=== PATIENT | male | born 1955 | race Caucasian/White ===

== ENCOUNTER 2023-10-05 19:28 | Emergency (ER) | payer MEDICARE, SELFPAY ==
[2023-10-05] VITALS (29 sets, daily range): BP systolic 137–218; BP diastolic 78–120; PULSE 8–113; RESP 19–31; TEMP 36.6; O2SAT 88–98; BMI 25.0
[2023-10-05] MEDS: IPRATROPIUM/ALBUTEROL SULFATE 3 ML AMPUL.NEB 6 ML IH (19:38)
--- NOTE | 2023-10-05 19:39 | XR_ITS ---
The [address] [address] Patient Name: CONSTANZA BARRETO MRN: [id number] date: 1955 Sex: M Assigned Patient Location: ER Current Patient Location: ER Accession/Order Number: [id number] Exam Date: 10/05/2023 20:13 Report Date: 10/05/2023 20:33 At the request of: KANE POLLOCK Procedure: XR chest 1V EXAM: XR chest 1V at 2014 hours HISTORY: cp COMPARISON: 03/30/2023 TECHNIQUE: AP upright portable chest x-ray FINDINGS: Very subtle opacity at the right lung base laterally suggest a small infiltrate. These findings may in part be chronic in nature. No acute infiltrate, effusion or pneumothorax is otherwise identified. The heart is not enlarged and the vasculature is not distended. Old rib fractures are noted on the left. XR/XR chest 1V IMPRESSION: Subtle opacity at the right lung base laterally suggesting an infiltrate. There may be some overlying chronic changes as well. There is no other evidence of a focal infiltrate or cardiac decompensation. The overall appearance of the chest is otherwise unchanged. Electronically authenticated by: DOMI ABBASI Date: 10/05/2023 20:33
--- NOTE | 2023-10-05 19:39 | ECG_ITS ---
The [facility] Test Date: 2023-10-05 Pat Name: Nic García Department: Room: - Gender: Male [place]: : 1955 Requested By: [id number] Order Number: [id number] Reading MD: CARLYN LITTLE Measurements Intervals [place] Rate: 109 P: 90 MN: 210 QRS: 80 QRSD: 110 T: 70 QT: 342 QTc: 406 Interpretive Statements 1120 Sinus tachycardia 2231 First degree AV block 3434 Septal myocardial infarction, age undetermined [address] depression, can't exclude inferolateral ischemia 6120 Possible right atrial enlargement 0102 ARTIFACT PRESENT 9150 abnormal ECG No previous ECG available for comparison Electronically Signed On 10-06-2023 7:13:27 EST by CARLYN LITTLE
[2023-10-05 19:52] LABS: Basophils Percent Auto 0.3 % (0.2-2.0); Eosinophils Absolute Auto 0.2 10^3/uL (0.0-0.7); Eosinophils Percent Auto 1.9 % (0.9-7.0); Hematocrit 47.3 % (42.0-54.0); Hemoglobin 15.2 g/dL (14.0-18.0); Immature Granulocytes Abs Auto 0.01 10^3/uL (0.00-0.03); Immature Granulocytes Pct Auto 0.1 % (0.0-0.5); Lymphocytes Absolute Auto 2.8 10^3/uL (1.2-3.8); Lymphocytes Percent Auto 28.5 % (20.5-60.0); Mean Corpuscular HGB Conc 32.1 g/dL (29.9-35.2); Mean Corpuscular Hemoglobin 29.7 pg (25.9-34.0); Mean Corpuscular Volume 92.4 fL (80.0-94.0); Monocytes Absolute Auto 0.7 10^3/uL (0.3-0.8); Monocytes Percent Auto 6.6 % (1.7-12.0); Neutrophils Absolute Auto 6.1 10^3/uL (1.4-6.5); Neutrophils Percent Auto 62.6 % (43.0-75.0); Platelet Count 189 10^3/uL (150-450); Red Blood Count 5.12 10^6/uL (4.70-6.10); Red Cell Distribution Width 13.1 % (11.0-15.0); White Blood Count 9.8 10^3/uL (4.0-11.0)
--- NOTE | 2023-10-05 19:57 | RESP.RT ---
Placed pt on 3L nasal cannula after breathing tx. Spo2 96%. RT attempted ABG but once needle was inserted into wrist pt jerked his arm back and demanded needle to be removed from wrist. No sample was obtained. Dr Crum notified.
[2023-10-05] MEDS: ONDANSETRON PF 4 MG/2 ML VIAL IV (20:18)
[2023-10-05] MEDS: LORAZEPAM 2 MG/ML 1 ML VIAL 1 MG IV (20:18)
[2023-10-05] MEDS: ASPIRIN 81 MG TAB.CHEW 162 MG PO (20:20)
[2023-10-05] MEDS: MAGNESIUM SULFATE IN WATER 2 GM/50 ML PREMIX IV (20:20)
[2023-10-05 20:26] LABS: Alanine Aminotransferase 30 U/L (16-63); Alkaline Phosphatase 87 U/L (46-116); Anion Gap 12.6; Aspartate Amino Transferase 22 U/L (15-37); BUN Creatinine Ratio 11.7; Bilirubin Total 0.5 mg/dL (0.2-1.0); Chloride 102 mmol/L (98-107); Estimated GFR (African America >60 (>=60); Estimated GFR (Non-African Ame >60 (>=60); Glucose 105 mg/dL (74-106); Potassium 3.6 mmol/L (3.5-5.1); Sodium 138 mmol/L (136-145); Total Protein 7.4 g/dL (6.4-8.2); Troponin I High Sensitivity 14.3 pg/mL (4.0-76.1)
[2023-10-05 20:27] LABS: Albumin Globulin Ratio 1.4; Albumin Level 4.3 g/dL (3.4-5.0); Globulin 3.1 g/dL
[2023-10-05 20:42] LABS: SARS-CoV-2 Ag NEGATIVE (NEGATIVE)
--- NOTE | 2023-10-05 21:07 | ED_ITS ---
HPI - General Adult General Chief complaint: Shortness of Breath/Dyspnea Stated complaint: DIFF BREATHING Time Seen by Provider: 10/05/23 19:38 Source: patient and EMR Mode of arrival: ambulance Limitations: no limitations History of Present Illness HPI narrative: Patient is a 68-year-old male who is presenting to the Emergency Room with chief complaint of difficulty breathing since this afternoon. Patient has a long- standing history of emphysema and chronic obstructive pulmonary disease. Patient still smokes 2 packs of cigarettes a day, patient does not wear oxygen at home. [facility] Patient does not have a building architectural designer. Patient passed PCP just recently moved away, he does not have a new PCP that he saw month ago. The next appointment with his PCP is in January. [facility]. Patient has never been intubated, patient believes his last admission last time he is on steroids was possibly in the summertime on steroids, last admission was over a year ago. Patient's never been intubated. Patient has no abdominal pain, nausea, vomiting, or any other acute complaints. No recent traveling. Patient was a home by himself. No chest pain, tightness, or any other acute complaints. Patient was given 2 albuterol breathing treatments by EMS prior to arrival. Patient was also given one dose of IV 125mg Solu-Medrol prior to arrival. . All systems are negative except as noted/marked. All systems reviewed and otherwise negative. . Nurses note and vital signs reviewed and patient is not hypoxic. General: The patient appears In mild respiratory distress secondary to anxiety, difficulty breathing. Patient is resting comfortably on cart. Patient is not toxic, lethargic, or listless Skin: Warm, dry, no pallor noted. There is no rash noted. No petechiae, purpura. Head: Normocephalic, atraumatic Eye: Normal conjunctiva, no drainage, EOMI. PERRL Ears, Nose, Mouth, and Throat: oral mucosa is moist. Nares patent. Mouth without vesicles. Cardiovascular: Regular Rate and Rhythm, no murmur, gallop, rub Respiratory: Patient is in Mild respiratory distress, patient is anxious,, no accessory muscle use, lungs are Decreased bilateral, no faint breath sounds bilateral, no audible wheezing, rales or rhonchi noted. Patient has poor air exchange bilateral. Equal breath sounds, no tracheal deviation. Back: non-tender, no CVA tenderness bilaterally to percussion. No CT LS midline pain GI: soft, no tenderness to palpation, no masses appreciated. No rebound, guarding, or rigidity noted. No flank pain bilateral, No distention Musculoskeletal: Patient has full range of motion of all of the extremities, no motor, sensory, or focal neurological deficits Neurological: A&O x3, normal speech Psychiatric: Cooperative Related Data Previous Rx's Medication Instructions Recorded prednisone 50 mg tablet 50 mg PO DAILY 3 days #3 tabs 10/05/23 Allergies Allergy/AdvReac Type Severity Reaction Status Date / Time No Known Drug Allergies Allergy Verified 10/05/23 19:40 PFSH PFS Social History Smoking status: Current every day smoker Exam Constitutional Vital Signs, click to edit/add: Last Vital Signs Temp 98 F 10/05/23 19:32 Pulse 108 H 10/05/23 22:00 Resp 19 10/05/23 22:00 BP 153/84 H 10/05/23 21:50 Pulse Ox 88 L 10/05/23 22:00 O2 Del Method Room Air 10/05/23 21:50 O2 Flow Rate 3 10/05/23 19:58 Course Vital Signs Vital signs: Vital Signs Temperature 98 F 10/05/23 19:32 Pulse Rate 104 H 10/05/23 19:32 Respiratory Rate 28 H 10/05/23 19:32 Blood Pressure 200/120 H 10/05/23 19:32 Pulse Oximetry 98 10/05/23 19:32 Oxygen Delivery Method Simple Mask 10/05/23 19:32 Oxygen Delivery Flow Rate 5 10/05/23 19:32 Temperature 98 F 10/05/23 19:32 Pulse Rate 108 H 10/05/23 22:00 Respiratory Rate 19 10/05/23 22:00 Blood Pressure 153/84 H 10/05/23 21:50 Pulse Oximetry 88 L 10/05/23 22:00 Oxygen Delivery Method Room Air 10/05/23 21:50 Oxygen Delivery Flow Rate 3 10/05/23 19:58 Medical Decision Making MDM Narrative Medical decision making narrative: Patient chest x-ray shows questionable right opacity. Patient has no elevated white blood cell count. He has no cough, no fever, he did develop shortness of breath this afternoon. Patient was given site Medrol by EMS, along with 2 albuterol breathing treatments and 2 DuoNeb breathing treatments in the Emergency Room. Patient is given magnesium. Labwork shows no acute findings. Chest x-ray and troponin were negative. Patient is 89-90 percent on room air sitting down. Patient was ambulating, he was approximately 80-91 percent. Lab Data Lab results reviewed: Yes I reviewed the patient's lab results Labs: Lab Results 10/05/23 10/05/23 Range/Units 19:44 19:50 WBC 9.8 (4.0-11.0) 10^3/uL RBC 5.12 (4.70-6.10) 10^6/uL Hgb 15.2 (14.0-18.0) g/dL Hct 47.3 (42.0-54.0) % MCV 92.4 (80.0-94.0) fL MCH 29.7 (25.9-34.0) pg MCHC 32.1 (29.9-35.2) g/dL RDW 13.1 (11.0-15.0) % Plt Count 189 (150-450) 10^3/uL MPV 9.0 L (9.5-13.5) fL Neut % (Auto) 62.6 (43.0-75.0) % Lymph % (Auto) 28.5 (20.5-60.0) % [place] % (Auto) 6.6 (1.7-12.0) % Eos % (Auto) 1.9 (0.9-7.0) % Baso % (Auto) 0.3 (0.2-2.0) % Neut # (Auto) 6.1 (1.4-6.5) 10^3/uL Lymph # (Auto) 2.8 (1.2-3.8) 10^3/uL [place] # (Auto) 0.7 (0.3-0.8) 10^3/uL Eos # (Auto) 0.2 (0.0-0.7) 10^3/uL Baso # (Auto) 0.0 (0.0-0.1) 10^3/uL Abs Immat Gran (auto) 0.01 (0.00-0.03) 10^3/uL Imm/Tot Granulo (auto) 0.1 (0.0-0.5) % Sodium 138 (136-145) mmol/L Potassium 3.6 (3.5-5.1) mmol/L Chloride 102 (98-107) mmol/L Carbon Dioxide 27.0 (21.0-32.0) mmol/L Anion Gap 12.6 BUN 9.0 (7.0-18.0) mg/dL Creatinine 0.77 (0.70-1.30) mg/dL Est GFR ( Amer) >60 (>=60) Est GFR (Non-Af Amer) >60 (>=60) BUN/Creatinine Ratio 11.7 Glucose 105 (74-106) mg/dL Calcium 9.0 (8.5-10.1) mg/dL Total Bilirubin 0.5 (0.2-1.0) mg/dL AST 22 (15-37) U/L ALT 30 (16-63) U/L Alkaline Phosphatase 87 (46-116) U/L Troponin I High Sens 14.3 (4.0-76.1) pg/mL NT-Pro-B Natriuret Pep 245.0 (<=900.0) pg/mL Total Protein 7.4 (6.4-8.2) g/dL Albumin 4.3 (3.4-5.0) g/dL Globulin 3.1 g/dL Albumin/Globulin Ratio 1.4 Lipase 14.0 L (16.0-77.0) U/L SARS-CoV-2 (PCR) Negative (NEGATIVE) No acute findings, troponin is negative. ECG Data Attestation: I personally reviewed and interpreted this ECG as follows: (EKG interpretation. Artifact noted.Normal sinus rhythm at 109 beats a minute. Normal axis deviation. No acute ST elevation, no acute ectopy. QTC of 406) Discharge Plan Discharge Chief Complaint: Shortness of Breath/Dyspnea Clinical Impression: Tobacco abuse counseling, Dyspnea, Tobacco abuse, COPD (chronic obstructive pulmonary disease) Patient Disposition: Home, Self-Care Time of Disposition Decision: 22:23 Condition: Fair Prescriptions / Home Meds: New prednisone 50 mg tablet 50 mg PO DAILY 3 Days Qty: 3 0RF Instructions: How to Stop Smoking (ED), COPD (Chronic Obstructive Pulmonary Disease) (ED), Dyspnea (ED) Additional Instructions: [facility] your appointment from [facility] and make sure he told him there in the Emergenccy Room this evening for chronic obstructive pulmonary disease exacerbation. He needs to be referred to a building architectural designer as well. Local building architectural designer name and number has been given to you, Dr. Meza. Start taking her next dose of prednisone tomorrow. Tobacco cessation has been discussed at bedside and on discharge paperwork. Stand Alone Forms: Portal Instructions Referrals: Iker Meza DO [Physician] - 1 week Physician,Non-Staff, MD [Primary Care Provider] - 1 week
[2023-10-06 10:06] LABS: SARS-CoV-2 NAA NOT DETECTED (NOT DETECTE)
== END 2023-10-05 22:58 | disposition home or self-care (01) ==
PROVIDERS: Emergency Provider Emergency Medicine
DX: R06.00 Dyspnea, unspecified (principal); J43.9 Emphysema, unspecified; F17.210 Nicotine dependence, cigarettes, uncomplicated; Z20.822 Contact with and (suspected) exposure to COVID-19
CPT/HCPCS: 36415; 71045; 80053; 82805; 83690; 83880; 84484; 85025; 87635; 87811; 93005; 94640; 96365; 96375; 99285

== ENCOUNTER 2023-10-15 20:42 | Observation (INO) | payer MEDICARE, SELFPAY ==
[2023-10-15] VITALS (21 sets, daily range): BP systolic 150–183; BP diastolic 93–122; PULSE 93–117; RESP 19–27; TEMP 36.9; O2SAT 80–98; BMI 26.6
--- NOTE | 2023-10-15 20:52 | ED_ITS ---
HPI - SOB/Dyspnea General Chief Complaint: Shortness of Breath/Dyspnea Stated Complaint: SOB COPD HX Time Seen by Provider: 10/15/23 20:45 Source: patient Mode of arrival: ambulance History of Present Illness HPI Narrative: This 68-year-old male with a history of chronic obstructive pulmonary disease presents for evaluation of 2 days of increasing shortness of breath with coughing. He has a nonproductive cough. He denies any chest pain or hemoptysis. He has not had a fever. He was seen in this emergency department on 10/05/2023. He was found to have an infiltrate in the right lower lung at that time. He has not followed up with his family physician at the [facility]. He was discharged home on antibiotics and steroids. He states that he has been using his inhalers and nebulizers. His shortness of breath is currently improved after using a nebulizer treatment prior to calling EMS. He has no nausea vomiting or diarrhea. He has chronic lower extremity edema which is unchanged. There is no calf swelling or tenderness. He does admit that he continues to smoke. upon arrival he wanted to know when he could call his ride because he was feeling better. Related Data Allergies Allergy/AdvReac Type Severity Reaction Status Date / Time No Known Drug Allergies Allergy Verified 10/05/23 19:40 Review of Systems ROS Status of ROS 10 or more systems reviewed and unremarkable except as noted in history and below [facility] Social History Smoking status: Current every day smoker Exam Narrative Exam Narrative: Nurses note and vital signs reviewed; He is afebrile, he is not tachycardic with a possible 113, blood pressure is elevated 166/104, he is mildly hypoxic but likely at his baseline with a pulse ox 93 percent on room air General: The patient appears well and in no apparent distress. Patient is resting comfortably on The side of the cart, speaking in complete sentences, no respiratory distress Skin: Warm, dry, no pallor noted. There is no rash noted. Head: Normocephalic, atraumatic Eye: Normal conjunctiva, no drainage, EOMI. PERRL Ears, Nose, Mouth, and Throat: oral mucosa is moist. Nares patent. Mouth without vesicles. Ear canals patent. Tm's without Erythema Cardiovascular: Regular Rate and Rhythm S1S2, no murmurs, rubs or gallops Respiratory: Patient is in no distress, he is speaking in complete sentences, there are faint expiratory wheezes bilaterally, no rhonchi or rales appreciated, no accessory muscle use Back: non-tender, no CVA tenderness bilaterally to percussion. GI: Normal bowel sounds, no tenderness to palpation, no masses appreciated. No rebound, guarding, or rigidity noted. Musculoskeletal: Lower extremities have chronic changes of erythema and thickened skin with mild (1+) edema, no calf swelling or tenderness noted Neurological: A&O x4, normal speech Psychiatric: Cooperative Constitutional Vital Signs, click to edit/add: Last Vital Signs Temp 98.5 F 10/15/23 20:44 Pulse 84 10/16/23 00:30 Resp 25 H 10/15/23 22:40 BP 174/96 H 10/16/23 00:30 Pulse Ox 94 L 10/16/23 00:30 O2 Del Method Room Air 10/15/23 22:02 Course Vital Signs Vital signs: Vital Signs Temperature 98.5 F 10/15/23 20:44 Pulse Rate 113 H 10/15/23 20:44 Respiratory Rate 26 H 10/15/23 20:44 Blood Pressure 166/104 H 10/15/23 20:44 Pulse Oximetry 98 10/15/23 20:44 Oxygen Delivery Method Room Air 10/15/23 20:44 Temperature 98.5 F 10/15/23 20:44 Pulse Rate 84 10/16/23 00:30 Respiratory Rate 25 H 10/15/23 22:40 Blood Pressure 174/96 H 10/16/23 00:30 Pulse Oximetry 94 L 10/16/23 00:30 Oxygen Delivery Method Room Air 10/15/23 22:02 MDM - SOB/Dyspnea MDM Narrative Medical decision making narrative: This 68-year-old male with a history of COPD who continues to smoke and was here on October 05 for a chronic obstructive pulmonary disease exacerbation and discharged home with steroids and Augmentin presents for evaluation of increasing shortness of breath for the past several days. He has an occasional cough that is nonproductive. He denies any chest pain. He does admit that he has had some chills. He has no nausea or vomiting. He had several nebulizer treatments and his MDI prior to coming to the hospital and upon arrival stated that he was feeling better. I convinced him to at least let us check him out. EKG done upon arrival is a sinus tachycardia at 111 bpm with normal axis, no acute changes were noted. IV was placed and he was given IV Solu-Medrol, IV magnesium and an additional DuoNeb treatment. His pulse ox has been in the low 90s. Routine labs are reviewed. He has a white count today of 16.8. I do not think this is related to his steroid use 10 days ago. He has normal troponin. Comprehensive metabolic profile is normal. Lactic acid is mildly elevated at 2.3. His chest x-ray shows an increase in the opacity noted on October 05 in the right lower quadrant concerning for pneumonia. Since she was recently on Augmentin he was given a dose of IV Levaquin in the emergency department. I signed to him that I am concerned about the increasing right lower lobe infiltrate and him going home, he lives alone, he is a and does not have any family physician that he can follow-up with. He did agree to admission. The case was discussed with the hospitalist and he is admitted for admission to [facility]. Observation status. Medical Records Medical records narrative: [place] [address] XRay Report Signed Patient: CONSTANZA BARRETO MR#: [id number] : 1955 Acct:[id number] Age/Sex: 68 / M ADM Date: 10/15/23 Loc: ER Attending Dr: Ordering Physician: Miladis Melara Date of Service: 10/15/23 Procedure(s): XR chest 2V Accession Number(s): [id number] cc: Miladis Melara; Physician,Non-Staff M.D.~ The [place] [id number] Patient Name: CONSTANZA BARRETO MRN: [id number] date: 1955 Sex: M Assigned Patient Location: ER Current Patient Location: ER Accession/Order Number: [id number] Exam Date: 10/15/2023 21:08 Report Date: 10/15/2023 21:24 At the request of: MILADIS MELARA Procedure: XR chest 2V EXAM: XR chest 2V HISTORY: SOB, Hx COPD COMPARISON: Chest x-ray 10/05/2023 TECHNIQUE: PA and lateral chest FINDINGS: No pneumothorax or effusion. Patchy opacity of the right lower lobe could reflect an infectious process. Multiple bilateral chronic rib fractures. XR/XR chest 2V IMPRESSION: Patchy opacity at the right lower lobe could reflect an infectious process. Otherwise, no acute cardiac pulmonary process. Electronically authenticated by: ANAMARIA DUENAS Date: 10/15/2023 21:24 Lab Data Labs: Lab Results 10/15/23 10/15/23 Range/Units 21:33 22:30 WBC 16.8 H (4.0-11.0) 10^3/uL RBC 5.09 (4.70-6.10) 10^6/uL Hgb 15.5 (14.0-18.0) g/dL Hct 47.2 (42.0-54.0) % MCV 92.7 (80.0-94.0) fL MCH 30.5 (25.9-34.0) pg MCHC 32.8 (29.9-35.2) g/dL RDW 13.1 (11.0-15.0) % Plt Count 211 (150-450) 10^3/uL MPV 9.6 (9.5-13.5) fL Neut % (Auto) 85.4 H (43.0-75.0) % Lymph % (Auto) 9.0 L (20.5-60.0) % [place] % (Auto) 4.2 (1.7-12.0) % Eos % (Auto) 0.8 L (0.9-7.0) % Baso % (Auto) 0.3 (0.2-2.0) % Neut # (Auto) 14.3 H (1.4-6.5) 10^3/uL Lymph # (Auto) 1.5 (1.2-3.8) 10^3/uL [place] # (Auto) 0.7 (0.3-0.8) 10^3/uL Eos # (Auto) 0.1 (0.0-0.7) 10^3/uL Baso # (Auto) 0.1 (0.0-0.1) 10^3/uL Abs Immat Gran (auto) 0.05 H (0.00-0.03) 10^3/uL Imm/Tot Granulo (auto) 0.3 (0.0-0.5) % Sodium 137 (136-145) mmol/L Potassium 3.9 (3.5-5.1) mmol/L Chloride 101 (98-107) mmol/L Carbon Dioxide 26.9 (21.0-32.0) mmol/L Anion Gap 13.0 BUN 10.0 (7.0-18.0) mg/dL Creatinine 0.81 (0.70-1.30) mg/dL Est GFR ( Amer) >60 (>=60) Est GFR (Non-Af Amer) >60 (>=60) BUN/Creatinine Ratio 12.3 Glucose 188 H (74-106) mg/dL Lactate 2.3 H* (0.4-2.0) mmol/L Calcium 8.9 (8.5-10.1) mg/dL Total Bilirubin 0.5 (0.2-1.0) mg/dL AST 32 (15-37) U/L ALT 44 (16-63) U/L Alkaline Phosphatase 83 (46-116) U/L Troponin I High Sens 45.2 (4.0-76.1) pg/mL NT-Pro-B Natriuret Pep 121.0 (<=900.0) pg/mL Total Protein 7.2 (6.4-8.2) g/dL Albumin 4.1 (3.4-5.0) g/dL Globulin 3.1 g/dL Albumin/Globulin Ratio 1.3 ECG Data Attestation: I personally reviewed and interpreted this ECG as follows: (Sinus tachycardia at 111 beats for minute, normal axis, nonspecific ST changes, no acute ST segment elevation or T-wave inversion) Discharge Plan Discharge Chief Complaint: Shortness of Breath/Dyspnea Clinical Impression: COPD (chronic obstructive pulmonary disease), RLL pneumonia Patient Disposition: Admitted as Observation Time of Disposition Decision: 01:29 Condition: Fair Referrals: Physician,Non-Staff, MD [Primary Care Provider] - 1 week
--- NOTE | 2023-10-15 20:58 | ECG_ITS ---
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
--- NOTE | 2023-10-15 20:58 | XR_ITS ---
The [place] [id number] Patient Name: CONSTANZA BARRETO MRN: [id number] date: 1955 Sex: M Assigned Patient Location: ER Current Patient Location: ER Accession/Order Number: [id number] Exam Date: 10/15/2023 21:08 Report Date: 10/15/2023 21:24 At the request of: MILADIS MARKER Procedure: XR chest 2V EXAM: XR chest 2V HISTORY: SOB, Hx COPD COMPARISON: Chest x-ray 10/05/2023 TECHNIQUE: PA and lateral chest FINDINGS: No pneumothorax or effusion. Patchy opacity of the right lower lobe could reflect an infectious process. Multiple bilateral chronic rib fractures. XR/XR chest 2V IMPRESSION: Patchy opacity at the right lower lobe could reflect an infectious process. Otherwise, no acute cardiac pulmonary process. Electronically authenticated by: ANAMARIA DUENAS Date: 10/15/2023 21:24
--- NOTE | 2023-10-15 21:31 | PC.NURSE ---
Pt presents to ER for a COPD exacerbation which he states improved prior to arrival Pt administered an at home nebulizer treatment and felt better by the time squad arrived On arrival pt states when is it time for me to call for my ride Dr. Ag explains to pt that she would like to do an assessment Pt agrees
[2023-10-15 21:45] LABS: Basophils Absolute Auto 0.1 10^3/uL (0.0-0.1); Basophils Percent Auto 0.3 % (0.2-2.0); Eosinophils Absolute Auto 0.1 10^3/uL (0.0-0.7); Eosinophils Percent Auto 0.8 % (0.9-7.0); Hematocrit 47.2 % (42.0-54.0); Hemoglobin 15.5 g/dL (14.0-18.0); Immature Granulocytes Abs Auto 0.05 10^3/uL (0.00-0.03); Immature Granulocytes Pct Auto 0.3 % (0.0-0.5); Lymphocytes Absolute Auto 1.5 10^3/uL (1.2-3.8); Mean Corpuscular HGB Conc 32.8 g/dL (29.9-35.2); Mean Corpuscular Hemoglobin 30.5 pg (25.9-34.0); Mean Corpuscular Volume 92.7 fL (80.0-94.0); Mean Platelet Volume 9.6 fL (9.5-13.5); Monocytes Absolute Auto 0.7 10^3/uL (0.3-0.8); Monocytes Percent Auto 4.2 % (1.7-12.0); Neutrophils Absolute Auto 14.3 10^3/uL (1.4-6.5); Neutrophils Percent Auto 85.4 % (43.0-75.0); Platelet Count 211 10^3/uL (150-450); Red Blood Count 5.09 10^6/uL (4.70-6.10); Red Cell Distribution Width 13.1 % (11.0-15.0); White Blood Count 16.8 10^3/uL (4.0-11.0)
[2023-10-15] MEDS: IPRATROPIUM/ALBUTEROL SULFATE 3 ML AMPUL.NEB IH (21:53)
[2023-10-15 21:57] LABS: Alanine Aminotransferase 44 U/L (16-63); Albumin Globulin Ratio 1.3; Albumin Level 4.1 g/dL (3.4-5.0); Alkaline Phosphatase 83 U/L (46-116); Aspartate Amino Transferase 32 U/L (15-37); BUN Creatinine Ratio 12.3; Bilirubin Total 0.5 mg/dL (0.2-1.0); Calcium 8.9 mg/dL (8.5-10.1); Carbon Dioxide 26.9 mmol/L (21.0-32.0); Chloride 101 mmol/L (98-107); Estimated GFR (African America >60 (>=60); Estimated GFR (Non-African Ame >60 (>=60); Globulin 3.1 g/dL; Glucose 188 mg/dL (74-106); Potassium 3.9 mmol/L (3.5-5.1); Sodium 137 mmol/L (136-145); Total Protein 7.2 g/dL (6.4-8.2)
[2023-10-15 22:03] LABS: Troponin I High Sensitivity 45.2 pg/mL (4.0-76.1)
[2023-10-15] MEDS: MAGNESIUM SULFATE IN WATER 2 GM/50 ML PREMIX IV (22:08)
[2023-10-15] MEDS: METHYLPREDNISOLONE SOD SUCC PF 125 MG/2 ML VIAL IVP (22:09)
[2023-10-15 22:57] LABS: Lactate/Lactic Acid 2.3 mmol/L (0.4-2.0)
[2023-10-15] MEDS: LEVOFLOXACIN IN DEXTROSE 5 % 750 MG/150 ML IV.SOLN 100 MG IV (23:08)
[2023-10-16] VITALS (19 sets, daily range): BP systolic 165–187; BP diastolic 83–111; PULSE 77–118; RESP 18–20; TEMP 36.7–36.8; O2SAT 90–96; BMI 23.6
[2023-10-16 01:52] LABS: Lactate/Lactic Acid 1.5 mmol/L (0.4-2.0)
--- NOTE | 2023-10-16 03:14 | W.PM.TELEPN ---
Progress Note: Subjective Subjective Interval history: Pt is 68M with PMH of COPD, active tobacco smoker 2 PPD, former heavy EtOH who presented to the ED with complaints of shortness of breath and dry cough. He was recentlky seen on 10/05 for the same complaints and was noted to have a mild infiltrate of the RLL at that time. He was prescribed Augmentin and steroids and discharged from the ED. Since then, he has taken the antibiotic but his symptoms have worsened. He continues to have shortness of breath, chills, dry cough. He was noted in the ED to have elevated lactic acid, and a repeat CXR shows marked worsening of RLL infiltrate. He is recommended for admission for Pneumonia. At the time of my exam, patient states he has had no sick contacts, travel, No fever, no chest pain, no nausea or vomiting. The remiander of the ROS is negative. Pt has 2 sons Wishes to be Full code. He cannot recall his home meds He does not report any OK, CVA, or Cancer in either of his parents. Exam Narrative Exam Narrative: General: NAD HEENT: NC/AT Lungs; Diminished CV: RRR, No murmur GI: nonternder Neuro: AAOx3 Psych: Calm, cooperative Constitutional Vital Signs, click to edit/add: Last Vital Signs Temp 98.0 F 10/16/23 01:57 Pulse 85 10/16/23 01:57 Resp 18 10/16/23 01:57 BP 184/102 H 10/16/23 01:57 Pulse Ox 92 L 10/16/23 01:57 O2 Del Method Room Air 10/16/23 01:57 Progress Note: Objective Labs Labs: Short CBC 10/15/23 Range/Units 21:33 WBC 16.8 H (4.0-11.0) 10^3/uL Hgb 15.5 (14.0-18.0) g/dL Hct 47.2 (42.0-54.0) % Plt Count 211 (150-450) 10^3/uL BMP 10/15/23 21:33 Sodium 137 Potassium 3.9 Chloride 101 Carbon Dioxide 26.9 BUN 10.0 Creatinine 0.81 Glucose 188 H Calcium 8.9 Liver Function 10/15/23 Range/Units 21:33 Total Bilirubin 0.5 (0.2-1.0) mg/dL AST 32 (15-37) U/L ALT 44 (16-63) U/L Alkaline Phosphatase 83 (46-116) U/L Albumin 4.1 (3.4-5.0) g/dL Progress Note: A&P Assessment and Plan (1) RLL pneumonia: Plan RLL Pneumonia - Admit to inpatient - Nebs PRN - No steroids, not wheezing - O2 as needed, currently on RA - Robitussen - Levaquin - Strep Urine Ag sent - MRSA nares Tobacco smoker - Advise abstinence - declines NRT Telemedicine Attestation Telemedicine Attestation I conducted this encounter from [[place]] via secure live, [id number] video conference with the patient, located at THE [facility] with [nurse]. Prior to the interview, the risks and benefits of telemedicine were discussed with the patient and verbal consent was obtained.
[2023-10-16] MEDS: ENOXAPARIN SODIUM 40 MG/0.4 ML SYRINGE SUBQ (04:02)
[2023-10-16] MEDS: HYDRALAZINE HCL 20 MG/ML VIAL 10 MG IVP ×2 (04:02→08:41)
[2023-10-16] MEDS: LEVOFLOXACIN IN DEXTROSE 5 % 750 MG/150 ML IV.SOLN 100 MG IV (04:03)
[2023-10-16 05:07] LABS: Basophils Percent Auto 0.1 % (0.2-2.0); Hematocrit 45.3 % (42.0-54.0); Hemoglobin 14.9 g/dL (14.0-18.0); Immature Granulocytes Abs Auto 0.02 10^3/uL (0.00-0.03); Immature Granulocytes Pct Auto 0.3 % (0.0-0.5); Lymphocytes Absolute Auto 0.5 10^3/uL (1.2-3.8); Mean Corpuscular HGB Conc 32.9 g/dL (29.9-35.2); Mean Corpuscular Hemoglobin 30.2 pg (25.9-34.0); Mean Corpuscular Volume 91.9 fL (80.0-94.0); Mean Platelet Volume 9.5 fL (9.5-13.5); Monocytes Absolute Auto 0.1 10^3/uL (0.3-0.8); Monocytes Percent Auto 0.7 % (1.7-12.0); Neutrophils Absolute Auto 6.9 10^3/uL (1.4-6.5); Neutrophils Percent Auto 91.9 % (43.0-75.0); Platelet Count 213 10^3/uL (150-450); Red Blood Count 4.93 10^6/uL (4.70-6.10); White Blood Count 7.5 10^3/uL (4.0-11.0)
[2023-10-16 05:22] LABS: Magnesium 2.2 mg/dL (1.8-2.4)
[2023-10-16 05:24] LABS: Alanine Aminotransferase 39 U/L (16-63); Albumin Globulin Ratio 1.3; Albumin Level 3.7 g/dL (3.4-5.0); Alkaline Phosphatase 79 U/L (46-116); Anion Gap 15.5; Aspartate Amino Transferase 21 U/L (15-37); BUN Creatinine Ratio 9.7; Bilirubin Total 0.4 mg/dL (0.2-1.0); Calcium 8.5 mg/dL (8.5-10.1); Chloride 102 mmol/L (98-107); Estimated GFR (African America >60 (>=60); Estimated GFR (Non-African Ame >60 (>=60); Globulin 2.9 g/dL; Glucose 207 mg/dL (74-106); Potassium 3.5 mmol/L (3.5-5.1); Sodium 140 mmol/L (136-145); Total Protein 6.6 g/dL (6.4-8.2)
[2023-10-16 05:30] LABS: Internal Control Within Normal Limits; Strep A Antigen Screen Negative
[2023-10-16] MEDS: IPRATROPIUM/ALBUTEROL SULFATE 3 ML AMPUL.NEB IH (07:16)
[2023-10-16] MEDS: NICOTINE 21 MG PATCH TD (07:24)
[2023-10-16] MEDS: METHYLPREDNISOLONE SOD SUCC PF 125 MG/2 ML VIAL 60 MG IVP (07:24)
[2023-10-16 07:37] LABS: SARS-CoV-2 Ag NEGATIVE (NEGATIVE)
--- NOTE | 2023-10-16 07:56 | PM.HP ---
H&P: HPI History of Present Illness Chief complaint: SOB COPD HX LLL PNEUMONIC Narrative: Pt treated as an out-pt woth pneumonia - presented to ER with inc cough - In er with leukocytosis - + lactate - today when i saw him feels much better, back to normal self Review of Systems ROS Status of ROS 10 or more systems reviewed and unremarkable except as noted in history and below Constitutional Denies: fever or chills PFSH PFSH Social History Smoking status: Current every day smoker Meds Home Medications and Allergies Home Medications Medication Instructions Recorded Confirmed Type levofloxacin 750 mg tablet 750 mg PO DAILY 10 days #10 tabs 10/16/23 Rx prednisone 20 mg tablet 60 mg PO DAILY 5 days #15 tabs 10/16/23 Rx Allergies Allergy/AdvReac Type Severity Reaction Status Date / Time No Known Drug Allergies Allergy Verified 10/16/23 01:52 Exam Constitutional Vital Signs, click to edit/add: Last Vital Signs Temp 98.2 F 10/16/23 05:54 Pulse 102 H 10/16/23 05:54 Resp 20 10/16/23 05:54 BP 184/96 H 10/16/23 05:54 Pulse Ox 94 L 10/16/23 07:18 O2 Del Method Room Air 10/16/23 07:18 Documenting provider has reviewed patient's vital signs: yes Common normals: no apparent distress Lymph Lymphatic: no lymphadenopathy noted Chest Common normals: inspection of chest normal Respiratory Common normals: normal respiratory effort and no retractions Auscultation: diminished lung sounds Cardio Common normals: regular rate and regular rhythm Results Labs Labs: Short CBC 10/15/23 10/16/23 Range/Units 21:33 04:00 WBC 16.8 H 7.5 (4.0-11.0) 10^3/uL Hgb 15.5 14.9 (14.0-18.0) g/dL Hct 47.2 45.3 (42.0-54.0) % Plt Count 211 213 (150-450) 10^3/uL BMP 10/15/23 10/16/23 21:33 04:00 Sodium 137 140 Potassium 3.9 3.5 Chloride 101 102 Carbon Dioxide 26.9 26.0 BUN 10.0 7.0 Creatinine 0.81 0.72 Glucose 188 H 207 H Calcium 8.9 8.5 Liver Function 10/15/23 10/16/23 Range/Units 21:33 04:00 Total Bilirubin 0.5 0.4 (0.2-1.0) mg/dL AST 32 21 (15-37) U/L ALT 44 39 (16-63) U/L Alkaline Phosphatase 83 79 (46-116) U/L Albumin 4.1 3.7 (3.4-5.0) g/dL Assessment and Plan Assessment and Plan (1) RLL pneumonia: Plan Mild tachycardia, uncontrolled hypertension, mild respiratory distress secondary to left lower lobe pneumonia, also positive lactate and leukocytosis. Lactate cleared quickly leukocytosis is resolved today, he states his breathing is back to normal. He would like to be discharged home. Will discharge patient home with a change of antibiotics. Short course of prednisone for an acute exacerbation of his COPD related to the left lower lobe pneumonia. Medications see list. Follow-up with PCP as an outpatient. Next week
--- NOTE | 2023-10-16 08:05 | CM.NOTE ---
Rounds made with Dr. Trammell. Encouraged to ambulate in room and receive HHN and IV antibiotics today and then may discharge to home. Mr. García in agreement.
--- NOTE | 2023-10-16 09:01 | PC.NURSE ---
patient very adamant he is going home this morning. RN rechecked his BP, reading spb 172. IV hydralazine given. Patient unsure of what medications he takes at home but states it is a BP med and a stomach med. SBP still [address] Trammell aware. States to just remind patient to take his home meds when he gets home. Patient verbalizes understanding
--- NOTE | 2023-10-16 10:08 | CM.NOTE ---
Medicare Outpatient Observation Notice discussed with pt, pt verbalizes understanding and signs paper. Original given to pt and copy placed on pt's chart.
[2023-10-17 10:27] LABS: SARS-CoV-2 NAA NOT DETECTED (NOT DETECTE)
--- NOTE | 2023-10-19 11:50 | CM.DCFOLLOWU ---
Person spoke with: patient How are you feeling? ok How is your pain? none Did you understand your discharge instructions? yes Do you have any questions about your discharge instructions? no Were you given any prescriptions at discharge? yes Were you able to get your prescriptions filled? no. Asked patient why, he states laziness . I highly encouraged patient to mixing picker tender his medications as they are important an antibiotic and steroid that the doctor felt he needed. Patient states they called me this morning and asked about picking them up, I said put them back on shelf, I am feeling fine. Do you understand how to take your medications as ordered? see above Do you have any questions about your follow up appointment and do you plan to keep your follow up appointment? Patient does not have a primary care provider, encouraged patient to review list he was given in hospital and call [facility] and make an appointment with a local provider, patient promised me he would. Is there anything else that you would like to discuss? re-discussed the importance of getting a primary care provider, scheduling a follow up appointment and taking medications as they are prescribed. Patient states I will honey. Questions/Comments/Concerns/Other: n/a
== END 2023-10-16 09:43 | disposition home or self-care (01) ==
LOC: ER 10-16 01:29 → MS 10-16 01:46
PROVIDERS: Internal Medicine; Admitting Provider Family Medicine; Emergency Provider Emergency Medicine; Visit Provider Family Medicine
DX: J18.9 Pneumonia, unspecified organism (principal); J44.0 Chronic obstructive pulmonary disease with (acute) lower respiratory infection; J44.1 Chronic obstructive pulmonary disease with (acute) exacerbation; I10 Essential (primary) hypertension; R06.03 Acute respiratory distress; F17.210 Nicotine dependence, cigarettes, uncomplicated; R06.02 Shortness of breath
CPT/HCPCS: 36415; 71046; 80053; 83605; 83735; 83880; 84484; 85025; 87040; 87070; 87081; 87635; 87811; 87880; 93005; 94640; 94667; 94761; 96365; 96366; 96367; 96372; 96375; 96376; 99285; G0378; J2930; Q3014

== ENCOUNTER 2023-10-22 22:01 | Emergency (ER) | payer MEDICARE, SELFPAY ==
[2023-10-22 22:04] VITALS: BP 186/93; PULSE 100; RESP 24; TEMP 36.9; O2SAT 94; BMI 25.0
--- NOTE | 2023-10-22 22:21 | ED.SOB1 ---
HPI - SOB/Dyspnea General Chief Complaint: Shortness of Breath/Dyspnea Stated Complaint: Shorthness of Breath Time Seen by Provider: 10/22/23 22:17 Source: patient Mode of arrival: walk-in Limitations: no limitations History of Present Illness HPI Narrative: history of COPD daily smoker. Recent hospitalization. Was not able to afford prescribed medication at discharge and did not pick them up. States increased dyspnea past couple of days. Had nausea earlier but states it resolved after he ate a meal. no chest or abdominal pain. Dry cough MD elicited complaint: shortness of breath and cough Pertinent past history: COPD Related Data Home Medications Medication Instructions Recorded Confirmed losartan 25 mg tablet (Cozaar) 25 mg PO DAILY 10/22/23 10/22/23 omeprazole 20 mg capsule,delayed 20 mg PO DAILY 10/22/23 10/22/23 release Allergies Allergy/AdvReac Type Severity Reaction Status Date / Time No Known Drug Allergies Allergy Verified 10/16/23 01:52 Review of Systems ROS Status of ROS 10 or more systems reviewed and unremarkable except as noted in history and below [facility] Medical History (Updated 10/22/23 @ 23:40 by Júnior Andrade MD) COPD (chronic obstructive pulmonary disease) ?J44.9 - Chronic obstructive pulmonary disease, unspecified (ICD-10) RLL pneumonia ?J18.9 - Pneumonia, unspecified organism (ICD-10) Social History Smoking status: Current every day smoker Exam Constitutional Vital Signs, click to edit/add: Last Vital Signs Temp 98.4 F 10/22/23 22:04 Pulse 69 10/22/23 23:38 Resp 20 10/22/23 23:38 BP 170/80 H 10/22/23 23:38 Pulse Ox 95 10/22/23 23:38 O2 Del Method Room Air 10/22/23 22:48 Common normals: no apparent distress, average body habitus, oriented x3, no limitations, healthy appearing, alert and well nourished Eye Common normals: EOMs intact bilaterally and conjunctivae normal Respiratory Common normals: normal respiratory effort, no use of accessory muscles and clear to auscultation bilaterally Cardio Common normals: regular rate, regular rhythm, S1 normal heart sound and S2 normal heart sound GI Common normals: Normal to inspection, nondistended, normoactive bowel sounds present, soft to palpation and non-tender Extremity Common normals: normal to inspection and full ROM Neuro Common normals: oriented x3, CN's II-XII intact bilaterally, moves all extremities, no focal motor deficits and no sensory deficits noted Psych Appearance: grossly normal Course Vital Signs Vital signs: Vital Signs Temperature 98.4 F 10/22/23 22:04 Pulse Rate 100 H 10/22/23 22:04 Respiratory Rate 24 10/22/23 22:04 Blood Pressure 186/93 H 10/22/23 22:04 Pulse Oximetry 94 L 10/22/23 22:04 Oxygen Delivery Method Room Air 10/22/23 22:04 Temperature 98.4 F 10/22/23 22:04 Pulse Rate 69 10/22/23 23:38 Respiratory Rate 20 10/22/23 23:38 Blood Pressure 170/80 H 10/22/23 23:38 Pulse Oximetry 95 10/22/23 23:38 Oxygen Delivery Method Room Air 10/22/23 22:48 MDM - SOB/Dyspnea MDM Narrative Medical decision making narrative: patient presents complaining of shortness of breath. Recent hospitlization for COPD exac. Did not picker prescribed discharged medication because he states he couldn't afford them. Arrives to the department in no distress. labs unremarkable. WBC elevated due to recent steroid use. cxray clear. Patient feeling better after dose of solumedrol and duoneb and discharged home Lab Data Labs: Lab Results 10/22/23 Range/Units 22:20 WBC 14.2 H (4.0-11.0) 10^3/uL RBC 4.54 L (4.70-6.10) 10^6/uL Hgb 14.0 (14.0-18.0) g/dL Hct 42.6 (42.0-54.0) % MCV 93.8 (80.0-94.0) fL MCH 30.8 (25.9-34.0) pg MCHC 32.9 (29.9-35.2) g/dL RDW 13.2 (11.0-15.0) % Plt Count 213 (150-450) 10^3/uL MPV 8.9 L (9.5-13.5) fL Neut % (Auto) 76.8 H (43.0-75.0) % Lymph % (Auto) 14.1 L (20.5-60.0) % [place] % (Auto) 5.8 (1.7-12.0) % Eos % (Auto) 2.5 (0.9-7.0) % Baso % (Auto) 0.4 (0.2-2.0) % Neut # (Auto) 10.9 H (1.4-6.5) 10^3/uL Lymph # (Auto) 2.0 (1.2-3.8) 10^3/uL [place] # (Auto) 0.8 (0.3-0.8) 10^3/uL Eos # (Auto) 0.4 (0.0-0.7) 10^3/uL Baso # (Auto) 0.1 (0.0-0.1) 10^3/uL Abs Immat Gran (auto) 0.05 H (0.00-0.03) 10^3/uL Imm/Tot Granulo (auto) 0.4 (0.0-0.5) % Sodium 137 (136-145) mmol/L Potassium 3.6 (3.5-5.1) mmol/L Chloride 103 (98-107) mmol/L Carbon Dioxide 25.8 (21.0-32.0) mmol/L Anion Gap 11.8 BUN 8.0 (7.0-18.0) mg/dL Creatinine 0.84 (0.70-1.30) mg/dL Est GFR ( Amer) >60 (>=60) Est GFR (Non-Af Amer) >60 (>=60) BUN/Creatinine Ratio 9.5 Glucose 197 H (74-106) mg/dL Calcium 8.7 (8.5-10.1) mg/dL Troponin I High Sens 14.2 (4.0-76.1) pg/mL Discharge Plan Discharge Chief Complaint: Shortness of Breath/Dyspnea Clinical Impression: Acute exacerbation of chronic obstructive pulmonary disease (COPD) Patient Disposition: Home, Self-Care Prescriptions / Home Meds: No Action losartan [Cozaar] 25 mg tablet 25 mg PO DAILY omeprazole 20 mg capsule,delayed release(DR/EC) 20 mg PO DAILY Instructions: COPD (Chronic Obstructive Pulmonary Disease) (ED) Stand Alone Forms: Portal Instructions Referrals: Physician,Non-Staff, MD [Primary Care Provider] - 1 week
--- NOTE | 2023-10-22 22:24 | XR_ITS ---
[place] [id number] Patient Name: CONSTANZA BARRETO MRN: [id number] date: 1955 Sex: M Assigned Patient Location: ER Current Patient Location: ER Accession/Order Number: [id number] Exam Date: 10/22/2023 22:35 Report Date: 10/22/2023 22:52 At the request of: KENTRELL CHAPIN Procedure: XR chest 1V EXAM: XR chest 1V HISTORY: cough COMPARISON: 10/05/2023 TECHNIQUE: Single view of the chest FINDINGS: Heart size normal. No focal consolidation, pleural effusion, pulmonary congestion or pneumothorax. Atherosclerotic calcification of the aorta. External leads. XR/XR chest 1V IMPRESSION: No acute findings. Electronically authenticated by: ELENI HORTON Date: 10/22/2023 22:52
--- NOTE | 2023-10-22 22:24 | ECG_ITS ---
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
[2023-10-22 22:40] LABS: Basophils Absolute Auto 0.1 10^3/uL (0.0-0.1); Basophils Percent Auto 0.4 % (0.2-2.0); Eosinophils Absolute Auto 0.4 10^3/uL (0.0-0.7); Eosinophils Percent Auto 2.5 % (0.9-7.0); Hematocrit 42.6 % (42.0-54.0); Immature Granulocytes Abs Auto 0.05 10^3/uL (0.00-0.03); Immature Granulocytes Pct Auto 0.4 % (0.0-0.5); Lymphocytes Percent Auto 14.1 % (20.5-60.0); Mean Corpuscular HGB Conc 32.9 g/dL (29.9-35.2); Mean Corpuscular Hemoglobin 30.8 pg (25.9-34.0); Mean Corpuscular Volume 93.8 fL (80.0-94.0); Mean Platelet Volume 8.9 fL (9.5-13.5); Monocytes Absolute Auto 0.8 10^3/uL (0.3-0.8); Monocytes Percent Auto 5.8 % (1.7-12.0); Neutrophils Absolute Auto 10.9 10^3/uL (1.4-6.5); Neutrophils Percent Auto 76.8 % (43.0-75.0); Platelet Count 213 10^3/uL (150-450); Red Blood Count 4.54 10^6/uL (4.70-6.10); Red Cell Distribution Width 13.2 % (11.0-15.0); White Blood Count 14.2 10^3/uL (4.0-11.0)
[2023-10-22] MEDS: METHYLPREDNISOLONE SOD SUCC PF 125 MG/2 ML VIAL IVP (22:43)
[2023-10-22 22:48] VITALS: PULSE 85; RESP 18; O2SAT 91; O2SAT 92
[2023-10-22] MEDS: IPRATROPIUM/ALBUTEROL SULFATE 3 ML AMPUL.NEB IH (22:48)
--- NOTE | 2023-10-22 22:50 | PC.NURSE ---
Faint late exp.wheezes
[2023-10-22 22:59] LABS: Anion Gap 11.8; BUN Creatinine Ratio 9.5; Calcium 8.7 mg/dL (8.5-10.1); Carbon Dioxide 25.8 mmol/L (21.0-32.0); Chloride 103 mmol/L (98-107); Estimated GFR (African America >60 (>=60); Estimated GFR (Non-African Ame >60 (>=60); Glucose 197 mg/dL (74-106); Potassium 3.6 mmol/L (3.5-5.1); Sodium 137 mmol/L (136-145); Troponin I High Sensitivity 14.2 pg/mL (4.0-76.1)
[2023-10-22] MEDS: MAGNESIUM OXIDE 400 MG TABLET PO (23:20)
[2023-10-22 23:38] VITALS: BP 170/80; PULSE 69; RESP 20; O2SAT 95
--- OUTSIDE RECORDS SUMMARY | 2023-11-11 01:08 | XMS_ITS | CCD ---
Author Name Unknown Address [address] [facility] [address] [place] [address] Organization [facility] Care Team Providers Care Substation Manager Name Role Phone REQUEST, DR NONE LISTED Primary Care Unavaila akhil ALLEN ., LEIA Admitting Unavailable TIFFANY ., LEIA Attending Unavailable CHINO ., NINA Consulting Unavailable HOME BEAULIEU Consulting Unavailable PAY ., DR MIDDLETON Attending Unavailable PAY ., DR MIDDLETON Consulting Unavailable PAY ., DR MIDDLETON Admitting Unavailable REQUEST, NONE LISTED Primary Care Unavaila ble MARKER ., DR REDDING Attending Unavailable MARKER ., DR REDDING Consulting Unavailable MARKER ., DR REDDING Admitting Unavailable REQUEST, NONE LISTED Primary Care Unavaila ble GONSALO GRANGER Consulting Unavailable TAVARES, KENTRELL Admitting Unavailable TAVARES, KENTRELL Attending Unavailable TAVARES, KENTRELL Consulting Unavailable REQUEST, NONE LISTED Primary Care Unavaila ble NUNU MUNOZ Consulting Unavailable TIFFANY ., LEIA Admitting Unavailable HIRAMNY ., PALMIRA FOX Consulting Unavailheriberto ALLEN ., LEIA Attending Unavailable REQUEST, NONE LISTED Primary Care Unavaila ble DIANE RICHARDS Consulting Unavailable PAY ., DR MIDDLETON Attending Unavailable PAY ., DR MIDDLETON Consulting Unavailable PAY ., DR MIDDLETON Admitting Unavailable REQUEST, NONE LISTED Primary Care Unavaila ble LINDA CHANG Consulting Unavailable CABALLERO ., DR SEBAS Parker Consulting Unavailable CABALLERO ., DR SEBAS Parker Admitting Unavailable CABALLERO ., DR SEBAS Parker Attending Unavailable REQUEST, NONE LISTED Primary Care Unavaila ble KENTRELL CHAPIN Consulting Unavailable REGINALDO LUCIO Consulting Unavailable TAVARES, KENTRELL Admitting Unavailable TAVARES, KENTRELL Attending Unavailable TAVARES, KENTRELL Consulting Unavailable REQUEST, NONE LISTED Primary Care Unavaila ble GIO HAYWOOD Consulting Unavailable DIAB ., MITCH Consulting Unavailable MARKER ., DR REDDING Attending Unavailable MARKER ., DR REDDING Consulting Unavailable MARKER ., DR REDDING Admitting Unavailable REQUEST, NONE LISTED Primary Care Unavaila ble BELLO, JUAN Consulting Unavailable TIFFANY ., LEIA Attending Unavailable TIFFANY ., LEIA Admitting Unavailable WEST, DR REGINALDO Johnson Consulting Unavailable REQUEST, DR NONE LISTED Primary Care Unavaila ble TIFFANY ., ELIA Consulting Unavailable MARKER ., DR REDDING Attending Unavailable MARKER ., DR REDDING Consulting Unavailable MARKER ., DR REDDING Admitting Unavailable REQUEST, DR NONE LISTED Primary Care Unavaila ble ELKIN, GONSALO Consulting Unavailable HILDA, DR NASH Ribeiro Admitting Unavailable HILDA, DR NASH Ribeiro Attending Unavailable HILDA, DR NASH Ribeiro Consulting Unavailable REQUEST, DR NONE LISTED Primary Care Unavaila ble BELLO, JUAN Consulting Unavailable REQUEST, DR NONE LISTED Primary Care Unavaila ble KATKO, DEMARCUS D Admitting Unavailable KATKO, DEMARCUS Cuellar Attending Unavailable Zieber, Rui Consulting Unavailable KATKO, DEMARCUS D Consulting Unavailable REQUEST, DR NONE LISTED Primary Care Unavaila ble TAVARES, KENTRELL Admitting Unavailable TAVARES, KENTRELL Attending Unavailable GRECHNY ., PALMIRA FOX Consulting Unavailabl e TAVARES, KENTRELL Consulting Unavailable REQUEST, NONE LISTED Primary Care Unavaila ble DIAB ., MITCH Consulting Unavailable DIAB ., MITCH Admitting Unavailable DIAB ., MITCH Attending Unavailable REQUEST, DR NONE LISTED Primary Care Unavaila ble MISC, DR FULTON Admitting Unavailable MISC, DR FULTON Consulting Unavailable PAY ., DR MIDDLETON Attending Unavailable PAY ., DR MIDDLETON Consulting Unavailable RASTEGAR, HOME Consulting Unavailable TAVARES, KENTRELL Consulting Unavailable TAVARES, KENTRELL Admitting Unavailable TAVARES, KENTRELL Attending Unavailable REQUEST, DR NONE LISTED Primary Care Unavaila ble TAVARES, KENTRELL Consulting Unavailable TAVARES, KENTRELL Admitting Unavailable TAVARES, KENTRELL Attending Unavailable REQUEST, DR NONE LISTED Primary Care Unavaila ble SURESH, AMELIA Consulting Unavailable SHAMMO, OTONIEL Consulting Unavailable SHAMMO, OTONIEL Admitting Unavailable SHAMMO, OTONIEL Attending Unavailable REQUEST, DR NONE LISTED Primary Care Unavaila ble REQUEST, DR NONE LISTED Primary Care Unavaila ble AIMEE ., MARIYA Admitting Unavailable AIMEE ., MARIYA Attending Unavailable GRECHNY ., PALMIRA FOX Consulting Unavailabl e REGINALDO LUCOI Consulting Unavailable SISTER, SIMONE Consulting Unavailable AIMEE ., MARIYA Consulting Unavailable Allergies Allergy Classification Reported Allergen(s) Allergy Type Date of Onset Reaction(s) Facility (1 source) Penicillin Drug Allergy [facility] Repository Problems Active Problems Problem Classification Problem Date Documented Date Episodic/Chronic Alcohol-related disorders (2 sources) Alcohol abuse, uncomplicated; Translations: [Alcoholic hepatitis without ascites] Onset: 03-24-2023 Chronic Asthma (1 source) Unspecified asthma, uncomplicated; Translations: [UNSPECIFIED ASTHMA UNCOMPLICATED] Onset: 10-01-2022 Chronic Chronic obstructive pulmonary disease and bronchiectasis (6 sources) Centrilobular emphysema; Translations: [Emphysema, unspecified] Onset: 11-27-2022 Chronic Diabetes mellitus without complication (1 source) Other abnormal glucose; Translations: [OTHER ABNORMAL GLUCOSE] Onset: 04-02-2023 Episodic Esophageal disorders (1 source) Gastro-esophageal reflux disease without esophagitis; Translations: [GERD WITHOUT ESOPHAGITIS] Onset: 04-07-2023 Chronic Essential hypertension (1 source) Essential (primary) hypertension; Translations: [ESSENTIAL PRIMARY HYPERTENSION] Onset: 04-07-2023 Chronic Hyperplasia of prostate (1 source) Benign prostatic hyperplasia without lower urinary tract symptoms; Translations: [BENIGN PROSTATIC HYPRPLASIA WO LUTS] Onset: 04-01-2023 Chronic Nonspecific chest pain (4 sources) Other chest pain; Translations: [OTHER CHEST PAIN] Onset: 03-27-2023 Episodic Other aftercare (1 source) Other residential (current) drug therapy; Translations: [OTH SKILLED NURSING CURRENT DRUG THERAPY] Onset: 04-07-2023 Episodic Other connective tissue disease (3 sources) Other specified soft tissue disorders; Translations: [OTHER SPEC SOFT TISSUE DISORDERS] Onset: 04-04-2023 Episodic Other injuries and conditions due to external causes (1 source) Underdosing of loop [high-ceiling] diuretics, initial encounter; Translations: [UNDERDOS LOOP HI-CEIL DIURETIC INIT] Onset: 03-24-2023 Episodic Other lower respiratory disease (1 source) Personal history of pneumonia (recurrent); Translations: [PERSONAL HX OF PNEUMONIA RECURRENT] Onset: 04-07-2023 Episodic Other lower respiratory disease (4 sources) Shortness of breath; Translations: [SHORTNESS OF BREATH] Onset: 01-02-2023 Episodic Residual codes; unclassified (1 source) Sleep apnea, unspecified; Translations: [SLEEP APNEA UNSPECIFIED] Onset: 04-07-2023 Chronic Residual codes; unclassified (5 sources) Localized edema; Translations: [LOCALIZED EDEMA] Onset: 03-30-2023 Episodic Residual codes; unclassified (1 source) Edema, unspecified; Translations: [EDEMA UNSPECIFIED] Onset: 03-24-2023 Episodic Residual codes; unclassified (1 source) Patient's intentional underdosing of medication regimen for other reason; Translations: [PT INTENT UNDERDOS MED OTH REASON] Onset: 03-24-2023 Episodic Skin and subcutaneous tissue infections (2 sources) Cellulitis of left lower limb; Translations: [Cellulitis of right lower limb] Onset: 03-19-2023 Episodic Substance-related disorders (1 source) Nicotine dependence, cigarettes, uncomplicated; Translations: [NICOTINE DEPEND CIGARETTES UNCOMP] Onset: 04-07-2023 Chronic Unclassified (1 source) CONTACT W/AND (SUSP) EXPOS COVID-19; Translations: [CONTACT W/AND (SUSP) EXPOS COVID-19] Onset: 01-15-2023 Past or Other Problems Problem Classification Problem Date Documented Da te Episodic/Chronic Acute bronchitis (1 source) Acute bronchitis, unspecified; Translations: [ACUTE BRONCHITIS UNSPECIFIED] Onset: 09-17-2022 Episodic Immunizations and screening for infectious disease (1 source) Encounter for immunization; Translations: [ENCOUNTER FOR IMMUNIZATION] Onset: 09-17-2022 Episodic Other lower respiratory disease (1 source) Wheezing; Translations: [WHEEZING] Onset: 10-06-2022 Episodic Substance-related disorders (1 source) Cannabis use, unspecified, uncomplicated; Translations: [CANNABIS USE UNS UNCOMPLICATED] Onset: 12-29-2022 Episodic Results Test Name Value Interpretation Reference Range Facil ity CBC AUTO DIFFon 04-04-2023 BASO # 0.0 103/ul Normal 0.0-0.1 [facility] Comment on above: Performed By: #### C BC ####[facility] [address] [place], [place] [address]Hm. Garima Pulliam Basophils/100 WBC (Bld) 0.3 % Normal 0.2-2.0 [facility] Comment on above: Performed By: #### C BC ####[facility] [address] [place], [place] [address]Fm. Garima Pulliam EO # 0.3 103/ul Normal 0.0-0.7 [facility] Comment on above: Performed By: #### C BC ####[facility] [address] [place] [address]Dr. Garima Pulliam Eosinophils/100 WBC (Bld) 2.8 % Normal 0.9-7.0 [facility] Comment on above: Performed By: #### C BC ####[facility] [address] [place], [place] [address]Dr. Garima Pulliam Erythrocyte distribution wid th (RBC) [Ratio] 13.4 % Normal 11.0-15.0 [facility] Comment on above: Performed By: #### C BC ####[facility] [address] [place], [place] [address]Dr. Garima Pulliam Hematocrit (Bld) [Volume fraction] 45.7 % Normal 4 2.0-54.0 [facility] Comment on above: Performed By: #### C BC ####[facility] [address] [place], [place] [address]Dr. Garima Pulliam Hemoglobin (Bld) [Mass/Vol] 15.2 g/dL Normal 14.0-18. 0 [facility] Comment on above: Performed By: #### C BC ####[facility] [address] [place], [place] [address]Dr. Garima Pulliam IG # 0.02 10e3/ul Normal 0.00-0.03 [facility] Comment on above: Performed By: #### C BC ####[facility] [address] [place], [place] [address]Dr. Garima Pulliam IG % 0.2 % Normal 0.0-0.5 [facility]ital Comment on above: Performed By: #### C BC ####[facility] [address] [place], [place] [address]Dr. Garima Pulliam LYMPH # 2.1 103/ul Normal 1.2-3.8 [facility] Comment on above: Performed By: #### C BC ####[facility] [address] [place], [place] [address]Dr. Garima Pulliam Lymphocytes/100 WBC (Bld) 23.7 % Normal 20.5-60.0 [facility] Comment on above: Performed By: #### C BC ####[facility] [address] [place] [address]Dr. Garima Pulliam MANUAL DIFF REQ NO Normal [facility] Comment on above: Performed By: #### C BC ####[facility] [address] [place] [id number]. Garima Pulliam MCH (RBC) [Entitic mass] 30.4 pg Normal 25.9-34.0 [facility] Comment on above: Performed By: #### C BC ####[facility] [address] [place] [address]Dr. Garima Pulliam MCHC (RBC) [Mass/Vol] 33.3 g/dL Normal 29.9-35.2 [facility] Comment on above: Performed By: #### C BC ####[facility] [address] [place], [place] [address]Dr. Garima Pulliam MCV (RBC) [Entitic vol] 91.4 fL Normal 80.0-94.0 [facility] Comment on above: Performed By: #### C BC ####[facility] [address] [place], [place] [address]Dr. Garima Pulliam MONO # 0.7 103/ul Normal 0.3-0.8 [facility] Comment on above: Performed By: #### C BC ####[facility] [address] [place], [place] [address]Dr. Garima Pulliam Monocytes/100 WBC (Bld) 8.3 % Normal 1.7-12.0 [facility] Comment on above: Performed By: #### C BC ####[facility] [address] [place], [place] [address]Dr. Garima Pulliam NEUT # 5.8 103/ul Normal 1.4-6.5 [facility] Comment on above: Performed By: #### C BC ####[facility] [address] [place], [place] [address]DrAdalberto Pulliam Neutrophils/100 WBC (Bld) 64.7 % Normal 43.0-75.0 [facility] Comment on above: Performed By: #### C BC ####[facility] [address] [place] [address]Dr. Chapisrenu Heraclio Platelet mean volume (Bld) [Entitic vol] 8.6 fL Critically low 9.5-13.5 The [facility] pital Comment on above: Performed By: #### C BC ####[facility] [address] [place], [place] [address]Dr. Garima Pulliam PLT 230 103/ul Normal 150-450 [facility] Comment on above: Performed By: #### C BC ####[facility] [address] [place], [place] [address]Dr. Garima Pulliam RBC 5.00 106/ul Normal 4.70-6.10 [facility] Comment on above: Performed By: #### C BC ####[facility] [address] [place], [place] [address]DrAdalberto Pulliam WBC 9.0 103/ul Normal 4.0-11.0 [facility] Comment on above: Performed By: #### C BC ####[facility] [address] [place], [place] [address]DrAdalberto Pulliam MAGNESIUMon 04-04-2023 Magnesium [Mass/Vol] 1.8 mg/dL Normal 1.8-2.4 [facility] Comment on above: Performed By: #### M G ####[facility] [address] [place], [place] [address]DrAdalberto Pulliam PROF 14(COMP METB)on 023 Albumin [Mass/Vol] 3.8 g/dL Normal 3.4-5.0 [facility] Comment on above: Performed By: #### C MP ####[facility] [address] [place], [place] [address]DrAdalberto Pulliam Albumin/Globulin [Mass ratio] 1.2 {ratio} Normal [facility] Comment on above: Performed By: #### C MP ####[facility] [address] [place], [place] [address]Dr. Garima Pulliam ALP [Catalytic activity/Vol] 84 U/L Normal 46-116 [facility] Comment on above: Performed By: #### C MP ####[facility] [address] [place] [address]Dr. Garima Pulliam ALT [Catalytic activity/Vol] 31 U/L Normal 16-63 [facility] Comment on above: Performed By: #### C MP ####[facility] [address] [place], [place] [address]Dr. Garima Heraclio Anion gap [Moles/Vol] 12.2 mmol/L Normal [facility] Comment on above: Performed By: #### C MP ####[facility] [address] [place], [place] [address]Dr. Garima Heraclio AST [Catalytic activity/Vol] 23 U/L Normal 15-37 [facility] Comment on above: Performed By: #### C MP ####[facility] X[address]vvxjfy[address] [place], [place] [address]Dr. Garima Heraclio Bilirubin [Mass/Vol] 0.5 mg/dL Normal 0.2-1.0 [facility] Comment on above: Performed By: #### C MP ####[facility] [address] [place], [place] [address]Dr. Garima Heraclio Calcium [Mass/Vol] 9.2 mg/dL Normal 8.5-10.1 [facility] Comment on above: Performed By: #### C MP ####[facility] [address] [place], [place] [address]Dr. Garima Hearclio Chloride [Moles/Vol] 103 mmol/L Normal 98-107 [facility] Comment on above: Performed By: #### C MP ####[facility] [address] [place], [place] [address]Dr. Garima Pulliam CO2 [Moles/Vol] 28.5 mmol/L Normal 21.0-32.0 The [facility] Comment on above: Performed By: #### C MP ####[facility] [address] [place], [place] [address]Dr. Garima Pulliam Creatinine [Mass/Vol] 0.74 mg/dL Normal 0.70-1.30 [facility] Comment on above: Performed By: #### C MP ####[facility] [address] [place] [phone]. Garima Pulliam EGFR-AF IRISH >60 Normal >=60 [facility] [place] Comment on above: Performed By: #### C MP ####[facility] [address] [place] [phone]. Garima Heraclio EGFR-NON AF IRISH >60 Normal >=60 [facility] Comment on above: Performed By: #### C MP ####[facility] [address] [place] [phone]. Garima Heraclio Globulin (S) [Mass/Vol] 3.1 g/dL Normal T [facility] Comment on above: Performed By: #### C MP ####[facility] [address] [place] [phone]. Garima Heraclio Glucose [Mass/Vol] 93 mg/dL Normal 74-106 [facility] Comment on above: Performed By: #### C MP ####[facility] [address] [place] [phone]. Garima Heraclio Potassium [Moles/Vol] 3.7 mmol/L Normal 3.5-5.1 [facility] Comment on above: Performed By: #### C MP ####[facility] [address] [place] [phone]. Garima Heraclio Protein [Mass/Vol] 6.9 g/dL Normal 6.4-8.2 [facility] Comment on above: Performed By: #### C MP ####[facility] [address] [place] [phone]. Garima Heraclio Sodium [Moles/Vol] 140 mmol/L Normal 136-145 [facility] Comment on above: Performed By: #### C MP ####[facility] [address] [place] [phone]. Garima Heraclio Urea nitrogen [Mass/Vol] 8.0 mg/dL Normal 7.0-18.0 [facility] Comment on above: Performed By: #### C MP ####[facility] [address] [place] [address]Dr. Garima Pulliam Urea nitrogen/Creatinine [Mass ratio] 10.8 mg/mg Normal [facility] Comment on above: Performed By: #### C MP ####[facility] [address] [place] [address]Dr. Garima Pulliam AMMONIAon 03-30-2023 Ammonia (P) [Moles/Vol] 11 umol/L Normal 11-32 T [facility] Comment on above: Performed By: #### A MM ####[facility] [address] [place], [place] [address]Dr. Garima Pulliam CARDIAC NASH ADMITon 023 CK [Catalytic activity/Vol] 232 U/L Normal 39-308 [facility] Comment on above: Performed By: #### C DAVID, NANCY ####[facility] [address] [place], [place] [address]Dr. Garima Pulliam CK.MB [Mass/Vol] 4.83 ng/mL Critically high <=3.60 [facility] Comment on above: Performed By: #### C DAVID, NANCY ####[facility] [address] [place], [place] [address]Dr. Garima Pulliam HSTROP 10.5 pg/mL Normal 4.0-76.1 [facility] ospital Comment on above: Result Comment: CUT- OFF POINTS HAVE BEEN ESTABLISHED BASED ON THE FOURTH UNIVERSAL DEFINITIONS OF MYOCARDIALINFARCTION. THE UPPER REFERENCE LIMIT (URL) OF TROPONIN, DEFINED THE 99TH PERCENTILE OFcTnI DISTRIBUTION IN A REFERENCE POPULATION, HAS BEEN CONFIRMED THE DECISION THRESHOLDFOR [place] DIAGNOSIS. Performed By: #### C DAVID, ERVINDM ####[facility] [address] [place], [place] [address]Dr. Garima Pulliam DORIS 79 ng/mL Normal 16-96 [facility] o[facility]ital Comment on above: Performed By: #### C DAVID, NANCY ####[facility] [address] [place], [place] [address]Dr. Garima Pulliam CBC AUTO DIFFon 03-30-2023 BASO # 0.0 103/ul Normal 0.0-0.1 The [facility] Comment on above: Performed By: #### C BC ####[facility] [address] [place] [address]Dr. Garima Pulliam Basophils/100 WBC (Bld) 0.1 % Critically low 0.2-2.0 [facility] Comment on above: Performed By: #### C BC ####[facility] [address] [place], [place] [address]Dr. Garima Pulliam EO # 0.3 103/ul Normal 0.0-0.7 [facility] Comment on above: Performed By: #### C BC ####[facility] [address] [place], [place] [address]Dr. Garima Pulliam Eosinophils/100 WBC (Bld) 3.3 % Normal 0.9-7.0 [facility] Comment on above: Performed By: #### C BC ####[facility] [address] [place], [place] [address]Dr. Garima Pulliam Erythrocyte distribution wid th (RBC) [Ratio] 13.5 % Normal 11.0-15.0 The [facility] Comment on above: Performed By: #### C BC ####[facility] [address]evfto[address] [place], [place] [address]Dr. Garima Pulliam Hematocrit (Bld) [Volume fraction] 42.9 % Normal 4 2.0-54.0 [facility] Comment on above: Performed By: #### C BC ####[facility] [address]afwlk[address] [place], [place] [address]Dr. Garima Pulliam Hemoglobin (Bld) [Mass/Vol] 13.9 g/dL Critically low 14.0 -18.0 [facility] Comment on above: Performed By: #### C BC ####[facility] [address] [place], [place] [address]Dr. Garima Pulliam IG # 0.01 10e3/ul Normal 0.00-0.03 [facility] Comment on above: Performed By: #### C BC ####[facility] [address] [place] [phone]. Garima Pulliam IG % 0.1 % Normal 0.0-0.5 [facility] Comment on above: Performed By: #### C BC ####[facility] [address] [place] [phone]. Garima Pulliam LYMPH # 1.7 103/ul Normal 1.2-3.8 The [facility] Comment on above: Performed By: #### C BC ####[facility] [address] [place], [place] [address]Dr. Garima Pulliam Lymphocytes/100 WBC (Bld) 22.8 % Normal 20.5-60.0 [facility] Comment on above: Performed By: #### C BC ####[facility] [address] [place], [place] [address]Dr. Garima Pulliam MANUAL DIFF REQ NO Normal The [facility] Comment on above: Performed By: #### C BC ####[facility] [address] [place], [place] [address]Dr. Chapisrenu Pulliam MCH (RBC) [Entitic mass] 30.5 pg Normal 25.9-34.0 [facility] Comment on above: Performed By: #### C BC ####[facility] [address]wpkt[address] [place], [place] [address]Dr. Garima Pulliam MCHC (RBC) [Mass/Vol] 32.4 g/dL Normal 29.9-35.2 [facility] Comment on above: Performed By: #### C BC ####[facility] [address] [place], [place] [address]Dr. Garima Pulliam MCV (RBC) [Entitic vol] 94.1 fL Critically high 80.0-94 .0 [facility] Comment on above: Performed By: #### C BC ####[facility] V[address] [place], [place] [address]Dr. Garima Pulliam MONO # 0.7 103/ul Normal 0.3-0.8 [facility] Comment on above: Performed By: #### C BC ####[facility] [address] [place] [phone]. Garima Pulliam Monocytes/100 WBC (Bld) 8.6 % Normal 1.7-12.0 [facility] Comment on above: Performed By: #### C BC ####[facility] [address] [place] [phone]. Garima Pulliam NEUT # 4.9 103/ul Normal 1.4-6.5 [facility]ital Comment on above: Performed By: #### C BC ####[facility] [address]axrrc[address] [place] [phone]. Garima Pulliam Neutrophils/100 WBC (Bld) 65.1 % Normal 43.0-75.0 [facility] Comment on above: Performed By: #### C BC ####[facility] [address] [place], [place] [address]Dr. Garima Pulliam Platelet mean volume (Bld) [Entitic vol] 8.5 fL Critically low 9.5-13.5 [facility] pital Comment on above: Performed By: #### C BC ####[facility] [address] [place], [place] [address]Dr. Garima Pulliam PLT 219 103/ul Normal 150-450 [facility]ital Comment on above: Performed By: #### C BC ####[facility] [address] [place], [place] [address]Dr. Garima Pulliam RBC 4.56 106/ul Critically low 4.70-6.10 The [facility] Comment on above: Performed By: #### C BC ####[facility] [address]cv[address] [place] [phone]. Garima Pulliam WBC 7.6 103/ul Normal 4.0-11.0 [facility] Comment on above: Performed By: #### C BC ####[facility] [address] [place], [place] [id number]. Garima Pulliam LACTATE/LACTIC ACIDon 2022 Lactate [Moles/Vol] 1.2 mmol/L Normal 0.4-2.0 [facility] Comment on above: Performed By: #### L ACT ####[facility] [address] [place] [address]Dr. Garima Pulliam MAGNESIUMon 03-30-2023 Magnesium [Mass/Vol] 1.8 mg/dL Normal 1.8-2.4 [facility] Comment on above: Performed By: #### M G ####[facility] [address] [place], [place] [address]Dr. Garima Pulliam PROF 14(COMP METB)on 023 Albumin [Mass/Vol] 3.5 g/dL Normal 3.4-5.0 [facility] Comment on above: Performed By: #### C NANCY HERNANDEZ ####[facility] [address]ob[address] [place], [place] [address]Dr. Garima Pulliam Albumin/Globulin [Mass ratio] 1.2 {ratio} Normal [facility] Comment on above: Performed By: #### C NANCY HERNANDEZ ####[facility] P[address] [place], [place] [address]Dr. Garima Pulliam ALP [Catalytic activity/Vol] 85 U/L Normal 46-116 [facility] Comment on above: Performed By: #### C NANCY HERNANDEZ ####[facility] [address] [place], [place] [address]Dr. Garima Pulliam ALT [Catalytic activity/Vol] 29 U/L Normal 16-63 [facility] Comment on above: Performed By: #### C NANCY HERNANDEZ ####[facility] [address]qxq[address] [place] [address]Dr. Garima Pulliam Anion gap [Moles/Vol] 8.0 mmol/L Normal [facility] Comment on above: Performed By: #### C DAVID, NANCY ####[facility] Moreyyyvik[address] [place] [address]Dr. Garima Pulliam AST [Catalytic activity/Vol] 18 U/L Normal 15-37 [facility] Comment on above: Performed By: #### C DAVID, NANCY ####[facility] Vcodeoexxw[address] [place] [address]Dr. Garima Pulliam Bilirubin [Mass/Vol] 0.4 mg/dL Normal 0.2-1.0 [facility] Comment on above: Performed By: #### C DAIVD, CMADM ####[facility] Rtimgkdfzb[address] [place] [address]Dr. Garima Pulliam Calcium [Mass/Vol] 8.8 mg/dL Normal 8.5-10.1 [facility] Comment on above: Performed By: #### C DAVID, CMADM ####[facility] Numiysejlh[address] [place] [address]Dr. Garima Pulliam Chloride [Moles/Vol] 108 mmol/L Critically high 98-107 [facility] Comment on above: Performed By: #### C DAVID, CMADM ####[facility] Ukrayxxxnf34[address] [place] [address]Dr. Garima Pulliam CO2 [Moles/Vol] 29.6 mmol/L Normal 21.0-32.0 [facility] Comment on above: Performed By: #### C DAVID, CMADM ####[facility] Hqfsimpycz19[address] [place] [address]Dr. Garima Pulliam Creatinine [Mass/Vol] 0.77 mg/dL Normal 0.70-1.30 [facility] Comment on above: Performed By: #### C DAVID, CMADM ####[facility] Xusxrzmwnk[address] [place] [address]Dr. Garima Pulliam EGFR-AF IRISH >60 Normal >=60 [facility] Comment on above: Performed By: #### C DAVID, CMADM ####[facility] Bcnvczeokq[address] [place] [id number]. Garima Pulliam EGFR-NON AF IRISH >60 Normal >=60 [facility] Comment on above: Performed By: #### C DAVID, CMADM ####[facility] Ywkeeq[address]my[address] [place], [place] [address]Dr. Garima Pulliam Globulin (S) [Mass/Vol] 2.8 g/dL Normal T [facility] Comment on above: Performed By: #### C DAVID, CMADM ####[facility] Fdncgbnvnd[address] [place] [address]Dr. Garima Pulliam Glucose [Mass/Vol] 207 mg/dL Critically high 74-106 [facility] Comment on above: Performed By: #### C MP, CMADM ####[facility] Omnhvjuhnc[address] [place] [address]Dr. Garima Pulliam Potassium [Moles/Vol] 4.6 mmol/L Normal 3.5-5.1 [facility] Comment on above: Performed By: #### C MP, CMADM ####[facility] Szessmnzrp2599 [place] [address]Dr. Garima Pulliam Protein [Mass/Vol] 6.3 g/dL Critically low 6.4-8.2 [facility] Comment on above: Performed By: #### C DAVID, CMADM ####[facility] Lcmzeyuxnx[address] [place], [place] [address]Dr. Garima Pulliam Sodium [Moles/Vol] 141 mmol/L Normal 136-145 [facility] Comment on above: Performed By: #### C MP, CMADM ####[facility] Vxscsssash[address] [place] [address]Dr. Garima Pulliam Urea nitrogen [Mass/Vol] 9.0 mg/dL Normal 7.0-18.0 [facility] Comment on above: Performed By: #### C MP, CMADM ####[facility] Zrmeinqiiy38[address] [place] [address]Dr. Garima Pulliam Urea nitrogen/Creatinine [Mass ratio] 11.7 mg/mg Normal [facility] Comment on above: Performed By: #### C MP, CMADM ####[facility] Xwafvitsor[address] [place] [address]Dr. Garima Pulliam XR CHEST 1 Von 03-30-2023 XR CHEST 1 V Normal [facility] BNPon 03-27-2023 Natriuretic peptide B (Bld) [Mass/Vol] 251.0 pg/mL Normal <=900.0 [facility] Comment on above: Performed By: #### C MP, BNP, LIPID ####[facility] Oadpihecec[address] [place] [address]Dr. Garima Pulliam GLYCOHEMOGLOBIN A1Con 2022 ADA RECOMMENDATION SEE BELOW Normal [facility] Comment on above: Result Comment: ADA RECOMMENDED LIMIT 4.0 - 6.0 ADA THERAPEUTIC TARGET < 7.0 ACTION SUGGESTED > 7.0 Performed By: #### A 1C ####[facility] Dqupyhpojh[address] [place] [address]Dr. Garima Pulliam Glucose [Mass/Vol] 180 mg/dL Normal [facility] Comment on above: Performed By: #### A 1C ####[facility] [address] [place], [place] [address]Dr. Garima Pulliam HbA1c (Bld) [Mass fraction] 7.9 % Critically high 4.5 -6.2 [facility] Comment on above: Performed By: #### A 1C ####[facility] Q[address] [place], [place] [address]Dr. Garima Pulliam HEMOGRAM AND PLATELon 2022 Hematocrit (Bld) [Volume fraction] 45.7 % Normal 4 2.0-54.0 [facility] Comment on above: Performed By: #### H H ####[facility] Y[address] [place], [place] [address]Dr. Garima Pulliam Hemoglobin (Bld) [Mass/Vol] 15.1 g/dL Normal 14.0-18. 0 [facility] Comment on above: Performed By: #### H H ####[facility] K[address]raptpmp[address] [place], [place] [address]Dr. Garima Pulliam MCH (RBC) [Entitic mass] 30.0 pg Normal 25.9-34.0 [facility] Comment on above: Performed By: #### H H ####[facility] G[address]rlmecp[address] [place], [place] [address]Dr. Garmia Pulliam MCHC (RBC) [Mass/Vol] 33.0 g/dL Normal 29.9-35.2 [facility] Comment on above: Performed By: #### H H ####[facility] Kjtczljacg1013 [place] [phone]. Garima Pulliam MCV (RBC) [Entitic vol] 90.7 fL Normal 80.0-94.0 [facility] Comment on above: Performed By: #### H H ####[facility] Jfcifzrzfj6377 [place] [phone]. Garima Pulliam PLT 222 103/ul Normal 150-450 [facility] Comment on above: Performed By: #### H H ####[facility] Jfynxjekbn5921 [place] [phone]. Garima Pulliam RBC 5.04 106/ul Normal 4.70-6.10 [facility] Comment on above: Performed By: #### H H ####[facility] [address]fdtxmd[address] [place], [place] [address]Dr. Garima Pulliam WBC 8.7 103/ul Normal 4.0-11.0 [facility] Comment on above: Performed By: #### H H ####[facility] Hjsaopmpvd[address] [place], [place] [address]Dr. Garima Pulliam LIPID PROFILEon 03-27-2023 CHOL-HDL RATIO NORM SEE BELOW Normal [facility] Comment on above: Result Comment: 3.3 - 4.4 LOW RISK 4.4 - 7.1 AVERAGE RISK 7.1 - 11.0 MODERATE RISK >11.0 HIGH RISK Performed By: #### C MP, BNP, LIPID ####[facility] Gcfkgxqwcy74[address] [place] [phone]. Garima Pulliam Cholesterol [Mass/Vol] 113 mg/dL Normal <=200 Th [facility] Comment on above: Performed By: #### C MP, BNP, LIPID ####[facility] Dopafnwtdb4645 [place] [phone]. Garima Pulliam Cholesterol in HDL [Mass/Vol] 51 mg/dL Normal 40-60 [facility] Comment on above: Performed By: #### C MP, BNP, LIPID ####[facility] Owdchknyuo2066 [place] [phone]. Garima Pulliam Cholesterol in LDL [Mass/Vol] 49.8 mg/dL Normal [facility] Comment on above: Performed By: #### C MP, BNP, LIPID ####[facility] Hcahclxjla2442 [place] [phone]. Garima Pulliam Cholesterol.total/Cholestero l in HDL [Mass ratio] 2.2 {ratio} Normal [facility] Comment on above: Performed By: #### C MP, BNP, LIPID ####[facility] Mrtwziossx4661 [place] [phone]. Garima Pulliam HDL NORMAL > or = 60 mg/dl - LO W CARDIOVASCULAR RISK <40 mg/dl - HIGH CARDIOVASCULAR RISK Normal [facility] Comment on above: Performed By: #### C MP, BNP, LIPID ####[facility] Ioxoqbtbic5[address] [place] [address]Dr. Garima Pulliam LDL CALC NORMAL SEE BELOW Normal The [facility] Comment on above: Result Comment: <100 mg/dl OPTIMAL 100 - 129 mg/dl NEAR OR ABOVE OPTIMAL 130 - 159 mg/dl BORDERLINE HIGH 160 - 189 mg/dl HIGH >190 mg/dl VERY HIGH Performed By: #### C MP, BNP, LIPID ####[facility] Dekclagyao3575 [place] [phone]. Garima Pulliam Triglyceride [Mass/Vol] 61 mg/dL Normal <=150 T [facility] Comment on above: Performed By: #### C MP, BNP, LIPID ####[facility] Wrwselpzzy[address] [place] [phone]. Garima Pulliam VLDL CALC 12.2 mg/dL Normal [facility] Comment on above: Performed By: #### C MP, BNP, LIPID ####[facility] Xbkapemzta4188 [place] [phone]. Garima Pulliam PROF 14(COMP METB)on 023 Albumin [Mass/Vol] 3.5 g/dL Normal 3.4-5.0 [facility] Comment on above: Performed By: #### C MP, BNP, LIPID ####[facility] Eztbxzrzfe80[address] [place] [phone]. Garima Pulliam Albumin/Globulin [Mass ratio] 1.2 {ratio} Normal [facility] Comment on above: Performed By: #### C MP, BNP, LIPID ####[facility] Xtewbzorjs6344 [place] [address]Dr. Garima Pulliam ALP [Catalytic activity/Vol] 82 U/L Normal 46-116 [facility] Comment on above: Performed By: #### C MP, BNP, LIPID ####[facility] Unzzamnpcn04[address] [place] [address]Dr. Garima Pulliam ALT [Catalytic activity/Vol] 33 U/L Normal 16-63 [facility] Comment on above: Performed By: #### C MP, BNP, LIPID ####[facility] Hgkibssxbh3365 [place] [address]Dr. Garima Pulliam Anion gap [Moles/Vol] 9.9 mmol/L Normal [facility] Comment on above: Performed By: #### C MP, BNP, LIPID ####[facility] [address]tezve[address] [place], [place] [address]Dr. Garima Pulliam AST [Catalytic activity/Vol] 24 U/L Normal 15-37 [facility] Comment on above: Performed By: #### C MP, BNP, LIPID ####[facility] Rxpcpgktoz[address] [place], [place] [address]Dr. Garima Pulliam Bilirubin [Mass/Vol] 0.6 mg/dL Normal 0.2-1.0 [facility] Comment on above: Performed By: #### C MP, BNP, LIPID ####[facility] Pywmyt[address] [place], [place] [address]Dr. Garima Pulliam Calcium [Mass/Vol] 9.2 mg/dL Normal 8.5-10.1 [facility] Comment on above: Performed By: #### C MP, BNP, LIPID ####[facility] Nqmegfukjj2942 [place] [address]Dr. Garima Pulliam Chloride [Moles/Vol] 106 mmol/L Normal 98-107 [facility] Comment on above: Performed By: #### C MP, BNP, LIPID ####[facility] [address]tjsquj[address] [place], [place] [address]Dr. Garima Pulliam CO2 [Moles/Vol] 32.3 mmol/L Critically high 21.0-32.0 [facility] Comment on above: Performed By: #### C MP, BNP, LIPID ####[facility] Oaohcipsem1554 [place] [address]Dr. Garima Pulliam Creatinine [Mass/Vol] 0.70 mg/dL Normal 0.70-1.30 [facility] Comment on above: Performed By: #### C MP, BNP, LIPID ####[facility] Kenkoxgtec3420 [place] [address]Dr. Garima Pulliam EGFR-AF IRISH >60 Normal >=60 [facility] Comment on above: Performed By: #### C MP, BNP, LIPID ####[facility] Nzwtvzocup3965 [place] [address]Dr. Garima Pulliam EGFR-NON AF IRISH >60 Normal >=60 [facility] Comment on above: Performed By: #### C MP, BNP, LIPID ####[facility] Kyxzohevee2213 [place] [address]Dr. Garima Pulliam Globulin (S) [Mass/Vol] 2.9 g/dL Normal [facility] Comment on above: Performed By: #### C MP, BNP, LIPID ####[facility] Isexyyumcr1467 [place] [address]Dr. Garima Pulliam Glucose [Mass/Vol] 111 mg/dL Critically high 74-106 [facility] Comment on above: Performed By: #### C MP, BNP, LIPID ####[facility] Ibihorzpxy7191 [place] [address]Dr. Garima Pulliam Potassium [Moles/Vol] 4.2 mmol/L Normal 3.5-5.1 [facility] Comment on above: Performed By: #### C MP, BNP, LIPID ####[facility] Xocldxrxkt9643 [place] [address]Dr. Garima Pulliam Protein [Mass/Vol] 6.4 g/dL Normal 6.4-8.2 [facility] Comment on above: Performed By: #### C MP, BNP, LIPID ####[facility] Kctxnrgzwm1963 [place] [address]Dr. Garima Pulliam Sodium [Moles/Vol] 144 mmol/L Normal 136-145 [facility] Comment on above: Performed By: #### C MP, BNP, LIPID ####[facility] Xvaoxtcoab9791 [place] [address]Dr. Garima Heraclio Urea nitrogen [Mass/Vol] 7.0 mg/dL Normal 7.0-18.0 [facility] Comment on above: Performed By: #### C MP, BNP, LIPID ####[facility] J[address]soeezkzg[address] [place], [place] [address]Dr. Chapisrenu Heraclio Urea nitrogen/Creatinine [Mass ratio] 10.0 mg/mg Normal [facility] Comment on above: Performed By: #### C MP, BNP, LIPID ####[facility] L[address]kgecpla[address] [place], [place] [address]Dr. Garima Heraclio BNPon 03-22-2023 Natriuretic peptide B (Bld) [Mass/Vol] 103.0 pg/mL Normal <=900.0 [facility] pital Comment on above: Performed By: #### B CYCLE DIRECTOR, BMP ####[facility] [address]vkw[address]qs[address] [place], [place] [address]Dr. Garima Heraclio CBC AUTO DIFFon 03-22-2023 BASO # 0.0 103/ul Normal 0.0-0.1 [facility] Comment on above: Performed By: #### C BC ####[facility] O[address]rbhq[address] [place], [place] [address]Dr. Garima Heraclio Basophils/100 WBC (Bld) 0.3 % Normal 0.2-2.0 [facility] Comment on above: Performed By: #### C BC ####[facility] O[address]tcfqrhq[address] [place], [place] [address]Dr. Garima Pulliam EO # 0.2 103/ul Normal 0.0-0.7 [facility] Comment on above: Performed By: #### C BC ####[facility] Xqlyjwsxnx[address] [place], [place] [address]Dr. Garima Pulliam Eosinophils/100 WBC (Bld) 2.2 % Normal 0.9-7.0 [facility] Comment on above: Performed By: #### C BC ####[facility] Flsworiiuz7223 [place] [address]Dr. Garima Pulliam Erythrocyte distribution wid th (RBC) [Ratio] 13.2 % Normal 11.0-15.0 The [facility] Comment on above: Performed By: #### C BC ####[facility] Fyznpxpqu[address] [place], [place] [address]Dr. Garima Pulliam Hematocrit (Bld) [Volume fraction] 43.4 % Normal 4 2.0-54.0 [facility] Comment on above: Performed By: #### C BC ####[facility] [address]ixcwgwf[address] [place], [place] [address]Dr. Garima Pulliam Hemoglobin (Bld) [Mass/Vol] 14.3 g/dL Normal 14.0-18. 0 [facility] Comment on above: Performed By: #### C BC ####[facility] Jtriay[address]cmj[address] [place], [place] [address]Dr. Garima Pulliam IG # 0.02 10e3/ul Normal 0.00-0.03 [facility] Comment on above: Performed By: #### C BC ####[facility] V[address]vwjpowk[address] [place], [place] [address]Dr. Garima Pulliam IG % 0.3 % Normal 0.0-0.5 [facility] Comment on above: Performed By: #### C BC ####[facility] Qajsfahbyq[address] [place], [place] [address]Dr. Garima Pulliam LYMPH # 2.0 103/ul Normal 1.2-3.8 [facility] Comment on above: Performed By: #### C BC ####[facility] Sm[address]th[address]bt[address] [place], [place] [address]Dr. Garima Pulliam Lymphocytes/100 WBC (Bld) 24.8 % Normal 20.5-60.0 [facility] Comment on above: Performed By: #### C BC ####[facility] Wmcvowgyge2866 [place] [id number]. Garima Pulliam MANUAL DIFF REQ NO Normal [facility] Comment on above: Performed By: #### C BC ####[facility] Zboiyrjmxh1892 [place] [phone]. Garima Pulliam MCH (RBC) [Entitic mass] 30.0 pg Normal 25.9-34.0 [facility] Comment on above: Performed By: #### C BC ####[facility] Jshtvpmkgy8640 [place] [address]Dr. Garima Pulliam MCHC (RBC) [Mass/Vol] 32.9 g/dL Normal 29.9-35.2 [facility] Comment on above: Performed By: #### C BC ####[facility] Evefrtiezw5520 [place] [address]Dr. Garima Pulliam MCV (RBC) [Entitic vol] 91.0 fL Normal 80.0-94.0 [facility] Comment on above: Performed By: #### C BC ####[facility] Ge[address]vwv[address] [place], [place] [address]Dr. Garima Pulliam MONO # 0.8 103/ul Normal 0.3-0.8 [facility] Comment on above: Performed By: #### C BC ####[facility] T[address]uswstp[address] [place], [place] [address]Dr. Garima Heraclio Monocytes/100 WBC (Bld) 9.7 % Normal 1.7-12.0 [facility] Comment on above: Performed By: #### C BC ####[facility] Rhtbmbojen7152 [place] [address]Dr. Garima Pulliam NEUT # 4.9 103/ul Normal 1.4-6.5 [facility] Comment on above: Performed By: #### C BC ####[facility] Caywsnsjge[address] [place], [place] [address]Dr. Garima Heraclio Neutrophils/100 WBC (Bld) 62.7 % Normal 43.0-75.0 [facility] Comment on above: Performed By: #### C BC ####[facility] Zhsbrujxbc9818 [place] [phone]. Garima Pulliam Platelet mean volume (Bld) [Entitic vol] 8.8 fL Critically low 9.5-13.5 [facility] pital Comment on above: Performed By: #### C BC ####[facility] Avnamelylt5320 [place] [phone]. Garima Pulliam PLT 198 103/ul Normal 150-450 [facility] Comment on above: Performed By: #### C BC ####[facility] Mjjhfqwsir5697 [place] [phone]. Garima Pulliam RBC 4.77 106/ul Normal 4.70-6.10 [facility] Comment on above: Performed By: #### C BC ####[facility] Pgtqtzgnxb7213 [place] [address]Dr. Garima Pulliam WBC 7.9 103/ul Normal 4.0-11.0 [facility] Comment on above: Performed By: #### C BC ####[facility] [address]qesiuvu[address] [place], [place] [address]Dr. Garima Pulliam D-DIMERon 03-22-2023 D-DIMER 0.85 mg/L FEU Critically high <=0.59 [facility] Comment on above: Performed By: #### D DIM ####[facility] [address]wn[address] [place], [place] [id number]. Garima Pulliam D-DIMER COMMENTS SEE BELOW Normal [facility] Comment on above: Result Comment: Incr eases in D-Dimer concentration observed with thromboembolic events can be variable due to localization, size, and age of the thrombus. Therefore, a thromboembolic event cannot be diagnosed with certainty on the basis of the reference range. D-Dimers may also be elevated for a variety of disorders including: advanced age, , coronary disease, cancer, liver disease, infection, inflammation, hematoma, DIC, trauma, post-surgery, diabetes, thrombolytic or anticoagulant therapy, stress, and generalized hospitalization. Performed By: #### D DIM ####[facility] [address]uy[address]gnz[address] [place], [place] [address]Dr. Yilan Pulliam PROF CHEM 8 (BAS METB)on Anion gap [Moles/Vol] 6.9 mmol/L Normal [facility] Comment on above: Performed By: #### B CYCLE DIRECTOR, BMP ####[facility] W[address]pyxipiqy[address] [place], [place] [address]Dr. Garima Pulliam Calcium [Mass/Vol] 8.9 mg/dL Normal 8.5-10.1 [facility] Comment on above: Performed By: #### B CYCLE DIRECTOR, BMP ####[facility] Qpgdwmnblz[address] [place], [place] [address]Dr. Chapisrenu Pulliam Chloride [Moles/Vol] 101 mmol/L Normal 98-107 [facility] Comment on above: Performed By: #### B CYCLE DIRECTOR, BMP ####[facility] Smkfeywmql[address] [place], [place] [address]Dr. Chapisrenu Pulliam CO2 [Moles/Vol] 30.7 mmol/L Normal 21.0-32.0 [facility] Comment on above: Performed By: #### B CYCLE DIRECTOR, BMP ####[facility] Eljmzqihgc[address] [place], [place] [address]Dr. Chapisrenu Pulliam Creatinine [Mass/Vol] 0.82 mg/dL Normal 0.70-1.30 [facility] Comment on above: Performed By: #### B CYCLE DIRECTOR, BMP ####[facility] Fjmurydkee[address] [place], [place] [address]Dr. Garima Pulliam EGFR-AF IRISH >60 Normal >=60 [facility] Comment on above: Performed By: #### B CYCLE DIRECTOR, BMP ####[facility] Ptnkkhubqy[address] [place], [place] [address]Dr. Garima Pulliam EGFR-NON AF IRISH >60 Normal >=60 [facility] Comment on above: Performed By: #### B CYCLE DIRECTOR, BMP ####[facility] Bvpniforfj[address] [place], [place] [address]Dr. Garima Pulliam Glucose [Mass/Vol] 339 mg/dL Critically high 74-106 [facility] Comment on above: Performed By: #### B CYCLE DIRECTOR, BMP ####[facility] Cxqzvwvtzy[address] [place], [place] [address]Dr. Garima Pulliam Potassium [Moles/Vol] 3.6 mmol/L Normal 3.5-5.1 [facility] Comment on above: Performed By: #### B CYCLE DIRECTOR, BMP ####[facility] [address]vzsmty[address] [place], [place] [address]Dr. Garima Pulliam Sodium [Moles/Vol] 135 mmol/L Critically low 136-145 Th [facility] Comment on above: Performed By: #### B CYCLE DIRECTOR, BMP ####[facility] Nhpzjixkdo[address] [place], [place] [address]Dr. Garima Pulliam Urea nitrogen [Mass/Vol] 11.0 mg/dL Normal 7.0-18.0 [facility] Comment on above: Performed By: #### B CYCLE DIRECTOR, BMP ####[facility] Nxydzczvqx[address] [place], [place] [address]Dr. Garima Pulliam Urea nitrogen/Creatinine [Mass ratio] 13.4 mg/mg Normal [facility] Comment on above: Performed By: #### B CYCLE DIRECTOR, BMP ####[facility] Ofnraetyvh[address] [place], [place] [address]Dr. Garima Pulliam US VERONICA DOP LEG BILon 023 US VERONICA DOP LEG BENOIT Normal [facility] BNPon 03-18-2023 Natriuretic peptide B (Bld) [Mass/Vol] 226.0 pg/mL Normal <=900.0 [facility] pital Comment on above: Performed By: #### B CYCLE DIRECTOR, BMP ####[facility] Awlejdrpdr[address] [place], [place] [address]Dr. Garima Pulliam CBC AUTO DIFFon 03-18-2023 BASO # 0.0 103/ul Normal 0.0-0.1 [facility] Comment on above: Performed By: #### C BC ####[facility] Rvoazoxjvh[address] [place], [place] [address]Dr. Garima Pulliam Basophils/100 WBC (Bld) 0.2 % Normal 0.2-2.0 [facility] Comment on above: Performed By: #### C BC ####[facility] [address]watchjazt[address] [place], [place] [address]Dr. Garima Pulliam EO # 0.3 103/ul Normal 0.0-0.7 [facility] Comment on above: Performed By: #### C BC ####[facility] Wdnibbuuza[address] [place], [place] [address]Dr. Garima Pulliam Eosinophils/100 WBC (Bld) 2.5 % Normal 0.9-7.0 [facility] Comment on above: Performed By: #### C BC ####[facility] Z[address]qllvoyg[address] [place], [place] [address]Dr. Garima Pulliam Erythrocyte distribution wid th (RBC) [Ratio] 13.2 % Normal 11.0-15.0 [facility] Comment on above: Performed By: #### C BC ####[facility] Coihxqkyxa[address] [place], [place] [address]Dr. Garima Pulliam Hematocrit (Bld) [Volume fraction] 45.8 % Normal 4 2.0-54.0 [facility] Comment on above: Performed By: #### C BC ####[facility] Icxlykeiwn[address] [place], [place] [address]Dr. Garima Pulliam Hemoglobin (Bld) [Mass/Vol] 15.3 g/dL Normal 14.0-18. 0 [facility] Comment on above: Performed By: #### C BC ####[facility] [address]femoppn[address] [place], [place] [address]Dr. Garima Pulliam IG # 0.02 10e3/ul Normal 0.00-0.03 [facility] Comment on above: Performed By: #### C BC ####[facility] C[address]saatxoe[address] [place], [place] [address]Dr. Garima Pulliam IG % 0.2 % Normal 0.0-0.5 [facility] Comment on above: Performed By: #### C BC ####[facility] Fex[address]uzdmp[address] [place], [place] [address]Dr. Garima Pulliam LYMPH # 1.8 103/ul Normal 1.2-3.8 [facility] Comment on above: Performed By: #### C BC ####[facility] Ufdfenrffq9215 [place] [id number]. Garima Pulliam Lymphocytes/100 WBC (Bld) 18.3 % Critically low 20.5-6 0.0 [facility] Comment on above: Performed By: #### C BC ####[facility] [address] [place] [address]Dr. Garima Pulliam MANUAL DIFF REQ NO Normal [facility] Comment on above: Performed By: #### C BC ####[facility] [address]su[address] [place], [place] [id number]. Garima Pulliam MCH (RBC) [Entitic mass] 30.5 pg Normal 25.9-34.0 [facility] Comment on above: Performed By: #### C BC ####[facility] Fdrkoeciji[address] [place], [place] [address]Dr. Garima Pulliam MCHC (RBC) [Mass/Vol] 33.4 g/dL Normal 29.9-35.2 [facility] Comment on above: Performed By: #### C BC ####[facility] Deuidbumwe[address] [place], [place] [address]Dr. Garima Pulliam MCV (RBC) [Entitic vol] 91.2 fL Normal 80.0-94.0 [facility] Comment on above: Performed By: #### C BC ####[facility] Yfhdvcxlbv[address] [place], [place] [address]Dr. Garima Pulliam MONO # 0.8 103/ul Normal 0.3-0.8 [facility] ospital Comment on above: Performed By: #### C BC ####[facility] Kfgvovivgz[address] [place], [place] [address]Dr. Garima Pulliam Monocytes/100 WBC (Bld) 7.6 % Normal 1.7-12.0 [facility] Comment on above: Performed By: #### C BC ####[facility] Eapzbczqjy[address] [place], [place] [address]Dr. Garima Pulliam NEUT # 7.0 103/ul Critically high 1.4-6.5 [facility] Comment on above: Performed By: #### C BC ####[facility] Wirvac[address] [place] [id number]. Garima Pulliam Neutrophils/100 WBC (Bld) 71.2 % Normal 43.0-75.0 [facility] Comment on above: Performed By: #### C BC ####[facility] Hvkv[address]sswn4[address] [place] [id number]. Chapisrenu Heraclio Platelet mean volume (Bld) [Entitic vol] 8.9 fL Critically low 9.5-13.5 [facility] pital Comment on above: Performed By: #### C BC ####[facility] Iaqlupqkpz[address] [place], [place] [address]Dr. Garima Pulliam PLT 217 103/ul Normal 150-450 [facility] ospital Comment on above: Performed By: #### C BC ####[facility] Nmxsyxhhcq25[address] [place], [place] [address]Dr. Garima Pulliam RBC 5.02 106/ul Normal 4.70-6.10 [facility] Comment on above: Performed By: #### C BC ####[facility] Avualwllxv[address] [place], [place] [address]Dr. Garima Heraclio WBC 9.8 103/ul Normal 4.0-11.0 [facility] ospital Comment on above: Performed By: #### C BC ####[facility] Zlhbyltryk[address] [place], [place] [id number] Pulliam CRPon 03-18-2023 CRP 0.1 mg/dL Normal <=1.0 [facility] ospital Comment on above: Performed By: #### C RP ####[facility] Syskfoiorh[address] [place], [place] [address]Dr. Garima Pulliam PROF CHEM 8 (BAS METB)on Anion gap [Moles/Vol] 10.4 mmol/L Normal [facility] Comment on above: Performed By: #### B CYCLE DIRECTOR, BMP ####[facility] Dfnvjnqvsc[address] [place], [place] [address]DrAdalberto Pulliam Calcium [Mass/Vol] 8.8 mg/dL Normal 8.5-10.1 [facility] Comment on above: Performed By: #### B CYCLE DIRECTOR, BMP ####[facility] Xupbudmhvy5[address] [place], [place] [address]Dr. Garima Pulliam Chloride [Moles/Vol] 97 mmol/L Critically low 98-107 [facility] Comment on above: Performed By: #### B CYCLE DIRECTOR, BMP ####[facility] Hngcohjuqv7[address] [place], [place] [address]Dr. Garima Pulliam CO2 [Moles/Vol] 31.2 mmol/L Normal 21.0-32.0 The [facility] Comment on above: Performed By: #### B CYCLE DIRECTOR, BMP ####[facility] Kpzpimiwgz[address] [place], [place] [address]Dr. Garima Pulliam Creatinine [Mass/Vol] 0.91 mg/dL Normal 0.70-1.30 [facility] Comment on above: Performed By: #### B CYCLE DIRECTOR, BMP ####[facility] Uqzxxzdysz8[address] [place], [place] [address]Dr. Garima Pulliam EGFR-AF IRISH >60 Normal >=60 The [facility] Comment on above: Performed By: #### B CYCLE DIRECTOR, BMP ####[facility] Seszaafhlx2867[address] [place], [place] [address]Dr. Garima Pulliam EGFR-NON AF IRISH >60 Normal >=60 [facility] Comment on above: Performed By: #### B CYCLE DIRECTOR, BMP ####[facility] Juyimkcvst33[address] [place], [place] [address]Dr. Garima Pulliam Glucose [Mass/Vol] 315 mg/dL Critically high 74-106 [facility] Comment on above: Performed By: #### B CYCLE DIRECTOR, BMP ####[facility] Iyrhkbhryh9[address] [place], [place] [address]Dr. Chapisrenu Pulliam Potassium [Moles/Vol] 3.6 mmol/L Normal 3.5-5.1 [facility] Comment on above: Performed By: #### B CYCLE DIRECTOR, BMP ####[facility] Txfcgxgjvc[address] [place], [place] [address]Dr. Garima Pulliam Sodium [Moles/Vol] 135 mmol/L Critically low 136-145 Th [facility] Comment on above: Performed By: #### B CYCLE DIRECTOR, BMP ####[facility] Nqkjckripi18[address] [place], [place] [address]Dr. Garima Pulliam Urea nitrogen [Mass/Vol] 7.0 mg/dL Normal 7.0-18.0 [facility] Comment on above: Performed By: #### B CYCLE DIRECTOR, BMP ####[facility] Nnydyrcaks79[address] [place], [place] [address]Dr. Garima Pulliam Urea nitrogen/Creatinine [Mass ratio] 7.7 mg/mg Normal [facility] Comment on above: Performed By: #### B CYCLE DIRECTOR, BMP ####[facility] Hbejjhwbvr[address] [place], [place] [address]Dr. Garima Pulliam SED RATE WESTERGRENon 2022 SED RATE 8 mm/hr Normal <=20 [facility] ospital Comment on above: Performed By: #### S EDR ####[facility] Mqjcfkjyqd30[address] [place], [place] [address]Dr. Garima Pulliam BNPon 03-16-2023 Natriuretic peptide B (Bld) [Mass/Vol] 241.0 pg/mL Normal <=900.0 [facility] pital Comment on above: Performed By: #### B CYCLE DIRECTOR, BMP, HSTROPN ####[facility] Qxpldcjayl88[address] [place], [place] [address]Dr. Garima Pulliam CBC AUTO DIFFon 03-16-2023 BASO # 0.0 103/ul Normal 0.0-0.1 [facility] ospital Comment on above: Performed By: #### C BC ####[facility] Dmbwsrzeip40[address] [place], [place] [address]Dr. Garima Heraclio Basophils/100 WBC (Bld) 0.2 % Normal 0.2-2.0 [facility] Comment on above: Performed By: #### C BC ####[facility] Dlpxsurtqb8168[address] [place], [place] [address]Dr. Garima Pulliam EO # 0.2 103/ul Normal 0.0-0.7 [facility] o[facility]ital Comment on above: Performed By: #### C BC ####[facility] Yaywxbhkjx649[address] [place], [place] [address]Dr. Garima Heraclio Eosinophils/100 WBC (Bld) 2.7 % Normal 0.9-7.0 [facility] Comment on above: Performed By: #### C BC ####[facility] Kqcpnebeul[address] [place], [place] [address]Dr. Garima Pulliam Erythrocyte distribution wid th (RBC) [Ratio] 13.1 % Normal 11.0-15.0 [facility] pital Comment on above: Performed By: #### C BC ####[facility] Lsfzelttfr6[address] [place], [place] [address]Dr. Garima Pulliam Hematocrit (Bld) [Volume fraction] 41.8 % Critically low 42.0-54.0 [facility] pital Comment on above: Performed By: #### C BC ####[facility] Qgwdsdmloa[address] [place], [place] [address]Dr. Garima Pulliam Hemoglobin (Bld) [Mass/Vol] 14.0 g/dL Normal 14.0-18. 0 [facility] Comment on above: Performed By: #### C BC ####[facility] Vbxwsuyfff[address] [place], [place] [address]Dr. Garima Pulliam IG # 0.03 10e3/ul Normal 0.00-0.03 [facility] Comment on above: Performed By: #### C BC ####[facility] Zjjabqxokh[address] [place], [place] [address]Dr. Garima Pulliam IG % 0.3 % Normal 0.0-0.5 [facility] ospital Comment on above: Performed By: #### C BC ####[facility] Jmoxbynuii[address] [place], [place] [address]Dr. Garima Pulliam LYMPH # 2.1 103/ul Normal 1.2-3.8 [facility] ospital Comment on above: Performed By: #### C BC ####[facility] Gxbdjurlpt18[address] [place], [place] [address]Dr. Garima Pulliam Lymphocytes/100 WBC (Bld) 24.2 % Normal 20.5-60.0 [facility] Comment on above: Performed By: #### C BC ####[facility] Qx[address]plbkmz[address] [place], [place] [address]Dr. Garima Pulliam MANUAL DIFF REQ NO Normal [facility] Comment on above: Performed By: #### C BC ####[facility] Rboclzeawl8[address] [place], [place] [address]Dr. Garima Pulliam MCH (RBC) [Entitic mass] 30.2 pg Normal 25.9-34.0 [facility] Comment on above: Performed By: #### C BC ####[facility] Bfxajsbbxc3[address] [place], [place] [address]Dr. Garima Pulliam MCHC (RBC) [Mass/Vol] 33.5 g/dL Normal 29.9-35.2 [facility] Comment on above: Performed By: #### C BC ####[facility] Afoaxevfye[address] [place], [place] [address]Dr. Garima Pulliam MCV (RBC) [Entitic vol] 90.1 fL Normal 80.0-94.0 [facility] Comment on above: Performed By: #### C BC ####[facility] Extmffukkr[address]14[address] [place], [place] [address]Dr. Garima Pulliam MONO # 0.6 103/ul Normal 0.3-0.8 [facility] o[facility]ital Comment on above: Performed By: #### C BC ####[facility] Gmrpucjovq[address] [place], [place] [address]Dr. Garima Pulliam Monocytes/100 WBC (Bld) 7.4 % Normal 1.7-12.0 [facility] Comment on above: Performed By: #### C BC ####[facility] Bsydxbmsvp52[address] [place], [place] [address]DrAdalberto Pulliam NEUT # 5.6 103/ul Normal 1.4-6.5 [facility]ital Comment on above: Performed By: #### C BC ####[facility] Uujlbpqhrk[address] [place], [place] [address]Dr. Garima Pulliam Neutrophils/100 WBC (Bld) 65.2 % Normal 43.0-75.0 [facility] Comment on above: Performed By: #### C BC ####[facility] [address] [place] [address]Dr. Garima Pulliam Platelet mean volume (Bld) [Entitic vol] 8.7 fL Critically low 9.5-13.5 [facility] pital Comment on above: Performed By: #### C BC ####[facility] Vbxxbzctpw[address] [place], [place] [address]Dr. Garima Pulliam PLT 195 103/ul Normal 150-450 [facility] Comment on above: Performed By: #### C BC ####[facility] Yaaqrxhplw[address] [place], [place] [address]Dr. Garima Pulliam RBC 4.64 106/ul Critically low 4.70-6.10 The [facility] Comment on above: Performed By: #### C BC ####[facility] Xwysysxixg[address] [place], [place] [address]Dr. Garima Pulliam WBC 8.6 103/ul Normal 4.0-11.0 [facility] Comment on above: Performed By: #### C BC ####[facility] Sxsdvfrnop[address] [place], [place] [address]Dr. Garima Pulliam PROF CHEM 8 (BAS METB)on Anion gap [Moles/Vol] 6.7 mmol/L Normal [facility] Comment on above: Performed By: #### B CYCLE DIRECTOR, BMP, HSTROPN ####[facility] Kliierbfcd78[address] [place], [place] [address]Dr. Garima Pulliam Calcium [Mass/Vol] 8.8 mg/dL Normal 8.5-10.1 [facility] Comment on above: Performed By: #### B CYCLE DIRECTOR, BMP, HSTROPN ####[facility] [address] [place] [address]Dr. Garima Heraclio Chloride [Moles/Vol] 106 mmol/L Normal 98-107 [facility] Comment on above: Performed By: #### B CYCLE DIRECTOR, BMP, HSTROPN ####[facility] We[address]cev[address] [place] [address]Dr. Garima Pulliam CO2 [Moles/Vol] 31.4 mmol/L Normal 21.0-32.0 [facility] Comment on above: Performed By: #### B CYCLE DIRECTOR, BMP, HSTROPN ####[facility] Jhpwq[address]wjed[address] [place] [address]Dr. Garima Pulliam Creatinine [Mass/Vol] 0.75 mg/dL Normal 0.70-1.30 [facility] Comment on above: Performed By: #### B CYCLE DIRECTOR, BMP, HSTROPN ####[facility] V[address]ksfsterc[address] [place], [place] [address]Dr. Garima Pulliam EGFR-AF IRISH >60 Normal >=60 [facility] Comment on above: Performed By: #### B CYCLE DIRECTOR, BMP, HSTROPN ####[facility] Hogbxjusqy7414[address] [place], [place] [address]Dr. Garima Pulliam EGFR-NON AF IRISH >60 Normal >=60 [facility] Comment on above: Performed By: #### B CYCLE DIRECTOR, BMP, HSTROPN ####[facility] Xhtfffgxxd[address] [place], [place] [address]Dr. Garima Pulliam Glucose [Mass/Vol] 161 mg/dL Critically high 74-106 T [facility] Comment on above: Performed By: #### B CYCLE DIRECTOR, BMP, HSTROPN ####[facility] R[address]qbwohnm[address] [place], [place] [address]Dr. Garima Pulliam Potassium [Moles/Vol] 4.1 mmol/L Normal 3.5-5.1 [facility] Comment on above: Performed By: #### B CYCLE DIRECTOR, BMP, HSTROPN ####[facility] Xupfuuckyu[address] [place], [place] [address]Dr. Garima Pulliam Sodium [Moles/Vol] 140 mmol/L Normal 136-145 [facility] Comment on above: Performed By: #### B CYCLE DIRECTOR, BMP, HSTROPN ####[facility] Jrwxapmlpa7[address] [place], [place] [address]Dr. Garima Pulliam Urea nitrogen [Mass/Vol] 7.0 mg/dL Normal 7.0-18.0 [facility] Comment on above: Performed By: #### B CYCLE DIRECTOR, BMP, HSTROPN ####[facility] [address] [place] [address]Dr. Garima Pulliam Urea nitrogen/Creatinine [Mass ratio] 9.3 mg/mg Normal [facility] Comment on above: Performed By: #### B CYCLE DIRECTOR, BMP, HSTROPN ####[facility] P[address]framm[address] [place] [id number]. Garima Pulliam TROPONIN, HIGH SENSITIVITYon 03-16-2023 HSTROP 9.7 pg/mL Normal 4.0-76.1 [facility] Comment on above: Result Comment: CUT- OFF POINTS HAVE BEEN ESTABLISHED BASED ON THE FOURTH UNIVERSAL DEFINITIONS OF MYOCARDIALINFARCTION. THE UPPER REFERENCE LIMIT (URL) OF TROPONIN, DEFINED THE 99TH PERCENTILE OFcTnI DISTRIBUTION IN A REFERENCE POPULATION, HAS BEEN CONFIRMED THE DECISION THRESHOLDFOR W[place] DIAGNOSIS. Performed By: #### B CYCLE DIRECTOR, BMP, HSTROPN ####[facility] [address]ujz[address] [place] [address]Dr. Garima Pulliam XR CHEST 1 Von 03-16-2023 XR CHEST 1 V Normal [facility] BNPon 03-06-2023 Natriuretic peptide B (Bld) [Mass/Vol] 111.0 pg/mL Normal <=900.0 [facility] pital Comment on above: Performed By: #### C MP, BNP, CK ####[facility] [address] [place] [address]Dr. Garima Pulliam CBC AUTO DIFFon 03-06-2023 BASO # 0.0 103/ul Normal 0.0-0.1 The [facility] Comment on above: Performed By: #### C BC ####[facility] C[address]unrk[address] [place] [address]Dr. Garima Pulliam Basophils/100 WBC (Bld) 0.2 % Normal 0.2-2.0 [facility] Comment on above: Performed By: #### C BC ####[facility] Z[address]wbuixhj[address] [place] [id number]. Garima Pulliam EO # 0.3 103/ul Normal 0.0-0.7 [facility] ospital Comment on above: Performed By: #### C BC ####[facility] Fqumqrrxgt[address] [place], [place] [address]Dr. Garima Pulliam Eosinophils/100 WBC (Bld) 3.5 % Normal 0.9-7.0 [facility] Comment on above: Performed By: #### C BC ####[facility] Loucuwmsva[address] [place], [place] [address]Dr. Garima Pulliam Erythrocyte distribution wid th (RBC) [Ratio] 13.3 % Normal 11.0-15.0 [facility] Comment [facility] above: Performed By: #### C BC ####[facility] Qq[address]mezda[address] [place], [place] [address]Dr. Chapisrenu Pulliam Hematocrit (Bld) [Volume fraction] 43.7 % Normal 4 2.0-54.0 [facility] Comment on above: Performed By: #### C BC ####[facility] Z[address]so[address]vbr[address] [place], [place] [address]Dr. Garima Pulliam Hemoglobin (Bld) [Mass/Vol] 14.7 g/dL Normal 14.0-18. 0 [facility] Comment on above: Performed By: #### C BC ####[facility] Yot[address]ci[address] [place], [place] [address]Dr. Chapisrenu Pulliam IG # 0.03 10e3/ul Normal 0.00-0.03 [facility] Comment on above: Performed By: #### C BC ####[facility] In[address]qbovep[address] [place], [place] [address]Dr. Garima Pulliam IG % 0.4 % Normal 0.0-0.5 [facility] Comment on above: Performed By: #### C BC ####[facility] Ykgqptclrw[address] [place], [place] [address]Dr. Chapisrenu Pulliam LYMPH # 2.0 103/ul Normal 1.2-3.8 [facility]ital Comment on above: Performed By: #### C BC ####[facility] [address]tiymo[address] [place] [id number]. Garima Pulliam Lymphocytes/100 WBC (Bld) 23.7 % Normal 20.5-60.0 [facility] Comment on above: Performed By: #### C BC ####[facility] [address]su[address] [place] [id number]. Garima Pulliam MANUAL DIFF REQ NO Normal [facility] Comment on above: Performed By: #### C BC ####[facility] C[address]vcqmg3[address] [place] [id number]. Garima Pulliam MCH (RBC) [Entitic mass] 30.1 pg Normal 25.9-34.0 [facility] Comment on above: Performed By: #### C BC ####[facility] L[address]hrzmk[address] [place] [id number]. Garima Pulliam MCHC (RBC) [Mass/Vol] 33.6 g/dL Normal 29.9-35.2 [facility] Comment on above: Performed By: #### C BC ####[facility] W[address]upf[address] [place] [phone]. Garima Pulliam MCV (RBC) [Entitic vol] 89.4 fL Normal 80.0-94.0 [facility] Comment on above: Performed By: #### C BC ####[facility] V[address]xeqcr[address] [place] [phone]. Garima Pulliam MONO # 0.8 103/ul Normal 0.3-0.8 [facility] Comment on above: Performed By: #### C BC ####[facility] F[address]ql[address]nygyi[address] [place] [phone]. Garima Pulliam Monocytes/100 WBC (Bld) 9.0 % Normal 1.7-12.0 [facility] Comment on above: Performed By: #### C BC ####[facility] [address]osvhvw[address] [place] [phone]. Garima Pulliam NEUT # 5.4 103/ul Normal 1.4-6.5 [facility]ital Comment on above: Performed By: #### C BC ####[facility] P[address]ucbib[address] [place] [address]Dr. Garima Pulliam Neutrophils/100 WBC (Bld) 63.2 % Normal 43.0-75.0 [facility] Comment on above: Performed By: #### C BC ####[facility] T[address]knl[address] [place] [address]Dr. Garima Pulliam Platelet mean volume (Bld) [Entitic vol] 9.0 fL Critically low 9.5-13.5 [facility] pital Comment on above: Performed By: #### C BC ####[facility] Efkxwqiwyi[address] [place], [place] [address]Dr. Garima Pulliam PLT 218 103/ul Normal 150-450 [facility] ostal Comment on above: Performed By: #### C BC ####[facility] Dyygmtjzvl[address] [place], [place] [address]Dr. Garima Heraclio RBC 4.89 106/ul Normal 4.70-6.10 [facility] Comment on above: Performed By: #### C BC ####[facility] H[address]ijtxgrmv[address] [place], [place] [address]Dr. Garima Pulliam WBC 8.5 103/ul Normal 4.0-11.0 [facility] Comment on above: Performed By: #### C BC ####[facility] Ipfpbwylsi[address] [place], [place] [address]Dr. Garima Heraclio CPKon 03-06-2023 CK [Catalytic activity/Vol] 191 U/L Normal 39-308 [facility] Comment on above: Performed By: #### C MP, BNP, CK ####[facility] Verzhxffzm[address] [place], [place] [address]Dr. Garima Pulliam PROF 14(COMP METB)on 023 Albumin [Mass/Vol] 3.6 g/dL Normal 3.4-5.0 [facility] Comment on above: Performed By: #### C MP, BNP, CK ####[facility] [address]ipc[address] [place] [address]Dr. Garima Pulliam Albumin/Globulin [Mass ratio] 1.2 {ratio} Normal [facility] Comment on above: Performed By: #### C MP, BNP, CK ####[facility] [address]hcr[address] [place] [address]Dr. Garima Pulliam ALP [Catalytic activity/Vol] 91 U/L Normal 46-116 [facility] Comment on above: Performed By: #### C MP, BNP, CK ####[facility] X[address]obpymaj[address] [place] [address]Dr. Garima Pulliam ALT [Catalytic activity/Vol] 33 U/L Normal 16-63 [facility] Comment on above: Performed By: #### C MP, BNP, CK ####[facility] Xfhcqfbzau99[address] [place] [address]Dr. Chapisrenu Pulliam Anion gap [Moles/Vol] 10.3 mmol/L Normal [facility] Comment on above: Performed By: #### C MP, BNP, CK ####[facility] [address]opx[address] [place], [place] [address]Dr. Garima Pulliam AST [Catalytic activity/Vol] 17 U/L Normal 15-37 [facility] Comment on above: Performed By: #### C MP, BNP, CK ####[facility] Mgctskgmmo2[address] [place] [address]Dr. Chapisrenu Pulliam Bilirubin [Mass/Vol] 0.4 mg/dL Normal 0.2-1.0 [facility] Comment on above: Performed By: #### C MP, BNP, CK ####[facility] Bxzxiexrqi[address] [place] [address]Dr. Chapisrenu Pulliam Calcium [Mass/Vol] 9.1 mg/dL Normal 8.5-10.1 [facility] Comment on above: Performed By: #### C MP, BNP, CK ####[facility] Kadezndbcc[address] [place] [address]Dr. Garima Pulliam Chloride [Moles/Vol] 102 mmol/L Normal 98-107 [facility] Comment on above: Performed By: #### C MP, BNP, CK ####[facility] Axssynbhxz[address] [place] [phone]. Garima Pulliam CO2 [Moles/Vol] 29.7 mmol/L Normal 21.0-32.0 The [facility] Comment on above: Performed By: #### C MP, BNP, CK ####[facility] Sjrjvewlqe[address] [place] [address]Dr. Garima Pulliam Creatinine [Mass/Vol] 0.79 mg/dL Normal 0.70-1.30 [facility] Comment on above: Performed By: #### C MP, BNP, CK ####[facility] Nmwobqvzmp[address] [place] [address]Dr. Garima Pulliam EGFR-AF IRISH >60 Normal >=60 [facility] Comment on above: Performed By: #### C MP, BNP, CK ####[facility] Uvieveklms[address] [place] [address]Dr. Chapisrenu Pulliam EGFR-NON AF IRISH >60 Normal >=60 [facility] Comment on above: Performed By: #### C MP, BNP, CK ####[facility] Etjnpjfunj[address] [place] [address]Dr. Garima Pulliam Globulin (S) [Mass/Vol] 3.0 g/dL Normal [facility] Comment on above: Performed By: #### C MP, BNP, CK ####[facility] Ajvxbohjlo4[address] [place] [id number]. Garima Pulliam Glucose [Mass/Vol] 202 mg/dL Critically high 74-106 [facility] Comment on above: Performed By: #### C MP, BNP, CK ####[facility] Jhmihzarrj[address] [place] [address]Dr. Garima Pulliam Potassium [Moles/Vol] 4.0 mmol/L Normal 3.5-5.1 [facility] Comment on above: Performed By: #### C MP, BNP, CK ####[facility] Lnwgkslurj[address] [place] [address]Dr. Chapisrenu Pulliam Protein [Mass/Vol] 6.6 g/dL Normal 6.4-8.2 [facility] Comment on above: Performed By: #### C MP, BNP, CK ####[facility] Wvpehewsuh[address] [place] [address]Dr. Garima Pulliam Sodium [Moles/Vol] 138 mmol/L Normal 136-145 [facility] Comment on above: Performed By: #### C MP, BNP, CK ####[facility] [address]prvw[address] [place], [place] [address]Dr. Garima Heraclio Urea nitrogen [Mass/Vol] 10.0 mg/dL Normal 7.0-18.0 [facility] Comment on above: Performed By: #### C MP, BNP, CK ####[facility] C[address]blbrjs[address] [place], [place] [address]Dr. Chapisrenu Pulliam Urea nitrogen/Creatinine [Mass ratio] 12.7 mg/mg Normal [facility] Comment on above: Performed By: #### C MP, BNP, CK ####[facility] [address]ubiy[address] [place], [place] [address]Dr. Garima Pulliam US VERONICA DOP LEG BILon 023 US VERONICA DOP LEG BENOIT Normal [facility] CBC AUTO DIFFon 01-13-2023 BASO # 0.0 103/ul Normal 0.0-0.1 [facility] Comment on above: Performed By: #### C BC ####[facility] [address]zbmnsbw[address] [place], [place] [address]Dr. Garima Pulliam Basophils/100 WBC (Bld) 0.0 % Critically low 0.2-2.0 [facility] Comment on above: Performed By: #### C BC ####[facility] K[address]ufhdgm[address] [place], [place] [address]Dr. Garima Pulliam EO # 0.0 103/ul Normal 0.0-0.7 [facility] Comment on above: Performed By: #### C BC ####[facility] Mrjetkihrc[address] [place], [place] [address]Dr. Garima Pulliam Eosinophils/100 WBC (Bld) 0.0 % Critically low 0.9-7. 0 [facility] Comment on above: Performed By: #### C BC ####[facility] Rnqynqqvtd[address] [place] [address]Dr. Garima Pulliam Erythrocyte distribution wid th (RBC) [Ratio] 13.2 % Normal 11.0-15.0 [facility] Comment on above: Performed By: #### C BC ####[facility] Inrzbppqsn[address] [place] [address]Dr. Garima Pulliam Hematocrit (Bld) [Volume fraction] 46.7 % Normal 4 2.0-54.0 [facility] Comment on above: Performed By: #### C BC ####[facility] Hwehxxrikt[address] [place], [place] [address]Dr. Garima Pulliam Hemoglobin (Bld) [Mass/Vol] 15.6 g/dL Normal 14.0-18. 0 [facility] Comment on above: Performed By: #### C BC ####[facility] Gnecerpnfz[address] [place], [place] [address]Dr. Garima Pulliam IG # 0.01 10e3/ul Normal 0.00-0.03 [facility] Comment on above: Performed By: #### C BC ####[facility] Nhxnkrcomj[address] [place], [place] [address]Dr. Garima Pulliam IG % 0.2 % Normal 0.0-0.5 [facility]ital Comment on above: Performed By: #### C BC ####[facility] Kbydvanieb[address] [place], [place] [address]Dr. Garima Pulliam LYMPH # 0.8 103/ul Critically low 1.2-3.8 [facility] Comment on above: Performed By: #### C BC ####[facility] Vrwszxvpfc[address] [place], [place] [address]Dr. Garima Pulliam Lymphocytes/100 WBC (Bld) 12.7 % Critically low 20.5-6 0.0 [facility] Comment on above: Performed By: #### C BC ####[facility] Syoimukrsx[address] [place], [place] [address]Dr. Garima Heraclio MANUAL DIFF REQ NO Normal The [facility] Comment on above: Performed By: #### C BC ####[facility] Ussfnrfrfq[address] [place] [address]DrAdalberto Pulliam MCH (RBC) [Entitic mass] 30.2 pg Normal 25.9-34.0 [facility] Comment on above: Performed By: #### C BC ####[facility] Ydgiwgkozy[address] [place] [address]DrAdalberto Pulliam MCHC (RBC) [Mass/Vol] 33.4 g/dL Normal 29.9-35.2 [facility] Comment on above: Performed By: #### C BC ####[facility] Chbrmptcjo3[address] [place] [address]DrAdalberto Pulliam MCV (RBC) [Entitic vol] 90.3 fL Normal 80.0-94.0 [facility] Comment on above: Performed By: #### C BC ####[facility] Vhjkmtqxhy[address] [place], [place] [address]DrAdalberto Pulliam MONO # 0.1 103/ul Critically low 0.3-0.8 [facility] Comment on above: Performed By: #### C BC ####[facility] Bvwokrjmls[address] [place], [place] [address]DrAdalberto Pulliam Monocytes/100 WBC (Bld) 0.9 % Critically low 1.7-12.0 [facility] Comment on above: Performed By: #### C BC ####[facility] Kpvjblicxm9[address] [place], [place] [address]DrAdalberto Pulliam NEUT # 5.6 103/ul Normal 1.4-6.5 [facility] ospital Comment on above: Performed By: #### C BC ####[facility] Geteivnawv30[address] [place] [address]DrAdalberto Pulliam Neutrophils/100 WBC (Bld) 86.2 % Critically high 43.0- 75.0 [facility] Comment on above: Performed By: #### C BC ####[facility] Kwzbcjoobg9388 [place] [address]DrAdalberto Pulliam Platelet mean volume (Bld) [Entitic vol] 9.1 fL Critically low 9.5-13.5 [facility] pital Comment on above: Performed By: #### C BC ####[facility] Ehwquurxhh39[address] [place] [id number]. Garima Pulliam PLT 169 103/ul Normal 150-450 [facility] Comment on above: Performed By: #### C BC ####[facility] Llyihjcldl[address] [place] [id number]. Garima Pulliam RBC 5.17 106/ul Normal 4.70-6.10 [facility] Comment on above: Performed By: #### C BC ####[facility] Xhjmnpotla7[address] [place] [address]Dr. Garima Pulliam WBC 6.5 103/ul Normal 4.0-11.0 [facility] Comment on above: Performed By: #### C BC ####[facility] Rxabspfbxd1237 [place] [address]DrAdalberto Pulliam D-DIMERon 01-13-2023 D-DIMER 0.41 mg/L FEU Normal <=0.59 The [facility] Comment on above: Performed By: #### D DIM ####[facility] Pmrmatwoej34[address] [place] [id number]. Graima Pulilam D-DIMER COMMENTS SEE BELOW Normal The [facility] Comment on above: Result Comment: Incr eases in D-Dimer concentration observed with thromboembolic events can be variable due to localization, size, and age of the thrombus. Therefore, a thromboembolic event cannot be diagnosed with certainty on the basis of the reference range. D-Dimers may also be elevated for a variety of disorders including: advanced age, , coronary disease, cancer, liver disease, infection, inflammation, hematoma, DIC, trauma, post-surgery, diabetes, thrombolytic or anticoagulant therapy, stress, and generalized hospitalization. Performed By: #### D DIM ####[facility] Yuupdwawiu39[address] [place] [id number]. Garima Pulliam PROF 14(COMP METB)on 023 Albumin [Mass/Vol] 3.4 g/dL Normal 3.4-5.0 [facility] Comment on above: Performed By: #### C MP ####[facility] Fncyuftvhl18[address] [place] [address]Dr. Garima Pulliam Albumin/Globulin [Mass ratio] 1.3 {ratio} Normal [facility] Comment on above: Performed By: #### C MP ####[facility] Cxyoxfvbcd8713 [place] [address]Dr. Chapisrenu Heraclio ALP [Catalytic activity/Vol] 83 U/L Normal 46-116 [facility] Comment on above: Performed By: #### C MP ####[facility] Sauwxoletp[address] [place], [place] [address]Dr. Garima Pulliam ALT [Catalytic activity/Vol] 25 U/L Normal 16-63 [facility] Comment on above: Performed By: #### C MP ####[facility] Mdgzzeallm97[address] [place], [place] [address]Dr. Garima Pulliam Anion gap [Moles/Vol] 14.5 mmol/L Normal [facility] Comment on above: Performed By: #### C MP ####[facility] Ianwluazin[address] [place], [place] [address]Dr. Garima Pulliam AST [Catalytic activity/Vol] 19 U/L Normal 15-37 [facility] Comment on above: Performed By: #### C MP ####[facility] Xuyvxoriww9[address] [place], [place] [address]Dr. Garima Pulliam Bilirubin [Mass/Vol] 0.4 mg/dL Normal 0.2-1.0 [facility] Comment on above: Performed By: #### C MP ####[facility] Bmmbkkkzrz[address] [place], [place] [address]Dr. Garima Pulliam Calcium [Mass/Vol] 8.7 mg/dL Normal 8.5-10.1 [facility] Comment on above: Performed By: #### C MP ####[facility] Uuhadiorkv[address] [place], [place] [address]Dr. Garima Pulliam Chloride [Moles/Vol] 104 mmol/L Normal 98-107 [facility] Comment on above: Performed By: #### C MP ####[facility] Tyibngmzvq[address] [place] [address]Dr. Garima Pulliam CO2 [Moles/Vol] 24.5 mmol/L Normal 21.0-32.0 [facility] [place] Comment on above: Performed By: #### C MP ####[facility] Nltbkjdcpx2123 [place] [address]Dr. Garima Pulliam Creatinine [Mass/Vol] 0.70 mg/dL Normal 0.70-1.30 [facility] Comment on above: Performed By: #### C MP ####[facility] Mylsukspei4668 [place] [address]Dr. Garima Pulliam EGFR-AF IRISH >60 Normal >=60 [facility] [place] Comment on above: Performed By: #### C MP ####[facility] Hfkjakijvt[address] [place], [place] [address]Dr. Garima Pulliam EGFR-NON AF IRISH >60 Normal >=60 [facility] Comment on above: Performed By: #### C MP ####[facility] Pyopbfzrgc9[address] [place], [place] [address]Dr. Garima Pulliam Globulin (S) [Mass/Vol] 2.6 g/dL Normal [facility] Comment on above: Performed By: #### C MP ####[facility] Sqvgnnacvs[address] [place], [place] [address]Dr. Garima Pulliam Glucose [Mass/Vol] 196 mg/dL Critically high 74-106 [facility] Comment on above: Performed By: #### C MP ####[facility] Spqlqnjbpx8[address] [place], [place] [address]Dr. Garima Pulliam Potassium [Moles/Vol] 4.0 mmol/L Normal 3.5-5.1 [facility] Comment on above: Performed By: #### C MP ####[facility] Uvrgtoggcj2540[address] [place], [place] [address]Dr. Garima Pulliam Protein [Mass/Vol] 6.0 g/dL Critically low 6.4-8.2 [facility] Comment on above: Performed By: #### C MP ####[facility] Psnsliccqr1515 [place] [address]Dr. Garima Pulliam Sodium [Moles/Vol] 139 mmol/L Normal 136-145 [facility] Comment on above: Performed By: #### C MP ####[facility] Tfcokkgmif14[address] [place], [place] [address]Dr. Garima Heraclio Urea nitrogen [Mass/Vol] 7.0 mg/dL Normal 7.0-18.0 [facility] Comment on above: Performed By: #### C MP ####[facility] Itulzrtwge[address] [place], [place] [address]Dr. Garima Heraclio Urea nitrogen/Creatinine [Mass ratio] 10.0 mg/mg Normal [facility] Comment on above: Performed By: #### C MP ####[facility] Bucxespcdz2039[address] [place], [place] [address]Dr. Garima Heraclio BNPon 01-12-2023 Natriuretic peptide B (Bld) [Mass/Vol] 141.0 pg/mL Normal <=900.0 [facility] pital Comment on above: Performed By: #### C MP, BNP, HSTROPN ####[facility] Snhxulgoya9398[address] [place], [place] [address]Dr. Chapisrenu Pulliam CBC AUTO DIFFon 01-12-2023 BASO # 0.0 103/ul Normal 0.0-0.1 [facility] Comment on above: Performed By: #### C BC ####[facility] Napdbrlobg25[address] [place], [place] [address]Dr. Garima Pulliam Basophils/100 WBC (Bld) 0.2 % Normal 0.2-2.0 [facility] Comment on above: Performed By: #### C BC ####[facility] Nsgkuiclyh7[address] [place], [place] [address]Dr. Garima Pulliam EO # 0.2 103/ul Normal 0.0-0.7 [facility] ospital Comment on above: Performed By: #### C BC ####[facility] Ehpogozvkb5645[address] [place], [place] [address]Dr. Garima Pulliam Eosinophils/100 WBC (Bld) 2.7 % Normal 0.9-7.0 [facility] Comment on above: Performed By: #### C BC ####[facility] Lycavkybkp[address] [place], [place] [address]Dr. Garima Pulliam Erythrocyte distribution wid th (RBC) [Ratio] 13.3 % Normal 11.0-15.0 [facility] Comment on above: Performed By: #### C BC ####[facility] Guzhedyfwa17[address] [place], [place] [address]Dr. Garima Pulliam Hematocrit (Bld) [Volume fraction] 42.3 % Normal 4 2.0-54.0 [facility] Comment on above: Performed By: #### C BC ####[facility] Afhngqiagm8756[address] [place], [place] [address]Dr. Garima Pulliam Hemoglobin (Bld) [Mass/Vol] 14.3 g/dL Normal 14.0-18. 0 [facility] Comment on above: Performed By: #### C BC ####[facility] Htlsgzrmpm[address] [place], [place] [address]Dr. Garima Pulliam IG # 0.02 10e3/ul Normal 0.00-0.03 [facility] Comment on above: Performed By: #### C BC ####[facility] Sesbtrgfyo09[address] [place], [place] [address]Dr. Garima Pulliam IG % 0.2 % Normal 0.0-0.5 [facility]ital Comment on above: Performed By: #### C BC ####[facility] Nigmbqdcxn4112[address] [place], [place] [address]Dr. Garima Pulliam LYMPH # 2.6 103/ul Normal 1.2-3.8 [facility]ital Comment on above: Performed By: #### C BC ####[facility] Jsqldelhgv2[address] [place], [place] [address]Dr. Garima Pulliam Lymphocytes/100 WBC (Bld) 29.6 % Normal 20.5-60.0 [facility] Comment on above: Performed By: #### C BC ####[facility] Fvbmtnozrx8[address] [place], [place] [address]Dr. Garima Pulliam MANUAL DIFF REQ NO Normal The [facility] Comment on above: Performed By: #### C BC ####[facility] Qlppquplbk04[address] [place] [address]Dr. Garima Pulliam MCH (RBC) [Entitic mass] 30.2 pg Normal 25.9-34.0 [facility] Comment on above: Performed By: #### C BC ####[facility] Rdzwnhfvml[address] [place], [place] [address]Dr. Garima Pulliam MCHC (RBC) [Mass/Vol] 33.8 g/dL Normal 29.9-35.2 [facility] Comment on above: Performed By: #### C BC ####[facility] Cvgpxilkgy[address] [place], [place] [address]Dr. Garima Heraclio MCV (RBC) [Entitic vol] 89.2 fL Normal 80.0-94.0 [facility] Comment on above: Performed By: #### C BC ####[facility] Tverguoyot[address] [place], [place] [address]Dr. Garima Heraclio MONO # 0.7 103/ul Normal 0.3-0.8 The [facility] Comment on above: Performed By: #### C BC ####[facility] Qtchcktnvo280[address] [place], [place] [address]Dr. Chapisrenu Pulliam Monocytes/100 WBC (Bld) 8.3 % Normal 1.7-12.0 [facility] Comment on above: Performed By: #### C BC ####[facility] Dtfdcfcaxr[address] [place], [place] [address]Dr. Chapisrenu Heraclio NEUT # 5.1 103/ul Normal 1.4-6.5 [facility] Comment on above: Performed By: #### C BC ####[facility] Lhjbmpgmmr[address] [place], [place] [address]Dr. Garima Heraclio Neutrophils/100 WBC (Bld) 59.0 % Normal 43.0-75.0 [facility] Comment on above: Performed By: #### C BC ####[facility] Qizvsipfza8756 [place], [place] [address]Wg. Garima Pulliam Platelet mean volume (Bld) [Entitic vol] 8.7 fL Critically low 9.5-13.5 [facility] pital Comment on above: Performed By: #### C BC ####[facility] Xfavmxmjos9188 [place], [place] [address]Ib. Garima Pulliam PLT 182 103/ul Normal 150-450 [facility] ospital Comment on above: Performed By: #### C BC ####[facility] Qbwzpnbpff9780 [place], [place] [address]Jt. Garima Pulliam RBC 4.74 106/ul Normal 4.70-6.10 [facility] Comment on above: Performed By: #### C BC ####[facility] Hysdwknnxh14[address] [place] [id number]. Garima Pulliam WBC 8.7 103/ul Normal 4.0-11.0 [facility]ital Comment on above: Performed By: #### C BC ####[facility] Zkrumadmgi4652 [place], [place] [address]Fi. Garima Pulliam Covid-19 PCR ([facility])on 12-25 SARS-CoV-2 (COVID-19) RNA MARIE+probe Ql (Unsp spec) Not detected Normal NOT DETECTED [facility] Comment on above: Result Comment: When diagnostic testing is negative, the possibility of a false negative should be considered inthe context of a patient's recent exposures and the presence of clinical signs and symptomsconsistent with SARS-CoV-2.This test is not yet approved or cleared by the [place] FDA. When there are no FDA-approved or cleared tests available, and other criteria are met, FDA can make tests available under an emergency access mechanism called an Emergency Use Authorization (EUA). The EUA for this test is supported by the Technology Education Teacher of Health and Human Service's declaration that circumstances exist to justify the emergency use of in vitro diagnostics for the detection and/or diagnosis of the virus that causes COVID-19. This EUA will remain in effect for the duration of the COVID-19 declaration justifying emergency of IVDs, unless it is terminated or revoked by the FDA (after which the test may no longer be used). Performed By: #### C VDTBH ####[facility] Zedynxwcrv[address] [place] [address]Dr. Garima Pulliam PROF 14(COMP METB)on 023 Albumin [Mass/Vol] 3.6 g/dL Normal 3.4-5.0 [facility] Comment on above: Performed By: #### C MP, BNP, HSTROPN ####[facility] Ndsnbtefru23[address] [place] [address]Dr. Garima Pulliam Albumin/Globulin [Mass ratio] 1.5 {ratio} Normal [facility] Comment on above: Performed By: #### C MP, BNP, HSTROPN ####[facility] Rtgifxovst[address] [place], [place] [address]Dr. Garima Pulliam ALP [Catalytic activity/Vol] 79 U/L Normal 46-116 [facility] Comment on above: Performed By: #### C MP, BNP, HSTROPN ####[facility] Pjflsssydh[address] [place], [place] [address]Dr. Garima Pulliam ALT [Catalytic activity/Vol] 27 U/L Normal 16-63 [facility] Comment on above: Performed By: #### C MP, BNP, HSTROPN ####[facility] Ponsznbzlr30[address] [place] [address]Dr. Garima Pulliam Anion gap [Moles/Vol] 11.7 mmol/L Normal [facility] Comment on above: Performed By: #### C MP, BNP, HSTROPN ####[facility] Lvlpmddvya[address] [place], [place] [address]Dr. Garima Pulliam AST [Catalytic activity/Vol] 21 U/L Normal 15-37 [facility] Comment on above: Performed By: #### C MP, BNP, HSTROPN ####[facility] Qyemlinwkl8401 [place] [address]Dr. Garima Pulliam Bilirubin [Mass/Vol] 0.3 mg/dL Normal 0.2-1.0 [facility] Comment on above: Performed By: #### C MP, BNP, HSTROPN ####[facility] Ggsoawlbxj9173 [place] [address]Dr. Garima Pulliam Calcium [Mass/Vol] 8.9 mg/dL Normal 8.5-10.1 [facility] Comment on above: Performed By: #### C MP, BNP, HSTROPN ####[facility] Tpwogqioob4337 [place] [address]Dr. Garima Pulliam Chloride [Moles/Vol] 107 mmol/L Normal 98-107 [facility] Comment on above: Performed By: #### C MP, BNP, HSTROPN ####[facility] Ybzmnewpcn8833 [place] [address]Dr. Garima Pulliam CO2 [Moles/Vol] 26.0 mmol/L Normal 21.0-32.0 [facility] [place] Comment on above: Performed By: #### C MP, BNP, HSTROPN ####[facility] Ohgppnrwzc4[address] [place], [place] [address]Dr. Garima Pulliam Creatinine [Mass/Vol] 0.65 mg/dL Critically low 0.70-1.30 [facility] Comment on above: Performed By: #### C MP, BNP, HSTROPN ####[facility] Tuaifxztye[address] [place], [place] [address]Dr. Garima Pulliam EGFR-AF IRISH >60 Normal >=60 [facility] [place] Comment on above: Performed By: #### C MP, BNP, HSTROPN ####[facility] Izpumipmbu97[address] [place] [address]Dr. Garima Pulliam EGFR-NON AF IRISH >60 Normal >=60 [facility] Comment on above: Performed By: #### C MP, BNP, HSTROPN ####[facility] Ulerdpahex[address] [place], [place] [address]Dr. Garima Pulliam Globulin (S) [Mass/Vol] 2.4 g/dL Normal T [facility] Comment on above: Performed By: #### C MP, BNP, HSTROPN ####[facility] Iomctbkzux[address] [place], [place] [address]Dr. Garima Pulliam Glucose [Mass/Vol] 85 mg/dL Normal 74-106 [facility] Comment on above: Performed By: #### C MP, BNP, HSTROPN ####[facility] Zpmqfwrhuy5635 [place] [address]Dr. Garima Pulliam Potassium [Moles/Vol] 3.7 mmol/L Normal 3.5-5.1 [facility] Comment on above: Performed By: #### C MP, BNP, HSTROPN ####[facility] Rfnmolopew6733 [place] [address]Dr. Garima Pulliam Protein [Mass/Vol] 6.0 g/dL Critically low 6.4-8.2 [facility] Comment on above: Performed By: #### C MP, BNP, HSTROPN ####[facility] Rgdgqunjvp5396 [place] [address]Dr. Garima Pulliam Sodium [Moles/Vol] 141 mmol/L Normal 136-145 [facility] Comment on above: Performed By: #### C MP, BNP, HSTROPN ####[facility] Ljmekyikyi[address] [place], [place] [address]Dr. Garima Pulliam Urea nitrogen [Mass/Vol] 5.0 mg/dL Critically low 7.0-18. 0 [facility] Comment on above: Performed By: #### C MP, BNP, HSTROPN ####[facility] Mumequkgta[address] [place] [address]Dr. Garima Pulliam Urea nitrogen/Creatinine [Mass ratio] 7.7 mg/mg Normal [facility] Comment on above: Performed By: #### C MP, BNP, HSTROPN ####[facility] Whvjcanoba[address] [place], [place] [address]Dr. Garima Pulliam PROTIMEon 01-12-2023 INR Coag (PPP) [Relative time] 1.16 {INR} Normal [facility] Comment on above: Performed By: #### P TT, PT ####[facility] Xnxzzbbcyr[address] [place], [place] [address]Dr. Garima Pulliam INR GUIDELINES SEE BELOW Normal [facility] Comment on above: Result Comment: WESLEY RED INR: 2.0 - 3.0 CONDITIONS NOT LISTED BELOW 2.5 - 3.5 FOR PROSTHETIC HEART VALVE REPLACEMENT 2.5 - 3.5 RECURRENT THROMBOSIS Performed By: #### P TT, PT ####[facility] Onzqzwusqi[address] [place] [address]Dr. Chapisrenu Heraclio PT Coag (PPP) [Time] 12.2 s Critically high 9.0-11.6 [facility] Comment on above: Performed By: #### P TT, PT ####[facility] Socbpntdly97[address] [place] [address]DrAdalberto Pulliam PTTon 01-12-2023 aPTT Coag (Bld) [Time] 29.1 s Normal 22.3-36.2 Th [facility] Comment on above: Performed By: #### P TT, PT ####[facility] Wkiunjtnex[address] [place], [place] [address]DrAdalberto Chapisrenu Pulliam TROPONIN, HIGH SENSITIVITYon 01-12-2023 HSTROP 10.3 pg/mL Normal 4.0-76.1 The [facility] Comment on above: Result Comment: CUT- OFF POINTS HAVE BEEN ESTABLISHED BASED ON THE FOURTH UNIVERSAL DEFINITIONS OF MYOCARDIALINFARCTION. THE UPPER REFERENCE LIMIT (URL) OF TROPONIN, DEFINED THE 99TH PERCENTILE OFcTnI DISTRIBUTION IN A REFERENCE POPULATION, HAS BEEN CONFIRMED THE DECISION THRESHOLDFOR [place] DIAGNOSIS. Performed By: #### H STROPN ####[facility] C[address]rnrxpwo[address] [place], [place] [address]Dr. Garima Heraclio HSTROP 9.2 pg/mL Normal 4.0-76.1 [facility] Comment on above: Result Comment: CUT- OFF POINTS HAVE BEEN ESTABLISHED BASED ON THE FOURTH UNIVERSAL DEFINITIONS OF MYOCARDIALINFARCTION. THE UPPER REFERENCE LIMIT (URL) OF TROPONIN, DEFINED THE 99TH PERCENTILE OFcTnI DISTRIBUTION IN A REFERENCE POPULATION, HAS BEEN CONFIRMED THE DECISION THRESHOLDFOR [place] DIAGNOSIS. Performed By: #### C MP, BNP, HSTROPN ####[facility] H[address]oxqxtrs[address] [place], [place] [address]DrAdalberto Pulliam XR CHEST 1 Von 01-12-2023 XR CHEST 1 V Normal [facility] XR CHEST 1 Von 01-01-2023 XR CHEST 1 V Normal [facility] CARDIAC NASH 3-6on 3 CK [Catalytic activity/Vol] 196 U/L Normal 39-308 [facility] Comment on above: Performed By: #### C MREP ####[facility] Glpolvbyqr17[address] [place] [id number]. Garima Pulliam CK.MB [Mass/Vol] 7.41 ng/mL Critically high <=3.60 [facility] Comment on above: Performed By: #### C MREP ####[facility] Odorgheicj[address] [place], [place] [address]Dr. Garima Pulliam HSTROP 10.3 pg/mL Normal 4.0-76.1 [facility] ospital Comment on above: Result Comment: CUT- OFF POINTS HAVE BEEN ESTABLISHED BASED ON THE FOURTH UNIVERSAL DEFINITIONS OF MYOCARDIALINFARCTION. THE UPPER REFERENCE LIMIT (URL) OF TROPONIN, DEFINED THE 99TH PERCENTILE OFcTnI DISTRIBUTION IN A REFERENCE POPULATION, HAS BEEN CONFIRMED THE DECISION THRESHOLDFOR [place] DIAGNOSIS. Performed By: #### C MREP ####[facility] Euzmtordof[address] [place], [place] [address]Dr. Garima Pulliam XR CHEST 1 Von 12-26-2022 XR CHEST 1 V Normal [facility] BNPon 12-25-2022 Natriuretic peptide B (Bld) [Mass/Vol] 98.0 pg/mL Normal <=900.0 [facility] pital Comment on above: Performed By: #### B CYCLE DIRECTOR, BMP, CMADM ####[facility] Imbuhwtcfc[address] [place] [id number]. Garima Pulliam CARDIAC NASH ADMITon 023 CK [Catalytic activity/Vol] 208 U/L Normal 39-308 [facility] Comment on above: Performed By: #### B CYCLE DIRECTOR, BMP, CMADM ####[facility] Wzlcijhvxn39[address] [place] [id number]. Garima Pulliam CK.MB [Mass/Vol] 7.63 ng/mL Critically high <=3.60 [facility] Comment on above: Performed By: #### B CYCLE DIRECTOR, BMP, CMADM ####[facility] Etbpfdqrtc3[address] [place] [address]Dr. Garima Pulliam HSTROP 8.8 pg/mL Normal 4.0-76.1 [facility]spital Comment on above: Result Comment: CUT- OFF POINTS HAVE BEEN ESTABLISHED BASED ON THE FOURTH UNIVERSAL DEFINITIONS OF MYOCARDIALINFARCTION. THE UPPER REFERENCE LIMIT (URL) OF TROPONIN, DEFINED THE 99TH PERCENTILE OFcTnI DISTRIBUTION IN A REFERENCE POPULATION, HAS BEEN CONFIRMED THE DECISION THRESHOLDFOR [place] DIAGNOSIS. Performed By: #### B CYCLE DIRECTOR, BMP, CMADM ####[facility] [facility] [address] [place], [place] [address]Dr. Chapisrenu Pulliam DORIS 83 ng/mL Normal 16-96 [facility] ospital Comment on above: Performed By: #### B CYCLE DIRECTOR, BMP, CMADM ####[facility] Xqpttoiryx[address] [place], [place] [address]Dr. Garima Pulliam CBC AUTO DIFFon 12-25-2022 BASO # 0.0 103/ul Normal 0.0-0.1 [facility] o[facility]ital Comment on above: Performed By: #### C BC ####[facility] Qlmffjugzf[address] [place], [place] [address]Dr. Garima Pulliam Basophils/100 WBC (Bld) 0.0 % Critically low 0.2-2.0 [facility] Comment on above: Performed By: #### C BC ####[facility] Dsvyqvxrgj[address] [place], [place] [address]Dr. Garima Pulliam EO # 0.0 103/ul Normal 0.0-0.7 [facility]ital Comment on above: Performed By: #### C BC ####[facility] Ehqnjvc[address] [place], [place] [address]Dr. Garima Pulliam Eosinophils/100 WBC (Bld) 0.7 % Critically low 0.9-7. 0 [facility] Comment on above: Performed By: #### C BC ####[facility] T[address]dozfy[address] [place], [place] [address]Dr. Garima Pulliam Erythrocyte distribution wid th (RBC) [Ratio] 13.4 % Normal 11.0-15.0 The [facility] Comment on above: Performed By: #### C BC ####[facility] L[address]vbm[address]ds[address] [place], [place] [address]Dr. Garima Pulliam Hematocrit (Bld) [Volume fraction] 42.9 % Normal 4 2.0-54.0 [facility] Comment on above: Performed By: #### C BC ####[facility] Potldtcwit[address] [place], [place] [address]Dr. Garima Pulliam Hemoglobin (Bld) [Mass/Vol] 14.4 g/dL Normal 14.0-18. 0 [facility] Comment on above: Performed By: #### C BC ####[facility] E[address]iejoxec[address] [place], [place] [address]Dr. Garima Pulliam IG # 0.00 10e3/ul Normal 0.00-0.03 [facility] Comment on above: Performed By: #### C BC ####[facility] Bgrcgjlz[address] [place], [place] [address]Dr. Garima Pulliam IG % 0.0 % Normal 0.0-0.5 The [facility] Comment on above: Performed By: #### C BC ####[facility] S[address]oxpvoi[address] [place], [place] [address]Dr. Garima Pulliam LYMPH # 2.4 103/ul Normal 1.2-3.8 The [facility] Comment on above: Performed By: #### C BC ####[facility] Widmseykgm[address] [place], [place] [address]Dr. Garima Pulliam Lymphocytes/100 WBC (Bld) 29.2 % Normal 20.5-60.0 [facility] Comment on above: Performed By: #### C BC ####[facility] Mloxlyrg[address] [place], [place] [address]Dr. Garima Heraclio MANUAL DIFF REQ NO Normal The [facility] Comment on above: Performed By: #### C BC ####[facility] Occ[address]fyjduz[address] [place], [place] [address]Dr. Garima Pulliam MCH (RBC) [Entitic mass] 30.7 pg Normal 25.9-34.0 [facility] Comment on above: Performed By: #### C BC ####[facility] [address] [place] [address]Dr. Garima Pulliam MCHC (RBC) [Mass/Vol] 33.6 g/dL Normal 29.9-35.2 [facility] Comment on above: Performed By: #### C BC ####[facility] [address] [place] [address]Dr. Garima Pulliam MCV (RBC) [Entitic vol] 91.5 fL Normal 80.0-94.0 [facility] Comment on above: Performed By: #### C BC ####[facility] Knlsptkfcb[address] [place] [address]Dr. Garima Pulliam MONO # 0.0 103/ul Critically low 0.3-0.8 [facility] Comment on above: Performed By: #### C BC ####[facility] Wvuqedxpvf[address] [place] [address]Dr. Garima Pulliam Monocytes/100 WBC (Bld) 8.0 % Normal 1.7-12.0 [facility] Comment on above: Performed By: #### C BC ####[facility] Elhhzjxxvj[address] [place] [address]Dr. Garima Pulliam NEUT # 5.1 103/ul Normal 1.4-6.5 [facility] Comment on above: Performed By: #### C BC ####[facility] [address]tu[address] [place] [id number]. Garima Pulliam Neutrophils/100 WBC (Bld) 62.8 % Normal 43.0-75.0 [facility] Comment on above: Performed By: #### C BC ####[facility] Mr[address]jvgn[address] [place] [address]Dr. Garima Pulliam Platelet mean volume (Bld) [Entitic vol] 8.6 fL Critically low 9.5-13.5 The [facility] pital Comment on above: Performed By: #### C BC ####[facility] [address] [place], [place] [address]In. Garima Pulliam PLT 200 103/ul Normal 150-450 [facility]spital Comment on above: Performed By: #### C BC ####[facility] [address]rf[address] [place], [place] [address]Oc. Garima Pulliam RBC 4.69 106/ul Critically low 4.70-6.10 The [facility] Comment on above: Performed By: #### C BC ####[facility] Numjsmwjcg6920 [place], [place] [address]Iw. Garima Pulliam WBC 8.2 103/ul Normal 4.0-11.0 [facility] Comment on above: Performed By: #### C BC ####[facility] [address]dat9365 [place], [place] [address]Ho. Garima Pulliam Covid-19 PCR (CVDTBH)on SARS-CoV-2 (COVID-19) RNA MARIE+probe Ql (Unsp spec) Not detected Normal NOT DETECTED [facility] Comment on above: Result Comment: When diagnostic testing is negative, the possibility of a false negative should be considered inthe context of a patient's recent exposures and the presence of clinical signs and symptomsconsistent with SARS-CoV-2.This test is not yet approved or cleared by the [place] FDA. When there are no FDA-approved or cleared tests available, and other criteria are met, FDA can make tests available under an emergency access mechanism called an Emergency Use Authorization (EUA). The EUA for this test is supported by the Technology Education Teacher of Health and Human Service's declaration that circumstances exist to justify the emergency use of in vitro diagnostics for the detection and/or diagnosis of the virus that causes COVID-19. This EUA will remain in effect for the duration of the COVID-19 declaration justifying emergency of IVDs, unless it is terminated or revoked by the FDA (after which the test may no longer be used). Performed By: #### C VDTBH ####[facility] [address]40[address] [place], [place] [address]Sw. Garima Pulliam INFLUENZA A AND B AGon 12-25 [facility] SEE BELOW Normal [facility]ital Comment on above: Result Comment: Nega tive for Flu A protein angiten. Infection due to Flu A cannot be ruled out. Flu A angiten in the sample may be below the detection limit of the test. Performed By: #### I NFLUAB ####[facility] L[address]reaofz[address] [place], [place] [address]Dr. Garima Pulliam INFLUBNEGH SEE BELOW Normal [facility] Comment on above: Result Comment: Nega tive for Flu B protein antigen. Infection due to Flu B cannot be ruled out. Flu B antigen in the sample may be below the detection limit of the test. Performed By: #### I NFLUAB ####[facility] Tkrtusnpfl[address] [place], [place] [address]Dr. Garima Pulliam INFLUENZA A AG Negative Normal NEGATIVE SEE COMMENT [facility] Comment on above: Performed By: #### I NFLUAB ####[facility] Digkpbzjwe[address] [place], [place] [address]Dr. Garima Pulliam INFLUENZA B AG Negative Normal NEGATIVE SEE COMMENT [facility] Comment on above: Performed By: #### I NFLUAB ####[facility] Vjjkjernlj[address] [place], [place] [address]Dr. Garima Pulliam PROF CHEM 8 (BAS METB)on Anion gap [Moles/Vol] 11.1 mmol/L Normal [facility] Comment on above: Performed By: #### B CYCLE DIRECTOR, BMP, CMADM ####[facility] [address]qydsburcs[address] [place], [place] [address]Dr. Garima Pulliam Calcium [Mass/Vol] 8.5 mg/dL Normal 8.5-10.1 [facility] Comment on above: Performed By: #### B CYCLE DIRECTOR, BMP, CMADM ####[facility] X[address]ou[address] [place], [place] [address]Dr. Garima Pulliam Chloride [Moles/Vol] 106 mmol/L Normal 98-107 [facility] Comment on above: Performed By: #### B CYCLE DIRECTOR, BMP, CMADM ####[facility] Dq[address]cb[address]yuyi[address] [place] [id number]. Garima Pulliam CO2 [Moles/Vol] 27.4 mmol/L Normal 21.0-32.0 The [facility] Comment on above: Performed By: #### B CYCLE DIRECTOR, BMP, CMADM ####[facility] Yessqdtbwt39[address] [place] [phone]. Garima Pulliam Creatinine [Mass/Vol] 0.65 mg/dL Critically low 0.70-1.30 [facility] Comment on above: Performed By: #### B CYCLE DIRECTOR, BMP, CMADM ####[facility] [address]thke[address] [place] [address]Dr. Garima Pulliam EGFR-AF IRISH >60 Normal >=60 The [facility] Comment on above: Performed By: #### B CYCLE DIRECTOR, BMP, CMADM ####[facility] C[address]ou[address]uc[address] [place] [address]Dr. Garima Pulliam EGFR-NON AF IRISH >60 Normal >=60 [facility] Comment on above: Performed By: #### B CYCLE DIRECTOR, BMP, CMADM ####[facility] B[address]xjafhw[address] [place] [address]Dr. Garima Pulliam Glucose [Mass/Vol] 140 mg/dL Critically high 74-106 [facility] Comment on above: Performed By: #### B CYCLE DIRECTOR, BMP, CMADM ####[facility] Yubrcozkih5937 [place] [address]Dr. Garima Pulliam Potassium [Moles/Vol] 3.5 mmol/L Normal 3.5-5.1 [facility] Comment on above: Performed By: #### B CYCLE DIRECTOR, BMP, CMADM ####[facility] H[address]szopvmh2949 [place] [address]Dr. Garima Pulliam Sodium [Moles/Vol] 141 mmol/L Normal 136-145 [facility] Comment on above: Performed By: #### B CYCLE DIRECTOR, BMP, CMADM ####[facility] Yevmczsrrc0244 [place] [address]Dr. Garima Pulliam Urea nitrogen [Mass/Vol] 8.0 mg/dL Normal 7.0-18.0 [facility] Comment on above: Performed By: #### B MANOLO, MARVIN, NANCY ####[facility] [address]rumaau4[address] [place] [address]Dr. Garima Pulliam Urea nitrogen/Creatinine [Mass ratio] 12.3 mg/mg Normal [facility] Comment on above: Performed By: #### B CYCLE DIRECTOR, MARVIN, NANCY ####[facility] Hprqxjqnil1246 [place] [address]Dr. Garima Pulliam CARDIAC NASH ADMITon 023 CK [Catalytic activity/Vol] 165 U/L Normal 39-308 [facility] Comment on above: Performed By: #### B NANCY EHRNANDEZ ####[facility] [address] [place], [place] [address]Dr. Garima Pulliam CK.MB [Mass/Vol] 6.48 ng/mL Critically high <=3.60 [facility] Comment on above: Performed By: #### B NANCY HERNANDEZ ####[facility] [address] [place], [place] [address]Dr. Garima Pulliam HSTROP 11.7 pg/mL Normal 4.0-76.1 [facility] Comment on above: Result Comment: CUT- OFF POINTS HAVE BEEN ESTABLISHED BASED ON THE FOURTH UNIVERSAL DEFINITIONS OF MYOCARDIALINFARCTION. THE UPPER REFERENCE LIMIT (URL) OF TROPONIN, DEFINED THE 99TH PERCENTILE OFcTnI DISTRIBUTION IN A REFERENCE POPULATION, HAS BEEN CONFIRMED THE DECISION THRESHOLDFOR [place] DIAGNOSIS. Performed By: #### B NANCY HERNANDEZ ####[facility] V[address] [place], [place] [address]Dr. Garima Pulliam DORIS 83 ng/mL Normal 16-96 [facility] Comment on above: Performed By: #### B NANCY HERNANDEZ ####[facility] [address] [place], [place] [address]Dr. Garima Pulliam CBC AUTO DIFFon 12-10-2022 BASO # 0.0 103/ul Normal 0.0-0.1 [facility] Comment on above: Performed By: #### C BC ####[facility] R[address] [place], [place] [address]Dr. Garima Pulliam Basophils/100 WBC (Bld) 0.3 % Normal 0.2-2.0 [facility] Comment on above: Performed By: #### C BC ####[facility] W[address]wbqrrvpd7062 [place] [address]Dr. Garima Pulliam EO # 0.1 103/ul Normal 0.0-0.7 [facility] Comment on above: Performed By: #### C BC ####[facility] Ijawlckswd4708 [place] [address]Dr. Garima Pulliam Eosinophils/100 WBC (Bld) 0.4 % Critically low 0.9-7. 0 [facility] Comment on above: Performed By: #### C BC ####[facility] Cviymrjtnp8429 [place] [address]Dr. Garima Pulliam Erythrocyte distribution wid th (RBC) [Ratio] 13.2 % Normal 11.0-15.0 The [facility] Comment on above: Performed By: #### C BC ####[facility] Unuoqhoyez70[address] [place] [address]Dr. Garima Pulliam Hematocrit (Bld) [Volume fraction] 42.4 % Normal 4 2.0-54.0 [facility] Comment on above: Performed By: #### C BC ####[facility] Vzruhoegwx7741 [place] [address]Dr. Garima Pulliam Hemoglobin (Bld) [Mass/Vol] 14.4 g/dL Normal 14.0-18. 0 [facility] Comment on above: Performed By: #### C BC ####[facility] Vkpcbysxgx2137 [place] [address]Dr. Garima Pulliam IG # 0.05 10e3/ul Critically high 0.00-0.03 The [facility] Comment on above: Performed By: #### C BC ####[facility] Cmheslbark9091 [place] [id number]. Garima Pulliam IG % 0.4 % Normal 0.0-0.5 The [facility] Comment on above: Performed By: #### C BC ####[facility] Raqgpvkiwz4632 [place] [phone]. Chapisrenu Heraclio LYMPH # 0.8 103/ul Critically low 1.2-3.8 [facility] Comment on above: Performed By: #### C BC ####[facility] Rrrjjpheki9361 [place] [phone]. Garima Pulliam Lymphocytes/100 WBC (Bld) 6.5 % Critically low 20.5-6 0.0 [facility] Comment on above: Performed By: #### C BC ####[facility] Rxmpssxjde2853 [place] [phone]. Garima Pulliam MANUAL DIFF REQ NO Normal [facility] Comment on above: Performed By: #### C BC ####[facility] Xpyuepqjnb1734 [place] [phone]. Garima Pulliam MCH (RBC) [Entitic mass] 30.5 pg Normal 25.9-34.0 [facility] Comment on above: Performed By: #### C BC ####[facility] Hkopevhxou8953 [place] [phone]. Garima Pulliam MCHC (RBC) [Mass/Vol] 34.0 g/dL Normal 29.9-35.2 [facility] Comment on above: Performed By: #### C BC ####[facility] Cdlnmrdjkk3051 [place] [phone]. Garima Pulliam MCV (RBC) [Entitic vol] 89.8 fL Normal 80.0-94.0 [facility] Comment on above: Performed By: #### C BC ####[facility] Ibsnfuudjp9111 [place] [phone]. Garima Pulliam MONO # 0.2 103/ul Critically low 0.3-0.8 [facility] Comment on above: Performed By: #### C BC ####[facility] Abvcatrcna7231 [place] [phone]. Garima Pulliam Monocytes/100 WBC (Bld) 2.0 % Normal 1.7-12.0 [facility] Comment on above: Performed By: #### C BC ####[facility] Jgejsixnxd0861 [place] [phone]. Garima Pulliam NEUT # 10.5 103/ul Critically high 1.4-6.5 The [facility] Comment on above: Performed By: #### C BC ####[facility] Kqbtcwuieq4049 [place] [phone]. Garima Pulliam Neutrophils/100 WBC (Bld) 90.4 % Critically high 43.0- 75.0 [facility] Comment on above: Performed By: #### C BC ####[facility] Radpskvxki0826 [place] [phone]. Garima Pulliam Platelet mean volume (Bld) [Entitic vol] 9.4 fL Critically low 9.5-13.5 The [facility] Comment on above: Performed By: #### C BC ####[facility] Zhoapoimfc5509 [place] [address]Dr. Garima Pulliam PLT 198 103/ul Normal 150-450 [facility] Comment on above: Performed By: #### C BC ####[facility] [address] [place], [place] [address]Dr. Garima Pulliam RBC 4.72 106/ul Normal 4.70-6.10 [facility] Comment on above: Performed By: #### C BC ####[facility] Ubawthafbv1970 [place] [phone]. Garima Pulliam WBC 11.6 103/ul Critically high 4.0-11.0 The [facility] Comment on above: Performed By: #### C BC ####[facility] Fetbjnylaf9440 [place] [phone]. Garima Pulliam PROF CHEM 8 (BAS METB)on Anion gap [Moles/Vol] 11.3 mmol/L Normal [facility] Comment on above: Performed By: #### B MP, CMADM ####[facility] Ixcwubiwlm5029 [place] [phone]. Garima Pulliam Calcium [Mass/Vol] 8.9 mg/dL Normal 8.5-10.1 [facility] Comment on above: Performed By: #### B DAVID, CMADM ####[facility] Xclcgrqejn9283 [place] [address]Dr. Garima Pulliam Chloride [Moles/Vol] 103 mmol/L Normal 98-107 [facility] Comment on above: Performed By: #### B DAVID, CMADM ####[facility] Rkhxnjbkuu6779 [place] [address]Dr. Garima Pulliam CO2 [Moles/Vol] 28.2 mmol/L Normal 21.0-32.0 [facility] [place] Comment on above: Performed By: #### B DAVID, CMADM ####[facility] [address]ildrkbt[address] [place], [place] [address]Dr. Garima Pulliam Creatinine [Mass/Vol] 0.60 mg/dL Critically low 0.70-1.30 [facility] Comment on above: Performed By: #### B DAVID, CMADM ####[facility] [address]qjeqmeak[address] [place], [place] [address]Dr. Garima Pulliam EGFR-AF IRISH >60 Normal >=60 [facility] [place] Comment on above: Performed By: #### B DAVID, CMAANA ROSA ####[facility] By[address]bvsizh[address] [place], [place] [address]Dr. Garima Pulliam EGFR-NON AF IRISH >60 Normal >=60 [facility] Comment on above: Performed By: #### B DAVID, CMADM ####[facility] Pgmwirccty9764 [place] [address]Dr. Garima Pulliam Glucose [Mass/Vol] 166 mg/dL Critically high 74-106 [facility] Comment on above: Performed By: #### B DAVID, CMADM ####[facility] Vrdycetedd4720 [place] [address]Dr. Garima Pulliam Potassium [Moles/Vol] 3.5 mmol/L Normal 3.5-5.1 [facility] Comment on above: Performed By: #### B DAVID, CMADM ####[facility] Mllmoadrfg0[address] [place], [place] [address]Dr. Garima Pulliam Sodium [Moles/Vol] 139 mmol/L Normal 136-145 [facility] Comment on above: Performed By: #### B NANCY HERNANDEZ ####[facility] Hcaufycvva7378 [place] [address]Dr. Garima Pulliam Urea nitrogen [Mass/Vol] 9.0 mg/dL Normal 7.0-18.0 [facility] Comment on above: Performed By: #### B NANCY HERNANDEZ ####[facility] Gbjdvrdgws[address] [place], [place] [address]Dr. Garima Pulliam Urea nitrogen/Creatinine [Mass ratio] 15.0 mg/mg Normal [facility] Comment on above: Performed By: #### B NANCY HERNANDEZ ####[facility] Bcndifbihp[address] [place], [place] [address]Dr. Garima Pulliam XR CHEST 1 Von 12-10-2022 XR CHEST 1 V Normal [facility] BNPon 11-27-2022 Natriuretic peptide B (Bld) [Mass/Vol] 95.0 pg/mL Normal <=900.0 The [facility] pital Comment on above: Performed By: #### C DAVID, HSTROPN, BNP ####[facility] P[address]klzprfv[address] [place], [place] [address]Dr. Garima Pulliam CBC AUTO DIFFon 11-27-2022 BASO # 0.0 103/ul Normal 0.0-0.1 [facility] Comment on above: Performed By: #### C BC ####[facility] Xwxpjbpxpy[address] [place], [place] [address]Dr. Garima Pulliam Basophils/100 WBC (Bld) 0.2 % Normal 0.2-2.0 [facility] Comment on above: Performed By: #### C BC ####[facility] Kxfzhmahdr[address] [place], [place] [address]Dr. Garima Pulliam EO # 0.2 103/ul Normal 0.0-0.7 [facility] Comment on above: Performed By: #### C BC ####[facility] Bmypzkdpra[address] [place], [place] [address]Dr. Garima Pulliam Eosinophils/100 WBC (Bld) 2.0 % Normal 0.9-7.0 [facility] Comment on above: Performed By: #### C BC ####[facility] Ufsgvpmycm8936 [place] [address]Dr. Garima Pulliam Erythrocyte distribution wid th (RBC) [Ratio] 13.2 % Normal 11.0-15.0 [facility] Comment [facility] above: Performed By: #### C BC ####[facility] Qaegiabtfg[address] [place], [place] [address]Dr. Garima Pulliam Hematocrit (Bld) [Volume fraction] 42.4 % Normal 4 2.0-54.0 [facility] Comment on above: Performed By: #### C BC ####[facility] Etpzbrjrxs[address] [place], [place] [address]Dr. Garima Pulliam Hemoglobin (Bld) [Mass/Vol] 14.4 g/dL Normal 14.0-18. 0 [facility] Comment on above: Performed By: #### C BC ####[facility] J[address]dfhykxzl[address] [place], [place] [address]Dr. Garima Pulliam IG # 0.04 10e3/ul Critically high 0.00-0.03 [facility] Comment on above: Performed By: #### C BC ####[facility] Zwgdypximt[address] [place], [place] [address]Dr. Garima Pulliam IG % 0.4 % Normal 0.0-0.5 [facility]spital Comment on above: Performed By: #### C BC ####[facility] Xeufxbwojd[address] [place], [place] [address]Dr. Garima Pulliam LYMPH # 2.2 103/ul Normal 1.2-3.8 [facility] Comment on above: Performed By: #### C BC ####[facility] Pbvpvmgtzx[address] [place], [place] [address]Dr. Garima Pulliam Lymphocytes/100 WBC (Bld) 21.5 % Normal 20.5-60.0 [facility] Comment on above: Performed By: #### C BC ####[facility] [address] [place], [place] [address]Dr. Chapisrenu Pulliam MANUAL DIFF REQ NO Normal The [facility] Comment on above: Performed By: #### C BC ####[facility] Nfqvzwkaws6854 [place] [address]Dr. Garima Pulliam MCH (RBC) [Entitic mass] 30.4 pg Normal 25.9-34.0 [facility] Comment on above: Performed By: #### C BC ####[facility] Ikfqlaycvb0[address] [place], [place] [address]Dr. Garima Pulliam MCHC (RBC) [Mass/Vol] 34.0 g/dL Normal 29.9-35.2 [facility] Comment on above: Performed By: #### C BC ####[facility] W[address]jjmiwkt[address] [place], [place] [address]Dr. Garima Heraclio MCV (RBC) [Entitic vol] 89.6 fL Normal 80.0-94.0 [facility] Comment on above: Performed By: #### C BC ####[facility] Qopsboqpoa[address] [place], [place] [address]Dr. Chapisrenu Pulliam MONO # 0.8 103/ul Normal 0.3-0.8 The [facility] Comment on above: Performed By: #### C BC ####[facility] Dhovznuulp[address] [place], [place] [address]Dr. Chapisrenu Pulliam Monocytes/100 WBC (Bld) 7.7 % Normal 1.7-12.0 [facility] Comment on above: Performed By: #### C BC ####[facility] Wplpsringy[address] [place], [place] [address]Dr. Garima Pulliam NEUT # 7.0 103/ul Critically high 1.4-6.5 The [facility] Comment on above: Performed By: #### C BC ####[facility] Xfuevqxamb[address] [place], [place] [address]Dr. Garima Pulliam Neutrophils/100 WBC (Bld) 68.2 % Normal 43.0-75.0 [facility] Comment on above: Performed By: #### C BC ####[facility] Loawqvzhor3444 [place] [address]Dr. Garima Pulliam Platelet mean volume (Bld) [Entitic vol] 8.9 fL Critically low 9.5-13.5 The [facility] Comment on above: Performed By: #### C BC ####[facility] Yhgbbbynbj1259 [place] [address]Dr. Garima Pulliam PLT 222 103/ul Normal 150-450 [facility]ital Comment on above: Performed By: #### C BC ####[facility] [address]dnjprsb[address] [place], [place] [address]Dr. Garima Pulliam RBC 4.73 106/ul Normal 4.70-6.10 [facility] Comment on above: Performed By: #### C BC ####[facility] [address]tkurjcxd[address] [place], [place] [address]Dr. Garima Pulliam WBC 10.3 103/ul Normal 4.0-11.0 [facility] Comment on above: Performed By: #### C BC ####[facility] Tjtbdcfukq[address] [place], [place] [address]Dr. Garima Pulliam PROF 14(COMP METB)on 023 Albumin [Mass/Vol] 3.7 g/dL Normal 3.4-5.0 [facility] Comment on above: Performed By: #### C MP, HSTROPN, BNP ####[facility] [address]ofaxgxz[address] [place], [place] [address]Dr. Garima Pulliam Albumin/Globulin [Mass ratio] 1.5 {ratio} Normal [facility] Comment on above: Performed By: #### C MP, HSTROPN, BNP ####[facility] Vokadhbgdg6596 [place] [address]Dr. Garima Pulliam ALP [Catalytic activity/Vol] 79 U/L Normal 46-116 [facility] Comment on above: Performed By: #### C MP, HSTROPN, BNP ####[facility] Cjyhpxquhv7505 [place] [address]Dr. Garima Pulliam ALT [Catalytic activity/Vol] 32 U/L Normal 16-63 [facility] Comment on above: Performed By: #### C MP, HSTROPN, BNP ####[facility] Rzdtvsizfq3861 [place] [address]Dr. Garima Pulliam Anion gap [Moles/Vol] 9.5 mmol/L Normal [facility] Comment on above: Performed By: #### C MP, HSTROPN, BNP ####[facility] Xijzgfowgz[address] [place] [address]Dr. Garima Pulliam AST [Catalytic activity/Vol] 25 U/L Normal 15-37 [facility] Comment on above: Performed By: #### C MP, HSTROPN, BNP ####[facility] Jcsyxtiuer[address] [place], [place] [address]Dr. Garima Pulliam Bilirubin [Mass/Vol] 0.4 mg/dL Normal 0.2-1.0 [facility] Comment on above: Performed By: #### C MP, HSTROPN, BNP ####[facility] Khgeimgphb[address] [place], [place] [address]Dr. Garima Pulliam Calcium [Mass/Vol] 8.9 mg/dL Normal 8.5-10.1 [facility] Comment on above: Performed By: #### C MP, HSTROPN, BNP ####[facility] Zyukfyycqi[address] [place], [place] [address]Dr. Garima Pulliam Chloride [Moles/Vol] 103 mmol/L Normal 98-107 [facility] Comment on above: Performed By: #### C MP, HSTROPN, BNP ####[facility] Z[address]csiwem[address] [place], [place] [address]Dr. Garima Pulliam CO2 [Moles/Vol] 28.6 mmol/L Normal 21.0-32.0 The [facility] Comment on above: Performed By: #### C MP, HSTROPN, BNP ####[facility] Dsrgpmcdgq[address] [place], [place] [address]Dr. Garima Pulliam Creatinine [Mass/Vol] 0.72 mg/dL Normal 0.70-1.30 [facility] Comment on above: Performed By: #### C MP, HSTROPN, BNP ####[facility] Gpwzbsfhbz59[address] [place] [address]Dr. Garima Pulliam EGFR-AF IRISH >60 Normal >=60 [facility] [place] Comment on above: Performed By: #### C MP, HSTROPN, BNP ####[facility] Ulqgciuqww2085 [place] [address]Dr. Garima Pulliam EGFR-NON AF IRISH >60 Normal >=60 [facility] Comment on above: Performed By: #### C MP, HSTROPN, BNP ####[facility] Iszmjnpfwk3511 [place] [address]Dr. Garima Pulliam Globulin (S) [Mass/Vol] 2.5 g/dL Normal [facility] Comment on above: Performed By: #### C MP, HSTROPN, BNP ####[facility] Ngtvgadicr2098 [place] [address]Dr. Garima Pulliam Glucose [Mass/Vol] 114 mg/dL Critically high 74-106 [facility] Comment on above: Performed By: #### C MP, HSTROPN, BNP ####[facility] Hgtfvmmuis7177 [place] [address]Dr. Garima Pulliam Potassium [Moles/Vol] 4.1 mmol/L Normal 3.5-5.1 [facility] Comment on above: Performed By: #### C MP, HSTROPN, BNP ####[facility] Fluxbrzwbv5390 [place] [address]Dr. Garima Pulliam Protein [Mass/Vol] 6.2 g/dL Critically low 6.4-8.2 [facility] Comment on above: Performed By: #### C MP, HSTROPN, BNP ####[facility] Xxxvablzba3204 [place] [address]Dr. Garima Pulliam Sodium [Moles/Vol] 137 mmol/L Normal 136-145 [facility] Comment on above: Performed By: #### C MP, HSTROPN, BNP ####[facility] Xakewlvggw7370 [place] [address]Dr. Garima Pulliam Urea nitrogen [Mass/Vol] 13.0 mg/dL Normal 7.0-18.0 [facility] Comment on above: Performed By: #### C MP, HSTROPN, BNP ####[facility] Jxljjrdcpa2772 [place] [address]Dr. Garima Pulliam Urea nitrogen/Creatinine [Mass ratio] 18.1 mg/mg Normal [facility] Comment on above: Performed By: #### C MP, HSTROPN, BNP ####[facility] Hfhrccfoct0972 [place] [address]Dr. Garima Pulliam TROPONIN, HIGH SENSITIVITYon 11-27-2022 HSTROP 11.8 pg/mL Normal 4.0-76.1 The [facility] Comment on above: Result Comment: CUT- OFF POINTS HAVE BEEN ESTABLISHED BASED ON THE FOURTH UNIVERSAL DEFINITIONS OF MYOCARDIALINFARCTION. THE UPPER REFERENCE LIMIT (URL) OF TROPONIN, DEFINED THE 99TH PERCENTILE OFcTnI DISTRIBUTION IN A REFERENCE POPULATION, HAS BEEN CONFIRMED THE DECISION THRESHOLDFOR [place] DIAGNOSIS. Performed By: #### C MP, HSTROPN, BNP ####[facility] Vvzniyteyh5[address] [place] [address]Dr. Garima Pulliam XR CHEST 1 Von 11-27-2022 XR CHEST 1 V Normal [facility] BNPon 11-20-2022 Natriuretic peptide B (Bld) [Mass/Vol] 73.0 pg/mL Normal <=900.0 The [facility] pital Comment on above: Performed By: #### B MP, HSTROPN, BNP ####[facility] Npmyloogqu8763 [place] [address]Dr. Garima Pulliam CBC AUTO DIFFon 11-20-2022 BASO # 0.0 103/ul Normal 0.0-0.1 The [facility] Comment on above: Performed By: #### C BC ####[facility] Mprqszbzit0819 [place] [address]Dr. Garima Heraclio Basophils/100 WBC (Bld) 0.3 % Normal 0.2-2.0 [facility] Comment on above: Performed By: #### C BC ####[facility] Yiosrglrse9[address] [place] [id number]. Garima Pulliam EO # 0.2 103/ul Normal 0.0-0.7 The [facility] ospital Comment on above: Performed By: #### C BC ####[facility] Nyfvqjabfy[address] [place], [place] [address]Dr. Garima Pulliam Eosinophils/100 WBC (Bld) 2.1 % Normal 0.9-7.0 [facility] Comment on above: Performed By: #### C BC ####[facility] Ktuluvcxiu[address] [place], [place] [address]Dr. Garima Pulliam Erythrocyte distribution wid th (RBC) [Ratio] 13.2 % Normal 11.0-15.0 The [facility] Comment on above: Performed By: #### C BC ####[facility] Ijgdxtmlnz[address] [place], [place] [address]Dr. Chapisrenu Pulliam Hematocrit (Bld) [Volume fraction] 43.4 % Normal 4 2.0-54.0 [facility] Comment on above: Performed By: #### C BC ####[facility] Cyxxpgnyaf18[address] [place], [place] [address]Dr. Garima Pulliam Hemoglobin (Bld) [Mass/Vol] 14.6 g/dL Normal 14.0-18. 0 [facility] Comment on above: Performed By: #### C BC ####[facility] Wbrisnutja[address] [place], [place] [address]Dr. Chapisrenu Pulliam IG # 0.02 10e3/ul Normal 0.00-0.03 [facility] Comment on above: Performed By: #### C BC ####[facility] Cmavtrdaqa[address] [place], [place] [address]Dr. Chapisrenu Pulliam IG % 0.2 % Normal 0.0-0.5 [facility] Comment on above: Performed By: #### C BC ####[facility] Idlhxzklpv2[address] [place], [place] [address]Dr. Garima Pulliam LYMPH # 2.1 103/ul Normal 1.2-3.8 The [facility] Comment on above: Performed By: #### C BC ####[facility] Kdqfjewxcu6867 [place] [id number]. Garima Pulliam Lymphocytes/100 WBC (Bld) 19.2 % Critically low 20.5-6 0.0 [facility] Comment on above: Performed By: #### C BC ####[facility] Okajpxalwv9504 [place] [id number]. Garima Pulliam MANUAL DIFF REQ NO Normal [facility] Comment on above: Performed By: #### C BC ####[facility] Kraxpakwvs2567 [place] [id number]. Garima Pulliam MCH (RBC) [Entitic mass] 30.4 pg Normal 25.9-34.0 [facility] Comment on above: Performed By: #### C BC ####[facility] Inycaaqxfo[address] [place], [place] [address]Dr. Garima Pulliam MCHC (RBC) [Mass/Vol] 33.6 g/dL Normal 29.9-35.2 [facility] Comment on above: Performed By: #### C BC ####[facility] Hiogndmoki[address] [place], [place] [address]Dr. Garima Pulliam MCV (RBC) [Entitic vol] 90.4 fL Normal 80.0-94.0 [facility] Comment on above: Performed By: #### C BC ####[facility] Citxghuitz[address] [place], [place] [address]Dr. Garima Pulliam MONO # 0.6 103/ul Normal 0.3-0.8 [facility] Comment on above: Performed By: #### C BC ####[facility] Hgqvgacowp[address] [place], [place] [address]Dr. Garima Pulliam Monocytes/100 WBC (Bld) 5.8 % Normal 1.7-12.0 [facility] Comment on above: Performed By: #### C BC ####[facility] Eduhyccyfb[address] [place], [place] [address]Dr. Garima Pulliam NEUT # 7.8 103/ul Critically high 1.4-6.5 [facility] Comment on above: Performed By: #### C BC ####[facility] Egxqeisand8092 [place], [place] [address]Bp. Garima Pulliam Neutrophils/100 WBC (Bld) 72.4 % Normal 43.0-75.0 [facility] Comment on above: Performed By: #### C BC ####[facility] Ztqnmaxrsx5256 [place], [place] [address]Yd. Garima Pulliam Platelet mean volume (Bld) [Entitic vol] 8.7 fL Critically low 9.5-13.5 The [facility] Comment on above: Performed By: #### C BC ####[facility] Zoozzyrdah2032 [place], [place] [address]Dy. Garima Pulliam PLT 184 103/ul Normal 150-450 [facility] ospital Comment on above: Performed By: #### C BC ####[facility] Ccxfheijdi4475 [place] [id number]. Garima Pulliam RBC 4.80 106/ul Normal 4.70-6.10 [facility] Comment on above: Performed By: #### C BC ####[facility] Ctrfxarabc0166 [place], [place] [address]Rg. Garima Pulliam WBC 10.8 103/ul Normal 4.0-11.0 [facility] Comment on above: Performed By: #### C BC ####[facility] Akzgajpiiv9634 [place], [place] [address]Sc. Garima Pulliam [facility]-24 SARS-CoV-2 (COVID-19) RNA MARIE+probe Ql (Unsp spec) Not detected Normal NOT DETECTED [facility] Comment on above: Result Comment: When diagnostic testing is negative, the possibility of a false negative should be considered inthe context of a patient's recent exposures and the presence of clinical signs and symptomsconsistent with SARS-CoV-2.This test is not yet approved or cleared by the [place] FDA. When there are no FDA-approved or cleared tests available, and other criteria are met, FDA can make tests available under an emergency access mechanism called an Emergency Use Authorization (EUA). The EUA for this test is supported by the [place] of Health and Human Service's declaration that circumstances exist to justify the emergency use of in vitro diagnostics for the detection and/or diagnosis of the virus that causes COVID-19. This EUA will remain in effect for the duration of the COVID-19 declaration justifying emergency of IVDs, unless it is terminated or revoked by the FDA (after which the test may no longer be used). Performed By: #### C VDTBH ####[address] Garima Pulliam INFLUENZA A AND B AGon 11-20 INFLUANE SEE BELOW Normal [facility] Comment on above: Result Comment: Nega tive for Flu A protein angiten. Infection due to Flu A cannot be ruled out. Flu A angiten in the sample may be below the detection limit of the test. Performed By: #### I NFLUAB ####[place] [address]Dr. Garima Pulliam INFLUBNEG SEE BELOW Normal [facility] Comment on above: Result Comment: Nega tive for Flu B protein antigen. Infection due to Flu B cannot be ruled out. Flu B antigen in the sample may be below the detection limit of the test. Performed By: #### I NFLUAB ####[place] [address]Dr. renu [facility] INFLUENZA A AG Negative Normal NEGATIVE SEE COMMENT [facility] Comment on above: Performed By: #### I NFLUAB ####[facility] Hxixeleexw[address] [place], [place] [address]Dr. renu [facility] INFLUENZA B AG Negative Normal NEGATIVE SEE COMMENT [facility] Comment on above: Performed By: #### I NFLUAB ####[facility] [address] [place] [address]. renu Pulliam PROF CHEM 8 (BAS METB)on Anion gap [Moles/Vol] 8.2 mmol/L Normal [facility] Comment on above: Performed By: #### B MP, HSTROPN, BNP ####[facility] Zqcdosycag9220 [place] [address]Dr. Garima Pulliam Calcium [Mass/Vol] 8.7 mg/dL Normal 8.5-10.1 [facility] Comment on above: Performed By: #### B MP, HSTROPN, BNP ####[facility] Gmjpfymoqp9553 [place] [address]Dr. Garima Pulliam Chloride [Moles/Vol] 103 mmol/L Normal 98-107 [facility] Comment on above: Performed By: #### B MP, HSTROPN, BNP ####[facility] Ioucpimory0649 [place] [address]Dr. Garima Pulliam CO2 [Moles/Vol] 29.4 mmol/L Normal 21.0-32.0 [facility] [place] Comment on above: Performed By: #### B MP, HSTROPN, BNP ####[facility] Xzqgkkomih5493 [place] [address]Dr. Garima Pulliam Creatinine [Mass/Vol] 0.69 mg/dL Critically low 0.70-1.30 [facility] Comment on above: Performed By: #### B MP, HSTROPN, BNP ####[facility] Hwpoxxzonl[address] [place], [place] [address]Dr. Garima Pulliam EGFR-AF IRISH >60 Normal >=60 [facility] [place] Comment on above: Performed By: #### B MP, HSTROPN, BNP ####[facility] Qwknlermci[address] [place], [place] [address]Dr. Garima Pulliam EGFR-NON AF IRISH >60 Normal >=60 [facility] Comment on above: Performed By: #### B MP, HSTROPN, BNP ####[facility] Jcwoxkroir6953 [place] [address]Dr. Garima Pulliam Glucose [Mass/Vol] 209 mg/dL Critically high 74-106 [facility] Comment on above: Performed By: #### B MP, HSTROPN, BNP ####[facility] Giyspbsdwr2446 [place] [address]Dr. Garima Pulliam Potassium [Moles/Vol] 3.6 mmol/L Normal 3.5-5.1 [facility] Comment on above: Performed By: #### B MP, HSTROPN, BNP ####[facility] Zagoaszqkr5855 [place] [address]Dr. Garima Pulliam Sodium [Moles/Vol] 137 mmol/L Normal 136-145 The [facility] Comment on above: Performed By: #### B MP, HSTROPN, BNP ####[facility] Mpolddmyqf1777 [place] [address]Dr. Garima Pulliam Urea nitrogen [Mass/Vol] 11.0 mg/dL Normal 7.0-18.0 [facility] Comment on above: Performed By: #### B MP, HSTROPN, BNP ####[facility] Ublmroevhc1674 [place] [address]Dr. Garima Pulliam Urea nitrogen/Creatinine [Mass ratio] 15.9 mg/mg Normal [facility] Comment on above: Performed By: #### B MP, HSTROPN, BNP ####[facility] Gnnjmmjuru2255 [place] [address]Dr. Garima Pulliam TROPONIN, HIGH SENSITIVITYon 11-20-2022 HSTROP 8.7 pg/mL Normal 4.0-76.1 The [facility] Comment on above: Result Comment: CUT- OFF POINTS HAVE BEEN ESTABLISHED BASED ON THE FOURTH UNIVERSAL DEFINITIONS OF MYOCARDIALINFARCTION. THE UPPER REFERENCE LIMIT (URL) OF TROPONIN, DEFINED THE 99TH PERCENTILE OFcTnI DISTRIBUTION IN A REFERENCE POPULATION, HAS BEEN CONFIRMED THE DECISION THRESHOLDFOR [place] DIAGNOSIS. Performed By: #### B MP, HSTROPN, BNP ####[facility] Fswqglaumu8984 [place] [address]Dr. Garima Pulliam XR CHEST 1 Von 11-20-2022 XR CHEST 1 V Normal [facility] XR CHEST 1 Von 10-02-2022 XR CHEST 1 V Normal [facility] BNPon 09-29-2022 Natriuretic peptide B (Bld) [Mass/Vol] 107.0 pg/mL Normal <=900.0 The [facility] pital Comment on above: Performed By: #### C MP, BNP, CMADM ####[facility] Altnhvlbhv2052 [place] [address]Dr. aGrima Pulliam CARDIAC NASH ADMITon 022 CK [Catalytic activity/Vol] 190 U/L Normal 39-308 [facility] Comment on above: Performed By: #### C MP, BNP, CMADM ####[facility] Wnblovsedr8889 [place] [address]Dr. Garima Pulliam CK.MB [Mass/Vol] 11.11 ng/mL Critically high <=3.60 Th [facility] Comment on above: Performed By: #### C MP, BNP, CMADM ####[facility] Mrihyaqzak[address] [place], [place] [address]Dr. Garima Pulliam HSTROP 11.8 pg/mL Normal 4.0-76.1 The [facility] Comment on above: Result Comment: CUT- OFF POINTS HAVE BEEN ESTABLISHED BASED ON THE FOURTH UNIVERSAL DEFINITIONS OF MYOCARDIALINFARCTION. THE UPPER REFERENCE LIMIT (URL) OF TROPONIN, DEFINED THE 99TH PERCENTILE OFcTnI DISTRIBUTION IN A REFERENCE POPULATION, HAS BEEN CONFIRMED THE DECISION THRESHOLDFOR [place] DIAGNOSIS. Performed By: #### C MP, BNP, CMADM ####[facility] Xarlzaamto[address] [place], [place] [address]Dr. Garima Pulliam DORIS 133 ng/mL Critically high 16-96 [facility] Comment on above: Performed By: #### C MP, BNP, CMADM ####[facility] Gmqgtmlnpv0559 [place] [address]Dr. Garima Pulliam CBC AUTO DIFFon 09-29-2022 BASO # 0.0 103/ul Normal 0.0-0.1 The [facility] Comment on above: Performed By: #### C BC ####[facility] Syhihkxjjx[address] [place], [place] [address]Dr. Garima Pulliam Basophils/100 WBC (Bld) 0.2 % Normal 0.2-2.0 [facility] Comment on above: Performed By: #### C BC ####[facility] Kyyzserewa[address] [place], [place] [address]Dr. Garima Pulliam EO # 0.1 103/ul Normal 0.0-0.7 The [facility] Comment on above: Performed By: #### C BC ####[facility] Pllgohlxxx6359 [place] [address]Dr. Garima Pulliam Eosinophils/100 WBC (Bld) 1.4 % Normal 0.9-7.0 [facility] Comment on above: Performed By: #### C BC ####[facility] Rynydvoqav3438 [place] [address]Dr. Garima Pulliam Erythrocyte distribution wid th (RBC) [Ratio] 13.7 % Normal 11.0-15.0 The [facility] Comment on above: Performed By: #### C BC ####[facility] Spcyurtnxi5229 [place] [address]Dr. Garima Pulliam Hematocrit (Bld) [Volume fraction] 45.4 % Normal 4 2.0-54.0 [facility] Comment on above: Performed By: #### C BC ####[facility] Pmtymmozvy4119 [place] [address]Dr. Garima Pulliam Hemoglobin (Bld) [Mass/Vol] 14.8 g/dL Normal 14.0-18. 0 [facility] Comment on above: Performed By: #### C BC ####[facility] Lwndepvutm9581 [place] [address]Dr. Garima Heraclio IG # 0.04 10e3/ul Critically high 0.00-0.03 The [facility] Comment on above: Performed By: #### C BC ####[facility] Dcketajhri3049 [place] [address]Dr. Garima Pulliam IG % 0.5 % Normal 0.0-0.5 [facility] Comment on above: Performed By: #### C BC ####[facility] Ylvcmasezh2722 [place] [address]Dr. Chapisrenu Pulliam LYMPH # 1.1 103/ul Critically low 1.2-3.[address] [facility] Comment on above: Performed By: #### C BC ####[facility] Owarnmyprh0890 [place] [id number]. Chapisrenu Pulliam Lymphocytes/100 WBC (Bld) 12.7 % Critically low 20.5-6 0.0 [facility] Comment on above: Performed By: #### C BC ####[facility] Qoefdosams5759 [place] [id number]. Garima Pulliam MANUAL DIFF REQ NO Normal [facility] Comment on above: Performed By: #### C BC ####[facility] Ycrncryiti7328 [place] [id number]. Garima Pulliam MCH (RBC) [Entitic mass] 30.0 pg Normal 25.9-34.0 [facility] Comment on above: Performed By: #### C BC ####[facility] Ufwdejmzbk[address] [place], [place] [address]Dr. Garima Pulliam MCHC (RBC) [Mass/Vol] 32.6 g/dL Normal 29.9-35.2 [facility] Comment on above: Performed By: #### C BC ####[facility] Vjzwcpzigp6474 [place] [id number]. Garima Pulliam MCV (RBC) [Entitic vol] 91.9 fL Normal 80.0-94.0 [facility] Comment on above: Performed By: #### C BC ####[facility] Zoacaqrmyv2042 [place] [address]Dr. Garima Pulliam MONO # 0.4 103/ul Normal 0.3-0.8 [facility] ospital Comment on above: Performed By: #### C BC ####[facility] Lusknhsyyx3185 [place] [id number]. Garima Pulliam Monocytes/100 WBC (Bld) 4.8 % Normal 1.7-12.0 [facility] Comment on above: Performed By: #### C BC ####[facility] Kacwlntrvm[address] [place], [place] [address]Dr. Garima Pulliam NEUT # 7.1 103/ul Critically high 1.4-6.5 The [facility] Comment on above: Performed By: #### C BC ####[facility] Ujurykyvue6302 [place], [place] [address]Xv. Garima Pulliam Neutrophils/100 WBC (Bld) 80.4 % Critically high 43.0- 75.0 [facility] Comment on above: Performed By: #### C BC ####[facility] Ihwshcgezd7115 [place] [id number]. Garima Pulliam Platelet mean volume (Bld) [Entitic vol] 9.1 fL Critically low 9.5-13.5 The [facility] pital Comment on above: Performed By: #### C BC ####[facility] Fbummwbtbu1770 [place] [phone]. Garima Pulliam PLT 200 103/ul Normal 150-450 [facility] ospital Comment on above: Performed By: #### C BC ####[facility] Nbkxjuesle2722 [place] [id number]. Garima Pulliam RBC 4.94 106/ul Normal 4.70-6.10 [facility] Comment on above: Performed By: #### C BC ####[facility] Wzxurthykg2810 [place] [id number]. Garima Pulliam WBC 8.9 103/ul Normal 4.0-11.0 [facility] ospital Comment on above: Performed By: #### C BC ####[facility] Vlnpgyzybx7143 [place] [id number]. Garima Pulliam [facility] ([facility]on SARS-CoV-2 (COVID-19) RNA MARIE+probe Ql (Unsp spec) Not detected Normal NOT DETECTED [facility] Comment on above: Result Comment: When diagnostic testing is negative, the possibility of a false negative should be considered inthe context of a patient's recent exposures and the presence of clinical signs and symptomsconsistent with SARS-CoV-2.This test is not yet approved or cleared by the [place] FDA. When there are no FDA-approved or cleared tests available, and other criteria are met, FDA can make tests available under an emergency access mechanism called an Emergency Use Authorization (EUA). The EUA for this test is supported by the [place] of Health and Human Service's declaration that circumstances exist to justify the emergency use of in vitro diagnostics for the detection and/or diagnosis of the virus that causes COVID-19. This EUA will remain in effect for the duration of the COVID-19 declaration justifying emergency of IVDs, unless it is terminated or revoked by the FDA (after which the test may no longer be used). Performed By: #### C VDTBH ####[facility] Mzomknfifr3036 [place] [address]Dr. aGrima Pulliam LACTATE/LACTIC ACIDon 2021 Lactate [Moles/Vol] 1.7 mmol/L Normal 0.4-1.9 [facility] Comment on above: Performed By: #### L ACT ####[facility] Z[address]chitcmzb[address] [place], [place] [address]Dr. Garima Pulliam PROF 14(COMP METB)on 022 Albumin [Mass/Vol] 3.8 g/dL Normal 3.4-5.0 [facility] Comment on above: Performed By: #### C MP, BNP, CMADM ####[facility] Bdaalgnysj1694 [place] [address]Dr. Garima Pulliam Albumin/Globulin [Mass ratio] 1.5 {ratio} Normal [facility] Comment on above: Performed By: #### C MP, BNP, CMADM ####[facility] Jrtygqpdob3323 [place] [address]Dr. Garima Pulliam ALP [Catalytic activity/Vol] 62 U/L Normal 46-116 [facility] Comment on above: Performed By: #### C MP, BNP, CMADM ####[facility] Fcszlsymld4684 [place] [address]Dr. Garima Pulliam ALT [Catalytic activity/Vol] 37 U/L Normal 16-63 [facility] Comment on above: Performed By: #### C MP, BNP, CMADM ####[facility] Vwfslhkqdt7041 [place] [address]Dr. Garima Pulliam Anion gap [Moles/Vol] 8.0 mmol/L Normal [facility] Comment on above: Performed By: #### C MP, BNP, CMADM ####[facility] Ceonvuvhdt4171 [place] [address]Dr. Garima Pulliam AST [Catalytic activity/Vol] 20 U/L Normal 15-37 [facility] Comment on above: Performed By: #### C MP, BNP, CMADM ####[facility] Reeeaydjxg6918 [place] [address]Dr. Garima Pulliam Bilirubin [Mass/Vol] 0.6 mg/dL Normal 0.2-1.0 [facility] Comment on above: Performed By: #### C MP, BNP, CMADM ####[facility] Uxpyjabhnr0252 [place] [address]Dr. Garima Pulliam Calcium [Mass/Vol] 9.1 mg/dL Normal 8.5-10.1 [facility] Comment on above: Performed By: #### C MP, BNP, CMADM ####[facility] Ktcjnglwtk[address] [place], [place] [address]Dr. Garima Pulliam Chloride [Moles/Vol] 103 mmol/L Normal 98-107 [facility] Comment on above: Performed By: #### C MP, BNP, CMADM ####[facility] [address]qfubdcef[address] [place], [place] [address]Dr. Garima Pulliam CO2 [Moles/Vol] 31.8 mmol/L Normal 21.0-32.0 The [facility] Comment on above: Performed By: #### C MP, BNP, CMADM ####[facility] Spcmmhxxjl[address] [place], [place] [address]Dr. Garima Pulliam Creatinine [Mass/Vol] 0.63 mg/dL Critically low 0.70-1.30 [facility] Comment on above: Performed By: #### C MP, BNP, CMADM ####[facility] [address] [place], [place] [address]Dr. Garima Pulliam EGFR-AF IRISH >60 Normal >=60 [facility] Comment on above: Performed By: #### C MP, BNP, CMADM ####[facility] F[address] [place], [place] [address]Dr. Garima Pulliam EGFR-NON AF IRISH >60 Normal >=60 [facility] Comment on above: Performed By: #### C MP, BNP, CMADM ####[facility] Evvevqcvmi[address] [place] [address]Dr. Garima Pulliam Globulin (S) [Mass/Vol] 2.6 g/dL Normal T [facility] Comment on above: Performed By: #### C MP, BNP, CMADM ####[facility] Ketawusufn[address] [place] [address]Dr. Garima Pulliam Glucose [Mass/Vol] 103 mg/dL Normal 74-106 [facility] Comment on above: Performed By: #### C MP, BNP, CMADM ####[facility] Vibetmnsrt39[address] [place] [address]Dr. Garima Pulliam Potassium [Moles/Vol] 3.8 mmol/L Normal 3.5-5.1 [facility] Comment on above: Performed By: #### C MP, BNP, CMADM ####[facility] Svikwwshib[address] [place] [address]Dr. Garima Pulliam Protein [Mass/Vol] 6.4 g/dL Normal 6.4-8.2 [facility] Comment on above: Performed By: #### C MP, BNP, CMADM ####[facility] Qmidulggrd8[address] [place] [address]Dr. Garima Pulliam Sodium [Moles/Vol] 139 mmol/L Normal 136-145 [facility] Comment on above: Performed By: #### C MP, BNP, CMADM ####[facility] Sqtuxrmdlw[address] [place] [address]Dr. Garima Pulliam Urea nitrogen [Mass/Vol] 7.0 mg/dL Normal 7.0-18.0 [facility] Comment on above: Performed By: #### C MP, BNP, CMADM ####[facility] Xlsqrwodzz[address] [place] [address]Dr. Garima Pulliam Urea nitrogen/Creatinine [Mass ratio] 11.1 mg/mg Normal [facility] Comment on above: Performed By: #### C MP, BNP, CMADM ####[facility] Kqqbsjcpcs[address] [place] [address]Dr. Garima Pulliam PROTIMEon 09-29-2022 INR Coag (PPP) [Relative time] 1.14 {INR} Normal [facility] Comment on above: Performed By: #### P T, PTT ####[facility] I[address]mvj[address]zt[address] [place], [place] [address]Dr. Garima Pulliam INR GUIDELINES SEE BELOW Normal [facility] Comment on above: Result Comment: WESLEY RED INR: 2.0 - 3.0 CONDITIONS NOT LISTED BELOW 2.5 - 3.5 FOR PROSTHETIC HEART VALVE REPLACEMENT 2.5 - 3.5 RECURRENT THROMBOSIS Performed By: #### P T, PTT ####[facility] F[address]rysej[address] [place], [place] [address]Dr. Garima Pulliam PT Coag (PPP) [Time] 12.2 s Critically high 9.0-11.6 [facility] Comment on above: Performed By: #### P T, PTT ####[facility] U[address] [place], [place] [address]Dr. Garima Pulliam PTTon 09-29-2022 aPTT Coag (Bld) [Time] 29.3 s Normal 22.3-36.2 Th [facility] Comment on above: Performed By: #### P T, PTT ####[facility] Sqip[address] [place], [place] [address]Dr. Garima Pulliam XR CHEST 1 Von 09-29-2022 XR CHEST 1 V Normal [facility] CBC AUTO DIFFon 09-26-2022 BASO # 0.0 103/ul Normal 0.0-0.1 [facility] Comment on above: Performed By: #### C BC ####[facility] Z[address]jozlju[address] [place], [place] [address]DrAdalberto Pulliam Basophils/100 WBC (Bld) 0.2 % Normal 0.2-2.0 [facility] Comment on above: Performed By: #### C BC ####[facility] Uiqtms[address] [place], [place] [address]Dr. Garima Pulliam EO # 0.1 103/ul Normal 0.0-0.7 [facility]ital Comment on above: Performed By: #### C BC ####[facility] Tuixersfgw[address] [place] [address]Dr. Garima Pulliam Eosinophils/100 WBC (Bld) 1.0 % Normal 0.9-7.0 [facility] Comment on above: Performed By: #### C BC ####[facility] Fqpuwijlwx6229 [place] [address]Dr. Garima Pulliam Erythrocyte distribution wid th (RBC) [Ratio] 13.4 % Normal 11.0-15.0 The [facility] Comment on above: Performed By: #### C BC ####[facility] Oepzoffslu8806 [place] [address]Dr. Garima Pulliam Hematocrit (Bld) [Volume fraction] 46.3 % Normal 4 2.0-54.0 [facility] Comment on above: Performed By: #### C BC ####[facility] Gxzktcmnfv[address] [place], [place] [address]Dr. Garima Pulliam Hemoglobin (Bld) [Mass/Vol] 15.3 g/dL Normal 14.0-18. 0 [facility] Comment on above: Performed By: #### C BC ####[facility] Reavxmxnhz[address] [place], [place] [address]Dr. Garima Pulliam IG # 0.05 10e3/ul Critically high 0.00-0.03 The [facility] Comment on above: Performed By: #### C BC ####[facility] Ueekuzdqzx28[address] [place] [address]Dr. Garima Pulliam IG % 0.4 % Normal 0.0-0.5 [facility] Comment on above: Performed By: #### C BC ####[facility] Pnadixavgq[address] [place], [place] [address]Dr. Garima Pulliam LYMPH # 1.7 103/ul Normal 1.2-3.8 [facility] Comment on above: Performed By: #### C BC ####[facility] Hcehkcznay9633 [place] [phone]. Garima Heraclio Lymphocytes/100 WBC (Bld) 12.7 % Critically low 20.5-6 0.0 [facility] Comment on above: Performed By: #### C BC ####[facility] Zcfzrlpaxc9706 [place] [phone]. Chapisrenu Pulliam MANUAL DIFF REQ NO Normal [facility] Comment on above: Performed By: #### C BC ####[facility] Bxrlnaxthc4708 [place] [address]Dr. Chapisrenu Pulliam MCH (RBC) [Entitic mass] 30.1 pg Normal 25.9-34.0 [facility] Comment on above: Performed By: #### C BC ####[facility] Imllsynmsd6[address] [place], [place] [address]Dr. Garima Pulliam MCHC (RBC) [Mass/Vol] 33.0 g/dL Normal 29.9-35.2 [facility] Comment on above: Performed By: #### C BC ####[facility] Sgnsvcunkk0936 [place] [address]Dr. Garima Pulliam MCV (RBC) [Entitic vol] 91.1 fL Normal 80.0-94.0 [facility] Comment on above: Performed By: #### C BC ####[facility] Tsdbjvcpjz8445 [place] [address]Dr. Garima Pulliam MONO # 0.9 103/ul Critically high 0.3-0.8 The [facility] Comment on above: Performed By: #### C BC ####[facility] Eqjbwqsowv1917 [place] [address]Dr. Garima Pulliam Monocytes/100 WBC (Bld) 7.0 % Normal 1.7-12.0 [facility] Comment on above: Performed By: #### C BC ####[facility] Ugioamzbjo[address] [place], [place] [address]Dr. Garima Pulliam NEUT # 10.4 103/ul Critically high 1.4-6.5 [facility] Comment on above: Performed By: #### C BC ####[facility] Nslgllryng5855 [place] [phone]. Garima Pulliam Neutrophils/100 WBC (Bld) 78.7 % Critically high 43.0- 75.0 [facility] Comment on above: Performed By: #### C BC ####[facility] Enteedkfzs7277 [place] [phone]. Garima Pulliam Platelet mean volume (Bld) [Entitic vol] 8.9 fL Critically low 9.5-13.5 The [facility] pital Comment on above: Performed By: #### C BC ####[facility] Sllmfxhdmb6431 [place] [phone]. Garima Pulliam PLT 195 103/ul Normal 150-450 [facility] Comment on above: Performed By: #### C BC ####[facility] Q[address] [place], [place] [id number]. Garima Pulliam RBC 5.08 106/ul Normal 4.70-6.10 [facility] Comment on above: Performed By: #### C BC ####[facility] Mhercrlkgq5495 [place] [phone]. Garima Pulliam WBC 13.2 103/ul Critically high 4.0-11.0 [facility] Comment on above: Performed By: #### C BC ####[facility] Hdivzwdyvf8088 [place] [phone]. Garima Pulliam PROF 14(COMP METB)on 022 Albumin [Mass/Vol] 3.5 g/dL Normal 3.4-5.0 [facility] Comment on above: Performed By: #### C DAVID HSTROPN ####[facility] Yqddrxlxzb6581 [place] [phone]. Garima Pulliam Albumin/Globulin [Mass ratio] 1.2 {ratio} Normal [facility] Comment on above: Performed By: #### C DAVID HSTROPN ####[facility] Gzvxbricdm6776 [place] [phone]. Garima Pulliam ALP [Catalytic activity/Vol] 71 U/L Normal 46-116 [facility] Comment on above: Performed By: #### C DAIVD, HSTROPN ####[facility] Iehxkqqque88[address] [place] [address]Dr. Garima Pulliam ALT [Catalytic activity/Vol] 37 U/L Normal 16-63 [facility] Comment on above: Performed By: #### C DAVID, HSTROPN ####[facility] Heopftkurf4561 [place] [address]Dr. Garima Pulliam Anion gap [Moles/Vol] 4.8 mmol/L Normal [facility] Comment on above: Performed By: #### C DAVID, HSTROPN ####[facility] Yibqcqherc9493 [place] [address]Dr. Garima Pulliam AST [Catalytic activity/Vol] 21 U/L Normal 15-37 [facility] Comment on above: Performed By: #### C DAVID, HSTROPN ####[facility] Cltf[address]fzc[address] [place], [place] [address]Dr. Garima Pulliam Bilirubin [Mass/Vol] 0.3 mg/dL Normal 0.2-1.0 [facility] Comment on above: Performed By: #### C DAVID, HSTROPN ####[facility] Ffstspwolt[address] [place], [place] [address]Dr. Garima Pulliam Calcium [Mass/Vol] 8.9 mg/dL Normal 8.5-10.1 [facility] Comment on above: Performed By: #### C DAVID, HSTROPN ####[facility] K[address]wwlplu[address] [place], [place] [address]Dr. Garima Pulliam Chloride [Moles/Vol] 106 mmol/L Normal 98-107 [facility] Comment on above: Performed By: #### C DAVID, HSTROPN ####[facility] Avqwjqwkgn[address] [place], [place] [address]Dr. Garima Pulliam CO2 [Moles/Vol] 29.8 mmol/L Normal 21.0-32.0 [facility] Comment on above: Performed By: #### C DAVID, HSTROPN ####[facility] Ozgntnrsmt8785 [place] [address]Dr. Garima Pulliam Creatinine [Mass/Vol] 0.68 mg/dL Critically low 0.70-1.30 [facility] Comment on above: Performed By: #### C DAVID, HSTROPN ####[facility] Knikwspbet7119 [place] [address]Dr. Garima Pulliam EGFR-AF IRISH >60 Normal >=60 [facility] Comment on above: Performed By: #### C DAVID, HSTROPN ####[facility] Targbydgai9840 [place] [address]Dr. Garima Pulliam EGFR-NON AF IRISH >60 Normal >=60 [facility] Comment on above: Performed By: #### C DAVID, HSTROPN ####[facility] Itdvprkaoq8863 [place] [address]Dr. Chapisrenu Pulliam Globulin (S) [Mass/Vol] 2.8 g/dL Normal [facility] Comment on above: Performed By: #### C DAVID, HSTROPN ####[facility] Flbhtiftmr4396 [place] [address]Dr. Chapisrenu Pulliam Glucose [Mass/Vol] 133 mg/dL Critically high 74-106 [facility] Comment on above: Performed By: #### C DAVDI, HSTROPN ####[facility] Gkntqcxpnz0481 [place] [address]Dr. Chapisrenu Pulliam Potassium [Moles/Vol] 3.6 mmol/L Normal 3.5-5.1 [facility] Comment on above: Performed By: #### C DAVID, HSTROPN ####[facility] Ggehisvdhs3129 [place] [address]Dr. Garima Pulliam Protein [Mass/Vol] 6.3 g/dL Critically low 6.4-8.2 [facility] Comment on above: Performed By: #### C DAVID, HSTROPN ####[facility] Fnufmemhxv0131 [place] [address]Dr. Chapisrenu Pulliam Sodium [Moles/Vol] 137 mmol/L Normal 136-145 [facility] Comment on above: Performed By: #### C DAVID, HSTROPN ####[facility] Fzsxlxuhla4474 [place] [address]Dr. Garima Pulliam Urea nitrogen [Mass/Vol] 15.0 mg/dL Normal 7.0-18.0 [facility] Comment on above: Performed By: #### C DAVID, HSTROPN ####[facility] Lkjdqsjjok2606 [place] [address]Dr. Garima Pulliam Urea nitrogen/Creatinine [Mass ratio] 22.1 mg/mg Normal [facility] Comment on above: Performed By: #### C DAVID HSTROPN ####[facility] Dvduafpfrp5504 [place] [address]Dr. Garima Pulliam TROPONIN, HIGH SENSITIVITYon 09-26-2022 HSTROP 12.8 pg/mL Normal 4.0-76.1 [facility] Comment on above: Result Comment: CUT- OFF POINTS HAVE BEEN ESTABLISHED BASED ON THE FOURTH UNIVERSAL DEFINITIONS OF MYOCARDIALINFARCTION. THE UPPER REFERENCE LIMIT (URL) OF TROPONIN, DEFINED THE 99TH PERCENTILE OFcTnI DISTRIBUTION IN A REFERENCE POPULATION, HAS BEEN CONFIRMED THE DECISION THRESHOLDFOR [place] DIAGNOSIS. Performed By: #### C DAVID HSTROPN ####[facility] Snvaixaqhc[address] [place], [place] [address]Dr. Garima Pulliam XR CHEST 1 Von 09-26-2022 XR CHEST 1 V Normal [facility] XR CHEST 1 Von 09-16-2022 XR CHEST 1 V Normal [facility] CBC AUTO DIFFon 09-15-2022 BASO # 0.0 103/ul Normal 0.0-0.1 [facility] Comment on above: Performed By: #### C BC ####[facility] Chqjswiyoj[address] [place], [place] [address]Dr. Garima Pulliam Basophils/100 WBC (Bld) 0.1 % Critically low 0.2-2.0 [facility] Comment on above: Performed By: #### C BC ####[facility] Kiadlfptaj4907 [place] [address]Dr. Garima Pulliam EO # 0.0 103/ul Normal 0.0-0.7 [facility]ital Comment on above: Performed By: #### C BC ####[facility] Pgfxenitvi[address] [place], [place] [address]Dr. Garima Heraclio Eosinophils/100 WBC (Bld) 0.1 % Critically low 0.9-7. 0 [facility] Comment on above: Performed By: #### C BC ####[facility] Kfcdaeeoxg[address] [place], [place] [address]Dr. Chapisrenu Heraclio Erythrocyte distribution wid th (RBC) [Ratio] 14.1 % Normal 11.0-15.0 [facility] Comment on above: Performed By: #### C BC ####[facility] Yttvzljskl[address] [place], [place] [address]Dr. Garima Pulliam Hematocrit (Bld) [Volume fraction] 46.1 % Normal 4 2.0-54.0 [facility] Comment on above: Performed By: #### C BC ####[facility] Hzmdqhwhjt029[address] [place], [place] [address]Dr. Garima Pulliam Hemoglobin (Bld) [Mass/Vol] 15.0 g/dL Normal 14.0-18. 0 [facility] Comment on above: Performed By: #### C BC ####[facility] Hfverdbyro[address] [place], [place] [address]Dr. Garima Pulliam IG # 0.03 10e3/ul Normal 0.00-0.03 [facility] Comment on above: Performed By: #### C BC ####[facility] Donbeqieke[address] [place], [place] [address]Dr. Garima Pulliam IG % 0.3 % Normal 0.0-0.5 [facility] Comment on above: Performed By: #### C BC ####[facility] Phtfmkjhzw[address] [place], [place] [address]Dr. Garima Pulliam LYMPH # 0.6 103/ul Critically low 1.2-3.[address] [facility] Comment on above: Performed By: #### C BC ####[facility] Geopayxxue[address] [place], [place] [address]Dr. Garima Pulliam Lymphocytes/100 WBC (Bld) 5.8 % Critically low 20.5-6 0.0 [facility] Comment on above: Performed By: #### C BC ####[facility] Zjyrrqblva1470 [place] [address]Dr. Chapisrenu Pulliam MANUAL DIFF REQ NO Normal [facility] Comment on above: Performed By: #### C BC ####[facility] Yljxlqnosl6407 [place] [address]Dr. Garima Pulliam MCH (RBC) [Entitic mass] 30.2 pg Normal 25.9-34.0 [facility] Comment on above: Performed By: #### C BC ####[facility] Lgnesmgtqy024[address] [place], [place] [address]Dr. Chapisrenu Heraclio MCHC (RBC) [Mass/Vol] 32.5 g/dL Normal 29.9-35.2 [facility] Comment on above: Performed By: #### C BC ####[facility] Evnwqcyiud[address] [place], [place] [address]Dr. Garima Pulliam MCV (RBC) [Entitic vol] 92.8 fL Normal 80.0-94.0 [facility] Comment on above: Performed By: #### C BC ####[facility] Nvuxfqzlqi[address] [place], [place] [address]Dr. Garima Pulliam MONO # 0.3 103/ul Normal 0.3-0.8 [facility]ital Comment on above: Performed By: #### C BC ####[facility] W[address]jayojjd[address] [place], [place] [address]Dr. Garima Pulliam Monocytes/100 WBC (Bld) 3.2 % Normal 1.7-12.0 [facility] Comment on above: Performed By: #### C BC ####[facility] Yrepkpctyc[address] [place], [place] [address]Dr. Garima Pulliam NEUT # 9.8 103/ul Critically high 1.4-6.5 The [facility] Comment on above: Performed By: #### C BC ####[facility] Waicjvfxss8694 [place] [address]Dr. Chapisrenu Heraclio Neutrophils/100 WBC (Bld) 90.5 % Critically high 43.0- 75.0 [facility] Comment on above: Performed By: #### C BC ####[facility] Rqofzvwsxl1349 [place] [address]Dr. Garima Pulliam Platelet mean volume (Bld) [Entitic vol] 9.4 fL Critically low 9.5-13.5 [facility] Comment on above: Performed By: #### C BC ####[facility] Vkygmiuxir[address] [place], [place] [address]Dr. Garima Pulliam PLT 208 103/ul Normal 150-450 [facility] Comment on above: Performed By: #### C BC ####[facility] Wbmlpqzcdr[address] [place], [place] [address]Dr. Garima Pulliam RBC 4.97 106/ul Normal 4.70-6.10 [facility] Comment on above: Performed By: #### C BC ####[facility] Iwnxxkqjux[address] [place], [place] [address]Dr. Garima Pulliam WBC 10.8 103/ul Normal 4.0-11.0 [facility] Comment on above: Performed By: #### C BC ####[facility] Rfolcyxctn[address] [place], [place] [address]Dr. Garima Pulliam PROF 14(COMP METB)on 022 Albumin [Mass/Vol] 4.0 g/dL Normal 3.4-5.0 [facility] Comment on above: Performed By: #### C MP ####[facility] Knjqmagbbw2534 [place] [address]Dr. Garima Pulliam Albumin/Globulin [Mass ratio] 1.5 {ratio} Normal [facility] Comment on above: Performed By: #### C MP ####[facility] Maciqamrge3658 [place] [address]Dr. Garima Pulliam ALP [Catalytic activity/Vol] 73 U/L Normal 46-116 [facility] Comment on above: Performed By: #### C MP ####[facility] Eisudjpvof6783 [place] [id number]. Garima Pulliam ALT [Catalytic activity/Vol] 42 U/L Normal 16-63 [facility] Comment on above: Performed By: #### C MP ####[facility] Elvievqlki0699 [place] [address]Dr. Garima Pulliam Anion gap [Moles/Vol] 9.1 mmol/L Normal [facility] Comment on above: Performed By: #### C MP ####[facility] Ewyoeolyzh[address] [place], [place] [address]Dr. Garima Pulliam AST [Catalytic activity/Vol] 28 U/L Normal 15-37 [facility] Comment on above: Performed By: #### C MP ####[facility] Y[address]yhgsblu[address] [place], [place] [address]Dr. Garima Pulliam Bilirubin [Mass/Vol] 0.6 mg/dL Normal 0.2-1.0 [facility] Comment on above: Performed By: #### C MP ####[facility] Fiitlneszo0[address] [place], [place] [address]Dr. Garima Pulliam Calcium [Mass/Vol] 8.6 mg/dL Normal 8.5-10.1 [facility] Comment on above: Performed By: #### C MP ####[facility] Tdegwetjgt[address] [place], [place] [address]Dr. Garima Pulliam Chloride [Moles/Vol] 105 mmol/L Normal 98-107 [facility] Comment on above: Performed By: #### C MP ####[facility] Urdscwlcmd[address] [place], [place] [address]Dr. Garima Pulliam CO2 [Moles/Vol] 28.5 mmol/L Normal 21.0-32.0 The [facility] Comment on above: Performed By: #### C MP ####[facility] Sucbuccmhx[address] [place], [place] [address]Dr. Garima Pulliam Creatinine [Mass/Vol] 0.78 mg/dL Normal 0.70-1.30 [facility] Comment on above: Performed By: #### C MP ####[facility] Z[address]ps[address] [place] [address]f. Garima Pulliam EGFR-AF IRISH >60 Normal >=60 [facility] Comment on above: Performed By: #### C MP ####[facility] Ezsisclswp1357 [place] [address]Dr. Garima Pulliam EGFR-NON AF IRISH >60 Normal >=60 [facility] Comment on above: Performed By: #### C MP ####[facility] Comhpingkz3078 [place] [address]Dr. Garima Heraclio Globulin (S) [Mass/Vol] 2.7 g/dL Normal [facility] Comment on above: Performed By: #### C MP ####[facility] [address]uzjwqh[address] [place], [place] [address]Dr. Garima Heraclio Glucose [Mass/Vol] 220 mg/dL Critically high 74-106 [facility] Comment on above: Performed By: #### C MP ####[facility] Upyhbjruiv[address] [place], [place] [address]Dr. Garima Heraclio Potassium [Moles/Vol] 3.6 mmol/L Normal 3.5-5.1 [facility] Comment on above: Performed By: #### C MP ####[facility] H[address]owcvfcz[address] [place], [place] [address]Dr. Garima Heraclio Protein [Mass/Vol] 6.7 g/dL Normal 6.4-8.2 [facility] Comment on above: Performed By: #### C MP ####[facility] M[address]irxqsfqg[address] [place], [place] [address]Dr. Garima Heraclio Sodium [Moles/Vol] 139 mmol/L Normal 136-145 [facility] Comment on above: Performed By: #### C MP ####[facility] Vyclvqbyaw[address] [place], [place] [address]Dr. Garima Pulliam Urea nitrogen [Mass/Vol] 11.0 mg/dL Normal 7.0-18.0 [facility] Comment on above: Performed By: #### C MP ####[facility] C[address]xhgkryn[address] [place], [place] [address]Dr. Garima Pulliam Urea nitrogen/Creatinine [Mass ratio] 14.1 mg/mg Normal [facility] Comment on above: Performed By: #### C MP ####[facility] Kdlevsetgy2838 [place] [address]Dr. Garima Pulliam CARDIAC NASH 3-6on 2 CK [Catalytic activity/Vol] 240 U/L Normal 39-308 [facility] Comment on above: Performed By: #### C MREP ####[facility] Rxauolximv9868 [place] [address]Dr. Garima Pulliam CK.MB [Mass/Vol] 10.38 ng/mL Critically high <=3.60 Th [facility] Comment on above: Performed By: #### C MREP ####[facility] Eszhmhrqpt[address] [place], [place] [address]Dr. Garima Pulliam HSTROP 18.5 pg/mL Normal 4.0-76.1 [facility] Comment on above: Result Comment: CUT- OFF POINTS HAVE BEEN ESTABLISHED BASED ON THE FOURTH UNIVERSAL DEFINITIONS OF MYOCARDIALINFARCTION. THE UPPER REFERENCE LIMIT (URL) OF TROPONIN, DEFINED THE 99TH PERCENTILE OFcTnI DISTRIBUTION IN A REFERENCE POPULATION, HAS BEEN CONFIRMED THE DECISION THRESHOLDFOR [place] DIAGNOSIS. Performed By: #### C MREP ####[facility] Ckmachchlw[address] [place], [place] [address]Dr. Garima Pulliam CK [Catalytic activity/Vol] 257 U/L Normal 39-308 [facility] Comment on above: Performed By: #### C MREP ####[facility] Yqrooellrt[address] [place], [place] [address]Dr. Garima Pulliam CK.MB [Mass/Vol] 9.89 ng/mL Critically high <=3.60 [facility] Comment on above: Performed By: #### C MREP ####[facility] Yjzspdsviq[address] [place], [place] [address]Dr. Garima Pulliam HSTROP 16.9 pg/mL Normal 4.0-76.1 [facility] Comment on above: Result Comment: CUT- OFF POINTS HAVE BEEN ESTABLISHED BASED ON THE FOURTH UNIVERSAL DEFINITIONS OF MYOCARDIALINFARCTION. THE UPPER REFERENCE LIMIT (URL) OF TROPONIN, DEFINED THE 99TH PERCENTILE OFcTnI DISTRIBUTION IN A REFERENCE POPULATION, HAS BEEN CONFIRMED THE DECISION THRESHOLDFOR [place] DIAGNOSIS. Performed By: #### C MREP ####[facility] Pitfaawkyl[address] [place] [address]Dr. Garima Pulliam CBC AUTO DIFFon 09-13-2022 BASO # 0.0 103/ul Normal 0.0-0.1 [facility] Comment on above: Performed By: #### C BC ####[facility] [address]vsxtkpc[address] [place], [place] [address]Dr. Chapisrenu Pulliam Basophils/100 WBC (Bld) 0.1 % Critically low 0.2-2.0 [facility] Comment on above: Performed By: #### C BC ####[facility] Yfwhggycaf[address] [place], [place] [address]Dr. Chapisrenu Pulliam EO # 0.0 103/ul Normal 0.0-0.7 [facility] Comment on above: Performed By: #### C BC ####[facility] Ijnkywkszk[address] [place], [place] [address]Dr. Chapisrenu Pulliam Eosinophils/100 WBC (Bld) 0.0 % Critically low 0.9-7. 0 [facility] Comment on above: Performed By: #### C BC ####[facility] [address]or[address]aiutiw[address] [place], [place] [address]Dr. Garima Pulliam Erythrocyte distribution wid th (RBC) [Ratio] 13.6 % Normal 11.0-15.0 [facility] Comment on above: Performed By: #### C BC ####[facility] Vynoarusln[address] [place], [place] [address]Dr. Chapisrenu Pulliam Hematocrit (Bld) [Volume fraction] 48.2 % Normal 4 2.0-54.0 [facility] Comment on above: Performed By: #### C BC ####[facility] [address] [place], [place] [address]Dr. Chapisrenu Pulliam Hemoglobin (Bld) [Mass/Vol] 16.0 g/dL Normal 14.0-18. 0 [facility] Comment on above: Performed By: #### C BC ####[facility] [address]feuhi[address] [place] [id number]. Chapisrenu Pulliam IG # 0.02 10e3/ul Normal 0.00-0.03 [facility] Comment on above: Performed By: #### C BC ####[facility] Tukdthkggu69[address] [place] [id number]. Garima Pulliam IG % 0.3 % Normal 0.0-0.5 [facility] Comment on above: Performed By: #### C BC ####[facility] [address]sw[address] [place] [address]Dr. Garima Pulliam LYMPH # 0.5 103/ul Critically low 1.2-3.8 [facility] Comment on above: Performed By: #### C BC ####[facility] Drcpsibitm7[address] [place] [address]Dr. Garima Pulliam Lymphocytes/100 WBC (Bld) 7.7 % Critically low 20.5-6 0.0 [facility] Comment on above: Performed By: #### C BC ####[facility] Ad[address]okq[address] [place] [address]Dr. Garima Pulliam MANUAL DIFF REQ NO Normal [facility] Comment on above: Performed By: #### C BC ####[facility] Gdcxdzhbtz37[address] [place] [phone]. Garima Pulliam MCH (RBC) [Entitic mass] 30.6 pg Normal 25.9-34.0 [facility] Comment on above: Performed By: #### C BC ####[facility] Piposcrikm[address] [place] [id number]. Chapisrenu Pulliam MCHC (RBC) [Mass/Vol] 33.2 g/dL Normal 29.9-35.2 [facility] Comment on above: Performed By: #### C BC ####[facility] Ehbmfpwche75[address] [place] [id number]. Garima Pulliam MCV (RBC) [Entitic vol] 92.2 fL Normal 80.0-94.0 [facility] Comment on above: Performed By: #### C BC ####[facility] Dooqkbjgpp[address] [place] [id number]. Garima Pulliam MONO # 0.0 103/ul Critically low 0.3-0.[address] [facility] Comment on above: Performed By: #### C BC ####[facility] Nrftufodqc5306 [place] [phone]. Garima Pulliam Monocytes/100 WBC (Bld) 0.4 % Critically low 1.7-12.0 [facility] Comment on above: Performed By: #### C BC ####[facility] [address] [place], [place] [address]Dr. Garima Pulliam NEUT # 6.2 103/ul Normal 1.4-6.5 [facility] Comment on above: Performed By: #### C BC ####[facility] [address] [place], [place] [address]Dr. Garima Pulliam Neutrophils/100 WBC (Bld) 91.5 % Critically high 43.0- 75.0 [facility] Comment on above: Performed By: #### C BC ####[facility] [address] [place], [place] [address]Dr. Garima Pulliam Platelet mean volume (Bld) [Entitic vol] 8.7 fL Critically low 9.5-13.5 [facility] Comment on above: Performed By: #### C BC ####[facility] [address] [place], [place] [address]Dr. Garima Pulliam PLT 179 103/ul Normal 150-450 [facility] Comment on above: Performed By: #### C BC ####[facility] [address]rzatndc[address] [place], [place] [address]Dr. Garima Pulliam RBC 5.23 106/ul Normal 4.70-6.10 [facility] Comment on above: Performed By: #### C BC ####[facility] [address]nyc[address] [place], [place] [address]Dr. Garima Pulliam WBC 6.7 103/ul Normal 4.0-11.0 [facility] Comment on above: Performed By: #### C BC ####[facility] Pgbqfkztuf34[address] [place] [address]Dr. Garima Pulliam PROF CHEM 8 (BAS METB)on Anion gap [Moles/Vol] 12.1 mmol/L Normal [facility] Comment on above: Performed By: #### B MP ####[facility] Qpwwgrryfh6[address] [place] [address]Dr. Garima Pulliam Calcium [Mass/Vol] 8.7 mg/dL Normal 8.5-10.1 [facility] Comment on above: Performed By: #### B MP ####[facility] [address] [place], [place] [address]Dr. Garima Pulliam Chloride [Moles/Vol] 105 mmol/L Normal 98-107 [facility] Comment on above: Performed By: #### B MP ####[facility] [address] [place], [place] [address]Dr. Garima Pulliam CO2 [Moles/Vol] 25.5 mmol/L Normal 21.0-32.0 [facility] [place] Comment on above: Performed By: #### B MP ####[facility] [address]fs[address] [place], [place] [address]Dr. Garima Pulliam Creatinine [Mass/Vol] 0.63 mg/dL Critically low 0.70-1.30 [facility] Comment on above: Performed By: #### B MP ####[facility] [address] [place], [place] [address]Dr. Garima Pulliam EGFR-AF IRISH >60 Normal >=60 [facility] [place] Comment on above: Performed By: #### B MP ####[facility] L[address] [place], [place] [address]Dr. Garima Pulliam EGFR-NON AF IRISH >60 Normal >=60 [facility] Comment on above: Performed By: #### B MP ####[facility] [address]wq[address] [place], [place] [address]Dr. Garima Pulliam Glucose [Mass/Vol] 162 mg/dL Critically high 74-106 [facility] Comment on above: Performed By: #### B MP ####[facility] Hmxqurvdng86[address] [place] [phone]. Garima Pulliam Potassium [Moles/Vol] 3.6 mmol/L Normal 3.5-5.1 [facility] Comment on above: Performed By: #### B MP ####[facility] Bytukqraew6124 [place] [phone]. Garima Pulliam Sodium [Moles/Vol] 139 mmol/L Normal 136-145 [facility] Comment on above: Performed By: #### B MP ####[facility] Dkkpotjlfo9932 [place] [address]Dr. Garima Pulliam Urea nitrogen [Mass/Vol] 9.0 mg/dL Normal 7.0-18.0 [facility] Comment on above: Performed By: #### B MP ####[facility] Znbvatybqv[address] [place] [address]Dr. Garima Pulliam Urea nitrogen/Creatinine [Mass ratio] 14.3 mg/mg Normal [facility] Comment on above: Performed By: #### B MP ####[facility] Apuxdrsuqt0404 [place] [phone]. Garima Pulliam CARDIAC NASH ADMITon 022 CK [Catalytic activity/Vol] 304 U/L Normal 39-308 [facility] Comment on above: Performed By: #### B MP, CMADM ####[facility] Iugfbdiwwf8[address] [place] [address]Dr. Garima Pulliam CK.MB [Mass/Vol] 11.81 ng/mL Critically high <=3.60 [facility] Comment on above: Performed By: #### B MP, CMADM ####[facility] Neushbxsma64[address] [place] [address]Dr. Garima Pulliam HSTROP 13.3 pg/mL Normal 4.0-76.1 [facility] Comment on above: Result Comment: CUT- OFF POINTS HAVE BEEN ESTABLISHED BASED ON THE FOURTH UNIVERSAL DEFINITIONS OF MYOCARDIALINFARCTION. THE UPPER REFERENCE LIMIT (URL) OF TROPONIN, DEFINED THE 99TH PERCENTILE OFcTnI DISTRIBUTION IN A REFERENCE POPULATION, HAS BEEN CONFIRMED THE DECISION THRESHOLDFOR [place] DIAGNOSIS. Performed By: #### B NANCY HERNANDEZ ####[facility] [address]wn[address] [place] [address]Dr. Garima Pulliam DORIS 133 ng/mL Critically high 16-96 [facility] Comment on above: Performed By: #### B NANCY HERNANDEZ ####[facility] Nghxnmmorc0145 [place] [address]Dr. Garima Pulliam CBC AUTO DIFFon 09-12-2022 BASO # 0.0 103/ul Normal 0.0-0.1 [facility] Comment on above: Performed By: #### C BC ####[facility] [address] [place], [place] [address]Dr. Garima Pulliam Basophils/100 WBC (Bld) 0.2 % Normal 0.2-2.0 [facility] Comment on above: Performed By: #### C BC ####[facility] Sz[address] [place], [place] [address]Dr. Garima Pulliam EO # 0.2 103/ul Normal 0.0-0.7 [facility] Comment on above: Performed By: #### C BC ####[facility] V[address] [place], [place] [address]Dr. Garima Pulliam Eosinophils/100 WBC (Bld) 1.3 % Normal 0.9-7.0 [facility] Comment on above: Performed By: #### C BC ####[facility] [address]dsxcvfjt[address] [place], [place] [address]Dr. Garima Pulliam Erythrocyte distribution wid th (RBC) [Ratio] 13.7 % Normal 11.0-15.0 [facility] Comment on above: Performed By: #### C BC ####[facility] Mydmkhmyas[address] [place], [place] [address]Dr. Garima Pulliam Hematocrit (Bld) [Volume fraction] 46.4 % Normal 4 2.0-54.0 [facility] Comment on above: Performed By: #### C BC ####[facility] Kj[address]omsler[address] [place] [address]Dr. Garima Pulliam Hemoglobin (Bld) [Mass/Vol] 15.7 g/dL Normal 14.0-18. 0 [facility] Comment on above: Performed By: #### C BC ####[facility] Zjtehwszxo44[address] [place] [address]Dr. Garima Pulliam IG # 0.04 10e3/ul Critically high 0.00-0.03 [facility] Comment on above: Performed By: #### C BC ####[facility] Thyj[address]ssah[address] [place], [place] [address]Dr. Garima Pulliam IG % 0.3 % Normal 0.0-0.5 [facility] Comment on above: Performed By: #### C BC ####[facility] [address] [place], [place] [address]Dr. Garima Pulliam LYMPH # 1.7 103/ul Normal 1.2-3.8 [facility] Comment on above: Performed By: #### C BC ####[facility] [address]ocfyiqx[address] [place], [place] [address]Dr. Garima Pulliam Lymphocytes/100 WBC (Bld) 11.5 % Critically low 20.5-6 0.0 [facility] Comment on above: Performed By: #### C BC ####[facility] [address]soqnz[address] [place], [place] [address]Dr. Garima Pulliam MANUAL DIFF REQ NO Normal [facility] Comment on above: Performed By: #### C BC ####[facility] Zipprfawyp[address] [place], [place] [address]Dr. Garima Pulliam MCH (RBC) [Entitic mass] 31.0 pg Normal 25.9-34.0 [facility] Comment on above: Performed By: #### C BC ####[facility] Eincrglbls[address] [place], [place] [address]Dr. Garima Pulliam MCHC (RBC) [Mass/Vol] 33.8 g/dL Normal 29.9-35.2 [facility] Comment on above: Performed By: #### C BC ####[facility] Lboazcbzat2461 [place] [phone]. Garima Pulliam MCV (RBC) [Entitic vol] 91.7 fL Normal 80.0-94.0 [facility] Comment on above: Performed By: #### C BC ####[facility] Eqqvguxpff6840 [place] [phone]. Garima Pulliam MONO # 0.8 103/ul Normal 0.3-0.8 [facility] Comment on above: Performed By: #### C BC ####[facility] Ngoypeswej0905 [place] [phone]. Garima Pulliam Monocytes/100 WBC (Bld) 5.2 % Normal 1.7-12.0 [facility] Comment on above: Performed By: #### C BC ####[facility] [address]sm[address]ceival[address] [place], [place] [address]Dr. Garima Pulliam NEUT # 11.7 103/ul Critically high 1.4-6.5 [facility] [place] Comment on above: Performed By: #### C BC ####[facility] Npugryvxwj1799 [place] [phone]. Garima Pulliam Neutrophils/100 WBC (Bld) 81.5 % Critically high 43.0- 75.0 [facility] Comment on above: Performed By: #### C BC ####[facility] Hifobvcrol[address] [place], [place] [address]Dr. Garima Pulliam Platelet mean volume (Bld) [Entitic vol] 8.6 fL Critically low 9.5-13.5 [facility] Comment on above: Performed By: #### C BC ####[facility] Wumptwzbws[address] [place] [phone]. Garima Pulliam PLT 191 103/ul Normal 150-450 [facility] Comment on above: Performed By: #### C BC ####[facility] [address]wrvitnmbi[address] [place], [place] [address]Dr. Garima Heraclio RBC 5.06 106/ul Normal 4.70-6.10 [facility] Comment on above: Performed By: #### C BC ####[facility] W[address]b4[address] [place], [place] [address]Fr. Garima Pulliam WBC 14.4 103/ul Critically high 4.0-11.0 [facility] [place] Comment on above: Performed By: #### C BC ####[facility] Seexbyzvud01[address] [place], [place] [address]Ib. Garima Pulliam Covid-19 PCR (CVDTBH)on 08-24 SARS-CoV-2 (COVID-19) RNA MARIE+probe Ql (Unsp spec) Not detected Normal NOT DETECTED [facility] Comment on above: Result Comment: When diagnostic testing is negative, the possibility of a false negative should be considered inthe context of a patient's recent exposures and the presence of clinical signs and symptomsconsistent with SARS-CoV-2.This test is not yet approved or cleared by the [place] FDA. When there are no FDA-approved or cleared tests available, and other criteria are met, FDA can make tests available under an emergency access mechanism called an Emergency Use Authorization (EUA). The EUA for this test is supported by the Technology Education Teacher of Health and Human Service's declaration that circumstances exist to justify the emergency use of in vitro diagnostics for the detection and/or diagnosis of the virus that causes COVID-19. This EUA will remain in effect for the duration of the COVID-19 declaration justifying emergency of IVDs, unless it is terminated or revoked by the FDA (after which the test may no longer be used). Performed By: #### C VDTBH ####[facility] [address]mquvia6[address] [place], [place] [address]Fq. Garima Pulliam LACTATE/LACTIC ACIDon 2021 Lactate [Moles/Vol] 1.0 mmol/L Normal 0.4-1.9 [facility] Comment on above: Performed By: #### L ACT ####[facility] Utkrfbzpev8[address] [place], [place] [address]Em. Garima Pulliam PROF CHEM 8 (BAS METB)on Anion gap [Moles/Vol] 11.6 mmol/L Normal [facility] Comment on above: Performed By: #### B MP, CMADM ####[facility] Chwypbxbgb4[address] [place] [id number]. Garima Pulliam Calcium [Mass/Vol] 9.2 mg/dL Normal 8.5-10.1 [facility] Comment on above: Performed By: #### B DAVID, CMADM ####[facility] Frcimugydy8[address] [place] [phone]. Garima Pulliam Chloride [Moles/Vol] 105 mmol/L Normal 98-107 [facility] Comment on above: Performed By: #### B DAVID, CMADM ####[facility] Sdxudrdwgo34[address] [place] [address]Dr. Garima Pulliam CO2 [Moles/Vol] 25.9 mmol/L Normal 21.0-32.0 [facility] [place] Comment on above: Performed By: #### B DAVID, CMADM ####[facility] X[address]edsyqi6[address] [place] [address]Dr. Garima Pulliam Creatinine [Mass/Vol] 0.72 mg/dL Normal 0.70-1.30 [facility] Comment on above: Performed By: #### B DAVID, CMADM ####[facility] [address]ourqsttdu[address] [place] [address]Dr. Garima Pulliam EGFR-AF IRISH >60 Normal >=60 [facility] [place] Comment on above: Performed By: #### B DAVID, CMADM ####[facility] Lohzqexsgn2404 [place] [address]Dr. Garima Pulliam EGFR-NON AF IRISH >60 Normal >=60 [facility] Comment on above: Performed By: #### B DAVID, CMADM ####[facility] Vtnuxxphgl4700 [place] [address]Dr. Garima Pulliam Glucose [Mass/Vol] 111 mg/dL Critically high 74-106 [facility] Comment on above: Performed By: #### B DAVID, CMADM ####[facility] Zqdgxwqnhx9352 [place] [address]Dr. Garima Pulliam Potassium [Moles/Vol] 3.5 mmol/L Normal 3.5-5.1 [facility] Comment on above: Performed By: #### B DAVID, CMADM ####[facility] Oggqsxfpmw4506 [place], [place] [address]Wx. Garima Pulliam Sodium [Moles/Vol] 139 mmol/L Normal 136-145 [facility] Comment on above: Performed By: #### B MP, CMADM ####[facility] Bqtrooypqd3086 [place], [place] [address]Gn. Garima Pulliam Urea nitrogen [Mass/Vol] 7.0 mg/dL Normal 7.0-18.0 [facility] Comment on above: Performed By: #### B MP, CMADM ####[facility] Lkrjvpxcat6446 [place], [place] [address]Ln. Garima Pulliam Urea nitrogen/Creatinine [Mass ratio] 9.7 mg/mg Normal [facility] Comment on above: Performed By: #### B DAVID, CMADM ####[facility] Dfdqfsfmcb0218 [place], [place] [address]Ad. Garima Pulliam XR CHEST 1 Von 09-12-2022 XR CHEST 1 V Normal [facility] Encounters Encounter Date Encounter Type Care Provider Facility Start: 04-04-2023 End: 04-05-2023 ambulatory KENTRELL CHAPIN Facility:[facility] Start: 03-30-2023 End: 03-31-2023 ambulatory KENTRELL CHAPIN Facility:[facility] Start: 03-27-2023 End: 03-28-2023 ambulatory OTONIEL HURT Facility:[facility] Start: 03-25-2023 End: 03-25-[address] NONE LISTED REQUEST Facility:[facility] Start: 03-22-2023 End: 03-22-[address] NONE LISTED REQUEST Facility:[facility] Start: 03-17-2023 End: 03-18-[address] NONE LISTED REQUEST Facility:[facility] Start: 03-16-2023 End: 03-16-[address] NONE LISTED REQUEST Facility:[facility] Start: 03-06-2023 End: 03-06-[address] NONE LISTED REQUEST Facility:[facility] Start: 01-13-2023 End: 01-13-[address] NONE LISTED REQUEST Facility:[facility] Start: 01-01-2023 End: 01-01-[address] MILADIS Glover Facility:[facility] Start: 12-25-2022 End: 12-26-2022 ambulatory KENTRELL CHAPIN Facility:[facility] Start: 12-10-2022 End: 12-10-2022 ambulatory KENTRELL CHAPIN Facility:[facility] Start: 11-27-2022 End: 11-27-2022 ambulatory LEIA ALLEN . Facility:[facility] Start: 11-25-2022 End: 11-25-[address] KANE POLLOCK . Facility:[facility] Start: 11-20-2022 End: 11-20-[address] KANE POLLOCK . Facility:[facility] Start: 10-01-2022 End: 10-02-[address] MILADIS MELARA . Facility:[facility] Start: 09-29-2022 End: 09-29-2022 ambulatory LEIA ALLEN . Facility:[facility] Start: 09-26-2022 End: 09-26-[address] MILADIS MELARA . Facility:[facility] Start: 09-15-2022 End: 09-16-[address] NASH STEVENS Facility:[facility] Start: 09-13-2022 End: 09-13-[address] SEBAS CABALLERO . Facility:[facility] Payers Date Payer Category Payer Unknown [id number] Medicaid [id number] 1960 Unknown [id number] 1960 Unknown [id number] 1954 Unknown [id number] .. [id number] 1954 Unknown [id number] ..[id number] 0.1.780901.3.579.2.59 1954 Unknown [id number] ..[id number] 0.1.329419.3.579.2.593 1954 Unknown [id number] ..[id number] 0.1.993437.3.579.2.593 1954 Unknown [id number] 2..84 0.1.846664.3.579.2.593 1954 Unknown [id number] 2..84 0.1.970646.3.579.2.593 1954 Unknown [id number] 2.16.84 0.1.821550.3.579.2.593 1954 Unknown [id number] 2.16.84 0.1.184320.3.579.2.593 1954 Unknown [id number] 2.16.84 0.1.937758.3.579.2.593 1954 Unknown [id number] 2.16.84 0.1.696256.3.579.2.593 1954 Unknown [id number] 2.16.84 0.1.590474.3.579.2.593 1954 Unknown [id number] 2.16.84 0.1.642677.3.579.2.593 1954 Unknown [id number] 2.16.84 0.1.119733.3.579.2.593 1954 Unknown [id number] 2.16.84 0.1.325951.3.579.2.593 1954 Unknown [id number] 2.16.84 0.1.399653.3.579.2.593 1954 Unknown [id number] 2.16.84 0.1.900527.3.579.2.593 1954 Unknown [id number] 2.16.84 0.1.742037.3.579.2.593 1954 Unknown [id number] 2.16.84 0.1.438963.3.579.2.593 1954 Unknown [id number] 2.16.84 0.1.107245.3.579.2.593 1954 Unknown [id number] 2.16.84 0.1.415566.3.579.2.593 Summary Purpose Family History No Family History Records Found Advance Directives No Advanced Directives Records Found Additional Source Comments (unrecognized sect ion and content) No Status Records Found INFORMATION SOURCE (unrecogn ized section and content) DATE CREATED AUTHOR 04/08/2023 [facility] FOR RECORDS PERTAINING TO PATIENTS WHO ARE OR HAVE BEEN ENROLLED IN A CHEMICAL DEPENDENCY/SUBSTANCEABUSE PROGRAM, SOME INFORMATION MAY BE OMITTED. This clinical summary was aggregated from multiple sources. Caution should be exercised in using it in the provision of clinical care. This summary normalizes information from multiple sources, and as a consequence, information in this document may materially change the coding, format and clinical context of patient data. In addition, data may be omitted in some cases. CLINICAL DECISIONS SHOULD BE BASED ON THE PRIMARY CLINICAL RECORDS. [facility] provides no warranty or guarantee of the accuracy or completeness of information in this document.
== END 2023-10-22 23:55 | disposition home or self-care (01) ==
PROVIDERS: Emergency Provider Internal Medicine
DX: J44.1 Chronic obstructive pulmonary disease with (acute) exacerbation (principal); F17.210 Nicotine dependence, cigarettes, uncomplicated; Z79.899 Other long term (current) drug therapy; Z87.01 Personal history of pneumonia (recurrent)
CPT/HCPCS: 36415; 71045; 80048; 84484; 85025; 93005; 94640; 96374; 99285; J2930

== ENCOUNTER 2023-10-24 21:30 | Emergency (ER) | payer MEDICARE, SELFPAY ==
[2023-10-24] VITALS (16 sets, daily range): BP systolic 160–177; BP diastolic 90–95; PULSE 69–100; RESP 22–28; TEMP 36.7; O2SAT 92–98; BMI 24.3
--- NOTE | 2023-10-24 22:23 | XR_ITS ---
[address] [address] Patient Name: CONSTANZA BARRETO MRN: [id number] date: 1955 Sex: M Assigned Patient Location: ER Current Patient Location: ER Accession/Order Number: [id number] Exam Date: 10/24/2023 22:40 Report Date: 10/24/2023 22:53 At the request of: KENTRELL CHAPIN Procedure: XR chest 1V EXAMINATION: XR chest 1V HISTORY: Shortness of breath COMPARISON: Chest x-ray 10/22/2023 TECHNIQUE: Portable chest FINDINGS: The lung parenchyma is free of consolidation or infiltrate. No pneumothorax or pleural effusion. The cardiac, mediastinal and hilar contours are normal. The visualized osseous structures exhibit no gross abnormality. XR/XR chest 1V IMPRESSION: No acute cardiopulmonary abnormality. Electronically authenticated by: REGINALDO LUCIO Date: 10/24/2023 22:53
--- NOTE | 2023-10-24 22:23 | ECG_ITS ---
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
--- NOTE | 2023-10-24 22:26 | ED.SOB1 ---
HPI - SOB/Dyspnea General Chief Complaint: Shortness of Breath/Dyspnea Stated Complaint: diff breathing Time Seen by Provider: 10/24/23 22:21 Source: patient Mode of arrival: Wheelchair History of Present Illness HPI Narrative: history of COPD. Returns to the ER complaining of shortness of breath. 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 Daily smoker. No chest pain or nausea MD elicited complaint: shortness of breath and cough Pertinent past history: COPD Related Data Home Medications Medication Instructions Recorded Confirmed losartan 25 mg tablet (Cozaar) 25 mg PO DAILY 10/22/23 10/22/23 omeprazole 20 mg capsule,delayed 20 mg PO DAILY 10/22/23 10/22/23 release Allergies Allergy/AdvReac Type Severity Reaction Status Date / Time No Known Drug Allergies Allergy Verified 10/16/23 01:52 Review of Systems ROS Status of ROS 10 or more systems reviewed and unremarkable except as noted in history and below [facility] Medical History (Updated 10/25/23 @ 00:43 by Júnior Andrade MD) COPD (chronic obstructive pulmonary disease) ?J44.9 - Chronic obstructive pulmonary disease, unspecified (ICD-10) RLL pneumonia ?J18.9 - Pneumonia, unspecified organism (ICD-10) Social History Smoking status: Current every day smoker Exam Constitutional Vital Signs, click to edit/add: Last Vital Signs Temp 98.1 F 10/24/23 21:38 Pulse 77 10/24/23 23:50 Resp 28 H 10/24/23 23:50 BP 160/90 H 10/24/23 21:44 Pulse Ox 92 L 10/24/23 22:50 O2 Del Method Room Air 10/24/23 21:56 Common normals: no apparent distress, average body habitus, oriented x3, no limitations, healthy appearing and alert [facility] Common normals: normocephalic Eye Common normals: EOMs intact bilaterally and conjunctivae normal Respiratory Common normals: normal respiratory effort, no retractions, no use of accessory muscles and clear to auscultation bilaterally Cardio Common normals: regular rate, regular rhythm, S1 normal heart sound and S2 normal heart sound GI Common normals: Normal to inspection, nondistended, normoactive bowel sounds present, soft to palpation and non-tender Extremity Common normals: normal to inspection and full ROM Neuro Common normals: oriented x3, CN's II-XII intact bilaterally, moves all extremities and no focal motor deficits Psych Appearance: grossly normal Course Vital Signs Vital signs: Vital Signs Temperature 98.1 F 10/24/23 21:38 Pulse Rate 100 H 10/24/23 21:38 Respiratory Rate 22 10/24/23 21:38 Blood Pressure 177/95 H 10/24/23 21:38 Pulse Oximetry 96 10/24/23 21:38 Oxygen Delivery Method Room Air 10/24/23 21:38 Temperature 98.1 F 10/24/23 21:38 Pulse Rate 77 10/24/23 23:50 Respiratory Rate 28 H 10/24/23 23:50 Blood Pressure 160/90 H 10/24/23 21:44 Pulse Oximetry 92 L 10/24/23 22:50 Oxygen Delivery Method Room Air 10/24/23 21:56 MDM - SOB/Dyspnea MDM Narrative Medical decision making narrative: patient daily smoker with past history of COPD. Seen often in the ER and improves after one NMT and steroids. Prescribed steroids for home but states he was not able to afford them. States he can purchase them now. In no distress on Arrival. Treated with solumedrol and one duoneb and now is ready to go home. labs with random blood sugar 280s. patient is not diabetic . Elevated BS most likely from recurrent steroids. Patient informed of the above and advised to follow up with his family doctor Lab Data Labs: Lab Results 10/24/23 Range/Units 21:54 WBC 11.3 H (4.0-11.0) 10^3/uL RBC 4.50 L (4.70-6.10) 10^6/uL Hgb 13.7 L (14.0-18.0) g/dL Hct 41.8 L (42.0-54.0) % MCV 92.9 (80.0-94.0) fL MCH 30.4 (25.9-34.0) pg MCHC 32.8 (29.9-35.2) g/dL RDW 13.2 (11.0-15.0) % Plt Count 217 (150-450) 10^3/uL MPV 9.2 L (9.5-13.5) fL Neut % (Auto) 70.2 (43.0-75.0) % Lymph % (Auto) 19.5 L (20.5-60.0) % [place] % (Auto) 7.4 (1.7-12.0) % Eos % (Auto) 2.4 (0.9-7.0) % Baso % (Auto) 0.2 (0.2-2.0) % Neut # (Auto) 7.9 H (1.4-6.5) 10^3/uL Lymph # (Auto) 2.2 (1.2-3.8) 10^3/uL [place] # (Auto) 0.8 (0.3-0.8) 10^3/uL Eos # (Auto) 0.3 (0.0-0.7) 10^3/uL Baso # (Auto) 0.0 (0.0-0.1) 10^3/uL Abs Immat Gran (auto) 0.03 (0.00-0.03) 10^3/uL Imm/Tot Granulo (auto) 0.3 (0.0-0.5) % Sodium 140 (136-145) mmol/L Potassium 3.4 L (3.5-5.1) mmol/L Chloride 104 (98-107) mmol/L Carbon Dioxide 27.6 (21.0-32.0) mmol/L Anion Gap 11.8 BUN 13.0 (7.0-18.0) mg/dL Creatinine 0.75 (0.70-1.30) mg/dL Est GFR ( Amer) >60 (>=60) Est GFR (Non-Af Amer) >60 (>=60) BUN/Creatinine Ratio 17.3 Glucose 288 H (74-106) mg/dL Calcium 8.8 (8.5-10.1) mg/dL Troponin I High Sens 13.9 (4.0-76.1) pg/mL Discharge Plan Discharge Chief Complaint: Shortness of Breath/Dyspnea Clinical Impression: Acute hyperglycemia, Acute exacerbation of chronic obstructive pulmonary disease (COPD) Patient Disposition: Home, Self-Care Prescriptions / Home Meds: No Action losartan [Cozaar] 25 mg tablet 25 mg PO DAILY omeprazole 20 mg capsule,delayed release(DR/EC) 20 mg PO DAILY Instructions: COPD (Chronic Obstructive Pulmonary Disease) (ED), Nondiabetic Hyperglycemia (ED) Additional Instructions: follow up with your doctor to have your blood sugar rechecked Stand Alone Forms: Portal Instructions Referrals: Physician,Non-Staff, MD [Primary Care Provider] - 1 week
[2023-10-24 22:34] LABS: Basophils Percent Auto 0.2 % (0.2-2.0); Eosinophils Absolute Auto 0.3 10^3/uL (0.0-0.7); Eosinophils Percent Auto 2.4 % (0.9-7.0); Hematocrit 41.8 % (42.0-54.0); Hemoglobin 13.7 g/dL (14.0-18.0); Immature Granulocytes Abs Auto 0.03 10^3/uL (0.00-0.03); Immature Granulocytes Pct Auto 0.3 % (0.0-0.5); Lymphocytes Absolute Auto 2.2 10^3/uL (1.2-3.8); Lymphocytes Percent Auto 19.5 % (20.5-60.0); Mean Corpuscular HGB Conc 32.8 g/dL (29.9-35.2); Mean Corpuscular Hemoglobin 30.4 pg (25.9-34.0); Mean Corpuscular Volume 92.9 fL (80.0-94.0); Mean Platelet Volume 9.2 fL (9.5-13.5); Monocytes Absolute Auto 0.8 10^3/uL (0.3-0.8); Monocytes Percent Auto 7.4 % (1.7-12.0); Neutrophils Absolute Auto 7.9 10^3/uL (1.4-6.5); Neutrophils Percent Auto 70.2 % (43.0-75.0); Platelet Count 217 10^3/uL (150-450); Red Cell Distribution Width 13.2 % (11.0-15.0); White Blood Count 11.3 10^3/uL (4.0-11.0)
[2023-10-24] MEDS: IPRATROPIUM/ALBUTEROL SULFATE 3 ML AMPUL.NEB IH (22:34)
[2023-10-24 22:46] LABS: Anion Gap 11.8; BUN Creatinine Ratio 17.3; Calcium 8.8 mg/dL (8.5-10.1); Carbon Dioxide 27.6 mmol/L (21.0-32.0); Chloride 104 mmol/L (98-107); Estimated GFR (African America >60 (>=60); Estimated GFR (Non-African Ame >60 (>=60); Glucose 288 mg/dL (74-106); Potassium 3.4 mmol/L (3.5-5.1); Sodium 140 mmol/L (136-145); Troponin I High Sensitivity 13.9 pg/mL (4.0-76.1)
[2023-10-24] MEDS: METHYLPREDNISOLONE SOD SUCC PF 125 MG/2 ML VIAL IVP (23:00)
[2023-10-25] VITALS (8 sets, daily range): PULSE 66–76; RESP 21–25; O2SAT 94
== END 2023-10-25 01:22 | disposition home or self-care (01) ==
PROVIDERS: Emergency Provider Internal Medicine
DX: J44.1 Chronic obstructive pulmonary disease with (acute) exacerbation (principal); R73.9 Hyperglycemia, unspecified; F17.210 Nicotine dependence, cigarettes, uncomplicated; Z87.01 Personal history of pneumonia (recurrent); Z79.899 Other long term (current) drug therapy
CPT/HCPCS: 36415; 71045; 80048; 84484; 85025; 93005; 94640; 99285; J2930

== ENCOUNTER 2023-10-26 22:43 | Emergency (ER) | payer MEDICARE, SELFPAY ==
[2023-10-26 22:46] VITALS: BP 175/105; PULSE 101; RESP 22; TEMP 36.6; O2SAT 94; BMI 55.0
[2023-10-26 23:29] VITALS: BP 169/91
[2023-10-26] MEDS: IPRATROPIUM/ALBUTEROL SULFATE 3 ML AMPUL.NEB IH (23:32)
[2023-10-26 23:35] VITALS: PULSE 81; RESP 18; O2SAT 93
[2023-10-26 23:39] VITALS: O2SAT 98
[2023-10-27] MEDS: PREDNISONE 20 MG TABLET 60 MG PO
--- NOTE | 2023-10-27 | ED.SOB1 ---
HPI - SOB/Dyspnea General Chief Complaint: Shortness of Breath/Dyspnea Stated Complaint: SOB Time Seen by Provider: 10/26/23 22:54 Mode of arrival: Wheelchair History of Present Illness HPI Narrative: history of COPD. daily smoker. Frequent ER visitor. Presents tonight complaining of shortness of breath. No chest pain. Seen 2-3 days ago for the same. No abdominal pain or nausea. Related Data Home Medications Medication Instructions Recorded Confirmed losartan 25 mg tablet (Cozaar) 25 mg PO DAILY 10/22/23 10/22/23 omeprazole 20 mg capsule,delayed 20 mg PO DAILY 10/22/23 10/22/23 release Allergies Allergy/AdvReac Type Severity Reaction Status Date / Time No Known Drug Allergies Allergy Verified 10/26/23 22:52 Review of Systems ROS Status of ROS 10 or more systems reviewed and unremarkable except as noted in history and below [facility] Medical History (Updated 10/27/23 @ 00:08 by Júnior Andrade MD) RLL pneumonia ?J18.9 - Pneumonia, unspecified organism (ICD-10) COPD (chronic obstructive pulmonary disease) ?J44.9 - Chronic obstructive pulmonary disease, unspecified (ICD-10) Social History Smoking status: Current every day smoker Exam Constitutional Vital Signs, click to edit/add: Last Vital Signs Temp 97.9 F 10/26/23 22:46 Pulse 77 10/27/23 00:17 Resp 18 10/26/23 23:35 BP 166/91 H 10/27/23 00:17 Pulse Ox 90 L 10/27/23 00:18 O2 Del Method Room Air 10/27/23 00:18 Common normals: no apparent distress, average body habitus, oriented x3, no limitations, alert and well nourished [facility] Common normals: normocephalic and head/scalp atraumatic Eye Common normals: EOMs intact bilaterally and conjunctivae normal Respiratory Common normals: normal respiratory effort, no retractions and no use of accessory muscles Cardio Common normals: regular rate, regular rhythm, S1 normal heart sound and S2 normal heart sound GI Common normals: Normal to inspection, nondistended, normoactive bowel sounds present, soft to palpation and non-tender Extremity Common normals: normal to inspection and full ROM Neuro Common normals: oriented x3, CN's II-XII intact bilaterally, moves all extremities and no focal motor deficits Psych Appearance: grossly normal Course Vital Signs Vital signs: Vital Signs Temperature 97.9 F 10/26/23 22:46 Pulse Rate 101 H 10/26/23 22:46 Respiratory Rate 22 10/26/23 22:46 Blood Pressure 175/105 H 10/26/23 22:46 Pulse Oximetry 94 L 10/26/23 22:46 Oxygen Delivery Method Room Air 10/26/23 22:46 Temperature 97.9 F 10/26/23 22:46 Pulse Rate 77 10/27/23 00:17 Respiratory Rate 18 10/26/23 23:35 Blood Pressure 166/91 H 10/27/23 00:17 Pulse Oximetry 90 L 10/27/23 00:18 Oxygen Delivery Method Room Air 10/27/23 00:18 MDM - SOB/Dyspnea MDM Narrative Medical decision making narrative: patient well known to the ER. Frequent visit for exacerbations. admitted once but remaining visits he was in no distress and improved after duoneb and solumedrol. He usually watches TV for a while and then goes home. He arrives in a similar fashion tonight. No distress. States he feels short of breath. seen here 10/05, 10/15, 10/22, 10/24 and tonight 10/26. Did not order cxray or labs for this visit. They were ordered with the past visits. Treated tonight with Duoneb and prednisone Discharge Plan Discharge Chief Complaint: Shortness of Breath/Dyspnea Clinical Impression: Acute exacerbation of chronic obstructive pulmonary disease (COPD) Patient Disposition: Home, Self-Care Prescriptions / Home Meds: No Action losartan [Cozaar] 25 mg tablet 25 mg PO DAILY omeprazole 20 mg capsule,delayed release(DR/EC) 20 mg PO DAILY Instructions: COPD (Chronic Obstructive Pulmonary Disease) (ED) Stand Alone Forms: Portal Instructions Referrals: Physician,Non-Staff, MD [Primary Care Provider] - 1 week Discharge Date/Time: 10/27/23 01:22
[2023-10-27 00:17] VITALS: BP 166/91; PULSE 77; O2SAT 90
[2023-10-27 00:18] VITALS: O2SAT 90
--- NOTE | 2023-10-27 00:18 | PC.NURSE ---
;patient mouth breathing, oxygen decreased to 90 while sleeping. easily arousable. does not wear c-pap at night
[2023-10-27] MEDS: ALBUTEROL SULFATE 200 PUFF/6.7 GM INHALER IH (01:07)
== END 2023-10-27 01:22 | disposition home or self-care (01) ==
LOC: ER 22:48
PROVIDERS: Emergency Provider Internal Medicine
DX: J44.1 Chronic obstructive pulmonary disease with (acute) exacerbation (principal); F17.200 Nicotine dependence, unspecified, uncomplicated; Z87.01 Personal history of pneumonia (recurrent)
CPT/HCPCS: 94640; 99283

== ENCOUNTER 2023-10-30 21:42 | Emergency (ER) | payer MEDICARE, SELFPAY ==
[2023-10-30] VITALS (7 sets, daily range): BP systolic 160–192; BP diastolic 76–124; PULSE 11–119; RESP 20–24; TEMP 36.7; O2SAT 90–95; BMI 23.7
--- NOTE | 2023-10-30 21:59 | ECG_ITS ---
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
--- NOTE | 2023-10-30 21:59 | XR_ITS ---
[address] [address] Patient Name: CONSTANZA BARRETO MRN: [id number] date: 1955 Sex: M Assigned Patient Location: ER Current Patient Location: ER Accession/Order Number: [id number] Exam Date: 10/30/2023 22:25 Report Date: 10/30/2023 22:49 At the request of: KENTRELL CHAPIN Procedure: XR chest 1V EXAM: XR chest 1V HISTORY: short of breath COMPARISON: Chest x-ray 10/24/2023 TECHNIQUE: Single AP radiograph of the chest FINDINGS: No pneumothorax, pleural effusion or consolidation. Normal heart size. No acute osseous abnormality. Multiple bilateral chronic appearing rib fractures. XR/XR chest 1V IMPRESSION: No acute cardiopulmonary process. Electronically authenticated by: ANAMARIA DUENAS Date: 10/30/2023 22:49
--- NOTE | 2023-10-30 22:00 | ED.SOB1 ---
HPI - SOB/Dyspnea General Chief Complaint: Shortness of Breath/Dyspnea Stated Complaint: SOB Time Seen by Provider: 10/30/23 21:55 Source: patient Mode of arrival: Wheelchair Limitations: no limitations History of Present Illness HPI Narrative: patient returns complaining of shortness of breath. feels this time it is worse. No fever. no chest pain. No associated abdominal pain or nausea. Dry cough. patient continues to smoke daily Related Data Home Medications Medication Instructions Recorded Confirmed losartan 25 mg tablet (Cozaar) 25 mg PO DAILY 10/22/23 10/22/23 omeprazole 20 mg capsule,delayed 20 mg PO DAILY 10/22/23 10/22/23 release Allergies Allergy/AdvReac Type Severity Reaction Status Date / Time No Known Drug Allergies Allergy Verified 10/26/23 22:52 Review of Systems ROS Status of ROS 10 or more systems reviewed and unremarkable except as noted in history and below Respiratory Reports: shortness of breath and cough [facility] Medical History (Updated 10/31/23 @ 00:05 by Júnior Andrade MD) RLL pneumonia ?J18.9 - Pneumonia, unspecified organism (ICD-10) COPD (chronic obstructive pulmonary disease) ?J44.9 - Chronic obstructive pulmonary disease, unspecified (ICD-10) Social History Smoking status: Current every day smoker Exam Constitutional Vital Signs, click to edit/add: Last Vital Signs Temp 98.1 F 10/30/23 21:53 Pulse 85 10/30/23 23:45 Resp 20 10/30/23 23:45 BP 160/76 H 10/30/23 23:01 Pulse Ox 90 L 10/30/23 23:45 O2 Del Method Room Air 10/30/23 22:18 O2 Flow Rate 2 10/30/23 23:01 Common normals: average body habitus General appearance: in distress HENMT Common normals: normocephalic and head/scalp atraumatic Eye Common normals: EOMs intact bilaterally and conjunctivae normal Respiratory Other: diminished breath sounds Cardio Common normals: regular rate, regular rhythm, S1 normal heart sound and S2 normal heart sound Extremity Common normals: normal to inspection and normal capillary refill Other: trace ankle edema bilat Neuro Common normals: oriented x3, CN's II-XII intact bilaterally, moves all extremities, no focal motor deficits and no sensory deficits noted Psych Appearance: grossly normal Course Vital Signs Vital signs: Vital Signs Pulse Rate 119 H 10/30/23 21:46 Respiratory Rate 24 10/30/23 21:46 Blood Pressure 192/124 H 10/30/23 21:46 Pulse Oximetry 90 L 10/30/23 21:46 Oxygen Delivery Method Room Air 10/30/23 21:46 Temperature 98.1 F 10/30/23 21:53 Pulse Rate 85 10/30/23 23:45 Respiratory Rate 20 10/30/23 23:45 Blood Pressure 160/76 H 10/30/23 23:01 Pulse Oximetry 90 L 10/30/23 23:45 Oxygen Delivery Method Room Air 10/30/23 22:18 Oxygen Delivery Flow Rate 2 10/30/23 23:01 MDM - SOB/Dyspnea MDM Narrative Medical decision making narrative: patient presents with exacerbation COPD. feeling better after intervention in the department and is requesting to go home. Discharged home to follow up with his family doctor Lab Data Labs: Lab Results 10/30/23 Range/Units 21:58 WBC 13.1 H (4.0-11.0) 10^3/uL RBC 4.95 (4.70-6.10) 10^6/uL Hgb 15.0 (14.0-18.0) g/dL Hct 45.8 (42.0-54.0) % MCV 92.5 (80.0-94.0) fL MCH 30.3 (25.9-34.0) pg MCHC 32.8 (29.9-35.2) g/dL RDW 13.2 (11.0-15.0) % Plt Count 220 (150-450) 10^3/uL MPV 8.9 L (9.5-13.5) fL Neut % (Auto) 67.0 (43.0-75.0) % Lymph % (Auto) 23.8 (20.5-60.0) % [place] % (Auto) 6.5 (1.7-12.0) % Eos % (Auto) 2.2 (0.9-7.0) % Baso % (Auto) 0.2 (0.2-2.0) % Neut # (Auto) 8.8 H (1.4-6.5) 10^3/uL Lymph # (Auto) 3.1 (1.2-3.8) 10^3/uL [place] # (Auto) 0.9 H (0.3-0.8) 10^3/uL Eos # (Auto) 0.3 (0.0-0.7) 10^3/uL Baso # (Auto) 0.0 (0.0-0.1) 10^3/uL Abs Immat Gran (auto) 0.04 H (0.00-0.03) 10^3/uL Imm/Tot Granulo (auto) 0.3 (0.0-0.5) % Sodium 139 (136-145) mmol/L Potassium 3.7 (3.5-5.1) mmol/L Chloride 101 (98-107) mmol/L Carbon Dioxide 31.7 (21.0-32.0) mmol/L Anion Gap 10.0 BUN 9.0 (7.0-18.0) mg/dL Creatinine 0.76 (0.70-1.30) mg/dL Est GFR ( Amer) >60 (>=60) Est GFR (Non-Af Amer) >60 (>=60) BUN/Creatinine Ratio 11.8 Glucose 170 H (74-106) mg/dL Calcium 9.3 (8.5-10.1) mg/dL Troponin I High Sens 16.0 (4.0-76.1) pg/mL NT-Pro-B Natriuret Pep 121.0 (<=900.0) pg/mL Discharge Plan Discharge Chief Complaint: Shortness of Breath/Dyspnea Clinical Impression: Acute exacerbation of chronic obstructive pulmonary disease (COPD) Patient Disposition: Home, Self-Care Prescriptions / Home Meds: No Action losartan [Cozaar] 25 mg tablet 25 mg PO DAILY omeprazole 20 mg capsule,delayed release(DR/EC) 20 mg PO DAILY Instructions: COPD (Chronic Obstructive Pulmonary Disease) (ED) Stand Alone Forms: Portal Instructions Referrals: Physician,Non-Staff, MD [Primary Care Provider] - 1 week
[2023-10-30 22:07] LABS: Basophils Percent Auto 0.2 % (0.2-2.0); Eosinophils Absolute Auto 0.3 10^3/uL (0.0-0.7); Eosinophils Percent Auto 2.2 % (0.9-7.0); Hematocrit 45.8 % (42.0-54.0); Immature Granulocytes Abs Auto 0.04 10^3/uL (0.00-0.03); Immature Granulocytes Pct Auto 0.3 % (0.0-0.5); Lymphocytes Absolute Auto 3.1 10^3/uL (1.2-3.8); Lymphocytes Percent Auto 23.8 % (20.5-60.0); Mean Corpuscular HGB Conc 32.8 g/dL (29.9-35.2); Mean Corpuscular Hemoglobin 30.3 pg (25.9-34.0); Mean Corpuscular Volume 92.5 fL (80.0-94.0); Mean Platelet Volume 8.9 fL (9.5-13.5); Monocytes Absolute Auto 0.9 10^3/uL (0.3-0.8); Monocytes Percent Auto 6.5 % (1.7-12.0); Neutrophils Absolute Auto 8.8 10^3/uL (1.4-6.5); Platelet Count 220 10^3/uL (150-450); Red Blood Count 4.95 10^6/uL (4.70-6.10); Red Cell Distribution Width 13.2 % (11.0-15.0); White Blood Count 13.1 10^3/uL (4.0-11.0)
[2023-10-30 22:25] LABS: BUN Creatinine Ratio 11.8; Calcium 9.3 mg/dL (8.5-10.1); Carbon Dioxide 31.7 mmol/L (21.0-32.0); Chloride 101 mmol/L (98-107); Estimated GFR (African America >60 (>=60); Estimated GFR (Non-African Ame >60 (>=60); Glucose 170 mg/dL (74-106); Potassium 3.7 mmol/L (3.5-5.1); Sodium 139 mmol/L (136-145)
[2023-10-30] MEDS: IPRATROPIUM/ALBUTEROL SULFATE 3 ML AMPUL.NEB IH ×2 (22:29→23:45)
[2023-10-30] MEDS: METHYLPREDNISOLONE SOD SUCC PF 125 MG/2 ML VIAL IVP (22:34)
== END 2023-10-31 00:30 | disposition home or self-care (01) ==
PROVIDERS: Emergency Provider Internal Medicine
DX: J44.1 Chronic obstructive pulmonary disease with (acute) exacerbation (principal); R06.02 Shortness of breath; F17.200 Nicotine dependence, unspecified, uncomplicated; Z87.01 Personal history of pneumonia (recurrent)
CPT/HCPCS: 36415; 71045; 80048; 83880; 84484; 85025; 93005; 94640; 99285; J2930

== ENCOUNTER 2023-11-02 15:42 | Emergency (ER) | payer MEDICARE, SELFPAY ==
[2023-11-02 15:47] VITALS: BP 177/99; PULSE 96; RESP 18; TEMP 37.2; O2SAT 95; BMI 29.9
[2023-11-02 15:56] VITALS: O2SAT 96
--- NOTE | 2023-11-02 16:14 | ED_ITS ---
HPI - SOB/Dyspnea General Chief Complaint: Shortness of Breath/Dyspnea Stated Complaint: NAUSEA, DIFF BREATHING Time Seen by Provider: 11/02/23 16:07 Source: patient Mode of arrival: Wheelchair Limitations: no limitations History of Present Illness HPI Narrative: this patient, well-known to this department for evaluation of shortness of breath. He states that he used a nebulizer approximate hour before coming to the hospital. He's not been running a fever. He's been here three or four times in the last week or two. I review the chart to see if he's had Covid or influenza testing. He's not had nausea vomiting diarrhea. He's not had heaviness or pressure discomfort in his chest. He does not have a pulse oximeter at home. He doesn't believe he is on any antibiotics or steroids at this time. He does receive primary care at the [facility] in [place]. His last visit there was a couple months ago. He is not out of his current medications. Related Data Home Medications Medication Instructions Recorded Confirmed losartan 25 mg tablet (Cozaar) 25 mg PO DAILY 10/22/23 11/02/23 omeprazole 20 mg capsule,delayed 20 mg PO DAILY 10/22/23 11/02/23 release albuterol sulfate 2.5 mg/3 mL 2.5 mg inhalation Q6H 11/02/23 11/02/23 (0.083 %) solution for nebulization Allergies Allergy/AdvReac Type Severity Reaction Status Date / Time No Known Drug Allergies Allergy Verified 10/26/23 22:52 [facility] Medical History (Updated 11/02/23 @ 18:05 by Fabricio Byrd MD) RLL pneumonia ?J18.9 - Pneumonia, unspecified organism (ICD-10) COPD (chronic obstructive pulmonary disease) ?J44.9 - Chronic obstructive pulmonary disease, unspecified (ICD-10) Social History Smoking status: Current every day smoker Exam Narrative Exam Narrative: awake alert no apparent distress frustrated rate eighteen pulse oximetry ninety- six percent on room air. He is well-hydrated well-nourished appears in no distress he can complete sentences. He is not coughing or bronchospastic. His lungs were clear with wheezing only noted with forced exhalation and coughing maneuvers. Aeration is adequate. Heart sounds are normal with no murmur. This extremities do not show any edema phlebitis or erythema. Neurological his cognition and mentation is normal he looks well. His memory is very good. Constitutional Vital Signs, click to edit/add: Last Vital Signs Temp 98.9 F 11/02/23 15:47 Pulse 96 H 11/02/23 15:47 Resp 18 11/02/23 15:47 BP 177/99 H 11/02/23 15:47 Pulse Ox 96 11/02/23 15:56 O2 Del Method Room Air 11/02/23 15:56 Course Vital Signs Vital signs: Vital Signs Temperature 98.9 F 11/02/23 15:47 Pulse Rate 96 H 11/02/23 15:47 Respiratory Rate 18 11/02/23 15:47 Blood Pressure 177/99 H 11/02/23 15:47 Pulse Oximetry 95 11/02/23 15:47 Oxygen Delivery Method Room Air 11/02/23 15:47 Temperature 98.9 F 11/02/23 15:47 Pulse Rate 96 H 11/02/23 15:47 Respiratory Rate 18 11/02/23 15:47 Blood Pressure 177/99 H 11/02/23 15:47 Pulse Oximetry 96 11/02/23 15:56 Oxygen Delivery Method Room Air 11/02/23 15:56 MDM - SOB/Dyspnea MDM Narrative Medical decision making narrative: the patient presents today well known to myself. Old records were reviewed. Repeat Covid testing today was negative. Chest x-ray does not show any acute evolutionary process. I believe he is stable for outpatient management. He does have a primary care physician at the [facility] in [place]. He has his medications. Lab Data Labs: Lab Results 11/02/23 Range/Units 16:35 SARS-CoV-2 (PCR) Negative (NEGATIVE) Discharge Plan Discharge Chief Complaint: Shortness of Breath/Dyspnea Clinical Impression: Chronic obstructive pulmonary disease Patient Disposition: Home, Self-Care Time of Disposition Decision: 18:09 Prescriptions / Home Meds: No Action losartan [Cozaar] 25 mg tablet 25 mg PO DAILY omeprazole 20 mg capsule,delayed release(DR/EC) 20 mg PO DAILY albuterol sulfate 2.5 mg /3 mL (0.083 %) solution for nebulization 2.5 mg inhalation Q6H Stand Alone Forms: Portal Instructions Referrals: Physician,Non-Staff, MD [Primary Care Provider] - 1 week
--- NOTE | 2023-11-02 16:27 | XR_ITS ---
The [address] [address] Patient Name: CONSTANZA BARRETO MRN: [id number] date: 1955 Sex: M Assigned Patient Location: ER Current Patient Location: ER Accession/Order Number: [id number] Exam Date: 11/02/2023 16:38 Report Date: 11/02/2023 17:04 At the request of: ANIYAH LEO Procedure: XR chest 1V EXAM: XR chest 1V HISTORY: short of breath for few days. COMPARISON: 10/30/2023 TECHNIQUE: AP upright portable chest x-ray FINDINGS: The patient is rotated to the right. The heart is not enlarged and the vasculature is not distended. No acute infiltrate, effusion or pneumothorax is identified. Multiple old rib fractures are noted on the left. A calcified lymph node is noted in the subcarinal region. The osseous structures otherwise grossly intact. XR/XR chest 1V IMPRESSION: No acute infiltrate or evidence of cardiac decompensation. The study is a bit limited by patient rotation. The overall appearance is essentially unchanged. Electronically authenticated by: DOMI ABBASI Date: 11/02/2023 17:04
[2023-11-02] MEDS: IPRATROPIUM/ALBUTEROL SULFATE 3 ML AMPUL.NEB IH (16:50)
[2023-11-02 17:21] LABS: SARS-CoV-2 Ag NEGATIVE (NEGATIVE)
--- NOTE | 2023-11-02 18:19 | PC.NURSE ---
Pt reports improvement in his breathing after neb tx
[2023-11-03 15:48] LABS: SARS-CoV-2 NAA NOT DETECTED (NOT DETECTE)
== END 2023-11-02 18:24 | disposition home or self-care (01) ==
PROVIDERS: Emergency Provider Emergency Medicine Emergency Medical Services
DX: J44.9 Chronic obstructive pulmonary disease, unspecified (principal); Z87.01 Personal history of pneumonia (recurrent); Z79.899 Other long term (current) drug therapy; F17.210 Nicotine dependence, cigarettes, uncomplicated; Z20.822 Contact with and (suspected) exposure to COVID-19
CPT/HCPCS: 71045; 87635; 87811; 94640; 99284

== ENCOUNTER 2023-11-24 16:05 | Emergency (ER) | payer MEDICARE, SELFPAY ==
[2023-11-24] VITALS (13 sets, daily range): BP systolic 166–177; BP diastolic 87–91; PULSE 78–85; RESP 18–27; TEMP 36.9; O2SAT 92–96; BMI 25.0
--- NOTE | 2023-11-24 16:29 | ED.GENADUL1 ---
Documented by User: Amber Verdugo 11/24/23 19:30 HPI - General Adult General Chief complaint: Shortness of Breath/Dyspnea Stated complaint: SHORTNESS OF BREATH Time Seen by Provider: 11/24/23 16:29 Source: patient Mode of arrival: Wheelchair Limitations: no limitations History of Present Illness HPI narrative: 68 year old male presents to the ED for cough, SOB. Onset was within the past 1-2 days. Reports hx COPD. Denies fever, chills, edema, N/V/D. Denies increased sputum production. Related Data Home Medications Medication Instructions Recorded Confirmed losartan 25 mg tablet (Cozaar) 25 mg PO DAILY 10/22/23 11/02/23 omeprazole 20 mg capsule,delayed 20 mg PO DAILY 10/22/23 11/02/23 release albuterol sulfate 2.5 mg/3 mL 2.5 mg inhalation Q6H 11/02/23 11/02/23 (0.083 %) solution for nebulization Allergies Allergy/AdvReac Type Severity Reaction Status Date / Time No Known Drug Allergies Allergy Verified 11/24/23 16:17 Review of Systems ROS Constitutional Denies: fever, chills or fatigue Ears, nose, mouth, and throat Denies: throat pain, neck pain, ear pain, nasal discharge or nasal congestion Cardiovascular Denies: chest pain, edema or lightheadedness Respiratory Reports: shortness of breath and cough; Denies: change in phlegm color or coughing up blood Gastrointestinal Denies: abdominal pain, nausea, vomiting or diarrhea Musculoskeletal Denies: back pain or neck pain Integumentary/Breast Denies: rash Neurological Denies: headache PFSH PFSH Medical History (Updated 11/24/23 @ 18:14 by Amber Verdugo) RLL pneumonia ?J18.9 - Pneumonia, unspecified organism (ICD-10) COPD (chronic obstructive pulmonary disease) ?J44.9 - Chronic obstructive pulmonary disease, unspecified (ICD-10) Social History Smoking status: Current every day smoker Exam Constitutional Vital Signs, click to edit/add: Last Vital Signs Temp 98.5 F 11/24/23 16:17 Pulse 79 11/24/23 17:23 Resp 27 H 11/24/23 17:23 BP 172/90 H 11/24/23 17:00 Pulse Ox 92 L 11/24/23 17:23 O2 Del Method Room Air 11/24/23 16:53 Common normals: no apparent distress and oriented x3 General appearance: cooperative; not in distress and not ill appearing [facility] Common normals: normocephalic Nose: external nose normal External ear: external ears normal Mouth: oral and palatal mucosa normal and lip normal Eye Common normals: conjunctivae normal and no scleral icterus Chest Chest: symmetrical chest wall rise Respiratory Effort & inspection: able to speak in complete sentences and symmetric chest movement Auscultation: wheezes and diminished lung sounds Cardio Common normals: regular rate and regular rhythm GI Common normals: soft to palpation and non-tender Extremity General: no edema Neuro Common normals: oriented x3 Sensorium/orientation: awake and alert Speech: speech normal Course Vital Signs Vital signs: Vital Signs Temperature 98.5 F 11/24/23 16:17 Pulse Rate 85 11/24/23 16:17 Respiratory Rate 18 11/24/23 16:17 Blood Pressure 177/91 H 11/24/23 16:17 Pulse Oximetry 94 L 11/24/23 16:17 Oxygen Delivery Method Room Air 11/24/23 16:17 Temperature 98.5 F 11/24/23 16:17 Pulse Rate 79 11/24/23 17:23 Respiratory Rate 27 H 11/24/23 17:23 Blood Pressure 172/90 H 11/24/23 17:00 Pulse Oximetry 92 L 11/24/23 17:23 Oxygen Delivery Method Room Air 11/24/23 16:53 Medical Decision Making MDM Narrative Medical decision making narrative: The patient declined Covid-19 and influenza testing today. Chest x-ray was negative for acute findings. CBC, BMP, troponin, and BNP were unremarkable. He was given solumedrol and DuoNeb here with improvement. He declined prescriptions today. He was offered a prescription for prednisone which he declined. He was encouraged to follow up with his pcp for a recheck, further evaluation and treatment. Return precautions were discussed. Differential Diagnosis Differential Diagnosis: COPD exacerbation, pneumonia, Covid-19, influenza Medical Records Medical records reviewed: Yes I reviewed the patient's medical records Lab Data Lab results reviewed: Yes I reviewed the patient's lab results Labs: Lab Results 11/24/23 Range/Units 16:42 WBC 7.3 (4.0-11.0) 10^3/uL RBC 4.31 L (4.70-6.10) 10^6/uL Hgb 13.0 L (14.0-18.0) g/dL Hct 40.1 L (42.0-54.0) % MCV 93.0 (80.0-94.0) fL MCH 30.2 (25.9-34.0) pg MCHC 32.4 (29.9-35.2) g/dL RDW 13.3 (11.0-15.0) % Plt Count 207 (150-450) 10^3/uL MPV 9.1 L (9.5-13.5) fL Neut % (Auto) 75.3 H (43.0-75.0) % Lymph % (Auto) 14.9 L (20.5-60.0) % [place] % (Auto) 7.5 (1.7-12.0) % Eos % (Auto) 2.1 (0.9-7.0) % Baso % (Auto) 0.1 L (0.2-2.0) % Neut # (Auto) 5.5 (1.4-6.5) 10^3/uL Lymph # (Auto) 1.1 L (1.2-3.8) 10^3/uL [place] # (Auto) 0.6 (0.3-0.8) 10^3/uL Eos # (Auto) 0.2 (0.0-0.7) 10^3/uL Baso # (Auto) 0.0 (0.0-0.1) 10^3/uL Abs Immat Gran (auto) 0.01 (0.00-0.03) 10^3/uL Imm/Tot Granulo (auto) 0.1 (0.0-0.5) % Sodium 139 (136-145) mmol/L Potassium 3.9 (3.5-5.1) mmol/L Chloride 104 (98-107) mmol/L Carbon Dioxide 27.3 (21.0-32.0) mmol/L Anion Gap 11.6 BUN 8.0 (7.0-18.0) mg/dL Creatinine 0.84 (0.70-1.30) mg/dL Est GFR ( Amer) >60 (>=60) Est GFR (Non-Af Amer) >60 (>=60) BUN/Creatinine Ratio 9.5 Glucose 235 H (74-106) mg/dL Calcium 9.0 (8.5-10.1) mg/dL Troponin I High Sens 11.9 (4.0-76.1) pg/mL NT-Pro-B Natriuret Pep 166.0 (<=900.0) pg/mL Imaging Data Chest x-ray: Attestation: I have reviewed the pertinent imaging results. Radiologist's impression: Procedure: XR chest 1V EXAM: XR chest 1V HISTORY: . cough, SOB . COMPARISON: 11/02/2023 Findings: Heart and vascularity are unremarkable. Lungs are free of focal infiltrates. Old healed rib fractures are noted on the left posteriorly. EKG leads overlie the chest. XR/XR chest 1V Impression: No acute heart or lung disease identified. Electronically authenticated by: REGINALDO DAS Date: 11/24/2023 17:39 ECG Data Attestation: ?I have reviewed the pertinent ECG results. (EKG interpretation. Normal sinus rhythm 81 beats a minute. Normal axis deviation. No acute ST elevation, no acute ectopy. QTC of 423. Questionable diffuse [address] depression) Interpretation: Measurements Intervals [place] Rate: 81 P: 81 NC: 202 QRS: 66 QRSD: 102 T: 63 QT: 386 QTc: 423 Interpretive Statements 1100 Sinus rhythm 3434 Septal myocardial infarction, age undetermined 9150 abnormal ECG No previous ECG available for comparison Discharge Plan Discharge Chief Complaint: Shortness of Breath/Dyspnea Clinical Impression: Acute exacerbation of chronic obstructive pulmonary disease (COPD) Patient Disposition: Home, Self-Care Time of Disposition Decision: 18:13 Condition: Good Mode of Transportation: Private Vehicle Prescriptions / Home Meds: No Action losartan [Cozaar] 25 mg tablet 25 mg PO DAILY omeprazole 20 mg capsule,delayed release(DR/EC) 20 mg PO DAILY albuterol sulfate 2.5 mg /3 mL (0.083 %) solution for nebulization 2.5 mg inhalation Q6H Instructions: COPD (Chronic Obstructive Pulmonary Disease) (ED) Additional Instructions: Return to the ER if your condition worsens. Stand Alone Forms: Portal Instructions Referrals: Physician,Non-Staff, MD [Primary Care Provider] - As soon as possible Discharge Date/Time: 11/24/23 18:21 Documented by User: Abiodun Crum MD 11/24/23 20:10 HPI - General Adult General Chief complaint: Shortness of Breath/Dyspnea Stated complaint: SHORTNESS OF BREATH Time Seen by Provider: 11/24/23 16:29 Related Data Home Medications Medication Instructions Recorded Confirmed losartan 25 mg tablet (Cozaar) 25 mg PO DAILY 10/22/23 11/02/23 omeprazole 20 mg capsule,delayed 20 mg PO DAILY 10/22/23 11/02/23 release albuterol sulfate 2.5 mg/3 mL 2.5 mg inhalation Q6H 11/02/23 11/02/23 (0.083 %) solution for nebulization Allergies Allergy/AdvReac Type Severity Reaction Status Date / Time No Known Drug Allergies Allergy Verified 11/24/23 16:17 [facility] Medical History (Updated 11/24/23 @ 18:14 by Amber Verdugo) RLL pneumonia ?J18.9 - Pneumonia, unspecified organism (ICD-10) COPD (chronic obstructive pulmonary disease) ?J44.9 - Chronic obstructive pulmonary disease, unspecified (ICD-10) Social History Smoking status: Current every day smoker Exam Constitutional Vital Signs, click to edit/add: Last Vital Signs Temp 98.5 F 11/24/23 16:17 Pulse 79 11/24/23 17:23 Resp 27 H 11/24/23 17:23 BP 172/90 H 11/24/23 17:00 Pulse Ox 92 L 11/24/23 17:23 O2 Del Method Room Air 11/24/23 16:53 Course Vital Signs Vital signs: Vital Signs Temperature 98.5 F 11/24/23 16:17 Pulse Rate 85 11/24/23 16:17 Respiratory Rate 18 11/24/23 16:17 Blood Pressure 177/91 H 11/24/23 16:17 Pulse Oximetry 94 L 11/24/23 16:17 Oxygen Delivery Method Room Air 11/24/23 16:17 Temperature 98.5 F 11/24/23 16:17 Pulse Rate 79 11/24/23 17:23 Respiratory Rate 27 H 11/24/23 17:23 Blood Pressure 172/90 H 11/24/23 17:00 Pulse Oximetry 92 L 11/24/23 17:23 Oxygen Delivery Method Room Air 11/24/23 16:53 Medical Decision Making MDM Narrative Medical decision making narrative: The patient declined Covid-19 and influenza testing today. Chest x-ray was negative for acute findings. CBC, BMP, troponin, and BNP were unremarkable. He was given solumedrol and DuoNeb here with improvement. He declined prescriptions today. He was offered a prescription for prednisone which he declined. He was encouraged to follow up with his pcp for a recheck, further evaluation and treatment. Return precautions were discussed. I, Dr Crum, have reviewed the above progress note and course of action in the ER; agree with the above. I have personally seen and evaluated this patient, gone over history and physical, and discussed disposition and treatment plan with the patient. Lab Data Labs: Lab Results 11/24/23 Range/Units 16:42 WBC 7.3 (4.0-11.0) 10^3/uL RBC 4.31 L (4.70-6.10) 10^6/uL Hgb 13.0 L (14.0-18.0) g/dL Hct 40.1 L (42.0-54.0) % MCV 93.0 (80.0-94.0) fL MCH 30.2 (25.9-34.0) pg MCHC 32.4 (29.9-35.2) g/dL RDW 13.3 (11.0-15.0) % Plt Count 207 (150-450) 10^3/uL MPV 9.1 L (9.5-13.5) fL Neut % (Auto) 75.3 H (43.0-75.0) % Lymph % (Auto) 14.9 L (20.5-60.0) % [place] % (Auto) 7.5 (1.7-12.0) % Eos % (Auto) 2.1 (0.9-7.0) % Baso % (Auto) 0.1 L (0.2-2.0) % Neut # (Auto) 5.5 (1.4-6.5) 10^3/uL Lymph # (Auto) 1.1 L (1.2-3.8) 10^3/uL [place] # (Auto) 0.6 (0.3-0.8) 10^3/uL Eos # (Auto) 0.2 (0.0-0.7) 10^3/uL Baso # (Auto) 0.0 (0.0-0.1) 10^3/uL Abs Immat Gran (auto) 0.01 (0.00-0.03) 10^3/uL Imm/Tot Granulo (auto) 0.1 (0.0-0.5) % Sodium 139 (136-145) mmol/L Potassium 3.9 (3.5-5.1) mmol/L Chloride 104 (98-107) mmol/L Carbon Dioxide 27.3 (21.0-32.0) mmol/L Anion Gap 11.6 BUN 8.0 (7.0-18.0) mg/dL Creatinine 0.84 (0.70-1.30) mg/dL Est GFR ( Amer) >60 (>=60) Est GFR (Non-Af Amer) >60 (>=60) BUN/Creatinine Ratio 9.5 Glucose 235 H (74-106) mg/dL Calcium 9.0 (8.5-10.1) mg/dL Troponin I High Sens 11.9 (4.0-76.1) pg/mL NT-Pro-B Natriuret Pep 166.0 (<=900.0) pg/mL ECG Data Attestation: I personally reviewed and interpreted this ECG as follows: (EKG interpretation. Normal sinus rhythm 81 beats a minute. Normal axis deviation. No acute ST elevation, no acute ectopy. QTC of 423. Questionable diffuse [address] depression) Discharge Plan Discharge Chief Complaint: Shortness of Breath/Dyspnea Clinical Impression: Acute exacerbation of chronic obstructive pulmonary disease (COPD) Patient Disposition: Home, Self-Care Time of Disposition Decision: 18:13 Condition: Good Mode of Transportation: Private Vehicle Prescriptions / Home Meds: No Action losartan [Cozaar] 25 mg tablet 25 mg PO DAILY omeprazole 20 mg capsule,delayed release(DR/EC) 20 mg PO DAILY albuterol sulfate 2.5 mg /3 mL (0.083 %) solution for nebulization 2.5 mg inhalation Q6H Instructions: COPD (Chronic Obstructive Pulmonary Disease) (ED) Additional Instructions: Return to the ER if your condition worsens. Stand Alone Forms: Portal Instructions Referrals: Physician,Non-Staff, MD [Primary Care Provider] - As soon as possible Discharge Date/Time: 11/24/23 18:21
--- NOTE | 2023-11-24 16:33 | ECG_ITS ---
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
[2023-11-24] MEDS: IPRATROPIUM/ALBUTEROL SULFATE 3 ML AMPUL.NEB IH (16:52)
[2023-11-24 16:53] LABS: Basophils Percent Auto 0.1 % (0.2-2.0); Eosinophils Absolute Auto 0.2 10^3/uL (0.0-0.7); Eosinophils Percent Auto 2.1 % (0.9-7.0); Hematocrit 40.1 % (42.0-54.0); Immature Granulocytes Abs Auto 0.01 10^3/uL (0.00-0.03); Immature Granulocytes Pct Auto 0.1 % (0.0-0.5); Lymphocytes Absolute Auto 1.1 10^3/uL (1.2-3.8); Lymphocytes Percent Auto 14.9 % (20.5-60.0); Mean Corpuscular HGB Conc 32.4 g/dL (29.9-35.2); Mean Corpuscular Hemoglobin 30.2 pg (25.9-34.0); Mean Platelet Volume 9.1 fL (9.5-13.5); Monocytes Absolute Auto 0.6 10^3/uL (0.3-0.8); Monocytes Percent Auto 7.5 % (1.7-12.0); Neutrophils Absolute Auto 5.5 10^3/uL (1.4-6.5); Neutrophils Percent Auto 75.3 % (43.0-75.0); Platelet Count 207 10^3/uL (150-450); Red Blood Count 4.31 10^6/uL (4.70-6.10); Red Cell Distribution Width 13.3 % (11.0-15.0); White Blood Count 7.3 10^3/uL (4.0-11.0)
--- NOTE | 2023-11-24 16:59 | XR_ITS ---
The [address] [address] Patient Name: CONSTANZA BARRETO MRN: [id number] date: 1955 Sex: M Assigned Patient Location: ER Current Patient Location: ED.MAIN Accession/Order Number: [id number] Exam Date: 11/24/2023 16:55 Report Date: 11/24/2023 17:39 At the request of: JACKY GODFREY Procedure: XR chest 1V EXAM: XR chest 1V HISTORY: . cough, SOB . COMPARISON: 11/02/2023 Findings: Heart and vascularity are unremarkable. Lungs are free of focal infiltrates. Old healed rib fractures are noted on the left posteriorly. EKG leads overlie the chest. XR/XR chest 1V Impression: No acute heart or lung disease identified. Electronically authenticated by: REGINALDO DAS Date: 11/24/2023 17:39
[2023-11-24] MEDS: METHYLPREDNISOLONE SOD SUCC PF 125 MG/2 ML VIAL IVP (17:00)
[2023-11-24 17:15] LABS: Anion Gap 11.6; BUN Creatinine Ratio 9.5; Carbon Dioxide 27.3 mmol/L (21.0-32.0); Chloride 104 mmol/L (98-107); Estimated GFR (African America >60 (>=60); Estimated GFR (Non-African Ame >60 (>=60); Glucose 235 mg/dL (74-106); Potassium 3.9 mmol/L (3.5-5.1); Sodium 139 mmol/L (136-145); Troponin I High Sensitivity 11.9 pg/mL (4.0-76.1)
== END 2023-11-24 18:21 | disposition home or self-care (01) ==
PROVIDERS: Nurse Practitioner Family; Emergency Provider Emergency Medicine
DX: J44.1 Chronic obstructive pulmonary disease with (acute) exacerbation (principal); Z79.899 Other long term (current) drug therapy; Z87.01 Personal history of pneumonia (recurrent)
CPT/HCPCS: 36415; 71045; 80048; 83880; 84484; 85025; 87804; 87811; 93005; 94640; 96374; 99285; J2930

== ENCOUNTER 2023-12-15 22:06 | Emergency (ER) | payer MEDICARE, SELFPAY ==
[2023-12-15] VITALS (13 sets, daily range): BP systolic 164–172; BP diastolic 90–138; PULSE 80–87; RESP 14–28; O2SAT 94–97; BMI 25.0
--- OUTSIDE RECORDS SUMMARY | 2023-12-15 22:13 | XMS_ITS | CCD ---
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 Name Role Phone REQUEST, DR NONE LISTED [...] Consulting Unavailable TIFFANY ., LEIA Admitting Unavailable TAZ ., PALMIRA FOX Consulting Unavailheriberto ALLEN ., [...] LISTED Primary Care Unavaila ble TIFFANY ., LEIA Consulting Unavailable MARKER ., DR REDDING Attending [...] ., PALMIRA FOX Consulting Unavailabl e REGINALDO LUCIO Consulting Unavailable SISTER, SIMONE Consulting Unavailable AIMEE ., MARIYA Consulting Unavailable Allergies Allergy Classification Reported Allergen(s) Allergy Type Date of Onset Reaction(s) Facility (1 source) Penicillin Drug Allergy [facility] Repository Problems Active Problems Problem Classification [...] 03-27-2023 Episodic Other aftercare (1 source) Other intermediate card tender (current) drug therapy; Translations: [OTH JAIL CURRENT DRUG THERAPY] Onset: 04-07-2023 Episodic Other [...] 04-04-2023 BASO # 0.0 103/ul Normal 0.0-0.1 [facility] Comment on above: Performed By: #### C BC ####[facility] Tchrx[address]xd[address]74 [place], [place] [address]Yr. Garima Pulliam Basophils/100 WBC (Bld) 0.3 % Normal 0.2-2.0 [facility] Comment on above: Performed By: #### C BC ####[facility] Yyjxqzxmbj58[address] [place], [place] [address]JsAdalberto Pulliam EO # 0.3 103/ul Normal 0.0-0.7 [facility] Comment on above: Performed By: #### C BC ####[facility] Knzgdqowju5027 [place] [id number]. Garima Pulliam Eosinophils/100 WBC (Bld) 2.8 % Normal 0.9-7.0 [facility] Comment on above: Performed By: #### C BC ####[facility] Efohzuffim9058 [place] [id number]. Garima Pulliam Erythrocyte distribution width (RBC) [Ratio] 13.4 % Normal 11.0-15.0 [facility] Comment on above: Performed By: #### C BC ####[facility] [address] [place], [place] [id number]. Garima Pulliam Hematocrit (Bld) [Volume fraction] 45.7 % Normal 42.0-54.0 [facility] Comment on above: Performed By: #### C BC ####[facility] Yiyt[address]oul[address] [place], [place] [address]Dr. Garima Pulliam Hemoglobin (Bld) [Mass/Vol] 15.2 g/dL Normal 14.0-18.0 [facility] Comment on above: Performed By: #### C BC ####[facility] Zhgparzxku[address] [place], [place] [address]Dr. Garima Pulliam IG # 0.02 10e3/ul Normal 0.00-0.03 [facility] Comment on above: Performed By: #### C BC ####[facility] Gdvykgueei[address] [place], [place] [address]Dr. Garima Pulliam IG % 0.2 % Normal 0.0-0.5 [facility] Comment on above: Performed By: #### C BC ####[facility] Jkadevlvxb[address] [place], [place] [address]Dr. Garima Pulliam LYMPH # 2.1 103/ul Normal 1.2-3.8 [facility] Comment on above: Performed By: #### C BC ####[facility] Pqtdtwmyzz[address] [place], [place] [address]Dr. Garima Pulliam Lymphocytes/100 WBC (Bld) 23.7 % Normal 20.5-60.0 [facility] Comment on above: Performed By: #### C BC ####[facility] Yltkwsxfxq9784 [place] [phone]. Garima Pulliam MANUAL DIFF REQ NO Normal [facility] Comment on above: Performed By: #### C BC ####[facility] Nvfvnrnush1977 [place] [phone]. Garima Pulliam MCH (RBC) [Entitic mass] 30.4 pg Normal 25.9-34.0 [facility] Comment on above: Performed By: #### C BC ####[facility] Wyjciauldq[address] [place], [place] [id number]. Garima Pulliam MCHC (RBC) [Mass/Vol] 33.3 g/dL Normal 29.9-35.2 [facility] Comment on above: Performed By: #### C BC ####[facility] Ekjghsdjza[address] [place], [place] [address]Dr. Garima Pulliam MCV (RBC) [Entitic vol] 91.4 fL Normal 80.0-94.0 [facility] Comment on above: Performed By: #### C BC ####[facility] Kftbziqdof[address] [place], [place] [id number]. Garima Pulliam MONO # 0.7 103/ul Normal 0.3-0.8 [facility] Comment on above: Performed By: #### C BC ####[facility] Meigbjimzh[address] [place], [place] [address]Dr. Garima Heraclio Monocytes/100 WBC (Bld) 8.3 % Normal 1.7-12.0 [facility] Comment on above: Performed By: #### C BC ####[facility] Iurfzxqzwl[address] [place], [place] [id number]. Garima Pulliam NEUT # 5.8 103/ul Normal 1.4-6.5 [facility] Comment on above: Performed By: #### C BC ####[facility] Ksektizmck[address] [place], [place] [address]Dr. Garima Pulliam Neutrophils/100 WBC (Bld) 64.7 % Normal 43.0-75.0 [facility] Comment on above: Performed By: #### C BC ####[facility] Halpbneozj4359 [place] [phone]. Garima Pulliam Platelet mean volume (Bld) [Entitic vol] 8.6 fL Critically low 9.5-13.5 [facility] Comment on above: Performed By: #### C BC ####[facility] Mmsfpcmmav2835 [place] [address]Dr. Garima Pulliam PLT 230 103/ul Normal 150-450 [facility] Comment on above: Performed By: #### C BC ####[facility] Cwspktsnfk6813 [place] [address]Dr. Garima Pulliam RBC 5.00 106/ul Normal 4.70-6.10 [facility] Comment on above: Performed By: #### C BC ####[facility] Vznvgeivlh6448 [place] [address]Dr. Garima Pulliam WBC 9.0 103/ul Normal 4.0-11.0 [facility] Comment on above: Performed By: #### C BC ####[facility] Mgmotgtzsx078[address] [place], [place] [address]Dr. Garima Pulliam MAGNESIUMon 04-04-2023 Magnesium [Mass/Vol] 1.8 mg/dL Normal 1.8-2.4 [facility] Comment on above: Performed By: #### M G ####[facility] Gbhxwfxkil038[address] [place], [place] [address]Dr. Garima Pulliam PROF 14(COMP METB)on 023 Albumin [Mass/Vol] 3.8 g/dL Normal 3.4-5.0 [facility] Comment on above: Performed By: #### C MP ####[facility] Etluxgcdak7258 [place] [address]Dr. Garima Pulliam Albumin/Globulin [Mass ratio] 1.2 {ratio} Normal [facility] Comment on above: Performed By: #### C MP ####[facility] Cckfkmlzzl2057 [place] [address]Dr. Garima Pulliam ALP [Catalytic activity/Vol] 84 U/L Normal 46-116 [facility] Comment on above: Performed By: #### C MP ####[facility] Sjaduisblq2375 [place] [phone]. Garima Pulliam ALT [Catalytic activity/Vol] 31 U/L Normal 16-63 [facility] Comment on above: Performed By: #### C MP ####[facility] Vawvrvgric7052 [place] [phone]. Garima Pulliam Anion gap [Moles/Vol] 12.2 mmol/L Normal Th [facility] Comment on above: Performed By: #### C MP ####[facility] Xnpgbqddmm5649 [place] [phone]. Garima Pulliam AST [Catalytic activity/Vol] 23 U/L Normal 15-37 [facility] Comment on above: Performed By: #### C MP ####[facility] Vmveyyqrxn[address] [place], [place] [address]Dr. Garima Pulliam Bilirubin [Mass/Vol] 0.5 mg/dL Normal 0.2-1.0 [facility] Comment on above: Performed By: #### C MP ####[facility] Nxwbymdmvg[address] [place], [place] [address]Dr. Garima Pulliam Calcium [Mass/Vol] 9.2 mg/dL Normal 8.5-10.1 [facility] Comment on above: Performed By: #### C MP ####[facility] [address]xqipbwi[address] [place], [place] [address]Dr. Garima Pulliam Chloride [Moles/Vol] 103 mmol/L Normal 98-107 [facility] Comment on above: Performed By: #### C MP ####[facility] Fealzfwpxl[address] [place], [place] [id number]. Garima Pulliam CO2 [Moles/Vol] 28.5 mmol/L Normal 21.0-32.0 [facility] Comment on above: Performed By: #### C MP ####[facility] Vgtodpdmet[address] [place], [place] [id number]. Garima Pulliam Creatinine [Mass/Vol] 0.74 mg/dL Normal 0.70-1.30 [facility] Comment on above: Performed By: #### C MP ####[facility] Uyqfaxvniv6163 [place] [id number]. Garima Pulliam EGFR-AF AUSTRALIAN >60 Normal >=60 [facility] Comment on above: Performed By: #### C MP ####[facility] Kfusqlkurb2145 [place] [id number]. Garima Pulliam EGFR-NON AF AUSTRALIAN >60 Normal >=60 [facility] Comment on above: Performed By: #### C MP ####[facility] Kpqlrujwjy1799 [place] [address]Dr. Garima Pulliam Globulin (S) [Mass/Vol] 3.1 g/dL Normal [facility] Comment on above: Performed By: #### C MP ####[facility] Ueprwcantx1230 [place] [address]Dr. Garima Pulliam Glucose [Mass/Vol] 93 mg/dL Normal 74-106 [facility] Comment on above: Performed By: #### C MP ####[facility] Ntcknucnqd1249 [place] [address]Dr. Garima Pulliam Potassium [Moles/Vol] 3.7 mmol/L Normal 3.5-5.1 [facility] Comment on above: Performed By: #### C MP ####[facility] Kkqrfxkyjl6487 [place] [address]Dr. Garima Pulliam Protein [Mass/Vol] 6.9 g/dL Normal 6.4-8.2 [facility] Comment on above: Performed By: #### C MP ####[facility] Chlnrxxwqr8399 [place] [address]Dr. Garima Pulliam Sodium [Moles/Vol] 140 mmol/L Normal 136-145 [facility] Comment on above: Performed By: #### C MP ####[facility] Sosglfwnqo7593 [place] [address]Dr. Garima Pulliam Urea nitrogen [Mass/Vol] 8.0 mg/dL Normal 7.0-18.0 [facility] Comment on above: Performed By: #### C MP ####[facility] Vlcxwufjdu8164 [place] [address]Dr. Garima Pulliam Urea nitrogen/Creatinine [Mass ratio] 10.8 mg/mg Normal [facility] Comment on above: Performed By: #### C MP ####[facility] Gdfousrlbb8741 [place] [address]Dr. Garima Pulliam AMMONIAon 03-30-2023 Ammonia (P) [Moles/Vol] 11 umol/L Normal 11-32 [facility] Comment on above: Performed By: #### A MM ####[facility] Apqnhmdrzo88[address] [place], [place] [address]Dr. Garima Pulliam CARDIAC NASH ADMITon 023 CK [Catalytic activity/Vol] 232 U/L Normal 39-308 [facility] Comment on above: Performed By: #### C DAVID, CMADM ####[facility] Ojioarmtjj8960 [place] [address]Dr. Chapisrenu Pulliam CK.MB [Mass/Vol] 4.83 ng/mL Critically high <=3.60 [facility] Comment on above: Performed By: #### C DAVID, CMADM ####[facility] Aniqdeaqrc54[address] [place], [place] [address]Dr. Garima Pulliam HSTROP 10.5 pg/mL Normal 4.0-76.1 [facility] Comment on above: Result Comment: CUT- OFF POINTS HAVE BEEN ESTABLISHED BASED ON THE FOURTH UNIVERSAL DEFINITIONS OF MYOCARDIALINFARCTION. THE UPPER REFERENCE LIMIT (URL) OF TROPONIN, DEFINED THE 99TH PERCENTILE OFcTnI DISTRIBUTION IN A REFERENCE POPULATION, HAS BEEN CONFIRMED THE DECISION THRESHOLDFOR MD DIAGNOSIS. Performed By: #### C DAVID, CMADM ####[facility] Fuhvwmseki1252 [place] [address]Dr. Chapisrenu Pulliam DORIS 79 ng/mL Normal 16-96 [facility] Comment on above: Performed By: #### C DAVID, CMADM ####[facility] Uehksftphi[address] [place], [place] [address]Dr. Chapisrenu Pulliam CBC AUTO DIFFon 03-30-2023 BASO # 0.0 103/ul Normal 0.0-0.1 [facility] Comment on above: Performed By: #### C BC ####[facility] Doksolytzh6012 [place] [id number]. Garima Pulliam Basophils/100 WBC (Bld) 0.1 % Critically low 0.2-2.0 [facility] Comment on above: Performed By: #### C BC ####[facility] Rfgoqjdizp[address] [place], [place] [address]Dr. Garima Pulliam EO # 0.3 103/ul Normal 0.0-0.7 [facility] Comment on above: Performed By: #### C BC ####[facility] Rtmncmzzuu[address] [place], [place] [address]Dr. Garima Pulliam Eosinophils/100 WBC (Bld) 3.3 % Normal 0.9-7.0 [facility] Comment on above: Performed By: #### C BC ####[facility] Deemmlnbqs[address] [place], [place] [address]Dr. Garima Pulliam Erythrocyte distribution width (RBC) [Ratio] 13.5 % Normal 11.0-15.0 [facility] Comment on above: Performed By: #### C BC ####[facility] Svjfftohxn[address] [place], [place] [address]Dr. Garima Pulliam Hematocrit (Bld) [Volume fraction] 42.9 % Normal 42.0-54.0 [facility] Comment on above: Performed By: #### C BC ####[facility] Odqwxrlglt[address] [place], [place] [address]Dr. Garima Pulliam Hemoglobin (Bld) [Mass/Vol] 13.9 g/dL Critically low 14.0-18.0 [facility] Comment on above: Performed By: #### C BC ####[facility] Itnxqfgnoj9[address] [place], [place] [address]Dr. Garima Pulliam IG # 0.01 10e3/ul Normal 0.00-0.03 [facility] Comment on above: Performed By: #### C BC ####[facility] Jcqkbeiofz[address] [place], [place] [address]Dr. Garima Pulliam IG % 0.1 % Normal 0.0-0.5 [facility] Comment on above: Performed By: #### C BC ####[facility] Fnjepixyfq2859 [place] [id number]. Garima Pulliam LYMPH # 1.7 103/ul Normal 1.2-3.8 [facility] Comment on above: Performed By: #### C BC ####[facility] Gbwskjhoig1282 [place] [phone]. Garima Pulliam Lymphocytes/100 WBC (Bld) 22.8 % Normal 20.5-60.0 [facility] Comment on above: Performed By: #### C BC ####[facility] Yvhcyxxisp6027 [place] [phone]. Garima Pulliam MANUAL DIFF REQ NO Normal [facility] Comment on above: Performed By: #### C BC ####[facility] Kixmdbwnig8817 [place] [phone]. Garima Pulliam MCH (RBC) [Entitic mass] 30.5 pg Normal 25.9-34.0 [facility] Comment on above: Performed By: #### C BC ####[facility] Pirlqcssgr8641 [place] [id number]. Garima Pulliam MCHC (RBC) [Mass/Vol] 32.4 g/dL Normal 29.9-35.2 [facility] Comment on above: Performed By: #### C BC ####[facility] Eojikdefqt2485 [place] [phone]. Garima Pulliam MCV (RBC) [Entitic vol] 94.1 fL Critically high 80.0-94.0 [facility] Comment on above: Performed By: #### C BC ####[facility] Mgbmbdjcis3019 [place] [id number]. Garima Pulliam MONO # 0.7 103/ul Normal 0.3-0.8 [facility] Comment on above: Performed By: #### C BC ####[facility] Pnyotomync4986 [place] [id number]. Garima Pulliam Monocytes/100 WBC (Bld) 8.6 % Normal 1.7-12.0 [facility] Comment on above: Performed By: #### C BC ####[facility] Oodcrjixtj8059 [place] [id number]. Garima Pulliam NEUT # 4.9 103/ul Normal 1.4-6.5 [facility] Comment on above: Performed By: #### C BC ####[facility] Tzqbtdmnlc0679 [place] [phone]. Garima Pulliam Neutrophils/100 WBC (Bld) 65.1 % Normal 43.0-75.0 [facility] Comment on above: Performed By: #### C BC ####[facility] Okwnnpytav6415 [place] [id number]. Garima Pulliam Platelet mean volume (Bld) [Entitic vol] 8.5 fL Critically low 9.5-13.5 [facility] Comment on above: Performed By: #### C BC ####[facility] Vwfdekmvvs3427 [place] [address]Dr. Garima Pulliam PLT 219 103/ul Normal 150-450 [facility] Comment on above: Performed By: #### C BC ####[facility] Mqkexwnhjp1850 [place] [id number]. Garima Pulliam RBC 4.56 106/ul Critically low 4.70-6.10 [facility] Comment on above: Performed By: #### C BC ####[facility] Pkkqrzynhq2416 [place] [id number]. Garima Pulliam WBC 7.6 103/ul Normal 4.0-11.0 [facility] Comment on above: Performed By: #### C BC ####[facility] Lwpkgjxexk2318 [place] [phone]. Garima Pulliam LACTATE/LACTIC ACIDon 2022 Lactate [Moles/Vol] 1.2 mmol/L Normal 0.4-2.0 [facility] Comment on above: Performed By: #### L ACT ####[facility] Jyrsjanwrf8362 [place] [id number]. Garima Pulliam MAGNESIUMon 03-30-2023 Magnesium [Mass/Vol] 1.8 mg/dL Normal 1.8-2.4 [facility] Comment on above: Performed By: #### M G ####[facility] Uhviuhhzkc5314 [place] [address]Dr. Garima Pulliam PROF 14(COMP METB)on 023 Albumin [Mass/Vol] 3.5 g/dL Normal 3.4-5.0 [facility] Comment on above: Performed By: #### C DAVID, NANCY ####[facility] Igiqcxglpx9062 [place] [address]Dr. Garima Pulliam Albumin/Globulin [Mass ratio] 1.2 {ratio} Normal [facility] Comment on above: Performed By: #### C NANCY HERNANDEZ ####[facility] Wrlubfmsxq[address] [place], [place] [address]Dr. Garima Pulliam ALP [Catalytic activity/Vol] 85 U/L Normal 46-116 [facility] Comment on above: Performed By: #### C DAVID, NANCY ####[facility] Daizdcwldq[address] [place], [place] [address]Dr. Garima Pulliam ALT [Catalytic activity/Vol] 29 U/L Normal 16-63 [facility] Comment on above: Performed By: #### C NANCY HERNANDEZ ####[facility] Omxtaqjzzx1909 [place] [address]Dr. Garima Pulliam Anion gap [Moles/Vol] 8.0 mmol/L Normal [facility] Comment on above: Performed By: #### C DAVID, NANCY ####[facility] Oqttnfpbti[address] [place], [place] [address]Dr. Garima Pulliam AST [Catalytic activity/Vol] 18 U/L Normal 15-37 [facility] Comment on above: Performed By: #### C DAVID, NANCY ####[facility] P[address]faeasik[address] [place], [place] [address]Dr. Garima Pulliam Bilirubin [Mass/Vol] 0.4 mg/dL Normal 0.2-1.0 [facility] Comment on above: Performed By: #### C NANCY HERNANDEZ ####[facility] Grrwihqzfp1772 [place] [address]Dr. Garima Pulliam Calcium [Mass/Vol] 8.8 mg/dL Normal 8.5-10.1 [facility] Comment on above: Performed By: #### C DAVID, NANCY ####[facility] Gkmllbpesb1176 [place] [phone]. Garima Pulliam Chloride [Moles/Vol] 108 mmol/L Critically high 98-107 [facility] Comment on above: Performed By: #### C DAVID, NANCY ####[facility] Nylezjcqcv2015 [place] [phone]. Garima Pulliam CO2 [Moles/Vol] 29.6 mmol/L Normal 21.0-32.0 [facility] Comment on above: Performed By: #### C DAVID, NANCY ####[facility] Bdqyhgtliq[address] [place], [place] [address]Dr. Garima Pulliam Creatinine [Mass/Vol] 0.77 mg/dL Normal 0.70-1.30 [facility] Comment on above: Performed By: #### C DAVID, NANCY ####[facility] Iieyfziojf0900 [place] [address]Dr. Garima Pulliam EGFR-AF AUSTRALIAN >60 Normal >=60 [facility] Comment on above: Performed By: #### C DAVID, NANCY ####[facility] Fmsoaxoujk0803 [place] [phone]. Garima Pulliam EGFR-NON AF AUSTRALIAN >60 Normal >=60 [facility] Comment on above: Performed By: #### C DAVID, NANCY ####[facility] Pwekkuibqq2379 [place] [phone]. Garima Pulliam Globulin (S) [Mass/Vol] 2.8 g/dL Normal [facility] Comment on above: Performed By: #### C DAVID, NANCY ####[facility] Ebuyzcdsfs[address] [place] [address]Dr. Garima Pulliam Glucose [Mass/Vol] 207 mg/dL Critically high 74-106 [facility] Comment on above: Performed By: #### C DAVID, NANCY ####[facility] Wojyvigeqx[address] [place] [address]Dr. Garima Pulliam Potassium [Moles/Vol] 4.6 mmol/L Normal 3.5-5.1 [facility] Comment on above: Performed By: #### C DAVID, CMADM ####[facility] Lulrtqezmk25[address] [place] [address]Dr. Garima Pulliam Protein [Mass/Vol] 6.3 g/dL Critically low 6.4-8.2 Th [facility] Comment on above: Performed By: #### C DAVID, CMADM ####[facility] Gycgcnbgrg[address]67 [place] [address]Dr. Garima Pulliam Sodium [Moles/Vol] 141 mmol/L Normal 136-145 [facility] Comment on above: Performed By: #### C DAVID, CMADM ####[facility] Ylprcyceid6048 [place] [address]Dr. Garima Pulliam Urea nitrogen [Mass/Vol] 9.0 mg/dL Normal 7.0-18.0 [facility] Comment on above: Performed By: #### C DAVID, CMADM ####[facility] Nfsagdclix[address] [place] [address]Dr. Garima Pulliam Urea nitrogen/Creatinine [Mass ratio] 11.7 mg/mg Normal [facility] Comment on above: Performed By: #### C DAVID, CMADM ####[facility] Fmpykkpxpp6357 [place] [address]Dr. Garima Pulliam XR CHEST 1 Von 03-30-2023 XR CHEST 1 V Normal [facility] BNPon 03-27-2023 Natriuretic peptide B (Bld) [Mass/Vol] 251.0 pg/mL Normal <=900.0 [facility] Comment on above: Performed By: #### C MP, BNP, LIPID ####[facility] Caitnabsde[address] [place], [place] [address]Dr. Garima Heraclio GLYCOHEMOGLOBIN A1Con 2022 ADA RECOMMENDATION SEE BELOW Normal [facility] Comment on above: Result Comment: ADA RECOMMENDED LIMIT 4.0 - 6.0 ADA THERAPEUTIC TARGET < 7.0 ACTION SUGGESTED > 7.0 Performed By: #### A 1C ####[facility] Xqqrswalhh[address] [place] [address]Dr. Garima Pulliam Glucose [Mass/Vol] 180 mg/dL Normal [facility] Comment on above: Performed By: #### A 1C ####[facility] Wqicsapygt[address] [place], [place] [address]Dr. Garima Pulliam HbA1c (Bld) [Mass fraction] 7.9 % Critically high 4.5-6.2 [facility] Comment on above: Performed By: #### A 1C ####[facility] Qhdusztbcu[address] [place], [place] [address]Dr. Garima Pulliam HEMOGRAM AND PLATELon 2022 Hematocrit (Bld) [Volume fraction] 45.7 % Normal 42.0-54.0 [facility] Comment on above: Performed By: #### H H ####[facility] Vmwixenjxj[address] [place], [place] [address]Dr. Garima Pulliam Hemoglobin (Bld) [Mass/Vol] 15.1 g/dL Normal 14.0-18.0 [facility] Comment on above: Performed By: #### H H ####[facility] Fttqpuqkie[address] [place], [place] [address]Dr. Garima Pulliam MCH (RBC) [Entitic mass] 30.0 pg Normal 25.9-34.0 [facility] Comment on above: Performed By: #### H H ####[facility] Mynojpfibw[address] [place], [place] [address]Dr. Garima Pulliam MCHC (RBC) [Mass/Vol] 33.0 g/dL Normal 29.9-35.2 [facility] Comment on above: Performed By: #### H H ####[facility] Mxgzhgrwqd[address] [place], [place] [address]Dr. Garima Pulliam MCV (RBC) [Entitic vol] 90.7 fL Normal 80.0-94.0 [facility] Comment on above: Performed By: #### H H ####[facility] Baxwrxycqn[address] [place], [place] [address]Dr. Garima Pulliam PLT 222 103/ul Normal 150-450 [facility] Comment on above: Performed By: #### H H ####[facility] Ugqxgohhfl[address] [place] [id number]. Garima Pulliam RBC 5.04 106/ul Normal 4.70-6.10 [facility] Comment on above: Performed By: #### H H ####[facility] Zhluomyxnj6383 [place] [id number]. Garima Pulliam WBC 8.7 103/ul Normal 4.0-11.0 [facility] Comment on above: Performed By: #### H H ####[facility] Uytwssabvy3101 [place] [id number]. Garima Pulliam LIPID PROFILEon 03-27-2023 CHOL-HDL RATIO NORM SEE BELOW Normal [facility] Comment on above: Result Comment: 3.3 - 4.4 LOW RISK 4.4 - 7.1 AVERAGE RISK 7.1 - 11.0 MODERATE RISK >11.0 HIGH RISK Performed By: #### C MP, BNP, LIPID ####[facility] Uehdkhsblc9[address] [place] [id number]. Garima Pulliam Cholesterol [Mass/Vol] 113 mg/dL Normal <=200 [facility] Comment on above: Performed By: #### C MP, BNP, LIPID ####[facility] Qoznxdghoi5435 [place] [phone]. Garima Pulliam Cholesterol in HDL [Mass/Vol] 51 mg/dL Normal 40-60 [facility] Comment on above: Performed By: #### C MP, BNP, LIPID ####[facility] Ewyvwyrrqe8227 [place] [id number]. Garima Pulliam Cholesterol in LDL [Mass/Vol] 49.8 mg/dL Normal [facility] Comment on above: Performed By: #### C MP, BNP, LIPID ####[facility] Uqmmmeuwyc0955 [place] [phone]. Garima Pulliam Cholesterol.total/Cho lesterol in HDL [Mass ratio] 2.2 {ratio} Normal [facility] Comment on above: Performed By: #### C MP, BNP, LIPID ####[facility] Bqestixplu[address] [place] [address]Dr. Garima Pulliam HDL NORMAL > or = 60 mg/dl - LOW CARDIOVASCULAR RISK <40 mg/dl - HIGH CARDIOVASCULAR RISK Normal [facility] Comment on above: Performed By: #### C MP, BNP, LIPID ####[facility] Rqfrhuebva1526 [place] [address]Dr. Garima Pulliam LDL CALC NORMAL SEE BELOW Normal [facility] Comment on above: Result Comment: <100 mg/dl OPTIMAL 100 - 129 mg/dl NEAR OR ABOVE OPTIMAL 130 - 159 mg/dl BORDERLINE HIGH 160 - 189 mg/dl HIGH >190 mg/dl VERY HIGH Performed By: #### C MP, BNP, LIPID ####[facility] Ebgmavklnb[address] [place] [address]Dr. Garima Pulliam Triglyceride [Mass/Vol] 61 mg/dL Normal <=150 [facility] Comment on above: Performed By: #### C MP, BNP, LIPID ####[facility] Rtkbqeohdl5233 [place] [address]Dr. Garima Pulliam VLDL CALC 12.2 mg/dL Normal [facility] Comment on above: Performed By: #### C MP, BNP, LIPID ####[facility] Wgrhbneuln1908 [place] [address]Dr. Garima Pulliam PROF 14(COMP METB)on 023 Albumin [Mass/Vol] 3.5 g/dL Normal 3.4-5.0 [facility] Comment on above: Performed By: #### C MP, BNP, LIPID ####[facility] Ftydngypyy1338 [place] [address]Dr. Garima Pulliam Albumin/Globulin [Mass ratio] 1.2 {ratio} Normal [facility] Comment on above: Performed By: #### C MP, BNP, LIPID ####[facility] Qmacfmyhyr9315 [place] [address]Dr. Garima Pulliam ALP [Catalytic activity/Vol] 82 U/L Normal 46-116 [facility] Comment on above: Performed By: #### C MP, BNP, LIPID ####[facility] Rzcfgrjmbm9444 [place] [id number]. Garima Pulliam ALT [Catalytic activity/Vol] 33 U/L Normal 16-63 [facility] Comment on above: Performed By: #### C MP, BNP, LIPID ####[facility] Mjmtrxiexe6306 [place] [id number]. Garima Pulliam Anion gap [Moles/Vol] 9.9 mmol/L Normal [facility] Comment on above: Performed By: #### C MP, BNP, LIPID ####[facility] Pognnrqlil5537 [place] [address]Dr. Garima Pulliam AST [Catalytic activity/Vol] 24 U/L Normal 15-37 [facility] Comment on above: Performed By: #### C MP, BNP, LIPID ####[facility] Ugywpnsmbq1611 [place] [address]Dr. Garima Pulliam Bilirubin [Mass/Vol] 0.6 mg/dL Normal 0.2-1.0 [facility] Comment on above: Performed By: #### C MP, BNP, LIPID ####[facility] Mhhtnkhcpo0265 [place] [address]Dr. Garima Pulliam Calcium [Mass/Vol] 9.2 mg/dL Normal 8.5-10.1 [facility] Comment on above: Performed By: #### C MP, BNP, LIPID ####[facility] Elvsndnlda7060 [place] [address]Dr. Garima Pulliam Chloride [Moles/Vol] 106 mmol/L Normal 98-107 [facility] Comment on above: Performed By: #### C MP, BNP, LIPID ####[facility] Xubvetunpo1936 [place] [address]Dr. Garima Pulliam CO2 [Moles/Vol] 32.3 mmol/L Critically high 21.0-32.0 [facility] Comment on above: Performed By: #### C MP, BNP, LIPID ####[facility] Hnuwbhtoom5902 [place] [address]Dr. Garima Pulliam Creatinine [Mass/Vol] 0.70 mg/dL Normal 0.70-1.30 [facility] Comment on above: Performed By: #### C MP, BNP, LIPID ####[facility] Wfppabmwle5869 [place] [address]Dr. Garima Heraclio EGFR-AF AUSTRALIAN >60 Normal >=60 [facility] Comment on above: Performed By: #### C MP, BNP, LIPID ####[facility] Gcmcdhokht0768 [place] [address]Dr. Garima Pulliam EGFR-NON AF AUSTRALIAN >60 Normal >=60 [facility] Comment on above: Performed By: #### C MP, BNP, LIPID ####[facility] Ibjxqgtcaa8942 [place] [address]Dr. Garima Pulliam Globulin (S) [Mass/Vol] 2.9 g/dL Normal [facility] Comment on above: Performed By: #### C MP, BNP, LIPID ####[facility] Mefqkfsser[address] [place], [place] [address]Dr. Garima Pulliam Glucose [Mass/Vol] 111 mg/dL Critically high 74-106 [facility] Comment on above: Performed By: #### C MP, BNP, LIPID ####[facility] Yfmjypbwqx[address] [place], [place] [address]Dr. Garima Pulliam Potassium [Moles/Vol] 4.2 mmol/L Normal 3.5-5.1 [facility] Comment on above: Performed By: #### C MP, BNP, LIPID ####[facility] Raawjyepye8914 [place] [address]Dr. Garima Pulliam Protein [Mass/Vol] 6.4 g/dL Normal 6.4-8.2 [facility] Comment on above: Performed By: #### C MP, BNP, LIPID ####[facility] Fieqhcipfd[address] [place], [place] [address]Dr. Garima Pulliam Sodium [Moles/Vol] 144 mmol/L Normal 136-145 [facility] Comment on above: Performed By: #### C MP, BNP, LIPID ####[facility] Xisciksvsv[address] [place], [place] [address]Dr. Garima Pulliam Urea nitrogen [Mass/Vol] 7.0 mg/dL Normal 7.0-18.0 [facility] Comment on above: Performed By: #### C MP, BNP, LIPID ####[facility] Ptiyryqnxj[address] [place], [place] [address]Dr. Garima Pulliam Urea nitrogen/Creatinine [Mass ratio] 10.0 mg/mg Normal [facility] Comment on above: Performed By: #### C MP, BNP, LIPID ####[facility] Goeyxacxks[address] [place], [place] [address]Dr. Garima Pulliam BNPon 03-22-2023 Natriuretic peptide B (Bld) [Mass/Vol] 103.0 pg/mL Normal <=900.0 [facility] Comment on above: Performed By: #### B CONSTRUCTION SAFETY MANAGER, BMP ####[facility] Bykcphohbt[address] [place], [place] [address]Dr. Garima Pulliam CBC AUTO DIFFon 03-22-2023 BASO # 0.0 103/ul Normal 0.0-0.1 [facility] Comment on above: Performed By: #### C BC ####[facility] Fcvjcjnrsg[address] [place], [place] [address]Dr. Garima Pulliam Basophils/100 WBC (Bld) 0.3 % Normal 0.2-2.0 [facility] Comment on above: Performed By: #### C BC ####[facility] Cyxqkfiuzx[address] [place], [place] [address]Dr. Garima Pulliam EO # 0.2 103/ul Normal 0.0-0.7 [facility] Comment on above: Performed By: #### C BC ####[facility] Kemrzxkush[address] [place], [place] [address]Dr. Garima Pulliam Eosinophils/100 WBC (Bld) 2.2 % Normal 0.9-7.0 [facility] Comment on above: Performed By: #### C BC ####[facility] Fymoldlwnb[address] [place], [place] [address]Dr. Garima Pulliam Erythrocyte distribution width (RBC) [Ratio] 13.2 % Normal 11.0-15.0 [facility] Comment on above: Performed By: #### C BC ####[facility] Oaexoedskk8938 [place] [address]Dr. Garima Pulliam Hematocrit (Bld) [Volume fraction] 43.4 % Normal 42.0-54.0 [facility] Comment on above: Performed By: #### C BC ####[facility] Vgykjraimi6893 [place] [address]Dr. Garima Heraclio Hemoglobin (Bld) [Mass/Vol] 14.3 g/dL Normal 14.0-18.0 [facility] Comment on above: Performed By: #### C BC ####[facility] Ujxradrxmy[address] [place], [place] [address]Dr. Chapisrenu Pulliam IG # 0.02 10e3/ul Normal 0.00-0.03 [facility] Comment on above: Performed By: #### C BC ####[facility] Rcbjujmypg[address] [place], [place] [address]Dr. Garima Pulliam IG % 0.3 % Normal 0.0-0.5 [facility] Comment on above: Performed By: #### C BC ####[facility] Bcajodmjvr[address] [place], [place] [address]Dr. Chapisrenu Pulliam LYMPH # 2.0 103/ul Normal 1.2-3.8 [facility] Comment on above: Performed By: #### C BC ####[facility] Lkmgjgywog[address] [place], [place] [address]Dr. Garima Pulliam Lymphocytes/100 WBC (Bld) 24.8 % Normal 20.5-60.0 [facility] Comment on above: Performed By: #### C BC ####[facility] Oetsmyzqqs[address] [place], [place] [address]Dr. Garima Pulliam MANUAL DIFF REQ NO Normal [facility] Comment on above: Performed By: #### C BC ####[facility] Vsyoyljfng[address] [place], [place] [address]Dr. Garima Pulliam MCH (RBC) [Entitic mass] 30.0 pg Normal 25.9-34.0 [facility] Comment on above: Performed By: #### C BC ####[facility] Oodsndyzmb9464 [place] [id number]. Garima Heraclio MCHC (RBC) [Mass/Vol] 32.9 g/dL Normal 29.9-35.2 [facility] Comment on above: Performed By: #### C BC ####[facility] Nxwzmdhkrl1858 [place] [phone]. Garima Pulliam MCV (RBC) [Entitic vol] 91.0 fL Normal 80.0-94.0 [facility] Comment on above: Performed By: #### C BC ####[facility] Gtlxelfehy[address] [place], [place] [address]Dr. Garima Pulliam MONO # 0.8 103/ul Normal 0.3-0.8 [facility] Comment on above: Performed By: #### C BC ####[facility] Hoeypnjfav254[address] [place], [place] [address]Dr. Garima Pulliam Monocytes/100 WBC (Bld) 9.7 % Normal 1.7-12.0 [facility] Comment on above: Performed By: #### C BC ####[facility] Xflpbumdpn312[address] [place], [place] [address]Dr. Garima Pulliam NEUT # 4.9 103/ul Normal 1.4-6.5 [facility] Comment on above: Performed By: #### C BC ####[facility] Vaodysrxnx[address] [place], [place] [address]Dr. Garima Pulliam Neutrophils/100 WBC (Bld) 62.7 % Normal 43.0-75.0 [facility] Comment on above: Performed By: #### C BC ####[facility] I[address]xtzdgako[address] [place], [place] [address]Dr. Garima Pulliam Platelet mean volume (Bld) [Entitic vol] 8.8 fL Critically low 9.5-13.5 [facility] Comment on above: Performed By: #### C BC ####[facility] Ugqrkfixqq047[address] [place], [place] [address]Dr. Garima Pulliam PLT 198 103/ul Normal 150-450 [facility] Comment on above: Performed By: #### C BC ####[facility] Ozuhnlvbxd8982 [place] [id number]. Chapisrenu Pulliam RBC 4.77 106/ul Normal 4.70-6.10 [facility] Comment on above: Performed By: #### C BC ####[facility] Jvklynavxh9282 [place] [id number]. Garima Pulliam WBC 7.9 103/ul Normal 4.0-11.0 [facility] Comment on above: Performed By: #### C BC ####[facility] Omeesgfpos6146 [place] [id number]. Garima Pulliam D-DIMERon 03-22-2023 D-DIMER 0.85 mg/L FEU Critically high <=0.59 [facility] Comment on above: Performed By: #### D DIM ####[facility] Aszhsgtaej5238 [place] [address]Dr. Garima Pulliam D-DIMER COMMENTS SEE BELOW Normal [facility] Comment on above: Result Comment: Incr eases [...] generalized hospitalization. Performed By: #### D DIM ####[facility] Bygjsmguds4205 [place] [address]Dr. Garima Pulliam PROF CHEM 8 (BAS METB)on Anion gap [Moles/Vol] 6.9 mmol/L Normal [facility] Comment on above: Performed By: #### B CONSTRUCTION SAFETY MANAGER, BMP ####[facility] Vrwcsipwki4081 [place] [address]Dr. Garima Pulliam Calcium [Mass/Vol] 8.9 mg/dL Normal 8.5-10.1 [facility] Comment on above: Performed By: #### B CONSTRUCTION SAFETY MANAGER, BMP ####[facility] Mswujnhgbg8363 [place] [phone]. Garima Pulliam Chloride [Moles/Vol] 101 mmol/L Normal 98-107 [facility] Comment on above: Performed By: #### B CONSTRUCTION SAFETY MANAGER, BMP ####[facility] Jwkwjtster9163 [place] [address]Dr. Garima Pulliam CO2 [Moles/Vol] 30.7 mmol/L Normal 21.0-32.0 [facility] Comment on above: Performed By: #### B CONSTRUCTION SAFETY MANAGER, BMP ####[facility] [address]qkxzsnv[address] [place], [place] [address]Dr. Garima Pulliam Creatinine [Mass/Vol] 0.82 mg/dL Normal 0.70-1.30 [facility] Comment on above: Performed By: #### B CONSTRUCTION SAFETY MANAGER, BMP ####[facility] Mmlwrbfwkx[address] [place], [place] [address]Dr. Garima Pulliam EGFR-AF AUSTRALIAN >60 Normal >=60 [facility] Comment on above: Performed By: #### B CONSTRUCTION SAFETY MANAGER, BMP ####[facility] Yndpaeiiba893[address] [place], [place] [address]Dr. Garima Pulliam EGFR-NON AF AUSTRALIAN >60 Normal >=60 [facility] Comment on above: Performed By: #### B CONSTRUCTION SAFETY MANAGER, BMP ####[facility] Ynbfvbcjgi[address] [place], [place] [address]Dr. Garima Pulliam Glucose [Mass/Vol] 339 mg/dL Critically high 74-106 [facility] Comment on above: Performed By: #### B CONSTRUCTION SAFETY MANAGER, BMP ####[facility] Vaovveeiat059[address] [place], [place] [address]Dr. Garima Pulliam Potassium [Moles/Vol] 3.6 mmol/L Normal 3.5-5.1 [facility] Comment on above: Performed By: #### B CONSTRUCTION SAFETY MANAGER, BMP ####[facility] Tnlepavhum[address] [place], [place] [address]Dr. Garima Pulliam Sodium [Moles/Vol] 135 mmol/L Critically low 136-145 Th [facility] Comment on above: Performed By: #### B CONSTRUCTION SAFETY MANAGER, BMP ####[facility] Dckvtnrcch1291 [place] [phone]. Garima Pulliam Urea nitrogen [Mass/Vol] 11.0 mg/dL Normal 7.0-18.0 [facility] Comment on above: Performed By: #### B CONSTRUCTION SAFETY MANAGER, BMP ####[facility] Zhdkxiiwsw[address] [place], [place] [id number]. Garima Pulliam Urea nitrogen/Creatinine [Mass ratio] 13.4 mg/mg Normal [facility] Comment on above: Performed By: #### B CONSTRUCTION SAFETY MANAGER, BMP ####[facility] Kedxjbwuyf[address] [place], [place] [address]Dr. Garima Pulliam US VERONICA DOP LEG BILon 023 US VERONICA DOP LEG BENOIT Normal [facility] BNPon 03-18-2023 Natriuretic peptide B (Bld) [Mass/Vol] 226.0 pg/mL Normal <=900.0 [facility] Comment on above: Performed By: #### B CONSTRUCTION SAFETY MANAGER, BMP ####[facility] Rwuhhmjebs[address] [place], [place] [address]Dr. Garima Pluliam CBC AUTO DIFFon 03-18-2023 BASO # 0.0 103/ul Normal 0.0-0.1 [facility] Comment on above: Performed By: #### C BC ####[facility] Rbircftolt[address] [place], [place] [address]Dr. Garima Heraclio Basophils/100 WBC (Bld) 0.2 % Normal 0.2-2.0 [facility] Comment on above: Performed By: #### C BC ####[facility] Ymyrkcrxww[address] [place], [place] [address]Dr. Garima Pulliam EO # 0.3 103/ul Normal 0.0-0.7 [facility] Comment on above: Performed By: #### C BC ####[facility] Gelauzligy[address] [place], [place] [address]Dr. Garima Heraclio Eosinophils/100 WBC (Bld) 2.5 % Normal 0.9-7.0 [facility] Comment on above: Performed By: #### C BC ####[facility] Oelcfvcilx[address] [place], [place] [address]Dr. Garima Pulliam Erythrocyte distribution width (RBC) [Ratio] 13.2 % Normal 11.0-15.0 [facility] Comment on above: Performed By: #### C BC ####[facility] [address]idtrbqh[address] [place] [address]Dr. Garima Pulliam Hematocrit (Bld) [Volume fraction] 45.8 % Normal 42.0-54.0 [facility] Comment on above: Performed By: #### C BC ####[facility] Cprkrseqbu3[address] [place] [address]Dr. Garima Pulliam Hemoglobin (Bld) [Mass/Vol] 15.3 g/dL Normal 14.0-18.0 [facility] Comment on above: Performed By: #### C BC ####[facility] Jfqozbsndr[address] [place], [place] [address]Dr. Chapisrenu Pulliam IG # 0.02 10e3/ul Normal 0.00-0.03 [facility] Comment on above: Performed By: #### C BC ####[facility] Vlhxwtyygw[address] [place], [place] [address]Dr. Garima Pulliam IG % 0.2 % Normal 0.0-0.5 [facility] Comment on above: Performed By: #### C BC ####[facility] Nwcyqiuqxw6[address] [place], [place] [address]Dr. Garima Heraclio LYMPH # 1.8 103/ul Normal 1.2-3.8 [facility] Comment on above: Performed By: #### C BC ####[facility] Nchcvejncf[address] [place], [place] [address]Dr. Garima Heraclio Lymphocytes/100 WBC (Bld) 18.3 % Critically low 20.5-60.0 [facility] Comment on above: Performed By: #### C BC ####[facility] Noryvwxngo174[address] [place], [place] [address]Dr. Chapisrenu Pulliam MANUAL DIFF REQ NO Normal [facility] Comment on above: Performed By: #### C BC ####[facility] Knhbcwpugy7[address] [place], [place] [address]Dr. Yirenu Pulliam MCH (RBC) [Entitic mass] 30.5 pg Normal 25.9-34.0 [facility] Comment on above: Performed By: #### C BC ####[facility] Tefztilqcp8442 [place] [id number]. Garima Pulliam MCHC (RBC) [Mass/Vol] 33.4 g/dL Normal 29.9-35.2 [facility] Comment on above: Performed By: #### C BC ####[facility] Cvawuzsnkp9094 [place] [id number]. Graima Pulliam MCV (RBC) [Entitic vol] 91.2 fL Normal 80.0-94.0 [facility] Comment on above: Performed By: #### C BC ####[facility] Phbtwtrhhy[address] [place], [place] [address]DrAdalberto Garima Heraclio MONO # 0.8 103/ul Normal 0.3-0.8 [facility] Comment on above: Performed By: #### C BC ####[facility] Cdomnpdazq038[address] [place], [place] [address]Dr. Chapisrenu Pulliam Monocytes/100 WBC (Bld) 7.6 % Normal 1.7-12.0 [facility] Comment on above: Performed By: #### C BC ####[facility] Fnworyejle586[address] [place], [place] [address]Dr. Garima Pulliam NEUT # 7.0 103/ul Critically high 1.4-6.5 [facility] Comment on above: Performed By: #### C BC ####[facility] Nxxelyvutk8[address] [place], [place] [address]DrAdalberto Chapisrenu Pulliam Neutrophils/100 WBC (Bld) 71.2 % Normal 43.0-75.0 [facility] Comment on above: Performed By: #### C BC ####[facility] Qrrtyumuoe946[address] [place], [place] [address]Dr. Garima Pulliam Platelet mean volume (Bld) [Entitic vol] 8.9 fL Critically low 9.5-13.5 [facility] Comment on above: Performed By: #### C BC ####[facility] Kbxwtpthlm2983 [place] [id number]. Garima Pulliam PLT 217 103/ul Normal 150-450 [facility] Comment on above: Performed By: #### C BC ####[facility] Jlurlxigwz6267 [place] [address]Dr. Garima Pulliam RBC 5.02 106/ul Normal 4.70-6.10 [facility] Comment on above: Performed By: #### C BC ####[facility] Vbykznafbj479[address] [place], [place] [address]Dr. Garima Pulliam WBC 9.8 103/ul Normal 4.0-11.0 [facility] Comment on above: Performed By: #### C BC ####[facility] Xxjbvsxesm100[address] [place], [place] [address]Dr. Garima Pulliam CRPon 03-18-2023 CRP 0.1 mg/dL Normal <=1.0 [facility] Comment on above: Performed By: #### C RP ####[facility] Rkdginigrr207[address] [place], [place] [address]Dr. Garima Heraclio PROF CHEM 8 (BAS METB)on Anion gap [Moles/Vol] 10.4 mmol/L Normal [facility] Comment on above: Performed By: #### B CONSTRUCTION SAFETY MANAGER, BMP ####[facility] Aeojcxjjny658[address] [place], [place] [address]Dr. Garima Heraclio Calcium [Mass/Vol] 8.8 mg/dL Normal 8.5-10.1 [facility] Comment on above: Performed By: #### B CONSTRUCTION SAFETY MANAGER, BMP ####[facility] Icpqultbva7232 [place] [address]Dr. Garima Heraclio Chloride [Moles/Vol] 97 mmol/L Critically low 98-107 [facility] Comment on above: Performed By: #### B CONSTRUCTION SAFETY MANAGER, BMP ####[facility] Muyvdbffie5548 [place] [address]Dr. Garima Pulliam CO2 [Moles/Vol] 31.2 mmol/L Normal 21.0-32.0 [facility] Comment on above: Performed By: #### B CONSTRUCTION SAFETY MANAGER, BMP ####[facility] Cytsgxwfid5585 [place] [id number]. Garima Pulliam Creatinine [Mass/Vol] 0.91 mg/dL Normal 0.70-1.30 [facility] Comment on above: Performed By: #### B CONSTRUCTION SAFETY MANAGER, BMP ####[facility] Kleemepyvh1739 [place] [id number]. Garima Pulliam EGFR-AF AUSTRALIAN >60 Normal >=60 [facility] Comment on above: Performed By: #### B CONSTRUCTION SAFETY MANAGER, BMP ####[facility] Bmvggerxmw1503 [place] [id number]. Garima Pulliam EGFR-NON AF AUSTRALIAN >60 Normal >=60 [facility] Comment on above: Performed By: #### B CONSTRUCTION SAFETY MANAGER, BMP ####[facility] Qkblqvrq[address] [place], [place] [id number]. Garima Pulliam Glucose [Mass/Vol] 315 mg/dL Critically high 74-106 [facility] Comment on above: Performed By: #### B CONSTRUCTION SAFETY MANAGER, BMP ####[facility] Fgatmgzoaq456[address] [place], [place] [id number]. Garima Pulliam Potassium [Moles/Vol] 3.6 mmol/L Normal 3.5-5.1 [facility] Comment on above: Performed By: #### B CONSTRUCTION SAFETY MANAGER, BMP ####[facility] Nsrjmnjpxg[address] [place], [place] [id number]. Garima Pulliam Sodium [Moles/Vol] 135 mmol/L Critically low 136-145 [facility] Comment on above: Performed By: #### B CONSTRUCTION SAFETY MANAGER, BMP ####[facility] Qwmrhwckwg6203 [place] [id number]. Garima Pulliam Urea nitrogen [Mass/Vol] 7.0 mg/dL Normal 7.0-18.0 [facility] Comment on above: Performed By: #### B CONSTRUCTION SAFETY MANAGER, BMP ####[facility] Gqsaxlgxjm966[address] [place], [place] [id number]. Garima Pulliam Urea nitrogen/Creatinine [Mass ratio] 7.7 mg/mg Normal [facility] Comment on above: Performed By: #### B CONSTRUCTION SAFETY MANAGER, BMP ####[facility] Uelspfefzn837[address] [place], [place] [address]Dr. Garima Pulliam SED RATE WESTERGRENon 2022 SED RATE 8 mm/hr Normal <=20 [facility] Comment on above: Performed By: #### S EDR ####[facility] Raszdzcyue743[address] [place], [place] [address]Dr. Garima Pulliam BNPon 03-16-2023 Natriuretic peptide B (Bld) [Mass/Vol] 241.0 pg/mL Normal <=900.0 [facility] Comment on above: Performed By: #### B CONSTRUCTION SAFETY MANAGER, BMP, HSTROPN ####[facility] Tpycgjaxua380[address] [place], [place] [address]Dr. Garima Heraclio CBC AUTO DIFFon 03-16-2023 BASO # 0.0 103/ul Normal 0.0-0.1 [facility] Comment on above: Performed By: #### C BC ####[facility] Afzutekhwq388[address] [place], [place] [address]Dr. Garima Heraclio Basophils/100 WBC (Bld) 0.2 % Normal 0.2-2.0 [facility] Comment on above: Performed By: #### C BC ####[facility] Fdpslmgrac604[address] [place], [place] [address]Dr. Chapisrenu eHraclio EO # 0.2 103/ul Normal 0.0-0.7 [facility] Comment on above: Performed By: #### C BC ####[facility] Frbtkdjwdl018[address] [place], [place] [address]Dr. Chapisrenu Pulliam Eosinophils/100 WBC (Bld) 2.7 % Normal 0.9-7.0 [facility] Comment on above: Performed By: #### C BC ####[facility] Ghcgiprciw704[address] [place], [place] [address]Dr. Garima Heraclio Erythrocyte distribution width (RBC) [Ratio] 13.1 % Normal 11.0-15.0 [facility] Comment on above: Performed By: #### C BC ####[facility] Eyfmddapaj799[address] [place], [place] [address]Dr. Garima Pulliam Hematocrit (Bld) [Volume fraction] 41.8 % Critically low 42.0-54.0 [facility] Comment on above: Performed By: #### C BC ####[facility] Wrdxdgjpev1291 [place] [address]DrAdalberto Pulliam Hemoglobin (Bld) [Mass/Vol] 14.0 g/dL Normal 14.0-18.0 [facility] Comment on above: Performed By: #### C BC ####[facility] Lmjbpsbjbz[address] [place], [place] [address]DrAdalberto Pulliam IG # 0.03 10e3/ul Normal 0.00-0.03 [facility] Comment on above: Performed By: #### C BC ####[facility] Keyyzfxpos998[address] [place], [place] [address]DrAdalberto Pulliam IG % 0.3 % Normal 0.0-0.5 [facility] Comment on above: Performed By: #### C BC ####[facility] Zafoeszvpc780[address] [place], [place] [address]DrAdalberto Pulliam LYMPH # 2.1 103/ul Normal 1.2-3.8 [facility] Comment on above: Performed By: #### C BC ####[facility] Fcltnivkrh167[address] [place], [place] [address]DrAdalberto Pulliam Lymphocytes/100 WBC (Bld) 24.2 % Normal 20.5-60.0 [facility] Comment on above: Performed By: #### C BC ####[facility] Jvwjtwsypc154[address] [place], [place] [address]DrAdalberto Pulliam MANUAL DIFF REQ NO Normal [facility] Comment on above: Performed By: #### C BC ####[facility] Iptdlcffww317[address] [place], [place] [address]DrAdalberto Pulliam MCH (RBC) [Entitic mass] 30.2 pg Normal 25.9-34.0 [facility] Comment on above: Performed By: #### C BC ####[facility] Gvgvdaecpx[address] [place], [place] [address]DrAdalberto Pulliam MCHC (RBC) [Mass/Vol] 33.5 g/dL Normal 29.9-35.2 [facility] Comment on above: Performed By: #### C BC ####[facility] Egmazvdoky060[address] [place], [place] [address]DrAdalberto Pulliam MCV (RBC) [Entitic vol] 90.1 fL Normal 80.0-94.0 [facility] Comment on above: Performed By: #### C BC ####[facility] Scovfycygv[address] [place], [place] [address]DrAdalberto Pulliam MONO # 0.6 103/ul Normal 0.3-0.8 [facility] Comment on above: Performed By: #### C BC ####[facility] Dccxvgbtle[address] [place], [place] [address]DrAdalberto Pulliam Monocytes/100 WBC (Bld) 7.4 % Normal 1.7-12.0 [facility] Comment on above: Performed By: #### C BC ####[facility] Knjaolccwr[address] [place], [place] [address]DrAdalberto Pulliam NEUT # 5.6 103/ul Normal 1.4-6.5 [facility] Comment on above: Performed By: #### C BC ####[facility] Ngrghfvbpb920[address] [place], [place] [address]DrAdalberto Pulliam Neutrophils/100 WBC (Bld) 65.2 % Normal 43.0-75.0 [facility] Comment on above: Performed By: #### C BC ####[facility] Pkefwpwuah[address] [place], [place] [address]DrAdalberto Pulliam Platelet mean volume (Bld) [Entitic vol] 8.7 fL Critically low 9.5-13.5 [facility] Comment on above: Performed By: #### C BC ####[facility] Wscywsejcb5[address] [place], [place] [address]DrAdalberto Pulliam PLT 195 103/ul Normal 150-450 [facility] Comment on above: Performed By: #### C BC ####[facility] Ylxrbapche029[address] [place], [place] [address]DrAdalberto Pulliam RBC 4.64 106/ul Critically low 4.70-6.10 [facility] Comment on above: Performed By: #### C BC ####[facility] Thlyslckyj332[address] [place], [place] [address]Dr. Garima Pulliam WBC 8.6 103/ul Normal 4.0-11.0 [facility] Comment on above: Performed By: #### C BC ####[facility] Ahlsmqildg88[address] [place], [place] [address]Dr. Garima Pulliam PROF CHEM 8 (BAS METB)on Anion gap [Moles/Vol] 6.7 mmol/L Normal [facility] Comment on above: Performed By: #### B CONSTRUCTION SAFETY MANAGER, BMP, HSTROPN ####[facility] Iwvgfxqjrq866[address] [place], [place] [address]Dr. Garima Pulliam Calcium [Mass/Vol] 8.8 mg/dL Normal 8.5-10.1 [facility] Comment on above: Performed By: #### B CONSTRUCTION SAFETY MANAGER, BMP, HSTROPN ####[facility] Tzuwnhukox[address] [place], [place] [address]Dr. Garima Pulliam Chloride [Moles/Vol] 106 mmol/L Normal 98-107 [facility] Comment on above: Performed By: #### B CONSTRUCTION SAFETY MANAGER, BMP, HSTROPN ####[facility] Ziomlpvhkb[address] [place], [place] [address]Dr. Garima Pulliam CO2 [Moles/Vol] 31.4 mmol/L Normal 21.0-32.0 [facility] Comment on above: Performed By: #### B CONSTRUCTION SAFETY MANAGER, BMP, HSTROPN ####[facility] Vyhtbrghdc[address] [place], [place] [address]Dr. Garima Pulliam Creatinine [Mass/Vol] 0.75 mg/dL Normal 0.70-1.30 [facility] Comment on above: Performed By: #### B CONSTRUCTION SAFETY MANAGER, BMP, HSTROPN ####[facility] Xvwizgvkgx[address] [place], [place] [address]Dr. Garima Pulliam EGFR-AF AUSTRALIAN >60 Normal >=60 [facility] Comment on above: Performed By: #### B CONSTRUCTION SAFETY MANAGER, BMP, HSTROPN ####[facility] Cyxczfdcbc0[address] [place] [address]Dr. Garima Pulliam EGFR-NON AF AUSTRALIAN >60 Normal >=60 [facility] Comment on above: Performed By: #### B CONSTRUCTION SAFETY MANAGER, BMP, HSTROPN ####[facility] Aecymmbszw9956 [place] [address]Dr. Garima Pulliam Glucose [Mass/Vol] 161 mg/dL Critically high 74-106 T [facility] Comment on above: Performed By: #### B CONSTRUCTION SAFETY MANAGER, BMP, HSTROPN ####[facility] Gxsvyaqsjw0831 [place] [address]Dr. Garima Pulliam Potassium [Moles/Vol] 4.1 mmol/L Normal 3.5-5.1 [facility] Comment on above: Performed By: #### B CONSTRUCTION SAFETY MANAGER, BMP, HSTROPN ####[facility] Qvmhkhihmu2626 [place] [address]Dr. Garima Pulliam Sodium [Moles/Vol] 140 mmol/L Normal 136-145 [facility] Comment on above: Performed By: #### B CONSTRUCTION SAFETY MANAGER, BMP, HSTROPN ####[facility] Rdokxrunmo2652 [place] [address]Dr. Garima Pulliam Urea nitrogen [Mass/Vol] 7.0 mg/dL Normal 7.0-18.0 [facility] Comment on above: Performed By: #### B CONSTRUCTION SAFETY MANAGER, BMP, HSTROPN ####[facility] Nqchfzxhvk8094 [place] [address]Dr. Garima Pulliam Urea nitrogen/Creatinine [Mass ratio] 9.3 mg/mg Normal [facility] Comment on above: Performed By: #### B CONSTRUCTION SAFETY MANAGER, BMP, HSTROPN ####[facility] Fyrpxylxgm64[address] [place], [place] [address]Dr. Garima Pulliam TROPONIN, HIGH SENSITIVITYon 03-16-2023 HSTROP 9.7 pg/mL Normal 4.0-76.1 [facility] Comment on above: Result Comment: CUT- OFF POINTS HAVE BEEN ESTABLISHED BASED ON THE FOURTH UNIVERSAL DEFINITIONS OF MYOCARDIALINFARCTION. THE UPPER REFERENCE LIMIT (URL) OF TROPONIN, DEFINED THE 99TH PERCENTILE OFcTnI DISTRIBUTION IN A REFERENCE POPULATION, HAS BEEN CONFIRMED THE DECISION THRESHOLDFOR MD DIAGNOSIS. Performed By: #### B CONSTRUCTION SAFETY MANAGER, BMP, HSTROPN ####[facility] Qtzktvnwfl7388 [place] [address]Dr. Garima Pulliam XR CHEST 1 Von 03-16-2023 XR CHEST 1 V Normal [facility] BNPon 03-06-2023 Natriuretic peptide B (Bld) [Mass/Vol] 111.0 pg/mL Normal <=900.0 [facility] Comment on above: Performed By: #### C MP, BNP, CK ####[facility] Npmmljokyx8[address] [place], [place] [address]Dr. Garima Heraclio CBC AUTO DIFFon 03-06-2023 BASO # 0.0 103/ul Normal 0.0-0.1 [facility] Comment on above: Performed By: #### C BC ####[facility] Ymrjoiadgo188[address] [place], [place] [address]Dr. Chapisrenu Pulliam Basophils/100 WBC (Bld) 0.2 % Normal 0.2-2.0 [facility] Comment on above: Performed By: #### C BC ####[facility] Rsiijrutrh[address] [place], [place] [address]Dr. Chapisrenu Pulliam EO # 0.3 103/ul Normal 0.0-0.7 [facility] Comment on above: Performed By: #### C BC ####[facility] Awagyqmkdl693[address] [place], [place] [address]Dr. Chapisrenu Pulliam Eosinophils/100 WBC (Bld) 3.5 % Normal 0.9-7.0 [facility] Comment on above: Performed By: #### C BC ####[facility] Ytvdebkhsa388[address] [place], [place] [address]Dr. Garima Heraclio Erythrocyte distribution width (RBC) [Ratio] 13.3 % Normal 11.0-15.0 [facility] Comment on above: Performed By: #### C BC ####[facility] H[address]lhnysms[address] [place], [place] [address]Dr. Chapisrenu Pulliam Hematocrit (Bld) [Volume fraction] 43.7 % Normal 42.0-54.0 [facility] Comment on above: Performed By: #### C BC ####[facility] Ztvufcoqsu2852 [place] [address]Dr. Garima Pulliam Hemoglobin (Bld) [Mass/Vol] 14.7 g/dL Normal 14.0-18.0 [facility] Comment on above: Performed By: #### C BC ####[facility] Xekkfapiwm2614 [place] [address]Dr. Garima Pulliam IG # 0.03 10e3/ul Normal 0.00-0.03 [facility] Comment on above: Performed By: #### C BC ####[facility] Gxnpkgdwsu3326 [place] [address]Dr. Garima Pulliam IG % 0.4 % Normal 0.0-0.5 [facility] Comment on above: Performed By: #### C BC ####[facility] Xmvyhirfxa[address] [place], [place] [address]Dr. Garima Pulliam LYMPH # 2.0 103/ul Normal 1.2-3.8 [facility] Comment on above: Performed By: #### C BC ####[facility] [address]qnfxduecw[address] [place], [place] [address]Dr. Garima Pulliam Lymphocytes/100 WBC (Bld) 23.7 % Normal 20.5-60.0 [facility] Comment on above: Performed By: #### C BC ####[facility] [address]ghfl[address] [place], [place] [address]Dr. Garima Pulliam MANUAL DIFF REQ NO Normal [facility] Comment on above: Performed By: #### C BC ####[facility] Jictwyrrol[address] [place], [place] [address]Dr. Garima Pulliam MCH (RBC) [Entitic mass] 30.1 pg Normal 25.9-34.0 [facility] Comment on above: Performed By: #### C BC ####[facility] Smmyisxnfi209[address] [place], [place] [address]Dr. Garima Pulliam MCHC (RBC) [Mass/Vol] 33.6 g/dL Normal 29.9-35.2 [facility] Comment on above: Performed By: #### C BC ####[facility] [facility] [address] [place] [address]Dr. Garima Pulliam MCV (RBC) [Entitic vol] 89.4 fL Normal 80.0-94.0 [facility] Comment on above: Performed By: #### C BC ####[facility] Fjrnzexg[address] [place], [place] [address]Dr. Garima Pulliam MONO # 0.8 103/ul Normal 0.3-0.8 [facility] Comment on above: Performed By: #### C BC ####[facility] Xnuxuvwbbk[address] [place], [place] [address]Dr. Garima Pulliam Monocytes/100 WBC (Bld) 9.0 % Normal 1.7-12.0 [facility] Comment on above: Performed By: #### C BC ####[facility] Ipzwtbqfrd[address] [place], [place] [address]Dr. Garima Pulliam NEUT # 5.4 103/ul Normal 1.4-6.5 [facility] Comment on above: Performed By: #### C BC ####[facility] I[address]jvhvkkd[address] [place], [place] [address]Dr. Garima Pulliam Neutrophils/100 WBC (Bld) 63.2 % Normal 43.0-75.0 [facility] Comment on above: Performed By: #### C BC ####[facility] Fimsmskrpc[address] [place], [place] [address]Dr. Garima Pulliam Platelet mean volume (Bld) [Entitic vol] 9.0 fL Critically low 9.5-13.5 [facility] Comment on above: Performed By: #### C BC ####[facility] Uyfgbjnhkv370[address] [place], [place] [address]Dr. Garima Pulliam PLT 218 103/ul Normal 150-450 [facility] Comment on above: Performed By: #### C BC ####[facility] Zvylgkjptp[address] [place], [place] [address]Dr. Garima Pulliam RBC 4.89 106/ul Normal 4.70-6.10 [facility] Comment on above: Performed By: #### C BC ####[facility] Sgutfnkwsb[address] [place] [address]Dr. Garima Pulliam WBC 8.5 103/ul Normal 4.0-11.0 [facility] Comment on above: Performed By: #### C BC ####[facility] Eqsgibzqub[address] [place] [address]Dr. Garima Heraclio CPKon 03-06-2023 CK [Catalytic activity/Vol] 191 U/L Normal 39-308 [facility] Comment on above: Performed By: #### C MP, BNP, CK ####[facility] Jmscurfdpb915[address] [place], [place] [address]Dr. Garima Pulliam PROF 14(COMP METB)on 023 Albumin [Mass/Vol] 3.6 g/dL Normal 3.4-5.0 [facility] Comment on above: Performed By: #### C MP, BNP, CK ####[facility] Zsdczioqeo[address] [place] [address]Dr. Garima Pulliam Albumin/Globulin [Mass ratio] 1.2 {ratio} Normal [facility] Comment on above: Performed By: #### C MP, BNP, CK ####[facility] Ggjxtpbolj[address] [place], [place] [address]Dr. Garima Pulliam ALP [Catalytic activity/Vol] 91 U/L Normal 46-116 [facility] Comment on above: Performed By: #### C MP, BNP, CK ####[facility] Fdkuztsabh[address] [place] [address]Dr. Garima Pulliam ALT [Catalytic activity/Vol] 33 U/L Normal 16-63 [facility] Comment on above: Performed By: #### C MP, BNP, CK ####[facility] Jlkubzbfpf022[address] [place], [place] [address]Dr. Garima Pulliam Anion gap [Moles/Vol] 10.3 mmol/L Normal [facility] Comment on above: Performed By: #### C MP, BNP, CK ####[facility] Utxlwsghxi[address] [place] [address]Dr. Garima Pulliam AST [Catalytic activity/Vol] 17 U/L Normal 15-37 [facility] Comment on above: Performed By: #### C MP, BNP, CK ####[facility] [address]ch[address]ysfij[address] [place] [address]Dr. Garima Pulliam Bilirubin [Mass/Vol] 0.4 mg/dL Normal 0.2-1.0 [facility] Comment on above: Performed By: #### C MP, BNP, CK ####[facility] Gwrfrfffjp55[address] [place] [address]Dr. Garima Pulliam Calcium [Mass/Vol] 9.1 mg/dL Normal 8.5-10.1 [facility] Comment on above: Performed By: #### C MP, BNP, CK ####[facility] Ggoqjmgxey416[address] [place], [place] [address]Dr. Garima Pulliam Chloride [Moles/Vol] 102 mmol/L Normal 98-107 [facility] Comment on above: Performed By: #### C MP, BNP, CK ####[facility] Xyvufsmmtc39[address] [place], [place] [address]Dr. Garima Pulliam CO2 [Moles/Vol] 29.7 mmol/L Normal 21.0-32.0 The [facility] Comment on above: Performed By: #### C MP, BNP, CK ####[facility] Tvwovxppgb344[address] [place], [place] [address]Dr. Garima Pulliam Creatinine [Mass/Vol] 0.79 mg/dL Normal 0.70-1.30 [facility] Comment on above: Performed By: #### C MP, BNP, CK ####[facility] [address]qlmjztu[address] [place] [address]Dr. Garima Pulliam EGFR-AF AUSTRALIAN >60 Normal >=60 [facility] Comment on above: Performed By: #### C MP, BNP, CK ####[facility] [address] [place] [address]Dr. Garima Pulliam EGFR-NON AF AUSTRALIAN >60 Normal >=60 [facility] Comment on above: Performed By: #### C MP, BNP, CK ####[facility] Wepdstdefk[address] [place] [address]Dr. Garima Pulliam Globulin (S) [Mass/Vol] 3.0 g/dL Normal [facility] Comment on above: Performed By: #### C MP, BNP, CK ####[facility] Hjyufbhbkx[address] [place] [address]Dr. Garima Pulliam Glucose [Mass/Vol] 202 mg/dL Critically high 74-106 [facility] Comment on above: Performed By: #### C MP, BNP, CK ####[facility] Yuxuxxmfiq[address] [place] [address]Dr. Garima Pulliam Potassium [Moles/Vol] 4.0 mmol/L Normal 3.5-5.1 [facility] Comment on above: Performed By: #### C MP, BNP, CK ####[facility] Rcqkezinlx310[address] [place], [place] [address]Dr. Garima Pulliam Protein [Mass/Vol] 6.6 g/dL Normal 6.4-8.2 The [facility] Comment on above: Performed By: #### C MP, BNP, CK ####[facility] Lyclvxbrej467[address] [place], [place] [address]Dr. Garima Pulliam Sodium [Moles/Vol] 138 mmol/L Normal 136-145 [facility] Comment on above: Performed By: #### C MP, BNP, CK ####[facility] Srmayledvg206[address] [place], [place] [address]Dr. Garima Pulliam Urea nitrogen [Mass/Vol] 10.0 mg/dL Normal 7.0-18.0 [facility] Comment on above: Performed By: #### C MP, BNP, CK ####[facility] Xlyhumpekl999[address] [place], [place] [address]Dr. Garima Pulliam Urea nitrogen/Creatinine [Mass ratio] 12.7 mg/mg Normal [facility] Comment on above: Performed By: #### C MP, BNP, CK ####[facility] Sdbpbezyna[address] [place], [place] [address]DrAdalberto Pulliam US VERONICA DOP LEG BILon 03-06- 023 US VERONICA DOP LEG BENOIT Normal [facility] CBC AUTO DIFFon 01-13-2023 BASO # 0.0 103/ul Normal 0.0-0.1 [facility] Comment on above: Performed By: #### C BC ####[facility] Wtbctjdvha6996 [place] [address]DrAdalberto Pulliam Basophils/100 WBC (Bld) 0.0 % Critically low 0.2-2.0 [facility] Comment on above: Performed By: #### C BC ####[facility] S[address]clvdxsbk[address] [place], [place] [address]DrAdalberto Pulliam EO # 0.0 103/ul Normal 0.0-0.7 [facility] Comment on above: Performed By: #### C BC ####[facility] Utnlzkedoe[address] [place] [address]DrAdalberto Pulliam Eosinophils/100 WBC (Bld) 0.0 % Critically low 0.9-7.0 [facility] Comment on above: Performed By: #### C BC ####[facility] Zsjblgiasf[address] [place], [place] [address]DrAdalberto Pulliam Erythrocyte distribution width (RBC) [Ratio] 13.2 % Normal 11.0-15.0 [facility] Comment on above: Performed By: #### C BC ####[facility] Kueqhwmkfa418[address] [place], [place] [address]DrAdalberto Pulliam Hematocrit (Bld) [Volume fraction] 46.7 % Normal 42.0-54.0 [facility] Comment on above: Performed By: #### C BC ####[facility] Qnegcrkfkt4256 [place] [address]DrAdalberto Pulliam Hemoglobin (Bld) [Mass/Vol] 15.6 g/dL Normal 14.0-18.0 [facility] Comment on above: Performed By: #### C BC ####[facility] Otmuxrxpar[address] [place], [place] [address]DrAdalberto Pulliam IG # 0.01 10e3/ul Normal 0.00-0.03 [facility] Comment on above: Performed By: #### C BC ####[facility] Otesfvgqwm16[address] [place] [address]DrAdalberto Chapisrenu Pulliam IG % 0.2 % Normal 0.0-0.5 [facility] Comment on above: Performed By: #### C BC ####[facility] T[address]jwsbjx25[address] [place] [id number] Pulliam LYMPH # 0.8 103/ul Critically low 1.2-3.8 [facility] Comment on above: Performed By: #### C BC ####[facility] Wpqodocdlc7761 [place] [address]DrAdalberto Pulliam Lymphocytes/100 WBC (Bld) 12.7 % Critically low 20.5-60.0 [facility] Comment on above: Performed By: #### C BC ####[facility] Qbapgsqzjz4546 [place] [address]DrAdalberto Pulliam MANUAL DIFF REQ NO Normal [facility] Comment on above: Performed By: #### C BC ####[facility] Qmynkegihi6451 [place] [id number] Garima Heraclio MCH (RBC) [Entitic mass] 30.2 pg Normal 25.9-34.0 [facility] Comment on above: Performed By: #### C BC ####[facility] Tmeaqkaukw39[address] [place] [id number] Pulliam MCHC (RBC) [Mass/Vol] 33.4 g/dL Normal 29.9-35.2 [facility] Comment on above: Performed By: #### C BC ####[facility] Ddaoooibww[address]01 [place] [id number] Pulliam MCV (RBC) [Entitic vol] 90.3 fL Normal 80.0-94.0 [facility] Comment on above: Performed By: #### C BC ####[facility] Uejlmeuwic9[address] [place] [id number] Pulliam MONO # 0.1 103/ul Critically low 0.3-0.[address] [facility] Comment on above: Performed By: #### C BC ####[facility] Bxvzgstfjy5948 [place] [address]Dr. Garima Pulliam Monocytes/100 WBC (Bld) 0.9 % Critically low 1.7-12.0 [facility] Comment on above: Performed By: #### C BC ####[facility] Nfrfcrktuf7071 [place] [id number]. Garima Pulliam NEUT # 5.6 103/ul Normal 1.4-6.5 [facility] Comment on above: Performed By: #### C BC ####[facility] Xvtridsbfa2394 [place] [address]Dr. Garima Pulliam Neutrophils/100 WBC (Bld) 86.2 % Critically high 43.0-75.0 [facility] Comment on above: Performed By: #### C BC ####[facility] Mvbxpexvaj2309 [place] [address]Dr. Garima Pulliam Platelet mean volume (Bld) [Entitic vol] 9.1 fL Critically low 9.5-13.5 [facility] Comment on above: Performed By: #### C BC ####[facility] Zbpicpqnus173[address] [place], [place] [address]Dr. Garima Pulliam PLT 169 103/ul Normal 150-450 [facility] Comment on above: Performed By: #### C BC ####[facility] Wreomochui[address] [place] [address]Dr. Garima Pulliam RBC 5.17 106/ul Normal 4.70-6.10 [facility] Comment on above: Performed By: #### C BC ####[facility] Shrqnvxxrn6297 [place] [id number]. Garima Pulliam WBC 6.5 103/ul Normal 4.0-11.0 [facility] Comment on above: Performed By: #### C BC ####[facility] Qqztupydmn0999 [place] [address]Dr. Garima Pulliam D-DIMERon 01-13-2023 D-DIMER 0.41 mg/L FEU Normal <=0.59 [facility] Comment on above: Performed By: #### D DIM ####[facility] Zffbkzenqk4277 [place] [address]Dr. Garima Pulliam D-DIMER COMMENTS SEE BELOW Normal [facility] Comment on above: Result Comment: Incr [...] generalized hospitalization. Performed By: #### D DIM ####[facility] Yqnykmanvf[address] [place], [place] [address]Dr. Garima Pulliam PROF 14(COMP METB)on 023 Albumin [Mass/Vol] 3.4 g/dL Normal 3.4-5.0 [facility] Comment on above: Performed By: #### C MP ####[facility] Zoxoyfqclo209[address] [place], [place] [address]Dr. Garima Pulliam Albumin/Globulin [Mass ratio] 1.3 {ratio} Normal [facility] Comment on above: Performed By: #### C MP ####[facility] Rdwbtrzhoo408[address] [place], [place] [address]Dr. Garima Pulliam ALP [Catalytic activity/Vol] 83 U/L Normal 46-116 [facility] Comment on above: Performed By: #### C MP ####[facility] Fsbbdigzmd9281 [place] [address]Dr. Garima Pulliam ALT [Catalytic activity/Vol] 25 U/L Normal 16-63 [facility] Comment on above: Performed By: #### C MP ####[facility] Mpkidfixry5383 [place] [address]Dr. Garima Pulliam Anion gap [Moles/Vol] 14.5 mmol/L Normal [facility] Comment on above: Performed By: #### C MP ####[facility] Zkmpbkollf9210 [place] [phone]. Garima Pulliam AST [Catalytic activity/Vol] 19 U/L Normal 15-37 [facility] Comment on above: Performed By: #### C MP ####[facility] Chozpqckax5293 [place] [phone]. Garima Pulliam Bilirubin [Mass/Vol] 0.4 mg/dL Normal 0.2-1.0 [facility] Comment on above: Performed By: #### C MP ####[facility] Glbpivoequ3297 [place] [phone]. Garima Pulliam Calcium [Mass/Vol] 8.7 mg/dL Normal 8.5-10.1 [facility] Comment on above: Performed By: #### C MP ####[facility] Qwwbuswtvl[address] [place], [place] [id number]. Garima Pulliam Chloride [Moles/Vol] 104 mmol/L Normal 98-107 [facility] Comment on above: Performed By: #### C MP ####[facility] Renfamjzxx[address] [place], [place] [id number]. Garima Pulliam CO2 [Moles/Vol] 24.5 mmol/L Normal 21.0-32.0 The [facility] Comment on above: Performed By: #### C MP ####[facility] Urrcbaqgri[address] [place], [place] [id number]. Garima Pulliam Creatinine [Mass/Vol] 0.70 mg/dL Normal 0.70-1.30 [facility] Comment on above: Performed By: #### C MP ####[facility] Mbjoyjtpwg0360 [place] [id number]. Garima Heraclio EGFR-AF AUSTRALIAN >60 Normal >=60 [facility] Comment on above: Performed By: #### C MP ####[facility] Cprsicmsyi[address] [place], [place] [id number]. Chapisrenu Heraclio EGFR-NON AF AUSTRALIAN >60 Normal >=60 [facility] Comment on above: Performed By: #### C MP ####[facility] Icpdskeewa[address] [place], [place] [id number]. Garima Pulliam Globulin (S) [Mass/Vol] 2.6 g/dL Normal [facility] Comment on above: Performed By: #### C MP ####[facility] Rznhyswvow187[address] [place], [place] [address]Dr. Garima Pulliam Glucose [Mass/Vol] 196 mg/dL Critically high 74-106 [facility] Comment on above: Performed By: #### C MP ####[facility] Bnsxvhwjgf65[address] [place], [place] [address]Dr. Garima Pulliam Potassium [Moles/Vol] 4.0 mmol/L Normal 3.5-5.1 [facility] Comment on above: Performed By: #### C MP ####[facility] Rfcrosduir17[address] [place], [place] [address]Dr. Garima Pulliam Protein [Mass/Vol] 6.0 g/dL Critically low 6.4-8.2 Th [facility] Comment on above: Performed By: #### C MP ####[facility] Elhyhmtfqd167[address] [place], [place] [address]Dr. Garima Pulliam Sodium [Moles/Vol] 139 mmol/L Normal 136-145 [facility] Comment on above: Performed By: #### C MP ####[facility] Lhjqpkdzbv02[address] [place], [place] [address]Dr. Garima Pulliam Urea nitrogen [Mass/Vol] 7.0 mg/dL Normal 7.0-18.0 [facility] Comment on above: Performed By: #### C MP ####[facility] Malpktbzew[address] [place], [place] [address]Dr. Garima Pulliam Urea nitrogen/Creatinine [Mass ratio] 10.0 mg/mg Normal [facility] Comment on above: Performed By: #### C MP ####[facility] Dzujdevioh140[address] [place], [place] [address]Dr. Garima Pulliam BNPon 01-12-2023 Natriuretic peptide B (Bld) [Mass/Vol] 141.0 pg/mL Normal <=900.0 [facility] Comment on above: Performed By: #### C MP, BNP, HSTROPN ####[facility] Zabzodnlgt5231 [place] [id number]. Garima Heraclio CBC AUTO DIFFon 01-12-2023 BASO # 0.0 103/ul Normal 0.0-0.1 [facility] Comment on above: Performed By: #### C BC ####[facility] W[address]avlxrlqe[address] [place], [place] [id number]. Garima Pulliam Basophils/100 WBC (Bld) 0.2 % Normal 0.2-2.0 [facility] Comment on above: Performed By: #### C BC ####[facility] Wvrhbdigzr194[address] [place], [place] [address]Dr. Garima Pulliam EO # 0.2 103/ul Normal 0.0-0.7 [facility] Comment on above: Performed By: #### C BC ####[facility] Pavtvxuewn210[address] [place], [place] [address]Dr. Garima Pulliam Eosinophils/100 WBC (Bld) 2.7 % Normal 0.9-7.0 [facility] Comment on above: Performed By: #### C BC ####[facility] Msyjbrpaha[address] [place], [place] [address]Dr. Chapisrenu Pulliam Erythrocyte distribution width (RBC) [Ratio] 13.3 % Normal 11.0-15.0 [facility] Comment on above: Performed By: #### C BC ####[facility] Tvhvqvlcoc[address] [place], [place] [address]Dr. Garima Pulliam Hematocrit (Bld) [Volume fraction] 42.3 % Normal 42.0-54.0 [facility] Comment on above: Performed By: #### C BC ####[facility] Gckqkombrp[address] [place], [place] [address]Dr. Garima Pulliam Hemoglobin (Bld) [Mass/Vol] 14.3 g/dL Normal 14.0-18.0 [facility] Comment on above: Performed By: #### C BC ####[facility] Ayhflziwvr057[address] [place], [place] [address]Dr. Garima Pulliam IG # 0.02 10e3/ul Normal 0.00-0.03 [facility] Comment on above: Performed By: #### C BC ####[facility] Ynsucsllld5841 [place] [id number]. Chapisrenu Pulliam IG % 0.2 % Normal 0.0-0.5 [facility] Comment on above: Performed By: #### C BC ####[facility] Wtisgppqze0584 [place] [id number]. Garima Pulliam LYMPH # 2.6 103/ul Normal 1.2-3.8 [facility] Comment on above: Performed By: #### C BC ####[facility] Dhiendrlzo7090 [place] [address]Dr. Chapisrenu Pulliam Lymphocytes/100 WBC (Bld) 29.6 % Normal 20.5-60.0 [facility] Comment on above: Performed By: #### C BC ####[facility] Ymzdnfildv7655 [place] [address]Dr. Garima Pulliam MANUAL DIFF REQ NO Normal [facility] Comment on above: Performed By: #### C BC ####[facility] Ogekvtqvkx6209 [place] [id number]. Garima Pulliam MCH (RBC) [Entitic mass] 30.2 pg Normal 25.9-34.0 [facility] Comment on above: Performed By: #### C BC ####[facility] Myldxnwbjp4381 [place] [id number]. Garima Pulliam MCHC (RBC) [Mass/Vol] 33.8 g/dL Normal 29.9-35.2 [facility] Comment on above: Performed By: #### C BC ####[facility] Pgugeksquq0581 [place] [id number]. Garima Pulliam MCV (RBC) [Entitic vol] 89.2 fL Normal 80.0-94.0 [facility] Comment on above: Performed By: #### C BC ####[facility] Xzmxcddwou[address] [place], [place] [id number]. Garima Pulliam MONO # 0.7 103/ul Normal 0.3-0.8 [facility] Comment on above: Performed By: #### C BC ####[facility] Yuwdukkrfk2507 [place] [id number]. Garima Pulliam Monocytes/100 WBC (Bld) 8.3 % Normal 1.7-12.0 [facility] Comment on above: Performed By: #### C BC ####[facility] [address]cazmbmdik[address] [place] [id number]. Garima Pulliam NEUT # 5.1 103/ul Normal 1.4-6.5 [facility] Comment on above: Performed By: #### C BC ####[facility] Xxogjmxaiz5728 [place] [id number]. Garima Pulliam Neutrophils/100 WBC (Bld) 59.0 % Normal 43.0-75.0 [facility] Comment on above: Performed By: #### C BC ####[facility] Gjfylucncn[address] [place] [address]Dr. Garima Pulliam Platelet mean volume (Bld) [Entitic vol] 8.7 fL Critically low 9.5-13.5 [facility] Comment on above: Performed By: #### C BC ####[facility] Aktvswstjm6033 [place] [id number]. Garima Pulliam PLT 182 103/ul Normal 150-450 [facility] Comment on above: Performed By: #### C BC ####[facility] Derwzzjtne7086 [place] [id number]. Garima Pulliam RBC 4.74 106/ul Normal 4.70-6.10 [facility] Comment on above: Performed By: #### C BC ####[facility] Geionzvjny[address] [place], [place] [id number]. Garima Pulliam WBC 8.7 103/ul Normal 4.0-11.0 [facility] Comment on above: Performed By: #### C BC ####[facility] Hbjdcrdqeu[address] [place], [place] [id number]. Garima Pulliam [facility]25 SARS-CoV-2 (COVID-19) RNA MARIE+probe Ql (Unsp spec) Not detected Normal NOT DETECTED [facility] Comment on above: Result Comment: When diagnostic [...] for this test is supported by the [place] of Health and Human Service's declaration that [...] longer be used). Performed By: #### C VDTB ####[facility] Xfjpxfcocu9537 [place] [address]Dr. Garima Pulliam PROF 14(COMP METB)on 023 Albumin [Mass/Vol] 3.6 g/dL Normal 3.4-5.0 [facility] Comment on above: Performed By: #### C MP, BNP, HSTROPN ####[facility] Zilhqibaxe[address] [place] [address]Dr. Garima Pulliam Albumin/Globulin [Mass ratio] 1.5 {ratio} Normal [facility] Comment on above: Performed By: #### C MP, BNP, HSTROPN ####[facility] Usfcqiflub[address] [place] [address]Dr. Garima Pulliam ALP [Catalytic activity/Vol] 79 U/L Normal 46-116 [facility] Comment on above: Performed By: #### C MP, BNP, HSTROPN ####[facility] Byipzndnfx32[address] [place] [address]Dr. Garima Pulliam ALT [Catalytic activity/Vol] 27 U/L Normal 16-63 [facility] Comment on above: Performed By: #### C MP, BNP, HSTROPN ####[facility] Coaxriniqy1532 [place] [address]Dr. Garima Pulliam Anion gap [Moles/Vol] 11.7 mmol/L Normal Th [facility] Comment on above: Performed By: #### C MP, BNP, HSTROPN ####[facility] Rybqunabns2380 [place] [address]Dr. Garima Pulliam AST [Catalytic activity/Vol] 21 U/L Normal 15-37 [facility] Comment on above: Performed By: #### C MP, BNP, HSTROPN ####[facility] Egsloscfds4942 [place] [address]Dr. Garima Pulliam Bilirubin [Mass/Vol] 0.3 mg/dL Normal 0.2-1.0 [facility] Comment on above: Performed By: #### C MP, BNP, HSTROPN ####[facility] Pewhozbeym[address] [place], [place] [address]Dr. Garima Pulliam Calcium [Mass/Vol] 8.9 mg/dL Normal 8.5-10.1 [facility] Comment on above: Performed By: #### C MP, BNP, HSTROPN ####[facility] Oikvjshdtz[address] [place], [place] [address]Dr. Garima Pulliam Chloride [Moles/Vol] 107 mmol/L Normal 98-107 [facility] Comment on above: Performed By: #### C MP, BNP, HSTROPN ####[facility] Cfxekhifzc[address] [place], [place] [address]Dr. Garima Pulliam CO2 [Moles/Vol] 26.0 mmol/L Normal 21.0-32.0 The [facility] Comment on above: Performed By: #### C MP, BNP, HSTROPN ####[facility] Igrtxcqmhl[address] [place], [place] [address]Dr. Garima Pulliam Creatinine [Mass/Vol] 0.65 mg/dL Critically low 0.70-1.30 [facility] Comment on above: Performed By: #### C MP, BNP, HSTROPN ####[facility] Udcohvzvfc0557 [place] [address]Dr. Garima Pulliam EGFR-AF AUSTRALIAN >60 Normal >=60 [facility] Comment on above: Performed By: #### C MP, BNP, HSTROPN ####[facility] Wizdmgyjtv2558 [place] [address]Dr. Garima Pulliam EGFR-NON AF AUSTRALIAN >60 Normal >=60 [facility] Comment on above: Performed By: #### C MP, BNP, HSTROPN ####[facility] Kkztpvcmpd[address] [place], [place] [address]Dr. Garima Pulliam Globulin (S) [Mass/Vol] 2.4 g/dL Normal [facility] Comment on above: Performed By: #### C MP, BNP, HSTROPN ####[facility] Aacnrqoezk[address] [place], [place] [address]Dr. Garima Pulliam Glucose [Mass/Vol] 85 mg/dL Normal 74-106 [facility] Comment on above: Performed By: #### C MP, BNP, HSTROPN ####[facility] Qhrtxcmssu[address] [place], [place] [address]Dr. Garima Pulliam Potassium [Moles/Vol] 3.7 mmol/L Normal 3.5-5.1 [facility] Comment on above: Performed By: #### C MP, BNP, HSTROPN ####[facility] Elwpvfyznu[address] [place], [place] [address]Dr. Garima Pulliam Protein [Mass/Vol] 6.0 g/dL Critically low 6.4-8.2 [facility] Comment on above: Performed By: #### C MP, BNP, HSTROPN ####[facility] Okqmpnbwmi6[address] [place] [address]Dr. Garima Pulliam Sodium [Moles/Vol] 141 mmol/L Normal 136-145 [facility] Comment on above: Performed By: #### C MP, BNP, HSTROPN ####[facility] Zzhzfhotwd8699 [place] [address]Dr. Garima Pulliam Urea nitrogen [Mass/Vol] 5.0 mg/dL Critically low 7.0-18.0 [facility] Comment on above: Performed By: #### C MP, BNP, HSTROPN ####[facility] Fshrcdgnsb7864 [place] [address]Dr. Garima Pulliam Urea nitrogen/Creatinine [Mass ratio] 7.7 mg/mg Normal [facility] Comment on above: Performed By: #### C MP, BNP, HSTROPN ####[facility] Khzzmnyllc[address] [place] [address]Dr. Garima Pulliam PROTIMEon 01-12-2023 INR Coag (PPP) [Relative time] 1.16 {INR} Normal [facility] Comment on above: Performed By: #### P TT, PT ####[facility] Zpstuwezho[address] [place], [place] [address]Dr. Garima Pulliam INR GUIDELINES SEE BELOW Normal [facility] Comment on above: Result Comment: WESLEY RED INR: 2.0 - 3.0 CONDITIONS NOT LISTED BELOW 2.5 - 3.5 FOR PROSTHETIC HEART VALVE REPLACEMENT 2.5 - 3.5 RECURRENT THROMBOSIS Performed By: #### P TT, PT ####[facility] Rgiyeixgvx[address] [place], [place] [address]Dr. Garima Pulliam PT Coag (PPP) [Time] 12.2 s Critically high 9.0-11.6 [facility] Comment on above: Performed By: #### P TT, PT ####[facility] Qanfcmuoeq[address] [place], [place] [address]Dr. Garima Pulliam PTTon 01-12-2023 aPTT Coag (Bld) [Time] 29.1 s Normal 22.3-36.2 [facility] Comment on above: Performed By: #### P TT, PT ####[facility] Fsbhzfdkxz[address] [place], [place] [address]Dr. Garima Pulliam TROPONIN, HIGH SENSITIVITYon 01-12-2023 HSTROP 10.3 pg/mL Normal 4.0-76.1 [facility] Comment on above: Result Comment: CUT- OFF POINTS HAVE BEEN ESTABLISHED BASED ON THE FOURTH UNIVERSAL DEFINITIONS OF MYOCARDIALINFARCTION. THE UPPER REFERENCE LIMIT (URL) OF TROPONIN, DEFINED THE 99TH PERCENTILE OFcTnI DISTRIBUTION IN A REFERENCE POPULATION, HAS BEEN CONFIRMED THE DECISION THRESHOLDFOR MD DIAGNOSIS. Performed By: #### H STROPN ####[facility] Tfjqdzlltf[address] [place] [address]Dr. Garima Pulliam HSTROP 9.2 pg/mL Normal 4.0-76.1 [facility] Comment on above: Result Comment: CUT- OFF POINTS HAVE BEEN ESTABLISHED BASED ON THE FOURTH UNIVERSAL DEFINITIONS OF MYOCARDIALINFARCTION. THE UPPER REFERENCE LIMIT (URL) OF TROPONIN, DEFINED THE 99TH PERCENTILE OFcTnI DISTRIBUTION IN A REFERENCE POPULATION, HAS BEEN CONFIRMED THE DECISION THRESHOLDFOR MD DIAGNOSIS. Performed By: #### C MP, BNP, HSTROPN ####[facility] Fmpvdpcsse[address] [place], [place] [address]Dr. Garima Pulliam XR CHEST 1 Von 01-12-2023 XR CHEST 1 V Normal [facility] XR CHEST 1 Von 01-01-2023 XR CHEST 1 V Normal [facility] CARDIAC NASH 3-6on 3 CK [Catalytic activity/Vol] 196 U/L Normal 39-308 [facility] Comment on above: Performed By: #### C MREP ####[facility] Bacnxanozd178[address] [place], [place] [address]Dr. Garima Pulliam CK.MB [Mass/Vol] 7.41 ng/mL Critically high <=3.60 [facility] Comment on above: Performed By: #### C MREP ####[facility] Oockjyjrrk[address] [place] [address]Dr. Garima Pulliam HSTROP 10.3 pg/mL Normal 4.0-76.1 [facility] Comment on above: Result Comment: CUT- OFF POINTS HAVE BEEN ESTABLISHED BASED ON THE FOURTH UNIVERSAL DEFINITIONS OF MYOCARDIALINFARCTION. THE UPPER REFERENCE LIMIT (URL) OF TROPONIN, DEFINED THE 99TH PERCENTILE OFcTnI DISTRIBUTION IN A REFERENCE POPULATION, HAS BEEN CONFIRMED THE DECISION THRESHOLDFOR MD DIAGNOSIS. Performed By: #### C MREP ####[facility] Zfxwnyitmr9865 [place] [address]Dr. Garima Pulliam XR CHEST 1 Von 12-26-2022 XR CHEST 1 V Normal [facility] BNPon 12-25-2022 Natriuretic peptide B (Bld) [Mass/Vol] 98.0 pg/mL Normal <=900.0 [facility] Comment on above: Performed By: #### B CONSTRUCTION SAFETY MANAGER, BMP, CMADM ####[facility] Fqdnaespqd31[address] [place] [id number]. Garima Pulliam CARDIAC NASH ADMITon 023 CK [Catalytic activity/Vol] 208 U/L Normal 39-308 [facility] Comment on above: Performed By: #### B CONSTRUCTION SAFETY MANAGER, BMP, CMADM ####[facility] Qnyymqbwfs8347 [place] [address]Dr. Garima Pulliam CK.MB [Mass/Vol] 7.63 ng/mL Critically high <=3.60 [facility] Comment on above: Performed By: #### B CONSTRUCTION SAFETY MANAGER, BMP, CMADM ####[facility] Bgzidakvpu8174 [place] [address]Dr. Garima Pulliam HSTROP 8.8 pg/mL Normal 4.0-76.1 [facility] Comment on above: Result Comment: CUT- OFF POINTS HAVE BEEN ESTABLISHED BASED ON THE FOURTH UNIVERSAL DEFINITIONS OF MYOCARDIALINFARCTION. THE UPPER REFERENCE LIMIT (URL) OF TROPONIN, DEFINED THE 99TH PERCENTILE OFcTnI DISTRIBUTION IN A REFERENCE POPULATION, HAS BEEN CONFIRMED THE DECISION THRESHOLDFOR MD DIAGNOSIS. Performed By: #### B CONSTRUCTION SAFETY MANAGER, BMP, CMADM ####[facility] Jkvmjlhbmk2778 [place] [address]Dr. Garima Pulliam DORIS 83 ng/mL Normal 16-96 [facility] Comment on above: Performed By: #### B CONSTRUCTION SAFETY MANAGER, BMP, CMADM ####[facility] Inctviplzu3623 [place] [id number]. Garima Pulliam CBC AUTO DIFFon 12-25-2022 BASO # 0.0 103/ul Normal 0.0-0.1 [facility] Comment on above: Performed By: #### C BC ####[facility] Qdqlqwdque9813 [place] [address]Dr. Garima Pulliam Basophils/100 WBC (Bld) 0.0 % Critically low 0.2-2.0 [facility] Comment on above: Performed By: #### C BC ####[facility] P[address]kmwqsln[address] [place], [place] [address]Dr. Chapisrenu Pulliam EO # 0.0 103/ul Normal 0.0-0.7 [facility] Comment on above: Performed By: #### C BC ####[facility] [address]btroefz[address] [place], [place] [address]Dr. Garima Pulliam Eosinophils/100 WBC (Bld) 0.7 % Critically low 0.9-7.0 [facility] Comment on above: Performed By: #### C BC ####[facility] [address]oufokkfg[address] [place], [place] [address]Dr. Garima Pulliam Erythrocyte distribution width (RBC) [Ratio] 13.4 % Normal 11.0-15.0 [facility] Comment on above: Performed By: #### C BC ####[facility] Qobryfgpqr[address] [place], [place] [address]Dr. Garima Pulliam Hematocrit (Bld) [Volume fraction] 42.9 % Normal 42.0-54.0 [facility] Comment on above: Performed By: #### C BC ####[facility] Gbstbbwtnu990[address] [place], [place] [address]Dr. Chapisrenu Pulliam Hemoglobin (Bld) [Mass/Vol] 14.4 g/dL Normal 14.0-18.0 [facility] Comment on above: Performed By: #### C BC ####[facility] Hjdnheuyzl[address] [place], [place] [address]Dr. Garima Pulliam IG # 0.00 10e3/ul Normal 0.00-0.03 [facility] Comment on above: Performed By: #### C BC ####[facility] Nvbuhvnzvb[address] [place], [place] [address]Dr. Garima Pulliam IG % 0.0 % Normal 0.0-0.5 [facility] Comment on above: Performed By: #### C BC ####[facility] Rwtiryouni212[address] [place], [place] [address]Dr. Garima Pulliam LYMPH # 2.4 103/ul Normal 1.2-3.8 [facility] Comment on above: Performed By: #### C BC ####[facility] Vgwqzkmrhh7976 [place] [address]Dr. Garima Pulliam Lymphocytes/100 WBC (Bld) 29.2 % Normal 20.5-60.0 [facility] Comment on above: Performed By: #### C BC ####[facility] Ezfaldkvfk0882 [place] [address]Dr. Garima Pulliam MANUAL DIFF REQ NO Normal [facility] Comment on above: Performed By: #### C BC ####[facility] Dtsfywdcyl6156 [place] [address]Dr. Garima Pulliam MCH (RBC) [Entitic mass] 30.7 pg Normal 25.9-34.0 [facility] Comment on above: Performed By: #### C BC ####[facility] Dfavvzbyjn[address] [place], [place] [address]Dr. Garima Pulliam MCHC (RBC) [Mass/Vol] 33.6 g/dL Normal 29.9-35.2 [facility] Comment on above: Performed By: #### C BC ####[facility] Ywkafqukjl[address] [place], [place] [address]Dr. Garima Pulliam MCV (RBC) [Entitic vol] 91.5 fL Normal 80.0-94.0 [facility] Comment on above: Performed By: #### C BC ####[facility] Wbppowbnsm5036 [place] [address]Dr. Garima Pulliam MONO # 0.0 103/ul Critically low 0.3-0.8 [facility] Comment on above: Performed By: #### C BC ####[facility] Bqcyasfwlo8691 [place] [address]Dr. Garima Pulliam Monocytes/100 WBC (Bld) 8.0 % Normal 1.7-12.0 [facility] Comment on above: Performed By: #### C BC ####[facility] Bfshwmqtqn6368 [place] [address]Dr. Garima Pulliam NEUT # 5.1 103/ul Normal 1.4-6.5 [facility] Comment on above: Performed By: #### C BC ####[facility] Kllrhpbwvw2444 [place] [id number]. Garima Pulliam Neutrophils/100 WBC (Bld) 62.8 % Normal 43.0-75.0 [facility] Comment on above: Performed By: #### C BC ####[facility] Zyodjwtfin7621 [place] [id number]. Garima Pulliam Platelet mean volume (Bld) [Entitic vol] 8.6 fL Critically low 9.5-13.5 [facility] Comment on above: Performed By: #### C BC ####[facility] Ipmtktrkmq5538 [place] [id number]. Garima Pulliam PLT 200 103/ul Normal 150-450 [facility] Comment on above: Performed By: #### C BC ####[facility] Clkonaonii9784 [place] [id number]. Garima Pulliam RBC 4.69 106/ul Critically low 4.70-6.10 [facility] Comment on above: Performed By: #### C BC ####[facility] Cuiaxmvgid9349 [place] [id number]. Garima Pulliam WBC 8.2 103/ul Normal 4.0-11.0 [facility] Comment on above: Performed By: #### C BC ####[facility] Rqjlokmabq0264 [place] [id number]. Garima Pulliam [facility]on SARS-CoV-2 (COVID-19) RNA MARIE+probe Ql (Unsp spec) Not detected Normal NOT DETECTED [facility] Comment on above: Result Comment: When diagnostic [...] for this test is supported by the [place] of Health and Human Service's declaration that [...] be used). Performed By: #### C VDTBH ####[facility] Ajalwcheuf[address] [place], [place] [address]Dr. Garima Pulliam INFLUENZA A AND B AGon 12-25 INFLUANE SEE BELOW Normal [facility] Comment on above: Result Comment: Nega tive for Flu A protein angiten. Infection due to Flu A cannot be ruled out. Flu A angiten in the sample may be below the detection limit of the test. Performed By: #### I NFLUAB ####[facility] M[address] [place] [address]. Garima Pulliam INFLUBNEGH SEE BELOW Normal [facility] Comment on above: Result Comment: Nega tive for Flu B protein antigen. Infection due to Flu B cannot be ruled out. Flu B antigen in the sample may be below the detection limit of the test. Performed By: #### I NFLUAB ####[facility] Gqarxsqcyi[address] [place], [place] [address]Dr. Garima Pulliam INFLUENZA A AG Negative Normal NEGATIVE SEE COMMENT [facility] Comment on above: Performed By: #### I NFLUAB ####[facility] Jqmulelyto[address] [place], [place] [address]Dr. Garima Pulliam INFLUENZA B AG Negative Normal NEGATIVE SEE COMMENT [facility] Comment on above: Performed By: #### I NFLUAB ####[facility] [address]vsqrgaiy[address] [place] [address]. Garima Pulliam PROF CHEM 8 (BAS METB)on Anion gap [Moles/Vol] 11.1 mmol/L Normal Th [facility] Comment on above: Performed By: #### B CONSTRUCTION SAFETY MANAGER, BMP, CMADM ####[facility] Fhtytijwwz1261 [place] [id number]. Garima Pulliam Calcium [Mass/Vol] 8.5 mg/dL Normal 8.5-10.1 [facility] Comment on above: Performed By: #### B CONSTRUCTION SAFETY MANAGER, BMP, CMADM ####[facility] Gewdynnwde0420 [place] [id number]. Garima Pulliam Chloride [Moles/Vol] 106 mmol/L Normal 98-107 [facility] Comment on above: Performed By: #### B CONSTRUCTION SAFETY MANAGER, BMP, CMADM ####[facility] Jqykujdipu3189 [place] [address]Dr. Garima Pulliam CO2 [Moles/Vol] 27.4 mmol/L Normal 21.0-32.0 [facility] Comment on above: Performed By: #### B CONSTRUCTION SAFETY MANAGER, BMP, CMADM ####[facility] Zoyxvkrorm9218 [place] [address]Dr. Garima Pulliam Creatinine [Mass/Vol] 0.65 mg/dL Critically low 0.70-1.30 [facility] Comment on above: Performed By: #### B CONSTRUCTION SAFETY MANAGER, BMP, CMADM ####[facility] Nymvmbtply1106 [place] [address]Dr. Garima Pulliam EGFR-AF AUSTRALIAN >60 Normal >=60 [facility] Comment on above: Performed By: #### B CONSTRUCTION SAFETY MANAGER, BMP, CMADM ####[facility] Fapoiflmsr[address]31 [place] [address]Dr. Garima Pulliam EGFR-NON AF AUSTRALIAN >60 Normal >=60 [facility] Comment on above: Performed By: #### B CONSTRUCTION SAFETY MANAGER, BMP, CMADM ####[facility] Dccysuyavf0493 [place] [address]Dr. Garima Pulliam Glucose [Mass/Vol] 140 mg/dL Critically high 74-106 [facility] Comment on above: Performed By: #### B CONSTRUCTION SAFETY MANAGER, BMP, CMADM ####[facility] Jwxljfjjtq9257 [place] [address]Dr. Garima Pulliam Potassium [Moles/Vol] 3.5 mmol/L Normal 3.5-5.1 [facility] Comment on above: Performed By: #### B CONSTRUCTION SAFETY MANAGER, MARVIN, CMAANA ROSA ####[facility] Bzdxfjtcqo3167 [place] [address]Dr. Garima Pulliam Sodium [Moles/Vol] 141 mmol/L Normal 136-145 [facility] Comment on above: Performed By: #### B CONSTRUCTION SAFETY MANAGER, MARVIN, CMAANA ROSA ####[facility] Vssfhlrzzg4247 [place] [address]Dr. Chapisrenu Pulliam Urea nitrogen [Mass/Vol] 8.0 mg/dL Normal 7.0-18.0 [facility] Comment on above: Performed By: #### B CONSTRUCTION SAFETY MANAGERMARVIN CMADM ####[facility] Cplaqelavj2974 [place] [address]Dr. Garima Pulliam Urea nitrogen/Creatinine [Mass ratio] 12.3 mg/mg Normal [facility] Comment on above: Performed By: #### B MARVIN FRENCH, CMAANA ROSA ####[facility] Ehjakydmad[address] [place], [place] [address]Dr. Garima Pulliam CARDIAC NASH ADMITon 023 CK [Catalytic activity/Vol] 165 U/L Normal 39-308 [facility] Comment on above: Performed By: #### B NANCY HERNANDEZ ####[facility] Oquwsseuf[address] [place], [place] [address]Dr. Chapisrenu Pulliam CK.MB [Mass/Vol] 6.48 ng/mL Critically high <=3.60 [facility] Comment on above: Performed By: #### B MP, CMADM ####[facility] Alqsvvtazi[address] [place], [place] [address]Dr. Garima Heraclio HSTROP 11.7 pg/mL Normal 4.0-76.1 [facility] Comment on above: Result Comment: CUT- OFF POINTS HAVE BEEN ESTABLISHED BASED ON THE FOURTH UNIVERSAL DEFINITIONS OF MYOCARDIALINFARCTION. THE UPPER REFERENCE LIMIT (URL) OF TROPONIN, DEFINED THE 99TH PERCENTILE OFcTnI DISTRIBUTION IN A REFERENCE POPULATION, HAS BEEN CONFIRMED THE DECISION THRESHOLDFOR MD DIAGNOSIS. Performed By: #### B DAVID, CMADM ####[facility] Jiziretgiv[address] [place] [id number]. Garima Pulliam DORIS 83 ng/mL Normal 16-96 [facility] Comment on above: Performed By: #### B DAVID, ERVINDM ####[facility] Cgtkvuoruo3[address] [place] [id number]. Garima Pulliam CBC AUTO DIFFon 12-10-2022 BASO # 0.0 103/ul Normal 0.0-0.1 [facility] Comment on above: Performed By: #### C BC ####[facility] Pkrvwfraux[address]01 [place] [id number]. Garima Pulliam Basophils/100 WBC (Bld) 0.3 % Normal 0.2-2.0 [facility] Comment on above: Performed By: #### C BC ####[facility] Nhtvqisqln66[address] [place] [id number]. Garima Pulliam EO # 0.1 103/ul Normal 0.0-0.7 [facility] Comment on above: Performed By: #### C BC ####[facility] Pfukptwkjo9732 [place] [id number]. Garima Pulliam Eosinophils/100 WBC (Bld) 0.4 % Critically low 0.9-7.0 [facility] Comment on above: Performed By: #### C BC ####[facility] Jchfavvzua1691 [place] [id number]. Garima Pulliam Erythrocyte distribution width (RBC) [Ratio] 13.2 % Normal 11.0-15.0 [facility] Comment on above: Performed By: #### C BC ####[facility] Vigjiwrtmy7398 [place] [id number]. Garima Pulliam Hematocrit (Bld) [Volume fraction] 42.4 % Normal 42.0-54.0 [facility] Comment on above: Performed By: #### C BC ####[facility] H[address] [place], [place] [id number]. Garima Pulliam Hemoglobin (Bld) [Mass/Vol] 14.4 g/dL Normal 14.0-18.0 [facility] Comment on above: Performed By: #### C BC ####[facility] Znfznbszit3027 [place] [id number]. Garima Pulliam IG # 0.05 10e3/ul Critically high 0.00-0.03 [facility] Comment on above: Performed By: #### C BC ####[facility] Lfkjoiayvv2004 [place] [id number]. Garima Pulliam IG % 0.4 % Normal 0.0-0.5 [facility] Comment on above: Performed By: #### C BC ####[facility] Iuumadjhmu4188 [place] [address]Dr. Garima Pulliam LYMPH # 0.8 103/ul Critically low 1.2-3.8 [facility] Comment on above: Performed By: #### C BC ####[facility] Cgfpufdbfg4576 [place] [address]Dr. Garima Pulliam Lymphocytes/100 WBC (Bld) 6.5 % Critically low 20.5-60.0 [facility] Comment on above: Performed By: #### C BC ####[facility] Xgyhebsrrt0555 [place] [address]Dr. Garima Pulliam MANUAL DIFF REQ NO Normal [facility] Comment on above: Performed By: #### C BC ####[facility] Neidpcbixc4244 [place] [address]Dr. Garima Pulliam MCH (RBC) [Entitic mass] 30.5 pg Normal 25.9-34.0 [facility] Comment on above: Performed By: #### C BC ####[facility] U[address]mlfkv[address] [place], [place] [address]Dr. Garima Pulliam MCHC (RBC) [Mass/Vol] 34.0 g/dL Normal 29.9-35.2 [facility] Comment on above: Performed By: #### C BC ####[facility] Znwcnskdwe1539 [place] [address]Dr. Garima Pulliam MCV (RBC) [Entitic vol] 89.8 fL Normal 80.0-94.0 [facility] Comment on above: Performed By: #### C BC ####[facility] Oupatqgtkq7669 [place] [id number]. Garima Pulliam MONO # 0.2 103/ul Critically low 0.3-0.8 [facility] Comment on above: Performed By: #### C BC ####[facility] Wddghstvej8870 [place] [id number]. Garima Pulliam Monocytes/100 WBC (Bld) 2.0 % Normal 1.7-12.0 [facility] Comment on above: Performed By: #### C BC ####[facility] Npshwtnxdx6936 [place] [id number]. Garima Pulliam NEUT # 10.5 103/ul Critically high 1.4-6.5 [facility] Comment on above: Performed By: #### C BC ####[facility] Odpeatpzfr4794 [place] [id number]. Garima Pulliam Neutrophils/100 WBC (Bld) 90.4 % Critically high 43.0-75.0 [facility] Comment on above: Performed By: #### C BC ####[facility] Yjobvlrpwf9738 [place] [id number]. Garima Pulliam Platelet mean volume (Bld) [Entitic vol] 9.4 fL Critically low 9.5-13.5 [facility] Comment on above: Performed By: #### C BC ####[facility] Hpxvqdixqy5192 [place] [id number]. Garima Pulliam PLT 198 103/ul Normal 150-450 [facility] Comment on above: Performed By: #### C BC ####[facility] Tkjvthabrp3633 [place] [id number]. Garima Pulliam RBC 4.72 106/ul Normal 4.70-6.10 [facility] Comment on above: Performed By: #### C BC ####[facility] Tthwricbnb8985 [place] [id number]. Garima Pulliam WBC 11.6 103/ul Critically high 4.0-11.0 [facility] Comment on above: Performed By: #### C BC ####[facility] Cfcyehvytl4542 [place] [address]Dr. Garima Pulliam PROF CHEM 8 (BAS METB)on Anion gap [Moles/Vol] 11.3 mmol/L Normal [facility] Comment on above: Performed By: #### B DAVID, CMADM ####[facility] Fqzdvltecf4772 [place] [address]Dr. Garima Pulliam Calcium [Mass/Vol] 8.9 mg/dL Normal 8.5-10.1 [facility] Comment on above: Performed By: #### B DAVID, CMADM ####[facility] Wlholfrbua4783 [place] [address]Dr. Garima Pulliam Chloride [Moles/Vol] 103 mmol/L Normal 98-107 [facility] Comment on above: Performed By: #### B DAVID, CMADM ####[facility] Qexrzevvfo4275 [place] [address]Dr. Garima Pulliam CO2 [Moles/Vol] 28.2 mmol/L Normal 21.0-32.0 [facility] Comment on above: Performed By: #### B DAVID, CMADM ####[facility] Uxhnjbmugr6003 [place] [address]Dr. Garima Pulliam Creatinine [Mass/Vol] 0.60 mg/dL Critically low 0.70-1.30 [facility] Comment on above: Performed By: #### Trae HERNANDEZ, CMADM ####[facility] Ucngexcdxq7471 [place] [address]Dr. Garima Pulliam EGFR-AF AUSTRALIAN >60 Normal >=60 [facility] Comment on above: Performed By: #### B DAVID, CMADM ####[facility] Amhdndpfcb8753 [place] [address]Dr. Garima Pulliam EGFR-NON AF AUSTRALIAN >60 Normal >=60 [facility] Comment on above: Performed By: #### B DAVID, CMADM ####[facility] Jhvepgacua6541 [place] [address]Dr. Garima Pulliam Glucose [Mass/Vol] 166 mg/dL Critically high 74-106 [facility] Comment on above: Performed By: #### B DAVID, NANCY ####[facility] Zflrqircxy7316 [place] [address]Dr. Garima Pulliam Potassium [Moles/Vol] 3.5 mmol/L Normal 3.5-5.1 [facility] Comment on above: Performed By: #### B DAVID, CMADM ####[facility] Yqicsrhfqd[address] [place], [place] [address]Dr. Garima Pulliam Sodium [Moles/Vol] 139 mmol/L Normal 136-145 [facility] Comment on above: Performed By: #### B DAVID, NANCY ####[facility] Grxxsgzoom[address] [place], [place] [address]Dr. Garima Pulliam Urea nitrogen [Mass/Vol] 9.0 mg/dL Normal 7.0-18.0 [facility] Comment on above: Performed By: #### B NANCY HERNANDEZ ####[facility] Rlhslxtgdt[address] [place], [place] [address]Dr. Garima Pulliam Urea nitrogen/Creatinine [Mass ratio] 15.0 mg/mg Normal [facility] Comment on above: Performed By: #### B NANCY HERNANDEZ ####[facility] Elqyxgcpxw[address] [place], [place] [address]Dr. Chapisrenu Heraclio XR CHEST 1 Von 12-10-2022 XR CHEST 1 V Normal [facility] BNPon 11-27-2022 Natriuretic peptide B (Bld) [Mass/Vol] 95.0 pg/mL Normal <=900.0 [facility] Comment on above: Performed By: #### C MP, HSTROPN, BNP ####[facility] Ipncqhneat[address] [place], [place] [address]Dr. Garima uPlliam CBC AUTO DIFFon 11-27-2022 BASO # 0.0 103/ul Normal 0.0-0.1 [facility] Comment on above: Performed By: #### C BC ####[facility] Tjnbcvodbf[address] [place], [place] [address]Dr. Garima Pulliam Basophils/100 WBC (Bld) 0.2 % Normal 0.2-2.0 [facility] Comment on above: Performed By: #### C BC ####[facility] Iniicbzzea0595 [place] [id number]. Garima Pulliam EO # 0.2 103/ul Normal 0.0-0.7 [facility] Comment on above: Performed By: #### C BC ####[facility] Unhxawigon6651 [place] [address]Dr. Garima Pulliam Eosinophils/100 WBC (Bld) 2.0 % Normal 0.9-7.0 [facility] Comment on above: Performed By: #### C BC ####[facility] Pvvpbnqddc[address] [place], [place] [address]Dr. Garima Pulliam Erythrocyte distribution width (RBC) [Ratio] 13.2 % Normal 11.0-15.0 [facility] Comment on above: Performed By: #### C BC ####[facility] Tuzigjcioe[address] [place], [place] [address]Dr. Garima Pulliam Hematocrit (Bld) [Volume fraction] 42.4 % Normal 42.0-54.0 [facility] Comment on above: Performed By: #### C BC ####[facility] Gkmxljykkt[address] [place], [place] [address]Dr. Garima Pulliam Hemoglobin (Bld) [Mass/Vol] 14.4 g/dL Normal 14.0-18.0 [facility] Comment on above: Performed By: #### C BC ####[facility] Smbrxulofv[address] [place], [place] [address]Dr. Garima Pulliam IG # 0.04 10e3/ul Critically high 0.00-0.03 [facility] Comment on above: Performed By: #### C BC ####[facility] O[address]ro[address]osr[address] [place], [place] [address]Dr. Garima Pulliam IG % 0.4 % Normal 0.0-0.5 [facility] Comment on above: Performed By: #### C BC ####[facility] Fmqharnado[address] [place], [place] [address]Dr. Chapisrenu Pulliam LYMPH # 2.2 103/ul Normal 1.2-3.8 [facility] Comment on above: Performed By: #### C BC ####[facility] Cajixtgnpz4829 [place] [id number]. Garima Pulliam Lymphocytes/100 WBC (Bld) 21.5 % Normal 20.5-60.0 [facility] Comment on above: Performed By: #### C BC ####[facility] Ctqhitjelo4464 [place] [id number]. Garima Pulliam MANUAL DIFF REQ NO Normal [facility] Comment on above: Performed By: #### C BC ####[facility] Smaduwdmxz1240 [place] [id number]. Garima Pulliam MCH (RBC) [Entitic mass] 30.4 pg Normal 25.9-34.0 [facility] Comment on above: Performed By: #### C BC ####[facility] Pfxjtlwihe9014 [place] [id number]. Garima Pulliam MCHC (RBC) [Mass/Vol] 34.0 g/dL Normal 29.9-35.2 [facility] Comment on above: Performed By: #### C BC ####[facility] Wodxfypybe0969 [place] [id number]. Garima Pulliam MCV (RBC) [Entitic vol] 89.6 fL Normal 80.0-94.0 [facility] Comment on above: Performed By: #### C BC ####[facility] Vhloelzhwt2314 [place] [id number]. Garima Pulliam MONO # 0.8 103/ul Normal 0.3-0.8 [facility] Comment on above: Performed By: #### C BC ####[facility] Zzcxtvakkz2975 [place] [id number]. Garima Pulliam Monocytes/100 WBC (Bld) 7.7 % Normal 1.7-12.0 [facility] Comment on above: Performed By: #### C BC ####[facility] Jyxpuvkbsr2147 [place] [id number]. Garima Pulliam NEUT # 7.0 103/ul Critically high 1.4-6.5 [facility] Comment on above: Performed By: #### C BC ####[facility] Hxmccfzjrx2461 [place] [address]Dr. Garima Pulliam Neutrophils/100 WBC (Bld) 68.2 % Normal 43.0-75.0 [facility] Comment on above: Performed By: #### C BC ####[facility] Dakeaktkbn1617 [place] [address]Dr. Garima Pulliam Platelet mean volume (Bld) [Entitic vol] 8.9 fL Critically low 9.5-13.5 [facility] Comment on above: Performed By: #### C BC ####[facility] Gdmiwqoajy8377 [place] [address]Dr. Garima Pulliam PLT 222 103/ul Normal 150-450 [facility] Comment on above: Performed By: #### C BC ####[facility] Mdkadxuado5947 [place] [address]Dr. Garima Pulliam RBC 4.73 106/ul Normal 4.70-6.10 [facility] Comment on above: Performed By: #### C BC ####[facility] Eopnrrckld[address] [place], [place] [address]Dr. Garima Pulliam WBC 10.3 103/ul Normal 4.0-11.0 [facility] Comment on above: Performed By: #### C BC ####[facility] Wghrmluzyk6376 [place] [address]Dr. Garima Pulliam PROF 14(COMP METB)on 023 Albumin [Mass/Vol] 3.7 g/dL Normal 3.4-5.0 [facility] Comment on above: Performed By: #### C MP, HSTROPN, BNP ####[facility] Ksltzmafaz1168 [place] [address]Dr. Garima Pulliam Albumin/Globulin [Mass ratio] 1.5 {ratio} Normal [facility] Comment on above: Performed By: #### C MP, HSTROPN, BNP ####[facility] Zbojzdtyja9694 [place] [address]Dr. Garima Pulliam ALP [Catalytic activity/Vol] 79 U/L Normal 46-116 [facility] Comment on above: Performed By: #### C DAVID HSTROPN, BNP ####[facility] Iuayxlqvzi2822 [place] [address]Dr. Garima Pulliam ALT [Catalytic activity/Vol] 32 U/L Normal 16-63 [facility] Comment on above: Performed By: #### C DAVID HSTROPN, BNP ####[facility] Cbxzmpsmzv3944 [place] [address]Dr. Garima Pulliam Anion gap [Moles/Vol] 9.5 mmol/L Normal [facility] Comment on above: Performed By: #### C DAVID HSTROPN, BNP ####[facility] Adizjhaxui[address] [place], [place] [address]Dr. Garima Pulliam AST [Catalytic activity/Vol] 25 U/L Normal 15-37 [facility] Comment on above: Performed By: #### C DAVID HSTROPN, BNP ####[facility] Esfpfrsvbx[address] [place], [place] [address]Dr. Garima Pulliam Bilirubin [Mass/Vol] 0.4 mg/dL Normal 0.2-1.0 [facility] Comment on above: Performed By: #### C DAVID HSTROPN, BNP ####[facility] Evahtvcndu[address] [place], [place] [address]Dr. Garima Pulliam Calcium [Mass/Vol] 8.9 mg/dL Normal 8.5-10.1 [facility] Comment on above: Performed By: #### C DAVID, HSTROPN, BNP ####[facility] R[address]jaxkrbse[address] [place], [place] [address]Dr. Garima Pulliam Chloride [Moles/Vol] 103 mmol/L Normal 98-107 [facility] Comment on above: Performed By: #### C DAVID, HSTROPN, BNP ####[facility] Fblrazdcqe1171 [place] [address]Dr. Garima Pulliam CO2 [Moles/Vol] 28.6 mmol/L Normal 21.0-32.0 [facility] Comment on above: Performed By: #### C MP, HSTROPN, BNP ####[facility] Wclmkbitzk8843 [place] [address]Dr. Garima Pulliam Creatinine [Mass/Vol] 0.72 mg/dL Normal 0.70-1.30 [facility] Comment on above: Performed By: #### C MP, HSTROPN, BNP ####[facility] Fpmflfdyzz4027 [place] [address]Dr. Garima Pulliam EGFR-AF AUSTRALIAN >60 Normal >=60 [facility] Comment on above: Performed By: #### C MP, HSTROPN, BNP ####[facility] Nocvvbqwbq[address] [place], [place] [address]Dr. Garima Pulliam EGFR-NON AF AUSTRALIAN >60 Normal >=60 [facility] Comment on above: Performed By: #### C MP, HSTROPN, BNP ####[facility] Aksoeyqkim[address] [place], [place] [address]Dr. Garima Pulliam Globulin (S) [Mass/Vol] 2.5 g/dL Normal [facility] Comment on above: Performed By: #### C MP, HSTROPN, BNP ####[facility] [address]jhamcdsb[address] [place], [place] [address]Dr. Garima Pulliam Glucose [Mass/Vol] 114 mg/dL Critically high 74-106 [facility] Comment on above: Performed By: #### C MP, HSTROPN, BNP ####[facility] Udujmulqvh[address] [place], [place] [address]Dr. Garima Pulliam Potassium [Moles/Vol] 4.1 mmol/L Normal 3.5-5.1 [facility] Comment on above: Performed By: #### C MP, HSTROPN, BNP ####[facility] Kgoapfoiks[address] [place], [place] [address]Dr. Garima Pulliam Protein [Mass/Vol] 6.2 g/dL Critically low 6.4-8.2 [facility] Comment on above: Performed By: #### C MP, HSTROPN, BNP ####[facility] Bjalzfzooo1473 [place] [address]Dr. Garima Pulliam Sodium [Moles/Vol] 137 mmol/L Normal 136-145 [facility] Comment on above: Performed By: #### C MP, HSTROPN, BNP ####[facility] Ykrjccvofu4153 [place] [address]Dr. Garima Pulliam Urea nitrogen [Mass/Vol] 13.0 mg/dL Normal 7.0-18.0 [facility] Comment on above: Performed By: #### C MP, HSTROPN, BNP ####[facility] Rzcbdirvnw8336 [place] [address]Dr. Garima Pulliam Urea nitrogen/Creatinine [Mass ratio] 18.1 mg/mg Normal [facility] Comment on above: Performed By: #### C MP, HSTROPN, BNP ####[facility] Ybhjfuezqu[address] [place], [place] [address]Dr. Garima Pulliam TROPONIN, HIGH SENSITIVITYon 11-27-2022 HSTROP 11.8 pg/mL Normal 4.0-76.1 [facility] Comment on above: Result Comment: CUT- OFF POINTS HAVE BEEN ESTABLISHED BASED ON THE FOURTH UNIVERSAL DEFINITIONS OF MYOCARDIALINFARCTION. THE UPPER REFERENCE LIMIT (URL) OF TROPONIN, DEFINED THE 99TH PERCENTILE OFcTnI DISTRIBUTION IN A REFERENCE POPULATION, HAS BEEN CONFIRMED THE DECISION THRESHOLDFOR MD DIAGNOSIS. Performed By: #### C MP, HSTROPN, BNP ####[facility] Zxvdkmsoms[address] [place], [place] [address]Dr. Garima Pulliam XR CHEST 1 Von 11-27-2022 XR CHEST 1 V Normal [facility] BNPon 11-20-2022 Natriuretic peptide B (Bld) [Mass/Vol] 73.0 pg/mL Normal <=900.0 [facility] Comment on above: Performed By: #### B MP, HSTROPN, BNP ####[facility] Pqecchnbsg1177 [place] [address]Dr. Chapisrenu Pulliam CBC AUTO DIFFon 11-20-2022 BASO # 0.0 103/ul Normal 0.0-0.1 [facility] Comment on above: Performed By: #### C BC ####[facility] Xisjfwwend0091 [place] [id number]. Garima Pulliam Basophils/100 WBC (Bld) 0.3 % Normal 0.2-2.0 [facility] Comment on above: Performed By: #### C BC ####[facility] [address]xvy[address]melr[address] [place], [place] [id number]. Garima Pulliam EO # 0.2 103/ul Normal 0.0-0.7 [facility] Comment on above: Performed By: #### C BC ####[facility] Xjsimrpqhw[address] [place], [place] [address]Dr. Garima Pulliam Eosinophils/100 WBC (Bld) 2.1 % Normal 0.9-7.0 [facility] Comment on above: Performed By: #### C BC ####[facility] Uzakphqodg[address] [place], [place] [address]Dr. Garima Pulliam Erythrocyte distribution width (RBC) [Ratio] 13.2 % Normal 11.0-15.0 [facility] Comment on above: Performed By: #### C BC ####[facility] [address]prxovwcks[address] [place], [place] [address]Dr. Garima Pulliam Hematocrit (Bld) [Volume fraction] 43.4 % Normal 42.0-54.0 [facility] Comment on above: Performed By: #### C BC ####[facility] H[address]wk[address] [place], [place] [id number]. Garima Pulliam Hemoglobin (Bld) [Mass/Vol] 14.6 g/dL Normal 14.0-18.0 [facility] Comment on above: Performed By: #### C BC ####[facility] Ljjmijpdoz[address] [place], [place] [address]Dr. Garima Pulliam IG # 0.02 10e3/ul Normal 0.00-0.03 [facility] Comment on above: Performed By: #### C BC ####[facility] Ppkowdcruj[address] [place], [place] [address]Dr. Garima Pulliam IG % 0.2 % Normal 0.0-0.5 [facility] Comment on above: Performed By: #### C BC ####[facility] Etyyussdpr[address] [place] [id number]. Garima Heraclio LYMPH # 2.1 103/ul Normal 1.2-3.8 [facility] Comment on above: Performed By: #### C BC ####[facility] Mlqsertqoh2683 [place] [id number]. Garima Pulliam Lymphocytes/100 WBC (Bld) 19.2 % Critically low 20.5-60.0 [facility] Comment on above: Performed By: #### C BC ####[facility] Knoevmoiho1239 [place] [id number]. Garima Pulliam MANUAL DIFF REQ NO Normal [facility] Comment on above: Performed By: #### C BC ####[facility] Nphbrcjepp0112 [place] [id number]. Garima Pulliam MCH (RBC) [Entitic mass] 30.4 pg Normal 25.9-34.0 [facility] Comment on above: Performed By: #### C BC ####[facility] Uxwsvshxiv6649 [place] [id number]. Garima Heraclio MCHC (RBC) [Mass/Vol] 33.6 g/dL Normal 29.9-35.2 [facility] Comment on above: Performed By: #### C BC ####[facility] Vbvvobwhwf6253 [place] [id number]. Garima Pulliam MCV (RBC) [Entitic vol] 90.4 fL Normal 80.0-94.0 The [facility] Comment on above: Performed By: #### C BC ####[facility] Ouadrwoeza9010 [place] [id number]. Garima Pulliam MONO # 0.6 103/ul Normal 0.3-0.8 [facility] Comment on above: Performed By: #### C BC ####[facility] Nghwpcyvro3132 [place] [id number]. Garima Pulliam Monocytes/100 WBC (Bld) 5.8 % Normal 1.7-12.0 [facility] Comment on above: Performed By: #### C BC ####[facility] Bpreexwvay0392 [place] [id number]. Garima Pulliam NEUT # 7.8 103/ul Critically high 1.4-6.5 [facility] Comment on above: Performed By: #### C BC ####[facility] Fuujvtmjuj4747 [place] [id number]. Garima Pulliam Neutrophils/100 WBC (Bld) 72.4 % Normal 43.0-75.0 [facility] Comment on above: Performed By: #### C BC ####[facility] Gewigqbmhy7789 [place] [phone]. Garima Pulliam Platelet mean volume (Bld) [Entitic vol] 8.7 fL Critically low 9.5-13.5 [facility] Comment on above: Performed By: #### C BC ####[facility] Hzlnpclmle0419 [place] [address]Dr. Garima Pulliam PLT 184 103/ul Normal 150-450 [facility] Comment on above: Performed By: #### C BC ####[facility] Wknkktpptz7237 [place] [phone]. Garima Pulliam RBC 4.80 106/ul Normal 4.70-6.10 The [facility] Comment on above: Performed By: #### C BC ####[facility] Xqnompvtma0479 [place] [phone]. Garima Pulliam WBC 10.8 103/ul Normal 4.0-11.0 [facility] Comment on above: Performed By: #### C BC ####[facility] Qoezbeoqyk[address] [place], [place] [id number]. Garima Pulliam [facility]24 SARS-CoV-2 (COVID-19) RNA MARIE+probe Ql (Unsp spec) Not detected Normal NOT DETECTED The [facility] Comment on above: Result Comment: When diagnostic [...] for this test is supported by the [place] [place] of Health and Human Service's declaration that [...] longer be used). Performed By: #### C VDTB ####[facility] Oxnucsluws[address] [place], [place] [address]Dr. Garima Pulliam INFLUENZA A AND B AGon 11-20 [facility] SEE BELOW Normal [facility] Comment on above: Result Comment: Nega tive for Flu A protein angiten. Infection due to Flu A cannot be ruled out. Flu A angiten in the sample may be below the detection limit of the test. Performed By: #### I NFLUAB ####[facility] Kjegoaarjj[address] [place], [place] [address]Dr. Garima Pulliam INFLUBNEG SEE BELOW Normal [facility] Comment on above: Result Comment: Nega tive for Flu B protein antigen. Infection due to Flu B cannot be ruled out. Flu B antigen in the sample may be below the detection limit of the test. Performed By: #### I NFLUAB ####[facility] Evtkljhupm[address] [place], [place] [address]Dr. Garima Pulliam INFLUENZA A AG Negative Normal NEGATIVE SEE COMMENT The [facility] Comment on above: Performed By: #### I NFLUAB ####[facility] Ogczebqvnl425[address] [place], [place] [address]DrAdalberto Pulliam INFLUENZA B AG Negative Normal NEGATIVE SEE COMMENT [facility] Comment on above: Performed By: #### I NFLUAB ####[facility] Awrcjmkeuh[address] [place], [place] [address]Dr. Garima Pulliam PROF CHEM 8 (BAS METB)on Anion gap [Moles/Vol] 8.2 mmol/L Normal [facility] Comment on above: Performed By: #### B MP, HSTROPN, BNP ####[facility] Kxtxzjefyv5609 [place] [address]Dr. Garima Pulliam Calcium [Mass/Vol] 8.7 mg/dL Normal 8.5-10.1 [facility] Comment on above: Performed By: #### B MP, HSTROPN, BNP ####[facility] Sisyiggywh0632 [place] [address]Dr. Garima Pulliam Chloride [Moles/Vol] 103 mmol/L Normal 98-107 [facility] Comment on above: Performed By: #### B MP, HSTROPN, BNP ####[facility] Gulechbvtq0406 [place] [address]Dr. Garima Pulliam CO2 [Moles/Vol] 29.4 mmol/L Normal 21.0-32.0 The [facility] Comment on above: Performed By: #### B MP, HSTROPN, BNP ####[facility] Atrqiiwpml8[address] [place], [place] [address]Dr. Garima Pulliam Creatinine [Mass/Vol] 0.69 mg/dL Critically low 0.70-1.30 [facility] Comment on above: Performed By: #### B MP, HSTROPN, BNP ####[facility] Idvirsltke7[address] [place], [place] [address]Dr. Garima Pulliam EGFR-AF AUSTRALIAN >60 Normal >=60 The [facility] Comment on above: Performed By: #### B MP, HSTROPN, BNP ####[facility] Brczfuyyul[address] [place], [place] [address]Dr. Garima Pulliam EGFR-NON AF AUSTRALIAN >60 Normal >=60 [facility] Comment on above: Performed By: #### B MP, HSTROPN, BNP ####[facility] Xlyrbjzopl7069 [place] [address]Dr. Garima Pulliam Glucose [Mass/Vol] 209 mg/dL Critically high 74-106 [facility] Comment on above: Performed By: #### B MP, HSTROPN, BNP ####[facility] Iexbrdoclx5232 [place] [address]Dr. Garima Pulliam Potassium [Moles/Vol] 3.6 mmol/L Normal 3.5-5.1 [facility] Comment on above: Performed By: #### B MP, HSTROPN, BNP ####[facility] Dfgodqwvpc0464 [place] [address]Dr. Garima Pulliam Sodium [Moles/Vol] 137 mmol/L Normal 136-145 [facility] Comment on above: Performed By: #### B MP, HSTROPN, BNP ####[facility] Jskyhconat0441 [place] [address]Dr. Garima Pulliam Urea nitrogen [Mass/Vol] 11.0 mg/dL Normal 7.0-18.0 [facility] Comment on above: Performed By: #### B MP, HSTROPN, BNP ####[facility] Txrwtdontb7176 [place] [address]Dr. Garima Pulliam Urea nitrogen/Creatinine [Mass ratio] 15.9 mg/mg Normal [facility] Comment on above: Performed By: #### B MP, HSTROPN, BNP ####[facility] Uhauwhsigf7644 [place] [address]Dr. Garima Pulliam TROPONIN, HIGH SENSITIVITYon 11-20-2022 HSTROP 8.7 pg/mL Normal 4.0-76.1 [facility] Comment on above: Result Comment: CUT- OFF POINTS HAVE BEEN ESTABLISHED BASED ON THE FOURTH UNIVERSAL DEFINITIONS OF MYOCARDIALINFARCTION. THE UPPER REFERENCE LIMIT (URL) OF TROPONIN, DEFINED THE 99TH PERCENTILE OFcTnI DISTRIBUTION IN A REFERENCE POPULATION, HAS BEEN CONFIRMED THE DECISION THRESHOLDFOR MD DIAGNOSIS. Performed By: #### B MP, HSTROPN, BNP ####[facility] Hnducwxnnx7646 [place] [address]Dr. Garima Pulliam XR CHEST 1 Von 11-20-2022 XR CHEST 1 V Normal [facility] XR CHEST 1 Von 10-02-2022 XR CHEST 1 V Normal [facility] BNPon 09-29-2022 Natriuretic peptide B (Bld) [Mass/Vol] 107.0 pg/mL Normal <=900.0 The [facility] Comment on above: Performed By: #### C MP, BNP, CMADM ####[facility] Jxsbgrweiz3752 [place] [address]Dr. Garima Pulliam CARDIAC NASH ADMITon 022 CK [Catalytic activity/Vol] 190 U/L Normal 39-308 The [facility] Comment on above: Performed By: #### C MP, BNP, CMADM ####[facility] Jxcrsaxijx6366 [place] [address]Dr. Garima Pulliam CK.MB [Mass/Vol] 11.11 ng/mL Critically high <=3.60 Th e [facility] Comment on above: Performed By: #### C MP, BNP, CMADM ####[facility] Olqyjbxjxn[address] [place], [place] [address]Dr. Garima Pulliam HSTROP 11.8 pg/mL Normal 4.0-76.1 The [facility] Comment on above: Result Comment: CUT- OFF POINTS HAVE BEEN ESTABLISHED BASED ON THE FOURTH UNIVERSAL DEFINITIONS OF MYOCARDIALINFARCTION. THE UPPER REFERENCE LIMIT (URL) OF TROPONIN, DEFINED THE 99TH PERCENTILE OFcTnI DISTRIBUTION IN A REFERENCE POPULATION, HAS BEEN CONFIRMED THE DECISION THRESHOLDFOR MD DIAGNOSIS. Performed By: #### C MP, BNP, CMADM ####[facility] Qzfeltqqir6140 [place] [address]Dr. Garima Pulliam DORIS 133 ng/mL Critically high 16-96 [facility] Comment on above: Performed By: #### C MP, BNP, CMADM ####[facility] Deicycojss4103 [place] [address]Dr. Garima Pulliam CBC AUTO DIFFon 09-29-2022 BASO # 0.0 103/ul Normal 0.0-0.1 [facility] Comment on above: Performed By: #### C BC ####[facility] Swlbqktlbq6641 [place] [address]Dr. Garima Pulliam Basophils/100 WBC (Bld) 0.2 % Normal 0.2-2.0 The [facility] Comment on above: Performed By: #### C BC ####[facility] Abowwizehn6941 [place] [address]Dr. Garima Pulliam EO # 0.1 103/ul Normal 0.0-0.7 [facility] Comment on above: Performed By: #### C BC ####[facility] Iyjwjkryxz2458 [place] [address]Dr. Garima Pulliam Eosinophils/100 WBC (Bld) 1.4 % Normal 0.9-7.0 [facility] Comment on above: Performed By: #### C BC ####[facility] Rehhlhwsjs[address] [place], [place] [address]Dr. Garima Pulliam Erythrocyte distribution width (RBC) [Ratio] 13.7 % Normal 11.0-15.0 [facility] Comment on above: Performed By: #### C BC ####[facility] Mbjrdwiatp[address] [place], [place] [address]Dr. Gariam Pulliam Hematocrit (Bld) [Volume fraction] 45.4 % Normal 42.0-54.0 [facility] Comment on above: Performed By: #### C BC ####[facility] Tzsngfkfnx[address] [place], [place] [address]Dr. Garima Pulliam Hemoglobin (Bld) [Mass/Vol] 14.8 g/dL Normal 14.0-18.0 The [facility] Comment on above: Performed By: #### C BC ####[facility] Mesmgbalpk[address] [place], [place] [address]Dr. Garima Heraclio IG # 0.04 10e3/ul Critically high 0.00-0.03 [facility] Comment on above: Performed By: #### C BC ####[facility] Hqkjmhhzqt[address] [place], [place] [address]Dr. Chapisrenu Pulliam IG % 0.5 % Normal 0.0-0.5 The [facility] Comment on above: Performed By: #### C BC ####[facility] Kktmphdsht[address] [place], [place] [address]DrAdalberto Pulliam LYMPH # 1.1 103/ul Critically low 1.2-3.8 [facility] Comment on above: Performed By: #### C BC ####[facility] Lqpajzcpcb9547 [place] [address]DrAdalberto Pulliam Lymphocytes/100 WBC (Bld) 12.7 % Critically low 20.5-60.0 [facility] Comment on above: Performed By: #### C BC ####[facility] Fwhecpojyk6989 [place] [id number] Pulliam MANUAL DIFF REQ NO Normal [facility] Comment on above: Performed By: #### C BC ####[facility] Ifseywkuxi4824 [place] [id number] Pulliam MCH (RBC) [Entitic mass] 30.0 pg Normal 25.9-34.0 [facility] Comment on above: Performed By: #### C BC ####[facility] [address]vtsyohw[address] [place], [place] [address]Dr. Garima Pulliam MCHC (RBC) [Mass/Vol] 32.6 g/dL Normal 29.9-35.2 [facility] Comment on above: Performed By: #### C BC ####[facility] Fnxuxkjxuo[address] [place], [place] [id number] Pulliam MCV (RBC) [Entitic vol] 91.9 fL Normal 80.0-94.0 The [facility] Comment on above: Performed By: #### C BC ####[facility] Jisiekpjjv1368 [place] [address]DrAdalberto Pulliam MONO # 0.4 103/ul Normal 0.3-0.8 The [facility] Comment on above: Performed By: #### C BC ####[facility] Olssfmhxvw[address] [place], [place] [id number] Pulliam Monocytes/100 WBC (Bld) 4.8 % Normal 1.7-12.0 The [facility] Comment on above: Performed By: #### C BC ####[facility] Pnqbfrdkqr[address] [place], [place] [id number] Pulliam NEUT # 7.1 103/ul Critically high 1.4-6.5 [facility] Comment on above: Performed By: #### C BC ####[facility] Omdqdkdrun1913 [place] [id number]. Garima Pulliam Neutrophils/100 WBC (Bld) 80.4 % Critically high 43.0-75.0 [facility] Comment on above: Performed By: #### C BC ####[facility] Ekmalotigd8815 [place] [phone]. Garima Pulliam Platelet mean volume (Bld) [Entitic vol] 9.1 fL Critically low 9.5-13.5 [facility] Comment on above: Performed By: #### C BC ####[facility] Bbcpnkybef1600 [place] [phone]. Garima Pulliam PLT 200 103/ul Normal 150-450 [facility] Comment on above: Performed By: #### C BC ####[facility] Jieigwohrc2492 [place] [id number]. Garima Pulliam RBC 4.94 106/ul Normal 4.70-6.10 The [facility] Comment on above: Performed By: #### C BC ####[facility] Wysjkknurr9899 [place] [id number]. Garima Pulliam WBC 8.9 103/ul Normal 4.0-11.0 The [facility] Comment on above: Performed By: #### C BC ####[facility] Hmtkhrgefc9448 [place] [phone]. Garima Pulliam [facility]id-19 [facility] ([facility]on SARS-CoV-2 (COVID-19) RNA MARIE+probe Ql (Unsp spec) Not detected Normal NOT DETECTED [facility] Comment on above: Result Comment: When diagnostic [...] for this test is supported by the [place] of Health and Human Service's declaration that [...] be used). Performed By: #### C VDTBH ####[facility] Pphxsdzlzs9029 [place] [address]Dr. Garima Pulliam LACTATE/LACTIC ACIDon 2021 Lactate [Moles/Vol] 1.7 mmol/L Normal 0.4-1.9 [facility] Comment on above: Performed By: #### L ACT ####[facility] Kkvtmzgrtg[address] [place], [place] [address]Dr. Garima Pulliam PROF 14(COMP METB)on 022 Albumin [Mass/Vol] 3.8 g/dL Normal 3.4-5.0 [facility] Comment on above: Performed By: #### C MP, BNP, CMADM ####[facility] Kcdvslgfre0792 [place] [address]Dr. Garima Pulliam Albumin/Globulin [Mass ratio] 1.5 {ratio} Normal [facility] Comment on above: Performed By: #### C MP, BNP, CMADM ####[facility] Swubjufyqi0438 [place] [address]Dr. Garima Pulliam ALP [Catalytic activity/Vol] 62 U/L Normal 46-116 The [facility] Comment on above: Performed By: #### C MP, BNP, CMADM ####[facility] Sqwqbvnmno9106 [place] [address]Dr. Garima Pulliam ALT [Catalytic activity/Vol] 37 U/L Normal 16-63 [facility] Comment on above: Performed By: #### C MP, BNP, CMADM ####[facility] Frtpjlmrlk1082 [place] [address]Dr. Garima Pulliam Anion gap [Moles/Vol] 8.0 mmol/L Normal [facility] Comment on above: Performed By: #### C MP, BNP, CMADM ####[facility] Tisajmftif9218 [place] [address]Dr. Garima Pulliam AST [Catalytic activity/Vol] 20 U/L Normal 15-37 The [facility] Comment on above: Performed By: #### C MP, BNP, CMADM ####[facility] Zozmthtvsy5537 [place] [address]Dr. Garima Pulliam Bilirubin [Mass/Vol] 0.6 mg/dL Normal 0.2-1.0 The [facility] Comment on above: Performed By: #### C MP, BNP, CMADM ####[facility] Wqsklinbnb[address] [place], [place] [address]Dr. Garima Pulliam Calcium [Mass/Vol] 9.1 mg/dL Normal 8.5-10.1 [facility] Comment on above: Performed By: #### C MP, BNP, CMADM ####[facility] [address]uachnvci[address] [place], [place] [address]Dr. Garima Pulliam Chloride [Moles/Vol] 103 mmol/L Normal 98-107 The [facility] Comment on above: Performed By: #### C MP, BNP, CMADM ####[facility] Unyyonrqef4536 [place] [address]Dr. Garima Pulliam CO2 [Moles/Vol] 31.8 mmol/L Normal 21.0-32.0 [facility] Comment on above: Performed By: #### C MP, BNP, CMADM ####[facility] Iljehpztxh[address] [place], [place] [address]Dr. Garima Pulliam Creatinine [Mass/Vol] 0.63 mg/dL Critically low 0.70-1.30 [facility] Comment on above: Performed By: #### C MP, BNP, CMADM ####[facility] Jvgvefohhh9559 [place] [address]Dr. Garima Pulliam EGFR-AF AUSTRALIAN >60 Normal >=60 [facility] Comment on above: Performed By: #### C MP, BNP, CMADM ####[facility] Jiwvjmqqxn2883 [place] [id number]. Garima Pulliam EGFR-NON AF AUSTRALIAN >60 Normal >=60 [facility] Comment on above: Performed By: #### C MP, BNP, CMADM ####[facility] Fajpwpnunc2874 [place] [address]Dr. Garima Pulliam Globulin (S) [Mass/Vol] 2.6 g/dL Normal [facility] Comment on above: Performed By: #### C MP, BNP, CMADM ####[facility] Yjrhfztoiw2278 [place] [address]Dr. Garima Pulliam Glucose [Mass/Vol] 103 mg/dL Normal 74-106 The [facility] Comment on above: Performed By: #### C MP, BNP, CMADM ####[facility] Jdcprkmbes1671 [place] [address]Dr. Garima Pulliam Potassium [Moles/Vol] 3.8 mmol/L Normal 3.5-5.1 The [facility] Comment on above: Performed By: #### C MP, BNP, CMADM ####[facility] Yejrjbnxoa5103 [place] [address]Dr. Garima Pulliam Protein [Mass/Vol] 6.4 g/dL Normal 6.4-8.2 [facility] Comment on above: Performed By: #### C MP, BNP, CMADM ####[facility] Uboiebvpzf1960 [place] [address]Dr. Garima Pulliam Sodium [Moles/Vol] 139 mmol/L Normal 136-145 The [facility] Comment on above: Performed By: #### C MP, BNP, CMADM ####[facility] Gojucnscoi1063 [place] [address]Dr. Garima Pulliam Urea nitrogen [Mass/Vol] 7.0 mg/dL Normal 7.0-18.0 The [facility] Comment on above: Performed By: #### C MP, BNP, CMADM ####[facility] Hllmgyghtv3499 [place] [address]Dr. Garima Pulliam Urea nitrogen/Creatinine [Mass ratio] 11.1 mg/mg Normal [facility] Comment on above: Performed By: #### C MP, BNP, CMADM ####[facility] [address]vqffpd[address] [place] [address]Dr. Garima Heraclio PROTIMEon 09-29-2022 INR Coag (PPP) [Relative time] 1.14 {INR} Normal [facility] Comment on above: Performed By: #### P T, PTT ####[facility] Wtoqdqadxp[address] [place], [place] [address]Dr. Garima Pulliam INR GUIDELINES SEE BELOW Normal [facility] Comment on above: Result Comment: WESLEY RED INR: 2.0 - 3.0 CONDITIONS NOT LISTED BELOW 2.5 - 3.5 FOR PROSTHETIC HEART VALVE REPLACEMENT 2.5 - 3.5 RECURRENT THROMBOSIS Performed By: #### P T, PTT ####[facility] Zsoxgrsptp711[address] [place], [place] [address]Dr. Garima Pulliam PT Coag (PPP) [Time] 12.2 s Critically high 9.0-11.6 [facility] Comment on above: Performed By: #### P T, PTT ####[facility] Kdfdkqaowo820[address] [place], [place] [address]Dr. Garima Pulliam PTTon 09-29-2022 aPTT Coag (Bld) [Time] 29.3 s Normal 22.3-36.2 [facility] Comment on above: Performed By: #### P T, PTT ####[facility] Oxzyprfhqw947[address] [place], [place] [address]Dr. Garima Pulliam XR CHEST 1 Von 09-29-2022 XR CHEST 1 V Normal [facility] CBC AUTO DIFFon 09-26-2022 BASO # 0.0 103/ul Normal 0.0-0.1 [facility] Comment on above: Performed By: #### C BC ####[facility] Hnztyjafyf[address] [place], [place] [address]Dr. Garima Pulliam Basophils/100 WBC (Bld) 0.2 % Normal 0.2-2.0 [facility] Comment on above: Performed By: #### C BC ####[facility] Rircafrbsk[address] [place] [address]Dr. Garima Pulliam EO # 0.1 103/ul Normal 0.0-0.7 [facility] Comment on above: Performed By: #### C BC ####[facility] Wpedzuhwuu5[address] [place] [address]Dr. Garima Pulliam Eosinophils/100 WBC (Bld) 1.0 % Normal 0.9-7.0 [facility] Comment on above: Performed By: #### C BC ####[facility] Sldugdfeib814[address] [place], [place] [address]Dr. Garima Pulliam Erythrocyte distribution width (RBC) [Ratio] 13.4 % Normal 11.0-15.0 [facility] Comment on above: Performed By: #### C BC ####[facility] Rxlwceygsd19[address] [place], [place] [address]Dr. Garima Pulliam Hematocrit (Bld) [Volume fraction] 46.3 % Normal 42.0-54.0 [facility] Comment on above: Performed By: #### C BC ####[facility] Ajokzgafdu9625[address] [place], [place] [address]Dr. Garima Pulliam Hemoglobin (Bld) [Mass/Vol] 15.3 g/dL Normal 14.0-18.0 [facility] Comment on above: Performed By: #### C BC ####[facility] Lpndpwbnkb946[address] [place], [place] [address]Dr. Garima Pulliam IG # 0.05 10e3/ul Critically high 0.00-0.[address] [facility] Comment on above: Performed By: #### C BC ####[facility] Idstujeqmm211[address] [place], [place] [address]Dr. Garima Pulliam IG % 0.4 % Normal 0.0-0.5 [facility] Comment on above: Performed By: #### C BC ####[facility] Vjfneysqgt566[address] [place], [place] [address]Dr. Garima Pulliam LYMPH # 1.7 103/ul Normal 1.2-3.8 [facility] Comment on above: Performed By: #### C BC ####[facility] Qzdaaijeah[address] [place] [address]Dr. Chapisrenu Pulliam Lymphocytes/100 WBC (Bld) 12.7 % Critically low 20.5-60.0 [facility] Comment on above: Performed By: #### C BC ####[facility] Gitftjsptl40[address] [place] [address]Dr. Garima Pulliam MANUAL DIFF REQ NO Normal [facility] Comment on above: Performed By: #### C BC ####[facility] Jurhslsteg[address] [place] [address]Dr. Chapisrenu Pulliam MCH (RBC) [Entitic mass] 30.1 pg Normal 25.9-34.0 [facility] Comment on above: Performed By: #### C BC ####[facility] Nfdxvumtzk[address] [place], [place] [address]Dr. Garima Pulliam MCHC (RBC) [Mass/Vol] 33.0 g/dL Normal 29.9-35.2 [facility] Comment on above: Performed By: #### C BC ####[facility] Wkcfphegck394[address] [place], [place] [address]Dr. Garima Pulliam MCV (RBC) [Entitic vol] 91.1 fL Normal 80.0-94.0 [facility] Comment on above: Performed By: #### C BC ####[facility] Exfddfzbmu855[address] [place], [place] [address]Dr. Garima Pulliam MONO # 0.9 103/ul Critically high 0.3-0.8 [facility] Comment on above: Performed By: #### C BC ####[facility] Aogrsogabr79[address] [place], [place] [address]Dr. Garima Pulliam Monocytes/100 WBC (Bld) 7.0 % Normal 1.7-12.0 [facility] Comment on above: Performed By: #### C BC ####[facility] Zwvnotmxnh211[address] [place], [place] [address]Dr. Garima Pulliam NEUT # 10.4 103/ul Critically high 1.4-6.5 The [facility] Comment on above: Performed By: #### C BC ####[facility] Ejxwbtkrvo73[address] [place] [address]Dr. Garima Pulliam Neutrophils/100 WBC (Bld) 78.7 % Critically high 43.0-75.0 [facility] Comment on above: Performed By: #### C BC ####[facility] Cyatucixww036[address] [place] [address]Dr. Garima Pulliam Platelet mean volume (Bld) [Entitic vol] 8.9 fL Critically low 9.5-13.5 [facility] Comment on above: Performed By: #### C BC ####[facility] Zyuvqlqqjw26[address] [place] [address]Dr. Garima Pulliam PLT 195 103/ul Normal 150-450 [facility] Comment on above: Performed By: #### C BC ####[facility] Geqpxstqey1496 [place] [address]Dr. Garima Pulliam RBC 5.08 106/ul Normal 4.70-6.10 [facility] Comment on above: Performed By: #### C BC ####[facility] Bgjkqrndjd3240 [place] [address]Dr. Garima Pulliam WBC 13.2 103/ul Critically high 4.0-11.0 The [facility] Comment on above: Performed By: #### C BC ####[facility] Llsegewfqo23[address] [place] [address]Dr. Garima Pulliam PROF 14(COMP METB)on 022 Albumin [Mass/Vol] 3.5 g/dL Normal 3.4-5.0 [facility] Comment on above: Performed By: #### C DAVID HSTROPN ####[facility] Uymvbravhd4[address] [place] [id number]. Garima Pulliam Albumin/Globulin [Mass ratio] 1.2 {ratio} Normal [facility] Comment on above: Performed By: #### C DAVID HSTROPN ####[facility] Jwughkhjpz5[address] [place] [id number]. Garima Pulliam ALP [Catalytic activity/Vol] 71 U/L Normal 46-116 [facility] Comment on above: Performed By: #### C MP, HSTROPN ####[facility] Ybltojqufg5456 [place] [address]Dr. Garima Pulliam ALT [Catalytic activity/Vol] 37 U/L Normal 16-63 [facility] Comment on above: Performed By: #### C MP, HSTROPN ####[facility] Qnebngzppr3329 [place] [address]Dr. Garima Pulliam Anion gap [Moles/Vol] 4.8 mmol/L Normal [facility] Comment on above: Performed By: #### C MP, HSTROPN ####[facility] Bbiutbnxou44[address] [place] [address]Dr. Garima Pulliam AST [Catalytic activity/Vol] 21 U/L Normal 15-37 [facility] Comment on above: Performed By: #### C DAVID, HSTROPN ####[facility] Gfrypsrhrk[address] [place], [place] [address]Dr. Garima Pulliam Bilirubin [Mass/Vol] 0.3 mg/dL Normal 0.2-1.0 [facility] Comment on above: Performed By: #### C DAVID, HSTROPN ####[facility] Mpulwvcxnz[address] [place], [place] [address]Dr. Garima Pulliam Calcium [Mass/Vol] 8.9 mg/dL Normal 8.5-10.1 [facility] Comment on above: Performed By: #### C DAVID, HSTROPN ####[facility] Wuvdkixmxc08[address] [place] [address]Dr. Garima Pulliam Chloride [Moles/Vol] 106 mmol/L Normal 98-107 [facility] Comment on above: Performed By: #### C DAVID, HSTROPN ####[facility] Oepvmxnycj[address] [place], [place] [address]Dr. Garima Pulliam CO2 [Moles/Vol] 29.8 mmol/L Normal 21.0-32.0 [facility] Comment on above: Performed By: #### C MP, HSTROPN ####[facility] Dljmkvhxne[address] [place], [place] [address]Dr. Garima Pulliam Creatinine [Mass/Vol] 0.68 mg/dL Critically low 0.70-1.30 [facility] Comment on above: Performed By: #### C DAVID, HSTROPN ####[facility] Cqpazszjaq[address] [place] [address]Dr. Garima Pulliam EGFR-AF AUSTRALIAN >60 Normal >=60 [facility] Comment on above: Performed By: #### C DAVID, HSTROPN ####[facility] Npzppttiis225[address] [place] [address]Dr. Garima Pulliam EGFR-NON AF AUSTRALIAN >60 Normal >=60 [facility] Comment on above: Performed By: #### C DAVID, HSTROPN ####[facility] Euzpernesv7161 [place] [address]Dr. Garima Pulliam Globulin (S) [Mass/Vol] 2.8 g/dL Normal [facility] Comment on above: Performed By: #### C DAVID, HSTROPN ####[facility] Yermpyximm5990 [place] [address]Dr. Garima Pulliam Glucose [Mass/Vol] 133 mg/dL Critically high 74-106 [facility] Comment on above: Performed By: #### C DAVID, HSTROPN ####[facility] Qscaulxwhy6371 [place] [address]Dr. Garima Pulliam Potassium [Moles/Vol] 3.6 mmol/L Normal 3.5-5.1 [facility] Comment on above: Performed By: #### C DAVID, HSTROPN ####[facility] Xxubkrstsm8035 [place] [address]Dr. Garima Pulliam Protein [Mass/Vol] 6.3 g/dL Critically low 6.4-8.2 Th [facility] Comment on above: Performed By: #### C DAVID, HSTROPN ####[facility] Muchxawuen8866 [place] [address]Dr. Garima Pulliam Sodium [Moles/Vol] 137 mmol/L Normal 136-145 [facility] Comment on above: Performed By: #### C DAVID, HSTROPN ####[facility] Tmujavjkty0984 [place] [id number]. Garima Pulliam Urea nitrogen [Mass/Vol] 15.0 mg/dL Normal 7.0-18.0 [facility] Comment on above: Performed By: #### C MP, HSTROPN ####[facility] Xxwzwhvmpp2194 [place] [id number]. Chapisrenu Pulliam Urea nitrogen/Creatinine [Mass ratio] 22.1 mg/mg Normal [facility] Comment on above: Performed By: #### C MP, HSTROPN ####[facility] Vpxunjqoqm0993 [place] [id number]. Garima Heraclio TROPONIN, HIGH SENSITIVITYon 09-26-2022 HSTROP 12.8 pg/mL Normal 4.0-76.1 [facility] Comment on above: Result Comment: CUT- OFF POINTS HAVE BEEN ESTABLISHED BASED ON THE FOURTH UNIVERSAL DEFINITIONS OF MYOCARDIALINFARCTION. THE UPPER REFERENCE LIMIT (URL) OF TROPONIN, DEFINED THE 99TH PERCENTILE OFcTnI DISTRIBUTION IN A REFERENCE POPULATION, HAS BEEN CONFIRMED THE DECISION THRESHOLDFOR MD DIAGNOSIS. Performed By: #### C MP, HSTROPN ####[facility] Fjotbmwnnc2654 [place] [address]Dr. Garima Heraclio XR CHEST 1 Von 09-26-2022 XR CHEST 1 V Normal [facility] XR CHEST 1 Von 09-16-2022 XR CHEST 1 V Normal [facility] CBC AUTO DIFFon 09-15-2022 BASO # 0.0 103/ul Normal 0.0-0.1 [facility] Comment on above: Performed By: #### C BC ####[facility] Twyihtmxft3428 [place] [id number]. Garima Heraclio Basophils/100 WBC (Bld) 0.1 % Critically low 0.2-2.0 [facility] Comment on above: Performed By: #### C BC ####[facility] Wwdkfotyhi5782 [place] [id number]. Chapisrenu Pulliam EO # 0.0 103/ul Normal 0.0-0.7 [facility] Comment on above: Performed By: #### C BC ####[facility] Vvmbisiwft3462 [place] [id number]. Garima Pulliam Eosinophils/100 WBC (Bld) 0.1 % Critically low 0.9-7.0 [facility] Comment on above: Performed By: #### C BC ####[facility] Ycmzrbkdkb5961 [place] [address]Dr. Garima Pulliam Erythrocyte distribution width (RBC) [Ratio] 14.1 % Normal 11.0-15.0 [facility] Comment on above: Performed By: #### C BC ####[facility] Ytzgevhryn75[address] [place], [place] [address]Dr. Garima Pulliam Hematocrit (Bld) [Volume fraction] 46.1 % Normal 42.0-54.0 [facility] Comment on above: Performed By: #### C BC ####[facility] Qxhoqtwqnx66[address] [place], [place] [address]Dr. Garima Pulliam Hemoglobin (Bld) [Mass/Vol] 15.0 g/dL Normal 14.0-18.0 [facility] Comment on above: Performed By: #### C BC ####[facility] Zucaydqanp119[address] [place], [place] [address]Dr. Garima Pulliam IG # 0.03 10e3/ul Normal 0.00-0.03 [facility] Comment on above: Performed By: #### C BC ####[facility] Ugmwoevnnj130[address] [place], [place] [address]Dr. Garima Pulliam IG % 0.3 % Normal 0.0-0.5 [facility] Comment on above: Performed By: #### C BC ####[facility] Cxofsqbcac247[address] [place], [place] [address]Dr. Garima Pulliam LYMPH # 0.6 103/ul Critically low 1.2-3.8 [facility] Comment on above: Performed By: #### C BC ####[facility] Fxzxmztzpr169[address] [place], [place] [address]Dr. Garima Pulliam Lymphocytes/100 WBC (Bld) 5.8 % Critically low 20.5-60.0 [facility] Comment on above: Performed By: #### C BC ####[facility] Xdqvdlnbro1400 [place] [phone]. Garima Pulliam MANUAL DIFF REQ NO Normal [facility] Comment on above: Performed By: #### C BC ####[facility] Odwtsrvzxq7320 [place] [phone]. Garima Pulliam MCH (RBC) [Entitic mass] 30.2 pg Normal 25.9-34.0 [facility] Comment on above: Performed By: #### C BC ####[facility] Uhkaivhirf5054 [place] [phone]. Garima Pulliam MCHC (RBC) [Mass/Vol] 32.5 g/dL Normal 29.9-35.2 [facility] Comment on above: Performed By: #### C BC ####[facility] Rjlpqiuuhg[address] [place], [place] [address]Dr. Garima Pulliam MCV (RBC) [Entitic vol] 92.8 fL Normal 80.0-94.0 [facility] Comment on above: Performed By: #### C BC ####[facility] Wvxraxnhbl[address] [place], [place] [id number]. Garima Pulliam MONO # 0.3 103/ul Normal 0.3-0.8 [facility] Comment on above: Performed By: #### C BC ####[facility] Qxrqbuyppb2202 [place] [address]Dr. Garima Pulliam Monocytes/100 WBC (Bld) 3.2 % Normal 1.7-12.0 [facility] Comment on above: Performed By: #### C BC ####[facility] Yjyrpksnbk[address] [place], [place] [address]Dr. Garima Pulliam NEUT # 9.8 103/ul Critically high 1.4-6.5 [facility] Comment on above: Performed By: #### C BC ####[facility] Abndurdawe[address] [place], [place] [id number]. Garima Pulliam Neutrophils/100 WBC (Bld) 90.5 % Critically high 43.0-75.0 [facility] Comment on above: Performed By: #### C BC ####[facility] Bvmmnpwxoi9975 [place] [address]Dr. Garima Pulliam Platelet mean volume (Bld) [Entitic vol] 9.4 fL Critically low 9.5-13.5 [facility] Comment on above: Performed By: #### C BC ####[facility] Gmufpcthxs4463 [place] [address]Dr. Garima Pulliam PLT 208 103/ul Normal 150-450 [facility] Comment on above: Performed By: #### C BC ####[facility] Ifoxejozge[address] [place], [place] [address]Dr. Garima Pulliam RBC 4.97 106/ul Normal 4.70-6.10 [facility] Comment on above: Performed By: #### C BC ####[facility] Mghyjzbaue9[address] [place], [place] [address]Dr. Garima Pulliam WBC 10.8 103/ul Normal 4.0-11.0 [facility] Comment on above: Performed By: #### C BC ####[facility] Ukupgncbik[address] [place], [place] [address]Dr. Garima Pulliam PROF 14(COMP METB)on 022 Albumin [Mass/Vol] 4.0 g/dL Normal 3.4-5.0 [facility] Comment on above: Performed By: #### C MP ####[facility] Acengjdsvw[address] [place], [place] [address]Dr. Garima Pulliam Albumin/Globulin [Mass ratio] 1.5 {ratio} Normal [facility] Comment on above: Performed By: #### C MP ####[facility] Klwwxjrqsn1939[address] [place], [place] [address]Dr. Garima Pulliam ALP [Catalytic activity/Vol] 73 U/L Normal 46-116 [facility] Comment on above: Performed By: #### C MP ####[facility] [address]afflyfjg[address] [place], [place] [address]Dr. Garima Pulliam ALT [Catalytic activity/Vol] 42 U/L Normal 16-63 [facility] Comment on above: Performed By: #### C MP ####[facility] Tzddxhqznn9048 [place] [id number]. Garima Pulliam Anion gap [Moles/Vol] 9.1 mmol/L Normal [facility] Comment on above: Performed By: #### C MP ####[facility] Fudfcoygje3830 [place] [phone]. Garima Pulliam AST [Catalytic activity/Vol] 28 U/L Normal 15-37 [facility] Comment on above: Performed By: #### C MP ####[facility] Gxpwtidhwn8310 [place] [phone]. Garima Pulliam Bilirubin [Mass/Vol] 0.6 mg/dL Normal 0.2-1.0 [facility] Comment on above: Performed By: #### C MP ####[facility] Edgakocmrj8983 [place] [address]Dr. Garima Pulliam Calcium [Mass/Vol] 8.6 mg/dL Normal 8.5-10.1 [facility] Comment on above: Performed By: #### C MP ####[facility] Dqhutbumge7143 [place] [address]Dr. Garima Pulliam Chloride [Moles/Vol] 105 mmol/L Normal 98-107 [facility] Comment on above: Performed By: #### C MP ####[facility] Nxingtlnsc6129 [place] [phone]. Garima Pulliam CO2 [Moles/Vol] 28.5 mmol/L Normal 21.0-32.0 The [facility] Comment on above: Performed By: #### C MP ####[facility] Uigaxxqxkf9390 [place] [id number]. Garima Pulliam Creatinine [Mass/Vol] 0.78 mg/dL Normal 0.70-1.30 [facility] Comment on above: Performed By: #### C MP ####[facility] Soeewhhjqp9085 [place] [id number]. Garima Heraclio EGFR-AF AUSTRALIAN >60 Normal >=60 [facility] Comment on above: Performed By: #### C MP ####[facility] Jcnlhzpyas0131 [place] [id number]. Garima Pulliam EGFR-NON AF AUSTRALIAN >60 Normal >=60 [facility] Comment on above: Performed By: #### C MP ####[facility] Lvgnyuozcf7270 [place] [address]Dr. Garima Pulliam Globulin (S) [Mass/Vol] 2.7 g/dL Normal [facility] Comment on above: Performed By: #### C MP ####[facility] Yeskbsybiw3467 [place] [address]Dr. Garima Pulliam Glucose [Mass/Vol] 220 mg/dL Critically high 74-106 [facility] Comment on above: Performed By: #### C MP ####[facility] Hjbbnltqkv013[address] [place], [place] [address]Dr. Garima Pulliam Potassium [Moles/Vol] 3.6 mmol/L Normal 3.5-5.1 [facility] Comment on above: Performed By: #### C MP ####[facility] Ivwhkpglkc[address] [place], [place] [address]Dr. Garima Pulliam Protein [Mass/Vol] 6.7 g/dL Normal 6.4-8.2 The [facility] Comment on above: Performed By: #### C MP ####[facility] Qlmdjhdcob[address] [place], [place] [address]Dr. Garima Pulliam Sodium [Moles/Vol] 139 mmol/L Normal 136-145 The [facility] Comment on above: Performed By: #### C MP ####[facility] Asfrfuboyp229[address] [place], [place] [address]Dr. Garima Pulliam Urea nitrogen [Mass/Vol] 11.0 mg/dL Normal 7.0-18.0 [facility] Comment on above: Performed By: #### C MP ####[facility] Pwvqxldxun[address] [place], [place] [address]Dr. Garima Pulliam Urea nitrogen/Creatinine [Mass ratio] 14.1 mg/mg Normal [facility] Comment on above: Performed By: #### C MP ####[facility] Lfgnhsq[address] [place], [place] [address]Dr. Garima Pulliam CARDIAC NASH 3-6on 2 CK [Catalytic activity/Vol] 240 U/L Normal 39-308 [facility] Comment on above: Performed By: #### C MREP ####[facility] Gmlwcgatxu6065 [place], [place] [address]Pa. Garima Pulliam CK.MB [Mass/Vol] 10.38 ng/mL Critically high <=3.60 [facility] Comment on above: Performed By: #### C MREP ####[facility] Rsbpvgkwje1474 [place] [id number]. Garima Pulliam HSTROP 18.5 pg/mL Normal 4.0-76.1 [facility] Comment on above: Result Comment: CUT- OFF POINTS HAVE BEEN ESTABLISHED BASED ON THE FOURTH UNIVERSAL DEFINITIONS OF MYOCARDIALINFARCTION. THE UPPER REFERENCE LIMIT (URL) OF TROPONIN, DEFINED THE 99TH PERCENTILE OFcTnI DISTRIBUTION IN A REFERENCE POPULATION, HAS BEEN CONFIRMED THE DECISION THRESHOLDFOR MD DIAGNOSIS. Performed By: #### C MREP ####[facility] Lezodocgwx3770 [place] [id number]. Garima Pulliam CK [Catalytic activity/Vol] 257 U/L Normal 39-308 [facility] Comment on above: Performed By: #### C MREP ####[facility] Zapokjglpd3796 [place] [id number]. Garima Pulliam CK.MB [Mass/Vol] 9.89 ng/mL Critically high <=3.60 [facility] Comment on above: Performed By: #### C MREP ####[facility] Kurgisppgo3850 [place] [id number]. Garima Pulliam HSTROP 16.9 pg/mL Normal 4.0-76.1 [facility] Comment on above: Result Comment: CUT- OFF POINTS HAVE BEEN ESTABLISHED BASED ON THE FOURTH UNIVERSAL DEFINITIONS OF MYOCARDIALINFARCTION. THE UPPER REFERENCE LIMIT (URL) OF TROPONIN, DEFINED THE 99TH PERCENTILE OFcTnI DISTRIBUTION IN A REFERENCE POPULATION, HAS BEEN CONFIRMED THE DECISION THRESHOLDFOR MD DIAGNOSIS. Performed By: #### C MREP ####[facility] Ujyywtwacz[address] [place], [place] [address]Dr. Garima Pulliam CBC AUTO DIFFon 09-13-2022 BASO # 0.0 103/ul Normal 0.0-0.1 [facility] Comment on above: Performed By: #### C BC ####[facility] Djdtutexku[address] [place], [place] [address]Dr. Garima Heraclio Basophils/100 WBC (Bld) 0.1 % Critically low 0.2-2.0 [facility] Comment on above: Performed By: #### C BC ####[facility] Htefoifobl[address] [place], [place] [address]Dr. Garima Pulliam EO # 0.0 103/ul Normal 0.0-0.7 [facility] Comment on above: Performed By: #### C BC ####[facility] Kjbskrkexh[address] [place], [place] [address]Dr. Chapisrenu Pulliam Eosinophils/100 WBC (Bld) 0.0 % Critically low 0.9-7.0 [facility] Comment on above: Performed By: #### C BC ####[facility] Zcoxdayncx[address] [place], [place] [address]Dr. Garima Pulliam Erythrocyte distribution width (RBC) [Ratio] 13.6 % Normal 11.0-15.0 [facility] Comment on above: Performed By: #### C BC ####[facility] Fhkolsfhod[address] [place], [place] [address]Dr. Garima Pulliam Hematocrit (Bld) [Volume fraction] 48.2 % Normal 42.0-54.0 [facility] Comment on above: Performed By: #### C BC ####[facility] H[address]ecqlfz[address] [place], [place] [address]Dr. Garima Pulliam Hemoglobin (Bld) [Mass/Vol] 16.0 g/dL Normal 14.0-18.0 [facility] Comment on above: Performed By: #### C BC ####[facility] Qqryfdcozg[address] [place], [place] [address]Dr. Garima Pulliam IG # 0.02 10e3/ul Normal 0.00-0.03 [facility] Comment on above: Performed By: #### C BC ####[facility] Krjemoqbbm6796 [place] [id number]. Garima Pulliam IG % 0.3 % Normal 0.0-0.5 [facility] Comment on above: Performed By: #### C BC ####[facility] Zuqvlxobba9890 [place] [id number]. Garima Pulliam LYMPH # 0.5 103/ul Critically low 1.2-3.8 [facility] Comment on above: Performed By: #### C BC ####[facility] Exqsuwkeoe4190 [place] [id number]. Chapisrenu Pulliam Lymphocytes/100 WBC (Bld) 7.7 % Critically low 20.5-60.0 [facility] Comment on above: Performed By: #### C BC ####[facility] Jhxqvoinfi4895 [place] [address]Dr. Garima Pulliam MANUAL DIFF REQ NO Normal [facility] Comment on above: Performed By: #### C BC ####[facility] Mtqbolrlfe4461 [place] [id number]. Garima Pulliam MCH (RBC) [Entitic mass] 30.6 pg Normal 25.9-34.0 [facility] Comment on above: Performed By: #### C BC ####[facility] Cfmvzpjfxw8919 [place] [id number]. Garima Pulliam MCHC (RBC) [Mass/Vol] 33.2 g/dL Normal 29.9-35.2 [facility] Comment on above: Performed By: #### C BC ####[facility] Kmbgnjvhzq2572 [place] [phone]. Garima Pulliam MCV (RBC) [Entitic vol] 92.2 fL Normal 80.0-94.0 [facility] Comment on above: Performed By: #### C BC ####[facility] Iaclkjhjnn2015 [place] [id number]. Garima Pulliam MONO # 0.0 103/ul Critically low 0.3-0.8 [facility] Comment on above: Performed By: #### C BC ####[facility] Kalnyacwyy9409 [place] [id number]. Garima Pulliam Monocytes/100 WBC (Bld) 0.4 % Critically low 1.7-12.0 [facility] Comment on above: Performed By: #### C BC ####[facility] Xghegwijcv6902 [place] [id number]. Garima Pulliam NEUT # 6.2 103/ul Normal 1.4-6.5 [facility] Comment on above: Performed By: #### C BC ####[facility] Fqkhpbxxba6642 [place] [address]Dr. Garima Pulliam Neutrophils/100 WBC (Bld) 91.5 % Critically high 43.0-75.0 [facility] Comment on above: Performed By: #### C BC ####[facility] Ruoaqxjiug5911 [place] [address]Dr. Garima Pulliam Platelet mean volume (Bld) [Entitic vol] 8.7 fL Critically low 9.5-13.5 [facility] Comment on above: Performed By: #### C BC ####[facility] Fpynwwzcja[address] [place], [place] [address]Dr. Garima Pulliam PLT 179 103/ul Normal 150-450 [facility] Comment on above: Performed By: #### C BC ####[facility] Ykvirkrzbf4706 [place] [address]Dr. Garima Pulliam RBC 5.23 106/ul Normal 4.70-6.10 [facility] Comment on above: Performed By: #### C BC ####[facility] Dkbgfrfchy4319 [place] [id number]. Garima Pulliam WBC 6.7 103/ul Normal 4.0-11.0 [facility] Comment on above: Performed By: #### C BC ####[facility] Cextlabilo[address] [place], [place] [address]DrAdalberto Garima Heraclio PROF CHEM 8 (BAS METB)on Anion gap [Moles/Vol] 12.1 mmol/L Normal Th [facility] Comment on above: Performed By: #### B MP ####[facility] Vommckdtfi9403 [place] [address]Dr. Garima Pulliam Calcium [Mass/Vol] 8.7 mg/dL Normal 8.5-10.1 [facility] Comment on above: Performed By: #### B MP ####[facility] Wjpbfyonsj5760 [place] [address]Dr. Garima Pulliam Chloride [Moles/Vol] 105 mmol/L Normal 98-107 [facility] Comment on above: Performed By: #### B MP ####[facility] Sacfytkaul0870 [place] [address]Dr. Garima Pulliam CO2 [Moles/Vol] 25.5 mmol/L Normal 21.0-32.0 [facility] Comment on above: Performed By: #### B MP ####[facility] Lzbkljohxz6[address] [place], [place] [address]Dr. Garima Pulliam Creatinine [Mass/Vol] 0.63 mg/dL Critically low 0.70-1.30 [facility] Comment on above: Performed By: #### B MP ####[facility] Ufirwoamcp1856 [place] [address]Dr. Garima Pulliam EGFR-AF AUSTRALIAN >60 Normal >=60 [facility] Comment on above: Performed By: #### B MP ####[facility] Duxabzrvmw3808 [place] [address]Dr. Garima Pulliam EGFR-NON AF AUSTRALIAN >60 Normal >=60 [facility] Comment on above: Performed By: #### B MP ####[facility] Wtrefoarag7420 [place] [address]Dr. Garima Pulliam Glucose [Mass/Vol] 162 mg/dL Critically high 74-106 [facility] Comment on above: Performed By: #### B MP ####[facility] Egrqdcrugp7317 [place] [address]Dr. Garima Pulliam Potassium [Moles/Vol] 3.6 mmol/L Normal 3.5-5.1 [facility] Comment on above: Performed By: #### B MP ####[facility] Cmrjtvdfbs1750 [place] [phone]. Garima Pulliam Sodium [Moles/Vol] 139 mmol/L Normal 136-145 [facility] Comment on above: Performed By: #### B DAVID ####[facility] Aawcgavaqs1777 [place] [phone]. Garima Heraclio Urea nitrogen [Mass/Vol] 9.0 mg/dL Normal 7.0-18.0 [facility] Comment on above: Performed By: #### B DAVID ####[facility] Rqhqkqvjfy6726 [place] [phone]. Garima Pulliam Urea nitrogen/Creatinine [Mass ratio] 14.3 mg/mg Normal [facility] Comment on above: Performed By: #### B DAVID ####[facility] Smbdamlvhv0321 [place] [address]Dr. Garima Pulliam CARDIAC NASH ADMITon 022 CK [Catalytic activity/Vol] 304 U/L Normal 39-308 [facility] Comment on above: Performed By: #### B NANCY HERNANDEZ ####[facility] Ardcdmcqza9538 [place] [phone]. Garima Pulliam CK.MB [Mass/Vol] 11.81 ng/mL Critically high <=3.60 Th [facility] Comment on above: Performed By: #### B NANCY HERNANDEZ ####[facility] Uzezgeybwb0663 [place] [address]Dr. Garima Pulliam HSTROP 13.3 pg/mL Normal 4.0-76.1 [facility] Comment on above: Result Comment: CUT- OFF POINTS HAVE BEEN ESTABLISHED BASED ON THE FOURTH UNIVERSAL DEFINITIONS OF MYOCARDIALINFARCTION. THE UPPER REFERENCE LIMIT (URL) OF TROPONIN, DEFINED THE 99TH PERCENTILE OFcTnI DISTRIBUTION IN A REFERENCE POPULATION, HAS BEEN CONFIRMED THE DECISION THRESHOLDFOR MD DIAGNOSIS. Performed By: #### B DAVID, NANCY ####[facility] Xvavdhamwx3859 [place] [phone]. Garima Pulliam DORIS 133 ng/mL Critically high 16-96 [facility] Comment on above: Performed By: #### B ERVIN HERNANDEZDM ####[facility] Chnomukzah0117 [place] [phone]. Garima Heraclio CBC AUTO DIFFon 09-12-2022 BASO # 0.0 103/ul Normal 0.0-0.1 [facility] Comment on above: Performed By: #### C BC ####[facility] Hvynggrrut6625 [place] [id number]. Chapisrenu Pulliam Basophils/100 WBC (Bld) 0.2 % Normal 0.2-2.0 [facility] Comment on above: Performed By: #### C BC ####[facility] Fyxkckgqpc[address] [place], [place] [address]Dr. Chapisrenu Pulliam EO # 0.2 103/ul Normal 0.0-0.7 [facility] Comment on above: Performed By: #### C BC ####[facility] Lqypebeucb[address] [place], [place] [address]Dr. Chapisrenu Pulliam Eosinophils/100 WBC (Bld) 1.3 % Normal 0.9-7.0 [facility] Comment on above: Performed By: #### C BC ####[facility] Sqtrjcwebj[address] [place], [place] [address]Dr. Garima Heraclio Erythrocyte distribution width (RBC) [Ratio] 13.7 % Normal 11.0-15.0 [facility] Comment on above: Performed By: #### C BC ####[facility] Dllzjrgnzu[address] [place], [place] [address]Dr. Garima Pulliam Hematocrit (Bld) [Volume fraction] 46.4 % Normal 42.0-54.0 [facility] Comment on above: Performed By: #### C BC ####[facility] Szdfgpcjvd[address] [place], [place] [address]Dr. Garima Heraclio Hemoglobin (Bld) [Mass/Vol] 15.7 g/dL Normal 14.0-18.0 [facility] Comment on above: Performed By: #### C BC ####[facility] Mzwgdbonvy[address] [place], [place] [address]Dr. Garima Pulliam IG # 0.04 10e3/ul Critically high 0.00-0.03 [facility] Comment on above: Performed By: #### C BC ####[facility] Jxxonajkvj2910 [place] [id number] Garima Heraclio IG % 0.3 % Normal 0.0-0.5 [facility] Comment on above: Performed By: #### C BC ####[facility] Imwyqkpnsj5319 [place] [id number] Garima Heraclio LYMPH # 1.7 103/ul Normal 1.2-3.8 [facility] Comment on above: Performed By: #### C BC ####[facility] Cmbxpuzyne9780 [place] [id number] Garima Heraclio Lymphocytes/100 WBC (Bld) 11.5 % Critically low 20.5-60.0 [facility] Comment on above: Performed By: #### C BC ####[facility] Dfasrwpcsp4096 [place] [address]DrAdalberto Chapisrenu Pulliam MANUAL DIFF REQ NO Normal [facility] Comment on above: Performed By: #### C BC ####[facility] Mlrhmlgyal2231 [place] [id number] Garima Heraclio MCH (RBC) [Entitic mass] 31.0 pg Normal 25.9-34.0 [facility] Comment on above: Performed By: #### C BC ####[facility] Mypxbdkadd6533 [place] [id number] Gariam Heraclio MCHC (RBC) [Mass/Vol] 33.8 g/dL Normal 29.9-35.2 [facility] Comment on above: Performed By: #### C BC ####[facility] Pvjhmpvndq0261 [place] [id number] Garima Heraclio MCV (RBC) [Entitic vol] 91.7 fL Normal 80.0-94.0 [facility] Comment on above: Performed By: #### C BC ####[facility] Tytdrdiknu1776 [place] [id number] Pulliam MONO # 0.8 103/ul Normal 0.3-0.8 [facility] Comment on above: Performed By: #### C BC ####[facility] Yhnrtnqild0036 [place] [id number]. Garima Pulliam Monocytes/100 WBC (Bld) 5.2 % Normal 1.7-12.0 [facility] Comment on above: Performed By: #### C BC ####[facility] Oxibkepvev0855 [place] [id number]. Garima Pulliam NEUT # 11.7 103/ul Critically high 1.4-6.5 [facility] Comment on above: Performed By: #### C BC ####[facility] Xsafnpmnsn9413 [place] [phone]. Garima Pulliam Neutrophils/100 WBC (Bld) 81.5 % Critically high 43.0-75.0 [facility] Comment on above: Performed By: #### C BC ####[facility] Vhizjqqtcv8961 [place] [address]Dr. Garima Pulliam Platelet mean volume (Bld) [Entitic vol] 8.6 fL Critically low 9.5-13.5 [facility] Comment on above: Performed By: #### C BC ####[facility] Nztyvuinrn9139 [place] [address]Dr. Garima Pulliam PLT 191 103/ul Normal 150-450 [facility] Comment on above: Performed By: #### C BC ####[facility] Hnhmlfushp3248 [place] [phone]. Garima Pulliam RBC 5.06 106/ul Normal 4.70-6.10 [facility] Comment on above: Performed By: #### C BC ####[facility] Aubziwrpxl1497 [place] [id number]. Garima Pulliam WBC 14.4 103/ul Critically high 4.0-11.0 [facility] Comment on above: Performed By: #### C BC ####[facility] Stidgrkziz9642 [place] [id number] Garima Pulliam [facility]on [facility]24 SARS-CoV-2 (COVID-19) RNA MARIE+probe Ql (Unsp spec) Not detected Normal NOT DETECTED [facility] Comment on above: Result Comment: When diagnostic [...] for this test is supported by the Wellness Instructor of Health and Human Service's declaration that [...] be used). Performed By: #### C VDTBH ####[facility] Shsqawqqnp[address] [place], [place] [address]Dr. Garima Pulliam LACTATE/LACTIC ACIDon 2021 Lactate [Moles/Vol] 1.0 mmol/L Normal 0.4-1.9 [facility] Comment on above: Performed By: #### L ACT ####[facility] Ehszatuomz[address] [place], [place] [address]Dr. Garima Pulliam PROF CHEM 8 (BAS METB)on Anion gap [Moles/Vol] 11.6 mmol/L Normal [facility] Comment on above: Performed By: #### B MP, CMADM ####[facility] Adgpusvasw5892 [place] [address]Dr. Garima Pulliam Calcium [Mass/Vol] 9.2 mg/dL Normal 8.5-10.1 [facility] Comment on above: Performed By: #### B MP, CMADM ####[facility] Jberaizkia3749 [place] [address]Dr. Garima Pulliam Chloride [Moles/Vol] 105 mmol/L Normal 98-107 [facility] Comment on above: Performed By: #### B DAVID, CMADM ####[facility] Getqukfssw4451 [place] [id number]. Garima Pulliam CO2 [Moles/Vol] 25.9 mmol/L Normal 21.0-32.0 [facility] Comment on above: Performed By: #### B DAVID, CMADM ####[facility] Odbaipsiep6084 [place] [address]Dr. Garima Pulliam Creatinine [Mass/Vol] 0.72 mg/dL Normal 0.70-1.30 [facility] Comment on above: Performed By: #### B DAVID, CMADM ####[facility] Xedsugeyci1068 [place] [address]Dr. Garima Pulliam EGFR-AF AUSTRALIAN >60 Normal >=60 [facility] Comment on above: Performed By: #### B DAVID, CMADM ####[facility] Grdrgbxlbg6213 [place] [address]Dr. Garima Heraclio EGFR-NON AF AUSTRALIAN >60 Normal >=60 [facility] Comment on above: Performed By: #### B DAVID, CMADM ####[facility] Xshcqrbsus1840 [place] [address]Dr. Garima Pulliam Glucose [Mass/Vol] 111 mg/dL Critically high 74-106 [facility] Comment on above: Performed By: #### B DAVID, CMADM ####[facility] Mmpiqvykay3084 [place] [address]Dr. Garima Pulliam Potassium [Moles/Vol] 3.5 mmol/L Normal 3.5-5.1 [facility] Comment on above: Performed By: #### B DAVID, CMADM ####[facility] Qcppsxhdnp3944 [place] [address]Dr. Garima Pulliam Sodium [Moles/Vol] 139 mmol/L Normal 136-145 [facility] Comment on above: Performed By: #### B DAVID, CMADM ####[facility] Pwdnwyqgkh0114 [place] [address]Dr. Garima Pulliam Urea nitrogen [Mass/Vol] 7.0 mg/dL Normal 7.0-18.0 [facility] Comment on above: Performed By: #### B NANCY HERNANDEZ ####[facility] Yqrhlgfgsj3834 [place], [place] [address]Uk. Garima Pulliam Urea nitrogen/Creatinine [Mass ratio] 9.7 mg/mg Normal [facility] Comment on above: Performed By: #### B DAVID, CMADM ####[facility] Ncffvajmot7114 [place], [place] [address]Oy. Garima Pulliam XR CHEST 1 Von 09-12-2022 XR CHEST 1 V Normal [facility] Encounters Encounter Date Encounter Type Care Provider [...] Facility:[facility] Start: 11-27-2022 End: 11-27-2022 ambulatory LEIA Glover Facility:[facility] Start: 11-25-2022 End: 11-25-[address] KANE Glover Facility:[facility] Start: 11-20-2022 End: 11-20-[address] [...] Facility:[facility]1 Payers Date Payer Category Payer Unknown [id number] 1960 Medicaid [id number] 1960 Unknown [id number] 1960 Unknown [id number] 1955 Unknown [id number] 2.16.84 0.1.050060.3.579.2.593 1954 Unknown [id number] 2.16.84 0.1.584739.3.579.2.593 1954 Unknown [id number] 2.16.84 0.1.361085.3.579.2.593 1954 Unknown [id number] 2.16.84 0.1.241343.3.579.2.593 1954 Unknown [id number] 2.16.84 0.1.745712.3.579.2.593 1954 Unknown [id number] 2.16.84 0.1.658536.3.579.2.593 1954 Unknown [id number] 2.16.84 0.1.843723.3.579.2.593 1954 Unknown [id number] 2.16.84 0.1.052642.3.579.2.593 1954 Unknown [id number] 2.16.84 0.1.775311.3.579.2.593 1954 Unknown [id number] 2.16.84 0.1.384771.3.579.2.593 1954 Unknown [id number] 2.16.84 0.1.136336.3.579.2.593 1954 Unknown [id number] 2.16.84 0.1.548514.3.579.2.593 1954 Unknown [id number] 2.16.84 0.1.894098.3.579.2.593 1954 Unknown [id number] 2.16.84 0.1.976467.3.579.2.593 1954 Unknown [id number] 2.16.84 0.1.063695.3.579.2.593 1954 Unknown [id number] 2.16.84 0.1.696385.3.579.2.593 1954 Unknown [id number] 2.16.84 0.1.374098.3.579.2.593 1954 Unknown [id number] 2.16.84 0.1.752910.3.579.2.593 1954 Unknown [id number] 2.16.84 0.1.905158.3.579.2.593 1954 Unknown [id number] 2.16.84 0.1.644978.3.579.2.593 Summary Purpose Family History No Family History Records Found Advance Directives No Advanced Directives Records Found Additional Source Comments (unrecognized sect ion and content) No Status Records Found INFORMATION SOURCE (unrecogn ized section and content) DATE CREATED AUTHOR 04/08/2023 [facility] FOR RECORDS PERTAINING TO PATIENTS WHO [...] BE BASED ON THE PRIMARY CLINICAL RECORDS. [facility] [email or web address] [facility]. provides no warranty or guarantee of the accuracy or completeness of information in this document.
--- NOTE | 2023-12-15 22:23 | ED_ITS ---
HPI - SOB/Dyspnea General Chief Complaint: Shortness of Breath/Dyspnea Stated Complaint: shortness of breath Time Seen by Provider: 12/15/23 22:09 Source: patient Mode of arrival: Wheelchair History of Present Illness HPI Narrative: 68-year-old male presents to the Emergency Department for shortness of breath. He has a history of chronic obstructive pulmonary disease and this time it started about twenty-four hours ago. No fever or hemoptysis or productive cough. He does not complain to me of chest pain. He's been taking his nebulizer treatments at home. Related Data Home Medications Medication Instructions Recorded Confirmed losartan 25 mg tablet (Cozaar) 25 mg PO DAILY 10/22/23 11/02/23 omeprazole 20 mg capsule,delayed 20 mg PO DAILY 10/22/23 11/02/23 release albuterol sulfate 2.5 mg/3 mL 2.5 mg inhalation Q6H 11/02/23 11/02/23 (0.083 %) solution for nebulization Allergies Allergy/AdvReac Type Severity Reaction Status Date / Time No Known Drug Allergies Allergy Verified 11/24/23 16:17 Review of Systems ROS Narrative A ten point review of systems is negative except as noted above. [facility] Medical History (Updated 12/15/23 @ 23:37 by Diego Lilly MD) RLL pneumonia ?J18.9 - Pneumonia, unspecified organism (ICD-10) COPD (chronic obstructive pulmonary disease) ?J44.9 - Chronic obstructive pulmonary disease, unspecified (ICD-10) Social History Smoking status: Current every day smoker Exam Narrative Exam Narrative: Nurses note and vital signs reviewed and patient is not hypoxic. General: The patient appears well and in no apparent distress. Patient is resting comfortably on cart. Skin: Warm, dry, no pallor noted. There is no rash noted. Head: Normocephalic, atraumatic Eye: Normal conjunctiva, no drainage Ears, Nose, Mouth, and Throat: oral mucosa is moist. Nares patent. Cardiovascular: Regular Rate and Rhythm Respiratory: Patient is in no distress, no accessory muscle use, lungs show some rhonchi, breath sounds are equal Back: non-tender GI: soft and nontender Musculoskeletal: The patient has no evidence of calf tenderness, no pitting edema, symmetrical pulses noted bilaterally Neurological: A&O, normal speech Psychiatric: Cooperative Constitutional Vital Signs, click to edit/add: Last Vital Signs Pulse 80 12/15/23 22:48 Resp 18 12/15/23 22:48 BP 164/90 H 12/15/23 23:27 Pulse Ox 95 12/15/23 23:20 O2 Del Method Room Air 12/15/23 22:27 Course Vital Signs Vital signs: Vital Signs Pulse Rate 87 12/15/23 22:08 Respiratory Rate 22 12/15/23 22:08 Blood Pressure 167/138 H 12/15/23 22:08 Pulse Oximetry 95 12/15/23 22:08 Oxygen Delivery Method Room Air 12/15/23 22:08 Pulse Rate 80 12/15/23 22:48 Respiratory Rate 18 12/15/23 22:48 Blood Pressure 164/90 H 12/15/23 23:27 Pulse Oximetry 95 12/15/23 23:20 Oxygen Delivery Method Room Air 12/15/23 22:27 MDM - SOB/Dyspnea MDM Narrative Medical decision making narrative: he was given aerosol treatment and IV Solu-Medrol. He is feeling much better now and is able to be discharged home. I've no clinical suspicion of pneumothorax or pneumonia. I've no clinical suspicion of Covid or influenza. Treatment diagnosis and follow-up were discussed with the patient. Differential Diagnosis Differential diagnosis: Likely acute exacerbation of chronic obstructive airways disease, community acquired pneumonia and other (anxiety, Covid) Discharge Plan Discharge Chief Complaint: Shortness of Breath/Dyspnea Clinical Impression: Acute exacerbation of chronic obstructive pulmonary disease (COPD) Patient Disposition: Home, Self-Care Time of Disposition Decision: 23:37 Condition: Good Mode of Transportation: Private Vehicle Prescriptions / Home Meds: No Action losartan [Cozaar] 25 mg tablet 25 mg PO DAILY omeprazole 20 mg capsule,delayed release(DR/EC) 20 mg PO DAILY albuterol sulfate 2.5 mg /3 mL (0.083 %) solution for nebulization 2.5 mg inhalation Q6H Instructions: COPD (Chronic Obstructive Pulmonary Disease) (ED) Stand Alone Forms: Portal Instructions Referrals: Physician,Non-Staff, MD [Primary Care Provider] - 1 week
--- NOTE | 2023-12-15 22:23 | ECG_ITS ---
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
--- NOTE | 2023-12-15 22:28 | ECG_ITS ---
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
[2023-12-15] MEDS: ALBUTEROL SULFATE 2.5 MG/3 ML VIAL NEB IH (22:48)
[2023-12-15] MEDS: METHYLPREDNISOLONE SOD SUCC PF 125 MG/2 ML VIAL IVP (22:49)
== END 2023-12-15 23:52 | disposition home or self-care (01) ==
PROVIDERS: Emergency Provider Emergency Medicine
DX: J44.1 Chronic obstructive pulmonary disease with (acute) exacerbation (principal); Z79.899 Other long term (current) drug therapy; Z87.01 Personal history of pneumonia (recurrent)
CPT/HCPCS: 93005; 94640; 96374; 99284; J2930

== ENCOUNTER 2023-12-17 06:41 | Emergency (ER) | payer MEDICARE, SELFPAY ==
[2023-12-17 06:44] VITALS: BP 181/87; PULSE 72; RESP 18; TEMP 36.7; O2SAT 94; BMI 25.0
[2023-12-17 06:56] VITALS: O2SAT 94
--- OUTSIDE RECORDS SUMMARY | 2023-12-17 06:59 | XMS_ITS | CCD ---
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 Garima Pulliam Basophils/100 WBC (Bld) 0.3 % Normal 0.2-2.0 [facility] Comment on above: Performed By: #### C BC ####[facility] Nhadunwkcs0037 [place], [place] [address]YnAdalberto Pulliam EO # 0.3 103/ul Normal 0.0-0.7 [facility] Comment on above: Performed By: #### C BC ####[facility] Spcedgtkrc7818 [place] [phone]. Garima Pulliam Eosinophils/100 WBC (Bld) 2.8 % Normal 0.9-7.0 [facility] Comment on above: Performed By: #### C BC ####[facility] Qhqdjmazxj3572 [place] [phone]. Garima Pulliam Erythrocyte distribution width (RBC) [Ratio] 13.4 % Normal 11.0-15.0 The [facility] Comment on above: Performed By: #### C BC ####[facility] Zkvecsf[address] [place], [place] [id number]. Garima Pulliam Hematocrit (Bld) [Volume fraction] 45.7 % Normal 42.0-54.0 The [facility] Comment on above: Performed By: #### C BC ####[facility] Xsxkreadjt[address] [place], [place] [address]Dr. Garima Pulliam Hemoglobin (Bld) [Mass/Vol] 15.2 g/dL Normal 14.0-18.0 The [facility] Comment on above: Performed By: #### C BC ####[facility] [address]ps[address]emq[address] [place], [place] [address]Dr. Garima Pulliam IG # 0.02 10e3/ul Normal 0.00-0.03 The [facility] Comment on above: Performed By: #### C BC ####[facility] Nigchcnswj[address] [place], [place] [address]Dr. Garima Pulliam IG % 0.2 % Normal 0.0-0.5 The [facility] Comment on above: Performed By: #### C BC ####[facility] Yeblxaluxn[address] [place], [place] [address]Dr. Garima Pulliam LYMPH # 2.1 103/ul Normal 1.2-3.8 The [facility] Comment on above: Performed By: #### C BC ####[facility] Drhcucqjcq8604[address] [place], [place] [address]Dr. Garima Pulliam Lymphocytes/100 WBC (Bld) 23.7 % Normal 20.5-60.0 The [facility] Comment on above: Performed By: #### C BC ####[facility] Wmdjrbjica0396 [place] [phone]. Garima Pulliam MANUAL DIFF REQ NO Normal [facility] Comment on above: Performed By: #### C BC ####[facility] Ssbgslrfmc7782 [place] [phone]. Garima Pulliam MCH (RBC) [Entitic mass] 30.4 pg Normal 25.9-34.0 [facility] Comment on above: Performed By: #### C BC ####[facility] Niluljvbhs[address] [place], [place] [address]Dr. Garima Pulliam MCHC (RBC) [Mass/Vol] 33.3 g/dL Normal 29.9-35.2 The [facility] Comment on above: Performed By: #### C BC ####[facility] Vfsvlfxabm[address] [place], [place] [address]Dr. Garima Pulliam MCV (RBC) [Entitic vol] 91.4 fL Normal 80.0-94.0 [facility] Comment on above: Performed By: #### C BC ####[facility] Pilrjivtoo[address] [place], [place] [address]Dr. Garima Pulliam MONO # 0.7 103/ul Normal 0.3-0.8 [facility] Comment on above: Performed By: #### C BC ####[facility] [address]iuwssyj[address] [place], [place] [address]Dr. Garima Heraclio Monocytes/100 WBC (Bld) 8.3 % Normal 1.7-12.0 [facility] Comment on above: Performed By: #### C BC ####[facility] Djbjalreqt[address] [place], [place] [address]Dr. Garima Pulliam NEUT # 5.8 103/ul Normal 1.4-6.5 The [facility] Comment on above: Performed By: #### C BC ####[facility] Uavrozceul8[address] [place], [place] [address]Dr. Garima Pulliam Neutrophils/100 WBC (Bld) 64.7 % Normal 43.0-75.0 [facility] Comment on above: Performed By: #### C BC ####[facility] Mveqgpbthj3707 [place] [phone]. Garima Pulliam Platelet mean volume (Bld) [Entitic vol] 8.6 fL Critically low 9.5-13.5 [facility] Comment on above: Performed By: #### C BC ####[facility] Ibanrpyrvj5838 [place] [address]Dr. Garima Pulliam PLT 230 103/ul Normal 150-450 [facility] Comment on above: Performed By: #### C BC ####[facility] Lycforkxeu7959 [place] [address]Dr. Garima Pulliam RBC 5.00 106/ul Normal 4.70-6.10 [facility] Comment on above: Performed By: #### C BC ####[facility] Bstdrfcwsd5099 [place] [address]Dr. Garima Pulliam WBC 9.0 103/ul Normal 4.0-11.0 [facility] Comment on above: Performed By: #### C BC ####[facility] S[address]lbzhisrn[address] [place], [place] [address]Dr. Garima Pulliam MAGNESIUMon 04-04-2023 Magnesium [Mass/Vol] 1.8 mg/dL Normal 1.8-2.4 [facility] Comment on above: Performed By: #### M G ####[facility] Qtwprvxsey[address] [place], [place] [address]Dr. Garima Pulliam PROF 14(COMP METB)on 023 Albumin [Mass/Vol] 3.8 g/dL Normal 3.4-5.[address] [facility] Comment on above: Performed By: #### C MP ####[facility] Bejuncluty[address]15 [place] [address]Dr. Garima Pulliam Albumin/Globulin [Mass ratio] 1.2 {ratio} Normal [facility] Comment on above: Performed By: #### C MP ####[facility] Shjfqzbfoc0861 [place] [address]Dr. Garima Pulliam ALP [Catalytic activity/Vol] 84 U/L Normal 46-116 [facility] Comment on above: Performed By: #### C MP ####[facility] Etnntydoer1089 [place] [phone]. Garima Pulliam ALT [Catalytic activity/Vol] 31 U/L Normal 16-63 [facility] Comment on above: Performed By: #### C MP ####[facility] Avwfdelxug3384 [place] [phone]. Garima Pulliam Anion gap [Moles/Vol] 12.2 mmol/L Normal [facility] Comment on above: Performed By: #### C MP ####[facility] Rzoksschib9250 [place] [phone]. Garima Pulliam AST [Catalytic activity/Vol] 23 U/L Normal 15-37 [facility] Comment on above: Performed By: #### C MP ####[facility] Sdwasfcids[address] [place], [place] [address]Dr. Garima Pulliam Bilirubin [Mass/Vol] 0.5 mg/dL Normal 0.2-1.0 [facility] Comment on above: Performed By: #### C MP ####[facility] [address]vyhmltj[address] [place], [place] [address]Dr. Garima Pulliam Calcium [Mass/Vol] 9.2 mg/dL Normal 8.5-10.[address] [facility] Comment on above: Performed By: #### C MP ####[facility] F[address]rlrrzxv20[address] [place], [place] [address]Dr. Garima Pulliam Chloride [Moles/Vol] 103 mmol/L Normal 98-107 [facility] Comment on above: Performed By: #### C MP ####[facility] Pgpkcptlcu[address] [place], [place] [address]Dr. Garima Pulliam CO2 [Moles/Vol] 28.5 mmol/L Normal 21.0-32.0 [facility] Comment on above: Performed By: #### C MP ####[facility] Hfonarwgwp[address] [place], [place] [address]Dr. Garima Pulliam Creatinine [Mass/Vol] 0.74 mg/dL Normal 0.70-1.30 [facility] Comment on above: Performed By: #### C MP ####[facility] Edgqrheatd6580 [place] [phone]. Garima Pulliam EGFR-AF BURUNDIAN >60 Normal >=60 [facility] Comment on above: Performed By: #### C MP ####[facility] Ngmvmndhhh1326 [place] [phone]. Garima Pulliam EGFR-NON AF [place]DIAN >60 Normal >=60 [facility] Comment on above: Performed By: #### C MP ####[facility] Zcjjijcvvr0172 [place] [address]Dr. Garima Pulliam Globulin (S) [Mass/Vol] 3.1 g/dL Normal [facility] Comment on above: Performed By: #### C MP ####[facility] Pdzypekbcj7557 [place] [address]Dr. Garima Pulliam Glucose [Mass/Vol] 93 mg/dL Normal 74-106 [facility] Comment on above: Performed By: #### C MP ####[facility] Wwhqzebeuk5460 [place] [address]Dr. Garima Pulliam Potassium [Moles/Vol] 3.7 mmol/L Normal 3.5-5.1 [facility] Comment on above: Performed By: #### C MP ####[facility] Qbgbrsllxo3134 [place] [address]Dr. Garima Pulliam Protein [Mass/Vol] 6.9 g/dL Normal 6.4-8.2 [facility] Comment on above: Performed By: #### C MP ####[facility] Medkaivzey7028 [place] [address]Dr. Garima Pulliam Sodium [Moles/Vol] 140 mmol/L Normal 136-145 [facility] Comment on above: Performed By: #### C MP ####[facility] Nezizcbddq0315 [place] [address]Dr. Garima Pulliam Urea nitrogen [Mass/Vol] 8.0 mg/dL Normal 7.0-18.0 [facility] Comment on above: Performed By: #### C MP ####[facility] Bhsrqcpdcn9772 [place] [address]Dr. Garima Pulliam Urea nitrogen/Creatinine [Mass ratio] 10.8 mg/mg Normal [facility] Comment on above: Performed By: #### C MP ####[facility] Hupueohjgq0797 [place] [address]Dr. Garima Pulliam AMMONIAon 03-30-2023 Ammonia (P) [Moles/Vol] 11 umol/L Normal 11-32 [facility] Comment on above: Performed By: #### A MM ####[facility] Dtlgozbyoo[address] [place], [place] [address]Dr. Garima Pulliam CARDIAC NASH ADMITon 023 CK [Catalytic activity/Vol] 232 U/L Normal 39-308 [facility] Comment on above: Performed By: #### C DAVID, CMADM ####[facility] Xsohovpqkz5507 [place] [address]Dr. Chapisrenu Pulliam CK.MB [Mass/Vol] 4.83 ng/mL Critically high <=3.60 [facility] Comment on above: Performed By: #### C DAVID, CMADM ####[facility] Kfeiutezgw[address] [place], [place] [address]Dr. Garima Pulliam HSTROP 10.5 pg/mL Normal 4.0-76.1 [facility] Comment on above: Result Comment: CUT- OFF POINTS HAVE BEEN ESTABLISHED BASED ON THE FOURTH UNIVERSAL DEFINITIONS OF MYOCARDIALINFARCTION. THE UPPER REFERENCE LIMIT (URL) OF TROPONIN, DEFINED THE 99TH PERCENTILE OFcTnI DISTRIBUTION IN A REFERENCE POPULATION, HAS BEEN CONFIRMED THE DECISION THRESHOLDFOR MD DIAGNOSIS. Performed By: #### C DAVID, CMADM ####[facility] Rruruqomxe9671 [place] [address]Dr. Chapisrenu Pulliam DORIS 79 ng/mL Normal 16-96 [facility] Comment on above: Performed By: #### C DAVID, CMADM ####[facility] Wufaekissq[address] [place], [place] [address]Dr. Chapisrenu Pulliam CBC AUTO DIFFon 03-30-2023 BASO # 0.0 103/ul Normal 0.0-0.1 [facility] Comment on above: Performed By: #### C BC ####[facility] Chtsscyqrv8812 [place] [phone]. Garima Pulliam Basophils/100 WBC (Bld) 0.1 % Critically low 0.2-2.0 [facility] Comment on above: Performed By: #### C BC ####[facility] Oxolxgavou6[address] [place], [place] [address]Dr. Garima Pulliam EO # 0.3 103/ul Normal 0.0-0.7 [facility] Comment on above: Performed By: #### C BC ####[facility] Uqnapulyny347[address] [place], [place] [address]Dr. Garima Pulliam Eosinophils/100 WBC (Bld) 3.3 % Normal 0.9-7.0 [facility] Comment on above: Performed By: #### C BC ####[facility] Snebzjycec8[address] [place], [place] [address]Dr. Garima Pulliam Erythrocyte distribution width (RBC) [Ratio] 13.5 % Normal 11.0-15.0 [facility] Comment on above: Performed By: #### C BC ####[facility] Rgbtjpzeno[address] [place], [place] [address]Dr. Garima Pulliam Hematocrit (Bld) [Volume fraction] 42.9 % Normal 42.0-54.0 [facility] Comment on above: Performed By: #### C BC ####[facility] Fnpsgcdyio8[address] [place], [place] [address]Dr. Garima Pulliam Hemoglobin (Bld) [Mass/Vol] 13.9 g/dL Critically low 14.0-18.0 [facility] Comment on above: Performed By: #### C BC ####[facility] Nkhcnmovcs0[address] [place], [place] [address]Dr. Garima Pulliam IG # 0.01 10e3/ul Normal 0.00-0.03 [facility] Comment on above: Performed By: #### C BC ####[facility] Gfnookxdim9140[address] [place], [place] [address]Dr. Garima Pulliam IG % 0.1 % Normal 0.0-0.5 [facility] Comment on above: Performed By: #### C BC ####[facility] Ecfwrhzrhh8067 [place] [phone]. Garima Pulliam LYMPH # 1.7 103/ul Normal 1.2-3.8 [facility] Comment on above: Performed By: #### C BC ####[facility] Tinvpuhbjc9431 [place] [phone]. Garima Pulliam Lymphocytes/100 WBC (Bld) 22.8 % Normal 20.5-60.0 [facility] Comment on above: Performed By: #### C BC ####[facility] Zvhfxykwys2726 [place] [phone]. Garima Pulliam MANUAL DIFF REQ NO Normal [facility] Comment on above: Performed By: #### C BC ####[facility] Bcbkdjazug4672 [place] [phone]. Garima Pulliam MCH (RBC) [Entitic mass] 30.5 pg Normal 25.9-34.0 [facility] Comment on above: Performed By: #### C BC ####[facility] Iczrgowzbc4108 [place] [phone]. Garima Pulliam MCHC (RBC) [Mass/Vol] 32.4 g/dL Normal 29.9-35.2 [facility] Comment on above: Performed By: #### C BC ####[facility] Fodidrcobg7787 [place] [phone]. Garima Pulliam MCV (RBC) [Entitic vol] 94.1 fL Critically high 80.0-94.0 [facility] Comment on above: Performed By: #### C BC ####[facility] Nxvluolpak3756 [place] [phone]. Garima Pulliam MONO # 0.7 103/ul Normal 0.3-0.8 [facility] Comment on above: Performed By: #### C BC ####[facility] Hhwjfuheme0462 [place] [phone]. Garima Pulliam Monocytes/100 WBC (Bld) 8.6 % Normal 1.7-12.0 [facility] Comment on above: Performed By: #### C BC ####[facility] Qfhyfsbtle6097 [place] [phone]. Garima Pulliam NEUT # 4.9 103/ul Normal 1.4-6.5 [facility] Comment on above: Performed By: #### C BC ####[facility] Ratwaypwij4757 [place] [phone]. Garima Pulliam Neutrophils/100 WBC (Bld) 65.1 % Normal 43.0-75.0 [facility] Comment on above: Performed By: #### C BC ####[facility] Dohrbgcqyt8070 [place] [phone]. Garima Pulliam Platelet mean volume (Bld) [Entitic vol] 8.5 fL Critically low 9.5-13.5 [facility] Comment on above: Performed By: #### C BC ####[facility] Jheubufefs6040 [place] [address]Dr. Garima Pulliam PLT 219 103/ul Normal 150-450 [facility] Comment on above: Performed By: #### C BC ####[facility] Dbbflqhzbr3960 [place] [phone]. Garima Pulliam RBC 4.56 106/ul Critically low 4.70-6.10 [facility] Comment on above: Performed By: #### C BC ####[facility] Jxysohtiit8199 [place] [phone]. Garima Pulliam WBC 7.6 103/ul Normal 4.0-11.0 [facility] Comment on above: Performed By: #### C BC ####[facility] Mkbohxzwpm8965 [place] [phone]. Garima Pulliam LACTATE/LACTIC ACIDon 2022 Lactate [Moles/Vol] 1.2 mmol/L Normal 0.4-2.0 [facility] Comment on above: Performed By: #### L ACT ####[facility] Hvdfanliau1102 [place] [phone]. Garima Pulliam MAGNESIUMon 03-30-2023 Magnesium [Mass/Vol] 1.8 mg/dL Normal 1.8-2.4 [facility] Comment on above: Performed By: #### M G ####[facility] Yfngplgbko2309 [place] [address]Dr. Garima Pulliam PROF 14(COMP METB)on 023 Albumin [Mass/Vol] 3.5 g/dL Normal 3.4-5.[address] [facility] Comment on above: Performed By: #### C DAVID, NANCY ####[facility] Hkmqriutks5215 [place] [address]Dr. Garima Pulliam Albumin/Globulin [Mass ratio] 1.2 {ratio} Normal [facility] Comment on above: Performed By: #### C NANCY HERNANDEZ ####[facility] [address]qjeoaob[address] [place], [place] [address]Dr. Garima Pulliam ALP [Catalytic activity/Vol] 85 U/L Normal 46-116 [facility] Comment on above: Performed By: #### C DAVID, NANCY ####[facility] [address]jkluyhju[address] [place], [place] [address]Dr. Garima Pulliam ALT [Catalytic activity/Vol] 29 U/L Normal 16-63 [facility] Comment on above: Performed By: #### C NANCY HERNANDEZ ####[facility] Mfspjcxvqw0772 [place] [address]Dr. Garima Pulliam Anion gap [Moles/Vol] 8.0 mmol/L Normal [facility] Comment on above: Performed By: #### C DAVID, NANCY ####[facility] [address]zthugxqch7[address] [place], [place] [address]Dr. Garima Pulliam AST [Catalytic activity/Vol] 18 U/L Normal 15-37 [facility] Comment on above: Performed By: #### C DAVID, NANCY ####[facility] [address]byywbcsw[address] [place], [place] [address]Dr. Garima Pulliam Bilirubin [Mass/Vol] 0.4 mg/dL Normal 0.2-1.0 [facility] Comment on above: Performed By: #### C NANCY HERNANDEZ ####[facility] Puhlerfvjk1451 [place] [address]Dr. Garima Pulliam Calcium [Mass/Vol] 8.8 mg/dL Normal 8.5-10.1 [facility] Comment on above: Performed By: #### C DAVID, NANCY ####[facility] Paduccbbvb1581 [place] [phone]. Garima Pulliam Chloride [Moles/Vol] 108 mmol/L Critically high 98-107 [facility] Comment on above: Performed By: #### C DAVID, NANCY ####[facility] Eadxghrznw6014 [place] [phone]. Garima Pulliam CO2 [Moles/Vol] 29.6 mmol/L Normal 21.0-32.0 [facility] Comment on above: Performed By: #### C DAVID, NANCY ####[facility] [address]klcklv[address] [place], [place] [address]Dr. Garima Pulliam Creatinine [Mass/Vol] 0.77 mg/dL Normal 0.70-1.30 [facility] Comment on above: Performed By: #### C DAVID, NANCY ####[facility] Fvjbordmjd9802 [place] [address]Dr. Garima Pulliam EGFR-AF [place]DI[place] >60 Normal >=60 [facility] Comment on above: Performed By: #### C DAVID, NANCY ####[facility] Totkiyvbgd6668 [place] [phone]. Garima Pulliam EGFR-NON AF [place] >60 Normal >=60 [facility] Comment on above: Performed By: #### C DAVID, NANCY ####[facility] Grvofizfmd1358 [place] [phone]. Garima Pulliam Globulin (S) [Mass/Vol] 2.8 g/dL Normal [facility] Comment on above: Performed By: #### C DAVID, NANCY ####[facility] Elrejcantk5002 [place] [address]Dr. Garima Pulliam Glucose [Mass/Vol] 207 mg/dL Critically high 74-106 [facility] Comment on above: Performed By: #### C DAVID, NANCY ####[facility] Pdpddmixxx28[address] [place] [address]Dr. Garima Pulliam Potassium [Moles/Vol] 4.6 mmol/L Normal 3.5-5.1 [facility] Comment on above: Performed By: #### C DAVID, CMADM ####[facility] Wycuigclzb4[address] [place] [address]Dr. Garima Pulliam Protein [Mass/Vol] 6.3 g/dL Critically low 6.4-8.2 [facility] Comment on above: Performed By: #### C DAVID, CMADM ####[facility] Eenekoyaue[address] [place] [address]Dr. Garima Pulliam Sodium [Moles/Vol] 141 mmol/L Normal 136-[address] [facility] Comment on above: Performed By: #### C DAVID, CMADM ####[facility] Xlatvfgnmr0795 [place] [address]Dr. Garima Pulliam Urea nitrogen [Mass/Vol] 9.0 mg/dL Normal 7.0-18.0 [facility] Comment on above: Performed By: #### C DAVID, CMADM ####[facility] Bscsdvieoj0626 [place] [address]Dr. Garima Uplliam Urea nitrogen/Creatinine [Mass ratio] 11.7 mg/mg Normal [facility] Comment on above: Performed By: #### C DAVID, CMADM ####[facility] Urltyifefm14[address] [place] [address]Dr. Garima Pulliam XR CHEST 1 Von 03-30-2023 XR CHEST 1 V Normal [facility] BNPon 03-27-2023 Natriuretic peptide B (Bld) [Mass/Vol] 251.0 pg/mL Normal <=900.0 [facility] Comment on above: Performed By: #### C MP, BNP, LIPID ####[facility] [address]vfm[address] [place], [place] [address]Dr. Garima Heraclio GLYCOHEMOGLOBIN A1Con 2022 ADA RECOMMENDATION SEE BELOW Normal [facility] Comment on above: Result Comment: ADA RECOMMENDED LIMIT 4.0 - 6.0 ADA THERAPEUTIC TARGET < 7.0 ACTION SUGGESTED > 7.0 Performed By: #### A 1C ####[facility] Rrgzenulwk87[address] [place] [address]Dr. Garima Pulliam Glucose [Mass/Vol] 180 mg/dL Normal [facility] Comment on above: Performed By: #### A 1C ####[facility] Epnuyfbmyc195[address] [place], [place] [address]Dr. Garima Pulliam HbA1c (Bld) [Mass fraction] 7.9 % Critically high 4.5-6.2 [facility] Comment on above: Performed By: #### A 1C ####[facility] Dybrjjnddb[address] [place], [place] [address]Dr. Garima Pulliam HEMOGRAM AND PLATELon 2022 Hematocrit (Bld) [Volume fraction] 45.7 % Normal 42.0-54.0 [facility] Comment on above: Performed By: #### H H ####[facility] Qvppeofeyp64[address] [place], [place] [address]Dr. Garima Pulliam Hemoglobin (Bld) [Mass/Vol] 15.1 g/dL Normal 14.0-18.0 [facility] Comment on above: Performed By: #### H H ####[facility] Ziizsiyqwu[address] [place], [place] [address]Dr. Garima Pulliam MCH (RBC) [Entitic mass] 30.0 pg Normal 25.9-34.0 [facility] Comment on above: Performed By: #### H H ####[facility] [address]vwtnrpf4[address] [place], [place] [address]Dr. Garima Pulliam MCHC (RBC) [Mass/Vol] 33.0 g/dL Normal 29.9-35.2 [facility] Comment on above: Performed By: #### H H ####[facility] Pcjtdnszjw022[address] [place], [place] [address]Dr. Garima Pulliam MCV (RBC) [Entitic vol] 90.7 fL Normal 80.0-94.0 [facility] Comment on above: Performed By: #### H H ####[facility] Wwdenfrcny99[address] [place], [place] [address]Dr. Garima Pulliam PLT 222 103/ul Normal 150-450 [facility] Comment on above: Performed By: #### H H ####[facility] Ydzmrntkub8[address] [place] [id number]. Garima Pulliam RBC 5.04 106/ul Normal 4.70-6.10 [facility] Comment on above: Performed By: #### H H ####[facility] Mdlahfcaft2606 [place] [phone]. Garima Pulliam WBC 8.7 103/ul Normal 4.0-11.0 [facility] Comment on above: Performed By: #### H H ####[facility] Gfeuwzrqxg[address] [place] [phone]. Garima Pulliam LIPID PROFILEon 03-27-2023 CHOL-HDL RATIO NORM SEE BELOW Normal [facility] Comment on above: Result Comment: 3.3 - 4.4 LOW RISK 4.4 - 7.1 AVERAGE RISK 7.1 - 11.0 MODERATE RISK >11.0 HIGH RISK Performed By: #### C MP, BNP, LIPID ####[facility] Jmpduddoth33[address] [place] [phone]. Garima Pulliam Cholesterol [Mass/Vol] 113 mg/dL Normal <=200 [facility] Comment on above: Performed By: #### C MP, BNP, LIPID ####[facility] Zvdmcmqlit3823 [place] [phone]. Garima Pulliam Cholesterol in HDL [Mass/Vol] 51 mg/dL Normal 40-60 [facility] Comment on above: Performed By: #### C MP, BNP, LIPID ####[facility] Dvfqdvnqtk2454 [place] [phone]. Garima Pulliam Cholesterol in LDL [Mass/Vol] 49.8 mg/dL Normal [facility] Comment on above: Performed By: #### C MP, BNP, LIPID ####[facility] Yvfnfjxcty40[address] [place] [phone]. Garima Pulliam Cholesterol.total/Cho lesterol in HDL [Mass ratio] 2.2 {ratio} Normal [facility] Comment on above: Performed By: #### C MP, BNP, LIPID ####[facility] Ywojxwkxnk60[address] [place] [address]Dr. Garima Pulliam HDL NORMAL > or = 60 mg/dl - LOW CARDIOVASCULAR RISK <40 mg/dl - HIGH CARDIOVASCULAR RISK Normal [facility] Comment on above: Performed By: #### C MP, BNP, LIPID ####[facility] Cuozkwjlht[address] [place] [address]Dr. Garima Pulliam LDL CALC NORMAL SEE BELOW Normal [facility] Comment on above: Result Comment: <100 mg/dl OPTIMAL 100 - 129 mg/dl NEAR OR ABOVE OPTIMAL 130 - 159 mg/dl BORDERLINE HIGH 160 - 189 mg/dl HIGH >190 mg/dl VERY HIGH Performed By: #### C MP, BNP, LIPID ####[facility] Zekduycupt8[address] [place] [address]Dr. Garima Pulliam Triglyceride [Mass/Vol] 61 mg/dL Normal <=150 [facility] Comment on above: Performed By: #### C MP, BNP, LIPID ####[facility] Xzfyxwckqm3741 [place] [address]Dr. Garima Pulliam VLDL CALC 12.2 mg/dL Normal [facility] Comment on above: Performed By: #### C MP, BNP, LIPID ####[facility] Ahghhejyae7[address] [place] [address]Dr. Garima Pulliam PROF 14(COMP METB)on 023 Albumin [Mass/Vol] 3.5 g/dL Normal 3.4-5.[address] [facility] Comment on above: Performed By: #### C MP, BNP, LIPID ####[facility] Ppygcxfjlv65[address] [place] [address]Dr. Garima Pulliam Albumin/Globulin [Mass ratio] 1.2 {ratio} Normal [facility] Comment on above: Performed By: #### C MP, BNP, LIPID ####[facility] Vcwesmnmrv58[address] [place] [address]Dr. Garima Pulliam ALP [Catalytic activity/Vol] 82 U/L Normal 46-116 [facility] Comment on above: Performed By: #### C MP, BNP, LIPID ####[facility] Ksvxbicqqv6607 [place] [phone]. Garima Pulliam ALT [Catalytic activity/Vol] 33 U/L Normal 16-63 [facility] Comment on above: Performed By: #### C MP, BNP, LIPID ####[facility] Oelyqggarv3496 [place] [phone]. Garima Pulliam Anion gap [Moles/Vol] 9.9 mmol/L Normal [facility] Comment on above: Performed By: #### C MP, BNP, LIPID ####[facility] Zajrdefyjg6788 [place] [address]Dr. Garima Pulliam AST [Catalytic activity/Vol] 24 U/L Normal 15-37 [facility] Comment on above: Performed By: #### C MP, BNP, LIPID ####[facility] Rlovkvkurm3577 [place] [address]Dr. Garima Pulliam Bilirubin [Mass/Vol] 0.6 mg/dL Normal 0.2-1.0 [facility] Comment on above: Performed By: #### C MP, BNP, LIPID ####[facility] Vqsbbbyrib7625 [place] [address]Dr. Garima Pulliam Calcium [Mass/Vol] 9.2 mg/dL Normal 8.5-10.[address] [facility] Comment on above: Performed By: #### C MP, BNP, LIPID ####[facility] Wtmavpwomv0651 [place] [address]Dr. Garima Pulliam Chloride [Moles/Vol] 106 mmol/L Normal 98-107 [facility] Comment on above: Performed By: #### C MP, BNP, LIPID ####[facility] Qaaxupcsqj8298 [place] [address]Dr. Garima Pulliam CO2 [Moles/Vol] 32.3 mmol/L Critically high 21.0-32.0 [facility] Comment on above: Performed By: #### C MP, BNP, LIPID ####[facility] Xmheukmorp9044 [place] [address]Dr. Garima Pulliam Creatinine [Mass/Vol] 0.70 mg/dL Normal 0.70-1.30 [facility] Comment on above: Performed By: #### C MP, BNP, LIPID ####[facility] Wlciejkhhy6516 [place] [address]Dr. Garima Heraclio EGFR-AF BURUNDIAN >60 Normal >=60 [facility] Comment on above: Performed By: #### C MP, BNP, LIPID ####[facility] Gtasmbxqlm4382 [place] [address]Dr. Garima Pulliam EGFR-NON AF BURUNDIAN >60 Normal >=60 [facility] Comment on above: Performed By: #### C MP, BNP, LIPID ####[facility] Ghynlkmxhx5047 [place] [address]Dr. Garima Pulliam Globulin (S) [Mass/Vol] 2.9 g/dL Normal [facility] Comment on above: Performed By: #### C MP, BNP, LIPID ####[facility] [address]ayddwhplm[address] [place], [place] [address]Dr. Garima Pulliam Glucose [Mass/Vol] 111 mg/dL Critically high 74-106 [facility] Comment on above: Performed By: #### C MP, BNP, LIPID ####[facility] [address]waevefzi[address] [place], [place] [address]Dr. Garima Pulliam Potassium [Moles/Vol] 4.2 mmol/L Normal 3.5-5.1 [facility] Comment on above: Performed By: #### C MP, BNP, LIPID ####[facility] Ayvcihiyxr6932 [place] [address]Dr. Garima Pulliam Protein [Mass/Vol] 6.4 g/dL Normal 6.4-8.2 [facility] Comment on above: Performed By: #### C MP, BNP, LIPID ####[facility] Znuwgpdmnq[address] [place], [place] [address]Dr. Garima Pulliam Sodium [Moles/Vol] 144 mmol/L Normal 136-[address] [facility] Comment on above: Performed By: #### C MP, BNP, LIPID ####[facility] Pbzhujmzji60[address] [place], [place] [address]Dr. Garima Pulliam Urea nitrogen [Mass/Vol] 7.0 mg/dL Normal 7.0-18.0 [facility] Comment on above: Performed By: #### C MP, BNP, LIPID ####[facility] [address]fqatweykq04[address] [place], [place] [address]Dr. Garima Pulliam Urea nitrogen/Creatinine [Mass ratio] 10.0 mg/mg Normal [facility] Comment on above: Performed By: #### C MP, BNP, LIPID ####[facility] Nmphgvsbrl46[address] [place], [place] [address]Dr. Garima Pulliam BNPon 03-22-2023 Natriuretic peptide B (Bld) [Mass/Vol] 103.0 pg/mL Normal <=900.0 [facility] Comment on above: Performed By: #### B PAGE TECHNICIAN, BMP ####[facility] [address]vwy34[address] [place], [place] [address]Dr. Garima Pulliam CBC AUTO DIFFon 03-22-2023 BASO # 0.0 103/ul Normal 0.0-0.1 [facility] Comment on above: Performed By: #### C BC ####[facility] Wokbafijsx3844[address] [place], [place] [address]Dr. Garima Pulliam Basophils/100 WBC (Bld) 0.3 % Normal 0.2-2.0 [facility] Comment on above: Performed By: #### C BC ####[facility] Gjmplrnfze7[address] [place], [place] [address]Dr. Garima Pulliam EO # 0.2 103/ul Normal 0.0-0.7 [facility] Comment on above: Performed By: #### C BC ####[facility] Wmgqtpgrgd7375[address] [place], [place] [address]Dr. Garima Pulliam Eosinophils/100 WBC (Bld) 2.2 % Normal 0.9-7.0 [facility] Comment on above: Performed By: #### C BC ####[facility] Urpdusmilq6650[address] [place], [place] [address]Dr. Garima Pulliam Erythrocyte distribution width (RBC) [Ratio] 13.2 % Normal 11.0-15.0 [facility] Comment on above: Performed By: #### C BC ####[facility] Qtspklvvyo1622 [place] [address]Dr. Garima Pulliam Hematocrit (Bld) [Volume fraction] 43.4 % Normal 42.0-54.0 [facility] Comment on above: Performed By: #### C BC ####[facility] Axyflrtyjn1803 [place] [address]Dr. Garima Heraclio Hemoglobin (Bld) [Mass/Vol] 14.3 g/dL Normal 14.0-18.0 [facility] Comment on above: Performed By: #### C BC ####[facility] Vltmawwpzw637[address] [place], [place] [address]Dr. Chapisrenu Pulliam IG # 0.02 10e3/ul Normal 0.00-0.03 [facility] Comment on above: Performed By: #### C BC ####[facility] Jikcjgkvzm727[address] [place], [place] [address]Dr. Garima Pulliam IG % 0.3 % Normal 0.0-0.5 [facility] Comment on above: Performed By: #### C BC ####[facility] Njeboqzohf[address] [place], [place] [address]Dr. Chapisrenu Pulliam LYMPH # 2.0 103/ul Normal 1.2-3.8 [facility] Comment on above: Performed By: #### C BC ####[facility] Xiauigsnjm9344[address] [place], [place] [address]Dr. Garima Pulliam Lymphocytes/100 WBC (Bld) 24.8 % Normal 20.5-60.0 [facility] Comment on above: Performed By: #### C BC ####[facility] Kuzaatnnyr05[address] [place], [place] [address]Dr. Garima Pulliam MANUAL DIFF REQ NO Normal [facility] Comment on above: Performed By: #### C BC ####[facility] Bujwecnmkh8408[address] [place], [place] [address]Dr. Garima Pulliam MCH (RBC) [Entitic mass] 30.0 pg Normal 25.9-34.0 [facility] Comment on above: Performed By: #### C BC ####[facility] Iwafphjbaw64[address] [place] [phone]. Garima Heraclio MCHC (RBC) [Mass/Vol] 32.9 g/dL Normal 29.9-35.2 [facility] Comment on above: Performed By: #### C BC ####[facility] Lyxrxfcnhj1170 [place] [phone]. Garima Pulliam MCV (RBC) [Entitic vol] 91.0 fL Normal 80.0-94.0 [facility] Comment on above: Performed By: #### C BC ####[facility] Ldnhcseibj0[address] [place], [place] [address]Dr. Garima Pulliam MONO # 0.8 103/ul Normal 0.3-0.8 [facility] Comment on above: Performed By: #### C BC ####[facility] Xqhsadvtfe17[address] [place], [place] [address]Dr. Garima Pulliam Monocytes/100 WBC (Bld) 9.7 % Normal 1.7-12.0 [facility] Comment on above: Performed By: #### C BC ####[facility] Fidmrprmal1839[address] [place], [place] [address]Dr. Garima Pulliam NEUT # 4.9 103/ul Normal 1.4-6.5 [facility] Comment on above: Performed By: #### C BC ####[facility] Ailpbfwwum927[address] [place], [place] [address]Dr. Garima Pulliam Neutrophils/100 WBC (Bld) 62.7 % Normal 43.0-75.0 [facility] Comment on above: Performed By: #### C BC ####[facility] [address]hbduoex[address] [place], [place] [address]Dr. Garima Pulliam Platelet mean volume (Bld) [Entitic vol] 8.8 fL Critically low 9.5-13.5 [facility] Comment on above: Performed By: #### C BC ####[facility] Awzmifeqsy860[address] [place], [place] [address]Dr. Garima Pulliam PLT 198 103/ul Normal 150-450 [facility] Comment on above: Performed By: #### C BC ####[facility] Jcedcshfot5616 [place] [phone]. Chapisrenu Pulliam RBC 4.77 106/ul Normal 4.70-6.10 [facility] Comment on above: Performed By: #### C BC ####[facility] Cfmbjhfzbe3895 [place] [phone]. Garima Pulliam WBC 7.9 103/ul Normal 4.0-11.0 [facility] Comment on above: Performed By: #### C BC ####[facility] Lqejtjbqxh1621 [place] [phone]. Garima Pulliam D-DIMERon 03-22-2023 D-DIMER 0.85 mg/L FEU Critically high <=0.59 [facility] Comment on above: Performed By: #### D DIM ####[facility] Xeukmjgqcl4185 [place] [address]Dr. Garima Pulliam D-DIMER COMMENTS SEE BELOW Normal [facility] Comment on above: Result Comment: Incr eases [...] generalized hospitalization. Performed By: #### D DIM ####[facility] Dnhvxtcovy6897 [place] [address]Dr. Garima Pulliam PROF CHEM 8 (BAS METB)on Anion gap [Moles/Vol] 6.9 mmol/L Normal [facility] Comment on above: Performed By: #### B PAGE TECHNICIAN, BMP ####[facility] Hdecjuyqyj7567 [place] [address]Dr. Garima Pulliam Calcium [Mass/Vol] 8.9 mg/dL Normal 8.5-10.1 [facility] Comment on above: Performed By: #### B PAGE TECHNICIAN, BMP ####[facility] Utfmvmeoch4613 [place] [phone]. Garima Pulliam Chloride [Moles/Vol] 101 mmol/L Normal 98-107 [facility] Comment on above: Performed By: #### B PAGE TECHNICIAN, BMP ####[facility] Wfamvulvmv1882 [place] [address]Dr. Garima Pulliam CO2 [Moles/Vol] 30.7 mmol/L Normal 21.0-32.0 [facility] Comment on above: Performed By: #### B PAGE TECHNICIAN, BMP ####[facility] [address]idrpzpr[address] [place], [place] [address]Dr. Garima Pulliam Creatinine [Mass/Vol] 0.82 mg/dL Normal 0.70-1.30 [facility] Comment on above: Performed By: #### B PAGE TECHNICIAN, BMP ####[facility] [address]vwsv04[address] [place], [place] [address]Dr. Garima Pulliam EGFR-AF [place]DI[place] >60 Normal >=60 [facility] Comment on above: Performed By: #### B PAGE TECHNICIAN, BMP ####[facility] Esidswyqei6[address] [place], [place] [address]Dr. Garima Pulliam EGFR-NON AF [place]DIAN >60 Normal >=60 [facility] Comment on above: Performed By: #### B PAGE TECHNICIAN, BMP ####[facility] Bzrejfsiwj[address] [place], [place] [address]Dr. Garima Pulliam Glucose [Mass/Vol] 339 mg/dL Critically high 74-106 [facility] Comment on above: Performed By: #### B PAGE TECHNICIAN, BMP ####[facility] Rtbfgvlqgb9820[address] [place], [place] [address]Dr. Garima Pulliam Potassium [Moles/Vol] 3.6 mmol/L Normal 3.5-5.1 [facility] Comment on above: Performed By: #### B PAGE TECHNICIAN, BMP ####[facility] [address]qrqyoiij036[address] [place], [place] [address]Dr. Garima Pulliam Sodium [Moles/Vol] 135 mmol/L Critically low 136-145 [facility] Comment on above: Performed By: #### B PAGE TECHNICIAN, BMP ####[facility] Mugskmjouw3160 [place] [phone]. Garima Pulliam Urea nitrogen [Mass/Vol] 11.0 mg/dL Normal 7.0-18.0 [facility] Comment on above: Performed By: #### B PAGE TECHNICIAN, BMP ####[facility] Wtevcbmqjg[address] [place], [place] [address]Dr. Garima Pulliam Urea nitrogen/Creatinine [Mass ratio] 13.4 mg/mg Normal [facility] Comment on above: Performed By: #### B PAGE TECHNICIAN, BMP ####[facility] Mexcjuhfmj458[address] [place], [place] [address]Dr. Garima Pulliam US VERONICA DOP LEG BILon 023 US VERONICA DOP LEG BENOIT Normal [facility] BNPon 03-18-2023 Natriuretic peptide B (Bld) [Mass/Vol] 226.0 pg/mL Normal <=900.0 [facility] Comment on above: Performed By: #### B PAGE TECHNICIAN, BMP ####[facility] Ifywwsfwbu25[address] [place], [place] [address]Dr. Garima Pulliam CBC AUTO DIFFon 03-18-2023 BASO # 0.0 103/ul Normal 0.0-0.1 [facility] Comment on above: Performed By: #### C BC ####[facility] Lkndqjiiyt382[address] [place], [place] [address]Dr. Garima Heraclio Basophils/100 WBC (Bld) 0.2 % Normal 0.2-2.0 [facility] Comment on above: Performed By: #### C BC ####[facility] Xlbmyesosb02[address] [place], [place] [address]Dr. Garima Pulliam EO # 0.3 103/ul Normal 0.0-0.7 [facility] Comment on above: Performed By: #### C BC ####[facility] Zfscglmckl0[address] [place], [place] [address]Dr. Garima Heraclio Eosinophils/100 WBC (Bld) 2.5 % Normal 0.9-7.0 [facility] Comment on above: Performed By: #### C BC ####[facility] Sycuaejzrf[address] [address] [place], [place] [address]Dr. Garima Pulliam Erythrocyte distribution width (RBC) [Ratio] 13.2 % Normal 11.0-15.0 The [facility] Comment on above: Performed By: #### C BC ####[facility] [address] [place] [address]Dr. Garima Pulliam Hematocrit (Bld) [Volume fraction] 45.8 % Normal 42.0-54.0 The [facility] Comment on above: Performed By: #### C BC ####[facility] Mydmeiwyjl[address] [place] [address]Dr. Garima Pulliam Hemoglobin (Bld) [Mass/Vol] 15.3 g/dL Normal 14.0-18.0 The [facility] Comment on above: Performed By: #### C BC ####[facility] [address] [place], [place] [address]Dr. Chapisrenu Pulliam IG # 0.02 10e3/ul Normal 0.00-0.03 The [facility] Comment on above: Performed By: #### C BC ####[facility] [address]emqsb[address] [place], [place] [address]Dr. Garima Pulliam IG % 0.2 % Normal 0.0-0.5 The [facility] Comment on above: Performed By: #### C BC ####[facility] E[address]cywxyzd22[address] [place], [place] [address]Dr. Garima Heraclio LYMPH # 1.8 103/ul Normal 1.2-3.8 The [facility] Comment on above: Performed By: #### C BC ####[facility] [address]bxpzm[address] [place], [place] [address]Dr. Garima Heraclio Lymphocytes/100 WBC (Bld) 18.3 % Critically low 20.5-60.0 The [facility] Comment on above: Performed By: #### C BC ####[facility] [address]ectgdjvzv01[address] [place], [place] [address]Dr. Chapisrenu Pulliam MANUAL DIFF REQ NO Normal [facility] Comment on above: Performed By: #### C BC ####[facility] Eqpjwkojrj66[address] [place], [place] [address]Dr. Yirenu Pulliam MCH (RBC) [Entitic mass] 30.5 pg Normal 25.9-34.0 The [facility] Comment on above: Performed By: #### C BC ####[facility] Vh[address]rv[address]dxl[address] [place] [id number]. Garima Pulliam MCHC (RBC) [Mass/Vol] 33.4 g/dL Normal 29.9-35.2 The [facility] Comment on above: Performed By: #### C BC ####[facility] [address] [place] [id number]. Garima Pulliam MCV (RBC) [Entitic vol] 91.2 fL Normal 80.0-94.0 The [facility] Comment on above: Performed By: #### C BC ####[facility] Dnekwxbxot64[address] [place], [place] [address]DrAdalberto Garima Heraclio MONO # 0.8 103/ul Normal 0.3-0.8 The [facility] Comment on above: Performed By: #### C BC ####[facility] Vuoyvorbyn3669[address] [place], [place] [address]Dr. Chapisrenu Pulliam Monocytes/100 WBC (Bld) 7.6 % Normal 1.7-12.0 The [facility] Comment on above: Performed By: #### C BC ####[facility] [address]qvlluf5[address] [place], [place] [address]Dr. Garima Pulliam NEUT # 7.0 103/ul Critically high 1.4-6.5 [facility] Comment on above: Performed By: #### C BC ####[facility] Nkdsenzylx0939[address] [place], [place] [address]DrAdalberto Chapisrenu Pulliam Neutrophils/100 WBC (Bld) 71.2 % Normal 43.0-75.0 The [facility] Comment on above: Performed By: #### C BC ####[facility] Iblgzhyfmk107[address] [place], [place] [address]Dr. Garima Pulliam Platelet mean volume (Bld) [Entitic vol] 8.9 fL Critically low 9.5-13.5 The [facility] Comment on above: Performed By: #### C BC ####[facility] Olxfadavkj[address] [place] [id number]. Garima Pulliam PLT 217 103/ul Normal 150-450 [facility] Comment on above: Performed By: #### C BC ####[facility] Wsvyucmxib48[address] [place] [address]Dr. Garima Pulliam RBC 5.02 106/ul Normal 4.70-6.10 [facility] Comment on above: Performed By: #### C BC ####[facility] Ujauxkurlo4936[address] [place], [place] [address]Dr. Garima Pulliam WBC 9.8 103/ul Normal 4.0-11.0 [facility] Comment on above: Performed By: #### C BC ####[facility] Aedpbvguaw183[address] [place], [place] [address]Dr. Garima Pulliam CRPon 03-18-2023 CRP 0.1 mg/dL Normal <=1.0 [facility] Comment on above: Performed By: #### C RP ####[facility] U[address]gweanrm23[address] [place], [place] [address]Dr. Garima Heraclio PROF CHEM 8 (BAS METB)on Anion gap [Moles/Vol] 10.4 mmol/L Normal [facility] Comment on above: Performed By: #### B PAGE TECHNICIAN, BMP ####[facility] Eqyczwzhra320[address] [place], [place] [address]Dr. Garima Heraclio Calcium [Mass/Vol] 8.8 mg/dL Normal 8.5-10.[address] [facility] Comment on above: Performed By: #### B PAGE TECHNICIAN, BMP ####[facility] [address] [place] [address]Dr. Garima Heraclio Chloride [Moles/Vol] 97 mmol/L Critically low 98-107 [facility] Comment on above: Performed By: #### B PAGE TECHNICIAN, BMP ####[facility] Xwrqgvmack0586 [place] [address]Dr. Garima Pulliam CO2 [Moles/Vol] 31.2 mmol/L Normal 21.0-32.0 [facility] Comment on above: Performed By: #### B PAGE TECHNICIAN, BMP ####[facility] Getkshdubi4[address] [place] [phone]. Garima Pulliam Creatinine [Mass/Vol] 0.91 mg/dL Normal 0.70-1.30 [facility] Comment on above: Performed By: #### B PAGE TECHNICIAN, BMP ####[facility] Dqhwyzkowf75[address] [place] [phone]. Garima Pulliam EGFR-AF BURUNDIAN >60 Normal >=60 [facility] Comment on above: Performed By: #### B PAGE TECHNICIAN, BMP ####[facility] Dsnckgtzcu026[address] [place] [phone]. Garima Pulliam EGFR-NON AF BURUNDIAN >60 Normal >=60 [facility] Comment on above: Performed By: #### B PAGE TECHNICIAN, BMP ####[facility] Jhrzjauqky[address] [place], [place] [id number]. Garima Pulliam Glucose [Mass/Vol] 315 mg/dL Critically high 74-106 [facility] Comment on above: Performed By: #### B PAGE TECHNICIAN, BMP ####[facility] K[address]xugqqfj[address] [place], [place] [id number]. Garima Pulliam Potassium [Moles/Vol] 3.6 mmol/L Normal 3.5-5.1 [facility] Comment on above: Performed By: #### B PAGE TECHNICIAN, BMP ####[facility] Zcjbjxrwbm[address] [place], [place] [id number]. Garima Pulliam Sodium [Moles/Vol] 135 mmol/L Critically low 136-145 [facility] Comment on above: Performed By: #### B PAGE TECHNICIAN, BMP ####[facility] [address]yugbrtb36[address] [place] [phone]. Garima Pulliam Urea nitrogen [Mass/Vol] 7.0 mg/dL Normal 7.0-18.0 [facility] Comment on above: Performed By: #### B PAGE TECHNICIAN, BMP ####[facility] Vybmforhqe[address] [place], [place] [id number]. Garima Pulliam Urea nitrogen/Creatinine [Mass ratio] 7.7 mg/mg Normal [facility] Comment on above: Performed By: #### B PAGE TECHNICIAN, BMP ####[facility] Wcgobysncy0214[address] [place], [place] [address]Dr. Garima Pulliam SED RATE WESTERGRENon 2022 SED RATE 8 mm/hr Normal <=20 The [facility] Comment on above: Performed By: #### S EDR ####[facility] [address]vmxjqcukz[address] [place], [place] [address]Dr. Garima Pulliam BNPon 03-16-2023 Natriuretic peptide B (Bld) [Mass/Vol] 241.0 pg/mL Normal <=900.0 The [facility] Comment on above: Performed By: #### B PAGE TECHNICIAN, BMP, HSTROPN ####[facility] Rbmfadzwso1169[address] [place], [place] [address]Dr. Garima Heraclio CBC AUTO DIFFon 03-16-2023 BASO # 0.0 103/ul Normal 0.0-0.1 [facility] Comment on above: Performed By: #### C BC ####[facility] Azcxaoptao3237[address] [place], [place] [address]Dr. Garima Heraclio Basophils/100 WBC (Bld) 0.2 % Normal 0.2-2.0 The [facility] Comment on above: Performed By: #### C BC ####[facility] Neliqhdyio1238[address] [place], [place] [address]Dr. Chapisrenu Heraclio EO # 0.2 103/ul Normal 0.0-0.7 The [facility] Comment on above: Performed By: #### C BC ####[facility] Sxynvhrnyo6436[address] [place], [place] [address]Dr. Chapisrenu Pulliam Eosinophils/100 WBC (Bld) 2.7 % Normal 0.9-7.0 The [facility] Comment on above: Performed By: #### C BC ####[facility] Qmnqsupfgx5716[address] [place], [place] [address]Dr. Garima Heraclio Erythrocyte distribution width (RBC) [Ratio] 13.1 % Normal 11.0-15.0 The [facility] Comment on above: Performed By: #### C BC ####[facility] O[address]csejiwh15[address] [place], [place] [address]Dr. Garima Pulliam Hematocrit (Bld) [Volume fraction] 41.8 % Critically low 42.0-54.0 [facility] Comment on above: Performed By: #### C BC ####[facility] Ufmnemvxhn7[address] [place] [address]DrAdalberto Pulliam Hemoglobin (Bld) [Mass/Vol] 14.0 g/dL Normal 14.0-18.0 [facility] Comment on above: Performed By: #### C BC ####[facility] Uqmxugcusn6574[address] [place], [place] [address]DrAdalberto Pulliam IG # 0.03 10e3/ul Normal 0.00-0.03 [facility] Comment on above: Performed By: #### C BC ####[facility] Zegttidvyt5348[address] [place], [place] [address]DrAdalberto Pulliam IG % 0.3 % Normal 0.0-0.5 [facility] Comment on above: Performed By: #### C BC ####[facility] Fleaspduff2[address] [place], [place] [address]DrAdalberto Pulliam LYMPH # 2.1 103/ul Normal 1.2-3.8 The [facility] Comment on above: Performed By: #### C BC ####[facility] Nqtavkfmbv9[address] [place], [place] [address]DrAdalberto Pulliam Lymphocytes/100 WBC (Bld) 24.2 % Normal 20.5-60.0 [facility] Comment on above: Performed By: #### C BC ####[facility] Xrtjfceynz5[address] [place], [place] [address]DrAdalberto Pulliam MANUAL DIFF REQ NO Normal [facility] Comment on above: Performed By: #### C BC ####[facility] Ezgaokybfz5579[address] [place], [place] [address]DrAdalberto Pulliam MCH (RBC) [Entitic mass] 30.2 pg Normal 25.9-34.0 The [facility] Comment on above: Performed By: #### C BC ####[facility] Omjmptokdl6779[address] [place], [place] [address]DrAdalberto Pulliam MCHC (RBC) [Mass/Vol] 33.5 g/dL Normal 29.9-35.2 [facility] Comment on above: Performed By: #### C BC ####[facility] Lmojxwpjow1118[address] [place], [place] [address]DrAdalberto Pulliam MCV (RBC) [Entitic vol] 90.1 fL Normal 80.0-94.0 The [facility] Comment on above: Performed By: #### C BC ####[facility] Smfvjkcpus6769[address] [place], [place] [address]DrAdalberto Pulliam MONO # 0.6 103/ul Normal 0.3-0.8 The [facility] Comment on above: Performed By: #### C BC ####[facility] Xtaokcmcnv8819[address] [place], [place] [address]DrAdalberto Pulliam Monocytes/100 WBC (Bld) 7.4 % Normal 1.7-12.0 The [facility] Comment on above: Performed By: #### C BC ####[facility] Snivxsasuf8836[address] [place], [place] [address]DrAdalberto Pulliam NEUT # 5.6 103/ul Normal 1.4-6.5 The [facility] Comment on above: Performed By: #### C BC ####[facility] Ipzemrtzlc8[address] [place], [place] [address]DrAdalberto Pulliam Neutrophils/100 WBC (Bld) 65.2 % Normal 43.0-75.0 The [facility] Comment on above: Performed By: #### C BC ####[facility] Cwuaggvuzu5555[address] [place], [place] [address]DrAdalberto Pulliam Platelet mean volume (Bld) [Entitic vol] 8.7 fL Critically low 9.5-13.5 The [facility] Comment on above: Performed By: #### C BC ####[facility] Ickectcmic50[address] [place], [place] [address]DrAdalberto Pulliam PLT 195 103/ul Normal 150-450 [facility] Comment on above: Performed By: #### C BC ####[facility] Fbrwztweji7624[address] [place], [place] [address]DrAdalberto Pulliam RBC 4.64 106/ul Critically low 4.70-6.10 [facility] Comment on above: Performed By: #### C BC ####[facility] Lpqfbwcvjb9949[address] [place], [place] [address]Dr. Garima Pulliam WBC 8.6 103/ul Normal 4.0-11.0 [facility] Comment on above: Performed By: #### C BC ####[facility] Uhwnsrwyuc4359[address] [place], [place] [address]Dr. Garima Pulliam PROF CHEM 8 (BAS METB)on Anion gap [Moles/Vol] 6.7 mmol/L Normal [facility] Comment on above: Performed By: #### B PAGE TECHNICIAN, BMP, HSTROPN ####[facility] Jpixjxqmzx9606[address] [place], [place] [address]Dr. Garima Pulliam Calcium [Mass/Vol] 8.8 mg/dL Normal 8.5-10.[address] [facility] Comment on above: Performed By: #### B PAGE TECHNICIAN, BMP, HSTROPN ####[facility] Rqqqdtztvi859[address] [place], [place] [address]Dr. Garima Pulliam Chloride [Moles/Vol] 106 mmol/L Normal 98-107 [facility] Comment on above: Performed By: #### B PAGE TECHNICIAN, BMP, HSTROPN ####[facility] Lqyjqkdgjp[address] [place], [place] [address]Dr. Garima Pulliam CO2 [Moles/Vol] 31.4 mmol/L Normal 21.0-32.0 [facility] Comment on above: Performed By: #### B PAGE TECHNICIAN, BMP, HSTROPN ####[facility] Mawbmarqah8[address] [place], [place] [address]Dr. Garima Pulliam Creatinine [Mass/Vol] 0.75 mg/dL Normal 0.70-1.30 The [facility] Comment on above: Performed By: #### B PAGE TECHNICIAN, BMP, HSTROPN ####[facility] Tjentzynga7[address] [place], [place] [address]Dr. Garima Pulliam EGFR-AF BURUNDIAN >60 Normal >=60 [facility] Comment on above: Performed By: #### B PAGE TECHNICIAN, BMP, HSTROPN ####[facility] Qaxnmsyukg[address] [place] [address]Dr. Garima Pulliam EGFR-NON AF [place]UR[place]DIAN >60 Normal >=60 [facility] Comment on above: Performed By: #### B PAGE TECHNICIAN, BMP, HSTROPN ####[facility] Vldosquult7201 [place] [address]Dr. Garima Pulliam Glucose [Mass/Vol] 161 mg/dL Critically high 74-106 T [facility] Comment on above: Performed By: #### B PAGE TECHNICIAN, BMP, HSTROPN ####[facility] Vtmfnknjxf5186 [place] [address]Dr. Garima Pulliam Potassium [Moles/Vol] 4.1 mmol/L Normal 3.5-5.1 [facility] Comment on above: Performed By: #### B PAGE TECHNICIAN, BMP, HSTROPN ####[facility] Sspfcxmpwc4[address] [place] [address]Dr. Garima Pulliam Sodium [Moles/Vol] 140 mmol/L Normal 136-[address] [facility] Comment on above: Performed By: #### B PAGE TECHNICIAN, BMP, HSTROPN ####[facility] Wjenieszvr0591 [place] [address]Dr. Garima Pulliam Urea nitrogen [Mass/Vol] 7.0 mg/dL Normal 7.0-18.0 [facility] Comment on above: Performed By: #### B PAGE TECHNICIAN, BMP, HSTROPN ####[facility] Wqyqentegj9396 [place] [address]Dr. Garima Pulliam Urea nitrogen/Creatinine [Mass ratio] 9.3 mg/mg Normal [facility] Comment on above: Performed By: #### B PAGE TECHNICIAN, BMP, HSTROPN ####[facility] Z[address]jhqgdxw[address] [place], [place] [address]Dr. Garima Pulliam TROPONIN, HIGH SENSITIVITYon 03-16-2023 HSTROP 9.7 pg/mL Normal 4.0-76.1 [facility] Comment on above: Result Comment: CUT- OFF POINTS HAVE BEEN ESTABLISHED BASED ON THE FOURTH UNIVERSAL DEFINITIONS OF MYOCARDIALINFARCTION. THE UPPER REFERENCE LIMIT (URL) OF TROPONIN, DEFINED THE 99TH PERCENTILE OFcTnI DISTRIBUTION IN A REFERENCE POPULATION, HAS BEEN CONFIRMED THE DECISION THRESHOLDFOR MD DIAGNOSIS. Performed By: #### B PAGE TECHNICIAN, BMP, HSTROPN ####[facility] Hqgayzvtnf32[address] [place] [address]Dr. Garima Pulliam XR CHEST 1 Von 03-16-2023 XR CHEST 1 V Normal [facility] BNPon 03-06-2023 Natriuretic peptide B (Bld) [Mass/Vol] 111.0 pg/mL Normal <=900.0 The [facility] Comment on above: Performed By: #### C MP, BNP, CK ####[facility] R[address]vcawawnu74[address] [place], [place] [address]Dr. Garima Heraclio CBC AUTO DIFFon 03-06-2023 BASO # 0.0 103/ul Normal 0.0-0.1 [facility] Comment on above: Performed By: #### C BC ####[facility] Uvmpzufnet[address] [place], [place] [address]Dr. Chapisrenu Pulliam Basophils/100 WBC (Bld) 0.2 % Normal 0.2-2.0 [facility] Comment on above: Performed By: #### C BC ####[facility] Kmfopssydc[address] [place], [place] [address]Dr. Chapisrenu Pulliam EO # 0.3 103/ul Normal 0.0-0.7 [facility] Comment on above: Performed By: #### C BC ####[facility] F[address]uyipnt8878[address] [place], [place] [address]Dr. Chapisrenu Pulliam Eosinophils/100 WBC (Bld) 3.5 % Normal 0.9-7.0 [facility] Comment on above: Performed By: #### C BC ####[facility] Lgnanrexpt[address]47[address] [place], [place] [address]Dr. Garima Heraclio Erythrocyte distribution width (RBC) [Ratio] 13.3 % Normal 11.0-15.0 The [facility] Comment on above: Performed By: #### C BC ####[facility] Zhlbdorxsc0494[address] [place], [place] [address]Dr. Chapisrenu Pulliam Hematocrit (Bld) [Volume fraction] 43.7 % Normal 42.0-54.0 The [facility] Comment on above: Performed By: #### C BC ####[facility] Eqncdubcje5[address] [place] [address]Dr. Garima Pulliam Hemoglobin (Bld) [Mass/Vol] 14.7 g/dL Normal 14.0-18.0 The [facility] Comment on above: Performed By: #### C BC ####[facility] Gkbcsovhqf38[address] [place] [address]Dr. Garima Pulliam IG # 0.03 10e3/ul Normal 0.00-0.03 [facility] Comment on above: Performed By: #### C BC ####[facility] Nymmxnifrn1587 [place] [address]Dr. Garima Pulliam IG % 0.4 % Normal 0.0-0.5 The [facility] Comment on above: Performed By: #### C BC ####[facility] Munbkjmtla[address] [place], [place] [address]Dr. Garima Pulliam LYMPH # 2.0 103/ul Normal 1.2-3.8 The [facility] Comment on above: Performed By: #### C BC ####[facility] Pyuanlckew[address] [place], [place] [address]Dr. Garima Pulliam Lymphocytes/100 WBC (Bld) 23.7 % Normal 20.5-60.0 The [facility] Comment on above: Performed By: #### C BC ####[facility] Wnsehtyaeq919[address] [place], [place] [address]Dr. Garima Pulliam MANUAL DIFF REQ NO Normal [facility] Comment on above: Performed By: #### C BC ####[facility] [address]jhfcsqj40[address] [place], [place] [address]Dr. Garima Pulliam MCH (RBC) [Entitic mass] 30.1 pg Normal 25.9-34.0 The [facility] Comment on above: Performed By: #### C BC ####[facility] [address]ppnoknw1638[address] [place], [place] [address]Dr. Garima Pulliam MCHC (RBC) [Mass/Vol] 33.6 g/dL Normal 29.9-35.2 The [facility] Comment on above: Performed By: #### C BC ####[facility] [address]orkikq[address] [place] [address]Dr. Garima Pulliam MCV (RBC) [Entitic vol] 89.4 fL Normal 80.0-94.0 [facility] Comment on above: Performed By: #### C BC ####[facility] [facility] Porivtkifs[address] [place], [place] [address]Dr. Garima Pulliam MONO # 0.8 103/ul Normal 0.3-0.8 The [facility] Comment on above: Performed By: #### C BC ####[facility] Halnuxywme9[address] [place], [place] [address]Dr. Garima Pulliam Monocytes/100 WBC (Bld) 9.0 % Normal 1.7-12.0 The [facility] Comment on above: Performed By: #### C BC ####[facility] Haljtzontm[address] [place], [place] [address]Dr. Garima Pulliam NEUT # 5.4 103/ul Normal 1.4-6.5 The [facility] Comment on above: Performed By: #### C BC ####[facility] Glqbribunc538[address] [place], [place] [address]Dr. Garima Pulliam Neutrophils/100 WBC (Bld) 63.2 % Normal 43.0-75.0 The [facility] Comment on above: Performed By: #### C BC ####[facility] Dtsgsowueu[address] [place], [place] [address]Dr. Garima Pulliam Platelet mean volume (Bld) [Entitic vol] 9.0 fL Critically low 9.5-13.5 The [facility] Comment on above: Performed By: #### C BC ####[facility] Jnqojhvipx196[address] [place], [place] [address]Dr. Garima Pulliam PLT 218 103/ul Normal 150-450 The [facility] Comment on above: Performed By: #### C BC ####[facility] Lmscnundgs809[address] [place], [place] [address]Dr. Garima Pulliam RBC 4.89 106/ul Normal 4.70-6.10 [facility] Comment on above: Performed By: #### C BC ####[facility] Czqrukcyep[address] [place] [address]Dr. Garima Pulliam WBC 8.5 103/ul Normal 4.0-11.0 [facility] Comment on above: Performed By: #### C BC ####[facility] Puinnxmwmi9635 [place] [address]Dr. Garima Heraclio CPKon 03-06-2023 CK [Catalytic activity/Vol] 191 U/L Normal 39-308 [facility] Comment on above: Performed By: #### C MP, BNP, CK ####[facility] Wrmbxwtkft3[address] [place], [place] [address]Dr. Garima Pulliam PROF 14(COMP METB)on 023 Albumin [Mass/Vol] 3.6 g/dL Normal 3.4-5.[address] [facility] Comment on above: Performed By: #### C MP, BNP, CK ####[facility] Mkcpctxphs7653 [place] [address]Dr. Garima Pulliam Albumin/Globulin [Mass ratio] 1.2 {ratio} Normal [facility] Comment on above: Performed By: #### C MP, BNP, CK ####[facility] [address]qhrkervwl[address] [place], [place] [address]Dr. Garima Pulliam ALP [Catalytic activity/Vol] 91 U/L Normal 46-116 [facility] Comment on above: Performed By: #### C MP, BNP, CK ####[facility] Bbeuazdrik37[address] [place] [address]Dr. Garima Pulliam ALT [Catalytic activity/Vol] 33 U/L Normal 16-63 [facility] Comment on above: Performed By: #### C MP, BNP, CK ####[facility] Hvwmosjdah13[address] [place], [place] [address]Dr. Garima Pulliam Anion gap [Moles/Vol] 10.3 mmol/L Normal [facility] Comment on above: Performed By: #### C MP, BNP, CK ####[facility] Zgssjflpgp3462 [place] [address]Dr. Garima Pulliam AST [Catalytic activity/Vol] 17 U/L Normal 15-37 [facility] Comment on above: Performed By: #### C MP, BNP, CK ####[facility] Tvfxzpwddv9828 [place] [address]Dr. Garima Pulliam Bilirubin [Mass/Vol] 0.4 mg/dL Normal 0.2-1.0 [facility] Comment on above: Performed By: #### C MP, BNP, CK ####[facility] Ipuvyugnka4122 [place] [address]Dr. Garima Pulliam Calcium [Mass/Vol] 9.1 mg/dL Normal 8.5-10.[address] [facility] Comment on above: Performed By: #### C MP, BNP, CK ####[facility] Fypiztnuvf3[address] [place], [place] [address]Dr. Garima Pulliam Chloride [Moles/Vol] 102 mmol/L Normal 98-107 The [facility] Comment on above: Performed By: #### C MP, BNP, CK ####[facility] Nlszllaatd56[address] [place], [place] [address]Dr. Garima Pulliam CO2 [Moles/Vol] 29.7 mmol/L Normal 21.0-32.0 [facility] Comment on above: Performed By: #### C MP, BNP, CK ####[facility] Wfzddymzyd2232[address] [place], [place] [address]Dr. Garima Pulliam Creatinine [Mass/Vol] 0.79 mg/dL Normal 0.70-1.30 [facility] Comment on above: Performed By: #### C MP, BNP, CK ####[facility] Pyxmhelkni15[address] [place] [address]Dr. Garima Pulliam EGFR-AF BURUNDIAN >60 Normal >=60 [facility] Comment on above: Performed By: #### C MP, BNP, CK ####[facility] Zqhujfpomz0970 [place] [address]Dr. Garima Pulliam EGFR-NON AF BURUNDIAN >60 Normal >=60 [facility] Comment on above: Performed By: #### C MP, BNP, CK ####[facility] Pairhdorbr8035 [place] [address]Dr. Garima Pulliam Globulin (S) [Mass/Vol] 3.0 g/dL Normal [facility] Comment on above: Performed By: #### C MP, BNP, CK ####[facility] Zljkboeghr5699 [place] [address]Dr. Garima Pulliam Glucose [Mass/Vol] 202 mg/dL Critically high 74-106 [facility] Comment on above: Performed By: #### C MP, BNP, CK ####[facility] Vbfqtcsetm1535 [place] [address]Dr. Garima Pulliam Potassium [Moles/Vol] 4.0 mmol/L Normal 3.5-5.1 The [facility] Comment on above: Performed By: #### C MP, BNP, CK ####[facility] Axnlpymzyg739[address] [place], [place] [address]Dr. Garima Pulliam Protein [Mass/Vol] 6.6 g/dL Normal 6.4-8.2 [facility] Comment on above: Performed By: #### C MP, BNP, CK ####[facility] Hfexiqvatg50[address] [place], [place] [address]Dr. Garima Pulliam Sodium [Moles/Vol] 138 mmol/L Normal 136-[address] [facility] Comment on above: Performed By: #### C MP, BNP, CK ####[facility] Lbxndkkxmy6810[address] [place], [place] [address]Dr. Garima Pulliam Urea nitrogen [Mass/Vol] 10.0 mg/dL Normal 7.0-18.0 The [facility] Comment on above: Performed By: #### C MP, BNP, CK ####[facility] Simrsynidl964[address] [place], [place] [address]Dr. Garima Pulliam Urea nitrogen/Creatinine [Mass ratio] 12.7 mg/mg Normal [facility] Comment on above: Performed By: #### C MP, BNP, CK ####[facility] Rlzkhlnput6[address] [place], [place] [address]DrAdalberto Pulliam US VERONICA DOP LEG BILon 03-06- 023 US VERONICA DOP LEG BENOIT Normal [facility] CBC AUTO DIFFon 01-13-2023 BASO # 0.0 103/ul Normal 0.0-0.1 [facility] Comment on above: Performed By: #### C BC ####[facility] Nmxodnyrby0155 [place] [address]DrAdalberto Pulliam Basophils/100 WBC (Bld) 0.0 % Critically low 0.2-2.0 [facility] Comment on above: Performed By: #### C BC ####[facility] Whufemaqdd397[address] [place], [place] [address]DrAdalberto Pulliam EO # 0.0 103/ul Normal 0.0-0.7 [facility] Comment on above: Performed By: #### C BC ####[facility] Ngtbvfwkuc4793 [place] [address]DrAdalberto Pulliam Eosinophils/100 WBC (Bld) 0.0 % Critically low 0.9-7.0 [facility] Comment on above: Performed By: #### C BC ####[facility] Thwdducmgh[address] [place], [place] [address]DrAdalberto Pulliam Erythrocyte distribution width (RBC) [Ratio] 13.2 % Normal 11.0-15.0 [facility] Comment on above: Performed By: #### C BC ####[facility] Szpxhlvwks[address] [place], [place] [address]DrAdalberto Pulliam Hematocrit (Bld) [Volume fraction] 46.7 % Normal 42.0-54.0 [facility] Comment on above: Performed By: #### C BC ####[facility] Uhvjtjtpvb6842 [place] [address]DrAdalberto Pulliam Hemoglobin (Bld) [Mass/Vol] 15.6 g/dL Normal 14.0-18.0 [facility] Comment on above: Performed By: #### C BC ####[facility] J[address]cdrlkuh[address] [place], [place] [address]DrAdalberto Pulliam IG # 0.01 10e3/ul Normal 0.00-0.03 [facility] Comment on above: Performed By: #### C BC ####[facility] Yexuycsrha4349 [place] [address]DrAdalberto Chapisrenu Pulliam IG % 0.2 % Normal 0.0-0.5 [facility] Comment on above: Performed By: #### C BC ####[facility] Vwkxlvpuez3112 [place] [phone] Pulliam LYMPH # 0.8 103/ul Critically low 1.2-3.8 [facility] Comment on above: Performed By: #### C BC ####[facility] Owibuhaybo8605 [place] [address]DrAdalberto Pulliam Lymphocytes/100 WBC (Bld) 12.7 % Critically low 20.5-60.0 [facility] Comment on above: Performed By: #### C BC ####[facility] Xmqdszzzqg6488 [place] [address]DrAdalberto Pulliam MANUAL DIFF REQ NO Normal [facility] Comment on above: Performed By: #### C BC ####[facility] Ygarmlhugo8426 [place] [phone] Garima Heraclio MCH (RBC) [Entitic mass] 30.2 pg Normal 25.9-34.0 [facility] Comment on above: Performed By: #### C BC ####[facility] Kpgfeqorjp9462 [place] [phone] Pulliam MCHC (RBC) [Mass/Vol] 33.4 g/dL Normal 29.9-35.2 [facility] Comment on above: Performed By: #### C BC ####[facility] Tsmcziecjj6764 [place] [phone] Pulliam MCV (RBC) [Entitic vol] 90.3 fL Normal 80.0-94.0 [facility] Comment on above: Performed By: #### C BC ####[facility] Eqtmbknvou8448 [place] [phone] Pulliam MONO # 0.1 103/ul Critically low 0.3-0.8 [facility] Comment on above: Performed By: #### C BC ####[facility] Dgbjxzalyg6656 [place] [address]Dr. Garima Pulliam Monocytes/100 WBC (Bld) 0.9 % Critically low 1.7-12.0 [facility] Comment on above: Performed By: #### C BC ####[facility] Dcfkhwhizh3144 [place] [phone]. Garima Pulliam NEUT # 5.6 103/ul Normal 1.4-6.5 [facility] Comment on above: Performed By: #### C BC ####[facility] Psxglqgmgn0617 [place] [address]Dr. Garima Pulliam Neutrophils/100 WBC (Bld) 86.2 % Critically high 43.0-75.0 [facility] Comment on above: Performed By: #### C BC ####[facility] Vvrcsxzbrk6434 [place] [address]Dr. Garima Pulliam Platelet mean volume (Bld) [Entitic vol] 9.1 fL Critically low 9.5-13.5 [facility] Comment on above: Performed By: #### C BC ####[facility] [address]azhuxumv[address] [place], [place] [address]Dr. Garima Pullaim PLT 169 103/ul Normal 150-450 [facility] Comment on above: Performed By: #### C BC ####[facility] Hdhjkfnaum4290 [place] [address]Dr. Garima Pulliam RBC 5.17 106/ul Normal 4.70-6.10 [facility] Comment on above: Performed By: #### C BC ####[facility] Gefgsmxonc1906 [place] [phone]. Garima Pulliam WBC 6.5 103/ul Normal 4.0-11.0 The [facility] Comment on above: Performed By: #### C BC ####[facility] Fvxmutfnmm5347 [place] [address]Dr. Garima Pulliam D-DIMERon 01-13-2023 D-DIMER 0.41 mg/L FEU Normal <=0.59 [facility] Comment on above: Performed By: #### D DIM ####[facility] Vzwtowxxcq8525 [place] [address]Dr. Garima Pulliam D-DIMER COMMENTS SEE BELOW Normal [facility] Comment on above: Result Comment: Incr eases [...] generalized hospitalization. Performed By: #### D DIM ####[facility] Hsvexnqjqh616[address] [place], [place] [address]Dr. Garima Pulliam PROF 14(COMP METB)on 023 Albumin [Mass/Vol] 3.4 g/dL Normal 3.4-5.[address] [facility] Comment on above: Performed By: #### C MP ####[facility] Mbvjtseelh985[address] [place], [place] [address]Dr. Garima Pulliam Albumin/Globulin [Mass ratio] 1.3 {ratio} Normal [facility] Comment on above: Performed By: #### C MP ####[facility] Wxbobwidmg744[address] [place], [place] [address]Dr. Garima Pulliam ALP [Catalytic activity/Vol] 83 U/L Normal 46-116 [facility] Comment on above: Performed By: #### C MP ####[facility] Ptwbrzmnke3627 [place] [address]Dr. Garima Pulliam ALT [Catalytic activity/Vol] 25 U/L Normal 16-63 [facility] Comment on above: Performed By: #### C MP ####[facility] Dufivhjxls1303 [place] [address]Dr. Garima Pulliam Anion gap [Moles/Vol] 14.5 mmol/L Normal [facility] Comment on above: Performed By: #### C MP ####[facility] Uqxmsbumyu8913 [place] [phone]. Garima Pulliam AST [Catalytic activity/Vol] 19 U/L Normal 15-37 [facility] Comment on above: Performed By: #### C MP ####[facility] Ywahogjeuc1072 [place] [phone]. Garima Pulliam Bilirubin [Mass/Vol] 0.4 mg/dL Normal 0.2-1.0 [facility] Comment on above: Performed By: #### C MP ####[facility] Bnzxuutstf3142 [place] [phone]. Garima Pulliam Calcium [Mass/Vol] 8.7 mg/dL Normal 8.5-10.[address] [facility] Comment on above: Performed By: #### C MP ####[facility] Tjsqavezxd[address] [place], [place] [address]Dr. Garima Pulliam Chloride [Moles/Vol] 104 mmol/L Normal 98-107 [facility] Comment on above: Performed By: #### C MP ####[facility] Syzizhrnie638[address] [place], [place] [address]Dr. Garima Pulliam CO2 [Moles/Vol] 24.5 mmol/L Normal 21.0-32.0 [facility] Comment on above: Performed By: #### C MP ####[facility] Pwyvtmbafq278[address] [place], [place] [address]Dr. Garima Pulliam Creatinine [Mass/Vol] 0.70 mg/dL Normal 0.70-1.30 The [facility] Comment on above: Performed By: #### C MP ####[facility] Ijngsqbylt7546 [place] [phone]. Garima Heraclio EGFR-AF BURUNDIAN >60 Normal >=60 [facility] Comment on above: Performed By: #### C MP ####[facility] Wxaviljeom[address] [place], [place] [address]Dr. Chapisrenu Heraclio EGFR-NON AF BUR[place]DIAN >60 Normal >=60 [facility] Comment on above: Performed By: #### C MP ####[facility] Txfxtyaiql6[address] [place], [place] [address]Dr. Garima Pulliam Globulin (S) [Mass/Vol] 2.6 g/dL Normal [facility] Comment on above: Performed By: #### C MP ####[facility] Zelhwuvvpx3328[address] [place], [place] [address]Dr. Garima Pulliam Glucose [Mass/Vol] 196 mg/dL Critically high 74-106 [facility] Comment on above: Performed By: #### C MP ####[facility] Mmijtymlgj5585[address] [place], [place] [address]Dr. Garima Pulliam Potassium [Moles/Vol] 4.0 mmol/L Normal 3.5-5.1 [facility] Comment on above: Performed By: #### C MP ####[facility] Rwslnipfcn8845[address] [place], [place] [address]Dr. Garima Pulliam Protein [Mass/Vol] 6.0 g/dL Critically low 6.4-8.2 [facility] Comment on above: Performed By: #### C MP ####[facility] Klcemvdxyu376[address] [place], [place] [address]Dr. Garima Pulliam Sodium [Moles/Vol] 139 mmol/L Normal 136-[address] [facility] Comment on above: Performed By: #### C MP ####[facility] Jlqaerxege456[address] [place], [place] [address]Dr. Garima Pulliam Urea nitrogen [Mass/Vol] 7.0 mg/dL Normal 7.0-18.0 [facility] Comment on above: Performed By: #### C MP ####[facility] [address]oetxhpi7860[address] [place], [place] [address]Dr. Garima Pulliam Urea nitrogen/Creatinine [Mass ratio] 10.0 mg/mg Normal [facility] Comment on above: Performed By: #### C MP ####[facility] Wgkdgrwgmm9406[address] [place], [place] [address]Dr. Garima Pulliam BNPon 01-12-2023 Natriuretic peptide B (Bld) [Mass/Vol] 141.0 pg/mL Normal <=900.0 [facility] Comment on above: Performed By: #### C MP, BNP, HSTROPN ####[facility] Rnghlvuepj2652 [place] [phone]. Garima Heraclio CBC AUTO DIFFon 01-12-2023 BASO # 0.0 103/ul Normal 0.0-0.1 [facility] Comment on above: Performed By: #### C BC ####[facility] Ezgexigavs254[address] [place], [place] [address]Dr. Garima Pulliam Basophils/100 WBC (Bld) 0.2 % Normal 0.2-2.0 The [facility] Comment on above: Performed By: #### C BC ####[facility] Szcjlvatdr95[address] [place], [place] [address]Dr. Garima Pulliam EO # 0.2 103/ul Normal 0.0-0.7 The [facility] Comment on above: Performed By: #### C BC ####[facility] [address]fnycirhvx[address] [place], [place] [address]Dr. Garima Pulliam Eosinophils/100 WBC (Bld) 2.7 % Normal 0.9-7.0 [facility] Comment on above: Performed By: #### C BC ####[facility] Ndvpmebyzz6546[address] [place], [place] [address]Dr. Chapisrenu Pulliam Erythrocyte distribution width (RBC) [Ratio] 13.3 % Normal 11.0-15.0 [facility] Comment on above: Performed By: #### C BC ####[facility] Edlhyhhzfh16[address] [place], [place] [address]Dr. Garima Pulliam Hematocrit (Bld) [Volume fraction] 42.3 % Normal 42.0-54.0 [facility] Comment on above: Performed By: #### C BC ####[facility] Ixohwkoyas[address] [place], [place] [address]Dr. Garima Pulliam Hemoglobin (Bld) [Mass/Vol] 14.3 g/dL Normal 14.0-18.0 [facility] Comment on above: Performed By: #### C BC ####[facility] Z[address]ekxgmdht8[address] [place], [place] [address]Dr. Garima Pulliam IG # 0.02 10e3/ul Normal 0.00-0.03 [facility] Comment on above: Performed By: #### C BC ####[facility] Ukyaawkhnx[address] [place] [phone]. Chapisrenu Pulliam IG % 0.2 % Normal 0.0-0.5 [facility] Comment on above: Performed By: #### C BC ####[facility] Rgwhfitnze4269 [place] [phone]. Garima Pulliam LYMPH # 2.6 103/ul Normal 1.2-3.8 [facility] Comment on above: Performed By: #### C BC ####[facility] Xoasbtkiwd6079 [place] [address]Dr. Chapisrenu Pulliam Lymphocytes/100 WBC (Bld) 29.6 % Normal 20.5-60.0 [facility] Comment on above: Performed By: #### C BC ####[facility] Youjgplgaw4913 [place] [address]Dr. Garima Pluliam MANUAL DIFF REQ NO Normal [facility] Comment on above: Performed By: #### C BC ####[facility] Rvfdzvcbgz2356 [place] [phone]. Garima Pulliam MCH (RBC) [Entitic mass] 30.2 pg Normal 25.9-34.0 [facility] Comment on above: Performed By: #### C BC ####[facility] Njhmcaclfq1694 [place] [phone]. Garima Pulliam MCHC (RBC) [Mass/Vol] 33.8 g/dL Normal 29.9-35.2 [facility] Comment on above: Performed By: #### C BC ####[facility] Wqgetwevgx4501 [place] [phone]. Garima Pulliam MCV (RBC) [Entitic vol] 89.2 fL Normal 80.0-94.0 [facility] Comment on above: Performed By: #### C BC ####[facility] I[address]ygnrhdx[address] [place], [place] [address]Dr. Garima Pulliam MONO # 0.7 103/ul Normal 0.3-0.8 [facility] Comment on above: Performed By: #### C BC ####[facility] Cxvnzedgqb1471 [place] [phone]. Garima Pulliam Monocytes/100 WBC (Bld) 8.3 % Normal 1.7-12.0 [facility] Comment on above: Performed By: #### C BC ####[facility] Ckplcjezpa3556 [place] [phone]. Garima Pulliam NEUT # 5.1 103/ul Normal 1.4-6.5 [facility] Comment on above: Performed By: #### C BC ####[facility] Zrzswvmpsm6077 [address] [place] [id number]. Garima Pulliam Neutrophils/100 WBC (Bld) 59.0 % Normal 43.0-75.0 The [facility] Comment on above: Performed By: #### C BC ####[facility] Wisvajihvs5[address] [place] [address]Dr. Garima Pulliam Platelet mean volume (Bld) [Entitic vol] 8.7 fL Critically low 9.5-13.5 The [facility] Comment on above: Performed By: #### C BC ####[facility] Fiqxoxejvu2806 [place] [id number]. Garima Pulliam PLT 182 103/ul Normal 150-450 The [facility] Comment on above: Performed By: #### C BC ####[facility] Eiyudtwmmt6815 [place] [id number]. Garima Pulliam RBC 4.74 106/ul Normal 4.70-6.10 The [facility] Comment on above: Performed By: #### C BC ####[facility] [address]ow[address] [place], [place] [id number]. Garima Pulliam WBC 8.7 103/ul Normal 4.0-11.0 The [facility] Comment on above: Performed By: #### C BC ####[facility] Idstffpwkg[address] [place], [place] [id number]. Garima Pulliam [facility]25 SARS-CoV-2 (COVID-19) RNA MARIE+probe Ql (Unsp spec) Not detected Normal NOT DETECTED The [facility] Comment on above: Result Comment: When diagnostic [...] for this test is supported by the [place] of Health and Human Service's declaration that [...] be used). Performed By: #### C VDTB ####[facility] Ftzffpmwkw1478 [place] [address]Dr. Garima Pulliam PROF 14(COMP METB)on 023 Albumin [Mass/Vol] 3.6 g/dL Normal 3.4-5.[address] [facility] Comment on above: Performed By: #### C MP, BNP, HSTROPN ####[facility] Rgtizaoypg6819 [place] [address]Dr. Garima Pulliam Albumin/Globulin [Mass ratio] 1.5 {ratio} Normal [facility] Comment on above: Performed By: #### C MP, BNP, HSTROPN ####[facility] Xzcsajagls9324 [place] [address]Dr. Garima Pulliam ALP [Catalytic activity/Vol] 79 U/L Normal 46-116 The [facility] Comment on above: Performed By: #### C MP, BNP, HSTROPN ####[facility] Ucanjymrwv0714 [place] [address]Dr. Garima Pulliam ALT [Catalytic activity/Vol] 27 U/L Normal 16-63 [facility] Comment on above: Performed By: #### C MP, BNP, HSTROPN ####[facility] Iugtsqrvcf1299 [place] [address]Dr. Garima Pulliam Anion gap [Moles/Vol] 11.7 mmol/L Normal [facility] Comment on above: Performed By: #### C MP, BNP, HSTROPN ####[facility] Vmzuqnbqir4246 [place] [address]Dr. Garima Pulliam AST [Catalytic activity/Vol] 21 U/L Normal 15-37 The [facility] Comment on above: Performed By: #### C MP, BNP, HSTROPN ####[facility] Cyedgsgnqi5085 [place] [address]Dr. Garima Pulliam Bilirubin [Mass/Vol] 0.3 mg/dL Normal 0.2-1.0 [facility] Comment on above: Performed By: #### C MP, BNP, HSTROPN ####[facility] Y[address]gr[address]psi[address] [place], [place] [address]Dr. Garima Pulliam Calcium [Mass/Vol] 8.9 mg/dL Normal 8.5-10.[address] [facility] Comment on above: Performed By: #### C MP, BNP, HSTROPN ####[facility] [address]sp[address]uz[address] [place], [place] [address]Dr. Garima Pulliam Chloride [Moles/Vol] 107 mmol/L Normal 98-107 [facility] Comment on above: Performed By: #### C MP, BNP, HSTROPN ####[facility] [address]cdz[address] [place], [place] [address]Dr. Garima Pulliam CO2 [Moles/Vol] 26.0 mmol/L Normal 21.0-32.0 The [facility] Comment on above: Performed By: #### C MP, BNP, HSTROPN ####[facility] [address]rw[address]rdi[address] [place], [place] [address]Dr. Garima Pulliam Creatinine [Mass/Vol] 0.65 mg/dL Critically low 0.70-1.30 [facility] Comment on above: Performed By: #### C MP, BNP, HSTROPN ####[facility] Lnvathqqib7787 [place] [address]Dr. Garima Pulliam EGFR-AF BURUNDIAN >60 Normal >=60 The [facility] Comment on above: Performed By: #### C MP, BNP, HSTROPN ####[facility] Dsmzvpgcnu1821 [place] [address]Dr. Garima Pulliam EGFR-NON AF BURUNDIAN >60 Normal >=60 [facility] Comment on above: Performed By: #### C MP, BNP, HSTROPN ####[facility] Geqaljlcpx[address] [place], [place] [address]Dr. Garima Pulliam Globulin (S) [Mass/Vol] 2.4 g/dL Normal [facility] Comment on above: Performed By: #### C MP, BNP, HSTROPN ####[facility] X[address]isjljam[address] [place], [place] [address]Dr. Garima Pulliam Glucose [Mass/Vol] 85 mg/dL Normal 74-106 [facility] Comment on above: Performed By: #### C MP, BNP, HSTROPN ####[facility] Rsqvtllook264[address] [place], [place] [address]Dr. Garima Pulliam Potassium [Moles/Vol] 3.7 mmol/L Normal 3.5-5.1 [facility] Comment on above: Performed By: #### C MP, BNP, HSTROPN ####[facility] [address]eqrpiic[address] [place], [place] [address]Dr. Garima Pulliam Protein [Mass/Vol] 6.0 g/dL Critically low 6.4-8.2 [facility] Comment on above: Performed By: #### C MP, BNP, HSTROPN ####[facility] Bzsnwcbnzi1202 [place] [address]Dr. Garima Pulliam Sodium [Moles/Vol] 141 mmol/L Normal 136-145 The [facility] Comment on above: Performed By: #### C MP, BNP, HSTROPN ####[facility] Ltmadcfdtn7169 [place] [address]Dr. Garima Pulliam Urea nitrogen [Mass/Vol] 5.0 mg/dL Critically low 7.0-18.0 The [facility] Comment on above: Performed By: #### C MP, BNP, HSTROPN ####[facility] Jykcnqwewj9281 [place] [address]Dr. Garima Pulliam Urea nitrogen/Creatinine [Mass ratio] 7.7 mg/mg Normal The [facility] Comment on above: Performed By: #### C MP, BNP, HSTROPN ####[facility] Vxkuxgopmz3764 [place] [address]Dr. Garima Pulliam PROTIMEon 01-12-2023 INR Coag (PPP) [Relative time] 1.16 {INR} Normal The [facility] Comment on above: Performed By: #### P TT, PT ####[facility] [address]owkmb[address] [place], [place] [address]Dr. Garima Pulliam INR GUIDELINES SEE BELOW Normal The [facility] Comment on above: Result Comment: WESLEY RED INR: 2.0 - 3.0 CONDITIONS NOT LISTED BELOW 2.5 - 3.5 FOR PROSTHETIC HEART VALVE REPLACEMENT 2.5 - 3.5 RECURRENT THROMBOSIS Performed By: #### P TT, PT ####[facility] [address]lnpgyyi[address] [place], [place] [address]Dr. Garima Pulliam PT Coag (PPP) [Time] 12.2 s Critically high 9.0-11.6 The [facility] Comment on above: Performed By: #### P TT, PT ####[facility] [address]prdfabo[address] [place], [place] [address]Dr. Garima Pulliam PTTon 01-12-2023 aPTT Coag (Bld) [Time] 29.1 s Normal 22.3-36.2 The [facility] Comment on above: Performed By: #### P TT, PT ####[facility] [address]rm[address] [place], [place] [address]Dr. Garima Pulliam TROPONIN, HIGH SENSITIVITYon 01-12-2023 HSTROP 10.3 pg/mL Normal 4.0-76.1 The [facility] Comment on above: Result Comment: CUT- OFF POINTS HAVE BEEN ESTABLISHED BASED ON THE FOURTH UNIVERSAL DEFINITIONS OF MYOCARDIALINFARCTION. THE UPPER REFERENCE LIMIT (URL) OF TROPONIN, DEFINED THE 99TH PERCENTILE OFcTnI DISTRIBUTION IN A REFERENCE POPULATION, HAS BEEN CONFIRMED THE DECISION THRESHOLDFOR MD DIAGNOSIS. Performed By: #### H STROPN ####[facility] Acsmlitkry27[address] [place] [address]Dr. Garima Pulliam HSTROP 9.2 pg/mL Normal 4.0-76.1 [facility] Comment on above: Result Comment: CUT- OFF POINTS HAVE BEEN ESTABLISHED BASED ON THE FOURTH UNIVERSAL DEFINITIONS OF MYOCARDIALINFARCTION. THE UPPER REFERENCE LIMIT (URL) OF TROPONIN, DEFINED THE 99TH PERCENTILE OFcTnI DISTRIBUTION IN A REFERENCE POPULATION, HAS BEEN CONFIRMED THE DECISION THRESHOLDFOR MD DIAGNOSIS. Performed By: #### C MP, BNP, HSTROPN ####[facility] [address]cilxiaqp[address] [place], [place] [address]Dr. Garima Pulliam XR CHEST 1 Von 01-12-2023 XR CHEST 1 V Normal [facility] XR CHEST 1 Von 01-01-2023 XR CHEST 1 V Normal The [facility] CARDIAC NASH 3-6on 3 CK [Catalytic activity/Vol] 196 U/L Normal 39-308 [facility] Comment on above: Performed By: #### C MREP ####[facility] [address]htjwnhw[address] [place], [place] [address]Dr. Garima Pulliam CK.MB [Mass/Vol] 7.41 ng/mL Critically high <=3.60 [facility] Comment on above: Performed By: #### C MREP ####[facility] Rmxuffxiia4298 [place] [address]Dr. Garima Pulliam HSTROP 10.3 pg/mL Normal 4.0-76.1 The [facility] Comment on above: Result Comment: CUT- OFF POINTS HAVE BEEN ESTABLISHED BASED ON THE FOURTH UNIVERSAL DEFINITIONS OF MYOCARDIALINFARCTION. THE UPPER REFERENCE LIMIT (URL) OF TROPONIN, DEFINED THE 99TH PERCENTILE OFcTnI DISTRIBUTION IN A REFERENCE POPULATION, HAS BEEN CONFIRMED THE DECISION THRESHOLDFOR MD DIAGNOSIS. Performed By: #### C MREP ####[facility] Eajrydidmd2043 [place] [address]Dr. Garima Pulliam XR CHEST 1 Von 12-26-2022 XR CHEST 1 V Normal The [facility] BNPon 12-25-2022 Natriuretic peptide B (Bld) [Mass/Vol] 98.0 pg/mL Normal <=900.0 The [facility] Comment on above: Performed By: #### B PAGE TECHNICIAN, BMP, CMADM ####[facility] Owvjkhbtlq2767 [place] [id number]. Garima Pulliam CARDIAC NASH ADMITon 023 CK [Catalytic activity/Vol] 208 U/L Normal 39-308 The [facility] Comment on above: Performed By: #### B PAGE TECHNICIAN, BMP, CMADM ####[facility] Jqcvgegnzr4528 [place] [address]Dr. Garima Pulliam CK.MB [Mass/Vol] 7.63 ng/mL Critically high <=3.60 The [facility] Comment on above: Performed By: #### B PAGE TECHNICIAN, BMP, CMADM ####[facility] Slofkkzsby3746 [place] [address]Dr. Garima Pulliam HSTROP 8.8 pg/mL Normal 4.0-76.1 The [facility] Comment on above: Result Comment: CUT- OFF POINTS HAVE BEEN ESTABLISHED BASED ON THE FOURTH UNIVERSAL DEFINITIONS OF MYOCARDIALINFARCTION. THE UPPER REFERENCE LIMIT (URL) OF TROPONIN, DEFINED THE 99TH PERCENTILE OFcTnI DISTRIBUTION IN A REFERENCE POPULATION, HAS BEEN CONFIRMED THE DECISION THRESHOLDFOR MD DIAGNOSIS. Performed By: #### B PAGE TECHNICIAN, BMP, CMADM ####[facility] Uaygrgcvwm0495 [place] [address]Dr. Garima Pulliam DORIS 83 ng/mL Normal 16-96 The [facility] Comment on above: Performed By: #### B PAGE TECHNICIAN, BMP, CMADM ####[facility] Ioggwzrqay7314 [place] [id number]. Garima Pulliam CBC AUTO DIFFon 12-25-2022 BASO # 0.0 103/ul Normal 0.0-0.1 The [facility] Comment on above: Performed By: #### C BC ####[facility] Icharpvycc4980 [place] [address]Dr. Garima Pulliam Basophils/100 WBC (Bld) 0.0 % Critically low 0.2-2.0 [facility] Comment on above: Performed By: #### C BC ####[facility] P[address]wtfdjod[address] [place], [place] [address]Dr. Chapisrenu Pulliam EO # 0.0 103/ul Normal 0.0-0.7 The [facility] Comment on above: Performed By: #### C BC ####[facility] Lfcvgjjprr[address] [place], [place] [address]Dr. Garima Pulliam Eosinophils/100 WBC (Bld) 0.7 % Critically low 0.9-7.0 [facility] Comment on above: Performed By: #### C BC ####[facility] [address]bgsfqu[address] [place], [place] [address]Dr. Garima Pulliam Erythrocyte distribution width (RBC) [Ratio] 13.4 % Normal 11.0-15.0 [facility] Comment on above: Performed By: #### C BC ####[facility] B[address]ttsaeyj06[address] [place], [place] [address]Dr. Garima Pulliam Hematocrit (Bld) [Volume fraction] 42.9 % Normal 42.0-54.0 [facility] Comment on above: Performed By: #### C BC ####[facility] L[address]fsavghae[address] [place], [place] [address]Dr. Chapisrenu Pulliam Hemoglobin (Bld) [Mass/Vol] 14.4 g/dL Normal 14.0-18.0 The [facility] Comment on above: Performed By: #### C BC ####[facility] Ir[address]ljukxyj7[address] [place], [place] [address]Dr. Garima Pulliam IG # 0.00 10e3/ul Normal 0.00-0.03 The [facility] Comment on above: Performed By: #### C BC ####[facility] Perhvzdjnq[address] [place], [place] [address]Dr. Garima Pulliam IG % 0.0 % Normal 0.0-0.5 The [facility] Comment on above: Performed By: #### C BC ####[facility] K[address]xbnenay[address] [place], [place] [address]Dr. Garima Pulliam LYMPH # 2.4 103/ul Normal 1.2-3.8 [facility] Comment on above: Performed By: #### C BC ####[facility] Taugalzzgf6104 [place] [address]Dr. Garima Pulliam Lymphocytes/100 WBC (Bld) 29.2 % Normal 20.5-60.0 [facility] Comment on above: Performed By: #### C BC ####[facility] Ozmxvcxkcz9327 [place] [address]Dr. Garima Pulliam MANUAL DIFF REQ NO Normal [facility] Comment on above: Performed By: #### C BC ####[facility] Ewjhkksjvf4879 [place] [address]Dr. Garima Pulliam MCH (RBC) [Entitic mass] 30.7 pg Normal 25.9-34.0 [facility] Comment on above: Performed By: #### C BC ####[facility] [address]cgueihktd6[address] [place], [place] [address]Dr. Garima Pulliam MCHC (RBC) [Mass/Vol] 33.6 g/dL Normal 29.9-35.2 [facility] Comment on above: Performed By: #### C BC ####[facility] [address]ebtcwqv[address] [place], [place] [address]Dr. Garima Pulliam MCV (RBC) [Entitic vol] 91.5 fL Normal 80.0-94.0 The [facility] Comment on above: Performed By: #### C BC ####[facility] Zzzngxxuvk3607 [place] [address]Dr. Garima Pulliam MONO # 0.0 103/ul Critically low 0.3-0.8 [facility] Comment on above: Performed By: #### C BC ####[facility] Okmipyenjw3380 [place] [address]Dr. Garima Pulliam Monocytes/100 WBC (Bld) 8.0 % Normal 1.7-12.0 The [facility] Comment on above: Performed By: #### C BC ####[facility] Dpiygwylcs9586 [place] [address]Dr. Garima Pulliam NEUT # 5.1 103/ul Normal 1.4-6.5 [facility] Comment on above: Performed By: #### C BC ####[facility] Htqiaesddt1775 [place] [id number]. Garima Pulliam Neutrophils/100 WBC (Bld) 62.8 % Normal 43.0-75.0 [facility] Comment on above: Performed By: #### C BC ####[facility] Fkbmjmgmru4493 [place] [id number]. Garima Pulliam Platelet mean volume (Bld) [Entitic vol] 8.6 fL Critically low 9.5-13.5 [facility] Comment on above: Performed By: #### C BC ####[facility] Uqrakviulw0768 [place] [phone]. Garima Pulliam PLT 200 103/ul Normal 150-450 The [facility] Comment on above: Performed By: #### C BC ####[facility] Vshcnhkamj9663 [place] [phone]. Garima Pulliam RBC 4.69 106/ul Critically low 4.70-6.10 The [facility] Comment on above: Performed By: #### C BC ####[facility] Vwzwipbtpk0364 [place] [phone]. Garima Pulliam WBC 8.2 103/ul Normal 4.0-11.0 The [facility] Comment on above: Performed By: #### C BC ####[facility] Kptskcnrve1266 [place] [phone]. Garima Pulliam [facility]on SARS-CoV-2 (COVID-19) RNA MARIE+probe Ql (Unsp spec) Not detected Normal NOT DETECTED The [facility] Comment on above: Result Comment: When diagnostic [...] for this test is supported by the [place] of Health and Human Service's declaration that [...] be used). Performed By: #### C VDTBH ####[facility] E[address]zcugwm[address] [place], [place] [address]Dr. Garima Pulliam INFLUENZA A AND B AGon 12-25 INFLUANE SEE BELOW Normal [facility] Comment on above: Result Comment: Nega tive for Flu A protein angiten. Infection due to Flu A cannot be ruled out. Flu A angiten in the sample may be below the detection limit of the test. Performed By: #### I NFLUAB ####[facility] F[address]ir[address] [place] [address]. Garima Pulliam INFLUBNEGH SEE BELOW Normal [facility] Comment on above: Result Comment: Nega tive for Flu B protein antigen. Infection due to Flu B cannot be ruled out. Flu B antigen in the sample may be below the detection limit of the test. Performed By: #### I NFLUAB ####[facility] [address]bcjjv[address] [place], [place] [address]Dr. Garima Pulliam INFLUENZA A AG Negative Normal NEGATIVE SEE COMMENT [facility] Comment on above: Performed By: #### I NFLUAB ####[facility] Eqdacnxvvx179[address] [place], [place] [address]Dr. Garima Pulliam INFLUENZA B AG Negative Normal NEGATIVE SEE COMMENT [facility] Comment on above: Performed By: #### I NFLUAB ####[facility] [address]zr[address]xr[address] [place] [address]. Garima Pulliam PROF CHEM 8 (BAS METB)on Anion gap [Moles/Vol] 11.1 mmol/L Normal [facility] Comment on above: Performed By: #### B PAGE TECHNICIAN, BMP, CMADM ####[facility] Aegvqiywim6098 [place] [id number]. Garima Pulliam Calcium [Mass/Vol] 8.5 mg/dL Normal 8.5-10.[address] [facility] Comment on above: Performed By: #### B PAGE TECHNICIAN, BMP, CMADM ####[facility] Phkjaaiinn5887 [place] [id number]. Garima Pulliam Chloride [Moles/Vol] 106 mmol/L Normal 98-107 [facility] Comment on above: Performed By: #### B PAGE TECHNICIAN, BMP, CMADM ####[facility] Jdvfulsxme0420 [place] [address]Dr. Garima Pulliam CO2 [Moles/Vol] 27.4 mmol/L Normal 21.0-32.0 [facility] Comment on above: Performed By: #### B PAGE TECHNICIAN, BMP, CMADM ####[facility] Qnkvvlykht7516 [place] [address]Dr. Garima Pulliam Creatinine [Mass/Vol] 0.65 mg/dL Critically low 0.70-1.30 [facility] Comment on above: Performed By: #### B PAGE TECHNICIAN, BMP, CMADM ####[facility] Radmeqbajg3175 [place] [address]Dr. Garima Pulliam EGFR-AF BURUNDIAN >60 Normal >=60 [facility] Comment on above: Performed By: #### B PAGE TECHNICIAN, BMP, CMADM ####[facility] Gwgvkuvhie5267 [place] [address]Dr. Garima Pulliam EGFR-NON AF BURUNDIAN >60 Normal >=60 [facility] Comment on above: Performed By: #### B PAGE TECHNICIAN, BMP, CMADM ####[facility] Mlvoghxunw2492 [place] [address]Dr. Garima Pulliam Glucose [Mass/Vol] 140 mg/dL Critically high 74-106 [facility] Comment on above: Performed By: #### B PAGE TECHNICIAN, BMP, CMADM ####[facility] Lszdzngybi6910 [place] [address]Dr. Garima Pulliam Potassium [Moles/Vol] 3.5 mmol/L Normal 3.5-5.1 [facility] Comment on above: Performed By: #### B PAGE TECHNICIAN, MARVIN, CMAANA ROSA ####[facility] Ucojjrokdu1921 [place] [address]Dr. Garima Pulliam Sodium [Moles/Vol] 141 mmol/L Normal 136-145 [facility] Comment on above: Performed By: #### B PAGE TECHNICIAN, MARVIN, CMAANA ROSA ####[facility] Euzfkpiadn8076 [place] [address]Dr. Chapisrenu Pulliam Urea nitrogen [Mass/Vol] 8.0 mg/dL Normal 7.0-18.0 [facility] Comment on above: Performed By: #### B PAGE TECHNICIANMARVIN CMADM ####[facility] Mwnqmikpjx6315 [place] [address]Dr. Garima Pulliam Urea nitrogen/Creatinine [Mass ratio] 12.3 mg/mg Normal [facility] Comment on above: Performed By: #### B MARVIN FRENCH, CMAANA ROSA ####[facility] [address]zxyga[address] [place], [place] [address]Dr. Garima Pulliam CARDIAC NASH ADMITon 023 CK [Catalytic activity/Vol] 165 U/L Normal 39-308 [facility] Comment on above: Performed By: #### B NANCY HERNANDEZ ####[facility] [address]tscltc[address] [place], [place] [address]Dr. Chapisrenu Pulliam CK.MB [Mass/Vol] 6.48 ng/mL Critically high <=3.60 The [facility] Comment on above: Performed By: #### B MP, CMADM ####[facility] [address] [place], [place] [address]Dr. Garima Heraclio HSTROP 11.7 pg/mL Normal 4.0-76.1 The [facility] Comment on above: Result Comment: CUT- OFF POINTS HAVE BEEN ESTABLISHED BASED ON THE FOURTH UNIVERSAL DEFINITIONS OF MYOCARDIALINFARCTION. THE UPPER REFERENCE LIMIT (URL) OF TROPONIN, DEFINED THE 99TH PERCENTILE OFcTnI DISTRIBUTION IN A REFERENCE POPULATION, HAS BEEN CONFIRMED THE DECISION THRESHOLDFOR MD DIAGNOSIS. Performed By: #### B DAVID, CMADM ####[facility] Jybuguvrwp4[address] [place] [phone]. Garima Pulliam DORIS 83 ng/mL Normal 16-96 The [facility] Comment on above: Performed By: #### B DAVID, ERVINDM ####[facility] Egluslibdp[address] [place] [phone]. Garima Pulliam CBC AUTO DIFFon 12-10-2022 BASO # 0.0 103/ul Normal 0.0-0.1 The [facility] Comment on above: Performed By: #### C BC ####[facility] Wajohkdhfz4406 [place] [phone]. Garima Pulliam Basophils/100 WBC (Bld) 0.3 % Normal 0.2-2.0 The [facility] Comment on above: Performed By: #### C BC ####[facility] Dgsawlqjqz76[address] [place] [phone]. Garima Pulliam EO # 0.1 103/ul Normal 0.0-0.7 The [facility] Comment on above: Performed By: #### C BC ####[facility] Lejvwtyeiz6242 [place] [phone]. Garima Pulliam Eosinophils/100 WBC (Bld) 0.4 % Critically low 0.9-7.0 The [facility] Comment on above: Performed By: #### C BC ####[facility] Qmwwzfdpzc2633 [place] [phone]. Garima Pulliam Erythrocyte distribution width (RBC) [Ratio] 13.2 % Normal 11.0-15.0 The [facility] Comment on above: Performed By: #### C BC ####[facility] Qwundofozg5474 [place] [phone]. Garima Pulliam Hematocrit (Bld) [Volume fraction] 42.4 % Normal 42.0-54.0 The [facility] Comment on above: Performed By: #### C BC ####[facility] He[address] [place], [place] [id number]. Garima Pulliam Hemoglobin (Bld) [Mass/Vol] 14.4 g/dL Normal 14.0-18.0 The [facility] Comment on above: Performed By: #### C BC ####[facility] Hmjouqesfs85[address] [place] [phone]. Garima Pulliam IG # 0.05 10e3/ul Critically high 0.00-0.03 [facility] Comment on above: Performed By: #### C BC ####[facility] Drgshoppab2114 [place] [phone]. Garima Pulliam IG % 0.4 % Normal 0.0-0.5 [facility] Comment on above: Performed By: #### C BC ####[facility] Iijlxihdij[address] [place] [address]Dr. Garima Pulliam LYMPH # 0.8 103/ul Critically low 1.2-3.8 [facility] Comment on above: Performed By: #### C BC ####[facility] Msqzvbqtvy4984 [place] [address]Dr. Garima Pulliam Lymphocytes/100 WBC (Bld) 6.5 % Critically low 20.5-60.0 [facility] Comment on above: Performed By: #### C BC ####[facility] Dljovyvyld0308 [place] [address]Dr. Garima Pulliam MANUAL DIFF REQ NO Normal [facility] Comment on above: Performed By: #### C BC ####[facility] Npljwkvlev0127 [place] [address]Dr. Garima Pulliam MCH (RBC) [Entitic mass] 30.5 pg Normal 25.9-34.0 [facility] Comment on above: Performed By: #### C BC ####[facility] X[address]vseacux[address] [place], [place] [address]Dr. Garima Pulliam MCHC (RBC) [Mass/Vol] 34.0 g/dL Normal 29.9-35.2 The [facility] Comment on above: Performed By: #### C BC ####[facility] Bxldnejaaj80[address] [place] [address]Dr. Garima Pulliam MCV (RBC) [Entitic vol] 89.8 fL Normal 80.0-94.0 [facility] Comment on above: Performed By: #### C BC ####[facility] Dhiknuwlmd8607 [place] [phone]. Garima Pulliam MONO # 0.2 103/ul Critically low 0.3-0.8 The [facility] Comment on above: Performed By: #### C BC ####[facility] Znqvrrbqio9346 [place] [phone]. Garima Pulliam Monocytes/100 WBC (Bld) 2.0 % Normal 1.7-12.0 The [facility] Comment on above: Performed By: #### C BC ####[facility] Hztzmuolkr1306 [place] [phone]. Garima Pulliam NEUT # 10.5 103/ul Critically high 1.4-6.5 The [facility] Comment on above: Performed By: #### C BC ####[facility] Nwazzboicx4600 [place] [phone]. Garima Pulliam Neutrophils/100 WBC (Bld) 90.4 % Critically high 43.0-75.0 The [facility] Comment on above: Performed By: #### C BC ####[facility] Vsyboqinoe5900 [place] [phone]. Garima Pulliam Platelet mean volume (Bld) [Entitic vol] 9.4 fL Critically low 9.5-13.5 The [facility] Comment on above: Performed By: #### C BC ####[facility] Lcyoysajuo3119 [place] [phone]. Garima Pulliam PLT 198 103/ul Normal 150-450 The [facility] Comment on above: Performed By: #### C BC ####[facility] Gkougqelto5290 [place] [phone]. Garima Pulliam RBC 4.72 106/ul Normal 4.70-6.10 The [facility] Comment on above: Performed By: #### C BC ####[facility] Kgdfiuempa8045 [place] [phone]. Garima Pulliam WBC 11.6 103/ul Critically high 4.0-11.0 [facility] Comment on above: Performed By: #### C BC ####[facility] Yucnnkgkxn5815 [place] [address]Dr. Garima Pulliam PROF CHEM 8 (BAS METB)on Anion gap [Moles/Vol] 11.3 mmol/L Normal [facility] Comment on above: Performed By: #### B DAVID, CMADM ####[facility] Uowsvwmmnz3404 [place] [address]Dr. Garima Pulliam Calcium [Mass/Vol] 8.9 mg/dL Normal 8.5-10.[address] [facility] Comment on above: Performed By: #### B DAVID, CMADM ####[facility] Bzlynlflyp3098 [place] [address]Dr. Garima Pulliam Chloride [Moles/Vol] 103 mmol/L Normal 98-107 [facility] Comment on above: Performed By: #### B DAVID, CMADM ####[facility] Rsocclbcqj2115 [place] [address]Dr. Garima Pulliam CO2 [Moles/Vol] 28.2 mmol/L Normal 21.0-32.0 [facility] Comment on above: Performed By: #### B DAVID, CMADM ####[facility] Mgvfqlzokp6201 [place] [address]Dr. Garima Pulliam Creatinine [Mass/Vol] 0.60 mg/dL Critically low 0.70-1.30 [facility] Comment on above: Performed By: #### Trae HERNANDEZ, CMADM ####[facility] Siixlmroju6965 [place] [address]Dr. Garima Pulliam EGFR-AF BURUNDIAN >60 Normal >=60 [facility] Comment on above: Performed By: #### B DAVID, CMADM ####[facility] Vsgaziusjm1654 [place] [address]Dr. Garima Pulliam EGFR-NON AF BURUNDIAN >60 Normal >=60 [facility] Comment on above: Performed By: #### B DAVID, CMADM ####[facility] Ajzzijwphl1893 [place] [address]Dr. Garima Pulliam Glucose [Mass/Vol] 166 mg/dL Critically high 74-106 [facility] Comment on above: Performed By: #### B DAVID, NANCY ####[facility] Zwslxpdghr5825 [place] [address]Dr. Garima Pulliam Potassium [Moles/Vol] 3.5 mmol/L Normal 3.5-5.1 [facility] Comment on above: Performed By: #### B DAVID, CMADM ####[facility] [address]muv[address] [place], [place] [address]Dr. Garima Pulliam Sodium [Moles/Vol] 139 mmol/L Normal 136-[address] [facility] Comment on above: Performed By: #### B DAVID, NANCY ####[facility] [address]vlkvlbs[address] [place], [place] [address]Dr. Garima Pulliam Urea nitrogen [Mass/Vol] 9.0 mg/dL Normal 7.0-18.0 [facility] Comment on above: Performed By: #### B NANCY HERNANDEZ ####[facility] W[address]becpvp[address] [place], [place] [address]Dr. Garima Pulliam Urea nitrogen/Creatinine [Mass ratio] 15.0 mg/mg Normal [facility] Comment on above: Performed By: #### B NANCY HERNANDEZ ####[facility] Z[address]qpzuwnv[address] [place], [place] [address]Dr. Chapisrenu Heraclio XR CHEST 1 Von 12-10-2022 XR CHEST 1 V Normal The [facility] BNPon 11-27-2022 Natriuretic peptide B (Bld) [Mass/Vol] 95.0 pg/mL Normal <=900.0 The [facility] Comment on above: Performed By: #### C MP, HSTROPN, BNP ####[facility] [address]zfqqpv[address] [place], [place] [address]Dr. Garima Pulliam CBC AUTO DIFFon 11-27-2022 BASO # 0.0 103/ul Normal 0.0-0.1 [facility] Comment on above: Performed By: #### C BC ####[facility] Jkwiupzipu[address] [place], [place] [address]Dr. Garima Pulliam Basophils/100 WBC (Bld) 0.2 % Normal 0.2-2.0 [facility] Comment on above: Performed By: #### C BC ####[facility] Hdffebbwza7784 [place] [phone]. Garima Pulliam EO # 0.2 103/ul Normal 0.0-0.7 The [facility] Comment on above: Performed By: #### C BC ####[facility] Uoxnurgomv9056 [place] [address]Dr. Garima Pulliam Eosinophils/100 WBC (Bld) 2.0 % Normal 0.9-7.0 [facility] Comment on above: Performed By: #### C BC ####[facility] [address]ftehjm[address] [place], [place] [address]Dr. Garima Pulliam Erythrocyte distribution width (RBC) [Ratio] 13.2 % Normal 11.0-15.0 [facility] Comment on above: Performed By: #### C BC ####[facility] [address]pxjphkq[address] [place], [place] [address]Dr. Garima Pulliam Hematocrit (Bld) [Volume fraction] 42.4 % Normal 42.0-54.0 [facility] Comment on above: Performed By: #### C BC ####[facility] Xvchpupkur[address] [place], [place] [address]Dr. Garima Pulliam Hemoglobin (Bld) [Mass/Vol] 14.4 g/dL Normal 14.0-18.0 [facility] Comment on above: Performed By: #### C BC ####[facility] [address]ps[address]quv[address] [place], [place] [address]Dr. Garima Pulliam IG # 0.04 10e3/ul Critically high 0.00-0.03 [facility] Comment on above: Performed By: #### C BC ####[facility] [address]orpsbaf[address] [place], [place] [address]Dr. Garima Pulliam IG % 0.4 % Normal 0.0-0.5 The [facility] Comment on above: Performed By: #### C BC ####[facility] [address]frpowfoh[address] [place], [place] [address]Dr. Chapisrenu Pulliam LYMPH # 2.2 103/ul Normal 1.2-3.8 The [facility] Comment on above: Performed By: #### C BC ####[facility] Cxxaulqxdj1143 [place] [phone]. Garima Pulliam Lymphocytes/100 WBC (Bld) 21.5 % Normal 20.5-60.0 [facility] Comment on above: Performed By: #### C BC ####[facility] Kapqiopxwx6249 [place] [phone]. Garima Pulliam MANUAL DIFF REQ NO Normal [facility] Comment on above: Performed By: #### C BC ####[facility] Vsrhnqegpk5125 [place] [phone]. Garima Pulliam MCH (RBC) [Entitic mass] 30.4 pg Normal 25.9-34.0 The [facility] Comment on above: Performed By: #### C BC ####[facility] Wzhqvpwexd8645 [place] [phone]. Garima Pulliam MCHC (RBC) [Mass/Vol] 34.0 g/dL Normal 29.9-35.2 The [facility] Comment on above: Performed By: #### C BC ####[facility] Wjtcmppkjd9438 [place] [phone]. Garima Pulliam MCV (RBC) [Entitic vol] 89.6 fL Normal 80.0-94.0 The [facility] Comment on above: Performed By: #### C BC ####[facility] Rwsdxhrpbe6474 [place] [phone]. Garima Pulliam MONO # 0.8 103/ul Normal 0.3-0.8 The [facility] Comment on above: Performed By: #### C BC ####[facility] Bqnehqfjeb2912 [place] [phone]. Garima Pulliam Monocytes/100 WBC (Bld) 7.7 % Normal 1.7-12.0 The [facility] Comment on above: Performed By: #### C BC ####[facility] Wsqgbompff2976 [place] [phone]. Garima Pulliam NEUT # 7.0 103/ul Critically high 1.4-6.5 The [facility] Comment on above: Performed By: #### C BC ####[facility] Usyodwxdom1315 [place] [address]Dr. Garima Pulliam Neutrophils/100 WBC (Bld) 68.2 % Normal 43.0-75.0 [facility] Comment on above: Performed By: #### C BC ####[facility] Dldvxkbmck9874 [place] [address]Dr. Garima Pulliam Platelet mean volume (Bld) [Entitic vol] 8.9 fL Critically low 9.5-13.5 [facility] Comment on above: Performed By: #### C BC ####[facility] Sxzjkicdmw0133 [place] [address]Dr. Garima Pulliam PLT 222 103/ul Normal 150-450 [facility] Comment on above: Performed By: #### C BC ####[facility] Pmuymdrlhr4759 [place] [address]Dr. Garima Pulliam RBC 4.73 106/ul Normal 4.70-6.10 [facility] Comment on above: Performed By: #### C BC ####[facility] [address]lswidk[address] [place], [place] [address]Dr. Garima Pulliam WBC 10.3 103/ul Normal 4.0-11.0 [facility] Comment on above: Performed By: #### C BC ####[facility] Efwwgotxud0451 [place] [address]Dr. Garima Pulliam PROF 14(COMP METB)on 023 Albumin [Mass/Vol] 3.7 g/dL Normal 3.4-5.[address] [facility] Comment on above: Performed By: #### C MP, HSTROPN, BNP ####[facility] Prkakriwjf4425 [place] [address]Dr. Garima Pulliam Albumin/Globulin [Mass ratio] 1.5 {ratio} Normal [facility] Comment on above: Performed By: #### C MP, HSTROPN, BNP ####[facility] Mjstmxtedn2094 [place] [address]Dr. Garima Pulliam ALP [Catalytic activity/Vol] 79 U/L Normal 46-116 [facility] Comment on above: Performed By: #### C DAVID HSTROPN, BNP ####[facility] Mogzwrazun2509 [place] [address]Dr. Garima Pulliam ALT [Catalytic activity/Vol] 32 U/L Normal 16-63 [facility] Comment on above: Performed By: #### C DAVID HSTROPN, BNP ####[facility] Yletzvagpl2738 [place] [address]Dr. Garima Pulliam Anion gap [Moles/Vol] 9.5 mmol/L Normal [facility] Comment on above: Performed By: #### C DAVID HSTROPN, BNP ####[facility] [address]mdxvcb[address] [place], [place] [address]Dr. Garima Pulliam AST [Catalytic activity/Vol] 25 U/L Normal 15-37 [facility] Comment on above: Performed By: #### C DAVID HSTROPN, BNP ####[facility] [address]qbggbd[address] [place], [place] [address]Dr. Garima Pulliam Bilirubin [Mass/Vol] 0.4 mg/dL Normal 0.2-1.0 [facility] Comment on above: Performed By: #### C DAVID HSTROPN, BNP ####[facility] [address]sobzsakg[address] [place], [place] [address]Dr. Garima Pulliam Calcium [Mass/Vol] 8.9 mg/dL Normal 8.5-10.[address] [facility] Comment on above: Performed By: #### C DAVID, HSTROPN, BNP ####[facility] Iaumxcdbjs[address] [place], [place] [address]Dr. Garima Pulliam Chloride [Moles/Vol] 103 mmol/L Normal 98-107 The [facility] Comment on above: Performed By: #### C DAVID, HSTROPN, BNP ####[facility] Vafsygbcrn9164 [place] [address]Dr. Garima Pulliam CO2 [Moles/Vol] 28.6 mmol/L Normal 21.0-32.0 [facility] Comment on above: Performed By: #### C MP, HSTROPN, BNP ####[facility] Nlizcviaqk2858 [place] [address]Dr. Garima Pulliam Creatinine [Mass/Vol] 0.72 mg/dL Normal 0.70-1.30 [facility] Comment on above: Performed By: #### C MP, HSTROPN, BNP ####[facility] Hcwucopwxa8564 [place] [address]Dr. Garima Pulliam EGFR-AF [place]URUNDIAN >60 Normal >=60 [facility] Comment on above: Performed By: #### C MP, HSTROPN, BNP ####[facility] O[address]qjkkazo[address] [place], [place] [address]Dr. Garima Pulliam EGFR-NON AF BURUNDIAN >60 Normal >=60 [facility] Comment on above: Performed By: #### C MP, HSTROPN, BNP ####[facility] G[address]zksldtv264[address] [place], [place] [address]Dr. Garima Pulliam Globulin (S) [Mass/Vol] 2.5 g/dL Normal [facility] Comment on above: Performed By: #### C MP, HSTROPN, BNP ####[facility] [address]ccqaokw[address] [place], [place] [address]Dr. Garima Pulliam Glucose [Mass/Vol] 114 mg/dL Critically high 74-106 [facility] Comment on above: Performed By: #### C MP, HSTROPN, BNP ####[facility] M[address]wcdukpq[address] [place], [place] [address]Dr. Garima Pulliam Potassium [Moles/Vol] 4.1 mmol/L Normal 3.5-5.1 [facility] Comment on above: Performed By: #### C MP, HSTROPN, BNP ####[facility] [address]vsoyrm[address] [place], [place] [address]Dr. Garima Pulliam Protein [Mass/Vol] 6.2 g/dL Critically low 6.4-8.2 [facility] Comment on above: Performed By: #### C MP, HSTROPN, BNP ####[facility] Bbeeixogto8641 [place] [address]Dr. Garima Pulliam Sodium [Moles/Vol] 137 mmol/L Normal 136-145 [facility] Comment on above: Performed By: #### C MP, HSTROPN, BNP ####[facility] Utncckllkw5387 [place] [address]Dr. Garima Pulliam Urea nitrogen [Mass/Vol] 13.0 mg/dL Normal 7.0-18.0 [facility] Comment on above: Performed By: #### C MP, HSTROPN, BNP ####[facility] Mkxapqkonm9291 [place] [address]Dr. Garima Pulliam Urea nitrogen/Creatinine [Mass ratio] 18.1 mg/mg Normal [facility] Comment on above: Performed By: #### C MP, HSTROPN, BNP ####[facility] W[address]xpnxiny[address] [place], [place] [address]Dr. Garima Pulliam TROPONIN, HIGH SENSITIVITYon 11-27-2022 HSTROP 11.8 pg/mL Normal 4.0-76.1 [facility] Comment on above: Result Comment: CUT- OFF POINTS HAVE BEEN ESTABLISHED BASED ON THE FOURTH UNIVERSAL DEFINITIONS OF MYOCARDIALINFARCTION. THE UPPER REFERENCE LIMIT (URL) OF TROPONIN, DEFINED THE 99TH PERCENTILE OFcTnI DISTRIBUTION IN A REFERENCE POPULATION, HAS BEEN CONFIRMED THE DECISION THRESHOLDFOR MD DIAGNOSIS. Performed By: #### C MP, HSTROPN, BNP ####[facility] Yaetsmwous[address] [place], [place] [address]Dr. Garima Pulliam XR CHEST 1 Von 11-27-2022 XR CHEST 1 V Normal The [facility] BNPon 11-20-2022 Natriuretic peptide B (Bld) [Mass/Vol] 73.0 pg/mL Normal <=900.0 The [facility] Comment on above: Performed By: #### B MP, HSTROPN, BNP ####[facility] Cmqiuzidmm3425 [place] [address]Dr. Chapisrenu uPlliam CBC AUTO DIFFon 11-20-2022 BASO # 0.0 103/ul Normal 0.0-0.1 [facility] Comment on above: Performed By: #### C BC ####[facility] Gxifhaxlka3234 [place] [phone]. Garima Pulliam Basophils/100 WBC (Bld) 0.3 % Normal 0.2-2.0 The [facility] Comment on above: Performed By: #### C BC ####[facility] Izxjzottbb[address] [place], [place] [address]Dr. Garima Pulliam EO # 0.2 103/ul Normal 0.0-0.7 The [facility] Comment on above: Performed By: #### C BC ####[facility] [address]xvhze[address] [place], [place] [address]Dr. Garima Pulliam Eosinophils/100 WBC (Bld) 2.1 % Normal 0.9-7.0 The [facility] Comment on above: Performed By: #### C BC ####[facility] Wzteivxfvq[address] [place], [place] [address]Dr. Garima Pulliam Erythrocyte distribution width (RBC) [Ratio] 13.2 % Normal 11.0-15.0 [facility] Comment on above: Performed By: #### C BC ####[facility] [address]kvxhv[address] [place], [place] [address]Dr. Garima Pulliam Hematocrit (Bld) [Volume fraction] 43.4 % Normal 42.0-54.0 [facility] Comment on above: Performed By: #### C BC ####[facility] [address]rf[address] [place], [place] [id number]. Garima Pulliam Hemoglobin (Bld) [Mass/Vol] 14.6 g/dL Normal 14.0-18.0 The [facility] Comment on above: Performed By: #### C BC ####[facility] Y[address]bxsfy[address] [place], [place] [address]Dr. Garima Pulliam IG # 0.02 10e3/ul Normal 0.00-0.03 [facility] [facility] Comment on above: Performed By: #### C BC ####[facility] [address] [place], [place] [address]Dr. Garima Pulliam IG % 0.2 % Normal 0.0-0.5 The [facility] Comment on above: Performed By: #### C BC ####[facility] Rwhhpzyosa29[address] [place] [phone]. Garima Heraclio LYMPH # 2.1 103/ul Normal 1.2-3.8 [facility] Comment on above: Performed By: #### C BC ####[facility] Ptvrnzpuxy3446 [place] [phone]. Garima Pulliam Lymphocytes/100 WBC (Bld) 19.2 % Critically low 20.5-60.0 [facility] Comment on above: Performed By: #### C BC ####[facility] Lshpvwzpoq3706 [place] [phone]. Garima Pulliam MANUAL DIFF REQ NO Normal [facility] Comment on above: Performed By: #### C BC ####[facility] Qbbvnraqyt8760 [place] [phone]. Garima Pulliam MCH (RBC) [Entitic mass] 30.4 pg Normal 25.9-34.0 [facility] Comment on above: Performed By: #### C BC ####[facility] Eukzvmiazx7913 [place] [phone]. Garima Heraclio MCHC (RBC) [Mass/Vol] 33.6 g/dL Normal 29.9-35.2 The [facility] Comment on above: Performed By: #### C BC ####[facility] Kwixesoolw5899 [place] [phone]. Garima Pulliam MCV (RBC) [Entitic vol] 90.4 fL Normal 80.0-94.0 The [facility] Comment on above: Performed By: #### C BC ####[facility] Eluapkfeit5844 [place] [phone]. Garima Pulliam MONO # 0.6 103/ul Normal 0.3-0.8 The [facility] Comment on above: Performed By: #### C BC ####[facility] Mhgejyqxgk9090 [place] [phone]. Garima Pulliam Monocytes/100 WBC (Bld) 5.8 % Normal 1.7-12.0 [facility] Comment on above: Performed By: #### C BC ####[facility] Xavyrlqkcy2703 [place] [phone]. Garima Pulliam NEUT # 7.8 103/ul Critically high 1.4-6.5 [facility] Comment on above: Performed By: #### C BC ####[facility] Mjsatznydr8779 [place] [phone]. Garima Pulliam Neutrophils/100 WBC (Bld) 72.4 % Normal 43.0-75.0 The [facility] Comment on above: Performed By: #### C BC ####[facility] Iolnqapdch2495 [place] [phone]. Garima Pulliam Platelet mean volume (Bld) [Entitic vol] 8.7 fL Critically low 9.5-13.5 [facility] Comment on above: Performed By: #### C BC ####[facility] Zedaxilbah[address] [place] [address]Dr. Garima Pulliam PLT 184 103/ul Normal 150-450 The [facility] Comment on above: Performed By: #### C BC ####[facility] Ohezyxokpc1410 [place] [phone]. Garima Pulliam RBC 4.80 106/ul Normal 4.70-6.10 The [facility] Comment on above: Performed By: #### C BC ####[facility] Chsvlspbnl9720 [place] [phone]. Garima Pulliam WBC 10.8 103/ul Normal 4.0-11.0 The [facility] Comment on above: Performed By: #### C BC ####[facility] Gyntyssthe[address] [place], [place] [id number]. Garima Pulliam [facility]24 SARS-CoV-2 (COVID-19) RNA MARIE+probe Ql (Unsp spec) Not detected Normal NOT DETECTED The [facility] Comment on above: Result Comment: When diagnostic [...] for this test is supported by the [place] of Health and Human Service's declaration that [...] be used). Performed By: #### C VDTB ####[facility] [address]vnitq[address] [place], [place] [address]Dr. Garima Pulliam INFLUENZA A AND B AGon 11-20 [facility] SEE BELOW Normal [facility] Comment on above: Result Comment: Nega tive for Flu A protein angiten. Infection due to Flu A cannot be ruled out. Flu A angiten in the sample may be below the detection limit of the test. Performed By: #### I NFLUAB ####[facility] Yvelfvcnso[address] [place], [place] [address]Dr. Garima Pulliam INFLUBNEG SEE BELOW Normal The [facility] Comment on above: Result Comment: Nega tive for Flu B protein antigen. Infection due to Flu B cannot be ruled out. Flu B antigen in the sample may be below the detection limit of the test. Performed By: #### I NFLUAB ####[facility] [address]jx[address]uhw[address] [place], [place] [address]Dr. Garima Pulliam INFLUENZA A AG Negative Normal NEGATIVE SEE COMMENT The [facility] Comment on above: Performed By: #### I NFLUAB ####[facility] Kx[address]psut[address] [place], [place] [address]DrAdalberto Pulliam INFLUENZA B AG Negative Normal NEGATIVE SEE COMMENT [facility] Comment on above: Performed By: #### I NFLUAB ####[facility] [address]dltmcwk4[address] [place], [place] [address]Dr. Garima Pulliam PROF CHEM 8 (BAS METB)on Anion gap [Moles/Vol] 8.2 mmol/L Normal [facility] Comment on above: Performed By: #### B MP, HSTROPN, BNP ####[facility] Dlrmnehjmk7174 [place] [address]Dr. Garima Pullima Calcium [Mass/Vol] 8.7 mg/dL Normal 8.5-10.[address] [facility] Comment on above: Performed By: #### B MP, HSTROPN, BNP ####[facility] Vwpegjzvjv6266 [place] [address]Dr. Garima Pulliam Chloride [Moles/Vol] 103 mmol/L Normal 98-107 [facility] Comment on above: Performed By: #### B MP, HSTROPN, BNP ####[facility] Qnmpkzzmmu5708 [place] [address]Dr. Garima Pulliam CO2 [Moles/Vol] 29.4 mmol/L Normal 21.0-32.0 [facility] Comment on above: Performed By: #### B MP, HSTROPN, BNP ####[facility] [address]qemgkg[address] [place], [place] [address]Dr. Garima Pulliam Creatinine [Mass/Vol] 0.69 mg/dL Critically low 0.70-1.30 [facility] Comment on above: Performed By: #### B MP, HSTROPN, BNP ####[facility] [address]aw[address]aukv[address] [place], [place] [address]Dr. Garima Pulliam EGFR-AF BURUNDIAN >60 Normal >=60 [facility] Comment on above: Performed By: #### B MP, HSTROPN, BNP ####[facility] Csdfowfsgh[address] [place], [place] [address]Dr. Garima Pulliam EGFR-NON AF BURUNDIAN >60 Normal >=60 [facility] Comment on above: Performed By: #### B MP, HSTROPN, BNP ####[facility] Wcxkcxzpym8093 [place] [address]Dr. Garima Pulliam Glucose [Mass/Vol] 209 mg/dL Critically high 74-106 [facility] Comment on above: Performed By: #### B MP, HSTROPN, BNP ####[facility] Fhvnqzahnv3459 [place] [address]Dr. Garima Pulliam Potassium [Moles/Vol] 3.6 mmol/L Normal 3.5-5.1 [facility] Comment on above: Performed By: #### B MP, HSTROPN, BNP ####[facility] Cbufcubqwa2518 [place] [address]Dr. Garima Pulliam Sodium [Moles/Vol] 137 mmol/L Normal 136-[address] [facility] Comment on above: Performed By: #### B MP, HSTROPN, BNP ####[facility] Chqarwfbjn8045 [place] [address]Dr. Garima Pulliam Urea nitrogen [Mass/Vol] 11.0 mg/dL Normal 7.0-18.0 [facility] Comment on above: Performed By: #### B MP, HSTROPN, BNP ####[facility] Axmruobjxb8737 [place] [address]Dr. Garima Pulliam Urea nitrogen/Creatinine [Mass ratio] 15.9 mg/mg Normal [facility] Comment on above: Performed By: #### B MP, HSTROPN, BNP ####[facility] Hiuduhvmho9468 [place] [address]Dr. Garima Pulliam TROPONIN, HIGH SENSITIVITYon 11-20-2022 HSTROP 8.7 pg/mL Normal 4.0-76.1 [facility] Comment on above: Result Comment: CUT- OFF POINTS HAVE BEEN ESTABLISHED BASED ON THE FOURTH UNIVERSAL DEFINITIONS OF MYOCARDIALINFARCTION. THE UPPER REFERENCE LIMIT (URL) OF TROPONIN, DEFINED THE 99TH PERCENTILE OFcTnI DISTRIBUTION IN A REFERENCE POPULATION, HAS BEEN CONFIRMED THE DECISION THRESHOLDFOR MD DIAGNOSIS. Performed By: #### B MP, HSTROPN, BNP ####[facility] Bxcpuxuhjm5870 [place] [address]Dr. Garima Pulliam XR CHEST 1 Von 11-20-2022 XR CHEST 1 V Normal The [facility] XR CHEST 1 Von 10-02-2022 XR CHEST 1 V Normal The [facility] BNPon 09-29-2022 Natriuretic peptide B (Bld) [Mass/Vol] 107.0 pg/mL Normal <=900.0 The [facility] Comment on above: Performed By: #### C MP, BNP, CMADM ####[facility] Nnfaymarsw6964 [place] [address]Dr. Garima Pulliam CARDIAC NASH ADMITon 022 CK [Catalytic activity/Vol] 190 U/L Normal 39-308 The [facility] Comment on above: Performed By: #### C MP, BNP, CMADM ####[facility] Tcuftqtale3519 [place] [address]Dr. Garima Pulliam CK.MB [Mass/Vol] 11.11 ng/mL Critically high <=3.60 Th e [facility] Comment on above: Performed By: #### C MP, BNP, CMADM ####[facility] Ez[address]rlx[address] [place], [place] [address]Dr. Garima Pulliam HSTROP 11.8 pg/mL Normal 4.0-76.1 The [facility] Comment on above: Result Comment: CUT- OFF POINTS HAVE BEEN ESTABLISHED BASED ON THE FOURTH UNIVERSAL DEFINITIONS OF MYOCARDIALINFARCTION. THE UPPER REFERENCE LIMIT (URL) OF TROPONIN, DEFINED THE 99TH PERCENTILE OFcTnI DISTRIBUTION IN A REFERENCE POPULATION, HAS BEEN CONFIRMED THE DECISION THRESHOLDFOR MD DIAGNOSIS. Performed By: #### C MP, BNP, CMADM ####[facility] Aedtggnkrl7774 [place] [address]Dr. Garima Pulliam DORIS 133 ng/mL Critically high 16-96 The [facility] Comment on above: Performed By: #### C MP, BNP, CMADM ####[facility] Udrajpnjbi8586 [place] [address]Dr. Garima Pulliam CBC AUTO DIFFon 09-29-2022 BASO # 0.0 103/ul Normal 0.0-0.1 The [facility] Comment on above: Performed By: #### C BC ####[facility] Acgxugnoda1349 [place] [address]Dr. Garima Pulliam Basophils/100 WBC (Bld) 0.2 % Normal 0.2-2.0 The [facility] Comment on above: Performed By: #### C BC ####[facility] Ldwkgwtych5366 [place] [address]Dr. Garima Pulliam EO # 0.1 103/ul Normal 0.0-0.7 [facility] Comment on above: Performed By: #### C BC ####[facility] Ofzvrtbkoa8056 [place] [address]Dr. Garima Pulliam Eosinophils/100 WBC (Bld) 1.4 % Normal 0.9-7.0 [facility] Comment on above: Performed By: #### C BC ####[facility] [address]wazv[address] [place], [place] [address]Dr. Garima Pulliam Erythrocyte distribution width (RBC) [Ratio] 13.7 % Normal 11.0-15.0 [facility] Comment on above: Performed By: #### C BC ####[facility] [address]cttqck[address] [place], [place] [address]Dr. Garima Pulliam Hematocrit (Bld) [Volume fraction] 45.4 % Normal 42.0-54.0 [facility] Comment on above: Performed By: #### C BC ####[facility] [address]qgqtbs[address] [place], [place] [address]Dr. Garima Pulliam Hemoglobin (Bld) [Mass/Vol] 14.8 g/dL Normal 14.0-18.0 The [facility] Comment on above: Performed By: #### C BC ####[facility] [address]vfcew[address] [place], [place] [address]Dr. Garima Heraclio IG # 0.04 10e3/ul Critically high 0.00-0.03 [facility] Comment on above: Performed By: #### C BC ####[facility] Ursvrrpcmz[address] [place], [place] [address]Dr. Chapisrenu Pulliam IG % 0.5 % Normal 0.0-0.5 The [facility] Comment on above: Performed By: #### C BC ####[facility] K[address]gehyrcu[address] [place], [place] [address]DrAdalberto Pulliam LYMPH # 1.1 103/ul Critically low 1.2-3.8 The [facility] Comment on above: Performed By: #### C BC ####[facility] Ybmchghfvz1838 [place] [address]DrAdalberto Pulliam Lymphocytes/100 WBC (Bld) 12.7 % Critically low 20.5-60.0 [facility] Comment on above: Performed By: #### C BC ####[facility] Vmzfvidckv0594 [place] [phone] Pulliam MANUAL DIFF REQ NO Normal [facility] Comment on above: Performed By: #### C BC ####[facility] Thxoixbpcw5729 [place] [phone] Pulliam MCH (RBC) [Entitic mass] 30.0 pg Normal 25.9-34.0 The [facility] Comment on above: Performed By: #### C BC ####[facility] [address]ugcetlv[address] [place], [place] [address]Dr. Garima Pulliam MCHC (RBC) [Mass/Vol] 32.6 g/dL Normal 29.9-35.2 [facility] Comment on above: Performed By: #### C BC ####[facility] [address] [place], [place] [id number] Pulliam MCV (RBC) [Entitic vol] 91.9 fL Normal 80.0-94.0 The [facility] Comment on above: Performed By: #### C BC ####[facility] Gfztunomoi5397 [place] [address]DrAdalberto Pulliam MONO # 0.4 103/ul Normal 0.3-0.8 The [facility] Comment on above: Performed By: #### C BC ####[facility] E[address]jgpi[address] [place], [place] [address]DrAadlberto Pulliam Monocytes/100 WBC (Bld) 4.8 % Normal 1.7-12.0 The [facility] Comment on above: Performed By: #### C BC ####[facility] X[address]belmxg[address] [place], [place] [address]DrAdalberto Pulliam NEUT # 7.1 103/ul Critically high 1.4-6.5 The [facility] Comment on above: Performed By: #### C BC ####[facility] Fyfsskayqt4278 [place] [phone]. Garima Pulliam Neutrophils/100 WBC (Bld) 80.4 % Critically high 43.0-75.0 [facility] Comment on above: Performed By: #### C BC ####[facility] Xbahyzglyn9297 [place] [phone]. Garima Pulliam Platelet mean volume (Bld) [Entitic vol] 9.1 fL Critically low 9.5-13.5 [facility] Comment on above: Performed By: #### C BC ####[facility] Oukwxdrjkn3977 [place] [phone]. Garima Pulliam PLT 200 103/ul Normal 150-450 The [facility] Comment on above: Performed By: #### C BC ####[facility] Ikigjwpnwt0673 [place] [phone]. Garima Pulliam RBC 4.94 106/ul Normal 4.70-6.10 The [facility] Comment on above: Performed By: #### C BC ####[facility] Ufktptwnul0701 [place] [phone]. Garima Pulliam WBC 8.9 103/ul Normal 4.0-11.0 The [facility] Comment on above: Performed By: #### C BC ####[facility] Zkvyigiygz6533 [place] [phone]. Garima Pulliam [facility]on SARS-CoV-2 (COVID-19) RNA MARIE+probe Ql (Unsp spec) Not detected Normal NOT DETECTED The [facility] Comment on above: Result Comment: When diagnostic [...] for this test is supported by the [place] of Health and Human Service's declaration that [...] be used). Performed By: #### C VDTBH ####[facility] Zhddhzwvbu0480 [place] [address]Dr. Garima Pulliam LACTATE/LACTIC ACIDon 2021 Lactate [Moles/Vol] 1.7 mmol/L Normal 0.4-1.9 [facility] Comment on above: Performed By: #### L ACT ####[facility] [address]lyq[address] [place], [place] [address]Dr. Garima Pulliam PROF 14(COMP METB)on 022 Albumin [Mass/Vol] 3.8 g/dL Normal 3.4-5.[address] [facility] Comment on above: Performed By: #### C MP, BNP, CMADM ####[facility] Mkbxmluxgm5943 [place] [address]Dr. Garima Pulliam Albumin/Globulin [Mass ratio] 1.5 {ratio} Normal [facility] Comment on above: Performed By: #### C MP, BNP, CMADM ####[facility] Nqcpfzzwue4139 [place] [address]Dr. Garima Pulliam ALP [Catalytic activity/Vol] 62 U/L Normal 46-116 The [facility] Comment on above: Performed By: #### C MP, BNP, CMADM ####[facility] Rpkvogifvb2627 [place] [address]Dr. Garima Pluliam ALT [Catalytic activity/Vol] 37 U/L Normal 16-63 [facility] Comment on above: Performed By: #### C MP, BNP, CMADM ####[facility] Edmstzlkik2167 [place] [address]Dr. Garima Pulliam Anion gap [Moles/Vol] 8.0 mmol/L Normal [facility] Comment on above: Performed By: #### C MP, BNP, CMADM ####[facility] Oweeacbnsd6019 [place] [address]Dr. Garima Pulliam AST [Catalytic activity/Vol] 20 U/L Normal 15-37 The [facility] Comment on above: Performed By: #### C MP, BNP, CMADM ####[facility] Oyhonxezca4621 [place] [address]Dr. Garima Pulliam Bilirubin [Mass/Vol] 0.6 mg/dL Normal 0.2-1.0 The [facility] Comment on above: Performed By: #### C MP, BNP, CMADM ####[facility] Lhjaadaeth[address] [place], [place] [address]Dr. Garima Pulliam Calcium [Mass/Vol] 9.1 mg/dL Normal 8.5-10.1 [facility] Comment on above: Performed By: #### C MP, BNP, CMADM ####[facility] [address]ilispmcgu[address] [place], [place] [address]Dr. Garima Pulliam Chloride [Moles/Vol] 103 mmol/L Normal 98-107 The [facility] Comment on above: Performed By: #### C MP, BNP, CMADM ####[facility] Eitgnackfp5637 [place] [address]Dr. Garima Pulliam CO2 [Moles/Vol] 31.8 mmol/L Normal 21.0-32.0 [facility] Comment on above: Performed By: #### C MP, BNP, CMADM ####[facility] [address]ispyv[address] [place], [place] [address]Dr. Garima Pulliam Creatinine [Mass/Vol] 0.63 mg/dL Critically low 0.70-1.30 The [facility] Comment on above: Performed By: #### C MP, BNP, CMADM ####[facility] Gqywiiacnc9722 [place] [address]Dr. Garima Pulliam EGFR-AF BURUNDIAN >60 Normal >=60 [facility] Comment on above: Performed By: #### C MP, BNP, CMADM ####[facility] Yrlqkgrwnv7267 [place] [phone]. Garima Pulliam EGFR-NON AF [place]UR[place]DIAN >60 Normal >=60 The [facility] Comment on above: Performed By: #### C MP, BNP, CMADM ####[facility] Haobazgnpl9231 [place] [address]Dr. Garima Pulliam Globulin (S) [Mass/Vol] 2.6 g/dL Normal The [facility] Comment on above: Performed By: #### C MP, BNP, CMADM ####[facility] Mrgskgnydf4701 [place] [address]Dr. Garima Pulliam Glucose [Mass/Vol] 103 mg/dL Normal 74-106 [facility] Comment on above: Performed By: #### C MP, BNP, CMADM ####[facility] Iuljfdrsml6231 [place] [address]Dr. Garima Pulliam Potassium [Moles/Vol] 3.8 mmol/L Normal 3.5-5.1 The [facility] Comment on above: Performed By: #### C MP, BNP, CMADM ####[facility] Esnamajxnn6791 [place] [address]Dr. Garima Pulliam Protein [Mass/Vol] 6.4 g/dL Normal 6.4-8.2 [facility] Comment on above: Performed By: #### C MP, BNP, CMADM ####[facility] Ljhpqybasm8269 [place] [address]Dr. Garima Pulliam Sodium [Moles/Vol] 139 mmol/L Normal 136-145 [facility] Comment on above: Performed By: #### C MP, BNP, CMADM ####[facility] Jjkuacexge8280 [place] [address]Dr. Garima Pulliam Urea nitrogen [Mass/Vol] 7.0 mg/dL Normal 7.0-18.0 The [facility] Comment on above: Performed By: #### C MP, BNP, CMADM ####[facility] Iwagbcvafu4023 [place] [address]Dr. Garima Pulliam Urea nitrogen/Creatinine [Mass ratio] 11.1 mg/mg Normal The [facility] Comment on above: Performed By: #### C MP, BNP, CMADM ####[facility] Cmzgktgrwd7265 [place] [address]Dr. Garima Heraclio PROTIMEon 09-29-2022 INR Coag (PPP) [Relative time] 1.14 {INR} Normal The [facility] Comment on above: Performed By: #### P T, PTT ####[facility] [address]hvx[address] [place], [place] [address]Dr. Garima Pulliam INR GUIDELINES SEE BELOW Normal The [facility] Comment on above: Result Comment: WESLEY RED INR: 2.0 - 3.0 CONDITIONS NOT LISTED BELOW 2.5 - 3.5 FOR PROSTHETIC HEART VALVE REPLACEMENT 2.5 - 3.5 RECURRENT THROMBOSIS Performed By: #### P T, PTT ####[facility] [facility] [address]bibyrv[address] [place], [place] [address]Dr. Garima Pulliam PT Coag (PPP) [Time] 12.2 s Critically high 9.0-11.6 The [facility] Comment on above: Performed By: #### P T, PTT ####[facility] Ajrrkattdm38[address] [place], [place] [address]Dr. Garima Pulliam PTTon 09-29-2022 aPTT Coag (Bld) [Time] 29.3 s Normal 22.3-36.2 The [facility] Comment on above: Performed By: #### P T, PTT ####[facility] Pphjhowcyb9[address] [place], [place] [address]Dr. Garima Pulliam XR CHEST 1 Von 09-29-2022 XR CHEST 1 V Normal The [facility] CBC AUTO DIFFon 09-26-2022 BASO # 0.0 103/ul Normal 0.0-0.1 The [facility] Comment on above: Performed By: #### C BC ####[facility] Cphumutsfs201[address] [place], [place] [address]Dr. Garima Pulliam Basophils/100 WBC (Bld) 0.2 % Normal 0.2-2.0 The [facility] Comment on above: Performed By: #### C BC ####[facility] Fueupwlkfz[address] [place] [address]Dr. Garima Pulliam EO # 0.1 103/ul Normal 0.0-0.7 The [facility] Comment on above: Performed By: #### C BC ####[facility] Rmsfyfzpxy8133 [place] [address]Dr. Garima Pulliam Eosinophils/100 WBC (Bld) 1.0 % Normal 0.9-7.0 The [facility] Comment on above: Performed By: #### C BC ####[facility] [address]owczqh[address] [place], [place] [address]Dr. Garima Pulliam Erythrocyte distribution width (RBC) [Ratio] 13.4 % Normal 11.0-15.0 The [facility] Comment on above: Performed By: #### C BC ####[facility] [address]ds[address]qfln[address] [place], [place] [address]Dr. Garima Pulliam Hematocrit (Bld) [Volume fraction] 46.3 % Normal 42.0-54.0 The [facility] Comment on above: Performed By: #### C BC ####[facility] Hx[address]rekhuv[address] [place], [place] [address]Dr. Garima Pulliam Hemoglobin (Bld) [Mass/Vol] 15.3 g/dL Normal 14.0-18.0 The [facility] Comment on above: Performed By: #### C BC ####[facility] Hxmfofysqh9[address] [place], [place] [address]Dr. Garima Pulliam IG # 0.05 10e3/ul Critically high 0.00-0.03 The [facility] Comment on above: Performed By: #### C BC ####[facility] Skhxkwkizv[address] [place], [place] [address]Dr. Garima Pulliam IG % 0.4 % Normal 0.0-0.5 The [facility] Comment on above: Performed By: #### C BC ####[facility] Ubxcjgtrmk7387[address] [place], [place] [address]Dr. Garima Pulliam LYMPH # 1.7 103/ul Normal 1.2-3.8 The [facility] Comment on above: Performed By: #### C BC ####[facility] Jyxphekosw05[address] [place] [address]Dr. Chapisrenu Pulliam Lymphocytes/100 WBC (Bld) 12.7 % Critically low 20.5-60.0 The [facility] Comment on above: Performed By: #### C BC ####[facility] Rrkaewsfiq86[address] [place] [address]Dr. Garima Pulliam MANUAL DIFF REQ NO Normal The [facility] Comment on above: Performed By: #### C BC ####[facility] Srytflhlss7853 [place] [address]Dr. Chapisrenu Pulliam MCH (RBC) [Entitic mass] 30.1 pg Normal 25.9-34.0 The [facility] Comment on above: Performed By: #### C BC ####[facility] Daxzjvivpt213[address] [place], [place] [address]Dr. Garima Pulliam MCHC (RBC) [Mass/Vol] 33.0 g/dL Normal 29.9-35.2 The [facility] Comment on above: Performed By: #### C BC ####[facility] Xsozylorec[address] [place], [place] [address]Dr. Garima Pulliam MCV (RBC) [Entitic vol] 91.1 fL Normal 80.0-94.0 The [facility] Comment on above: Performed By: #### C BC ####[facility] E[address]yrvemp7[address] [place], [place] [address]Dr. Garima Pulliam MONO # 0.9 103/ul Critically high 0.3-0.8 The [facility] Comment on above: Performed By: #### C BC ####[facility] [address]vqrpdimsk17[address] [place], [place] [address]Dr. Garima Pulliam Monocytes/100 WBC (Bld) 7.0 % Normal 1.7-12.0 The [facility] Comment on above: Performed By: #### C BC ####[facility] [address]wrjfarm[address] [place], [place] [address]Dr. Garima Pulliam NEUT # 10.4 103/ul Critically high 1.4-6.5 The [facility] Comment on above: Performed By: #### C BC ####[facility] Mjxhjxkoay58[address] [place] [address]Dr. Garima Pulliam Neutrophils/100 WBC (Bld) 78.7 % Critically high 43.0-75.0 The [facility] Comment on above: Performed By: #### C BC ####[facility] Myiiorhwim1574 [place] [address]Dr. Garima Pulliam Platelet mean volume (Bld) [Entitic vol] 8.9 fL Critically low 9.5-13.5 The [facility] Comment on above: Performed By: #### C BC ####[facility] Hyevzjsbrv1614 [place] [address]Dr. Garima Pulliam PLT 195 103/ul Normal 150-450 [facility] Comment on above: Performed By: #### C BC ####[facility] Czxwvseipy4837 [place] [address]Dr. Garima Pulliam RBC 5.08 106/ul Normal 4.70-6.10 The [facility] Comment on above: Performed By: #### C BC ####[facility] Najhjpdoxh2195 [place] [address]Dr. Garima Pulliam WBC 13.2 103/ul Critically high 4.0-11.0 The [facility] Comment on above: Performed By: #### C BC ####[facility] Dvfzwcbxxd3236 [place] [address]Dr. Garima Pulliam PROF 14(COMP METB)on 022 Albumin [Mass/Vol] 3.5 g/dL Normal 3.4-5.[address] [facility] Comment on above: Performed By: #### C DAVID HSTROPN ####[facility] Sskgrewytx25[address] [place] [id number]. Garima Pulliam Albumin/Globulin [Mass ratio] 1.2 {ratio} Normal The [facility] Comment on above: Performed By: #### C DAVID HSTROPN ####[facility] Rxnosawcih9102 [place] [phone]. Garima Pulliam ALP [Catalytic activity/Vol] 71 U/L Normal 46-116 The [facility] Comment on above: Performed By: #### C MP, HSTROPN ####[facility] Vtmzkroemj5174 [place] [address]Dr. Garima Pulliam ALT [Catalytic activity/Vol] 37 U/L Normal 16-63 The [facility] Comment on above: Performed By: #### C MP, HSTROPN ####[facility] Jdrlybekvt5173 [place] [address]Dr. Garima Pulliam Anion gap [Moles/Vol] 4.8 mmol/L Normal [facility] Comment on above: Performed By: #### C MP, HSTROPN ####[facility] Tgtfjwtnaj5777 [place] [address]Dr. Garima Pulliam AST [Catalytic activity/Vol] 21 U/L Normal 15-37 [facility] Comment on above: Performed By: #### C DAVID, HSTROPN ####[facility] [address]hnbiifqe[address] [place], [place] [address]Dr. Garima Pulliam Bilirubin [Mass/Vol] 0.3 mg/dL Normal 0.2-1.0 [facility] Comment on above: Performed By: #### C DAVID, HSTROPN ####[facility] Hfrrwoeclz[address] [place], [place] [address]Dr. Garima Pulliam Calcium [Mass/Vol] 8.9 mg/dL Normal 8.5-10.[address] [facility] Comment on above: Performed By: #### C DAVID, HSTROPN ####[facility] Kwyxkxjhld9635 [place] [address]Dr. Garima Pulliam Chloride [Moles/Vol] 106 mmol/L Normal 98-107 The [facility] Comment on above: Performed By: #### C DAVID, HSTROPN ####[facility] [address]fqcfds[address] [place], [place] [address]Dr. Garima Pulliam CO2 [Moles/Vol] 29.8 mmol/L Normal 21.0-32.0 [facility] Comment on above: Performed By: #### C MP, HSTROPN ####[facility] Mjqcrozrbo[address] [place], [place] [address]Dr. Garima Pulliam Creatinine [Mass/Vol] 0.68 mg/dL Critically low 0.70-1.30 [facility] Comment on above: Performed By: #### C DAVID, HSTROPN ####[facility] Hibxrwzshb[address] [place] [address]Dr. Garima Pulliam EGFR-AF BURUNDIAN >60 Normal >=60 [facility] Comment on above: Performed By: #### C DAVID, HSTROPN ####[facility] Iiehykemgk9438 [place] [address]Dr. Garima Pulliam EGFR-NON AF BURUNDIAN >60 Normal >=60 [facility] Comment on above: Performed By: #### C DAVID, HSTROPN ####[facility] Fteoduxpab3551 [place] [address]Dr. Garima Pulliam Globulin (S) [Mass/Vol] 2.8 g/dL Normal [facility] Comment on above: Performed By: #### C DAVID, HSTROPN ####[facility] Tidbhnxmoi[address] [place] [address]Dr. Garima Pulliam Glucose [Mass/Vol] 133 mg/dL Critically high 74-106 [facility] Comment on above: Performed By: #### C DAVID, HSTROPN ####[facility] Gaorogbrmf2568 [place] [address]Dr. Garima Pulliam Potassium [Moles/Vol] 3.6 mmol/L Normal 3.5-5.1 [facility] Comment on above: Performed By: #### C DAVID, HSTROPN ####[facility] Qvghuktixs4058 [place] [address]Dr. Garima Pulliam Protein [Mass/Vol] 6.3 g/dL Critically low 6.4-8.2 [facility] Comment on above: Performed By: #### C DAVID, HSTROPN ####[facility] Jhdvhllulx9703 [place] [address]Dr. Garima Pulliam Sodium [Moles/Vol] 137 mmol/L Normal 136-[address] [facility] Comment on above: Performed By: #### C DAVID, HSTROPN ####[facility] Bzrgsjiljt2243 [place] [phone]. Garima Pulliam Urea nitrogen [Mass/Vol] 15.0 mg/dL Normal 7.0-18.0 The [facility] Comment on above: Performed By: #### C MP, HSTROPN ####[facility] Lflbyuzogb5934 [place] [phone]. Chapisrenu Pulliam Urea nitrogen/Creatinine [Mass ratio] 22.1 mg/mg Normal The [facility] Comment on above: Performed By: #### C MP, HSTROPN ####[facility] Zjbilofpce7191 [place] [phone]. Garima Heraclio TROPONIN, HIGH SENSITIVITYon 09-26-2022 HSTROP 12.8 pg/mL Normal 4.0-76.1 The [facility] Comment on above: Result Comment: CUT- OFF POINTS HAVE BEEN ESTABLISHED BASED ON THE FOURTH UNIVERSAL DEFINITIONS OF MYOCARDIALINFARCTION. THE UPPER REFERENCE LIMIT (URL) OF TROPONIN, DEFINED THE 99TH PERCENTILE OFcTnI DISTRIBUTION IN A REFERENCE POPULATION, HAS BEEN CONFIRMED THE DECISION THRESHOLDFOR MD DIAGNOSIS. Performed By: #### C MP, HSTROPN ####[facility] Zculuoghqt0003 [place] [address]Dr. Garima Heraclio XR CHEST 1 Von 09-26-2022 XR CHEST 1 V Normal The [facility] XR CHEST 1 Von 09-16-2022 XR CHEST 1 V Normal The [facility] CBC AUTO DIFFon 09-15-2022 BASO # 0.0 103/ul Normal 0.0-0.1 The [facility] Comment on above: Performed By: #### C BC ####[facility] Sewgfzqskq4[address] [place] [phone]. Garima Heraclio Basophils/100 WBC (Bld) 0.1 % Critically low 0.2-2.0 The [facility] Comment on above: Performed By: #### C BC ####[facility] Rhcszuodrp0855 [place] [phone]. Chapisrenu Pulliam EO # 0.0 103/ul Normal 0.0-0.7 The [facility] Comment on above: Performed By: #### C BC ####[facility] Ajtspehfxp8181 [place] [phone]. Garima Pulliam Eosinophils/100 WBC (Bld) 0.1 % Critically low 0.9-7.0 [facility] Comment on above: Performed By: #### C BC ####[facility] Dnoqiszppu0889 [place] [address]Dr. Garima Pulliam Erythrocyte distribution width (RBC) [Ratio] 14.1 % Normal 11.0-15.0 [facility] Comment on above: Performed By: #### C BC ####[facility] Hwkpkkstji9[address] [place], [place] [address]Dr. Garima Pulliam Hematocrit (Bld) [Volume fraction] 46.1 % Normal 42.0-54.0 [facility] Comment on above: Performed By: #### C BC ####[facility] Yyxwdhijou[address] [place], [place] [address]Dr. Garima Pulliam Hemoglobin (Bld) [Mass/Vol] 15.0 g/dL Normal 14.0-18.0 [facility] Comment on above: Performed By: #### C BC ####[facility] Z[address]yeoekxcm7[address] [place], [place] [address]Dr. Garima Pulliam IG # 0.03 10e3/ul Normal 0.00-0.03 [facility] Comment on above: Performed By: #### C BC ####[facility] Twpsyvwhuw4860[address] [place], [place] [address]Dr. Garima Pulliam IG % 0.3 % Normal 0.0-0.5 The [facility] Comment on above: Performed By: #### C BC ####[facility] Cabudripsb4697[address] [place], [place] [address]Dr. Garima Pulliam LYMPH # 0.6 103/ul Critically low 1.2-3.8 The [facility] Comment on above: Performed By: #### C BC ####[facility] Cblkgputlt6065[address] [place], [place] [address]Dr. Garima Pulliam Lymphocytes/100 WBC (Bld) 5.8 % Critically low 20.5-60.0 [facility] Comment on above: Performed By: #### C BC ####[facility] Bheoxkicdv5194 [place] [phone]. Garima Pulliam MANUAL DIFF REQ NO Normal [facility] Comment on above: Performed By: #### C BC ####[facility] Puqacggbch6328 [place] [phone]. Garima Pulliam MCH (RBC) [Entitic mass] 30.2 pg Normal 25.9-34.0 [facility] Comment on above: Performed By: #### C BC ####[facility] Wgpezdofsy8654 [place] [phone]. Garima Pulliam MCHC (RBC) [Mass/Vol] 32.5 g/dL Normal 29.9-35.2 [facility] Comment on above: Performed By: #### C BC ####[facility] Nevmmyqnvm3298[address] [place], [place] [address]Dr. Garima Pulliam MCV (RBC) [Entitic vol] 92.8 fL Normal 80.0-94.0 [facility] Comment on above: Performed By: #### C BC ####[facility] V[address]bdmtu[address] [place], [place] [address]Dr. Garima Pulliam MONO # 0.3 103/ul Normal 0.3-0.8 [facility] Comment on above: Performed By: #### C BC ####[facility] Raomexfqrt8108 [place] [address]Dr. Garima Pulliam Monocytes/100 WBC (Bld) 3.2 % Normal 1.7-12.0 [facility] Comment on above: Performed By: #### C BC ####[facility] Vytjnrgwud[address] [place], [place] [address]Dr. Garima Pulliam NEUT # 9.8 103/ul Critically high 1.4-6.5 [facility] Comment on above: Performed By: #### C BC ####[facility] Vpllivqnvi[address] [place], [place] [address]Dr. Garima Pulliam Neutrophils/100 WBC (Bld) 90.5 % Critically high 43.0-75.0 [facility] Comment on above: Performed By: #### C BC ####[facility] Vursdsntkf3135 [place] [address]Dr. Garima Pulliam Platelet mean volume (Bld) [Entitic vol] 9.4 fL Critically low 9.5-13.5 [facility] Comment on above: Performed By: #### C BC ####[facility] Tgabqkgwtk4993 [place] [address]Dr. Garima Pulliam PLT 208 103/ul Normal 150-450 [facility] Comment on above: Performed By: #### C BC ####[facility] Vnxypvhmcx[address] [place], [place] [address]Dr. Garima Pulliam RBC 4.97 106/ul Normal 4.70-6.10 [facility] Comment on above: Performed By: #### C BC ####[facility] Liypidyrgr5367[address] [place], [place] [address]Dr. Garima Pulliam WBC 10.8 103/ul Normal 4.0-11.0 [facility] Comment on above: Performed By: #### C BC ####[facility] Ahikhutdyc88[address] [place], [place] [address]Dr. Garima Pulliam PROF 14(COMP METB)on 022 Albumin [Mass/Vol] 4.0 g/dL Normal 3.4-5.[address] [facility] Comment on above: Performed By: #### C MP ####[facility] Wpwwxgeums[address] [place], [place] [address]Dr. Garima Pulliam Albumin/Globulin [Mass ratio] 1.5 {ratio} Normal [facility] Comment on above: Performed By: #### C MP ####[facility] Y[address]qkxksas38[address] [place], [place] [address]Dr. Garima Pulliam ALP [Catalytic activity/Vol] 73 U/L Normal 46-116 The [facility] Comment on above: Performed By: #### C MP ####[facility] [address]ypdkptxc7[address] [place], [place] [address]Dr. Garima Pulliam ALT [Catalytic activity/Vol] 42 U/L Normal 16-63 [facility] Comment on above: Performed By: #### C MP ####[facility] Ityfqpayhl1425 [place] [phone]. Garima Pulliam Anion gap [Moles/Vol] 9.1 mmol/L Normal [facility] Comment on above: Performed By: #### C MP ####[facility] Xugthmmqpk2811 [place] [phone]. Garima Pulliam AST [Catalytic activity/Vol] 28 U/L Normal 15-37 The [facility] Comment on above: Performed By: #### C MP ####[facility] Beacabaqic3101 [place] [phone]. Garima Pulliam Bilirubin [Mass/Vol] 0.6 mg/dL Normal 0.2-1.0 [facility] Comment on above: Performed By: #### C MP ####[facility] Hgqiowynkn9604 [place] [address]Dr. Garima Pulliam Calcium [Mass/Vol] 8.6 mg/dL Normal 8.5-10.[address] [facility] Comment on above: Performed By: #### C MP ####[facility] Qyarikjtzk0830 [place] [address]Dr. Garima Pulliam Chloride [Moles/Vol] 105 mmol/L Normal 98-107 [facility] Comment on above: Performed By: #### C MP ####[facility] Mhvzadkxix3602 [place] [phone]. Garima Pulliam CO2 [Moles/Vol] 28.5 mmol/L Normal 21.0-32.0 [facility] Comment on above: Performed By: #### C MP ####[facility] Hbgbnxmrxt8604 [place] [phone]. Garima Pulliam Creatinine [Mass/Vol] 0.78 mg/dL Normal 0.70-1.30 The [facility] Comment on above: Performed By: #### C MP ####[facility] Fzvhpzzttb7505 [place] [phone]. Garima Heraclio EGFR-AF [place]UR[place]DI[place] >60 Normal >=60 [facility] Comment on above: Performed By: #### C MP ####[facility] Hjnjekkmvv0072 [place] [phone]. Garima Pulliam EGFR-NON AF [place] >60 Normal >=60 The [facility] Comment on above: Performed By: #### C MP ####[facility] Ghjrdxhfqy3598 [place] [address]Dr. Garima Pulliam Globulin (S) [Mass/Vol] 2.7 g/dL Normal [facility] Comment on above: Performed By: #### C MP ####[facility] Rpdendtfkg4103 [place] [address]Dr. Garima Pulliam Glucose [Mass/Vol] 220 mg/dL Critically high 74-106 [facility] Comment on above: Performed By: #### C MP ####[facility] Kqcghzhoxm[address] [place], [place] [address]Dr. Garima Pulliam Potassium [Moles/Vol] 3.6 mmol/L Normal 3.5-5.1 The [facility] Comment on above: Performed By: #### C MP ####[facility] Gwovnylabj[address] [place], [place] [address]Dr. Garima Pulliam Protein [Mass/Vol] 6.7 g/dL Normal 6.4-8.2 [facility] Comment on above: Performed By: #### C MP ####[facility] Urpgupcpwy4040[address] [place], [place] [address]Dr. Garima Pulliam Sodium [Moles/Vol] 139 mmol/L Normal 136-145 [facility] Comment on above: Performed By: #### C MP ####[facility] Izhqjarfxg26[address] [place], [place] [address]Dr. Garima Pulliam Urea nitrogen [Mass/Vol] 11.0 mg/dL Normal 7.0-18.0 The [facility] Comment on above: Performed By: #### C MP ####[facility] Laoqletvvu408[address] [place], [place] [address]Dr. Garima Pulliam Urea nitrogen/Creatinine [Mass ratio] 14.1 mg/mg Normal [facility] Comment on above: Performed By: #### C MP ####[facility] Kncdvnxhqf766[address] [place], [place] [address]Dr. Garima Pulliam CARDIAC NASH 3-6on 2 CK [Catalytic activity/Vol] 240 U/L Normal 39-308 [facility] Comment on above: Performed By: #### C MREP ####[facility] Cawxfxpapn5101 [place], [place] [address]Ar. Garima Pulliam CK.MB [Mass/Vol] 10.38 ng/mL Critically high <=3.60 [facility] Comment on above: Performed By: #### C MREP ####[facility] Algfzwonuw[address] [place] [phone]. Garima Pulliam HSTROP 18.5 pg/mL Normal 4.0-76.1 [facility] Comment on above: Result Comment: CUT- OFF POINTS HAVE BEEN ESTABLISHED BASED ON THE FOURTH UNIVERSAL DEFINITIONS OF MYOCARDIALINFARCTION. THE UPPER REFERENCE LIMIT (URL) OF TROPONIN, DEFINED THE 99TH PERCENTILE OFcTnI DISTRIBUTION IN A REFERENCE POPULATION, HAS BEEN CONFIRMED THE DECISION THRESHOLDFOR MD DIAGNOSIS. Performed By: #### C MREP ####[facility] Jntrexewys[address] [place] [phone]. Garima Pulliam CK [Catalytic activity/Vol] 257 U/L Normal 39-308 [facility] Comment on above: Performed By: #### C MREP ####[facility] Qzsuyusjmj4086 [place] [phone]. Garima Pulliam CK.MB [Mass/Vol] 9.89 ng/mL Critically high <=3.60 [facility] Comment on above: Performed By: #### C MREP ####[facility] Sffbsbtmqv4177 [place] [phone]. Garima Pulliam HSTROP 16.9 pg/mL Normal 4.0-76.1 [facility] Comment on above: Result Comment: CUT- OFF POINTS HAVE BEEN ESTABLISHED BASED ON THE FOURTH UNIVERSAL DEFINITIONS OF MYOCARDIALINFARCTION. THE UPPER REFERENCE LIMIT (URL) OF TROPONIN, DEFINED THE 99TH PERCENTILE OFcTnI DISTRIBUTION IN A REFERENCE POPULATION, HAS BEEN CONFIRMED THE DECISION THRESHOLDFOR MD DIAGNOSIS. Performed By: #### C MREP ####[facility] Unuamiocpd[address] [place], [place] [address]Dr. Garima Pulliam CBC AUTO DIFFon 09-13-2022 BASO # 0.0 103/ul Normal 0.0-0.1 [facility] Comment on above: Performed By: #### C BC ####[facility] [address] [place], [place] [address]Dr. Garima Heraclio Basophils/100 WBC (Bld) 0.1 % Critically low 0.2-2.0 The [facility] Comment on above: Performed By: #### C BC ####[facility] [address] [place], [place] [address]Dr. Garima Pulliam EO # 0.0 103/ul Normal 0.0-0.7 The [facility] Comment on above: Performed By: #### C BC ####[facility] [address]rjrbjt[address] [place], [place] [address]Dr. Chapisrenu Pulliam Eosinophils/100 WBC (Bld) 0.0 % Critically low 0.9-7.0 [facility] Comment on above: Performed By: #### C BC ####[facility] [address]farygjzgb[address] [place], [place] [address]Dr. Garima Pulliam Erythrocyte distribution width (RBC) [Ratio] 13.6 % Normal 11.0-15.0 [facility] Comment on above: Performed By: #### C BC ####[facility] [address] [place], [place] [address]Dr. Garima Pulliam Hematocrit (Bld) [Volume fraction] 48.2 % Normal 42.0-54.0 The [facility] Comment on above: Performed By: #### C BC ####[facility] Fsx[address]wcwe[address] [place], [place] [address]Dr. Garima Pulliam Hemoglobin (Bld) [Mass/Vol] 16.0 g/dL Normal 14.0-18.0 The [facility] Comment on above: Performed By: #### C BC ####[facility] Iv[address]xwynbaz[address] [place], [place] [address]Dr. Garima Pulliam IG # 0.02 10e3/ul Normal 0.00-0.03 The [facility] Comment on above: Performed By: #### C BC ####[facility] [address]ywihjj[address] [place] [phone]. Garima Pulliam IG % 0.3 % Normal 0.0-0.5 [facility] Comment on above: Performed By: #### C BC ####[facility] Fobbjfbuth[address] [place] [phone]. Garima Pulliam LYMPH # 0.5 103/ul Critically low 1.2-3.8 [facility] Comment on above: Performed By: #### C BC ####[facility] Zhsualrgch5284 [place] [phone]. Chapisrenu Pulliam Lymphocytes/100 WBC (Bld) 7.7 % Critically low 20.5-60.0 [facility] Comment on above: Performed By: #### C BC ####[facility] We[address]qrx[address] [place] [address]Dr. Garima Pulliam MANUAL DIFF REQ NO Normal [facility] Comment on above: Performed By: #### C BC ####[facility] O[address]wwjfsdc68[address] [place] [phone]. Garima Pulliam MCH (RBC) [Entitic mass] 30.6 pg Normal 25.9-34.0 [facility] Comment on above: Performed By: #### C BC ####[facility] Atmucleiuc[address] [place] [phone]. Garima Pulliam MCHC (RBC) [Mass/Vol] 33.2 g/dL Normal 29.9-35.2 [facility] Comment on above: Performed By: #### C BC ####[facility] Eduwonkvsr3[address] [place] [phone]. Garima Pulliam MCV (RBC) [Entitic vol] 92.2 fL Normal 80.0-94.0 The [facility] Comment on above: Performed By: #### C BC ####[facility] F[address]fiiaqkg[address] [place] [phone]. Garima Pulliam MONO # 0.0 103/ul Critically low 0.3-0.8 [facility] Comment on above: Performed By: #### C BC ####[facility] Qpnnvfzplw6[address] [place] [phone]. Garima Pulliam Monocytes/100 WBC (Bld) 0.4 % Critically low 1.7-12.0 [facility] Comment on above: Performed By: #### C BC ####[facility] Genlwuxbii4[address] [place] [phone]. Garima Pulliam NEUT # 6.2 103/ul Normal 1.4-6.5 [facility] Comment on above: Performed By: #### C BC ####[facility] Pdfjenetzz8163 [place] [address]Dr. Garima Pulliam Neutrophils/100 WBC (Bld) 91.5 % Critically high 43.0-75.0 [facility] Comment on above: Performed By: #### C BC ####[facility] K[address]zlwh[address] [place] [address]Dr. Garima Pulliam Platelet mean volume (Bld) [Entitic vol] 8.7 fL Critically low 9.5-13.5 [facility] Comment on above: Performed By: #### C BC ####[facility] [address] [place], [place] [address]Dr. Garima Pulliam PLT 179 103/ul Normal 150-450 [facility] Comment on above: Performed By: #### C BC ####[facility] Hfraolwwkl[address] [place] [address]Dr. Garima Pulliam RBC 5.23 106/ul Normal 4.70-6.10 The [facility] Comment on above: Performed By: #### C BC ####[facility] Bptbsaivrt5[address] [place] [phone]. Garima Pulliam WBC 6.7 103/ul Normal 4.0-11.0 The [facility] Comment on above: Performed By: #### C BC ####[facility] Z[address]rawubrp[address] [place], [place] [address]DrAdalberto Garima Heraclio PROF CHEM 8 (BAS METB)on Anion gap [Moles/Vol] 12.1 mmol/L Normal [facility] Comment on above: Performed By: #### B MP ####[facility] Yklgpevyrp[address] [place] [address]Dr. Garima Pulliam Calcium [Mass/Vol] 8.7 mg/dL Normal 8.5-10.[address] [facility] Comment on above: Performed By: #### B MP ####[facility] Cicalltbqe[address] [place] [address]Dr. Garima Pulliam Chloride [Moles/Vol] 105 mmol/L Normal 98-107 [facility] Comment on above: Performed By: #### B MP ####[facility] Yxwufhmjcs1604 [place] [address]Dr. Garima Pulliam CO2 [Moles/Vol] 25.5 mmol/L Normal 21.0-32.0 [facility] Comment on above: Performed By: #### B MP ####[facility] [address]fypgc[address] [place], [place] [address]Dr. Garima Pulliam Creatinine [Mass/Vol] 0.63 mg/dL Critically low 0.70-1.30 [facility] Comment on above: Performed By: #### B MP ####[facility] Eieqmfeuto[address] [place] [address]Dr. Garima Pulliam EGFR-AF BURUNDIAN >60 Normal >=60 [facility] Comment on above: Performed By: #### B MP ####[facility] Uivfctowhw[address] [place] [address]Dr. Garima Pulliam EGFR-NON AF BURUNDIAN >60 Normal >=60 [facility] Comment on above: Performed By: #### B MP ####[facility] Hdiqdwpvnu87[address] [place] [address]Dr. Garima Pulliam Glucose [Mass/Vol] 162 mg/dL Critically high 74-106 [facility] Comment on above: Performed By: #### B MP ####[facility] Rhoncjerwb8811 [place] [address]Dr. Garima Pulliam Potassium [Moles/Vol] 3.6 mmol/L Normal 3.5-5.1 [facility] Comment on above: Performed By: #### B MP ####[facility] Xbuklcdzzr2878 [place] [phone]. Garima Pulliam Sodium [Moles/Vol] 139 mmol/L Normal 136-[address] [facility] Comment on above: Performed By: #### B DAVID ####[facility] Rcrxwjxcdv67[address] [place] [phone]. Garima Heraclio Urea nitrogen [Mass/Vol] 9.0 mg/dL Normal 7.0-18.0 [facility] Comment on above: Performed By: #### B DAVID ####[facility] Pjfrhloqag8[address] [place] [phone]. Garima Pulliam Urea nitrogen/Creatinine [Mass ratio] 14.3 mg/mg Normal [facility] Comment on above: Performed By: #### B DAVID ####[facility] Fzdqqvficx3[address] [place] [address]Dr. Garima Pulliam CARDIAC NASH ADMITon 022 CK [Catalytic activity/Vol] 304 U/L Normal 39-308 [facility] Comment on above: Performed By: #### B NANCY HERNANDEZ ####[facility] Svjulglrrj[address] [place] [phone]. Garima Pulliam CK.MB [Mass/Vol] 11.81 ng/mL Critically high <=3.60 [facility] Comment on above: Performed By: #### B NANCY HERNANDEZ ####[facility] Lbwfenbehy[address] [place] [address]Dr. Garima Pulliam HSTROP 13.3 pg/mL Normal 4.0-76.1 [facility] Comment on above: Result Comment: CUT- OFF POINTS HAVE BEEN ESTABLISHED BASED ON THE FOURTH UNIVERSAL DEFINITIONS OF MYOCARDIALINFARCTION. THE UPPER REFERENCE LIMIT (URL) OF TROPONIN, DEFINED THE 99TH PERCENTILE OFcTnI DISTRIBUTION IN A REFERENCE POPULATION, HAS BEEN CONFIRMED THE DECISION THRESHOLDFOR MD DIAGNOSIS. Performed By: #### B DAVID, NANCY ####[facility] Ljeqnohrwk32[address] [place] [phone]. Garima Pulliam DORIS 133 ng/mL Critically high 16-96 [facility] Comment on above: Performed By: #### B ERVIN HERNANDEZDM ####[facility] Acbmrxapjt9424 [place] [phone]. Garima Heraclio CBC AUTO DIFFon 09-12-2022 BASO # 0.0 103/ul Normal 0.0-0.1 [facility] Comment on above: Performed By: #### C BC ####[facility] Dazftwdffj1772 [place] [phone]. Chapisrenu Pulliam Basophils/100 WBC (Bld) 0.2 % Normal 0.2-2.0 [facility] Comment on above: Performed By: #### C BC ####[facility] [address]wo[address]oz[address] [place], [place] [address]Dr. Chapisrenu Pulliam EO # 0.2 103/ul Normal 0.0-0.7 The [facility] Comment on above: Performed By: #### C BC ####[facility] [address]om[address]styj[address] [place], [place] [address]Dr. Chapisrenu Pulliam Eosinophils/100 WBC (Bld) 1.3 % Normal 0.9-7.0 The [facility] Comment on above: Performed By: #### C BC ####[facility] Y[address]lism[address] [place], [place] [address]Dr. Garima Heraclio Erythrocyte distribution width (RBC) [Ratio] 13.7 % Normal 11.0-15.0 [facility] Comment on above: Performed By: #### C BC ####[facility] Oddhivlgej[address] [place], [place] [address]Dr. Garima Pulliam Hematocrit (Bld) [Volume fraction] 46.4 % Normal 42.0-54.0 The [facility] Comment on above: Performed By: #### C BC ####[facility] [address]qenhngz[address] [place], [place] [address]Dr. Garima Heraclio Hemoglobin (Bld) [Mass/Vol] 15.7 g/dL Normal 14.0-18.0 The [facility] Comment on above: Performed By: #### C BC ####[facility] Nwtlnublpj[address] [place], [place] [address]Dr. Garima Pulliam IG # 0.04 10e3/ul Critically high 0.00-0.03 [facility] Comment on above: Performed By: #### C BC ####[facility] Ripnzbrhny45[address] [place] [phone] Garima Heraclio IG % 0.3 % Normal 0.0-0.5 [facility] Comment on above: Performed By: #### C BC ####[facility] Cxgeirsxqo[address] [place] [phone] Garima Heraclio LYMPH # 1.7 103/ul Normal 1.2-3.8 [facility] Comment on above: Performed By: #### C BC ####[facility] Oqpixlqjre6065 [place] [phone] Garima Heraclio Lymphocytes/100 WBC (Bld) 11.5 % Critically low 20.5-60.0 [facility] Comment on above: Performed By: #### C BC ####[facility] Crwtdjjkzh1154 [place] [address]DrAdalberto Chapisrenu Pulliam MANUAL DIFF REQ NO Normal [facility] Comment on above: Performed By: #### C BC ####[facility] Vlfsfzslax5781 [place] [phone] Garima Heraclio MCH (RBC) [Entitic mass] 31.0 pg Normal 25.9-34.0 [facility] Comment on above: Performed By: #### C BC ####[facility] Hhpbwbgain3461 [place] [phone] Garima Heraclio MCHC (RBC) [Mass/Vol] 33.8 g/dL Normal 29.9-35.2 [facility] Comment on above: Performed By: #### C BC ####[facility] Txidaaylzb9588 [place] [phone] Garima Heraclio MCV (RBC) [Entitic vol] 91.7 fL Normal 80.0-94.0 [facility] Comment on above: Performed By: #### C BC ####[facility] Rfvgqkbufb9799 [place] [phone] Pulliam MONO # 0.8 103/ul Normal 0.3-0.8 [facility] Comment on above: Performed By: #### C BC ####[facility] Xkjpcoxthg3272 [place] [phone]. Garima Pulliam Monocytes/100 WBC (Bld) 5.2 % Normal 1.7-12.0 [facility] Comment on above: Performed By: #### C BC ####[facility] Dvxyvrhtyf0595 [place] [phone]. Garima Pulliam NEUT # 11.7 103/ul Critically high 1.4-6.5 [facility] Comment on above: Performed By: #### C BC ####[facility] Fkghbkbzgk2456 [place] [phone]. Garima Pulliam Neutrophils/100 WBC (Bld) 81.5 % Critically high 43.0-75.0 [facility] Comment on above: Performed By: #### C BC ####[facility] Dwkxmbruoo7989 [place] [address]Dr. Garima Pulliam Platelet mean volume (Bld) [Entitic vol] 8.6 fL Critically low 9.5-13.5 The [facility] Comment on above: Performed By: #### C BC ####[facility] Bgxooyykps8052 [place] [address]Dr. Garima Pulliam PLT 191 103/ul Normal 150-450 [facility] Comment on above: Performed By: #### C BC ####[facility] Lxjuwtqkph3741 [place] [phone]. Garima Pulliam RBC 5.06 106/ul Normal 4.70-6.10 [facility] Comment on above: Performed By: #### C BC ####[facility] Caoqitkaym55[address] [place] [phone]. Garima Pulliam WBC 14.4 103/ul Critically high 4.0-11.0 [facility] Comment on above: Performed By: #### C BC ####[facility] Cdkxttgded8301 [place] [phone] Garima Pulliam [facility]24 SARS-CoV-2 (COVID-19) RNA MARIE+probe Ql (Unsp spec) Not detected Normal NOT DETECTED The [facility] Comment on above: Result Comment: When diagnostic [...] for this test is supported by the [place] [employer] of Health and Human Service's declaration that [...] be used). Performed By: #### C VDTBH ####[facility] Un[address]xmvhyxf[address] [place], [place] [address]Dr. Garima Pulliam LACTATE/LACTIC ACIDon 2021 Lactate [Moles/Vol] 1.0 mmol/L Normal 0.4-1.9 [facility] Comment on above: Performed By: #### L ACT ####[facility] Z[address]ozvj[address] [place], [place] [address]Dr. Garima Pulliam PROF CHEM 8 (BAS METB)on Anion gap [Moles/Vol] 11.6 mmol/L Normal [facility] Comment on above: Performed By: #### B MP, CMADM ####[facility] Ctrfduuong1296 [place] [address]Dr. Garima Pulliam Calcium [Mass/Vol] 9.2 mg/dL Normal 8.5-10.[address] [facility] Comment on above: Performed By: #### B MP, CMADM ####[facility] Djgnaqhduk22[address] [place] [address]Dr. Garima Pulliam Chloride [Moles/Vol] 105 mmol/L Normal 98-107 [facility] Comment on above: Performed By: #### B DAVID, CMADM ####[facility] Bgzwtwnzaz2870 [place] [phone]. Garima Pulliam CO2 [Moles/Vol] 25.9 mmol/L Normal 21.0-32.0 [facility] Comment on above: Performed By: #### B DAVID, CMADM ####[facility] Yysjpmzncg2767 [place] [address]Dr. Garima Pulliam Creatinine [Mass/Vol] 0.72 mg/dL Normal 0.70-1.30 [facility] Comment on above: Performed By: #### B DAVID, CMADM ####[facility] Fvuuhylxrf1648 [place] [address]Dr. Garima Pulliam EGFR-AF BURUNDIAN >60 Normal >=60 [facility] Comment on above: Performed By: #### B DAVID, CMADM ####[facility] Xmjgnqdrqy9962 [place] [address]Dr. Garima Heraclio EGFR-NON AF BURUNDIAN >60 Normal >=60 [facility] Comment on above: Performed By: #### B DAVID, CMADM ####[facility] Xyqthbscib0772 [place] [address]Dr. Garima Pulliam Glucose [Mass/Vol] 111 mg/dL Critically high 74-106 [facility] Comment on above: Performed By: #### B DAVID, CMADM ####[facility] Ztjtxqqkmi5381 [place] [address]Dr. Garima Pulliam Potassium [Moles/Vol] 3.5 mmol/L Normal 3.5-5.1 [facility] Comment on above: Performed By: #### B DAVID, CMADM ####[facility] Fwapmjxdgd7698 [place] [address]Dr. Garima Pulliam Sodium [Moles/Vol] 139 mmol/L Normal 136-[address] [facility] Comment on above: Performed By: #### B DAVID, CMADM ####[facility] Shvnwovssi7201 [place] [address]Dr. Garima Pulliam Urea nitrogen [Mass/Vol] 7.0 mg/dL Normal 7.0-18.0 [facility] Comment on above: Performed By: #### B NANCY HERNANDEZ ####[facility] Fsbjwkiusz2380 [place], [place] [address]Of. Garima Pulliam Urea nitrogen/Creatinine [Mass ratio] 9.7 mg/mg Normal [facility] Comment on above: Performed By: #### B DAVID, CMADM ####[facility] Kdsbyglvde3307 [place], [place] [address]Wk. Garima Pulliam XR CHEST 1 Von 09-12-2022 XR CHEST 1 V Normal [facility] Encounters Encounter Date Encounter Type Care Provider [...] Facility:H1 Payers Date Payer Category Payer Unknown [id number] 1960 Medicaid [id number] 1960 Unknown [id number] 1960 Unknown [id number] 1954 Unknown [id number] 2.16.84 0.1.004333.3.579.2.593 1954 Unknown [id number] 2.16.84 0.1.826951.3.579.2.593 1954 Unknown [id number] 2.16.84 0.1.330161.3.579.2.593 1954 Unknown [id number] 2.16.84 0.1.328897.3.579.2.593 1954 Unknown [id number] 2.16.84 0.1.158275.3.579.2.593 1954 Unknown [id number] 2.16.84 0.1.257271.3.579.2.593 1954 Unknown [id number] 2.16.84 0.1.596729.3.579.2.593 1954 Unknown [id number] 2.16.84 0.1.333938.3.579.2.593 1954 Unknown [id number] 2.16.84 0.1.948403.3.579.2.593 1954 Unknown [id number] 2.16.84 0.1.620743.3.579.2.593 1954 Unknown [id number] 2.16.84 0.1.050937.3.579.2.593 1954 Unknown [id number] 2.16.84 0.1.447625.3.579.2.593 1954 Unknown [id number] 2.16.84 0.1.735174.3.579.2.593 1954 Unknown [id number] 2.16.84 0.1.747492.3.579.2.593 1954 Unknown [id number] 2.16.84 0.1.899516.3.579.2.593 1954 Unknown [id number] 2.16.84 0.1.908957.3.579.2.593 1954 Unknown [id number] 2.16.84 0.1.628894.3.579.2.593 1954 Unknown [id number] 2.16.84 0.1.805308.3.579.2.593 1954 Unknown [id number] 2.16.84 0.1.491789.3.579.2.593 1954 Unknown [id number] 2.16.84 0.1.630185.3.579.2.593 Summary Purpose Family History No Family History Records Found Advance Directives No Advanced Directives Records Found Additional Source Comments (unrecognized sect ion and content) No Status Records Found INFORMATION SOURCE (unrecogn ized section and content) DATE CREATED AUTHOR 04/08/2023 [facility] FOR RECORDS PERTAINING TO PATIENTS [...] BE BASED ON THE PRIMARY CLINICAL RECORDS. [facility] [employer] [facility]. provides no warranty or guarantee of the accuracy or completeness of information in this document.
--- NOTE | 2023-12-17 07:12 | ED_ITS ---
HPI - General Adult General Chief complaint: Shortness of Breath/Dyspnea Stated complaint: SOB Time Seen by Provider: 12/17/23 06:45 Source: patient Mode of arrival: Wheelchair Limitations: physical limitation History of Present Illness HPI narrative: FPC smoker with COPD who came in because he is out of his albuterol MDI. He came in 2 nights ago because he was havign an acute flare - worse shortness of breath at rest and slightly increased cough. Only wanted a neb treatment and went better after he went home. Now he returns. He told me that he does not feel worse and does not want a lot of testing or anything . he asks for a refill of his albuterol MDI and a short course of steroids. No fever or chills. No GI or symptoms. No chest pain. No shortness of breath at rest. He is not scheduled to see his PCP until January. He called the office 2 days ago and again yesterday but has not gotten a call back. Related Data Home Medications Medication Instructions Recorded Confirmed losartan 25 mg tablet (Cozaar) 25 mg PO DAILY 10/22/23 11/02/23 omeprazole 20 mg capsule,delayed 20 mg PO DAILY 10/22/23 11/02/23 release albuterol sulfate 2.5 mg/3 mL 2.5 mg inhalation Q6H 11/02/23 11/02/23 (0.083 %) solution for nebulization Previous Rx's Medication Instructions Recorded albuterol sulfate 90 mcg/actuation 2 inh inhalation Q6H PRN shortness 12/17/23 aerosol inhaler of breath or wheezing #8.5 grams azithromycin 250 mg tablet See Rx Instructions PO .COMPLEX #6 12/17/23 tabs prednisone 20 mg tablet 20 mg PO DAILY #9 tabs 12/17/23 Allergies Allergy/AdvReac Type Severity Reaction Status Date / Time No Known Drug Allergies Allergy Verified 11/24/23 16:17 [facility] Medical History (Updated 12/17/23 @ 07:17 by Rigoberto Patterson) RLL pneumonia ?J18.9 - Pneumonia, unspecified organism (ICD-10) COPD (chronic obstructive pulmonary disease) ?J44.9 - Chronic obstructive pulmonary disease, unspecified (ICD-10) Social History Smoking status: Current every day smoker Exam Narrative Exam Narrative: Nurses notes and vital signs reviewed and patient is not hypoxic. afebrile General: Well-appearing and in no apparent distress. Skin: Warm, dry, no pallor noted. No rash. Head: Normocephalic, atraumatic. Neck: Supple, non-tender. Eye: Pupils are equal, round and EOMI. No scleral icterus. Ears, Nose, Mouth, and Throat: TM are clear, no posterior oropharynx erythema or nasal mucosal hypertrophy, uvula is mid-line Oral mucosa is moist Cardiovascular: Regular Rate and Rhythm without murmur, gallop or rub. Respiratory: No accessory muscle use or respiratory distress. Lungs with scattered rhonchi throughout. Very faint expiratory wheezes noted. No rales. Musculoskeletal: normal ROM, no calf or popliteal tenderness, no lower extremity edema/swelling Neurological: A&O x4. No cranial nerve dysfunction observed. No truncal ataxia. Moves all extremities. Sensation intact. Psychiatric: Cooperative and interactive. Normal mood and affect. Constitutional Vital Signs, click to edit/add: Last Vital Signs Temp 98.1 F 12/17/23 06:44 Pulse 72 12/17/23 06:44 Resp 18 12/17/23 06:44 BP 181/87 H 12/17/23 06:44 Pulse Ox 94 L 12/17/23 06:56 O2 Del Method Room Air 12/17/23 06:56 Course Vital Signs Vital signs: Vital Signs Temperature 98.1 F 12/17/23 06:44 Pulse Rate 72 12/17/23 06:44 Respiratory Rate 18 12/17/23 06:44 Blood Pressure 181/87 H 12/17/23 06:44 Pulse Oximetry 94 L 12/17/23 06:44 Oxygen Delivery Method Room Air 12/17/23 06:44 Temperature 98.1 F 12/17/23 06:44 Pulse Rate 72 12/17/23 06:44 Respiratory Rate 18 12/17/23 06:44 Blood Pressure 181/87 H 12/17/23 06:44 Pulse Oximetry 94 L 12/17/23 06:56 Oxygen Delivery Method Room Air 12/17/23 06:56 Medical Decision Making MDM Narrative Medical decision making narrative: Will refill the patient's albuterol Rx and also prescribed short prednisone course and an antibiotics for acute COPD flare. He declines offer for chest xr and additional testing. PCP follow up as scheduled. ED return if he worsens. He tld me, I know myself and I will come back if I need to. Discharge Plan Discharge Chief Complaint: Shortness of Breath/Dyspnea Clinical Impression: Acute exacerbation of chronic obstructive pulmonary disease (COPD) Patient Disposition: Home, Self-Care Time of Disposition Decision: 07:17 Prescriptions / Home Meds: New prednisone 20 mg tablet 20 mg PO DAILY Qty: 9 0RF Rx Instructions: 40mg daily for 3 days then 20mg daily for 3 more days azithromycin 250 mg tablet See Rx Instructions .ROUTE .COMPLEX Qty: 6 0RF Rx Instructions: For 250 mg dose pack: take 500 mg today (day 1), then 250 mg for 4 days (days 2-5) albuterol sulfate 90 mcg/actuation HFA aerosol inhaler 2 inh inhalation Q6H PRN (Reason: shortness of breath or wheezing) Qty: 8.5 2RF No Action losartan [Cozaar] 25 mg tablet 25 mg PO DAILY omeprazole 20 mg capsule,delayed release(DR/EC) 20 mg PO DAILY albuterol sulfate 2.5 mg /3 mL (0.083 %) solution for nebulization 2.5 mg inhalation Q6H Instructions: COPD (Chronic Obstructive Pulmonary Disease) (ED) Stand Alone Forms: Portal Instructions Referrals: Physician,Non-Staff, MD [Primary Care Provider] - 1 week
[2023-12-17 07:41] VITALS: BP 169/83; PULSE 65; RESP 18; O2SAT 96
[2023-12-17 07:48] VITALS: PULSE 62
[2023-12-17] MEDS: IPRATROPIUM/ALBUTEROL SULFATE 3 ML AMPUL.NEB IH (07:51)
== END 2023-12-17 07:58 | disposition home or self-care (01) ==
PROVIDERS: Emergency Provider Emergency Medicine
DX: J44.1 Chronic obstructive pulmonary disease with (acute) exacerbation (principal); Z79.899 Other long term (current) drug therapy; F17.210 Nicotine dependence, cigarettes, uncomplicated; Z87.01 Personal history of pneumonia (recurrent)
CPT/HCPCS: 94640; 99283

== ENCOUNTER 2023-12-24 20:09 | Emergency (ER) | payer MEDICARE, SELFPAY ==
[2023-12-24] VITALS (16 sets, daily range): BP systolic 160–193; BP diastolic 90–118; PULSE 80–97; RESP 12–28; TEMP 36.7; O2SAT 89–96; BMI 24.9
--- OUTSIDE RECORDS SUMMARY | 2023-12-24 20:22 | XMS_ITS | CCD ---
Author Name Unknown Address [address] [facility] [address] [place] [address] Organization [facility] Care Team Providers Care Teletype Mechanic Name Role Phone REQUEST, DR NONE LISTED [...] [employer] Unavailable CABALLERO ., DR SEBAS Parkre Admitting Unavailable CABALLERO ., DR SEBAS Parker [...] Unavailable Zieber, Rui Consulting Unavailable KATKO, DEMARCUS Cuellar [employer] Unavailable REQUEST, DR NONE LISTED Primary [...] Facility (1 source) Penicillin Drug Allergy [facility] Repository Problems Active Problems Problem Classification [...] Episodic Other aftercare (1 source) Other intermediate manager (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 Garima Pulliam Basophils/100 WBC (Bld) 0.3 % Normal 0.2-2.0 [facility] Comment on above: Performed By: #### C BC ####[facility] Qaepnvdddt8084 [place], [place] [address]IbAdalberto Pulliam EO # 0.3 103/ul Normal 0.0-0.7 [facility] Comment on above: Performed By: #### C BC ####[facility] Oy[address]cjf[address] [place] [id number]. Garima Pulliam Eosinophils/100 WBC (Bld) 2.8 % Normal 0.9-7.0 [facility] Comment on above: Performed By: #### C BC ####[facility] [address]qnrdjhcu15[address] [place] [address]Dr. Garima Pulliam Erythrocyte distribution width (RBC) [Ratio] 13.4 % Normal 11.0-15.0 [facility] Comment on above: Performed By: #### C BC ####[facility] Tilqsekdjn[address] [place], [place] [address]Dr. Garima Pulliam Hematocrit (Bld) [Volume fraction] 45.7 % Normal 42.0-54.0 [facility] Comment on above: Performed By: #### C BC ####[facility] Isykbmyxor[address] [place], [place] [address]Dr. Garima Pulliam Hemoglobin (Bld) [Mass/Vol] 15.2 g/dL Normal 14.0-18.0 [facility] Comment on above: Performed By: #### C BC ####[facility] Sdmmhlndja[address] [place], [place] [address]Dr. Garima Pulliam IG # 0.02 10e3/ul Normal 0.00-0.03 [facility] Comment on above: Performed By: #### C BC ####[facility] Iolyqlogan[address] [place], [place] [address]Dr. Garima Pulliam IG % 0.2 % Normal 0.0-0.5 [facility] Comment on above: Performed By: #### C BC ####[facility] Vcgaqilvus[address] [place], [place] [address]Dr. Garima Pulliam LYMPH # 2.1 103/ul Normal 1.2-3.8 [facility] Comment on above: Performed By: #### C BC ####[facility] Lprmncufoc[address] [place], [place] [address]Dr. Garima Pulliam Lymphocytes/100 WBC (Bld) 23.7 % Normal 20.5-60.0 [facility] Comment on above: Performed By: #### C BC ####[facility] Jzcnmefvpv0240 [place] [id number]. Garima Pulliam MANUAL DIFF REQ NO Normal [facility] Comment on above: Performed By: #### C BC ####[facility] Pxiehdjhqs2792 [place] [id number]. Garima Pulliam MCH (RBC) [Entitic mass] 30.4 pg Normal 25.9-34.0 [facility] Comment on above: Performed By: #### C BC ####[facility] Sgagmzznzz[address] [place], [place] [address]Dr. Garima Pulliam MCHC (RBC) [Mass/Vol] 33.3 g/dL Normal 29.9-35.2 [facility] Comment on above: Performed By: #### C BC ####[facility] Nqpkobkfjb[address] [place], [place] [address]Dr. Garima Pulliam MCV (RBC) [Entitic vol] 91.4 fL Normal 80.0-94.0 [facility] Comment on above: Performed By: #### C BC ####[facility] Eoivlolaau[address] [place], [place] [address]Dr. Garima Pulliam MONO # 0.7 103/ul Normal 0.3-0.8 [facility] Comment on above: Performed By: #### C BC ####[facility] Mgdgqnnycn5894[address] [place], [place] [address]Dr. Chapisrenu Pulliam Monocytes/100 WBC (Bld) 8.3 % Normal 1.7-12.0 [facility] Comment on above: Performed By: #### C BC ####[facility] Dlyynngrcl[address] [place], [place] [address]Dr. Garima Pulliam NEUT # 5.8 103/ul Normal 1.4-6.5 [facility] Comment on above: Performed By: #### C BC ####[facility] Wjnuuzlobz[address] [place], [place] [address]Dr. Garima Pulliam Neutrophils/100 WBC (Bld) 64.7 % Normal 43.0-75.0 [facility] Comment on above: Performed By: #### C BC ####[facility] Oxglwithad1533 [place] [id number]. Garima Pulliam Platelet mean volume (Bld) [Entitic vol] 8.6 fL Critically low 9.5-13.5 [facility] Comment on above: Performed By: #### C BC ####[facility] J[address]etzjnw[address] [place] [address]Dr. Garima Pulliam PLT 230 103/ul Normal 150-450 [facility] Comment on above: Performed By: #### C BC ####[facility] Deeyzcdgyg3761 [place] [address]Dr. Garima Pulliam RBC 5.00 106/ul Normal 4.70-6.10 [facility] Comment on above: Performed By: #### C BC ####[facility] Clzjndmrim8845 [place] [address]Dr. Garima Pulliam WBC 9.0 103/ul Normal 4.0-11.0 [facility] Comment on above: Performed By: #### C BC ####[facility] Qxemknxppc14[address] [place], [place] [address]Dr. Garima Pulliam MAGNESIUMon 04-04-2023 Magnesium [Mass/Vol] 1.8 mg/dL Normal 1.8-2.4 [facility] Comment on above: Performed By: #### M G ####[facility] Wvwyqtxebo17[address] [place], [place] [address]Dr. Garima Pulliam PROF 14(COMP METB)on 023 Albumin [Mass/Vol] 3.8 g/dL Normal 3.4-5.0 [facility] Comment on above: Performed By: #### C MP ####[facility] Tidkriijcq24[address] [place], [place] [address]Dr. Garima Pulliam Albumin/Globulin [Mass ratio] 1.2 {ratio} Normal [facility] Comment on above: Performed By: #### C MP ####[facility] Hzmusbzcvq3510 [place] [address]Dr. Garima Pulliam ALP [Catalytic activity/Vol] 84 U/L Normal 46-116 [facility] Comment on above: Performed By: #### C MP ####[facility] Zwfibcjgfd0899 [place] [address]Dr. Garima Pulliam ALT [Catalytic activity/Vol] 31 U/L Normal 16-63 [facility] Comment on above: Performed By: #### C MP ####[facility] Vidneqeift4154 [place] [address]Dr. Garima Pulliam Anion gap [Moles/Vol] 12.2 mmol/L Normal [facility] Comment on above: Performed By: #### C MP ####[facility] Wkhnqifuxo0506 [place] [address]Dr. Garima Pulliam AST [Catalytic activity/Vol] 23 U/L Normal 15-37 [facility] Comment on above: Performed By: #### C MP ####[facility] Xwclssgldx[address] [place], [place] [address]Dr. Garima Pulliam Bilirubin [Mass/Vol] 0.5 mg/dL Normal 0.2-1.0 [facility] Comment on above: Performed By: #### C MP ####[facility] Afoomyyqdk[address] [place], [place] [address]Dr. Garima Pulliam Calcium [Mass/Vol] 9.2 mg/dL Normal 8.5-10.1 [facility] Comment on above: Performed By: #### C MP ####[facility] Gqavrihphd[address] [place], [place] [address]Dr. Garima Pulliam Chloride [Moles/Vol] 103 mmol/L Normal 98-107 [facility] Comment on above: Performed By: #### C MP ####[facility] Yekqonstyg[address] [place], [place] [address]Dr. Garima Pulliam CO2 [Moles/Vol] 28.5 mmol/L Normal 21.0-32.0 [facility] Comment on above: Performed By: #### C MP ####[facility] Nqjq[address]oyoc[address] [place], [place] [address]Dr. Garima Pulliam Creatinine [Mass/Vol] 0.74 mg/dL Normal 0.70-1.30 [facility] Comment on above: Performed By: #### C MP ####[facility] Gdtkfozhcv280[address] [place] [address]Dr. Garima Pulliam EGFR-AF TUVALUAN >60 Normal >=60 [facility] Comment on above: Performed By: #### C MP ####[facility] Cu[address]wkuk[address] [place] [address]Dr. Garima Pulliam EGFR-NON AF TUVALUAN >60 Normal >=60 [facility] Comment on above: Performed By: #### C MP ####[facility] Jp[address]hcyete7039 [place] [address]Dr. Garima Pulliam Globulin (S) [Mass/Vol] 3.1 g/dL Normal [facility] Comment on above: Performed By: #### C MP ####[facility] Kxvvzgcxbb0157 [place] [address]Dr. Garima Pulliam Glucose [Mass/Vol] 93 mg/dL Normal 74-106 [facility] Comment on above: Performed By: #### C MP ####[facility] Saskigouuz[address] [place] [address]Dr. Garima Pulliam Potassium [Moles/Vol] 3.7 mmol/L Normal 3.5-5.1 [facility] Comment on above: Performed By: #### C MP ####[facility] Xpqqrcmruv4298 [place] [address]Dr. Garima Pulliam Protein [Mass/Vol] 6.9 g/dL Normal 6.4-8.2 [facility] Comment on above: Performed By: #### C MP ####[facility] Pujdhawsjp8464 [place] [address]Dr. Garima Pulliam Sodium [Moles/Vol] 140 mmol/L Normal 136-145 [facility] Comment on above: Performed By: #### C MP ####[facility] Wufzoblext2987 [place] [address]Dr. Garima Pulliam Urea nitrogen [Mass/Vol] 8.0 mg/dL Normal 7.0-18.0 [facility] Comment on above: Performed By: #### C MP ####[facility] Srpmojmmof0917 [place] [address]Dr. Garima Pulliam Urea nitrogen/Creatinine [Mass ratio] 10.8 mg/mg Normal [facility] Comment on above: Performed By: #### C MP ####[facility] Bzd[address]xywyv9190 [place] [address]Dr. Garima Pulliam AMMONIAon 03-30-2023 Ammonia (P) [Moles/Vol] 11 umol/L Normal 11-32 [facility] Comment on above: Performed By: #### A MM ####[facility] Yweqmoqxro[address] [place], [place] [address]Dr. Chapisrenu Pulliam CARDIAC NASH ADMITon 023 CK [Catalytic activity/Vol] 232 U/L Normal 39-308 [facility] Comment on above: Performed By: #### C DAVID, CMADM ####[facility] Gjjlghmazx[address] [place], [place] [address]Dr. Chapisrenu Pulliam CK.MB [Mass/Vol] 4.83 ng/mL Critically high <=3.60 [facility] Comment on above: Performed By: #### C DAVID, CMADM ####[facility] Jkmicjlbcb[address] [place], [place] [address]Dr. Garima Pulliam HSTROP 10.5 pg/mL Normal 4.0-76.1 [facility] Comment on above: Result Comment: CUT- OFF POINTS HAVE BEEN ESTABLISHED BASED ON THE FOURTH UNIVERSAL DEFINITIONS OF MYOCARDIALINFARCTION. THE UPPER REFERENCE LIMIT (URL) OF TROPONIN, DEFINED THE 99TH PERCENTILE OFcTnI DISTRIBUTION IN A REFERENCE POPULATION, HAS BEEN CONFIRMED THE DECISION THRESHOLDFOR MD DIAGNOSIS. Performed By: #### C DAVID, CMADM ####[facility] R[address]oulhdths[address] [place] [address]Dr. Chapisrenu Pulliam DORIS 79 ng/mL Normal 16-96 [facility] Comment on above: Performed By: #### C DAVID, CMADM ####[facility] Hvspqswtfr[address] [place], [place] [address]Dr. Chapisrenu Pulliam CBC AUTO DIFFon 03-30-2023 BASO # 0.0 103/ul Normal 0.0-0.1 [facility] Comment on above: Performed By: #### C BC ####[facility] Epyvakvddp6137 [place] [address]Dr. Garima Pulliam Basophils/100 WBC (Bld) 0.1 % Critically low 0.2-2.0 [facility] Comment on above: Performed By: #### C BC ####[facility] Thxcneexpo[address] [place], [place] [address]Dr. Garima Pulliam EO # 0.3 103/ul Normal 0.0-0.7 [facility] Comment on above: Performed By: #### C BC ####[facility] Wthvvysuxj70[address] [place], [place] [address]Dr. Garima Pulliam Eosinophils/100 WBC (Bld) 3.3 % Normal 0.9-7.0 [facility] Comment on above: Performed By: #### C BC ####[facility] Xnlheylwts[address] [place], [place] [address]Dr. Garima Pulliam Erythrocyte distribution width (RBC) [Ratio] 13.5 % Normal 11.0-15.0 [facility] Comment on above: Performed By: #### C BC ####[facility] Zjvoaikqfr[address] [place], [place] [address]Dr. Garima Pulliam Hematocrit (Bld) [Volume fraction] 42.9 % Normal 42.0-54.0 [facility] Comment on above: Performed By: #### C BC ####[facility] Ktausemsew[address] [place], [place] [address]Dr. Garima Pulliam Hemoglobin (Bld) [Mass/Vol] 13.9 g/dL Critically low 14.0-18.0 [facility] Comment on above: Performed By: #### C BC ####[facility] Psdrakyytn[address] [place], [place] [address]Dr. Graima Pulliam IG # 0.01 10e3/ul Normal 0.00-0.03 [facility] Comment on above: Performed By: #### C BC ####[facility] [address]wchrdsq[address] [place], [place] [address]Dr. Garima Pulliam IG % 0.1 % Normal 0.0-0.5 [facility] Comment on above: Performed By: #### C BC ####[facility] Lxgnjgitwh2225 [place] [address]Dr. Garima Pulliam LYMPH # 1.7 103/ul Normal 1.2-3.8 [facility] Comment on above: Performed By: #### C BC ####[facility] Jsaylviovw7027 [place] [address]Dr. Garima Pulliam Lymphocytes/100 WBC (Bld) 22.8 % Normal 20.5-60.0 [facility] Comment on above: Performed By: #### C BC ####[facility] Tqxdzuvzcx3910 [place] [address]Dr. Garima Pulliam MANUAL DIFF REQ NO Normal [facility] Comment on above: Performed By: #### C BC ####[facility] Gfjafggvae9077 [place] [address]Dr. Garima Pulliam MCH (RBC) [Entitic mass] 30.5 pg Normal 25.9-34.0 [facility] Comment on above: Performed By: #### C BC ####[facility] Bgopybbkfb7224 [place] [address]Dr. Garima Pulliam MCHC (RBC) [Mass/Vol] 32.4 g/dL Normal 29.9-35.2 [facility] Comment on above: Performed By: #### C BC ####[facility] Vruznhqhlp8667 [place] [address]Dr. Garima Pulliam MCV (RBC) [Entitic vol] 94.1 fL Critically high 80.0-94.0 [facility] Comment on above: Performed By: #### C BC ####[facility] Gxduqzfany6447 [place] [address]Dr. Garima Pulliam MONO # 0.7 103/ul Normal 0.3-0.8 [facility] Comment on above: Performed By: #### C BC ####[facility] Mjfeqekfrp4213 [place] [address]Dr. Garima Pulliam Monocytes/100 WBC (Bld) 8.6 % Normal 1.7-12.0 [facility] Comment on above: Performed By: #### C BC ####[facility] Qyzdzyxrwg4052 [place] [address]Dr. Garima Pulliam NEUT # 4.9 103/ul Normal 1.4-6.5 [facility] Comment on above: Performed By: #### C BC ####[facility] Owzkbsxgii0235 [place] [address]Dr. Garima Pulliam Neutrophils/100 WBC (Bld) 65.1 % Normal 43.0-75.0 [facility] Comment on above: Performed By: #### C BC ####[facility] Pshjqmtbsr3663 [place] [address]Dr. Garima Pulliam Platelet mean volume (Bld) [Entitic vol] 8.5 fL Critically low 9.5-13.5 [facility] Comment on above: Performed By: #### C BC ####[facility] Bsqulsfhne33[address] [place] [address]Dr. Garima Pulliam PLT 219 103/ul Normal 150-450 [facility] Comment on above: Performed By: #### C BC ####[facility] Kpapshtnyi5769 [place] [address]Dr. Garima Pulliam RBC 4.56 106/ul Critically low 4.70-6.10 [facility] Comment on above: Performed By: #### C BC ####[facility] Jxlveneiwi3230 [place] [address]Dr. Garima Pulliam WBC 7.6 103/ul Normal 4.0-11.0 [facility] Comment on above: Performed By: #### C BC ####[facility] Inzpihdops9265 [place] [address]Dr. Garima Pulliam LACTATE/LACTIC ACIDon 2022 Lactate [Moles/Vol] 1.2 mmol/L Normal 0.4-2.0 [facility] Comment on above: Performed By: #### L ACT ####[facility] Dmphahpwvp0399 [place] [address]Dr. Garima Pulliam MAGNESIUMon 03-30-2023 Magnesium [Mass/Vol] 1.8 mg/dL Normal 1.8-2.4 [facility] Comment on above: Performed By: #### M G ####[facility] Wczabmszwd50[address] [place] [address]Dr. Garima Pulliam PROF 14(COMP METB)on 023 Albumin [Mass/Vol] 3.5 g/dL Normal 3.4-5.0 [facility] Comment on above: Performed By: #### C DAVID, NANCY ####[facility] Dffmaublss7315 [place] [address]Dr. Garima Pulliam Albumin/Globulin [Mass ratio] 1.2 {ratio} Normal [facility] Comment on above: Performed By: #### C NANCY HERNANDEZ ####[facility] Bopprdvent9476 [place] [address]Dr. Garima Pulliam ALP [Catalytic activity/Vol] 85 U/L Normal 46-116 [facility] Comment on above: Performed By: #### Ethan HERNANDEZ, NANCY ####[facility] Quwsfegpft5270 [place] [address]Dr. Garima Pulliam ALT [Catalytic activity/Vol] 29 U/L Normal 16-63 [facility] Comment on above: Performed By: #### NANCY Long MP ####[facility] Sgkvewfrpw7091 [place] [address]Dr. Garima Pulliam Anion gap [Moles/Vol] 8.0 mmol/L Normal [facility] Comment on above: Performed By: #### C DAVID, NANCY ####[facility] Wyjujoyvda9947 [place] [address]Dr. Garima Pulliam AST [Catalytic activity/Vol] 18 U/L Normal 15-37 [facility] Comment on above: Performed By: #### C DAVID, NANCY ####[facility] Miuqsaeute7490 [place] [address]Dr. Garima Pulliam Bilirubin [Mass/Vol] 0.4 mg/dL Normal 0.2-1.0 [facility] Comment on above: Performed By: #### NANCY Long MP ####[facility] Ikdsuplnby7479 [place] [address]Dr. Garima Pulliam Calcium [Mass/Vol] 8.8 mg/dL Normal 8.5-10.1 [facility] Comment on above: Performed By: #### C DAVID, NANCY ####[facility] Vqviqnvwww8744 [place] [address]Dr. Garima Pulliam Chloride [Moles/Vol] 108 mmol/L Critically high 98-107 [facility] Comment on above: Performed By: #### C DAVID, NANCY ####[facility] Sbmwkxqytf8483 [place] [address]Dr. Garima Pulliam CO2 [Moles/Vol] 29.6 mmol/L Normal 21.0-32.0 [facility] Comment on above: Performed By: #### C DAVID, NANCY ####[facility] Kfmgcwwjha6568 [place] [address]Dr. Garima Pulliam Creatinine [Mass/Vol] 0.77 mg/dL Normal 0.70-1.30 [facility] Comment on above: Performed By: #### C DAVID, NANCY ####[facility] Zwgacsiost4169 [place] [address]Dr. Garima Pulliam EGFR-AF TUVALUAN >60 Normal >=60 [facility] Comment on above: Performed By: #### C DAVID, NANCY ####[facility] Yphcwptczn9288 [place] [address]Dr. Garima Pulliam EGFR-NON AF TUVALUAN >60 Normal >=60 [facility] Comment on above: Performed By: #### C DAVID, NANCY ####[facility] Fllntridro8373 [place] [address]Dr. Garima Pulliam Globulin (S) [Mass/Vol] 2.8 g/dL Normal [facility] Comment on above: Performed By: #### C DAVID, NANCY ####[facility] Bxkdysxcbl2965 [place] [address]Dr. Garima Pulliam Glucose [Mass/Vol] 207 mg/dL Critically high 74-106 [facility] Comment on above: Performed By: #### C DAVID, NANCY ####[facility] Ppciuywtdz9071 [place] [address]Dr. Garima Pulliam Potassium [Moles/Vol] 4.6 mmol/L Normal 3.5-5.1 [facility] Comment on above: Performed By: #### C DAVID, CMADM ####[facility] Jzcdkbndch2270 [place] [address]Dr. Garima Pulliam Protein [Mass/Vol] 6.3 g/dL Critically low 6.4-8.2 [facility] Comment on above: Performed By: #### C DAIVD, CMADM ####[facility] Klltmbxqxf3744 [place] [address]Dr. Garima Pulliam Sodium [Moles/Vol] 141 mmol/L Normal 136-145 [facility] Comment on above: Performed By: #### C DAVID, CMADM ####[facility] Btozcqvpwi3667 [place] [address]Dr. Chapisrenu Pulliam Urea nitrogen [Mass/Vol] 9.0 mg/dL Normal 7.0-18.0 [facility] Comment on above: Performed By: #### C DAVID, CMADM ####[facility] Hxulqtfgwe5782 [place] [address]Dr. Garima Pulliam Urea nitrogen/Creatinine [Mass ratio] 11.7 mg/mg Normal [facility] Comment on above: Performed By: #### C DAVID, CMADM ####[facility] Lrcliycpac8478 [place] [address]Dr. Chapisrenu Pulliam XR CHEST 1 Von 03-30-2023 XR CHEST 1 V Normal [facility] BNPon 03-27-2023 Natriuretic peptide B (Bld) [Mass/Vol] 251.0 pg/mL Normal <=900.0 [facility] Comment on above: Performed By: #### C MP, BNP, LIPID ####[facility] Xymbtnseme698[address] [place], [place] [address]Dr. Garima Heraclio GLYCOHEMOGLOBIN A1Con 2022 ADA RECOMMENDATION SEE BELOW Normal [facility] Comment on above: Result Comment: ADA RECOMMENDED LIMIT 4.0 - 6.0 ADA THERAPEUTIC TARGET < 7.0 ACTION SUGGESTED > 7.0 Performed By: #### A 1C ####[facility] Thpbfnrdsm5905 [place] [address]Dr. Garima Pulliam Glucose [Mass/Vol] 180 mg/dL Normal [facility] Comment on above: Performed By: #### A 1C ####[facility] Lmvjvplijz6140 [place] [address]Dr. Garima Pulliam HbA1c (Bld) [Mass fraction] 7.9 % Critically high 4.5-6.2 [facility] Comment on above: Performed By: #### A 1C ####[facility] Wswnswpyak7[address] [place], [place] [address]Dr. Garima Pulliam HEMOGRAM AND PLATELon 2022 Hematocrit (Bld) [Volume fraction] 45.7 % Normal 42.0-54.0 [facility] Comment on above: Performed By: #### H H ####[facility] Mypjobjarc07[address] [place], [place] [address]Dr. Garima Pulliam Hemoglobin (Bld) [Mass/Vol] 15.1 g/dL Normal 14.0-18.0 [facility] Comment on above: Performed By: #### H H ####[facility] Laplvdblpb[address] [place], [place] [address]Dr. Garima Pulliam MCH (RBC) [Entitic mass] 30.0 pg Normal 25.9-34.0 [facility] Comment on above: Performed By: #### H H ####[facility] Fzflgixitp[address] [place], [place] [address]Dr. Garima Pulliam MCHC (RBC) [Mass/Vol] 33.0 g/dL Normal 29.9-35.2 [facility] [place] Comment on above: Performed By: #### H H ####[facility] Zcbfcyltrf39[address] [place], [place] [address]Dr. Garima Pulliam MCV (RBC) [Entitic vol] 90.7 fL Normal 80.0-94.0 [facility] [place] Comment on above: Performed By: #### H H ####[facility] Lkutfwkyyy9[address] [place], [place] [address]Dr. Garima Pulliam PLT 222 103/ul Normal 150-450 [facility] [place] Comment on above: Performed By: #### H H ####[facility] Bvzodzwcbr4[address] [place] [id number]. Garima Pulliam RBC 5.04 106/ul Normal 4.70-6.10 [facility] [place] Comment on above: Performed By: #### H H ####[facility] Jujuvfxreb4699 [place] [id number]. Garima Pulliam WBC 8.7 103/ul Normal 4.0-11.0 [facility] [place] Comment on above: Performed By: #### H H ####[facility] Wzxsakxhoe[address] [place] [address]Dr. Garima Pulliam LIPID PROFILEon 03-27-2023 CHOL-HDL RATIO NORM SEE BELOW Normal [facility] Comment on above: Result Comment: 3.3 - 4.4 LOW RISK 4.4 - 7.1 AVERAGE RISK 7.1 - 11.0 MODERATE RISK >11.0 HIGH RISK Performed By: #### C MP, BNP, LIPID ####[facility] Zxarooqhjk1143 [place] [id number]. Garima Pulliam Cholesterol [Mass/Vol] 113 mg/dL Normal <=200 [facility] [place] Comment on above: Performed By: #### C MP, BNP, LIPID ####[facility] Srdgojzmbg2430 [place] [id number]. Garima Pulliam Cholesterol in HDL [Mass/Vol] 51 mg/dL Normal 40-60 [facility] [place] Comment on above: Performed By: #### C MP, BNP, LIPID ####[facility] Naqyvimlln034[address] [place] [phone]. Garima Pulliam Cholesterol in LDL [Mass/Vol] 49.8 mg/dL Normal [facility] [place] Comment on above: Performed By: #### C MP, BNP, LIPID ####[facility] Yonyycysql4006 [place] [phone]. Garima Pulliam Cholesterol.total/Cho lesterol in HDL [Mass ratio] 2.2 {ratio} Normal [facility] [place] Comment on above: Performed By: #### C MP, BNP, LIPID ####[facility] Chxnxooxzq[address] [place] [address]Dr. Garima Pulliam HDL NORMAL > or = 60 mg/dl - LOW CARDIOVASCULAR RISK <40 mg/dl - HIGH CARDIOVASCULAR RISK Normal [facility] [place] Comment on above: Performed By: #### C MP, BNP, LIPID ####[facility] Uvgstwpwfd[address] [place] [address]Dr. Garima Pulliam LDL CALC NORMAL SEE BELOW Normal [facility] Comment on above: Result Comment: <100 mg/dl OPTIMAL 100 - 129 mg/dl NEAR OR ABOVE OPTIMAL 130 - 159 mg/dl BORDERLINE HIGH 160 - 189 mg/dl HIGH >190 mg/dl VERY HIGH Performed By: #### C MP, BNP, LIPID ####[facility] Dnzuzaeksb[address] [place] [address]Dr. Garima Pulliam Triglyceride [Mass/Vol] 61 mg/dL Normal <=150 [facility] [place] Comment on above: Performed By: #### C MP, BNP, LIPID ####[facility] Tofsefrimj04[address] [place] [address]Dr. Garima Pulliam VLDL CALC 12.2 mg/dL Normal [facility] [place] Comment on above: Performed By: #### C MP, BNP, LIPID ####[facility] Tsqbkylbcs5[address] [place] [address]Dr. Garima Pulliam PROF 14(COMP METB)on 023 Albumin [Mass/Vol] 3.5 g/dL Normal 3.4-5.0 [facility] Comment on above: Performed By: #### C MP, BNP, LIPID ####[facility] Ztsjwolgbz6605 [place] [address]Dr. Garima Pulliam Albumin/Globulin [Mass ratio] 1.2 {ratio} Normal [facility] [place] Comment on above: Performed By: #### C MP, BNP, LIPID ####[facility] Aeblqqoxvx3308 [place] [address]Dr. Garima Pulliam ALP [Catalytic activity/Vol] 82 U/L Normal 46-116 [facility] [place] Comment on above: Performed By: #### C MP, BNP, LIPID ####[facility] Tmfrrndcpo4559 [place] [address]Dr. Garima Pulliam ALT [Catalytic activity/Vol] 33 U/L Normal 16-63 [facility] [place] Comment on above: Performed By: #### C MP, BNP, LIPID ####[facility] Nrheahjswq4128 [place] [address]Dr. Garima Pulliam Anion gap [Moles/Vol] 9.9 mmol/L Normal [facility] [place] Comment on above: Performed By: #### C MP, BNP, LIPID ####[facility] Werpubjanq8662 [place] [address]Dr. Garima Pulliam AST [Catalytic activity/Vol] 24 U/L Normal 15-37 [facility] [place] Comment on above: Performed By: #### C MP, BNP, LIPID ####[facility] Cewjthxvjw6065 [place] [address]Dr. Garima Pulliam Bilirubin [Mass/Vol] 0.6 mg/dL Normal 0.2-1.0 [facility] [place] Comment on above: Performed By: #### C MP, BNP, LIPID ####[facility] Efuyihqkmc0062 [place] [address]Dr. Garima Pulliam Calcium [Mass/Vol] 9.2 mg/dL Normal 8.5-10.1 [facility] Comment on above: Performed By: #### C MP, BNP, LIPID ####[facility] Ewbikerisk4088 [place] [address]Dr. Garima Pulliam Chloride [Moles/Vol] 106 mmol/L Normal 98-107 [facility] [place] Comment on above: Performed By: #### C MP, BNP, LIPID ####[facility] Txmwwbdutf3948 [place] [address]Dr. Garima Pulliam CO2 [Moles/Vol] 32.3 mmol/L Critically high 21.0-32.0 [facility] [place] Comment on above: Performed By: #### C MP, BNP, LIPID ####[facility] Biddbtzini3328 [place] [address]Dr. Garima Pulliam Creatinine [Mass/Vol] 0.70 mg/dL Normal 0.70-1.30 [facility] [place] Comment on above: Performed By: #### C MP, BNP, LIPID ####[facility] Swaptovvcu0717 [place] [address]Dr. Chapisrenu Heraclio EGFR-AF TUVALUAN >60 Normal >=60 [facility] Comment on above: Performed By: #### C MP, BNP, LIPID ####[facility] Xtrblftptf2065 [place] [address]Dr. Garima Pulliam EGFR-NON AF TUVALUAN >60 Normal >=60 [facility] [place] Comment on above: Performed By: #### C MP, BNP, LIPID ####[facility] Wsisbechob4433 [place] [address]Dr. Garima Pulliam Globulin (S) [Mass/Vol] 2.9 g/dL Normal [facility] [place] Comment on above: Performed By: #### C MP, BNP, LIPID ####[facility] Oejfqbblqr5692 [place] [address]Dr. Garima Pulliam Glucose [Mass/Vol] 111 mg/dL Critically high 74-106 [facility] Comment on above: Performed By: #### C MP, BNP, LIPID ####[facility] Imgermwtye85[address] [place], [place] [address]Dr. Garima Pulliam Potassium [Moles/Vol] 4.2 mmol/L Normal 3.5-5.1 [facility] [place] Comment on above: Performed By: #### C MP, BNP, LIPID ####[facility] Lgydujnyoq1266[address] [place], [place] [address]Dr. Garima Pulliam Protein [Mass/Vol] 6.4 g/dL Normal 6.4-8.2 [facility] Comment on above: Performed By: #### C MP, BNP, LIPID ####[facility] Wbfkftoqwd833[address] [place], [place] [address]Dr. Garima Pulliam Sodium [Moles/Vol] 144 mmol/L Normal 136-145 [facility] Comment on above: Performed By: #### C MP, BNP, LIPID ####[facility] Eikgnujuql3630[address] [place], [place] [address]Dr. Garima Pulliam Urea nitrogen [Mass/Vol] 7.0 mg/dL Normal 7.0-18.0 [facility] Comment on above: Performed By: #### C MP, BNP, LIPID ####[facility] Ffrjsycdrp0[address] [place], [place] [address]Dr. Garima Pulliam Urea nitrogen/Creatinine [Mass ratio] 10.0 mg/mg Normal [facility] Comment on above: Performed By: #### C MP, BNP, LIPID ####[facility] Vhvixxznse55[address] [place], [place] [address]Dr. Garima Pulliam BNPon 03-22-2023 Natriuretic peptide B (Bld) [Mass/Vol] 103.0 pg/mL Normal <=900.0 [facility] Comment on above: Performed By: #### B FREIGHT BREAKER, BMP ####[facility] Ckhgattmqa5740[address] [place], [place] [address]Dr. Garima Pulliam CBC AUTO DIFFon 03-22-2023 BASO # 0.0 103/ul Normal 0.0-0.1 [facility] Comment on above: Performed By: #### C BC ####[facility] Fuiwujeeyz7260[address] [place], [place] [address]Dr. Garima Pulliam Basophils/100 WBC (Bld) 0.3 % Normal 0.2-2.0 [facility] Comment on above: Performed By: #### C BC ####[facility] Nvlwveyqit6766[address] [place], [place] [address]Dr. Garima Pulliam EO # 0.2 103/ul Normal 0.0-0.7 [facility] Comment on above: Performed By: #### C BC ####[facility] Kfwgwmdpei9068[address] [place], [place] [address]Dr. Garima Pulliam Eosinophils/100 WBC (Bld) 2.2 % Normal 0.9-7.0 [facility] Comment on above: Performed By: #### C BC ####[facility] Talmlhkzer8098[address] [place], [place] [address]Dr. Garima Pulliam Erythrocyte distribution width (RBC) [Ratio] 13.2 % Normal 11.0-15.0 [facility] Comment on above: Performed By: #### C BC ####[facility] Mlcexdybqk8721 [place] [address]Dr. Garima Pulliam Hematocrit (Bld) [Volume fraction] 43.4 % Normal 42.0-54.0 [facility] [place] Comment on above: Performed By: #### C BC ####[facility] Cmubdzxrqd2237 [place] [address]Dr. Garima Heraclio Hemoglobin (Bld) [Mass/Vol] 14.3 g/dL Normal 14.0-18.0 [facility] [place] Comment on above: Performed By: #### C BC ####[facility] Vbfucnffwg3[address] [place], [place] [address]Dr. Garima Heraclio IG # 0.02 10e3/ul Normal 0.00-0.03 [facility] [place] Comment on above: Performed By: #### C BC ####[facility] Uwtwixxkhx1435[address] [place], [place] [address]Dr. Garima Pulliam IG % 0.3 % Normal 0.0-0.5 [facility] [place] Comment on above: Performed By: #### C BC ####[facility] Kfigperdhd[address] [place], [place] [address]Dr. Garima Heraclio LYMPH # 2.0 103/ul Normal 1.2-3.8 [facility] Comment on above: Performed By: #### C BC ####[facility] Zriuuequet626[address] [place], [place] [address]Dr. Chapisrenu Pulliam Lymphocytes/100 WBC (Bld) 24.8 % Normal 20.5-60.0 [facility] [place] Comment on above: Performed By: #### C BC ####[facility] Vtklkqtuzt044[address] [place], [place] [address]Dr. Chapisrenu Pulliam MANUAL DIFF REQ NO Normal [facility] Comment on above: Performed By: #### C BC ####[facility] Vqawjdjtbu8028[address] [place], [place] [address]Dr. Garima Pulliam MCH (RBC) [Entitic mass] 30.0 pg Normal 25.9-34.0 [facility] [place] Comment on above: Performed By: #### C BC ####[facility] Scitsehyww9886 [place] [id number]. Garima Heraclio MCHC (RBC) [Mass/Vol] 32.9 g/dL Normal 29.9-35.2 [facility] Comment on above: Performed By: #### C BC ####[facility] Rmluhxwhcg7590 [place] [id number]. Garima Pulliam MCV (RBC) [Entitic vol] 91.0 fL Normal 80.0-94.0 [facility] Comment on above: Performed By: #### C BC ####[facility] Eckfykywdp57[address] [place], [place] [address]Dr. Garima Pulliam MONO # 0.8 103/ul Normal 0.3-0.8 [facility] Comment on above: Performed By: #### C BC ####[facility] Swigjhiazw8380[address] [place], [place] [address]Dr. Garima Pulliam Monocytes/100 WBC (Bld) 9.7 % Normal 1.7-12.0 [facility] Comment on above: Performed By: #### C BC ####[facility] Livkwhueoz[address] [place], [place] [address]Dr. Garima Pulliam NEUT # 4.9 103/ul Normal 1.4-6.5 [facility] Comment on above: Performed By: #### C BC ####[facility] Wfvcdslzfz7[address] [place], [place] [address]Dr. Garima Pulliam Neutrophils/100 WBC (Bld) 62.7 % Normal 43.0-75.0 [facility] Comment on above: Performed By: #### C BC ####[facility] Xhfvodattk35[address] [place], [place] [address]Dr. Garima Pulliam Platelet mean volume (Bld) [Entitic vol] 8.8 fL Critically low 9.5-13.5 [facility] Comment on above: Performed By: #### C BC ####[facility] Nzghgquwpq1064[address] [place], [place] [address]Dr. Garima Pulliam PLT 198 103/ul Normal 150-450 [facility] Comment on above: Performed By: #### C BC ####[facility] Faagsojigj9[address] [place] [id number]. Chapisrenu Pulliam RBC 4.77 106/ul Normal 4.70-6.10 [facility] Comment on above: Performed By: #### C BC ####[facility] Pyznbaxdmc0811 [place] [address]Dr. Garima Pulliam WBC 7.9 103/ul Normal 4.0-11.0 [facility] Comment on above: Performed By: #### C BC ####[facility] Talfsozduy5208 [place] [address]Dr. Garima Pulliam D-DIMERon 03-22-2023 D-DIMER 0.85 mg/L FEU Critically high <=0.59 [facility] Comment on above: Performed By: #### D DIM ####[facility] Yrihllebvo83[address] [place], [place] [address]Dr. Garima Pulliam D-DIMER COMMENTS SEE BELOW Normal [facility] Comment on above: Result [...] generalized hospitalization. Performed By: #### D DIM ####[facility] Wfgyhrywah1743 [place] [address]Dr. Garima Pulliam PROF CHEM 8 (BAS METB)on Anion gap [Moles/Vol] 6.9 mmol/L Normal [facility] [place] Comment on above: Performed By: #### B FREIGHT BREAKER, BMP ####[facility] Siynzriikp0269 [place] [address]Dr. Garima Pulliam Calcium [Mass/Vol] 8.9 mg/dL Normal 8.5-10.1 [facility] Comment on above: Performed By: #### B FREIGHT BREAKER, BMP ####[facility] Ekxqrqtnop8701 [place] [phone]. Garima Pulliam Chloride [Moles/Vol] 101 mmol/L Normal 98-107 [facility] [place] Comment on above: Performed By: #### B FREIGHT BREAKER, BMP ####[facility] Fsiwpniiqe1566 [place] [phone]. Garima Pulliam CO2 [Moles/Vol] 30.7 mmol/L Normal 21.0-32.0 [facility] Comment on above: Performed By: #### B FREIGHT BREAKER, BMP ####[facility] Rthvrtmupp4483 [place] [phone]. Garima Pulliam Creatinine [Mass/Vol] 0.82 mg/dL Normal 0.70-1.30 [facility] [place] Comment on above: Performed By: #### B FREIGHT BREAKER, BMP ####[facility] Dczkjkbyrz8972 [place] [address]Dr. Garima Pulliam EGFR-AF TUVALUAN >60 Normal >=60 [facility] Comment on above: Performed By: #### B FREIGHT BREAKER, BMP ####[facility] Qbztbnfqcb5706 [place] [address]Dr. Garima Pulliam EGFR-NON AF TUVALUAN >60 Normal >=60 [facility] [place] Comment on above: Performed By: #### B FREIGHT BREAKER, BMP ####[facility] Iyhzdsqdcd5240[address] [place], [place] [address]Dr. Garima Pulliam Glucose [Mass/Vol] 339 mg/dL Critically high 74-106 [facility] Comment on above: Performed By: #### B FREIGHT BREAKER, BMP ####[facility] Ftmtgtnwxn5293 [place] [phone]. Garima Pulliam Potassium [Moles/Vol] 3.6 mmol/L Normal 3.5-5.1 [facility] [place] Comment on above: Performed By: #### B FREIGHT BREAKER, BMP ####[facility] Ahrhxhdbcb7177 [place] [address]Dr. Garima Pulliam Sodium [Moles/Vol] 135 mmol/L Critically low 136-145 [facility] Comment on above: Performed By: #### B FREIGHT BREAKER, BMP ####[facility] Ppwkfltrjf9266 [place] [phone]. Garima Pulliam Urea nitrogen [Mass/Vol] 11.0 mg/dL Normal 7.0-18.0 [facility] Comment on above: Performed By: #### B FREIGHT BREAKER, BMP ####[facility] Hkehnczboa5157 [place] [id number]. Garima Pulliam Urea nitrogen/Creatinine [Mass ratio] 13.4 mg/mg Normal [facility] Comment on above: Performed By: #### B FREIGHT BREAKER, BMP ####[facility] Hbdmkgkagx713[address] [place], [place] [address]Dr. Garima Pulliam US VERONICA DOP LEG BILon 023 US VERONICA DOP LEG BENOIT Normal [facility] BNPon 03-18-2023 Natriuretic peptide B (Bld) [Mass/Vol] 226.0 pg/mL Normal <=900.0 [facility] Comment on above: Performed By: #### B FREIGHT BREAKER, BMP ####[facility] Nvxnxmkhou837[address] [place], [place] [address]Dr. Garima Pulliam CBC AUTO DIFFon 03-18-2023 BASO # 0.0 103/ul Normal 0.0-0.1 [facility] Comment on above: Performed By: #### C BC ####[facility] Qxrbdzwxtj280[address] [place], [place] [address]Dr. Garima Heraclio Basophils/100 WBC (Bld) 0.2 % Normal 0.2-2.0 [facility] Comment on above: Performed By: #### C BC ####[facility] Dzgbcodjpv0024[address] [place], [place] [address]Dr. Garima Pulliam EO # 0.3 103/ul Normal 0.0-0.7 [facility] Comment on above: Performed By: #### C BC ####[facility] Djwkicuytw5684[address] [place], [place] [address]Dr. Garima Heraclio Eosinophils/100 WBC (Bld) 2.5 % Normal 0.9-7.0 [facility] Comment on above: Performed By: #### C BC ####[facility] Mhqftqsjri[address] [place], [place] [address]Dr. Garima Pulliam Erythrocyte distribution width (RBC) [Ratio] 13.2 % Normal 11.0-15.0 [facility] Comment on above: Performed By: #### C BC ####[facility] Mltmlqfsfb7415 [place] [address]Dr. Garima Pulliam Hematocrit (Bld) [Volume fraction] 45.8 % Normal 42.0-54.0 [facility] Comment on above: Performed By: #### C BC ####[facility] Efdcrybfhe1537 [place] [address]Dr. Garima Pulliam Hemoglobin (Bld) [Mass/Vol] 15.3 g/dL Normal 14.0-18.0 [facility] Comment on above: Performed By: #### C BC ####[facility] Buuyrhvwve6595[address] [place], [place] [address]Dr. Garima Heraclio IG # 0.02 10e3/ul Normal 0.00-0.03 [facility] Comment on above: Performed By: #### C BC ####[facility] Fppwscqlad0785[address] [place], [place] [address]Dr. Garima Pulliam IG % 0.2 % Normal 0.0-0.5 [facility] Comment on above: Performed By: #### C BC ####[facility] Krorsymnug9126[address] [place], [place] [address]Dr. Garima Heraclio LYMPH # 1.8 103/ul Normal 1.2-3.8 [facility] Comment on above: Performed By: #### C BC ####[facility] Qgzrcyizrw195234 [address] [place], [place] [address]Dr. Chapisrenu Pulliam Lymphocytes/100 WBC (Bld) 18.3 % Critically low 20.5-60.0 [facility] Comment on above: Performed By: #### C BC ####[facility] Nltqhrbzgv1208[address] [place], [place] [address]Dr. Chapisrenu Pulliam MANUAL DIFF REQ NO Normal [facility] Comment on above: Performed By: #### C BC ####[facility] Emvwjviqoo8[address] [place], [place] [address]Dr. Garima Pulliam MCH (RBC) [Entitic mass] 30.5 pg Normal 25.9-34.0 [facility] Comment on above: Performed By: #### C BC ####[facility] Uovkrjjhed4325 [place] [id number]. Garima Pulliam MCHC (RBC) [Mass/Vol] 33.4 g/dL Normal 29.9-35.2 [facility] Comment on above: Performed By: #### C BC ####[facility] Fbiuybdcpk9228 [place] [id number]. Garima Pulliam MCV (RBC) [Entitic vol] 91.2 fL Normal 80.0-94.0 [facility] Comment on above: Performed By: #### C BC ####[facility] Suqvxwjeov480[address] [place], [place] [address]DrAdalberto Garima Heraclio MONO # 0.8 103/ul Normal 0.3-0.8 [facility] Comment on above: Performed By: #### C BC ####[facility] Pqnpbrfnrf2715[address] [place], [place] [address]Dr. Garima Heraclio Monocytes/100 WBC (Bld) 7.6 % Normal 1.7-12.0 [facility] Comment on above: Performed By: #### C BC ####[facility] Mqremjisrr2314[address] [place], [place] [address]Dr. Garima Pulliam NEUT # 7.0 103/ul Critically high 1.4-6.5 [facility] Comment on above: Performed By: #### C BC ####[facility] Zptwiyqcxl148[address] [place], [place] [address]DrAdalberto Garima Hearclio Neutrophils/100 WBC (Bld) 71.2 % Normal 43.0-75.0 [facility] Comment on above: Performed By: #### C BC ####[facility] Pvjvjvtrtm49[address] [place], [place] [address]Dr. Garima Pulliam Platelet mean volume (Bld) [Entitic vol] 8.9 fL Critically low 9.5-13.5 [facility] Comment on above: Performed By: #### C BC ####[facility] Bkdpcdpauh0598 [place] [id number]. Garima Pulliam PLT 217 103/ul Normal 150-450 [facility] [place] Comment on above: Performed By: #### C BC ####[facility] Tstpnaibtd7630[address] [place], [place] [address]Dr. Garima Pulliam RBC 5.02 106/ul Normal 4.70-6.10 [facility] [place] Comment on above: Performed By: #### C BC ####[facility] Gbcifburwg1240[address] [place], [place] [address]Dr. Garima Pulliam WBC 9.8 103/ul Normal 4.0-11.0 [facility] [place] Comment on above: Performed By: #### C BC ####[facility] Xynlefkzla8[address] [place], [place] [address]Dr. Garima Heraclio CRPon 03-18-2023 CRP 0.1 mg/dL Normal <=1.0 [facility] [place] Comment on above: Performed By: #### C RP ####[facility] Dhetmqyvnz263[address] [place], [place] [address]Dr. Garima Heraclio PROF CHEM 8 (BAS METB)on Anion gap [Moles/Vol] 10.4 mmol/L Normal [facility] Comment on above: Performed By: #### B FREIGHT BREAKER, BMP ####[facility] Urnhhlkkwf014[address] [place], [place] [address]Dr. Garima Heraclio Calcium [Mass/Vol] 8.8 mg/dL Normal 8.5-10.1 [facility] Comment on above: Performed By: #### B FREIGHT BREAKER, BMP ####[facility] Tzbhpndtyh1196 [place] [address]Dr. Garima Pulliam Chloride [Moles/Vol] 97 mmol/L Critically low 98-107 [facility] [place] Comment on above: Performed By: #### B FREIGHT BREAKER, BMP ####[facility] Skgvlrfkoj5831 [place] [address]Dr. Garima Pulliam CO2 [Moles/Vol] 31.2 mmol/L Normal 21.0-32.0 [facility] Comment on above: Performed By: #### B FREIGHT BREAKER, BMP ####[facility] Nnm[address]huwgd[address] [place] [id number]. Garima Pulliam Creatinine [Mass/Vol] 0.91 mg/dL Normal 0.70-1.30 [facility] [place] Comment on above: Performed By: #### B FREIGHT BREAKER, BMP ####[facility] Xticuztknz[address] [place] [id number]. Garima Pulliam EGFR-AF TUVALUAN >60 Normal >=60 [facility] Comment on above: Performed By: #### B FREIGHT BREAKER, BMP ####[facility] Xzttezfyjm7741 [place] [id number]. Garima Pulliam EGFR-NON AF TUVALUAN >60 Normal >=60 [facility] [place] Comment on above: Performed By: #### B FREIGHT BREAKER, BMP ####[facility] Mvmwkjmutz[address] [place], [place] [id number]. Garima Pulliam Glucose [Mass/Vol] 315 mg/dL Critically high 74-106 T [facility] Comment on above: Performed By: #### B FREIGHT BREAKER, BMP ####[facility] Ymvgtndaar[address] [place], [place] [id number]. Garima Pulliam Potassium [Moles/Vol] 3.6 mmol/L Normal 3.5-5.1 [facility] [place] Comment on above: Performed By: #### B FREIGHT BREAKER, BMP ####[facility] Rpwwjwszpu[address] [place], [place] [address]Dr. Garima Pulliam Sodium [Moles/Vol] 135 mmol/L Critically low 136-145 Th [facility] Comment on above: Performed By: #### B FREIGHT BREAKER, BMP ####[facility] Fcgkjqvytk[address] [place], [place] [address]Dr. Garima Pulliam Urea nitrogen [Mass/Vol] 7.0 mg/dL Normal 7.0-18.0 [facility] [place] Comment on above: Performed By: #### B FREIGHT BREAKER, BMP ####[facility] Tdhafoxwqr[address] [place], [place] [address]Dr. Garima Pulliam Urea nitrogen/Creatinine [Mass ratio] 7.7 mg/mg Normal [facility] [place] Comment on above: Performed By: #### B FREIGHT BREAKER, BMP ####[facility] Fevyetfyzh37[address] [place], [place] [address]Dr. Garima Pulliam SED RATE WESTERGRENon 2022 SED RATE 8 mm/hr Normal <=20 [facility] Comment on above: Performed By: #### S EDR ####[facility] Dvfmnuahtk537[address] [place], [place] [address]Dr. Garima Pulliam BNPon 03-16-2023 Natriuretic peptide B (Bld) [Mass/Vol] 241.0 pg/mL Normal <=900.0 [facility] [place] Comment on above: Performed By: #### B FREIGHT BREAKER, BMP, HSTROPN ####[facility] Afgnfuhpbb1687[address] [place], [place] [address]Dr. Garima Heraclio CBC AUTO DIFFon 03-16-2023 BASO # 0.0 103/ul Normal 0.0-0.1 [facility] [place] Comment on above: Performed By: #### C BC ####[facility] Bhhdisggar34[address] [place], [place] [address]Dr. Garima Heraclio Basophils/100 WBC (Bld) 0.2 % Normal 0.2-2.0 [facility] Comment on above: Performed By: #### C BC ####[facility] Uylpzhkjbk139234 [address] [place], [place] [address]Dr. Chapisrenu Heraclio EO # 0.2 103/ul Normal 0.0-0.7 [facility] Comment on above: Performed By: #### C BC ####[facility] Goumzmufpu26[address] [place], [place] [address]Dr. Garima Heraclio Eosinophils/100 WBC (Bld) 2.7 % Normal 0.9-7.0 [facility] Comment on above: Performed By: #### C BC ####[facility] Nutdrzzhrg5988[address] [place], [place] [address]Dr. Garima Heraclio Erythrocyte distribution width (RBC) [Ratio] 13.1 % Normal 11.0-15.0 [facility] Comment on above: Performed By: #### C BC ####[facility] Ruyovlsyjo4130[address] [place], [place] [address]Dr. Garima Heraclio Hematocrit (Bld) [Volume fraction] 41.8 % Critically low 42.0-54.0 [facility] [place] Comment on above: Performed By: #### C BC ####[facility] Jjzlktzodq23[address] [place] [address]DrAdalberto Garima Pulliam Hemoglobin (Bld) [Mass/Vol] 14.0 g/dL Normal 14.0-18.0 [facility] [place] Comment on above: Performed By: #### C BC ####[facility] Idrjhhcfhi4[address] [place] [address]DrAdalberto Pulliam IG # 0.03 10e3/ul Normal 0.00-0.03 [facility] [place] Comment on above: Performed By: #### C BC ####[facility] Qcfpkjkuwi639[address] [place], [place] [address]DrAdalberto Chapisrenu Pulliam IG % 0.3 % Normal 0.0-0.5 [facility] [place] Comment on above: Performed By: #### C BC ####[facility] Fjmqxlcbyf4458[address] [place], [place] [address]DrAdalberto Chapisrenu Pulliam LYMPH # 2.1 103/ul Normal 1.2-3.8 [facility] Comment on above: Performed By: #### C BC ####[facility] Ihtwhwgprd5[address] [place], [place] [address]DrAdalberto Chapisrenu Pulliam Lymphocytes/100 WBC (Bld) 24.2 % Normal 20.5-60.0 [facility] [place] Comment on above: Performed By: #### C BC ####[facility] Wsyegyexzd[address] [place], [place] [address]DrAdalberto Pulliam MANUAL DIFF REQ NO Normal [facility] Comment on above: Performed By: #### C BC ####[facility] Jgradfquzx0229[address] [place], [place] [address]DrAdalberto Pulliam MCH (RBC) [Entitic mass] 30.2 pg Normal 25.9-34.0 [facility] Comment on above: Performed By: #### C BC ####[facility] Cmqsxpnqcq821334 [address] [place], [place] [address]DrAdalberto Pulliam MCHC (RBC) [Mass/Vol] 33.5 g/dL Normal 29.9-35.2 [facility] Comment on above: Performed By: #### C BC ####[facility] Ollwgjkgrz3948[address] [place], [place] [address]DrAdalberto Pulliam MCV (RBC) [Entitic vol] 90.1 fL Normal 80.0-94.0 [facility] Comment on above: Performed By: #### C BC ####[facility] Rvsomigxtw7216[address] [place], [place] [address]DrAdalberto Pulliam MONO # 0.6 103/ul Normal 0.3-0.8 [facility] Comment on above: Performed By: #### C BC ####[facility] Tryasgfxga6833[address] [place], [place] [address]DrAdalberto Pulliam Monocytes/100 WBC (Bld) 7.4 % Normal 1.7-12.0 [facility] Comment on above: Performed By: #### C BC ####[facility] Ynwgfepzvk7510[address] [place], [place] [address]DrAdalberto Pulliam NEUT # 5.6 103/ul Normal 1.4-6.5 [facility] Comment on above: Performed By: #### C BC ####[facility] Ktmohvbznd6446[address] [place], [place] [address]DrAdalberto Pulliam Neutrophils/100 WBC (Bld) 65.2 % Normal 43.0-75.0 [facility] Comment on above: Performed By: #### C BC ####[facility] Javbsfinoo4757[address] [place], [place] [address]DrAdalberto Pulliam Platelet mean volume (Bld) [Entitic vol] 8.7 fL Critically low 9.5-13.5 [facility] Comment on above: Performed By: #### C BC ####[facility] Jzuntenkul879[address] [place], [place] [address]DrAdalberto Pulliam PLT 195 103/ul Normal 150-450 [facility] Comment on above: Performed By: #### C BC ####[facility] Irtffrjqsl774[address] [place], [place] [address]DrAdalberto Pulliam RBC 4.64 106/ul Critically low 4.70-6.10 [facility] Comment on above: Performed By: #### C BC ####[facility] Xaimhqdvud701634 [address] [place], [place] [address]Dr. Chapisrenu Pulliam WBC 8.6 103/ul Normal 4.0-11.0 [facility] [place] Comment on above: Performed By: #### C BC ####[facility] Yrdbyrjymi01[address] [place], [place] [address]Dr. Garima Pulliam PROF CHEM 8 (BAS METB)on Anion gap [Moles/Vol] 6.7 mmol/L Normal [facility] [place] Comment on above: Performed By: #### B FREIGHT BREAKER, BMP, HSTROPN ####[facility] Vxfkrnmzft6036[address] [place], [place] [address]Dr. Garima Pulliam Calcium [Mass/Vol] 8.8 mg/dL Normal 8.5-10.1 [facility] Comment on above: Performed By: #### B FREIGHT BREAKER, BMP, HSTROPN ####[facility] Nmhxvzxcun6238[address] [place], [place] [address]Dr. Garima Pulliam Chloride [Moles/Vol] 106 mmol/L Normal 98-107 [facility] Comment on above: Performed By: #### B FREIGHT BREAKER, BMP, HSTROPN ####[facility] Wctbnhblki0046[address] [place], [place] [address]Dr. Garima Pulliam CO2 [Moles/Vol] 31.4 mmol/L Normal 21.0-32.0 [facility] Comment on above: Performed By: #### B FREIGHT BREAKER, BMP, HSTROPN ####[facility] Mpixmdmckr1409[address] [place], [place] [address]Dr. Garima Pulliam Creatinine [Mass/Vol] 0.75 mg/dL Normal 0.70-1.30 [facility] Comment on above: Performed By: #### B FREIGHT BREAKER, BMP, HSTROPN ####[facility] Orisiltyuo6498[address] [place], [place] [address]Dr. Garima Pulliam EGFR-AF TUVALUAN >60 Normal >=60 [facility] Comment on above: Performed By: #### B FREIGHT BREAKER, BMP, HSTROPN ####[facility] R[address]qq[address]rvx[address] [place] [address]Dr. Garima Pulliam EGFR-NON AF TUVALUAN >60 Normal >=60 [facility] [place] Comment on above: Performed By: #### B FREIGHT BREAKER, BMP, HSTROPN ####[facility] Nobvsqfncx38[address] [place] [address]Dr. Garima Pulliam Glucose [Mass/Vol] 161 mg/dL Critically high 74-106 T [facility] Comment on above: Performed By: #### B FREIGHT BREAKER, BMP, HSTROPN ####[facility] Rdhioethbh450[address] [place] [address]Dr. Garima Pulliam Potassium [Moles/Vol] 4.1 mmol/L Normal 3.5-5.1 [facility] [place] Comment on above: Performed By: #### B FREIGHT BREAKER, BMP, HSTROPN ####[facility] Dgltugyrzb25[address] [place] [address]Dr. Garima Pulliam Sodium [Moles/Vol] 140 mmol/L Normal 136-145 [facility] Comment on above: Performed By: #### B FREIGHT BREAKER, BMP, HSTROPN ####[facility] Xpuoylgvvs9[address] [place] [address]Dr. Garima Pulliam Urea nitrogen [Mass/Vol] 7.0 mg/dL Normal 7.0-18.0 [facility] [place] Comment on above: Performed By: #### B FREIGHT BREAKER, BMP, HSTROPN ####[facility] Yftwznpmhu[address] [place] [address]Dr. Garima Pulliam Urea nitrogen/Creatinine [Mass ratio] 9.3 mg/mg Normal [facility] [place] Comment on above: Performed By: #### B FREIGHT BREAKER, BMP, HSTROPN ####[facility] Qbhxhvsudx2158[address] [place], [place] [address]Dr. Garima Pulliam TROPONIN, HIGH SENSITIVITYon 03-16-2023 HSTROP 9.7 pg/mL Normal 4.0-76.1 [facility] [place] Comment on above: Result Comment: CUT- OFF POINTS HAVE BEEN ESTABLISHED BASED ON THE FOURTH UNIVERSAL DEFINITIONS OF MYOCARDIALINFARCTION. THE UPPER REFERENCE LIMIT (URL) OF TROPONIN, DEFINED THE 99TH PERCENTILE OFcTnI DISTRIBUTION IN A REFERENCE POPULATION, HAS BEEN CONFIRMED THE DECISION THRESHOLDFOR MD DIAGNOSIS. Performed By: #### B FREIGHT BREAKER, BMP, HSTROPN ####[facility] Fxcktupgiq[address] [place] [address]Dr. Garima Pulliam XR CHEST 1 Von 03-16-2023 XR CHEST 1 V Normal [facility] BNPon 03-06-2023 Natriuretic peptide B (Bld) [Mass/Vol] 111.0 pg/mL Normal <=900.0 [facility] Comment on above: Performed By: #### C MP, BNP, CK ####[facility] Nzczsnaszq7735[address] [place], [place] [address]Dr. Garima Pulliam CBC AUTO DIFFon 03-06-2023 BASO # 0.0 103/ul Normal 0.0-0.1 [facility] [place] Comment on above: Performed By: #### C BC ####[facility] Oswedolmcl0232[address] [place], [place] [address]Dr. Garima Heraclio Basophils/100 WBC (Bld) 0.2 % Normal 0.2-2.0 [facility] Comment on above: Performed By: #### C BC ####[facility] Wigyadunvo60[address] [place], [place] [address]Dr. Garima Pulliam EO # 0.3 103/ul Normal 0.0-0.7 [facility] [place] Comment on above: Performed By: #### C BC ####[facility] Hpvvucijlr7138[address] [place], [place] [address]Dr. Garima Heraclio Eosinophils/100 WBC (Bld) 3.5 % Normal 0.9-7.0 [facility] Comment on above: Performed By: #### C BC ####[facility] Uuljkcetxf6007[address] [place], [place] [address]Dr. Garima Pulliam Erythrocyte distribution width (RBC) [Ratio] 13.3 % Normal 11.0-15.0 [facility] Comment on above: Performed By: #### C BC ####[facility] Boblmasagm17[address] [place], [place] [address]Dr. Garima Pulliam Hematocrit (Bld) [Volume fraction] 43.7 % Normal 42.0-54.0 [facility] Comment on above: Performed By: #### C BC ####[facility] M[address]jmoqmam[address] [place] [address]Dr. Garima Pulliam Hemoglobin (Bld) [Mass/Vol] 14.7 g/dL Normal 14.0-18.0 [facility] Comment on above: Performed By: #### C BC ####[facility] Ukfzfzntjb08[address] [place] [address]Dr. Garima Pulliam IG # 0.03 10e3/ul Normal 0.00-0.03 [facility] Comment on above: Performed By: #### C BC ####[facility] Uglshknqww54[address] [place] [address]Dr. Garima Pulliam IG % 0.4 % Normal 0.0-0.5 [facility] Comment on above: Performed By: #### C BC ####[facility] Abypnpssam448[address] [place], [place] [address]Dr. Garima Pulliam LYMPH # 2.0 103/ul Normal 1.2-3.8 [facility] Comment on above: Performed By: #### C BC ####[facility] Scgyktjlta5155[address] [place], [place] [address]Dr. Garima Pulliam Lymphocytes/100 WBC (Bld) 23.7 % Normal 20.5-60.0 [facility] Comment on above: Performed By: #### C BC ####[facility] Zmmcxsqhoe7499[address] [place], [place] [address]Dr. Garima Pulliam MANUAL DIFF REQ NO Normal [facility] Comment on above: Performed By: #### C BC ####[facility] V[address]yeekial[address] [place] [address]Dr. Garima Pulliam MCH (RBC) [Entitic mass] 30.1 pg Normal 25.9-34.0 [facility] Comment on above: Performed By: #### C BC ####[facility] Dnzucnlivu723334 [address] [place], [place] [address]Dr. Garima Pulliam MCHC (RBC) [Mass/Vol] 33.6 g/dL Normal 29.9-35.2 [facility] Comment on above: Performed By: #### C BC ####[facility] Qcvemevaol9705 [place] [address]DrAdalberto Pulliam MCV (RBC) [Entitic vol] 89.4 fL Normal 80.0-94.0 [facility] Comment on above: Performed By: #### C BC ####[facility] Bmbhafajen0923[address] [place], [place] [address]DrAdalberto Pulliam MONO # 0.8 103/ul Normal 0.3-0.8 [facility] Comment on above: Performed By: #### C BC ####[facility] Byaolbnbeo0725[address] [place], [place] [address]DrAdalberto Pulliam Monocytes/100 WBC (Bld) 9.0 % Normal 1.7-12.0 [facility] Comment on above: Performed By: #### C BC ####[facility] Sonmxlbfcu9294[address] [place], [place] [address]Dr. Garima Pulliam NEUT # 5.4 103/ul Normal 1.4-6.5 [facility] Comment on above: Performed By: #### C BC ####[facility] Pywziwaayn307[address] [place], [place] [address]DrAdalberto Pulliam Neutrophils/100 WBC (Bld) 63.2 % Normal 43.0-75.0 [facility] Comment on above: Performed By: #### C BC ####[facility] Bvmqppcuvt8516[address] [place], [place] [address]DrAdalberto Pulliam Platelet mean volume (Bld) [Entitic vol] 9.0 fL Critically low 9.5-13.5 [facility] Comment on above: Performed By: #### C BC ####[facility] Ljurngavrg5880[address] [place], [place] [address]DrAdalberto Pulliam PLT 218 103/ul Normal 150-450 [facility] Comment on above: Performed By: #### C BC ####[facility] Rfykpmafap8409[address] [place], [place] [address]DrAdalberto Pulliam RBC 4.89 106/ul Normal 4.70-6.10 [facility] [place] Comment on above: Performed By: #### C BC ####[facility] Hotljepqyx4[address] [place] [address]Dr. Garima Pulliam WBC 8.5 103/ul Normal 4.0-11.0 [facility] [place] Comment on above: Performed By: #### C BC ####[facility] Hocuusqveo75[address] [place] [address]Dr. Garima Heraclio CPKon 03-06-2023 CK [Catalytic activity/Vol] 191 U/L Normal 39-308 [facility] [place] Comment on above: Performed By: #### C MP, BNP, CK ####[facility] Egvlhudula[address] [place], [place] [address]Dr. Garima Pulliam PROF 14(COMP METB)on 023 Albumin [Mass/Vol] 3.6 g/dL Normal 3.4-5.0 [facility] Comment on above: Performed By: #### C MP, BNP, CK ####[facility] Mqfuucorzl97[address] [place] [address]Dr. Garima Pulliam Albumin/Globulin [Mass ratio] 1.2 {ratio} Normal [facility] [place] Comment on above: Performed By: #### C MP, BNP, CK ####[facility] Qzolqrzqev5[address] [place] [address]Dr. Garima Pulliam ALP [Catalytic activity/Vol] 91 U/L Normal 46-116 [facility] [place] Comment on above: Performed By: #### C MP, BNP, CK ####[facility] Tcseravyxs314[address] [place] [address]Dr. Garima Pulliam ALT [Catalytic activity/Vol] 33 U/L Normal 16-63 [facility] [place] Comment on above: Performed By: #### C MP, BNP, CK ####[facility] Cxmgqhpfgn3951 [place] [address]Dr. Garima Pulliam Anion gap [Moles/Vol] 10.3 mmol/L Normal [facility] Comment on above: Performed By: #### C MP, BNP, CK ####[facility] Fbaybefzju06[address] [place] [address]Dr. Garima Pulliam AST [Catalytic activity/Vol] 17 U/L Normal 15-37 [facility] Comment on above: Performed By: #### C MP, BNP, CK ####[facility] Eefwdtbhvi9[address] [place] [address]Dr. Garima Pulliam Bilirubin [Mass/Vol] 0.4 mg/dL Normal 0.2-1.0 [facility] [place] Comment on above: Performed By: #### C MP, BNP, CK ####[facility] Gzkdqwcinp7[address] [place] [address]Dr. Garima Pulliam Calcium [Mass/Vol] 9.1 mg/dL Normal 8.5-10.1 [facility] Comment on above: Performed By: #### C MP, BNP, CK ####[facility] Erqgbqxiho0501[address] [place], [place] [address]Dr. Garima Pulliam Chloride [Moles/Vol] 102 mmol/L Normal 98-107 [facility] Comment on above: Performed By: #### C MP, BNP, CK ####[facility] Jqxkxpkgqx8507 [place] [address]Dr. Garima Pulliam CO2 [Moles/Vol] 29.7 mmol/L Normal 21.0-32.0 [facility] Comment on above: Performed By: #### C MP, BNP, CK ####[facility] Nlooifects58[address] [place] [address]Dr. Garima Pulliam Creatinine [Mass/Vol] 0.79 mg/dL Normal 0.70-1.30 [facility] [place] Comment on above: Performed By: #### C MP, BNP, CK ####[facility] Xvnbgtsqfl5264 [place] [address]Dr. Garima Pulliam EGFR-AF TUVALUAN >60 Normal >=60 [facility] Comment on above: Performed By: #### C MP, BNP, CK ####[facility] Jtlitfpyqq44[address] [place] [address]Dr. Garima Pulliam EGFR-NON AF TUVALUAN >60 Normal >=60 [facility] [place] Comment on above: Performed By: #### C MP, BNP, CK ####[facility] Vsphhhragr5048 [place] [address]Dr. Garima Pulliam Globulin (S) [Mass/Vol] 3.0 g/dL Normal [facility] [place] Comment on above: Performed By: #### C MP, BNP, CK ####[facility] Xnzezrrapz2950 [place] [address]Dr. Garima Pullima Glucose [Mass/Vol] 202 mg/dL Critically high 74-106 T [facility] Comment on above: Performed By: #### C MP, BNP, CK ####[facility] Bsrrlapksn0925[address] [place], [place] [address]Dr. Garima Pulliam Potassium [Moles/Vol] 4.0 mmol/L Normal 3.5-5.1 [facility] [place] Comment on above: Performed By: #### C MP, BNP, CK ####[facility] Zkereucvqm2190[address] [place], [place] [address]Dr. Garima Pulliam Protein [Mass/Vol] 6.6 g/dL Normal 6.4-8.2 [facility] Comment on above: Performed By: #### C MP, BNP, CK ####[facility] Dqghmkwfrc35[address] [place], [place] [address]Dr. Garima Pulliam Sodium [Moles/Vol] 138 mmol/L Normal 136-145 [facility] Comment on above: Performed By: #### C MP, BNP, CK ####[facility] Jqsntzvsii1037[address] [place], [place] [address]Dr. Garima Pulliam Urea nitrogen [Mass/Vol] 10.0 mg/dL Normal 7.0-18.0 [facility] Comment on above: Performed By: #### C MP, BNP, CK ####[facility] Xpnwbstzay9658[address] [place], [place] [address]Dr. Garima Pulliam Urea nitrogen/Creatinine [Mass ratio] 12.7 mg/mg Normal [facility] [place] Comment on above: Performed By: #### C MP, BNP, CK ####[facility] Dimnthiodq59[address] [place], [place] [address]DrAdalberto Pulliam US VERONICA DOP LEG BILon 023 US VERONICA DOP LEG BENOIT Normal [facility] CBC AUTO DIFFon 01-13-2023 BASO # 0.0 103/ul Normal 0.0-0.1 [facility] [place] Comment on above: Performed By: #### C BC ####[facility] Rlgpapyvwp8332 [place] [address]DrAdalberto Pulliam Basophils/100 WBC (Bld) 0.0 % Critically low 0.2-2.0 [facility] [place] Comment on above: Performed By: #### C BC ####[facility] Ammihhxnnx55[address] [place] [address]DrAdalberto Pulliam EO # 0.0 103/ul Normal 0.0-0.7 [facility] [place] Comment on above: Performed By: #### C BC ####[facility] Aqkrmnqjad57[address] [place] [address]DrAdalberto Pulliam Eosinophils/100 WBC (Bld) 0.0 % Critically low 0.9-7.0 [facility] [place] Comment on above: Performed By: #### C BC ####[facility] Xqusxhvenm8572 [place] [address]DrAdalberto Pulliam Erythrocyte distribution width (RBC) [Ratio] 13.2 % Normal 11.0-15.0 [facility] [place] Comment on above: Performed By: #### C BC ####[facility] Rlfwojcoxk5[address] [place] [address]DrAdalberto Pulliam Hematocrit (Bld) [Volume fraction] 46.7 % Normal 42.0-54.0 [facility] [place] Comment on above: Performed By: #### C BC ####[facility] Vgfrkncrvk4728 [place] [address]DrAdalberto Pulliam Hemoglobin (Bld) [Mass/Vol] 15.6 g/dL Normal 14.0-18.0 [facility] [place] Comment on above: Performed By: #### C BC ####[facility] Rfbxuoeias5723 [place] [address]DrAdalberto Pulliam IG # 0.01 10e3/ul Normal 0.00-0.03 [facility] Comment on above: Performed By: #### C BC ####[facility] [address]mlmeyyryr[address] [place] [id number] Chapisrenu Pulliam IG % 0.2 % Normal 0.0-0.5 [facility] [place] Comment on above: Performed By: #### C BC ####[facility] Tiznwefxjc1377 [place] [id number] Chapisrenu Pulliam LYMPH # 0.8 103/ul Critically low 1.2-3.8 [facility] Comment on above: Performed By: #### C BC ####[facility] Yvkljquxbn3519 [place] [address]DrAdalberto Pulliam Lymphocytes/100 WBC (Bld) 12.7 % Critically low 20.5-60.0 [facility] [place] Comment on above: Performed By: #### C BC ####[facility] Nhmjfossdz4724 [place] [address]DrAdalberto Pulliam MANUAL DIFF REQ NO Normal [facility] Comment on above: Performed By: #### C BC ####[facility] Kvcsksueyq5113 [place] [id number] Garima Heraclio MCH (RBC) [Entitic mass] 30.2 pg Normal 25.9-34.0 [facility] [place] Comment on above: Performed By: #### C BC ####[facility] Dxvmskefwf5533 [place] [address]DrAdalberto Chapisrenu Pulliam MCHC (RBC) [Mass/Vol] 33.4 g/dL Normal 29.9-35.2 [facility] [place] Comment on above: Performed By: #### C BC ####[facility] Scfizmzywu6291 [place] [id number] Pulliam MCV (RBC) [Entitic vol] 90.3 fL Normal 80.0-94.0 [facility] [place] Comment on above: Performed By: #### C BC ####[facility] Wldbrvxocm2157 [place] [phone] Pulliam MONO # 0.1 103/ul Critically low 0.3-0.8 [facility] Comment on above: Performed By: #### C BC ####[facility] Tafidbvcwl6478 [place] [address]Dr. Garima Pulliam Monocytes/100 WBC (Bld) 0.9 % Critically low 1.7-12.0 [facility] [place] Comment on above: Performed By: #### C BC ####[facility] Zdwaaebiby9879 [place] [address]Dr. Garima Pulliam NEUT # 5.6 103/ul Normal 1.4-6.5 [facility] [place] Comment on above: Performed By: #### C BC ####[facility] Lthenrpvhj9258 [place] [address]Dr. Garima Pulliam Neutrophils/100 WBC (Bld) 86.2 % Critically high 43.0-75.0 [facility] [place] Comment on above: Performed By: #### C BC ####[facility] Accsaxkgmh1034 [place] [address]Dr. Garima Pulliam Platelet mean volume (Bld) [Entitic vol] 9.1 fL Critically low 9.5-13.5 [facility] [place] Comment on above: Performed By: #### C BC ####[facility] Bntektijfo[address] [place], [place] [address]Dr. Garima Pulliam PLT 169 103/ul Normal 150-450 [facility] Comment on above: Performed By: #### C BC ####[facility] Bdzblmlnkc9324 [place] [address]Dr. Garima Pulliam RBC 5.17 106/ul Normal 4.70-6.10 [facility] Comment on above: Performed By: #### C BC ####[facility] Cjlbutrmuv9598 [place] [phone]. Garima Pulliam WBC 6.5 103/ul Normal 4.0-11.0 [facility] Comment on above: Performed By: #### C BC ####[facility] Valvvunlfl[address] [place], [place] [address]Dr. Garima Pullima D-DIMERon 01-13-2023 D-DIMER 0.41 mg/L FEU Normal <=0.59 [facility] Comment on above: Performed By: #### D DIM ####[facility] Qiyfkbzbjw6557 [place] [address]Dr. Garima Pulliam D-DIMER COMMENTS SEE BELOW Normal [facility] Comment on above: Result Comment: Incr [...] generalized hospitalization. Performed By: #### D DIM ####[facility] Yonryhvhlq0501 [place] [address]Dr. Garima Pulliam PROF 14(COMP METB)on 023 Albumin [Mass/Vol] 3.4 g/dL Normal 3.4-5.0 [facility] Comment on above: Performed By: #### C MP ####[facility] Sbjnqipnvv8108 [place] [address]Dr. Garima Pulliam Albumin/Globulin [Mass ratio] 1.3 {ratio} Normal [facility] [place] Comment on above: Performed By: #### C MP ####[facility] Debnhjwfyv6017 [place] [address]Dr. Garima Pulliam ALP [Catalytic activity/Vol] 83 U/L Normal 46-116 [facility] [place] Comment on above: Performed By: #### C MP ####[facility] Otcwfpdbsq6494 [place] [address]Dr. Garima Pulliam ALT [Catalytic activity/Vol] 25 U/L Normal 16-63 [facility] [place] Comment on above: Performed By: #### C MP ####[facility] Kmmtrrnwrj8364 [place] [address]Dr. Garima Pulliam Anion gap [Moles/Vol] 14.5 mmol/L Normal [facility] Comment on above: Performed By: #### C MP ####[facility] Tqnxijwfim3376 [place] [phone]. Garima Pulliam AST [Catalytic activity/Vol] 19 U/L Normal 15-37 [facility] Comment on above: Performed By: #### C MP ####[facility] Fmsjmgiefq8342 [place] [phone]. Garima Pulliam Bilirubin [Mass/Vol] 0.4 mg/dL Normal 0.2-1.0 [facility] Comment on above: Performed By: #### C MP ####[facility] Svyummiqeu0597 [place] [phone]. Garima Pulliam Calcium [Mass/Vol] 8.7 mg/dL Normal 8.5-10.1 [facility] Comment on above: Performed By: #### C MP ####[facility] Zhuusyagmo8891 [place] [phone]. Garima Pulliam Chloride [Moles/Vol] 104 mmol/L Normal 98-107 [facility] Comment on above: Performed By: #### C MP ####[facility] Hqmeeocjcs6078 [place] [address]Dr. Garima Pulliam CO2 [Moles/Vol] 24.5 mmol/L Normal 21.0-32.0 [facility] Comment on above: Performed By: #### C MP ####[facility] Lgtkpmnjmi8605 [place] [address]Dr. Garima Pulliam Creatinine [Mass/Vol] 0.70 mg/dL Normal 0.70-1.30 [facility] Comment on above: Performed By: #### C MP ####[facility] Tfxuwjlahj8267 [place] [phone]. Garima Uplliam EGFR-AF TUVALUAN >60 Normal >=60 [facility] Comment on above: Performed By: #### C MP ####[facility] Eylzluqwfg6939 [place] [address]Dr. Garima Pulliam EGFR-NON AF TUVALUAN >60 Normal >=60 [facility] Comment on above: Performed By: #### C MP ####[facility] Vssbsfhd[address] [place], [place] [address]Dr. Garima Pulliam Globulin (S) [Mass/Vol] 2.6 g/dL Normal [facility] [place] Comment on above: Performed By: #### C MP ####[facility] Yakxsapwog8[address] [place], [place] [address]Dr. Garima Pulliam Glucose [Mass/Vol] 196 mg/dL Critically high 74-106 T [facility] Comment on above: Performed By: #### C MP ####[facility] Nujhaqisaw[address] [place], [place] [address]Dr. Garima Pulliam Potassium [Moles/Vol] 4.0 mmol/L Normal 3.5-5.1 [facility] [place] Comment on above: Performed By: #### C MP ####[facility] Mgwijxyexq7525[address] [place], [place] [address]Dr. Garima Pulliam Protein [Mass/Vol] 6.0 g/dL Critically low 6.4-8.2 [facility] Comment on above: Performed By: #### C MP ####[facility] Aydhwkpqhc1857[address] [place], [place] [address]Dr. Garima Pulliam Sodium [Moles/Vol] 139 mmol/L Normal 136-145 [facility] Comment on above: Performed By: #### C MP ####[facility] Uborgfdkbu5[address] [place], [place] [address]Dr. Garima Pulliam Urea nitrogen [Mass/Vol] 7.0 mg/dL Normal 7.0-18.0 [facility] [place] Comment on above: Performed By: #### C MP ####[facility] Tflpfbbhlk[address] [place], [place] [address]Dr. Garima Pulliam Urea nitrogen/Creatinine [Mass ratio] 10.0 mg/mg Normal [facility] [place] Comment on above: Performed By: #### C MP ####[facility] Sprvdawdcw1732[address] [place], [place] [address]Dr. Garima Pulliam BNPon 01-12-2023 Natriuretic peptide B (Bld) [Mass/Vol] 141.0 pg/mL Normal <=900.0 [facility] [place] Comment on above: Performed By: #### C MP, BNP, HSTROPN ####[facility] Pvflfnezsn0041 [place] [phone]. Garima Heraclio CBC AUTO DIFFon 01-12-2023 BASO # 0.0 103/ul Normal 0.0-0.1 [facility] Comment on above: Performed By: #### C BC ####[facility] Dcgwufenfv[address] [place], [place] [address]Dr. Garima Pulliam Basophils/100 WBC (Bld) 0.2 % Normal 0.2-2.0 [facility] Comment on above: Performed By: #### C BC ####[facility] Hcmfcazudv67[address] [place], [place] [address]Dr. Garima Pulliam EO # 0.2 103/ul Normal 0.0-0.7 [facility] Comment on above: Performed By: #### C BC ####[facility] Bzjgixrrhl49[address] [place], [place] [address]Dr. Garima Pulliam Eosinophils/100 WBC (Bld) 2.7 % Normal 0.9-7.0 [facility] Comment on above: Performed By: #### C BC ####[facility] Pwkvyonjed7[address] [place], [place] [address]Dr. Chapisrenu Pulliam Erythrocyte distribution width (RBC) [Ratio] 13.3 % Normal 11.0-15.0 [facility] Comment on above: Performed By: #### C BC ####[facility] Qbuipccyjq597[address] [place], [place] [address]Dr. Garima Pulliam Hematocrit (Bld) [Volume fraction] 42.3 % Normal 42.0-54.0 [facility] Comment on above: Performed By: #### C BC ####[facility] Wmbagtnibc7950[address] [place], [place] [address]Dr. Chapisrenu Pulliam Hemoglobin (Bld) [Mass/Vol] 14.3 g/dL Normal 14.0-18.0 [facility] Comment on above: Performed By: #### C BC ####[facility] Asnuyfbnhk5[address] [place], [place] [address]Dr. Garima Pulliam IG # 0.02 10e3/ul Normal 0.00-0.03 [facility] Comment on above: Performed By: #### C BC ####[facility] Ugksiocamy7601 [place] [phone]. Chapisrenu Pulliam IG % 0.2 % Normal 0.0-0.5 [facility] [place] Comment on above: Performed By: #### C BC ####[facility] Pibzzmkjie2648 [place] [address]Dr. Garima Pulliam LYMPH # 2.6 103/ul Normal 1.2-3.8 [facility] Comment on above: Performed By: #### C BC ####[facility] Mevefkdcyc3220 [place] [address]Dr. Chapisrenu Pulliam Lymphocytes/100 WBC (Bld) 29.6 % Normal 20.5-60.0 [facility] [place] Comment on above: Performed By: #### C BC ####[facility] Rwblqzgjjg2929 [place] [address]Dr. Garima Pulliam MANUAL DIFF REQ NO Normal [facility] Comment on above: Performed By: #### C BC ####[facility] Joxsvhmuet9856 [place] [address]Dr. Garima Pulliam MCH (RBC) [Entitic mass] 30.2 pg Normal 25.9-34.0 [facility] [place] Comment on above: Performed By: #### C BC ####[facility] Zglgscykqd7167 [place] [address]Dr. Garima Pulliam MCHC (RBC) [Mass/Vol] 33.8 g/dL Normal 29.9-35.2 [facility] Comment on above: Performed By: #### C BC ####[facility] Zthpksskka2[address] [place], [place] [address]Dr. Garima Pulliam MCV (RBC) [Entitic vol] 89.2 fL Normal 80.0-94.0 [facility] Comment on above: Performed By: #### C BC ####[facility] Rxoqtyfcuh9[address] [place], [place] [address]Dr. Garima Pulliam MONO # 0.7 103/ul Normal 0.3-0.8 [facility] Comment on above: Performed By: #### C BC ####[facility] Wvckypjvgc5012 [place] [address]Dr. Garima Pulliam Monocytes/100 WBC (Bld) 8.3 % Normal 1.7-12.0 [facility] Comment on above: Performed By: #### C BC ####[facility] Wlutsljhlv3887 [place] [address]Dr. Garima Pulliam NEUT # 5.1 103/ul Normal 1.4-6.5 [facility] Comment on above: Performed By: #### C BC ####[facility] Kduvcxazja2201 [place] [address]Dr. Garima Pulliam Neutrophils/100 WBC (Bld) 59.0 % Normal 43.0-75.0 [facility] Comment on above: Performed By: #### C BC ####[facility] Nyyhnyzdnx9748 [place] [address]Dr. Garima Pulliam Platelet mean volume (Bld) [Entitic vol] 8.7 fL Critically low 9.5-13.5 [facility] Comment on above: Performed By: #### C BC ####[facility] Uphxebotje2732 [place] [address]Dr. Garima Pulliam PLT 182 103/ul Normal 150-450 [facility] Comment on above: Performed By: #### C BC ####[facility] Jmwmbxullo7466 [place] [address]Dr. Garima Pulliam RBC 4.74 106/ul Normal 4.70-6.10 [facility] Comment on above: Performed By: #### C BC ####[facility] Vqmuejsoxb9879 [place] [address]Dr. Garima Pulliam WBC 8.7 103/ul Normal 4.0-11.0 [facility] Comment on above: Performed By: #### C BC ####[facility] Tquxkmzjhz6599 [place] [address]Dr. Garima Pulliam [facility]25 SARS-CoV-2 (COVID-19) RNA MARIE+probe Ql (Unsp spec) Not detected Normal NOT DETECTED [facility] Comment on above: Result Comment: When [...] for this test is supported by the [place] of Health and Human Service's declaration that [...] be used). Performed By: #### C VDTB ####[facility] Ezyttyiout1837 [place] [address]Dr. Garima Pulliam PROF 14(COMP METB)on 023 Albumin [Mass/Vol] 3.6 g/dL Normal 3.4-5.0 [facility] Comment on above: Performed By: #### C MP, BNP, HSTROPN ####[facility] Rzteomxtcm1227 [place] [address]Dr. Garima Pulliam Albumin/Globulin [Mass ratio] 1.5 {ratio} Normal [facility] [place] Comment on above: Performed By: #### C MP, BNP, HSTROPN ####[facility] Qbhganxjai7188 [place] [address]Dr. Garima Pulliam ALP [Catalytic activity/Vol] 79 U/L Normal 46-116 [facility] Comment on above: Performed By: #### C MP, BNP, HSTROPN ####[facility] Rguvxkcjyh3476 [place] [address]Dr. Garima Pulliam ALT [Catalytic activity/Vol] 27 U/L Normal 16-63 [facility] [place] Comment on above: Performed By: #### C MP, BNP, HSTROPN ####[facility] Jjhsdexebz4255 [place] [address]Dr. Garima Pulliam Anion gap [Moles/Vol] 11.7 mmol/L Normal [facility] Comment on above: Performed By: #### C MP, BNP, HSTROPN ####[facility] Jkjsaxuocz3453 [place] [address]Dr. Garima Pulliam AST [Catalytic activity/Vol] 21 U/L Normal 15-37 [facility] [place] Comment on above: Performed By: #### C MP, BNP, HSTROPN ####[facility] Qnvddflxmm6741 [place] [address]Dr. Garima Pulliam Bilirubin [Mass/Vol] 0.3 mg/dL Normal 0.2-1.0 [facility] [place] Comment on above: Performed By: #### C MP, BNP, HSTROPN ####[facility] Nyiwebgvjc2984[address] [place], [place] [address]Dr. Garima Pulliam Calcium [Mass/Vol] 8.9 mg/dL Normal 8.5-10.1 [facility] Comment on above: Performed By: #### C MP, BNP, HSTROPN ####[facility] Pnutjrwljv9124[address] [place], [place] [address]Dr. Garima Pulliam Chloride [Moles/Vol] 107 mmol/L Normal 98-107 [facility] [place] Comment on above: Performed By: #### C MP, BNP, HSTROPN ####[facility] Ddhvhhlznw189[address] [place], [place] [address]Dr. Garima Pulliam CO2 [Moles/Vol] 26.0 mmol/L Normal 21.0-32.0 [facility] Comment on above: Performed By: #### C MP, BNP, HSTROPN ####[facility] Myrkpjqhgy547[address] [place], [place] [address]Dr. Garima Pulliam Creatinine [Mass/Vol] 0.65 mg/dL Critically low 0.70-1.30 [facility] [place] Comment on above: Performed By: #### C MP, BNP, HSTROPN ####[facility] Ohhgxraxva1176 [place] [address]Dr. Garima Pulliam EGFR-AF TUVALUAN >60 Normal >=60 [facility] Comment on above: Performed By: #### C MP, BNP, HSTROPN ####[facility] Hjurwrwooo4544 [place] [address]Dr. Garima Pulliam EGFR-NON AF TUVALUAN >60 Normal >=60 [facility] [place] Comment on above: Performed By: #### C MP, BNP, HSTROPN ####[facility] Mukhijxary2897[address] [place], [place] [address]Dr. Garima Pulliam Globulin (S) [Mass/Vol] 2.4 g/dL Normal [facility] [place] Comment on above: Performed By: #### C MP, BNP, HSTROPN ####[facility] Pctvexgxyy3568[address] [place], [place] [address]Dr. Garima Pulliam Glucose [Mass/Vol] 85 mg/dL Normal 74-106 [facility] Comment on above: Performed By: #### C MP, BNP, HSTROPN ####[facility] Kinonzkopk1520[address] [place], [place] [address]Dr. Garima Pulliam Potassium [Moles/Vol] 3.7 mmol/L Normal 3.5-5.1 [facility] [place] Comment on above: Performed By: #### C MP, BNP, HSTROPN ####[facility] Ovybbpakbc599[address] [place], [place] [address]Dr. Garima Pulliam Protein [Mass/Vol] 6.0 g/dL Critically low 6.4-8.2 [facility] Comment on above: Performed By: #### C MP, BNP, HSTROPN ####[facility] Totteliyxh56[address] [place], [place] [address]Dr. Garima Pulliam Sodium [Moles/Vol] 141 mmol/L Normal 136-145 [facility] Comment on above: Performed By: #### C MP, BNP, HSTROPN ####[facility] Ahgyurmyvm127[address] [place], [place] [address]Dr. Garima Pulliam Urea nitrogen [Mass/Vol] 5.0 mg/dL Critically low 7.0-18.0 [facility] Comment on above: Performed By: #### C MP, BNP, HSTROPN ####[facility] Osvvqajlbp9344 [place] [address]Dr. Garima Pulliam Urea nitrogen/Creatinine [Mass ratio] 7.7 mg/mg Normal [facility] Comment on above: Performed By: #### C MP, BNP, HSTROPN ####[facility] Lkhhtdckog632[address] [place], [place] [address]Dr. Garima Pulliam PROTIMEon 01-12-2023 INR Coag (PPP) [Relative time] 1.16 {INR} Normal [facility] Comment on above: Performed By: #### P TT, PT ####[facility] X[address]igsmgs[address] [place] [address]. Garima Pulliam INR GUIDELINES SEE BELOW Normal [facility] Comment on above: Result Comment: WESLEY RED INR: 2.0 - 3.0 CONDITIONS NOT LISTED BELOW 2.5 - 3.5 FOR PROSTHETIC HEART VALVE REPLACEMENT 2.5 - 3.5 RECURRENT THROMBOSIS Performed By: #### P TT, PT ####[facility] Prurcjmjmd8[address] [place], [place] [address]Dr. Garima Pulliam PT Coag (PPP) [Time] 12.2 s Critically high 9.0-11.6 [facility] Comment on above: Performed By: #### P TT, PT ####[facility] Yxpopnbfow15[address] [place], [place] [address]Dr. Garima Pulliam PTTon 01-12-2023 aPTT Coag (Bld) [Time] 29.1 s Normal 22.3-36.2 [facility] Comment on above: Performed By: #### P TT, PT ####[facility] Xhdnqnywqg[address] [place], [place] [address]Dr. Garima Pulliam TROPONIN, HIGH SENSITIVITYon 01-12-2023 HSTROP 10.3 pg/mL Normal 4.0-76.1 [facility] Comment on above: Result Comment: CUT- OFF POINTS HAVE BEEN ESTABLISHED BASED ON THE FOURTH UNIVERSAL DEFINITIONS OF MYOCARDIALINFARCTION. THE UPPER REFERENCE LIMIT (URL) OF TROPONIN, DEFINED THE 99TH PERCENTILE OFcTnI DISTRIBUTION IN A REFERENCE POPULATION, HAS BEEN CONFIRMED THE DECISION THRESHOLDFOR MD DIAGNOSIS. Performed By: #### H STROPN ####[facility] Quvogptcei4901 [place] [address]Dr. Garima Pulliam HSTROP 9.2 pg/mL Normal 4.0-76.1 [facility] Comment on above: Result Comment: CUT- OFF POINTS HAVE BEEN ESTABLISHED BASED ON THE FOURTH UNIVERSAL DEFINITIONS OF MYOCARDIALINFARCTION. THE UPPER REFERENCE LIMIT (URL) OF TROPONIN, DEFINED THE 99TH PERCENTILE OFcTnI DISTRIBUTION IN A REFERENCE POPULATION, HAS BEEN CONFIRMED THE DECISION THRESHOLDFOR MD DIAGNOSIS. Performed By: #### C MP, BNP, HSTROPN ####[facility] Ksbtzxcitz4[address] [place] [address]Dr. Garima Pulliam XR CHEST 1 Von 01-12-2023 XR CHEST 1 V Normal [facility] XR CHEST 1 Von 01-01-2023 XR CHEST 1 V Normal [facility] CARDIAC NASH 3-6on 3 CK [Catalytic activity/Vol] 196 U/L Normal 39-308 [facility] [place] Comment on above: Performed By: #### C MREP ####[facility] Jwslcpignh7378 [place] [address]Dr. Garima Pulliam CK.MB [Mass/Vol] 7.41 ng/mL Critically high <=3.60 [facility] Comment on above: Performed By: #### C MREP ####[facility] Gsthinrnac4323 [place] [address]Dr. Garima Pulliam HSTROP 10.3 pg/mL Normal 4.0-76.1 [facility] Comment on above: Result Comment: CUT- OFF POINTS HAVE BEEN ESTABLISHED BASED ON THE FOURTH UNIVERSAL DEFINITIONS OF MYOCARDIALINFARCTION. THE UPPER REFERENCE LIMIT (URL) OF TROPONIN, DEFINED THE 99TH PERCENTILE OFcTnI DISTRIBUTION IN A REFERENCE POPULATION, HAS BEEN CONFIRMED THE DECISION THRESHOLDFOR MD DIAGNOSIS. Performed By: #### C MREP ####[facility] Gujegrtdbh5492 [place] [address]Dr. Garima Pulliam XR CHEST 1 Von 12-26-2022 XR CHEST 1 V Normal [facility] BNPon 12-25-2022 Natriuretic peptide B (Bld) [Mass/Vol] 98.0 pg/mL Normal <=900.0 [facility] Comment on above: Performed By: #### B FREIGHT BREAKER, BMP, CMADM ####[facility] Zftnpufjtl1666 [place] [id number]. Garima Pulliam CARDIAC NASH ADMITon 023 CK [Catalytic activity/Vol] 208 U/L Normal 39-308 [facility] Comment on above: Performed By: #### B FREIGHT BREAKER, BMP, CMADM ####[facility] Zexzrtknem0642 [place] [address]Dr. Garima Pulliam CK.MB [Mass/Vol] 7.63 ng/mL Critically high <=3.60 [facility] Comment on above: Performed By: #### B FREIGHT BREAKER, BMP, CMADM ####[facility] Epuxpuobjt8728 [place] [address]Dr. Garima Pulliam HSTROP 8.8 pg/mL Normal 4.0-76.1 [facility] Comment on above: Result Comment: CUT- OFF POINTS HAVE BEEN ESTABLISHED BASED ON THE FOURTH UNIVERSAL DEFINITIONS OF MYOCARDIALINFARCTION. THE UPPER REFERENCE LIMIT (URL) OF TROPONIN, DEFINED THE 99TH PERCENTILE OFcTnI DISTRIBUTION IN A REFERENCE POPULATION, HAS BEEN CONFIRMED THE DECISION THRESHOLDFOR MD DIAGNOSIS. Performed By: #### B FREIGHT BREAKER, BMP, CMADM ####[facility] Iucrnlhhxp5150 [place] [address]Dr. Garima Pulliam DORIS 83 ng/mL Normal 16-96 [facility] Comment on above: Performed By: #### B FREIGHT BREAKER, BMP, CMADM ####[facility] Dmalwchvpk5629 [place] [id number]. Garima Pulliam CBC AUTO DIFFon 12-25-2022 BASO # 0.0 103/ul Normal 0.0-0.1 [facility] Comment on above: Performed By: #### C BC ####[facility] Ygarqkzssy2212 [place] [address]Dr. Garima Pulliam Basophils/100 WBC (Bld) 0.0 % Critically low 0.2-2.0 [facility] Comment on above: Performed By: #### C BC ####[facility] Ihkdsmgeue9[address] [place], [place] [address]Dr. Garima Pulliam EO # 0.0 103/ul Normal 0.0-0.7 [facility] Comment on above: Performed By: #### C BC ####[facility] Emzmukocxb159234 [address] [place], [place] [address]Dr. Garima Pulliam Eosinophils/100 WBC (Bld) 0.7 % Critically low 0.9-7.0 [facility] [place] Comment on above: Performed By: #### C BC ####[facility] Agayxdjmmp449[address] [place], [place] [address]Dr. Garima Pulliam Erythrocyte distribution width (RBC) [Ratio] 13.4 % Normal 11.0-15.0 [facility] Comment on above: Performed By: #### C BC ####[facility] Rykhvluzey269[address] [place], [place] [address]Dr. Garima Pulliam Hematocrit (Bld) [Volume fraction] 42.9 % Normal 42.0-54.0 [facility] [place] Comment on above: Performed By: #### C BC ####[facility] Zkusxyjnpd00[address] [place], [place] [address]Dr. Chapisrenu Pulliam Hemoglobin (Bld) [Mass/Vol] 14.4 g/dL Normal 14.0-18.0 [facility] Comment on above: Performed By: #### C BC ####[facility] Telpsmicrp4115[address] [place], [place] [address]Dr. Garima Pulliam IG # 0.00 10e3/ul Normal 0.00-0.03 [facility] Comment on above: Performed By: #### C BC ####[facility] Ozuashysow9907[address] [place], [place] [address]Dr. Garima Pulliam IG % 0.0 % Normal 0.0-0.5 [facility] Comment on above: Performed By: #### C BC ####[facility] Ujxtmhriyt0995[address] [place], [place] [address]Dr. Garima Pulliam LYMPH # 2.4 103/ul Normal 1.2-3.8 [facility] [place] Comment on above: Performed By: #### C BC ####[facility] Bjzibjaahz[address] [place] [address]Dr. Garima Pulliam Lymphocytes/100 WBC (Bld) 29.2 % Normal 20.5-60.0 [facility] [place] Comment on above: Performed By: #### C BC ####[facility] Oukgdiylxo9[address] [place] [address]DrAdalberto Pulliam MANUAL DIFF REQ NO Normal [facility] Comment on above: Performed By: #### C BC ####[facility] Hbatgsjxoh5488 [place] [address]Dr. Garima Pulliam MCH (RBC) [Entitic mass] 30.7 pg Normal 25.9-34.0 [facility] [place] Comment on above: Performed By: #### C BC ####[facility] Tbikhaskzc7[address] [place], [place] [address]Dr. Garima Pulliam MCHC (RBC) [Mass/Vol] 33.6 g/dL Normal 29.9-35.2 [facility] Comment on above: Performed By: #### C BC ####[facility] Wfcwcfyawg894[address] [place], [place] [address]DrAdalberto Pulliam MCV (RBC) [Entitic vol] 91.5 fL Normal 80.0-94.0 [facility] Comment on above: Performed By: #### C BC ####[facility] Dtczmdojvp37[address] [place] [address]Dr. Garima Pulliam MONO # 0.0 103/ul Critically low 0.3-0.8 [facility] Comment on above: Performed By: #### C BC ####[facility] Gyxabjkaxj8084[address] [place], [place] [address]DrAdalberto Pulliam Monocytes/100 WBC (Bld) 8.0 % Normal 1.7-12.0 [facility] Comment on above: Performed By: #### C BC ####[facility] Kkizbrjhoc48[address] [place], [place] [address]DrAdalberto Pulliam NEUT # 5.1 103/ul Normal 1.4-6.5 [facility] [place] Comment on above: Performed By: #### C BC ####[facility] Cagcsqbtop23[address] [place] [id number]. Garima Pulliam Neutrophils/100 WBC (Bld) 62.8 % Normal 43.0-75.0 [facility] [place] Comment on above: Performed By: #### C BC ####[facility] Iwqzyifexf5826 [place] [phone]. Garima Pulliam Platelet mean volume (Bld) [Entitic vol] 8.6 fL Critically low 9.5-13.5 [facility] [place] Comment on above: Performed By: #### C BC ####[facility] Kqamxocfoh5981 [place] [address]Dr. Garima Pulliam PLT 200 103/ul Normal 150-450 [facility] Comment on above: Performed By: #### C BC ####[facility] Jtcaxwoyfz5166 [place] [address]Dr. Garima Pulliam RBC 4.69 106/ul Critically low 4.70-6.10 [facility] Comment on above: Performed By: #### C BC ####[facility] Izrtnlwnns3615 [place] [address]Dr. Garima Pulliam WBC 8.2 103/ul Normal 4.0-11.0 [facility] Comment on above: Performed By: #### C BC ####[facility] Zsuyhzevur6256 [place] [phone]. Garima Pulliam [facility]on SARS-CoV-2 (COVID-19) RNA MARIE+probe Ql (Unsp spec) Not detected Normal NOT DETECTED [facility] Comment on above: Result Comment: When [...] for this test is supported by the [place] of Health and Human Service's declaration that [...] be used). Performed By: #### C VDTBH ####[facility] Sqwyotdpkk08[address] [place], [place] [address]Dr. Garima Pulliam INFLUENZA A AND B AGon 12-25 INFLUANE SEE BELOW Normal [facility] [place] Comment on above: Result Comment: Nega tive for Flu A protein angiten. Infection due to Flu A cannot be ruled out. Flu A angiten in the sample may be below the detection limit of the test. Performed By: #### I NFLUAB ####[facility] [address] [place] [address]. Garima Pulliam INFLUBNEGH SEE BELOW Normal [facility] Comment on above: Result Comment: Nega tive for Flu B protein antigen. Infection due to Flu B cannot be ruled out. Flu B antigen in the sample may be below the detection limit of the test. Performed By: #### I NFLUAB ####[facility] Mphaahzuxj34[address] [place], [place] [address]Dr. renu Pulliam INFLUENZA A AG Negative Normal NEGATIVE SEE COMMENT [facility] Comment on above: Performed By: #### I NFLUAB ####[facility] Olyjtgjpfk0[address] [place], [place] [address]Dr. Garima Pulliam INFLUENZA B AG Negative Normal NEGATIVE SEE COMMENT [facility] Comment on above: Performed By: #### I NFLUAB ####[facility] Crssr[address]yae[address] [place] [address]. Garima Pulliam PROF CHEM 8 (BAS METB)on Anion gap [Moles/Vol] 11.1 mmol/L Normal [facility] Comment on above: Performed By: #### B FREIGHT BREAKER, BMP, CMADM ####[facility] Cmprqibkhg9038 [place] [phone]. Garima Pulliam Calcium [Mass/Vol] 8.5 mg/dL Normal 8.5-10.1 [facility] Comment on above: Performed By: #### B FREIGHT BREAKER, BMP, CMADM ####[facility] Mnepffnyoo37[address] [place] [phone]. Garima Pulliam Chloride [Moles/Vol] 106 mmol/L Normal 98-107 [facility] [place] Comment on above: Performed By: #### B FREIGHT BREAKER, BMP, CMADM ####[facility] Mgbmamtsky54[address] [place] [address]Dr. Garima Pulliam CO2 [Moles/Vol] 27.4 mmol/L Normal 21.0-32.0 [facility] Comment on above: Performed By: #### B FREIGHT BREAKER, BMP, CMADM ####[facility] Pckjgiwlkq55[address] [place] [address]Dr. Garima Pulliam Creatinine [Mass/Vol] 0.65 mg/dL Critically low 0.70-1.30 [facility] [place] Comment on above: Performed By: #### B FREIGHT BREAKER, BMP, CMADM ####[facility] Crxqpgcdzy82[address] [place] [address]Dr. Garima Pulliam EGFR-AF TUVALUAN >60 Normal >=60 [facility] Comment on above: Performed By: #### B FREIGHT BREAKER, BMP, CMADM ####[facility] Rtvztsngmd6528 [place] [address]Dr. Garima Pulliam EGFR-NON AF TUVALUAN >60 Normal >=60 [facility] Comment on above: Performed By: #### B FREIGHT BREAKER, BMP, CMADM ####[facility] Ltdlbxauuc1681 [place] [address]Dr. Garima Pulliam Glucose [Mass/Vol] 140 mg/dL Critically high 74-106 [facility] Comment on above: Performed By: #### B FREIGHT BREAKER, BMP, CMADM ####[facility] Qcccgsprnu1438 [place] [address]Dr. Garima Pulliam Potassium [Moles/Vol] 3.5 mmol/L Normal 3.5-5.1 [facility] [place] Comment on above: Performed By: #### B FREIGHT BREAKERMARVIN, NANCY ####[facility] Xxdgmzlgwe4[address] [place] [address]Dr. Chapisrenu Pulliam Sodium [Moles/Vol] 141 mmol/L Normal 136-145 [facility] Comment on above: Performed By: #### B FREIGHT BREAKERMARVIN, CMAANA ROSA ####[facility] Haufvzsfwu[address] [place] [address]Dr. Garima Pulliam Urea nitrogen [Mass/Vol] 8.0 mg/dL Normal 7.0-18.0 [facility] [place] Comment on above: Performed By: #### B MARVIN FRENCH CMADM ####[facility] Zqtouptsnb4239 [place] [address]Dr. Garima Pulliam Urea nitrogen/Creatinine [Mass ratio] 12.3 mg/mg Normal [facility] Comment on above: Performed By: #### B MARVIN FRENCH CMAANA ROSA ####[facility] Cffawnifqr50[address] [place] [address]Dr. Garima Heraclio CARDIAC NASH ADMITon 023 CK [Catalytic activity/Vol] 165 U/L Normal 39-308 [facility] Comment on above: Performed By: #### B NANCY HERNANDEZ ####[facility] Sqegtpsafk7[address] [place], [place] [address]Dr. Garima Pulliam CK.MB [Mass/Vol] 6.48 ng/mL Critically high <=3.60 [facility] Comment on above: Performed By: #### B MP, CMADM ####[facility] Lvbqhjjfha[address] [place], [place] [address]Dr. Garima Heraclio HSTROP 11.7 pg/mL Normal 4.0-76.1 [facility] Comment on above: Result Comment: CUT- OFF POINTS HAVE BEEN ESTABLISHED BASED ON THE FOURTH UNIVERSAL DEFINITIONS OF MYOCARDIALINFARCTION. THE UPPER REFERENCE LIMIT (URL) OF TROPONIN, DEFINED THE 99TH PERCENTILE OFcTnI DISTRIBUTION IN A REFERENCE POPULATION, HAS BEEN CONFIRMED THE DECISION THRESHOLDFOR MD DIAGNOSIS. Performed By: #### B DAVID, CMADM ####[facility] Dspxomowyh60[address] [place] [phone]. Garima Pulliam DORIS 83 ng/mL Normal 16-96 [facility] Comment on above: Performed By: #### B MP, CMADM ####[facility] Urdzadrvup5356 [place] [address]Dr. Garima Pulliam CBC AUTO DIFFon 12-10-2022 BASO # 0.0 103/ul Normal 0.0-0.1 [facility] Comment on above: Performed By: #### C BC ####[facility] Tyjfsrvgml2168 [place] [address]Dr. Garima Pulliam Basophils/100 WBC (Bld) 0.3 % Normal 0.2-2.0 [facility] Comment on above: Performed By: #### C BC ####[facility] Gdjdjpzmal8[address] [place] [address]Dr. Garima Pulliam EO # 0.1 103/ul Normal 0.0-0.7 [facility] Comment on above: Performed By: #### C BC ####[facility] Adtgswnueb1120 [place] [address]Dr. Garima Pulliam Eosinophils/100 WBC (Bld) 0.4 % Critically low 0.9-7.0 [facility] Comment on above: Performed By: #### C BC ####[facility] Gxltjgasge7720 [place] [address]Dr. Garima Pulliam Erythrocyte distribution width (RBC) [Ratio] 13.2 % Normal 11.0-15.0 [facility] Comment on above: Performed By: #### C BC ####[facility] Dffvaljivd[address] [place], [place] [address]Dr. Garima Pulliam Hematocrit (Bld) [Volume fraction] 42.4 % Normal 42.0-54.0 [facility] Comment on above: Performed By: #### C BC ####[facility] Kxdokggrte213[address] [place], [place] [address]Dr. Garima Pulliam Hemoglobin (Bld) [Mass/Vol] 14.4 g/dL Normal 14.0-18.0 [facility] Comment on above: Performed By: #### C BC ####[facility] Tdrmdjvjyh3933 [place] [address]Dr. Garima Pulliam IG # 0.05 10e3/ul Critically high 0.00-0.03 [facility] Comment on above: Performed By: #### C BC ####[facility] Ltefqmpzdl2228 [place] [address]Dr. Garima Pulliam IG % 0.4 % Normal 0.0-0.5 [facility] Comment on above: Performed By: #### C BC ####[facility] Deijpsijoj0508 [place] [address]Dr. Garima Pulliam LYMPH # 0.8 103/ul Critically low 1.2-3.8 [facility] Comment on above: Performed By: #### C BC ####[facility] Tykdjuprvn5365 [place] [address]Dr. Garima Pulliam Lymphocytes/100 WBC (Bld) 6.5 % Critically low 20.5-60.0 [facility] Comment on above: Performed By: #### C BC ####[facility] Swstnuscld9996 [place] [address]Dr. Garima Pulliam MANUAL DIFF REQ NO Normal [facility] Comment on above: Performed By: #### C BC ####[facility] Zkxydaausb6747 [place] [address]Dr. Garima Pulliam MCH (RBC) [Entitic mass] 30.5 pg Normal 25.9-34.0 [facility] Comment on above: Performed By: #### C BC ####[facility] Suympjhafp[address] [place], [place] [address]Dr. Garima Pulliam MCHC (RBC) [Mass/Vol] 34.0 g/dL Normal 29.9-35.2 [facility] Comment on above: Performed By: #### C BC ####[facility] Xbpirrltpa7[address] [place], [place] [address]Dr. Garima Pulliam MCV (RBC) [Entitic vol] 89.8 fL Normal 80.0-94.0 [facility] Comment on above: Performed By: #### C BC ####[facility] Evfptmzgme8327 [place] [address]Dr. Garima Pulliam MONO # 0.2 103/ul Critically low 0.3-0.8 [facility] Comment on above: Performed By: #### C BC ####[facility] Dadobmewpx0464 [place] [address]Dr. Garima Pulliam Monocytes/100 WBC (Bld) 2.0 % Normal 1.7-12.0 [facility] Comment on above: Performed By: #### C BC ####[facility] Keajpthrjz1945 [place] [address]Dr. Garima Pulliam NEUT # 10.5 103/ul Critically high 1.4-6.5 [facility] Comment on above: Performed By: #### C BC ####[facility] Hxqzysktww2264 [place] [address]Dr. Garima Pulliam Neutrophils/100 WBC (Bld) 90.4 % Critically high 43.0-75.0 [facility] Comment on above: Performed By: #### C BC ####[facility] Fuyptqrwui3441 [place] [address]Dr. Garima Pulliam Platelet mean volume (Bld) [Entitic vol] 9.4 fL Critically low 9.5-13.5 [facility] Comment on above: Performed By: #### C BC ####[facility] Bnbmgaepup0446 [place] [address]Dr. Garima Pulliam PLT 198 103/ul Normal 150-450 [facility] Comment on above: Performed By: #### C BC ####[facility] Qnliyyfrjc6796 [place] [address]Dr. Garima Pulliam RBC 4.72 106/ul Normal 4.70-6.10 [facility] Comment on above: Performed By: #### C BC ####[facility] Yecdphzjuq9366 [place] [address]Dr. Garima Pulliam WBC 11.6 103/ul Critically high 4.0-11.0 [facility] Comment on above: Performed By: #### C BC ####[facility] Nvippeglio0565 [place] [address]Dr. Garima Pulliam PROF CHEM 8 (BAS METB)on Anion gap [Moles/Vol] 11.3 mmol/L Normal [facility] Comment on above: Performed By: #### B DAVID, CMADM ####[facility] Pwmypeuult4207 [place] [address]Dr. Garima Pulliam Calcium [Mass/Vol] 8.9 mg/dL Normal 8.5-10.1 [facility] Comment on above: Performed By: #### B DAVID, NANCY ####[facility] Zirynoefan0004 [place] [address]Dr. Garima Pulliam Chloride [Moles/Vol] 103 mmol/L Normal 98-107 [facility] Comment on above: Performed By: #### B DAVID, CMADM ####[facility] Hixynrbawd32[address] [place], [place] [address]Dr. Garima Pulliam CO2 [Moles/Vol] 28.2 mmol/L Normal 21.0-32.0 [facility] Comment on above: Performed By: #### Trae HERNANDEZ, NANCY ####[facility] Lhyjjdbbdd1544 [place] [address]Dr. Garima Pulliam Creatinine [Mass/Vol] 0.60 mg/dL Critically low 0.70-1.30 [facility] Comment on above: Performed By: #### Trae HERNANDEZ, CMAANA ROSA ####[facility] Pysfexneht9696 [place] [address]Dr. Garima Pulliam EGFR-AF TUVALUAN >60 Normal >=60 [facility] Comment on above: Performed By: #### B DAVID, CMAANA ROSA ####[facility] Fygmxwpysv8973 [place] [address]Dr. Garima Pulliam EGFR-NON AF TUVALUAN >60 Normal >=60 [facility] Comment on above: Performed By: #### B DAVID, CMADM ####[facility] Fzlgyfnhrv0632 [place] [address]Dr. Garima Pulliam Glucose [Mass/Vol] 166 mg/dL Critically high 74-106 [facility] Comment on above: Performed By: #### B DAVID, CMADM ####[facility] Vzyzturmlw8380 [place] [address]Dr. Garima Pulliam Potassium [Moles/Vol] 3.5 mmol/L Normal 3.5-5.1 [facility] Comment on above: Performed By: #### B DAVID, CMADM ####[facility] Dhrfvirdbl[address] [place], [place] [address]Dr. Garima Pulliam Sodium [Moles/Vol] 139 mmol/L Normal 136-145 [facility] Comment on above: Performed By: #### B DAVID, CMADM ####[facility] Ieznkpgucs1905[address] [place], [place] [address]Dr. Chapisrenu Heraclio Urea nitrogen [Mass/Vol] 9.0 mg/dL Normal 7.0-18.0 [facility] Comment on above: Performed By: #### B DAVID, CMAANA ROSA ####[facility] Tywnokwrdo7590[address] [place], [place] [address]Dr. Garima Pulliam Urea nitrogen/Creatinine [Mass ratio] 15.0 mg/mg Normal [facility] Comment on above: Performed By: #### B DAVID, CMAANA ROSA ####[facility] Tuihrvozhs[address]74[address] [place], [place] [address]Dr. Garima Heraclio XR CHEST 1 Von 12-10-2022 XR CHEST 1 V Normal [facility] BNPon 11-27-2022 Natriuretic peptide B (Bld) [Mass/Vol] 95.0 pg/mL Normal <=900.0 [facility] Comment on above: Performed By: #### C MP, HSTROPN, BNP ####[facility] Pqrzfkjmhn38[address] [place], [place] [address]Dr. Garima Pulliam CBC AUTO DIFFon 11-27-2022 BASO # 0.0 103/ul Normal 0.0-0.1 [facility] Comment on above: Performed By: #### C BC ####[facility] Jfhzzwdklt2940[address] [place], [place] [address]Dr. Garima Pulliam Basophils/100 WBC (Bld) 0.2 % Normal 0.2-2.0 [facility] Comment on above: Performed By: #### C BC ####[facility] Imqpcqutlx4375 [place] [address]Dr. Garima Pulliam EO # 0.2 103/ul Normal 0.0-0.7 [facility] Comment on above: Performed By: #### C BC ####[facility] Skmdoiisut2000 [place] [address]Dr. Garima Pulliam Eosinophils/100 WBC (Bld) 2.0 % Normal 0.9-7.0 [facility] Comment on above: Performed By: #### C BC ####[facility] Myigjwhtjr4017[address] [place], [place] [address]Dr. Garima Pulliam Erythrocyte distribution width (RBC) [Ratio] 13.2 % Normal 11.0-15.0 [facility] Comment on above: Performed By: #### C BC ####[facility] Bstpyicuwc6299[address] [place], [place] [address]Dr. Garima Pulliam Hematocrit (Bld) [Volume fraction] 42.4 % Normal 42.0-54.0 [facility] Comment on above: Performed By: #### C BC ####[facility] Txeixlggty4[address] [place], [place] [address]Dr. Garima Pulliam Hemoglobin (Bld) [Mass/Vol] 14.4 g/dL Normal 14.0-18.0 [facility] Comment on above: Performed By: #### C BC ####[facility] Qllizyosfr262[address] [place], [place] [address]Dr. Garima Pulliam IG # 0.04 10e3/ul Critically high 0.00-0.03 [facility] Comment on above: Performed By: #### C BC ####[facility] Nmukdzjkqc2179[address] [place], [place] [address]Dr. Garima Pulliam IG % 0.4 % Normal 0.0-0.5 [facility] Comment on above: Performed By: #### C BC ####[facility] Jpryjbjjgi755[address] [place], [place] [address]Dr. Garima Pulliam LYMPH # 2.2 103/ul Normal 1.2-3.8 [facility] Comment on above: Performed By: #### C BC ####[facility] Vzcgqcqmyt2748 [place] [address]Dr. Chapisrenu Pulliam Lymphocytes/100 WBC (Bld) 21.5 % Normal 20.5-60.0 [facility] Comment on above: Performed By: #### C BC ####[facility] Llzroeqtty6161 [place] [address]Dr. Garima Pulliam MANUAL DIFF REQ NO Normal [facility] Comment on above: Performed By: #### C BC ####[facility] Fvclqugvhe7142 [place] [address]Dr. Garima Pulliam MCH (RBC) [Entitic mass] 30.4 pg Normal 25.9-34.0 [facility] Comment on above: Performed By: #### C BC ####[facility] Hpuihvoumc1299 [place] [address]Dr. Garima Pulliam MCHC (RBC) [Mass/Vol] 34.0 g/dL Normal 29.9-35.2 [facility] Comment on above: Performed By: #### C BC ####[facility] Grwjdkdwsu6343 [place] [address]Dr. Garima Pulliam MCV (RBC) [Entitic vol] 89.6 fL Normal 80.0-94.0 [facility] Comment on above: Performed By: #### C BC ####[facility] Ersocizaqx6228 [place] [address]Dr. Garima Pulliam MONO # 0.8 103/ul Normal 0.3-0.8 [facility] Comment on above: Performed By: #### C BC ####[facility] Qitayfgxxe1064 [place] [address]Dr. Garima Pulliam Monocytes/100 WBC (Bld) 7.7 % Normal 1.7-12.0 [facility] Comment on above: Performed By: #### C BC ####[facility] Vaiykaqehd6261 [place] [address]Dr. Garima Pulliam NEUT # 7.0 103/ul Critically high 1.4-6.5 [facility] Comment on above: Performed By: #### C BC ####[facility] Cchkdglmkq7661 [place] [address]Dr. Garima Pulliam Neutrophils/100 WBC (Bld) 68.2 % Normal 43.0-75.0 [facility] Comment on above: Performed By: #### C BC ####[facility] Mefasghjkd1789 [place] [address]Dr. Garima Pulliam Platelet mean volume (Bld) [Entitic vol] 8.9 fL Critically low 9.5-13.5 [facility] Comment on above: Performed By: #### C BC ####[facility] Eteceryvaa9803 [place] [address]Dr. Garima Pulliam PLT 222 103/ul Normal 150-450 [facility] Comment on above: Performed By: #### C BC ####[facility] Yymltkgxyb2287 [place] [address]Dr. Garima Pulliam RBC 4.73 106/ul Normal 4.70-6.10 [facility] Comment on above: Performed By: #### C BC ####[facility] Bpmoyjzoay24[address] [place], [place] [address]Dr. Garima Pulliam WBC 10.3 103/ul Normal 4.0-11.0 [facility] [place] Comment on above: Performed By: #### C BC ####[facility] [address]cra[address] [place] [address]DrAdalberto uPlliam PROF 14(COMP METB)on 023 Albumin [Mass/Vol] 3.7 g/dL Normal 3.4-5.0 [facility] Comment on above: Performed By: #### C MP, HSTROPN, BNP ####[facility] Mvhlvrkewi3934 [place] [id number]. Garima Pulliam Albumin/Globulin [Mass ratio] 1.5 {ratio} Normal [facility] [place] Comment on above: Performed By: #### C MP, HSTROPN, BNP ####[facility] Crwtucewcn8783 [place] [phone] Pulliam ALP [Catalytic activity/Vol] 79 U/L Normal 46-116 [facility] [place] Comment on above: Performed By: #### C DAVID HSTROPN, BNP ####[facility] Ztiuvatazh6[address] [place] [address]Dr. Garima Pulliam ALT [Catalytic activity/Vol] 32 U/L Normal 16-63 [facility] [place] Comment on above: Performed By: #### C DAVID, HSTROPN, BNP ####[facility] Kvgetuebet9968 [place] [address]Dr. Garima Pulliam Anion gap [Moles/Vol] 9.5 mmol/L Normal [facility] [place] Comment on above: Performed By: #### C DAVID HSTROPN, BNP ####[facility] Diknswcsjw[address] [place], [place] [address]Dr. Garima Pulliam AST [Catalytic activity/Vol] 25 U/L Normal 15-37 [facility] [place] Comment on above: Performed By: #### C DAVID, HSTROPN, BNP ####[facility] Ysxsfwyxbu[address] [place], [place] [address]Dr. Garima Pulliam Bilirubin [Mass/Vol] 0.4 mg/dL Normal 0.2-1.0 [facility] [place] Comment on above: Performed By: #### C DAVID HSTROPN, BNP ####[facility] Bsxeuusnll[address] [place], [place] [address]Dr. Garima Pulliam Calcium [Mass/Vol] 8.9 mg/dL Normal 8.5-10.1 [facility] Comment on above: Performed By: #### C DAVID, HSTROPN, BNP ####[facility] Jdktuqmqlt2329 [place] [address]Dr. Garima Pulliam Chloride [Moles/Vol] 103 mmol/L Normal 98-107 [facility] Comment on above: Performed By: #### C DAVID, HSTROPN, BNP ####[facility] Pzhsksjbmw7468 [place] [address]Dr. Garima Pulliam CO2 [Moles/Vol] 28.6 mmol/L Normal 21.0-32.0 [facility] Comment on above: Performed By: #### C MP, HSTROPN, BNP ####[facility] Ljrqiteacs7407 [place] [address]Dr. Garima Pulliam Creatinine [Mass/Vol] 0.72 mg/dL Normal 0.70-1.30 [facility] [place] Comment on above: Performed By: #### C MP, HSTROPN, BNP ####[facility] Ahyqssnloo55[address] [place] [address]Dr. Garima Pulliam EGFR-AF TUVALUAN >60 Normal >=60 [facility] Comment on above: Performed By: #### C MP, HSTROPN, BNP ####[facility] Fhskkfvhfn758[address] [place], [place] [address]Dr. Garima Pulliam EGFR-NON AF TUVALUAN >60 Normal >=60 [facility] [place] Comment on above: Performed By: #### C MP, HSTROPN, BNP ####[facility] Cthlokefex65[address] [place], [place] [address]Dr. Garima Pulliam Globulin (S) [Mass/Vol] 2.5 g/dL Normal [facility] [place] Comment on above: Performed By: #### C MP, HSTROPN, BNP ####[facility] Sgrabbaqee67[address] [place], [place] [address]Dr. Garima Pulliam Glucose [Mass/Vol] 114 mg/dL Critically high 74-106 T [facility] Comment on above: Performed By: #### C MP, HSTROPN, BNP ####[facility] Bqsnpcpldr86[address] [place], [place] [address]Dr. Garima Pulliam Potassium [Moles/Vol] 4.1 mmol/L Normal 3.5-5.1 [facility] [place] Comment on above: Performed By: #### C MP, HSTROPN, BNP ####[facility] Hwahassraw[address] [place], [place] [address]Dr. Garima Pulliam Protein [Mass/Vol] 6.2 g/dL Critically low 6.4-8.2 [facility] Comment on above: Performed By: #### C MP, HSTROPN, BNP ####[facility] Waotbetafi9395 [place] [address]Dr. Garima Pulliam Sodium [Moles/Vol] 137 mmol/L Normal 136-145 [facility] Comment on above: Performed By: #### C MP, HSTROPN, BNP ####[facility] Iyuvjmpoyl4355 [place] [address]Dr. Garima Pulliam Urea nitrogen [Mass/Vol] 13.0 mg/dL Normal 7.0-18.0 [facility] Comment on above: Performed By: #### C MP, HSTROPN, BNP ####[facility] Rhfuegbdye4564 [place] [address]Dr. Chapisrenu Pulliam Urea nitrogen/Creatinine [Mass ratio] 18.1 mg/mg Normal [facility] [place] Comment on above: Performed By: #### C MP, HSTROPN, BNP ####[facility] Xheldxjpho0814[address] [place], [place] [address]Dr. Garima Pulliam TROPONIN, HIGH SENSITIVITYon 11-27-2022 HSTROP 11.8 pg/mL Normal 4.0-76.1 [facility] [place] Comment on above: Result Comment: CUT- OFF POINTS HAVE BEEN ESTABLISHED BASED ON THE FOURTH UNIVERSAL DEFINITIONS OF MYOCARDIALINFARCTION. THE UPPER REFERENCE LIMIT (URL) OF TROPONIN, DEFINED THE 99TH PERCENTILE OFcTnI DISTRIBUTION IN A REFERENCE POPULATION, HAS BEEN CONFIRMED THE DECISION THRESHOLDFOR MD DIAGNOSIS. Performed By: #### C MP, HSTROPN, BNP ####[facility] Idqinpjtby27[address] [place] [address]Dr. Garmia Pulliam XR CHEST 1 Von 11-27-2022 XR CHEST 1 V Normal [facility] BNPon 11-20-2022 Natriuretic peptide B (Bld) [Mass/Vol] 73.0 pg/mL Normal <=900.0 [facility] Comment on above: Performed By: #### B MP, HSTROPN, BNP ####[facility] Qzthuhnure87[address] [place], [place] [address]Dr. Chapisrenu Pulliam CBC AUTO DIFFon 11-20-2022 BASO # 0.0 103/ul Normal 0.0-0.1 [facility] [place] Comment on above: Performed By: #### C BC ####[facility] Buqdxgitwx9827 [place] [id number]. Garima Pulliam Basophils/100 WBC (Bld) 0.3 % Normal 0.2-2.0 [facility] Comment on above: Performed By: #### C BC ####[facility] Yqks[address] [place], [place] [address]Dr. Garima Pulliam EO # 0.2 103/ul Normal 0.0-0.7 [facility] Comment on above: Performed By: #### C BC ####[facility] Jpqhtqozkq[address] [place], [place] [address]Dr. Garima Pulliam Eosinophils/100 WBC (Bld) 2.1 % Normal 0.9-7.0 [facility] Comment on above: Performed By: #### C BC ####[facility] Istobuazty40[address] [place], [place] [address]Dr. Garima Pulliam Erythrocyte distribution width (RBC) [Ratio] 13.2 % Normal 11.0-15.0 [facility] [place] Comment on above: Performed By: #### C BC ####[facility] Agymketejp[address] [place], [place] [address]Dr. Garima Pulliam Hematocrit (Bld) [Volume fraction] 43.4 % Normal 42.0-54.0 [facility] [place] Comment on above: Performed By: #### C BC ####[facility] Qutyuiqhfn[address] [place], [place] [address]Dr. Garima Pulliam Hemoglobin (Bld) [Mass/Vol] 14.6 g/dL Normal 14.0-18.0 [facility] Comment on above: Performed By: #### C BC ####[facility] Habhnvacay[address] [place], [place] [address]Dr. Garima Pulliam IG # 0.02 10e3/ul Normal 0.00-0.03 [facility] Comment on above: Performed By: #### C BC ####[facility] Ksnypdhebf[address] [place], [place] [address]Dr. Garima Pulliam IG % 0.2 % Normal 0.0-0.5 [facility] Comment on above: Performed By: #### C BC ####[facility] Ylmerimnry2482 [place] [address]Dr. Chapisrenu Heraclio LYMPH # 2.1 103/ul Normal 1.2-3.8 [facility] [place] Comment on above: Performed By: #### C BC ####[facility] Wutzydclys2740 [place] [address]Dr. Garima Pulliam Lymphocytes/100 WBC (Bld) 19.2 % Critically low 20.5-60.0 [facility] [place] Comment on above: Performed By: #### C BC ####[facility] Aevfksnhiu5267 [place] [address]Dr. Garima Pulliam MANUAL DIFF REQ NO Normal [facility] Comment on above: Performed By: #### C BC ####[facility] Vebblcisub7150 [place] [address]Dr. Garima Pulliam MCH (RBC) [Entitic mass] 30.4 pg Normal 25.9-34.0 [facility] [place] Comment on above: Performed By: #### C BC ####[facility] Ckrftssnqq8280 [place] [address]Dr. Garima Pulliam MCHC (RBC) [Mass/Vol] 33.6 g/dL Normal 29.9-35.2 [facility] [place] Comment on above: Performed By: #### C BC ####[facility] Rrphxrjqwe3334 [place] [address]Dr. Garima Pulliam MCV (RBC) [Entitic vol] 90.4 fL Normal 80.0-94.0 [facility] [place] Comment on above: Performed By: #### C BC ####[facility] Thdpchnpvb36[address] [place] [address]Dr. Garima Pulliam MONO # 0.6 103/ul Normal 0.3-0.8 [facility] Comment on above: Performed By: #### C BC ####[facility] Vglobyghmu8326 [place] [address]Dr. Garima Pulliam Monocytes/100 WBC (Bld) 5.8 % Normal 1.7-12.0 [facility] [place] Comment on above: Performed By: #### C BC ####[facility] Argnboukzz0356 [place] [address]Dr. Garima Pulliam NEUT # 7.8 103/ul Critically high 1.4-6.5 [facility] Comment on above: Performed By: #### C BC ####[facility] Ixuvrxcrsb8923 [place] [address]Dr. Garima Pulliam Neutrophils/100 WBC (Bld) 72.4 % Normal 43.0-75.0 [facility] Comment on above: Performed By: #### C BC ####[facility] Upbkdprmnk8159 [place] [address]Dr. Garima Pulliam Platelet mean volume (Bld) [Entitic vol] 8.7 fL Critically low 9.5-13.5 [facility] Comment on above: Performed By: #### C BC ####[facility] Qlfdtwjsda9905 [place] [address]Dr. Garima Pulliam PLT 184 103/ul Normal 150-450 [facility] Comment on above: Performed By: #### C BC ####[facility] Roqbdnfncd6887 [place] [address]Dr. Garima Pulliam RBC 4.80 106/ul Normal 4.70-6.10 [facility] Comment on above: Performed By: #### C BC ####[facility] Idtoxeaqig2846 [place] [address]Dr. Garima Pulliam WBC 10.8 103/ul Normal 4.0-11.0 [facility] Comment on above: Performed By: #### C BC ####[facility] Gpkxoqwmns[address] [place], [place] [address]Dr. Garima Pulliam Covid-19 PCR (CVDTB)on 10-24 SARS-CoV-2 (COVID-19) RNA MARIE+probe Ql (Unsp spec) Not detected Normal NOT DETECTED [facility] Comment on above: Result Comment: When [...] for this test is supported by the [employer] of Health and Human Service's declaration that [...] be used). Performed By: #### C VDTB ####[facility] Hjocvmdsyu88[address] [place], [place] [address]Dr. Garima Pulliam INFLUENZA A AND B AGon 11-20 [facility] SEE BELOW Normal [facility] Comment on above: Result Comment: Nega tive for Flu A protein angiten. Infection due to Flu A cannot be ruled out. Flu A angiten in the sample may be below the detection limit of the test. Performed By: #### I NFLUAB ####[facility] Iejtzazcpo[address] [place], [place] [address]Dr. Garima Pulliam INFLUBNEG SEE BELOW Normal [facility] Comment on above: Result Comment: Nega tive for Flu B protein antigen. Infection due to Flu B cannot be ruled out. Flu B antigen in the sample may be below the detection limit of the test. Performed By: #### I NFLUAB ####[facility] Qqlfrzimxl58[address] [place], [place] [address]Dr. Garima Pulliam INFLUENZA A AG Negative Normal NEGATIVE SEE COMMENT [facility] Comment on above: Performed By: #### I NFLUAB ####[facility] Hksaedfcmn9[address] [place], [place] [address]Dr. Garima Pulliam INFLUENZA B AG Negative Normal NEGATIVE SEE COMMENT [facility] [place] Comment on above: Performed By: #### I NFLUAB ####[facility] Ricgnsiaxr2232[address] [place], [place] [address]Dr. Garima Pulliam PROF CHEM 8 (BAS METB)on Anion gap [Moles/Vol] 8.2 mmol/L Normal [facility] [place] Comment on above: Performed By: #### B MP, HSTROPN, BNP ####[facility] Khbtbyxlfs1769 [place] [address]Dr. Garima Pulliam Calcium [Mass/Vol] 8.7 mg/dL Normal 8.5-10.1 [facility] Comment on above: Performed By: #### B MP, HSTROPN, BNP ####[facility] Mwbehbprko7163 [place] [address]Dr. Garima Pulliam Chloride [Moles/Vol] 103 mmol/L Normal 98-107 [facility] [place] Comment on above: Performed By: #### B MP, HSTROPN, BNP ####[facility] Tytmbbbqod9225 [place] [address]Dr. Garima Pulliam CO2 [Moles/Vol] 29.4 mmol/L Normal 21.0-32.0 [facility] Comment on above: Performed By: #### B MP, HSTROPN, BNP ####[facility] Xsdssawkio7[address] [place], [place] [address]Dr. Garima Pulliam Creatinine [Mass/Vol] 0.69 mg/dL Critically low 0.70-1.30 [facility] [place] Comment on above: Performed By: #### B MP, HSTROPN, BNP ####[facility] Hlszkhexmo58[address] [place] [address]Dr. Garima Pulliam EGFR-AF TUVALUAN >60 Normal >=60 [facility] Comment on above: Performed By: #### B MP, HSTROPN, BNP ####[facility] Weueyftaoo[address] [place], [place] [address]Dr. Garima Pulliam EGFR-NON AF TUVALUAN >60 Normal >=60 [facility] [place] Comment on above: Performed By: #### B MP, HSTROPN, BNP ####[facility] Yymbbvpelt0276 [place] [address]Dr. Chapisrenu Pulliam Glucose [Mass/Vol] 209 mg/dL Critically high 74-106 [facility] Comment on above: Performed By: #### B MP, HSTROPN, BNP ####[facility] Oozufzrasd0229 [place] [address]Dr. Garima Pulliam Potassium [Moles/Vol] 3.6 mmol/L Normal 3.5-5.1 [facility] [place] Comment on above: Performed By: #### B MP, HSTROPN, BNP ####[facility] Rhkkynjovh8166 [place] [address]Dr. Garima Pulliam Sodium [Moles/Vol] 137 mmol/L Normal 136-145 [facility] Comment on above: Performed By: #### B MP, HSTROPN, BNP ####[facility] Erlfkcovys2670 [place] [address]Dr. Garima Pulliam Urea nitrogen [Mass/Vol] 11.0 mg/dL Normal 7.0-18.0 [facility] [place] Comment on above: Performed By: #### B MP, HSTROPN, BNP ####[facility] Hrrwjejjjl4032 [place] [address]Dr. Garima Pulliam Urea nitrogen/Creatinine [Mass ratio] 15.9 mg/mg Normal [facility] [place] Comment on above: Performed By: #### B MP, HSTROPN, BNP ####[facility] Jdmemxzzrn7379 [place] [address]Dr. Garima Pulliam TROPONIN, HIGH SENSITIVITYon 11-20-2022 HSTROP 8.7 pg/mL Normal 4.0-76.1 [facility] [place] Comment on above: Result Comment: CUT- OFF POINTS HAVE BEEN ESTABLISHED BASED ON THE FOURTH UNIVERSAL DEFINITIONS OF MYOCARDIALINFARCTION. THE UPPER REFERENCE LIMIT (URL) OF TROPONIN, DEFINED THE 99TH PERCENTILE OFcTnI DISTRIBUTION IN A REFERENCE POPULATION, HAS BEEN CONFIRMED THE DECISION THRESHOLDFOR MD DIAGNOSIS. Performed By: #### B MP, HSTROPN, BNP ####[facility] Demavsjurn9968 [place] [address]Dr. Garima Pulliam XR CHEST 1 Von 11-20-2022 XR CHEST 1 V Normal [facility] XR CHEST 1 Von 10-02-2022 XR CHEST 1 V Normal [facility] BNPon 09-29-2022 Natriuretic peptide B (Bld) [Mass/Vol] 107.0 pg/mL Normal <=900.0 [facility] Comment on above: Performed By: #### C MP, BNP, CMADM ####[facility] Tyxyrsoxah2796 [place] [address]Dr. Garima Pulliam CARDIAC NASH ADMITon 022 CK [Catalytic activity/Vol] 190 U/L Normal 39-308 [facility] Comment on above: Performed By: #### C MP, BNP, CMADM ####[facility] Btdbjbvaht3655 [place] [address]Dr. Garima Pulliam CK.MB [Mass/Vol] 11.11 ng/mL Critically high <=3.60 [facility] Comment on above: Performed By: #### C MP, BNP, CMADM ####[facility] Gmuiiqkwsp3529 [place] [address]Dr. Garima Pulliam HSTROP 11.8 pg/mL Normal 4.0-76.1 [facility] Comment on above: Result Comment: CUT- OFF POINTS HAVE BEEN ESTABLISHED BASED ON THE FOURTH UNIVERSAL DEFINITIONS OF MYOCARDIALINFARCTION. THE UPPER REFERENCE LIMIT (URL) OF TROPONIN, DEFINED THE 99TH PERCENTILE OFcTnI DISTRIBUTION IN A REFERENCE POPULATION, HAS BEEN CONFIRMED THE DECISION THRESHOLDFOR MD DIAGNOSIS. Performed By: #### C MP, BNP, CMADM ####[facility] Ogvyfjqged28[address] [place] [address]Dr. Garima Pulliam DORIS 133 ng/mL Critically high 16-96 [facility] Comment on above: Performed By: #### C MP, BNP, CMADM ####[facility] Ftgvnxvnht7991 [place] [address]Dr. Garima Pulliam CBC AUTO DIFFon 09-29-2022 BASO # 0.0 103/ul Normal 0.0-0.1 [facility] Comment on above: Performed By: #### C BC ####[facility] Ccfvxyqrzi7341 [place] [address]Dr. Garima Pulliam Basophils/100 WBC (Bld) 0.2 % Normal 0.2-2.0 [facility] Comment on above: Performed By: #### C BC ####[facility] Zzchaylvpv1685 [place] [address]Dr. Garima Pulliam EO # 0.1 103/ul Normal 0.0-0.7 [facility] [place] Comment on above: Performed By: #### C BC ####[facility] Agcffjzbeq9057 [place] [address]Dr. Garima Pulliam Eosinophils/100 WBC (Bld) 1.4 % Normal 0.9-7.0 [facility] [place] Comment on above: Performed By: #### C BC ####[facility] Inmwblleph4026 [place] [address]Dr. Garima Pulliam Erythrocyte distribution width (RBC) [Ratio] 13.7 % Normal 11.0-15.0 [facility] [place] Comment on above: Performed By: #### C BC ####[facility] Gwvftxphar[address] [place], [place] [address]Dr. Garima Pulliam Hematocrit (Bld) [Volume fraction] 45.4 % Normal 42.0-54.0 [facility] [place] Comment on above: Performed By: #### C BC ####[facility] Pmxkyocowg49[address] [place], [place] [address]Dr. Garima Pulliam Hemoglobin (Bld) [Mass/Vol] 14.8 g/dL Normal 14.0-18.0 [facility] [place] Comment on above: Performed By: #### C BC ####[facility] Wubtfypqzj9[address] [place], [place] [address]Dr. Garima Pulliam IG # 0.04 10e3/ul Critically high 0.00-0.03 [facility] Comment on above: Performed By: #### C BC ####[facility] Eyezhihhnr1333[address] [place], [place] [address]Dr. Garima Heraclio IG % 0.5 % Normal 0.0-0.5 [facility] Comment on above: Performed By: #### C BC ####[facility] Ckpzfkrltm7757[address] [place], [place] [address]DrAdalberto Pulliam LYMPH # 1.1 103/ul Critically low 1.2-3.8 [facility] Comment on above: Performed By: #### C BC ####[facility] Kxpeoqixpr9477 [place] [address]DrAdalberto Pulliam Lymphocytes/100 WBC (Bld) 12.7 % Critically low 20.5-60.0 [facility] [place] Comment on above: Performed By: #### C BC ####[facility] Mygrisywkv1647 [place] [address]DrAdalberto Pulliam MANUAL DIFF REQ NO Normal [facility] Comment on above: Performed By: #### C BC ####[facility] Lzenzagpze5571 [place] [address]DrAdalberto Pulliam MCH (RBC) [Entitic mass] 30.0 pg Normal 25.9-34.0 [facility] Comment on above: Performed By: #### C BC ####[facility] Xahgrmysfv2599[address] [place], [place] [address]Dr. Garima Pulliam MCHC (RBC) [Mass/Vol] 32.6 g/dL Normal 29.9-35.2 [facility] [place] Comment on above: Performed By: #### C BC ####[facility] Akwpkfczrx14[address] [place], [place] [address]DrAdalberto Pulliam MCV (RBC) [Entitic vol] 91.9 fL Normal 80.0-94.0 [facility] Comment on above: Performed By: #### C BC ####[facility] Nlhexuylze2865 [place] [address]DrAdalberto Pulliam MONO # 0.4 103/ul Normal 0.3-0.8 [facility] Comment on above: Performed By: #### C BC ####[facility] Aqipcxyjis[address] [place], [place] [address]DrAdalberto Pulliam Monocytes/100 WBC (Bld) 4.8 % Normal 1.7-12.0 [facility] Comment on above: Performed By: #### C BC ####[facility] Vdjwufkumv11[address] [place], [place] [address]DrAdalberto Pulliam NEUT # 7.1 103/ul Critically high 1.4-6.5 [facility] Comment on above: Performed By: #### C BC ####[facility] Bzdevgpovp8169 [place] [address]Dr. Garima Pulliam Neutrophils/100 WBC (Bld) 80.4 % Critically high 43.0-75.0 [facility] [place] Comment on above: Performed By: #### C BC ####[facility] Bkeiczdmju6744 [place] [address]Dr. Garima Pulliam Platelet mean volume (Bld) [Entitic vol] 9.1 fL Critically low 9.5-13.5 [facility] [place] Comment on above: Performed By: #### C BC ####[facility] Jhwkijajox5914 [place] [address]Dr. Garima Pulliam PLT 200 103/ul Normal 150-450 [facility] Comment on above: Performed By: #### C BC ####[facility] Cvxnrymfib5689 [place] [address]Dr. Garima Pulliam RBC 4.94 106/ul Normal 4.70-6.10 [facility] Comment on above: Performed By: #### C BC ####[facility] Gqllnufpxx1930 [place] [address]Dr. Garima Pulliam WBC 8.9 103/ul Normal 4.0-11.0 [facility] Comment on above: Performed By: #### C BC ####[facility] Orwnntcpgb1788 [place] [address]Dr. Garima Pulliam [facility]on SARS-CoV-2 (COVID-19) RNA MARIE+probe Ql (Unsp spec) Not detected Normal NOT DETECTED [facility] Comment on above: Result Comment: When [...] for this test is supported by the [place] of Health and Human Service's declaration that [...] be used). Performed By: #### C VDTBH ####[facility] Oemyyxbpgg[address] [place] [address]Dr. Garima Pulliam LACTATE/LACTIC ACIDon 2021 Lactate [Moles/Vol] 1.7 mmol/L Normal 0.4-1.9 [facility] Comment on above: Performed By: #### L ACT ####[facility] Mhqopxnjip7[address] [place], [place] [address]Dr. Garima Pulliam PROF 14(COMP METB)on 022 Albumin [Mass/Vol] 3.8 g/dL Normal 3.4-5.0 [facility] Comment on above: Performed By: #### C MP, BNP, CMADM ####[facility] [facility] [address] [place] [address]Dr. Garima Pulliam Albumin/Globulin [Mass ratio] 1.5 {ratio} Normal [facility] [place] Comment on above: Performed By: #### C MP, BNP, CMADM ####[facility] Uwvhlzl[address] [place], [place] [address]Dr. Garima Pulliam ALP [Catalytic activity/Vol] 62 U/L Normal 46-116 [facility] Comment on above: Performed By: #### C MP, BNP, CMADM ####[facility] Soauwjhxxv[address] [place] [address]Dr. Garima Pulliam ALT [Catalytic activity/Vol] 37 U/L Normal 16-63 [facility] [place] Comment on above: Performed By: #### C MP, BNP, CMADM ####[facility] Sreuaukvym[address] [place] [address]Dr. Garima Pulliam Anion gap [Moles/Vol] 8.0 mmol/L Normal [facility] [place] Comment on above: Performed By: #### C MP, BNP, CMADM ####[facility] Tubexmjpgt[address] [place] [address]Dr. Garima Pulliam AST [Catalytic activity/Vol] 20 U/L Normal 15-37 [facility] Comment on above: Performed By: #### C MP, BNP, CMADM ####[facility] Yql[address]otjwh[address] [place] [address]Dr. Garima Pulliam Bilirubin [Mass/Vol] 0.6 mg/dL Normal 0.2-1.0 [facility] Comment on above: Performed By: #### C MP, BNP, CMADM ####[facility] Awvqfqxmcg[address] [place] [address]Dr. Garima Pulliam Calcium [Mass/Vol] 9.1 mg/dL Normal 8.5-10.1 [facility] Comment on above: Performed By: #### C MP, BNP, CMADM ####[facility] Dhxhtbsezt[address] [place] [address]Dr. Garima Pulliam Chloride [Moles/Vol] 103 mmol/L Normal 98-107 [facility] Comment on above: Performed By: #### C MP, BNP, CMADM ####[facility] Fojlyliwue[address] [place] [address]Dr. Garima Pulliam CO2 [Moles/Vol] 31.8 mmol/L Normal 21.0-32.0 [facility] Comment on above: Performed By: #### C MP, BNP, CMADM ####[facility] Chgkuambkl[address] [place] [address]Dr. Garima Pulliam Creatinine [Mass/Vol] 0.63 mg/dL Critically low 0.70-1.30 [facility] Comment on above: Performed By: #### C MP, BNP, CMADM ####[facility] Qfwghysopt[address] [place] [address]Dr. Garima Pulliam EGFR-AF TUVALUAN >60 Normal >=60 [facility] Comment on above: Performed By: #### C MP, BNP, CMADM ####[facility] [address] [place] [id number]. Garima Pulliam EGFR-NON AF TUVALUAN >60 Normal >=60 [facility] Comment on above: Performed By: #### C MP, BNP, CMADM ####[facility] Ecteaponkz[address] [place] [address]Dr. Garima Pulliam Globulin (S) [Mass/Vol] 2.6 g/dL Normal [facility] Comment on above: Performed By: #### C MP, BNP, CMADM ####[facility] Cplnbazjwy[address] [place] [address]Dr. Garima Pulliam Glucose [Mass/Vol] 103 mg/dL Normal 74-106 [facility] Comment on above: Performed By: #### C MP, BNP, CMADM ####[facility] Wkltvcjxal83[address] [place] [address]Dr. Garima Pulliam Potassium [Moles/Vol] 3.8 mmol/L Normal 3.5-5.1 [facility] Comment on above: Performed By: #### C MP, BNP, CMADM ####[facility] Mteqforbok[address] [place] [address]Dr. Garima Pulliam Protein [Mass/Vol] 6.4 g/dL Normal 6.4-8.2 [facility] Comment on above: Performed By: #### C MP, BNP, CMADM ####[facility] Crjxccxlme75[address] [place] [address]Dr. Garima Pulliam Sodium [Moles/Vol] 139 mmol/L Normal 136-145 [facility] Comment on above: Performed By: #### C MP, BNP, CMADM ####[facility] Wwmlwstjxa10[address] [place] [address]Dr. Garima Pulliam Urea nitrogen [Mass/Vol] 7.0 mg/dL Normal 7.0-18.0 [facility] Comment on above: Performed By: #### C MP, BNP, CMADM ####[facility] G[address]rmgqql[address] [place] [address]Dr. Garima Pulliam Urea nitrogen/Creatinine [Mass ratio] 11.1 mg/mg Normal [facility] Comment on above: Performed By: #### C MP, BNP, CMADM ####[facility] Cmkntsxenb[address] [place] [address]Dr. Chapisrenu Pulliam PROTIMEon 09-29-2022 INR Coag (PPP) [Relative time] 1.14 {INR} Normal [facility] Comment on above: Performed By: #### P T, PTT ####[facility] Shrpcftmpt[address] [place], [place] [address]Dr. Garmia Pulliam INR GUIDELINES SEE BELOW Normal [facility] Comment on above: Result Comment: WESLEY RED INR: 2.0 - 3.0 CONDITIONS NOT LISTED BELOW 2.5 - 3.5 FOR PROSTHETIC HEART VALVE REPLACEMENT 2.5 - 3.5 RECURRENT THROMBOSIS Performed By: #### P T, PTT ####[facility] Alonqyuaoj8[address] [place], [place] [address]Dr. Garima Pulliam PT Coag (PPP) [Time] 12.2 s Critically high 9.0-11.6 [facility] Comment on above: Performed By: #### P T, PTT ####[facility] Shcgbqdpqq25[address] [place], [place] [address]Dr. Garima Pulliam PTTon 09-29-2022 aPTT Coag (Bld) [Time] 29.3 s Normal 22.3-36.2 [facility] Comment on above: Performed By: #### P T, PTT ####[facility] Cwlbwdxmgk32[address] [place], [place] [address]Dr. Garima Pulliam XR CHEST 1 Von 09-29-2022 XR CHEST 1 V Normal [facility] CBC AUTO DIFFon 09-26-2022 BASO # 0.0 103/ul Normal 0.0-0.1 [facility] Comment on above: Performed By: #### C BC ####[facility] Tnnafthffi29[address] [place], [place] [address]Dr. Garima Pulliam Basophils/100 WBC (Bld) 0.2 % Normal 0.2-2.0 [facility] Comment on above: Performed By: #### C BC ####[facility] Oosmicdxiu[address] [place] [address]Dr. Garima Pulliam EO # 0.1 103/ul Normal 0.0-0.7 [facility] Comment on above: Performed By: #### C BC ####[facility] Mhhpjcldgs49[address] [place], [place] [address]Dr. Garima Pulliam Eosinophils/100 WBC (Bld) 1.0 % Normal 0.9-7.0 [facility] Comment on above: Performed By: #### C BC ####[facility] Mbzzscytry609934 [address] [place], [place] [address]Dr. Garima Pulliam Erythrocyte distribution width (RBC) [Ratio] 13.4 % Normal 11.0-15.0 [facility] Comment on above: Performed By: #### C BC ####[facility] Vytjdnhxbu2214[address] [place], [place] [address]Dr. Garima Pulliam Hematocrit (Bld) [Volume fraction] 46.3 % Normal 42.0-54.0 [facility] Comment on above: Performed By: #### C BC ####[facility] Xxoccgqvwy797[address] [place], [place] [address]Dr. Garima Pulliam Hemoglobin (Bld) [Mass/Vol] 15.3 g/dL Normal 14.0-18.0 [facility] Comment on above: Performed By: #### C BC ####[facility] Wvkvtueqiq297234 [address] [place], [place] [address]Dr. Garima Pulliam IG # 0.05 10e3/ul Critically high 0.00-0.[address] [facility] Comment on above: Performed By: #### C BC ####[facility] Oddfozqbhv712734 [address] [place], [place] [address]Dr. Garima Pulliam IG % 0.4 % Normal 0.0-0.5 [facility] Comment on above: Performed By: #### C BC ####[facility] Ntcmozcxyo2000[address] [place], [place] [address]Dr. Garima Pulliam LYMPH # 1.7 103/ul Normal 1.2-3.8 [facility] Comment on above: Performed By: #### C BC ####[facility] M[address]kleahhs[address] [place] [address]Dr. Chapisrenu Pulliam Lymphocytes/100 WBC (Bld) 12.7 % Critically low 20.5-60.0 [facility] Comment on above: Performed By: #### C BC ####[facility] Miwpndvpwg20[address] [place] [address]Dr. Chapisrenu Pulliam MANUAL DIFF REQ NO Normal [facility] Comment on above: Performed By: #### C BC ####[facility] Pktmcckalv48[address] [place] [address]Dr. Garima Pulliam MCH (RBC) [Entitic mass] 30.1 pg Normal 25.9-34.0 [facility] Comment on above: Performed By: #### C BC ####[facility] Snadgthozd7[address] [place], [place] [address]Dr. Garima Pulliam MCHC (RBC) [Mass/Vol] 33.0 g/dL Normal 29.9-35.2 [facility] Comment on above: Performed By: #### C BC ####[facility] Dufilxyjyf6[address] [place], [place] [address]Dr. Garima Pulliam MCV (RBC) [Entitic vol] 91.1 fL Normal 80.0-94.0 [facility] Comment on above: Performed By: #### C BC ####[facility] Oqeossfycc[address] [place], [place] [address]Dr. Garima Pulliam MONO # 0.9 103/ul Critically high 0.3-0.8 [facility] Comment on above: Performed By: #### C BC ####[facility] Rvnhfulluf07[address] [place], [place] [address]Dr. Garima Pulliam Monocytes/100 WBC (Bld) 7.0 % Normal 1.7-12.0 [facility] Comment on above: Performed By: #### C BC ####[facility] Tffggpvzhi[address] [place], [place] [address]Dr. Garima Pulliam NEUT # 10.4 103/ul Critically high 1.4-6.5 [facility] Comment on above: Performed By: #### C BC ####[facility] J[address]wju[address] [place] [address]Dr. Garima Pulliam Neutrophils/100 WBC (Bld) 78.7 % Critically high 43.0-75.0 [facility] [place] Comment on above: Performed By: #### C BC ####[facility] Znfxmavseq9[address] [place] [address]Dr. Garima Pulliam Platelet mean volume (Bld) [Entitic vol] 8.9 fL Critically low 9.5-13.5 [facility] Comment on above: Performed By: #### C BC ####[facility] Qqlzsgbhhq1834 [place] [address]Dr. Garima Pulliam PLT 195 103/ul Normal 150-450 [facility] [place] Comment on above: Performed By: #### C BC ####[facility] Mjobrhkhvl9022 [place] [address]Dr. Garima Pulliam RBC 5.08 106/ul Normal 4.70-6.10 [facility] Comment on above: Performed By: #### C BC ####[facility] Nqnllpnmjr4814 [place] [address]Dr. Garima Pulliam WBC 13.2 103/ul Critically high 4.0-11.0 [facility] Comment on above: Performed By: #### C BC ####[facility] Suoxzwxebq79[address] [place] [address]Dr. Garima Pulliam PROF 14(COMP METB)on 022 Albumin [Mass/Vol] 3.5 g/dL Normal 3.4-5.0 [facility] Comment on above: Performed By: #### C DAVID HSTROPN ####[facility] Bxcevdvums[address] [place] [id number]. Garima Pulliam Albumin/Globulin [Mass ratio] 1.2 {ratio} Normal [facility] Comment on above: Performed By: #### C DAVID, HSTROPN ####[facility] Vnfqcmmmmw3464 [place] [id number]. Garima Pulliam ALP [Catalytic activity/Vol] 71 U/L Normal 46-116 [facility] Comment on above: Performed By: #### C DAVID, HSTROPN ####[facility] Myutgyrvwn[address] [place] [address]Dr. Garima Pulliam ALT [Catalytic activity/Vol] 37 U/L Normal 16-63 [facility] [place] Comment on above: Performed By: #### C MP, HSTROPN ####[facility] Gxorzydrxa83[address] [place] [address]Dr. Garima Pulliam Anion gap [Moles/Vol] 4.8 mmol/L Normal [facility] [place] Comment on above: Performed By: #### C MP, HSTROPN ####[facility] Wcnuudnemp97[address] [place] [address]Dr. Garima Pulliam AST [Catalytic activity/Vol] 21 U/L Normal 15-37 [facility] [place] Comment on above: Performed By: #### C DAVID, HSTROPN ####[facility] Fmxaizsead69[address] [place], [place] [address]Dr. Garima Pulliam Bilirubin [Mass/Vol] 0.3 mg/dL Normal 0.2-1.0 [facility] [place] Comment on above: Performed By: #### C DAVID, HSTROPN ####[facility] Sopjhtivey[address] [place], [place] [address]Dr. Garima Pulliam Calcium [Mass/Vol] 8.9 mg/dL Normal 8.5-10.1 [facility] Comment on above: Performed By: #### C DAVID, HSTROPN ####[facility] Fstezbnpcv3[address] [place], [place] [address]Dr. Garima Pulliam Chloride [Moles/Vol] 106 mmol/L Normal 98-107 [facility] [place] Comment on above: Performed By: #### C MP, HSTROPN ####[facility] Hxcsqdglwp[address] [place], [place] [address]Dr. Garima Pulliam CO2 [Moles/Vol] 29.8 mmol/L Normal 21.0-32.0 [facility] Comment on above: Performed By: #### C MP, HSTROPN ####[facility] Cpuimscdlx9[address] [place], [place] [address]Dr. Yilan Pulliam Creatinine [Mass/Vol] 0.68 mg/dL Critically low 0.70-1.30 [facility] [place] Comment on above: Performed By: #### C DAVID, HSTROPN ####[facility] As[address]abtqh[address] [place] [address]Dr. Garima Pulliam EGFR-AF TUVALUAN >60 Normal >=60 [facility] Comment on above: Performed By: #### C DAVID, HSTROPN ####[facility] Qvklgqhgkc4[address] [place] [address]Dr. Garima Pulliam EGFR-NON AF TUVALUAN >60 Normal >=60 [facility] [place] Comment on above: Performed By: #### C DAVID, HSTROPN ####[facility] Klovippkdj6[address] [place] [address]Dr. Garima Pulliam Globulin (S) [Mass/Vol] 2.8 g/dL Normal [facility] [place] Comment on above: Performed By: #### C DAVID, HSTROPN ####[facility] Qpxubdhyfn2808 [place] [address]Dr. Garima Pulliam Glucose [Mass/Vol] 133 mg/dL Critically high 74-106 [facility] Comment on above: Performed By: #### C DAVID, HSTROPN ####[facility] Ubtrdlvrli0240 [place] [address]Dr. Garima Pulliam Potassium [Moles/Vol] 3.6 mmol/L Normal 3.5-5.1 [facility] [place] Comment on above: Performed By: #### C DAVID, HSTROPN ####[facility] Geqjhjkhjq76[address] [place] [address]Dr. Garima Pulliam Protein [Mass/Vol] 6.3 g/dL Critically low 6.4-8.2 [facility] Comment on above: Performed By: #### C DAVID, HSTROPN ####[facility] Hgamlelvlb3487 [place] [address]Dr. Garima Pulliam Sodium [Moles/Vol] 137 mmol/L Normal 136-145 [facility] Comment on above: Performed By: #### C DAVID, HSTROPN ####[facility] Yjwiccmtwy6555 [place] [id number]. Garima Pulliam Urea nitrogen [Mass/Vol] 15.0 mg/dL Normal 7.0-18.0 [facility] Comment on above: Performed By: #### C MP, HSTROPN ####[facility] Qsaetlxcqp3353 [place] [id number]. Garima Pulliam Urea nitrogen/Creatinine [Mass ratio] 22.1 mg/mg Normal [facility] Comment on above: Performed By: #### C MP, HSTROPN ####[facility] Yxrycvifpj1155 [place] [phone]. Garima Pulliam TROPONIN, HIGH SENSITIVITYon 09-26-2022 HSTROP 12.8 pg/mL Normal 4.0-76.1 [facility] Comment on above: Result Comment: CUT- OFF POINTS HAVE BEEN ESTABLISHED BASED ON THE FOURTH UNIVERSAL DEFINITIONS OF MYOCARDIALINFARCTION. THE UPPER REFERENCE LIMIT (URL) OF TROPONIN, DEFINED THE 99TH PERCENTILE OFcTnI DISTRIBUTION IN A REFERENCE POPULATION, HAS BEEN CONFIRMED THE DECISION THRESHOLDFOR MD DIAGNOSIS. Performed By: #### C MP, HSTROPN ####[facility] Tyfhrvxukw67[address] [place] [address]Dr. Garima Pulliam XR CHEST 1 Von 09-26-2022 XR CHEST 1 V Normal [facility] XR CHEST 1 Von 09-16-2022 XR CHEST 1 V Normal [facility] CBC AUTO DIFFon 09-15-2022 BASO # 0.0 103/ul Normal 0.0-0.1 [facility] Comment on above: Performed By: #### C BC ####[facility] Kyqgbkpxuj4398 [place] [phone]. Garima Heraclio Basophils/100 WBC (Bld) 0.1 % Critically low 0.2-2.0 [facility] Comment on above: Performed By: #### C BC ####[facility] Fzbrtwzjgv0557 [place] [phone]. Garima Heraclio EO # 0.0 103/ul Normal 0.0-0.7 [facility] Comment on above: Performed By: #### C BC ####[facility] Btkhmrinqc4243 [place] [id number]. Garima Pulliam Eosinophils/100 WBC (Bld) 0.1 % Critically low 0.9-7.0 [facility] [place] Comment on above: Performed By: #### C BC ####[facility] Pfknujnftm01[address] [place] [address]Dr. Garima Pulliam Erythrocyte distribution width (RBC) [Ratio] 14.1 % Normal 11.0-15.0 [facility] [place] Comment on above: Performed By: #### C BC ####[facility] Vrfogttbhy85[address] [place], [place] [address]Dr. Garima Pulliam Hematocrit (Bld) [Volume fraction] 46.1 % Normal 42.0-54.0 [facility] [place] Comment on above: Performed By: #### C BC ####[facility] Txddccjmlr9[address] [place], [place] [address]Dr. Garima Pulliam Hemoglobin (Bld) [Mass/Vol] 15.0 g/dL Normal 14.0-18.0 [facility] [place] Comment on above: Performed By: #### C BC ####[facility] Rqwahhaflk127[address] [place], [place] [address]Dr. Garima Pulliam IG # 0.03 10e3/ul Normal 0.00-0.03 [facility] [place] Comment on above: Performed By: #### C BC ####[facility] Ouypjsgftb9954[address] [place], [place] [address]Dr. Garima Pulliam IG % 0.3 % Normal 0.0-0.5 [facility] Comment on above: Performed By: #### C BC ####[facility] Gunzsazzjb3327[address] [place], [place] [address]Dr. Garima Pulliam LYMPH # 0.6 103/ul Critically low 1.2-3.8 [facility] Comment on above: Performed By: #### C BC ####[facility] Yhxsyqqafa3025[address] [place], [place] [address]Dr. Garima Pulliam Lymphocytes/100 WBC (Bld) 5.8 % Critically low 20.5-60.0 [facility] [place] Comment on above: Performed By: #### C BC ####[facility] Kkrbjoguyr5[address] [place] [id number]. Garima Pulliam MANUAL DIFF REQ NO Normal [facility] Comment on above: Performed By: #### C BC ####[facility] Oazurxbtnv9035 [place] [phone]. Garima Pulliam MCH (RBC) [Entitic mass] 30.2 pg Normal 25.9-34.0 [facility] [place] Comment on above: Performed By: #### C BC ####[facility] Poiimjxwns1733 [place] [phone]. Garima Pulliam MCHC (RBC) [Mass/Vol] 32.5 g/dL Normal 29.9-35.2 [facility] [place] Comment on above: Performed By: #### C BC ####[facility] Zuwnczykhn95[address] [place], [place] [address]Dr. Garima Pulliam MCV (RBC) [Entitic vol] 92.8 fL Normal 80.0-94.0 [facility] [place] Comment on above: Performed By: #### C BC ####[facility] Upwvaijken[address] [place], [place] [address]Dr. Garima Pulliam MONO # 0.3 103/ul Normal 0.3-0.8 [facility] [place] Comment on above: Performed By: #### C BC ####[facility] Nnldicmdbv[address] [place], [place] [address]Dr. Garima Pulliam Monocytes/100 WBC (Bld) 3.2 % Normal 1.7-12.0 [facility] Comment on above: Performed By: #### C BC ####[facility] Rhxgyprjyy7623[address] [place], [place] [address]Dr. Garima Pulliam NEUT # 9.8 103/ul Critically high 1.4-6.5 [facility] Comment on above: Performed By: #### C BC ####[facility] Fwmkcpvgrc[address] [place], [place] [address]Dr. Garima Pulliam Neutrophils/100 WBC (Bld) 90.5 % Critically high 43.0-75.0 [facility] [place] Comment on above: Performed By: #### C BC ####[facility] Zqlannkqqv9695 [place] [address]Dr. Garima Pulliam Platelet mean volume (Bld) [Entitic vol] 9.4 fL Critically low 9.5-13.5 [facility] [place] Comment on above: Performed By: #### C BC ####[facility] Rwcirjxanx2322 [place] [address]Dr. Garima Pulliam PLT 208 103/ul Normal 150-450 [facility] [place] Comment on above: Performed By: #### C BC ####[facility] Ecseowkkjy562[address] [place], [place] [address]Dr. Garima Pulliam RBC 4.97 106/ul Normal 4.70-6.10 [facility] [place] Comment on above: Performed By: #### C BC ####[facility] Qocmfqznef9869[address] [place], [place] [address]Dr. Garima Pulliam WBC 10.8 103/ul Normal 4.0-11.0 [facility] [place] Comment on above: Performed By: #### C BC ####[facility] Ljykpyitmk16[address] [place], [place] [address]Dr. Garima Pulliam PROF 14(COMP METB)on 022 Albumin [Mass/Vol] 4.0 g/dL Normal 3.4-5.0 [facility] Comment on above: Performed By: #### C MP ####[facility] Bwzhkugzic13[address] [place], [place] [address]Dr. Garima Pulliam Albumin/Globulin [Mass ratio] 1.5 {ratio} Normal [facility] [place] Comment on above: Performed By: #### C MP ####[facility] Lvrzmljqph99[address] [place], [place] [address]Dr. Garima Pulliam ALP [Catalytic activity/Vol] 73 U/L Normal 46-116 [facility] [place] Comment on above: Performed By: #### C MP ####[facility] Ahxvkudlyp48[address] [place], [place] [address]Dr. Garima Pulliam ALT [Catalytic activity/Vol] 42 U/L Normal 16-63 [facility] [place] Comment on above: Performed By: #### C MP ####[facility] Hecqwvlyhv67[address] [place] [address]Dr. Garima Pulliam Anion gap [Moles/Vol] 9.1 mmol/L Normal [facility] [place] Comment on above: Performed By: #### C MP ####[facility] Geoqpnsgfw7187 [place] [address]Dr. Garima Pulliam AST [Catalytic activity/Vol] 28 U/L Normal 15-37 [facility] Comment on above: Performed By: #### C MP ####[facility] Arguqrotyv2967 [place] [address]Dr. Garima Pulliam Bilirubin [Mass/Vol] 0.6 mg/dL Normal 0.2-1.0 [facility] [place] Comment on above: Performed By: #### C MP ####[facility] Dezuycfqhu8[address] [place], [place] [address]Dr. Garima Pulliam Calcium [Mass/Vol] 8.6 mg/dL Normal 8.5-10.1 [facility] Comment on above: Performed By: #### C MP ####[facility] Nzwnyyqcyx78[address] [place], [place] [address]Dr. Garima Pulliam Chloride [Moles/Vol] 105 mmol/L Normal 98-107 [facility] [place] Comment on above: Performed By: #### C MP ####[facility] Hgmehvcxfh59[address] [place], [place] [address]Dr. Garima Pulliam CO2 [Moles/Vol] 28.5 mmol/L Normal 21.0-32.0 [facility] Comment on above: Performed By: #### C MP ####[facility] Uupgpyptca[address] [place], [place] [address]Dr. Garima Pulliam Creatinine [Mass/Vol] 0.78 mg/dL Normal 0.70-1.30 [facility] Comment on above: Performed By: #### C MP ####[facility] Odkvnqaxhr18[address] [place] [address]Dr. Garima Pulliam EGFR-AF TUVALUAN >60 Normal >=60 [facility] Comment on above: Performed By: #### C MP ####[facility] Fqgkicwarc6786 [place] [address]Dr. Garima Pulliam EGFR-NON AF TUVALUAN >60 Normal >=60 [facility] Comment on above: Performed By: #### C MP ####[facility] Goydfnutdh9958 [place] [address]Dr. Garima Pulliam Globulin (S) [Mass/Vol] 2.7 g/dL Normal [facility] Comment on above: Performed By: #### C MP ####[facility] Leosrtdhkg9652 [place] [address]Dr. Garima Pulliam Glucose [Mass/Vol] 220 mg/dL Critically high 74-106 T [facility] Comment on above: Performed By: #### C MP ####[facility] Roxrakowxx[address] [place], [place] [address]Dr. Garima Pulliam Potassium [Moles/Vol] 3.6 mmol/L Normal 3.5-5.1 [facility] Comment on above: Performed By: #### C MP ####[facility] Esjhsswihv52[address] [place], [place] [address]Dr. Garima Pulliam Protein [Mass/Vol] 6.7 g/dL Normal 6.4-8.2 [facility] Comment on above: Performed By: #### C MP ####[facility] Bkkmmcvsoe08[address] [place], [place] [address]Dr. Garima Pulliam Sodium [Moles/Vol] 139 mmol/L Normal 136-145 [facility] Comment on above: Performed By: #### C MP ####[facility] Cfvmpczitv264[address] [place], [place] [address]Dr. Garima Pulliam Urea nitrogen [Mass/Vol] 11.0 mg/dL Normal 7.0-18.0 [facility] Comment on above: Performed By: #### C MP ####[facility] Wxloorbvps5756[address] [place], [place] [address]Dr. Garima Pulliam Urea nitrogen/Creatinine [Mass ratio] 14.1 mg/mg Normal [facility] Comment on above: Performed By: #### C MP ####[facility] Mkyuulgjxq[address] [place], [place] [address]Dr. Garima Pulliam CARDIAC NASH 3-6on 2 CK [Catalytic activity/Vol] 240 U/L Normal 39-308 [facility] [place] Comment on above: Performed By: #### C MREP ####[facility] Flsbopwirx1060 [place], [place] [address]Zy. Garima Pulliam CK.MB [Mass/Vol] 10.38 ng/mL Critically high <=3.60 [facility] Comment on above: Performed By: #### C MREP ####[facility] Xgxsnnhtoo0901 [place] [id number]. Garima Pulliam HSTROP 18.5 pg/mL Normal 4.0-76.1 [facility] Comment on above: Result Comment: CUT- OFF POINTS HAVE BEEN ESTABLISHED BASED ON THE FOURTH UNIVERSAL DEFINITIONS OF MYOCARDIALINFARCTION. THE UPPER REFERENCE LIMIT (URL) OF TROPONIN, DEFINED THE 99TH PERCENTILE OFcTnI DISTRIBUTION IN A REFERENCE POPULATION, HAS BEEN CONFIRMED THE DECISION THRESHOLDFOR MD DIAGNOSIS. Performed By: #### C MREP ####[facility] Czrouyzlvl2204 [place] [id number]. Garima Pulliam CK [Catalytic activity/Vol] 257 U/L Normal 39-308 [facility] Comment on above: Performed By: #### C MREP ####[facility] Eycbvskfsj2752 [place] [address]Dr. Garima Pulliam CK.MB [Mass/Vol] 9.89 ng/mL Critically high <=3.60 [facility] [place] Comment on above: Performed By: #### C MREP ####[facility] Eusvnchcse1871 [place] [address]Dr. Garima Pulliam HSTROP 16.9 pg/mL Normal 4.0-76.1 [facility] Comment on above: Result Comment: CUT- OFF POINTS HAVE BEEN ESTABLISHED BASED ON THE FOURTH UNIVERSAL DEFINITIONS OF MYOCARDIALINFARCTION. THE UPPER REFERENCE LIMIT (URL) OF TROPONIN, DEFINED THE 99TH PERCENTILE OFcTnI DISTRIBUTION IN A REFERENCE POPULATION, HAS BEEN CONFIRMED THE DECISION THRESHOLDFOR MD DIAGNOSIS. Performed By: #### C MREP ####[facility] Ujuswaifec9722 [place] [address]Dr. Garima Pulliam CBC AUTO DIFFon 09-13-2022 BASO # 0.0 103/ul Normal 0.0-0.1 [facility] Comment on above: Performed By: #### C BC ####[facility] Nxnmgguhqv4[address] [place], [place] [address]Dr. Chapisrenu Pulliam Basophils/100 WBC (Bld) 0.1 % Critically low 0.2-2.0 [facility] Comment on above: Performed By: #### C BC ####[facility] Gzqzeovaot6904[address] [place], [place] [address]Dr. Chapisrenu Pulliam EO # 0.0 103/ul Normal 0.0-0.7 [facility] Comment on above: Performed By: #### C BC ####[facility] Jggrfpsumy357[address] [place], [place] [address]Dr. Chapisrenu Pulliam Eosinophils/100 WBC (Bld) 0.0 % Critically low 0.9-7.0 [facility] Comment on above: Performed By: #### C BC ####[facility] Zxgkkajket939[address] [place], [place] [address]Dr. Chapisrenu Pulliam Erythrocyte distribution width (RBC) [Ratio] 13.6 % Normal 11.0-15.0 [facility] [place] Comment on above: Performed By: #### C BC ####[facility] Joxyyrgusl097[address] [place], [place] [address]Dr. Garima Pulliam Hematocrit (Bld) [Volume fraction] 48.2 % Normal 42.0-54.0 [facility] Comment on above: Performed By: #### C BC ####[facility] Vbympkwgql088[address] [place], [place] [address]Dr. Chapisrenu Pulliam Hemoglobin (Bld) [Mass/Vol] 16.0 g/dL Normal 14.0-18.0 [facility] Comment on above: Performed By: #### C BC ####[facility] Zkkuxamgqm416734 [address] [place], [place] [address]Dr. Garima Pulliam IG # 0.02 10e3/ul Normal 0.00-0.03 [facility] Comment on above: Performed By: #### C BC ####[facility] Jguzpwrgym5687 [place] [address]Dr. Garima Pulliam IG % 0.3 % Normal 0.0-0.5 [facility] [place] Comment on above: Performed By: #### C BC ####[facility] Gbzxtvqkwd5352 [place] [address]Dr. Garima Heraclio LYMPH # 0.5 103/ul Critically low 1.2-3.8 [facility] Comment on above: Performed By: #### C BC ####[facility] Rnsxezaawo6685 [place] [address]Dr. Chapisrenu Pulliam Lymphocytes/100 WBC (Bld) 7.7 % Critically low 20.5-60.0 [facility] [place] Comment on above: Performed By: #### C BC ####[facility] Lymlepbscq9883 [place] [address]Dr. Garima Pulliam MANUAL DIFF REQ NO Normal [facility] Comment on above: Performed By: #### C BC ####[facility] Xqdexlzwjk5710 [place] [address]Dr. Garima Pulliam MCH (RBC) [Entitic mass] 30.6 pg Normal 25.9-34.0 [facility] Comment on above: Performed By: #### C BC ####[facility] Pfznrfoiyf6628 [place] [address]Dr. Garima Heraclio MCHC (RBC) [Mass/Vol] 33.2 g/dL Normal 29.9-35.2 [facility] Comment on above: Performed By: #### C BC ####[facility] Qcwmmrwger4195 [place] [address]Dr. Garima Pulliam MCV (RBC) [Entitic vol] 92.2 fL Normal 80.0-94.0 [facility] Comment on above: Performed By: #### C BC ####[facility] Gstjddyztm[address] [place], [place] [address]Dr. Garima Pulliam MONO # 0.0 103/ul Critically low 0.3-0.8 [facility] Comment on above: Performed By: #### C BC ####[facility] Naylixzbmb6232 [place] [address]Dr. Garima Pulliam Monocytes/100 WBC (Bld) 0.4 % Critically low 1.7-12.0 [facility] [place] Comment on above: Performed By: #### C BC ####[facility] Elmfsqclet9942 [place] [address]Dr. Garima Pulliam NEUT # 6.2 103/ul Normal 1.4-6.5 [facility] Comment on above: Performed By: #### C BC ####[facility] Xxlfrfoxqp1302 [place] [address]Dr. Garima Pulliam Neutrophils/100 WBC (Bld) 91.5 % Critically high 43.0-75.0 [facility] [place] Comment on above: Performed By: #### C BC ####[facility] Ydgalxqzlm7365 [place] [address]Dr. Garima Pulliam Platelet mean volume (Bld) [Entitic vol] 8.7 fL Critically low 9.5-13.5 [facility] Comment on above: Performed By: #### C BC ####[facility] Hnjyjsztqd499[address] [place], [place] [address]Dr. Garima Pulliam PLT 179 103/ul Normal 150-450 [facility] [place] Comment on above: Performed By: #### C BC ####[facility] Buqrraiwnb0106 [place] [address]Dr. Garima Pulliam RBC 5.23 106/ul Normal 4.70-6.10 [facility] Comment on above: Performed By: #### C BC ####[facility] Vpdhlcvxoo1222 [place] [address]Dr. Garima Pulliam WBC 6.7 103/ul Normal 4.0-11.0 [facility] Comment on above: Performed By: #### C BC ####[facility] Vrxqpignvl836[address] [place], [place] [address]DrAdalberto Garima Heraclio PROF CHEM 8 (BAS METB)on Anion gap [Moles/Vol] 12.1 mmol/L Normal [facility] Comment on above: Performed By: #### B MP ####[facility] Wymxhuqxon6580 [place] [address]Dr. Garima Pulliam Calcium [Mass/Vol] 8.7 mg/dL Normal 8.5-10.1 [facility] Comment on above: Performed By: #### B MP ####[facility] Ptpkafqlvk8425 [place] [address]Dr. Garima Pulliam Chloride [Moles/Vol] 105 mmol/L Normal 98-107 [facility] Comment on above: Performed By: #### B MP ####[facility] Fusxwyassg7621 [place] [address]Dr. Garima Pulliam CO2 [Moles/Vol] 25.5 mmol/L Normal 21.0-32.0 [facility] Comment on above: Performed By: #### B MP ####[facility] Bxjpsqxltx2425[address] [place], [place] [address]Dr. Garima Pulliam Creatinine [Mass/Vol] 0.63 mg/dL Critically low 0.70-1.30 [facility] Comment on above: Performed By: #### B MP ####[facility] Nsboxlaiov7319 [place] [address]Dr. aGrima Pulliam EGFR-AF TUVALUAN >60 Normal >=60 [facility] Comment on above: Performed By: #### B MP ####[facility] Cyujlmimad5957 [place] [address]Dr. Garima Pulliam EGFR-NON AF TUVALUAN >60 Normal >=60 [facility] Comment on above: Performed By: #### B MP ####[facility] Sxcztwhxar0503 [place] [address]Dr. Garima Pulliam Glucose [Mass/Vol] 162 mg/dL Critically high 74-106 [facility] Comment on above: Performed By: #### B MP ####[facility] Wwlksvlqml5689 [place] [address]Dr. Garima Pulliam Potassium [Moles/Vol] 3.6 mmol/L Normal 3.5-5.1 [facility] Comment on above: Performed By: #### B MP ####[facility] Ebhzlrjsfu7745 [place] [address]Dr. Garima Pulliam Sodium [Moles/Vol] 139 mmol/L Normal 136-145 [facility] Comment on above: Performed By: #### B MP ####[facility] Mworqexcno4791 [place] [address]Dr. Garima Heraclio Urea nitrogen [Mass/Vol] 9.0 mg/dL Normal 7.0-18.0 [facility] [place] Comment on above: Performed By: #### B MP ####[facility] Udweuburxf1012 [place] [address]Dr. Garima Pulliam Urea nitrogen/Creatinine [Mass ratio] 14.3 mg/mg Normal [facility] [place] Comment on above: Performed By: #### B DAVID ####[facility] Oigcqrvpda9182 [place] [address]Dr. Garima Pulliam CARDIAC NASH ADMITon 022 CK [Catalytic activity/Vol] 304 U/L Normal 39-308 [facility] Comment on above: Performed By: #### B DAVID, NANCY ####[facility] Arjkuiatqe8507 [place] [address]Dr. Garima Pulliam CK.MB [Mass/Vol] 11.81 ng/mL Critically high <=3.60 [facility] Comment on above: Performed By: #### B DAVID, NANCY ####[facility] Oibvixlsnl0545 [place] [address]Dr. Chapisrenu Pulliam HSTROP 13.3 pg/mL Normal 4.0-76.1 [facility] [place] Comment on above: Result Comment: CUT- OFF POINTS HAVE BEEN ESTABLISHED BASED ON THE FOURTH UNIVERSAL DEFINITIONS OF MYOCARDIALINFARCTION. THE UPPER REFERENCE LIMIT (URL) OF TROPONIN, DEFINED THE 99TH PERCENTILE OFcTnI DISTRIBUTION IN A REFERENCE POPULATION, HAS BEEN CONFIRMED THE DECISION THRESHOLDFOR MD DIAGNOSIS. Performed By: #### B DAVID, CMADM ####[facility] Giwsfmbgif6430 [place] [address]Dr. Garima Pulliam DORIS 133 ng/mL Critically high 16-[address] [facility] Comment on above: Performed By: #### B ERVIN HERNANDEZDM ####[facility] Scaaolmsrx0221 [place] [address]Dr. Garima Heraclio CBC AUTO DIFFon 09-12-2022 BASO # 0.0 103/ul Normal 0.0-0.1 [facility] Comment on above: Performed By: #### C BC ####[facility] Nhzfrjwvuv8892 [place] [address]Dr. Chapisrenu Pulliam Basophils/100 WBC (Bld) 0.2 % Normal 0.2-2.0 [facility] Comment on above: Performed By: #### C BC ####[facility] Xxtlqnsigd5645[address] [place], [place] [address]Dr. Chapisrenu Pulliam EO # 0.2 103/ul Normal 0.0-0.7 [facility] Comment on above: Performed By: #### C BC ####[facility] Mpbfogonue1154[address] [place], [place] [address]Dr. Chapisrenu Pulliam Eosinophils/100 WBC (Bld) 1.3 % Normal 0.9-7.0 [facility] Comment on above: Performed By: #### C BC ####[facility] Ubnvnsuhna1836[address] [place], [place] [address]Dr. Garima Heraclio Erythrocyte distribution width (RBC) [Ratio] 13.7 % Normal 11.0-15.0 [facility] Comment on above: Performed By: #### C BC ####[facility] Ytbwpsmpzx5567[address] [place], [place] [address]Dr. Garima Heraclio Hematocrit (Bld) [Volume fraction] 46.4 % Normal 42.0-54.0 [facility] [place] Comment on above: Performed By: #### C BC ####[facility] Jsjdjexqsh856[address] [place], [place] [address]Dr. Chapisrenu Pulliam Hemoglobin (Bld) [Mass/Vol] 15.7 g/dL Normal 14.0-18.0 [facility] Comment on above: Performed By: #### C BC ####[facility] Fljgowmzlm2406[address] [place], [place] [address]Dr. Garima Pulliam IG # 0.04 10e3/ul Critically high 0.00-0.03 [facility] Comment on above: Performed By: #### C BC ####[facility] Ejbentuipx2725 [place] [address]DrAdalberto Chapisrenu Pulliam IG % 0.3 % Normal 0.0-0.5 [facility] Comment on above: Performed By: #### C BC ####[facility] Axcfhtuwxk3346 [place] [address]DrAdalberto Pulliam LYMPH # 1.7 103/ul Normal 1.2-3.8 [facility] Comment on above: Performed By: #### C BC ####[facility] Rpnyvajwwl4453 [place] [address]DrAdalberto Pulliam Lymphocytes/100 WBC (Bld) 11.5 % Critically low 20.5-60.0 [facility] Comment on above: Performed By: #### C BC ####[facility] Stqynvlklu1818 [place] [address]DrAdalberto Pulliam MANUAL DIFF REQ NO Normal [facility] Comment on above: Performed By: #### C BC ####[facility] Gzsyzcdxoh4538 [place] [address]DrAdalberto Garima Heraclio MCH (RBC) [Entitic mass] 31.0 pg Normal 25.9-34.0 [facility] Comment on above: Performed By: #### C BC ####[facility] Psofpnflmt7119 [place] [address]DrAdalberto Chapisrenu Pulliam MCHC (RBC) [Mass/Vol] 33.8 g/dL Normal 29.9-35.2 [facility] Comment on above: Performed By: #### C BC ####[facility] Jydcymnvuv3232 [place] [address]DrAdalberto Chapisrenu Pulliam MCV (RBC) [Entitic vol] 91.7 fL Normal 80.0-94.0 [facility] [place] Comment on above: Performed By: #### C BC ####[facility] Kkbkudwcnm9762 [place] [address]DrAdalberto Pulliam MONO # 0.8 103/ul Normal 0.3-0.8 [facility] Comment on above: Performed By: #### C BC ####[facility] Kvnrzljvrp5349 [place] [address]Dr. Garima Pulliam Monocytes/100 WBC (Bld) 5.2 % Normal 1.7-12.0 [facility] Comment on above: Performed By: #### C BC ####[facility] Jzfforoadq0653 [place] [address]Dr. Garima Pulliam NEUT # 11.7 103/ul Critically high 1.4-6.5 [facility] Comment on above: Performed By: #### C BC ####[facility] Haflkgcdzf3731 [place] [address]Dr. Garima Pulliam Neutrophils/100 WBC (Bld) 81.5 % Critically high 43.0-75.0 [facility] Comment on above: Performed By: #### C BC ####[facility] Zavckqnurg4577 [place] [address]Dr. Garima Pulliam Platelet mean volume (Bld) [Entitic vol] 8.6 fL Critically low 9.5-13.5 [facility] Comment on above: Performed By: #### C BC ####[facility] Mmvmigyqkv100[address] [place], [place] [address]Dr. Garima Pulliam PLT 191 103/ul Normal 150-450 [facility] Comment on above: Performed By: #### C BC ####[facility] Rimazuhcat4734 [place] [address]Dr. Garima Pulliam RBC 5.06 106/ul Normal 4.70-6.10 [facility] Comment on above: Performed By: #### C BC ####[facility] Zohonaryej1632 [place] [address]Dr. Garima Pulliam WBC 14.4 103/ul Critically high 4.0-11.0 [facility] Comment on above: Performed By: #### C BC ####[facility] Mupbooqzyc3773 [place] [address]Dr. Garima Pulliam [facility]24 SARS-CoV-2 (COVID-19) RNA MARIE+probe Ql (Unsp spec) Not detected Normal NOT DETECTED [facility] Comment on above: Result Comment: When [...] for this test is supported by the [employer] Received of Health and Human Service's declaration that [...] be used). Performed By: #### C VDTBH ####[facility] Wvndolysqp7508 [place] [address]Dr. Garima Pulliam LACTATE/LACTIC ACIDon 2021 Lactate [Moles/Vol] 1.0 mmol/L Normal 0.4-1.9 [facility] Comment on above: Performed By: #### L ACT ####[facility] Vhijjliqfc1334 [place] [address]Dr. Garima Pulliam PROF CHEM 8 (BAS METB)on Anion gap [Moles/Vol] 11.6 mmol/L Normal [facility] Comment on above: Performed By: #### B MP, CMADM ####[facility] Zzvgbiftac4232 [place] [address]Dr. Garima Pulliam Calcium [Mass/Vol] 9.2 mg/dL Normal 8.5-10.1 [facility] Comment on above: Performed By: #### B MP, CMADM ####[facility] Zkikglgvgz9033 [place] [address]Dr. Garima Pulliam Chloride [Moles/Vol] 105 mmol/L Normal 98-107 [facility] Comment on above: Performed By: #### B DAVID, CMADM ####[facility] Vvepertwvw8988 [place] [address]Dr. Garima Pulliam CO2 [Moles/Vol] 25.9 mmol/L Normal 21.0-32.0 [facility] Comment on above: Performed By: #### B DAVID, CMADM ####[facility] Ivnasiygrw0716 [place] [address]Dr. Garima Pulliam Creatinine [Mass/Vol] 0.72 mg/dL Normal 0.70-1.30 [facility] Comment on above: Performed By: #### B DAVID, CMADM ####[facility] Kyagmeeief1813 [place] [address]Dr. Garima Pulliam EGFR-AF TUVALUAN >60 Normal >=60 [facility] Comment on above: Performed By: #### B DAVID, CMADM ####[facility] Ofsrpabtnt7373 [place] [address]Dr. Garima Pulliam EGFR-NON AF TUVALUAN >60 Normal >=60 [facility] Comment on above: Performed By: #### B DAVID, CMADM ####[facility] Hvexnmlyxf3013 [place] [address]Dr. Garima Pulliam Glucose [Mass/Vol] 111 mg/dL Critically high 74-106 [facility] Comment on above: Performed By: #### B DAVID, CMADM ####[facility] Zsyhxwnbdg9799 [place] [address]Dr. Garima Pulliam Potassium [Moles/Vol] 3.5 mmol/L Normal 3.5-5.1 [facility] Comment on above: Performed By: #### B DAVID, CMADM ####[facility] Untddllnuz1453 [place] [address]Dr. Garima Pulliam Sodium [Moles/Vol] 139 mmol/L Normal 136-145 [facility] Comment on above: Performed By: #### B DAVID, CMADM ####[facility] Agbpfoiwmt3426 [place] [address]Dr. Garima Pulliam Urea nitrogen [Mass/Vol] 7.0 mg/dL Normal 7.0-18.0 [facility] Comment on above: Performed By: #### B NANCY HERNANDEZ ####[facility] X[address]ymxaain1944 [place], [place] [address]Lz. Garima Heraclio Urea nitrogen/Creatinine [Mass ratio] 9.7 mg/mg Normal [facility] Comment on above: Performed By: #### B DAVID, NANCY ####[facility] Ncslpranbv1538 [place], [place] [address]Ts. Garima Pulliam XR CHEST 1 Von 09-12-2022 XR CHEST 1 V Normal [facility] Encounters Encounter Date Encounter Type Care [...] Facility:[facility] Start: 11-27-2022 End: 11-27-2022 ambulatory LEIA lGover Facility:[facility] Start: 11-25-2022 End: 11-25-[address] [...] Facility:H1 Payers Date Payer Category Payer Unknown [id number] Medicaid [id number] 1960 Unknown [id number] 1960 Unknown [id number] 1954 Unknown [id number] 2.16.84 0.1.093698.3.579.2.593 1954 Unknown [id number] 2.16.84 0.1.878118.3.579.2.593 1954 Unknown [id number] 2.16.84 0.1.739242.3.579.2.593 1954 Unknown [id number] 2.16.84 0.1.695557.3.579.2.593 1954 Unknown [id number] 2.16.84 0.1.524208.3.579.2.593 1954 Unknown [id number] 2.16.84 0.1.120391.3.579.2.593 1954 Unknown [id number] 2.16.84 0.1.815598.3.579.2.593 1954 Unknown [id number] 2.16.84 0.1.366682.3.579.2.593 1954 Unknown [id number] 2.16.84 0.1.034220.3.579.2.593 1954 Unknown [id number] 2.16.84 0.1.506941.3.579.2.593 1954 Unknown [id number] 2.16.84 0.1.467259.3.579.2.593 1954 Unknown [id number] 2.16.84 0.1.700117.3.579.2.593 1954 Unknown [id number] 2.16.84 0.1.916536.3.579.2.593 1954 Unknown [id number] 2.16.84 0.1.487626.3.579.2.593 1954 Unknown [id number] 2.16.84 0.1.835132.3.579.2.593 1954 Unknown [id number] 2.16.84 0.1.271211.3.579.2.593 1954 Unknown [id number] 2.16.84 0.1.050354.3.579.2.593 1954 Unknown [id number] 2.16.84 0.1.156172.3.579.2.593 1954 Unknown [id number] 2.16.84 0.1.060755.3.579.2.593 1954 Unknown [id number] 2.16.84 0.1.496094.3.579.2.593 Summary Purpose Family History No Family History Records Found Advance Directives No Advanced Directives Records Found Additional Source Comments (unrecognized sect ion and content) No Status Records Found INFORMATION SOURCE (unrecogn ized section and content) DATE CREATED AUTHOR 04/08/2023 The [facility] FOR RECORDS PERTAINING TO PATIENTS WHO ARE [...] BE BASED ON THE PRIMARY CLINICAL RECORDS. [facility] provides no warranty or guarantee of the accuracy or completeness of information in this document.
--- NOTE | 2023-12-24 20:23 | XR_ITS ---
[facility] [id number] Patient Name: CONSTANZA BARRETO MRN: [id number] date: 1955 Sex: M Assigned Patient Location: ED.MAIN Current Patient Location: ER Accession/Order Number: [id number] Exam Date: 12/24/2023 21:08 Report Date: 12/24/2023 21:27 At the request of: JENNIFER JIMENEZ Procedure: XR chest 1V EXAM: XR chest 1V HISTORY: shortness of breath COMPARISON: Chest x-ray 11/24/2023 TECHNIQUE: Single AP radiograph of the chest FINDINGS: Right apical opacity could reflect infectious process. No pneumothorax or pleural effusion. Normal heart size. Chronic left-sided rib fractures are noted. XR/XR chest 1V IMPRESSION: Opacity at the right upper lobe could reflect an infectious process. Electronically authenticated by: ANAMARIA DUENSA Date: 12/24/2023 21:27
--- NOTE | 2023-12-24 20:23 | ECG_ITS ---
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
--- NOTE | 2023-12-24 20:24 | ED_ITS ---
HPI - SOB/Dyspnea General Chief Complaint: Shortness of Breath/Dyspnea Stated Complaint: sob Time Seen by Provider: 12/24/23 20:14 Source: patient Mode of arrival: Wheelchair History of Present Illness HPI Narrative: Patient complains of shortness of breath. I saw him one week ago for the same. He refused workup but agreed to respiratory treatment/neb before discharge. I prescribed prednisone, antibiotics and an additional albuterol inhaler because he was out. he said that he did not have any money so he did not get the prescriptions filled. He asked to just get a breathing treatment but he also has new bilateral LE edema. I convinced him to stay and get some testing today. Related Data Home Medications Medication Instructions Recorded Confirmed losartan 25 mg tablet (Cozaar) 25 mg PO DAILY 10/22/23 11/02/23 omeprazole 20 mg capsule,delayed 20 mg PO DAILY 10/22/23 11/02/23 release albuterol sulfate 2.5 mg/3 mL 2.5 mg inhalation Q6H 11/02/23 11/02/23 (0.083 %) solution for nebulization Previous Rx's Medication Instructions Recorded albuterol sulfate 90 mcg/actuation 2 inh inhalation Q6H PRN shortness 12/17/23 aerosol inhaler of breath or wheezing #8.5 grams azithromycin 250 mg tablet See Rx Instructions PO .COMPLEX #6 12/17/23 tabs prednisone 20 mg tablet 20 mg PO DAILY #9 tabs 12/17/23 albuterol sulfate 90 mcg/actuation 2 inh inhalation Q6H PRN shortness 12/24/23 aerosol inhaler of breath or wheezing #8.5 grams azithromycin 250 mg tablet See Rx Instructions PO .COMPLEX #6 12/24/23 tabs prednisone 20 mg tablet 40 mg (2 x 20 mg) PO BID 5 days 12/24/23 #10 tabs Allergies Allergy/AdvReac Type Severity Reaction Status Date / Time No Known Drug Allergies Allergy Verified 11/24/23 16:17 [facility] Medical History (Updated 12/24/23 @ 21:48 by Rigoberto Patterson) RLL pneumonia ?J18.9 - Pneumonia, unspecified organism (ICD-10) COPD (chronic obstructive pulmonary disease) ?J44.9 - Chronic obstructive pulmonary disease, unspecified (ICD-10) Social History Smoking status: Current every day smoker Exam Narrative Exam Narrative: Nurses notes and vital signs reviewed and patient is not hypoxic. afebrile General: Well-appearing and in no apparent distress. Skin: Warm, dry, no pallor noted. No rash. Head: Normocephalic, atraumatic. Neck: Supple, non-tender. Eye: Pupils are equal, round and EOMI. No scleral icterus. Ears, Nose, Mouth, and Throat: TM are clear, no posterior oropharynx erythema or nasal mucosal hypertrophy, uvula is mid-line Oral mucosa is moist Cardiovascular: Regular Rate and Rhythm without murmur, gallop or rub. Respiratory: Tachypnea but no accessory muscle use or respiratory distress. Lungs with diffuse expiratory wheezing and rhonchi Musculoskeletal: normal ROM, no calf or popliteal tenderness. Bilateral lower extremity edema/swelling Neurological: A&O x4. No cranial nerve dysfunction observed. No truncal ataxia. Moves all extremities. Sensation intact. Psychiatric: Cooperative and interactive. Normal mood and affect. Constitutional Vital Signs, click to edit/add: Last Vital Signs Temp 98.1 F 12/24/23 20:18 Pulse 81 12/24/23 20:55 Resp 23 12/24/23 20:55 BP 174/94 H 12/24/23 20:18 Pulse Ox 95 12/24/23 20:55 O2 Del Method Nasal Cannula 12/24/23 20:55 O2 Flow Rate 2 12/24/23 20:55 Course Vital Signs Vital signs: Vital Signs Temperature 98.1 F 12/24/23 20:18 Pulse Rate 97 H 12/24/23 20:18 Respiratory Rate 22 12/24/23 20:18 Blood Pressure 174/94 H 12/24/23 20:18 Pulse Oximetry 93 L 12/24/23 20:18 Oxygen Delivery Method Room Air 12/24/23 20:18 Temperature 98.1 F 12/24/23 20:18 Pulse Rate 81 12/24/23 20:55 Respiratory Rate 23 12/24/23 20:55 Blood Pressure 174/94 H 12/24/23 20:18 Pulse Oximetry 95 12/24/23 20:55 Oxygen Delivery Method Nasal Cannula 12/24/23 20:55 Oxygen Delivery Flow Rate 2 12/24/23 20:55 MDM - SOB/Dyspnea MDM Narrative Medical decision making narrative: Patient was placed on alarm security or surveillance monitor and EKG obtained. Blood drawn and sent for evaluation. Portable chest x-ray obtained. He was ordered to receive IV Solu- Medrol and a DuoNeb treatment. CBC normal BMP unremarkable, including kidney function and troponin was negative. CXR revealed right upper lobe opacity per radiologist. I will once again prescribed streoid course, antibiotics and refill of the patient's albuterol, since he did not pick that up last time. Lab Data Attestation: I reviewed the patient's lab results. Labs: Lab Results 12/24/23 Range/Units 20:31 WBC 9.4 (4.0-11.0) 10^3/uL RBC 4.44 L (4.70-6.10) 10^6/uL Hgb 13.2 L (14.0-18.0) g/dL Hct 40.3 L (42.0-54.0) % MCV 90.8 (80.0-94.0) fL MCH 29.7 (25.9-34.0) pg MCHC 32.8 (29.9-35.2) g/dL RDW 13.6 (11.0-15.0) % Plt Count 212 (150-450) 10^3/uL MPV 8.7 L (9.5-13.5) fL Neut % (Auto) 71.0 (43.0-75.0) % Lymph % (Auto) 19.5 L (20.5-60.0) % [place] % (Auto) 7.4 (1.7-12.0) % Eos % (Auto) 1.7 (0.9-7.0) % Baso % (Auto) 0.1 L (0.2-2.0) % Neut # (Auto) 6.7 H (1.4-6.5) 10^3/uL Lymph # (Auto) 1.8 (1.2-3.8) 10^3/uL [place] # (Auto) 0.7 (0.3-0.8) 10^3/uL Eos # (Auto) 0.2 (0.0-0.7) 10^3/uL Baso # (Auto) 0.0 (0.0-0.1) 10^3/uL Abs Immat Gran (auto) 0.03 (0.00-0.03) 10^3/uL Imm/Tot Granulo (auto) 0.3 (0.0-0.5) % Sodium 141 (136-145) mmol/L Potassium 3.3 L (3.5-5.1) mmol/L Chloride 105 (98-107) mmol/L Carbon Dioxide 30.8 (21.0-32.0) mmol/L Anion Gap 8.5 BUN 5.0 L (7.0-18.0) mg/dL Creatinine 0.86 (0.70-1.30) mg/dL Est GFR ( Amer) >60 (>=60) Est GFR (Non-Af Amer) >60 (>=60) BUN/Creatinine Ratio 5.8 Glucose 295 H (74-106) mg/dL Calcium 8.5 (8.5-10.1) mg/dL Troponin I High Sens 14.7 (4.0-76.1) pg/mL Imaging Data Chest x-ray: Radiologist's impression: ITS Impressions Chest X-Ray 12/24/23 20:23 IMPRESSION: Opacity at the right upper lobe could reflect an infectious process. Electronically authenticated by: ANAMARIA DUENAS Date: 12/24/2023 21:27 ECG Data Attestation: I personally reviewed and interpreted this ECG as follows: Interpretation: EKG interpretation: Emergency Department physician interpretation. Normal sinus rhythm at 91bpm. Normal axis, normal intervals. non specific T wave changes but no ST segment elevation or depression. Smoking Cessation Time spent discussing smoking cessation with patient: 3 to 10 minutes Patient Acknowledges Need for Cessation: Yes Additional Comments: patient said, as he has in the past, he will never quit smoking. Discharge Plan Discharge Chief Complaint: Shortness of Breath/Dyspnea Clinical Impression: Community acquired pneumonia, Tobacco abuse, Acute exacerbation of chronic obstructive pulmonary disease (COPD) Patient Disposition: Home, Self-Care Time of Disposition Decision: 21:48 Prescriptions / Home Meds: New azithromycin 250 mg tablet See Rx Instructions .ROUTE .COMPLEX Qty: 6 0RF Rx Instructions: For 250 mg dose pack: take 500 mg today (day 1), then 250 mg for 4 days (days 2-5) albuterol sulfate 90 mcg/actuation HFA aerosol inhaler 2 inh inhalation Q6H PRN (Reason: shortness of breath or wheezing) Qty: 8.5 0RF prednisone 20 mg tablet 40 mg PO BID 5 Days Qty: 10 0RF No Action losartan [Cozaar] 25 mg tablet 25 mg PO DAILY omeprazole 20 mg capsule,delayed release(DR/EC) 20 mg PO DAILY albuterol sulfate 2.5 mg /3 mL (0.083 %) solution for nebulization 2.5 mg inhalation Q6H prednisone 20 mg tablet 20 mg PO DAILY Qty: 9 0RF Rx Instructions: 40mg daily for 3 days then 20mg daily for 3 more days azithromycin 250 mg tablet See Rx Instructions .ROUTE .COMPLEX Qty: 6 0RF Rx Instructions: For 250 mg dose pack: take 500 mg today (day 1), then 250 mg for 4 days (days 2-5) albuterol sulfate 90 mcg/actuation HFA aerosol inhaler 2 inh inhalation Q6H PRN (Reason: shortness of breath or wheezing) Qty: 8.5 2RF Instructions: How to Stop Smoking (ED), COPD (Chronic Obstructive Pulmonary Disease) (ED), Community Acquired Pneumonia (ED) Stand Alone Forms: Portal Instructions Referrals: Physician,Non-Staff, MD [Primary Care Provider] - 1 week
[2023-12-24] MEDS: METHYLPREDNISOLONE SOD SUCC PF 125 MG/2 ML VIAL IVP (20:35)
--- NOTE | 2023-12-24 20:40 | PC.NURSE ---
placed on 2l NC for patient confort
[2023-12-24 20:46] LABS: Basophils Percent Auto 0.1 % (0.2-2.0); Eosinophils Absolute Auto 0.2 10^3/uL (0.0-0.7); Eosinophils Percent Auto 1.7 % (0.9-7.0); Hematocrit 40.3 % (42.0-54.0); Hemoglobin 13.2 g/dL (14.0-18.0); Immature Granulocytes Abs Auto 0.03 10^3/uL (0.00-0.03); Immature Granulocytes Pct Auto 0.3 % (0.0-0.5); Lymphocytes Absolute Auto 1.8 10^3/uL (1.2-3.8); Lymphocytes Percent Auto 19.5 % (20.5-60.0); Mean Corpuscular HGB Conc 32.8 g/dL (29.9-35.2); Mean Corpuscular Hemoglobin 29.7 pg (25.9-34.0); Mean Corpuscular Volume 90.8 fL (80.0-94.0); Mean Platelet Volume 8.7 fL (9.5-13.5); Monocytes Absolute Auto 0.7 10^3/uL (0.3-0.8); Monocytes Percent Auto 7.4 % (1.7-12.0); Neutrophils Absolute Auto 6.7 10^3/uL (1.4-6.5); Platelet Count 212 10^3/uL (150-450); Red Blood Count 4.44 10^6/uL (4.70-6.10); Red Cell Distribution Width 13.6 % (11.0-15.0); White Blood Count 9.4 10^3/uL (4.0-11.0)
--- NOTE | 2023-12-24 20:46 | PC.NURSE ---
patient agitated about being in bed. patient rapidly scooted to the end of the bed to get up and sit in chair. Patient calmed once seated
[2023-12-24] MEDS: IPRATROPIUM/ALBUTEROL SULFATE 3 ML AMPUL.NEB IH (20:55)
[2023-12-24 21:05] LABS: Anion Gap 8.5; BUN Creatinine Ratio 5.8; Calcium 8.5 mg/dL (8.5-10.1); Carbon Dioxide 30.8 mmol/L (21.0-32.0); Chloride 105 mmol/L (98-107); Estimated GFR (African America >60 (>=60); Estimated GFR (Non-African Ame >60 (>=60); Glucose 295 mg/dL (74-106); Potassium 3.3 mmol/L (3.5-5.1); Sodium 141 mmol/L (136-145); Troponin I High Sensitivity 14.7 pg/mL (4.0-76.1)
== END 2023-12-24 22:08 | disposition home or self-care (01) ==
PROVIDERS: Emergency Provider Emergency Medicine
DX: J18.9 Pneumonia, unspecified organism (principal); J44.0 Chronic obstructive pulmonary disease with (acute) lower respiratory infection; J44.1 Chronic obstructive pulmonary disease with (acute) exacerbation; I10 Essential (primary) hypertension; Z79.899 Other long term (current) drug therapy; F17.210 Nicotine dependence, cigarettes, uncomplicated
CPT/HCPCS: 36415; 71045; 80048; 84484; 85025; 93005; 94640; 96374; 99285; J2930

== ENCOUNTER 2023-12-25 18:05 | Observation (INO) | payer MEDICARE, SELFPAY ==
[2023-12-25] VITALS (13 sets, daily range): BP systolic 170–200; BP diastolic 83–100; PULSE 65–84; RESP 20–24; TEMP 36.7–36.9; O2SAT 91–97; BMI 33.5; BMI 25.0
--- OUTSIDE RECORDS SUMMARY | 2023-12-25 18:13 | XMS_ITS | CCD ---
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 Garima Pulliam Basophils/100 WBC (Bld) 0.3 % Normal 0.2-2.0 [facility] Comment on above: Performed By: #### C BC ####[facility] Kyinehvrab8995 [place], [place] [address]VdAdalberto Pulliam EO # 0.3 103/ul Normal 0.0-0.7 [facility] Comment on above: Performed By: #### C BC ####[facility] Pmsbsbevju8343 [place] [id number]. Garima Pulliam Eosinophils/100 WBC (Bld) 2.8 % Normal 0.9-7.0 [facility] Comment on above: Performed By: #### C BC ####[facility] Jidvwcyhex8922 [place] [address]Dr. Garima Pulliam Erythrocyte distribution width (RBC) [Ratio] 13.4 % Normal 11.0-15.0 [facility] Comment on above: Performed By: #### C BC ####[facility] Oulvzxaggw[address] [place], [place] [address]Dr. Garima Pulliam Hematocrit (Bld) [Volume fraction] 45.7 % Normal 42.0-54.0 [facility] Comment on above: Performed By: #### C BC ####[facility] Qhsj[address] [place], [place] [address]Dr. Garima Pulliam Hemoglobin (Bld) [Mass/Vol] 15.2 g/dL Normal 14.0-18.0 [facility] Comment on above: Performed By: #### C BC ####[facility] Pdhxsfvchm[address] [place], [place] [address]Dr. Garima Pulliam IG # 0.02 10e3/ul Normal 0.00-0.03 [facility] Comment on above: Performed By: #### C BC ####[facility] Shwmk[address]zca[address] [place], [place] [address]Dr. Garima Pulliam IG % 0.2 % Normal 0.0-0.5 [facility] Comment on above: Performed By: #### C BC ####[facility] Okhjqbhzgx[address] [place], [place] [address]Dr. Garima Pulliam LYMPH # 2.1 103/ul Normal 1.2-3.8 [facility] Comment on above: Performed By: #### C BC ####[facility] Zgutudbbzr[address] [place], [place] [address]Dr. Garima Pulliam Lymphocytes/100 WBC (Bld) 23.7 % Normal 20.5-60.0 [facility] Comment on above: Performed By: #### C BC ####[facility] Imyeiptlhs3801 [place] [phone]. Garima Pulliam MANUAL DIFF REQ NO Normal [facility] Comment on above: Performed By: #### C BC ####[facility] Rrbohgkqix9528 [place] [phone]. Garima Pulliam MCH (RBC) [Entitic mass] 30.4 pg Normal 25.9-34.0 [facility] Comment on above: Performed By: #### C BC ####[facility] Axunhqoniz[address] [place], [place] [address]Dr. Garima Pulliam MCHC (RBC) [Mass/Vol] 33.3 g/dL Normal 29.9-35.2 [facility] Comment on above: Performed By: #### C BC ####[facility] Yzefvykxjy[address] [place], [place] [address]Dr. Garima Pulliam MCV (RBC) [Entitic vol] 91.4 fL Normal 80.0-94.0 [facility] Comment on above: Performed By: #### C BC ####[facility] Yyfxuswsey[address] [place], [place] [address]Dr. Garima Pulliam MONO # 0.7 103/ul Normal 0.3-0.8 [facility] Comment on above: Performed By: #### C BC ####[facility] Jyjsnnzweg[address] [place], [place] [address]Dr. Chapisrenu Pulliam Monocytes/100 WBC (Bld) 8.3 % Normal 1.7-12.0 [facility] Comment on above: Performed By: #### C BC ####[facility] Dhjotkfhjl[address] [place], [place] [address]Dr. Garima Pulliam NEUT # 5.8 103/ul Normal 1.4-6.5 [facility] Comment on above: Performed By: #### C BC ####[facility] Lnmxqyzorp[address] [place], [place] [address]Dr. Garima Pulliam Neutrophils/100 WBC (Bld) 64.7 % Normal 43.0-75.0 [facility] Comment on above: Performed By: #### C BC ####[facility] Hvtivkrgtw2797 [place] [id number]. Garima Pulliam Platelet mean volume (Bld) [Entitic vol] 8.6 fL Critically low 9.5-13.5 [facility] Comment on above: Performed By: #### C BC ####[facility] Slnmzcnnke4705 [place] [address]Dr. Garima Pulliam PLT 230 103/ul Normal 150-450 [facility] Comment on above: Performed By: #### C BC ####[facility] Bhywaozyxn5095 [place] [address]Dr. Garima Pulliam RBC 5.00 106/ul Normal 4.70-6.10 [facility] Comment on above: Performed By: #### C BC ####[facility] Qhiqpqanet7192 [place] [address]Dr. Garima Pulliam WBC 9.0 103/ul Normal 4.0-11.0 [facility] Comment on above: Performed By: #### C BC ####[facility] Audxnxpvie7[address] [place], [place] [address]Dr. Garima Pulliam MAGNESIUMon 04-04-2023 Magnesium [Mass/Vol] 1.8 mg/dL Normal 1.8-2.4 [facility] Comment on above: Performed By: #### M G ####[facility] Vowowrtvom[address] [place], [place] [address]Dr. Garima Pulliam PROF 14(COMP METB)on 023 Albumin [Mass/Vol] 3.8 g/dL Normal 3.4-5.0 [facility] Comment on above: Performed By: #### C MP ####[facility] Mqbvkaoehu[address] [place], [place] [address]Dr. Garima Pulliam Albumin/Globulin [Mass ratio] 1.2 {ratio} Normal [facility] Comment on above: Performed By: #### C MP ####[facility] Kkjcfpqndj4378 [place] [address]Dr. Garima Pulliam ALP [Catalytic activity/Vol] 84 U/L Normal 46-116 [facility] Comment on above: Performed By: #### C MP ####[facility] Ouulingzql0572 [place] [id number]. Garima Pulliam ALT [Catalytic activity/Vol] 31 U/L Normal 16-63 [facility] Comment on above: Performed By: #### C MP ####[facility] Gpxpcucsit8398 [place] [phone]. Garima Pulliam Anion gap [Moles/Vol] 12.2 mmol/L Normal [facility] Comment on above: Performed By: #### C MP ####[facility] Mzzagcjrxz6276 [place] [phone]. Garima Pulliam AST [Catalytic activity/Vol] 23 U/L Normal 15-37 [facility] Comment on above: Performed By: #### C MP ####[facility] Wwvygbvvdn[address] [place], [place] [address]Dr. Garima Pulliam Bilirubin [Mass/Vol] 0.5 mg/dL Normal 0.2-1.0 [facility] Comment on above: Performed By: #### C MP ####[facility] Quitlxzpqb[address] [place], [place] [address]Dr. Garima Pulliam Calcium [Mass/Vol] 9.2 mg/dL Normal 8.5-10.1 [facility] Comment on above: Performed By: #### C MP ####[facility] Esjbkxowgl[address] [place], [place] [address]Dr. Garima Pulliam Chloride [Moles/Vol] 103 mmol/L Normal 98-107 [facility] Comment on above: Performed By: #### C MP ####[facility] Kbtdqbvjyp[address] [place], [place] [address]Dr. Garima Pulliam CO2 [Moles/Vol] 28.5 mmol/L Normal 21.0-32.0 [facility] Comment on above: Performed By: #### C MP ####[facility] Bygdgaesmn[address] [place], [place] [address]Dr. Garima Pulliam Creatinine [Mass/Vol] 0.74 mg/dL Normal 0.70-1.30 [facility] Comment on above: Performed By: #### C MP ####[facility] Akdvsrimjz7087 [place] [phone]. Garima Pulliam EGFR-AF CITIZEN [place] >60 Normal >=60 [facility] Comment on above: Performed By: #### C MP ####[facility] Gbqvfkplxl3978 [place] [phone]. Garima Pulliam EGFR-NON AF CITIZEN OF [place] >60 Normal >=60 [facility] Comment on above: Performed By: #### C MP ####[facility] Sgibbpmhyf6081 [place] [address]Dr. Garima Pulliam Globulin (S) [Mass/Vol] 3.1 g/dL Normal [facility] Comment on above: Performed By: #### C MP ####[facility] Xtkbrptpry8302 [place] [address]Dr. Garima Pulliam Glucose [Mass/Vol] 93 mg/dL Normal 74-106 The [facility] Comment on above: Performed By: #### C MP ####[facility] Vjtookohid7365 [place] [address]Dr. Garima Pulliam Potassium [Moles/Vol] 3.7 mmol/L Normal 3.5-5.1 [facility] Comment on above: Performed By: #### C MP ####[facility] Agmravuuuv3335 [place] [address]Dr. Garima Pulliam Protein [Mass/Vol] 6.9 g/dL Normal 6.4-8.2 [facility] Comment on above: Performed By: #### C MP ####[facility] Vlfkdygccm9281 [place] [address]Dr. Garima Pulliam Sodium [Moles/Vol] 140 mmol/L Normal 136-145 [facility] Comment on above: Performed By: #### C MP ####[facility] Bjleqjpvbj0599 [place] [address]Dr. Garima Pulliam Urea nitrogen [Mass/Vol] 8.0 mg/dL Normal 7.0-18.0 [facility] Comment on above: Performed By: #### C MP ####[facility] Nrgvdoeezh1137 [place] [address]Dr. Garima Pulliam Urea nitrogen/Creatinine [Mass ratio] 10.8 mg/mg Normal [facility] Comment on above: Performed By: #### C MP ####[facility] Pvejxpxngi2313 [place] [address]Dr. Garima Pulliam AMMONIAon 03-30-2023 Ammonia (P) [Moles/Vol] 11 umol/L Normal 11-32 [facility] Comment on above: Performed By: #### A MM ####[facility] Zydkqyxwzz[address] [place], [place] [address]Dr. Chapisrenu Pulliam CARDIAC NASH ADMITon 023 CK [Catalytic activity/Vol] 232 U/L Normal 39-308 [facility] Comment on above: Performed By: #### C DAVID, CMADM ####[facility] Yourlystrx220[address] [place], [place] [address]Dr. Chapisrenu Pulliam CK.MB [Mass/Vol] 4.83 ng/mL Critically high <=3.60 [facility] Comment on above: Performed By: #### C DAVID, CMADM ####[facility] Vpbrlitxmq[address] [place], [place] [address]Dr. Garima Pulliam HSTROP 10.5 pg/mL Normal 4.0-76.1 [facility] Comment on above: Result Comment: CUT- OFF POINTS HAVE BEEN ESTABLISHED BASED ON THE FOURTH UNIVERSAL DEFINITIONS OF MYOCARDIALINFARCTION. THE UPPER REFERENCE LIMIT (URL) OF TROPONIN, DEFINED THE 99TH PERCENTILE OFcTnI DISTRIBUTION IN A REFERENCE POPULATION, HAS BEEN CONFIRMED THE DECISION THRESHOLDFOR PA DIAGNOSIS. Performed By: #### C DAVID, CMADM ####[facility] Qyxcjvhoxz3179 [place] [address]Dr. Chapisrenu Pulliam DORIS 79 ng/mL Normal 16-96 [facility] Comment on above: Performed By: #### C DAVID, CMADM ####[facility] Hdasaalpyy[address] [place], [place] [address]Dr. Chapisrenu Pulliam CBC AUTO DIFFon 03-30-2023 BASO # 0.0 103/ul Normal 0.0-0.1 [facility] Comment on above: Performed By: #### C BC ####[facility] Ovobarnboe6479 [place] [phone]. Garima Pulliam Basophils/100 WBC (Bld) 0.1 % Critically low 0.2-2.0 [facility] Comment on above: Performed By: #### C BC ####[facility] Dqdqzmzzwt7[address] [place], [place] [address]Dr. Garima Pulliam EO # 0.3 103/ul Normal 0.0-0.7 [facility] Comment on above: Performed By: #### C BC ####[facility] Yqznggtwwh[address] [place], [place] [address]Dr. Garima Pulliam Eosinophils/100 WBC (Bld) 3.3 % Normal 0.9-7.0 [facility] Comment on above: Performed By: #### C BC ####[facility] Cbqlqspdrn378[address] [place], [place] [address]Dr. Garima Pulliam Erythrocyte distribution width (RBC) [Ratio] 13.5 % Normal 11.0-15.0 [facility] Comment on above: Performed By: #### C BC ####[facility] Rxdddnycqb20[address] [place], [place] [address]Dr. Garima Pulliam Hematocrit (Bld) [Volume fraction] 42.9 % Normal 42.0-54.0 [facility] Comment on above: Performed By: #### C BC ####[facility] Ttpgyzstlg[address] [place], [place] [address]Dr. Garima Pulliam Hemoglobin (Bld) [Mass/Vol] 13.9 g/dL Critically low 14.0-18.0 [facility] Comment on above: Performed By: #### C BC ####[facility] Mxajatapti[address] [place], [place] [address]Dr. Garima Pulliam IG # 0.01 10e3/ul Normal 0.00-0.03 [facility] Comment on above: Performed By: #### C BC ####[facility] Berpeyqrql[address] [place], [place] [address]Dr. Garima Pulliam IG % 0.1 % Normal 0.0-0.5 [facility] Comment on above: Performed By: #### C BC ####[facility] Qtqhuwukdb5676 [place] [phone]. Garima Pulliam LYMPH # 1.7 103/ul Normal 1.2-3.8 [facility] Comment on above: Performed By: #### C BC ####[facility] Tmrzxijzrd2017 [place] [phone]. Garima Pulliam Lymphocytes/100 WBC (Bld) 22.8 % Normal 20.5-60.0 [facility] Comment on above: Performed By: #### C BC ####[facility] Vdxapgfwyb3973 [place] [phone]. Garima Pulliam MANUAL DIFF REQ NO Normal [facility] Comment on above: Performed By: #### C BC ####[facility] Wgfmirczvg3517 [place] [phone]. Garima Pulliam MCH (RBC) [Entitic mass] 30.5 pg Normal 25.9-34.0 [facility] Comment on above: Performed By: #### C BC ####[facility] Jatcawpmnv9778 [place] [phone]. Garima Pulliam MCHC (RBC) [Mass/Vol] 32.4 g/dL Normal 29.9-35.2 [facility] Comment on above: Performed By: #### C BC ####[facility] Eewdqhkflj9241 [place] [phone]. Garima Pulliam MCV (RBC) [Entitic vol] 94.1 fL Critically high 80.0-94.0 [facility] Comment on above: Performed By: #### C BC ####[facility] Dmrbpjnukh7561 [place] [phone]. Garima Pulliam MONO # 0.7 103/ul Normal 0.3-0.8 [facility] Comment on above: Performed By: #### C BC ####[facility] Hssdhpwdti6848 [place] [phone]. Garima Pulliam Monocytes/100 WBC (Bld) 8.6 % Normal 1.7-12.0 [facility] Comment on above: Performed By: #### C BC ####[facility] Evowriifsx5429 [place] [phone]. Garima Pulliam NEUT # 4.9 103/ul Normal 1.4-6.5 [facility] Comment on above: Performed By: #### C BC ####[facility] Rqqlnhyllj2800 [place] [phone]. Garima Pulliam Neutrophils/100 WBC (Bld) 65.1 % Normal 43.0-75.0 [facility] Comment on above: Performed By: #### C BC ####[facility] Hvojaaivdt0547 [place] [phone]. Garima Pulliam Platelet mean volume (Bld) [Entitic vol] 8.5 fL Critically low 9.5-13.5 [facility] Comment on above: Performed By: #### C BC ####[facility] Cxnfacijyg6408 [place] [phone]. Garima Pulliam PLT 219 103/ul Normal 150-450 [facility] Comment on above: Performed By: #### C BC ####[facility] Ptawuhcynx8031 [place] [phone]. Garima Pulliam RBC 4.56 106/ul Critically low 4.70-6.10 [facility] Comment on above: Performed By: #### C BC ####[facility] Cijjvgzkyy2197 [place] [phone]. Garima Pulliam WBC 7.6 103/ul Normal 4.0-11.0 [facility] Comment on above: Performed By: #### C BC ####[facility] Hlyaszycsh3848 [place] [phone]. Garima Pulliam LACTATE/LACTIC ACIDon 2022 Lactate [Moles/Vol] 1.2 mmol/L Normal 0.4-2.0 [facility] Comment on above: Performed By: #### L ACT ####[facility] Qbmvwiemtq1360 [place] [phone]. Garima Pulliam MAGNESIUMon 03-30-2023 Magnesium [Mass/Vol] 1.8 mg/dL Normal 1.8-2.4 [facility] Comment on above: Performed By: #### M G ####[facility] Mquotowtdu6825 [place] [address]Dr. Garima Pulliam PROF 14(COMP METB)on 023 Albumin [Mass/Vol] 3.5 g/dL Normal 3.4-5.0 [facility] Comment on above: Performed By: #### C DAVID, NANCY ####[facility] Mrhzbwrgxk2493 [place] [address]Dr. Garima Pulliam Albumin/Globulin [Mass ratio] 1.2 {ratio} Normal [facility] Comment on above: Performed By: #### C NANCY HERNANDEZ ####[facility] Bhfbplhzoy3533 [place] [address]Dr. Garima Pulliam ALP [Catalytic activity/Vol] 85 U/L Normal 46-116 [facility] Comment on above: Performed By: #### Ethan HERNANDEZ, NANCY ####[facility] Wjxmfesjzz1948 [place] [address]Dr. Garima Pulliam ALT [Catalytic activity/Vol] 29 U/L Normal 16-63 [facility] Comment on above: Performed By: #### NANCY Long MP ####[facility] Wevkbhbihs6122 [place] [address]Dr. Garima Pulliam Anion gap [Moles/Vol] 8.0 mmol/L Normal [facility] Comment on above: Performed By: #### C DAVID, NANCY ####[facility] Vexmqvvqyl0008 [place] [address]Dr. Garima Pulliam AST [Catalytic activity/Vol] 18 U/L Normal 15-37 [facility] Comment on above: Performed By: #### C DAVID, NANCY ####[facility] Cdenepmrfy6331 [place] [address]Dr. Garima Pulliam Bilirubin [Mass/Vol] 0.4 mg/dL Normal 0.2-1.0 [facility] Comment on above: Performed By: #### NANCY Long MP ####[facility] Ofqrjsmpqi9091 [place] [address]Dr. Garima Pulliam Calcium [Mass/Vol] 8.8 mg/dL Normal 8.5-10.1 [facility] Comment on above: Performed By: #### C DAVID, NANCY ####[facility] Cwzxidvulk7766 [place] [address]Dr. Garima Pulliam Chloride [Moles/Vol] 108 mmol/L Critically high 98-107 [facility] Comment on above: Performed By: #### C DAVID, NANCY ####[facility] Pzsvemewnn8579 [place] [address]Dr. Garima Pulliam CO2 [Moles/Vol] 29.6 mmol/L Normal 21.0-32.0 [facility] Comment on above: Performed By: #### C DAVID, NANCY ####[facility] Lwtgvyntij7426 [place] [address]Dr. Garima Pulliam Creatinine [Mass/Vol] 0.77 mg/dL Normal 0.70-1.30 [facility] Comment on above: Performed By: #### C DAVID, NANCY ####[facility] Uotgbtxdva6723 [place] [address]Dr. Garima Pulliam EGFR-AF CITIZ[place] >60 Normal >=60 [facility] Comment on above: Performed By: #### C DAVID, NANCY ####[facility] Sublfttxme3233 [place] [address]Dr. Garima Pulliam EGFR-NON AF CITIZEN OF [place] >60 Normal >=60 [facility] Comment on above: Performed By: #### C DAVID, NANCY ####[facility] Ettgzpxjgl8676 [place] [phone]. Garima Pulliam Globulin (S) [Mass/Vol] 2.8 g/dL Normal [facility] Comment on above: Performed By: #### C DAVID, NANCY ####[facility] Zatilpuoul9254 [place] [address]Dr. Garima Pulliam Glucose [Mass/Vol] 207 mg/dL Critically high 74-106 [facility] Comment on above: Performed By: #### C DAVID, NANCY ####[facility] Drybjubzjh0446 [place] [address]Dr. Garima Pulliam Potassium [Moles/Vol] 4.6 mmol/L Normal 3.5-5.1 [facility] Comment on above: Performed By: #### C DAVID, CMADM ####[facility] Plqghvmaov7351 [place] [address]Dr. Garima Pulliam Protein [Mass/Vol] 6.3 g/dL Critically low 6.4-8.2 Th e [facility] Comment on above: Performed By: #### C DAVID, CMADM ####[facility] Jsifzjzupt7296 [place] [address]Dr. Garima Pulliam Sodium [Moles/Vol] 141 mmol/L Normal 136-145 [facility] Comment on above: Performed By: #### C DAVID, CMADM ####[facility] Bhyevvonjl1906 [place] [address]Dr. Chapisrenu Pulliam Urea nitrogen [Mass/Vol] 9.0 mg/dL Normal 7.0-18.0 [facility] Comment on above: Performed By: #### C DAVID, CMADM ####[facility] Gjkyejtqaf2259 [place] [address]Dr. Garima Pulliam Urea nitrogen/Creatinine [Mass ratio] 11.7 mg/mg Normal [facility] Comment on above: Performed By: #### C DAVID, CMADM ####[facility] Adzijouzym6696 [place] [address]Dr. Chapisrenu Pulliam XR CHEST 1 Von 03-30-2023 XR CHEST 1 V Normal [facility] BNPon 03-27-2023 Natriuretic peptide B (Bld) [Mass/Vol] 251.0 pg/mL Normal <=900.0 [facility] Comment on above: Performed By: #### C MP, BNP, LIPID ####[facility] Wsjpilbntd[address] [place], [place] [address]Dr. Garima Heraclio GLYCOHEMOGLOBIN A1Con 2022 ADA RECOMMENDATION SEE BELOW Normal [facility] Comment on above: Result Comment: ADA RECOMMENDED LIMIT 4.0 - 6.0 ADA THERAPEUTIC TARGET < 7.0 ACTION SUGGESTED > 7.0 Performed By: #### A 1C ####[facility] Rlnnnvxdeu5209 [place] [address]Dr. Garima Pulliam Glucose [Mass/Vol] 180 mg/dL Normal [facility] Comment on above: Performed By: #### A 1C ####[facility] Dpgvrydkxe2123 [place] [address]Dr. Garima Pulliam HbA1c (Bld) [Mass fraction] 7.9 % Critically high 4.5-6.2 [facility] Comment on above: Performed By: #### A 1C ####[facility] Csdhrrnvjs[address] [place], [place] [address]Dr. Garima Pulliam HEMOGRAM AND PLATELon 2022 Hematocrit (Bld) [Volume fraction] 45.7 % Normal 42.0-54.0 [facility] Comment on above: Performed By: #### H H ####[facility] Rtnsjaaajr[address] [place], [place] [address]Dr. Garima Pulliam Hemoglobin (Bld) [Mass/Vol] 15.1 g/dL Normal 14.0-18.0 [facility] Comment on above: Performed By: #### H H ####[facility] Rdnuihmllp[address] [place], [place] [address]Dr. Garima Pulliam MCH (RBC) [Entitic mass] 30.0 pg Normal 25.9-34.0 [facility] Comment on above: Performed By: #### H H ####[facility] Gueyifdzde[address] [place], [place] [address]Dr. Garima Pulliam MCHC (RBC) [Mass/Vol] 33.0 g/dL Normal 29.9-35.2 [facility] Comment on above: Performed By: #### H H ####[facility] Ktkrvtoawu[address] [place], [place] [address]Dr. Garima Pulliam MCV (RBC) [Entitic vol] 90.7 fL Normal 80.0-94.0 [facility] Comment on above: Performed By: #### H H ####[facility] Vtydqhepkx[address] [place], [place] [address]Dr. Garima Pulliam PLT 222 103/ul Normal 150-450 [facility] Comment on above: Performed By: #### H H ####[facility] Apnvhprqlu2854 [place] [phone]. Garima Pulliam RBC 5.04 106/ul Normal 4.70-6.10 [facility] Comment on above: Performed By: #### H H ####[facility] Uyltsgbpvj2801 [place] [phone]. Garima Pulliam WBC 8.7 103/ul Normal 4.0-11.0 [facility] Comment on above: Performed By: #### H H ####[facility] Bwotqopkbb3662 [place] [address]Dr. Garima Pulliam LIPID PROFILEon 03-27-2023 CHOL-HDL RATIO NORM SEE BELOW Normal [facility] Comment on above: Result Comment: 3.3 - 4.4 LOW RISK 4.4 - 7.1 AVERAGE RISK 7.1 - 11.0 MODERATE RISK >11.0 HIGH RISK Performed By: #### C MP, BNP, LIPID ####[facility] Epsxwcqxsz5201 [place] [place] [id number]. Garima Pulliam Cholesterol [Mass/Vol] 113 mg/dL Normal <=200 [facility] Comment on above: Performed By: #### C MP, BNP, LIPID ####[facility] Fdpjcpkdny8391 [place] [id number]. Garima Pulliam Cholesterol in HDL [Mass/Vol] 51 mg/dL Normal 40-60 [facility] Comment on above: Performed By: #### C MP, BNP, LIPID ####[facility] Tooqlhcfap9068 [place] [id number]. Garima Pulliam Cholesterol in LDL [Mass/Vol] 49.8 mg/dL Normal [facility] Comment on above: Performed By: #### C MP, BNP, LIPID ####[facility] Gjaovtzfji4007 [place] [id number]. Garima Pulliam Cholesterol.total/Cho lesterol in HDL [Mass ratio] 2.2 {ratio} Normal [facility] Comment on above: Performed By: #### C MP, BNP, LIPID ####[facility] Oytoiouytp[address] [place] [address]Dr. Garima Pulliam HDL NORMAL > or = 60 mg/dl - LOW CARDIOVASCULAR RISK <40 mg/dl - HIGH CARDIOVASCULAR RISK Normal [facility] Comment on above: Performed By: #### C MP, BNP, LIPID ####[facility] Nsftjiaqrg9695 [place] [address]Dr. Garima Pulliam LDL CALC NORMAL SEE BELOW Normal [facility] Comment on above: Result Comment: <100 mg/dl OPTIMAL 100 - 129 mg/dl NEAR OR ABOVE OPTIMAL 130 - 159 mg/dl BORDERLINE HIGH 160 - 189 mg/dl HIGH >190 mg/dl VERY HIGH Performed By: #### C MP, BNP, LIPID ####[facility] Lggaddxlta1501 [place] [address]Dr. Garima Pulliam Triglyceride [Mass/Vol] 61 mg/dL Normal <=150 [facility] Comment on above: Performed By: #### C MP, BNP, LIPID ####[facility] Xtbkybxyrb5606 [place] [address]Dr. Garima Pulliam VLDL CALC 12.2 mg/dL Normal [facility] Comment on above: Performed By: #### C MP, BNP, LIPID ####[facility] Wgqcumxial7542 [place] [address]Dr. Garima Pulliam PROF 14(COMP METB)on 023 Albumin [Mass/Vol] 3.5 g/dL Normal 3.4-5.0 [facility] Comment on above: Performed By: #### C MP, BNP, LIPID ####[facility] Vjyyhcpkky8037 [place] [address]Dr. Garima Pulliam Albumin/Globulin [Mass ratio] 1.2 {ratio} Normal [facility] Comment on above: Performed By: #### C MP, BNP, LIPID ####[facility] Lpzvyynbsl2380 [place] [address]Dr. Garima Pulliam ALP [Catalytic activity/Vol] 82 U/L Normal 46-116 [facility] Comment on above: Performed By: #### C MP, BNP, LIPID ####[facility] Szslihtxti6764 [place] [address]Dr. Garima Pulliam ALT [Catalytic activity/Vol] 33 U/L Normal 16-63 [facility] Comment on above: Performed By: #### C MP, BNP, LIPID ####[facility] Bafxinqefn1771 [place] [address]Dr. Garima Pulliam Anion gap [Moles/Vol] 9.9 mmol/L Normal [facility] Comment on above: Performed By: #### C MP, BNP, LIPID ####[facility] Mojsncgjgy7047 [place] [address]Dr. Garima Pulliam AST [Catalytic activity/Vol] 24 U/L Normal 15-37 [facility] Comment on above: Performed By: #### C MP, BNP, LIPID ####[facility] Wherdhviqz6960 [place] [address]Dr. Garima Pulliam Bilirubin [Mass/Vol] 0.6 mg/dL Normal 0.2-1.0 [facility] Comment on above: Performed By: #### C MP, BNP, LIPID ####[facility] Scqhefdhjj2197 [place] [address]Dr. Garima Pulliam Calcium [Mass/Vol] 9.2 mg/dL Normal 8.5-10.1 [facility] Comment on above: Performed By: #### C MP, BNP, LIPID ####[facility] Vvztgtpncz4546 [place] [address]Dr. Garima Pulliam Chloride [Moles/Vol] 106 mmol/L Normal 98-107 [facility] Comment on above: Performed By: #### C MP, BNP, LIPID ####[facility] Iuzpzendhg1705 [place] [address]Dr. Garima Pulliam CO2 [Moles/Vol] 32.3 mmol/L Critically high 21.0-32.0 [facility] Comment on above: Performed By: #### C MP, BNP, LIPID ####[facility] Xyqarmyird1993 [place] [address]Dr. Garima Pulliam Creatinine [Mass/Vol] 0.70 mg/dL Normal 0.70-1.30 [facility] Comment on above: Performed By: #### C MP, BNP, LIPID ####[facility] Mmzoxuinhr9608 [place] [address]Dr. Chapisrenu Heraclio EGFR-AF CITIZ[place] >60 Normal >=60 [facility] Comment on above: Performed By: #### C MP, BNP, LIPID ####[facility] Bxkfqmpbsh3775 [place] [address]Dr. Garima Pulliam EGFR-NON AF CITIZEN [place] >60 Normal >=60 [facility] Comment on above: Performed By: #### C MP, BNP, LIPID ####[facility] Ozlufkdlcw3426 [place] [address]Dr. Garima Pulliam Globulin (S) [Mass/Vol] 2.9 g/dL Normal [facility] Comment on above: Performed By: #### C MP, BNP, LIPID ####[facility] Hrkjkidexi4624 [place] [address]Dr. Garima Pulliam Glucose [Mass/Vol] 111 mg/dL Critically high 74-106 [facility] Comment on above: Performed By: #### C MP, BNP, LIPID ####[facility] Ybbwzmnrei[address] [place], [place] [address]Dr. Garima Pulliam Potassium [Moles/Vol] 4.2 mmol/L Normal 3.5-5.1 [facility] Comment on above: Performed By: #### C MP, BNP, LIPID ####[facility] Igecrbdmhd750[address] [place], [place] [address]Dr. Garima Pulliam Protein [Mass/Vol] 6.4 g/dL Normal 6.4-8.2 [facility] Comment on above: Performed By: #### C MP, BNP, LIPID ####[facility] Irgkujlbbo[address] [place], [place] [address]Dr. Garima Pulliam Sodium [Moles/Vol] 144 mmol/L Normal 136-145 [facility] Comment on above: Performed By: #### C MP, BNP, LIPID ####[facility] Qxswqafcde723[address] [place], [place] [address]Dr. Garima Pulliam Urea nitrogen [Mass/Vol] 7.0 mg/dL Normal 7.0-18.0 [facility] Comment on above: Performed By: #### C MP, BNP, LIPID ####[facility] Qklhgnzrht044[address] [place], [place] [address]Dr. Garima Pulliam Urea nitrogen/Creatinine [Mass ratio] 10.0 mg/mg Normal [facility] Comment on above: Performed By: #### C MP, BNP, LIPID ####[facility] Ugcnjnaezs8725[address] [place], [place] [address]Dr. Garima Pulliam BNPon 03-22-2023 Natriuretic peptide B (Bld) [Mass/Vol] 103.0 pg/mL Normal <=900.0 [facility] Comment on above: Performed By: #### B HOT MILL SHEARER, BMP ####[facility] Cyffcjnqkj353[address] [place], [place] [address]Dr. Garima Pulliam CBC AUTO DIFFon 03-22-2023 BASO # 0.0 103/ul Normal 0.0-0.1 [facility] Comment on above: Performed By: #### C BC ####[facility] Ogtihbkqbs[address] [place], [place] [address]Dr. Garima Pulliam Basophils/100 WBC (Bld) 0.3 % Normal 0.2-2.0 [facility] Comment on above: Performed By: #### C BC ####[facility] Ofwreegxze037[address] [place], [place] [address]Dr. Garima Pulliam EO # 0.2 103/ul Normal 0.0-0.7 [facility] Comment on above: Performed By: #### C BC ####[facility] Ntmzgcccze70[address] [place], [place] [address]Dr. Garima Pulliam Eosinophils/100 WBC (Bld) 2.2 % Normal 0.9-7.0 [facility] Comment on above: Performed By: #### C BC ####[facility] Fienytnxqr62[address] [place], [place] [address]Dr. Garima Pulliam Erythrocyte distribution width (RBC) [Ratio] 13.2 % Normal 11.0-15.0 [facility] Comment on above: Performed By: #### C BC ####[facility] Bydpgwhhaa5144 [place] [address]Dr. Garima Pulliam Hematocrit (Bld) [Volume fraction] 43.4 % Normal 42.0-54.0 [facility] Comment on above: Performed By: #### C BC ####[facility] Wsxwgemsrk2848 [place] [address]Dr. Garima Heraclio Hemoglobin (Bld) [Mass/Vol] 14.3 g/dL Normal 14.0-18.0 [facility] Comment on above: Performed By: #### C BC ####[facility] Hjxqzszlmx[address] [place], [place] [address]Dr. Garima Heraclio IG # 0.02 10e3/ul Normal 0.00-0.03 [facility] Comment on above: Performed By: #### C BC ####[facility] Caugdbvadq[address] [place], [place] [address]Dr. Garima Pulliam IG % 0.3 % Normal 0.0-0.5 [facility] Comment on above: Performed By: #### C BC ####[facility] Dzdubsymei88350[address] [place], [place] [address]Dr. Garima Heraclio LYMPH # 2.0 103/ul Normal 1.2-3.8 [facility] Comment on above: Performed By: #### C BC ####[facility] Mrmpkiabll[address] [place], [place] [address]Dr. Chapisrenu Pulliam Lymphocytes/100 WBC (Bld) 24.8 % Normal 20.5-60.0 [facility] Comment on above: Performed By: #### C BC ####[facility] Nqphcmcflc[address] [place], [place] [address]Dr. Chapisrenu Pulliam MANUAL DIFF REQ NO Normal [facility] Comment on above: Performed By: #### C BC ####[facility] Oeptwyeqif978[address] [place], [place] [address]Dr. Garima Pulliam MCH (RBC) [Entitic mass] 30.0 pg Normal 25.9-34.0 [facility] Comment on above: Performed By: #### C BC ####[facility] Nsxklleqcs8097 [place] [id number]. Garima Heraclio MCHC (RBC) [Mass/Vol] 32.9 g/dL Normal 29.9-35.2 [facility] Comment on above: Performed By: #### C BC ####[facility] Ijscenvibf6260 [place] [id number]. Garima Pulliam MCV (RBC) [Entitic vol] 91.0 fL Normal 80.0-94.0 [facility] Comment on above: Performed By: #### C BC ####[facility] Yrtcaaumxi[address] [place], [place] [address]Dr. Garima Pulliam MONO # 0.8 103/ul Normal 0.3-0.8 [facility] Comment on above: Performed By: #### C BC ####[facility] Qleoosrola29[address] [place], [place] [address]Dr. Garima Pulliam Monocytes/100 WBC (Bld) 9.7 % Normal 1.7-12.0 [facility] Comment on above: Performed By: #### C BC ####[facility] Qizoqslxoi716[address] [place], [place] [address]Dr. Garima Pulliam NEUT # 4.9 103/ul Normal 1.4-6.5 [facility] Comment on above: Performed By: #### C BC ####[facility] Wvxkvjfjcg068[address] [place], [place] [address]Dr. Garima Pulliam Neutrophils/100 WBC (Bld) 62.7 % Normal 43.0-75.0 [facility] Comment on above: Performed By: #### C BC ####[facility] Zxukmunwmt27[address] [place], [place] [address]Dr. Garima Pulliam Platelet mean volume (Bld) [Entitic vol] 8.8 fL Critically low 9.5-13.5 [facility] Comment on above: Performed By: #### C BC ####[facility] Ergmadkrhs133[address] [place], [place] [address]Dr. Garima Pulliam PLT 198 103/ul Normal 150-450 [facility] Comment on above: Performed By: #### C BC ####[facility] Ecufvkxnvg8859 [place] [id number]. Chapisrenu Pulliam RBC 4.77 106/ul Normal 4.70-6.10 [facility] Comment on above: Performed By: #### C BC ####[facility] Szzvulaozu2987 [place] [id number]. Garima Pulliam WBC 7.9 103/ul Normal 4.0-11.0 [facility] Comment on above: Performed By: #### C BC ####[facility] Dcvohpgzep8303 [place] [address]Dr. Garima Pulliam D-DIMERon 03-22-2023 D-DIMER 0.85 mg/L FEU Critically high <=0.59 [facility] Comment on above: Performed By: #### D DIM ####[facility] Pxjsafubht[address] [place], [place] [address]Dr. Garima Pulliam D-DIMER COMMENTS SEE BELOW Normal [facility] Comment on above: Result Comment: Incr [...] generalized hospitalization. Performed By: #### D DIM ####[facility] Naxhbhocaj7630 [place] [address]Dr. Garima Pulliam PROF CHEM 8 (BAS METB)on Anion gap [Moles/Vol] 6.9 mmol/L Normal [facility] Comment on above: Performed By: #### B HOT MILL SHEARER, BMP ####[facility] Ydfkmohxot7119 [place] [address]Dr. Garima Pulliam Calcium [Mass/Vol] 8.9 mg/dL Normal 8.5-10.1 [facility] Comment on above: Performed By: #### B HOT MILL SHEARER, BMP ####[facility] Dpfjtaphip0739 [place] [id number]. Garima Pulliam Chloride [Moles/Vol] 101 mmol/L Normal 98-107 [facility] Comment on above: Performed By: #### B HOT MILL SHEARER, BMP ####[facility] Grgnrtkqvq7808 [place] [id number]. Garima Pulliam CO2 [Moles/Vol] 30.7 mmol/L Normal 21.0-32.0 [facility] Comment on above: Performed By: #### B HOT MILL SHEARER, BMP ####[facility] Xgomsutego6398 [place] [id number]. Garima Pulliam Creatinine [Mass/Vol] 0.82 mg/dL Normal 0.70-1.30 [facility] Comment on above: Performed By: #### B HOT MILL SHEARER, BMP ####[facility] Adysgrbspx0747 [place] [address]Dr. Garima Pulliam EGFR-AF CITIZ[place] >60 Normal >=60 [facility] Comment on above: Performed By: #### B HOT MILL SHEARER, BMP ####[facility] Svbqumyuog7386 [place] [address]Dr. Garima Pulliam EGFR-NON AF CITIZ[place] OF [place] >60 Normal >=60 [facility] Comment on above: Performed By: #### B HOT MILL SHEARER, BMP ####[facility] Azsxbhzoqx315[address] [place], [place] [address]Dr. Garima Pulliam Glucose [Mass/Vol] 339 mg/dL Critically high 74-106 [facility] Comment on above: Performed By: #### B HOT MILL SHEARER, BMP ####[facility] Oxgnlhjjvt0181 [place] [id number]. Garima Pulliam Potassium [Moles/Vol] 3.6 mmol/L Normal 3.5-5.1 [facility] Comment on above: Performed By: #### B HOT MILL SHEARER, BMP ####[facility] Pdxfbvaalf0310 [place] [address]Dr. Garima Pulliam Sodium [Moles/Vol] 135 mmol/L Critically low 136-145 [facility] Comment on above: Performed By: #### B HOT MILL SHEARER, BMP ####[facility] Fggismulek2762 [place] [id number]. Garima Pulliam Urea nitrogen [Mass/Vol] 11.0 mg/dL Normal 7.0-18.0 [facility] Comment on above: Performed By: #### B HOT MILL SHEARER, BMP ####[facility] Umgaxvsojx3501 [place] [id number]. Garima Pulliam Urea nitrogen/Creatinine [Mass ratio] 13.4 mg/mg Normal [facility] Comment on above: Performed By: #### B HOT MILL SHEARER, BMP ####[facility] Xpbtolwxbv448[address] [place], [place] [address]Dr. Garima Pulliam US VERONICA DOP LEG BILon 023 US VERONICA DOP LEG BENOIT Normal [facility] BNPon 03-18-2023 Natriuretic peptide B (Bld) [Mass/Vol] 226.0 pg/mL Normal <=900.0 [facility] Comment on above: Performed By: #### B HOT MILL SHEARER, BMP ####[facility] Nprvquplgb334[address] [place], [place] [address]Dr. Garima Pulliam CBC AUTO DIFFon 03-18-2023 BASO # 0.0 103/ul Normal 0.0-0.1 [facility] Comment on above: Performed By: #### C BC ####[facility] Oyggnwstwz78[address] [place], [place] [address]Dr. Garima Heraclio Basophils/100 WBC (Bld) 0.2 % Normal 0.2-2.0 [facility] Comment on above: Performed By: #### C BC ####[facility] Lackqldpol303[address] [place], [place] [address]Dr. Garima Pulliam EO # 0.3 103/ul Normal 0.0-0.7 [facility] Comment on above: Performed By: #### C BC ####[facility] Jmyxrcyptk97[address] [place], [place] [address]Dr. Garima Heraclio Eosinophils/100 WBC (Bld) 2.5 % Normal 0.9-7.0 [facility] Comment on above: Performed By: #### C BC ####[facility] Fgbzbdscwg034[address] [place], [place] [address]Dr. Garima Pulliam Erythrocyte distribution width (RBC) [Ratio] 13.2 % Normal 11.0-15.0 [facility] Comment on above: Performed By: #### C BC ####[facility] Ryrdurwygi9076 [place] [address]Dr. Garima Pulliam Hematocrit (Bld) [Volume fraction] 45.8 % Normal 42.0-54.0 [facility] Comment on above: Performed By: #### C BC ####[facility] Gkmxdxdlxk9604 [place] [address]Dr. Garima Pulliam Hemoglobin (Bld) [Mass/Vol] 15.3 g/dL Normal 14.0-18.0 [facility] Comment on above: Performed By: #### C BC ####[facility] Unybjwipqv[address] [place], [place] [address]Dr. Garima Heraclio IG # 0.02 10e3/ul Normal 0.00-0.03 [facility] Comment on above: Performed By: #### C BC ####[facility] Bhsdrroenu[address] [place], [place] [address]Dr. Garima Pulliam IG % 0.2 % Normal 0.0-0.5 [facility] Comment on above: Performed By: #### C BC ####[facility] Vgqijwrgao439[address] [place], [place] [address]Dr. Garima Heraclio LYMPH # 1.8 103/ul Normal 1.2-3.8 [facility] Comment on above: Performed By: #### C BC ####[facility] Aqvkivjycf399[address] [place], [place] [address]Dr. Chapisrenu Pulliam Lymphocytes/100 WBC (Bld) 18.3 % Critically low 20.5-60.0 [facility] Comment on above: Performed By: #### C BC ####[facility] Gluiclprfh885[address] [place], [place] [address]Dr. Chapisrenu Pulliam MANUAL DIFF REQ NO Normal [facility] Comment on above: Performed By: #### C BC ####[facility] Byulqkyxhc184[address] [place], [place] [address]Dr. Garima Pulilam MCH (RBC) [Entitic mass] 30.5 pg Normal 25.9-34.0 [facility] Comment on above: Performed By: #### C BC ####[facility] Cdzxiectic9002 [place] [id number]. Garima Pulliam MCHC (RBC) [Mass/Vol] 33.4 g/dL Normal 29.9-35.2 [facility] Comment on above: Performed By: #### C BC ####[facility] Xozmskgvob9638 [place] [id number]. Garima Pulliam MCV (RBC) [Entitic vol] 91.2 fL Normal 80.0-94.0 [facility] Comment on above: Performed By: #### C BC ####[facility] Ccfdvcjogy029[address] [place], [place] [address]DrAdalberto Garima Heraclio MONO # 0.8 103/ul Normal 0.3-0.8 [facility] Comment on above: Performed By: #### C BC ####[facility] Irariivasi423[address] [place], [place] [address]Dr. Garima Heraclio Monocytes/100 WBC (Bld) 7.6 % Normal 1.7-12.0 [facility] Comment on above: Performed By: #### C BC ####[facility] Ykggzovtka954[address] [place], [place] [address]Dr. Garima Pulliam NEUT # 7.0 103/ul Critically high 1.4-6.5 [facility] Comment on above: Performed By: #### C BC ####[facility] Ooelnjjtpt494[address] [place], [place] [address]DrAdalberto Garima Heraclio Neutrophils/100 WBC (Bld) 71.2 % Normal 43.0-75.0 [facility] Comment on above: Performed By: #### C BC ####[facility] Rwddznufrb[address] [place], [place] [address]Dr. Garima Pulliam Platelet mean volume (Bld) [Entitic vol] 8.9 fL Critically low 9.5-13.5 [facility] Comment on above: Performed By: #### C BC ####[facility] Hblxxoqwwi9896 [place] [id number]. Garima Pulliam PLT 217 103/ul Normal 150-450 [facility] Comment on above: Performed By: #### C BC ####[facility] Yufysqzzxg8[address] [place], [place] [address]Dr. Garima Pulliam RBC 5.02 106/ul Normal 4.70-6.10 [facility] Comment on above: Performed By: #### C BC ####[facility] Hgzoyfarya[address] [place], [place] [address]Dr. Garima Pulliam WBC 9.8 103/ul Normal 4.0-11.0 [facility] Comment on above: Performed By: #### C BC ####[facility] Rchijotgtg501[address] [place], [place] [address]Dr. Garima Heraclio CRPon 03-18-2023 CRP 0.1 mg/dL Normal <=1.0 [facility] Comment on above: Performed By: #### C RP ####[facility] Uxppsittdz7[address] [place], [place] [address]Dr. Garima Heraclio PROF CHEM 8 (BAS METB)on Anion gap [Moles/Vol] 10.4 mmol/L Normal [facility] Comment on above: Performed By: #### B HOT MILL SHEARER, BMP ####[facility] Qvwbfzyenk18[address] [place], [place] [address]Dr. Garima Heraclio Calcium [Mass/Vol] 8.8 mg/dL Normal 8.5-10.1 [facility] Comment on above: Performed By: #### B HOT MILL SHEARER, BMP ####[facility] Bsgwigveog7767 [place] [address]Dr. Garima Pulliam Chloride [Moles/Vol] 97 mmol/L Critically low 98-107 [facility] Comment on above: Performed By: #### B HOT MILL SHEARER, BMP ####[facility] Lwalrbbgel8284 [place] [address]Dr. Garima Pulliam CO2 [Moles/Vol] 31.2 mmol/L Normal 21.0-32.0 [facility] Comment on above: Performed By: #### B HOT MILL SHEARER, BMP ####[facility] Ckuuteyoxn5713 [place] [id number]. Garima Pulliam Creatinine [Mass/Vol] 0.91 mg/dL Normal 0.70-1.30 [facility] Comment on above: Performed By: #### B HOT MILL SHEARER, BMP ####[facility] Fifekklgjh0024 [place] [id number]. Garima Pulliam EGFR-AF CITIZ[place] >60 Normal >=60 [facility] Comment on above: Performed By: #### B HOT MILL SHEARER, BMP ####[facility] Hwghoplqcv4594 [place] [id number]. Garima Pulliam EGFR-NON AF CITIZEN OF [place] >60 Normal >=60 [facility] Comment on above: Performed By: #### B HOT MILL SHEARER, BMP ####[facility] Cxseddosnb[address] [place], [place] [address]Dr. Garima Pulliam Glucose [Mass/Vol] 315 mg/dL Critically high 74-106 [facility] Comment on above: Performed By: #### B HOT MILL SHEARER, BMP ####[facility] Ognfjujtxh[address] [place], [place] [address]Dr. Garima Pulliam Potassium [Moles/Vol] 3.6 mmol/L Normal 3.5-5.1 [facility] Comment on above: Performed By: #### B HOT MILL SHEARER, BMP ####[facility] Pwdiswgale[address] [place], [place] [address]Dr. Graima Pulliam Sodium [Moles/Vol] 135 mmol/L Critically low 136-145 [facility] Comment on above: Performed By: #### B HOT MILL SHEARER, BMP ####[facility] Vilhyinhbr[address] [place], [place] [address]Dr. Garima Pulliam Urea nitrogen [Mass/Vol] 7.0 mg/dL Normal 7.0-18.0 [facility] Comment on above: Performed By: #### B HOT MILL SHEARER, BMP ####[facility] Dmpqbyynaj6[address] [place], [place] [address]Dr. Garima Pulliam Urea nitrogen/Creatinine [Mass ratio] 7.7 mg/mg Normal [facility] Comment on above: Performed By: #### B HOT MILL SHEARER, BMP ####[facility] Htiazetimj[address] [place], [place] [address]Dr. Garima Pulliam SED RATE WESTERGRENon 2022 SED RATE 8 mm/hr Normal <=20 [facility] Comment on above: Performed By: #### S EDR ####[facility] Mdctdcrvdi[address] [place], [place] [address]Dr. Garima Pulliam BNPon 03-16-2023 Natriuretic peptide B (Bld) [Mass/Vol] 241.0 pg/mL Normal <=900.0 [facility] Comment on above: Performed By: #### B HOT MILL SHEARER, BMP, HSTROPN ####[facility] Xfbwmrhiwz054[address] [place], [place] [address]Dr. Garima Heraclio CBC AUTO DIFFon 03-16-2023 BASO # 0.0 103/ul Normal 0.0-0.1 [facility] Comment on above: Performed By: #### C BC ####[facility] Yhweaitnfy[address] [place], [place] [address]Dr. Garima Heraclio Basophils/100 WBC (Bld) 0.2 % Normal 0.2-2.0 [facility] Comment on above: Performed By: #### C BC ####[facility] [address] [place], [place] [address]Dr. Chapisrenu Heraclio EO # 0.2 103/ul Normal 0.0-0.7 [facility] Comment on above: Performed By: #### C BC ####[facility] Oxeszoqgjm365[address] [place], [place] [address]Dr. Garima Heraclio Eosinophils/100 WBC (Bld) 2.7 % Normal 0.9-7.0 [facility] Comment on above: Performed By: #### C BC ####[facility] Jmrohoqpwm430[address] [place], [place] [address]Dr. Garima Heraclio Erythrocyte distribution width (RBC) [Ratio] 13.1 % Normal 11.0-15.0 [facility] Comment on above: Performed By: #### C BC ####[facility] Laeheujniz[address] [place], [place] [address]Dr. Garima Heraclio Hematocrit (Bld) [Volume fraction] 41.8 % Critically low 42.0-54.0 [facility] Comment on above: Performed By: #### C BC ####[facility] Vivufchdtm040[address] [place] [address]DrAdalberto Garima Pulliam Hemoglobin (Bld) [Mass/Vol] 14.0 g/dL Normal 14.0-18.0 [facility] Comment on above: Performed By: #### C BC ####[facility] Unjiruffkz9854 [place] [address]DrAdalberto Pulliam IG # 0.03 10e3/ul Normal 0.00-0.03 [facility] Comment on above: Performed By: #### C BC ####[facility] Pnfkhsnumq[address] [place], [place] [address]DrAdalberto Chapisrenu Pulliam IG % 0.3 % Normal 0.0-0.5 [facility] Comment on above: Performed By: #### C BC ####[facility] Zckishmmhb466[address] [place], [place] [address]DrAdalberto Chapisrenu Pulliam LYMPH # 2.1 103/ul Normal 1.2-3.8 [facility] Comment on above: Performed By: #### C BC ####[facility] Hhippqiqfc649[address] [place], [place] [address]DrAdalberto Chapisrenu Pulliam Lymphocytes/100 WBC (Bld) 24.2 % Normal 20.5-60.0 [facility] Comment on above: Performed By: #### C BC ####[facility] Isifcbvoyd[address] [place], [place] [address]DrAdalberto Pulliam MANUAL DIFF REQ NO Normal [facility] Comment on above: Performed By: #### C BC ####[facility] Awshvvvkim534[address] [place], [place] [address]DrAdalberto Pulliam MCH (RBC) [Entitic mass] 30.2 pg Normal 25.9-34.0 [facility] Comment on above: Performed By: #### C BC ####[facility] Lljyxlpoyp463[address] [place], [place] [address]DrAdalberto Pulliam MCHC (RBC) [Mass/Vol] 33.5 g/dL Normal 29.9-35.2 [facility] Comment on above: Performed By: #### C BC ####[facility] Hntaxzcuok[address] [place], [place] [address]DrAdalberto Pulliam MCV (RBC) [Entitic vol] 90.1 fL Normal 80.0-94.0 [facility] Comment on above: Performed By: #### C BC ####[facility] Yaxphekuew9[address] [place], [place] [address]DrAdalberto Pulliam MONO # 0.6 103/ul Normal 0.3-0.8 [facility] Comment on above: Performed By: #### C BC ####[facility] Nbktklxowy090[address] [place], [place] [address]DrAdalberto Pulliam Monocytes/100 WBC (Bld) 7.4 % Normal 1.7-12.0 [facility] Comment on above: Performed By: #### C BC ####[facility] Lkeecrkzhz3613[address] [place], [place] [address]DrAdalberto Pulliam NEUT # 5.6 103/ul Normal 1.4-6.5 [facility] Comment on above: Performed By: #### C BC ####[facility] Inrykgeqaa294[address] [place], [place] [address]DrAdalberto Pulliam Neutrophils/100 WBC (Bld) 65.2 % Normal 43.0-75.0 [facility] Comment on above: Performed By: #### C BC ####[facility] Gfjyasbbrk9[address] [place], [place] [address]DrAdalberto Pulliam Platelet mean volume (Bld) [Entitic vol] 8.7 fL Critically low 9.5-13.5 [facility] Comment on above: Performed By: #### C BC ####[facility] Xzpbwqqcnj[address] [place], [place] [address]DrAdalberto Pulliam PLT 195 103/ul Normal 150-450 [facility] Comment on above: Performed By: #### C BC ####[facility] Jvwestezjl[address] [place], [place] [address]DrAdalberto Pulliam RBC 4.64 106/ul Critically low 4.70-6.10 [facility] Comment on above: Performed By: #### C BC ####[facility] Xigyezftbj266[address] [place], [place] [address]Dr. Chapisrenu Pulliam WBC 8.6 103/ul Normal 4.0-11.0 [facility] Comment on above: Performed By: #### C BC ####[facility] Bqsxpggruw117[address] [place], [place] [address]Dr. Garima Pulliam PROF CHEM 8 (BAS METB)on Anion gap [Moles/Vol] 6.7 mmol/L Normal [facility] Comment on above: Performed By: #### B HOT MILL SHEARER, BMP, HSTROPN ####[facility] Pyuxtbyggf555[address] [place], [place] [address]Dr. Garima Pulliam Calcium [Mass/Vol] 8.8 mg/dL Normal 8.5-10.1 [facility] Comment on above: Performed By: #### B HOT MILL SHEARER, BMP, HSTROPN ####[facility] Sffotfmjek[address] [place], [place] [address]Dr. Garima Pulliam Chloride [Moles/Vol] 106 mmol/L Normal 98-107 [facility] Comment on above: Performed By: #### B HOT MILL SHEARER, BMP, HSTROPN ####[facility] Qbsrfjcmbt34[address] [place], [place] [address]Dr. Garima Pulliam CO2 [Moles/Vol] 31.4 mmol/L Normal 21.0-32.0 [facility] Comment on above: Performed By: #### B HOT MILL SHEARER, BMP, HSTROPN ####[facility] Slvaihfist639[address] [place], [place] [address]Dr. Garima Pulliam Creatinine [Mass/Vol] 0.75 mg/dL Normal 0.70-1.30 [facility] Comment on above: Performed By: #### B HOT MILL SHEARER, BMP, HSTROPN ####[facility] Dbczpvtpyo9[address] [place], [place] [address]Dr. Garima Pulliam EGFR-AF CITIZEN [place] >60 Normal >=60 [facility] Comment on above: Performed By: #### B HOT MILL SHEARER, BMP, HSTROPN ####[facility] Leemmhcpyu77[address] [place] [address]Dr. Garima Pulliam EGFR-NON AF CITIZEN OF [place] >60 Normal >=60 [facility] Comment on above: Performed By: #### B HOT MILL SHEARER, BMP, HSTROPN ####[facility] Lkzpkxjyym8337 [place] [address]Dr. Garima Pulliam Glucose [Mass/Vol] 161 mg/dL Critically high 74-106 [facility] Comment on above: Performed By: #### B HOT MILL SHEARER, BMP, HSTROPN ####[facility] Udujtybdnr5930 [place] [address]Dr. Garima Pulliam Potassium [Moles/Vol] 4.1 mmol/L Normal 3.5-5.1 [facility] Comment on above: Performed By: #### B HOT MILL SHEARER, BMP, HSTROPN ####[facility] Kdnxqezccc4168 [place] [address]Dr. Garima Pulliam Sodium [Moles/Vol] 140 mmol/L Normal 136-145 [facility] Comment on above: Performed By: #### B HOT MILL SHEARER, BMP, HSTROPN ####[facility] Svjwjbtoqn5224 [place] [address]Dr. Garima Pulliam Urea nitrogen [Mass/Vol] 7.0 mg/dL Normal 7.0-18.0 [facility] Comment on above: Performed By: #### B HOT MILL SHEARER, BMP, HSTROPN ####[facility] Pdhumyapry2370 [place] [address]Dr. Garima Pulliam Urea nitrogen/Creatinine [Mass ratio] 9.3 mg/mg Normal [facility] Comment on above: Performed By: #### B HOT MILL SHEARER, BMP, HSTROPN ####[facility] Vddhlbyryw[address] [place], [place] [address]Dr. Garima Pulliam TROPONIN, HIGH SENSITIVITYon 03-16-2023 HSTROP 9.7 pg/mL Normal 4.0-76.1 [facility] Comment on above: Result Comment: CUT- OFF POINTS HAVE BEEN ESTABLISHED BASED ON THE FOURTH UNIVERSAL DEFINITIONS OF MYOCARDIALINFARCTION. THE UPPER REFERENCE LIMIT (URL) OF TROPONIN, DEFINED THE 99TH PERCENTILE OFcTnI DISTRIBUTION IN A REFERENCE POPULATION, HAS BEEN CONFIRMED THE DECISION THRESHOLDFOR PA DIAGNOSIS. Performed By: #### B HOT MILL SHEARER, BMP, HSTROPN ####[facility] Wmmfhuiufy15[address] [place] [address]Dr. Garima Pulliam XR CHEST 1 Von 03-16-2023 XR CHEST 1 V Normal [facility] BNPon 03-06-2023 Natriuretic peptide B (Bld) [Mass/Vol] 111.0 pg/mL Normal <=900.0 [facility] Comment on above: Performed By: #### C MP, BNP, CK ####[facility] Lgbspakzkm3419[address] [place], [place] [address]Dr. Garima Pulliam CBC AUTO DIFFon 03-06-2023 BASO # 0.0 103/ul Normal 0.0-0.1 [facility] Comment on above: Performed By: #### C BC ####[facility] Mxmyzkcsss1717[address] [place], [place] [address]Dr. Garima Heraclio Basophils/100 WBC (Bld) 0.2 % Normal 0.2-2.0 [facility] Comment on above: Performed By: #### C BC ####[facility] Syotrtqedq886[address] [place], [place] [address]Dr. Garima Pulliam EO # 0.3 103/ul Normal 0.0-0.7 [facility] Comment on above: Performed By: #### C BC ####[facility] Lsfqloqbvk10[address] [place], [place] [address]Dr. Garima Heraclio Eosinophils/100 WBC (Bld) 3.5 % Normal 0.9-7.0 [facility] Comment on above: Performed By: #### C BC ####[facility] Fscszkphpy[address] [place], [place] [address]Dr. Garima Pulliam Erythrocyte distribution width (RBC) [Ratio] 13.3 % Normal 11.0-15.0 [facility] Comment on above: Performed By: #### C BC ####[facility] Vudgpnucgh0914[address] [place], [place] [address]Dr. Garima Pulliam Hematocrit (Bld) [Volume fraction] 43.7 % Normal 42.0-54.0 [facility] Comment on above: Performed By: #### C BC ####[facility] Xbamkgtuqw7351 [place] [address]Dr. Garima Pulliam Hemoglobin (Bld) [Mass/Vol] 14.7 g/dL Normal 14.0-18.0 [facility] Comment on above: Performed By: #### C BC ####[facility] Kxwdfiyvwi6[address] [place] [address]Dr. Garima Pulliam IG # 0.03 10e3/ul Normal 0.00-0.03 [facility] Comment on above: Performed By: #### C BC ####[facility] Wxzvzmuioz0309 [place] [address]Dr. Garima Pulliam IG % 0.4 % Normal 0.0-0.5 [facility] Comment on above: Performed By: #### C BC ####[facility] Wfenmkcybs1827[address] [place], [place] [address]Dr. Garima Pulliam LYMPH # 2.0 103/ul Normal 1.2-3.8 [facility] Comment on above: Performed By: #### C BC ####[facility] Kzcpapufps5025[address] [place], [place] [address]Dr. Garima Pulliam Lymphocytes/100 WBC (Bld) 23.7 % Normal 20.5-60.0 [facility] Comment on above: Performed By: #### C BC ####[facility] Sebkrtjecy432[address] [place], [place] [address]Dr. Garima Pulliam MANUAL DIFF REQ NO Normal [facility] Comment on above: Performed By: #### C BC ####[facility] Prpwhtpotq1229 [place] [address]Dr. Garima Pulliam MCH (RBC) [Entitic mass] 30.1 pg Normal 25.9-34.0 [facility] Comment on above: Performed By: #### C BC ####[facility] Gowiyvagjh664[address] [place], [place] [address]Dr. Garima Pulliam MCHC (RBC) [Mass/Vol] 33.6 g/dL Normal 29.9-35.2 [facility] Comment on above: Performed By: #### C BC ####[facility] Jpczehakhx8030 [place] [address]DrAdalberto Pulliam MCV (RBC) [Entitic vol] 89.4 fL Normal 80.0-94.0 [facility] Comment on above: Performed By: #### C BC ####[facility] Fbffvxtsaa85[address] [place], [place] [address]DrAdalberto Pulliam MONO # 0.8 103/ul Normal 0.3-0.8 [facility] Comment on above: Performed By: #### C BC ####[facility] Eqdtyggjfy9816[address] [place], [place] [address]DrAdalberto Pulliam Monocytes/100 WBC (Bld) 9.0 % Normal 1.7-12.0 [facility] Comment on above: Performed By: #### C BC ####[facility] Akceyhhytc[address] [place], [place] [address]Dr. Garima Pulliam NEUT # 5.4 103/ul Normal 1.4-6.5 [facility] Comment on above: Performed By: #### C BC ####[facility] Vlxqvttxck72[address] [place], [place] [address]DrAdalberto Pulliam Neutrophils/100 WBC (Bld) 63.2 % Normal 43.0-75.0 [facility] Comment on above: Performed By: #### C BC ####[facility] Smrystgkjf360[address] [place], [place] [address]DrAdalberto Pulliam Platelet mean volume (Bld) [Entitic vol] 9.0 fL Critically low 9.5-13.5 [facility] Comment on above: Performed By: #### C BC ####[facility] Sdahycgluv[address] [place], [place] [address]DrAdalberto Pulliam PLT 218 103/ul Normal 150-450 [facility] Comment on above: Performed By: #### C BC ####[facility] Nyivlqiipc427[address] [place], [place] [address]DrAdalberto Pulliam RBC 4.89 106/ul Normal 4.70-6.10 [facility] Comment on above: Performed By: #### C BC ####[facility] Inqooolvjo[address]01 [place] [address]Dr. Garima Pulliam WBC 8.5 103/ul Normal 4.0-11.0 [facility] Comment on above: Performed By: #### C BC ####[facility] Rlhtaoqcxt0778 [place] [address]Dr. Garima Heraclio CPKon 03-06-2023 CK [Catalytic activity/Vol] 191 U/L Normal 39-308 [facility] Comment on above: Performed By: #### C MP, BNP, CK ####[facility] Mphxfxzdbf608[address] [place], [place] [address]Dr. Garima Pulliam PROF 14(COMP METB)on 023 Albumin [Mass/Vol] 3.6 g/dL Normal 3.4-5.0 [facility] Comment on above: Performed By: #### C MP, BNP, CK ####[facility] Umicwrtzlv8333 [place] [address]Dr. Garima Pulliam Albumin/Globulin [Mass ratio] 1.2 {ratio} Normal [facility] Comment on above: Performed By: #### C MP, BNP, CK ####[facility] Gnzcrjjqqp5269 [place] [address]Dr. Garima Pulliam ALP [Catalytic activity/Vol] 91 U/L Normal 46-116 [facility] Comment on above: Performed By: #### C MP, BNP, CK ####[facility] Xpzcmvuuus0535 [place] [address]Dr. Garima Pulliam ALT [Catalytic activity/Vol] 33 U/L Normal 16-63 [facility] Comment on above: Performed By: #### C MP, BNP, CK ####[facility] Vpaidsckyw2554 [place] [address]Dr. Garima Pulliam Anion gap [Moles/Vol] 10.3 mmol/L Normal [facility] Comment on above: Performed By: #### C MP, BNP, CK ####[facility] Pepzovosay7959 [place] [address]Dr. Garima Pulliam AST [Catalytic activity/Vol] 17 U/L Normal 15-37 [facility] Comment on above: Performed By: #### C MP, BNP, CK ####[facility] Ghzgqygofo1753 [place] [address]Dr. Garima Pulliam Bilirubin [Mass/Vol] 0.4 mg/dL Normal 0.2-1.0 [facility] Comment on above: Performed By: #### C MP, BNP, CK ####[facility] Bwjosqnvat9583 [place] [address]Dr. Garima Pulliam Calcium [Mass/Vol] 9.1 mg/dL Normal 8.5-10.1 [facility] Comment on above: Performed By: #### C MP, BNP, CK ####[facility] Etoydrxcjt[address] [place], [place] [address]Dr. Garima Pulliam Chloride [Moles/Vol] 102 mmol/L Normal 98-107 [facility] Comment on above: Performed By: #### C MP, BNP, CK ####[facility] Bhiryqurpk6485 [place] [address]Dr. Garima Pulliam CO2 [Moles/Vol] 29.7 mmol/L Normal 21.0-32.0 [facility] Comment on above: Performed By: #### C MP, BNP, CK ####[facility] Ooghnowchf[address]50 [place] [address]Dr. Garima Pulliam Creatinine [Mass/Vol] 0.79 mg/dL Normal 0.70-1.30 [facility] Comment on above: Performed By: #### C MP, BNP, CK ####[facility] Uaxzkhutev0499 [place] [address]Dr. Garima Pulliam EGFR-AF [place]IZ[place] >60 Normal >=60 [facility] Comment on above: Performed By: #### C MP, BNP, CK ####[facility] Qfsgevuxrc9192 [place] [address]Dr. Garima Pulliam EGFR-NON AF CITIZEN OF [place] >60 Normal >=60 [facility] Comment on above: Performed By: #### C MP, BNP, CK ####[facility] Frimwmndri5418 [place] [address]Dr. Garima Pulliam Globulin (S) [Mass/Vol] 3.0 g/dL Normal [facility] Comment on above: Performed By: #### C MP, BNP, CK ####[facility] Nyfzhhwudl6584 [place] [address]Dr. Garima Pulliam Glucose [Mass/Vol] 202 mg/dL Critically high 74-106 [facility] Comment on above: Performed By: #### C MP, BNP, CK ####[facility] Uzwsgzylds[address] [place], [place] [address]Dr. Garima Pulliam Potassium [Moles/Vol] 4.0 mmol/L Normal 3.5-5.1 [facility] Comment on above: Performed By: #### C MP, BNP, CK ####[facility] Jlrvgvqinu01[address] [place], [place] [address]Dr. Garima Pulliam Protein [Mass/Vol] 6.6 g/dL Normal 6.4-8.2 [facility] Comment on above: Performed By: #### C MP, BNP, CK ####[facility] Mvrtfmsgsc[address] [place], [place] [address]Dr. Garima Pulliam Sodium [Moles/Vol] 138 mmol/L Normal 136-145 [facility] Comment on above: Performed By: #### C MP, BNP, CK ####[facility] Mbjhdzhkey665[address] [place], [place] [address]Dr. Garima Pulliam Urea nitrogen [Mass/Vol] 10.0 mg/dL Normal 7.0-18.0 [facility] Comment on above: Performed By: #### C MP, BNP, CK ####[facility] Mniljbrfzc39[address] [place], [place] [address]Dr. Garima Pulliam Urea nitrogen/Creatinine [Mass ratio] 12.7 mg/mg Normal [facility] Comment on above: Performed By: #### C MP, BNP, CK ####[facility] Ibflxnwgdm[address] [place], [place] [address]DrAdalberto Pulliam US VERONICA DOP LEG BILon 023 US VERONICA DOP LEG BENOIT Normal [facility] CBC AUTO DIFFon 01-13-2023 BASO # 0.0 103/ul Normal 0.0-0.1 [facility] Comment on above: Performed By: #### C BC ####[facility] Lxuickryde7405 [place] [address]DrAdalberto Pulliam Basophils/100 WBC (Bld) 0.0 % Critically low 0.2-2.0 [facility] Comment on above: Performed By: #### C BC ####[facility] Rboqhnvchk8276 [place] [address]DrAdalberto Pulliam EO # 0.0 103/ul Normal 0.0-0.7 [facility] Comment on above: Performed By: #### C BC ####[facility] Vfrokpfwsi1923 [place] [address]DrAdalberto Pulliam Eosinophils/100 WBC (Bld) 0.0 % Critically low 0.9-7.0 [facility] Comment on above: Performed By: #### C BC ####[facility] Gmmvixyrdf4560 [place] [address]DrAdalberto Pulliam Erythrocyte distribution width (RBC) [Ratio] 13.2 % Normal 11.0-15.0 [facility] Comment on above: Performed By: #### C BC ####[facility] Eszxsbbgcb7998 [place] [address]DrAdalberto Pulliam Hematocrit (Bld) [Volume fraction] 46.7 % Normal 42.0-54.0 [facility] Comment on above: Performed By: #### C BC ####[facility] Ahafouwpkt3640 [place] [address]DrAdalberto Pullima Hemoglobin (Bld) [Mass/Vol] 15.6 g/dL Normal 14.0-18.0 [facility] Comment on above: Performed By: #### C BC ####[facility] Rownhjauzv1989 [place] [address]DrAdalberto Pulliam IG # 0.01 10e3/ul Normal 0.00-0.03 [facility] Comment on above: Performed By: #### C BC ####[facility] Jpvawhfzcc4712 [place] [address]DrAdalberto Chapisrenu Pulliam IG % 0.2 % Normal 0.0-0.5 [facility] Comment on above: Performed By: #### C BC ####[facility] Wbevexzgaw7246 [place] [id number] Chapisrenu Pulliam LYMPH # 0.8 103/ul Critically low 1.2-3.8 [facility] Comment on above: Performed By: #### C BC ####[facility] Hqsuzicrfo6731 [place] [address]DrAdalberto Pulliam Lymphocytes/100 WBC (Bld) 12.7 % Critically low 20.5-60.0 [facility] Comment on above: Performed By: #### C BC ####[facility] Twtixqkiry5154 [place] [address]DrAdalberto Pulliam MANUAL DIFF REQ NO Normal [facility] Comment on above: Performed By: #### C BC ####[facility] Fougduyfqu0981 [place] [id number] Garima Heraclio MCH (RBC) [Entitic mass] 30.2 pg Normal 25.9-34.0 [facility] Comment on above: Performed By: #### C BC ####[facility] Fiaprerrko3065 [place] [address]DrAdalberto Chapisrenu Pulliam MCHC (RBC) [Mass/Vol] 33.4 g/dL Normal 29.9-35.2 [facility] Comment on above: Performed By: #### C BC ####[facility] Wfmjypseah6055 [place] [id number] Pulliam MCV (RBC) [Entitic vol] 90.3 fL Normal 80.0-94.0 [facility] Comment on above: Performed By: #### C BC ####[facility] Oktlvslrle1882 [place] [id number] Pulliam MONO # 0.1 103/ul Critically low 0.3-0.8 [facility] Comment on above: Performed By: #### C BC ####[facility] Xzicoidqyj5522 [place] [address]Dr. Garima Pulliam Monocytes/100 WBC (Bld) 0.9 % Critically low 1.7-12.0 [facility] Comment on above: Performed By: #### C BC ####[facility] Ryyvklrrgp1779 [place] [address]Dr. Garima Pulliam NEUT # 5.6 103/ul Normal 1.4-6.5 [facility] Comment on above: Performed By: #### C BC ####[facility] Boibedfhls8557 [place] [address]Dr. Garima Pulliam Neutrophils/100 WBC (Bld) 86.2 % Critically high 43.0-75.0 [facility] Comment on above: Performed By: #### C BC ####[facility] Xzdzqmlvsb8656 [place] [address]Dr. Garima Pulliam Platelet mean volume (Bld) [Entitic vol] 9.1 fL Critically low 9.5-13.5 [facility] Comment on above: Performed By: #### C BC ####[facility] Icnlbvftas[address] [place], [place] [address]Dr. Garima Pulliam PLT 169 103/ul Normal 150-450 [facility] Comment on above: Performed By: #### C BC ####[facility] Nplommsnul0238 [place] [address]Dr. Garima Pulliam RBC 5.17 106/ul Normal 4.70-6.10 [facility] Comment on above: Performed By: #### C BC ####[facility] Dsicptzqis0623 [place] [id number]. Garima Pulliam WBC 6.5 103/ul Normal 4.0-11.0 [facility] Comment on above: Performed By: #### C BC ####[facility] Gsixvvodvc[address] [place], [place] [address]Dr. Garima Pulliam D-DIMERon 01-13-2023 D-DIMER 0.41 mg/L FEU Normal <=0.59 [facility] Comment on above: Performed By: #### D DIM ####[facility] Jisgqoafvg8537 [place] [address]Dr. Garima Pulliam D-DIMER COMMENTS SEE BELOW Normal [facility] Comment on above: Result Comment: Incr eases [...] generalized hospitalization. Performed By: #### D DIM ####[facility] Ctfhgqgoap4170 [place] [address]Dr. Garima Pulliam PROF 14(COMP METB)on 023 Albumin [Mass/Vol] 3.4 g/dL Normal 3.4-5.0 [facility] Comment on above: Performed By: #### C MP ####[facility] Cijfgwefzp6754 [place] [address]Dr. Garima Pulliam Albumin/Globulin [Mass ratio] 1.3 {ratio} Normal [facility] Comment on above: Performed By: #### C MP ####[facility] Wwrqeckqtj2025 [place] [address]Dr. Garima Pulliam ALP [Catalytic activity/Vol] 83 U/L Normal 46-116 [facility] Comment on above: Performed By: #### C MP ####[facility] Fmmxstpdsa1279 [place] [address]Dr. Garima Pulliam ALT [Catalytic activity/Vol] 25 U/L Normal 16-63 [facility] Comment on above: Performed By: #### C MP ####[facility] Orheszxsrs6986 [place] [address]Dr. Garima Pullaim Anion gap [Moles/Vol] 14.5 mmol/L Normal [facility] Comment on above: Performed By: #### C MP ####[facility] Rwsahttyce[address] [place] [id number]. Garima Pulliam AST [Catalytic activity/Vol] 19 U/L Normal 15-37 [facility] Comment on above: Performed By: #### C MP ####[facility] Ugdjhcjjxs4463 [place] [id number]. Garima Pulliam Bilirubin [Mass/Vol] 0.4 mg/dL Normal 0.2-1.0 [facility] Comment on above: Performed By: #### C MP ####[facility] Rhrdtfxlcf2101 [place] [id number]. Garima Pulliam Calcium [Mass/Vol] 8.7 mg/dL Normal 8.5-10.1 [facility] Comment on above: Performed By: #### C MP ####[facility] Whmqtazdvd2100 [place] [phone]. Garima Pulliam Chloride [Moles/Vol] 104 mmol/L Normal 98-107 [facility] Comment on above: Performed By: #### C MP ####[facility] Bffdiflkly5765 [place] [phone]. Garima Pulliam CO2 [Moles/Vol] 24.5 mmol/L Normal 21.0-32.0 The [facility] Comment on above: Performed By: #### C MP ####[facility] Jtficyfpsp0619 [place] [phone]. Garima Pulliam Creatinine [Mass/Vol] 0.70 mg/dL Normal 0.70-1.30 [facility] Comment on above: Performed By: #### C MP ####[facility] Rvyaagrtqw6413 [place] [id number]. Garima Pulliam EGFR-AF CITIZEN [place] >60 Normal >=60 The [facility] Comment on above: Performed By: #### C MP ####[facility] Rdvghtswqw1381 [place] [phone]. Garima Pulliam EGFR-NON AF CITIZEN OF [place] >60 Normal >=60 [facility] Comment on above: Performed By: #### C MP ####[facility] Bkbklooypp[address] [place], [place] [id number]. Garima Pulliam Globulin (S) [Mass/Vol] 2.6 g/dL Normal [facility] Comment on above: Performed By: #### C MP ####[facility] Eqmezyqpqv218[address] [place], [place] [address]Dr. Garima Pulliam Glucose [Mass/Vol] 196 mg/dL Critically high 74-106 [facility] Comment on above: Performed By: #### C MP ####[facility] Rjqurtewly365[address] [place], [place] [address]Dr. Garima Pulliam Potassium [Moles/Vol] 4.0 mmol/L Normal 3.5-5.1 [facility] Comment on above: Performed By: #### C MP ####[facility] Nyhawwniou[address] [place], [place] [address]Dr. Garima Pulliam Protein [Mass/Vol] 6.0 g/dL Critically low 6.4-8.2 [facility] Comment on above: Performed By: #### C MP ####[facility] Dfvaduwvis024[address] [place], [place] [address]Dr. Garima Pulliam Sodium [Moles/Vol] 139 mmol/L Normal 136-145 [facility] Comment on above: Performed By: #### C MP ####[facility] Ktxfhsedcv9[address] [place], [place] [address]Dr. Garima Pulliam Urea nitrogen [Mass/Vol] 7.0 mg/dL Normal 7.0-18.0 [facility] Comment on above: Performed By: #### C MP ####[facility] Sxlbxslwrg113[address] [place], [place] [address]Dr. Garima Pulliam Urea nitrogen/Creatinine [Mass ratio] 10.0 mg/mg Normal [facility] Comment on above: Performed By: #### C MP ####[facility] Eaeyddhpwc[address] [place], [place] [address]Dr. Garima Pulliam BNPon 01-12-2023 Natriuretic peptide B (Bld) [Mass/Vol] 141.0 pg/mL Normal <=900.0 [facility] Comment on above: Performed By: #### C MP, BNP, HSTROPN ####[facility] Fngvnjnbxx2686 [place] [phone]. Garima Heraclio CBC AUTO DIFFon 01-12-2023 BASO # 0.0 103/ul Normal 0.0-0.1 [facility] Comment on above: Performed By: #### C BC ####[facility] Ezjgawubqg9[address] [place], [place] [address]Dr. Garima Pulliam Basophils/100 WBC (Bld) 0.2 % Normal 0.2-2.0 [facility] Comment on above: Performed By: #### C BC ####[facility] Wodacppzmi4[address] [place], [place] [address]Dr. Garima Pulliam EO # 0.2 103/ul Normal 0.0-0.7 [facility] Comment on above: Performed By: #### C BC ####[facility] Zblwretlcg41[address] [place], [place] [address]Dr. Garima Pulliam Eosinophils/100 WBC (Bld) 2.7 % Normal 0.9-7.0 [facility] Comment on above: Performed By: #### C BC ####[facility] Oqkzwdqzzn624[address] [place], [place] [address]Dr. Chapisrenu Pulliam Erythrocyte distribution width (RBC) [Ratio] 13.3 % Normal 11.0-15.0 [facility] Comment on above: Performed By: #### C BC ####[facility] Pyklkyktii804[address] [place], [place] [address]Dr. Garima Pulliam Hematocrit (Bld) [Volume fraction] 42.3 % Normal 42.0-54.0 [facility] Comment on above: Performed By: #### C BC ####[facility] Ashxcpnsxw750[address] [place], [place] [address]Dr. Chapisrenu Pulliam Hemoglobin (Bld) [Mass/Vol] 14.3 g/dL Normal 14.0-18.0 [facility] Comment on above: Performed By: #### C BC ####[facility] Ulnczplmqh164[address] [place], [place] [address]Dr. Garima Pulliam IG # 0.02 10e3/ul Normal 0.00-0.03 [facility] Comment on above: Performed By: #### C BC ####[facility] Dpqmnzzvvb4447 [place] [phone]. Chapisrenu Pulliam IG % 0.2 % Normal 0.0-0.5 [facility] Comment on above: Performed By: #### C BC ####[facility] Qekbsujcwo8025 [place] [phone]. Garima Pulliam LYMPH # 2.6 103/ul Normal 1.2-3.8 [facility] Comment on above: Performed By: #### C BC ####[facility] Gulycyhjpm15[address] [place] [address]Dr. Chapisrenu Pulliam Lymphocytes/100 WBC (Bld) 29.6 % Normal 20.5-60.0 [facility] Comment on above: Performed By: #### C BC ####[facility] Cwlzihzxmc[address] [place] [address]Dr. Garima Pulliam MANUAL DIFF REQ NO Normal [facility] Comment on above: Performed By: #### C BC ####[facility] Zrijmzdyfa3706 [place] [address]Dr. Garima Pulliam MCH (RBC) [Entitic mass] 30.2 pg Normal 25.9-34.0 [facility] Comment on above: Performed By: #### C BC ####[facility] Mtkyglxgil5434 [place] [address]Dr. Garima Pulliam MCHC (RBC) [Mass/Vol] 33.8 g/dL Normal 29.9-35.2 [facility] Comment on above: Performed By: #### C BC ####[facility] Hfunewauso[address] [place], [place] [address]Dr. Garima Pulliam MCV (RBC) [Entitic vol] 89.2 fL Normal 80.0-94.0 [facility] Comment on above: Performed By: #### C BC ####[facility] Punxwogfhz[address] [place], [place] [address]Dr. Garima Pulliam MONO # 0.7 103/ul Normal 0.3-0.8 [facility] Comment on above: Performed By: #### C BC ####[facility] Mcabbycuoz9194 [place] [phone]. Garima Pulliam Monocytes/100 WBC (Bld) 8.3 % Normal 1.7-12.0 [facility] Comment on above: Performed By: #### C BC ####[facility] Rupkimmmul4167 [place] [phone]. Garima Pulliam NEUT # 5.1 103/ul Normal 1.4-6.5 [facility] Comment on above: Performed By: #### C BC ####[facility] Trwipwilef1148 [place] [phone]. Garima Pulliam Neutrophils/100 WBC (Bld) 59.0 % Normal 43.0-75.0 [facility] Comment on above: Performed By: #### C BC ####[facility] Rwzefdqhjs2818 [place] [address]Dr. Garima Pulliam Platelet mean volume (Bld) [Entitic vol] 8.7 fL Critically low 9.5-13.5 [facility] Comment on above: Performed By: #### C BC ####[facility] Eljwjnewbo6[address] [place] [phone]. Garima Pulliam PLT 182 103/ul Normal 150-450 [facility] Comment on above: Performed By: #### C BC ####[facility] Bmhlgikjjv2834 [place] [phone]. Garima Pulliam RBC 4.74 106/ul Normal 4.70-6.10 [facility] Comment on above: Performed By: #### C BC ####[facility] Apjdhecmht1974 [place] [phone]. Garima Pulliam WBC 8.7 103/ul Normal 4.0-11.0 [facility] Comment on above: Performed By: #### C BC ####[facility] Nqjfnzabrw3209 [place] [phone]. Garima Pulliam [facility]-25 SARS-CoV-2 (COVID-19) RNA MARIE+probe Ql (Unsp spec) Not detected Normal NOT DETECTED [facility] Comment on above: Result Comment: When [...] for this test is supported by the [place] of Health and Human Service's declaration that [...] be used). Performed By: #### C VDTB ####[facility] Lqwwnaheht59[address] [place] [address]Dr. Garima Pulliam PROF 14(COMP METB)on 023 Albumin [Mass/Vol] 3.6 g/dL Normal 3.4-5.0 [facility] Comment on above: Performed By: #### C MP, BNP, HSTROPN ####[facility] Rphgqskkwx1525 [place] [address]Dr. Garima Pulliam Albumin/Globulin [Mass ratio] 1.5 {ratio} Normal [facility] Comment on above: Performed By: #### C MP, BNP, HSTROPN ####[facility] Urjifogcqz6495 [place] [address]Dr. Garima Pulliam ALP [Catalytic activity/Vol] 79 U/L Normal 46-116 [facility] Comment on above: Performed By: #### C MP, BNP, HSTROPN ####[facility] Ejnxwgchiz4889 [place] [address]Dr. Garima Pulliam ALT [Catalytic activity/Vol] 27 U/L Normal 16-63 [facility] Comment on above: Performed By: #### C MP, BNP, HSTROPN ####[facility] Cjvthscemd1001 [place] [address]Dr. Garima Pulliam Anion gap [Moles/Vol] 11.7 mmol/L Normal [facility] Comment on above: Performed By: #### C MP, BNP, HSTROPN ####[facility] Kzmqgyllrz2863 [place] [address]Dr. Garima Pulliam AST [Catalytic activity/Vol] 21 U/L Normal 15-37 [facility] Comment on above: Performed By: #### C MP, BNP, HSTROPN ####[facility] Fbvqolayit3365 [place] [address]Dr. Garima Pulliam Bilirubin [Mass/Vol] 0.3 mg/dL Normal 0.2-1.0 [facility] Comment on above: Performed By: #### C MP, BNP, HSTROPN ####[facility] Ivzmcswhqf563[address] [place], [place] [address]Dr. Garima Pulliam Calcium [Mass/Vol] 8.9 mg/dL Normal 8.5-10.1 [facility] Comment on above: Performed By: #### C MP, BNP, HSTROPN ####[facility] Osxeolislp[address] [place], [place] [address]Dr. Garima Pulliam Chloride [Moles/Vol] 107 mmol/L Normal 98-107 [facility] Comment on above: Performed By: #### C MP, BNP, HSTROPN ####[facility] Wenbvgxdpm258[address] [place], [place] [address]Dr. Garima Pulliam CO2 [Moles/Vol] 26.0 mmol/L Normal 21.0-32.0 [facility] Comment on above: Performed By: #### C MP, BNP, HSTROPN ####[facility] Czhculibqt[address] [place], [place] [address]Dr. Garima Pulliam Creatinine [Mass/Vol] 0.65 mg/dL Critically low 0.70-1.30 [facility] Comment on above: Performed By: #### C MP, BNP, HSTROPN ####[facility] Alxikhtwku0612 [place] [address]Dr. Garima Pulliam EGFR-AF [place]IZ[place] >60 Normal >=60 [facility] Comment on above: Performed By: #### C MP, BNP, HSTROPN ####[facility] Atkmrdpiqn4209 [place] [address]Dr. Garima Pulliam EGFR-NON AF CITIZ[place] OF [place] >60 Normal >=60 [facility] Comment on above: Performed By: #### C MP, BNP, HSTROPN ####[facility] Utsktymnyz7[address] [place], [place] [address]Dr. Garima Pulliam Globulin (S) [Mass/Vol] 2.4 g/dL Normal [facility] Comment on above: Performed By: #### C MP, BNP, HSTROPN ####[facility] Obdswexdcy[address] [place], [place] [address]Dr. Garima Pulliam Glucose [Mass/Vol] 85 mg/dL Normal 74-106 The [facility] Comment on above: Performed By: #### C MP, BNP, HSTROPN ####[facility] Zoomqphnmc548[address] [place], [place] [address]Dr. Garima Pulliam Potassium [Moles/Vol] 3.7 mmol/L Normal 3.5-5.1 [facility] Comment on above: Performed By: #### C MP, BNP, HSTROPN ####[facility] Tpgnufzhwz838[address] [place], [place] [address]Dr. Garima Pulliam Protein [Mass/Vol] 6.0 g/dL Critically low 6.4-8.2 [facility] Comment on above: Performed By: #### C MP, BNP, HSTROPN ####[facility] Asonmrivuc8[address] [place], [place] [address]Dr. Garima Pulliam Sodium [Moles/Vol] 141 mmol/L Normal 136-145 The [facility] Comment on above: Performed By: #### C MP, BNP, HSTROPN ####[facility] Bcxefojrbn145[address] [place], [place] [address]Dr. Garima Pulliam Urea nitrogen [Mass/Vol] 5.0 mg/dL Critically low 7.0-18.0 [facility] Comment on above: Performed By: #### C MP, BNP, HSTROPN ####[facility] Oivnqsvkrq0079 [place] [address]Dr. Garima Pulliam Urea nitrogen/Creatinine [Mass ratio] 7.7 mg/mg Normal [facility] Comment on above: Performed By: #### C MP, BNP, HSTROPN ####[facility] Vtgzfrrixc[address] [place], [place] [address]Dr. Garima Pulliam PROTIMEon 01-12-2023 INR Coag (PPP) [Relative time] 1.16 {INR} Normal [facility] Comment on above: Performed By: #### P TT, PT ####[facility] Fcrvrdgdur[address] [place] [address]. Garima Pulliam INR GUIDELINES SEE BELOW Normal [facility] Comment on above: Result Comment: WESLEY RED INR: 2.0 - 3.0 CONDITIONS NOT LISTED BELOW 2.5 - 3.5 FOR PROSTHETIC HEART VALVE REPLACEMENT 2.5 - 3.5 RECURRENT THROMBOSIS Performed By: #### P TT, PT ####[facility] Ivapcasbuo[address] [place], [place] [address]Dr. Garima Pulliam PT Coag (PPP) [Time] 12.2 s Critically high 9.0-11.6 [facility] Comment on above: Performed By: #### P TT, PT ####[facility] Janhtixfku[address] [place], [place] [address]Dr. Garima Pulliam PTTon 01-12-2023 aPTT Coag (Bld) [Time] 29.1 s Normal 22.3-36.2 [facility] Comment on above: Performed By: #### P TT, PT ####[facility] Wwgaarzuoa250[address] [place], [place] [address]Dr. Garima Pulliam TROPONIN, HIGH SENSITIVITYon 01-12-2023 HSTROP 10.3 pg/mL Normal 4.0-76.1 [facility] Comment on above: Result Comment: CUT- OFF POINTS HAVE BEEN ESTABLISHED BASED ON THE FOURTH UNIVERSAL DEFINITIONS OF MYOCARDIALINFARCTION. THE UPPER REFERENCE LIMIT (URL) OF TROPONIN, DEFINED THE 99TH PERCENTILE OFcTnI DISTRIBUTION IN A REFERENCE POPULATION, HAS BEEN CONFIRMED THE DECISION THRESHOLDFOR PA DIAGNOSIS. Performed By: #### H STROPN ####[facility] Avrqphbqkc6275 [place] [address]Dr. Garima Pulliam HSTROP 9.2 pg/mL Normal 4.0-76.1 [facility] Comment on above: Result Comment: CUT- OFF POINTS HAVE BEEN ESTABLISHED BASED ON THE FOURTH UNIVERSAL DEFINITIONS OF MYOCARDIALINFARCTION. THE UPPER REFERENCE LIMIT (URL) OF TROPONIN, DEFINED THE 99TH PERCENTILE OFcTnI DISTRIBUTION IN A REFERENCE POPULATION, HAS BEEN CONFIRMED THE DECISION THRESHOLDFOR PA DIAGNOSIS. Performed By: #### C MP, BNP, HSTROPN ####[facility] Ttgbxihigb7318 [place] [address]Dr. Garima Pulliam XR CHEST 1 Von 01-12-2023 XR CHEST 1 V Normal [facility] XR CHEST 1 Von 01-01-2023 XR CHEST 1 V Normal [facility] CARDIAC NASH 3-6on 3 CK [Catalytic activity/Vol] 196 U/L Normal 39-308 [facility] Comment on above: Performed By: #### C MREP ####[facility] Xpgxgdkgtm7375 [place] [address]Dr. Garima Pulliam CK.MB [Mass/Vol] 7.41 ng/mL Critically high <=3.60 [facility] Comment on above: Performed By: #### C MREP ####[facility] Afvvpwgfrx6070 [place] [address]Dr. Garima Pulliam HSTROP 10.3 pg/mL Normal 4.0-76.1 [facility] Comment on above: Result Comment: CUT- OFF POINTS HAVE BEEN ESTABLISHED BASED ON THE FOURTH UNIVERSAL DEFINITIONS OF MYOCARDIALINFARCTION. THE UPPER REFERENCE LIMIT (URL) OF TROPONIN, DEFINED THE 99TH PERCENTILE OFcTnI DISTRIBUTION IN A REFERENCE POPULATION, HAS BEEN CONFIRMED THE DECISION THRESHOLDFOR PA DIAGNOSIS. Performed By: #### C MREP ####[facility] Rdzuktklqg6277 [place] [address]Dr. Garima Pulliam XR CHEST 1 Von 12-26-2022 XR CHEST 1 V Normal [facility] BNPon 12-25-2022 Natriuretic peptide B (Bld) [Mass/Vol] 98.0 pg/mL Normal <=900.0 [facility] Comment on above: Performed By: #### B HOT MILL SHEARER, BMP, CMADM ####[facility] Onyeygzwrn2108 [place] [phone]. Garima Pulliam CARDIAC NASH ADMITon 023 CK [Catalytic activity/Vol] 208 U/L Normal 39-308 [facility] Comment on above: Performed By: #### B HOT MILL SHEARER, BMP, CMADM ####[facility] Zcxomwfllg3758 [place] [address]Dr. Garima Pulliam CK.MB [Mass/Vol] 7.63 ng/mL Critically high <=3.60 [facility] Comment on above: Performed By: #### B HOT MILL SHEARER, BMP, CMADM ####[facility] Skftbnsfdm8328 [place] [address]Dr. Garima Pulliam HSTROP 8.8 pg/mL Normal 4.0-76.1 [facility] Comment on above: Result Comment: CUT- OFF POINTS HAVE BEEN ESTABLISHED BASED ON THE FOURTH UNIVERSAL DEFINITIONS OF MYOCARDIALINFARCTION. THE UPPER REFERENCE LIMIT (URL) OF TROPONIN, DEFINED THE 99TH PERCENTILE OFcTnI DISTRIBUTION IN A REFERENCE POPULATION, HAS BEEN CONFIRMED THE DECISION THRESHOLDFOR PA DIAGNOSIS. Performed By: #### B HOT MILL SHEARER, BMP, CMADM ####[facility] Ewuxpwknkc5659 [place] [address]Dr. Garima Pulliam DORIS 83 ng/mL Normal 16-96 [facility] Comment on above: Performed By: #### B HOT MILL SHEARER, BMP, CMADM ####[facility] Kqwfqqyzcr6704 [place] [phone]. Garima Pulliam CBC AUTO DIFFon 12-25-2022 BASO # 0.0 103/ul Normal 0.0-0.1 [facility] Comment on above: Performed By: #### C BC ####[facility] Vuusucelli5272 [place] [address]Dr. Garima Pulliam Basophils/100 WBC (Bld) 0.0 % Critically low 0.2-2.0 [facility] Comment on above: Performed By: #### C BC ####[facility] Idwcmkxstk[address] [place], [place] [address]Dr. Garima Pulliam EO # 0.0 103/ul Normal 0.0-0.7 [facility] Comment on above: Performed By: #### C BC ####[facility] Ybkajhurer64[address] [place], [place] [address]Dr. Garima Pulliam Eosinophils/100 WBC (Bld) 0.7 % Critically low 0.9-7.0 [facility] Comment on above: Performed By: #### C BC ####[facility] Xliqiggego67[address] [place], [place] [address]Dr. Garima Pulliam Erythrocyte distribution width (RBC) [Ratio] 13.4 % Normal 11.0-15.0 [facility] Comment on above: Performed By: #### C BC ####[facility] Mmmnwizhsg066[address] [place], [place] [address]Dr. Garima Pulliam Hematocrit (Bld) [Volume fraction] 42.9 % Normal 42.0-54.0 [facility] Comment on above: Performed By: #### C BC ####[facility] Vhsenspjop607[address] [place], [place] [address]Dr. Chapisrenu Pulliam Hemoglobin (Bld) [Mass/Vol] 14.4 g/dL Normal 14.0-18.0 [facility] Comment on above: Performed By: #### C BC ####[facility] Gvzspheklz056[address] [place], [place] [address]Dr. Garima Pulliam IG # 0.00 10e3/ul Normal 0.00-0.03 [facility] Comment on above: Performed By: #### C BC ####[facility] Glpxqfqhss402[address] [place], [place] [address]Dr. Garima Pulliam IG % 0.0 % Normal 0.0-0.5 [facility] Comment on above: Performed By: #### C BC ####[facility] Cnlgwetkbk708[address] [place], [place] [address]Dr. Garima Pulliam LYMPH # 2.4 103/ul Normal 1.2-3.8 [facility] Comment on above: Performed By: #### C BC ####[facility] Ywjtogluvu[address] [place] [address]Dr. Garima Pulliam Lymphocytes/100 WBC (Bld) 29.2 % Normal 20.5-60.0 [facility] Comment on above: Performed By: #### C BC ####[facility] Wgblsbbnyz1869 [place] [address]DrAdalberto Pulliam MANUAL DIFF REQ NO Normal [facility] Comment on above: Performed By: #### C BC ####[facility] Upkzejwggw4270 [place] [address]Dr. Garima Pulliam MCH (RBC) [Entitic mass] 30.7 pg Normal 25.9-34.0 [facility] Comment on above: Performed By: #### C BC ####[facility] Hrskfvzjnz[address] [place], [place] [address]Dr. Garima Pulliam MCHC (RBC) [Mass/Vol] 33.6 g/dL Normal 29.9-35.2 [facility] Comment on above: Performed By: #### C BC ####[facility] Ypbsrpqbbj[address] [place], [place] [address]DrAdalberto Pulliam MCV (RBC) [Entitic vol] 91.5 fL Normal 80.0-94.0 [facility] Comment on above: Performed By: #### C BC ####[facility] Nngnzeiplu1005 [place] [address]Dr. Garima Pulliam MONO # 0.0 103/ul Critically low 0.3-0.8 [facility] Comment on above: Performed By: #### C BC ####[facility] Nxtjvskauc[address] [place], [place] [address]DrAdalberto Pulliam Monocytes/100 WBC (Bld) 8.0 % Normal 1.7-12.0 [facility] Comment on above: Performed By: #### C BC ####[facility] Fiasyldovk[address] [place], [place] [address]DrAdalberto Pulliam NEUT # 5.1 103/ul Normal 1.4-6.5 [facility] Comment on above: Performed By: #### C BC ####[facility] Abmbsclncn4678 [place] [id number]. Garima Pulliam Neutrophils/100 WBC (Bld) 62.8 % Normal 43.0-75.0 [facility] Comment on above: Performed By: #### C BC ####[facility] Fdaymmrlyc7143 [place] [id number]. Garima Pulliam Platelet mean volume (Bld) [Entitic vol] 8.6 fL Critically low 9.5-13.5 [facility] Comment on above: Performed By: #### C BC ####[facility] Rptzxxjctj2220 [place] [id number]. Garima Pulliam PLT 200 103/ul Normal 150-450 [facility] Comment on above: Performed By: #### C BC ####[facility] Pedrrpdkvw0026 [place] [id number]. Garima Pulliam RBC 4.69 106/ul Critically low 4.70-6.10 The [facility] Comment on above: Performed By: #### C BC ####[facility] Toxdewxjlf9712 [place] [id number]. Garima Pulliam WBC 8.2 103/ul Normal 4.0-11.0 [facility] Comment on above: Performed By: #### C BC ####[facility] Wcfbeyowwg1892 [place] [id number]. Garima Pulliam [facility]on SARS-CoV-2 (COVID-19) RNA MARIE+probe Ql (Unsp spec) Not detected Normal NOT DETECTED [facility] Comment on above: Result Comment: When [...] for this test is supported by the [place] of Health and Human Service's declaration that [...] be used). Performed By: #### C VDTBH ####[facility] Iadbmhjmcb[address] [place], [place] [address]Dr. Garima Pulliam INFLUENZA A AND B AGon 12-25 INFLUANE SEE BELOW Normal [facility] Comment on above: Result Comment: Nega tive for Flu A protein angiten. Infection due to Flu A cannot be ruled out. Flu A angiten in the sample may be below the detection limit of the test. Performed By: #### I NFLUAB ####[facility] [address] [place] [address]. Garima Pulliam INFLUBNEGH SEE BELOW Normal [facility] Comment on above: Result Comment: Nega tive for Flu B protein antigen. Infection due to Flu B cannot be ruled out. Flu B antigen in the sample may be below the detection limit of the test. Performed By: #### I NFLUAB ####[facility] Thlwcvguga[address] [place], [place] [address]Dr. renu Pulliam INFLUENZA A AG Negative Normal NEGATIVE SEE COMMENT [facility] Comment on above: Performed By: #### I NFLUAB ####[facility] Pcsiszybwg[address] [place], [place] [address]Dr. Garima Pulliam INFLUENZA B AG Negative Normal NEGATIVE SEE COMMENT [facility] Comment on above: Performed By: #### I NFLUAB ####[facility] Gh[address]vte[address] [place] [address]. Garima Pulliam PROF CHEM 8 (BAS METB)on Anion gap [Moles/Vol] 11.1 mmol/L Normal Th [facility] Comment on above: Performed By: #### B HOT MILL SHEARER, BMP, CMADM ####[facility] Psrofnqmph6047 [place] [id number]. Garima Pulliam Calcium [Mass/Vol] 8.5 mg/dL Normal 8.5-10.1 [facility] Comment on above: Performed By: #### B HOT MILL SHEARER, BMP, CMADM ####[facility] Ivlxtchxpz2810 [place] [id number]. Garima Pulliam Chloride [Moles/Vol] 106 mmol/L Normal 98-107 [facility] Comment on above: Performed By: #### B HOT MILL SHEARER, BMP, CMADM ####[facility] Tgfiifyxfm6424 [place] [address]Dr. Garima Pulliam CO2 [Moles/Vol] 27.4 mmol/L Normal 21.0-32.0 [facility] Comment on above: Performed By: #### B HOT MILL SHEARER, BMP, CMADM ####[facility] Rospgohwdt[address] [place] [address]Dr. Garima Pulliam Creatinine [Mass/Vol] 0.65 mg/dL Critically low 0.70-1.30 [facility] Comment on above: Performed By: #### B HOT MILL SHEARER, BMP, CMADM ####[facility] Azrbvockpl5[address] [place] [address]Dr. Garima Pulliam EGFR-AF CITIZEN [place] >60 Normal >=60 [facility] Comment on above: Performed By: #### B HOT MILL SHEARER, BMP, CMADM ####[facility] Qgngnkxynd3324 [place] [address]Dr. Garima Pulliam EGFR-NON AF CITIZEN OF [place] >60 Normal >=60 [facility] Comment on above: Performed By: #### B HOT MILL SHEARER, BMP, CMADM ####[facility] Ehlpxqephz98[address] [place] [address]Dr. Garima Pulliam Glucose [Mass/Vol] 140 mg/dL Critically high 74-106 [facility] Comment on above: Performed By: #### B HOT MILL SHEARER, BMP, CMADM ####[facility] Usqmcxwekr5824 [place] [address]Dr. Garima Pulliam Potassium [Moles/Vol] 3.5 mmol/L Normal 3.5-5.1 [facility] Comment on above: Performed By: #### B HOT MILL SHEARERMARVIN, NANCY ####[facility] Fkphzxhqom4867 [place] [address]Dr. Chapisrenu Pulliam Sodium [Moles/Vol] 141 mmol/L Normal 136-145 [facility] Comment on above: Performed By: #### B HOT MILL SHEARERMARVIN, CMAANA ROSA ####[facility] Zsuilwusgy6131 [place] [address]Dr. Garima Pulliam Urea nitrogen [Mass/Vol] 8.0 mg/dL Normal 7.0-18.0 [facility] Comment on above: Performed By: #### B MARVIN FRENCH CMADM ####[facility] Pcthvoqklu2327 [place] [address]Dr. Garima Pulliam Urea nitrogen/Creatinine [Mass ratio] 12.3 mg/mg Normal [facility] Comment on above: Performed By: #### B MARVIN FRENCH CMAANA ROSA ####[facility] Zireggjrzl5509 [place] [address]Dr. Garima Heraclio CARDIAC NASH ADMITon 023 CK [Catalytic activity/Vol] 165 U/L Normal 39-308 [facility] Comment on above: Performed By: #### B NANCY HERNANDEZ ####[facility] Kvucncsczt[address] [place], [place] [address]Dr. Garima Pulliam CK.MB [Mass/Vol] 6.48 ng/mL Critically high <=3.60 [facility] Comment on above: Performed By: #### B MP, CMADM ####[facility] Lhphleyron[address] [place], [place] [address]Dr. Garima Heraclio HSTROP 11.7 pg/mL Normal 4.0-76.1 [facility] Comment on above: Result Comment: CUT- OFF POINTS HAVE BEEN ESTABLISHED BASED ON THE FOURTH UNIVERSAL DEFINITIONS OF MYOCARDIALINFARCTION. THE UPPER REFERENCE LIMIT (URL) OF TROPONIN, DEFINED THE 99TH PERCENTILE OFcTnI DISTRIBUTION IN A REFERENCE POPULATION, HAS BEEN CONFIRMED THE DECISION THRESHOLDFOR PA DIAGNOSIS. Performed By: #### B DAVID, CMADM ####[facility] Yuoaajfsst0197 [place] [phone]. Garima Pulliam DORIS 83 ng/mL Normal 16-96 [facility] Comment on above: Performed By: #### B MP, CMADM ####[facility] Tfhqtunfof8369 [place] [phone]. Garima Pulliam CBC AUTO DIFFon 12-10-2022 BASO # 0.0 103/ul Normal 0.0-0.1 [facility] Comment on above: Performed By: #### C BC ####[facility] Moyiumstku9727 [place] [phone]. Garima Pulliam Basophils/100 WBC (Bld) 0.3 % Normal 0.2-2.0 [facility] Comment on above: Performed By: #### C BC ####[facility] Jgmghscznf1415 [place] [address]Dr. Garima Pulliam EO # 0.1 103/ul Normal 0.0-0.7 [facility] Comment on above: Performed By: #### C BC ####[facility] Coyctfdbsv4036 [place] [phone]. Garima Pulliam Eosinophils/100 WBC (Bld) 0.4 % Critically low 0.9-7.0 [facility] Comment on above: Performed By: #### C BC ####[facility] Zelonayicz8250 [place] [phone]. Garima Pulliam Erythrocyte distribution width (RBC) [Ratio] 13.2 % Normal 11.0-15.0 [facility] Comment on above: Performed By: #### C BC ####[facility] Hessjunaie[address] [place], [place] [address]Dr. Garima Pulliam Hematocrit (Bld) [Volume fraction] 42.4 % Normal 42.0-54.0 [facility] Comment on above: Performed By: #### C BC ####[facility] Zihsyvswmk[address] [place], [place] [address]Dr. Garima Pulliam Hemoglobin (Bld) [Mass/Vol] 14.4 g/dL Normal 14.0-18.0 [facility] Comment on above: Performed By: #### C BC ####[facility] Ccpthqgrwa8361 [place] [phone]. Garima Pulliam IG # 0.05 10e3/ul Critically high 0.00-0.03 [facility] Comment on above: Performed By: #### C BC ####[facility] Igjzosjmqz5731 [place] [phone]. Garima Pulliam IG % 0.4 % Normal 0.0-0.5 [facility] Comment on above: Performed By: #### C BC ####[facility] Fydfjxrthw9150 [place] [address]Dr. Garima Pulliam LYMPH # 0.8 103/ul Critically low 1.2-3.8 [facility] Comment on above: Performed By: #### C BC ####[facility] Cspoilyqwz2608 [place] [address]Dr. Garima Pulliam Lymphocytes/100 WBC (Bld) 6.5 % Critically low 20.5-60.0 [facility] Comment on above: Performed By: #### C BC ####[facility] Ajkrhlyxpe5233 [place] [address]Dr. Garima Pulliam MANUAL DIFF REQ NO Normal [facility] Comment on above: Performed By: #### C BC ####[facility] Bfktfrauys1085 [place] [address]Dr. Garima Pulliam MCH (RBC) [Entitic mass] 30.5 pg Normal 25.9-34.0 [facility] Comment on above: Performed By: #### C BC ####[facility] Rgctmzmtlj[address] [place], [place] [address]Dr. Garima Pulliam MCHC (RBC) [Mass/Vol] 34.0 g/dL Normal 29.9-35.2 [facility] Comment on above: Performed By: #### C BC ####[facility] Xliwryzfhh[address] [place], [place] [address]Dr. Garima Pulliam MCV (RBC) [Entitic vol] 89.8 fL Normal 80.0-94.0 [facility] Comment on above: Performed By: #### C BC ####[facility] Afwwdducuq0295 [place] [phone]. Garima Pulliam MONO # 0.2 103/ul Critically low 0.3-0.8 [facility] Comment on above: Performed By: #### C BC ####[facility] Agoirxiras0711 [place] [phone]. Garima Pulliam Monocytes/100 WBC (Bld) 2.0 % Normal 1.7-12.0 [facility] Comment on above: Performed By: #### C BC ####[facility] Gtgevacpjg7592 [place] [phone]. Garima Pulliam NEUT # 10.5 103/ul Critically high 1.4-6.5 The [facility] Comment on above: Performed By: #### C BC ####[facility] Qeomsfbbzi9821 [place] [phone]. Garima Pulliam Neutrophils/100 WBC (Bld) 90.4 % Critically high 43.0-75.0 [facility] Comment on above: Performed By: #### C BC ####[facility] Ncznmvqvcn0067 [place] [phone]. Garima Pulliam Platelet mean volume (Bld) [Entitic vol] 9.4 fL Critically low 9.5-13.5 [facility] Comment on above: Performed By: #### C BC ####[facility] Vzsvwarggc9458 [place] [phone]. Garima Pulliam PLT 198 103/ul Normal 150-450 [facility] Comment on above: Performed By: #### C BC ####[facility] Bvplgqzggm8423 [place] [phone]. Garima Pulliam RBC 4.72 106/ul Normal 4.70-6.10 [facility] Comment on above: Performed By: #### C BC ####[facility] Veyfkzceqd6491 [place] [phone]. Garima Pulliam WBC 11.6 103/ul Critically high 4.0-11.0 The [facility] Comment on above: Performed By: #### C BC ####[facility] Zicbokahzy2766 [place] [address]Dr. Garima Pulliam PROF CHEM 8 (BAS METB)on Anion gap [Moles/Vol] 11.3 mmol/L Normal [facility] Comment on above: Performed By: #### B DAVID, CMADM ####[facility] Tjcvkganoa8059 [place] [address]Dr. Garima Pulliam Calcium [Mass/Vol] 8.9 mg/dL Normal 8.5-10.1 [facility] Comment on above: Performed By: #### B DAVID, NANCY ####[facility] Typtsgczld5582 [place] [address]Dr. Garima Pulliam Chloride [Moles/Vol] 103 mmol/L Normal 98-107 [facility] Comment on above: Performed By: #### B DAVID, CMADM ####[facility] Genhdmsmbc[address] [place], [place] [address]Dr. Garima Pulliam CO2 [Moles/Vol] 28.2 mmol/L Normal 21.0-32.0 [facility] Comment on above: Performed By: #### Trae HERNANDEZ, NANCY ####[facility] Mqhwioacyz3003 [place] [address]Dr. Garima Pulliam Creatinine [Mass/Vol] 0.60 mg/dL Critically low 0.70-1.30 [facility] Comment on above: Performed By: #### Trae HERNANDEZ, CMAANA ROSA ####[facility] Ftqhbjhoyd6790 [place] [address]Dr. Garima Pulliam EGFR-AF CITIZ[place] >60 Normal >=60 [facility] Comment on above: Performed By: #### B DAVID, CMAANA ROSA ####[facility] Mjxxokbdqa2152 [place] [address]Dr. Garima Pulliam EGFR-NON AF CITIZEN OF [place] >60 Normal >=60 [facility] Comment on above: Performed By: #### B DAVID, CMADM ####[facility] Myglcjojkv0951 [place] [address]Dr. Garima Pulliam Glucose [Mass/Vol] 166 mg/dL Critically high 74-106 [facility] Comment on above: Performed By: #### B DAVID, CMADM ####[facility] Glinwimvnb9605 [place] [address]Dr. Garima Pulliam Potassium [Moles/Vol] 3.5 mmol/L Normal 3.5-5.1 [facility] Comment on above: Performed By: #### B DAVID, CMADM ####[facility] Zyquabncoi[address] [place], [place] [address]Dr. Garima Pulliam Sodium [Moles/Vol] 139 mmol/L Normal 136-145 [facility] Comment on above: Performed By: #### B DAVID, CMADM ####[facility] Lyyizhhafh[address] [place], [place] [address]Dr. Chapisrenu Heraclio Urea nitrogen [Mass/Vol] 9.0 mg/dL Normal 7.0-18.0 [facility] Comment on above: Performed By: #### B DAVID, CMAANA ROSA ####[facility] Efqjhvovvu[address] [place], [place] [address]Dr. Garima Pulliam Urea nitrogen/Creatinine [Mass ratio] 15.0 mg/mg Normal [facility] Comment on above: Performed By: #### B DAVID, CMAANA ROSA ####[facility] Oqsylqxoqs[address] [place], [place] [address]Dr. Garima Heraclio XR CHEST 1 Von 12-10-2022 XR CHEST 1 V Normal [facility] BNPon 11-27-2022 Natriuretic peptide B (Bld) [Mass/Vol] 95.0 pg/mL Normal <=900.0 [facility] Comment on above: Performed By: #### C MP, HSTROPN, BNP ####[facility] Zcgryjulgf[address] [place], [place] [address]Dr. Garima Pulliam CBC AUTO DIFFon 11-27-2022 BASO # 0.0 103/ul Normal 0.0-0.1 [facility] Comment on above: Performed By: #### C BC ####[facility] Jayukawsbt[address] [place], [place] [address]Dr. Garima Pulliam Basophils/100 WBC (Bld) 0.2 % Normal 0.2-2.0 [facility] Comment on above: Performed By: #### C BC ####[facility] Xdgnpowdwh2800 [place] [phone]. Garima Pulliam EO # 0.2 103/ul Normal 0.0-0.7 [facility] Comment on above: Performed By: #### C BC ####[facility] Eatynucpve0399 [place] [phone]. Garima Pulliam Eosinophils/100 WBC (Bld) 2.0 % Normal 0.9-7.0 [facility] Comment on above: Performed By: #### C BC ####[facility] Heobtitgeu359[address] [place], [place] [address]Dr. Garima Pulliam Erythrocyte distribution width (RBC) [Ratio] 13.2 % Normal 11.0-15.0 [facility] Comment on above: Performed By: #### C BC ####[facility] Njdfpxrrlj[address] [place], [place] [address]Dr. Garima Pulliam Hematocrit (Bld) [Volume fraction] 42.4 % Normal 42.0-54.0 [facility] Comment on above: Performed By: #### C BC ####[facility] Vqwqjbnlhz[address] [place], [place] [address]Dr. Garima Pulliam Hemoglobin (Bld) [Mass/Vol] 14.4 g/dL Normal 14.0-18.0 [facility] Comment on above: Performed By: #### C BC ####[facility] Ojyrbrmwsk[address] [place], [place] [address]Dr. Garima Pulliam IG # 0.04 10e3/ul Critically high 0.00-0.03 [facility] Comment on above: Performed By: #### C BC ####[facility] Bnfaswxzlb[address] [place], [place] [address]Dr. Garima Pulliam IG % 0.4 % Normal 0.0-0.5 [facility] Comment on above: Performed By: #### C BC ####[facility] Ptbnomkjjh455[address] [place], [place] [address]Dr. Garima Pulliam LYMPH # 2.2 103/ul Normal 1.2-3.8 [facility] Comment on above: Performed By: #### C BC ####[facility] Tujsyynpzt4649 [place] [phone]. Chapisrenu Pulliam Lymphocytes/100 WBC (Bld) 21.5 % Normal 20.5-60.0 [facility] Comment on above: Performed By: #### C BC ####[facility] Rqizwhymwg9725 [place] [phone]. Garima Pulliam MANUAL DIFF REQ NO Normal [facility] Comment on above: Performed By: #### C BC ####[facility] Gwmtlcjywf8462 [place] [phone]. Garima Pulliam MCH (RBC) [Entitic mass] 30.4 pg Normal 25.9-34.0 [facility] Comment on above: Performed By: #### C BC ####[facility] Vlaycrpmrl4737 [place] [phone]. Garima Pulliam MCHC (RBC) [Mass/Vol] 34.0 g/dL Normal 29.9-35.2 [facility] Comment on above: Performed By: #### C BC ####[facility] Xbxprciarw5769 [place] [phone]. Garima Pulliam MCV (RBC) [Entitic vol] 89.6 fL Normal 80.0-94.0 [facility] Comment on above: Performed By: #### C BC ####[facility] Gxbfrszjbf8732 [place] [phone]. Garima Pulliam MONO # 0.8 103/ul Normal 0.3-0.8 [facility] Comment on above: Performed By: #### C BC ####[facility] Raekukvcqq1462 [place] [phone]. Garima Pulliam Monocytes/100 WBC (Bld) 7.7 % Normal 1.7-12.0 [facility] Comment on above: Performed By: #### C BC ####[facility] Divqyfessb2779 [place] [phone]. Garima Pulliam NEUT # 7.0 103/ul Critically high 1.4-6.5 [facility] Comment on above: Performed By: #### C BC ####[facility] Pdlgsbpgpq7450 [place] [address]Dr. Garima Pulliam Neutrophils/100 WBC (Bld) 68.2 % Normal 43.0-75.0 [facility] Comment on above: Performed By: #### C BC ####[facility] Skzskwzaar1118 [place] [phone]. Garima Pulliam Platelet mean volume (Bld) [Entitic vol] 8.9 fL Critically low 9.5-13.5 [facility] Comment on above: Performed By: #### C BC ####[facility] Dedmwzoixl1962 [place] [address]Dr. Garima Pulliam PLT 222 103/ul Normal 150-450 [facility] Comment on above: Performed By: #### C BC ####[facility] Dcgorlvkhl1324 [place] [address]Dr. Garima Pulliam RBC 4.73 106/ul Normal 4.70-6.10 [facility] Comment on above: Performed By: #### C BC ####[facility] Xufaacfewj[address] [place], [place] [address]Dr. Garima Pulliam WBC 10.3 103/ul Normal 4.0-11.0 [facility] Comment on above: Performed By: #### C BC ####[facility] Qmiwxozzzs3121 [place] [address]DrAdalberto Pulliam PROF 14(COMP METB)on 023 Albumin [Mass/Vol] 3.7 g/dL Normal 3.4-5.0 [facility] Comment on above: Performed By: #### C MP, HSTROPN, BNP ####[facility] Lrsjyyzgbl0552 [place] [phone]. Garima Pulliam Albumin/Globulin [Mass ratio] 1.5 {ratio} Normal [facility] Comment on above: Performed By: #### C MP, HSTROPN, BNP ####[facility] Nnwlklueud1811 [place] [phone] Pulliam ALP [Catalytic activity/Vol] 79 U/L Normal 46-116 [facility] Comment on above: Performed By: #### C DAVID HSTROPN, BNP ####[facility] Eogbfxwzvu9853 [place] [address]Dr. Garima Pulliam ALT [Catalytic activity/Vol] 32 U/L Normal 16-63 [facility] Comment on above: Performed By: #### C DAVID, HSTROPN, BNP ####[facility] Lusfkfltbo9837 [place] [address]Dr. Garima Pulliam Anion gap [Moles/Vol] 9.5 mmol/L Normal [facility] Comment on above: Performed By: #### C DAVID HSTROPN, BNP ####[facility] Rbcxuaeicq[address] [place], [place] [address]Dr. Garima Pulliam AST [Catalytic activity/Vol] 25 U/L Normal 15-37 [facility] Comment on above: Performed By: #### C DAVID, HSTROPN, BNP ####[facility] Alnozqpmdl[address] [place], [place] [address]Dr. Garima Pulliam Bilirubin [Mass/Vol] 0.4 mg/dL Normal 0.2-1.0 [facility] Comment on above: Performed By: #### C DAVID HSTROPN, BNP ####[facility] Mojisihzra[address] [place], [place] [address]Dr. Garima Pulliam Calcium [Mass/Vol] 8.9 mg/dL Normal 8.5-10.1 [facility] Comment on above: Performed By: #### C DAVID, HSTROPN, BNP ####[facility] Kfhfhuzisg1167 [place] [address]Dr. Garima Pulliam Chloride [Moles/Vol] 103 mmol/L Normal 98-107 [facility] Comment on above: Performed By: #### C DAVID, HSTROPN, BNP ####[facility] Qyobesfnje9783 [place] [address]Dr. Garima Pulliam CO2 [Moles/Vol] 28.6 mmol/L Normal 21.0-32.0 [facility] Comment on above: Performed By: #### C MP, HSTROPN, BNP ####[facility] Xfjpfhephj2915 [place] [address]Dr. Garima Pulliam Creatinine [Mass/Vol] 0.72 mg/dL Normal 0.70-1.30 [facility] Comment on above: Performed By: #### C MP, HSTROPN, BNP ####[facility] Ogemyxqvtv0713 [place] [address]Dr. Garima Pulliam EGFR-AF [place]IZ[place] >60 Normal >=60 [facility] Comment on above: Performed By: #### C MP, HSTROPN, BNP ####[facility] Qfmccrhkey[address] [place], [place] [address]Dr. Garima Pulliam EGFR-NON AF CITIZEN [place] >60 Normal >=60 [facility] Comment on above: Performed By: #### C MP, HSTROPN, BNP ####[facility] Qcjqipbmgk[address] [place], [place] [address]Dr. Garima Pulliam Globulin (S) [Mass/Vol] 2.5 g/dL Normal [facility] Comment on above: Performed By: #### C MP, HSTROPN, BNP ####[facility] Svpcluklai[address] [place], [place] [address]Dr. Garima Pulliam Glucose [Mass/Vol] 114 mg/dL Critically high 74-106 [facility] Comment on above: Performed By: #### C MP, HSTROPN, BNP ####[facility] Majzpgidop[address] [place], [place] [address]Dr. Garima Pulliam Potassium [Moles/Vol] 4.1 mmol/L Normal 3.5-5.1 [facility] Comment on above: Performed By: #### C MP, HSTROPN, BNP ####[facility] Fhncjcfmzn[address] [place], [place] [address]Dr. Garima Pulliam Protein [Mass/Vol] 6.2 g/dL Critically low 6.4-8.2 [facility] Comment on above: Performed By: #### C MP, HSTROPN, BNP ####[facility] Zawqavwwgh6626 [place] [address]Dr. Garima Pulliam Sodium [Moles/Vol] 137 mmol/L Normal 136-145 [facility] Comment on above: Performed By: #### C MP, HSTROPN, BNP ####[facility] Kozoxfkuwo8151 [place] [address]Dr. Garima Pulliam Urea nitrogen [Mass/Vol] 13.0 mg/dL Normal 7.0-18.0 [facility] Comment on above: Performed By: #### C MP, HSTROPN, BNP ####[facility] Yqebsokyry3793 [place] [address]Dr. Chapisrenu Pulliam Urea nitrogen/Creatinine [Mass ratio] 18.1 mg/mg Normal [facility] Comment on above: Performed By: #### C MP, HSTROPN, BNP ####[facility] Mvcaylleqk[address] [place], [place] [address]Dr. Garima Pulliam TROPONIN, HIGH SENSITIVITYon 11-27-2022 HSTROP 11.8 pg/mL Normal 4.0-76.1 [facility] Comment on above: Result Comment: CUT- OFF POINTS HAVE BEEN ESTABLISHED BASED ON THE FOURTH UNIVERSAL DEFINITIONS OF MYOCARDIALINFARCTION. THE UPPER REFERENCE LIMIT (URL) OF TROPONIN, DEFINED THE 99TH PERCENTILE OFcTnI DISTRIBUTION IN A REFERENCE POPULATION, HAS BEEN CONFIRMED THE DECISION THRESHOLDFOR PA DIAGNOSIS. Performed By: #### C MP, HSTROPN, BNP ####[facility] Tnczjikbtl9814 [place] [address]Dr. Garima Pulliam XR CHEST 1 Von 11-27-2022 XR CHEST 1 V Normal [facility] BNPon 11-20-2022 Natriuretic peptide B (Bld) [Mass/Vol] 73.0 pg/mL Normal <=900.0 [facility] Comment on above: Performed By: #### B MP, HSTROPN, BNP ####[facility] Bkfbhvsiby[address] [place], [place] [address]Dr. Chapisrenu Pulliam CBC AUTO DIFFon 11-20-2022 BASO # 0.0 103/ul Normal 0.0-0.1 [facility] Comment on above: Performed By: #### C BC ####[facility] Eiwwircwfn5382 [place] [phone]. Garima Pulliam Basophils/100 WBC (Bld) 0.3 % Normal 0.2-2.0 [facility] Comment on above: Performed By: #### C BC ####[facility] Upkwrstphk[address] [place], [place] [address]Dr. Garima Pulliam EO # 0.2 103/ul Normal 0.0-0.7 [facility] Comment on above: Performed By: #### C BC ####[facility] Crmmqznjkl[address] [place], [place] [address]Dr. Garima Pulliam Eosinophils/100 WBC (Bld) 2.1 % Normal 0.9-7.0 [facility] Comment on above: Performed By: #### C BC ####[facility] Ygzvinpuaf[address] [place], [place] [address]Dr. Garima Pulliam Erythrocyte distribution width (RBC) [Ratio] 13.2 % Normal 11.0-15.0 [facility] Comment on above: Performed By: #### C BC ####[facility] [address]xvhwugmny[address] [place], [place] [address]Dr. Garima Pulliam Hematocrit (Bld) [Volume fraction] 43.4 % Normal 42.0-54.0 [facility] Comment on above: Performed By: #### C BC ####[facility] Cxqafhfiei256043 [address] [place], [place] [id number]. Garima Pulliam Hemoglobin (Bld) [Mass/Vol] 14.6 g/dL Normal 14.0-18.0 [facility] Comment on above: Performed By: #### C BC ####[facility] Jqypvkfuar[address] [place], [place] [address]Dr. Garima Pulliam IG # 0.02 10e3/ul Normal 0.00-0.03 [facility] Comment on above: Performed By: #### C BC ####[facility] Ihmljjrfmi[address] [place], [place] [address]Dr. Garima Pulliam IG % 0.2 % Normal 0.0-0.5 [facility] Comment on above: Performed By: #### C BC ####[facility] Whqzkaqhbz2[address] [place] [id number]. Chapisrenu Heraclio LYMPH # 2.1 103/ul Normal 1.2-3.8 [facility] Comment on above: Performed By: #### C BC ####[facility] Dyrkhbfasx4591 [place] [id number]. Garima Pulliam Lymphocytes/100 WBC (Bld) 19.2 % Critically low 20.5-60.0 [facility] Comment on above: Performed By: #### C BC ####[facility] Xetmnenbcv4360 [place] [id number]. Garima Pulliam MANUAL DIFF REQ NO Normal [facility] Comment on above: Performed By: #### C BC ####[facility] Stwzfinlco1200 [place] [phone]. Garima Pulliam MCH (RBC) [Entitic mass] 30.4 pg Normal 25.9-34.0 [facility] Comment on above: Performed By: #### C BC ####[facility] Fhbisdqgro2825 [place] [id number]. Garima Pulliam MCHC (RBC) [Mass/Vol] 33.6 g/dL Normal 29.9-35.2 [facility] Comment on above: Performed By: #### C BC ####[facility] Beyizpdcxf6521 [place] [phone]. Garima Pulliam MCV (RBC) [Entitic vol] 90.4 fL Normal 80.0-94.0 [facility] Comment on above: Performed By: #### C BC ####[facility] Qevnthhwbt2456 [place] [address]Dr. Garima Pulliam MONO # 0.6 103/ul Normal 0.3-0.8 [facility] Comment on above: Performed By: #### C BC ####[facility] Aznchufojv2417 [place] [id number]. Garima Pulliam Monocytes/100 WBC (Bld) 5.8 % Normal 1.7-12.0 [facility] Comment on above: Performed By: #### C BC ####[facility] Dcaibrzdja0654 [place] [id number]. Garima Pulliam NEUT # 7.8 103/ul Critically high 1.4-6.5 [facility] Comment on above: Performed By: #### C BC ####[facility] Fryruidzqg9349 [place] [id number]. Garima Pulliam Neutrophils/100 WBC (Bld) 72.4 % Normal 43.0-75.0 [facility] Comment on above: Performed By: #### C BC ####[facility] Uirrvuiwrj7578 [place] [id number]. Garima Pulliam Platelet mean volume (Bld) [Entitic vol] 8.7 fL Critically low 9.5-13.5 [facility] Comment on above: Performed By: #### C BC ####[facility] Wktibmswge1192 [place] [address]Dr. aGrima Pulliam PLT 184 103/ul Normal 150-450 [facility] Comment on above: Performed By: #### C BC ####[facility] Mcsxmadbwi2174 [place] [id number]. Garima Pulliam RBC 4.80 106/ul Normal 4.70-6.10 [facility] Comment on above: Performed By: #### C BC ####[facility] Aakvvrssbl1148 [place] [phone]. Garima Pulliam WBC 10.8 103/ul Normal 4.0-11.0 [facility] Comment on above: Performed By: #### C BC ####[facility] Ptooppifjt038[address] [place], [place] [address]Dr. Garima Pullaim Covid-19 PCR (CVDTB)on 10-24 SARS-CoV-2 (COVID-19) RNA MARIE+probe Ql (Unsp spec) Not detected Normal NOT DETECTED [facility] Comment on above: Result Comment: When [...] for this test is supported by the [employer] of Health and Human Service's declaration that [...] be used). Performed By: #### C VDTB ####[facility] Xoqcpfpncv[address] [place], [place] [address]Dr. Garima Pulliam INFLUENZA A AND B AGon 11-20 [facility] SEE BELOW Normal [facility] Comment on above: Result Comment: Nega tive for Flu A protein angiten. Infection due to Flu A cannot be ruled out. Flu A angiten in the sample may be below the detection limit of the test. Performed By: #### I NFLUAB ####[facility] Cafyrjdfog8[address] [place], [place] [address]Dr. Garima Pulliam INFLUBNEG SEE BELOW Normal [facility] Comment on above: Result Comment: Nega tive for Flu B protein antigen. Infection due to Flu B cannot be ruled out. Flu B antigen in the sample may be below the detection limit of the test. Performed By: #### I NFLUAB ####[facility] Ijpeujgttm[address] [place], [place] [address]Dr. Garima Pulliam INFLUENZA A AG Negative Normal NEGATIVE SEE COMMENT [facility] Comment on above: Performed By: #### I NFLUAB ####[facility] Jzqkarlnhz[address] [place], [place] [address]Dr. Garima Pulliam INFLUENZA B AG Negative Normal NEGATIVE SEE COMMENT [facility] Comment on above: Performed By: #### I NFLUAB ####[facility] Beyjaqmosy9[address] [place], [place] [address]Dr. Garima Pulliam PROF CHEM 8 (BAS METB)on Anion gap [Moles/Vol] 8.2 mmol/L Normal [facility] Comment on above: Performed By: #### B MP, HSTROPN, BNP ####[facility] Ljqktqruge5475 [place] [address]Dr. Garima Pulilam Calcium [Mass/Vol] 8.7 mg/dL Normal 8.5-10.1 [facility] Comment on above: Performed By: #### B MP, HSTROPN, BNP ####[facility] Dfxbcimxsj2109 [place] [address]Dr. Garima Pulliam Chloride [Moles/Vol] 103 mmol/L Normal 98-107 [facility] Comment on above: Performed By: #### B MP, HSTROPN, BNP ####[facility] Siefmvmygg5068 [place] [address]Dr. Garima Pulliam CO2 [Moles/Vol] 29.4 mmol/L Normal 21.0-32.0 [facility] Comment on above: Performed By: #### B MP, HSTROPN, BNP ####[facility] Stobxtafmu[address] [place], [place] [address]Dr. Garima Pulliam Creatinine [Mass/Vol] 0.69 mg/dL Critically low 0.70-1.30 [facility] Comment on above: Performed By: #### B MP, HSTROPN, BNP ####[facility] Offbtjmwuj7520 [place] [address]Dr. Garima Pulliam EGFR-AF CITIZ[place] >60 Normal >=60 The [facility] Comment on above: Performed By: #### B MP, HSTROPN, BNP ####[facility] Tswagxxqlb94[address] [place], [place] [address]Dr. Garima Pulliam EGFR-NON AF CITIZEN OF [place] >60 Normal >=60 [facility] Comment on above: Performed By: #### B MP, HSTROPN, BNP ####[facility] Rntgjqjfjx1114 [place] [address]Dr. Chpaisrenu Pulliam Glucose [Mass/Vol] 209 mg/dL Critically high 74-106 [facility] Comment on above: Performed By: #### B MP, HSTROPN, BNP ####[facility] Wuyjffytvq0036 [place] [address]Dr. Garima Pulliam Potassium [Moles/Vol] 3.6 mmol/L Normal 3.5-5.1 [facility] Comment on above: Performed By: #### B MP, HSTROPN, BNP ####[facility] Fftunnvrfa1611 [place] [address]Dr. Garima Pulliam Sodium [Moles/Vol] 137 mmol/L Normal 136-145 [facility] Comment on above: Performed By: #### B MP, HSTROPN, BNP ####[facility] Bjnhrzndzt1298 [place] [address]Dr. Garima Pulliam Urea nitrogen [Mass/Vol] 11.0 mg/dL Normal 7.0-18.0 [facility] Comment on above: Performed By: #### B MP, HSTROPN, BNP ####[facility] Tdxwjvdlgx7431 [place] [address]Dr. Garima Pulliam Urea nitrogen/Creatinine [Mass ratio] 15.9 mg/mg Normal [facility] Comment on above: Performed By: #### B MP, HSTROPN, BNP ####[facility] Njfquctggg6088 [place] [address]Dr. Garima Pulliam TROPONIN, HIGH SENSITIVITYon 11-20-2022 HSTROP 8.7 pg/mL Normal 4.0-76.1 [facility] Comment on above: Result Comment: CUT- OFF POINTS HAVE BEEN ESTABLISHED BASED ON THE FOURTH UNIVERSAL DEFINITIONS OF MYOCARDIALINFARCTION. THE UPPER REFERENCE LIMIT (URL) OF TROPONIN, DEFINED THE 99TH PERCENTILE OFcTnI DISTRIBUTION IN A REFERENCE POPULATION, HAS BEEN CONFIRMED THE DECISION THRESHOLDFOR PA DIAGNOSIS. Performed By: #### B MP, HSTROPN, BNP ####[facility] Edglhcgoji1620 [place] [address]Dr. Garima Pulliam XR CHEST 1 Von 11-20-2022 XR CHEST 1 V Normal [facility] XR CHEST 1 Von 10-02-2022 XR CHEST 1 V Normal [facility] BNPon 09-29-2022 Natriuretic peptide B (Bld) [Mass/Vol] 107.0 pg/mL Normal <=900.0 [facility] Comment on above: Performed By: #### C MP, BNP, CMADM ####[facility] Semlynejuw0390 [place] [address]Dr. Garima Pulliam CARDIAC NASH ADMITon 022 CK [Catalytic activity/Vol] 190 U/L Normal 39-308 [facility] Comment on above: Performed By: #### C MP, BNP, CMADM ####[facility] Ratbsreaic3784 [place] [address]Dr. Garima Pulliam CK.MB [Mass/Vol] 11.11 ng/mL Critically high <=3.60 [facility] Comment on above: Performed By: #### C MP, BNP, CMADM ####[facility] Plqcbvazjb8986 [place] [address]Dr. Garima Pulliam HSTROP 11.8 pg/mL Normal 4.0-76.1 [facility] Comment on above: Result Comment: CUT- OFF POINTS HAVE BEEN ESTABLISHED BASED ON THE FOURTH UNIVERSAL DEFINITIONS OF MYOCARDIALINFARCTION. THE UPPER REFERENCE LIMIT (URL) OF TROPONIN, DEFINED THE 99TH PERCENTILE OFcTnI DISTRIBUTION IN A REFERENCE POPULATION, HAS BEEN CONFIRMED THE DECISION THRESHOLDFOR PA DIAGNOSIS. Performed By: #### C MP, BNP, CMADM ####[facility] Ujvrnoddqq8239 [place] [address]Dr. Garima Pulliam DORIS 133 ng/mL Critically high 16-96 [facility] Comment on above: Performed By: #### C MP, BNP, CMADM ####[facility] Mendmgzzzi9661 [place] [address]Dr. Garima Pulliam CBC AUTO DIFFon 09-29-2022 BASO # 0.0 103/ul Normal 0.0-0.1 [facility] Comment on above: Performed By: #### C BC ####[facility] Qrbqotngfr2346 [place] [address]Dr. Garima Pulliam Basophils/100 WBC (Bld) 0.2 % Normal 0.2-2.0 The [facility] Comment on above: Performed By: #### C BC ####[facility] Xclcurwdok8235 [place] [address]Dr. Garima Pulliam EO # 0.1 103/ul Normal 0.0-0.7 [facility] Comment on above: Performed By: #### C BC ####[facility] Qvzbdmgdjj9323 [place] [address]Dr. Garima Pulliam Eosinophils/100 WBC (Bld) 1.4 % Normal 0.9-7.0 [facility] Comment on above: Performed By: #### C BC ####[facility] Hqztyemndy5510 [place] [address]Dr. Garima Pulliam Erythrocyte distribution width (RBC) [Ratio] 13.7 % Normal 11.0-15.0 [facility] Comment on above: Performed By: #### C BC ####[facility] Snarcohdtn[address] [place], [place] [address]Dr. Garima Pulliam Hematocrit (Bld) [Volume fraction] 45.4 % Normal 42.0-54.0 [facility] Comment on above: Performed By: #### C BC ####[facility] Pilkgpfjvh490[address] [place], [place] [address]Dr. Garima Pulliam Hemoglobin (Bld) [Mass/Vol] 14.8 g/dL Normal 14.0-18.0 [facility] Comment on above: Performed By: #### C BC ####[facility] Asljhqhdte186[address] [place], [place] [address]Dr. Garima Pulliam IG # 0.04 10e3/ul Critically high 0.00-0.03 [facility] Comment on above: Performed By: #### C BC ####[facility] Taikriaygt157[address] [place], [place] [address]Dr. Garima Heraclio IG % 0.5 % Normal 0.0-0.5 [facility] Comment on above: Performed By: #### C BC ####[facility] Afzcitmdlg[address] [place], [place] [address]DrAdalberto Pulliam LYMPH # 1.1 103/ul Critically low 1.2-3.8 [facility] Comment on above: Performed By: #### C BC ####[facility] Pbbuumjzgi5893 [place] [address]DrAdalberto Pulliam Lymphocytes/100 WBC (Bld) 12.7 % Critically low 20.5-60.0 [facility] Comment on above: Performed By: #### C BC ####[facility] Gucyfpqdiq9258 [place] [address]DrAdalberto Pulliam MANUAL DIFF REQ NO Normal [facility] Comment on above: Performed By: #### C BC ####[facility] Yjsmsdyecv8342 [place] [id number] Pulliam MCH (RBC) [Entitic mass] 30.0 pg Normal 25.9-34.0 [facility] Comment on above: Performed By: #### C BC ####[facility] Ulyrvgkfxb255[address] [place], [place] [address]Dr. Garima Pulliam MCHC (RBC) [Mass/Vol] 32.6 g/dL Normal 29.9-35.2 [facility] Comment on above: Performed By: #### C BC ####[facility] Kjkxncuodm[address] [place], [place] [address]DrAdalberto Pulliam MCV (RBC) [Entitic vol] 91.9 fL Normal 80.0-94.0 [facility] Comment on above: Performed By: #### C BC ####[facility] Bkgofwgawl5697 [place] [address]DrAdalberto Pulliam MONO # 0.4 103/ul Normal 0.3-0.8 [facility] Comment on above: Performed By: #### C BC ####[facility] Wviltccgsn[address] [place], [place] [address]DrAdalberto Pulliam Monocytes/100 WBC (Bld) 4.8 % Normal 1.7-12.0 [facility] Comment on above: Performed By: #### C BC ####[facility] Bxmrprokur[address] [place], [place] [address]DrAdalberto Pulliam NEUT # 7.1 103/ul Critically high 1.4-6.5 [facility] Comment on above: Performed By: #### C BC ####[facility] Lnpthskgfv6973 [place] [id number]. Garima Pulliam Neutrophils/100 WBC (Bld) 80.4 % Critically high 43.0-75.0 [facility] Comment on above: Performed By: #### C BC ####[facility] Qrownwdxpg3210 [place] [id number]. Garima Pulliam Platelet mean volume (Bld) [Entitic vol] 9.1 fL Critically low 9.5-13.5 [facility] Comment on above: Performed By: #### C BC ####[facility] Gdyckjqumd8982 [place] [phone]. Garima Pulliam PLT 200 103/ul Normal 150-450 [facility] Comment on above: Performed By: #### C BC ####[facility] Uccuautlke9670 [place] [phone]. Garima Pulliam RBC 4.94 106/ul Normal 4.70-6.10 [facility] Comment on above: Performed By: #### C BC ####[facility] Ljgmcptupf5310 [place] [phone]. Garima Pulliam WBC 8.9 103/ul Normal 4.0-11.0 [facility] Comment on above: Performed By: #### C BC ####[facility] Dlrdntsbam0338 [place] [phone]. Garima Pulliam [facility]on SARS-CoV-2 (COVID-19) RNA MARIE+probe Ql (Unsp spec) Not detected Normal NOT DETECTED [facility] Comment on above: Result Comment: When [...] for this test is supported by the [employer] of Health and Human Service's declaration that [...] be used). Performed By: #### C VDTBH ####[facility] Xpcdljgaww6120 [place] [address]Dr. Garima Pulliam LACTATE/LACTIC ACIDon 2021 Lactate [Moles/Vol] 1.7 mmol/L Normal 0.4-1.9 [facility] Comment on above: Performed By: #### L ACT ####[facility] Eqykkdnrsu[address] [place], [place] [address]Dr. Garima Pulliam PROF 14(COMP METB)on 022 Albumin [Mass/Vol] 3.8 g/dL Normal 3.4-5.0 [facility] Comment on above: Performed By: #### C MP, BNP, CMADM ####[facility] Bbophxupuz0455 [place] [address]Dr. Garima Pulliam Albumin/Globulin [Mass ratio] 1.5 {ratio} Normal [facility] Comment on above: Performed By: #### C MP, BNP, CMADM ####[facility] Gnzzghptcz[address] [place], [place] [address]Dr. Garima Pulliam ALP [Catalytic activity/Vol] 62 U/L Normal 46-116 [facility] Comment on above: Performed By: #### C MP, BNP, CMADM ####[facility] Bydkqlcwed5057 [place] [address]Dr. Garima Pulliam ALT [Catalytic activity/Vol] 37 U/L Normal 16-63 [facility] Comment on above: Performed By: #### C MP, BNP, CMADM ####[facility] Jcopwvgrnc8503 [place] [address]Dr. Garima Pulliam Anion gap [Moles/Vol] 8.0 mmol/L Normal [facility] Comment on above: Performed By: #### C MP, BNP, CMADM ####[facility] Aoockcghgc8586 [place] [address]Dr. Garima Pulliam AST [Catalytic activity/Vol] 20 U/L Normal 15-37 [facility] Comment on above: Performed By: #### C MP, BNP, CMADM ####[facility] Ykjzqsxvzd4173 [place] [address]Dr. Garima Pulliam Bilirubin [Mass/Vol] 0.6 mg/dL Normal 0.2-1.0 [facility] Comment on above: Performed By: #### C MP, BNP, CMADM ####[facility] Unwbuwlrux5180 [place] [address]Dr. Garima Pulliam Calcium [Mass/Vol] 9.1 mg/dL Normal 8.5-10.1 [facility] Comment on above: Performed By: #### C MP, BNP, CMADM ####[facility] Ykiotagoss3805 [place] [address]Dr. Garima Pulliam Chloride [Moles/Vol] 103 mmol/L Normal 98-107 [facility] Comment on above: Performed By: #### C MP, BNP, CMADM ####[facility] Nernppqwwc2547 [place] [address]Dr. Garima Pulliam CO2 [Moles/Vol] 31.8 mmol/L Normal 21.0-32.0 The [facility] Comment on above: Performed By: #### C MP, BNP, CMADM ####[facility] Glruidllpe4543 [place] [address]Dr. Garima Pulliam Creatinine [Mass/Vol] 0.63 mg/dL Critically low 0.70-1.30 [facility] Comment on above: Performed By: #### C MP, BNP, CMADM ####[facility] Pujklpogdv4068 [place] [address]Dr. Garima Pulliam EGFR-AF [place]IZ[place] >60 Normal >=60 [facility] Comment on above: Performed By: #### C MP, BNP, CMADM ####[facility] Ixtdyplbvb5623 [place] [phone]. Garima Pulliam EGFR-NON AF CITIZEN OF [place] >60 Normal >=60 [facility] Comment on above: Performed By: #### C MP, BNP, CMADM ####[facility] Dddnoccxgy8183 [place] [address]Dr. Garima Pulliam Globulin (S) [Mass/Vol] 2.6 g/dL Normal [facility] Comment on above: Performed By: #### C MP, BNP, CMADM ####[facility] Muulpgooeq1588 [place] [address]Dr. Garima Pulliam Glucose [Mass/Vol] 103 mg/dL Normal 74-106 The [facility] Comment on above: Performed By: #### C MP, BNP, CMADM ####[facility] Gksakyyyts6256 [place] [address]Dr. Garima Pulliam Potassium [Moles/Vol] 3.8 mmol/L Normal 3.5-5.1 [facility] Comment on above: Performed By: #### C MP, BNP, CMADM ####[facility] Gkkuscquvl3335 [place] [address]Dr. Garima Pulliam Protein [Mass/Vol] 6.4 g/dL Normal 6.4-8.2 [facility] Comment on above: Performed By: #### C MP, BNP, CMADM ####[facility] Raibxbfujk7868 [place] [address]Dr. Garima Pulliam Sodium [Moles/Vol] 139 mmol/L Normal 136-145 [facility] Comment on above: Performed By: #### C MP, BNP, CMADM ####[facility] Fxfdbvzufl6257 [place] [address]Dr. Garima Pulliam Urea nitrogen [Mass/Vol] 7.0 mg/dL Normal 7.0-18.0 [facility] Comment on above: Performed By: #### C MP, BNP, CMADM ####[facility] Tebevutcul5177 [place] [address]Dr. Garima Pulliam Urea nitrogen/Creatinine [Mass ratio] 11.1 mg/mg Normal [facility] Comment on above: Performed By: #### C MP, BNP, CMADM ####[facility] Thcehtleae1092 [place] [address]Dr. Chapisrenu Pulliam PROTIMEon 09-29-2022 INR Coag (PPP) [Relative time] 1.14 {INR} Normal [facility] Comment on above: Performed By: #### P T, PTT ####[facility] Eostesmklu[address] [place], [place] [address]Dr. Garima Pulliam INR GUIDELINES SEE BELOW Normal The [facility] Comment on above: Result Comment: WESLEY RED INR: 2.0 - 3.0 CONDITIONS NOT LISTED BELOW 2.5 - 3.5 FOR PROSTHETIC HEART VALVE REPLACEMENT 2.5 - 3.5 RECURRENT THROMBOSIS Performed By: #### P T, PTT ####[facility] Nerjembkse022[address] [place], [place] [address]Dr. Garima Pulliam PT Coag (PPP) [Time] 12.2 s Critically high 9.0-11.6 [facility] Comment on above: Performed By: #### P T, PTT ####[facility] Bttornstfh240[address] [place], [place] [address]Dr. Garima Pulliam PTTon 09-29-2022 aPTT Coag (Bld) [Time] 29.3 s Normal 22.3-36.2 [facility] Comment on above: Performed By: #### P T, PTT ####[facility] Yvgbgjmnvd206[address] [place], [place] [address]Dr. Garima Pulliam XR CHEST 1 Von 09-29-2022 XR CHEST 1 V Normal [facility] CBC AUTO DIFFon 09-26-2022 BASO # 0.0 103/ul Normal 0.0-0.1 [facility] Comment on above: Performed By: #### C BC ####[facility] Ntsyyfezqg032[address] [place], [place] [address]Dr. Garima Pulliam Basophils/100 WBC (Bld) 0.2 % Normal 0.2-2.0 [facility] Comment on above: Performed By: #### C BC ####[facility] Dgvsokrnnw6598 [place] [address]Dr. Garima Pulliam EO # 0.1 103/ul Normal 0.0-0.7 [facility] Comment on above: Performed By: #### C BC ####[facility] Oisdtdgrxy306[address] [place], [place] [address]Dr. Garima Pulliam Eosinophils/100 WBC (Bld) 1.0 % Normal 0.9-7.0 [facility] Comment on above: Performed By: #### C BC ####[facility] Hbwlnvqgjk618[address] [place], [place] [address]Dr. Garima Pulliam Erythrocyte distribution width (RBC) [Ratio] 13.4 % Normal 11.0-15.0 [facility] Comment on above: Performed By: #### C BC ####[facility] Dielqygiyh[address] [place], [place] [address]Dr. Garima Pulliam Hematocrit (Bld) [Volume fraction] 46.3 % Normal 42.0-54.0 [facility] Comment on above: Performed By: #### C BC ####[facility] Amsgeuduay424[address] [place], [place] [address]Dr. Garima Pulliam Hemoglobin (Bld) [Mass/Vol] 15.3 g/dL Normal 14.0-18.0 [facility] Comment on above: Performed By: #### C BC ####[facility] Bvwtmdxhhx[address] [place], [place] [address]Dr. Garima Pulliam IG # 0.05 10e3/ul Critically high 0.00-0.03 The [facility] Comment on above: Performed By: #### C BC ####[facility] Gxcgqcoxdk78[address] [place], [place] [address]Dr. Garima Pulliam IG % 0.4 % Normal 0.0-0.5 [facility] Comment on above: Performed By: #### C BC ####[facility] Cbmvjndlom[address] [place], [place] [address]Dr. Garima Pulliam LYMPH # 1.7 103/ul Normal 1.2-3.8 [facility] Comment on above: Performed By: #### C BC ####[facility] Zrpkhujcxm6312 [place] [address]Dr. Chapisrenu Pulliam Lymphocytes/100 WBC (Bld) 12.7 % Critically low 20.5-60.0 [facility] Comment on above: Performed By: #### C BC ####[facility] Pzkswthsma6776 [place] [address]Dr. Chapisrenu Pulliam MANUAL DIFF REQ NO Normal [facility] Comment on above: Performed By: #### C BC ####[facility] Tzfbyizhvz3324 [place] [address]Dr. Garima Pulliam MCH (RBC) [Entitic mass] 30.1 pg Normal 25.9-34.0 [facility] Comment on above: Performed By: #### C BC ####[facility] Qczmxkowii[address] [place], [place] [address]Dr. Garima Pulliam MCHC (RBC) [Mass/Vol] 33.0 g/dL Normal 29.9-35.2 [facility] Comment on above: Performed By: #### C BC ####[facility] Ynijbwwono[address] [place], [place] [address]Dr. Garima Pulliam MCV (RBC) [Entitic vol] 91.1 fL Normal 80.0-94.0 The [facility] Comment on above: Performed By: #### C BC ####[facility] Fuscbypqyr[address] [place], [place] [address]Dr. Garima Pulliam MONO # 0.9 103/ul Critically high 0.3-0.8 The [facility] Comment on above: Performed By: #### C BC ####[facility] Bucwbylecc[address] [place], [place] [address]Dr. Garima Pulliam Monocytes/100 WBC (Bld) 7.0 % Normal 1.7-12.0 The [facility] Comment on above: Performed By: #### C BC ####[facility] Xxisnkmjav[address] [place], [place] [address]Dr. Garima Pulliam NEUT # 10.4 103/ul Critically high 1.4-6.5 The [facility] Comment on above: Performed By: #### C BC ####[facility] Ovzegwegeo[address] [place] [address]Dr. Garima Pulliam Neutrophils/100 WBC (Bld) 78.7 % Critically high 43.0-75.0 [facility] Comment on above: Performed By: #### C BC ####[facility] Kcvdtmwkzo36[address] [place] [address]Dr. Garima Pulliam Platelet mean volume (Bld) [Entitic vol] 8.9 fL Critically low 9.5-13.5 The [facility] Comment on above: Performed By: #### C BC ####[facility] Yrrhijfrcu7[address] [place] [address]Dr. Garima Pulliam PLT 195 103/ul Normal 150-450 [facility] Comment on above: Performed By: #### C BC ####[facility] Guocwmuszw76[address] [place] [address]Dr. Garima Pulliam RBC 5.08 106/ul Normal 4.70-6.10 The [facility] Comment on above: Performed By: #### C BC ####[facility] Rcjfjolcho3[address] [place] [address]Dr. Garima Pulliam WBC 13.2 103/ul Critically high 4.0-11.0 The [facility] Comment on above: Performed By: #### C BC ####[facility] Omwbolgltv5026 [place] [address]Dr. Garima Pulliam PROF 14(COMP METB)on 022 Albumin [Mass/Vol] 3.5 g/dL Normal 3.4-5.0 [facility] Comment on above: Performed By: #### C DAIVD HSTROPN ####[facility] Sxbrdybmsw16[address] [place] [id number]. Garima Pulliam Albumin/Globulin [Mass ratio] 1.2 {ratio} Normal The [facility] Comment on above: Performed By: #### C DAVID, HSTROPN ####[facility] Qzppucbkhg9434 [place] [phone]. Garima Pulliam ALP [Catalytic activity/Vol] 71 U/L Normal 46-116 The [facility] Comment on above: Performed By: #### C DAVID, HSTROPN ####[facility] Qduvuzhzim84[address] [place] [address]Dr. Garima Pulliam ALT [Catalytic activity/Vol] 37 U/L Normal 16-63 [facility] Comment on above: Performed By: #### C MP, HSTROPN ####[facility] Vruobxtexc9586 [place] [address]Dr. Garima Pulliam Anion gap [Moles/Vol] 4.8 mmol/L Normal [facility] Comment on above: Performed By: #### C MP, HSTROPN ####[facility] Lgejtejhce1560 [place] [address]Dr. Garima Pulliam AST [Catalytic activity/Vol] 21 U/L Normal 15-37 [facility] Comment on above: Performed By: #### C DAVID, HSTROPN ####[facility] Hcifmoyzsv[address] [place], [place] [address]Dr. Garima Pulliam Bilirubin [Mass/Vol] 0.3 mg/dL Normal 0.2-1.0 [facility] Comment on above: Performed By: #### C DAVID, HSTROPN ####[facility] Zhvjldnads[address] [place], [place] [address]Dr. Garima Pulliam Calcium [Mass/Vol] 8.9 mg/dL Normal 8.5-10.1 [facility] Comment on above: Performed By: #### C DAVID, HSTROPN ####[facility] Ssmweovgky[address] [place], [place] [address]Dr. Garima Pulliam Chloride [Moles/Vol] 106 mmol/L Normal 98-107 [facility] Comment on above: Performed By: #### C MP, HSTROPN ####[facility] Glssbglopp[address] [place], [place] [address]Dr. Garima Pulliam CO2 [Moles/Vol] 29.8 mmol/L Normal 21.0-32.0 [facility] Comment on above: Performed By: #### C MP, HSTROPN ####[facility] Fgmopjrvjt[address] [place], [place] [address]Dr. Yilan Pulliam Creatinine [Mass/Vol] 0.68 mg/dL Critically low 0.70-1.30 [facility] Comment on above: Performed By: #### C DAVID, HSTROPN ####[facility] Uxkyyhuykh[address] [place] [address]Dr. Garima Pulliam EGFR-AF CITIZEN [place] >60 Normal >=60 [facility] Comment on above: Performed By: #### C DAVID, HSTROPN ####[facility] Twrlofmrwu06[address] [place] [address]Dr. Garima Pulliam EGFR-NON AF CITIZEN OF [place] >60 Normal >=60 [facility] Comment on above: Performed By: #### C DAVID, HSTROPN ####[facility] Ugbcqpurjj4064 [place] [address]Dr. Garima Pulliam Globulin (S) [Mass/Vol] 2.8 g/dL Normal [facility] Comment on above: Performed By: #### C DAVID, HSTROPN ####[facility] Rtbztgepam8602 [place] [address]Dr. Garima Pulliam Glucose [Mass/Vol] 133 mg/dL Critically high 74-106 [facility] Comment on above: Performed By: #### C DAVID, HSTROPN ####[facility] Hmgqoimmca7044 [place] [address]Dr. Garima Pulliam Potassium [Moles/Vol] 3.6 mmol/L Normal 3.5-5.1 [facility] Comment on above: Performed By: #### C DAVID, HSTROPN ####[facility] Mgkaqoburg7341 [place] [address]Dr. Garima Pulliam Protein [Mass/Vol] 6.3 g/dL Critically low 6.4-8.2 Th [facility] Comment on above: Performed By: #### C DAVID, HSTROPN ####[facility] Pdlalwhsfd5949 [place] [address]Dr. Garima Pulliam Sodium [Moles/Vol] 137 mmol/L Normal 136-145 [facility] Comment on above: Performed By: #### C DAVID, HSTROPN ####[facility] Rkpgwijktr9851 [place] [id number]. Garima Pulliam Urea nitrogen [Mass/Vol] 15.0 mg/dL Normal 7.0-18.0 The [facility] Comment on above: Performed By: #### C MP, HSTROPN ####[facility] Sotdcwbnon7879 [place] [phone]. Garima Pulliam Urea nitrogen/Creatinine [Mass ratio] 22.1 mg/mg Normal The [facility] Comment on above: Performed By: #### C MP, HSTROPN ####[facility] Rtvvqmtvac0628 [place] [id number]. Garima Pulliam TROPONIN, HIGH SENSITIVITYon 09-26-2022 HSTROP 12.8 pg/mL Normal 4.0-76.1 The [facility] Comment on above: Result Comment: CUT- OFF POINTS HAVE BEEN ESTABLISHED BASED ON THE FOURTH UNIVERSAL DEFINITIONS OF MYOCARDIALINFARCTION. THE UPPER REFERENCE LIMIT (URL) OF TROPONIN, DEFINED THE 99TH PERCENTILE OFcTnI DISTRIBUTION IN A REFERENCE POPULATION, HAS BEEN CONFIRMED THE DECISION THRESHOLDFOR PA DIAGNOSIS. Performed By: #### C MP, HSTROPN ####[facility] Iociohcdlo9[address] [place] [address]Dr. Garima Pulliam XR CHEST 1 Von 09-26-2022 XR CHEST 1 V Normal The [facility] XR CHEST 1 Von 09-16-2022 XR CHEST 1 V Normal The [facility] CBC AUTO DIFFon 09-15-2022 BASO # 0.0 103/ul Normal 0.0-0.1 The [facility] Comment on above: Performed By: #### C BC ####[facility] Croppiaejs3217 [place] [id number]. Garima Heraclio Basophils/100 WBC (Bld) 0.1 % Critically low 0.2-2.0 The [facility] Comment on above: Performed By: #### C BC ####[facility] Ktulpbynzp2913 [place] [phone]. Garima Heraclio EO # 0.0 103/ul Normal 0.0-0.7 [facility] Comment on above: Performed By: #### C BC ####[facility] Tkpabxzmco4675 [place] [phone]. aGrima Pulliam Eosinophils/100 WBC (Bld) 0.1 % Critically low 0.9-7.0 [facility] Comment on above: Performed By: #### C BC ####[facility] Clmqzadwxw7423 [place] [address]Dr. Garima Pulliam Erythrocyte distribution width (RBC) [Ratio] 14.1 % Normal 11.0-15.0 [facility] Comment on above: Performed By: #### C BC ####[facility] Nsifjojunq[address] [place], [place] [address]Dr. Garima Pulliam Hematocrit (Bld) [Volume fraction] 46.1 % Normal 42.0-54.0 [facility] Comment on above: Performed By: #### C BC ####[facility] Qzrswdfbnm[address] [place], [place] [address]Dr. Garima Pulliam Hemoglobin (Bld) [Mass/Vol] 15.0 g/dL Normal 14.0-18.0 [facility] Comment on above: Performed By: #### C BC ####[facility] Sjsqskwsna[address] [place], [place] [address]Dr. Garima Pulliam IG # 0.03 10e3/ul Normal 0.00-0.03 [facility] Comment on above: Performed By: #### C BC ####[facility] Otmspzhggq[address] [place], [place] [address]Dr. Garima Pulliam IG % 0.3 % Normal 0.0-0.5 The [facility] Comment on above: Performed By: #### C BC ####[facility] Msnpocojbq8[address] [place], [place] [address]Dr. Garima Pulliam LYMPH # 0.6 103/ul Critically low 1.2-3.8 The [facility] Comment on above: Performed By: #### C BC ####[facility] Cbbsxwjojw814[address] [place], [place] [address]Dr. Garima Pulliam Lymphocytes/100 WBC (Bld) 5.8 % Critically low 20.5-60.0 [facility] Comment on above: Performed By: #### C BC ####[facility] Bcgmrevtsn2281 [place] [phone]. Garima Pulliam MANUAL DIFF REQ NO Normal [facility] Comment on above: Performed By: #### C BC ####[facility] Coxyoxfxer0878 [place] [phone]. Garima Pulliam MCH (RBC) [Entitic mass] 30.2 pg Normal 25.9-34.0 [facility] Comment on above: Performed By: #### C BC ####[facility] Esdcesdbtw4745 [place] [phone]. Garima Pulliam MCHC (RBC) [Mass/Vol] 32.5 g/dL Normal 29.9-35.2 [facility] Comment on above: Performed By: #### C BC ####[facility] Begmfigugr8[address] [place], [place] [address]Dr. Garima Pulliam MCV (RBC) [Entitic vol] 92.8 fL Normal 80.0-94.0 [facility] Comment on above: Performed By: #### C BC ####[facility] Yelxtmjtds[address] [place], [place] [address]Dr. Garima Pulliam MONO # 0.3 103/ul Normal 0.3-0.8 [facility] Comment on above: Performed By: #### C BC ####[facility] Kxzxpbbsjg[address] [place], [place] [address]Dr. Garima Pulliam Monocytes/100 WBC (Bld) 3.2 % Normal 1.7-12.0 The [facility] Comment on above: Performed By: #### C BC ####[facility] Yqiagzjnza[address] [place], [place] [address]Dr. Garima Pulliam NEUT # 9.8 103/ul Critically high 1.4-6.5 The [facility] Comment on above: Performed By: #### C BC ####[facility] Jffijjjbob[address] [place], [place] [address]Dr. Garima Pulliam Neutrophils/100 WBC (Bld) 90.5 % Critically high 43.0-75.0 [facility] Comment on above: Performed By: #### C BC ####[facility] Bxdaauffdc4362 [place] [address]Dr. Garima Pulliam Platelet mean volume (Bld) [Entitic vol] 9.4 fL Critically low 9.5-13.5 [facility] Comment on above: Performed By: #### C BC ####[facility] Fardlgfcdx2449 [place] [address]Dr. Garima Pulliam PLT 208 103/ul Normal 150-450 [facility] Comment on above: Performed By: #### C BC ####[facility] Zwizviknfa[address] [place], [place] [address]Dr. Garima Pulliam RBC 4.97 106/ul Normal 4.70-6.10 [facility] Comment on above: Performed By: #### C BC ####[facility] Zvxyvclkdl[address] [place], [place] [address]Dr. Garima Pulliam WBC 10.8 103/ul Normal 4.0-11.0 [facility] Comment on above: Performed By: #### C BC ####[facility] Fubrcnrgkd[address] [place], [place] [address]Dr. Garima Pulliam PROF 14(COMP METB)on 022 Albumin [Mass/Vol] 4.0 g/dL Normal 3.4-5.0 [facility] Comment on above: Performed By: #### C MP ####[facility] Azpbchetdk[address] [place], [place] [address]Dr. Garima Pulliam Albumin/Globulin [Mass ratio] 1.5 {ratio} Normal [facility] Comment on above: Performed By: #### C MP ####[facility] Gwoeytbzas[address] [place], [place] [address]Dr. Garima Pulliam ALP [Catalytic activity/Vol] 73 U/L Normal 46-116 [facility] Comment on above: Performed By: #### C MP ####[facility] Klmqubfsmm9[address] [place], [place] [address]Dr. Garima Pulliam ALT [Catalytic activity/Vol] 42 U/L Normal 16-63 [facility] Comment on above: Performed By: #### C MP ####[facility] Mbwjmmvssc8599 [place] [address]Dr. Garima Pulliam Anion gap [Moles/Vol] 9.1 mmol/L Normal [facility] Comment on above: Performed By: #### C MP ####[facility] Txopfdehfv4196 [place] [address]Dr. Garima Pulliam AST [Catalytic activity/Vol] 28 U/L Normal 15-37 [facility] Comment on above: Performed By: #### C MP ####[facility] Jbzkpcwixu0277 [place] [address]Dr. Garima Pulliam Bilirubin [Mass/Vol] 0.6 mg/dL Normal 0.2-1.0 [facility] Comment on above: Performed By: #### C MP ####[facility] Omkrmkgcqg158[address] [place], [place] [address]Dr. Garima Pulliam Calcium [Mass/Vol] 8.6 mg/dL Normal 8.5-10.1 [facility] Comment on above: Performed By: #### C MP ####[facility] Xsqxpwbmsi[address] [place], [place] [address]Dr. Garima Pulliam Chloride [Moles/Vol] 105 mmol/L Normal 98-107 [facility] Comment on above: Performed By: #### C MP ####[facility] Vqteonlobg189[address] [place], [place] [address]Dr. Garima Pulliam CO2 [Moles/Vol] 28.5 mmol/L Normal 21.0-32.0 The [facility] Comment on above: Performed By: #### C MP ####[facility] Bfkambgycm9[address] [place], [place] [address]Dr. Garima Pulliam Creatinine [Mass/Vol] 0.78 mg/dL Normal 0.70-1.30 [facility] Comment on above: Performed By: #### C MP ####[facility] Nitvebpjpu0945 [place] [address]Dr. Garima Pulliam EGFR-AF [place]IZ[place] >60 Normal >=60 The [facility] Comment on above: Performed By: #### C MP ####[facility] Shmlfngzux4157 [place] [address]Dr. Garima Pulliam EGFR-NON AF CITIZEN OF [place] >60 Normal >=60 [facility] Comment on above: Performed By: #### C MP ####[facility] Fpyvhjmyoj0236 [place] [address]Dr. Garima Pulliam Globulin (S) [Mass/Vol] 2.7 g/dL Normal [facility] Comment on above: Performed By: #### C MP ####[facility] Etuyllbgiy2134 [place] [address]Dr. Garima Pulliam Glucose [Mass/Vol] 220 mg/dL Critically high 74-106 [facility] Comment on above: Performed By: #### C MP ####[facility] Rbunvrikwg[address] [place], [place] [address]Dr. Garima Pulliam Potassium [Moles/Vol] 3.6 mmol/L Normal 3.5-5.1 [facility] Comment on above: Performed By: #### C MP ####[facility] Bdqiarfymk[address] [place], [place] [address]Dr. Garima Pulliam Protein [Mass/Vol] 6.7 g/dL Normal 6.4-8.2 The [facility] Comment on above: Performed By: #### C MP ####[facility] Vzfmhmctqg7[address] [place], [place] [address]Dr. Garima Pulliam Sodium [Moles/Vol] 139 mmol/L Normal 136-145 The [facility] Comment on above: Performed By: #### C MP ####[facility] Xvsuceilns[address] [place], [place] [address]Dr. Garima Pulliam Urea nitrogen [Mass/Vol] 11.0 mg/dL Normal 7.0-18.0 [facility] Comment on above: Performed By: #### C MP ####[facility] Egqxmlfret[address] [place], [place] [address]Dr. Garima Pulliam Urea nitrogen/Creatinine [Mass ratio] 14.1 mg/mg Normal [facility] Comment on above: Performed By: #### C MP ####[facility] Jrprbsseqi020[address] [place], [place] [address]Dr. Garima Pulliam CARDIAC NASH 3-6on 2 CK [Catalytic activity/Vol] 240 U/L Normal 39-308 [facility] Comment on above: Performed By: #### C MREP ####[facility] Qgilwivnlt3311 [place], [place] [address]Ax. Garima Pulliam CK.MB [Mass/Vol] 10.38 ng/mL Critically high <=3.60 [facility] Comment on above: Performed By: #### C MREP ####[facility] Ivpxrabeag5078 [place] [phone]. Garima Pulliam HSTROP 18.5 pg/mL Normal 4.0-76.1 [facility] Comment on above: Result Comment: CUT- OFF POINTS HAVE BEEN ESTABLISHED BASED ON THE FOURTH UNIVERSAL DEFINITIONS OF MYOCARDIALINFARCTION. THE UPPER REFERENCE LIMIT (URL) OF TROPONIN, DEFINED THE 99TH PERCENTILE OFcTnI DISTRIBUTION IN A REFERENCE POPULATION, HAS BEEN CONFIRMED THE DECISION THRESHOLDFOR PA DIAGNOSIS. Performed By: #### C MREP ####[facility] Jptqtsngje8991 [place] [phone]. aGrima Pulliam CK [Catalytic activity/Vol] 257 U/L Normal 39-308 [facility] Comment on above: Performed By: #### C MREP ####[facility] Ahfaqatsco1247 [place] [phone]. Garima Pulliam CK.MB [Mass/Vol] 9.89 ng/mL Critically high <=3.60 [facility] Comment on above: Performed By: #### C MREP ####[facility] Xvbfbksmei1380 [place] [phone]. Garima Pulliam HSTROP 16.9 pg/mL Normal 4.0-76.1 [facility] Comment on above: Result Comment: CUT- OFF POINTS HAVE BEEN ESTABLISHED BASED ON THE FOURTH UNIVERSAL DEFINITIONS OF MYOCARDIALINFARCTION. THE UPPER REFERENCE LIMIT (URL) OF TROPONIN, DEFINED THE 99TH PERCENTILE OFcTnI DISTRIBUTION IN A REFERENCE POPULATION, HAS BEEN CONFIRMED THE DECISION THRESHOLDFOR PA DIAGNOSIS. Performed By: #### C MREP ####[facility] Vlxtpyijgz8326 [place] [address]Dr. Garima Pulliam CBC AUTO DIFFon 09-13-2022 BASO # 0.0 103/ul Normal 0.0-0.1 [facility] Comment on above: Performed By: #### C BC ####[facility] Xagyshcdcq124[address] [place], [place] [address]Dr. Chapisrenu Pulliam Basophils/100 WBC (Bld) 0.1 % Critically low 0.2-2.0 [facility] Comment on above: Performed By: #### C BC ####[facility] Heiwmrtqel[address] [place], [place] [address]Dr. Chapisrenu Pulliam EO # 0.0 103/ul Normal 0.0-0.7 [facility] Comment on above: Performed By: #### C BC ####[facility] Hptbmsaucl[address] [place], [place] [address]Dr. Chapisrenu Pulliam Eosinophils/100 WBC (Bld) 0.0 % Critically low 0.9-7.0 [facility] Comment on above: Performed By: #### C BC ####[facility] Xnpnnxxuah[address] [place], [place] [address]Dr. Chapisrenu Pulliam Erythrocyte distribution width (RBC) [Ratio] 13.6 % Normal 11.0-15.0 [facility] Comment on above: Performed By: #### C BC ####[facility] Ltymcaucvc[address] [place], [place] [address]Dr. Garima Pulliam Hematocrit (Bld) [Volume fraction] 48.2 % Normal 42.0-54.0 [facility] Comment on above: Performed By: #### C BC ####[facility] Mrxjkbygex[address] [place], [place] [address]Dr. Chapisrenu Pulliam Hemoglobin (Bld) [Mass/Vol] 16.0 g/dL Normal 14.0-18.0 [facility] Comment on above: Performed By: #### C BC ####[facility] Mjpbpmejym7[address] [place], [place] [address]Dr. Garima Pulliam IG # 0.02 10e3/ul Normal 0.00-0.03 [facility] Comment on above: Performed By: #### C BC ####[facility] Yqjkezhtnv8614 [place] [id number]. Garima Pulliam IG % 0.3 % Normal 0.0-0.5 [facility] Comment on above: Performed By: #### C BC ####[facility] Javrmcugby7546 [place] [phone]. Garima Heraclio LYMPH # 0.5 103/ul Critically low 1.2-3.8 [facility] Comment on above: Performed By: #### C BC ####[facility] Rtugzwtqro2632 [place] [phone]. Chapisrenu Pulliam Lymphocytes/100 WBC (Bld) 7.7 % Critically low 20.5-60.0 [facility] Comment on above: Performed By: #### C BC ####[facility] Wkczdrtryk7797 [place] [address]Dr. Garima Pulliam MANUAL DIFF REQ NO Normal [facility] Comment on above: Performed By: #### C BC ####[facility] Rqkbttaeek4094 [place] [phone]. Garima Pulliam MCH (RBC) [Entitic mass] 30.6 pg Normal 25.9-34.0 [facility] Comment on above: Performed By: #### C BC ####[facility] Yutlvlwsto7804 [place] [phone]. Garima Heraclio MCHC (RBC) [Mass/Vol] 33.2 g/dL Normal 29.9-35.2 [facility] Comment on above: Performed By: #### C BC ####[facility] Gplqdmqdvi9799 [place] [phone]. Garima Pulliam MCV (RBC) [Entitic vol] 92.2 fL Normal 80.0-94.0 [facility] Comment on above: Performed By: #### C BC ####[facility] Bfessoqzuw[address] [place], [place] [address]Dr. Garima Pulliam MONO # 0.0 103/ul Critically low 0.3-0.8 [facility] Comment on above: Performed By: #### C BC ####[facility] Gmqoyfnayv7468 [place] [phone]. Garima Pulliam Monocytes/100 WBC (Bld) 0.4 % Critically low 1.7-12.0 [facility] Comment on above: Performed By: #### C BC ####[facility] Jfzpmnqwki0581 [place] [phone]. Garima Pulliam NEUT # 6.2 103/ul Normal 1.4-6.5 [facility] Comment on above: Performed By: #### C BC ####[facility] Xmkwmgppzy3801 [place] [address]Dr. Garima Pulliam Neutrophils/100 WBC (Bld) 91.5 % Critically high 43.0-75.0 [facility] Comment on above: Performed By: #### C BC ####[facility] Zukrfooylr3765 [place] [address]Dr. Garima Pulliam Platelet mean volume (Bld) [Entitic vol] 8.7 fL Critically low 9.5-13.5 [facility] Comment on above: Performed By: #### C BC ####[facility] Mpbftsgazl[address] [place], [place] [address]Dr. Garima Pulliam PLT 179 103/ul Normal 150-450 [facility] Comment on above: Performed By: #### C BC ####[facility] Uwtnxujoub2706 [place] [phone]. Garima Pulliam RBC 5.23 106/ul Normal 4.70-6.10 [facility] Comment on above: Performed By: #### C BC ####[facility] Wixyugyhuo0715 [place] [phone]. Garima Pulliam WBC 6.7 103/ul Normal 4.0-11.0 [facility] Comment on above: Performed By: #### C BC ####[facility] Tmnkqzikzg[address] [place], [place] [address]DrAdalberto Garima Heraclio PROF CHEM 8 (BAS METB)on Anion gap [Moles/Vol] 12.1 mmol/L Normal Th [facility] Comment on above: Performed By: #### B MP ####[facility] Ppcjgncrtf9391 [place] [address]Dr. Garima Pulliam Calcium [Mass/Vol] 8.7 mg/dL Normal 8.5-10.1 [facility] Comment on above: Performed By: #### B MP ####[facility] Gmlfsmgpbe0877 [place] [phone]. Garima Pulliam Chloride [Moles/Vol] 105 mmol/L Normal 98-107 [facility] Comment on above: Performed By: #### B MP ####[facility] Bdmymeuvvn3403 [place] [address]Dr. Garima Pulliam CO2 [Moles/Vol] 25.5 mmol/L Normal 21.0-32.0 [facility] Comment on above: Performed By: #### B MP ####[facility] Pvqfwgdynb[address] [place], [place] [address]Dr. Garima Pulliam Creatinine [Mass/Vol] 0.63 mg/dL Critically low 0.70-1.30 [facility] Comment on above: Performed By: #### B MP ####[facility] Awfxtxygvc7894 [place] [address]Dr. Garima Pulliam EGFR-AF CITIZEN [place] >60 Normal >=60 [facility] Comment on above: Performed By: #### B MP ####[facility] [address] [place] [address]Dr. Garima Pulliam EGFR-NON AF CITIZEN OF [place] >60 Normal >=60 [facility] Comment on above: Performed By: #### B MP ####[facility] [address] [place] [address]Dr. Garima Pulliam Glucose [Mass/Vol] 162 mg/dL Critically high 74-106 [facility] Comment on above: Performed By: #### B MP ####[facility] [address] [place] [address]Dr. Garima Pulliam Potassium [Moles/Vol] 3.6 mmol/L Normal 3.5-5.1 [facility] Comment on above: Performed By: #### B MP ####[facility] [address] [place] [id number]. Garima Pulliam Sodium [Moles/Vol] 139 mmol/L Normal 136-145 [facility] Comment on above: Performed By: #### B MP ####[facility] T[address]wicdxcp[address] [place] [id number]. Garima Heraclio Urea nitrogen [Mass/Vol] 9.0 mg/dL Normal 7.0-18.0 [facility] Comment on above: Performed By: #### B MP ####[facility] [address]rx[address] [place] [id number]. Garima Pulliam Urea nitrogen/Creatinine [Mass ratio] 14.3 mg/mg Normal [facility] Comment on above: Performed By: #### B DAVID ####[facility] Q[address]rak[address]kg[address] [place] [address]Dr. Garima Pulliam CARDIAC NASH ADMITon 022 CK [Catalytic activity/Vol] 304 U/L Normal 39-308 [facility] Comment on above: Performed By: #### B DAVID, NANCY ####[facility] Q[address] [place] [id number]. Garima Pulliam CK.MB [Mass/Vol] 11.81 ng/mL Critically high <=3.60 [facility] Comment on above: Performed By: #### B DAVID, NANCY ####[facility] [address] [place] [address]Dr. Chapisrenu Pulliam HSTROP 13.3 pg/mL Normal 4.0-76.1 [facility] Comment on above: Result Comment: CUT- OFF POINTS HAVE BEEN ESTABLISHED BASED ON THE FOURTH UNIVERSAL DEFINITIONS OF MYOCARDIALINFARCTION. THE UPPER REFERENCE LIMIT (URL) OF TROPONIN, DEFINED THE 99TH PERCENTILE OFcTnI DISTRIBUTION IN A REFERENCE POPULATION, HAS BEEN CONFIRMED THE DECISION THRESHOLDFOR PA DIAGNOSIS. Performed By: #### B DAVID, CMADM ####[facility] [address] [place] [address]Dr. Garima Pulliam DORIS 133 ng/mL Critically high 16-96 [facility] Comment on above: Performed By: #### B ERVIN HERNANDEZDM ####[facility] [address]tsres[address] [place] [id number]. Garima Heraclio CBC AUTO DIFFon 09-12-2022 BASO # 0.0 103/ul Normal 0.0-0.1 [facility] Comment on above: Performed By: #### C BC ####[facility] [address] [place] [id number]. Chapisrenu Pulliam Basophils/100 WBC (Bld) 0.2 % Normal 0.2-2.0 [facility] Comment on above: Performed By: #### C BC ####[facility] [address] [place], [place] [address]Dr. Chapisrenu Pulliam EO # 0.2 103/ul Normal 0.0-0.7 [facility] Comment on above: Performed By: #### C BC ####[facility] [address] [place], [place] [address]Dr. Chapisrenu Pulliam Eosinophils/100 WBC (Bld) 1.3 % Normal 0.9-7.0 [facility] Comment on above: Performed By: #### C BC ####[facility] [address] [place], [place] [address]Dr. Garima Heraclio Erythrocyte distribution width (RBC) [Ratio] 13.7 % Normal 11.0-15.0 [facility] Comment on above: Performed By: #### C BC ####[facility] [address] [place], [place] [address]Dr. Garima Heraclio Hematocrit (Bld) [Volume fraction] 46.4 % Normal 42.0-54.0 [facility] Comment on above: Performed By: #### C BC ####[facility] Rxqv[address] [place], [place] [address]Dr. Chapisrenu Pulliam Hemoglobin (Bld) [Mass/Vol] 15.7 g/dL Normal 14.0-18.0 [facility] Comment on above: Performed By: #### C BC ####[facility] [address] [place], [place] [address]Dr. Garima Pulliam IG # 0.04 10e3/ul Critically high 0.00-0.03 [facility] Comment on above: Performed By: #### C BC ####[facility] [address] [place] [id number] Chapisrenu Pulliam IG % 0.3 % Normal 0.0-0.5 [facility] Comment on above: Performed By: #### C BC ####[facility] [address] [place] [id number] Pulliam LYMPH # 1.7 103/ul Normal 1.2-3.8 [facility] Comment on above: Performed By: #### C BC ####[facility] [address] [place] [id number] Pulliam Lymphocytes/100 WBC (Bld) 11.5 % Critically low 20.5-60.0 [facility] Comment on above: Performed By: #### C BC ####[facility] [address] [place] [address]DrAdalberto Pulliam MANUAL DIFF REQ NO Normal [facility] Comment on above: Performed By: #### C BC ####[facility] [address] [place] [id number] Garima Heraclio MCH (RBC) [Entitic mass] 31.0 pg Normal 25.9-34.0 [facility] Comment on above: Performed By: #### C BC ####[facility] [address] [place] [id number] Chapisrenu Pulliam MCHC (RBC) [Mass/Vol] 33.8 g/dL Normal 29.9-35.2 [facility] Comment on above: Performed By: #### C BC ####[facility] [address] [place] [id number] Chapisrenu Pulliam MCV (RBC) [Entitic vol] 91.7 fL Normal 80.0-94.0 [facility] Comment on above: Performed By: #### C BC ####[facility] [address]yom[address] [place] [id number] Pulliam MONO # 0.8 103/ul Normal 0.3-0.8 [facility] Comment on above: Performed By: #### C BC ####[facility] W[address]pubsnui[address] [place] [phone]. Garima Pulliam Monocytes/100 WBC (Bld) 5.2 % Normal 1.7-12.0 [facility] Comment on above: Performed By: #### C BC ####[facility] [address] [place] [phone]. Garima Pulliam NEUT # 11.7 103/ul Critically high 1.4-6.5 [facility] Comment on above: Performed By: #### C BC ####[facility] [address] [place] [address]Dr. Garima Pulliam Neutrophils/100 WBC (Bld) 81.5 % Critically high 43.0-75.0 [facility] Comment on above: Performed By: #### C BC ####[facility] [address]ib[address] [place] [address]Dr. Garima Pulliam Platelet mean volume (Bld) [Entitic vol] 8.6 fL Critically low 9.5-13.5 [facility] Comment on above: Performed By: #### C BC ####[facility] [address] [place], [place] [address]Dr. Garima Pulliam PLT 191 103/ul Normal 150-450 [facility] Comment on above: Performed By: #### C BC ####[facility] Q[address]xjqaya[address] [place] [phone]. Garima Pulliam RBC 5.06 106/ul Normal 4.70-6.10 [facility] Comment on above: Performed By: #### C BC ####[facility] [address]bt[address]ife[address] [place] [phone]. Garima Pulliam WBC 14.4 103/ul Critically high 4.0-11.0 [facility] Comment on above: Performed By: #### C BC ####[facility] [address] [place] [id number]. Garima Pulliam [facility] SARS-CoV-2 (COVID-19) RNA MARIE+probe Ql (Unsp spec) Not detected Normal NOT DETECTED [facility] Comment on above: Result Comment: When [...] for this test is supported by the [employer] of Health and Human Service's declaration that [...] be used). Performed By: #### C VDTBH ####[facility] [address] [place] [address]Dr. Garima Pulliam LACTATE/LACTIC ACIDon 2021 Lactate [Moles/Vol] 1.0 mmol/L Normal 0.4-1.9 [facility] Comment on above: Performed By: #### L ACT ####[facility] [address] [place] [address]Dr. Garima Pulliam PROF CHEM 8 (BAS METB)on Anion gap [Moles/Vol] 11.6 mmol/L Normal [facility] Comment on above: Performed By: #### B MP, CMADM ####[facility] [address] [place] [address]Dr. Garima Pulliam Calcium [Mass/Vol] 9.2 mg/dL Normal 8.5-10.1 [facility] Comment on above: Performed By: #### B MP, CMADM ####[facility] [address] [place] [address]Dr. Garima Pulliam Chloride [Moles/Vol] 105 mmol/L Normal 98-107 [facility] Comment on above: Performed By: #### B DAVID, CMADM ####[facility] [address] [place] [address]Dr. Garima Pulliam CO2 [Moles/Vol] 25.9 mmol/L Normal 21.0-32.0 [facility] Comment on above: Performed By: #### B DAVID, CMADM ####[facility] [address] [place] [address]Dr. Garima Pulliam Creatinine [Mass/Vol] 0.72 mg/dL Normal 0.70-1.30 [facility] Comment on above: Performed By: #### B DAVID, CMADM ####[facility] [address] [place] [address]Dr. Garima Pulliam EGFR-AF CITIZ[place] >60 Normal >=60 [facility] Comment on above: Performed By: #### B DAVID, CMADM ####[facility] [address] [place] [address]Dr. Garima Pulliam EGFR-NON AF CITIZEN OF [place] >60 Normal >=60 [facility] Comment on above: Performed By: #### B DAVID, CMADM ####[facility] [address] [place] [address]Dr. Garima Pulliam Glucose [Mass/Vol] 111 mg/dL Critically high 74-106 [facility] Comment on above: Performed By: #### B DAVID, CMADM ####[facility] [address] [place] [address]Dr. Garima Pulliam Potassium [Moles/Vol] 3.5 mmol/L Normal 3.5-5.1 [facility] Comment on above: Performed By: #### B DAVID, CMADM ####[facility] [address] [place] [address]Dr. Garima Pulliam Sodium [Moles/Vol] 139 mmol/L Normal 136-145 [facility] Comment on above: Performed By: #### B DAVID, CMADM ####[facility] [address] [place] [address]Dr. Garima Pulliam Urea nitrogen [Mass/Vol] 7.0 mg/dL Normal 7.0-18.0 [facility] Comment on above: Performed By: #### B NANCY HERNANDEZ ####[facility] [address] [place], [place] [address]Ek. Garima Heraclio Urea nitrogen/Creatinine [Mass ratio] 9.7 mg/mg Normal [facility] Comment on above: Performed By: #### B DAVID, NANCY ####[facility] [address] [place], [place] [address]Kv. Garima Pulliam XR CHEST 1 Von 09-12-2022 XR CHEST 1 V Normal [facility] Encounters Encounter Date Encounter Type Care [...] Facility:H1 Payers Date Payer Category Payer Unknown [id number] 1960 Medicaid [id number] 1960 Unknown [id number] 1960 Unknown [id number] 1955 Unknown [id number] 2.16.84 0.1.714315.3.579.2.593 1954 Unknown [id number] 2.16.84 0.1.107878.3.579.2.593 1954 Unknown [id number] 2.16.84 0.1.371219.3.579.2.593 1954 Unknown [id number] 2.16.84 0.1.808338.3.579.2.593 1954 Unknown [id number] 2.16.84 0.1.574647.3.579.2.593 1954 Unknown [id number] 2.16.84 0.1.544696.3.579.2.593 1954 Unknown [id number] 2.16.84 0.1.607058.3.579.2.593 1954 Unknown [id number] 2.16.84 0.1.553954.3.579.2.593 1954 Unknown [id number] 2.16.84 0.1.036765.3.579.2.593 1954 Unknown [id number] 2.16.84 0.1.541840.3.579.2.593 1954 Unknown [id number] 2.16.84 0.1.767496.3.579.2.593 1954 Unknown [id number] 2.16.84 0.1.654837.3.579.2.593 1954 Unknown [id number] 2.16.84 0.1.751512.3.579.2.593 1954 Unknown [id number] 2.16.84 0.1.116899.3.579.2.593 1954 Unknown [id number] 2.16.84 0.1.868506.3.579.2.593 1954 Unknown [id number] 2.16.84 0.1.907532.3.579.2.593 1954 Unknown [id number] 2.16.84 0.1.430766.3.579.2.593 1954 Unknown [id number] 2.16.84 0.1.811049.3.579.2.593 1954 Unknown [id number] 2.16.84 0.1.823972.3.579.2.593 1954 Unknown [id number] 2.16.84 0.1.689509.3.579.2.593 Summary Purpose Family History No Family History Records Found Advance Directives No Advanced Directives Records Found Additional Source Comments (unrecognized sect ion and content) No Status Records Found INFORMATION SOURCE (unrecogn ized section and content) DATE CREATED AUTHOR 04/08/2023 [facility] FOR RECORDS PERTAINING TO PATIENTS WHO ARE [...] BE BASED ON THE PRIMARY CLINICAL RECORDS. [facility] provides no warranty or guarantee of the accuracy or completeness of information in this document.
--- NOTE | 2023-12-25 18:19 | XR_ITS ---
The [place] [id number] Patient Name: CONSTANZA BARRETO MRN: [id number] date: 1955 Sex: M Assigned Patient Location: ER Current Patient Location: ED.MAIN Accession/Order Number: [id number] Exam Date: 12/25/2023 18:20 Report Date: 12/25/2023 20:40 At the request of: NINA MAGANA Procedure: XR chest 1V ONE-VIEW CHEST RADIOGRAPH, 12/25/2023 6:20 PM EST COMPARISON: Chest, 12/24/2023. CLINICAL HISTORY: short of breath Findings and impression: 1. No acute cardiopulmonary disease. 2. Normal heart size. 3. No acute osseous abnormality. Electronically authenticated by: Adriana COURTNEY Date: 12/25/2023 20:40
--- NOTE | 2023-12-25 18:19 | ECG_ITS ---
[facility] Test Date: 2023-12-25 Pat Name: CONSTANZA BARRETO Department: Room: - Gender: Male Checker: : 1955 Requested By: [id number] Order Number: [id number] Reading MD: DOMI RÍOS Measurements Intervals [place] Rate: 75 P: 91 MS: 196 QRS: 51 QRSD: 102 T: 61 QT: 384 QTc: 412 Interpretive Statements 1100 Sinus rhythm 3434 Septal myocardial infarction, age undetermined 9150 abnormal ECG Compared to ECG 12/24/2023 20:25:10 Myocardial infarct finding now present Electronically Signed On 12-27-2023 5:55:23 EST by DOMI RÍOS
[2023-12-25] MEDS: METHYLPREDNISOLONE SOD SUCC PF 125 MG/2 ML VIAL 80 MG IVP (18:27)
--- NOTE | 2023-12-25 18:27 | ED_ITS ---
HPI - SOB/Dyspnea General Chief Complaint: Shortness of Breath/Dyspnea Stated Complaint: Difficulty Breathing Time Seen by Provider: 12/25/23 18:13 Source: patient Mode of arrival: Wheelchair Limitations: no limitations History of Present Illness HPI Narrative: 68-year-old male with a history of chronic obstructive pulmonary disease returns here to the emergency room. He was seen yesterday diagnosis exacerbation of chronic obstructive pulmonary disease. Emergency Room physician did attempt to have him be admitted the patient refused. He presents back today with increased shortness of breath and wishes to be admitted. Patient has a history of chronic obstructive pulmonary disease and does frequent the emergency room. He is noncompliant with his medications because he has trouble paying for them. Patient was given prescriptions yesterday was unable to pick them up. Related Data Home Medications Medication Instructions Recorded Confirmed losartan 25 mg tablet (Cozaar) 25 mg PO DAILY 10/22/23 11/02/23 omeprazole 20 mg capsule,delayed 20 mg PO DAILY 10/22/23 11/02/23 release albuterol sulfate 2.5 mg/3 mL 2.5 mg inhalation Q6H 11/02/23 11/02/23 (0.083 %) solution for nebulization Previous Rx's Medication Instructions Recorded albuterol sulfate 90 mcg/actuation 2 inh inhalation Q6H PRN shortness 12/17/23 aerosol inhaler of breath or wheezing #8.5 grams azithromycin 250 mg tablet See Rx Instructions PO .COMPLEX #6 12/17/23 tabs prednisone 20 mg tablet 20 mg PO DAILY #9 tabs 12/17/23 albuterol sulfate 90 mcg/actuation 2 inh inhalation Q6H PRN shortness 12/24/23 aerosol inhaler of breath or wheezing #8.5 grams azithromycin 250 mg tablet See Rx Instructions PO .COMPLEX #6 12/24/23 tabs prednisone 20 mg tablet 40 mg (2 x 20 mg) PO BID 5 days 12/24/23 #10 tabs Allergies Allergy/AdvReac Type Severity Reaction Status Date / Time No Known Drug Allergies Allergy Verified 11/24/23 16:17 Review of Systems ROS Narrative All Systems are negative except as noted/marked.All systems reviewed and otherwise negative [facility] Medical History (Updated 12/25/23 @ 20:18 by Arabella Wills) RLL pneumonia ?J18.9 - Pneumonia, unspecified organism (ICD-10) COPD (chronic obstructive pulmonary disease) ?J44.9 - Chronic obstructive pulmonary disease, unspecified (ICD-10) Social History Smoking status: Current every day smoker Exam Narrative Exam Narrative: Nurses note and vital signs reviewed and patient is not hypoxic. General: The patient appears well and in no apparent distress. Patient is resting comfortably on cart. Skin: Warm, dry, no pallor noted. There is no rash noted. Head: Normocephalic, atraumatic Eye: Normal conjunctiva, no drainage, EOMI. PERRL Ears, Nose, Mouth, and Throat: oral mucosa is moist. Nares patent. Mouth without vesicles. Ear canals patent. Tm's without Erythema Cardiovascular: Regular Rate and Rhythm Respiratory: Scattered expiratory wheeze,barrel chested, no acute rales or rhonchi, increased respiratory rate Back: non-tender, no CVA tenderness bilaterally to percussion. Musculoskeletal: bilateral lower extremity edema, patient has no evidence of calf tenderness, symmetrical pulses noted bilaterally Neurological: A&O x4, normal speech Psychiatric: Cooperative Constitutional Vital Signs, click to edit/add: Last Vital Signs Temp 98.5 F 12/25/23 18:09 Pulse 65 12/25/23 18:51 Resp 24 12/25/23 18:51 BP 185/90 H 12/25/23 20:05 Pulse Ox 97 12/25/23 18:51 O2 Del Method Nasal Cannula 12/25/23 18:51 O2 Flow Rate 2 12/25/23 18:51 Course Vital Signs Vital signs: Vital Signs Temperature 98.5 F 12/25/23 18:09 Pulse Rate 84 12/25/23 18:09 Respiratory Rate 24 12/25/23 18:09 Blood Pressure 200/100 H 12/25/23 18:09 Pulse Oximetry 94 L 12/25/23 18:09 Oxygen Delivery Method Room Air 12/25/23 18:09 Temperature 98.5 F 12/25/23 18:09 Pulse Rate 65 12/25/23 18:51 Respiratory Rate 24 12/25/23 18:51 Blood Pressure 185/90 H 12/25/23 20:05 Pulse Oximetry 97 12/25/23 18:51 Oxygen Delivery Method Nasal Cannula 12/25/23 18:51 Oxygen Delivery Flow Rate 2 12/25/23 18:51 MDM - SOB/Dyspnea MDM Narrative Medical decision making narrative: 68-year-old male with a history of chronic obstructive pulmonary disease returns here to the emergency room. He was seen yesterday diagnosis exacerbation of chronic obstructive pulmonary disease. Emergency Room physician did attempt to have him be admitted the patient refused. He presents back today with increased shortness of breath and wishes to be admitted. Patient has a history of chronic obstructive pulmonary disease and does frequent the emergency room. He is noncompliant with his medications because he has trouble paying for them. Charlotte junior was given prescriptions yesterday was unable to pick them up. Patient returns to emergency room today after he was seen here yesterday refused to be admitted. Patient is unable to buy his prescriptions and return here with worsening symptoms of chronic obstructive pulmonary disease in exacerbation. Patient is alert and oriented. CBC BMP troponin and chest x-ray showed no acute active disease or pneumonia today. Patient's white cell count did go up to eleven compared to yesterday. He was given IV site Medrol yesterday and also given site Medrol here today. Patient also received DuoNeb breathing treatment here. He wishes to stay here in the hospital and does not feel comfortable going home. Patient blood pressure was elevated. He is a noncompliant chronic obstructive pulmonary disease year. He does often does not take his medications as he states he cannot afford them. I spoke to hospitalist who agrees to admit patient for observation. Diagnosis chronic obstructive pulmonary disease exacerbation Differential Diagnosis Differential diagnosis: Likely acute exacerbation of chronic obstructive airways disease, congestive heart failure and community acquired pneumonia Medical Records Attestation: I reviewed the patient's medical records. Lab Data Attestation: I reviewed the patient's lab results. Labs: Lab Results 12/25/23 12/25/23 Range/Units 18:24 18:26 WBC 11.5 H (4.0-11.0) 10^3/uL RBC 4.71 (4.70-6.10) 10^6/uL Hgb 14.2 (14.0-18.0) g/dL Hct 43.2 (42.0-54.0) % MCV 91.7 (80.0-94.0) fL MCH 30.1 (25.9-34.0) pg MCHC 32.9 (29.9-35.2) g/dL RDW 13.5 (11.0-15.0) % Plt Count 214 (150-450) 10^3/uL MPV 8.9 L (9.5-13.5) fL Neut % (Auto) 68.2 (43.0-75.0) % Lymph % (Auto) 19.9 L (20.5-60.0) % [place] % (Auto) 11.1 (1.7-12.0) % Eos % (Auto) 0.4 L (0.9-7.0) % Baso % (Auto) 0.1 L (0.2-2.0) % Neut # (Auto) 7.8 H (1.4-6.5) 10^3/uL Lymph # (Auto) 2.3 (1.2-3.8) 10^3/uL [place] # (Auto) 1.3 H (0.3-0.8) 10^3/uL Eos # (Auto) 0.1 (0.0-0.7) 10^3/uL Baso # (Auto) 0.0 (0.0-0.1) 10^3/uL Abs Immat Gran (auto) 0.03 (0.00-0.03) 10^3/uL Imm/Tot Granulo (auto) 0.3 (0.0-0.5) % PT 11.4 (9.0-11.6) sec INR 1.08 APTT 26.7 (22.3-36.2) sec Sodium 137 (136-145) mmol/L Potassium 3.8 (3.5-5.1) mmol/L Chloride 102 (98-107) mmol/L Carbon Dioxide 30.2 (21.0-32.0) mmol/L Anion Gap 8.6 BUN 10.0 (7.0-18.0) mg/dL Creatinine 0.82 (0.70-1.30) mg/dL Est GFR ( Amer) >60 (>=60) Est GFR (Non-Af Amer) >60 (>=60) BUN/Creatinine Ratio 12.2 Glucose 151 H (74-106) mg/dL Calcium 9.2 (8.5-10.1) mg/dL Magnesium 1.9 (1.8-2.4) mg/dL Total Bilirubin 0.5 (0.2-1.0) mg/dL AST 20 (15-37) U/L ALT 32 (16-63) U/L Alkaline Phosphatase 70 (46-116) U/L Troponin I High Sens 16.8 (4.0-76.1) pg/mL NT-Pro-B Natriuret Pep 629.0 (<=900.0) pg/mL Total Protein 6.7 (6.4-8.2) g/dL Albumin 3.8 (3.4-5.0) g/dL Globulin 2.9 g/dL Albumin/Globulin Ratio 1.3 Adenovirus (PCR) Not detected (NOT DETECTE) C. pneumoniae DNA (PCR) Not detected (NOT DETECTE) Coronavirus Type OC43 Not detected (NOT DETECTE) Coronavirus Type HKU1 Not detected (NOT DETECTE) Coronavirus Type 229E Not detected (NOT DETECTE) Coronavirus Type NL63 Not detected (NOT DETECTE) Human Metapneumovir PCR Not detected (NOT DETECTE) M. pneumoniae (PCR) Not detected (NOT DETECTE) Parainfluenza PCR Not detected (NOT DETECTE) Parainfluenza 2 (PCR) Not detected (NOT DETECTE) Parainfluenza 3 (PCR) Not detected (NOT DETECTE) Parainfluenza 4 (PCR) Not detected (NOT DETECTE) RSV (RT-PCR) Not detected (NOT DETECTE) Entero/Rhino (PCR) Not detected (NOT DETECTE) SARS-CoV-2 (PCR) Not detected (NOT DETECTE) Bordetella pertussis (PCR) Not detected (NOT DETECTE) B parapertussis DNA PCR Not detected (NOT DETECTE) Influenza Type A (PCR) Not detected (NOT DETECTE) Influenza Type B (PCR) Not detected (NOT DETECTE) ECG Data Interpretation: 181 EKG shows sinus rhythm with a rate of seventy-five beats for minute, pr interval 196 ms, QRS duration 102 ms, artifact noted, no STEMI Discharge Plan Discharge Chief Complaint: Shortness of Breath/Dyspnea Clinical Impression: Acute exacerbation of chronic obstructive pulmonary disease (COPD) Patient Disposition: Admitted as Observation Time of Disposition Decision: 20:17 Condition: Good
[2023-12-25 18:30] LABS: Basophils Percent Auto 0.1 % (0.2-2.0); Eosinophils Absolute Auto 0.1 10^3/uL (0.0-0.7); Eosinophils Percent Auto 0.4 % (0.9-7.0); Hematocrit 43.2 % (42.0-54.0); Hemoglobin 14.2 g/dL (14.0-18.0); Immature Granulocytes Abs Auto 0.03 10^3/uL (0.00-0.03); Immature Granulocytes Pct Auto 0.3 % (0.0-0.5); Lymphocytes Absolute Auto 2.3 10^3/uL (1.2-3.8); Lymphocytes Percent Auto 19.9 % (20.5-60.0); Mean Corpuscular HGB Conc 32.9 g/dL (29.9-35.2); Mean Corpuscular Hemoglobin 30.1 pg (25.9-34.0); Mean Corpuscular Volume 91.7 fL (80.0-94.0); Mean Platelet Volume 8.9 fL (9.5-13.5); Monocytes Absolute Auto 1.3 10^3/uL (0.3-0.8); Monocytes Percent Auto 11.1 % (1.7-12.0); Neutrophils Absolute Auto 7.8 10^3/uL (1.4-6.5); Neutrophils Percent Auto 68.2 % (43.0-75.0); Platelet Count 214 10^3/uL (150-450); Red Blood Count 4.71 10^6/uL (4.70-6.10); Red Cell Distribution Width 13.5 % (11.0-15.0); White Blood Count 11.5 10^3/uL (4.0-11.0)
[2023-12-25 18:39] LABS: Magnesium 1.9 mg/dL (1.8-2.4)
[2023-12-25 18:42] LABS: Adenovirus NOT DETECTED (NOT DETECTE); Bordetella parapertussis NOT DETECTED (NOT DETECTE); Coronavirus 229E NOT DETECTED (NOT DETECTE); Coronavirus HKU1 NOT DETECTED (NOT DETECTE); Coronavirus NL63 NOT DETECTED (NOT DETECTE); Coronavirus OC43 NOT DETECTED (NOT DETECTE); Human Metapneumovirus NOT DETECTED (NOT DETECTE); Human Rhinovirus/Enterovirus NOT DETECTED (NOT DETECTE); Influenza A NOT DETECTED (NOT DETECTE); Influenza B NOT DETECTED (NOT DETECTE); Mycoplasma pneumoniae NOT DETECTED (NOT DETECTE); Parainfluenza Virus 1 NOT DETECTED (NOT DETECTE); Parainfluenza Virus 2 NOT DETECTED (NOT DETECTE); Parainfluenza Virus 3 NOT DETECTED (NOT DETECTE); Parainfluenza Virus 4 NOT DETECTED (NOT DETECTE); Respiratory Syncytial Virus NOT DETECTED (NOT DETECTE); SARS-CoV-2 NOT DETECTED (NOT DETECTE)
[2023-12-25 18:43] LABS: INR 1.08; Partial Thromboplastin Time 26.7 sec (22.3-36.2); Prothrombin Time 11.4 sec (9.0-11.6)
[2023-12-25 18:44] LABS: Alanine Aminotransferase 32 U/L (16-63); Albumin Globulin Ratio 1.3; Albumin Level 3.8 g/dL (3.4-5.0); Alkaline Phosphatase 70 U/L (46-116); Anion Gap 8.6; Aspartate Amino Transferase 20 U/L (15-37); BUN Creatinine Ratio 12.2; Bilirubin Total 0.5 mg/dL (0.2-1.0); Calcium 9.2 mg/dL (8.5-10.1); Carbon Dioxide 30.2 mmol/L (21.0-32.0); Chloride 102 mmol/L (98-107); Estimated GFR (African America >60 (>=60); Estimated GFR (Non-African Ame >60 (>=60); Globulin 2.9 g/dL; Glucose 151 mg/dL (74-106); Potassium 3.8 mmol/L (3.5-5.1); Sodium 137 mmol/L (136-145); Total Protein 6.7 g/dL (6.4-8.2)
[2023-12-25] MEDS: IPRATROPIUM/ALBUTEROL SULFATE 3 ML AMPUL.NEB IH (18:50)
[2023-12-25 18:51] LABS: Troponin I High Sensitivity 16.8 pg/mL (4.0-76.1)
[2023-12-25] MEDS: HYDRALAZINE HCL 20 MG/ML VIAL 5 MG IVP ×2 (19:31→20:05)
--- OUTSIDE RECORDS SUMMARY | 2023-12-25 21:05 | XMS_ITS | CCD ---
Author Name Unknown Address [address] [place] [address] Organization [facility] Care Team Providers Care Assistant Research Scientist Name Role Phone REQUEST, DR NONE LISTED [...] NONE LISTED Primary Care Unavaila ble GIO [place] Consulting Unavailable DIAB ., MITCH Consulting Unavailable [...] KATKO, DEMARCUS D Admitting Unavailable KATKO, DEMARCUS Culelar Attending Unavailable Zieber, Rui Consulting Unavailable KATKO, DEMARCUS Cuellar Consulting Unavailable REQUEST, DR NONE LISTED Primary Care Unavaila ble TAVARES, KENTRELL Admitting Unavailable TAVARES, KENTRELL Attending Unavailable GRECHNY ., PALMIRA FOX Consulting Unavailabl e TAVARES, KENTRELL Consulting Unavailable REQUEST, NONE LISTED Primary Care Unavaila ble DIAB ., MITCH Consulting Unavailable DIAB ., MITCH Admitting Unavailable DIAB ., MICTH Attending Unavailable REQUEST, DR NONE LISTED Primary [...] Facility (1 source) Penicillin Drug Allergy [facility] Repository Problems Active Problems Problem Classification [...] 03-27-2023 Episodic Other aftercare (1 source) 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 Garima Pulliam Basophils/100 WBC (Bld) 0.3 % Normal 0.2-2.0 [facility] Comment on above: Performed By: #### C BC ####[facility] Penrrxtzvx[address] [place], [place] [address]NgAdalberto Pulliam EO # 0.3 103/ul Normal 0.0-0.7 [facility] Comment on above: Performed By: #### C BC ####[facility] Ftwytgeedz1897 [place] [phone]. Garima Pulliam Eosinophils/100 WBC (Bld) 2.8 % Normal 0.9-7.0 [facility] Comment on above: Performed By: #### C BC ####[facility] Txrncbmllq1036 [place] [address]Dr. Garima Pulliam Erythrocyte distribution width (RBC) [Ratio] 13.4 % Normal 11.0-15.0 [facility] Comment on above: Performed By: #### C BC ####[facility] Hl[address]wc[address] [place], [place] [address]Dr. Garima Pulliam Hematocrit (Bld) [Volume fraction] 45.7 % Normal 42.0-54.0 [facility] Comment on above: Performed By: #### C BC ####[facility] Skazsrernk[address] [place], [place] [address]Dr. Garima Pulliam Hemoglobin (Bld) [Mass/Vol] 15.2 g/dL Normal 14.0-18.0 [facility] Comment on above: Performed By: #### C BC ####[facility] [address]aezjw[address] [place], [place] [address]Dr. Garima Pulliam IG # 0.02 10e3/ul Normal 0.00-0.03 [facility] Comment on above: Performed By: #### C BC ####[facility] Gogfoomler[address] [place], [place] [address]Dr. Garima Pulliam IG % 0.2 % Normal 0.0-0.5 [facility] Comment on above: Performed By: #### C BC ####[facility] Vkkmuutdtg[address] [place], [place] [address]Dr. Garima Pulliam LYMPH # 2.1 103/ul Normal 1.2-3.8 [facility] Comment on above: Performed By: #### C BC ####[facility] Vivsbelacx[address] [place], [place] [address]Dr. Garima Pulliam Lymphocytes/100 WBC (Bld) 23.7 % Normal 20.5-60.0 [facility] Comment on above: Performed By: #### C BC ####[facility] Pdgfluntpz3641 [place] [phone]. Garima Pulliam MANUAL DIFF REQ NO Normal [facility] Comment on above: Performed By: #### C BC ####[facility] Tsagwgzlyh4685 [place] [phone]. Garima Pulliam MCH (RBC) [Entitic mass] 30.4 pg Normal 25.9-34.0 [facility] Comment on above: Performed By: #### C BC ####[facility] [address]iv[address]xs[address] [place], [place] [id number]. Garima Pulliam MCHC (RBC) [Mass/Vol] 33.3 g/dL Normal 29.9-35.2 [facility] Comment on above: Performed By: #### C BC ####[facility] Hhcmz[address] [place], [place] [address]Dr. Garima Pulliam MCV (RBC) [Entitic vol] 91.4 fL Normal 80.0-94.0 [facility] Comment on above: Performed By: #### C BC ####[facility] Mdrayghlyr[address] [place], [place] [address]Dr. Garima Pulliam MONO # 0.7 103/ul Normal 0.3-0.8 [facility] Comment on above: Performed By: #### C BC ####[facility] Djxvjeneis[address] [place], [place] [address]Dr. Chapisrenu Pulliam Monocytes/100 WBC (Bld) 8.3 % Normal 1.7-12.0 [facility] Comment on above: Performed By: #### C BC ####[facility] Ngaxblxfbm[address] [place], [place] [id number]. Garima Pulliam NEUT # 5.8 103/ul Normal 1.4-6.5 [facility] Comment on above: Performed By: #### C BC ####[facility] Jrzyarmoza[address] [place], [place] [address]Dr. Garima Pulliam Neutrophils/100 WBC (Bld) 64.7 % Normal 43.0-75.0 [facility] Comment on above: Performed By: #### C BC ####[facility] Vmvppdrdhz9988 [place] [phone]. Garima Pulliam Platelet mean volume (Bld) [Entitic vol] 8.6 fL Critically low 9.5-13.5 [facility] Comment on above: Performed By: #### C BC ####[facility] Hjpavktvly0182 [place] [address]Dr. Garima Pulliam PLT 230 103/ul Normal 150-450 [facility] Comment on above: Performed By: #### C BC ####[facility] Jphkftpbvn8026 [place] [address]Dr. Garima Pulliam RBC 5.00 106/ul Normal 4.70-6.10 [facility] Comment on above: Performed By: #### C BC ####[facility] Rlybunfkbv4836 [place] [address]Dr. Garima Pulliam WBC 9.0 103/ul Normal 4.0-11.0 [facility] Comment on above: Performed By: #### C BC ####[facility] Xccifzmgaf[address] [place], [place] [address]Dr. Garima Pulliam MAGNESIUMon 04-04-2023 Magnesium [Mass/Vol] 1.8 mg/dL Normal 1.8-2.4 [facility] Comment on above: Performed By: #### M G ####[facility] Qthghnjspj[address] [place], [place] [address]Dr. Garima Pulliam PROF 14(COMP METB)on 023 Albumin [Mass/Vol] 3.8 g/dL Normal 3.4-5.0 [facility] Comment on above: Performed By: #### C MP ####[facility] Bqrjuqywfv[address] [place], [place] [address]Dr. Garima Pulliam Albumin/Globulin [Mass ratio] 1.2 {ratio} Normal [facility] Comment on above: Performed By: #### C MP ####[facility] Qeyozjcmjq9439 [place] [address]Dr. Garima Pulliam ALP [Catalytic activity/Vol] 84 U/L Normal 46-116 [facility] Comment on above: Performed By: #### C MP ####[facility] Zxxvvdnavx7864 [place] [phone]. Garima Pulliam ALT [Catalytic activity/Vol] 31 U/L Normal 16-63 [facility] Comment on above: Performed By: #### C MP ####[facility] Bxddobyoqa4570 [place] [phone]. Garima Pulliam Anion gap [Moles/Vol] 12.2 mmol/L Normal [facility] Comment on above: Performed By: #### C MP ####[facility] Mtcwruzbuj6235 [place] [phone]. Garima Pulliam AST [Catalytic activity/Vol] 23 U/L Normal 15-37 [facility] Comment on above: Performed By: #### C MP ####[facility] [address]qb[address] [place], [place] [address]Dr. Garima Pulliam Bilirubin [Mass/Vol] 0.5 mg/dL Normal 0.2-1.0 [facility] Comment on above: Performed By: #### C MP ####[facility] Oyaz[address] [place], [place] [address]Dr. Garima Pulliam Calcium [Mass/Vol] 9.2 mg/dL Normal 8.5-10.1 [facility] Comment on above: Performed By: #### C MP ####[facility] Geuzisftbt[address] [place], [place] [address]Dr. Garima Uplliam Chloride [Moles/Vol] 103 mmol/L Normal 98-107 [facility] Comment on above: Performed By: #### C MP ####[facility] Y[address]owes[address] [place], [place] [id number]. Garima Pulliam CO2 [Moles/Vol] 28.5 mmol/L Normal 21.0-32.0 [facility] Comment on above: Performed By: #### C MP ####[facility] Kts[address]vujzj[address] [place], [place] [id number]. Garima Pulliam Creatinine [Mass/Vol] 0.74 mg/dL Normal 0.70-1.30 [facility] Comment on above: Performed By: #### C MP ####[facility] Rtzvzzezgd3445 [place] [phone]. Garima Pulliam EGFR-AF TURKS AND CAICOS ISLANDER >60 Normal >=[address] [facility] Comment on above: Performed By: #### C MP ####[facility] Iikieriwra3357 [place] [phone]. Garima Pulliam EGFR-NON AF TURKS AND CAICOS ISLANDER >60 Normal >=60 [facility] Comment on above: Performed By: #### C MP ####[facility] Cntnunmxnm0418 [place] [address]Dr. Garima Pulliam Globulin (S) [Mass/Vol] 3.1 g/dL Normal [facility] Comment on above: Performed By: #### C MP ####[facility] Cbdrgcxsnx5508 [place] [address]Dr. Garima Pulliam Glucose [Mass/Vol] 93 mg/dL Normal 74-106 [facility] Comment on above: Performed By: #### C MP ####[facility] Ymslzjrbum9206 [place] [address]Dr. Garima Pulliam Potassium [Moles/Vol] 3.7 mmol/L Normal 3.5-5.1 [facility] Comment on above: Performed By: #### C MP ####[facility] Vhikmwmvyi8319 [place] [address]Dr. Garima Pulliam Protein [Mass/Vol] 6.9 g/dL Normal 6.4-8.2 [facility] Comment on above: Performed By: #### C MP ####[facility] Mrnupbkqpn0689 [place] [address]Dr. Garima Pulliam Sodium [Moles/Vol] 140 mmol/L Normal 136-145 [facility] Comment on above: Performed By: #### C MP ####[facility] Exjdmuqvcy2385 [place] [address]Dr. Garima Pulliam Urea nitrogen [Mass/Vol] 8.0 mg/dL Normal 7.0-18.0 [facility] Comment on above: Performed By: #### C MP ####[facility] Invbtfpzrk4799 [place] [address]Dr. Garima Pulliam Urea nitrogen/Creatinine [Mass ratio] 10.8 mg/mg Normal [facility] Comment on above: Performed By: #### C MP ####[facility] Vahjrvqtfn2710 [place] [address]Dr. Garima Pulliam AMMONIAon 03-30-2023 Ammonia (P) [Moles/Vol] 11 umol/L Normal 11-32 [facility] Comment on above: Performed By: #### A MM ####[facility] Ehyegvesbs[address] [place], [place] [address]Dr. Chapisrenu Pulliam CARDIAC NASH ADMITon 023 CK [Catalytic activity/Vol] 232 U/L Normal 39-308 [facility] Comment on above: Performed By: #### C DAVID, CMADM ####[facility] Chcrzgzqmb[address] [place], [place] [address]Dr. Chapisrenu Pulliam CK.MB [Mass/Vol] 4.83 ng/mL Critically high <=3.60 [facility] Comment on above: Performed By: #### C DAVID, CMADM ####[facility] Oiwzs[address]lk[address] [place], [place] [address]Dr. Garima Pulliam HSTROP 10.5 pg/mL Normal 4.0-76.1 [facility] Comment on above: Result Comment: CUT- OFF POINTS HAVE BEEN ESTABLISHED BASED ON THE FOURTH UNIVERSAL DEFINITIONS OF MYOCARDIALINFARCTION. THE UPPER REFERENCE LIMIT (URL) OF TROPONIN, DEFINED THE 99TH PERCENTILE OFcTnI DISTRIBUTION IN A REFERENCE POPULATION, HAS BEEN CONFIRMED THE DECISION THRESHOLDFOR [place] DIAGNOSIS. Performed By: #### C DAVID, CMADM ####[facility] Fb[address]gtezhe3[address] [place] [address]Dr. Chapisrenu Pulliam DORIS 79 ng/mL Normal 16-96 [facility] Comment on above: Performed By: #### C DAVID, CMADM ####[facility] Paxdxbbeyn[address] [place], [place] [address]Dr. Chapisrenu Pulliam CBC AUTO DIFFon 03-30-2023 BASO # 0.0 103/ul Normal 0.0-0.1 [facility] Comment on above: Performed By: #### C BC ####[facility] Rgwxajizzh7877 [place] [phone]. Garima Pulliam Basophils/100 WBC (Bld) 0.1 % Critically low 0.2-2.0 [facility] Comment on above: Performed By: #### C BC ####[facility] Usjnmmfnbn[address] [place], [place] [address]Dr. Garima Pulliam EO # 0.3 103/ul Normal 0.0-0.7 [facility] Comment on above: Performed By: #### C BC ####[facility] Hehpnoawtl[address] [place], [place] [address]Dr. Garima Pulliam Eosinophils/100 WBC (Bld) 3.3 % Normal 0.9-7.0 [facility] Comment on above: Performed By: #### C BC ####[facility] Shypigkiok[address] [place], [place] [address]Dr. Garima Pulliam Erythrocyte distribution width (RBC) [Ratio] 13.5 % Normal 11.0-15.0 [facility] Comment on above: Performed By: #### C BC ####[facility] [address]rjszqgwio[address] [place], [place] [address]Dr. Garima Pulliam Hematocrit (Bld) [Volume fraction] 42.9 % Normal 42.0-54.0 [facility] Comment on above: Performed By: #### C BC ####[facility] Ktymamsbsg[address] [place], [place] [address]Dr. Garima Pulliam Hemoglobin (Bld) [Mass/Vol] 13.9 g/dL Critically low 14.0-18.0 [facility] Comment on above: Performed By: #### C BC ####[facility] Bigpjyndza[address] [place], [place] [address]Dr. Garima Pulliam IG # 0.01 10e3/ul Normal 0.00-0.03 [facility] Comment on above: Performed By: #### C BC ####[facility] [address] [place], [place] [id number]. Garima Pulliam IG % 0.1 % Normal 0.0-0.5 [facility] Comment on above: Performed By: #### C BC ####[facility] Prvsngllan4797 [place] [phone]. Garima Pulliam LYMPH # 1.7 103/ul Normal 1.2-3.8 [facility] Comment on above: Performed By: #### C BC ####[facility] Xwjlmkcwss8027 [place] [phone]. Garima Pulliam Lymphocytes/100 WBC (Bld) 22.8 % Normal 20.5-60.0 [facility] Comment on above: Performed By: #### C BC ####[facility] Vgjjsxxmed3669 [place] [phone]. Garima Pulliam MANUAL DIFF REQ NO Normal [facility] Comment on above: Performed By: #### C BC ####[facility] Zptbxwhjmb8284 [place] [phone]. Garima Pulliam MCH (RBC) [Entitic mass] 30.5 pg Normal 25.9-34.0 [facility] Comment on above: Performed By: #### C BC ####[facility] Eekindceug[address] [place] [phone]. Garima Pulliam MCHC (RBC) [Mass/Vol] 32.4 g/dL Normal 29.9-35.2 [facility] Comment on above: Performed By: #### C BC ####[facility] Ztoqbrlfdb7171 [place] [phone]. Garima Pulliam MCV (RBC) [Entitic vol] 94.1 fL Critically high 80.0-94.0 [facility] Comment on above: Performed By: #### C BC ####[facility] Stfqrobvnf3731 [place] [phone]. Garima Pulliam MONO # 0.7 103/ul Normal 0.3-0.8 [facility] Comment on above: Performed By: #### C BC ####[facility] Yqprszztbn0655 [place] [phone]. Garima Pulliam Monocytes/100 WBC (Bld) 8.6 % Normal 1.7-12.0 [facility] Comment on above: Performed By: #### C BC ####[facility] Rcheujwwye8451 [place] [phone]. Garima Pulliam NEUT # 4.9 103/ul Normal 1.4-6.5 [facility] Comment on above: Performed By: #### C BC ####[facility] Xgoqkcsxyu7460 [place] [phone]. Garima Pulliam Neutrophils/100 WBC (Bld) 65.1 % Normal 43.0-75.0 [facility] Comment on above: Performed By: #### C BC ####[facility] Kdeozluhju1234 [place] [phone]. Garima Pulliam Platelet mean volume (Bld) [Entitic vol] 8.5 fL Critically low 9.5-13.5 [facility] Comment on above: Performed By: #### C BC ####[facility] Fobkbicyfg7090 [place] [phone]. Garima Pulliam PLT 219 103/ul Normal 150-450 [facility] Comment on above: Performed By: #### C BC ####[facility] Uzmuhzfoat6559 [place] [phone]. Garima Pulliam RBC 4.56 106/ul Critically low 4.70-6.10 [facility] Comment on above: Performed By: #### C BC ####[facility] Hvlxoxpcze3543 [place] [phone]. Garima Pulliam WBC 7.6 103/ul Normal 4.0-11.0 [facility] Comment on above: Performed By: #### C BC ####[facility] Pvwjbvevgt5953 [place] [phone]. Garima Pulliam LACTATE/LACTIC ACIDon 2022 Lactate [Moles/Vol] 1.2 mmol/L Normal 0.4-2.0 [facility] Comment on above: Performed By: #### L ACT ####[facility] Pyuelnwamm0390 [place] [phone]. Garima Pulliam MAGNESIUMon 03-30-2023 Magnesium [Mass/Vol] 1.8 mg/dL Normal 1.8-2.4 [facility] Comment on above: Performed By: #### M G ####[facility] Fbgksxmawg0706 [place] [address]Dr. Garima Pulliam PROF 14(COMP METB)on 023 Albumin [Mass/Vol] 3.5 g/dL Normal 3.4-5.0 [facility] Comment on above: Performed By: #### C DAVID, NANCY ####[facility] Zzqmnjowup4[address] [place] [address]Dr. Garima Pulliam Albumin/Globulin [Mass ratio] 1.2 {ratio} Normal [facility] Comment on above: Performed By: #### C NANCY HERNANDEZ ####[facility] Srvfybcpqh3447 [place] [address]Dr. Garima Pulliam ALP [Catalytic activity/Vol] 85 U/L Normal 46-116 [facility] Comment on above: Performed By: #### Ethan HERNANDEZ, NANCY ####[facility] Rffddyrwhe4341 [place] [address]Dr. Garima Pulliam ALT [Catalytic activity/Vol] 29 U/L Normal 16-63 [facility] Comment on above: Performed By: #### NANCY Long MP ####[facility] Tqozyoiypm1810 [place] [address]Dr. Garima Pulliam Anion gap [Moles/Vol] 8.0 mmol/L Normal [facility] Comment on above: Performed By: #### C DAVID, NANCY ####[facility] Ulztjebgra0158 [place] [address]Dr. Garima Pulliam AST [Catalytic activity/Vol] 18 U/L Normal 15-37 [facility] Comment on above: Performed By: #### C DAVID, NANCY ####[facility] Gdlqtjqxop4431 [place] [address]Dr. Garima Pulliam Bilirubin [Mass/Vol] 0.4 mg/dL Normal 0.2-1.0 [facility] Comment on above: Performed By: #### NANCY Long MP ####[facility] Czgxgxzkth0310 [place] [address]Dr. Garima Pulliam Calcium [Mass/Vol] 8.8 mg/dL Normal 8.5-10.1 [facility] Comment on above: Performed By: #### C DAVID, NANCY ####[facility] Pupkozpyez6637 [place] [address]Dr. Garima Pulliam Chloride [Moles/Vol] 108 mmol/L Critically high 98-107 [facility] Comment on above: Performed By: #### C DAVID, NANCY ####[facility] Vafvgqunab6497 [place] [address]Dr. Garima Pulliam CO2 [Moles/Vol] 29.6 mmol/L Normal 21.0-32.[address] [facility] Comment on above: Performed By: #### C DAVID, NANCY ####[facility] Jcrzdbwxns0867 [place] [address]Dr. Garima Pulliam Creatinine [Mass/Vol] 0.77 mg/dL Normal 0.70-1.30 [facility] Comment on above: Performed By: #### C DAVID, NANCY ####[facility] Vkzpcyevai6962 [place] [address]Dr. Garima Pulliam EGFR-AF TURKS AND CAICOS ISLANDER >60 Normal >=60 [facility] Comment on above: Performed By: #### C DAVID, NANCY ####[facility] Dmspeyhrqi0658 [place] [address]Dr. Garima Pulliam EGFR-NON AF TURKS AND CAICOS ISLANDER >60 Normal >=60 [facility] Comment on above: Performed By: #### C DAVID, NANCY ####[facility] Xxhtsgqyfc2173 [place] [phone]. Garima Pulliam Globulin (S) [Mass/Vol] 2.8 g/dL Normal [facility] Comment on above: Performed By: #### C DAVID, NANCY ####[facility] Omuguelyfp6575 [place] [address]Dr. Garima Pulliam Glucose [Mass/Vol] 207 mg/dL Critically high 74-106 [facility] Comment on above: Performed By: #### C DAVID, NANCY ####[facility] Vmrcyjeasa4333 [place] [address]Dr. Garima Pulliam Potassium [Moles/Vol] 4.6 mmol/L Normal 3.5-5.1 [facility] Comment on above: Performed By: #### C DAVID, CMADM ####[facility] Kvxuvopefy7431 [place] [address]Dr. Garima Pulliam Protein [Mass/Vol] 6.3 g/dL Critically low 6.4-8.2 [facility] Comment on above: Performed By: #### C DAVID, CMADM ####[facility] Ljyifkoqpf9488 [place] [address]Dr. Garima Pulliam Sodium [Moles/Vol] 141 mmol/L Normal 136-145 [facility] Comment on above: Performed By: #### C DAVID, CMADM ####[facility] Pctmsdfltc0118 [place] [address]Dr. Chapisrenu Pulliam Urea nitrogen [Mass/Vol] 9.0 mg/dL Normal 7.0-18.0 [facility] Comment on above: Performed By: #### C DAVID, CMADM ####[facility] Kvvxhvelda7706 [place] [address]Dr. Garima Pulliam Urea nitrogen/Creatinine [Mass ratio] 11.7 mg/mg Normal [facility] Comment on above: Performed By: #### C DAVID, CMADM ####[facility] Fooelijfco5452 [place] [address]Dr. Chapisrenu Pulliam XR CHEST 1 Von 03-30-2023 XR CHEST 1 V Normal [facility] BNPon 03-27-2023 Natriuretic peptide B (Bld) [Mass/Vol] 251.0 pg/mL Normal <=900.0 [facility] Comment on above: Performed By: #### C MP, BNP, LIPID ####[facility] Kwavyouicr[address] [place], [place] [address]Dr. Garima Heraclio GLYCOHEMOGLOBIN A1Con 2022 ADA RECOMMENDATION SEE BELOW Normal [facility] Comment on above: Result Comment: ADA RECOMMENDED LIMIT 4.0 - 6.0 ADA THERAPEUTIC TARGET < 7.0 ACTION SUGGESTED > 7.0 Performed By: #### A 1C ####[facility] Baeckvxokv8087 [place] [address]Dr. Garima Pulliam Glucose [Mass/Vol] 180 mg/dL Normal [facility] Comment on above: Performed By: #### A 1C ####[facility] Tnaduomnav6451 [place] [address]Dr. Garima Pulliam HbA1c (Bld) [Mass fraction] 7.9 % Critically high 4.5-6.2 [facility] Comment on above: Performed By: #### A 1C ####[facility] Ofzzkasikn[address] [place], [place] [address]Dr. Garima Pulliam HEMOGRAM AND PLATELon 2022 Hematocrit (Bld) [Volume fraction] 45.7 % Normal 42.0-54.0 [facility] Comment on above: Performed By: #### H H ####[facility] Nipnzbmitr[address] [place], [place] [address]Dr. Garima Pulliam Hemoglobin (Bld) [Mass/Vol] 15.1 g/dL Normal 14.0-18.0 [facility] Comment on above: Performed By: #### H H ####[facility] Kqlyvasdil[address] [place], [place] [address]Dr. Garima Pulliam MCH (RBC) [Entitic mass] 30.0 pg Normal 25.9-34.0 [facility] Comment on above: Performed By: #### H H ####[facility] Wfefuiofma[address] [place], [place] [address]Dr. Garima Pulliam MCHC (RBC) [Mass/Vol] 33.0 g/dL Normal 29.9-35.2 [facility] Comment on above: Performed By: #### H H ####[facility] Mjjsspepjw[address] [place], [place] [address]Dr. Garima Pulliam MCV (RBC) [Entitic vol] 90.7 fL Normal 80.0-94.0 [facility] Comment on above: Performed By: #### H H ####[facility] Lekmhyplgj[address] [place], [place] [address]Dr. Garima Pulliam PLT 222 103/ul Normal 150-450 [facility] Comment on above: Performed By: #### H H ####[facility] Ehcvghmvgp6502 [place] [phone]. Garima Pulliam RBC 5.04 106/ul Normal 4.70-6.10 [facility] Comment on above: Performed By: #### H H ####[facility] Ystpycdigx2376 [place] [phone]. Garima Pulliam WBC 8.7 103/ul Normal 4.0-11.0 [facility] Comment on above: Performed By: #### H H ####[facility] Rsnbybpxtz1230 [place] [address]Dr. Garima Pulliam LIPID PROFILEon 03-27-2023 CHOL-HDL RATIO NORM SEE BELOW Normal [facility] Comment on above: Result Comment: 3.3 - 4.4 LOW RISK 4.4 - 7.1 AVERAGE RISK 7.1 - 11.0 MODERATE RISK >11.0 HIGH RISK Performed By: #### C MP, BNP, LIPID ####[facility] Tsvpkpmnhr0272 [place] [phone]. Garima Pulliam Cholesterol [Mass/Vol] 113 mg/dL Normal <=200 [facility] Comment on above: Performed By: #### C MP, BNP, LIPID ####[facility] Qxxguraoql9959 [place] [id number]. Garima Pulliam Cholesterol in HDL [Mass/Vol] 51 mg/dL Normal 40-60 [facility] Comment on above: Performed By: #### C MP, BNP, LIPID ####[facility] Sdfrifvhbv5028 [place] [phone]. Garima Pulliam Cholesterol in LDL [Mass/Vol] 49.8 mg/dL Normal [facility] Comment on above: Performed By: #### C MP, BNP, LIPID ####[facility] Elqfjsofue0002 [place] [phone]. Garima Pulliam Cholesterol.total/Cho lesterol in HDL [Mass ratio] 2.2 {ratio} Normal [facility] Comment on above: Performed By: #### C MP, BNP, LIPID ####[facility] Mhybkawuvv[address] [place] [address]Dr. Garima Pulliam HDL NORMAL > or = 60 mg/dl - LOW CARDIOVASCULAR RISK <40 mg/dl - HIGH CARDIOVASCULAR RISK Normal [facility] Comment on above: Performed By: #### C MP, BNP, LIPID ####[facility] Lmwxnmlqwn[address] [place] [address]Dr. Garima Pulliam LDL CALC NORMAL SEE BELOW Normal [facility] Comment on above: Result Comment: <100 mg/dl OPTIMAL 100 - 129 mg/dl NEAR OR ABOVE OPTIMAL 130 - 159 mg/dl BORDERLINE HIGH 160 - 189 mg/dl HIGH >190 mg/dl VERY HIGH Performed By: #### C MP, BNP, LIPID ####[facility] Avdgqygbjy2[address] [place] [address]Dr. Garima Pulliam Triglyceride [Mass/Vol] 61 mg/dL Normal <=150 [facility] Comment on above: Performed By: #### C MP, BNP, LIPID ####[facility] Nbjuijgfwc19[address] [place] [address]Dr. Garima Pulliam VLDL CALC 12.2 mg/dL Normal [facility] Comment on above: Performed By: #### C MP, BNP, LIPID ####[facility] Mgwhieandg2448 [place] [address]Dr. Garima Pulliam PROF 14(COMP METB)on 023 Albumin [Mass/Vol] 3.5 g/dL Normal 3.4-5.0 [facility] Comment on above: Performed By: #### C MP, BNP, LIPID ####[facility] Hvxpgjegbn9310 [place] [address]Dr. Garima Pulliam Albumin/Globulin [Mass ratio] 1.2 {ratio} Normal [facility] Comment on above: Performed By: #### C MP, BNP, LIPID ####[facility] Pfexwzpced0183 [place] [address]Dr. Garima Pulliam ALP [Catalytic activity/Vol] 82 U/L Normal 46-116 [facility] Comment on above: Performed By: #### C MP, BNP, LIPID ####[facility] Bzqpxqsccn1619 [place] [address]Dr. Garima Pulliam ALT [Catalytic activity/Vol] 33 U/L Normal 16-63 [facility] Comment on above: Performed By: #### C MP, BNP, LIPID ####[facility] Mpvikrwmgq1723 [place] [address]Dr. Garima Pulliam Anion gap [Moles/Vol] 9.9 mmol/L Normal [facility] Comment on above: Performed By: #### C MP, BNP, LIPID ####[facility] Tuuyxgcqow5[address] [place] [address]Dr. Garima Pulliam AST [Catalytic activity/Vol] 24 U/L Normal 15-37 [facility] Comment on above: Performed By: #### C MP, BNP, LIPID ####[facility] Ubmsfbmvlj8438 [place] [address]Dr. Garima Pulliam Bilirubin [Mass/Vol] 0.6 mg/dL Normal 0.2-1.0 [facility] Comment on above: Performed By: #### C MP, BNP, LIPID ####[facility] Nemzbzwxya0209 [place] [address]Dr. Garima Pulliam Calcium [Mass/Vol] 9.2 mg/dL Normal 8.5-10.1 [facility] Comment on above: Performed By: #### C MP, BNP, LIPID ####[facility] Bxhtmfpmvw2942 [place] [address]Dr. Garima Pulliam Chloride [Moles/Vol] 106 mmol/L Normal 98-107 [facility] Comment on above: Performed By: #### C MP, BNP, LIPID ####[facility] Gkcbnvudhp3727 [place] [address]Dr. Garima Pulliam CO2 [Moles/Vol] 32.3 mmol/L Critically high 21.0-32.0 [facility] Comment on above: Performed By: #### C MP, BNP, LIPID ####[facility] Amujtqgiuz5781 [place] [address]Dr. Garima Pulliam Creatinine [Mass/Vol] 0.70 mg/dL Normal 0.70-1.30 [facility] Comment on above: Performed By: #### C MP, BNP, LIPID ####[facility] Gyxbjzgrkr4132 [place] [address]Dr. Chapisrenu Heraclio EGFR-AF TURKS AND CAICOS ISLANDER >60 Normal >=60 [facility] Comment on above: Performed By: #### C MP, BNP, LIPID ####[facility] Kfqrtvwhzz2233 [place] [address]Dr. Garima Pulliam EGFR-NON AF TURKS AND CAICOS ISLANDER >60 Normal >=60 [facility] Comment on above: Performed By: #### C MP, BNP, LIPID ####[facility] Qlyneaqayg7638 [place] [address]Dr. Garima Pulliam Globulin (S) [Mass/Vol] 2.9 g/dL Normal [facility] Comment on above: Performed By: #### C MP, BNP, LIPID ####[facility] Rrspamryfz9832 [place] [address]Dr. Garima Pulliam Glucose [Mass/Vol] 111 mg/dL Critically high 74-106 [facility] Comment on above: Performed By: #### C MP, BNP, LIPID ####[facility] Tksstkqzht[address] [place], [place] [address]Dr. Garima Pulliam Potassium [Moles/Vol] 4.2 mmol/L Normal 3.5-5.1 [facility] Comment on above: Performed By: #### C MP, BNP, LIPID ####[facility] Tukxsvqxzj64[address] [place], [place] [address]Dr. Garima Pulliam Protein [Mass/Vol] 6.4 g/dL Normal 6.4-8.2 [facility] Comment on above: Performed By: #### C MP, BNP, LIPID ####[facility] Ppzgtcfhzz[address] [place], [place] [address]Dr. Garima Pulliam Sodium [Moles/Vol] 144 mmol/L Normal 136-145 [facility] Comment on above: Performed By: #### C MP, BNP, LIPID ####[facility] Adnsiqjagk0034[address] [place], [place] [address]Dr. Garima Pulliam Urea nitrogen [Mass/Vol] 7.0 mg/dL Normal 7.0-18.0 [facility] Comment on above: Performed By: #### C MP, BNP, LIPID ####[facility] Xosfqnhmom246[address] [place], [place] [address]Dr. Garima Pulliam Urea nitrogen/Creatinine [Mass ratio] 10.0 mg/mg Normal [facility] Comment on above: Performed By: #### C MP, BNP, LIPID ####[facility] Uekmgxtaxc517[address] [place], [place] [address]Dr. Garima Pulliam BNPon 03-22-2023 Natriuretic peptide B (Bld) [Mass/Vol] 103.0 pg/mL Normal <=900.0 [facility] Comment on above: Performed By: #### B COMMUNICATION SPEC, BMP ####[facility] Bwpttlcszg427[address] [place], [place] [address]Dr. Garima Pulliam CBC AUTO DIFFon 03-22-2023 BASO # 0.0 103/ul Normal 0.0-0.1 [facility] Comment on above: Performed By: #### C BC ####[facility] Ehtsydmths[address] [place], [place] [address]Dr. Garima Pulliam Basophils/100 WBC (Bld) 0.3 % Normal 0.2-2.0 [facility] Comment on above: Performed By: #### C BC ####[facility] Xawipqupyg934[address] [place], [place] [address]Dr. Garima Pulliam EO # 0.2 103/ul Normal 0.0-0.7 [facility] Comment on above: Performed By: #### C BC ####[facility] Gufogopjyn[address] [place], [place] [address]Dr. Garima Pulliam Eosinophils/100 WBC (Bld) 2.2 % Normal 0.9-7.0 [facility] Comment on above: Performed By: #### C BC ####[facility] Znmofrbeqh468[address] [place], [place] [address]Dr. Garima Pulliam Erythrocyte distribution width (RBC) [Ratio] 13.2 % Normal 11.0-15.0 [facility] Comment on above: Performed By: #### C BC ####[facility] Slklcsress[address] [place] [address]Dr. Garima Pulliam Hematocrit (Bld) [Volume fraction] 43.4 % Normal 42.0-54.0 [facility] Comment on above: Performed By: #### C BC ####[facility] Lgfyeqvkyk2497 [place] [address]Dr. Garima Heraclio Hemoglobin (Bld) [Mass/Vol] 14.3 g/dL Normal 14.0-18.0 [facility] Comment on above: Performed By: #### C BC ####[facility] Xgyoihlmuh786[address] [place], [place] [address]Dr. Garima Heraclio IG # 0.02 10e3/ul Normal 0.00-0.03 [facility] Comment on above: Performed By: #### C BC ####[facility] Uetxvabrjz[address] [place], [place] [address]Dr. Garima Pulliam IG % 0.3 % Normal 0.0-0.5 [facility] Comment on above: Performed By: #### C BC ####[facility] Bnwhytittz9[address] [place], [place] [address]Dr. Garima Heraclio LYMPH # 2.0 103/ul Normal 1.2-3.8 [facility] Comment on above: Performed By: #### C BC ####[facility] Pzwwypavju299[address] [place], [place] [address]Dr. Chapisrenu Pulliam Lymphocytes/100 WBC (Bld) 24.8 % Normal 20.5-60.0 [facility] Comment on above: Performed By: #### C BC ####[facility] Rdpyopqbni399[address] [place], [place] [address]Dr. Chapisrenu Pulliam MANUAL DIFF REQ NO Normal [facility] Comment on above: Performed By: #### C BC ####[facility] Kgllzwzvyg[address] [place], [place] [address]Dr. Garima Pulliam MCH (RBC) [Entitic mass] 30.0 pg Normal 25.9-34.0 [facility] Comment on above: Performed By: #### C BC ####[facility] Tfcrxnhosq6483 [place] [phone]. Garima Heraclio MCHC (RBC) [Mass/Vol] 32.9 g/dL Normal 29.9-35.2 [facility] Comment on above: Performed By: #### C BC ####[facility] Qjwvihpslq4815 [place] [phone]. Garima Pulliam MCV (RBC) [Entitic vol] 91.0 fL Normal 80.0-94.0 [facility] Comment on above: Performed By: #### C BC ####[facility] Fyxqtiqywk[address] [place], [place] [address]Dr. Garima Pulliam MONO # 0.8 103/ul Normal 0.3-0.8 [facility] Comment on above: Performed By: #### C BC ####[facility] Afrwbvqakn[address] [place], [place] [address]Dr. Garima Pulliam Monocytes/100 WBC (Bld) 9.7 % Normal 1.7-12.0 [facility] Comment on above: Performed By: #### C BC ####[facility] Ssobirglaj18[address] [place], [place] [address]Dr. Garima Pulliam NEUT # 4.9 103/ul Normal 1.4-6.5 [facility] Comment on above: Performed By: #### C BC ####[facility] Dxdxkhnlbm[address] [place], [place] [address]Dr. Garima Pulliam Neutrophils/100 WBC (Bld) 62.7 % Normal 43.0-75.0 [facility] Comment on above: Performed By: #### C BC ####[facility] Ifzveeqgvw515[address] [place], [place] [address]Dr. Garima Pulliam Platelet mean volume (Bld) [Entitic vol] 8.8 fL Critically low 9.5-13.5 [facility] Comment on above: Performed By: #### C BC ####[facility] Thfudezuzo[address] [place], [place] [address]Dr. Garima Pulliam PLT 198 103/ul Normal 150-450 [facility] Comment on above: Performed By: #### C BC ####[facility] Dgbrnhccix0978 [place] [phone]. Chapisrenu Pulliam RBC 4.77 106/ul Normal 4.70-6.10 [facility] Comment on above: Performed By: #### C BC ####[facility] Ifcmntntqc8209 [place] [phone]. Garima Pulliam WBC 7.9 103/ul Normal 4.0-11.0 [facility] Comment on above: Performed By: #### C BC ####[facility] Lusyggngpe6350 [place] [address]Dr. Garima Pulliam D-DIMERon 03-22-2023 D-DIMER 0.85 mg/L FEU Critically high <=0.59 [facility] Comment on above: Performed By: #### D DIM ####[facility] Kqtqtadqnr[address] [place], [place] [address]Dr. Garima Pulliam D-DIMER COMMENTS SEE BELOW Normal [facility] Comment on above: Result Comment: Incr [...] generalized hospitalization. Performed By: #### D DIM ####[facility] Pplaopxutw7595 [place] [address]Dr. Garima Pulliam PROF CHEM 8 (BAS METB)on Anion gap [Moles/Vol] 6.9 mmol/L Normal [facility] Comment on above: Performed By: #### B COMMUNICATION SPEC, BMP ####[facility] Uicsjgznkz7031 [place] [address]Dr. Garima Pulliam Calcium [Mass/Vol] 8.9 mg/dL Normal 8.5-10.1 [facility] Comment on above: Performed By: #### B COMMUNICATION SPEC, BMP ####[facility] Tzhhcwmfzz4786 [place] [phone]. Garima Pulliam Chloride [Moles/Vol] 101 mmol/L Normal 98-107 [facility] Comment on above: Performed By: #### B COMMUNICATION SPEC, BMP ####[facility] Wnhjitjlez0488 [place] [phone]. Garima Pulliam CO2 [Moles/Vol] 30.7 mmol/L Normal 21.0-32.[address] [facility] Comment on above: Performed By: #### B COMMUNICATION SPEC, BMP ####[facility] Gayfbbzrqd6946 [place] [phone]. Garima Pulliam Creatinine [Mass/Vol] 0.82 mg/dL Normal 0.70-1.30 [facility] Comment on above: Performed By: #### B COMMUNICATION SPEC, BMP ####[facility] Ajulslhhgn2493 [place] [address]Dr. Garima Pulliam EGFR-AF TURKS AND CAICOS ISLANDER >60 Normal >=[address] [facility] Comment on above: Performed By: #### B COMMUNICATION SPEC, BMP ####[facility] Glydjdrmdn2154 [place] [address]Dr. Garima Pulliam EGFR-NON AF TURKS AND CAICOS ISLANDER >60 Normal >=60 [facility] Comment on above: Performed By: #### B COMMUNICATION SPEC, BMP ####[facility] Nfecylljfl138[address] [place], [place] [address]Dr. Garima Pulliam Glucose [Mass/Vol] 339 mg/dL Critically high 74-106 [facility] Comment on above: Performed By: #### B COMMUNICATION SPEC, BMP ####[facility] Tpflgboxpf4791 [place] [phone]. Garima Pulliam Potassium [Moles/Vol] 3.6 mmol/L Normal 3.5-5.1 [facility] Comment on above: Performed By: #### B COMMUNICATION SPEC, BMP ####[facility] Dhsjmwjdlr7916 [place] [address]Dr. Garima Pulliam Sodium [Moles/Vol] 135 mmol/L Critically low 136-145 [facility] Comment on above: Performed By: #### B COMMUNICATION SPEC, BMP ####[facility] Jwlexfyqbu9290 [place] [phone]. Garima Pulliam Urea nitrogen [Mass/Vol] 11.0 mg/dL Normal 7.0-18.0 [facility] Comment on above: Performed By: #### B COMMUNICATION SPEC, BMP ####[facility] Coflkxfequ7542 [place] [phone]. Garima Pulliam Urea nitrogen/Creatinine [Mass ratio] 13.4 mg/mg Normal [facility] Comment on above: Performed By: #### B COMMUNICATION SPEC, BMP ####[facility] Glxatcuica[address] [place], [place] [address]Dr. Garima Pulliam US VERONICA DOP LEG BILon 023 US VERONICA DOP LEG BENOIT Normal [facility] BNPon 03-18-2023 Natriuretic peptide B (Bld) [Mass/Vol] 226.0 pg/mL Normal <=900.0 [facility] Comment on above: Performed By: #### B COMMUNICATION SPEC, BMP ####[facility] Zritsgvxpm[address] [place], [place] [address]Dr. Garima Pulliam CBC AUTO DIFFon 03-18-2023 BASO # 0.0 103/ul Normal 0.0-0.1 [facility] Comment on above: Performed By: #### C BC ####[facility] Mxqwrzltib[address] [place], [place] [address]Dr. Garima Heraclio Basophils/100 WBC (Bld) 0.2 % Normal 0.2-2.0 [facility] Comment on above: Performed By: #### C BC ####[facility] Owmslhyetu[address] [place], [place] [address]Dr. Garima Pulliam EO # 0.3 103/ul Normal 0.0-0.7 [facility] Comment on above: Performed By: #### C BC ####[facility] Jptdujobnk378[address] [place], [place] [address]Dr. Garima Heraclio Eosinophils/100 WBC (Bld) 2.5 % Normal 0.9-7.0 [facility] Comment on above: Performed By: #### C BC ####[facility] Desepmckoz[address] [place], [place] [address]Dr. Garima Pulliam Erythrocyte distribution width (RBC) [Ratio] 13.2 % Normal 11.0-15.0 [facility] Comment on above: Performed By: #### C BC ####[facility] Ojhenvurhf9674 [place] [address]Dr. Garima Pulliam Hematocrit (Bld) [Volume fraction] 45.8 % Normal 42.0-54.0 [facility] Comment on above: Performed By: #### C BC ####[facility] Rqisirfrzd4562 [place] [address]Dr. Garima Pulliam Hemoglobin (Bld) [Mass/Vol] 15.3 g/dL Normal 14.0-18.0 [facility] Comment on above: Performed By: #### C BC ####[facility] Ckqinsyvni722[address] [place], [place] [address]Dr. Garima Heraclio IG # 0.02 10e3/ul Normal 0.00-0.03 [facility] Comment on above: Performed By: #### C BC ####[facility] Yrwfjxzjok33[address] [place], [place] [address]Dr. Garima Pulliam IG % 0.2 % Normal 0.0-0.5 [facility] Comment on above: Performed By: #### C BC ####[facility] Vkwrhojsfa954[address] [place], [place] [address]Dr. Garima Heraclio LYMPH # 1.8 103/ul Normal 1.2-3.8 [facility] Comment on above: Performed By: #### C BC ####[facility] Utrkjpdaho7[address] [place], [place] [address]Dr. Chapisrenu Pulliam Lymphocytes/100 WBC (Bld) 18.3 % Critically low 20.5-60.0 [facility] Comment on above: Performed By: #### C BC ####[facility] Kxgtlfvqti1263[address] [place], [place] [address]Dr. Chapisrenu Pulliam MANUAL DIFF REQ NO Normal [facility] Comment on above: Performed By: #### C BC ####[facility] Rtjtacwujh92[address] [place], [place] [address]Dr. Garima Pulliam MCH (RBC) [Entitic mass] 30.5 pg Normal 25.9-34.0 [facility] Comment on above: Performed By: #### C BC ####[facility] Douajeadwm8188 [place] [phone]. Garima Pulliam MCHC (RBC) [Mass/Vol] 33.4 g/dL Normal 29.9-35.2 [facility] Comment on above: Performed By: #### C BC ####[facility] Tsouncbmgm3141 [place] [phone]. Garima Pulliam MCV (RBC) [Entitic vol] 91.2 fL Normal 80.0-94.0 [facility] Comment on above: Performed By: #### C BC ####[facility] Hmpggzuahg[address] [place], [place] [address]DrAdalberto Garima Heraclio MONO # 0.8 103/ul Normal 0.3-0.8 [facility] Comment on above: Performed By: #### C BC ####[facility] Xxwpmwkbfk169[address] [place], [place] [address]Dr. Garima Heraclio Monocytes/100 WBC (Bld) 7.6 % Normal 1.7-12.0 [facility] Comment on above: Performed By: #### C BC ####[facility] Kzkahnjeaz67[address] [place], [place] [address]Dr. Garima Pulliam NEUT # 7.0 103/ul Critically high 1.4-6.5 [facility] Comment on above: Performed By: #### C BC ####[facility] Kpatmswovm16[address] [place], [place] [address]DrAdalberto Garima Heraclio Neutrophils/100 WBC (Bld) 71.2 % Normal 43.0-75.0 [facility] Comment on above: Performed By: #### C BC ####[facility] Sqrxqxfzqg186[address] [place], [place] [address]Dr. Garima Pulliam Platelet mean volume (Bld) [Entitic vol] 8.9 fL Critically low 9.5-13.5 [facility] Comment on above: Performed By: #### C BC ####[facility] Ckzkxzfzhc3990 [place] [phone]. Garima Pulliam PLT 217 103/ul Normal 150-450 [facility] Comment on above: Performed By: #### C BC ####[facility] Zolkzvltfc06[address] [place], [place] [address]Dr. Garima Pulliam RBC 5.02 106/ul Normal 4.70-6.10 [facility] Comment on above: Performed By: #### C BC ####[facility] Ifgqhmhgpe[address] [place], [place] [address]Dr. Garmia Pulliam WBC 9.8 103/ul Normal 4.0-11.0 [facility] Comment on above: Performed By: #### C BC ####[facility] Rmzvatyvgm[address] [place], [place] [address]Dr. Garima Heraclio CRPon 03-18-2023 CRP 0.1 mg/dL Normal <=1.0 [facility] Comment on above: Performed By: #### C RP ####[facility] Xpxiftcsmk[address] [place], [place] [address]Dr. Garima Heraclio PROF CHEM 8 (BAS METB)on Anion gap [Moles/Vol] 10.4 mmol/L Normal [facility] Comment on above: Performed By: #### B COMMUNICATION SPEC, BMP ####[facility] Qyfmjbftiw[address] [place], [place] [address]Dr. Garima Heraclio Calcium [Mass/Vol] 8.8 mg/dL Normal 8.5-10.1 [facility] Comment on above: Performed By: #### B COMMUNICATION SPEC, BMP ####[facility] Kekdfuhmbv8925 [place] [address]Dr. Garima Pulliam Chloride [Moles/Vol] 97 mmol/L Critically low 98-107 [facility] Comment on above: Performed By: #### B COMMUNICATION SPEC, BMP ####[facility] Hdqhdaefoz9224 [place] [address]Dr. Garima Pulliam CO2 [Moles/Vol] 31.2 mmol/L Normal 21.0-32.0 [facility] Comment on above: Performed By: #### B COMMUNICATION SPEC, BMP ####[facility] Zepyczkzqa3246 [place] [phone]. Garima Pulliam Creatinine [Mass/Vol] 0.91 mg/dL Normal 0.70-1.30 [facility] Comment on above: Performed By: #### B COMMUNICATION SPEC, BMP ####[facility] Jxlofooicy8133 [place] [phone]. Garima Pulliam EGFR-AF TURKS AND CAICOS ISLANDER >60 Normal >=60 [facility] Comment on above: Performed By: #### B COMMUNICATION SPEC, BMP ####[facility] Xehrxkedck8825 [place] [phone]. Garima Pulliam EGFR-NON AF TURKS AND CAICOS ISLANDER >60 Normal >=60 [facility] Comment on above: Performed By: #### B COMMUNICATION SPEC, BMP ####[facility] Zqpuqgnjhq[address] [place], [place] [id number]. Garima Pulliam Glucose [Mass/Vol] 315 mg/dL Critically high 74-[address] [facility] Comment on above: Performed By: #### B COMMUNICATION SPEC, BMP ####[facility] Gangzcolcs[address] [place], [place] [id number]. Garima Pulliam Potassium [Moles/Vol] 3.6 mmol/L Normal 3.5-5.1 [facility] Comment on above: Performed By: #### B COMMUNICATION SPEC, BMP ####[facility] Rylvxrdadk[address] [place], [place] [id number]. Garima Pulliam Sodium [Moles/Vol] 135 mmol/L Critically low 136-145 [facility] Comment on above: Performed By: #### B COMMUNICATION SPEC, BMP ####[facility] Nnlejzlmfg[address] [place], [place] [id number]. Garima Pulliam Urea nitrogen [Mass/Vol] 7.0 mg/dL Normal 7.0-18.0 [facility] Comment on above: Performed By: #### B COMMUNICATION SPEC, BMP ####[facility] [address]uxvuglcoj[address] [place], [place] [id number]. Garima Pulliam Urea nitrogen/Creatinine [Mass ratio] 7.7 mg/mg Normal [facility] Comment on above: Performed By: #### B COMMUNICATION SPEC, BMP ####[facility] Vnlbhlcahp[address] [place], [place] [address]Dr. Garima Pulliam SED RATE WESTERGRENon 2022 SED RATE 8 mm/hr Normal <=20 [facility] Comment on above: Performed By: #### S EDR ####[facility] Rgitogohcg[address] [place], [place] [address]Dr. Garima Pulliam BNPon 03-16-2023 Natriuretic peptide B (Bld) [Mass/Vol] 241.0 pg/mL Normal <=900.0 [facility] Comment on above: Performed By: #### B COMMUNICATION SPEC, BMP, HSTROPN ####[facility] Cyglmbrhed[address] [place], [place] [address]Dr. Garima Heraclio CBC AUTO DIFFon 03-16-2023 BASO # 0.0 103/ul Normal 0.0-0.1 [facility] Comment on above: Performed By: #### C BC ####[facility] Fqzqnkckts[address] [place], [place] [address]Dr. Garima Heraclio Basophils/100 WBC (Bld) 0.2 % Normal 0.2-2.0 [facility] Comment on above: Performed By: #### C BC ####[facility] Azpfizeeob[address] [place], [place] [address]Dr. Chapisrenu Heraclio EO # 0.2 103/ul Normal 0.0-0.7 [facility] Comment on above: Performed By: #### C BC ####[facility] Iigahxjlln[address] [place], [place] [address]Dr. Garima Heraclio Eosinophils/100 WBC (Bld) 2.7 % Normal 0.9-7.0 [facility] Comment on above: Performed By: #### C BC ####[facility] Otzbijkthu[address] [place], [place] [address]Dr. Garima Heraclio Erythrocyte distribution width (RBC) [Ratio] 13.1 % Normal 11.0-15.0 [facility] Comment on above: Performed By: #### C BC ####[facility] Zcascmokjg[address] [place], [place] [address]Dr. Garima Heraclio Hematocrit (Bld) [Volume fraction] 41.8 % Critically low 42.0-54.0 [facility] Comment on above: Performed By: #### C BC ####[facility] [address]bdgtfvsaa[address] [place] [address]DrAdalberto Garima Pulliam Hemoglobin (Bld) [Mass/Vol] 14.0 g/dL Normal 14.0-18.0 [facility] Comment on above: Performed By: #### C BC ####[facility] Rkiqovdnah4549 [place] [address]DrAdalberto Pulliam IG # 0.03 10e3/ul Normal 0.00-0.03 [facility] Comment on above: Performed By: #### C BC ####[facility] Fwcmqqqmwx[address] [place], [place] [address]DrAdalberto Chapisrenu Pulliam IG % 0.3 % Normal 0.0-0.5 [facility] Comment on above: Performed By: #### C BC ####[facility] Tldddyhesn[address] [place], [place] [address]DrAdalberto Chapisrenu Pulliam LYMPH # 2.1 103/ul Normal 1.2-3.8 [facility] Comment on above: Performed By: #### C BC ####[facility] Rxhlnrvjaw445[address] [place], [place] [address]DrAdalberto Chapisrenu Pulliam Lymphocytes/100 WBC (Bld) 24.2 % Normal 20.5-60.0 [facility] Comment on above: Performed By: #### C BC ####[facility] Ycwoypbmlf[address] [place], [place] [address]DrAdalberto Pulliam MANUAL DIFF REQ NO Normal [facility] Comment on above: Performed By: #### C BC ####[facility] Usadhyvcjx0[address] [place], [place] [address]DrAdablerto Pulliam MCH (RBC) [Entitic mass] 30.2 pg Normal 25.9-34.0 [facility] Comment on above: Performed By: #### C BC ####[facility] Bvfzhtzsjr97[address] [place], [place] [address]DrAdalberto Pulliam MCHC (RBC) [Mass/Vol] 33.5 g/dL Normal 29.9-35.2 [facility] Comment on above: Performed By: #### C BC ####[facility] Iptkhnomke97[address] [place], [place] [address]DrAdalberto Pulliam MCV (RBC) [Entitic vol] 90.1 fL Normal 80.0-94.0 [facility] Comment on above: Performed By: #### C BC ####[facility] Onqqnhylnx9936[address] [place], [place] [address]DrAdalberto Pulliam MONO # 0.6 103/ul Normal 0.3-0.8 [facility] Comment on above: Performed By: #### C BC ####[facility] Jkmkiijlih513[address] [place], [place] [address]DrAdalberto Pulliam Monocytes/100 WBC (Bld) 7.4 % Normal 1.7-12.0 [facility] Comment on above: Performed By: #### C BC ####[facility] Momdndvyro[address] [place], [place] [address]DrAdalberto Pulliam NEUT # 5.6 103/ul Normal 1.4-6.5 [facility] Comment on above: Performed By: #### C BC ####[facility] Rqujejjpnt1135[address] [place], [place] [address]DrAdalberto Pulliam Neutrophils/100 WBC (Bld) 65.2 % Normal 43.0-75.0 [facility] Comment on above: Performed By: #### C BC ####[facility] Jqepnhainw[address] [place], [place] [address]DrAdalberto Pulliam Platelet mean volume (Bld) [Entitic vol] 8.7 fL Critically low 9.5-13.5 [facility] Comment on above: Performed By: #### C BC ####[facility] Ignpklcoqk95[address] [place], [place] [address]DrAdalberto Pulliam PLT 195 103/ul Normal 150-450 [facility] Comment on above: Performed By: #### C BC ####[facility] Qikzyzszeg639[address] [place], [place] [address]DrAdalberto Pulliam RBC 4.64 106/ul Critically low 4.70-6.10 [facility] Comment on above: Performed By: #### C BC ####[facility] Tncrlpdcri623[address] [place], [place] [address]Dr. Chapisrenu Pulliam WBC 8.6 103/ul Normal 4.0-11.0 [facility] Comment on above: Performed By: #### C BC ####[facility] Nxzviazoqs13[address] [place], [place] [address]Dr. Garima Pulliam PROF CHEM 8 (BAS METB)on Anion gap [Moles/Vol] 6.7 mmol/L Normal [facility] Comment on above: Performed By: #### B COMMUNICATION SPEC, BMP, HSTROPN ####[facility] Mtbzueibpm528[address] [place], [place] [address]Dr. Garima Pulliam Calcium [Mass/Vol] 8.8 mg/dL Normal 8.5-10.1 [facility] Comment on above: Performed By: #### B COMMUNICATION SPEC, BMP, HSTROPN ####[facility] Tlhvxbztsu549[address] [place], [place] [address]Dr. Garima Pulliam Chloride [Moles/Vol] 106 mmol/L Normal 98-107 [facility] Comment on above: Performed By: #### B COMMUNICATION SPEC, BMP, HSTROPN ####[facility] Quvdxjdmhh223[address] [place], [place] [address]Dr. Garima Pulliam CO2 [Moles/Vol] 31.4 mmol/L Normal 21.0-32.[address] [facility] Comment on above: Performed By: #### B COMMUNICATION SPEC, BMP, HSTROPN ####[facility] Pgutyjjoil907[address] [place], [place] [address]Dr. Garima Pulliam Creatinine [Mass/Vol] 0.75 mg/dL Normal 0.70-1.30 [facility] Comment on above: Performed By: #### B COMMUNICATION SPEC, BMP, HSTROPN ####[facility] Zppjgmpchd07[address] [place], [place] [address]Dr. Garima Pulliam EGFR-AF TURKS AND CAICOS ISLANDER >60 Normal >=[address] [facility] Comment on above: Performed By: #### B COMMUNICATION SPEC, BMP, HSTROPN ####[facility] Khrqaseimw3[address] [place] [address]Dr. Garima Pulliam EGFR-NON AF TURKS AND CAICOS ISLANDER >60 Normal >=60 [facility] Comment on above: Performed By: #### B COMMUNICATION SPEC, BMP, HSTROPN ####[facility] Atspmreykb5620 [place] [address]Dr. Garima Pulliam Glucose [Mass/Vol] 161 mg/dL Critically high 74-[address] [facility] Comment on above: Performed By: #### B COMMUNICATION SPEC, BMP, HSTROPN ####[facility] Ahfqmblhzl0408 [place] [address]Dr. Garima Pulliam Potassium [Moles/Vol] 4.1 mmol/L Normal 3.5-5.1 [facility] Comment on above: Performed By: #### B COMMUNICATION SPEC, BMP, HSTROPN ####[facility] Anultfawee8999 [place] [address]Dr. Garima Pulliam Sodium [Moles/Vol] 140 mmol/L Normal 136-145 [facility] Comment on above: Performed By: #### B COMMUNICATION SPEC, BMP, HSTROPN ####[facility] Ambpyuwdyj8649 [place] [address]Dr. Garima Pulliam Urea nitrogen [Mass/Vol] 7.0 mg/dL Normal 7.0-18.0 [facility] Comment on above: Performed By: #### B COMMUNICATION SPEC, BMP, HSTROPN ####[facility] Nqcojoyiye8640 [place] [address]Dr. Garima Pulliam Urea nitrogen/Creatinine [Mass ratio] 9.3 mg/mg Normal [facility] Comment on above: Performed By: #### B COMMUNICATION SPEC, BMP, HSTROPN ####[facility] Dvvccxlzlu07[address] [place], [place] [address]Dr. Garima Pulliam TROPONIN, HIGH SENSITIVITYon 03-16-2023 HSTROP 9.7 pg/mL Normal 4.0-76.1 [facility] Comment on above: Result Comment: CUT- OFF POINTS HAVE BEEN ESTABLISHED BASED ON THE FOURTH UNIVERSAL DEFINITIONS OF MYOCARDIALINFARCTION. THE UPPER REFERENCE LIMIT (URL) OF TROPONIN, DEFINED THE 99TH PERCENTILE OFcTnI DISTRIBUTION IN A REFERENCE POPULATION, HAS BEEN CONFIRMED THE DECISION THRESHOLDFOR [place] DIAGNOSIS. Performed By: #### B COMMUNICATION SPEC, BMP, HSTROPN ####[facility] Fcbiqxxqog9373 [place] [address]Dr. Garima Pulliam XR CHEST 1 Von 03-16-2023 XR CHEST 1 V Normal [facility] BNPon 03-06-2023 Natriuretic peptide B (Bld) [Mass/Vol] 111.0 pg/mL Normal <=900.0 [facility] Comment on above: Performed By: #### C MP, BNP, CK ####[facility] Gpandiegye340[address] [place], [place] [address]Dr. Garima Pulliam CBC AUTO DIFFon 03-06-2023 BASO # 0.0 103/ul Normal 0.0-0.1 [facility] Comment on above: Performed By: #### C BC ####[facility] Nxzksrgnrk4066[address] [place], [place] [address]Dr. Garima Heraclio Basophils/100 WBC (Bld) 0.2 % Normal 0.2-2.0 [facility] Comment on above: Performed By: #### C BC ####[facility] Qxwaotugcw9539[address] [place], [place] [address]Dr. Garima Pulliam EO # 0.3 103/ul Normal 0.0-0.7 [facility] Comment on above: Performed By: #### C BC ####[facility] Btlflzjqfz036[address] [place], [place] [address]Dr. Garima Heraclio Eosinophils/100 WBC (Bld) 3.5 % Normal 0.9-7.0 [facility] Comment on above: Performed By: #### C BC ####[facility] Jqbmnueuws9[address] [place], [place] [address]Dr. Garima Pulliam Erythrocyte distribution width (RBC) [Ratio] 13.3 % Normal 11.0-15.0 [facility] Comment on above: Performed By: #### C BC ####[facility] Pzbpyaopeh37[address] [place], [place] [address]Dr. Garima Pulliam Hematocrit (Bld) [Volume fraction] 43.7 % Normal 42.0-54.0 [facility] Comment on above: Performed By: #### C BC ####[facility] Etmimkxjmi8348 [place] [address]Dr. Garima Pulliam Hemoglobin (Bld) [Mass/Vol] 14.7 g/dL Normal 14.0-18.0 [facility] Comment on above: Performed By: #### C BC ####[facility] Nhecpfxecg9983 [place] [address]Dr. Garima Pulliam IG # 0.03 10e3/ul Normal 0.00-0.03 [facility] Comment on above: Performed By: #### C BC ####[facility] Vjlwgyxvpt0180 [place] [address]Dr. Garima Pulliam IG % 0.4 % Normal 0.0-0.5 [facility] Comment on above: Performed By: #### C BC ####[facility] Ktxphjuufo1944[address] [place], [place] [address]Dr. Garima Pulliam LYMPH # 2.0 103/ul Normal 1.2-3.8 [facility] Comment on above: Performed By: #### C BC ####[facility] Nyfuajtjis1254[address] [place], [place] [address]Dr. Garima Pulliam Lymphocytes/100 WBC (Bld) 23.7 % Normal 20.5-60.0 [facility] Comment on above: Performed By: #### C BC ####[facility] Ellwujmhhn3364[address] [place], [place] [address]Dr. Garima Pulliam MANUAL DIFF REQ NO Normal [facility] Comment on above: Performed By: #### C BC ####[facility] Ijkezzayui5244 [place] [address]Dr. Garima Pulliam MCH (RBC) [Entitic mass] 30.1 pg Normal 25.9-34.0 [facility] Comment on above: Performed By: #### C BC ####[facility] Yrpuqcbdqq88[address] [place], [place] [address]Dr. Garima Pulliam MCHC (RBC) [Mass/Vol] 33.6 g/dL Normal 29.9-35.2 [facility] Comment on above: Performed By: #### C BC ####[facility] Prmkekuopm8209 [place] [address]DrAdalberto Pulliam MCV (RBC) [Entitic vol] 89.4 fL Normal 80.0-94.0 [facility] Comment on above: Performed By: #### C BC ####[facility] Wgfgueceee99[address] [place], [place] [address]DrAdalberto Pulliam MONO # 0.8 103/ul Normal 0.3-0.8 [facility] Comment on above: Performed By: #### C BC ####[facility] Lecoqifhat[address] [place], [place] [address]DrAdalberto Pulliam Monocytes/100 WBC (Bld) 9.0 % Normal 1.7-12.0 [facility] Comment on above: Performed By: #### C BC ####[facility] Kvtgpqymbs22[address] [place], [place] [address]Dr. Garima Pulliam NEUT # 5.4 103/ul Normal 1.4-6.5 [facility] Comment on above: Performed By: #### C BC ####[facility] Untdfklyaz[address] [place], [place] [address]DrAdalberto Pulliam Neutrophils/100 WBC (Bld) 63.2 % Normal 43.0-75.0 [facility] Comment on above: Performed By: #### C BC ####[facility] Jtbovkvkrn9813[address] [place], [place] [address]DrAdalberto Pulliam Platelet mean volume (Bld) [Entitic vol] 9.0 fL Critically low 9.5-13.5 [facility] Comment on above: Performed By: #### C BC ####[facility] Xqtgvyhvmh9[address] [place], [place] [address]DrAdalberto Pulliam PLT 218 103/ul Normal 150-450 [facility] Comment on above: Performed By: #### C BC ####[facility] Nbkplceyud65[address] [place], [place] [address]DrAdalberto Pulliam RBC 4.89 106/ul Normal 4.70-6.10 [facility] Comment on above: Performed By: #### C BC ####[facility] Koxdmgflzs3584 [place] [address]Dr. Garima Pulliam WBC 8.5 103/ul Normal 4.0-11.0 [facility] Comment on above: Performed By: #### C BC ####[facility] Throuztbqd3912 [place] [address]Dr. Garima Heraclio CPKon 03-06-2023 CK [Catalytic activity/Vol] 191 U/L Normal 39-308 [facility] Comment on above: Performed By: #### C MP, BNP, CK ####[facility] Lgkiqwudvh7[address] [place], [place] [address]Dr. Garima Pulliam PROF 14(COMP METB)on 023 Albumin [Mass/Vol] 3.6 g/dL Normal 3.4-5.0 [facility] Comment on above: Performed By: #### C MP, BNP, CK ####[facility] Ydzvofdxuz8575 [place] [address]Dr. Garima Pulliam Albumin/Globulin [Mass ratio] 1.2 {ratio} Normal [facility] Comment on above: Performed By: #### C MP, BNP, CK ####[facility] Kflowyyvvd5593 [place] [address]Dr. Garima Pulliam ALP [Catalytic activity/Vol] 91 U/L Normal 46-116 [facility] Comment on above: Performed By: #### C MP, BNP, CK ####[facility] Mssioseqaj9792 [place] [address]Dr. Garima Pulliam ALT [Catalytic activity/Vol] 33 U/L Normal 16-63 [facility] Comment on above: Performed By: #### C MP, BNP, CK ####[facility] Wejktdqydh2634 [place] [address]Dr. Garima Pulliam Anion gap [Moles/Vol] 10.3 mmol/L Normal [facility] Comment on above: Performed By: #### C MP, BNP, CK ####[facility] Jgdqawlbsv5035 [place] [address]Dr. Garima Pulliam AST [Catalytic activity/Vol] 17 U/L Normal 15-37 [facility] Comment on above: Performed By: #### C MP, BNP, CK ####[facility] Xjnaharfnp4932 [place] [address]Dr. Garima Pulliam Bilirubin [Mass/Vol] 0.4 mg/dL Normal 0.2-1.0 [facility] Comment on above: Performed By: #### C MP, BNP, CK ####[facility] Wqmwaeurts0663 [place] [address]Dr. Garima Pulliam Calcium [Mass/Vol] 9.1 mg/dL Normal 8.5-10.1 [facility] Comment on above: Performed By: #### C MP, BNP, CK ####[facility] Vtiyzpiwtf[address] [place], [place] [address]Dr. Garima Pulliam Chloride [Moles/Vol] 102 mmol/L Normal 98-107 [facility] Comment on above: Performed By: #### C MP, BNP, CK ####[facility] Zctbsimpdz5122 [place] [address]Dr. Garima Pulliam CO2 [Moles/Vol] 29.7 mmol/L Normal 21.0-32.[address] [facility] Comment on above: Performed By: #### C MP, BNP, CK ####[facility] Zkskllrrsu9895 [place] [address]Dr. Garima Pulliam Creatinine [Mass/Vol] 0.79 mg/dL Normal 0.70-1.30 [facility] Comment on above: Performed By: #### C MP, BNP, CK ####[facility] Qivdldpibv8415 [place] [address]Dr. Garima Pulliam EGFR-AF TURKS AND CAICOS ISLANDER >60 Normal >=[address] [facility] Comment on above: Performed By: #### C MP, BNP, CK ####[facility] Bgemifpequ4193 [place] [address]Dr. Garima Pulliam EGFR-NON AF TURKS AND CAICOS ISLANDER >60 Normal >=60 [facility] Comment on above: Performed By: #### C MP, BNP, CK ####[facility] Nxgijukely4667 [place] [address]Dr. Garima Pulliam Globulin (S) [Mass/Vol] 3.0 g/dL Normal [facility] Comment on above: Performed By: #### C MP, BNP, CK ####[facility] Sxuwfhnqsj1727 [place] [address]Dr. Garima Pulliam Glucose [Mass/Vol] 202 mg/dL Critically high 74-[address] [facility] Comment on above: Performed By: #### C MP, BNP, CK ####[facility] Qbiljwozja18[address] [place], [place] [address]Dr. Garima Pulliam Potassium [Moles/Vol] 4.0 mmol/L Normal 3.5-5.1 [facility] Comment on above: Performed By: #### C MP, BNP, CK ####[facility] Kijqmzcugo[address] [place], [place] [address]Dr. Garima Pulliam Protein [Mass/Vol] 6.6 g/dL Normal 6.4-8.2 [facility] Comment on above: Performed By: #### C MP, BNP, CK ####[facility] Xyarqdihsl[address] [place], [place] [address]Dr. Garima Pulliam Sodium [Moles/Vol] 138 mmol/L Normal 136-145 [facility] Comment on above: Performed By: #### C MP, BNP, CK ####[facility] Fhpdgymueo[address] [place], [place] [address]Dr. Garima Pulliam Urea nitrogen [Mass/Vol] 10.0 mg/dL Normal 7.0-18.0 [facility] Comment on above: Performed By: #### C MP, BNP, CK ####[facility] Xupcjohxai[address] [place], [place] [address]Dr. Garima Pulliam Urea nitrogen/Creatinine [Mass ratio] 12.7 mg/mg Normal [facility] Comment on above: Performed By: #### C MP, BNP, CK ####[facility] Vmedwvldpy[address] [place], [place] [address]DrAdalberto Pulliam US VERONICA DOP LEG BILon 023 US VERONICA DOP LEG BENOIT Normal [facility] CBC AUTO DIFFon 01-13-2023 BASO # 0.0 103/ul Normal 0.0-0.1 [facility] Comment on above: Performed By: #### C BC ####[facility] Hsaoycrugc6750 [place] [address]DrAdalberto Pulliam Basophils/100 WBC (Bld) 0.0 % Critically low 0.2-2.0 [facility] Comment on above: Performed By: #### C BC ####[facility] Ixvsuaawdq2684 [place] [address]DrAdalberto Pulliam EO # 0.0 103/ul Normal 0.0-0.7 [facility] Comment on above: Performed By: #### C BC ####[facility] Zaswuswgof8518 [place] [address]DrAdalberto Pulliam Eosinophils/100 WBC (Bld) 0.0 % Critically low 0.9-7.0 [facility] Comment on above: Performed By: #### C BC ####[facility] Vluhlknthx8790 [place] [address]DrAdalberto Pulliam Erythrocyte distribution width (RBC) [Ratio] 13.2 % Normal 11.0-15.0 [facility] Comment on above: Performed By: #### C BC ####[facility] Vgvutkygem2955 [place] [address]DrAdalberto Pulliam Hematocrit (Bld) [Volume fraction] 46.7 % Normal 42.0-54.0 [facility] Comment on above: Performed By: #### C BC ####[facility] Rqewehiazx0298 [place] [address]DrAdalberto Pulliam Hemoglobin (Bld) [Mass/Vol] 15.6 g/dL Normal 14.0-18.0 [facility] Comment on above: Performed By: #### C BC ####[facility] Tifufryjqc7352 [place] [address]DrAdalberto Pulliam IG # 0.01 10e3/ul Normal 0.00-0.03 [facility] Comment on above: Performed By: #### C BC ####[facility] Vsyzwlikaa6045 [place] [address]DrAdalberto Chapisrenu Pulliam IG % 0.2 % Normal 0.0-0.5 [facility] Comment on above: Performed By: #### C BC ####[facility] Bcisavwhpj0581 [place] [id number] Chapisrenu Pulliam LYMPH # 0.8 103/ul Critically low 1.2-3.8 [facility] Comment on above: Performed By: #### C BC ####[facility] Vhvqekoxux4952 [place] [address]DrAdalberto Pulliam Lymphocytes/100 WBC (Bld) 12.7 % Critically low 20.5-60.0 [facility] Comment on above: Performed By: #### C BC ####[facility] Pqezptdcyl9821 [place] [address]DrAdalberto Pulliam MANUAL DIFF REQ NO Normal [facility] Comment on above: Performed By: #### C BC ####[facility] Emcyikwobb5195 [place] [phone] Garima Heraclio MCH (RBC) [Entitic mass] 30.2 pg Normal 25.9-34.0 [facility] Comment on above: Performed By: #### C BC ####[facility] Raffvtorco9514 [place] [address]DrAdalberto Chapisrenu Pulliam MCHC (RBC) [Mass/Vol] 33.4 g/dL Normal 29.9-35.2 [facility] Comment on above: Performed By: #### C BC ####[facility] Cvuxcvpkul3284 [place] [phone] Pulliam MCV (RBC) [Entitic vol] 90.3 fL Normal 80.0-94.0 [facility] Comment on above: Performed By: #### C BC ####[facility] Yqrlfzrstr2248 [place] [phone] Pulliam MONO # 0.1 103/ul Critically low 0.3-0.8 [facility] Comment on above: Performed By: #### C BC ####[facility] Buuruvzvlv5780 [place] [address]Dr. Garima Pulliam Monocytes/100 WBC (Bld) 0.9 % Critically low 1.7-12.0 [facility] Comment on above: Performed By: #### C BC ####[facility] Fensjnlmof2205 [place] [address]Dr. Garima Pulliam NEUT # 5.6 103/ul Normal 1.4-6.5 [facility] Comment on above: Performed By: #### C BC ####[facility] Vkevgvihsa0709 [place] [address]Dr. Garima Pulliam Neutrophils/100 WBC (Bld) 86.2 % Critically high 43.0-75.0 [facility] Comment on above: Performed By: #### C BC ####[facility] Ybrqnciidb5225 [place] [address]Dr. Garima Pulliam Platelet mean volume (Bld) [Entitic vol] 9.1 fL Critically low 9.5-13.5 [facility] Comment on above: Performed By: #### C BC ####[facility] Endihhmcel[address] [place], [place] [address]Dr. Garima Pulliam PLT 169 103/ul Normal 150-450 [facility] Comment on above: Performed By: #### C BC ####[facility] Plucjksolk5549 [place] [address]Dr. Garima Pulliam RBC 5.17 106/ul Normal 4.70-6.10 [facility] Comment on above: Performed By: #### C BC ####[facility] Rddwmrsfwo4584 [place] [phone]. Garima Pulliam WBC 6.5 103/ul Normal 4.0-11.0 [facility] Comment on above: Performed By: #### C BC ####[facility] [address]nfjtrfrhj[address] [place], [place] [address]Dr. Garima Pulliam D-DIMERon 01-13-2023 D-DIMER 0.41 mg/L FEU Normal <=0.59 [facility] Comment on above: Performed By: #### D DIM ####[facility] Tbdynxwmmw2214 [place] [address]Dr. Garima Pulliam D-DIMER COMMENTS SEE BELOW Normal [facility] Comment on above: Result Comment: Incr [...] generalized hospitalization. Performed By: #### D DIM ####[facility] Zweardjohr4972 [place] [address]Dr. Garima Pulliam PROF 14(COMP METB)on 023 Albumin [Mass/Vol] 3.4 g/dL Normal 3.4-5.0 [facility] Comment on above: Performed By: #### C MP ####[facility] Fjqzumhztw2308 [place] [address]Dr. Garima Pullaim Albumin/Globulin [Mass ratio] 1.3 {ratio} Normal [facility] Comment on above: Performed By: #### C MP ####[facility] Vmmkiqmbjx4940 [place] [address]Dr. Garima Pulliam ALP [Catalytic activity/Vol] 83 U/L Normal 46-116 [facility] Comment on above: Performed By: #### C MP ####[facility] Ltttyqcyyr7121 [place] [address]Dr. Garima Pulliam ALT [Catalytic activity/Vol] 25 U/L Normal 16-63 [facility] Comment on above: Performed By: #### C MP ####[facility] Bxigpvelqn4618 [place] [address]Dr. Garima Pulliam Anion gap [Moles/Vol] 14.5 mmol/L Normal [facility] Comment on above: Performed By: #### C MP ####[facility] Nazoiykcaw1541 [place] [phone]. Garima Pulliam AST [Catalytic activity/Vol] 19 U/L Normal 15-37 [facility] Comment on above: Performed By: #### C MP ####[facility] Oxdrzxaeoh2228 [place] [phone]. Garima Pulliam Bilirubin [Mass/Vol] 0.4 mg/dL Normal 0.2-1.0 [facility] Comment on above: Performed By: #### C MP ####[facility] Tmmwztqvti5287 [place] [phone]. Garima Pulliam Calcium [Mass/Vol] 8.7 mg/dL Normal 8.5-10.1 [facility] Comment on above: Performed By: #### C MP ####[facility] Ykwtfjagqy5717 [place] [phone]. Garima Pulliam Chloride [Moles/Vol] 104 mmol/L Normal 98-107 [facility] Comment on above: Performed By: #### C MP ####[facility] Nsliglwuzy6315 [place] [phone]. Garima Pulliam CO2 [Moles/Vol] 24.5 mmol/L Normal 21.0-32.[address] [facility] Comment on above: Performed By: #### C MP ####[facility] Firspmngdl1879 [place] [phone]. Garima Pulliam Creatinine [Mass/Vol] 0.70 mg/dL Normal 0.70-1.30 [facility] Comment on above: Performed By: #### C MP ####[facility] Xukoxajgry8310 [place] [phone]. Garima Pulliam EGFR-AF TURKS AND CAICOS ISLANDER >60 Normal >=[address] [facility] Comment on above: Performed By: #### C MP ####[facility] Gyqyvocjxx2814 [place] [phone]. Garima Pulliam EGFR-NON AF TURKS AND CAICOS ISLANDER >60 Normal >=60 [facility] [facility] Comment on above: Performed By: #### C MP ####[facility] [address]cp[address] [place], [place] [id number]. Garima Pulliam Globulin (S) [Mass/Vol] 2.6 g/dL Normal [facility] Comment on above: Performed By: #### C MP ####[facility] Lwhxhlloat[address] [place], [place] [address]Dr. Garima Pulliam Glucose [Mass/Vol] 196 mg/dL Critically high 74-[address] [facility] Comment on above: Performed By: #### C MP ####[facility] Stmvfdlljv[address] [place], [place] [address]Dr. Garima Pulliam Potassium [Moles/Vol] 4.0 mmol/L Normal 3.5-5.1 [facility] Comment on above: Performed By: #### C MP ####[facility] Dhyidtgpti[address] [place], [place] [address]Dr. Garima Pulliam Protein [Mass/Vol] 6.0 g/dL Critically low 6.4-8.2 [facility] Comment on above: Performed By: #### C MP ####[facility] Ijiprnqvgt[address] [place], [place] [address]Dr. Garima Pulliam Sodium [Moles/Vol] 139 mmol/L Normal 136-145 [facility] Comment on above: Performed By: #### C MP ####[facility] Qtbduseuce[address] [place], [place] [address]Dr. Garima Pulliam Urea nitrogen [Mass/Vol] 7.0 mg/dL Normal 7.0-18.0 [facility] Comment on above: Performed By: #### C MP ####[facility] Heujlrmxha93[address] [place], [place] [address]Dr. Garima Pulliam Urea nitrogen/Creatinine [Mass ratio] 10.0 mg/mg Normal [facility] Comment on above: Performed By: #### C MP ####[facility] Sloyftwolt[address] [place], [place] [address]Dr. Garima Pulliam BNPon 01-12-2023 Natriuretic peptide B (Bld) [Mass/Vol] 141.0 pg/mL Normal <=900.0 [facility] Comment on above: Performed By: #### C MP, BNP, HSTROPN ####[facility] Eybongkmwb60[address] [place] [phone]. Garima Heraclio CBC AUTO DIFFon 01-12-2023 BASO # 0.0 103/ul Normal 0.0-0.1 [facility] Comment on above: Performed By: #### C BC ####[facility] Xzzpnukvzl[address] [place], [place] [id number]. Garima Pulliam Basophils/100 WBC (Bld) 0.2 % Normal 0.2-2.0 [facility] Comment on above: Performed By: #### C BC ####[facility] Nlpwvwseru[address] [place], [place] [address]Dr. Garima Pulliam EO # 0.2 103/ul Normal 0.0-0.7 [facility] Comment on above: Performed By: #### C BC ####[facility] Auhhftndos[address] [place], [place] [address]Dr. Garima Pulliam Eosinophils/100 WBC (Bld) 2.7 % Normal 0.9-7.0 [facility] Comment on above: Performed By: #### C BC ####[facility] Nunrpbhpqn[address] [place], [place] [address]Dr. Chapisrenu Pulliam Erythrocyte distribution width (RBC) [Ratio] 13.3 % Normal 11.0-15.0 [facility] Comment on above: Performed By: #### C BC ####[facility] Tqrmohaspd[address] [place], [place] [address]Dr. Garima Pulliam Hematocrit (Bld) [Volume fraction] 42.3 % Normal 42.0-54.0 [facility] Comment on above: Performed By: #### C BC ####[facility] Bckahpbqsa[address] [place], [place] [address]Dr. Chapisrenu Pulliam Hemoglobin (Bld) [Mass/Vol] 14.3 g/dL Normal 14.0-18.0 [facility] Comment on above: Performed By: #### C BC ####[facility] Vnzdzqebct[address] [place], [place] [address]Dr. Garima Pulliam IG # 0.02 10e3/ul Normal 0.00-0.03 [facility] Comment on above: Performed By: #### C BC ####[facility] Kkyqevatgx5133 [place] [phone]. Chapisrenu Pulliam IG % 0.2 % Normal 0.0-0.5 [facility] Comment on above: Performed By: #### C BC ####[facility] Ogpccvlqyi2792 [place] [phone]. Garima Pulliam LYMPH # 2.6 103/ul Normal 1.2-3.8 [facility] Comment on above: Performed By: #### C BC ####[facility] Votjdmhtap[address] [place] [address]Dr. Chapisrenu Pulliam Lymphocytes/100 WBC (Bld) 29.6 % Normal 20.5-60.0 [facility] Comment on above: Performed By: #### C BC ####[facility] Zpngysvjqn40[address] [place] [address]Dr. Garima Pulliam MANUAL DIFF REQ NO Normal [facility] Comment on above: Performed By: #### C BC ####[facility] Yuwkdsmrby[address] [place] [address]Dr. Garima Pulliam MCH (RBC) [Entitic mass] 30.2 pg Normal 25.9-34.0 [facility] Comment on above: Performed By: #### C BC ####[facility] Aohwpaixmx7[address] [place] [address]Dr. Garima Pulliam MCHC (RBC) [Mass/Vol] 33.8 g/dL Normal 29.9-35.2 [facility] Comment on above: Performed By: #### C BC ####[facility] Piejzdijdx[address] [place], [place] [address]Dr. Garima Pulliam MCV (RBC) [Entitic vol] 89.2 fL Normal 80.0-94.0 [facility] Comment on above: Performed By: #### C BC ####[facility] Hmsoedsuiw[address] [place], [place] [address]Dr. Garima Pulliam MONO # 0.7 103/ul Normal 0.3-0.8 [facility] Comment on above: Performed By: #### C BC ####[facility] Wrbtstwejt1702 [place] [phone]. Garima Pulliam Monocytes/100 WBC (Bld) 8.3 % Normal 1.7-12.0 [facility] Comment on above: Performed By: #### C BC ####[facility] Lmfwldkywt8599 [place] [phone]. Garima Pulliam NEUT # 5.1 103/ul Normal 1.4-6.5 [facility] Comment on above: Performed By: #### C BC ####[facility] Hlrsbhthqj0377 [place] [phone]. Garima Pulliam Neutrophils/100 WBC (Bld) 59.0 % Normal 43.0-75.0 [facility] Comment on above: Performed By: #### C BC ####[facility] Tyrpnbegws[address] [place] [address]Dr. Garima Pulliam Platelet mean volume (Bld) [Entitic vol] 8.7 fL Critically low 9.5-13.5 [facility] Comment on above: Performed By: #### C BC ####[facility] Cipoasaykh7570 [place] [phone]. Garima Pulliam PLT 182 103/ul Normal 150-450 [facility] Comment on above: Performed By: #### C BC ####[facility] Nwjemrxetp0675 [place] [phone]. Garima Pulliam RBC 4.74 106/ul Normal 4.70-6.10 [facility] Comment on above: Performed By: #### C BC ####[facility] Smqjwnjegw8882 [place] [phone]. Garima Pulliam WBC 8.7 103/ul Normal 4.0-11.0 [facility] Comment on above: Performed By: #### C BC ####[facility] Gtbqwknrtn0184 [place] [phone]. Garima Pulliam [facility]-25 SARS-CoV-2 (COVID-19) RNA MARIE+probe Ql (Unsp spec) Not detected Normal NOT DETECTED [facility] Comment on above: Result Comment: When [...] for this test is supported by the [place] of Health and Human Service's declaration that [...] be used). Performed By: #### C VDTB ####[facility] Ezylkwexox60[address] [place] [address]Dr. Garima Pulliam PROF 14(COMP METB)on 023 Albumin [Mass/Vol] 3.6 g/dL Normal 3.4-5.0 [facility] Comment on above: Performed By: #### C MP, BNP, HSTROPN ####[facility] Fhyjcuasut38[address] [place] [address]Dr. Garima Pulliam Albumin/Globulin [Mass ratio] 1.5 {ratio} Normal [facility] Comment on above: Performed By: #### C MP, BNP, HSTROPN ####[facility] Uipawerxsr4[address] [place] [address]Dr. Garima Pulliam ALP [Catalytic activity/Vol] 79 U/L Normal 46-116 [facility] Comment on above: Performed By: #### C MP, BNP, HSTROPN ####[facility] Xoxsqaswue4770 [place] [address]Dr. Garima Pulliam ALT [Catalytic activity/Vol] 27 U/L Normal 16-63 [facility] Comment on above: Performed By: #### C MP, BNP, HSTROPN ####[facility] Xistuqjuce4644 [place] [address]Dr. Garima Pulliam Anion gap [Moles/Vol] 11.7 mmol/L Normal [facility] Comment on above: Performed By: #### C MP, BNP, HSTROPN ####[facility] Xvqlcycsgo6821 [place] [address]Dr. Garima Pulliam AST [Catalytic activity/Vol] 21 U/L Normal 15-37 [facility] Comment on above: Performed By: #### C MP, BNP, HSTROPN ####[facility] Thxoagavca7756 [place] [address]Dr. Garima Pulliam Bilirubin [Mass/Vol] 0.3 mg/dL Normal 0.2-1.0 [facility] Comment on above: Performed By: #### C MP, BNP, HSTROPN ####[facility] Guxjxrwnyi[address] [place], [place] [address]Dr. Garima Pulliam Calcium [Mass/Vol] 8.9 mg/dL Normal 8.5-10.1 [facility] Comment on above: Performed By: #### C MP, BNP, HSTROPN ####[facility] Jtvjiuqlbk8638[address] [place], [place] [address]Dr. Garima Pulliam Chloride [Moles/Vol] 107 mmol/L Normal 98-107 [facility] Comment on above: Performed By: #### C MP, BNP, HSTROPN ####[facility] Uvpamunrtg5634[address] [place], [place] [address]Dr. Garima Pulliam CO2 [Moles/Vol] 26.0 mmol/L Normal 21.0-32.[address] [facility] Comment on above: Performed By: #### C MP, BNP, HSTROPN ####[facility] Giapzlmvgq[address]24[address] [place], [place] [address]Dr. Garima Pulliam Creatinine [Mass/Vol] 0.65 mg/dL Critically low 0.70-1.30 [facility] Comment on above: Performed By: #### C MP, BNP, HSTROPN ####[facility] Tbbtnsfevs9008 [place] [address]Dr. Garima Pulliam EGFR-AF TURKS AND CAICOS ISLANDER >60 Normal >=[address] [facility] Comment on above: Performed By: #### C MP, BNP, HSTROPN ####[facility] Saiozxbwqs023[address] [place] [address]Dr. Garima Pulliam EGFR-NON AF TURKS AND CAICOS ISLANDER >60 Normal >=60 [facility] Comment on above: Performed By: #### C MP, BNP, HSTROPN ####[facility] Qenztdeohp[address] [place], [place] [address]Dr. Garima Pulliam Globulin (S) [Mass/Vol] 2.4 g/dL Normal [facility] Comment on above: Performed By: #### C MP, BNP, HSTROPN ####[facility] Aayzxsemvn[address] [place], [place] [address]Dr. Garima Pulliam Glucose [Mass/Vol] 85 mg/dL Normal 74-106 [facility] Comment on above: Performed By: #### C MP, BNP, HSTROPN ####[facility] Cqylbluida24[address] [place], [place] [address]Dr. Garima Pulliam Potassium [Moles/Vol] 3.7 mmol/L Normal 3.5-5.1 [facility] Comment on above: Performed By: #### C MP, BNP, HSTROPN ####[facility] Dmvnnoniae[address] [place], [place] [address]Dr. Garima Pulliam Protein [Mass/Vol] 6.0 g/dL Critically low 6.4-8.2 [facility] Comment on above: Performed By: #### C MP, BNP, HSTROPN ####[facility] Ufgmkcatla[address] [place], [place] [address]Dr. Garima Pulliam Sodium [Moles/Vol] 141 mmol/L Normal 136-145 [facility] Comment on above: Performed By: #### C MP, BNP, HSTROPN ####[facility] Fdszhmmysj[address] [place], [place] [address]Dr. Garima Pulliam Urea nitrogen [Mass/Vol] 5.0 mg/dL Critically low 7.0-18.0 [facility] Comment on above: Performed By: #### C MP, BNP, HSTROPN ####[facility] Qsqnpjpunt9353 [place] [address]Dr. Garima Pulliam Urea nitrogen/Creatinine [Mass ratio] 7.7 mg/mg Normal [facility] Comment on above: Performed By: #### C MP, BNP, HSTROPN ####[facility] Rpfevbmgjs[address] [place], [place] [address]Dr. Garima Pulliam PROTIMEon 01-12-2023 INR Coag (PPP) [Relative time] 1.16 {INR} Normal [facility] Comment on above: Performed By: #### P TT, PT ####[facility] Uehcebe[address] [place] [address]. Garima Pulliam INR GUIDELINES SEE BELOW Normal [facility] Comment on above: Result Comment: WESLEY RED INR: 2.0 - 3.0 CONDITIONS NOT LISTED BELOW 2.5 - 3.5 FOR PROSTHETIC HEART VALVE REPLACEMENT 2.5 - 3.5 RECURRENT THROMBOSIS Performed By: #### P TT, PT ####[facility] Ugosetpjcz[address] [place], [place] [address]Dr. Garima Pulliam PT Coag (PPP) [Time] 12.2 s Critically high 9.0-11.6 [facility] Comment on above: Performed By: #### P TT, PT ####[facility] Hpfixxvegr[address] [place], [place] [address]Dr. Garima Pulliam PTTon 01-12-2023 aPTT Coag (Bld) [Time] 29.1 s Normal 22.3-36.2 [facility] Comment on above: Performed By: #### P TT, PT ####[facility] Eernitcaht[address] [place], [place] [address]Dr. Garima Pulliam TROPONIN, HIGH SENSITIVITYon 01-12-2023 HSTROP 10.3 pg/mL Normal 4.0-76.1 [facility] Comment on above: Result Comment: CUT- OFF POINTS HAVE BEEN ESTABLISHED BASED ON THE FOURTH UNIVERSAL DEFINITIONS OF MYOCARDIALINFARCTION. THE UPPER REFERENCE LIMIT (URL) OF TROPONIN, DEFINED THE 99TH PERCENTILE OFcTnI DISTRIBUTION IN A REFERENCE POPULATION, HAS BEEN CONFIRMED THE DECISION THRESHOLDFOR [place] DIAGNOSIS. Performed By: #### H STROPN ####[facility] Libcksuhkt[address] [place] [address]Dr. Garima Pulliam HSTROP 9.2 pg/mL Normal 4.0-76.1 [facility] Comment on above: Result Comment: CUT- OFF POINTS HAVE BEEN ESTABLISHED BASED ON THE FOURTH UNIVERSAL DEFINITIONS OF MYOCARDIALINFARCTION. THE UPPER REFERENCE LIMIT (URL) OF TROPONIN, DEFINED THE 99TH PERCENTILE OFcTnI DISTRIBUTION IN A REFERENCE POPULATION, HAS BEEN CONFIRMED THE DECISION THRESHOLDFOR [place] DIAGNOSIS. Performed By: #### C MP, BNP, HSTROPN ####[facility] Zwtidzjvuy[address] [place] [address]Dr. Garima Pulliam XR CHEST 1 Von 01-12-2023 XR CHEST 1 V Normal [facility] XR CHEST 1 Von 01-01-2023 XR CHEST 1 V Normal [facility] CARDIAC NASH 3-6on 3 CK [Catalytic activity/Vol] 196 U/L Normal 39-308 [facility] Comment on above: Performed By: #### C MREP ####[facility] Owpxejwiyi[address] [place] [address]Dr. Garima Pulliam CK.MB [Mass/Vol] 7.41 ng/mL Critically high <=3.60 [facility] Comment on above: Performed By: #### C MREP ####[facility] Ebxuhvjxdc1[address] [place] [address]Dr. Garima Pulliam HSTROP 10.3 pg/mL Normal 4.0-76.1 [facility] Comment on above: Result Comment: CUT- OFF POINTS HAVE BEEN ESTABLISHED BASED ON THE FOURTH UNIVERSAL DEFINITIONS OF MYOCARDIALINFARCTION. THE UPPER REFERENCE LIMIT (URL) OF TROPONIN, DEFINED THE 99TH PERCENTILE OFcTnI DISTRIBUTION IN A REFERENCE POPULATION, HAS BEEN CONFIRMED THE DECISION THRESHOLDFOR [place] DIAGNOSIS. Performed By: #### C MREP ####[facility] Pdzwmvnlvy6730 [place] [address]Dr. Garima Pulliam XR CHEST 1 Von 12-26-2022 XR CHEST 1 V Normal [facility] BNPon 12-25-2022 Natriuretic peptide B (Bld) [Mass/Vol] 98.0 pg/mL Normal <=900.0 [facility] Comment on above: Performed By: #### B COMMUNICATION SPEC, BMP, CMADM ####[facility] Msdjetgszw4996 [place] [phone]. Garima Pulliam CARDIAC NASH ADMITon 023 CK [Catalytic activity/Vol] 208 U/L Normal 39-308 [facility] Comment on above: Performed By: #### B COMMUNICATION SPEC, BMP, CMADM ####[facility] Bfehuaeypr15[address] [place] [address]Dr. Garima Pulliam CK.MB [Mass/Vol] 7.63 ng/mL Critically high <=3.60 [facility] Comment on above: Performed By: #### B COMMUNICATION SPEC, BMP, CMADM ####[facility] Oenzfqjuer79[address] [place] [address]Dr. Garima Pulliam HSTROP 8.8 pg/mL Normal 4.0-76.1 [facility] Comment on above: Result Comment: CUT- OFF POINTS HAVE BEEN ESTABLISHED BASED ON THE FOURTH UNIVERSAL DEFINITIONS OF MYOCARDIALINFARCTION. THE UPPER REFERENCE LIMIT (URL) OF TROPONIN, DEFINED THE 99TH PERCENTILE OFcTnI DISTRIBUTION IN A REFERENCE POPULATION, HAS BEEN CONFIRMED THE DECISION THRESHOLDFOR [place] DIAGNOSIS. Performed By: #### B COMMUNICATION SPEC, BMP, CMADM ####[facility] Tbbenqochd39[address] [place] [address]Dr. Garima uPlliam DORIS 83 ng/mL Normal 16-96 [facility] Comment on above: Performed By: #### B COMMUNICATION SPEC, BMP, CMADM ####[facility] Omsvknhsyi4232 [place] [phone]. Garima Pulliam CBC AUTO DIFFon 12-25-2022 BASO # 0.0 103/ul Normal 0.0-0.1 [facility] Comment on above: Performed By: #### C BC ####[facility] Ehlsrcxjix4961 [place] [address]Dr. Garima Pulliam Basophils/100 WBC (Bld) 0.0 % Critically low 0.2-2.0 [facility] Comment on above: Performed By: #### C BC ####[facility] Wmsckinqhd[address] [place], [place] [address]Dr. Garima Pulliam EO # 0.0 103/ul Normal 0.0-0.7 [facility] Comment on above: Performed By: #### C BC ####[facility] Qpabpraihf[address] [place], [place] [address]Dr. Garima Pulliam Eosinophils/100 WBC (Bld) 0.7 % Critically low 0.9-7.0 [facility] Comment on above: Performed By: #### C BC ####[facility] Vaopduvtnv[address] [place], [place] [address]Dr. Garima Pulliam Erythrocyte distribution width (RBC) [Ratio] 13.4 % Normal 11.0-15.0 [facility] Comment on above: Performed By: #### C BC ####[facility] Ycrszgjixq639[address] [place], [place] [address]Dr. Garima Pulliam Hematocrit (Bld) [Volume fraction] 42.9 % Normal 42.0-54.0 [facility] Comment on above: Performed By: #### C BC ####[facility] Ettiaeomqg8[address] [place], [place] [address]Dr. Chapisrenu Pulliam Hemoglobin (Bld) [Mass/Vol] 14.4 g/dL Normal 14.0-18.0 [facility] Comment on above: Performed By: #### C BC ####[facility] Mxvgwdjibf[address] [place], [place] [address]Dr. Garima Pulliam IG # 0.00 10e3/ul Normal 0.00-0.03 [facility] Comment on above: Performed By: #### C BC ####[facility] Sdxbqssxye[address] [place], [place] [address]Dr. Garima Pulliam IG % 0.0 % Normal 0.0-0.5 [facility] Comment on above: Performed By: #### C BC ####[facility] Nhrxfpyfzv[address] [place], [place] [address]Dr. Garima Pulliam LYMPH # 2.4 103/ul Normal 1.2-3.8 [facility] Comment on above: Performed By: #### C BC ####[facility] Armxwvcanv6[address] [place] [address]Dr. Garima Pulliam Lymphocytes/100 WBC (Bld) 29.2 % Normal 20.5-60.0 [facility] Comment on above: Performed By: #### C BC ####[facility] Emergxjtks0453 [place] [address]DrAdalberto Pulliam MANUAL DIFF REQ NO Normal [facility] Comment on above: Performed By: #### C BC ####[facility] Efflntttbh6158 [place] [address]Dr. Garima Pulliam MCH (RBC) [Entitic mass] 30.7 pg Normal 25.9-34.0 [facility] Comment on above: Performed By: #### C BC ####[facility] Kxabmebzlv64[address] [place], [place] [address]Dr. Garima Pulliam MCHC (RBC) [Mass/Vol] 33.6 g/dL Normal 29.9-35.2 [facility] Comment on above: Performed By: #### C BC ####[facility] [address]yvginpmka[address] [place], [place] [address]DrAdalberto Pulliam MCV (RBC) [Entitic vol] 91.5 fL Normal 80.0-94.0 [facility] Comment on above: Performed By: #### C BC ####[facility] Luskycqbvs7151 [place] [address]Dr. Garima Pulliam MONO # 0.0 103/ul Critically low 0.3-0.8 [facility] Comment on above: Performed By: #### C BC ####[facility] Zf[address]fzghwep[address] [place], [place] [address]DrAdalberto Pulliam Monocytes/100 WBC (Bld) 8.0 % Normal 1.7-12.0 [facility] Comment on above: Performed By: #### C BC ####[facility] [address]vaircshcm[address] [place], [place] [address]DrAdalberto Pulliam NEUT # 5.1 103/ul Normal 1.4-6.5 [facility] Comment on above: Performed By: #### C BC ####[facility] Wvutzxyswg8491 [place] [phone]. Garima Pulliam Neutrophils/100 WBC (Bld) 62.8 % Normal 43.0-75.0 [facility] Comment on above: Performed By: #### C BC ####[facility] Xigvpfhwjb0021 [place] [phone]. Garima Pulliam Platelet mean volume (Bld) [Entitic vol] 8.6 fL Critically low 9.5-13.5 [facility] Comment on above: Performed By: #### C BC ####[facility] Xfsbbemzcs2514 [place] [phone]. Garima Pulliam PLT 200 103/ul Normal 150-450 [facility] Comment on above: Performed By: #### C BC ####[facility] Ntjkofwiyr0291 [place] [phone]. Garima Pulliam RBC 4.69 106/ul Critically low 4.70-6.10 [facility] Comment on above: Performed By: #### C BC ####[facility] Yaypacxlth2669 [place] [phone]. Garima Pulliam WBC 8.2 103/ul Normal 4.0-11.0 [facility] Comment on above: Performed By: #### C BC ####[facility] Anpxolhgas3250 [place] [phone]. Garima Pulliam [facility]on SARS-CoV-2 (COVID-19) RNA MARIE+probe Ql (Unsp spec) Not detected Normal NOT DETECTED [facility] Comment on above: Result Comment: When [...] for this test is supported by the [place] of Health and Human Service's declaration that [...] be used). Performed By: #### C VDTBH ####[facility] Eefvtlpomt[address] [place], [place] [address]Dr. Garima Pulliam INFLUENZA A AND B AGon 12-25 INFLUANE SEE BELOW Normal [facility] Comment on above: Result Comment: Nega tive for Flu A protein angiten. Infection due to Flu A cannot be ruled out. Flu A angiten in the sample may be below the detection limit of the test. Performed By: #### I NFLUAB ####[facility] [address] [place] [address]. Garima Pulliam INFLUBNEGH SEE BELOW Normal [facility] Comment on above: Result Comment: Nega tive for Flu B protein antigen. Infection due to Flu B cannot be ruled out. Flu B antigen in the sample may be below the detection limit of the test. Performed By: #### I NFLUAB ####[facility] [address]wglokufhv[address] [place], [place] [address]Dr. renu Pulliam INFLUENZA A AG Negative Normal NEGATIVE SEE COMMENT [facility] Comment on above: Performed By: #### I NFLUAB ####[facility] Lkkslmncbq[address] [place], [place] [address]Dr. Garima Pulliam INFLUENZA B AG Negative Normal NEGATIVE SEE COMMENT [facility] Comment on above: Performed By: #### I NFLUAB ####[facility] [address] [place] [address]. Garima Pulliam PROF CHEM 8 (BAS METB)on Anion gap [Moles/Vol] 11.1 mmol/L Normal Th [facility] Comment on above: Performed By: #### B COMMUNICATION SPEC, BMP, CMADM ####[facility] Vcrddylxeq8749 [place] [phone]. Garima Pulliam Calcium [Mass/Vol] 8.5 mg/dL Normal 8.5-10.1 [facility] Comment on above: Performed By: #### B COMMUNICATION SPEC, BMP, CMADM ####[facility] Xwhmhvjnbo7487 [place] [phone]. Garima Pulliam Chloride [Moles/Vol] 106 mmol/L Normal 98-107 [facility] Comment on above: Performed By: #### B COMMUNICATION SPEC, BMP, CMADM ####[facility] Mouyuuohgv5[address] [place] [address]Dr. Garima Pulliam CO2 [Moles/Vol] 27.4 mmol/L Normal 21.0-32.0 [facility] Comment on above: Performed By: #### B COMMUNICATION SPEC, BMP, CMADM ####[facility] Rnrdhuvqcx0295 [place] [address]Dr. Garima Pulliam Creatinine [Mass/Vol] 0.65 mg/dL Critically low 0.70-1.30 [facility] Comment on above: Performed By: #### B COMMUNICATION SPEC, BMP, CMADM ####[facility] [address]wypjutlan[address] [place] [address]Dr. Garima Pulliam EGFR-AF TURKS AND CAICOS ISLANDER >60 Normal >=60 [facility] Comment on above: Performed By: #### B COMMUNICATION SPEC, BMP, CMADM ####[facility] Fpwlgljxcf4537 [place] [address]Dr. Garima Pulliam EGFR-NON AF TURKS AND CAICOS ISLANDER >60 Normal >=60 [facility] Comment on above: Performed By: #### B COMMUNICATION SPEC, BMP, CMADM ####[facility] Vwujbvdsyb4466 [place] [address]Dr. Garima Pulliam Glucose [Mass/Vol] 140 mg/dL Critically high 74-106 [facility] Comment on above: Performed By: #### B COMMUNICATION SPEC, BMP, CMADM ####[facility] Xqpckwmgot[address] [place] [address]Dr. Garima Pulliam Potassium [Moles/Vol] 3.5 mmol/L Normal 3.5-5.1 [facility] Comment on above: Performed By: #### B COMMUNICATION SPECMARVIN, NANCY ####[facility] Iipzncizfw[address] [place] [address]Dr. Chapisrenu Pulliam Sodium [Moles/Vol] 141 mmol/L Normal 136-145 [facility] Comment on above: Performed By: #### B COMMUNICATION SPECMARVIN, CMAANA ROSA ####[facility] Egbkegshws[address] [place] [address]Dr. Garima Pulliam Urea nitrogen [Mass/Vol] 8.0 mg/dL Normal 7.0-18.0 [facility] Comment on above: Performed By: #### B MARVIN FRENCH CMADM ####[facility] Ldxxmhtzss[address] [place] [address]Dr. Garima Pulliam Urea nitrogen/Creatinine [Mass ratio] 12.3 mg/mg Normal [facility] Comment on above: Performed By: #### B MARVIN FRENCH CMAANA ROSA ####[facility] Giretebmnh[address] [place] [address]Dr. Garima Heraclio CARDIAC NASH ADMITon 023 CK [Catalytic activity/Vol] 165 U/L Normal 39-308 [facility] Comment on above: Performed By: #### B NANCY HERNANDEZ ####[facility] Vkqynrequt[address] [place], [place] [address]Dr. Garima Pulliam CK.MB [Mass/Vol] 6.48 ng/mL Critically high <=3.60 [facility] Comment on above: Performed By: #### B MP, CMADM ####[facility] Jedecopbvx[address] [place], [place] [address]Dr. Garima Heraclio HSTROP 11.7 pg/mL Normal 4.0-76.1 [facility] Comment on above: Result Comment: CUT- OFF POINTS HAVE BEEN ESTABLISHED BASED ON THE FOURTH UNIVERSAL DEFINITIONS OF MYOCARDIALINFARCTION. THE UPPER REFERENCE LIMIT (URL) OF TROPONIN, DEFINED THE 99TH PERCENTILE OFcTnI DISTRIBUTION IN A REFERENCE POPULATION, HAS BEEN CONFIRMED THE DECISION THRESHOLDFOR [place] DIAGNOSIS. Performed By: #### B DAVID, CMADM ####[facility] Mlizmoxeix280[address] [place] [phone]. Garima Pulliam DORIS 83 ng/mL Normal 16-96 [facility] Comment on above: Performed By: #### B MP, CMADM ####[facility] Qcufmmcbmj1064 [place] [phone]. Garima Pulliam CBC AUTO DIFFon 12-10-2022 BASO # 0.0 103/ul Normal 0.0-0.1 [facility] Comment on above: Performed By: #### C BC ####[facility] Lzqmpjdbuh8651 [place] [phone]. Garima Pulliam Basophils/100 WBC (Bld) 0.3 % Normal 0.2-2.0 [facility] Comment on above: Performed By: #### C BC ####[facility] Tejvkhpqmn[address] [place] [address]Dr. Garima Pulliam EO # 0.1 103/ul Normal 0.0-0.7 [facility] Comment on above: Performed By: #### C BC ####[facility] Wwsahpwpwj0397 [place] [phone]. Garima Pulliam Eosinophils/100 WBC (Bld) 0.4 % Critically low 0.9-7.0 [facility] Comment on above: Performed By: #### C BC ####[facility] Zkrdehcevq3323 [place] [phone]. Garima Pulliam Erythrocyte distribution width (RBC) [Ratio] 13.2 % Normal 11.0-15.0 [facility] Comment on above: Performed By: #### C BC ####[facility] [address]zyyp[address] [place], [place] [id number]. Garima Pulliam Hematocrit (Bld) [Volume fraction] 42.4 % Normal 42.0-54.0 [facility] Comment on above: Performed By: #### C BC ####[facility] Hjxzthirki[address] [place], [place] [id number]. Garima Pulliam Hemoglobin (Bld) [Mass/Vol] 14.4 g/dL Normal 14.0-18.0 [facility] Comment on above: Performed By: #### C BC ####[facility] Vszybjkjgg8744 [place] [phone]. Garima Pulliam IG # 0.05 10e3/ul Critically high 0.00-0.03 [facility] Comment on above: Performed By: #### C BC ####[facility] Pakdgegvln1704 [place] [phone]. Garima Pulliam IG % 0.4 % Normal 0.0-0.5 [facility] Comment on above: Performed By: #### C BC ####[facility] Mywlkwunwc8303 [place] [address]Dr. Garima Pulliam LYMPH # 0.8 103/ul Critically low 1.2-3.8 [facility] Comment on above: Performed By: #### C BC ####[facility] Dnyfpqwxbq2057 [place] [address]Dr. Garima Pulliam Lymphocytes/100 WBC (Bld) 6.5 % Critically low 20.5-60.0 [facility] Comment on above: Performed By: #### C BC ####[facility] Dunuswqxyl[address] [place] [address]Dr. Garima Pulliam MANUAL DIFF REQ NO Normal [facility] Comment on above: Performed By: #### C BC ####[facility] Ylrwnhvjns6238 [place] [address]Dr. Garima Pulliam MCH (RBC) [Entitic mass] 30.5 pg Normal 25.9-34.0 [facility] Comment on above: Performed By: #### C BC ####[facility] Wqrxdjjcux[address] [place], [place] [address]Dr. Garima Pulliam MCHC (RBC) [Mass/Vol] 34.0 g/dL Normal 29.9-35.2 [facility] Comment on above: Performed By: #### C BC ####[facility] Wydlcibusl[address] [place], [place] [address]Dr. Garima Pulliam MCV (RBC) [Entitic vol] 89.8 fL Normal 80.0-94.0 [facility] Comment on above: Performed By: #### C BC ####[facility] Ixecfiswkq8617 [place] [phone]. Garima Pulliam MONO # 0.2 103/ul Critically low 0.3-0.8 [facility] Comment on above: Performed By: #### C BC ####[facility] Eopiuxikcc5239 [place] [phone]. Garima Pulliam Monocytes/100 WBC (Bld) 2.0 % Normal 1.7-12.0 [facility] Comment on above: Performed By: #### C BC ####[facility] Tfyccnslqg0509 [place] [phone]. Garima Pulliam NEUT # 10.5 103/ul Critically high 1.4-6.[address] [facility] Comment on above: Performed By: #### C BC ####[facility] Ukvjgbmdjg7260 [place] [phone]. Garima Pulliam Neutrophils/100 WBC (Bld) 90.4 % Critically high 43.0-75.0 [facility] Comment on above: Performed By: #### C BC ####[facility] Kkicwnakru5680 [place] [phone]. Garima Pulliam Platelet mean volume (Bld) [Entitic vol] 9.4 fL Critically low 9.5-13.5 [facility] Comment on above: Performed By: #### C BC ####[facility] Qxdnnzvyyq0232 [place] [phone]. Garima Pulliam PLT 198 103/ul Normal 150-450 [facility] Comment on above: Performed By: #### C BC ####[facility] Icmjoypbhw6850 [place] [phone]. Garima Pulliam RBC 4.72 106/ul Normal 4.70-6.10 [facility] Comment on above: Performed By: #### C BC ####[facility] Tsofjegjib2133 [place] [phone]. Garima Pulliam WBC 11.6 103/ul Critically high 4.0-11.[address] [facility] Comment on above: Performed By: #### C BC ####[facility] Xtftwgwbns7331 [place] [address]Dr. Garima Pulliam PROF CHEM 8 (BAS METB)on Anion gap [Moles/Vol] 11.3 mmol/L Normal [facility] Comment on above: Performed By: #### B DAVID, CMADM ####[facility] Qobhbxynod4[address] [place] [address]Dr. Garima Pulliam Calcium [Mass/Vol] 8.9 mg/dL Normal 8.5-10.1 [facility] Comment on above: Performed By: #### B DAVID, NANCY ####[facility] Jfreejgyqi9[address] [place] [address]Dr. Garima Pulliam Chloride [Moles/Vol] 103 mmol/L Normal 98-107 [facility] Comment on above: Performed By: #### B DAVID, CMADM ####[facility] Wcpat[address]djw[address] [place], [place] [address]Dr. Garima Pulliam CO2 [Moles/Vol] 28.2 mmol/L Normal 21.0-32.0 [facility] Comment on above: Performed By: #### Trae HERNANDEZ, NANCY ####[facility] Ohcbocitdr6[address] [place] [address]Dr. Garima Pulliam Creatinine [Mass/Vol] 0.60 mg/dL Critically low 0.70-1.30 [facility] Comment on above: Performed By: #### Trae HERNANDEZ, CMAANA ROSA ####[facility] Rltlnbtrgq4442 [place] [address]Dr. Garima Pulliam EGFR-AF TURKS AND CAICOS ISLANDER >60 Normal >=60 [facility] Comment on above: Performed By: #### B DAVID, CMAANA ROSA ####[facility] Efvruyyylk34[address] [place] [address]Dr. Garima Pulliam EGFR-NON AF TURKS AND CAICOS ISLANDER >60 Normal >=60 [facility] Comment on above: Performed By: #### B DAVID, CMADM ####[facility] Zmlwckftdn6809 [place] [address]Dr. Garima Pulliam Glucose [Mass/Vol] 166 mg/dL Critically high 74-106 [facility] Comment on above: Performed By: #### B DAVID, CMADM ####[facility] Vhoaroxvle8[address] [place] [address]Dr. Garima Pulliam Potassium [Moles/Vol] 3.5 mmol/L Normal 3.5-5.1 [facility] Comment on above: Performed By: #### B DAVID, CMADM ####[facility] Sckrdlnycf[address] [place], [place] [address]Dr. Garima Pulliam Sodium [Moles/Vol] 139 mmol/L Normal 136-145 [facility] Comment on above: Performed By: #### B DAVID, CMADM ####[facility] Obwvspypiy[address] [place], [place] [address]Dr. Chapisrenu Heraclio Urea nitrogen [Mass/Vol] 9.0 mg/dL Normal 7.0-18.0 [facility] Comment on above: Performed By: #### B DAVID, CMAANA ROSA ####[facility] Bphmhcejun[address] [place], [place] [address]Dr. Garima Pulliam Urea nitrogen/Creatinine [Mass ratio] 15.0 mg/mg Normal [facility] Comment on above: Performed By: #### B DAVID, CMAANA ROSA ####[facility] Pjxflsyvdp[address] [place], [place] [address]Dr. Garima Heraclio XR CHEST 1 Von 12-10-2022 XR CHEST 1 V Normal [facility] BNPon 11-27-2022 Natriuretic peptide B (Bld) [Mass/Vol] 95.0 pg/mL Normal <=900.0 [facility] Comment on above: Performed By: #### C MP, HSTROPN, BNP ####[facility] Hiivkalfos[address] [place], [place] [address]Dr. Garima Pulliam CBC AUTO DIFFon 11-27-2022 BASO # 0.0 103/ul Normal 0.0-0.1 [facility] Comment on above: Performed By: #### C BC ####[facility] Gqsexksyzu[address] [place], [place] [address]Dr. Garima Pulliam Basophils/100 WBC (Bld) 0.2 % Normal 0.2-2.0 [facility] Comment on above: Performed By: #### C BC ####[facility] Alzcqcuifr7150 [place] [phone]. Garima Pulliam EO # 0.2 103/ul Normal 0.0-0.7 [facility] Comment on above: Performed By: #### C BC ####[facility] Zjjslxgqna4013 [place] [phone]. Garima Pulliam Eosinophils/100 WBC (Bld) 2.0 % Normal 0.9-7.0 [facility] Comment on above: Performed By: #### C BC ####[facility] Aezznhalen[address] [place], [place] [address]Dr. Garima Pulliam Erythrocyte distribution width (RBC) [Ratio] 13.2 % Normal 11.0-15.0 [facility] Comment on above: Performed By: #### C BC ####[facility] Uznofajmgh[address] [place], [place] [address]Dr. Garima Pulliam Hematocrit (Bld) [Volume fraction] 42.4 % Normal 42.0-54.0 [facility] Comment on above: Performed By: #### C BC ####[facility] Btwwypntkz[address] [place], [place] [address]Dr. Garima Pulliam Hemoglobin (Bld) [Mass/Vol] 14.4 g/dL Normal 14.0-18.0 [facility] Comment on above: Performed By: #### C BC ####[facility] Sigyfxujfi[address] [place], [place] [address]Dr. Garima Pulliam IG # 0.04 10e3/ul Critically high 0.00-0.03 [facility] Comment on above: Performed By: #### C BC ####[facility] Ghtkxpddzb[address] [place], [place] [address]Dr. Garima Pulliam IG % 0.4 % Normal 0.0-0.5 [facility] Comment on above: Performed By: #### C BC ####[facility] Ovhgtobdpk[address] [place], [place] [address]Dr. Garima Pulliam LYMPH # 2.2 103/ul Normal 1.2-3.8 [facility] Comment on above: Performed By: #### C BC ####[facility] Xukiqhaudt7252 [place] [phone]. Chapisrenu Pulliam Lymphocytes/100 WBC (Bld) 21.5 % Normal 20.5-60.0 [facility] Comment on above: Performed By: #### C BC ####[facility] Rplbyphpcl0940 [place] [phone]. Garima Pulliam MANUAL DIFF REQ NO Normal [facility] Comment on above: Performed By: #### C BC ####[facility] Yyrtrfrylx0098 [place] [phone]. Garima Pulliam MCH (RBC) [Entitic mass] 30.4 pg Normal 25.9-34.0 [facility] Comment on above: Performed By: #### C BC ####[facility] Fnzevazqkv5893 [place] [phone]. Garima Pulliam MCHC (RBC) [Mass/Vol] 34.0 g/dL Normal 29.9-35.2 [facility] Comment on above: Performed By: #### C BC ####[facility] Ymgsgwodgs2530 [place] [phone]. Garima Pulliam MCV (RBC) [Entitic vol] 89.6 fL Normal 80.0-94.0 [facility] Comment on above: Performed By: #### C BC ####[facility] Lgrrqjzrrv4295 [place] [phone]. Garima Pulliam MONO # 0.8 103/ul Normal 0.3-0.8 [facility] Comment on above: Performed By: #### C BC ####[facility] Yxkbxhrfbu2229 [place] [phone]. Garima Pulliam Monocytes/100 WBC (Bld) 7.7 % Normal 1.7-12.0 [facility] Comment on above: Performed By: #### C BC ####[facility] Nwpmtspstd2630 [place] [phone]. Garima Pulliam NEUT # 7.0 103/ul Critically high 1.4-6.5 [facility] Comment on above: Performed By: #### C BC ####[facility] Lgowiycatv6598 [place] [address]Dr. Garima Pulliam Neutrophils/100 WBC (Bld) 68.2 % Normal 43.0-75.0 [facility] Comment on above: Performed By: #### C BC ####[facility] Uaurtjquix9417 [place] [phone]. Garima Pulliam Platelet mean volume (Bld) [Entitic vol] 8.9 fL Critically low 9.5-13.5 [facility] Comment on above: Performed By: #### C BC ####[facility] Oswuhtzomg9[address] [place] [address]Dr. Garima Pulliam PLT 222 103/ul Normal 150-450 [facility] Comment on above: Performed By: #### C BC ####[facility] Pfgewdigwn2547 [place] [address]Dr. Garima Pulliam RBC 4.73 106/ul Normal 4.70-6.10 [facility] Comment on above: Performed By: #### C BC ####[facility] R[address]lwgksfh[address] [place], [place] [address]Dr. Garima Pulliam WBC 10.3 103/ul Normal 4.0-11.0 [facility] Comment on above: Performed By: #### C BC ####[facility] Mhaetazwso6746 [place] [address]DrAdalberto Pulliam PROF 14(COMP METB)on 023 Albumin [Mass/Vol] 3.7 g/dL Normal 3.4-5.0 [facility] Comment on above: Performed By: #### C MP, HSTROPN, BNP ####[facility] Taxffsinmo5581 [place] [phone]. Garima Pulliam Albumin/Globulin [Mass ratio] 1.5 {ratio} Normal [facility] Comment on above: Performed By: #### C MP, HSTROPN, BNP ####[facility] Wmkwzwrfqu3848 [place] [phone] Pulliam ALP [Catalytic activity/Vol] 79 U/L Normal 46-116 [facility] Comment on above: Performed By: #### C DAVID HSTROPN, BNP ####[facility] Nhvwgqyorg7793 [place] [address]Dr. Garima Pulliam ALT [Catalytic activity/Vol] 32 U/L Normal 16-63 [facility] Comment on above: Performed By: #### C DAVID, HSTROPN, BNP ####[facility] Pfhzwfrpha0894 [place] [address]Dr. Garima Pulliam Anion gap [Moles/Vol] 9.5 mmol/L Normal [facility] Comment on above: Performed By: #### C DAVID HSTROPN, BNP ####[facility] Imfxtrsxxz624[address] [place], [place] [address]Dr. Garima Pulliam AST [Catalytic activity/Vol] 25 U/L Normal 15-37 [facility] Comment on above: Performed By: #### C DAVID, HSTROPN, BNP ####[facility] Zbdtbxmnxw[address] [place], [place] [address]Dr. Garima Pulliam Bilirubin [Mass/Vol] 0.4 mg/dL Normal 0.2-1.0 [facility] Comment on above: Performed By: #### C DAVID HSTROPN, BNP ####[facility] Rpkgktplhx[address] [place], [place] [address]Dr. Garima Pulliam Calcium [Mass/Vol] 8.9 mg/dL Normal 8.5-10.1 [facility] Comment on above: Performed By: #### C DAVID, HSTROPN, BNP ####[facility] Pkoaonixby4[address] [place] [address]Dr. Garima Pulliam Chloride [Moles/Vol] 103 mmol/L Normal 98-107 [facility] Comment on above: Performed By: #### C DAVID, HSTROPN, BNP ####[facility] Zoiihcujlu5330 [place] [address]Dr. Garima Pulliam CO2 [Moles/Vol] 28.6 mmol/L Normal 21.0-32.[address] [facility] Comment on above: Performed By: #### C MP, HSTROPN, BNP ####[facility] Qwkgiuusba7752 [place] [address]Dr. Garima Pulliam Creatinine [Mass/Vol] 0.72 mg/dL Normal 0.70-1.30 [facility] Comment on above: Performed By: #### C MP, HSTROPN, BNP ####[facility] Tbgrkmlhtw0394 [place] [address]Dr. Garima Pulliam EGFR-AF TURKS AND CAICOS ISLANDER >60 Normal >=60 [facility] Comment on above: Performed By: #### C MP, HSTROPN, BNP ####[facility] Hcbxilruma[address] [place], [place] [address]Dr. Garima Pulliam EGFR-NON AF TURKS AND CAICOS ISLANDER >60 Normal >=60 [facility] Comment on above: Performed By: #### C MP, HSTROPN, BNP ####[facility] Mrbsyfolip[address] [place], [place] [address]Dr. Garima Pulliam Globulin (S) [Mass/Vol] 2.5 g/dL Normal [facility] Comment on above: Performed By: #### C MP, HSTROPN, BNP ####[facility] Nevezdnhdm24[address] [place], [place] [address]Dr. Garima Pulliam Glucose [Mass/Vol] 114 mg/dL Critically high 74-[address] [facility] Comment on above: Performed By: #### C MP, HSTROPN, BNP ####[facility] Qkqicbwakg25[address] [place], [place] [address]Dr. Garima Pulliam Potassium [Moles/Vol] 4.1 mmol/L Normal 3.5-5.1 [facility] Comment on above: Performed By: #### C MP, HSTROPN, BNP ####[facility] Sssemwvimp[address] [place], [place] [address]Dr. Garima Pulliam Protein [Mass/Vol] 6.2 g/dL Critically low 6.4-8.2 [facility] Comment on above: Performed By: #### C MP, HSTROPN, BNP ####[facility] Cjsblntkxe1319 [place] [address]Dr. Garima Pulliam Sodium [Moles/Vol] 137 mmol/L Normal 136-145 [facility] Comment on above: Performed By: #### C MP, HSTROPN, BNP ####[facility] Ivcnymvbwc5104 [place] [address]Dr. Garima Pulliam Urea nitrogen [Mass/Vol] 13.0 mg/dL Normal 7.0-18.0 [facility] Comment on above: Performed By: #### C MP, HSTROPN, BNP ####[facility] Wewolgpiab8096 [place] [address]Dr. Chapisrenu Pulliam Urea nitrogen/Creatinine [Mass ratio] 18.1 mg/mg Normal [facility] Comment on above: Performed By: #### C MP, HSTROPN, BNP ####[facility] Kptmivvluw[address] [place], [place] [address]Dr. Garima Pulliam TROPONIN, HIGH SENSITIVITYon 11-27-2022 HSTROP 11.8 pg/mL Normal 4.0-76.1 [facility] Comment on above: Result Comment: CUT- OFF POINTS HAVE BEEN ESTABLISHED BASED ON THE FOURTH UNIVERSAL DEFINITIONS OF MYOCARDIALINFARCTION. THE UPPER REFERENCE LIMIT (URL) OF TROPONIN, DEFINED THE 99TH PERCENTILE OFcTnI DISTRIBUTION IN A REFERENCE POPULATION, HAS BEEN CONFIRMED THE DECISION THRESHOLDFOR [place] DIAGNOSIS. Performed By: #### C MP, HSTROPN, BNP ####[facility] Ckvkegqkle7355 [place] [address]Dr. Garima Pulliam XR CHEST 1 Von 11-27-2022 XR CHEST 1 V Normal [facility] BNPon 11-20-2022 Natriuretic peptide B (Bld) [Mass/Vol] 73.0 pg/mL Normal <=900.0 [facility] Comment on above: Performed By: #### B MP, HSTROPN, BNP ####[facility] Mzgnkhvjza[address] [place], [place] [address]Dr. Chapisrenu Pulliam CBC AUTO DIFFon 11-20-2022 BASO # 0.0 103/ul Normal 0.0-0.1 [facility] Comment on above: Performed By: #### C BC ####[facility] Yjkvokrisu5316 [place] [phone]. Garima Pulliam Basophils/100 WBC (Bld) 0.3 % Normal 0.2-2.0 [facility] Comment on above: Performed By: #### C BC ####[facility] [address]yxilu[address] [place], [place] [id number]. Garima Pulliam EO # 0.2 103/ul Normal 0.0-0.7 [facility] Comment on above: Performed By: #### C BC ####[facility] [address]zpbamu[address] [place], [place] [id number]. Garima Pulliam Eosinophils/100 WBC (Bld) 2.1 % Normal 0.9-7.0 [facility] Comment on above: Performed By: #### C BC ####[facility] Pavfdqeghv[address] [place], [place] [address]Dr. Garima Pulliam Erythrocyte distribution width (RBC) [Ratio] 13.2 % Normal 11.0-15.0 [facility] Comment on above: Performed By: #### C BC ####[facility] Vbmxwhntos[address] [place], [place] [id number]. Garima Pulliam Hematocrit (Bld) [Volume fraction] 43.4 % Normal 42.0-54.0 [facility] Comment on above: Performed By: #### C BC ####[facility] Gaf[address] [place], [place] [id number]. Garima Pulliam Hemoglobin (Bld) [Mass/Vol] 14.6 g/dL Normal 14.0-18.0 [facility] Comment on above: Performed By: #### C BC ####[facility] Lxvuzvfpeu[address] [place], [place] [address]Dr. Garima Pulliam IG # 0.02 10e3/ul Normal 0.00-0.03 [facility] Comment on above: Performed By: #### C BC ####[facility] Crwql[address]pfz[address] [place], [place] [address]Dr. Garima Pulliam IG % 0.2 % Normal 0.0-0.5 [facility] Comment on above: Performed By: #### C BC ####[facility] Yjqerxtfrl4058 [place] [phone]. Chapisrenu Heraclio LYMPH # 2.1 103/ul Normal 1.2-3.8 [facility] Comment on above: Performed By: #### C BC ####[facility] Iwkgnlggul5329 [place] [phone]. Garima Pulliam Lymphocytes/100 WBC (Bld) 19.2 % Critically low 20.5-60.0 [facility] Comment on above: Performed By: #### C BC ####[facility] Msbdwmadcc3856 [place] [phone]. Garima Pulliam MANUAL DIFF REQ NO Normal [facility] Comment on above: Performed By: #### C BC ####[facility] Braffwbdum3435 [place] [phone]. Garima Pulliam MCH (RBC) [Entitic mass] 30.4 pg Normal 25.9-34.0 [facility] Comment on above: Performed By: #### C BC ####[facility] Klonwwtiem2168 [place] [phone]. Garima Pulliam MCHC (RBC) [Mass/Vol] 33.6 g/dL Normal 29.9-35.2 [facility] Comment on above: Performed By: #### C BC ####[facility] Bxbiyonqpv3674 [place] [phone]. Garima Pulliam MCV (RBC) [Entitic vol] 90.4 fL Normal 80.0-94.0 [facility] Comment on above: Performed By: #### C BC ####[facility] Mxxkvdjjvi8329 [place] [address]Dr. Garima Pulliam MONO # 0.6 103/ul Normal 0.3-0.8 [facility] Comment on above: Performed By: #### C BC ####[facility] Rnkrjgogoy4482 [place] [phone]. Garima Pulliam Monocytes/100 WBC (Bld) 5.8 % Normal 1.7-12.0 [facility] Comment on above: Performed By: #### C BC ####[facility] Wlpgtawist6422 [place] [phone]. Garima Pulliam NEUT # 7.8 103/ul Critically high 1.4-6.5 [facility] Comment on above: Performed By: #### C BC ####[facility] Fibqitqldn8439 [place] [phone]. Garima Pulliam Neutrophils/100 WBC (Bld) 72.4 % Normal 43.0-75.0 [facility] Comment on above: Performed By: #### C BC ####[facility] Fncwmfuspg3385 [place] [phone]. Garima Pulliam Platelet mean volume (Bld) [Entitic vol] 8.7 fL Critically low 9.5-13.5 [facility] Comment on above: Performed By: #### C BC ####[facility] Gyahngcpds[address] [place] [address]Dr. Garima Pulliam PLT 184 103/ul Normal 150-450 [facility] Comment on above: Performed By: #### C BC ####[facility] Rcyeajqqqc8580 [place] [phone]. Garima Pulliam RBC 4.80 106/ul Normal 4.70-6.10 [facility] Comment on above: Performed By: #### C BC ####[facility] Xtbjfpegeg7803 [place] [phone]. Garima Pulliam WBC 10.8 103/ul Normal 4.0-11.0 [facility] Comment on above: Performed By: #### C BC ####[facility] [facility] [address] [place], [place] [id number]. Garima Pulliam Covid-19 PCR (CVDTB)on 10-24 SARS-CoV-2 (COVID-19) RNA MARIE+probe Ql (Unsp spec) Not detected Normal NOT DETECTED [facility] Comment on above: Result Comment: When [...] for this test is supported by the Reimbursement Manager of Health and Human Service's declaration that [...] be used). Performed By: #### C VDTB ####[facility] Xxshgrrmhj[address] [place], [place] [address]Dr. Garima Pulliam INFLUENZA A AND B AGon 11-20 [facility] SEE BELOW Normal [facility] Comment on above: Result Comment: Nega tive for Flu A protein angiten. Infection due to Flu A cannot be ruled out. Flu A angiten in the sample may be below the detection limit of the test. Performed By: #### I NFLUAB ####[facility] Bbmwn[address]lc[address] [place], [place] [address]Dr. Garima Pulliam INFLUBNEG SEE BELOW Normal [facility] Comment on above: Result Comment: Nega tive for Flu B protein antigen. Infection due to Flu B cannot be ruled out. Flu B antigen in the sample may be below the detection limit of the test. Performed By: #### I NFLUAB ####[facility] Zsh[address] [place], [place] [address]Dr. Garima Pulliam INFLUENZA A AG Negative Normal NEGATIVE SEE COMMENT [facility] Comment on above: Performed By: #### I NFLUAB ####[facility] Nybuxycwgb[address] [place], [place] [address]Dr. Garima Pulliam INFLUENZA B AG Negative Normal NEGATIVE SEE COMMENT [facility] Comment on above: Performed By: #### I NFLUAB ####[facility] Xpjaprytuq[address] [place], [place] [address]Dr. Garima Pulliam PROF CHEM 8 (BAS METB)on Anion gap [Moles/Vol] 8.2 mmol/L Normal [facility] Comment on above: Performed By: #### B MP, HSTROPN, BNP ####[facility] [address] [place] [address]Dr. Garima Pulliam Calcium [Mass/Vol] 8.7 mg/dL Normal 8.5-10.1 [facility] Comment on above: Performed By: #### B MP, HSTROPN, BNP ####[facility] [address] [place] [address]Dr. Garima Pulliam Chloride [Moles/Vol] 103 mmol/L Normal 98-107 [facility] Comment on above: Performed By: #### B MP, HSTROPN, BNP ####[facility] [address]dsd[address] [place] [address]Dr. Garima Pulliam CO2 [Moles/Vol] 29.4 mmol/L Normal 21.0-32.0 [facility] Comment on above: Performed By: #### B MP, HSTROPN, BNP ####[facility] X[address]znrskfi[address] [place], [place] [address]Dr. Garima Pulliam Creatinine [Mass/Vol] 0.69 mg/dL Critically low 0.70-1.30 [facility] Comment on above: Performed By: #### B MP, HSTROPN, BNP ####[facility] [address]wb[address] [place] [address]Dr. Garima Pulliam EGFR-AF TURKS AND CAICOS ISLANDER >60 Normal >=[address] [facility] Comment on above: Performed By: #### B MP, HSTROPN, BNP ####[facility] Bqcfz[address] [place], [place] [address]Dr. Garima Pulliam EGFR-NON AF TURKS AND CAICOS ISLANDER >60 Normal >=60 [facility] Comment on above: Performed By: #### B MP, HSTROPN, BNP ####[facility] T[address]mua[address] [place] [address]Dr. Chapisrenu Pulliam Glucose [Mass/Vol] 209 mg/dL Critically high 74-106 [facility] Comment on above: Performed By: #### B MP, HSTROPN, BNP ####[facility] Pol[address]znhi[address] [place] [address]Dr. Garima Pulliam Potassium [Moles/Vol] 3.6 mmol/L Normal 3.5-5.1 [facility] Comment on above: Performed By: #### B MP, HSTROPN, BNP ####[facility] T[address]fbfyuvnw[address] [place] [address]Dr. Garima Pulliam Sodium [Moles/Vol] 137 mmol/L Normal 136-145 [facility] Comment on above: Performed By: #### B MP, HSTROPN, BNP ####[facility] Gjuvtibzru[address] [place] [address]Dr. Garima Pulliam Urea nitrogen [Mass/Vol] 11.0 mg/dL Normal 7.0-18.0 [facility] Comment on above: Performed By: #### B MP, HSTROPN, BNP ####[facility] Cqpsybzywf[address] [place] [address]Dr. Garima Pulliam Urea nitrogen/Creatinine [Mass ratio] 15.9 mg/mg Normal [facility] Comment on above: Performed By: #### B MP, HSTROPN, BNP ####[facility] Tacatuojeg[address] [place] [address]Dr. Garima Pulliam TROPONIN, HIGH SENSITIVITYon 11-20-2022 HSTROP 8.7 pg/mL Normal 4.0-76.1 [facility] Comment on above: Result Comment: CUT- OFF POINTS HAVE BEEN ESTABLISHED BASED ON THE FOURTH UNIVERSAL DEFINITIONS OF MYOCARDIALINFARCTION. THE UPPER REFERENCE LIMIT (URL) OF TROPONIN, DEFINED THE 99TH PERCENTILE OFcTnI DISTRIBUTION IN A REFERENCE POPULATION, HAS BEEN CONFIRMED THE DECISION THRESHOLDFOR [place] DIAGNOSIS. Performed By: #### B MP, HSTROPN, BNP ####[facility] [address]vot[address] [place] [address]Dr. Garima Pulliam XR CHEST 1 Von 11-20-2022 XR CHEST 1 V Normal [facility] XR CHEST 1 Von 10-02-2022 XR CHEST 1 V Normal [facility] BNPon 09-29-2022 Natriuretic peptide B (Bld) [Mass/Vol] 107.0 pg/mL Normal <=900.0 [facility] Comment on above: Performed By: #### C MP, BNP, CMADM ####[facility] V[address]kl[address] [place] [address]Dr. Garima Pulliam CARDIAC NASH ADMITon 022 CK [Catalytic activity/Vol] 190 U/L Normal 39-308 [facility] Comment on above: Performed By: #### C MP, BNP, CMADM ####[facility] Rewywabocz[address] [place] [address]Dr. Garima Pulliam CK.MB [Mass/Vol] 11.11 ng/mL Critically high <=3.60 [facility] Comment on above: Performed By: #### C MP, BNP, CMADM ####[facility] Rycuvifodi[address] [place] [address]Dr. Garima Pulliam HSTROP 11.8 pg/mL Normal 4.0-76.1 [facility] Comment on above: Result Comment: CUT- OFF POINTS HAVE BEEN ESTABLISHED BASED ON THE FOURTH UNIVERSAL DEFINITIONS OF MYOCARDIALINFARCTION. THE UPPER REFERENCE LIMIT (URL) OF TROPONIN, DEFINED THE 99TH PERCENTILE OFcTnI DISTRIBUTION IN A REFERENCE POPULATION, HAS BEEN CONFIRMED THE DECISION THRESHOLDFOR [place] DIAGNOSIS. Performed By: #### C MP, BNP, CMADM ####[facility] Fgntqpsjmu[address] [place] [address]Dr. Garima Pulliam DORIS 133 ng/mL Critically high 16-96 [facility] Comment on above: Performed By: #### C MP, BNP, CMADM ####[facility] Uiommohwib[address] [place] [address]Dr. Garima Pulliam CBC AUTO DIFFon 09-29-2022 BASO # 0.0 103/ul Normal 0.0-0.1 [facility] Comment on above: Performed By: #### C BC ####[facility] Tyjywccdtt[address] [place] [address]Dr. Garima Pulliam Basophils/100 WBC (Bld) 0.2 % Normal 0.2-2.0 [facility] Comment on above: Performed By: #### C BC ####[facility] Leupjzbbqe[address] [place] [address]Dr. Garima Pulliam EO # 0.1 103/ul Normal 0.0-0.7 [facility] Comment on above: Performed By: #### C BC ####[facility] Nkxekhzlim[address] [place] [address]Dr. Garima Pulliam Eosinophils/100 WBC (Bld) 1.4 % Normal 0.9-7.0 [facility] Comment on above: Performed By: #### C BC ####[facility] Qjwzloxwzx23[address] [place] [address]Dr. Garima Pulliam Erythrocyte distribution width (RBC) [Ratio] 13.7 % Normal 11.0-15.0 [facility] Comment on above: Performed By: #### C BC ####[facility] Ch[address]fftj[address] [place], [place] [address]Dr. Garima Pulliam Hematocrit (Bld) [Volume fraction] 45.4 % Normal 42.0-54.0 [facility] Comment on above: Performed By: #### C BC ####[facility] Xaqjliwwao[address] [place], [place] [address]Dr. Garima Pulliam Hemoglobin (Bld) [Mass/Vol] 14.8 g/dL Normal 14.0-18.0 [facility] Comment on above: Performed By: #### C BC ####[facility] Ceyxmjwoxq[address] [place], [place] [address]Dr. Garima Pulliam IG # 0.04 10e3/ul Critically high 0.00-0.03 [facility] Comment on above: Performed By: #### C BC ####[facility] Ildrswhbzo[address] [place], [place] [address]Dr. Garima Heraclio IG % 0.5 % Normal 0.0-0.5 [facility] Comment on above: Performed By: #### C BC ####[facility] Pixykjmutt[address] [place], [place] [address]DrAdalberto Pulliam LYMPH # 1.1 103/ul Critically low 1.2-3.8 [facility] Comment on above: Performed By: #### C BC ####[facility] Ubwidaujms[address] [place] [address]DrAdalberto Pulliam Lymphocytes/100 WBC (Bld) 12.7 % Critically low 20.5-60.0 [facility] Comment on above: Performed By: #### C BC ####[facility] [address]dmofwh[address] [place] [address]DrAdalberto Pulliam MANUAL DIFF REQ NO Normal [facility] Comment on above: Performed By: #### C BC ####[facility] Dmmcljmpwh7[address] [place] [id number] Pulliam MCH (RBC) [Entitic mass] 30.0 pg Normal 25.9-34.0 [facility] Comment on above: Performed By: #### C BC ####[facility] Vsl[address]yq[address] [place], [place] [address]Dr. Garima Pulliam MCHC (RBC) [Mass/Vol] 32.6 g/dL Normal 29.9-35.2 [facility] Comment on above: Performed By: #### C BC ####[facility] Z[address]ibsx[address]cs[address] [place], [place] [address]DrAdalberto Pulliam MCV (RBC) [Entitic vol] 91.9 fL Normal 80.0-94.0 [facility] Comment on above: Performed By: #### C BC ####[facility] Joz[address]lqruh[address] [place] [address]DrAdalberto Pulliam MONO # 0.4 103/ul Normal 0.3-0.8 [facility] Comment on above: Performed By: #### C BC ####[facility] Our[address] [place], [place] [id number] Pulliam Monocytes/100 WBC (Bld) 4.8 % Normal 1.7-12.0 [facility] Comment on above: Performed By: #### C BC ####[facility] Tg[address] [place], [place] [id number] Pulliam NEUT # 7.1 103/ul Critically high 1.4-6.5 [facility] Comment on above: Performed By: #### C BC ####[facility] [address]cq[address] [place] [phone]. Garima Pulliam Neutrophils/100 WBC (Bld) 80.4 % Critically high 43.0-75.0 [facility] Comment on above: Performed By: #### C BC ####[facility] Nsmzjhxhjo6[address] [place] [phone]. Garima Pulliam Platelet mean volume (Bld) [Entitic vol] 9.1 fL Critically low 9.5-13.5 [facility] Comment on above: Performed By: #### C BC ####[facility] V[address]qhlnha[address]013 [place] [phone]. Garima Pulliam PLT 200 103/ul Normal 150-450 [facility] Comment on above: Performed By: #### C BC ####[facility] Efx[address]yr[address]rl[address] [place] [phone]. Garima Pulliam RBC 4.94 106/ul Normal 4.70-6.10 [facility] Comment on above: Performed By: #### C BC ####[facility] Wrjcmwsnbw6494 [place] [phone]. Garima Pulliam WBC 8.9 103/ul Normal 4.0-11.0 [facility] Comment on above: Performed By: #### C BC ####[facility] Ga[address]uyg[address] [place] [phone]. Garima Pulliam [facility]on SARS-CoV-2 (COVID-19) RNA MARIE+probe Ql (Unsp spec) Not detected Normal NOT DETECTED [facility] Comment on above: Result Comment: When [...] for this test is supported by the [place] of Health and Human Service's declaration that [...] be used). Performed By: #### C VDTBH ####[facility] Vftgvbvfab[address] [place] [address]Dr. Garima Pulliam LACTATE/LACTIC ACIDon 2021 Lactate [Moles/Vol] 1.7 mmol/L Normal 0.4-1.9 [facility] Comment on above: Performed By: #### L ACT ####[facility] Rqcbbixtyo[address] [place], [place] [address]Dr. Garima Pulliam PROF 14(COMP METB)on 022 Albumin [Mass/Vol] 3.8 g/dL Normal 3.4-5.0 [facility] Comment on above: Performed By: #### C MP, BNP, CMADM ####[facility] Bkojjkafxl[address] [place] [address]Dr. Garima Pulliam Albumin/Globulin [Mass ratio] 1.5 {ratio} Normal [facility] Comment on above: Performed By: #### C MP, BNP, CMADM ####[facility] Ljdamwkvwv[address] [place], [place] [address]Dr. Garima Pulliam ALP [Catalytic activity/Vol] 62 U/L Normal 46-116 [facility] Comment on above: Performed By: #### C MP, BNP, CMADM ####[facility] Nqejoynfzj6[address] [place] [address]Dr. Garmia Pulliam ALT [Catalytic activity/Vol] 37 U/L Normal 16-63 [facility] Comment on above: Performed By: #### C MP, BNP, CMADM ####[facility] Xmyjshlcko[address] [place] [address]Dr. Garima Pulliam Anion gap [Moles/Vol] 8.0 mmol/L Normal [facility] Comment on above: Performed By: #### C MP, BNP, CMADM ####[facility] Mhvtjkqbzw[address] [place] [address]Dr. Garima Pulliam AST [Catalytic activity/Vol] 20 U/L Normal 15-37 [facility] Comment on above: Performed By: #### C MP, BNP, CMADM ####[facility] Iujxlmsowu[address] [place] [address]Dr. Garima Pulliam Bilirubin [Mass/Vol] 0.6 mg/dL Normal 0.2-1.0 [facility] Comment on above: Performed By: #### C MP, BNP, CMADM ####[facility] Uozwrqvrnr[address] [place] [address]Dr. Garima Pulliam Calcium [Mass/Vol] 9.1 mg/dL Normal 8.5-10.1 [facility] Comment on above: Performed By: #### C MP, BNP, CMADM ####[facility] Poenzurlbw[address] [place] [address]Dr. Garima Pulliam Chloride [Moles/Vol] 103 mmol/L Normal 98-107 [facility] Comment on above: Performed By: #### C MP, BNP, CMADM ####[facility] Fbyphjhjxn70[address] [place] [address]Dr. Garima Pulliam CO2 [Moles/Vol] 31.8 mmol/L Normal 21.0-32.[address] [facility] Comment on above: Performed By: #### C MP, BNP, CMADM ####[facility] Mzyvsbiobi96[address] [place] [address]Dr. Garima Pulliam Creatinine [Mass/Vol] 0.63 mg/dL Critically low 0.70-1.30 [facility] Comment on above: Performed By: #### C MP, BNP, CMADM ####[facility] Aczbpmdemw[address] [place] [address]Dr. Garima Pulliam EGFR-AF TURKS AND CAICOS ISLANDER >60 Normal >=[address] [facility] Comment on above: Performed By: #### C MP, BNP, CMADM ####[facility] P[address]xekwwkyw[address]798 [place] [phone]. Garima Pulliam EGFR-NON AF TURKS AND CAICOS ISLANDER >60 Normal >=60 [facility] Comment on above: Performed By: #### C MP, BNP, CMADM ####[facility] Afyatgtoxa[address] [place] [address]Dr. Garima Pulliam Globulin (S) [Mass/Vol] 2.6 g/dL Normal [facility] Comment on above: Performed By: #### C MP, BNP, CMADM ####[facility] Ckkeunhahb3782 [place] [address]Dr. Garima Pulliam Glucose [Mass/Vol] 103 mg/dL Normal 74-106 [facility] Comment on above: Performed By: #### C MP, BNP, CMADM ####[facility] Jzbyokwrgb3616 [place] [address]Dr. Garima Pulliam Potassium [Moles/Vol] 3.8 mmol/L Normal 3.5-5.1 [facility] Comment on above: Performed By: #### C MP, BNP, CMADM ####[facility] Nmbxcnahnb0510 [place] [address]Dr. Garima Pulliam Protein [Mass/Vol] 6.4 g/dL Normal 6.4-8.2 [facility] Comment on above: Performed By: #### C MP, BNP, CMADM ####[facility] Rpalefwtmw3670 [place] [address]Dr. Garima Pulliam Sodium [Moles/Vol] 139 mmol/L Normal 136-145 [facility] Comment on above: Performed By: #### C MP, BNP, CMADM ####[facility] Btejspiaup9958 [place] [address]Dr. Garima Pulliam Urea nitrogen [Mass/Vol] 7.0 mg/dL Normal 7.0-18.0 [facility] Comment on above: Performed By: #### C MP, BNP, CMADM ####[facility] Xlqhjxvdgm1025 [place] [address]Dr. Garima Pulliam Urea nitrogen/Creatinine [Mass ratio] 11.1 mg/mg Normal [facility] Comment on above: Performed By: #### C MP, BNP, CMADM ####[facility] Jxvuubmyxj4064 [place] [address]Dr. Chapisrenu Pulliam PROTIMEon 09-29-2022 INR Coag (PPP) [Relative time] 1.14 {INR} Normal [facility] Comment on above: Performed By: #### P T, PTT ####[facility] Xygtrlyrss[address] [place], [place] [address]Dr. Garima Pulliam INR GUIDELINES SEE BELOW Normal [facility] Comment on above: Result Comment: WESLEY RED INR: 2.0 - 3.0 CONDITIONS NOT LISTED BELOW 2.5 - 3.5 FOR PROSTHETIC HEART VALVE REPLACEMENT 2.5 - 3.5 RECURRENT THROMBOSIS Performed By: #### P T, PTT ####[facility] Ahijdkqmgu[address] [place], [place] [address]Dr. Garima Pulliam PT Coag (PPP) [Time] 12.2 s Critically high 9.0-11.6 [facility] Comment on above: Performed By: #### P T, PTT ####[facility] Fszsyhbaiq[address] [place], [place] [address]Dr. Garima Pulliam PTTon 09-29-2022 aPTT Coag (Bld) [Time] 29.3 s Normal 22.3-36.2 [facility] Comment on above: Performed By: #### P T, PTT ####[facility] Dphgbwwmgs[address] [place], [place] [address]Dr. Garima Pulliam XR CHEST 1 Von 09-29-2022 XR CHEST 1 V Normal [facility] CBC AUTO DIFFon 09-26-2022 BASO # 0.0 103/ul Normal 0.0-0.1 [facility] Comment on above: Performed By: #### C BC ####[facility] Rmxsyoohce[address] [place], [place] [address]Dr. Garima Pulliam Basophils/100 WBC (Bld) 0.2 % Normal 0.2-2.0 [facility] Comment on above: Performed By: #### C BC ####[facility] Idrtmataqn[address] [place] [address]Dr. Garima Pulliam EO # 0.1 103/ul Normal 0.0-0.7 [facility] Comment on above: Performed By: #### C BC ####[facility] [address]fquusggwt[address] [place], [place] [address]Dr. Garima Pulliam Eosinophils/100 WBC (Bld) 1.0 % Normal 0.9-7.0 [facility] Comment on above: Performed By: #### C BC ####[facility] Ccwpkyzkzg[address] [place], [place] [address]Dr. Garima Pulliam Erythrocyte distribution width (RBC) [Ratio] 13.4 % Normal 11.0-15.0 [facility] Comment on above: Performed By: #### C BC ####[facility] Rqirwwneil[address] [place], [place] [address]Dr. Garima Pulliam Hematocrit (Bld) [Volume fraction] 46.3 % Normal 42.0-54.0 [facility] Comment on above: Performed By: #### C BC ####[facility] Ajgkjjcbhp[address] [place], [place] [address]Dr. Garima Pulliam Hemoglobin (Bld) [Mass/Vol] 15.3 g/dL Normal 14.0-18.0 [facility] Comment on above: Performed By: #### C BC ####[facility] Pyhcamdnpr[address] [place], [place] [address]Dr. Garima Pulliam IG # 0.05 10e3/ul Critically high 0.00-0.03 [facility] Comment on above: Performed By: #### C BC ####[facility] Jbkdkajewc[address] [place], [place] [address]Dr. Garima Pulliam IG % 0.4 % Normal 0.0-0.5 [facility] Comment on above: Performed By: #### C BC ####[facility] Jhemqlhyjt[address] [place], [place] [address]Dr. Garima Pulliam LYMPH # 1.7 103/ul Normal 1.2-3.8 [facility] Comment on above: Performed By: #### C BC ####[facility] Tnjhqlxxag[address] [place] [address]Dr. Chapisrenu Pulliam Lymphocytes/100 WBC (Bld) 12.7 % Critically low 20.5-60.0 [facility] Comment on above: Performed By: #### C BC ####[facility] Thcbqasrbw[address] [place] [address]Dr. Chapisrenu Pulliam MANUAL DIFF REQ NO Normal [facility] Comment on above: Performed By: #### C BC ####[facility] Bxhlrnbgmt5[address] [place] [address]Dr. Garima Pulliam MCH (RBC) [Entitic mass] 30.1 pg Normal 25.9-34.0 [facility] Comment on above: Performed By: #### C BC ####[facility] [address]qu[address]zejxj[address] [place], [place] [address]Dr. Garima Pulliam MCHC (RBC) [Mass/Vol] 33.0 g/dL Normal 29.9-35.2 [facility] Comment on above: Performed By: #### C BC ####[facility] [address]nih[address] [place], [place] [address]Dr. Garima Pulliam MCV (RBC) [Entitic vol] 91.1 fL Normal 80.0-94.0 [facility] Comment on above: Performed By: #### C BC ####[facility] [address]wurxnfa[address] [place], [place] [address]Dr. Garima Pulliam MONO # 0.9 103/ul Critically high 0.3-0.8 [facility] Comment on above: Performed By: #### C BC ####[facility] [address]mdmwpveah[address] [place], [place] [address]Dr. Garima Pulliam Monocytes/100 WBC (Bld) 7.0 % Normal 1.7-12.0 [facility] Comment on above: Performed By: #### C BC ####[facility] [address]ixuvstw[address] [place], [place] [address]Dr. Garima Pulliam NEUT # 10.4 103/ul Critically high 1.4-6.[address] [facility] Comment on above: Performed By: #### C BC ####[facility] Hravcilmon[address] [place] [address]Dr. Garima Pulliam Neutrophils/100 WBC (Bld) 78.7 % Critically high 43.0-75.0 [facility] Comment on above: Performed By: #### C BC ####[facility] Ufuwgfanwp1727 [place] [address]Dr. Garima Pulliam Platelet mean volume (Bld) [Entitic vol] 8.9 fL Critically low 9.5-13.5 [facility] Comment on above: Performed By: #### C BC ####[facility] Cyuqwayhut[address] [place] [address]Dr. Garima Pulliam PLT 195 103/ul Normal 150-450 [facility] Comment on above: Performed By: #### C BC ####[facility] Chdjsqoiqd3683 [place] [address]Dr. Garima Pulliam RBC 5.08 106/ul Normal 4.70-6.10 [facility] Comment on above: Performed By: #### C BC ####[facility] Lzebdsshye032[address] [place] [address]Dr. Garima Pulliam WBC 13.2 103/ul Critically high 4.0-11.[address] [facility] Comment on above: Performed By: #### C BC ####[facility] Aspwcjaulm0455 [place] [address]Dr. Garima Pulliam PROF 14(COMP METB)on 022 Albumin [Mass/Vol] 3.5 g/dL Normal 3.4-5.0 [facility] Comment on above: Performed By: #### C DAVID HSTROPN ####[facility] Xdzwwyccgl9258 [place] [phone]. Garima Pulliam Albumin/Globulin [Mass ratio] 1.2 {ratio} Normal [facility] Comment on above: Performed By: #### C DAVID, HSTROPN ####[facility] Nidtxfksoi3158 [place] [phone]. Garima Pulliam ALP [Catalytic activity/Vol] 71 U/L Normal 46-116 [facility] Comment on above: Performed By: #### C DAVID, HSTROPN ####[facility] Egrravdchp5570 [place] [address]Dr. Garima Pulliam ALT [Catalytic activity/Vol] 37 U/L Normal 16-63 [facility] Comment on above: Performed By: #### C MP, HSTROPN ####[facility] Ccpuxcpmzk8268 [place] [address]Dr. Garima Pulliam Anion gap [Moles/Vol] 4.8 mmol/L Normal [facility] Comment on above: Performed By: #### C MP, HSTROPN ####[facility] Odxplzfwnr5561 [place] [address]Dr. Garima Pulliam AST [Catalytic activity/Vol] 21 U/L Normal 15-37 [facility] Comment on above: Performed By: #### C DAVID, HSTROPN ####[facility] [address]ngvqoii[address] [place], [place] [address]Dr. Garima Pulliam Bilirubin [Mass/Vol] 0.3 mg/dL Normal 0.2-1.0 [facility] Comment on above: Performed By: #### C DAVID, HSTROPN ####[facility] [address]ryyfs[address] [place], [place] [address]Dr. Garima Pulliam Calcium [Mass/Vol] 8.9 mg/dL Normal 8.5-10.1 [facility] Comment on above: Performed By: #### C DAVID, HSTROPN ####[facility] Rijwhenrzl[address] [place], [place] [address]Dr. Garima Pulliam Chloride [Moles/Vol] 106 mmol/L Normal 98-107 [facility] Comment on above: Performed By: #### C MP, HSTROPN ####[facility] Hdpregeciq[address] [place], [place] [address]Dr. Garima Pulliam CO2 [Moles/Vol] 29.8 mmol/L Normal 21.0-32.0 [facility] Comment on above: Performed By: #### C MP, HSTROPN ####[facility] [address]uy[address] [place], [place] [address]Dr. Yilan Pulliam Creatinine [Mass/Vol] 0.68 mg/dL Critically low 0.70-1.30 [facility] Comment on above: Performed By: #### C DAVID, HSTROPN ####[facility] Xxulwbfwfm1857 [place] [address]Dr. Garima Pulliam EGFR-AF TURKS AND CAICOS ISLANDER >60 Normal >=60 [facility] Comment on above: Performed By: #### C DAVID, HSTROPN ####[facility] Lrcgouvqss67[address] [place] [address]Dr. Garima Pulliam EGFR-NON AF TURKS AND CAICOS ISLANDER >60 Normal >=60 [facility] Comment on above: Performed By: #### C DAVID, HSTROPN ####[facility] Isjnvrisbh14[address] [place] [address]Dr. Garima Pulliam Globulin (S) [Mass/Vol] 2.8 g/dL Normal [facility] Comment on above: Performed By: #### C DAVID, HSTROPN ####[facility] Mulnxnjepj9268 [place] [address]Dr. Garima Pulliam Glucose [Mass/Vol] 133 mg/dL Critically high 74-106 [facility] Comment on above: Performed By: #### C DAVID, HSTROPN ####[facility] Eheeprsbpj9[address] [place] [address]Dr. Garima Pulliam Potassium [Moles/Vol] 3.6 mmol/L Normal 3.5-5.1 [facility] Comment on above: Performed By: #### C DAVID, HSTROPN ####[facility] Yicofvgdfk6545 [place] [address]Dr. Garima Pulliam Protein [Mass/Vol] 6.3 g/dL Critically low 6.4-8.2 [facility] Comment on above: Performed By: #### C DAVID, HSTROPN ####[facility] Bybspupyhg5106 [place] [address]Dr. Garima Pulliam Sodium [Moles/Vol] 137 mmol/L Normal 136-145 [facility] Comment on above: Performed By: #### C DAVID, HSTROPN ####[facility] Qtstpumbkf2062 [place] [phone]. Garima Pulliam Urea nitrogen [Mass/Vol] 15.0 mg/dL Normal 7.0-18.0 [facility] Comment on above: Performed By: #### C MP, HSTROPN ####[facility] Ovtxyfctix1519 [place] [phone]. Garima Pulliam Urea nitrogen/Creatinine [Mass ratio] 22.1 mg/mg Normal [facility] Comment on above: Performed By: #### C MP, HSTROPN ####[facility] Hopxrzuojv2114 [place] [phone]. Garima Pulliam TROPONIN, HIGH SENSITIVITYon 09-26-2022 HSTROP 12.8 pg/mL Normal 4.0-76.1 [facility] Comment on above: Result Comment: CUT- OFF POINTS HAVE BEEN ESTABLISHED BASED ON THE FOURTH UNIVERSAL DEFINITIONS OF MYOCARDIALINFARCTION. THE UPPER REFERENCE LIMIT (URL) OF TROPONIN, DEFINED THE 99TH PERCENTILE OFcTnI DISTRIBUTION IN A REFERENCE POPULATION, HAS BEEN CONFIRMED THE DECISION THRESHOLDFOR [place] DIAGNOSIS. Performed By: #### C MP, HSTROPN ####[facility] Esrfvjxbfw8427 [place] [address]Dr. Garima Pulliam XR CHEST 1 Von 09-26-2022 XR CHEST 1 V Normal [facility] XR CHEST 1 Von 09-16-2022 XR CHEST 1 V Normal [facility] CBC AUTO DIFFon 09-15-2022 BASO # 0.0 103/ul Normal 0.0-0.1 [facility] Comment on above: Performed By: #### C BC ####[facility] Mgooaoihzu4746 [place] [phone]. Garima Heraclio Basophils/100 WBC (Bld) 0.1 % Critically low 0.2-2.0 [facility] Comment on above: Performed By: #### C BC ####[facility] Tggujvfnwy3658 [place] [phone]. Garima Heraclio EO # 0.0 103/ul Normal 0.0-0.7 [facility] Comment on above: Performed By: #### C BC ####[facility] Jmwlgeeuhl2115 [place] [phone]. Garima Pulliam Eosinophils/100 WBC (Bld) 0.1 % Critically low 0.9-7.0 [facility] Comment on above: Performed By: #### C BC ####[facility] Fundxkxdfm3862 [place] [address]Dr. Garima Pulliam Erythrocyte distribution width (RBC) [Ratio] 14.1 % Normal 11.0-15.0 [facility] Comment on above: Performed By: #### C BC ####[facility] Trxcvljhni[address] [place], [place] [address]Dr. Garima Pulliam Hematocrit (Bld) [Volume fraction] 46.1 % Normal 42.0-54.0 [facility] Comment on above: Performed By: #### C BC ####[facility] Ltkdfxkzjk750[address] [place], [place] [address]Dr. Garima Pulliam Hemoglobin (Bld) [Mass/Vol] 15.0 g/dL Normal 14.0-18.0 [facility] Comment on above: Performed By: #### C BC ####[facility] Lbiwzrqsbr0123[address] [place], [place] [address]Dr. Garima Pulliam IG # 0.03 10e3/ul Normal 0.00-0.03 [facility] Comment on above: Performed By: #### C BC ####[facility] Pluwjctglr[address] [place], [place] [address]Dr. Garima Pulliam IG % 0.3 % Normal 0.0-0.5 [facility] Comment on above: Performed By: #### C BC ####[facility] Znwxfgajab[address] [place], [place] [address]Dr. Garima Pulliam LYMPH # 0.6 103/ul Critically low 1.2-3.8 [facility] Comment on above: Performed By: #### C BC ####[facility] Fhcbrcnlqj96[address] [place], [place] [address]Dr. Garima Pulliam Lymphocytes/100 WBC (Bld) 5.8 % Critically low 20.5-60.0 [facility] Comment on above: Performed By: #### C BC ####[facility] Ykeykwwpqs1345 [place] [phone]. Garima Pulliam MANUAL DIFF REQ NO Normal [facility] Comment on above: Performed By: #### C BC ####[facility] Mgbdpskslm4795 [place] [phone]. Garima Pulliam MCH (RBC) [Entitic mass] 30.2 pg Normal 25.9-34.0 [facility] Comment on above: Performed By: #### C BC ####[facility] Yndvhvnedj7014 [place] [phone]. Garima Pulliam MCHC (RBC) [Mass/Vol] 32.5 g/dL Normal 29.9-35.2 [facility] Comment on above: Performed By: #### C BC ####[facility] Qhxrjuweyt[address] [place], [place] [address]Dr. Garima Pulliam MCV (RBC) [Entitic vol] 92.8 fL Normal 80.0-94.0 [facility] Comment on above: Performed By: #### C BC ####[facility] Olljbwsdjz[address] [place], [place] [id number]. Garima Pulliam MONO # 0.3 103/ul Normal 0.3-0.8 [facility] Comment on above: Performed By: #### C BC ####[facility] Yfabdidnck94[address] [place], [place] [address]Dr. Garima Pulliam Monocytes/100 WBC (Bld) 3.2 % Normal 1.7-12.0 [facility] Comment on above: Performed By: #### C BC ####[facility] Prxzewcjxu8[address] [place], [place] [address]Dr. Garima Pulliam NEUT # 9.8 103/ul Critically high 1.4-6.5 [facility] Comment on above: Performed By: #### C BC ####[facility] Genhnsdept[address] [place], [place] [id number]. Garima Pulliam Neutrophils/100 WBC (Bld) 90.5 % Critically high 43.0-75.0 [facility] Comment on above: Performed By: #### C BC ####[facility] Mgndjesmax9140 [place] [address]Dr. Garima Pulliam Platelet mean volume (Bld) [Entitic vol] 9.4 fL Critically low 9.5-13.5 [facility] Comment on above: Performed By: #### C BC ####[facility] Hlikwdialf9260 [place] [address]Dr. Garima Pulliam PLT 208 103/ul Normal 150-450 [facility] Comment on above: Performed By: #### C BC ####[facility] Gjpdlpmwro[address] [place], [place] [address]Dr. Garima Pulliam RBC 4.97 106/ul Normal 4.70-6.10 [facility] Comment on above: Performed By: #### C BC ####[facility] Lchrccgule[address] [place], [place] [address]Dr. Garima Pulliam WBC 10.8 103/ul Normal 4.0-11.0 [facility] Comment on above: Performed By: #### C BC ####[facility] Mwolcwweco[address] [place], [place] [address]Dr. Garima Pulliam PROF 14(COMP METB)on 022 Albumin [Mass/Vol] 4.0 g/dL Normal 3.4-5.0 [facility] Comment on above: Performed By: #### C MP ####[facility] Sfymejplnd8[address] [place], [place] [address]Dr. Garima Pulliam Albumin/Globulin [Mass ratio] 1.5 {ratio} Normal [facility] Comment on above: Performed By: #### C MP ####[facility] Kwfychbvxv[address] [place], [place] [address]Dr. Garima Pulliam ALP [Catalytic activity/Vol] 73 U/L Normal 46-116 [facility] Comment on above: Performed By: #### C MP ####[facility] Mtttpdzxwa9[address] [place], [place] [address]Dr. Garima Pulliam ALT [Catalytic activity/Vol] 42 U/L Normal 16-63 [facility] Comment on above: Performed By: #### C MP ####[facility] Llneeqiabn2905 [place] [address]Dr. Garima Pulliam Anion gap [Moles/Vol] 9.1 mmol/L Normal [facility] Comment on above: Performed By: #### C MP ####[facility] Fqmkjdxsls2057 [place] [address]Dr. Garima Pulliam AST [Catalytic activity/Vol] 28 U/L Normal 15-37 [facility] Comment on above: Performed By: #### C MP ####[facility] Xuglxhlfrc3937 [place] [address]Dr. Garima Pulliam Bilirubin [Mass/Vol] 0.6 mg/dL Normal 0.2-1.0 [facility] Comment on above: Performed By: #### C MP ####[facility] Slmtkjawhh[address] [place], [place] [address]Dr. Garima Pulliam Calcium [Mass/Vol] 8.6 mg/dL Normal 8.5-10.1 [facility] Comment on above: Performed By: #### C MP ####[facility] Xvpakgrqen934[address] [place], [place] [address]Dr. Garima Pulliam Chloride [Moles/Vol] 105 mmol/L Normal 98-107 [facility] Comment on above: Performed By: #### C MP ####[facility] Nrvdjjbkjt[address] [place], [place] [address]Dr. Garima Pulliam CO2 [Moles/Vol] 28.5 mmol/L Normal 21.0-32.[address] [facility] Comment on above: Performed By: #### C MP ####[facility] Jshxnnwdok[address] [place], [place] [address]Dr. Garima Pulliam Creatinine [Mass/Vol] 0.78 mg/dL Normal 0.70-1.30 [facility] Comment on above: Performed By: #### C MP ####[facility] Alcpnhbyfg1284 [place] [address]Dr. Garima Pulliam EGFR-AF TURKS AND CAICOS ISLANDER >60 Normal >=[address] [facility] Comment on above: Performed By: #### C MP ####[facility] Rohcqvaoex8909 [place] [address]Dr. Garima Pulliam EGFR-NON AF TURKS AND CAICOS ISLANDER >60 Normal >=60 [facility] Comment on above: Performed By: #### C MP ####[facility] Ehlkuvnhap3965 [place] [address]Dr. Garima Pulliam Globulin (S) [Mass/Vol] 2.7 g/dL Normal [facility] Comment on above: Performed By: #### C MP ####[facility] Wqgeqcnxbg0268 [place] [address]Dr. Garima Pulliam Glucose [Mass/Vol] 220 mg/dL Critically high 74-[address] [facility] Comment on above: Performed By: #### C MP ####[facility] Djlbyygeoi[address] [place], [place] [address]Dr. Garima Pulliam Potassium [Moles/Vol] 3.6 mmol/L Normal 3.5-5.1 [facility] Comment on above: Performed By: #### C MP ####[facility] Eermmblbtg[address] [place], [place] [address]Dr. Garima Pulliam Protein [Mass/Vol] 6.7 g/dL Normal 6.4-8.2 [facility] Comment on above: Performed By: #### C MP ####[facility] Akmzdrqnfz[address] [place], [place] [address]Dr. Garima Pulliam Sodium [Moles/Vol] 139 mmol/L Normal 136-145 [facility] Comment on above: Performed By: #### C MP ####[facility] Bokswvjwoc7[address] [place], [place] [address]Dr. Garima Pulliam Urea nitrogen [Mass/Vol] 11.0 mg/dL Normal 7.0-18.0 [facility] Comment on above: Performed By: #### C MP ####[facility] Clrcnpuydj8[address] [place], [place] [address]Dr. Garima Pulliam Urea nitrogen/Creatinine [Mass ratio] 14.1 mg/mg Normal [facility] Comment on above: Performed By: #### C MP ####[facility] Husuirjekz[address] [place], [place] [id number]. Garima Pulliam CARDIAC NASH 3-6on 2 CK [Catalytic activity/Vol] 240 U/L Normal 39-308 [facility] Comment on above: Performed By: #### C MREP ####[facility] Uvmkjbxbeb8475 [place], [place] [address]Ux. Garima Pulliam CK.MB [Mass/Vol] 10.38 ng/mL Critically high <=3.60 [facility] Comment on above: Performed By: #### C MREP ####[facility] Wmxahtekjy7770 [place] [phone]. Garima Pulliam HSTROP 18.5 pg/mL Normal 4.0-76.1 [facility] Comment on above: Result Comment: CUT- OFF POINTS HAVE BEEN ESTABLISHED BASED ON THE FOURTH UNIVERSAL DEFINITIONS OF MYOCARDIALINFARCTION. THE UPPER REFERENCE LIMIT (URL) OF TROPONIN, DEFINED THE 99TH PERCENTILE OFcTnI DISTRIBUTION IN A REFERENCE POPULATION, HAS BEEN CONFIRMED THE DECISION THRESHOLDFOR [place] DIAGNOSIS. Performed By: #### C MREP ####[facility] Pescjcwpke1433 [place] [phone]. Garima Pulliam CK [Catalytic activity/Vol] 257 U/L Normal 39-308 [facility] Comment on above: Performed By: #### C MREP ####[facility] Pvvdkahvdc6738 [place] [phone]. Garima Pulliam CK.MB [Mass/Vol] 9.89 ng/mL Critically high <=3.60 [facility] Comment on above: Performed By: #### C MREP ####[facility] Gptcsoulbw4673 [place] [phone]. Garima Pulliam HSTROP 16.9 pg/mL Normal 4.0-76.1 [facility] Comment on above: Result Comment: CUT- OFF POINTS HAVE BEEN ESTABLISHED BASED ON THE FOURTH UNIVERSAL DEFINITIONS OF MYOCARDIALINFARCTION. THE UPPER REFERENCE LIMIT (URL) OF TROPONIN, DEFINED THE 99TH PERCENTILE OFcTnI DISTRIBUTION IN A REFERENCE POPULATION, HAS BEEN CONFIRMED THE DECISION THRESHOLDFOR [place] DIAGNOSIS. Performed By: #### C MREP ####[facility] Pvdhbxlalt9378 [place] [address]Dr. Garima Pulliam CBC AUTO DIFFon 09-13-2022 BASO # 0.0 103/ul Normal 0.0-0.1 [facility] Comment on above: Performed By: #### C BC ####[facility] Ebitmkebow86[address] [place], [place] [address]Dr. Chapisrenu Pulliam Basophils/100 WBC (Bld) 0.1 % Critically low 0.2-2.0 [facility] Comment on above: Performed By: #### C BC ####[facility] Ydbgllqhtm69[address] [place], [place] [address]Dr. Chapisrenu Pulliam EO # 0.0 103/ul Normal 0.0-0.7 [facility] Comment on above: Performed By: #### C BC ####[facility] Gfxhiqaldh[address] [place], [place] [address]Dr. Chapisrenu Pulliam Eosinophils/100 WBC (Bld) 0.0 % Critically low 0.9-7.0 [facility] Comment on above: Performed By: #### C BC ####[facility] Bazoipqnfp[address] [place], [place] [address]Dr. Chapisrenu Pulliam Erythrocyte distribution width (RBC) [Ratio] 13.6 % Normal 11.0-15.0 [facility] Comment on above: Performed By: #### C BC ####[facility] Ztluuunkto[address] [place], [place] [address]Dr. Garima Pulliam Hematocrit (Bld) [Volume fraction] 48.2 % Normal 42.0-54.0 [facility] Comment on above: Performed By: #### C BC ####[facility] Vqcvyehbya[address] [place], [place] [address]Dr. Chapisrenu Pulliam Hemoglobin (Bld) [Mass/Vol] 16.0 g/dL Normal 14.0-18.0 [facility] Comment on above: Performed By: #### C BC ####[facility] Hyjwowpiiw[address] [place], [place] [address]Dr. Garima Pulliam IG # 0.02 10e3/ul Normal 0.00-0.03 [facility] Comment on above: Performed By: #### C BC ####[facility] Xhbvborhgz1395 [place] [phone]. Garima Pulliam IG % 0.3 % Normal 0.0-0.5 [facility] Comment on above: Performed By: #### C BC ####[facility] Hgeivzoasq2677 [place] [phone]. Garima Heraclio LYMPH # 0.5 103/ul Critically low 1.2-3.8 [facility] Comment on above: Performed By: #### C BC ####[facility] Koqqisjxkx6164 [place] [phone]. Chapisrenu Pulliam Lymphocytes/100 WBC (Bld) 7.7 % Critically low 20.5-60.0 [facility] Comment on above: Performed By: #### C BC ####[facility] Hcibgemwsy4512 [place] [address]Dr. Garima Pulliam MANUAL DIFF REQ NO Normal [facility] Comment on above: Performed By: #### C BC ####[facility] Hmzntqmcyv7025 [place] [phone]. Garima Pulliam MCH (RBC) [Entitic mass] 30.6 pg Normal 25.9-34.0 [facility] Comment on above: Performed By: #### C BC ####[facility] Ottpcfrroc2336 [place] [phone]. Garima Heraclio MCHC (RBC) [Mass/Vol] 33.2 g/dL Normal 29.9-35.2 [facility] Comment on above: Performed By: #### C BC ####[facility] Yltfbmyywq5929 [place] [phone]. Garima Pulliam MCV (RBC) [Entitic vol] 92.2 fL Normal 80.0-94.0 [facility] Comment on above: Performed By: #### C BC ####[facility] [address]my[address] [place], [place] [id number]. Garima Pulliam MONO # 0.0 103/ul Critically low 0.3-0.8 [facility] Comment on above: Performed By: #### C BC ####[facility] Zxnntybehu7439 [place] [phone]. Garima Pulliam Monocytes/100 WBC (Bld) 0.4 % Critically low 1.7-12.0 [facility] Comment on above: Performed By: #### C BC ####[facility] Agdozcclww9632 [place] [phone]. Garima Pulliam NEUT # 6.2 103/ul Normal 1.4-6.5 [facility] Comment on above: Performed By: #### C BC ####[facility] Iwdgcfsuns6075 [place] [address]Dr. Garima Pulliam Neutrophils/100 WBC (Bld) 91.5 % Critically high 43.0-75.0 [facility] Comment on above: Performed By: #### C BC ####[facility] Wsoqqfbxgo2087 [place] [address]Dr. Garima Pulliam Platelet mean volume (Bld) [Entitic vol] 8.7 fL Critically low 9.5-13.5 [facility] Comment on above: Performed By: #### C BC ####[facility] Aljgheodyo[address] [place], [place] [address]Dr. Garima Pulliam PLT 179 103/ul Normal 150-450 [facility] Comment on above: Performed By: #### C BC ####[facility] Bixglphqqc7197 [place] [phone]. Garima Pulliam RBC 5.23 106/ul Normal 4.70-6.10 [facility] Comment on above: Performed By: #### C BC ####[facility] Cjkcqtnltk1815 [place] [phone]. Garima Pulliam WBC 6.7 103/ul Normal 4.0-11.0 [facility] Comment on above: Performed By: #### C BC ####[facility] Tbkqkhncek[address] [place], [place] [address]DrAdalberto Garima Heraclio PROF CHEM 8 (BAS METB)on Anion gap [Moles/Vol] 12.1 mmol/L Normal [facility] Comment on above: Performed By: #### B MP ####[facility] Xehvdchixh0654 [place] [address]Dr. Garima Pulliam Calcium [Mass/Vol] 8.7 mg/dL Normal 8.5-10.1 [facility] Comment on above: Performed By: #### B MP ####[facility] Acpviegpbx4411 [place] [phone]. Garima Pulliam Chloride [Moles/Vol] 105 mmol/L Normal 98-107 [facility] Comment on above: Performed By: #### B MP ####[facility] Wxfqxowpbm3587 [place] [address]Dr. Garima Pulliam CO2 [Moles/Vol] 25.5 mmol/L Normal 21.0-32.0 [facility] Comment on above: Performed By: #### B MP ####[facility] Helirqemxx[address] [place], [place] [address]Dr. Garima Pulliam Creatinine [Mass/Vol] 0.63 mg/dL Critically low 0.70-1.30 [facility] Comment on above: Performed By: #### B MP ####[facility] Irgtnwezdm7901 [place] [address]Dr. Garima Pulliam EGFR-AF TURKS AND CAICOS ISLANDER >60 Normal >=60 [facility] Comment on above: Performed By: #### B MP ####[facility] Xhygoenmtr2866 [place] [address]Dr. Garima Pulliam EGFR-NON AF TURKS AND CAICOS ISLANDER >60 Normal >=60 [facility] Comment on above: Performed By: #### B MP ####[facility] Mmxcmavfjq2062 [place] [address]Dr. Garima Pulliam Glucose [Mass/Vol] 162 mg/dL Critically high 74-106 [facility] Comment on above: Performed By: #### B MP ####[facility] Cnqhelnghq5493 [place] [address]Dr. Garima Pulliam Potassium [Moles/Vol] 3.6 mmol/L Normal 3.5-5.1 [facility] Comment on above: Performed By: #### B MP ####[facility] Qhqsgfydzw5245 [place] [phone]. Garima Pulliam Sodium [Moles/Vol] 139 mmol/L Normal 136-145 [facility] Comment on above: Performed By: #### B MP ####[facility] Wygyihufgh8231 [place] [phone]. Garima Heraclio Urea nitrogen [Mass/Vol] 9.0 mg/dL Normal 7.0-18.0 [facility] Comment on above: Performed By: #### B MP ####[facility] Dnnmdtyfbq5001 [place] [phone]. Garima Pulliam Urea nitrogen/Creatinine [Mass ratio] 14.3 mg/mg Normal [facility] Comment on above: Performed By: #### B DAVID ####[facility] Wfqwlbgguh9173 [place] [address]Dr. Garima Pulliam CARDIAC NASH ADMITon 022 CK [Catalytic activity/Vol] 304 U/L Normal 39-308 [facility] Comment on above: Performed By: #### B DAVID, NANCY ####[facility] Mwhyhfossn8925 [place] [phone]. Garima Pulliam CK.MB [Mass/Vol] 11.81 ng/mL Critically high <=3.60 [facility] Comment on above: Performed By: #### B DAVID, NANCY ####[facility] Zaaiatxvya3338 [place] [address]Dr. Chapisrenu Pulliam HSTROP 13.3 pg/mL Normal 4.0-76.1 [facility] Comment on above: Result Comment: CUT- OFF POINTS HAVE BEEN ESTABLISHED BASED ON THE FOURTH UNIVERSAL DEFINITIONS OF MYOCARDIALINFARCTION. THE UPPER REFERENCE LIMIT (URL) OF TROPONIN, DEFINED THE 99TH PERCENTILE OFcTnI DISTRIBUTION IN A REFERENCE POPULATION, HAS BEEN CONFIRMED THE DECISION THRESHOLDFOR [place] DIAGNOSIS. Performed By: #### B DAVID, CMADM ####[facility] Ztzcpebbcg0843 [place] [address]Dr. Garima Pulliam DORIS 133 ng/mL Critically high 16-96 [facility] Comment on above: Performed By: #### B ERVIN HERNANDEZDM ####[facility] Hspnrfdrgk0153 [place] [phone]. Garima Heraclio CBC AUTO DIFFon 09-12-2022 BASO # 0.0 103/ul Normal 0.0-0.1 [facility] Comment on above: Performed By: #### C BC ####[facility] Vuklctcadl3114 [place] [phone]. Chapisrenu Pulliam Basophils/100 WBC (Bld) 0.2 % Normal 0.2-2.0 [facility] Comment on above: Performed By: #### C BC ####[facility] Soegziwagj[address] [place], [place] [address]Dr. Chapisrenu Pulliam EO # 0.2 103/ul Normal 0.0-0.7 [facility] Comment on above: Performed By: #### C BC ####[facility] K[address]qfqzdzg[address] [place], [place] [address]Dr. Chapisrenu Pulliam Eosinophils/100 WBC (Bld) 1.3 % Normal 0.9-7.0 [facility] Comment on above: Performed By: #### C BC ####[facility] Ytgyxrlgxt[address] [place], [place] [address]Dr. Garima Heraclio Erythrocyte distribution width (RBC) [Ratio] 13.7 % Normal 11.0-15.0 [facility] Comment on above: Performed By: #### C BC ####[facility] Usgqibcccl[address] [place], [place] [address]Dr. Garima Heraclio Hematocrit (Bld) [Volume fraction] 46.4 % Normal 42.0-54.0 [facility] Comment on above: Performed By: #### C BC ####[facility] Yfxemycxip[address] [place], [place] [address]Dr. Chapisrenu Pulliam Hemoglobin (Bld) [Mass/Vol] 15.7 g/dL Normal 14.0-18.0 [facility] Comment on above: Performed By: #### C BC ####[facility] Xclyuvhqti[address] [place], [place] [address]Dr. Garima Pulliam IG # 0.04 10e3/ul Critically high 0.00-0.03 [facility] Comment on above: Performed By: #### C BC ####[facility] Dhwrrykfho6394 [place] [phone] Chapisrenu Pulliam IG % 0.3 % Normal 0.0-0.5 [facility] Comment on above: Performed By: #### C BC ####[facility] Ximsqrulnf0351 [place] [phone] Pulliam LYMPH # 1.7 103/ul Normal 1.2-3.8 [facility] Comment on above: Performed By: #### C BC ####[facility] Foollhffwa4109 [place] [phone] Pulliam Lymphocytes/100 WBC (Bld) 11.5 % Critically low 20.5-60.0 [facility] Comment on above: Performed By: #### C BC ####[facility] Jnomzwxlvc4601 [place] [address]DrAdalberto Pulliam MANUAL DIFF REQ NO Normal [facility] Comment on above: Performed By: #### C BC ####[facility] [address] [place] [id number] Garima Heraclio MCH (RBC) [Entitic mass] 31.0 pg Normal 25.9-34.0 [facility] Comment on above: Performed By: #### C BC ####[facility] [address] [place] [id number] Chapisrenu Pulliam MCHC (RBC) [Mass/Vol] 33.8 g/dL Normal 29.9-35.2 [facility] Comment on above: Performed By: #### C BC ####[facility] [address] [place] [id number] Chapisrenu Pulliam MCV (RBC) [Entitic vol] 91.7 fL Normal 80.0-94.0 [facility] Comment on above: Performed By: #### C BC ####[facility] [address] [place] [id number] Pulliam MONO # 0.8 103/ul Normal 0.3-0.8 [facility] Comment on above: Performed By: #### C BC ####[facility] [address] [place] [id number]. Garima Pulliam Monocytes/100 WBC (Bld) 5.2 % Normal 1.7-12.0 [facility] Comment on above: Performed By: #### C BC ####[facility] [address]fp[address] [place] [id number]. Garima Pulliam NEUT # 11.7 103/ul Critically high 1.4-6.5 [facility] Comment on above: Performed By: #### C BC ####[facility] [address] [place] [address]Dr. Garima Pulliam Neutrophils/100 WBC (Bld) 81.5 % Critically high 43.0-75.0 [facility] Comment on above: Performed By: #### C BC ####[facility] [address] [place] [address]Dr. Garima Pulliam Platelet mean volume (Bld) [Entitic vol] 8.6 fL Critically low 9.5-13.5 [facility] Comment on above: Performed By: #### C BC ####[facility] [address] [place], [place] [address]Dr. Garima Pulliam PLT 191 103/ul Normal 150-450 [facility] Comment on above: Performed By: #### C BC ####[facility] [address] [place] [id number]. Garima Pulliam RBC 5.06 106/ul Normal 4.70-6.10 [facility] Comment on above: Performed By: #### C BC ####[facility] [address]we[address] [place] [id number]. Garima Pulliam WBC 14.4 103/ul Critically high 4.0-11.[address] [facility] Comment on above: Performed By: #### C BC ####[facility] [address] [place] [id number]. Garima Pulliam [facility]24 SARS-CoV-2 (COVID-19) RNA MARIE+probe Ql (Unsp spec) Not detected Normal NOT DETECTED [facility] Comment on above: Result Comment: When [...] for this test is supported by the Reimbursement Manager of Health and Human Service's declaration that [...] be used). Performed By: #### C VDTBH ####[facility] [address] [place] [address]Dr. Garima Pulliam LACTATE/LACTIC ACIDon 2021 Lactate [Moles/Vol] 1.0 mmol/L Normal 0.4-1.9 [facility] Comment on above: Performed By: #### L ACT ####[facility] [address] [place] [address]Dr. Garima Pulliam PROF CHEM 8 (BAS METB)on Anion gap [Moles/Vol] 11.6 mmol/L Normal [facility] Comment on above: Performed By: #### B MP, CMADM ####[facility] [address] [place] [address]Dr. Garima Pulliam Calcium [Mass/Vol] 9.2 mg/dL Normal 8.5-10.1 [facility] Comment on above: Performed By: #### B MP, CMADM ####[facility] [address] [place] [address]Dr. Garima Pulliam Chloride [Moles/Vol] 105 mmol/L Normal 98-107 [facility] Comment on above: Performed By: #### B DAVID, CMADM ####[facility] [address] [place] [address]Dr. Garima Pulliam CO2 [Moles/Vol] 25.9 mmol/L Normal 21.0-32.0 [facility] Comment on above: Performed By: #### B DAVID, CMADM ####[facility] [address] [place] [address]Dr. Garima Pulliam Creatinine [Mass/Vol] 0.72 mg/dL Normal 0.70-1.30 [facility] Comment on above: Performed By: #### B DAVID, CMADM ####[facility] [address] [place] [address]Dr. Garima Pulliam EGFR-AF TURKS AND CAICOS ISLANDER >60 Normal >=60 [facility] Comment on above: Performed By: #### B DAVID, CMADM ####[facility] [address] [place] [address]Dr. Garima Pulliam EGFR-NON AF TURKS AND CAICOS ISLANDER >60 Normal >=60 [facility] Comment on above: Performed By: #### B DAVID, CMADM ####[facility] [address] [place] [address]Dr. Garima Pulliam Glucose [Mass/Vol] 111 mg/dL Critically high 74-106 [facility] Comment on above: Performed By: #### B DAVID, CMADM ####[facility] [address] [place] [address]Dr. Garima Pulliam Potassium [Moles/Vol] 3.5 mmol/L Normal 3.5-5.1 [facility] Comment on above: Performed By: #### B DAVID, CMADM ####[facility] [address] [place] [address]Dr. Garima Pulliam Sodium [Moles/Vol] 139 mmol/L Normal 136-145 [facility] Comment on above: Performed By: #### B DAVID, CMADM ####[facility] [address] [place] [address]Dr. Garima Pulliam Urea nitrogen [Mass/Vol] 7.0 mg/dL Normal 7.0-18.0 [facility] Comment on above: Performed By: #### B NANCY HERNANDEZ ####[facility] [address] [place], [place] [address]Tf. Garima Heraclio Urea nitrogen/Creatinine [Mass ratio] 9.7 mg/mg Normal [facility] Comment on above: Performed By: #### B DAVID, NANCY ####[facility] [address] [place], [place] [address]Gq. Garima Pulliam XR CHEST 1 Von 09-12-2022 XR CHEST 1 V Normal [facility] Encounters Encounter Date Encounter Type Care [...] Facility:H1 Payers Date Payer Category Payer Unknown [id number] 1960 Medicaid [id number] 1960 Unknown [id number] 1959 Unknown [id number] 1954 Unknown [id number] 2.16.84 0.1.152788.3.579.2.593 1954 Unknown [id number] 2.16.84 0.1.561267.3.579.2.593 1954 Unknown [id number] 2.16.84 0.1.511423.3.579.2.593 1954 Unknown [id number] 2.16.84 0.1.972276.3.579.2.593 1954 Unknown [id number] 2.16.84 0.1.351839.3.579.2.593 1954 Unknown [id number] 2.16.84 0.1.762901.3.579.2.593 1954 Unknown [id number] 2.16.84 0.1.103673.3.579.2.593 1954 Unknown [id number] 2.16.84 0.1.546385.3.579.2.593 1954 Unknown [id number] 2.16.84 0.1.735852.3.579.2.593 1954 Unknown [id number] 2.16.84 0.1.130420.3.579.2.593 1954 Unknown [id number] 2.16.84 0.1.761199.3.579.2.593 1954 Unknown [id number] 2.16.84 0.1.559860.3.579.2.593 1954 Unknown [id number] 2.16.84 0.1.990024.3.579.2.593 1954 Unknown [id number] 2.16.84 0.1.159021.3.579.2.593 1954 Unknown [id number] 2.16.84 0.1.333867.3.579.2.593 1954 Unknown [id number] 2.16.84 0.1.158198.3.579.2.593 1954 Unknown [id number] 2.16.84 0.1.019180.3.579.2.593 1954 Unknown [id number] 2.16.84 0.1.678156.3.579.2.593 1954 Unknown [id number] 2.16.84 0.1.644166.3.579.2.593 1954 Unknown [id number] 2.16.84 0.1.236902.3.579.2.593 Summary Purpose Family History No Family History Records Found Advance Directives No Advanced Directives Records Found Additional Source Comments (unrecognized sect ion and content) No Status Records Found INFORMATION SOURCE (unrecogn ized section and content) DATE CREATED AUTHOR 04/08/2023 The [facility] FOR RECORDS PERTAINING TO PATIENTS WHO ARE [...] BE BASED ON THE PRIMARY CLINICAL RECORDS. [facility]. provides no warranty or guarantee of the accuracy or completeness of information in this document.
[2023-12-25] MEDS: ENOXAPARIN SODIUM 40 MG/0.4 ML SYRINGE SUBQ (22:32)
[2023-12-25] MEDS: 0.9 % SODIUM CHLORIDE 1,000 ML 100 ML IV (22:32)
[2023-12-25] MEDS: AZITHROMYCIN 500 MG in 0.9 % SODIUM CHLORIDE 250 ML 125 MG IV (22:32)
[2023-12-26] VITALS (23 sets, daily range): BP systolic 156–181; BP diastolic 77–105; PULSE 68–111; RESP 18–20; TEMP 36.5–36.7; O2SAT 87–95
[2023-12-26] MEDS: METHYLPREDNISOLONE SOD SUCC PF 125 MG/2 ML VIAL 60 MG IVP ×3 (02:52→21:04)
[2023-12-26] MEDS: HYDRALAZINE HCL 20 MG/ML VIAL 10 MG IVP (04:42)
[2023-12-26] MEDS: IPRATROPIUM/ALBUTEROL SULFATE 3 ML AMPUL.NEB IH ×4 (04:45→23:39)
[2023-12-26] MEDS: BENZONATATE 100 MG CAPSULE PO (05:31)
[2023-12-26 06:11] LABS: Hematocrit 41.3 % (42.0-54.0); Hemoglobin 13.3 g/dL (14.0-18.0); Immature Granulocytes Abs Auto 0.01 10^3/uL (0.00-0.03); Immature Granulocytes Pct Auto 0.2 % (0.0-0.5); Lymphocytes Absolute Auto 0.7 10^3/uL (1.2-3.8); Lymphocytes Percent Auto 10.6 % (20.5-60.0); Mean Corpuscular HGB Conc 32.2 g/dL (29.9-35.2); Mean Corpuscular Hemoglobin 29.8 pg (25.9-34.0); Mean Corpuscular Volume 92.4 fL (80.0-94.0); Mean Platelet Volume 9.6 fL (9.5-13.5); Monocytes Absolute Auto 0.3 10^3/uL (0.3-0.8); Monocytes Percent Auto 3.9 % (1.7-12.0); Neutrophils Absolute Auto 5.4 10^3/uL (1.4-6.5); Neutrophils Percent Auto 85.3 % (43.0-75.0); Platelet Count 217 10^3/uL (150-450); Red Blood Count 4.47 10^6/uL (4.70-6.10); Red Cell Distribution Width 13.6 % (11.0-15.0); White Blood Count 6.4 10^3/uL (4.0-11.0)
[2023-12-26 06:48] LABS: Alanine Aminotransferase 26 U/L (16-63); Alkaline Phosphatase 59 U/L (46-116); Anion Gap 13.5; Aspartate Amino Transferase 14 U/L (15-37); BUN Creatinine Ratio 11.1; Bilirubin Total 0.4 mg/dL (0.2-1.0); Calcium 8.4 mg/dL (8.5-10.1); Carbon Dioxide 25.5 mmol/L (21.0-32.0); Chloride 103 mmol/L (98-107); Estimated GFR (African America >60 (>=60); Estimated GFR (Non-African Ame >60 (>=60); Glucose 258 mg/dL (74-106); Sodium 138 mmol/L (136-145)
[2023-12-26 06:49] LABS: Albumin Globulin Ratio 1.1; Albumin Level 3.1 g/dL (3.4-5.0); Globulin 2.7 g/dL; Total Protein 5.8 g/dL (6.4-8.2)
[2023-12-26] MEDS: NICOTINE 14 MG PATCH.TD24 TD (09:04)
[2023-12-26] MEDS: 0.9 % SODIUM CHLORIDE 1,000 ML 100 ML IV (09:05)
[2023-12-26] MEDS: LOSARTAN POTASSIUM 25 MG TABLET 100 MG PO (09:06)
[2023-12-26] MEDS: OMEPRAZOLE 20 MG CAPSULE.DR PO (09:06)
--- NOTE | 2023-12-26 09:54 | P.HP_ITS ---
H&P: HPI History of Present Illness Chief complaint: Difficulty Breathing ACUTE EXACERBATION COPD Narrative: Patient presented to the emergency room and found to have right upper lobe pneumonia, recommended admission but patient wanted to try at home. Patient on oral antibiotics doxycycline, patient symptoms deteriorate at home with increasing shortness of breath. Presented to the emergency room and found to have significant hypoxia with O2 sat at 87% on 3 L. Patient was admitted for workup and treatment of same Review of Systems ROS Status of ROS 10 or more systems reviewed and unremark able except as noted in history and below Cardiovascular Denies: chest pain PFSH PFSH Medical History (Updated 12/25/23 @ 20:18 by Arabella Wills) RLL pneumonia ?J18.9 - Pneumonia, unspecified organism (ICD-10) COPD (chronic obstructive pulmonary disease) ?J44.9 - Chronic obstructive pulmonary disease, unspecified (ICD-10) Family History (Updated 12/25/23 @ 21:28 by Kym Ordaz) Mother Family history of cancer Family history of hypertension Father Family history of cancer Social History (Updated 12/25/23 @ 21:30 by Kym Ordaz) Within the past year, how often did you have a drink containing alcohol: 4 or more times a week Within the past year, how many standard drinks containing alcohol did you have on a typical day: 3 or 4 Within the past year, how often did you have six or more drinks on one occasion: less than monthly Total score: 3 Score interpretation: A score of 4 or more indicates drinking is likely to affect patient's safety. Smoking status: Current every day smoker Non-prescribed substance use: cannabis (any form) Previous occupational history: retired Highest level of school completed/degree received: high school graduate Are you now , , , , never or living with a partner: In a typical week, how many times do you talk on the telephone with family, friends, or neighbors: twice per week How often do you get together with friends or relatives: once per week How often do you attend yarsani or gnosticism services: never Do you belong to any clubs or organizations such as yarsani groups unions, fraternal or athletic groups, or school groups: no Total score: 1 Score interpretation: A score of less than or equal to 1 indicates the most socially isolated. Little interest or pleasure in doing things: several days Feeling down, depressed, or hopeless: not at all Feel stressed/tense/nervous/anxious/difficulty sleeping: not at all Do you think of yourself as: straight/heterosexual Gender Identity: male Meds Home Medications and Allergies Home Medications Medication Instructions Recorded Confirmed Type losartan 25 mg tablet (Cozaar) 25 mg PO DAILY 10/22/23 12/25/23 History omeprazole 20 mg capsule,delayed 20 mg PO DAILY 10/22/23 12/25/23 History release albuterol sulfate 2.5 mg/3 mL 2.5 mg inhalation Q6H PRN 11/02/23 12/26/23 History (0.083 %) solution for nebulization shortness of breath or wheezing albuterol sulfate 90 mcg/actuation 2 inh inhalation Q6H PRN shortness 12/17/23 12/25/23 Rx aerosol inhaler of breath or wheezing #8.5 grams fluticasone 250 mcg-salmeterol 50 1 inh inhalation BID 12/25/23 12/25/23 History mcg/dose blistr powdr for inhalation (Wixela Inhub) tiotropium bromide 2.5 2 inh inhalation BID 12/25/23 12/25/23 History mcg/actuation mist for inhalation (Spiriva Respimat) Allergies Allergy/AdvReac Type Severity Reaction Status Date / Time No Known Drug Allergies Allergy Verified 11/24/23 16:17 Exam Constitutional Vital Signs, click to edit/add: Last Vital Signs Temp 97.7 F 12/26/23 04:37 Pulse 102 H 12/26/23 08:00 Resp 20 12/26/23 05:32 BP 165/77 H 12/26/23 05:32 Pulse Ox 90 L 12/26/23 07:36 O2 Del Method Room Air 12/26/23 07:36 O2 Flow Rate 4 12/26/23 05:32 Documenting provider has reviewed patient's vital signs: yes Common normals: apparent distress (Labored breathing with mild conversational dyspnea) Chest Common normals: inspection of chest normal Respiratory Common normals: abnormal respiratory effort (Mild dyspnea at rest) and not clear to ascultation bilaterally Auscultation: rhonchi, wheezes, diminished lung sounds and egophony (Right upper lobe) right upper Cardio Common normals: regular rate and regular rhythm Results Labs Labs: Short CBC 12/25/23 12/26/23 Range/Units 18:24 04:00 WBC 11.5 H 6.4 (4.0-11.0) 10^3/uL Hgb 14.2 13.3 L (14.0-18.0) g/dL Hct 43.2 41.3 L (42.0-54.0) % Plt Count 214 217 (150-450) 10^3/uL BMP 12/25/23 12/26/23 18:24 04:00 Sodium 137 138 Potassium 3.8 4.0 Chloride 102 103 Carbon Dioxide 30.2 25.5 BUN 10.0 9.0 Creatinine 0.82 0.81 Glucose 151 H 258 H Calcium 9.2 8.4 L Liver Function 12/25/23 12/26/23 Range/Units 18:24 04:00 Total Bilirubin 0.5 0.4 (0.2-1.0) mg/dL AST 20 14 L (15-37) U/L ALT 32 26 (16-63) U/L Alkaline Phosphatase 70 59 (46-116) U/L Albumin 3.8 3.1 L (3.4-5.0) g/dL Assessment and Plan Assessment and Plan (1) Community acquired pneumonia: (2) Chronic obstructive pulmonary disease: (3) Acute exacerbation of chronic obstructive pulmonary disease (COPD): Plan Respiratory distress, uncontrolled hypertension, leukocytosis, acute hypoxia with O2 sat of 87% on 3 L resulting in acute exacerbation of COPD secondary to right upper lobe pneumonia. Frequent aerosol treatments, steroids, IV antibiotics, try to obtain sputum culture. Failed outpatient treatment with oral antibiotics, patent unsure which 1 but possibly doxycycline. Also been using his home breathing treatments without significant improvement. Patient is overall somewhat improved this morning. Still with significant dyspnea with any ambulation just in his room. Patient's medical treatment will span 2 midnights and will change patient to inpatient status COPD-acute exacerbation-see above Hypertension-continue with home medications but adjust dose GERD-continue with home medications Hyperglycemia-possibly medication induced-monitor daily Iron deficiency anemia-monitor daily With hypoxia this a.m. and dyspnea with continued activity and already failed outpatient treatment, definitive medical treatments will span 2 midnights or will change patient to inpatient status. Likely here 2 more days
[2023-12-26] MEDS: BUDESONIDE 0.5 MG/2 ML AMPULE NEB IH ×2 (11:14→23:40)
[2023-12-26] MEDS: MAALOX (MAG HYDROX/ALUMINUM HYD/SIMETH) 30 ML ORAL.SUSP PO ×2 (17:03→21:03)
[2023-12-26] MEDS: ENOXAPARIN SODIUM 40 MG/0.4 ML SYRINGE SUBQ (21:01)
[2023-12-26] MEDS: AZITHROMYCIN 500 MG in 0.9 % SODIUM CHLORIDE 250 ML 250 MG IV (21:02)
[2023-12-26] MEDS: CEFTRIAXONE 1,000 MG in 0.9 % SODIUM CHLORIDE 50 ML 100 MG IV (22:10)
[2023-12-27] VITALS (7 sets, daily range): BP systolic 157; BP diastolic 87; PULSE 61–79; RESP 20; TEMP 37.1; O2SAT 90
[2023-12-27] MEDS: IPRATROPIUM/ALBUTEROL SULFATE 3 ML AMPUL.NEB IH (05:10)
[2023-12-27 05:41] LABS: Basophils Percent Auto 0.1 % (0.2-2.0); Hematocrit 39.6 % (42.0-54.0); Hemoglobin 13.3 g/dL (14.0-18.0); Immature Granulocytes Abs Auto 0.05 10^3/uL (0.00-0.03); Immature Granulocytes Pct Auto 0.4 % (0.0-0.5); Lymphocytes Absolute Auto 0.8 10^3/uL (1.2-3.8); Lymphocytes Percent Auto 6.9 % (20.5-60.0); Mean Corpuscular HGB Conc 33.6 g/dL (29.9-35.2); Mean Corpuscular Hemoglobin 30.4 pg (25.9-34.0); Mean Corpuscular Volume 90.4 fL (80.0-94.0); Mean Platelet Volume 9.3 fL (9.5-13.5); Monocytes Absolute Auto 0.4 10^3/uL (0.3-0.8); Monocytes Percent Auto 3.6 % (1.7-12.0); Neutrophils Absolute Auto 10.2 10^3/uL (1.4-6.5); Platelet Count 226 10^3/uL (150-450); Red Blood Count 4.38 10^6/uL (4.70-6.10); Red Cell Distribution Width 13.6 % (11.0-15.0); White Blood Count 11.4 10^3/uL (4.0-11.0)
[2023-12-27] MEDS: METHYLPREDNISOLONE SOD SUCC PF 125 MG/2 ML VIAL 60 MG IVP (05:52)
[2023-12-27 06:03] LABS: Alanine Aminotransferase 24 U/L (16-63); Albumin Globulin Ratio 1.2; Albumin Level 3.2 g/dL (3.4-5.0); Alkaline Phosphatase 55 U/L (46-116); Anion Gap 11.7; Aspartate Amino Transferase 14 U/L (15-37); BUN Creatinine Ratio 17.9; Bilirubin Total 0.4 mg/dL (0.2-1.0); Calcium 8.6 mg/dL (8.5-10.1); Carbon Dioxide 27.5 mmol/L (21.0-32.0); Chloride 104 mmol/L (98-107); Estimated GFR (African America >60 (>=60); Estimated GFR (Non-African Ame >60 (>=60); Globulin 2.6 g/dL; Glucose 244 mg/dL (74-106); Potassium 3.2 mmol/L (3.5-5.1); Sodium 140 mmol/L (136-145); Total Protein 5.8 g/dL (6.4-8.2)
[2023-12-27] MEDS: LOSARTAN POTASSIUM 25 MG TABLET 100 MG PO (08:58)
[2023-12-27] MEDS: OMEPRAZOLE 20 MG CAPSULE.DR PO (08:58)
[2023-12-27] MEDS: POTASSIUM CHLORIDE 10 MEQ ER TABLET 20 MEQ PO (08:59)
--- NOTE | 2023-12-27 09:24 | PM.DS1 ---
DS: Providers Provider Date of admission: 12/25/23 20:57 Primary care physician: Non-Staff Physician, DS: Diagnosis Discharge Diagnosis (1) Community acquired pneumonia: (2) Chronic obstructive pulmonary disease: (3) Acute exacerbation of chronic obstructive pulmonary disease (COPD): DS: Summary Hospital Course Hospital Course: Patient was treated as an outpatient for right lower lobe pneumonia. At increasing shortness of breath and presented to the emergency room and had of acute hypoxia. Still has relative hypoxia this morning with O2 sat of 90% on room air at rest. Patient did have significant leukocytosis as well. With the left shift. He does state his breathing feels better to him. Still some dyspnea with activity however. At this point patient feels comfortable with going home since he is no longer truly hypoxic. Do not do the ambulating test. He may need that as an outpatient depending on how dyspnea progresses. Does have some mild hypokalemia today. Will treat that orally. Sugars are elevated secondary to steroid use. At this point patient will be discharged home in improving condition. Medications see list. Follow-up with PCP next week. Patient's care did require the stay of 2 midnights and thus changed to inpatient status between the need for IV antibiotics and failed outpatient treatment needing the 2 midnight stay was anticipating an additional day or 2 but patient does feel improved and wants to try it at home. Time Spent with Patient Time attestation: Total time spent providing and/or coordinating discharge services: Exam Constitutional Vital Signs, click to edit/add: Last Vital Signs Temp 98.7 F 12/27/23 05:11 Pulse 67 12/27/23 07:53 Resp 20 12/27/23 05:11 BP 157/87 H 12/27/23 05:11 Pulse Ox 90 L 12/27/23 05:11 O2 Del Method Room Air 12/27/23 05:11 O2 Flow Rate 3 12/26/23 11:15 Documenting provider has reviewed patient's vital signs: yes Common normals: apparent distress (Labored breathing with mild conversational dyspnea) Chest Common normals: inspection of chest normal Respiratory Common normals: abnormal respiratory effort (Mild dyspnea at rest) and not clear to ascultation bilaterally Auscultation: rhonchi, wheezes and diminished lung sounds; no egophony (Right upper lobe -resolved) Cardio Common normals: regular rate and regular rhythm DS: Data Data Completed and Pending Labs on day of discharge: Labs from last 24 hours 12/27/23 04:16 WBC 11.4 H RBC 4.38 L Hgb 13.3 L Hct 39.6 L MCV 90.4 MCH 30.4 MCHC 33.6 RDW 13.6 Plt Count 226 MPV 9.3 L Neut % (Auto) 89.0 H Lymph % (Auto) 6.9 L [place] % (Auto) 3.6 Eos % (Auto) 0.0 L Baso % (Auto) 0.1 L Neut # (Auto) 10.2 H Lymph # (Auto) 0.8 L [place] # (Auto) 0.4 Eos # (Auto) 0.0 Baso # (Auto) 0.0 Abs Immat Gran (auto) 0.05 H Imm/Tot Granulo (auto) 0.4 Sodium 140 Potassium 3.2 L Chloride 104 Carbon Dioxide 27.5 Anion Gap 11.7 BUN 15.0 Creatinine 0.84 Est GFR ( Amer) >60 Est GFR (Non-Af Amer) >60 BUN/Creatinine Ratio 17.9 Glucose 244 H Calcium 8.6 Total Bilirubin 0.4 AST 14 L ALT 24 Alkaline Phosphatase 55 Total Protein 5.8 L Albumin 3.2 L Globulin 2.6 Albumin/Globulin Ratio 1.2 Discharge Plan Discharge Disposition: Home, Self-Care Condition: Good Discharge Medications: New prednisone 10 mg tablet 50 mg PO DAILY Qty: 47 0RF Rx Instructions: 5/day for 3 days. 4/day for 3 days, 3/day for 3 days, 2/day for 3 days, 1/day for 3 days, 1/2 /day for 4 days losartan 100 mg tablet 100 mg PO DAILY Qty: 30 11RF cefdinir 300 mg capsule 600 mg PO DAILY Qty: 20 0RF Continued omeprazole 20 mg capsule,delayed release(DR/EC) 20 mg PO DAILY albuterol sulfate 2.5 mg /3 mL (0.083 %) solution for nebulization 2.5 mg inhalation Q6H PRN (Reason: shortness of breath or wheezing) Spiriva Respimat 2.5 mcg/actuation mist 2 inh inhalation BID fluticasone propion-salmeterol [Wixela Inhub] 250-50 mcg/dose blister with device 1 inh inhalation BID albuterol sulfate 90 mcg/actuation HFA aerosol inhaler 2 inh inhalation Q6H PRN (Reason: shortness of breath or wheezing) Qty: 8.5 2RF Discontinued losartan [Cozaar] 25 mg tablet 25 mg PO DAILY Activity: increase activity as tolerated Diet: advance to your usual diet Patient Instructions: Prednisone (By mouth), Cefdinir (By mouth) (Omnicef), COPD (Chronic Obstructive Pulmonary Disease) (DC) Forms: Portal Instructions Follow Up Appointments: Has no PCP. Sheet with doctor's accepting new patients given to patient to call.
--- NOTE | 2024-01-04 14:51 | CM.DCFOLLOWU ---
Person spoke with: patient How are you feeling? well How is your pain? no pain Did you understand your discharge instructions? yes Do you have any questions about your discharge instructions? no Were you given any prescriptions at discharge?yes Were you able to get your prescriptions filled? yes Do you understand how to take your medications as ordered? yes Do you have any questions about your follow up appointment and do you plan to keep your follow up appointment? Does not have PCP, he could not remember if he called someone on the list provided to him. Advised to call one and get an appointment scheduled. Pt voices he still has list with his paperwork Is there anything else that you would like to discuss? no Questions/Comments/Concerns/Other: N/A
== END 2023-12-27 10:40 | disposition home or self-care (01) ==
LOC: ER 20:28 → MS 21:02
PROVIDERS: Nurse Practitioner Acute Care; Physician Assistant; Admitting Provider Family Medicine; Emergency Provider Emergency Medicine Emergency Medical Services; Visit Provider Family Medicine
DX: J18.9 Pneumonia, unspecified organism (principal); J44.0 Chronic obstructive pulmonary disease with (acute) lower respiratory infection; J44.1 Chronic obstructive pulmonary disease with (acute) exacerbation; E87.6 Hypokalemia; F17.210 Nicotine dependence, cigarettes, uncomplicated; F12.90 Cannabis use, unspecified, uncomplicated; Z91.141 Patient's other noncompliance with medication regimen due to financial hardship; R06.03 Acute respiratory distress; R09.02 Hypoxemia; I10 Essential (primary) hypertension; K21.9 Gastro-esophageal reflux disease without esophagitis; R73.9 Hyperglycemia, unspecified; T38.0X5A Adverse effect of glucocorticoids and synthetic analogues, initial encounter; Z79.899 Other long term (current) drug therapy; Z20.822 Contact with and (suspected) exposure to COVID-19
CPT/HCPCS: 0202U; 36415; 71045; 80053; 83735; 83880; 84484; 85025; 85610; 85730; 87070; 93005; 94640; 94667; 94668; 94761; 96365; 96366; 96367; 96372; 96375; 96376; 99285; G0378; J0360; J0456; J0696; J1650; J2930

== ENCOUNTER 2023-12-29 15:03 | Emergency (ER) | payer MEDICARE, SELFPAY ==
[2023-12-29 15:09] VITALS: BP 182/100; PULSE 84; RESP 22; TEMP 36.6; O2SAT 94; BMI 25.0
--- NOTE | 2023-12-29 15:15 | ECG_ITS ---
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
--- NOTE | 2023-12-29 15:18 | ED_ITS ---
HPI - SOB/Dyspnea General Chief Complaint: Shortness of Breath/Dyspnea Stated Complaint: Difficulty Breathing Time Seen by Provider: 12/29/23 15:03 Source: patient Mode of arrival: Wheelchair History of Present Illness HPI Narrative: Patient is a 68-year-old male well-known to this emergency department with a history of COPD who presents for worsening shortness of breath today. He was seen in this emergency department multiple times last week and diagnosed with right upper lobe pneumonia and hypoxia and was admitted for IV antibiotics. He was discharged on 12/27/2023. Documentation shows that he was borderline hypoxic at time of discharge but reported that he was feeling better and wanted to go home. He did not fill any of the 4 prescriptions that he was given because he states they were too expensive. He states he occasionally has discomfort to the left upper chest with coughing but has not had any significant sputum production, fevers or vomiting. No medications used prior to arrival today. He states he only takes a stomach pill and blood pressure medication at home. Related Data Home Medications Medication Instructions Recorded Confirmed omeprazole 20 mg capsule,delayed 20 mg PO DAILY 10/22/23 12/25/23 release albuterol sulfate 2.5 mg/3 mL 2.5 mg inhalation Q6H PRN 11/02/23 12/26/23 (0.083 %) solution for nebulization shortness of breath or wheezing fluticasone 250 mcg-salmeterol 50 1 inh inhalation BID 12/25/23 12/25/23 mcg/dose blistr powdr for inhalation (Wixela Inhub) tiotropium bromide 2.5 2 inh inhalation BID 12/25/23 12/25/23 mcg/actuation mist for inhalation (Spiriva Respimat) Previous Rx's Medication Instructions Recorded albuterol sulfate 90 mcg/actuation 2 inh inhalation Q6H PRN shortness 12/17/23 aerosol inhaler of breath or wheezing #8.5 grams cefdinir 300 mg capsule 600 mg (2 x 300 mg) PO DAILY #20 12/27/23 caps losartan 100 mg tablet 100 mg PO DAILY #30 tabs 12/27/23 prednisone 10 mg tablet 50 mg (5 x 10 mg) PO DAILY #47 tabs 12/27/23 Allergies Allergy/AdvReac Type Severity Reaction Status Date / Time No Known Drug Allergies Allergy Verified 11/24/23 16:17 Review of Systems ROS Constitutional Denies: fever or chills Eyes Denies: change in vision Ears, nose, mouth, and throat Denies: throat pain or nasal congestion Cardiovascular Reports: chest pain Respiratory Reports: shortness of breath and cough Gastrointestinal Denies: nausea, vomiting or diarrhea Musculoskeletal Denies: back pain Integumentary/Breast Denies: rash Neurological Denies: headache Endocrine Denies: excessive urination [facility] Medical History (Updated 12/29/23 @ 16:45 by PALMIRA Pederson) Community acquired pneumonia ?J18.9 - Pneumonia, unspecified organism (ICD-10) Chronic obstructive pulmonary disease ?J44.9 - Chronic obstructive pulmonary disease, unspecified (ICD-10) Acute exacerbation of chronic obstructive pulmonary disease (COPD) ?J44.1 - Chronic obstructive pulmonary disease with (acute) exacerbation (ICD-10) RLL pneumonia ?J18.9 - Pneumonia, unspecified organism (ICD-10) COPD (chronic obstructive pulmonary disease) ?J44.9 - Chronic obstructive pulmonary disease, unspecified (ICD-10) Family History (Updated 12/25/23 @ 21:28 by Kym Ordaz) Mother Family history of cancer Family history of hypertension Father Family history of cancer Social History Within the past year, how often did you have a drink containing alcohol: 4 or more times a week Within the past year, how many standard drinks containing alcohol did you have on a typical day: 3 or 4 Within the past year, how often did you have six or more drinks on one occasion: less than monthly Total score: 3 Score interpretation: A score of 4 or more indicates drinking is likely to affect patient's safety. Smoking status: Current every day smoker Non-prescribed substance use: cannabis (any form) Previous occupational history: retired Highest level of school completed/degree received: high school graduate Are you now , , , , never or living with a partner: In a typical week, how many times do you talk on the telephone with family, friends, or neighbors: twice per week How often do you get together with friends or relatives: once per week How often do you attend restoration or taoist services: never Do you belong to any clubs or organizations such as restoration groups unions, [employer] or athletic groups, or school groups: no Total score: 1 Score interpretation: A score of less than or equal to 1 indicates the most socially isolated. Little interest or pleasure in doing things: several days Feeling down, depressed, or hopeless: not at all Feel stressed/tense/nervous/anxious/difficulty sleeping: not at all Do you think of yourself as: straight/heterosexual Gender Identity: male Exam Narrative Exam Narrative: Gen.: Awake, alert, in no distress; Sitting in a bedside chair because he finds the exam carts uncomfortable Head: Normocephalic, atraumatic ENT: Moist mucous membranes Respiratory: No respiratory distress, Faint expiratory wheezing in the right upper and middle lobes, Patient speaks in full sentences Cardio: Regular rate and rhythm Extremities: Moves extremities equally Psych: Normal mood and affect Neuro: No focal neuro deficit Skin: Warm, dry, intact Constitutional Vital Signs, click to edit/add: Last Vital Signs Temp 98 F 12/29/23 15:09 Pulse 84 12/29/23 15:53 Resp 22 12/29/23 15:09 BP 182/100 H 12/29/23 15:09 Pulse Ox 94 L 12/29/23 15:09 O2 Del Method Room Air 12/29/23 15:09 Course Vital Signs Vital signs: Vital Signs Temperature 98 F 12/29/23 15:09 Pulse Rate 84 12/29/23 15:09 Respiratory Rate 22 12/29/23 15:09 Blood Pressure 182/100 H 12/29/23 15:09 Pulse Oximetry 94 L 12/29/23 15:09 Oxygen Delivery Method Room Air 12/29/23 15:09 Temperature 98 F 12/29/23 15:09 Pulse Rate 84 12/29/23 15:53 Respiratory Rate 22 12/29/23 15:09 Blood Pressure 182/100 H 12/29/23 15:09 Pulse Oximetry 94 L 12/29/23 15:09 Oxygen Delivery Method Room Air 12/29/23 15:09 MDM - SOB/Dyspnea MDM Narrative Medical decision making narrative: Patient with no hypoxia, stable vitals in the emergency department. He has no EKG changes, no active complaints of chest pain. Chest x-ray is unremarkable, lab studies are unremarkable to improved. Patient was encouraged to fill his prescriptions for steroids and antibiotics. He will be treated for COPD exacerbation. Reevaluated by attending physician prior to discharge.Follow-up with PCP and return to the ER if symptoms change or worsen. Patient with heart rate in the 70s and pulse oximetry 95% on room air at time of discharge Medical Records Attestation: I reviewed the patient's medical records. Lab Data Attestation: I reviewed the patient's lab results. Labs: Lab Results 12/29/23 Range/Units 15:30 WBC 8.1 (4.0-11.0) 10^3/uL RBC 4.91 (4.70-6.10) 10^6/uL Hgb 14.7 (14.0-18.0) g/dL Hct 44.8 (42.0-54.0) % MCV 91.2 (80.0-94.0) fL MCH 29.9 (25.9-34.0) pg MCHC 32.8 (29.9-35.2) g/dL RDW 13.9 (11.0-15.0) % Plt Count 200 (150-450) 10^3/uL MPV 9.1 L (9.5-13.5) fL Neut % (Auto) 65.9 (43.0-75.0) % Lymph % (Auto) 23.6 (20.5-60.0) % [place] % (Auto) 8.6 (1.7-12.0) % Eos % (Auto) 1.7 (0.9-7.0) % Baso % (Auto) 0.1 L (0.2-2.0) % Neut # (Auto) 5.3 (1.4-6.5) 10^3/uL Lymph # (Auto) 1.9 (1.2-3.8) 10^3/uL [place] # (Auto) 0.7 (0.3-0.8) 10^3/uL Eos # (Auto) 0.1 (0.0-0.7) 10^3/uL Baso # (Auto) 0.0 (0.0-0.1) 10^3/uL Abs Immat Gran (auto) 0.01 (0.00-0.03) 10^3/uL Imm/Tot Granulo (auto) 0.1 (0.0-0.5) % PT 12.3 H (9.0-11.6) sec INR 1.17 APTT 27.5 (22.3-36.2) sec VBG pH 7.402 (7.330-7.430) VBG pCO2 48.7 (40.0-52.0) mmHg Sodium 141 (136-145) mmol/L Potassium 3.1 L (3.5-5.1) mmol/L Chloride 103 (98-107) mmol/L Carbon Dioxide 29.5 (21.0-32.0) mmol/L Anion Gap 11.6 BUN 10.0 (7.0-18.0) mg/dL Creatinine 0.74 (0.70-1.30) mg/dL Est GFR ( Amer) >60 (>=60) Est GFR (Non-Af Amer) >60 (>=60) BUN/Creatinine Ratio 13.5 Glucose 200 H (74-106) mg/dL Calcium 8.6 (8.5-10.1) mg/dL Total Bilirubin 0.5 (0.2-1.0) mg/dL AST 30 (15-37) U/L ALT 48 (16-63) U/L Alkaline Phosphatase 71 (46-116) U/L Troponin I High Sens 26.1 (4.0-76.1) pg/mL NT-Pro-B Natriuret Pep 277.0 (<=900.0) pg/mL Total Protein 6.2 L (6.4-8.2) g/dL Albumin 3.5 (3.4-5.0) g/dL Globulin 2.7 g/dL Albumin/Globulin Ratio 1.3 Imaging Data Chest x-ray: Attestation: I have reviewed the pertinent imaging results. Radiologist's impression: ITS Impressions Chest X-Ray 12/29/23 15:40 IMPRESSION: No acute infiltrate or evidence of cardiac decompensation. The overall appearance of the chest is essentially unchanged. Electronically authenticated by: DOMI ABBASI Date: 12/29/2023 15:57 ECG Data Attestation: I personally reviewed and interpreted this ECG as follows: (Normal sinus rhythm with occasional PVCs, no acute ST elevation. EKG reviewed by attending physician) Discharge Plan Discharge Chief Complaint: Shortness of Breath/Dyspnea Clinical Impression: COPD exacerbation Patient Disposition: Home, Self-Care Time of Disposition Decision: 16:45 Condition: Good Prescriptions / Home Meds: No Action omeprazole 20 mg capsule,delayed release(DR/EC) 20 mg PO DAILY albuterol sulfate 2.5 mg /3 mL (0.083 %) solution for nebulization 2.5 mg inhalation Q6H PRN (Reason: shortness of breath or wheezing) Spiriva Respimat 2.5 mcg/actuation mist 2 inh inhalation BID fluticasone propion-salmeterol [Wixela Inhub] 250-50 mcg/dose blister with device 1 inh inhalation BID prednisone 10 mg tablet 50 mg PO DAILY Qty: 47 0RF Rx Instructions: 5/day for 3 days. 4/day for 3 days, 3/day for 3 days, 2/day for 3 days, 1/day for 3 days, 1/2 /day for 4 days losartan 100 mg tablet 100 mg PO DAILY Qty: 30 11RF cefdinir 300 mg capsule 600 mg PO DAILY Qty: 20 0RF albuterol sulfate 90 mcg/actuation HFA aerosol inhaler 2 inh inhalation Q6H PRN (Reason: shortness of breath or wheezing) Qty: 8.5 2RF Instructions: COPD (Chronic Obstructive Pulmonary Disease) (ED) Stand Alone Forms: Portal Instructions Referrals: Physician,Non-Staff, MD [Primary Care Provider] - 1 week
--- NOTE | 2023-12-29 15:40 | XR_ITS ---
The [address] [address] Patient Name: CONSTANZA BARRETO MRN: [id number] date: 1955 Sex: M Assigned Patient Location: ER Current Patient Location: ER Accession/Order Number: [id number] Exam Date: 12/29/2023 15:35 Report Date: 12/29/2023 15:57 At the request of: RUDDY MCGHEE Procedure: XR chest 1V EXAM: XR chest 1V at 1521 hours HISTORY: Shortness of breath COMPARISON: 12/25/2023 TECHNIQUE: AP upright portable chest x-ray FINDINGS: The heart is not enlarged and the vasculature is not distended. No acute infiltrate, effusion or pneumothorax is identified. Old rib fractures are noted bilaterally. The osseous structures are grossly unchanged. XR/XR chest 1V IMPRESSION: No acute infiltrate or evidence of cardiac decompensation. The overall appearance of the chest is essentially unchanged. Electronically authenticated by: DOMI ABBASI Date: 12/29/2023 15:57
[2023-12-29] MEDS: ALBUTEROL SULFATE 2.5 MG/3 ML VIAL NEB IH (15:52)
[2023-12-29 15:53] VITALS: PULSE 84
[2023-12-29 16:00] LABS: PCO2 VBG 48.7 mmHg (40.0-52.0); pH VBG 7.402 (7.330-7.430)
[2023-12-29 16:03] LABS: Basophils Percent Auto 0.1 % (0.2-2.0); Eosinophils Absolute Auto 0.1 10^3/uL (0.0-0.7); Eosinophils Percent Auto 1.7 % (0.9-7.0); Hematocrit 44.8 % (42.0-54.0); Hemoglobin 14.7 g/dL (14.0-18.0); Immature Granulocytes Abs Auto 0.01 10^3/uL (0.00-0.03); Immature Granulocytes Pct Auto 0.1 % (0.0-0.5); Lymphocytes Absolute Auto 1.9 10^3/uL (1.2-3.8); Lymphocytes Percent Auto 23.6 % (20.5-60.0); Mean Corpuscular HGB Conc 32.8 g/dL (29.9-35.2); Mean Corpuscular Hemoglobin 29.9 pg (25.9-34.0); Mean Corpuscular Volume 91.2 fL (80.0-94.0); Mean Platelet Volume 9.1 fL (9.5-13.5); Monocytes Absolute Auto 0.7 10^3/uL (0.3-0.8); Monocytes Percent Auto 8.6 % (1.7-12.0); Neutrophils Absolute Auto 5.3 10^3/uL (1.4-6.5); Neutrophils Percent Auto 65.9 % (43.0-75.0); Platelet Count 200 10^3/uL (150-450); Red Blood Count 4.91 10^6/uL (4.70-6.10); Red Cell Distribution Width 13.9 % (11.0-15.0); White Blood Count 8.1 10^3/uL (4.0-11.0)
[2023-12-29 16:15] LABS: INR 1.17; Partial Thromboplastin Time 27.5 sec (22.3-36.2); Prothrombin Time 12.3 sec (9.0-11.6)
[2023-12-29 16:18] LABS: Alanine Aminotransferase 48 U/L (16-63); Albumin Globulin Ratio 1.3; Albumin Level 3.5 g/dL (3.4-5.0); Alkaline Phosphatase 71 U/L (46-116); Anion Gap 11.6; Aspartate Amino Transferase 30 U/L (15-37); BUN Creatinine Ratio 13.5; Bilirubin Total 0.5 mg/dL (0.2-1.0); Calcium 8.6 mg/dL (8.5-10.1); Carbon Dioxide 29.5 mmol/L (21.0-32.0); Chloride 103 mmol/L (98-107); Estimated GFR (African America >60 (>=60); Estimated GFR (Non-African Ame >60 (>=60); Globulin 2.7 g/dL; Glucose 200 mg/dL (74-106); Potassium 3.1 mmol/L (3.5-5.1); Sodium 141 mmol/L (136-145); Total Protein 6.2 g/dL (6.4-8.2)
[2023-12-29 16:26] LABS: Troponin I High Sensitivity 26.1 pg/mL (4.0-76.1)
[2023-12-29 16:46] VITALS: BP 178/92; PULSE 74; RESP 22; O2SAT 95
== END 2023-12-29 17:02 | disposition home or self-care (01) ==
PROVIDERS: Physician Assistant; Emergency Provider Emergency Medicine
DX: J44.1 Chronic obstructive pulmonary disease with (acute) exacerbation (principal); Z87.01 Personal history of pneumonia (recurrent); F17.210 Nicotine dependence, cigarettes, uncomplicated; F12.90 Cannabis use, unspecified, uncomplicated; Z79.899 Other long term (current) drug therapy
CPT/HCPCS: 36415; 71045; 80053; 82800; 83880; 84484; 85025; 85610; 85730; 93005; 94640; 99285

== ENCOUNTER 2024-01-05 18:09 | Emergency (ER) | payer MEDICARE, SELFPAY ==
[2024-01-05] VITALS (20 sets, daily range): BP systolic 168–213; BP diastolic 88–94; PULSE 63–98; RESP 18–29; O2SAT 86–100; BMI 25.0
--- NOTE | 2024-01-05 18:19 | XR_ITS ---
[place] [id number] Patient Name: CONSTANZA BARRETO MRN: [id number] date: 1955 Sex: M Assigned Patient Location: ER Current Patient Location: ED.MAIN Accession/Order Number: [id number] Exam Date: 01/05/2024 19:16 Report Date: 01/05/2024 19:55 At the request of: RUDDY MCGHEE Procedure: XR chest 1V EXAMINATION: XR chest 1V, , 01/05/2024 7:16 PM EST INDICATION: Dyspnea HISTORY: Ordering Provider Reason for Exam: Dyspnea Technologist Note: Additional: COMPARISON: XR chest 1V Study Date: 12/29/2023 TECHNIQUE: Chest x-ray: One view. FINDINGS: No pneumothorax, pleural effusion or focal airspace consolidation. Heart is normal in size. Bony thorax is unremarkable. XR/XR chest 1V IMPRESSION: No acute cardiopulmonary process. Electronically authenticated by: PARAG REYES Date: 01/05/2024 19:55
--- NOTE | 2024-01-05 18:19 | ECG_ITS ---
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
--- OUTSIDE RECORDS SUMMARY | 2024-01-05 18:26 | XMS_ITS | CCD ---
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 Garima Pulliam Basophils/100 WBC (Bld) 0.3 % Normal 0.2-2.0 [facility] Comment on above: Performed By: #### C BC ####[facility] Bgbbljoosk66[address] [place], [place] [address]IeAdalberto Pulliam EO # 0.3 103/ul Normal 0.0-0.7 [facility] Comment on above: Performed By: #### C BC ####[facility] Ctsxsikanq[address] [place] [id number]. Garima Pulliam Eosinophils/100 WBC (Bld) 2.8 % Normal 0.9-7.0 [facility] Comment on above: Performed By: #### C BC ####[facility] Axnmojbtqe6622 [place] [id number]. Garima Pulliam Erythrocyte distribution width (RBC) [Ratio] 13.4 % Normal 11.0-15.0 [facility] Comment on above: Performed By: #### C BC ####[facility] [address] [place], [place] [id number]. Garima Pulliam Hematocrit (Bld) [Volume fraction] 45.7 % Normal 42.0-54.0 [facility] Comment on above: Performed By: #### C BC ####[facility] Ewoqf[address]sxis[address] [place], [place] [address]Dr. Garima Pulliam Hemoglobin (Bld) [Mass/Vol] 15.2 g/dL Normal 14.0-18.0 [facility] Comment on above: Performed By: #### C BC ####[facility] Paohdp[address]xpa[address] [place], [place] [address]Dr. Garima Pulliam IG # 0.02 10e3/ul Normal 0.00-0.03 [facility] Comment on above: Performed By: #### C BC ####[facility] Zkzwnwdcps[address] [place], [place] [address]Dr. Garima Pulliam IG % 0.2 % Normal 0.0-0.5 [facility] Comment on above: Performed By: #### C BC ####[facility] Zedkmoimkw[address] [place], [place] [address]Dr. Garima Pulliam LYMPH # 2.1 103/ul Normal 1.2-3.8 [facility] Comment on above: Performed By: #### C BC ####[facility] Imckvotast[address] [place], [place] [address]Dr. Garima Pulliam Lymphocytes/100 WBC (Bld) 23.7 % Normal 20.5-60.0 [facility] Comment on above: Performed By: #### C BC ####[facility] Bonjrojfmo48[address] [place] [id number]. Garima Pulliam MANUAL DIFF REQ NO Normal [facility] Comment on above: Performed By: #### C BC ####[facility] Xdsibzzztn5946 [place] [id number]. Garima Pulliam MCH (RBC) [Entitic mass] 30.4 pg Normal 25.9-34.0 [facility] Comment on above: Performed By: #### C BC ####[facility] Lmwqmemzyi[address] [place], [place] [id number]. Garima Pulliam MCHC (RBC) [Mass/Vol] 33.3 g/dL Normal 29.9-35.2 [facility] Comment on above: Performed By: #### C BC ####[facility] Xmshghvwyi[address] [place], [place] [address]Dr. Garima Pulliam MCV (RBC) [Entitic vol] 91.4 fL Normal 80.0-94.0 [facility] Comment on above: Performed By: #### C BC ####[facility] Ekl[address]ms[address] [place], [place] [address]Dr. Garima Pulliam MONO # 0.7 103/ul Normal 0.3-0.8 [facility] Comment on above: Performed By: #### C BC ####[facility] [address]hrkavgcie[address] [place], [place] [address]Dr. Garima Heraclio Monocytes/100 WBC (Bld) 8.3 % Normal 1.7-12.0 [facility] Comment on above: Performed By: #### C BC ####[facility] Jmfptdxb[address] [place], [place] [address]Dr. Garima Pulliam NEUT # 5.8 103/ul Normal 1.4-6.5 [facility] Comment on above: Performed By: #### C BC ####[facility] Frbpbrqlsh[address] [place], [place] [address]Dr. Garima Pulliam Neutrophils/100 WBC (Bld) 64.7 % Normal 43.0-75.0 [facility] Comment on above: Performed By: #### C BC ####[facility] Mfvljhyptf9134 [place] [id number]. Garima Pulliam Platelet mean volume (Bld) [Entitic vol] 8.6 fL Critically low 9.5-13.5 [facility] Comment on above: Performed By: #### C BC ####[facility] [address]ynvuruimc38[address] [place] [address]Dr. Garima Pulliam PLT 230 103/ul Normal 150-450 [facility] Comment on above: Performed By: #### C BC ####[facility] Qazykmefcm0253 [place] [address]Dr. Garima Pulliam RBC 5.00 106/ul Normal 4.70-6.10 [facility] Comment on above: Performed By: #### C BC ####[facility] Goewiwrstk65[address] [place] [address]Dr. Garima Pulliam WBC 9.0 103/ul Normal 4.0-11.0 [facility] Comment on above: Performed By: #### C BC ####[facility] Jfsychylzl[address] [place], [place] [address]Dr. Garima Pulliam MAGNESIUMon 04-04-2023 Magnesium [Mass/Vol] 1.8 mg/dL Normal 1.8-2.4 [facility] Comment on above: Performed By: #### M G ####[facility] Eznbmhmujl[address] [place], [place] [address]Dr. Garima Pulliam PROF 14(COMP METB)on 023 Albumin [Mass/Vol] 3.8 g/dL Normal 3.4-5.0 [facility] Comment on above: Performed By: #### C MP ####[facility] Paqoaucnsk[address] [place] [address]Dr. Garima Pulliam Albumin/Globulin [Mass ratio] 1.2 {ratio} Normal [facility] Comment on above: Performed By: #### C MP ####[facility] Ijbirosvcm18[address] [place] [address]Dr. Garima Pulliam ALP [Catalytic activity/Vol] 84 U/L Normal 46-116 [facility] Comment on above: Performed By: #### C MP ####[facility] Tcoghqlnde89[address] [place] [id number]. Garima Pulliam ALT [Catalytic activity/Vol] 31 U/L Normal 16-63 [facility] Comment on above: Performed By: #### C MP ####[facility] Jiyfbnesag4560 [place] [id number]. Garima Pulliam Anion gap [Moles/Vol] 12.2 mmol/L Normal [facility] Comment on above: Performed By: #### C MP ####[facility] Dbybhawbtw0473 [place] [id number]. Garima Pulliam AST [Catalytic activity/Vol] 23 U/L Normal 15-37 [facility] Comment on above: Performed By: #### C MP ####[facility] Qwgfcd[address] [place], [place] [address]Dr. Garima Pulliam Bilirubin [Mass/Vol] 0.5 mg/dL Normal 0.2-1.0 [facility] Comment on above: Performed By: #### C MP ####[facility] Mkzuqqjbmv[address] [place], [place] [address]Dr. Garima Pulliam Calcium [Mass/Vol] 9.2 mg/dL Normal 8.5-10.1 [facility] Comment on above: Performed By: #### C MP ####[facility] Gfvjbubbrq[address] [place], [place] [address]Dr. Garima Pulliam Chloride [Moles/Vol] 103 mmol/L Normal 98-107 [facility] Comment on above: Performed By: #### C MP ####[facility] [address]pr[address] [place], [place] [address]Dr. Garima Pulliam CO2 [Moles/Vol] 28.5 mmol/L Normal 21.0-32.0 [facility] Comment on above: Performed By: #### C MP ####[facility] K[address]jxyuw[address] [place], [place] [address]Dr. Garima Pulliam Creatinine [Mass/Vol] 0.74 mg/dL Normal 0.70-1.30 [facility] Comment on above: Performed By: #### C MP ####[facility] Krvpgiuqwz0047 [place] [id number]. Garima Pulliam EGFR-AF MALAGASY >60 Normal >=60 [facility] Comment on above: Performed By: #### C MP ####[facility] Giyclaumtj0910 [place] [id number]. Garima Pulliam EGFR-NON AF MALAGASY >60 Normal >=60 [facility] Comment on above: Performed By: #### C MP ####[facility] Nayet[address] [place] [address]Dr. Garima Pulliam Globulin (S) [Mass/Vol] 3.1 g/dL Normal [facility] Comment on above: Performed By: #### C MP ####[facility] Dhtqzkujhq26[address] [place] [address]Dr. Garima Pulliam Glucose [Mass/Vol] 93 mg/dL Normal 74-106 [facility] Comment on above: Performed By: #### C MP ####[facility] Qxxwwefqck4131 [place] [address]Dr. Garima Pulliam Potassium [Moles/Vol] 3.7 mmol/L Normal 3.5-5.1 [facility] Comment on above: Performed By: #### C MP ####[facility] Pxbhllmezy8650 [place] [address]Dr. Garima Pulliam Protein [Mass/Vol] 6.9 g/dL Normal 6.4-8.2 [facility] Comment on above: Performed By: #### C MP ####[facility] Vrgkoylmsd6620 [place] [address]Dr. Garima Pulliam Sodium [Moles/Vol] 140 mmol/L Normal 136-145 [facility] Comment on above: Performed By: #### C MP ####[facility] Vwlaamctol0307 [place] [address]Dr. Garima Pulliam Urea nitrogen [Mass/Vol] 8.0 mg/dL Normal 7.0-18.0 [facility] Comment on above: Performed By: #### C MP ####[facility] Yzmnuyoizk1681 [place] [address]Dr. Garima Pulliam Urea nitrogen/Creatinine [Mass ratio] 10.8 mg/mg Normal [facility] Comment on above: Performed By: #### C MP ####[facility] Irlnguuwkz[address] [place] [address]Dr. Garima Pulliam AMMONIAon 03-30-2023 Ammonia (P) [Moles/Vol] 11 umol/L Normal 11-32 [facility] Comment on above: Performed By: #### A MM ####[facility] Tvod[address]vtyc[address] [place], [place] [address]Dr. Garima Pulliam CARDIAC NASH ADMITon 023 CK [Catalytic activity/Vol] 232 U/L Normal 39-308 [facility] Comment on above: Performed By: #### C DAVID, CMADM ####[facility] [address]pq[address]awlbtf2125 [place] [address]Dr. Chapisrenu Pulliam CK.MB [Mass/Vol] 4.83 ng/mL Critically high <=3.60 [facility] Comment on above: Performed By: #### C DAVID, CMADM ####[facility] [address]ytzfty[address] [place], [place] [address]Dr. Garima Pulliam HSTROP 10.5 pg/mL Normal 4.0-76.1 [facility] Comment on above: Result Comment: CUT- OFF POINTS HAVE BEEN ESTABLISHED BASED ON THE FOURTH UNIVERSAL DEFINITIONS OF MYOCARDIALINFARCTION. THE UPPER REFERENCE LIMIT (URL) OF TROPONIN, DEFINED THE 99TH PERCENTILE OFcTnI DISTRIBUTION IN A REFERENCE POPULATION, HAS BEEN CONFIRMED THE DECISION THRESHOLDFOR OK DIAGNOSIS. Performed By: #### C DAVID, CMADM ####[facility] I[address]ntjnjqv2124 [place] [address]Dr. Chapisrenu Pulliam DORIS 79 ng/mL Normal 16-96 [facility] Comment on above: Performed By: #### C DAVID, CMADM ####[facility] Owmonhgtsz[address] [place], [place] [address]Dr. Chapisrenu Pulliam CBC AUTO DIFFon 03-30-2023 BASO # 0.0 103/ul Normal 0.0-0.1 [facility] Comment on above: Performed By: #### C BC ####[facility] Kuukofupsj9973 [place] [id number]. Garima Pulliam Basophils/100 WBC (Bld) 0.1 % Critically low 0.2-2.0 [facility] Comment on above: Performed By: #### C BC ####[facility] Oksxioeysh[address] [place], [place] [address]Dr. Garima Pulliam EO # 0.3 103/ul Normal 0.0-0.7 [facility] Comment on above: Performed By: #### C BC ####[facility] Fcfyzdiafd[address] [place], [place] [address]Dr. Garima Pulliam Eosinophils/100 WBC (Bld) 3.3 % Normal 0.9-7.0 [facility] Comment on above: Performed By: #### C BC ####[facility] Wzsspgqorv[address] [place], [place] [address]Dr. Garima Pulliam Erythrocyte distribution width (RBC) [Ratio] 13.5 % Normal 11.0-15.0 [facility] Comment on above: Performed By: #### C BC ####[facility] Salpdoduht[address] [place], [place] [address]Dr. Garima Pulliam Hematocrit (Bld) [Volume fraction] 42.9 % Normal 42.0-54.0 [facility] Comment on above: Performed By: #### C BC ####[facility] Yplvhmosgx[address] [place], [place] [address]Dr. Garima Pulliam Hemoglobin (Bld) [Mass/Vol] 13.9 g/dL Critically low 14.0-18.0 [facility] Comment on above: Performed By: #### C BC ####[facility] Hzwvozysui[address] [place], [place] [address]Dr. Garima Pulliam IG # 0.01 10e3/ul Normal 0.00-0.03 [facility] Comment on above: Performed By: #### C BC ####[facility] Yqvhzfzkrk[address] [place], [place] [address]Dr. Garima Pulliam IG % 0.1 % Normal 0.0-0.5 [facility] Comment on above: Performed By: #### C BC ####[facility] Coxmjdxaki6226 [place] [id number]. Garima Pulliam LYMPH # 1.7 103/ul Normal 1.2-3.8 [facility] Comment on above: Performed By: #### C BC ####[facility] Vdzrzjkjin9306 [place] [id number]. Garima Pulliam Lymphocytes/100 WBC (Bld) 22.8 % Normal 20.5-60.0 [facility] Comment on above: Performed By: #### C BC ####[facility] Oiczahxotl0351 [place] [id number]. Garima Pulliam MANUAL DIFF REQ NO Normal [facility] Comment on above: Performed By: #### C BC ####[facility] Oddgenpgpf5202 [place] [id number]. Garima Pulliam MCH (RBC) [Entitic mass] 30.5 pg Normal 25.9-34.0 [facility] Comment on above: Performed By: #### C BC ####[facility] Ghwnxsywkg9598 [place] [id number]. Garima Pulliam MCHC (RBC) [Mass/Vol] 32.4 g/dL Normal 29.9-35.2 [facility] Comment on above: Performed By: #### C BC ####[facility] Ryfyooqjnw3201 [place] [id number]. Garima Pulliam MCV (RBC) [Entitic vol] 94.1 fL Critically high 80.0-94.0 [facility] Comment on above: Performed By: #### C BC ####[facility] Oxtftkpiso8194 [place] [id number]. Garima Pulliam MONO # 0.7 103/ul Normal 0.3-0.8 [facility] Comment on above: Performed By: #### C BC ####[facility] Omzbmrdtaj1322 [place] [id number]. Garima Pulliam Monocytes/100 WBC (Bld) 8.6 % Normal 1.7-12.0 [facility] Comment on above: Performed By: #### C BC ####[facility] Bkqwrevcus9960 [place] [id number]. Garima Pulliam NEUT # 4.9 103/ul Normal 1.4-6.5 [facility] Comment on above: Performed By: #### C BC ####[facility] Qjvsipjihf9154 [place] [id number]. Garima Pulliam Neutrophils/100 WBC (Bld) 65.1 % Normal 43.0-75.0 [facility] Comment on above: Performed By: #### C BC ####[facility] Koxstmnjgp2130 [place] [id number]. Garima Pulliam Platelet mean volume (Bld) [Entitic vol] 8.5 fL Critically low 9.5-13.5 [facility] Comment on above: Performed By: #### C BC ####[facility] Ry[address]xtsihm[address] [place] [address]Dr. Garima Pulliam PLT 219 103/ul Normal 150-450 [facility] Comment on above: Performed By: #### C BC ####[facility] Xyjkgkfkzn2432 [place] [id number]. Garmia Pulliam RBC 4.56 106/ul Critically low 4.70-6.10 [facility] Comment on above: Performed By: #### C BC ####[facility] Xzerhfmtkv5064 [place] [id number]. Garima Pulliam WBC 7.6 103/ul Normal 4.0-11.0 [facility] Comment on above: Performed By: #### C BC ####[facility] Fryrpqjjgr2087 [place] [id number]. Garima Pulliam LACTATE/LACTIC ACIDon 2022 Lactate [Moles/Vol] 1.2 mmol/L Normal 0.4-2.0 [facility] Comment on above: Performed By: #### L ACT ####[facility] Rsaeyljbij2819 [place] [id number]. Garima Pulliam MAGNESIUMon 03-30-2023 Magnesium [Mass/Vol] 1.8 mg/dL Normal 1.8-2.4 [facility] Comment on above: Performed By: #### M G ####[facility] [address]ebzykdey[address] [place] [address]Dr. Garima Pulliam PROF 14(COMP METB)on 023 Albumin [Mass/Vol] 3.5 g/dL Normal 3.4-5.0 [facility] Comment on above: Performed By: #### C DAVID, NANCY ####[facility] Xxscwatsfu0204 [place] [address]Dr. Garima Pulliam Albumin/Globulin [Mass ratio] 1.2 {ratio} Normal [facility] Comment on above: Performed By: #### C NANCY HERNANDEZ ####[facility] F[address]qelr[address] [place], [place] [address]Dr. Garima Pulliam ALP [Catalytic activity/Vol] 85 U/L Normal 46-116 [facility] Comment on above: Performed By: #### C DAVID, NANCY ####[facility] Sefizgrumy[address] [place], [place] [address]Dr. Garima Pulliam ALT [Catalytic activity/Vol] 29 U/L Normal 16-63 [facility] Comment on above: Performed By: #### C NANCY HERNANDEZ ####[facility] Bhwkxmdytb6614 [place] [address]Dr. Garima Pulliam Anion gap [Moles/Vol] 8.0 mmol/L Normal [facility] Comment on above: Performed By: #### C DAVID, NANCY ####[facility] Fofpwkygve[address] [place], [place] [address]Dr. Garima Pulliam AST [Catalytic activity/Vol] 18 U/L Normal 15-37 [facility] Comment on above: Performed By: #### C DAVID, NANCY ####[facility] Odniibhypg[address] [place], [place] [address]Dr. Garima Pulliam Bilirubin [Mass/Vol] 0.4 mg/dL Normal 0.2-1.0 [facility] Comment on above: Performed By: #### C NANCY HERNANDEZ ####[facility] Nhtkwonxoe7196 [place] [address]Dr. Garima Pulliam Calcium [Mass/Vol] 8.8 mg/dL Normal 8.5-10.1 [facility] Comment on above: Performed By: #### C DAVID, NANCY ####[facility] Nqruqbmxqq4425 [place] [id number]. Garima Pulliam Chloride [Moles/Vol] 108 mmol/L Critically high 98-107 [facility] Comment on above: Performed By: #### C DAVID, NANCY ####[facility] Xdbcbsbqub9724 [place] [id number]. Garima Pulliam CO2 [Moles/Vol] 29.6 mmol/L Normal 21.0-32.0 [facility] Comment on above: Performed By: #### C DAVID, NANCY ####[facility] [address]wynmq[address]oy[address] [place], [place] [address]Dr. Garima Pulliam Creatinine [Mass/Vol] 0.77 mg/dL Normal 0.70-1.30 [facility] Comment on above: Performed By: #### C DAVID, NANCY ####[facility] Oczcpbfzhv32[address] [place] [address]Dr. Garima Pulliam EGFR-AF MALAGASY >60 Normal >=60 [facility] Comment on above: Performed By: #### C DAVID, NANCY ####[facility] Qyhfbqlbtr4253 [place] [id number]. Garima Pulliam EGFR-NON AF MALAGASY >60 Normal >=60 [facility] Comment on above: Performed By: #### C DAVID, NANCY ####[facility] Boeqpaxnkp3170 [place] [id number]. Garima Pulliam Globulin (S) [Mass/Vol] 2.8 g/dL Normal [facility] Comment on above: Performed By: #### C DAVID, NANCY ####[facility] Tavyselyex[address] [place] [address]Dr. Garima Pulliam Glucose [Mass/Vol] 207 mg/dL Critically high 74-106 [facility] Comment on above: Performed By: #### C DAVID, NANCY ####[facility] Rdhemakiki[address]65 [place] [address]Dr. Garima Pulliam Potassium [Moles/Vol] 4.6 mmol/L Normal 3.5-5.1 [facility] Comment on above: Performed By: #### C DAVID, CMADM ####[facility] Yhhjkdxcgx1934 [place] [address]Dr. Garima Pulliam Protein [Mass/Vol] 6.3 g/dL Critically low 6.4-8.2 [facility] Comment on above: Performed By: #### C DAVID, CMADM ####[facility] Krnjjhbpje9371 [place] [address]Dr. Garima Pulliam Sodium [Moles/Vol] 141 mmol/L Normal 136-145 [facility] Comment on above: Performed By: #### C DAVID, CMADM ####[facility] Olrnvuorqs2984 [place] [address]Dr. Garima Pulliam Urea nitrogen [Mass/Vol] 9.0 mg/dL Normal 7.0-18.0 [facility] Comment on above: Performed By: #### C DAVID, CMADM ####[facility] Tfeoiypnqh3145 [place] [address]Dr. Garima Pulliam Urea nitrogen/Creatinine [Mass ratio] 11.7 mg/mg Normal [facility] Comment on above: Performed By: #### C DAVID, CMADM ####[facility] Kjwgmggolq7408 [place] [address]Dr. Garima Pulliam XR CHEST 1 Von 03-30-2023 XR CHEST 1 V Normal [facility] BNPon 03-27-2023 Natriuretic peptide B (Bld) [Mass/Vol] 251.0 pg/mL Normal <=900.0 [facility] Comment on above: Performed By: #### C MP, BNP, LIPID ####[facility] [address]umjlr[address] [place], [place] [address]Dr. Garima Heraclio GLYCOHEMOGLOBIN A1Con 2022 ADA RECOMMENDATION SEE BELOW Normal [facility] Comment on above: Result Comment: ADA RECOMMENDED LIMIT 4.0 - 6.0 ADA THERAPEUTIC TARGET < 7.0 ACTION SUGGESTED > 7.0 Performed By: #### A 1C ####[facility] Xmblwvajnx7415 [place] [address]Dr. Garima Pulliam Glucose [Mass/Vol] 180 mg/dL Normal [facility] Comment on above: Performed By: #### A 1C ####[facility] [address]hmhhmhwk[address] [place], [place] [address]Dr. Garima Pulliam HbA1c (Bld) [Mass fraction] 7.9 % Critically high 4.5-6.2 [facility] Comment on above: Performed By: #### A 1C ####[facility] Evoxchkmbr[address] [place], [place] [address]Dr. Garima Pulliam HEMOGRAM AND PLATELon 2022 Hematocrit (Bld) [Volume fraction] 45.7 % Normal 42.0-54.0 [facility] Comment on above: Performed By: #### H H ####[facility] Hgnhogjxmn[address] [place], [place] [address]Dr. Garima Pulliam Hemoglobin (Bld) [Mass/Vol] 15.1 g/dL Normal 14.0-18.0 [facility] Comment on above: Performed By: #### H H ####[facility] [address]odrvmvhjs[address] [place], [place] [address]Dr. Garima Pulliam MCH (RBC) [Entitic mass] 30.0 pg Normal 25.9-34.0 [facility] Comment on above: Performed By: #### H H ####[facility] Gevtijmcyq[address] [place], [place] [address]Dr. Garima Pulliam MCHC (RBC) [Mass/Vol] 33.0 g/dL Normal 29.9-35.2 [facility] Comment on above: Performed By: #### H H ####[facility] Ugtrqkoope[address] [place], [place] [address]Dr. Garima Pulliam MCV (RBC) [Entitic vol] 90.7 fL Normal 80.0-94.0 [facility] Comment on above: Performed By: #### H H ####[facility] Shfbimojcy[address] [place], [place] [address]Dr. Garima Pulliam PLT 222 103/ul Normal 150-450 [facility] Comment on above: Performed By: #### H H ####[facility] Qkpszjtgkg8809 [place] [id number]. Garima Pulliam RBC 5.04 106/ul Normal 4.70-6.10 [facility] Comment on above: Performed By: #### H H ####[facility] Bxwexyindf6352 [place] [id number]. Garima Pulliam WBC 8.7 103/ul Normal 4.0-11.0 [facility] Comment on above: Performed By: #### H H ####[facility] Rydnxsutbp5375 [place] [id number]. Garima Pulliam LIPID PROFILEon 03-27-2023 CHOL-HDL RATIO NORM SEE BELOW Normal [facility] Comment on above: Result Comment: 3.3 - 4.4 LOW RISK 4.4 - 7.1 AVERAGE RISK 7.1 - 11.0 MODERATE RISK >11.0 HIGH RISK Performed By: #### C MP, BNP, LIPID ####[facility] Shduhrrhkg3254 [place] [id number]. Garima Pulliam Cholesterol [Mass/Vol] 113 mg/dL Normal <=200 [facility] Comment on above: Performed By: #### C MP, BNP, LIPID ####[facility] Greraxprfi2430 [place] [id number]. Garima Pulliam Cholesterol in HDL [Mass/Vol] 51 mg/dL Normal 40-60 [facility] Comment on above: Performed By: #### C MP, BNP, LIPID ####[facility] [address]ms[address] [place] [id number]. Garima Pulliam Cholesterol in LDL [Mass/Vol] 49.8 mg/dL Normal [facility] Comment on above: Performed By: #### C MP, BNP, LIPID ####[facility] Hdjanutwiv[address] [place] [id number]. Garima Pulliam Cholesterol.total/Cho lesterol in HDL [Mass ratio] 2.2 {ratio} Normal [facility] Comment on above: Performed By: #### C MP, BNP, LIPID ####[facility] [address] [place] [address]Dr. Garima Pulliam HDL NORMAL > or = 60 mg/dl - LOW CARDIOVASCULAR RISK <40 mg/dl - HIGH CARDIOVASCULAR RISK Normal [facility] Comment on above: Performed By: #### C MP, BNP, LIPID ####[facility] [address]vmqfzckjp[address] [place] [address]Dr. Garima Pulliam LDL CALC NORMAL SEE BELOW Normal [facility] Comment on above: Result Comment: <100 mg/dl OPTIMAL 100 - 129 mg/dl NEAR OR ABOVE OPTIMAL 130 - 159 mg/dl BORDERLINE HIGH 160 - 189 mg/dl HIGH >190 mg/dl VERY HIGH Performed By: #### C MP, BNP, LIPID ####[facility] [address] [place] [address]Dr. Garima Pulliam Triglyceride [Mass/Vol] 61 mg/dL Normal <=150 [facility] Comment on above: Performed By: #### C MP, BNP, LIPID ####[facility] Ajjyptuhzt[address] [place] [address]Dr. Garima Pulliam VLDL CALC 12.2 mg/dL Normal [facility] Comment on above: Performed By: #### C MP, BNP, LIPID ####[facility] Tplcuaepha[address] [place] [address]Dr. Garima Pulliam PROF 14(COMP METB)on 023 Albumin [Mass/Vol] 3.5 g/dL Normal 3.4-5.0 [facility] Comment on above: Performed By: #### C MP, BNP, LIPID ####[facility] Bhlbqmsngc[address] [place] [address]Dr. Garima Pulliam Albumin/Globulin [Mass ratio] 1.2 {ratio} Normal [facility] Comment on above: Performed By: #### C MP, BNP, LIPID ####[facility] Rwxtrzkyqd[address] [place] [address]Dr. Garima Pulliam ALP [Catalytic activity/Vol] 82 U/L Normal 46-116 [facility] Comment on above: Performed By: #### C MP, BNP, LIPID ####[facility] Hzivqfuvnz1853 [place] [id number]. Garima Pulliam ALT [Catalytic activity/Vol] 33 U/L Normal 16-63 [facility] Comment on above: Performed By: #### C MP, BNP, LIPID ####[facility] Dhhlhlpekj58[address] [place] [id number]. Garima Pulliam Anion gap [Moles/Vol] 9.9 mmol/L Normal [facility] Comment on above: Performed By: #### C MP, BNP, LIPID ####[facility] Bxfocatizq[address] [place] [address]Dr. Garima Pulliam AST [Catalytic activity/Vol] 24 U/L Normal 15-37 [facility] Comment on above: Performed By: #### C MP, BNP, LIPID ####[facility] Uiynqowvsw[address] [place] [address]Dr. Garima Pulliam Bilirubin [Mass/Vol] 0.6 mg/dL Normal 0.2-1.0 [facility] Comment on above: Performed By: #### C MP, BNP, LIPID ####[facility] Sdgvygnyjd6[address] [place] [address]Dr. Garima Pulliam Calcium [Mass/Vol] 9.2 mg/dL Normal 8.5-10.1 [facility] Comment on above: Performed By: #### C MP, BNP, LIPID ####[facility] Gagzlwseqi[address] [place] [address]Dr. Garima Pulliam Chloride [Moles/Vol] 106 mmol/L Normal 98-107 [facility] Comment on above: Performed By: #### C MP, BNP, LIPID ####[facility] Bfyqtwqvha18[address] [place] [address]Dr. Garima Pulliam CO2 [Moles/Vol] 32.3 mmol/L Critically high 21.0-32.0 [facility] Comment on above: Performed By: #### C MP, BNP, LIPID ####[facility] Vbtkahejza54[address] [place] [address]Dr. Garima Pulliam Creatinine [Mass/Vol] 0.70 mg/dL Normal 0.70-1.30 [facility] Comment on above: Performed By: #### C MP, BNP, LIPID ####[facility] Gvphwzhxyf30[address] [place] [address]Dr. Garima Heraclio EGFR-AF MALAGASY >60 Normal >=60 [facility] Comment on above: Performed By: #### C MP, BNP, LIPID ####[facility] Znssnvayxz8814 [place] [address]Dr. Garima Pulliam EGFR-NON AF MALAGASY >60 Normal >=60 [facility] Comment on above: Performed By: #### C MP, BNP, LIPID ####[facility] Jjczjbrwtt7173 [place] [address]Dr. Garima Pulliam Globulin (S) [Mass/Vol] 2.9 g/dL Normal [facility] Comment on above: Performed By: #### C MP, BNP, LIPID ####[facility] Afsyfxtkii[address] [place], [place] [address]Dr. Garima Pulliam Glucose [Mass/Vol] 111 mg/dL Critically high 74-106 [facility] Comment on above: Performed By: #### C MP, BNP, LIPID ####[facility] [address]jytcxzyjz[address] [place], [place] [address]Dr. Garima Pulliam Potassium [Moles/Vol] 4.2 mmol/L Normal 3.5-5.1 [facility] Comment on above: Performed By: #### C MP, BNP, LIPID ####[facility] Ntwtxyvoeu4124 [place] [address]Dr. Garima Pulliam Protein [Mass/Vol] 6.4 g/dL Normal 6.4-8.2 [facility] Comment on above: Performed By: #### C MP, BNP, LIPID ####[facility] Rmtharycnm[address] [place], [place] [address]Dr. Garima Pulliam Sodium [Moles/Vol] 144 mmol/L Normal 136-145 [facility] Comment on above: Performed By: #### C MP, BNP, LIPID ####[facility] Wyaesmrwvy[address] [place], [place] [address]Dr. Garima Pulliam Urea nitrogen [Mass/Vol] 7.0 mg/dL Normal 7.0-18.0 [facility] Comment on above: Performed By: #### C MP, BNP, LIPID ####[facility] Vcixievssl[address] [place], [place] [address]Dr. Garima Pulliam Urea nitrogen/Creatinine [Mass ratio] 10.0 mg/mg Normal [facility] Comment on above: Performed By: #### C MP, BNP, LIPID ####[facility] Rnyovirazw[address] [place], [place] [address]Dr. Garima Pulliam BNPon 03-22-2023 Natriuretic peptide B (Bld) [Mass/Vol] 103.0 pg/mL Normal <=900.0 [facility] Comment on above: Performed By: #### B ORACLE BRM DEVELOPER, BMP ####[facility] Ogxdvbhmvn[address] [place], [place] [address]Dr. Garima Pulliam CBC AUTO DIFFon 03-22-2023 BASO # 0.0 103/ul Normal 0.0-0.1 [facility] Comment on above: Performed By: #### C BC ####[facility] Mparniautv[address] [place], [place] [address]Dr. Garima Pulliam Basophils/100 WBC (Bld) 0.3 % Normal 0.2-2.0 [facility] Comment on above: Performed By: #### C BC ####[facility] Lbugpvpdxa[address] [place], [place] [address]Dr. Garima Pullima EO # 0.2 103/ul Normal 0.0-0.7 [facility] Comment on above: Performed By: #### C BC ####[facility] Mearlnwxcv[address] [place], [place] [address]Dr. Garima Pulliam Eosinophils/100 WBC (Bld) 2.2 % Normal 0.9-7.0 [facility] Comment on above: Performed By: #### C BC ####[facility] Wdkuaexxom[address] [place], [place] [address]Dr. Garima Pulliam Erythrocyte distribution width (RBC) [Ratio] 13.2 % Normal 11.0-15.0 [facility] Comment on above: Performed By: #### C BC ####[facility] Okzpjojabk65[address] [place] [address]Dr. Garima Pulliam Hematocrit (Bld) [Volume fraction] 43.4 % Normal 42.0-54.0 [facility] Comment on above: Performed By: #### C BC ####[facility] Cvzetyiuui90[address] [place] [address]Dr. Garima Hercalio Hemoglobin (Bld) [Mass/Vol] 14.3 g/dL Normal 14.0-18.0 [facility] Comment on above: Performed By: #### C BC ####[facility] Grjmzdbozl[address] [place], [place] [address]Dr. Chapisrenu Pulliam IG # 0.02 10e3/ul Normal 0.00-0.03 [facility] Comment on above: Performed By: #### C BC ####[facility] Fwulkgjwgj[address] [place], [place] [address]Dr. Garima Pulliam IG % 0.3 % Normal 0.0-0.5 [facility] Comment on above: Performed By: #### C BC ####[facility] Mrsqblcdkf[address] [place], [place] [address]Dr. Chapisrenu Pulliam LYMPH # 2.0 103/ul Normal 1.2-3.8 [facility] Comment on above: Performed By: #### C BC ####[facility] Hbfyhypcbs[address] [place], [place] [address]Dr. Garima Pulliam Lymphocytes/100 WBC (Bld) 24.8 % Normal 20.5-60.0 [facility] Comment on above: Performed By: #### C BC ####[facility] Rwbqinvwpz[address] [place], [place] [address]Dr. Garima Pulliam MANUAL DIFF REQ NO Normal [facility] Comment on above: Performed By: #### C BC ####[facility] Lkgknljpbu[address] [place], [place] [address]Dr. Garima Pulliam MCH (RBC) [Entitic mass] 30.0 pg Normal 25.9-34.0 [facility] Comment on above: Performed By: #### C BC ####[facility] Yexmnrgwld[address] [place] [id number]. Garima Heraclio MCHC (RBC) [Mass/Vol] 32.9 g/dL Normal 29.9-35.2 [facility] Comment on above: Performed By: #### C BC ####[facility] V[address]bsxtzuzp[address] [place] [id number]. Garima Pulliam MCV (RBC) [Entitic vol] 91.0 fL Normal 80.0-94.0 [facility] Comment on above: Performed By: #### C BC ####[facility] [address]ogsfsfha[address] [place], [place] [address]Dr. Garima Pulliam MONO # 0.8 103/ul Normal 0.3-0.8 [facility] Comment on above: Performed By: #### C BC ####[facility] Ccxspeyelx13[address] [place], [place] [address]Dr. Garima Pulliam Monocytes/100 WBC (Bld) 9.7 % Normal 1.7-12.0 [facility] Comment on above: Performed By: #### C BC ####[facility] Ajdgkqpnfx[address] [place], [place] [address]Dr. Garima Pulliam NEUT # 4.9 103/ul Normal 1.4-6.5 [facility] Comment on above: Performed By: #### C BC ####[facility] Vpcbhmbgxr[address] [place], [place] [address]Dr. Garima Pulliam Neutrophils/100 WBC (Bld) 62.7 % Normal 43.0-75.0 [facility] Comment on above: Performed By: #### C BC ####[facility] Zzonhwxexj[address] [place], [place] [address]Dr. Garima Pulliam Platelet mean volume (Bld) [Entitic vol] 8.8 fL Critically low 9.5-13.5 [facility] Comment on above: Performed By: #### C BC ####[facility] Rencekpdnn[address] [place], [place] [address]Dr. Garima Pulliam PLT 198 103/ul Normal 150-450 [facility] Comment on above: Performed By: #### C BC ####[facility] Wotaaqcixr52[address] [place] [id number]. Chapisrenu Pulliam RBC 4.77 106/ul Normal 4.70-6.10 [facility] Comment on above: Performed By: #### C BC ####[facility] Pzsklkuecg8137 [place] [id number]. Garima Pulliam WBC 7.9 103/ul Normal 4.0-11.0 [facility] Comment on above: Performed By: #### C BC ####[facility] Gndgtgxvxz0341 [place] [id number]. Garima Pulliam D-DIMERon 03-22-2023 D-DIMER 0.85 mg/L FEU Critically high <=0.59 [facility] Comment on above: Performed By: #### D DIM ####[facility] Yvcxlqqzyh70[address] [place] [address]Dr. Garima Pulliam D-DIMER COMMENTS SEE BELOW Normal [facility] Comment on above: Result Comment: Incr eases [...] generalized hospitalization. Performed By: #### D DIM ####[facility] Hqmgjclsbh6[address] [place] [address]Dr. Garima Pulliam PROF CHEM 8 (BAS METB)on Anion gap [Moles/Vol] 6.9 mmol/L Normal [facility] Comment on above: Performed By: #### B ORACLE BRM DEVELOPER, BMP ####[facility] Dwbupkvuho0124 [place] [address]Dr. Garima Pulliam Calcium [Mass/Vol] 8.9 mg/dL Normal 8.5-10.1 [facility] Comment on above: Performed By: #### B ORACLE BRM DEVELOPER, BMP ####[facility] Jggfzjqnch4973 [place] [id number]. Garima Pulliam Chloride [Moles/Vol] 101 mmol/L Normal 98-107 [facility] Comment on above: Performed By: #### B ORACLE BRM DEVELOPER, BMP ####[facility] Nzailpkazm6903 [place] [address]Dr. Garima Pulliam CO2 [Moles/Vol] 30.7 mmol/L Normal 21.0-32.0 [facility] Comment on above: Performed By: #### B ORACLE BRM DEVELOPER, BMP ####[facility] Jkxjrhlbuy[address] [place], [place] [address]Dr. Garima Pulliam Creatinine [Mass/Vol] 0.82 mg/dL Normal 0.70-1.30 [facility] Comment on above: Performed By: #### B ORACLE BRM DEVELOPER, BMP ####[facility] Scbhiwqfwt[address] [place], [place] [address]Dr. Garima Pulliam EGFR-AF MALAGASY >60 Normal >=60 [facility] Comment on above: Performed By: #### B ORACLE BRM DEVELOPER, BMP ####[facility] Nmgoqgaleg[address] [place], [place] [address]Dr. Garima Pulliam EGFR-NON AF MALAGASY >60 Normal >=60 [facility] Comment on above: Performed By: #### B ORACLE BRM DEVELOPER, BMP ####[facility] Ejtqrohgfq[address] [place], [place] [address]Dr. Garima Pulliam Glucose [Mass/Vol] 339 mg/dL Critically high 74-106 [facility] Comment on above: Performed By: #### B ORACLE BRM DEVELOPER, BMP ####[facility] Npxtaatrfn[address] [place], [place] [address]Dr. Garima Pulliam Potassium [Moles/Vol] 3.6 mmol/L Normal 3.5-5.1 [facility] Comment on above: Performed By: #### B ORACLE BRM DEVELOPER, BMP ####[facility] Rhvglmmpou[address] [place], [place] [address]Dr. Garima Pulliam Sodium [Moles/Vol] 135 mmol/L Critically low 136-145 [facility] Comment on above: Performed By: #### B ORACLE BRM DEVELOPER, BMP ####[facility] Hlpvlxenap[address] [place] [id number]. Garima Pulliam Urea nitrogen [Mass/Vol] 11.0 mg/dL Normal 7.0-18.0 [facility] Comment on above: Performed By: #### B ORACLE BRM DEVELOPER, BMP ####[facility] V[address]ys[address] [place], [place] [id number]. Garima Pulliam Urea nitrogen/Creatinine [Mass ratio] 13.4 mg/mg Normal [facility] Comment on above: Performed By: #### B ORACLE BRM DEVELOPER, BMP ####[facility] Mgxooqqcze85[address] [place], [place] [address]Dr. Garima Pulliam US VERONICA DOP LEG BILon 023 US VERONICA DOP LEG BENOIT Normal [facility] BNPon 03-18-2023 Natriuretic peptide B (Bld) [Mass/Vol] 226.0 pg/mL Normal <=900.0 [facility] Comment on above: Performed By: #### B ORACLE BRM DEVELOPER, BMP ####[facility] Wewybtmfzz[address] [place], [place] [address]Dr. Garima Pulliam CBC AUTO DIFFon 03-18-2023 BASO # 0.0 103/ul Normal 0.0-0.1 [facility] Comment on above: Performed By: #### C BC ####[facility] Kfacgtynoq[address] [place], [place] [address]Dr. Garima Heraclio Basophils/100 WBC (Bld) 0.2 % Normal 0.2-2.0 [facility] Comment on above: Performed By: #### C BC ####[facility] Alkwfsrkhs[address] [place], [place] [address]Dr. Garima Pulliam EO # 0.3 103/ul Normal 0.0-0.7 [facility] Comment on above: Performed By: #### C BC ####[facility] Asjsigyvre[address] [place], [place] [address]Dr. Garima Heraclio Eosinophils/100 WBC (Bld) 2.5 % Normal 0.9-7.0 [facility] Comment on above: Performed By: #### C BC ####[facility] Xpllzouqlc[address] [place], [place] [address]Dr. Garima Pulliam Erythrocyte distribution width (RBC) [Ratio] 13.2 % Normal 11.0-15.0 [facility] Comment on above: Performed By: #### C BC ####[facility] Vokxgtjgxz364[address] [place] [address]Dr. Garima Pulliam Hematocrit (Bld) [Volume fraction] 45.8 % Normal 42.0-54.0 [facility] Comment on above: Performed By: #### C BC ####[facility] [address]dwubxtdh[address] [place] [address]Dr. Garima Pulliam Hemoglobin (Bld) [Mass/Vol] 15.3 g/dL Normal 14.0-18.0 [facility] Comment on above: Performed By: #### C BC ####[facility] V[address]bfloxqy[address] [place], [place] [address]Dr. Chapisrenu Pulliam IG # 0.02 10e3/ul Normal 0.00-0.03 [facility] Comment on above: Performed By: #### C BC ####[facility] Frpqugetzr[address] [place], [place] [address]Dr. Garima Pulliam IG % 0.2 % Normal 0.0-0.5 [facility] Comment on above: Performed By: #### C BC ####[facility] W[address]zfmdcdg[address] [place], [place] [address]Dr. Garima Heraclio LYMPH # 1.8 103/ul Normal 1.2-3.8 [facility] Comment on above: Performed By: #### C BC ####[facility] S[address]vnvbpgr[address] [place], [place] [address]Dr. Garima Heraclio Lymphocytes/100 WBC (Bld) 18.3 % Critically low 20.5-60.0 [facility] Comment on above: Performed By: #### C BC ####[facility] Ixwyplsens[address] [place], [place] [address]Dr. Chapisrenu Pulliam MANUAL DIFF REQ NO Normal [facility] Comment on above: Performed By: #### C BC ####[facility] Mrykobdmdi[address] [place], [place] [address]Dr. Yirenu Pulliam MCH (RBC) [Entitic mass] 30.5 pg Normal 25.9-34.0 [facility] Comment on above: Performed By: #### C BC ####[facility] Qtcpkuedlr3565 [place] [id number]. Garima Pulliam MCHC (RBC) [Mass/Vol] 33.4 g/dL Normal 29.9-35.2 [facility] Comment on above: Performed By: #### C BC ####[facility] Goqsypxqul9535 [place] [id number]. Garima Pulliam MCV (RBC) [Entitic vol] 91.2 fL Normal 80.0-94.0 [facility] Comment on above: Performed By: #### C BC ####[facility] Acohcrxkol[address] [place], [place] [address]DrAdalberto Garima Heraclio MONO # 0.8 103/ul Normal 0.3-0.8 [facility] Comment on above: Performed By: #### C BC ####[facility] [address]ekowalga[address] [place], [place] [address]Dr. Chapisrenu Pulliam Monocytes/100 WBC (Bld) 7.6 % Normal 1.7-12.0 [facility] Comment on above: Performed By: #### C BC ####[facility] Zvlyqxaxcc[address] [place], [place] [address]Dr. Garima Pulliam NEUT # 7.0 103/ul Critically high 1.4-6.5 [facility] Comment on above: Performed By: #### C BC ####[facility] Hlxsfevauc[address] [place], [place] [address]DrAdalberto Chapisrenu Pulliam Neutrophils/100 WBC (Bld) 71.2 % Normal 43.0-75.0 [facility] Comment on above: Performed By: #### C BC ####[facility] Nzzlcygbur[address] [place], [place] [address]Dr. Garima Pulliam Platelet mean volume (Bld) [Entitic vol] 8.9 fL Critically low 9.5-13.5 [facility] Comment on above: Performed By: #### C BC ####[facility] Xojpgbgvtc4897 [place] [id number]. Garima Pulliam PLT 217 103/ul Normal 150-450 [facility] Comment on above: Performed By: #### C BC ####[facility] Tmawtmrtrt65[address] [place] [address]Dr. Garima Pulliam RBC 5.02 106/ul Normal 4.70-6.10 [facility] Comment on above: Performed By: #### C BC ####[facility] [address]qxviveoqv[address] [place], [place] [address]Dr. Garima Pulliam WBC 9.8 103/ul Normal 4.0-11.0 [facility] Comment on above: Performed By: #### C BC ####[facility] [address]akgqirokx[address] [place], [place] [address]Dr. Garima Pulliam CRPon 03-18-2023 CRP 0.1 mg/dL Normal <=1.0 [facility] Comment on above: Performed By: #### C RP ####[facility] Dhlyoermyx[address] [place], [place] [address]Dr. Garima Heraclio PROF CHEM 8 (BAS METB)on Anion gap [Moles/Vol] 10.4 mmol/L Normal [facility] Comment on above: Performed By: #### B ORACLE BRM DEVELOPER, BMP ####[facility] Bdvdlqhfwv[address] [place], [place] [address]Dr. Garima Heraclio Calcium [Mass/Vol] 8.8 mg/dL Normal 8.5-10.1 [facility] Comment on above: Performed By: #### B ORACLE BRM DEVELOPER, BMP ####[facility] Drjpnhuypa43[address] [place] [address]Dr. Garima Heraclio Chloride [Moles/Vol] 97 mmol/L Critically low 98-107 [facility] Comment on above: Performed By: #### B ORACLE BRM DEVELOPER, BMP ####[facility] Dlwnrzygpw9306 [place] [address]Dr. Garima Pulliam CO2 [Moles/Vol] 31.2 mmol/L Normal 21.0-32.0 [facility] Comment on above: Performed By: #### B ORACLE BRM DEVELOPER, BMP ####[facility] Wnzmprudcy4396 [place] [id number]. Garima Pulliam Creatinine [Mass/Vol] 0.91 mg/dL Normal 0.70-1.30 [facility] Comment on above: Performed By: #### B ORACLE BRM DEVELOPER, BMP ####[facility] Kcyuustcsu2972 [place] [id number]. Garima Pulliam EGFR-AF MALAGASY >60 Normal >=60 [facility] Comment on above: Performed By: #### B ORACLE BRM DEVELOPER, BMP ####[facility] Vukqeeeien8642 [place] [id number]. Garima Pulliam EGFR-NON AF MALAGASY >60 Normal >=60 [facility] Comment on above: Performed By: #### B ORACLE BRM DEVELOPER, BMP ####[facility] Imfjjnnuqn[address] [place], [place] [address]Dr. Garima Pulliam Glucose [Mass/Vol] 315 mg/dL Critically high 74-106 T [facility] Comment on above: Performed By: #### B ORACLE BRM DEVELOPER, BMP ####[facility] Xveslhugne[address] [place], [place] [address]Dr. Garima Pulliam Potassium [Moles/Vol] 3.6 mmol/L Normal 3.5-5.1 [facility] Comment on above: Performed By: #### B ORACLE BRM DEVELOPER, BMP ####[facility] Onahlpjmfc[address] [place], [place] [address]Dr. Garima Pulliam Sodium [Moles/Vol] 135 mmol/L Critically low 136-145 [facility] Comment on above: Performed By: #### B ORACLE BRM DEVELOPER, BMP ####[facility] Rnliftijdg1753 [place] [id number]. Garima Pulliam Urea nitrogen [Mass/Vol] 7.0 mg/dL Normal 7.0-18.0 [facility] Comment on above: Performed By: #### B ORACLE BRM DEVELOPER, BMP ####[facility] Zrgretodzi[address] [place], [place] [address]Dr. Garima Pulliam Urea nitrogen/Creatinine [Mass ratio] 7.7 mg/mg Normal [facility] Comment on above: Performed By: #### B ORACLE BRM DEVELOPER, BMP ####[facility] [address]wiancxcbm[address] [place], [place] [address]Dr. Garima Pulliam SED RATE WESTERGRENon 2022 SED RATE 8 mm/hr Normal <=20 [facility] Comment on above: Performed By: #### S EDR ####[facility] [address]qyxsrvvl[address] [place], [place] [address]Dr. Garima Pulliam BNPon 03-16-2023 Natriuretic peptide B (Bld) [Mass/Vol] 241.0 pg/mL Normal <=900.0 [facility] Comment on above: Performed By: #### B ORACLE BRM DEVELOPER, BMP, HSTROPN ####[facility] [address]ypfxhzw[address] [place], [place] [address]Dr. Garima Heraclio CBC AUTO DIFFon 03-16-2023 BASO # 0.0 103/ul Normal 0.0-0.1 [facility] Comment on above: Performed By: #### C BC ####[facility] [address]fmetlhpcu[address] [place], [place] [address]Dr. Garima Heraclio Basophils/100 WBC (Bld) 0.2 % Normal 0.2-2.0 [facility] Comment on above: Performed By: #### C BC ####[facility] Vkdrsgwcbr[address] [place], [place] [address]Dr. Chapisrenu Heraclio EO # 0.2 103/ul Normal 0.0-0.7 [facility] Comment on above: Performed By: #### C BC ####[facility] [address]jnhuzzvej[address] [place], [place] [address]Dr. Chapisrenu Pulliam Eosinophils/100 WBC (Bld) 2.7 % Normal 0.9-7.0 [facility] Comment on above: Performed By: #### C BC ####[facility] Voyvxtapnm[address] [place], [place] [address]Dr. Garima Heraclio Erythrocyte distribution width (RBC) [Ratio] 13.1 % Normal 11.0-15.0 [facility] Comment on above: Performed By: #### C BC ####[facility] Ygvwvqcdqq[address] [place], [place] [address]Dr. Garima Pulliam Hematocrit (Bld) [Volume fraction] 41.8 % Critically low 42.0-54.0 [facility] Comment on above: Performed By: #### C BC ####[facility] [address] [place] [address]DrAdalberto Pulliam Hemoglobin (Bld) [Mass/Vol] 14.0 g/dL Normal 14.0-18.0 [facility] Comment on above: Performed By: #### C BC ####[facility] Zvhosvzhfa[address] [place], [place] [address]DrAdalberto Pulliam IG # 0.03 10e3/ul Normal 0.00-0.03 [facility] Comment on above: Performed By: #### C BC ####[facility] Cqcicgxdhu[address] [place], [place] [address]DrAdalberto Pulliam IG % 0.3 % Normal 0.0-0.5 [facility] Comment on above: Performed By: #### C BC ####[facility] Gtcaeywupy[address] [place], [place] [address]DrAdalberto Pulliam LYMPH # 2.1 103/ul Normal 1.2-3.8 [facility] Comment on above: Performed By: #### C BC ####[facility] Xgmpfusezz[address] [place], [place] [address]DrAdalberto Pulliam Lymphocytes/100 WBC (Bld) 24.2 % Normal 20.5-60.0 [facility] Comment on above: Performed By: #### C BC ####[facility] Soarrsowsw[address] [place], [place] [address]DrAdalberto Pulliam MANUAL DIFF REQ NO Normal [facility] Comment on above: Performed By: #### C BC ####[facility] Wvnlvwzipl[address] [place], [place] [address]DrAdalberto Pulliam MCH (RBC) [Entitic mass] 30.2 pg Normal 25.9-34.0 [facility] Comment on above: Performed By: #### C BC ####[facility] Fxgfbqzfcs9[address] [place], [place] [address]DrAdalberto Pulliam MCHC (RBC) [Mass/Vol] 33.5 g/dL Normal 29.9-35.2 [facility] Comment on above: Performed By: #### C BC ####[facility] Dftzqvjnwj[address] [place], [place] [address]DrAdalberto Pulliam MCV (RBC) [Entitic vol] 90.1 fL Normal 80.0-94.0 [facility] Comment on above: Performed By: #### C BC ####[facility] Jbgnlqowuj[address] [place], [place] [address]DrAdalberto Pulliam MONO # 0.6 103/ul Normal 0.3-0.8 [facility] Comment on above: Performed By: #### C BC ####[facility] Phfyymvkbt[address] [place], [place] [address]DrAdalberto Pulliam Monocytes/100 WBC (Bld) 7.4 % Normal 1.7-12.0 [facility] Comment on above: Performed By: #### C BC ####[facility] Njrjdyryyc[address] [place], [place] [address]DrAdalberto Pulliam NEUT # 5.6 103/ul Normal 1.4-6.5 [facility] Comment on above: Performed By: #### C BC ####[facility] Mgmnqzftnv8500[address] [place], [place] [address]DrAdalberto Pulliam Neutrophils/100 WBC (Bld) 65.2 % Normal 43.0-75.0 [facility] Comment on above: Performed By: #### C BC ####[facility] Vklucrvhbd[address] [place], [place] [address]DrAdalberto Pulliam Platelet mean volume (Bld) [Entitic vol] 8.7 fL Critically low 9.5-13.5 [facility] Comment on above: Performed By: #### C BC ####[facility] Xldipccoar[address] [place], [place] [address]DrAdalberto Pulliam PLT 195 103/ul Normal 150-450 [facility] Comment on above: Performed By: #### C BC ####[facility] Trwqcqqzif[address] [place], [place] [address]DrAdalberto Pulliam RBC 4.64 106/ul Critically low 4.70-6.10 [facility] Comment on above: Performed By: #### C BC ####[facility] Mnnkxgvqnc8[address] [place], [place] [address]Dr. Garima Pulliam WBC 8.6 103/ul Normal 4.0-11.0 [facility] Comment on above: Performed By: #### C BC ####[facility] Cctmmflzlc[address] [place], [place] [address]Dr. Garima Pulliam PROF CHEM 8 (BAS METB)on Anion gap [Moles/Vol] 6.7 mmol/L Normal [facility] Comment on above: Performed By: #### B ORACLE BRM DEVELOPER, BMP, HSTROPN ####[facility] Jdoxlhrijp[address] [place], [place] [address]Dr. Garima Pulliam Calcium [Mass/Vol] 8.8 mg/dL Normal 8.5-10.1 [facility] Comment on above: Performed By: #### B ORACLE BRM DEVELOPER, BMP, HSTROPN ####[facility] Icvqjasmqz[address] [place], [place] [address]Dr. Garima Pulliam Chloride [Moles/Vol] 106 mmol/L Normal 98-107 [facility] Comment on above: Performed By: #### B ORACLE BRM DEVELOPER, BMP, HSTROPN ####[facility] Sdudqcepna9[address] [place], [place] [address]Dr. Garima Pulliam CO2 [Moles/Vol] 31.4 mmol/L Normal 21.0-32.0 [facility] Comment on above: Performed By: #### B ORACLE BRM DEVELOPER, BMP, HSTROPN ####[facility] Rzmnwewidc[address] [place], [place] [address]Dr. Garima Pulliam Creatinine [Mass/Vol] 0.75 mg/dL Normal 0.70-1.30 [facility] Comment on above: Performed By: #### B ORACLE BRM DEVELOPER, BMP, HSTROPN ####[facility] Aqolkqussb[address] [place], [place] [address]Dr. Garima Pulliam EGFR-AF MALAGASY >60 Normal >=60 [facility] Comment on above: Performed By: #### B ORACLE BRM DEVELOPER, BMP, HSTROPN ####[facility] [address]dfh[address] [place] [address]Dr. Garima Pulliam EGFR-NON AF MALAGASY >60 Normal >=60 [facility] Comment on above: Performed By: #### B ORACLE BRM DEVELOPER, BMP, HSTROPN ####[facility] Gsxvtopdqm[address] [place] [address]Dr. Garima Pulliam Glucose [Mass/Vol] 161 mg/dL Critically high 74-106 [facility] Comment on above: Performed By: #### B ORACLE BRM DEVELOPER, BMP, HSTROPN ####[facility] [address]sruk[address] [place] [address]Dr. Garima Pulliam Potassium [Moles/Vol] 4.1 mmol/L Normal 3.5-5.1 [facility] Comment on above: Performed By: #### B ORACLE BRM DEVELOPER, BMP, HSTROPN ####[facility] Cmgkopknhu[address] [place] [address]Dr. Garima Pulliam Sodium [Moles/Vol] 140 mmol/L Normal 136-145 [facility] Comment on above: Performed By: #### B ORACLE BRM DEVELOPER, BMP, HSTROPN ####[facility] Wafmzodqsv[address] [place] [address]Dr. Garima Pulliam Urea nitrogen [Mass/Vol] 7.0 mg/dL Normal 7.0-18.0 [facility] Comment on above: Performed By: #### B ORACLE BRM DEVELOPER, BMP, HSTROPN ####[facility] G[address]nuinxny[address] [place] [address]Dr. Garima Pulliam Urea nitrogen/Creatinine [Mass ratio] 9.3 mg/mg Normal [facility] Comment on above: Performed By: #### B ORACLE BRM DEVELOPER, BMP, HSTROPN ####[facility] Clncyqgujp9[address] [place], [place] [address]Dr. Garima Pulliam TROPONIN, HIGH SENSITIVITYon 03-16-2023 HSTROP 9.7 pg/mL Normal 4.0-76.1 [facility] Comment on above: Result Comment: CUT- OFF POINTS HAVE BEEN ESTABLISHED BASED ON THE FOURTH UNIVERSAL DEFINITIONS OF MYOCARDIALINFARCTION. THE UPPER REFERENCE LIMIT (URL) OF TROPONIN, DEFINED THE 99TH PERCENTILE OFcTnI DISTRIBUTION IN A REFERENCE POPULATION, HAS BEEN CONFIRMED THE DECISION THRESHOLDFOR OK DIAGNOSIS. Performed By: #### B ORACLE BRM DEVELOPER, BMP, HSTROPN ####[facility] [address]tafdd[address] [place] [address]Dr. Garima Pulliam XR CHEST 1 Von 03-16-2023 XR CHEST 1 V Normal [facility] BNPon 03-06-2023 Natriuretic peptide B (Bld) [Mass/Vol] 111.0 pg/mL Normal <=900.0 [facility] Comment on above: Performed By: #### C MP, BNP, CK ####[facility] Iktnskhuwa[address] [place], [place] [address]Dr. Garima Heraclio CBC AUTO DIFFon 03-06-2023 BASO # 0.0 103/ul Normal 0.0-0.1 [facility] Comment on above: Performed By: #### C BC ####[facility] Pgshycwaye96[address] [place], [place] [address]Dr. Chapisrenu Pulliam Basophils/100 WBC (Bld) 0.2 % Normal 0.2-2.0 [facility] Comment on above: Performed By: #### C BC ####[facility] Pbeuhybbwy[address] [place], [place] [address]Dr. Chapisrenu Pulliam EO # 0.3 103/ul Normal 0.0-0.7 [facility] Comment on above: Performed By: #### C BC ####[facility] Ksikbznewv[address] [place], [place] [address]Dr. Chapisrenu Pulliam Eosinophils/100 WBC (Bld) 3.5 % Normal 0.9-7.0 [facility] Comment on above: Performed By: #### C BC ####[facility] Veowkeyjhp[address] [place], [place] [address]Dr. Garima Heraclio Erythrocyte distribution width (RBC) [Ratio] 13.3 % Normal 11.0-15.0 [facility] Comment on above: Performed By: #### C BC ####[facility] Mfofdzdqpl[address] [place], [place] [address]Dr. Chapisrenu Pulliam Hematocrit (Bld) [Volume fraction] 43.7 % Normal 42.0-54.0 [facility] Comment on above: Performed By: #### C BC ####[facility] [address] [place] [address]Dr. Garima Pulliam Hemoglobin (Bld) [Mass/Vol] 14.7 g/dL Normal 14.0-18.0 [facility] Comment on above: Performed By: #### C BC ####[facility] [address]jvnyw[address] [place] [address]Dr. Garima Pulliam IG # 0.03 10e3/ul Normal 0.00-0.03 [facility] Comment on above: Performed By: #### C BC ####[facility] Lvlmnygcod[address] [place] [address]Dr. Garima Pulliam IG % 0.4 % Normal 0.0-0.5 [facility] Comment on above: Performed By: #### C BC ####[facility] Kycccqvlzo[address] [place], [place] [address]Dr. Garima Pulliam LYMPH # 2.0 103/ul Normal 1.2-3.8 [facility] Comment on above: Performed By: #### C BC ####[facility] Vbmywyspbn[address] [place], [place] [address]Dr. Garima Pulliam Lymphocytes/100 WBC (Bld) 23.7 % Normal 20.5-60.0 [facility] Comment on above: Performed By: #### C BC ####[facility] Xeoofkcowv919[address] [place], [place] [address]Dr. Garima Pulliam MANUAL DIFF REQ NO Normal [facility] Comment on above: Performed By: #### C BC ####[facility] Gtbiiasnym[address] [place], [place] [address]Dr. Garima Pulliam MCH (RBC) [Entitic mass] 30.1 pg Normal 25.9-34.0 [facility] Comment on above: Performed By: #### C BC ####[facility] Yieueicabm25[address] [place], [place] [address]Dr. Garima Pulliam MCHC (RBC) [Mass/Vol] 33.6 g/dL Normal 29.9-35.2 [facility] Comment on above: Performed By: #### C BC ####[facility] R[address]abobgw[address] [place] [address]Dr. Garima Pulliam MCV (RBC) [Entitic vol] 89.4 fL Normal 80.0-94.0 [facility] Comment on above: Performed By: #### C BC ####[facility] Cczqixzfbt[address] [place], [place] [address]Dr. Garima Pulliam MONO # 0.8 103/ul Normal 0.3-0.8 [facility] Comment on above: Performed By: #### C BC ####[facility] Jgxjcrwfod[address] [place], [place] [address]Dr. Garima Pluliam Monocytes/100 WBC (Bld) 9.0 % Normal 1.7-12.0 [facility] Comment on above: Performed By: #### C BC ####[facility] Awnapdotkm913[address] [place], [place] [address]Dr. Garima Pulliam NEUT # 5.4 103/ul Normal 1.4-6.5 [facility] Comment on above: Performed By: #### C BC ####[facility] Psdukdcnvl5864[address] [place], [place] [address]Dr. Garima Pulliam Neutrophils/100 WBC (Bld) 63.2 % Normal 43.0-75.0 [facility] Comment on above: Performed By: #### C BC ####[facility] Otdmdcveeb[address] [place], [place] [address]Dr. Garima Pulliam Platelet mean volume (Bld) [Entitic vol] 9.0 fL Critically low 9.5-13.5 [facility] Comment on above: Performed By: #### C BC ####[facility] Fnpeqienil50[address] [place], [place] [address]Dr. Garima Pulliam PLT 218 103/ul Normal 150-450 [facility] Comment on above: Performed By: #### C BC ####[facility] Pyvkrtgqhn504[address] [place], [place] [address]Dr. Garima Pulliam RBC 4.89 106/ul Normal 4.70-6.10 [facility] Comment on above: Performed By: #### C BC ####[facility] [address]oupv[address] [place] [address]Dr. Garima Pulliam WBC 8.5 103/ul Normal 4.0-11.0 [facility] Comment on above: Performed By: #### C BC ####[facility] [address]up[address] [place] [address]Dr. Garima Heraclio CPKon 03-06-2023 CK [Catalytic activity/Vol] 191 U/L Normal 39-308 [facility] Comment on above: Performed By: #### C MP, BNP, CK ####[facility] Gqaijyyyap[address] [place], [place] [address]Dr. Garima Pulliam PROF 14(COMP METB)on 023 Albumin [Mass/Vol] 3.6 g/dL Normal 3.4-5.0 [facility] Comment on above: Performed By: #### C MP, BNP, CK ####[facility] Y[address]xumzcu[address] [place] [address]Dr. Garima Pulliam Albumin/Globulin [Mass ratio] 1.2 {ratio} Normal [facility] Comment on above: Performed By: #### C MP, BNP, CK ####[facility] Dqtdgyzmum[address] [place], [place] [address]Dr. Garima Pulliam ALP [Catalytic activity/Vol] 91 U/L Normal 46-116 [facility] Comment on above: Performed By: #### C MP, BNP, CK ####[facility] [address]usltuineh[address] [place] [address]Dr. Garima Pulliam ALT [Catalytic activity/Vol] 33 U/L Normal 16-63 [facility] Comment on above: Performed By: #### C MP, BNP, CK ####[facility] Vnxcbhimqj[address] [place], [place] [address]Dr. Garima Pulliam Anion gap [Moles/Vol] 10.3 mmol/L Normal [facility] Comment on above: Performed By: #### C MP, BNP, CK ####[facility] Nfaczgoyvj[address] [place] [address]Dr. Garima Pulliam AST [Catalytic activity/Vol] 17 U/L Normal 15-37 [facility] Comment on above: Performed By: #### C MP, BNP, CK ####[facility] I[address]avkjkeu[address] [place] [address]Dr. Garima Pulliam Bilirubin [Mass/Vol] 0.4 mg/dL Normal 0.2-1.0 [facility] Comment on above: Performed By: #### C MP, BNP, CK ####[facility] Avdenbjseg[address] [place] [address]Dr. Garima Pulliam Calcium [Mass/Vol] 9.1 mg/dL Normal 8.5-10.1 [facility] Comment on above: Performed By: #### C MP, BNP, CK ####[facility] Kitmjfdugm[address] [place], [place] [address]Dr. Garima Pulliam Chloride [Moles/Vol] 102 mmol/L Normal 98-107 [facility] Comment on above: Performed By: #### C MP, BNP, CK ####[facility] Orauuiyspd[address] [place], [place] [address]Dr. Garima Pulliam CO2 [Moles/Vol] 29.7 mmol/L Normal 21.0-32.0 [facility] Comment on above: Performed By: #### C MP, BNP, CK ####[facility] Uistujldsh[address] [place], [place] [address]Dr. Garima Pulliam Creatinine [Mass/Vol] 0.79 mg/dL Normal 0.70-1.30 [facility] Comment on above: Performed By: #### C MP, BNP, CK ####[facility] [address]btttj[address] [place] [address]Dr. Garima Pulliam EGFR-AF MALAGASY >60 Normal >=60 [facility] Comment on above: Performed By: #### C MP, BNP, CK ####[facility] [address]ax[address] [place] [address]Dr. Garima Pulliam EGFR-NON AF MALAGASY >60 Normal >=60 [facility] Comment on above: Performed By: #### C MP, BNP, CK ####[facility] Xzbazirxhr[address] [place] [address]Dr. Garima Pulliam Globulin (S) [Mass/Vol] 3.0 g/dL Normal [facility] Comment on above: Performed By: #### C MP, BNP, CK ####[facility] Bf[address]rcrdqx[address] [place] [address]Dr. Garima Pulliam Glucose [Mass/Vol] 202 mg/dL Critically high 74-106 [facility] Comment on above: Performed By: #### C MP, BNP, CK ####[facility] Htsarrbqel[address] [place] [address]Dr. Garima Pulliam Potassium [Moles/Vol] 4.0 mmol/L Normal 3.5-5.1 [facility] Comment on above: Performed By: #### C MP, BNP, CK ####[facility] Atfvizuvsl[address] [place], [place] [address]Dr. Garima Pulliam Protein [Mass/Vol] 6.6 g/dL Normal 6.4-8.2 [facility] Comment on above: Performed By: #### C MP, BNP, CK ####[facility] Ynbjrgqrxn[address] [place], [place] [address]Dr. Garima Pulliam Sodium [Moles/Vol] 138 mmol/L Normal 136-145 [facility] Comment on above: Performed By: #### C MP, BNP, CK ####[facility] Skxuazmrqt6[address] [place], [place] [address]Dr. Garima Pulliam Urea nitrogen [Mass/Vol] 10.0 mg/dL Normal 7.0-18.0 [facility] Comment on above: Performed By: #### C MP, BNP, CK ####[facility] Uktqmaaazd[address] [place], [place] [address]Dr. Garima Pulliam Urea nitrogen/Creatinine [Mass ratio] 12.7 mg/mg Normal [facility] Comment on above: Performed By: #### C MP, BNP, CK ####[facility] Uoygnqowpo[address] [place], [place] [address]DrAdalberto Pulliam US VERONICA DOP LEG BILon 03-06- 023 US VERONICA DOP LEG BENOIT Normal [facility] CBC AUTO DIFFon 01-13-2023 BASO # 0.0 103/ul Normal 0.0-0.1 [facility] Comment on above: Performed By: #### C BC ####[facility] Ghkkwbglvi6[address] [place] [address]DrAdalberto Pulliam Basophils/100 WBC (Bld) 0.0 % Critically low 0.2-2.0 [facility] Comment on above: Performed By: #### C BC ####[facility] V[address]lvwlk[address] [place], [place] [address]DrAdalberto Pulliam EO # 0.0 103/ul Normal 0.0-0.7 [facility] Comment on above: Performed By: #### C BC ####[facility] Vgredauroz[address] [place] [address]DrAdalberto Pulliam Eosinophils/100 WBC (Bld) 0.0 % Critically low 0.9-7.0 [facility] Comment on above: Performed By: #### C BC ####[facility] Xdpfqlqaan[address] [place], [place] [address]DrAdalberto Pulliam Erythrocyte distribution width (RBC) [Ratio] 13.2 % Normal 11.0-15.0 [facility] Comment on above: Performed By: #### C BC ####[facility] Egemyyixpt[address] [place], [place] [address]DrAdalberto Pulliam Hematocrit (Bld) [Volume fraction] 46.7 % Normal 42.0-54.0 [facility] Comment on above: Performed By: #### C BC ####[facility] Eoozjfxotl[address] [place] [address]DrAdalberto Pulliam Hemoglobin (Bld) [Mass/Vol] 15.6 g/dL Normal 14.0-18.0 [facility] Comment on above: Performed By: #### C BC ####[facility] Adngwyjsul[address] [place], [place] [address]DrAdalberto Pulliam IG # 0.01 10e3/ul Normal 0.00-0.03 [facility] Comment on above: Performed By: #### C BC ####[facility] Vrklcljbzb45[address] [place] [address]DrAdalberto Chapisrenu Pulliam IG % 0.2 % Normal 0.0-0.5 [facility] Comment on above: Performed By: #### C BC ####[facility] [address]bxvxmsnsr3[address] [place] [id number] Pulliam LYMPH # 0.8 103/ul Critically low 1.2-3.8 [facility] Comment on above: Performed By: #### C BC ####[facility] Qgndidysdw8808 [place] [address]DrAdalberto Pulliam Lymphocytes/100 WBC (Bld) 12.7 % Critically low 20.5-60.0 [facility] Comment on above: Performed By: #### C BC ####[facility] Okbsxjcduo[address] [place] [address]DrAdalberto Pulliam MANUAL DIFF REQ NO Normal [facility] Comment on above: Performed By: #### C BC ####[facility] Tjpquekfmt8215 [place] [id number] Garima Heraclio MCH (RBC) [Entitic mass] 30.2 pg Normal 25.9-34.0 [facility] Comment on above: Performed By: #### C BC ####[facility] Azltmjuawu1102 [place] [id number] Pulliam MCHC (RBC) [Mass/Vol] 33.4 g/dL Normal 29.9-35.2 [facility] Comment on above: Performed By: #### C BC ####[facility] Mtszgjaizn7966 [place] [id number] Pulliam MCV (RBC) [Entitic vol] 90.3 fL Normal 80.0-94.0 [facility] Comment on above: Performed By: #### C BC ####[facility] Gncpzmkntb7804 [place] [id number] Pulliam MONO # 0.1 103/ul Critically low 0.3-0.8 [facility] Comment on above: Performed By: #### C BC ####[facility] [address]yluetscag[address] [place] [address]Dr. Garima Pulliam Monocytes/100 WBC (Bld) 0.9 % Critically low 1.7-12.0 [facility] Comment on above: Performed By: #### C BC ####[facility] Tud[address]kcmhu[address] [place] [id number]. Garima Pulliam NEUT # 5.6 103/ul Normal 1.4-6.5 [facility] Comment on above: Performed By: #### C BC ####[facility] Ambpffldzn[address] [place] [address]Dr. Garima Pulliam Neutrophils/100 WBC (Bld) 86.2 % Critically high 43.0-75.0 [facility] Comment on above: Performed By: #### C BC ####[facility] Rkwlkubfmo[address] [place] [address]Dr. Garima Pulliam Platelet mean volume (Bld) [Entitic vol] 9.1 fL Critically low 9.5-13.5 [facility] Comment on above: Performed By: #### C BC ####[facility] Fpssppgbkg[address] [place], [place] [address]Dr. Garima Pulliam PLT 169 103/ul Normal 150-450 [facility] Comment on above: Performed By: #### C BC ####[facility] Qogdijzkgn17[address] [place] [address]Dr. Garima Pulliam RBC 5.17 106/ul Normal 4.70-6.10 [facility] Comment on above: Performed By: #### C BC ####[facility] Apjrveokbe5910 [place] [id number]. Garima Pulliam WBC 6.5 103/ul Normal 4.0-11.0 [facility] Comment on above: Performed By: #### C BC ####[facility] Bwwzuvufiv[address] [place] [address]Dr. Garima Pulliam D-DIMERon 01-13-2023 D-DIMER 0.41 mg/L FEU Normal <=0.59 [facility] Comment on above: Performed By: #### D DIM ####[facility] Sxarjocaav[address] [place] [address]Dr. Garima Pulliam D-DIMER COMMENTS SEE BELOW Normal [facility] Comment on above: Result Comment: [...] generalized hospitalization. Performed By: #### D DIM ####[facility] Ogwimfextg[address] [place], [place] [address]Dr. Garima Pulliam PROF 14(COMP METB)on 023 Albumin [Mass/Vol] 3.4 g/dL Normal 3.4-5.0 [facility] Comment on above: Performed By: #### C MP ####[facility] Cbqhrqzgkn[address] [place], [place] [address]Dr. Garima Pulliam Albumin/Globulin [Mass ratio] 1.3 {ratio} Normal [facility] Comment on above: Performed By: #### C MP ####[facility] Klheiwaocr[address] [place], [place] [address]Dr. Garima Pulliam ALP [Catalytic activity/Vol] 83 U/L Normal 46-116 [facility] Comment on above: Performed By: #### C MP ####[facility] [address]ayntvrvb[address] [place] [address]Dr. Garima Pulliam ALT [Catalytic activity/Vol] 25 U/L Normal 16-63 [facility] Comment on above: Performed By: #### C MP ####[facility] Ejefijlrlw[address] [place] [address]Dr. Garima Pulliam Anion gap [Moles/Vol] 14.5 mmol/L Normal [facility] Comment on above: Performed By: #### C MP ####[facility] [address]ubjvmdnnk[address] [place] [id number]. Garima Pulliam AST [Catalytic activity/Vol] 19 U/L Normal 15-37 [facility] Comment on above: Performed By: #### C MP ####[facility] [address] [place] [id number]. Garima Pulliam Bilirubin [Mass/Vol] 0.4 mg/dL Normal 0.2-1.0 [facility] Comment on above: Performed By: #### C MP ####[facility] Lvzes[address]kff[address] [place] [id number]. Garima Pulliam Calcium [Mass/Vol] 8.7 mg/dL Normal 8.5-10.1 [facility] Comment on above: Performed By: #### C MP ####[facility] Ybgnxxro[address] [place], [place] [id number]. Garima Pulliam Chloride [Moles/Vol] 104 mmol/L Normal 98-107 [facility] Comment on above: Performed By: #### C MP ####[facility] Xzzhfjsbyo[address] [place], [place] [address]Dr. Garima Pulliam CO2 [Moles/Vol] 24.5 mmol/L Normal 21.0-32.0 [facility] Comment on above: Performed By: #### C MP ####[facility] Unismgmfbn[address] [place], [place] [address]Dr. Garima Pulliam Creatinine [Mass/Vol] 0.70 mg/dL Normal 0.70-1.30 [facility] Comment on above: Performed By: #### C MP ####[facility] Ovhfsyncbx[address] [place] [id number]. Garima Heraclio EGFR-AF MALAGASY >60 Normal >=60 The [facility] Comment on above: Performed By: #### C MP ####[facility] Nhqqdiwxos[address] [place], [place] [address]Dr. Chapisrenu Heraclio EGFR-NON AF MALAGASY >60 Normal >=60 [facility] Comment on above: Performed By: #### C MP ####[facility] Ddmimttxfs[address] [place], [place] [address]Dr. Garima Pulliam Globulin (S) [Mass/Vol] 2.6 g/dL Normal [facility] Comment on above: Performed By: #### C MP ####[facility] Gwcpdumskk[address] [place], [place] [address]Dr. Garima Pulliam Glucose [Mass/Vol] 196 mg/dL Critically high 74-106 [facility] Comment on above: Performed By: #### C MP ####[facility] Tsqbsrrfvn[address] [place], [place] [address]Dr. Garima Pulliam Potassium [Moles/Vol] 4.0 mmol/L Normal 3.5-5.1 [facility] Comment on above: Performed By: #### C MP ####[facility] Zeelfmpsvr[address] [place], [place] [address]Dr. Garima Pulliam Protein [Mass/Vol] 6.0 g/dL Critically low 6.4-8.2 [facility] Comment on above: Performed By: #### C MP ####[facility] Oovnwkecer8[address] [place], [place] [address]Dr. Garima Pulliam Sodium [Moles/Vol] 139 mmol/L Normal 136-145 [facility] Comment on above: Performed By: #### C MP ####[facility] Eyelcbuxia64[address] [place], [place] [address]Dr. Garima Pulliam Urea nitrogen [Mass/Vol] 7.0 mg/dL Normal 7.0-18.0 [facility] Comment on above: Performed By: #### C MP ####[facility] Bdbknguxcv[address] [place], [place] [address]Dr. Garima Pulliam Urea nitrogen/Creatinine [Mass ratio] 10.0 mg/mg Normal [facility] Comment on above: Performed By: #### C MP ####[facility] Cncgnnnjle[address] [place], [place] [address]Dr. Garima Pulliam BNPon 01-12-2023 Natriuretic peptide B (Bld) [Mass/Vol] 141.0 pg/mL Normal <=900.0 [facility] Comment on above: Performed By: #### C MP, BNP, HSTROPN ####[facility] Xkdfmwniyt32[address] [place] [id number]. Garima Heraclio CBC AUTO DIFFon 01-12-2023 BASO # 0.0 103/ul Normal 0.0-0.1 [facility] Comment on above: Performed By: #### C BC ####[facility] Rfbdgbeyir[address] [place], [place] [address]Dr. Garima Pulliam Basophils/100 WBC (Bld) 0.2 % Normal 0.2-2.0 [facility] Comment on above: Performed By: #### C BC ####[facility] Avjruydmhq[address] [place], [place] [address]Dr. Garima Pulliam EO # 0.2 103/ul Normal 0.0-0.7 [facility] Comment on above: Performed By: #### C BC ####[facility] Xiwbiodcvv[address] [place], [place] [address]Dr. Garima Pulliam Eosinophils/100 WBC (Bld) 2.7 % Normal 0.9-7.0 [facility] Comment on above: Performed By: #### C BC ####[facility] Xcsvvygwdb[address] [place], [place] [address]Dr. Chapisrenu Pulliam Erythrocyte distribution width (RBC) [Ratio] 13.3 % Normal 11.0-15.0 [facility] Comment on above: Performed By: #### C BC ####[facility] Votzjwcbun[address] [place], [place] [address]Dr. Garima Pulliam Hematocrit (Bld) [Volume fraction] 42.3 % Normal 42.0-54.0 [facility] Comment on above: Performed By: #### C BC ####[facility] Oequzubeic[address] [place], [place] [address]Dr. Garima Pulliam Hemoglobin (Bld) [Mass/Vol] 14.3 g/dL Normal 14.0-18.0 [facility] Comment on above: Performed By: #### C BC ####[facility] Kotbkvrrib[address] [place], [place] [address]Dr. Gairma Pulliam IG # 0.02 10e3/ul Normal 0.00-0.03 [facility] Comment on above: Performed By: #### C BC ####[facility] Ab[address] [place] [id number]. Chapisrenu Pulliam IG % 0.2 % Normal 0.0-0.5 [facility] Comment on above: Performed By: #### C BC ####[facility] Xqzbtgibhb[address] [place] [id number]. Garima Pulliam LYMPH # 2.6 103/ul Normal 1.2-3.8 [facility] Comment on above: Performed By: #### C BC ####[facility] [address] [place] [address]Dr. Chapisrenu Pulliam Lymphocytes/100 WBC (Bld) 29.6 % Normal 20.5-60.0 [facility] Comment on above: Performed By: #### C BC ####[facility] [address] [place] [address]Dr. Garima Pulliam MANUAL DIFF REQ NO Normal [facility] Comment on above: Performed By: #### C BC ####[facility] [address]klmsqs[address] [place] [id number]. Garima Pulliam MCH (RBC) [Entitic mass] 30.2 pg Normal 25.9-34.0 [facility] Comment on above: Performed By: #### C BC ####[facility] Tfpigojjqk[address] [place] [id number]. Garima Pulliam MCHC (RBC) [Mass/Vol] 33.8 g/dL Normal 29.9-35.2 [facility] Comment on above: Performed By: #### C BC ####[facility] Qvmwfvxkqb97[address] [place] [id number]. Garima Pulliam MCV (RBC) [Entitic vol] 89.2 fL Normal 80.0-94.0 [facility] Comment on above: Performed By: #### C BC ####[facility] Heeikxasii[address] [place], [place] [address]Dr. Garima Pulliam MONO # 0.7 103/ul Normal 0.3-0.8 [facility] Comment on above: Performed By: #### C BC ####[facility] Bgxxmmgsce[address] [place] [id number]. Garima Pulliam Monocytes/100 WBC (Bld) 8.3 % Normal 1.7-12.0 [facility] Comment on above: Performed By: #### C BC ####[facility] [address]xl[address] [place] [id number]. Garima Pulliam NEUT # 5.1 103/ul Normal 1.4-6.5 [facility] Comment on above: Performed By: #### C BC ####[facility] [address]jiv[address] [place] [id number]. Garima Pulliam Neutrophils/100 WBC (Bld) 59.0 % Normal 43.0-75.0 [facility] Comment on above: Performed By: #### C BC ####[facility] [address] [place] [address]Dr. Garima Pulliam Platelet mean volume (Bld) [Entitic vol] 8.7 fL Critically low 9.5-13.5 [facility] Comment on above: Performed By: #### C BC ####[facility] Mccr[address]zqezz[address] [place] [id number]. Garima Pulliam PLT 182 103/ul Normal 150-450 [facility] Comment on above: Performed By: #### C BC ####[facility] F[address]elqtmsn[address] [place] [id number]. Garima Pulliam RBC 4.74 106/ul Normal 4.70-6.10 [facility] Comment on above: Performed By: #### C BC ####[facility] Ztwyocjexg[address] [place], [place] [address]Dr. Garima Pulliam WBC 8.7 103/ul Normal 4.0-11.0 [facility] Comment on above: Performed By: #### C BC ####[facility] Hldigoncfk[address] [place], [place] [address]Dr. Garima Pulliam [facility]on 12-25 SARS-CoV-2 (COVID-19) RNA MARIE+probe Ql (Unsp spec) Not detected Normal NOT DETECTED [facility] Comment on above: Result Comment: When diagnostic [...] for this test is supported by the [place] [employer] of Health and Human Service's declaration that [...] be used). Performed By: #### C VDTB ####[facility] [address] [place] [address]Dr. Garima Pulliam PROF 14(COMP METB)on 023 Albumin [Mass/Vol] 3.6 g/dL Normal 3.4-5.0 [facility] Comment on above: Performed By: #### C MP, BNP, HSTROPN ####[facility] [address] [place] [address]Dr. Garima Pulliam Albumin/Globulin [Mass ratio] 1.5 {ratio} Normal [facility] Comment on above: Performed By: #### C MP, BNP, HSTROPN ####[facility] [address]ra[address] [place] [address]Dr. Garima Pulliam ALP [Catalytic activity/Vol] 79 U/L Normal 46-116 [facility] Comment on above: Performed By: #### C MP, BNP, HSTROPN ####[facility] [address] [place] [address]Dr. Garima Pulliam ALT [Catalytic activity/Vol] 27 U/L Normal 16-63 [facility] Comment on above: Performed By: #### C MP, BNP, HSTROPN ####[facility] Xxfpiehyjj[address] [place] [address]Dr. Garima Pulliam Anion gap [Moles/Vol] 11.7 mmol/L Normal [facility] Comment on above: Performed By: #### C MP, BNP, HSTROPN ####[facility] [address]bpeflwo[address] [place] [address]Dr. Garima Pulliam AST [Catalytic activity/Vol] 21 U/L Normal 15-37 [facility] Comment on above: Performed By: #### C MP, BNP, HSTROPN ####[facility] [address]ymriypk[address] [place] [address]Dr. Garima Pulliam Bilirubin [Mass/Vol] 0.3 mg/dL Normal 0.2-1.0 [facility] Comment on above: Performed By: #### C MP, BNP, HSTROPN ####[facility] Fylswdybrj[address] [place], [place] [address]Dr. Garima Pulliam Calcium [Mass/Vol] 8.9 mg/dL Normal 8.5-10.1 [facility] Comment on above: Performed By: #### C MP, BNP, HSTROPN ####[facility] Rqpjhkvpej[address] [place], [place] [address]Dr. Garima Pulliam Chloride [Moles/Vol] 107 mmol/L Normal 98-107 [facility] Comment on above: Performed By: #### C MP, BNP, HSTROPN ####[facility] Woevuxunmf[address] [place], [place] [address]Dr. Garima Pulliam CO2 [Moles/Vol] 26.0 mmol/L Normal 21.0-32.0 [facility] Comment on above: Performed By: #### C MP, BNP, HSTROPN ####[facility] Emmvrtawvo[address] [place], [place] [address]Dr. Garima Pulliam Creatinine [Mass/Vol] 0.65 mg/dL Critically low 0.70-1.30 [facility] Comment on above: Performed By: #### C MP, BNP, HSTROPN ####[facility] [address]udlr[address] [place] [address]Dr. Garima Pulliam EGFR-AF MALAGASY >60 Normal >=60 [facility] Comment on above: Performed By: #### C MP, BNP, HSTROPN ####[facility] T[address]zel[address] [place] [address]Dr. Garima Pulliam EGFR-NON AF MALAGASY >60 Normal >=60 [facility] Comment on above: Performed By: #### C MP, BNP, HSTROPN ####[facility] Riqtoevhgq[address] [place], [place] [address]Dr. Garima Pulliam Globulin (S) [Mass/Vol] 2.4 g/dL Normal [facility] Comment on above: Performed By: #### C MP, BNP, HSTROPN ####[facility] Gvupiiwlqc[address] [place], [place] [address]Dr. Garima Pulliam Glucose [Mass/Vol] 85 mg/dL Normal 74-106 [facility] Comment on above: Performed By: #### C MP, BNP, HSTROPN ####[facility] Yskqhkweli[address] [place], [place] [address]Dr. Garima Pulliam Potassium [Moles/Vol] 3.7 mmol/L Normal 3.5-5.1 [facility] Comment on above: Performed By: #### C MP, BNP, HSTROPN ####[facility] Tgxzqkqxvk[address] [place], [place] [address]Dr. Garima Pulliam Protein [Mass/Vol] 6.0 g/dL Critically low 6.4-8.2 [facility] Comment on above: Performed By: #### C MP, BNP, HSTROPN ####[facility] [address]dzczz[address] [place] [address]Dr. Garima Pulliam Sodium [Moles/Vol] 141 mmol/L Normal 136-145 [facility] Comment on above: Performed By: #### C MP, BNP, HSTROPN ####[facility] Qvrupjfeit[address] [place] [address]Dr. Garima Pulliam Urea nitrogen [Mass/Vol] 5.0 mg/dL Critically low 7.0-18.0 [facility] Comment on above: Performed By: #### C MP, BNP, HSTROPN ####[facility] [address]qdldqxeag[address] [place] [address]Dr. Garima Pulliam Urea nitrogen/Creatinine [Mass ratio] 7.7 mg/mg Normal [facility] Comment on above: Performed By: #### C MP, BNP, HSTROPN ####[facility] [address]zsuilt[address] [place] [address]Dr. Garima Pulliam PROTIMEon 01-12-2023 INR Coag (PPP) [Relative time] 1.16 {INR} Normal [facility] Comment on above: Performed By: #### P TT, PT ####[facility] Ybbbnmcsho[address] [place], [place] [address]Dr. Garima Pulliam INR GUIDELINES SEE BELOW Normal [facility] Comment on above: Result Comment: WESLEY RED INR: 2.0 - 3.0 CONDITIONS NOT LISTED BELOW 2.5 - 3.5 FOR PROSTHETIC HEART VALVE REPLACEMENT 2.5 - 3.5 RECURRENT THROMBOSIS Performed By: #### P TT, PT ####[facility] Lknsnufkru[address] [place], [place] [address]Dr. Garima Pulliam PT Coag (PPP) [Time] 12.2 s Critically high 9.0-11.6 [facility] Comment on above: Performed By: #### P TT, PT ####[facility] [address]qvylca[address] [place], [place] [address]Dr. Garima Pulliam PTTon 01-12-2023 aPTT Coag (Bld) [Time] 29.1 s Normal 22.3-36.2 [facility] Comment on above: Performed By: #### P TT, PT ####[facility] Ejaigbfdbw[address] [place], [place] [address]Dr. Garima Pulliam TROPONIN, HIGH SENSITIVITYon 01-12-2023 HSTROP 10.3 pg/mL Normal 4.0-76.1 [facility] Comment on above: Result Comment: CUT- OFF POINTS HAVE BEEN ESTABLISHED BASED ON THE FOURTH UNIVERSAL DEFINITIONS OF MYOCARDIALINFARCTION. THE UPPER REFERENCE LIMIT (URL) OF TROPONIN, DEFINED THE 99TH PERCENTILE OFcTnI DISTRIBUTION IN A REFERENCE POPULATION, HAS BEEN CONFIRMED THE DECISION THRESHOLDFOR OK DIAGNOSIS. Performed By: #### H STROPN ####[facility] [address]yes[address]ustt[address] [place] [address]Dr. Garima Pulliam HSTROP 9.2 pg/mL Normal 4.0-76.1 [facility] Comment on above: Result Comment: CUT- OFF POINTS HAVE BEEN ESTABLISHED BASED ON THE FOURTH UNIVERSAL DEFINITIONS OF MYOCARDIALINFARCTION. THE UPPER REFERENCE LIMIT (URL) OF TROPONIN, DEFINED THE 99TH PERCENTILE OFcTnI DISTRIBUTION IN A REFERENCE POPULATION, HAS BEEN CONFIRMED THE DECISION THRESHOLDFOR OK DIAGNOSIS. Performed By: #### C MP, BNP, HSTROPN ####[facility] Yfxahljmzh[address] [place], [place] [address]Dr. Garima Pulliam XR CHEST 1 Von 01-12-2023 XR CHEST 1 V Normal [facility] XR CHEST 1 Von 01-01-2023 XR CHEST 1 V Normal [facility] CARDIAC NASH 3-6on 3 CK [Catalytic activity/Vol] 196 U/L Normal 39-308 [facility] Comment on above: Performed By: #### C MREP ####[facility] [address]wwvkgqtj[address] [place], [place] [address]Dr. Garima Pulliam CK.MB [Mass/Vol] 7.41 ng/mL Critically high <=3.60 [facility] Comment on above: Performed By: #### C MREP ####[facility] [address]rtrvqob[address] [place] [address]Dr. Garima Pulliam HSTROP 10.3 pg/mL Normal 4.0-76.1 [facility] Comment on above: Result Comment: CUT- OFF POINTS HAVE BEEN ESTABLISHED BASED ON THE FOURTH UNIVERSAL DEFINITIONS OF MYOCARDIALINFARCTION. THE UPPER REFERENCE LIMIT (URL) OF TROPONIN, DEFINED THE 99TH PERCENTILE OFcTnI DISTRIBUTION IN A REFERENCE POPULATION, HAS BEEN CONFIRMED THE DECISION THRESHOLDFOR OK DIAGNOSIS. Performed By: #### C MREP ####[facility] [address]egry[address] [place] [address]Dr. Garima Pulliam XR CHEST 1 Von 12-26-2022 XR CHEST 1 V Normal [facility] BNPon 12-25-2022 Natriuretic peptide B (Bld) [Mass/Vol] 98.0 pg/mL Normal <=900.0 [facility] Comment on above: Performed By: #### B ORACLE BRM DEVELOPER, BMP, CMADM ####[facility] [address]tc[address] [place] [id number]. Garima Pulliam CARDIAC NASH ADMITon 023 CK [Catalytic activity/Vol] 208 U/L Normal 39-308 [facility] Comment on above: Performed By: #### B ORACLE BRM DEVELOPER, BMP, CMADM ####[facility] Hqaasyatin32[address] [place] [address]Dr. Garima Pulliam CK.MB [Mass/Vol] 7.63 ng/mL Critically high <=3.60 [facility] Comment on above: Performed By: #### B ORACLE BRM DEVELOPER, BMP, CMADM ####[facility] Ed[address]ffwhzgv4[address] [place] [address]Dr. Garima Pulliam HSTROP 8.8 pg/mL Normal 4.0-76.1 [facility] Comment on above: Result Comment: CUT- OFF POINTS HAVE BEEN ESTABLISHED BASED ON THE FOURTH UNIVERSAL DEFINITIONS OF MYOCARDIALINFARCTION. THE UPPER REFERENCE LIMIT (URL) OF TROPONIN, DEFINED THE 99TH PERCENTILE OFcTnI DISTRIBUTION IN A REFERENCE POPULATION, HAS BEEN CONFIRMED THE DECISION THRESHOLDFOR OK DIAGNOSIS. Performed By: #### B ORACLE BRM DEVELOPER, BMP, CMADM ####[facility] [address]jwbrluu[address] [place] [address]Dr. Garima Pulliam DORIS 83 ng/mL Normal 16-96 [facility] Comment on above: Performed By: #### B ORACLE BRM DEVELOPER, BMP, CMADM ####[facility] Ibvisnfseb[address] [place] [id number]. Garima Pulliam CBC AUTO DIFFon 12-25-2022 BASO # 0.0 103/ul Normal 0.0-0.1 [facility] Comment on above: Performed By: #### C BC ####[facility] [address]kerdlarl[address] [place] [address]Dr. Garima Pulliam Basophils/100 WBC (Bld) 0.0 % Critically low 0.2-2.0 [facility] Comment on above: Performed By: #### C BC ####[facility] F[address]hsbjtymg[address] [place], [place] [address]Dr. Chapisrenu Pulliam EO # 0.0 103/ul Normal 0.0-0.7 [facility] Comment on above: Performed By: #### C BC ####[facility] Rtwmceomqr[address] [place], [place] [address]Dr. Garima Pulliam Eosinophils/100 WBC (Bld) 0.7 % Critically low 0.9-7.0 [facility] Comment on above: Performed By: #### C BC ####[facility] Eykpereqva[address] [place], [place] [address]Dr. Garima Pulliam Erythrocyte distribution width (RBC) [Ratio] 13.4 % Normal 11.0-15.0 [facility] Comment on above: Performed By: #### C BC ####[facility] Itapphwxco54[address] [place], [place] [address]Dr. Garima Pulliam Hematocrit (Bld) [Volume fraction] 42.9 % Normal 42.0-54.0 [facility] Comment on above: Performed By: #### C BC ####[facility] Zxobuzpapc[address] [place], [place] [address]Dr. Chapisrenu Pluliam Hemoglobin (Bld) [Mass/Vol] 14.4 g/dL Normal 14.0-18.0 [facility] Comment on above: Performed By: #### C BC ####[facility] Swnbwrtryb[address] [place], [place] [address]Dr. Garima Pulliam IG # 0.00 10e3/ul Normal 0.00-0.03 [facility] Comment on above: Performed By: #### C BC ####[facility] Fshfajjgdx[address] [place], [place] [address]Dr. Garima Pulliam IG % 0.0 % Normal 0.0-0.5 [facility] Comment on above: Performed By: #### C BC ####[facility] Laynkjzqql[address] [place], [place] [address]Dr. Garima Pulliam LYMPH # 2.4 103/ul Normal 1.2-3.8 [facility] Comment on above: Performed By: #### C BC ####[facility] Ehdxhnpjxk35[address] [place] [address]Dr. Garima Pulliam Lymphocytes/100 WBC (Bld) 29.2 % Normal 20.5-60.0 [facility] Comment on above: Performed By: #### C BC ####[facility] Auacckkjdl[address] [place] [address]Dr. Garima Pulliam MANUAL DIFF REQ NO Normal [facility] Comment on above: Performed By: #### C BC ####[facility] Zitzmwqfbk[address] [place] [address]Dr. Garima Pulliam MCH (RBC) [Entitic mass] 30.7 pg Normal 25.9-34.0 [facility] Comment on above: Performed By: #### C BC ####[facility] Eghmjxrixa[address] [place], [place] [address]Dr. Garmia Pulliam MCHC (RBC) [Mass/Vol] 33.6 g/dL Normal 29.9-35.2 [facility] Comment on above: Performed By: #### C BC ####[facility] Mqtjztgrnq[address] [place], [place] [address]Dr. Garima Pulliam MCV (RBC) [Entitic vol] 91.5 fL Normal 80.0-94.0 [facility] Comment on above: Performed By: #### C BC ####[facility] Alvroguphi[address] [place] [address]Dr. Garima Pulliam MONO # 0.0 103/ul Critically low 0.3-0.8 [facility] Comment on above: Performed By: #### C BC ####[facility] Qadiewqlej[address] [place] [address]Dr. Garima Pulliam Monocytes/100 WBC (Bld) 8.0 % Normal 1.7-12.0 [facility] Comment on above: Performed By: #### C BC ####[facility] Uxurhgugwc[address] [place] [address]Dr. Garima Pulliam NEUT # 5.1 103/ul Normal 1.4-6.5 [facility] Comment on above: Performed By: #### C BC ####[facility] Sjecoviuej[address] [place] [id number]. Garima Pulliam Neutrophils/100 WBC (Bld) 62.8 % Normal 43.0-75.0 [facility] Comment on above: Performed By: #### C BC ####[facility] Ivzuvranra5186 [place] [id number]. Garima Pulliam Platelet mean volume (Bld) [Entitic vol] 8.6 fL Critically low 9.5-13.5 [facility] Comment on above: Performed By: #### C BC ####[facility] Ychvhavyzd3644 [place] [id number]. Garima Pulliam PLT 200 103/ul Normal 150-450 [facility] Comment on above: Performed By: #### C BC ####[facility] Irfdyxxaeb8171 [place] [id number]. Garima Pulliam RBC 4.69 106/ul Critically low 4.70-6.10 [facility] Comment on above: Performed By: #### C BC ####[facility] Heeucohhih2105 [place] [id number]. Garima Pulliam WBC 8.2 103/ul Normal 4.0-11.0 [facility] Comment on above: Performed By: #### C BC ####[facility] Dgxbqvwegd22[address] [place] [id number]. Garima Pulilam [facility]on SARS-CoV-2 (COVID-19) RNA MARIE+probe Ql (Unsp spec) Not detected Normal NOT DETECTED [facility] Comment on above: Result Comment: When diagnostic [...] for this test is supported by the [place] of Health and Human Service's declaration that [...] be used). Performed By: #### C VDTBH ####[facility] [address]ztaelvino[address] [place], [place] [address]Dr. Garima Pulliam INFLUENZA A AND B AGon 12-25 INFLUANE SEE BELOW Normal [facility] Comment on above: Result Comment: Nega tive for Flu A protein angiten. Infection due to Flu A cannot be ruled out. Flu A angiten in the sample may be below the detection limit of the test. Performed By: #### I NFLUAB ####[facility] [address] [place] [address]. Garima Pulliam INFLUBNEGH SEE BELOW Normal [facility] Comment on above: Result Comment: Nega tive for Flu B protein antigen. Infection due to Flu B cannot be ruled out. Flu B antigen in the sample may be below the detection limit of the test. Performed By: #### I NFLUAB ####[facility] Figctrcpwu[address] [place], [place] [address]Dr. Garima Pulliam INFLUENZA A AG Negative Normal NEGATIVE SEE COMMENT [facility] Comment on above: Performed By: #### I NFLUAB ####[facility] Omzqluknzi[address] [place], [place] [address]Dr. Garima Pulliam INFLUENZA B AG Negative Normal NEGATIVE SEE COMMENT [facility] Comment on above: Performed By: #### I NFLUAB ####[facility] [address] [place] [address]. Garima Pulliam PROF CHEM 8 (BAS METB)on Anion gap [Moles/Vol] 11.1 mmol/L Normal [facility] Comment on above: Performed By: #### B ORACLE BRM DEVELOPER, BMP, CMADM ####[facility] Xjwdystfem37[address] [place] [id number]. aGrima Pulliam Calcium [Mass/Vol] 8.5 mg/dL Normal 8.5-10.1 [facility] Comment on above: Performed By: #### B ORACLE BRM DEVELOPER, BMP, CMADM ####[facility] Hiwqlsjshp[address] [place] [id number]. Garima Pulliam Chloride [Moles/Vol] 106 mmol/L Normal 98-107 [facility] Comment on above: Performed By: #### B ORACLE BRM DEVELOPER, BMP, CMADM ####[facility] Avlatvhydm[address] [place] [address]Dr. Garima Pulliam CO2 [Moles/Vol] 27.4 mmol/L Normal 21.0-32.0 [facility] Comment on above: Performed By: #### B ORACLE BRM DEVELOPER, BMP, CMADM ####[facility] Bk[address]hrhxj[address] [place] [address]Dr. Garima Pulliam Creatinine [Mass/Vol] 0.65 mg/dL Critically low 0.70-1.30 [facility] Comment on above: Performed By: #### B ORACLE BRM DEVELOPER, BMP, CMADM ####[facility] Zistkowvfx[address] [place] [address]Dr. Garima Pulliam EGFR-AF MALAGASY >60 Normal >=60 [facility] Comment on above: Performed By: #### B ORACLE BRM DEVELOPER, BMP, CMADM ####[facility] Ixyajiizpf69[address] [place] [address]Dr. Garima Pulliam EGFR-NON AF MALAGASY >60 Normal >=60 [facility] Comment on above: Performed By: #### B ORACLE BRM DEVELOPER, BMP, CMADM ####[facility] Qivellteoo7[address] [place] [address]Dr. Garima Pulliam Glucose [Mass/Vol] 140 mg/dL Critically high 74-106 [facility] Comment on above: Performed By: #### B ORACLE BRM DEVELOPER, BMP, CMADM ####[facility] Syegapqiny[address] [place] [address]Dr. Garima Pulliam Potassium [Moles/Vol] 3.5 mmol/L Normal 3.5-5.1 [facility] Comment on above: Performed By: #### B ORACLE BRM DEVELOPER, MARVIN, CMAANA ROSA ####[facility] Surecdtqic[address] [place] [address]Dr. Garima Pulliam Sodium [Moles/Vol] 141 mmol/L Normal 136-145 [facility] Comment on above: Performed By: #### B ORACLE BRM DEVELOPER, MARVIN, CMAANA ROSA ####[facility] Kipdendexo[address] [place] [address]Dr. Chapisrenu Pulliam Urea nitrogen [Mass/Vol] 8.0 mg/dL Normal 7.0-18.0 [facility] Comment on above: Performed By: #### B ORACLE BRM DEVELOPERMARVIN CMADM ####[facility] Teitjntkvd[address] [place] [address]Dr. Garima Pulliam Urea nitrogen/Creatinine [Mass ratio] 12.3 mg/mg Normal [facility] Comment on above: Performed By: #### B MARVIN FRENCH, CMAANA ROSA ####[facility] Iocv[address] [place], [place] [address]Dr. Garima Pulliam CARDIAC NASH ADMITon 023 CK [Catalytic activity/Vol] 165 U/L Normal 39-308 [facility] Comment on above: Performed By: #### B NANCY HERNANDEZ ####[facility] Wns[address]rt[address] [place], [place] [address]Dr. Chapisrenu Pulliam CK.MB [Mass/Vol] 6.48 ng/mL Critically high <=3.60 [facility] Comment on above: Performed By: #### B MP, CMADM ####[facility] Wul[address] [place], [place] [address]Dr. Garima Heraclio HSTROP 11.7 pg/mL Normal 4.0-76.1 [facility] Comment on above: Result Comment: CUT- OFF POINTS HAVE BEEN ESTABLISHED BASED ON THE FOURTH UNIVERSAL DEFINITIONS OF MYOCARDIALINFARCTION. THE UPPER REFERENCE LIMIT (URL) OF TROPONIN, DEFINED THE 99TH PERCENTILE OFcTnI DISTRIBUTION IN A REFERENCE POPULATION, HAS BEEN CONFIRMED THE DECISION THRESHOLDFOR [place] DIAGNOSIS. Performed By: #### B DAVID, CMADM ####[facility] Fpulgsxcni8512 [place] [id number]. Garima Pulliam DORIS 83 ng/mL Normal 16-96 [facility] Comment on above: Performed By: #### B DAVID, ERVINDM ####[facility] Nkcyxdjzov050[address] [place] [id number]. Garima Pulliam CBC AUTO DIFFon 12-10-2022 BASO # 0.0 103/ul Normal 0.0-0.1 [facility] Comment on above: Performed By: #### C BC ####[facility] Afzbwamwzh6938 [place] [id number]. Garima Pulliam Basophils/100 WBC (Bld) 0.3 % Normal 0.2-2.0 [facility] Comment on above: Performed By: #### C BC ####[facility] Mfceubkzim8816 [place] [id number]. Garima Pulliam EO # 0.1 103/ul Normal 0.0-0.7 [facility] Comment on above: Performed By: #### C BC ####[facility] Tevocbaffh4406 [place] [id number]. Garima Pulliam Eosinophils/100 WBC (Bld) 0.4 % Critically low 0.9-7.0 [facility] Comment on above: Performed By: #### C BC ####[facility] Ecatalaguv1000 [place] [id number]. Garima Pulliam Erythrocyte distribution width (RBC) [Ratio] 13.2 % Normal 11.0-15.0 [facility] Comment on above: Performed By: #### C BC ####[facility] Nnqgwjiskv9443 [place] [id number]. Garima Pulliam Hematocrit (Bld) [Volume fraction] 42.4 % Normal 42.0-54.0 [facility] Comment on above: Performed By: #### C BC ####[facility] X[address] [place], [place] [id number]. Garima Pulliam Hemoglobin (Bld) [Mass/Vol] 14.4 g/dL Normal 14.0-18.0 [facility] Comment on above: Performed By: #### C BC ####[facility] Pntconxtit1079 [place] [id number]. Garima Pulliam IG # 0.05 10e3/ul Critically high 0.00-0.03 [facility] Comment on above: Performed By: #### C BC ####[facility] Pvdaglbldb1867 [place] [id number]. Garima Pulliam IG % 0.4 % Normal 0.0-0.5 [facility] Comment on above: Performed By: #### C BC ####[facility] Exzbnwytoy[address] [place] [address]Dr. Garima Pulliam LYMPH # 0.8 103/ul Critically low 1.2-3.8 [facility] Comment on above: Performed By: #### C BC ####[facility] Thhctrfcsj6323 [place] [address]Dr. Garima Pulliam Lymphocytes/100 WBC (Bld) 6.5 % Critically low 20.5-60.0 [facility] Comment on above: Performed By: #### C BC ####[facility] Qzlfrhiask68[address] [place] [address]Dr. Garima Pulliam MANUAL DIFF REQ NO Normal [facility] Comment on above: Performed By: #### C BC ####[facility] Rntibthppn2193 [place] [address]Dr. Garima Pulliam MCH (RBC) [Entitic mass] 30.5 pg Normal 25.9-34.0 [facility] Comment on above: Performed By: #### C BC ####[facility] Hp[address] [place], [place] [address]Dr. Garima Pulliam MCHC (RBC) [Mass/Vol] 34.0 g/dL Normal 29.9-35.2 [facility] Comment on above: Performed By: #### C BC ####[facility] Kaabrmenaj27[address] [place] [address]Dr. Garima Pulliam MCV (RBC) [Entitic vol] 89.8 fL Normal 80.0-94.0 [facility] Comment on above: Performed By: #### C BC ####[facility] Hcutszhaum4345 [place] [id number]. Garima Pulliam MONO # 0.2 103/ul Critically low 0.3-0.8 [facility] Comment on above: Performed By: #### C BC ####[facility] Mdaqdwkyyy5364 [place] [id number]. Garima Pulliam Monocytes/100 WBC (Bld) 2.0 % Normal 1.7-12.0 [facility] Comment on above: Performed By: #### C BC ####[facility] Pskfskqxyl6980 [place] [id number]. Garima Pulliam NEUT # 10.5 103/ul Critically high 1.4-6.5 [facility] Comment on above: Performed By: #### C BC ####[facility] Mgigzjhkvb1672 [place] [id number]. Garima Pulliam Neutrophils/100 WBC (Bld) 90.4 % Critically high 43.0-75.0 [facility] Comment on above: Performed By: #### C BC ####[facility] Oydgfullix4140 [place] [id number]. Garima Pulliam Platelet mean volume (Bld) [Entitic vol] 9.4 fL Critically low 9.5-13.5 [facility] Comment on above: Performed By: #### C BC ####[facility] Psdkexgmhv9737 [place] [id number]. Garima Pulliam PLT 198 103/ul Normal 150-450 [facility] Comment on above: Performed By: #### C BC ####[facility] Aodtcasoqe8045 [place] [id number]. Garima Pulliam RBC 4.72 106/ul Normal 4.70-6.10 [facility] Comment on above: Performed By: #### C BC ####[facility] Rxcqfjsiez0554 [place] [id number]. Garima Pulliam WBC 11.6 103/ul Critically high 4.0-11.0 [facility] Comment on above: Performed By: #### C BC ####[facility] Yfywnkmena[address] [place] [address]Dr. Garima Pulliam PROF CHEM 8 (BAS METB)on Anion gap [Moles/Vol] 11.3 mmol/L Normal [facility] Comment on above: Performed By: #### B DAVID, CMADM ####[facility] Nwdkwrrznr1283 [place] [address]Dr. Garima Pulliam Calcium [Mass/Vol] 8.9 mg/dL Normal 8.5-10.1 [facility] Comment on above: Performed By: #### B DAVID, CMADM ####[facility] Vhffthasqm99[address] [place] [address]Dr. Garima Pulliam Chloride [Moles/Vol] 103 mmol/L Normal 98-107 [facility] Comment on above: Performed By: #### B DAVID, CMADM ####[facility] Vdydlwrycl5371 [place] [address]Dr. Garima Pulliam CO2 [Moles/Vol] 28.2 mmol/L Normal 21.0-32.0 [facility] Comment on above: Performed By: #### B DAVID, CMADM ####[facility] Jnvbuyutof4433 [place] [address]Dr. Garima Pulliam Creatinine [Mass/Vol] 0.60 mg/dL Critically low 0.70-1.30 [facility] Comment on above: Performed By: #### Trae HERNANDEZ, CMADM ####[facility] Nqmtvfqloy1780 [place] [address]Dr. Garima Pulliam EGFR-AF MALAGASY >60 Normal >=60 [facility] Comment on above: Performed By: #### B DAVID, CMADM ####[facility] Jfcvdqmaek1818 [place] [address]Dr. Garima Pulliam EGFR-NON AF MALAGASY >60 Normal >=60 [facility] Comment on above: Performed By: #### B DAVID, CMADM ####[facility] Tjeqhkwwyh2834 [place] [address]Dr. Garima Pulliam Glucose [Mass/Vol] 166 mg/dL Critically high 74-106 [facility] Comment on above: Performed By: #### B DAVID, NANCY ####[facility] Kbredtxhri4662 [place] [address]Dr. Garima Pulliam Potassium [Moles/Vol] 3.5 mmol/L Normal 3.5-5.1 [facility] Comment on above: Performed By: #### B DAVID, CMADM ####[facility] Odwuoreyrt[address] [place], [place] [address]Dr. Garima Pulliam Sodium [Moles/Vol] 139 mmol/L Normal 136-145 [facility] Comment on above: Performed By: #### B DAVID, NANCY ####[facility] Wopbecpszv[address] [place], [place] [address]Dr. Garima Pulliam Urea nitrogen [Mass/Vol] 9.0 mg/dL Normal 7.0-18.0 [facility] Comment on above: Performed By: #### B NANCY HERNANDEZ ####[facility] R[address]tr[address] [place], [place] [address]Dr. Garima Pulliam Urea nitrogen/Creatinine [Mass ratio] 15.0 mg/mg Normal [facility] Comment on above: Performed By: #### B NANCY HERNANDEZ ####[facility] Gkvkuptefj[address] [place], [place] [address]Dr. Chapisrenu Heraclio XR CHEST 1 Von 12-10-2022 XR CHEST 1 V Normal [facility] BNPon 11-27-2022 Natriuretic peptide B (Bld) [Mass/Vol] 95.0 pg/mL Normal <=900.0 [facility] Comment on above: Performed By: #### C MP, HSTROPN, BNP ####[facility] Aolpnzlhbn[address] [place], [place] [address]Dr. Garima Pulliam CBC AUTO DIFFon 11-27-2022 BASO # 0.0 103/ul Normal 0.0-0.1 [facility] Comment on above: Performed By: #### C BC ####[facility] Mwxmnbrksw[address] [place], [place] [address]Dr. Garima Pulliam Basophils/100 WBC (Bld) 0.2 % Normal 0.2-2.0 [facility] Comment on above: Performed By: #### C BC ####[facility] Vkxmuutubv0150 [place] [id number]. Garima Pulliam EO # 0.2 103/ul Normal 0.0-0.7 [facility] Comment on above: Performed By: #### C BC ####[facility] Hipkjwijim4155 [place] [address]Dr. Garima Pulliam Eosinophils/100 WBC (Bld) 2.0 % Normal 0.9-7.0 [facility] Comment on above: Performed By: #### C BC ####[facility] [address]oxeoextw[address] [place], [place] [address]Dr. Garima Pulliam Erythrocyte distribution width (RBC) [Ratio] 13.2 % Normal 11.0-15.0 [facility] Comment on above: Performed By: #### C BC ####[facility] Alrgfrjqod[address] [place], [place] [address]Dr. Garima Pulliam Hematocrit (Bld) [Volume fraction] 42.4 % Normal 42.0-54.0 [facility] Comment on above: Performed By: #### C BC ####[facility] [address]pvbepfp[address] [place], [place] [address]Dr. Garima Pulliam Hemoglobin (Bld) [Mass/Vol] 14.4 g/dL Normal 14.0-18.0 [facility] Comment on above: Performed By: #### C BC ####[facility] Vz[address]rbrxtm[address] [place], [place] [address]Dr. Garima Pulliam IG # 0.04 10e3/ul Critically high 0.00-0.03 [facility] Comment on above: Performed By: #### C BC ####[facility] Igxfllmavi[address] [place], [place] [address]Dr. Garima Pulliam IG % 0.4 % Normal 0.0-0.5 [facility] Comment on above: Performed By: #### C BC ####[facility] [address]jfwccxpjm[address] [place], [place] [address]Dr. Chapisrenu Pulliam LYMPH # 2.2 103/ul Normal 1.2-3.8 [facility] Comment on above: Performed By: #### C BC ####[facility] Ssssvjqqzx7768 [place] [id number]. Garima Pulliam Lymphocytes/100 WBC (Bld) 21.5 % Normal 20.5-60.0 [facility] Comment on above: Performed By: #### C BC ####[facility] Vnbevpyaio0890 [place] [id number]. Garima Pulliam MANUAL DIFF REQ NO Normal [facility] Comment on above: Performed By: #### C BC ####[facility] Akryoljwjl8729 [place] [id number]. Garima Pulliam MCH (RBC) [Entitic mass] 30.4 pg Normal 25.9-34.0 [facility] Comment on above: Performed By: #### C BC ####[facility] Iwoncqwznk4891 [place] [id number]. Garima Pulliam MCHC (RBC) [Mass/Vol] 34.0 g/dL Normal 29.9-35.2 [facility] Comment on above: Performed By: #### C BC ####[facility] Vuhahypshg9380 [place] [id number]. Garima Pulliam MCV (RBC) [Entitic vol] 89.6 fL Normal 80.0-94.0 [facility] Comment on above: Performed By: #### C BC ####[facility] Yzmxzzcamo3819 [place] [id number]. Garima Pulliam MONO # 0.8 103/ul Normal 0.3-0.8 [facility] Comment on above: Performed By: #### C BC ####[facility] Jhnxbkcept2175 [place] [id number]. Garima Pulliam Monocytes/100 WBC (Bld) 7.7 % Normal 1.7-12.0 [facility] Comment on above: Performed By: #### C BC ####[facility] Gokxbsjrfb4610 [place] [id number]. Garima Pulliam NEUT # 7.0 103/ul Critically high 1.4-6.5 [facility] Comment on above: Performed By: #### C BC ####[facility] Lnhkkeccxf[address] [place] [address]Dr. Garima Pulliam Neutrophils/100 WBC (Bld) 68.2 % Normal 43.0-75.0 [facility] Comment on above: Performed By: #### C BC ####[facility] Cbybccygrr3642 [place] [address]Dr. Garima Pulliam Platelet mean volume (Bld) [Entitic vol] 8.9 fL Critically low 9.5-13.5 [facility] Comment on above: Performed By: #### C BC ####[facility] Yxoietxfgr7692 [place] [address]Dr. Garima Pulliam PLT 222 103/ul Normal 150-450 [facility] Comment on above: Performed By: #### C BC ####[facility] Eyfgjrxfbn6011 [place] [address]Dr. Garima Pulliam RBC 4.73 106/ul Normal 4.70-6.10 [facility] Comment on above: Performed By: #### C BC ####[facility] [address]ud[address]werwc[address] [place], [place] [address]Dr. Garima Pulliam WBC 10.3 103/ul Normal 4.0-11.0 [facility] Comment on above: Performed By: #### C BC ####[facility] Capwxwgqad8214 [place] [address]Dr. Garima Pulliam PROF 14(COMP METB)on 023 Albumin [Mass/Vol] 3.7 g/dL Normal 3.4-5.0 [facility] Comment on above: Performed By: #### C MP, HSTROPN, BNP ####[facility] Wqvooyvhoj2038 [place] [address]Dr. Garima Pulliam Albumin/Globulin [Mass ratio] 1.5 {ratio} Normal [facility] Comment on above: Performed By: #### C MP, HSTROPN, BNP ####[facility] Fmssrkdxcd5551 [place] [address]Dr. Garima Pulliam ALP [Catalytic activity/Vol] 79 U/L Normal 46-116 [facility] Comment on above: Performed By: #### C DAVID HSTROPN, BNP ####[facility] Ydlkrtnles3596 [place] [address]Dr. Garima Pulliam ALT [Catalytic activity/Vol] 32 U/L Normal 16-63 [facility] Comment on above: Performed By: #### C DAVID HSTROPN, BNP ####[facility] Itaidtobxq7960 [place] [address]Dr. Garima Pulliam Anion gap [Moles/Vol] 9.5 mmol/L Normal [facility] Comment on above: Performed By: #### C DAVID HSTROPN, BNP ####[facility] G[address]wdteyzg[address] [place], [place] [address]Dr. Garima Pulliam AST [Catalytic activity/Vol] 25 U/L Normal 15-37 [facility] Comment on above: Performed By: #### C DAVID HSTROPN, BNP ####[facility] Atampuxucx[address] [place], [place] [address]Dr. Garima Pulliam Bilirubin [Mass/Vol] 0.4 mg/dL Normal 0.2-1.0 [facility] Comment on above: Performed By: #### C DAVID HSTROPN, BNP ####[facility] Mkypmdikqr[address] [place], [place] [address]Dr. Garima Pulliam Calcium [Mass/Vol] 8.9 mg/dL Normal 8.5-10.1 [facility] Comment on above: Performed By: #### C DAVID, HSTROPN, BNP ####[facility] [address]wqrodps[address] [place], [place] [address]Dr. Garima Pullima Chloride [Moles/Vol] 103 mmol/L Normal 98-107 [facility] Comment on above: Performed By: #### C DAVID, HSTROPN, BNP ####[facility] Rwknwigcby9794 [place] [address]Dr. Garima Pulliam CO2 [Moles/Vol] 28.6 mmol/L Normal 21.0-32.0 [facility] Comment on above: Performed By: #### C MP, HSTROPN, BNP ####[facility] Vatjndsect6733 [place] [address]Dr. Garima Pulliam Creatinine [Mass/Vol] 0.72 mg/dL Normal 0.70-1.30 [facility] Comment on above: Performed By: #### C MP, HSTROPN, BNP ####[facility] Wnsjajbxsa7803 [place] [address]Dr. Garima Pulliam EGFR-AF MALAGASY >60 Normal >=60 [facility] Comment on above: Performed By: #### C MP, HSTROPN, BNP ####[facility] [address]zhioyfuwx[address] [place], [place] [address]Dr. Garima Pulliam EGFR-NON AF MALAGASY >60 Normal >=60 [facility] Comment on above: Performed By: #### C MP, HSTROPN, BNP ####[facility] [address]ptjdbvo[address] [place], [place] [address]Dr. Garima Pulliam Globulin (S) [Mass/Vol] 2.5 g/dL Normal [facility] Comment on above: Performed By: #### C MP, HSTROPN, BNP ####[facility] Feczycooxr[address] [place], [place] [address]Dr. Garima Pulliam Glucose [Mass/Vol] 114 mg/dL Critically high 74-106 [facility] Comment on above: Performed By: #### C MP, HSTROPN, BNP ####[facility] [address]encfckeox[address] [place], [place] [address]Dr. Garima Pulliam Potassium [Moles/Vol] 4.1 mmol/L Normal 3.5-5.1 [facility] Comment on above: Performed By: #### C MP, HSTROPN, BNP ####[facility] Lqkxnrksms[address] [place], [place] [address]Dr. Garima Pulliam Protein [Mass/Vol] 6.2 g/dL Critically low 6.4-8.2 [facility] Comment on above: Performed By: #### C MP, HSTROPN, BNP ####[facility] Ojnazwvzlj0431 [place] [address]Dr. Garima Pulliam Sodium [Moles/Vol] 137 mmol/L Normal 136-145 [facility] Comment on above: Performed By: #### C MP, HSTROPN, BNP ####[facility] Pdekifvwuj2208 [place] [address]Dr. Garima Pulliam Urea nitrogen [Mass/Vol] 13.0 mg/dL Normal 7.0-18.0 [facility] Comment on above: Performed By: #### C MP, HSTROPN, BNP ####[facility] Bzicermxjd1223 [place] [address]Dr. Garima Pulliam Urea nitrogen/Creatinine [Mass ratio] 18.1 mg/mg Normal [facility] Comment on above: Performed By: #### C MP, HSTROPN, BNP ####[facility] Nigndeiitq[address] [place], [place] [address]Dr. Garima Pulliam TROPONIN, HIGH SENSITIVITYon 11-27-2022 HSTROP 11.8 pg/mL Normal 4.0-76.1 [facility] Comment on above: Result Comment: CUT- OFF POINTS HAVE BEEN ESTABLISHED BASED ON THE FOURTH UNIVERSAL DEFINITIONS OF MYOCARDIALINFARCTION. THE UPPER REFERENCE LIMIT (URL) OF TROPONIN, DEFINED THE 99TH PERCENTILE OFcTnI DISTRIBUTION IN A REFERENCE POPULATION, HAS BEEN CONFIRMED THE DECISION THRESHOLDFOR [place] DIAGNOSIS. Performed By: #### C MP, HSTROPN, BNP ####[facility] [address]imadv[address] [place], [place] [address]Dr. Garima Pulliam XR CHEST 1 Von 11-27-2022 XR CHEST 1 V Normal [facility] BNPon 11-20-2022 Natriuretic peptide B (Bld) [Mass/Vol] 73.0 pg/mL Normal <=900.0 [facility] Comment on above: Performed By: #### B MP, HSTROPN, BNP ####[facility] Tetwgldeyv8087 [place] [address]Dr. Chapisrenu Pulliam CBC AUTO DIFFon 11-20-2022 BASO # 0.0 103/ul Normal 0.0-0.1 [facility] Comment on above: Performed By: #### C BC ####[facility] Xuniqheinv4963 [place] [id number]. Garima Pulliam Basophils/100 WBC (Bld) 0.3 % Normal 0.2-2.0 [facility] Comment on above: Performed By: #### C BC ####[facility] [address]ntwh[address]fu[address] [place], [place] [address]Dr. Garima Pulliam EO # 0.2 103/ul Normal 0.0-0.7 [facility] Comment on above: Performed By: #### C BC ####[facility] [address]beatzbf[address] [place], [place] [address]Dr. Garima Pulliam Eosinophils/100 WBC (Bld) 2.1 % Normal 0.9-7.0 [facility] Comment on above: Performed By: #### C BC ####[facility] R[address]dt[address]if[address] [place], [place] [address]Dr. Garima Pulliam Erythrocyte distribution width (RBC) [Ratio] 13.2 % Normal 11.0-15.0 [facility] Comment on above: Performed By: #### C BC ####[facility] [address]mpfxf[address] [place], [place] [address]Dr. Garima Pulliam Hematocrit (Bld) [Volume fraction] 43.4 % Normal 42.0-54.0 [facility] Comment on above: Performed By: #### C BC ####[facility] [address]bzzl[address] [place], [place] [id number]. Garima Pulliam Hemoglobin (Bld) [Mass/Vol] 14.6 g/dL Normal 14.0-18.0 [facility] Comment on above: Performed By: #### C BC ####[facility] Ikqodbison[address] [place], [place] [address]Dr. Garima Pulliam IG # 0.02 10e3/ul Normal 0.00-0.03 [facility] Comment on above: Performed By: #### C BC ####[facility] [address]zixpjk[address] [place], [place] [address]Dr. Garima Pulliam IG % 0.2 % Normal 0.0-0.5 [facility] Comment on above: Performed By: #### C BC ####[facility] Skrojfumlw[address]86 [place] [id number]. Garima Heraclio LYMPH # 2.1 103/ul Normal 1.2-3.8 [facility] Comment on above: Performed By: #### C BC ####[facility] [address]qvffytcz[address] [place] [id number]. Garima Pulliam Lymphocytes/100 WBC (Bld) 19.2 % Critically low 20.5-60.0 [facility] Comment on above: Performed By: #### C BC ####[facility] Nkmxlmrmdu17[address] [place] [id number]. Garima Pulliam MANUAL DIFF REQ NO Normal [facility] Comment on above: Performed By: #### C BC ####[facility] Zskblaakug29[address] [place] [id number]. Garima Pulliam MCH (RBC) [Entitic mass] 30.4 pg Normal 25.9-34.0 [facility] Comment on above: Performed By: #### C BC ####[facility] Eqwtxcapvc[address] [place] [id number]. Garima Heraclio MCHC (RBC) [Mass/Vol] 33.6 g/dL Normal 29.9-35.2 [facility] Comment on above: Performed By: #### C BC ####[facility] Aizailqdkv79[address] [place] [id number]. Garima Pulliam MCV (RBC) [Entitic vol] 90.4 fL Normal 80.0-94.0 [facility] Comment on above: Performed By: #### C BC ####[facility] Lfqpirsnzk4464 [place] [id number]. Garima Pulliam MONO # 0.6 103/ul Normal 0.3-0.8 [facility] Comment on above: Performed By: #### C BC ####[facility] Pkpwifipeq4487 [place] [id number]. Garima Pulliam Monocytes/100 WBC (Bld) 5.8 % Normal 1.7-12.0 [facility] Comment on above: Performed By: #### C BC ####[facility] Vpmctmtpqt5219 [place] [id number]. Garima Pulliam NEUT # 7.8 103/ul Critically high 1.4-6.5 [facility] Comment on above: Performed By: #### C BC ####[facility] Tbwsqmodpq9351 [place] [id number]. Garima Pulliam Neutrophils/100 WBC (Bld) 72.4 % Normal 43.0-75.0 [facility] Comment on above: Performed By: #### C BC ####[facility] Brvzbeivix1222 [place] [id number]. Garima Pulliam Platelet mean volume (Bld) [Entitic vol] 8.7 fL Critically low 9.5-13.5 [facility] Comment on above: Performed By: #### C BC ####[facility] Exmpfcdkwd[address] [place] [address]Dr. Garima Pulliam PLT 184 103/ul Normal 150-450 [facility] Comment on above: Performed By: #### C BC ####[facility] Qyrassenxj3744 [place] [id number]. Garima Pulliam RBC 4.80 106/ul Normal 4.70-6.10 [facility] Comment on above: Performed By: #### C BC ####[facility] Hnkwesbhzo7410 [place] [id number]. Garima Pulliam WBC 10.8 103/ul Normal 4.0-11.0 [facility] Comment on above: Performed By: #### C BC ####[facility] [address]vxc[address] [place], [place] [id number]. Garima Pulliam [facility]on [facility]-24 SARS-CoV-2 (COVID-19) RNA MARIE+probe Ql (Unsp spec) Not detected Normal NOT DETECTED The [facility] Comment on above: Result Comment: When diagnostic [...] for this test is supported by the [place] of Health and Human Service's declaration that [...] be used). Performed By: #### C VDTB ####[facility] Abvfoblrwd[address] [place], [place] [address]Dr. Garima Pulliam INFLUENZA A AND B AGon 11-20 [facility] SEE BELOW Normal [facility] Comment on above: Result Comment: Nega tive for Flu A protein angiten. Infection due to Flu A cannot be ruled out. Flu A angiten in the sample may be below the detection limit of the test. Performed By: #### I NFLUAB ####[facility] Xowllqanpo[address] [place], [place] [address]Dr. Garima Pulliam INFLUBNEG SEE BELOW Normal [facility] Comment on above: Result Comment: Nega tive for Flu B protein antigen. Infection due to Flu B cannot be ruled out. Flu B antigen in the sample may be below the detection limit of the test. Performed By: #### I NFLUAB ####[facility] Xdgg[address]azy[address] [place], [place] [address]Dr. Garima Pulliam INFLUENZA A AG Negative Normal NEGATIVE SEE COMMENT The [facility] Comment on above: Performed By: #### I NFLUAB ####[facility] Ncdcmxwdsb[address] [place], [place] [address]DrAdalberto Pulliam INFLUENZA B AG Negative Normal NEGATIVE SEE COMMENT [facility] Comment on above: Performed By: #### I NFLUAB ####[facility] Lqbrqighkf[address] [place], [place] [address]Dr. Garima Pulliam PROF CHEM 8 (BAS METB)on Anion gap [Moles/Vol] 8.2 mmol/L Normal [facility] Comment on above: Performed By: #### B MP, HSTROPN, BNP ####[facility] Qjmtghcetc[address] [place] [address]Dr. Garima Pulliam Calcium [Mass/Vol] 8.7 mg/dL Normal 8.5-10.1 [facility] Comment on above: Performed By: #### B MP, HSTROPN, BNP ####[facility] Cjldlzkukg9[address] [place] [address]Dr. Garima Pulliam Chloride [Moles/Vol] 103 mmol/L Normal 98-107 [facility] Comment on above: Performed By: #### B MP, HSTROPN, BNP ####[facility] Vqmldknbag2102 [place] [address]Dr. Garima Pulliam CO2 [Moles/Vol] 29.4 mmol/L Normal 21.0-32.0 The [facility] Comment on above: Performed By: #### B MP, HSTROPN, BNP ####[facility] Mrcxdugilc[address] [place], [place] [address]Dr. Garima Pulliam Creatinine [Mass/Vol] 0.69 mg/dL Critically low 0.70-1.30 [facility] Comment on above: Performed By: #### B MP, HSTROPN, BNP ####[facility] Tlycvzd[address] [place], [place] [address]Dr. Garima Pulliam EGFR-AF MALAGASY >60 Normal >=60 The [facility] Comment on above: Performed By: #### B MP, HSTROPN, BNP ####[facility] Pejueiacpw[address] [place], [place] [address]Dr. Garima Pulliam EGFR-NON AF MALAGASY >60 Normal >=60 [facility] Comment on above: Performed By: #### B MP, HSTROPN, BNP ####[facility] Ukgqqqlkzs9[address] [place] [address]Dr. Garima Pulliam Glucose [Mass/Vol] 209 mg/dL Critically high 74-106 [facility] Comment on above: Performed By: #### B MP, HSTROPN, BNP ####[facility] Lcpimtrkrp03[address] [place] [address]Dr. Garima Pulliam Potassium [Moles/Vol] 3.6 mmol/L Normal 3.5-5.1 [facility] Comment on above: Performed By: #### B MP, HSTROPN, BNP ####[facility] Tvcumrzevy95[address] [place] [address]Dr. Garima Pulliam Sodium [Moles/Vol] 137 mmol/L Normal 136-145 [facility] Comment on above: Performed By: #### B MP, HSTROPN, BNP ####[facility] Glureythqx93[address] [place] [address]Dr. Garima Pulliam Urea nitrogen [Mass/Vol] 11.0 mg/dL Normal 7.0-18.0 [facility] Comment on above: Performed By: #### B MP, HSTROPN, BNP ####[facility] Yvcxcqkloy9[address] [place] [address]Dr. Garima Pulliam Urea nitrogen/Creatinine [Mass ratio] 15.9 mg/mg Normal [facility] Comment on above: Performed By: #### B MP, HSTROPN, BNP ####[facility] Dgpyfyeimv8[address] [place] [address]Dr. Garima Pulliam TROPONIN, HIGH SENSITIVITYon 11-20-2022 HSTROP 8.7 pg/mL Normal 4.0-76.1 [facility] Comment on above: Result Comment: CUT- OFF POINTS HAVE BEEN ESTABLISHED BASED ON THE FOURTH UNIVERSAL DEFINITIONS OF MYOCARDIALINFARCTION. THE UPPER REFERENCE LIMIT (URL) OF TROPONIN, DEFINED THE 99TH PERCENTILE OFcTnI DISTRIBUTION IN A REFERENCE POPULATION, HAS BEEN CONFIRMED THE DECISION THRESHOLDFOR OK DIAGNOSIS. Performed By: #### B MP, HSTROPN, BNP ####[facility] [address]iip[address] [place] [address]Dr. Garima Pulliam XR CHEST 1 Von 11-20-2022 XR CHEST 1 V Normal [facility] XR CHEST 1 Von 10-02-2022 XR CHEST 1 V Normal [facility] BNPon 09-29-2022 Natriuretic peptide B (Bld) [Mass/Vol] 107.0 pg/mL Normal <=900.0 [facility] Comment on above: Performed By: #### C MP, BNP, CMADM ####[facility] Wtifgpljqx6[address] [place] [address]Dr. Garima Pulliam CARDIAC NASH ADMITon 022 CK [Catalytic activity/Vol] 190 U/L Normal 39-308 [facility] Comment on above: Performed By: #### C MP, BNP, CMADM ####[facility] Rhakihtkrh[address] [place] [address]Dr. Garima Pulliam CK.MB [Mass/Vol] 11.11 ng/mL Critically high <=3.60 Th e [facility] Comment on above: Performed By: #### C MP, BNP, CMADM ####[facility] Qztnoaiu[address] [place], [place] [address]Dr. Garima Pulliam HSTROP 11.8 pg/mL Normal 4.0-76.1 [facility] Comment on above: Result Comment: CUT- OFF POINTS HAVE BEEN ESTABLISHED BASED ON THE FOURTH UNIVERSAL DEFINITIONS OF MYOCARDIALINFARCTION. THE UPPER REFERENCE LIMIT (URL) OF TROPONIN, DEFINED THE 99TH PERCENTILE OFcTnI DISTRIBUTION IN A REFERENCE POPULATION, HAS BEEN CONFIRMED THE DECISION THRESHOLDFOR OK DIAGNOSIS. Performed By: #### C MP, BNP, CMADM ####[facility] [address]qlpkh[address] [place] [address]Dr. Garima Pulliam DORIS 133 ng/mL Critically high 16-96 [facility] Comment on above: Performed By: #### C MP, BNP, CMADM ####[facility] Nxmldimggu99[address] [place] [address]Dr. Garima Pulliam CBC AUTO DIFFon 09-29-2022 BASO # 0.0 103/ul Normal 0.0-0.1 [facility] Comment on above: Performed By: #### C BC ####[facility] [address]qhizvrrmd4[address] [place] [address]Dr. Garima Pulliam Basophils/100 WBC (Bld) 0.2 % Normal 0.2-2.0 [facility] Comment on above: Performed By: #### C BC ####[facility] Wpzuoeedhj6[address] [place] [address]Dr. Garima Pulliam EO # 0.1 103/ul Normal 0.0-0.7 [facility] Comment on above: Performed By: #### C BC ####[facility] Plkmhhbkmm38[address] [place] [address]Dr. Garima Pulliam Eosinophils/100 WBC (Bld) 1.4 % Normal 0.9-7.0 [facility] Comment on above: Performed By: #### C BC ####[facility] Odznmimgkv[address] [place], [place] [address]Dr. Garima Pulliam Erythrocyte distribution width (RBC) [Ratio] 13.7 % Normal 11.0-15.0 [facility] Comment on above: Performed By: #### C BC ####[facility] [address]zpmexwvlo[address] [place], [place] [address]Dr. Garima Pulliam Hematocrit (Bld) [Volume fraction] 45.4 % Normal 42.0-54.0 [facility] Comment on above: Performed By: #### C BC ####[facility] Ebujcplrxs[address] [place], [place] [address]Dr. Garima Pulliam Hemoglobin (Bld) [Mass/Vol] 14.8 g/dL Normal 14.0-18.0 [facility] Comment on above: Performed By: #### C BC ####[facility] Euaocdxixu[address] [place], [place] [address]Dr. Garima Heraclio IG # 0.04 10e3/ul Critically high 0.00-0.03 [facility] Comment on above: Performed By: #### C BC ####[facility] Neaqkyrual[address] [place], [place] [address]Dr. Chapisrenu Pulliam IG % 0.5 % Normal 0.0-0.5 [facility] Comment on above: Performed By: #### C BC ####[facility] Wbbzgzgavk[address] [place], [place] [address]DrAdalberto Pulliam LYMPH # 1.1 103/ul Critically low 1.2-3.8 [facility] Comment on above: Performed By: #### C BC ####[facility] Bysutjnglz84[address] [place] [address]DrAdalberto Pulliam Lymphocytes/100 WBC (Bld) 12.7 % Critically low 20.5-60.0 [facility] Comment on above: Performed By: #### C BC ####[facility] Penumtedld[address] [place] [id number] Pulliam MANUAL DIFF REQ NO Normal [facility] Comment on above: Performed By: #### C BC ####[facility] Jixmxnhmct8954 [place] [id number] Pulliam MCH (RBC) [Entitic mass] 30.0 pg Normal 25.9-34.0 [facility] Comment on above: Performed By: #### C BC ####[facility] Asvppyxbnr[address] [place], [place] [address]Dr. Garima Pulliam MCHC (RBC) [Mass/Vol] 32.6 g/dL Normal 29.9-35.2 [facility] Comment on above: Performed By: #### C BC ####[facility] Ibksftjoeu[address] [place], [place] [address]DrAdalberto Pulliam MCV (RBC) [Entitic vol] 91.9 fL Normal 80.0-94.0 [facility] Comment on above: Performed By: #### C BC ####[facility] Kmhcssrjez[address] [place] [address]DrAdalberto Pulliam MONO # 0.4 103/ul Normal 0.3-0.8 [facility] Comment on above: Performed By: #### C BC ####[facility] L[address]lleghyp[address] [place], [place] [address]DrAdalberto Pulliam Monocytes/100 WBC (Bld) 4.8 % Normal 1.7-12.0 [facility] Comment on above: Performed By: #### C BC ####[facility] [address]zsp[address] [place], [place] [address]DrAdalberto Pulliam NEUT # 7.1 103/ul Critically high 1.4-6.5 [facility] Comment on above: Performed By: #### C BC ####[facility] Xhjtfskcsx1882 [place] [id number]. Garima Pulliam Neutrophils/100 WBC (Bld) 80.4 % Critically high 43.0-75.0 [facility] Comment on above: Performed By: #### C BC ####[facility] Jhhgvsfibd0787 [place] [id number]. Garima Pulliam Platelet mean volume (Bld) [Entitic vol] 9.1 fL Critically low 9.5-13.5 [facility] Comment on above: Performed By: #### C BC ####[facility] Oopekwrapz2270 [place] [id number]. Garima Pulliam PLT 200 103/ul Normal 150-450 [facility] Comment on above: Performed By: #### C BC ####[facility] Fmmtcfsbrd2882 [place] [id number]. Garima Pulliam RBC 4.94 106/ul Normal 4.70-6.10 [facility] Comment on above: Performed By: #### C BC ####[facility] Njguouzhpg4085 [place] [id number]. Garima Pulliam WBC 8.9 103/ul Normal 4.0-11.0 [facility] Comment on above: Performed By: #### C BC ####[facility] Vehuuxwhqa7[address] [place] [id number]. Garima Pulliam [facility]-19 [facility] ([facility])on SARS-CoV-2 (COVID-19) RNA MARIE+probe Ql (Unsp spec) Not detected Normal NOT DETECTED [facility] Comment on above: Result Comment: When diagnostic [...] for this test is supported by the [place] of Health and Human Service's declaration that [...] be used). Performed By: #### C VDTBH ####[facility] Mgilgkjvsk[address] [place] [address]Dr. Garima Pulliam LACTATE/LACTIC ACIDon 2021 Lactate [Moles/Vol] 1.7 mmol/L Normal 0.4-1.9 [facility] Comment on above: Performed By: #### L ACT ####[facility] Ejlcqcfrqo[address] [place], [place] [address]Dr. Garima Pulliam PROF 14(COMP METB)on 022 Albumin [Mass/Vol] 3.8 g/dL Normal 3.4-5.0 [facility] Comment on above: Performed By: #### C MP, BNP, CMADM ####[facility] Gvlbyqcqlz9782 [place] [address]Dr. Garima Pulliam Albumin/Globulin [Mass ratio] 1.5 {ratio} Normal [facility] Comment on above: Performed By: #### C MP, BNP, CMADM ####[facility] Zflkcqzgro5859 [place] [address]Dr. Garima Pulliam ALP [Catalytic activity/Vol] 62 U/L Normal 46-116 [facility] Comment on above: Performed By: #### C MP, BNP, CMADM ####[facility] Jfprprojrt2147 [place] [address]Dr. Garima Pulliam ALT [Catalytic activity/Vol] 37 U/L Normal 16-63 [facility] Comment on above: Performed By: #### C MP, BNP, CMADM ####[facility] Cvgtwqnhow5865 [place] [address]Dr. Garima Pulliam Anion gap [Moles/Vol] 8.0 mmol/L Normal [facility] Comment on above: Performed By: #### C MP, BNP, CMADM ####[facility] Mcljkdzcff1463 [place] [address]Dr. Garima Pulliam AST [Catalytic activity/Vol] 20 U/L Normal 15-37 [facility] Comment on above: Performed By: #### C MP, BNP, CMADM ####[facility] Ahshfvnkhg76[address] [place] [address]Dr. Garima Pulliam Bilirubin [Mass/Vol] 0.6 mg/dL Normal 0.2-1.0 [facility] Comment on above: Performed By: #### C MP, BNP, CMADM ####[facility] Msxwrdifpe[address] [place], [place] [address]Dr. Garima Pulliam Calcium [Mass/Vol] 9.1 mg/dL Normal 8.5-10.1 The [facility] Comment on above: Performed By: #### C MP, BNP, CMADM ####[facility] M[address]phjciuj[address] [place], [place] [address]Dr. Garima Pulliam Chloride [Moles/Vol] 103 mmol/L Normal 98-107 [facility] Comment on above: Performed By: #### C MP, BNP, CMADM ####[facility] Jjzcnmeplo2261 [place] [address]Dr. Garima Pulliam CO2 [Moles/Vol] 31.8 mmol/L Normal 21.0-32.0 The [facility] Comment on above: Performed By: #### C MP, BNP, CMADM ####[facility] [address]hlxxqqx[address] [place], [place] [address]Dr. Garima Pulliam Creatinine [Mass/Vol] 0.63 mg/dL Critically low 0.70-1.30 [facility] Comment on above: Performed By: #### C MP, BNP, CMADM ####[facility] Rulgfqyvwt94[address] [place] [address]Dr. Garima Pulliam EGFR-AF MALAGASY >60 Normal >=60 The [facility] Comment on above: Performed By: #### C MP, BNP, CMADM ####[facility] Orealmyjbe86[address] [place] [id number]. Garima Pulliam EGFR-NON AF MALAGASY >60 Normal >=60 [facility] Comment on above: Performed By: #### C MP, BNP, CMADM ####[facility] Imxzjylibm9535 [place] [address]Dr. Garima Pulliam Globulin (S) [Mass/Vol] 2.6 g/dL Normal [facility] Comment on above: Performed By: #### C MP, BNP, CMADM ####[facility] Sonincrtpk4059 [place] [address]Dr. Garima Pulliam Glucose [Mass/Vol] 103 mg/dL Normal 74-106 The [facility] Comment on above: Performed By: #### C MP, BNP, CMADM ####[facility] Rzoljcevin37[address] [place] [address]Dr. Garima Pulliam Potassium [Moles/Vol] 3.8 mmol/L Normal 3.5-5.1 [facility] Comment on above: Performed By: #### C MP, BNP, CMADM ####[facility] Cfbkxcbmsm2760 [place] [address]Dr. Garima Pulliam Protein [Mass/Vol] 6.4 g/dL Normal 6.4-8.2 The [facility] Comment on above: Performed By: #### C MP, BNP, CMADM ####[facility] Hnnvxtwkrf7785 [place] [address]Dr. Garima Pulliam Sodium [Moles/Vol] 139 mmol/L Normal 136-145 The [facility] Comment on above: Performed By: #### C MP, BNP, CMADM ####[facility] Sxqgcsubnb6319 [place] [address]Dr. Garima Pulliam Urea nitrogen [Mass/Vol] 7.0 mg/dL Normal 7.0-18.0 [facility] Comment on above: Performed By: #### C MP, BNP, CMADM ####[facility] Ngjbdqqkff9949 [place] [address]Dr. Garima Pulliam Urea nitrogen/Creatinine [Mass ratio] 11.1 mg/mg Normal [facility] Comment on above: Performed By: #### C MP, BNP, CMADM ####[facility] Jqnveupwiz28[address] [place] [address]Dr. Garima Heraclio PROTIMEon 09-29-2022 INR Coag (PPP) [Relative time] 1.14 {INR} Normal [facility] Comment on above: Performed By: #### P T, PTT ####[facility] Qfimrozdoa[address] [place], [place] [address]Dr. Garima Pulliam INR GUIDELINES SEE BELOW Normal [facility] Comment on above: Result Comment: WESLEY RED INR: 2.0 - 3.0 CONDITIONS NOT LISTED BELOW 2.5 - 3.5 FOR PROSTHETIC HEART VALVE REPLACEMENT 2.5 - 3.5 RECURRENT THROMBOSIS Performed By: #### P T, PTT ####[facility] Xubttcvyvi[address] [place], [place] [address]Dr. Garima Pulliam PT Coag (PPP) [Time] 12.2 s Critically high 9.0-11.6 [facility] Comment on above: Performed By: #### P T, PTT ####[facility] Eidkmxkvoa[address] [place], [place] [address]Dr. Garima Pulliam PTTon 09-29-2022 aPTT Coag (Bld) [Time] 29.3 s Normal 22.3-36.2 [facility] Comment on above: Performed By: #### P T, PTT ####[facility] [address]ksdzjdsgw[address] [place], [place] [address]Dr. Garima Pulliam XR CHEST 1 Von 09-29-2022 XR CHEST 1 V Normal [facility] CBC AUTO DIFFon 09-26-2022 BASO # 0.0 103/ul Normal 0.0-0.1 [facility] Comment on above: Performed By: #### C BC ####[facility] R[address]vdljygv[address] [place], [place] [address]Dr. Garima Pulliam Basophils/100 WBC (Bld) 0.2 % Normal 0.2-2.0 [facility] Comment on above: Performed By: #### C BC ####[facility] Gpglnftrhd9160 [place] [address]Dr. Garima Pulliam EO # 0.1 103/ul Normal 0.0-0.7 [facility] Comment on above: Performed By: #### C BC ####[facility] Gmkatjclng4351 [place] [address]Dr. Garima Pulliam Eosinophils/100 WBC (Bld) 1.0 % Normal 0.9-7.0 [facility] Comment on above: Performed By: #### C BC ####[facility] X[address]jt[address]rm[address] [place], [place] [address]Dr. Garima Pulliam Erythrocyte distribution width (RBC) [Ratio] 13.4 % Normal 11.0-15.0 [facility] Comment on above: Performed By: #### C BC ####[facility] Itpzxakrdm[address] [place], [place] [address]Dr. Garima Pulliam Hematocrit (Bld) [Volume fraction] 46.3 % Normal 42.0-54.0 [facility] Comment on above: Performed By: #### C BC ####[facility] [address]prihuqs[address] [place], [place] [address]Dr. Garima Pulliam Hemoglobin (Bld) [Mass/Vol] 15.3 g/dL Normal 14.0-18.0 [facility] Comment on above: Performed By: #### C BC ####[facility] Zkwfdbrqgs[address] [place], [place] [address]Dr. Garima Pulliam IG # 0.05 10e3/ul Critically high 0.00-0.03 The [facility] [place] [facility] Comment on above: Performed By: #### C BC ####[facility] Jtyivsjphj[address] [place], [place] [address]Dr. Garima Pulliam IG % 0.4 % Normal 0.0-0.5 [facility] Comment on above: Performed By: #### C BC ####[facility] [address]zijnlypdd[address] [place], [place] [address]Dr. Garima Pulliam LYMPH # 1.7 103/ul Normal 1.2-3.8 [facility] Comment on above: Performed By: #### C BC ####[facility] Znootvwdah54[address] [place] [address]Dr. Chapisrenu Pulliam Lymphocytes/100 WBC (Bld) 12.7 % Critically low 20.5-60.0 [facility] Comment on above: Performed By: #### C BC ####[facility] Lpcqlykwvf[address] [place] [address]Dr. Garima Pulliam MANUAL DIFF REQ NO Normal [facility] Comment on above: Performed By: #### C BC ####[facility] Jjsbwztswj9178 [place] [address]Dr. Chapisrenu Pulliam MCH (RBC) [Entitic mass] 30.1 pg Normal 25.9-34.0 [facility] Comment on above: Performed By: #### C BC ####[facility] T[address]krmtwqv[address] [place], [place] [address]Dr. Garima Pulliam MCHC (RBC) [Mass/Vol] 33.0 g/dL Normal 29.9-35.2 [facility] Comment on above: Performed By: #### C BC ####[facility] [address]rgmgbyf[address] [place], [place] [address]Dr. Garima Pulliam MCV (RBC) [Entitic vol] 91.1 fL Normal 80.0-94.0 [facility] Comment on above: Performed By: #### C BC ####[facility] [address]hrfl[address] [place], [place] [address]Dr. Garima Pulliam MONO # 0.9 103/ul Critically high 0.3-0.8 [facility] Comment on above: Performed By: #### C BC ####[facility] [address]xvxxmdi[address] [place], [place] [address]Dr. Garima Pulliam Monocytes/100 WBC (Bld) 7.0 % Normal 1.7-12.0 [facility] Comment on above: Performed By: #### C BC ####[facility] Domapyektp558594 [address] [place], [place] [address]Dr. Garima Pulliam NEUT # 10.4 103/ul Critically high 1.4-6.5 [facility] Comment on above: Performed By: #### C BC ####[facility] [address] [place] [address]Dr. Garima Pulliam Neutrophils/100 WBC (Bld) 78.7 % Critically high 43.0-75.0 [facility] Comment on above: Performed By: #### C BC ####[facility] Uskghvzyys[address] [place] [address]Dr. Garima Pulliam Platelet mean volume (Bld) [Entitic vol] 8.9 fL Critically low 9.5-13.5 [facility] Comment on above: Performed By: #### C BC ####[facility] Dibiuudtfz[address] [place] [address]Dr. Garima Pulliam PLT 195 103/ul Normal 150-450 [facility] Comment on above: Performed By: #### C BC ####[facility] Rxjwgduxmf05[address] [place] [address]Dr. Garima Pulliam RBC 5.08 106/ul Normal 4.70-6.10 [facility] Comment on above: Performed By: #### C BC ####[facility] Tfljgksjdj[address] [place] [address]Dr. Garima Pulliam WBC 13.2 103/ul Critically high 4.0-11.0 [facility] Comment on above: Performed By: #### C BC ####[facility] Sgcmcxedyk33[address] [place] [address]Dr. Garima Pulliam PROF 14(COMP METB)on 022 Albumin [Mass/Vol] 3.5 g/dL Normal 3.4-5.0 [facility] Comment on above: Performed By: #### C DAVID HSTROPN ####[facility] Olhzsbolld[address] [place] [id number]. Garima Pulliam Albumin/Globulin [Mass ratio] 1.2 {ratio} Normal [facility] Comment on above: Performed By: #### C DAVID HSTROPN ####[facility] Igyyyxuhph[address] [place] [id number]. Garima Pulliam ALP [Catalytic activity/Vol] 71 U/L Normal 46-116 [facility] Comment on above: Performed By: #### C MP, HSTROPN ####[facility] Mqenuhvmqe[address] [place] [address]Dr. Garima Pulliam ALT [Catalytic activity/Vol] 37 U/L Normal 16-63 [facility] Comment on above: Performed By: #### C MP, HSTROPN ####[facility] Tfjrpfafsx8808 [place] [address]Dr. Garima Pulliam Anion gap [Moles/Vol] 4.8 mmol/L Normal [facility] Comment on above: Performed By: #### C MP, HSTROPN ####[facility] Caxftqlyww9[address] [place] [address]Dr. Garima Pulliam AST [Catalytic activity/Vol] 21 U/L Normal 15-37 [facility] Comment on above: Performed By: #### C DAVID, HSTROPN ####[facility] Twfupkihul[address] [place], [place] [address]Dr. Garima Pulliam Bilirubin [Mass/Vol] 0.3 mg/dL Normal 0.2-1.0 [facility] Comment on above: Performed By: #### C DAVID, HSTROPN ####[facility] Cphbmcibcd[address] [place], [place] [address]Dr. Garima Pulliam Calcium [Mass/Vol] 8.9 mg/dL Normal 8.5-10.1 [facility] Comment on above: Performed By: #### C DAVID, HSTROPN ####[facility] Ydbxyljorj9[address] [place] [address]Dr. Garima Pulliam Chloride [Moles/Vol] 106 mmol/L Normal 98-107 [facility] Comment on above: Performed By: #### C DAVID, HSTROPN ####[facility] Jwvoxmph[address] [place], [place] [address]Dr. Garima Pulliam CO2 [Moles/Vol] 29.8 mmol/L Normal 21.0-32.0 [facility] Comment on above: Performed By: #### C MP, HSTROPN ####[facility] Xwlkhbbzhc[address] [place], [place] [address]Dr. Garima Pulliam Creatinine [Mass/Vol] 0.68 mg/dL Critically low 0.70-1.30 [facility] Comment on above: Performed By: #### C DAVID, HSTROPN ####[facility] Skiqcycyed4[address] [place] [address]Dr. Garima Pulliam EGFR-AF MALAGASY >60 Normal >=60 [facility] Comment on above: Performed By: #### C DAVID, HSTROPN ####[facility] Zrmhaxhbod2558 [place] [address]Dr. Garima Pulliam EGFR-NON AF MALAGASY >60 Normal >=60 [facility] Comment on above: Performed By: #### C DAVID, HSTROPN ####[facility] Pjlfjnlmun83[address] [place] [address]Dr. Garima Pulliam Globulin (S) [Mass/Vol] 2.8 g/dL Normal [facility] Comment on above: Performed By: #### C DAVID, HSTROPN ####[facility] Cmzfulrozf9967 [place] [address]Dr. Garima Pulliam Glucose [Mass/Vol] 133 mg/dL Critically high 74-106 [facility] Comment on above: Performed By: #### C DAVID, HSTROPN ####[facility] Ohptyasiwe4975 [place] [address]Dr. Garima Pulliam Potassium [Moles/Vol] 3.6 mmol/L Normal 3.5-5.1 [facility] Comment on above: Performed By: #### C DAVID, HSTROPN ####[facility] Kkejhdvzys30[address] [place] [address]Dr. Garima Pulliam Protein [Mass/Vol] 6.3 g/dL Critically low 6.4-8.2 [facility] Comment on above: Performed By: #### C DAVID, HSTROPN ####[facility] Yjaaaaiqua8244 [place] [address]Dr. Garima Pulliam Sodium [Moles/Vol] 137 mmol/L Normal 136-145 [facility] Comment on above: Performed By: #### C DAVID, HSTROPN ####[facility] Bwctfluqmc7241 [place] [id number]. Garima Pulliam Urea nitrogen [Mass/Vol] 15.0 mg/dL Normal 7.0-18.0 [facility] Comment on above: Performed By: #### C MP, HSTROPN ####[facility] Nkoaotzotx8391 [place] [id number]. Chapisrenu Pulliam Urea nitrogen/Creatinine [Mass ratio] 22.1 mg/mg Normal [facility] Comment on above: Performed By: #### C MP, HSTROPN ####[facility] Fkaiovcyng7424 [place] [id number]. Garima Heraclio TROPONIN, HIGH SENSITIVITYon 09-26-2022 HSTROP 12.8 pg/mL Normal 4.0-76.1 [facility] Comment on above: Result Comment: CUT- OFF POINTS HAVE BEEN ESTABLISHED BASED ON THE FOURTH UNIVERSAL DEFINITIONS OF MYOCARDIALINFARCTION. THE UPPER REFERENCE LIMIT (URL) OF TROPONIN, DEFINED THE 99TH PERCENTILE OFcTnI DISTRIBUTION IN A REFERENCE POPULATION, HAS BEEN CONFIRMED THE DECISION THRESHOLDFOR OK DIAGNOSIS. Performed By: #### C MP, HSTROPN ####[facility] Iaguarozis[address] [place] [address]Dr. Garima Heraclio XR CHEST 1 Von 09-26-2022 XR CHEST 1 V Normal [facility] XR CHEST 1 Von 09-16-2022 XR CHEST 1 V Normal [facility] CBC AUTO DIFFon 09-15-2022 BASO # 0.0 103/ul Normal 0.0-0.1 [facility] Comment on above: Performed By: #### C BC ####[facility] Fbrkdwoprn6956 [place] [id number]. Garima Heraclio Basophils/100 WBC (Bld) 0.1 % Critically low 0.2-2.0 [facility] Comment on above: Performed By: #### C BC ####[facility] Ovdrjuexua8489 [place] [id number]. Chapisrenu Pulliam EO # 0.0 103/ul Normal 0.0-0.7 [facility] Comment on above: Performed By: #### C BC ####[facility] Yohdryxfok9955 [place] [id number]. Garima Pulliam Eosinophils/100 WBC (Bld) 0.1 % Critically low 0.9-7.0 [facility] Comment on above: Performed By: #### C BC ####[facility] Lniexerbpw9[address] [place] [address]Dr. Garima Pulliam Erythrocyte distribution width (RBC) [Ratio] 14.1 % Normal 11.0-15.0 [facility] Comment on above: Performed By: #### C BC ####[facility] Eorgvfbxzg[address] [place], [place] [address]Dr. Garima Pulliam Hematocrit (Bld) [Volume fraction] 46.1 % Normal 42.0-54.0 [facility] Comment on above: Performed By: #### C BC ####[facility] Fmwdwrjgel[address] [place], [place] [address]Dr. Garima Pulliam Hemoglobin (Bld) [Mass/Vol] 15.0 g/dL Normal 14.0-18.0 [facility] Comment on above: Performed By: #### C BC ####[facility] Rwjbifqzom[address] [place], [place] [address]Dr. Garima Pulliam IG # 0.03 10e3/ul Normal 0.00-0.03 [facility] Comment on above: Performed By: #### C BC ####[facility] Ebgqysaazx[address] [place], [place] [address]Dr. Garima Pulliam IG % 0.3 % Normal 0.0-0.5 [facility] Comment on above: Performed By: #### C BC ####[facility] Zexrcpjapo[address] [place], [place] [address]Dr. Garima Pulliam LYMPH # 0.6 103/ul Critically low 1.2-3.8 [facility] Comment on above: Performed By: #### C BC ####[facility] Xohbhsijih06[address] [place], [place] [address]Dr. Garima Pulliam Lymphocytes/100 WBC (Bld) 5.8 % Critically low 20.5-60.0 [facility] Comment on above: Performed By: #### C BC ####[facility] Rkvvdpezdu0274 [place] [id number]. Garima Pulliam MANUAL DIFF REQ NO Normal [facility] Comment on above: Performed By: #### C BC ####[facility] Lfxkdsemqc9307 [place] [id number]. Garima Pulliam MCH (RBC) [Entitic mass] 30.2 pg Normal 25.9-34.0 [facility] Comment on above: Performed By: #### C BC ####[facility] Sqbfwrbsuj9641 [place] [id number]. Garima Pulliam MCHC (RBC) [Mass/Vol] 32.5 g/dL Normal 29.9-35.2 [facility] Comment on above: Performed By: #### C BC ####[facility] Khguytrakw[address] [place], [place] [address]Dr. Garima Pulliam MCV (RBC) [Entitic vol] 92.8 fL Normal 80.0-94.0 [facility] Comment on above: Performed By: #### C BC ####[facility] Xzuurczawc[address] [place], [place] [id number]. Garima Pulliam MONO # 0.3 103/ul Normal 0.3-0.8 [facility] Comment on above: Performed By: #### C BC ####[facility] Mhowbspdcb0514 [place] [address]Dr. Garima Pulliam Monocytes/100 WBC (Bld) 3.2 % Normal 1.7-12.0 [facility] Comment on above: Performed By: #### C BC ####[facility] Ellcorsogl[address] [place], [place] [address]Dr. Garima Pulliam NEUT # 9.8 103/ul Critically high 1.4-6.5 [facility] Comment on above: Performed By: #### C BC ####[facility] Ofwwpdefdt[address] [place], [place] [id number]. Garima Pulliam Neutrophils/100 WBC (Bld) 90.5 % Critically high 43.0-75.0 [facility] Comment on above: Performed By: #### C BC ####[facility] Poipuwbqrg9076 [place] [address]Dr. Garima Pulliam Platelet mean volume (Bld) [Entitic vol] 9.4 fL Critically low 9.5-13.5 [facility] Comment on above: Performed By: #### C BC ####[facility] Sojgwgetly1225 [place] [address]Dr. Garima Pulliam PLT 208 103/ul Normal 150-450 [facility] Comment on above: Performed By: #### C BC ####[facility] Uxkcxorgga[address] [place], [place] [address]Dr. Garima Pulliam RBC 4.97 106/ul Normal 4.70-6.10 [facility] Comment on above: Performed By: #### C BC ####[facility] Lbxeemluzr[address] [place], [place] [address]Dr. Garima Pulliam WBC 10.8 103/ul Normal 4.0-11.0 [facility] Comment on above: Performed By: #### C BC ####[facility] H[address]rtkoven[address] [place], [place] [address]Dr. Garima Pulliam PROF 14(COMP METB)on 022 Albumin [Mass/Vol] 4.0 g/dL Normal 3.4-5.0 [facility] Comment on above: Performed By: #### C MP ####[facility] Idyvgtwfvm[address] [place], [place] [address]Dr. Garima Pulliam Albumin/Globulin [Mass ratio] 1.5 {ratio} Normal [facility] Comment on above: Performed By: #### C MP ####[facility] Glivzqafjo[address] [place], [place] [address]Dr. Garima Pulliam ALP [Catalytic activity/Vol] 73 U/L Normal 46-116 [facility] Comment on above: Performed By: #### C MP ####[facility] Zszpmvsjht[address] [place], [place] [address]Dr. Garima Pulliam ALT [Catalytic activity/Vol] 42 U/L Normal 16-63 [facility] Comment on above: Performed By: #### C MP ####[facility] Gdvbiprjux3496 [place] [id number]. Garima Pulliam Anion gap [Moles/Vol] 9.1 mmol/L Normal [facility] Comment on above: Performed By: #### C MP ####[facility] Aonwvrxpea0487 [place] [id number]. Garima Pulliam AST [Catalytic activity/Vol] 28 U/L Normal 15-37 [facility] Comment on above: Performed By: #### C MP ####[facility] Hqamvjgtai0146 [place] [id number]. Garima Pulliam Bilirubin [Mass/Vol] 0.6 mg/dL Normal 0.2-1.0 [facility] Comment on above: Performed By: #### C MP ####[facility] Awpmvfiktj4973 [place] [address]Dr. Garima Pulliam Calcium [Mass/Vol] 8.6 mg/dL Normal 8.5-10.1 [facility] Comment on above: Performed By: #### C MP ####[facility] Jnmnfdhzzy8510 [place] [address]Dr. Garima Pulliam Chloride [Moles/Vol] 105 mmol/L Normal 98-107 [facility] Comment on above: Performed By: #### C MP ####[facility] Puwdpsivwo7869 [place] [id number]. Garima Pulliam CO2 [Moles/Vol] 28.5 mmol/L Normal 21.0-32.0 [facility] Comment on above: Performed By: #### C MP ####[facility] Kmxndnbrvr7376 [place] [phone]. Garima Pulliam Creatinine [Mass/Vol] 0.78 mg/dL Normal 0.70-1.30 [facility] Comment on above: Performed By: #### C MP ####[facility] Zeupdbrvrs1815 [place] [id number]. Garima Heraclio EGFR-AF MALAGASY >60 Normal >=60 [facility] Comment on above: Performed By: #### C MP ####[facility] Xviqyrrpun4682 [place] [id number]. Garima Pulliam EGFR-NON AF MALAGASY >60 Normal >=60 [facility] Comment on above: Performed By: #### C MP ####[facility] Lixmluzzar19[address] [place] [address]Dr. Garima Pulliam Globulin (S) [Mass/Vol] 2.7 g/dL Normal [facility] Comment on above: Performed By: #### C MP ####[facility] Wfdytajbfs1557 [place] [address]Dr. Garima Pulliam Glucose [Mass/Vol] 220 mg/dL Critically high 74-106 [facility] Comment on above: Performed By: #### C MP ####[facility] [address]zujppwose[address] [place], [place] [address]Dr. Garima Pulliam Potassium [Moles/Vol] 3.6 mmol/L Normal 3.5-5.1 [facility] Comment on above: Performed By: #### C MP ####[facility] Mwmfktysyu[address] [place], [place] [address]Dr. Garima Pulliam Protein [Mass/Vol] 6.7 g/dL Normal 6.4-8.2 [facility] Comment on above: Performed By: #### C MP ####[facility] Iydtvmwank[address] [place], [place] [address]Dr. Garima Pulliam Sodium [Moles/Vol] 139 mmol/L Normal 136-145 [facility] Comment on above: Performed By: #### C MP ####[facility] Yxndnfzhqm[address] [place], [place] [address]Dr. Garima Pulliam Urea nitrogen [Mass/Vol] 11.0 mg/dL Normal 7.0-18.0 [facility] Comment on above: Performed By: #### C MP ####[facility] Nmoaymkuof[address] [place], [place] [address]Dr. Garima Pulliam Urea nitrogen/Creatinine [Mass ratio] 14.1 mg/mg Normal [facility] Comment on above: Performed By: #### C MP ####[facility] Lcucedgsbm[address] [place], [place] [address]Dr. Garima Pulliam CARDIAC NASH 3-6on 2 CK [Catalytic activity/Vol] 240 U/L Normal 39-308 [facility] Comment on above: Performed By: #### C MREP ####[facility] Slyzuyrgta2570 [place], [place] [address]Wo. Garima Pulliam CK.MB [Mass/Vol] 10.38 ng/mL Critically high <=3.60 [facility] Comment on above: Performed By: #### C MREP ####[facility] Uzceobtsqs2527 [place] [id number]. Garima Pulliam HSTROP 18.5 pg/mL Normal 4.0-76.1 [facility] Comment on above: Result Comment: CUT- OFF POINTS HAVE BEEN ESTABLISHED BASED ON THE FOURTH UNIVERSAL DEFINITIONS OF MYOCARDIALINFARCTION. THE UPPER REFERENCE LIMIT (URL) OF TROPONIN, DEFINED THE 99TH PERCENTILE OFcTnI DISTRIBUTION IN A REFERENCE POPULATION, HAS BEEN CONFIRMED THE DECISION THRESHOLDFOR OK DIAGNOSIS. Performed By: #### C MREP ####[facility] Kcijofpzhg9233 [place] [phone]. Garima Pulliam CK [Catalytic activity/Vol] 257 U/L Normal 39-308 [facility] Comment on above: Performed By: #### C MREP ####[facility] Beqwtyuzxo0612 [place] [id number]. Garima Pulliam CK.MB [Mass/Vol] 9.89 ng/mL Critically high <=3.60 [facility] Comment on above: Performed By: #### C MREP ####[facility] Yvqujjktgx7437 [place] [id number]. Garima Pulliam HSTROP 16.9 pg/mL Normal 4.0-76.1 [facility] Comment on above: Result Comment: CUT- OFF POINTS HAVE BEEN ESTABLISHED BASED ON THE FOURTH UNIVERSAL DEFINITIONS OF MYOCARDIALINFARCTION. THE UPPER REFERENCE LIMIT (URL) OF TROPONIN, DEFINED THE 99TH PERCENTILE OFcTnI DISTRIBUTION IN A REFERENCE POPULATION, HAS BEEN CONFIRMED THE DECISION THRESHOLDFOR OK DIAGNOSIS. Performed By: #### C MREP ####[facility] [address]wtedplzfm[address] [place], [place] [address]Dr. Garima Pulliam CBC AUTO DIFFon 09-13-2022 BASO # 0.0 103/ul Normal 0.0-0.1 [facility] Comment on above: Performed By: #### C BC ####[facility] Gytgvavasi[address] [place], [place] [address]Dr. Garima Heraclio Basophils/100 WBC (Bld) 0.1 % Critically low 0.2-2.0 [facility] Comment on above: Performed By: #### C BC ####[facility] Tabbrftejs[address] [place], [place] [address]Dr. Garima Pulliam EO # 0.0 103/ul Normal 0.0-0.7 [facility] Comment on above: Performed By: #### C BC ####[facility] Pjghycznyl[address] [place], [place] [address]Dr. Chapisrenu Pulliam Eosinophils/100 WBC (Bld) 0.0 % Critically low 0.9-7.0 [facility] Comment on above: Performed By: #### C BC ####[facility] Mzykoziofz[address] [place], [place] [address]Dr. Garima Pulliam Erythrocyte distribution width (RBC) [Ratio] 13.6 % Normal 11.0-15.0 [facility] Comment on above: Performed By: #### C BC ####[facility] Adojrmwfwt[address] [place], [place] [address]Dr. Garima Pulliam Hematocrit (Bld) [Volume fraction] 48.2 % Normal 42.0-54.0 [facility] Comment on above: Performed By: #### C BC ####[facility] Lumorifjgy[address] [place], [place] [address]Dr. Garima Pulliam Hemoglobin (Bld) [Mass/Vol] 16.0 g/dL Normal 14.0-18.0 [facility] Comment on above: Performed By: #### C BC ####[facility] Yrqqifpyib[address] [place], [place] [address]Dr. Garima Pulliam IG # 0.02 10e3/ul Normal 0.00-0.03 [facility] Comment on above: Performed By: #### C BC ####[facility] Adbictkxex8030 [place] [id number]. Garima Pulliam IG % 0.3 % Normal 0.0-0.5 [facility] Comment on above: Performed By: #### C BC ####[facility] Vnawnkrnjz8458 [place] [id number]. Garima Pulliam LYMPH # 0.5 103/ul Critically low 1.2-3.8 [facility] Comment on above: Performed By: #### C BC ####[facility] Sospltywlp7396 [place] [id number]. Chapisrenu Pulliam Lymphocytes/100 WBC (Bld) 7.7 % Critically low 20.5-60.0 [facility] Comment on above: Performed By: #### C BC ####[facility] Ecvvfvwcpl9[address] [place] [address]Dr. Garima Pulliam MANUAL DIFF REQ NO Normal [facility] Comment on above: Performed By: #### C BC ####[facility] Lpbddmmwbk0917 [place] [id number]. Garima Pulliam MCH (RBC) [Entitic mass] 30.6 pg Normal 25.9-34.0 [facility] Comment on above: Performed By: #### C BC ####[facility] Xbawpnpmun7310 [place] [id number]. Garima Pulliam MCHC (RBC) [Mass/Vol] 33.2 g/dL Normal 29.9-35.2 [facility] Comment on above: Performed By: #### C BC ####[facility] Tyiyscfxmt7488 [place] [id number]. Garima Pulliam MCV (RBC) [Entitic vol] 92.2 fL Normal 80.0-94.0 [facility] Comment on above: Performed By: #### C BC ####[facility] Syigckiihu0902 [place] [id number]. Garima Pulliam MONO # 0.0 103/ul Critically low 0.3-0.8 [facility] Comment on above: Performed By: #### C BC ####[facility] Vlgnpdyilb0715 [place] [id number]. Garima Pulliam Monocytes/100 WBC (Bld) 0.4 % Critically low 1.7-12.0 [facility] Comment on above: Performed By: #### C BC ####[facility] Bdpiusteoy9148 [place] [id number]. Garima Pulliam NEUT # 6.2 103/ul Normal 1.4-6.5 [facility] Comment on above: Performed By: #### C BC ####[facility] Ujtlqbcqdv7205 [place] [address]Dr. Garima Pulliam Neutrophils/100 WBC (Bld) 91.5 % Critically high 43.0-75.0 [facility] Comment on above: Performed By: #### C BC ####[facility] Njnkbekerz4086 [place] [address]Dr. Garima Pulliam Platelet mean volume (Bld) [Entitic vol] 8.7 fL Critically low 9.5-13.5 [facility] Comment on above: Performed By: #### C BC ####[facility] B[address]meuwdak[address] [place], [place] [address]Dr. Garima Pulliam PLT 179 103/ul Normal 150-450 [facility] Comment on above: Performed By: #### C BC ####[facility] Hwgsptcnku6471 [place] [address]Dr. Garima Pulliam RBC 5.23 106/ul Normal 4.70-6.10 [facility] Comment on above: Performed By: #### C BC ####[facility] Swxybvzamu6444 [place] [id number]. Garima Pulliam WBC 6.7 103/ul Normal 4.0-11.0 [facility] Comment on above: Performed By: #### C BC ####[facility] Pnygpdespz[address] [place], [place] [address]DrAdalberto Garima Heraclio PROF CHEM 8 (BAS METB)on Anion gap [Moles/Vol] 12.1 mmol/L Normal [facility] Comment on above: Performed By: #### B MP ####[facility] Zbtncuebor1313 [place] [address]Dr. Garima Pulliam Calcium [Mass/Vol] 8.7 mg/dL Normal 8.5-10.1 [facility] Comment on above: Performed By: #### B MP ####[facility] Nqtzeimszb0238 [place] [address]Dr. Garima Pulliam Chloride [Moles/Vol] 105 mmol/L Normal 98-107 [facility] Comment on above: Performed By: #### B MP ####[facility] Ajruuwbgqy1873 [place] [address]Dr. Garima Pulliam CO2 [Moles/Vol] 25.5 mmol/L Normal 21.0-32.0 [facility] Comment on above: Performed By: #### B MP ####[facility] [address]fpkt[address] [place], [place] [address]Dr. Garima Pulliam Creatinine [Mass/Vol] 0.63 mg/dL Critically low 0.70-1.30 [facility] Comment on above: Performed By: #### B MP ####[facility] Xsfztpbdhk9984 [place] [address]Dr. Garima Pulliam EGFR-AF MALAGASY >60 Normal >=60 [facility] Comment on above: Performed By: #### B MP ####[facility] Mbykbkbfrw3897 [place] [address]Dr. Garima Pulliam EGFR-NON AF MALAGASY >60 Normal >=60 [facility] Comment on above: Performed By: #### B MP ####[facility] Hdqiarurnm4976 [place] [address]Dr. Garima Pulliam Glucose [Mass/Vol] 162 mg/dL Critically high 74-106 [facility] Comment on above: Performed By: #### B MP ####[facility] Fokxdqdtls8781 [place] [address]Dr. Garima Pulliam Potassium [Moles/Vol] 3.6 mmol/L Normal 3.5-5.1 [facility] Comment on above: Performed By: #### B MP ####[facility] Ygkluoqedv3389 [place] [id number]. Garima Pulliam Sodium [Moles/Vol] 139 mmol/L Normal 136-145 [facility] Comment on above: Performed By: #### B DAVID ####[facility] Atxmumigam7428 [place] [id number]. Garima Heraclio Urea nitrogen [Mass/Vol] 9.0 mg/dL Normal 7.0-18.0 [facility] Comment on above: Performed By: #### B DAVID ####[facility] Vwqfatfnpt2646 [place] [id number]. Garima Pulliam Urea nitrogen/Creatinine [Mass ratio] 14.3 mg/mg Normal [facility] Comment on above: Performed By: #### B DAVID ####[facility] [address] [place] [address]Dr. Garima Pulliam CARDIAC NASH ADMITon 022 CK [Catalytic activity/Vol] 304 U/L Normal 39-308 [facility] Comment on above: Performed By: #### B NANCY HERNANDEZ ####[facility] [address] [place] [id number]. Garima Pulliam CK.MB [Mass/Vol] 11.81 ng/mL Critically high <=3.60 [facility] Comment on above: Performed By: #### B NANCY HERNANDEZ ####[facility] [address] [place] [address]Dr. Garima Pulliam HSTROP 13.3 pg/mL Normal 4.0-76.1 [facility] Comment on above: Result Comment: CUT- OFF POINTS HAVE BEEN ESTABLISHED BASED ON THE FOURTH UNIVERSAL DEFINITIONS OF MYOCARDIALINFARCTION. THE UPPER REFERENCE LIMIT (URL) OF TROPONIN, DEFINED THE 99TH PERCENTILE OFcTnI DISTRIBUTION IN A REFERENCE POPULATION, HAS BEEN CONFIRMED THE DECISION THRESHOLDFOR OK DIAGNOSIS. Performed By: #### B DAVID, NANCY ####[facility] [address] [place] [id number]. Garima Pulliam DORIS 133 ng/mL Critically high 16-96 [facility] Comment on above: Performed By: #### B ERVIN HERNANDEZDM ####[facility] [address] [place] [id number]. Garima Heraclio CBC AUTO DIFFon 09-12-2022 BASO # 0.0 103/ul Normal 0.0-0.1 [facility] Comment on above: Performed By: #### C BC ####[facility] [address] [place] [id number]. Chapisrenu Pulliam Basophils/100 WBC (Bld) 0.2 % Normal 0.2-2.0 [facility] Comment on above: Performed By: #### C BC ####[facility] [address] [place], [place] [address]Dr. Chapisrenu Pulliam EO # 0.2 103/ul Normal 0.0-0.7 [facility] Comment on above: Performed By: #### C BC ####[facility] [address] [place], [place] [address]Dr. Chapisrenu Pulliam Eosinophils/100 WBC (Bld) 1.3 % Normal 0.9-7.0 [facility] Comment on above: Performed By: #### C BC ####[facility] [address] [place], [place] [address]Dr. Garima Heraclio Erythrocyte distribution width (RBC) [Ratio] 13.7 % Normal 11.0-15.0 [facility] Comment on above: Performed By: #### C BC ####[facility] [address] [place], [place] [address]Dr. Garima Pulliam Hematocrit (Bld) [Volume fraction] 46.4 % Normal 42.0-54.0 [facility] Comment on above: Performed By: #### C BC ####[facility] [address] [place], [place] [address]Dr. Garima Heraclio Hemoglobin (Bld) [Mass/Vol] 15.7 g/dL Normal 14.0-18.0 [facility] Comment on above: Performed By: #### C BC ####[facility] [address] [place], [place] [address]Dr. Garima Pulliam IG # 0.04 10e3/ul Critically high 0.00-0.03 [facility] Comment on above: Performed By: #### C BC ####[facility] [address] [place] [id number] Garima Heraclio IG % 0.3 % Normal 0.0-0.5 [facility] Comment on above: Performed By: #### C BC ####[facility] [address] [place] [id number] Garima Heraclio LYMPH # 1.7 103/ul Normal 1.2-3.8 [facility] Comment on above: Performed By: #### C BC ####[facility] [address] [place] [id number] Garima Heraclio Lymphocytes/100 WBC (Bld) 11.5 % Critically low 20.5-60.0 [facility] Comment on above: Performed By: #### C BC ####[facility] [address] [place] [address]DrAdalberto Chapisrenu Pulliam MANUAL DIFF REQ NO Normal [facility] Comment on above: Performed By: #### C BC ####[facility] [address] [place] [id number] Garima Heraclio MCH (RBC) [Entitic mass] 31.0 pg Normal 25.9-34.0 [facility] Comment on above: Performed By: #### C BC ####[facility] [address] [place] [id number] Garima Heraclio MCHC (RBC) [Mass/Vol] 33.8 g/dL Normal 29.9-35.2 [facility] Comment on above: Performed By: #### C BC ####[facility] [address] [place] [id number] Garima Heraclio MCV (RBC) [Entitic vol] 91.7 fL Normal 80.0-94.0 [facility] Comment on above: Performed By: #### C BC ####[facility] [address] [place] [id number] Pulliam MONO # 0.8 103/ul Normal 0.3-0.8 [facility] Comment on above: Performed By: #### C BC ####[facility] [address] [place] [id number]. Garima Pulliam Monocytes/100 WBC (Bld) 5.2 % Normal 1.7-12.0 [facility] Comment on above: Performed By: #### C BC ####[facility] [address] [place] [id number]. Garima Pulliam NEUT # 11.7 103/ul Critically high 1.4-6.5 [facility] Comment on above: Performed By: #### C BC ####[facility] [address] [place] [id number]. Garima Pulliam Neutrophils/100 WBC (Bld) 81.5 % Critically high 43.0-75.0 [facility] Comment on above: Performed By: #### C BC ####[facility] [address] [place] [address]Dr. Garima Pulliam Platelet mean volume (Bld) [Entitic vol] 8.6 fL Critically low 9.5-13.5 [facility] Comment on above: Performed By: #### C BC ####[facility] [address] [place] [address]Dr. Garima Pulliam PLT 191 103/ul Normal 150-450 [facility] Comment on above: Performed By: #### C BC ####[facility] [address] [place] [id number]. Garima Pulliam RBC 5.06 106/ul Normal 4.70-6.10 [facility] Comment on above: Performed By: #### C BC ####[facility] [address] [place] [id number]. Garima Pulliam WBC 14.4 103/ul Critically high 4.0-11.0 [facility] Comment on above: Performed By: #### C BC ####[facility] [address] [place] [id number] Garima Pulliam [facility]24 SARS-CoV-2 (COVID-19) RNA MARIE+probe Ql (Unsp spec) Not detected Normal NOT DETECTED [facility] Comment on above: Result Comment: When diagnostic [...] for this test is supported by the [employer] of Health and Human Service's declaration that [...] be used). Performed By: #### C VDTBH ####[facility] [address] [place], [place] [address]Dr. Garima Pulliam LACTATE/LACTIC ACIDon 2021 Lactate [Moles/Vol] 1.0 mmol/L Normal 0.4-1.9 [facility] Comment on above: Performed By: #### L ACT ####[facility] [address] [place], [place] [address]Dr. Garima Pulliam PROF CHEM 8 (BAS METB)on Anion gap [Moles/Vol] 11.6 mmol/L Normal [facility] Comment on above: Performed By: #### B MP, CMADM ####[facility] [address] [place] [address]Dr. Garima Pulliam Calcium [Mass/Vol] 9.2 mg/dL Normal 8.5-10.1 [facility] Comment on above: Performed By: #### B MP, CMADM ####[facility] [address] [place] [address]Dr. Garima Pulliam Chloride [Moles/Vol] 105 mmol/L Normal 98-107 [facility] Comment on above: Performed By: #### B DAVID, CMADM ####[facility] [address] [place] [id number]. Garima Pulliam CO2 [Moles/Vol] 25.9 mmol/L Normal 21.0-32.0 [facility] Comment on above: Performed By: #### B DAVID, CMADM ####[facility] [address] [place] [address]Dr. Garima Pulliam Creatinine [Mass/Vol] 0.72 mg/dL Normal 0.70-1.30 [facility] Comment on above: Performed By: #### B DAVID, CMADM ####[facility] [address] [place] [address]Dr. Garima Pulliam EGFR-AF MALAGASY >60 Normal >=60 [facility] Comment on above: Performed By: #### B DAVID, CMADM ####[facility] [address] [place] [address]Dr. Garima Heraclio EGFR-NON AF MALAGASY >60 Normal >=60 [facility] Comment on above: Performed By: #### B DAVID, CMADM ####[facility] [address] [place] [address]Dr. Garima Pulliam Glucose [Mass/Vol] 111 mg/dL Critically high 74-106 [facility] Comment on above: Performed By: #### B DAVID, CMADM ####[facility] [address] [place] [address]Dr. Garima Pulliam Potassium [Moles/Vol] 3.5 mmol/L Normal 3.5-5.1 [facility] Comment on above: Performed By: #### B DAVID, CMADM ####[facility] [address] [place] [address]Dr. Garima Pulliam Sodium [Moles/Vol] 139 mmol/L Normal 136-145 [facility] Comment on above: Performed By: #### B DAVID, CMADM ####[facility] [address] [place] [address]Dr. Garima Pulliam Urea nitrogen [Mass/Vol] 7.0 mg/dL Normal 7.0-18.0 [facility] Comment on above: Performed By: #### B NANCY HERNANDEZ ####[facility] [address] [place], [place] [address]Vb. Garima Pulliam Urea nitrogen/Creatinine [Mass ratio] 9.7 mg/mg Normal [facility] Comment on above: Performed By: #### B DAVID, CMADM ####[facility] [address] [place], [place] [address]Mr. Garima Pulliam XR CHEST 1 Von 09-12-2022 XR CHEST 1 V Normal [facility] Encounters Encounter Date Encounter Type Care Provider [...] Facility:H1 Payers Date Payer Category Payer Unknown [id number] 1960 Medicaid [id number] 1960 Unknown [id number] 1959 Unknown [id number] 1954 Unknown [id number] 2.16.84 0.1.525149.3.579.2.593 1954 Unknown [id number] 2.16.84 0.1.829331.3.579.2.593 1954 Unknown [id number] 2.16.84 0.1.699704.3.579.2.593 1954 Unknown [id number] 2.16.84 0.1.134435.3.579.2.593 1954 Unknown [id number] 2.16.84 0.1.106769.3.579.2.593 1954 Unknown [id number] 2.16.84 0.1.447255.3.579.2.593 1954 Unknown [id number] 2.16.84 0.1.383277.3.579.2.593 1954 Unknown [id number] 2.16.84 0.1.856458.3.579.2.593 1954 Unknown [id number] 2.16.84 0.1.716560.3.579.2.593 1954 Unknown [id number] 2.16.84 0.1.315057.3.579.2.593 1954 Unknown [id number] 2.16.84 0.1.213428.3.579.2.593 1954 Unknown [id number] 2.16.84 0.1.558916.3.579.2.593 1954 Unknown [id number] 2.16.84 0.1.307869.3.579.2.593 1954 Unknown [id number] 2.16.84 0.1.956577.3.579.2.593 1954 Unknown [id number] 2.16.84 0.1.753703.3.579.2.593 1954 Unknown [id number] 2.16.84 0.1.077274.3.579.2.593 1954 Unknown [id number] 2.16.84 0.1.477383.3.579.2.593 1954 Unknown [id number] 2.16.84 0.1.106729.3.579.2.593 1954 Unknown [id number] 2.16.84 0.1.806370.3.579.2.593 1954 Unknown [id number] 2.16.84 0.1.298052.3.579.2.593 Summary Purpose Family History No Family History Records Found Advance Directives No Advanced Directives Records Found Additional Source Comments (unrecognized sect ion and content) No Status Records Found INFORMATION SOURCE (unrecogn ized section and content) DATE CREATED AUTHOR 04/08/2023 [facility] FOR RECORDS PERTAINING TO PATIENTS WHO [...] BE BASED ON THE PRIMARY CLINICAL RECORDS. [facility] [employer] [facility] provides no warranty or guarantee of the accuracy or completeness of information in this document.
[2024-01-05] MEDS: METHYLPREDNISOLONE SOD SUCC PF 125 MG/2 ML VIAL IVP (18:46)
--- NOTE | 2024-01-05 18:49 | ED.SOB1 ---
HPI - SOB/Dyspnea General Chief Complaint: Shortness of Breath/Dyspnea Stated Complaint: COPD Time Seen by Provider: 01/05/24 18:18 Source: patient Mode of arrival: Wheelchair Limitations: no limitations History of Present Illness HPI Narrative: And is a 68-year-old male who presents to the emergency department for increasing shortness of breath throughout the day. Patient is well-known to this hospital for history of COPD and medication noncompliance. He states earlier today he had some discomfort in his chest with coughing but denies any chest pain at this time. He has had no swelling, fevers, sputum production or hemoptysis. He states that he filled the antibiotics and steroids that he was given from his most recent admission, although he states he is not currently taking steroids. No medications taken prior to arrival for his symptoms. Related Data Home Medications Medication Instructions Recorded Confirmed omeprazole 20 mg capsule,delayed 20 mg PO DAILY 10/22/23 12/25/23 release albuterol sulfate 2.5 mg/3 mL 2.5 mg inhalation Q6H PRN 11/02/23 12/26/23 (0.083 %) solution for nebulization shortness of breath or wheezing fluticasone 250 mcg-salmeterol 50 1 inh inhalation BID 12/25/23 12/25/23 mcg/dose blistr powdr for inhalation (Wixela Inhub) tiotropium bromide 2.5 2 inh inhalation BID 12/25/23 12/25/23 mcg/actuation mist for inhalation (Spiriva Respimat) Previous Rx's Medication Instructions Recorded albuterol sulfate 90 mcg/actuation 2 inh inhalation Q6H PRN shortness 12/17/23 aerosol inhaler of breath or wheezing #8.5 grams cefdinir 300 mg capsule 600 mg (2 x 300 mg) PO DAILY #20 12/27/23 caps losartan 100 mg tablet 100 mg PO DAILY #30 tabs 12/27/23 prednisone 10 mg tablet 50 mg (5 x 10 mg) PO DAILY #47 tabs 12/27/23 methylprednisolone 4 mg tablets in See Rx Instructions .Route 01/05/24 a dose pack (Medrol (Luis)) .COMPLEX #21 ea Allergies Allergy/AdvReac Type Severity Reaction Status Date / Time No Known Drug Allergies Allergy Verified 11/24/23 16:17 Review of Systems ROS Constitutional Denies: fever or chills Ears, nose, mouth, and throat Denies: throat pain or nasal congestion Cardiovascular Reports: chest pain Respiratory Reports: shortness of breath and cough Gastrointestinal Denies: nausea, vomiting or diarrhea Musculoskeletal Denies: back pain or neck pain Integumentary/Breast Denies: rash Neurological Denies: headache Hematologic/Lymphatic Denies: easy bruising PFSH PFSH Medical History (Updated 01/05/24 @ 20:53 by PALMIRA Pederson) Community acquired pneumonia ?J18.9 - Pneumonia, unspecified organism (ICD-10) Chronic obstructive pulmonary disease ?J44.9 - Chronic obstructive pulmonary disease, unspecified (ICD-10) Acute exacerbation of chronic obstructive pulmonary disease (COPD) ?J44.1 - Chronic obstructive pulmonary disease with (acute) exacerbation (ICD-10) RLL pneumonia ?J18.9 - Pneumonia, unspecified organism (ICD-10) COPD (chronic obstructive pulmonary disease) ?J44.9 - Chronic obstructive pulmonary disease, unspecified (ICD-10) Family History (Updated 12/25/23 @ 21:28 by Kym Ordaz) Mother Family history of cancer Family history of hypertension Father Family history of cancer Social History Within the past year, how often did you have a drink containing alcohol: 4 or more times a week Within the past year, how many standard drinks containing alcohol did you have on a typical day: 3 or 4 Within the past year, how often did you have six or more drinks on one occasion: less than monthly Total score: 3 Score interpretation: A score of 4 or more indicates drinking is likely to affect patient's safety. Smoking status: Heavy tobacco smoker Non-prescribed substance use: cannabis (any form) Previous occupational history: retired Highest level of school completed/degree received: high school graduate Are you now , , , , never or living with a partner: In a typical week, how many times do you talk on the telephone with family, friends, or neighbors: twice per week How often do you get together with friends or relatives: once per week How often do you attend holiness or roman catholic services: never Do you belong to any clubs or organizations such as holiness groups unions, fraternal or athletic groups, or school groups: no Total score: 1 Score interpretation: A score of less than or equal to 1 indicates the most socially isolated. Little interest or pleasure in doing things: several days Feeling down, depressed, or hopeless: not at all Feel stressed/tense/nervous/anxious/difficulty sleeping: not at all Do you think of yourself as: straight/heterosexual Gender Identity: male Exam Narrative Exam Narrative: Gen.: Awake, alert, in no distress Head: Normocephalic, atraumatic ENT: Moist mucous membranes Respiratory: No respiratory distress, Speaks in full sentences, faint expiratory wheezing Cardio: Regular rate and rhythm Gastrointestinal: Abdomen is soft, nondistended and nontender to palpation Extremities: Moves extremities equally, no Pedal edema Psych: Normal mood and affect Neuro: No focal neuro deficit Skin: Warm, dry, intact Constitutional Vital Signs, click to edit/add: Last Vital Signs Pulse 78 01/05/24 20:40 Resp 24 01/05/24 20:40 BP 168/88 H 01/05/24 20:38 Pulse Ox 94 L 01/05/24 20:40 O2 Del Method Room Air 01/05/24 19:01 Course Vital Signs Vital signs: Vital Signs Pulse Rate 98 H 01/05/24 18:20 Respiratory Rate 24 01/05/24 18:20 Blood Pressure 213/94 H 01/05/24 18:20 Pulse Oximetry 96 01/05/24 18:20 Oxygen Delivery Method Room Air 01/05/24 18:20 Pulse Rate 78 01/05/24 20:40 Respiratory Rate 24 01/05/24 20:40 Blood Pressure 168/88 H 01/05/24 20:38 Pulse Oximetry 94 L 01/05/24 20:40 Oxygen Delivery Method Room Air 01/05/24 19:01 MDM - SOB/Dyspnea MDM Narrative Medical decision making narrative: Patient with a benign exam, consistent with previous COPD exacerbations. He has no complaints of chest pain in the ER. He maintains normal oxygen saturation with no supplemental oxygen requirements. Repeat blood pressure is improved. Lab studies are stable, normal troponin and BNP with unremarkable chest x-ray. Patient is discharged home on a Medrol Dosepak to follow-up with PCP and return to the ER if symptoms change or worsen. Medical Records Attestation: I reviewed the patient's medical records. Lab Data Attestation: I reviewed the patient's lab results. Labs: Lab Results 01/05/24 01/05/24 Range/Units 18:37 18:40 WBC 10.6 (4.0-11.0) 10^3/uL RBC 4.42 L (4.70-6.10) 10^6/uL Hgb 13.3 L (14.0-18.0) g/dL Hct 40.7 L (42.0-54.0) % MCV 92.1 (80.0-94.0) fL MCH 30.1 (25.9-34.0) pg MCHC 32.7 (29.9-35.2) g/dL RDW 13.8 (11.0-15.0) % Plt Count 195 (150-450) 10^3/uL MPV 8.9 L (9.5-13.5) fL Neut % (Auto) 72.3 (43.0-75.0) % Lymph % (Auto) 17.9 L (20.5-60.0) % Simpson % (Auto) 8.2 (1.7-12.0) % Eos % (Auto) 1.2 (0.9-7.0) % Baso % (Auto) 0.2 (0.2-2.0) % Neut # (Auto) 7.6 H (1.4-6.5) 10^3/uL Lymph # (Auto) 1.9 (1.2-3.8) 10^3/uL Simpson # (Auto) 0.9 H (0.3-0.8) 10^3/uL Eos # (Auto) 0.1 (0.0-0.7) 10^3/uL Baso # (Auto) 0.0 (0.0-0.1) 10^3/uL Abs Immat Gran (auto) 0.02 (0.00-0.03) 10^3/uL Imm/Tot Granulo (auto) 0.2 (0.0-0.5) % PT 11.9 H (9.0-11.6) sec INR 1.13 APTT 26.8 (22.3-36.2) sec VBG pH 7.430 (7.330-7.430) VBG pCO2 43.8 (40.0-52.0) mmHg Sodium 146 H (136-145) mmol/L Potassium 3.6 (3.5-5.1) mmol/L Chloride 108 H (98-107) mmol/L Carbon Dioxide 31.4 (21.0-32.0) mmol/L Anion Gap 10.2 BUN 12.0 (7.0-18.0) mg/dL Creatinine 0.70 (0.70-1.30) mg/dL Est GFR ( Amer) >60 (>=60) Est GFR (Non-Af Amer) >60 (>=60) BUN/Creatinine Ratio 17.1 Glucose 137 H (74-106) mg/dL Lactate 2.2 H* (0.4-2.0) mmol/L Calcium 8.8 (8.5-10.1) mg/dL Total Bilirubin 0.4 (0.2-1.0) mg/dL AST 25 (15-37) U/L ALT 41 (16-63) U/L Alkaline Phosphatase 73 (46-116) U/L Troponin I High Sens 16.3 (4.0-76.1) pg/mL NT-Pro-B Natriuret Pep 212.0 (<=900.0) pg/mL Total Protein 6.0 L (6.4-8.2) g/dL Albumin 3.4 (3.4-5.0) g/dL Globulin 2.6 g/dL Albumin/Globulin Ratio 1.3 Adenovirus (PCR) Not detected (NOT DETECTE) C. pneumoniae DNA (PCR) Not detected (NOT DETECTE) Coronavirus Type OC43 Not detected (NOT DETECTE) Coronavirus Type HKU1 Not detected (NOT DETECTE) Coronavirus Type 229E Not detected (NOT DETECTE) Coronavirus Type NL63 Not detected (NOT DETECTE) Human Metapneumovir PCR Not detected (NOT DETECTE) M. pneumoniae (PCR) Not detected (NOT DETECTE) Parainfluenza PCR Not detected (NOT DETECTE) Parainfluenza 2 (PCR) Not detected (NOT DETECTE) Parainfluenza 3 (PCR) Not detected (NOT DETECTE) Parainfluenza 4 (PCR) Not detected (NOT DETECTE) RSV (RT-PCR) Not detected (NOT DETECTE) Entero/Rhino (PCR) Not detected (NOT DETECTE) SARS-CoV-2 (PCR) Not detected (NOT DETECTE) Bordetella pertussis (PCR) Not detected (NOT DETECTE) B parapertussis DNA PCR Not detected (NOT DETECTE) Influenza Type A (PCR) Not detected (NOT DETECTE) Influenza Type B (PCR) Not detected (NOT DETECTE) Imaging Data Chest x-ray: Attestation: I have reviewed the pertinent imaging results. Radiologist's impression: ITS Impressions Chest X-Ray 01/05/24 18:19 IMPRESSION: No acute cardiopulmonary process. Electronically authenticated by: PARAG REYES Date: 01/05/2024 19:55 ECG Data Attestation: I personally reviewed and interpreted this ECG as follows: (Normal sinus rhythm at a rate of 89, moderate ST depression with no acute ST elevation or ectopy. EKG reviewed by attending physician. Moderate artifact noted.) ECG interpretation date: 01/05/24 Discharge Plan Discharge Chief Complaint: Shortness of Breath/Dyspnea Clinical Impression: COPD exacerbation Patient Disposition: Home, Self-Care Time of Disposition Decision: 20:53 Condition: Good Prescriptions / Home Meds: New methylprednisolone [Medrol (Luis)] 4 mg tablets,dose pack See Rx Instructions .ROUTE .COMPLEX Qty: 21 0RF Rx Instructions: Taper as directed No Action omeprazole 20 mg capsule,delayed release(DR/EC) 20 mg PO DAILY albuterol sulfate 2.5 mg /3 mL (0.083 %) solution for nebulization 2.5 mg inhalation Q6H PRN (Reason: shortness of breath or wheezing) Spiriva Respimat 2.5 mcg/actuation mist 2 inh inhalation BID fluticasone propion-salmeterol [Wixela Inhub] 250-50 mcg/dose blister with device 1 inh inhalation BID prednisone 10 mg tablet 50 mg PO DAILY Qty: 47 0RF Rx Instructions: 5/day for 3 days. 4/day for 3 days, 3/day for 3 days, 2/day for 3 days, 1/day for 3 days, 1/2 /day for 4 days losartan 100 mg tablet 100 mg PO DAILY Qty: 30 11RF cefdinir 300 mg capsule 600 mg PO DAILY Qty: 20 0RF albuterol sulfate 90 mcg/actuation HFA aerosol inhaler 2 inh inhalation Q6H PRN (Reason: shortness of breath or wheezing) Qty: 8.5 2RF Instructions: COPD (Chronic Obstructive Pulmonary Disease) (ED) Stand Alone Forms: Portal Instructions Referrals: Physician,Non-Staff, MD [Primary Care Provider] - 1 week
[2024-01-05] MEDS: ALBUTEROL SULFATE 2.5 MG/3 ML VIAL NEB IH (18:52)
[2024-01-05 19:00] LABS: Adenovirus NOT DETECTED (NOT DETECTE); Bordetella parapertussis NOT DETECTED (NOT DETECTE); Coronavirus 229E NOT DETECTED (NOT DETECTE); Coronavirus HKU1 NOT DETECTED (NOT DETECTE); Coronavirus NL63 NOT DETECTED (NOT DETECTE); Coronavirus OC43 NOT DETECTED (NOT DETECTE); Human Metapneumovirus NOT DETECTED (NOT DETECTE); Human Rhinovirus/Enterovirus NOT DETECTED (NOT DETECTE); Influenza A NOT DETECTED (NOT DETECTE); Influenza B NOT DETECTED (NOT DETECTE); Mycoplasma pneumoniae NOT DETECTED (NOT DETECTE); Parainfluenza Virus 1 NOT DETECTED (NOT DETECTE); Parainfluenza Virus 2 NOT DETECTED (NOT DETECTE); Parainfluenza Virus 3 NOT DETECTED (NOT DETECTE); Parainfluenza Virus 4 NOT DETECTED (NOT DETECTE); Respiratory Syncytial Virus NOT DETECTED (NOT DETECTE); SARS-CoV-2 NOT DETECTED (NOT DETECTE)
[2024-01-05 19:03] LABS: Basophils Percent Auto 0.2 % (0.2-2.0); Eosinophils Absolute Auto 0.1 10^3/uL (0.0-0.7); Eosinophils Percent Auto 1.2 % (0.9-7.0); Hematocrit 40.7 % (42.0-54.0); Hemoglobin 13.3 g/dL (14.0-18.0); Immature Granulocytes Abs Auto 0.02 10^3/uL (0.00-0.03); Immature Granulocytes Pct Auto 0.2 % (0.0-0.5); Lymphocytes Absolute Auto 1.9 10^3/uL (1.2-3.8); Lymphocytes Percent Auto 17.9 % (20.5-60.0); Mean Corpuscular HGB Conc 32.7 g/dL (29.9-35.2); Mean Corpuscular Hemoglobin 30.1 pg (25.9-34.0); Mean Corpuscular Volume 92.1 fL (80.0-94.0); Mean Platelet Volume 8.9 fL (9.5-13.5); Monocytes Absolute Auto 0.9 10^3/uL (0.3-0.8); Monocytes Percent Auto 8.2 % (1.7-12.0); Neutrophils Absolute Auto 7.6 10^3/uL (1.4-6.5); Neutrophils Percent Auto 72.3 % (43.0-75.0); Platelet Count 195 10^3/uL (150-450); Red Blood Count 4.42 10^6/uL (4.70-6.10); Red Cell Distribution Width 13.8 % (11.0-15.0); White Blood Count 10.6 10^3/uL (4.0-11.0)
[2024-01-05 19:10] LABS: PCO2 VBG 43.8 mmHg (40.0-52.0)
[2024-01-05 19:17] LABS: INR 1.13; Partial Thromboplastin Time 26.8 sec (22.3-36.2); Prothrombin Time 11.9 sec (9.0-11.6)
[2024-01-05 19:29] LABS: Alanine Aminotransferase 41 U/L (16-63); Albumin Globulin Ratio 1.3; Albumin Level 3.4 g/dL (3.4-5.0); Alkaline Phosphatase 73 U/L (46-116); Anion Gap 10.2; Aspartate Amino Transferase 25 U/L (15-37); BUN Creatinine Ratio 17.1; Bilirubin Total 0.4 mg/dL (0.2-1.0); Calcium 8.8 mg/dL (8.5-10.1); Carbon Dioxide 31.4 mmol/L (21.0-32.0); Chloride 108 mmol/L (98-107); Estimated GFR (African America >60 (>=60); Estimated GFR (Non-African Ame >60 (>=60); Globulin 2.6 g/dL; Glucose 137 mg/dL (74-106); Potassium 3.6 mmol/L (3.5-5.1); Sodium 146 mmol/L (136-145); Troponin I High Sensitivity 16.3 pg/mL (4.0-76.1)
[2024-01-05 19:31] LABS: Lactate/Lactic Acid 2.2 mmol/L (0.4-2.0)
== END 2024-01-05 21:11 | disposition home or self-care (01) ==
PROVIDERS: Physician Assistant; Emergency Provider Emergency Medicine
DX: J44.1 Chronic obstructive pulmonary disease with (acute) exacerbation (principal); F17.210 Nicotine dependence, cigarettes, uncomplicated; Z87.01 Personal history of pneumonia (recurrent); Z79.899 Other long term (current) drug therapy; Z20.822 Contact with and (suspected) exposure to COVID-19
CPT/HCPCS: 0202U; 36415; 71045; 80053; 82800; 83605; 83880; 84484; 85025; 85610; 85730; 87040; 93005; 94640; 96374; 99285; J2930

== ENCOUNTER 2024-01-21 23:02 | Emergency (ER) | payer MEDICARE, SELFPAY ==
[2024-01-21 23:05] VITALS: BP 187/103; PULSE 89; RESP 20; TEMP 37.1; O2SAT 93; BMI 25.0
--- OUTSIDE RECORDS SUMMARY | 2024-01-21 23:15 | XMS_ITS | CCD ---
Author Name Unknown Address [address] [facility] [address] [place] [address] Organization [facility] Care Team Providers Care Sap Security Architect Name Role Phone REQUEST, DR NONE LISTED [...] source) Penicillin Drug Allergy [facility] Repository Problems Active Problems Problem Classification [...] 03-27-2023 Episodic Other aftercare (1 source) Other skilled nursing (current) drug therapy; Translations: [OTH PENITENTIARY CURRENT DRUG THERAPY] Onset: 04-07-2023 Episodic Other [...] 0.0 103/ul Normal 0.0-0.1 [facility] Comment on above: Performed By: #### C BC ####[facility] [address] [place], [place] [address]Ms. Garima Pulliam Basophils/100 WBC (Bld) 0.3 % Normal 0.2-2.0 [facility] Comment on above: Performed By: #### C BC ####[facility] Xassvtirrt3600 [place], [place] [address]XkAdalberto Pulliam EO # 0.3 103/ul Normal 0.0-0.7 [facility] Comment on above: Performed By: #### C BC ####[facility] Yrqrqvmlii[address] [place] [id number]. Garima Pulliam Eosinophils/100 WBC (Bld) 2.8 % Normal 0.9-7.0 [facility] Comment on above: Performed By: #### C BC ####[facility] Dnaqusgqkb5048 [place] [address]Dr. Garima Pulliam Erythrocyte distribution width (RBC) [Ratio] 13.4 % Normal 11.0-15.0 [facility] Comment on above: Performed By: #### C BC ####[facility] [address] [place], [place] [address]Dr. Garima Pulliam Hematocrit (Bld) [Volume fraction] 45.7 % Normal 42.0-54.0 [facility] Comment on above: Performed By: #### C BC ####[facility] [address] [place], [place] [address]Dr. Garima Pulliam Hemoglobin (Bld) [Mass/Vol] 15.2 g/dL Normal 14.0-18.0 [facility] Comment on above: Performed By: #### C BC ####[facility] X[address]cl[address] [place], [place] [address]Dr. Garima Pulliam IG # 0.02 10e3/ul Normal 0.00-0.03 [facility] Comment on above: Performed By: #### C BC ####[facility] Yckacksg[address] [place], [place] [address]Dr. Garima Pulliam IG % 0.2 % Normal 0.0-0.5 [facility] Comment on above: Performed By: #### C BC ####[facility] Msdpmhmahk[address] [place], [place] [address]Dr. Garima Pulliam LYMPH # 2.1 103/ul Normal 1.2-3.8 [facility] Comment on above: Performed By: #### C BC ####[facility] Mcgbwrqejy[address] [place], [place] [address]Dr. Garima Pulliam Lymphocytes/100 WBC (Bld) 23.7 % Normal 20.5-60.0 [facility] Comment on above: Performed By: #### C BC ####[facility] Ernzzevbgb9024 [place] [address]Dr. Garima Pulliam MANUAL DIFF REQ NO Normal [facility] Comment on above: Performed By: #### C BC ####[facility] Djjiyazizg5444 [place] [address]Dr. Garima Pulliam MCH (RBC) [Entitic mass] 30.4 pg Normal 25.9-34.0 [facility] Comment on above: Performed By: #### C BC ####[facility] Xqulbjmudf[address] [place], [place] [address]Dr. Garima Pulliam MCHC (RBC) [Mass/Vol] 33.3 g/dL Normal 29.9-35.2 [facility] Comment on above: Performed By: #### C BC ####[facility] Qvjhggogua[address] [place], [place] [address]Dr. Garima Pulliam MCV (RBC) [Entitic vol] 91.4 fL Normal 80.0-94.0 [facility] Comment on above: Performed By: #### C BC ####[facility] Hrbdu[address]fsud[address] [place], [place] [address]Dr. Garima Pulliam MONO # 0.7 103/ul Normal 0.3-0.8 [facility] Comment on above: Performed By: #### C BC ####[facility] Zxjawrhdea[address] [place], [place] [address]Dr. Chapisrenu Pulliam Monocytes/100 WBC (Bld) 8.3 % Normal 1.7-12.0 [facility] Comment on above: Performed By: #### C BC ####[facility] Qqqtikhili[address] [place], [place] [address]Dr. Garima Pulliam NEUT # 5.8 103/ul Normal 1.4-6.5 [facility] Comment on above: Performed By: #### C BC ####[facility] Yotteifsje[address] [place], [place] [address]Dr. Garima Pulliam Neutrophils/100 WBC (Bld) 64.7 % Normal 43.0-75.0 [facility] Comment on above: Performed By: #### C BC ####[facility] Jvyimmddwu4429 [place] [id number]. Garima Pulliam Platelet mean volume (Bld) [Entitic vol] 8.6 fL Critically low 9.5-13.5 [facility] Comment on above: Performed By: #### C BC ####[facility] Bkacmcncok[address] [place] [address]Dr. Garima Pulliam PLT 230 103/ul Normal 150-450 [facility] Comment on above: Performed By: #### C BC ####[facility] Zbejsbonec9992 [place] [address]Dr. Garima Pulliam RBC 5.00 106/ul Normal 4.70-6.10 [facility] Comment on above: Performed By: #### C BC ####[facility] Endmmnriyn6940 [place] [address]Dr. Garima Pulliam WBC 9.0 103/ul Normal 4.0-11.0 [facility] Comment on above: Performed By: #### C BC ####[facility] Wjguvbajbx[address] [place], [place] [address]Dr. Garima Pulliam MAGNESIUMon 04-04-2023 Magnesium [Mass/Vol] 1.8 mg/dL Normal 1.8-2.4 [facility] Comment on above: Performed By: #### M G ####[facility] Xggrjpvwya[address] [place], [place] [address]Dr. Garima Pulliam PROF 14(COMP METB)on 023 Albumin [Mass/Vol] 3.8 g/dL Normal 3.4-5.0 [facility] Comment on above: Performed By: #### C MP ####[facility] Nybwghtpnm[address] [place], [place] [address]Dr. Garima Pulliam Albumin/Globulin [Mass ratio] 1.2 {ratio} Normal [facility] Comment on above: Performed By: #### C MP ####[facility] Znwskuheui8283 [place] [address]Dr. Garima Pulliam ALP [Catalytic activity/Vol] 84 U/L Normal 46-116 [facility] Comment on above: Performed By: #### C MP ####[facility] Aandgvehdb8314 [place] [address]Dr. Garima Pulliam ALT [Catalytic activity/Vol] 31 U/L Normal 16-63 [facility] Comment on above: Performed By: #### C MP ####[facility] Mhdlccpwxk4881 [place] [address]Dr. Garima Pulliam Anion gap [Moles/Vol] 12.2 mmol/L Normal [facility] Comment on above: Performed By: #### C MP ####[facility] Ayekabqtoz6596 [place] [address]Dr. Garima Pulliam AST [Catalytic activity/Vol] 23 U/L Normal 15-37 [facility] Comment on above: Performed By: #### C MP ####[facility] Wlzfcqhabc[address] [place], [place] [address]Dr. Garima Pulliam Bilirubin [Mass/Vol] 0.5 mg/dL Normal 0.2-1.0 [facility] Comment on above: Performed By: #### C MP ####[facility] Iakytyyzdb[address] [place], [place] [address]Dr. Garima Pulliam Calcium [Mass/Vol] 9.2 mg/dL Normal 8.5-10.1 [facility] Comment on above: Performed By: #### C MP ####[facility] Intiqunlmm63[address] [place], [place] [address]Dr. Garima Pulliam Chloride [Moles/Vol] 103 mmol/L Normal 98-107 [facility] Comment on above: Performed By: #### C MP ####[facility] Yetzwqkckw[address] [place], [place] [address]Dr. Garima Pulliam CO2 [Moles/Vol] 28.5 mmol/L Normal 21.0-32.0 [facility] Comment on above: Performed By: #### C MP ####[facility] Nkgurqxbku[address] [place], [place] [address]Dr. Garima Pulliam Creatinine [Mass/Vol] 0.74 mg/dL Normal 0.70-1.30 [facility] Comment on above: Performed By: #### C MP ####[facility] Frwqzzvtsy7477 [place] [address]Dr. Garima Pulliam EGFR-AF MOZAMBICAN >60 Normal >=60 [facility] Comment on above: Performed By: #### C MP ####[facility] Lmshysdlkz9823 [place] [address]Dr. Garima Pulliam EGFR-NON AF MOZAMBICAN >60 Normal >=60 [facility] Comment on above: Performed By: #### C MP ####[facility] Gltrqtyfln2367 [place] [address]Dr. Garima Pulliam Globulin (S) [Mass/Vol] 3.1 g/dL Normal [facility] Comment on above: Performed By: #### C MP ####[facility] Qnglxzzqna7327 [place] [address]Dr. Garima Pulliam Glucose [Mass/Vol] 93 mg/dL Normal 74-[address] [facility] Comment on above: Performed By: #### C MP ####[facility] Vyctujsfei1176 [place] [address]Dr. Garima Pulliam Potassium [Moles/Vol] 3.7 mmol/L Normal 3.5-5.1 [facility] Comment on above: Performed By: #### C MP ####[facility] Vjxwygrcrs9652 [place] [address]Dr. Garima Pulliam Protein [Mass/Vol] 6.9 g/dL Normal 6.4-8.[address] [facility] Comment on above: Performed By: #### C MP ####[facility] Vbfydqyksy1956 [place] [address]Dr. Garima Pulliam Sodium [Moles/Vol] 140 mmol/L Normal 136-[address] [facility] Comment on above: Performed By: #### C MP ####[facility] Tavcqqahpg6183 [place] [address]Dr. Garima Pulliam Urea nitrogen [Mass/Vol] 8.0 mg/dL Normal 7.0-18.0 [facility] Comment on above: Performed By: #### C MP ####[facility] Uebwahmngq3579 [place] [address]Dr. Garima Pulliam Urea nitrogen/Creatinine [Mass ratio] 10.8 mg/mg Normal [facility] Comment on above: Performed By: #### C MP ####[facility] Jmrrerabrh2721 [place] [address]Dr. Garima Pulliam AMMONIAon 03-30-2023 Ammonia (P) [Moles/Vol] 11 umol/L Normal 11-32 [facility] Comment on above: Performed By: #### A MM ####[facility] Oqiigjpgmk[address] [place], [place] [address]Dr. Chapisrenu Pulliam CARDIAC NASH ADMITon 023 CK [Catalytic activity/Vol] 232 U/L Normal 39-308 [facility] Comment on above: Performed By: #### C DAVID, CMADM ####[facility] Sscpexyoop[address] [place], [place] [address]Dr. Chapisrenu Pulliam CK.MB [Mass/Vol] 4.83 ng/mL Critically high <=3.60 [facility] Comment on above: Performed By: #### C DAVID, CMADM ####[facility] Pxlumreyrb[address] [place], [place] [address]Dr. Garima Pulliam HSTROP 10.5 pg/mL Normal 4.0-76.1 [facility] Comment on above: Result Comment: CUT- OFF POINTS HAVE BEEN ESTABLISHED BASED ON THE FOURTH UNIVERSAL DEFINITIONS OF MYOCARDIALINFARCTION. THE UPPER REFERENCE LIMIT (URL) OF TROPONIN, DEFINED THE 99TH PERCENTILE OFcTnI DISTRIBUTION IN A REFERENCE POPULATION, HAS BEEN CONFIRMED THE DECISION THRESHOLDFOR [place] DIAGNOSIS. Performed By: #### C DAVID, CMADM ####[facility] Dotgjbqric6032 [place] [address]Dr. Chapisrenu Pulliam DORIS 79 ng/mL Normal 16-96 [facility] Comment on above: Performed By: #### C DAVID, CMADM ####[facility] Fhfbkgtzno[address] [place], [place] [address]Dr. Chapisrenu Pulliam CBC AUTO DIFFon 03-30-2023 BASO # 0.0 103/ul Normal 0.0-0.1 [facility] Comment on above: Performed By: #### C BC ####[facility] Sococglopo5214 [place] [address]Dr. Garima Pulliam Basophils/100 WBC (Bld) 0.1 % Critically low 0.2-2.0 [facility] Comment on above: Performed By: #### C BC ####[facility] Fqxumsudae[address] [place], [place] [address]Dr. Garima Pulliam EO # 0.3 103/ul Normal 0.0-0.7 [facility] Comment on above: Performed By: #### C BC ####[facility] Yvhrvoetvu4[address] [place], [place] [address]Dr. Garima Pulliam Eosinophils/100 WBC (Bld) 3.3 % Normal 0.9-7.0 [facility] Comment on above: Performed By: #### C BC ####[facility] Zaidwcypse[address] [place], [place] [address]Dr. Garima Pulliam Erythrocyte distribution width (RBC) [Ratio] 13.5 % Normal 11.0-15.0 [facility] Comment on above: Performed By: #### C BC ####[facility] Vykozhovlp[address] [place], [place] [address]Dr. Garima Pulliam Hematocrit (Bld) [Volume fraction] 42.9 % Normal 42.0-54.0 [facility] Comment on above: Performed By: #### C BC ####[facility] Cfbqqaicbo[address] [place], [place] [address]Dr. Garima Pulliam Hemoglobin (Bld) [Mass/Vol] 13.9 g/dL Critically low 14.0-18.0 [facility] Comment on above: Performed By: #### C BC ####[facility] Lnfafiwkpj[address] [place], [place] [address]Dr. Garima Pulliam IG # 0.01 10e3/ul Normal 0.00-0.03 [facility] Comment on above: Performed By: #### C BC ####[facility] Mphzgvmsxt[address] [place], [place] [address]Dr. Garima Pulliam IG % 0.1 % Normal 0.0-0.5 [facility] Comment on above: Performed By: #### C BC ####[facility] Qkarkupcai9794 [place] [address]Dr. Garima Pulliam LYMPH # 1.7 103/ul Normal 1.2-3.8 [facility] Comment on above: Performed By: #### C BC ####[facility] Szgjorpelx5377 [place] [address]Dr. Garima Pulliam Lymphocytes/100 WBC (Bld) 22.8 % Normal 20.5-60.0 [facility] Comment on above: Performed By: #### C BC ####[facility] Cglshverdt3573 [place] [address]Dr. Garima Pulliam MANUAL DIFF REQ NO Normal [facility] Comment on above: Performed By: #### C BC ####[facility] Ikndjccztj9702 [place] [address]Dr. Garima Pulliam MCH (RBC) [Entitic mass] 30.5 pg Normal 25.9-34.0 [facility] Comment on above: Performed By: #### C BC ####[facility] Xyhwatjays7643 [place] [address]Dr. Garima Pulliam MCHC (RBC) [Mass/Vol] 32.4 g/dL Normal 29.9-35.2 [facility] Comment on above: Performed By: #### C BC ####[facility] Otmwhwfwxe4575 [place] [address]Dr. Garima Pulliam MCV (RBC) [Entitic vol] 94.1 fL Critically high 80.0-94.0 [facility] Comment on above: Performed By: #### C BC ####[facility] Ntnwwrdzqk7551 [place] [address]Dr. Garima Pulliam MONO # 0.7 103/ul Normal 0.3-0.8 [facility] Comment on above: Performed By: #### C BC ####[facility] Qgjrxhddte2218 [place] [address]Dr. Garima Pulliam Monocytes/100 WBC (Bld) 8.6 % Normal 1.7-12.0 [facility] Comment on above: Performed By: #### C BC ####[facility] Tjkjevgmjn8216 [place] [address]Dr. Garima Pulliam NEUT # 4.9 103/ul Normal 1.4-6.5 [facility] Comment on above: Performed By: #### C BC ####[facility] Xmefxzzlxw0457 [place] [address]Dr. Garima Pulliam Neutrophils/100 WBC (Bld) 65.1 % Normal 43.0-75.0 [facility] Comment on above: Performed By: #### C BC ####[facility] Eznpnzewst4177 [place] [address]Dr. Garima Pulliam Platelet mean volume (Bld) [Entitic vol] 8.5 fL Critically low 9.5-13.5 [facility] Comment on above: Performed By: #### C BC ####[facility] Xuyitcnpol8274 [place] [address]Dr. Garima Pulliam PLT 219 103/ul Normal 150-450 [facility] Comment on above: Performed By: #### C BC ####[facility] Tcnrppcdiw5400 [place] [address]Dr. Garima Pulliam RBC 4.56 106/ul Critically low 4.70-6.10 The [place] Comment on above: Performed By: #### C BC ####[facility] Ewpvqtaywy1160 [place] [address]Dr. Garima Pulliam WBC 7.6 103/ul Normal 4.0-11.0 [facility] Comment on above: Performed By: #### C BC ####[facility] Jolhuouwpi6993 [place] [address]Dr. Garima Pulliam LACTATE/LACTIC ACIDon 2022 Lactate [Moles/Vol] 1.2 mmol/L Normal 0.4-2.0 [facility] Comment on above: Performed By: #### L ACT ####[facility] Ymndflojay7763 [place] [address]Dr. Garima Pulliam MAGNESIUMon 03-30-2023 Magnesium [Mass/Vol] 1.8 mg/dL Normal 1.8-2.4 [facility] Comment on above: Performed By: #### M G ####[facility] Npsysoukdr9500 [place] [address]Dr. Garima Pulliam PROF 14(COMP METB)on 023 Albumin [Mass/Vol] 3.5 g/dL Normal 3.4-5.0 [facility] Comment on above: Performed By: #### C DAVID, NANCY ####[facility] Lkalsulzji3452 [place] [address]Dr. Garima Pulliam Albumin/Globulin [Mass ratio] 1.2 {ratio} Normal [facility] Comment on above: Performed By: #### C NANCY HERNANDEZ ####[facility] Uwgboaewtu4627 [place] [address]Dr. Garima Pulliam ALP [Catalytic activity/Vol] 85 U/L Normal 46-116 [facility] Comment on above: Performed By: #### Ethan HERNANDEZ, NANCY ####[facility] Jafakvxvuv5686 [place] [address]Dr. Garima Pulliam ALT [Catalytic activity/Vol] 29 U/L Normal 16-63 [facility] Comment on above: Performed By: #### NANCY Long MP ####[facility] Dzuoyogjcb4891 [place] [address]Dr. Garima Pulliam Anion gap [Moles/Vol] 8.0 mmol/L Normal [facility] Comment on above: Performed By: #### C DAVID, NANCY ####[facility] Elgizhxnvw5826 [place] [address]Dr. Garima Pulliam AST [Catalytic activity/Vol] 18 U/L Normal 15-37 [facility] Comment on above: Performed By: #### C DAVID, NANCY ####[facility] Dnpyvuvxii4708 [place] [address]Dr. Garima Pulliam Bilirubin [Mass/Vol] 0.4 mg/dL Normal 0.2-1.0 [facility] Comment on above: Performed By: #### NANCY Long MP ####[facility] Zqluazfajx7017 [place] [address]Dr. Garima Pulliam Calcium [Mass/Vol] 8.8 mg/dL Normal 8.5-10.[address] [facility] Comment on above: Performed By: #### C DAVID, NANCY ####[facility] Koztkbsmtf6152 [place] [address]Dr. Garima Pulliam Chloride [Moles/Vol] 108 mmol/L Critically high 98-107 [facility] Comment on above: Performed By: #### C DAVID, NANCY ####[facility] Rfgmmazips7557 [place] [address]Dr. Garima Pulliam CO2 [Moles/Vol] 29.6 mmol/L Normal 21.0-32.0 [facility] Comment on above: Performed By: #### C DAVID, NANCY ####[facility] Btwzcdxnou3519 [place] [address]Dr. Garima Pulliam Creatinine [Mass/Vol] 0.77 mg/dL Normal 0.70-1.30 [facility] Comment on above: Performed By: #### C DAVID, NANCY ####[facility] Urlyihvarm5432 [place] [address]Dr. Garima Pulliam EGFR-AF MOZAMBICAN >60 Normal >=60 [facility] Comment on above: Performed By: #### C DAVID, NANCY ####[facility] Wftvffeeza4628 [place] [address]Dr. Garima Pulliam EGFR-NON AF MOZAMBICAN >60 Normal >=60 [facility] Comment on above: Performed By: #### C DAVID, NANCY ####[facility] Ehmakjxenj6014 [place] [id number]. Garima Pulliam Globulin (S) [Mass/Vol] 2.8 g/dL Normal [facility] Comment on above: Performed By: #### C DAVID, NANCY ####[facility] Flccjqxbgc5156 [place] [address]Dr. Garima Pulliam Glucose [Mass/Vol] 207 mg/dL Critically high 74-106 [facility] Comment on above: Performed By: #### C DAVID, NANCY ####[facility] Ilewqfurzu3770 [place] [address]Dr. Garima Pulliam Potassium [Moles/Vol] 4.6 mmol/L Normal 3.5-5.1 [facility] Comment on above: Performed By: #### C DAVID, CMADM ####[facility] Idenjrxfst3256 [place] [address]Dr. Garima Pulliam Protein [Mass/Vol] 6.3 g/dL Critically low 6.4-8.2 Th e [facility] Comment on above: Performed By: #### C DAVID, CMADM ####[facility] Lciuwaibkq0575 [place] [address]Dr. Garima Pulliam Sodium [Moles/Vol] 141 mmol/L Normal 136-145 [facility] Comment on above: Performed By: #### C DAVID, CMADM ####[facility] Ckrmghuyro9964 [place] [address]Dr. Chapisrenu Pulliam Urea nitrogen [Mass/Vol] 9.0 mg/dL Normal 7.0-18.0 [facility] Comment on above: Performed By: #### C DAVID, CMADM ####[facility] Efnipwnxpl7783 [place] [address]Dr. Garima Pulliam Urea nitrogen/Creatinine [Mass ratio] 11.7 mg/mg Normal [facility] Comment on above: Performed By: #### C DAVID, CMADM ####[facility] Qzvxjvrpur7061 [place] [address]Dr. Chapisrenu Pulliam XR CHEST 1 Von 03-30-2023 XR CHEST 1 V Normal [facility] BNPon 03-27-2023 Natriuretic peptide B (Bld) [Mass/Vol] 251.0 pg/mL Normal <=900.0 [facility] Comment on above: Performed By: #### C MP, BNP, LIPID ####[facility] Z[address]wtpxyv[address] [place], [place] [address]Dr. Garima Heraclio GLYCOHEMOGLOBIN A1Con 2022 ADA RECOMMENDATION SEE BELOW Normal [facility] Comment on above: Result Comment: ADA RECOMMENDED LIMIT 4.0 - 6.0 ADA THERAPEUTIC TARGET < 7.0 ACTION SUGGESTED > 7.0 Performed By: #### A 1C ####[facility] Lzxyvirxrt2083 [place] [address]Dr. Garima Pulliam Glucose [Mass/Vol] 180 mg/dL Normal [facility] Comment on above: Performed By: #### A 1C ####[facility] Kpjlkwjhqz5213 [place] [address]Dr. Garima Pulliam HbA1c (Bld) [Mass fraction] 7.9 % Critically high 4.5-6.2 [facility] Comment on above: Performed By: #### A 1C ####[facility] [address]iiqkkmvmm[address] [place], [place] [address]Dr. Garima Pulliam HEMOGRAM AND PLATELon 2022 Hematocrit (Bld) [Volume fraction] 45.7 % Normal 42.0-54.0 [facility] Comment on above: Performed By: #### H H ####[facility] Rhqinnraxy[address] [place], [place] [address]Dr. Garima Pulliam Hemoglobin (Bld) [Mass/Vol] 15.1 g/dL Normal 14.0-18.0 [facility] Comment on above: Performed By: #### H H ####[facility] Caphlftowe[address] [place], [place] [address]Dr. Garima Pulliam MCH (RBC) [Entitic mass] 30.0 pg Normal 25.9-34.0 [facility] Comment on above: Performed By: #### H H ####[facility] [address]viodbpvs[address] [place], [place] [address]Dr. Garima Pulliam MCHC (RBC) [Mass/Vol] 33.0 g/dL Normal 29.9-35.2 [facility] Comment on above: Performed By: #### H H ####[facility] [address]wedfocjat[address] [place], [place] [address]Dr. Garima Pulliam MCV (RBC) [Entitic vol] 90.7 fL Normal 80.0-94.0 [facility] Comment on above: Performed By: #### H H ####[facility] Yirhcyhyde[address] [place], [place] [address]Dr. Garima Pulliam PLT 222 103/ul Normal 150-450 [facility] Comment on above: Performed By: #### H H ####[facility] Jalgeifoxv0790 [place] [id number]. Garima Pulliam RBC 5.04 106/ul Normal 4.70-6.10 [facility] Comment on above: Performed By: #### H H ####[facility] Gjlxuyirkz0347 [place] [id number]. Garima Pulliam WBC 8.7 103/ul Normal 4.0-11.0 [facility] Comment on above: Performed By: #### H H ####[facility] Ssiyisbohu8378 [place] [address]Dr. Garima Pulliam LIPID PROFILEon 03-27-2023 CHOL-HDL RATIO NORM SEE BELOW Normal [facility] Comment on above: Result Comment: 3.3 - 4.4 LOW RISK 4.4 - 7.1 AVERAGE RISK 7.1 - 11.0 MODERATE RISK >11.0 HIGH RISK Performed By: #### C MP, BNP, LIPID ####[facility] Tzlyrsergy[address] [place] [id number]. Garima Pulliam Cholesterol [Mass/Vol] 113 mg/dL Normal <=200 [facility] Comment on above: Performed By: #### C MP, BNP, LIPID ####[facility] Bntmhhozib[address] [place] [id number]. Garima Pulliam Cholesterol in HDL [Mass/Vol] 51 mg/dL Normal 40-60 [facility] Comment on above: Performed By: #### C MP, BNP, LIPID ####[facility] Umzoatoihs[address] [place] [id number]. Garima Pulliam Cholesterol in LDL [Mass/Vol] 49.8 mg/dL Normal [facility] Comment on above: Performed By: #### C MP, BNP, LIPID ####[facility] Uhlgoyiniw[address] [place] [id number]. Garima Pulliam Cholesterol.total/Cho lesterol in HDL [Mass ratio] 2.2 {ratio} Normal [facility] Comment on above: Performed By: #### C MP, BNP, LIPID ####[facility] Gmfwlfnjbt[address] [place] [address]Dr. Garima Pulliam HDL NORMAL > or = 60 mg/dl - LOW CARDIOVASCULAR RISK <40 mg/dl - HIGH CARDIOVASCULAR RISK Normal [facility] Comment on above: Performed By: #### C MP, BNP, LIPID ####[facility] Suwdefiyps[address] [place] [address]Dr. Garima Pulliam LDL CALC NORMAL SEE BELOW Normal [facility] Comment on above: Result Comment: <100 mg/dl OPTIMAL 100 - 129 mg/dl NEAR OR ABOVE OPTIMAL 130 - 159 mg/dl BORDERLINE HIGH 160 - 189 mg/dl HIGH >190 mg/dl VERY HIGH Performed By: #### C MP, BNP, LIPID ####[facility] Sghbzwbknu[address] [place] [address]Dr. Garima Pulliam Triglyceride [Mass/Vol] 61 mg/dL Normal <=150 [facility] Comment on above: Performed By: #### C MP, BNP, LIPID ####[facility] Htxvizbvkp80[address] [place] [address]Dr. Garima Pulliam VLDL CALC 12.2 mg/dL Normal [facility] Comment on above: Performed By: #### C MP, BNP, LIPID ####[facility] Hxrwjoqcaj020[address] [place] [address]Dr. Garima Pulliam PROF 14(COMP METB)on 023 Albumin [Mass/Vol] 3.5 g/dL Normal 3.4-5.0 [facility] Comment on above: Performed By: #### C MP, BNP, LIPID ####[facility] Lktvjjvgcz4799 [place] [address]Dr. Garima Pulliam Albumin/Globulin [Mass ratio] 1.2 {ratio} Normal [facility] Comment on above: Performed By: #### C MP, BNP, LIPID ####[facility] Citjljffvn[address] [place] [address]Dr. Garima Pulliam ALP [Catalytic activity/Vol] 82 U/L Normal 46-116 [facility] Comment on above: Performed By: #### C MP, BNP, LIPID ####[facility] Cppkmpakcy74[address] [place] [address]Dr. Garima Pulliam ALT [Catalytic activity/Vol] 33 U/L Normal 16-63 [facility] Comment on above: Performed By: #### C MP, BNP, LIPID ####[facility] Dbgiekqyno76[address] [place] [address]Dr. Garima Pulliam Anion gap [Moles/Vol] 9.9 mmol/L Normal [facility] Comment on above: Performed By: #### C MP, BNP, LIPID ####[facility] Feqqrtqjuo6384 [place] [address]Dr. Garima Pulliam AST [Catalytic activity/Vol] 24 U/L Normal 15-37 [facility] Comment on above: Performed By: #### C MP, BNP, LIPID ####[facility] Ltpiblhcue2240 [place] [address]Dr. Garima Pulliam Bilirubin [Mass/Vol] 0.6 mg/dL Normal 0.2-1.0 [facility] Comment on above: Performed By: #### C MP, BNP, LIPID ####[facility] Hhtguohdhf95[address] [place] [address]Dr. Garima Pulliam Calcium [Mass/Vol] 9.2 mg/dL Normal 8.5-10.1 [facility] Comment on above: Performed By: #### C MP, BNP, LIPID ####[facility] Qnfldtomvd9776 [place] [address]Dr. Garima Pulliam Chloride [Moles/Vol] 106 mmol/L Normal 98-107 [facility] Comment on above: Performed By: #### C MP, BNP, LIPID ####[facility] Cxneflasps1131 [place] [address]Dr. Garima Pulliam CO2 [Moles/Vol] 32.3 mmol/L Critically high 21.0-32.0 [facility] Comment on above: Performed By: #### C MP, BNP, LIPID ####[facility] Htodcfhion4787 [place] [address]Dr. Garima Pulliam Creatinine [Mass/Vol] 0.70 mg/dL Normal 0.70-1.30 [facility] Comment on above: Performed By: #### C MP, BNP, LIPID ####[facility] Rlsrkvqhjq4723 [place] [address]Dr. Chapisrenu Heraclio EGFR-AF MOZAMBICAN >60 Normal >=60 [facility] Comment on above: Performed By: #### C MP, BNP, LIPID ####[facility] Luwlonnbue7215 [place] [address]Dr. Garima Pulliam EGFR-NON AF MOZAMBICAN >60 Normal >=60 [facility] Comment on above: Performed By: #### C MP, BNP, LIPID ####[facility] Pxsutvdztb2808 [place] [address]Dr. Garima Pulliam Globulin (S) [Mass/Vol] 2.9 g/dL Normal [facility] Comment on above: Performed By: #### C MP, BNP, LIPID ####[facility] Kbmatmejwf4981 [place] [address]Dr. Garima Pulliam Glucose [Mass/Vol] 111 mg/dL Critically high 74-106 [facility] Comment on above: Performed By: #### C MP, BNP, LIPID ####[facility] Imanwyslul[address] [place], [place] [address]Dr. Garima Pulliam Potassium [Moles/Vol] 4.2 mmol/L Normal 3.5-5.1 [facility] Comment on above: Performed By: #### C MP, BNP, LIPID ####[facility] Rczoxuzqvo[address] [place], [place] [address]Dr. Garima Pulliam Protein [Mass/Vol] 6.4 g/dL Normal 6.4-8.[address] [facility] Comment on above: Performed By: #### C MP, BNP, LIPID ####[facility] Xvdwqwialf[address] [place], [place] [address]Dr. Garima Pulliam Sodium [Moles/Vol] 144 mmol/L Normal 136-145 [facility] Comment on above: Performed By: #### C MP, BNP, LIPID ####[facility] Vqkjspailb[address] [place], [place] [address]Dr. Garima Pulliam Urea nitrogen [Mass/Vol] 7.0 mg/dL Normal 7.0-18.0 [facility] Comment on above: Performed By: #### C MP, BNP, LIPID ####[facility] Tfbjseitfj64[address] [place], [place] [address]Dr. Garima Pulliam Urea nitrogen/Creatinine [Mass ratio] 10.0 mg/mg Normal [facility] Comment on above: Performed By: #### C MP, BNP, LIPID ####[facility] Vwrthrcwoq[address] [place], [place] [address]Dr. Garima Pulliam BNPon 03-22-2023 Natriuretic peptide B (Bld) [Mass/Vol] 103.0 pg/mL Normal <=900.0 [facility] Comment on above: Performed By: #### B ALUM OPERATOR, BMP ####[facility] Lkfqbggiyu[address] [place], [place] [address]Dr. Garima Pulliam CBC AUTO DIFFon 03-22-2023 BASO # 0.0 103/ul Normal 0.0-0.1 [facility] Comment on above: Performed By: #### C BC ####[facility] Nhgvauaard[address] [place], [place] [address]Dr. Garima Pulliam Basophils/100 WBC (Bld) 0.3 % Normal 0.2-2.0 [facility] Comment on above: Performed By: #### C BC ####[facility] Omsdwupiug8[address] [place], [place] [address]Dr. Garima Pulliam EO # 0.2 103/ul Normal 0.0-0.7 [facility] Comment on above: Performed By: #### C BC ####[facility] Bjsftjrkfv83[address] [place], [place] [address]Dr. Garima Pulliam Eosinophils/100 WBC (Bld) 2.2 % Normal 0.9-7.0 [facility] Comment on above: Performed By: #### C BC ####[facility] Qnewqkwejv639[address] [place], [place] [address]Dr. Garima Pulliam Erythrocyte distribution width (RBC) [Ratio] 13.2 % Normal 11.0-15.0 [facility] Comment on above: Performed By: #### C BC ####[facility] Rscjldjvwh7462 [place] [address]Dr. Garima Pulliam Hematocrit (Bld) [Volume fraction] 43.4 % Normal 42.0-54.0 [facility] Comment on above: Performed By: #### C BC ####[facility] Gsqqdquxas9587 [place] [address]Dr. Garima Heraclio Hemoglobin (Bld) [Mass/Vol] 14.3 g/dL Normal 14.0-18.0 [facility] Comment on above: Performed By: #### C BC ####[facility] Rneznwwceo[address] [place], [place] [address]Dr. Garima Heraclio IG # 0.02 10e3/ul Normal 0.00-0.03 [facility] Comment on above: Performed By: #### C BC ####[facility] Kfguosqdqv8[address] [place], [place] [address]Dr. Garima Pulliam IG % 0.3 % Normal 0.0-0.5 [facility] Comment on above: Performed By: #### C BC ####[facility] Hcjlnamhqs9[address] [place], [place] [address]Dr. Garima Heraclio LYMPH # 2.0 103/ul Normal 1.2-3.8 [facility] Comment on above: Performed By: #### C BC ####[facility] Oxqplrsbqq[address] [place], [place] [address]Dr. Chapisrenu Pulliam Lymphocytes/100 WBC (Bld) 24.8 % Normal 20.5-60.0 [facility] Comment on above: Performed By: #### C BC ####[facility] Lhlnhzcxnz[address] [place], [place] [address]Dr. Chapisrenu Pulliam MANUAL DIFF REQ NO Normal [facility] Comment on above: Performed By: #### C BC ####[facility] Znxaudsduh260[address] [place], [place] [address]Dr. Garima Pulliam MCH (RBC) [Entitic mass] 30.0 pg Normal 25.9-34.0 [facility] Comment on above: Performed By: #### C BC ####[facility] Sceuzytbez[address] [place] [id number]. Garima Heraclio MCHC (RBC) [Mass/Vol] 32.9 g/dL Normal 29.9-35.2 [facility] Comment on above: Performed By: #### C BC ####[facility] Ntbnzwwznk4981 [place] [address]Dr. Garima Pulliam MCV (RBC) [Entitic vol] 91.0 fL Normal 80.0-94.0 [facility] Comment on above: Performed By: #### C BC ####[facility] Fhdulbmwty[address] [place], [place] [address]Dr. Garima Pulliam MONO # 0.8 103/ul Normal 0.3-0.8 [facility] Comment on above: Performed By: #### C BC ####[facility] Yfheeyljjc25[address] [place], [place] [address]Dr. Garima Pulliam Monocytes/100 WBC (Bld) 9.7 % Normal 1.7-12.0 [facility] Comment on above: Performed By: #### C BC ####[facility] [address]mubqlqymu[address] [place], [place] [address]Dr. Garima Pulliam NEUT # 4.9 103/ul Normal 1.4-6.5 [facility] Comment on above: Performed By: #### C BC ####[facility] Hjvfferakv[address] [place], [place] [address]Dr. Garima Pulliam Neutrophils/100 WBC (Bld) 62.7 % Normal 43.0-75.0 [facility] Comment on above: Performed By: #### C BC ####[facility] Dwufzleacd[address] [place], [place] [address]Dr. Garima Pulliam Platelet mean volume (Bld) [Entitic vol] 8.8 fL Critically low 9.5-13.5 [facility] Comment on above: Performed By: #### C BC ####[facility] Tplwmuxzel[address] [place], [place] [address]Dr. Garima Pulliam PLT 198 103/ul Normal 150-450 [facility] Comment on above: Performed By: #### C BC ####[facility] Mulovyxlta37[address] [place] [address]Dr. Chapisrenu Pulliam RBC 4.77 106/ul Normal 4.70-6.10 [facility] Comment on above: Performed By: #### C BC ####[facility] Jaoeosuqpc2142 [place] [address]Dr. Garima Pulliam WBC 7.9 103/ul Normal 4.0-11.0 [facility] Comment on above: Performed By: #### C BC ####[facility] Otcvifslbh1682 [place] [address]Dr. Garima Pulliam D-DIMERon 03-22-2023 D-DIMER 0.85 mg/L FEU Critically high <=0.59 [facility] Comment on above: Performed By: #### D DIM ####[facility] Bomjyyrruw[address] [place], [place] [address]Dr. Garima Pulliam D-DIMER COMMENTS SEE BELOW Normal [facility] Comment on above: Result Comment: Incr eases [...] Performed By: #### D DIM ####[facility] Bwjlktxpqa1427 [place] [address]Dr. Garima Pulliam PROF CHEM 8 (BAS METB)on Anion gap [Moles/Vol] 6.9 mmol/L Normal [facility] Comment on above: Performed By: #### B ALUM OPERATOR, BMP ####[facility] Xxflmjflic6022 [place] [address]Dr. Garima Pulliam Calcium [Mass/Vol] 8.9 mg/dL Normal 8.5-10.[address] [facility] Comment on above: Performed By: #### B ALUM OPERATOR, BMP ####[facility] Eealswbcdd7089 [place] [id number]. Garima Pulliam Chloride [Moles/Vol] 101 mmol/L Normal 98-107 [facility] Comment on above: Performed By: #### B ALUM OPERATOR, BMP ####[facility] Drldldcwim7510 [place] [id number]. Garima Pulliam CO2 [Moles/Vol] 30.7 mmol/L Normal 21.0-32.0 [facility] Comment on above: Performed By: #### B ALUM OPERATOR, BMP ####[facility] Xmueesocdh4898 [place] [id number]. Garima Pulliam Creatinine [Mass/Vol] 0.82 mg/dL Normal 0.70-1.30 [facility] Comment on above: Performed By: #### B ALUM OPERATOR, BMP ####[facility] Plvgdownxo8473 [place] [address]Dr. Garima Pulliam EGFR-AF MOZAMBICAN >60 Normal >=60 [facility] Comment on above: Performed By: #### B ALUM OPERATOR, BMP ####[facility] Dzykhqmime1985 [place] [address]Dr. Garima Pulliam EGFR-NON AF MOZAMBICAN >60 Normal >=60 [facility] Comment on above: Performed By: #### B ALUM OPERATOR, BMP ####[facility] Qvfmzsusdn9[address] [place], [place] [address]Dr. Garima Pulliam Glucose [Mass/Vol] 339 mg/dL Critically high 74-106 [facility] Comment on above: Performed By: #### B ALUM OPERATOR, BMP ####[facility] Tpkjygwflz1371 [place] [address]Dr. Gairma Pulliam Potassium [Moles/Vol] 3.6 mmol/L Normal 3.5-5.1 [facility] Comment on above: Performed By: #### B ALUM OPERATOR, BMP ####[facility] Wqfdhfrejz3469 [place] [address]Dr. Garima Pulliam Sodium [Moles/Vol] 135 mmol/L Critically low 136-145 [facility] Comment on above: Performed By: #### B ALUM OPERATOR, BMP ####[facility] Mpmkktatzt3408 [place] [id number]. Garima Pulliam Urea nitrogen [Mass/Vol] 11.0 mg/dL Normal 7.0-18.0 [facility] Comment on above: Performed By: #### B ALUM OPERATOR, BMP ####[facility] Ywpnhmgyrv6415 [place] [address]Dr. Garima Pulliam Urea nitrogen/Creatinine [Mass ratio] 13.4 mg/mg Normal [facility] Comment on above: Performed By: #### B ALUM OPERATOR, BMP ####[facility] Zgrkhnncle79[address] [place], [place] [address]Dr. Garima Pulliam US VERONICA DOP LEG BILon 023 US VERONICA DOP LEG BENOIT Normal [facility] BNPon 03-18-2023 Natriuretic peptide B (Bld) [Mass/Vol] 226.0 pg/mL Normal <=900.0 [facility] Comment on above: Performed By: #### B ALUM OPERATOR, BMP ####[facility] Ehfvgegdfn[address] [place], [place] [address]Dr. Garima Pulliam CBC AUTO DIFFon 03-18-2023 BASO # 0.0 103/ul Normal 0.0-0.1 [facility] Comment on above: Performed By: #### C BC ####[facility] Jyaehmkwoa[address] [place], [place] [address]Dr. Garima Heraclio Basophils/100 WBC (Bld) 0.2 % Normal 0.2-2.0 [facility] Comment on above: Performed By: #### C BC ####[facility] Qzsuduvese7[address] [place], [place] [address]Dr. Garima Pulliam EO # 0.3 103/ul Normal 0.0-0.7 [facility] Comment on above: Performed By: #### C BC ####[facility] Sqnftnxigb12[address] [place], [place] [address]Dr. Garima Heraclio Eosinophils/100 WBC (Bld) 2.5 % Normal 0.9-7.0 [facility] Comment on above: Performed By: #### C BC ####[facility] Icinviyiey3040[address] [place], [place] [address]Dr. Garima Pulliam Erythrocyte distribution width (RBC) [Ratio] 13.2 % Normal 11.0-15.0 [facility] Comment on above: Performed By: #### C BC ####[facility] Pbokxmuqst1019 [place] [address]Dr. Garima Pulliam Hematocrit (Bld) [Volume fraction] 45.8 % Normal 42.0-54.0 [facility] Comment on above: Performed By: #### C BC ####[facility] Avdyrjesfb4265 [place] [address]Dr. Garima Pulliam Hemoglobin (Bld) [Mass/Vol] 15.3 g/dL Normal 14.0-18.0 [facility] Comment on above: Performed By: #### C BC ####[facility] Fhgllsnxuf[address] [place], [place] [address]Dr. Garima Heraclio IG # 0.02 10e3/ul Normal 0.00-0.03 [facility] Comment on above: Performed By: #### C BC ####[facility] Lpwlkzxgzr7[address] [place], [place] [address]Dr. Garima Pulliam IG % 0.2 % Normal 0.0-0.5 [facility] Comment on above: Performed By: #### C BC ####[facility] Cqhrkawwqd[address] [place], [place] [address]Dr. Garima Heraclio LYMPH # 1.8 103/ul Normal 1.2-3.8 [facility] Comment on above: Performed By: #### C BC ####[facility] Hxromndwvd4228[address] [place], [place] [address]Dr. Chapisrenu Pulliam Lymphocytes/100 WBC (Bld) 18.3 % Critically low 20.5-60.0 [facility] Comment on above: Performed By: #### C BC ####[facility] Wflqxmmnqf7986[address] [place], [place] [address]Dr. Chapisrenu Pulliam MANUAL DIFF REQ NO Normal [facility] [place] Comment on above: Performed By: #### C BC ####[facility] Vjstrwurws[address] [place], [place] [address]Dr. Garima Pulliam MCH (RBC) [Entitic mass] 30.5 pg Normal 25.9-34.0 [facility] Comment on above: Performed By: #### C BC ####[facility] Tmfgbnjjzp2208 [place] [address]Dr. Garima Pulliam MCHC (RBC) [Mass/Vol] 33.4 g/dL Normal 29.9-35.2 [facility] Comment on above: Performed By: #### C BC ####[facility] Hcpxpfynrn0753 [place] [address]Dr. Garima Pulliam MCV (RBC) [Entitic vol] 91.2 fL Normal 80.0-94.0 [facility] Comment on above: Performed By: #### C BC ####[facility] Pvhkcuzyib4[address] [place], [place] [address]DrAdalberto Garima Heraclio MONO # 0.8 103/ul Normal 0.3-0.8 [facility] Comment on above: Performed By: #### C BC ####[facility] Zyqqhkrpaf[address] [place], [place] [address]Dr. Garima Heraclio Monocytes/100 WBC (Bld) 7.6 % Normal 1.7-12.0 [facility] Comment on above: Performed By: #### C BC ####[facility] Cupexxpzix[address] [place], [place] [address]Dr. Garima Pulliam NEUT # 7.0 103/ul Critically high 1.4-6.5 [facility] [place] Comment on above: Performed By: #### C BC ####[facility] Qyyyibogxh6636[address] [place], [place] [address]DrAdalberto Garima Heraclio Neutrophils/100 WBC (Bld) 71.2 % Normal 43.0-75.0 [facility] Comment on above: Performed By: #### C BC ####[facility] Hmjgrrbzhj[address] [place], [place] [address]Dr. Garima Pulliam Platelet mean volume (Bld) [Entitic vol] 8.9 fL Critically low 9.5-13.5 [facility] Comment on above: Performed By: #### C BC ####[facility] Gvbhavbyrm0127 [place] [id number]. Garima Pulliam PLT 217 103/ul Normal 150-450 [facility] Comment on above: Performed By: #### C BC ####[facility] Tzjseqeqfe[address] [place], [place] [address]Dr. Garima Pulliam RBC 5.02 106/ul Normal 4.70-6.10 [facility] Comment on above: Performed By: #### C BC ####[facility] Cfymagxmzy[address] [place], [place] [address]Dr. Garima Pulliam WBC 9.8 103/ul Normal 4.0-11.0 [facility] Comment on above: Performed By: #### C BC ####[facility] Yhglteypmf[address] [place], [place] [address]Dr. Garima Heraclio CRPon 03-18-2023 CRP 0.1 mg/dL Normal <=1.0 [facility] Comment on above: Performed By: #### C RP ####[facility] Dtmeelvnnt[address] [place], [place] [address]Dr. Garima Heraclio PROF CHEM 8 (BAS METB)on Anion gap [Moles/Vol] 10.4 mmol/L Normal [facility] Comment on above: Performed By: #### B ALUM OPERATOR, BMP ####[facility] Aexrtvcyst[address] [place], [place] [address]Dr. Garima Heraclio Calcium [Mass/Vol] 8.8 mg/dL Normal 8.5-10.1 [facility] Comment on above: Performed By: #### B ALUM OPERATOR, BMP ####[facility] Crwloiobcs9511 [place] [address]Dr. Garima Pulliam Chloride [Moles/Vol] 97 mmol/L Critically low 98-107 [facility] Comment on above: Performed By: #### B ALUM OPERATOR, BMP ####[facility] Hgithozise1825 [place] [address]Dr. Garima Pulliam CO2 [Moles/Vol] 31.2 mmol/L Normal 21.0-32.0 [facility] Comment on above: Performed By: #### B ALUM OPERATOR, BMP ####[facility] Cscsfjclvf7824 [place] [id number]. Garima Pulliam Creatinine [Mass/Vol] 0.91 mg/dL Normal 0.70-1.30 [facility] Comment on above: Performed By: #### B ALUM OPERATOR, BMP ####[facility] Leeaerbmxj4415 [place] [address]Dr. Garima Pulliam EGFR-AF MOZAMBICAN >60 Normal >=60 [facility] Comment on above: Performed By: #### B ALUM OPERATOR, BMP ####[facility] Wtbyelbufe5719 [place] [address]Dr. Garima Pulliam EGFR-NON AF MOZAMBICAN >60 Normal >=60 [facility] Comment on above: Performed By: #### B ALUM OPERATOR, BMP ####[facility] Dcmhavkrvn[address] [place], [place] [address]Dr. Garima Pulliam Glucose [Mass/Vol] 315 mg/dL Critically high 74-106 [facility] Comment on above: Performed By: #### B ALUM OPERATOR, BMP ####[facility] Nwvxpntjja409[address] [place], [place] [address]Dr. Garima Pulliam Potassium [Moles/Vol] 3.6 mmol/L Normal 3.5-5.1 [facility] Comment on above: Performed By: #### B ALUM OPERATOR, BMP ####[facility] Meoddjcufd[address] [place], [place] [address]Dr. Garima Pulliam Sodium [Moles/Vol] 135 mmol/L Critically low 136-145 [facility] Comment on above: Performed By: #### B ALUM OPERATOR, BMP ####[facility] Vxweoldaxs[address] [place], [place] [address]Dr. Garima Pulliam Urea nitrogen [Mass/Vol] 7.0 mg/dL Normal 7.0-18.0 [facility] Comment on above: Performed By: #### B ALUM OPERATOR, BMP ####[facility] Qfyirftuqf[address] [place], [place] [address]Dr. Garima Pulliam Urea nitrogen/Creatinine [Mass ratio] 7.7 mg/mg Normal [facility] Comment on above: Performed By: #### B ALUM OPERATOR, BMP ####[facility] Zzruptkunr[address] [place], [place] [address]Dr. Garima Pulliam SED RATE WESTERGRENon 2022 SED RATE 8 mm/hr Normal <=20 [facility] Comment on above: Performed By: #### S EDR ####[facility] [address]rlhmtehr[address] [place], [place] [address]Dr. Garima Pulliam BNPon 03-16-2023 Natriuretic peptide B (Bld) [Mass/Vol] 241.0 pg/mL Normal <=900.0 [facility] Comment on above: Performed By: #### B ALUM OPERATOR, BMP, HSTROPN ####[facility] Tutnmkinjy[address] [place], [place] [address]Dr. Garima Heraclio CBC AUTO DIFFon 03-16-2023 BASO # 0.0 103/ul Normal 0.0-0.1 [facility] Comment on above: Performed By: #### C BC ####[facility] Imxrerzxvi[address] [place], [place] [address]Dr. Garima Heraclio Basophils/100 WBC (Bld) 0.2 % Normal 0.2-2.0 [facility] Comment on above: Performed By: #### C BC ####[facility] Luhhnwce[address] [place], [place] [address]Dr. Chapisrenu Heraclio EO # 0.2 103/ul Normal 0.0-0.7 [facility] Comment on above: Performed By: #### C BC ####[facility] Twqhkvodlf[address] [place], [place] [address]Dr. Garima Heraclio Eosinophils/100 WBC (Bld) 2.7 % Normal 0.9-7.0 [facility] Comment on above: Performed By: #### C BC ####[facility] Vdzgitgpjc7[address] [place], [place] [address]Dr. Garima Heraclio Erythrocyte distribution width (RBC) [Ratio] 13.1 % Normal 11.0-15.0 [facility] Comment on above: Performed By: #### C BC ####[facility] Dfyhyekhld7[address] [place], [place] [address]Dr. Garima Heraclio Hematocrit (Bld) [Volume fraction] 41.8 % Critically low 42.0-54.0 [facility] Comment on above: Performed By: #### C BC ####[facility] Yqoigtlfdg16[address] [place] [address]DrAdalberto Garima Pulliam Hemoglobin (Bld) [Mass/Vol] 14.0 g/dL Normal 14.0-18.0 [facility] Comment on above: Performed By: #### C BC ####[facility] Zfrubhhkaf78[address] [place] [address]DrAdalberto Pulliam IG # 0.03 10e3/ul Normal 0.00-0.03 [facility] Comment on above: Performed By: #### C BC ####[facility] Vipasmblcc[address] [place], [place] [address]DrAdalberto Chapisrenu Pulliam IG % 0.3 % Normal 0.0-0.5 [facility] Comment on above: Performed By: #### C BC ####[facility] Fndxkaaueg[address] [place], [place] [address]DrAdalberto Chapisrenu Pulliam LYMPH # 2.1 103/ul Normal 1.2-3.8 [facility] Comment on above: Performed By: #### C BC ####[facility] Immpzxpwpl[address] [place], [place] [address]DrAdalberto Chapisrenu Pulliam Lymphocytes/100 WBC (Bld) 24.2 % Normal 20.5-60.0 [facility] Comment on above: Performed By: #### C BC ####[facility] Ptgaqixmax[address] [place], [place] [address]DrAdalberto Pulliam MANUAL DIFF REQ NO Normal [facility] [place] Comment on above: Performed By: #### C BC ####[facility] Rhiybntnzn37[address] [place], [place] [address]DrAdalberto Pulliam MCH (RBC) [Entitic mass] 30.2 pg Normal 25.9-34.0 [facility] Comment on above: Performed By: #### C BC ####[facility] Vwewxdmpks[address]50[address] [place], [place] [address]DrAdalberto Pulliam MCHC (RBC) [Mass/Vol] 33.5 g/dL Normal 29.9-35.2 [facility] Comment on above: Performed By: #### C BC ####[facility] Mnixgssomr[address] [place], [place] [address]DrAdalberto Pulliam MCV (RBC) [Entitic vol] 90.1 fL Normal 80.0-94.0 [facility] Comment on above: Performed By: #### C BC ####[facility] Cwsqhwflhb239[address] [place], [place] [address]DrAdalberto Pulliam MONO # 0.6 103/ul Normal 0.3-0.8 [facility] Comment on above: Performed By: #### C BC ####[facility] Svlutmxmld4994[address] [place], [place] [address]DrAdalberto Pulliam Monocytes/100 WBC (Bld) 7.4 % Normal 1.7-12.0 [facility] Comment on above: Performed By: #### C BC ####[facility] Iyfxfnihid3654[address] [place], [place] [address]DrAdalberto Pulliam NEUT # 5.6 103/ul Normal 1.4-6.5 [facility] Comment on above: Performed By: #### C BC ####[facility] Bqjsvgrnrr1224[address] [place], [place] [address]DrAdalberto Pulliam Neutrophils/100 WBC (Bld) 65.2 % Normal 43.0-75.0 [facility] Comment on above: Performed By: #### C BC ####[facility] Hlccfnwrcz8156[address] [place], [place] [address]DrAdalberto Pulliam Platelet mean volume (Bld) [Entitic vol] 8.7 fL Critically low 9.5-13.5 [facility] Comment on above: Performed By: #### C BC ####[facility] Sjluhrtwpn[address] [place], [place] [address]DrAdalberto Pulliam PLT 195 103/ul Normal 150-450 [facility] Comment on above: Performed By: #### C BC ####[facility] Jbvefjkhwe785[address] [place], [place] [address]DrAdalberto Pulliam RBC 4.64 106/ul Critically low 4.70-6.10 [facility] [place] Comment on above: Performed By: #### C BC ####[facility] Omdhhrugyg9485[address] [place], [place] [address]Dr. Chapisrenu Pulliam WBC 8.6 103/ul Normal 4.0-11.0 [facility] Comment on above: Performed By: #### C BC ####[facility] Vpcxusulqe4[address] [place], [place] [address]Dr. Garima Pulliam PROF CHEM 8 (BAS METB)on Anion gap [Moles/Vol] 6.7 mmol/L Normal [facility] Comment on above: Performed By: #### B ALUM OPERATOR, BMP, HSTROPN ####[facility] Usrpikajtc3[address] [place], [place] [address]Dr. Garima Pulliam Calcium [Mass/Vol] 8.8 mg/dL Normal 8.5-10.1 [facility] Comment on above: Performed By: #### B ALUM OPERATOR, BMP, HSTROPN ####[facility] Xrzvnryycv4899[address] [place], [place] [address]Dr. Garima Pulliam Chloride [Moles/Vol] 106 mmol/L Normal 98-107 [facility] Comment on above: Performed By: #### B ALUM OPERATOR, BMP, HSTROPN ####[facility] Vjppbwammi85[address] [place], [place] [address]Dr. Garima Pulliam CO2 [Moles/Vol] 31.4 mmol/L Normal 21.0-32.0 [facility] Comment on above: Performed By: #### B ALUM OPERATOR, BMP, HSTROPN ####[facility] Jqrmidincy8327[address] [place], [place] [address]Dr. Garima Pulliam Creatinine [Mass/Vol] 0.75 mg/dL Normal 0.70-1.30 [facility] Comment on above: Performed By: #### B ALUM OPERATOR, BMP, HSTROPN ####[facility] Wsxldtxrha0639[address] [place], [place] [address]Dr. Garima Pulliam EGFR-AF MOZAMBICAN >60 Normal >=60 [facility] Comment on above: Performed By: #### B ALUM OPERATOR, BMP, HSTROPN ####[facility] [address]pc[address]znlai50[address] [place] [address]Dr. Garima Pulliam EGFR-NON AF MOZAMBICAN >60 Normal >=60 [facility] Comment on above: Performed By: #### B ALUM OPERATOR, BMP, HSTROPN ####[facility] Hylhrxghep3[address] [place] [address]Dr. Garima Pulliam Glucose [Mass/Vol] 161 mg/dL Critically high 74-106 T [facility] Comment on above: Performed By: #### B ALUM OPERATOR, BMP, HSTROPN ####[facility] Bbwmzqdhan7835 [place] [address]Dr. Garima Pulliam Potassium [Moles/Vol] 4.1 mmol/L Normal 3.5-5.1 [facility] Comment on above: Performed By: #### B ALUM OPERATOR, BMP, HSTROPN ####[facility] Dgncxkgski7455 [place] [address]Dr. Garima Pulliam Sodium [Moles/Vol] 140 mmol/L Normal 136-145 [facility] Comment on above: Performed By: #### B ALUM OPERATOR, BMP, HSTROPN ####[facility] Olxvcrahae1174 [place] [address]Dr. Garima Pulliam Urea nitrogen [Mass/Vol] 7.0 mg/dL Normal 7.0-18.0 [facility] Comment on above: Performed By: #### B ALUM OPERATOR, BMP, HSTROPN ####[facility] Lkowclldgh3155 [place] [address]Dr. Garima Pulliam Urea nitrogen/Creatinine [Mass ratio] 9.3 mg/mg Normal [facility] Comment on above: Performed By: #### B ALUM OPERATOR, BMP, HSTROPN ####[facility] Tvvljeropu[address] [place], [place] [address]Dr. Garima Pulliam TROPONIN, HIGH SENSITIVITYon 03-16-2023 HSTROP 9.7 pg/mL Normal 4.0-76.1 [facility] Comment on above: Result Comment: CUT- OFF POINTS HAVE BEEN ESTABLISHED BASED ON THE FOURTH UNIVERSAL DEFINITIONS OF MYOCARDIALINFARCTION. THE UPPER REFERENCE LIMIT (URL) OF TROPONIN, DEFINED THE 99TH PERCENTILE OFcTnI DISTRIBUTION IN A REFERENCE POPULATION, HAS BEEN CONFIRMED THE DECISION THRESHOLDFOR OH DIAGNOSIS. Performed By: #### B ALUM OPERATOR, BMP, HSTROPN ####[facility] Tvlfaneqpl4[address] [place] [address]Dr. Garima Pulliam XR CHEST 1 Von 03-16-2023 XR CHEST 1 V Normal [facility] BNPon 03-06-2023 Natriuretic peptide B (Bld) [Mass/Vol] 111.0 pg/mL Normal <=900.0 [facility] Comment on above: Performed By: #### C MP, BNP, CK ####[facility] Moewnwpflw[address] [place], [place] [address]Dr. Garima Pulliam CBC AUTO DIFFon 03-06-2023 BASO # 0.0 103/ul Normal 0.0-0.1 [facility] Comment on above: Performed By: #### C BC ####[facility] Eftfviqcja[address] [place], [place] [address]Dr. Garima Heraclio Basophils/100 WBC (Bld) 0.2 % Normal 0.2-2.0 [facility] Comment on above: Performed By: #### C BC ####[facility] Bvcbvndnbz4[address] [place], [place] [address]Dr. Garima Pulliam EO # 0.3 103/ul Normal 0.0-0.7 [facility] Comment on above: Performed By: #### C BC ####[facility] Mtbnwhtcde6[address] [place], [place] [address]Dr. Garima Heraclio Eosinophils/100 WBC (Bld) 3.5 % Normal 0.9-7.0 [facility] Comment on above: Performed By: #### C BC ####[facility] Vzysoydgkj02[address] [place], [place] [address]Dr. Garima Pulliam Erythrocyte distribution width (RBC) [Ratio] 13.3 % Normal 11.0-15.0 [facility] Comment on above: Performed By: #### C BC ####[facility] Rpkpspmrfx037[address] [place], [place] [address]Dr. Garima Pulliam Hematocrit (Bld) [Volume fraction] 43.7 % Normal 42.0-54.0 [facility] Comment on above: Performed By: #### C BC ####[facility] Bnsrvujwjz0818 [place] [address]Dr. Garima Pulliam Hemoglobin (Bld) [Mass/Vol] 14.7 g/dL Normal 14.0-18.0 [facility] Comment on above: Performed By: #### C BC ####[facility] Carsprohxh[address]83 [place] [address]Dr. Garima Pulliam IG # 0.03 10e3/ul Normal 0.00-0.03 [facility] Comment on above: Performed By: #### C BC ####[facility] Fgqoncmnlz8581 [place] [address]Dr. Garima Pulliam IG % 0.4 % Normal 0.0-0.5 [facility] Comment on above: Performed By: #### C BC ####[facility] Nahrowyztw3939[address] [place], [place] [address]Dr. Garima Pulliam LYMPH # 2.0 103/ul Normal 1.2-3.8 [facility] Comment on above: Performed By: #### C BC ####[facility] Jsfiydaqwy[address] [place], [place] [address]Dr. Garima Pulliam Lymphocytes/100 WBC (Bld) 23.7 % Normal 20.5-60.0 [facility] Comment on above: Performed By: #### C BC ####[facility] Bgisybuhpm7401[address] [place], [place] [address]Dr. Garima Pulliam MANUAL DIFF REQ NO Normal [facility] [place] Comment on above: Performed By: #### C BC ####[facility] Uuwroaftig6554 [place] [address]Dr. Garima Pulliam MCH (RBC) [Entitic mass] 30.1 pg Normal 25.9-34.0 [facility] Comment on above: Performed By: #### C BC ####[facility] Wpyeidhpvv9112[address] [place], [place] [address]Dr. Garima Pulliam MCHC (RBC) [Mass/Vol] 33.6 g/dL Normal 29.9-35.2 [facility] Comment on above: Performed By: #### C BC ####[facility] Wauycqbpjh2753 [place] [address]DrAdalberto Pulliam MCV (RBC) [Entitic vol] 89.4 fL Normal 80.0-94.0 [facility] Comment on above: Performed By: #### C BC ####[facility] Fwebodlnoo[address] [place], [place] [address]DrAdalberto Pulliam MONO # 0.8 103/ul Normal 0.3-0.8 [facility] Comment on above: Performed By: #### C BC ####[facility] Wxthwmrclq9932[address] [place], [place] [address]DrAdalberto Pulliam Monocytes/100 WBC (Bld) 9.0 % Normal 1.7-12.0 [facility] Comment on above: Performed By: #### C BC ####[facility] Ucqbpryamf[address] [place], [place] [address]Dr. Garima Pulliam NEUT # 5.4 103/ul Normal 1.4-6.5 [facility] Comment on above: Performed By: #### C BC ####[facility] Aoqtrgpcve55[address] [place], [place] [address]DrAdalberto Pulliam Neutrophils/100 WBC (Bld) 63.2 % Normal 43.0-75.0 [facility] Comment on above: Performed By: #### C BC ####[facility] Urmealgvrg9[address] [place], [place] [address]DrAdalberto Pulliam Platelet mean volume (Bld) [Entitic vol] 9.0 fL Critically low 9.5-13.5 [facility] Comment on above: Performed By: #### C BC ####[facility] Xhiztetceg[address] [place], [place] [address]DrAdalberto Pulliam PLT 218 103/ul Normal 150-450 [facility] Comment on above: Performed By: #### C BC ####[facility] Txxhliifni6[address] [place], [place] [address]DrAdalberto Pulliam RBC 4.89 106/ul Normal 4.70-6.10 [facility] Comment on above: Performed By: #### C BC ####[facility] Arefdlyjaf4165 [place] [address]Dr. Garima Pulliam WBC 8.5 103/ul Normal 4.0-11.0 [facility] Comment on above: Performed By: #### C BC ####[facility] Lzjvafkjgj5438 [place] [address]Dr. Garima Heraclio CPKon 03-06-2023 CK [Catalytic activity/Vol] 191 U/L Normal 39-308 [facility] Comment on above: Performed By: #### C MP, BNP, CK ####[facility] Eyiyofsvhh[address] [place], [place] [address]Dr. Garima Pulliam PROF 14(COMP METB)on 023 Albumin [Mass/Vol] 3.6 g/dL Normal 3.4-5.0 [facility] Comment on above: Performed By: #### C MP, BNP, CK ####[facility] Yirwtlqwqj3071 [place] [address]Dr. Garima Pulliam Albumin/Globulin [Mass ratio] 1.2 {ratio} Normal [facility] Comment on above: Performed By: #### C MP, BNP, CK ####[facility] Zmyhnvxfuu5260 [place] [address]Dr. Garima Pulliam ALP [Catalytic activity/Vol] 91 U/L Normal 46-116 [facility] Comment on above: Performed By: #### C MP, BNP, CK ####[facility] Hdmubruysi3652 [place] [address]Dr. Garima Pulliam ALT [Catalytic activity/Vol] 33 U/L Normal 16-63 [facility] Comment on above: Performed By: #### C MP, BNP, CK ####[facility] Lzddvuqqwz4726 [place] [address]Dr. Garima Pulliam Anion gap [Moles/Vol] 10.3 mmol/L Normal [facility] Comment on above: Performed By: #### C MP, BNP, CK ####[facility] Ferxrgmacv7487 [place] [address]Dr. Garima Pulliam AST [Catalytic activity/Vol] 17 U/L Normal 15-37 [facility] Comment on above: Performed By: #### C MP, BNP, CK ####[facility] Ozxbmclkrq2868 [place] [address]Dr. Garima Pulliam Bilirubin [Mass/Vol] 0.4 mg/dL Normal 0.2-1.0 [facility] Comment on above: Performed By: #### C MP, BNP, CK ####[facility] Rbjmfjkvdd2291 [place] [address]Dr. Garima Pulliam Calcium [Mass/Vol] 9.1 mg/dL Normal 8.5-10.1 [facility] Comment on above: Performed By: #### C MP, BNP, CK ####[facility] Nauchytbao[address] [place], [place] [address]Dr. Garima Pulliam Chloride [Moles/Vol] 102 mmol/L Normal 98-107 [facility] Comment on above: Performed By: #### C MP, BNP, CK ####[facility] Aadsvavrth2843 [place] [address]Dr. Garima Pulliam CO2 [Moles/Vol] 29.7 mmol/L Normal 21.0-32.0 [facility] Comment on above: Performed By: #### C MP, BNP, CK ####[facility] Fbprltvqcm5158 [place] [address]Dr. Garima Pulliam Creatinine [Mass/Vol] 0.79 mg/dL Normal 0.70-1.30 [facility] Comment on above: Performed By: #### C MP, BNP, CK ####[facility] Lxyzrsefjd9440 [place] [address]Dr. Garima Pulliam EGFR-AF MOZAMBICAN >60 Normal >=60 [facility] Comment on above: Performed By: #### C MP, BNP, CK ####[facility] Uezgqouilt0497 [place] [address]Dr. Garima Pulliam EGFR-NON AF MOZAMBICAN >60 Normal >=60 [facility] Comment on above: Performed By: #### C MP, BNP, CK ####[facility] Ohbzkmwfhy5501 [place] [address]Dr. Garima Pulliam Globulin (S) [Mass/Vol] 3.0 g/dL Normal [facility] Comment on above: Performed By: #### C MP, BNP, CK ####[facility] Wcrackpssp3618 [place] [address]Dr. Garima Pulliam Glucose [Mass/Vol] 202 mg/dL Critically high 74-106 T [facility] Comment on above: Performed By: #### C MP, BNP, CK ####[facility] S[address]ucgafwyo[address] [place], [place] [address]Dr. Garima Pulliam Potassium [Moles/Vol] 4.0 mmol/L Normal 3.5-5.1 [facility] Comment on above: Performed By: #### C MP, BNP, CK ####[facility] Gqpvltyqdb[address] [place], [place] [address]Dr. Garima Pulliam Protein [Mass/Vol] 6.6 g/dL Normal 6.4-8.[address] [facility] Comment on above: Performed By: #### C MP, BNP, CK ####[facility] Nwzmpnxtje8[address] [place], [place] [address]Dr. Garima Pulliam Sodium [Moles/Vol] 138 mmol/L Normal 136-145 [facility] Comment on above: Performed By: #### C MP, BNP, CK ####[facility] Svbekeqblv4[address] [place], [place] [address]Dr. Garima Pulliam Urea nitrogen [Mass/Vol] 10.0 mg/dL Normal 7.0-18.0 [facility] Comment on above: Performed By: #### C MP, BNP, CK ####[facility] Qpiypmgngm9[address] [place], [place] [address]Dr. Garima Pulliam Urea nitrogen/Creatinine [Mass ratio] 12.7 mg/mg Normal [facility] Comment on above: Performed By: #### C MP, BNP, CK ####[facility] Swgcfbmwce[address] [place], [place] [address]DrAdalberto Pulliam US VERONICA DOP LEG BILon 023 US VERONICA DOP LEG BENOIT Normal The [facility] CBC AUTO DIFFon 01-13-2023 BASO # 0.0 103/ul Normal 0.0-0.1 [facility] Comment on above: Performed By: #### C BC ####[facility] Sbcwysufeq0689 [place] [address]DrAdalberto Pulliam Basophils/100 WBC (Bld) 0.0 % Critically low 0.2-2.0 [facility] Comment on above: Performed By: #### C BC ####[facility] Jujzdbdtfp5380 [place] [address]DrAdalberto Pulliam EO # 0.0 103/ul Normal 0.0-0.7 [facility] Comment on above: Performed By: #### C BC ####[facility] Xggmttqmao4278 [place] [address]DrAdalberto Pulliam Eosinophils/100 WBC (Bld) 0.0 % Critically low 0.9-7.0 [facility] Comment on above: Performed By: #### C BC ####[facility] Fvjerhfqtb5395 [place] [address]DrAdalberto Pulliam Erythrocyte distribution width (RBC) [Ratio] 13.2 % Normal 11.0-15.0 [facility] Comment on above: Performed By: #### C BC ####[facility] Gvfrnjaqbr9910 [place] [address]DrAdalberto Pulliam Hematocrit (Bld) [Volume fraction] 46.7 % Normal 42.0-54.0 [facility] Comment on above: Performed By: #### C BC ####[facility] Zonothazcu9339 [place] [address]DrAdalberto Pulliam Hemoglobin (Bld) [Mass/Vol] 15.6 g/dL Normal 14.0-18.0 [facility] Comment on above: Performed By: #### C BC ####[facility] Qemnnmctfb7161 [place] [address]DrAdalberto Pulliam IG # 0.01 10e3/ul Normal 0.00-0.03 [facility] Comment on above: Performed By: #### C BC ####[facility] Nsqoyjpaoq6997 [place] [address]DrAdalberto Chapisrenu Pulliam IG % 0.2 % Normal 0.0-0.5 [facility] Comment on above: Performed By: #### C BC ####[facility] Lwpiqpdqky0591 [place] [id number] Chapisrenu Pulliam LYMPH # 0.8 103/ul Critically low 1.2-3.8 [facility] Comment on above: Performed By: #### C BC ####[facility] Mjimmwlsqx5834 [place] [address]DrAdalberto Pulliam Lymphocytes/100 WBC (Bld) 12.7 % Critically low 20.5-60.0 [facility] Comment on above: Performed By: #### C BC ####[facility] Kszpdtnumt3907 [place] [address]DrAdalberto Pulliam MANUAL DIFF REQ NO Normal [facility] Comment on above: Performed By: #### C BC ####[facility] Ribsyzthbg4456 [place] [id number] Garima Heraclio MCH (RBC) [Entitic mass] 30.2 pg Normal 25.9-34.0 [facility] Comment on above: Performed By: #### C BC ####[facility] Pjrdpgelrr9048 [place] [address]DrAdalberto Chapisrenu Pulliam MCHC (RBC) [Mass/Vol] 33.4 g/dL Normal 29.9-35.2 [facility] Comment on above: Performed By: #### C BC ####[facility] Ufuobmwwbw5734 [place] [id number] Pulliam MCV (RBC) [Entitic vol] 90.3 fL Normal 80.0-94.0 [facility] Comment on above: Performed By: #### C BC ####[facility] Qeposeetjh8621 [place] [id number] Pulliam MONO # 0.1 103/ul Critically low 0.3-0.8 [facility] Comment on above: Performed By: #### C BC ####[facility] Tweerslcar1365 [place] [address]Dr. Garima Pulliam Monocytes/100 WBC (Bld) 0.9 % Critically low 1.7-12.0 [facility] Comment on above: Performed By: #### C BC ####[facility] Ihrhesouyi8575 [place] [address]Dr. Garima Pulliam NEUT # 5.6 103/ul Normal 1.4-6.5 [facility] Comment on above: Performed By: #### C BC ####[facility] Oqanyhgrua8883 [place] [address]Dr. Garima Pulliam Neutrophils/100 WBC (Bld) 86.2 % Critically high 43.0-75.0 [facility] Comment on above: Performed By: #### C BC ####[facility] Dmogwodyyb3749 [place] [address]Dr. Garima Pulliam Platelet mean volume (Bld) [Entitic vol] 9.1 fL Critically low 9.5-13.5 [facility] Comment on above: Performed By: #### C BC ####[facility] Cywkclavyk[address] [place], [place] [address]Dr. Garima Pulliam PLT 169 103/ul Normal 150-450 [facility] Comment on above: Performed By: #### C BC ####[facility] Fvbjiqnkhr1889 [place] [address]Dr. Garima Pulliam RBC 5.17 106/ul Normal 4.70-6.10 [facility] Comment on above: Performed By: #### C BC ####[facility] Eftkzarhxq9342 [place] [id number]. Garima Pulliam WBC 6.5 103/ul Normal 4.0-11.0 [facility] Comment on above: Performed By: #### C BC ####[facility] Rcvxkrjznj[address] [place], [place] [address]Dr. Garima Pulliam D-DIMERon 01-13-2023 D-DIMER 0.41 mg/L FEU Normal <=0.59 [facility] Comment on above: Performed By: #### D DIM ####[facility] Sgexwivkxe7639 [place] [address]Dr. Garima Pulliam D-DIMER COMMENTS SEE BELOW Normal [facility] Comment on above: Result Comment: Incr [...] Performed By: #### D DIM ####[facility] Lcvmtvflih7698 [place] [address]Dr. Garima Pulliam PROF 14(COMP METB)on 023 Albumin [Mass/Vol] 3.4 g/dL Normal 3.4-5.0 [facility] Comment on above: Performed By: #### C MP ####[facility] Wzfulsayte3118 [place] [address]Dr. Garima Pulliam Albumin/Globulin [Mass ratio] 1.3 {ratio} Normal [facility] Comment on above: Performed By: #### C MP ####[facility] Yigseuzhex0384 [place] [address]Dr. Garima Pulliam ALP [Catalytic activity/Vol] 83 U/L Normal 46-116 [facility] Comment on above: Performed By: #### C MP ####[facility] [facility] [address]zjirpryc[address] [place] [address]Dr. Garima Pulliam ALT [Catalytic activity/Vol] 25 U/L Normal 16-63 [facility] Comment on above: Performed By: #### C MP ####[facility] Varovwwzkx78[address] [place] [address]Dr. Garima Pulliam Anion gap [Moles/Vol] 14.5 mmol/L Normal [facility] Comment on above: Performed By: #### C MP ####[facility] Spkckzorzg48[address] [place] [id number]. Garima Pulliam AST [Catalytic activity/Vol] 19 U/L Normal 15-37 [facility] Comment on above: Performed By: #### C MP ####[facility] Pfbzqrcaqp2363 [place] [id number]. Garima Pulliam Bilirubin [Mass/Vol] 0.4 mg/dL Normal 0.2-1.0 The [facility] Comment on above: Performed By: #### C MP ####[facility] Ollkcaktfa2194 [place] [id number]. Garima Pulliam Calcium [Mass/Vol] 8.7 mg/dL Normal 8.5-10.1 [facility] Comment on above: Performed By: #### C MP ####[facility] Lernxmtybz1485 [place] [id number]. Garima Pulliam Chloride [Moles/Vol] 104 mmol/L Normal 98-107 [facility] Comment on above: Performed By: #### C MP ####[facility] Jyacskwqux86[address] [place] [id number]. Garima Pulliam CO2 [Moles/Vol] 24.5 mmol/L Normal 21.0-32.0 The [facility] Comment on above: Performed By: #### C MP ####[facility] Tvusjrkgop8[address] [place] [id number]. Garima Pulliam Creatinine [Mass/Vol] 0.70 mg/dL Normal 0.70-1.30 The [facility] Comment on above: Performed By: #### C MP ####[facility] Ruzwsftjzf7205 [place] [id number]. Garima Pulliam EGFR-AF MOZAMBICAN >60 Normal >=60 The [facility] Comment on above: Performed By: #### C MP ####[facility] Wveitrohxl6074 [place] [id number]. Garima Pulliam EGFR-NON AF MOZAMBICAN >60 Normal >=60 [facility] Comment on above: Performed By: #### C MP ####[facility] Opjwersnsx[address] [place], [place] [id number]. Garima Pulliam Globulin (S) [Mass/Vol] 2.6 g/dL Normal [facility] Comment on above: Performed By: #### C MP ####[facility] Lgdaqynozu[address] [place], [place] [address]Dr. Garima Pulliam Glucose [Mass/Vol] 196 mg/dL Critically high 74-106 T [facility] Comment on above: Performed By: #### C MP ####[facility] Dpbnucwjaf8[address] [place], [place] [address]Dr. Garima Pulliam Potassium [Moles/Vol] 4.0 mmol/L Normal 3.5-5.1 [facility] Comment on above: Performed By: #### C MP ####[facility] Ercorbwpbu[address] [place], [place] [address]Dr. Garima Pulliam Protein [Mass/Vol] 6.0 g/dL Critically low 6.4-8.2 [facility] Comment on above: Performed By: #### C MP ####[facility] Jabckcdgzl64[address] [place], [place] [address]Dr. Garima Pulliam Sodium [Moles/Vol] 139 mmol/L Normal 136-145 [facility] Comment on above: Performed By: #### C MP ####[facility] Hjhxgvtuiv[address] [place], [place] [address]Dr. Garima Pulliam Urea nitrogen [Mass/Vol] 7.0 mg/dL Normal 7.0-18.0 [facility] Comment on above: Performed By: #### C MP ####[facility] Onokszmgtc7538[address] [place], [place] [address]Dr. Garima Pulliam Urea nitrogen/Creatinine [Mass ratio] 10.0 mg/mg Normal [facility] Comment on above: Performed By: #### C MP ####[facility] Jvdopceguf4816[address] [place], [place] [address]Dr. Garima Pulliam BNPon 01-12-2023 Natriuretic peptide B (Bld) [Mass/Vol] 141.0 pg/mL Normal <=900.0 [facility] Comment on above: Performed By: #### C MP, BNP, HSTROPN ####[facility] Iovtysjgfe7312 [place] [id number]. Garima Heraclio CBC AUTO DIFFon 01-12-2023 BASO # 0.0 103/ul Normal 0.0-0.1 [facility] Comment on above: Performed By: #### C BC ####[facility] Mdxguruxac233[address] [place], [place] [id number]. Garima Pulliam Basophils/100 WBC (Bld) 0.2 % Normal 0.2-2.0 The [facility] Comment on above: Performed By: #### C BC ####[facility] Soqzfbwqat34[address] [place], [place] [address]Dr. Garima Pulliam EO # 0.2 103/ul Normal 0.0-0.7 The [facility] Comment on above: Performed By: #### C BC ####[facility] Znzztlkhul96[address] [place], [place] [address]Dr. Garima Pulliam Eosinophils/100 WBC (Bld) 2.7 % Normal 0.9-7.0 The [facility] Comment on above: Performed By: #### C BC ####[facility] Diodljizhp204[address] [place], [place] [address]Dr. Chapisrenu Pulliam Erythrocyte distribution width (RBC) [Ratio] 13.3 % Normal 11.0-15.0 The [facility] Comment on above: Performed By: #### C BC ####[facility] Zururyuwlf[address] [place], [place] [address]Dr. Garima Pulliam Hematocrit (Bld) [Volume fraction] 42.3 % Normal 42.0-54.0 The [facility] Comment on above: Performed By: #### C BC ####[facility] Bsgaypfpjk6[address] [place], [place] [address]Dr. Chapisrenu Pulliam Hemoglobin (Bld) [Mass/Vol] 14.3 g/dL Normal 14.0-18.0 The [facility] Comment on above: Performed By: #### C BC ####[facility] Vxxhjbsncb48[address] [place], [place] [address]Dr. Garima Pulliam IG # 0.02 10e3/ul Normal 0.00-0.03 [facility] Comment on above: Performed By: #### C BC ####[facility] Psglzsyevp2613 [place] [address]Dr. Chapisrenu Pulliam IG % 0.2 % Normal 0.0-0.5 [facility] Comment on above: Performed By: #### C BC ####[facility] Jrrecjurmu9660 [place] [address]Dr. Garima Pulliam LYMPH # 2.6 103/ul Normal 1.2-3.8 [facility] Comment on above: Performed By: #### C BC ####[facility] Ecuijftxfx65[address] [place] [address]Dr. Chapisrenu Pulliam Lymphocytes/100 WBC (Bld) 29.6 % Normal 20.5-60.0 [facility] Comment on above: Performed By: #### C BC ####[facility] Vvbhskyfzz07[address] [place] [address]Dr. Garima Pulliam MANUAL DIFF REQ NO Normal [facility] Comment on above: Performed By: #### C BC ####[facility] Ufmitydoul4085 [place] [address]Dr. Garima Pulliam MCH (RBC) [Entitic mass] 30.2 pg Normal 25.9-34.0 [facility] Comment on above: Performed By: #### C BC ####[facility] Mxufbcoxia8568 [place] [address]Dr. Garima Pulliam MCHC (RBC) [Mass/Vol] 33.8 g/dL Normal 29.9-35.2 [facility] Comment on above: Performed By: #### C BC ####[facility] Pamkaebyoa[address] [place], [place] [address]Dr. Garima Pulliam MCV (RBC) [Entitic vol] 89.2 fL Normal 80.0-94.0 [facility] Comment on above: Performed By: #### C BC ####[facility] Gyfwxwzbkl[address] [place], [place] [address]Dr. Garima Pulliam MONO # 0.7 103/ul Normal 0.3-0.8 The [facility] Comment on above: Performed By: #### C BC ####[facility] Ncqzqzylok6430 [place] [address]Dr. Garima Pulliam Monocytes/100 WBC (Bld) 8.3 % Normal 1.7-12.0 [facility] Comment on above: Performed By: #### C BC ####[facility] Ezpuxuturf[address] [place] [address]Dr. Garima Pulliam NEUT # 5.1 103/ul Normal 1.4-6.5 [facility] Comment on above: Performed By: #### C BC ####[facility] Gxfwmdyjjm5973 [place] [address]Dr. Garima Pulliam Neutrophils/100 WBC (Bld) 59.0 % Normal 43.0-75.0 [facility] Comment on above: Performed By: #### C BC ####[facility] Usdboccmyz3315 [place] [address]Dr. Garima Pulliam Platelet mean volume (Bld) [Entitic vol] 8.7 fL Critically low 9.5-13.5 [facility] Comment on above: Performed By: #### C BC ####[facility] Sguxiuclzm0385 [place] [address]Dr. Garima Pulliam PLT 182 103/ul Normal 150-450 [facility] Comment on above: Performed By: #### C BC ####[facility] Oejrhsusno1288 [place] [address]Dr. Garima Pulliam RBC 4.74 106/ul Normal 4.70-6.10 [facility] Comment on above: Performed By: #### C BC ####[facility] Bsimemufky8446 [place] [address]Dr. Garima Pulliam WBC 8.7 103/ul Normal 4.0-11.0 [facility] Comment on above: Performed By: #### C BC ####[facility] Evwzaqrshq9508 [place] [address]Dr. Garima Pulliam [facility]25 SARS-CoV-2 (COVID-19) RNA MARIE+probe Ql (Unsp spec) Not detected Normal NOT DETECTED [facility] Comment on above: Result Comment: When [...] for this test is supported by the [employer] of Health and Human Service's declaration that [...] Performed By: #### C VDTB ####[facility] Ckqlurmhgm1464 [place] [address]Dr. Garima Pulliam PROF 14(COMP METB)on 023 Albumin [Mass/Vol] 3.6 g/dL Normal 3.4-5.0 [facility] Comment on above: Performed By: #### C MP, BNP, HSTROPN ####[facility] Aiqjzaqyrk13[address] [place] [address]Dr. Garima Pulliam Albumin/Globulin [Mass ratio] 1.5 {ratio} Normal [facility] Comment on above: Performed By: #### C MP, BNP, HSTROPN ####[facility] Nscruximxm4800 [place] [address]Dr. Garima Pulliam ALP [Catalytic activity/Vol] 79 U/L Normal 46-116 [facility] Comment on above: Performed By: #### C MP, BNP, HSTROPN ####[facility] Bqsghwdbwt3919 [place] [address]Dr. Garima Pulliam ALT [Catalytic activity/Vol] 27 U/L Normal 16-63 [facility] Comment on above: Performed By: #### C MP, BNP, HSTROPN ####[facility] Wqytcyvxdb0452 [place] [address]Dr. Garima Pulliam Anion gap [Moles/Vol] 11.7 mmol/L Normal [facility] Comment on above: Performed By: #### C MP, BNP, HSTROPN ####[facility] Sddtgvyiqo6260 [place] [address]Dr. Garmia Pulliam AST [Catalytic activity/Vol] 21 U/L Normal 15-37 [facility] Comment on above: Performed By: #### C MP, BNP, HSTROPN ####[facility] Mmpvgplymk6041 [place] [address]Dr. Garima Pulliam Bilirubin [Mass/Vol] 0.3 mg/dL Normal 0.2-1.0 [facility] Comment on above: Performed By: #### C MP, BNP, HSTROPN ####[facility] Jnkmzdwytd54[address] [place], [place] [address]Dr. Garima Pulliam Calcium [Mass/Vol] 8.9 mg/dL Normal 8.5-10.1 [facility] Comment on above: Performed By: #### C MP, BNP, HSTROPN ####[facility] Qdtiksbkqu058[address] [place], [place] [address]Dr. Garima Pulliam Chloride [Moles/Vol] 107 mmol/L Normal 98-107 [facility] Comment on above: Performed By: #### C MP, BNP, HSTROPN ####[facility] Xwmronvgnx1970[address] [place], [place] [address]Dr. Garima Pulliam CO2 [Moles/Vol] 26.0 mmol/L Normal 21.0-32.0 The [facility] Comment on above: Performed By: #### C MP, BNP, HSTROPN ####[facility] Jfteibqpum23[address] [place], [place] [address]Dr. Garima Pulliam Creatinine [Mass/Vol] 0.65 mg/dL Critically low 0.70-1.30 [facility] Comment on above: Performed By: #### C MP, BNP, HSTROPN ####[facility] Piirjlbtmn9364 [place] [address]Dr. Garima Pulliam EGFR-AF MOZAMBICAN >60 Normal >=60 [facility] Comment on above: Performed By: #### C MP, BNP, HSTROPN ####[facility] Fnjeoirucd3736 [place] [address]Dr. Garima Pulliam EGFR-NON AF MOZAMBICAN >60 Normal >=60 [facility] Comment on above: Performed By: #### C MP, BNP, HSTROPN ####[facility] Bzejuzxgsn434[address] [place], [place] [address]Dr. Garima Pulliam Globulin (S) [Mass/Vol] 2.4 g/dL Normal [facility] Comment on above: Performed By: #### C MP, BNP, HSTROPN ####[facility] Jfdurfinhv45[address] [place], [place] [address]Dr. Garima Pulliam Glucose [Mass/Vol] 85 mg/dL Normal 74-[address] [facility] Comment on above: Performed By: #### C MP, BNP, HSTROPN ####[facility] Nncrzlqhzb96[address] [place], [place] [address]Dr. Garima Pulliam Potassium [Moles/Vol] 3.7 mmol/L Normal 3.5-5.1 [facility] Comment on above: Performed By: #### C MP, BNP, HSTROPN ####[facility] Qwdgqwldqz30[address] [place], [place] [address]Dr. Garima Pulliam Protein [Mass/Vol] 6.0 g/dL Critically low 6.4-8.2 [facility] Comment on above: Performed By: #### C MP, BNP, HSTROPN ####[facility] Mewsrjqcxz4255[address] [place], [place] [address]Dr. Garima Pulliam Sodium [Moles/Vol] 141 mmol/L Normal 136-[address] [facility] Comment on above: Performed By: #### C MP, BNP, HSTROPN ####[facility] Wofjvmbsnw249[address] [place], [place] [address]Dr. Garima Pulliam Urea nitrogen [Mass/Vol] 5.0 mg/dL Critically low 7.0-18.0 The [facility] Comment on above: Performed By: #### C MP, BNP, HSTROPN ####[facility] Bzhkovmwie1877 [place] [address]Dr. Garima Pulliam Urea nitrogen/Creatinine [Mass ratio] 7.7 mg/mg Normal [facility] Comment on above: Performed By: #### C MP, BNP, HSTROPN ####[facility] Gcuynjxmmj8[address] [place], [place] [address]Dr. Garima Pulliam PROTIMEon 01-12-2023 INR Coag (PPP) [Relative time] 1.16 {INR} Normal [facility] Comment on above: Performed By: #### P TT, PT ####[facility] [address]ms[address] [place] [address]. Garima Pulliam INR GUIDELINES SEE BELOW Normal The [facility] Comment on above: Result Comment: [place] RED INR: 2.0 - 3.0 CONDITIONS NOT LISTED BELOW 2.5 - 3.5 FOR PROSTHETIC HEART VALVE REPLACEMENT 2.5 - 3.5 RECURRENT THROMBOSIS Performed By: #### P TT, PT ####[facility] Dbvfnaefhj[address] [place], [place] [address]Dr. Garima Pulliam PT Coag (PPP) [Time] 12.2 s Critically high 9.0-11.6 [facility] Comment on above: Performed By: #### P TT, PT ####[facility] Noznnifsmg[address] [place], [place] [address]Dr. Garima Pulliam PTTon 01-12-2023 aPTT Coag (Bld) [Time] 29.1 s Normal 22.3-36.2 [facility] Comment on above: Performed By: #### P TT, PT ####[facility] Gcqjyhhxli[address] [place], [place] [address]Dr. Garima Pulliam TROPONIN, HIGH SENSITIVITYon 01-12-2023 HSTROP 10.3 pg/mL Normal 4.0-76.1 [facility] Comment on above: Result Comment: CUT- OFF POINTS HAVE BEEN ESTABLISHED BASED ON THE FOURTH UNIVERSAL DEFINITIONS OF MYOCARDIALINFARCTION. THE UPPER REFERENCE LIMIT (URL) OF TROPONIN, DEFINED THE 99TH PERCENTILE OFcTnI DISTRIBUTION IN A REFERENCE POPULATION, HAS BEEN CONFIRMED THE DECISION THRESHOLDFOR [place] DIAGNOSIS. Performed By: #### H STROPN ####[facility] Xxuzkgqtil4753 [place] [address]Dr. Garima Pulliam HSTROP 9.2 pg/mL Normal 4.0-76.1 [facility] Comment on above: Result Comment: CUT- OFF POINTS HAVE BEEN ESTABLISHED BASED ON THE FOURTH UNIVERSAL DEFINITIONS OF MYOCARDIALINFARCTION. THE UPPER REFERENCE LIMIT (URL) OF TROPONIN, DEFINED THE 99TH PERCENTILE OFcTnI DISTRIBUTION IN A REFERENCE POPULATION, HAS BEEN CONFIRMED THE DECISION THRESHOLDFOR [place] DIAGNOSIS. Performed By: #### C MP, BNP, HSTROPN ####[facility] Nmphlzyvrj0752 [place] [address]Dr. Garima Pulliam XR CHEST 1 Von 01-12-2023 XR CHEST 1 V Normal [facility] XR CHEST 1 Von 01-01-2023 XR CHEST 1 V Normal [facility] CARDIAC NASH 3-6on 3 CK [Catalytic activity/Vol] 196 U/L Normal 39-308 [facility] Comment on above: Performed By: #### C MREP ####[facility] [address]ogiewkrgd2[address] [place] [address]Dr. Garima Pulliam CK.MB [Mass/Vol] 7.41 ng/mL Critically high <=3.60 [facility] Comment on above: Performed By: #### C MREP ####[facility] Ypqszpdlsn8979 [place] [address]Dr. Garima Pulliam HSTROP 10.3 pg/mL Normal 4.0-76.1 [facility] Comment on above: Result Comment: CUT- OFF POINTS HAVE BEEN ESTABLISHED BASED ON THE FOURTH UNIVERSAL DEFINITIONS OF MYOCARDIALINFARCTION. THE UPPER REFERENCE LIMIT (URL) OF TROPONIN, DEFINED THE 99TH PERCENTILE OFcTnI DISTRIBUTION IN A REFERENCE POPULATION, HAS BEEN CONFIRMED THE DECISION THRESHOLDFOR [place] DIAGNOSIS. Performed By: #### C MREP ####[facility] Ckaxalaydy1862 [place] [address]Dr. Garima Pulliam XR CHEST 1 Von 12-26-2022 XR CHEST 1 V Normal [facility] BNPon 12-25-2022 Natriuretic peptide B (Bld) [Mass/Vol] 98.0 pg/mL Normal <=900.0 [facility] Comment on above: Performed By: #### B ALUM OPERATOR, BMP, CMADM ####[facility] Woackmwadn37[address] [place] [id number]. Garima Pulliam CARDIAC NASH ADMITon 023 CK [Catalytic activity/Vol] 208 U/L Normal 39-308 [facility] Comment on above: Performed By: #### B ALUM OPERATOR, BMP, CMADM ####[facility] Vxsihwdpdf2757 [place] [address]Dr. Garima Pulliam CK.MB [Mass/Vol] 7.63 ng/mL Critically high <=3.60 [facility] Comment on above: Performed By: #### B ALUM OPERATOR, BMP, CMADM ####[facility] Avsvudpwlt1640 [place] [address]Dr. Garima Pulliam HSTROP 8.8 pg/mL Normal 4.0-76.1 [facility] Comment on above: Result Comment: CUT- OFF POINTS HAVE BEEN ESTABLISHED BASED ON THE FOURTH UNIVERSAL DEFINITIONS OF MYOCARDIALINFARCTION. THE UPPER REFERENCE LIMIT (URL) OF TROPONIN, DEFINED THE 99TH PERCENTILE OFcTnI DISTRIBUTION IN A REFERENCE POPULATION, HAS BEEN CONFIRMED THE DECISION THRESHOLDFOR [place] DIAGNOSIS. Performed By: #### B ALUM OPERATOR, BMP, CMADM ####[facility] Fnlruqnogu9354 [place] [address]Dr. Garima Pulliam DORIS 83 ng/mL Normal 16-96 [facility] Comment on above: Performed By: #### B ALUM OPERATOR, BMP, CMADM ####[facility] Zfersrzufy15[address] [place] [id number]. Garima Pulliam CBC AUTO DIFFon 12-25-2022 BASO # 0.0 103/ul Normal 0.0-0.1 [facility] Comment on above: Performed By: #### C BC ####[facility] Rkkmqpfyna8566 [place] [address]Dr. Garima Pulliam Basophils/100 WBC (Bld) 0.0 % Critically low 0.2-2.0 [facility] Comment on above: Performed By: #### C BC ####[facility] Obiabxiijt[address] [place], [place] [address]Dr. Garima Pulliam EO # 0.0 103/ul Normal 0.0-0.7 [facility] Comment on above: Performed By: #### C BC ####[facility] Muaqacrvks[address] [place], [place] [address]Dr. Garima Pulliam Eosinophils/100 WBC (Bld) 0.7 % Critically low 0.9-7.0 [facility] Comment on above: Performed By: #### C BC ####[facility] Xoelhyicnl[address] [place], [place] [address]Dr. Garima Pulliam Erythrocyte distribution width (RBC) [Ratio] 13.4 % Normal 11.0-15.0 [facility] Comment on above: Performed By: #### C BC ####[facility] Mbinegdfks[address] [place], [place] [address]Dr. Garima Pulliam Hematocrit (Bld) [Volume fraction] 42.9 % Normal 42.0-54.0 [facility] Comment on above: Performed By: #### C BC ####[facility] Zquguioner62[address] [place], [place] [address]Dr. Chapisrenu Pulliam Hemoglobin (Bld) [Mass/Vol] 14.4 g/dL Normal 14.0-18.0 [facility] Comment on above: Performed By: #### C BC ####[facility] Ouiulafgtz35[address] [place], [place] [address]Dr. Garima Pulliam IG # 0.00 10e3/ul Normal 0.00-0.03 [facility] Comment on above: Performed By: #### C BC ####[facility] Mhsrsaleox9934[address] [place], [place] [address]Dr. Garima Pulliam IG % 0.0 % Normal 0.0-0.5 [facility] Comment on above: Performed By: #### C BC ####[facility] Rshmalpoas[address] [place], [place] [address]Dr. Garima Pulliam LYMPH # 2.4 103/ul Normal 1.2-3.8 [facility] Comment on above: Performed By: #### C BC ####[facility] Olrvyyyaug6057 [place] [address]Dr. Garima Pulliam Lymphocytes/100 WBC (Bld) 29.2 % Normal 20.5-60.0 [facility] Comment on above: Performed By: #### C BC ####[facility] Hotqavicsi5153 [place] [address]DrAdalberto Pulliam MANUAL DIFF REQ NO Normal [facility] Comment on above: Performed By: #### C BC ####[facility] Tbntwimrhy2955 [place] [address]Dr. Gariam Pulliam MCH (RBC) [Entitic mass] 30.7 pg Normal 25.9-34.0 [facility] Comment on above: Performed By: #### C BC ####[facility] Oekyhmkcsj[address] [place], [place] [address]Dr. Garima Pulliam MCHC (RBC) [Mass/Vol] 33.6 g/dL Normal 29.9-35.2 [facility] Comment on above: Performed By: #### C BC ####[facility] Dawhkddtvh[address] [place], [place] [address]DrAdalberto Pulliam MCV (RBC) [Entitic vol] 91.5 fL Normal 80.0-94.0 [facility] Comment on above: Performed By: #### C BC ####[facility] Mmybmxhxeu4183 [place] [address]Dr. Garima Pulliam MONO # 0.0 103/ul Critically low 0.3-0.8 [facility] Comment on above: Performed By: #### C BC ####[facility] Ymkhidxgzi[address] [place], [place] [address]DrAdalberto Pulliam Monocytes/100 WBC (Bld) 8.0 % Normal 1.7-12.0 [facility] Comment on above: Performed By: #### C BC ####[facility] Snyqkfokdj[address] [place], [place] [address]DrAdalberto Pulliam NEUT # 5.1 103/ul Normal 1.4-6.5 [facility] Comment on above: Performed By: #### C BC ####[facility] Lbcwexydih9039 [place] [id number]. Garima Pulliam Neutrophils/100 WBC (Bld) 62.8 % Normal 43.0-75.0 [facility] Comment on above: Performed By: #### C BC ####[facility] Hoievmewyo1430 [place] [address]Dr. Garima Pulliam Platelet mean volume (Bld) [Entitic vol] 8.6 fL Critically low 9.5-13.5 [facility] Comment on above: Performed By: #### C BC ####[facility] Tbjzzdvnhg1148 [place] [address]Dr. Garima Pulliam PLT 200 103/ul Normal 150-450 [facility] Comment on above: Performed By: #### C BC ####[facility] Salafgzopr1415 [place] [address]Dr. Garima Pulliam RBC 4.69 106/ul Critically low 4.70-6.10 The [place] Comment on above: Performed By: #### C BC ####[facility] Onbfzskgiu0612 [place] [address]Dr. Garima Pulliam WBC 8.2 103/ul Normal 4.0-11.0 [facility] Comment on above: Performed By: #### C BC ####[facility] Uiwlqiewal76[address] [place] [id number]. Garima Pulliam [facility]on SARS-CoV-2 (COVID-19) RNA MARIE+probe Ql (Unsp spec) Not detected Normal NOT DETECTED [facility] Comment on above: Result Comment: When [...] for this test is supported by the [place] of Health and Human Service's declaration that [...] Performed By: #### C VDTBH ####[facility] [address]wfk[address] [place], [place] [address]Dr. Garima Pulliam INFLUENZA A AND B AGon 12-25 INFLUANE SEE BELOW Normal [facility] Comment on above: Result Comment: Nega tive for Flu A protein angiten. Infection due to Flu A cannot be ruled out. Flu A angiten in the sample may be below the detection limit of the test. Performed By: #### I NFLUAB ####[facility] [address] [place] [address]. Garima Pulliam INFLUBNEGH SEE BELOW Normal [facility] Comment on above: Result Comment: Nega tive for Flu B protein antigen. Infection due to Flu B cannot be ruled out. Flu B antigen in the sample may be below the detection limit of the test. Performed By: #### I NFLUAB ####[facility] [address] [place], [place] [address]Dr. renu Pulliam INFLUENZA A AG Negative Normal NEGATIVE SEE COMMENT [facility] Comment on above: Performed By: #### I NFLUAB ####[facility] [address]blunw[address] [place], [place] [address]Dr. Garima Pulliam INFLUENZA B AG Negative Normal NEGATIVE SEE COMMENT [facility] Comment on above: Performed By: #### I NFLUAB ####[facility] [address] [place] [address]. Garima Pulliam PROF CHEM 8 (BAS METB)on Anion gap [Moles/Vol] 11.1 mmol/L Normal [facility] Comment on above: Performed By: #### B ALUM OPERATOR, BMP, CMADM ####[facility] Jijkmdlxyb40[address] [place] [id number]. Garima Pulliam Calcium [Mass/Vol] 8.5 mg/dL Normal 8.5-10.1 [facility] Comment on above: Performed By: #### B ALUM OPERATOR, BMP, CMADM ####[facility] Zyguiempsn[address] [place] [id number]. Garima Pulliam Chloride [Moles/Vol] 106 mmol/L Normal 98-107 [facility] Comment on above: Performed By: #### B ALUM OPERATOR, BMP, CMADM ####[facility] [address]aw[address] [place] [address]Dr. Garima Pulliam CO2 [Moles/Vol] 27.4 mmol/L Normal 21.0-32.0 [facility] Comment on above: Performed By: #### B ALUM OPERATOR, BMP, CMADM ####[facility] Gkpmkpiynm59[address] [place] [address]Dr. Garima Pulliam Creatinine [Mass/Vol] 0.65 mg/dL Critically low 0.70-1.30 [facility] Comment on above: Performed By: #### B ALUM OPERATOR, BMP, CMADM ####[facility] Ujvniampyr[address] [place] [address]Dr. Garima Pulliam EGFR-AF MOZAMBICAN >60 Normal >=60 [facility] Comment on above: Performed By: #### B ALUM OPERATOR, BMP, CMADM ####[facility] Uggoreygfr[address]74 [place] [address]Dr. Garima Pulliam EGFR-NON AF MOZAMBICAN >60 Normal >=60 [facility] Comment on above: Performed By: #### B ALUM OPERATOR, BMP, CMADM ####[facility] Emmqwrfulq[address]126 [place] [address]Dr. Garima Pulliam Glucose [Mass/Vol] 140 mg/dL Critically high 74-106 [facility] Comment on above: Performed By: #### B ALUM OPERATOR, BMP, CMADM ####[facility] Towxitrbah[address]2 [place] [address]Dr. Garima Pulliam Potassium [Moles/Vol] 3.5 mmol/L Normal 3.5-5.1 [facility] Comment on above: Performed By: #### B ALUM OPERATORMARVIN, NANCY ####[facility] Lhvkbgfdvn87[address] [place] [address]Dr. Chapisrenu Pulliam Sodium [Moles/Vol] 141 mmol/L Normal 136-[address] [facility] Comment on above: Performed By: #### B ALUM OPERATORMARVIN, CMAANA ROSA ####[facility] Pjflbwltaw4814 [place] [address]Dr. Garima Pulliam Urea nitrogen [Mass/Vol] 8.0 mg/dL Normal 7.0-18.0 [facility] Comment on above: Performed By: #### B MARVIN FRENCH CMADM ####[facility] Eblpszepzu5[address] [place] [address]Dr. Garima Pulliam Urea nitrogen/Creatinine [Mass ratio] 12.3 mg/mg Normal [facility] Comment on above: Performed By: #### B MARVIN FRENCH CMAANA ROSA ####[facility] Ckfzymqlbd6713 [place] [address]Dr. Garima Heraclio CARDIAC NASH ADMITon 023 CK [Catalytic activity/Vol] 165 U/L Normal 39-308 [facility] Comment on above: Performed By: #### B NANCY HERNANDEZ ####[facility] Kitekwpwuq[address] [place], [place] [address]Dr. Garima Pulliam CK.MB [Mass/Vol] 6.48 ng/mL Critically high <=3.60 [facility] Comment on above: Performed By: #### B MP, CMADM ####[facility] Xgqtqshewq[address] [place], [place] [address]Dr. Garima Heraclio HSTROP 11.7 pg/mL Normal 4.0-76.1 [facility] Comment on above: Result Comment: CUT- OFF POINTS HAVE BEEN ESTABLISHED BASED ON THE FOURTH UNIVERSAL DEFINITIONS OF MYOCARDIALINFARCTION. THE UPPER REFERENCE LIMIT (URL) OF TROPONIN, DEFINED THE 99TH PERCENTILE OFcTnI DISTRIBUTION IN A REFERENCE POPULATION, HAS BEEN CONFIRMED THE DECISION THRESHOLDFOR [place] DIAGNOSIS. Performed By: #### B DAVID, CMADM ####[facility] Iqhcrqefws1861 [place] [id number]. Garima Pulliam DORIS 83 ng/mL Normal 16-96 [facility] Comment on above: Performed By: #### B MP, CMADM ####[facility] Ohjznnjccs3715 [place] [address]Dr. Garima Pulliam CBC AUTO DIFFon 12-10-2022 BASO # 0.0 103/ul Normal 0.0-0.1 [facility] Comment on above: Performed By: #### C BC ####[facility] Woiirltopo0288 [place] [address]Dr. Garima Pulliam Basophils/100 WBC (Bld) 0.3 % Normal 0.2-2.0 [facility] Comment on above: Performed By: #### C BC ####[facility] Hxaerwsjzg5782 [place] [address]Dr. Garima Pulliam EO # 0.1 103/ul Normal 0.0-0.7 [facility] Comment on above: Performed By: #### C BC ####[facility] Sfdfdsxvvd3078 [place] [address]Dr. Garima Pulliam Eosinophils/100 WBC (Bld) 0.4 % Critically low 0.9-7.0 [facility] Comment on above: Performed By: #### C BC ####[facility] Kbwaghmiym4976 [place] [address]Dr. Garima Pulliam Erythrocyte distribution width (RBC) [Ratio] 13.2 % Normal 11.0-15.0 [facility] Comment on above: Performed By: #### C BC ####[facility] Edfkut[address] [place], [place] [address]Dr. Garima Pulliam Hematocrit (Bld) [Volume fraction] 42.4 % Normal 42.0-54.0 [facility] Comment on above: Performed By: #### C BC ####[facility] Iug[address]zdjp[address] [place], [place] [address]Dr. Garima Pulliam Hemoglobin (Bld) [Mass/Vol] 14.4 g/dL Normal 14.0-18.0 [facility] Comment on above: Performed By: #### C BC ####[facility] Aifwzvcpxy4106 [place] [address]Dr. Garima Pulliam IG # 0.05 10e3/ul Critically high 0.00-0.03 [facility] Comment on above: Performed By: #### C BC ####[facility] Fgfmlunhis9423 [place] [address]Dr. Garima Pulliam IG % 0.4 % Normal 0.0-0.5 [facility] Comment on above: Performed By: #### C BC ####[facility] Hkhpiprzdi4511 [place] [address]Dr. Garima Pulliam LYMPH # 0.8 103/ul Critically low 1.2-3.8 [facility] Comment on above: Performed By: #### C BC ####[facility] Pkrmccraei1619 [place] [address]Dr. Garima Pulliam Lymphocytes/100 WBC (Bld) 6.5 % Critically low 20.5-60.0 [facility] Comment on above: Performed By: #### C BC ####[facility] Wjkjpbjkkw0346 [place] [address]Dr. Garima Pulliam MANUAL DIFF REQ NO Normal [facility] Comment on above: Performed By: #### C BC ####[facility] Vkilujsbed6446 [place] [address]Dr. Garima Pulliam MCH (RBC) [Entitic mass] 30.5 pg Normal 25.9-34.0 [facility] Comment on above: Performed By: #### C BC ####[facility] Jzrjn[address]rpa[address] [place], [place] [address]Dr. Garima Pulliam MCHC (RBC) [Mass/Vol] 34.0 g/dL Normal 29.9-35.2 [facility] Comment on above: Performed By: #### C BC ####[facility] Wwghqjjqjt[address] [place], [place] [address]Dr. Garima Pulliam MCV (RBC) [Entitic vol] 89.8 fL Normal 80.0-94.0 [facility] Comment on above: Performed By: #### C BC ####[facility] Wxvgkbxwrq3848 [place] [id number]. Garima Pulliam MONO # 0.2 103/ul Critically low 0.3-0.8 [facility] Comment on above: Performed By: #### C BC ####[facility] Ohxevajdnt1660 [place] [address]Dr. Garima Pulliam Monocytes/100 WBC (Bld) 2.0 % Normal 1.7-12.0 [facility] Comment on above: Performed By: #### C BC ####[facility] Zypiotzrhg3235 [place] [address]Dr. Garima Pulliam NEUT # 10.5 103/ul Critically high 1.4-6.5 [facility] Comment on above: Performed By: #### C BC ####[facility] Jrpgdqyabx7521 [place] [address]Dr. Garima Pulliam Neutrophils/100 WBC (Bld) 90.4 % Critically high 43.0-75.0 [facility] Comment on above: Performed By: #### C BC ####[facility] Ipdpmtecqt2958 [place] [address]Dr. Garima Pulliam Platelet mean volume (Bld) [Entitic vol] 9.4 fL Critically low 9.5-13.5 [facility] Comment on above: Performed By: #### C BC ####[facility] Hobhsbfruc6432 [place] [address]Dr. Garima Pulliam PLT 198 103/ul Normal 150-450 [facility] Comment on above: Performed By: #### C BC ####[facility] Bimkkcxpcq1902 [place] [address]Dr. Garima Pulliam RBC 4.72 106/ul Normal 4.70-6.10 [facility] Comment on above: Performed By: #### C BC ####[facility] Lsfufhvvie7964 [place] [address]Dr. Garima Pluliam WBC 11.6 103/ul Critically high 4.0-11.0 [facility] Comment on above: Performed By: #### C BC ####[facility] Nidlvuifto4502 [place] [address]Dr. Garima Pulliam PROF CHEM 8 (BAS METB)on Anion gap [Moles/Vol] 11.3 mmol/L Normal [facility] Comment on above: Performed By: #### B DAVID, CMADM ####[facility] Uapatsvvbv8894 [place] [address]Dr. Garima Pulliam Calcium [Mass/Vol] 8.9 mg/dL Normal 8.5-10.1 [facility] Comment on above: Performed By: #### B DAVID, NANCY ####[facility] Ewzzbsrtoj7570 [place] [address]Dr. Garima Pulliam Chloride [Moles/Vol] 103 mmol/L Normal 98-107 [facility] Comment on above: Performed By: #### B DAVID, CMADM ####[facility] Ocs[address]za[address] [place], [place] [address]Dr. Garima Pulliam CO2 [Moles/Vol] 28.2 mmol/L Normal 21.0-32.0 [facility] Comment on above: Performed By: #### Trae HERNANDEZ, NANCY ####[facility] Facmlknovj7448 [place] [address]Dr. Garima Pulliam Creatinine [Mass/Vol] 0.60 mg/dL Critically low 0.70-1.30 [facility] Comment on above: Performed By: #### Trae HERNANDEZ, CMAANA ROSA ####[facility] Aofsuxiskg1238 [place] [address]Dr. Garima Pulliam EGFR-AF MOZAMBICAN >60 Normal >=60 [facility] Comment on above: Performed By: #### B DAVID, CMAANA ROSA ####[facility] Dqsjmeqphj6578 [place] [address]Dr. Garima Pulliam EGFR-NON AF MOZAMBICAN >60 Normal >=60 [facility] Comment on above: Performed By: #### B DAVID, CMADM ####[facility] Iomerueawa3690 [place] [address]Dr. Garima Pulliam Glucose [Mass/Vol] 166 mg/dL Critically high 74-106 [facility] Comment on above: Performed By: #### B DAVID, CMADM ####[facility] Zqqknapgrt1163 [place] [address]Dr. Garima Pulliam Potassium [Moles/Vol] 3.5 mmol/L Normal 3.5-5.1 [facility] Comment on above: Performed By: #### B DAVID, CMADM ####[facility] Rimonttupt[address] [place], [place] [address]Dr. Garima Pulliam Sodium [Moles/Vol] 139 mmol/L Normal 136-145 [facility] Comment on above: Performed By: #### B DAVID, CMADM ####[facility] Vftjwugxgb[address] [place], [place] [address]Dr. Chapisrenu Heraclio Urea nitrogen [Mass/Vol] 9.0 mg/dL Normal 7.0-18.0 [facility] Comment on above: Performed By: #### B DAVID, CMAANA ROSA ####[facility] Fedqshxkjl[address] [place], [place] [address]Dr. Garima Pulliam Urea nitrogen/Creatinine [Mass ratio] 15.0 mg/mg Normal [facility] Comment on above: Performed By: #### B DAVID, CMAANA ROSA ####[facility] Vcclkecgtp[address] [place], [place] [address]Dr. Garima Heraclio XR CHEST 1 Von 12-10-2022 XR CHEST 1 V Normal [facility] BNPon 11-27-2022 Natriuretic peptide B (Bld) [Mass/Vol] 95.0 pg/mL Normal <=900.0 [facility] Comment on above: Performed By: #### C MP, HSTROPN, BNP ####[facility] Trlrhgvxws[address] [place], [place] [address]Dr. Garima Pulliam CBC AUTO DIFFon 11-27-2022 BASO # 0.0 103/ul Normal 0.0-0.1 [facility] Comment on above: Performed By: #### C BC ####[facility] Yrnkodusyb[address] [place], [place] [address]Dr. Garima Pulliam Basophils/100 WBC (Bld) 0.2 % Normal 0.2-2.0 [facility] Comment on above: Performed By: #### C BC ####[facility] Fjbqwspkzk6725 [place] [address]Dr. Garima Pulliam EO # 0.2 103/ul Normal 0.0-0.7 [facility] Comment on above: Performed By: #### C BC ####[facility] Kzgjzxjqoe4099 [place] [address]Dr. Garima Pulliam Eosinophils/100 WBC (Bld) 2.0 % Normal 0.9-7.0 [facility] Comment on above: Performed By: #### C BC ####[facility] Kslxuzgayp[address] [place], [place] [address]Dr. Garima Pulliam Erythrocyte distribution width (RBC) [Ratio] 13.2 % Normal 11.0-15.0 [facility] Comment on above: Performed By: #### C BC ####[facility] Gwabkirwey[address] [place], [place] [address]Dr. Garima Pulliam Hematocrit (Bld) [Volume fraction] 42.4 % Normal 42.0-54.0 [facility] Comment on above: Performed By: #### C BC ####[facility] Goksqububi[address] [place], [place] [address]Dr. Garima Pulliam Hemoglobin (Bld) [Mass/Vol] 14.4 g/dL Normal 14.0-18.0 [facility] Comment on above: Performed By: #### C BC ####[facility] Tbxrhizoar[address] [place], [place] [address]Dr. Garima Pulliam IG # 0.04 10e3/ul Critically high 0.00-0.03 [facility] Comment on above: Performed By: #### C BC ####[facility] Rmzntfymme[address] [place], [place] [address]Dr. Garima Pulliam IG % 0.4 % Normal 0.0-0.5 [facility] Comment on above: Performed By: #### C BC ####[facility] T[address]fzmthi[address] [place], [place] [address]Dr. Garima Pulliam LYMPH # 2.2 103/ul Normal 1.2-3.8 [facility] Comment on above: Performed By: #### C BC ####[facility] Lrqhdpxbgu3347 [place] [address]Dr. Chapisrenu Pulliam Lymphocytes/100 WBC (Bld) 21.5 % Normal 20.5-60.0 [facility] Comment on above: Performed By: #### C BC ####[facility] Kmulubotpe2254 [place] [address]Dr. Garima Pulliam MANUAL DIFF REQ NO Normal [facility] [place] Comment on above: Performed By: #### C BC ####[facility] Mhxkrwpwey4017 [place] [address]Dr. Garima Pulliam MCH (RBC) [Entitic mass] 30.4 pg Normal 25.9-34.0 [facility] Comment on above: Performed By: #### C BC ####[facility] Pilruuqgqs6100 [place] [address]Dr. Garima Pulliam MCHC (RBC) [Mass/Vol] 34.0 g/dL Normal 29.9-35.2 [facility] Comment on above: Performed By: #### C BC ####[facility] Vrfgojcyko8697 [place] [address]Dr. Garima Pulliam MCV (RBC) [Entitic vol] 89.6 fL Normal 80.0-94.0 [facility] Comment on above: Performed By: #### C BC ####[facility] Grsqvjljmn3264 [place] [address]Dr. Garima Pulliam MONO # 0.8 103/ul Normal 0.3-0.8 [facility] Comment on above: Performed By: #### C BC ####[facility] Ztsffxdaey5559 [place] [address]Dr. Garima Pulliam Monocytes/100 WBC (Bld) 7.7 % Normal 1.7-12.0 [facility] Comment on above: Performed By: #### C BC ####[facility] Cdfsvmplqz8205 [place] [address]Dr. Garima Pulliam NEUT # 7.0 103/ul Critically high 1.4-6.5 [facility] [place] Comment on above: Performed By: #### C BC ####[facility] Izrxxzthwt8511 [place] [address]Dr. Garima Pulliam Neutrophils/100 WBC (Bld) 68.2 % Normal 43.0-75.0 [facility] Comment on above: Performed By: #### C BC ####[facility] Fvkptvwfki8221 [place] [id number]. Garima Pulliam Platelet mean volume (Bld) [Entitic vol] 8.9 fL Critically low 9.5-13.5 [facility] Comment on above: Performed By: #### C BC ####[facility] Petqnnkqvs0683 [place] [address]Dr. Garima Pulliam PLT 222 103/ul Normal 150-450 [facility] Comment on above: Performed By: #### C BC ####[facility] Ateiftjdeh0460 [place] [address]Dr. Garima Pulliam RBC 4.73 106/ul Normal 4.70-6.10 [facility] Comment on above: Performed By: #### C BC ####[facility] Jnjc[address]lkws[address] [place], [place] [address]Dr. Garima Pulliam WBC 10.3 103/ul Normal 4.0-11.0 [facility] Comment on above: Performed By: #### C BC ####[facility] Zmkhzeshsx5791 [place] [address]DrAdalberto Pulliam PROF 14(COMP METB)on 023 Albumin [Mass/Vol] 3.7 g/dL Normal 3.4-5.0 [facility] Comment on above: Performed By: #### C MP, HSTROPN, BNP ####[facility] Bdbjfljdcw3083 [place] [address]Dr. Garima Pulliam Albumin/Globulin [Mass ratio] 1.5 {ratio} Normal [facility] Comment on above: Performed By: #### C MP, HSTROPN, BNP ####[facility] Epnyfgljpg3773 [place] [id number] Pulliam ALP [Catalytic activity/Vol] 79 U/L Normal 46-116 [facility] Comment on above: Performed By: #### C DAVID HSTROPN, BNP ####[facility] Qytrvofzwh0095 [place] [address]Dr. Garima Pulliam ALT [Catalytic activity/Vol] 32 U/L Normal 16-63 [facility] Comment on above: Performed By: #### C DAVID, HSTROPN, BNP ####[facility] Gwuihyywvx9789 [place] [address]Dr. Garima Pulliam Anion gap [Moles/Vol] 9.5 mmol/L Normal [facility] Comment on above: Performed By: #### C DAVID HSTROPN, BNP ####[facility] Sfczaqvszl[address] [place], [place] [address]Dr. Garima Pulliam AST [Catalytic activity/Vol] 25 U/L Normal 15-37 [facility] Comment on above: Performed By: #### C DAVID, HSTROPN, BNP ####[facility] U[address]fkp[address] [place], [place] [address]Dr. Garima Pulliam Bilirubin [Mass/Vol] 0.4 mg/dL Normal 0.2-1.0 [facility] Comment on above: Performed By: #### C DAVID HSTROPN, BNP ####[facility] [address]yg[address]fefwem[address] [place], [place] [address]Dr. Garima Pulliam Calcium [Mass/Vol] 8.9 mg/dL Normal 8.5-10.1 [facility] Comment on above: Performed By: #### C DAVID, HSTROPN, BNP ####[facility] Nwycbdhwcb3659 [place] [address]Dr. Garima Pulliam Chloride [Moles/Vol] 103 mmol/L Normal 98-107 [facility] Comment on above: Performed By: #### C DAVID, HSTROPN, BNP ####[facility] Ikllswggla6744 [place] [address]Dr. Garima Pulliam CO2 [Moles/Vol] 28.6 mmol/L Normal 21.0-32.0 [facility] Comment on above: Performed By: #### C MP, HSTROPN, BNP ####[facility] Lwslvlfngk3882 [place] [address]Dr. Garima Pulliam Creatinine [Mass/Vol] 0.72 mg/dL Normal 0.70-1.30 [facility] Comment on above: Performed By: #### C MP, HSTROPN, BNP ####[facility] Thcngtnmwg2528 [place] [address]Dr. Garima Pulliam EGFR-AF MOZAMBICAN >60 Normal >=60 [facility] Comment on above: Performed By: #### C MP, HSTROPN, BNP ####[facility] Slmzqorora[address] [place], [place] [address]Dr. Garima Pulliam EGFR-NON AF MOZAMBICAN >60 Normal >=60 [facility] Comment on above: Performed By: #### C MP, HSTROPN, BNP ####[facility] Zpsh[address]wkto[address] [place], [place] [address]Dr. Garima Pulliam Globulin (S) [Mass/Vol] 2.5 g/dL Normal [facility] Comment on above: Performed By: #### C MP, HSTROPN, BNP ####[facility] Nxicdnexlk[address] [place], [place] [address]Dr. Garima Pulliam Glucose [Mass/Vol] 114 mg/dL Critically high 74-106 [facility] Comment on above: Performed By: #### C MP, HSTROPN, BNP ####[facility] Ndvypmgfyw[address] [place], [place] [address]Dr. Garima Pulliam Potassium [Moles/Vol] 4.1 mmol/L Normal 3.5-5.1 [facility] Comment on above: Performed By: #### C MP, HSTROPN, BNP ####[facility] Opawsulmpy[address] [place], [place] [address]Dr. Garima Pulliam Protein [Mass/Vol] 6.2 g/dL Critically low 6.4-8.2 [facility] Comment on above: Performed By: #### C MP, HSTROPN, BNP ####[facility] Pzaguyextz6899 [place] [address]Dr. Garima Pulliam Sodium [Moles/Vol] 137 mmol/L Normal 136-[address] [facility] Comment on above: Performed By: #### C MP, HSTROPN, BNP ####[facility] Tkbftqeqir2158 [place] [address]Dr. Garima Pulliam Urea nitrogen [Mass/Vol] 13.0 mg/dL Normal 7.0-18.0 [facility] Comment on above: Performed By: #### C MP, HSTROPN, BNP ####[facility] Wmdqwtaisd7165 [place] [address]Dr. Chapisrenu Pulliam Urea nitrogen/Creatinine [Mass ratio] 18.1 mg/mg Normal [facility] Comment on above: Performed By: #### C MP, HSTROPN, BNP ####[facility] [address]om[address] [place], [place] [address]Dr. Garima Pulliam TROPONIN, HIGH SENSITIVITYon 11-27-2022 HSTROP 11.8 pg/mL Normal 4.0-76.1 [facility] Comment on above: Result Comment: CUT- OFF POINTS HAVE BEEN ESTABLISHED BASED ON THE FOURTH UNIVERSAL DEFINITIONS OF MYOCARDIALINFARCTION. THE UPPER REFERENCE LIMIT (URL) OF TROPONIN, DEFINED THE 99TH PERCENTILE OFcTnI DISTRIBUTION IN A REFERENCE POPULATION, HAS BEEN CONFIRMED THE DECISION THRESHOLDFOR [place] DIAGNOSIS. Performed By: #### C MP, HSTROPN, BNP ####[facility] Tybiisinoy5821 [place] [address]Dr. Garima Pulliam XR CHEST 1 Von 11-27-2022 XR CHEST 1 V Normal [facility] BNPon 11-20-2022 Natriuretic peptide B (Bld) [Mass/Vol] 73.0 pg/mL Normal <=900.0 [facility] Comment on above: Performed By: #### B MP, HSTROPN, BNP ####[facility] [address]oxotusshv[address] [place], [place] [address]Dr. Chapisrenu Pulliam CBC AUTO DIFFon 11-20-2022 BASO # 0.0 103/ul Normal 0.0-0.1 [facility] Comment on above: Performed By: #### C BC ####[facility] Tukcqxpjej1492 [place] [id number]. Garima Pulliam Basophils/100 WBC (Bld) 0.3 % Normal 0.2-2.0 [facility] Comment on above: Performed By: #### C BC ####[facility] [address] [place], [place] [id number]. Garima Pulliam EO # 0.2 103/ul Normal 0.0-0.7 [facility] Comment on above: Performed By: #### C BC ####[facility] [address]fvslxozzm[address] [place], [place] [address]Dr. Garima Pulliam Eosinophils/100 WBC (Bld) 2.1 % Normal 0.9-7.0 [facility] Comment on above: Performed By: #### C BC ####[facility] [address]sr[address]jf[address] [place], [place] [address]Dr. Garima Pulliam Erythrocyte distribution width (RBC) [Ratio] 13.2 % Normal 11.0-15.0 [facility] Comment on above: Performed By: #### C BC ####[facility] Asikgzwebo[address] [place], [place] [id number]. Garima Pulliam Hematocrit (Bld) [Volume fraction] 43.4 % Normal 42.0-54.0 [facility] Comment on above: Performed By: #### C BC ####[facility] Ymnijylqic[address] [place], [place] [id number]. Garima Pulliam Hemoglobin (Bld) [Mass/Vol] 14.6 g/dL Normal 14.0-18.0 [facility] Comment on above: Performed By: #### C BC ####[facility] [address] [place], [place] [address]Dr. Garima Pulliam IG # 0.02 10e3/ul Normal 0.00-0.03 [facility] Comment on above: Performed By: #### C BC ####[facility] C[address]sfq[address] [place], [place] [address]Dr. Garima Pulliam IG % 0.2 % Normal 0.0-0.5 [facility] Comment on above: Performed By: #### C BC ####[facility] [address]uuv[address] [place] [id number]. Chapisrenu Heraclio LYMPH # 2.1 103/ul Normal 1.2-3.8 [facility] Comment on above: Performed By: #### C BC ####[facility] Xhgsjbddln6223 [place] [id number]. Garima Pulliam Lymphocytes/100 WBC (Bld) 19.2 % Critically low 20.5-60.0 [facility] Comment on above: Performed By: #### C BC ####[facility] Jbjaxxetva7[address] [place] [id number]. Garima Pulliam MANUAL DIFF REQ NO Normal [facility] Comment on above: Performed By: #### C BC ####[facility] Zywplenqqo8744 [place] [address]Dr. Garima Pulliam MCH (RBC) [Entitic mass] 30.4 pg Normal 25.9-34.0 [facility] Comment on above: Performed By: #### C BC ####[facility] Hvypgshdau55[address] [place] [id number]. Garima Pulliam MCHC (RBC) [Mass/Vol] 33.6 g/dL Normal 29.9-35.2 [facility] Comment on above: Performed By: #### C BC ####[facility] Hnzljbwjmp07[address] [place] [address]Dr. Garima Pulliam MCV (RBC) [Entitic vol] 90.4 fL Normal 80.0-94.0 [facility] Comment on above: Performed By: #### C BC ####[facility] Lpnxnqpnuj4[address] [place] [address]Dr. Garima Pulliam MONO # 0.6 103/ul Normal 0.3-0.8 [facility] Comment on above: Performed By: #### C BC ####[facility] Dswlarvsui70[address] [place] [address]Dr. Garima Pulliam Monocytes/100 WBC (Bld) 5.8 % Normal 1.7-12.0 [facility] Comment on above: Performed By: #### C BC ####[facility] Diskbtyitw4496 [place] [address]Dr. Garima Pulliam NEUT # 7.8 103/ul Critically high 1.4-6.5 [facility] [place] Comment on above: Performed By: #### C BC ####[facility] Pmghtmzfbl5901 [place] [address]Dr. Garima Pulliam Neutrophils/100 WBC (Bld) 72.4 % Normal 43.0-75.0 [facility] Comment on above: Performed By: #### C BC ####[facility] Ydlobjtymm0793 [place] [id number]. Garima Pulliam Platelet mean volume (Bld) [Entitic vol] 8.7 fL Critically low 9.5-13.5 [facility] Comment on above: Performed By: #### C BC ####[facility] Rurxjeqmmg[address] [place] [address]Dr. Garima Pulliam PLT 184 103/ul Normal 150-450 [facility] Comment on above: Performed By: #### C BC ####[facility] Dwogrsgchm1835 [place] [id number]. Garima Pulliam RBC 4.80 106/ul Normal 4.70-6.10 [facility] Comment on above: Performed By: #### C BC ####[facility] Toqcgofqgz9[address] [place] [id number]. Garima Pulliam WBC 10.8 103/ul Normal 4.0-11.0 [facility] Comment on above: Performed By: #### C BC ####[facility] Uasymbjyba[address] [place], [place] [id number]. Garima Pulliam Covid-19 PCR (CVDTB)on 10-24 SARS-CoV-2 (COVID-19) RNA MARIE+probe Ql (Unsp spec) Not detected Normal NOT DETECTED [facility] Comment on above: Result Comment: When [...] for this test is supported by the [place] of Health and Human Service's declaration that [...] Performed By: #### C VDTB ####[facility] Cmzqzvxk[address] [place], [place] [address]Dr. Garima Pulliam INFLUENZA A AND B AGon 11-20 [facility] SEE BELOW Normal [facility] Comment on above: Result Comment: Nega tive for Flu A protein angiten. Infection due to Flu A cannot be ruled out. Flu A angiten in the sample may be below the detection limit of the test. Performed By: #### I NFLUAB ####[facility] Ycchzany[address] [place], [place] [address]Dr. Garima Pulliam INFLUBNEG SEE BELOW Normal [facility] Comment on above: Result Comment: Nega tive for Flu B protein antigen. Infection due to Flu B cannot be ruled out. Flu B antigen in the sample may be below the detection limit of the test. Performed By: #### I NFLUAB ####[facility] Zvodh[address]ugq[address] [place], [place] [address]Dr. Garima Pulliam INFLUENZA A AG Negative Normal NEGATIVE SEE COMMENT [facility] Comment on above: Performed By: #### I NFLUAB ####[facility] Ffgzhwpckw[address] [place], [place] [address]Dr. Garima Pulliam INFLUENZA B AG Negative Normal NEGATIVE SEE COMMENT [facility] Comment on above: Performed By: #### I NFLUAB ####[facility] Aikdbihhct[address] [place], [place] [address]Dr. Garima Pulliam PROF CHEM 8 (BAS METB)on Anion gap [Moles/Vol] 8.2 mmol/L Normal [facility] Comment on above: Performed By: #### B MP, HSTROPN, BNP ####[facility] Pymsnwidnb[address] [place] [address]Dr. Garima Pulliam Calcium [Mass/Vol] 8.7 mg/dL Normal 8.5-10.1 [facility] Comment on above: Performed By: #### B MP, HSTROPN, BNP ####[facility] Xpyslyqhas5814 [place] [address]Dr. Garima Pulliam Chloride [Moles/Vol] 103 mmol/L Normal 98-107 [facility] Comment on above: Performed By: #### B MP, HSTROPN, BNP ####[facility] Ikmimfcvye7979 [place] [address]Dr. Garima Pulliam CO2 [Moles/Vol] 29.4 mmol/L Normal 21.0-32.0 [facility] Comment on above: Performed By: #### B MP, HSTROPN, BNP ####[facility] Oyzrfhuhtw[address] [place], [place] [address]Dr. Garima Pulliam Creatinine [Mass/Vol] 0.69 mg/dL Critically low 0.70-1.30 [facility] Comment on above: Performed By: #### B MP, HSTROPN, BNP ####[facility] Hfxigjkktv5407 [place] [address]Dr. Garima Pulliam EGFR-AF MOZAMBICAN >60 Normal >=60 [facility] Comment on above: Performed By: #### B MP, HSTROPN, BNP ####[facility] Aejvgpmauo[address] [place], [place] [address]Dr. Garima Pulliam EGFR-NON AF MOZAMBICAN >60 Normal >=60 [facility] Comment on above: Performed By: #### B MP, HSTROPN, BNP ####[facility] Qegisoxdwn8695 [place] [address]Dr. Chapisrenu Pulliam Glucose [Mass/Vol] 209 mg/dL Critically high 74-106 [facility] Comment on above: Performed By: #### B MP, HSTROPN, BNP ####[facility] Pvwpcuujim6878 [place] [address]Dr. Garima Pulliam Potassium [Moles/Vol] 3.6 mmol/L Normal 3.5-5.1 [facility] Comment on above: Performed By: #### B MP, HSTROPN, BNP ####[facility] Ltjjwevfrd5409 [place] [address]Dr. Garima Pulliam Sodium [Moles/Vol] 137 mmol/L Normal 136-145 [facility] Comment on above: Performed By: #### B MP, HSTROPN, BNP ####[facility] Ktboqnneos2741 [place] [address]Dr. Garima Pulliam Urea nitrogen [Mass/Vol] 11.0 mg/dL Normal 7.0-18.0 [facility] Comment on above: Performed By: #### B MP, HSTROPN, BNP ####[facility] Dcppvicyeo6036 [place] [address]Dr. Garima Pulliam Urea nitrogen/Creatinine [Mass ratio] 15.9 mg/mg Normal [facility] Comment on above: Performed By: #### B MP, HSTROPN, BNP ####[facility] Hnemgztiht53[address] [place] [address]Dr. Garima Pulliam TROPONIN, HIGH SENSITIVITYon 11-20-2022 HSTROP 8.7 pg/mL Normal 4.0-76.1 [facility] Comment on above: Result Comment: CUT- OFF POINTS HAVE BEEN ESTABLISHED BASED ON THE FOURTH UNIVERSAL DEFINITIONS OF MYOCARDIALINFARCTION. THE UPPER REFERENCE LIMIT (URL) OF TROPONIN, DEFINED THE 99TH PERCENTILE OFcTnI DISTRIBUTION IN A REFERENCE POPULATION, HAS BEEN CONFIRMED THE DECISION THRESHOLDFOR [place] DIAGNOSIS. Performed By: #### B MP, HSTROPN, BNP ####[facility] Romehjdnea7[address] [place] [address]Dr. Garima Pulliam XR CHEST 1 Von 11-20-2022 XR CHEST 1 V Normal [facility] XR CHEST 1 Von 10-02-2022 XR CHEST 1 V Normal [facility] BNPon 09-29-2022 Natriuretic peptide B (Bld) [Mass/Vol] 107.0 pg/mL Normal <=900.0 [facility] Comment on above: Performed By: #### C MP, BNP, CMADM ####[facility] Rltgeoagsj77[address] [place] [address]Dr. Garima Pulliam CARDIAC NASH ADMITon 022 CK [Catalytic activity/Vol] 190 U/L Normal 39-308 [facility] Comment on above: Performed By: #### C MP, BNP, CMADM ####[facility] Aimimtxujf2939 [place] [address]Dr. Garima Pulliam CK.MB [Mass/Vol] 11.11 ng/mL Critically high <=3.60 [facility] Comment on above: Performed By: #### C MP, BNP, CMADM ####[facility] Uhkssizoml4513 [place] [address]Dr. Garima Pulliam HSTROP 11.8 pg/mL Normal 4.0-76.1 [facility] Comment on above: Result Comment: CUT- OFF POINTS HAVE BEEN ESTABLISHED BASED ON THE FOURTH UNIVERSAL DEFINITIONS OF MYOCARDIALINFARCTION. THE UPPER REFERENCE LIMIT (URL) OF TROPONIN, DEFINED THE 99TH PERCENTILE OFcTnI DISTRIBUTION IN A REFERENCE POPULATION, HAS BEEN CONFIRMED THE DECISION THRESHOLDFOR [place] DIAGNOSIS. Performed By: #### C MP, BNP, CMADM ####[facility] Qrovjyngyh5240 [place] [address]Dr. Garima Pulliam DORIS 133 ng/mL Critically high 16-96 [facility] Comment on above: Performed By: #### C MP, BNP, CMADM ####[facility] Arzjpfswtg7167 [place] [address]Dr. Garima Pulliam CBC AUTO DIFFon 09-29-2022 BASO # 0.0 103/ul Normal 0.0-0.1 [facility] Comment on above: Performed By: #### C BC ####[facility] Tpdgtvuvhq4008 [place] [address]Dr. Garima Pulliam Basophils/100 WBC (Bld) 0.2 % Normal 0.2-2.0 [facility] Comment on above: Performed By: #### C BC ####[facility] Grcgefmwel3602 [place] [address]Dr. Garima Pulliam EO # 0.1 103/ul Normal 0.0-0.7 [facility] Comment on above: Performed By: #### C BC ####[facility] Dfgbjomdoo0963 [place] [address]Dr. Garima Pulliam Eosinophils/100 WBC (Bld) 1.4 % Normal 0.9-7.0 [facility] Comment on above: Performed By: #### C BC ####[facility] Eerqvxtekh2767 [place] [address]Dr. Garima Pulliam Erythrocyte distribution width (RBC) [Ratio] 13.7 % Normal 11.0-15.0 [facility] Comment on above: Performed By: #### C BC ####[facility] Keqflezwqs[address] [place], [place] [address]Dr. Garima Pulliam Hematocrit (Bld) [Volume fraction] 45.4 % Normal 42.0-54.0 [facility] Comment on above: Performed By: #### C BC ####[facility] Neuixkpbya[address] [place], [place] [address]Dr. Garima Pulliam Hemoglobin (Bld) [Mass/Vol] 14.8 g/dL Normal 14.0-18.0 [facility] Comment on above: Performed By: #### C BC ####[facility] Eqhqiddhmb[address] [place], [place] [address]Dr. Garima Pulliam IG # 0.04 10e3/ul Critically high 0.00-0.03 [facility] Comment on above: Performed By: #### C BC ####[facility] Exihzayrzv39[address] [place], [place] [address]Dr. Garima Heraclio IG % 0.5 % Normal 0.0-0.5 [facility] Comment on above: Performed By: #### C BC ####[facility] Hsrddwxnhw[address] [place], [place] [address]DrAdalberto Pulliam LYMPH # 1.1 103/ul Critically low 1.2-3.8 [facility] Comment on above: Performed By: #### C BC ####[facility] Bkdashomlm9329 [place] [address]DrAdalberto Pulliam Lymphocytes/100 WBC (Bld) 12.7 % Critically low 20.5-60.0 [facility] Comment on above: Performed By: #### C BC ####[facility] Zadylmearu3900 [place] [address]DrAdalberto Pulliam MANUAL DIFF REQ NO Normal [facility] Comment on above: Performed By: #### C BC ####[facility] Phcfoinjbx4888 [place] [id number] Pulliam MCH (RBC) [Entitic mass] 30.0 pg Normal 25.9-34.0 [facility] Comment on above: Performed By: #### C BC ####[facility] Ssuwidylso[address] [place], [place] [address]Dr. Garima Pulliam MCHC (RBC) [Mass/Vol] 32.6 g/dL Normal 29.9-35.2 [facility] Comment on above: Performed By: #### C BC ####[facility] Zrffpxgfxx[address] [place], [place] [address]DrAdalberto Pulliam MCV (RBC) [Entitic vol] 91.9 fL Normal 80.0-94.0 [facility] Comment on above: Performed By: #### C BC ####[facility] Jgfjusfyhi0172 [place] [address]DrAdalberto Pulliam MONO # 0.4 103/ul Normal 0.3-0.8 [facility] Comment on above: Performed By: #### C BC ####[facility] Hdlmsylxwa[address] [place], [place] [address]DrAdalberto Pulliam Monocytes/100 WBC (Bld) 4.8 % Normal 1.7-12.0 [facility] Comment on above: Performed By: #### C BC ####[facility] Gtpoxrszvv[address] [place], [place] [address]DrAdalberto Pulliam NEUT # 7.1 103/ul Critically high 1.4-6.5 [facility] Comment on above: Performed By: #### C BC ####[facility] Cyszqznoux0387 [place] [address]Dr. Garima Pulliam Neutrophils/100 WBC (Bld) 80.4 % Critically high 43.0-75.0 [facility] Comment on above: Performed By: #### C BC ####[facility] Umfvzjxkpz8681 [place] [address]Dr. Garima Pulliam Platelet mean volume (Bld) [Entitic vol] 9.1 fL Critically low 9.5-13.5 [facility] Comment on above: Performed By: #### C BC ####[facility] Lcvoymfsju0463 [place] [address]Dr. Garima Pulliam PLT 200 103/ul Normal 150-450 [facility] Comment on above: Performed By: #### C BC ####[facility] Xwhqdsowix9406 [place] [address]Dr. Garima Pulliam RBC 4.94 106/ul Normal 4.70-6.10 [facility] Comment on above: Performed By: #### C BC ####[facility] Mwkuhcsqcs7886 [place] [address]Dr. Garima Pulliam WBC 8.9 103/ul Normal 4.0-11.0 [facility] Comment on above: Performed By: #### C BC ####[facility] Zeadvosxxa5130 [place] [id number]. Garima Pulliam [facility]on SARS-CoV-2 (COVID-19) RNA MARIE+probe Ql (Unsp spec) Not detected Normal NOT DETECTED [facility] Comment on above: Result Comment: When [...] for this test is supported by the [place] of Health and Human Service's declaration that [...] Performed By: #### C VDTBH ####[facility] Tostjopwkj8032 [place] [address]Dr. Garima Pulliam LACTATE/LACTIC ACIDon 2021 Lactate [Moles/Vol] 1.7 mmol/L Normal 0.4-1.9 [facility] Comment on above: Performed By: #### L ACT ####[facility] [address]tudhcsyrq[address] [place], [place] [address]Dr. Garima Pulliam PROF 14(COMP METB)on 022 Albumin [Mass/Vol] 3.8 g/dL Normal 3.4-5.0 [facility] Comment on above: Performed By: #### C MP, BNP, CMADM ####[facility] Akuwrzumix5155 [place] [address]Dr. Garima Pulliam Albumin/Globulin [Mass ratio] 1.5 {ratio} Normal [facility] Comment on above: Performed By: #### C MP, BNP, CMADM ####[facility] Csp[address]asfxg[address] [place], [place] [address]Dr. Garima Pulliam ALP [Catalytic activity/Vol] 62 U/L Normal 46-116 [facility] Comment on above: Performed By: #### C MP, BNP, CMADM ####[facility] Efxjzaxbpa1463 [place] [address]Dr. Garima Pulliam ALT [Catalytic activity/Vol] 37 U/L Normal 16-63 [facility] Comment on above: Performed By: #### C MP, BNP, CMADM ####[facility] Qpushukljt7755 [place] [address]Dr. Garima Pulliam Anion gap [Moles/Vol] 8.0 mmol/L Normal [facility] Comment on above: Performed By: #### C MP, BNP, CMADM ####[facility] Uewcyuoehm8813 [place] [address]Dr. Garima Pulliam AST [Catalytic activity/Vol] 20 U/L Normal 15-37 [facility] Comment on above: Performed By: #### C MP, BNP, CMADM ####[facility] Gpsfibocnz5968 [place] [address]Dr. Garima Pulliam Bilirubin [Mass/Vol] 0.6 mg/dL Normal 0.2-1.0 [facility] Comment on above: Performed By: #### C MP, BNP, CMADM ####[facility] Osjgbtiwmk2715 [place] [address]Dr. Garima Pulliam Calcium [Mass/Vol] 9.1 mg/dL Normal 8.5-10.1 [facility] Comment on above: Performed By: #### C MP, BNP, CMADM ####[facility] Aglesbmwoy[address] [place] [address]Dr. Garima Pulliam Chloride [Moles/Vol] 103 mmol/L Normal 98-107 [facility] Comment on above: Performed By: #### C MP, BNP, CMADM ####[facility] Ibcrmtjdxa4705 [place] [address]Dr. Garima Pulliam CO2 [Moles/Vol] 31.8 mmol/L Normal 21.0-32.0 [facility] Comment on above: Performed By: #### C MP, BNP, CMADM ####[facility] Crmdatcajy0607 [place] [address]Dr. Garima Pulliam Creatinine [Mass/Vol] 0.63 mg/dL Critically low 0.70-1.30 [facility] Comment on above: Performed By: #### C MP, BNP, CMADM ####[facility] Wsrkgqlrab4838 [place] [address]Dr. Garima Pulliam EGFR-AF MOZAMBICAN >60 Normal >=60 [facility] Comment on above: Performed By: #### C MP, BNP, CMADM ####[facility] Ugcijfyubx7637 [place] [id number]. Garima Pulliam EGFR-NON AF MOZAMBICAN >60 Normal >=60 [facility] Comment on above: Performed By: #### C MP, BNP, CMADM ####[facility] Nmstalsvmh9336 [place] [address]Dr. Garima Pulliam Globulin (S) [Mass/Vol] 2.6 g/dL Normal [facility] Comment on above: Performed By: #### C MP, BNP, CMADM ####[facility] Lbpzwsnyvb0955 [place] [address]Dr. Garima Pulliam Glucose [Mass/Vol] 103 mg/dL Normal 74-[address] [facility] Comment on above: Performed By: #### C MP, BNP, CMADM ####[facility] Tkbypwyfxe9562 [place] [address]Dr. Garima Pullaim Potassium [Moles/Vol] 3.8 mmol/L Normal 3.5-5.1 [facility] Comment on above: Performed By: #### C MP, BNP, CMADM ####[facility] Togackbubl7242 [place] [address]Dr. Garima Pulliam Protein [Mass/Vol] 6.4 g/dL Normal 6.4-8.[address] [facility] Comment on above: Performed By: #### C MP, BNP, CMADM ####[facility] Egsjpfxbge4946 [place] [address]Dr. Garima Pulliam Sodium [Moles/Vol] 139 mmol/L Normal 136-[address] [facility] Comment on above: Performed By: #### C MP, BNP, CMADM ####[facility] Cmrzlczllx4297 [place] [address]Dr. Garima Pulliam Urea nitrogen [Mass/Vol] 7.0 mg/dL Normal 7.0-18.0 [facility] Comment on above: Performed By: #### C MP, BNP, CMADM ####[facility] Tjppzzvjpe4468 [place] [address]Dr. Garima Pulliam Urea nitrogen/Creatinine [Mass ratio] 11.1 mg/mg Normal [facility] Comment on above: Performed By: #### C MP, BNP, CMADM ####[facility] Rxnsdeewtj1479 [place] [address]Dr. Chapisrenu Pulliam PROTIMEon 09-29-2022 INR Coag (PPP) [Relative time] 1.14 {INR} Normal [facility] Comment on above: Performed By: #### P T, PTT ####[facility] Zaphozleuy[address] [place], [place] [address]Dr. Garima Pulliam INR GUIDELINES SEE BELOW Normal [facility] Comment on above: Result Comment: [place] RED INR: 2.0 - 3.0 CONDITIONS NOT LISTED BELOW 2.5 - 3.5 FOR PROSTHETIC HEART VALVE REPLACEMENT 2.5 - 3.5 RECURRENT THROMBOSIS Performed By: #### P T, PTT ####[facility] Xnabknzesn[address] [place], [place] [address]Dr. Garima Pulliam PT Coag (PPP) [Time] 12.2 s Critically high 9.0-11.6 [facility] Comment on above: Performed By: #### P T, PTT ####[facility] Ivcdadsedc[address] [place], [place] [address]Dr. Garima Pulliam PTTon 09-29-2022 aPTT Coag (Bld) [Time] 29.3 s Normal 22.3-36.2 [facility] Comment on above: Performed By: #### P T, PTT ####[facility] Isdpkcilha[address] [place], [place] [address]Dr. Garima Pulliam XR CHEST 1 Von 09-29-2022 XR CHEST 1 V Normal [facility] CBC AUTO DIFFon 09-26-2022 BASO # 0.0 103/ul Normal 0.0-0.1 [facility] Comment on above: Performed By: #### C BC ####[facility] Qihxevunzx3[address] [place], [place] [address]Dr. Garima Pulliam Basophils/100 WBC (Bld) 0.2 % Normal 0.2-2.0 [facility] Comment on above: Performed By: #### C BC ####[facility] Ngyyqoyacg5503 [place] [address]Dr. Garima Pulliam EO # 0.1 103/ul Normal 0.0-0.7 [facility] Comment on above: Performed By: #### C BC ####[facility] Bllrzsdivy[address] [place], [place] [address]Dr. Garima Pulliam Eosinophils/100 WBC (Bld) 1.0 % Normal 0.9-7.0 [facility] Comment on above: Performed By: #### C BC ####[facility] Beqpoxzxza[address] [place], [place] [address]Dr. Garima Pulliam Erythrocyte distribution width (RBC) [Ratio] 13.4 % Normal 11.0-15.0 [facility] Comment on above: Performed By: #### C BC ####[facility] Qmyfhllofx[address] [place], [place] [address]Dr. Garima Pulliam Hematocrit (Bld) [Volume fraction] 46.3 % Normal 42.0-54.0 [facility] Comment on above: Performed By: #### C BC ####[facility] Empeikknvu[address] [place], [place] [address]Dr. Garima Pulliam Hemoglobin (Bld) [Mass/Vol] 15.3 g/dL Normal 14.0-18.0 [facility] Comment on above: Performed By: #### C BC ####[facility] [address]qbt[address]vj[address] [place], [place] [address]Dr. Garima Pulliam IG # 0.05 10e3/ul Critically high 0.00-0.03 [facility] Comment on above: Performed By: #### C BC ####[facility] Npeddmzcjb[address] [place], [place] [address]Dr. Garima Pulliam IG % 0.4 % Normal 0.0-0.5 [facility] Comment on above: Performed By: #### C BC ####[facility] Hzhbklstvi[address] [place], [place] [address]Dr. Garima Pulliam LYMPH # 1.7 103/ul Normal 1.2-3.8 [facility] Comment on above: Performed By: #### C BC ####[facility] Labbpmeomb5471 [place] [address]Dr. Chapisrenu Pulliam Lymphocytes/100 WBC (Bld) 12.7 % Critically low 20.5-60.0 [facility] Comment on above: Performed By: #### C BC ####[facility] Bejesulmlw8810 [place] [address]Dr. Chapisrenu Pulliam MANUAL DIFF REQ NO Normal [facility] Comment on above: Performed By: #### C BC ####[facility] [address]zpebo4[address] [place] [address]Dr. Garima Pulliam MCH (RBC) [Entitic mass] 30.1 pg Normal 25.9-34.0 [facility] Comment on above: Performed By: #### C BC ####[facility] Elvoqwseex[address] [place], [place] [address]Dr. Garima Pulliam MCHC (RBC) [Mass/Vol] 33.0 g/dL Normal 29.9-35.2 [facility] Comment on above: Performed By: #### C BC ####[facility] Ombpgtivrv[address] [place], [place] [address]Dr. Gairma Pulliam MCV (RBC) [Entitic vol] 91.1 fL Normal 80.0-94.0 [facility] Comment on above: Performed By: #### C BC ####[facility] Emidbiucoi[address] [place], [place] [address]Dr. Garima Pulliam MONO # 0.9 103/ul Critically high 0.3-0.8 The [place] Comment on above: Performed By: #### C BC ####[facility] Fqturomgzs[address] [place], [place] [address]Dr. Garima Pulliam Monocytes/100 WBC (Bld) 7.0 % Normal 1.7-12.0 [facility] Comment on above: Performed By: #### C BC ####[facility] Yuoxmsdmxr[address] [place], [place] [address]Dr. Garima Pulliam NEUT # 10.4 103/ul Critically high 1.4-6.5 The [facility] Comment on above: Performed By: #### C BC ####[facility] Khpequesyo0799 [place] [address]Dr. Garima Pulliam Neutrophils/100 WBC (Bld) 78.7 % Critically high 43.0-75.0 [facility] Comment on above: Performed By: #### C BC ####[facility] Venscatmqb[address] [place] [address]Dr. Garima Pulliam Platelet mean volume (Bld) [Entitic vol] 8.9 fL Critically low 9.5-13.5 [facility] Comment on above: Performed By: #### C BC ####[facility] Yfeulslcer5146 [place] [address]Dr. Garima Pulliam PLT 195 103/ul Normal 150-450 [facility] Comment on above: Performed By: #### C BC ####[facility] Qpjlaejawx7943 [place] [address]Dr. Garima Pulliam RBC 5.08 106/ul Normal 4.70-6.10 [facility] Comment on above: Performed By: #### C BC ####[facility] Uydqlxepwp6038 [place] [address]Dr. Garima Pulliam WBC 13.2 103/ul Critically high 4.0-11.0 The [facility] Comment on above: Performed By: #### C BC ####[facility] Jqqyxlhxce7876 [place] [address]Dr. Garima Pulliam PROF 14(COMP METB)on 022 Albumin [Mass/Vol] 3.5 g/dL Normal 3.4-5.0 [facility] Comment on above: Performed By: #### C DAVID HSTROPN ####[facility] Dfueoanaex8617 [place] [address]Dr. Garima Pulliam Albumin/Globulin [Mass ratio] 1.2 {ratio} Normal [facility] Comment on above: Performed By: #### C DAVID, HSTROPN ####[facility] Cmcbcgvfjz8687 [place] [address]Dr. Garima Pulliam ALP [Catalytic activity/Vol] 71 U/L Normal 46-116 [facility] Comment on above: Performed By: #### C DAVID, HSTROPN ####[facility] Pnkecclwvq7785 [place] [address]Dr. Garima Pulliam ALT [Catalytic activity/Vol] 37 U/L Normal 16-63 [facility] Comment on above: Performed By: #### C MP, HSTROPN ####[facility] Qnzaivnykd8016 [place] [address]Dr. Garima Pulliam Anion gap [Moles/Vol] 4.8 mmol/L Normal [facility] Comment on above: Performed By: #### C MP, HSTROPN ####[facility] Hjlcdmuuec4258 [place] [address]Dr. Garima Pulliam AST [Catalytic activity/Vol] 21 U/L Normal 15-37 [facility] Comment on above: Performed By: #### C DAVID, HSTROPN ####[facility] Zehaspcbmp64[address] [place], [place] [address]Dr. Garima Pulliam Bilirubin [Mass/Vol] 0.3 mg/dL Normal 0.2-1.0 [facility] Comment on above: Performed By: #### C DAVID, HSTROPN ####[facility] Dozjcuwpsw7[address] [place], [place] [address]Dr. Garima Pulliam Calcium [Mass/Vol] 8.9 mg/dL Normal 8.5-10.1 [facility] Comment on above: Performed By: #### C DAVID, HSTROPN ####[facility] Xntrvgstjs37[address] [place], [place] [address]Dr. Garima Pulliam Chloride [Moles/Vol] 106 mmol/L Normal 98-107 [facility] Comment on above: Performed By: #### C MP, HSTROPN ####[facility] Bkixpkfhfa4[address] [place], [place] [address]Dr. Garima Pulliam CO2 [Moles/Vol] 29.8 mmol/L Normal 21.0-32.0 [facility] Comment on above: Performed By: #### C MP, HSTROPN ####[facility] Qiffbtdjst2325[address] [place], [place] [address]Dr. Yilan Pulliam Creatinine [Mass/Vol] 0.68 mg/dL Critically low 0.70-1.30 [facility] Comment on above: Performed By: #### C DAVID, HSTROPN ####[facility] Syxfdhsjbc5636 [place] [address]Dr. Garima Pulliam EGFR-AF MOZAMBICAN >60 Normal >=60 [facility] Comment on above: Performed By: #### C DAVID, HSTROPN ####[facility] Wdpchyhunh3588 [place] [address]Dr. Garima Pluliam EGFR-NON AF MOZAMBICAN >60 Normal >=60 [facility] Comment on above: Performed By: #### C DAVID, HSTROPN ####[facility] Pnnkbslfte2685 [place] [address]Dr. Garima Pulliam Globulin (S) [Mass/Vol] 2.8 g/dL Normal [facility] Comment on above: Performed By: #### C DAVID, HSTROPN ####[facility] Pgekuwsigk1185 [place] [address]Dr. Garmia Pulliam Glucose [Mass/Vol] 133 mg/dL Critically high 74-106 [facility] Comment on above: Performed By: #### C DAVID, HSTROPN ####[facility] Xuuklyewom3472 [place] [address]Dr. Garima Pulliam Potassium [Moles/Vol] 3.6 mmol/L Normal 3.5-5.1 [facility] Comment on above: Performed By: #### C DAVID, HSTROPN ####[facility] Ghimecqxty0080 [place] [address]Dr. Garima Pulliam Protein [Mass/Vol] 6.3 g/dL Critically low 6.4-8.2 [facility] Comment on above: Performed By: #### C DAVID, HSTROPN ####[facility] Kewoztljne9369 [place] [address]Dr. Garima Pulliam Sodium [Moles/Vol] 137 mmol/L Normal 136-145 [facility] Comment on above: Performed By: #### C DAVID, HSTROPN ####[facility] Hdywentfbk7754 [place] [address]Dr. Garima Pulliam Urea nitrogen [Mass/Vol] 15.0 mg/dL Normal 7.0-18.0 [facility] Comment on above: Performed By: #### C MP, HSTROPN ####[facility] Lqrnegcfez9240 [place] [address]Dr. Garima Pulliam Urea nitrogen/Creatinine [Mass ratio] 22.1 mg/mg Normal [facility] Comment on above: Performed By: #### C MP, HSTROPN ####[facility] Slweynnjcv0790 [place] [address]Dr. Garima Pulliam TROPONIN, HIGH SENSITIVITYon 09-26-2022 HSTROP 12.8 pg/mL Normal 4.0-76.1 [facility] Comment on above: Result Comment: CUT- OFF POINTS HAVE BEEN ESTABLISHED BASED ON THE FOURTH UNIVERSAL DEFINITIONS OF MYOCARDIALINFARCTION. THE UPPER REFERENCE LIMIT (URL) OF TROPONIN, DEFINED THE 99TH PERCENTILE OFcTnI DISTRIBUTION IN A REFERENCE POPULATION, HAS BEEN CONFIRMED THE DECISION THRESHOLDFOR [place] DIAGNOSIS. Performed By: #### C MP, HSTROPN ####[facility] Bzcmqydpcl8891 [place] [address]Dr. Garima Pulliam XR CHEST 1 Von 09-26-2022 XR CHEST 1 V Normal [facility] XR CHEST 1 Von 09-16-2022 XR CHEST 1 V Normal [facility] CBC AUTO DIFFon 09-15-2022 BASO # 0.0 103/ul Normal 0.0-0.1 [facility] Comment on above: Performed By: #### C BC ####[facility] Jcgnmvirkq9178 [place] [address]Dr. Garima Heraclio Basophils/100 WBC (Bld) 0.1 % Critically low 0.2-2.0 [facility] Comment on above: Performed By: #### C BC ####[facility] Efrxswlntr3714 [place] [address]Dr. Garima Heraclio EO # 0.0 103/ul Normal 0.0-0.7 [facility] Comment on above: Performed By: #### C BC ####[facility] Iglfwxwmsn7173 [place] [address]Dr. Garima Pulliam Eosinophils/100 WBC (Bld) 0.1 % Critically low 0.9-7.0 [facility] Comment on above: Performed By: #### C BC ####[facility] Sjhjsqalid7589 [place] [address]Dr. Garima Pulliam Erythrocyte distribution width (RBC) [Ratio] 14.1 % Normal 11.0-15.0 [facility] Comment on above: Performed By: #### C BC ####[facility] Ofahcbsqjc3740[address] [place], [place] [address]Dr. Garima Pulliam Hematocrit (Bld) [Volume fraction] 46.1 % Normal 42.0-54.0 [facility] Comment on above: Performed By: #### C BC ####[facility] Uwonbozlnj[address] [place], [place] [address]Dr. Garima Pulliam Hemoglobin (Bld) [Mass/Vol] 15.0 g/dL Normal 14.0-18.0 [facility] Comment on above: Performed By: #### C BC ####[facility] Nwesqdjmps[address] [place], [place] [address]Dr. Garima Pulliam IG # 0.03 10e3/ul Normal 0.00-0.03 [facility] Comment on above: Performed By: #### C BC ####[facility] Zfofpzltgw55[address] [place], [place] [address]Dr. Garima Pulliam IG % 0.3 % Normal 0.0-0.5 [facility] Comment on above: Performed By: #### C BC ####[facility] Bsyziejatp8[address] [place], [place] [address]Dr. Garima Pulliam LYMPH # 0.6 103/ul Critically low 1.2-3.8 The [facility] Comment on above: Performed By: #### C BC ####[facility] Nsaftvyasp8[address] [place], [place] [address]Dr. Garima Pulliam Lymphocytes/100 WBC (Bld) 5.8 % Critically low 20.5-60.0 [facility] Comment on above: Performed By: #### C BC ####[facility] Sqocaespzf1121 [place] [address]Dr. Garima Pulliam MANUAL DIFF REQ NO Normal [facility] Comment on above: Performed By: #### C BC ####[facility] Orxiaimpoc9860 [place] [address]Dr. Garima Pulliam MCH (RBC) [Entitic mass] 30.2 pg Normal 25.9-34.0 [facility] Comment on above: Performed By: #### C BC ####[facility] Fjrtzsrtlm2001 [place] [address]Dr. Garima Pulliam MCHC (RBC) [Mass/Vol] 32.5 g/dL Normal 29.9-35.2 [facility] Comment on above: Performed By: #### C BC ####[facility] Txaafboexh[address] [place], [place] [address]Dr. Garima Pulliam MCV (RBC) [Entitic vol] 92.8 fL Normal 80.0-94.0 [facility] Comment on above: Performed By: #### C BC ####[facility] Mmxb[address]aral[address] [place], [place] [address]Dr. Garima Pulliam MONO # 0.3 103/ul Normal 0.3-0.8 [facility] Comment on above: Performed By: #### C BC ####[facility] Jgkkeprvlb24[address] [place], [place] [address]Dr. Garima Pulliam Monocytes/100 WBC (Bld) 3.2 % Normal 1.7-12.0 [facility] Comment on above: Performed By: #### C BC ####[facility] Sdkvzwowsx[address] [place], [place] [address]Dr. Garima Pulliam NEUT # 9.8 103/ul Critically high 1.4-6.5 The [place] Comment on above: Performed By: #### C BC ####[facility] S[address]fkaiyuq[address] [place], [place] [address]Dr. Garima Pulliam Neutrophils/100 WBC (Bld) 90.5 % Critically high 43.0-75.0 [facility] Comment on above: Performed By: #### C BC ####[facility] Ikyzdajjxu8056 [place] [address]Dr. Garima Pulliam Platelet mean volume (Bld) [Entitic vol] 9.4 fL Critically low 9.5-13.5 [facility] Comment on above: Performed By: #### C BC ####[facility] Ygsawocteu1936 [place] [address]Dr. Garima Pulliam PLT 208 103/ul Normal 150-450 [facility] Comment on above: Performed By: #### C BC ####[facility] Pxhxloovxl[address] [place], [place] [address]Dr. Garima Pulliam RBC 4.97 106/ul Normal 4.70-6.10 [facility] Comment on above: Performed By: #### C BC ####[facility] Ttonrstjnl[address] [place], [place] [address]Dr. Garima Pulliam WBC 10.8 103/ul Normal 4.0-11.0 [facility] Comment on above: Performed By: #### C BC ####[facility] Kfbfbvpdgh8397[address] [place], [place] [address]Dr. Garima Pulliam PROF 14(COMP METB)on 022 Albumin [Mass/Vol] 4.0 g/dL Normal 3.4-5.0 [facility] Comment on above: Performed By: #### C MP ####[facility] Peiokmuveh[address] [place], [place] [address]Dr. Garima Pulliam Albumin/Globulin [Mass ratio] 1.5 {ratio} Normal [facility] Comment on above: Performed By: #### C MP ####[facility] Wspwaaporh[address] [place], [place] [address]Dr. Garima Pulliam ALP [Catalytic activity/Vol] 73 U/L Normal 46-116 [facility] Comment on above: Performed By: #### C MP ####[facility] Pmeioohuls04[address] [place], [place] [address]Dr. Garima Pulliam ALT [Catalytic activity/Vol] 42 U/L Normal 16-63 [facility] Comment on above: Performed By: #### C MP ####[facility] Cvwquffbqr6036 [place] [address]Dr. Garima Pulliam Anion gap [Moles/Vol] 9.1 mmol/L Normal [facility] Comment on above: Performed By: #### C MP ####[facility] Mvoctgrdcb8416 [place] [address]Dr. Garima Pulliam AST [Catalytic activity/Vol] 28 U/L Normal 15-37 [facility] Comment on above: Performed By: #### C MP ####[facility] Ufdgpvadrm4009 [place] [address]Dr. Garima Pulliam Bilirubin [Mass/Vol] 0.6 mg/dL Normal 0.2-1.0 [facility] Comment on above: Performed By: #### C MP ####[facility] Srguzdyvqx4[address] [place], [place] [address]Dr. Garima Pulliam Calcium [Mass/Vol] 8.6 mg/dL Normal 8.5-10.1 [facility] Comment on above: Performed By: #### C MP ####[facility] Cmxfzgkzgx39[address] [place], [place] [address]Dr. Garima Pulliam Chloride [Moles/Vol] 105 mmol/L Normal 98-107 [facility] Comment on above: Performed By: #### C MP ####[facility] Jgdfjjgccq[address] [place], [place] [address]Dr. Garima Pulliam CO2 [Moles/Vol] 28.5 mmol/L Normal 21.0-32.0 [facility] Comment on above: Performed By: #### C MP ####[facility] Wsckcxfmqe0214[address] [place], [place] [address]Dr. Garima Pulliam Creatinine [Mass/Vol] 0.78 mg/dL Normal 0.70-1.30 [facility] Comment on above: Performed By: #### C MP ####[facility] Fklxxhmmgw6012 [place] [address]Dr. Garima Pulliam EGFR-AF MOZAMBICAN >60 Normal >=60 [facility] Comment on above: Performed By: #### C MP ####[facility] Psdtzvwfqd5239 [place] [address]Dr. Garima Pulliam EGFR-NON AF MOZAMBICAN >60 Normal >=60 [facility] Comment on above: Performed By: #### C MP ####[facility] Bvvzsudtqw3309 [place] [address]Dr. Garima Pulliam Globulin (S) [Mass/Vol] 2.7 g/dL Normal [facility] Comment on above: Performed By: #### C MP ####[facility] Gerdymsawy1517 [place] [address]Dr. Garima Pulliam Glucose [Mass/Vol] 220 mg/dL Critically high 74-106 T [facility] Comment on above: Performed By: #### C MP ####[facility] Ulzmawbybh5[address] [place], [place] [address]Dr. Garima Pulliam Potassium [Moles/Vol] 3.6 mmol/L Normal 3.5-5.1 [facility] Comment on above: Performed By: #### C MP ####[facility] Nbtmkscesn[address] [place], [place] [address]Dr. Garima Pulliam Protein [Mass/Vol] 6.7 g/dL Normal 6.4-8.[address] [facility] Comment on above: Performed By: #### C MP ####[facility] Shrzulfdnq[address] [place], [place] [address]Dr. Garima Pulliam Sodium [Moles/Vol] 139 mmol/L Normal 136-[address] [facility] Comment on above: Performed By: #### C MP ####[facility] Uwlykkeqcc[address] [place], [place] [address]Dr. Garima Pulliam Urea nitrogen [Mass/Vol] 11.0 mg/dL Normal 7.0-18.0 [facility] Comment on above: Performed By: #### C MP ####[facility] Hyecyfflts[address] [place], [place] [address]Dr. Garima Pulliam Urea nitrogen/Creatinine [Mass ratio] 14.1 mg/mg Normal [facility] Comment on above: Performed By: #### C MP ####[facility] Wkzqxtavwl[address] [place], [place] [address]Dr. Garima Pulliam CARDIAC NASH 3-6on 2 CK [Catalytic activity/Vol] 240 U/L Normal 39-308 [facility] Comment on above: Performed By: #### C MREP ####[facility] [address]wk[address] [place], [place] [address]Fq. Garima Pulliam CK.MB [Mass/Vol] 10.38 ng/mL Critically high <=3.60 [facility] Comment on above: Performed By: #### C MREP ####[facility] Lhnsjefqnm5623 [place] [address]Dr. Garima Pulliam HSTROP 18.5 pg/mL Normal 4.0-76.1 [facility] Comment on above: Result Comment: CUT- OFF POINTS HAVE BEEN ESTABLISHED BASED ON THE FOURTH UNIVERSAL DEFINITIONS OF MYOCARDIALINFARCTION. THE UPPER REFERENCE LIMIT (URL) OF TROPONIN, DEFINED THE 99TH PERCENTILE OFcTnI DISTRIBUTION IN A REFERENCE POPULATION, HAS BEEN CONFIRMED THE DECISION THRESHOLDFOR [place] DIAGNOSIS. Performed By: #### C MREP ####[facility] Wylgcruism7532 [place] [address]Dr. Garima Pulliam CK [Catalytic activity/Vol] 257 U/L Normal 39-308 [facility] Comment on above: Performed By: #### C MREP ####[facility] Zcfnnwnfjx8895 [place] [address]Dr. Garima Pulliam CK.MB [Mass/Vol] 9.89 ng/mL Critically high <=3.60 [facility] Comment on above: Performed By: #### C MREP ####[facility] Ejtexasaaw0600 [place] [address]Dr. Garima Pulliam HSTROP 16.9 pg/mL Normal 4.0-76.1 [facility] Comment on above: Result Comment: CUT- OFF POINTS HAVE BEEN ESTABLISHED BASED ON THE FOURTH UNIVERSAL DEFINITIONS OF MYOCARDIALINFARCTION. THE UPPER REFERENCE LIMIT (URL) OF TROPONIN, DEFINED THE 99TH PERCENTILE OFcTnI DISTRIBUTION IN A REFERENCE POPULATION, HAS BEEN CONFIRMED THE DECISION THRESHOLDFOR [place] DIAGNOSIS. Performed By: #### C MREP ####[facility] Qjsznmdvcg8928 [place] [address]Dr. Garima Pulliam CBC AUTO DIFFon 09-13-2022 BASO # 0.0 103/ul Normal 0.0-0.1 [facility] Comment on above: Performed By: #### C BC ####[facility] Ttzvbhuczh[address] [place], [place] [address]Dr. Chapisrenu Pulliam Basophils/100 WBC (Bld) 0.1 % Critically low 0.2-2.0 [facility] Comment on above: Performed By: #### C BC ####[facility] Hhafcpcjgr[address] [place], [place] [address]Dr. Chapisrenu Pulliam EO # 0.0 103/ul Normal 0.0-0.7 [facility] Comment on above: Performed By: #### C BC ####[facility] Ogzddztvmw06[address] [place], [place] [address]Dr. Chapisrenu Pulliam Eosinophils/100 WBC (Bld) 0.0 % Critically low 0.9-7.0 [facility] Comment on above: Performed By: #### C BC ####[facility] Jpjortuvnu[address] [place], [place] [address]Dr. Chapisrenu Pulliam Erythrocyte distribution width (RBC) [Ratio] 13.6 % Normal 11.0-15.0 [facility] Comment on above: Performed By: #### C BC ####[facility] Meinexjjyq5[address] [place], [place] [address]Dr. Garima Pulliam Hematocrit (Bld) [Volume fraction] 48.2 % Normal 42.0-54.0 [facility] Comment on above: Performed By: #### C BC ####[facility] Syfpvfyinj[address] [place], [place] [address]Dr. Chapisrenu Pulliam Hemoglobin (Bld) [Mass/Vol] 16.0 g/dL Normal 14.0-18.0 [facility] Comment on above: Performed By: #### C BC ####[facility] Flhfyycapj[address] [place], [place] [address]Dr. Garima Pulliam IG # 0.02 10e3/ul Normal 0.00-0.03 [facility] Comment on above: Performed By: #### C BC ####[facility] Fnwozzolgo0977 [place] [address]Dr. Garima Pulliam IG % 0.3 % Normal 0.0-0.5 [facility] Comment on above: Performed By: #### C BC ####[facility] Vdmdebynxw9324 [place] [address]Dr. Garima Heraclio LYMPH # 0.5 103/ul Critically low 1.2-3.8 [facility] Comment on above: Performed By: #### C BC ####[facility] Sxmgvznmwa8566 [place] [address]Dr. Chapisrenu Pulliam Lymphocytes/100 WBC (Bld) 7.7 % Critically low 20.5-60.0 [facility] Comment on above: Performed By: #### C BC ####[facility] Jodlklahgp3816 [place] [address]Dr. Garima Pulliam MANUAL DIFF REQ NO Normal [facility] Comment on above: Performed By: #### C BC ####[facility] Enswraeopp5303 [place] [address]Dr. Garima Pulliam MCH (RBC) [Entitic mass] 30.6 pg Normal 25.9-34.0 [facility] Comment on above: Performed By: #### C BC ####[facility] Upbfydjlja8719 [place] [address]Dr. Garima Heraclio MCHC (RBC) [Mass/Vol] 33.2 g/dL Normal 29.9-35.2 [facility] Comment on above: Performed By: #### C BC ####[facility] Texeytbsfs6506 [place] [address]Dr. Garima Pulliam MCV (RBC) [Entitic vol] 92.2 fL Normal 80.0-94.0 [facility] Comment on above: Performed By: #### C BC ####[facility] Konswmewel[address] [place], [place] [address]Dr. Garima Pulliam MONO # 0.0 103/ul Critically low 0.3-0.8 [facility] Comment on above: Performed By: #### C BC ####[facility] Munawzeeap5586 [place] [address]Dr. Garima Pulliam Monocytes/100 WBC (Bld) 0.4 % Critically low 1.7-12.0 [facility] Comment on above: Performed By: #### C BC ####[facility] Gdkasfrgid4242 [place] [address]Dr. Garima Pulliam NEUT # 6.2 103/ul Normal 1.4-6.5 [facility] Comment on above: Performed By: #### C BC ####[facility] Fiwvrjnxod0724 [place] [address]Dr. Garima Pulliam Neutrophils/100 WBC (Bld) 91.5 % Critically high 43.0-75.0 [facility] Comment on above: Performed By: #### C BC ####[facility] Irvhrcltqu9079 [place] [address]Dr. Garima Pulliam Platelet mean volume (Bld) [Entitic vol] 8.7 fL Critically low 9.5-13.5 [facility] Comment on above: Performed By: #### C BC ####[facility] Ujjbdfkgyg[address] [place], [place] [address]Dr. Garima Pulliam PLT 179 103/ul Normal 150-450 [facility] Comment on above: Performed By: #### C BC ####[facility] Gvzrxjxtqh7880 [place] [address]Dr. Garima Pulliam RBC 5.23 106/ul Normal 4.70-6.10 [facility] Comment on above: Performed By: #### C BC ####[facility] Xmvvrezvgy6138 [place] [id number]. Garima Pulliam WBC 6.7 103/ul Normal 4.0-11.0 [facility] Comment on above: Performed By: #### C BC ####[facility] [address]vy[address]suqxv[address] [place], [place] [address]DrAdalberto Garima Heraclio PROF CHEM 8 (BAS METB)on Anion gap [Moles/Vol] 12.1 mmol/L Normal Th [facility] Comment on above: Performed By: #### B MP ####[facility] Mtpwxtzysq9476 [place] [address]Dr. Garima Pulliam Calcium [Mass/Vol] 8.7 mg/dL Normal 8.5-10.1 [facility] Comment on above: Performed By: #### B MP ####[facility] Wlepxlmmwx4741 [place] [id number]. Garima Pulliam Chloride [Moles/Vol] 105 mmol/L Normal 98-107 [facility] Comment on above: Performed By: #### B MP ####[facility] [address] [place] [address]Dr. Garima Pulliam CO2 [Moles/Vol] 25.5 mmol/L Normal 21.0-32.0 [facility] Comment on above: Performed By: #### B MP ####[facility] [address] [place], [place] [address]Dr. Garima Pulliam Creatinine [Mass/Vol] 0.63 mg/dL Critically low 0.70-1.30 [facility] Comment on above: Performed By: #### B MP ####[facility] [address]ott[address] [place] [address]Dr. Garima Pulliam EGFR-AF MOZAMBICAN >60 Normal >=60 [facility] Comment on above: Performed By: #### B MP ####[facility] [address]cqubv[address] [place] [address]Dr. Garima Pulliam EGFR-NON AF MOZAMBICAN >60 Normal >=60 [facility] Comment on above: Performed By: #### B MP ####[facility] Idmfazvqlr54[address] [place] [address]Dr. Garima Pulliam Glucose [Mass/Vol] 162 mg/dL Critically high 74-106 [facility] Comment on above: Performed By: #### B MP ####[facility] Nkmtfucsxx9238 [place] [address]Dr. Garima Pulliam Potassium [Moles/Vol] 3.6 mmol/L Normal 3.5-5.1 [facility] Comment on above: Performed By: #### B MP ####[facility] [address] [place] [id number]. Garima Pulliam Sodium [Moles/Vol] 139 mmol/L Normal 136-145 [facility] Comment on above: Performed By: #### B MP ####[facility] Ofaalulrtd7[address] [place] [address]Dr. Garima Heraclio Urea nitrogen [Mass/Vol] 9.0 mg/dL Normal 7.0-18.0 [facility] Comment on above: Performed By: #### B MP ####[facility] Uxvirlspip[address] [place] [address]Dr. Garima Pulliam Urea nitrogen/Creatinine [Mass ratio] 14.3 mg/mg Normal [facility] Comment on above: Performed By: #### B DAVID ####[facility] [address] [place] [address]Dr. Garima Pulliam CARDIAC NASH ADMITon 022 CK [Catalytic activity/Vol] 304 U/L Normal 39-308 [facility] Comment on above: Performed By: #### B DAVID, NANCY ####[facility] [address]xx[address]cvqhm[address] [place] [id number]. Garima Pulliam CK.MB [Mass/Vol] 11.81 ng/mL Critically high <=3.60 [facility] Comment on above: Performed By: #### B DAVID, NANCY ####[facility] [address] [place] [address]Dr. Chapisrenu Pulliam HSTROP 13.3 pg/mL Normal 4.0-76.1 [facility] Comment on above: Result Comment: CUT- OFF POINTS HAVE BEEN ESTABLISHED BASED ON THE FOURTH UNIVERSAL DEFINITIONS OF MYOCARDIALINFARCTION. THE UPPER REFERENCE LIMIT (URL) OF TROPONIN, DEFINED THE 99TH PERCENTILE OFcTnI DISTRIBUTION IN A REFERENCE POPULATION, HAS BEEN CONFIRMED THE DECISION THRESHOLDFOR [place] DIAGNOSIS. Performed By: #### B DAVID, CMADM ####[facility] Z[address]udo[address]qw[address] [place] [address]Dr. Garima Pulliam DORIS 133 ng/mL Critically high 16-96 [facility] Comment on above: Performed By: #### B ERVIN HERNANDEZDM ####[facility] Rsqmywtwuj4[address] [place] [id number]. Garima Heraclio CBC AUTO DIFFon 09-12-2022 BASO # 0.0 103/ul Normal 0.0-0.1 [facility] Comment on above: Performed By: #### C BC ####[facility] Nlpgj[address]vydv[address] [place] [id number]. Chapisrenu Pulliam Basophils/100 WBC (Bld) 0.2 % Normal 0.2-2.0 [facility] Comment on above: Performed By: #### C BC ####[facility] [address] [place], [place] [address]Dr. Chapisrenu Pulliam EO # 0.2 103/ul Normal 0.0-0.7 [facility] Comment on above: Performed By: #### C BC ####[facility] [address] [place], [place] [address]Dr. Chapisrenu Pulliam Eosinophils/100 WBC (Bld) 1.3 % Normal 0.9-7.0 [facility] Comment on above: Performed By: #### C BC ####[facility] [address] [place], [place] [address]Dr. Garima Heraclio Erythrocyte distribution width (RBC) [Ratio] 13.7 % Normal 11.0-15.0 [facility] Comment on above: Performed By: #### C BC ####[facility] [address] [place], [place] [address]Dr. Graima Heraclio Hematocrit (Bld) [Volume fraction] 46.4 % Normal 42.0-54.0 [facility] Comment on above: Performed By: #### C BC ####[facility] [address] [place], [place] [address]Dr. Chapisrenu Pulliam Hemoglobin (Bld) [Mass/Vol] 15.7 g/dL Normal 14.0-18.0 [facility] Comment on above: Performed By: #### C BC ####[facility] [address] [place], [place] [address]Dr. Garima Pulliam IG # 0.04 10e3/ul Critically high 0.00-0.03 [facility] Comment on above: Performed By: #### C BC ####[facility] Ipsslhfoav32[address] [place] [address]DrAdalberto Chapisrenu Pulliam IG % 0.3 % Normal 0.0-0.5 [facility] Comment on above: Performed By: #### C BC ####[facility] Susmuusane[address] [place] [address]DrAdalberto Pulliam LYMPH # 1.7 103/ul Normal 1.2-3.8 [facility] Comment on above: Performed By: #### C BC ####[facility] Irdzwobmzz3408 [place] [address]DrAdalberto Pulliam Lymphocytes/100 WBC (Bld) 11.5 % Critically low 20.5-60.0 [facility] Comment on above: Performed By: #### C BC ####[facility] [address]ccohcdaot4[address] [place] [address]DrAdalberto Pulliam MANUAL DIFF REQ NO Normal [facility] Comment on above: Performed By: #### C BC ####[facility] [address]pryyfwstk[address] [place] [id number] Garima Heraclio MCH (RBC) [Entitic mass] 31.0 pg Normal 25.9-34.0 [facility] Comment on above: Performed By: #### C BC ####[facility] [address]zqlxzzvr[address] [place] [address]DrAdalberto Chapisrenu Pulliam MCHC (RBC) [Mass/Vol] 33.8 g/dL Normal 29.9-35.2 [facility] Comment on above: Performed By: #### C BC ####[facility] Tvbd[address]pnhk[address] [place] [address]DrAdalberto Chapisrenu Pulliam MCV (RBC) [Entitic vol] 91.7 fL Normal 80.0-94.0 [facility] Comment on above: Performed By: #### C BC ####[facility] Xfzohqceyz24[address] [place] [address]DrAdalberto Pulliam MONO # 0.8 103/ul Normal 0.3-0.8 [facility] Comment on above: Performed By: #### C BC ####[facility] Xjsktenubk04[address] [place] [address]Dr. Garima Pulliam Monocytes/100 WBC (Bld) 5.2 % Normal 1.7-12.0 [facility] Comment on above: Performed By: #### C BC ####[facility] V[address]fwrugk[address] [place] [address]Dr. Garima Pulliam NEUT # 11.7 103/ul Critically high 1.4-6.5 [facility] Comment on above: Performed By: #### C BC ####[facility] Vxfmvmpawb40[address] [place] [address]Dr. Garima Pulliam Neutrophils/100 WBC (Bld) 81.5 % Critically high 43.0-75.0 [facility] Comment on above: Performed By: #### C BC ####[facility] Zgdrronyze[address] [place] [address]Dr. Garima Pulliam Platelet mean volume (Bld) [Entitic vol] 8.6 fL Critically low 9.5-13.5 [facility] Comment on above: Performed By: #### C BC ####[facility] [address] [place], [place] [address]Dr. Garima Pulliam PLT 191 103/ul Normal 150-450 [facility] Comment on above: Performed By: #### C BC ####[facility] Jftmajysjx[address] [place] [address]Dr. Garima Pulliam RBC 5.06 106/ul Normal 4.70-6.10 [facility] Comment on above: Performed By: #### C BC ####[facility] Byxqyrawoi[address] [place] [address]Dr. Garima Pulliam WBC 14.4 103/ul Critically high 4.0-11.0 [facility] Comment on above: Performed By: #### C BC ####[facility] [address]fi[address]kv[address] [place] [address]Dr. Garima Pulliam [facility] SARS-CoV-2 (COVID-19) RNA MARIE+probe Ql (Unsp spec) Not detected Normal NOT DETECTED [facility] Comment on above: Result Comment: When [...] for this test is supported by the Marketing Pr Intern of Health and Human Service's declaration that [...] Performed By: #### C VDTBH ####[facility] [address]fr[address]bf[address] [place] [address]Dr. Garima Pulliam LACTATE/LACTIC ACIDon 2021 Lactate [Moles/Vol] 1.0 mmol/L Normal 0.4-1.9 [facility] Comment on above: Performed By: #### L ACT ####[facility] Luwlyxfurl[address] [place] [address]Dr. Garima Pulliam PROF CHEM 8 (BAS METB)on Anion gap [Moles/Vol] 11.6 mmol/L Normal [facility] Comment on above: Performed By: #### B MP, CMADM ####[facility] R[address]pf[address]jmux[address] [place] [address]Dr. Garima Pulliam Calcium [Mass/Vol] 9.2 mg/dL Normal 8.5-10.1 [facility] Comment on above: Performed By: #### B MP, CMADM ####[facility] [address]wz[address]epbug[address] [place] [address]Dr. Garima Pulliam Chloride [Moles/Vol] 105 mmol/L Normal 98-107 [facility] Comment on above: Performed By: #### B DAVID, CMADM ####[facility] Pxxmgzsufy7[address] [place] [address]Dr. Garima Pulliam CO2 [Moles/Vol] 25.9 mmol/L Normal 21.0-32.0 [facility] Comment on above: Performed By: #### B DAVID, CMADM ####[facility] [address]ziqqj[address] [place] [address]Dr. Garima Pulliam Creatinine [Mass/Vol] 0.72 mg/dL Normal 0.70-1.30 [facility] Comment on above: Performed By: #### B DAVID, CMADM ####[facility] [address]znb[address]mtd[address] [place] [address]Dr. Garima Pulliam EGFR-AF MOZAMBICAN >60 Normal >=60 [facility] Comment on above: Performed By: #### B DAVID, CMADM ####[facility] [address]hmhabzrmf35[address] [place] [address]Dr. Garima Pulliam EGFR-NON AF MOZAMBICAN >60 Normal >=60 [facility] Comment on above: Performed By: #### B DAVID, CMADM ####[facility] Txwipcskbb8418 [place] [address]Dr. Garima Pulliam Glucose [Mass/Vol] 111 mg/dL Critically high 74-106 [facility] Comment on above: Performed By: #### B DAVID, CMADM ####[facility] [address]yr[address]rkxz[address] [place] [address]Dr. Garima Pulliam Potassium [Moles/Vol] 3.5 mmol/L Normal 3.5-5.1 [facility] Comment on above: Performed By: #### B DAVID, CMADM ####[facility] [address]rov[address]kh[address] [place] [address]Dr. Garima Pulliam Sodium [Moles/Vol] 139 mmol/L Normal 136-145 [facility] Comment on above: Performed By: #### B DAVID, CMADM ####[facility] Ofmusyyrgw[address] [place] [address]Dr. Garima Pulliam Urea nitrogen [Mass/Vol] 7.0 mg/dL Normal 7.0-18.0 [facility] Comment on above: Performed By: #### B NANCY HERNANDEZ ####[facility] [address] [place], [place] [address]Kd. Garima Heraclio Urea nitrogen/Creatinine [Mass ratio] 9.7 mg/mg Normal [facility] Comment on above: Performed By: #### B DAVID, NANCY ####[facility] [address] [place], [place] [address]Jy. Garima Pulliam XR CHEST 1 Von 09-12-2022 XR CHEST 1 V Normal [facility] Encounters Encounter Date Encounter Type Care [...] Facility:[facility]1 Payers Date Payer Category Payer Unknown [id number] 1960 Medicaid [id number] 1960 Unknown [id number] 1960 Unknown [id number] 1954 Unknown [id number] 2.16.84 0.1.719477.3.579.2.593 1954 Unknown [id number] 2.16.84 0.1.634859.3.579.2.593 1954 Unknown [id number] 2.16.84 0.1.614526.3.579.2.593 1954 Unknown [id number] 2.16.84 0.1.147541.3.579.2.593 1954 Unknown [id number] 2.16.84 0.1.568795.3.579.2.593 1954 Unknown [id number] 2.16.84 0.1.684232.3.579.2.593 1954 Unknown [id number] 2.16.84 0.1.834996.3.579.2.593 1954 Unknown [id number] 2.16.84 0.1.634681.3.579.2.593 1954 Unknown [id number] 2.16.84 0.1.107265.3.579.2.593 1954 Unknown [id number] 2.16.84 0.1.652664.3.579.2.593 1954 Unknown [id number] 2.16.84 0.1.720838.3.579.2.593 1954 Unknown [id number] 2.16.84 0.1.775562.3.579.2.593 1954 Unknown [id number] 2.16.84 0.1.476137.3.579.2.593 1954 Unknown [id number] 2.16.84 0.1.016711.3.579.2.593 1954 Unknown [id number] 2.16.84 0.1.339275.3.579.2.593 1954 Unknown [id number] 2.16.84 0.1.053710.3.579.2.593 1954 Unknown [id number] 2.16.84 0.1.620072.3.579.2.593 1954 Unknown [id number] 2.16.84 0.1.171321.3.579.2.593 1954 Unknown [id number] 2.16.84 0.1.363673.3.579.2.593 1954 Unknown [id number] 2.16.84 0.1.942335.3.579.2.593 Summary Purpose Family History No Family History Records Found Advance Directives No Advanced Directives Records Found Additional Source Comments (unrecognized sect ion and content) No Status Records Found INFORMATION SOURCE (unrecogn ized section and content) DATE CREATED AUTHOR 04/08/2023 [facility] FOR RECORDS PERTAINING TO PATIENTS [...] BE BASED ON THE PRIMARY CLINICAL RECORDS. [facility]. provides no warranty or guarantee of the accuracy or completeness of information in this document.
--- NOTE | 2024-01-21 23:18 | ECG_ITS ---
[facility] Test Date: 2024-01-21 Pat Name: CONSTANZA BARRETO Department: Room: - Gender: Male Forensic Identification Specialist: : [id number] Requested By: [id number] Order Number: [id number] Reading MD: CARLNY LITTLE Measurements Intervals Hanna Rate: 88 P: 79 VA: 196 QRS: 45 QRSD: 102 T: 49 QT: 372 QTc: 417 Interpretive Statements [address] depression present but unchanged from tracing of 01/05/24 9110 normal ECG Electronically Signed On 01-22-2024 6:50:36 EST by CARLYN LITTLE
--- NOTE | 2024-01-21 23:20 | ED.SOB1 ---
HPI - SOB/Dyspnea General Chief Complaint: Shortness of Breath/Dyspnea Stated Complaint: SOB Time Seen by Provider: 01/21/24 23:11 Source: patient Mode of arrival: Wheelchair History of Present Illness HPI Narrative: This 68-year-old male with a history of chronic obstructive pulmonary disease who continues to smoke approximately 1-1-1/2 packs of cigarettes a day presents for evaluation of increasing shortness of breath over the course of the past several days. He has had some mild left upper chest pain. He denies any fever. He has a dry cough. He denies any dizziness or syncope. He has had some mild nausea but no vomiting. He has chronic lower extremity swelling and redness that he states is unchanged. He denies that he has a family physician and instead comes to the emergency department when he feels like he is getting sick. MD elicited complaint: shortness of breath and cough Pertinent past history: COPD Related Data Home Medications Medication Instructions Recorded Confirmed omeprazole 20 mg capsule,delayed 20 mg PO DAILY 10/22/23 12/25/23 release albuterol sulfate 2.5 mg/3 mL 2.5 mg inhalation Q6H PRN 11/02/23 12/26/23 (0.083 %) solution for nebulization shortness of breath or wheezing fluticasone 250 mcg-salmeterol 50 1 inh inhalation BID 12/25/23 12/25/23 mcg/dose blistr powdr for inhalation (Wixela Inhub) tiotropium bromide 2.5 2 inh inhalation BID 12/25/23 12/25/23 mcg/actuation mist for inhalation (Spiriva Respimat) Previous Rx's Medication Instructions Recorded albuterol sulfate 90 mcg/actuation 2 inh inhalation Q6H PRN shortness 12/17/23 aerosol inhaler of breath or wheezing #8.5 grams cefdinir 300 mg capsule 600 mg (2 x 300 mg) PO DAILY #20 12/27/23 caps losartan 100 mg tablet 100 mg PO DAILY #30 tabs 12/27/23 prednisone 10 mg tablet 50 mg (5 x 10 mg) PO DAILY #47 tabs 12/27/23 methylprednisolone 4 mg tablets in See Rx Instructions .Route 01/05/24 a dose pack (Medrol (Luis)) .COMPLEX #21 ea Allergies Allergy/AdvReac Type Severity Reaction Status Date / Time No Known Drug Allergies Allergy Verified 01/21/24 23:05 Review of Systems ROS Status of ROS 10 or more systems reviewed and unremarkable except as noted in history and below [facility] Medical History (Updated 01/22/24 @ 01:34 by Teresa Ag MD) Community acquired pneumonia ?J18.9 - Pneumonia, unspecified organism (ICD-10) Chronic obstructive pulmonary disease ?J44.9 - Chronic obstructive pulmonary disease, unspecified (ICD-10) Acute exacerbation of chronic obstructive pulmonary disease (COPD) ?J44.1 - Chronic obstructive pulmonary disease with (acute) exacerbation (ICD-10) RLL pneumonia ?J18.9 - Pneumonia, unspecified organism (ICD-10) COPD (chronic obstructive pulmonary disease) ?J44.9 - Chronic obstructive pulmonary disease, unspecified (ICD-10) Family History (Updated 12/25/23 @ 21:28 by Kym Ordaz) Mother Family history of cancer Family history of hypertension Father Family history of cancer Social History Within the past year, how often did you have a drink containing alcohol: 4 or more times a week Within the past year, how many standard drinks containing alcohol did you have on a typical day: 3 or 4 Within the past year, how often did you have six or more drinks on one occasion: less than monthly Total score: 3 Score interpretation: A score of 4 or more indicates drinking is likely to affect patient's safety. Smoking status: Current every day smoker Non-prescribed substance use: cannabis (any form) Previous occupational history: retired Highest level of school completed/degree received: high school graduate Are you now , , , , never or living with a partner: In a typical week, how many times do you talk on the telephone with family, friends, or neighbors: twice per week How often do you get together with friends or relatives: once per week How often do you attend moravian or tenriism services: never Do you belong to any clubs or organizations such as moravian groups unions, fraternal or athletic groups, or school groups: no Total score: 1 Score interpretation: A score of less than or equal to 1 indicates the most socially isolated. Little interest or pleasure in doing things: several days Feeling down, depressed, or hopeless: not at all Feel stressed/tense/nervous/anxious/difficulty sleeping: not at all Do you think of yourself as: straight/heterosexual Gender Identity: male Exam Narrative Exam Narrative: Nurses note and vital signs reviewed; He has an elevated blood pressure 187/103, normal pulse, he is afebrile, he has mild hypoxic with pulse ox of 93 percent on room air General: Nontoxic male, he is sitting in a chair, he speaks in complete sentences, no andrew respiratory distress Skin: Warm, dry, no pallor noted. There is no rash noted. Tobacco stained fingers. Head: Normocephalic, atraumatic Eye: Normal conjunctiva, no drainage, EOMI. PERRL. No scleral icterus. Ears, Nose, Mouth, and Throat: oral mucosa is moist. Cardiovascular: Regular Rate and Rhythm S1S2, pulses are brisk and equal bilaterally Respiratory: Patient is in no distress, diffusely diminished breath sounds with occasional expiratory wheezing, no accessory muscle use, patient is speaking in complete sentences without conversational dyspnea Back: non-tender, no CVA tenderness bilaterally to percussion. GI: Normal bowel sounds, no tenderness to palpation, no masses appreciated. No rebound, guarding, or rigidity noted. Musculoskeletal: 2+ pitting edema to bilateral lower legs, calf muscles are non-tender Neurological: A&O x4, normal speech Psychiatric: Cooperative Constitutional Vital Signs, click to edit/add: Last Vital Signs Temp 98.8 F 01/21/24 23:05 Pulse 76 01/22/24 00:40 Resp 21 01/22/24 00:40 BP 195/99 H 01/22/24 00:48 Pulse Ox 94 L 01/22/24 00:40 O2 Del Method Room Air 01/21/24 23:45 Course Vital Signs Vital signs: Vital Signs Temperature 98.8 F 01/21/24 23:05 Pulse Rate 89 01/21/24 23:05 Respiratory Rate 20 01/21/24 23:05 Blood Pressure 187/103 H 01/21/24 23:05 Pulse Oximetry 93 L 01/21/24 23:05 Oxygen Delivery Method Room Air 01/21/24 23:05 Temperature 98.8 F 01/21/24 23:05 Pulse Rate 76 01/22/24 00:40 Respiratory Rate 21 01/22/24 00:40 Blood Pressure 195/99 H 01/22/24 00:48 Pulse Oximetry 94 L 01/22/24 00:40 Oxygen Delivery Method Room Air 01/21/24 23:45 MDM - SOB/Dyspnea MDM Narrative Medical decision making narrative: This 68-year-old male with a history of chronic obstructive pulmonary disease who continues to smoke one to one and a half packs of cigarettes a day presents for evaluation of increasing shortness of breath over the past several days. He has had some intermittent chest pain. He denies any dizziness diaphoresis or syncope. He has no abdominal pain but admits that he did have some nausea earlier in the day. He does have chronic lower extremity swelling. He states this is unchanged. The patient's vital signs were stable with exception of elevated blood pressure and mild hypoxia. He admits that he has not taken his blood pressure medications tonight.His lungs were diffusely diminished with occasional expiratory wheezing. No rhonchi rales are appreciated. He was speaking in complete sentences without conversational dyspnea. EKG is normal sinus rhythm at 80bpm with no acute changes. Chest x-ray is negative for acute findings. He was medicated in the emergency department with IV Solu-Medrol, 2 g of magnesium and a DuoNeb treatment. Reevaluation he states he is feeling better and has improved lung sounds. He is anxious to be discharged home and states that he has the inhalers that he needs but is agreeable to a prescription for a medrol dose pack and zithromax z pack. He was encouraged to stop smoking but does not wish to entertain this conversation at this time. Differential Diagnosis Differential diagnosis: Likely acute exacerbation of chronic obstructive airways disease, congestive heart failure and community acquired pneumonia Medical Records Medical records narrative: The [address] [address] XRay Report Signed Patient: CONSTANZA BARRETO MR#: [id number] : 1955 Acct:[id number] Age/Sex: 68 / M ADM Date: 01/21/24 Loc: ER Attending Dr: Ordering Physician: Teresa Ag Date of Service: 01/22/24 Procedure(s): XR chest 2V Accession Number(s): [id number] cc: Teresa Ag; Physician,Non-Staff M.DAdalberto~ The [address] [address] Patient Name: CONSTANZA BARRETO MRN: [id number] date: 1955 Sex: M Assigned Patient Location: ER Current Patient Location: ER Accession/Order Number: [id number] Exam Date: 01/22/2024 00:56 Report Date: 01/22/2024 01:11 At the request of: TERESA MARKER Procedure: XR chest 2V XR chest 2V 01/21/2024 11:56 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 Shortness of breath. Comparison: 10/15/2023 Technique: 2 view chest Findings: The cardiomediastinal silhouette is normal. The lungs are hyperexpanded with background chronic fibrotic changes. There is chronic opacification in the inferior segment of the right lower lobe, likely reflecting chronic parenchymal changes. Otherwise, the lungs are clear without infiltrate, effusion, or pneumothorax. The bones are intact. There are old, healed left lateral and posterior rib fractures. XR/XR chest 2V Impression: No acute cardiopulmonary process or significant interval change. Electronically authenticated by: GIO CHRISTIANSON Date: 01/22/2024 01:11 Lab Data Labs: Lab Results 01/21/24 Range/Units 23:28 WBC 8.9 (4.0-11.0) 10^3/uL RBC 4.87 (4.70-6.10) 10^6/uL Hgb 14.7 (14.0-18.0) g/dL Hct 44.9 (42.0-54.0) % MCV 92.2 (80.0-94.0) fL MCH 30.2 (25.9-34.0) pg MCHC 32.7 (29.9-35.2) g/dL RDW 13.9 (11.0-15.0) % Plt Count 206 (150-450) 10^3/uL MPV 8.8 L (9.5-13.5) fL Neut % (Auto) 65.6 (43.0-75.0) % Lymph % (Auto) 22.3 (20.5-60.0) % [place] % (Auto) 9.4 (1.7-12.0) % Eos % (Auto) 2.2 (0.9-7.0) % Baso % (Auto) 0.2 (0.2-2.0) % Neut # (Auto) 5.8 (1.4-6.5) 10^3/uL Lymph # (Auto) 2.0 (1.2-3.8) 10^3/uL [place] # (Auto) 0.8 (0.3-0.8) 10^3/uL Eos # (Auto) 0.2 (0.0-0.7) 10^3/uL Baso # (Auto) 0.0 (0.0-0.1) 10^3/uL Abs Immat Gran (auto) 0.03 (0.00-0.03) 10^3/uL Imm/Tot Granulo (auto) 0.3 (0.0-0.5) % Sodium 141 (136-145) mmol/L Potassium 3.3 L (3.5-5.1) mmol/L Chloride 103 (98-107) mmol/L Carbon Dioxide 32.5 H (21.0-32.0) mmol/L Anion Gap 8.8 BUN 7.0 (7.0-18.0) mg/dL Creatinine 0.72 (0.70-1.30) mg/dL Est GFR ( Amer) >60 (>=60) Est GFR (Non-Af Amer) >60 (>=60) BUN/Creatinine Ratio 9.7 Glucose 161 H (74-106) mg/dL Lactate 1.2 (0.4-2.0) mmol/L Calcium 9.4 (8.5-10.1) mg/dL Total Bilirubin 0.5 (0.2-1.0) mg/dL AST 24 (15-37) U/L ALT 40 (16-63) U/L Alkaline Phosphatase 81 (46-116) U/L Troponin I High Sens 19.8 (4.0-76.1) pg/mL NT-Pro-B Natriuret Pep 359.0 (<=900.0) pg/mL Total Protein 6.6 (6.4-8.2) g/dL Albumin 3.7 (3.4-5.0) g/dL Globulin 2.9 g/dL Albumin/Globulin Ratio 1.3 ECG Data Attestation: I personally reviewed and interpreted this ECG as follows: (Sinus rhythm at 80 beats for minute, normal axis, normal intervals, no acute ST segment elevation or T-wave inversion) Smoking Cessation Time spent discussing smoking cessation with patient: 3 to 10 minutes Patient Acknowledges Need for Cessation: No Discharge Plan Discharge Chief Complaint: Shortness of Breath/Dyspnea Clinical Impression: Tobacco abuse, COPD exacerbation Patient Disposition: Home, Self-Care Time of Disposition Decision: 01:33 Condition: Good Prescriptions / Home Meds: No Action omeprazole 20 mg capsule,delayed release(DR/EC) 20 mg PO DAILY albuterol sulfate 2.5 mg /3 mL (0.083 %) solution for nebulization 2.5 mg inhalation Q6H PRN (Reason: shortness of breath or wheezing) Spiriva Respimat 2.5 mcg/actuation mist 2 inh inhalation BID fluticasone propion-salmeterol [Wixela Inhub] 250-50 mcg/dose blister with device 1 inh inhalation BID prednisone 10 mg tablet 50 mg PO DAILY Qty: 47 0RF Rx Instructions: 5/day for 3 days. 4/day for 3 days, 3/day for 3 days, 2/day for 3 days, 1/day for 3 days, 1/2 /day for 4 days losartan 100 mg tablet 100 mg PO DAILY Qty: 30 11RF cefdinir 300 mg capsule 600 mg PO DAILY Qty: 20 0RF methylprednisolone [Medrol (Luis)] 4 mg tablets,dose pack See Rx Instructions .ROUTE .COMPLEX Qty: 21 0RF Rx Instructions: Taper as directed albuterol sulfate 90 mcg/actuation HFA aerosol inhaler 2 inh inhalation Q6H PRN (Reason: shortness of breath or wheezing) Qty: 8.5 2RF Instructions: How to Stop Smoking (ED), COPD (Chronic Obstructive Pulmonary Disease) (ED) Referrals: Iker Meza DO [Physician] - 1 week Physician,Non-Staff, [Primary Care Provider] - 1 week Shaikh Anthony MD [Physician] - 1 week Stand Alone Forms: Portal Instructions
[2024-01-21 23:35] LABS: Basophils Percent Auto 0.2 % (0.2-2.0); Eosinophils Absolute Auto 0.2 10^3/uL (0.0-0.7); Eosinophils Percent Auto 2.2 % (0.9-7.0); Hematocrit 44.9 % (42.0-54.0); Hemoglobin 14.7 g/dL (14.0-18.0); Immature Granulocytes Abs Auto 0.03 10^3/uL (0.00-0.03); Immature Granulocytes Pct Auto 0.3 % (0.0-0.5); Lymphocytes Percent Auto 22.3 % (20.5-60.0); Mean Corpuscular HGB Conc 32.7 g/dL (29.9-35.2); Mean Corpuscular Hemoglobin 30.2 pg (25.9-34.0); Mean Corpuscular Volume 92.2 fL (80.0-94.0); Mean Platelet Volume 8.8 fL (9.5-13.5); Monocytes Absolute Auto 0.8 10^3/uL (0.3-0.8); Monocytes Percent Auto 9.4 % (1.7-12.0); Neutrophils Absolute Auto 5.8 10^3/uL (1.4-6.5); Neutrophils Percent Auto 65.6 % (43.0-75.0); Platelet Count 206 10^3/uL (150-450); Red Blood Count 4.87 10^6/uL (4.70-6.10); Red Cell Distribution Width 13.9 % (11.0-15.0); White Blood Count 8.9 10^3/uL (4.0-11.0)
[2024-01-21 23:36] VITALS: PULSE 81; RESP 20; O2SAT 94
[2024-01-21] MEDS: IPRATROPIUM/ALBUTEROL SULFATE 3 ML AMPUL.NEB IH (23:36)
[2024-01-21] MEDS: MAGNESIUM SULFATE IN WATER 2 GM/50 ML PREMIX IV (23:44)
[2024-01-21 23:45] VITALS: PULSE 84; RESP 23; O2SAT 99
[2024-01-21] MEDS: METHYLPREDNISOLONE SOD SUCC PF 125 MG/2 ML VIAL IVP (23:45)
[2024-01-21 23:51] LABS: Alanine Aminotransferase 40 U/L (16-63); Albumin Globulin Ratio 1.3; Albumin Level 3.7 g/dL (3.4-5.0); Alkaline Phosphatase 81 U/L (46-116); Anion Gap 8.8; Aspartate Amino Transferase 24 U/L (15-37); BUN Creatinine Ratio 9.7; Bilirubin Total 0.5 mg/dL (0.2-1.0); Calcium 9.4 mg/dL (8.5-10.1); Carbon Dioxide 32.5 mmol/L (21.0-32.0); Chloride 103 mmol/L (98-107); Estimated GFR (African America >60 (>=60); Estimated GFR (Non-African Ame >60 (>=60); Globulin 2.9 g/dL; Glucose 161 mg/dL (74-106); Potassium 3.3 mmol/L (3.5-5.1); Sodium 141 mmol/L (136-145); Total Protein 6.6 g/dL (6.4-8.2)
[2024-01-21 23:53] LABS: Lactate/Lactic Acid 1.2 mmol/L (0.4-2.0)
[2024-01-21 23:57] LABS: Troponin I High Sensitivity 19.8 pg/mL (4.0-76.1)
[2024-01-22 00:20] VITALS: PULSE 72; RESP 21; O2SAT 91
[2024-01-22 00:30] VITALS: PULSE 75; RESP 23; O2SAT 96
[2024-01-22 00:40] VITALS: PULSE 76; RESP 21; O2SAT 94
--- NOTE | 2024-01-22 00:47 | XR_ITS ---
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 Shortness of breath. Comparison: 10/15/2023 Technique: 2 view chest Findings: The cardiomediastinal silhouette is normal. The lungs are hyperexpanded with background chronic fibrotic changes. There is chronic opacification in the inferior segment of the right lower lobe, likely reflecting chronic parenchymal changes. Otherwise, the lungs are clear without infiltrate, effusion, or pneumothorax. The bones are intact. There are old, healed left lateral and posterior rib fractures. XR/XR chest 2V Impression: No acute cardiopulmonary process or significant interval change. Electronically authenticated by: GIO CHRISTIANSON Date: 01/22/2024 01:11
[2024-01-22 00:48] VITALS: BP 195/99
[2024-01-22 01:48] VITALS: PULSE 82; RESP 20; O2SAT 93
== END 2024-01-22 01:52 | disposition home or self-care (01) ==
PROVIDERS: Emergency Provider Emergency Medicine
DX: J44.1 Chronic obstructive pulmonary disease with (acute) exacerbation (principal); F17.210 Nicotine dependence, cigarettes, uncomplicated; Z87.01 Personal history of pneumonia (recurrent); Z99.81 Dependence on supplemental oxygen
CPT/HCPCS: 36415; 71046; 80053; 83605; 83880; 84484; 85025; 93005; 94640; 96374; 96375; 99285; J2930

== ENCOUNTER 2024-01-27 21:54 | Emergency (ER) | payer MEDICARE, SELFPAY ==
[2024-01-27 21:57] VITALS: BP 178/99; PULSE 88; RESP 20; TEMP 36.5; O2SAT 94; BMI 25.0
--- OUTSIDE RECORDS SUMMARY | 2024-01-27 22:00 | XMS_ITS | CCD ---
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 Garima Pulliam Basophils/100 WBC (Bld) 0.3 % Normal 0.2-2.0 [facility] Comment on above: Performed By: #### C BC ####[facility] [address] [place], [place] [address]WqAdalberto Pulliam EO # 0.3 103/ul Normal 0.0-0.7 [facility] Comment on above: Performed By: #### C BC ####[facility] [address] [place] [id number]. Garima Pulliam Eosinophils/100 WBC (Bld) 2.8 % Normal 0.9-7.0 [facility] Comment on above: Performed By: #### C BC ####[facility] [address]xr[address] [place] [address]Dr. Garima Pulliam Erythrocyte distribution width (RBC) [Ratio] 13.4 % Normal 11.0-15.0 [facility] Comment on above: Performed By: #### C BC ####[facility] Mey[address] [place], [place] [address]Dr. Garima Pulliam Hematocrit (Bld) [Volume fraction] 45.7 % Normal 42.0-54.0 [facility] Comment on above: Performed By: #### C BC ####[facility] Xmemuyneew[address] [place], [place] [address]Dr. Garima Pulliam Hemoglobin (Bld) [Mass/Vol] 15.2 g/dL Normal 14.0-18.0 [facility] Comment on above: Performed By: #### C BC ####[facility] Yrqkj[address]xc[address] [place], [place] [address]Dr. Garima Pulliam IG # 0.02 10e3/ul Normal 0.00-0.03 [facility] Comment on above: Performed By: #### C BC ####[facility] Dgjaitjnmt[address] [place], [place] [address]Dr. Garima Pulliam IG % 0.2 % Normal 0.0-0.5 [facility] Comment on above: Performed By: #### C BC ####[facility] Szcghaolva[address] [place], [place] [address]Dr. Garima Pulliam LYMPH # 2.1 103/ul Normal 1.2-3.8 [facility] Comment on above: Performed By: #### C BC ####[facility] Jeangyzwfd[address] [place], [place] [address]Dr. Garima Pulliam Lymphocytes/100 WBC (Bld) 23.7 % Normal 20.5-60.0 [facility] Comment on above: Performed By: #### C BC ####[facility] [address]vinm[address] [place] [phone]. Garima Pulliam MANUAL DIFF REQ NO Normal [facility] Comment on above: Performed By: #### C BC ####[facility] Ehictrblld4959 [place] [phone]. Garima Pulliam MCH (RBC) [Entitic mass] 30.4 pg Normal 25.9-34.0 [facility] Comment on above: Performed By: #### C BC ####[facility] Tacj[address]tt[address] [place], [place] [id number]. Garima Pulliam MCHC (RBC) [Mass/Vol] 33.3 g/dL Normal 29.9-35.2 [facility] Comment on above: Performed By: #### C BC ####[facility] Kuabyeuivo[address] [place], [place] [address]Dr. Garima Pulliam MCV (RBC) [Entitic vol] 91.4 fL Normal 80.0-94.0 [facility] Comment on above: Performed By: #### C BC ####[facility] Huovxphbic[address] [place], [place] [address]Dr. Garima Pulliam MONO # 0.7 103/ul Normal 0.3-0.8 [facility] Comment on above: Performed By: #### C BC ####[facility] Flvscjezri[address] [place], [place] [address]Dr. Chapisrenu Pulliam Monocytes/100 WBC (Bld) 8.3 % Normal 1.7-12.0 [facility] Comment on above: Performed By: #### C BC ####[facility] R[address] [place], [place] [address]Dr. Garima Pulliam NEUT # 5.8 103/ul Normal 1.4-6.5 [facility] Comment on above: Performed By: #### C BC ####[facility] Wtmnc[address]wb[address] [place], [place] [address]Dr. Garima Pulliam Neutrophils/100 WBC (Bld) 64.7 % Normal 43.0-75.0 [facility] Comment on above: Performed By: #### C BC ####[facility] G[address]ag[address] [place] [phone]. Garima Pulliam Platelet mean volume (Bld) [Entitic vol] 8.6 fL Critically low 9.5-13.5 [facility] Comment on above: Performed By: #### C BC ####[facility] [address]bm[address]jvtxu[address] [place] [address]Dr. Garima Pulliam PLT 230 103/ul Normal 150-450 [facility] Comment on above: Performed By: #### C BC ####[facility] Ixhqhntizj[address] [place] [address]Dr. Garima Pulliam RBC 5.00 106/ul Normal 4.70-6.10 [facility] Comment on above: Performed By: #### C BC ####[facility] E[address]oz[address]wk[address] [place] [address]Dr. Garima Pulliam WBC 9.0 103/ul Normal 4.0-11.0 [facility] Comment on above: Performed By: #### C BC ####[facility] R[address]vb[address] [place], [place] [address]Dr. Garima Pulliam MAGNESIUMon 04-04-2023 Magnesium [Mass/Vol] 1.8 mg/dL Normal 1.8-2.4 [facility] Comment on above: Performed By: #### M G ####[facility] Eec[address]ivvfgs[address] [place], [place] [address]Dr. Garima Pulliam PROF 14(COMP METB)on 023 Albumin [Mass/Vol] 3.8 g/dL Normal 3.4-5.0 [facility] Comment on above: Performed By: #### C MP ####[facility] Jayioevqzf[address] [place], [place] [address]Dr. Garima Pulliam Albumin/Globulin [Mass ratio] 1.2 {ratio} Normal [facility] Comment on above: Performed By: #### C MP ####[facility] [address] [place] [address]Dr. Garima Pulliam ALP [Catalytic activity/Vol] 84 U/L Normal 46-116 [facility] Comment on above: Performed By: #### C MP ####[facility] [address]ypq[address] [place] [phone]. Garima Pulliam ALT [Catalytic activity/Vol] 31 U/L Normal 16-63 [facility] Comment on above: Performed By: #### C MP ####[facility] Jrmphrffli40[address] [place] [phone]. Garima Pulliam Anion gap [Moles/Vol] 12.2 mmol/L Normal [facility] Comment on above: Performed By: #### C MP ####[facility] Wszrfqjngr3275 [place] [phone]. Garima Pulliam AST [Catalytic activity/Vol] 23 U/L Normal 15-37 [facility] Comment on above: Performed By: #### C MP ####[facility] V[address] [place], [place] [address]Dr. Garima Pulliam Bilirubin [Mass/Vol] 0.5 mg/dL Normal 0.2-1.0 [facility] Comment on above: Performed By: #### C MP ####[facility] S[address]thxezff[address] [place], [place] [address]Dr. Garima Pulliam Calcium [Mass/Vol] 9.2 mg/dL Normal 8.5-10.1 [facility] Comment on above: Performed By: #### C MP ####[facility] J[address]keyfmx[address] [place], [place] [address]Dr. Garima Pulliam Chloride [Moles/Vol] 103 mmol/L Normal 98-107 [facility] Comment on above: Performed By: #### C MP ####[facility] [address] [place], [place] [address]Dr. Garima Pulliam CO2 [Moles/Vol] 28.5 mmol/L Normal 21.0-32.0 [facility] Comment on above: Performed By: #### C MP ####[facility] [address] [place], [place] [address]Dr. Garima Pulliam Creatinine [Mass/Vol] 0.74 mg/dL Normal 0.70-1.30 [facility] Comment on above: Performed By: #### C MP ####[facility] [address]rxp[address] [place] [phone]. Garima Pulliam EGFR-AF [place]IZ[place] >60 Normal >=60 [facility] Comment on above: Performed By: #### C MP ####[facility] [address]euix[address] [place] [phone]. Garima Pulliam EGFR-NON AF CITIZEN OF [place] >60 Normal >=60 [facility] Comment on above: Performed By: #### C MP ####[facility] [address] [place] [address]Dr. Garima Pulliam Globulin (S) [Mass/Vol] 3.1 g/dL Normal [facility] Comment on above: Performed By: #### C MP ####[facility] [address] [place] [address]Dr. Garima Pulliam Glucose [Mass/Vol] 93 mg/dL Normal 74-106 [facility] [place] [facility] Comment on above: Performed By: #### C MP ####[facility] K[address]uzij[address] [place] [address]Dr. Garima Pulliam Potassium [Moles/Vol] 3.7 mmol/L Normal 3.5-5.1 [facility] Comment on above: Performed By: #### C MP ####[facility] [address]uz[address] [place] [address]Dr. Garima Pulliam Protein [Mass/Vol] 6.9 g/dL Normal 6.4-8.2 [facility] [place] [facility] Comment on above: Performed By: #### C MP ####[facility] Rumbbyckjp[address] [place] [address]Dr. Garima Pulliam Sodium [Moles/Vol] 140 mmol/L Normal 136-145 [facility] [place] [facility] Comment on above: Performed By: #### C MP ####[facility] F[address]up[address] [place] [address]Dr. Garima Pulliam Urea nitrogen [Mass/Vol] 8.0 mg/dL Normal 7.0-18.0 [facility] Comment on above: Performed By: #### C MP ####[facility] [address] [place] [address]Dr. Garima Pulliam Urea nitrogen/Creatinine [Mass ratio] 10.8 mg/mg Normal [facility] Comment on above: Performed By: #### C MP ####[facility] [address]ievhv[address] [place] [address]Dr. Garima Pulliam AMMONIAon 03-30-2023 Ammonia (P) [Moles/Vol] 11 umol/L Normal 11-32 [facility] Comment on above: Performed By: #### A MM ####[facility] L[address]cgpiuxt[address] [place], [place] [address]Dr. Chapisrenu Pulliam CARDIAC NASH ADMITon 023 CK [Catalytic activity/Vol] 232 U/L Normal 39-308 [facility] Comment on above: Performed By: #### C DAVID, CMADM ####[facility] Vrekabwzyr[address] [place], [place] [address]Dr. Chapisrenu Pulliam CK.MB [Mass/Vol] 4.83 ng/mL Critically high <=3.60 [facility] Comment on above: Performed By: #### C DAVID, CMADM ####[facility] Johdyftbfp[address] [place], [place] [address]Dr. Garima Pulliam HSTROP 10.5 pg/mL Normal 4.0-76.1 [facility] Comment on above: Result Comment: CUT- OFF POINTS HAVE BEEN ESTABLISHED BASED ON THE FOURTH UNIVERSAL DEFINITIONS OF MYOCARDIALINFARCTION. THE UPPER REFERENCE LIMIT (URL) OF TROPONIN, DEFINED THE 99TH PERCENTILE OFcTnI DISTRIBUTION IN A REFERENCE POPULATION, HAS BEEN CONFIRMED THE DECISION THRESHOLDFOR WI DIAGNOSIS. Performed By: #### C DAVID, CMADM ####[facility] [address]wf[address] [place] [address]Dr. Chapisrenu Pulliam DORIS 79 ng/mL Normal 16-96 [facility] Comment on above: Performed By: #### C DAVID, CMADM ####[facility] Keqndmyjch[address] [place], [place] [address]Dr. Chapisrenu Pulliam CBC AUTO DIFFon 03-30-2023 BASO # 0.0 103/ul Normal 0.0-0.1 [facility] Comment on above: Performed By: #### C BC ####[facility] Legwaltifc1561 [place] [phone]. Garima Pulliam Basophils/100 WBC (Bld) 0.1 % Critically low 0.2-2.0 [facility] Comment on above: Performed By: #### C BC ####[facility] Xdguiurgcw[address] [place], [place] [address]Dr. Garima Pulliam EO # 0.3 103/ul Normal 0.0-0.7 [facility] Comment on above: Performed By: #### C BC ####[facility] Nqqmtpsqzn[address] [place], [place] [address]Dr. Garima Pulliam Eosinophils/100 WBC (Bld) 3.3 % Normal 0.9-7.0 [facility] Comment on above: Performed By: #### C BC ####[facility] [address]yrz[address]slqb[address] [place], [place] [address]Dr. Garima Pulliam Erythrocyte distribution width (RBC) [Ratio] 13.5 % Normal 11.0-15.0 [facility] Comment on above: Performed By: #### C BC ####[facility] Jovtutebgn[address] [place], [place] [address]Dr. Garima Pulliam Hematocrit (Bld) [Volume fraction] 42.9 % Normal 42.0-54.0 [facility] Comment on above: Performed By: #### C BC ####[facility] [address]nimwozoeb[address] [place], [place] [address]Dr. Garima Pulliam Hemoglobin (Bld) [Mass/Vol] 13.9 g/dL Critically low 14.0-18.0 [facility] Comment on above: Performed By: #### C BC ####[facility] W[address]omz[address] [place], [place] [address]Dr. Garima Pulliam IG # 0.01 10e3/ul Normal 0.00-0.03 [facility] Comment on above: Performed By: #### C BC ####[facility] [address] [place], [place] [address]Dr. Garima Pulliam IG % 0.1 % Normal 0.0-0.5 [facility] Comment on above: Performed By: #### C BC ####[facility] [address]hgaw[address] [place] [phone]. Garima Pulliam LYMPH # 1.7 103/ul Normal 1.2-3.8 [facility] Comment on above: Performed By: #### C BC ####[facility] Xesbzfrwyq8475 [place] [phone]. Garima Pulliam Lymphocytes/100 WBC (Bld) 22.8 % Normal 20.5-60.0 [facility] Comment on above: Performed By: #### C BC ####[facility] [address]iof[address] [place] [phone]. Garima Pulliam MANUAL DIFF REQ NO Normal [facility] Comment on above: Performed By: #### C BC ####[facility] Ekhbpcxefb2587 [place] [phone]. Garima Pulliam MCH (RBC) [Entitic mass] 30.5 pg Normal 25.9-34.0 [facility] Comment on above: Performed By: #### C BC ####[facility] Jorzchlxzz5[address] [place] [phone]. Garima Pulliam MCHC (RBC) [Mass/Vol] 32.4 g/dL Normal 29.9-35.2 [facility] Comment on above: Performed By: #### C BC ####[facility] Wmcdykywky[address] [place] [phone]. Garima Pulliam MCV (RBC) [Entitic vol] 94.1 fL Critically high 80.0-94.0 [facility] Comment on above: Performed By: #### C BC ####[facility] Fomxtuldpk1275 [place] [phone]. Garima Pulliam MONO # 0.7 103/ul Normal 0.3-0.8 [facility] Comment on above: Performed By: #### C BC ####[facility] Rxpktyzzkj5041 [place] [phone]. Garima Pulliam Monocytes/100 WBC (Bld) 8.6 % Normal 1.7-12.0 [facility] Comment on above: Performed By: #### C BC ####[facility] Qmtrcsgeoo10[address] [place] [phone]. Garima Pulliam NEUT # 4.9 103/ul Normal 1.4-6.5 [facility] Comment on above: Performed By: #### C BC ####[facility] Bcoxlwqwcx8[address] [place] [phone]. Garima Pulliam Neutrophils/100 WBC (Bld) 65.1 % Normal 43.0-75.0 [facility] Comment on above: Performed By: #### C BC ####[facility] Tuh[address]uuny[address] [place] [phone]. Garima Pulliam Platelet mean volume (Bld) [Entitic vol] 8.5 fL Critically low 9.5-13.5 [facility] Comment on above: Performed By: #### C BC ####[facility] Xara[address]ja[address] [place] [phone]. Garima Pulliam PLT 219 103/ul Normal 150-450 [facility] Comment on above: Performed By: #### C BC ####[facility] [address]hb[address]egx[address] [place] [phone]. Garima Pulliam RBC 4.56 106/ul Critically low 4.70-6.10 [facility] Comment on above: Performed By: #### C BC ####[facility] Qretgxnohn89[address] [place] [phone]. Garima Pulliam WBC 7.6 103/ul Normal 4.0-11.0 [facility] Comment on above: Performed By: #### C BC ####[facility] Qcwxfenwuv5[address] [place] [phone]. Garima Pulliam LACTATE/LACTIC ACIDon 2022 Lactate [Moles/Vol] 1.2 mmol/L Normal 0.4-2.0 [facility] Comment on above: Performed By: #### L ACT ####[facility] [address]iruojjcl5[address] [place] [phone]. Garima Pulliam MAGNESIUMon 03-30-2023 Magnesium [Mass/Vol] 1.8 mg/dL Normal 1.8-2.4 [facility] Comment on above: Performed By: #### M G ####[facility] Inq[address]vb[address] [place] [address]Dr. Garima Pulliam PROF 14(COMP METB)on 023 Albumin [Mass/Vol] 3.5 g/dL Normal 3.4-5.0 [facility] Comment on above: Performed By: #### C DAVID, NANCY ####[facility] [address]lpr[address] [place] [address]Dr. Garima Pulliam Albumin/Globulin [Mass ratio] 1.2 {ratio} Normal [facility] Comment on above: Performed By: #### C NANCY HERNANDEZ ####[facility] Lliarwlaug[address] [place] [address]Dr. Garima Pulliam ALP [Catalytic activity/Vol] 85 U/L Normal 46-116 [facility] Comment on above: Performed By: #### Ethan HERNANDEZ, NANCY ####[facility] Piyundeckq[address] [place] [address]Dr. Garima Pulliam ALT [Catalytic activity/Vol] 29 U/L Normal 16-63 [facility] Comment on above: Performed By: #### NANCY Long MP ####[facility] [address]jiwamdfu[address] [place] [address]Dr. Garima Pulliam Anion gap [Moles/Vol] 8.0 mmol/L Normal [facility] Comment on above: Performed By: #### C DAVID, NANCY ####[facility] Wtstvfvkeq38[address] [place] [address]Dr. Garima Pulliam AST [Catalytic activity/Vol] 18 U/L Normal 15-37 [facility] Comment on above: Performed By: #### C DAVID, NANCY ####[facility] Fsujfbyetn45[address] [place] [address]Dr. Garima Pulliam Bilirubin [Mass/Vol] 0.4 mg/dL Normal 0.2-1.0 [facility] Comment on above: Performed By: #### NANCY Long MP ####[facility] Ysnkxnrpyp[address] [place] [address]Dr. Garima Pulliam Calcium [Mass/Vol] 8.8 mg/dL Normal 8.5-10.1 [facility] [place] [facility] Comment on above: Performed By: #### C DAVID, NANCY ####[facility] Vfvpwshcoh[address] [place] [address]Dr. Garima Pulliam Chloride [Moles/Vol] 108 mmol/L Critically high 98-107 [facility] Comment on above: Performed By: #### C DAVID, NANCY ####[facility] [address]zknzxlnhb[address] [place] [address]Dr. Garima Pulliam CO2 [Moles/Vol] 29.6 mmol/L Normal 21.0-32.0 [facility] Comment on above: Performed By: #### C DAVID, NANCY ####[facility] Uqfaxotetd[address] [place] [address]Dr. Gariam Pulliam Creatinine [Mass/Vol] 0.77 mg/dL Normal 0.70-1.30 [facility] Comment on above: Performed By: #### C DAVID, NANCY ####[facility] [address]cgbij[address] [place] [address]Dr. Garima Pulliam EGFR-AF [place]IZ[place] >60 Normal >=60 [facility] Comment on above: Performed By: #### C DAVID, NANCY ####[facility] Sqetsipebk[address] [place] [address]Dr. Garima Pulliam EGFR-NON AF CITIZEN OF [place] >60 Normal >=60 [facility] Comment on above: Performed By: #### C DAVID, NANCY ####[facility] Lwtofoyukl[address] [place] [phone]. Garima Pulliam Globulin (S) [Mass/Vol] 2.8 g/dL Normal [facility] Comment on above: Performed By: #### C DAVID, NANCY ####[facility] Talykhjdjb[address] [place] [address]Dr. Garima Pulliam Glucose [Mass/Vol] 207 mg/dL Critically high 74-106 [facility] Comment on above: Performed By: #### C DAVID, NANCY ####[facility] Mgwrkuoray[address]25 [place] [address]Dr. Garima Pulliam Potassium [Moles/Vol] 4.6 mmol/L Normal 3.5-5.1 [facility] Comment on above: Performed By: #### C DAVID, CMADM ####[facility] Vbf[address]cehenj36[address] [place] [address]Dr. Garima Pulliam Protein [Mass/Vol] 6.3 g/dL Critically low 6.4-8.2 Th e [facility] Comment on above: Performed By: #### C DAVID, CMADM ####[facility] Z[address]octrxb[address] [place] [address]Dr. Garima Pulliam Sodium [Moles/Vol] 141 mmol/L Normal 136-145 [facility] Comment on above: Performed By: #### C DAVID, CMADM ####[facility] Fbgekkunnd[address] [place] [address]Dr. Chapisrenu Pulliam Urea nitrogen [Mass/Vol] 9.0 mg/dL Normal 7.0-18.0 [facility] Comment on above: Performed By: #### C DAVID, CMADM ####[facility] Dtrktkuqub9672 [place] [address]Dr. Garima Pulliam Urea nitrogen/Creatinine [Mass ratio] 11.7 mg/mg Normal [facility] Comment on above: Performed By: #### C DAVID, CMADM ####[facility] Twpulvwjef[address] [place] [address]Dr. Chapisrenu Pulliam XR CHEST 1 Von 03-30-2023 XR CHEST 1 V Normal [facility] BNPon 03-27-2023 Natriuretic peptide B (Bld) [Mass/Vol] 251.0 pg/mL Normal <=900.0 [facility] Comment on above: Performed By: #### C MP, BNP, LIPID ####[facility] [address]ff[address] [place], [place] [address]Dr. Garima Heraclio GLYCOHEMOGLOBIN A1Con 2022 ADA RECOMMENDATION SEE BELOW Normal [facility] Comment on above: Result Comment: ADA RECOMMENDED LIMIT 4.0 - 6.0 ADA THERAPEUTIC TARGET < 7.0 ACTION SUGGESTED > 7.0 Performed By: #### A 1C ####[facility] [address] [place] [address]Dr. Garima Pulliam Glucose [Mass/Vol] 180 mg/dL Normal [facility] Comment on above: Performed By: #### A 1C ####[facility] [address]kr[address] [place] [address]Dr. Garima Pulliam HbA1c (Bld) [Mass fraction] 7.9 % Critically high 4.5-6.2 [facility] Comment on above: Performed By: #### A 1C ####[facility] Hwyqamvk[address] [place], [place] [address]Dr. Garima Pulliam HEMOGRAM AND PLATELon 2022 Hematocrit (Bld) [Volume fraction] 45.7 % Normal 42.0-54.0 [facility] Comment on above: Performed By: #### H H ####[facility] Blgdhnil[address] [place], [place] [address]Dr. Garima Pulliam Hemoglobin (Bld) [Mass/Vol] 15.1 g/dL Normal 14.0-18.0 [facility] Comment on above: Performed By: #### H H ####[facility] Orgihzrxvu[address] [place], [place] [address]Dr. Garima Pulliam MCH (RBC) [Entitic mass] 30.0 pg Normal 25.9-34.0 [facility] Comment on above: Performed By: #### H H ####[facility] Ahovbmbpkn[address] [place], [place] [address]Dr. Garima Pulliam MCHC (RBC) [Mass/Vol] 33.0 g/dL Normal 29.9-35.2 [facility] Comment on above: Performed By: #### H H ####[facility] Aixls[address]vcj[address] [place], [place] [address]Dr. Garima Pulliam MCV (RBC) [Entitic vol] 90.7 fL Normal 80.0-94.0 [facility] Comment on above: Performed By: #### H H ####[facility] Zqhgfmztvt[address] [place], [place] [address]Dr. Garima Pulliam PLT 222 103/ul Normal 150-450 [facility] Comment on above: Performed By: #### H H ####[facility] [address] [place] [phone]. Garima Pulliam RBC 5.04 106/ul Normal 4.70-6.10 [facility] Comment on above: Performed By: #### H H ####[facility] K[address] [place] [phone]. Garima Pulliam WBC 8.7 103/ul Normal 4.0-11.0 [facility] Comment on above: Performed By: #### H H ####[facility] Z[address]ve[address]rrj[address] [place] [address]Dr. Garima Pulliam LIPID PROFILEon 03-27-2023 CHOL-HDL RATIO NORM SEE BELOW Normal [facility] Comment on above: Result Comment: 3.3 - 4.4 LOW RISK 4.4 - 7.1 AVERAGE RISK 7.1 - 11.0 MODERATE RISK >11.0 HIGH RISK Performed By: #### C MP, BNP, LIPID ####[facility] [address] [place] [phone]. Garima Pulliam Cholesterol [Mass/Vol] 113 mg/dL Normal <=200 [facility] Comment on above: Performed By: #### C MP, BNP, LIPID ####[facility] [address]febsp[address] [place] [phone]. Garima Pulliam Cholesterol in HDL [Mass/Vol] 51 mg/dL Normal 40-60 [facility] Comment on above: Performed By: #### C MP, BNP, LIPID ####[facility] [address]qpzpaauj[address] [place] [phone]. Garima Pulliam Cholesterol in LDL [Mass/Vol] 49.8 mg/dL Normal [facility] Comment on above: Performed By: #### C MP, BNP, LIPID ####[facility] [address]jznkhr63[address] [place] [phone]. Garima Pulliam Cholesterol.total/Cho lesterol in HDL [Mass ratio] 2.2 {ratio} Normal [facility] Comment on above: Performed By: #### C MP, BNP, LIPID ####[facility] [address] [place] [address]Dr. Garima Pulliam HDL NORMAL > or = 60 mg/dl - LOW CARDIOVASCULAR RISK <40 mg/dl - HIGH CARDIOVASCULAR RISK Normal [facility] Comment on above: Performed By: #### C MP, BNP, LIPID ####[facility] [address]qim[address] [place] [address]Dr. Garima Pulliam LDL CALC NORMAL SEE BELOW Normal [facility] Comment on above: Result Comment: <100 mg/dl OPTIMAL 100 - 129 mg/dl NEAR OR ABOVE OPTIMAL 130 - 159 mg/dl BORDERLINE HIGH 160 - 189 mg/dl HIGH >190 mg/dl VERY HIGH Performed By: #### C MP, BNP, LIPID ####[facility] [address] [place] [address]Dr. Garima Pulliam Triglyceride [Mass/Vol] 61 mg/dL Normal <=150 [facility] Comment on above: Performed By: #### C MP, BNP, LIPID ####[facility] Drkawtdeoq[address] [place] [address]Dr. Garima Pulliam VLDL CALC 12.2 mg/dL Normal [facility] Comment on above: Performed By: #### C MP, BNP, LIPID ####[facility] Boient[address] [place] [address]Dr. Garima Pulliam PROF 14(COMP METB)on 023 Albumin [Mass/Vol] 3.5 g/dL Normal 3.4-5.0 [facility] Comment on above: Performed By: #### C MP, BNP, LIPID ####[facility] Bfu[address]qj[address] [place] [address]Dr. Garima Pulliam Albumin/Globulin [Mass ratio] 1.2 {ratio} Normal [facility] Comment on above: Performed By: #### C MP, BNP, LIPID ####[facility] Ium[address]fzedt[address] [place] [address]Dr. Garima Pulliam ALP [Catalytic activity/Vol] 82 U/L Normal 46-116 [facility] Comment on above: Performed By: #### C MP, BNP, LIPID ####[facility] S[address]jupe[address] [place] [address]Dr. Garima Pulliam ALT [Catalytic activity/Vol] 33 U/L Normal 16-63 [facility] Comment on above: Performed By: #### C MP, BNP, LIPID ####[facility] T[address]rmdr[address] [place] [address]Dr. Garima Pulliam Anion gap [Moles/Vol] 9.9 mmol/L Normal [facility] Comment on above: Performed By: #### C MP, BNP, LIPID ####[facility] T[address]bpwj[address] [place] [address]Dr. Garima Pulliam AST [Catalytic activity/Vol] 24 U/L Normal 15-37 [facility] Comment on above: Performed By: #### C MP, BNP, LIPID ####[facility] M[address]qrwzoppd[address] [place] [address]Dr. Garima Pulliam Bilirubin [Mass/Vol] 0.6 mg/dL Normal 0.2-1.0 [facility] Comment on above: Performed By: #### C MP, BNP, LIPID ####[facility] M[address]fcngwr[address] [place] [address]Dr. Garima Pulliam Calcium [Mass/Vol] 9.2 mg/dL Normal 8.5-10.1 [facility] Comment on above: Performed By: #### C MP, BNP, LIPID ####[facility] [address] [place] [address]Dr. Garima Pulliam Chloride [Moles/Vol] 106 mmol/L Normal 98-107 [facility] Comment on above: Performed By: #### C MP, BNP, LIPID ####[facility] Z[address]wxjfnrp25[address] [place] [address]Dr. Garima Pulliam CO2 [Moles/Vol] 32.3 mmol/L Critically high 21.0-32.0 [facility] Comment on above: Performed By: #### C MP, BNP, LIPID ####[facility] I[address]zticzae[address] [place] [address]Dr. Garima Pulliam Creatinine [Mass/Vol] 0.70 mg/dL Normal 0.70-1.30 [facility] Comment on above: Performed By: #### C MP, BNP, LIPID ####[facility] Yqtw[address]bqgj[address] [place] [address]Dr. Chapisrenu Heraclio EGFR-AF [place]IZ[place] >60 Normal >=60 [facility] Comment on above: Performed By: #### C MP, BNP, LIPID ####[facility] Lmnsvicver[address] [place] [address]Dr. Garima Pulliam EGFR-NON AF [place]IZ[place] >60 Normal >=60 [facility] Comment on above: Performed By: #### C MP, BNP, LIPID ####[facility] Uvqfujzeuu[address] [place] [address]Dr. Garima Pulliam Globulin (S) [Mass/Vol] 2.9 g/dL Normal [facility] Comment on above: Performed By: #### C MP, BNP, LIPID ####[facility] Yqvgnhuiaw[address] [place] [address]Dr. Garima Pulliam Glucose [Mass/Vol] 111 mg/dL Critically high 74-106 [facility] Comment on above: Performed By: #### C MP, BNP, LIPID ####[facility] Rxkxrupeof[address] [place], [place] [address]Dr. Garima Pulliam Potassium [Moles/Vol] 4.2 mmol/L Normal 3.5-5.1 [facility] Comment on above: Performed By: #### C MP, BNP, LIPID ####[facility] Hylwiqsxif[address] [place], [place] [address]Dr. Garima Pulliam Protein [Mass/Vol] 6.4 g/dL Normal 6.4-8.2 [facility] Comment on above: Performed By: #### C MP, BNP, LIPID ####[facility] Sy[address]qdbqstx[address] [place], [place] [address]Dr. Garima Pulliam Sodium [Moles/Vol] 144 mmol/L Normal 136-145 [facility] Comment on above: Performed By: #### C MP, BNP, LIPID ####[facility] Wwdypdunom[address] [place], [place] [address]Dr. Garima Pulliam Urea nitrogen [Mass/Vol] 7.0 mg/dL Normal 7.0-18.0 [facility] Comment on above: Performed By: #### C MP, BNP, LIPID ####[facility] Vebmzgwnyd[address] [place], [place] [address]Dr. Garima Pulliam Urea nitrogen/Creatinine [Mass ratio] 10.0 mg/mg Normal [facility] Comment on above: Performed By: #### C MP, BNP, LIPID ####[facility] Znxqiktcrz74[address] [place], [place] [address]Dr. Garima Pulliam BNPon 03-22-2023 Natriuretic peptide B (Bld) [Mass/Vol] 103.0 pg/mL Normal <=900.0 [facility] Comment on above: Performed By: #### B SOFTWARE QUALITY ASSURANCE ANALYST, BMP ####[facility] Uaktshxdue[address] [place], [place] [address]Dr. Garima Pulliam CBC AUTO DIFFon 03-22-2023 BASO # 0.0 103/ul Normal 0.0-0.1 [facility] Comment on above: Performed By: #### C BC ####[facility] Mtgkhwvcpl64[address] [place], [place] [address]Dr. Garima Pulliam Basophils/100 WBC (Bld) 0.3 % Normal 0.2-2.0 [facility] Comment on above: Performed By: #### C BC ####[facility] Nnyzxckmhy[address] [place], [place] [address]Dr. Garima Pulliam EO # 0.2 103/ul Normal 0.0-0.7 [facility] Comment on above: Performed By: #### C BC ####[facility] Rlnrefeokn3[address] [place], [place] [address]Dr. Garima Pulliam Eosinophils/100 WBC (Bld) 2.2 % Normal 0.9-7.0 [facility] Comment on above: Performed By: #### C BC ####[facility] Gmikioqwlg[address] [place], [place] [address]Dr. Garima Pulliam Erythrocyte distribution width (RBC) [Ratio] 13.2 % Normal 11.0-15.0 [facility] Comment on above: Performed By: #### C BC ####[facility] Daw[address]wnf[address] [place] [address]Dr. Garima Pulliam Hematocrit (Bld) [Volume fraction] 43.4 % Normal 42.0-54.0 [facility] Comment on above: Performed By: #### C BC ####[facility] Pllwxjmwni[address] [place] [address]Dr. Garima Heraclio Hemoglobin (Bld) [Mass/Vol] 14.3 g/dL Normal 14.0-18.0 [facility] Comment on above: Performed By: #### C BC ####[facility] Ibcvhvwjtj[address] [place], [place] [address]Dr. Garima Heraclio IG # 0.02 10e3/ul Normal 0.00-0.03 [facility] Comment on above: Performed By: #### C BC ####[facility] Bvoldaxaac[address] [place], [place] [address]Dr. Garima Pulliam IG % 0.3 % Normal 0.0-0.5 [facility] Comment on above: Performed By: #### C BC ####[facility] Ydbcyseflm[address] [place], [place] [address]Dr. Garima Heraclio LYMPH # 2.0 103/ul Normal 1.2-3.8 [facility] Comment on above: Performed By: #### C BC ####[facility] Nzrpuvtrkl[address] [place], [place] [address]Dr. Chapisrenu Pulliam Lymphocytes/100 WBC (Bld) 24.8 % Normal 20.5-60.0 [facility] Comment on above: Performed By: #### C BC ####[facility] Kqcepvymyv[address] [place], [place] [address]Dr. Chapisrenu Pulliam MANUAL DIFF REQ NO Normal [facility] Comment on above: Performed By: #### C BC ####[facility] Qsttmpfcmh[address] [place], [place] [address]Dr. Garima Pulliam MCH (RBC) [Entitic mass] 30.0 pg Normal 25.9-34.0 [facility] Comment on above: Performed By: #### C BC ####[facility] [address] [place] [phone]. Garima Heraclio MCHC (RBC) [Mass/Vol] 32.9 g/dL Normal 29.9-35.2 [facility] Comment on above: Performed By: #### C BC ####[facility] [address]ss[address] [place] [phone]. Garima Pulliam MCV (RBC) [Entitic vol] 91.0 fL Normal 80.0-94.0 [facility] Comment on above: Performed By: #### C BC ####[facility] Jhcuovlqkv[address] [place], [place] [address]Dr. Garima Pulliam MONO # 0.8 103/ul Normal 0.3-0.8 [facility] Comment on above: Performed By: #### C BC ####[facility] Sikswqojvz65[address] [place], [place] [address]Dr. Garima Pulliam Monocytes/100 WBC (Bld) 9.7 % Normal 1.7-12.0 [facility] Comment on above: Performed By: #### C BC ####[facility] Ekfvqnwqda[address] [place], [place] [address]Dr. Garima Pulliam NEUT # 4.9 103/ul Normal 1.4-6.5 [facility] Comment on above: Performed By: #### C BC ####[facility] [address]tng[address]rixh[address] [place], [place] [address]Dr. Garima Pulliam Neutrophils/100 WBC (Bld) 62.7 % Normal 43.0-75.0 [facility] Comment on above: Performed By: #### C BC ####[facility] Evsewdztoc[address] [place], [place] [address]Dr. Garima Pulliam Platelet mean volume (Bld) [Entitic vol] 8.8 fL Critically low 9.5-13.5 [facility] Comment on above: Performed By: #### C BC ####[facility] Iuf[address]rapqm[address] [place], [place] [address]Dr. Garima Pulliam PLT 198 103/ul Normal 150-450 [facility] Comment on above: Performed By: #### C BC ####[facility] Evxnuetebo[address] [place] [phone]. Chapisrenu Pulliam RBC 4.77 106/ul Normal 4.70-6.10 [facility] Comment on above: Performed By: #### C BC ####[facility] Z[address]zpmawlp[address] [place] [phone]. Garima Pulliam WBC 7.9 103/ul Normal 4.0-11.0 [facility] Comment on above: Performed By: #### C BC ####[facility] Z[address]uihaor[address] [place] [address]Dr. Garima Pulliam D-DIMERon 03-22-2023 D-DIMER 0.85 mg/L FEU Critically high <=0.59 [facility] Comment on above: Performed By: #### D DIM ####[facility] G[address]owrwww[address] [place], [place] [address]Dr. Garima Pulliam D-DIMER COMMENTS SEE BELOW Normal [facility] Comment on above: Result Comment: Incr eases [...] generalized hospitalization. Performed By: #### D DIM ####[facility] I[address]ksepzj[address] [place] [address]Dr. Garima Pulliam PROF CHEM 8 (BAS METB)on Anion gap [Moles/Vol] 6.9 mmol/L Normal [facility] Comment on above: Performed By: #### B SOFTWARE QUALITY ASSURANCE ANALYST, BMP ####[facility] U[address]lypofgc[address] [place] [address]Dr. Garima Pulliam Calcium [Mass/Vol] 8.9 mg/dL Normal 8.5-10.1 [facility] Comment on above: Performed By: #### B SOFTWARE QUALITY ASSURANCE ANALYST, BMP ####[facility] [address]qozvo[address] [place] [phone]. Garima Pulliam Chloride [Moles/Vol] 101 mmol/L Normal 98-107 [facility] Comment on above: Performed By: #### B SOFTWARE QUALITY ASSURANCE ANALYST, BMP ####[facility] F[address]qtfigxit[address] [place] [phone]. Garima Pulliam CO2 [Moles/Vol] 30.7 mmol/L Normal 21.0-32.0 [facility] Comment on above: Performed By: #### B SOFTWARE QUALITY ASSURANCE ANALYST, BMP ####[facility] K[address]ouibgo[address] [place] [phone]. Garima Pulliam Creatinine [Mass/Vol] 0.82 mg/dL Normal 0.70-1.30 [facility] Comment on above: Performed By: #### B SOFTWARE QUALITY ASSURANCE ANALYST, BMP ####[facility] F[address]hhg[address] [place] [address]Dr. Garima Pulliam EGFR-AF [place]IZ[place] >60 Normal >=60 [facility] Comment on above: Performed By: #### B SOFTWARE QUALITY ASSURANCE ANALYST, BMP ####[facility] Arzkioqsak[address] [place] [address]Dr. Garima Pulliam EGFR-NON AF CITIZEN OF [place] >60 Normal >=60 [facility] Comment on above: Performed By: #### B SOFTWARE QUALITY ASSURANCE ANALYST, BMP ####[facility] [address]ryxbcbbfl[address] [place], [place] [address]Dr. Garima Pullima Glucose [Mass/Vol] 339 mg/dL Critically high 74-106 [facility] Comment on above: Performed By: #### B SOFTWARE QUALITY ASSURANCE ANALYST, BMP ####[facility] [address]ov[address] [place] [phone]. Garima Pulliam Potassium [Moles/Vol] 3.6 mmol/L Normal 3.5-5.1 [facility] Comment on above: Performed By: #### B SOFTWARE QUALITY ASSURANCE ANALYST, BMP ####[facility] [address]jeaudvep40[address] [place] [address]Dr. Garima Pulliam Sodium [Moles/Vol] 135 mmol/L Critically low 136-145 [facility] Comment on above: Performed By: #### B SOFTWARE QUALITY ASSURANCE ANALYST, BMP ####[facility] Yrhxakxksh60[address] [place] [phone]. Garima Pulliam Urea nitrogen [Mass/Vol] 11.0 mg/dL Normal 7.0-18.0 [facility] Comment on above: Performed By: #### B SOFTWARE QUALITY ASSURANCE ANALYST, BMP ####[facility] Pupqmeppef[address] [place] [phone]. Garima Pulliam Urea nitrogen/Creatinine [Mass ratio] 13.4 mg/mg Normal [facility] Comment on above: Performed By: #### B SOFTWARE QUALITY ASSURANCE ANALYST, BMP ####[facility] Czesfcsemn[address] [place], [place] [address]Dr. Garima Pulliam US VERONICA DOP LEG BILon 023 US VERONICA DOP LEG BENOIT Normal [facility] BNPon 03-18-2023 Natriuretic peptide B (Bld) [Mass/Vol] 226.0 pg/mL Normal <=900.0 [facility] Comment on above: Performed By: #### B SOFTWARE QUALITY ASSURANCE ANALYST, BMP ####[facility] Djgqgkydmk[address] [place], [place] [address]Dr. Garima Pulliam CBC AUTO DIFFon 03-18-2023 BASO # 0.0 103/ul Normal 0.0-0.1 [facility] Comment on above: Performed By: #### C BC ####[facility] Lqqsphbggu[address] [place], [place] [address]Dr. Garima Heraclio Basophils/100 WBC (Bld) 0.2 % Normal 0.2-2.0 [facility] Comment on above: Performed By: #### C BC ####[facility] Qlrtivykhv[address] [place], [place] [address]Dr. Garima Pulliam EO # 0.3 103/ul Normal 0.0-0.7 [facility] Comment on above: Performed By: #### C BC ####[facility] Hmvtpzwzbj[address] [place], [place] [address]Dr. Garima Heraclio Eosinophils/100 WBC (Bld) 2.5 % Normal 0.9-7.0 [facility] Comment on above: Performed By: #### C BC ####[facility] Xtokrchvec25[address] [place], [place] [address]Dr. Garima Pulliam Erythrocyte distribution width (RBC) [Ratio] 13.2 % Normal 11.0-15.0 [facility] Comment on above: Performed By: #### C BC ####[facility] Qnfritxxpk4[address] [place] [address]Dr. Garima Pulliam Hematocrit (Bld) [Volume fraction] 45.8 % Normal 42.0-54.0 [facility] Comment on above: Performed By: #### C BC ####[facility] Fnrhpuderu97[address] [place] [address]Dr. Garima Pulliam Hemoglobin (Bld) [Mass/Vol] 15.3 g/dL Normal 14.0-18.0 [facility] Comment on above: Performed By: #### C BC ####[facility] H[address]ajsaofh[address] [place], [place] [address]Dr. Garima Heraclio IG # 0.02 10e3/ul Normal 0.00-0.03 [facility] Comment on above: Performed By: #### C BC ####[facility] Elyfnkpokt[address] [place], [place] [address]Dr. Garima Pulliam IG % 0.2 % Normal 0.0-0.5 [facility] Comment on above: Performed By: #### C BC ####[facility] Cugbnffjty[address] [place], [place] [address]Dr. Garima Heraclio LYMPH # 1.8 103/ul Normal 1.2-3.8 [facility] Comment on above: Performed By: #### C BC ####[facility] Nhkywwoqte[address] [place], [place] [address]Dr. Chapisrenu Pulliam Lymphocytes/100 WBC (Bld) 18.3 % Critically low 20.5-60.0 [facility] Comment on above: Performed By: #### C BC ####[facility] Cjpjjktivn[address] [place], [place] [address]Dr. Chapisrenu Pulliam MANUAL DIFF REQ NO Normal [facility] Comment on above: Performed By: #### C BC ####[facility] Araiijkzgw[address] [place], [place] [address]Dr. Garima uPlliam MCH (RBC) [Entitic mass] 30.5 pg Normal 25.9-34.0 [facility] Comment on above: Performed By: #### C BC ####[facility] Hrthidvoue24[address] [place] [phone]. Garima Pulliam MCHC (RBC) [Mass/Vol] 33.4 g/dL Normal 29.9-35.2 [facility] Comment on above: Performed By: #### C BC ####[facility] H[address]myizdvg[address] [place] [phone]. Garima Pulliam MCV (RBC) [Entitic vol] 91.2 fL Normal 80.0-94.0 [facility] Comment on above: Performed By: #### C BC ####[facility] Yany[address]vnjzb[address] [place], [place] [address]DrAdalberto Garima Heraclio MONO # 0.8 103/ul Normal 0.3-0.8 [facility] Comment on above: Performed By: #### C BC ####[facility] [address]elfovstsf[address] [place], [place] [address]Dr. Garima Heraclio Monocytes/100 WBC (Bld) 7.6 % Normal 1.7-12.0 [facility] Comment on above: Performed By: #### C BC ####[facility] [facility] Namrtfvdkk[address] [place], [place] [address]Dr. Garima Pulliam NEUT # 7.0 103/ul Critically high 1.4-6.5 [facility] Comment on above: Performed By: #### C BC ####[facility] Dgtmgvlxfp68[address] [place], [place] [address]DrAdalberto Garima Heraclio Neutrophils/100 WBC (Bld) 71.2 % Normal 43.0-75.0 [facility] Comment on above: Performed By: #### C BC ####[facility] Fkswsdutnx97[address] [place], [place] [address]Dr. Garima Pulliam Platelet mean volume (Bld) [Entitic vol] 8.9 fL Critically low 9.5-13.5 [facility] Comment on above: Performed By: #### C BC ####[facility] [address] [place] [id number]. Garima Pulliam PLT 217 103/ul Normal 150-450 [facility] Comment on above: Performed By: #### C BC ####[facility] Qfmheoqsea74[address] [place], [place] [address]Dr. Garima Pulliam RBC 5.02 106/ul Normal 4.70-6.10 [facility] Comment on above: Performed By: #### C BC ####[facility] Bigbncqovf[address] [place], [place] [address]Dr. Garima Pulliam WBC 9.8 103/ul Normal 4.0-11.0 [facility] Comment on above: Performed By: #### C BC ####[facility] Blrdqteiaj0011[address] [place], [place] [address]Dr. Garima Heraclio CRPon 03-18-2023 CRP 0.1 mg/dL Normal <=1.0 [facility] Comment on above: Performed By: #### C RP ####[facility] Eczrqsreih58[address] [place], [place] [address]Dr. Garima Heraclio PROF CHEM 8 (BAS METB)on Anion gap [Moles/Vol] 10.4 mmol/L Normal [facility] Comment on above: Performed By: #### B SOFTWARE QUALITY ASSURANCE ANALYST, BMP ####[facility] Txgxjdyqcb87[address] [place], [place] [address]Dr. Garima Heraclio Calcium [Mass/Vol] 8.8 mg/dL Normal 8.5-10.1 [facility] Comment on above: Performed By: #### B SOFTWARE QUALITY ASSURANCE ANALYST, BMP ####[facility] [address] [place] [address]Dr. Garima Pulliam Chloride [Moles/Vol] 97 mmol/L Critically low 98-107 [facility] Comment on above: Performed By: #### B SOFTWARE QUALITY ASSURANCE ANALYST, BMP ####[facility] [address] [place] [address]Dr. Garima Pulliam CO2 [Moles/Vol] 31.2 mmol/L Normal 21.0-32.0 [facility] Comment on above: Performed By: #### B SOFTWARE QUALITY ASSURANCE ANALYST, BMP ####[facility] Ylkxkvlfjg[address] [place] [phone]. Garima Pulliam Creatinine [Mass/Vol] 0.91 mg/dL Normal 0.70-1.30 [facility] Comment on above: Performed By: #### B SOFTWARE QUALITY ASSURANCE ANALYST, BMP ####[facility] [address] [place] [id number]. Garima Pulliam EGFR-AF CITIZ[place] >60 Normal >=60 [facility] Comment on above: Performed By: #### B SOFTWARE QUALITY ASSURANCE ANALYST, BMP ####[facility] [address]jtjzmcooi[address] [place] [phone]. Garima Pulliam EGFR-NON AF CITIZEN OF [place] >60 Normal >=60 [facility] Comment on above: Performed By: #### B SOFTWARE QUALITY ASSURANCE ANALYST, BMP ####[facility] Gbfvelrtpu[address] [place], [place] [id number]. Garima Pulliam Glucose [Mass/Vol] 315 mg/dL Critically high 74-106 T [facility] Comment on above: Performed By: #### B SOFTWARE QUALITY ASSURANCE ANALYST, BMP ####[facility] Zlwmgiygsx8[address] [place], [place] [id number]. Garima Pulliam Potassium [Moles/Vol] 3.6 mmol/L Normal 3.5-5.1 [facility] Comment on above: Performed By: #### B SOFTWARE QUALITY ASSURANCE ANALYST, BMP ####[facility] Tjslvmdnpo[address] [place], [place] [id number]. Garima Pulliam Sodium [Moles/Vol] 135 mmol/L Critically low 136-145 [facility] Comment on above: Performed By: #### B SOFTWARE QUALITY ASSURANCE ANALYST, BMP ####[facility] Pezvdcnepl[address] [place], [place] [id number]. Garima Pulliam Urea nitrogen [Mass/Vol] 7.0 mg/dL Normal 7.0-18.0 [facility] Comment on above: Performed By: #### B SOFTWARE QUALITY ASSURANCE ANALYST, BMP ####[facility] Dytyqegfaz[address] [place], [place] [id number]. Garima Pulliam Urea nitrogen/Creatinine [Mass ratio] 7.7 mg/mg Normal [facility] Comment on above: Performed By: #### B SOFTWARE QUALITY ASSURANCE ANALYST, BMP ####[facility] Xcruqzyybx253[address] [place], [place] [address]Dr. Garima Pulliam SED RATE WESTERGRENon 2022 SED RATE 8 mm/hr Normal <=20 [facility] Comment on above: Performed By: #### S EDR ####[facility] Yvnpnrbtaw[address] [place], [place] [address]Dr. Garima Pulliam BNPon 03-16-2023 Natriuretic peptide B (Bld) [Mass/Vol] 241.0 pg/mL Normal <=900.0 [facility] Comment on above: Performed By: #### B SOFTWARE QUALITY ASSURANCE ANALYST, BMP, HSTROPN ####[facility] Edbksxbkqc578[address] [place], [place] [address]Dr. Garima Hercalio CBC AUTO DIFFon 03-16-2023 BASO # 0.0 103/ul Normal 0.0-0.1 [facility] Comment on above: Performed By: #### C BC ####[facility] Gctmzyypol[address] [place], [place] [address]Dr. Garima Heraclio Basophils/100 WBC (Bld) 0.2 % Normal 0.2-2.0 [facility] Comment on above: Performed By: #### C BC ####[facility] Gfhmjapiyf[address] [place], [place] [address]Dr. Chapisrenu Heraclio EO # 0.2 103/ul Normal 0.0-0.7 [facility] Comment on above: Performed By: #### C BC ####[facility] Gjmomlfrdv8[address] [place], [place] [address]Dr. Garima Heraclio Eosinophils/100 WBC (Bld) 2.7 % Normal 0.9-7.0 [facility] Comment on above: Performed By: #### C BC ####[facility] Bstspbbtgf8064[address] [place], [place] [address]Dr. Garima Heraclio Erythrocyte distribution width (RBC) [Ratio] 13.1 % Normal 11.0-15.0 [facility] Comment on above: Performed By: #### C BC ####[facility] Iprjkvnnbf597[address] [place], [place] [address]Dr. Garima Heraclio Hematocrit (Bld) [Volume fraction] 41.8 % Critically low 42.0-54.0 [facility] Comment on above: Performed By: #### C BC ####[facility] [address]xa[address] [place] [address]DrAdalberto Garima Pulliam Hemoglobin (Bld) [Mass/Vol] 14.0 g/dL Normal 14.0-18.0 [facility] Comment on above: Performed By: #### C BC ####[facility] [address] [place] [address]DrAdalberto Pulliam IG # 0.03 10e3/ul Normal 0.00-0.03 [facility] Comment on above: Performed By: #### C BC ####[facility] Nqkhdlvfww1539[address] [place], [place] [address]DrAdalberto Chapisrenu Pulliam IG % 0.3 % Normal 0.0-0.5 [facility] Comment on above: Performed By: #### C BC ####[facility] Tciyujkghe23[address] [place], [place] [address]DrAdalberto Chapisrenu Pulliam LYMPH # 2.1 103/ul Normal 1.2-3.8 [facility] Comment on above: Performed By: #### C BC ####[facility] Haoubudpjg[address] [place], [place] [address]DrAdalberto Chapisrenu Pulliam Lymphocytes/100 WBC (Bld) 24.2 % Normal 20.5-60.0 [facility] Comment on above: Performed By: #### C BC ####[facility] Tbqxavowka8[address] [place], [place] [address]DrAdalberto Pulliam MANUAL DIFF REQ NO Normal [facility] Comment on above: Performed By: #### C BC ####[facility] Loknqclgpr230[address] [place], [place] [address]DrAdalberto Pulliam MCH (RBC) [Entitic mass] 30.2 pg Normal 25.9-34.0 [facility] Comment on above: Performed By: #### C BC ####[facility] Fxfijjffbd18[address] [place], [place] [address]DrAdalberto Pulliam MCHC (RBC) [Mass/Vol] 33.5 g/dL Normal 29.9-35.2 [facility] Comment on above: Performed By: #### C BC ####[facility] Gmdmkpoajv86[address] [place], [place] [address]DrAdalberto Pulliam MCV (RBC) [Entitic vol] 90.1 fL Normal 80.0-94.0 [facility] Comment on above: Performed By: #### C BC ####[facility] Ggytxjtuar[address] [place], [place] [address]DrAdalberto Pulliam MONO # 0.6 103/ul Normal 0.3-0.8 [facility] Comment on above: Performed By: #### C BC ####[facility] Leapupxqsx8918[address] [place], [place] [address]DrAdalberto Pulliam Monocytes/100 WBC (Bld) 7.4 % Normal 1.7-12.0 [facility] Comment on above: Performed By: #### C BC ####[facility] Mfdbaanjrj4[address] [place], [place] [address]DrAdalberto Pulliam NEUT # 5.6 103/ul Normal 1.4-6.5 [facility] Comment on above: Performed By: #### C BC ####[facility] Etmowhlvka[address] [place], [place] [address]DrAdalberto Pulliam Neutrophils/100 WBC (Bld) 65.2 % Normal 43.0-75.0 [facility] Comment on above: Performed By: #### C BC ####[facility] Iorqplenkw[address] [place], [place] [address]DrAdalberto Pulliam Platelet mean volume (Bld) [Entitic vol] 8.7 fL Critically low 9.5-13.5 [facility] Comment on above: Performed By: #### C BC ####[facility] Dypttejrrt[address] [place], [place] [address]DrAdalberto Pulliam PLT 195 103/ul Normal 150-450 [facility] Comment on above: Performed By: #### C BC ####[facility] Dguodhqihh394[address] [place], [place] [address]DrAdalberto Pulliam RBC 4.64 106/ul Critically low 4.70-6.10 [facility] Comment on above: Performed By: #### C BC ####[facility] Zqunmcxcsu4365[address] [place], [place] [address]Dr. Chapisrenu Pulliam WBC 8.6 103/ul Normal 4.0-11.0 [facility] Comment on above: Performed By: #### C BC ####[facility] Dsxpqdpoja4414[address] [place], [place] [address]Dr. Garima Pulliam PROF CHEM 8 (BAS METB)on Anion gap [Moles/Vol] 6.7 mmol/L Normal [facility] Comment on above: Performed By: #### B SOFTWARE QUALITY ASSURANCE ANALYST, BMP, HSTROPN ####[facility] Dyqxdembdm740[address] [place], [place] [address]Dr. Garima Pulliam Calcium [Mass/Vol] 8.8 mg/dL Normal 8.5-10.1 [facility] Comment on above: Performed By: #### B SOFTWARE QUALITY ASSURANCE ANALYST, BMP, HSTROPN ####[facility] Ojjgchnyca[address] [place], [place] [address]Dr. Garima Pulliam Chloride [Moles/Vol] 106 mmol/L Normal 98-107 [facility] Comment on above: Performed By: #### B SOFTWARE QUALITY ASSURANCE ANALYST, BMP, HSTROPN ####[facility] Aktvpmaqrj[address] [place], [place] [address]Dr. Garima Pulliam CO2 [Moles/Vol] 31.4 mmol/L Normal 21.0-32.0 [facility] Comment on above: Performed By: #### B SOFTWARE QUALITY ASSURANCE ANALYST, BMP, HSTROPN ####[facility] Lcxogujmlz3814[address] [place], [place] [address]Dr. Garima Pulliam Creatinine [Mass/Vol] 0.75 mg/dL Normal 0.70-1.30 [facility] Comment on above: Performed By: #### B SOFTWARE QUALITY ASSURANCE ANALYST, BMP, HSTROPN ####[facility] Pxslxaxyvl7875[address] [place], [place] [address]Dr. Garima Pulliam EGFR-AF [place]IZ[place] >60 Normal >=60 [facility] Comment on above: Performed By: #### B SOFTWARE QUALITY ASSURANCE ANALYST, BMP, HSTROPN ####[facility] [address] [place] [address]Dr. Garima Pulliam EGFR-NON AF [place]IZEN OF [place] >60 Normal >=60 [facility] Comment on above: Performed By: #### B SOFTWARE QUALITY ASSURANCE ANALYST, BMP, HSTROPN ####[facility] [address] [place] [address]Dr. Garima Pulliam Glucose [Mass/Vol] 161 mg/dL Critically high 74-106 T [facility] Comment on above: Performed By: #### B SOFTWARE QUALITY ASSURANCE ANALYST, BMP, HSTROPN ####[facility] [address] [place] [address]Dr. Garima Pulliam Potassium [Moles/Vol] 4.1 mmol/L Normal 3.5-5.1 [facility] Comment on above: Performed By: #### B SOFTWARE QUALITY ASSURANCE ANALYST, BMP, HSTROPN ####[facility] [address] [place] [address]Dr. Garima Pulliam Sodium [Moles/Vol] 140 mmol/L Normal 136-145 [facility] Comment on above: Performed By: #### B SOFTWARE QUALITY ASSURANCE ANALYST, BMP, HSTROPN ####[facility] [address]cpb[address] [place] [address]Dr. Garima Pulliam Urea nitrogen [Mass/Vol] 7.0 mg/dL Normal 7.0-18.0 [facility] Comment on above: Performed By: #### B SOFTWARE QUALITY ASSURANCE ANALYST, BMP, HSTROPN ####[facility] T[address]zqyrasj[address] [place] [address]Dr. Garima Pulliam Urea nitrogen/Creatinine [Mass ratio] 9.3 mg/mg Normal [facility] Comment on above: Performed By: #### B SOFTWARE QUALITY ASSURANCE ANALYST, BMP, HSTROPN ####[facility] Kelfihwedy[address] [place], [place] [address]Dr. Garima Pulliam TROPONIN, HIGH SENSITIVITYon 03-16-2023 HSTROP 9.7 pg/mL Normal 4.0-76.1 [facility] Comment on above: Result Comment: CUT- OFF POINTS HAVE BEEN ESTABLISHED BASED ON THE FOURTH UNIVERSAL DEFINITIONS OF MYOCARDIALINFARCTION. THE UPPER REFERENCE LIMIT (URL) OF TROPONIN, DEFINED THE 99TH PERCENTILE OFcTnI DISTRIBUTION IN A REFERENCE POPULATION, HAS BEEN CONFIRMED THE DECISION THRESHOLDFOR WI DIAGNOSIS. Performed By: #### B SOFTWARE QUALITY ASSURANCE ANALYST, BMP, HSTROPN ####[facility] [address] [place] [address]Dr. Garima Pulliam XR CHEST 1 Von 03-16-2023 XR CHEST 1 V Normal [facility] BNPon 03-06-2023 Natriuretic peptide B (Bld) [Mass/Vol] 111.0 pg/mL Normal <=900.0 [facility] Comment on above: Performed By: #### C MP, BNP, CK ####[facility] Xtbpfdrahp[address] [place], [place] [address]Dr. Garima Pulliam CBC AUTO DIFFon 03-06-2023 BASO # 0.0 103/ul Normal 0.0-0.1 [facility] Comment on above: Performed By: #### C BC ####[facility] Pzhniyjvvx[address] [place], [place] [address]Dr. Garima Heraclio Basophils/100 WBC (Bld) 0.2 % Normal 0.2-2.0 [facility] Comment on above: Performed By: #### C BC ####[facility] Oxnhwjtysf[address] [place], [place] [address]Dr. Garima Pulliam EO # 0.3 103/ul Normal 0.0-0.7 [facility] Comment on above: Performed By: #### C BC ####[facility] Fenbsfwthe[address] [place], [place] [address]Dr. Garima Heraclio Eosinophils/100 WBC (Bld) 3.5 % Normal 0.9-7.0 [facility] Comment on above: Performed By: #### C BC ####[facility] Qulgourssh[address] [place], [place] [address]Dr. Garima Pulliam Erythrocyte distribution width (RBC) [Ratio] 13.3 % Normal 11.0-15.0 [facility] Comment on above: Performed By: #### C BC ####[facility] Aetuqrumpz[address] [place], [place] [address]Dr. Garima Pulliam Hematocrit (Bld) [Volume fraction] 43.7 % Normal 42.0-54.0 [facility] Comment on above: Performed By: #### C BC ####[facility] [address] [place] [address]Dr. Garima Pulliam Hemoglobin (Bld) [Mass/Vol] 14.7 g/dL Normal 14.0-18.0 [facility] Comment on above: Performed By: #### C BC ####[facility] [address]ty[address] [place] [address]Dr. Garima Pulliam IG # 0.03 10e3/ul Normal 0.00-0.03 [facility] Comment on above: Performed By: #### C BC ####[facility] Nectshqxuv[address] [place] [address]Dr. Garima Pulliam IG % 0.4 % Normal 0.0-0.5 [facility] Comment on above: Performed By: #### C BC ####[facility] Xsidtzzeoh[address] [place], [place] [address]Dr. Garima Pulliam LYMPH # 2.0 103/ul Normal 1.2-3.8 [facility] Comment on above: Performed By: #### C BC ####[facility] Yrzoejkngl[address] [place], [place] [address]Dr. Garima Pulliam Lymphocytes/100 WBC (Bld) 23.7 % Normal 20.5-60.0 [facility] Comment on above: Performed By: #### C BC ####[facility] Gsrldxynda[address] [place], [place] [address]Dr. Garima Pulliam MANUAL DIFF REQ NO Normal [facility] Comment on above: Performed By: #### C BC ####[facility] [address]zmzp[address] [place] [address]Dr. Gariam Pulliam MCH (RBC) [Entitic mass] 30.1 pg Normal 25.9-34.0 [facility] Comment on above: Performed By: #### C BC ####[facility] Wffdvybfsl5[address] [place], [place] [address]Dr. Garima Pulliam MCHC (RBC) [Mass/Vol] 33.6 g/dL Normal 29.9-35.2 [facility] Comment on above: Performed By: #### C BC ####[facility] Um[address]odej[address] [place] [address]DrAdalberto Pulliam MCV (RBC) [Entitic vol] 89.4 fL Normal 80.0-94.0 [facility] Comment on above: Performed By: #### C BC ####[facility] Yfhovqjclf[address] [place], [place] [address]DrAdalberto Pulliam MONO # 0.8 103/ul Normal 0.3-0.8 [facility] Comment on above: Performed By: #### C BC ####[facility] Ewecknnizg037[address] [place], [place] [address]DrAdalberto Pulliam Monocytes/100 WBC (Bld) 9.0 % Normal 1.7-12.0 [facility] Comment on above: Performed By: #### C BC ####[facility] Jeabmtcvte[address] [place], [place] [address]Dr. Garima Pulliam NEUT # 5.4 103/ul Normal 1.4-6.5 [facility] Comment on above: Performed By: #### C BC ####[facility] Fcxyywwfsb[address] [place], [place] [address]DrAdalberto Pulliam Neutrophils/100 WBC (Bld) 63.2 % Normal 43.0-75.0 [facility] Comment on above: Performed By: #### C BC ####[facility] X[address]fkgcehb[address] [place], [place] [address]DrAdalberto Pulliam Platelet mean volume (Bld) [Entitic vol] 9.0 fL Critically low 9.5-13.5 [facility] Comment on above: Performed By: #### C BC ####[facility] Jc[address]cdvn[address] [place], [place] [address]DrAdalberto Pulliam PLT 218 103/ul Normal 150-450 [facility] Comment on above: Performed By: #### C BC ####[facility] Ajxasnedcl[address] [place], [place] [address]DrAdalberto Pulliam RBC 4.89 106/ul Normal 4.70-6.10 [facility] Comment on above: Performed By: #### C BC ####[facility] [address] [place] [address]Dr. Garima Pulliam WBC 8.5 103/ul Normal 4.0-11.0 [facility] Comment on above: Performed By: #### C BC ####[facility] [address]jcwenmp[address] [place] [address]Dr. Garima Heraclio CPKon 03-06-2023 CK [Catalytic activity/Vol] 191 U/L Normal 39-308 [facility] Comment on above: Performed By: #### C MP, BNP, CK ####[facility] [address]xqxoumf[address] [place], [place] [address]Dr. Garima Pulliam PROF 14(COMP METB)on 023 Albumin [Mass/Vol] 3.6 g/dL Normal 3.4-5.0 [facility] Comment on above: Performed By: #### C MP, BNP, CK ####[facility] [address]qc[address] [place] [address]Dr. Garima Pulliam Albumin/Globulin [Mass ratio] 1.2 {ratio} Normal [facility] Comment on above: Performed By: #### C MP, BNP, CK ####[facility] F[address] [place] [address]Dr. Garima Pulliam ALP [Catalytic activity/Vol] 91 U/L Normal 46-116 [facility] Comment on above: Performed By: #### C MP, BNP, CK ####[facility] [address]mf[address] [place] [address]Dr. Garima Pulliam ALT [Catalytic activity/Vol] 33 U/L Normal 16-63 [facility] Comment on above: Performed By: #### C MP, BNP, CK ####[facility] Eyt[address]tenvng[address] [place] [address]Dr. Garima Pulliam Anion gap [Moles/Vol] 10.3 mmol/L Normal [facility] Comment on above: Performed By: #### C MP, BNP, CK ####[facility] [address]qob[address] [place] [address]Dr. Garima Pulliam AST [Catalytic activity/Vol] 17 U/L Normal 15-37 [facility] Comment on above: Performed By: #### C MP, BNP, CK ####[facility] [address]wxthcexcl[address] [place] [address]Dr. Garima Pulliam Bilirubin [Mass/Vol] 0.4 mg/dL Normal 0.2-1.0 [facility] Comment on above: Performed By: #### C MP, BNP, CK ####[facility] [address]mqarm[address]ng4[address] [place] [address]Dr. Garima Pulliam Calcium [Mass/Vol] 9.1 mg/dL Normal 8.5-10.1 [facility] Comment on above: Performed By: #### C MP, BNP, CK ####[facility] [address]fpoqjj[address] [place], [place] [address]Dr. Garima Pulliam Chloride [Moles/Vol] 102 mmol/L Normal 98-107 [facility] Comment on above: Performed By: #### C MP, BNP, CK ####[facility] [address]xoyb[address] [place] [address]Dr. Garima Pulliam CO2 [Moles/Vol] 29.7 mmol/L Normal 21.0-32.0 [facility] Comment on above: Performed By: #### C MP, BNP, CK ####[facility] [address]vr[address] [place] [address]Dr. Garima Pulliam Creatinine [Mass/Vol] 0.79 mg/dL Normal 0.70-1.30 [facility] Comment on above: Performed By: #### C MP, BNP, CK ####[facility] Htohsgager[address] [place] [address]Dr. Garima Pulliam EGFR-AF [place]IZ[place] >60 Normal >=60 [facility] Comment on above: Performed By: #### C MP, BNP, CK ####[facility] Zxfnnjooxj26[address] [place] [address]Dr. Garima Pulliam EGFR-NON AF CITIZEN OF [place] >60 Normal >=60 [facility] Comment on above: Performed By: #### C MP, BNP, CK ####[facility] Mppvogcsjf[address] [place] [address]Dr. Garima Pulliam Globulin (S) [Mass/Vol] 3.0 g/dL Normal [facility] Comment on above: Performed By: #### C MP, BNP, CK ####[facility] Hnypfcydyq[address] [place] [address]Dr. Garima Pulliam Glucose [Mass/Vol] 202 mg/dL Critically high 74-106 T [facility] Comment on above: Performed By: #### C MP, BNP, CK ####[facility] Adsocdzcqp[address] [place], [place] [address]Dr. Garima Pulliam Potassium [Moles/Vol] 4.0 mmol/L Normal 3.5-5.1 [facility] Comment on above: Performed By: #### C MP, BNP, CK ####[facility] Kbithfsuzz[address] [place], [place] [address]Dr. Garima Pulliam Protein [Mass/Vol] 6.6 g/dL Normal 6.4-8.2 [facility] Comment on above: Performed By: #### C MP, BNP, CK ####[facility] Lmxrloxqlr[address] [place], [place] [address]Dr. Garima Pulliam Sodium [Moles/Vol] 138 mmol/L Normal 136-145 [facility] Comment on above: Performed By: #### C MP, BNP, CK ####[facility] Tphcnpcdcq18[address] [place], [place] [address]Dr. Garima Pulliam Urea nitrogen [Mass/Vol] 10.0 mg/dL Normal 7.0-18.0 [facility] Comment on above: Performed By: #### C MP, BNP, CK ####[facility] Lctizmvznz[address] [place], [place] [address]Dr. Garima Pulliam Urea nitrogen/Creatinine [Mass ratio] 12.7 mg/mg Normal [facility] Comment on above: Performed By: #### C MP, BNP, CK ####[facility] Qaoimddrat22[address] [place], [place] [address]DrAdalberto Pulliam US VERONICA DOP LEG BILon 023 US VERONICA DOP LEG BENOIT Normal [facility] CBC AUTO DIFFon 01-13-2023 BASO # 0.0 103/ul Normal 0.0-0.1 [facility] Comment on above: Performed By: #### C BC ####[facility] Fxwyrlqnbj2[address] [place] [address]DrAdalberto Pulliam Basophils/100 WBC (Bld) 0.0 % Critically low 0.2-2.0 [facility] Comment on above: Performed By: #### C BC ####[facility] Acihdmgbmb027[address] [place] [address]DrAdalberto Pulliam EO # 0.0 103/ul Normal 0.0-0.7 [facility] Comment on above: Performed By: #### C BC ####[facility] Hskjwllecd6625 [place] [address]DrAdalberto Pulliam Eosinophils/100 WBC (Bld) 0.0 % Critically low 0.9-7.0 [facility] Comment on above: Performed By: #### C BC ####[facility] Equnvvqcjv9463 [place] [address]DrAdalberto Pulliam Erythrocyte distribution width (RBC) [Ratio] 13.2 % Normal 11.0-15.0 [facility] Comment on above: Performed By: #### C BC ####[facility] Ycyjaelbpv6212 [place] [address]DrAdalberto Pulliam Hematocrit (Bld) [Volume fraction] 46.7 % Normal 42.0-54.0 [facility] Comment on above: Performed By: #### C BC ####[facility] Hyizurojcb5029 [place] [address]DrAdalberto Pulliam Hemoglobin (Bld) [Mass/Vol] 15.6 g/dL Normal 14.0-18.0 [facility] Comment on above: Performed By: #### C BC ####[facility] Yzhaicisjv4686 [place] [address]DrAdalberto uPlliam IG # 0.01 10e3/ul Normal 0.00-0.03 [facility] Comment on above: Performed By: #### C BC ####[facility] Uqbsllyxfv69[address] [place] [address]DrAdalberto Chapisrenu Pulliam IG % 0.2 % Normal 0.0-0.5 [facility] Comment on above: Performed By: #### C BC ####[facility] Kkpfebmnub76[address] [place] [id number] Chapisrenu Pulliam LYMPH # 0.8 103/ul Critically low 1.2-3.8 [facility] Comment on above: Performed By: #### C BC ####[facility] Eajzweimki0272 [place] [address]DrAdalberto Pulliam Lymphocytes/100 WBC (Bld) 12.7 % Critically low 20.5-60.0 [facility] Comment on above: Performed By: #### C BC ####[facility] Tqslepfzzu50[address] [place] [address]DrAdalberto Pulliam MANUAL DIFF REQ NO Normal [facility] Comment on above: Performed By: #### C BC ####[facility] Izekvptzkp9203 [place] [phone] Garima Heraclio MCH (RBC) [Entitic mass] 30.2 pg Normal 25.9-34.0 [facility] Comment on above: Performed By: #### C BC ####[facility] Vpielsfswh86[address] [place] [address]DrAdalberto Chapisrenu Pulliam MCHC (RBC) [Mass/Vol] 33.4 g/dL Normal 29.9-35.2 [facility] Comment on above: Performed By: #### C BC ####[facility] Ntadqhpkeg5851 [place] [phone] Pulliam MCV (RBC) [Entitic vol] 90.3 fL Normal 80.0-94.0 [facility] Comment on above: Performed By: #### C BC ####[facility] Xhbrgysmmp6016 [place] [phone] Pulliam MONO # 0.1 103/ul Critically low 0.3-0.8 [facility] Comment on above: Performed By: #### C BC ####[facility] Zhidoymwok6130 [place] [address]Dr. Garima Pulliam Monocytes/100 WBC (Bld) 0.9 % Critically low 1.7-12.0 [facility] Comment on above: Performed By: #### C BC ####[facility] Cqdlcnqqwn2691 [place] [address]Dr. Garima Pulliam NEUT # 5.6 103/ul Normal 1.4-6.5 [facility] Comment on above: Performed By: #### C BC ####[facility] Pxhdnsampx9747 [place] [address]Dr. Garima Pulliam Neutrophils/100 WBC (Bld) 86.2 % Critically high 43.0-75.0 [facility] Comment on above: Performed By: #### C BC ####[facility] Wzqkliwhlr5515 [place] [address]Dr. Garima Pulliam Platelet mean volume (Bld) [Entitic vol] 9.1 fL Critically low 9.5-13.5 [facility] Comment on above: Performed By: #### C BC ####[facility] Kmiwhzhsuy[address] [place], [place] [address]Dr. Garima Pulliam PLT 169 103/ul Normal 150-450 [facility] Comment on above: Performed By: #### C BC ####[facility] Nhefyzvuhj60[address] [place] [address]Dr. Garima Pulliam RBC 5.17 106/ul Normal 4.70-6.10 [facility] Comment on above: Performed By: #### C BC ####[facility] Mnhqzkwomo7987 [place] [phone]. Garima Pulliam WBC 6.5 103/ul Normal 4.0-11.0 [facility] Comment on above: Performed By: #### C BC ####[facility] Exqyfuxxzr[address] [place], [place] [address]Dr. Garima Pulliam D-DIMERon 01-13-2023 D-DIMER 0.41 mg/L FEU Normal <=0.59 [facility] Comment on above: Performed By: #### D DIM ####[facility] Wgmombaezn38[address] [place] [address]Dr. Garima Pulliam D-DIMER COMMENTS SEE BELOW Normal [facility] Comment on above: Result Comment: Incr [...] generalized hospitalization. Performed By: #### D DIM ####[facility] Lbxpdpiymj8141 [place] [address]Dr. Garima Pulliam PROF 14(COMP METB)on 023 Albumin [Mass/Vol] 3.4 g/dL Normal 3.4-5.0 [facility] Comment on above: Performed By: #### C MP ####[facility] Vqsgfdtnxn0392 [place] [address]Dr. Garima Pulliam Albumin/Globulin [Mass ratio] 1.3 {ratio} Normal [facility] Comment on above: Performed By: #### C MP ####[facility] Nilgwrwlor1434 [place] [address]Dr. Garima Pulliam ALP [Catalytic activity/Vol] 83 U/L Normal 46-116 [facility] Comment on above: Performed By: #### C MP ####[facility] Qpqsoenodt0877 [place] [address]Dr. Garima Pulliam ALT [Catalytic activity/Vol] 25 U/L Normal 16-63 [facility] Comment on above: Performed By: #### C MP ####[facility] Diirkymnae70[address] [place] [address]Dr. Garima Pulliam Anion gap [Moles/Vol] 14.5 mmol/L Normal [facility] Comment on above: Performed By: #### C MP ####[facility] Wicskeqrml8882 [place] [phone]. Garima Pulliam AST [Catalytic activity/Vol] 19 U/L Normal 15-37 [facility] Comment on above: Performed By: #### C MP ####[facility] Wavymjertu8558 [place] [phone]. Garima Pulliam Bilirubin [Mass/Vol] 0.4 mg/dL Normal 0.2-1.0 [facility] Comment on above: Performed By: #### C MP ####[facility] Rmzevxjrvn3199 [place] [phone]. Garima Pulliam Calcium [Mass/Vol] 8.7 mg/dL Normal 8.5-10.1 [facility] Comment on above: Performed By: #### C MP ####[facility] Fnffocyfut7211 [place] [phone]. Garima Pulliam Chloride [Moles/Vol] 104 mmol/L Normal 98-107 [facility] Comment on above: Performed By: #### C MP ####[facility] Mjszjsgwjh5614 [place] [phone]. Garima Pulliam CO2 [Moles/Vol] 24.5 mmol/L Normal 21.0-32.0 [facility] Comment on above: Performed By: #### C MP ####[facility] Dijvslyfpj2844 [place] [phone]. Garima Pulliam Creatinine [Mass/Vol] 0.70 mg/dL Normal 0.70-1.30 [facility] Comment on above: Performed By: #### C MP ####[facility] Ollsfsxqzy2932 [place] [phone]. Garima Pulliam EGFR-AF [place] >60 Normal >=60 [facility] Comment on above: Performed By: #### C MP ####[facility] Gpqbukbslo4476 [place] [phone]. Garima Pulliam EGFR-NON AF [place]IZ[place] OF [place] >60 Normal >=60 The [facility] Comment on above: Performed By: #### C MP ####[facility] [address] [place], [place] [id number]. Garima Pulliam Globulin (S) [Mass/Vol] 2.6 g/dL Normal [facility] Comment on above: Performed By: #### C MP ####[facility] Sggjpehfyg[address] [place], [place] [address]Dr. Garima Pulliam Glucose [Mass/Vol] 196 mg/dL Critically high 74-106 T [facility] Comment on above: Performed By: #### C MP ####[facility] Fffznfkgom[address] [place], [place] [address]Dr. Garima Pulliam Potassium [Moles/Vol] 4.0 mmol/L Normal 3.5-5.1 [facility] Comment on above: Performed By: #### C MP ####[facility] Ytdwapqnsn[address] [place], [place] [address]Dr. Garima Pulliam Protein [Mass/Vol] 6.0 g/dL Critically low 6.4-8.2 [facility] Comment on above: Performed By: #### C MP ####[facility] Rhszjicabk[address] [place], [place] [address]Dr. Garima Pulliam Sodium [Moles/Vol] 139 mmol/L Normal 136-145 [facility] Comment on above: Performed By: #### C MP ####[facility] Eyrvdlesdq5865[address] [place], [place] [address]Dr. Garima Pulliam Urea nitrogen [Mass/Vol] 7.0 mg/dL Normal 7.0-18.0 [facility] Comment on above: Performed By: #### C MP ####[facility] Agfzmgyfxw147[address] [place], [place] [address]Dr. Garima Pulliam Urea nitrogen/Creatinine [Mass ratio] 10.0 mg/mg Normal [facility] Comment on above: Performed By: #### C MP ####[facility] Wmdwrlywro74[address] [place], [place] [address]Dr. Garima Pulliam BNPon 01-12-2023 Natriuretic peptide B (Bld) [Mass/Vol] 141.0 pg/mL Normal <=900.0 [facility] Comment on above: Performed By: #### C MP, BNP, HSTROPN ####[facility] Jqyliglabk8354 [place] [phone]. Garima Heraclio CBC AUTO DIFFon 01-12-2023 BASO # 0.0 103/ul Normal 0.0-0.1 [facility] Comment on above: Performed By: #### C BC ####[facility] Idnkrkukiw[address] [place], [place] [id number]. Garima Pulliam Basophils/100 WBC (Bld) 0.2 % Normal 0.2-2.0 The [facility] Comment on above: Performed By: #### C BC ####[facility] Bajfzupqpy99[address] [place], [place] [address]Dr. Garima Pulliam EO # 0.2 103/ul Normal 0.0-0.7 The [facility] Comment on above: Performed By: #### C BC ####[facility] Crgrbmjqbb9299[address] [place], [place] [address]Dr. Garima Pulliam Eosinophils/100 WBC (Bld) 2.7 % Normal 0.9-7.0 The [facility] Comment on above: Performed By: #### C BC ####[facility] Vghgiiyyfh[address] [place], [place] [address]Dr. Chapisrenu Pulliam Erythrocyte distribution width (RBC) [Ratio] 13.3 % Normal 11.0-15.0 The [facility] Comment on above: Performed By: #### C BC ####[facility] Ytecnglfzi[address] [place], [place] [address]Dr. Garima Pulliam Hematocrit (Bld) [Volume fraction] 42.3 % Normal 42.0-54.0 [facility] Comment on above: Performed By: #### C BC ####[facility] Mxvqyatubp[address] [place], [place] [address]Dr. Chapisrenu Pulliam Hemoglobin (Bld) [Mass/Vol] 14.3 g/dL Normal 14.0-18.0 [facility] Comment on above: Performed By: #### C BC ####[facility] [address]dqtajxdkx[address] [place], [place] [address]Dr. Garima Pulliam IG # 0.02 10e3/ul Normal 0.00-0.03 [facility] Comment on above: Performed By: #### C BC ####[facility] Lvvueueddz6394 [place] [phone]. Chapisrenu Pulliam IG % 0.2 % Normal 0.0-0.5 [facility] Comment on above: Performed By: #### C BC ####[facility] Lyrzvedhow8677 [place] [phone]. Garima Pulliam LYMPH # 2.6 103/ul Normal 1.2-3.8 [facility] Comment on above: Performed By: #### C BC ####[facility] Tmzdafswvc9742 [place] [address]Dr. Chapisrenu Pulliam Lymphocytes/100 WBC (Bld) 29.6 % Normal 20.5-60.0 [facility] Comment on above: Performed By: #### C BC ####[facility] Mqyefmztdp[address] [place] [address]Dr. Garima Pulliam MANUAL DIFF REQ NO Normal [facility] Comment on above: Performed By: #### C BC ####[facility] Gvsydhstvh7687 [place] [address]Dr. Garima Pulliam MCH (RBC) [Entitic mass] 30.2 pg Normal 25.9-34.0 [facility] Comment on above: Performed By: #### C BC ####[facility] Jtabbzyuns9792 [place] [address]Dr. Garima Pulliam MCHC (RBC) [Mass/Vol] 33.8 g/dL Normal 29.9-35.2 [facility] Comment on above: Performed By: #### C BC ####[facility] Ekunsvdhqo20[address] [place], [place] [address]Dr. Garima Pulliam MCV (RBC) [Entitic vol] 89.2 fL Normal 80.0-94.0 [facility] Comment on above: Performed By: #### C BC ####[facility] Abmkluuvpk[address] [place], [place] [address]Dr. Garima Pulliam MONO # 0.7 103/ul Normal 0.3-0.8 [facility] Comment on above: Performed By: #### C BC ####[facility] Xrojavshlt7421 [place] [phone]. Garima Pulliam Monocytes/100 WBC (Bld) 8.3 % Normal 1.7-12.0 [facility] Comment on above: Performed By: #### C BC ####[facility] Cgehovwyxg9052 [place] [phone]. Garima Pulliam NEUT # 5.1 103/ul Normal 1.4-6.5 [facility] Comment on above: Performed By: #### C BC ####[facility] Ksvmiponod6052 [place] [phone]. Garima Pulliam Neutrophils/100 WBC (Bld) 59.0 % Normal 43.0-75.0 [facility] Comment on above: Performed By: #### C BC ####[facility] Tkbuhqhqmm6362 [place] [address]Dr. Garima Pulliam Platelet mean volume (Bld) [Entitic vol] 8.7 fL Critically low 9.5-13.5 [facility] Comment on above: Performed By: #### C BC ####[facility] Pmjwvxwilf0095 [place] [phone]. Garima Pulliam PLT 182 103/ul Normal 150-450 [facility] Comment on above: Performed By: #### C BC ####[facility] Dlbszwjdcg5670 [place] [phone]. Garima Pulliam RBC 4.74 106/ul Normal 4.70-6.10 [facility] Comment on above: Performed By: #### C BC ####[facility] Mmtgezswmk5122 [place] [phone]. Garima Pulliam WBC 8.7 103/ul Normal 4.0-11.0 [facility] Comment on above: Performed By: #### C BC ####[facility] Sognnxxihh0288 [place] [phone]. Garima Pulliam [facility]on 12-25 SARS-CoV-2 (COVID-19) RNA MARIE+probe Ql (Unsp spec) Not detected Normal NOT DETECTED [facility] Comment on above: Result Comment: When [...] for this test is supported by the Telephone Interceptor Operator of Health and Human Service's declaration that [...] be used). Performed By: #### C VDTB ####[facility] Wdfcutcjxc0748 [place] [address]Dr. Garima Pulliam PROF 14(COMP METB)on 023 Albumin [Mass/Vol] 3.6 g/dL Normal 3.4-5.0 [facility] Comment on above: Performed By: #### C MP, BNP, HSTROPN ####[facility] Rlmzjqkxke5985 [place] [address]Dr. Garima Pulliam Albumin/Globulin [Mass ratio] 1.5 {ratio} Normal [facility] Comment on above: Performed By: #### C MP, BNP, HSTROPN ####[facility] Auzhslbjxb7[address] [place] [address]Dr. Garima Pulliam ALP [Catalytic activity/Vol] 79 U/L Normal 46-116 [facility] Comment on above: Performed By: #### C MP, BNP, HSTROPN ####[facility] Jefkfnqbiy9304 [place] [address]Dr. Garima Pulliam ALT [Catalytic activity/Vol] 27 U/L Normal 16-63 [facility] Comment on above: Performed By: #### C MP, BNP, HSTROPN ####[facility] Kkcziqcdam0057 [place] [address]Dr. Garima Pulliam Anion gap [Moles/Vol] 11.7 mmol/L Normal [facility] Comment on above: Performed By: #### C MP, BNP, HSTROPN ####[facility] Muqdqojndy9603 [place] [address]Dr. Garima Pulliam AST [Catalytic activity/Vol] 21 U/L Normal 15-37 [facility] Comment on above: Performed By: #### C MP, BNP, HSTROPN ####[facility] Tikcxaorfr6364 [place] [address]Dr. Garima Pulliam Bilirubin [Mass/Vol] 0.3 mg/dL Normal 0.2-1.0 [facility] Comment on above: Performed By: #### C MP, BNP, HSTROPN ####[facility] Wuklraspup[address] [place], [place] [address]Dr. Garima Pulliam Calcium [Mass/Vol] 8.9 mg/dL Normal 8.5-10.1 [facility] Comment on above: Performed By: #### C MP, BNP, HSTROPN ####[facility] Atrvbhqunq[address] [place], [place] [address]Dr. Garima Pulliam Chloride [Moles/Vol] 107 mmol/L Normal 98-107 [facility] Comment on above: Performed By: #### C MP, BNP, HSTROPN ####[facility] Ngqmrqedcs[address] [place], [place] [address]Dr. Garima Pulliam CO2 [Moles/Vol] 26.0 mmol/L Normal 21.0-32.0 [facility] Comment on above: Performed By: #### C MP, BNP, HSTROPN ####[facility] Jnnzscijhy90[address] [place], [place] [address]Dr. Garima Pulliam Creatinine [Mass/Vol] 0.65 mg/dL Critically low 0.70-1.30 [facility] Comment on above: Performed By: #### C MP, BNP, HSTROPN ####[facility] Cycjiubniv57[address] [place] [address]Dr. Garima Pulliam EGFR-AF [place] >60 Normal >=60 [facility] Comment on above: Performed By: #### C MP, BNP, HSTROPN ####[facility] Dzdrgkiavl5495 [place] [address]Dr. Garima Pulliam EGFR-NON AF [place]IZEN OF [place] >60 Normal >=60 [facility] Comment on above: Performed By: #### C MP, BNP, HSTROPN ####[facility] Pjgiqzjari8[address] [place], [place] [address]Dr. Garima Pulliam Globulin (S) [Mass/Vol] 2.4 g/dL Normal [facility] Comment on above: Performed By: #### C MP, BNP, HSTROPN ####[facility] Ovfvdmndns5[address] [place], [place] [address]Dr. Garima Pulliam Glucose [Mass/Vol] 85 mg/dL Normal 74-106 [facility] Comment on above: Performed By: #### C MP, BNP, HSTROPN ####[facility] Eeuerdfhxe[address] [place], [place] [address]Dr. Garima Pulliam Potassium [Moles/Vol] 3.7 mmol/L Normal 3.5-5.1 [facility] Comment on above: Performed By: #### C MP, BNP, HSTROPN ####[facility] Ingknmhkzh[address] [place], [place] [address]Dr. Garima Pulliam Protein [Mass/Vol] 6.0 g/dL Critically low 6.4-8.2 [facility] Comment on above: Performed By: #### C MP, BNP, HSTROPN ####[facility] Sngvzztvfa[address] [place], [place] [address]Dr. Garima Pulliam Sodium [Moles/Vol] 141 mmol/L Normal 136-145 [facility] Comment on above: Performed By: #### C MP, BNP, HSTROPN ####[facility] Ryifzzigdt47[address] [place], [place] [address]Dr. Garima Pulliam Urea nitrogen [Mass/Vol] 5.0 mg/dL Critically low 7.0-18.0 [facility] Comment on above: Performed By: #### C MP, BNP, HSTROPN ####[facility] Bkceqkbfqq9943 [place] [address]Dr. Garima Pulliam Urea nitrogen/Creatinine [Mass ratio] 7.7 mg/mg Normal [facility] Comment on above: Performed By: #### C MP, BNP, HSTROPN ####[facility] G[address]mer[address]aq[address] [place], [place] [address]Dr. Garima Pulliam PROTIMEon 01-12-2023 INR Coag (PPP) [Relative time] 1.16 {INR} Normal [facility] Comment on above: Performed By: #### P TT, PT ####[facility] Ehxch[address] [place] [address]. Garima Pulliam INR GUIDELINES SEE BELOW Normal [facility] Comment on above: Result Comment: WESLEY RED INR: 2.0 - 3.0 CONDITIONS NOT LISTED BELOW 2.5 - 3.5 FOR PROSTHETIC HEART VALVE REPLACEMENT 2.5 - 3.5 RECURRENT THROMBOSIS Performed By: #### P TT, PT ####[facility] C[address] [place], [place] [address]Dr. Garima Pulliam PT Coag (PPP) [Time] 12.2 s Critically high 9.0-11.6 [facility] Comment on above: Performed By: #### P TT, PT ####[facility] Offwaebqfg[address] [place], [place] [address]Dr. Garima Pulliam PTTon 01-12-2023 aPTT Coag (Bld) [Time] 29.1 s Normal 22.3-36.2 [facility] Comment on above: Performed By: #### P TT, PT ####[facility] Hwvzok[address] [place], [place] [address]Dr. Garima Pulliam TROPONIN, HIGH SENSITIVITYon 01-12-2023 HSTROP 10.3 pg/mL Normal 4.0-76.1 [facility] Comment on above: Result Comment: CUT- OFF POINTS HAVE BEEN ESTABLISHED BASED ON THE FOURTH UNIVERSAL DEFINITIONS OF MYOCARDIALINFARCTION. THE UPPER REFERENCE LIMIT (URL) OF TROPONIN, DEFINED THE 99TH PERCENTILE OFcTnI DISTRIBUTION IN A REFERENCE POPULATION, HAS BEEN CONFIRMED THE DECISION THRESHOLDFOR [place] DIAGNOSIS. Performed By: #### H STROPN ####[facility] [address] [place] [address]Dr. Garima Pulliam HSTROP 9.2 pg/mL Normal 4.0-76.1 [facility] Comment on above: Result Comment: CUT- OFF POINTS HAVE BEEN ESTABLISHED BASED ON THE FOURTH UNIVERSAL DEFINITIONS OF MYOCARDIALINFARCTION. THE UPPER REFERENCE LIMIT (URL) OF TROPONIN, DEFINED THE 99TH PERCENTILE OFcTnI DISTRIBUTION IN A REFERENCE POPULATION, HAS BEEN CONFIRMED THE DECISION THRESHOLDFOR [place] DIAGNOSIS. Performed By: #### C MP, BNP, HSTROPN ####[facility] [address]fz[address]kuiau[address] [place] [address]Dr. Garima Pulliam XR CHEST 1 Von 01-12-2023 XR CHEST 1 V Normal [facility] XR CHEST 1 Von 01-01-2023 XR CHEST 1 V Normal [facility] CARDIAC NASH 3-6on 3 CK [Catalytic activity/Vol] 196 U/L Normal 39-308 [facility] Comment on above: Performed By: #### C MREP ####[facility] Ixb[address]myht[address] [place] [address]Dr. Garima Pulliam CK.MB [Mass/Vol] 7.41 ng/mL Critically high <=3.60 [facility] Comment on above: Performed By: #### C MREP ####[facility] Ofjptlqjbn[address] [place] [address]Dr. Gairma Pulliam HSTROP 10.3 pg/mL Normal 4.0-76.1 [facility] Comment on above: Result Comment: CUT- OFF POINTS HAVE BEEN ESTABLISHED BASED ON THE FOURTH UNIVERSAL DEFINITIONS OF MYOCARDIALINFARCTION. THE UPPER REFERENCE LIMIT (URL) OF TROPONIN, DEFINED THE 99TH PERCENTILE OFcTnI DISTRIBUTION IN A REFERENCE POPULATION, HAS BEEN CONFIRMED THE DECISION THRESHOLDFOR [place] DIAGNOSIS. Performed By: #### C MREP ####[facility] [address] [place] [address]Dr. Garima Pulliam XR CHEST 1 Von 12-26-2022 XR CHEST 1 V Normal [facility] BNPon 12-25-2022 Natriuretic peptide B (Bld) [Mass/Vol] 98.0 pg/mL Normal <=900.0 [facility] Comment on above: Performed By: #### B SOFTWARE QUALITY ASSURANCE ANALYST, BMP, CMADM ####[facility] [address]rm[address]ows[address] [place] [id number]. Garima Pulliam CARDIAC NASH ADMITon 023 CK [Catalytic activity/Vol] 208 U/L Normal 39-308 [facility] Comment on above: Performed By: #### B SOFTWARE QUALITY ASSURANCE ANALYST, BMP, CMADM ####[facility] [address]uyevosigp[address] [place] [address]Dr. Garima Pulliam CK.MB [Mass/Vol] 7.63 ng/mL Critically high <=3.60 [facility] Comment on above: Performed By: #### B SOFTWARE QUALITY ASSURANCE ANALYST, BMP, CMADM ####[facility] Hjsdygchve[address] [place] [address]Dr. Garima Pulliam HSTROP 8.8 pg/mL Normal 4.0-76.1 [facility] Comment on above: Result Comment: CUT- OFF POINTS HAVE BEEN ESTABLISHED BASED ON THE FOURTH UNIVERSAL DEFINITIONS OF MYOCARDIALINFARCTION. THE UPPER REFERENCE LIMIT (URL) OF TROPONIN, DEFINED THE 99TH PERCENTILE OFcTnI DISTRIBUTION IN A REFERENCE POPULATION, HAS BEEN CONFIRMED THE DECISION THRESHOLDFOR [place] DIAGNOSIS. Performed By: #### B SOFTWARE QUALITY ASSURANCE ANALYST, BMP, CMADM ####[facility] Lpskh[address]ou[address] [place] [address]Dr. Garima Pulliam DORIS 83 ng/mL Normal 16-96 [facility] Comment on above: Performed By: #### B SOFTWARE QUALITY ASSURANCE ANALYST, BMP, CMADM ####[facility] Utqkvwotwz[address] [place] [phone]. Garima Pulliam CBC AUTO DIFFon 12-25-2022 BASO # 0.0 103/ul Normal 0.0-0.1 [facility] Comment on above: Performed By: #### C BC ####[facility] Pkw[address]gfon[address] [place] [address]Dr. Garima Pulliam Basophils/100 WBC (Bld) 0.0 % Critically low 0.2-2.0 [facility] Comment on above: Performed By: #### C BC ####[facility] Ydofosq[address] [place], [place] [address]Dr. Garima Pulliam EO # 0.0 103/ul Normal 0.0-0.7 [facility] Comment on above: Performed By: #### C BC ####[facility] Rjfnofnps[address] [place], [place] [address]Dr. Garima Pulliam Eosinophils/100 WBC (Bld) 0.7 % Critically low 0.9-7.0 [facility] Comment on above: Performed By: #### C BC ####[facility] Wffabxctij[address] [place], [place] [address]Dr. Garima Pulliam Erythrocyte distribution width (RBC) [Ratio] 13.4 % Normal 11.0-15.0 [facility] Comment on above: Performed By: #### C BC ####[facility] Hbeeoxagpc[address] [place], [place] [address]Dr. Garima Pulliam Hematocrit (Bld) [Volume fraction] 42.9 % Normal 42.0-54.0 [facility] Comment on above: Performed By: #### C BC ####[facility] Xntkirnwto[address] [place], [place] [address]Dr. Chapisrenu Pulliam Hemoglobin (Bld) [Mass/Vol] 14.4 g/dL Normal 14.0-18.0 [facility] Comment on above: Performed By: #### C BC ####[facility] Eyiuzqyxml[address] [place], [place] [address]Dr. Garima Pulliam IG # 0.00 10e3/ul Normal 0.00-0.03 [facility] Comment on above: Performed By: #### C BC ####[facility] Fowqxzlgau[address] [place], [place] [address]Dr. Garima Pulliam IG % 0.0 % Normal 0.0-0.5 [facility] Comment on above: Performed By: #### C BC ####[facility] D[address]mdxfnwyc[address] [place], [place] [address]Dr. Garima Pulliam LYMPH # 2.4 103/ul Normal 1.2-3.8 [facility] Comment on above: Performed By: #### C BC ####[facility] Hvcborevit[address] [place] [address]Dr. Garima Pulliam Lymphocytes/100 WBC (Bld) 29.2 % Normal 20.5-60.0 [facility] Comment on above: Performed By: #### C BC ####[facility] [address]pos[address] [place] [address]DrAdalberto Pulliam MANUAL DIFF REQ NO Normal [facility] Comment on above: Performed By: #### C BC ####[facility] Tjwniyzftv6[address] [place] [address]Dr. Garima Pulliam MCH (RBC) [Entitic mass] 30.7 pg Normal 25.9-34.0 [facility] Comment on above: Performed By: #### C BC ####[facility] Wemmbe[address] [place], [place] [address]Dr. Garima Pulilam MCHC (RBC) [Mass/Vol] 33.6 g/dL Normal 29.9-35.2 [facility] Comment on above: Performed By: #### C BC ####[facility] Sah[address] [place], [place] [address]DrAdalberto Pulliam MCV (RBC) [Entitic vol] 91.5 fL Normal 80.0-94.0 [facility] Comment on above: Performed By: #### C BC ####[facility] Ltdtygbqfy[address] [place] [address]Dr. Garima Pulliam MONO # 0.0 103/ul Critically low 0.3-0.8 [facility] Comment on above: Performed By: #### C BC ####[facility] Vuqjbhlqsl[address] [place], [place] [address]DrAdalberto Pulliam Monocytes/100 WBC (Bld) 8.0 % Normal 1.7-12.0 [facility] Comment on above: Performed By: #### C BC ####[facility] Up[address]uns[address] [place], [place] [address]DrAdalberto Pulliam NEUT # 5.1 103/ul Normal 1.4-6.5 [facility] Comment on above: Performed By: #### C BC ####[facility] Iieufffpfs[address] [place] [phone]. Garima Pulliam Neutrophils/100 WBC (Bld) 62.8 % Normal 43.0-75.0 [facility] Comment on above: Performed By: #### C BC ####[facility] Ow[address]ub[address] [place] [phone]. Garima Pulliam Platelet mean volume (Bld) [Entitic vol] 8.6 fL Critically low 9.5-13.5 [facility] Comment on above: Performed By: #### C BC ####[facility] [address]ns[address]raxg[address] [place] [phone]. Garima Pulliam PLT 200 103/ul Normal 150-450 [facility] Comment on above: Performed By: #### C BC ####[facility] Sndwgaablz[address] [place] [phone]. Garima Pulliam RBC 4.69 106/ul Critically low 4.70-6.10 [facility] Comment on above: Performed By: #### C BC ####[facility] [address] [place] [phone]. Garima Pulliam WBC 8.2 103/ul Normal 4.0-11.0 [facility] Comment on above: Performed By: #### C BC ####[facility] I[address]leyf[address] [place] [phone]. Garima Pulliam [facility]on SARS-CoV-2 (COVID-19) RNA MARIE+probe Ql (Unsp spec) Not detected Normal NOT DETECTED [facility] Comment on above: Result Comment: When [...] for this test is supported by the Telephone Interceptor Operator of Health and Human Service's declaration that [...] be used). Performed By: #### C VDTBH ####[facility] B[address]xd[address]ms[address] [place], [place] [address]Dr. Garima Pulliam INFLUENZA A AND B AGon 12-25 INFLUANE SEE BELOW Normal [facility] Comment on above: Result Comment: Nega tive for Flu A protein angiten. Infection due to Flu A cannot be ruled out. Flu A angiten in the sample may be below the detection limit of the test. Performed By: #### I NFLUAB ####[facility] [address] [place] [address]. Garima Pulliam INFLUBNEGH SEE BELOW Normal [facility] Comment on above: Result Comment: Nega tive for Flu B protein antigen. Infection due to Flu B cannot be ruled out. Flu B antigen in the sample may be below the detection limit of the test. Performed By: #### I NFLUAB ####[facility] P[address] [place], [place] [address]Dr. renu Pulliam INFLUENZA A AG Negative Normal NEGATIVE SEE COMMENT [facility] Comment on above: Performed By: #### I NFLUAB ####[facility] Mutertjabl[address] [place], [place] [address]Dr. Garima Pulliam INFLUENZA B AG Negative Normal NEGATIVE SEE COMMENT [facility] Comment on above: Performed By: #### I NFLUAB ####[facility] L[address]iz[address] [place] [address]. Garima Pulliam PROF CHEM 8 (BAS METB)on Anion gap [Moles/Vol] 11.1 mmol/L Normal [facility] Comment on above: Performed By: #### B SOFTWARE QUALITY ASSURANCE ANALYST, BMP, CMADM ####[facility] Uzd[address]oxkn[address] [place] [phone]. Garima Pulliam Calcium [Mass/Vol] 8.5 mg/dL Normal 8.5-10.1 [facility] Comment on above: Performed By: #### B SOFTWARE QUALITY ASSURANCE ANALYST, BMP, CMADM ####[facility] Nyfffmwljp[address] [place] [phone]. Garima Pulliam Chloride [Moles/Vol] 106 mmol/L Normal 98-107 [facility] Comment on above: Performed By: #### B SOFTWARE QUALITY ASSURANCE ANALYST, BMP, CMADM ####[facility] [address] [place] [address]Dr. Garima Pulliam CO2 [Moles/Vol] 27.4 mmol/L Normal 21.0-32.0 [facility] Comment on above: Performed By: #### B SOFTWARE QUALITY ASSURANCE ANALYST, BMP, CMADM ####[facility] Ansawtkmrh[address] [place] [address]Dr. Garima Pulliam Creatinine [Mass/Vol] 0.65 mg/dL Critically low 0.70-1.30 [facility] Comment on above: Performed By: #### B SOFTWARE QUALITY ASSURANCE ANALYST, BMP, CMADM ####[facility] Hdgbrgahnk[address] [place] [address]Dr. Garima Pulliam EGFR-AF CITIZEN [place] >60 Normal >=60 [facility] Comment on above: Performed By: #### B SOFTWARE QUALITY ASSURANCE ANALYST, BMP, CMADM ####[facility] L[address]eplffiq[address] [place] [address]Dr. Garima Pulliam EGFR-NON AF CITIZEN OF [place] >60 Normal >=60 [facility] Comment on above: Performed By: #### B SOFTWARE QUALITY ASSURANCE ANALYST, BMP, CMADM ####[facility] P[address]ltbgeut[address] [place] [address]Dr. Garima Pulliam Glucose [Mass/Vol] 140 mg/dL Critically high 74-106 [facility] Comment on above: Performed By: #### B SOFTWARE QUALITY ASSURANCE ANALYST, BMP, CMADM ####[facility] [address]qheohbx[address] [place] [address]Dr. Garima Pulliam Potassium [Moles/Vol] 3.5 mmol/L Normal 3.5-5.1 [facility] Comment on above: Performed By: #### B SOFTWARE QUALITY ASSURANCE ANALYSTMARVIN, NANCY ####[facility] [address]fquuxvp[address] [place] [address]Dr. Chapisrenu Pulliam Sodium [Moles/Vol] 141 mmol/L Normal 136-145 [facility] Comment on above: Performed By: #### B SOFTWARE QUALITY ASSURANCE ANALYSTMARVIN, CMAANA ROSA ####[facility] Jsmfzztokb[address] [place] [address]Dr. Garima Pulliam Urea nitrogen [Mass/Vol] 8.0 mg/dL Normal 7.0-18.0 [facility] Comment on above: Performed By: #### B MARVIN FRENCH CMADM ####[facility] Kl[address]tehj[address] [place] [address]Dr. Garima Pulliam Urea nitrogen/Creatinine [Mass ratio] 12.3 mg/mg Normal [facility] Comment on above: Performed By: #### B MARVIN FRENCH CMAANA ROSA ####[facility] Tuonrfoybz[address] [place] [address]Dr. Garima Heraclio CARDIAC NASH ADMITon 023 CK [Catalytic activity/Vol] 165 U/L Normal 39-308 [facility] Comment on above: Performed By: #### B NANCY HERNANDEZ ####[facility] [address] [place], [place] [address]Dr. Garima Pulliam CK.MB [Mass/Vol] 6.48 ng/mL Critically high <=3.60 [facility] Comment on above: Performed By: #### B MP, CMADM ####[facility] [address]jz[address] [place], [place] [address]Dr. Garima Heraclio HSTROP 11.7 pg/mL Normal 4.0-76.1 [facility] Comment on above: Result Comment: CUT- OFF POINTS HAVE BEEN ESTABLISHED BASED ON THE FOURTH UNIVERSAL DEFINITIONS OF MYOCARDIALINFARCTION. THE UPPER REFERENCE LIMIT (URL) OF TROPONIN, DEFINED THE 99TH PERCENTILE OFcTnI DISTRIBUTION IN A REFERENCE POPULATION, HAS BEEN CONFIRMED THE DECISION THRESHOLDFOR [place] DIAGNOSIS. Performed By: #### B DAVID, CMADM ####[facility] Lbvfromfcf32[address] [place] [phone]. Garima Pulliam DORIS 83 ng/mL Normal 16-96 [facility] Comment on above: Performed By: #### B MP, CMADM ####[facility] Gqjbgzxooq[address] [place] [phone]. Garima Pulliam CBC AUTO DIFFon 12-10-2022 BASO # 0.0 103/ul Normal 0.0-0.1 [facility] Comment on above: Performed By: #### C BC ####[facility] Bhijrzb[address] [place] [phone]. Garima Pulliam Basophils/100 WBC (Bld) 0.3 % Normal 0.2-2.0 [facility] Comment on above: Performed By: #### C BC ####[facility] Tqbmfsqoyk[address] [place] [address]Dr. Garima Pulliam EO # 0.1 103/ul Normal 0.0-0.7 [facility] Comment on above: Performed By: #### C BC ####[facility] Vvziarqlac[address] [place] [phone]. Garima Pulliam Eosinophils/100 WBC (Bld) 0.4 % Critically low 0.9-7.0 [facility] Comment on above: Performed By: #### C BC ####[facility] Qzjyawoiji[address] [place] [phone]. Garima Pulliam Erythrocyte distribution width (RBC) [Ratio] 13.2 % Normal 11.0-15.0 [facility] Comment on above: Performed By: #### C BC ####[facility] [address] [place], [place] [address]Dr. Garima Pulliam Hematocrit (Bld) [Volume fraction] 42.4 % Normal 42.0-54.0 [facility] Comment on above: Performed By: #### C BC ####[facility] [address] [place], [place] [address]Dr. Garima Pulliam Hemoglobin (Bld) [Mass/Vol] 14.4 g/dL Normal 14.0-18.0 [facility] Comment on above: Performed By: #### C BC ####[facility] Tsc[address]raml[address] [place] [phone]. Garima Pulliam IG # 0.05 10e3/ul Critically high 0.00-0.03 [place] Comment on above: Performed By: #### C BC ####[facility] Xxophvvdug5[address] [place] [phone]. Garima Pulliam IG % 0.4 % Normal 0.0-0.5 [facility] Comment on above: Performed By: #### C BC ####[facility] Nijgfdsrfg[address] [place] [address]Dr. Garima Pulliam LYMPH # 0.8 103/ul Critically low 1.2-3.8 [facility] Comment on above: Performed By: #### C BC ####[facility] Uybnxqtamq[address] [place] [address]Dr. Garima Pulliam Lymphocytes/100 WBC (Bld) 6.5 % Critically low 20.5-60.0 [facility] Comment on above: Performed By: #### C BC ####[facility] Uvrwoqutzr[address] [place] [address]Dr. Garima Pulliam MANUAL DIFF REQ NO Normal [facility] Comment on above: Performed By: #### C BC ####[facility] Pboudlsvaw[address] [place] [address]Dr. Garima Pulliam MCH (RBC) [Entitic mass] 30.5 pg Normal 25.9-34.0 [facility] Comment on above: Performed By: #### C BC ####[facility] X[address]use[address] [place], [place] [address]Dr. Garima Pulliam MCHC (RBC) [Mass/Vol] 34.0 g/dL Normal 29.9-35.2 [facility] Comment on above: Performed By: #### C BC ####[facility] [address]cle[address] [place], [place] [address]Dr. Garima Pulliam MCV (RBC) [Entitic vol] 89.8 fL Normal 80.0-94.0 [facility] Comment on above: Performed By: #### C BC ####[facility] Fmoommcufs[address] [place] [phone]. Garima Pulliam MONO # 0.2 103/ul Critically low 0.3-0.8 [facility] Comment on above: Performed By: #### C BC ####[facility] Xoqobgeuvs34[address] [place] [phone]. Garima Pulliam Monocytes/100 WBC (Bld) 2.0 % Normal 1.7-12.0 [facility] Comment on above: Performed By: #### C BC ####[facility] Ashbxypsps[address] [place] [phone]. Garima Pulliam NEUT # 10.5 103/ul Critically high 1.4-6.5 [facility] Comment on above: Performed By: #### C BC ####[facility] Akqhpccyet[address] [place] [phone]. Garima Pulliam Neutrophils/100 WBC (Bld) 90.4 % Critically high 43.0-75.0 [facility] Comment on above: Performed By: #### C BC ####[facility] Qnmzwryxzq1452 [place] [phone]. Garima Pulliam Platelet mean volume (Bld) [Entitic vol] 9.4 fL Critically low 9.5-13.5 [facility] Comment on above: Performed By: #### C BC ####[facility] Vuns[address]dmvns[address] [place] [phone]. Garima Pulliam PLT 198 103/ul Normal 150-450 [facility] Comment on above: Performed By: #### C BC ####[facility] Fzxqrjjcfh9220 [place] [phone]. Garima Pulliam RBC 4.72 106/ul Normal 4.70-6.10 [facility] Comment on above: Performed By: #### C BC ####[facility] Xdwkkasnjt3336 [place] [phone]. Garima Pulliam WBC 11.6 103/ul Critically high 4.0-11.0 [facility] Comment on above: Performed By: #### C BC ####[facility] Axhqlwquge[address] [place] [address]Dr. Garima Pulliam PROF CHEM 8 (BAS METB)on Anion gap [Moles/Vol] 11.3 mmol/L Normal [facility] Comment on above: Performed By: #### B DAVID, CMADM ####[facility] [address]chhadqiz[address] [place] [address]Dr. Garima Pulliam Calcium [Mass/Vol] 8.9 mg/dL Normal 8.5-10.1 [facility] Comment on above: Performed By: #### B DAVID, NANCY ####[facility] Oeomhoarsx[address] [place] [address]Dr. Garima Pulliam Chloride [Moles/Vol] 103 mmol/L Normal 98-107 [facility] Comment on above: Performed By: #### B DAVID, CMADM ####[facility] Y[address]znhkva[address] [place], [place] [address]Dr. Garima Pulliam CO2 [Moles/Vol] 28.2 mmol/L Normal 21.0-32.0 [facility] Comment on above: Performed By: #### Trae HERNANDEZ, NANCY ####[facility] Ylpcutgjlo[address] [place] [address]Dr. Garima Pulliam Creatinine [Mass/Vol] 0.60 mg/dL Critically low 0.70-1.30 [facility] Comment on above: Performed By: #### Trae HERNANDEZ, CMAANA ROSA ####[facility] Swh[address]xycbjz[address] [place] [address]Dr. Garima Pulliam EGFR-AF CITIZEN OF [place] >60 Normal >=60 [facility] Comment on above: Performed By: #### B DAVID, CMAANA ROSA ####[facility] [facility] [address] [place] [address]Dr. Garima Pulliam EGFR-NON AF CITIZEN OF [place] >60 Normal >=60 [facility] Comment on above: Performed By: #### B DAVID, CMADM ####[facility] Iqwgklvejo[address] [place] [address]Dr. Garima Pulliam Glucose [Mass/Vol] 166 mg/dL Critically high 74-106 [facility] Comment on above: Performed By: #### B DAVID, CMADM ####[facility] Pycwrwtygc[address] [place] [address]Dr. Garima Pulliam Potassium [Moles/Vol] 3.5 mmol/L Normal 3.5-5.1 [facility] Comment on above: Performed By: #### B DAVID, CMADM ####[facility] Wpwirokqrz[address] [place], [place] [address]Dr. Garima Pulliam Sodium [Moles/Vol] 139 mmol/L Normal 136-145 [facility] Comment on above: Performed By: #### B DAVID, CMADM ####[facility] Fsuvrdbqjj[address] [place], [place] [address]Dr. Chapisrenu Heraclio Urea nitrogen [Mass/Vol] 9.0 mg/dL Normal 7.0-18.0 [facility] Comment on above: Performed By: #### B DAVID, CMAANA ROSA ####[facility] Qdffmhjmrb[address] [place], [place] [address]Dr. Garima Pulliam Urea nitrogen/Creatinine [Mass ratio] 15.0 mg/mg Normal [facility] Comment on above: Performed By: #### B DAVID, CMAANA ROSA ####[facility] Tjnllorgih[address] [place], [place] [address]Dr. Garima Heraclio XR CHEST 1 Von 12-10-2022 XR CHEST 1 V Normal [facility] BNPon 11-27-2022 Natriuretic peptide B (Bld) [Mass/Vol] 95.0 pg/mL Normal <=900.0 [facility] Comment on above: Performed By: #### C MP, HSTROPN, BNP ####[facility] Xidnwlgsjg[address] [place], [place] [address]Dr. Garima Pulliam CBC AUTO DIFFon 11-27-2022 BASO # 0.0 103/ul Normal 0.0-0.1 [facility] Comment on above: Performed By: #### C BC ####[facility] Ntezzjdkvu[address] [place], [place] [address]Dr. Garima Pulliam Basophils/100 WBC (Bld) 0.2 % Normal 0.2-2.0 [facility] Comment on above: Performed By: #### C BC ####[facility] [address]ayfupbplb[address] [place] [phone]. Garima Pulliam EO # 0.2 103/ul Normal 0.0-0.7 [facility] Comment on above: Performed By: #### C BC ####[facility] Nwleoslnpq0674 [place] [phone]. Garima Pulliam Eosinophils/100 WBC (Bld) 2.0 % Normal 0.9-7.0 [facility] Comment on above: Performed By: #### C BC ####[facility] Nwthwfmfmd[address] [place], [place] [address]Dr. Garima Pulliam Erythrocyte distribution width (RBC) [Ratio] 13.2 % Normal 11.0-15.0 [facility] Comment on above: Performed By: #### C BC ####[facility] Wgqhftpkxl02[address] [place], [place] [address]Dr. Garima Pulliam Hematocrit (Bld) [Volume fraction] 42.4 % Normal 42.0-54.0 [facility] Comment on above: Performed By: #### C BC ####[facility] Kimdbxvzlk54[address] [place], [place] [address]Dr. Garima Pulliam Hemoglobin (Bld) [Mass/Vol] 14.4 g/dL Normal 14.0-18.0 [facility] Comment on above: Performed By: #### C BC ####[facility] Jkgavuvsaw[address] [place], [place] [address]Dr. Garima Pulliam IG # 0.04 10e3/ul Critically high 0.00-0.03 [place] Comment on above: Performed By: #### C BC ####[facility] Zpttxxlhvq[address] [place], [place] [address]Dr. Garima Pulliam IG % 0.4 % Normal 0.0-0.5 [facility] Comment on above: Performed By: #### C BC ####[facility] Jsjppqlxfe[address] [place], [place] [address]Dr. Garima Pulliam LYMPH # 2.2 103/ul Normal 1.2-3.8 [facility] Comment on above: Performed By: #### C BC ####[facility] Ktnrwnb[address]w19[address] [place] [phone]. Chapisrenu Pulliam Lymphocytes/100 WBC (Bld) 21.5 % Normal 20.5-60.0 [facility] Comment on above: Performed By: #### C BC ####[facility] Ichekfkfdg[address] [place] [phone]. Garima Pulliam MANUAL DIFF REQ NO Normal [facility] Comment on above: Performed By: #### C BC ####[facility] Utkvataudd28[address] [place] [phone]. Garima Pulliam MCH (RBC) [Entitic mass] 30.4 pg Normal 25.9-34.0 [facility] Comment on above: Performed By: #### C BC ####[facility] S[address]uxwtnqjj[address] [place] [phone]. Garima Pulliam MCHC (RBC) [Mass/Vol] 34.0 g/dL Normal 29.9-35.2 [facility] Comment on above: Performed By: #### C BC ####[facility] Iuvenknpjj49[address] [place] [phone]. Garima Pulliam MCV (RBC) [Entitic vol] 89.6 fL Normal 80.0-94.0 [facility] Comment on above: Performed By: #### C BC ####[facility] [address]wzdrxdqc5[address] [place] [phone]. Garima Pulliam MONO # 0.8 103/ul Normal 0.3-0.8 [facility] Comment on above: Performed By: #### C BC ####[facility] Pugcv[address]lfi[address] [place] [phone]. Garima Pulliam Monocytes/100 WBC (Bld) 7.7 % Normal 1.7-12.0 [facility] Comment on above: Performed By: #### C BC ####[facility] [address]ounxnmx8[address] [place] [phone]. Garima Pulliam NEUT # 7.0 103/ul Critically high 1.4-6.5 [facility] Comment on above: Performed By: #### C BC ####[facility] G[address]ufatrkv7[address] [place] [address]Dr. Garima Pulliam Neutrophils/100 WBC (Bld) 68.2 % Normal 43.0-75.0 [facility] Comment on above: Performed By: #### C BC ####[facility] Yztrnvwjbu3719 [place] [phone]. Garima Pulliam Platelet mean volume (Bld) [Entitic vol] 8.9 fL Critically low 9.5-13.5 [facility] Comment on above: Performed By: #### C BC ####[facility] I[address]aucxwr[address] [place] [address]Dr. Garima Pulliam PLT 222 103/ul Normal 150-450 [facility] Comment on above: Performed By: #### C BC ####[facility] C[address]wmnavrex28[address] [place] [address]Dr. Garima Pulliam RBC 4.73 106/ul Normal 4.70-6.10 [facility] Comment on above: Performed By: #### C BC ####[facility] Spjpicxemj[address] [place], [place] [address]Dr. Garima Pulliam WBC 10.3 103/ul Normal 4.0-11.0 [facility] Comment on above: Performed By: #### C BC ####[facility] Xrrmdjhxqj7[address] [place] [address]DrAdalberto Pulliam PROF 14(COMP METB)on 023 Albumin [Mass/Vol] 3.7 g/dL Normal 3.4-5.0 [facility] Comment on above: Performed By: #### C MP, HSTROPN, BNP ####[facility] Kzjutaqein[address] [place] [phone]. Garima Pulliam Albumin/Globulin [Mass ratio] 1.5 {ratio} Normal [facility] Comment on above: Performed By: #### C MP, HSTROPN, BNP ####[facility] Ygfmjpuile79[address] [place] [phone] Pulliam ALP [Catalytic activity/Vol] 79 U/L Normal 46-116 [facility] Comment on above: Performed By: #### C DAVID HSTROPN, BNP ####[facility] Pocfxpwzue[address] [place] [address]Dr. Garima Pulliam ALT [Catalytic activity/Vol] 32 U/L Normal 16-63 [facility] Comment on above: Performed By: #### C DAVID, HSTROPN, BNP ####[facility] Fhvzjwjorl[address] [place] [address]Dr. Garima Pulliam Anion gap [Moles/Vol] 9.5 mmol/L Normal [facility] Comment on above: Performed By: #### C DAVID HSTROPN, BNP ####[facility] [address]atqkewubr[address] [place], [place] [address]Dr. Garima Pulliam AST [Catalytic activity/Vol] 25 U/L Normal 15-37 [facility] Comment on above: Performed By: #### C DAVID, HSTROPN, BNP ####[facility] Trbjfmscjp[address] [place], [place] [address]Dr. Garima Pulliam Bilirubin [Mass/Vol] 0.4 mg/dL Normal 0.2-1.0 [facility] Comment on above: Performed By: #### C DAVID HSTROPN, BNP ####[facility] Qnmipkqwlf[address] [place], [place] [address]Dr. Garima Pulliam Calcium [Mass/Vol] 8.9 mg/dL Normal 8.5-10.1 [facility] Comment on above: Performed By: #### C DAVID, HSTROPN, BNP ####[facility] [address]wozctxvbt[address] [place] [address]Dr. Garima Pulliam Chloride [Moles/Vol] 103 mmol/L Normal 98-107 [facility] Comment on above: Performed By: #### C DAVID, HSTROPN, BNP ####[facility] A[address]wbvqwg[address] [place] [address]Dr. Garima Pulliam CO2 [Moles/Vol] 28.6 mmol/L Normal 21.0-32.0 [facility] Comment on above: Performed By: #### C MP, HSTROPN, BNP ####[facility] Utbmapojrd[address] [place] [address]Dr. Garima Pulliam Creatinine [Mass/Vol] 0.72 mg/dL Normal 0.70-1.30 [facility] Comment on above: Performed By: #### C MP, HSTROPN, BNP ####[facility] Dgsdxjwsus33[address] [place] [address]Dr. Garima Pulliam EGFR-AF [place]IZ[place] >60 Normal >=60 [facility] Comment on above: Performed By: #### C MP, HSTROPN, BNP ####[facility] Nekazfcran[address] [place], [place] [address]Dr. Garima uPlliam EGFR-NON AF [place]IZ[place] OF [place] >60 Normal >=60 [facility] Comment on above: Performed By: #### C MP, HSTROPN, BNP ####[facility] Tknszmcmte[address] [place], [place] [address]Dr. Garima Pulliam Globulin (S) [Mass/Vol] 2.5 g/dL Normal [facility] Comment on above: Performed By: #### C MP, HSTROPN, BNP ####[facility] Etovnsfptv[address] [place], [place] [address]Dr. Garmia Pulliam Glucose [Mass/Vol] 114 mg/dL Critically high 74-106 [facility] Comment on above: Performed By: #### C MP, HSTROPN, BNP ####[facility] Ousuxthfso[address] [place], [place] [address]Dr. Garima Pulliam Potassium [Moles/Vol] 4.1 mmol/L Normal 3.5-5.1 [facility] Comment on above: Performed By: #### C MP, HSTROPN, BNP ####[facility] Vhpaawynvw[address] [place], [place] [address]Dr. Garima Pulliam Protein [Mass/Vol] 6.2 g/dL Critically low 6.4-8.2 [facility] Comment on above: Performed By: #### C MP, HSTROPN, BNP ####[facility] V[address]qfyickio46[address] [place] [address]Dr. Garima Pulliam Sodium [Moles/Vol] 137 mmol/L Normal 136-145 [facility] Comment on above: Performed By: #### C MP, HSTROPN, BNP ####[facility] [address]sdaqonnjw24[address] [place] [address]Dr. Garima Pulliam Urea nitrogen [Mass/Vol] 13.0 mg/dL Normal 7.0-18.0 [facility] Comment on above: Performed By: #### C MP, HSTROPN, BNP ####[facility] Zggaemcmuq38[address] [place] [address]Dr. Chapisrenu Pulliam Urea nitrogen/Creatinine [Mass ratio] 18.1 mg/mg Normal [facility] Comment on above: Performed By: #### C MP, HSTROPN, BNP ####[facility] Yfmlrjwjbt[address] [place], [place] [address]Dr. Garima Pulliam TROPONIN, HIGH SENSITIVITYon 11-27-2022 HSTROP 11.8 pg/mL Normal 4.0-76.1 [facility] Comment on above: Result Comment: CUT- OFF POINTS HAVE BEEN ESTABLISHED BASED ON THE FOURTH UNIVERSAL DEFINITIONS OF MYOCARDIALINFARCTION. THE UPPER REFERENCE LIMIT (URL) OF TROPONIN, DEFINED THE 99TH PERCENTILE OFcTnI DISTRIBUTION IN A REFERENCE POPULATION, HAS BEEN CONFIRMED THE DECISION THRESHOLDFOR [place] DIAGNOSIS. Performed By: #### C MP, HSTROPN, BNP ####[facility] Hiv[address]wbqgm[address] [place] [address]Dr. Garima Pulliam XR CHEST 1 Von 11-27-2022 XR CHEST 1 V Normal [facility] BNPon 11-20-2022 Natriuretic peptide B (Bld) [Mass/Vol] 73.0 pg/mL Normal <=900.0 [facility] Comment on above: Performed By: #### B MP, HSTROPN, BNP ####[facility] Ytbozdxqjx99[address] [place], [place] [address]Dr. Chapisrenu Pulliam CBC AUTO DIFFon 11-20-2022 BASO # 0.0 103/ul Normal 0.0-0.1 [facility] Comment on above: Performed By: #### C BC ####[facility] Dftrxrtewu15[address] [place] [phone]. Garima Pulliam Basophils/100 WBC (Bld) 0.3 % Normal 0.2-2.0 [facility] Comment on above: Performed By: #### C BC ####[facility] E[address]hc[address] [place], [place] [id number]. Garima Pulliam EO # 0.2 103/ul Normal 0.0-0.7 [facility] Comment on above: Performed By: #### C BC ####[facility] Dotddywmnn[address] [place], [place] [address]Dr. Garima Pulliam Eosinophils/100 WBC (Bld) 2.1 % Normal 0.9-7.0 [facility] Comment on above: Performed By: #### C BC ####[facility] Gkquvezoez[address] [place], [place] [address]Dr. Garima Pulliam Erythrocyte distribution width (RBC) [Ratio] 13.2 % Normal 11.0-15.0 [facility] Comment on above: Performed By: #### C BC ####[facility] [address]fxqr[address] [place], [place] [address]Dr. Garima Pulliam Hematocrit (Bld) [Volume fraction] 43.4 % Normal 42.0-54.0 [facility] Comment on above: Performed By: #### C BC ####[facility] [address]xj[address] [place], [place] [address]Dr. Garima Pulliam Hemoglobin (Bld) [Mass/Vol] 14.6 g/dL Normal 14.0-18.0 [facility] Comment on above: Performed By: #### C BC ####[facility] Izvokhdlon[address] [place], [place] [address]Dr. Garima Pulliam IG # 0.02 10e3/ul Normal 0.00-0.03 [facility] Comment on above: Performed By: #### C BC ####[facility] Iupckaihik[address] [place], [place] [address]Dr. Garima Pulliam IG % 0.2 % Normal 0.0-0.5 [facility] Comment on above: Performed By: #### C BC ####[facility] Yvdzmtrmre50[address] [place] [phone]. Chapisrenu Heraclio LYMPH # 2.1 103/ul Normal 1.2-3.8 [facility] Comment on above: Performed By: #### C BC ####[facility] K[address]jci[address] [place] [phone]. Garima Pulliam Lymphocytes/100 WBC (Bld) 19.2 % Critically low 20.5-60.0 [facility] Comment on above: Performed By: #### C BC ####[facility] Hhiecqppna[address] [place] [phone]. Garima Pulliam MANUAL DIFF REQ NO Normal [facility] Comment on above: Performed By: #### C BC ####[facility] Bfkwveinuo3683 [place] [phone]. Garima Pulliam MCH (RBC) [Entitic mass] 30.4 pg Normal 25.9-34.0 [facility] Comment on above: Performed By: #### C BC ####[facility] Oq[address]rgdgdp1719 [place] [phone]. Garima Pulliam MCHC (RBC) [Mass/Vol] 33.6 g/dL Normal 29.9-35.2 [facility] Comment on above: Performed By: #### C BC ####[facility] Xwsgzufndp1582 [place] [phone]. Garima Pulliam MCV (RBC) [Entitic vol] 90.4 fL Normal 80.0-94.0 [facility] Comment on above: Performed By: #### C BC ####[facility] Rtaletauuy[address] [place] [address]Dr. Garima Pulliam MONO # 0.6 103/ul Normal 0.3-0.8 [facility] Comment on above: Performed By: #### C BC ####[facility] Tnuyntnqfx1658 [place] [phone]. Garima Pulliam Monocytes/100 WBC (Bld) 5.8 % Normal 1.7-12.0 [facility] Comment on above: Performed By: #### C BC ####[facility] Yeipmjrrmd8846 [place] [phone]. Garima Pulliam NEUT # 7.8 103/ul Critically high 1.4-6.5 [facility] Comment on above: Performed By: #### C BC ####[facility] Gqawyxhrlr20[address] [place] [phone]. Garima Pulliam Neutrophils/100 WBC (Bld) 72.4 % Normal 43.0-75.0 [facility] Comment on above: Performed By: #### C BC ####[facility] Wfyafngvbu6853 [place] [phone]. Garima Pulliam Platelet mean volume (Bld) [Entitic vol] 8.7 fL Critically low 9.5-13.5 [facility] Comment on above: Performed By: #### C BC ####[facility] Erowbqxuey[address] [place] [address]Dr. Garima Pulliam PLT 184 103/ul Normal 150-450 [facility] Comment on above: Performed By: #### C BC ####[facility] Hmstkcoofr54[address] [place] [phone]. Garima Pulliam RBC 4.80 106/ul Normal 4.70-6.10 [facility] Comment on above: Performed By: #### C BC ####[facility] Lwszfoeonr8732 [place] [phone]. Garima Pulliam WBC 10.8 103/ul Normal 4.0-11.0 [facility] Comment on above: Performed By: #### C BC ####[facility] [address]qz[address] [place], [place] [id number]. Garima Pulliam Covid-19 PCR (CVDTB)on 10-24 SARS-CoV-2 (COVID-19) RNA MARIE+probe Ql (Unsp spec) Not detected Normal NOT DETECTED [facility] Comment on above: Result Comment: When [...] for this test is supported by the Telephone Interceptor Operator of Health and Human Service's declaration that [...] be used). Performed By: #### C VDTB ####[facility] Uajhzojjmz[address] [place], [place] [address]Dr. Garima Pulliam INFLUENZA A AND B AGon 11-20 [facility] SEE BELOW Normal [facility] Comment on above: Result Comment: Nega tive for Flu A protein angiten. Infection due to Flu A cannot be ruled out. Flu A angiten in the sample may be below the detection limit of the test. Performed By: #### I NFLUAB ####[facility] Vsvjvujdei[address] [place], [place] [address]Dr. Garima Pulliam INFLUBNEG SEE BELOW Normal [facility] Comment on above: Result Comment: Nega tive for Flu B protein antigen. Infection due to Flu B cannot be ruled out. Flu B antigen in the sample may be below the detection limit of the test. Performed By: #### I NFLUAB ####[facility] [address]qmrmwkw[address] [place], [place] [address]Dr. Garima Pulliam INFLUENZA A AG Negative Normal NEGATIVE SEE COMMENT [facility] Comment on above: Performed By: #### I NFLUAB ####[facility] Hzvgispokn60[address] [place], [place] [address]Dr. Garima Pulliam INFLUENZA B AG Negative Normal NEGATIVE SEE COMMENT [facility] Comment on above: Performed By: #### I NFLUAB ####[facility] Zuaeczrzby[address] [place], [place] [address]Dr. Garima Pulliam PROF CHEM 8 (BAS METB)on Anion gap [Moles/Vol] 8.2 mmol/L Normal [facility] Comment on above: Performed By: #### B MP, HSTROPN, BNP ####[facility] Mpximadzno5[address] [place] [address]Dr. Garima Pulliam Calcium [Mass/Vol] 8.7 mg/dL Normal 8.5-10.1 [facility] Comment on above: Performed By: #### B MP, HSTROPN, BNP ####[facility] Iuiwcgdrqh9508 [place] [address]Dr. Garima Pulliam Chloride [Moles/Vol] 103 mmol/L Normal 98-107 [facility] Comment on above: Performed By: #### B MP, HSTROPN, BNP ####[facility] Fesaotvyxr8203 [place] [address]Dr. Garima Pulliam CO2 [Moles/Vol] 29.4 mmol/L Normal 21.0-32.0 [facility] Comment on above: Performed By: #### B MP, HSTROPN, BNP ####[facility] Kdsjnrhjqr[address] [place], [place] [address]Dr. Garima Pulliam Creatinine [Mass/Vol] 0.69 mg/dL Critically low 0.70-1.30 [facility] Comment on above: Performed By: #### B MP, HSTROPN, BNP ####[facility] Btfxtpwohn[address] [place] [address]Dr. Garima Pulliam EGFR-AF [place]IZ[place] OF [place] >60 Normal >=60 [facility] Comment on above: Performed By: #### B MP, HSTROPN, BNP ####[facility] [address]pbizssj[address] [place], [place] [address]Dr. Garima Pulliam EGFR-NON AF [place]IZEN OF [place] >60 Normal >=60 [facility] Comment on above: Performed By: #### B MP, HSTROPN, BNP ####[facility] Zivvbyuuru6[address] [place] [address]Dr. Chapisrenu Pulliam Glucose [Mass/Vol] 209 mg/dL Critically high 74-106 [facility] Comment on above: Performed By: #### B MP, HSTROPN, BNP ####[facility] Clmnipogmb[address] [place] [address]Dr. Garima Pulliam Potassium [Moles/Vol] 3.6 mmol/L Normal 3.5-5.1 [facility] Comment on above: Performed By: #### B MP, HSTROPN, BNP ####[facility] Qwyldlddhq23[address] [place] [address]Dr. Garima Pulliam Sodium [Moles/Vol] 137 mmol/L Normal 136-145 [facility] Comment on above: Performed By: #### B MP, HSTROPN, BNP ####[facility] Nuswcfuglr30[address] [place] [address]Dr. Garima Pulliam Urea nitrogen [Mass/Vol] 11.0 mg/dL Normal 7.0-18.0 [facility] Comment on above: Performed By: #### B MP, HSTROPN, BNP ####[facility] Kbzwfshksv58[address] [place] [address]Dr. Garima Pulliam Urea nitrogen/Creatinine [Mass ratio] 15.9 mg/mg Normal [facility] Comment on above: Performed By: #### B MP, HSTROPN, BNP ####[facility] By[address]cdqxsxt[address] [place] [address]Dr. Garima Pulliam TROPONIN, HIGH SENSITIVITYon 11-20-2022 HSTROP 8.7 pg/mL Normal 4.0-76.1 [facility] Comment on above: Result Comment: CUT- OFF POINTS HAVE BEEN ESTABLISHED BASED ON THE FOURTH UNIVERSAL DEFINITIONS OF MYOCARDIALINFARCTION. THE UPPER REFERENCE LIMIT (URL) OF TROPONIN, DEFINED THE 99TH PERCENTILE OFcTnI DISTRIBUTION IN A REFERENCE POPULATION, HAS BEEN CONFIRMED THE DECISION THRESHOLDFOR [place] DIAGNOSIS. Performed By: #### B MP, HSTROPN, BNP ####[facility] V[address]rlkwrzh[address] [place] [address]Dr. Garima Pulliam XR CHEST 1 Von 11-20-2022 XR CHEST 1 V Normal [facility] XR CHEST 1 Von 10-02-2022 XR CHEST 1 V Normal The [facility] BNPon 09-29-2022 Natriuretic peptide B (Bld) [Mass/Vol] 107.0 pg/mL Normal <=900.0 The [facility] Comment on above: Performed By: #### C MP, BNP, CMADM ####[facility] Dccsrwuccq[address] [place] [address]Dr. Garima Pulliam CARDIAC NASH ADMITon 022 CK [Catalytic activity/Vol] 190 U/L Normal 39-308 The [facility] Comment on above: Performed By: #### C MP, BNP, CMADM ####[facility] Nfyahmeahe[address] [place] [address]Dr. Garima Pulliam CK.MB [Mass/Vol] 11.11 ng/mL Critically high <=3.60 Th [facility] Comment on above: Performed By: #### C MP, BNP, CMADM ####[facility] Gynkfslmzb[address] [place] [address]Dr. Garima Pulliam HSTROP 11.8 pg/mL Normal 4.0-76.1 The [facility] Comment on above: Result Comment: CUT- OFF POINTS HAVE BEEN ESTABLISHED BASED ON THE FOURTH UNIVERSAL DEFINITIONS OF MYOCARDIALINFARCTION. THE UPPER REFERENCE LIMIT (URL) OF TROPONIN, DEFINED THE 99TH PERCENTILE OFcTnI DISTRIBUTION IN A REFERENCE POPULATION, HAS BEEN CONFIRMED THE DECISION THRESHOLDFOR WI DIAGNOSIS. Performed By: #### C MP, BNP, CMADM ####[facility] Vwssoxpzde[address] [place] [address]Dr. Garima Pulliam DORIS 133 ng/mL Critically high 16-96 The [facility] Comment on above: Performed By: #### C MP, BNP, CMADM ####[facility] Mdldkxqtba28[address] [place] [address]Dr. Garima Pulliam CBC AUTO DIFFon 09-29-2022 BASO # 0.0 103/ul Normal 0.0-0.1 The [facility] Comment on above: Performed By: #### C BC ####[facility] Lwxxfkuskf75[address] [place] [address]Dr. Garima Pulliam Basophils/100 WBC (Bld) 0.2 % Normal 0.2-2.0 The [facility] Comment on above: Performed By: #### C BC ####[facility] Ylhmfuklfe[address] [place] [address]Dr. Garima Pulliam EO # 0.1 103/ul Normal 0.0-0.7 [facility] Comment on above: Performed By: #### C BC ####[facility] Usercpljew13[address] [place] [address]Dr. Garima Pulliam Eosinophils/100 WBC (Bld) 1.4 % Normal 0.9-7.0 [facility] Comment on above: Performed By: #### C BC ####[facility] Kxoebqdsgn5[address] [place] [address]Dr. Garima Pulliam Erythrocyte distribution width (RBC) [Ratio] 13.7 % Normal 11.0-15.0 [facility] Comment on above: Performed By: #### C BC ####[facility] Fstfpuuazm[address] [place], [place] [address]Dr. Garima Pulliam Hematocrit (Bld) [Volume fraction] 45.4 % Normal 42.0-54.0 [facility] Comment on above: Performed By: #### C BC ####[facility] Bsubqjxpbp[address] [place], [place] [address]Dr. Garima Pulliam Hemoglobin (Bld) [Mass/Vol] 14.8 g/dL Normal 14.0-18.0 [facility] Comment on above: Performed By: #### C BC ####[facility] Ltdqueruao[address] [place], [place] [address]Dr. Garima Pulliam IG # 0.04 10e3/ul Critically high 0.00-0.03 [place] Comment on above: Performed By: #### C BC ####[facility] Rtslgtkguz99[address] [place], [place] [address]Dr. Garima Heraclio IG % 0.5 % Normal 0.0-0.5 The [facility] Comment on above: Performed By: #### C BC ####[facility] Bjmhpgjjvt67[address] [place], [place] [address]DrAdalberto Pulliam LYMPH # 1.1 103/ul Critically low 1.2-3.8 [facility] Comment on above: Performed By: #### C BC ####[facility] Ufayioozbq5[address] [place] [address]DrAdalberto Pulliam Lymphocytes/100 WBC (Bld) 12.7 % Critically low 20.5-60.0 [facility] Comment on above: Performed By: #### C BC ####[facility] Pruggytpzf[address] [place] [address]DrAdalberto Pulliam MANUAL DIFF REQ NO Normal [facility] Comment on above: Performed By: #### C BC ####[facility] Zfpyjxbcoi3841 [place] [id number] Pulliam MCH (RBC) [Entitic mass] 30.0 pg Normal 25.9-34.0 The [facility] Comment on above: Performed By: #### C BC ####[facility] Nhxonupqvt[address] [place], [place] [address]Dr. Garima Pulliam MCHC (RBC) [Mass/Vol] 32.6 g/dL Normal 29.9-35.2 [facility] Comment on above: Performed By: #### C BC ####[facility] Gpdhzvnhll[address] [place], [place] [address]DrAdalberto Pulliam MCV (RBC) [Entitic vol] 91.9 fL Normal 80.0-94.0 The [facility] Comment on above: Performed By: #### C BC ####[facility] Wtdaeunnbr[address] [place] [address]DrAdalberto Pulliam MONO # 0.4 103/ul Normal 0.3-0.8 The [facility] Comment on above: Performed By: #### C BC ####[facility] [address] [place], [place] [id number] Pulliam Monocytes/100 WBC (Bld) 4.8 % Normal 1.7-12.0 The [facility] Comment on above: Performed By: #### C BC ####[facility] X[address] [place], [place] [id number] Pulliam NEUT # 7.1 103/ul Critically high 1.4-6.5 The [facility] Comment on above: Performed By: #### C BC ####[facility] Ttwmpyybxp[address] [place] [phone]. Garima Pulliam Neutrophils/100 WBC (Bld) 80.4 % Critically high 43.0-75.0 [facility] Comment on above: Performed By: #### C BC ####[facility] Airwmzmlwu99[address] [place] [phone]. Garima Pulliam Platelet mean volume (Bld) [Entitic vol] 9.1 fL Critically low 9.5-13.5 [facility] Comment on above: Performed By: #### C BC ####[facility] Cvulrpsnib38[address] [place] [phone]. Garima Pulliam PLT 200 103/ul Normal 150-450 The [facility] Comment on above: Performed By: #### C BC ####[facility] Vgdmjuicil3495 [place] [phone]. Garima Pulliam RBC 4.94 106/ul Normal 4.70-6.10 The [facility] Comment on above: Performed By: #### C BC ####[facility] Gpvcsevaan38[address] [place] [phone]. Garima Pulliam WBC 8.9 103/ul Normal 4.0-11.0 The [facility] Comment on above: Performed By: #### C BC ####[facility] Zvkjhyvaeo34[address] [place] [phone]. Garima Pulliam Cov[facility]on SARS-CoV-2 (COVID-19) RNA MARIE+probe Ql (Unsp spec) Not detected Normal NOT DETECTED The [facility] Comment on above: Result Comment: When [...] for this test is supported by the [place] of Health and Human Service's declaration that [...] be used). Performed By: #### C VDTBH ####[facility] Bnitoyhmkp[address] [place] [address]Dr. Garima Pulliam LACTATE/LACTIC ACIDon 2021 Lactate [Moles/Vol] 1.7 mmol/L Normal 0.4-1.9 [facility] Comment on above: Performed By: #### L ACT ####[facility] Ablcnycwiw[address] [place], [place] [address]Dr. Garima Pulliam PROF 14(COMP METB)on 022 Albumin [Mass/Vol] 3.8 g/dL Normal 3.4-5.0 [facility] Comment on above: Performed By: #### C MP, BNP, CMADM ####[facility] Vougiangju[address] [place] [address]Dr. Garima Pulliam Albumin/Globulin [Mass ratio] 1.5 {ratio} Normal [facility] Comment on above: Performed By: #### C MP, BNP, CMADM ####[facility] [address]hrldfstg[address] [place], [place] [address]Dr. Garima Pulliam ALP [Catalytic activity/Vol] 62 U/L Normal 46-116 The [facility] Comment on above: Performed By: #### C MP, BNP, CMADM ####[facility] Ndsptjgqei80[address] [place] [address]Dr. Garima Pulliam ALT [Catalytic activity/Vol] 37 U/L Normal 16-63 [facility] Comment on above: Performed By: #### C MP, BNP, CMADM ####[facility] Oxcpqgtcqe5537 [place] [address]Dr. Garima Pulliam Anion gap [Moles/Vol] 8.0 mmol/L Normal [facility] Comment on above: Performed By: #### C MP, BNP, CMADM ####[facility] Ypiqzxsvzx95[address] [place] [address]Dr. Garima Pulliam AST [Catalytic activity/Vol] 20 U/L Normal 15-37 The [facility] Comment on above: Performed By: #### C MP, BNP, CMADM ####[facility] Fiiczdufuz7[address] [place] [address]Dr. Garima Pulliam Bilirubin [Mass/Vol] 0.6 mg/dL Normal 0.2-1.0 The [facility] Comment on above: Performed By: #### C MP, BNP, CMADM ####[facility] Damypegjjx[address] [place] [address]Dr. Garima Pulliam Calcium [Mass/Vol] 9.1 mg/dL Normal 8.5-10.1 [facility] Comment on above: Performed By: #### C MP, BNP, CMADM ####[facility] Arxaenfzjs[address] [place] [address]Dr. Garima Pulliam Chloride [Moles/Vol] 103 mmol/L Normal 98-107 The [facility] Comment on above: Performed By: #### C MP, BNP, CMADM ####[facility] Mphhpmayoy[address] [place] [address]Dr. Garima Pulliam CO2 [Moles/Vol] 31.8 mmol/L Normal 21.0-32.0 The [facility] Comment on above: Performed By: #### C MP, BNP, CMADM ####[facility] Dpywugpzar[address] [place] [address]Dr. Garima Pulliam Creatinine [Mass/Vol] 0.63 mg/dL Critically low 0.70-1.30 The [facility] Comment on above: Performed By: #### C MP, BNP, CMADM ####[facility] Cbmohfetyj[address] [place] [address]Dr. Garima Pulliam EGFR-AF [place]IZ[place] >60 Normal >=60 The [facility] Comment on above: Performed By: #### C MP, BNP, CMADM ####[facility] Fasfbpofke0708 [place] [phone]. Garima Pulliam EGFR-NON AF [place]IZEN [place] >60 Normal >=60 The [facility] Comment on above: Performed By: #### C MP, BNP, CMADM ####[facility] Yabjsszxjk48[address] [place] [address]Dr. Garima Pulliam Globulin (S) [Mass/Vol] 2.6 g/dL Normal The [facility] Comment on above: Performed By: #### C MP, BNP, CMADM ####[facility] Uwilhpvwgk05[address] [place] [address]Dr. Garima Pluliam Glucose [Mass/Vol] 103 mg/dL Normal 74-106 The [facility] Comment on above: Performed By: #### C MP, BNP, CMADM ####[facility] Sauoosyocl9[address] [place] [address]Dr. Garima Pulliam Potassium [Moles/Vol] 3.8 mmol/L Normal 3.5-5.1 The [facility] Comment on above: Performed By: #### C MP, BNP, CMADM ####[facility] Vupsqbsddl7357 [place] [address]Dr. Garima Pulliam Protein [Mass/Vol] 6.4 g/dL Normal 6.4-8.2 The [facility] Comment on above: Performed By: #### C MP, BNP, CMADM ####[facility] Xzwteadrrg4710 [place] [address]Dr. Garima Pulliam Sodium [Moles/Vol] 139 mmol/L Normal 136-145 The [facility] Comment on above: Performed By: #### C MP, BNP, CMADM ####[facility] Vgkkowpxnx0580 [place] [address]Dr. Garima Pulliam Urea nitrogen [Mass/Vol] 7.0 mg/dL Normal 7.0-18.0 The [facility] Comment on above: Performed By: #### C MP, BNP, CMADM ####[facility] Wqaaqamujf4[address] [place] [address]Dr. Garima Pulilam Urea nitrogen/Creatinine [Mass ratio] 11.1 mg/mg Normal The [facility] Comment on above: Performed By: #### C MP, BNP, CMADM ####[facility] Cucjnawumy2[address] [place] [address]Dr. Chapisrenu Pulliam PROTIMEon 09-29-2022 INR Coag (PPP) [Relative time] 1.14 {INR} Normal The [facility] Comment on above: Performed By: #### P T, PTT ####[facility] Qicujbeplm[address] [place], [place] [address]Dr. Garima Pulliam INR GUIDELINES SEE BELOW Normal The [facility] Comment on above: Result Comment: WESLEY RED INR: 2.0 - 3.0 CONDITIONS NOT LISTED BELOW 2.5 - 3.5 FOR PROSTHETIC HEART VALVE REPLACEMENT 2.5 - 3.5 RECURRENT THROMBOSIS Performed By: #### P T, PTT ####[facility] Gsudfcgnpw[address] [place], [place] [address]Dr. Garima Pulliam PT Coag (PPP) [Time] 12.2 s Critically high 9.0-11.6 The [facility] Comment on above: Performed By: #### P T, PTT ####[facility] Iqpsdbbzok[address] [place], [place] [address]Dr. Garima Pulliam PTTon 09-29-2022 aPTT Coag (Bld) [Time] 29.3 s Normal 22.3-36.2 The [facility] Comment on above: Performed By: #### P T, PTT ####[facility] Cmeydnnwtt[address] [place], [place] [address]Dr. Garima Pulliam XR CHEST 1 Von 09-29-2022 XR CHEST 1 V Normal The [facility] CBC AUTO DIFFon 09-26-2022 BASO # 0.0 103/ul Normal 0.0-0.1 The [facility] Comment on above: Performed By: #### C BC ####[facility] Ntpokqbqag[address] [place], [place] [address]Dr. Garima Pulliam Basophils/100 WBC (Bld) 0.2 % Normal 0.2-2.0 The [facility] Comment on above: Performed By: #### C BC ####[facility] Gjqpzebcuo6042 [place] [address]Dr. Garima Pulliam EO # 0.1 103/ul Normal 0.0-0.7 The [facility] Comment on above: Performed By: #### C BC ####[facility] Wgbpbuemit23[address] [place], [place] [address]Dr. Garima Pulliam Eosinophils/100 WBC (Bld) 1.0 % Normal 0.9-7.0 The [facility] Comment on above: Performed By: #### C BC ####[facility] Yvtugskowo10[address] [place], [place] [address]Dr. Garima Pulliam Erythrocyte distribution width (RBC) [Ratio] 13.4 % Normal 11.0-15.0 The [facility] Comment on above: Performed By: #### C BC ####[facility] Qlhxxudswr[address] [place], [place] [address]Dr. Garima Pulliam Hematocrit (Bld) [Volume fraction] 46.3 % Normal 42.0-54.0 The [facility] Comment on above: Performed By: #### C BC ####[facility] Fpcwyljtjd[address] [place], [place] [address]Dr. Garima Pulliam Hemoglobin (Bld) [Mass/Vol] 15.3 g/dL Normal 14.0-18.0 The [facility] Comment on above: Performed By: #### C BC ####[facility] Fmuvzivwgh[address] [place], [place] [address]Dr. Garima Pulliam IG # 0.05 10e3/ul Critically high 0.00-0.03 The [facility] Comment on above: Performed By: #### C BC ####[facility] Oneyvewqok9[address] [place], [place] [address]Dr. Garima Pulliam IG % 0.4 % Normal 0.0-0.5 The [facility] Comment on above: Performed By: #### C BC ####[facility] Oozlidrwhp[address] [place], [place] [address]Dr. Garima Pulliam LYMPH # 1.7 103/ul Normal 1.2-3.8 The [facility] Comment on above: Performed By: #### C BC ####[facility] Dhrlnyftff7270 [place] [address]Dr. Chapisrenu Pulliam Lymphocytes/100 WBC (Bld) 12.7 % Critically low 20.5-60.0 The [facility] Comment on above: Performed By: #### C BC ####[facility] Exjmhxhsqi6[address] [place] [address]Dr. Chapisrenu Pulliam MANUAL DIFF REQ NO Normal The [facility] Comment on above: Performed By: #### C BC ####[facility] Ahfwfbtdwc6860 [place] [address]Dr. Garima Pulliam MCH (RBC) [Entitic mass] 30.1 pg Normal 25.9-34.0 The [facility] Comment on above: Performed By: #### C BC ####[facility] Mmkwbdxlxu[address] [place], [place] [address]Dr. Garima Pulliam MCHC (RBC) [Mass/Vol] 33.0 g/dL Normal 29.9-35.2 The [facility] Comment on above: Performed By: #### C BC ####[facility] Fabxsvqroo[address] [place], [place] [address]Dr. Garima Pulliam MCV (RBC) [Entitic vol] 91.1 fL Normal 80.0-94.0 The [facility] Comment on above: Performed By: #### C BC ####[facility] [address]vsuhxlfed[address] [place], [place] [address]Dr. Garima Pulliam MONO # 0.9 103/ul Critically high 0.3-0.8 The [facility] Comment on above: Performed By: #### C BC ####[facility] Uppvojhigm[address] [place], [place] [address]Dr. Garima Pulliam Monocytes/100 WBC (Bld) 7.0 % Normal 1.7-12.0 The [facility] Comment on above: Performed By: #### C BC ####[facility] Xinzsolhnp[address] [place], [place] [address]Dr. Garima Pulliam NEUT # 10.4 103/ul Critically high 1.4-6.5 The [facility] Comment on above: Performed By: #### C BC ####[facility] Byqfbmgdhl9567 [place] [address]Dr. Garima Pulliam Neutrophils/100 WBC (Bld) 78.7 % Critically high 43.0-75.0 [facility] Comment on above: Performed By: #### C BC ####[facility] Zzpmtsddst25[address] [place] [address]Dr. Garima Pulliam Platelet mean volume (Bld) [Entitic vol] 8.9 fL Critically low 9.5-13.5 The [facility] Comment on above: Performed By: #### C BC ####[facility] Sbkozuxhva9[address] [place] [address]Dr. Garima Pulliam PLT 195 103/ul Normal 150-450 [facility] Comment on above: Performed By: #### C BC ####[facility] Rjlzpwcixt5977 [place] [address]Dr. Garima Pulliam RBC 5.08 106/ul Normal 4.70-6.10 The [facility] Comment on above: Performed By: #### C BC ####[facility] Trifivqaaq37[address] [place] [address]Dr. Garima Pulliam WBC 13.2 103/ul Critically high 4.0-11.0 The [facility] Comment on above: Performed By: #### C BC ####[facility] Ttjhxuaotu6149 [place] [address]Dr. Garima Pulliam PROF 14(COMP METB)on 022 Albumin [Mass/Vol] 3.5 g/dL Normal 3.4-5.0 [facility] Comment on above: Performed By: #### C DAVID HSTROPN ####[facility] Fsxoqkrffi30[address] [place] [id number]. Garima Pulliam Albumin/Globulin [Mass ratio] 1.2 {ratio} Normal The [facility] Comment on above: Performed By: #### C DAVID, HSTROPN ####[facility] Ifiupfliqi0167 [place] [phone]. Garima Pulliam ALP [Catalytic activity/Vol] 71 U/L Normal 46-116 The [facility] Comment on above: Performed By: #### C DAVID, HSTROPN ####[facility] Djazfnoxdl62[address] [place] [address]Dr. Garima Pulliam ALT [Catalytic activity/Vol] 37 U/L Normal 16-63 [facility] Comment on above: Performed By: #### C MP, HSTROPN ####[facility] Ufaypkodwj7281 [place] [address]Dr. Garima Pulliam Anion gap [Moles/Vol] 4.8 mmol/L Normal [facility] Comment on above: Performed By: #### C MP, HSTROPN ####[facility] Lpisyfkitm4787 [place] [address]Dr. Garima Pulliam AST [Catalytic activity/Vol] 21 U/L Normal 15-37 [facility] Comment on above: Performed By: #### C DAVID, HSTROPN ####[facility] Drpenthyos[address] [place], [place] [address]Dr. Garima Pulliam Bilirubin [Mass/Vol] 0.3 mg/dL Normal 0.2-1.0 [facility] Comment on above: Performed By: #### C DAVID, HSTROPN ####[facility] Ofhbgteikb87[address] [place], [place] [address]Dr. Garima Pulliam Calcium [Mass/Vol] 8.9 mg/dL Normal 8.5-10.1 [facility] Comment on above: Performed By: #### C DAVID, HSTROPN ####[facility] Cfrwmljche[address] [place], [place] [address]Dr. Garima Pulliam Chloride [Moles/Vol] 106 mmol/L Normal 98-107 [facility] Comment on above: Performed By: #### C MP, HSTROPN ####[facility] Ducjrugyud[address] [place], [place] [address]Dr. Garima Pulliam CO2 [Moles/Vol] 29.8 mmol/L Normal 21.0-32.0 [facility] Comment on above: Performed By: #### C MP, HSTROPN ####[facility] Mlduveoobq[address] [place], [place] [address]Dr. Yilan Pulliam Creatinine [Mass/Vol] 0.68 mg/dL Critically low 0.70-1.30 [facility] Comment on above: Performed By: #### C DAVID, HSTROPN ####[facility] Jehnhkgkql[address] [place] [address]Dr. Garima Pulliam EGFR-AF [place]IZ[place] >60 Normal >=60 [facility] Comment on above: Performed By: #### C DAVID, HSTROPN ####[facility] Lseiyseqnj[address] [place] [address]Dr. Garima Pulliam EGFR-NON AF CITIZEN OF [place] >60 Normal >=60 [facility] Comment on above: Performed By: #### C DAVID, HSTROPN ####[facility] Zkuuqvrhhu4059 [place] [address]Dr. Garima Pulliam Globulin (S) [Mass/Vol] 2.8 g/dL Normal [facility] Comment on above: Performed By: #### C DAVID, HSTROPN ####[facility] Qhfwfksmhr2275 [place] [address]Dr. Garima Pulliam Glucose [Mass/Vol] 133 mg/dL Critically high 74-106 [facility] Comment on above: Performed By: #### C DAVID, HSTROPN ####[facility] Imzcsknthx8548 [place] [address]Dr. Garima Pulliam Potassium [Moles/Vol] 3.6 mmol/L Normal 3.5-5.1 [facility] Comment on above: Performed By: #### C DAVID, HSTROPN ####[facility] Ethsjzzjsl4878 [place] [address]Dr. Garima Pulliam Protein [Mass/Vol] 6.3 g/dL Critically low 6.4-8.2 [facility] Comment on above: Performed By: #### C DAVID, HSTROPN ####[facility] Ejsljyeahv[address] [place] [address]Dr. Garima Pulliam Sodium [Moles/Vol] 137 mmol/L Normal 136-145 [facility] Comment on above: Performed By: #### C DAVID, HSTROPN ####[facility] Jtxiiptuss3927 [place] [phone]. Garima Pulliam Urea nitrogen [Mass/Vol] 15.0 mg/dL Normal 7.0-18.0 The [facility] Comment on above: Performed By: #### C MP, HSTROPN ####[facility] Xnxvnlrugq0[address] [place] [id number]. Garima Pulliam Urea nitrogen/Creatinine [Mass ratio] 22.1 mg/mg Normal [facility] Comment on above: Performed By: #### C MP, HSTROPN ####[facility] Azsdmhgksv23[address] [place] [phone]. Garima Pulliam TROPONIN, HIGH SENSITIVITYon 09-26-2022 HSTROP 12.8 pg/mL Normal 4.0-76.1 [facility] Comment on above: Result Comment: CUT- OFF POINTS HAVE BEEN ESTABLISHED BASED ON THE FOURTH UNIVERSAL DEFINITIONS OF MYOCARDIALINFARCTION. THE UPPER REFERENCE LIMIT (URL) OF TROPONIN, DEFINED THE 99TH PERCENTILE OFcTnI DISTRIBUTION IN A REFERENCE POPULATION, HAS BEEN CONFIRMED THE DECISION THRESHOLDFOR [place] DIAGNOSIS. Performed By: #### C MP, HSTROPN ####[facility] Huuoeobctq[address] [place] [address]Dr. Garima Pulliam XR CHEST 1 Von 09-26-2022 XR CHEST 1 V Normal [facility] XR CHEST 1 Von 09-16-2022 XR CHEST 1 V Normal [facility] CBC AUTO DIFFon 09-15-2022 BASO # 0.0 103/ul Normal 0.0-0.1 [facility] Comment on above: Performed By: #### C BC ####[facility] Rckgkugryw6128 [place] [phone]. Garima Heraclio Basophils/100 WBC (Bld) 0.1 % Critically low 0.2-2.0 [facility] Comment on above: Performed By: #### C BC ####[facility] Aulcbnxqrm6479 [place] [phone]. Garima Heraclio EO # 0.0 103/ul Normal 0.0-0.7 [facility] Comment on above: Performed By: #### C BC ####[facility] Akvzgfydru7164 [place] [phone]. Garima Pulliam Eosinophils/100 WBC (Bld) 0.1 % Critically low 0.9-7.0 [facility] Comment on above: Performed By: #### C BC ####[facility] Bwczumobln0[address] [place] [address]Dr. Garima Pulliam Erythrocyte distribution width (RBC) [Ratio] 14.1 % Normal 11.0-15.0 [facility] Comment on above: Performed By: #### C BC ####[facility] Myicyzemdr[address] [place], [place] [address]Dr. Garima Pulliam Hematocrit (Bld) [Volume fraction] 46.1 % Normal 42.0-54.0 [facility] Comment on above: Performed By: #### C BC ####[facility] Bxjkieolmz[address] [place], [place] [address]Dr. Garima Pulliam Hemoglobin (Bld) [Mass/Vol] 15.0 g/dL Normal 14.0-18.0 [facility] Comment on above: Performed By: #### C BC ####[facility] Qwumkktpcm86[address] [place], [place] [address]Dr. Garima Pulliam IG # 0.03 10e3/ul Normal 0.00-0.03 [facility] Comment on above: Performed By: #### C BC ####[facility] Bgzoywraxf[address] [place], [place] [address]Dr. Garima Pulliam IG % 0.3 % Normal 0.0-0.5 [facility] Comment on above: Performed By: #### C BC ####[facility] Lweoyfkvuz8[address] [place], [place] [address]Dr. Garima Pulliam LYMPH # 0.6 103/ul Critically low 1.2-3.8 [facility] Comment on above: Performed By: #### C BC ####[facility] Qrfkmyqbtd[address] [place], [place] [address]Dr. Garima Pulliam Lymphocytes/100 WBC (Bld) 5.8 % Critically low 20.5-60.0 [facility] Comment on above: Performed By: #### C BC ####[facility] Hkmzikrvyx4194 [place] [phone]. Garima Pulliam MANUAL DIFF REQ NO Normal [facility] Comment on above: Performed By: #### C BC ####[facility] Awubydvyeo2743 [place] [phone]. Garima Pulliam MCH (RBC) [Entitic mass] 30.2 pg Normal 25.9-34.0 [facility] Comment on above: Performed By: #### C BC ####[facility] Gjlajwlcmv4979 [place] [phone]. Garima Pulliam MCHC (RBC) [Mass/Vol] 32.5 g/dL Normal 29.9-35.2 [facility] Comment on above: Performed By: #### C BC ####[facility] Trlidlgktg8[address] [place], [place] [address]Dr. Garima Pulliam MCV (RBC) [Entitic vol] 92.8 fL Normal 80.0-94.0 [facility] Comment on above: Performed By: #### C BC ####[facility] W[address]stw[address] [place], [place] [id number]. Garima Pulliam MONO # 0.3 103/ul Normal 0.3-0.8 [facility] Comment on above: Performed By: #### C BC ####[facility] Yabvmvybwo11[address] [place], [place] [address]Dr. Garima Pulliam Monocytes/100 WBC (Bld) 3.2 % Normal 1.7-12.0 [facility] Comment on above: Performed By: #### C BC ####[facility] Wplrvlgkak[address] [place], [place] [address]Dr. Garima Pulliam NEUT # 9.8 103/ul Critically high 1.4-6.5 The [facility] Comment on above: Performed By: #### C BC ####[facility] Duroewarxa[address] [place], [place] [id number]. Garima Pulliam Neutrophils/100 WBC (Bld) 90.5 % Critically high 43.0-75.0 [facility] Comment on above: Performed By: #### C BC ####[facility] Oqunujllwr0869 [place] [address]Dr. Garima Pulliam Platelet mean volume (Bld) [Entitic vol] 9.4 fL Critically low 9.5-13.5 [facility] Comment on above: Performed By: #### C BC ####[facility] Wcqribcbxx4604 [place] [address]Dr. Garima Pulliam PLT 208 103/ul Normal 150-450 [facility] Comment on above: Performed By: #### C BC ####[facility] Ugnkodpmlr[address] [place], [place] [address]Dr. Garima Pulliam RBC 4.97 106/ul Normal 4.70-6.10 [facility] Comment on above: Performed By: #### C BC ####[facility] Bwoteqrfvy127[address] [place], [place] [address]Dr. Garima Pulliam WBC 10.8 103/ul Normal 4.0-11.0 [facility] Comment on above: Performed By: #### C BC ####[facility] Vaftwqhpjr13[address] [place], [place] [address]Dr. Garima Pulliam PROF 14(COMP METB)on 022 Albumin [Mass/Vol] 4.0 g/dL Normal 3.4-5.0 [facility] Comment on above: Performed By: #### C MP ####[facility] Dyqontmssf824[address] [place], [place] [address]Dr. Garima Pulliam Albumin/Globulin [Mass ratio] 1.5 {ratio} Normal [facility] Comment on above: Performed By: #### C MP ####[facility] Awutccwkpi[address] [place], [place] [address]Dr. Garima Pulliam ALP [Catalytic activity/Vol] 73 U/L Normal 46-116 [facility] Comment on above: Performed By: #### C MP ####[facility] Uqdwpatdqq[address] [place], [place] [address]Dr. Garima Pulliam ALT [Catalytic activity/Vol] 42 U/L Normal 16-63 [facility] Comment on above: Performed By: #### C MP ####[facility] Votxdjxjwi5[address] [place] [address]Dr. Garima Pulliam Anion gap [Moles/Vol] 9.1 mmol/L Normal [facility] Comment on above: Performed By: #### C MP ####[facility] Scjakzpwdp95[address] [place] [address]Dr. Garima Pulliam AST [Catalytic activity/Vol] 28 U/L Normal 15-37 [facility] Comment on above: Performed By: #### C MP ####[facility] Wztafvzxve80[address] [place] [address]Dr. Garima Pulliam Bilirubin [Mass/Vol] 0.6 mg/dL Normal 0.2-1.0 [facility] Comment on above: Performed By: #### C MP ####[facility] Oklkyhggug[address] [place], [place] [address]Dr. Garima Pulliam Calcium [Mass/Vol] 8.6 mg/dL Normal 8.5-10.1 [facility] Comment on above: Performed By: #### C MP ####[facility] Tmylnlulue[address] [place], [place] [address]Dr. Garima Pulliam Chloride [Moles/Vol] 105 mmol/L Normal 98-107 [facility] Comment on above: Performed By: #### C MP ####[facility] Fwikqnopai12[address] [place], [place] [address]Dr. Garima Pulliam CO2 [Moles/Vol] 28.5 mmol/L Normal 21.0-32.0 The [facility] Comment on above: Performed By: #### C MP ####[facility] Rkcxhbcrkh187[address] [place], [place] [address]Dr. Garima Pulliam Creatinine [Mass/Vol] 0.78 mg/dL Normal 0.70-1.30 [facility] Comment on above: Performed By: #### C MP ####[facility] Pm[address]wsoenv6[address] [place] [address]Dr. Garima Pulliam EGFR-AF [place]IZ[place] >60 Normal >=60 The [facility] Comment on above: Performed By: #### C MP ####[facility] Rotyvxedsy[address] [place] [address]Dr. Garima Pulliam EGFR-NON AF CITIZEN OF [place] >60 Normal >=60 [facility] Comment on above: Performed By: #### C MP ####[facility] Orfzyvurbz9[address] [place] [address]Dr. Garima Pulliam Globulin (S) [Mass/Vol] 2.7 g/dL Normal [facility] Comment on above: Performed By: #### C MP ####[facility] Oyiqeoyiic364[address] [place] [address]Dr. Garima Pulliam Glucose [Mass/Vol] 220 mg/dL Critically high 74-106 [facility] Comment on above: Performed By: #### C MP ####[facility] Anaqhxosjt[address] [place], [place] [address]Dr. Garima Pulliam Potassium [Moles/Vol] 3.6 mmol/L Normal 3.5-5.1 [facility] Comment on above: Performed By: #### C MP ####[facility] Rekfekbucf[address] [place], [place] [address]Dr. Garima Pulliam Protein [Mass/Vol] 6.7 g/dL Normal 6.4-8.2 The [facility] Comment on above: Performed By: #### C MP ####[facility] Qidsbwavau[address] [place], [place] [address]Dr. Garima Pulliam Sodium [Moles/Vol] 139 mmol/L Normal 136-145 [facility] Comment on above: Performed By: #### C MP ####[facility] Enxbspcvmw8[address] [place], [place] [address]Dr. Garima Pulliam Urea nitrogen [Mass/Vol] 11.0 mg/dL Normal 7.0-18.0 [facility] Comment on above: Performed By: #### C MP ####[facility] Manvrkuckv7[address] [place], [place] [address]Dr. Garima Pulliam Urea nitrogen/Creatinine [Mass ratio] 14.1 mg/mg Normal [facility] Comment on above: Performed By: #### C MP ####[facility] U[address]cv[address] [place], [place] [address]Dr. Garima Pulliam CARDIAC NASH 3-6on 2 CK [Catalytic activity/Vol] 240 U/L Normal 39-308 [facility] Comment on above: Performed By: #### C MREP ####[facility] Xvieyiwofa0339 [place], [place] [address]Aj. Garima Pulliam CK.MB [Mass/Vol] 10.38 ng/mL Critically high <=3.60 [facility] Comment on above: Performed By: #### C MREP ####[facility] Yhudbtroio[address] [place] [phone]. Garima Pulliam HSTROP 18.5 pg/mL Normal 4.0-76.1 [facility] Comment on above: Result Comment: CUT- OFF POINTS HAVE BEEN ESTABLISHED BASED ON THE FOURTH UNIVERSAL DEFINITIONS OF MYOCARDIALINFARCTION. THE UPPER REFERENCE LIMIT (URL) OF TROPONIN, DEFINED THE 99TH PERCENTILE OFcTnI DISTRIBUTION IN A REFERENCE POPULATION, HAS BEEN CONFIRMED THE DECISION THRESHOLDFOR [place] DIAGNOSIS. Performed By: #### C MREP ####[facility] Ojvcaxgmjb3583 [place] [phone]. Garima Pulliam CK [Catalytic activity/Vol] 257 U/L Normal 39-308 [facility] Comment on above: Performed By: #### C MREP ####[facility] Yuyssdiuwl2630 [place] [phone]. Garima Pulliam CK.MB [Mass/Vol] 9.89 ng/mL Critically high <=3.60 [facility] Comment on above: Performed By: #### C MREP ####[facility] Wmvmpkxlba6387 [place] [phone]. Garima Pulliam HSTROP 16.9 pg/mL Normal 4.0-76.1 [facility] Comment on above: Result Comment: CUT- OFF POINTS HAVE BEEN ESTABLISHED BASED ON THE FOURTH UNIVERSAL DEFINITIONS OF MYOCARDIALINFARCTION. THE UPPER REFERENCE LIMIT (URL) OF TROPONIN, DEFINED THE 99TH PERCENTILE OFcTnI DISTRIBUTION IN A REFERENCE POPULATION, HAS BEEN CONFIRMED THE DECISION THRESHOLDFOR [place] DIAGNOSIS. Performed By: #### C MREP ####[facility] Uyfgwsajkt13[address] [place] [address]Dr. Garima Pulliam CBC AUTO DIFFon 09-13-2022 BASO # 0.0 103/ul Normal 0.0-0.1 [facility] Comment on above: Performed By: #### C BC ####[facility] Xwilklovyz[address] [place], [place] [address]Dr. Chapisrenu Pulliam Basophils/100 WBC (Bld) 0.1 % Critically low 0.2-2.0 [facility] Comment on above: Performed By: #### C BC ####[facility] S[address]wszbmciw[address] [place], [place] [address]Dr. Chapisrenu Pulliam EO # 0.0 103/ul Normal 0.0-0.7 [facility] Comment on above: Performed By: #### C BC ####[facility] Btzhkwrirq[address] [place], [place] [address]Dr. Chapisrenu Pulliam Eosinophils/100 WBC (Bld) 0.0 % Critically low 0.9-7.0 [facility] Comment on above: Performed By: #### C BC ####[facility] Vunvtbypnp[address] [place], [place] [address]Dr. Chapisrenu Pulliam Erythrocyte distribution width (RBC) [Ratio] 13.6 % Normal 11.0-15.0 [facility] Comment on above: Performed By: #### C BC ####[facility] Tmzqvfolgh[address] [place], [place] [address]Dr. Garima Pulliam Hematocrit (Bld) [Volume fraction] 48.2 % Normal 42.0-54.0 [facility] Comment on above: Performed By: #### C BC ####[facility] Orxpskmlis[address] [place], [place] [address]Dr. Chapisrenu Pulliam Hemoglobin (Bld) [Mass/Vol] 16.0 g/dL Normal 14.0-18.0 [facility] Comment on above: Performed By: #### C BC ####[facility] Zjbkhhzram[address] [place], [place] [address]Dr. Garima Pulliam IG # 0.02 10e3/ul Normal 0.00-0.03 [facility] Comment on above: Performed By: #### C BC ####[facility] Gevkmzwsek1147 [place] [phone]. Garima Pulliam IG % 0.3 % Normal 0.0-0.5 [facility] Comment on above: Performed By: #### C BC ####[facility] Pygilzltdu3952 [place] [phone]. Garima Heraclio LYMPH # 0.5 103/ul Critically low 1.2-3.8 [facility] Comment on above: Performed By: #### C BC ####[facility] Wfxizfbgms2566 [place] [phone]. Chapisrenu Pulliam Lymphocytes/100 WBC (Bld) 7.7 % Critically low 20.5-60.0 [facility] Comment on above: Performed By: #### C BC ####[facility] Zqizjjutvm50[address] [place] [address]Dr. Garima Pulliam MANUAL DIFF REQ NO Normal [facility] Comment on above: Performed By: #### C BC ####[facility] Wtdhltaryr2353 [place] [phone]. Garima Pulliam MCH (RBC) [Entitic mass] 30.6 pg Normal 25.9-34.0 [facility] Comment on above: Performed By: #### C BC ####[facility] Kgxwcfriyc3893 [place] [phone]. Garima Heraclio MCHC (RBC) [Mass/Vol] 33.2 g/dL Normal 29.9-35.2 [facility] Comment on above: Performed By: #### C BC ####[facility] Iwkbscdtjm7694 [place] [phone]. Garima Pulliam MCV (RBC) [Entitic vol] 92.2 fL Normal 80.0-94.0 [facility] Comment on above: Performed By: #### C BC ####[facility] I[address]lvbuy[address] [place], [place] [address]Dr. Garima Pulliam MONO # 0.0 103/ul Critically low 0.3-0.8 [facility] Comment on above: Performed By: #### C BC ####[facility] Nhkqdgnptu3282 [place] [phone]. Garima Pulliam Monocytes/100 WBC (Bld) 0.4 % Critically low 1.7-12.0 [facility] Comment on above: Performed By: #### C BC ####[facility] Gxapyeclde0494 [place] [phone]. Garima Pulliam NEUT # 6.2 103/ul Normal 1.4-6.5 [facility] Comment on above: Performed By: #### C BC ####[facility] Zgnhbjexza6562 [place] [address]Dr. Garima Pulliam Neutrophils/100 WBC (Bld) 91.5 % Critically high 43.0-75.0 [facility] Comment on above: Performed By: #### C BC ####[facility] Jfnuljtbmy9937 [place] [address]Dr. Garima Pulliam Platelet mean volume (Bld) [Entitic vol] 8.7 fL Critically low 9.5-13.5 [facility] Comment on above: Performed By: #### C BC ####[facility] Atukpdusew[address] [place], [place] [address]Dr. Garima Pulliam PLT 179 103/ul Normal 150-450 [facility] Comment on above: Performed By: #### C BC ####[facility] Rpnqnlqdnl5139 [place] [phone]. Garima Pulliam RBC 5.23 106/ul Normal 4.70-6.10 [facility] Comment on above: Performed By: #### C BC ####[facility] Jhiwnwiqyp1439 [place] [phone]. Garima Pulliam WBC 6.7 103/ul Normal 4.0-11.0 [facility] Comment on above: Performed By: #### C BC ####[facility] Iucjwdbyfq[address] [place], [place] [address]DrAdalberto Garima Heraclio PROF CHEM 8 (BAS METB)on Anion gap [Moles/Vol] 12.1 mmol/L Normal Th [facility] Comment on above: Performed By: #### B MP ####[facility] Rmfhdcowww4[address] [place] [address]Dr. Garima Pulliam Calcium [Mass/Vol] 8.7 mg/dL Normal 8.5-10.1 [facility] Comment on above: Performed By: #### B MP ####[facility] Ukvzuwlmej7306 [place] [phone]. Garima Pulliam Chloride [Moles/Vol] 105 mmol/L Normal 98-107 [facility] Comment on above: Performed By: #### B MP ####[facility] Ledvlpnjfx05[address] [place] [address]Dr. Garima Pulliam CO2 [Moles/Vol] 25.5 mmol/L Normal 21.0-32.0 [facility] Comment on above: Performed By: #### B MP ####[facility] [address]meszhvfpd[address] [place], [place] [address]Dr. Garima Pulliam Creatinine [Mass/Vol] 0.63 mg/dL Critically low 0.70-1.30 [facility] Comment on above: Performed By: #### B MP ####[facility] Pqqigczlkj[address] [place] [address]Dr. Garima Pulliam EGFR-AF [place]IZ[place] >60 Normal >=60 [facility] Comment on above: Performed By: #### B MP ####[facility] Srcqbtirco98[address] [place] [address]Dr. Garima Pulliam EGFR-NON AF [place]IZEN OF [place] >60 Normal >=60 [facility] Comment on above: Performed By: #### B MP ####[facility] Xszjzvunap[address] [place] [address]Dr. Garima Pulliam Glucose [Mass/Vol] 162 mg/dL Critically high 74-106 [facility] Comment on above: Performed By: #### B MP ####[facility] Pxuxaymucw[address] [place] [address]Dr. Garima Pulliam Potassium [Moles/Vol] 3.6 mmol/L Normal 3.5-5.1 [facility] Comment on above: Performed By: #### B MP ####[facility] Xxtkrpgyji5509 [place] [phone]. Garima Pulliam Sodium [Moles/Vol] 139 mmol/L Normal 136-145 [facility] Comment on above: Performed By: #### B MP ####[facility] Kgiudbqtvf9523 [place] [phone]. Garima Heraclio Urea nitrogen [Mass/Vol] 9.0 mg/dL Normal 7.0-18.0 [facility] Comment on above: Performed By: #### B MP ####[facility] Hwxgpxqxsm0381 [place] [phone]. Garima Pulliam Urea nitrogen/Creatinine [Mass ratio] 14.3 mg/mg Normal [facility] Comment on above: Performed By: #### B DAVID ####[facility] Dtkptjbmkm7013 [place] [address]Dr. Garima Pulliam CARDIAC NASH ADMITon 022 CK [Catalytic activity/Vol] 304 U/L Normal 39-308 [facility] Comment on above: Performed By: #### B DAVID, NANCY ####[facility] Vdquwriuts2131 [place] [phone]. Garima Pulliam CK.MB [Mass/Vol] 11.81 ng/mL Critically high <=3.60 Th [facility] Comment on above: Performed By: #### B DAVID, NANCY ####[facility] Ttpupvshzd[address] [place] [address]Dr. Chapsirenu Pulliam HSTROP 13.3 pg/mL Normal 4.0-76.1 [facility] Comment on above: Result Comment: CUT- OFF POINTS HAVE BEEN ESTABLISHED BASED ON THE FOURTH UNIVERSAL DEFINITIONS OF MYOCARDIALINFARCTION. THE UPPER REFERENCE LIMIT (URL) OF TROPONIN, DEFINED THE 99TH PERCENTILE OFcTnI DISTRIBUTION IN A REFERENCE POPULATION, HAS BEEN CONFIRMED THE DECISION THRESHOLDFOR [place] DIAGNOSIS. Performed By: #### B DAVID, CMADM ####[facility] Nvitglsvsl[address] [place] [address]Dr. Garima Pulliam DORIS 133 ng/mL Critically high 16-96 [facility] Comment on above: Performed By: #### B ERVIN HERNANDEZDM ####[facility] Awobzvhodw55[address] [place] [phone]. Garima Heraclio CBC AUTO DIFFon 09-12-2022 BASO # 0.0 103/ul Normal 0.0-0.1 [facility] Comment on above: Performed By: #### C BC ####[facility] Xllaipxpwr6548 [place] [phone]. Chapisrenu Pulliam Basophils/100 WBC (Bld) 0.2 % Normal 0.2-2.0 [facility] Comment on above: Performed By: #### C BC ####[facility] Kccwgpmzgd[address] [place], [place] [address]Dr. Chapisrenu Pulliam EO # 0.2 103/ul Normal 0.0-0.7 [facility] Comment on above: Performed By: #### C BC ####[facility] Iukhgxlwte[address] [place], [place] [address]Dr. Chapisrenu Pulliam Eosinophils/100 WBC (Bld) 1.3 % Normal 0.9-7.0 [facility] Comment on above: Performed By: #### C BC ####[facility] [address]vjbeygw[address] [place], [place] [address]Dr. Garima Heraclio Erythrocyte distribution width (RBC) [Ratio] 13.7 % Normal 11.0-15.0 [facility] Comment on above: Performed By: #### C BC ####[facility] [address]fxqdxlwda[address] [place], [place] [address]Dr. Garima Heraclio Hematocrit (Bld) [Volume fraction] 46.4 % Normal 42.0-54.0 [facility] Comment on above: Performed By: #### C BC ####[facility] [address] [place], [place] [address]Dr. Chapisrenu Pulliam Hemoglobin (Bld) [Mass/Vol] 15.7 g/dL Normal 14.0-18.0 [facility] Comment on above: Performed By: #### C BC ####[facility] [address] [place], [place] [address]Dr. Garima Pulliam IG # 0.04 10e3/ul Critically high 0.00-0.03 [place] Comment on above: Performed By: #### C BC ####[facility] [address] [place] [id number] Chapisrenu Pulliam IG % 0.3 % Normal 0.0-0.5 [facility] Comment on above: Performed By: #### C BC ####[facility] [address] [place] [id number] Pulliam LYMPH # 1.7 103/ul Normal 1.2-3.8 [facility] Comment on above: Performed By: #### C BC ####[facility] [address] [place] [id number] Pullima Lymphocytes/100 WBC (Bld) 11.5 % Critically low 20.5-60.0 [facility] Comment on above: Performed By: #### C BC ####[facility] [address] [place] [address]DrAdalberto Pulliam MANUAL DIFF REQ NO Normal [facility] Comment on above: Performed By: #### C BC ####[facility] [address] [place] [id number] Garima Heraclio MCH (RBC) [Entitic mass] 31.0 pg Normal 25.9-34.0 [facility] Comment on above: Performed By: #### C BC ####[facility] [address] [place] [id number] Chapisrenu Pulliam MCHC (RBC) [Mass/Vol] 33.8 g/dL Normal 29.9-35.2 [facility] Comment on above: Performed By: #### C BC ####[facility] [address] [place] [id number] Chapisrenu Pulliam MCV (RBC) [Entitic vol] 91.7 fL Normal 80.0-94.0 [facility] Comment on above: Performed By: #### C BC ####[facility] [address] [place] [id number] Pulliam MONO # 0.8 103/ul Normal 0.3-0.8 [facility] Comment on above: Performed By: #### C BC ####[facility] [address] [place] [id number]. Garima Pulliam Monocytes/100 WBC (Bld) 5.2 % Normal 1.7-12.0 [facility] Comment on above: Performed By: #### C BC ####[facility] [address] [place] [id number]. Garima Pulliam NEUT # 11.7 103/ul Critically high 1.4-6.5 [facility] Comment on above: Performed By: #### C BC ####[facility] [address] [place] [address]Dr. Garima Pulliam Neutrophils/100 WBC (Bld) 81.5 % Critically high 43.0-75.0 [facility] Comment on above: Performed By: #### C BC ####[facility] [address] [place] [address]Dr. Garima Pulliam Platelet mean volume (Bld) [Entitic vol] 8.6 fL Critically low 9.5-13.5 [facility] Comment on above: Performed By: #### C BC ####[facility] [address] [place], [place] [address]Dr. Garima Pulliam PLT 191 103/ul Normal 150-450 [facility] Comment on above: Performed By: #### C BC ####[facility] [address] [place] [id number]. Garima Pulliam RBC 5.06 106/ul Normal 4.70-6.10 [facility] Comment on above: Performed By: #### C BC ####[facility] [address] [place] [id number]. Garima Pulliam WBC 14.4 103/ul Critically high 4.0-11.0 [facility] Comment on above: Performed By: #### C BC ####[facility] [address] [place] [id number]. Garima Pulliam [facility]on [facility]24 SARS-CoV-2 (COVID-19) RNA MARIE+probe Ql (Unsp spec) Not detected Normal NOT DETECTED [facility] Comment on above: Result Comment: When [...] for this test is supported by the Telephone Interceptor Operator of Health and Human Service's declaration that [...] be used). Performed By: #### C VDTBH ####[facility] [address] [place] [address]Dr. Garima Pulliam LACTATE/LACTIC ACIDon 2021 Lactate [Moles/Vol] 1.0 mmol/L Normal 0.4-1.9 [facility] Comment on above: Performed By: #### L ACT ####[facility] [address] [place] [address]Dr. Garima Pulliam PROF CHEM 8 (BAS METB)on Anion gap [Moles/Vol] 11.6 mmol/L Normal [facility] Comment on above: Performed By: #### B MP, CMADM ####[facility] [address] [place] [address]Dr. Garima Pulliam Calcium [Mass/Vol] 9.2 mg/dL Normal 8.5-10.1 [facility] Comment on above: Performed By: #### B MP, CMADM ####[facility] [address] [place] [address]Dr. Garima Pulliam Chloride [Moles/Vol] 105 mmol/L Normal 98-107 [facility] Comment on above: Performed By: #### B DAVID, CMADM ####[facility] [address] [place] [address]Dr. Garima Pulliam CO2 [Moles/Vol] 25.9 mmol/L Normal 21.0-32.0 [facility] Comment on above: Performed By: #### B DAVID, CMADM ####[facility] [address] [place] [address]Dr. Garima Pulliam Creatinine [Mass/Vol] 0.72 mg/dL Normal 0.70-1.30 [facility] Comment on above: Performed By: #### B DAVID, CMADM ####[facility] [address] [place] [address]Dr. Garima Pulliam EGFR-AF CITIZEN [place] >60 Normal >=60 [facility] Comment on above: Performed By: #### B DAVID, CMADM ####[facility] [address] [place] [address]Dr. Garima Pulliam EGFR-NON AF CITIZEN OF [place] >60 Normal >=60 [facility] Comment on above: Performed By: #### B DVAID, CMADM ####[facility] [address] [place] [address]Dr. Garima Pulliam Glucose [Mass/Vol] 111 mg/dL Critically high 74-106 [facility] Comment on above: Performed By: #### B DAVID, CMADM ####[facility] [address] [place] [address]Dr. Garima Pulliam Potassium [Moles/Vol] 3.5 mmol/L Normal 3.5-5.1 [facility] Comment on above: Performed By: #### B DAVID, CMADM ####[facility] [address] [place] [address]Dr. Garima Pulliam Sodium [Moles/Vol] 139 mmol/L Normal 136-145 [facility] Comment on above: Performed By: #### B DAVID, CMADM ####[facility] [address] [place] [address]Dr. Garima Pulliam Urea nitrogen [Mass/Vol] 7.0 mg/dL Normal 7.0-18.0 [facility] Comment on above: Performed By: #### B NANCY HERNANDEZ ####[facility] [address] [place], [place] [address]Qv. Garima Heraclio Urea nitrogen/Creatinine [Mass ratio] 9.7 mg/mg Normal [facility] Comment on above: Performed By: #### B DAVID, NANCY ####[facility] [address] [place], [place] [address]Md. Garima Pulliam XR CHEST 1 Von 09-12-2022 XR CHEST 1 V Normal [facility] Encounters Encounter Date Encounter Type Care [...] Facility:H1 Payers Date Payer Category Payer Unknown [id number] 1960 Medicaid [id number] 1960 Unknown [id number] 1960 Unknown [id number] 1955 Unknown [id number] 2.16.84 0.1.864473.3.579.2.593 1954 Unknown [id number] 2.16.84 0.1.844261.3.579.2.593 1954 Unknown [id number] 2.16.84 0.1.513338.3.579.2.593 1954 Unknown [id number] 2.16.84 0.1.860937.3.579.2.593 1954 Unknown [id number] 2.16.84 0.1.139232.3.579.2.593 1954 Unknown [id number] 2.16.84 0.1.639240.3.579.2.593 1954 Unknown [id number] 2.16.84 0.1.349472.3.579.2.593 1954 Unknown [id number] 2.16.84 0.1.430368.3.579.2.593 1954 Unknown [id number] 2.16.84 0.1.075936.3.579.2.593 1954 Unknown [id number] 2.16.84 0.1.472182.3.579.2.593 1954 Unknown [id number] 2.16.84 0.1.926858.3.579.2.593 1954 Unknown [id number] 2.16.84 0.1.699975.3.579.2.593 1954 Unknown [id number] 2.16.84 0.1.360518.3.579.2.593 1954 Unknown [id number] 2.16.84 0.1.998678.3.579.2.593 1954 Unknown [id number] 2.16.84 0.1.272109.3.579.2.593 1954 Unknown [id number] 2.16.84 0.1.196543.3.579.2.593 1954 Unknown [id number] 2.16.84 0.1.560384.3.579.2.593 1954 Unknown [id number] 2.16.84 0.1.060077.3.579.2.593 1954 Unknown [id number] 2.16.84 0.1.104706.3.579.2.593 1954 Unknown [id number] 2.16.84 0.1.582901.3.579.2.593 Summary Purpose Family History No Family History Records Found Advance Directives No Advanced Directives Records Found Additional Source Comments (unrecognized sect ion and content) No Status Records Found INFORMATION SOURCE (unrecogn ized section and content) DATE CREATED AUTHOR 04/08/2023 [facility] FOR RECORDS PERTAINING TO PATIENTS [...] BE BASED ON THE PRIMARY CLINICAL RECORDS. [facility]. provides no warranty or guarantee of the accuracy or completeness of information in this document.
--- NOTE | 2024-01-27 22:49 | ED_ITS ---
HPI - SOB/Dyspnea General Chief Complaint: Shortness of Breath/Dyspnea Stated Complaint: Difficulty breathing Time Seen by Provider: 01/27/24 22:47 Source: patient Mode of arrival: walk-in History of Present Illness HPI Narrative: COPD daily smoker. presents complaining of feeling short of breath. no fever or nausea. No systemic symptoms or chest pain. Related Data Home Medications Medication Instructions Recorded Confirmed omeprazole 20 mg capsule,delayed 20 mg PO DAILY 10/22/23 01/27/24 release albuterol sulfate 2.5 mg/3 mL 2.5 mg inhalation Q6H PRN 11/02/23 01/27/24 (0.083 %) solution for nebulization shortness of breath or wheezing fluticasone 250 mcg-salmeterol 50 1 inh inhalation BID 12/25/23 01/27/24 mcg/dose blistr powdr for inhalation (Wixela Inhub) tiotropium bromide 2.5 2 inh inhalation BID 12/25/23 01/27/24 mcg/actuation mist for inhalation (Spiriva Respimat) Previous Rx's Medication Instructions Recorded albuterol sulfate 90 mcg/actuation 2 inh inhalation Q6H PRN shortness 12/17/23 aerosol inhaler of breath or wheezing #8.5 grams losartan 100 mg tablet 100 mg PO DAILY #30 tabs 12/27/23 Allergies Allergy/AdvReac Type Severity Reaction Status Date / Time No Known Drug Allergies Allergy Verified 01/27/24 22:01 [facility] Medical History (Updated 01/27/24 @ 23:54 by Júnior Andrade MD) Community acquired pneumonia ?J18.9 - Pneumonia, unspecified organism (ICD-10) Chronic obstructive pulmonary disease ?J44.9 - Chronic obstructive pulmonary disease, unspecified (ICD-10) Acute exacerbation of chronic obstructive pulmonary disease (COPD) ?J44.1 - Chronic obstructive pulmonary disease with (acute) exacerbation (ICD-10) RLL pneumonia ?J18.9 - Pneumonia, unspecified organism (ICD-10) COPD (chronic obstructive pulmonary disease) ?J44.9 - Chronic obstructive pulmonary disease, unspecified (ICD-10) Family History (Updated 12/25/23 @ 21:28 by Kym Ordaz) Mother Family history of cancer Family history of hypertension Father Family history of cancer Social History Within the past year, how often did you have a drink containing alcohol: 4 or more times a week Within the past year, how many standard drinks containing alcohol did you have on a typical day: 3 or 4 Within the past year, how often did you have six or more drinks on one occasion: less than monthly Total score: 3 Score interpretation: A score of 4 or more indicates drinking is likely to affect patient's safety. Smoking status: Current every day smoker Non-prescribed substance use: cannabis (any form) Previous occupational history: retired Highest level of school completed/degree received: high school graduate Are you now , , , , never or living with a partner: In a typical week, how many times do you talk on the telephone with family, friends, or neighbors: twice per week How often do you get together with friends or relatives: once per week How often do you attend restorationist or shinto services: never Do you belong to any clubs or organizations such as restorationist groups unions, fraternal or athletic groups, or school groups: no Total score: 1 Score interpretation: A score of less than or equal to 1 indicates the most socially isolated. Little interest or pleasure in doing things: several days Feeling down, depressed, or hopeless: not at all Feel stressed/tense/nervous/anxious/difficulty sleeping: not at all Do you think of yourself as: straight/heterosexual Gender Identity: male Exam Constitutional Vital Signs, click to edit/add: Last Vital Signs Temp 97.7 F 01/27/24 21:57 Pulse 72 01/27/24 23:16 Resp 18 01/27/24 23:16 BP 178/99 H 01/27/24 21:57 Pulse Ox 94 L 01/27/24 21:57 O2 Del Method Room Air 01/27/24 22:42 Course Vital Signs Vital signs: Vital Signs Temperature 97.7 F 01/27/24 21:57 Pulse Rate 88 01/27/24 21:57 Respiratory Rate 20 01/27/24 21:57 Blood Pressure 178/99 H 01/27/24 21:57 Pulse Oximetry 94 L 01/27/24 21:57 Oxygen Delivery Method Room Air 01/27/24 21:57 Temperature 97.7 F 01/27/24 21:57 Pulse Rate 72 01/27/24 23:16 Respiratory Rate 18 01/27/24 23:16 Blood Pressure 178/99 H 01/27/24 21:57 Pulse Oximetry 94 L 01/27/24 21:57 Oxygen Delivery Method Room Air 01/27/24 22:42 MDM - SOB/Dyspnea MDM Narrative Medical decision making narrative: patient well known to the department. COPD daily smoker and has home 02. States he feels short of breath. history and exam findings not supportive of pneumonia. Normal WBC and afebrile. Compared tonights xray with old films and appearance very similar . Patient treated with duoneb and prednisone and is now sitting in a chair in the room requesting discharge. Discharged and advised to followup with his doctor Lab Data Labs: Lab Results 01/27/24 Range/Units 22:59 WBC 8.9 (4.0-11.0) 10^3/uL RBC 4.55 L (4.70-6.10) 10^6/uL Hgb 13.6 L (14.0-18.0) g/dL Hct 42.8 (42.0-54.0) % MCV 94.1 H (80.0-94.0) fL MCH 29.9 (25.9-34.0) pg MCHC 31.8 (29.9-35.2) g/dL RDW 13.8 (11.0-15.0) % Plt Count 203 (150-450) 10^3/uL MPV 9.3 L (9.5-13.5) fL Neut % (Auto) 67.6 (43.0-75.0) % Lymph % (Auto) 21.5 (20.5-60.0) % [place] % (Auto) 9.8 (1.7-12.0) % Eos % (Auto) 0.7 L (0.9-7.0) % Baso % (Auto) 0.1 L (0.2-2.0) % Neut # (Auto) 6.0 (1.4-6.5) 10^3/uL Lymph # (Auto) 1.9 (1.2-3.8) 10^3/uL [place] # (Auto) 0.9 H (0.3-0.8) 10^3/uL Eos # (Auto) 0.1 (0.0-0.7) 10^3/uL Baso # (Auto) 0.0 (0.0-0.1) 10^3/uL Abs Immat Gran (auto) 0.03 (0.00-0.03) 10^3/uL Imm/Tot Granulo (auto) 0.3 (0.0-0.5) % Sodium 135 L (136-145) mmol/L Potassium 4.3 (3.5-5.1) mmol/L Chloride 104 (98-107) mmol/L Carbon Dioxide 25.8 (21.0-32.0) mmol/L Anion Gap 9.5 BUN 9.0 (7.0-18.0) mg/dL Creatinine 0.68 L (0.70-1.30) mg/dL Est GFR ( Amer) >60 (>=60) Est GFR (Non-Af Amer) >60 (>=60) BUN/Creatinine Ratio 13.2 Glucose 430 H (74-106) mg/dL Calcium 8.9 (8.5-10.1) mg/dL Imaging Data Chest x-ray: Radiologist's impression: ITS Impressions Chest X-Ray 01/27/24 22:49 IMPRESSION: Airspace opacity in the right lower lobe. Please correlate for pneumonia versus atelectasis. Electronically authenticated by: CHARLENE OSWALD Date: 01/27/2024 23:42 Discharge Plan Discharge Chief Complaint: Shortness of Breath/Dyspnea Clinical Impression: COPD exacerbation Patient Disposition: Home, Self-Care Prescriptions / Home Meds: No Action omeprazole 20 mg capsule,delayed release(DR/EC) 20 mg PO DAILY albuterol sulfate 2.5 mg /3 mL (0.083 %) solution for nebulization 2.5 mg inhalation Q6H PRN (Reason: shortness of breath or wheezing) Spiriva Respimat 2.5 mcg/actuation mist 2 inh inhalation BID fluticasone propion-salmeterol [Wixela Inhub] 250-50 mcg/dose blister with device 1 inh inhalation BID losartan 100 mg tablet 100 mg PO DAILY Qty: 30 11RF albuterol sulfate 90 mcg/actuation HFA aerosol inhaler 2 inh inhalation Q6H PRN (Reason: shortness of breath or wheezing) Qty: 8.5 2RF Instructions: COPD (Chronic Obstructive Pulmonary Disease) (ED) Additional Instructions: follow up with family doctor in 1-2 days Referrals: Physician,Non-Staff, MD [Primary Care Provider] - 1 week Stand Alone Forms: Portal Instructions
--- NOTE | 2024-01-27 22:49 | XR_ITS ---
The [address] [address] Patient Name: CONSTANZA BARRETO MRN: [id number] date: 1955 Sex: M Assigned Patient Location: ER Current Patient Location: ER Accession/Order Number: [id number] Exam Date: 01/27/2024 23:09 Report Date: 01/27/2024 23:42 At the request of: KENTRELL CHAPIN Procedure: XR chest 1V CXR HISTORY: Shortness of breath. COMPARISON: 01/06/2024 chest x-ray TECHNIQUE: 1 view of the chest submitted for review. FINDINGS: Lines and tubes: None Lungs are hyperaerated. Airspace opacity seen in the right lower lobe improved but not resolved compared to prior exam. No effusion. The cardiac silhouette measures within normal. Pulmonary vascularity is unremarkable. Osseous structures demonstrate old with stable left-sided rib fractures.. XR/XR chest 1V IMPRESSION: Airspace opacity in the right lower lobe. Please correlate for pneumonia versus atelectasis. Electronically authenticated by: CHARLENE OSWALD Date: 01/27/2024 23:42
[2024-01-27 23:04] LABS: Basophils Percent Auto 0.1 % (0.2-2.0); Eosinophils Absolute Auto 0.1 10^3/uL (0.0-0.7); Eosinophils Percent Auto 0.7 % (0.9-7.0); Hematocrit 42.8 % (42.0-54.0); Hemoglobin 13.6 g/dL (14.0-18.0); Immature Granulocytes Abs Auto 0.03 10^3/uL (0.00-0.03); Immature Granulocytes Pct Auto 0.3 % (0.0-0.5); Lymphocytes Absolute Auto 1.9 10^3/uL (1.2-3.8); Lymphocytes Percent Auto 21.5 % (20.5-60.0); Mean Corpuscular HGB Conc 31.8 g/dL (29.9-35.2); Mean Corpuscular Hemoglobin 29.9 pg (25.9-34.0); Mean Corpuscular Volume 94.1 fL (80.0-94.0); Mean Platelet Volume 9.3 fL (9.5-13.5); Monocytes Absolute Auto 0.9 10^3/uL (0.3-0.8); Monocytes Percent Auto 9.8 % (1.7-12.0); Neutrophils Percent Auto 67.6 % (43.0-75.0); Platelet Count 203 10^3/uL (150-450); Red Blood Count 4.55 10^6/uL (4.70-6.10); Red Cell Distribution Width 13.8 % (11.0-15.0); White Blood Count 8.9 10^3/uL (4.0-11.0)
[2024-01-27] MEDS: PREDNISONE 20 MG TABLET 60 MG PO (23:09)
[2024-01-27] MEDS: IPRATROPIUM/ALBUTEROL SULFATE 3 ML AMPUL.NEB IH (23:14)
[2024-01-27 23:16] VITALS: PULSE 72; RESP 18
[2024-01-27 23:22] LABS: Anion Gap 9.5; BUN Creatinine Ratio 13.2; Calcium 8.9 mg/dL (8.5-10.1); Carbon Dioxide 25.8 mmol/L (21.0-32.0); Chloride 104 mmol/L (98-107); Estimated GFR (African America >60 (>=60); Estimated GFR (Non-African Ame >60 (>=60); Glucose 430 mg/dL (74-106); Potassium 4.3 mmol/L (3.5-5.1); Sodium 135 mmol/L (136-145)
== END 2024-01-28 00:09 | disposition home or self-care (01) ==
PROVIDERS: Emergency Provider Internal Medicine
DX: J44.1 Chronic obstructive pulmonary disease with (acute) exacerbation (principal); R06.02 Shortness of breath; Z87.01 Personal history of pneumonia (recurrent); F17.200 Nicotine dependence, unspecified, uncomplicated
CPT/HCPCS: 36415; 71045; 80048; 85025; 94640; 99284

== ENCOUNTER 2024-01-29 02:16 | Observation (INO) | payer MEDICARE, SELFPAY ==
[2024-01-29] VITALS (16 sets, daily range): BP systolic 158–190; BP diastolic 72–82; PULSE 62–99; RESP 16–20; TEMP 36.3–36.8; O2SAT 90–97; BMI 53.8; BMI 25.2
--- NOTE | 2024-01-29 02:36 | ED_ITS ---
HPI - SOB/Dyspnea General Chief Complaint: Shortness of Breath/Dyspnea Stated Complaint: SOB Time Seen by Provider: 01/29/24 02:29 Source: patient Mode of arrival: Wheelchair Limitations: no limitations History of Present Illness HPI Narrative: This 68-year-old male who is well-known to this emergency Department has a history of chronic obstructive pulmonary disease with ongoing tobacco use presents for evaluation of shortness of breath. He was seen in this emergency department last night for the same. He was treated with steroids and DuoNeb treatment and was discharged home. The patient states he is having ongoing shortness of breath. He is also having swelling of his lower extremities that has been ongoing for months but has been increasingly worsening over a period of time. He does not take any diuretics. He has not had a fever. He denies any productive cough. He states that he has not been taking his medications as prescribed because he has been having some trouble with money. I trouble with money he means that he is out of money. He lives by himself. He goes to the [place] where he receives most of his healthcare. He does not have a local family physician. He states he has been given the name of a local physician but has not had a chance to call. He denies any abdominal pain. He has not had any nausea vomiting or diarrhea. Related Data Home Medications Medication Instructions Recorded Confirmed omeprazole 20 mg capsule,delayed 20 mg PO DAILY 10/22/23 01/29/24 release albuterol sulfate 2.5 mg/3 mL 2.5 mg inhalation Q6H PRN 11/02/23 01/29/24 (0.083 %) solution for nebulization shortness of breath or wheezing fluticasone 250 mcg-salmeterol 50 1 inh inhalation BID 12/25/23 01/29/24 mcg/dose blistr powdr for inhalation (Wixela Inhub) tiotropium bromide 2.5 2 inh inhalation BID 12/25/23 01/29/24 mcg/actuation mist for inhalation (Spiriva Respimat) Previous Rx's Medication Instructions Recorded albuterol sulfate 90 mcg/actuation 2 inh inhalation Q6H PRN shortness 12/17/23 aerosol inhaler of breath or wheezing #8.5 grams losartan 100 mg tablet 100 mg PO DAILY #30 tabs 12/27/23 Allergies Allergy/AdvReac Type Severity Reaction Status Date / Time No Known Drug Allergies Allergy Verified 01/29/24 02:30 Review of Systems ROS Status of ROS 10 or more systems reviewed and unremark able except as noted in history and below [facility] Medical History (Updated 01/29/24 @ 06:19 by Teresa Ag MD) Community acquired pneumonia ?J18.9 - Pneumonia, unspecified organism (ICD-10) Chronic obstructive pulmonary disease ?J44.9 - Chronic obstructive pulmonary disease, unspecified (ICD-10) Acute exacerbation of chronic obstructive pulmonary disease (COPD) ?J44.1 - Chronic obstructive pulmonary disease with (acute) exacerbation (ICD-10) RLL pneumonia ?J18.9 - Pneumonia, unspecified organism (ICD-10) COPD (chronic obstructive pulmonary disease) ?J44.9 - Chronic obstructive pulmonary disease, unspecified (ICD-10) Family History (Updated 12/25/23 @ 21:28 by Kym Ordaz) Mother Family history of cancer Family history of hypertension Father Family history of cancer Social History Within the past year, how often did you have a drink containing alcohol: 4 or more times a week Within the past year, how many standard drinks containing alcohol did you have on a typical day: 3 or 4 Within the past year, how often did you have six or more drinks on one occasion: less than monthly Total score: 3 Score interpretation: A score of 4 or more indicates drinking is likely to affect patient's safety. Smoking status: Current every day smoker Non-prescribed substance use: cannabis (any form) Previous occupational history: retired Highest level of school completed/degree received: high school graduate Are you now , , , , never or living with a partner: In a typical week, how many times do you talk on the telephone with family, friends, or neighbors: twice per week How often do you get together with friends or relatives: once per week How often do you attend scientologist or mosque services: never Do you belong to any clubs or organizations such as scientologist groups unions, fraternal or athletic groups, or school groups: no Total score: 1 Score interpretation: A score of less than or equal to 1 indicates the most soc ially isolated. Little interest or pleasure in doing things: several days Feeling down, depressed, or hopeless: not at all Feel stressed/tense/nervous/anxious/difficulty sleeping: not at all Do you think of yourself as: straight/heterosexual Gender Identity: male Exam Narrative Exam Narrative: Nurses note and vital signs reviewed; He is afebrile with a normal pulse, blood pressure is elevated at 174/80 and he is mildly hypoxic with pulse ox of 93 percent on room air General: The patient appears well and in no apparent distress. Patient is resting comfortably on cart. He is speaking in complete sentences with no conversational dyspnea Skin: Warm, dry, no pallor noted. There is no rash noted. Head: Normocephalic, atraumatic Eye: Normal conjunctiva, no drainage, EOMI. PERRL Ears, Nose, Mouth, and Throat: oral mucosa is moist. Cardiovascular: Regular Rate and [id number], no murmurs, rubs or gallops, pulses are brisk and equal bilaterally Respiratory: Lungs are diffusely diminished with bilateral expiratory wheezing, no rhonchi or rales appreciated, no accessory muscle use appreciated patient noted to be mildly hypoxic with pulse ox 93 percent on room air Back: non-tender, no CVA tenderness bilaterally to percussion. GI: Normal bowel sounds, no tenderness to palpation, no masses appreciated. No rebound, guarding, or rigidity noted. Musculoskeletal: 2+ pitting edema to bilateral lower extremities with mild erythema to the extremities as well Neurological: A&O x4, normal speech Psychiatric: Cooperative Constitutional Vital Signs, click to edit/add: Last Vital Signs Temp 98.3 F 01/29/24 02:27 Pulse 62 01/29/24 05:00 Resp 20 01/29/24 05:00 BP 190/76 H 01/29/24 05:00 Pulse Ox 93 L 01/29/24 05:00 O2 Del Method Room Air 01/29/24 05:00 Course Vital Signs Vital signs: Vital Signs Temperature 98.3 F 01/29/24 02:27 Pulse Rate 93 H 01/29/24 02:27 Respiratory Rate 18 01/29/24 02:27 Blood Pressure 174/80 H 01/29/24 02:27 Pulse Oximetry 93 L 01/29/24 02:27 Oxygen Delivery Method Room Air 01/29/24 02:27 Temperature 98.3 F 01/29/24 02:27 Pulse Rate 62 01/29/24 05:00 Respiratory Rate 20 01/29/24 05:00 Blood Pressure 190/76 H 01/29/24 05:00 Pulse Oximetry 93 L 01/29/24 05:00 Oxygen Delivery Method Room Air 01/29/24 05:00 MDM - SOB/Dyspnea MDM Narrative Medical decision making narrative: This 58-year-old male with a history of chronic obstructive pulmonary disease who continues to smoke and is a [facility] patient 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 He has had lower from the swelling for some period of time. He has not had any diuretics. He denied any chest pain. He was mildly hypoxic on arrival with a pulse ox of 93 percent on room air. He was given steroids yesterday. I reviewed labs from his visit yesterday. He had a normal white count and hemoglobin. His electrolytes were normal with the exception of an elevated glucose in the 400s. The patient is not diabetic and does not have any diabetic medications at home. He is also out of his respiratory medications, nebulizer treatments. An EKG was a sinus rhythm at 73 beats for minute with no acute changes. An IV was placed and he was medicated with IV fluids and a DuoNeb treatment. He has normal white count and hemoglobin. Her left electrolytes are normal the exception of a glucose of 438. He has a normal troponin and BNP despite the lower extremity swelling. 2 view chest x-ray was ordered and was reviewed by radiology and does not show any acute infiltrate. He was medicated with 8 units of subcutaneous insulin for the elevated glucose. In light of the fact the patient is not a known diabetic and has had 2 glucose readings over 400 and has ongoing shortness of breath without access to his medications he will be admitted. The case was discussed with Dr Trammell and he is accepted for admission to med/surg. Medical Records Medical records narrative: The [address] [address] XRay Report Signed Patient: CONSTANZA BARRETO MR#: [id number] : 1955 Acct:[id number] Age/Sex: 68 / M ADM Date: 01/29/24 Loc: ER Attending Dr: Ordering Physician: Teresa Ag Date of Service: 01/29/24 Procedure(s): XR chest 2V Accession Number(s): [id number] cc: Teresa Ag; Physician,Non-Staff Carlos~ The [address] [address] Patient Name: CONSTANZA BARRETO MRN: [id number] date: 1955 Sex: M Assigned Patient Location: ER Current Patient Location: ER Accession/Order Number: [id number] Exam Date: 01/29/2024 03:40 Report Date: 01/29/2024 04:45 At the request of: TERESA AG Procedure: XR chest 2V EXAM: XR chest 2V HISTORY: SPB, hx COPD COMPARISON: Portable chest 01/05/2024 TECHNIQUE: PA and lateral chest. FINDINGS: Stable bilateral lung hyperinflation. Lungs otherwise clear and expanded. Well-defined pleural margins. Normal heart size and vasculature. Atherosclerotic calcific plaque of the aortic arch. Stable multiple remote healed posterior upper left rib fractures involving left third, fourth, fifth and sixth ribs. There is some question of bridging ossification of fractures between the left fifth and sixth ribs. No acute osseous findings. XR/XR chest 2V IMPRESSION: 1. Stable chest, without acute process. 2. Stable changes of remote left upper chest wall injury with multiple healed fractures. 3. Hyperinflation of lungs consistent with COPD. Lab Data Labs: Lab Results 01/29/24 01/29/24 Range/Units 03:02 03:50 WBC 10.4 (4.0-11.0) 10^3/uL RBC 4.50 L (4.70-6.10) 10^6/uL Hgb 13.5 L (14.0-18.0) g/dL Hct 42.0 (42.0-54.0) % MCV 93.3 (80.0-94.0) fL MCH 30.0 (25.9-34.0) pg MCHC 32.1 (29.9-35.2) g/dL RDW 14.0 (11.0-15.0) % Plt Count 212 (150-450) 10^3/uL MPV 9.2 L (9.5-13.5) fL Neut % (Auto) 74.5 (43.0-75.0) % Lymph % (Auto) 17.4 L (20.5-60.0) % [place] % (Auto) 7.5 (1.7-12.0) % Eos % (Auto) 0.2 L (0.9-7.0) % Baso % (Auto) 0.1 L (0.2-2.0) % Neut # (Auto) 7.7 H (1.4-6.5) 10^3/uL Lymph # (Auto) 1.8 (1.2-3.8) 10^3/uL [place] # (Auto) 0.8 (0.3-0.8) 10^3/uL Eos # (Auto) 0.0 (0.0-0.7) 10^3/uL Baso # (Auto) 0.0 (0.0-0.1) 10^3/uL Abs Immat Gran (auto) 0.03 (0.00-0.03) 10^3/uL Imm/Tot Granulo (auto) 0.3 (0.0-0.5) % Sodium 139 (136-145) mmol/L Potassium 3.7 (3.5-5.1) mmol/L Chloride 104 (98-107) mmol/L Carbon Dioxide 29.7 (21.0-32.0) mmol/L Anion Gap 9.0 BUN 11.0 (7.0-18.0) mg/dL Creatinine 0.84 (0.70-1.30) mg/dL Est GFR ( Amer) >60 (>=60) Est GFR (Non-Af Amer) >60 (>=60) BUN/Creatinine Ratio 13.1 Glucose 438 H (74-106) mg/dL Calcium 9.4 (8.5-10.1) mg/dL Total Bilirubin 0.5 (0.2-1.0) mg/dL AST 16 (15-37) U/L ALT 38 (16-63) U/L Alkaline Phosphatase 89 (46-116) U/L Troponin I High Sens 14.3 (4.0-76.1) pg/mL NT-Pro-B Natriuret Pep 417.0 (<=900.0) pg/mL Total Protein 6.4 (6.4-8.2) g/dL Albumin 3.7 (3.4-5.0) g/dL Globulin 2.7 g/dL Albumin/Globulin Ratio 1.4 ECG Data Attestation: I personally reviewed and interpreted this ECG as follows: (Sinus rhythm at 72 beats for minute, normal axis, Q-wave in lead V1 and V2, no acute ST segment elevation or T-wave inversion) Discharge Plan Discharge Stand Alone Forms: Portal Instructions Chief Complaint: Shortness of Breath/Dyspnea Clinical Impression: COPD with acute exacerbation, Acute hyperglycemia Patient Disposition: Home, Self-Care Time of Disposition Decision: 06:19 Condition: Good Prescriptions / Home Meds: No Action omeprazole 20 mg capsule,delayed release(DR/EC) 20 mg PO DAILY albuterol sulfate 2.5 mg /3 mL (0.083 %) solution for nebulization 2.5 mg inhalation Q6H PRN (Reason: shortness of breath or wheezing) Spiriva Respimat 2.5 mcg/actuation mist 2 inh inhalation BID fluticasone propion-salmeterol [Wixela Inhub] 250-50 mcg/dose blister with device 1 inh inhalation BID losartan 100 mg tablet 100 mg PO DAILY Qty: 30 11RF albuterol sulfate 90 mcg/actuation HFA aerosol inhaler 2 inh inhalation Q6H PRN (Reason: shortness of breath or wheezing) Qty: 8.5 2RF Referrals: Physician,Non-Staff, MD [Primary Care Provider] - 1 week
--- OUTSIDE RECORDS SUMMARY | 2024-01-29 02:47 | XMS_ITS | CCD ---
Author Name Unknown Address [address] [place] [address] Organization [facility] Care Team Providers Care Sales Intern Name Role Phone REQUEST, DR NONE LISTED [...] Facility (1 source) Penicillin Drug Allergy [facility] Rep[facility] Problems Active Problems Problem Classification Problem [...] 03-27-2023 Episodic Other aftercare (1 source) Other technician terminal and repeater (current) drug therapy; Translations: [OTH HOTEL DIRECTOR CURRENT DRUG THERAPY] Onset: 04-07-2023 Episodic Other [...] BASO # 0.0 103/ul Normal 0.0-0.1 [facility] Comment on above: Performed By: #### C BC ####[facility] [address] [place], [place] [address]Sa. Garima Pulliam Basophils/100 WBC (Bld) 0.3 % Normal 0.2-2.0 [facility] Comment on above: Performed By: #### C BC ####[facility] Udlbxmrxqy7055 [place], [place] [address]JxAdalberto Pulliam EO # 0.3 103/ul Normal 0.0-0.7 [facility] Comment on above: Performed By: #### C BC ####[facility] Uzusmzivqj[address] [place] [id number]. Garima Pulliam Eosinophils/100 WBC (Bld) 2.8 % Normal 0.9-7.0 [facility] Comment on above: Performed By: #### C BC ####[facility] [address]ep[address]jwp[address] [place] [address]Dr. Garima Pulliam Erythrocyte distribution width (RBC) [Ratio] 13.4 % Normal 11.0-15.0 [facility] Comment on above: Performed By: #### C BC ####[facility] [address] [place], [place] [address]Dr. Garima Pulliam Hematocrit (Bld) [Volume fraction] 45.7 % Normal 42.0-54.0 [facility] Comment on above: Performed By: #### C BC ####[facility] [address] [place], [place] [address]Dr. Garima Pulliam Hemoglobin (Bld) [Mass/Vol] 15.2 g/dL Normal 14.0-18.0 [facility] Comment on above: Performed By: #### C BC ####[facility] [address] [place], [place] [address]Dr. Garima Pulliam IG # 0.02 10e3/ul Normal 0.00-0.03 [facility] Comment on above: Performed By: #### C BC ####[facility] [address]pksxcpz[address] [place], [place] [address]Dr. Garima Pulliam IG % 0.2 % Normal 0.0-0.5 [facility] Comment on above: Performed By: #### C BC ####[facility] [address]mxwlcizva[address] [place], [place] [address]Dr. Garima Pulliam LYMPH # 2.1 103/ul Normal 1.2-3.8 [facility] Comment on above: Performed By: #### C BC ####[facility] [address]ec[address]jthoq[address] [place], [place] [address]Dr. Garima Pulliam Lymphocytes/100 WBC (Bld) 23.7 % Normal 20.5-60.0 [facility] Comment on above: Performed By: #### C BC ####[facility] Bkuybvtzio[address] [place] [phone]. Garima Pulliam MANUAL DIFF REQ NO Normal [facility] Comment on above: Performed By: #### C BC ####[facility] Rgoagpnhpk8003 [place] [phone]. Garima Pulliam MCH (RBC) [Entitic mass] 30.4 pg Normal 25.9-34.0 [facility] Comment on above: Performed By: #### C BC ####[facility] [address] [place], [place] [address]Dr. Garima Pulliam MCHC (RBC) [Mass/Vol] 33.3 g/dL Normal 29.9-35.2 [facility] Comment on above: Performed By: #### C BC ####[facility] Ijcyizmitq[address] [place], [place] [address]Dr. Garima Pulliam MCV (RBC) [Entitic vol] 91.4 fL Normal 80.0-94.0 [facility] Comment on above: Performed By: #### C BC ####[facility] [address]ynrflweyt[address] [place], [place] [address]Dr. Garima Pulliam MONO # 0.7 103/ul Normal 0.3-0.8 [facility] Comment on above: Performed By: #### C BC ####[facility] Ybaollqprz[address] [place], [place] [address]Dr. Chapisrenu Pulliam Monocytes/100 WBC (Bld) 8.3 % Normal 1.7-12.0 [facility] Comment on above: Performed By: #### C BC ####[facility] [address] [place], [place] [address]Dr. Garima Pulliam NEUT # 5.8 103/ul Normal 1.4-6.5 [facility] Comment on above: Performed By: #### C BC ####[facility] Kxlvpldicm[address] [place], [place] [address]Dr. Garima Pulliam Neutrophils/100 WBC (Bld) 64.7 % Normal 43.0-75.0 [facility] Comment on above: Performed By: #### C BC ####[facility] Qlrxxqtvqf7503 [place] [phone]. Garima Pulliam Platelet mean volume (Bld) [Entitic vol] 8.6 fL Critically low 9.5-13.5 [facility] Comment on above: Performed By: #### C BC ####[facility] [address]iwxvtpsmw[address] [place] [address]Dr. Garima Pulliam PLT 230 103/ul Normal 150-450 [facility] Comment on above: Performed By: #### C BC ####[facility] Amth[address]kykdk8331 [place] [address]Dr. Garima Pulliam RBC 5.00 106/ul Normal 4.70-6.10 [facility] Comment on above: Performed By: #### C BC ####[facility] Avvvqxkrgx5403 [place] [address]Dr. Garima Pulliam WBC 9.0 103/ul Normal 4.0-11.0 [facility] Comment on above: Performed By: #### C BC ####[facility] Yvr[address]aw[address]we[address] [place], [place] [address]Dr. Garima Pulliam MAGNESIUMon 04-04-2023 Magnesium [Mass/Vol] 1.8 mg/dL Normal 1.8-2.4 [facility] Comment on above: Performed By: #### M G ####[facility] [address]ppurkgw[address] [place], [place] [address]Dr. Garima Pulliam PROF 14(COMP METB)on 023 Albumin [Mass/Vol] 3.8 g/dL Normal 3.4-5.0 [facility] Comment on above: Performed By: #### C MP ####[facility] [address]ctdndpwc[address] [place], [place] [address]Dr. Garima Pulliam Albumin/Globulin [Mass ratio] 1.2 {ratio} Normal [facility] Comment on above: Performed By: #### C MP ####[facility] [address]xvueezpb8[address] [place] [address]Dr. Garima Pulliam ALP [Catalytic activity/Vol] 84 U/L Normal 46-116 [facility] Comment on above: Performed By: #### C MP ####[facility] Vdbvcjczms3274 [place] [phone]. Garima Pulliam ALT [Catalytic activity/Vol] 31 U/L Normal 16-63 [facility] Comment on above: Performed By: #### C MP ####[facility] Gjdobpqmai9866 [place] [phone]. Garima Pulliam Anion gap [Moles/Vol] 12.2 mmol/L Normal Th [facility] Comment on above: Performed By: #### C MP ####[facility] Hwvmlpxjup6482 [place] [phone]. Garima Pulliam AST [Catalytic activity/Vol] 23 U/L Normal 15-37 [facility] Comment on above: Performed By: #### C MP ####[facility] [address]vw[address]ue[address] [place], [place] [address]Dr. Garima Pulliam Bilirubin [Mass/Vol] 0.5 mg/dL Normal 0.2-1.0 [facility] Comment on above: Performed By: #### C MP ####[facility] [address]twi[address] [place], [place] [address]Dr. Garima Pulliam Calcium [Mass/Vol] 9.2 mg/dL Normal 8.5-10.1 [facility] Comment on above: Performed By: #### C MP ####[facility] Fq[address]ivlyya[address] [place], [place] [address]Dr. Garima Pulliam Chloride [Moles/Vol] 103 mmol/L Normal 98-107 [facility] Comment on above: Performed By: #### C MP ####[facility] [address] [place], [place] [address]Dr. Garima Pulliam CO2 [Moles/Vol] 28.5 mmol/L Normal 21.0-32.0 [facility] Comment on above: Performed By: #### C MP ####[facility] [address] [place], [place] [address]Dr. Garima Pulliam Creatinine [Mass/Vol] 0.74 mg/dL Normal 0.70-1.30 [facility] Comment on above: Performed By: #### C MP ####[facility] Ygknuwimid9242 [place] [phone]. Garima Pulliam EGFR-AF [place]OREAN >60 Normal >=60 [facility] Comment on above: Performed By: #### C MP ####[facility] Ywsskeizxy3865 [place] [phone]. Garima Pulliam EGFR-NON AF [place]ORE[place] >60 Normal >=60 [facility] Comment on above: Performed By: #### C MP ####[facility] V[address]rzvqmokm[address] [place] [address]Dr. Garima Pulliam Globulin (S) [Mass/Vol] 3.1 g/dL Normal [facility] Comment on above: Performed By: #### C MP ####[facility] Pskeqqifow[address] [place] [address]Dr. Garima Pulliam Glucose [Mass/Vol] 93 mg/dL Normal 74-106 [facility] Comment on above: Performed By: #### C MP ####[facility] Tmgigorrux4848 [place] [address]Dr. Garima Pulliam Potassium [Moles/Vol] 3.7 mmol/L Normal 3.5-5.1 [facility] Comment on above: Performed By: #### C MP ####[facility] Qrdawmqzjm4257 [place] [address]Dr. Garima Pulliam Protein [Mass/Vol] 6.9 g/dL Normal 6.4-8.2 [facility] Comment on above: Performed By: #### C MP ####[facility] Njuasfsbkx9[address] [place] [address]Dr. Garima Pulliam Sodium [Moles/Vol] 140 mmol/L Normal 136-145 [facility] Comment on above: Performed By: #### C MP ####[facility] Gvtddotcra3822 [place] [address]Dr. Garima Pulliam Urea nitrogen [Mass/Vol] 8.0 mg/dL Normal 7.0-18.0 [facility] Comment on above: Performed By: #### C MP ####[facility] Bsmciaokzu1876 [place] [address]Dr. Garima Pulliam Urea nitrogen/Creatinine [Mass ratio] 10.8 mg/mg Normal [facility] Comment on above: Performed By: #### C MP ####[facility] [address]feknk[address]148 [place] [address]Dr. Garima Pulliam AMMONIAon 03-30-2023 Ammonia (P) [Moles/Vol] 11 umol/L Normal 11-32 [facility] Comment on above: Performed By: #### A MM ####[facility] Ltgsopuzut[address] [place], [place] [address]Dr. Chapisrenu uPlliam CARDIAC NASH ADMITon 023 CK [Catalytic activity/Vol] 232 U/L Normal 39-308 [facility] Comment on above: Performed By: #### C DAVID, CMADM ####[facility] [address]qdzlkmk[address] [place], [place] [address]Dr. Chapisrenu Pulliam CK.MB [Mass/Vol] 4.83 ng/mL Critically high <=3.60 [facility] Comment on above: Performed By: #### C DAVID, CMADM ####[facility] Op[address]fonbdl[address] [place], [place] [address]Dr. Garima Pulliam HSTROP 10.5 pg/mL Normal 4.0-76.1 [facility] Comment on above: Result Comment: CUT- OFF POINTS HAVE BEEN ESTABLISHED BASED ON THE FOURTH UNIVERSAL DEFINITIONS OF MYOCARDIALINFARCTION. THE UPPER REFERENCE LIMIT (URL) OF TROPONIN, DEFINED THE 99TH PERCENTILE OFcTnI DISTRIBUTION IN A REFERENCE POPULATION, HAS BEEN CONFIRMED THE DECISION THRESHOLDFOR NE DIAGNOSIS. Performed By: #### C DAVID, CMADM ####[facility] [address]xle[address]fwfc[address] [place] [address]Dr. Chapisrenu Pulliam DORIS 79 ng/mL Normal 16-96 [facility] Comment on above: Performed By: #### C DAVID, CMADM ####[facility] O[address]cf[address]rvo[address] [place], [place] [address]Dr. Chapisrenu Pulliam CBC AUTO DIFFon 03-30-2023 BASO # 0.0 103/ul Normal 0.0-0.1 [facility] Comment on above: Performed By: #### C BC ####[facility] Rtwshrchsf4520 [place] [phone]. Garima Pulliam Basophils/100 WBC (Bld) 0.1 % Critically low 0.2-2.0 [facility] Comment on above: Performed By: #### C BC ####[facility] Mi[address]ioep[address] [place], [place] [address]Dr. Garima Pulliam EO # 0.3 103/ul Normal 0.0-0.7 [facility] Comment on above: Performed By: #### C BC ####[facility] Ozwdrblhsr[address] [place], [place] [address]Dr. Garima Pulliam Eosinophils/100 WBC (Bld) 3.3 % Normal 0.9-7.0 [facility] Comment on above: Performed By: #### C BC ####[facility] Fhmoefecva[address] [place], [place] [address]Dr. Garima Pulliam Erythrocyte distribution width (RBC) [Ratio] 13.5 % Normal 11.0-15.0 [facility] Comment on above: Performed By: #### C BC ####[facility] [address]jlmtzxzwh[address] [place], [place] [address]Dr. Garima Pulliam Hematocrit (Bld) [Volume fraction] 42.9 % Normal 42.0-54.0 [facility] Comment on above: Performed By: #### C BC ####[facility] Argnazoptz[address] [place], [place] [address]Dr. Garima Pulliam Hemoglobin (Bld) [Mass/Vol] 13.9 g/dL Critically low 14.0-18.0 [facility] Comment on above: Performed By: #### C BC ####[facility] X[address]unx[address] [place], [place] [address]Dr. Garima Pulliam IG # 0.01 10e3/ul Normal 0.00-0.03 [facility] Comment on above: Performed By: #### C BC ####[facility] V[address] [place], [place] [address]Dr. Garima Pulliam IG % 0.1 % Normal 0.0-0.5 [facility] Comment on above: Performed By: #### C BC ####[facility] Dj[address]uzour2614 [place] [phone]. Garima Pulliam LYMPH # 1.7 103/ul Normal 1.2-3.8 [facility] Comment on above: Performed By: #### C BC ####[facility] Jdtkldkits9507 [place] [phone]. Garima Pulliam Lymphocytes/100 WBC (Bld) 22.8 % Normal 20.5-60.0 [facility] Comment on above: Performed By: #### C BC ####[facility] Kxgseuhzgy9[address] [place] [phone]. Garima Pulliam MANUAL DIFF REQ NO Normal [facility] Comment on above: Performed By: #### C BC ####[facility] Fjjkuidypg5675 [place] [phone]. Garima Pulliam MCH (RBC) [Entitic mass] 30.5 pg Normal 25.9-34.0 [facility] Comment on above: Performed By: #### C BC ####[facility] Ltzaghozoo6071 [place] [phone]. Garima Pulliam MCHC (RBC) [Mass/Vol] 32.4 g/dL Normal 29.9-35.2 [facility] Comment on above: Performed By: #### C BC ####[facility] Felpdlupct0752 [place] [phone]. Garima Pulliam MCV (RBC) [Entitic vol] 94.1 fL Critically high 80.0-94.0 [facility] Comment on above: Performed By: #### C BC ####[facility] Qvrzoxcrtj5112 [place] [phone]. Garima Pulliam MONO # 0.7 103/ul Normal 0.3-0.8 [facility] Comment on above: Performed By: #### C BC ####[facility] Biddrlhixq6136 [place] [phone]. Garima Pulliam Monocytes/100 WBC (Bld) 8.6 % Normal 1.7-12.0 [facility] Comment on above: Performed By: #### C BC ####[facility] Xlsxqprqxv0843 [place] [phone]. Garima Pulliam NEUT # 4.9 103/ul Normal 1.4-6.5 [facility] Comment on above: Performed By: #### C BC ####[facility] Uuftujnfgn4572 [place] [phone]. Garima Pulliam Neutrophils/100 WBC (Bld) 65.1 % Normal 43.0-75.0 [facility] Comment on above: Performed By: #### C BC ####[facility] Saolkxcnre1583 [place] [phone]. Garima Pulliam Platelet mean volume (Bld) [Entitic vol] 8.5 fL Critically low 9.5-13.5 [facility] Comment on above: Performed By: #### C BC ####[facility] Whtxkxmjea3380 [place] [phone]. Garima Pulliam PLT 219 103/ul Normal 150-450 [facility] Comment on above: Performed By: #### C BC ####[facility] Uftvtyphpj4688 [place] [phone]. Garima Pulliam RBC 4.56 106/ul Critically low 4.70-6.10 [facility] Comment on above: Performed By: #### C BC ####[facility] Blfnaljgtp7957 [place] [phone]. Garima Pulliam WBC 7.6 103/ul Normal 4.0-11.0 [facility] Comment on above: Performed By: #### C BC ####[facility] Scgmctmspq2002 [place] [phone]. Garima Pulliam LACTATE/LACTIC ACIDon 2022 Lactate [Moles/Vol] 1.2 mmol/L Normal 0.4-2.0 [facility] Comment on above: Performed By: #### L ACT ####[facility] Liulzxralx2553 [place] [phone]. Garima Pulliam MAGNESIUMon 03-30-2023 Magnesium [Mass/Vol] 1.8 mg/dL Normal 1.8-2.4 [facility] Comment on above: Performed By: #### M G ####[facility] Anxxtswvsj6628 [place] [address]Dr. Garima Pulliam PROF 14(COMP METB)on 023 Albumin [Mass/Vol] 3.5 g/dL Normal 3.4-5.0 [facility] Comment on above: Performed By: #### C DAVID, NANCY ####[facility] Xqjboquhjh0525 [place] [address]Dr. Garima Pulliam Albumin/Globulin [Mass ratio] 1.2 {ratio} Normal [facility] Comment on above: Performed By: #### C NANCY HERNANDEZ ####[facility] Bhcdddsrcj1465 [place] [address]Dr. Garima Pulliam ALP [Catalytic activity/Vol] 85 U/L Normal 46-116 [facility] Comment on above: Performed By: #### Ethan HERNANDEZ, NANCY ####[facility] Ajbrqwtmep8554 [place] [address]Dr. Garima Pulliam ALT [Catalytic activity/Vol] 29 U/L Normal 16-63 [facility] Comment on above: Performed By: #### NANCY Long MP ####[facility] Tgrclnpizn9498 [place] [address]Dr. Garima Pulliam Anion gap [Moles/Vol] 8.0 mmol/L Normal [facility] Comment on above: Performed By: #### C DAVID, NANCY ####[facility] Mqgldjwktc4460 [place] [address]Dr. Garima Pulliam AST [Catalytic activity/Vol] 18 U/L Normal 15-37 [facility] Comment on above: Performed By: #### C DAVID, NANCY ####[facility] Arvvbwhjcc2778 [place] [address]Dr. Garima Pulliam Bilirubin [Mass/Vol] 0.4 mg/dL Normal 0.2-1.0 [facility] Comment on above: Performed By: #### NANCY Long MP ####[facility] Ybqxdljqny6603 [place] [address]Dr. Garima Pulliam Calcium [Mass/Vol] 8.8 mg/dL Normal 8.5-10.1 [facility] Comment on above: Performed By: #### C DAVID, NANCY ####[facility] Xazysyoiat4691 [place] [address]Dr. Garima Pulliam Chloride [Moles/Vol] 108 mmol/L Critically high 98-107 [facility] Comment on above: Performed By: #### C DAVID, NANCY ####[facility] Bsqrlylzjj3640 [place] [address]Dr. Garima Pulliam CO2 [Moles/Vol] 29.6 mmol/L Normal 21.0-32.0 [facility] Comment on above: Performed By: #### C DAVID, NANCY ####[facility] Rcfbaueygm9966 [place] [address]Dr. Garima Pulliam Creatinine [Mass/Vol] 0.77 mg/dL Normal 0.70-1.30 [facility] Comment on above: Performed By: #### C DAVID, NANCY ####[facility] Ojkssdwmki1764 [place] [address]Dr. Garima Pulliam EGFR-AF [place] >60 Normal >=60 [facility] Comment on above: Performed By: #### C DAVID, NANCY ####[facility] Mzbxibvhpm3579 [place] [address]Dr. Garima Pulliam EGFR-NON AF [place] >60 Normal >=60 [facility] Comment on above: Performed By: #### C DAVID, NANCY ####[facility] Adifhsodei2395 [place] [phone]. Garima Pulliam Globulin (S) [Mass/Vol] 2.8 g/dL Normal [facility] Comment on above: Performed By: #### C DAVID, NANCY ####[facility] Qnthglhsvd8042 [place] [address]Dr. Garima Pulliam Glucose [Mass/Vol] 207 mg/dL Critically high 74-106 [facility] Comment on above: Performed By: #### C DAVID, NANCY ####[facility] Odmydigsmk2588 [place] [address]Dr. Garima Pulliam Potassium [Moles/Vol] 4.6 mmol/L Normal 3.5-5.1 [facility] Comment on above: Performed By: #### C DAVID, CMADM ####[facility] Xmbjikujxu9918 [place] [address]Dr. Garima Pulliam Protein [Mass/Vol] 6.3 g/dL Critically low 6.4-8.2 [facility] Comment on above: Performed By: #### C DAVID, CMADM ####[facility] Fosqaeuhau4613 [place] [address]Dr. Garima Pulliam Sodium [Moles/Vol] 141 mmol/L Normal 136-145 [facility] Comment on above: Performed By: #### C DAVID, CMADM ####[facility] Pxvfjvavzp0585 [place] [address]Dr. Chapisrenu Pulliam Urea nitrogen [Mass/Vol] 9.0 mg/dL Normal 7.0-18.0 [facility] Comment on above: Performed By: #### C DAVID, CMADM ####[facility] Dypijmqauv8841 [place] [address]Dr. Garima Pulliam Urea nitrogen/Creatinine [Mass ratio] 11.7 mg/mg Normal [facility] Comment on above: Performed By: #### C DAVID, CMADM ####[facility] Tqmpnjlsot3163 [place] [address]Dr. Chapisrenu Pulliam XR CHEST 1 Von 03-30-2023 XR CHEST 1 V Normal [facility] BNPon 03-27-2023 Natriuretic peptide B (Bld) [Mass/Vol] 251.0 pg/mL Normal <=900.0 [facility] Comment on above: Performed By: #### C MP, BNP, LIPID ####[facility] Owztomxonm[address] [place], [place] [address]Dr. Garima Heraclio GLYCOHEMOGLOBIN A1Con 2022 ADA RECOMMENDATION SEE BELOW Normal [facility] Comment on above: Result Comment: ADA RECOMMENDED LIMIT 4.0 - 6.0 ADA THERAPEUTIC TARGET < 7.0 ACTION SUGGESTED > 7.0 Performed By: #### A 1C ####[facility] Wehxzobgqc0516 [place] [address]Dr. Garima Pulliam Glucose [Mass/Vol] 180 mg/dL Normal [facility] Comment on above: Performed By: #### A 1C ####[facility] Bcrjcekfij9304 [place] [address]Dr. Garima Pulliam HbA1c (Bld) [Mass fraction] 7.9 % Critically high 4.5-6.2 [facility] Comment on above: Performed By: #### A 1C ####[facility] [address]bfpapwhsc[address] [place], [place] [address]Dr. Garima Pulliam HEMOGRAM AND PLATELon 2022 Hematocrit (Bld) [Volume fraction] 45.7 % Normal 42.0-54.0 [facility] Comment on above: Performed By: #### H H ####[facility] Umnwqjoqkc[address] [place], [place] [address]Dr. Garima Pulliam Hemoglobin (Bld) [Mass/Vol] 15.1 g/dL Normal 14.0-18.0 [facility] Comment on above: Performed By: #### H H ####[facility] Daromfpsvn[address] [place], [place] [address]Dr. Garima Pulliam MCH (RBC) [Entitic mass] 30.0 pg Normal 25.9-34.0 [facility] Comment on above: Performed By: #### H H ####[facility] Udarhpzwbr[address] [place], [place] [address]Dr. Garima Pulliam MCHC (RBC) [Mass/Vol] 33.0 g/dL Normal 29.9-35.2 [facility] Comment on above: Performed By: #### H H ####[facility] [address]rdqitaexb[address] [place], [place] [address]Dr. Garima Pulliam MCV (RBC) [Entitic vol] 90.7 fL Normal 80.0-94.0 [facility] Comment on above: Performed By: #### H H ####[facility] [address]hdjqlgpn[address] [place], [place] [address]Dr. Garima Pulliam PLT 222 103/ul Normal 150-450 [facility] Comment on above: Performed By: #### H H ####[facility] Xxgffpoyhf9444 [place] [phone]. Garima Pulliam RBC 5.04 106/ul Normal 4.70-6.10 [facility] Comment on above: Performed By: #### H H ####[facility] Czddlawxaq3027 [place] [phone]. Garima Pulliam WBC 8.7 103/ul Normal 4.0-11.0 [facility] Comment on above: Performed By: #### H H ####[facility] Zxzwghwydq1288 [place] [address]Dr. Garima Pulliam LIPID PROFILEon 03-27-2023 CHOL-HDL RATIO NORM SEE BELOW Normal [facility] Comment on above: Result Comment: 3.3 - 4.4 LOW RISK 4.4 - 7.1 AVERAGE RISK 7.1 - 11.0 MODERATE RISK >11.0 HIGH RISK Performed By: #### C MP, BNP, LIPID ####[facility] Uwqktnlgoj7892 [place] [phone]. Garima Pulliam Cholesterol [Mass/Vol] 113 mg/dL Normal <=200 [facility] Comment on above: Performed By: #### C MP, BNP, LIPID ####[facility] Wflstpuxns2234 [place] [phone]. Garima Pulliam Cholesterol in HDL [Mass/Vol] 51 mg/dL Normal 40-60 [facility] Comment on above: Performed By: #### C MP, BNP, LIPID ####[facility] Wyeyvcakwe0215 [place] [phone]. Garima Pulliam Cholesterol in LDL [Mass/Vol] 49.8 mg/dL Normal [facility] Comment on above: Performed By: #### C MP, BNP, LIPID ####[facility] Cslecnpexk1727 [place] [phone]. Garima Pulliam Cholesterol.total/Cho lesterol in HDL [Mass ratio] 2.2 {ratio} Normal [facility] Comment on above: Performed By: #### C MP, BNP, LIPID ####[facility] Hlrhtandro4081 [place] [address]Dr. Garima Pulliam HDL NORMAL > or = 60 mg/dl - LOW CARDIOVASCULAR RISK <40 mg/dl - HIGH CARDIOVASCULAR RISK Normal [facility] Comment on above: Performed By: #### C MP, BNP, LIPID ####[facility] Pnhygjnuox0018 [place] [address]Dr. Garima Pulliam LDL CALC NORMAL SEE BELOW Normal [facility] Comment on above: Result Comment: <100 mg/dl OPTIMAL 100 - 129 mg/dl NEAR OR ABOVE OPTIMAL 130 - 159 mg/dl BORDERLINE HIGH 160 - 189 mg/dl HIGH >190 mg/dl VERY HIGH Performed By: #### C MP, BNP, LIPID ####[facility] Scegvhnasa6477 [place] [address]Dr. Garima Pulliam Triglyceride [Mass/Vol] 61 mg/dL Normal <=150 [facility] Comment on above: Performed By: #### C MP, BNP, LIPID ####[facility] Oggcfhvavm2430 [place] [address]Dr. Garima Pulliam VLDL CALC 12.2 mg/dL Normal [facility] Comment on above: Performed By: #### C MP, BNP, LIPID ####[facility] Hiunchihtx1516 [place] [address]Dr. Garima Pulliam PROF 14(COMP METB)on 023 Albumin [Mass/Vol] 3.5 g/dL Normal 3.4-5.0 [facility] Comment on above: Performed By: #### C MP, BNP, LIPID ####[facility] Jakyrdhhzb3742 [place] [address]Dr. Garima Pulliam Albumin/Globulin [Mass ratio] 1.2 {ratio} Normal [facility] Comment on above: Performed By: #### C MP, BNP, LIPID ####[place] Qgkzkcmscv[address] [place] [address]Dr. Garima Pulliam ALP [Catalytic activity/Vol] 82 U/L Normal 46-116 [facility] Comment on above: Performed By: #### C MP, BNP, LIPID ####[place] Ze[address]fikgww[address] [place] [address]Dr. Garima Pulliam ALT [Catalytic activity/Vol] 33 U/L Normal 16-63 [facility] Comment on above: Performed By: #### C MP, BNP, LIPID ####[place] Lhqrjrwihs[address] [place] [address]Dr. Garima Pulliam Anion gap [Moles/Vol] 9.9 mmol/L Normal [facility] Comment on above: Performed By: #### C MP, BNP, LIPID ####[place] Jsdkgcexvj6936 [place] [address]Dr. Garima Pulliam AST [Catalytic activity/Vol] 24 U/L Normal 15-37 [facility] Comment on above: Performed By: #### C MP, BNP, LIPID ####[place] Dhduflihyg4[address] [place] [address]Dr. Garima Pulliam Bilirubin [Mass/Vol] 0.6 mg/dL Normal 0.2-1.0 [facility] Comment on above: Performed By: #### C MP, BNP, LIPID ####[place] Yxkaifoqbt7409 [place] [address]Dr. Garima Pulliam Calcium [Mass/Vol] 9.2 mg/dL Normal 8.5-10.1 [facility] Comment on above: Performed By: #### C MP, BNP, LIPID ####[place] Zzfgoyfrix7[address] [place] [address]Dr. aGrima Pulliam Chloride [Moles/Vol] 106 mmol/L Normal 98-107 [facility] Comment on above: Performed By: #### C MP, BNP, LIPID ####[place] Fropyhpeov19[address] [place] [address]Dr. Garima Pulliam CO2 [Moles/Vol] 32.3 mmol/L Critically high 21.0-32.0 [facility] Comment on above: Performed By: #### C MP, BNP, LIPID ####[place] Apxqldsfms52[address] [place] [address]Dr. Garima Pulliam Creatinine [Mass/Vol] 0.70 mg/dL Normal 0.70-1.30 [facility] Comment on above: Performed By: #### C MP, BNP, LIPID ####[place] Baewizzlgb5[address] [place] [address]Dr. Chapisrenu Heraclio EGFR-AF [place] >60 Normal >=60 [facility] Comment on above: Performed By: #### C MP, BNP, LIPID ####[place] Nkguznsiqm82[address] [place] [address]Dr. Garima Pulliam EGFR-NON AF [place] >60 Normal >=60 [facility] Comment on above: Performed By: #### C MP, BNP, LIPID ####[place] Byyzppyhql9986 [place] [address]Dr. Garima Pulliam Globulin (S) [Mass/Vol] 2.9 g/dL Normal [facility] Comment on above: Performed By: #### C MP, BNP, LIPID ####[place] Wfwkhcptju6865 [place] [address]Dr. Garima Pulliam Glucose [Mass/Vol] 111 mg/dL Critically high 74-106 [facility] Comment on above: Performed By: #### C MP, BNP, LIPID ####[place] [address]jrt[address] [place], [place] [address]Dr. Garima Pulliam Potassium [Moles/Vol] 4.2 mmol/L Normal 3.5-5.1 [facility] Comment on above: Performed By: #### C MP, BNP, LIPID ####[place] Iaklkwxudn[address] [place], [place] [address]Dr. Garima Pulliam Protein [Mass/Vol] 6.4 g/dL Normal 6.4-8.2 [facility] Comment on above: Performed By: #### C MP, BNP, LIPID ####[place] Xgciwpzlcb[address] [place], [place] [address]Dr. Garima Pulliam Sodium [Moles/Vol] 144 mmol/L Normal 136-145 [facility] Comment on above: Performed By: #### C MP, BNP, LIPID ####[place] Wuynnmvdfu7[address] [place], [place] [address]Dr. Garima Pulliam Urea nitrogen [Mass/Vol] 7.0 mg/dL Normal 7.0-18.0 [facility] [place] Comment on above: Performed By: #### C MP, BNP, LIPID ####[place] Xcuqwwaekl[address] [place], [place] [address]Dr. Garima Pulliam Urea nitrogen/Creatinine [Mass ratio] 10.0 mg/mg Normal [facility] [place] Comment on above: Performed By: #### C MP, BNP, LIPID ####[place] Ixchndlhmq[address] [place], [place] [address]Dr. Garima Pulliam BNPon 03-22-2023 Natriuretic peptide B (Bld) [Mass/Vol] 103.0 pg/mL Normal <=900.0 [facility] [place] Comment on above: Performed By: #### B LAND LEASING EXAMINER, BMP ####[place] Kggjvlgsfk[address] [place], [place] [address]Dr. Garima Pulliam CBC AUTO DIFFon 03-22-2023 BASO # 0.0 103/ul Normal 0.0-0.1 [facility] [place] Comment on above: Performed By: #### C BC ####[place] W[address]akammpw[address] [place], [place] [address]Dr. Garima Pulliam Basophils/100 WBC (Bld) 0.3 % Normal 0.2-2.0 [facility] Comment on above: Performed By: #### C BC ####[place] K[address]hgankjg22[address] [place], [place] [address]Dr. Garima Pulliam EO # 0.2 103/ul Normal 0.0-0.7 [facility] [place] Comment on above: Performed By: #### C BC ####[place] Exfbtxclbt[address] [place], [place] [address]Dr. Garima Pulliam Eosinophils/100 WBC (Bld) 2.2 % Normal 0.9-7.0 [facility] [place] Comment on above: Performed By: #### C BC ####[place] Grflzzwzqd[address] [place], [place] [address]Dr. Garima Pulliam Erythrocyte distribution width (RBC) [Ratio] 13.2 % Normal 11.0-15.0 [facility] [place] Comment on above: Performed By: #### C BC ####[place] Nchzvzhsje18[address] [place] [address]Dr. Garima Pulliam Hematocrit (Bld) [Volume fraction] 43.4 % Normal 42.0-54.0 [facility] Comment on above: Performed By: #### C BC ####[place] Dcvvtpbfcx1383 [place] [address]Dr. Garima Heraclio Hemoglobin (Bld) [Mass/Vol] 14.3 g/dL Normal 14.0-18.0 [facility] Comment on above: Performed By: #### C BC ####[place] Yuwcowzwkp[address] [place], [place] [address]Dr. Garima Heraclio IG # 0.02 10e3/ul Normal 0.00-0.03 [facility] Comment on above: Performed By: #### C BC ####[place] Wegiacliwb80[address] [place], [place] [address]Dr. Garima Pulliam IG % 0.3 % Normal 0.0-0.5 [facility] Comment on above: Performed By: #### C BC ####[place] Ulzximspwg7[address] [place], [place] [address]Dr. Garima Heraclio LYMPH # 2.0 103/ul Normal 1.2-3.8 [facility] [place] Comment on above: Performed By: #### C BC ####[place] Ivvmunflyz[address] [place], [place] [address]Dr. Chapisrenu Pulliam Lymphocytes/100 WBC (Bld) 24.8 % Normal 20.5-60.0 [facility] Comment on above: Performed By: #### C BC ####[place] Lupdeadhnl[address] [place], [place] [address]Dr. Chapisrenu Pulliam MANUAL DIFF REQ NO Normal [facility] Comment on above: Performed By: #### C BC ####[place] Iiooxbcxrq43[address] [place], [place] [address]Dr. Garima Pulliam MCH (RBC) [Entitic mass] 30.0 pg Normal 25.9-34.0 [facility] Comment on above: Performed By: #### C BC ####[place] Bxkdmjgsvp8155 [place] [id number]. Garima Heraclio MCHC (RBC) [Mass/Vol] 32.9 g/dL Normal 29.9-35.2 [facility] [place] Comment on above: Performed By: #### C BC ####[place] Xhqbtdufgq3246 [place] [id number]. Garima Pulliam MCV (RBC) [Entitic vol] 91.0 fL Normal 80.0-94.0 [facility] [place] Comment on above: Performed By: #### C BC ####[place] Vdxcqnjbnb[address] [place], [place] [address]Dr. Garima Pulliam MONO # 0.8 103/ul Normal 0.3-0.8 [facility] [place] Comment on above: Performed By: #### C BC ####[place] Txmntehrgo7[address] [place], [place] [address]Dr. Garima Pulliam Monocytes/100 WBC (Bld) 9.7 % Normal 1.7-12.0 [facility] [place] Comment on above: Performed By: #### C BC ####[place] Ltljalmczm[address] [place], [place] [address]Dr. Garima Pulliam NEUT # 4.9 103/ul Normal 1.4-6.5 [facility] [place] Comment on above: Performed By: #### C BC ####[place] Sefheuetqq[address] [place], [place] [address]Dr. Garima Pulliam Neutrophils/100 WBC (Bld) 62.7 % Normal 43.0-75.0 [facility] [place] Comment on above: Performed By: #### C BC ####[place] Agvosqjjud[address] [place], [place] [address]Dr. Garima Pulliam Platelet mean volume (Bld) [Entitic vol] 8.8 fL Critically low 9.5-13.5 [facility] [place] Comment on above: Performed By: #### C BC ####[place] Zivjapbjia[address] [place], [place] [address]Dr. Garima Pulliam PLT 198 103/ul Normal 150-450 [facility] Comment on above: Performed By: #### C BC ####[place] Hlgozgvajl2834 [place] [id number]. Chapisrenu Pulliam RBC 4.77 106/ul Normal 4.70-6.10 [facility] [place] Comment on above: Performed By: #### C BC ####[place] Ouezhfzsou0568 [place] [id number]. Garima Pulliam WBC 7.9 103/ul Normal 4.0-11.0 [facility] [place] Comment on above: Performed By: #### C BC ####[place] Qbsiwvedbk0862 [place] [address]Dr. Garima Pulliam D-DIMERon 03-22-2023 D-DIMER 0.85 mg/L FEU Critically high <=0.59 [facility] Comment on above: Performed By: #### D DIM ####[place] [address]qypirdrbf[address] [place], [place] [address]Dr. Garima Pulliam D-DIMER COMMENTS SEE BELOW Normal [facility] Comment on above: Result Comment: Incr [...] generalized hospitalization. Performed By: #### D DIM ####[place] Bkvhdmwtjk9934 [place] [address]Dr. Garima Pulliam PROF CHEM 8 (BAS METB)on Anion gap [Moles/Vol] 6.9 mmol/L Normal [facility] Comment on above: Performed By: #### B LAND LEASING EXAMINER, BMP ####[place] Ktesnmsolr040[address] [place] [address]Dr. Garima Pulliam Calcium [Mass/Vol] 8.9 mg/dL Normal 8.5-10.1 [facility] Comment on above: Performed By: #### B LAND LEASING EXAMINER, BMP ####[place] Ogrvdbukgm7396 [place] [phone]. Garima Pulliam Chloride [Moles/Vol] 101 mmol/L Normal 98-107 [facility] Comment on above: Performed By: #### B LAND LEASING EXAMINER, BMP ####[place] Lvhfqffvsq6360 [place] [phone]. Garima Pulliam CO2 [Moles/Vol] 30.7 mmol/L Normal 21.0-32.0 [facility] Comment on above: Performed By: #### B LAND LEASING EXAMINER, BMP ####[place] Qywtdnsgaa8639 [place] [phone]. Garima Pulliam Creatinine [Mass/Vol] 0.82 mg/dL Normal 0.70-1.30 [facility] Comment on above: Performed By: #### B LAND LEASING EXAMINER, BMP ####[place] Plnfdbbmdq4347 [place] [address]Dr. Garima Pulliam EGFR-AF [place] >60 Normal >=60 [facility] Comment on above: Performed By: #### B LAND LEASING EXAMINER, BMP ####[place] Zvheijrzqm1254 [place] [address]Dr. Garima Pulliam EGFR-NON AF [place] >60 Normal >=60 [facility] Comment on above: Performed By: #### B LAND LEASING EXAMINER, BMP ####[place] Mfxtayaydc[address] [place], [place] [address]Dr. Garima Pulliam Glucose [Mass/Vol] 339 mg/dL Critically high 74-106 [facility] Comment on above: Performed By: #### B LAND LEASING EXAMINER, BMP ####[place] Mprrwyyaui3607 [place] [phone]. Garima Pulliam Potassium [Moles/Vol] 3.6 mmol/L Normal 3.5-5.1 [facility] Comment on above: Performed By: #### B LAND LEASING EXAMINER, BMP ####[place] Vtchkadhxm8325 [place] [address]Dr. Garima Pulliam Sodium [Moles/Vol] 135 mmol/L Critically low 136-[address] [facility] Comment on above: Performed By: #### B LAND LEASING EXAMINER, BMP ####[place] Faougtdlaz6952 [place] [phone]. Garima Pulliam Urea nitrogen [Mass/Vol] 11.0 mg/dL Normal 7.0-18.0 [facility] [place] Comment on above: Performed By: #### B LAND LEASING EXAMINER, BMP ####[place] Tikhemgdyq7224 [place] [phone]. Garima Pulliam Urea nitrogen/Creatinine [Mass ratio] 13.4 mg/mg Normal [facility] [place] Comment on above: Performed By: #### B LAND LEASING EXAMINER, BMP ####[place] Kq[address]wbkqmtt[address] [place], [place] [address]Dr. Garima Pulliam US VERONICA DOP LEG BILon 023 US VERONICA DOP LEG BENOIT Normal [facility] BNPon 03-18-2023 Natriuretic peptide B (Bld) [Mass/Vol] 226.0 pg/mL Normal <=900.0 [facility] [place] Comment on above: Performed By: #### B LAND LEASING EXAMINER, BMP ####[place] Aubiinahzw[address] [place], [place] [address]Dr. Garima Pulliam CBC AUTO DIFFon 03-18-2023 BASO # 0.0 103/ul Normal 0.0-0.1 [facility] [place] Comment on above: Performed By: #### C BC ####[place] Y[address]vmaealgg[address] [place], [place] [address]Dr. Garima Heraclio Basophils/100 WBC (Bld) 0.2 % Normal 0.2-2.0 [facility] [place] Comment on above: Performed By: #### C BC ####[place] Fqhzyjmjqc5[address] [place], [place] [address]Dr. Garima Pulliam EO # 0.3 103/ul Normal 0.0-0.7 [facility] [place] Comment on above: Performed By: #### C BC ####[place] Olxkhnmkyt[address] [place], [place] [address]Dr. Garima Heraclio Eosinophils/100 WBC (Bld) 2.5 % Normal 0.9-7.0 [facility] [place] Comment on above: Performed By: #### C BC ####[place] Yvmlprgoti[address] [place], [place] [address]Dr. Garima Pulilam Erythrocyte distribution width (RBC) [Ratio] 13.2 % Normal 11.0-15.0 [facility] [place] Comment on above: Performed By: #### C BC ####[place] Eykuomwxsy9898 [place] [address]Dr. Garima Pulliam Hematocrit (Bld) [Volume fraction] 45.8 % Normal 42.0-54.0 [facility] [place] Comment on above: Performed By: #### C BC ####[place] Meuiscquzh0866 [place] [address]Dr. Garima Pulliam Hemoglobin (Bld) [Mass/Vol] 15.3 g/dL Normal 14.0-18.0 [facility] Comment on above: Performed By: #### C BC ####[place] Vkuvmemzwd[address] [place], [place] [address]Dr. Garima Heraclio IG # 0.02 10e3/ul Normal 0.00-0.03 [facility] [place] Comment on above: Performed By: #### C BC ####[place] Qsbrjwshzy[address] [place], [place] [address]Dr. Garima Pulliam IG % 0.2 % Normal 0.0-0.5 [facility] [place] Comment on above: Performed By: #### C BC ####[place] Ilkhyrksta[address] [place], [place] [address]Dr. Garima Heraclio LYMPH # 1.8 103/ul Normal 1.2-3.8 [facility] [place] Comment on above: Performed By: #### C BC ####[place] Fkvuwjhyxv54[address] [place], [place] [address]Dr. Chapisrenu Pulliam Lymphocytes/100 WBC (Bld) 18.3 % Critically low 20.5-60.0 [facility] [place] Comment on above: Performed By: #### C BC ####[place] Omesbdsdfy[address] [place], [place] [address]Dr. Chapisrenu Pulliam MANUAL DIFF REQ NO Normal [facility] Comment on above: Performed By: #### C BC ####[place] Ylhfoiknmn[address] [place], [place] [address]Dr. Garima Pulliam MCH (RBC) [Entitic mass] 30.5 pg Normal 25.9-34.0 [facility] [place] Comment on above: Performed By: #### C BC ####[place] Zdsxfwbvgd3595 [place] [phone]. Garima Pulliam MCHC (RBC) [Mass/Vol] 33.4 g/dL Normal 29.9-35.2 [facility] [place] Comment on above: Performed By: #### C BC ####[place] Ltozcsxktx3402 [place] [phone]. Garima Pulliam MCV (RBC) [Entitic vol] 91.2 fL Normal 80.0-94.0 [facility] Comment on above: Performed By: #### C BC ####[place] Hdqurbdjkn4[address] [place], [place] [address]DrAdalberto Garima Heraclio MONO # 0.8 103/ul Normal 0.3-0.8 [facility] [place] Comment on above: Performed By: #### C BC ####[place] Avhislprxp75[address] [place], [place] [address]Dr. Garima Heraclio Monocytes/100 WBC (Bld) 7.6 % Normal 1.7-12.0 [facility] [place] Comment on above: Performed By: #### C BC ####[place] Ayvwmjrtud6[address] [place], [place] [address]Dr. Garima Pulliam NEUT # 7.0 103/ul Critically high 1.4-6.5 [facility] Comment on above: Performed By: #### C BC ####[place] Pvihgefepy[address] [place], [place] [address]DrAdalberto Garima Heraclio Neutrophils/100 WBC (Bld) 71.2 % Normal 43.0-75.0 [facility] [place] Comment on above: Performed By: #### C BC ####[place] Kzfjtrxqpc[address] [place], [place] [address]Dr. Garima Pulliam Platelet mean volume (Bld) [Entitic vol] 8.9 fL Critically low 9.5-13.5 [facility] [place] Comment on above: Performed By: #### C BC ####[place] Zfstqtmlre8087 [place] [phone]. Garima Pulliam PLT 217 103/ul Normal 150-450 [facility] Comment on above: Performed By: #### C BC ####[place] Ivvxauostj[address] [place], [place] [address]Dr. Garima Pulliam RBC 5.02 106/ul Normal 4.70-6.10 [facility] Comment on above: Performed By: #### C BC ####[place] Hqlzsjjolu[address] [place], [place] [address]Dr. Garima Pulliam WBC 9.8 103/ul Normal 4.0-11.0 [facility] Comment on above: Performed By: #### C BC ####[place] Mchxainiee[address] [place], [place] [address]Dr. Garima Heraclio CRPon 03-18-2023 CRP 0.1 mg/dL Normal <=1.0 [facility] Comment on above: Performed By: #### C RP ####[place] Mvhzmamsoc[address] [place], [place] [address]Dr. Garima Heraclio PROF CHEM 8 (BAS METB)on Anion gap [Moles/Vol] 10.4 mmol/L Normal [facility] Comment on above: Performed By: #### B LAND LEASING EXAMINER, BMP ####[place] Bnlkiqgull[address] [place], [place] [address]Dr. Garima Heraclio Calcium [Mass/Vol] 8.8 mg/dL Normal 8.5-10.1 [facility] Comment on above: Performed By: #### B LAND LEASING EXAMINER, BMP ####[place] Kyweqvalny60[address] [place] [address]Dr. Garima Pulliam Chloride [Moles/Vol] 97 mmol/L Critically low 98-107 [facility] Comment on above: Performed By: #### B LAND LEASING EXAMINER, BMP ####[place] Gikzzhymrq3602 [place] [address]Dr. Garima Pulliam CO2 [Moles/Vol] 31.2 mmol/L Normal 21.0-32.0 [facility] Comment on above: Performed By: #### B LAND LEASING EXAMINER, BMP ####[place] Xkkxxsznpn4977 [place] [phone]. Garima Pulliam Creatinine [Mass/Vol] 0.91 mg/dL Normal 0.70-1.30 [facility] Comment on above: Performed By: #### B LAND LEASING EXAMINER, BMP ####[place] Xcdkxnheub9754 [place] [phone]. Garima Pulliam EGFR-AF [place] >60 Normal >=60 [facility] Comment on above: Performed By: #### B LAND LEASING EXAMINER, BMP ####[place] Vyvjpziiii4735 [place] [phone]. Garima Pulliam EGFR-NON AF [place] >60 Normal >=60 [facility] Comment on above: Performed By: #### B LAND LEASING EXAMINER, BMP ####[place] Z[address]psuguep[address] [place], [place] [address]Dr. Garima Pulliam Glucose [Mass/Vol] 315 mg/dL Critically high 74-106 [facility] Comment on above: Performed By: #### B LAND LEASING EXAMINER, BMP ####[place] S[address]pvz[address] [place], [place] [address]Dr. Garima Pulliam Potassium [Moles/Vol] 3.6 mmol/L Normal 3.5-5.1 [facility] Comment on above: Performed By: #### B LAND LEASING EXAMINER, BMP ####[place] Ebjqaulhcd[address] [place], [place] [address]Dr. Garima Pulliam Sodium [Moles/Vol] 135 mmol/L Critically low 136-[address] [facility] Comment on above: Performed By: #### B LAND LEASING EXAMINER, BMP ####[place] Fleseeijwo[address] [place], [place] [address]Dr. Garima Pulliam Urea nitrogen [Mass/Vol] 7.0 mg/dL Normal 7.0-18.0 [facility] Comment on above: Performed By: #### B LAND LEASING EXAMINER, BMP ####[place] Eewxypknsu[address] [place], [place] [address]Dr. Garima Pulliam Urea nitrogen/Creatinine [Mass ratio] 7.7 mg/mg Normal [facility] Comment on above: Performed By: #### B LAND LEASING EXAMINER, BMP ####[place] Rmphyofdis[address] [place], [place] [address]Dr. Garima Pulliam SED RATE WESTERGRENon 2022 SED RATE 8 mm/hr Normal <=20 [facility] Comment on above: Performed By: #### S EDR ####[place] Npjsxfdmbj22[address] [place], [place] [address]Dr. Garima Pulliam BNPon 03-16-2023 Natriuretic peptide B (Bld) [Mass/Vol] 241.0 pg/mL Normal <=900.0 [facility] Comment on above: Performed By: #### B LAND LEASING EXAMINER, BMP, HSTROPN ####[place] Fzwjfpurcz[address] [place], [place] [address]Dr. Garima Heraclio CBC AUTO DIFFon 03-16-2023 BASO # 0.0 103/ul Normal 0.0-0.1 [facility] Comment on above: Performed By: #### C BC ####[place] V[address]ixgffrz[address] [place], [place] [address]Dr. Garima Heraclio Basophils/100 WBC (Bld) 0.2 % Normal 0.2-2.0 [facility] Comment on above: Performed By: #### C BC ####[place] Hjyzwfpire65[address] [place], [place] [address]Dr. Chapisrenu Heraclio EO # 0.2 103/ul Normal 0.0-0.7 [facility] Comment on above: Performed By: #### C BC ####[place] Fjuzfulqne[address] [place], [place] [address]Dr. Garima Heraclio Eosinophils/100 WBC (Bld) 2.7 % Normal 0.9-7.0 [facility] Comment on above: Performed By: #### C BC ####[place] Shfjtjeznb[address] [place], [place] [address]Dr. Garima Heraclio Erythrocyte distribution width (RBC) [Ratio] 13.1 % Normal 11.0-15.0 [facility] Comment on above: Performed By: #### C BC ####[place] Xiyewwzgdv54[address] [place], [place] [address]Dr. Garima Heraclio Hematocrit (Bld) [Volume fraction] 41.8 % Critically low 42.0-54.0 [facility] Comment on above: Performed By: #### C BC ####[place] Qgnewzphjf7083 [place] [address]DrAdalberto Garima Pulliam Hemoglobin (Bld) [Mass/Vol] 14.0 g/dL Normal 14.0-18.0 [facility] Comment on above: Performed By: #### C BC ####[place] Gvisihuxoo5216 [place] [address]DrAdalberto Pulliam IG # 0.03 10e3/ul Normal 0.00-0.03 [facility] Comment on above: Performed By: #### C BC ####[place] Zsevkzlbpm[address] [place], [place] [address]DrAdalberto Chapisrneu Pulliam IG % 0.3 % Normal 0.0-0.5 [facility] Comment on above: Performed By: #### C BC ####[place] Euqq[address]ydyr[address] [place], [place] [address]DrAdalberto Chapisrenu Pulliam LYMPH # 2.1 103/ul Normal 1.2-3.8 [facility] Comment on above: Performed By: #### C BC ####[place] Ssvtivatmc[address] [place], [place] [address]DrAdalberto Chapisrenu Pulliam Lymphocytes/100 WBC (Bld) 24.2 % Normal 20.5-60.0 [facility] Comment on above: Performed By: #### C BC ####[place] Aaxequfcnb[address] [place], [place] [address]DrAdalberto Pulliam MANUAL DIFF REQ NO Normal [facility] Comment on above: Performed By: #### C BC ####[place] Whnwmhvjdu20[address] [place], [place] [address]DrAdalberto Pulliam MCH (RBC) [Entitic mass] 30.2 pg Normal 25.9-34.0 [facility] Comment on above: Performed By: #### C BC ####[place] Qoiuffbkbq[address] [place], [place] [address]DrAdalberto Pulliam MCHC (RBC) [Mass/Vol] 33.5 g/dL Normal 29.9-35.2 [facility] Comment on above: Performed By: #### C BC ####[place] Llahesyxcs[address] [place], [place] [address]DrAdalberto Pulliam MCV (RBC) [Entitic vol] 90.1 fL Normal 80.0-94.0 [facility] Comment on above: Performed By: #### C BC ####[place] [address]azmcwvke[address] [place], [place] [address]DrAdalberto Pulliam MONO # 0.6 103/ul Normal 0.3-0.8 [facility] Comment on above: Performed By: #### C BC ####[place] Fluetjvfgx[address] [place], [place] [address]DrAdalberto Pulliam Monocytes/100 WBC (Bld) 7.4 % Normal 1.7-12.0 [facility] Comment on above: Performed By: #### C BC ####[place] [address]czlhmo[address] [place], [place] [address]DrAdalberto Pulliam NEUT # 5.6 103/ul Normal 1.4-6.5 [facility] Comment on above: Performed By: #### C BC ####[place] [address]fps[address] [place], [place] [address]DrAdalberto Pulliam Neutrophils/100 WBC (Bld) 65.2 % Normal 43.0-75.0 [facility] Comment on above: Performed By: #### C BC ####[place] K[address]rc[address]vdxo[address] [place], [place] [address]DrAdalberto Pulliam Platelet mean volume (Bld) [Entitic vol] 8.7 fL Critically low 9.5-13.5 [facility] Comment on above: Performed By: #### C BC ####[place] F[address]wrkc[address] [place], [place] [address]DrAdalberto Pulliam PLT 195 103/ul Normal 150-450 [facility] Comment on above: Performed By: #### C BC ####[place] Nzdasywgco[address] [place], [place] [address]DrAdalberto Pulliam RBC 4.64 106/ul Critically low 4.70-6.10 [facility] Comment on above: Performed By: #### C BC ####[place] Ynedgpnvqh[address] [place], [place] [address]Dr. Chapisrenu Pulliam WBC 8.6 103/ul Normal 4.0-11.0 [facility] Comment on above: Performed By: #### C BC ####[place] Domvmfenko[address] [place], [place] [address]Dr. Garima Pulliam PROF CHEM 8 (BAS METB)on Anion gap [Moles/Vol] 6.7 mmol/L Normal [facility] Comment on above: Performed By: #### B LAND LEASING EXAMINER, BMP, HSTROPN ####[place] [address] [place], [place] [address]Dr. Garima Pulliam Calcium [Mass/Vol] 8.8 mg/dL Normal 8.5-10.1 [facility] Comment on above: Performed By: #### B LAND LEASING EXAMINER, BMP, HSTROPN ####[place] Azfnrruntw[address] [place], [place] [address]Dr. Garima Pulliam Chloride [Moles/Vol] 106 mmol/L Normal 98-107 [facility] Comment on above: Performed By: #### B LAND LEASING EXAMINER, BMP, HSTROPN ####[place] P[address]uwhaqxj[address] [place], [place] [address]Dr. Garima Pulliam CO2 [Moles/Vol] 31.4 mmol/L Normal 21.0-32.0 [facility] Comment on above: Performed By: #### B LAND LEASING EXAMINER, BMP, HSTROPN ####[place] Guflypq[address]he[address] [place], [place] [address]Dr. Garima Pulliam Creatinine [Mass/Vol] 0.75 mg/dL Normal 0.70-1.30 [facility] Comment on above: Performed By: #### B LAND LEASING EXAMINER, BMP, HSTROPN ####[place] Hxlvlany[address] [place], [place] [address]Dr. Garima Pulliam EGFR-AF [place] >60 Normal >=60 [facility] Comment on above: Performed By: #### B LAND LEASING EXAMINER, BMP, HSTROPN ####[place] [address]mcwldo[address] [place] [address]Dr. Garima Pulliam EGFR-NON AF [place] >60 Normal >=60 [facility] Comment on above: Performed By: #### B LAND LEASING EXAMINER, BMP, HSTROPN ####[place] Veqbbjoita[address] [place] [address]Dr. Garima Pulliam Glucose [Mass/Vol] 161 mg/dL Critically high 74-106 T [facility] Comment on above: Performed By: #### B LAND LEASING EXAMINER, BMP, HSTROPN ####[place] E[address]hwwlfpx[address] [place] [address]Dr. Garima Pulliam Potassium [Moles/Vol] 4.1 mmol/L Normal 3.5-5.1 [facility] Comment on above: Performed By: #### B LAND LEASING EXAMINER, BMP, HSTROPN ####[place] Sbqlcccsxe8860 [place] [address]Dr. Garima Pulliam Sodium [Moles/Vol] 140 mmol/L Normal 136-145 [facility] Comment on above: Performed By: #### B LAND LEASING EXAMINER, BMP, HSTROPN ####[place] Erhstoovzi69[address] [place] [address]Dr. Garima Pulliam Urea nitrogen [Mass/Vol] 7.0 mg/dL Normal 7.0-18.0 [facility] Comment on above: Performed By: #### B LAND LEASING EXAMINER, BMP, HSTROPN ####[place] Kixknfelat[address] [place] [address]Dr. Garima Pulliam Urea nitrogen/Creatinine [Mass ratio] 9.3 mg/mg Normal [facility] Comment on above: Performed By: #### B LAND LEASING EXAMINER, BMP, HSTROPN ####[place] [address]ivphvjp[address] [place], [place] [address]Dr. Garima Pulliam TROPONIN, HIGH SENSITIVITYon 03-16-2023 HSTROP 9.7 pg/mL Normal 4.0-76.1 [facility] Comment on above: Result Comment: CUT- OFF POINTS HAVE BEEN ESTABLISHED BASED ON THE FOURTH UNIVERSAL DEFINITIONS OF MYOCARDIALINFARCTION. THE UPPER REFERENCE LIMIT (URL) OF TROPONIN, DEFINED THE 99TH PERCENTILE OFcTnI DISTRIBUTION IN A REFERENCE POPULATION, HAS BEEN CONFIRMED THE DECISION THRESHOLDFOR NE DIAGNOSIS. Performed By: #### B LAND LEASING EXAMINER, BMP, HSTROPN ####[place] Poaylijila[address] [place] [address]Dr. Garima Pulliam XR CHEST 1 Von 03-16-2023 XR CHEST 1 V Normal [facility] BNPon 03-06-2023 Natriuretic peptide B (Bld) [Mass/Vol] 111.0 pg/mL Normal <=900.0 [facility] Comment on above: Performed By: #### C MP, BNP, CK ####[place] Jlszzsfzma[address] [place], [place] [address]Dr. Garima Pulliam CBC AUTO DIFFon 03-06-2023 BASO # 0.0 103/ul Normal 0.0-0.1 [facility] Comment on above: Performed By: #### C BC ####[place] Andswylcbt[address] [place], [place] [address]Dr. Garima Heraclio Basophils/100 WBC (Bld) 0.2 % Normal 0.2-2.0 [facility] Comment on above: Performed By: #### C BC ####[place] Vsmrryxucp[address] [place], [place] [address]Dr. Garima Pulliam EO # 0.3 103/ul Normal 0.0-0.7 [facility] Comment on above: Performed By: #### C BC ####[place] Zfqtmvhcao[address] [place], [place] [address]Dr. Garima Heraclio Eosinophils/100 WBC (Bld) 3.5 % Normal 0.9-7.0 [facility] Comment on above: Performed By: #### C BC ####[place] Jrtjfgkbss[address] [place], [place] [address]Dr. Garima Pulliam Erythrocyte distribution width (RBC) [Ratio] 13.3 % Normal 11.0-15.0 [facility] Comment on above: Performed By: #### C BC ####[place] Rmaphkkmbi[address] [place], [place] [address]Dr. Garima Pulliam Hematocrit (Bld) [Volume fraction] 43.7 % Normal 42.0-54.0 [facility] Comment on above: Performed By: #### C BC ####[place] Lntfchapyq5925 [place] [address]Dr. Garima Pulliam Hemoglobin (Bld) [Mass/Vol] 14.7 g/dL Normal 14.0-18.0 [facility] Comment on above: Performed By: #### C BC ####[place] Ufqjombssd2623 [place] [address]Dr. Garima Pulliam IG # 0.03 10e3/ul Normal 0.00-0.03 [facility] Comment on above: Performed By: #### C BC ####[place] Ydvshisefi4194 [place] [address]Dr. Garima Pulliam IG % 0.4 % Normal 0.0-0.5 [facility] Comment on above: Performed By: #### C BC ####[place] Nddsvizygd[address] [place], [place] [address]Dr. Garima Pulliam LYMPH # 2.0 103/ul Normal 1.2-3.8 [facility] Comment on above: Performed By: #### C BC ####[place] [address]pcxjzc[address] [place], [place] [address]Dr. Garima Pulliam Lymphocytes/100 WBC (Bld) 23.7 % Normal 20.5-60.0 [facility] Comment on above: Performed By: #### C BC ####[place] Qbgvqyedff[address] [place], [place] [address]Dr. Garima Pulliam MANUAL DIFF REQ NO Normal [facility] Comment on above: Performed By: #### C BC ####[place] Sxywbdeqko2980 [place] [address]Dr. Garima Pulliam MCH (RBC) [Entitic mass] 30.1 pg Normal 25.9-34.0 [facility] Comment on above: Performed By: #### C BC ####[place] I[address]zciuimp[address] [place], [place] [address]Dr. Garima Pulliam MCHC (RBC) [Mass/Vol] 33.6 g/dL Normal 29.9-35.2 [facility] Comment on above: Performed By: #### C BC ####[place] Tkmjmszhdc2611 [place] [address]DrAdalberto Pulliam MCV (RBC) [Entitic vol] 89.4 fL Normal 80.0-94.0 [facility] Comment on above: Performed By: #### C BC ####[place] Cxxlrlmvzf[address] [place], [place] [address]DrAdalberto Pulliam MONO # 0.8 103/ul Normal 0.3-0.8 [facility] Comment on above: Performed By: #### C BC ####[place] Ql[address]uruygv[address] [place], [place] [address]DrAdalberto Pulliam Monocytes/100 WBC (Bld) 9.0 % Normal 1.7-12.0 [facility] Comment on above: Performed By: #### C BC ####[place] Ntzdasxlyi7[address] [place], [place] [address]Dr. Garima Pulliam NEUT # 5.4 103/ul Normal 1.4-6.5 [facility] Comment on above: Performed By: #### C BC ####[place] Zxvbdxtngz[address] [place], [place] [address]DrAdalberto Pulliam Neutrophils/100 WBC (Bld) 63.2 % Normal 43.0-75.0 [facility] Comment on above: Performed By: #### C BC ####[place] Imutoybbnk[address] [place], [place] [address]DrAdalberto Pulliam Platelet mean volume (Bld) [Entitic vol] 9.0 fL Critically low 9.5-13.5 [facility] Comment on above: Performed By: #### C BC ####[place] V[address]yltk[address] [place], [place] [address]DrAdalberto Pulliam PLT 218 103/ul Normal 150-450 [facility] Comment on above: Performed By: #### C BC ####[place] Z[address]bfrcylg[address] [place], [place] [address]DrAdalberto Pulliam RBC 4.89 106/ul Normal 4.70-6.10 [facility] Comment on above: Performed By: #### C BC ####[place] Ipsydirqur9399 [place] [address]Dr. Garima Pulliam WBC 8.5 103/ul Normal 4.0-11.0 [facility] Comment on above: Performed By: #### C BC ####[place] Sdenzogkmd7926 [place] [address]Dr. Garima Heraclio CPKon 03-06-2023 CK [Catalytic activity/Vol] 191 U/L Normal 39-308 [facility] Comment on above: Performed By: #### C MP, BNP, CK ####[place] [address]siwwr[address] [place], [place] [address]Dr. Garima Pulliam PROF 14(COMP METB)on 023 Albumin [Mass/Vol] 3.6 g/dL Normal 3.4-5.0 [facility] Comment on above: Performed By: #### C MP, BNP, CK ####[place] Lvzohoqcxf6[address] [place] [address]Dr. Garima Pulliam Albumin/Globulin [Mass ratio] 1.2 {ratio} Normal [facility] Comment on above: Performed By: #### C MP, BNP, CK ####[place] Wczxlmlflg3223 [place] [address]Dr. Garima Pulliam ALP [Catalytic activity/Vol] 91 U/L Normal 46-116 [facility] Comment on above: Performed By: #### C MP, BNP, CK ####[place] Nebizhlayc23[address] [place] [address]Dr. Garima Pulliam ALT [Catalytic activity/Vol] 33 U/L Normal 16-63 [facility] Comment on above: Performed By: #### C MP, BNP, CK ####[place] Pghtloyclg9048 [place] [address]Dr. Garima Pulliam Anion gap [Moles/Vol] 10.3 mmol/L Normal [facility] Comment on above: Performed By: #### C MP, BNP, CK ####[place] Njteexjrvp2457 [place] [address]Dr. Garima Pulliam AST [Catalytic activity/Vol] 17 U/L Normal 15-37 [facility] Comment on above: Performed By: #### C MP, BNP, CK ####[place] Hudtbqbomh72[address] [place] [address]Dr. Garima Pulliam Bilirubin [Mass/Vol] 0.4 mg/dL Normal 0.2-1.0 [facility] Comment on above: Performed By: #### C MP, BNP, CK ####[place] Hayntepgli5934 [place] [address]Dr. Garima Pulliam Calcium [Mass/Vol] 9.1 mg/dL Normal 8.5-10.1 [facility] Comment on above: Performed By: #### C MP, BNP, CK ####[place] [address]zhlwbvks[address] [place], [place] [address]Dr. Garima Pulliam Chloride [Moles/Vol] 102 mmol/L Normal 98-107 [facility] Comment on above: Performed By: #### C MP, BNP, CK ####[place] Nmrsjcocgw9453 [place] [address]Dr. Garima Pulliam CO2 [Moles/Vol] 29.7 mmol/L Normal 21.0-32.0 [facility] Comment on above: Performed By: #### C MP, BNP, CK ####[place] Dftpeldmvt5774 [place] [address]Dr. Garima Pullaim Creatinine [Mass/Vol] 0.79 mg/dL Normal 0.70-1.30 [facility] Comment on above: Performed By: #### C MP, BNP, CK ####[place] Tswobahblz87[address] [place] [address]Dr. Garima Pulliam EGFR-AF [place] >60 Normal >=60 [facility] Comment on above: Performed By: #### C MP, BNP, CK ####[place] Laapjflmyw4225 [place] [address]Dr. Garima Pulliam EGFR-NON AF [place] >60 Normal >=60 [facility] Comment on above: Performed By: #### C MP, BNP, CK ####[place] Tmhyqwrdes8229 [place] [address]Dr. Garima Pulliam Globulin (S) [Mass/Vol] 3.0 g/dL Normal [facility] Comment on above: Performed By: #### C MP, BNP, CK ####[place] Anhonxubys[address] [place] [address]Dr. Garima Pulliam Glucose [Mass/Vol] 202 mg/dL Critically high 74-106 T [facility] Comment on above: Performed By: #### C MP, BNP, CK ####[place] Pqyfftiwfp[address] [place], [place] [address]Dr. Garima Pulliam Potassium [Moles/Vol] 4.0 mmol/L Normal 3.5-5.1 [facility] Comment on above: Performed By: #### C MP, BNP, CK ####[place] [address]xnwmhn[address] [place], [place] [address]Dr. Garima Pulliam Protein [Mass/Vol] 6.6 g/dL Normal 6.4-8.2 [facility] Comment on above: Performed By: #### C MP, BNP, CK ####[place] Paxkrrulyk[address] [place], [place] [address]Dr. Garima Pulliam Sodium [Moles/Vol] 138 mmol/L Normal 136-145 [facility] Comment on above: Performed By: #### C MP, BNP, CK ####[place] Aswfzfhgox[address] [place], [place] [address]Dr. Garima Pulliam Urea nitrogen [Mass/Vol] 10.0 mg/dL Normal 7.0-18.0 [facility] Comment on above: Performed By: #### C MP, BNP, CK ####[place] [address]wmazmpmp[address] [place], [place] [address]Dr. Garima Pulliam Urea nitrogen/Creatinine [Mass ratio] 12.7 mg/mg Normal [facility] Comment on above: Performed By: #### C MP, BNP, CK ####[place] Qyguvxtbqg[address] [place], [place] [address]DrAdalberto Pulliam US VERONICA DOP LEG BILon 023 US VERONICA DOP LEG BENOIT Normal [facility] CBC AUTO DIFFon 01-13-2023 BASO # 0.0 103/ul Normal 0.0-0.1 [facility] Comment on above: Performed By: #### C BC ####[place] Cutahxwscm6025 [place] [address]DrAdalberto Pulliam Basophils/100 WBC (Bld) 0.0 % Critically low 0.2-2.0 [facility] Comment on above: Performed By: #### C BC ####[place] Zmymjujnyd0393 [place] [address]DrAdalberto Pulliam EO # 0.0 103/ul Normal 0.0-0.7 [facility] Comment on above: Performed By: #### C BC ####[place] Qgryhqonrj8947 [place] [address]DrAdalberto Pulliam Eosinophils/100 WBC (Bld) 0.0 % Critically low 0.9-7.0 [facility] Comment on above: Performed By: #### C BC ####[place] Zzghyzkmez4693 [place] [address]DrAdalberto Pulliam Erythrocyte distribution width (RBC) [Ratio] 13.2 % Normal 11.0-15.0 [facility] Comment on above: Performed By: #### C BC ####[place] Demyzugwoj3369 [place] [address]DrAdalberto Pulliam Hematocrit (Bld) [Volume fraction] 46.7 % Normal 42.0-54.0 [facility] Comment on above: Performed By: #### C BC ####[place] Hljfxolslt0445 [place] [address]DrAdalberto Pulliam Hemoglobin (Bld) [Mass/Vol] 15.6 g/dL Normal 14.0-18.0 [facility] Comment on above: Performed By: #### C BC ####[place] Xerkbtrfau9404 [place] [address]DrAdalberto Pulliam IG # 0.01 10e3/ul Normal 0.00-0.03 [facility] Comment on above: Performed By: #### C BC ####[place] Pnygiwtruw4608 [place] [address]DrAdalberto Chapisrenu Pullima IG % 0.2 % Normal 0.0-0.5 [facility] Comment on above: Performed By: #### C BC ####[place] Hnypmvyzoa2020 [place] [id number] Chapisrenu Pulliam LYMPH # 0.8 103/ul Critically low 1.2-3.8 [facility] Comment on above: Performed By: #### C BC ####[place] Rebeqejsjm3692 [place] [address]DrAdalberto Pulliam Lymphocytes/100 WBC (Bld) 12.7 % Critically low 20.5-60.0 [facility] Comment on above: Performed By: #### C BC ####[place] Iynqefzxqo6314 [place] [address]DrAdalebrto Pulliam MANUAL DIFF REQ NO Normal [facility] Comment on above: Performed By: #### C BC ####[place] Dntgvllvbi0747 [place] [id number] Garima Heraclio MCH (RBC) [Entitic mass] 30.2 pg Normal 25.9-34.0 [facility] Comment on above: Performed By: #### C BC ####[place] Vxeckfpvxd1647 [place] [address]DrAdalberto Chapisrenu Pulliam MCHC (RBC) [Mass/Vol] 33.4 g/dL Normal 29.9-35.2 [facility] Comment on above: Performed By: #### C BC ####[place] Zvolydqevr8347 [place] [id number] Pulliam MCV (RBC) [Entitic vol] 90.3 fL Normal 80.0-94.0 [facility] Comment on above: Performed By: #### C BC ####[place] Bdqzrbtnbh1840 [place] [id number] Pulliam MONO # 0.1 103/ul Critically low 0.3-0.8 [facility] Comment on above: Performed By: #### C BC ####[place] Mmdtzzogtz1325 [place] [address]Dr. Garima Pulliam Monocytes/100 WBC (Bld) 0.9 % Critically low 1.7-12.0 [facility] Comment on above: Performed By: #### C BC ####[place] Qtdaqlvcyw9944 [place] [address]Dr. Garima Pulliam NEUT # 5.6 103/ul Normal 1.4-6.5 [facility] Comment on above: Performed By: #### C BC ####[place] Yzpjhudumw5220 [place] [address]Dr. Garima Pulliam Neutrophils/100 WBC (Bld) 86.2 % Critically high 43.0-75.0 [facility] Comment on above: Performed By: #### C BC ####[place] Dxwictqjpn9516 [place] [address]Dr. Garima Pulliam Platelet mean volume (Bld) [Entitic vol] 9.1 fL Critically low 9.5-13.5 [facility] Comment on above: Performed By: #### C BC ####[place] [address]ngkzfcoke[address] [place], [place] [address]Dr. Garima Pulliam PLT 169 103/ul Normal 150-450 [facility] Comment on above: Performed By: #### C BC ####[place] Xiflfqdquq8330 [place] [address]Dr. Garima Pulliam RBC 5.17 106/ul Normal 4.70-6.10 [facility] Comment on above: Performed By: #### C BC ####[place] Dgnsgmgwri2421 [place] [id number]. Garima Pulliam WBC 6.5 103/ul Normal 4.0-11.0 [facility] Comment on above: Performed By: #### C BC ####[place] R[address]wonmrbuc[address] [place], [place] [address]Dr. Garima Pulliam D-DIMERon 01-13-2023 D-DIMER 0.41 mg/L FEU Normal <=0.59 [facility] Comment on above: Performed By: #### D DIM ####[place] Mizqxhddmy1456 [place] [address]Dr. Garima Pulliam D-DIMER COMMENTS SEE BELOW Normal [facility] Comment on above: Result Comment: Incr eases [...] generalized hospitalization. Performed By: #### D DIM ####[place] Ibtgygiwrl4170 [place] [address]Dr. Garima Pulliam PROF 14(COMP METB)on 023 Albumin [Mass/Vol] 3.4 g/dL Normal 3.4-5.0 [facility] Comment on above: Performed By: #### C MP ####[place] Dkbelocxda0117 [place] [address]Dr. Garima Pulliam Albumin/Globulin [Mass ratio] 1.3 {ratio} Normal [facility] Comment on above: Performed By: #### C MP ####[place] Vibxnhgbtq2842 [place] [address]Dr. Garima Pulliam ALP [Catalytic activity/Vol] 83 U/L Normal 46-116 [facility] Comment on above: Performed By: #### C MP ####[place] Tgbrtlfdzn3743 [place] [address]Dr. Garima Pulliam ALT [Catalytic activity/Vol] 25 U/L Normal 16-63 [facility] Comment on above: Performed By: #### C MP ####[place] Lfczhmvrxq0988 [place] [address]Dr. Garima Pulliam Anion gap [Moles/Vol] 14.5 mmol/L Normal [facility] Comment on above: Performed By: #### C MP ####[place] Evqcladqfd3263 [place] [phone]. Garima Pulliam AST [Catalytic activity/Vol] 19 U/L Normal 15-37 [facility] Comment on above: Performed By: #### C MP ####[place] Kqfkekqexf3037 [place] [phone]. Garima Pulliam Bilirubin [Mass/Vol] 0.4 mg/dL Normal 0.2-1.0 [facility] Comment on above: Performed By: #### C MP ####[place] Hbczgvckvn3028 [place] [phone]. Garima Pulliam Calcium [Mass/Vol] 8.7 mg/dL Normal 8.5-10.1 [facility] Comment on above: Performed By: #### C MP ####[place] Qoklaxussz5420 [place] [phone]. Garima Pulliam Chloride [Moles/Vol] 104 mmol/L Normal 98-107 [facility] Comment on above: Performed By: #### C MP ####[place] Ltwrdyendq7455 [place] [phone]. Garima Pulliam CO2 [Moles/Vol] 24.5 mmol/L Normal 21.0-32.0 [facility] Comment on above: Performed By: #### C MP ####[place] Kajpeeruka8999 [place] [phone]. Garima Pulliam Creatinine [Mass/Vol] 0.70 mg/dL Normal 0.70-1.30 [facility] Comment on above: Performed By: #### C MP ####[place] Atamnnadiy1053 [place] [phone]. Garima Pulliam EGFR-AF [place] >60 Normal >=60 [facility] Comment on above: Performed By: #### C MP ####[place] Vyuqaeejph2916 [place] [phone]. Garima Pulliam EGFR-NON AF [place] >60 Normal >=60 [facility] Comment on above: Performed By: #### C MP ####[place] Smsp[address]ltfw[address] [place], [place] [address]Dr. Garima Pulliam Globulin (S) [Mass/Vol] 2.6 g/dL Normal [facility] Comment on above: Performed By: #### C MP ####[place] Tepvokjstt[address] [place], [place] [address]Dr. Garima Pulliam Glucose [Mass/Vol] 196 mg/dL Critically high 74-106 T [facility] Comment on above: Performed By: #### C MP ####[place] Rfyyenpciq59[address] [place], [place] [address]Dr. Garima Pulliam Potassium [Moles/Vol] 4.0 mmol/L Normal 3.5-5.1 [facility] Comment on above: Performed By: #### C MP ####[place] Tjamoyvrrp[address] [place], [place] [address]Dr. Garima Pulliam Protein [Mass/Vol] 6.0 g/dL Critically low 6.4-8.[address] [facility] Comment on above: Performed By: #### C MP ####[place] Dkgrxnajrx9[address] [place], [place] [address]Dr. Garima Pulliam Sodium [Moles/Vol] 139 mmol/L Normal 136-145 [facility] Comment on above: Performed By: #### C MP ####[place] Oenazuaskk[address] [place], [place] [address]Dr. Garima Pulliam Urea nitrogen [Mass/Vol] 7.0 mg/dL Normal 7.0-18.0 [facility] Comment on above: Performed By: #### C MP ####[place] Ikhqruclvf[address] [place], [place] [address]Dr. Garima Pulliam Urea nitrogen/Creatinine [Mass ratio] 10.0 mg/mg Normal [facility] Comment on above: Performed By: #### C MP ####[place] Mgkeivvdqz[address] [place], [place] [address]Dr. Garima Pulliam BNPon 01-12-2023 Natriuretic peptide B (Bld) [Mass/Vol] 141.0 pg/mL Normal <=900.0 [facility] Comment on above: Performed By: #### C MP, BNP, HSTROPN ####[place] Njhbqzgint4329 [place] [phone]. Garima Heraclio CBC AUTO DIFFon 01-12-2023 BASO # 0.0 103/ul Normal 0.0-0.1 [facility] Comment on above: Performed By: #### C BC ####[place] Ljpfleangd[address] [place], [place] [address]Dr. Garima Pulliam Basophils/100 WBC (Bld) 0.2 % Normal 0.2-2.0 [facility] Comment on above: Performed By: #### C BC ####[place] Mdartbyjpy99[address] [place], [place] [address]Dr. Garima Pulliam EO # 0.2 103/ul Normal 0.0-0.7 [facility] Comment on above: Performed By: #### C BC ####[place] Kkyeicjssv[address] [place], [place] [address]Dr. Garima Pulliam Eosinophils/100 WBC (Bld) 2.7 % Normal 0.9-7.0 [facility] Comment on above: Performed By: #### C BC ####[place] Ahjsklxcwl[address] [place], [place] [address]Dr. Chapisrenu Pulliam Erythrocyte distribution width (RBC) [Ratio] 13.3 % Normal 11.0-15.0 [facility] Comment on above: Performed By: #### C BC ####[place] Yppnwmsrip[address] [place], [place] [address]Dr. Garima Pulliam Hematocrit (Bld) [Volume fraction] 42.3 % Normal 42.0-54.0 [facility] Comment on above: Performed By: #### C BC ####[place] Nfpsuhejjh3[address] [place], [place] [address]Dr. Chapisrenu Pullaim Hemoglobin (Bld) [Mass/Vol] 14.3 g/dL Normal 14.0-18.0 [facility] Comment on above: Performed By: #### C BC ####[place] Cmqkogisro[address] [place], [place] [address]Dr. Garima Pulliam IG # 0.02 10e3/ul Normal 0.00-0.03 [facility] Comment on above: Performed By: #### C BC ####[place] Nyxizwdbzq4346 [place] [phone]. Chapisrenu Pulliam IG % 0.2 % Normal 0.0-0.5 [facility] Comment on above: Performed By: #### C BC ####[place] Pvfjdgjgqi3942 [place] [phone]. Garima Pulliam LYMPH # 2.6 103/ul Normal 1.2-3.8 [facility] Comment on above: Performed By: #### C BC ####[place] Cqgjiyestl3831 [place] [address]Dr. Chapisrenu Pulliam Lymphocytes/100 WBC (Bld) 29.6 % Normal 20.5-60.0 [facility] Comment on above: Performed By: #### C BC ####[place] Truwuanlgs9826 [place] [address]Dr. Garima Pulliam MANUAL DIFF REQ NO Normal [facility] Comment on above: Performed By: #### C BC ####[place] Tlbzbahbpb4168 [place] [address]Dr. Garima Pulliam MCH (RBC) [Entitic mass] 30.2 pg Normal 25.9-34.0 [facility] Comment on above: Performed By: #### C BC ####[place] Lkdxkolfmk1198 [place] [address]Dr. Garima Pulliam MCHC (RBC) [Mass/Vol] 33.8 g/dL Normal 29.9-35.2 [facility] Comment on above: Performed By: #### C BC ####[place] Jtxylpuueo[address] [place], [place] [address]Dr. Garima Pulliam MCV (RBC) [Entitic vol] 89.2 fL Normal 80.0-94.0 [facility] Comment on above: Performed By: #### C BC ####[facility] [address]hav[address] [place], [place] [address]Dr. Garima Pulliam MONO # 0.7 103/ul Normal 0.3-0.8 [facility] Comment on above: Performed By: #### C BC ####[facility] Xgsvbwwjap1035 [place] [id number]. Garima Pulliam Monocytes/100 WBC (Bld) 8.3 % Normal 1.7-12.0 [facility] Comment on above: Performed By: #### C BC ####[facility] Wnvsndncjp7854 [place] [phone]. Garima Pulliam NEUT # 5.1 103/ul Normal 1.4-6.5 [facility] Comment on above: Performed By: #### C BC ####[facility] Fbhgwbwbgy1977 [place] [phone]. Garima Pulliam Neutrophils/100 WBC (Bld) 59.0 % Normal 43.0-75.0 [facility] Comment on above: Performed By: #### C BC ####[facility] Qgvustvpjc3[address] [place] [address]Dr. Garima Pulliam Platelet mean volume (Bld) [Entitic vol] 8.7 fL Critically low 9.5-13.5 [facility] Comment on above: Performed By: #### C BC ####[facility] Ozxyygzjmw1573 [place] [phone]. Garima Pulliam PLT 182 103/ul Normal 150-450 [facility] Comment on above: Performed By: #### C BC ####[facility] Zaqgxdjbns1533 [place] [id number]. Garima Pulliam RBC 4.74 106/ul Normal 4.70-6.10 [facility] Comment on above: Performed By: #### C BC ####[facility] Mqqfnhatel8236 [place] [id number]. Garima Pulliam WBC 8.7 103/ul Normal 4.0-11.0 [facility] Comment on above: Performed By: #### C BC ####[facility] Ahhfgckelo8605 [place] [id number]. Garima Pulliam [facility]-25 SARS-CoV-2 (COVID-19) RNA MARIE+probe Ql (Unsp spec) Not detected Normal NOT DETECTED [facility] Comment on above: Result Comment: When diagnostic [...] for this test is supported by the [employer] and Human Service's declaration that [...] be used). Performed By: #### C VDTB ####[facility] Ortkgzbepw[address] [place] [address]Dr. Garima Pulliam PROF 14(COMP METB)on 023 Albumin [Mass/Vol] 3.6 g/dL Normal 3.4-5.0 [facility] Comment on above: Performed By: #### C MP, BNP, HSTROPN ####[facility] Pqbryubyeq7[address] [place] [address]Dr. Garima Pulliam Albumin/Globulin [Mass ratio] 1.5 {ratio} Normal [facility] Comment on above: Performed By: #### C MP, BNP, HSTROPN ####[facility] Jdgulgxqxa7[address] [place] [address]Dr. Garima Pulliam ALP [Catalytic activity/Vol] 79 U/L Normal 46-116 [facility] Comment on above: Performed By: #### C MP, BNP, HSTROPN ####[facility] Uzpddofpdq9875 [place] [address]Dr. Garima Pulliam ALT [Catalytic activity/Vol] 27 U/L Normal 16-63 [facility] Comment on above: Performed By: #### C MP, BNP, HSTROPN ####[facility] Cusvetelce[address] [place] [address]Dr. Garima Pulliam Anion gap [Moles/Vol] 11.7 mmol/L Normal [facility] Comment on above: Performed By: #### C MP, BNP, HSTROPN ####[facility] Zrjlwmcdtb8516 [place] [address]Dr. Garima Pulliam AST [Catalytic activity/Vol] 21 U/L Normal 15-37 [facility] Comment on above: Performed By: #### C MP, BNP, HSTROPN ####[facility] Pvmictvmmf2462 [place] [address]Dr. Gariam Pulliam Bilirubin [Mass/Vol] 0.3 mg/dL Normal 0.2-1.0 [facility] Comment on above: Performed By: #### C MP, BNP, HSTROPN ####[facility] [address] [place], [place] [address]Dr. Garima Pulliam Calcium [Mass/Vol] 8.9 mg/dL Normal 8.5-10.1 [facility] Comment on above: Performed By: #### C MP, BNP, HSTROPN ####[facility] Gonihuhzeb[address] [place], [place] [address]Dr. Garima Pulliam Chloride [Moles/Vol] 107 mmol/L Normal 98-107 [facility] Comment on above: Performed By: #### C MP, BNP, HSTROPN ####[facility] Nqnhphxiex[address] [place], [place] [address]Dr. Garima Pulliam CO2 [Moles/Vol] 26.0 mmol/L Normal 21.0-32.0 [facility] Comment on above: Performed By: #### C MP, BNP, HSTROPN ####[facility] [address]cdy[address] [place], [place] [address]Dr. Garima Pulliam Creatinine [Mass/Vol] 0.65 mg/dL Critically low 0.70-1.30 [facility] Comment on above: Performed By: #### C MP, BNP, HSTROPN ####[facility] Dtmbtpcxmn7232 [place] [address]Dr. Garima Pulliam EGFR-AF [place]OREAN >60 Normal >=60 [facility] Comment on above: Performed By: #### C MP, BNP, HSTROPN ####[facility] Pqlsjlariu3573 [place] [address]Dr. Garima Pulliam EGFR-NON AF [place] >60 Normal >=60 [facility] Comment on above: Performed By: #### C MP, BNP, HSTROPN ####[facility] Abmuishwul[address] [place], [place] [address]Dr. Garima Pulliam Globulin (S) [Mass/Vol] 2.4 g/dL Normal [facility] Comment on above: Performed By: #### C MP, BNP, HSTROPN ####[facility] [address]jziomwlvj[address] [place], [place] [address]Dr. Garima Pulliam Glucose [Mass/Vol] 85 mg/dL Normal 74-106 [facility] Comment on above: Performed By: #### C MP, BNP, HSTROPN ####[facility] Fceafmseic[address] [place], [place] [address]Dr. Garima Pulliam Potassium [Moles/Vol] 3.7 mmol/L Normal 3.5-5.1 [facility] Comment on above: Performed By: #### C MP, BNP, HSTROPN ####[facility] [address]im[address]jh[address] [place], [place] [address]Dr. Garima Pulliam Protein [Mass/Vol] 6.0 g/dL Critically low 6.4-8.2 [facility] Comment on above: Performed By: #### C MP, BNP, HSTROPN ####[facility] Bviymezkjp[address] [place], [place] [address]Dr. Garima Pulliam Sodium [Moles/Vol] 141 mmol/L Normal 136-145 [facility] Comment on above: Performed By: #### C MP, BNP, HSTROPN ####[facility] Peyqkyuyhg[address] [place], [place] [address]Dr. Garima Pulliam Urea nitrogen [Mass/Vol] 5.0 mg/dL Critically low 7.0-18.0 [facility] Comment on above: Performed By: #### C MP, BNP, HSTROPN ####[facility] Rchkhbutsr17[address] [place] [address]Dr. Garima Pulliam Urea nitrogen/Creatinine [Mass ratio] 7.7 mg/mg Normal [facility] Comment on above: Performed By: #### C MP, BNP, HSTROPN ####[facility] Qpqlpdrtoe[address] [place], [place] [address]Dr. Garima Pulliam PROTIMEon 01-12-2023 INR Coag (PPP) [Relative time] 1.16 {INR} Normal [facility] Comment on above: Performed By: #### P TT, PT ####[facility] [address] [place] [address]. Gairma Pulliam INR GUIDELINES SEE BELOW Normal [facility] Comment on above: Result Comment: WESLEY RED INR: 2.0 - 3.0 CONDITIONS NOT LISTED BELOW 2.5 - 3.5 FOR PROSTHETIC HEART VALVE REPLACEMENT 2.5 - 3.5 RECURRENT THROMBOSIS Performed By: #### P TT, PT ####[facility] [address]ym[address]msgvta[address] [place], [place] [address]Dr. Garima Pulliam PT Coag (PPP) [Time] 12.2 s Critically high 9.0-11.6 [facility] Comment on above: Performed By: #### P TT, PT ####[facility] Wzykltiesi[address] [place], [place] [address]Dr. Garima Pulliam PTTon 01-12-2023 aPTT Coag (Bld) [Time] 29.1 s Normal 22.3-36.2 [facility] Comment on above: Performed By: #### P TT, PT ####[facility] Zwpsetzxre[address] [place], [place] [address]Dr. Garima Pulliam TROPONIN, HIGH SENSITIVITYon 01-12-2023 HSTROP 10.3 pg/mL Normal 4.0-76.1 [facility] Comment on above: Result Comment: CUT- OFF POINTS HAVE BEEN ESTABLISHED BASED ON THE FOURTH UNIVERSAL DEFINITIONS OF MYOCARDIALINFARCTION. THE UPPER REFERENCE LIMIT (URL) OF TROPONIN, DEFINED THE 99TH PERCENTILE OFcTnI DISTRIBUTION IN A REFERENCE POPULATION, HAS BEEN CONFIRMED THE DECISION THRESHOLDFOR NE DIAGNOSIS. Performed By: #### H STROPN ####[facility] L[address]apukgd[address] [place] [address]Dr. Garima Pulliam HSTROP 9.2 pg/mL Normal 4.0-76.1 [facility] Comment on above: Result Comment: CUT- OFF POINTS HAVE BEEN ESTABLISHED BASED ON THE FOURTH UNIVERSAL DEFINITIONS OF MYOCARDIALINFARCTION. THE UPPER REFERENCE LIMIT (URL) OF TROPONIN, DEFINED THE 99TH PERCENTILE OFcTnI DISTRIBUTION IN A REFERENCE POPULATION, HAS BEEN CONFIRMED THE DECISION THRESHOLDFOR NE DIAGNOSIS. Performed By: #### C MP, BNP, HSTROPN ####[facility] D[address]uygbnxf[address] [place] [address]Dr. Garima Pulliam XR CHEST 1 Von 01-12-2023 XR CHEST 1 V Normal [facility] XR CHEST 1 Von 01-01-2023 XR CHEST 1 V Normal [facility] CARDIAC NASH 3-6on 3 CK [Catalytic activity/Vol] 196 U/L Normal 39-308 [facility] Comment on above: Performed By: #### C MREP ####[facility] Bqdsrscgyy6[address] [place] [address]Dr. Garima Pulliam CK.MB [Mass/Vol] 7.41 ng/mL Critically high <=3.60 [facility] Comment on above: Performed By: #### C MREP ####[facility] Tphouwuzjj04[address] [place] [address]Dr. Garima Pulliam HSTROP 10.3 pg/mL Normal 4.0-76.1 [facility] Comment on above: Result Comment: CUT- OFF POINTS HAVE BEEN ESTABLISHED BASED ON THE FOURTH UNIVERSAL DEFINITIONS OF MYOCARDIALINFARCTION. THE UPPER REFERENCE LIMIT (URL) OF TROPONIN, DEFINED THE 99TH PERCENTILE OFcTnI DISTRIBUTION IN A REFERENCE POPULATION, HAS BEEN CONFIRMED THE DECISION THRESHOLDFOR NE DIAGNOSIS. Performed By: #### C MREP ####[facility] Nmrgauyqgy8[address] [place] [address]Dr. Garima Pulliam XR CHEST 1 Von 12-26-2022 XR CHEST 1 V Normal [facility] BNPon 12-25-2022 Natriuretic peptide B (Bld) [Mass/Vol] 98.0 pg/mL Normal <=900.0 [facility] Comment on above: Performed By: #### B LAND LEASING EXAMINER, BMP, CMADM ####[facility] Xucmmekwlk8932 [place] [phone]. Garima Pulliam CARDIAC NASH ADMITon 023 CK [Catalytic activity/Vol] 208 U/L Normal 39-308 [facility] Comment on above: Performed By: #### B LAND LEASING EXAMINER, BMP, CMADM ####[facility] Kvdoibqwmd6502 [place] [address]Dr. Garima Pulliam CK.MB [Mass/Vol] 7.63 ng/mL Critically high <=3.60 [facility] Comment on above: Performed By: #### B LAND LEASING EXAMINER, BMP, CMADM ####[facility] Elsbazoszv32[address] [place] [address]Dr. Garima Pulliam HSTROP 8.8 pg/mL Normal 4.0-76.1 [facility] Comment on above: Result Comment: CUT- OFF POINTS HAVE BEEN ESTABLISHED BASED ON THE FOURTH UNIVERSAL DEFINITIONS OF MYOCARDIALINFARCTION. THE UPPER REFERENCE LIMIT (URL) OF TROPONIN, DEFINED THE 99TH PERCENTILE OFcTnI DISTRIBUTION IN A REFERENCE POPULATION, HAS BEEN CONFIRMED THE DECISION THRESHOLDFOR NE DIAGNOSIS. Performed By: #### B LAND LEASING EXAMINER, BMP, CMADM ####[facility] Izvscyksmo7056 [place] [address]Dr. Garima Pulliam DORIS 83 ng/mL Normal 16-96 [facility] Comment on above: Performed By: #### B LAND LEASING EXAMINER, BMP, CMADM ####[facility] Jdhzqftajs5104 [place] [phone]. Garima Pulliam CBC AUTO DIFFon 12-25-2022 BASO # 0.0 103/ul Normal 0.0-0.1 [facility] Comment on above: Performed By: #### C BC ####[facility] Hqfclelqoi4703 [place] [address]Dr. Garima Pulliam Basophils/100 WBC (Bld) 0.0 % Critically low 0.2-2.0 [facility] Comment on above: Performed By: #### C BC ####[facility] [address]ijm[address] [place], [place] [address]Dr. Garima Pulliam EO # 0.0 103/ul Normal 0.0-0.7 [facility] Comment on above: Performed By: #### C BC ####[facility] [address]bf[address]xtoo[address] [place], [place] [address]Dr. Garima Pulliam Eosinophils/100 WBC (Bld) 0.7 % Critically low 0.9-7.0 [facility] Comment on above: Performed By: #### C BC ####[facility] Fkubidvyos[address] [place], [place] [address]Dr. Garima Pulliam Erythrocyte distribution width (RBC) [Ratio] 13.4 % Normal 11.0-15.0 [facility] Comment on above: Performed By: #### C BC ####[facility] Emqqmegifa[address] [place], [place] [address]Dr. Garima Pulliam Hematocrit (Bld) [Volume fraction] 42.9 % Normal 42.0-54.0 [facility] Comment on above: Performed By: #### C BC ####[facility] Yxhvxfpbop[address] [place], [place] [address]Dr. Chapisrenu Pulliam Hemoglobin (Bld) [Mass/Vol] 14.4 g/dL Normal 14.0-18.0 [facility] Comment on above: Performed By: #### C BC ####[facility] Iuddcffaif[address] [place], [place] [address]Dr. Garima Pulliam IG # 0.00 10e3/ul Normal 0.00-0.03 [facility] Comment on above: Performed By: #### C BC ####[facility] Hapwaukfkp[address] [place], [place] [address]Dr. Garima Pulliam IG % 0.0 % Normal 0.0-0.5 [facility] Comment on above: Performed By: #### C BC ####[facility] Zztoolhpqa[address] [place], [place] [address]Dr. Garima Pulliam LYMPH # 2.4 103/ul Normal 1.2-3.8 [facility] Comment on above: Performed By: #### C BC ####[facility] Jcttwgpwlf4673 [place] [address]Dr. Garima Pulliam Lymphocytes/100 WBC (Bld) 29.2 % Normal 20.5-60.0 [facility] Comment on above: Performed By: #### C BC ####[facility] Biqsnmvvag1644 [place] [address]DrAdalberto Pulliam MANUAL DIFF REQ NO Normal [facility] Comment on above: Performed By: #### C BC ####[facility] Qxvycfmzsf5711 [place] [address]Dr. Garima Pulliam MCH (RBC) [Entitic mass] 30.7 pg Normal 25.9-34.0 [facility] Comment on above: Performed By: #### C BC ####[facility] Cwt[address]icznxe[address] [place], [place] [address]Dr. Garima Pulliam MCHC (RBC) [Mass/Vol] 33.6 g/dL Normal 29.9-35.2 [facility] Comment on above: Performed By: #### C BC ####[facility] Robwaggacp[address] [place], [place] [address]DrAdalberto Pulliam MCV (RBC) [Entitic vol] 91.5 fL Normal 80.0-94.0 [facility] Comment on above: Performed By: #### C BC ####[facility] Fmtwbeadcq6016 [place] [address]Dr. Garima Pulliam MONO # 0.0 103/ul Critically low 0.3-0.8 [facility] Comment on above: Performed By: #### C BC ####[facility] Upbbwxbrfo[address] [place], [place] [address]DrAdalberto Pulliam Monocytes/100 WBC (Bld) 8.0 % Normal 1.7-12.0 [facility] Comment on above: Performed By: #### C BC ####[facility] Tpprznlrms[address] [place], [place] [address]DrAdalberto Pulliam NEUT # 5.1 103/ul Normal 1.4-6.5 [facility] Comment on above: Performed By: #### C BC ####[facility] Xjrwjtoeca4557 [place] [phone]. Garima Pulliam Neutrophils/100 WBC (Bld) 62.8 % Normal 43.0-75.0 [facility] Comment on above: Performed By: #### C BC ####[facility] Jannxkfsvv1362 [place] [phone]. Garima Pulliam Platelet mean volume (Bld) [Entitic vol] 8.6 fL Critically low 9.5-13.5 [facility] Comment on above: Performed By: #### C BC ####[facility] Gevtnihtzt2382 [place] [phone]. Garima Pulliam PLT 200 103/ul Normal 150-450 [facility] Comment on above: Performed By: #### C BC ####[facility] Jduwdiexnn3158 [place] [phone]. Garima Pulliam RBC 4.69 106/ul Critically low 4.70-6.10 The [facility] Comment on above: Performed By: #### C BC ####[facility] Ufftdspdfn5197 [place] [phone]. Garima Pulliam WBC 8.2 103/ul Normal 4.0-11.0 [facility] Comment on above: Performed By: #### C BC ####[facility] Vywsipsjyy4050 [place] [phone]. Garima Pulliam [facility]19 [facility]on SARS-CoV-2 (COVID-19) RNA MARIE+probe Ql (Unsp spec) Not detected Normal NOT DETECTED [facility] Comment on above: Result Comment: When diagnostic [...] for this test is supported by the [employer] and Human Service's declaration that [...] be used). Performed By: #### C VDTBH ####[facility] Mijkgmsqct[address] [place], [place] [address]Dr. Garima Pulliam INFLUENZA A AND B AGon 12-25 INFLUANE SEE BELOW Normal [facility] Comment on above: Result Comment: Nega tive for Flu A protein angiten. Infection due to Flu A cannot be ruled out. Flu A angiten in the sample may be below the detection limit of the test. Performed By: #### I NFLUAB ####[facility] [address] [place] [address]. Garima Pulliam INFLUBNEGH SEE BELOW Normal [facility] Comment on above: Result Comment: Nega tive for Flu B protein antigen. Infection due to Flu B cannot be ruled out. Flu B antigen in the sample may be below the detection limit of the test. Performed By: #### I NFLUAB ####[facility] Zolbezjeii[address] [place], [place] [address]Dr. renu Pulliam INFLUENZA A AG Negative Normal NEGATIVE SEE COMMENT [facility] Comment on above: Performed By: #### I NFLUAB ####[facility] Bfndzgcfev[address] [place], [place] [address]Dr. Garima Pulliam INFLUENZA B AG Negative Normal NEGATIVE SEE COMMENT [facility] Comment on above: Performed By: #### I NFLUAB ####[facility] [address]qsjsm[address] [place] [address]. Garima Pulliam PROF CHEM 8 (BAS METB)on Anion gap [Moles/Vol] 11.1 mmol/L Normal Th [facility] Comment on above: Performed By: #### B LAND LEASING EXAMINER, BMP, CMADM ####[facility] Ilcyqdmwss0320 [place] [phone]. Garima Pulliam Calcium [Mass/Vol] 8.5 mg/dL Normal 8.5-10.1 [facility] Comment on above: Performed By: #### B LAND LEASING EXAMINER, BMP, CMADM ####[facility] Meawkvhlbq6865 [place] [phone]. Garima Pulliam Chloride [Moles/Vol] 106 mmol/L Normal 98-107 [facility] Comment on above: Performed By: #### B LAND LEASING EXAMINER, BMP, CMADM ####[facility] Wuxcxhcmhv7870 [place] [address]Dr. Garima Pulliam CO2 [Moles/Vol] 27.4 mmol/L Normal 21.0-32.0 [facility] Comment on above: Performed By: #### B LAND LEASING EXAMINER, BMP, CMADM ####[facility] Kezfyeuihi0927 [place] [address]Dr. Garima Pulliam Creatinine [Mass/Vol] 0.65 mg/dL Critically low 0.70-1.30 [facility] Comment on above: Performed By: #### B LAND LEASING EXAMINER, BMP, CMADM ####[facility] Lbentcklxv7688 [place] [address]Dr. Garima Pulliam EGFR-AF [place] >60 Normal >=60 [facility] Comment on above: Performed By: #### B LAND LEASING EXAMINER, BMP, CMADM ####[facility] Bvnemljmcc5916 [place] [address]Dr. Garima Pulliam EGFR-NON AF [place] >60 Normal >=60 [facility] Comment on above: Performed By: #### B LAND LEASING EXAMINER, BMP, CMADM ####[facility] Rffklnybph5049 [place] [address]Dr. Garima Pulliam Glucose [Mass/Vol] 140 mg/dL Critically high 74-106 [facility] Comment on above: Performed By: #### B LAND LEASING EXAMINER, BMP, CMADM ####[facility] Sssjdbmjkc5803 [place] [address]Dr. Garima Pulliam Potassium [Moles/Vol] 3.5 mmol/L Normal 3.5-5.1 [facility] Comment on above: Performed By: #### B LAND LEASING EXAMINERMARVIN, NANCY ####[facility] Tliimxoecs2783 [place] [address]Dr. Chapisrenu Pulliam Sodium [Moles/Vol] 141 mmol/L Normal 136-145 [facility] Comment on above: Performed By: #### B LAND LEASING EXAMINERMARVIN, CMAANA ROSA ####[facility] Szabaupdwu750[address] [place] [address]Dr. Garima Pulliam Urea nitrogen [Mass/Vol] 8.0 mg/dL Normal 7.0-18.0 [facility] Comment on above: Performed By: #### B MARVIN FRENCH CMADM ####[facility] Nypergivwd5944 [place] [address]Dr. Garima Pulliam Urea nitrogen/Creatinine [Mass ratio] 12.3 mg/mg Normal [facility] Comment on above: Performed By: #### B MARVIN FRENCH CMAANA ROSA ####[facility] Ruudmtbzer3306 [place] [address]Dr. Garima Heraclio CARDIAC NASH ADMITon 023 CK [Catalytic activity/Vol] 165 U/L Normal 39-308 [facility] Comment on above: Performed By: #### B NANCY HERNANDEZ ####[facility] [address]modwzmsu[address] [place], [place] [address]Dr. Garima Pulliam CK.MB [Mass/Vol] 6.48 ng/mL Critically high <=3.60 [facility] Comment on above: Performed By: #### B MP, CMADM ####[facility] [address]ytohwgepy[address] [place], [place] [address]Dr. Garima Heraclio HSTROP 11.7 pg/mL Normal 4.0-76.1 [facility] Comment on above: Result Comment: CUT- OFF POINTS HAVE BEEN ESTABLISHED BASED ON THE FOURTH UNIVERSAL DEFINITIONS OF MYOCARDIALINFARCTION. THE UPPER REFERENCE LIMIT (URL) OF TROPONIN, DEFINED THE 99TH PERCENTILE OFcTnI DISTRIBUTION IN A REFERENCE POPULATION, HAS BEEN CONFIRMED THE DECISION THRESHOLDFOR NE DIAGNOSIS. Performed By: #### B DAVID, CMADM ####[facility] Mayxlfkvch6723 [place] [phone]. Garima Pulliam DORIS 83 ng/mL Normal 16-96 [facility] Comment on above: Performed By: #### B MP, CMADM ####[facility] Tqpluzkpnl2300 [place] [phone]. Garima Pulliam CBC AUTO DIFFon 12-10-2022 BASO # 0.0 103/ul Normal 0.0-0.1 [facility] Comment on above: Performed By: #### C BC ####[facility] Wemlmjfhwi4488 [place] [phone]. Garima Pulliam Basophils/100 WBC (Bld) 0.3 % Normal 0.2-2.0 [facility] Comment on above: Performed By: #### C BC ####[facility] Galnjyiddr0[address] [place] [address]Dr. Garima Pulliam EO # 0.1 103/ul Normal 0.0-0.7 [facility] Comment on above: Performed By: #### C BC ####[facility] Mfaehwpzts1106 [place] [phone]. Garima Pulliam Eosinophils/100 WBC (Bld) 0.4 % Critically low 0.9-7.0 [facility] Comment on above: Performed By: #### C BC ####[facility] Qlfvvdqyty9096 [place] [phone]. Garima Pulliam Erythrocyte distribution width (RBC) [Ratio] 13.2 % Normal 11.0-15.0 [facility] Comment on above: Performed By: #### C BC ####[facility] U[address] [place], [place] [address]Dr. Garima Pulliam Hematocrit (Bld) [Volume fraction] 42.4 % Normal 42.0-54.0 [facility] Comment on above: Performed By: #### C BC ####[facility] [address]me[address] [place], [place] [address]Dr. Garima Pulliam Hemoglobin (Bld) [Mass/Vol] 14.4 g/dL Normal 14.0-18.0 [facility] Comment on above: Performed By: #### C BC ####[facility] Xwjczkywrc1030 [place] [phone]. Garima Pulliam IG # 0.05 10e3/ul Critically high 0.00-0.03 [facility] Comment on above: Performed By: #### C BC ####[facility] Dfxkxdzlwz3765 [place] [phone]. Garima Pulliam IG % 0.4 % Normal 0.0-0.5 [facility] Comment on above: Performed By: #### C BC ####[facility] Fsjhskictp2492 [place] [address]Dr. Garima Pulliam LYMPH # 0.8 103/ul Critically low 1.2-3.8 [facility] Comment on above: Performed By: #### C BC ####[facility] Oabnquhskj6838 [place] [address]Dr. Garima Pulliam Lymphocytes/100 WBC (Bld) 6.5 % Critically low 20.5-60.0 [facility] Comment on above: Performed By: #### C BC ####[facility] Lpjklkyafl4982 [place] [address]Dr. Garima Pulliam MANUAL DIFF REQ NO Normal [facility] Comment on above: Performed By: #### C BC ####[facility] Zypruycsqb9689 [place] [address]Dr. Garima Pulliam MCH (RBC) [Entitic mass] 30.5 pg Normal 25.9-34.0 [facility] Comment on above: Performed By: #### C BC ####[facility] R[address]sdlan[address] [place], [place] [address]Dr. Garima Pulliam MCHC (RBC) [Mass/Vol] 34.0 g/dL Normal 29.9-35.2 [facility] Comment on above: Performed By: #### C BC ####[facility] Xsqbcnboxe[address] [place], [place] [address]Dr. Garima Pulliam MCV (RBC) [Entitic vol] 89.8 fL Normal 80.0-94.0 [facility] Comment on above: Performed By: #### C BC ####[facility] Wpaiclyups1790 [place] [id number]. Garima Pulliam MONO # 0.2 103/ul Critically low 0.3-0.8 [facility] Comment on above: Performed By: #### C BC ####[facility] Xhhqafmwfl2183 [place] [id number]. Garima Pulliam Monocytes/100 WBC (Bld) 2.0 % Normal 1.7-12.0 [facility] Comment on above: Performed By: #### C BC ####[facility] Krwjnhnmte2251 [place] [phone]. Garima Pulliam NEUT # 10.5 103/ul Critically high 1.4-6.5 [facility] Comment on above: Performed By: #### C BC ####[facility] Vbffioqurs0140 [place] [phone]. Garima Pulliam Neutrophils/100 WBC (Bld) 90.4 % Critically high 43.0-75.0 [facility] Comment on above: Performed By: #### C BC ####[facility] Jbkqqekxkb6587 [place] [phone]. Garima Pulliam Platelet mean volume (Bld) [Entitic vol] 9.4 fL Critically low 9.5-13.5 [facility] Comment on above: Performed By: #### C BC ####[facility] Bsrsoihhgy2484 [place] [phone]. Garima Pulliam PLT 198 103/ul Normal 150-450 [facility] Comment on above: Performed By: #### C BC ####[facility] Vvfohwmloe66[address] [place] [id number]. Garima Pulliam RBC 4.72 106/ul Normal 4.70-6.10 [facility] Comment on above: Performed By: #### C BC ####[facility] Vtmaamyeea5029 [place] [id number]. Garima Pulliam WBC 11.6 103/ul Critically high 4.0-11.0 [facility] Comment on above: Performed By: #### C BC ####[facility] Rlacklttbm[address] [place] [address]Dr. Garima Pulliam PROF CHEM 8 (BAS METB)on Anion gap [Moles/Vol] 11.3 mmol/L Normal [facility] Comment on above: Performed By: #### B DAVID, CMADM ####[facility] Dnentfkhwz28[address] [place] [address]Dr. Garima Pulliam Calcium [Mass/Vol] 8.9 mg/dL Normal 8.5-10.1 [facility] Comment on above: Performed By: #### B DAVID, NANCY ####[facility] Orxnfuzfzf22[address] [place] [address]Dr. Garima Pulliam Chloride [Moles/Vol] 103 mmol/L Normal 98-107 [facility] Comment on above: Performed By: #### B DAVID, CMADM ####[facility] Ppegdsexik[address] [place], [place] [address]Dr. Garima Pulliam CO2 [Moles/Vol] 28.2 mmol/L Normal 21.0-32.0 [facility] Comment on above: Performed By: #### Trae HERNANDEZ, NANCY ####[facility] Epzqwzpqdo85[address] [place] [address]Dr. Garima Pulliam Creatinine [Mass/Vol] 0.60 mg/dL Critically low 0.70-1.30 [facility] Comment on above: Performed By: #### Trae HERNANDEZ, CMAANA ROSA ####[facility] Asxhiekfgz23[address] [place] [address]Dr. Garima Pulliam EGFR-AF [place] >60 Normal >=60 [facility] Comment on above: Performed By: #### B DAVID, CMAANA ROSA ####[facility] Jiifohxyia8[address] [place] [address]Dr. Garima Pulliam EGFR-NON AF [place] >60 Normal >=60 [facility] Comment on above: Performed By: #### B DAVID, CMADM ####[facility] Lrwcmqhkjo5778 [place] [address]Dr. Garima Pulliam Glucose [Mass/Vol] 166 mg/dL Critically high 74-106 [facility] Comment on above: Performed By: #### B DAVID, CMADM ####[facility] Smmojiwyef0875 [place] [address]Dr. Garima Pulliam Potassium [Moles/Vol] 3.5 mmol/L Normal 3.5-5.1 [facility] Comment on above: Performed By: #### B DAVID, CMADM ####[facility] Zhbjndfcod[address] [place], [place] [address]Dr. Garima Pulliam Sodium [Moles/Vol] 139 mmol/L Normal 136-145 [facility] Comment on above: Performed By: #### B DAVID, CMADM ####[facility] Fupnydlrcp[address] [place], [place] [address]Dr. Chapisrenu Heraclio Urea nitrogen [Mass/Vol] 9.0 mg/dL Normal 7.0-18.0 [facility] Comment on above: Performed By: #### B DAVID, CMAANA ROSA ####[facility] Zlwvxamciy2[address] [place], [place] [address]Dr. Garima Pulliam Urea nitrogen/Creatinine [Mass ratio] 15.0 mg/mg Normal [facility] Comment on above: Performed By: #### B DAVID, CMAANA ROSA ####[facility] Kfczbkaale[address] [place], [place] [address]Dr. Garima Heraclio XR CHEST 1 Von 12-10-2022 XR CHEST 1 V Normal [facility] BNPon 11-27-2022 Natriuretic peptide B (Bld) [Mass/Vol] 95.0 pg/mL Normal <=900.0 [facility] Comment on above: Performed By: #### C MP, HSTROPN, BNP ####[facility] Wyufdezlvn[address] [place], [place] [address]Dr. Garima Pulliam CBC AUTO DIFFon 11-27-2022 BASO # 0.0 103/ul Normal 0.0-0.1 [facility] Comment on above: Performed By: #### C BC ####[facility] Izwhtaduiy[address] [place], [place] [address]Dr. Garima Pulliam Basophils/100 WBC (Bld) 0.2 % Normal 0.2-2.0 [facility] Comment on above: Performed By: #### C BC ####[facility] Pashydqfbx9809 [place] [phone]. Garima Pulliam EO # 0.2 103/ul Normal 0.0-0.7 [facility] Comment on above: Performed By: #### C BC ####[facility] Cnbthanggw8469 [place] [phone]. Garima Pulliam Eosinophils/100 WBC (Bld) 2.0 % Normal 0.9-7.0 [facility] Comment on above: Performed By: #### C BC ####[facility] Dsjdjypuau[address] [place], [place] [address]Dr. Garima Pulliam Erythrocyte distribution width (RBC) [Ratio] 13.2 % Normal 11.0-15.0 [facility] Comment on above: Performed By: #### C BC ####[facility] Aoryknmwyc[address] [place], [place] [address]Dr. Garima Pulliam Hematocrit (Bld) [Volume fraction] 42.4 % Normal 42.0-54.0 [facility] Comment on above: Performed By: #### C BC ####[facility] Xkvwqywobo[address] [place], [place] [address]Dr. Garima Pulliam Hemoglobin (Bld) [Mass/Vol] 14.4 g/dL Normal 14.0-18.0 [facility] Comment on above: Performed By: #### C BC ####[facility] Sixwwuxjxl74[address] [place], [place] [address]Dr. Garima Pulliam IG # 0.04 10e3/ul Critically high 0.00-0.03 [facility] Comment on above: Performed By: #### C BC ####[facility] Tpodsdtjoj[address] [place], [place] [address]Dr. Garima Pulliam IG % 0.4 % Normal 0.0-0.5 [facility] Comment on above: Performed By: #### C BC ####[facility] Qquuduqdzf07[address] [place], [place] [address]Dr. Garima Pulliam LYMPH # 2.2 103/ul Normal 1.2-3.8 [facility] Comment on above: Performed By: #### C BC ####[facility] Ubgzgezsms2409 [place] [phone]. Chapisrenu Pulliam Lymphocytes/100 WBC (Bld) 21.5 % Normal 20.5-60.0 [facility] Comment on above: Performed By: #### C BC ####[facility] Deniitrgpn1141 [place] [phone]. Garima Pulliam MANUAL DIFF REQ NO Normal The [facility] Comment on above: Performed By: #### C BC ####[facility] Tpakfgnicf1871 [place] [phone]. Garima Pulliam MCH (RBC) [Entitic mass] 30.4 pg Normal 25.9-34.0 [facility] Comment on above: Performed By: #### C BC ####[facility] Jslyqshphb3694 [place] [phone]. Garima Pulliam MCHC (RBC) [Mass/Vol] 34.0 g/dL Normal 29.9-35.2 [facility] Comment on above: Performed By: #### C BC ####[facility] Ungopnvlgw8327 [place] [phone]. Garima Pulliam MCV (RBC) [Entitic vol] 89.6 fL Normal 80.0-94.0 [facility] Comment on above: Performed By: #### C BC ####[facility] Mpcuacohje8700 [place] [id number]. Garima Pulliam MONO # 0.8 103/ul Normal 0.3-0.8 [facility] Comment on above: Performed By: #### C BC ####[facility] Kcobzitdjn3364 [place] [phone]. Garima Pulliam Monocytes/100 WBC (Bld) 7.7 % Normal 1.7-12.0 [facility] Comment on above: Performed By: #### C BC ####[facility] Zgymclslti4209 [place] [phone]. Garima Pulliam NEUT # 7.0 103/ul Critically high 1.4-6.5 [facility] Comment on above: Performed By: #### C BC ####[facility] Muxoqnttml1368 [place] [address]Dr. Garima Pulliam Neutrophils/100 WBC (Bld) 68.2 % Normal 43.0-75.0 [facility] Comment on above: Performed By: #### C BC ####[facility] Jywxbfzzin3210 [place] [phone]. Garima Pulliam Platelet mean volume (Bld) [Entitic vol] 8.9 fL Critically low 9.5-13.5 [facility] Comment on above: Performed By: #### C BC ####[facility] Hslwyqlohg5153 [place] [address]Dr. Garima Pulliam PLT 222 103/ul Normal 150-450 [facility] Comment on above: Performed By: #### C BC ####[facility] Vogoqsiejo0068 [place] [address]Dr. Garima Pulliam RBC 4.73 106/ul Normal 4.70-6.10 [facility] Comment on above: Performed By: #### C BC ####[facility] Sxgrtewfvz9[address] [place], [place] [address]Dr. Garima Pulliam WBC 10.3 103/ul Normal 4.0-11.0 [facility] Comment on above: Performed By: #### C BC ####[facility] Dhkiwelfic1858 [place] [address]DrAdalberto Pulliam PROF 14(COMP METB)on 023 Albumin [Mass/Vol] 3.7 g/dL Normal 3.4-5.0 [facility] Comment on above: Performed By: #### C MP, HSTROPN, BNP ####[facility] Fxcwddaanc7968 [place] [phone]. Garima Pulliam Albumin/Globulin [Mass ratio] 1.5 {ratio} Normal [facility] Comment on above: Performed By: #### C MP, HSTROPN, BNP ####[facility] Pjvrziebvm9800 [place] [phone] Pulliam ALP [Catalytic activity/Vol] 79 U/L Normal 46-116 [facility] Comment on above: Performed By: #### C DAVID HSTROPN, BNP ####[facility] Lclnnoklsj3041 [place] [address]Dr. Garima Pulliam ALT [Catalytic activity/Vol] 32 U/L Normal 16-63 [facility] Comment on above: Performed By: #### C DAVID, HSTROPN, BNP ####[facility] Cdavnyljtt1436 [place] [address]Dr. Garima Pulliam Anion gap [Moles/Vol] 9.5 mmol/L Normal [facility] Comment on above: Performed By: #### C DAVID HSTROPN, BNP ####[facility] Wtwpldzusy[address] [place], [place] [address]Dr. Garima Pulliam AST [Catalytic activity/Vol] 25 U/L Normal 15-37 [facility] Comment on above: Performed By: #### C DAVID, HSTROPN, BNP ####[facility] Wmovxagovz[address] [place], [place] [address]Dr. Garima Pulliam Bilirubin [Mass/Vol] 0.4 mg/dL Normal 0.2-1.0 [facility] Comment on above: Performed By: #### C DAVID HSTROPN, BNP ####[facility] Kgjppbafcn[address] [place], [place] [address]Dr. Garima Pulliam Calcium [Mass/Vol] 8.9 mg/dL Normal 8.5-10.1 [facility] Comment on above: Performed By: #### C DAVID, HSTROPN, BNP ####[facility] Yciqbkpypr8450 [place] [address]Dr. Garima Pulliam Chloride [Moles/Vol] 103 mmol/L Normal 98-107 [facility] Comment on above: Performed By: #### C DAVID, HSTROPN, BNP ####[facility] Fdfsrihupa7597 [place] [address]Dr. Garima Pulliam CO2 [Moles/Vol] 28.6 mmol/L Normal 21.0-32.0 [facility] Comment on above: Performed By: #### C MP, HSTROPN, BNP ####[facility] Wznvjiofqk0379 [place] [address]Dr. Garima Pulliam Creatinine [Mass/Vol] 0.72 mg/dL Normal 0.70-1.30 [facility] Comment on above: Performed By: #### C MP, HSTROPN, BNP ####[facility] Nyniglqmhi5176 [place] [address]Dr. Garima Pulliam EGFR-AF [place] >60 Normal >=60 [facility] Comment on above: Performed By: #### C MP, HSTROPN, BNP ####[facility] Tgipqlfhvx7[address] [place], [place] [address]Dr. Garima Pulliam EGFR-NON AF [place] >60 Normal >=60 [facility] Comment on above: Performed By: #### C MP, HSTROPN, BNP ####[facility] Axzkpwfyyr80[address] [place], [place] [address]Dr. Garima Pulliam Globulin (S) [Mass/Vol] 2.5 g/dL Normal [facility] Comment on above: Performed By: #### C MP, HSTROPN, BNP ####[facility] Dwaoyxoebp8[address] [place], [place] [address]Dr. Garima Pulliam Glucose [Mass/Vol] 114 mg/dL Critically high 74-106 [facility] Comment on above: Performed By: #### C MP, HSTROPN, BNP ####[facility] Bnkizejbml37[address] [place], [place] [address]Dr. Garima Pulliam Potassium [Moles/Vol] 4.1 mmol/L Normal 3.5-5.1 [facility] Comment on above: Performed By: #### C MP, HSTROPN, BNP ####[facility] Shxhldcjkm34[address] [place], [place] [address]Dr. Garima Pulliam Protein [Mass/Vol] 6.2 g/dL Critically low 6.4-8.[address] [facility] Comment on above: Performed By: #### C MP, HSTROPN, BNP ####[facility] Jilipuefzx9370 [place] [address]Dr. Garima Pulliam Sodium [Moles/Vol] 137 mmol/L Normal 136-145 [facility] Comment on above: Performed By: #### C MP, HSTROPN, BNP ####[facility] Qsxklpmxgl7410 [place] [address]Dr. Garima Pulliam Urea nitrogen [Mass/Vol] 13.0 mg/dL Normal 7.0-18.0 [facility] Comment on above: Performed By: #### C MP, HSTROPN, BNP ####[facility] Akjmmijukz1450 [place] [address]Dr. Chapisrenu Pulliam Urea nitrogen/Creatinine [Mass ratio] 18.1 mg/mg Normal [facility] Comment on above: Performed By: #### C MP, HSTROPN, BNP ####[facility] Vbyxdnoekf[address] [place], [place] [address]Dr. Garima Pulliam TROPONIN, HIGH SENSITIVITYon 11-27-2022 HSTROP 11.8 pg/mL Normal 4.0-76.1 [facility] Comment on above: Result Comment: CUT- OFF POINTS HAVE BEEN ESTABLISHED BASED ON THE FOURTH UNIVERSAL DEFINITIONS OF MYOCARDIALINFARCTION. THE UPPER REFERENCE LIMIT (URL) OF TROPONIN, DEFINED THE 99TH PERCENTILE OFcTnI DISTRIBUTION IN A REFERENCE POPULATION, HAS BEEN CONFIRMED THE DECISION THRESHOLDFOR NE DIAGNOSIS. Performed By: #### C MP, HSTROPN, BNP ####[facility] Bbpxfamvry3600 [place] [address]Dr. Garima Pulliam XR CHEST 1 Von 11-27-2022 XR CHEST 1 V Normal [facility] BNPon 11-20-2022 Natriuretic peptide B (Bld) [Mass/Vol] 73.0 pg/mL Normal <=900.0 [facility] Comment on above: Performed By: #### B MP, HSTROPN, BNP ####[facility] Guexqxdjks[address] [place], [place] [address]Dr. Chapisrenu Pulliam CBC AUTO DIFFon 11-20-2022 BASO # 0.0 103/ul Normal 0.0-0.1 [facility] Comment on above: Performed By: #### C BC ####[facility] Raicgscvlv5115 [place] [phone]. Garima Pulliam Basophils/100 WBC (Bld) 0.3 % Normal 0.2-2.0 [facility] Comment on above: Performed By: #### C BC ####[facility] Xdimqevqnk[address] [place], [place] [address]Dr. Garima Pullaim EO # 0.2 103/ul Normal 0.0-0.7 [facility] Comment on above: Performed By: #### C BC ####[facility] Bmoekiikwr[address] [place], [place] [address]Dr. Garima Pulliam Eosinophils/100 WBC (Bld) 2.1 % Normal 0.9-7.0 [facility] Comment on above: Performed By: #### C BC ####[facility] Ftgijcscmd[address] [place], [place] [address]Dr. Garima Pulliam Erythrocyte distribution width (RBC) [Ratio] 13.2 % Normal 11.0-15.0 [facility] Comment on above: Performed By: #### C BC ####[facility] Vxydfqbiav[address] [place], [place] [address]Dr. Garima Pulliam Hematocrit (Bld) [Volume fraction] 43.4 % Normal 42.0-54.0 [facility] Comment on above: Performed By: #### C BC ####[facility] Tsbaaxtnsx[address] [place], [place] [address]Dr. Garima Pulliam Hemoglobin (Bld) [Mass/Vol] 14.6 g/dL Normal 14.0-18.0 [facility] Comment on above: Performed By: #### C BC ####[facility] Ithzlyctuy[address] [place], [place] [address]Dr. Garima Pulliam IG # 0.02 10e3/ul Normal 0.00-0.03 [facility] Comment on above: Performed By: #### C BC ####[facility] Iacrjrvnkm[address] [place], [place] [address]Dr. Garima Pulliam IG % 0.2 % Normal 0.0-0.5 [facility] Comment on above: Performed By: #### C BC ####[facility] Lydfmcegzt5300 [place] [phone]. Chapisrenu Heraclio LYMPH # 2.1 103/ul Normal 1.2-3.8 [facility] Comment on above: Performed By: #### C BC ####[facility] Wfmvwkjren7988 [place] [phone]. Garima Pulliam Lymphocytes/100 WBC (Bld) 19.2 % Critically low 20.5-60.0 [facility] Comment on above: Performed By: #### C BC ####[facility] Wsaeysydmd6728 [place] [phone]. Garima Pulliam MANUAL DIFF REQ NO Normal [facility] Comment on above: Performed By: #### C BC ####[facility] Dsefndisqg5541 [place] [phone]. Garima Pulliam MCH (RBC) [Entitic mass] 30.4 pg Normal 25.9-34.0 [facility] Comment on above: Performed By: #### C BC ####[facility] Sjdsxnqtkf5727 [place] [phone]. Garima Pulliam MCHC (RBC) [Mass/Vol] 33.6 g/dL Normal 29.9-35.2 [facility] Comment on above: Performed By: #### C BC ####[facility] Knuucnzseu3351 [place] [phone]. Garima Pulliam MCV (RBC) [Entitic vol] 90.4 fL Normal 80.0-94.0 [facility] Comment on above: Performed By: #### C BC ####[facility] Nihuqxovwy5509 [place] [address]Dr. Garima Pulliam MONO # 0.6 103/ul Normal 0.3-0.8 [facility] Comment on above: Performed By: #### C BC ####[facility] Yjmlzeedbd8899 [place] [phone]. Garima Pulliam Monocytes/100 WBC (Bld) 5.8 % Normal 1.7-12.0 [facility] Comment on above: Performed By: #### C BC ####[facility] Smbcejwkxd0322 [place] [address]Dr. Garima Pulliam NEUT # 7.8 103/ul Critically high 1.4-6.5 [facility] Comment on above: Performed By: #### C BC ####[facility] Xiwlasegpw2569 [place] [phone]. Garima Pulliam Neutrophils/100 WBC (Bld) 72.4 % Normal 43.0-75.0 [facility] Comment on above: Performed By: #### C BC ####[facility] Sxxoiocndm9634 [place] [phone]. Garima Pulliam Platelet mean volume (Bld) [Entitic vol] 8.7 fL Critically low 9.5-13.5 [facility] Comment on above: Performed By: #### C BC ####[facility] Fpeesdhhbt8650 [place] [address]Dr. Garima Pulliam PLT 184 103/ul Normal 150-450 [facility] Comment on above: Performed By: #### C BC ####[facility] Tybhzntdpv4588 [place] [phone]. Garima Pulliam RBC 4.80 106/ul Normal 4.70-6.10 [facility] Comment on above: Performed By: #### C BC ####[facility] Kqjjnrjpmn4856 [place] [phone]. Garima Pulliam WBC 10.8 103/ul Normal 4.0-11.0 [facility] Comment on above: Performed By: #### C BC ####[facility] Oxnvyuynft[address] [place], [place] [address]Dr. Garima Pulliam Covid-19 PCR (CVDTB)on 10-24 SARS-CoV-2 (COVID-19) RNA MARIE+probe Ql (Unsp spec) Not detected Normal NOT DETECTED [facility] Comment on above: Result Comment: When diagnostic [...] for this test is supported by the [employer] and Human Service's declaration that [...] be used). Performed By: #### C VDTB ####[facility] Fvxpavekmt[address] [place], [place] [address]Dr. Garima Pulliam INFLUENZA A AND B AGon 11-20 [facility] SEE BELOW Normal [facility] Comment on above: Result Comment: Nega tive for Flu A protein angiten. Infection due to Flu A cannot be ruled out. Flu A angiten in the sample may be below the detection limit of the test. Performed By: #### I NFLUAB ####[facility] Temseyatgt[address] [place], [place] [address]Dr. Garima Pulliam INFLUBNEG SEE BELOW Normal [facility] Comment on above: Result Comment: Nega tive for Flu B protein antigen. Infection due to Flu B cannot be ruled out. Flu B antigen in the sample may be below the detection limit of the test. Performed By: #### I NFLUAB ####[facility] Oklozoymrv07[address] [place], [place] [address]Dr. Garima Pulliam INFLUENZA A AG Negative Normal NEGATIVE SEE COMMENT [facility] Comment on above: Performed By: #### I NFLUAB ####[facility] Lsbygwosmr[address] [place], [place] [address]Dr. Garima Pulliam INFLUENZA B AG Negative Normal NEGATIVE SEE COMMENT [facility] Comment on above: Performed By: #### I NFLUAB ####[facility] Ydkmuupydr55[address] [place], [place] [address]Dr. Garima Pulliam PROF CHEM 8 (BAS METB)on Anion gap [Moles/Vol] 8.2 mmol/L Normal [facility] Comment on above: Performed By: #### B MP, HSTROPN, BNP ####[facility] Glypyspgvt2031 [place] [address]Dr. Garima Pulliam Calcium [Mass/Vol] 8.7 mg/dL Normal 8.5-10.1 [facility] Comment on above: Performed By: #### B MP, HSTROPN, BNP ####[facility] Brsfzgdvim5918 [place] [address]Dr. Garima Pulliam Chloride [Moles/Vol] 103 mmol/L Normal 98-107 [facility] Comment on above: Performed By: #### B MP, HSTROPN, BNP ####[facility] Oridnsfdbc0791 [place] [address]Dr. Garima Pulliam CO2 [Moles/Vol] 29.4 mmol/L Normal 21.0-32.0 [facility] Comment on above: Performed By: #### B MP, HSTROPN, BNP ####[facility] Qrtqowtzgx[address] [place], [place] [address]Dr. Garima Pulliam Creatinine [Mass/Vol] 0.69 mg/dL Critically low 0.70-1.30 [facility] Comment on above: Performed By: #### B MP, HSTROPN, BNP ####[facility] Dsjrxrfccm1071 [place] [address]Dr. Garima Pulliam EGFR-AF [place] >60 Normal >=60 [facility] Comment on above: Performed By: #### B MP, HSTROPN, BNP ####[facility] Tqqvpe[address] [place], [place] [address]Dr. Garima Pulliam EGFR-NON AF [place] >60 Normal >=60 [facility] Comment on above: Performed By: #### B MP, HSTROPN, BNP ####[facility] Nqcfypnbzm2670 [place] [address]Dr. Chapisrenu Pulliam Glucose [Mass/Vol] 209 mg/dL Critically high 74-106 [facility] Comment on above: Performed By: #### B MP, HSTROPN, BNP ####[facility] Qrkurmkdkp4994 [place] [address]Dr. Garima Pulliam Potassium [Moles/Vol] 3.6 mmol/L Normal 3.5-5.1 [facility] Comment on above: Performed By: #### B MP, HSTROPN, BNP ####[facility] Qevfyrivqx3377 [place] [address]Dr. Garima Pulliam Sodium [Moles/Vol] 137 mmol/L Normal 136-145 [facility] Comment on above: Performed By: #### B MP, HSTROPN, BNP ####[facility] Mhtyhfxjlt9018 [place] [address]Dr. Garima Pulliam Urea nitrogen [Mass/Vol] 11.0 mg/dL Normal 7.0-18.0 [facility] Comment on above: Performed By: #### B MP, HSTROPN, BNP ####[facility] Gngbrxtqbt7901 [place] [address]Dr. Garima Pulliam Urea nitrogen/Creatinine [Mass ratio] 15.9 mg/mg Normal [facility] Comment on above: Performed By: #### B MP, HSTROPN, BNP ####[facility] Lcshvvnyuq3731 [place] [address]Dr. Garima Pulliam TROPONIN, HIGH SENSITIVITYon 11-20-2022 HSTROP 8.7 pg/mL Normal 4.0-76.1 [facility] Comment on above: Result Comment: CUT- OFF POINTS HAVE BEEN ESTABLISHED BASED ON THE FOURTH UNIVERSAL DEFINITIONS OF MYOCARDIALINFARCTION. THE UPPER REFERENCE LIMIT (URL) OF TROPONIN, DEFINED THE 99TH PERCENTILE OFcTnI DISTRIBUTION IN A REFERENCE POPULATION, HAS BEEN CONFIRMED THE DECISION THRESHOLDFOR NE DIAGNOSIS. Performed By: #### B MP, HSTROPN, BNP ####[facility] Nxbcwozafl6364 [place] [address]Dr. Garima Pulliam XR CHEST 1 Von 11-20-2022 XR CHEST 1 V Normal [facility] XR CHEST 1 Von 10-02-2022 XR CHEST 1 V Normal [facility] BNPon 09-29-2022 Natriuretic peptide B (Bld) [Mass/Vol] 107.0 pg/mL Normal <=900.0 [facility] Comment on above: Performed By: #### C MP, BNP, CMADM ####[facility] Rkjvwlpxub8323 [place] [address]Dr. Garima Pulliam CARDIAC NASH ADMITon 022 CK [Catalytic activity/Vol] 190 U/L Normal 39-308 [facility] Comment on above: Performed By: #### C MP, BNP, CMADM ####[facility] Walneahuks[address] [place] [address]Dr. Garima Pulliam CK.MB [Mass/Vol] 11.11 ng/mL Critically high <=3.[address] [facility] Comment on above: Performed By: #### C MP, BNP, CMADM ####[facility] Gkhflkowdv9451 [place] [address]Dr. Garima Pulliam HSTROP 11.8 pg/mL Normal 4.0-76.1 [facility] Comment on above: Result Comment: CUT- OFF POINTS HAVE BEEN ESTABLISHED BASED ON THE FOURTH UNIVERSAL DEFINITIONS OF MYOCARDIALINFARCTION. THE UPPER REFERENCE LIMIT (URL) OF TROPONIN, DEFINED THE 99TH PERCENTILE OFcTnI DISTRIBUTION IN A REFERENCE POPULATION, HAS BEEN CONFIRMED THE DECISION THRESHOLDFOR NE DIAGNOSIS. Performed By: #### C MP, BNP, CMADM ####[facility] Ugdqnjfsbc8796 [place] [address]Dr. Garima Pulliam DORIS 133 ng/mL Critically high 16-96 [facility] Comment on above: Performed By: #### C MP, BNP, CMADM ####[facility] Atlakzsias5094 [place] [address]Dr. Garima Pulliam CBC AUTO DIFFon 09-29-2022 BASO # 0.0 103/ul Normal 0.0-0.1 [facility] Comment on above: Performed By: #### C BC ####[facility] Vfbqjlwmbv1202 [place] [address]Dr. Garima Pulliam Basophils/100 WBC (Bld) 0.2 % Normal 0.2-2.0 [facility] Comment on above: Performed By: #### C BC ####[facility] Skmacnmudv6725 [place] [address]Dr. Garima Pulliam EO # 0.1 103/ul Normal 0.0-0.7 [facility] Comment on above: Performed By: #### C BC ####[facility] Tinivojkuf1524 [place] [address]Dr. Garima Pulliam Eosinophils/100 WBC (Bld) 1.4 % Normal 0.9-7.0 [facility] Comment on above: Performed By: #### C BC ####[facility] Gipxfnjasu1068 [place] [address]Dr. Garima Pulliam Erythrocyte distribution width (RBC) [Ratio] 13.7 % Normal 11.0-15.0 [facility] Comment on above: Performed By: #### C BC ####[facility] [address]uhlwvmus[address] [place], [place] [address]Dr. Garima Pulliam Hematocrit (Bld) [Volume fraction] 45.4 % Normal 42.0-54.0 [facility] Comment on above: Performed By: #### C BC ####[place] [address]df[address]mu[address] [place], [place] [address]Dr. Garima Pulliam Hemoglobin (Bld) [Mass/Vol] 14.8 g/dL Normal 14.0-18.0 [facility] Comment on above: Performed By: #### C BC ####[place] Dnzaaimwtd[address] [place], [place] [address]Dr. Garima Pulliam IG # 0.04 10e3/ul Critically high 0.00-0.03 [facility] Comment on above: Performed By: #### C BC ####[place] Xrgfskpxew[address] [place], [place] [address]Dr. Garima Heraclio IG % 0.5 % Normal 0.0-0.5 [facility] Comment on above: Performed By: #### C BC ####[place] Lwgdueoiuy[address] [place], [place] [address]DrAdalberto Pulliam LYMPH # 1.1 103/ul Critically low 1.2-3.8 [facility] Comment on above: Performed By: #### C BC ####[place] Otwohutvxv4116 [place] [address]DrAdalberto Pulliam Lymphocytes/100 WBC (Bld) 12.7 % Critically low 20.5-60.0 [facility] Comment on above: Performed By: #### C BC ####[place] Qyalmgpnag0731 [place] [address]DrAdalberto Pulliam MANUAL DIFF REQ NO Normal [facility] Comment on above: Performed By: #### C BC ####[place] Nslmoedefl9053 [place] [phone] Pulliam MCH (RBC) [Entitic mass] 30.0 pg Normal 25.9-34.0 [facility] [place] Comment on above: Performed By: #### C BC ####[place] Teovhzosih[address] [place], [place] [address]Dr. Garima Pulliam MCHC (RBC) [Mass/Vol] 32.6 g/dL Normal 29.9-35.2 [facility] Comment on above: Performed By: #### C BC ####[place] Njofaizyff[address] [place], [place] [address]DrAdalberto Pulliam MCV (RBC) [Entitic vol] 91.9 fL Normal 80.0-94.0 [facility] Comment on above: Performed By: #### C BC ####[place] Kthizdeymo6813 [place] [address]DrAdalberto Pulliam MONO # 0.4 103/ul Normal 0.3-0.8 [facility] Comment on above: Performed By: #### C BC ####[place] [address]om[address] [place], [place] [address]DrAdalberto Pulliam Monocytes/100 WBC (Bld) 4.8 % Normal 1.7-12.0 [facility] [place] Comment on above: Performed By: #### C BC ####[place] K[address]zjfax[address] [place], [place] [address]DrAdalberto Pulliam NEUT # 7.1 103/ul Critically high 1.4-6.5 The [facility] Comment on above: Performed By: #### C BC ####[place] Wvwzloipdf0291 [place] [phone]. Garima Pulliam Neutrophils/100 WBC (Bld) 80.4 % Critically high 43.0-75.0 [facility] Comment on above: Performed By: #### C BC ####[place] Alkpjeatti6440 [place] [phone]. Garima Pulliam Platelet mean volume (Bld) [Entitic vol] 9.1 fL Critically low 9.5-13.5 [facility] Comment on above: Performed By: #### C BC ####[place] Sgmjxhlbxw2294 [place] [phone]. Garima Pulliam PLT 200 103/ul Normal 150-450 [facility] Comment on above: Performed By: #### C BC ####[place] Jxhhztgmta4192 [place] [phone]. Garima Pulliam RBC 4.94 106/ul Normal 4.70-6.10 [facility] [place] Comment on above: Performed By: #### C BC ####[place] Xvonikxyvb0082 [place] [phone]. Garima Pulliam WBC 8.9 103/ul Normal 4.0-11.0 [facility] [place] Comment on above: Performed By: #### C BC ####[place] Shfxaftzmj8146 [place] [phone]. Garima Pulliam [facility]on SARS-CoV-2 (COVID-19) RNA MARIE+probe Ql (Unsp spec) Not detected Normal NOT DETECTED [facility] [place] Comment on above: Result Comment: When diagnostic [...] for this test is supported by the [place] of Health and Human Service's declaration that [...] be used). Performed By: #### C VDTBH ####[place] Farokibmbh3458 [place] [address]Dr. Garima Pulliam LACTATE/LACTIC ACIDon 2021 Lactate [Moles/Vol] 1.7 mmol/L Normal 0.4-1.9 [facility] Comment on above: Performed By: #### L ACT ####[place] [address]iepbts[address] [place], [place] [address]Dr. Garima Pulliam PROF 14(COMP METB)on 022 Albumin [Mass/Vol] 3.8 g/dL Normal 3.4-5.0 [facility] Comment on above: Performed By: #### C MP, BNP, CMADM ####[place] Utazejpyfm33[address] [place] [address]Dr. Garima Pulliam Albumin/Globulin [Mass ratio] 1.5 {ratio} Normal [facility] Comment on above: Performed By: #### C MP, BNP, CMADM ####[place] Ukehchnwzd[address] [place], [place] [address]Dr. Garima Pulliam ALP [Catalytic activity/Vol] 62 U/L Normal 46-116 [facility] [place] Comment on above: Performed By: #### C MP, BNP, CMADM ####[place] Tlospdxysr5945 [place] [address]Dr. Garima Pulliam ALT [Catalytic activity/Vol] 37 U/L Normal 16-63 [facility] Comment on above: Performed By: #### C MP, BNP, CMADM ####[place] Eohqozkytu1359 [place] [address]Dr. Garima Pulliam Anion gap [Moles/Vol] 8.0 mmol/L Normal [facility] Comment on above: Performed By: #### C MP, BNP, CMADM ####[place] Twvdypmkgx2702 [place] [address]Dr. Garima Pulliam AST [Catalytic activity/Vol] 20 U/L Normal 15-37 [facility] Comment on above: Performed By: #### C MP, BNP, CMADM ####[place] Ksaclazvmw7320 [place] [address]Dr. Garima Pulliam Bilirubin [Mass/Vol] 0.6 mg/dL Normal 0.2-1.0 [facility] [place] Comment on above: Performed By: #### C MP, BNP, CMADM ####[place] Hqwhzvjrkv0292 [place] [address]Dr. Garima Pulliam Calcium [Mass/Vol] 9.1 mg/dL Normal 8.5-10.1 [facility] Comment on above: Performed By: #### C MP, BNP, CMADM ####[place] Fwnrhwgosk2957 [place] [address]Dr. Garima Pulliam Chloride [Moles/Vol] 103 mmol/L Normal 98-107 [facility] [place] Comment on above: Performed By: #### C MP, BNP, CMADM ####[place] Qxfuyxipie1430 [place] [address]Dr. Garima Pulliam CO2 [Moles/Vol] 31.8 mmol/L Normal 21.0-32.0 The [facility] Comment on above: Performed By: #### C MP, BNP, CMADM ####[place] Bltpjrnlog7014 [place] [address]Dr. Garima Pulliam Creatinine [Mass/Vol] 0.63 mg/dL Critically low 0.70-1.30 [facility] [place] Comment on above: Performed By: #### C MP, BNP, CMADM ####[place] Saleswdccg0545 [place] [address]Dr. Garima Pulliam EGFR-AF [place] >60 Normal >=60 The [facility] Comment on above: Performed By: #### C MP, BNP, CMADM ####[place] Ycbjbxohmg1582 [place] [phone]. Garima Pulliam EGFR-NON AF [place] >60 Normal >=60 [facility] [place] Comment on above: Performed By: #### C MP, BNP, CMADM ####[place] Foetlnnnpp6380 [place] [address]Dr. Garima Pulliam Globulin (S) [Mass/Vol] 2.6 g/dL Normal [facility] [place] Comment on above: Performed By: #### C MP, BNP, CMADM ####[place] Hzelawfoqw8317 [place] [address]Dr. Garima Pulliam Glucose [Mass/Vol] 103 mg/dL Normal 74-106 The [facility] Comment on above: Performed By: #### C MP, BNP, CMADM ####[place] Frnivejzuo0946 [place] [address]Dr. Garima Pulliam Potassium [Moles/Vol] 3.8 mmol/L Normal 3.5-5.1 [facility] [place] Comment on above: Performed By: #### C MP, BNP, CMADM ####[place] Nuopstddfh8252 [place] [address]Dr. Garima Pulliam Protein [Mass/Vol] 6.4 g/dL Normal 6.4-8.2 [facility] Comment on above: Performed By: #### C MP, BNP, CMADM ####[place] Sastbgjktt2408 [place] [address]Dr. Garima Pulliam Sodium [Moles/Vol] 139 mmol/L Normal 136-145 [facility] Comment on above: Performed By: #### C MP, BNP, CMADM ####[place] Uuuysrwwmc6374 [place] [address]Dr. Garima Pulliam Urea nitrogen [Mass/Vol] 7.0 mg/dL Normal 7.0-18.0 [facility] [place] Comment on above: Performed By: #### C MP, BNP, CMADM ####[place] Chxsgcqycf7610 [place] [address]Dr. Garima Pulliam Urea nitrogen/Creatinine [Mass ratio] 11.1 mg/mg Normal [facility] [place] Comment on above: Performed By: #### C MP, BNP, CMADM ####[place] Asmgckdsup4605 [place] [address]Dr. Chapisrenu Pulliam PROTIMEon 09-29-2022 INR Coag (PPP) [Relative time] 1.14 {INR} Normal [facility] [place] Comment on above: Performed By: #### P T, PTT ####[place] Frxkhjhwuz[address] [place], [place] [address]Dr. Garima Pulliam INR GUIDELINES SEE BELOW Normal The [facility] Comment on above: Result Comment: WESLEY RED INR: 2.0 - 3.0 CONDITIONS NOT LISTED BELOW 2.5 - 3.5 FOR PROSTHETIC HEART VALVE REPLACEMENT 2.5 - 3.5 RECURRENT THROMBOSIS Performed By: #### P T, PTT ####[place] Fmsmwkfowq[address] [place], [place] [address]Dr. Garima Pulliam PT Coag (PPP) [Time] 12.2 s Critically high 9.0-11.6 [facility] [place] Comment on above: Performed By: #### P T, PTT ####[place] Itjelhdyfu[address] [place], [place] [address]Dr. Garima Pulliam PTTon 09-29-2022 aPTT Coag (Bld) [Time] 29.3 s Normal 22.3-36.2 [facility] [place] Comment on above: Performed By: #### P T, PTT ####[place] Pvnkhhdqeo[address] [place], [place] [address]Dr. Garima Pulliam XR CHEST 1 Von 09-29-2022 XR CHEST 1 V Normal [facility] CBC AUTO DIFFon 09-26-2022 BASO # 0.0 103/ul Normal 0.0-0.1 [facility] Comment on above: Performed By: #### C BC ####[place] Dfyqoutxhh[address] [place], [place] [address]Dr. Garima Pulliam Basophils/100 WBC (Bld) 0.2 % Normal 0.2-2.0 [facility] [place] Comment on above: Performed By: #### C BC ####[place] Mdepifchxp2676 [place] [address]Dr. Garima Pulliam EO # 0.1 103/ul Normal 0.0-0.7 [facility] [place] Comment on above: Performed By: #### C BC ####[place] Mmwpmfexuy[address] [place], [place] [address]Dr. Garima Pulliam Eosinophils/100 WBC (Bld) 1.0 % Normal 0.9-7.0 [facility] Comment on above: Performed By: #### C BC ####[place] Zomjrvsqvc[address] [place], [place] [address]Dr. Garima Pulliam Erythrocyte distribution width (RBC) [Ratio] 13.4 % Normal 11.0-15.0 [facility] Comment on above: Performed By: #### C BC ####[place] Wrzxdnwndg[address] [place], [place] [address]Dr. Garima Pulliam Hematocrit (Bld) [Volume fraction] 46.3 % Normal 42.0-54.0 [facility] Comment on above: Performed By: #### C BC ####[place] Jfgggxdblt[address] [place], [place] [address]Dr. Garima Pulliam Hemoglobin (Bld) [Mass/Vol] 15.3 g/dL Normal 14.0-18.0 [facility] Comment on above: Performed By: #### C BC ####[place] Jdgcscndur[address] [place], [place] [address]Dr. Garima Pulliam IG # 0.05 10e3/ul Critically high 0.00-0.03 The [facility] Comment on above: Performed By: #### C BC ####[place] Jtvorlbknb[address] [place], [place] [address]Dr. Garima Pulliam IG % 0.4 % Normal 0.0-0.5 [facility] [place] Comment on above: Performed By: #### C BC ####[place] Glrgymzcot[address] [place], [place] [address]Dr. Garima Pulliam LYMPH # 1.7 103/ul Normal 1.2-3.8 [facility] [place] Comment on above: Performed By: #### C BC ####[place] Cengatgcfd5753 [place] [address]Dr. Chapisrenu Pulliam Lymphocytes/100 WBC (Bld) 12.7 % Critically low 20.5-60.0 [facility] [place] Comment on above: Performed By: #### C BC ####[place] Raghlxifkc2492 [place] [address]Dr. Chapisrenu Pulliam MANUAL DIFF REQ NO Normal The [facility] Comment on above: Performed By: #### C BC ####[place] Paaupsllne8586 [place] [address]Dr. Garima Pulliam MCH (RBC) [Entitic mass] 30.1 pg Normal 25.9-34.0 [facility] [place] Comment on above: Performed By: #### C BC ####[place] Bwphdssimm[address] [place], [place] [address]Dr. Garima Pulliam MCHC (RBC) [Mass/Vol] 33.0 g/dL Normal 29.9-35.2 [facility] [place] Comment on above: Performed By: #### C BC ####[place] Hjwnwivenl[address] [place], [place] [address]Dr. Garima Pulliam MCV (RBC) [Entitic vol] 91.1 fL Normal 80.0-94.0 [facility] [place] Comment on above: Performed By: #### C BC ####[place] Bckpeoiydu64[address] [place], [place] [address]Dr. Garima Pulliam MONO # 0.9 103/ul Critically high 0.3-0.8 The [facility] Comment on above: Performed By: #### C BC ####[place] Nxuqgjcqjz[address] [place], [place] [address]Dr. Garima Pulliam Monocytes/100 WBC (Bld) 7.0 % Normal 1.7-12.0 [facility] [place] Comment on above: Performed By: #### C BC ####[place] Vyvsyaqyfk[address] [place], [place] [address]Dr. Garima Pulliam NEUT # 10.4 103/ul Critically high 1.4-6.5 The [facility] Comment on above: Performed By: #### C BC ####[place] Rwofnnzrrz3286 [place] [address]Dr. Garima Pullima Neutrophils/100 WBC (Bld) 78.7 % Critically high 43.0-75.0 [facility] Comment on above: Performed By: #### C BC ####[place] Rdytbzmbsr0005 [place] [address]Dr. Garima Pulliam Platelet mean volume (Bld) [Entitic vol] 8.9 fL Critically low 9.5-13.5 [facility] [place] Comment on above: Performed By: #### C BC ####[place] Cgpnfigwui4073 [place] [address]Dr. Garima Pulliam PLT 195 103/ul Normal 150-450 [facility] Comment on above: Performed By: #### C BC ####[place] Pxglgkkilx7756 [place] [address]Dr. Garima Pulliam RBC 5.08 106/ul Normal 4.70-6.10 [facility] [place] Comment on above: Performed By: #### C BC ####[place] Fmopesqxfx7417 [place] [address]Dr. Garima Pulliam WBC 13.2 103/ul Critically high 4.0-11.0 The [facility] Comment on above: Performed By: #### C BC ####[place] Dfmvhnrlne0948 [place] [address]Dr. Garima Pulliam PROF 14(COMP METB)on 022 Albumin [Mass/Vol] 3.5 g/dL Normal 3.4-5.0 [facility] Comment on above: Performed By: #### C DAVID HSTROPN ####[place] Bugmraupvh3697 [place] [phone]. Garima Pulliam Albumin/Globulin [Mass ratio] 1.2 {ratio} Normal [facility] [place] Comment on above: Performed By: #### C DAVID, HSTROPN ####[place] Cnbbubhjjo2985 [place] [phone]. Garima Pulliam ALP [Catalytic activity/Vol] 71 U/L Normal 46-116 [facility] [place] Comment on above: Performed By: #### C DAVID, HSTROPN ####[place] Racebgygoc4295 [place] [address]Dr. Garima Pulliam ALT [Catalytic activity/Vol] 37 U/L Normal 16-63 [facility] Comment on above: Performed By: #### C MP, HSTROPN ####[place] Hkegyowrba5295 [place] [address]Dr. Garima Pulliam Anion gap [Moles/Vol] 4.8 mmol/L Normal [facility] Comment on above: Performed By: #### C MP, HSTROPN ####[place] Fftorduiag2749 [place] [address]Dr. Garima Pulliam AST [Catalytic activity/Vol] 21 U/L Normal 15-37 [facility] Comment on above: Performed By: #### C DAVID, HSTROPN ####[place] Madgdmuuku[address] [place], [place] [address]Dr. Garima Pulliam Bilirubin [Mass/Vol] 0.3 mg/dL Normal 0.2-1.0 [facility] Comment on above: Performed By: #### C DAVID, HSTROPN ####[place] Rzywggxlzv[address] [place], [place] [address]Dr. Garima Pulliam Calcium [Mass/Vol] 8.9 mg/dL Normal 8.5-10.1 [facility] Comment on above: Performed By: #### C DAVID, HSTROPN ####[place] Ixkfljivtb[address] [place], [place] [address]Dr. Garima Pulliam Chloride [Moles/Vol] 106 mmol/L Normal 98-107 [facility] Comment on above: Performed By: #### C MP, HSTROPN ####[place] Diqouhdcfg[address] [place], [place] [address]Dr. Garima Pulliam CO2 [Moles/Vol] 29.8 mmol/L Normal 21.0-32.0 [facility] Comment on above: Performed By: #### C MP, HSTROPN ####[place] Jccobvpknt[address] [place], [place] [address]Dr. Yilan Pulliam Creatinine [Mass/Vol] 0.68 mg/dL Critically low 0.70-1.30 [facility] Comment on above: Performed By: #### C DAVID, HSTROPN ####[place] Esgjzuzvdl6617 [place] [address]Dr. Garima Pulliam EGFR-AF [place] >60 Normal >=60 [facility] Comment on above: Performed By: #### C DAVID, HSTROPN ####[place] Ddklkpiopa8536 [place] [address]Dr. Garima Pulliam EGFR-NON AF [place] >60 Normal >=60 [facility] Comment on above: Performed By: #### C DAVID, HSTROPN ####[place] Myeuacihwf3065 [place] [address]Dr. Garima Pulliam Globulin (S) [Mass/Vol] 2.8 g/dL Normal [facility] Comment on above: Performed By: #### C DAVID, HSTROPN ####[place] Rjuibekbrx5236 [place] [address]Dr. Garima Pulliam Glucose [Mass/Vol] 133 mg/dL Critically high 74-106 [facility] Comment on above: Performed By: #### C DAVID, HSTROPN ####[place] Rlfflvjlpe2052 [place] [address]Dr. Garima Pulliam Potassium [Moles/Vol] 3.6 mmol/L Normal 3.5-5.1 [facility] Comment on above: Performed By: #### C DAVID, HSTROPN ####[place] Anvljjkddr9556 [place] [address]Dr. Garima Pulliam Protein [Mass/Vol] 6.3 g/dL Critically low 6.4-8.[address] [facility] Comment on above: Performed By: #### C DAVID, HSTROPN ####[place] Yyztnfhtli8645 [place] [address]Dr. Garima Pulliam Sodium [Moles/Vol] 137 mmol/L Normal 136-145 [facility] Comment on above: Performed By: #### C DAVID, HSTROPN ####[place] Ovfdaqauch5967 [place] [phone]. Garima Pulliam Urea nitrogen [Mass/Vol] 15.0 mg/dL Normal 7.0-18.0 [facility] [place] Comment on above: Performed By: #### C MP, HSTROPN ####[place] Qnjfqglnjp7448 [place] [phone]. Garima Pulliam Urea nitrogen/Creatinine [Mass ratio] 22.1 mg/mg Normal [facility] [place] Comment on above: Performed By: #### C MP, HSTROPN ####[place] Kanjwjghho5123 [place] [phone]. Garima Pulliam TROPONIN, HIGH SENSITIVITYon 09-26-2022 HSTROP 12.8 pg/mL Normal 4.0-76.1 [facility] [place] Comment on above: Result Comment: CUT- OFF POINTS HAVE BEEN ESTABLISHED BASED ON THE FOURTH UNIVERSAL DEFINITIONS OF MYOCARDIALINFARCTION. THE UPPER REFERENCE LIMIT (URL) OF TROPONIN, DEFINED THE 99TH PERCENTILE OFcTnI DISTRIBUTION IN A REFERENCE POPULATION, HAS BEEN CONFIRMED THE DECISION THRESHOLDFOR NE DIAGNOSIS. Performed By: #### C MP, HSTROPN ####[place] Zjgqvqpgdn7163 [place] [address]Dr. Garima Pulliam XR CHEST 1 Von 09-26-2022 XR CHEST 1 V Normal [facility] XR CHEST 1 Von 09-16-2022 XR CHEST 1 V Normal [facility] CBC AUTO DIFFon 09-15-2022 BASO # 0.0 103/ul Normal 0.0-0.1 [facility] Comment on above: Performed By: #### C BC ####[place] Hvqrrrvems9916 [place] [phone]. Garima Heraclio Basophils/100 WBC (Bld) 0.1 % Critically low 0.2-2.0 [facility] [place] Comment on above: Performed By: #### C BC ####[place] Yigkkiptst7767 [place] [phone]. Garima Heraclio EO # 0.0 103/ul Normal 0.0-0.7 [facility] Comment on above: Performed By: #### C BC ####[place] Jiwkkgcckj4224 [place] [phone]. Garima Pulliam Eosinophils/100 WBC (Bld) 0.1 % Critically low 0.9-7.0 [facility] Comment on above: Performed By: #### C BC ####[place] Hpnwhtucbv4188 [place] [address]Dr. Garima Pulliam Erythrocyte distribution width (RBC) [Ratio] 14.1 % Normal 11.0-15.0 [facility] Comment on above: Performed By: #### C BC ####[place] Ebdledhulo[address] [place], [place] [address]Dr. Gairma Pulliam Hematocrit (Bld) [Volume fraction] 46.1 % Normal 42.0-54.0 [facility] Comment on above: Performed By: #### C BC ####[place] Imwtkcgudk64[address] [place], [place] [address]Dr. Garima Pulliam Hemoglobin (Bld) [Mass/Vol] 15.0 g/dL Normal 14.0-18.0 [facility] Comment on above: Performed By: #### C BC ####[place] Ybsvsijgda[address] [place], [place] [address]Dr. Garima Pulliam IG # 0.03 10e3/ul Normal 0.00-0.03 [facility] Comment on above: Performed By: #### C BC ####[place] Ueefvzxwas6[address] [place], [place] [address]Dr. Garima Pulliam IG % 0.3 % Normal 0.0-0.5 [facility] [place] Comment on above: Performed By: #### C BC ####[place] Fsngkrbxvv[address] [place], [place] [address]Dr. Garima Pulliam LYMPH # 0.6 103/ul Critically low 1.2-3.8 The [facility] Comment on above: Performed By: #### C BC ####[place] Jqtawdelpa9[address] [place], [place] [address]Dr. Garima Pulliam Lymphocytes/100 WBC (Bld) 5.8 % Critically low 20.5-60.0 [facility] Comment on above: Performed By: #### C BC ####[place] Vrkrtiyhbc6716 [place] [phone]. Garima Pulliam MANUAL DIFF REQ NO Normal [facility] Comment on above: Performed By: #### C BC ####[place] Ebdeshhadi5000 [place] [phone]. Garima Pulliam MCH (RBC) [Entitic mass] 30.2 pg Normal 25.9-34.0 [facility] Comment on above: Performed By: #### C BC ####[place] Kpwdtrjnfo0917 [place] [phone]. Garima Pulliam MCHC (RBC) [Mass/Vol] 32.5 g/dL Normal 29.9-35.2 [facility] Comment on above: Performed By: #### C BC ####[place] Exmolgqjor9[address] [place], [place] [address]Dr. Garima Pulliam MCV (RBC) [Entitic vol] 92.8 fL Normal 80.0-94.0 [facility] Comment on above: Performed By: #### C BC ####[place] Deurbndyzf[address] [place], [place] [address]Dr. Garima Pulliam MONO # 0.3 103/ul Normal 0.3-0.8 [facility] Comment on above: Performed By: #### C BC ####[place] Afruhljxvf27[address] [place], [place] [address]Dr. Garima Pulliam Monocytes/100 WBC (Bld) 3.2 % Normal 1.7-12.0 [facility] Comment on above: Performed By: #### C BC ####[place] Zinjprugbc68[address] [place], [place] [address]Dr. Garima Pulliam NEUT # 9.8 103/ul Critically high 1.4-6.5 [facility] Comment on above: Performed By: #### C BC ####[place] W[address]lxtgysxd[address] [place], [place] [address]Dr. Garima Pulliam Neutrophils/100 WBC (Bld) 90.5 % Critically high 43.0-75.0 [facility] Comment on above: Performed By: #### C BC ####[place] Jszaltmqgb0215 [place] [address]Dr. Garima Pulliam Platelet mean volume (Bld) [Entitic vol] 9.4 fL Critically low 9.5-13.5 [facility] Comment on above: Performed By: #### C BC ####[place] Tojtmgcmki4754 [place] [address]Dr. Garima Pulliam PLT 208 103/ul Normal 150-450 [facility] Comment on above: Performed By: #### C BC ####[place] Wczjxrznoa[address] [place], [place] [address]Dr. Garima Pulliam RBC 4.97 106/ul Normal 4.70-6.10 [facility] Comment on above: Performed By: #### C BC ####[place] Dvfckjpfiy37[address] [place], [place] [address]Dr. Garima Pulliam WBC 10.8 103/ul Normal 4.0-11.0 [facility] Comment on above: Performed By: #### C BC ####[place] Bjoeqdxewl[address] [place], [place] [address]Dr. Garima Pulliam PROF 14(COMP METB)on 022 Albumin [Mass/Vol] 4.0 g/dL Normal 3.4-5.0 [facility] Comment on above: Performed By: #### C MP ####[place] Pooezeuvtw[address] [place], [place] [address]Dr. Garima Pulliam Albumin/Globulin [Mass ratio] 1.5 {ratio} Normal [facility] Comment on above: Performed By: #### C MP ####[place] Mtdgngmbqd[address] [place], [place] [address]Dr. Garima Pulliam ALP [Catalytic activity/Vol] 73 U/L Normal 46-116 [facility] Comment on above: Performed By: #### C MP ####[place] Mulgkaiacr[address] [place], [place] [address]Dr. Garima Pulliam ALT [Catalytic activity/Vol] 42 U/L Normal 16-63 [facility] Comment on above: Performed By: #### C MP ####[place] Uwmpvtgjjq3559 [place] [address]Dr. Garima Pulliam Anion gap [Moles/Vol] 9.1 mmol/L Normal [facility] Comment on above: Performed By: #### C MP ####[place] Fcuduvlorz8181 [place] [address]Dr. Garima Pulliam AST [Catalytic activity/Vol] 28 U/L Normal 15-37 [facility] Comment on above: Performed By: #### C MP ####[place] Cweowjnzbo2489 [place] [address]Dr. Garima Pulliam Bilirubin [Mass/Vol] 0.6 mg/dL Normal 0.2-1.0 [facility] Comment on above: Performed By: #### C MP ####[place] Gwxpjpqjca[address] [place], [place] [address]Dr. Garima Pulliam Calcium [Mass/Vol] 8.6 mg/dL Normal 8.5-10.1 [facility] Comment on above: Performed By: #### C MP ####[place] [address] [place], [place] [address]Dr. Garima Pulliam Chloride [Moles/Vol] 105 mmol/L Normal 98-107 [facility] Comment on above: Performed By: #### C MP ####[place] Kulnfoqgbw[address] [place], [place] [address]Dr. Garima Pulliam CO2 [Moles/Vol] 28.5 mmol/L Normal 21.0-32.0 [facility] Comment on above: Performed By: #### C MP ####[place] Ldampccxzn[address] [place], [place] [address]Dr. Garima Pulliam Creatinine [Mass/Vol] 0.78 mg/dL Normal 0.70-1.30 [facility] [place] Comment on above: Performed By: #### C MP ####[place] [address] [place] [address]Dr. Garima Pulliam EGFR-AF [place]TH [place]OREAN >60 Normal >=60 [facility] Comment on above: Performed By: #### C MP ####[place] Egqfbzvclt6567 [place] [address]Dr. Garima Pulliam EGFR-NON AF [place] >60 Normal >=60 [facility] [place] Comment on above: Performed By: #### C MP ####[place] Wrkqdycdrj9[address] [place] [address]Dr. Garima Pulliam Globulin (S) [Mass/Vol] 2.7 g/dL Normal [facility] Comment on above: Performed By: #### C MP ####[place] Hooqrinchb1813 [place] [address]Dr. Garima Pulliam Glucose [Mass/Vol] 220 mg/dL Critically high 74-106 [facility] Comment on above: Performed By: #### C MP ####[place] [address] [place], [place] [address]Dr. Garima Pulliam Potassium [Moles/Vol] 3.6 mmol/L Normal 3.5-5.1 [facility] [place] Comment on above: Performed By: #### C MP ####[place] Zgvhqtay[address] [place], [place] [address]Dr. Garima Pulliam Protein [Mass/Vol] 6.7 g/dL Normal 6.4-8.2 [facility] Comment on above: Performed By: #### C MP ####[place] [address]qysqxyt[address] [place], [place] [address]Dr. Garima uPlliam Sodium [Moles/Vol] 139 mmol/L Normal 136-145 [facility] Comment on above: Performed By: #### C MP ####[place] [address] [place], [place] [address]Dr. Garima Pulliam Urea nitrogen [Mass/Vol] 11.0 mg/dL Normal 7.0-18.0 [facility] [place] Comment on above: Performed By: #### C MP ####[place] [address]ksgbpcqau[address] [place], [place] [address]Dr. Garima Pulliam Urea nitrogen/Creatinine [Mass ratio] 14.1 mg/mg Normal [facility] Comment on above: Performed By: #### C MP ####[place] [address] [place], [place] [address]Dr. Garima Pulliam CARDIAC NASH 3-6on 2 CK [Catalytic activity/Vol] 240 U/L Normal 39-308 [facility] Comment on above: Performed By: #### C MREP ####[place] Bweoisogrr60[address] [place], [place] [address]Pq. Garima Pulliam CK.MB [Mass/Vol] 10.38 ng/mL Critically high <=3.60 [facility] Comment on above: Performed By: #### C MREP ####[place] Voluahoath6539 [place] [id number]. Garima Pulliam HSTROP 18.5 pg/mL Normal 4.0-76.1 [facility] Comment on above: Result Comment: CUT- OFF POINTS HAVE BEEN ESTABLISHED BASED ON THE FOURTH UNIVERSAL DEFINITIONS OF MYOCARDIALINFARCTION. THE UPPER REFERENCE LIMIT (URL) OF TROPONIN, DEFINED THE 99TH PERCENTILE OFcTnI DISTRIBUTION IN A REFERENCE POPULATION, HAS BEEN CONFIRMED THE DECISION THRESHOLDFOR NE DIAGNOSIS. Performed By: #### C MREP ####[place] Phnddrmzmp1574 [place] [phone]. Garima Pulliam CK [Catalytic activity/Vol] 257 U/L Normal 39-308 [facility] Comment on above: Performed By: #### C MREP ####[place] Twoxdxubyp7388 [place] [phone]. Garima Pulliam CK.MB [Mass/Vol] 9.89 ng/mL Critically high <=3.60 [facility] Comment on above: Performed By: #### C MREP ####[place] Wspveacvqv0282 [place] [phone]. Garima Pulliam HSTROP 16.9 pg/mL Normal 4.0-76.1 [facility] Comment on above: Result Comment: CUT- OFF POINTS HAVE BEEN ESTABLISHED BASED ON THE FOURTH UNIVERSAL DEFINITIONS OF MYOCARDIALINFARCTION. THE UPPER REFERENCE LIMIT (URL) OF TROPONIN, DEFINED THE 99TH PERCENTILE OFcTnI DISTRIBUTION IN A REFERENCE POPULATION, HAS BEEN CONFIRMED THE DECISION THRESHOLDFOR NE DIAGNOSIS. Performed By: #### C MREP ####[place] Oxucsmikwp15[address] [place] [address]Dr. Garima Pulliam CBC AUTO DIFFon 09-13-2022 BASO # 0.0 103/ul Normal 0.0-0.1 [facility] [place] Comment on above: Performed By: #### C BC ####[place] Ms[address]bul[address] [place], [place] [address]Dr. Chapisrenu Pulliam Basophils/100 WBC (Bld) 0.1 % Critically low 0.2-2.0 [facility] [place] Comment on above: Performed By: #### C BC ####[place] [address]tkmsjc[address] [place], [place] [address]Dr. Chapisrenu Pulliam EO # 0.0 103/ul Normal 0.0-0.7 [facility] [place] Comment on above: Performed By: #### C BC ####[place] [address]utc[address] [place], [place] [address]Dr. Chapisrenu Pulliam Eosinophils/100 WBC (Bld) 0.0 % Critically low 0.9-7.0 [facility] [place] Comment on above: Performed By: #### C BC ####[place] [address] [place], [place] [address]Dr. Chapisrenu Pulliam Erythrocyte distribution width (RBC) [Ratio] 13.6 % Normal 11.0-15.0 [facility] Comment on above: Performed By: #### C BC ####[place] [address]xdxcv[address] [place], [place] [address]Dr. Garima Pulliam Hematocrit (Bld) [Volume fraction] 48.2 % Normal 42.0-54.0 [facility] [place] Comment on above: Performed By: #### C BC ####[place] [address]ysbqqo[address] [place], [place] [address]Dr. Chapisrenu Pulliam Hemoglobin (Bld) [Mass/Vol] 16.0 g/dL Normal 14.0-18.0 [facility] [place] Comment on above: Performed By: #### C BC ####[place] K[address] [place], [place] [address]Dr. Garima Pulliam IG # 0.02 10e3/ul Normal 0.00-0.03 [facility] [place] Comment on above: Performed By: #### C BC ####[place] Gegypmjzpn8116 [place] [phone]. Garima Pulliam IG % 0.3 % Normal 0.0-0.5 [facility] Comment on above: Performed By: #### C BC ####[place] Gmmgteogef7207 [place] [phone]. Garima Heraclio LYMPH # 0.5 103/ul Critically low 1.2-3.8 [facility] Comment on above: Performed By: #### C BC ####[place] Swsnjwbdew5469 [place] [phone]. Chapisrenu Pulliam Lymphocytes/100 WBC (Bld) 7.7 % Critically low 20.5-60.0 [facility] Comment on above: Performed By: #### C BC ####[place] Czqacmpgdg8207 [place] [address]Dr. Garima Pulliam MANUAL DIFF REQ NO Normal [facility] Comment on above: Performed By: #### C BC ####[place] Xniikahgss0315 [place] [phone]. Garima Pulliam MCH (RBC) [Entitic mass] 30.6 pg Normal 25.9-34.0 [facility] Comment on above: Performed By: #### C BC ####[place] Ptshazsxqz8072 [place] [phone]. Garima Heraclio MCHC (RBC) [Mass/Vol] 33.2 g/dL Normal 29.9-35.2 [facility] [place] Comment on above: Performed By: #### C BC ####[place] Qwvjscfmvl2043 [place] [phone]. Garima Pulliam MCV (RBC) [Entitic vol] 92.2 fL Normal 80.0-94.0 [facility] [place] Comment on above: Performed By: #### C BC ####[place] [address] [place], [place] [address]Dr. Garima Pulliam MONO # 0.0 103/ul Critically low 0.3-0.8 [facility] Comment on above: Performed By: #### C BC ####[place] Cuxeggaglo9085 [place] [phone]. Garima Pulliam Monocytes/100 WBC (Bld) 0.4 % Critically low 1.7-12.0 [facility] Comment on above: Performed By: #### C BC ####[place] Rxowusuzfr6391 [place] [phone]. Garima Pulliam NEUT # 6.2 103/ul Normal 1.4-6.5 [facility] Comment on above: Performed By: #### C BC ####[place] Phqtgiyxsj4502 [place] [address]Dr. Garima Pulliam Neutrophils/100 WBC (Bld) 91.5 % Critically high 43.0-75.0 [facility] Comment on above: Performed By: #### C BC ####[place] Usibiotsym8988 [place] [address]Dr. Garima Pulliam Platelet mean volume (Bld) [Entitic vol] 8.7 fL Critically low 9.5-13.5 [facility] Comment on above: Performed By: #### C BC ####[place] [address] [place], [place] [address]Dr. Garima Pulliam PLT 179 103/ul Normal 150-450 [facility] Comment on above: Performed By: #### C BC ####[place] Tysshijqjt1561 [place] [phone]. Garima Pulliam RBC 5.23 106/ul Normal 4.70-6.10 [facility] [place] Comment on above: Performed By: #### C BC ####[place] Jijpqiblux3087 [place] [phone]. Garima Pulliam WBC 6.7 103/ul Normal 4.0-11.0 [facility] [place] Comment on above: Performed By: #### C BC ####[place] [address] [place], [place] [address]DrAdalberto Garima Heraclio PROF CHEM 8 (BAS METB)on Anion gap [Moles/Vol] 12.1 mmol/L Normal Th [facility] Comment on above: Performed By: #### B MP ####[place] Lljgclxqlu4942 [place] [address]Dr. Garima Pulliam Calcium [Mass/Vol] 8.7 mg/dL Normal 8.5-10.1 [facility] Comment on above: Performed By: #### B MP ####[place] Ufqadddozv5142 [place] [phone]. Garima Pulliam Chloride [Moles/Vol] 105 mmol/L Normal 98-107 [facility] Comment on above: Performed By: #### B MP ####[place] Njxgitjxjf9490 [place] [address]Dr. Garima Pulliam CO2 [Moles/Vol] 25.5 mmol/L Normal 21.0-32.0 [facility] Comment on above: Performed By: #### B MP ####[place] Uyxsspciki[address] [place], [place] [address]Dr. Garima Pulliam Creatinine [Mass/Vol] 0.63 mg/dL Critically low 0.70-1.30 [facility] Comment on above: Performed By: #### B MP ####[place] Lgydwjxbls8101 [place] [address]Dr. Garima Pulliam EGFR-AF [place] >60 Normal >=60 [facility] Comment on above: Performed By: #### B MP ####[place] Rnhqclslom8280 [place] [address]Dr. Garima Pulliam EGFR-NON AF [place] >60 Normal >=60 [facility] Comment on above: Performed By: #### B MP ####[place] Tcxmsqqzvw0738 [place] [address]Dr. Garima Pulliam Glucose [Mass/Vol] 162 mg/dL Critically high 74-106 [facility] Comment on above: Performed By: #### B MP ####[place] Tucjxdhdac5742 [place] [address]Dr. Garima Pulliam Potassium [Moles/Vol] 3.6 mmol/L Normal 3.5-5.1 [facility] Comment on above: Performed By: #### B MP ####[place] Jljzihexap7844 [place] [phone]. Garima Pulliam Sodium [Moles/Vol] 139 mmol/L Normal 136-145 [facility] Comment on above: Performed By: #### B MP ####[place] Merrbhzuiq1714 [place] [phone]. Garima Heraclio Urea nitrogen [Mass/Vol] 9.0 mg/dL Normal 7.0-18.0 [facility] Comment on above: Performed By: #### B MP ####[place] Jauwsfejff6430 [place] [phone]. Garima Pulliam Urea nitrogen/Creatinine [Mass ratio] 14.3 mg/mg Normal [facility] Comment on above: Performed By: #### B DAVID ####[place] Hswwsldskl4409 [place] [address]Dr. Garima Pulliam CARDIAC NASH ADMITon 022 CK [Catalytic activity/Vol] 304 U/L Normal 39-308 [facility] Comment on above: Performed By: #### B DAVID, NANCY ####[place] Wbyuxbaxnl6877 [place] [phone]. Garima Pulliam CK.MB [Mass/Vol] 11.81 ng/mL Critically high <=3.[address] [facility] Comment on above: Performed By: #### B DAVID, NANCY ####[place] Qoorrgsxvp6186 [place] [address]Dr. Chapisrenu Pulliam HSTROP 13.3 pg/mL Normal 4.0-76.1 [facility] Comment on above: Result Comment: CUT- OFF POINTS HAVE BEEN ESTABLISHED BASED ON THE FOURTH UNIVERSAL DEFINITIONS OF MYOCARDIALINFARCTION. THE UPPER REFERENCE LIMIT (URL) OF TROPONIN, DEFINED THE 99TH PERCENTILE OFcTnI DISTRIBUTION IN A REFERENCE POPULATION, HAS BEEN CONFIRMED THE DECISION THRESHOLDFOR NE DIAGNOSIS. Performed By: #### B DAVID, CMADM ####[place] Ybbpwuallh8495 [place] [address]Dr. Garima Pulliam DORIS 133 ng/mL Critically high 16-96 [facility] Comment on above: Performed By: #### B ERVIN HERNANDEZDM ####[place] Lqhtzmyaqz5552 [place] [phone]. Garima Heraclio CBC AUTO DIFFon 09-12-2022 BASO # 0.0 103/ul Normal 0.0-0.1 [facility] Comment on above: Performed By: #### C BC ####[place] Yoisjuyquh8754 [place] [phone]. Chapisrenu Pulliam Basophils/100 WBC (Bld) 0.2 % Normal 0.2-2.0 [facility] Comment on above: Performed By: #### C BC ####[place] Owfok[address]uxq[address] [place], [place] [address]Dr. Chapisrenu Pulliam EO # 0.2 103/ul Normal 0.0-0.7 [facility] Comment on above: Performed By: #### C BC ####[place] V[address] [place], [place] [address]Dr. Chapisrenu Pulliam Eosinophils/100 WBC (Bld) 1.3 % Normal 0.9-7.0 [facility] Comment on above: Performed By: #### C BC ####[place] Sigmdohmjp[address] [place], [place] [address]Dr. Garima Heraclio Erythrocyte distribution width (RBC) [Ratio] 13.7 % Normal 11.0-15.0 [facility] Comment on above: Performed By: #### C BC ####[place] Z[address]kbea[address] [place], [place] [address]Dr. Garima Heraclio Hematocrit (Bld) [Volume fraction] 46.4 % Normal 42.0-54.0 [facility] Comment on above: Performed By: #### C BC ####[place] [address]ysvul[address] [place], [place] [address]Dr. Chapisrenu Pulliam Hemoglobin (Bld) [Mass/Vol] 15.7 g/dL Normal 14.0-18.0 [facility] [place] Comment on above: Performed By: #### C BC ####[place] Pkdwynikri[address] [place], [place] [address]Dr. Garima Pulliam IG # 0.04 10e3/ul Critically high 0.00-0.03 [facility] Comment on above: Performed By: #### C BC ####[place] Plfawbkbiy9193 [place] [phone] Chapisrenu Pulliam IG % 0.3 % Normal 0.0-0.5 [facility] Comment on above: Performed By: #### C BC ####[place] Hmghstqnwd3855 [place] [phone] Pulliam LYMPH # 1.7 103/ul Normal 1.2-3.8 [facility] Comment on above: Performed By: #### C BC ####[place] Ilfseizyrr4918 [place] [phone] Pulliam Lymphocytes/100 WBC (Bld) 11.5 % Critically low 20.5-60.0 [facility] Comment on above: Performed By: #### C BC ####[place] Qsakkozvjt7617 [place] [address]DrAdalberto Pulliam MANUAL DIFF REQ NO Normal [facility] Comment on above: Performed By: #### C BC ####[place] Maijmkpvxy3463 [place] [phone] Garima Heraclio MCH (RBC) [Entitic mass] 31.0 pg Normal 25.9-34.0 [facility] Comment on above: Performed By: #### C BC ####[place] Dcxehtqimu6601 [place] [phone] Chapisrenu Pulliam MCHC (RBC) [Mass/Vol] 33.8 g/dL Normal 29.9-35.2 [facility] Comment on above: Performed By: #### C BC ####[place] Yenwycxvfu3631 [place] [phone] Chapisrenu Pulliam MCV (RBC) [Entitic vol] 91.7 fL Normal 80.0-94.0 [facility] Comment on above: Performed By: #### C BC ####[place] Ugvlmsxwvi4545 [place] [phone] Pulliam MONO # 0.8 103/ul Normal 0.3-0.8 [facility] [place] Comment on above: Performed By: #### C BC ####[place] Texshezxew7155 [place] [phone]. Garima Pulliam Monocytes/100 WBC (Bld) 5.2 % Normal 1.7-12.0 [facility] [place] Comment on above: Performed By: #### C BC ####[place] Mxieugpgtz0128 [place] [phone]. Garima Pulliam NEUT # 11.7 103/ul Critically high 1.4-6.5 [facility] Comment on above: Performed By: #### C BC ####[place] Ldgwgyahau7437 [place] [address]Dr. Garima Pulliam Neutrophils/100 WBC (Bld) 81.5 % Critically high 43.0-75.0 [facility] Comment on above: Performed By: #### C BC ####[place] Ycrajppdwt5058 [place] [address]Dr. Garima Pulliam Platelet mean volume (Bld) [Entitic vol] 8.6 fL Critically low 9.5-13.5 [facility] [place] Comment on above: Performed By: #### C BC ####[place] [address]xreb[address]ird[address] [place], [place] [address]Dr. Garima Pulliam PLT 191 103/ul Normal 150-450 [facility] [place] Comment on above: Performed By: #### C BC ####[place] Sszxzvwzuj0281 [place] [phone]. Garima Pulliam RBC 5.06 106/ul Normal 4.70-6.10 [facility] [place] Comment on above: Performed By: #### C BC ####[place] Xmufimmuup4951 [place] [phone]. Garima Pulliam WBC 14.4 103/ul Critically high 4.0-11.0 [facility] Comment on above: Performed By: #### C BC ####[place] Lrobgzmfyj5655 [place] [phone]. Garima Pulliam [facility] SARS-CoV-2 (COVID-19) RNA MARIE+probe Ql (Unsp spec) Not detected Normal NOT DETECTED [facility] [place] Comment on above: Result Comment: When diagnostic [...] for this test is supported by the [employer] of Health and Human Service's declaration that [...] be used). Performed By: #### C VDTBH ####[place] Phndwiknuo2612 [place] [address]Dr. Garima Pulliam LACTATE/LACTIC ACIDon 2021 Lactate [Moles/Vol] 1.0 mmol/L Normal 0.4-1.9 [facility] Comment on above: Performed By: #### L ACT ####[place] Yoxzydpnac7407 [place] [address]Dr. Garima Pullima PROF CHEM 8 (BAS METB)on Anion gap [Moles/Vol] 11.6 mmol/L Normal [facility] Comment on above: Performed By: #### B MP, CMADM ####[place] Rgdmiomlgp7042 [place] [address]Dr. Garima Pulliam Calcium [Mass/Vol] 9.2 mg/dL Normal 8.5-10.1 [facility] Comment on above: Performed By: #### B MP, CMADM ####[place] Vhdvybksre3804 [place] [address]Dr. Garima Pulliam Chloride [Moles/Vol] 105 mmol/L Normal 98-107 [facility] Comment on above: Performed By: #### B DAVID, CMADM ####[place] Bunpuldpmd7509 [place] [address]Dr. Garima Pulliam CO2 [Moles/Vol] 25.9 mmol/L Normal 21.0-32.0 [facility] Comment on above: Performed By: #### B DAVID, CMADM ####[place] Ifjkduezaw2720 [place] [address]Dr. Garima Pulliam Creatinine [Mass/Vol] 0.72 mg/dL Normal 0.70-1.30 [facility] Comment on above: Performed By: #### B DAVID, CMADM ####[place] Kprxnfrlba4281 [place] [address]Dr. Garima Pulliam EGFR-AF [place] >60 Normal >=60 [facility] Comment on above: Performed By: #### B DAVID, CMADM ####[place] Jgxmgemsks9625 [place] [address]Dr. Garima Pulliam EGFR-NON AF [place] >60 Normal >=60 [facility] Comment on above: Performed By: #### B DAIVD, CMADM ####[place] Endpqhfuql9454 [place] [address]Dr. Garima Pulliam Glucose [Mass/Vol] 111 mg/dL Critically high 74-106 [facility] Comment on above: Performed By: #### B DAVID, CMADM ####[place] Dtgfbivjjz6961 [place] [address]Dr. Garima Pulliam Potassium [Moles/Vol] 3.5 mmol/L Normal 3.5-5.1 [facility] Comment on above: Performed By: #### B DAVID, CMADM ####[place] Fadjohkfmb4383 [place] [address]Dr. Garima Pulliam Sodium [Moles/Vol] 139 mmol/L Normal 136-145 [facility] Comment on above: Performed By: #### B DAVID, CMADM ####[place] Yohkstpzjo7857 [place] [address]Dr. Garima Pulliam Urea nitrogen [Mass/Vol] 7.0 mg/dL Normal 7.0-18.0 [facility] Comment on above: Performed By: #### B NANCY HERNANDEZ ####[place] Iqqgpullzd8281 [place], [place] [address]Uc. Garima Heraclio Urea nitrogen/Creatinine [Mass ratio] 9.7 mg/mg Normal [facility] [place] Comment on above: Performed By: #### B DAVID, NANCY ####[place] Yxuzwkoocb8275 [place], [place] [address]Xe. Garima Pulliam XR CHEST 1 Von 09-12-2022 XR CHEST 1 V Normal [facility] [place] Encounters Encounter Date Encounter Type Care Provider [...] Facility:H1 Payers Date Payer Category Payer Unknown [id number] 1960 Medicaid [id number] 1960 Unknown [id number] 1960 Unknown [id number] 1955 Unknown [id number] 2.16.84 0.1.086674.3.579.2.593 1954 Unknown [id number] 2.16.84 0.1.471208.3.579.2.593 1954 Unknown [id number] 2.16.84 0.1.757841.3.579.2.593 1954 Unknown [id number] 2.16.84 0.1.967182.3.579.2.593 1954 Unknown [id number] 2.16.84 0.1.491555.3.579.2.593 1954 Unknown [id number] 2.16.84 0.1.439335.3.579.2.593 1954 Unknown [id number] 2.16.84 0.1.995938.3.579.2.593 1954 Unknown [id number] 2.16.84 0.1.973552.3.579.2.593 1954 Unknown [id number] 2.16.84 0.1.636980.3.579.2.593 1954 Unknown [id number] 2.16.84 0.1.192491.3.579.2.593 1954 Unknown [id number] 2.16.84 0.1.564917.3.579.2.593 1954 Unknown [id number] 2.16.84 0.1.740325.3.579.2.593 1954 Unknown [id number] 2.16.84 0.1.561944.3.579.2.593 1954 Unknown [id number] 2.16.84 0.1.597383.3.579.2.593 1954 Unknown [id number] 2.16.84 0.1.279988.3.579.2.593 1954 Unknown [id number] 2.16.84 0.1.878278.3.579.2.593 1954 Unknown [id number] 2.16.84 0.1.349527.3.579.2.593 1954 Unknown [id number] 2.16.84 0.1.187091.3.579.2.593 1954 Unknown [id number] 2.16.84 0.1.453265.3.579.2.593 1954 Unknown [id number] 2.16.84 0.1.884322.3.579.2.593 Summary Purpose Family History No Family History Records Found Advance Directives No Advanced Directives Records Found Additional Source Comments (unrecognized sect ion and content) No Status Records Found INFORMATION SOURCE (unrecogn ized section and content) DATE CREATED AUTHOR 04/08/2023 [facility] FOR RECORDS PERTAINING TO PATIENTS WHO [...] BE BASED ON THE PRIMARY CLINICAL RECORDS. [facility]. provides no warranty or guarantee of the accuracy or completeness of information in this document.
--- NOTE | 2024-01-29 02:49 | ECG_ITS ---
The [facility] Test Date: 2024-01-29 Pat Name: CONSTANZA BARRETO Department: Room: - Gender: Male [employer] Machine: : 1955 Requested By: DOMI RÍOS Order Number: [id number] Reading MD: DOMI RÍOS Measurements Intervals [place] Rate: 73 P: 96 NM: 194 QRS: 71 QRSD: 102 T: 64 QT: 398 QTc: 425 Interpretive Statements 1100 Sinus rhythm 3434 Septal myocardial infarction, age undetermined 9150 abnormal ECG Compared to ECG 01/21/2024 23:33:48 Myocardial infarct finding now present ST (T wave) deviation no longer present Electronically Signed On 01-30-2024 11:00:54 EST by DOMI RÍOS
--- NOTE | 2024-01-29 02:49 | XR_ITS ---
The [address] [address] Patient Name: CONSTANZA BARRETO MRN: [id number] date: 1955 Sex: M Assigned Patient Location: ER Current Patient Location: ER Accession/Order Number: [id number] Exam Date: 01/29/2024 03:40 Report Date: 01/29/2024 04:45 At the request of: MILADIS MARKER Procedure: XR chest 2V EXAM: XR chest 2V HISTORY: SPB, hx COPD COMPARISON: Portable chest 01/05/2024 TECHNIQUE: PA and lateral chest. FINDINGS: Stable bilateral lung hyperinflation. Lungs otherwise clear and expanded. Well-defined pleural margins. Normal heart size and vasculature. Atherosclerotic calcific plaque of the aortic arch. Stable multiple remote healed posterior upper left rib fractures involving left third, fourth, fifth and sixth ribs. There is some question of bridging ossification of fractures between the left fifth and sixth ribs. No acute osseous findings. XR/XR chest 2V IMPRESSION: 1. Stable chest, without acute process. 2. Stable changes of remote left upper chest wall injury with multiple healed fractures. 3. Hyperinflation of lungs consistent with COPD. Electronically authenticated by: TAPAN JIMENEZ Date: 01/29/2024 04:45
[2024-01-29] MEDS: IPRATROPIUM/ALBUTEROL SULFATE 3 ML AMPUL.NEB IH ×4 (03:13→20:00)
[2024-01-29 03:47] LABS: Alanine Aminotransferase 38 U/L (16-63); Albumin Globulin Ratio 1.4; Albumin Level 3.7 g/dL (3.4-5.0); Alkaline Phosphatase 89 U/L (46-116); Aspartate Amino Transferase 16 U/L (15-37); BUN Creatinine Ratio 13.1; Bilirubin Total 0.5 mg/dL (0.2-1.0); Calcium 9.4 mg/dL (8.5-10.1); Carbon Dioxide 29.7 mmol/L (21.0-32.0); Chloride 104 mmol/L (98-107); Estimated GFR (African America >60 (>=60); Estimated GFR (Non-African Ame >60 (>=60); Globulin 2.7 g/dL; Glucose 438 mg/dL (74-106); Potassium 3.7 mmol/L (3.5-5.1); Sodium 139 mmol/L (136-145); Total Protein 6.4 g/dL (6.4-8.2); Troponin I High Sensitivity 14.3 pg/mL (4.0-76.1)
[2024-01-29 04:31] LABS: Basophils Percent Auto 0.1 % (0.2-2.0); Eosinophils Percent Auto 0.2 % (0.9-7.0); Hemoglobin 13.5 g/dL (14.0-18.0); Immature Granulocytes Abs Auto 0.03 10^3/uL (0.00-0.03); Immature Granulocytes Pct Auto 0.3 % (0.0-0.5); Lymphocytes Absolute Auto 1.8 10^3/uL (1.2-3.8); Lymphocytes Percent Auto 17.4 % (20.5-60.0); Mean Corpuscular HGB Conc 32.1 g/dL (29.9-35.2); Mean Corpuscular Volume 93.3 fL (80.0-94.0); Mean Platelet Volume 9.2 fL (9.5-13.5); Monocytes Absolute Auto 0.8 10^3/uL (0.3-0.8); Monocytes Percent Auto 7.5 % (1.7-12.0); Neutrophils Absolute Auto 7.7 10^3/uL (1.4-6.5); Neutrophils Percent Auto 74.5 % (43.0-75.0); Platelet Count 212 10^3/uL (150-450); White Blood Count 10.4 10^3/uL (4.0-11.0)
[2024-01-29] MEDS: INSULIN REGULAR 300 UNITS/3 ML 8 UNIT SUBQ (05:15)
[2024-01-29 06:20] LABS: Glucometer 257 mg/dL (74-106)
--- OUTSIDE RECORDS SUMMARY | 2024-01-29 06:33 | XMS_ITS | CCD ---
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 Garima Pulliam Basophils/100 WBC (Bld) 0.3 % Normal 0.2-2.0 [facility] Comment on above: Performed By: #### C BC ####[facility] Kdgzudflbx5550 [place], [place] [address]SlAdalberto Pulliam EO # 0.3 103/ul Normal 0.0-0.7 [facility] Comment on above: Performed By: #### C BC ####[facility] [address] [place] [address]Dr. Garima Pulliam Eosinophils/100 WBC (Bld) 2.8 % Normal 0.9-7.0 [facility] Comment on above: Performed By: #### C BC ####[facility] Fqnaqbujji[address] [place] [address]Dr. Garima Pulliam Erythrocyte distribution width (RBC) [Ratio] 13.4 % Normal 11.0-15.0 [facility] Comment on above: Performed By: #### C BC ####[facility] [address]ugjnoue[address] [place], [place] [address]Dr. Garima Pulliam Hematocrit (Bld) [Volume fraction] 45.7 % Normal 42.0-54.0 [facility] Comment on above: Performed By: #### C BC ####[facility] Eqrrbutyaa[address] [place], [place] [address]Dr. Garima Pulliam Hemoglobin (Bld) [Mass/Vol] 15.2 g/dL Normal 14.0-18.0 [facility] Comment on above: Performed By: #### C BC ####[facility] [address] [place], [place] [address]Dr. Garima Pulliam IG # 0.02 10e3/ul Normal 0.00-0.03 [facility] Comment on above: Performed By: #### C BC ####[facility] Cuylnbchzi[address] [place], [place] [address]Dr. Garima Pulliam IG % 0.2 % Normal 0.0-0.5 [facility] Comment on above: Performed By: #### C BC ####[facility] Zikqcvggpj[address] [place], [place] [address]Dr. Garima Pulliam LYMPH # 2.1 103/ul Normal 1.2-3.8 [facility] Comment on above: Performed By: #### C BC ####[facility] Bwnyurefne[address] [place], [place] [address]Dr. Garima Pulliam Lymphocytes/100 WBC (Bld) 23.7 % Normal 20.5-60.0 [facility] Comment on above: Performed By: #### C BC ####[facility] Jmwixdjnrf6954 [place] [address]Dr. Garima Pulliam MANUAL DIFF REQ NO Normal [facility] Comment on above: Performed By: #### C BC ####[facility] Oexcqqvyly42[address] [place] [address]Dr. Garima Pulliam MCH (RBC) [Entitic mass] 30.4 pg Normal 25.9-34.0 [facility] Comment on above: Performed By: #### C BC ####[facility] Tzfq[address]wpqi[address] [place], [place] [address]Dr. Garima Pulliam MCHC (RBC) [Mass/Vol] 33.3 g/dL Normal 29.9-35.2 [facility] Comment on above: Performed By: #### C BC ####[facility] Agcgcrblym[address] [place], [place] [address]Dr. Garima Pulliam MCV (RBC) [Entitic vol] 91.4 fL Normal 80.0-94.0 [facility] Comment on above: Performed By: #### C BC ####[facility] Upvlvhfesn[address] [place], [place] [address]Dr. Garima Pulliam MONO # 0.7 103/ul Normal 0.3-0.8 [facility] Comment on above: Performed By: #### C BC ####[facility] Celnlcjzoc50[address] [place], [place] [address]Dr. Chapisrenu Pulliam Monocytes/100 WBC (Bld) 8.3 % Normal 1.7-12.0 [facility] Comment on above: Performed By: #### C BC ####[facility] Lrnprq[address] [place], [place] [address]Dr. Garima Pulliam NEUT # 5.8 103/ul Normal 1.4-6.5 [facility] Comment on above: Performed By: #### C BC ####[facility] Scpmnpusnk[address] [place], [place] [address]Dr. Garima Pulliam Neutrophils/100 WBC (Bld) 64.7 % Normal 43.0-75.0 [facility] Comment on above: Performed By: #### C BC ####[facility] Gbekjukhfd[address] [place] [address]Dr. Garima Pulliam Platelet mean volume (Bld) [Entitic vol] 8.6 fL Critically low 9.5-13.5 [facility] Comment on above: Performed By: #### C BC ####[facility] Rvufiubgwy[address] [place] [address]Dr. Garima Pulliam PLT 230 103/ul Normal 150-450 [facility] Comment on above: Performed By: #### C BC ####[facility] Oermwoasxd6633 [place] [address]Dr. Garima Pulliam RBC 5.00 106/ul Normal 4.70-6.10 [facility] Comment on above: Performed By: #### C BC ####[facility] Psblvguqvf8359 [place] [address]Dr. Garima Pulliam WBC 9.0 103/ul Normal 4.0-11.0 [facility] Comment on above: Performed By: #### C BC ####[facility] Nobejsuqay[address] [place], [place] [address]Dr. Garima Pulliam MAGNESIUMon 04-04-2023 Magnesium [Mass/Vol] 1.8 mg/dL Normal 1.8-2.4 [facility] Comment on above: Performed By: #### M G ####[facility] Xxzykgwimv9[address] [place], [place] [address]Dr. Garima Pulliam PROF 14(COMP METB)on 023 Albumin [Mass/Vol] 3.8 g/dL Normal 3.4-5.0 [facility] Comment on above: Performed By: #### C MP ####[facility] Gtrihhutyq4230[address] [place], [place] [address]Dr. Garima Pulliam Albumin/Globulin [Mass ratio] 1.2 {ratio} Normal [facility] Comment on above: Performed By: #### C MP ####[facility] Uvpsmjwkln[address] [place] [address]Dr. Garima Pulliam ALP [Catalytic activity/Vol] 84 U/L Normal 46-116 [facility] Comment on above: Performed By: #### C MP ####[facility] Oexfwixstr4718 [place] [address]Dr. Garima Pulliam ALT [Catalytic activity/Vol] 31 U/L Normal 16-63 [facility] Comment on above: Performed By: #### C MP ####[facility] Drebsoukbl5348 [place] [address]Dr. Garima Pulliam Anion gap [Moles/Vol] 12.2 mmol/L Normal [facility] Comment on above: Performed By: #### C MP ####[facility] Envydlouzr4491 [place] [address]Dr. Garima Pulliam AST [Catalytic activity/Vol] 23 U/L Normal 15-37 [facility] Comment on above: Performed By: #### C MP ####[facility] Dimkbazgzy9[address] [place], [place] [address]Dr. Garima Pulliam Bilirubin [Mass/Vol] 0.5 mg/dL Normal 0.2-1.0 [facility] Comment on above: Performed By: #### C MP ####[facility] Wdbkqnwlxo[address] [place], [place] [address]Dr. Garima Pulliam Calcium [Mass/Vol] 9.2 mg/dL Normal 8.5-10.1 [facility] Comment on above: Performed By: #### C MP ####[facility] Pxtornjtlb[address] [place], [place] [address]Dr. Garima Pulliam Chloride [Moles/Vol] 103 mmol/L Normal 98-107 [facility] Comment on above: Performed By: #### C MP ####[facility] Jjucjyaoca[address] [place], [place] [address]Dr. Garima Pulliam CO2 [Moles/Vol] 28.5 mmol/L Normal 21.0-32.0 [facility] Comment on above: Performed By: #### C MP ####[facility] Pbylqzxuof[address] [place], [place] [address]Dr. Garima Pulliam Creatinine [Mass/Vol] 0.74 mg/dL Normal 0.70-1.30 [facility] Comment on above: Performed By: #### C MP ####[facility] Lfrtknnuhu4[address] [place] [address]Dr. Garima Pulliam EGFR-AF HAITIAN >60 Normal >=60 [facility] Comment on above: Performed By: #### C MP ####[facility] Mbvzmaklwz33[address] [place] [address]Dr. Garima Pulliam EGFR-NON AF HAITIAN >60 Normal >=60 [facility] Comment on above: Performed By: #### C MP ####[facility] Mgvtgjqacn1531 [place] [address]Dr. Garima Pulliam Globulin (S) [Mass/Vol] 3.1 g/dL Normal [facility] Comment on above: Performed By: #### C MP ####[facility] Aeamhdiowo13[address] [place] [address]Dr. Garima Pulliam Glucose [Mass/Vol] 93 mg/dL Normal 74-106 [facility] Comment on above: Performed By: #### C MP ####[facility] Nydpdnxhog9329 [place] [address]Dr. Garima Pulliam Potassium [Moles/Vol] 3.7 mmol/L Normal 3.5-5.1 [facility] Comment on above: Performed By: #### C MP ####[facility] Pepjnamhgb7340 [place] [address]Dr. Garima Pulliam Protein [Mass/Vol] 6.9 g/dL Normal 6.4-8.2 [facility] Comment on above: Performed By: #### C MP ####[facility] Pzwjklbdar4513 [place] [address]Dr. Garima Pulliam Sodium [Moles/Vol] 140 mmol/L Normal 136-145 [facility] Comment on above: Performed By: #### C MP ####[facility] Tvhsdzoigd3379 [place] [address]Dr. Garima Pulliam Urea nitrogen [Mass/Vol] 8.0 mg/dL Normal 7.0-18.0 [facility] Comment on above: Performed By: #### C MP ####[facility] Cjhvdaogqi2192 [place] [address]Dr. Garima Pulliam Urea nitrogen/Creatinine [Mass ratio] 10.8 mg/mg Normal [facility] Comment on above: Performed By: #### C MP ####[facility] Rfbsppycia[address] [place] [address]Dr. Garima Pulliam AMMONIAon 03-30-2023 Ammonia (P) [Moles/Vol] 11 umol/L Normal 11-32 [facility] Comment on above: Performed By: #### A MM ####[facility] Icumlvugnu[address] [place], [place] [address]Dr. Chapisrenu Pulliam CARDIAC NASH ADMITon 023 CK [Catalytic activity/Vol] 232 U/L Normal 39-308 [facility] Comment on above: Performed By: #### C DAVID, CMADM ####[facility] Kebtbsntan[address] [place], [place] [address]Dr. Chapisrenu Pulliam CK.MB [Mass/Vol] 4.83 ng/mL Critically high <=3.60 [facility] Comment on above: Performed By: #### C DAVID, CMADM ####[facility] Rroaxodsyt26[address] [place], [place] [address]Dr. Garima Pulliam HSTROP 10.5 pg/mL Normal 4.0-76.1 [facility] Comment on above: Result Comment: CUT- OFF POINTS HAVE BEEN ESTABLISHED BASED ON THE FOURTH UNIVERSAL DEFINITIONS OF MYOCARDIALINFARCTION. THE UPPER REFERENCE LIMIT (URL) OF TROPONIN, DEFINED THE 99TH PERCENTILE OFcTnI DISTRIBUTION IN A REFERENCE POPULATION, HAS BEEN CONFIRMED THE DECISION THRESHOLDFOR OK DIAGNOSIS. Performed By: #### C DAVID, CMADM ####[facility] [address]zprrpa[address] [place] [address]Dr. Chapisrenu Pulliam DORIS 79 ng/mL Normal 16-96 [facility] Comment on above: Performed By: #### C DAVID, CMADM ####[facility] Qzvwnwfump[address] [place], [place] [address]Dr. Chapisrenu Pulliam CBC AUTO DIFFon 03-30-2023 BASO # 0.0 103/ul Normal 0.0-0.1 [facility] Comment on above: Performed By: #### C BC ####[facility] Gpvunvohxh9206 [place] [address]Dr. Garima Pulliam Basophils/100 WBC (Bld) 0.1 % Critically low 0.2-2.0 [facility] Comment on above: Performed By: #### C BC ####[facility] Aictwmtyib4[address] [place], [place] [address]Dr. Garima Pulliam EO # 0.3 103/ul Normal 0.0-0.7 [facility] Comment on above: Performed By: #### C BC ####[facility] Ixydptujex8237[address] [place], [place] [address]Dr. Garima Pulliam Eosinophils/100 WBC (Bld) 3.3 % Normal 0.9-7.0 [facility] Comment on above: Performed By: #### C BC ####[facility] Bvryxsqbmn08[address] [place], [place] [address]Dr. Garima Pulliam Erythrocyte distribution width (RBC) [Ratio] 13.5 % Normal 11.0-15.0 [facility] Comment on above: Performed By: #### C BC ####[facility] Vxajumtqni[address] [place], [place] [address]Dr. Garima Pulliam Hematocrit (Bld) [Volume fraction] 42.9 % Normal 42.0-54.0 [facility] Comment on above: Performed By: #### C BC ####[facility] Jcgketgebi7[address] [place], [place] [address]Dr. Garima Pulliam Hemoglobin (Bld) [Mass/Vol] 13.9 g/dL Critically low 14.0-18.0 [facility] Comment on above: Performed By: #### C BC ####[facility] Immqmjuxqs38[address] [place], [place] [address]Dr. Garima Pulliam IG # 0.01 10e3/ul Normal 0.00-0.03 [facility] Comment on above: Performed By: #### C BC ####[facility] Zuz[address]jlw[address] [place], [place] [address]Dr. Garima Pulliam IG % 0.1 % Normal 0.0-0.5 [facility] Comment on above: Performed By: #### C BC ####[facility] Drojovromv4580 [place] [address]Dr. Garima Pulliam LYMPH # 1.7 103/ul Normal 1.2-3.8 [facility] Comment on above: Performed By: #### C BC ####[facility] Mhdjzmyuis8031 [place] [address]Dr. Garima Pulliam Lymphocytes/100 WBC (Bld) 22.8 % Normal 20.5-60.0 [facility] Comment on above: Performed By: #### C BC ####[facility] Cacwtkadtq101[address] [place] [address]Dr. Garima Pulliam MANUAL DIFF REQ NO Normal [facility] Comment on above: Performed By: #### C BC ####[facility] Ejknmlenlf0244 [place] [address]Dr. Garima Pulliam MCH (RBC) [Entitic mass] 30.5 pg Normal 25.9-34.0 [facility] Comment on above: Performed By: #### C BC ####[facility] Qsdkqmloqj7024 [place] [address]Dr. Garima Pulliam MCHC (RBC) [Mass/Vol] 32.4 g/dL Normal 29.9-35.2 [facility] Comment on above: Performed By: #### C BC ####[facility] Mdgdfcbedu7713 [place] [address]Dr. Garima Pulliam MCV (RBC) [Entitic vol] 94.1 fL Critically high 80.0-94.0 [facility] Comment on above: Performed By: #### C BC ####[facility] Pimkzhkwfe17[address] [place] [address]Dr. Garima Pulliam MONO # 0.7 103/ul Normal 0.3-0.8 [facility] Comment on above: Performed By: #### C BC ####[facility] Vehdlvedpi6486 [place] [address]Dr. Garima Pulliam Monocytes/100 WBC (Bld) 8.6 % Normal 1.7-12.0 [facility] Comment on above: Performed By: #### C BC ####[facility] Aytegzdgdd1865 [place] [address]Dr. Garima Pulliam NEUT # 4.9 103/ul Normal 1.4-6.5 [facility] Comment on above: Performed By: #### C BC ####[facility] Nzcchaxybw7984 [place] [address]Dr. Garima Pulliam Neutrophils/100 WBC (Bld) 65.1 % Normal 43.0-75.0 [facility] Comment on above: Performed By: #### C BC ####[facility] Beuniecubi5743 [place] [address]Dr. Garima Pulliam Platelet mean volume (Bld) [Entitic vol] 8.5 fL Critically low 9.5-13.5 [facility] Comment on above: Performed By: #### C BC ####[facility] Wgtubjnnny3052 [place] [address]Dr. Garima Pulliam PLT 219 103/ul Normal 150-450 [facility] Comment on above: Performed By: #### C BC ####[facility] Axzrfskduk9090 [place] [address]Dr. Garima Pulliam RBC 4.56 106/ul Critically low 4.70-6.10 [facility] Comment on above: Performed By: #### C BC ####[facility] Emynpyzyta8686 [place] [address]Dr. Garima Pulliam WBC 7.6 103/ul Normal 4.0-11.0 [facility] Comment on above: Performed By: #### C BC ####[facility] Fmnebikfjr9389 [place] [address]Dr. Garima Pulliam LACTATE/LACTIC ACIDon 2022 Lactate [Moles/Vol] 1.2 mmol/L Normal 0.4-2.0 [facility] Comment on above: Performed By: #### L ACT ####[facility] Dcwdytahvt2471 [place] [address]Dr. Garima Pulliam MAGNESIUMon 03-30-2023 Magnesium [Mass/Vol] 1.8 mg/dL Normal 1.8-2.4 [facility] Comment on above: Performed By: #### M G ####[facility] Mojhzmibgn2989 [place] [address]Dr. Garima Pulliam PROF 14(COMP METB)on 023 Albumin [Mass/Vol] 3.5 g/dL Normal 3.4-5.0 [facility] Comment on above: Performed By: #### C DAVID, NANCY ####[facility] Wftowsjzdl9594 [place] [address]Dr. Garima Pulliam Albumin/Globulin [Mass ratio] 1.2 {ratio} Normal [facility] Comment on above: Performed By: #### C NANCY HERNANDEZ ####[facility] Jvbonnfytj7[address] [place] [address]Dr. Garima Pulliam ALP [Catalytic activity/Vol] 85 U/L Normal 46-116 [facility] Comment on above: Performed By: #### Ethan HERNANDEZ, NANCY ####[facility] Jieymzepdz6599 [place] [address]Dr. Garima Pulliam ALT [Catalytic activity/Vol] 29 U/L Normal 16-63 [facility] Comment on above: Performed By: #### NANCY Long MP ####[facility] Xkscubqzwj9955 [place] [address]Dr. Garima Pulliam Anion gap [Moles/Vol] 8.0 mmol/L Normal [facility] Comment on above: Performed By: #### C DAVID, NANCY ####[facility] Ebejkzzafk1258 [place] [address]Dr. Garima Pulliam AST [Catalytic activity/Vol] 18 U/L Normal 15-37 [facility] Comment on above: Performed By: #### C DAVID, NANCY ####[facility] Aepztebatb5580 [place] [address]Dr. Garima Pulliam Bilirubin [Mass/Vol] 0.4 mg/dL Normal 0.2-1.0 [facility] Comment on above: Performed By: #### NANCY Long MP ####[facility] Scywrajdyh6890 [place] [address]Dr. Garima Pulliam Calcium [Mass/Vol] 8.8 mg/dL Normal 8.5-10.1 [facility] Comment on above: Performed By: #### C DAVID, NANCY ####[facility] Kwnoajygtf4982 [place] [address]Dr. Garima Pulliam Chloride [Moles/Vol] 108 mmol/L Critically high 98-107 [facility] Comment on above: Performed By: #### C DAVID, NANCY ####[facility] Ybaqiurvwp4487 [place] [address]Dr. Garima Pulliam CO2 [Moles/Vol] 29.6 mmol/L Normal 21.0-32.0 [facility] Comment on above: Performed By: #### C DAVID, NANCY ####[facility] Comzaqqhbz9525 [place] [address]Dr. Garima Pulliam Creatinine [Mass/Vol] 0.77 mg/dL Normal 0.70-1.30 [facility] Comment on above: Performed By: #### C DAVID, NANCY ####[facility] Ardkrupmri3764 [place] [address]Dr. Garima Pulliam EGFR-AF HAITIAN >60 Normal >=60 [facility] Comment on above: Performed By: #### C DAVID, NANCY ####[facility] Ofjpszoukj[address] [place] [address]Dr. Garima Pulliam EGFR-NON AF HAITIAN >60 Normal >=60 [facility] Comment on above: Performed By: #### C DAVID, NANCY ####[facility] Whpyufgzwf4932 [place] [address]Dr. Garima Pulliam Globulin (S) [Mass/Vol] 2.8 g/dL Normal [facility] Comment on above: Performed By: #### C DAVID, NANCY ####[facility] Cllhpgolqc2536 [place] [address]Dr. Garima Pulliam Glucose [Mass/Vol] 207 mg/dL Critically high 74-106 [facility] Comment on above: Performed By: #### C DAVID, NANCY ####[facility] Pxedjuoydx5[address] [place] [address]Dr. Garima Pulliam Potassium [Moles/Vol] 4.6 mmol/L Normal 3.5-5.1 [facility] Comment on above: Performed By: #### C DAVID, CMADM ####[facility] Cngarmlkhn6700 [place] [address]Dr. Garima Pulliam Protein [Mass/Vol] 6.3 g/dL Critically low 6.4-8.2 [facility] Comment on above: Performed By: #### C DAVID, CMADM ####[facility] Bqlfysydsh3070 [place] [address]Dr. Garima Pulliam Sodium [Moles/Vol] 141 mmol/L Normal 136-145 [facility] Comment on above: Performed By: #### C DAVID, CMADM ####[facility] Jxfosiwqzp3447 [place] [address]Dr. Chapisrenu Pulliam Urea nitrogen [Mass/Vol] 9.0 mg/dL Normal 7.0-18.0 [facility] Comment on above: Performed By: #### C DAVID, CMADM ####[facility] Sgyfmjazgu8930 [place] [address]Dr. Garima Pulliam Urea nitrogen/Creatinine [Mass ratio] 11.7 mg/mg Normal [facility] Comment on above: Performed By: #### C DAVID, CMADM ####[facility] Vmgymtsnef6769 [place] [address]Dr. Chapisrenu Pulliam XR CHEST 1 Von 03-30-2023 XR CHEST 1 V Normal [facility] BNPon 03-27-2023 Natriuretic peptide B (Bld) [Mass/Vol] 251.0 pg/mL Normal <=900.0 [facility] Comment on above: Performed By: #### C MP, BNP, LIPID ####[facility] Myeucswkdw[address] [place], [place] [address]Dr. Garima Heraclio GLYCOHEMOGLOBIN A1Con 2022 ADA RECOMMENDATION SEE BELOW Normal [facility] Comment on above: Result Comment: ADA RECOMMENDED LIMIT 4.0 - 6.0 ADA THERAPEUTIC TARGET < 7.0 ACTION SUGGESTED > 7.0 Performed By: #### A 1C ####[facility] Onnmjumgxu24[address] [place] [address]Dr. Garima Pulliam Glucose [Mass/Vol] 180 mg/dL Normal [facility] Comment on above: Performed By: #### A 1C ####[facility] Kpgusufefm2853 [place] [address]Dr. Garima Pulliam HbA1c (Bld) [Mass fraction] 7.9 % Critically high 4.5-6.2 [facility] Comment on above: Performed By: #### A 1C ####[facility] Cuqkyznkgl12[address] [place], [place] [address]Dr. Garima Pulliam HEMOGRAM AND PLATELon 2022 Hematocrit (Bld) [Volume fraction] 45.7 % Normal 42.0-54.0 [facility] Comment on above: Performed By: #### H H ####[facility] Scjsduufbj08[address] [place], [place] [address]Dr. Garima Pulliam Hemoglobin (Bld) [Mass/Vol] 15.1 g/dL Normal 14.0-18.0 [facility] Comment on above: Performed By: #### H H ####[facility] Irhrinnmpe4[address] [place], [place] [address]Dr. Garima Pulliam MCH (RBC) [Entitic mass] 30.0 pg Normal 25.9-34.0 [facility] Comment on above: Performed By: #### H H ####[facility] Idphpvpsqg6[address] [place], [place] [address]Dr. aGrima Pulliam MCHC (RBC) [Mass/Vol] 33.0 g/dL Normal 29.9-35.2 [facility] Comment on above: Performed By: #### H H ####[facility] Xjconoccvi[address] [place], [place] [address]Dr. Garima Pulliam MCV (RBC) [Entitic vol] 90.7 fL Normal 80.0-94.0 [facility] Comment on above: Performed By: #### H H ####[facility] Zurusvjavl694[address] [place], [place] [address]Dr. Garima Pulliam PLT 222 103/ul Normal 150-450 [facility] Comment on above: Performed By: #### H H ####[facility] Kiwnvpwsnt6874 [place] [address]Dr. Garima Pulliam RBC 5.04 106/ul Normal 4.70-6.10 [facility] Comment on above: Performed By: #### H H ####[facility] Jyxyfuwamq0622 [place] [address]Dr. Garima Pulliam WBC 8.7 103/ul Normal 4.0-11.0 [facility] Comment on above: Performed By: #### H H ####[facility] Zmjoyjiysz5646 [place] [address]Dr. Garima Pulliam LIPID PROFILEon 03-27-2023 CHOL-HDL RATIO NORM SEE BELOW Normal [facility] Comment on above: Result Comment: 3.3 - 4.4 LOW RISK 4.4 - 7.1 AVERAGE RISK 7.1 - 11.0 MODERATE RISK >11.0 HIGH RISK Performed By: #### C MP, BNP, LIPID ####[facility] Mvvhjiafik1400 [place] [id number]. Garima Pulliam Cholesterol [Mass/Vol] 113 mg/dL Normal <=200 [facility] Comment on above: Performed By: #### C MP, BNP, LIPID ####[facility] Tztzwtxqdp8663 [place] [address]Dr. Garima Pulliam Cholesterol in HDL [Mass/Vol] 51 mg/dL Normal 40-60 [facility] Comment on above: Performed By: #### C MP, BNP, LIPID ####[facility] Xoejedqtxb3862 [place] [address]Dr. Garima Pulliam Cholesterol in LDL [Mass/Vol] 49.8 mg/dL Normal [facility] Comment on above: Performed By: #### C MP, BNP, LIPID ####[facility] System [address] [place] [id number]. Garima Pulliam Cholesterol.total/Cho lesterol in HDL [Mass ratio] 2.2 {ratio} Normal [facility] Comment on above: Performed By: #### C MP, BNP, LIPID ####[facility] [address]tjwinq[address] [place] [address]Dr. Garima Pulliam HDL NORMAL > or = 60 mg/dl - LOW CARDIOVASCULAR RISK <40 mg/dl - HIGH CARDIOVASCULAR RISK Normal [facility] Comment on above: Performed By: #### C MP, BNP, LIPID ####[facility] Wydxshctkh[address] [place] [address]Dr. Garima Pulliam LDL CALC NORMAL SEE BELOW Normal [facility] Comment on above: Result Comment: <100 mg/dl OPTIMAL 100 - 129 mg/dl NEAR OR ABOVE OPTIMAL 130 - 159 mg/dl BORDERLINE HIGH 160 - 189 mg/dl HIGH >190 mg/dl VERY HIGH Performed By: #### C MP, BNP, LIPID ####[facility] Xjofciwovx[address] [place] [address]Dr. Garima Pulliam Triglyceride [Mass/Vol] 61 mg/dL Normal <=150 [facility] Comment on above: Performed By: #### C MP, BNP, LIPID ####[facility] Bvaimpyxot[address] [place] [address]Dr. Garima Pulliam VLDL CALC 12.2 mg/dL Normal [facility] Comment on above: Performed By: #### C MP, BNP, LIPID ####[facility] Zgelyirgci[address] [place] [address]Dr. Garima Pulliam PROF 14(COMP METB)on 023 Albumin [Mass/Vol] 3.5 g/dL Normal 3.4-5.0 [facility] Comment on above: Performed By: #### C MP, BNP, LIPID ####[facility] Nkbzdelahg[address] [place] [address]Dr. Garima Pulliam Albumin/Globulin [Mass ratio] 1.2 {ratio} Normal [facility] Comment on above: Performed By: #### C MP, BNP, LIPID ####[facility] Snbbvpufwf[address] [place] [address]Dr. Garima Pulliam ALP [Catalytic activity/Vol] 82 U/L Normal 46-116 [facility] Comment on above: Performed By: #### C MP, BNP, LIPID ####[facility] Odzvxtrbxm[address] [place] [address]Dr. Garima Pulliam ALT [Catalytic activity/Vol] 33 U/L Normal 16-63 [facility] Comment on above: Performed By: #### C MP, BNP, LIPID ####[facility] Jmmadaaeud60[address] [place] [address]Dr. Garima Pulliam Anion gap [Moles/Vol] 9.9 mmol/L Normal [facility] Comment on above: Performed By: #### C MP, BNP, LIPID ####[facility] Vedazpgcvn28[address] [place] [address]Dr. Garima Pulliam AST [Catalytic activity/Vol] 24 U/L Normal 15-37 [facility] Comment on above: Performed By: #### C MP, BNP, LIPID ####[facility] Qnskfrqivm74[address] [place] [address]Dr. Garima Pulliam Bilirubin [Mass/Vol] 0.6 mg/dL Normal 0.2-1.0 [facility] Comment on above: Performed By: #### C MP, BNP, LIPID ####[facility] Gvebdtitrq24[address] [place] [address]Dr. Garima Pulliam Calcium [Mass/Vol] 9.2 mg/dL Normal 8.5-10.1 [facility] Comment on above: Performed By: #### C MP, BNP, LIPID ####[facility] Izcotbwcgi7336 [place] [address]Dr. Garima Pulliam Chloride [Moles/Vol] 106 mmol/L Normal 98-107 [facility] Comment on above: Performed By: #### C MP, BNP, LIPID ####[facility] Rzskmnqhwe23[address] [place] [address]Dr. Garima Pulliam CO2 [Moles/Vol] 32.3 mmol/L Critically high 21.0-32.0 [facility] Comment on above: Performed By: #### C MP, BNP, LIPID ####[facility] Esidbdoiod24[address] [place] [address]Dr. Garima Pulliam Creatinine [Mass/Vol] 0.70 mg/dL Normal 0.70-1.30 [facility] Comment on above: Performed By: #### C MP, BNP, LIPID ####[facility] Exvcemprgd[address] [place] [address]Dr. Chapisrenu Heraclio EGFR-AF HAITIAN >60 Normal >=60 [facility] Comment on above: Performed By: #### C MP, BNP, LIPID ####[facility] Eiutumdzxq60[address] [place] [address]Dr. Garima Pulliam EGFR-NON AF HAITIAN >60 Normal >=60 [facility] Comment on above: Performed By: #### C MP, BNP, LIPID ####[facility] Hewvvfcuen[address] [place] [address]Dr. Garima Pulliam Globulin (S) [Mass/Vol] 2.9 g/dL Normal [facility] Comment on above: Performed By: #### C MP, BNP, LIPID ####[facility] Lgaxmlfncp5018 [place] [address]Dr. Garima Pulliam Glucose [Mass/Vol] 111 mg/dL Critically high 74-106 [facility] Comment on above: Performed By: #### C MP, BNP, LIPID ####[facility] Lwemxklufu[address] [place], [place] [address]Dr. Garima Pulliam Potassium [Moles/Vol] 4.2 mmol/L Normal 3.5-5.1 [facility] Comment on above: Performed By: #### C MP, BNP, LIPID ####[facility] Eizgetdxws[address] [place], [place] [address]Dr. Garima Pulliam Protein [Mass/Vol] 6.4 g/dL Normal 6.4-8.2 [facility] Comment on above: Performed By: #### C MP, BNP, LIPID ####[facility] Ihcqcsolla34[address] [place], [place] [address]Dr. Garima Pulliam Sodium [Moles/Vol] 144 mmol/L Normal 136-145 [facility] Comment on above: Performed By: #### C MP, BNP, LIPID ####[facility] Umxvvcobvg7[address] [place], [place] [address]Dr. Garima Pulliam Urea nitrogen [Mass/Vol] 7.0 mg/dL Normal 7.0-18.0 [facility] Comment on above: Performed By: #### C MP, BNP, LIPID ####[facility] Bldkojmkbh36[address] [place], [place] [address]Dr. Garima Pulliam Urea nitrogen/Creatinine [Mass ratio] 10.0 mg/mg Normal [facility] Comment on above: Performed By: #### C MP, BNP, LIPID ####[facility] Mqhgodtczy05[address] [place], [place] [address]Dr. Garima Pulliam BNPon 03-22-2023 Natriuretic peptide B (Bld) [Mass/Vol] 103.0 pg/mL Normal <=900.0 [facility] Comment on above: Performed By: #### B PLANNING MANAGER, BMP ####[facility] Jexadsmxsp272[address] [place], [place] [address]Dr. Garima Pulliam CBC AUTO DIFFon 03-22-2023 BASO # 0.0 103/ul Normal 0.0-0.1 [facility] Comment on above: Performed By: #### C BC ####[facility] Acvpdiaipp[address] [place], [place] [address]Dr. Garima Pulliam Basophils/100 WBC (Bld) 0.3 % Normal 0.2-2.0 [facility] Comment on above: Performed By: #### C BC ####[facility] Fnfmubjkrv257[address] [place], [place] [address]Dr. Garima Pulliam EO # 0.2 103/ul Normal 0.0-0.7 [facility] Comment on above: Performed By: #### C BC ####[facility] Jxezxmqpiy6[address] [place], [place] [address]Dr. Garima Pulliam Eosinophils/100 WBC (Bld) 2.2 % Normal 0.9-7.0 [facility] Comment on above: Performed By: #### C BC ####[facility] Vcengysabd6[address] [place], [place] [address]Dr. Garima Pulliam Erythrocyte distribution width (RBC) [Ratio] 13.2 % Normal 11.0-15.0 [facility] Comment on above: Performed By: #### C BC ####[facility] Amorgsrghc[address] [place] [address]Dr. Garima Pulliam Hematocrit (Bld) [Volume fraction] 43.4 % Normal 42.0-54.0 [facility] Comment on above: Performed By: #### C BC ####[facility] Kfvpcrcfdb78[address] [place] [address]Dr. Garima Heraclio Hemoglobin (Bld) [Mass/Vol] 14.3 g/dL Normal 14.0-18.0 [facility] Comment on above: Performed By: #### C BC ####[facility] Rilumyhpkc380[address] [place], [place] [address]Dr. Garima Heraclio IG # 0.02 10e3/ul Normal 0.00-0.03 [facility] Comment on above: Performed By: #### C BC ####[facility] Razeqmnzmr3924[address] [place], [place] [address]Dr. Garima Pulliam IG % 0.3 % Normal 0.0-0.5 [facility] Comment on above: Performed By: #### C BC ####[facility] Clpmqkopuz8[address] [place], [place] [address]Dr. Garima Heraclio LYMPH # 2.0 103/ul Normal 1.2-3.8 [facility] Comment on above: Performed By: #### C BC ####[facility] Ifqrlcmxly166[address] [place], [place] [address]Dr. Chapisrenu Pulliam Lymphocytes/100 WBC (Bld) 24.8 % Normal 20.5-60.0 [facility] Comment on above: Performed By: #### C BC ####[facility] Ejztlkqsae357[address] [place], [place] [address]Dr. Chapisrenu Pulliam MANUAL DIFF REQ NO Normal [facility] Comment on above: Performed By: #### C BC ####[facility] Bsfyaujtpp01[address] [place], [place] [address]Dr. Garima Pulliam MCH (RBC) [Entitic mass] 30.0 pg Normal 25.9-34.0 [facility] Comment on above: Performed By: #### C BC ####[facility] Bggddxrkuz450[address] [place] [id number]. Garima Heraclio MCHC (RBC) [Mass/Vol] 32.9 g/dL Normal 29.9-35.2 [facility] Comment on above: Performed By: #### C BC ####[facility] Rmlavrcayx2587 [place] [address]Dr. Garima Pulliam MCV (RBC) [Entitic vol] 91.0 fL Normal 80.0-94.0 [facility] Comment on above: Performed By: #### C BC ####[facility] Pbdhshzebu[address] [place], [place] [address]Dr. Garima Pulliam MONO # 0.8 103/ul Normal 0.3-0.8 [facility] Comment on above: Performed By: #### C BC ####[facility] Fyqydgiovm[address] [place], [place] [address]Dr. Garima Pulliam Monocytes/100 WBC (Bld) 9.7 % Normal 1.7-12.0 [facility] Comment on above: Performed By: #### C BC ####[facility] Hbuvykxnud[address] [place], [place] [address]Dr. Garima Pulliam NEUT # 4.9 103/ul Normal 1.4-6.5 [facility] Comment on above: Performed By: #### C BC ####[facility] Kalcwgkpdo817[address] [place], [place] [address]Dr. Garima Pulliam Neutrophils/100 WBC (Bld) 62.7 % Normal 43.0-75.0 [facility] Comment on above: Performed By: #### C BC ####[facility] Oyfwwedsvo[address] [place], [place] [address]Dr. Garima Pulliam Platelet mean volume (Bld) [Entitic vol] 8.8 fL Critically low 9.5-13.5 [facility] Comment on above: Performed By: #### C BC ####[facility] Loivssjpjx[address] [place], [place] [address]Dr. Garima Pulliam PLT 198 103/ul Normal 150-450 [facility] Comment on above: Performed By: #### C BC ####[facility] Qulczeacry3563 [place] [address]Dr. Chapisrenu Pulliam RBC 4.77 106/ul Normal 4.70-6.10 [facility] Comment on above: Performed By: #### C BC ####[facility] Hoacnvbcxx3138 [place] [address]Dr. Garima Pulliam WBC 7.9 103/ul Normal 4.0-11.0 [facility] Comment on above: Performed By: #### C BC ####[facility] Bkjekpeinv30[address] [place] [address]Dr. Garima Pulliam D-DIMERon 03-22-2023 D-DIMER 0.85 mg/L FEU Critically high <=0.59 [facility] Comment on above: Performed By: #### D DIM ####[facility] Glbjjtoxdt[address] [place], [place] [address]Dr. Garima Pulliam D-DIMER COMMENTS SEE BELOW Normal [facility] Comment on above: [...] generalized hospitalization. Performed By: #### D DIM ####[facility] Prnkfphtht[address] [place] [address]Dr. Garima Pulliam PROF CHEM 8 (BAS METB)on Anion gap [Moles/Vol] 6.9 mmol/L Normal [facility] Comment on above: Performed By: #### B PLANNING MANAGER, BMP ####[facility] Jhxadaxznr0474 [place] [address]Dr. Garima Pulliam Calcium [Mass/Vol] 8.9 mg/dL Normal 8.5-10.1 [facility] Comment on above: Performed By: #### B PLANNING MANAGER, BMP ####[facility] Mdcmulouxp9301 [place] [id number]. Garima Pulliam Chloride [Moles/Vol] 101 mmol/L Normal 98-107 [facility] Comment on above: Performed By: #### B PLANNING MANAGER, BMP ####[facility] Lpdcskskid1211 [place] [address]Dr. Garima Pulliam CO2 [Moles/Vol] 30.7 mmol/L Normal 21.0-32.0 [facility] Comment on above: Performed By: #### B PLANNING MANAGER, BMP ####[facility] Rlmvtqpsas9886 [place] [address]Dr. Garima Pulliam Creatinine [Mass/Vol] 0.82 mg/dL Normal 0.70-1.30 [facility] Comment on above: Performed By: #### B PLANNING MANAGER, BMP ####[facility] Cwmijbbkam14[address] [place] [address]Dr. Garima Pulliam EGFR-AF HAITIAN >60 Normal >=60 [facility] Comment on above: Performed By: #### B PLANNING MANAGER, BMP ####[facility] Emtqabijta[address]86 [place] [address]Dr. Garima Pulliam EGFR-NON AF HAITIAN >60 Normal >=60 [facility] Comment on above: Performed By: #### B PLANNING MANAGER, BMP ####[facility] Mgqavsiiaw06[address] [place], [place] [address]Dr. Garima Pulliam Glucose [Mass/Vol] 339 mg/dL Critically high 74-106 [facility] Comment on above: Performed By: #### B PLANNING MANAGER, BMP ####[facility] Cnboiwdnrz6523 [place] [address]Dr. Garima Pulliam Potassium [Moles/Vol] 3.6 mmol/L Normal 3.5-5.1 [facility] Comment on above: Performed By: #### B PLANNING MANAGER, BMP ####[facility] Bbdfzoawss0604 [place] [address]Dr. Garima Pulliam Sodium [Moles/Vol] 135 mmol/L Critically low 136-145 [facility] Comment on above: Performed By: #### B PLANNING MANAGER, BMP ####[facility] Mgkqicmuds5656 [place] [address]Dr. Garima Pulliam Urea nitrogen [Mass/Vol] 11.0 mg/dL Normal 7.0-18.0 [facility] Comment on above: Performed By: #### B PLANNING MANAGER, BMP ####[facility] Ypqhtkibru0392 [place] [id number]. Garima Pulliam Urea nitrogen/Creatinine [Mass ratio] 13.4 mg/mg Normal [facility] Comment on above: Performed By: #### B PLANNING MANAGER, BMP ####[facility] Adlouyvpoh9[address] [place], [place] [address]Dr. Garima Pulliam US VERONICA DOP LEG BILon 023 US VERONICA DOP LEG BENOIT Normal [facility] BNPon 03-18-2023 Natriuretic peptide B (Bld) [Mass/Vol] 226.0 pg/mL Normal <=900.0 [facility] Comment on above: Performed By: #### B PLANNING MANAGER, BMP ####[facility] Kasbtswcui74[address] [place], [place] [address]Dr. Garima Pulliam CBC AUTO DIFFon 03-18-2023 BASO # 0.0 103/ul Normal 0.0-0.1 [facility] Comment on above: Performed By: #### C BC ####[facility] Yblitvumxm9[address] [place], [place] [address]Dr. Garima Heraclio Basophils/100 WBC (Bld) 0.2 % Normal 0.2-2.0 [facility] Comment on above: Performed By: #### C BC ####[facility] Ugmrdwgesw3[address] [place], [place] [address]Dr. Garima Pulliam EO # 0.3 103/ul Normal 0.0-0.7 [facility] Comment on above: Performed By: #### C BC ####[facility] Ixweyuwyhy4616[address] [place], [place] [address]Dr. Garima Heraclio Eosinophils/100 WBC (Bld) 2.5 % Normal 0.9-7.0 [facility] Comment on above: Performed By: #### C BC ####[facility] Iibdanpkeq5280[address] [place], [place] [address]Dr. Garima Pulliam Erythrocyte distribution width (RBC) [Ratio] 13.2 % Normal 11.0-15.0 [facility] Comment on above: Performed By: #### C BC ####[facility] Ifxofkwljz7990 [place] [address]Dr. Garima Pulliam Hematocrit (Bld) [Volume fraction] 45.8 % Normal 42.0-54.0 [facility] Comment on above: Performed By: #### C BC ####[facility] Eiyxwdyusu0549 [place] [address]Dr. Garima Pulliam Hemoglobin (Bld) [Mass/Vol] 15.3 g/dL Normal 14.0-18.0 [facility] Comment on above: Performed By: #### C BC ####[facility] Kkamejonsh36[address] [place], [place] [address]Dr. Garima Heraclio IG # 0.02 10e3/ul Normal 0.00-0.03 [facility] Comment on above: Performed By: #### C BC ####[facility] Wkgywvlsfq430[address] [place], [place] [address]Dr. Garima Pulliam IG % 0.2 % Normal 0.0-0.5 [facility] Comment on above: Performed By: #### C BC ####[facility] Autfyyivnf[address] [place], [place] [address]Dr. Garima Heraclio LYMPH # 1.8 103/ul Normal 1.2-3.8 [facility] Comment on above: Performed By: #### C BC ####[facility] Yptilqlgtt4830[address] [place], [place] [address]Dr. Chapisrenu Pulliam Lymphocytes/100 WBC (Bld) 18.3 % Critically low 20.5-60.0 [facility] Comment on above: Performed By: #### C BC ####[facility] Tzwhtsgzye9[address] [place], [place] [address]Dr. Chapisrenu Pulliam MANUAL DIFF REQ NO Normal [facility] Comment on above: Performed By: #### C BC ####[facility] Qppkqiejiy085[address] [place], [place] [address]Dr. Garima Pulliam MCH (RBC) [Entitic mass] 30.5 pg Normal 25.9-34.0 [facility] Comment on above: Performed By: #### C BC ####[facility] Avqnqivxpm0212 [place] [id number]. Garima Pulliam MCHC (RBC) [Mass/Vol] 33.4 g/dL Normal 29.9-35.2 [facility] Comment on above: Performed By: #### C BC ####[facility] Rpfjycsoyh2477 [place] [address]Dr. Garima Pulliam MCV (RBC) [Entitic vol] 91.2 fL Normal 80.0-94.0 [facility] Comment on above: Performed By: #### C BC ####[facility] Nqflnqbuli[address] [place], [place] [address]DrAdalberto Garima Heraclio MONO # 0.8 103/ul Normal 0.3-0.8 [facility] Comment on above: Performed By: #### C BC ####[facility] Ktbsrtgyeu0929[address] [place], [place] [address]Dr. Garima Heraclio Monocytes/100 WBC (Bld) 7.6 % Normal 1.7-12.0 [facility] Comment on above: Performed By: #### C BC ####[facility] Rsxvupsquc9418[address] [place], [place] [address]Dr. Garima Pulliam NEUT # 7.0 103/ul Critically high 1.4-6.5 [facility] Comment on above: Performed By: #### C BC ####[facility] Vqaoasukwg7[address] [place], [place] [address]DrAdalberto Garima Heraclio Neutrophils/100 WBC (Bld) 71.2 % Normal 43.0-75.0 [facility] Comment on above: Performed By: #### C BC ####[facility] Alsbuxxqmd6[address] [place], [place] [address]Dr. Garima Pulliam Platelet mean volume (Bld) [Entitic vol] 8.9 fL Critically low 9.5-13.5 [facility] Comment on above: Performed By: #### C BC ####[facility] Cwzunvtwxg5157 [place] [address]Dr. Garima Pulliam PLT 217 103/ul Normal 150-450 [facility] Comment on above: Performed By: #### C BC ####[facility] Mcueylpebs4[address] [place], [place] [address]Dr. Garima Pulliam RBC 5.02 106/ul Normal 4.70-6.10 [facility] Comment on above: Performed By: #### C BC ####[facility] Ycewsbupgg[address] [place], [place] [address]Dr. Garima Pulliam WBC 9.8 103/ul Normal 4.0-11.0 [facility] Comment on above: Performed By: #### C BC ####[facility] Cksrkgknqb9[address] [place], [place] [address]Dr. Garima Heraclio CRPon 03-18-2023 CRP 0.1 mg/dL Normal <=1.0 [facility] Comment on above: Performed By: #### C RP ####[facility] Pslblyyvnr[address] [place], [place] [address]Dr. Garima Heraclio PROF CHEM 8 (BAS METB)on Anion gap [Moles/Vol] 10.4 mmol/L Normal [facility] Comment on above: Performed By: #### B PLANNING MANAGER, BMP ####[facility] Rnuoxbuqlp26[address] [place], [place] [address]Dr. Garima Heraclio Calcium [Mass/Vol] 8.8 mg/dL Normal 8.5-10.1 [facility] Comment on above: Performed By: #### B PLANNING MANAGER, BMP ####[facility] Ofpmewfauj70[address] [place] [address]Dr. Garima Pulliam Chloride [Moles/Vol] 97 mmol/L Critically low 98-107 [facility] Comment on above: Performed By: #### B PLANNING MANAGER, BMP ####[facility] Zzhghapdvz4972 [place] [address]Dr. Garima Pulliam CO2 [Moles/Vol] 31.2 mmol/L Normal 21.0-32.0 [facility] Comment on above: Performed By: #### B PLANNING MANAGER, BMP ####[facility] Lvdhcqbold7421 [place] [id number]. Garima Pulliam Creatinine [Mass/Vol] 0.91 mg/dL Normal 0.70-1.30 [facility] Comment on above: Performed By: #### B PLANNING MANAGER, BMP ####[facility] Oadgfinlmc6912 [place] [address]Dr. Garima Pulliam EGFR-AF HAITIAN >60 Normal >=60 [facility] Comment on above: Performed By: #### B PLANNING MANAGER, BMP ####[facility] Loezahwzjx1910 [place] [address]Dr. Garima Pulliam EGFR-NON AF HAITIAN >60 Normal >=60 [facility] Comment on above: Performed By: #### B PLANNING MANAGER, BMP ####[facility] Lfrlzhlhlw[address] [place], [place] [address]Dr. Garima Pulliam Glucose [Mass/Vol] 315 mg/dL Critically high 74-106 T [facility] Comment on above: Performed By: #### B PLANNING MANAGER, BMP ####[facility] Snujimylon[address] [place], [place] [address]Dr. Garima Pulliam Potassium [Moles/Vol] 3.6 mmol/L Normal 3.5-5.1 [facility] Comment on above: Performed By: #### B PLANNING MANAGER, BMP ####[facility] Simomkhvnp[address] [place], [place] [address]Dr. Garima Pulliam Sodium [Moles/Vol] 135 mmol/L Critically low 136-145 Th [facility] Comment on above: Performed By: #### B PLANNING MANAGER, BMP ####[facility] Ydbyvughcp[address] [place], [place] [address]Dr. Garima Pulliam Urea nitrogen [Mass/Vol] 7.0 mg/dL Normal 7.0-18.0 [facility] Comment on above: Performed By: #### B PLANNING MANAGER, BMP ####[facility] Ithncqnflv[address] [place], [place] [address]Dr. Garima Pulliam Urea nitrogen/Creatinine [Mass ratio] 7.7 mg/mg Normal [facility] Comment on above: Performed By: #### B PLANNING MANAGER, BMP ####[facility] Zwduaczqsc[address] [place], [place] [address]Dr. Garima Pulliam SED RATE WESTERGRENon 2022 SED RATE 8 mm/hr Normal <=20 [facility] Comment on above: Performed By: #### S EDR ####[facility] Iorfcgycrq398[address] [place], [place] [address]Dr. Garima Pulliam BNPon 03-16-2023 Natriuretic peptide B (Bld) [Mass/Vol] 241.0 pg/mL Normal <=900.0 [facility] Comment on above: Performed By: #### B PLANNING MANAGER, BMP, HSTROPN ####[facility] Jypjnumefg187[address] [place], [place] [address]Dr. Garima Heraclio CBC AUTO DIFFon 03-16-2023 BASO # 0.0 103/ul Normal 0.0-0.1 [facility] Comment on above: Performed By: #### C BC ####[facility] Xpfmefhddi12[address] [place], [place] [address]Dr. Garima Heraclio Basophils/100 WBC (Bld) 0.2 % Normal 0.2-2.0 [facility] Comment on above: Performed By: #### C BC ####[facility] Ahnhytivag[address] [place], [place] [address]Dr. Chapisrenu Heraclio EO # 0.2 103/ul Normal 0.0-0.7 [facility] Comment on above: Performed By: #### C BC ####[facility] Pcmdxyoiup412[address] [place], [place] [address]Dr. Garima Heraclio Eosinophils/100 WBC (Bld) 2.7 % Normal 0.9-7.0 [facility] Comment on above: Performed By: #### C BC ####[facility] Znomqzzysj9[address] [place], [place] [address]Dr. Garima Heraclio Erythrocyte distribution width (RBC) [Ratio] 13.1 % Normal 11.0-15.0 [facility] Comment on above: Performed By: #### C BC ####[facility] Dthdocfdup88[address] [place], [place] [address]Dr. Garima Heraclio Hematocrit (Bld) [Volume fraction] 41.8 % Critically low 42.0-54.0 [facility] Comment on above: Performed By: #### C BC ####[facility] Jgpaoslcgq1442 [place] [address]DrAdalberto Garima Pulliam Hemoglobin (Bld) [Mass/Vol] 14.0 g/dL Normal 14.0-18.0 [facility] Comment on above: Performed By: #### C BC ####[facility] Dspkhhjgjm6771 [place] [address]DrAdalberto Pulliam IG # 0.03 10e3/ul Normal 0.00-0.03 [facility] Comment on above: Performed By: #### C BC ####[facility] [address]jpfvlobu[address] [place] [id number] Chapisrenu Pulliam IG % 0.3 % Normal 0.0-0.5 [facility] Comment on above: Performed By: #### C BC ####[facility] Wgenuunklj[address] [place], [place] [address]DrAdalberto Chapisrenu Pulliam LYMPH # 2.1 103/ul Normal 1.2-3.8 [facility] Comment on above: Performed By: #### C BC ####[facility] Yjnxmqtjod[address] [place], [place] [address]DrAdalberto Chapisrenu Pulliam Lymphocytes/100 WBC (Bld) 24.2 % Normal 20.5-60.0 [facility] Comment on above: Performed By: #### C BC ####[facility] Jprajkoxay[address] [place], [place] [address]DrAdalberto Pulliam MANUAL DIFF REQ NO Normal [facility] Comment on above: Performed By: #### C BC ####[facility] Fjgbmhwhzn37[address] [place], [place] [address]DrAdalberto Pulliam MCH (RBC) [Entitic mass] 30.2 pg Normal 25.9-34.0 [facility] Comment on above: Performed By: #### C BC ####[facility] Ilhuxmfvny[address] [place], [place] [address]DrAdalberto Pulliam MCHC (RBC) [Mass/Vol] 33.5 g/dL Normal 29.9-35.2 [facility] Comment on above: Performed By: #### C BC ####[facility] Merzhftvjt4950[address] [place], [place] [address]DrAdalberto Pulliam MCV (RBC) [Entitic vol] 90.1 fL Normal 80.0-94.0 [facility] Comment on above: Performed By: #### C BC ####[facility] Ybdwedkaqr6397[address] [place], [place] [address]DrAdalberto Pulliam MONO # 0.6 103/ul Normal 0.3-0.8 [facility] Comment on above: Performed By: #### C BC ####[facility] Aoewvhynyb0570[address] [place], [place] [address]DrAdalberto Pulliam Monocytes/100 WBC (Bld) 7.4 % Normal 1.7-12.0 [facility] Comment on above: Performed By: #### C BC ####[facility] Ipwxeylctn4574[address] [place], [place] [address]DrAdalberto Pulliam NEUT # 5.6 103/ul Normal 1.4-6.5 [facility] Comment on above: Performed By: #### C BC ####[facility] Cpcovyurks0655[address] [place], [place] [address]DrAdalberto Pulliam Neutrophils/100 WBC (Bld) 65.2 % Normal 43.0-75.0 [facility] Comment on above: Performed By: #### C BC ####[facility] Xwtjfkypvx2784[address] [place], [place] [address]DrAdalberto Pulliam Platelet mean volume (Bld) [Entitic vol] 8.7 fL Critically low 9.5-13.5 [facility] Comment on above: Performed By: #### C BC ####[facility] Oybtgimzha5313[address] [place], [place] [address]DrAdalberto Pulliam PLT 195 103/ul Normal 150-450 [facility] Comment on above: Performed By: #### C BC ####[facility] Tyjarzeqes8397[address] [place], [place] [address]DrAdalberto Pulliam RBC 4.64 106/ul Critically low 4.70-6.10 [facility] Comment on above: Performed By: #### C BC ####[facility] Ldzaiuaigy4204[address] [place], [place] [address]Dr. Chapisrenu Pulliam WBC 8.6 103/ul Normal 4.0-11.0 [facility] Comment on above: Performed By: #### C BC ####[facility] Ubwkftfbim1289[address] [place], [place] [address]Dr. Garima Pulliam PROF CHEM 8 (BAS METB)on Anion gap [Moles/Vol] 6.7 mmol/L Normal [facility] Comment on above: Performed By: #### B PLANNING MANAGER, BMP, HSTROPN ####[facility] Uztjbtrkuz9234[address] [place], [place] [address]Dr. Garima Pulliam Calcium [Mass/Vol] 8.8 mg/dL Normal 8.5-10.1 [facility] Comment on above: Performed By: #### B PLANNING MANAGER, BMP, HSTROPN ####[facility] Ixulethhcw9894[address] [place], [place] [address]Dr. Garima Pulliam Chloride [Moles/Vol] 106 mmol/L Normal 98-107 [facility] Comment on above: Performed By: #### B PLANNING MANAGER, BMP, HSTROPN ####[facility] Cuyycpaqyf4110[address] [place], [place] [address]Dr. Garima Pulliam CO2 [Moles/Vol] 31.4 mmol/L Normal 21.0-32.0 [facility] Comment on above: Performed By: #### B PLANNING MANAGER, BMP, HSTROPN ####[facility] Dgajlfwmxn3413[address] [place], [place] [address]Dr. Garima Pulliam Creatinine [Mass/Vol] 0.75 mg/dL Normal 0.70-1.30 [facility] Comment on above: Performed By: #### B PLANNING MANAGER, BMP, HSTROPN ####[facility] Twersycrcj385[address] [place], [place] [address]Dr. Garima Pulliam EGFR-AF HAITIAN >60 Normal >=60 [facility] Comment on above: Performed By: #### B PLANNING MANAGER, BMP, HSTROPN ####[facility] Nfgsbrwjyl09[address] [place] [address]Dr. Garima Pulliam EGFR-NON AF HAITIAN >60 Normal >=60 [facility] Comment on above: Performed By: #### B PLANNING MANAGER, BMP, HSTROPN ####[facility] Bvyykhtajz0321 [place] [address]Dr. Garima Pulliam Glucose [Mass/Vol] 161 mg/dL Critically high 74-106 T [facility] Comment on above: Performed By: #### B PLANNING MANAGER, BMP, HSTROPN ####[facility] Ivyybgoanc7267 [place] [address]Dr. Garima Pulliam Potassium [Moles/Vol] 4.1 mmol/L Normal 3.5-5.1 [facility] Comment on above: Performed By: #### B PLANNING MANAGER, BMP, HSTROPN ####[facility] Qkqqbsqgpw0035 [place] [address]Dr. Garima Pulliam Sodium [Moles/Vol] 140 mmol/L Normal 136-145 [facility] Comment on above: Performed By: #### B PLANNING MANAGER, BMP, HSTROPN ####[facility] Oncyofzpkh6531 [place] [address]Dr. Garima Pulliam Urea nitrogen [Mass/Vol] 7.0 mg/dL Normal 7.0-18.0 [facility] Comment on above: Performed By: #### B PLANNING MANAGER, BMP, HSTROPN ####[facility] Vjzstenjlm4261 [place] [address]Dr. Garima Pulliam Urea nitrogen/Creatinine [Mass ratio] 9.3 mg/mg Normal [facility] Comment on above: Performed By: #### B PLANNING MANAGER, BMP, HSTROPN ####[facility] Xeslnyvgds7570[address] [place], [place] [address]Dr. Garima Pulliam TROPONIN, HIGH SENSITIVITYon 03-16-2023 HSTROP 9.7 pg/mL Normal 4.0-76.1 [facility] Comment on above: Result Comment: CUT- OFF POINTS HAVE BEEN ESTABLISHED BASED ON THE FOURTH UNIVERSAL DEFINITIONS OF MYOCARDIALINFARCTION. THE UPPER REFERENCE LIMIT (URL) OF TROPONIN, DEFINED THE 99TH PERCENTILE OFcTnI DISTRIBUTION IN A REFERENCE POPULATION, HAS BEEN CONFIRMED THE DECISION THRESHOLDFOR OK DIAGNOSIS. Performed By: #### B PLANNING MANAGER, BMP, HSTROPN ####[facility] Rbgrkqkicb6497 [place] [address]Dr. Garima Pulliam XR CHEST 1 Von 03-16-2023 XR CHEST 1 V Normal [facility] BNPon 03-06-2023 Natriuretic peptide B (Bld) [Mass/Vol] 111.0 pg/mL Normal <=900.0 [facility] Comment on above: Performed By: #### C MP, BNP, CK ####[facility] Jsfnvftovx7558[address] [place], [place] [address]Dr. Garima Pulliam CBC AUTO DIFFon 03-06-2023 BASO # 0.0 103/ul Normal 0.0-0.1 [facility] Comment on above: Performed By: #### C BC ####[facility] Bmedmasiwl439[address] [place], [place] [address]Dr. Garima Heraclio Basophils/100 WBC (Bld) 0.2 % Normal 0.2-2.0 [facility] Comment on above: Performed By: #### C BC ####[facility] Juuiklvjuw7190[address] [place], [place] [address]Dr. Garima Pulliam EO # 0.3 103/ul Normal 0.0-0.7 [facility] Comment on above: Performed By: #### C BC ####[facility] Jcngwclipk9160[address] [place], [place] [address]Dr. Garima Heraclio Eosinophils/100 WBC (Bld) 3.5 % Normal 0.9-7.0 [facility] Comment on above: Performed By: #### C BC ####[facility] Ptemstxnwk1480[address] [place], [place] [address]Dr. Garima Pulliam Erythrocyte distribution width (RBC) [Ratio] 13.3 % Normal 11.0-15.0 [facility] Comment on above: Performed By: #### C BC ####[facility] Nzutljcute494[address] [place], [place] [address]Dr. Garima Pulliam Hematocrit (Bld) [Volume fraction] 43.7 % Normal 42.0-54.0 [facility] Comment on above: Performed By: #### C BC ####[facility] Jtgmlmqsrv7481 [place] [address]Dr. Garima Pulliam Hemoglobin (Bld) [Mass/Vol] 14.7 g/dL Normal 14.0-18.0 [facility] Comment on above: Performed By: #### C BC ####[facility] Jamdcxokpv2937 [place] [address]Dr. Garima Pulliam IG # 0.03 10e3/ul Normal 0.00-0.03 [facility] Comment on above: Performed By: #### C BC ####[facility] Gsstrqbfwo4475 [place] [address]Dr. Garima Pulliam IG % 0.4 % Normal 0.0-0.5 [facility] Comment on above: Performed By: #### C BC ####[facility] Uegkducyot488[address] [place], [place] [address]Dr. Garima Pulliam LYMPH # 2.0 103/ul Normal 1.2-3.8 [facility] Comment on above: Performed By: #### C BC ####[facility] Hedpovnyvc4516[address] [place], [place] [address]Dr. Garima Pulliam Lymphocytes/100 WBC (Bld) 23.7 % Normal 20.5-60.0 [facility] Comment on above: Performed By: #### C BC ####[facility] Xeowegpwbf5095[address] [place], [place] [address]Dr. Garima Pulliam MANUAL DIFF REQ NO Normal [facility] Comment on above: Performed By: #### C BC ####[facility] Kcbcagdfqg9986 [place] [address]Dr. Garima Pulliam MCH (RBC) [Entitic mass] 30.1 pg Normal 25.9-34.0 [facility] Comment on above: Performed By: #### C BC ####[facility] Ebqrtivrsq266745 [address] [place], [place] [address]Dr. Garima Pulliam MCHC (RBC) [Mass/Vol] 33.6 g/dL Normal 29.9-35.2 [facility] Comment on above: Performed By: #### C BC ####[facility] Gyseqsxvgh6637 [place] [address]DrAdalberto Pulliam MCV (RBC) [Entitic vol] 89.4 fL Normal 80.0-94.0 [facility] Comment on above: Performed By: #### C BC ####[facility] Jlmpokdaoc5479[address] [place], [place] [address]DrAdalberto Pulliam MONO # 0.8 103/ul Normal 0.3-0.8 [facility] Comment on above: Performed By: #### C BC ####[facility] Xeeavkxuod2937[address] [place], [place] [address]DrAdalberto Pulliam Monocytes/100 WBC (Bld) 9.0 % Normal 1.7-12.0 [facility] Comment on above: Performed By: #### C BC ####[facility] Wzjmylniuz8907[address] [place], [place] [address]Dr. Garima Pulliam NEUT # 5.4 103/ul Normal 1.4-6.5 [facility] Comment on above: Performed By: #### C BC ####[facility] Tkgxgisjso4933[address] [place], [place] [address]DrAdlaberto Pulliam Neutrophils/100 WBC (Bld) 63.2 % Normal 43.0-75.0 [facility] Comment on above: Performed By: #### C BC ####[facility] Firivogjln6208[address] [place], [place] [address]DrAdalberto Pulliam Platelet mean volume (Bld) [Entitic vol] 9.0 fL Critically low 9.5-13.5 [facility] Comment on above: Performed By: #### C BC ####[facility] Xzjzqjvbix[address] [place], [place] [address]DrAdalberto Pulliam PLT 218 103/ul Normal 150-450 [facility] Comment on above: Performed By: #### C BC ####[facility] Takowegrqa1918[address] [place], [place] [address]DrAdalberto Pulliam RBC 4.89 106/ul Normal 4.70-6.10 [facility] Comment on above: Performed By: #### C BC ####[facility] Loabtkfsce1873 [place] [address]Dr. Garima Pulliam WBC 8.5 103/ul Normal 4.0-11.0 [facility] Comment on above: Performed By: #### C BC ####[facility] Hjbgknuntg3492 [place] [address]Dr. Garima Heraclio CPKon 03-06-2023 CK [Catalytic activity/Vol] 191 U/L Normal 39-308 [facility] Comment on above: Performed By: #### C MP, BNP, CK ####[facility] Enxdofomlr520[address] [place], [place] [address]Dr. Garima Pulliam PROF 14(COMP METB)on 023 Albumin [Mass/Vol] 3.6 g/dL Normal 3.4-5.0 [facility] Comment on above: Performed By: #### C MP, BNP, CK ####[facility] Mnrqbfwbjh8738 [place] [address]Dr. Garima Pulliam Albumin/Globulin [Mass ratio] 1.2 {ratio} Normal [facility] Comment on above: Performed By: #### C MP, BNP, CK ####[facility] Hzhflxoefx0331 [place] [address]Dr. Garima Pulliam ALP [Catalytic activity/Vol] 91 U/L Normal 46-116 [facility] Comment on above: Performed By: #### C MP, BNP, CK ####[facility] Vlqduuqvid3987 [place] [address]Dr. Garima Pulliam ALT [Catalytic activity/Vol] 33 U/L Normal 16-63 [facility] Comment on above: Performed By: #### C MP, BNP, CK ####[facility] Xlskrpszlq0019 [place] [address]Dr. Garima Pulliam Anion gap [Moles/Vol] 10.3 mmol/L Normal [facility] Comment on above: Performed By: #### C MP, BNP, CK ####[facility] Nrhvbayfma9909 [place] [address]Dr. Garima Pulliam AST [Catalytic activity/Vol] 17 U/L Normal 15-37 [facility] Comment on above: Performed By: #### C MP, BNP, CK ####[facility] Wijyafxitw4039 [place] [address]Dr. Garima Pulliam Bilirubin [Mass/Vol] 0.4 mg/dL Normal 0.2-1.0 [facility] Comment on above: Performed By: #### C MP, BNP, CK ####[facility] Cfwmayzhmt8869 [place] [address]Dr. Garima Pulliam Calcium [Mass/Vol] 9.1 mg/dL Normal 8.5-10.1 [facility] Comment on above: Performed By: #### C MP, BNP, CK ####[facility] Hubdumauxh3938[address] [place], [place] [address]Dr. Garima Pulliam Chloride [Moles/Vol] 102 mmol/L Normal 98-107 [facility] Comment on above: Performed By: #### C MP, BNP, CK ####[facility] Kqccmirhtx4806 [place] [address]Dr. Garima Pulliam CO2 [Moles/Vol] 29.7 mmol/L Normal 21.0-32.0 [facility] Comment on above: Performed By: #### C MP, BNP, CK ####[facility] Hzqaobruvc4996 [place] [address]Dr. Garima Pulliam Creatinine [Mass/Vol] 0.79 mg/dL Normal 0.70-1.30 [facility] Comment on above: Performed By: #### C MP, BNP, CK ####[facility] Blsndvqvdm8103 [place] [address]Dr. Garima Pulliam EGFR-AF HAITIAN >60 Normal >=60 [facility] Comment on above: Performed By: #### C MP, BNP, CK ####[facility] Ajjxoagaab9608 [place] [address]Dr. Garima Pulliam EGFR-NON AF HAITIAN >60 Normal >=60 [facility] Comment on above: Performed By: #### C MP, BNP, CK ####[facility] Uvzhogqgoo1914 [place] [address]Dr. Garima Pulliam Globulin (S) [Mass/Vol] 3.0 g/dL Normal [facility] Comment on above: Performed By: #### C MP, BNP, CK ####[facility] Lmxyzzdohi5841 [place] [address]Dr. Garima Pulliam Glucose [Mass/Vol] 202 mg/dL Critically high 74-106 T [facility] Comment on above: Performed By: #### C MP, BNP, CK ####[facility] Ybhjvhkgvl404[address] [place], [place] [address]Dr. Garima Pulliam Potassium [Moles/Vol] 4.0 mmol/L Normal 3.5-5.1 [facility] Comment on above: Performed By: #### C MP, BNP, CK ####[facility] Lgvhwelhpa1674[address] [place], [place] [address]Dr. Garima Pulliam Protein [Mass/Vol] 6.6 g/dL Normal 6.4-8.2 [facility] Comment on above: Performed By: #### C MP, BNP, CK ####[facility] Jznyeleljs2958[address] [place], [place] [address]Dr. Garima Pulliam Sodium [Moles/Vol] 138 mmol/L Normal 136-145 [facility] Comment on above: Performed By: #### C MP, BNP, CK ####[facility] Kfbanmczim0718[address] [place], [place] [address]Dr. Garima Pulliam Urea nitrogen [Mass/Vol] 10.0 mg/dL Normal 7.0-18.0 [facility] Comment on above: Performed By: #### C MP, BNP, CK ####[facility] Qcqjxjsvgw0801[address] [place], [place] [address]Dr. Garima Pulliam Urea nitrogen/Creatinine [Mass ratio] 12.7 mg/mg Normal [facility] Comment on above: Performed By: #### C MP, BNP, CK ####[facility] Iuuvenalte3090[address] [place], [place] [address]DrAdalberto Pulliam US VERONICA DOP LEG BILon 023 US VERONICA DOP LEG BENOIT Normal [facility] CBC AUTO DIFFon 01-13-2023 BASO # 0.0 103/ul Normal 0.0-0.1 [facility] Comment on above: Performed By: #### C BC ####[facility] Kodaqsdvgp3580 [place] [address]DrAdalberto Pulliam Basophils/100 WBC (Bld) 0.0 % Critically low 0.2-2.0 [facility] Comment on above: Performed By: #### C BC ####[facility] Cprtdycuvi3197 [place] [address]DrAdalberto Pulliam EO # 0.0 103/ul Normal 0.0-0.7 [facility] Comment on above: Performed By: #### C BC ####[facility] Vfptuhrhvt9024 [place] [address]DrAdalberto Pulliam Eosinophils/100 WBC (Bld) 0.0 % Critically low 0.9-7.0 [facility] Comment on above: Performed By: #### C BC ####[facility] Ghswlweyym1468 [place] [address]DrAdalberto Pulliam Erythrocyte distribution width (RBC) [Ratio] 13.2 % Normal 11.0-15.0 [facility] Comment on above: Performed By: #### C BC ####[facility] Ajgeiqtywq3942 [place] [address]DrAdalberto Pulliam Hematocrit (Bld) [Volume fraction] 46.7 % Normal 42.0-54.0 [facility] Comment on above: Performed By: #### C BC ####[facility] Mjaspdvgck2136 [place] [address]DrAdalberto Pulliam Hemoglobin (Bld) [Mass/Vol] 15.6 g/dL Normal 14.0-18.0 [facility] Comment on above: Performed By: #### C BC ####[facility] Xxlkermzxe1867 [place] [address]DrAdalberto Pulliam IG # 0.01 10e3/ul Normal 0.00-0.03 [facility] Comment on above: Performed By: #### C BC ####[facility] Gaxszjtnam9741 [place] [address]DrAdalberto Chapisrenu Pulliam IG % 0.2 % Normal 0.0-0.5 [facility] Comment on above: Performed By: #### C BC ####[facility] Oormvzbtfa6622 [place] [address]25[address]DrAdalberto Chapisrenu Pulliam LYMPH # 0.8 103/ul Critically low 1.2-3.8 [facility] Comment on above: Performed By: #### C BC ####[facility] Prhgipbfjv3616 [place] [address]DrAdalberto Pulliam Lymphocytes/100 WBC (Bld) 12.7 % Critically low 20.5-60.0 [facility] Comment on above: Performed By: #### C BC ####[facility] Awaoizmfta0974 [place] [address]DrAdalberto Pulliam MANUAL DIFF REQ NO Normal [facility] Comment on above: Performed By: #### C BC ####[facility] Bmtkhclbbh7988 [place] [address]DrAdalberto Garima Heraclio MCH (RBC) [Entitic mass] 30.2 pg Normal 25.9-34.0 [facility] Comment on above: Performed By: #### C BC ####[facility] Epbaviwyxb8194 [place] [address]DrAdalberto Chapisrenu Pulliam MCHC (RBC) [Mass/Vol] 33.4 g/dL Normal 29.9-35.2 [facility] Comment on above: Performed By: #### C BC ####[facility] Hxcnbzxhmc6245 [place] [address]DrAdalberto Pulliam MCV (RBC) [Entitic vol] 90.3 fL Normal 80.0-94.0 [facility] Comment on above: Performed By: #### C BC ####[facility] Zzqcoexuge2445 [place] [address]DrAdalberto Pulliam MONO # 0.1 103/ul Critically low 0.3-0.8 [facility] Comment on above: Performed By: #### C BC ####[facility] Dhqhilwbjc2871 [place] [address]Dr. Garima Pulliam Monocytes/100 WBC (Bld) 0.9 % Critically low 1.7-12.0 [facility] Comment on above: Performed By: #### C BC ####[facility] Ifzekqlsnw4229 [place] [address]Dr. Garima Pulliam NEUT # 5.6 103/ul Normal 1.4-6.5 [facility] Comment on above: Performed By: #### C BC ####[facility] Soqpaxmyiv9629 [place] [address]Dr. Garima Pulliam Neutrophils/100 WBC (Bld) 86.2 % Critically high 43.0-75.0 [facility] Comment on above: Performed By: #### C BC ####[facility] Twsnmfgpyp2864 [place] [address]Dr. Garima Pulliam Platelet mean volume (Bld) [Entitic vol] 9.1 fL Critically low 9.5-13.5 [facility] Comment on above: Performed By: #### C BC ####[facility] Eykanhfilh0988[address] [place], [place] [address]Dr. Garima Pulliam PLT 169 103/ul Normal 150-450 [facility] Comment on above: Performed By: #### C BC ####[facility] Vywhjhhatt9013 [place] [address]Dr. Garima Pulliam RBC 5.17 106/ul Normal 4.70-6.10 [facility] Comment on above: Performed By: #### C BC ####[facility] Kcarwwglju3960 [place] [address]Dr. Garima Pulliam WBC 6.5 103/ul Normal 4.0-11.0 [facility] Comment on above: Performed By: #### C BC ####[facility] Zpvhdbspvo4[address] [place], [place] [address]Dr. Garima Pulliam D-DIMERon 01-13-2023 D-DIMER 0.41 mg/L FEU Normal <=0.59 [facility] Comment on above: Performed By: #### D DIM ####[facility] Rdijaabbwj8635 [place] [address]Dr. Garima Pulliam D-DIMER COMMENTS SEE BELOW Normal [facility] Comment on above: Result Comment: [...] generalized hospitalization. Performed By: #### D DIM ####[facility] Pyckyrntjz7356 [place] [address]Dr. Garima Pulliam PROF 14(COMP METB)on 023 Albumin [Mass/Vol] 3.4 g/dL Normal 3.4-5.0 [facility] Comment on above: Performed By: #### C MP ####[facility] Qmcflnbkvk3030 [place] [address]Dr. Garima Pulliam Albumin/Globulin [Mass ratio] 1.3 {ratio} Normal [facility] Comment on above: Performed By: #### C MP ####[facility] Tghgysbjmd2351 [place] [address]Dr. Garima Pulliam ALP [Catalytic activity/Vol] 83 U/L Normal 46-116 [facility] Comment on above: Performed By: #### C MP ####[facility] Dkbgjfbwaf4260 [place] [address]Dr. Garima Pulliam ALT [Catalytic activity/Vol] 25 U/L Normal 16-63 [facility] Comment on above: Performed By: #### C MP ####[facility] Yaumbjmgbi0679 [place] [address]Dr. Garima Pulliam Anion gap [Moles/Vol] 14.5 mmol/L Normal [facility] Comment on above: Performed By: #### C MP ####[facility] Vsyxkkqhum1312 [place] [address]Dr. Garima Pulliam AST [Catalytic activity/Vol] 19 U/L Normal 15-37 [facility] Comment on above: Performed By: #### C MP ####[facility] Gpakgxhaol8132 [place] [address]Dr. Garima Pulliam Bilirubin [Mass/Vol] 0.4 mg/dL Normal 0.2-1.0 [facility] Comment on above: Performed By: #### C MP ####[facility] Xinuzwpxmf3201 [place] [address]Dr. Garima Pulliam Calcium [Mass/Vol] 8.7 mg/dL Normal 8.5-10.1 [facility] Comment on above: Performed By: #### C MP ####[facility] Kxbwluwney2548 [place] [address]Dr. Garima Pulliam Chloride [Moles/Vol] 104 mmol/L Normal 98-107 [facility] Comment on above: Performed By: #### C MP ####[facility] Lxpwbkdrmf7467 [place] [address]Dr. Garima Pulliam CO2 [Moles/Vol] 24.5 mmol/L Normal 21.0-32.0 [facility] Comment on above: Performed By: #### C MP ####[facility] Ixzoyibrsk6589 [place] [address]Dr. Garima Pulliam Creatinine [Mass/Vol] 0.70 mg/dL Normal 0.70-1.30 [facility] Comment on above: Performed By: #### C MP ####[facility] Qguqsuaphu9082 [place] [address]Dr. Garima Pulliam EGFR-AF HAITIAN >60 Normal >=60 [facility] Comment on above: Performed By: #### C MP ####[facility] Vudpynzkoh5716 [place] [address]Dr. Garima Pulliam EGFR-NON AF HAITIAN >60 Normal >=60 [facility] Comment on above: Performed By: #### C MP ####[facility] F[address]xszeb[address] [place], [place] [id number]. Garima Pulliam Globulin (S) [Mass/Vol] 2.6 g/dL Normal [facility] Comment on above: Performed By: #### C MP ####[facility] Jnxhzqkiek[address]84[address] [address] [place], [place] [address]Dr. Garima Pulliam Glucose [Mass/Vol] 196 mg/dL Critically high 74-106 T [facility] Comment on above: Performed By: #### C MP ####[facility] Jsxjorkeiu[address] [place], [place] [address]Dr. Garima Pulliam Potassium [Moles/Vol] 4.0 mmol/L Normal 3.5-5.1 [facility] Comment on above: Performed By: #### C MP ####[facility] Rrlcnznhao[address] [place], [place] [address]Dr. Garima Pulliam Protein [Mass/Vol] 6.0 g/dL Critically low 6.4-8.2 Th [facility] Comment on above: Performed By: #### C MP ####[facility] Pknlocnaum[address] [place], [place] [address]Dr. Garima Pulliam Sodium [Moles/Vol] 139 mmol/L Normal 136-145 [facility] Comment on above: Performed By: #### C MP ####[facility] Bpzruvegds17[address] [place], [place] [address]Dr. Garima Pulliam Urea nitrogen [Mass/Vol] 7.0 mg/dL Normal 7.0-18.0 [facility] Comment on above: Performed By: #### C MP ####[facility] Lwhrygtzwg4654[address] [place], [place] [address]Dr. Garima Pulliam Urea nitrogen/Creatinine [Mass ratio] 10.0 mg/mg Normal [facility] Comment on above: Performed By: #### C MP ####[facility] Ynodozjehe5[address] [place], [place] [address]Dr. Garima Pulliam BNPon 01-12-2023 Natriuretic peptide B (Bld) [Mass/Vol] 141.0 pg/mL Normal <=900.0 [facility] Comment on above: Performed By: #### C MP, BNP, HSTROPN ####[facility] Ntrswjezaz[address] [place] [id number]. Garima Heraclio CBC AUTO DIFFon 01-12-2023 BASO # 0.0 103/ul Normal 0.0-0.1 [facility] Comment on above: Performed By: #### C BC ####[facility] Zughagovnc[address] [place], [place] [id number]. Garima Pulliam Basophils/100 WBC (Bld) 0.2 % Normal 0.2-2.0 [facility] Comment on above: Performed By: #### C BC ####[facility] Xhozzdzgbx05[address] [place], [place] [address]Dr. Garima Pulliam EO # 0.2 103/ul Normal 0.0-0.7 [facility] Comment on above: Performed By: #### C BC ####[facility] Rwuzmlncxx48[address] [place], [place] [address]Dr. Garima Pulliam Eosinophils/100 WBC (Bld) 2.7 % Normal 0.9-7.0 [facility] Comment on above: Performed By: #### C BC ####[facility] Damhkqgose17[address] [place], [place] [address]Dr. Chapisrenu Pulliam Erythrocyte distribution width (RBC) [Ratio] 13.3 % Normal 11.0-15.0 [facility] Comment on above: Performed By: #### C BC ####[facility] Hadcuxuwzv26[address] [place], [place] [address]Dr. Garima Pulliam Hematocrit (Bld) [Volume fraction] 42.3 % Normal 42.0-54.0 [facility] Comment on above: Performed By: #### C BC ####[facility] Tlrhgqjgsb8[address] [place], [place] [address]Dr. Chapisrenu Pulliam Hemoglobin (Bld) [Mass/Vol] 14.3 g/dL Normal 14.0-18.0 [facility] Comment on above: Performed By: #### C BC ####[facility] Behgucsiks0812[address] [place], [place] [address]Dr. Garima Pulliam IG # 0.02 10e3/ul Normal 0.00-0.03 [facility] Comment on above: Performed By: #### C BC ####[facility] Pbekbpiiri80[address] [place] [id number]. Chapisrenu Pulliam IG % 0.2 % Normal 0.0-0.5 [facility] Comment on above: Performed By: #### C BC ####[facility] Mghyvzvxwl9167 [place] [address]Dr. Garima Pulliam LYMPH # 2.6 103/ul Normal 1.2-3.8 [facility] Comment on above: Performed By: #### C BC ####[facility] Lizazonstt[address] [place] [address]Dr. Chapisrenu Pulliam Lymphocytes/100 WBC (Bld) 29.6 % Normal 20.5-60.0 [facility] Comment on above: Performed By: #### C BC ####[facility] [address]fspcavx[address] [place] [address]Dr. Garima Pulliam MANUAL DIFF REQ NO Normal [facility] Comment on above: Performed By: #### C BC ####[facility] Yjteoyarei[address] [place] [address]Dr. Garima Pulliam MCH (RBC) [Entitic mass] 30.2 pg Normal 25.9-34.0 [facility] Comment on above: Performed By: #### C BC ####[facility] Ak[address]ftknjd[address] [place] [address]Dr. Garima Pulliam MCHC (RBC) [Mass/Vol] 33.8 g/dL Normal 29.9-35.2 [facility] Comment on above: Performed By: #### C BC ####[facility] Rfwtpmlmtf8[address] [place], [place] [address]Dr. Garima Pulliam MCV (RBC) [Entitic vol] 89.2 fL Normal 80.0-94.0 [facility] Comment on above: Performed By: #### C BC ####[facility] Iaagrbzmnk[address] [place], [place] [address]Dr. Garima Pulliam MONO # 0.7 103/ul Normal 0.3-0.8 [facility] Comment on above: Performed By: #### C BC ####[facility] Easmmbsrjr4[address] [place] [address]Dr. Garima Pulliam Monocytes/100 WBC (Bld) 8.3 % Normal 1.7-12.0 [facility] Comment on above: Performed By: #### C BC ####[facility] Eejpuutrgw[address] [place] [address]Dr. Garima Pulliam NEUT # 5.1 103/ul Normal 1.4-6.5 [facility] Comment on above: Performed By: #### C BC ####[facility] Hwbzwihtea09[address] [place] [address]Dr. Garima Pulliam Neutrophils/100 WBC (Bld) 59.0 % Normal 43.0-75.0 [facility] Comment on above: Performed By: #### C BC ####[facility] Q[address]lsdlzwnl[address] [place] [address]Dr. Garima Pulliam Platelet mean volume (Bld) [Entitic vol] 8.7 fL Critically low 9.5-13.5 [facility] Comment on above: Performed By: #### C BC ####[facility] Chvbyhcjdl5[address] [place] [address]Dr. Garima Pulliam PLT 182 103/ul Normal 150-450 [facility] Comment on above: Performed By: #### C BC ####[facility] Ukeplxgnea17[address] [place] [address]Dr. Garima Pulliam RBC 4.74 106/ul Normal 4.70-6.10 [facility] Comment on above: Performed By: #### C BC ####[facility] Vhpxfvpobx4[address] [place] [address]Dr. Garima Pulliam WBC 8.7 103/ul Normal 4.0-11.0 [facility] Comment on above: Performed By: #### C BC ####[facility] Feymurhnfs10[address] [place] [phone]. Garima Pulliam Cov[facility]-19 PCR ([facility]on 12-25 SARS-CoV-2 (COVID-19) RNA MARIE+probe Ql (Unsp spec) Not detected Normal NOT DETECTED [facility] Comment on above: Result Comment: [...] for this test is supported by the Hospice Consultant of Health and Human Service's declaration that [...] be used). Performed By: #### C VDTB ####[facility] Bcumiybkoh[address] [place] [address]Dr. Garima Pulliam PROF 14(COMP METB)on 023 Albumin [Mass/Vol] 3.6 g/dL Normal 3.4-5.0 [facility] Comment on above: Performed By: #### C MP, BNP, HSTROPN ####[facility] Qweelqhtwb[address] [place] [address]Dr. Garima Pulliam Albumin/Globulin [Mass ratio] 1.5 {ratio} Normal [facility] Comment on above: Performed By: #### C MP, BNP, HSTROPN ####[facility] Khzcoijlti12[address] [place] [address]Dr. Garima Pulliam ALP [Catalytic activity/Vol] 79 U/L Normal 46-116 [facility] Comment on above: Performed By: #### C MP, BNP, HSTROPN ####[facility] Ybqxkahxwm42[address] [place] [address]Dr. Garima Pulliam ALT [Catalytic activity/Vol] 27 U/L Normal 16-63 [facility] Comment on above: Performed By: #### C MP, BNP, HSTROPN ####[facility] Zanuqmtovm216[address] [place] [address]Dr. Garima Pulliam Anion gap [Moles/Vol] 11.7 mmol/L Normal [facility] Comment on above: Performed By: #### C MP, BNP, HSTROPN ####[facility] Vzqcwvmqbl18[address] [place] [address]Dr. Garima Pulliam AST [Catalytic activity/Vol] 21 U/L Normal 15-37 [facility] Comment on above: Performed By: #### C MP, BNP, HSTROPN ####[facility] Xpmjgxnhse25[address] [place] [address]Dr. Garima Pulliam Bilirubin [Mass/Vol] 0.3 mg/dL Normal 0.2-1.0 [facility] Comment on above: Performed By: #### C MP, BNP, HSTROPN ####[facility] Tdgbcimlml5207[address] [place], [place] [address]Dr. Garima Pulliam Calcium [Mass/Vol] 8.9 mg/dL Normal 8.5-10.1 [facility] Comment on above: Performed By: #### C MP, BNP, HSTROPN ####[facility] Pxealdztnd1837[address] [place], [place] [address]Dr. Garima Pulliam Chloride [Moles/Vol] 107 mmol/L Normal 98-107 [facility] Comment on above: Performed By: #### C MP, BNP, HSTROPN ####[facility] Womlnfjala7598[address] [place], [place] [address]Dr. Garima Pulliam CO2 [Moles/Vol] 26.0 mmol/L Normal 21.0-32.0 [facility] Comment on above: Performed By: #### C MP, BNP, HSTROPN ####[facility] Jorwwafiyy7768[address] [place], [place] [address]Dr. Garima Pulliam Creatinine [Mass/Vol] 0.65 mg/dL Critically low 0.70-1.30 [facility] Comment on above: Performed By: #### C MP, BNP, HSTROPN ####[facility] Sfsstdzfgp[address] [place] [address]Dr. Garima Pulliam EGFR-AF HAITIAN >60 Normal >=60 [facility] Comment on above: Performed By: #### C MP, BNP, HSTROPN ####[facility] Zwqlwjnqen57[address] [place] [address]Dr. Garima Pulliam EGFR-NON AF HAITIAN >60 Normal >=60 [facility] Comment on above: Performed By: #### C MP, BNP, HSTROPN ####[facility] Lcranbewgf6490[address] [place], [place] [address]Dr. Garima Pulliam Globulin (S) [Mass/Vol] 2.4 g/dL Normal [facility] Comment on above: Performed By: #### C MP, BNP, HSTROPN ####[facility] Dmppylzwlx9[address] [place], [place] [address]Dr. Garima Pulliam Glucose [Mass/Vol] 85 mg/dL Normal 74-106 [facility] Comment on above: Performed By: #### C MP, BNP, HSTROPN ####[facility] Rjetwoefwn462[address] [place], [place] [address]Dr. Garima Pulliam Potassium [Moles/Vol] 3.7 mmol/L Normal 3.5-5.1 [facility] Comment on above: Performed By: #### C MP, BNP, HSTROPN ####[facility] Byhmijvqhe2405[address] [place], [place] [address]Dr. Garima Pulliam Protein [Mass/Vol] 6.0 g/dL Critically low 6.4-8.2 [facility] Comment on above: Performed By: #### C MP, BNP, HSTROPN ####[facility] Sfjjsimrmf[address] [place], [place] [address]Dr. Garima Pulliam Sodium [Moles/Vol] 141 mmol/L Normal 136-145 [facility] Comment on above: Performed By: #### C MP, BNP, HSTROPN ####[facility] Xqpymqtlwo6057[address] [place], [place] [address]Dr. Garima Pulliam Urea nitrogen [Mass/Vol] 5.0 mg/dL Critically low 7.0-18.0 [facility] Comment on above: Performed By: #### C MP, BNP, HSTROPN ####[facility] Spvcpswmzz5[address] [place] [address]Dr. Garima Pulliam Urea nitrogen/Creatinine [Mass ratio] 7.7 mg/mg Normal [facility] Comment on above: Performed By: #### C MP, BNP, HSTROPN ####[facility] Cabpvbuwjd4618[address] [place], [place] [address]Dr. Garima Pulliam PROTIMEon 01-12-2023 INR Coag (PPP) [Relative time] 1.16 {INR} Normal [facility] Comment on above: Performed By: #### P TT, PT ####[facility] [address]lhpuyx[address] [place] [address]. Garima Pulliam INR GUIDELINES SEE BELOW Normal [facility] Comment on above: Result Comment: WESLEY RED INR: 2.0 - 3.0 CONDITIONS NOT LISTED BELOW 2.5 - 3.5 FOR PROSTHETIC HEART VALVE REPLACEMENT 2.5 - 3.5 RECURRENT THROMBOSIS Performed By: #### P TT, PT ####[facility] Sfskwuvjwi42[address] [place], [place] [address]Dr. Garima Pulliam PT Coag (PPP) [Time] 12.2 s Critically high 9.0-11.6 [facility] Comment on above: Performed By: #### P TT, PT ####[facility] Mihvmiaxqt5[address] [place], [place] [address]Dr. Garima Pulliam PTTon 01-12-2023 aPTT Coag (Bld) [Time] 29.1 s Normal 22.3-36.2 [facility] Comment on above: Performed By: #### P TT, PT ####[facility] Rzexgugwsb[address] [place], [place] [address]Dr. Garima Pulliam TROPONIN, HIGH SENSITIVITYon 01-12-2023 HSTROP 10.3 pg/mL Normal 4.0-76.1 [facility] Comment on above: Result Comment: CUT- OFF POINTS HAVE BEEN ESTABLISHED BASED ON THE FOURTH UNIVERSAL DEFINITIONS OF MYOCARDIALINFARCTION. THE UPPER REFERENCE LIMIT (URL) OF TROPONIN, DEFINED THE 99TH PERCENTILE OFcTnI DISTRIBUTION IN A REFERENCE POPULATION, HAS BEEN CONFIRMED THE DECISION THRESHOLDFOR OK DIAGNOSIS. Performed By: #### H STROPN ####[facility] Evig[address]ifynm[address] [place] [address]Dr. Garima Pulliam HSTROP 9.2 pg/mL Normal 4.0-76.1 [facility] Comment on above: Result Comment: CUT- OFF POINTS HAVE BEEN ESTABLISHED BASED ON THE FOURTH UNIVERSAL DEFINITIONS OF MYOCARDIALINFARCTION. THE UPPER REFERENCE LIMIT (URL) OF TROPONIN, DEFINED THE 99TH PERCENTILE OFcTnI DISTRIBUTION IN A REFERENCE POPULATION, HAS BEEN CONFIRMED THE DECISION THRESHOLDFOR OK DIAGNOSIS. Performed By: #### C MP, BNP, HSTROPN ####[facility] [address]cbpwzyfr24[address] [place] [address]Dr. Garima Pulliam XR CHEST 1 Von 01-12-2023 XR CHEST 1 V Normal [facility] XR CHEST 1 Von 01-01-2023 XR CHEST 1 V Normal [facility] CARDIAC NASH 3-6on 3 CK [Catalytic activity/Vol] 196 U/L Normal 39-308 [facility] Comment on above: Performed By: #### C MREP ####[facility] Alcmxyzhmm[address] [place] [address]Dr. Garima Pulliam CK.MB [Mass/Vol] 7.41 ng/mL Critically high <=3.60 [facility] Comment on above: Performed By: #### C MREP ####[facility] Mjduobqxnx3[address] [place] [address]Dr. Garima Pulliam HSTROP 10.3 pg/mL Normal 4.0-76.1 [facility] Comment on above: Result Comment: CUT- OFF POINTS HAVE BEEN ESTABLISHED BASED ON THE FOURTH UNIVERSAL DEFINITIONS OF MYOCARDIALINFARCTION. THE UPPER REFERENCE LIMIT (URL) OF TROPONIN, DEFINED THE 99TH PERCENTILE OFcTnI DISTRIBUTION IN A REFERENCE POPULATION, HAS BEEN CONFIRMED THE DECISION THRESHOLDFOR OK DIAGNOSIS. Performed By: #### C MREP ####[facility] [address]vqiie[address] [place] [address]Dr. Garima Pulliam XR CHEST 1 Von 12-26-2022 XR CHEST 1 V Normal [facility] BNPon 12-25-2022 Natriuretic peptide B (Bld) [Mass/Vol] 98.0 pg/mL Normal <=900.0 [facility] Comment on above: Performed By: #### B PLANNING MANAGER, BMP, CMADM ####[facility] Zxrpgjqvep[address] [place] [id number]. Garima Pulliam CARDIAC NASH ADMITon 023 CK [Catalytic activity/Vol] 208 U/L Normal 39-308 [facility] Comment on above: Performed By: #### B PLANNING MANAGER, BMP, CMADM ####[facility] Kbdybiikob67[address] [place] [address]Dr. Garima Pulliam CK.MB [Mass/Vol] 7.63 ng/mL Critically high <=3.60 [facility] Comment on above: Performed By: #### B PLANNING MANAGER, BMP, CMADM ####[facility] Axwdalrglb3[address] [place] [address]Dr. Garima Pulliam HSTROP 8.8 pg/mL Normal 4.0-76.1 [facility] Comment on above: Result Comment: CUT- OFF POINTS HAVE BEEN ESTABLISHED BASED ON THE FOURTH UNIVERSAL DEFINITIONS OF MYOCARDIALINFARCTION. THE UPPER REFERENCE LIMIT (URL) OF TROPONIN, DEFINED THE 99TH PERCENTILE OFcTnI DISTRIBUTION IN A REFERENCE POPULATION, HAS BEEN CONFIRMED THE DECISION THRESHOLDFOR OK DIAGNOSIS. Performed By: #### B PLANNING MANAGER, BMP, CMADM ####[facility] Mgpqubnuxo57[address] [place] [address]Dr. Garima Pulliam DORIS 83 ng/mL Normal 16-96 [facility] Comment on above: Performed By: #### B PLANNING MANAGER, BMP, CMADM ####[facility] Asaylviiin68[address] [place] [id number]. Garima Pulliam CBC AUTO DIFFon 12-25-2022 BASO # 0.0 103/ul Normal 0.0-0.1 [facility] Comment on above: Performed By: #### C BC ####[facility] Ihxuispgib0168 [place] [address]Dr. Garima Pulliam Basophils/100 WBC (Bld) 0.0 % Critically low 0.2-2.0 [facility] Comment on above: Performed By: #### C BC ####[facility] Yrmfhjizvr44[address] [place], [place] [address]Dr. Garima Pulliam EO # 0.0 103/ul Normal 0.0-0.7 [facility] Comment on above: Performed By: #### C BC ####[facility] Rqlqubxaeb6397[address] [place], [place] [address]Dr. Garima Pulliam Eosinophils/100 WBC (Bld) 0.7 % Critically low 0.9-7.0 [facility] Comment on above: Performed By: #### C BC ####[facility] Krgfbixiju193[address] [place], [place] [address]Dr. Garima Pulliam Erythrocyte distribution width (RBC) [Ratio] 13.4 % Normal 11.0-15.0 [facility] Comment on above: Performed By: #### C BC ####[facility] Xqdgjgleeb659[address] [place], [place] [address]Dr. Garima Pulliam Hematocrit (Bld) [Volume fraction] 42.9 % Normal 42.0-54.0 [facility] Comment on above: Performed By: #### C BC ####[facility] Aarhvgtobq393[address] [place], [place] [address]Dr. Chapisrenu Pulliam Hemoglobin (Bld) [Mass/Vol] 14.4 g/dL Normal 14.0-18.0 [facility] Comment on above: Performed By: #### C BC ####[facility] Kjnluacgxq595[address] [place], [place] [address]Dr. Garima Pulliam IG # 0.00 10e3/ul Normal 0.00-0.03 [facility] Comment on above: Performed By: #### C BC ####[facility] Lrkyqvbxsn1213[address] [place], [place] [address]Dr. Garima Pulliam IG % 0.0 % Normal 0.0-0.5 [facility] Comment on above: Performed By: #### C BC ####[facility] Axdxpujmzm0640[address] [place], [place] [address]Dr. Garima Pulliam LYMPH # 2.4 103/ul Normal 1.2-3.8 [facility] Comment on above: Performed By: #### C BC ####[facility] Vftknhlntg9065 [place] [address]Dr. Garima Pulliam Lymphocytes/100 WBC (Bld) 29.2 % Normal 20.5-60.0 [facility] Comment on above: Performed By: #### C BC ####[facility] Tnqpusxjjg9085 [place] [address]DrAdalberto Pulliam MANUAL DIFF REQ NO Normal [facility] Comment on above: Performed By: #### C BC ####[facility] Itcmtdgqdx4973 [place] [address]Dr. Garima Pulliam MCH (RBC) [Entitic mass] 30.7 pg Normal 25.9-34.0 [facility] Comment on above: Performed By: #### C BC ####[facility] Zufawftzai[address] [place], [place] [address]Dr. Garima Pulliam MCHC (RBC) [Mass/Vol] 33.6 g/dL Normal 29.9-35.2 [facility] Comment on above: Performed By: #### C BC ####[facility] Aywpfodtqv8[address] [place], [place] [address]DrAdalberto Pulliam MCV (RBC) [Entitic vol] 91.5 fL Normal 80.0-94.0 [facility] Comment on above: Performed By: #### C BC ####[facility] Ilynstxlhf2975 [place] [address]Dr. Garima Pulliam MONO # 0.0 103/ul Critically low 0.3-0.8 [facility] Comment on above: Performed By: #### C BC ####[facility] Zdvszimghv8824[address] [place], [place] [address]DrAdalberto Pulliam Monocytes/100 WBC (Bld) 8.0 % Normal 1.7-12.0 [facility] Comment on above: Performed By: #### C BC ####[facility] Sjmqdydfev09[address] [place], [place] [address]DrAdalberto Pulliam NEUT # 5.1 103/ul Normal 1.4-6.5 [facility] Comment on above: Performed By: #### C BC ####[facility] Dbucioydtk2575 [place] [address]Dr. Garima Pulliam Neutrophils/100 WBC (Bld) 62.8 % Normal 43.0-75.0 [facility] Comment on above: Performed By: #### C BC ####[facility] Cabflktlto6170 [place] [address]Dr. Garima Pulliam Platelet mean volume (Bld) [Entitic vol] 8.6 fL Critically low 9.5-13.5 [facility] Comment on above: Performed By: #### C BC ####[facility] Eilwwtevii8984 [place] [address]Dr. Garima Pulliam PLT 200 103/ul Normal 150-450 [facility] Comment on above: Performed By: #### C BC ####[facility] Hpyhtsaupb4616 [place] [address]Dr. Garima Pulliam RBC 4.69 106/ul Critically low 4.70-6.10 [facility] Comment on above: Performed By: #### C BC ####[facility] Kdxsvpvnpf8878 [place] [address]Dr. Garima Pulliam WBC 8.2 103/ul Normal 4.0-11.0 [facility] Comment on above: Performed By: #### C BC ####[facility] Ypiohsoqhx0846 [place] [address]Dr. Garima Pulliam Covid-19 PCR ([facility])on SARS-CoV-2 (COVID-19) RNA MARIE+probe Ql (Unsp spec) Not detected Normal NOT DETECTED [facility] Comment on above: Result Comment: [...] for this test is supported by the Hospice Consultant of Health and Human Service's declaration that [...] be used). Performed By: #### C VDTBH ####[facility] Zabibdklwg[address] [place], [place] [address]Dr. Garima Pulliam INFLUENZA A AND B AGon 12-25 INFLUANE SEE BELOW Normal [facility] Comment on above: Result Comment: Nega tive for Flu A protein angiten. Infection due to Flu A cannot be ruled out. Flu A angiten in the sample may be below the detection limit of the test. Performed By: #### I NFLUAB ####[facility] [address]afozf[address] [place] [address]. Garima Pulliam INFLUBNEGH SEE BELOW Normal [facility] Comment on above: Result Comment: Nega tive for Flu B protein antigen. Infection due to Flu B cannot be ruled out. Flu B antigen in the sample may be below the detection limit of the test. Performed By: #### I NFLUAB ####[facility] Sqjnqqzkpq32[address] [place], [place] [address]Dr. renu Pulliam INFLUENZA A AG Negative Normal NEGATIVE SEE COMMENT [facility] Comment on above: Performed By: #### I NFLUAB ####[facility] Guaczbauzx[address] [place], [place] [address]Dr. Garima Pulliam INFLUENZA B AG Negative Normal NEGATIVE SEE COMMENT [facility] Comment on above: Performed By: #### I NFLUAB ####[facility] C[address]pswrgia[address] [place] [address]. Garima Pulliam PROF CHEM 8 (BAS METB)on Anion gap [Moles/Vol] 11.1 mmol/L Normal Th [facility] Comment on above: Performed By: #### B PLANNING MANAGER, BMP, CMADM ####[facility] Lpnuhynzta4791 [place] [id number]. Garima Pulliam Calcium [Mass/Vol] 8.5 mg/dL Normal 8.5-10.1 [facility] Comment on above: Performed By: #### B PLANNING MANAGER, BMP, CMADM ####[facility] Ojteftpxml6797 [place] [id number]. Garima Pulliam Chloride [Moles/Vol] 106 mmol/L Normal 98-107 [facility] Comment on above: Performed By: #### B PLANNING MANAGER, BMP, CMADM ####[facility] Mnuaaixfjc5360 [place] [address]Dr. Garima Pulliam CO2 [Moles/Vol] 27.4 mmol/L Normal 21.0-32.0 [facility] Comment on above: Performed By: #### B PLANNING MANAGER, BMP, CMADM ####[facility] Ipmctrmzly5189 [place] [address]Dr. Garima Pulliam Creatinine [Mass/Vol] 0.65 mg/dL Critically low 0.70-1.30 [facility] Comment on above: Performed By: #### B PLANNING MANAGER, BMP, CMADM ####[facility] Clgorkyduw7704 [place] [address]Dr. Garima Pulliam EGFR-AF HAITIAN >60 Normal >=60 [facility] Comment on above: Performed By: #### B PLANNING MANAGER, BMP, CMADM ####[facility] Dcryfjnayc4920 [place] [address]Dr. Garima Pulliam EGFR-NON AF HAITIAN >60 Normal >=60 [facility] Comment on above: Performed By: #### B PLANNING MANAGER, BMP, CMADM ####[facility] Iaurukscpx0296 [place] [address]Dr. Garima Pulliam Glucose [Mass/Vol] 140 mg/dL Critically high 74-106 [facility] Comment on above: Performed By: #### B PLANNING MANAGER, BMP, CMADM ####[facility] Fomzcklavu1833 [place] [address]Dr. Garima Pulliam Potassium [Moles/Vol] 3.5 mmol/L Normal 3.5-5.1 [facility] Comment on above: Performed By: #### B PLANNING MANAGERMARVIN, NANCY ####[facility] [address]ugtmavh[address] [place] [address]Dr. Chapisrenu Pulliam Sodium [Moles/Vol] 141 mmol/L Normal 136-145 [facility] Comment on above: Performed By: #### B PLANNING MANAGERMARVIN, CMAANA ROSA ####[facility] Hzjnzmnkva75[address] [place] [address]Dr. Garima Pulliam Urea nitrogen [Mass/Vol] 8.0 mg/dL Normal 7.0-18.0 [facility] Comment on above: Performed By: #### B MARVIN FRENCH CMADM ####[facility] Zctmjypcpz[address] [place] [address]Dr. Garima Pulilam Urea nitrogen/Creatinine [Mass ratio] 12.3 mg/mg Normal [facility] Comment on above: Performed By: #### B MARVIN FRENCH CMAANA ROSA ####[facility] Ixzakcplwq90[address] [place] [address]Dr. Garima Heraclio CARDIAC NASH ADMITon 023 CK [Catalytic activity/Vol] 165 U/L Normal 39-308 [facility] Comment on above: Performed By: #### B NANCY HERNANDEZ ####[facility] Ycsyosalnb[address] [place], [place] [address]Dr. Garima Pulliam CK.MB [Mass/Vol] 6.48 ng/mL Critically high <=3.60 [facility] Comment on above: Performed By: #### B MP, CMADM ####[facility] [address]hixhvs[address] [place], [place] [address]Dr. Garima Heraclio HSTROP 11.7 pg/mL Normal 4.0-76.1 [facility] Comment on above: Result Comment: CUT- OFF POINTS HAVE BEEN ESTABLISHED BASED ON THE FOURTH UNIVERSAL DEFINITIONS OF MYOCARDIALINFARCTION. THE UPPER REFERENCE LIMIT (URL) OF TROPONIN, DEFINED THE 99TH PERCENTILE OFcTnI DISTRIBUTION IN A REFERENCE POPULATION, HAS BEEN CONFIRMED THE DECISION THRESHOLDFOR [place] DIAGNOSIS. Performed By: #### B DAVID, CMADM ####[facility] Wxjhsbeyjy12[address] [place] [id number]. Garima Pulliam DORIS 83 ng/mL Normal 16-96 [facility] Comment on above: Performed By: #### B MP, CMADM ####[facility] Tadtskcbry67[address] [place] [id number]. Garima Pulliam CBC AUTO DIFFon 12-10-2022 BASO # 0.0 103/ul Normal 0.0-0.1 [facility] Comment on above: Performed By: #### C BC ####[facility] Xjrbkstizl54[address] [place] [id number]. Garima Pulliam Basophils/100 WBC (Bld) 0.3 % Normal 0.2-2.0 [facility] Comment on above: Performed By: #### C BC ####[facility] Mkzhyusgwv[address] [place] [address]Dr. Garima Pulliam EO # 0.1 103/ul Normal 0.0-0.7 [facility] Comment on above: Performed By: #### C BC ####[facility] Vwzfswymwg8303 [place] [id number]. Garima Pulliam Eosinophils/100 WBC (Bld) 0.4 % Critically low 0.9-7.0 [facility] Comment on above: Performed By: #### C BC ####[facility] Oxzbpybmck3493 [place] [id number]. Garima Pulliam Erythrocyte distribution width (RBC) [Ratio] 13.2 % Normal 11.0-15.0 [facility] Comment on above: Performed By: #### C BC ####[facility] Sfzqubyghc[address] [place], [place] [address]Dr. Garima Pulliam Hematocrit (Bld) [Volume fraction] 42.4 % Normal 42.0-54.0 [facility] Comment on above: Performed By: #### C BC ####[facility] Fckktljsxq[address] [place], [place] [address]Dr. Garima Pulliam Hemoglobin (Bld) [Mass/Vol] 14.4 g/dL Normal 14.0-18.0 [facility] Comment on above: Performed By: #### C BC ####[facility] Qfahnnmdfv29[address] [place] [address]Dr. Garima Pulliam IG # 0.05 10e3/ul Critically high 0.00-0.03 [facility] Comment on above: Performed By: #### C BC ####[facility] Yktvdeuqqv1889 [place] [address]Dr. Garima Pulliam IG % 0.4 % Normal 0.0-0.5 [facility] Comment on above: Performed By: #### C BC ####[facility] Ceqbeitwwu5[address] [place] [address]Dr. Garima Pulliam LYMPH # 0.8 103/ul Critically low 1.2-3.8 [facility] Comment on above: Performed By: #### C BC ####[facility] Niwfsclvts2399 [place] [address]Dr. Garima Pulliam Lymphocytes/100 WBC (Bld) 6.5 % Critically low 20.5-60.0 [facility] Comment on above: Performed By: #### C BC ####[facility] Rpryedrpbt01[address] [place] [address]Dr. Garima Pulliam MANUAL DIFF REQ NO Normal [facility] Comment on above: Performed By: #### C BC ####[facility] Fjuhciugwj9[address] [place] [address]Dr. Garima Pulliam MCH (RBC) [Entitic mass] 30.5 pg Normal 25.9-34.0 [facility] Comment on above: Performed By: #### C BC ####[facility] Wpaqnaegfd[address] [place], [place] [address]Dr. Garima Pulliam MCHC (RBC) [Mass/Vol] 34.0 g/dL Normal 29.9-35.2 [facility] Comment on above: Performed By: #### C BC ####[facility] Yjxzggscpe8[address] [place], [place] [address]Dr. Garima Pulliam MCV (RBC) [Entitic vol] 89.8 fL Normal 80.0-94.0 [facility] Comment on above: Performed By: #### C BC ####[facility] Cxqoyxpkld2370 [place] [address]Dr. Garima Pulliam MONO # 0.2 103/ul Critically low 0.3-0.8 [facility] Comment on above: Performed By: #### C BC ####[facility] Zcmwervdyp1864 [place] [address]Dr. Garima Pulliam Monocytes/100 WBC (Bld) 2.0 % Normal 1.7-12.0 [facility] Comment on above: Performed By: #### C BC ####[facility] Rsxmkrjajo9659 [place] [address]Dr. Garima Pulliam NEUT # 10.5 103/ul Critically high 1.4-6.5 [facility] Comment on above: Performed By: #### C BC ####[facility] Kxfmpavodn7164 [place] [address]Dr. Garima Pulliam Neutrophils/100 WBC (Bld) 90.4 % Critically high 43.0-75.0 [facility] Comment on above: Performed By: #### C BC ####[facility] Uxbuhtwidc26[address] [place] [address]Dr. Garima Pulliam Platelet mean volume (Bld) [Entitic vol] 9.4 fL Critically low 9.5-13.5 [facility] Comment on above: Performed By: #### C BC ####[facility] Taxzwotihe1246 [place] [address]Dr. Garima Pulliam PLT 198 103/ul Normal 150-450 [facility] Comment on above: Performed By: #### C BC ####[facility] Uqznkkudnx5377 [place] [address]Dr. Garima Pulliam RBC 4.72 106/ul Normal 4.70-6.10 [facility] Comment on above: Performed By: #### C BC ####[facility] Nipnlwuolg4470 [place] [address]Dr. Garima Pulliam WBC 11.6 103/ul Critically high 4.0-11.0 [facility] Comment on above: Performed By: #### C BC ####[facility] Kysgpyxunh9[address] [place] [address]Dr. Garima Pulliam PROF CHEM 8 (BAS METB)on Anion gap [Moles/Vol] 11.3 mmol/L Normal [facility] Comment on above: Performed By: #### B DAVID, CMADM ####[facility] Niuytqzqjd9[address] [place] [address]Dr. Garima Pulliam Calcium [Mass/Vol] 8.9 mg/dL Normal 8.5-10.1 [facility] Comment on above: Performed By: #### B DAVID, NANCY ####[facility] Vshxqjkwlw34[address] [place] [address]Dr. Garima Pulliam Chloride [Moles/Vol] 103 mmol/L Normal 98-107 [facility] Comment on above: Performed By: #### B DAVID, CMADM ####[facility] Tdeyfsesos[address] [place], [place] [address]Dr. Garima Pulliam CO2 [Moles/Vol] 28.2 mmol/L Normal 21.0-32.0 [facility] Comment on above: Performed By: #### Trae HERNANDEZ, NANCY ####[facility] Hxfymjbmvm[address] [place] [address]Dr. Garima Pulliam Creatinine [Mass/Vol] 0.60 mg/dL Critically low 0.70-1.30 [facility] Comment on above: Performed By: #### Trae HERNANDEZ, CMAANA ROSA ####[facility] Xnvwmksqes72[address] [place] [address]Dr. Garima Pulliam EGFR-AF HAITIAN >60 Normal >=60 [facility] Comment on above: Performed By: #### B DAVID, CMAANA ROSA ####[facility] Ynkgfdbtam2808 [place] [address]Dr. Garima Pulliam EGFR-NON AF HAITIAN >60 Normal >=60 [facility] Comment on above: Performed By: #### B DAVID, CMADM ####[facility] Jchbaxwufv55[address] [place] [address]Dr. Garima Pulliam Glucose [Mass/Vol] 166 mg/dL Critically high 74-106 [facility] Comment on above: Performed By: #### B DAVID, CMADM ####[facility] Thdytvrecq0747 [place] [address]Dr. Garima Pulliam Potassium [Moles/Vol] 3.5 mmol/L Normal 3.5-5.1 [facility] Comment on above: Performed By: #### B DAVID, CMADM ####[facility] Sceiemwkzm9[address] [place], [place] [address]Dr. Garima Pulliam Sodium [Moles/Vol] 139 mmol/L Normal 136-145 [facility] Comment on above: Performed By: #### B DAVID, CMADM ####[facility] Jhllwcadkr1864[address] [place], [place] [address]Dr. Chapisrenu Heraclio Urea nitrogen [Mass/Vol] 9.0 mg/dL Normal 7.0-18.0 [facility] Comment on above: Performed By: #### B DAVID, CMAANA ROSA ####[facility] Nguqifnkwk[address] [place], [place] [address]Dr. Garima Pulliam Urea nitrogen/Creatinine [Mass ratio] 15.0 mg/mg Normal [facility] Comment on above: Performed By: #### B DAVID, CMAANA ROSA ####[facility] Wqyobzruvx[address] [place], [place] [address]Dr. Garima Heraclio XR CHEST 1 Von 12-10-2022 XR CHEST 1 V Normal [facility] BNPon 11-27-2022 Natriuretic peptide B (Bld) [Mass/Vol] 95.0 pg/mL Normal <=900.0 [facility] Comment on above: Performed By: #### C MP, HSTROPN, BNP ####[facility] Denlxnixgk415[address] [place], [place] [address]Dr. Garima Pulliam CBC AUTO DIFFon 11-27-2022 BASO # 0.0 103/ul Normal 0.0-0.1 [facility] Comment on above: Performed By: #### C BC ####[facility] Pzrzuzayur[address] [place], [place] [address]Dr. Garima Pulliam Basophils/100 WBC (Bld) 0.2 % Normal 0.2-2.0 [facility] Comment on above: Performed By: #### C BC ####[facility] Ububurnccx6711 [place] [address]Dr. Garima Pulliam EO # 0.2 103/ul Normal 0.0-0.7 [facility] Comment on above: Performed By: #### C BC ####[facility] Lmtuxoqzci4001 [place] [address]Dr. Garima Pulliam Eosinophils/100 WBC (Bld) 2.0 % Normal 0.9-7.0 [facility] Comment on above: Performed By: #### C BC ####[facility] Ylncfhrjhy674[address] [place], [place] [address]Dr. Garima Pulliam Erythrocyte distribution width (RBC) [Ratio] 13.2 % Normal 11.0-15.0 [facility] Comment on above: Performed By: #### C BC ####[facility] Fzaitsnzjh87[address] [place], [place] [address]Dr. Garima Pulliam Hematocrit (Bld) [Volume fraction] 42.4 % Normal 42.0-54.0 [facility] Comment on above: Performed By: #### C BC ####[facility] Pwlzkauund[address] [place], [place] [address]Dr. Garima Pulliam Hemoglobin (Bld) [Mass/Vol] 14.4 g/dL Normal 14.0-18.0 [facility] Comment on above: Performed By: #### C BC ####[facility] Fuuxcdzbkj175[address] [place], [place] [address]Dr. Garima Pulliam IG # 0.04 10e3/ul Critically high 0.00-0.03 [facility] Comment on above: Performed By: #### C BC ####[facility] Aswocqdbng[address] [place], [place] [address]Dr. Garima Pulliam IG % 0.4 % Normal 0.0-0.5 [facility] Comment on above: Performed By: #### C BC ####[facility] Kupvbtqzey[address] [place], [place] [address]Dr. Garima Pulliam LYMPH # 2.2 103/ul Normal 1.2-3.8 [facility] Comment on above: Performed By: #### C BC ####[facility] Ijaztorwsb[address] [place] [address]Dr. Chapisrenu Pulliam Lymphocytes/100 WBC (Bld) 21.5 % Normal 20.5-60.0 [facility] Comment on above: Performed By: #### C BC ####[facility] Dpzijdwowq3187 [place] [address]Dr. Garima Pulliam MANUAL DIFF REQ NO Normal [facility] Comment on above: Performed By: #### C BC ####[facility] Clxirdpcba3292 [place] [address]Dr. Garima Pulliam MCH (RBC) [Entitic mass] 30.4 pg Normal 25.9-34.0 [facility] Comment on above: Performed By: #### C BC ####[facility] Ccnajnrsye5003 [place] [address]Dr. Garima Pulliam MCHC (RBC) [Mass/Vol] 34.0 g/dL Normal 29.9-35.2 [facility] Comment on above: Performed By: #### C BC ####[facility] Aqyjkrprnc11[address] [place] [address]Dr. Garima Pulliam MCV (RBC) [Entitic vol] 89.6 fL Normal 80.0-94.0 [facility] Comment on above: Performed By: #### C BC ####[facility] Cxenfkciql5507 [place] [address]Dr. Garima Pulliam MONO # 0.8 103/ul Normal 0.3-0.8 [facility] Comment on above: Performed By: #### C BC ####[facility] Jiapetifsu0568 [place] [address]Dr. Garima Pulliam Monocytes/100 WBC (Bld) 7.7 % Normal 1.7-12.0 [facility] Comment on above: Performed By: #### C BC ####[facility] Trtdgomtyi0152 [place] [address]Dr. Garima Pulliam NEUT # 7.0 103/ul Critically high 1.4-6.5 [facility] Comment on above: Performed By: #### C BC ####[facility] Ujdfpyomer7160 [place] [address]Dr. Garima Pulliam Neutrophils/100 WBC (Bld) 68.2 % Normal 43.0-75.0 [facility] Comment on above: Performed By: #### C BC ####[facility] Yfykbrnarj7140 [place] [address]Dr. Garima Pulliam Platelet mean volume (Bld) [Entitic vol] 8.9 fL Critically low 9.5-13.5 [facility] Comment on above: Performed By: #### C BC ####[facility] Meganallil8535 [place] [address]Dr. Garima Pulliam PLT 222 103/ul Normal 150-450 [facility] Comment on above: Performed By: #### C BC ####[facility] Dqnldkruhj5042 [place] [address]Dr. Garima Pulliam RBC 4.73 106/ul Normal 4.70-6.10 [facility] Comment on above: Performed By: #### C BC ####[facility] Fgbkfuzuay[address] [place], [place] [address]Dr. Garima Pulliam WBC 10.3 103/ul Normal 4.0-11.0 [facility] Comment on above: Performed By: #### C BC ####[facility] Jbuhwcmbws7689 [place] [address]DrAdalberto Pulliam PROF 14(COMP METB)on 023 Albumin [Mass/Vol] 3.7 g/dL Normal 3.4-5.0 [facility] Comment on above: Performed By: #### C MP, HSTROPN, BNP ####[facility] Foacrvzkyb1161 [place] [address]Dr. Garima Pulliam Albumin/Globulin [Mass ratio] 1.5 {ratio} Normal [facility] Comment on above: Performed By: #### C MP, HSTROPN, BNP ####[facility] Gcacmyhkck6039 [place] [address]DrAdalberto Pulliam ALP [Catalytic activity/Vol] 79 U/L Normal 46-116 [facility] Comment on above: Performed By: #### C DAVID HSTROPN, BNP ####[facility] Mcpxfhixcy2373 [place] [address]Dr. Garima Pulliam ALT [Catalytic activity/Vol] 32 U/L Normal 16-63 [facility] Comment on above: Performed By: #### C DAVID, HSTROPN, BNP ####[facility] Aetpdbwttz8546 [place] [address]Dr. Garima Pulliam Anion gap [Moles/Vol] 9.5 mmol/L Normal [facility] Comment on above: Performed By: #### C DAIVD HSTROPN, BNP ####[facility] Ijfhqzbfbv06[address] [place], [place] [address]Dr. Garima Pulliam AST [Catalytic activity/Vol] 25 U/L Normal 15-37 [facility] Comment on above: Performed By: #### C DAVID, HSTROPN, BNP ####[facility] Qnpnzddgij[address] [place], [place] [address]Dr. Garima Pulliam Bilirubin [Mass/Vol] 0.4 mg/dL Normal 0.2-1.0 [facility] Comment on above: Performed By: #### C DAVID HSTROPN, BNP ####[facility] Iwrgczlmvw[address] [place], [place] [address]Dr. Garima Pulliam Calcium [Mass/Vol] 8.9 mg/dL Normal 8.5-10.1 [facility] Comment on above: Performed By: #### C DAVID, HSTROPN, BNP ####[facility] Encmxopqlq4354 [place] [address]Dr. Garima Pulliam Chloride [Moles/Vol] 103 mmol/L Normal 98-107 [facility] Comment on above: Performed By: #### C DAVID, HSTROPN, BNP ####[facility] Flfvkpajwn5981 [place] [address]Dr. Garima Pulliam CO2 [Moles/Vol] 28.6 mmol/L Normal 21.0-32.0 [facility] Comment on above: Performed By: #### C MP, HSTROPN, BNP ####[facility] Ngazwfidym1841 [place] [address]Dr. Garima Pulliam Creatinine [Mass/Vol] 0.72 mg/dL Normal 0.70-1.30 [facility] Comment on above: Performed By: #### C MP, HSTROPN, BNP ####[facility] Tikalcbqov8271 [place] [address]Dr. Garima Pulliam EGFR-AF HAITIAN >60 Normal >=60 [facility] Comment on above: Performed By: #### C MP, HSTROPN, BNP ####[facility] Sbrfntiufe23[address] [place], [place] [address]Dr. Garima Pulliam EGFR-NON AF HAITIAN >60 Normal >=60 [facility] Comment on above: Performed By: #### C MP, HSTROPN, BNP ####[facility] Ohehidyamb35[address] [place], [place] [address]Dr. Garima Pulliam Globulin (S) [Mass/Vol] 2.5 g/dL Normal [facility] Comment on above: Performed By: #### C MP, HSTROPN, BNP ####[facility] Vkmvfckevx1968[address] [place], [place] [address]Dr. Garima Pulliam Glucose [Mass/Vol] 114 mg/dL Critically high 74-106 T [facility] Comment on above: Performed By: #### C MP, HSTROPN, BNP ####[facility] Wlbeyzcbny19[address] [place], [place] [address]Dr. Garima Pulliam Potassium [Moles/Vol] 4.1 mmol/L Normal 3.5-5.1 [facility] Comment on above: Performed By: #### C MP, HSTROPN, BNP ####[facility] Wjlowrcxeh16[address] [place], [place] [address]Dr. Garima Pulliam Protein [Mass/Vol] 6.2 g/dL Critically low 6.4-8.2 [facility] Comment on above: Performed By: #### C MP, HSTROPN, BNP ####[facility] Ncikiiitom9615 [place] [address]Dr. Garima Pulliam Sodium [Moles/Vol] 137 mmol/L Normal 136-145 [facility] Comment on above: Performed By: #### C MP, HSTROPN, BNP ####[facility] Zycrtjghei8691 [place] [address]Dr. Garima Pulliam Urea nitrogen [Mass/Vol] 13.0 mg/dL Normal 7.0-18.0 [facility] Comment on above: Performed By: #### C MP, HSTROPN, BNP ####[facility] Tnwptdnxsl8738 [place] [address]Dr. Chapisrenu Pulliam Urea nitrogen/Creatinine [Mass ratio] 18.1 mg/mg Normal [facility] Comment on above: Performed By: #### C MP, HSTROPN, BNP ####[facility] Trhvamymbt[address] [place], [place] [address]Dr. Garima Pulliam TROPONIN, HIGH SENSITIVITYon 11-27-2022 HSTROP 11.8 pg/mL Normal 4.0-76.1 [facility] Comment on above: Result Comment: CUT- OFF POINTS HAVE BEEN ESTABLISHED BASED ON THE FOURTH UNIVERSAL DEFINITIONS OF MYOCARDIALINFARCTION. THE UPPER REFERENCE LIMIT (URL) OF TROPONIN, DEFINED THE 99TH PERCENTILE OFcTnI DISTRIBUTION IN A REFERENCE POPULATION, HAS BEEN CONFIRMED THE DECISION THRESHOLDFOR [place] DIAGNOSIS. Performed By: #### C MP, HSTROPN, BNP ####[facility] Lgiekrmwah8[address] [place] [address]Dr. Garima Pulliam XR CHEST 1 Von 11-27-2022 XR CHEST 1 V Normal [facility] BNPon 11-20-2022 Natriuretic peptide B (Bld) [Mass/Vol] 73.0 pg/mL Normal <=900.0 [facility] Comment on above: Performed By: #### B MP, HSTROPN, BNP ####[facility] Lydouvmqzq[address] [place], [place] [address]Dr. Chapisrenu Pulliam CBC AUTO DIFFon 11-20-2022 BASO # 0.0 103/ul Normal 0.0-0.1 [facility] Comment on above: Performed By: #### C BC ####[facility] Acpgkqpsqg0269 [place] [id number]. Garima Pulliam Basophils/100 WBC (Bld) 0.3 % Normal 0.2-2.0 [facility] Comment on above: Performed By: #### C BC ####[facility] Ksbebgxaaw[address] [place], [place] [address]Dr. Garima Pulliam EO # 0.2 103/ul Normal 0.0-0.7 [facility] Comment on above: Performed By: #### C BC ####[facility] Bpaeivqrxd[address] [place], [place] [address]Dr. Garima Pulliam Eosinophils/100 WBC (Bld) 2.1 % Normal 0.9-7.0 [facility] Comment on above: Performed By: #### C BC ####[facility] Oeccomxbla17[address] [place], [place] [address]Dr. Garima Pulliam Erythrocyte distribution width (RBC) [Ratio] 13.2 % Normal 11.0-15.0 [facility] Comment on above: Performed By: #### C BC ####[facility] Uqniimpilz[address] [place], [place] [address]Dr. Garima Pulliam Hematocrit (Bld) [Volume fraction] 43.4 % Normal 42.0-54.0 [facility] Comment on above: Performed By: #### C BC ####[facility] Yofsextxaf[address] [place], [place] [address]Dr. Garima Pulliam Hemoglobin (Bld) [Mass/Vol] 14.6 g/dL Normal 14.0-18.0 [facility] Comment on above: Performed By: #### C BC ####[facility] Rcfmzaftli[address] [place], [place] [address]Dr. Garima Pulliam IG # 0.02 10e3/ul Normal 0.00-0.03 [facility] Comment on above: Performed By: #### C BC ####[facility] Idwdjhhoey[address] [place], [place] [address]Dr. Garima Pulliam IG % 0.2 % Normal 0.0-0.5 [facility] Comment on above: Performed By: #### C BC ####[facility] Keaszrsxrs7195 [place] [address]Dr. Chapisrenu Heraclio LYMPH # 2.1 103/ul Normal 1.2-3.8 [facility] Comment on above: Performed By: #### C BC ####[facility] Qhrptrxame3974 [place] [address]Dr. Garima Pulliam Lymphocytes/100 WBC (Bld) 19.2 % Critically low 20.5-60.0 [facility] Comment on above: Performed By: #### C BC ####[facility] Ncmabsfguj7904 [place] [address]Dr. Garima Pulliam MANUAL DIFF REQ NO Normal [facility] Comment on above: Performed By: #### C BC ####[facility] Suejzerqxf3673 [place] [address]Dr. Garima Pulliam MCH (RBC) [Entitic mass] 30.4 pg Normal 25.9-34.0 [facility] Comment on above: Performed By: #### C BC ####[facility] Wcjfpnythv9757 [place] [address]Dr. Garima Pulliam MCHC (RBC) [Mass/Vol] 33.6 g/dL Normal 29.9-35.2 [facility] Comment on above: Performed By: #### C BC ####[facility] Phflppgvqg2270 [place] [address]Dr. Garima Pulliam MCV (RBC) [Entitic vol] 90.4 fL Normal 80.0-94.0 [facility] Comment on above: Performed By: #### C BC ####[facility] Rztxagdzsz5771 [place] [address]Dr. Garima Pulliam MONO # 0.6 103/ul Normal 0.3-0.8 [facility] Comment on above: Performed By: #### C BC ####[facility] Utslpbmzyv9932 [place] [address]Dr. Garima Pulliam Monocytes/100 WBC (Bld) 5.8 % Normal 1.7-12.0 [facility] Comment on above: Performed By: #### C BC ####[facility] Cxawfkaqnj9384 [place] [address]Dr. Garima Pulliam NEUT # 7.8 103/ul Critically high 1.4-6.5 [facility] Comment on above: Performed By: #### C BC ####[facility] Xfwumlmouc7753 [place] [address]Dr. Garima Pulliam Neutrophils/100 WBC (Bld) 72.4 % Normal 43.0-75.0 [facility] Comment on above: Performed By: #### C BC ####[facility] Eioguuscay1317 [place] [address]Dr. Garima Pulliam Platelet mean volume (Bld) [Entitic vol] 8.7 fL Critically low 9.5-13.5 [facility] Comment on above: Performed By: #### C BC ####[facility] Wiulsqmdxe9853 [place] [address]Dr. Garima Pulliam PLT 184 103/ul Normal 150-450 [facility] Comment on above: Performed By: #### C BC ####[facility] Nlcqulyhqm7417 [place] [id number]. Garima Pulliam RBC 4.80 106/ul Normal 4.70-6.10 [facility] Comment on above: Performed By: #### C BC ####[facility] [address]pmc[address] [place] [id number]. Garima Pulliam WBC 10.8 103/ul Normal 4.0-11.0 [facility] Comment on above: Performed By: #### C BC ####[facility] Ovutnavovt[address] [place], [place] [id number]. Garima Pulliam Covid-19 PCR (CVDTB)on 10-24 SARS-CoV-2 (COVID-19) RNA MARIE+probe Ql (Unsp spec) Not detected Normal NOT DETECTED [facility] Comment on above: Result Comment: [...] for this test is supported by the Hospice Consultant of Health and Human Service's declaration that [...] be used). Performed By: #### C VDTB ####[facility] Qjsopcinoa[address] [place], [place] [address]Dr. Garima Pulliam INFLUENZA A AND B AGon 11-20 [facility] SEE BELOW Normal [facility] Comment on above: Result Comment: Nega tive for Flu A protein angiten. Infection due to Flu A cannot be ruled out. Flu A angiten in the sample may be below the detection limit of the test. Performed By: #### I NFLUAB ####[facility] Pgvtgvhkmp[address] [place], [place] [address]Dr. Garima Pulliam INFLUBNEG SEE BELOW Normal [facility] Comment on above: Result Comment: Nega tive for Flu B protein antigen. Infection due to Flu B cannot be ruled out. Flu B antigen in the sample may be below the detection limit of the test. Performed By: #### I NFLUAB ####[facility] Bioexyckpe232[address] [place], [place] [address]Dr. Garima Pulliam INFLUENZA A AG Negative Normal NEGATIVE SEE COMMENT [facility] Comment on above: Performed By: #### I NFLUAB ####[facility] Sbpobzgudk[address] [place], [place] [address]Dr. Garima Pulliam INFLUENZA B AG Negative Normal NEGATIVE SEE COMMENT [facility] Comment on above: Performed By: #### I NFLUAB ####[facility] Ravrdeunwn17[address] [place], [place] [address]Dr. Garima Pulliam PROF CHEM 8 (BAS METB)on Anion gap [Moles/Vol] 8.2 mmol/L Normal [facility] Comment on above: Performed By: #### B MP, HSTROPN, BNP ####[facility] L[address]tkcpixj[address] [place] [address]Dr. Garima Pulliam Calcium [Mass/Vol] 8.7 mg/dL Normal 8.5-10.1 [facility] Comment on above: Performed By: #### B MP, HSTROPN, BNP ####[facility] Itycwbmvjt[address] [place] [address]Dr. Garima Pulliam Chloride [Moles/Vol] 103 mmol/L Normal 98-107 [facility] Comment on above: Performed By: #### B MP, HSTROPN, BNP ####[facility] Yvpcmlbsqd5[address] [place] [address]Dr. Garima Pulliam CO2 [Moles/Vol] 29.4 mmol/L Normal 21.0-32.0 [facility] Comment on above: Performed By: #### B MP, HSTROPN, BNP ####[facility] Mxmuioqycn[address] [place], [place] [address]Dr. Garima Pulliam Creatinine [Mass/Vol] 0.69 mg/dL Critically low 0.70-1.30 [facility] Comment on above: Performed By: #### B MP, HSTROPN, BNP ####[facility] Ip[address]irxfzb[address] [place] [address]Dr. Garima Pulliam EGFR-AF HAITIAN >60 Normal >=60 [facility] Comment on above: Performed By: #### B MP, HSTROPN, BNP ####[facility] Xhmbqzszce[address] [place], [place] [address]Dr. Garima Pulliam EGFR-NON AF HAITIAN >60 Normal >=60 [facility] Comment on above: Performed By: #### B MP, HSTROPN, BNP ####[facility] Wtcelbxldz9[address] [place] [address]Dr. Chapisrenu Pulliam Glucose [Mass/Vol] 209 mg/dL Critically high 74-106 [facility] Comment on above: Performed By: #### B MP, HSTROPN, BNP ####[facility] Dwfznhyxup64[address] [place] [address]Dr. Garima Pulliam Potassium [Moles/Vol] 3.6 mmol/L Normal 3.5-5.1 [facility] Comment on above: Performed By: #### B MP, HSTROPN, BNP ####[facility] Lxvbnxmcyx25[address] [place] [address]Dr. Garima Pulliam Sodium [Moles/Vol] 137 mmol/L Normal 136-145 [facility] Comment on above: Performed By: #### B MP, HSTROPN, BNP ####[facility] Ddfyvtcrkd1776 [place] [address]Dr. Garima Pulliam Urea nitrogen [Mass/Vol] 11.0 mg/dL Normal 7.0-18.0 [facility] Comment on above: Performed By: #### B MP, HSTROPN, BNP ####[facility] Yjmjuodeco[address] [place] [address]Dr. Garima Pulliam Urea nitrogen/Creatinine [Mass ratio] 15.9 mg/mg Normal [facility] Comment on above: Performed By: #### B MP, HSTROPN, BNP ####[facility] Fpvsnxbpuq216[address] [place] [address]Dr. Garima Pulliam TROPONIN, HIGH SENSITIVITYon 11-20-2022 HSTROP 8.7 pg/mL Normal 4.0-76.1 [facility] Comment on above: Result Comment: CUT- OFF POINTS HAVE BEEN ESTABLISHED BASED ON THE FOURTH UNIVERSAL DEFINITIONS OF MYOCARDIALINFARCTION. THE UPPER REFERENCE LIMIT (URL) OF TROPONIN, DEFINED THE 99TH PERCENTILE OFcTnI DISTRIBUTION IN A REFERENCE POPULATION, HAS BEEN CONFIRMED THE DECISION THRESHOLDFOR OK DIAGNOSIS. Performed By: #### B MP, HSTROPN, BNP ####[facility] Utkrmnkjws4[address] [place] [address]Dr. Garima Pulliam XR CHEST 1 Von 11-20-2022 XR CHEST 1 V Normal [facility] XR CHEST 1 Von 10-02-2022 XR CHEST 1 V Normal [facility] BNPon 09-29-2022 Natriuretic peptide B (Bld) [Mass/Vol] 107.0 pg/mL Normal <=900.0 [facility] Comment on above: Performed By: #### C MP, BNP, CMADM ####[facility] Dhniaincst[address] [place] [address]Dr. Garima Pulliam CARDIAC NASH ADMITon 022 CK [Catalytic activity/Vol] 190 U/L Normal 39-308 [facility] Comment on above: Performed By: #### C MP, BNP, CMADM ####[facility] V[address]pejrcxuf13[address] [place] [address]Dr. Garima Pulliam CK.MB [Mass/Vol] 11.11 ng/mL Critically high <=3.60 [facility] Comment on above: Performed By: #### C MP, BNP, CMADM ####[facility] Mtfzplovdj6[address] [place] [address]Dr. Garima Pulliam HSTROP 11.8 pg/mL Normal 4.0-76.1 [facility] Comment on above: Result Comment: CUT- OFF POINTS HAVE BEEN ESTABLISHED BASED ON THE FOURTH UNIVERSAL DEFINITIONS OF MYOCARDIALINFARCTION. THE UPPER REFERENCE LIMIT (URL) OF TROPONIN, DEFINED THE 99TH PERCENTILE OFcTnI DISTRIBUTION IN A REFERENCE POPULATION, HAS BEEN CONFIRMED THE DECISION THRESHOLDFOR OK DIAGNOSIS. Performed By: #### C MP, BNP, CMADM ####[facility] Talcqbkrnw[address] [place] [address]Dr. Garima Pulliam DORIS 133 ng/mL Critically high 16-96 [facility] Comment on above: Performed By: #### C MP, BNP, CMADM ####[facility] Knqhpakquy[address] [place] [address]Dr. Garima Pulliam CBC AUTO DIFFon 09-29-2022 BASO # 0.0 103/ul Normal 0.0-0.1 [facility] Comment on above: Performed By: #### C BC ####[facility] Axogjelier[address] [place] [address]Dr. Garima Pulliam Basophils/100 WBC (Bld) 0.2 % Normal 0.2-2.0 [facility] Comment on above: Performed By: #### C BC ####[facility] Wphlvoiwfx63[address] [place] [address]Dr. Garima Pulliam EO # 0.1 103/ul Normal 0.0-0.7 [facility] Comment on above: Performed By: #### C BC ####[facility] Ivcaodoxze7[address] [place] [address]Dr. Garima Pulliam Eosinophils/100 WBC (Bld) 1.4 % Normal 0.9-7.0 [facility] Comment on above: Performed By: #### C BC ####[facility] Yhzfjccptv6[address] [place] [address]Dr. Garima Pulliam Erythrocyte distribution width (RBC) [Ratio] 13.7 % Normal 11.0-15.0 [facility] Comment on above: Performed By: #### C BC ####[facility] Tanysrarwr[address] [place], [place] [address]Dr. Garima Pulliam Hematocrit (Bld) [Volume fraction] 45.4 % Normal 42.0-54.0 [facility] Comment on above: Performed By: #### C BC ####[facility] Dbaveshfiy7[address] [place], [place] [address]Dr. Garima Pulliam Hemoglobin (Bld) [Mass/Vol] 14.8 g/dL Normal 14.0-18.0 [facility] Comment on above: Performed By: #### C BC ####[facility] Elgaoonbzt[address] [place], [place] [address]Dr. Garima Pulliam IG # 0.04 10e3/ul Critically high 0.00-0.03 [facility] Comment on above: Performed By: #### C BC ####[facility] Ojwjkgskun[address] [place], [place] [address]Dr. Garima Heraclio IG % 0.5 % Normal 0.0-0.5 [facility] Comment on above: Performed By: #### C BC ####[facility] Bqzjyubfgs[address] [place], [place] [address]DrAdalberto Pulliam LYMPH # 1.1 103/ul Critically low 1.2-3.8 [facility] Comment on above: Performed By: #### C BC ####[facility] Dldxyzsjom[address] [place] [address]DrAdalberto Pulliam Lymphocytes/100 WBC (Bld) 12.7 % Critically low 20.5-60.0 [facility] Comment on above: Performed By: #### C BC ####[facility] Xexbfoiccz[address] [place] [address]DrAdalberto Pulliam MANUAL DIFF REQ NO Normal [facility] Comment on above: Performed By: #### C BC ####[facility] Rywbihqrvg55[address] [place] [id number] Pulliam MCH (RBC) [Entitic mass] 30.0 pg Normal 25.9-34.0 [facility] Comment on above: Performed By: #### C BC ####[facility] Entsaqglug[address] [place], [place] [address]Dr. Garima Pulliam MCHC (RBC) [Mass/Vol] 32.6 g/dL Normal 29.9-35.2 [facility] Comment on above: Performed By: #### C BC ####[facility] Fkfufrkaph64[address] [place], [place] [address]DrAdalberto Pulliam MCV (RBC) [Entitic vol] 91.9 fL Normal 80.0-94.0 [facility] Comment on above: Performed By: #### C BC ####[facility] Fglelvkdfm[address] [place] [address]DrAdalberto Pulliam MONO # 0.4 103/ul Normal 0.3-0.8 [facility] Comment on above: Performed By: #### C BC ####[facility] Xtw[address]wn[address] [place], [place] [address]DrAdalberto Pulliam Monocytes/100 WBC (Bld) 4.8 % Normal 1.7-12.0 [facility] Comment on above: Performed By: #### C BC ####[facility] Kurxasmckh[address] [place], [place] [address]DrAdalberto Pulliam NEUT # 7.1 103/ul Critically high 1.4-6.5 [facility] Comment on above: Performed By: #### C BC ####[facility] Bwdtqqdyau[address] [place] [address]Dr. Garima Pulliam Neutrophils/100 WBC (Bld) 80.4 % Critically high 43.0-75.0 [facility] Comment on above: Performed By: #### C BC ####[facility] Obgxbiumuu8[address] [place] [address]Dr. Garima Pulliam Platelet mean volume (Bld) [Entitic vol] 9.1 fL Critically low 9.5-13.5 [facility] Comment on above: Performed By: #### C BC ####[facility] Dmyscmsjqe9678 [place] [address]Dr. Garima Pulliam PLT 200 103/ul Normal 150-450 [facility] Comment on above: Performed By: #### C BC ####[facility] Jgujpwcgve0132 [place] [address]Dr. Garima Pulliam RBC 4.94 106/ul Normal 4.70-6.10 [facility] Comment on above: Performed By: #### C BC ####[facility] Tuvwwzqbyw05[address] [place] [address]Dr. Garima Pulliam WBC 8.9 103/ul Normal 4.0-11.0 [facility] Comment on above: Performed By: #### C BC ####[facility] Knwgltlomk69[address] [place] [address]Dr. Garima Pulliam Covid-19 PCR ([facility]on SARS-CoV-2 (COVID-19) RNA MARIE+probe Ql (Unsp spec) Not detected Normal NOT DETECTED [facility] Comment on above: Result Comment: [...] for this test is supported by the Pierce of Health and Human Service's declaration that [...] be used). Performed By: #### C VDTBH ####[facility] Upezdtpzgi[address] [place] [address]Dr. Garima Pulliam LACTATE/LACTIC ACIDon 2021 Lactate [Moles/Vol] 1.7 mmol/L Normal 0.4-1.9 [facility] Comment on above: Performed By: #### L ACT ####[facility] Outehbgrov[address] [place], [place] [address]Dr. Garima Pulliam PROF 14(COMP METB)on 022 Albumin [Mass/Vol] 3.8 g/dL Normal 3.4-5.0 [facility] Comment on above: Performed By: #### C MP, BNP, CMADM ####[facility] Xtmflvxwee[address] [place] [address]Dr. Garima Pulliam Albumin/Globulin [Mass ratio] 1.5 {ratio} Normal [facility] Comment on above: Performed By: #### C MP, BNP, CMADM ####[facility] Ztigjmrhcd[address] [place], [place] [address]Dr. Garima Pulliam ALP [Catalytic activity/Vol] 62 U/L Normal 46-116 [facility] Comment on above: Performed By: #### C MP, BNP, CMADM ####[facility] Qecelvstcs[address] [place] [address]Dr. Garima Pulliam ALT [Catalytic activity/Vol] 37 U/L Normal 16-63 [facility] Comment on above: Performed By: #### C MP, BNP, CMADM ####[facility] Jqijzwdhma37[address] [place] [address]Dr. Garima Pulliam Anion gap [Moles/Vol] 8.0 mmol/L Normal [facility] Comment on above: Performed By: #### C MP, BNP, CMADM ####[facility] Kscsfjgoyw026[address] [place] [address]Dr. Garima Pulliam AST [Catalytic activity/Vol] 20 U/L Normal 15-37 [facility] Comment on above: Performed By: #### C MP, BNP, CMADM ####[facility] Aukpijhury[address] [place] [address]Dr. Garima Pulliam Bilirubin [Mass/Vol] 0.6 mg/dL Normal 0.2-1.0 [facility] Comment on above: Performed By: #### C MP, BNP, CMADM ####[facility] Cczwbyeaqa4154 [place] [address]Dr. Garima Pulliam Calcium [Mass/Vol] 9.1 mg/dL Normal 8.5-10.1 [facility] Comment on above: Performed By: #### C MP, BNP, CMADM ####[facility] Rezxcefewq23[address] [place] [address]Dr. Garima Pulliam Chloride [Moles/Vol] 103 mmol/L Normal 98-107 [facility] Comment on above: Performed By: #### C MP, BNP, CMADM ####[facility] Mptpthfrjd9207 [place] [address]Dr. Garima Pulliam CO2 [Moles/Vol] 31.8 mmol/L Normal 21.0-32.0 [facility] Comment on above: Performed By: #### C MP, BNP, CMADM ####[facility] Znhkvxenkb5805 [place] [address]Dr. Garima Pulliam Creatinine [Mass/Vol] 0.63 mg/dL Critically low 0.70-1.30 [facility] Comment on above: Performed By: #### C MP, BNP, CMADM ####[facility] Sihnnirspp4514 [place] [address]Dr. Garima Pulliam EGFR-AF HAITIAN >60 Normal >=60 [facility] Comment on above: Performed By: #### C MP, BNP, CMADM ####[facility] Jxqwkewurg[address] [place] [address]Dr. Garima Pulliam EGFR-NON AF HAITIAN >60 Normal >=60 [facility] Comment on above: Performed By: #### C MP, BNP, CMADM ####[facility] Pqozqyeyho6[address] [place] [address]Dr. Garima Pulliam Globulin (S) [Mass/Vol] 2.6 g/dL Normal [facility] Comment on above: Performed By: #### C MP, BNP, CMADM ####[facility] Riflzbpwtx2833 [place] [address]Dr. Garima Pulliam Glucose [Mass/Vol] 103 mg/dL Normal 74-106 [facility] Comment on above: Performed By: #### C MP, BNP, CMADM ####[facility] Jfmotmkkkv0864 [place] [address]Dr. Garima Pulliam Potassium [Moles/Vol] 3.8 mmol/L Normal 3.5-5.1 [facility] Comment on above: Performed By: #### C MP, BNP, CMADM ####[facility] Ujshcewkzo040[address] [place] [address]Dr. Garima Pulliam Protein [Mass/Vol] 6.4 g/dL Normal 6.4-8.2 [facility] Comment on above: Performed By: #### C MP, BNP, CMADM ####[facility] Awaakokodf[address] [place] [address]Dr. Garima Pulliam Sodium [Moles/Vol] 139 mmol/L Normal 136-145 [facility] Comment on above: Performed By: #### C MP, BNP, CMADM ####[facility] Rdeylptouz8944 [place] [address]Dr. Garima Pulliam Urea nitrogen [Mass/Vol] 7.0 mg/dL Normal 7.0-18.0 [facility] Comment on above: Performed By: #### C MP, BNP, CMADM ####[facility] Izyliyoqhg55[address] [place] [address]Dr. Garima Pulliam Urea nitrogen/Creatinine [Mass ratio] 11.1 mg/mg Normal [facility] Comment on above: Performed By: #### C MP, BNP, CMADM ####[facility] Nilxdxjybe5661 [place] [address]Dr. Chapisrenu Pulliam PROTIMEon 09-29-2022 INR Coag (PPP) [Relative time] 1.14 {INR} Normal [facility] Comment on above: Performed By: #### P T, PTT ####[facility] Kjflwhrpgn[address] [place], [place] [address]Dr. Garima Pulliam INR GUIDELINES SEE BELOW Normal [facility] Comment on above: Result Comment: WESLEY RED INR: 2.0 - 3.0 CONDITIONS NOT LISTED BELOW 2.5 - 3.5 FOR PROSTHETIC HEART VALVE REPLACEMENT 2.5 - 3.5 RECURRENT THROMBOSIS Performed By: #### P T, PTT ####[facility] Vrpcbvenpe[address] [place], [place] [address]Dr. Garima Pulliam PT Coag (PPP) [Time] 12.2 s Critically high 9.0-11.6 [facility] Comment on above: Performed By: #### P T, PTT ####[facility] Zkgqnqjiqc729[address] [place], [place] [address]Dr. Garima Pulliam PTTon 09-29-2022 aPTT Coag (Bld) [Time] 29.3 s Normal 22.3-36.2 [facility] Comment on above: Performed By: #### P T, PTT ####[facility] Umbxzixkrl86[address] [place], [place] [address]Dr. Garima Pulliam XR CHEST 1 Von 09-29-2022 XR CHEST 1 V Normal [facility] CBC AUTO DIFFon 09-26-2022 BASO # 0.0 103/ul Normal 0.0-0.1 [facility] Comment on above: Performed By: #### C BC ####[facility] Yxjslghcgp[address] [place], [place] [address]Dr. Garima Pulliam Basophils/100 WBC (Bld) 0.2 % Normal 0.2-2.0 [facility] Comment on above: Performed By: #### C BC ####[facility] Pajbvpdmgs8576 [place] [address]Dr. Garima Pulliam EO # 0.1 103/ul Normal 0.0-0.7 [facility] Comment on above: Performed By: #### C BC ####[facility] Jsxsquljmd39[address] [place], [place] [address]Dr. Garima Pulliam Eosinophils/100 WBC (Bld) 1.0 % Normal 0.9-7.0 [facility] Comment on above: Performed By: #### C BC ####[facility] Zqnsifmjzf6440[address] [place], [place] [address]Dr. Garima Pulliam Erythrocyte distribution width (RBC) [Ratio] 13.4 % Normal 11.0-15.0 [facility] Comment on above: Performed By: #### C BC ####[facility] Llwkfvbcym5[address] [place], [place] [address]Dr. Garima Pulliam Hematocrit (Bld) [Volume fraction] 46.3 % Normal 42.0-54.0 [facility] Comment on above: Performed By: #### C BC ####[facility] Bajqmovitk69[address] [place], [place] [address]Dr. Garima Pulliam Hemoglobin (Bld) [Mass/Vol] 15.3 g/dL Normal 14.0-18.0 [facility] Comment on above: Performed By: #### C BC ####[facility] Hzxnvgeboo648[address] [place], [place] [address]Dr. Garima Pulliam IG # 0.05 10e3/ul Critically high 0.00-0.03 [facility] Comment on above: Performed By: #### C BC ####[facility] Wgftdbsucr24[address] [place], [place] [address]Dr. Garima Pulliam IG % 0.4 % Normal 0.0-0.5 [facility] Comment on above: Performed By: #### C BC ####[facility] Uptngludwi95[address] [place], [place] [address]Dr. Garima Pulliam LYMPH # 1.7 103/ul Normal 1.2-3.8 [facility] Comment on above: Performed By: #### C BC ####[facility] Jdeblhdkqt3443 [place] [address]Dr. Chapisrenu Pulliam Lymphocytes/100 WBC (Bld) 12.7 % Critically low 20.5-60.0 [facility] Comment on above: Performed By: #### C BC ####[facility] Aeilnpoasj59[address] [place] [address]Dr. Chapisrenu Pulliam MANUAL DIFF REQ NO Normal [facility] Comment on above: Performed By: #### C BC ####[facility] Nmxdojniyj0469 [place] [address]Dr. Garima Pulliam MCH (RBC) [Entitic mass] 30.1 pg Normal 25.9-34.0 [facility] Comment on above: Performed By: #### C BC ####[facility] Mfyookilrj[address] [place], [place] [address]Dr. Garima Pulliam MCHC (RBC) [Mass/Vol] 33.0 g/dL Normal 29.9-35.2 [facility] Comment on above: Performed By: #### C BC ####[facility] Qfjtahjqii2[address] [place], [place] [address]Dr. Garima Pulliam MCV (RBC) [Entitic vol] 91.1 fL Normal 80.0-94.0 [facility] Comment on above: Performed By: #### C BC ####[facility] Hjdvienzgu[address] [place], [place] [address]Dr. Garima Pulliam MONO # 0.9 103/ul Critically high 0.3-0.8 [facility] Comment on above: Performed By: #### C BC ####[facility] Jmbvrccvyv99[address] [place], [place] [address]Dr. Garima Pulliam Monocytes/100 WBC (Bld) 7.0 % Normal 1.7-12.0 [facility] Comment on above: Performed By: #### C BC ####[facility] Rqjimiiutf[address] [place], [place] [address]Dr. Garima Pulliam NEUT # 10.4 103/ul Critically high 1.4-6.5 [facility] Comment on above: Performed By: #### C BC ####[facility] Jzklanftnw5144 [place] [address]Dr. Garima Pulliam Neutrophils/100 WBC (Bld) 78.7 % Critically high 43.0-75.0 [facility] Comment on above: Performed By: #### C BC ####[facility] Zhzpazxjlw2405 [place] [address]Dr. Garima Pulliam Platelet mean volume (Bld) [Entitic vol] 8.9 fL Critically low 9.5-13.5 [facility] Comment on above: Performed By: #### C BC ####[facility] Zcohedhnlj2664 [place] [address]Dr. Garima Pulliam PLT 195 103/ul Normal 150-450 [facility] Comment on above: Performed By: #### C BC ####[facility] Jvxyfganfd1458 [place] [address]Dr. Garima Pulliam RBC 5.08 106/ul Normal 4.70-6.10 [facility] Comment on above: Performed By: #### C BC ####[facility] Btopjpgcvk9709 [place] [address]Dr. Garima Pulliam WBC 13.2 103/ul Critically high 4.0-11.0 [facility] Comment on above: Performed By: #### C BC ####[facility] Phfdovtjvk9236 [place] [address]Dr. Garima Pulliam PROF 14(COMP METB)on 022 Albumin [Mass/Vol] 3.5 g/dL Normal 3.4-5.0 [facility] Comment on above: Performed By: #### C DAVID HSTROPN ####[facility] Yavqmknglo34[address] [place] [address]Dr. Garima Pulliam Albumin/Globulin [Mass ratio] 1.2 {ratio} Normal [facility] Comment on above: Performed By: #### C DAVID, HSTROPN ####[facility] Wopqrdwdav8188 [place] [address]Dr. Garima Pulliam ALP [Catalytic activity/Vol] 71 U/L Normal 46-116 [facility] Comment on above: Performed By: #### C DAVID, HSTROPN ####[facility] Zjwxykcolp4490 [place] [address]Dr. Garima Pulliam ALT [Catalytic activity/Vol] 37 U/L Normal 16-63 [facility] Comment on above: Performed By: #### C MP, HSTROPN ####[facility] Wrzrrubfsk5280 [place] [address]Dr. Garima Pulliam Anion gap [Moles/Vol] 4.8 mmol/L Normal [facility] Comment on above: Performed By: #### C MP, HSTROPN ####[facility] Odwadghhyy30[address] [place] [address]Dr. Garima Pulliam AST [Catalytic activity/Vol] 21 U/L Normal 15-37 [facility] Comment on above: Performed By: #### C DAVID, HSTROPN ####[facility] [address]zaxnzqu[address] [place], [place] [address]Dr. Garima Pulliam Bilirubin [Mass/Vol] 0.3 mg/dL Normal 0.2-1.0 [facility] Comment on above: Performed By: #### C DAVID, HSTROPN ####[facility] Ggrdxoglwu[address] [place], [place] [address]Dr. Garima Pulliam Calcium [Mass/Vol] 8.9 mg/dL Normal 8.5-10.1 [facility] Comment on above: Performed By: #### C DAVID, HSTROPN ####[facility] [address]wqkkawuk[address] [place], [place] [address]Dr. Garima Pulliam Chloride [Moles/Vol] 106 mmol/L Normal 98-107 [facility] Comment on above: Performed By: #### C MP, HSTROPN ####[facility] Vvskgaccxr[address] [place], [place] [address]Dr. Garima Pulliam CO2 [Moles/Vol] 29.8 mmol/L Normal 21.0-32.0 [facility] Comment on above: Performed By: #### C MP, HSTROPN ####[facility] Fqifoamqgf[address] [place], [place] [address]Dr. Yilan Pulliam Creatinine [Mass/Vol] 0.68 mg/dL Critically low 0.70-1.30 [facility] Comment on above: Performed By: #### C DAVID, HSTROPN ####[facility] [address] [place] [address]Dr. Garima Pulliam EGFR-AF HAITIAN >60 Normal >=60 [facility] Comment on above: Performed By: #### C DAVID, HSTROPN ####[facility] Iluwztdmeg[address] [place] [address]Dr. Garima Pulliam EGFR-NON AF HAITIAN >60 Normal >=60 [facility] Comment on above: Performed By: #### C DAVID, HSTROPN ####[facility] Sjhaedxtio[address] [place] [address]Dr. Garima Pulliam Globulin (S) [Mass/Vol] 2.8 g/dL Normal [facility] Comment on above: Performed By: #### C DAVID, HSTROPN ####[facility] [address]kw[address] [place] [address]Dr. Gariam Pulliam Glucose [Mass/Vol] 133 mg/dL Critically high 74-106 [facility] Comment on above: Performed By: #### C DAVID, HSTROPN ####[facility] Kcgyccunmh[address] [place] [address]Dr. Garima Pulliam Potassium [Moles/Vol] 3.6 mmol/L Normal 3.5-5.1 [facility] Comment on above: Performed By: #### C DAVID, HSTROPN ####[facility] Thlbdickwj[address] [place] [address]Dr. Garima Pulliam Protein [Mass/Vol] 6.3 g/dL Critically low 6.4-8.2 Th [facility] Comment on above: Performed By: #### C DAVID, HSTROPN ####[facility] Jhstmddaki5[address] [place] [address]Dr. Garima Pulliam Sodium [Moles/Vol] 137 mmol/L Normal 136-145 [facility] Comment on above: Performed By: #### C DAVID, HSTROPN ####[facility] Gifkzpkyvv15[address] [place] [id number]. Garima Pulliam Urea nitrogen [Mass/Vol] 15.0 mg/dL Normal 7.0-18.0 [facility] Comment on above: Performed By: #### C MP, HSTROPN ####[facility] Ron[address]qlxwa[address] [place] [id number]. Garima Pulliam Urea nitrogen/Creatinine [Mass ratio] 22.1 mg/mg Normal [facility] Comment on above: Performed By: #### C MP, HSTROPN ####[facility] Xhmplwogzu38[address] [place] [id number]. Garima Pulliam TROPONIN, HIGH SENSITIVITYon 09-26-2022 HSTROP 12.8 pg/mL Normal 4.0-76.1 [facility] Comment on above: Result Comment: CUT- OFF POINTS HAVE BEEN ESTABLISHED BASED ON THE FOURTH UNIVERSAL DEFINITIONS OF MYOCARDIALINFARCTION. THE UPPER REFERENCE LIMIT (URL) OF TROPONIN, DEFINED THE 99TH PERCENTILE OFcTnI DISTRIBUTION IN A REFERENCE POPULATION, HAS BEEN CONFIRMED THE DECISION THRESHOLDFOR OK DIAGNOSIS. Performed By: #### C MP, HSTROPN ####[facility] [address]xokkljz[address] [place] [address]Dr. Garima Pulliam XR CHEST 1 Von 09-26-2022 XR CHEST 1 V Normal [facility] XR CHEST 1 Von 09-16-2022 XR CHEST 1 V Normal [facility] CBC AUTO DIFFon 09-15-2022 BASO # 0.0 103/ul Normal 0.0-0.1 [facility] Comment on above: Performed By: #### C BC ####[facility] Dovyindbhd[address] [place] [id number]. Garima Heraclio Basophils/100 WBC (Bld) 0.1 % Critically low 0.2-2.0 [facility] Comment on above: Performed By: #### C BC ####[facility] Ezrurocfbo[address] [place] [address]Dr. Garima Heraclio EO # 0.0 103/ul Normal 0.0-0.7 [facility] Comment on above: Performed By: #### C BC ####[facility] Tqhozpcnkd12[address] [place] [address]Dr. Garima Pulliam Eosinophils/100 WBC (Bld) 0.1 % Critically low 0.9-7.0 [facility] Comment on above: Performed By: #### C BC ####[facility] Sjrnhyzsup47[address] [place] [address]Dr. Garima Pulliam Erythrocyte distribution width (RBC) [Ratio] 14.1 % Normal 11.0-15.0 [facility] Comment on above: Performed By: #### C BC ####[facility] Jkmmcbxsts[address] [place], [place] [address]Dr. Garima Pulliam Hematocrit (Bld) [Volume fraction] 46.1 % Normal 42.0-54.0 [facility] Comment on above: Performed By: #### C BC ####[facility] Hujfgbdzrg040[address] [place], [place] [address]Dr. Garima Pulliam Hemoglobin (Bld) [Mass/Vol] 15.0 g/dL Normal 14.0-18.0 [facility] Comment on above: Performed By: #### C BC ####[facility] Vwmdgqmxgs[address] [place], [place] [address]Dr. Garima Pulliam IG # 0.03 10e3/ul Normal 0.00-0.03 [facility] Comment on above: Performed By: #### C BC ####[facility] Ioussfqpjs9[address] [place], [place] [address]Dr. Garima Pulliam IG % 0.3 % Normal 0.0-0.5 [facility] Comment on above: Performed By: #### C BC ####[facility] Wrbtjkdxdj7[address] [place], [place] [address]Dr. Garima Pulliam LYMPH # 0.6 103/ul Critically low 1.2-3.8 The [facility] Comment on above: Performed By: #### C BC ####[facility] Vzqxnxqwhy[address] [place], [place] [address]Dr. Garima Pulliam Lymphocytes/100 WBC (Bld) 5.8 % Critically low 20.5-60.0 [facility] Comment on above: Performed By: #### C BC ####[facility] Arhicoetvb6[address] [place] [id number]. Garima Pulliam MANUAL DIFF REQ NO Normal [facility] Comment on above: Performed By: #### C BC ####[facility] Obruinblkd2558 [place] [phone]. Garima Pulliam MCH (RBC) [Entitic mass] 30.2 pg Normal 25.9-34.0 [facility] Comment on above: Performed By: #### C BC ####[facility] Fsiyowzjrs44[address] [place] [id number]. Garima Pulliam MCHC (RBC) [Mass/Vol] 32.5 g/dL Normal 29.9-35.2 [facility] Comment on above: Performed By: #### C BC ####[facility] Kzbxikvmpd[address] [place], [place] [address]Dr. Garima Pulliam MCV (RBC) [Entitic vol] 92.8 fL Normal 80.0-94.0 [facility] Comment on above: Performed By: #### C BC ####[facility] Zbvxyyvsma[address] [place], [place] [address]Dr. Garima Pulliam MONO # 0.3 103/ul Normal 0.3-0.8 [facility] Comment on above: Performed By: #### C BC ####[facility] Lnwjsmaewg8[address] [place], [place] [address]Dr. Garima Pulliam Monocytes/100 WBC (Bld) 3.2 % Normal 1.7-12.0 [facility] Comment on above: Performed By: #### C BC ####[facility] Ayinixodul224[address] [place], [place] [address]Dr. Garima Pulliam NEUT # 9.8 103/ul Critically high 1.4-6.5 [facility] Comment on above: Performed By: #### C BC ####[facility] Glhlekvegl[address] [place], [place] [address]Dr. Garima Pulliam Neutrophils/100 WBC (Bld) 90.5 % Critically high 43.0-75.0 [facility] Comment on above: Performed By: #### C BC ####[facility] Kkpdpewvlo70[address] [place] [address]Dr. Garima Pulliam Platelet mean volume (Bld) [Entitic vol] 9.4 fL Critically low 9.5-13.5 [facility] Comment on above: Performed By: #### C BC ####[facility] Kvwsfzpacq28[address] [place] [address]Dr. Garima Pulliam PLT 208 103/ul Normal 150-450 [facility] Comment on above: Performed By: #### C BC ####[facility] Piyufauvjn558[address] [place], [place] [address]Dr. Garima Pulliam RBC 4.97 106/ul Normal 4.70-6.10 [facility] Comment on above: Performed By: #### C BC ####[facility] Barhbmlrkr[address] [place], [place] [address]Dr. Garima Pulliam WBC 10.8 103/ul Normal 4.0-11.0 [facility] Comment on above: Performed By: #### C BC ####[facility] Pssszlfsiy7[address] [place], [place] [address]Dr. Garima Pulliam PROF 14(COMP METB)on 022 Albumin [Mass/Vol] 4.0 g/dL Normal 3.4-5.0 [facility] Comment on above: Performed By: #### C MP ####[facility] Jnmtawihsr8[address] [place], [place] [address]Dr. Garima Pulliam Albumin/Globulin [Mass ratio] 1.5 {ratio} Normal [facility] Comment on above: Performed By: #### C MP ####[facility] Eyjmfgfzzk6[address] [place], [place] [address]Dr. Garima Pulliam ALP [Catalytic activity/Vol] 73 U/L Normal 46-116 [facility] Comment on above: Performed By: #### C MP ####[facility] Vecynkdkje84[address] [place], [place] [address]Dr. Garima Pulliam ALT [Catalytic activity/Vol] 42 U/L Normal 16-63 [facility] Comment on above: Performed By: #### C MP ####[facility] E[address]cvxjunnm[address] [place] [address]Dr. Garima Pulliam Anion gap [Moles/Vol] 9.1 mmol/L Normal [facility] Comment on above: Performed By: #### C MP ####[facility] Dfhjbokpcm5072 [place] [address]Dr. Garima Pulliam AST [Catalytic activity/Vol] 28 U/L Normal 15-37 [facility] Comment on above: Performed By: #### C MP ####[facility] Lfgloupeap6221 [place] [address]Dr. Garima Pulliam Bilirubin [Mass/Vol] 0.6 mg/dL Normal 0.2-1.0 [facility] Comment on above: Performed By: #### C MP ####[facility] Tezukothnp9[address] [place], [place] [address]Dr. Garima Pulliam Calcium [Mass/Vol] 8.6 mg/dL Normal 8.5-10.1 [facility] Comment on above: Performed By: #### C MP ####[facility] Cxqkbjyoxq216[address] [place], [place] [address]Dr. Garima Pulliam Chloride [Moles/Vol] 105 mmol/L Normal 98-107 [facility] Comment on above: Performed By: #### C MP ####[facility] Ppgfbhdzpy[address] [place], [place] [address]Dr. Garima Pulliam CO2 [Moles/Vol] 28.5 mmol/L Normal 21.0-32.0 [facility] Comment on above: Performed By: #### C MP ####[facility] Eznstqdppc[address] [place], [place] [address]Dr. Garima Pulliam Creatinine [Mass/Vol] 0.78 mg/dL Normal 0.70-1.30 [facility] Comment on above: Performed By: #### C MP ####[facility] Guuobkwnac[address] [place] [address]Dr. Garima Pulliam EGFR-AF HAITIAN >60 Normal >=60 [facility] Comment on above: Performed By: #### C MP ####[facility] Mzgetvibsb7[address] [place] [address]Dr. Garima Pulliam EGFR-NON AF HAITIAN >60 Normal >=60 [facility] Comment on above: Performed By: #### C MP ####[facility] Svysvlcmvf[address] [place] [address]Dr. Garima Pulliam Globulin (S) [Mass/Vol] 2.7 g/dL Normal [facility] Comment on above: Performed By: #### C MP ####[facility] Rqacjldezt14[address] [place] [address]Dr. Garima Pulliam Glucose [Mass/Vol] 220 mg/dL Critically high 74-106 T [facility] Comment on above: Performed By: #### C MP ####[facility] Tvndmfpufm[address] [place], [place] [address]Dr. Garima Pulliam Potassium [Moles/Vol] 3.6 mmol/L Normal 3.5-5.1 [facility] Comment on above: Performed By: #### C MP ####[facility] Wrtgsftzwz86[address] [place], [place] [address]Dr. Garima Pulliam Protein [Mass/Vol] 6.7 g/dL Normal 6.4-8.2 [facility] Comment on above: Performed By: #### C MP ####[facility] Hybhjmtgki47[address] [place], [place] [address]Dr. Garima Pulliam Sodium [Moles/Vol] 139 mmol/L Normal 136-145 [facility] Comment on above: Performed By: #### C MP ####[facility] Xiavfqaukm5511[address] [place], [place] [address]Dr. Garima Pulliam Urea nitrogen [Mass/Vol] 11.0 mg/dL Normal 7.0-18.0 [facility] Comment on above: Performed By: #### C MP ####[facility] Tsehmvvpjk64[address] [place], [place] [address]Dr. Garima Pulliam Urea nitrogen/Creatinine [Mass ratio] 14.1 mg/mg Normal [facility] Comment on above: Performed By: #### C MP ####[facility] [address]lb[address] [place], [place] [address]Dr. Garima Pulliam CARDIAC NASH 3-6on 2 CK [Catalytic activity/Vol] 240 U/L Normal 39-308 [facility] Comment on above: Performed By: #### C MREP ####[facility] Kdxkrcawcp2457 [place], [place] [address]Oa. Garima Pulliam CK.MB [Mass/Vol] 10.38 ng/mL Critically high <=3.60 [facility] Comment on above: Performed By: #### C MREP ####[facility] Ktzfsskhte[address] [place] [address]Dr. Garima Pulliam HSTROP 18.5 pg/mL Normal 4.0-76.1 [facility] Comment on above: Result Comment: CUT- OFF POINTS HAVE BEEN ESTABLISHED BASED ON THE FOURTH UNIVERSAL DEFINITIONS OF MYOCARDIALINFARCTION. THE UPPER REFERENCE LIMIT (URL) OF TROPONIN, DEFINED THE 99TH PERCENTILE OFcTnI DISTRIBUTION IN A REFERENCE POPULATION, HAS BEEN CONFIRMED THE DECISION THRESHOLDFOR OK DIAGNOSIS. Performed By: #### C MREP ####[facility] Zxlacvruhs39[address] [place] [id number]. Garima Pulliam CK [Catalytic activity/Vol] 257 U/L Normal 39-308 [facility] Comment on above: Performed By: #### C MREP ####[facility] Ndafawbxta4034 [place] [address]Dr. Garima Pulliam CK.MB [Mass/Vol] 9.89 ng/mL Critically high <=3.60 [facility] Comment on above: Performed By: #### C MREP ####[facility] Svcnjsgeoj6803 [place] [address]Dr. Garima Pulliam HSTROP 16.9 pg/mL Normal 4.0-76.1 [facility] Comment on above: Result Comment: CUT- OFF POINTS HAVE BEEN ESTABLISHED BASED ON THE FOURTH UNIVERSAL DEFINITIONS OF MYOCARDIALINFARCTION. THE UPPER REFERENCE LIMIT (URL) OF TROPONIN, DEFINED THE 99TH PERCENTILE OFcTnI DISTRIBUTION IN A REFERENCE POPULATION, HAS BEEN CONFIRMED THE DECISION THRESHOLDFOR OK DIAGNOSIS. Performed By: #### C MREP ####[facility] Qqpjbkohnp4483 [place] [address]Dr. Garima Pulliam CBC AUTO DIFFon 09-13-2022 BASO # 0.0 103/ul Normal 0.0-0.1 [facility] Comment on above: Performed By: #### C BC ####[facility] Qtlmwbaepi125[address] [place], [place] [address]Dr. Chapisrenu Pulliam Basophils/100 WBC (Bld) 0.1 % Critically low 0.2-2.0 [facility] Comment on above: Performed By: #### C BC ####[facility] Ueshfgphpo15[address] [place], [place] [address]Dr. Chapisrenu Pulliam EO # 0.0 103/ul Normal 0.0-0.7 [facility] Comment on above: Performed By: #### C BC ####[facility] Mieylzthyj12[address] [place], [place] [address]Dr. Chapisrenu Pulliam Eosinophils/100 WBC (Bld) 0.0 % Critically low 0.9-7.0 [facility] Comment on above: Performed By: #### C BC ####[facility] Ttgvemnvcj00[address] [place], [place] [address]Dr. Chapisrenu Pulliam Erythrocyte distribution width (RBC) [Ratio] 13.6 % Normal 11.0-15.0 [facility] Comment on above: Performed By: #### C BC ####[facility] Vvcsfwvulp[address] [place], [place] [address]Dr. Garima Pulliam Hematocrit (Bld) [Volume fraction] 48.2 % Normal 42.0-54.0 [facility] Comment on above: Performed By: #### C BC ####[facility] Eaaoaqprwu13[address] [place], [place] [address]Dr. Chapisrenu Pulliam Hemoglobin (Bld) [Mass/Vol] 16.0 g/dL Normal 14.0-18.0 [facility] Comment on above: Performed By: #### C BC ####[facility] Uozfnjbvch[address] [place], [place] [address]Dr. Garima Pulliam IG # 0.02 10e3/ul Normal 0.00-0.03 [facility] Comment on above: Performed By: #### C BC ####[facility] Ephauupgds3078 [place] [address]Dr. Garima Pulliam IG % 0.3 % Normal 0.0-0.5 [facility] Comment on above: Performed By: #### C BC ####[facility] Rqmcszmddk5550 [place] [address]Dr. Garima Heraclio LYMPH # 0.5 103/ul Critically low 1.2-3.8 [facility] Comment on above: Performed By: #### C BC ####[facility] Lrvgnkttqe3621 [place] [address]Dr. Chapisrenu Pulliam Lymphocytes/100 WBC (Bld) 7.7 % Critically low 20.5-60.0 [facility] Comment on above: Performed By: #### C BC ####[facility] Jhmwddhvga38[address] [place] [address]Dr. Garima Pulliam MANUAL DIFF REQ NO Normal [facility] Comment on above: Performed By: #### C BC ####[facility] Jvhckomcvj1418 [place] [address]Dr. Garima Pulliam MCH (RBC) [Entitic mass] 30.6 pg Normal 25.9-34.0 [facility] Comment on above: Performed By: #### C BC ####[facility] Epxjawknso6858 [place] [address]Dr. Garima Heraclio MCHC (RBC) [Mass/Vol] 33.2 g/dL Normal 29.9-35.2 [facility] Comment on above: Performed By: #### C BC ####[facility] Pctxpaviev4711 [place] [address]Dr. Garima Pulliam MCV (RBC) [Entitic vol] 92.2 fL Normal 80.0-94.0 [facility] Comment on above: Performed By: #### C BC ####[facility] Sguaiviluy[address] [place], [place] [address]Dr. Garima Pulliam MONO # 0.0 103/ul Critically low 0.3-0.8 [facility] Comment on above: Performed By: #### C BC ####[facility] Ixibsetzpt3076 [place] [address]Dr. Garima uPlliam Monocytes/100 WBC (Bld) 0.4 % Critically low 1.7-12.0 [facility] Comment on above: Performed By: #### C BC ####[facility] Lbyvzxpozm9981 [place] [address]Dr. Garima Pulliam NEUT # 6.2 103/ul Normal 1.4-6.5 [facility] Comment on above: Performed By: #### C BC ####[facility] Udglxyzugs0670 [place] [address]Dr. Garima Pulliam Neutrophils/100 WBC (Bld) 91.5 % Critically high 43.0-75.0 [facility] Comment on above: Performed By: #### C BC ####[facility] Sdxdevpnbg1343 [place] [address]Dr. Garima Pulliam Platelet mean volume (Bld) [Entitic vol] 8.7 fL Critically low 9.5-13.5 [facility] Comment on above: Performed By: #### C BC ####[facility] Graeyzhygs[address] [place], [place] [address]Dr. Garima Pulliam PLT 179 103/ul Normal 150-450 [facility] Comment on above: Performed By: #### C BC ####[facility] Jsuzmjmrdd9657 [place] [address]Dr. Garima Pulliam RBC 5.23 106/ul Normal 4.70-6.10 [facility] Comment on above: Performed By: #### C BC ####[facility] Gywppzobgk7871 [place] [address]Dr. Garima Pulliam WBC 6.7 103/ul Normal 4.0-11.0 [facility] Comment on above: Performed By: #### C BC ####[facility] Gqqrfvmfog[address] [place], [place] [address]DrAdalberto Garima Heraclio PROF CHEM 8 (BAS METB)on Anion gap [Moles/Vol] 12.1 mmol/L Normal Th [facility] Comment on above: Performed By: #### B MP ####[facility] Blxjicuamr6472 [place] [address]Dr. Garima Pulliam Calcium [Mass/Vol] 8.7 mg/dL Normal 8.5-10.1 [facility] Comment on above: Performed By: #### B MP ####[facility] Rdqkcwdwkz2455 [place] [address]Dr. Garima Pulliam Chloride [Moles/Vol] 105 mmol/L Normal 98-107 [facility] Comment on above: Performed By: #### B MP ####[facility] Ukxregydvx4970 [place] [address]Dr. Garima Pulliam CO2 [Moles/Vol] 25.5 mmol/L Normal 21.0-32.0 [facility] Comment on above: Performed By: #### B MP ####[facility] Fssbomaloj[address] [place], [place] [address]Dr. Garima Pulliam Creatinine [Mass/Vol] 0.63 mg/dL Critically low 0.70-1.30 [facility] Comment on above: Performed By: #### B MP ####[facility] Jzzqrxecuq3407 [place] [address]Dr. Garima Pulliam EGFR-AF HAITIAN >60 Normal >=60 [facility] Comment on above: Performed By: #### B MP ####[facility] Ripzdfraup4054 [place] [address]Dr. Garima Pulliam EGFR-NON AF HAITIAN >60 Normal >=60 [facility] Comment on above: Performed By: #### B MP ####[facility] Pmghwdzoyv9827 [place] [address]Dr. Garima Pulliam Glucose [Mass/Vol] 162 mg/dL Critically high 74-106 [facility] Comment on above: Performed By: #### B MP ####[facility] Tstsqpokjr1625 [place] [address]Dr. Garima Pulliam Potassium [Moles/Vol] 3.6 mmol/L Normal 3.5-5.1 [facility] Comment on above: Performed By: #### B MP ####[facility] Sywxwvspkp2543 [place] [address]Dr. Garima Pulliam Sodium [Moles/Vol] 139 mmol/L Normal 136-145 [facility] Comment on above: Performed By: #### B MP ####[facility] Cqeubswwkv9800 [place] [address]Dr. Garima Heraclio Urea nitrogen [Mass/Vol] 9.0 mg/dL Normal 7.0-18.0 [facility] Comment on above: Performed By: #### B MP ####[facility] Dajjziomwu9819 [place] [address]Dr. Garima Pulliam Urea nitrogen/Creatinine [Mass ratio] 14.3 mg/mg Normal [facility] Comment on above: Performed By: #### B DAVID ####[facility] Tpawbmxqkl50[address] [place] [address]Dr. Garima Pulliam CARDIAC NASH ADMITon 022 CK [Catalytic activity/Vol] 304 U/L Normal 39-308 [facility] Comment on above: Performed By: #### B DAVID, NANCY ####[facility] Mgusljcjeg3825 [place] [address]Dr. Garima Pulliam CK.MB [Mass/Vol] 11.81 ng/mL Critically high <=3.60 Th [facility] Comment on above: Performed By: #### B DAVID, NANCY ####[facility] Hkzfyxdwwc5941 [place] [address]Dr. Chapisrenu Pulliam HSTROP 13.3 pg/mL Normal 4.0-76.1 [facility] Comment on above: Result Comment: CUT- OFF POINTS HAVE BEEN ESTABLISHED BASED ON THE FOURTH UNIVERSAL DEFINITIONS OF MYOCARDIALINFARCTION. THE UPPER REFERENCE LIMIT (URL) OF TROPONIN, DEFINED THE 99TH PERCENTILE OFcTnI DISTRIBUTION IN A REFERENCE POPULATION, HAS BEEN CONFIRMED THE DECISION THRESHOLDFOR [place] DIAGNOSIS. Performed By: #### B DAVID, CMADM ####[facility] Umljckvhki8396 [place] [address]Dr. Garima Pulliam DORIS 133 ng/mL Critically high 16-96 [facility] Comment on above: Performed By: #### B ERVIN HERNANDEZDM ####[facility] Bbbpvgrjpg2065 [place] [id number]. Garima Heraclio CBC AUTO DIFFon 09-12-2022 BASO # 0.0 103/ul Normal 0.0-0.1 [facility] Comment on above: Performed By: #### C BC ####[facility] Kpyufejfag5598 [place] [id number]. Chapisrenu Pulliam Basophils/100 WBC (Bld) 0.2 % Normal 0.2-2.0 [facility] Comment on above: Performed By: #### C BC ####[facility] Yhinsjmcmm504[address] [place], [place] [address]Dr. Chapisrenu Pulliam EO # 0.2 103/ul Normal 0.0-0.7 [facility] Comment on above: Performed By: #### C BC ####[facility] Syvcnaucif6423[address] [place], [place] [address]Dr. Chapisrenu Pulliam Eosinophils/100 WBC (Bld) 1.3 % Normal 0.9-7.0 [facility] Comment on above: Performed By: #### C BC ####[facility] Ynvxqjclub62[address] [place], [place] [address]Dr. Garima Heraclio Erythrocyte distribution width (RBC) [Ratio] 13.7 % Normal 11.0-15.0 [facility] Comment on above: Performed By: #### C BC ####[facility] Bsmrrizxzi5[address] [place], [place] [address]Dr. Garima Heraclio Hematocrit (Bld) [Volume fraction] 46.4 % Normal 42.0-54.0 [facility] Comment on above: Performed By: #### C BC ####[facility] Olsijpnekp[address] [place], [place] [address]Dr. Chapisrenu Pulliam Hemoglobin (Bld) [Mass/Vol] 15.7 g/dL Normal 14.0-18.0 [facility] Comment on above: Performed By: #### C BC ####[facility] Qhrrvokfie[address] [place], [place] [address]Dr. Garima Pulliam IG # 0.04 10e3/ul Critically high 0.00-0.03 [facility] Comment on above: Performed By: #### C BC ####[facility] Bzqxbtnduh1483 [place] [id number] Chapisrenu Pulliam IG % 0.3 % Normal 0.0-0.5 [facility] Comment on above: Performed By: #### C BC ####[facility] [facility] [id number] [place] [id number] Pulliam LYMPH # 1.7 103/ul Normal 1.2-3.8 [facility] Comment on above: Performed By: #### C BC ####[facility] [address] [place] [id number] Pulliam Lymphocytes/100 WBC (Bld) 11.5 % Critically low 20.5-60.0 [facility] Comment on above: Performed By: #### C BC ####[facility] [address] [place] [address]DrAdalberto Pulliam MANUAL DIFF REQ NO Normal [facility] Comment on above: Performed By: #### C BC ####[facility] [address] [place] [id number] Garima Heraclio MCH (RBC) [Entitic mass] 31.0 pg Normal 25.9-34.0 [facility] Comment on above: Performed By: #### C BC ####[facility] [address] [place] [id number] Chapisrenu Pulliam MCHC (RBC) [Mass/Vol] 33.8 g/dL Normal 29.9-35.2 [facility] Comment on above: Performed By: #### C BC ####[facility] Xt[address] [place] [id number] Chapisrenu Pulliam MCV (RBC) [Entitic vol] 91.7 fL Normal 80.0-94.0 [facility] Comment on above: Performed By: #### C BC ####[facility] [address] [place] [id number] Pulliam MONO # 0.8 103/ul Normal 0.3-0.8 [facility] Comment on above: Performed By: #### C BC ####[facility] [address] [place] [id number]. Garima Pulliam Monocytes/100 WBC (Bld) 5.2 % Normal 1.7-12.0 [facility] Comment on above: Performed By: #### C BC ####[facility] [address] [place] [id number]. Garima Pulliam NEUT # 11.7 103/ul Critically high 1.4-6.5 [facility] Comment on above: Performed By: #### C BC ####[facility] [address] [place] [address]Dr. Garima Pulliam Neutrophils/100 WBC (Bld) 81.5 % Critically high 43.0-75.0 [facility] Comment on above: Performed By: #### C BC ####[facility] [address] [place] [address]Dr. Garima Pulliam Platelet mean volume (Bld) [Entitic vol] 8.6 fL Critically low 9.5-13.5 [facility] Comment on above: Performed By: #### C BC ####[facility] [address] [place], [place] [address]Dr. Garima Pulliam PLT 191 103/ul Normal 150-450 [facility] Comment on above: Performed By: #### C BC ####[facility] [address] [place] [id number]. Garima Pulliam RBC 5.06 106/ul Normal 4.70-6.10 [facility] Comment on above: Performed By: #### C BC ####[facility] [address] [place] [id number]. Garima Pulliam WBC 14.4 103/ul Critically high 4.0-11.0 [facility] Comment on above: Performed By: #### C BC ####[facility] [address] [place] [id number]. Garima Pulliam Cov[facility]-19 [facility] ([facility]on 08-24 SARS-CoV-2 (COVID-19) RNA MARIE+probe Ql (Unsp spec) Not detected Normal NOT DETECTED [facility] Comment on above: Result Comment: [...] for this test is supported by the Hospice Consultant of Health and Human Service's declaration that [...] be used). Performed By: #### C VDTBH ####[facility] [address] [place] [address]Dr. Garima Pulliam LACTATE/LACTIC ACIDon 2021 Lactate [Moles/Vol] 1.0 mmol/L Normal 0.4-1.9 [facility] Comment on above: Performed By: #### L ACT ####[facility] [address] [place] [address]Dr. Garima Pulliam PROF CHEM 8 (BAS METB)on Anion gap [Moles/Vol] 11.6 mmol/L Normal [facility] Comment on above: Performed By: #### B MP, CMADM ####[facility] [address] [place] [address]Dr. Garima Pulliam Calcium [Mass/Vol] 9.2 mg/dL Normal 8.5-10.1 [facility] Comment on above: Performed By: #### B MP, CMADM ####[facility] [address] [place] [address]Dr. Garima Pulliam Chloride [Moles/Vol] 105 mmol/L Normal 98-107 [facility] Comment on above: Performed By: #### B DAVID, CMADM ####[facility] [address] [place] [address]Dr. Garima Pulliam CO2 [Moles/Vol] 25.9 mmol/L Normal 21.0-32.0 [facility] Comment on above: Performed By: #### B DAVID, CMADM ####[facility] [address] [place] [address]Dr. Garima Pulliam Creatinine [Mass/Vol] 0.72 mg/dL Normal 0.70-1.30 [facility] Comment on above: Performed By: #### B DAVID, CMADM ####[facility] [address] [place] [address]Dr. Garima Pulliam EGFR-AF HAITIAN >60 Normal >=60 [facility] Comment on above: Performed By: #### B DAVID, CMADM ####[facility] [address] [place] [address]Dr. Garima Pulliam EGFR-NON AF HAITIAN >60 Normal >=60 [facility] Comment on above: Performed By: #### B DAVID, CMADM ####[facility] [address] [place] [address]Dr. Garima Pulliam Glucose [Mass/Vol] 111 mg/dL Critically high 74-106 [facility] Comment on above: Performed By: #### B DAVID, CMADM ####[facility] [address] [place] [address]Dr. Garima Pulliam Potassium [Moles/Vol] 3.5 mmol/L Normal 3.5-5.1 [facility] Comment on above: Performed By: #### B DAVID, CMADM ####[facility] [address] [place] [address]Dr. Garima Pulliam Sodium [Moles/Vol] 139 mmol/L Normal 136-145 [facility] Comment on above: Performed By: #### B DAVID, CMADM ####[facility] [address] [place] [address]Dr. Garima Pulliam Urea nitrogen [Mass/Vol] 7.0 mg/dL Normal 7.0-18.0 [facility] Comment on above: Performed By: #### B NANCY HERNANDEZ ####[facility] [address] [place], [place] [address]Qv. Garima Heraclio Urea nitrogen/Creatinine [Mass ratio] 9.7 mg/mg Normal [facility] Comment on above: Performed By: #### B DAVID, NANCY ####[facility] [address] [place], [place] [address]Du. Garima Pulliam XR CHEST 1 Von 09-12-2022 XR CHEST 1 V Normal [facility] Encounters Encounter Date Encounter Type Care Provider [...] Facility:[facility] Payers Date Payer Category Payer Unknown [id number] 1960 Medicaid [id number] 1960 Unknown [id number] 1960 Unknown [id number] 1955 Unknown [id number] 2.16.84 0.1.391420.3.579.2.593 1954 Unknown [id number] 2.16.84 0.1.164379.3.579.2.593 1954 Unknown [id number] 2.16.84 0.1.219030.3.579.2.593 1954 Unknown [id number] 2.16.84 0.1.302899.3.579.2.593 1954 Unknown [id number] 2.16.84 0.1.161745.3.579.2.593 1954 Unknown [id number] 2.16.84 0.1.564264.3.579.2.593 1954 Unknown [id number] 2.16.84 0.1.650539.3.579.2.593 1954 Unknown [id number] 2.16.84 0.1.275699.3.579.2.593 1954 Unknown [id number] 2.16.84 0.1.713151.3.579.2.593 1954 Unknown [id number] 2.16.84 0.1.261131.3.579.2.593 1954 Unknown [id number] 2.16.84 0.1.867440.3.579.2.593 1954 Unknown [id number] 2.16.84 0.1.352170.3.579.2.593 1954 Unknown [id number] 2.16.84 0.1.962301.3.579.2.593 1954 Unknown [id number] 2.16.84 0.1.910012.3.579.2.593 1954 Unknown [id number] 2.16.84 0.1.761960.3.579.2.593 1954 Unknown [id number] 2.16.84 0.1.107249.3.579.2.593 1954 Unknown [id number] 2.16.84 0.1.982723.3.579.2.593 1954 Unknown [id number] 2.16.84 0.1.588453.3.579.2.593 1954 Unknown [id number] 2.16.84 0.1.384936.3.579.2.593 1954 Unknown [id number] 2.16.84 0.1.241288.3.579.2.593 Summary Purpose Family History No Family History Records Found Advance Directives No Advanced Directives Records Found Additional Source Comments (unrecognized sect ion and content) No Status Records Found INFORMATION SOURCE (unrecogn ized section and content) DATE CREATED AUTHOR 04/08/2023 [facility] FOR RECORDS PERTAINING TO PATIENTS WHO [...] BE BASED ON THE PRIMARY CLINICAL RECORDS. [facility]. provides no warranty or guarantee of the accuracy or completeness of information in this document.
[2024-01-29 07:01] LABS: C Reactive Protein <0.50 mg/dL (<=0.50)
[2024-01-29] MEDS: LEVOFLOXACIN IN DEXTROSE 5 % 750 MG/150 ML IV.SOLN 100 MG IV (07:02)
[2024-01-29] MEDS: CEFTRIAXONE 1,000 MG in 0.9 % SODIUM CHLORIDE 50 ML 100 MG IV (07:03)
[2024-01-29 07:06] LABS: Erythrocyte Sedimentation Rate <1 mm/hr (<=20)
[2024-01-29 07:07] LABS: Magnesium 1.8 mg/dL (1.8-2.4)
[2024-01-29 07:29] LABS: Glucometer 160 mg/dL (74-106)
[2024-01-29] MEDS: HYDRALAZINE HCL 25 MG TABLET PO ×2 (08:15→20:52)
[2024-01-29] MEDS: LOSARTAN POTASSIUM 50 MG TABLET 100 MG PO (08:15)
[2024-01-29] MEDS: OMEPRAZOLE 20 MG CAPSULE.DR PO (08:15)
[2024-01-29] MEDS: INSULIN ASPART 300 UNIT/3 ML PEN SUBQ ×3 (08:15→16:39)
[2024-01-29] MEDS: 0.9 % SODIUM CHLORIDE 1,000 ML 125 ML IV ×2 (08:16→16:39)
[2024-01-29] MEDS: ALBUTEROL SULFATE 2.5 MG/3 ML VIAL NEB IH (08:57)
--- NOTE | 2024-01-29 09:07 | US_ITS ---
[address] [address] Patient Name: CONSTANZA BARRETO MRN: [id number] date: 1955 Sex: M Assigned Patient Location: [place] Current Patient Location: [place] Accession/Order Number: [id number] Exam Date: 01/29/2024 12:45 Report Date: 01/29/2024 14:06 At the request of: DOMI RÍOS Procedure: US venous doppler LE BI EXAM: US venous doppler LE BI HISTORY: edema COMPARISON: None. TECHNIQUE: Bilateral duplex compression ultrasound deep veins vein groin to feet lateral right and left. Saphenous vein groin and calf area. FINDINGS: Right leg: Deep veins well visualized with normal color flow and compressibility. Visualized saphenous veins are compressible with normal flow without thrombus. No thrombus or occlusion seen. Subcutaneous edema noted without dominant fluid collection. Left leg: Deep veins and saphenous veins are well visualized, demonstrate normal color flow and compressibility without thrombus or occlusion. Subcutaneous edema noted. US/US venous doppler LE BI IMPRESSION: Negative for DVT or saphenous vein thrombus right leg or left leg. Bilateral leg subcutaneous edema. Electronically authenticated by: MARIA ELENA JERONIMO Date: 01/29/2024 14:06
--- NOTE | 2024-01-29 09:10 | P.HP_ITS ---
HPI H&P: HPI History of Present Illness Chief complaint: SOB HYPERGLYCEMIA COPD EXACERBATION Narrative: Presented to the emergency room with more shortness of breath. He has usual exacerbation of COPD for which she uses the emergency room as his PCP office. He was treated and released. Patient returned back to the emergency room with some more shortness of breath persisting but peripheral edema as well. In ER found to have some mild acute respiratory distress but bilateral lower extremity edema and sugars well over 400. With the edema and and severe hyperglycemia patient is admitted for IV therapy. When I saw patient up in the room, his breathing seemed fairly comfortable, is mostly concerned about his legs and eating breakfast. Opioid HPI Opioid Management Most Recent Opioid Data: Last Pain Assessment 01/29/24 09:15 Last ORT Total Score 0 01/29/24 06:36 Last ORT Risk Category Low Risk 01/29/24 06:36 [facility] Medical History (Updated 01/29/24 @ 09:18 by Melecio Trammell MD) Community acquired pneumonia ?J18.9 - Pneumonia, unspecified organism (ICD-10) Chronic obstructive pulmonary disease ?J44.9 - Chronic obstructive pulmonary disease, unspecified (ICD-10) Acute exacerbation of chronic obstructive pulmonary disease (COPD) ?J44.1 - Chronic obstructive pulmonary disease with (acute) exacerbation (ICD-10) RLL pneumonia ?J18.9 - Pneumonia, unspecified organism (ICD-10) COPD (chronic obstructive pulmonary disease) ?J44.9 - Chronic obstructive pulmonary disease, unspecified (ICD-10) Surgical History (Updated 01/29/24 @ 06:45 by Latonia Martin RN) Hx of tonsillectomy ?Z90.89 - Acquired absence of other organs (ICD-10) Family History (Updated 12/25/23 @ 21:28 by Kym Ordaz) Mother Family history of cancer Family history of hypertension Father Family history of cancer Social History Within the past year, how often did you have a drink containing alcohol: 4 or more times a week Within the past year, how many standard drinks containing alcohol did you have on a typical day: 3 or 4 Within the past year, how often did you have six or more drinks on one occasion: less than monthly Total score: 3 Score interpretation: A score of 4 or more indicates drinking is likely to affect patient's safety. Smoking status: Current every day smoker Non-prescribed substance use: cannabis (any form) Previous occupational history: retired Highest level of school completed/degree received: high school graduate Are you now , , , , never or living with a partner: In a typical week, how many times do you talk on the telephone with family, friends, or neighbors: twice per week How often do you get together with friends or relatives: once per week How often do you attend baptism or restorationism services: never Do you belong to any clubs or organizations such as baptism groups unions, [employer] or athletic groups, or school groups: no Total score: 1 Score interpretation: A score of less than or equal to 1 indicates the most socially isolated. Little interest or pleasure in doing things: several days Feeling down, depressed, or hopeless: not at all Feel stressed/tense/nervous/anxious/difficulty sleeping: not at all Do you think of yourself as: straight/heterosexual Gender Identity: male Meds Home Medications and Allergies Home Medications Medication Instructions Recorded Confirmed Type omeprazole 20 mg capsule,delayed 20 mg PO DAILY 10/22/23 01/29/24 History release albuterol sulfate 2.5 mg/3 mL 2.5 mg inhalation Q6H PRN 11/02/23 01/29/24 History (0.083 %) solution for nebulization shortness of breath or wheezing albuterol sulfate 90 mcg/actuation 2 inh inhalation Q6H PRN shortness 12/17/23 01/29/24 Rx aerosol inhaler of breath or wheezing #8.5 grams fluticasone 250 mcg-salmeterol 50 1 inh inhalation BID 12/25/23 01/29/24 History mcg/dose blistr powdr for inhalation (Wixela Inhub) tiotropium bromide 2.5 2 inh inhalation BID 12/25/23 01/29/24 History mcg/actuation mist for inhalation (Spiriva Respimat) losartan 100 mg tablet 100 mg PO DAILY #30 tabs 12/27/23 01/29/24 Rx Allergies Allergy/AdvReac Type Severity Reaction Status Date / Time No Known Drug Allergies Allergy Verified 01/29/24 02:30 Exam Constitutional Vital Signs, click to edit/add: Last Vital Signs Temp 97.8 F 01/29/24 06:26 Pulse 96 H 01/29/24 09:00 Resp 20 01/29/24 06:26 BP 187/79 H 01/29/24 06:43 Pulse Ox 95 01/29/24 09:00 O2 Del Method Room Air 01/29/24 09:00 Documenting provider has reviewed patient's vital signs: yes Common normals: no apparent distress HENMT Common normals: normocephalic and head/scalp atraumatic Chest Common normals: inspection of chest normal and palpation of chest normal Respiratory Common normals: normal respiratory effort and no retractions Auscultation: rhonchi, wheezes and diminished lung sounds Cardio Common normals: regular rate and regular rhythm GI Common normals: Normal to inspection, nondistended, normoactive bowel sounds present Extremity Common normals: abnormal to inspection (3+ edema bilateral lower extremities with erythema and calor) Results Labs Labs: Short CBC 01/29/24 Range/Units 03:50 WBC 10.4 (4.0-11.0) 10^3/uL Hgb 13.5 L (14.0-18.0) g/dL Hct 42.0 (42.0-54.0) % Plt Count 212 (150-450) 10^3/uL BMP 01/29/24 03:02 Sodium 139 Potassium 3.7 Chloride 104 Carbon Dioxide 29.7 BUN 11.0 Creatinine 0.84 Glucose 438 H Calcium 9.4 Liver Function 01/29/24 Range/Units 03:02 Total Bilirubin 0.5 (0.2-1.0) mg/dL AST 16 (15-37) U/L ALT 38 (16-63) U/L Alkaline Phosphatase 89 (46-116) U/L Albumin 3.7 (3.4-5.0) g/dL Assessment and Plan Assessment and Plan (1) Acute hyperglycemia: (2) COPD exacerbation: (3) COPD with acute exacerbation: (4) Edema: Plan Uncontrolled hypertension with acute exacerbation of COPD-aerosol treatments, holding off on steroids secondary to severe hyperglycemia, prior to obtaining sputum culture, IV antibiotics. Mqehajmohjgem-aftczj-uryggqc states he has not been told he is a diabetic but does not have a PCP and has been using the emergency room as his PCP office. In review of sugars back to September almost all of them are consistent with diabetes. Will start patient on 1800-calorie diet, start metformin 500 mg twice a day, diabetic teaching. Insulin sliding scale. Peripheral edema-legs with erythema and calor consistent with bilateral lower extremity cellulitis versus DVT. Check ultrasound. On antibiotics for the above. 1 dose of IV Lasix. May need recurrent doses starting tomorrow based on results Uncontrolled hypertension-add hydralazine, history of COPD may improve respiratory status compared to beta-rudy Iron deficiency anemia-monitor as an outpatient and daily GERD-continue with home medications Most patient offered observational status, his lungs are bad but probably not worse than baseline, treatment As above is most likely treated over the first 24 hours.
--- NOTE | 2024-01-29 09:27 | CM.NOTE ---
Rounds made with Dr. Trammell. Ultrasound of bilat legs to be ordered and explained to Mr. DelongRikcy per Dr. Trammell. Dr. Trammell also explained need for Diabetic Education and current need for 1800 calorie diet.
[2024-01-29] MEDS: FUROSEMIDE 40 MG/4 ML VIAL 60 MG IVP (10:36)
--- NOTE | 2024-01-29 11:33 | SWNOTE1 ---
TAISHA met with pt to discuss dc needs. Pt lives at home by himself, he uses a cane at times. Pt does still drive, grocery store, etc. he is not homebound. SW asked pt about his funds and having enough money to buy his medications. Pt voiced he gets social security monthly. He voiced his issue is that he lends money out and does not get paid back. He stated he is done doing this and is going to take care of himself. Pt voices he has no needs at discharge at this time. TAISHA asked if he was able to find a PCP. He stated he has not made any calls yet, but he lost the paper. TAISHA provided the PCP list to pt. He had to use restroom, TAISHA to stop back in to see if he chose one.
[2024-01-29 11:34] LABS: Glucometer 183 mg/dL (74-106)
[2024-01-29] MEDS: BUDESONIDE 0.5 MG/2 ML AMPULE NEB IH ×2 (11:40→20:00)
--- NOTE | 2024-01-29 12:27 | SWNOTE1 ---
Pt would like to use Mese[facility] Hussein for follow up PCP. SW called over, but office was closed for lunch. SW to call back at 1:00.
--- NOTE | 2024-01-29 14:27 | SWNOTE1 ---
TAISHA was able to schedule follow up appointment with Meseret Hussein on 02/02/24 at 9:15. TAISHA notified pt and nursing, SW put in pt's discharge follow up appointments.
[2024-01-29 16:37] LABS: Glucometer 229 mg/dL (74-106)
[2024-01-29] MEDS: METFORMIN HCL 500 MG TABLET PO (16:38)
--- NOTE | 2024-01-29 16:56 | DIETREC ---
Recommend MVI w/minerals 1x daily d/t micronutrient deficiencies. Pt refused diabetic education; notified physician.
[2024-01-29 20:47] LABS: Glucometer 87 mg/dL (74-106)
[2024-01-30] MEDS: 0.9 % SODIUM CHLORIDE 1,000 ML 125 ML IV (00:37)
[2024-01-30 02:30] VITALS: PULSE 88; RESP 22; O2SAT 93
[2024-01-30] MEDS: ALBUTEROL SULFATE 2.5 MG/3 ML VIAL NEB IH (02:30)
[2024-01-30 04:00] VITALS: BP 175/73; PULSE 64; RESP 18; TEMP 36.7; O2SAT 90
[2024-01-30 04:55] VITALS: PULSE 69; RESP 16; O2SAT 95
[2024-01-30] MEDS: IPRATROPIUM/ALBUTEROL SULFATE 3 ML AMPUL.NEB IH ×2 (04:55→10:16)
[2024-01-30 05:03] LABS: PCO2 VBG 42.3 mmHg (40.0-52.0); pH VBG 7.459 (7.330-7.430)
[2024-01-30 05:12] LABS: Basophils Percent Auto 0.3 % (0.2-2.0); Eosinophils Absolute Auto 0.2 10^3/uL (0.0-0.7); Hematocrit 40.1 % (42.0-54.0); Immature Granulocytes Abs Auto 0.06 10^3/uL (0.00-0.03); Immature Granulocytes Pct Auto 0.5 % (0.0-0.5); Lymphocytes Absolute Auto 2.5 10^3/uL (1.2-3.8); Lymphocytes Percent Auto 21.2 % (20.5-60.0); Mean Corpuscular HGB Conc 32.4 g/dL (29.9-35.2); Mean Corpuscular Hemoglobin 29.7 pg (25.9-34.0); Mean Corpuscular Volume 91.8 fL (80.0-94.0); Mean Platelet Volume 9.2 fL (9.5-13.5); Monocytes Absolute Auto 0.9 10^3/uL (0.3-0.8); Neutrophils Absolute Auto 7.9 10^3/uL (1.4-6.5); Platelet Count 208 10^3/uL (150-450); Red Blood Count 4.37 10^6/uL (4.70-6.10); Red Cell Distribution Width 14.2 % (11.0-15.0); White Blood Count 11.6 10^3/uL (4.0-11.0)
[2024-01-30] MEDS: HYDRALAZINE HCL 20 MG/ML VIAL 10 MG IVP (05:15)
[2024-01-30 05:23] LABS: Erythrocyte Sedimentation Rate <1 mm/hr (<=20)
[2024-01-30 05:33] LABS: Alanine Aminotransferase 30 U/L (16-63); Albumin Globulin Ratio 1.4; Albumin Level 3.1 g/dL (3.4-5.0); Alkaline Phosphatase 60 U/L (46-116); Anion Gap 7.9; Aspartate Amino Transferase 16 U/L (15-37); BUN Creatinine Ratio 18.2; Bilirubin Total 0.7 mg/dL (0.2-1.0); Calcium 8.5 mg/dL (8.5-10.1); Chloride 103 mmol/L (98-107); Estimated GFR (African America >60 (>=60); Estimated GFR (Non-African Ame >60 (>=60); Globulin 2.2 g/dL; Glucose 117 mg/dL (74-106); Sodium 138 mmol/L (136-145); Total Protein 5.3 g/dL (6.4-8.2)
[2024-01-30] MEDS: LEVOFLOXACIN IN DEXTROSE 5 % 750 MG/150 ML IV.SOLN 100 MG IV (05:51)
[2024-01-30] MEDS: OMEPRAZOLE 20 MG CAPSULE.DR PO (05:51)
[2024-01-30 05:54] LABS: C Reactive Protein <0.50 mg/dL (<=0.50)
[2024-01-30 05:56] LABS: Potassium 2.9 mmol/L (3.5-5.1)
--- NOTE | 2024-01-30 07:20 | PC.NURSE ---
0215- pt put on the call light stating, I need my damn nurse right now. RN in to assist patient. Pt stated he could not breathe. pt pulse ox was 93% on RA, RN placed patient on 1 L nasal cannula for comfort. pt had new fine crackles in the posterior bases of the lungs bilaterally and diminished in the upper lobes. IV fluids were paused at this time. respiratory therapist came to see the patient and administered a PRN breathing treatment. night physician notified and responded to continue to monitor patient. 0245- pt stated that his breathing was easier and denied needs at this time.
[2024-01-30 08:30] VITALS: BP 170/86; PULSE 102; RESP 18; TEMP 36.8; O2SAT 90
[2024-01-30] MEDS: POTASSIUM CHLORIDE 10 MEQ ER TABLET 40 MEQ PO (08:40)
[2024-01-30] MEDS: CARVEDILOL 12.5 MG TABLET PO (08:41)
[2024-01-30] MEDS: HYDRALAZINE HCL 25 MG TABLET PO (08:41)
[2024-01-30] MEDS: METHYLPREDNISOLONE SOD SUCC PF 40 MG/ML VIAL IVP (08:41)
[2024-01-30] MEDS: LOSARTAN POTASSIUM 50 MG TABLET 100 MG PO (08:41)
[2024-01-30] MEDS: METFORMIN HCL 500 MG TABLET PO (08:41)
[2024-01-30] MEDS: POTASSIUM CHLORIDE 40 MEQ in 0.9 % SODIUM CHLORIDE 250 ML 67.5 MEQ IV (08:41)
[2024-01-30] MEDS: FUROSEMIDE 40 MG/4 ML VIAL IVP (08:41)
[2024-01-30] MEDS: BUDESONIDE 0.5 MG/2 ML AMPULE NEB IH (10:16)
[2024-01-30 10:19] VITALS: PULSE 62; O2SAT 95
--- NOTE | 2024-01-30 10:44 | PM.DS1 ---
DS: Providers Provider Date of admission: 01/29/24 06:28 Primary care physician: Non-Staff Physician, Consults: 01/29/24 06:26 Consult to Director Of Retention Routine Reason for consultation: ?new onset dm Has provider been notified: No DS: Diagnosis Discharge Diagnosis (1) COPD with acute exacerbation: Assessment and plan: Feeling better today. On room air. Stable for discharge on by mouth prednisone. Continue with albuterol as needed. He is also on Spiriva and Winlexa Will benefit from simplifying his regimen with a triple drug inhaler but will defer to his new PCP who is establish/scheduled to see as outpatient. (2) Acute hyperglycemia: Assessment and plan: due to T2 DM , new diagnosis along with steroids use. (3) New onset type 2 diabetes mellitus: Assessment and plan: A1C 8, New diagnosis. Will d/c on PO metformin. Defer to PCP for further care (4) HTN (hypertension): Assessment and plan: Poorly controlled but this could be due to steroids use too. Defer to PCP. Cw Losartan for now. Qualifiers: Hypertension type: primary hypertension Qualified Code(s): I10 - Essential (primary) hypertension (5) Lower extremity edema: Assessment and plan: Possibly from steroids and may very well have underlying congestive HF. Will benefit from outpatient ECHO He received lasix for it and his edema improved a little with lasix. (6) Tobacco abuse: Assessment and plan: Educated and counseled on smoking cessation (7) Hypokalemia: Assessment and plan: given 40 PO and 40 IV potassium. DS: Summary Hospital Course Hospital Course: Patient presented with worsening SOB, cough along with LE edema and was admitted for COPD exacerbation, and hyperglycemia. He was treated with IV steroids, duonebs and clinically improved during the course of admission. He was also found to have new onset T2 DM. Patient was seen today and while he still had wheezing on exm, he felt comfortable from resp point of view and denies SOB at rest and on exertion. He was also given a dose of lasix during hospital stay with some improvement in his LE edema. He is stable for d/c on PO prednisone, metformin. Time spent discussing smoking cessation with patient: 3 to 10 minutes Status at Discharge Functional status at discharge: independent ambulation Overall status at discharge: patient is back to baseline Time Spent with Patient Time attestation: Total time spent providing and/or coordinating discharge services: Time spent: greater than 30 minutes Exam Constitutional Vital Signs, click to edit/add: Last Vital Signs Temp 98.2 F 01/30/24 08:30 Pulse 62 01/30/24 10:19 Resp 18 01/30/24 08:30 BP 170/86 H 01/30/24 08:30 Pulse Ox 95 01/30/24 10:19 O2 Del Method Room Air 01/30/24 10:19 O2 Flow Rate 1 01/30/24 04:55 Documenting provider has reviewed patient's vital signs: yes Common normals: no apparent distress General appearance: cooperative and comfortable HENMT Common normals: normocephalic and head/scalp atraumatic Respiratory Common normals: normal respiratory effort and no use of accessory muscles Auscultation: wheezes expiratory wheezes and throughout Other: prolonged exp phase Cardio Common normals: no JVD, regular rate, regular rhythm, S1 normal heart sound and S2 normal heart sound Extremity General: edema Neuro Common normals: oriented x3, CN's II-XII intact bilaterally, moves all extremities and no focal motor deficits Psych Common normals: mental status grossly normal, thought process normal, cooperative, affect normal and speech normal DS: Data Data Completed and Pending Labs on day of discharge: Labs from last 24 hours 01/30/24 01/29/24 01/29/24 04:15 20:46 16:36 WBC 11.6 H RBC 4.37 L Hgb 13.0 L Hct 40.1 L MCV 91.8 MCH 29.7 MCHC 32.4 RDW 14.2 Plt Count 208 MPV 9.2 L Neut % (Auto) 68.0 Lymph % (Auto) 21.2 [place] % (Auto) 8.0 Eos % (Auto) 2.0 Baso % (Auto) 0.3 Neut # (Auto) 7.9 H Lymph # (Auto) 2.5 [place] # (Auto) 0.9 H Eos # (Auto) 0.2 Baso # (Auto) 0.0 Abs Immat Gran (auto) 0.06 H Imm/Tot Granulo (auto) 0.5 ESR <1 VBG pH 7.459 H VBG pCO2 42.3 Sodium 138 Potassium 2.9 L* Chloride 103 Carbon Dioxide 30.0 Anion Gap 7.9 BUN 12.0 Creatinine 0.66 L Est GFR ( Amer) >60 Est GFR (Non-Af Amer) >60 BUN/Creatinine Ratio 18.2 Glucose 117 H Calcium 8.5 Total Bilirubin 0.7 AST 16 ALT 30 Alkaline Phosphatase 60 C-Reactive Protein <0.50 Total Protein 5.3 L Albumin 3.1 L Globulin 2.2 Albumin/Globulin Ratio 1.4 POC Glucose 87 229 H 01/29/24 11:33 WBC RBC Hgb Hct MCV MCH MCHC RDW Plt Count MPV Neut % (Auto) Lymph % (Auto) [place] % (Auto) Eos % (Auto) Baso % (Auto) Neut # (Auto) Lymph # (Auto) [place] # (Auto) Eos # (Auto) Baso # (Auto) Abs Immat Gran (auto) Imm/Tot Granulo (auto) ESR VBG pH VBG pCO2 Sodium Potassium Chloride Carbon Dioxide Anion Gap BUN Creatinine Est GFR ( Amer) Est GFR (Non-Af Amer) BUN/Creatinine Ratio Glucose Calcium Total Bilirubin AST ALT Alkaline Phosphatase C-Reactive Protein Total Protein Albumin Globulin Albumin/Globulin Ratio POC Glucose 183 H Discharge Plan Discharge Disposition: Home, Self-Care Condition: Good Discharge Medications: New prednisone 20 mg tablet 20 mg PO DAILY 9 Days Qty: 18 0RF Rx Instructions: Use 3 tab x 3 day, 2 tabs x 3 days. 1 tab x 3 days potassium chloride 20 mEq tablet extended release 20 meq PO DAILY Qty: 7 0RF metformin 500 mg tablet 500 mg PO BID Qty: 60 0RF Continued omeprazole 20 mg capsule,delayed release(DR/EC) 20 mg PO DAILY albuterol sulfate 2.5 mg /3 mL (0.083 %) solution for nebulization 2.5 mg inhalation Q6H PRN (Reason: shortness of breath or wheezing) Spiriva Respimat 2.5 mcg/actuation mist 2 inh inhalation BID fluticasone propion-salmeterol [Wixela Inhub] 250-50 mcg/dose blister with device 1 inh inhalation BID losartan 100 mg tablet 100 mg PO DAILY Qty: 30 11RF albuterol sulfate 90 mcg/actuation HFA aerosol inhaler 2 inh inhalation Q6H PRN (Reason: shortness of breath or wheezing) Qty: 8.5 2RF Activity: increase activity as tolerated Diet: advance to your usual diet Patient Instructions: COPD (Chronic Obstructive Pulmonary Disease) (DC), Diabetic Hyperglycemia (DC) Forms: Portal Instructions Follow Up Appointments: Follow up appointment with Meseret Hussein on 02/02/2024 @ 9:15am, please bring insurance card and ID. Phone number: [phone] Address: [address] [place] [address]
[2024-01-30 11:02] LABS: Estimated Average Glucose 183 mg/dL
[2024-01-30 11:34] LABS: Glucometer 189 mg/dL (74-106)
--- NOTE | 2024-02-01 13:44 | CM.DCFOLLOWU ---
01/31- 1st attempt. No answer
--- NOTE | 2024-02-02 14:50 | CM.DCFOLLOWU ---
02/01- 2nd attempt. No answer
== END 2024-01-30 12:14 | disposition home or self-care (01) ==
LOC: ER 06:27 → MS 06:31
PROVIDERS: Family Medicine; Nurse Practitioner Acute Care; Admitting Provider Internal Medicine; Emergency Provider Emergency Medicine; Visit Provider Internal Medicine
DX: J44.1 Chronic obstructive pulmonary disease with (acute) exacerbation (principal); E11.65 Type 2 diabetes mellitus with hyperglycemia; I10 Essential (primary) hypertension; E87.6 Hypokalemia; R60.9 Edema, unspecified; D50.9 Iron deficiency anemia, unspecified; K21.9 Gastro-esophageal reflux disease without esophagitis; Z79.899 Other long term (current) drug therapy; F17.210 Nicotine dependence, cigarettes, uncomplicated; Z87.01 Personal history of pneumonia (recurrent); Z90.89 Acquired absence of other organs
CPT/HCPCS: 36415; 71046; 80053; 82800; 82948; 83036; 83735; 83880; 84436; 84443; 84484; 85025; 85652; 86140; 93005; 93970; 94640; 94667; 94668; 94761; 96365; 96366; 96368; 96375; 96376; 99285; G0378; J2920; J3480

== ENCOUNTER 2024-01-31 14:32 | Emergency (ER) | payer MEDICARE, SELFPAY ==
[2024-01-31 14:37] VITALS: BP 167/89; PULSE 88; RESP 18; TEMP 37; O2SAT 96; BMI 24.9
--- OUTSIDE RECORDS SUMMARY | 2024-01-31 14:39 | XMS_ITS | CCD ---
Author Name Unknown Address [address] [facility] [address] [place] [address] Organization [facility] Care Team Providers Care Patient Access Name Role Phone REQUEST, DR NONE LISTED [...] LISTED Primary Care Unavaila ble DIAB ., MTICH Consulting Unavailable DIAB ., MITCH Admitting Unavailable [...] Unavaila ble TAVARES, KENTRELL Consulting Unavailable TAVARES, KENTERLL Admitting Unavailable TAVARES, KENTRELL Attending Unavailable REQUEST, [...] ., PALMIRA FOX Consulting Unavailabl e REGINALDO LCUIO Consulting Unavailable SISTER, SIMONE Consulting Unavailable AIMEE ., MARIYA Consulting Unavailable Allergies Allergy Classification Reported Allergen(s) Allergy Type Date of Onset Reaction(s) Facility (1 source) Penicillin Drug Allergy [facility] Repository Problems Active Problems Problem Classification [...] 03-27-2023 Episodic Other aftercare (1 source) Other intermission coordinator (current) drug therapy; Translations: [OTH SNF CURRENT DRUG THERAPY] Onset: 04-07-2023 Episodic Other [...] BASO # 0.0 103/ul Normal 0.0-0.[address] [facility] Comment on above: Performed By: #### C BC ####[facility] Fkcjdhkwci[address] [place], [place] [address]Fq. Garima Pulliam Basophils/100 WBC (Bld) 0.3 % Normal 0.2-2.[address] [facility] Comment on above: Performed By: #### C BC ####[facility] Dfrabldzpk8573 [place], [place] [address]YpAdalberto Pulliam EO # 0.3 103/ul Normal 0.0-0.[address] [facility] Comment on above: Performed By: #### C BC ####[facility] Pmskvsqwqy88[address] [place] [id number]. Garima Pulliam Eosinophils/100 WBC (Bld) 2.8 % Normal 0.9-7.[address] [facility] Comment on above: Performed By: #### C BC ####[facility] Xhqcvevbyn9427 [place] [address]Dr. Garima Pulliam Erythrocyte distribution width (RBC) [Ratio] 13.4 % Normal 11.0-15.[address] [facility] Comment on above: Performed By: #### C BC ####[facility] Nbzgpuulpc[address] [place], [place] [address]Dr. Garima Pulliam Hematocrit (Bld) [Volume fraction] 45.7 % Normal 42.0-54.0 [facility] Comment on above: Performed By: #### C BC ####[facility] Abkkxziwek[address] [place], [place] [address]Dr. Garima Pulliam Hemoglobin (Bld) [Mass/Vol] 15.2 g/dL Normal 14.0-18.[address] [facility] Comment on above: Performed By: #### C BC ####[facility] Bytobaupcf[address] [place], [place] [address]Dr. Garima Pulliam IG # 0.02 10e3/ul Normal 0.00-0.[address] [facility] Comment on above: Performed By: #### C BC ####[facility] Ejvrasidbz639[address] [place], [place] [address]Dr. Garima Pulliam IG % 0.2 % Normal 0.0-0.[address] [facility] Comment on above: Performed By: #### C BC ####[facility] Kolcqtusrn8[address] [place], [place] [address]Dr. Garima Pulliam LYMPH # 2.1 103/ul Normal 1.2-3.[address] [facility] Comment on above: Performed By: #### C BC ####[facility] Ptrdekmpgx4[address] [place], [place] [address]Dr. Garima Pulliam Lymphocytes/100 WBC (Bld) 23.7 % Normal 20.5-60.[address] [facility] Comment on above: Performed By: #### C BC ####[facility] Lyptqyrscg5595 [place] [id number]. Garima Pulliam MANUAL DIFF REQ NO Normal [facility] Comment on above: Performed By: #### C BC ####[facility] Hwvtftxhpt0161 [place] [id number]. Garima Pulliam MCH (RBC) [Entitic mass] 30.4 pg Normal 25.9-34.[address] [facility] Comment on above: Performed By: #### C BC ####[facility] Geyvkveq[address] [place], [place] [id number]. Garima Pulliam MCHC (RBC) [Mass/Vol] 33.3 g/dL Normal 29.9-35.2 [facility] Comment on above: Performed By: #### C BC ####[facility] Awtswyeuoe09[address] [place], [place] [address]Dr. Garima Pulliam MCV (RBC) [Entitic vol] 91.4 fL Normal 80.0-94.0 [facility] Comment on above: Performed By: #### C BC ####[facility] Dhafdyuhzf[address] [place], [place] [address]Dr. Garima Pulliam MONO # 0.7 103/ul Normal 0.3-0.[address] [facility] Comment on above: Performed By: #### C BC ####[facility] Tnxrltkuhn44[address] [place], [place] [address]Dr. Chapisrenu Pulliam Monocytes/100 WBC (Bld) 8.3 % Normal 1.7-12.[address] [facility] Comment on above: Performed By: #### C BC ####[facility] Llnvdthgbu[address] [place], [place] [address]Dr. Garima Pulliam NEUT # 5.8 103/ul Normal 1.4-6.[address] [facility] Comment on above: Performed By: #### C BC ####[facility] Jorokdvyqa1213[address] [place], [place] [address]Dr. Garima Pulliam Neutrophils/100 WBC (Bld) 64.7 % Normal 43.0-75.[address] [facility] Comment on above: Performed By: #### C BC ####[facility] Uqxseidpjh0969 [place] [id number]. Garima Pulliam Platelet mean volume (Bld) [Entitic vol] 8.6 fL Critically low 9.5-13.5 [facility] Comment on above: Performed By: #### C BC ####[facility] Vmvgmmrdrm9814 [place] [address]Dr. Garima Pulliam PLT 230 103/ul Normal 150-[address] [facility] Comment on above: Performed By: #### C BC ####[facility] Rlrhpsjawu0971 [place] [address]Dr. Garima Pulliam RBC 5.00 106/ul Normal 4.70-6.10 [facility] Comment on above: Performed By: #### C BC ####[facility] Evaphyalnd9927 [place] [address]Dr. Garima Pulliam WBC 9.0 103/ul Normal 4.0-11.[address] [facility] Comment on above: Performed By: #### C BC ####[facility] Iuvvhyeobj8913[address] [place], [place] [address]Dr. Garima Pulliam MAGNESIUMon 04-04-2023 Magnesium [Mass/Vol] 1.8 mg/dL Normal 1.8-2.4 [facility] Comment on above: Performed By: #### M G ####[facility] Mevixecccv0512[address] [place], [place] [address]Dr. Garima Pulliam PROF 14(COMP METB)on 023 Albumin [Mass/Vol] 3.8 g/dL Normal 3.4-5.0 [facility] Comment on above: Performed By: #### C MP ####[facility] Urxusizoxv5675[address] [place], [place] [address]Dr. Garima Pulliam Albumin/Globulin [Mass ratio] 1.2 {ratio} Normal [facility] Comment on above: Performed By: #### C MP ####[facility] Rtuzyssqvy7823 [place] [address]Dr. Garima Pulliam ALP [Catalytic activity/Vol] 84 U/L Normal 46-116 [facility] Comment on above: Performed By: #### C MP ####[facility] Asbslyexpn6492 [place] [id number]. Garima Pulliam ALT [Catalytic activity/Vol] 31 U/L Normal 16-63 [facility] Comment on above: Performed By: #### C MP ####[facility] Wdzutavokw1750 [place] [id number]. Garima Pulliam Anion gap [Moles/Vol] 12.2 mmol/L Normal Th [facility] Comment on above: Performed By: #### C MP ####[facility] Peiqsqbcys6333 [place] [id number]. Garima Pulliam AST [Catalytic activity/Vol] 23 U/L Normal 15-37 [facility] Comment on above: Performed By: #### C MP ####[facility] Kpwbkgmjso[address] [place], [place] [address]Dr. Garima Pulliam Bilirubin [Mass/Vol] 0.5 mg/dL Normal 0.2-1.0 [facility] Comment on above: Performed By: #### C MP ####[facility] Kgfyuizlnf01[address] [place], [place] [address]Dr. Garima Pulliam Calcium [Mass/Vol] 9.2 mg/dL Normal 8.5-10.1 [facility] Comment on above: Performed By: #### C MP ####[facility] Iatiauhhax90[address] [place], [place] [address]Dr. Garima Pulliam Chloride [Moles/Vol] 103 mmol/L Normal 98-107 [facility] Comment on above: Performed By: #### C MP ####[facility] Eailezxwtw[address] [place], [place] [address]Dr. Garima Pulliam CO2 [Moles/Vol] 28.5 mmol/L Normal 21.0-32.0 [facility] Comment on above: Performed By: #### C MP ####[facility] Jqizprtsfn[address] [place], [place] [address]Dr. Garima Pulliam Creatinine [Mass/Vol] 0.74 mg/dL Normal 0.70-1.30 [facility] Comment on above: Performed By: #### C MP ####[facility] Eotofmgcdx9245 [place] [id number]. Garima Pulliam EGFR-AF OMANI >60 Normal >=60 [facility] Comment on above: Performed By: #### C MP ####[facility] Pfirdulhgv2240 [place] [id number]. Garima Pulliam EGFR-NON AF OMANI >60 Normal >=[address] [facility] Comment on above: Performed By: #### C MP ####[facility] Zawdijyzmh4107 [place] [address]Dr. Garima Pulliam Globulin (S) [Mass/Vol] 3.1 g/dL Normal [facility] Comment on above: Performed By: #### C MP ####[facility] Qkjtromgko0350 [place] [address]Dr. Garima Pulliam Glucose [Mass/Vol] 93 mg/dL Normal 74-106 [facility] Comment on above: Performed By: #### C MP ####[facility] Wjdzjzznip0261 [place] [address]Dr. Garima Pulliam Potassium [Moles/Vol] 3.7 mmol/L Normal 3.5-5.[address] [facility] Comment on above: Performed By: #### C MP ####[facility] Coueqgwqkg5396 [place] [address]Dr. Garima Pulliam Protein [Mass/Vol] 6.9 g/dL Normal 6.4-8.2 [facility] Comment on above: Performed By: #### C MP ####[facility] Ytdndzkzyb7129 [place] [address]Dr. Garima Pulliam Sodium [Moles/Vol] 140 mmol/L Normal 136-145 [facility] Comment on above: Performed By: #### C MP ####[facility] Stmzjkqsqe1029 [place] [address]Dr. Garima Pulliam Urea nitrogen [Mass/Vol] 8.0 mg/dL Normal 7.0-18.[address] [facility] Comment on above: Performed By: #### C MP ####[facility] Crrlipzrqm2902 [place] [address]Dr. Garima Pulliam Urea nitrogen/Creatinine [Mass ratio] 10.8 mg/mg Normal [facility] Comment on above: Performed By: #### C MP ####[facility] Crzexsebfn5583 [place] [address]Dr. Garima Pulliam AMMONIAon 03-30-2023 Ammonia (P) [Moles/Vol] 11 umol/L Normal 11-[address] [facility] Comment on above: Performed By: #### A MM ####[facility] Cykpgourfk[address] [place], [place] [address]Dr. Chapisrenu Pulliam CARDIAC NASH ADMITon 023 CK [Catalytic activity/Vol] 232 U/L Normal 39-[address] [facility] Comment on above: Performed By: #### C DAVID, CMADM ####[facility] Hlywicxkig30[address] [place], [place] [address]Dr. Chapisrenu Pulliam CK.MB [Mass/Vol] 4.83 ng/mL Critically high <=3.[address] [facility] Comment on above: Performed By: #### C DAVID, CMADM ####[facility] Pblwicqmmg7217[address] [place], [place] [address]Dr. Garima Pulliam HSTROP 10.5 pg/mL Normal 4.0-76.[address] [facility] Comment on above: Result Comment: CUT- OFF POINTS HAVE BEEN ESTABLISHED BASED ON THE FOURTH UNIVERSAL DEFINITIONS OF MYOCARDIALINFARCTION. THE UPPER REFERENCE LIMIT (URL) OF TROPONIN, DEFINED THE 99TH PERCENTILE OFcTnI DISTRIBUTION IN A REFERENCE POPULATION, HAS BEEN CONFIRMED THE DECISION THRESHOLDFOR WI DIAGNOSIS. Performed By: #### C DAVID, CMADM ####[facility] Verjdmnvci9081 [place] [address]Dr. Chapisrenu Pulliam DORIS 79 ng/mL Normal 16-[address] [facility] Comment on above: Performed By: #### C DAVID, CMADM ####[facility] Mtmsxwnqih[address] [place], [place] [address]Dr. Chapisrenu Pulliam CBC AUTO DIFFon 03-30-2023 BASO # 0.0 103/ul Normal 0.0-0.[address] [facility] Comment on above: Performed By: #### C BC ####[facility] Nqmyayckce4243 [place] [id number]. Garima Pulliam Basophils/100 WBC (Bld) 0.1 % Critically low 0.2-2.[address] [facility] Comment on above: Performed By: #### C BC ####[facility] Lnqoxjonga70[address] [place], [place] [address]Dr. Garima Pulliam EO # 0.3 103/ul Normal 0.0-0.[address] [facility] Comment on above: Performed By: #### C BC ####[facility] Bzlnqcpfbz0014[address] [place], [place] [address]Dr. Garima Pulliam Eosinophils/100 WBC (Bld) 3.3 % Normal 0.9-7.[address] [facility] Comment on above: Performed By: #### C BC ####[facility] Ksxehxsdti20[address] [place], [place] [address]Dr. Garima Pulliam Erythrocyte distribution width (RBC) [Ratio] 13.5 % Normal 11.0-15.0 [facility] Comment on above: Performed By: #### C BC ####[facility] Rnetjbwdbo207[address] [place], [place] [address]Dr. Garima Pulliam Hematocrit (Bld) [Volume fraction] 42.9 % Normal 42.0-54.[address] [facility] Comment on above: Performed By: #### C BC ####[facility] Wzyylqctqa356[address] [place], [place] [address]Dr. Garima Pulliam Hemoglobin (Bld) [Mass/Vol] 13.9 g/dL Critically low 14.0-18.[address] [facility] Comment on above: Performed By: #### C BC ####[facility] Xkmcslgbni17[address] [place], [place] [address]Dr. Garima Pulliam IG # 0.01 10e3/ul Normal 0.00-0.[address] [facility] Comment on above: Performed By: #### C BC ####[facility] Jxddrweyda[address] [place], [place] [address]Dr. Garima Pulliam IG % 0.1 % Normal 0.0-0.[address] [facility] Comment on above: Performed By: #### C BC ####[facility] Hmrjaegulu3174 [place] [id number]. Garima Pulliam LYMPH # 1.7 103/ul Normal 1.2-3.[address] [facility] Comment on above: Performed By: #### C BC ####[facility] Yorowjmtcs5137 [place] [id number]. Garima Pulliam Lymphocytes/100 WBC (Bld) 22.8 % Normal 20.5-60.0 [facility] Comment on above: Performed By: #### C BC ####[facility] Inwyjyllfx7263 [place] [id number]. Garima Pulliam MANUAL DIFF REQ NO Normal [facility] Comment on above: Performed By: #### C BC ####[facility] Fqncashamt5456 [place] [id number]. Garima Pulliam MCH (RBC) [Entitic mass] 30.5 pg Normal 25.9-34.0 [facility] Comment on above: Performed By: #### C BC ####[facility] Kyfxpbebos4108 [place] [id number]. Garima Pulliam MCHC (RBC) [Mass/Vol] 32.4 g/dL Normal 29.9-35.2 [facility] Comment on above: Performed By: #### C BC ####[facility] Kszrfagxqg4070 [place] [id number]. Garima Pulliam MCV (RBC) [Entitic vol] 94.1 fL Critically high 80.0-94.0 [facility] Comment on above: Performed By: #### C BC ####[facility] Horbqiyxtn7534 [place] [id number]. Garima Pulliam MONO # 0.7 103/ul Normal 0.3-0.[address] [facility] Comment on above: Performed By: #### C BC ####[facility] Kjpdyafdlm2631 [place] [id number]. Garima Pulliam Monocytes/100 WBC (Bld) 8.6 % Normal 1.7-12.[address] [facility] Comment on above: Performed By: #### C BC ####[facility] Bmgfoiweqa2528 [place] [id number]. Garima Pulliam NEUT # 4.9 103/ul Normal 1.4-6.[address] [facility] Comment on above: Performed By: #### C BC ####[facility] Bcfqxviwfg0692 [place] [id number]. Garima Pulliam Neutrophils/100 WBC (Bld) 65.1 % Normal 43.0-75.0 [facility] Comment on above: Performed By: #### C BC ####[facility] Pcezpwvmkg9391 [place] [id number]. Garima Pulliam Platelet mean volume (Bld) [Entitic vol] 8.5 fL Critically low 9.5-13.5 [facility] Comment on above: Performed By: #### C BC ####[facility] Euszpsycxq0432 [place] [id number]. Garima Pulliam PLT 219 103/ul Normal 150-450 [facility] Comment on above: Performed By: #### C BC ####[facility] Ixlholofjq8049 [place] [id number]. Garima Pulliam RBC 4.56 106/ul Critically low 4.70-6.10 [facility] Comment on above: Performed By: #### C BC ####[facility] Uapynfszra6908 [place] [id number]. Garima Pulliam WBC 7.6 103/ul Normal 4.0-11.[address] [facility] Comment on above: Performed By: #### C BC ####[facility] Gjsoewgglh1341 [place] [id number]. Garima Pulliam LACTATE/LACTIC ACIDon 2022 Lactate [Moles/Vol] 1.2 mmol/L Normal 0.4-2.0 [facility] Comment on above: Performed By: #### L ACT ####[facility] Cltzxuhndi0537 [place] [id number]. Garima Pulliam MAGNESIUMon 03-30-2023 Magnesium [Mass/Vol] 1.8 mg/dL Normal 1.8-2.4 [facility] Comment on above: Performed By: #### M G ####[facility] Whmceqhvgp9889 [place] [address]Dr. Garima Pulliam PROF 14(COMP METB)on 023 Albumin [Mass/Vol] 3.5 g/dL Normal 3.4-5.0 [facility] Comment on above: Performed By: #### C DAVID, NANCY ####[facility] Ulmfwwxkzh8122 [place] [address]Dr. Garima Pulliam Albumin/Globulin [Mass ratio] 1.2 {ratio} Normal [facility] Comment on above: Performed By: #### C NANCY HERNANDEZ ####[facility] Ojyakatxqo8560 [place] [address]Dr. Garima Pulliam ALP [Catalytic activity/Vol] 85 U/L Normal 46-[address] [facility] Comment on above: Performed By: #### Ethan HERNANDEZ, NANCY ####[facility] Oiqqumgean9181 [place] [address]Dr. Garima Pulliam ALT [Catalytic activity/Vol] 29 U/L Normal 16-63 [facility] Comment on above: Performed By: #### NANCY Long MP ####[facility] Edvwkjzbbb3187 [place] [address]Dr. Garima Pulliam Anion gap [Moles/Vol] 8.0 mmol/L Normal [facility] Comment on above: Performed By: #### C DAVID, NANCY ####[facility] Uolhkullhs5397 [place] [address]Dr. Garima Pulliam AST [Catalytic activity/Vol] 18 U/L Normal 15-[address] [facility] Comment on above: Performed By: #### C DAVID, NANCY ####[facility] Pyifikbpud2078 [place] [address]Dr. Garima Pulliam Bilirubin [Mass/Vol] 0.4 mg/dL Normal 0.2-1.[address] [facility] Comment on above: Performed By: #### NANCY Long MP ####[facility] Izsqnqgpvw8929 [place] [address]Dr. Garima Pulliam Calcium [Mass/Vol] 8.8 mg/dL Normal 8.5-10.1 [facility] Comment on above: Performed By: #### C DAVID, NANCY ####[facility] Lkvgbbpwts4107 [place] [address]Dr. Garima Pulliam Chloride [Moles/Vol] 108 mmol/L Critically high 98-107 [facility] Comment on above: Performed By: #### C DAVID, NANCY ####[facility] Yblmacnljg3008 [place] [address]Dr. Graima Pulliam CO2 [Moles/Vol] 29.6 mmol/L Normal 21.0-32.0 [facility] Comment on above: Performed By: #### C DAVID, NANCY ####[facility] Ljodnrasyx1841 [place] [address]Dr. Garima Pulliam Creatinine [Mass/Vol] 0.77 mg/dL Normal 0.70-1.30 [facility] Comment on above: Performed By: #### C DAVID, NANCY ####[facility] Ipxdagykky4554 [place] [address]Dr. Garima Pulliam EGFR-AF OMANI >60 Normal >=60 [facility] Comment on above: Performed By: #### C DAVID, NANCY ####[facility] Vploflwgqc3627 [place] [address]Dr. Garima Pulliam EGFR-NON AF OMANI >60 Normal >=[address] [facility] Comment on above: Performed By: #### C DAVID, NANCY ####[facility] Izdfkcxarj3698 [place] [id number]. Garima Pulliam Globulin (S) [Mass/Vol] 2.8 g/dL Normal [facility] Comment on above: Performed By: #### C DAVID, NANCY ####[facility] Jutbnzqbhx9597 [place] [address]Dr. Garima Pulliam Glucose [Mass/Vol] 207 mg/dL Critically high 74-106 [facility] Comment on above: Performed By: #### C DAVID, NANCY ####[facility] Cqosvfecaz7751 [place] [address]Dr. Garima Pulliam Potassium [Moles/Vol] 4.6 mmol/L Normal 3.5-5.1 [facility] Comment on above: Performed By: #### C DAVID, CMADM ####[facility] Vwbqcocxnh4989 [place] [address]Dr. Garima Pulliam Protein [Mass/Vol] 6.3 g/dL Critically low 6.4-8.[address] [facility] Comment on above: Performed By: #### C DAVID, CMADM ####[facility] Nsymssakzb3933 [place] [address]Dr. Garima Pulliam Sodium [Moles/Vol] 141 mmol/L Normal 136-145 [facility] Comment on above: Performed By: #### C DAVID, CMADM ####[facility] Mkywzgsjja4747 [place] [address]Dr. Chapisrenu Pulliam Urea nitrogen [Mass/Vol] 9.0 mg/dL Normal 7.0-18.0 [facility] Comment on above: Performed By: #### C DAVID, CMADM ####[facility] Vhynslftte3342 [place] [address]Dr. Garima Pulliam Urea nitrogen/Creatinine [Mass ratio] 11.7 mg/mg Normal [facility] Comment on above: Performed By: #### C DAVID, CMADM ####[facility] Wmrrzfxhut7158 [place] [address]Dr. Chapisrenu Pulliam XR CHEST 1 Von 03-30-2023 XR CHEST 1 V Normal [facility] BNPon 03-27-2023 Natriuretic peptide B (Bld) [Mass/Vol] 251.0 pg/mL Normal <=900.0 [facility] Comment on above: Performed By: #### C MP, BNP, LIPID ####[facility] Jtwssuyjsa394[address] [place], [place] [address]Dr. Garima Heraclio GLYCOHEMOGLOBIN A1Con 2022 ADA RECOMMENDATION SEE BELOW Normal [facility] Comment on above: Result Comment: ADA RECOMMENDED LIMIT 4.0 - 6.0 ADA THERAPEUTIC TARGET < 7.0 ACTION SUGGESTED > 7.0 Performed By: #### A 1C ####[facility] Gtebeyccsu9973 [place] [address]Dr. Garima Pulliam Glucose [Mass/Vol] 180 mg/dL Normal [facility] Comment on above: Performed By: #### A 1C ####[facility] Lwvppmrpzb6459 [place] [address]Dr. Garima Pulliam HbA1c (Bld) [Mass fraction] 7.9 % Critically high 4.5-6.2 [facility] Comment on above: Performed By: #### A 1C ####[facility] Lsdnmrueup56[address] [place], [place] [address]Dr. Garima Pulliam HEMOGRAM AND PLATELon 2022 Hematocrit (Bld) [Volume fraction] 45.7 % Normal 42.0-54.0 [facility] Comment on above: Performed By: #### H H ####[facility] Epgsuoonhj9[address] [place], [place] [address]Dr. Garima Pulliam Hemoglobin (Bld) [Mass/Vol] 15.1 g/dL Normal 14.0-18.0 [facility] Comment on above: Performed By: #### H H ####[facility] [address]wnhndfmnq84[address] [place], [place] [address]Dr. Garima Pulliam MCH (RBC) [Entitic mass] 30.0 pg Normal 25.9-34.0 [facility] Comment on above: Performed By: #### H H ####[facility] Subcozndyb39[address] [place], [place] [address]Dr. Garima Pulliam MCHC (RBC) [Mass/Vol] 33.0 g/dL Normal 29.9-35.2 [facility] Comment on above: Performed By: #### H H ####[facility] Brxxudhleg444[address] [place], [place] [address]Dr. Garima Pulliam MCV (RBC) [Entitic vol] 90.7 fL Normal 80.0-94.0 [facility] Comment on above: Performed By: #### H H ####[facility] Mtynnmvzvo217[address] [place], [place] [address]Dr. Garima Pulliam PLT 222 103/ul Normal 150-450 [facility] Comment on above: Performed By: #### H H ####[facility] Resrkbburz5888 [place] [id number]. Garima Pulliam RBC 5.04 106/ul Normal 4.70-6.10 [facility] Comment on above: Performed By: #### H H ####[facility] Boustfwcjc5005 [place] [id number]. Garima Pulliam WBC 8.7 103/ul Normal 4.0-11.0 [facility] Comment on above: Performed By: #### H H ####[facility] [address]cnicvqbni[address] [place] [address]Dr. Garima Pulliam LIPID PROFILEon 03-27-2023 CHOL-HDL RATIO NORM SEE BELOW Normal [facility] Comment on above: Result Comment: 3.3 - 4.4 LOW RISK 4.4 - 7.1 AVERAGE RISK 7.1 - 11.0 MODERATE RISK >11.0 HIGH RISK Performed By: #### C MP, BNP, LIPID ####[facility] Irblzahdur[address] [place] [id number]. Garima Pulliam Cholesterol [Mass/Vol] 113 mg/dL Normal <=200 [facility] Comment on above: Performed By: #### C MP, BNP, LIPID ####[facility] Bcpwqkrzyk2187 [place] [id number]. Garima Pulliam Cholesterol in HDL [Mass/Vol] 51 mg/dL Normal 40-60 [facility] Comment on above: Performed By: #### C MP, BNP, LIPID ####[facility] Qenjwfpfbw0213 [place] [id number]. Garima Pulliam Cholesterol in LDL [Mass/Vol] 49.8 mg/dL Normal [facility] Comment on above: Performed By: #### C MP, BNP, LIPID ####[facility] Tgzbfyvjhq0480 [place] [id number]. Garima Pulliam Cholesterol.total/Cho lesterol in HDL [Mass ratio] 2.2 {ratio} Normal [facility] Comment on above: Performed By: #### C MP, BNP, LIPID ####[facility] Eecycqkchm030[address] [place] [address]Dr. Garima Pulliam HDL NORMAL > or = 60 mg/dl - LOW CARDIOVASCULAR RISK <40 mg/dl - HIGH CARDIOVASCULAR RISK Normal [facility] Comment on above: Performed By: #### C MP, BNP, LIPID ####[facility] Qgwejmwvpe9848 [place] [address]Dr. Garima Pulliam LDL CALC NORMAL SEE BELOW Normal [facility] Comment on above: Result Comment: <100 mg/dl OPTIMAL 100 - 129 mg/dl NEAR OR ABOVE OPTIMAL 130 - 159 mg/dl BORDERLINE HIGH 160 - 189 mg/dl HIGH >190 mg/dl VERY HIGH Performed By: #### C MP, BNP, LIPID ####[facility] Kqwrptlknp3835 [place] [address]Dr. Garima Pulliam Triglyceride [Mass/Vol] 61 mg/dL Normal <=150 [facility] Comment on above: Performed By: #### C MP, BNP, LIPID ####[facility] Ocaiynkuhv9[address] [place] [address]Dr. Garima Pulliam VLDL CALC 12.2 mg/dL Normal [facility] Comment on above: Performed By: #### C MP, BNP, LIPID ####[facility] Geylejsyso3978 [place] [address]Dr. Garima Pulliam PROF 14(COMP METB)on 023 Albumin [Mass/Vol] 3.5 g/dL Normal 3.4-5.0 [facility] Comment on above: Performed By: #### C MP, BNP, LIPID ####[facility] Beqontrtna2449 [place] [address]Dr. Garima Pulliam Albumin/Globulin [Mass ratio] 1.2 {ratio} Normal [facility] Comment on above: Performed By: #### C MP, BNP, LIPID ####[facility] Imdvnqwrgt7448 [place] [address]Dr. Garima Pulliam ALP [Catalytic activity/Vol] 82 U/L Normal 46-116 [facility] Comment on above: Performed By: #### C MP, BNP, LIPID ####[facility] Tbdbeowaun2063 [place] [address]Dr. Garima Pulliam ALT [Catalytic activity/Vol] 33 U/L Normal 16-63 [facility] Comment on above: Performed By: #### C MP, BNP, LIPID ####[facility] Pawagypczb4675 [place] [address]Dr. Garima Pulliam Anion gap [Moles/Vol] 9.9 mmol/L Normal [facility] Comment on above: Performed By: #### C MP, BNP, LIPID ####[facility] Rtqtemlnuj4298 [place] [address]Dr. Garima Pulliam AST [Catalytic activity/Vol] 24 U/L Normal 15-37 [facility] Comment on above: Performed By: #### C MP, BNP, LIPID ####[facility] Gfunffusug8047 [place] [address]Dr. Garima Pulliam Bilirubin [Mass/Vol] 0.6 mg/dL Normal 0.2-1.0 [facility] Comment on above: Performed By: #### C MP, BNP, LIPID ####[facility] Tiaqfyceye2238 [place] [address]Dr. Garima Pulliam Calcium [Mass/Vol] 9.2 mg/dL Normal 8.5-10.1 [facility] Comment on above: Performed By: #### C MP, BNP, LIPID ####[facility] Lsstljmvdq3289 [place] [address]Dr. Garima Pulliam Chloride [Moles/Vol] 106 mmol/L Normal 98-107 [facility] Comment on above: Performed By: #### C MP, BNP, LIPID ####[facility] Dsrkkznqzr2041 [place] [address]Dr. Garima Pulliam CO2 [Moles/Vol] 32.3 mmol/L Critically high 21.0-32.0 [facility] Comment on above: Performed By: #### C MP, BNP, LIPID ####[facility] Conppyrpia1305 [place] [address]Dr. Garima Pulliam Creatinine [Mass/Vol] 0.70 mg/dL Normal 0.70-1.30 [facility] Comment on above: Performed By: #### C MP, BNP, LIPID ####[facility] Iitskagsnt5013 [place] [address]Dr. Chapisrenu Heraclio EGFR-AF OMANI >60 Normal >=60 [facility] Comment on above: Performed By: #### C MP, BNP, LIPID ####[facility] Mbmygtefwq0323 [place] [address]Dr. Garima Pulliam EGFR-NON AF OMANI >60 Normal >=60 [facility] Comment on above: Performed By: #### C MP, BNP, LIPID ####[facility] Ylgxyeljqw8622 [place] [address]Dr. Garima Pulliam Globulin (S) [Mass/Vol] 2.9 g/dL Normal [facility] Comment on above: Performed By: #### C MP, BNP, LIPID ####[facility] Hfxsazeeod2503 [place] [address]Dr. Garima Pulliam Glucose [Mass/Vol] 111 mg/dL Critically high 74-106 [facility] Comment on above: Performed By: #### C MP, BNP, LIPID ####[facility] Qvnfjcvmle[address] [place], [place] [address]Dr. Garima Pulliam Potassium [Moles/Vol] 4.2 mmol/L Normal 3.5-5.1 [facility] Comment on above: Performed By: #### C MP, BNP, LIPID ####[facility] Wocdlghxky499[address] [place], [place] [address]Dr. Garima Pulliam Protein [Mass/Vol] 6.4 g/dL Normal 6.4-8.2 [facility] Comment on above: Performed By: #### C MP, BNP, LIPID ####[facility] Ldgjfrujxn7[address] [place], [place] [address]Dr. Garima Pulliam Sodium [Moles/Vol] 144 mmol/L Normal 136-145 [facility] Comment on above: Performed By: #### C MP, BNP, LIPID ####[facility] Zzggiwoxen675[address] [place], [place] [address]Dr. Garima Pulliam Urea nitrogen [Mass/Vol] 7.0 mg/dL Normal 7.0-18.[address] [facility] Comment on above: Performed By: #### C MP, BNP, LIPID ####[facility] Ldzzgoowrx7[address] [place], [place] [address]Dr. Garima Pulliam Urea nitrogen/Creatinine [Mass ratio] 10.0 mg/mg Normal [facility] Comment on above: Performed By: #### C MP, BNP, LIPID ####[facility] Veeuycscst295[address] [place], [place] [address]Dr. Garima Pulliam BNPon 03-22-2023 Natriuretic peptide B (Bld) [Mass/Vol] 103.0 pg/mL Normal <=900.[address] [facility] Comment on above: Performed By: #### B RETRIMMER, BMP ####[facility] Xxrltuppoz8120[address] [place], [place] [address]Dr. Garima Pulliam CBC AUTO DIFFon 03-22-2023 BASO # 0.0 103/ul Normal 0.0-0.[address] [facility] Comment on above: Performed By: #### C BC ####[facility] Cuteaxfhmw24[address] [place], [place] [address]Dr. Garima Pulliam Basophils/100 WBC (Bld) 0.3 % Normal 0.2-2.[address] [facility] Comment on above: Performed By: #### C BC ####[facility] Uojqashvyk8454[address] [place], [place] [address]Dr. Garima Pulliam EO # 0.2 103/ul Normal 0.0-0.[address] [facility] Comment on above: Performed By: #### C BC ####[facility] Hkbaeyraxt67[address] [place], [place] [address]Dr. Garima Pulliam Eosinophils/100 WBC (Bld) 2.2 % Normal 0.9-7.[address] [facility] Comment on above: Performed By: #### C BC ####[facility] Qonhgbxzsv2906[address] [place], [place] [address]Dr. Garima Pulliam Erythrocyte distribution width (RBC) [Ratio] 13.2 % Normal 11.0-15.[address] [facility] Comment on above: Performed By: #### C BC ####[facility] Dhieholich6973 [place] [address]Dr. Garima Pulliam Hematocrit (Bld) [Volume fraction] 43.4 % Normal 42.0-54.0 [facility] Comment on above: Performed By: #### C BC ####[facility] Ehghpnwwcv4756 [place] [address]Dr. Garima Heraclio Hemoglobin (Bld) [Mass/Vol] 14.3 g/dL Normal 14.0-18.0 [facility] Comment on above: Performed By: #### C BC ####[facility] Abiihdmden27[address] [place], [place] [address]Dr. Garima Heraclio IG # 0.02 10e3/ul Normal 0.00-0.03 [facility] Comment on above: Performed By: #### C BC ####[facility] Fwzfjayerl074[address] [place], [place] [address]Dr. Garima Pulliam IG % 0.3 % Normal 0.0-0.5 [facility] Comment on above: Performed By: #### C BC ####[facility] Wcbjqbjbpy025[address] [place], [place] [address]Dr. Garima Heraclio LYMPH # 2.0 103/ul Normal 1.2-3.[address] [facility] Comment on above: Performed By: #### C BC ####[facility] Xporpgyfmv274[address] [place], [place] [address]Dr. Chapisrenu Pulliam Lymphocytes/100 WBC (Bld) 24.8 % Normal 20.5-60.0 [facility] Comment on above: Performed By: #### C BC ####[facility] Emnchcyffa8810[address] [place], [place] [address]Dr. Chapisrenu Pulliam MANUAL DIFF REQ NO Normal [facility] Comment on above: Performed By: #### C BC ####[facility] Xtldwjtcpl39[address] [place], [place] [address]Dr. Garima Pulliam MCH (RBC) [Entitic mass] 30.0 pg Normal 25.9-34.0 [facility] Comment on above: Performed By: #### C BC ####[facility] Btrxfipipf0638 [place] [id number]. Garima Heraclio MCHC (RBC) [Mass/Vol] 32.9 g/dL Normal 29.9-35.[address] [facility] Comment on above: Performed By: #### C BC ####[facility] Rebenzfikr3271 [place] [phone]. Garima Pulliam MCV (RBC) [Entitic vol] 91.0 fL Normal 80.0-94.[address] [facility] Comment on above: Performed By: #### C BC ####[facility] Yfwgdfbxsv8176[address] [place], [place] [address]Dr. Garima Pulliam MONO # 0.8 103/ul Normal 0.3-0.[address] [facility] Comment on above: Performed By: #### C BC ####[facility] Pmdtgwugkj4[address] [place], [place] [address]Dr. Garima Pulliam Monocytes/100 WBC (Bld) 9.7 % Normal 1.7-12.[address] [facility] Comment on above: Performed By: #### C BC ####[facility] Fasukkhsxm26[address] [place], [place] [address]Dr. Garima Pulliam NEUT # 4.9 103/ul Normal 1.4-6.[address] [facility] Comment on above: Performed By: #### C BC ####[facility] Ulzkrxyhmx8665[address] [place], [place] [address]Dr. Garima Pulliam Neutrophils/100 WBC (Bld) 62.7 % Normal 43.0-75.[address] [facility] Comment on above: Performed By: #### C BC ####[facility] Vribuymhny265[address] [place], [place] [address]Dr. Garima Pulliam Platelet mean volume (Bld) [Entitic vol] 8.8 fL Critically low 9.5-13.[address] [facility] Comment on above: Performed By: #### C BC ####[facility] Axnzuyzmes1384[address] [place], [place] [address]Dr. Garima Pulliam PLT 198 103/ul Normal 150-[address] [facility] Comment on above: Performed By: #### C BC ####[facility] Ghfxbmchbd1617 [place] [id number]. Chapisrenu Pulliam RBC 4.77 106/ul Normal 4.70-6.[address] [facility] Comment on above: Performed By: #### C BC ####[facility] Vgtezheyyk1418 [place] [id number]. Garima Pulliam WBC 7.9 103/ul Normal 4.0-11.[address] [facility] Comment on above: Performed By: #### C BC ####[facility] Svpopavgfu8298 [place] [address]Dr. Garima Pulliam D-DIMERon 03-22-2023 D-DIMER 0.85 mg/L FEU Critically high <=0.59 [facility] Comment on above: Performed By: #### D DIM ####[facility] Qluirlgwon1689[address] [place], [place] [address]Dr. Garima Pulliam D-DIMER COMMENTS SEE BELOW Normal [facility] Comment on above: Result Comment: Incr [...] generalized hospitalization. Performed By: #### D DIM ####[facility] Tyqyqenojb4504 [place] [address]Dr. Garima Pulliam PROF CHEM 8 (BAS METB)on Anion gap [Moles/Vol] 6.9 mmol/L Normal [facility] Comment on above: Performed By: #### B RETRIMMER, BMP ####[facility] Zrlmcfaxso3520 [place] [address]Dr. Garima Pulliam Calcium [Mass/Vol] 8.9 mg/dL Normal 8.5-10.1 [facility] Comment on above: Performed By: #### B RETRIMMER, BMP ####[facility] Imgkomkosb4123 [place] [id number]. Garima Pulliam Chloride [Moles/Vol] 101 mmol/L Normal 98-107 [facility] Comment on above: Performed By: #### B RETRIMMER, BMP ####[facility] Efnytyumkx7191 [place] [phone]. Garima Pulliam CO2 [Moles/Vol] 30.7 mmol/L Normal 21.0-32.0 [facility] Comment on above: Performed By: #### B RETRIMMER, BMP ####[facility] Gswljzarrw7359 [place] [phone]. Garima Pulliam Creatinine [Mass/Vol] 0.82 mg/dL Normal 0.70-1.30 [facility] Comment on above: Performed By: #### B RETRIMMER, BMP ####[facility] Ntbhusfobl7532 [place] [address]Dr. Garima Pulliam EGFR-AF OMANI >60 Normal >=60 [facility] Comment on above: Performed By: #### B RETRIMMER, BMP ####[facility] Jtgxchdrdm1833 [place] [address]Dr. Garima Pulliam EGFR-NON AF OMANI >60 Normal >=60 [facility] Comment on above: Performed By: #### B RETRIMMER, BMP ####[facility] Sptxqdmnjp040[address] [place], [place] [address]Dr. Garima Pulliam Glucose [Mass/Vol] 339 mg/dL Critically high 74-106 [facility] Comment on above: Performed By: #### B RETRIMMER, BMP ####[facility] Psxjkeijer5674 [place] [phone]. Garima Pulliam Potassium [Moles/Vol] 3.6 mmol/L Normal 3.5-5.1 [facility] Comment on above: Performed By: #### B RETRIMMER, BMP ####[facility] Yofjgvpwyk7363 [place] [address]Dr. Garima Pulliam Sodium [Moles/Vol] 135 mmol/L Critically low 136-145 [facility] Comment on above: Performed By: #### B RETRIMMER, BMP ####[facility] Mtgqtscfye2375 [place] [phone]. Garima Pulliam Urea nitrogen [Mass/Vol] 11.0 mg/dL Normal 7.0-18.[address] [facility] Comment on above: Performed By: #### B RETRIMMER, BMP ####[facility] Vszlrrcogr3454 [place] [id number]. Garima Pulliam Urea nitrogen/Creatinine [Mass ratio] 13.4 mg/mg Normal [facility] Comment on above: Performed By: #### B RETRIMMER, BMP ####[facility] Zukttusnqg559[address] [place], [place] [address]Dr. Garima Pulliam US VERONICA DOP LEG BILon 023 US VERONICA DOP LEG BENOIT Normal [facility] BNPon 03-18-2023 Natriuretic peptide B (Bld) [Mass/Vol] 226.0 pg/mL Normal <=900.[address] [facility] Comment on above: Performed By: #### B RETRIMMER, BMP ####[facility] Yewwszdxew2612[address] [place], [place] [address]Dr. Garima Pulliam CBC AUTO DIFFon 03-18-2023 BASO # 0.0 103/ul Normal 0.0-0.[address] [facility] Comment on above: Performed By: #### C BC ####[facility] Yywhlxoalt7701[address] [place], [place] [address]Dr. Garima Heraclio Basophils/100 WBC (Bld) 0.2 % Normal 0.2-2.[address] [facility] Comment on above: Performed By: #### C BC ####[facility] Wfyikjckae6613[address] [place], [place] [address]Dr. Garima Pulliam EO # 0.3 103/ul Normal 0.0-0.[address] [facility] Comment on above: Performed By: #### C BC ####[facility] Ulobmgltga7695[address] [place], [place] [address]Dr. Garima Heraclio Eosinophils/100 WBC (Bld) 2.5 % Normal 0.9-7.[address] [facility] Comment on above: Performed By: #### C BC ####[facility] Ngjcsaigvq2655[address] [place], [place] [address]Dr. Garima Pulliam Erythrocyte distribution width (RBC) [Ratio] 13.2 % Normal 11.0-15.[address] [facility] Comment on above: Performed By: #### C BC ####[facility] Gnytmfqmiw7703 [place] [address]Dr. Garima Pulliam Hematocrit (Bld) [Volume fraction] 45.8 % Normal 42.0-54.[address] [facility] Comment on above: Performed By: #### C BC ####[facility] Idnxlnhboi9397 [place] [address]Dr. Garima Pulliam Hemoglobin (Bld) [Mass/Vol] 15.3 g/dL Normal 14.0-18.[address] [facility] Comment on above: Performed By: #### C BC ####[facility] Czojvbirmm9732[address] [place], [place] [address]Dr. Garima Heraclio IG # 0.02 10e3/ul Normal 0.00-0.[address] [facility] Comment on above: Performed By: #### C BC ####[facility] Haxkhcaoop777[address] [place], [place] [address]Dr. Garima Pulliam IG % 0.2 % Normal 0.0-0.[address] [facility] Comment on above: Performed By: #### C BC ####[facility] Lbnugilvjq0946[address] [place], [place] [address]Dr. Garima Heraclio LYMPH # 1.8 103/ul Normal 1.2-3.[address] [facility] Comment on above: Performed By: #### C BC ####[facility] Kcmssopylu2179[address] [place], [place] [address]Dr. Chapisrenu Pulliam Lymphocytes/100 WBC (Bld) 18.3 % Critically low 20.5-60.[address] [facility] Comment on above: Performed By: #### C BC ####[facility] Fmgedwyjrg498[address] [place], [place] [address]Dr. Chapsirenu Pulliam MANUAL DIFF REQ NO Normal [facility] Comment on above: Performed By: #### C BC ####[facility] Ibnjjjmapq030[address] [place], [place] [address]Dr. Garima Pulliam MCH (RBC) [Entitic mass] 30.5 pg Normal 25.9-34.[address] [facility] Comment on above: Performed By: #### C BC ####[facility] Uhetycqhag2703 [place] [id number]. Garima Pulliam MCHC (RBC) [Mass/Vol] 33.4 g/dL Normal 29.9-35.[address] [facility] Comment on above: Performed By: #### C BC ####[facility] Igdarnfguk3989 [place] [id number]. Garima Pulliam MCV (RBC) [Entitic vol] 91.2 fL Normal 80.0-94.[address] [facility] Comment on above: Performed By: #### C BC ####[facility] Ddrflrlzym4624[address] [place], [place] [address]DrAdalberto Garima Heraclio MONO # 0.8 103/ul Normal 0.3-0.[address] [facility] Comment on above: Performed By: #### C BC ####[facility] Kfdanbnvfn8464[address] [place], [place] [address]Dr. Garima Heraclio Monocytes/100 WBC (Bld) 7.6 % Normal 1.7-12.[address] [facility] Comment on above: Performed By: #### C BC ####[facility] Hvdbylumxe0860[address] [place], [place] [address]Dr. Garima Pulliam NEUT # 7.0 103/ul Critically high 1.4-6.5 [facility] Comment on above: Performed By: #### C BC ####[facility] Ryfsceybqq8999[address] [place], [place] [address]DrAdalberto Garima Heraclio Neutrophils/100 WBC (Bld) 71.2 % Normal 43.0-75.[address] [facility] Comment on above: Performed By: #### C BC ####[facility] Htvqwmmrxg250[address] [place], [place] [address]Dr. Garima Pulliam Platelet mean volume (Bld) [Entitic vol] 8.9 fL Critically low 9.5-13.[address] [facility] Comment on above: Performed By: #### C BC ####[facility] Pfdgdfsnli1011 [place] [id number]. Garima Pulliam PLT 217 103/ul Normal 150-450 [facility] Comment on above: Performed By: #### C BC ####[facility] Fkvefsfuyy89[address] [place], [place] [address]Dr. Garima Pulliam RBC 5.02 106/ul Normal 4.70-6.10 [facility] Comment on above: Performed By: #### C BC ####[facility] Svacndxvcq6630[address] [place], [place] [address]Dr. Garima Pulliam WBC 9.8 103/ul Normal 4.0-11.0 [facility] Comment on above: Performed By: #### C BC ####[facility] Zcaqfbunos0[address] [place], [place] [address]Dr. Garima Heraclio CRPon 03-18-2023 CRP 0.1 mg/dL Normal <=1.0 [facility] Comment on above: Performed By: #### C RP ####[facility] Newwfkxynu184[address] [place], [place] [address]Dr. Garima Heraclio PROF CHEM 8 (BAS METB)on Anion gap [Moles/Vol] 10.4 mmol/L Normal [facility] Comment on above: Performed By: #### B RETRIMMER, BMP ####[facility] Batprrpbds45[address] [place], [place] [address]Dr. Garima Heraclio Calcium [Mass/Vol] 8.8 mg/dL Normal 8.5-10.1 [facility] Comment on above: Performed By: #### B RETRIMMER, BMP ####[facility] Slfezcbywf5133 [place] [address]Dr. Garima Pulliam Chloride [Moles/Vol] 97 mmol/L Critically low 98-107 [facility] Comment on above: Performed By: #### B RETRIMMER, BMP ####[facility] Ujchqjxztz3485 [place] [address]Dr. Garima Pulliam CO2 [Moles/Vol] 31.2 mmol/L Normal 21.0-32.0 [facility] Comment on above: Performed By: #### B RETRIMMER, BMP ####[facility] Lvcfsnsmyl8143 [place] [id number]. Garima Pulliam Creatinine [Mass/Vol] 0.91 mg/dL Normal 0.70-1.30 [facility] Comment on above: Performed By: #### B RETRIMMER, BMP ####[facility] Ecguslqmed9088 [place] [id number]. Garima Pulliam EGFR-AF OMANI >60 Normal >=60 [facility] Comment on above: Performed By: #### B RETRIMMER, BMP ####[facility] Yeoxueqwrt9204 [place] [id number]. Garima Pulliam EGFR-NON AF OMANI >60 Normal >=60 [facility] Comment on above: Performed By: #### B RETRIMMER, BMP ####[facility] Lyzfnuoopv[address] [place], [place] [id number]. Garima Pulliam Glucose [Mass/Vol] 315 mg/dL Critically high 74-106 T [facility] Comment on above: Performed By: #### B RETRIMMER, BMP ####[facility] Btluxqmjvu[address] [place], [place] [id number]. Garima Pulliam Potassium [Moles/Vol] 3.6 mmol/L Normal 3.5-5.1 [facility] Comment on above: Performed By: #### B RETRIMMER, BMP ####[facility] Gkpoarxyuy[address] [place], [place] [id number]. Garima Pulliam Sodium [Moles/Vol] 135 mmol/L Critically low 136-145 Th [facility] Comment on above: Performed By: #### B RETRIMMER, BMP ####[facility] Wjgypeoocq[address] [place], [place] [id number]. Garima Pulliam Urea nitrogen [Mass/Vol] 7.0 mg/dL Normal 7.0-18.0 [facility] Comment on above: Performed By: #### B RETRIMMER, BMP ####[facility] Usofinlult[address] [place], [place] [id number]. Garima Pulliam Urea nitrogen/Creatinine [Mass ratio] 7.7 mg/mg Normal [facility] Comment on above: Performed By: #### B RETRIMMER, BMP ####[facility] Gtbvetmhah300[address] [place], [place] [address]Dr. Garima Pulliam SED RATE WESTERGRENon 2022 SED RATE 8 mm/hr Normal <=[address] [facility] Comment on above: Performed By: #### S EDR ####[facility] Nwftxrbbfo98[address] [place], [place] [address]Dr. Garima Pulliam BNPon 03-16-2023 Natriuretic peptide B (Bld) [Mass/Vol] 241.0 pg/mL Normal <=900.0 [facility] Comment on above: Performed By: #### B RETRIMMER, BMP, HSTROPN ####[facility] [address]rejshfhdj[address] [place] [id number]. Garima Heraclio CBC AUTO DIFFon 03-16-2023 BASO # 0.0 103/ul Normal 0.0-0.1 [facility] Comment on above: Performed By: #### C BC ####[facility] Wujkdtrcix64[address] [place], [place] [address]Dr. Garima Heraclio Basophils/100 WBC (Bld) 0.2 % Normal 0.2-2.[address] [facility] Comment on above: Performed By: #### C BC ####[facility] Vmnigywefa4685[address] [place], [place] [address]Dr. Chapisrenu Heraclio EO # 0.2 103/ul Normal 0.0-0.[address] [facility] Comment on above: Performed By: #### C BC ####[facility] Lbgleuqecp8750[address] [place], [place] [address]Dr. Garima Heraclio Eosinophils/100 WBC (Bld) 2.7 % Normal 0.9-7.[address] [facility] Comment on above: Performed By: #### C BC ####[facility] Dvkzskiyex7294[address] [place], [place] [address]Dr. Garima Heraclio Erythrocyte distribution width (RBC) [Ratio] 13.1 % Normal 11.0-15.[address] [facility] Comment on above: Performed By: #### C BC ####[facility] Yrdrpjnyed0027[address] [place], [place] [address]Dr. Garima Heraclio Hematocrit (Bld) [Volume fraction] 41.8 % Critically low 42.0-54.0 [facility] Comment on above: Performed By: #### C BC ####[facility] Qsvnjiaspz5[address] [place] [address]DrAdalberto Garima Pulliam Hemoglobin (Bld) [Mass/Vol] 14.0 g/dL Normal 14.0-18.0 [facility] Comment on above: Performed By: #### C BC ####[facility] Qiyqfwhcsy4567 [place] [address]DrAdalberto Pulliam IG # 0.03 10e3/ul Normal 0.00-0.03 [facility] Comment on above: Performed By: #### C BC ####[facility] Mowhcgdbru713[address] [place], [place] [address]DrAdalberto Chapisrenu Pulliam IG % 0.3 % Normal 0.0-0.5 [facility] Comment on above: Performed By: #### C BC ####[facility] Yiboszukad3849[address] [place], [place] [address]DrAdalberto Chapisrenu Pulliam LYMPH # 2.1 103/ul Normal 1.2-3.[address] [facility] Comment on above: Performed By: #### C BC ####[facility] Zxffafgncj135188 [address] [place], [place] [address]DrAdalberto Chapisrenu Pulliam Lymphocytes/100 WBC (Bld) 24.2 % Normal 20.5-60.0 [facility] Comment on above: Performed By: #### C BC ####[facility] Svfyrbgrzz856[address] [place], [place] [address]DrAdalberto Pulliam MANUAL DIFF REQ NO Normal [facility] Comment on above: Performed By: #### C BC ####[facility] Popmalcjmt066[address] [place], [place] [address]DrAdalberto Pulliam MCH (RBC) [Entitic mass] 30.2 pg Normal 25.9-34.[address] [facility] Comment on above: Performed By: #### C BC ####[facility] Jxjdvlerxh1155[address] [place], [place] [address]DrAdalberto Pulliam MCHC (RBC) [Mass/Vol] 33.5 g/dL Normal 29.9-35.[address] [facility] Comment on above: Performed By: #### C BC ####[facility] Onfcrmhpzm000688 [address] [place], [place] [address]DrAdalberto Pulliam MCV (RBC) [Entitic vol] 90.1 fL Normal 80.0-94.[address] [facility] Comment on above: Performed By: #### C BC ####[facility] Fxvglisdqi820[address] [place], [place] [address]DrAdalberto Pulliam MONO # 0.6 103/ul Normal 0.3-0.[address] [facility] Comment on above: Performed By: #### C BC ####[facility] Xuuinqxsjm6225[address] [place], [place] [address]DrAdalberto Pulliam Monocytes/100 WBC (Bld) 7.4 % Normal 1.7-12.[address] [facility] Comment on above: Performed By: #### C BC ####[facility] Eqilcaeqmc5596[address] [place], [place] [address]DrAdalberto Pulliam NEUT # 5.6 103/ul Normal 1.4-6.[address] [facility] Comment on above: Performed By: #### C BC ####[facility] Tfbjcueamd4610[address] [place], [place] [address]DrAdalberto Pulliam Neutrophils/100 WBC (Bld) 65.2 % Normal 43.0-75.[address] [facility] Comment on above: Performed By: #### C BC ####[facility] Ololabfcqu3126[address] [place], [place] [address]DrAdalberto Pulliam Platelet mean volume (Bld) [Entitic vol] 8.7 fL Critically low 9.5-13.[address] [facility] Comment on above: Performed By: #### C BC ####[facility] Ucooomdxco1430[address] [place], [place] [address]DrAdalberto Pulliam PLT 195 103/ul Normal 150-[address] [facility] Comment on above: Performed By: #### C BC ####[facility] Tzldbpnuze784[address] [place], [place] [address]DrAdalberto Pulliam RBC 4.64 106/ul Critically low 4.70-6.10 [facility] Comment on above: Performed By: #### C BC ####[facility] Eiameyngbp2147[address] [place], [place] [address]Dr. Chapisrenu Pulliam WBC 8.6 103/ul Normal 4.0-11.0 [facility] Comment on above: Performed By: #### C BC ####[facility] Tvibhhqbek5525[address] [place], [place] [address]Dr. Garima Pulliam PROF CHEM 8 (BAS METB)on Anion gap [Moles/Vol] 6.7 mmol/L Normal [facility] Comment on above: Performed By: #### B RETRIMMER, BMP, HSTROPN ####[facility] Kotnjsnfgd107388 [address] [place], [place] [address]Dr. Garima Pulliam Calcium [Mass/Vol] 8.8 mg/dL Normal 8.5-10.1 [facility] Comment on above: Performed By: #### B RETRIMMER, BMP, HSTROPN ####[facility] Zhzkjtwdbe846488 [address] [place], [place] [address]Dr. Garima Pulliam Chloride [Moles/Vol] 106 mmol/L Normal 98-[address] [facility] Comment on above: Performed By: #### B RETRIMMER, BMP, HSTROPN ####[facility] Kztfazhlqy4066[address] [place], [place] [address]Dr. Garima Pulliam CO2 [Moles/Vol] 31.4 mmol/L Normal 21.0-32.0 [facility] Comment on above: Performed By: #### B RETRIMMER, BMP, HSTROPN ####[facility] Zwxvgjcfvh9727[address] [place], [place] [address]Dr. Garima Pulliam Creatinine [Mass/Vol] 0.75 mg/dL Normal 0.70-1.[address] [facility] Comment on above: Performed By: #### B RETRIMMER, BMP, HSTROPN ####[facility] Jkplkwevyt0964[address] [place], [place] [address]Dr. Garima Pulliam EGFR-AF OMANI >60 Normal >=60 [facility] Comment on above: Performed By: #### B RETRIMMER, BMP, HSTROPN ####[facility] Wgrlmsnkmn4[address] [place] [address]Dr. Garima Pulliam EGFR-NON AF OMANI >60 Normal >=60 [facility] Comment on above: Performed By: #### B RETRIMMER, BMP, HSTROPN ####[facility] Fiftyuwbqo4867 [place] [address]Dr. Garima Pulliam Glucose [Mass/Vol] 161 mg/dL Critically high 74-106 [facility] Comment on above: Performed By: #### B RETRIMMER, BMP, HSTROPN ####[facility] Tfyyfeoptm0937 [place] [address]Dr. Garima Pulliam Potassium [Moles/Vol] 4.1 mmol/L Normal 3.5-5.1 [facility] Comment on above: Performed By: #### B RETRIMMER, BMP, HSTROPN ####[facility] Gjozpzphyu4537 [place] [address]Dr. Garima Pulliam Sodium [Moles/Vol] 140 mmol/L Normal 136-145 [facility] Comment on above: Performed By: #### B RETRIMMER, BMP, HSTROPN ####[facility] Omaefishrv0712 [place] [address]Dr. Garima Pulliam Urea nitrogen [Mass/Vol] 7.0 mg/dL Normal 7.0-18.0 [facility] Comment on above: Performed By: #### B RETRIMMER, BMP, HSTROPN ####[facility] Craxvhfbus6536 [place] [address]Dr. Garima Pulliam Urea nitrogen/Creatinine [Mass ratio] 9.3 mg/mg Normal [facility] Comment on above: Performed By: #### B RETRIMMER, BMP, HSTROPN ####[facility] Vdpkvggunu360[address] [place], [place] [address]Dr. Garima Pulliam TROPONIN, HIGH SENSITIVITYon 03-16-2023 HSTROP 9.7 pg/mL Normal 4.0-76.1 [facility] Comment on above: Result Comment: CUT- OFF POINTS HAVE BEEN ESTABLISHED BASED ON THE FOURTH UNIVERSAL DEFINITIONS OF MYOCARDIALINFARCTION. THE UPPER REFERENCE LIMIT (URL) OF TROPONIN, DEFINED THE 99TH PERCENTILE OFcTnI DISTRIBUTION IN A REFERENCE POPULATION, HAS BEEN CONFIRMED THE DECISION THRESHOLDFOR WI DIAGNOSIS. Performed By: #### B RETRIMMER, BMP, HSTROPN ####[facility] Undvfjwlpf0461 [place] [address]Dr. Garima Pulliam XR CHEST 1 Von 03-16-2023 XR CHEST [address] [facility] BNPon 03-06-2023 Natriuretic peptide B (Bld) [Mass/Vol] 111.0 pg/mL Normal <=900.[address] [facility] Comment on above: Performed By: #### C MP, BNP, CK ####[facility] Mzzzazkoki9444[address] [place], [place] [address]Dr. Garima Pulliam CBC AUTO DIFFon 03-06-2023 BASO # 0.0 103/ul Normal 0.0-0.1 [facility] Comment on above: Performed By: #### C BC ####[facility] Tzqfgfiwsp2585[address] [place], [place] [address]Dr. Garima Heraclio Basophils/100 WBC (Bld) 0.2 % Normal 0.2-2.[address] [facility] Comment on above: Performed By: #### C BC ####[facility] Yudiwskykg1420[address] [place], [place] [address]Dr. Garima Pulliam EO # 0.3 103/ul Normal 0.0-0.7 [facility] Comment on above: Performed By: #### C BC ####[facility] Enmugdopvv359[address] [place], [place] [address]Dr. Garima Heraclio Eosinophils/100 WBC (Bld) 3.5 % Normal 0.9-7.[address] [facility] Comment on above: Performed By: #### C BC ####[facility] Rffrvgfzng827[address] [place], [place] [address]Dr. Garima Pulliam Erythrocyte distribution width (RBC) [Ratio] 13.3 % Normal 11.0-15.[address] [facility] Comment on above: Performed By: #### C BC ####[facility] Uxqpcfplmv9474[address] [place], [place] [address]Dr. Garima Pulliam Hematocrit (Bld) [Volume fraction] 43.7 % Normal 42.0-54.[address] [facility] Comment on above: Performed By: #### C BC ####[facility] Zwparrwnhg0978 [place] [address]Dr. Garima Pulliam Hemoglobin (Bld) [Mass/Vol] 14.7 g/dL Normal 14.0-18.[address] [facility] Comment on above: Performed By: #### C BC ####[facility] Osmlffemuv3632 [place] [address]Dr. Garima Pulliam IG # 0.03 10e3/ul Normal 0.00-0.[address] [facility] Comment on above: Performed By: #### C BC ####[facility] Wzmaqqycsn0501 [place] [address]Dr. Garima Pulliam IG % 0.4 % Normal 0.0-0.[address] [facility] Comment on above: Performed By: #### C BC ####[facility] Ftpunwkbsk0501[address] [place], [place] [address]Dr. Garima Pulliam LYMPH # 2.0 103/ul Normal 1.2-3.[address] [facility] Comment on above: Performed By: #### C BC ####[facility] Cniuvkgwgl767[address] [place], [place] [address]Dr. Garima Pulliam Lymphocytes/100 WBC (Bld) 23.7 % Normal 20.5-60.[address] [facility] Comment on above: Performed By: #### C BC ####[facility] Bxminwsdre4975[address] [place], [place] [address]Dr. Garima Pulliam MANUAL DIFF REQ NO Normal [facility] Comment on above: Performed By: #### C BC ####[facility] Zehmqpmisx6321 [place] [address]Dr. Garima Pulliam MCH (RBC) [Entitic mass] 30.1 pg Normal 25.9-34.[address] [facility] Comment on above: Performed By: #### C BC ####[facility] Zsqswabree1439[address] [place], [place] [address]Dr. Garima Pulliam MCHC (RBC) [Mass/Vol] 33.6 g/dL Normal 29.9-35.[address] [facility] Comment on above: Performed By: #### C BC ####[facility] Fdjekjbdzu3898 [place] [address]DrAdalberto Pulliam MCV (RBC) [Entitic vol] 89.4 fL Normal 80.0-94.[address] [facility] Comment on above: Performed By: #### C BC ####[facility] Bdennxqhfk9724[address] [place], [place] [address]DrAdalberto Pulliam MONO # 0.8 103/ul Normal 0.3-0.[address] [facility] Comment on above: Performed By: #### C BC ####[facility] Jgjtcvoyuj6495[address] [place], [place] [address]DrAdalberto Pulliam Monocytes/100 WBC (Bld) 9.0 % Normal 1.7-12.[address] [facility] Comment on above: Performed By: #### C BC ####[facility] Sbcscxlhvm8959[address] [place], [place] [address]Dr. Garima Pulliam NEUT # 5.4 103/ul Normal 1.4-6.[address] [facility] Comment on above: Performed By: #### C BC ####[facility] Ghunuatsel5401[address] [place], [place] [address]DrAdalberto Pulliam Neutrophils/100 WBC (Bld) 63.2 % Normal 43.0-75.[address] [facility] Comment on above: Performed By: #### C BC ####[facility] Imxnvgdivx7314[address] [place], [place] [address]DrAdalberto Pulliam Platelet mean volume (Bld) [Entitic vol] 9.0 fL Critically low 9.5-13.[address] [facility] Comment on above: Performed By: #### C BC ####[facility] Tcvmpvjvnq1300[address] [place], [place] [address]DrAdalberto Pulliam PLT 218 103/ul Normal 150-[address] [facility] Comment on above: Performed By: #### C BC ####[facility] Slvtfjmupx445[address] [place], [place] [address]DrAdalberto Pulliam RBC 4.89 106/ul Normal 4.70-6.10 [facility] Comment on above: Performed By: #### C BC ####[facility] Falnflocod4118 [place] [address]Dr. Garima Pulliam WBC 8.5 103/ul Normal 4.0-11.0 [facility] Comment on above: Performed By: #### C BC ####[facility] Zvynvdniyu6995 [place] [address]Dr. Garima Heraclio CPKon 03-06-2023 CK [Catalytic activity/Vol] 191 U/L Normal 39-308 [facility] Comment on above: Performed By: #### C MP, BNP, CK ####[facility] Ffiwgnxvzc8527[address] [place], [place] [address]Dr. Garima Pulliam PROF 14(COMP METB)on 023 Albumin [Mass/Vol] 3.6 g/dL Normal 3.4-5.0 [facility] Comment on above: Performed By: #### C MP, BNP, CK ####[facility] Qbbakjpucv3355 [place] [address]Dr. Garima Pulliam Albumin/Globulin [Mass ratio] 1.2 {ratio} Normal [facility] Comment on above: Performed By: #### C MP, BNP, CK ####[facility] Ntqhtiejwy0308 [place] [address]Dr. Garima Pulliam ALP [Catalytic activity/Vol] 91 U/L Normal 46-116 [facility] Comment on above: Performed By: #### C MP, BNP, CK ####[facility] Moywbfnlvl6625 [place] [address]Dr. Garima Pulliam ALT [Catalytic activity/Vol] 33 U/L Normal 16-63 [facility] Comment on above: Performed By: #### C MP, BNP, CK ####[facility] Czsndowbuy0676 [place] [address]Dr. Garima Pulliam Anion gap [Moles/Vol] 10.3 mmol/L Normal [facility] Comment on above: Performed By: #### C MP, BNP, CK ####[facility] Dcmdkfmijq1588 [place] [address]Dr. Garima Pulliam AST [Catalytic activity/Vol] 17 U/L Normal 15-[address] [facility] Comment on above: Performed By: #### C MP, BNP, CK ####[facility] Kpnsreuktf1576 [place] [address]Dr. Garima Pulliam Bilirubin [Mass/Vol] 0.4 mg/dL Normal 0.2-1.0 [facility] Comment on above: Performed By: #### C MP, BNP, CK ####[facility] Csemaucvpr4606 [place] [address]Dr. Garima Pulliam Calcium [Mass/Vol] 9.1 mg/dL Normal 8.5-10.1 [facility] Comment on above: Performed By: #### C MP, BNP, CK ####[facility] Jgfrzshtuz6209[address] [place], [place] [address]Dr. Garima Pulliam Chloride [Moles/Vol] 102 mmol/L Normal 98-[address] [facility] Comment on above: Performed By: #### C MP, BNP, CK ####[facility] Fyetgveyhi4394 [place] [address]Dr. Garima Pulliam CO2 [Moles/Vol] 29.7 mmol/L Normal 21.0-32.0 [facility] Comment on above: Performed By: #### C MP, BNP, CK ####[facility] Danhtudgbh8006 [place] [address]Dr. Garima Pulliam Creatinine [Mass/Vol] 0.79 mg/dL Normal 0.70-1.30 [facility] Comment on above: Performed By: #### C MP, BNP, CK ####[facility] Snxjhvfhvu9073 [place] [address]Dr. Garima Pulliam EGFR-AF OMANI >60 Normal >=60 [facility] Comment on above: Performed By: #### C MP, BNP, CK ####[facility] Vjvvjhknon5623 [place] [address]Dr. Garima Pulliam EGFR-NON AF OMANI >60 Normal >=60 [facility] Comment on above: Performed By: #### C MP, BNP, CK ####[facility] Anqglbuyfg3410 [place] [address]Dr. Garima Pulliam Globulin (S) [Mass/Vol] 3.0 g/dL Normal [facility] Comment on above: Performed By: #### C MP, BNP, CK ####[facility] Ibkkiobvuk0240 [place] [address]Dr. Garima Pulliam Glucose [Mass/Vol] 202 mg/dL Critically high 74-106 T [facility] Comment on above: Performed By: #### C MP, BNP, CK ####[facility] Vxridnkpcu060[address] [place], [place] [address]Dr. Garima Pulliam Potassium [Moles/Vol] 4.0 mmol/L Normal 3.5-5.1 [facility] Comment on above: Performed By: #### C MP, BNP, CK ####[facility] Gommjqrond7877[address] [place], [place] [address]Dr. Garima Pulliam Protein [Mass/Vol] 6.6 g/dL Normal 6.4-8.2 [facility] Comment on above: Performed By: #### C MP, BNP, CK ####[facility] Jnhfwljgws649[address] [place], [place] [address]Dr. Garima Pulliam Sodium [Moles/Vol] 138 mmol/L Normal 136-145 [facility] Comment on above: Performed By: #### C MP, BNP, CK ####[facility] Stlypxjjon334[address] [place], [place] [address]Dr. Graima Pulliam Urea nitrogen [Mass/Vol] 10.0 mg/dL Normal 7.0-18.[address] [facility] Comment on above: Performed By: #### C MP, BNP, CK ####[facility] Yhcrmaoupu39[address] [place], [place] [address]Dr. Garima Pulliam Urea nitrogen/Creatinine [Mass ratio] 12.7 mg/mg Normal [facility] Comment on above: Performed By: #### C MP, BNP, CK ####[facility] Ekfvliwjce8449[address] [place], [place] [address]DrAdalberto Pulliam US VERONICA DOP LEG BILon 023 US VERONICA DOP LEG BENOIT Normal [facility] CBC AUTO DIFFon 01-13-2023 BASO # 0.0 103/ul Normal 0.0-0.1 [facility] Comment on above: Performed By: #### C BC ####[facility] Uhewaxjres8315 [place] [address]DrAdalberto Pulliam Basophils/100 WBC (Bld) 0.0 % Critically low 0.2-2.0 [facility] Comment on above: Performed By: #### C BC ####[facility] Kgkfzjykia3111 [place] [address]DrAdalberto Pulliam EO # 0.0 103/ul Normal 0.0-0.7 [facility] Comment on above: Performed By: #### C BC ####[facility] Nteplftwsb1109 [place] [address]DrAdalberto Pulliam Eosinophils/100 WBC (Bld) 0.0 % Critically low 0.9-7.0 [facility] Comment on above: Performed By: #### C BC ####[facility] Fmqcibmwdv1310 [place] [address]DrAdalberto Pulliam Erythrocyte distribution width (RBC) [Ratio] 13.2 % Normal 11.0-15.0 [facility] Comment on above: Performed By: #### C BC ####[facility] Gknenixoha9922 [place] [address]DrAdalberto Pulliam Hematocrit (Bld) [Volume fraction] 46.7 % Normal 42.0-54.0 [facility] Comment on above: Performed By: #### C BC ####[facility] Muzxmizsqd0900 [place] [address]DrAdalberto Pulliam Hemoglobin (Bld) [Mass/Vol] 15.6 g/dL Normal 14.0-18.0 [facility] Comment on above: Performed By: #### C BC ####[facility] Wxrcfqcmqy4141 [place] [address]DrAdalberto Pulliam IG # 0.01 10e3/ul Normal 0.00-0.03 [facility] Comment on above: Performed By: #### C BC ####[facility] Pllnvqmhiq5304 [place] [address]DrAdalberto Chapisrenu Pulliam IG % 0.2 % Normal 0.0-0.5 [facility] Comment on above: Performed By: #### C BC ####[facility] Sysvjdelak6068 [place] [id number] Chapisrenu Pulliam LYMPH # 0.8 103/ul Critically low 1.2-3.8 [facility] Comment on above: Performed By: #### C BC ####[facility] Clwhqgqhdc5735 [place] [address]DrAdalberto Pulliam Lymphocytes/100 WBC (Bld) 12.7 % Critically low 20.5-60.0 [facility] Comment on above: Performed By: #### C BC ####[facility] Fhcpplenbg9780 [place] [address]DrAdalberto Pulliam MANUAL DIFF REQ NO Normal [facility] Comment on above: Performed By: #### C BC ####[facility] Yzrnmaezmr3860 [place] [id number] Garima Heraclio MCH (RBC) [Entitic mass] 30.2 pg Normal 25.9-34.0 [facility] Comment on above: Performed By: #### C BC ####[facility] Yzqjfccnkv3314 [place] [address]DrAdalberto Chapisrenu Pulliam MCHC (RBC) [Mass/Vol] 33.4 g/dL Normal 29.9-35.2 [facility] Comment on above: Performed By: #### C BC ####[facility] Zqkqlhiilr9160 [place] [id number] Pulliam MCV (RBC) [Entitic vol] 90.3 fL Normal 80.0-94.0 [facility] Comment on above: Performed By: #### C BC ####[facility] Sovbibmyll4998 [place] [id number] Pulliam MONO # 0.1 103/ul Critically low 0.3-0.8 [facility] Comment on above: Performed By: #### C BC ####[facility] Imcaavkggs7900 [place] [address]Dr. Garima Pulliam Monocytes/100 WBC (Bld) 0.9 % Critically low 1.7-12.0 [facility] Comment on above: Performed By: #### C BC ####[facility] Rxcqqjntay4291 [place] [address]Dr. Garima Pulliam NEUT # 5.6 103/ul Normal 1.4-6.5 [facility] Comment on above: Performed By: #### C BC ####[facility] Rjeyxmovwo9374 [place] [address]Dr. Garima Pulliam Neutrophils/100 WBC (Bld) 86.2 % Critically high 43.0-75.0 [facility] Comment on above: Performed By: #### C BC ####[facility] Nalefqksdy7671 [place] [address]Dr. Garima Pulliam Platelet mean volume (Bld) [Entitic vol] 9.1 fL Critically low 9.5-13.5 [facility] Comment on above: Performed By: #### C BC ####[facility] Gycflhlotb98[address] [place], [place] [address]Dr. Garima Pulliam PLT 169 103/ul Normal 150-[address] [facility] Comment on above: Performed By: #### C BC ####[facility] Eojzwfocoa6059 [place] [address]Dr. Garima Pulliam RBC 5.17 106/ul Normal 4.70-6.[address] [facility] Comment on above: Performed By: #### C BC ####[facility] Rcszelzryo8517 [place] [id number]. Garima Pulliam WBC 6.5 103/ul Normal 4.0-11.[address] [facility] Comment on above: Performed By: #### C BC ####[facility] Naidpmjsjc565[address] [place], [place] [address]Dr. Garima Pulliam D-DIMERon 01-13-2023 D-DIMER 0.41 mg/L FEU Normal <=0.59 [facility] Comment on above: Performed By: #### D DIM ####[facility] Wrbxvrvnqp7632 [place] [address]Dr. Garima Pulliam D-DIMER COMMENTS SEE BELOW Normal [facility] Comment on above: Result Comment: Incr [...] generalized hospitalization. Performed By: #### D DIM ####[facility] Ajrbezvpep4464 [place] [address]Dr. Garima Pulliam PROF 14(COMP METB)on 023 Albumin [Mass/Vol] 3.4 g/dL Normal 3.4-5.0 [facility] Comment on above: Performed By: #### C MP ####[facility] Yasaoudtma7174 [place] [place] [address]Dr. Garima Pulliam Albumin/Globulin [Mass ratio] 1.3 {ratio} Normal [facility] Comment on above: Performed By: #### C MP ####[facility] Editljwmcv1158 [place] [address]Dr. Garima Pulliam ALP [Catalytic activity/Vol] 83 U/L Normal 46-116 [facility] Comment on above: Performed By: #### C MP ####[facility] Rtywcivvow0688 [place] [address]Dr. Garima Pulliam ALT [Catalytic activity/Vol] 25 U/L Normal 16-63 [facility] Comment on above: Performed By: #### C MP ####[facility] Gujizufrub5993 [place] [address]Dr. Garima Pulliam Anion gap [Moles/Vol] 14.5 mmol/L Normal [facility] Comment on above: Performed By: #### C MP ####[facility] Hnprkbznlc4239 [place] [id number]. Garima Pulliam AST [Catalytic activity/Vol] 19 U/L Normal 15-[address] [facility] Comment on above: Performed By: #### C MP ####[facility] Yhaaixtlyl8702 [place] [id number]. Garima Pulliam Bilirubin [Mass/Vol] 0.4 mg/dL Normal 0.2-1.[address] [facility] Comment on above: Performed By: #### C MP ####[facility] Ctgyszbfvd4490 [place] [id number]. Garima Pulliam Calcium [Mass/Vol] 8.7 mg/dL Normal 8.5-10.1 [facility] Comment on above: Performed By: #### C MP ####[facility] Fdottugaho4277 [place] [id number]. Garima Pulliam Chloride [Moles/Vol] 104 mmol/L Normal 98-[address] [facility] Comment on above: Performed By: #### C MP ####[facility] Mffbtlzimu7450 [place] [id number]. Garima Pulliam CO2 [Moles/Vol] 24.5 mmol/L Normal 21.0-32.0 [facility] Comment on above: Performed By: #### C MP ####[facility] Grgajkucqg8952 [place] [id number]. Garima Pulliam Creatinine [Mass/Vol] 0.70 mg/dL Normal 0.70-1.[address] [facility] Comment on above: Performed By: #### C MP ####[facility] Ewsmzdrlna0605 [place] [id number]. Garima Pulliam EGFR-AF OMANI >60 Normal >=60 [facility] Comment on above: Performed By: #### C MP ####[facility] Pfjccskqvc5278 [place] [id number]. Garima Pulliam EGFR-NON AF OMANI >60 Normal >=[address] [facility] Comment on above: Performed By: #### C MP ####[facility] Uyfeccfcjp[address] [place], [place] [id number]. Garima Pulliam Globulin (S) [Mass/Vol] 2.6 g/dL Normal [facility] Comment on above: Performed By: #### C MP ####[facility] Owoiqsiamb39[address] [place], [place] [address]Dr. Garima Pulliam Glucose [Mass/Vol] 196 mg/dL Critically high 74-106 T [facility] Comment on above: Performed By: #### C MP ####[facility] Hosvksrbbw800[address] [place], [place] [address]Dr. Garima Pulliam Potassium [Moles/Vol] 4.0 mmol/L Normal 3.5-5.1 [facility] Comment on above: Performed By: #### C MP ####[facility] Ehxvwqctke672[address] [place], [place] [address]Dr. Garima Pulliam Protein [Mass/Vol] 6.0 g/dL Critically low 6.4-8.2 Th [facility] Comment on above: Performed By: #### C MP ####[facility] Yjqirfafjy409[address] [place], [place] [address]Dr. Garima Pulliam Sodium [Moles/Vol] 139 mmol/L Normal 136-145 [facility] Comment on above: Performed By: #### C MP ####[facility] Cpmsnmqwec2833[address] [place], [place] [address]Dr. Garima Pulliam Urea nitrogen [Mass/Vol] 7.0 mg/dL Normal 7.0-18.0 [facility] Comment on above: Performed By: #### C MP ####[facility] Phjrphbgxj5189[address] [place], [place] [address]Dr. Garima Pulliam Urea nitrogen/Creatinine [Mass ratio] 10.0 mg/mg Normal [facility] Comment on above: Performed By: #### C MP ####[facility] Gartnewpzk2285[address] [place], [place] [address]Dr. Garima Pulliam BNPon 01-12-2023 Natriuretic peptide B (Bld) [Mass/Vol] 141.0 pg/mL Normal <=900.0 [facility] Comment on above: Performed By: #### C MP, BNP, HSTROPN ####[facility] Ysojvlulrh4940 [place] [id number]. Garima Heraclio CBC AUTO DIFFon 01-12-2023 BASO # 0.0 103/ul Normal 0.0-0.[address] [facility] Comment on above: Performed By: #### C BC ####[facility] Txaeyutujw355[address] [place], [place] [id number]. Garima Pulliam Basophils/100 WBC (Bld) 0.2 % Normal 0.2-2.[address] [facility] Comment on above: Performed By: #### C BC ####[facility] Phzabmzrtn5[address] [place], [place] [address]Dr. Garima Pulliam EO # 0.2 103/ul Normal 0.0-0.[address] [facility] Comment on above: Performed By: #### C BC ####[facility] Uzauiawdqa2635[address] [place], [place] [address]Dr. Garima Pulliam Eosinophils/100 WBC (Bld) 2.7 % Normal 0.9-7.[address] [facility] Comment on above: Performed By: #### C BC ####[facility] Tinavkeluh5212[address] [place], [place] [address]Dr. Chapisrenu Pulliam Erythrocyte distribution width (RBC) [Ratio] 13.3 % Normal 11.0-15.[address] [facility] Comment on above: Performed By: #### C BC ####[facility] Nubrfgkqdl886[address] [place], [place] [address]Dr. Garima Pulliam Hematocrit (Bld) [Volume fraction] 42.3 % Normal 42.0-54.[address] [facility] Comment on above: Performed By: #### C BC ####[facility] Twzxqinfni088[address] [place], [place] [address]Dr. Chapisrenu Pulliam Hemoglobin (Bld) [Mass/Vol] 14.3 g/dL Normal 14.0-18.[address] [facility] Comment on above: Performed By: #### C BC ####[facility] Fmwxqhzldl438[address] [place], [place] [address]Dr. Garima Pulliam IG # 0.02 10e3/ul Normal 0.00-0.[address] [facility] Comment on above: Performed By: #### C BC ####[facility] Irgcpjzezj6763 [place] [id number]. Chapisrenu Pulliam IG % 0.2 % Normal 0.0-0.5 [facility] Comment on above: Performed By: #### C BC ####[facility] Vdsmpzmule5594 [place] [id number]. Garima Pulliam LYMPH # 2.6 103/ul Normal 1.2-3.[address] [facility] Comment on above: Performed By: #### C BC ####[facility] Bvebyfstid5972 [place] [address]Dr. Chapisrenu Pulliam Lymphocytes/100 WBC (Bld) 29.6 % Normal 20.5-60.0 [facility] Comment on above: Performed By: #### C BC ####[facility] Tsnbevycva6150 [place] [address]Dr. Garima Pulliam MANUAL DIFF REQ NO Normal [facility] Comment on above: Performed By: #### C BC ####[facility] Bxpyokxssw7082 [place] [address]Dr. Garima Pulliam MCH (RBC) [Entitic mass] 30.2 pg Normal 25.9-34.0 [facility] Comment on above: Performed By: #### C BC ####[facility] Ucjqccjpgo1590 [place] [address]Dr. Garima Pulliam MCHC (RBC) [Mass/Vol] 33.8 g/dL Normal 29.9-35.[address] [facility] Comment on above: Performed By: #### C BC ####[facility] Xyaodulhno0194[address] [place], [place] [address]Dr. Garima Pulliam MCV (RBC) [Entitic vol] 89.2 fL Normal 80.0-94.[address] [facility] Comment on above: Performed By: #### C BC ####[facility] Untljjwxxd374[address] [place], [place] [address]Dr. Garima Pulliam MONO # 0.7 103/ul Normal 0.3-0.[address] [facility] Comment on above: Performed By: #### C BC ####[facility] Pwvgjtmzky5179 [place] [id number]. Garima Pulliam Monocytes/100 WBC (Bld) 8.3 % Normal 1.7-12.[address] [facility] Comment on above: Performed By: #### C BC ####[facility] Zbankeikid3056 [place] [id number]. Garima Pulliam NEUT # 5.1 103/ul Normal 1.4-6.[address] [facility] Comment on above: Performed By: #### C BC ####[facility] Pjuveydbbx4148 [place] [phone]. Garima Pulliam Neutrophils/100 WBC (Bld) 59.0 % Normal 43.0-75.[address] [facility] Comment on above: Performed By: #### C BC ####[facility] Ysdqohbmsc9294 [place] [address]Dr. Garima Pulliam Platelet mean volume (Bld) [Entitic vol] 8.7 fL Critically low 9.5-13.[address] [facility] Comment on above: Performed By: #### C BC ####[facility] Rurgcfgmzj6240 [place] [id number]. Garima Pulliam PLT 182 103/ul Normal 150-[address] [facility] Comment on above: Performed By: #### C BC ####[facility] Mdpmwyplpp6348 [place] [phone]. Garima Pulliam RBC 4.74 106/ul Normal 4.70-6.[address] [facility] Comment on above: Performed By: #### C BC ####[facility] Jhauzhpzzm9964 [place] [id number]. Garima Pulliam WBC 8.7 103/ul Normal 4.0-11.[address] [facility] Comment on above: Performed By: #### C BC ####[facility] Psvoblikln9620 [place] [id number]. Garima Pulliam [facility]19 [facility]on 12-25 SARS-CoV-2 (COVID-19) RNA MARIE+probe Ql (Unsp spec) Not detected Normal NOT DETECTED [facility] Comment on above: Result Comment: When [...] for this test is supported by the [place] of [employer] and Human Service's declaration that [...] be used). Performed By: #### C VDTB ####[facility] Iknyhyzell5310 [place] [address]Dr. Garima Pulliam PROF 14(COMP METB)on 023 Albumin [Mass/Vol] 3.6 g/dL Normal 3.4-5.0 [facility] Comment on above: Performed By: #### C MP, BNP, HSTROPN ####[facility] Swyyqwjwzz1604 [place] [address]Dr. Garima Pulliam Albumin/Globulin [Mass ratio] 1.5 {ratio} Normal [facility] Comment on above: Performed By: #### C MP, BNP, HSTROPN ####[facility] Llvmutlnqe1196 [place] [address]Dr. Garima Pulliam ALP [Catalytic activity/Vol] 79 U/L Normal 46-[address] [facility] Comment on above: Performed By: #### C MP, BNP, HSTROPN ####[facility] Czuhxbdtwm1013 [place] [address]Dr. Garima Pulliam ALT [Catalytic activity/Vol] 27 U/L Normal 16-63 [facility] Comment on above: Performed By: #### C MP, BNP, HSTROPN ####[facility] Fhbukirrqf1805 [place] [address]Dr. Garima Pulliam Anion gap [Moles/Vol] 11.7 mmol/L Normal [facility] Comment on above: Performed By: #### C MP, BNP, HSTROPN ####[facility] Pntwjfbhpx5464 [place] [address]Dr. Garima Pulliam AST [Catalytic activity/Vol] 21 U/L Normal 15-37 [facility] Comment on above: Performed By: #### C MP, BNP, HSTROPN ####[facility] Kzydtizyjr9676 [place] [address]Dr. Garima Pulliam Bilirubin [Mass/Vol] 0.3 mg/dL Normal 0.2-1.0 [facility] Comment on above: Performed By: #### C MP, BNP, HSTROPN ####[facility] Bkoyafqvev2114[address] [place], [place] [address]Dr. Garima Pulliam Calcium [Mass/Vol] 8.9 mg/dL Normal 8.5-10.1 [facility] Comment on above: Performed By: #### C MP, BNP, HSTROPN ####[facility] Zngiinaval835[address] [place], [place] [address]Dr. Garima Pulliam Chloride [Moles/Vol] 107 mmol/L Normal 98-107 [facility] Comment on above: Performed By: #### C MP, BNP, HSTROPN ####[facility] Swsvjjnynr9424[address] [place], [place] [address]Dr. Garima Pulliam CO2 [Moles/Vol] 26.0 mmol/L Normal 21.0-32.0 [facility] Comment on above: Performed By: #### C MP, BNP, HSTROPN ####[facility] Cmggrmeuuu036[address] [place], [place] [address]Dr. Garima Pulliam Creatinine [Mass/Vol] 0.65 mg/dL Critically low 0.70-1.30 [facility] Comment on above: Performed By: #### C MP, BNP, HSTROPN ####[facility] Lntmskkcjg3200 [place] [address]Dr. Garima Pulliam EGFR-AF OMANI >60 Normal >=60 [facility] Comment on above: Performed By: #### C MP, BNP, HSTROPN ####[facility] Wqnyxbkpel5645 [place] [address]Dr. Garima Pulliam EGFR-NON AF OMANI >60 Normal >=60 [facility] Comment on above: Performed By: #### C MP, BNP, HSTROPN ####[facility] Qxybtbxdzb386[address] [place], [place] [address]Dr. Garima Pulliam Globulin (S) [Mass/Vol] 2.4 g/dL Normal [facility] Comment on above: Performed By: #### C MP, BNP, HSTROPN ####[facility] Qlhqkgusfw904[address] [place], [place] [address]Dr. Garima Pulliam Glucose [Mass/Vol] 85 mg/dL Normal 74-106 [facility] Comment on above: Performed By: #### C MP, BNP, HSTROPN ####[facility] Mdtwdwxswl139[address] [place], [place] [address]Dr. Garima Pulliam Potassium [Moles/Vol] 3.7 mmol/L Normal 3.5-5.1 [facility] Comment on above: Performed By: #### C MP, BNP, HSTROPN ####[facility] Exzannzfww434[address] [place], [place] [address]Dr. Garima Pulliam Protein [Mass/Vol] 6.0 g/dL Critically low 6.4-8.2 [facility] Comment on above: Performed By: #### C MP, BNP, HSTROPN ####[facility] Xcncfkywoj117[address] [place], [place] [address]Dr. Garima Pulliam Sodium [Moles/Vol] 141 mmol/L Normal 136-145 [facility] Comment on above: Performed By: #### C MP, BNP, HSTROPN ####[facility] Olbsqvojmb905[address] [place], [place] [address]Dr. Garima Pulliam Urea nitrogen [Mass/Vol] 5.0 mg/dL Critically low 7.0-18.0 [facility] Comment on above: Performed By: #### C MP, BNP, HSTROPN ####[facility] Ekuhvbjkmt0324 [place] [address]Dr. Garima Pulliam Urea nitrogen/Creatinine [Mass ratio] 7.7 mg/mg Normal [facility] Comment on above: Performed By: #### C MP, BNP, HSTROPN ####[facility] Pvcogvbcno7[address] [place], [place] [address]Dr. Garima Pulliam PROTIMEon 01-12-2023 INR Coag (PPP) [Relative time] 1.16 {INR} Normal [facility] Comment on above: Performed By: #### P TT, PT ####[facility] Awvcagdejd[address] [place] [address]. Garima Pulliam INR GUIDELINES SEE BELOW Normal [facility] Comment on above: Result Comment: WESLEY RED INR: 2.0 - 3.0 CONDITIONS NOT LISTED BELOW 2.5 - 3.5 FOR PROSTHETIC HEART VALVE REPLACEMENT 2.5 - 3.5 RECURRENT THROMBOSIS Performed By: #### P TT, PT ####[facility] Vpisadzahp14[address] [place], [place] [address]Dr. Garima Pulliam PT Coag (PPP) [Time] 12.2 s Critically high 9.0-11.[address] [facility] Comment on above: Performed By: #### P TT, PT ####[facility] Tzhrlehmpg299[address] [place], [place] [address]Dr. Garima Pulliam PTTon 01-12-2023 aPTT Coag (Bld) [Time] 29.1 s Normal 22.3-36.[address] [facility] Comment on above: Performed By: #### P TT, PT ####[facility] Rqyvikvdsj6009[address] [place], [place] [address]Dr. Garima Pulliam TROPONIN, HIGH SENSITIVITYon 01-12-2023 HSTROP 10.3 pg/mL Normal 4.0-76.[address] [facility] Comment on above: Result Comment: CUT- OFF POINTS HAVE BEEN ESTABLISHED BASED ON THE FOURTH UNIVERSAL DEFINITIONS OF MYOCARDIALINFARCTION. THE UPPER REFERENCE LIMIT (URL) OF TROPONIN, DEFINED THE 99TH PERCENTILE OFcTnI DISTRIBUTION IN A REFERENCE POPULATION, HAS BEEN CONFIRMED THE DECISION THRESHOLDFOR WI DIAGNOSIS. Performed By: #### H STROPN ####[facility] Lqbwdgmjrp8053 [place] [address]Dr. Garima Pulliam HSTROP 9.2 pg/mL Normal 4.0-76.[address] [facility] Comment on above: Result Comment: CUT- OFF POINTS HAVE BEEN ESTABLISHED BASED ON THE FOURTH UNIVERSAL DEFINITIONS OF MYOCARDIALINFARCTION. THE UPPER REFERENCE LIMIT (URL) OF TROPONIN, DEFINED THE 99TH PERCENTILE OFcTnI DISTRIBUTION IN A REFERENCE POPULATION, HAS BEEN CONFIRMED THE DECISION THRESHOLDFOR [place] DIAGNOSIS. Performed By: #### C MP, BNP, HSTROPN ####[facility] Ntxsempmjf9688 [place] [address]Dr. Garima Pulliam XR CHEST 1 Von 01-12-2023 XR CHEST [address] [facility] XR CHEST 1 Von 01-01-2023 XR CHEST [address] [facility] CARDIAC NASH 3-6on 3 CK [Catalytic activity/Vol] 196 U/L Normal 39-308 [facility] Comment on above: Performed By: #### C MREP ####[facility] Zxmixblewx0126 [place] [address]Dr. Garima Pulliam CK.MB [Mass/Vol] 7.41 ng/mL Critically high <=3.[address] [facility] Comment on above: Performed By: #### C MREP ####[facility] Zogfwmuoev3963 [place] [address]Dr. Garima Pulliam HSTROP 10.3 pg/mL Normal 4.0-76.[address] [facility] Comment on above: Result Comment: CUT- OFF POINTS HAVE BEEN ESTABLISHED BASED ON THE FOURTH UNIVERSAL DEFINITIONS OF MYOCARDIALINFARCTION. THE UPPER REFERENCE LIMIT (URL) OF TROPONIN, DEFINED THE 99TH PERCENTILE OFcTnI DISTRIBUTION IN A REFERENCE POPULATION, HAS BEEN CONFIRMED THE DECISION THRESHOLDFOR [place] DIAGNOSIS. Performed By: #### C MREP ####[facility] Gjrutuvkbg0359 [place] [address]Dr. Garima Pulliam XR CHEST 1 Von 12-26-2022 XR CHEST [address] [facility] BNPon 12-25-2022 Natriuretic peptide B (Bld) [Mass/Vol] 98.0 pg/mL Normal <=900.[address] [facility] Comment on above: Performed By: #### B RETRIMMER, BMP, CMADM ####[facility] Emcenrngms4132 [place] [id number]. Garima Pulliam CARDIAC NASH ADMITon 023 CK [Catalytic activity/Vol] 208 U/L Normal 39-[address] [facility] Comment on above: Performed By: #### B RETRIMMER, BMP, CMADM ####[facility] Xtgubrqqlj0626 [place] [address]Dr. Garima Pulliam CK.MB [Mass/Vol] 7.63 ng/mL Critically high <=3.[address] [facility] Comment on above: Performed By: #### B RETRIMMER, BMP, CMADM ####[facility] Wpgevvzbsj2080 [place] [address]Dr. Garima Pulliam HSTROP 8.8 pg/mL Normal 4.0-76.[address] [facility] Comment on above: Result Comment: CUT- OFF POINTS HAVE BEEN ESTABLISHED BASED ON THE FOURTH UNIVERSAL DEFINITIONS OF MYOCARDIALINFARCTION. THE UPPER REFERENCE LIMIT (URL) OF TROPONIN, DEFINED THE 99TH PERCENTILE OFcTnI DISTRIBUTION IN A REFERENCE POPULATION, HAS BEEN CONFIRMED THE DECISION THRESHOLDFOR [place] DIAGNOSIS. Performed By: #### B RETRIMMER, BMP, CMADM ####[facility] Tmfsrwujas7170 [place] [address]Dr. Garima Pulliam DORIS 83 ng/mL Normal 16-[address] [facility] Comment on above: Performed By: #### B RETRIMMER, BMP, CMADM ####[facility] Oepdzbowaw3346 [place] [id number]. Garima Pulliam CBC AUTO DIFFon 12-25-2022 BASO # 0.0 103/ul Normal 0.0-0.[address] [facility] Comment on above: Performed By: #### C BC ####[facility] Hbepnenxpo3531 [place] [address]Dr. Garima Pulliam Basophils/100 WBC (Bld) 0.0 % Critically low 0.2-2.0 [facility] Comment on above: Performed By: #### C BC ####[facility] Ikfqalklfq356[address] [place], [place] [address]Dr. Garima Pulliam EO # 0.0 103/ul Normal 0.0-0.[address] [facility] Comment on above: Performed By: #### C BC ####[facility] Zqbrxhgqoz134[address] [place], [place] [address]Dr. Garima Pulliam Eosinophils/100 WBC (Bld) 0.7 % Critically low 0.9-7.0 [facility] Comment on above: Performed By: #### C BC ####[facility] Gncqvaufwi038[address] [place], [place] [address]Dr. Garima Pulliam Erythrocyte distribution width (RBC) [Ratio] 13.4 % Normal 11.0-15.[address] [facility] Comment on above: Performed By: #### C BC ####[facility] Kanutdibws5423[address] [place], [place] [address]Dr. Garima Pulliam Hematocrit (Bld) [Volume fraction] 42.9 % Normal 42.0-54.0 [facility] Comment on above: Performed By: #### C BC ####[facility] Mkjhmfxcxr6826[address] [place], [place] [address]Dr. Chapisrenu Pulliam Hemoglobin (Bld) [Mass/Vol] 14.4 g/dL Normal 14.0-18.[address] [facility] Comment on above: Performed By: #### C BC ####[facility] Fcaknbolvs506[address] [place], [place] [address]Dr. Garima Pulliam IG # 0.00 10e3/ul Normal 0.00-0.[address] [facility] Comment on above: Performed By: #### C BC ####[facility] Ewlzxyrtsd9694[address] [place], [place] [address]Dr. Garima Pulliam IG % 0.0 % Normal 0.0-0.[address] [facility] Comment on above: Performed By: #### C BC ####[facility] Upjpslectn0416[address] [place], [place] [address]Dr. Garima Pulliam LYMPH # 2.4 103/ul Normal 1.2-3.8 [facility] Comment on above: Performed By: #### C BC ####[facility] Vfjnqtpexp9432 [place] [address]Dr. Garima Pulliam Lymphocytes/100 WBC (Bld) 29.2 % Normal 20.5-60.0 [facility] Comment on above: Performed By: #### C BC ####[facility] Prnwxbmovj5134 [place] [address]DrAdalberto Pulliam MANUAL DIFF REQ NO Normal [facility] Comment on above: Performed By: #### C BC ####[facility] Plumqmvewj1984 [place] [address]Dr. Garima Pulliam MCH (RBC) [Entitic mass] 30.7 pg Normal 25.9-34.0 [facility] Comment on above: Performed By: #### C BC ####[facility] Vaeqmgobom3620[address] [place], [place] [address]Dr. Garima Pulliam MCHC (RBC) [Mass/Vol] 33.6 g/dL Normal 29.9-35.[address] [facility] Comment on above: Performed By: #### C BC ####[facility] Cbkvswaquv1340[address] [place], [place] [address]DrAdalberto Pulliam MCV (RBC) [Entitic vol] 91.5 fL Normal 80.0-94.[address] [facility] Comment on above: Performed By: #### C BC ####[facility] Titechrhgr3031 [place] [address]Dr. Garima Pulliam MONO # 0.0 103/ul Critically low 0.3-0.8 [facility] Comment on above: Performed By: #### C BC ####[facility] Rybupmjwlr866[address] [place], [place] [address]DrAdalberto Pulliam Monocytes/100 WBC (Bld) 8.0 % Normal 1.7-12.[address] [facility] Comment on above: Performed By: #### C BC ####[facility] Cwiarqamod0746[address] [place], [place] [address]DrAdalberto Pulliam NEUT # 5.1 103/ul Normal 1.4-6.5 [facility] Comment on above: Performed By: #### C BC ####[facility] Izhdcjcrik6124 [place] [id number]. Garima Pulliam Neutrophils/100 WBC (Bld) 62.8 % Normal 43.0-75.0 [facility] Comment on above: Performed By: #### C BC ####[facility] Fxpqkzsvbi3549 [place] [id number]. Garima Pulliam Platelet mean volume (Bld) [Entitic vol] 8.6 fL Critically low 9.5-13.5 [facility] Comment on above: Performed By: #### C BC ####[facility] Oyqkgmxrpa1294 [place] [id number]. Garima Pulliam PLT 200 103/ul Normal 150-[address] [facility] Comment on above: Performed By: #### C BC ####[facility] Afdtqqfnlk4639 [place] [id number]. Garima Pulliam RBC 4.69 106/ul Critically low 4.70-6.10 [facility] Comment on above: Performed By: #### C BC ####[facility] Tvcbfxphtm7402 [place] [id number]. Garima Pulliam WBC 8.2 103/ul Normal 4.0-11.[address] [facility] Comment on above: Performed By: #### C BC ####[facility] Jaodjmkexa5298 [place] [id number]. Garima Pulliam Covid-19 PCR ([facility])on SARS-CoV-2 (COVID-19) RNA MARIE+probe Ql (Unsp spec) Not detected Normal NOT DETECTED [facility] Comment on above: Result Comment: When [...] for this test is supported by the [place] of [employer] and Human Service's declaration that [...] be used). Performed By: #### C VDTBH ####[facility] Itmiqtkhkf[address] [place], [place] [address]Dr. Garima Pulliam INFLUENZA A AND B AGon 12-25 INFLUANE SEE BELOW Normal [facility] Comment on above: Result Comment: Nega tive for Flu A protein angiten. Infection due to Flu A cannot be ruled out. Flu A angiten in the sample may be below the detection limit of the test. Performed By: #### I NFLUAB ####[facility] [address] [place] [address]. Garima Pulliam INFLUBNEGH SEE BELOW Normal [facility] Comment on above: Result Comment: Nega tive for Flu B protein antigen. Infection due to Flu B cannot be ruled out. Flu B antigen in the sample may be below the detection limit of the test. Performed By: #### I NFLUAB ####[facility] Walbffhnfr[address] [place], [place] [address]Dr. renu Pulliam INFLUENZA A AG Negative Normal NEGATIVE SEE COMMENT [facility] Comment on above: Performed By: #### I NFLUAB ####[facility] [address]hvdjblaqs93[address] [place], [place] [address]Dr. Garima Pulliam INFLUENZA B AG Negative Normal NEGATIVE SEE COMMENT [facility] Comment on above: Performed By: #### I NFLUAB ####[facility] Cdbbobuegr[address] [place] [address]. Garima Pulliam PROF CHEM 8 (BAS METB)on Anion gap [Moles/Vol] 11.1 mmol/L Normal Th [facility] Comment on above: Performed By: #### B RETRIMMER, BMP, CMADM ####[facility] Axpfwmgyyy0258 [place] [id number]. Garima Pulliam Calcium [Mass/Vol] 8.5 mg/dL Normal 8.5-10.1 [facility] Comment on above: Performed By: #### B RETRIMMER, BMP, CMADM ####[facility] Ssitqvjvux5908 [place] [id number]. Garima Pulliam Chloride [Moles/Vol] 106 mmol/L Normal 98-107 [facility] Comment on above: Performed By: #### B RETRIMMER, BMP, CMADM ####[facility] Gsvbkvhfxt0474 [place] [address]Dr. Garima Pulliam CO2 [Moles/Vol] 27.4 mmol/L Normal 21.0-32.0 [facility] Comment on above: Performed By: #### B RETRIMMER, BMP, CMADM ####[facility] Jtzwjefjee2532 [place] [address]Dr. Garima Pulliam Creatinine [Mass/Vol] 0.65 mg/dL Critically low 0.70-1.30 [facility] Comment on above: Performed By: #### B RETRIMMER, BMP, CMADM ####[facility] Inkfrcbkfi4216 [place] [address]Dr. Garima Pulliam EGFR-AF OMANI >60 Normal >=60 [facility] Comment on above: Performed By: #### B RETRIMMER, BMP, CMADM ####[facility] Spmyorjstj0807 [place] [address]Dr. Garima Pulliam EGFR-NON AF OMANI >60 Normal >=60 [facility] Comment on above: Performed By: #### B RETRIMMER, BMP, CMADM ####[facility] Fgopkzgkqo7619 [place] [address]Dr. Garima Pulliam Glucose [Mass/Vol] 140 mg/dL Critically high 74-106 [facility] Comment on above: Performed By: #### B RETRIMMER, BMP, CMADM ####[facility] Moybunrtmp6941 [place] [address]Dr. Garima Pulliam Potassium [Moles/Vol] 3.5 mmol/L Normal 3.5-5.1 [facility] Comment on above: Performed By: #### B RETRIMMERMARVIN, NANCY ####[facility] Bbxtgktdja7575 [place] [address]Dr. Chapisrenu Pulliam Sodium [Moles/Vol] 141 mmol/L Normal 136-145 [facility] Comment on above: Performed By: #### B RETRIMMERMARVIN, CMAANA ROSA ####[facility] Ifpuzbxkad8180 [place] [address]Dr. Garima Pulliam Urea nitrogen [Mass/Vol] 8.0 mg/dL Normal 7.0-18.0 [facility] Comment on above: Performed By: #### B MARVIN FRENCH CMADM ####[facility] Spdnrosgyw4180 [place] [address]Dr. Garima Pulliam Urea nitrogen/Creatinine [Mass ratio] 12.3 mg/mg Normal [facility] Comment on above: Performed By: #### B MARVIN FRENCH CMAANA ROSA ####[facility] Bntvmqnkgi2098 [place] [address]Dr. Garima Heraclio CARDIAC NASH ADMITon 023 CK [Catalytic activity/Vol] 165 U/L Normal 39-308 [facility] Comment on above: Performed By: #### B NANCY HERNANDEZ ####[facility] Pneeqiuofm9[address] [place], [place] [address]Dr. Garima Pulliam CK.MB [Mass/Vol] 6.48 ng/mL Critically high <=3.[address] [facility] Comment on above: Performed By: #### B MP, CMADM ####[facility] Ijocaiuewi18[address] [place], [place] [address]Dr. Garima Heraclio HSTROP 11.7 pg/mL Normal 4.0-76.[address] [facility] Comment on above: Result Comment: CUT- OFF POINTS HAVE BEEN ESTABLISHED BASED ON THE FOURTH UNIVERSAL DEFINITIONS OF MYOCARDIALINFARCTION. THE UPPER REFERENCE LIMIT (URL) OF TROPONIN, DEFINED THE 99TH PERCENTILE OFcTnI DISTRIBUTION IN A REFERENCE POPULATION, HAS BEEN CONFIRMED THE DECISION THRESHOLDFOR [place] DIAGNOSIS. Performed By: #### B DAVID, CMADM ####[facility] Uzfumggzrk9797 [place] [id number]. Garima Pulliam DORIS 83 ng/mL Normal 16-[address] [facility] Comment on above: Performed By: #### B MP, CMADM ####[facility] Asvsjliuwg8966 [place] [phone]. Garima Pulliam CBC AUTO DIFFon 12-10-2022 BASO # 0.0 103/ul Normal 0.0-0.[address] [facility] Comment on above: Performed By: #### C BC ####[facility] Gcmmnqcooq3304 [place] [id number]. Garima Pulliam Basophils/100 WBC (Bld) 0.3 % Normal 0.2-2.[address] [facility] Comment on above: Performed By: #### C BC ####[facility] Mxvqxhbwag3943 [place] [address]Dr. Garima Pulliam EO # 0.1 103/ul Normal 0.0-0.[address] [facility] Comment on above: Performed By: #### C BC ####[facility] Lmnrwttlqn1077 [place] [id number]. Garima Pulliam Eosinophils/100 WBC (Bld) 0.4 % Critically low 0.9-7.[address] [facility] Comment on above: Performed By: #### C BC ####[facility] Xeztconogk6944 [place] [id number]. Garima Pulliam Erythrocyte distribution width (RBC) [Ratio] 13.2 % Normal 11.0-15.[address] [facility] Comment on above: Performed By: #### C BC ####[facility] [address]mm[address] [place], [place] [id number]. Garima Pulliam Hematocrit (Bld) [Volume fraction] 42.4 % Normal 42.0-54.[address] [facility] Comment on above: Performed By: #### C BC ####[facility] Otkukvzfoo[address] [place], [place] [id number]. Garima Pulliam Hemoglobin (Bld) [Mass/Vol] 14.4 g/dL Normal 14.0-18.[address] [facility] Comment on above: Performed By: #### C BC ####[facility] Hnbqsxhzqm9764 [place] [id number]. Garima Pulliam IG # 0.05 10e3/ul Critically high 0.00-0.03 [facility] Comment on above: Performed By: #### C BC ####[facility] Aedaephebw7697 [place] [id number]. Garima Pulliam IG % 0.4 % Normal 0.0-0.5 [facility] Comment on above: Performed By: #### C BC ####[facility] Rsbxwzohnp1043 [place] [address]Dr. Garima Pulliam LYMPH # 0.8 103/ul Critically low 1.2-3.8 [facility] Comment on above: Performed By: #### C BC ####[facility] Gqcrtghlna5318 [place] [address]Dr. Garima Pulliam Lymphocytes/100 WBC (Bld) 6.5 % Critically low 20.5-60.0 [facility] Comment on above: Performed By: #### C BC ####[facility] Vdiufwjuxf3672 [place] [address]Dr. Garima Pulliam MANUAL DIFF REQ NO Normal [facility] Comment on above: Performed By: #### C BC ####[facility] Mnmxdugrlk9173 [place] [address]Dr. Garima Pulliam MCH (RBC) [Entitic mass] 30.5 pg Normal 25.9-34.0 [facility] Comment on above: Performed By: #### C BC ####[facility] Bxqastncdo[address] [place], [place] [address]Dr. Garima Pulliam MCHC (RBC) [Mass/Vol] 34.0 g/dL Normal 29.9-35.[address] [facility] Comment on above: Performed By: #### C BC ####[facility] Ywtlorlnhz[address] [place], [place] [address]Dr. Garima Pulliam MCV (RBC) [Entitic vol] 89.8 fL Normal 80.0-94.0 [facility] Comment on above: Performed By: #### C BC ####[facility] Ospvhvtfil7303 [place] [id number]. Garima Pulliam MONO # 0.2 103/ul Critically low 0.3-0.8 [facility] Comment on above: Performed By: #### C BC ####[facility] Twudifqykk9408 [place] [id number]. Garima Pulliam Monocytes/100 WBC (Bld) 2.0 % Normal 1.7-12.[address] [facility] Comment on above: Performed By: #### C BC ####[facility] Vizmfiypiu9648 [place] [id number]. Garima Pulliam NEUT # 10.5 103/ul Critically high 1.4-6.5 [facility] Comment on above: Performed By: #### C BC ####[facility] Ecsuptcaqs9466 [place] [phone]. Garima Pulliam Neutrophils/100 WBC (Bld) 90.4 % Critically high 43.0-75.[address] [facility] Comment on above: Performed By: #### C BC ####[facility] Scftjqhhrw5909 [place] [phone]. Garima Pulliam Platelet mean volume (Bld) [Entitic vol] 9.4 fL Critically low 9.5-13.[address] [facility] Comment on above: Performed By: #### C BC ####[facility] Zcfwwwphxq7498 [place] [id number]. Garima Pulliam PLT 198 103/ul Normal 150-[address] [facility] Comment on above: Performed By: #### C BC ####[facility] Wcqpcvmyjz6422 [place] [phone]. Garima Pulliam RBC 4.72 106/ul Normal 4.70-6.[address] [facility] Comment on above: Performed By: #### C BC ####[facility] Aipjrurxnf6803 [place] [phone]. Garima Pulliam WBC 11.6 103/ul Critically high 4.0-11.0 [facility] Comment on above: Performed By: #### C BC ####[facility] Bpbdqcraes3881 [place] [address]Dr. Garima Pulliam PROF CHEM 8 (BAS METB)on Anion gap [Moles/Vol] 11.3 mmol/L Normal [facility] Comment on above: Performed By: #### B DAVID, CMADM ####[facility] Onkujlhdfx0016 [place] [address]Dr. Garima Pulliam Calcium [Mass/Vol] 8.9 mg/dL Normal 8.5-10.1 [facility] Comment on above: Performed By: #### B DAVID, NANYC ####[facility] Sccztlvpkh3572 [place] [address]Dr. Garima Pulliam Chloride [Moles/Vol] 103 mmol/L Normal 98-107 [facility] Comment on above: Performed By: #### B DAVID, CMADM ####[facility] Qxtygnusem[address] [place], [place] [address]Dr. Garima Pulliam CO2 [Moles/Vol] 28.2 mmol/L Normal 21.0-32.0 [facility] Comment on above: Performed By: #### Trae HERNANDEZ, NANCY ####[facility] Awwrktbeyr1720 [place] [address]Dr. Garima Pulliam Creatinine [Mass/Vol] 0.60 mg/dL Critically low 0.70-1.30 [facility] Comment on above: Performed By: #### Trae HERNANDEZ, CMAANA ROSA ####[facility] Vlbtqlftav5573 [place] [address]Dr. Garima Pulliam EGFR-AF OMANI >60 Normal >=60 [facility] Comment on above: Performed By: #### B DAVID, CMAANA ROSA ####[facility] Eplhayuzns5439 [place] [address]Dr. Garima Pulliam EGFR-NON AF OMANI >60 Normal >=60 [facility] Comment on above: Performed By: #### B DAVID, CMADM ####[facility] Jdqmgcropj7217 [place] [address]Dr. Garima Pulliam Glucose [Mass/Vol] 166 mg/dL Critically high 74-106 [facility] Comment on above: Performed By: #### B DAVID, CMADM ####[facility] Gjrlsxeaxp1508 [place] [address]Dr. Garima Pulliam Potassium [Moles/Vol] 3.5 mmol/L Normal 3.5-5.1 [facility] Comment on above: Performed By: #### B DAVID, CMADM ####[facility] Ibqknnzcgr88[address] [place], [place] [address]Dr. Garima Pulliam Sodium [Moles/Vol] 139 mmol/L Normal 136-145 [facility] Comment on above: Performed By: #### B DAVID, CMADM ####[facility] Vxgvcjkwkt63[address] [place], [place] [address]Dr. Chapisrenu Heraclio Urea nitrogen [Mass/Vol] 9.0 mg/dL Normal 7.0-18.0 [facility] Comment on above: Performed By: #### B DAVID, CMAANA ROSA ####[facility] Popxyaipup8[address] [place], [place] [address]Dr. Garima Pulliam Urea nitrogen/Creatinine [Mass ratio] 15.0 mg/mg Normal [facility] Comment on above: Performed By: #### B DAVID, CMAANA ROSA ####[facility] Myscoqgtlo0833[address] [place], [place] [address]Dr. Garima Heraclio XR CHEST 1 Von 12-10-2022 XR CHEST [address] [facility] BNPon 11-27-2022 Natriuretic peptide B (Bld) [Mass/Vol] 95.0 pg/mL Normal <=900.0 [facility] Comment on above: Performed By: #### C MP, HSTROPN, BNP ####[facility] Rynzzayzew[address] [place], [place] [address]Dr. Garima Pulliam CBC AUTO DIFFon 11-27-2022 BASO # 0.0 103/ul Normal 0.0-0.1 [facility] Comment on above: Performed By: #### C BC ####[facility] Tfzipytiel01[address] [place], [place] [address]Dr. Garima Pulliam Basophils/100 WBC (Bld) 0.2 % Normal 0.2-2.0 [facility] Comment on above: Performed By: #### C BC ####[facility] Gbgolteakd1977 [place] [id number]. Garima Pulliam EO # 0.2 103/ul Normal 0.0-0.[address] [facility] Comment on above: Performed By: #### C BC ####[facility] Sgbiovwart2083 [place] [phone]. Garima Pulliam Eosinophils/100 WBC (Bld) 2.0 % Normal 0.9-7.0 [facility] Comment on above: Performed By: #### C BC ####[facility] Yvxvtgnozm0847[address] [place], [place] [address]Dr. Garima Pulliam Erythrocyte distribution width (RBC) [Ratio] 13.2 % Normal 11.0-15.0 [facility] Comment on above: Performed By: #### C BC ####[facility] Xglxlcolyf5067[address] [place], [place] [address]Dr. Garima Pulliam Hematocrit (Bld) [Volume fraction] 42.4 % Normal 42.0-54.0 [facility] Comment on above: Performed By: #### C BC ####[facility] Tadcvakbsq97[address] [place], [place] [address]Dr. Garima Pulliam Hemoglobin (Bld) [Mass/Vol] 14.4 g/dL Normal 14.0-18.0 [facility] Comment on above: Performed By: #### C BC ####[facility] Otwxlwrdqq[address] [place], [place] [address]Dr. Garima Pulliam IG # 0.04 10e3/ul Critically high 0.00-0.03 [facility] Comment on above: Performed By: #### C BC ####[facility] Zorzzkszxj8925[address] [place], [place] [address]Dr. Garima Pulliam IG % 0.4 % Normal 0.0-0.[address] [facility] Comment on above: Performed By: #### C BC ####[facility] Wlmcnlgfir7[address] [place], [place] [address]Dr. Garima Pulliam LYMPH # 2.2 103/ul Normal 1.2-3.[address] [facility] Comment on above: Performed By: #### C BC ####[facility] Ayyzwbkoza9385 [place] [id number]. Chapisrenu Pulliam Lymphocytes/100 WBC (Bld) 21.5 % Normal 20.5-60.0 [facility] Comment on above: Performed By: #### C BC ####[facility] Bglsoqsyev2900 [place] [id number]. Garima Pulliam MANUAL DIFF REQ NO Normal [facility] Comment on above: Performed By: #### C BC ####[facility] Xszhhdshws3135 [place] [id number]. Garima Pulliam MCH (RBC) [Entitic mass] 30.4 pg Normal 25.9-34.[address] [facility] Comment on above: Performed By: #### C BC ####[facility] Vbwlqlokon4853 [place] [id number]. Garima Pulliam MCHC (RBC) [Mass/Vol] 34.0 g/dL Normal 29.9-35.[address] [facility] Comment on above: Performed By: #### C BC ####[facility] Rareeqmitr2090 [place] [id number]. Garima Pulliam MCV (RBC) [Entitic vol] 89.6 fL Normal 80.0-94.[address] [facility] Comment on above: Performed By: #### C BC ####[facility] Fxylsgzsnl6806 [place] [id number]. Garima Pulliam MONO # 0.8 103/ul Normal 0.3-0.[address] [facility] Comment on above: Performed By: #### C BC ####[facility] Hlsqgdqodc8460 [place] [phone]. Garima Pulliam Monocytes/100 WBC (Bld) 7.7 % Normal 1.7-12.[address] [facility] Comment on above: Performed By: #### C BC ####[facility] Khfyeofged8365 [place] [id number]. Garima Pulliam NEUT # 7.0 103/ul Critically high 1.4-6.5 [facility] Comment on above: Performed By: #### C BC ####[facility] Xwhywbwifm1729 [place] [address]Dr. Garima Pulliam Neutrophils/100 WBC (Bld) 68.2 % Normal 43.0-75.0 [facility] Comment on above: Performed By: #### C BC ####[facility] Hdywvomiuw7973 [place] [phone]. Garima Pulliam Platelet mean volume (Bld) [Entitic vol] 8.9 fL Critically low 9.5-13.5 [facility] Comment on above: Performed By: #### C BC ####[facility] Bzrffofubf5550 [place] [address]Dr. Garima Pluliam PLT 222 103/ul Normal 150-450 [facility] Comment on above: Performed By: #### C BC ####[facility] Lgeujjtwis1186 [place] [address]Dr. Garima Pulliam RBC 4.73 106/ul Normal 4.70-6.10 [facility] Comment on above: Performed By: #### C BC ####[facility] Hjvztakmhl[address] [place], [place] [address]Dr. Garima Pulliam WBC 10.3 103/ul Normal 4.0-11.0 [facility] Comment on above: Performed By: #### C BC ####[facility] Jlkhsimjfe2874 [place] [address]DrAdalberto Pulliam PROF 14(COMP METB)on 023 Albumin [Mass/Vol] 3.7 g/dL Normal 3.4-5.0 [facility] Comment on above: Performed By: #### C MP, HSTROPN, BNP ####[facility] Voscrxxypr2120 [place] [id number]. Garima Pulliam Albumin/Globulin [Mass ratio] 1.5 {ratio} Normal [facility] Comment on above: Performed By: #### C MP, HSTROPN, BNP ####[facility] Sujrmcybgj8877 [place] [phone] Pulliam ALP [Catalytic activity/Vol] 79 U/L Normal 46-116 [facility] Comment on above: Performed By: #### C DAVID HSTROPN, BNP ####[facility] Gocbpjvyal5325 [place] [address]Dr. Garima Pulliam ALT [Catalytic activity/Vol] 32 U/L Normal 16-63 [facility] Comment on above: Performed By: #### C DAVID, HSTROPN, BNP ####[facility] Wdhnytrzwg4841 [place] [address]Dr. Garima Pulliam Anion gap [Moles/Vol] 9.5 mmol/L Normal [facility] Comment on above: Performed By: #### C DAVID HSTROPN, BNP ####[facility] Npheeedppq5[address] [place], [place] [address]Dr. Garima Pulliam AST [Catalytic activity/Vol] 25 U/L Normal 15-37 [facility] Comment on above: Performed By: #### C DAVID, HSTROPN, BNP ####[facility] Ynmphozhok75[address] [place], [place] [address]Dr. Garima Pulliam Bilirubin [Mass/Vol] 0.4 mg/dL Normal 0.2-1.0 [facility] Comment on above: Performed By: #### C DAVID HSTROPN, BNP ####[facility] Bkbmkgktre16[address] [place], [place] [address]Dr. Garima Pulliam Calcium [Mass/Vol] 8.9 mg/dL Normal 8.5-10.1 [facility] Comment on above: Performed By: #### C DAVID, HSTROPN, BNP ####[facility] Bxnpfkuoot1972 [place] [address]Dr. Garima Pulliam Chloride [Moles/Vol] 103 mmol/L Normal 98-[address] [facility] Comment on above: Performed By: #### C DAVID, HSTROPN, BNP ####[facility] Hkhvxfwcrn2171 [place] [address]Dr. Garima Pulliam CO2 [Moles/Vol] 28.6 mmol/L Normal 21.0-32.0 [facility] Comment on above: Performed By: #### C MP, HSTROPN, BNP ####[facility] Gwrluibbab8714 [place] [address]Dr. Garima Pulliam Creatinine [Mass/Vol] 0.72 mg/dL Normal 0.70-1.30 [facility] Comment on above: Performed By: #### C MP, HSTROPN, BNP ####[facility] Rhzsfwsvzk3487 [place] [address]Dr. Garima Pulliam EGFR-AF OMANI >60 Normal >=60 [facility] Comment on above: Performed By: #### C MP, HSTROPN, BNP ####[facility] Olzfpdoixn17[address] [place], [place] [address]Dr. Garima Pulliam EGFR-NON AF OMANI >60 Normal >=60 [facility] Comment on above: Performed By: #### C MP, HSTROPN, BNP ####[facility] Rgmovwrwsb[address] [place], [place] [address]Dr. Garima Pulliam Globulin (S) [Mass/Vol] 2.5 g/dL Normal [facility] Comment on above: Performed By: #### C MP, HSTROPN, BNP ####[facility] Ljeiazafhb4[address] [place], [place] [address]Dr. Garima Pulliam Glucose [Mass/Vol] 114 mg/dL Critically high 74-106 [facility] Comment on above: Performed By: #### C MP, HSTROPN, BNP ####[facility] Dyadydayjk9[address] [place], [place] [address]Dr. Garima Pulliam Potassium [Moles/Vol] 4.1 mmol/L Normal 3.5-5.1 [facility] Comment on above: Performed By: #### C MP, HSTROPN, BNP ####[facility] Edvhiisbyw07[address] [place], [place] [address]Dr. Garima Pulliam Protein [Mass/Vol] 6.2 g/dL Critically low 6.4-8.2 [facility] Comment on above: Performed By: #### C MP, HSTROPN, BNP ####[facility] Obflqftlfg8025 [place] [address]Dr. Garima Pulliam Sodium [Moles/Vol] 137 mmol/L Normal 136-145 [facility] Comment on above: Performed By: #### C MP, HSTROPN, BNP ####[facility] Angkevkice1576 [place] [address]Dr. Garima Pulliam Urea nitrogen [Mass/Vol] 13.0 mg/dL Normal 7.0-18.[address] [facility] Comment on above: Performed By: #### C MP, HSTROPN, BNP ####[facility] Moiqmponfv4932 [place] [address]Dr. Chapisrenu Pulliam Urea nitrogen/Creatinine [Mass ratio] 18.1 mg/mg Normal [facility] Comment on above: Performed By: #### C MP, HSTROPN, BNP ####[facility] Gqzzunrojr30[address] [place], [place] [address]Dr. Garima Pulliam TROPONIN, HIGH SENSITIVITYon 11-27-2022 HSTROP 11.8 pg/mL Normal 4.0-76.1 [facility] Comment on above: Result Comment: CUT- OFF POINTS HAVE BEEN ESTABLISHED BASED ON THE FOURTH UNIVERSAL DEFINITIONS OF MYOCARDIALINFARCTION. THE UPPER REFERENCE LIMIT (URL) OF TROPONIN, DEFINED THE 99TH PERCENTILE OFcTnI DISTRIBUTION IN A REFERENCE POPULATION, HAS BEEN CONFIRMED THE DECISION THRESHOLDFOR [place] DIAGNOSIS. Performed By: #### C MP, HSTROPN, BNP ####[facility] Pmqospoxls5945 [place] [address]Dr. Garima Pulliam XR CHEST 1 Von 11-27-2022 XR CHEST [address] [facility] BNPon 11-20-2022 Natriuretic peptide B (Bld) [Mass/Vol] 73.0 pg/mL Normal <=900.[address] [facility] Comment on above: Performed By: #### B MP, HSTROPN, BNP ####[facility] Z[address]hhlhxucr[address] [place], [place] [address]Dr. Chapisrenu Pulliam CBC AUTO DIFFon 11-20-2022 BASO # 0.0 103/ul Normal 0.0-0.1 [facility] Comment on above: Performed By: #### C BC ####[facility] Mwcdmhgrdn7720 [place] [id number]. Garima Pulliam Basophils/100 WBC (Bld) 0.3 % Normal 0.2-2.[address] [facility] Comment on above: Performed By: #### C BC ####[facility] [address]nuwhuw[address] [place], [place] [id number]. Garima Pulliam EO # 0.2 103/ul Normal 0.0-0.[address] [facility] Comment on above: Performed By: #### C BC ####[facility] Tqlclbrdbb[address] [place], [place] [id number]. Garima Pulliam Eosinophils/100 WBC (Bld) 2.1 % Normal 0.9-7.[address] [facility] Comment on above: Performed By: #### C BC ####[facility] Yhkiwaoavg[address] [place], [place] [address]Dr. Garima Pulliam Erythrocyte distribution width (RBC) [Ratio] 13.2 % Normal 11.0-15.0 [facility] Comment on above: Performed By: #### C BC ####[facility] Ozjwujxpoo[address] [place], [place] [id number]. Garima Pulliam Hematocrit (Bld) [Volume fraction] 43.4 % Normal 42.0-54.0 [facility] Comment on above: Performed By: #### C BC ####[facility] Oivkuoasil[address] [place], [place] [address]Dr. Garima Pulliam Hemoglobin (Bld) [Mass/Vol] 14.6 g/dL Normal 14.0-18.[address] [facility] Comment on above: Performed By: #### C BC ####[facility] Kwnhfwcepj[address] [place], [place] [address]Dr. Garima Pulliam IG # 0.02 10e3/ul Normal 0.00-0.[address] [facility] Comment on above: Performed By: #### C BC ####[facility] Lnbljaeagt466[address] [place], [place] [address]Dr. Garima Pulliam IG % 0.2 % Normal 0.0-0.[address] [facility] Comment on above: Performed By: #### C BC ####[facility] Mrhtddwada3482 [place] [id number]. Chapisrenu Heraclio LYMPH # 2.1 103/ul Normal 1.2-3.8 [facility] Comment on above: Performed By: #### C BC ####[facility] Ncagvcjvbo2272 [place] [id number]. Garima Pulliam Lymphocytes/100 WBC (Bld) 19.2 % Critically low 20.5-60.0 [facility] Comment on above: Performed By: #### C BC ####[facility] Ufyjhiencp1441 [place] [id number]. Garima Pulliam MANUAL DIFF REQ NO Normal [facility] Comment on above: Performed By: #### C BC ####[facility] Sqlltoxasi5019 [place] [id number]. Garima Pulliam MCH (RBC) [Entitic mass] 30.4 pg Normal 25.9-34.0 [facility] Comment on above: Performed By: #### C BC ####[facility] Reazwaqzik9328 [place] [id number]. Garima Pulliam MCHC (RBC) [Mass/Vol] 33.6 g/dL Normal 29.9-35.2 [facility] Comment on above: Performed By: #### C BC ####[facility] Ozlrtojzrg3492 [place] [id number]. Garima Pulliam MCV (RBC) [Entitic vol] 90.4 fL Normal 80.0-94.0 [facility] Comment on above: Performed By: #### C BC ####[facility] Qqeouongmx3449 [place] [address]Dr. Garima Pulliam MONO # 0.6 103/ul Normal 0.3-0.[address] [facility] Comment on above: Performed By: #### C BC ####[facility] Dareegqlfe8377 [place] [id number]. Garima Pulliam Monocytes/100 WBC (Bld) 5.8 % Normal 1.7-12.0 [facility] Comment on above: Performed By: #### C BC ####[facility] Uromhrdplk9977 [place] [id number]. Garima Pulliam NEUT # 7.8 103/ul Critically high 1.4-6.5 [facility] Comment on above: Performed By: #### C BC ####[facility] Ihxxvviucs1345 [place] [id number]. Garima Pulliam Neutrophils/100 WBC (Bld) 72.4 % Normal 43.0-75.[address] [facility] Comment on above: Performed By: #### C BC ####[facility] Wcdhgydvzl0523 [place] [id number]. Garima Pulliam Platelet mean volume (Bld) [Entitic vol] 8.7 fL Critically low 9.5-13.[address] [facility] Comment on above: Performed By: #### C BC ####[facility] Tuukqyxuwj4951 [place] [address]Dr. Garima Pulliam PLT 184 103/ul Normal 150-[address] [facility] Comment on above: Performed By: #### C BC ####[facility] Yggywffufg3247 [place] [id number]. Garima Pulliam RBC 4.80 106/ul Normal 4.70-6.[address] [facility] Comment on above: Performed By: #### C BC ####[facility] Vowwmrgcds5217 [place] [id number]. Garima Pulliam WBC 10.8 103/ul Normal 4.0-11.[address] [facility] Comment on above: Performed By: #### C BC ####[facility] Vaxjndqcgb[address] [place], [place] [address]Dr. Garima Pulliam Covid-19 PCR (CVDTB)on 10-24 SARS-CoV-2 (COVID-19) RNA MARIE+probe Ql (Unsp spec) Not detected Normal NOT DETECTED [facility] Comment on above: Result Comment: When [...] for this test is supported by the [employer] of [employer] and Human Service's declaration that [...] be used). Performed By: #### C VDTB ####[facility] Xiudxulapn95[address] [place], [place] [address]Dr. Garima Pulliam INFLUENZA A AND B AGon 11-20 [facility] SEE BELOW Normal [facility] Comment on above: Result Comment: Nega tive for Flu A protein angiten. Infection due to Flu A cannot be ruled out. Flu A angiten in the sample may be below the detection limit of the test. Performed By: #### I NFLUAB ####[facility] Ddyvwrtlxk66[address] [place], [place] [address]Dr. Garima Pulliam INFLUBNEG SEE BELOW Normal [facility] Comment on above: Result Comment: Nega tive for Flu B protein antigen. Infection due to Flu B cannot be ruled out. Flu B antigen in the sample may be below the detection limit of the test. Performed By: #### I NFLUAB ####[facility] Iduxteaksm21[address] [place], [place] [address]Dr. Garima Pulliam INFLUENZA A AG Negative Normal NEGATIVE SEE COMMENT [facility] Comment on above: Performed By: #### I NFLUAB ####[facility] Bjwnmpmspw1113[address] [place], [place] [address]Dr. Garima Pulliam INFLUENZA B AG Negative Normal NEGATIVE SEE COMMENT [facility] Comment on above: Performed By: #### I NFLUAB ####[facility] Twblivxgve5524[address] [place], [place] [address]Dr. Garima Pulliam PROF CHEM 8 (BAS METB)on Anion gap [Moles/Vol] 8.2 mmol/L Normal [facility] Comment on above: Performed By: #### B MP, HSTROPN, BNP ####[facility] Mylrxvqzpt4144 [place] [address]Dr. Garima Pulliam Calcium [Mass/Vol] 8.7 mg/dL Normal 8.5-10.1 [facility] Comment on above: Performed By: #### B MP, HSTROPN, BNP ####[facility] Xcecjpdcko7200 [place] [address]Dr. Garima Pulliam Chloride [Moles/Vol] 103 mmol/L Normal 98-107 [facility] Comment on above: Performed By: #### B MP, HSTROPN, BNP ####[facility] Mowxjddqfg9504 [place] [address]Dr. Garima Pulliam CO2 [Moles/Vol] 29.4 mmol/L Normal 21.0-32.0 [facility] Comment on above: Performed By: #### B MP, HSTROPN, BNP ####[facility] Xhkwlyonyi044[address] [place], [place] [address]Dr. Garima Pulliam Creatinine [Mass/Vol] 0.69 mg/dL Critically low 0.70-1.30 [facility] Comment on above: Performed By: #### B MP, HSTROPN, BNP ####[facility] Klnvixpnlv3799 [place] [address]Dr. Garima Pulliam EGFR-AF OMANI >60 Normal >=60 [facility] Comment on above: Performed By: #### B MP, HSTROPN, BNP ####[facility] Xavitcfuvs[address] [place], [place] [address]Dr. Garima Pulliam EGFR-NON AF OMANI >60 Normal >=60 [facility] Comment on above: Performed By: #### B MP, HSTROPN, BNP ####[facility] Usrjgbwpkw3346 [place] [address]Dr. Chapisrenu Pulliam Glucose [Mass/Vol] 209 mg/dL Critically high 74-106 [facility] Comment on above: Performed By: #### B MP, HSTROPN, BNP ####[facility] Bbxwfilnju8371 [place] [address]Dr. Garima Pulliam Potassium [Moles/Vol] 3.6 mmol/L Normal 3.5-5.1 [facility] Comment on above: Performed By: #### B MP, HSTROPN, BNP ####[facility] Rypwydpumi26[address] [place] [address]Dr. Garima Pulliam Sodium [Moles/Vol] 137 mmol/L Normal 136-145 [facility] Comment on above: Performed By: #### B MP, HSTROPN, BNP ####[facility] Ksxgfvvxmo5141 [place] [address]Dr. Garima Pulliam Urea nitrogen [Mass/Vol] 11.0 mg/dL Normal 7.0-18.0 [facility] Comment on above: Performed By: #### B MP, HSTROPN, BNP ####[facility] Wpcbpzelez2567 [place] [address]Dr. Garima Pulliam Urea nitrogen/Creatinine [Mass ratio] 15.9 mg/mg Normal [facility] Comment on above: Performed By: #### B MP, HSTROPN, BNP ####[facility] Vjgtabiwch9480 [place] [address]Dr. Garima Pulliam TROPONIN, HIGH SENSITIVITYon 11-20-2022 HSTROP 8.7 pg/mL Normal 4.0-76.1 [facility] Comment on above: Result Comment: CUT- OFF POINTS HAVE BEEN ESTABLISHED BASED ON THE FOURTH UNIVERSAL DEFINITIONS OF MYOCARDIALINFARCTION. THE UPPER REFERENCE LIMIT (URL) OF TROPONIN, DEFINED THE 99TH PERCENTILE OFcTnI DISTRIBUTION IN A REFERENCE POPULATION, HAS BEEN CONFIRMED THE DECISION THRESHOLDFOR WI DIAGNOSIS. Performed By: #### B MP, HSTROPN, BNP ####[facility] Ulzfgykdxh1479 [place] [address]Dr. Garima Pulliam XR CHEST 1 Von 11-20-2022 XR CHEST [address] [facility] XR CHEST 1 Von 10-02-2022 XR CHEST [address] [facility] BNPon 09-29-2022 Natriuretic peptide B (Bld) [Mass/Vol] 107.0 pg/mL Normal <=900.[address] [facility] Comment on above: Performed By: #### C MP, BNP, CMADM ####[facility] Vlfcyhfwxm4362 [place] [address]Dr. Garima Pulliam CARDIAC NASH ADMITon 022 CK [Catalytic activity/Vol] 190 U/L Normal 39-[address] [facility] Comment on above: Performed By: #### C MP, BNP, CMADM ####[facility] Utkthfsivz0675 [place] [address]Dr. Garima Pulliam CK.MB [Mass/Vol] 11.11 ng/mL Critically high <=3.60 [facility] Comment on above: Performed By: #### C MP, BNP, CMADM ####[facility] Bgvrqendas4863 [place] [address]Dr. Garima Pulliam HSTROP 11.8 pg/mL Normal 4.0-76.[address] [facility] Comment on above: Result Comment: CUT- OFF POINTS HAVE BEEN ESTABLISHED BASED ON THE FOURTH UNIVERSAL DEFINITIONS OF MYOCARDIALINFARCTION. THE UPPER REFERENCE LIMIT (URL) OF TROPONIN, DEFINED THE 99TH PERCENTILE OFcTnI DISTRIBUTION IN A REFERENCE POPULATION, HAS BEEN CONFIRMED THE DECISION THRESHOLDFOR WI DIAGNOSIS. Performed By: #### C MP, BNP, CMADM ####[facility] Ofmlamsahp2651 [place] [address]Dr. Garima Pulliam DORIS 133 ng/mL Critically high 16-96 [facility] Comment on above: Performed By: #### C MP, BNP, CMADM ####[facility] Qkenurjcod1591 [place] [address]Dr. Garima Pulliam CBC AUTO DIFFon 09-29-2022 BASO # 0.0 103/ul Normal 0.0-0.[address] [facility] Comment on above: Performed By: #### C BC ####[facility] Ncuksdulox0003 [place] [address]Dr. Gairma Pulliam Basophils/100 WBC (Bld) 0.2 % Normal 0.2-2.0 [facility] Comment on above: Performed By: #### C BC ####[facility] Cvmcfrakfl9369 [place] [address]Dr. Garima Pulliam EO # 0.1 103/ul Normal 0.0-0.7 [facility] Comment on above: Performed By: #### C BC ####[facility] Grmlosmhub5947 [place] [address]Dr. Garima Pulliam Eosinophils/100 WBC (Bld) 1.4 % Normal 0.9-7.0 [facility] Comment on above: Performed By: #### C BC ####[facility] Nocxypshzc0722 [place] [address]Dr. Garima Pulliam Erythrocyte distribution width (RBC) [Ratio] 13.7 % Normal 11.0-15.0 [facility] Comment on above: Performed By: #### C BC ####[facility] Wmkubiewyn78[address] [place], [place] [address]Dr. Garima Pulliam Hematocrit (Bld) [Volume fraction] 45.4 % Normal 42.0-54.0 [facility] Comment on above: Performed By: #### C BC ####[facility] Eyrtirzlii44[address] [place], [place] [address]Dr. Garima Pulliam Hemoglobin (Bld) [Mass/Vol] 14.8 g/dL Normal 14.0-18.0 [facility] Comment on above: Performed By: #### C BC ####[facility] Pewnvmpkti[address] [place], [place] [address]Dr. Garima Pulliam IG # 0.04 10e3/ul Critically high 0.00-0.03 [facility] Comment on above: Performed By: #### C BC ####[facility] Ahnfnblbmj2[address] [place], [place] [address]Dr. Garima Heraclio IG % 0.5 % Normal 0.0-0.[address] [facility] Comment on above: Performed By: #### C BC ####[facility] Dqlqybugnu59[address] [place], [place] [address]DrAdalberto Pulliam LYMPH # 1.1 103/ul Critically low 1.2-3.8 [facility] Comment on above: Performed By: #### C BC ####[facility] Tgrdyvldji7328 [place] [address]DrAdalberto Pulliam Lymphocytes/100 WBC (Bld) 12.7 % Critically low 20.5-60.0 [facility] Comment on above: Performed By: #### C BC ####[facility] Pvsxzkiriy4252 [place] [address]DrAdalberto Pulliam MANUAL DIFF REQ NO Normal [facility] Comment on above: Performed By: #### C BC ####[facility] Dklizuabfx7674 [place] [id number] Pulliam MCH (RBC) [Entitic mass] 30.0 pg Normal 25.9-34.[address] [facility] Comment on above: Performed By: #### C BC ####[facility] Jaldjyogwo9[address] [place], [place] [address]Dr. Garima Pulliam MCHC (RBC) [Mass/Vol] 32.6 g/dL Normal 29.9-35.2 [facility] Comment on above: Performed By: #### C BC ####[facility] Mmkmxhalzo7875[address] [place], [place] [address]DrAdalberto Pulliam MCV (RBC) [Entitic vol] 91.9 fL Normal 80.0-94.[address] [facility] Comment on above: Performed By: #### C BC ####[facility] Uyvmtgjoey4651 [place] [address]DrAdalberto Pulliam MONO # 0.4 103/ul Normal 0.3-0.[address] [facility] Comment on above: Performed By: #### C BC ####[facility] Ipiqzjnyzh[address] [place], [place] [address]DrAdalberto Pulliam Monocytes/100 WBC (Bld) 4.8 % Normal 1.7-12.[address] [facility] Comment on above: Performed By: #### C BC ####[facility] Ogmebiyjbz[address] [place], [place] [address]DrAdalberto Pulliam NEUT # 7.1 103/ul Critically high 1.4-6.5 [facility] Comment on above: Performed By: #### C BC ####[facility] Btabwylwan3708 [place] [id number]. Garima Pulliam Neutrophils/100 WBC (Bld) 80.4 % Critically high 43.0-75.0 [facility] Comment on above: Performed By: #### C BC ####[facility] Dlolezcriz8485 [place] [id number]. Garima Pulliam Platelet mean volume (Bld) [Entitic vol] 9.1 fL Critically low 9.5-13.5 [facility] Comment on above: Performed By: #### C BC ####[facility] Xqzofqiptc6462 [place] [id number]. Garima Pulliam PLT 200 103/ul Normal 150-[address] [facility] Comment on above: Performed By: #### C BC ####[facility] Fzvvaofbmp4517 [place] [id number]. Garima Pulliam RBC 4.94 106/ul Normal 4.70-6.[address] [facility] Comment on above: Performed By: #### C BC ####[facility] Pnbgnjehrp0854 [place] [id number]. Garima Pulliam WBC 8.9 103/ul Normal 4.0-11.[address] [facility] Comment on above: Performed By: #### C BC ####[facility] Rqhwhkiknk1191 [place] [id number]. Garima Pulliam Covid-19 PCR [facility])on SARS-CoV-2 (COVID-19) RNA MARIE+probe Ql (Unsp spec) Not detected Normal NOT DETECTED [facility] Comment on above: Result Comment: When [...] for this test is supported by the [employer] of Health and Human Service's declaration that [...] be used). Performed By: #### C VDTBH ####[facility] Lpqqpodqjn1194 [place] [address]Dr. Garima Pulliam LACTATE/LACTIC ACIDon 2021 Lactate [Moles/Vol] 1.7 mmol/L Normal 0.4-1.9 [facility] Comment on above: Performed By: #### L ACT ####[facility] Zjqowdwilr636[address] [place], [place] [address]Dr. Garima Pulliam PROF 14(COMP METB)on 022 Albumin [Mass/Vol] 3.8 g/dL Normal 3.4-5.0 [facility] Comment on above: Performed By: #### C MP, BNP, CMADM ####[facility] Lmetmfcpez3951 [place] [address]Dr. Garima Pulliam Albumin/Globulin [Mass ratio] 1.5 {ratio} Normal [facility] Comment on above: Performed By: #### C MP, BNP, CMADM ####[facility] Quvhdydstq506[address] [place], [place] [address]Dr. Garima Pulliam ALP [Catalytic activity/Vol] 62 U/L Normal 46-[address] [facility] Comment on above: Performed By: #### C MP, BNP, CMADM ####[facility] Ruosqafynw6350 [place] [address]Dr. Garima Pulliam ALT [Catalytic activity/Vol] 37 U/L Normal 16-63 [facility] Comment on above: Performed By: #### C MP, BNP, CMADM ####[facility] Unkvirvzgu1702 [place] [address]Dr. Garima Pulliam Anion gap [Moles/Vol] 8.0 mmol/L Normal [facility] Comment on above: Performed By: #### C MP, BNP, CMADM ####[facility] Kzljbugohu9873 [place] [address]Dr. Garima Pulliam AST [Catalytic activity/Vol] 20 U/L Normal 15-[address] [facility] Comment on above: Performed By: #### C MP, BNP, CMADM ####[facility] Ietbcwyjpe2621 [place] [address]Dr. Garima Pulliam Bilirubin [Mass/Vol] 0.6 mg/dL Normal 0.2-1.[address] [facility] Comment on above: Performed By: #### C MP, BNP, CMADM ####[facility] Fjdgifpwat3077 [place] [address]Dr. Garima Pulliam Calcium [Mass/Vol] 9.1 mg/dL Normal 8.5-10.1 [facility] Comment on above: Performed By: #### C MP, BNP, CMADM ####[facility] Jnjhhnghci1100 [place] [address]Dr. Garima Pulliam Chloride [Moles/Vol] 103 mmol/L Normal 98-[address] [facility] Comment on above: Performed By: #### C MP, BNP, CMADM ####[facility] Udmcuxkjde7494 [place] [address]Dr. Garima Pulliam CO2 [Moles/Vol] 31.8 mmol/L Normal 21.0-32.0 [facility] Comment on above: Performed By: #### C MP, BNP, CMADM ####[facility] Amwacbccle0956 [place] [address]Dr. Garima Pulliam Creatinine [Mass/Vol] 0.63 mg/dL Critically low 0.70-1.[address] [facility] Comment on above: Performed By: #### C MP, BNP, CMADM ####[facility] Qzkqwrlzvo7804 [place] [address]Dr. Garima Pulliam EGFR-AF OMANI >60 Normal >=60 [facility] Comment on above: Performed By: #### C MP, BNP, CMADM ####[facility] Uzhbzjuouz8386 [place] [id number]. Garima Pulliam EGFR-NON AF OMANI >60 Normal >=[address] [facility] Comment on above: Performed By: #### C MP, BNP, CMADM ####[facility] Kisaawazuz3382 [place] [address]Dr. Garima Pulliam Globulin (S) [Mass/Vol] 2.6 g/dL Normal [facility] Comment on above: Performed By: #### C MP, BNP, CMADM ####[facility] Njuufdiidb0960 [place] [address]Dr. Garima Pulliam Glucose [Mass/Vol] 103 mg/dL Normal 74-106 [facility] Comment on above: Performed By: #### C MP, BNP, CMADM ####[facility] Grjvptyrfp5405 [place] [address]Dr. Garima Pulliam Potassium [Moles/Vol] 3.8 mmol/L Normal 3.5-5.[address] [facility] Comment on above: Performed By: #### C MP, BNP, CMADM ####[facility] Ihgobhbgcc8130 [place] [address]Dr. Garima Pulliam Protein [Mass/Vol] 6.4 g/dL Normal 6.4-8.2 [facility] Comment on above: Performed By: #### C MP, BNP, CMADM ####[facility] Jonkyguemo7330 [place] [address]Dr. Garima Pulliam Sodium [Moles/Vol] 139 mmol/L Normal 136-145 [facility] Comment on above: Performed By: #### C MP, BNP, CMADM ####[facility] Ihxsnotdcd8087 [place] [address]Dr. Garima Pulliam Urea nitrogen [Mass/Vol] 7.0 mg/dL Normal 7.0-18.[address] [facility] Comment on above: Performed By: #### C MP, BNP, CMADM ####[facility] Xibawnekvf6889 [place] [address]Dr. Garima Pulliam Urea nitrogen/Creatinine [Mass ratio] 11.1 mg/mg Normal [facility] Comment on above: Performed By: #### C MP, BNP, CMADM ####[facility] Qaiunwirji3881 [place] [address]Dr. Chapisrenu Pulliam PROTIMEon 09-29-2022 INR Coag (PPP) [Relative time] 1.14 {INR} Normal [facility] Comment on above: Performed By: #### P T, PTT ####[facility] Eypyywvoam09[address] [place], [place] [address]Dr. Garima Pulliam INR GUIDELINES SEE BELOW Normal [facility] Comment on above: Result Comment: WESLEY RED INR: 2.0 - 3.0 CONDITIONS NOT LISTED BELOW 2.5 - 3.5 FOR PROSTHETIC HEART VALVE REPLACEMENT 2.5 - 3.5 RECURRENT THROMBOSIS Performed By: #### P T, PTT ####[facility] Uqdoncxsuw498[address] [place], [place] [address]Dr. Garima Pulliam PT Coag (PPP) [Time] 12.2 s Critically high 9.0-11.[address] [facility] Comment on above: Performed By: #### P T, PTT ####[facility] Kvcpuojawg0090[address] [place], [place] [address]Dr. Garima Pullima PTTon 09-29-2022 aPTT Coag (Bld) [Time] 29.3 s Normal 22.3-36.[address] [facility] Comment on above: Performed By: #### P T, PTT ####[facility] Numcdmlmmt101[address] [place], [place] [address]Dr. Garima Pulliam XR CHEST 1 Von 09-29-2022 XR CHEST [address] [facility] CBC AUTO DIFFon 09-26-2022 BASO # 0.0 103/ul Normal 0.0-0.[address] [facility] Comment on above: Performed By: #### C BC ####[facility] Jmronoweub9938[address] [place], [place] [address]Dr. Garima Pulliam Basophils/100 WBC (Bld) 0.2 % Normal 0.2-2.[address] [facility] Comment on above: Performed By: #### C BC ####[facility] Xaktdgjmcq8395 [place] [address]Dr. Garima Pulliam EO # 0.1 103/ul Normal 0.0-0.[address] [facility] Comment on above: Performed By: #### C BC ####[facility] Zqogcawyqf6207[address] [place], [place] [address]Dr. Garima Pulliam Eosinophils/100 WBC (Bld) 1.0 % Normal 0.9-7.[address] [facility] Comment on above: Performed By: #### C BC ####[facility] Cpsjexqlbn2067[address] [place], [place] [address]Dr. Garima Pulliam Erythrocyte distribution width (RBC) [Ratio] 13.4 % Normal 11.0-15.[address] [facility] Comment on above: Performed By: #### C BC ####[facility] Pznhmsmbej668[address] [place], [place] [address]Dr. Garima Pulliam Hematocrit (Bld) [Volume fraction] 46.3 % Normal 42.0-54.[address] [facility] Comment on above: Performed By: #### C BC ####[facility] Esdjnrhutz332[address] [place], [place] [address]Dr. Garima Pulliam Hemoglobin (Bld) [Mass/Vol] 15.3 g/dL Normal 14.0-18.[address] [facility] Comment on above: Performed By: #### C BC ####[facility] Tfiisilsbb7422[address] [place], [place] [address]Dr. Garima Pulliam IG # 0.05 10e3/ul Critically high 0.00-0.03 [facility] Comment on above: Performed By: #### C BC ####[facility] Ceztjwqczt17[address] [place], [place] [address]Dr. Garima Pulliam IG % 0.4 % Normal 0.0-0.[address] [facility] Comment on above: Performed By: #### C BC ####[facility] Elrqljulri5899[address] [place], [place] [address]Dr. Garima Pulliam LYMPH # 1.7 103/ul Normal 1.2-3.[address] [facility] Comment on above: Performed By: #### C BC ####[facility] Vcaegmdpwc0339 [place] [address]Dr. Chapisrenu Pulliam Lymphocytes/100 WBC (Bld) 12.7 % Critically low 20.5-60.[address] [facility] Comment on above: Performed By: #### C BC ####[facility] Oztfrbpjvb1565 [place] [id number]. Chapisrenu Pulliam MANUAL DIFF REQ NO Normal [facility] Comment on above: Performed By: #### C BC ####[facility] Gzpsbosefh3[address] [place] [address]Dr. Garima Pulliam MCH (RBC) [Entitic mass] 30.1 pg Normal 25.9-34.[address] [facility] Comment on above: Performed By: #### C BC ####[facility] Xyysqfxnvw64[address] [place], [place] [address]Dr. Garima Pulliam MCHC (RBC) [Mass/Vol] 33.0 g/dL Normal 29.9-35.[address] [facility] Comment on above: Performed By: #### C BC ####[facility] Jjwlosfghd[address] [place], [place] [address]Dr. Garima Pulliam MCV (RBC) [Entitic vol] 91.1 fL Normal 80.0-94.[address] [facility] Comment on above: Performed By: #### C BC ####[facility] Xfjgrgxcbn[address] [place], [place] [address]Dr. Garima Pulliam MONO # 0.9 103/ul Critically high 0.3-0.8 [facility] Comment on above: Performed By: #### C BC ####[facility] Ywtylenzgl99[address] [place], [place] [address]Dr. Garima Pulliam Monocytes/100 WBC (Bld) 7.0 % Normal 1.7-12.[address] [facility] Comment on above: Performed By: #### C BC ####[facility] Plzkpdjxyj15[address] [place], [place] [address]Dr. Garima Pulliam NEUT # 10.4 103/ul Critically high 1.4-6.5 [facility] Comment on above: Performed By: #### C BC ####[facility] Pvudhjlkih50[address] [place] [address]Dr. Garima Pulliam Neutrophils/100 WBC (Bld) 78.7 % Critically high 43.0-75.0 [facility] Comment on above: Performed By: #### C BC ####[facility] Kwuokwonad0379 [place] [address]Dr. Garima Pulliam Platelet mean volume (Bld) [Entitic vol] 8.9 fL Critically low 9.5-13.[address] [facility] Comment on above: Performed By: #### C BC ####[facility] Dhiqakjsjt9592 [place] [address]Dr. Garima Pulliam PLT 195 103/ul Normal 150-450 [facility] Comment on above: Performed By: #### C BC ####[facility] Qjztjjfzey3386 [place] [address]Dr. Garima Pulliam RBC 5.08 106/ul Normal 4.70-6.[address] [facility] Comment on above: Performed By: #### C BC ####[facility] Gaxedrkiuq[address] [place] [address]Dr. Garima Pulliam WBC 13.2 103/ul Critically high 4.0-11.0 [facility] Comment on above: Performed By: #### C BC ####[facility] Xxyjrucvwk0853 [place] [address]Dr. Garima Pulliam PROF 14(COMP METB)on 022 Albumin [Mass/Vol] 3.5 g/dL Normal 3.4-5.0 [facility] Comment on above: Performed By: #### C DAVID HSTROPN ####[facility] Nzyyjelbaa7699 [place] [id number]. Garima Pulliam Albumin/Globulin [Mass ratio] 1.2 {ratio} Normal [facility] Comment on above: Performed By: #### C DAVID, HSTROPN ####[facility] Txasyfsqrh4312 [place] [id number]. Garima Pulliam ALP [Catalytic activity/Vol] 71 U/L Normal 46-[address] [facility] Comment on above: Performed By: #### C DAVID, HSTROPN ####[facility] Lwaxqbazfk1060 [place] [address]Dr. Garima Pulliam ALT [Catalytic activity/Vol] 37 U/L Normal 16-63 [facility] Comment on above: Performed By: #### C MP, HSTROPN ####[facility] Rtbjgxdwbn3222 [place] [address]Dr. Garima Pulliam Anion gap [Moles/Vol] 4.8 mmol/L Normal [facility] Comment on above: Performed By: #### C MP, HSTROPN ####[facility] Prrquecxyw7378 [place] [address]Dr. Garima Pulliam AST [Catalytic activity/Vol] 21 U/L Normal 15-37 [facility] Comment on above: Performed By: #### C DAVID, HSTROPN ####[facility] Iauywfyynw14[address] [place], [place] [address]Dr. Garima Pulliam Bilirubin [Mass/Vol] 0.3 mg/dL Normal 0.2-1.0 [facility] Comment on above: Performed By: #### C DAVID, HSTROPN ####[facility] Sdisikxugw1094[address] [place], [place] [address]Dr. Garima Pulliam Calcium [Mass/Vol] 8.9 mg/dL Normal 8.5-10.1 [facility] Comment on above: Performed By: #### C DAVID, HSTROPN ####[facility] Znyzfbegcd57[address] [place], [place] [address]Dr. Garima Pulliam Chloride [Moles/Vol] 106 mmol/L Normal 98-107 [facility] Comment on above: Performed By: #### C MP, HSTROPN ####[facility] Zyutxmfzak035[address] [place], [place] [address]Dr. Garima Pulliam CO2 [Moles/Vol] 29.8 mmol/L Normal 21.0-32.0 [facility] Comment on above: Performed By: #### C MP, HSTROPN ####[facility] Pkhuiusegr494[address] [place], [place] [address]Dr. Yilan Pulliam Creatinine [Mass/Vol] 0.68 mg/dL Critically low 0.70-1.30 [facility] Comment on above: Performed By: #### C DAVID, HSTROPN ####[facility] Brxgvyfvne7[address] [place] [address]Dr. Garima Pulliam EGFR-AF OMANI >60 Normal >=60 [facility] Comment on above: Performed By: #### C DAVID, HSTROPN ####[facility] Gsnayafkwp1010 [place] [address]Dr. Garima Pulliam EGFR-NON AF OMANI >60 Normal >=60 [facility] Comment on above: Performed By: #### C DAVID, HSTROPN ####[facility] Engnspjerc0462 [place] [address]Dr. Garima Pulliam Globulin (S) [Mass/Vol] 2.8 g/dL Normal [facility] Comment on above: Performed By: #### C DAVID, HSTROPN ####[facility] Romlqznxep6216 [place] [address]Dr. Garima Pulliam Glucose [Mass/Vol] 133 mg/dL Critically high 74-106 [facility] Comment on above: Performed By: #### C DAVID, HSTROPN ####[facility] Gpqqmbroxp7142 [place] [address]Dr. Garima Pulliam Potassium [Moles/Vol] 3.6 mmol/L Normal 3.5-5.1 [facility] Comment on above: Performed By: #### C DAVID, HSTROPN ####[facility] Diyqsmvifg6229 [place] [address]Dr. Garima Pulliam Protein [Mass/Vol] 6.3 g/dL Critically low 6.4-8.2 Th [facility] Comment on above: Performed By: #### C DAVID, HSTROPN ####[facility] Zlncrxohnq8539 [place] [address]Dr. Garima Pulliam Sodium [Moles/Vol] 137 mmol/L Normal 136-145 [facility] Comment on above: Performed By: #### C DAVID, HSTROPN ####[facility] Usbrmpammk6986 [place] [id number]. Garima Pulliam Urea nitrogen [Mass/Vol] 15.0 mg/dL Normal 7.0-18.[address] [facility] Comment on above: Performed By: #### C MP, HSTROPN ####[facility] Kkbeqircsv2897 [place] [id number]. Garima Pulliam Urea nitrogen/Creatinine [Mass ratio] 22.1 mg/mg Normal [facility] Comment on above: Performed By: #### C MP, HSTROPN ####[facility] Xkrafvmesv6391 [place] [id number]. Garima Pulliam TROPONIN, HIGH SENSITIVITYon 09-26-2022 HSTROP 12.8 pg/mL Normal 4.0-76.[address] [facility] Comment on above: Result Comment: CUT- OFF POINTS HAVE BEEN ESTABLISHED BASED ON THE FOURTH UNIVERSAL DEFINITIONS OF MYOCARDIALINFARCTION. THE UPPER REFERENCE LIMIT (URL) OF TROPONIN, DEFINED THE 99TH PERCENTILE OFcTnI DISTRIBUTION IN A REFERENCE POPULATION, HAS BEEN CONFIRMED THE DECISION THRESHOLDFOR [place] DIAGNOSIS. Performed By: #### C MP, HSTROPN ####[facility] Afktluupfe4210 [place] [address]Dr. Garima Pulliam XR CHEST 1 Von 09-26-2022 XR CHEST [address] [facility] XR CHEST 1 Von 09-16-2022 XR CHEST [address] [facility] CBC AUTO DIFFon 09-15-2022 BASO # 0.0 103/ul Normal 0.0-0.[address] [facility] Comment on above: Performed By: #### C BC ####[facility] Dpgcsjbind6183 [place] [id number]. Garima Heraclio Basophils/100 WBC (Bld) 0.1 % Critically low 0.2-2.[address] [facility] Comment on above: Performed By: #### C BC ####[facility] Qwmbsrbsba3133 [place] [id number]. Garima Heraclio EO # 0.0 103/ul Normal 0.0-0.[address] [facility] Comment on above: Performed By: #### C BC ####[facility] Gqzgtjvvcu3568 [place] [id number]. Garima Pulliam Eosinophils/100 WBC (Bld) 0.1 % Critically low 0.9-7.0 [facility] Comment on above: Performed By: #### C BC ####[facility] Avkpacljkw6409 [place] [address]Dr. Garima Pulliam Erythrocyte distribution width (RBC) [Ratio] 14.1 % Normal 11.0-15.0 [facility] Comment on above: Performed By: #### C BC ####[facility] Jcrskitgnm96[address] [place], [place] [address]Dr. Garima Pulliam Hematocrit (Bld) [Volume fraction] 46.1 % Normal 42.0-54.0 [facility] Comment on above: Performed By: #### C BC ####[facility] Lknoucfdst0177[address] [place], [place] [address]Dr. Garima Pulliam Hemoglobin (Bld) [Mass/Vol] 15.0 g/dL Normal 14.0-18.0 [facility] Comment on above: Performed By: #### C BC ####[facility] Dusfxmqufk1504[address] [place], [place] [address]Dr. Garima Pulliam IG # 0.03 10e3/ul Normal 0.00-0.03 [facility] Comment on above: Performed By: #### C BC ####[facility] Xygvlxltph0623[address] [place], [place] [address]Dr. Garima Pulliam IG % 0.3 % Normal 0.0-0.[address] [facility] Comment on above: Performed By: #### C BC ####[facility] Lvhtqarfik5105[address] [place], [place] [address]Dr. Garima Pulliam LYMPH # 0.6 103/ul Critically low 1.2-3.8 [facility] Comment on above: Performed By: #### C BC ####[facility] Aoxjebworv5807[address] [place], [place] [address]Dr. Garima Pulliam Lymphocytes/100 WBC (Bld) 5.8 % Critically low 20.5-60.0 [facility] Comment on above: Performed By: #### C BC ####[facility] Ncknkfzfaf0714 [place] [id number]. Garima Pulliam MANUAL DIFF REQ NO Normal [facility] Comment on above: Performed By: #### C BC ####[facility] Gintajzboo3250 [place] [id number]. Garima Pulliam MCH (RBC) [Entitic mass] 30.2 pg Normal 25.9-34.0 [facility] Comment on above: Performed By: #### C BC ####[facility] Qrstmupcoa3119 [place] [id number]. Garima Pulliam MCHC (RBC) [Mass/Vol] 32.5 g/dL Normal 29.9-35.2 [facility] Comment on above: Performed By: #### C BC ####[facility] Mgodaefrdg532[address] [place], [place] [address]Dr. Garima Pulliam MCV (RBC) [Entitic vol] 92.8 fL Normal 80.0-94.0 [facility] Comment on above: Performed By: #### C BC ####[facility] C[address]qrlwzmj[address] [place], [place] [id number]. Garima Pulliam MONO # 0.3 103/ul Normal 0.3-0.8 [facility] Comment on above: Performed By: #### C BC ####[facility] Gmenexgoij1089[address] [place], [place] [address]Dr. Garima Pulliam Monocytes/100 WBC (Bld) 3.2 % Normal 1.7-12.[address] [facility] Comment on above: Performed By: #### C BC ####[facility] Giwmkscpod4190[address] [place], [place] [address]Dr. Garima Pulliam NEUT # 9.8 103/ul Critically high 1.4-6.5 [facility] Comment on above: Performed By: #### C BC ####[facility] Kbrftmtuyn[address] [place], [place] [id number]. Garima Pulliam Neutrophils/100 WBC (Bld) 90.5 % Critically high 43.0-75.0 [facility] Comment on above: Performed By: #### C BC ####[facility] Sqmqtwqzbd4677 [place] [address]Dr. Garima Pulliam Platelet mean volume (Bld) [Entitic vol] 9.4 fL Critically low 9.5-13.5 [facility] Comment on above: Performed By: #### C BC ####[facility] Edgzkythmo6037 [place] [address]Dr. Garima Pulliam PLT 208 103/ul Normal 150-450 [facility] Comment on above: Performed By: #### C BC ####[facility] Tmeqtzcihv759[address] [place], [place] [address]Dr. Garima Pulliam RBC 4.97 106/ul Normal 4.70-6.10 [facility] Comment on above: Performed By: #### C BC ####[facility] Pnlcoszxyj337188 [address] [place], [place] [address]Dr. Garima Pulliam WBC 10.8 103/ul Normal 4.0-11.0 [facility] Comment on above: Performed By: #### C BC ####[facility] Egtbepeqxf637[address] [place], [place] [address]Dr. Garima Pulliam PROF 14(COMP METB)on 022 Albumin [Mass/Vol] 4.0 g/dL Normal 3.4-5.0 [facility] Comment on above: Performed By: #### C MP ####[facility] Cxpvlsckph7369[address] [place], [place] [address]Dr. Garima Pulliam Albumin/Globulin [Mass ratio] 1.5 {ratio} Normal [facility] Comment on above: Performed By: #### C MP ####[facility] Oibegxqiax0569[address] [place], [place] [address]Dr. Garima Pulliam ALP [Catalytic activity/Vol] 73 U/L Normal 46-116 [facility] Comment on above: Performed By: #### C MP ####[facility] Mygaauslfa4606[address] [place], [place] [address]Dr. Garima Pulliam ALT [Catalytic activity/Vol] 42 U/L Normal 16-63 [facility] Comment on above: Performed By: #### C MP ####[facility] Zdbngwxuqf1544 [place] [address]Dr. Garima Pulliam Anion gap [Moles/Vol] 9.1 mmol/L Normal [facility] Comment on above: Performed By: #### C MP ####[facility] Tbrzifpmkq5040 [place] [address]Dr. Garima Pulliam AST [Catalytic activity/Vol] 28 U/L Normal 15-[address] [facility] Comment on above: Performed By: #### C MP ####[facility] Lenojfjvam4921 [place] [address]Dr. Garima Pulliam Bilirubin [Mass/Vol] 0.6 mg/dL Normal 0.2-1.0 [facility] Comment on above: Performed By: #### C MP ####[facility] Bcxrlooyhe3734[address] [place], [place] [address]Dr. Garima Pulliam Calcium [Mass/Vol] 8.6 mg/dL Normal 8.5-10.1 [facility] Comment on above: Performed By: #### C MP ####[facility] Viyvekveih240[address] [place], [place] [address]Dr. Garima Pulliam Chloride [Moles/Vol] 105 mmol/L Normal 98-107 [facility] Comment on above: Performed By: #### C MP ####[facility] Fqeuzxfspv4615[address] [place], [place] [address]Dr. Garima Pulliam CO2 [Moles/Vol] 28.5 mmol/L Normal 21.0-32.0 [facility] Comment on above: Performed By: #### C MP ####[facility] Thjdspqesm6757[address] [place], [place] [address]Dr. Garima Pulliam Creatinine [Mass/Vol] 0.78 mg/dL Normal 0.70-1.[address] [facility] Comment on above: Performed By: #### C MP ####[facility] Wtakyjxbrx6411 [place] [address]Dr. Garima Pulliam EGFR-AF OMANI >60 Normal >=60 [facility] Comment on above: Performed By: #### C MP ####[facility] Sgwyjjhekp2238 [place] [address]Dr. Garima Pulliam EGFR-NON AF OMANI >60 Normal >=[address] [facility] Comment on above: Performed By: #### C MP ####[facility] Uqlxufvkaa4675 [place] [address]Dr. Garima Pulliam Globulin (S) [Mass/Vol] 2.7 g/dL Normal [facility] Comment on above: Performed By: #### C MP ####[facility] Iydymdlubh4670 [place] [address]Dr. Garima Pulliam Glucose [Mass/Vol] 220 mg/dL Critically high 74-106 [facility] Comment on above: Performed By: #### C MP ####[facility] Priegymfju4086[address] [place], [place] [address]Dr. Garima Pulliam Potassium [Moles/Vol] 3.6 mmol/L Normal 3.5-5.[address] [facility] Comment on above: Performed By: #### C MP ####[facility] Eidzngxabn056[address] [place], [place] [address]Dr. Garima Pulliam Protein [Mass/Vol] 6.7 g/dL Normal 6.4-8.2 [facility] Comment on above: Performed By: #### C MP ####[facility] Rbzjwvyfti418[address] [place], [place] [address]Dr. Garima Pulliam Sodium [Moles/Vol] 139 mmol/L Normal 136-145 [facility] Comment on above: Performed By: #### C MP ####[facility] Dupicsrnmu7217[address] [place], [place] [address]Dr. Garima Pulliam Urea nitrogen [Mass/Vol] 11.0 mg/dL Normal 7.0-18.[address] [facility] Comment on above: Performed By: #### C MP ####[facility] Uxtptjafyq8511[address] [place], [place] [address]Dr. Garima Pulliam Urea nitrogen/Creatinine [Mass ratio] 14.1 mg/mg Normal [facility] Comment on above: Performed By: #### C MP ####[facility] Nmlfizbppl[address] [place], [place] [address]Dr. Garima Pulliam CARDIAC NASH 3-6on 2 CK [Catalytic activity/Vol] 240 U/L Normal 39-308 [facility] Comment on above: Performed By: #### C MREP ####[facility] Clbtwkvnzi6182 [place], [place] [address]Cr. Garima Pulliam CK.MB [Mass/Vol] 10.38 ng/mL Critically high <=3.60 [facility] Comment on above: Performed By: #### C MREP ####[facility] Pfkvykihnv1827 [place] [id number]. Garima Pulliam HSTROP 18.5 pg/mL Normal 4.0-76.1 [facility] Comment on above: Result Comment: CUT- OFF POINTS HAVE BEEN ESTABLISHED BASED ON THE FOURTH UNIVERSAL DEFINITIONS OF MYOCARDIALINFARCTION. THE UPPER REFERENCE LIMIT (URL) OF TROPONIN, DEFINED THE 99TH PERCENTILE OFcTnI DISTRIBUTION IN A REFERENCE POPULATION, HAS BEEN CONFIRMED THE DECISION THRESHOLDFOR [place] DIAGNOSIS. Performed By: #### C MREP ####[facility] Eluafbswnp4647 [place] [id number]. Garima Pulliam CK [Catalytic activity/Vol] 257 U/L Normal 39-308 [facility] Comment on above: Performed By: #### C MREP ####[facility] Saatcirtec3874 [place] [id number]. Garima Pulliam CK.MB [Mass/Vol] 9.89 ng/mL Critically high <=3.60 [facility] Comment on above: Performed By: #### C MREP ####[facility] Wokkebntlc5643 [place] [id number]. Garima Pulliam HSTROP 16.9 pg/mL Normal 4.0-76.1 [facility] Comment on above: Result Comment: CUT- OFF POINTS HAVE BEEN ESTABLISHED BASED ON THE FOURTH UNIVERSAL DEFINITIONS OF MYOCARDIALINFARCTION. THE UPPER REFERENCE LIMIT (URL) OF TROPONIN, DEFINED THE 99TH PERCENTILE OFcTnI DISTRIBUTION IN A REFERENCE POPULATION, HAS BEEN CONFIRMED THE DECISION THRESHOLDFOR [place] DIAGNOSIS. Performed By: #### C MREP ####[facility] Lftonusdda4927 [place] [address]Dr. Garima Pulliam CBC AUTO DIFFon 09-13-2022 BASO # 0.0 103/ul Normal 0.0-0.[address] [facility] Comment on above: Performed By: #### C BC ####[facility] Ibgjydngsa4[address] [place], [place] [address]Dr. Chapisrenu Pulliam Basophils/100 WBC (Bld) 0.1 % Critically low 0.2-2.[address] [facility] Comment on above: Performed By: #### C BC ####[facility] Kiajztdhcy44[address] [place], [place] [address]Dr. Chapisrenu Pulliam EO # 0.0 103/ul Normal 0.0-0.[address] [facility] Comment on above: Performed By: #### C BC ####[facility] Pykyxjraix1786[address] [place], [place] [address]Dr. Chapisrenu Pulliam Eosinophils/100 WBC (Bld) 0.0 % Critically low 0.9-7.[address] [facility] Comment on above: Performed By: #### C BC ####[facility] Mzjstnefxu232[address] [place], [place] [address]Dr. Chapisrenu Pulliam Erythrocyte distribution width (RBC) [Ratio] 13.6 % Normal 11.0-15.0 [facility] Comment on above: Performed By: #### C BC ####[facility] Wxkvscypvh696[address] [place], [place] [address]Dr. Garima Pulliam Hematocrit (Bld) [Volume fraction] 48.2 % Normal 42.0-54.[address] [facility] Comment on above: Performed By: #### C BC ####[facility] Dqcnqgawxx05[address] [place], [place] [address]Dr. Chapisrenu Pulliam Hemoglobin (Bld) [Mass/Vol] 16.0 g/dL Normal 14.0-18.[address] [facility] Comment on above: Performed By: #### C BC ####[facility] Lidfpvwhqj394[address] [place], [place] [address]Dr. Garima Pulliam IG # 0.02 10e3/ul Normal 0.00-0.[address] [facility] Comment on above: Performed By: #### C BC ####[facility] Tmhhcyigrr4880 [place] [id number]. Garima Pulliam IG % 0.3 % Normal 0.0-0.5 [facility] Comment on above: Performed By: #### C BC ####[facility] Dlhmporsxt7440 [place] [id number]. Garima Heraclio LYMPH # 0.5 103/ul Critically low 1.2-3.8 [facility] Comment on above: Performed By: #### C BC ####[facility] Vqvlnkqlqu5277 [place] [id number]. Chapisrenu Pulliam Lymphocytes/100 WBC (Bld) 7.7 % Critically low 20.5-60.0 [facility] Comment on above: Performed By: #### C BC ####[facility] Fphwyerzui2565 [place] [address]Dr. Garima Pulliam MANUAL DIFF REQ NO Normal [facility] Comment on above: Performed By: #### C BC ####[facility] Robfyrwrkb3743 [place] [id number]. Garima Pulliam MCH (RBC) [Entitic mass] 30.6 pg Normal 25.9-34.0 [facility] Comment on above: Performed By: #### C BC ####[facility] Gkiorfoxsk8784 [place] [id number]. Garima Heraclio MCHC (RBC) [Mass/Vol] 33.2 g/dL Normal 29.9-35.[address] [facility] Comment on above: Performed By: #### C BC ####[facility] Pihkvwpgnm8261 [place] [id number]. Garima Pulliam MCV (RBC) [Entitic vol] 92.2 fL Normal 80.0-94.[address] [facility] Comment on above: Performed By: #### C BC ####[facility] Ienlfqsazg[address] [place], [place] [address]Dr. Garima Pulliam MONO # 0.0 103/ul Critically low 0.3-0.8 [facility] Comment on above: Performed By: #### C BC ####[facility] Whuocbqysd2807 [place] [id number]. Garima Pulliam Monocytes/100 WBC (Bld) 0.4 % Critically low 1.7-12.0 [facility] Comment on above: Performed By: #### C BC ####[facility] Cnbanhpbaq2181 [place] [id number]. Garima Pulliam NEUT # 6.2 103/ul Normal 1.4-6.5 [facility] Comment on above: Performed By: #### C BC ####[facility] Ibdftaeqxy0916 [place] [address]Dr. Garima Pulliam Neutrophils/100 WBC (Bld) 91.5 % Critically high 43.0-75.0 [facility] Comment on above: Performed By: #### C BC ####[facility] Prvhwqzqmo2806 [place] [address]Dr. Garima Pulliam Platelet mean volume (Bld) [Entitic vol] 8.7 fL Critically low 9.5-13.5 [facility] Comment on above: Performed By: #### C BC ####[facility] Rylavwlfrx312[address] [place], [place] [address]Dr. Garima Pulliam PLT 179 103/ul Normal 150-450 [facility] Comment on above: Performed By: #### C BC ####[facility] Tupcymfwxx7915 [place] [id number]. Garima Pulliam RBC 5.23 106/ul Normal 4.70-6.[address] [facility] Comment on above: Performed By: #### C BC ####[facility] Zsxjhqnxig2220 [place] [id number]. Garima Pulliam WBC 6.7 103/ul Normal 4.0-11.[address] [facility] Comment on above: Performed By: #### C BC ####[facility] [address]ytopvzx14[address] [place], [place] [address]DrAdalberto Garima Heraclio PROF CHEM 8 (BAS METB)on Anion gap [Moles/Vol] 12.1 mmol/L Normal Th [facility] Comment on above: Performed By: #### B MP ####[facility] Utqgxngpkx3562 [place] [address]Dr. Garima Pulliam Calcium [Mass/Vol] 8.7 mg/dL Normal 8.5-10.1 [facility] Comment on above: Performed By: #### B MP ####[facility] Bsznfgihvn[address] [place] [id number]. Garima Pulliam Chloride [Moles/Vol] 105 mmol/L Normal 98-107 [facility] Comment on above: Performed By: #### B MP ####[facility] Uhinowvcyr[address] [place] [address]Dr. Garima Pulliam CO2 [Moles/Vol] 25.5 mmol/L Normal 21.0-32.0 [facility] Comment on above: Performed By: #### B MP ####[facility] [address]bio[address] [place], [place] [address]Dr. Garima Pulliam Creatinine [Mass/Vol] 0.63 mg/dL Critically low 0.70-1.30 [facility] Comment on above: Performed By: #### B MP ####[facility] Ujuupzjwju[address] [place] [address]Dr. Garima Pulliam EGFR-AF OMANI >60 Normal >=60 [facility] Comment on above: Performed By: #### B MP ####[facility] Mtwhwkwyjy[address] [place] [address]Dr. Garima Pulliam EGFR-NON AF OMANI >60 Normal >=60 [facility] Comment on above: Performed By: #### B MP ####[facility] Sazuidjddi[address] [place] [address]Dr. Garima Pulliam Glucose [Mass/Vol] 162 mg/dL Critically high 74-106 [facility] Comment on above: Performed By: #### B MP ####[facility] Dqgcexrmgn4484 [place] [address]Dr. Garima Pulliam Potassium [Moles/Vol] 3.6 mmol/L Normal 3.5-5.1 [facility] Comment on above: Performed By: #### B MP ####[facility] Bzrmgmeblc5[address] [place] [id number]. Garima Pulliam Sodium [Moles/Vol] 139 mmol/L Normal 136-145 [facility] Comment on above: Performed By: #### B MP ####[facility] Bwstthukdu4491 [place] [id number]. Garima Heraclio Urea nitrogen [Mass/Vol] 9.0 mg/dL Normal 7.0-18.0 [facility] Comment on above: Performed By: #### B MP ####[facility] Ixjznnawsh40[address] [place] [id number]. Garima Pulliam Urea nitrogen/Creatinine [Mass ratio] 14.3 mg/mg Normal [facility] Comment on above: Performed By: #### B DAVID ####[facility] Nmqsrcphnu4716 [place] [address]Dr. Garima Pulliam CARDIAC NASH ADMITon 022 CK [Catalytic activity/Vol] 304 U/L Normal 39-308 [facility] Comment on above: Performed By: #### B DAVID, NANCY ####[facility] Mrgavbisft3651 [place] [id number]. Garima Pulliam CK.MB [Mass/Vol] 11.81 ng/mL Critically high <=3.60 [facility] Comment on above: Performed By: #### B DAVID, NANCY ####[facility] [address]uzpxgmtza[address] [place] [address]Dr. Chapisrenu Pulliam HSTROP 13.3 pg/mL Normal 4.0-76.1 [facility] Comment on above: Result Comment: CUT- OFF POINTS HAVE BEEN ESTABLISHED BASED ON THE FOURTH UNIVERSAL DEFINITIONS OF MYOCARDIALINFARCTION. THE UPPER REFERENCE LIMIT (URL) OF TROPONIN, DEFINED THE 99TH PERCENTILE OFcTnI DISTRIBUTION IN A REFERENCE POPULATION, HAS BEEN CONFIRMED THE DECISION THRESHOLDFOR WI DIAGNOSIS. Performed By: #### B DAVID, CMADM ####[facility] Mtnxuhkjsm[address] [place] [address]Dr. Garima Pulliam DORIS 133 ng/mL Critically high 16-96 [facility] Comment on above: Performed By: #### B ERVIN HERNANDEZDM ####[facility] Wnsrirdojk[address] [place] [id number]. Garima Heraclio CBC AUTO DIFFon 09-12-2022 BASO # 0.0 103/ul Normal 0.0-0.1 [facility] Comment on above: Performed By: #### C BC ####[facility] Dtyxfukhrk2976 [place] [id number]. Chapisrenu Pulliam Basophils/100 WBC (Bld) 0.2 % Normal 0.2-2.0 [facility] Comment on above: Performed By: #### C BC ####[facility] Tribexkiua[address] [place], [place] [address]Dr. Chapisrenu Pulliam EO # 0.2 103/ul Normal 0.0-0.7 [facility] Comment on above: Performed By: #### C BC ####[facility] Quitmbdgpu[address] [place], [place] [address]Dr. Chapisrenu Pulliam Eosinophils/100 WBC (Bld) 1.3 % Normal 0.9-7.0 [facility] Comment on above: Performed By: #### C BC ####[facility] [address]tyalngkz[address] [place], [place] [address]Dr. Garima Heraclio Erythrocyte distribution width (RBC) [Ratio] 13.7 % Normal 11.0-15.0 [facility] Comment on above: Performed By: #### C BC ####[facility] [address]pmfhcqox[address] [place], [place] [address]Dr. Garima Heraclio Hematocrit (Bld) [Volume fraction] 46.4 % Normal 42.0-54.0 [facility] Comment on above: Performed By: #### C BC ####[facility] [address]ifitgo[address] [place], [place] [address]Dr. Chapisrenu Pulliam Hemoglobin (Bld) [Mass/Vol] 15.7 g/dL Normal 14.0-18.[address] [facility] Comment on above: Performed By: #### C BC ####[facility] [address]xbaapensu[address] [place], [place] [address]Dr. Garima Pulliam IG # 0.04 10e3/ul Critically high 0.00-0.03 [facility] Comment on above: Performed By: #### C BC ####[facility] Dvcsfduwgb[address] [place] [id number] Chapisrenu Pulliam IG % 0.3 % Normal 0.0-0.5 [facility] Comment on above: Performed By: #### C BC ####[facility] Jznbwxdhyt75[address] [place] [id number] Pulliam LYMPH # 1.7 103/ul Normal 1.2-3.8 [facility] Comment on above: Performed By: #### C BC ####[facility] Vdddyjnpmj6641 [place] [id number] Pulliam Lymphocytes/100 WBC (Bld) 11.5 % Critically low 20.5-60.0 [facility] Comment on above: Performed By: #### C BC ####[facility] Ocidqsrqho[address] [place] [address]DrAdalberto Pulliam MANUAL DIFF REQ NO Normal [facility] Comment on above: Performed By: #### C BC ####[facility] Sxffmzvocx2371 [place] [id number] Garima Heraclio MCH (RBC) [Entitic mass] 31.0 pg Normal 25.9-34.0 [facility] Comment on above: Performed By: #### C BC ####[facility] Gbjnttjphn8[address] [place] [id number] Chapisrenu Pulliam MCHC (RBC) [Mass/Vol] 33.8 g/dL Normal 29.9-35.2 [facility] Comment on above: Performed By: #### C BC ####[facility] Mhuofevizo10[address] [place] [id number] Chapisrenu Pulliam MCV (RBC) [Entitic vol] 91.7 fL Normal 80.0-94.0 [facility] Comment on above: Performed By: #### C BC ####[facility] Vyvsqrhset5[address] [place] [id number] Pulliam MONO # 0.8 103/ul Normal 0.3-0.[address] [facility] Comment on above: Performed By: #### C BC ####[facility] Agbleqgcwk4807 [place] [id number]. Garima Pulliam Monocytes/100 WBC (Bld) 5.2 % Normal 1.7-12.[address] [facility] Comment on above: Performed By: #### C BC ####[facility] Vmzcgohxgt6578 [place] [id number]. Garima Pulliam NEUT # 11.7 103/ul Critically high 1.4-6.5 [facility] Comment on above: Performed By: #### C BC ####[facility] Pnsfnymkxl62[address] [place] [address]Dr. Garima Pulliam Neutrophils/100 WBC (Bld) 81.5 % Critically high 43.0-75.0 [facility] Comment on above: Performed By: #### C BC ####[facility] Tcpamlkhwr8937 [place] [address]Dr. Garima Pulliam Platelet mean volume (Bld) [Entitic vol] 8.6 fL Critically low 9.5-13.[address] [facility] Comment on above: Performed By: #### C BC ####[facility] Exmmaholtj[address] [place], [place] [address]Dr. Garima Pulliam PLT 191 103/ul Normal 150-[address] [facility] Comment on above: Performed By: #### C BC ####[facility] Dgvwyzkayr0318 [place] [id number]. Garima Pulliam RBC 5.06 106/ul Normal 4.70-6.[address] [facility] Comment on above: Performed By: #### C BC ####[facility] Bvjuxfepkb9562 [place] [id number]. Garima Pulliam WBC 14.4 103/ul Critically high 4.0-11.0 [facility] Comment on above: Performed By: #### C BC ####[facility] Oftokzffll[address] [place] [id number]. Garima Pulliam [facility]on [facility]24 SARS-CoV-2 (COVID-19) RNA MARIE+probe Ql (Unsp spec) Not detected Normal NOT DETECTED [facility] Comment on above: Result Comment: When [...] for this test is supported by the Environmental Adviser of Health and Human Service's declaration that [...] be used). Performed By: #### C VDTBH ####[facility] [address]vvtpexeqy[address] [place] [address]Dr. Garima Pulliam LACTATE/LACTIC ACIDon 2021 Lactate [Moles/Vol] 1.0 mmol/L Normal 0.4-1.9 [facility] Comment on above: Performed By: #### L ACT ####[facility] Wqyiigruwr[address] [place] [address]Dr. Garima Pulliam PROF CHEM 8 (BAS METB)on Anion gap [Moles/Vol] 11.6 mmol/L Normal [facility] Comment on above: Performed By: #### B MP, CMADM ####[facility] Zfscfrkiuf38[address] [place] [address]Dr. Garima Pulliam Calcium [Mass/Vol] 9.2 mg/dL Normal 8.5-10.1 [facility] Comment on above: Performed By: #### B MP, CMADM ####[facility] Jqciqjwnjb4887 [place] [address]Dr. Garima Pulliam Chloride [Moles/Vol] 105 mmol/L Normal 98-107 [facility] Comment on above: Performed By: #### B DAVID, CMADM ####[facility] Bxsrigexhj1825 [place] [address]Dr. Garima Pulliam CO2 [Moles/Vol] 25.9 mmol/L Normal 21.0-32.0 [facility] Comment on above: Performed By: #### B DAVID, CMADM ####[facility] Tdxuhztmfw[address] [place] [address]Dr. Garima Pulliam Creatinine [Mass/Vol] 0.72 mg/dL Normal 0.70-1.30 [facility] Comment on above: Performed By: #### B DAVID, CMADM ####[facility] Hcyzszworo16[address] [place] [address]Dr. Garima Pulliam EGFR-AF OMANI >60 Normal >=60 [facility] Comment on above: Performed By: #### B DAVID, CMADM ####[facility] Rcvjqwbjpd2976 [place] [address]Dr. Garima Pulliam EGFR-NON AF OMANI >60 Normal >=60 [facility] Comment on above: Performed By: #### B DAVID, CMADM ####[facility] Syicovlodz[address] [place] [address]Dr. Garima Pulliam Glucose [Mass/Vol] 111 mg/dL Critically high 74-106 [facility] Comment on above: Performed By: #### B DAVID, CMADM ####[facility] Wcqsgtnkum1514 [place] [address]Dr. Garima Pulliam Potassium [Moles/Vol] 3.5 mmol/L Normal 3.5-5.1 [facility] Comment on above: Performed By: #### B DAVID, CMADM ####[facility] Eswnexdqxg36[address] [place] [address]Dr. Garima Pulliam Sodium [Moles/Vol] 139 mmol/L Normal 136-145 [facility] Comment on above: Performed By: #### B DAVID, CMADM ####[facility] Mudhkpijkj8898 [place] [address]Dr. Garima Pulliam Urea nitrogen [Mass/Vol] 7.0 mg/dL Normal 7.0-18.0 [facility] Comment on above: Performed By: #### B NANCY HERNANDEZ ####[facility] [address]giqiwc[address] [place], [place] [address]Fc. Garima Heraclio Urea nitrogen/Creatinine [Mass ratio] 9.7 mg/mg Normal [facility] Comment on above: Performed By: #### B DAVID, NANCY ####[facility] [address]rw[address] [place], [place] [address]Gm. Garima Pulliam XR CHEST 1 Von 09-12-2022 XR CHEST [address] [facility] Encounters Encounter Date Encounter Type Care [...] Facility:H1 Payers Date Payer Category Payer Unknown [id number] 1960 Medicaid [id number] 1960 Unknown [id number] 1959 Unknown [id number] 1954 Unknown [id number] 2.16.84 0.1.561729.3.579.2.593 1954 Unknown [id number] 2.16.84 0.1.202407.3.579.2.593 1954 Unknown [id number] 2.16.84 0.1.625882.3.579.2.593 1954 Unknown [id number] 2.16.84 0.1.645302.3.579.2.593 1954 Unknown [id number] 2.16.84 0.1.640669.3.579.2.593 1954 Unknown [id number] 2.16.84 0.1.897313.3.579.2.593 1954 Unknown [id number] 2.16.84 0.1.765443.3.579.2.593 1954 Unknown [id number] 2.16.84 0.1.012727.3.579.2.593 1954 Unknown [id number] 2.16.84 0.1.033811.3.579.2.593 1954 Unknown [id number] 2.16.84 0.1.220921.3.579.2.593 1954 Unknown [id number] 2.16.84 0.1.317800.3.579.2.593 1954 Unknown [id number] 2.16.84 0.1.374850.3.579.2.593 1954 Unknown [id number] 2.16.84 0.1.801048.3.579.2.593 1954 Unknown [id number] 2.16.84 0.1.400505.3.579.2.593 1954 Unknown [id number] 2.16.84 0.1.844171.3.579.2.593 1954 Unknown [id number] 2.16.84 0.1.629519.3.579.2.593 1954 Unknown [id number] 2.16.84 0.1.507594.3.579.2.593 1954 Unknown [id number] 2.16.84 0.1.391058.3.579.2.593 1954 Unknown [id number] 2.16.84 0.1.817491.3.579.2.593 1954 Unknown [id number] 2.16.84 0.1.861834.3.579.2.593 Summary Purpose Family History No Family History Records Found Advance Directives No Advanced Directives Records Found Additional Source Comments (unrecognized sect ion and content) No Status Records Found INFORMATION SOURCE (unrecogn ized section and content) DATE CREATED AUTHOR 04/08/2023 [facility] FOR RECORDS PERTAINING TO PATIENTS [...] BE BASED ON THE PRIMARY CLINICAL RECORDS. [facility]. provides no warranty or guarantee of the accuracy or completeness of information in this document.
--- NOTE | 2024-01-31 14:48 | ED.SOB1 ---
HPI - SOB/Dyspnea General Chief Complaint: Shortness of Breath/Dyspnea Stated Complaint: SOB, LEG SWELLING Time Seen by Provider: 01/31/24 14:37 Source: patient Mode of arrival: Wheelchair History of Present Illness HPI Narrative: 68-year-old male presents because he wanted to have his breathing checked. He has a long history of COPD and comes into the hospital frequently. He has not had a fever and does not complain of chest pain. He wanted to make sure his lungs are okay because he wants to go see the [facility] in [place] tomorrow. He does not complain of chest pain or cough or vomiting Related Data Home Medications Medication Instructions Recorded Confirmed omeprazole 20 mg capsule,delayed 20 mg PO DAILY 10/22/23 01/29/24 release albuterol sulfate 2.5 mg/3 mL 2.5 mg inhalation Q6H PRN 11/02/23 01/29/24 (0.083 %) solution for nebulization shortness of breath or wheezing fluticasone 250 mcg-salmeterol 50 1 inh inhalation BID 12/25/23 01/29/24 mcg/dose blistr powdr for inhalation (Wixela Inhub) tiotropium bromide 2.5 2 inh inhalation BID 12/25/23 01/29/24 mcg/actuation mist for inhalation (Spiriva Respimat) Previous Rx's Medication Instructions Recorded albuterol sulfate 90 mcg/actuation 2 inh inhalation Q6H PRN shortness 12/17/23 aerosol inhaler of breath or wheezing #8.5 grams losartan 100 mg tablet 100 mg PO DAILY #30 tabs 12/27/23 metformin 500 mg tablet 500 mg PO BID #60 tabs 01/30/24 potassium chloride 20 mEq 20 meq PO DAILY #7 tabs 01/30/24 tablet,extended release prednisone 20 mg tablet 20 mg PO DAILY COPD exacerbation 9 01/30/24 days #18 tabs Allergies Allergy/AdvReac Type Severity Reaction Status Date / Time No Known Drug Allergies Allergy Verified 01/29/24 02:30 Review of Systems ROS Narrative A ten point review of systems is negative except as noted above. [facility] Medical History (Updated 01/31/24 @ 15:11 by Diego Lilly MD) HTN (hypertension) ?I10 - Essential (primary) hypertension (ICD-10) Community acquired pneumonia ?J18.9 - Pneumonia, unspecified organism (ICD-10) Chronic obstructive pulmonary disease ?J44.9 - Chronic obstructive pulmonary disease, unspecified (ICD-10) Acute exacerbation of chronic obstructive pulmonary disease (COPD) ?J44.1 - Chronic obstructive pulmonary disease with (acute) exacerbation (ICD-10) RLL pneumonia ?J18.9 - Pneumonia, unspecified organism (ICD-10) COPD (chronic obstructive pulmonary disease) ?J44.9 - Chronic obstructive pulmonary disease, unspecified (ICD-10) Surgical History (Updated 01/29/24 @ 06:45 by Latonia Martin RN) Hx of tonsillectomy ?Z90.89 - Acquired absence of other organs (ICD-10) Family History (Updated 12/25/23 @ 21:28 by Kym Ordaz) Mother Family history of cancer Family history of hypertension Father Family history of cancer Social History Within the past year, how often did you have a drink containing alcohol: 4 or more times a week Within the past year, how many standard drinks containing alcohol did you have on a typical day: 3 or 4 Within the past year, how often did you have six or more drinks on one occasion: less than monthly Total score: 3 Score interpretation: A score of 4 or more indicates drinking is likely to affect patient's safety. Smoking status: Current every day smoker Non-prescribed substance use: cannabis (any form) Previous occupational history: retired Highest level of school completed/degree received: high school graduate Are you now , , , , never or living with a partner: In a typical week, how many times do you talk on the telephone with family, friends, or neighbors: twice per week How often do you get together with friends or relatives: once per week How often do you attend sikh or pentecostal services: never Do you belong to any clubs or organizations such as sikh groups unions, fraternal or athletic groups, or school groups: no Total score: 1 Score interpretation: A score of less than or equal to 1 indicates the most socially isolated. Little interest or pleasure in doing things: several days Feeling down, depressed, or hopeless: not at all Feel stressed/tense/nervous/anxious/difficulty sleeping: not at all Do you think of yourself as: straight/heterosexual Gender Identity: male Exam Narrative Exam Narrative: Nurses note and vital signs reviewed and patient is not hypoxic. General: The patient appears in no apparent distress. Patient is sitting up in a chair and speaking in full sentences. Skin: Warm, dry, no pallor noted. There is no rash noted. Head: Normocephalic, atraumatic Eye: Normal conjunctiva, no drainage Ears, Nose, Mouth, and Throat: oral mucosa is moist. Nares patent. Cardiovascular: Regular Rate and Rhythm Respiratory: Good air movement, breath sounds are equal, a few rhonchi Back: non-tender GI: Soft and nontender Musculoskeletal: The patient has no evidence of calf tenderness, trace bilateral edema is present, symmetrical pulses noted bilaterally Neurological: A&O, normal speech Psychiatric: Cooperative Constitutional Vital Signs, click to edit/add: Last Vital Signs Temp 98.6 F 01/31/24 14:37 Pulse 74 01/31/24 15:03 Resp 20 01/31/24 15:03 BP 167/89 H 01/31/24 14:37 Pulse Ox 96 01/31/24 14:37 Course Vital Signs Vital signs: Vital Signs Temperature 98.6 F 01/31/24 14:37 Pulse Rate 88 01/31/24 14:37 Respiratory Rate 18 01/31/24 14:37 Blood Pressure 167/89 H 01/31/24 14:37 Pulse Oximetry 96 01/31/24 14:37 Temperature 98.6 F 01/31/24 14:37 Pulse Rate 74 01/31/24 15:03 Respiratory Rate 20 01/31/24 15:03 Blood Pressure 167/89 H 01/31/24 14:37 Pulse Oximetry 96 01/31/24 14:37 MDM - SOB/Dyspnea MDM Narrative Medical decision making narrative: The patient was given an aerosol treatment. His main concern today seems to determine whether [facility] a [facility]. [facility]. I have discussed this matter with the patient's. Differential Diagnosis Differential diagnosis: Likely acute exacerbation of chronic obstructive airways disease and other (Anxiety) Discharge Plan Discharge Stand Alone Forms: Portal Instructions Chief Complaint: Shortness of Breath/Dyspnea Clinical Impression: COPD (chronic obstructive pulmonary disease) Patient Disposition: Home, Self-Care Time of Disposition Decision: 15:10 Condition: Good Mode of Transportation: Private Vehicle Prescriptions / Home Meds: No Action omeprazole 20 mg capsule,delayed release(DR/EC) 20 mg PO DAILY albuterol sulfate 2.5 mg /3 mL (0.083 %) solution for nebulization 2.5 mg inhalation Q6H PRN (Reason: shortness of breath or wheezing) Spiriva Respimat 2.5 mcg/actuation mist 2 inh inhalation BID fluticasone propion-salmeterol [Wixela Inhub] 250-50 mcg/dose blister with device 1 inh inhalation BID losartan 100 mg tablet 100 mg PO DAILY Qty: 30 11RF prednisone 20 mg tablet 20 mg PO DAILY 9 Days Qty: 18 0RF Rx Instructions: Use 3 tab x 3 day, 2 tabs x 3 days. 1 tab x 3 days potassium chloride 20 mEq tablet extended release 20 meq PO DAILY Qty: 7 0RF metformin 500 mg tablet 500 mg PO BID Qty: 60 0RF albuterol sulfate 90 mcg/actuation HFA aerosol inhaler 2 inh inhalation Q6H PRN (Reason: shortness of breath or wheezing) Qty: 8.5 2RF Instructions: COPD (Chronic Obstructive Pulmonary Disease) (ED) Referrals: Physician,Non-Staff, MD [Primary Care Provider] - 1 week
[2024-01-31] MEDS: ALBUTEROL SULFATE 2.5 MG/3 ML VIAL NEB IH (15:02)
[2024-01-31 15:03] VITALS: PULSE 74; RESP 20
== END 2024-01-31 15:27 | disposition home or self-care (01) ==
PROVIDERS: Emergency Provider Emergency Medicine
DX: J44.9 Chronic obstructive pulmonary disease, unspecified (principal); I10 Essential (primary) hypertension; Z87.01 Personal history of pneumonia (recurrent); F17.200 Nicotine dependence, unspecified, uncomplicated; R06.02 Shortness of breath
CPT/HCPCS: 94640; 99283

== ENCOUNTER 2024-01-31 17:20 | Emergency (ER) | payer MEDICARE, SELFPAY ==
[2024-01-31 17:24] VITALS: BP 178/92; PULSE 112; RESP 20; TEMP 36.8; O2SAT 94; BMI 25.0
--- OUTSIDE RECORDS SUMMARY | 2024-01-31 17:29 | XMS_ITS | CCD ---
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 Garima Pulliam Basophils/100 WBC (Bld) 0.3 % Normal 0.2-2.0 [facility] Comment on above: Performed By: #### C BC ####[facility] Fwecpcvmda5061 [place], [place] [address]GzAdalberto Pulliam EO # 0.3 103/ul Normal 0.0-0.7 [facility] Comment on above: Performed By: #### C BC ####[facility] Avrsfdbeav[address] [place] [id number]. Garima Pulliam Eosinophils/100 WBC (Bld) 2.8 % Normal 0.9-7.0 [facility] Comment on above: Performed By: #### C BC ####[facility] Affstqtoum[address] [place] [address]Dr. Garima Pulliam Erythrocyte distribution width (RBC) [Ratio] 13.4 % Normal 11.0-15.0 [facility] Comment on above: Performed By: #### C BC ####[facility] Xxehb[address]rdc[address] [place], [place] [address]Dr. Garima Pulliam Hematocrit (Bld) [Volume fraction] 45.7 % Normal 42.0-54.0 [facility] Comment on above: Performed By: #### C BC ####[facility] Mohzlxgjjs[address] [place], [place] [address]Dr. Garima Pulliam Hemoglobin (Bld) [Mass/Vol] 15.2 g/dL Normal 14.0-18.0 [facility] Comment on above: Performed By: #### C BC ####[facility] Xnjsnkioxc[address] [place], [place] [address]Dr. Garima Pulliam IG # 0.02 10e3/ul Normal 0.00-0.03 [facility] Comment on above: Performed By: #### C BC ####[facility] Rgriydwvgs[address] [place], [place] [address]Dr. Garima Pulliam IG % 0.2 % Normal 0.0-0.5 [facility] Comment on above: Performed By: #### C BC ####[facility] Fkipxefjyp6[address] [place], [place] [address]Dr. Garima Pulliam LYMPH # 2.1 103/ul Normal 1.2-3.8 [facility] Comment on above: Performed By: #### C BC ####[facility] Xvwdlpazri[address] [place], [place] [address]Dr. Garima Pulliam Lymphocytes/100 WBC (Bld) 23.7 % Normal 20.5-60.0 [facility] Comment on above: Performed By: #### C BC ####[facility] Akklpvilom260[address] [place] [phone]. Garima Pulliam MANUAL DIFF REQ NO Normal [facility] Comment on above: Performed By: #### C BC ####[facility] Wegvhujdip7026 [place] [phone]. Garima Pulliam MCH (RBC) [Entitic mass] 30.4 pg Normal 25.9-34.0 [facility] Comment on above: Performed By: #### C BC ####[facility] Gbqzbiilab[address] [place], [place] [address]Dr. Garima Pulliam MCHC (RBC) [Mass/Vol] 33.3 g/dL Normal 29.9-35.2 [facility] Comment on above: Performed By: #### C BC ####[facility] Vuuyieaqke[address] [place], [place] [address]Dr. Garima Pulliam MCV (RBC) [Entitic vol] 91.4 fL Normal 80.0-94.0 [facility] Comment on above: Performed By: #### C BC ####[facility] Jiogzzdonq7532[address] [place], [place] [address]Dr. Garima Pulliam MONO # 0.7 103/ul Normal 0.3-0.8 [facility] Comment on above: Performed By: #### C BC ####[facility] Juufrclrwa8[address] [place], [place] [address]Dr. Chapisrenu Pulliam Monocytes/100 WBC (Bld) 8.3 % Normal 1.7-12.0 [facility] Comment on above: Performed By: #### C BC ####[facility] Uddshspz[address] [place], [place] [address]Dr. Garima Pulliam NEUT # 5.8 103/ul Normal 1.4-6.5 [facility] Comment on above: Performed By: #### C BC ####[facility] Nkfsoefxif[address] [place], [place] [address]Dr. Garima Pulliam Neutrophils/100 WBC (Bld) 64.7 % Normal 43.0-75.0 [facility] Comment on above: Performed By: #### C BC ####[facility] Aiqhsysusc8797 [place] [phone]. Garima Pulliam Platelet mean volume (Bld) [Entitic vol] 8.6 fL Critically low 9.5-13.5 [facility] Comment on above: Performed By: #### C BC ####[facility] Qijrepahgj4391 [place] [address]Dr. Garima Pulliam PLT 230 103/ul Normal 150-450 [facility] Comment on above: Performed By: #### C BC ####[facility] Rbsxuhgrfn8372 [place] [address]Dr. Garima Pulliam RBC 5.00 106/ul Normal 4.70-6.10 [facility] Comment on above: Performed By: #### C BC ####[facility] Rsohasvcjg5711 [place] [address]Dr. Garima Pulliam WBC 9.0 103/ul Normal 4.0-11.0 [facility] Comment on above: Performed By: #### C BC ####[facility] Xadwmspamx12[address] [place], [place] [address]Dr. Garima Pulliam MAGNESIUMon 04-04-2023 Magnesium [Mass/Vol] 1.8 mg/dL Normal 1.8-2.4 [facility] Comment on above: Performed By: #### M G ####[facility] Xmpmfbrwif[address] [place], [place] [address]Dr. Garima Pulliam PROF 14(COMP METB)on 023 Albumin [Mass/Vol] 3.8 g/dL Normal 3.4-5.0 [facility] Comment on above: Performed By: #### C MP ####[facility] Eaijkibgdb[address] [place], [place] [address]Dr. Garima Pulliam Albumin/Globulin [Mass ratio] 1.2 {ratio} Normal [facility] Comment on above: Performed By: #### C MP ####[facility] Yyxulkhlxf38[address] [place] [address]Dr. Garima Pulliam ALP [Catalytic activity/Vol] 84 U/L Normal 46-116 [facility] Comment on above: Performed By: #### C MP ####[facility] Yrpbpjvgyc9561 [place] [phone]. Garima Pulliam ALT [Catalytic activity/Vol] 31 U/L Normal 16-63 [facility] Comment on above: Performed By: #### C MP ####[facility] Frnwmulcbk2810 [place] [phone]. Garima Pulliam Anion gap [Moles/Vol] 12.2 mmol/L Normal [facility] Comment on above: Performed By: #### C MP ####[facility] Jaklyjmgkm6320 [place] [phone]. Garima Pulliam AST [Catalytic activity/Vol] 23 U/L Normal 15-37 [facility] Comment on above: Performed By: #### C MP ####[facility] Tzzxcnvwox7[address] [place], [place] [address]Dr. Garima Pulliam Bilirubin [Mass/Vol] 0.5 mg/dL Normal 0.2-1.0 [facility] Comment on above: Performed By: #### C MP ####[facility] Bpqboawyob2[address] [place], [place] [address]Dr. Garima Pulliam Calcium [Mass/Vol] 9.2 mg/dL Normal 8.5-10.1 [facility] Comment on above: Performed By: #### C MP ####[facility] Qxsdklwhvw[address] [place], [place] [address]Dr. Garima Pulliam Chloride [Moles/Vol] 103 mmol/L Normal 98-107 [facility] Comment on above: Performed By: #### C MP ####[facility] Zffdxnxk[address] [place], [place] [address]Dr. Garima Pulliam CO2 [Moles/Vol] 28.5 mmol/L Normal 21.0-32.0 [facility] Comment on above: Performed By: #### C MP ####[facility] Inagxlawbz[address] [place], [place] [address]Dr. Garima Pulliam Creatinine [Mass/Vol] 0.74 mg/dL Normal 0.70-1.30 [facility] Comment on above: Performed By: #### C MP ####[facility] Ttdvkofluu6073 [place] [phone]. Garima Pulliam EGFR-AF MALTESE >60 Normal >=60 [facility] Comment on above: Performed By: #### C MP ####[facility] Hucwhksoib7584 [place] [phone]. Garima Pulliam EGFR-NON AF MALTESE >60 Normal >=60 [facility] Comment on above: Performed By: #### C MP ####[facility] Zojlsyiosk6541 [place] [address]Dr. Garima Pulliam Globulin (S) [Mass/Vol] 3.1 g/dL Normal [facility] Comment on above: Performed By: #### C MP ####[facility] Hhprafwdby3775 [place] [address]Dr. Garima Pulliam Glucose [Mass/Vol] 93 mg/dL Normal 74-106 [facility] Comment on above: Performed By: #### C MP ####[facility] Ogtjhzerep6947 [place] [address]Dr. Garima Pulliam Potassium [Moles/Vol] 3.7 mmol/L Normal 3.5-5.1 [facility] Comment on above: Performed By: #### C MP ####[facility] Coshaiyhjt8667 [place] [address]Dr. Garima Pulliam Protein [Mass/Vol] 6.9 g/dL Normal 6.4-8.2 [facility] Comment on above: Performed By: #### C MP ####[facility] Cxiqmpzacf8659 [place] [address]Dr. Garima Pulliam Sodium [Moles/Vol] 140 mmol/L Normal 136-145 [facility] Comment on above: Performed By: #### C MP ####[facility] Xafwzkdtoe[address] [place] [address]Dr. Garima Pulliam Urea nitrogen [Mass/Vol] 8.0 mg/dL Normal 7.0-18.0 [facility] Comment on above: Performed By: #### C MP ####[facility] Skkihfzbau8721 [place] [address]Dr. Garima Pulliam Urea nitrogen/Creatinine [Mass ratio] 10.8 mg/mg Normal [facility] Comment on above: Performed By: #### C MP ####[facility] Eplvczvnls8922 [place] [address]Dr. Garima Pulliam AMMONIAon 03-30-2023 Ammonia (P) [Moles/Vol] 11 umol/L Normal 11-32 [facility] Comment on above: Performed By: #### A MM ####[facility] Zrbogcpjxy[address] [place], [place] [address]Dr. Chapisrenu Pulliam CARDIAC NASH ADMITon 023 CK [Catalytic activity/Vol] 232 U/L Normal 39-308 [facility] Comment on above: Performed By: #### C DAVID, CMADM ####[facility] Haadxefdjq97[address] [place], [place] [address]Dr. Chapisrenu Pulliam CK.MB [Mass/Vol] 4.83 ng/mL Critically high <=3.60 [facility] Comment on above: Performed By: #### C DAVID, CMADM ####[facility] Kjugucvnul[address] [place], [place] [address]Dr. Garima Pulliam HSTROP 10.5 pg/mL Normal 4.0-76.1 [facility] Comment on above: Result Comment: CUT- OFF POINTS HAVE BEEN ESTABLISHED BASED ON THE FOURTH UNIVERSAL DEFINITIONS OF MYOCARDIALINFARCTION. THE UPPER REFERENCE LIMIT (URL) OF TROPONIN, DEFINED THE 99TH PERCENTILE OFcTnI DISTRIBUTION IN A REFERENCE POPULATION, HAS BEEN CONFIRMED THE DECISION THRESHOLDFOR NE DIAGNOSIS. Performed By: #### C DAVID, CMADM ####[facility] Alzbhvgncu6774 [place] [address]Dr. Chapisrenu Pulliam DORIS 79 ng/mL Normal 16-96 [facility] Comment on above: Performed By: #### C DAVID, CMADM ####[facility] Ecwjbpqghm[address] [place], [place] [address]Dr. Chapisrenu Pulliam CBC AUTO DIFFon 03-30-2023 BASO # 0.0 103/ul Normal 0.0-0.1 [facility] Comment on above: Performed By: #### C BC ####[facility] Chblscfxlr4887 [place] [phone]. Garima Pulliam Basophils/100 WBC (Bld) 0.1 % Critically low 0.2-2.0 [facility] Comment on above: Performed By: #### C BC ####[facility] Espopppdhx9[address] [place], [place] [address]Dr. Garima Pulliam EO # 0.3 103/ul Normal 0.0-0.7 [facility] Comment on above: Performed By: #### C BC ####[facility] Xwqvihdpvm[address] [place], [place] [address]Dr. Garima Pulliam Eosinophils/100 WBC (Bld) 3.3 % Normal 0.9-7.0 [facility] Comment on above: Performed By: #### C BC ####[facility] Sdfjwjencr6[address] [place], [place] [address]Dr. Garima Pulliam Erythrocyte distribution width (RBC) [Ratio] 13.5 % Normal 11.0-15.0 [facility] Comment on above: Performed By: #### C BC ####[facility] Ahaleiljue[address] [place], [place] [address]Dr. Garima Pulliam Hematocrit (Bld) [Volume fraction] 42.9 % Normal 42.0-54.0 [facility] Comment on above: Performed By: #### C BC ####[facility] Lbdhchelng[address] [place], [place] [address]Dr. Garima Pulliam Hemoglobin (Bld) [Mass/Vol] 13.9 g/dL Critically low 14.0-18.0 [facility] Comment on above: Performed By: #### C BC ####[facility] Riolaonype[address] [place], [place] [address]Dr. Garima Pulliam IG # 0.01 10e3/ul Normal 0.00-0.03 [facility] Comment on above: Performed By: #### C BC ####[facility] Kbyqybhyyo[address] [place], [place] [address]Dr. Garima Pulliam IG % 0.1 % Normal 0.0-0.5 [facility] Comment on above: Performed By: #### C BC ####[facility] Aupsqiyxvc4057 [place] [phone]. Garima Pulliam LYMPH # 1.7 103/ul Normal 1.2-3.8 [facility] Comment on above: Performed By: #### C BC ####[facility] Tbfuxmaulw1846 [place] [phone]. Garima Pulliam Lymphocytes/100 WBC (Bld) 22.8 % Normal 20.5-60.0 [facility] Comment on above: Performed By: #### C BC ####[facility] Yojmsioiqr0722 [place] [phone]. Garima Pulliam MANUAL DIFF REQ NO Normal [facility] Comment on above: Performed By: #### C BC ####[facility] Ozkalnnppv6372 [place] [phone]. Garima Pulliam MCH (RBC) [Entitic mass] 30.5 pg Normal 25.9-34.0 [facility] Comment on above: Performed By: #### C BC ####[facility] Vepanzopqb2789 [place] [phone]. Garima Pulliam MCHC (RBC) [Mass/Vol] 32.4 g/dL Normal 29.9-35.2 [facility] Comment on above: Performed By: #### C BC ####[facility] Ttjfiyutsg2116 [place] [phone]. Garima Pulliam MCV (RBC) [Entitic vol] 94.1 fL Critically high 80.0-94.0 [facility] Comment on above: Performed By: #### C BC ####[facility] Xpvusgvrwl2102 [place] [phone]. Garima Pulliam MONO # 0.7 103/ul Normal 0.3-0.8 [facility] Comment on above: Performed By: #### C BC ####[facility] Oemhkatsyy5070 [place] [phone]. Garima Pulliam Monocytes/100 WBC (Bld) 8.6 % Normal 1.7-12.0 [facility] Comment on above: Performed By: #### C BC ####[facility] Vmbbeudiyg4122 [place] [phone]. Garima Pulliam NEUT # 4.9 103/ul Normal 1.4-6.5 [facility] Comment on above: Performed By: #### C BC ####[facility] Qepnztrkqf6997 [place] [phone]. Garima Pulliam Neutrophils/100 WBC (Bld) 65.1 % Normal 43.0-75.0 [facility] Comment on above: Performed By: #### C BC ####[facility] Jexvnctuor2204 [place] [phone]. Garima Pulliam Platelet mean volume (Bld) [Entitic vol] 8.5 fL Critically low 9.5-13.5 [facility] Comment on above: Performed By: #### C BC ####[facility] Grqqmajehp3053 [place] [phone]. Garima Pulliam PLT 219 103/ul Normal 150-450 [facility] Comment on above: Performed By: #### C BC ####[facility] Ibbxqwiscx3437 [place] [phone]. Garima Pulliam RBC 4.56 106/ul Critically low 4.70-6.10 [facility] Comment on above: Performed By: #### C BC ####[facility] Thvumkfvnx4045 [place] [phone]. Garima Pulliam WBC 7.6 103/ul Normal 4.0-11.0 [facility] Comment on above: Performed By: #### C BC ####[facility] Bqgeupnwga3826 [place] [phone]. Garima Pulliam LACTATE/LACTIC ACIDon 2022 Lactate [Moles/Vol] 1.2 mmol/L Normal 0.4-2.0 [facility] Comment on above: Performed By: #### L ACT ####[facility] Octiygblgm2312 [place] [phone]. Garima Pulliam MAGNESIUMon 03-30-2023 Magnesium [Mass/Vol] 1.8 mg/dL Normal 1.8-2.4 [facility] Comment on above: Performed By: #### M G ####[facility] Xmqosafsjg5545 [place] [address]Dr. Garima Pulliam PROF 14(COMP METB)on 023 Albumin [Mass/Vol] 3.5 g/dL Normal 3.4-5.0 [facility] Comment on above: Performed By: #### C DAVID, NANCY ####[facility] Dexickasmc0332 [place] [address]Dr. Garima Pulliam Albumin/Globulin [Mass ratio] 1.2 {ratio} Normal [facility] Comment on above: Performed By: #### C NANCY HERNANDEZ ####[facility] Lklxhsjuyp1130 [place] [address]Dr. Garima Pulliam ALP [Catalytic activity/Vol] 85 U/L Normal 46-116 [facility] Comment on above: Performed By: #### Ethan HERNANDEZ, NANCY ####[facility] Gidcffkqer8460 [place] [address]Dr. Garima Pulliam ALT [Catalytic activity/Vol] 29 U/L Normal 16-63 [facility] Comment on above: Performed By: #### NANCY Long MP ####[facility] Ohejzlsskw6130 [place] [address]Dr. Garima Pulliam Anion gap [Moles/Vol] 8.0 mmol/L Normal [facility] Comment on above: Performed By: #### C DAVID, NANCY ####[facility] Bljsjpdhny6640 [place] [address]Dr. Garima Pulliam AST [Catalytic activity/Vol] 18 U/L Normal 15-37 [facility] Comment on above: Performed By: #### C DAVID, NANCY ####[facility] Ekeksqxnkb2931 [place] [address]Dr. Garima Pulliam Bilirubin [Mass/Vol] 0.4 mg/dL Normal 0.2-1.0 [facility] Comment on above: Performed By: #### NANCY Long MP ####[facility] Qcijmyxxay3224 [place] [address]Dr. Garima Pulliam Calcium [Mass/Vol] 8.8 mg/dL Normal 8.5-10.1 [facility] Comment on above: Performed By: #### C DAVID, NANCY ####[facility] Lqoyycabma5930 [place] [address]Dr. Garima Pulliam Chloride [Moles/Vol] 108 mmol/L Critically high 98-107 [facility] Comment on above: Performed By: #### C DAVID, NANCY ####[facility] Cbucfykegm7498 [place] [address]Dr. Garima Pulliam CO2 [Moles/Vol] 29.6 mmol/L Normal 21.0-32.0 [facility] Comment on above: Performed By: #### C DAVID, NANCY ####[facility] Byglqvrawj0189 [place] [address]Dr. Garima Pulliam Creatinine [Mass/Vol] 0.77 mg/dL Normal 0.70-1.30 [facility] Comment on above: Performed By: #### C DAVID, NANCY ####[facility] Tecywjerxx7403 [place] [address]Dr. Garima Pulliam EGFR-AF MALTESE >60 Normal >=60 [facility] Comment on above: Performed By: #### C DAVID, NANCY ####[facility] Uwymsiubqn8263 [place] [address]Dr. Garima Pulliam EGFR-NON AF MALTESE >60 Normal >=60 [facility] Comment on above: Performed By: #### C DAVID, NANCY ####[facility] Filgvomeec2266 [place] [phone]. Garima Pulliam Globulin (S) [Mass/Vol] 2.8 g/dL Normal [facility] Comment on above: Performed By: #### C DAVID, NANCY ####[facility] Ayafgnazse9244 [place] [address]Dr. Garima Pulliam Glucose [Mass/Vol] 207 mg/dL Critically high 74-106 [facility] Comment on above: Performed By: #### C DAVID, NANCY ####[facility] Gawikabvqy5018 [place] [address]Dr. Garima Pulliam Potassium [Moles/Vol] 4.6 mmol/L Normal 3.5-5.1 [facility] Comment on above: Performed By: #### C DAVID, CMADM ####[facility] Kvcyvubrje3366 [place] [address]Dr. Garima Pulliam Protein [Mass/Vol] 6.3 g/dL Critically low 6.4-8.2 Th e [facility] Comment on above: Performed By: #### C DAVID, CMADM ####[facility] Efkhdjtdqw9227 [place] [address]Dr. Garima Pulliam Sodium [Moles/Vol] 141 mmol/L Normal 136-145 [facility] Comment on above: Performed By: #### C DAVID, CMADM ####[facility] Njossiqeql1564 [place] [address]Dr. Chapisrenu Pulliam Urea nitrogen [Mass/Vol] 9.0 mg/dL Normal 7.0-18.0 [facility] Comment on above: Performed By: #### C DAVID, CMADM ####[facility] Mkyobeqvdo4168 [place] [address]Dr. Garima Pulliam Urea nitrogen/Creatinine [Mass ratio] 11.7 mg/mg Normal [facility] Comment on above: Performed By: #### C DAVID, CMADM ####[facility] Beolyhaigm7843 [place] [address]Dr. Chapisrenu Pulliam XR CHEST 1 Von 03-30-2023 XR CHEST 1 V Normal [facility] BNPon 03-27-2023 Natriuretic peptide B (Bld) [Mass/Vol] 251.0 pg/mL Normal <=900.0 [facility] Comment on above: Performed By: #### C MP, BNP, LIPID ####[facility] Oqjiatkykr[address] [place], [place] [address]Dr. Garima Heraclio GLYCOHEMOGLOBIN A1Con 2022 ADA RECOMMENDATION SEE BELOW Normal [facility] Comment on above: Result Comment: ADA RECOMMENDED LIMIT 4.0 - 6.0 ADA THERAPEUTIC TARGET < 7.0 ACTION SUGGESTED > 7.0 Performed By: #### A 1C ####[facility] Dqqxzuqdjy2343 [place] [address]Dr. Garima Pulliam Glucose [Mass/Vol] 180 mg/dL Normal [facility] Comment on above: Performed By: #### A 1C ####[facility] Qacahzyjfy5260 [place] [address]Dr. Garima Pulliam HbA1c (Bld) [Mass fraction] 7.9 % Critically high 4.5-6.2 [facility] Comment on above: Performed By: #### A 1C ####[facility] Bxnmdwwvxy[address] [place], [place] [address]Dr. Garima Pulliam HEMOGRAM AND PLATELon 2022 Hematocrit (Bld) [Volume fraction] 45.7 % Normal 42.0-54.0 [facility] Comment on above: Performed By: #### H H ####[facility] Tjjpohblog[address] [place], [place] [address]Dr. Garima Pulliam Hemoglobin (Bld) [Mass/Vol] 15.1 g/dL Normal 14.0-18.0 [facility] Comment on above: Performed By: #### H H ####[facility] Zkvoszqvmr[address] [place], [place] [address]Dr. Garima Pulliam MCH (RBC) [Entitic mass] 30.0 pg Normal 25.9-34.0 [facility] Comment on above: Performed By: #### H H ####[facility] [address] [place], [place] [address]Dr. Garima Pulliam MCHC (RBC) [Mass/Vol] 33.0 g/dL Normal 29.9-35.2 [facility] Comment on above: Performed By: #### H H ####[facility] Ivbnsnehxw[address] [place], [place] [address]Dr. Garima Pulliam MCV (RBC) [Entitic vol] 90.7 fL Normal 80.0-94.0 [facility] Comment on above: Performed By: #### H H ####[facility] Uixemthddk[address] [place], [place] [address]Dr. Garima Pulliam PLT 222 103/ul Normal 150-450 [facility] Comment on above: Performed By: #### H H ####[facility] Vciwtwrdsf[address] [place] [id number]. Garima Pulliam RBC 5.04 106/ul Normal 4.70-6.10 [facility] Comment on above: Performed By: #### H H ####[facility] Qmomjwsbxo6477 [place] [id number]. Garima Pulliam WBC 8.7 103/ul Normal 4.0-11.0 [facility] Comment on above: Performed By: #### H H ####[facility] Msguljrmbl[address] [place] [address]Dr. Garima Pulliam LIPID PROFILEon 03-27-2023 CHOL-HDL RATIO NORM SEE BELOW Normal [facility] Comment on above: Result Comment: 3.3 - 4.4 LOW RISK 4.4 - 7.1 AVERAGE RISK 7.1 - 11.0 MODERATE RISK >11.0 HIGH RISK Performed By: #### C MP, BNP, LIPID ####[facility] Qhtygwohiw[address] [place] [id number]. Garima Pulliam Cholesterol [Mass/Vol] 113 mg/dL Normal <=200 [facility] Comment on above: Performed By: #### C MP, BNP, LIPID ####[facility] Nmhttdkyjf8019 [place] [id number]. Garima Pulliam Cholesterol in HDL [Mass/Vol] 51 mg/dL Normal 40-60 [facility] Comment on above: Performed By: #### C MP, BNP, LIPID ####[facility] Mugnjfwtnr2513 [place] [id number]. Garima Pulliam Cholesterol in LDL [Mass/Vol] 49.8 mg/dL Normal [facility] Comment on above: Performed By: #### C MP, BNP, LIPID ####[facility] Snyegvshya[address] [place] [id number]. Garima Pulliam Cholesterol.total/Cho lesterol in HDL [Mass ratio] 2.2 {ratio} Normal [facility] Comment on above: Performed By: #### C MP, BNP, LIPID ####[facility] Immdudwovi[address] [place] [address]Dr. Garima Pulliam HDL NORMAL > or = 60 mg/dl - LOW CARDIOVASCULAR RISK <40 mg/dl - HIGH CARDIOVASCULAR RISK Normal [facility] Comment on above: Performed By: #### C MP, BNP, LIPID ####[facility] Lxjcbfqcmo8[address] [place] [address]Dr. Garima Pulliam LDL CALC NORMAL SEE BELOW Normal [facility] Comment on above: Result Comment: <100 mg/dl OPTIMAL 100 - 129 mg/dl NEAR OR ABOVE OPTIMAL 130 - 159 mg/dl BORDERLINE HIGH 160 - 189 mg/dl HIGH >190 mg/dl VERY HIGH Performed By: #### C MP, BNP, LIPID ####[facility] Higfsgxfvi50[address] [place] [address]Dr. Garima Pulliam Triglyceride [Mass/Vol] 61 mg/dL Normal <=150 [facility] Comment on above: Performed By: #### C MP, BNP, LIPID ####[facility] Ylxfpsiscb8914 [place] [address]Dr. Garima Pulliam VLDL CALC 12.2 mg/dL Normal [facility] Comment on above: Performed By: #### C MP, BNP, LIPID ####[facility] Inbsfhncuz0612 [place] [address]Dr. Garima Pulliam PROF 14(COMP METB)on 023 Albumin [Mass/Vol] 3.5 g/dL Normal 3.4-5.0 [facility] Comment on above: Performed By: #### C MP, BNP, LIPID ####[facility] Bzhjwkethw3612 [place] [address]Dr. Garima Pulliam Albumin/Globulin [Mass ratio] 1.2 {ratio} Normal [facility] Comment on above: Performed By: #### C MP, BNP, LIPID ####[facility] Fglapwsiah40[address] [place] [address]Dr. Garima Pulliam ALP [Catalytic activity/Vol] 82 U/L Normal 46-116 [facility] Comment on above: Performed By: #### C MP, BNP, LIPID ####[facility] Kkboqswlhu1666 [place] [address]Dr. Garima Pulliam ALT [Catalytic activity/Vol] 33 U/L Normal 16-63 [facility] Comment on above: Performed By: #### C MP, BNP, LIPID ####[facility] Aaurromrxc7694 [place] [address]Dr. Garima Pulliam Anion gap [Moles/Vol] 9.9 mmol/L Normal [facility] Comment on above: Performed By: #### C MP, BNP, LIPID ####[facility] Lozmfizpjw9059 [place] [address]Dr. Garima Pulliam AST [Catalytic activity/Vol] 24 U/L Normal 15-37 [facility] Comment on above: Performed By: #### C MP, BNP, LIPID ####[facility] Nnxfnycrvn8463 [place] [address]Dr. Garima Pulliam Bilirubin [Mass/Vol] 0.6 mg/dL Normal 0.2-1.0 [facility] Comment on above: Performed By: #### C MP, BNP, LIPID ####[facility] Zqpauoexyd1339 [place] [address]Dr. Garima Pulliam Calcium [Mass/Vol] 9.2 mg/dL Normal 8.5-10.1 [facility] Comment on above: Performed By: #### C MP, BNP, LIPID ####[facility] Ualsjdvgkn0[address] [place] [address]Dr. Garima Pulliam Chloride [Moles/Vol] 106 mmol/L Normal 98-107 [facility] Comment on above: Performed By: #### C MP, BNP, LIPID ####[facility] Yktcungcvf9707 [place] [address]Dr. Garima Pulliam CO2 [Moles/Vol] 32.3 mmol/L Critically high 21.0-32.0 [facility] Comment on above: Performed By: #### C MP, BNP, LIPID ####[facility] Zbrolpnifa89[address] [place] [address]Dr. Garima Pulliam Creatinine [Mass/Vol] 0.70 mg/dL Normal 0.70-1.30 [facility] Comment on above: Performed By: #### C MP, BNP, LIPID ####[facility] Fatepptatv8766 [place] [address]Dr. Chapisrenu Heraclio EGFR-AF MALTESE >60 Normal >=60 [facility] Comment on above: Performed By: #### C MP, BNP, LIPID ####[facility] Eopgbmyfeh0122 [place] [address]Dr. Garima Pulliam EGFR-NON AF MALTESE >60 Normal >=60 [facility] Comment on above: Performed By: #### C MP, BNP, LIPID ####[facility] Jobvlvthww0444 [place] [address]Dr. Garima Pulliam Globulin (S) [Mass/Vol] 2.9 g/dL Normal [facility] Comment on above: Performed By: #### C MP, BNP, LIPID ####[facility] Xxkpwfrdvd3164 [place] [address]Dr. Garima Pulliam Glucose [Mass/Vol] 111 mg/dL Critically high 74-106 [facility] Comment on above: Performed By: #### C MP, BNP, LIPID ####[facility] Ijzoucnjgb[address] [place], [place] [address]Dr. Garima Pulliam Potassium [Moles/Vol] 4.2 mmol/L Normal 3.5-5.1 [facility] Comment on above: Performed By: #### C MP, BNP, LIPID ####[facility] Kmxrjdvgnh[address] [place], [place] [address]Dr. Garima Pulliam Protein [Mass/Vol] 6.4 g/dL Normal 6.4-8.2 [facility] Comment on above: Performed By: #### C MP, BNP, LIPID ####[facility] Timbhwyiby[address] [place], [place] [address]Dr. Garima Pulliam Sodium [Moles/Vol] 144 mmol/L Normal 136-145 [facility] Comment on above: Performed By: #### C MP, BNP, LIPID ####[facility] Wraycsoaih[address] [place], [place] [address]Dr. Garima Pulliam Urea nitrogen [Mass/Vol] 7.0 mg/dL Normal 7.0-18.0 [facility] Comment on above: Performed By: #### C MP, BNP, LIPID ####[facility] Xahzhpjymd[address] [place], [place] [address]Dr. Garima Pulliam Urea nitrogen/Creatinine [Mass ratio] 10.0 mg/mg Normal [facility] Comment on above: Performed By: #### C MP, BNP, LIPID ####[facility] Whsaimzfkf[address] [place], [place] [address]Dr. Garima Pulliam BNPon 03-22-2023 Natriuretic peptide B (Bld) [Mass/Vol] 103.0 pg/mL Normal <=900.0 [facility] Comment on above: Performed By: #### B SAW EDGE FUSER CIRCULAR, BMP ####[facility] Xcfmfocmyy[address] [place], [place] [address]Dr. Garima Pulliam CBC AUTO DIFFon 03-22-2023 BASO # 0.0 103/ul Normal 0.0-0.1 [facility] Comment on above: Performed By: #### C BC ####[facility] Vkugzbnzln[address] [place], [place] [address]Dr. Garima Pulliam Basophils/100 WBC (Bld) 0.3 % Normal 0.2-2.0 [facility] Comment on above: Performed By: #### C BC ####[facility] Mesmorpmsz[address] [place], [place] [address]Dr. Garima Pulliam EO # 0.2 103/ul Normal 0.0-0.7 [facility] Comment on above: Performed By: #### C BC ####[facility] Jepbxxxdeq[address] [place], [place] [address]Dr. Garima Pulliam Eosinophils/100 WBC (Bld) 2.2 % Normal 0.9-7.0 [facility] Comment on above: Performed By: #### C BC ####[facility] Zmzkplsjws[address] [place], [place] [address]Dr. Garima Pulliam Erythrocyte distribution width (RBC) [Ratio] 13.2 % Normal 11.0-15.0 [facility] Comment on above: Performed By: #### C BC ####[facility] Wfbiwxbnoz2992 [place] [address]Dr. Garima Pulliam Hematocrit (Bld) [Volume fraction] 43.4 % Normal 42.0-54.0 [facility] Comment on above: Performed By: #### C BC ####[facility] Uvgcqbboal5918 [place] [address]Dr. Garima Heraclio Hemoglobin (Bld) [Mass/Vol] 14.3 g/dL Normal 14.0-18.0 [facility] Comment on above: Performed By: #### C BC ####[facility] Ginayjilsy[address] [place], [place] [address]Dr. Garima Heraclio IG # 0.02 10e3/ul Normal 0.00-0.03 [facility] Comment on above: Performed By: #### C BC ####[facility] Wphvhptadi8[address] [place], [place] [address]Dr. Garima Pulliam IG % 0.3 % Normal 0.0-0.5 [facility] Comment on above: Performed By: #### C BC ####[facility] Uluwwnobpe[address] [place], [place] [address]Dr. Garima Heraclio LYMPH # 2.0 103/ul Normal 1.2-3.8 [facility] Comment on above: Performed By: #### C BC ####[facility] Rfdnjejpls[address] [place], [place] [address]Dr. Chapisrenu Pulliam Lymphocytes/100 WBC (Bld) 24.8 % Normal 20.5-60.0 [facility] Comment on above: Performed By: #### C BC ####[facility] Krgfxcfsgy[address] [place], [place] [address]Dr. Chapisrenu Pulliam MANUAL DIFF REQ NO Normal [facility] Comment on above: Performed By: #### C BC ####[facility] Opqfkldapo4[address] [place], [place] [address]Dr. Garima Pulliam MCH (RBC) [Entitic mass] 30.0 pg Normal 25.9-34.0 [facility] Comment on above: Performed By: #### C BC ####[facility] Xxkxthovod5469 [place] [id number]. Garima Heraclio MCHC (RBC) [Mass/Vol] 32.9 g/dL Normal 29.9-35.2 [facility] Comment on above: Performed By: #### C BC ####[facility] Myasmapqur6750 [place] [id number]. Garima Pulliam MCV (RBC) [Entitic vol] 91.0 fL Normal 80.0-94.0 [facility] Comment on above: Performed By: #### C BC ####[facility] Uflojvluko[address] [place], [place] [address]Dr. Garima Pulilam MONO # 0.8 103/ul Normal 0.3-0.8 [facility] Comment on above: Performed By: #### C BC ####[facility] Pjbpttjstr[address] [place], [place] [address]Dr. Garima Pulliam Monocytes/100 WBC (Bld) 9.7 % Normal 1.7-12.0 [facility] Comment on above: Performed By: #### C BC ####[facility] Goqcxirucq5[address] [place], [place] [address]Dr. Garima Pulliam NEUT # 4.9 103/ul Normal 1.4-6.5 [facility] Comment on above: Performed By: #### C BC ####[facility] Bqksbgexbw[address] [place], [place] [address]Dr. Garima Pulliam Neutrophils/100 WBC (Bld) 62.7 % Normal 43.0-75.0 [facility] Comment on above: Performed By: #### C BC ####[facility] Kdookcqtwr[address] [place], [place] [address]Dr. Garima Pulliam Platelet mean volume (Bld) [Entitic vol] 8.8 fL Critically low 9.5-13.5 [facility] Comment on above: Performed By: #### C BC ####[facility] Jtvgjlykft[address] [place], [place] [address]Dr. Garima Pulliam PLT 198 103/ul Normal 150-450 [facility] Comment on above: Performed By: #### C BC ####[facility] Mbtgsjwcbc0983 [place] [id number]. Chapisrenu Pulliam RBC 4.77 106/ul Normal 4.70-6.10 [facility] Comment on above: Performed By: #### C BC ####[facility] Avcqltawvo7913 [place] [id number]. Garima Pulliam WBC 7.9 103/ul Normal 4.0-11.0 [facility] Comment on above: Performed By: #### C BC ####[facility] Xmizoaefna9274 [place] [address]Dr. Garima Pulliam D-DIMERon 03-22-2023 D-DIMER 0.85 mg/L FEU Critically high <=0.59 [facility] Comment on above: Performed By: #### D DIM ####[facility] Wbauhvvkby[address] [place], [place] [address]Dr. Garima Pulliam D-DIMER COMMENTS SEE BELOW Normal [facility] Comment on above: Result Comment: Incr [...] generalized hospitalization. Performed By: #### D DIM ####[facility] Rbdyhpdhcr57[address] [place] [address]Dr. Garima Pulliam PROF CHEM 8 (BAS METB)on Anion gap [Moles/Vol] 6.9 mmol/L Normal [facility] Comment on above: Performed By: #### B SAW EDGE FUSER CIRCULAR, BMP ####[facility] Lsabekxbzk6694 [place] [address]Dr. Garima Pulliam Calcium [Mass/Vol] 8.9 mg/dL Normal 8.5-10.1 [facility] Comment on above: Performed By: #### B SAW EDGE FUSER CIRCULAR, BMP ####[facility] Wnjdglpkyl1933 [place] [phone]. Garima Pulliam Chloride [Moles/Vol] 101 mmol/L Normal 98-107 [facility] Comment on above: Performed By: #### B SAW EDGE FUSER CIRCULAR, BMP ####[facility] Tgabzorhpj1412 [place] [phone]. Garima Pulliam CO2 [Moles/Vol] 30.7 mmol/L Normal 21.0-32.0 [facility] Comment on above: Performed By: #### B SAW EDGE FUSER CIRCULAR, BMP ####[facility] Dygzbuzwcn4658 [place] [phone]. Garima Pulliam Creatinine [Mass/Vol] 0.82 mg/dL Normal 0.70-1.30 [facility] Comment on above: Performed By: #### B SAW EDGE FUSER CIRCULAR, BMP ####[facility] Tybgoqryhi4[address] [place] [address]Dr. Garima Pulliam EGFR-AF MALTESE >60 Normal >=60 [facility] Comment on above: Performed By: #### B SAW EDGE FUSER CIRCULAR, BMP ####[facility] Ucabpdxrvv7902 [place] [address]Dr. Garima Pulliam EGFR-NON AF MALTESE >60 Normal >=60 [facility] Comment on above: Performed By: #### B SAW EDGE FUSER CIRCULAR, BMP ####[facility] Jbydfznqtr[address] [place], [place] [address]Dr. Garima Pulliam Glucose [Mass/Vol] 339 mg/dL Critically high 74-106 [facility] Comment on above: Performed By: #### B SAW EDGE FUSER CIRCULAR, BMP ####[facility] Ygqcpqotkx4833 [place] [phone]. Garima Pulliam Potassium [Moles/Vol] 3.6 mmol/L Normal 3.5-5.1 [facility] Comment on above: Performed By: #### B SAW EDGE FUSER CIRCULAR, BMP ####[facility] Lxkzvcluxa3931 [place] [address]Dr. Garima Pulliam Sodium [Moles/Vol] 135 mmol/L Critically low 136-145 [facility] Comment on above: Performed By: #### B SAW EDGE FUSER CIRCULAR, BMP ####[facility] Igarqotmkr9191 [place] [id number]. Garima Pulliam Urea nitrogen [Mass/Vol] 11.0 mg/dL Normal 7.0-18.0 [facility] Comment on above: Performed By: #### B SAW EDGE FUSER CIRCULAR, BMP ####[facility] Mefmcvmgwv0508 [place] [id number]. Garima Pulliam Urea nitrogen/Creatinine [Mass ratio] 13.4 mg/mg Normal [facility] Comment on above: Performed By: #### B SAW EDGE FUSER CIRCULAR, BMP ####[facility] Inckvjbcwb137[address] [place], [place] [address]Dr. Garima Pulliam US VERONICA DOP LEG BILon 023 US VERONICA DOP LEG BENOIT Normal [facility] BNPon 03-18-2023 Natriuretic peptide B (Bld) [Mass/Vol] 226.0 pg/mL Normal <=900.0 [facility] Comment on above: Performed By: #### B SAW EDGE FUSER CIRCULAR, BMP ####[facility] Pkwzotqlsu[address] [place], [place] [address]Dr. Garima Pulliam CBC AUTO DIFFon 03-18-2023 BASO # 0.0 103/ul Normal 0.0-0.1 [facility] Comment on above: Performed By: #### C BC ####[facility] Gkfhlodtjl[address] [place], [place] [address]Dr. Garima Heraclio Basophils/100 WBC (Bld) 0.2 % Normal 0.2-2.0 [facility] Comment on above: Performed By: #### C BC ####[facility] Kizphrzzka[address] [place], [place] [address]Dr. Garima Pulliam EO # 0.3 103/ul Normal 0.0-0.7 [facility] Comment on above: Performed By: #### C BC ####[facility] Hxnffihebt[address] [place], [place] [address]Dr. Garima Heraclio Eosinophils/100 WBC (Bld) 2.5 % Normal 0.9-7.0 [facility] Comment on above: Performed By: #### C BC ####[facility] Adlmjtyfes[address] [place], [place] [address]Dr. Garima Pulliam Erythrocyte distribution width (RBC) [Ratio] 13.2 % Normal 11.0-15.0 [facility] Comment on above: Performed By: #### C BC ####[facility] Rkoznoolkz3833 [place] [address]Dr. Garima Pulliam Hematocrit (Bld) [Volume fraction] 45.8 % Normal 42.0-54.0 [facility] Comment on above: Performed By: #### C BC ####[facility] Xbwwojqokx2200 [place] [address]Dr. Garima Pulliam Hemoglobin (Bld) [Mass/Vol] 15.3 g/dL Normal 14.0-18.0 [facility] Comment on above: Performed By: #### C BC ####[facility] Bkvhkffrkw39[address] [place], [place] [address]Dr. Garima Heraclio IG # 0.02 10e3/ul Normal 0.00-0.03 [facility] Comment on above: Performed By: #### C BC ####[facility] Ufhvbpsqwc[address] [place], [place] [address]Dr. Garima Pulliam IG % 0.2 % Normal 0.0-0.5 [facility] Comment on above: Performed By: #### C BC ####[facility] Xiqhoihhck[address] [place], [place] [address]Dr. Garima Heraclio LYMPH # 1.8 103/ul Normal 1.2-3.8 [facility] Comment on above: Performed By: #### C BC ####[facility] Gtvxzpkphy822[address] [place], [place] [address]Dr. Chapisrenu Pulliam Lymphocytes/100 WBC (Bld) 18.3 % Critically low 20.5-60.0 [facility] Comment on above: Performed By: #### C BC ####[facility] Hfuydlntoi4[address] [place], [place] [address]Dr. Chapisrenu Pulliam MANUAL DIFF REQ NO Normal [facility] Comment on above: Performed By: #### C BC ####[facility] Imjldnsiui8865[address] [place], [place] [address]Dr. Garima Pulliam MCH (RBC) [Entitic mass] 30.5 pg Normal 25.9-34.0 [facility] Comment on above: Performed By: #### C BC ####[facility] Ueczalqznj5512 [place] [id number]. Garima Pulliam MCHC (RBC) [Mass/Vol] 33.4 g/dL Normal 29.9-35.2 [facility] Comment on above: Performed By: #### C BC ####[facility] Fakcpaoxpd8760 [place] [id number]. Garima Pulliam MCV (RBC) [Entitic vol] 91.2 fL Normal 80.0-94.0 [facility] Comment on above: Performed By: #### C BC ####[facility] Trmeuzwkoz[address] [place], [place] [address]DrAdalberto Garima Heraclio MONO # 0.8 103/ul Normal 0.3-0.8 [facility] Comment on above: Performed By: #### C BC ####[facility] Lvmoxgfnme22[address] [place], [place] [address]Dr. Garima Heraclio Monocytes/100 WBC (Bld) 7.6 % Normal 1.7-12.0 [facility] Comment on above: Performed By: #### C BC ####[facility] Kedkbmnmus[address] [place], [place] [address]Dr. Garima Pulliam NEUT # 7.0 103/ul Critically high 1.4-6.5 [facility] Comment on above: Performed By: #### C BC ####[facility] Xgnqylpfwj[address] [place], [place] [address]DrAdalberto Garima Heraclio Neutrophils/100 WBC (Bld) 71.2 % Normal 43.0-75.0 [facility] Comment on above: Performed By: #### C BC ####[facility] Remqvbwlrd[address] [place], [place] [address]Dr. Garmia Pulliam Platelet mean volume (Bld) [Entitic vol] 8.9 fL Critically low 9.5-13.5 [facility] Comment on above: Performed By: #### C BC ####[facility] Lelaokgcbz9998 [place] [id number]. Garima Pulliam PLT 217 103/ul Normal 150-450 [facility] Comment on above: Performed By: #### C BC ####[facility] Qznzrxvvtq64[address] [place], [place] [address]Dr. Garima Pulliam RBC 5.02 106/ul Normal 4.70-6.10 [facility] Comment on above: Performed By: #### C BC ####[facility] Aybcbakxwq6[address] [place], [place] [address]Dr. Garima Pulliam WBC 9.8 103/ul Normal 4.0-11.0 [facility] Comment on above: Performed By: #### C BC ####[facility] Vgjtkxytkl[address] [place], [place] [address]Dr. Garima Heraclio CRPon 03-18-2023 CRP 0.1 mg/dL Normal <=1.0 [facility] Comment on above: Performed By: #### C RP ####[facility] Bgbvgzphkf[address] [place], [place] [address]Dr. Garima Heraclio PROF CHEM 8 (BAS METB)on Anion gap [Moles/Vol] 10.4 mmol/L Normal [facility] Comment on above: Performed By: #### B SAW EDGE FUSER CIRCULAR, BMP ####[facility] Ioeosuonfu[address] [place], [place] [address]Dr. Garima Heraclio Calcium [Mass/Vol] 8.8 mg/dL Normal 8.5-10.1 [facility] Comment on above: Performed By: #### B SAW EDGE FUSER CIRCULAR, BMP ####[facility] Ognknyczdt9032 [place] [address]Dr. Garima Pulliam Chloride [Moles/Vol] 97 mmol/L Critically low 98-107 [facility] Comment on above: Performed By: #### B SAW EDGE FUSER CIRCULAR, BMP ####[facility] Plqukqbpts5054 [place] [address]Dr. Garima Pulliam CO2 [Moles/Vol] 31.2 mmol/L Normal 21.0-32.0 [facility] Comment on above: Performed By: #### B SAW EDGE FUSER CIRCULAR, BMP ####[facility] [facility] [address] [place] [id number]. Garima Pulliam Creatinine [Mass/Vol] 0.91 mg/dL Normal 0.70-1.30 [facility] Comment on above: Performed By: #### B SAW EDGE FUSER CIRCULAR, BMP ####[facility] Mgohkagxzi[address] [id number]. Garima Pulliam EGFR-AF MALTESE >60 Normal >=60 [facility] Comment on above: Performed By: #### B SAW EDGE FUSER CIRCULAR, BMP ####[facility] Awuifchbnc[address] [place] [id number]. Garima Pulliam EGFR-NON AF MALTESE >60 Normal >=60 [facility] Comment on above: Performed By: #### B SAW EDGE FUSER CIRCULAR, BMP ####[facility] Kekubrhqap[address] [place], [place] [id number]. Garima Pulliam Glucose [Mass/Vol] 315 mg/dL Critically high 74-106 T [facility] Comment on above: Performed By: #### B SAW EDGE FUSER CIRCULAR, BMP ####[facility] Yblwrgptnd[address] [place], [place] [id number]. Garima Pulliam Potassium [Moles/Vol] 3.6 mmol/L Normal 3.5-5.1 [facility] Comment on above: Performed By: #### B SAW EDGE FUSER CIRCULAR, BMP ####[facility] Urqxngxhif[address] [place], [place] [id number]. Garima Pulliam Sodium [Moles/Vol] 135 mmol/L Critically low 136-145 [facility] Comment on above: Performed By: #### B SAW EDGE FUSER CIRCULAR, BMP ####[facility] Bayafeltiv[address] [place], [place] [id number]. Garima Pulliam Urea nitrogen [Mass/Vol] 7.0 mg/dL Normal 7.0-18.0 [facility] Comment on above: Performed By: #### B SAW EDGE FUSER CIRCULAR, BMP ####[facility] Vfgnwudgmy[address] [place], [place] [id number]. Garima Pulliam Urea nitrogen/Creatinine [Mass ratio] 7.7 mg/mg Normal [facility] Comment on above: Performed By: #### B SAW EDGE FUSER CIRCULAR, BMP ####[facility] Rrnshnejqj[address] [place], [place] [address]Dr. Garima Pulliam SED RATE WESTERGRENon 2022 SED RATE 8 mm/hr Normal <=20 [facility] Comment on above: Performed By: #### S EDR ####[facility] Hzjkcyxxyv13[address] [place], [place] [address]Dr. Garima Pulliam BNPon 03-16-2023 Natriuretic peptide B (Bld) [Mass/Vol] 241.0 pg/mL Normal <=900.0 [facility] Comment on above: Performed By: #### B SAW EDGE FUSER CIRCULAR, BMP, HSTROPN ####[facility] Tdzkpkiese[address] [place], [place] [address]Dr. Garima Heraclio CBC AUTO DIFFon 03-16-2023 BASO # 0.0 103/ul Normal 0.0-0.1 [facility] Comment on above: Performed By: #### C BC ####[facility] Albhjxeylz[address] [place], [place] [address]Dr. Garima Heraclio Basophils/100 WBC (Bld) 0.2 % Normal 0.2-2.0 [facility] Comment on above: Performed By: #### C BC ####[facility] Iyflxpotcy8[address] [place], [place] [address]Dr. Chapisrenu Heraclio EO # 0.2 103/ul Normal 0.0-0.7 [facility] Comment on above: Performed By: #### C BC ####[facility] Tutvltryxd1712[address] [place], [place] [address]Dr. Garima Heraclio Eosinophils/100 WBC (Bld) 2.7 % Normal 0.9-7.0 [facility] Comment on above: Performed By: #### C BC ####[facility] Tdsnbdevbx97[address] [place], [place] [address]Dr. Garima Heraclio Erythrocyte distribution width (RBC) [Ratio] 13.1 % Normal 11.0-15.0 [facility] Comment on above: Performed By: #### C BC ####[facility] Yuglmptfbv9[address] [place], [place] [address]Dr. Garima Heraclio Hematocrit (Bld) [Volume fraction] 41.8 % Critically low 42.0-54.0 [facility] Comment on above: Performed By: #### C BC ####[facility] Ukmfsoyb[address] [place] [address]DrAdalberto Garima Pulliam Hemoglobin (Bld) [Mass/Vol] 14.0 g/dL Normal 14.0-18.0 [facility] Comment on above: Performed By: #### C BC ####[facility] Thkvyjuini[address] [place] [address]DrAdalberto Pulliam IG # 0.03 10e3/ul Normal 0.00-0.03 [facility] Comment on above: Performed By: #### C BC ####[facility] Xhegsfdzbx6[address] [place], [place] [address]DrAdalberto Chapisrenu Pulliam IG % 0.3 % Normal 0.0-0.5 [facility] Comment on above: Performed By: #### C BC ####[facility] Olpdnkkjvn11[address] [place], [place] [address]DrAdalberto Chapisrenu Pulliam LYMPH # 2.1 103/ul Normal 1.2-3.8 [facility] Comment on above: Performed By: #### C BC ####[facility] Vwxoszmjsk[address] [place], [place] [address]DrAdalberto Chapisrenu Pulliam Lymphocytes/100 WBC (Bld) 24.2 % Normal 20.5-60.0 [facility] Comment on above: Performed By: #### C BC ####[facility] Thhtrkbxta[address] [place], [place] [address]DrAdalberto Pulliam MANUAL DIFF REQ NO Normal [facility] Comment on above: Performed By: #### C BC ####[facility] Bqgomtrohw5614[address] [place], [place] [address]DrAdalberto Pulliam MCH (RBC) [Entitic mass] 30.2 pg Normal 25.9-34.0 [facility] Comment on above: Performed By: #### C BC ####[facility] Twnsuwkpmv34[address] [place], [place] [address]DrAdalberto Pulliam MCHC (RBC) [Mass/Vol] 33.5 g/dL Normal 29.9-35.2 [facility] Comment on above: Performed By: #### C BC ####[facility] Ymnmeqbjkf39[address] [place], [place] [address]DrAdalberto Pulliam MCV (RBC) [Entitic vol] 90.1 fL Normal 80.0-94.0 [facility] Comment on above: Performed By: #### C BC ####[facility] Chnzixytst9030[address] [place], [place] [address]DrAdalberto Pulliam MONO # 0.6 103/ul Normal 0.3-0.8 [facility] Comment on above: Performed By: #### C BC ####[facility] Tvdtfryhbz0724[address] [place], [place] [address]DrAdalberto Pulliam Monocytes/100 WBC (Bld) 7.4 % Normal 1.7-12.0 [facility] Comment on above: Performed By: #### C BC ####[facility] Ffuwuucmvr8759[address] [place], [place] [address]DrAdalberto Pulliam NEUT # 5.6 103/ul Normal 1.4-6.5 [facility] Comment on above: Performed By: #### C BC ####[facility] Busyqwbgpo[address] [place], [place] [address]DrAdalberto Pulliam Neutrophils/100 WBC (Bld) 65.2 % Normal 43.0-75.0 [facility] Comment on above: Performed By: #### C BC ####[facility] Fmholzreyf6539[address] [place], [place] [address]DrAdalberto Pulliam Platelet mean volume (Bld) [Entitic vol] 8.7 fL Critically low 9.5-13.5 [facility] Comment on above: Performed By: #### C BC ####[facility] Vbejkmpusw[address] [place], [place] [address]DrAdalberto Pulliam PLT 195 103/ul Normal 150-450 [facility] Comment on above: Performed By: #### C BC ####[facility] Tjhjxvwqlu50[address] [place], [place] [address]DrAdalberto Pulliam RBC 4.64 106/ul Critically low 4.70-6.10 [facility] Comment on above: Performed By: #### C BC ####[facility] Cwclbyfzes7425[address] [place], [place] [address]Dr. Chapisrenu Pulliam WBC 8.6 103/ul Normal 4.0-11.0 [facility] Comment on above: Performed By: #### C BC ####[facility] Zewauukcro[address] [place], [place] [address]Dr. Garima Pulliam PROF CHEM 8 (BAS METB)on Anion gap [Moles/Vol] 6.7 mmol/L Normal [facility] Comment on above: Performed By: #### B SAW EDGE FUSER CIRCULAR, BMP, HSTROPN ####[facility] Lbjekeehrg74[address] [place], [place] [address]Dr. Garima Pulliam Calcium [Mass/Vol] 8.8 mg/dL Normal 8.5-10.1 [facility] Comment on above: Performed By: #### B SAW EDGE FUSER CIRCULAR, BMP, HSTROPN ####[facility] Ttfaagqwzf[address] [place], [place] [address]Dr. Garima Pulliam Chloride [Moles/Vol] 106 mmol/L Normal 98-107 [facility] Comment on above: Performed By: #### B SAW EDGE FUSER CIRCULAR, BMP, HSTROPN ####[facility] Mhikiwkbcp646[address] [place], [place] [address]Dr. Garima Pulliam CO2 [Moles/Vol] 31.4 mmol/L Normal 21.0-32.0 [facility] Comment on above: Performed By: #### B SAW EDGE FUSER CIRCULAR, BMP, HSTROPN ####[facility] Rogmpeblhh[address] [place], [place] [address]Dr. Garima Pulliam Creatinine [Mass/Vol] 0.75 mg/dL Normal 0.70-1.30 [facility] Comment on above: Performed By: #### B SAW EDGE FUSER CIRCULAR, BMP, HSTROPN ####[facility] Biwirqvutn99[address] [place], [place] [address]Dr. Garima Pulliam EGFR-AF MALTESE >60 Normal >=60 [facility] Comment on above: Performed By: #### B SAW EDGE FUSER CIRCULAR, BMP, HSTROPN ####[facility] [address]ax[address] [place] [address]Dr. Garima Pulliam EGFR-NON AF MALTESE >60 Normal >=60 [facility] Comment on above: Performed By: #### B SAW EDGE FUSER CIRCULAR, BMP, HSTROPN ####[facility] Wyjdciwaut[address] [place] [address]Dr. Garima Pulliam Glucose [Mass/Vol] 161 mg/dL Critically high 74-106 T [facility] Comment on above: Performed By: #### B SAW EDGE FUSER CIRCULAR, BMP, HSTROPN ####[facility] Oggglzbelv[address] [place] [address]Dr. Garima Pulliam Potassium [Moles/Vol] 4.1 mmol/L Normal 3.5-5.1 [facility] Comment on above: Performed By: #### B SAW EDGE FUSER CIRCULAR, BMP, HSTROPN ####[facility] [address]jbnsa[address] [place] [address]Dr. Garima Pulliam Sodium [Moles/Vol] 140 mmol/L Normal 136-145 [facility] Comment on above: Performed By: #### B SAW EDGE FUSER CIRCULAR, BMP, HSTROPN ####[facility] Enxl[address]zfrc[address] [place] [address]Dr. Garima Pulliam Urea nitrogen [Mass/Vol] 7.0 mg/dL Normal 7.0-18.0 [facility] Comment on above: Performed By: #### B SAW EDGE FUSER CIRCULAR, BMP, HSTROPN ####[facility] Kyauxmsxwl[address] [place] [address]Dr. Garima Pulliam Urea nitrogen/Creatinine [Mass ratio] 9.3 mg/mg Normal [facility] Comment on above: Performed By: #### B SAW EDGE FUSER CIRCULAR, BMP, HSTROPN ####[facility] Pkvclzerql[address] [place], [place] [address]Dr. Garima Pulliam TROPONIN, HIGH SENSITIVITYon 03-16-2023 HSTROP 9.7 pg/mL Normal 4.0-76.1 [facility] Comment on above: Result Comment: CUT- OFF POINTS HAVE BEEN ESTABLISHED BASED ON THE FOURTH UNIVERSAL DEFINITIONS OF MYOCARDIALINFARCTION. THE UPPER REFERENCE LIMIT (URL) OF TROPONIN, DEFINED THE 99TH PERCENTILE OFcTnI DISTRIBUTION IN A REFERENCE POPULATION, HAS BEEN CONFIRMED THE DECISION THRESHOLDFOR NE DIAGNOSIS. Performed By: #### B SAW EDGE FUSER CIRCULAR, BMP, HSTROPN ####[facility] [address]ps[address] [place] [address]Dr. Garima Pulliam XR CHEST 1 Von 03-16-2023 XR CHEST 1 V Normal [facility] BNPon 03-06-2023 Natriuretic peptide B (Bld) [Mass/Vol] 111.0 pg/mL Normal <=900.0 [facility] Comment on above: Performed By: #### C MP, BNP, CK ####[facility] Ehayixoyqh[address] [place], [place] [address]Dr. Garima Pulliam CBC AUTO DIFFon 03-06-2023 BASO # 0.0 103/ul Normal 0.0-0.1 [facility] Comment on above: Performed By: #### C BC ####[facility] Fxhthrfmhz[address] [place], [place] [address]Dr. Garima Heraclio Basophils/100 WBC (Bld) 0.2 % Normal 0.2-2.0 [facility] Comment on above: Performed By: #### C BC ####[facility] Yqkovwxljb[address] [place], [place] [address]Dr. Garima Pulliam EO # 0.3 103/ul Normal 0.0-0.7 [facility] Comment on above: Performed By: #### C BC ####[facility] Yziktrcsuv[address] [place], [place] [address]Dr. Garima Heraclio Eosinophils/100 WBC (Bld) 3.5 % Normal 0.9-7.0 [facility] Comment on above: Performed By: #### C BC ####[facility] Iesizozcnm[address] [place], [place] [address]Dr. Garima Pulliam Erythrocyte distribution width (RBC) [Ratio] 13.3 % Normal 11.0-15.0 [facility] Comment on above: Performed By: #### C BC ####[facility] Phpwyqzdze67[address] [place], [place] [address]Dr. Garima Pulliam Hematocrit (Bld) [Volume fraction] 43.7 % Normal 42.0-54.0 [facility] Comment on above: Performed By: #### C BC ####[facility] [address]tlsx[address] [place] [address]Dr. Garima Pulliam Hemoglobin (Bld) [Mass/Vol] 14.7 g/dL Normal 14.0-18.0 [facility] Comment on above: Performed By: #### C BC ####[facility] G[address]oydxth[address] [place] [address]Dr. Garima Pulliam IG # 0.03 10e3/ul Normal 0.00-0.03 [facility] Comment on above: Performed By: #### C BC ####[facility] Alywxgpyby45[address] [place] [address]Dr. Garima Pulliam IG % 0.4 % Normal 0.0-0.5 [facility] Comment on above: Performed By: #### C BC ####[facility] Shsnwdhuyi[address] [place], [place] [address]Dr. Garima Pulliam LYMPH # 2.0 103/ul Normal 1.2-3.8 [facility] Comment on above: Performed By: #### C BC ####[facility] Sxbzajtygr10[address] [place], [place] [address]Dr. Garima Pulliam Lymphocytes/100 WBC (Bld) 23.7 % Normal 20.5-60.0 [facility] Comment on above: Performed By: #### C BC ####[facility] Hgquamfbth[address] [place], [place] [address]Dr. Garima Pulliam MANUAL DIFF REQ NO Normal [facility] Comment on above: Performed By: #### C BC ####[facility] Ahjuvrnggh[address] [place] [address]Dr. Garima Pulliam MCH (RBC) [Entitic mass] 30.1 pg Normal 25.9-34.0 [facility] Comment on above: Performed By: #### C BC ####[facility] Zruzliawie23[address] [place], [place] [address]Dr. Garima Pulliam MCHC (RBC) [Mass/Vol] 33.6 g/dL Normal 29.9-35.2 [facility] Comment on above: Performed By: #### C BC ####[facility] Euvwpfxzim[address] [place] [address]DrAdalberto Pulliam MCV (RBC) [Entitic vol] 89.4 fL Normal 80.0-94.0 [facility] Comment on above: Performed By: #### C BC ####[facility] Odoqyembxx[address] [place], [place] [address]DrAdalberto Pulliam MONO # 0.8 103/ul Normal 0.3-0.8 [facility] Comment on above: Performed By: #### C BC ####[facility] Jnuglfrxqk[address] [place], [place] [address]DrAdalberto Pulliam Monocytes/100 WBC (Bld) 9.0 % Normal 1.7-12.0 [facility] Comment on above: Performed By: #### C BC ####[facility] Lqgwlmiuhf[address] [place], [place] [address]Dr. Garima Pulliam NEUT # 5.4 103/ul Normal 1.4-6.5 [facility] Comment on above: Performed By: #### C BC ####[facility] Epiwrqnfbj29[address] [place], [place] [address]DrAdalberto Pulliam Neutrophils/100 WBC (Bld) 63.2 % Normal 43.0-75.0 [facility] Comment on above: Performed By: #### C BC ####[facility] Hjjwgldwxp99[address] [place], [place] [address]DrAdalberto Pulliam Platelet mean volume (Bld) [Entitic vol] 9.0 fL Critically low 9.5-13.5 [facility] Comment on above: Performed By: #### C BC ####[facility] Vnodddjjtv[address] [place], [place] [address]DrAdalberto Pulliam PLT 218 103/ul Normal 150-450 [facility] Comment on above: Performed By: #### C BC ####[facility] Wgtuqbmtpf[address] [place], [place] [address]DrAdalberto Pulliam RBC 4.89 106/ul Normal 4.70-6.10 [facility] Comment on above: Performed By: #### C BC ####[facility] Awfzusiwve[address] [place] [address]Dr. Garima Pulliam WBC 8.5 103/ul Normal 4.0-11.0 [facility] Comment on above: Performed By: #### C BC ####[facility] Obhpivngkw[address] [place] [address]Dr. Garima Heraclio CPKon 03-06-2023 CK [Catalytic activity/Vol] 191 U/L Normal 39-308 [facility] Comment on above: Performed By: #### C MP, BNP, CK ####[facility] Ibbovcjznv[address] [place], [place] [address]Dr. Garima Pulliam PROF 14(COMP METB)on 023 Albumin [Mass/Vol] 3.6 g/dL Normal 3.4-5.0 [facility] Comment on above: Performed By: #### C MP, BNP, CK ####[facility] Qogtvuumgb[address] [place] [address]Dr. Garima Pulliam Albumin/Globulin [Mass ratio] 1.2 {ratio} Normal [facility] Comment on above: Performed By: #### C MP, BNP, CK ####[facility] J[address]zifxyqox[address] [place] [address]Dr. Garima Pulliam ALP [Catalytic activity/Vol] 91 U/L Normal 46-116 [facility] Comment on above: Performed By: #### C MP, BNP, CK ####[facility] Ibodbudwvt39[address] [place] [address]Dr. Garima Pulliam ALT [Catalytic activity/Vol] 33 U/L Normal 16-63 [facility] Comment on above: Performed By: #### C MP, BNP, CK ####[facility] Klpwrkqaqm[address] [place] [address]Dr. Garima Pulliam Anion gap [Moles/Vol] 10.3 mmol/L Normal [facility] Comment on above: Performed By: #### C MP, BNP, CK ####[facility] Mdkahihsix[address] [place] [address]Dr. Garima Pulliam AST [Catalytic activity/Vol] 17 U/L Normal 15-37 [facility] Comment on above: Performed By: #### C MP, BNP, CK ####[facility] F[address]ujvzyrz[address] [place] [address]Dr. Garima Pulliam Bilirubin [Mass/Vol] 0.4 mg/dL Normal 0.2-1.0 [facility] Comment on above: Performed By: #### C MP, BNP, CK ####[facility] Qrgrifgaae[address] [place] [address]Dr. Garima Pulliam Calcium [Mass/Vol] 9.1 mg/dL Normal 8.5-10.1 [facility] Comment on above: Performed By: #### C MP, BNP, CK ####[facility] Rwhphaqdyn[address] [place], [place] [address]Dr. Garima Pulliam Chloride [Moles/Vol] 102 mmol/L Normal 98-107 [facility] Comment on above: Performed By: #### C MP, BNP, CK ####[facility] Gtihlxkviu4[address] [place] [address]Dr. Garima Pulliam CO2 [Moles/Vol] 29.7 mmol/L Normal 21.0-32.0 [facility] Comment on above: Performed By: #### C MP, BNP, CK ####[facility] Bhuygzufyg[address] [place] [address]Dr. Garima Pulliam Creatinine [Mass/Vol] 0.79 mg/dL Normal 0.70-1.30 [facility] Comment on above: Performed By: #### C MP, BNP, CK ####[facility] Ywvjncsmir[address] [place] [address]Dr. Garima Pulliam EGFR-AF MALTESE >60 Normal >=60 [facility] Comment on above: Performed By: #### C MP, BNP, CK ####[facility] Kdtgnvdroc[address] [place] [address]Dr. Garima Pulliam EGFR-NON AF MALTESE >60 Normal >=60 [facility] Comment on above: Performed By: #### C MP, BNP, CK ####[facility] Cayeihywwe[address] [place] [address]Dr. Garima Pulliam Globulin (S) [Mass/Vol] 3.0 g/dL Normal [facility] Comment on above: Performed By: #### C MP, BNP, CK ####[facility] Xbzqtsbzch034[address] [place] [address]Dr. Garima Pulliam Glucose [Mass/Vol] 202 mg/dL Critically high 74-106 T [facility] Comment on above: Performed By: #### C MP, BNP, CK ####[facility] Ktxtnkcqzf8[address] [place], [place] [address]Dr. Garima Pulliam Potassium [Moles/Vol] 4.0 mmol/L Normal 3.5-5.1 [facility] Comment on above: Performed By: #### C MP, BNP, CK ####[facility] Zdnwygwaho[address] [place], [place] [address]Dr. Garima Pulliam Protein [Mass/Vol] 6.6 g/dL Normal 6.4-8.2 [facility] Comment on above: Performed By: #### C MP, BNP, CK ####[facility] Xuzzbboezq[address] [place], [place] [address]Dr. Garima Pulliam Sodium [Moles/Vol] 138 mmol/L Normal 136-145 [facility] Comment on above: Performed By: #### C MP, BNP, CK ####[facility] Djrwcajhax8[address] [place], [place] [address]Dr. Garima Pulliam Urea nitrogen [Mass/Vol] 10.0 mg/dL Normal 7.0-18.0 [facility] Comment on above: Performed By: #### C MP, BNP, CK ####[facility] Xyzgffwlhu[address] [place], [place] [address]Dr. Garima Pulliam Urea nitrogen/Creatinine [Mass ratio] 12.7 mg/mg Normal [facility] Comment on above: Performed By: #### C MP, BNP, CK ####[facility] Jqvljmnypl[address] [place], [place] [address]DrAdalberto Pulliam US VERONICA DOP LEG BILon 023 US VERONICA DOP LEG BENOIT Normal [facility] CBC AUTO DIFFon 01-13-2023 BASO # 0.0 103/ul Normal 0.0-0.1 [facility] Comment on above: Performed By: #### C BC ####[facility] Myfurrsdsp48[address] [place] [address]DrAdalberto Pulliam Basophils/100 WBC (Bld) 0.0 % Critically low 0.2-2.0 [facility] Comment on above: Performed By: #### C BC ####[facility] Ayzlxvcxsy36[address] [place] [address]DrAdalberto Pulliam EO # 0.0 103/ul Normal 0.0-0.7 [facility] Comment on above: Performed By: #### C BC ####[facility] Bidxsixdbd8[address] [place] [address]DrAdalberto Pulliam Eosinophils/100 WBC (Bld) 0.0 % Critically low 0.9-7.0 [facility] Comment on above: Performed By: #### C BC ####[facility] Lodgnxqgfc98[address] [place] [address]DrAdalberto Pulliam Erythrocyte distribution width (RBC) [Ratio] 13.2 % Normal 11.0-15.0 [facility] Comment on above: Performed By: #### C BC ####[facility] Fzsctbpoyu66[address] [place] [address]DrAdalberto Pulliam Hematocrit (Bld) [Volume fraction] 46.7 % Normal 42.0-54.0 [facility] Comment on above: Performed By: #### C BC ####[facility] Mmegqeeyoo7[address] [place] [address]DrAdalberto Pulliam Hemoglobin (Bld) [Mass/Vol] 15.6 g/dL Normal 14.0-18.0 [facility] Comment on above: Performed By: #### C BC ####[facility] Kdpqgubblu[address] [place] [address]DrAdalberto Pulliam IG # 0.01 10e3/ul Normal 0.00-0.03 [facility] Comment on above: Performed By: #### C BC ####[facility] [address] [place] [address]DrAdalberto Chapisrenu Pulliam IG % 0.2 % Normal 0.0-0.5 [facility] Comment on above: Performed By: #### C BC ####[facility] Xfmmmujcxl3247 [place] [id number] Chapisrenu Pulliam LYMPH # 0.8 103/ul Critically low 1.2-3.8 [facility] Comment on above: Performed By: #### C BC ####[facility] Fzwmnoeicw6142 [place] [address]DrAdalberto Pulliam Lymphocytes/100 WBC (Bld) 12.7 % Critically low 20.5-60.0 [facility] Comment on above: Performed By: #### C BC ####[facility] Rhbwsxmzir5[address] [place] [address]DrAdalberto Pulliam MANUAL DIFF REQ NO Normal [facility] Comment on above: Performed By: #### C BC ####[facility] Vahtcucrvv0639 [place] [phone] Garima Heraclio MCH (RBC) [Entitic mass] 30.2 pg Normal 25.9-34.0 [facility] Comment on above: Performed By: #### C BC ####[facility] Zwzntzbewj6261 [place] [address]DrAdalberto Chapisrenu Pulliam MCHC (RBC) [Mass/Vol] 33.4 g/dL Normal 29.9-35.2 [facility] Comment on above: Performed By: #### C BC ####[facility] Dscutsoxoh0143 [place] [id number] Pulliam MCV (RBC) [Entitic vol] 90.3 fL Normal 80.0-94.0 [facility] Comment on above: Performed By: #### C BC ####[facility] Gbygorsyaq3605 [place] [id number] Pulliam MONO # 0.1 103/ul Critically low 0.3-0.8 [facility] Comment on above: Performed By: #### C BC ####[facility] Jwoobqcdyh3384 [place] [address]Dr. Garima Pulliam Monocytes/100 WBC (Bld) 0.9 % Critically low 1.7-12.0 [facility] Comment on above: Performed By: #### C BC ####[facility] Yhcbnkqdhg6409 [place] [address]Dr. Garima Pulliam NEUT # 5.6 103/ul Normal 1.4-6.5 [facility] Comment on above: Performed By: #### C BC ####[facility] Cduykmpzkf5062 [place] [address]Dr. Garima Pulliam Neutrophils/100 WBC (Bld) 86.2 % Critically high 43.0-75.0 [facility] Comment on above: Performed By: #### C BC ####[facility] Jobsmaybny4790 [place] [address]Dr. Garima Pulliam Platelet mean volume (Bld) [Entitic vol] 9.1 fL Critically low 9.5-13.5 [facility] Comment on above: Performed By: #### C BC ####[facility] Torlrkquza[address] [place], [place] [address]Dr. Garima Pulliam PLT 169 103/ul Normal 150-450 [facility] Comment on above: Performed By: #### C BC ####[facility] Ydlilcsuyc9369 [place] [address]Dr. Garima Pulliam RBC 5.17 106/ul Normal 4.70-6.10 [facility] Comment on above: Performed By: #### C BC ####[facility] Acxouhrbjz0238 [place] [phone]. Garima Pulliam WBC 6.5 103/ul Normal 4.0-11.0 [facility] Comment on above: Performed By: #### C BC ####[facility] Ndlwwwgrgk[address] [place], [place] [address]Dr. Garima Pulliam D-DIMERon 01-13-2023 D-DIMER 0.41 mg/L FEU Normal <=0.59 [facility] Comment on above: Performed By: #### D DIM ####[facility] Msdmrkicev0201 [place] [address]Dr. Garima Pulliam D-DIMER COMMENTS SEE BELOW Normal [facility] Comment on above: Result Comment: Incr eases [...] generalized hospitalization. Performed By: #### D DIM ####[facility] Bhbgrffvqw3689 [place] [address]Dr. Garima Pulliam PROF 14(COMP METB)on 023 Albumin [Mass/Vol] 3.4 g/dL Normal 3.4-5.0 [facility] Comment on above: Performed By: #### C MP ####[facility] Pivjthsfvf7352 [place] [address]Dr. Garima Pulliam Albumin/Globulin [Mass ratio] 1.3 {ratio} Normal [facility] Comment on above: Performed By: #### C MP ####[facility] Eivzxzfppb8462 [place] [address]Dr. Garima Pulliam ALP [Catalytic activity/Vol] 83 U/L Normal 46-116 [facility] Comment on above: Performed By: #### C MP ####[facility] Cpfwewminf0313 [place] [address]Dr. Garima Pulliam ALT [Catalytic activity/Vol] 25 U/L Normal 16-63 [facility] Comment on above: Performed By: #### C MP ####[facility] Nkjgqhalkv2020 [place] [address]Dr. Garima Pulliam Anion gap [Moles/Vol] 14.5 mmol/L Normal [facility] Comment on above: Performed By: #### C MP ####[facility] Qngqkeplna5165 [place] [phone]. Garima Pulliam AST [Catalytic activity/Vol] 19 U/L Normal 15-37 [facility] Comment on above: Performed By: #### C MP ####[facility] Hyaixyannt6423 [place] [phone]. Garima Pulliam Bilirubin [Mass/Vol] 0.4 mg/dL Normal 0.2-1.0 [facility] Comment on above: Performed By: #### C MP ####[facility] Igcapzhxhb4287 [place] [phone]. Garima Pulliam Calcium [Mass/Vol] 8.7 mg/dL Normal 8.5-10.1 [facility] Comment on above: Performed By: #### C MP ####[facility] Uoyxbwnfjb0196 [place] [phone]. Garima Pulliam Chloride [Moles/Vol] 104 mmol/L Normal 98-107 [facility] Comment on above: Performed By: #### C MP ####[facility] Bsqciyphrr0962 [place] [phone]. Garima Pulliam CO2 [Moles/Vol] 24.5 mmol/L Normal 21.0-32.0 [facility] Comment on above: Performed By: #### C MP ####[facility] Sfnjpoqfpm7081 [place] [phone]. Garima Pulliam Creatinine [Mass/Vol] 0.70 mg/dL Normal 0.70-1.30 [facility] Comment on above: Performed By: #### C MP ####[facility] Qxozwlrwwi3541 [place] [phone]. Garima Pulliam EGFR-AF MALTESE >60 Normal >=60 [facility] Comment on above: Performed By: #### C MP ####[facility] Idqwlpwdes8595 [place] [phone]. Garima Pulliam EGFR-NON AF MALTESE >60 Normal >=60 [facility] Comment on above: Performed By: #### C MP ####[facility] Spuoinokhg[address] [place], [place] [id number]. Garima Pulliam Globulin (S) [Mass/Vol] 2.6 g/dL Normal [facility] Comment on above: Performed By: #### C MP ####[facility] Qvasvwjizl46[address] [place], [place] [address]Dr. Garima Pulliam Glucose [Mass/Vol] 196 mg/dL Critically high 74-106 [facility] Comment on above: Performed By: #### C MP ####[facility] Lenxqrzboc9[address] [place], [place] [address]Dr. Garima Pulliam Potassium [Moles/Vol] 4.0 mmol/L Normal 3.5-5.1 [facility] Comment on above: Performed By: #### C MP ####[facility] Djylhjqkqa03[address] [place], [place] [address]Dr. Garima Pulliam Protein [Mass/Vol] 6.0 g/dL Critically low 6.4-8.2 [facility] Comment on above: Performed By: #### C MP ####[facility] Fwzoysjjdq4[address] [place], [place] [address]Dr. Garima Pulliam Sodium [Moles/Vol] 139 mmol/L Normal 136-145 [facility] Comment on above: Performed By: #### C MP ####[facility] Tbipuovaga[address] [place], [place] [address]Dr. Garima Pulliam Urea nitrogen [Mass/Vol] 7.0 mg/dL Normal 7.0-18.0 [facility] Comment on above: Performed By: #### C MP ####[facility] Layguuuwxe8[address] [place], [place] [address]Dr. Garima Pulliam Urea nitrogen/Creatinine [Mass ratio] 10.0 mg/mg Normal [facility] Comment on above: Performed By: #### C MP ####[facility] Amrhvdnjla7[address] [place], [place] [address]Dr. Garima Pulliam BNPon 01-12-2023 Natriuretic peptide B (Bld) [Mass/Vol] 141.0 pg/mL Normal <=900.0 [facility] Comment on above: Performed By: #### C MP, BNP, HSTROPN ####[facility] Hhjfoizutt1531 [place] [phone]. Garima Heraclio CBC AUTO DIFFon 01-12-2023 BASO # 0.0 103/ul Normal 0.0-0.1 [facility] Comment on above: Performed By: #### C BC ####[facility] Hneyrprfri[address] [place], [place] [address]Dr. Garima Pulliam Basophils/100 WBC (Bld) 0.2 % Normal 0.2-2.0 [facility] Comment on above: Performed By: #### C BC ####[facility] Qhklvwwmra[address] [place], [place] [address]Dr. Garima Pulliam EO # 0.2 103/ul Normal 0.0-0.7 [facility] Comment on above: Performed By: #### C BC ####[facility] Wrnilpkpsh9377[address] [place], [place] [address]Dr. Garima Pulliam Eosinophils/100 WBC (Bld) 2.7 % Normal 0.9-7.0 [facility] Comment on above: Performed By: #### C BC ####[facility] Waigsobqdv14[address] [place], [place] [address]Dr. Chapisrenu Pulliam Erythrocyte distribution width (RBC) [Ratio] 13.3 % Normal 11.0-15.0 [facility] Comment on above: Performed By: #### C BC ####[facility] Fvupmclwpy4[address] [place], [place] [address]Dr. Garima Pulliam Hematocrit (Bld) [Volume fraction] 42.3 % Normal 42.0-54.0 [facility] Comment on above: Performed By: #### C BC ####[facility] Xyccobnwcu4524[address] [place], [place] [address]Dr. Chapisrenu Pulliam Hemoglobin (Bld) [Mass/Vol] 14.3 g/dL Normal 14.0-18.0 [facility] Comment on above: Performed By: #### C BC ####[facility] Fttiaiugzk[address] [place], [place] [address]Dr. Garima Pulliam IG # 0.02 10e3/ul Normal 0.00-0.03 [facility] Comment on above: Performed By: #### C BC ####[facility] Bmyyimzvjp3212 [place] [phone]. Chapisrenu Pulliam IG % 0.2 % Normal 0.0-0.5 [facility] Comment on above: Performed By: #### C BC ####[facility] Zinlljucwa1800 [place] [phone]. Garima Pulliam LYMPH # 2.6 103/ul Normal 1.2-3.8 [facility] Comment on above: Performed By: #### C BC ####[facility] Yuylyfczen8807 [place] [address]Dr. Chapisrenu Pulliam Lymphocytes/100 WBC (Bld) 29.6 % Normal 20.5-60.0 [facility] Comment on above: Performed By: #### C BC ####[facility] Dyrzwlyfct5273 [place] [address]Dr. Garima Pulliam MANUAL DIFF REQ NO Normal [facility] Comment on above: Performed By: #### C BC ####[facility] Gygqkimddp6778 [place] [address]Dr. Garima Pulliam MCH (RBC) [Entitic mass] 30.2 pg Normal 25.9-34.0 [facility] Comment on above: Performed By: #### C BC ####[facility] Facizpjntm4543 [place] [address]Dr. Garima Pulliam MCHC (RBC) [Mass/Vol] 33.8 g/dL Normal 29.9-35.2 [facility] Comment on above: Performed By: #### C BC ####[facility] Jgjbokgdag[address] [place], [place] [address]Dr. Garima Pulliam MCV (RBC) [Entitic vol] 89.2 fL Normal 80.0-94.0 [facility] Comment on above: Performed By: #### C BC ####[facility] Kqjauowmnx[address] [place], [place] [address]Dr. Garima Pulliam MONO # 0.7 103/ul Normal 0.3-0.8 [facility] Comment on above: Performed By: #### C BC ####[facility] Bjnqvwtdni6500 [place] [phone]. Garima Pulliam Monocytes/100 WBC (Bld) 8.3 % Normal 1.7-12.0 [facility] Comment on above: Performed By: #### C BC ####[facility] Yvdolcxcpo8847 [place] [phone]. Garima Pulliam NEUT # 5.1 103/ul Normal 1.4-6.5 [facility] Comment on above: Performed By: #### C BC ####[facility] Sbwepgvbly7580 [place] [phone]. Garima Pulliam Neutrophils/100 WBC (Bld) 59.0 % Normal 43.0-75.0 [facility] Comment on above: Performed By: #### C BC ####[facility] Mrjuopcwlv6608 [place] [address]Dr. Garima Pulliam Platelet mean volume (Bld) [Entitic vol] 8.7 fL Critically low 9.5-13.5 [facility] Comment on above: Performed By: #### C BC ####[facility] Dswuasefdy2955 [place] [phone]. Garima Pulliam PLT 182 103/ul Normal 150-450 [facility] Comment on above: Performed By: #### C BC ####[facility] Ahemrufuej5911 [place] [phone]. Garima Pulliam RBC 4.74 106/ul Normal 4.70-6.10 [facility] Comment on above: Performed By: #### C BC ####[facility] Aylnohhfpp3779 [place] [phone]. Garima Pulliam WBC 8.7 103/ul Normal 4.0-11.0 [facility] Comment on above: Performed By: #### C BC ####[facility] Kujtqotpsf8088 [place] [phone]. Garima Pulliam [facility]25 SARS-CoV-2 (COVID-19) RNA MARIE+probe Ql (Unsp spec) Not detected Normal NOT DETECTED [facility] Comment on above: Result Comment: [...] for this test is supported by the [employer] and [employer] Service's declaration that [...] be used). Performed By: #### C VDTB ####[facility] Slwderujvu1732 [place] [address]Dr. Garima Pulliam PROF 14(COMP METB)on 023 Albumin [Mass/Vol] 3.6 g/dL Normal 3.4-5.0 [facility] Comment on above: Performed By: #### C MP, BNP, HSTROPN ####[facility] Vbnjcvotsv3822 [place] [address]Dr. Garima Pulliam Albumin/Globulin [Mass ratio] 1.5 {ratio} Normal [facility] Comment on above: Performed By: #### C MP, BNP, HSTROPN ####[facility] Fnlktmmqgq2759 [place] [address]Dr. Garima Pulliam ALP [Catalytic activity/Vol] 79 U/L Normal 46-116 [facility] Comment on above: Performed By: #### C MP, BNP, HSTROPN ####[facility] Rqhygdhzhl1789 [place] [address]Dr. Garima Pulliam ALT [Catalytic activity/Vol] 27 U/L Normal 16-63 [facility] Comment on above: Performed By: #### C MP, BNP, HSTROPN ####[facility] Qbmhgcjsdc2718 [place] [address]Dr. Garima Pulliam Anion gap [Moles/Vol] 11.7 mmol/L Normal [facility] Comment on above: Performed By: #### C MP, BNP, HSTROPN ####[facility] Mjrjlvgkcr0512 [place] [address]Dr. Garima Pulliam AST [Catalytic activity/Vol] 21 U/L Normal 15-37 [facility] Comment on above: Performed By: #### C MP, BNP, HSTROPN ####[facility] Gybzhscaif2064 [place] [address]Dr. Garima Pulliam Bilirubin [Mass/Vol] 0.3 mg/dL Normal 0.2-1.0 [facility] Comment on above: Performed By: #### C MP, BNP, HSTROPN ####[facility] Nvwtrkkikp[address] [place], [place] [address]Dr. Garima Pulliam Calcium [Mass/Vol] 8.9 mg/dL Normal 8.5-10.1 [facility] Comment on above: Performed By: #### C MP, BNP, HSTROPN ####[facility] Fiexsytpxk7[address] [place], [place] [address]Dr. Garima Pulliam Chloride [Moles/Vol] 107 mmol/L Normal 98-107 [facility] Comment on above: Performed By: #### C MP, BNP, HSTROPN ####[facility] Akhmfrhhbj[address] [place], [place] [address]Dr. Garima Pulliam CO2 [Moles/Vol] 26.0 mmol/L Normal 21.0-32.0 [facility] Comment on above: Performed By: #### C MP, BNP, HSTROPN ####[facility] Lyfnhgfbuu92[address] [place], [place] [address]Dr. Garima Pulliam Creatinine [Mass/Vol] 0.65 mg/dL Critically low 0.70-1.30 [facility] Comment on above: Performed By: #### C MP, BNP, HSTROPN ####[facility] Wuzkjuzaie78[address] [place] [address]Dr. Garima Pulliam EGFR-AF MALTESE >60 Normal >=60 [facility] Comment on above: Performed By: #### C MP, BNP, HSTROPN ####[facility] Vyecbmxruz8992 [place] [address]Dr. Garima Pulliam EGFR-NON AF MALTESE >60 Normal >=60 [facility] Comment on above: Performed By: #### C MP, BNP, HSTROPN ####[facility] Hmrpsnijvu14[address] [place], [place] [address]Dr. Garima Pulliam Globulin (S) [Mass/Vol] 2.4 g/dL Normal [facility] Comment on above: Performed By: #### C MP, BNP, HSTROPN ####[facility] Wyjsshpnty5[address] [place], [place] [address]Dr. Garima Pulliam Glucose [Mass/Vol] 85 mg/dL Normal 74-106 [facility] Comment on above: Performed By: #### C MP, BNP, HSTROPN ####[facility] Hhsribhzks[address] [place], [place] [address]Dr. Garima Pulliam Potassium [Moles/Vol] 3.7 mmol/L Normal 3.5-5.1 [facility] Comment on above: Performed By: #### C MP, BNP, HSTROPN ####[facility] Gjiukurfyn24[address] [place], [place] [address]Dr. Garima Pulliam Protein [Mass/Vol] 6.0 g/dL Critically low 6.4-8.2 [facility] Comment on above: Performed By: #### C MP, BNP, HSTROPN ####[facility] Aqqukcjdwg[address] [place], [place] [address]Dr. Garima Pulliam Sodium [Moles/Vol] 141 mmol/L Normal 136-145 [facility] Comment on above: Performed By: #### C MP, BNP, HSTROPN ####[facility] Gzjulyywwu[address] [place], [place] [address]Dr. Garima Pulliam Urea nitrogen [Mass/Vol] 5.0 mg/dL Critically low 7.0-18.0 [facility] Comment on above: Performed By: #### C MP, BNP, HSTROPN ####[facility] Hglrlrbdvq3008 [place] [address]Dr. Garima Pulliam Urea nitrogen/Creatinine [Mass ratio] 7.7 mg/mg Normal [facility] Comment on above: Performed By: #### C MP, BNP, HSTROPN ####[facility] Oalrhhzkfr43[address] [place], [place] [address]Dr. Garima Pulliam PROTIMEon 01-12-2023 INR Coag (PPP) [Relative time] 1.16 {INR} Normal [facility] Comment on above: Performed By: #### P TT, PT ####[facility] [address]tyx[address] [place] [address]. Garima Pulliam INR GUIDELINES SEE BELOW Normal [facility] Comment on above: Result Comment: WESLEY RED INR: 2.0 - 3.0 CONDITIONS NOT LISTED BELOW 2.5 - 3.5 FOR PROSTHETIC HEART VALVE REPLACEMENT 2.5 - 3.5 RECURRENT THROMBOSIS Performed By: #### P TT, PT ####[facility] Yfieplcmak[address] [place], [place] [address]Dr. Garima Pulliam PT Coag (PPP) [Time] 12.2 s Critically high 9.0-11.6 [facility] Comment on above: Performed By: #### P TT, PT ####[facility] Bupbljjvtk[address] [place], [place] [address]Dr. Garima Pulliam PTTon 01-12-2023 aPTT Coag (Bld) [Time] 29.1 s Normal 22.3-36.2 [facility] Comment on above: Performed By: #### P TT, PT ####[facility] Zqqjowdanj[address] [place], [place] [address]Dr. Garima Pulliam TROPONIN, HIGH SENSITIVITYon 01-12-2023 HSTROP 10.3 pg/mL Normal 4.0-76.1 [facility] Comment on above: Result Comment: CUT- OFF POINTS HAVE BEEN ESTABLISHED BASED ON THE FOURTH UNIVERSAL DEFINITIONS OF MYOCARDIALINFARCTION. THE UPPER REFERENCE LIMIT (URL) OF TROPONIN, DEFINED THE 99TH PERCENTILE OFcTnI DISTRIBUTION IN A REFERENCE POPULATION, HAS BEEN CONFIRMED THE DECISION THRESHOLDFOR NE DIAGNOSIS. Performed By: #### H STROPN ####[facility] Jhvubnlwzi25[address] [place] [address]Dr. Garima Pulliam HSTROP 9.2 pg/mL Normal 4.0-76.1 [facility] Comment on above: Result Comment: CUT- OFF POINTS HAVE BEEN ESTABLISHED BASED ON THE FOURTH UNIVERSAL DEFINITIONS OF MYOCARDIALINFARCTION. THE UPPER REFERENCE LIMIT (URL) OF TROPONIN, DEFINED THE 99TH PERCENTILE OFcTnI DISTRIBUTION IN A REFERENCE POPULATION, HAS BEEN CONFIRMED THE DECISION THRESHOLDFOR NE DIAGNOSIS. Performed By: #### C MP, BNP, HSTROPN ####[facility] Ynkckzjfmg5955 [place] [address]Dr. Garima Pulliam XR CHEST 1 Von 01-12-2023 XR CHEST 1 V Normal [facility] XR CHEST 1 Von 01-01-2023 XR CHEST 1 V Normal [facility] CARDIAC NASH 3-6on 3 CK [Catalytic activity/Vol] 196 U/L Normal 39-308 [facility] Comment on above: Performed By: #### C MREP ####[facility] Puaofejzxm5[address] [place] [address]Dr. Garima Pulliam CK.MB [Mass/Vol] 7.41 ng/mL Critically high <=3.60 [facility] Comment on above: Performed By: #### C MREP ####[facility] Vbyacbrqwf7020 [place] [address]Dr. Garima Pulliam HSTROP 10.3 pg/mL Normal 4.0-76.1 [facility] Comment on above: Result Comment: CUT- OFF POINTS HAVE BEEN ESTABLISHED BASED ON THE FOURTH UNIVERSAL DEFINITIONS OF MYOCARDIALINFARCTION. THE UPPER REFERENCE LIMIT (URL) OF TROPONIN, DEFINED THE 99TH PERCENTILE OFcTnI DISTRIBUTION IN A REFERENCE POPULATION, HAS BEEN CONFIRMED THE DECISION THRESHOLDFOR NE DIAGNOSIS. Performed By: #### C MREP ####[facility] Moiuyhtkja04[address] [place] [address]Dr. Garima Pulliam XR CHEST 1 Von 12-26-2022 XR CHEST 1 V Normal [facility] BNPon 12-25-2022 Natriuretic peptide B (Bld) [Mass/Vol] 98.0 pg/mL Normal <=900.0 [facility] Comment on above: Performed By: #### B SAW EDGE FUSER CIRCULAR, BMP, CMADM ####[facility] Dadymshycg7118 [place] [id number]. Garima Pulliam CARDIAC NASH ADMITon 023 CK [Catalytic activity/Vol] 208 U/L Normal 39-308 [facility] Comment on above: Performed By: #### B SAW EDGE FUSER CIRCULAR, BMP, CMADM ####[facility] Sdspqxfhyv5436 [place] [address]Dr. Garima Pulliam CK.MB [Mass/Vol] 7.63 ng/mL Critically high <=3.60 [facility] Comment on above: Performed By: #### B SAW EDGE FUSER CIRCULAR, BMP, CMADM ####[facility] Hcwajjmrcv3516 [place] [address]Dr. Garima Pulliam HSTROP 8.8 pg/mL Normal 4.0-76.1 [facility] Comment on above: Result Comment: CUT- OFF POINTS HAVE BEEN ESTABLISHED BASED ON THE FOURTH UNIVERSAL DEFINITIONS OF MYOCARDIALINFARCTION. THE UPPER REFERENCE LIMIT (URL) OF TROPONIN, DEFINED THE 99TH PERCENTILE OFcTnI DISTRIBUTION IN A REFERENCE POPULATION, HAS BEEN CONFIRMED THE DECISION THRESHOLDFOR NE DIAGNOSIS. Performed By: #### B SAW EDGE FUSER CIRCULAR, BMP, CMADM ####[facility] Qbptkfzpbu[address] [place] [address]Dr. Garima Pulliam DORIS 83 ng/mL Normal 16-96 [facility] Comment on above: Performed By: #### B SAW EDGE FUSER CIRCULAR, BMP, CMADM ####[facility] Qkyfiddilk3057 [place] [id number]. Garima Pulliam CBC AUTO DIFFon 12-25-2022 BASO # 0.0 103/ul Normal 0.0-0.1 [facility] Comment on above: Performed By: #### C BC ####[facility] Xomsevmkak2724 [place] [address]Dr. Garima Pulliam Basophils/100 WBC (Bld) 0.0 % Critically low 0.2-2.0 [facility] Comment on above: Performed By: #### C BC ####[facility] Wplthkrkwp[address] [place], [place] [address]Dr. Garima Pulliam EO # 0.0 103/ul Normal 0.0-0.7 [facility] Comment on above: Performed By: #### C BC ####[facility] Vrfrxdcakq47[address] [place], [place] [address]Dr. Garima Pulliam Eosinophils/100 WBC (Bld) 0.7 % Critically low 0.9-7.0 [facility] Comment on above: Performed By: #### C BC ####[facility] Cseekhouis7[address] [place], [place] [address]Dr. Garima Pulliam Erythrocyte distribution width (RBC) [Ratio] 13.4 % Normal 11.0-15.0 [facility] Comment on above: Performed By: #### C BC ####[facility] Omztlgzlrg252[address] [place], [place] [address]Dr. Garima Pulliam Hematocrit (Bld) [Volume fraction] 42.9 % Normal 42.0-54.0 [facility] Comment on above: Performed By: #### C BC ####[facility] Bsskfidpra3[address] [place], [place] [address]Dr. Chapisrenu Pulliam Hemoglobin (Bld) [Mass/Vol] 14.4 g/dL Normal 14.0-18.0 [facility] Comment on above: Performed By: #### C BC ####[facility] Plwwqtzqnu5[address] [place], [place] [address]Dr. Garima Pulliam IG # 0.00 10e3/ul Normal 0.00-0.03 [facility] Comment on above: Performed By: #### C BC ####[facility] Usvtpmccsw85[address] [place], [place] [address]Dr. Garima Pulliam IG % 0.0 % Normal 0.0-0.5 [facility] Comment on above: Performed By: #### C BC ####[facility] Vybeisgcqc865[address] [place], [place] [address]Dr. Garima Pulliam LYMPH # 2.4 103/ul Normal 1.2-3.8 [facility] Comment on above: Performed By: #### C BC ####[facility] Mzxjnuheoy2415 [place] [address]Dr. Garima Pulliam Lymphocytes/100 WBC (Bld) 29.2 % Normal 20.5-60.0 [facility] Comment on above: Performed By: #### C BC ####[facility] Hpcgzayxkx9156 [place] [address]DrAdalberto Pulliam MANUAL DIFF REQ NO Normal [facility] Comment on above: Performed By: #### C BC ####[facility] Etzjjxrlca4207 [place] [address]Dr. Garima Pulliam MCH (RBC) [Entitic mass] 30.7 pg Normal 25.9-34.0 [facility] Comment on above: Performed By: #### C BC ####[facility] Nmrqxzvcsa27[address] [place], [place] [address]Dr. Garima Pulliam MCHC (RBC) [Mass/Vol] 33.6 g/dL Normal 29.9-35.2 [facility] Comment on above: Performed By: #### C BC ####[facility] Tkagpjozwm64[address] [place], [place] [address]DrAdalberto Pulliam MCV (RBC) [Entitic vol] 91.5 fL Normal 80.0-94.0 [facility] Comment on above: Performed By: #### C BC ####[facility] Ltnykwymrs6770 [place] [address]Dr. Garima Pulliam MONO # 0.0 103/ul Critically low 0.3-0.8 [facility] Comment on above: Performed By: #### C BC ####[facility] Xorzbbtdor14[address] [place], [place] [address]DrAdalberto Pulliam Monocytes/100 WBC (Bld) 8.0 % Normal 1.7-12.0 [facility] Comment on above: Performed By: #### C BC ####[facility] Rnthcffdio69[address] [place], [place] [address]DrAdalberto Pulliam NEUT # 5.1 103/ul Normal 1.4-6.5 [facility] Comment on above: Performed By: #### C BC ####[facility] Dnmpgszqpm8742 [place] [id number]. Garima Pulliam Neutrophils/100 WBC (Bld) 62.8 % Normal 43.0-75.0 [facility] Comment on above: Performed By: #### C BC ####[facility] Pzqzawmjqc4409 [place] [id number]. Gairma Pulliam Platelet mean volume (Bld) [Entitic vol] 8.6 fL Critically low 9.5-13.5 [facility] Comment on above: Performed By: #### C BC ####[facility] Qrhvpedafc3900 [place] [id number]. Garima Pulliam PLT 200 103/ul Normal 150-450 [facility] Comment on above: Performed By: #### C BC ####[facility] Toyflxpndc3748 [place] [id number]. Garima Pulliam RBC 4.69 106/ul Critically low 4.70-6.10 [facility] Comment on above: Performed By: #### C BC ####[facility] Kvjshikbpb6623 [place] [id number]. Garima Pulliam WBC 8.2 103/ul Normal 4.0-11.0 [facility] Comment on above: Performed By: #### C BC ####[facility] Hgnasfwvcd3719 [place] [id number]. Garima Pulliam [facility]on SARS-CoV-2 (COVID-19) RNA MARIE+probe Ql (Unsp spec) Not detected Normal NOT DETECTED [facility] Comment on above: Result Comment: [...] for this test is supported by the [employer] and Human Service's declaration that [...] be used). Performed By: #### C VDTBH ####[facility] Qzqibvottj15[address] [place], [place] [address]Dr. Garima Pulliam INFLUENZA A AND B AGon 12-25 INFLUANE SEE BELOW Normal [facility] Comment on above: Result Comment: Nega tive for Flu A protein angiten. Infection due to Flu A cannot be ruled out. Flu A angiten in the sample may be below the detection limit of the test. Performed By: #### I NFLUAB ####[facility] Cdwp[address]ltdd[address] [place] [address]. Garima Pulliam INFLUBNEGH SEE BELOW Normal [facility] Comment on above: Result Comment: Nega tive for Flu B protein antigen. Infection due to Flu B cannot be ruled out. Flu B antigen in the sample may be below the detection limit of the test. Performed By: #### I NFLUAB ####[facility] Fqldievgan00[address] [place], [place] [address]Dr. renu Pulliam INFLUENZA A AG Negative Normal NEGATIVE SEE COMMENT [facility] Comment on above: Performed By: #### I NFLUAB ####[facility] Sznujpzxar022[address] [place], [place] [address]Dr. Garima Pulliam INFLUENZA B AG Negative Normal NEGATIVE SEE COMMENT [facility] Comment on above: Performed By: #### I NFLUAB ####[facility] Btcdecgw[address] [place] [address]. Garima Pulliam PROF CHEM 8 (BAS METB)on Anion gap [Moles/Vol] 11.1 mmol/L Normal [facility] Comment on above: Performed By: #### B SAW EDGE FUSER CIRCULAR, BMP, CMADM ####[facility] Xtegrksqgf2018 [place] [id number]. Garima Pulliam Calcium [Mass/Vol] 8.5 mg/dL Normal 8.5-10.1 [facility] Comment on above: Performed By: #### B SAW EDGE FUSER CIRCULAR, BMP, CMADM ####[facility] Ttoxvjjxlg7095 [place] [phone]. Garima Pulliam Chloride [Moles/Vol] 106 mmol/L Normal 98-107 [facility] Comment on above: Performed By: #### B SAW EDGE FUSER CIRCULAR, BMP, CMADM ####[facility] Loivpsijmi8238 [place] [address]Dr. Garima Pulliam CO2 [Moles/Vol] 27.4 mmol/L Normal 21.0-32.0 [facility] Comment on above: Performed By: #### B SAW EDGE FUSER CIRCULAR, BMP, CMADM ####[facility] Jzyssdumsk0551 [place] [address]Dr. Garima Pulliam Creatinine [Mass/Vol] 0.65 mg/dL Critically low 0.70-1.30 [facility] Comment on above: Performed By: #### B SAW EDGE FUSER CIRCULAR, BMP, CMADM ####[facility] Hltrvnwhao6988 [place] [address]Dr. Garima Pulliam EGFR-AF MALTESE >60 Normal >=60 [facility] Comment on above: Performed By: #### B SAW EDGE FUSER CIRCULAR, BMP, CMADM ####[facility] Fhftrtoucu7598 [place] [address]Dr. Garima Pulliam EGFR-NON AF MALTESE >60 Normal >=60 [facility] Comment on above: Performed By: #### B SAW EDGE FUSER CIRCULAR, BMP, CMADM ####[facility] Qlogwbddtr8750 [place] [address]Dr. Garima Pulliam Glucose [Mass/Vol] 140 mg/dL Critically high 74-106 [facility] Comment on above: Performed By: #### B SAW EDGE FUSER CIRCULAR, BMP, CMADM ####[facility] Smsogaaldf0638 [place] [address]Dr. Garima Pulliam Potassium [Moles/Vol] 3.5 mmol/L Normal 3.5-5.1 [facility] Comment on above: Performed By: #### B SAW EDGE FUSER CIRCULARMARVIN, NANCY ####[facility] Mfajiryuqp8690 [place] [address]Dr. Chapisrenu Pulliam Sodium [Moles/Vol] 141 mmol/L Normal 136-145 [facility] Comment on above: Performed By: #### B SAW EDGE FUSER CIRCULARMARVIN, CMAANA ROSA ####[facility] Zhrwdfdffk8581 [place] [address]Dr. Garima Pulliam Urea nitrogen [Mass/Vol] 8.0 mg/dL Normal 7.0-18.0 [facility] Comment on above: Performed By: #### B MARVIN FRENCH CMADM ####[facility] Vlctsnkhdj7146 [place] [address]Dr. Garima Pulliam Urea nitrogen/Creatinine [Mass ratio] 12.3 mg/mg Normal [facility] Comment on above: Performed By: #### B MARVIN FRENCH CMAANA ROSA ####[facility] Sxjvirqbfn9733 [place] [address]Dr. Garima Heraclio CARDIAC NASH ADMITon 023 CK [Catalytic activity/Vol] 165 U/L Normal 39-308 [facility] Comment on above: Performed By: #### B NANCY HERNANDEZ ####[facility] Tdgbuoanbj[address] [place], [place] [address]Dr. Garima Pulliam CK.MB [Mass/Vol] 6.48 ng/mL Critically high <=3.60 [facility] Comment on above: Performed By: #### B MP, CMADM ####[facility] Oeisxadbbv6[address] [place], [place] [address]Dr. Garima Heraclio HSTROP 11.7 pg/mL Normal 4.0-76.1 [facility] Comment on above: Result Comment: CUT- OFF POINTS HAVE BEEN ESTABLISHED BASED ON THE FOURTH UNIVERSAL DEFINITIONS OF MYOCARDIALINFARCTION. THE UPPER REFERENCE LIMIT (URL) OF TROPONIN, DEFINED THE 99TH PERCENTILE OFcTnI DISTRIBUTION IN A REFERENCE POPULATION, HAS BEEN CONFIRMED THE DECISION THRESHOLDFOR NE DIAGNOSIS. Performed By: #### B DAVID, CMADM ####[facility] Hibnplissu6032 [place] [phone]. Garima Pulliam DORIS 83 ng/mL Normal 16-96 [facility] Comment on above: Performed By: #### B MP, CMADM ####[facility] Tnmbqbsvuz7921 [place] [phone]. Garima Pulliam CBC AUTO DIFFon 12-10-2022 BASO # 0.0 103/ul Normal 0.0-0.1 [facility] Comment on above: Performed By: #### C BC ####[facility] Zgmlmfrugn9015 [place] [id number]. Garima Pulliam Basophils/100 WBC (Bld) 0.3 % Normal 0.2-2.0 [facility] Comment on above: Performed By: #### C BC ####[facility] Dttknchaeu1779 [place] [address]Dr. Garima Pulliam EO # 0.1 103/ul Normal 0.0-0.7 [facility] Comment on above: Performed By: #### C BC ####[facility] Qxucibqegr1345 [place] [id number]. Garima Pulliam Eosinophils/100 WBC (Bld) 0.4 % Critically low 0.9-7.0 [facility] Comment on above: Performed By: #### C BC ####[facility] Fgsxsyexqe7033 [place] [phone]. Garima Pulliam Erythrocyte distribution width (RBC) [Ratio] 13.2 % Normal 11.0-15.0 [facility] Comment on above: Performed By: #### C BC ####[facility] Mzslzrzefo[address] [place], [place] [id number]. Garima Pulliam Hematocrit (Bld) [Volume fraction] 42.4 % Normal 42.0-54.0 [facility] Comment on above: Performed By: #### C BC ####[facility] Dbaymbvhgf[address] [place], [place] [address]Dr. Garima Pulliam Hemoglobin (Bld) [Mass/Vol] 14.4 g/dL Normal 14.0-18.0 [facility] Comment on above: Performed By: #### C BC ####[facility] Dogpifvbdu9784 [place] [id number]. Garima Pulliam IG # 0.05 10e3/ul Critically high 0.00-0.03 [facility] Comment on above: Performed By: #### C BC ####[facility] Xayjqmkzdz7148 [place] [id number]. Garima Pulliam IG % 0.4 % Normal 0.0-0.5 [facility] Comment on above: Performed By: #### C BC ####[facility] Almziuqmmk1879 [place] [address]Dr. Garima Pulliam LYMPH # 0.8 103/ul Critically low 1.2-3.8 [facility] Comment on above: Performed By: #### C BC ####[facility] Nfwjhxebvk2569 [place] [address]Dr. Garima Pulliam Lymphocytes/100 WBC (Bld) 6.5 % Critically low 20.5-60.0 [facility] Comment on above: Performed By: #### C BC ####[facility] Gxvaubbkxn2409 [place] [address]Dr. Garima Pulliam MANUAL DIFF REQ NO Normal [facility] Comment on above: Performed By: #### C BC ####[facility] Vrahhgnfom4092 [place] [address]Dr. Garima Pulliam MCH (RBC) [Entitic mass] 30.5 pg Normal 25.9-34.0 [facility] Comment on above: Performed By: #### C BC ####[facility] Eoyiwlqetp[address] [place], [place] [address]Dr. Garima Pulliam MCHC (RBC) [Mass/Vol] 34.0 g/dL Normal 29.9-35.2 [facility] Comment on above: Performed By: #### C BC ####[facility] Umjhclqbpj[address] [place], [place] [address]Dr. Garima Pulliam MCV (RBC) [Entitic vol] 89.8 fL Normal 80.0-94.0 [facility] Comment on above: Performed By: #### C BC ####[facility] Dtjfzvwhnt8117 [place] [phone]. Garima Pulliam MONO # 0.2 103/ul Critically low 0.3-0.8 [facility] Comment on above: Performed By: #### C BC ####[facility] Bandgeigti6833 [place] [phone]. Garima Pulliam Monocytes/100 WBC (Bld) 2.0 % Normal 1.7-12.0 [facility] Comment on above: Performed By: #### C BC ####[facility] Sgzdpxzuvy0161 [place] [phone]. Garima Pulliam NEUT # 10.5 103/ul Critically high 1.4-6.5 [facility] Comment on above: Performed By: #### C BC ####[facility] Tgnlaqffgz5519 [place] [phone]. Garima Pulliam Neutrophils/100 WBC (Bld) 90.4 % Critically high 43.0-75.0 [facility] Comment on above: Performed By: #### C BC ####[facility] Ikeicjreke2328 [place] [phone]. Garima Pulliam Platelet mean volume (Bld) [Entitic vol] 9.4 fL Critically low 9.5-13.5 [facility] Comment on above: Performed By: #### C BC ####[facility] Hiyeiqdtth9048 [place] [phone]. Garima Pulliam PLT 198 103/ul Normal 150-450 [facility] Comment on above: Performed By: #### C BC ####[facility] Vkeelpfrjf5567 [place] [phone]. Garima Pulliam RBC 4.72 106/ul Normal 4.70-6.10 [facility] Comment on above: Performed By: #### C BC ####[facility] Iitgawioem5445 [place] [id number]. Garima Pulliam WBC 11.6 103/ul Critically high 4.0-11.0 [facility] Comment on above: Performed By: #### C BC ####[facility] Uqazsbihvp1894 [place] [address]Dr. Garima Pulliam PROF CHEM 8 (BAS METB)on Anion gap [Moles/Vol] 11.3 mmol/L Normal [facility] Comment on above: Performed By: #### B DAVID, CMADM ####[facility] Tuspqbocyx9643 [place] [address]Dr. Garima Pulliam Calcium [Mass/Vol] 8.9 mg/dL Normal 8.5-10.1 [facility] Comment on above: Performed By: #### B DAVID, NANCY ####[facility] Lnvxdcojfw7809 [place] [address]Dr. Garima Pulliam Chloride [Moles/Vol] 103 mmol/L Normal 98-107 [facility] Comment on above: Performed By: #### B DAVID, CMADM ####[facility] Yssqdexjsv35[address] [place], [place] [address]Dr. Garima Pulliam CO2 [Moles/Vol] 28.2 mmol/L Normal 21.0-32.0 [facility] Comment on above: Performed By: #### Trae HERNANDEZ, NANCY ####[facility] Aopinpddno6586 [place] [address]Dr. Garima Pulliam Creatinine [Mass/Vol] 0.60 mg/dL Critically low 0.70-1.30 [facility] Comment on above: Performed By: #### Trae HERNANDEZ, CMAANA ROSA ####[facility] Foejlhewbm0561 [place] [address]Dr. Garima Pulliam EGFR-AF MALTESE >60 Normal >=60 [facility] Comment on above: Performed By: #### B DAVID, CMAANA ROSA ####[facility] Urgnwainsi3023 [place] [address]Dr. Garima Pulliam EGFR-NON AF MALTESE >60 Normal >=60 [facility] Comment on above: Performed By: #### B DAVID, CMADM ####[facility] Jydefvkcna0206 [place] [address]Dr. Garima Pulliam Glucose [Mass/Vol] 166 mg/dL Critically high 74-106 [facility] Comment on above: Performed By: #### B DAVID, CMADM ####[facility] Jruejyoady0525 [place] [address]Dr. Garima Pulliam Potassium [Moles/Vol] 3.5 mmol/L Normal 3.5-5.1 [facility] Comment on above: Performed By: #### B DAVID, CMADM ####[facility] Mcmwqjicrq48[address] [place], [place] [address]Dr. Garima Pulliam Sodium [Moles/Vol] 139 mmol/L Normal 136-145 [facility] Comment on above: Performed By: #### B DAVID, CMADM ####[facility] Vrjonkzzsv4934[address] [place], [place] [address]Dr. Chapisrenu Heraclio Urea nitrogen [Mass/Vol] 9.0 mg/dL Normal 7.0-18.0 [facility] Comment on above: Performed By: #### B DAVID, CMAANA ROSA ####[facility] Qvgizqywhn48[address] [place], [place] [address]Dr. Garima Pulliam Urea nitrogen/Creatinine [Mass ratio] 15.0 mg/mg Normal [facility] Comment on above: Performed By: #### B DAVID, CMAANA ROSA ####[facility] Bkyctqhdzj8560[address] [place], [place] [address]Dr. Garima Heraclio XR CHEST 1 Von 12-10-2022 XR CHEST 1 V Normal [facility] BNPon 11-27-2022 Natriuretic peptide B (Bld) [Mass/Vol] 95.0 pg/mL Normal <=900.0 [facility] Comment on above: Performed By: #### C MP, HSTROPN, BNP ####[facility] Urrvmrpaix74[address] [place], [place] [address]Dr. Garima Pulliam CBC AUTO DIFFon 11-27-2022 BASO # 0.0 103/ul Normal 0.0-0.1 [facility] Comment on above: Performed By: #### C BC ####[facility] Xyslixcbjc1207[address] [place], [place] [address]Dr. Garima Pulliam Basophils/100 WBC (Bld) 0.2 % Normal 0.2-2.0 [facility] Comment on above: Performed By: #### C BC ####[facility] Wycjoztefi2782 [place] [phone]. Garima Pulliam EO # 0.2 103/ul Normal 0.0-0.7 [facility] Comment on above: Performed By: #### C BC ####[facility] Gaaiqkexfm3949 [place] [phone]. Garima Pulliam Eosinophils/100 WBC (Bld) 2.0 % Normal 0.9-7.0 [facility] Comment on above: Performed By: #### C BC ####[facility] Caysubnfkr034[address] [place], [place] [address]Dr. Garima Pulliam Erythrocyte distribution width (RBC) [Ratio] 13.2 % Normal 11.0-15.0 [facility] Comment on above: Performed By: #### C BC ####[facility] Xvuumktrtb2146[address] [place], [place] [address]Dr. Garima Pulliam Hematocrit (Bld) [Volume fraction] 42.4 % Normal 42.0-54.0 [facility] Comment on above: Performed By: #### C BC ####[facility] Mtrrwpkftp1367[address] [place], [place] [address]Dr. Garima Pulliam Hemoglobin (Bld) [Mass/Vol] 14.4 g/dL Normal 14.0-18.0 [facility] Comment on above: Performed By: #### C BC ####[facility] Ljxirmbzcl9020[address] [place], [place] [address]Dr. Garima Pulliam IG # 0.04 10e3/ul Critically high 0.00-0.03 [facility] Comment on above: Performed By: #### C BC ####[facility] Amzviwglwc425[address] [place], [place] [address]Dr. Garima Pulliam IG % 0.4 % Normal 0.0-0.5 [facility] Comment on above: Performed By: #### C BC ####[facility] Bevedljuiu57[address] [place], [place] [address]Dr. Garima Pulliam LYMPH # 2.2 103/ul Normal 1.2-3.8 [facility] Comment on above: Performed By: #### C BC ####[facility] Smbsvbwbgw0387 [place] [id number]. Chapisrenu Pulliam Lymphocytes/100 WBC (Bld) 21.5 % Normal 20.5-60.0 [facility] Comment on above: Performed By: #### C BC ####[facility] Lqkzdftouv1402 [place] [id number]. Garima Pulliam MANUAL DIFF REQ NO Normal [facility] Comment on above: Performed By: #### C BC ####[facility] Zhdcboznmd9340 [place] [phone]. Garima Pulliam MCH (RBC) [Entitic mass] 30.4 pg Normal 25.9-34.0 [facility] Comment on above: Performed By: #### C BC ####[facility] Lytjitermg8213 [place] [phone]. Garima Pulliam MCHC (RBC) [Mass/Vol] 34.0 g/dL Normal 29.9-35.2 [facility] Comment on above: Performed By: #### C BC ####[facility] Nasejrxvvu2668 [place] [id number]. Garima Pulliam MCV (RBC) [Entitic vol] 89.6 fL Normal 80.0-94.0 [facility] Comment on above: Performed By: #### C BC ####[facility] Eozcbziwzr7434 [place] [id number]. Garima Pulliam MONO # 0.8 103/ul Normal 0.3-0.8 [facility] Comment on above: Performed By: #### C BC ####[facility] Dsucdjhwbb2441 [place] [id number]. Garima Pulliam Monocytes/100 WBC (Bld) 7.7 % Normal 1.7-12.0 [facility] Comment on above: Performed By: #### C BC ####[facility] Nuhlpvlsbe4295 [place] [id number]. Garima Pulliam NEUT # 7.0 103/ul Critically high 1.4-6.5 [facility] Comment on above: Performed By: #### C BC ####[facility] Rusjjffzez8294 [place] [address]Dr. Garima Pulliam Neutrophils/100 WBC (Bld) 68.2 % Normal 43.0-75.0 [facility] Comment on above: Performed By: #### C BC ####[facility] Wskzthsxje1736 [place] [phone]. Garima Pulliam Platelet mean volume (Bld) [Entitic vol] 8.9 fL Critically low 9.5-13.5 [facility] Comment on above: Performed By: #### C BC ####[facility] Saztlncpcc2808 [place] [address]Dr. Garima Pulliam PLT 222 103/ul Normal 150-450 [facility] Comment on above: Performed By: #### C BC ####[facility] [address] [place] [address]Dr. Garima Pulliam RBC 4.73 106/ul Normal 4.70-6.10 [facility] Comment on above: Performed By: #### C BC ####[facility] Nwuhrflvnl[address] [place], [place] [address]Dr. Garima Pulliam WBC 10.3 103/ul Normal 4.0-11.0 [facility] Comment on above: Performed By: #### C BC ####[facility] Flxpjqknyk[address] [place] [address]DrAdalberto Pulliam PROF 14(COMP METB)on 023 Albumin [Mass/Vol] 3.7 g/dL Normal 3.4-5.0 [facility] Comment on above: Performed By: #### C MP, HSTROPN, BNP ####[facility] Xfxcsdcvne5[address] [place] [id number]. Garima Pulliam Albumin/Globulin [Mass ratio] 1.5 {ratio} Normal [facility] Comment on above: Performed By: #### C MP, HSTROPN, BNP ####[facility] Chmnyzgppx[address] [place] [id number] Pulliam ALP [Catalytic activity/Vol] 79 U/L Normal 46-116 [facility] Comment on above: Performed By: #### C DAVID HSTROPN, BNP ####[facility] Jdxmqnklld[address] [place] [address]Dr. Garima Pulliam ALT [Catalytic activity/Vol] 32 U/L Normal 16-63 [facility] Comment on above: Performed By: #### C DAVID, HSTROPN, BNP ####[facility] Jicjftpuzw[address] [place] [address]Dr. Garima Pulliam Anion gap [Moles/Vol] 9.5 mmol/L Normal [facility] Comment on above: Performed By: #### C DAVID HSTROPN, BNP ####[facility] Zyvpzkjorz[address] [place], [place] [address]Dr. Garima Pulliam AST [Catalytic activity/Vol] 25 U/L Normal 15-37 [facility] Comment on above: Performed By: #### C DAVID, HSTROPN, BNP ####[facility] Fyflopmrph[address] [place], [place] [address]Dr. Garima Pulliam Bilirubin [Mass/Vol] 0.4 mg/dL Normal 0.2-1.0 [facility] Comment on above: Performed By: #### C DAVID HSTROPN, BNP ####[facility] Wqmtjtvlnw6[address] [place], [place] [address]Dr. Garima Pulliam Calcium [Mass/Vol] 8.9 mg/dL Normal 8.5-10.1 [facility] Comment on above: Performed By: #### C DAVID, HSTROPN, BNP ####[facility] Zmubnwcwgz[address] [place] [address]Dr. Garima Pulliam Chloride [Moles/Vol] 103 mmol/L Normal 98-107 [facility] Comment on above: Performed By: #### C DAVID, HSTROPN, BNP ####[facility] Aghbiqstzi[address] [place] [address]Dr. Garima Pulliam CO2 [Moles/Vol] 28.6 mmol/L Normal 21.0-32.0 [facility] Comment on above: Performed By: #### C MP, HSTROPN, BNP ####[facility] Qqfkxsgjlo45[address] [place] [address]Dr. Garima Pulliam Creatinine [Mass/Vol] 0.72 mg/dL Normal 0.70-1.30 [facility] Comment on above: Performed By: #### C MP, HSTROPN, BNP ####[facility] Evfafuhsyo[address] [place] [address]Dr. Garima Pulliam EGFR-AF MALTESE >60 Normal >=60 [facility] Comment on above: Performed By: #### C MP, HSTROPN, BNP ####[facility] Zhsvuslkbg5[address] [place], [place] [address]Dr. Garima Pulliam EGFR-NON AF MALTESE >60 Normal >=60 [facility] Comment on above: Performed By: #### C MP, HSTROPN, BNP ####[facility] Cxoawfnhzj98[address] [place], [place] [address]Dr. Garima Pulliam Globulin (S) [Mass/Vol] 2.5 g/dL Normal [facility] Comment on above: Performed By: #### C MP, HSTROPN, BNP ####[facility] Xiummaybep47[address] [place], [place] [address]Dr. Garima Pulliam Glucose [Mass/Vol] 114 mg/dL Critically high 74-106 [facility] Comment on above: Performed By: #### C MP, HSTROPN, BNP ####[facility] Wbbbioqkil4[address] [place], [place] [address]Dr. Garima Pulliam Potassium [Moles/Vol] 4.1 mmol/L Normal 3.5-5.1 [facility] Comment on above: Performed By: #### C MP, HSTROPN, BNP ####[facility] Abatohhlli96[address] [place], [place] [address]Dr. Garima Pulliam Protein [Mass/Vol] 6.2 g/dL Critically low 6.4-8.2 [facility] Comment on above: Performed By: #### C MP, HSTROPN, BNP ####[facility] Bmrbcxzabp95[address] [place] [address]Dr. Garima Pulliam Sodium [Moles/Vol] 137 mmol/L Normal 136-145 [facility] Comment on above: Performed By: #### C MP, HSTROPN, BNP ####[facility] Siixupnbks4[address] [place] [address]Dr. Garima Pulliam Urea nitrogen [Mass/Vol] 13.0 mg/dL Normal 7.0-18.0 [facility] Comment on above: Performed By: #### C MP, HSTROPN, BNP ####[facility] Bscdtqipxr77[address] [place] [address]Dr. Chapisrenu Pulliam Urea nitrogen/Creatinine [Mass ratio] 18.1 mg/mg Normal [facility] Comment on above: Performed By: #### C MP, HSTROPN, BNP ####[facility] Vepzwogaly[address] [place], [place] [address]Dr. Garima Pulliam TROPONIN, HIGH SENSITIVITYon 11-27-2022 HSTROP 11.8 pg/mL Normal 4.0-76.1 [facility] Comment on above: Result Comment: CUT- OFF POINTS HAVE BEEN ESTABLISHED BASED ON THE FOURTH UNIVERSAL DEFINITIONS OF MYOCARDIALINFARCTION. THE UPPER REFERENCE LIMIT (URL) OF TROPONIN, DEFINED THE 99TH PERCENTILE OFcTnI DISTRIBUTION IN A REFERENCE POPULATION, HAS BEEN CONFIRMED THE DECISION THRESHOLDFOR NE DIAGNOSIS. Performed By: #### C MP, HSTROPN, BNP ####[facility] Lzzusuqgxq[address] [place] [address]Dr. Garima Pulliam XR CHEST 1 Von 11-27-2022 XR CHEST 1 V Normal [facility] BNPon 11-20-2022 Natriuretic peptide B (Bld) [Mass/Vol] 73.0 pg/mL Normal <=900.0 [facility] Comment on above: Performed By: #### B MP, HSTROPN, BNP ####[facility] Kntialmhct[address] [place], [place] [address]Dr. Chapisrenu Pulliam CBC AUTO DIFFon 11-20-2022 BASO # 0.0 103/ul Normal 0.0-0.1 [facility] Comment on above: Performed By: #### C BC ####[facility] Xsiphhhdsq8[address] [place] [id number]. Garima Pulliam Basophils/100 WBC (Bld) 0.3 % Normal 0.2-2.0 [facility] Comment on above: Performed By: #### C BC ####[facility] Wfnzkciqol[address] [place], [place] [address]Dr. Garima Pulliam EO # 0.2 103/ul Normal 0.0-0.7 [facility] Comment on above: Performed By: #### C BC ####[facility] Birktighcr[address] [place], [place] [address]Dr. Garima Pulliam Eosinophils/100 WBC (Bld) 2.1 % Normal 0.9-7.0 [facility] Comment on above: Performed By: #### C BC ####[facility] Zhtylawaqz94[address] [place], [place] [address]Dr. Garima Pulliam Erythrocyte distribution width (RBC) [Ratio] 13.2 % Normal 11.0-15.0 [facility] Comment on above: Performed By: #### C BC ####[facility] Jtrakohcxz7[address] [place], [place] [address]Dr. Garima Pulliam Hematocrit (Bld) [Volume fraction] 43.4 % Normal 42.0-54.0 [facility] Comment on above: Performed By: #### C BC ####[facility] Fkurfbzngc[address] [place], [place] [address]Dr. Garima Pulliam Hemoglobin (Bld) [Mass/Vol] 14.6 g/dL Normal 14.0-18.0 [facility] Comment on above: Performed By: #### C BC ####[facility] Rzkodjcmbq[address] [place], [place] [address]Dr. Garima Pulliam IG # 0.02 10e3/ul Normal 0.00-0.03 [facility] Comment on above: Performed By: #### C BC ####[facility] Qifnygbhhh39[address] [place], [place] [address]Dr. Garima Pulliam IG % 0.2 % Normal 0.0-0.5 [facility] Comment on above: Performed By: #### C BC ####[facility] Wohochadlc80[address] [place] [phone]. Chapisrenu Heraclio LYMPH # 2.1 103/ul Normal 1.2-3.8 [facility] Comment on above: Performed By: #### C BC ####[facility] Gjycojhqqo7[address] [place] [id number]. Garima Pulliam Lymphocytes/100 WBC (Bld) 19.2 % Critically low 20.5-60.0 [facility] Comment on above: Performed By: #### C BC ####[facility] Cljmnbnpwi30[address] [place] [id number]. Garima Pulliam MANUAL DIFF REQ NO Normal [facility] Comment on above: Performed By: #### C BC ####[facility] Wnwuuqromx9476 [place] [phone]. Garima Pulliam MCH (RBC) [Entitic mass] 30.4 pg Normal 25.9-34.0 [facility] Comment on above: Performed By: #### C BC ####[facility] Flflidpozt039[address] [place] [id number]. Garima Pulliam MCHC (RBC) [Mass/Vol] 33.6 g/dL Normal 29.9-35.2 [facility] Comment on above: Performed By: #### C BC ####[facility] Ogsdruloyk8[address] [place] [phone]. Garima Pulliam MCV (RBC) [Entitic vol] 90.4 fL Normal 80.0-94.0 [facility] Comment on above: Performed By: #### C BC ####[facility] Ligzexxdec8[address] [place] [address]Dr. Garima Pulliam MONO # 0.6 103/ul Normal 0.3-0.8 [facility] Comment on above: Performed By: #### C BC ####[facility] Mztnpduarz1256 [place] [id number]. Garima Pulliam Monocytes/100 WBC (Bld) 5.8 % Normal 1.7-12.0 [facility] Comment on above: Performed By: #### C BC ####[facility] Fyppgiiadv022[address] [place] [id number]. Garima Pulliam NEUT # 7.8 103/ul Critically high 1.4-6.5 [facility] Comment on above: Performed By: #### C BC ####[facility] Lmccwefjln5[address] [place] [phone]. Garima Pulliam Neutrophils/100 WBC (Bld) 72.4 % Normal 43.0-75.0 [facility] Comment on above: Performed By: #### C BC ####[facility] Dugygdzrre7[address] [place] [phone]. Garima Pulliam Platelet mean volume (Bld) [Entitic vol] 8.7 fL Critically low 9.5-13.5 [facility] Comment on above: Performed By: #### C BC ####[facility] Sypaupfutk[address] [place] [address]Dr. Garima Pulliam PLT 184 103/ul Normal 150-450 [facility] Comment on above: Performed By: #### C BC ####[facility] Iimxhyckpm7[address] [place] [phone]. Garima Pulliam RBC 4.80 106/ul Normal 4.70-6.10 [facility] Comment on above: Performed By: #### C BC ####[facility] Awdfipnkoz4271 [place] [phone]. Garima Pulliam WBC 10.8 103/ul Normal 4.0-11.0 [facility] Comment on above: Performed By: #### C BC ####[facility] Azpqlicneu[address] [place], [place] [address]Dr. Garima Pulliam Covid-19 PCR (CVDTB)on 10-24 SARS-CoV-2 (COVID-19) RNA MARIE+probe Ql (Unsp spec) Not detected Normal NOT DETECTED [facility] Comment on above: Result Comment: [...] for this test is supported by the [employer] and Human Service's declaration that [...] be used). Performed By: #### C VDTB ####[facility] Fyytfdihgs[address] [place], [place] [address]Dr. Garima Pulliam INFLUENZA A AND B AGon 11-20 [facility] SEE BELOW Normal [facility] Comment on above: Result Comment: Nega tive for Flu A protein angiten. Infection due to Flu A cannot be ruled out. Flu A angiten in the sample may be below the detection limit of the test. Performed By: #### I NFLUAB ####[facility] Htsnieludq[address] [place], [place] [address]Dr. Garima Pulliam INFLUBNEG SEE BELOW Normal [facility] Comment on above: Result Comment: Nega tive for Flu B protein antigen. Infection due to Flu B cannot be ruled out. Flu B antigen in the sample may be below the detection limit of the test. Performed By: #### I NFLUAB ####[facility] Jahsirgtxy[address] [place], [place] [address]Dr. Garima Pulliam INFLUENZA A AG Negative Normal NEGATIVE SEE COMMENT [facility] Comment on above: Performed By: #### I NFLUAB ####[facility] Rylnzwmjch7[address] [place], [place] [address]Dr. Garima Pulliam INFLUENZA B AG Negative Normal NEGATIVE SEE COMMENT [facility] Comment on above: Performed By: #### I NFLUAB ####[facility] Hcwdlktbht8[address] [place], [place] [address]Dr. Garima Pulliam PROF CHEM 8 (BAS METB)on Anion gap [Moles/Vol] 8.2 mmol/L Normal [facility] Comment on above: Performed By: #### B MP, HSTROPN, BNP ####[facility] Qdnoxaangv[address] [place] [address]Dr. Garima Pulliam Calcium [Mass/Vol] 8.7 mg/dL Normal 8.5-10.1 [facility] Comment on above: Performed By: #### B MP, HSTROPN, BNP ####[facility] Verpyfrudj[address] [place] [address]Dr. Garima Pulliam Chloride [Moles/Vol] 103 mmol/L Normal 98-107 [facility] Comment on above: Performed By: #### B MP, HSTROPN, BNP ####[facility] Enwmeuhckw280[address] [place] [address]Dr. Garima Pulliam CO2 [Moles/Vol] 29.4 mmol/L Normal 21.0-32.0 [facility] Comment on above: Performed By: #### B MP, HSTROPN, BNP ####[facility] Oudkhsklmt0[address] [place], [place] [address]Dr. Garima Pulliam Creatinine [Mass/Vol] 0.69 mg/dL Critically low 0.70-1.30 [facility] Comment on above: Performed By: #### B MP, HSTROPN, BNP ####[facility] Ttrxdvsksn225[address] [place] [address]Dr. Garima Pulliam EGFR-AF MALTESE >60 Normal >=60 [facility] Comment on above: Performed By: #### B MP, HSTROPN, BNP ####[facility] Ujxprslocm[address] [place], [place] [address]Dr. Garima Pulliam EGFR-NON AF MALTESE >60 Normal >=60 [facility] Comment on above: Performed By: #### B MP, HSTROPN, BNP ####[facility] Quntllciua18[address] [place] [address]Dr. Chapisrenu Pulliam Glucose [Mass/Vol] 209 mg/dL Critically high 74-106 [facility] Comment on above: Performed By: #### B MP, HSTROPN, BNP ####[facility] Itnolihweu2806 [place] [address]Dr. Garima Pulliam Potassium [Moles/Vol] 3.6 mmol/L Normal 3.5-5.1 [facility] Comment on above: Performed By: #### B MP, HSTROPN, BNP ####[facility] Ncghkqfeyh76[address] [place] [address]Dr. Garima Pulliam Sodium [Moles/Vol] 137 mmol/L Normal 136-145 [facility] Comment on above: Performed By: #### B MP, HSTROPN, BNP ####[facility] Zwcnmwsfcv1737 [place] [address]Dr. Garima Pulliam Urea nitrogen [Mass/Vol] 11.0 mg/dL Normal 7.0-18.0 [facility] Comment on above: Performed By: #### B MP, HSTROPN, BNP ####[facility] Yrdhkdalvv80[address] [place] [address]Dr. Garima Pulliam Urea nitrogen/Creatinine [Mass ratio] 15.9 mg/mg Normal [facility] Comment on above: Performed By: #### B MP, HSTROPN, BNP ####[facility] Chpxvcngnh[address] [place] [address]Dr. Garima Pulliam TROPONIN, HIGH SENSITIVITYon 11-20-2022 HSTROP 8.7 pg/mL Normal 4.0-76.1 [facility] Comment on above: Result Comment: CUT- OFF POINTS HAVE BEEN ESTABLISHED BASED ON THE FOURTH UNIVERSAL DEFINITIONS OF MYOCARDIALINFARCTION. THE UPPER REFERENCE LIMIT (URL) OF TROPONIN, DEFINED THE 99TH PERCENTILE OFcTnI DISTRIBUTION IN A REFERENCE POPULATION, HAS BEEN CONFIRMED THE DECISION THRESHOLDFOR NE DIAGNOSIS. Performed By: #### B MP, HSTROPN, BNP ####[facility] Kymekrkddf[address] [place] [address]Dr. Garima Pulliam XR CHEST 1 Von 11-20-2022 XR CHEST 1 V Normal [facility] XR CHEST 1 Von 10-02-2022 XR CHEST 1 V Normal [facility] BNPon 09-29-2022 Natriuretic peptide B (Bld) [Mass/Vol] 107.0 pg/mL Normal <=900.0 [facility] Comment on above: Performed By: #### C MP, BNP, CMADM ####[facility] Slkppgztdj69[address] [place] [address]Dr. Garima Pulliam CARDIAC NASH ADMITon 022 CK [Catalytic activity/Vol] 190 U/L Normal 39-308 [facility] Comment on above: Performed By: #### C MP, BNP, CMADM ####[facility] Smjdvazmar29[address] [place] [address]Dr. Garima Pulliam CK.MB [Mass/Vol] 11.11 ng/mL Critically high <=3.60 [facility] Comment on above: Performed By: #### C MP, BNP, CMADM ####[facility] Pqulfvmruf6[address] [place] [address]Dr. Garima Pulliam HSTROP 11.8 pg/mL Normal 4.0-76.1 [facility] Comment on above: Result Comment: CUT- OFF POINTS HAVE BEEN ESTABLISHED BASED ON THE FOURTH UNIVERSAL DEFINITIONS OF MYOCARDIALINFARCTION. THE UPPER REFERENCE LIMIT (URL) OF TROPONIN, DEFINED THE 99TH PERCENTILE OFcTnI DISTRIBUTION IN A REFERENCE POPULATION, HAS BEEN CONFIRMED THE DECISION THRESHOLDFOR NE DIAGNOSIS. Performed By: #### C MP, BNP, CMADM ####[facility] Edopcskjkx87[address] [place] [address]Dr. Garima Pulliam DORIS 133 ng/mL Critically high 16-96 [facility] Comment on above: Performed By: #### C MP, BNP, CMADM ####[facility] Ulgsuipptx35[address] [place] [address]Dr. Garima Pulliam CBC AUTO DIFFon 09-29-2022 BASO # 0.0 103/ul Normal 0.0-0.1 [facility] Comment on above: Performed By: #### C BC ####[facility] Egqhhnrsfm40[address] [place] [address]Dr. Garima Pulliam Basophils/100 WBC (Bld) 0.2 % Normal 0.2-2.0 [facility] Comment on above: Performed By: #### C BC ####[facility] Pdswlkxdvi2732 [place] [address]Dr. Garima Pulliam EO # 0.1 103/ul Normal 0.0-0.7 [facility] Comment on above: Performed By: #### C BC ####[facility] Kddtgtuviv6327 [place] [address]Dr. Garima Pulliam Eosinophils/100 WBC (Bld) 1.4 % Normal 0.9-7.0 [facility] Comment on above: Performed By: #### C BC ####[facility] Gufubrkevm96[address] [place] [address]Dr. Garima Pulliam Erythrocyte distribution width (RBC) [Ratio] 13.7 % Normal 11.0-15.0 [facility] Comment on above: Performed By: #### C BC ####[facility] Ynqvxatuuo[address] [place], [place] [address]Dr. Garima Pulliam Hematocrit (Bld) [Volume fraction] 45.4 % Normal 42.0-54.0 [facility] Comment on above: Performed By: #### C BC ####[facility] Msymctabqm[address] [place], [place] [address]Dr. Garima Pulliam Hemoglobin (Bld) [Mass/Vol] 14.8 g/dL Normal 14.0-18.0 [facility] Comment on above: Performed By: #### C BC ####[facility] Jceqkxajrv[address] [place], [place] [address]Dr. Garima Pulliam IG # 0.04 10e3/ul Critically high 0.00-0.03 [facility] Comment on above: Performed By: #### C BC ####[facility] Wlgbsakqtf5[address] [place], [place] [address]Dr. Garima Heraclio IG % 0.5 % Normal 0.0-0.5 [facility] Comment on above: Performed By: #### C BC ####[facility] Scndjlfdvr[address] [place], [place] [address]DrAdalberto Pulliam LYMPH # 1.1 103/ul Critically low 1.2-3.8 [facility] Comment on above: Performed By: #### C BC ####[facility] Cnhauxrayp9070 [place] [address]DrAdalberto Pulliam Lymphocytes/100 WBC (Bld) 12.7 % Critically low 20.5-60.0 [facility] Comment on above: Performed By: #### C BC ####[facility] Wzaogftvsb6516 [place] [address]DrAdalberto Pulliam MANUAL DIFF REQ NO Normal [facility] Comment on above: Performed By: #### C BC ####[facility] Sshtgewvzn9522 [place] [id number] Pulliam MCH (RBC) [Entitic mass] 30.0 pg Normal 25.9-34.0 [facility] Comment on above: Performed By: #### C BC ####[facility] Mxcsfwdfie0[address] [place], [place] [address]Dr. Garima Pulliam MCHC (RBC) [Mass/Vol] 32.6 g/dL Normal 29.9-35.2 [facility] Comment on above: Performed By: #### C BC ####[facility] Itqsfadwtu[address] [place], [place] [address]DrAdalberto Pulliam MCV (RBC) [Entitic vol] 91.9 fL Normal 80.0-94.0 [facility] Comment on above: Performed By: #### C BC ####[facility] Knfujlerel9665 [place] [address]DrAdalberto Pulliam MONO # 0.4 103/ul Normal 0.3-0.8 [facility] Comment on above: Performed By: #### C BC ####[facility] Iqxng[address]kp[address] [place], [place] [address]DrAdalberto Pulliam Monocytes/100 WBC (Bld) 4.8 % Normal 1.7-12.0 [facility] Comment on above: Performed By: #### C BC ####[facility] Auohzhyemq[address] [place], [place] [address]DrAdalberto Pulliam NEUT # 7.1 103/ul Critically high 1.4-6.5 [facility] Comment on above: Performed By: #### C BC ####[facility] Sxiaovyvrl8385 [place] [id number]. Garima Pulliam Neutrophils/100 WBC (Bld) 80.4 % Critically high 43.0-75.0 [facility] Comment on above: Performed By: #### C BC ####[facility] Hwltvzqxdz6491 [place] [phone]. Garima Pulliam Platelet mean volume (Bld) [Entitic vol] 9.1 fL Critically low 9.5-13.5 [facility] Comment on above: Performed By: #### C BC ####[facility] Kijbdclydd8792 [place] [phone]. Garima Pulliam PLT 200 103/ul Normal 150-450 [facility] Comment on above: Performed By: #### C BC ####[facility] Xrzythamwu5681 [place] [phone]. Garima Pulliam RBC 4.94 106/ul Normal 4.70-6.10 [facility] Comment on above: Performed By: #### C BC ####[facility] Ytrofqqgbq1531 [place] [phone]. Garima Pulilam WBC 8.9 103/ul Normal 4.0-11.0 [facility] Comment on above: Performed By: #### C BC ####[facility] Tldkejvkbx0153 [place] [phone]. Garima Pulliam [facility]on SARS-CoV-2 (COVID-19) RNA MARIE+probe Ql (Unsp spec) Not detected Normal NOT DETECTED [facility] Comment on above: Result Comment: [...] for this test is supported by the [employer] and Human Service's declaration that [...] be used). Performed By: #### C VDTBH ####[facility] [address]ucvwzckf[address] [place] [address]Dr. Garima Pulliam LACTATE/LACTIC ACIDon 2021 Lactate [Moles/Vol] 1.7 mmol/L Normal 0.4-1.9 [facility] Comment on above: Performed By: #### L ACT ####[facility] Hjagvrfewm[address] [address] [place], [place] [address]Dr. Garima Pulliam PROF 14(COMP METB)on 022 Albumin [Mass/Vol] 3.8 g/dL Normal 3.4-5.0 [facility] Comment on above: Performed By: #### C MP, BNP, CMADM ####[facility] [address] [place] [address]Dr. Garima Pulliam Albumin/Globulin [Mass ratio] 1.5 {ratio} Normal [facility] Comment on above: Performed By: #### C MP, BNP, CMADM ####[facility] Opdqvhqmwv[address] [place], [place] [address]Dr. Garima Pulliam ALP [Catalytic activity/Vol] 62 U/L Normal 46-116 [facility] Comment on above: Performed By: #### C MP, BNP, CMADM ####[facility] Ydqwidlpwg[address] [place] [address]Dr. Garima Pulliam ALT [Catalytic activity/Vol] 37 U/L Normal 16-63 [facility] Comment on above: Performed By: #### C MP, BNP, CMADM ####[facility] Menobhbwsu[address] [place] [address]Dr. Garima Pulliam Anion gap [Moles/Vol] 8.0 mmol/L Normal [facility] Comment on above: Performed By: #### C MP, BNP, CMADM ####[facility] Txarpumxbh[address] [place] [address]Dr. Garima Pulliam AST [Catalytic activity/Vol] 20 U/L Normal 15-37 [facility] Comment on above: Performed By: #### C MP, BNP, CMADM ####[facility] Xypwtexkrk[address] [place] [address]Dr. Garima Pulliam Bilirubin [Mass/Vol] 0.6 mg/dL Normal 0.2-1.0 [facility] Comment on above: Performed By: #### C MP, BNP, CMADM ####[facility] [address]ngicmjmn[address] [place] [address]Dr. Garima Pulliam Calcium [Mass/Vol] 9.1 mg/dL Normal 8.5-10.1 [facility] Comment on above: Performed By: #### C MP, BNP, CMADM ####[facility] [address]iej[address]afxxu[address] [place] [address]Dr. Garima Pulliam Chloride [Moles/Vol] 103 mmol/L Normal 98-107 [facility] Comment on above: Performed By: #### C MP, BNP, CMADM ####[facility] Kztamfraqr[address] [place] [address]Dr. Garima Pulliam CO2 [Moles/Vol] 31.8 mmol/L Normal 21.0-32.0 [facility] Comment on above: Performed By: #### C MP, BNP, CMADM ####[facility] Xcixtxgxfc[address] [place] [address]Dr. Garima Pulliam Creatinine [Mass/Vol] 0.63 mg/dL Critically low 0.70-1.30 [facility] Comment on above: Performed By: #### C MP, BNP, CMADM ####[facility] [address]ir[address] [place] [address]Dr. Garima Pulliam EGFR-AF MALTESE >60 Normal >=60 [facility] Comment on above: Performed By: #### C MP, BNP, CMADM ####[facility] Pr[address]irnjrgv[address] [place] [id number]. Garima Pulliam EGFR-NON AF MALTESE >60 Normal >=60 [facility] Comment on above: Performed By: #### C MP, BNP, CMADM ####[facility] Qwsptifiyq[address] [place] [address]Dr. Garima Pulliam Globulin (S) [Mass/Vol] 2.6 g/dL Normal [facility] Comment on above: Performed By: #### C MP, BNP, CMADM ####[facility] Pvuiulhmoq[address] [place] [address]Dr. Garima Pulliam Glucose [Mass/Vol] 103 mg/dL Normal 74-106 [facility] Comment on above: Performed By: #### C MP, BNP, CMADM ####[facility] [address]jedhyzupn[address] [place] [address]Dr. Garima Pulliam Potassium [Moles/Vol] 3.8 mmol/L Normal 3.5-5.1 [facility] Comment on above: Performed By: #### C MP, BNP, CMADM ####[facility] Siwsncvfpa[address] [place] [address]Dr. Garima Pulliam Protein [Mass/Vol] 6.4 g/dL Normal 6.4-8.2 [facility] Comment on above: Performed By: #### C MP, BNP, CMADM ####[facility] Ljlohrzqhh[address] [place] [address]Dr. Garima Pulliam Sodium [Moles/Vol] 139 mmol/L Normal 136-145 [facility] Comment on above: Performed By: #### C MP, BNP, CMADM ####[facility] Smbmsztcyp060[address] [place] [address]Dr. Garima Pulliam Urea nitrogen [Mass/Vol] 7.0 mg/dL Normal 7.0-18.0 [facility] Comment on above: Performed By: #### C MP, BNP, CMADM ####[facility] Jmdeogvkny[address] [place] [address]Dr. Garima Pulliam Urea nitrogen/Creatinine [Mass ratio] 11.1 mg/mg Normal [facility] Comment on above: Performed By: #### C MP, BNP, CMADM ####[facility] Psylytpbne[address] [place] [address]Dr. Chapisrenu Pulliam PROTIMEon 09-29-2022 INR Coag (PPP) [Relative time] 1.14 {INR} Normal [facility] Comment on above: Performed By: #### P T, PTT ####[facility] [address]us[address] [place], [place] [address]Dr. Garima Pulliam INR GUIDELINES SEE BELOW Normal [facility] Comment on above: Result Comment: WESLEY RED INR: 2.0 - 3.0 CONDITIONS NOT LISTED BELOW 2.5 - 3.5 FOR PROSTHETIC HEART VALVE REPLACEMENT 2.5 - 3.5 RECURRENT THROMBOSIS Performed By: #### P T, PTT ####[facility] Xeykdayjbn4[address] [place], [place] [address]Dr. Garima Pulliam PT Coag (PPP) [Time] 12.2 s Critically high 9.0-11.6 [facility] Comment on above: Performed By: #### P T, PTT ####[facility] [address]yup[address]rpg[address] [place], [place] [address]Dr. Garima Pulliam PTTon 09-29-2022 aPTT Coag (Bld) [Time] 29.3 s Normal 22.3-36.2 [facility] Comment on above: Performed By: #### P T, PTT ####[facility] Cqiwzfdscr[address] [place], [place] [address]Dr. Garima Pulliam XR CHEST 1 Von 09-29-2022 XR CHEST 1 V Normal [facility] CBC AUTO DIFFon 09-26-2022 BASO # 0.0 103/ul Normal 0.0-0.1 [facility] Comment on above: Performed By: #### C BC ####[facility] Urytgmypdg[address] [place], [place] [address]Dr. Garima Pulliam Basophils/100 WBC (Bld) 0.2 % Normal 0.2-2.0 [facility] Comment on above: Performed By: #### C BC ####[facility] Ixiexmwzry[address] [place] [address]Dr. Garima Pulliam EO # 0.1 103/ul Normal 0.0-0.7 [facility] Comment on above: Performed By: #### C BC ####[facility] Zdxpegkxls[address] [place], [place] [address]Dr. Garima Pulliam Eosinophils/100 WBC (Bld) 1.0 % Normal 0.9-7.0 [facility] Comment on above: Performed By: #### C BC ####[facility] Swuejzxstd[address] [place], [place] [address]Dr. Garima Pulliam Erythrocyte distribution width (RBC) [Ratio] 13.4 % Normal 11.0-15.0 [facility] Comment on above: Performed By: #### C BC ####[facility] Zuurrgpraw[address] [place], [place] [address]Dr. Garima Pulliam Hematocrit (Bld) [Volume fraction] 46.3 % Normal 42.0-54.0 [facility] Comment on above: Performed By: #### C BC ####[facility] Hwrdmbysif[address] [place], [place] [address]Dr. Garima Pulliam Hemoglobin (Bld) [Mass/Vol] 15.3 g/dL Normal 14.0-18.0 [facility] Comment on above: Performed By: #### C BC ####[facility] Fklxyxizib[address] [place], [place] [address]Dr. Garima Pulliam IG # 0.05 10e3/ul Critically high 0.00-0.03 [facility] Comment on above: Performed By: #### C BC ####[facility] Bqkbkwnxtz[address] [place], [place] [address]Dr. Garima Pulliam IG % 0.4 % Normal 0.0-0.5 [facility] Comment on above: Performed By: #### C BC ####[facility] Blnttalkwz[address] [place], [place] [address]Dr. Garima Pulliam LYMPH # 1.7 103/ul Normal 1.2-3.8 [facility] Comment on above: Performed By: #### C BC ####[facility] Vvtqfhjyrq[address] [place] [address]Dr. Chapisrenu Pulliam Lymphocytes/100 WBC (Bld) 12.7 % Critically low 20.5-60.0 [facility] Comment on above: Performed By: #### C BC ####[facility] Tmswatcgni[address] [place] [address]Dr. Chapisrenu Pulliam MANUAL DIFF REQ NO Normal [facility] Comment on above: Performed By: #### C BC ####[facility] S[address]jgvgqpol[address] [place] [address]Dr. Garima Pulliam MCH (RBC) [Entitic mass] 30.1 pg Normal 25.9-34.0 [facility] Comment on above: Performed By: #### C BC ####[facility] Jbyfuvxxpj[address] [place], [place] [address]Dr. Garima Pulliam MCHC (RBC) [Mass/Vol] 33.0 g/dL Normal 29.9-35.2 [facility] Comment on above: Performed By: #### C BC ####[facility] Htvxherhqv8[address] [place], [place] [address]Dr. Garima Pulliam MCV (RBC) [Entitic vol] 91.1 fL Normal 80.0-94.0 [facility] Comment on above: Performed By: #### C BC ####[facility] Cqvozapwdo[address] [place], [place] [address]Dr. Garima Pulliam MONO # 0.9 103/ul Critically high 0.3-0.8 [facility] Comment on above: Performed By: #### C BC ####[facility] Togmtcgpbz[address] [place], [place] [address]Dr. Garima Pulliam Monocytes/100 WBC (Bld) 7.0 % Normal 1.7-12.0 [facility] Comment on above: Performed By: #### C BC ####[facility] Uyuvvrlkge[address] [place], [place] [address]Dr. Garima Pulliam NEUT # 10.4 103/ul Critically high 1.4-6.5 [facility] Comment on above: Performed By: #### C BC ####[facility] Vlbdlignnq[address] [place] [address]Dr. Garima Pulliam Neutrophils/100 WBC (Bld) 78.7 % Critically high 43.0-75.0 [facility] Comment on above: Performed By: #### C BC ####[facility] Jpfepkbkzo48[address] [place] [address]Dr. Garima Pulliam Platelet mean volume (Bld) [Entitic vol] 8.9 fL Critically low 9.5-13.5 [facility] Comment on above: Performed By: #### C BC ####[facility] Ohzcdyavyy8[address] [place] [address]Dr. Garima Pulliam PLT 195 103/ul Normal 150-450 [facility] Comment on above: Performed By: #### C BC ####[facility] Whzbjfwfqi[address] [place] [address]Dr. Garima Pulliam RBC 5.08 106/ul Normal 4.70-6.10 [facility] Comment on above: Performed By: #### C BC ####[facility] Xfnvryoxgw24[address] [place] [address]Dr. Garima Pulliam WBC 13.2 103/ul Critically high 4.0-11.0 [facility] Comment on above: Performed By: #### C BC ####[facility] Dkdoaqeqeh25[address] [place] [address]Dr. Garima Pulliam PROF 14(COMP METB)on 022 Albumin [Mass/Vol] 3.5 g/dL Normal 3.4-5.0 [facility] Comment on above: Performed By: #### C DAVID HSTROPN ####[facility] [address]uan[address] [place] [id number]. Garima Pulliam Albumin/Globulin [Mass ratio] 1.2 {ratio} Normal [facility] Comment on above: Performed By: #### C DAVID, HSTROPN ####[facility] Iksvwrlhpd9[address] [place] [id number]. Garima Pulliam ALP [Catalytic activity/Vol] 71 U/L Normal 46-116 [facility] Comment on above: Performed By: #### C DAVID, HSTROPN ####[facility] Zditgyrfdj85[address] [place] [address]Dr. Garima Pulliam ALT [Catalytic activity/Vol] 37 U/L Normal 16-63 [facility] Comment on above: Performed By: #### C MP, HSTROPN ####[facility] Mpfkhehbkl[address] [place] [address]Dr. Garima Pulliam Anion gap [Moles/Vol] 4.8 mmol/L Normal [facility] Comment on above: Performed By: #### C MP, HSTROPN ####[facility] Desghvbkvu28[address] [place] [address]Dr. Garima Pulliam AST [Catalytic activity/Vol] 21 U/L Normal 15-37 [facility] Comment on above: Performed By: #### C DAVID, HSTROPN ####[facility] Kfwmyiuarf[address] [place], [place] [address]Dr. Garima Pulliam Bilirubin [Mass/Vol] 0.3 mg/dL Normal 0.2-1.0 [facility] Comment on above: Performed By: #### C DAVID, HSTROPN ####[facility] Gbbttpgwrk[address] [place], [place] [address]Dr. Garima Pulliam Calcium [Mass/Vol] 8.9 mg/dL Normal 8.5-10.1 [facility] Comment on above: Performed By: #### C DAVID, HSTROPN ####[facility] Dacffhjplz[address] [place], [place] [address]Dr. Garima Pulliam Chloride [Moles/Vol] 106 mmol/L Normal 98-107 [facility] Comment on above: Performed By: #### C MP, HSTROPN ####[facility] Awndnspzft[address] [place], [place] [address]Dr. Garima Pulliam CO2 [Moles/Vol] 29.8 mmol/L Normal 21.0-32.0 [facility] Comment on above: Performed By: #### C MP, HSTROPN ####[facility] Uwjgfwoegx[address] [place], [place] [address]Dr. Yilan Pulliam Creatinine [Mass/Vol] 0.68 mg/dL Critically low 0.70-1.30 [facility] Comment on above: Performed By: #### C DAVID, HSTROPN ####[facility] Yoanhpzzfi[address] [place] [address]Dr. Garima Pulliam EGFR-AF MALTESE >60 Normal >=60 [facility] Comment on above: Performed By: #### C DAVID, HSTROPN ####[facility] Ligwvlvojn[address] [place] [address]Dr. Garima Pulliam EGFR-NON AF MALTESE >60 Normal >=60 [facility] Comment on above: Performed By: #### C DAVID, HSTROPN ####[facility] Fvatpwlgkq4412 [place] [address]Dr. Garima Pulliam Globulin (S) [Mass/Vol] 2.8 g/dL Normal [facility] Comment on above: Performed By: #### C DAVID, HSTROPN ####[facility] Turtdcaevu[address] [place] [address]Dr. Garima Pulliam Glucose [Mass/Vol] 133 mg/dL Critically high 74-106 [facility] Comment on above: Performed By: #### C DAVID, HSTROPN ####[facility] Aapbfsmoaw9[address] [place] [address]Dr. Garima Pulliam Potassium [Moles/Vol] 3.6 mmol/L Normal 3.5-5.1 [facility] Comment on above: Performed By: #### C DAVID, HSTROPN ####[facility] Bgegqiebnu[address] [place] [address]Dr. Garima Pulliam Protein [Mass/Vol] 6.3 g/dL Critically low 6.4-8.2 [facility] Comment on above: Performed By: #### C DAVID, HSTROPN ####[facility] Spvamqinxl45[address] [place] [address]Dr. Garima Pulliam Sodium [Moles/Vol] 137 mmol/L Normal 136-145 [facility] Comment on above: Performed By: #### C DAVID, HSTROPN ####[facility] Gxphzbpirf2234 [place] [id number]. Garima Pulliam Urea nitrogen [Mass/Vol] 15.0 mg/dL Normal 7.0-18.0 [facility] Comment on above: Performed By: #### C MP, HSTROPN ####[facility] Owspapvjnn4[address] [place] [id number]. Garima Pulliam Urea nitrogen/Creatinine [Mass ratio] 22.1 mg/mg Normal [facility] Comment on above: Performed By: #### C MP, HSTROPN ####[facility] Jjzbkkwfta8[address] [place] [phone]. Garima Pulliam TROPONIN, HIGH SENSITIVITYon 09-26-2022 HSTROP 12.8 pg/mL Normal 4.0-76.1 [facility] Comment on above: Result Comment: CUT- OFF POINTS HAVE BEEN ESTABLISHED BASED ON THE FOURTH UNIVERSAL DEFINITIONS OF MYOCARDIALINFARCTION. THE UPPER REFERENCE LIMIT (URL) OF TROPONIN, DEFINED THE 99TH PERCENTILE OFcTnI DISTRIBUTION IN A REFERENCE POPULATION, HAS BEEN CONFIRMED THE DECISION THRESHOLDFOR NE DIAGNOSIS. Performed By: #### C MP, HSTROPN ####[facility] Askbgwlhhs4[address] [place] [address]Dr. Garima Pulliam XR CHEST 1 Von 09-26-2022 XR CHEST 1 V Normal [facility] XR CHEST 1 Von 09-16-2022 XR CHEST 1 V Normal [facility] CBC AUTO DIFFon 09-15-2022 BASO # 0.0 103/ul Normal 0.0-0.1 [facility] Comment on above: Performed By: #### C BC ####[facility] Hpzgvydupt73[address] [place] [id number]. Garima Heraclio Basophils/100 WBC (Bld) 0.1 % Critically low 0.2-2.0 [facility] Comment on above: Performed By: #### C BC ####[facility] Ligmfhbtoy6601 [place] [id number]. Garima Heraclio EO # 0.0 103/ul Normal 0.0-0.7 [facility] Comment on above: Performed By: #### C BC ####[facility] Rhjewqjyyo8[address] [place] [phone]. Garima Pulliam Eosinophils/100 WBC (Bld) 0.1 % Critically low 0.9-7.0 [facility] Comment on above: Performed By: #### C BC ####[facility] Vniitszwvp17[address] [place] [address]Dr. Garima Pulliam Erythrocyte distribution width (RBC) [Ratio] 14.1 % Normal 11.0-15.0 [facility] Comment on above: Performed By: #### C BC ####[facility] Lfhrudgepd[address] [place], [place] [address]Dr. Garima Pulliam Hematocrit (Bld) [Volume fraction] 46.1 % Normal 42.0-54.0 [facility] Comment on above: Performed By: #### C BC ####[facility] Fggopryvkb[address] [place], [place] [address]Dr. Garima Pulliam Hemoglobin (Bld) [Mass/Vol] 15.0 g/dL Normal 14.0-18.0 [facility] Comment on above: Performed By: #### C BC ####[facility] Klqcgjvpve[address] [place], [place] [address]Dr. Garima Pulliam IG # 0.03 10e3/ul Normal 0.00-0.03 [facility] Comment on above: Performed By: #### C BC ####[facility] Moelgggzdd[address] [place], [place] [address]Dr. Garima Pulliam IG % 0.3 % Normal 0.0-0.5 [facility] Comment on above: Performed By: #### C BC ####[facility] Qwwjaspbjq74[address] [place], [place] [address]Dr. Garima Pulliam LYMPH # 0.6 103/ul Critically low 1.2-3.8 [facility] Comment on above: Performed By: #### C BC ####[facility] Ptpkgxtpzo74[address] [place], [place] [address]Dr. Garima Pulliam Lymphocytes/100 WBC (Bld) 5.8 % Critically low 20.5-60.0 [facility] Comment on above: Performed By: #### C BC ####[facility] Shbfzptsls3[address] [place] [phone]. Garima Pulliam MANUAL DIFF REQ NO Normal [facility] Comment on above: Performed By: #### C BC ####[facility] Zgbmgatvsl4567 [place] [phone]. Garima Pulliam MCH (RBC) [Entitic mass] 30.2 pg Normal 25.9-34.0 [facility] Comment on above: Performed By: #### C BC ####[facility] Imffqiclef4[address] [place] [phone]. Garima Pulliam MCHC (RBC) [Mass/Vol] 32.5 g/dL Normal 29.9-35.2 [facility] Comment on above: Performed By: #### C BC ####[facility] Ycewcrapyu[address] [place], [place] [address]Dr. Garima Pulliam MCV (RBC) [Entitic vol] 92.8 fL Normal 80.0-94.0 [facility] Comment on above: Performed By: #### C BC ####[facility] [address]vtr[address]uj[address] [place], [place] [id number]. Garima Pulliam MONO # 0.3 103/ul Normal 0.3-0.8 [facility] Comment on above: Performed By: #### C BC ####[facility] Qynyoihrvs[address] [place], [place] [address]Dr. Garima Pulliam Monocytes/100 WBC (Bld) 3.2 % Normal 1.7-12.0 [facility] Comment on above: Performed By: #### C BC ####[facility] Awsnpnrgel[address] [place], [place] [address]Dr. Garima Pulliam NEUT # 9.8 103/ul Critically high 1.4-6.5 [facility] Comment on above: Performed By: #### C BC ####[facility] Ncnongbhbe[address] [place], [place] [address]Dr. Garima Pulliam Neutrophils/100 WBC (Bld) 90.5 % Critically high 43.0-75.0 [facility] Comment on above: Performed By: #### C BC ####[facility] Adpgjdcxcx87[address] [place] [address]Dr. Garima Pulliam Platelet mean volume (Bld) [Entitic vol] 9.4 fL Critically low 9.5-13.5 [facility] Comment on above: Performed By: #### C BC ####[facility] Hkqbhtyhlx4438 [place] [address]Dr. Garima Pulliam PLT 208 103/ul Normal 150-450 [facility] Comment on above: Performed By: #### C BC ####[facility] Xmtrlpdvys[address] [place], [place] [address]Dr. Garima Pulliam RBC 4.97 106/ul Normal 4.70-6.10 [facility] Comment on above: Performed By: #### C BC ####[facility] Vbeipjeabf25[address] [place], [place] [address]Dr. Garima Pulliam WBC 10.8 103/ul Normal 4.0-11.0 [facility] Comment on above: Performed By: #### C BC ####[facility] Foeqilqcvb[address] [place], [place] [address]Dr. Garima Pulliam PROF 14(COMP METB)on 022 Albumin [Mass/Vol] 4.0 g/dL Normal 3.4-5.0 [facility] Comment on above: Performed By: #### C MP ####[facility] Dfirpnzxra[address] [place], [place] [address]Dr. Garima Pulliam Albumin/Globulin [Mass ratio] 1.5 {ratio} Normal [facility] Comment on above: Performed By: #### C MP ####[facility] Wuydsuhehk[address] [place], [place] [address]Dr. Garima Pulliam ALP [Catalytic activity/Vol] 73 U/L Normal 46-116 [facility] Comment on above: Performed By: #### C MP ####[facility] Zwkwyvgjmx[address] [place], [place] [address]Dr. Garima Pulliam ALT [Catalytic activity/Vol] 42 U/L Normal 16-63 [facility] Comment on above: Performed By: #### C MP ####[facility] Izgjvsvjpr[address] [place] [address]Dr. Garima Pulliam Anion gap [Moles/Vol] 9.1 mmol/L Normal [facility] Comment on above: Performed By: #### C MP ####[facility] Ts[address]ogneuk[address] [place] [address]Dr. Garima Pulliam AST [Catalytic activity/Vol] 28 U/L Normal 15-37 [facility] Comment on above: Performed By: #### C MP ####[facility] Alucvappan47[address] [place] [address]Dr. Garima Pulliam Bilirubin [Mass/Vol] 0.6 mg/dL Normal 0.2-1.0 [facility] Comment on above: Performed By: #### C MP ####[facility] Bvokfvfqno[address] [place], [place] [address]Dr. Garima Pulliam Calcium [Mass/Vol] 8.6 mg/dL Normal 8.5-10.1 [facility] Comment on above: Performed By: #### C MP ####[facility] Eemtvvpyjy[address] [place], [place] [address]Dr. Garima Pulliam Chloride [Moles/Vol] 105 mmol/L Normal 98-107 [facility] Comment on above: Performed By: #### C MP ####[facility] Cwpjahwiwd[address] [place], [place] [address]Dr. Garima Pulliam CO2 [Moles/Vol] 28.5 mmol/L Normal 21.0-32.0 [facility] Comment on above: Performed By: #### C MP ####[facility] Edosxkjcwe5[address] [place], [place] [address]Dr. Garima Pulliam Creatinine [Mass/Vol] 0.78 mg/dL Normal 0.70-1.30 [facility] Comment on above: Performed By: #### C MP ####[facility] [address]ksuqlkkkr[address] [place] [address]Dr. Garima Pulliam EGFR-AF MALTESE >60 Normal >=60 [facility] Comment on above: Performed By: #### C MP ####[facility] Xtwztwgqug3[address] [place] [address]Dr. Garima Pulliam EGFR-NON AF MALTESE >60 Normal >=60 [facility] Comment on above: Performed By: #### C MP ####[facility] Xaahzwjoqe[address] [place] [address]Dr. Garima Pulliam Globulin (S) [Mass/Vol] 2.7 g/dL Normal [facility] Comment on above: Performed By: #### C MP ####[facility] Fgpbushrun14[address] [place] [address]Dr. Garima Pulliam Glucose [Mass/Vol] 220 mg/dL Critically high 74-106 T [facility] Comment on above: Performed By: #### C MP ####[facility] Fphfkerbew[address] [place], [place] [address]Dr. Garima Pulliam Potassium [Moles/Vol] 3.6 mmol/L Normal 3.5-5.1 [facility] Comment on above: Performed By: #### C MP ####[facility] Vylgynqwzq[address] [place], [place] [address]Dr. Garima Pulliam Protein [Mass/Vol] 6.7 g/dL Normal 6.4-8.2 [facility] Comment on above: Performed By: #### C MP ####[facility] Fsbaznovkv[address] [place], [place] [address]Dr. Garima Pulliam Sodium [Moles/Vol] 139 mmol/L Normal 136-145 [facility] Comment on above: Performed By: #### C MP ####[facility] Yrnnpkbiym0[address] [place], [place] [address]Dr. Garima Pulliam Urea nitrogen [Mass/Vol] 11.0 mg/dL Normal 7.0-18.0 [facility] Comment on above: Performed By: #### C MP ####[facility] Boqwibbasg[address] [place], [place] [address]Dr. Garima Pulliam Urea nitrogen/Creatinine [Mass ratio] 14.1 mg/mg Normal [facility] Comment on above: Performed By: #### C MP ####[facility] Umvmacvn[address] [place], [place] [id number]. Garima Pulliam CARDIAC NASH 3-6on 2 CK [Catalytic activity/Vol] 240 U/L Normal 39-308 [facility] Comment on above: Performed By: #### C MREP ####[facility] Vttzekvbow8113 [place], [place] [address]Xx. Garima Pulliam CK.MB [Mass/Vol] 10.38 ng/mL Critically high <=3.60 [facility] Comment on above: Performed By: #### C MREP ####[facility] Rgwpwhoayr0552 [place] [id number]. Garima Pulliam HSTROP 18.5 pg/mL Normal 4.0-76.1 [facility] Comment on above: Result Comment: CUT- OFF POINTS HAVE BEEN ESTABLISHED BASED ON THE FOURTH UNIVERSAL DEFINITIONS OF MYOCARDIALINFARCTION. THE UPPER REFERENCE LIMIT (URL) OF TROPONIN, DEFINED THE 99TH PERCENTILE OFcTnI DISTRIBUTION IN A REFERENCE POPULATION, HAS BEEN CONFIRMED THE DECISION THRESHOLDFOR NE DIAGNOSIS. Performed By: #### C MREP ####[facility] Sm[address]kbhnny[address] [place] [phone]. Garima Pulliam CK [Catalytic activity/Vol] 257 U/L Normal 39-308 [facility] Comment on above: Performed By: #### C MREP ####[facility] Orxkztnqsw1102 [place] [id number]. Garima Pulliam CK.MB [Mass/Vol] 9.89 ng/mL Critically high <=3.60 [facility] Comment on above: Performed By: #### C MREP ####[facility] Wneimbaaig3212 [place] [id number]. Garima Pulliam HSTROP 16.9 pg/mL Normal 4.0-76.1 [facility] Comment on above: Result Comment: CUT- OFF POINTS HAVE BEEN ESTABLISHED BASED ON THE FOURTH UNIVERSAL DEFINITIONS OF MYOCARDIALINFARCTION. THE UPPER REFERENCE LIMIT (URL) OF TROPONIN, DEFINED THE 99TH PERCENTILE OFcTnI DISTRIBUTION IN A REFERENCE POPULATION, HAS BEEN CONFIRMED THE DECISION THRESHOLDFOR NE DIAGNOSIS. Performed By: #### C MREP ####[facility] Fgnyffhwan3[address] [place] [address]Dr. Garima Pulliam CBC AUTO DIFFon 09-13-2022 BASO # 0.0 103/ul Normal 0.0-0.1 [facility] Comment on above: Performed By: #### C BC ####[facility] Rwdsfzewmn[address] [place], [place] [address]Dr. Chapisrenu Pulliam Basophils/100 WBC (Bld) 0.1 % Critically low 0.2-2.0 [facility] Comment on above: Performed By: #### C BC ####[facility] Efeqmbkvfz[address] [place], [place] [address]Dr. Chapisrenu Pulliam EO # 0.0 103/ul Normal 0.0-0.7 [facility] Comment on above: Performed By: #### C BC ####[facility] Kymabztdpu47[address] [place], [place] [address]Dr. Chapisrenu Pulliam Eosinophils/100 WBC (Bld) 0.0 % Critically low 0.9-7.0 [facility] Comment on above: Performed By: #### C BC ####[facility] Giamquxwvt20[address] [place], [place] [address]Dr. Chapisrenu Pulliam Erythrocyte distribution width (RBC) [Ratio] 13.6 % Normal 11.0-15.0 [facility] Comment on above: Performed By: #### C BC ####[facility] Xjhdumcndp64[address] [place], [place] [address]Dr. Garima Pulliam Hematocrit (Bld) [Volume fraction] 48.2 % Normal 42.0-54.0 [facility] Comment on above: Performed By: #### C BC ####[facility] Pefkktvvdv[address] [place], [place] [address]Dr. Chapisrenu Pulliam Hemoglobin (Bld) [Mass/Vol] 16.0 g/dL Normal 14.0-18.0 [facility] Comment on above: Performed By: #### C BC ####[facility] Iuzqxqehjr[address] [place], [place] [address]Dr. Garima Pulliam IG # 0.02 10e3/ul Normal 0.00-0.03 [facility] Comment on above: Performed By: #### C BC ####[facility] Trjzfqflka47[address] [place] [id number]. Garima Pulliam IG % 0.3 % Normal 0.0-0.5 [facility] Comment on above: Performed By: #### C BC ####[facility] Gpwhgtzvbx1791 [place] [id number]. Garima Heraclio LYMPH # 0.5 103/ul Critically low 1.2-3.8 [facility] Comment on above: Performed By: #### C BC ####[facility] [address]osx[address] [place] [id number]. Chapisrenu Pulliam Lymphocytes/100 WBC (Bld) 7.7 % Critically low 20.5-60.0 [facility] Comment on above: Performed By: #### C BC ####[facility] Thrltobyze37[address] [place] [address]Dr. Garima Pulliam MANUAL DIFF REQ NO Normal [facility] Comment on above: Performed By: #### C BC ####[facility] Dhyuvsynib3564 [place] [phone]. Garima Pulliam MCH (RBC) [Entitic mass] 30.6 pg Normal 25.9-34.0 [facility] Comment on above: Performed By: #### C BC ####[facility] Ndyxeqmmsj3650 [place] [phone]. Garima Heraclio MCHC (RBC) [Mass/Vol] 33.2 g/dL Normal 29.9-35.2 [facility] Comment on above: Performed By: #### C BC ####[facility] Jfpwlmjjbm2484 [place] [phone]. Garima Pulliam MCV (RBC) [Entitic vol] 92.2 fL Normal 80.0-94.0 [facility] Comment on above: Performed By: #### C BC ####[facility] Nth[address] [place], [place] [address]Dr. Garima Pulliam MONO # 0.0 103/ul Critically low 0.3-0.8 [facility] Comment on above: Performed By: #### C BC ####[facility] Lrgnfcjuma7006 [place] [phone]. Garima Pulliam Monocytes/100 WBC (Bld) 0.4 % Critically low 1.7-12.0 [facility] Comment on above: Performed By: #### C BC ####[facility] Awxaqpgxdw5076 [place] [phone]. Garima Pulliam NEUT # 6.2 103/ul Normal 1.4-6.5 [facility] Comment on above: Performed By: #### C BC ####[facility] Zunfsppvmn9867 [place] [address]Dr. Garima Pulliam Neutrophils/100 WBC (Bld) 91.5 % Critically high 43.0-75.0 [facility] Comment on above: Performed By: #### C BC ####[facility] Pupkajbomq[address] [place] [address]Dr. Garima Pulliam Platelet mean volume (Bld) [Entitic vol] 8.7 fL Critically low 9.5-13.5 [facility] Comment on above: Performed By: #### C BC ####[facility] Wsgktatvbt[address] [place], [place] [address]Dr. Garima Pulliam PLT 179 103/ul Normal 150-450 [facility] Comment on above: Performed By: #### C BC ####[facility] Wwidizvgjb2428 [place] [phone]. Garima Pulliam RBC 5.23 106/ul Normal 4.70-6.10 [facility] Comment on above: Performed By: #### C BC ####[facility] Dltjmpamwd4719 [place] [phone]. Garima Pulliam WBC 6.7 103/ul Normal 4.0-11.0 [facility] Comment on above: Performed By: #### C BC ####[facility] Ayhpgmhwgw[address] [place], [place] [address]DrAdalberto Garima Heraclio PROF CHEM 8 (BAS METB)on Anion gap [Moles/Vol] 12.1 mmol/L Normal [facility] Comment on above: Performed By: #### B MP ####[facility] Vjafivmojl49[address] [place] [address]Dr. Garima Pulliam Calcium [Mass/Vol] 8.7 mg/dL Normal 8.5-10.1 [facility] Comment on above: Performed By: #### B MP ####[facility] Wzmspkxmfg4642 [place] [phone]. Garima Pulliam Chloride [Moles/Vol] 105 mmol/L Normal 98-107 [facility] Comment on above: Performed By: #### B MP ####[facility] Kccqnkcrru85[address] [place] [address]Dr. Garima Pulliam CO2 [Moles/Vol] 25.5 mmol/L Normal 21.0-32.0 [facility] Comment on above: Performed By: #### B MP ####[facility] Ggnbaufzpu[address] [place], [place] [address]Dr. Garima Pulliam Creatinine [Mass/Vol] 0.63 mg/dL Critically low 0.70-1.30 [facility] Comment on above: Performed By: #### B MP ####[facility] Dxcxnjuzgj029[address] [place] [address]Dr. Garima Pulliam EGFR-AF MALTESE >60 Normal >=60 [facility] Comment on above: Performed By: #### B MP ####[facility] Bdklcwojsb8[address] [place] [address]Dr. Garima Pulliam EGFR-NON AF MALTESE >60 Normal >=60 [facility] Comment on above: Performed By: #### B MP ####[facility] Ajlwflctvu8170 [place] [address]Dr. Garima Pulliam Glucose [Mass/Vol] 162 mg/dL Critically high 74-106 [facility] Comment on above: Performed By: #### B MP ####[facility] Fuynggbcpd7543 [place] [address]Dr. Garima Pulliam Potassium [Moles/Vol] 3.6 mmol/L Normal 3.5-5.1 [facility] Comment on above: Performed By: #### B MP ####[facility] Veujxyuygp0860 [place] [phone]. Garima Pulliam Sodium [Moles/Vol] 139 mmol/L Normal 136-145 [facility] Comment on above: Performed By: #### B MP ####[facility] Ttzmuxarfs9977 [place] [id number]. Garima Heraclio Urea nitrogen [Mass/Vol] 9.0 mg/dL Normal 7.0-18.0 [facility] Comment on above: Performed By: #### B MP ####[facility] Cxmvzhdnxn9230 [place] [phone]. Garima Pulliam Urea nitrogen/Creatinine [Mass ratio] 14.3 mg/mg Normal [facility] Comment on above: Performed By: #### B DAVID ####[facility] Dvhweqdxnp5613 [place] [address]Dr. Garima Pulliam CARDIAC NASH ADMITon 022 CK [Catalytic activity/Vol] 304 U/L Normal 39-308 [facility] Comment on above: Performed By: #### B DAVID, NANCY ####[facility] Exbjseezrr5140 [place] [phone]. Garima Pulliam CK.MB [Mass/Vol] 11.81 ng/mL Critically high <=3.60 [facility] Comment on above: Performed By: #### B DAVID, NANCY ####[facility] Esxegwxjlr[address] [place] [address]Dr. Chapisrenu Pulliam HSTROP 13.3 pg/mL Normal 4.0-76.1 [facility] Comment on above: Result Comment: CUT- OFF POINTS HAVE BEEN ESTABLISHED BASED ON THE FOURTH UNIVERSAL DEFINITIONS OF MYOCARDIALINFARCTION. THE UPPER REFERENCE LIMIT (URL) OF TROPONIN, DEFINED THE 99TH PERCENTILE OFcTnI DISTRIBUTION IN A REFERENCE POPULATION, HAS BEEN CONFIRMED THE DECISION THRESHOLDFOR NE DIAGNOSIS. Performed By: #### B DAVID, CMADM ####[facility] Fxqcmijgvd7862 [place] [address]Dr. Garima Pulliam DORIS 133 ng/mL Critically high 16-96 [facility] Comment on above: Performed By: #### B ERVIN HERNANDEZDM ####[facility] Ewyunasbag4735 [place] [phone]. Garima Heraclio CBC AUTO DIFFon 09-12-2022 BASO # 0.0 103/ul Normal 0.0-0.1 [facility] Comment on above: Performed By: #### C BC ####[facility] Rekvuancih2541 [place] [id number]. Chapisrenu Pulliam Basophils/100 WBC (Bld) 0.2 % Normal 0.2-2.0 [facility] Comment on above: Performed By: #### C BC ####[facility] Khvhoqbvje[address] [place], [place] [address]Dr. Chapisrenu Pulliam EO # 0.2 103/ul Normal 0.0-0.7 [facility] Comment on above: Performed By: #### C BC ####[facility] Zqueuxdiui85[address] [place], [place] [address]Dr. Chapisrenu Pulliam Eosinophils/100 WBC (Bld) 1.3 % Normal 0.9-7.0 [facility] Comment on above: Performed By: #### C BC ####[facility] Jgdmoizgrx[address] [place], [place] [address]Dr. Garima Heraclio Erythrocyte distribution width (RBC) [Ratio] 13.7 % Normal 11.0-15.0 [facility] Comment on above: Performed By: #### C BC ####[facility] Bsfqcatazq69[address] [place], [place] [address]Dr. Garima Heraclio Hematocrit (Bld) [Volume fraction] 46.4 % Normal 42.0-54.0 [facility] Comment on above: Performed By: #### C BC ####[facility] Nhxdobcfqa94[address] [place], [place] [address]Dr. Chapisrenu Pulliam Hemoglobin (Bld) [Mass/Vol] 15.7 g/dL Normal 14.0-18.0 [facility] Comment on above: Performed By: #### C BC ####[facility] Tngvfxqyjo[address] [place], [place] [address]Dr. Garima Pulliam IG # 0.04 10e3/ul Critically high 0.00-0.03 [facility] Comment on above: Performed By: #### C BC ####[facility] Kgwcwnwnzr6579 [place] [id number] Chapisrenu Pulliam IG % 0.3 % Normal 0.0-0.5 [facility] Comment on above: Performed By: #### C BC ####[facility] Qchmxlinqz6780 [place] [id number] Pulliam LYMPH # 1.7 103/ul Normal 1.2-3.8 [facility] Comment on above: Performed By: #### C BC ####[facility] Qfinbakdnx1083 [place] [id number] Pulliam Lymphocytes/100 WBC (Bld) 11.5 % Critically low 20.5-60.0 [facility] Comment on above: Performed By: #### C BC ####[facility] Upfrjzqpia13[address] [place] [address]DrAdalberto Pulliam MANUAL DIFF REQ NO Normal [facility] Comment on above: Performed By: #### C BC ####[facility] Bemjmoekph7258 [place] [phone] Garima Heraclio MCH (RBC) [Entitic mass] 31.0 pg Normal 25.9-34.0 [facility] Comment on above: Performed By: #### C BC ####[facility] Vmtcfgnjml1407 [place] [phone] Chapisrenu Pulliam MCHC (RBC) [Mass/Vol] 33.8 g/dL Normal 29.9-35.2 [facility] Comment on above: Performed By: #### C BC ####[facility] Tfiwvvttiy3029 [place] [phone] Chapisrenu Pulliam MCV (RBC) [Entitic vol] 91.7 fL Normal 80.0-94.0 [facility] Comment on above: Performed By: #### C BC ####[facility] Wlhcvwskgk3159 [place] [id number] Pulliam MONO # 0.8 103/ul Normal 0.3-0.8 [facility] Comment on above: Performed By: #### C BC ####[facility] Dufxdtiktl4791 [place] [id number]. Garima Pulliam Monocytes/100 WBC (Bld) 5.2 % Normal 1.7-12.0 [facility] Comment on above: Performed By: #### C BC ####[facility] Zszlwagzqv3345 [place] [id number]. Garima Pulliam NEUT # 11.7 103/ul Critically high 1.4-6.5 [facility] Comment on above: Performed By: #### C BC ####[facility] Tgviuligaj6615 [place] [address]Dr. Garima Pulliam Neutrophils/100 WBC (Bld) 81.5 % Critically high 43.0-75.0 [facility] Comment on above: Performed By: #### C BC ####[facility] Dygnndvyqn3144 [place] [address]Dr. Garima Pulliam Platelet mean volume (Bld) [Entitic vol] 8.6 fL Critically low 9.5-13.5 [facility] Comment on above: Performed By: #### C BC ####[facility] Kcjdunzomj[address] [place], [place] [address]Dr. Garima Pulliam PLT 191 103/ul Normal 150-450 [facility] Comment on above: Performed By: #### C BC ####[facility] Lrdcumjzls1583 [place] [id number]. Garima Pulliam RBC 5.06 106/ul Normal 4.70-6.10 [facility] Comment on above: Performed By: #### C BC ####[facility] Vngtgpnomr8600 [place] [id number]. Garima Pulliam WBC 14.4 103/ul Critically high 4.0-11.0 [facility] Comment on above: Performed By: #### C BC ####[facility] Hhamrjzvoj70[address] [place] [id number]. Garima Pulliam [facility]on [facility]24 SARS-CoV-2 (COVID-19) RNA MARIE+probe Ql (Unsp spec) Not detected Normal NOT DETECTED [facility] Comment on above: Result Comment: [...] for this test is supported by the Staff Midwife of Health and Human Service's declaration that [...] be used). Performed By: #### C VDTBH ####[facility] Wlsdviotyf34[address] [place] [address]Dr. Garima Pulliam LACTATE/LACTIC ACIDon 2021 Lactate [Moles/Vol] 1.0 mmol/L Normal 0.4-1.9 [facility] Comment on above: Performed By: #### L ACT ####[facility] Jezhjuzojk1178 [place] [address]Dr. Garima Pulliam PROF CHEM 8 (BAS METB)on Anion gap [Moles/Vol] 11.6 mmol/L Normal [facility] Comment on above: Performed By: #### B MP, CMADM ####[facility] Jszxplcvov4242 [place] [address]Dr. Garima Pulliam Calcium [Mass/Vol] 9.2 mg/dL Normal 8.5-10.1 [facility] Comment on above: Performed By: #### B MP, CMADM ####[facility] Kapzkuxdhm9135 [place] [address]Dr. Gariam Pulliam Chloride [Moles/Vol] 105 mmol/L Normal 98-107 [facility] Comment on above: Performed By: #### B DAVID, CMADM ####[facility] Pmqgnnnmlf0067 [place] [address]Dr. Garima Pulliam CO2 [Moles/Vol] 25.9 mmol/L Normal 21.0-32.0 [facility] Comment on above: Performed By: #### B DAVID, CMADM ####[facility] Ouqkkcwjsd9767 [place] [address]Dr. Garima Pulliam Creatinine [Mass/Vol] 0.72 mg/dL Normal 0.70-1.30 [facility] Comment on above: Performed By: #### B DAVID, CMADM ####[facility] Ybkgkvclba10[address] [place] [address]Dr. Garima Pulliam EGFR-AF MALTESE >60 Normal >=60 [facility] Comment on above: Performed By: #### B DAVID, CMADM ####[facility] Ngcbfapevk6080 [place] [address]Dr. Garima Pulliam EGFR-NON AF MALTESE >60 Normal >=60 [facility] Comment on above: Performed By: #### B DAVID, CMADM ####[facility] Fsycyemmtt1003 [place] [address]Dr. Garima Pulliam Glucose [Mass/Vol] 111 mg/dL Critically high 74-106 [facility] Comment on above: Performed By: #### B DAVID, CMADM ####[facility] Acyqcrfjzw3336 [place] [address]Dr. Garima Pulliam Potassium [Moles/Vol] 3.5 mmol/L Normal 3.5-5.1 [facility] Comment on above: Performed By: #### B DAVID, CMADM ####[facility] Ubigmvwokj7362 [place] [address]Dr. Garima Pulliam Sodium [Moles/Vol] 139 mmol/L Normal 136-145 [facility] Comment on above: Performed By: #### B DAVID, CMADM ####[facility] Fyzbccrruc5014 [place] [address]Dr. Garima Pulliam Urea nitrogen [Mass/Vol] 7.0 mg/dL Normal 7.0-18.0 [facility] Comment on above: Performed By: #### B NANCY HERNANDEZ ####[facility] Uczvaqhelf[address] [place], [place] [address]Qj. Garima Heraclio Urea nitrogen/Creatinine [Mass ratio] 9.7 mg/mg Normal [facility] Comment on above: Performed By: #### B DAVID, NANCY ####[facility] Jxdvxaesdz6171 [place], [place] [address]Nl. Garima Pulliam XR CHEST 1 Von 09-12-2022 XR CHEST 1 V Normal [facility] Encounters Encounter Date Encounter Type [...] Facility:H1 Payers Date Payer Category Payer Unknown [id number] 1960 Medicaid [id number] 1960 Unknown [id number] 1960 Unknown [id number] 1954 Unknown [id number] 2.16.84 0.1.675019.3.579.2.593 1954 Unknown [id number] 2.16.84 0.1.462731.3.579.2.593 1954 Unknown [id number] 2.16.84 0.1.096354.3.579.2.593 1954 Unknown [id number] 2.16.84 0.1.881877.3.579.2.593 1954 Unknown [id number] 2.16.84 0.1.215909.3.579.2.593 1954 Unknown [id number] 2.16.84 0.1.798193.3.579.2.593 1954 Unknown [id number] 2.16.84 0.1.908769.3.579.2.593 1954 Unknown [id number] 2.16.84 0.1.703892.3.579.2.593 1954 Unknown [id number] 2.16.84 0.1.597421.3.579.2.593 1954 Unknown [id number] 2.16.84 0.1.743903.3.579.2.593 1954 Unknown [id number] 2.16.84 0.1.171001.3.579.2.593 1954 Unknown [id number] 2.16.84 0.1.252765.3.579.2.593 1954 Unknown [id number] 2.16.84 0.1.741572.3.579.2.593 1954 Unknown [id number] 2.16.84 0.1.184037.3.579.2.593 1954 Unknown [id number] 2.16.84 0.1.572207.3.579.2.593 1954 Unknown [id number] 2.16.84 0.1.061928.3.579.2.593 1954 Unknown [id number] 2.16.84 0.1.661770.3.579.2.593 1954 Unknown [id number] 2.16.84 0.1.413252.3.579.2.593 1954 Unknown [id number] 2.16.84 0.1.219252.3.579.2.593 1954 Unknown [id number] 2.16.84 0.1.857273.3.579.2.593 Summary Purpose Family History No Family History Records Found Advance Directives No Advanced Directives Records Found Additional Source Comments (unrecognized sect ion and content) No Status Records Found INFORMATION SOURCE (unrecogn ized section and content) DATE CREATED AUTHOR 04/08/[address] [facility] FOR RECORDS PERTAINING TO PATIENTS WHO [...] BE BASED ON THE PRIMARY CLINICAL RECORDS. [facility]. provides no warranty or guarantee of the accuracy or completeness of information in this document.
[2024-01-31 17:33] VITALS: O2SAT 95
--- NOTE | 2024-01-31 17:34 | ECG_ITS ---
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
--- NOTE | 2024-01-31 17:34 | XR_ITS ---
[facility] [id number] Patient Name: CONSTANZA BARRETO MRN: [id number] date: 1955 Sex: M Assigned Patient Location: ER Current Patient Location: ED.MAIN Accession/Order Number: [id number] Exam Date: 01/31/2024 17:42 Report Date: 01/31/2024 18:44 At the request of: DEMARCUS GARCIA Procedure: XR chest 1V EXAM: XR chest 1V HISTORY: SOB COMPARISON: 01/27/2024 TECHNIQUE: Chest X-ray AP, 1 view FINDINGS: Support devices: None. Lungs/pleura: No consolidation, effusion, or pneumothorax. Heart and mediastinum: Normal contours. Bones: No acute abnormality identified. XR/XR chest 1V Impression: No radiographic evidence of acute cardiopulmonary process. Electronically authenticated by: HOME BEAULIEU Date: 01/31/2024 18:44
--- NOTE | 2024-01-31 17:35 | ED.SOB1 ---
HPI - SOB/Dyspnea General Chief Complaint: Shortness of Breath/Dyspnea Time Seen by Provider: 01/31/24 17:27 Source: patient Mode of arrival: Wheelchair Limitations: no limitations History of Present Illness HPI Narrative: 68-year-old male presents to the emergency department for shortness of breath. He has a history of COPD and was here earlier today. He had minimal shortness of breath then and was given an aerosol treatment and felt much better and he was discharged. He went out to dinner and got short of breath so he came back. No fever or chest pain. Related Data Home Medications Medication Instructions Recorded Confirmed omeprazole 20 mg capsule,delayed 20 mg PO DAILY 10/22/23 01/31/24 release albuterol sulfate 2.5 mg/3 mL 2.5 mg inhalation Q6H PRN 11/02/23 01/31/24 (0.083 %) solution for nebulization shortness of breath or wheezing fluticasone 250 mcg-salmeterol 50 1 inh inhalation BID 12/25/23 01/31/24 mcg/dose blistr powdr for inhalation (Wixela Inhub) tiotropium bromide 2.5 2 inh inhalation BID 12/25/23 01/31/24 mcg/actuation mist for inhalation (Spiriva Respimat) Previous Rx's Medication Instructions Recorded albuterol sulfate 90 mcg/actuation 2 inh inhalation Q6H PRN shortness 12/17/23 aerosol inhaler of breath or wheezing #8.5 grams losartan 100 mg tablet 100 mg PO DAILY #30 tabs 12/27/23 metformin 500 mg tablet 500 mg PO BID #60 tabs 01/30/24 prednisone 10 mg tablet See Rx Instructions .Route 01/31/24 .COMPLEX #30 tabs Allergies Allergy/AdvReac Type Severity Reaction Status Date / Time No Known Drug Allergies Allergy Verified 01/31/24 17:24 Review of Systems ROS Narrative A ten point review of systems is negative except as noted above. [facility] Medical History (Updated 01/31/24 @ 18:35 by Diego Lilly MD) HTN (hypertension) ?I10 - Essential (primary) hypertension (ICD-10) Community acquired pneumonia ?J18.9 - Pneumonia, unspecified organism (ICD-10) Chronic obstructive pulmonary disease ?J44.9 - Chronic obstructive pulmonary disease, unspecified (ICD-10) Acute exacerbation of chronic obstructive pulmonary disease (COPD) ?J44.1 - Chronic obstructive pulmonary disease with (acute) exacerbation (ICD-10) RLL pneumonia ?J18.9 - Pneumonia, unspecified organism (ICD-10) COPD (chronic obstructive pulmonary disease) ?J44.9 - Chronic obstructive pulmonary disease, unspecified (ICD-10) Surgical History (Updated 01/29/24 @ 06:45 by Latonia Martin RN) Hx of tonsillectomy ?Z90.89 - Acquired absence of other organs (ICD-10) Family History (Updated 12/25/23 @ 21:28 by Kym Ordaz) Mother Family history of cancer Family history of hypertension Father Family history of cancer Social History Within the past year, how often did you have a drink containing alcohol: 4 or more times a week Within the past year, how many standard drinks containing alcohol did you have on a typical day: 3 or 4 Within the past year, how often did you have six or more drinks on one occasion: less than monthly Total score: 3 Score interpretation: A score of 4 or more indicates drinking is likely to affect patient's safety. Smoking status: Current every day smoker Non-prescribed substance use: cannabis (any form) Previous occupational history: retired Highest level of school completed/degree received: high school graduate Are you now , , , , never or living with a partner: In a typical week, how many times do you talk on the telephone with family, friends, or neighbors: twice per week How often do you get together with friends or relatives: once per week How often do you attend muslim or mormonism services: never Do you belong to any clubs or organizations such as muslim groups unions, fraternal or athletic groups, or school groups: no Total score: 1 Score interpretation: A score of less than or equal to 1 indicates the most socially isolated. Little interest or pleasure in doing things: several days Feeling down, depressed, or hopeless: not at all Feel stressed/tense/nervous/anxious/difficulty sleeping: not at all Do you think of yourself as: straight/heterosexual Gender Identity: male Exam Narrative Exam Narrative: Nurses note and vital signs reviewed and patient is not hypoxic. General: The patient appears is sitting on a chair in no acute respiratory distress. He is able to speak in full sentences. Skin: Warm, dry, no pallor noted. There is no rash noted. Head: Normocephalic, atraumatic Eye: Normal conjunctiva, no drainage, Ears, Nose, Mouth, and Throat: oral mucosa is moist. Nares patent. Cardiovascular: Regular Rate and Rhythm Respiratory: Patient is in no distress, no accessory muscle use, breath sounds are equal and he has a few rhonchi with good air movement Back: non-tender GI: Soft and Musculoskeletal: The patient has no evidence of calf tenderness, symmetrical pulses noted bilaterally Neurological: A&O, normal speech Psychiatric: Cooperative Constitutional Vital Signs, click to edit/add: Last Vital Signs Temp 98.3 F 01/31/24 17:24 Pulse 112 H 01/31/24 17:24 Resp 20 01/31/24 17:24 BP 178/92 H 01/31/24 17:24 Pulse Ox 95 01/31/24 17:33 O2 Del Method Room Air 01/31/24 17:33 Course Vital Signs Vital signs: Vital Signs Temperature 98.3 F 01/31/24 17:24 Pulse Rate 112 H 01/31/24 17:24 Respiratory Rate 20 01/31/24 17:24 Blood Pressure 178/92 H 01/31/24 17:24 Pulse Oximetry 94 L 01/31/24 17:24 Oxygen Delivery Method Room Air 01/31/24 17:24 Temperature 98.3 F 01/31/24 17:24 Pulse Rate 112 H 01/31/24 17:24 Respiratory Rate 20 01/31/24 17:24 Blood Pressure 178/92 H 01/31/24 17:24 Pulse Oximetry 95 01/31/24 17:33 Oxygen Delivery Method Room Air 01/31/24 17:33 MDM - SOB/Dyspnea MDM Narrative Medical decision making narrative: The patient feels improved after being given IV Solu-Medrol and an aerosol treatment and he is discharged home. He does not feel that he needs to be admitted. Treatment diagnosis and follow-up were discussed with the patient. Differential Diagnosis Differential diagnosis: Likely acute exacerbation of chronic obstructive airways disease and community acquired pneumonia Lab Data Attestation: I reviewed the patient's lab results. Labs: Lab Results 01/31/24 Range/Units 17:42 WBC 13.0 H (4.0-11.0) 10^3/uL RBC 4.51 L (4.70-6.10) 10^6/uL Hgb 13.5 L (14.0-18.0) g/dL Hct 41.5 L (42.0-54.0) % MCV 92.0 (80.0-94.0) fL MCH 29.9 (25.9-34.0) pg MCHC 32.5 (29.9-35.2) g/dL RDW 14.1 (11.0-15.0) % Plt Count 197 (150-450) 10^3/uL MPV 8.7 L (9.5-13.5) fL Neut % (Auto) 72.7 (43.0-75.0) % Lymph % (Auto) 16.4 L (20.5-60.0) % Bailey % (Auto) 6.9 (1.7-12.0) % Eos % (Auto) 3.3 (0.9-7.0) % Baso % (Auto) 0.3 (0.2-2.0) % Neut # (Auto) 9.4 H (1.4-6.5) 10^3/uL Lymph # (Auto) 2.1 (1.2-3.8) 10^3/uL Bailey # (Auto) 0.9 H (0.3-0.8) 10^3/uL Eos # (Auto) 0.4 (0.0-0.7) 10^3/uL Baso # (Auto) 0.0 (0.0-0.1) 10^3/uL Abs Immat Gran (auto) 0.05 H (0.00-0.03) 10^3/uL Imm/Tot Granulo (auto) 0.4 (0.0-0.5) % Sodium 143 (136-145) mmol/L Potassium 3.4 L (3.5-5.1) mmol/L Chloride 104 (98-107) mmol/L Carbon Dioxide 27.9 (21.0-32.0) mmol/L Anion Gap 14.5 BUN 8.0 (7.0-18.0) mg/dL Creatinine 0.97 (0.70-1.30) mg/dL Est GFR ( Amer) >60 (>=60) Est GFR (Non-Af Amer) >60 (>=60) BUN/Creatinine Ratio 8.2 Glucose 295 H (74-106) mg/dL Calcium 8.7 (8.5-10.1) mg/dL Troponin I High Sens 14.4 (4.0-76.1) pg/mL ECG Data Attestation: I personally reviewed and interpreted this ECG as follows: (EKG on my interpretation shows sinus tachycardia with a rate of 109) Discharge Plan Discharge Stand Alone Forms: Portal Instructions Chief Complaint: Shortness of Breath/Dyspnea Clinical Impression: COPD (chronic obstructive pulmonary disease) Patient Disposition: Home, Self-Care Time of Disposition Decision: 18:35 Condition: Good Mode of Transportation: Private Vehicle Prescriptions / Home Meds: New prednisone 10 mg tablet See Rx Instructions .ROUTE .COMPLEX Qty: 30 0RF Rx Instructions: 4 by mouth daily for three days then 3 by mouth daily for three days then 2 by mouth daily for three days then 1 by mouth daily for three days No Action omeprazole 20 mg capsule,delayed release(DR/EC) 20 mg PO DAILY albuterol sulfate 2.5 mg /3 mL (0.083 %) solution for nebulization 2.5 mg inhalation Q6H PRN (Reason: shortness of breath or wheezing) Spiriva Respimat 2.5 mcg/actuation mist 2 inh inhalation BID fluticasone propion-salmeterol [Wixela Inhub] 250-50 mcg/dose blister with device 1 inh inhalation BID losartan 100 mg tablet 100 mg PO DAILY Qty: 30 11RF metformin 500 mg tablet 500 mg PO BID Qty: 60 0RF albuterol sulfate 90 mcg/actuation HFA aerosol inhaler 2 inh inhalation Q6H PRN (Reason: shortness of breath or wheezing) Qty: 8.5 2RF Instructions: COPD (Chronic Obstructive Pulmonary Disease) (ED) Referrals: Physician,Non-Staff, MD [Primary Care Provider] - 1 week
[2024-01-31 17:51] LABS: Basophils Percent Auto 0.3 % (0.2-2.0); Eosinophils Absolute Auto 0.4 10^3/uL (0.0-0.7); Eosinophils Percent Auto 3.3 % (0.9-7.0); Hematocrit 41.5 % (42.0-54.0); Hemoglobin 13.5 g/dL (14.0-18.0); Immature Granulocytes Abs Auto 0.05 10^3/uL (0.00-0.03); Immature Granulocytes Pct Auto 0.4 % (0.0-0.5); Lymphocytes Absolute Auto 2.1 10^3/uL (1.2-3.8); Lymphocytes Percent Auto 16.4 % (20.5-60.0); Mean Corpuscular HGB Conc 32.5 g/dL (29.9-35.2); Mean Corpuscular Hemoglobin 29.9 pg (25.9-34.0); Mean Platelet Volume 8.7 fL (9.5-13.5); Monocytes Absolute Auto 0.9 10^3/uL (0.3-0.8); Monocytes Percent Auto 6.9 % (1.7-12.0); Neutrophils Absolute Auto 9.4 10^3/uL (1.4-6.5); Neutrophils Percent Auto 72.7 % (43.0-75.0); Platelet Count 197 10^3/uL (150-450); Red Blood Count 4.51 10^6/uL (4.70-6.10); Red Cell Distribution Width 14.1 % (11.0-15.0)
[2024-01-31] MEDS: METHYLPREDNISOLONE SOD SUCC PF 125 MG/2 ML VIAL IVP (17:54)
[2024-01-31] MEDS: ALBUTEROL SULFATE 2.5 MG/3 ML VIAL NEB IH (17:56)
[2024-01-31 18:06] LABS: Anion Gap 14.5; BUN Creatinine Ratio 8.2; Calcium 8.7 mg/dL (8.5-10.1); Carbon Dioxide 27.9 mmol/L (21.0-32.0); Chloride 104 mmol/L (98-107); Estimated GFR (African America >60 (>=60); Estimated GFR (Non-African Ame >60 (>=60); Glucose 295 mg/dL (74-106); Potassium 3.4 mmol/L (3.5-5.1); Sodium 143 mmol/L (136-145)
[2024-01-31 18:14] LABS: Troponin I High Sensitivity 14.4 pg/mL (4.0-76.1)
== END 2024-01-31 18:55 | disposition home or self-care (01) ==
PROVIDERS: Emergency Provider Emergency Medicine
DX: J44.9 Chronic obstructive pulmonary disease, unspecified (principal); R06.02 Shortness of breath; I10 Essential (primary) hypertension; F17.200 Nicotine dependence, unspecified, uncomplicated; Z87.01 Personal history of pneumonia (recurrent); Z79.899 Other long term (current) drug therapy; Z90.89 Acquired absence of other organs; F17.210 Nicotine dependence, cigarettes, uncomplicated
CPT/HCPCS: 36415; 71045; 80048; 84484; 85025; 93005; 94640; 96374; 99283; 99285; J2930

== ENCOUNTER 2024-01-31 17:21 | Emergency (ER) | payer MEDICARE, SELFPAY ==
--- OUTSIDE RECORDS SUMMARY | 2024-01-31 17:34 | XMS_ITS | CCD ---
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 Garima Pulliam Basophils/100 WBC (Bld) 0.3 % Normal 0.2-2.0 [facility] Comment on above: Performed By: #### C BC ####[facility] Oibvxvqfry9332 [place], [place] [address]TjAdalberto Pulliam EO # 0.3 103/ul Normal 0.0-0.7 [facility] Comment on above: Performed By: #### C BC ####[facility] Ztdmiboutp4332 [place] [id number]. Garima Pulliam Eosinophils/100 WBC (Bld) 2.8 % Normal 0.9-7.0 [facility] Comment on above: Performed By: #### C BC ####[facility] Lqmudofhau2156 [place] [address]Dr. Garima Pulliam Erythrocyte distribution width (RBC) [Ratio] 13.4 % Normal 11.0-15.0 [facility] Comment on above: Performed By: #### C BC ####[facility] Veft[address]isel[address] [place], [place] [address]Dr. Garima Pulliam Hematocrit (Bld) [Volume fraction] 45.7 % Normal 42.0-54.0 [facility] Comment on above: Performed By: #### C BC ####[facility] Owzhonjnja[address] [place], [place] [address]Dr. Garima Pulliam Hemoglobin (Bld) [Mass/Vol] 15.2 g/dL Normal 14.0-18.0 [facility] Comment on above: Performed By: #### C BC ####[facility] Abjskagvd[address] [place], [place] [address]Dr. Garima Pulliam IG # 0.02 10e3/ul Normal 0.00-0.03 [facility] Comment on above: Performed By: #### C BC ####[facility] Eqfhamstut[address] [place], [place] [address]Dr. Garima Pulliam IG % 0.2 % Normal 0.0-0.5 [facility] Comment on above: Performed By: #### C BC ####[facility] Fbfujvgatz[address] [place], [place] [address]Dr. Garmia Pulliam LYMPH # 2.1 103/ul Normal 1.2-3.8 [facility] Comment on above: Performed By: #### C BC ####[facility] Byughogiev[address] [place], [place] [address]Dr. Garima Pulliam Lymphocytes/100 WBC (Bld) 23.7 % Normal 20.5-60.0 [facility] Comment on above: Performed By: #### C BC ####[facility] Nswgnydort5205 [place] [id number]. Garima Pulliam MANUAL DIFF REQ NO Normal [facility] Comment on above: Performed By: #### C BC ####[facility] Jyhegyrpiw0631 [place] [id number]. Garima Pulliam MCH (RBC) [Entitic mass] 30.4 pg Normal 25.9-34.0 [facility] Comment on above: Performed By: #### C BC ####[facility] Isfb[address]om[address] [place], [place] [id number]. Garima Pulliam MCHC (RBC) [Mass/Vol] 33.3 g/dL Normal 29.9-35.2 [facility] Comment on above: Performed By: #### C BC ####[facility] Nlhz[address]ffys[address] [place], [place] [address]Dr. Garima Pulliam MCV (RBC) [Entitic vol] 91.4 fL Normal 80.0-94.0 [facility] Comment on above: Performed By: #### C BC ####[facility] [address]pxuok[address]cpv[address] [place], [place] [address]Dr. Garima Pulliam MONO # 0.7 103/ul Normal 0.3-0.8 [facility] Comment on above: Performed By: #### C BC ####[facility] Vrxaogapmb[address] [place], [place] [address]Dr. Chapisrenu Pulliam Monocytes/100 WBC (Bld) 8.3 % Normal 1.7-12.0 [facility] Comment on above: Performed By: #### C BC ####[facility] Bhfdxutcoc[address] [place], [place] [id number]. Garima Pulliam NEUT # 5.8 103/ul Normal 1.4-6.5 [facility] Comment on above: Performed By: #### C BC ####[facility] Svblzuyyvl[address] [place], [place] [address]Dr. Garima Pulliam Neutrophils/100 WBC (Bld) 64.7 % Normal 43.0-75.0 [facility] Comment on above: Performed By: #### C BC ####[facility] Xorgnshrfe2988 [place] [id number]. Garima Pulliam Platelet mean volume (Bld) [Entitic vol] 8.6 fL Critically low 9.5-13.5 [facility] Comment on above: Performed By: #### C BC ####[facility] Pmtzdcmrty2035 [place] [address]Dr. Garima Pulliam PLT 230 103/ul Normal 150-450 [facility] Comment on above: Performed By: #### C BC ####[facility] Ovxjhyndax9328 [place] [address]Dr. Garima Pulliam RBC 5.00 106/ul Normal 4.70-6.10 [facility] Comment on above: Performed By: #### C BC ####[facility] Ewfugxtpbs6368 [place] [address]Dr. Garima Pulliam WBC 9.0 103/ul Normal 4.0-11.0 [facility] Comment on above: Performed By: #### C BC ####[facility] Evmnpxcmlg[address] [place], [place] [address]Dr. Garima Pulliam MAGNESIUMon 04-04-2023 Magnesium [Mass/Vol] 1.8 mg/dL Normal 1.8-2.4 [facility] Comment on above: Performed By: #### M G ####[facility] Jdnitanusr[address] [place], [place] [address]Dr. Garima Pulliam PROF 14(COMP METB)on 023 Albumin [Mass/Vol] 3.8 g/dL Normal 3.4-5.0 [facility] Comment on above: Performed By: #### C MP ####[facility] Qhynejtmwy[address] [place], [place] [address]Dr. Garima Pulliam Albumin/Globulin [Mass ratio] 1.2 {ratio} Normal [facility] Comment on above: Performed By: #### C MP ####[facility] Eyasmwmwaq1209 [place] [address]Dr. Garima Pulliam ALP [Catalytic activity/Vol] 84 U/L Normal 46-116 [facility] Comment on above: Performed By: #### C MP ####[facility] Gctxqpyhph7263 [place] [id number]. Garima Pulliam ALT [Catalytic activity/Vol] 31 U/L Normal 16-63 [facility] Comment on above: Performed By: #### C MP ####[facility] Ysmbumrdhs6893 [place] [address]Dr. Garima Pulliam Anion gap [Moles/Vol] 12.2 mmol/L Normal [facility] Comment on above: Performed By: #### C MP ####[facility] Hpvkyzrrxd5426 [place] [phone]. Garima Pulliam AST [Catalytic activity/Vol] 23 U/L Normal 15-37 [facility] Comment on above: Performed By: #### C MP ####[facility] Rpgjzccmhd[address] [place], [place] [address]Dr. Garima Pulliam Bilirubin [Mass/Vol] 0.5 mg/dL Normal 0.2-1.0 [facility] Comment on above: Performed By: #### C MP ####[facility] Iluvtejgic[address] [place], [place] [address]Dr. Garima Pulliam Calcium [Mass/Vol] 9.2 mg/dL Normal 8.5-10.1 [facility] Comment on above: Performed By: #### C MP ####[facility] Lvxdudwzzs[address] [place], [place] [address]Dr. Garima Pulliam Chloride [Moles/Vol] 103 mmol/L Normal 98-107 [facility] Comment on above: Performed By: #### C MP ####[facility] [address]cy[address]fvto[address] [place], [place] [address]Dr. Garima Pulliam CO2 [Moles/Vol] 28.5 mmol/L Normal 21.0-32.0 [facility] Comment on above: Performed By: #### C MP ####[facility] Qdddtmlrvi[address] [place], [place] [address]Dr. Garima Pulliam Creatinine [Mass/Vol] 0.74 mg/dL Normal 0.70-1.30 [facility] Comment on above: Performed By: #### C MP ####[facility] Xokvfmhbvj3042 [place] [address]Dr. Garima Pulliam EGFR-AF ITALIAN >60 Normal >=60 [facility] Comment on above: Performed By: #### C MP ####[facility] Wzloxxcjyg0654 [place] [address]Dr. Garima Pulliam EGFR-NON AF ITALIAN >60 Normal >=60 [facility] Comment on above: Performed By: #### C MP ####[facility] Oulspzuvkm6765 [place] [address]Dr. Garima Pulliam Globulin (S) [Mass/Vol] 3.1 g/dL Normal [facility] Comment on above: Performed By: #### C MP ####[facility] Tkysgalipb5320 [place] [address]Dr. Garima Pulliam Glucose [Mass/Vol] 93 mg/dL Normal 74-106 The [facility] Comment on above: Performed By: #### C MP ####[facility] Ndjlqwvqev8272 [place] [address]Dr. Garima Pulliam Potassium [Moles/Vol] 3.7 mmol/L Normal 3.5-5.1 [facility] Comment on above: Performed By: #### C MP ####[facility] Dokwhnbiev1334 [place] [address]Dr. Garima Pulliam Protein [Mass/Vol] 6.9 g/dL Normal 6.4-8.2 [facility] Comment on above: Performed By: #### C MP ####[facility] Jtarrwzuhm7870 [place] [address]Dr. Garima Pulliam Sodium [Moles/Vol] 140 mmol/L Normal 136-145 [facility] Comment on above: Performed By: #### C MP ####[facility] Vnvdxqpxie5194 [place] [address]Dr. Garima Pulliam Urea nitrogen [Mass/Vol] 8.0 mg/dL Normal 7.0-18.0 [facility] Comment on above: Performed By: #### C MP ####[facility] Kerjxcupsb0838 [place] [address]Dr. Garima Pullima Urea nitrogen/Creatinine [Mass ratio] 10.8 mg/mg Normal [facility] Comment on above: Performed By: #### C MP ####[facility] Wdinfxbdap8539 [place] [address]Dr. Garima Pulliam AMMONIAon 03-30-2023 Ammonia (P) [Moles/Vol] 11 umol/L Normal 11-32 [facility] Comment on above: Performed By: #### A MM ####[facility] Jrwdoeabol[address] [place], [place] [address]Dr. Chapisrenu Pulliam CARDIAC NASH ADMITon 023 CK [Catalytic activity/Vol] 232 U/L Normal 39-308 [facility] Comment on above: Performed By: #### C DAVID, CMADM ####[facility] Tkyyikaeml[address] [place], [place] [address]Dr. Chapisrenu Pulliam CK.MB [Mass/Vol] 4.83 ng/mL Critically high <=3.60 [facility] Comment on above: Performed By: #### C DAVID, CMADM ####[facility] Iaczuumxpe[address] [place], [place] [address]Dr. Garima Pulliam HSTROP 10.5 pg/mL Normal 4.0-76.1 [facility] Comment on above: Result Comment: CUT- OFF POINTS HAVE BEEN ESTABLISHED BASED ON THE FOURTH UNIVERSAL DEFINITIONS OF MYOCARDIALINFARCTION. THE UPPER REFERENCE LIMIT (URL) OF TROPONIN, DEFINED THE 99TH PERCENTILE OFcTnI DISTRIBUTION IN A REFERENCE POPULATION, HAS BEEN CONFIRMED THE DECISION THRESHOLDFOR AK DIAGNOSIS. Performed By: #### C DAVID, CMADM ####[facility] Uyaygeulnw5746 [place] [address]Dr. Chapisrenu Pulliam DORIS 79 ng/mL Normal 16-96 [facility] Comment on above: Performed By: #### C [place]ID, CMADM ####[facility] Opqyvlxtim[address] [place], [place] [address]Dr. Chapisrenu Pulliam CBC AUTO DIFFon 03-30-2023 BASO # 0.0 103/ul Normal 0.0-0.1 [facility] Comment on above: Performed By: #### C BC ####[facility] Wqtdmgjavp5954 [place] [id number]. Garima Pulliam Basophils/100 WBC (Bld) 0.1 % Critically low 0.2-2.0 [facility] Comment on above: Performed By: #### C BC ####[facility] Quekqacrxv9[address] [place], [place] [address]Dr. Garima Pulliam EO # 0.3 103/ul Normal 0.0-0.7 [facility] Comment on above: Performed By: #### C BC ####[facility] Tvlqdxqmpj[address] [place], [place] [address]Dr. Garima Pulliam Eosinophils/100 WBC (Bld) 3.3 % Normal 0.9-7.0 [facility] Comment on above: Performed By: #### C BC ####[facility] Poveguosvd[address] [place], [place] [address]Dr. Garima Pulliam Erythrocyte distribution width (RBC) [Ratio] 13.5 % Normal 11.0-15.0 [facility] Comment on above: Performed By: #### C BC ####[facility] Nwijflpobh[address] [place], [place] [address]Dr. Garima Pulliam Hematocrit (Bld) [Volume fraction] 42.9 % Normal 42.0-54.0 [facility] Comment on above: Performed By: #### C BC ####[facility] Bnzbllppdo[address] [place], [place] [address]Dr. Garima Pulliam Hemoglobin (Bld) [Mass/Vol] 13.9 g/dL Critically low 14.0-18.0 [facility] Comment on above: Performed By: #### C BC ####[facility] Wepdamoleb[address] [place], [place] [address]Dr. Garima Pulliam IG # 0.01 10e3/ul Normal 0.00-0.03 [facility] Comment on above: Performed By: #### C BC ####[facility] Rzhtspjant[address] [place], [place] [address]Dr. Garima Pulliam IG % 0.1 % Normal 0.0-0.5 [facility] Comment on above: Performed By: #### C BC ####[facility] Pkhpdtqrna3308 [place] [address]Dr. Garima Pulliam LYMPH # 1.7 103/ul Normal 1.2-3.8 [facility] Comment on above: Performed By: #### C BC ####[facility] Usvgkryfah4350 [place] [address]Dr. Garima Pulliam Lymphocytes/100 WBC (Bld) 22.8 % Normal 20.5-60.0 [facility] Comment on above: Performed By: #### C BC ####[facility] Zfckykdkwx5183 [place] [address]Dr. Garima Pulliam MANUAL DIFF REQ NO Normal [facility] Comment on above: Performed By: #### C BC ####[facility] Kuevrzufei7146 [place] [address]Dr. Garima Pulliam MCH (RBC) [Entitic mass] 30.5 pg Normal 25.9-34.0 [facility] Comment on above: Performed By: #### C BC ####[facility] Fqoiqykasp1205 [place] [address]Dr. Garima Pulliam MCHC (RBC) [Mass/Vol] 32.4 g/dL Normal 29.9-35.2 [facility] Comment on above: Performed By: #### C BC ####[facility] Ssbyxkmvuv2647 [place] [address]Dr. Garima Pulliam MCV (RBC) [Entitic vol] 94.1 fL Critically high 80.0-94.0 [facility] Comment on above: Performed By: #### C BC ####[facility] Esqkwjgjym6606 [place] [address]Dr. Garima Pulliam MONO # 0.7 103/ul Normal 0.3-0.8 [facility] Comment on above: Performed By: #### C BC ####[facility] Ulgtnennfv3938 [place] [address]Dr. Garima Pulliam Monocytes/100 WBC (Bld) 8.6 % Normal 1.7-12.0 [facility] Comment on above: Performed By: #### C BC ####[facility] Nefwudvdcu5074 [place] [address]Dr. Garima Pulliam NEUT # 4.9 103/ul Normal 1.4-6.5 [facility] Comment on above: Performed By: #### C BC ####[facility] Ycigegjnsl3886 [place] [address]Dr. Garima Pulliam Neutrophils/100 WBC (Bld) 65.1 % Normal 43.0-75.0 [facility] Comment on above: Performed By: #### C BC ####[facility] Eofjlfgnme4338 [place] [address]Dr. Garima Pulliam Platelet mean volume (Bld) [Entitic vol] 8.5 fL Critically low 9.5-13.5 [facility] Comment on above: Performed By: #### C BC ####[facility] Ftejwgbxaz1392 [place] [address]Dr. Garima Pulliam PLT 219 103/ul Normal 150-450 [facility] Comment on above: Performed By: #### C BC ####[facility] Xuldokppss9937 [place] [address]Dr. Garima Pulliam RBC 4.56 106/ul Critically low 4.70-6.10 [facility] Comment on above: Performed By: #### C BC ####[facility] Ctxttlceax9624 [place] [address]Dr. Garima Pulliam WBC 7.6 103/ul Normal 4.0-11.0 [facility] Comment on above: Performed By: #### C BC ####[facility] Pklbffggyv0192 [place] [address]Dr. Garima Pulliam LACTATE/LACTIC ACIDon 2022 Lactate [Moles/Vol] 1.2 mmol/L Normal 0.4-2.0 [facility] Comment on above: Performed By: #### L ACT ####[facility] Vwhzdmgrya6704 [place] [address]Dr. Garima Pulliam MAGNESIUMon 03-30-2023 Magnesium [Mass/Vol] 1.8 mg/dL Normal 1.8-2.4 [facility] Comment on above: Performed By: #### M G ####[facility] Sbptbanudv1582 [place] [address]Dr. Garima Pulliam PROF 14(COMP METB)on 023 Albumin [Mass/Vol] 3.5 g/dL Normal 3.4-5.0 [facility] Comment on above: Performed By: #### C DAV[place], NANCY ####[facility] Qlijtujucp3175 [place] [address]Dr. Garima Pulliam Albumin/Globulin [Mass ratio] 1.2 {ratio} Normal [facility] Comment on above: Performed By: #### C NANCY HERNANDEZ ####[facility] Nlutemqwkl7823 [place] [address]Dr. Garima Pulliam ALP [Catalytic activity/Vol] 85 U/L Normal 46-116 [facility] Comment on above: Performed By: #### Ethan HERNANDEZ, NANCY ####[facility] Rdopicwqbj9101 [place] [address]Dr. Garima Pulliam ALT [Catalytic activity/Vol] 29 U/L Normal 16-63 [facility] Comment on above: Performed By: #### NANCY Long MP ####[facility] Mmgmykloke0054 [place] [address]Dr. Garima Pulliam Anion gap [Moles/Vol] 8.0 mmol/L Normal [facility] Comment on above: Performed By: #### C DAVID, NANCY ####[facility] Giehrzwdnb8423 [place] [address]Dr. Garima Pulliam AST [Catalytic activity/Vol] 18 U/L Normal 15-37 [facility] Comment on above: Performed By: #### C DAVID, NANCY ####[facility] Jzfxyyurnu5133 [place] [address]Dr. Garima Pulliam Bilirubin [Mass/Vol] 0.4 mg/dL Normal 0.2-1.0 [facility] Comment on above: Performed By: #### NANCY Long MP ####[facility] Nasoydmuet4918 [place] [address]Dr. Garima Pulliam Calcium [Mass/Vol] 8.8 mg/dL Normal 8.5-10.1 [facility] Comment on above: Performed By: #### C DAVID, NANCY ####[facility] Lgbgtahvwt7126 [place] [address]Dr. Garima Pulliam Chloride [Moles/Vol] 108 mmol/L Critically high 98-107 [facility] Comment on above: Performed By: #### C DAVID, NANCY ####[facility] Rjfjxejaeb5995 [place] [address]Dr. Garima Pulliam CO2 [Moles/Vol] 29.6 mmol/L Normal 21.0-32.0 [facility] Comment on above: Performed By: #### C DAVID, NANCY ####[facility] Fbzfhggukn9605 [place] [address]Dr. Garima Pulliam Creatinine [Mass/Vol] 0.77 mg/dL Normal 0.70-1.30 [facility] Comment on above: Performed By: #### C DAVID, NANCY ####[facility] Haslfwhomb7316 [place] [address]Dr. Garima Pulliam EGFR-AF ITALIAN >60 Normal >=60 [facility] Comment on above: Performed By: #### C DAVID, NANCY ####[facility] Fkqmlexkgd4201 [place] [address]Dr. Garima Pulliam EGFR-NON AF ITALIAN >60 Normal >=60 [facility] Comment on above: Performed By: #### C DAVID, NANCY ####[facility] Havxprzobj0912 [place] [phone]. Garima Pulliam Globulin (S) [Mass/Vol] 2.8 g/dL Normal [facility] Comment on above: Performed By: #### C DAVID, NANCY ####[facility] Npmdvamurk1491 [place] [address]Dr. Garima Pulliam Glucose [Mass/Vol] 207 mg/dL Critically high 74-106 [facility] Comment on above: Performed By: #### C DAVID, NANCY ####[facility] Gvuwjhzefx2197 [place] [address]Dr. Garima Pulliam Potassium [Moles/Vol] 4.6 mmol/L Normal 3.5-5.1 [facility] Comment on above: Performed By: #### C DAVID, CMADM ####[facility] Pvsnltwjcf0784 [place] [address]Dr. Garima Pulliam Protein [Mass/Vol] 6.3 g/dL Critically low 6.4-8.2 [facility] Comment on above: Performed By: #### C DAVID, CMADM ####[facility] Rxcfjmnwkl2043 [place] [address]Dr. Garima Pulliam Sodium [Moles/Vol] 141 mmol/L Normal 136-145 [facility] Comment on above: Performed By: #### C DAVID, CMADM ####[facility] Mblowhkbls1281 [place] [address]Dr. Chapisrenu Pulliam Urea nitrogen [Mass/Vol] 9.0 mg/dL Normal 7.0-18.0 [facility] Comment on above: Performed By: #### C DAVID, CMADM ####[facility] Spslnkgtuo7929 [place] [address]Dr. Garima Pulliam Urea nitrogen/Creatinine [Mass ratio] 11.7 mg/mg Normal [facility] Comment on above: Performed By: #### C DAVID, CMADM ####[facility] Igkrkhditw6232 [place] [address]Dr. Chapisrenu Pulliam XR CHEST 1 Von 03-30-2023 XR CHEST 1 V Normal [facility] BNPon 03-27-2023 Natriuretic peptide B (Bld) [Mass/Vol] 251.0 pg/mL Normal <=900.0 [facility] Comment on above: Performed By: #### C MP, BNP, LIPID ####[facility] Zvdpsghqgq[address] [place], [place] [address]Dr. Garima Heraclio GLYCOHEMOGLOBIN A1Con 2022 ADA RECOMMENDATION SEE BELOW Normal [facility] Comment on above: Result Comment: ADA RECOMMENDED LIMIT 4.0 - 6.0 ADA THERAPEUTIC TARGET < 7.0 ACTION SUGGESTED > 7.0 Performed By: #### A 1C ####[facility] Wpmhdouybj4300 [place] [address]Dr. Garima Pulliam Glucose [Mass/Vol] 180 mg/dL Normal [facility] Comment on above: Performed By: #### A 1C ####[facility] Ftrxkxndav1202 [place] [address]Dr. Garima Pulliam HbA1c (Bld) [Mass fraction] 7.9 % Critically high 4.5-6.2 [facility] Comment on above: Performed By: #### A 1C ####[facility] Nhamphmbmw[address] [place], [place] [address]Dr. Garima Pulliam HEMOGRAM AND PLATELon 2022 Hematocrit (Bld) [Volume fraction] 45.7 % Normal 42.0-54.0 [facility] Comment on above: Performed By: #### H H ####[facility] Wdupqjdrva[address] [place], [place] [address]Dr. Garima Pulliam Hemoglobin (Bld) [Mass/Vol] 15.1 g/dL Normal 14.0-18.0 [facility] Comment on above: Performed By: #### H H ####[facility] Jrprxbamjo[address] [place], [place] [address]Dr. Garima Pulliam MCH (RBC) [Entitic mass] 30.0 pg Normal 25.9-34.0 [facility] Comment on above: Performed By: #### H H ####[facility] Fhbzobygoy[address] [place], [place] [address]Dr. Garima Pulliam MCHC (RBC) [Mass/Vol] 33.0 g/dL Normal 29.9-35.2 [facility] Comment on above: Performed By: #### H H ####[facility] Fgasrujzks[address] [place], [place] [address]Dr. Garima Pulliam MCV (RBC) [Entitic vol] 90.7 fL Normal 80.0-94.0 [facility] Comment on above: Performed By: #### H H ####[facility] Figwzawhit[address] [place], [place] [address]Dr. Garima Pulliam PLT 222 103/ul Normal 150-450 [facility] Comment on above: Performed By: #### H H ####[facility] Xbrvpjsonk1877 [place] [id number]. Garima Pulliam RBC 5.04 106/ul Normal 4.70-6.10 [facility] Comment on above: Performed By: #### H H ####[facility] Zqwtdtblmh3553 [place] [id number]. Garima Pulliam WBC 8.7 103/ul Normal 4.0-11.0 [facility] Comment on above: Performed By: #### H H ####[facility] Rmcfxsvhim8046 [place] [address]Dr. Garima Pulliam LIPID PROFILEon 03-27-2023 CHOL-HDL RATIO NORM SEE BELOW Normal [facility] Comment on above: Result Comment: 3.3 - 4.4 LOW RISK 4.4 - 7.1 AVERAGE RISK 7.1 - 11.0 MODERATE RISK >11.0 HIGH RISK Performed By: #### C MP, BNP, LIPID ####[facility] Cxwbccdddc1429 [place] [id number]. Garima Pulliam Cholesterol [Mass/Vol] 113 mg/dL Normal <=200 [facility] Comment on above: Performed By: #### C MP, BNP, LIPID ####[facility] Rcytsmmjtm8766 [place] [id number]. Garima Pulliam Cholesterol in HDL [Mass/Vol] 51 mg/dL Normal 40-60 [facility] Comment on above: Performed By: #### C MP, BNP, LIPID ####[facility] Swaarhzogl2757 [place] [id number]. Garima Pulliam Cholesterol in LDL [Mass/Vol] 49.8 mg/dL Normal [facility] Comment on above: Performed By: #### C MP, BNP, LIPID ####[facility] Izkxxaywbi4914 [place] [id number]. Garima Pulliam Cholesterol.total/Cho lesterol in HDL [Mass ratio] 2.2 {ratio} Normal [facility] Comment on above: Performed By: #### C MP, BNP, LIPID ####[facility] Wtrtbbakpe[address] [place] [address]Dr. Garima Pulliam HDL NORMAL > or = 60 mg/dl - LOW CARDIOVASCULAR RISK <40 mg/dl - HIGH CARDIOVASCULAR RISK Normal [facility] Comment on above: Performed By: #### C MP, BNP, LIPID ####[facility] Amxdelvzzo37[address] [place] [address]Dr. Garima Pulliam LDL CALC NORMAL SEE BELOW Normal [facility] Comment on above: Result Comment: <100 mg/dl OPTIMAL 100 - 129 mg/dl NEAR OR ABOVE OPTIMAL 130 - 159 mg/dl BORDERLINE HIGH 160 - 189 mg/dl HIGH >190 mg/dl VERY HIGH Performed By: #### C MP, BNP, LIPID ####[facility] Mggnwjwvlp4[address] [place] [address]Dr. Garima Pulliam Triglyceride [Mass/Vol] 61 mg/dL Normal <=150 [facility] Comment on above: Performed By: #### C MP, BNP, LIPID ####[facility] Wmalmvbqmo10[address] [place] [address]Dr. Garima Pulliam VLDL CALC 12.2 mg/dL Normal [facility] Comment on above: Performed By: #### C MP, BNP, LIPID ####[facility] Oznjyzbebl6726 [place] [address]Dr. Garima Pulliam PROF 14(COMP METB)on 023 Albumin [Mass/Vol] 3.5 g/dL Normal 3.4-5.0 [facility] Comment on above: Performed By: #### C MP, BNP, LIPID ####[facility] Poqqrtqbhl20[address] [place] [address]Dr. Garima Pulliam Albumin/Globulin [Mass ratio] 1.2 {ratio} Normal [facility] Comment on above: Performed By: #### C MP, BNP, LIPID ####[facility] Pcurpzrhzt0526 [place] [address]Dr. Garima Pulliam ALP [Catalytic activity/Vol] 82 U/L Normal 46-116 [facility] Comment on above: Performed By: #### C MP, BNP, LIPID ####[facility] Cvaetcezbc5358 [place] [address]Dr. Garima Pulliam ALT [Catalytic activity/Vol] 33 U/L Normal 16-63 [facility] Comment on above: Performed By: #### C MP, BNP, LIPID ####[facility] Qvzpskxjmf7227 [place] [address]Dr. Garima Pulliam Anion gap [Moles/Vol] 9.9 mmol/L Normal [facility] Comment on above: Performed By: #### C MP, BNP, LIPID ####[facility] Mdbocqatss5045 [place] [address]Dr. Garima Pulliam AST [Catalytic activity/Vol] 24 U/L Normal 15-37 [facility] Comment on above: Performed By: #### C MP, BNP, LIPID ####[facility] Xscbfasjfz8869 [place] [address]Dr. Garima Pulliam Bilirubin [Mass/Vol] 0.6 mg/dL Normal 0.2-1.0 [facility] Comment on above: Performed By: #### C MP, BNP, LIPID ####[facility] Llzuebpjea9499 [place] [address]Dr. Garima Pulliam Calcium [Mass/Vol] 9.2 mg/dL Normal 8.5-10.1 [facility] Comment on above: Performed By: #### C MP, BNP, LIPID ####[facility] Nqxitsyczo8164 [place] [address]Dr. Garima Pulliam Chloride [Moles/Vol] 106 mmol/L Normal 98-107 [facility] Comment on above: Performed By: #### C MP, BNP, LIPID ####[facility] Mkebtosulx[address] [place] [address]Dr. Garima Pulliam CO2 [Moles/Vol] 32.3 mmol/L Critically high 21.0-32.0 [facility] Comment on above: Performed By: #### C MP, BNP, LIPID ####[facility] Vuksqmrxuc9969 [place] [address]Dr. Garima Pulliam Creatinine [Mass/Vol] 0.70 mg/dL Normal 0.70-1.30 [facility] Comment on above: Performed By: #### C MP, BNP, LIPID ####[facility] Ttcnjcaunk6711 [place] [address]Dr. Chapisrenu Heraclio EGFR-AF ITALIAN >60 Normal >=60 [facility] Comment on above: Performed By: #### C MP, BNP, LIPID ####[facility] Otvjpetvyv4535 [place] [address]Dr. Garima Pulliam EGFR-NON AF ITALIAN >60 Normal >=60 [facility] Comment on above: Performed By: #### C MP, BNP, LIPID ####[facility] Awbuzkcqgo9011 [place] [address]Dr. Garima Pulliam Globulin (S) [Mass/Vol] 2.9 g/dL Normal [facility] Comment on above: Performed By: #### C MP, BNP, LIPID ####[facility] Thpykubfqw2719 [place] [address]Dr. Garima Pulliam Glucose [Mass/Vol] 111 mg/dL Critically high 74-106 [facility] Comment on above: Performed By: #### C MP, BNP, LIPID ####[facility] Mmne[address]svdv[address] [place], [place] [address]Dr. Garima Pulliam Potassium [Moles/Vol] 4.2 mmol/L Normal 3.5-5.1 [facility] Comment on above: Performed By: #### C MP, BNP, LIPID ####[facility] Qghbhfsmoy[address] [place], [place] [address]Dr. Garima Pulliam Protein [Mass/Vol] 6.4 g/dL Normal 6.4-8.2 [facility] Comment on above: Performed By: #### C MP, BNP, LIPID ####[facility] Rtwfucyjxv[address] [place], [place] [address]Dr. Garima Pulliam Sodium [Moles/Vol] 144 mmol/L Normal 136-145 [facility] Comment on above: Performed By: #### C MP, BNP, LIPID ####[facility] Ycfdkvtnym349[address] [place], [place] [address]Dr. Garima Pulliam Urea nitrogen [Mass/Vol] 7.0 mg/dL Normal 7.0-18.0 [facility] Comment on above: Performed By: #### C MP, BNP, LIPID ####[facility] Hlnisqnvja[address] [place], [place] [address]Dr. Garima Pulliam Urea nitrogen/Creatinine [Mass ratio] 10.0 mg/mg Normal [facility] Comment on above: Performed By: #### C MP, BNP, LIPID ####[facility] Atwgmgsgzd305[address] [place], [place] [address]Dr. Garima Pulliam BNPon 03-22-2023 Natriuretic peptide B (Bld) [Mass/Vol] 103.0 pg/mL Normal <=900.0 [facility] Comment on above: Performed By: #### B HVAC/R INSTRUCTOR, BMP ####[facility] Qevenbyuwj[address] [place], [place] [address]Dr. Garima Pulliam CBC AUTO DIFFon 03-22-2023 BASO # 0.0 103/ul Normal 0.0-0.1 [facility] Comment on above: Performed By: #### C BC ####[facility] Qzhdbapcyv[address] [place], [place] [address]Dr. Garima Pulliam Basophils/100 WBC (Bld) 0.3 % Normal 0.2-2.0 [facility] Comment on above: Performed By: #### C BC ####[facility] Tcgqeobnpa[address] [place], [place] [address]Dr. Garima Pulliam EO # 0.2 103/ul Normal 0.0-0.7 [facility] Comment on above: Performed By: #### C BC ####[facility] Sxtzfjyxhz[address] [place], [place] [address]Dr. Garima Pulliam Eosinophils/100 WBC (Bld) 2.2 % Normal 0.9-7.0 [facility] Comment on above: Performed By: #### C BC ####[facility] Yibnhvwhbu[address] [place], [place] [address]Dr. Garima Pulliam Erythrocyte distribution width (RBC) [Ratio] 13.2 % Normal 11.0-15.0 [facility] Comment on above: Performed By: #### C BC ####[facility] Yspwcurbaz0557 [place] [address]Dr. Garima Pulliam Hematocrit (Bld) [Volume fraction] 43.4 % Normal 42.0-54.0 [facility] Comment on above: Performed By: #### C BC ####[facility] Diuvfxetqj3828 [place] [address]Dr. Garima Heraclio Hemoglobin (Bld) [Mass/Vol] 14.3 g/dL Normal 14.0-18.0 [facility] Comment on above: Performed By: #### C BC ####[facility] Aooawappnf[address] [place], [place] [address]Dr. Garima Heraclio IG # 0.02 10e3/ul Normal 0.00-0.03 [facility] Comment on above: Performed By: #### C BC ####[facility] Srlghagrck[address] [place], [place] [address]Dr. Garima Pulliam IG % 0.3 % Normal 0.0-0.5 [facility] Comment on above: Performed By: #### C BC ####[facility] Lvngiozqxg[address] [place], [place] [address]Dr. Garima Heraclio LYMPH # 2.0 103/ul Normal 1.2-3.8 [facility] Comment on above: Performed By: #### C BC ####[facility] Xkzqlpyjbo[address] [place], [place] [address]Dr. Chapisrenu Pulliam Lymphocytes/100 WBC (Bld) 24.8 % Normal 20.5-60.0 [facility] Comment on above: Performed By: #### C BC ####[facility] Glpzggjnxr[address] [place], [place] [address]Dr. Chapisrenu Pulliam MANUAL DIFF REQ NO Normal [facility] Comment on above: Performed By: #### C BC ####[facility] Qtwbwospza[address] [place], [place] [address]Dr. Garima Pulliam MCH (RBC) [Entitic mass] 30.0 pg Normal 25.9-34.0 [facility] Comment on above: Performed By: #### C BC ####[facility] Tdlendqvro0355 [place] [id number]. Garima Heraclio MCHC (RBC) [Mass/Vol] 32.9 g/dL Normal 29.9-35.2 [facility] Comment on above: Performed By: #### C BC ####[facility] Oqtqehqucx5766 [place] [id number]. Garima Pulliam MCV (RBC) [Entitic vol] 91.0 fL Normal 80.0-94.0 [facility] Comment on above: Performed By: #### C BC ####[facility] Swkoslulyc[address] [place], [place] [address]Dr. Garima Pulliam MONO # 0.8 103/ul Normal 0.3-0.8 [facility] Comment on above: Performed By: #### C BC ####[facility] Plqwbqhzrn[address] [place], [place] [address]Dr. Garima Pulliam Monocytes/100 WBC (Bld) 9.7 % Normal 1.7-12.0 [facility] Comment on above: Performed By: #### C BC ####[facility] Puidbxmvmh[address] [place], [place] [address]Dr. Garima Pulliam NEUT # 4.9 103/ul Normal 1.4-6.5 [facility] Comment on above: Performed By: #### C BC ####[facility] [address]vztuaqhlg[address] [place], [place] [address]Dr. Garima Pulliam Neutrophils/100 WBC (Bld) 62.7 % Normal 43.0-75.0 [facility] Comment on above: Performed By: #### C BC ####[facility] Owhtsbtfve[address] [place], [place] [address]Dr. Garima Pulliam Platelet mean volume (Bld) [Entitic vol] 8.8 fL Critically low 9.5-13.5 [facility] Comment on above: Performed By: #### C BC ####[facility] Tfruvxdenr[address] [place], [place] [address]Dr. Garima Pulliam PLT 198 103/ul Normal 150-450 [facility] Comment on above: Performed By: #### C BC ####[facility] Tscxucagrd0374 [place] [id number]. Chapisrenu Pulliam RBC 4.77 106/ul Normal 4.70-6.10 [facility] Comment on above: Performed By: #### C BC ####[facility] Oghylnqusf5519 [place] [id number]. Garima Pulliam WBC 7.9 103/ul Normal 4.0-11.0 [facility] Comment on above: Performed By: #### C BC ####[facility] Nrukregqyl7307 [place] [address]Dr. Garima Pulliam D-DIMERon 03-22-2023 D-DIMER 0.85 mg/L FEU Critically high <=0.59 [facility] Comment on above: Performed By: #### D DIM ####[facility] Jqkyvnraat[address] [place], [place] [address]Dr. Garima Pulliam D-DIMER COMMENTS SEE BELOW Normal [facility] Comment on above: [...] generalized hospitalization. Performed By: #### D DIM ####[facility] Izalhiotxn0747 [place] [address]Dr. Garima Pulliam PROF CHEM 8 (BAS METB)on Anion gap [Moles/Vol] 6.9 mmol/L Normal [facility] Comment on above: Performed By: #### B HVAC/R INSTRUCTOR, BMP ####[facility] Ctvatcnkng3087 [place] [address]Dr. Garima Pulliam Calcium [Mass/Vol] 8.9 mg/dL Normal 8.5-10.1 [facility] Comment on above: Performed By: #### B HVAC/R INSTRUCTOR, BMP ####[facility] Ejqibrbmko8526 [place] [phone]. Garima Pulliam Chloride [Moles/Vol] 101 mmol/L Normal 98-107 [facility] Comment on above: Performed By: #### B HVAC/R INSTRUCTOR, BMP ####[facility] Lvkvrxyume4668 [place] [phone]. Garima Pulliam CO2 [Moles/Vol] 30.7 mmol/L Normal 21.0-32.0 [facility] Comment on above: Performed By: #### B HVAC/R INSTRUCTOR, BMP ####[facility] Xglubjdvxc3638 [place] [phone]. Garima Pulliam Creatinine [Mass/Vol] 0.82 mg/dL Normal 0.70-1.30 [facility] Comment on above: Performed By: #### B HVAC/R INSTRUCTOR, BMP ####[facility] Toukkxckoe37[address] [place] [address]Dr. Garima Pulliam EGFR-AF ITALIAN >60 Normal >=60 [facility] Comment on above: Performed By: #### B HVAC/R INSTRUCTOR, BMP ####[facility] Qpvnkjmjjt2008 [place] [address]Dr. Garima Pulliam EGFR-NON AF ITALIAN >60 Normal >=60 [facility] Comment on above: Performed By: #### B HVAC/R INSTRUCTOR, BMP ####[facility] Vlvsubpsko[address] [place], [place] [address]Dr. Garima Pulliam Glucose [Mass/Vol] 339 mg/dL Critically high 74-106 [facility] Comment on above: Performed By: #### B HVAC/R INSTRUCTOR, BMP ####[facility] Cdzguliypa1534 [place] [phone]. Garima Pulliam Potassium [Moles/Vol] 3.6 mmol/L Normal 3.5-5.1 [facility] Comment on above: Performed By: #### B HVAC/R INSTRUCTOR, BMP ####[facility] Ewhbvhnbbv5737 [place] [address]Dr. Garima Pulliam Sodium [Moles/Vol] 135 mmol/L Critically low 136-145 [facility] Comment on above: Performed By: #### B HVAC/R INSTRUCTOR, BMP ####[facility] Mheefhuguw9772 [place] [phone]. Garima Pulliam Urea nitrogen [Mass/Vol] 11.0 mg/dL Normal 7.0-18.0 [facility] Comment on above: Performed By: #### B HVAC/R INSTRUCTOR, BMP ####[facility] Mcrpkbkbgj5573 [place] [phone]. Garima Pulliam Urea nitrogen/Creatinine [Mass ratio] 13.4 mg/mg Normal [facility] Comment on above: Performed By: #### B HVAC/R INSTRUCTOR, BMP ####[facility] Cmkbzfpbci[address] [place], [place] [address]Dr. Garima Pulliam US VERONICA DOP LEG BILon 023 US VERONICA DOP LEG BENOIT Normal [facility] BNPon 03-18-2023 Natriuretic peptide B (Bld) [Mass/Vol] 226.0 pg/mL Normal <=900.0 [facility] Comment on above: Performed By: #### B HVAC/R INSTRUCTOR, BMP ####[facility] Kvztcitkhb046[address] [place], [place] [address]Dr. Garima Pulliam CBC AUTO DIFFon 03-18-2023 BASO # 0.0 103/ul Normal 0.0-0.1 [facility] Comment on above: Performed By: #### C BC ####[facility] Lfitpddljd[address] [place], [place] [address]Dr. Garima Heraclio Basophils/100 WBC (Bld) 0.2 % Normal 0.2-2.0 [facility] Comment on above: Performed By: #### C BC ####[facility] Hiwevgbieq[address] [place], [place] [address]Dr. Garima Pulliam EO # 0.3 103/ul Normal 0.0-0.7 [facility] Comment on above: Performed By: #### C BC ####[facility] Fsxfxjpbjl74[address] [place], [place] [address]Dr. Garima Heraclio Eosinophils/100 WBC (Bld) 2.5 % Normal 0.9-7.0 [facility] Comment on above: Performed By: #### C BC ####[facility] Fnjbhvkjbw380[address] [place], [place] [address]Dr. Garima Pulliam Erythrocyte distribution width (RBC) [Ratio] 13.2 % Normal 11.0-15.0 [facility] Comment on above: Performed By: #### C BC ####[facility] Ymvqjdfkcv9173 [place] [address]Dr. Garima Pulliam Hematocrit (Bld) [Volume fraction] 45.8 % Normal 42.0-54.0 [facility] Comment on above: Performed By: #### C BC ####[facility] Ugsddfjwtr4259 [place] [address]Dr. Garima Pulliam Hemoglobin (Bld) [Mass/Vol] 15.3 g/dL Normal 14.0-18.0 [facility] Comment on above: Performed By: #### C BC ####[facility] Dlywzblawg[address] [place], [place] [address]Dr. Garima Heraclio IG # 0.02 10e3/ul Normal 0.00-0.03 [facility] Comment on above: Performed By: #### C BC ####[facility] Rrnhttvtna[address] [place], [place] [address]Dr. Garima Pulliam IG % 0.2 % Normal 0.0-0.5 [facility] Comment on above: Performed By: #### C BC ####[facility] Ngxwqrnvys[address] [place], [place] [address]Dr. Garima Heraclio LYMPH # 1.8 103/ul Normal 1.2-3.8 [facility] Comment on above: Performed By: #### C BC ####[facility] Rbitlfzxnr7[address] [place], [place] [address]Dr. Chapisrenu Pulliam Lymphocytes/100 WBC (Bld) 18.3 % Critically low 20.5-60.0 [facility] Comment on above: Performed By: #### C BC ####[facility] Gffrwqvace8[address] [place], [place] [address]Dr. Chapisrenu Pulliam MANUAL DIFF REQ NO Normal [facility] Comment on above: Performed By: #### C BC ####[facility] Pkdkjfewrc[address] [place], [place] [address]Dr. Garima Pulliam MCH (RBC) [Entitic mass] 30.5 pg Normal 25.9-34.0 [facility] Comment on above: Performed By: #### C BC ####[facility] Yzelmjeqsx9532 [place] [id number]. Garima Pulliam MCHC (RBC) [Mass/Vol] 33.4 g/dL Normal 29.9-35.2 [facility] Comment on above: Performed By: #### C BC ####[facility] Hrlixodqeo8574 [place] [id number]. Garima Pulliam MCV (RBC) [Entitic vol] 91.2 fL Normal 80.0-94.0 [facility] Comment on above: Performed By: #### C BC ####[facility] Calhiwkywc[address] [place], [place] [address]DrAdalberto Garima Heraclio MONO # 0.8 103/ul Normal 0.3-0.8 [facility] Comment on above: Performed By: #### C BC ####[facility] Gorckaotzg[address] [place], [place] [address]Dr. Garima Heraclio Monocytes/100 WBC (Bld) 7.6 % Normal 1.7-12.0 [facility] Comment on above: Performed By: #### C BC ####[facility] Xuqbvpeelr[address] [place], [place] [address]Dr. Garima Pulliam NEUT # 7.0 103/ul Critically high 1.4-6.5 [facility] Comment on above: Performed By: #### C BC ####[facility] Sxenudbiqq[address] [place], [place] [address]DrAdalberto Garima Heraclio Neutrophils/100 WBC (Bld) 71.2 % Normal 43.0-75.0 [facility] Comment on above: Performed By: #### C BC ####[facility] Yyhbcyigcl[address] [place], [place] [address]Dr. Garima Pulliam Platelet mean volume (Bld) [Entitic vol] 8.9 fL Critically low 9.5-13.5 [facility] Comment on above: Performed By: #### C BC ####[facility] Ucbijnkhpe5173 [place] [id number]. Garima Pulliam PLT 217 103/ul Normal 150-450 [facility] Comment on above: Performed By: #### C BC ####[facility] Vpcmqwpxjo[address] [place], [place] [address]Dr. Garima Pulliam RBC 5.02 106/ul Normal 4.70-6.10 [facility] Comment on above: Performed By: #### C BC ####[facility] Akhiqblugg[address] [place], [place] [address]Dr. Garima Pulliam WBC 9.8 103/ul Normal 4.0-11.0 [facility] Comment on above: Performed By: #### C BC ####[facility] [address]oyqmpfbmv[address] [place], [place] [address]Dr. Garima Heraclio CRPon 03-18-2023 CRP 0.1 mg/dL Normal <=1.0 [facility] Comment on above: Performed By: #### C RP ####[facility] Cfmfnnqrjh[address] [place], [place] [address]Dr. Garima Heraclio PROF CHEM 8 (BAS METB)on Anion gap [Moles/Vol] 10.4 mmol/L Normal [facility] Comment on above: Performed By: #### B HVAC/R INSTRUCTOR, BMP ####[facility] Wfbcqgsjxc[address] [place], [place] [address]Dr. Garima Heraclio Calcium [Mass/Vol] 8.8 mg/dL Normal 8.5-10.1 [facility] Comment on above: Performed By: #### B HVAC/R INSTRUCTOR, BMP ####[facility] Sqqqnphhcv1077 [place] [address]Dr. Garima Pulliam Chloride [Moles/Vol] 97 mmol/L Critically low 98-107 [facility] Comment on above: Performed By: #### B HVAC/R INSTRUCTOR, BMP ####[facility] Uerzxtkaab6354 [place] [address]Dr. Garima Pulliam CO2 [Moles/Vol] 31.2 mmol/L Normal 21.0-32.0 [facility] Comment on above: Performed By: #### B HVAC/R INSTRUCTOR, BMP ####[facility] Gvpqyeuhwm0623 [place] [id number]. Garima Pulliam Creatinine [Mass/Vol] 0.91 mg/dL Normal 0.70-1.30 [facility] Comment on above: Performed By: #### B HVAC/R INSTRUCTOR, BMP ####[facility] Orwavcezhh9894 [place] [id number]. Garima Pulliam EGFR-AF ITALIAN >60 Normal >=60 [facility] Comment on above: Performed By: #### B HVAC/R INSTRUCTOR, BMP ####[facility] Karqcupeua5287 [place] [phone]. Garima Pulliam EGFR-NON AF ITALIAN >60 Normal >=60 [facility] Comment on above: Performed By: #### B HVAC/R INSTRUCTOR, BMP ####[facility] Y[address]whjea[address] [place], [place] [address]Dr. Garima Pulliam Glucose [Mass/Vol] 315 mg/dL Critically high 74-106 [facility] Comment on above: Performed By: #### B HVAC/R INSTRUCTOR, BMP ####[facility] Ptqnkebhye[address] [place], [place] [phone]. Garima Pulliam Potassium [Moles/Vol] 3.6 mmol/L Normal 3.5-5.1 [facility] Comment on above: Performed By: #### B HVAC/R INSTRUCTOR, BMP ####[facility] [address]qzglup[address] [place], [place] [phone]. Garima Pulliam Sodium [Moles/Vol] 135 mmol/L Critically low 136-145 [facility] Comment on above: Performed By: #### B HVAC/R INSTRUCTOR, BMP ####[facility] [address]dpalaaqcg[address] [place], [place] [phone]. Garima Pulliam Urea nitrogen [Mass/Vol] 7.0 mg/dL Normal 7.0-18.0 [facility] Comment on above: Performed By: #### B HVAC/R INSTRUCTOR, BMP ####[facility] [address]vtcs[address] [place], [place] [phone]. Garima Pulliam Urea nitrogen/Creatinine [Mass ratio] 7.7 mg/mg Normal [facility] Comment on above: Performed By: #### B HVAC/R INSTRUCTOR, BMP ####[facility] [address]wr[address]cszvkp[address] [place], [place] [address]Dr. Garima Pulliam SED RATE WESTERGRENon 2022 SED RATE 8 mm/hr Normal <=20 [facility] Comment on above: Performed By: #### S EDR ####[facility] [address]jtjmjjyxj[address] [place], [place] [address]Dr. Garima Pulliam BNPon 03-16-2023 Natriuretic peptide B (Bld) [Mass/Vol] 241.0 pg/mL Normal <=900.0 [facility] Comment on above: Performed By: #### B HVAC/R INSTRUCTOR, BMP, HSTROPN ####[facility] Ixprgeepdv[address] [place], [place] [address]Dr. Garima Heraclio CBC AUTO DIFFon 03-16-2023 BASO # 0.0 103/ul Normal 0.0-0.1 [facility] Comment on above: Performed By: #### C BC ####[facility] Jufyuclmka[address] [place], [place] [address]Dr. Garima Heraclio Basophils/100 WBC (Bld) 0.2 % Normal 0.2-2.0 [facility] Comment on above: Performed By: #### C BC ####[facility] Nfhkrjiofe[address] [place], [place] [address]Dr. Chapisrenu Heraclio EO # 0.2 103/ul Normal 0.0-0.7 [facility] Comment on above: Performed By: #### C BC ####[facility] Cjjwbnbdze[address] [place], [place] [address]Dr. Garima Heraclio Eosinophils/100 WBC (Bld) 2.7 % Normal 0.9-7.0 [facility] Comment on above: Performed By: #### C BC ####[facility] Lgukyvdiml[address] [place], [place] [address]Dr. Garima Heraclio Erythrocyte distribution width (RBC) [Ratio] 13.1 % Normal 11.0-15.0 [facility] Comment on above: Performed By: #### C BC ####[facility] Ioxfiztclr[address] [place], [place] [address]Dr. Garima Heraclio Hematocrit (Bld) [Volume fraction] 41.8 % Critically low 42.0-54.0 [facility] Comment on above: Performed By: #### C BC ####[facility] [address]bx[address]zlcfma[address] [place] [address]DrAdalberto Garima Pulliam Hemoglobin (Bld) [Mass/Vol] 14.0 g/dL Normal 14.0-18.0 [facility] Comment on above: Performed By: #### C BC ####[facility] Iwinwyrreu5[address] [place] [address]DrAdalberto Pulliam IG # 0.03 10e3/ul Normal 0.00-0.03 [facility] Comment on above: Performed By: #### C BC ####[facility] Wnwirjubnm7[address] [place], [place] [address]DrAdalebrto Chapisrenu Pulliam IG % 0.3 % Normal 0.0-0.5 [facility] Comment on above: Performed By: #### C BC ####[facility] Fqxiviasuj[address] [place], [place] [address]DrAdalberto Chapisrenu Pulliam LYMPH # 2.1 103/ul Normal 1.2-3.8 [facility] Comment on above: Performed By: #### C BC ####[facility] Irqykovliy[address] [place], [place] [address]DrAdalberto Chapisrenu Pulliam Lymphocytes/100 WBC (Bld) 24.2 % Normal 20.5-60.0 [facility] Comment on above: Performed By: #### C BC ####[facility] Urijhixzyz13[address] [place], [place] [address]DrAdalberto Pulliam MANUAL DIFF REQ NO Normal [facility] Comment on above: Performed By: #### C BC ####[facility] Csjgeehaou99[address] [place], [place] [address]DrAdalberto Pulliam MCH (RBC) [Entitic mass] 30.2 pg Normal 25.9-34.0 [facility] Comment on above: Performed By: #### C BC ####[facility] Gmytrdvywm72[address] [place], [place] [address]DrAdalberto Pulliam MCHC (RBC) [Mass/Vol] 33.5 g/dL Normal 29.9-35.2 [facility] Comment on above: Performed By: #### C BC ####[facility] Ubwpntuxef[address] [place], [place] [address]DrAdalberto Pulliam MCV (RBC) [Entitic vol] 90.1 fL Normal 80.0-94.0 [facility] Comment on above: Performed By: #### C BC ####[facility] Lpnmzlanpu[address] [place], [place] [address]DrAdalberto Pulliam MONO # 0.6 103/ul Normal 0.3-0.8 [facility] Comment on above: Performed By: #### C BC ####[facility] Zephosauvw9[address] [place], [place] [address]DrAdalberto Pulliam Monocytes/100 WBC (Bld) 7.4 % Normal 1.7-12.0 [facility] Comment on above: Performed By: #### C BC ####[facility] Didzkdnrij6434[address] [place], [place] [address]DrAdalberto Pulliam NEUT # 5.6 103/ul Normal 1.4-6.5 [facility] Comment on above: Performed By: #### C BC ####[facility] Nynquezpjq678[address] [place], [place] [address]DrAdalberto Pulliam Neutrophils/100 WBC (Bld) 65.2 % Normal 43.0-75.0 [facility] Comment on above: Performed By: #### C BC ####[facility] Sfaqharsxu457[address] [place], [place] [address]DrAdalberto Pulliam Platelet mean volume (Bld) [Entitic vol] 8.7 fL Critically low 9.5-13.5 [facility] Comment on above: Performed By: #### C BC ####[facility] Lbpglkbrja230[address] [place], [place] [address]DrAdalberto Pulliam PLT 195 103/ul Normal 150-450 [facility] Comment on above: Performed By: #### C BC ####[facility] Wlpjzytbza29[address] [place], [place] [address]DrAdalberto Pulliam RBC 4.64 106/ul Critically low 4.70-6.10 [facility] Comment on above: Performed By: #### C BC ####[facility] Rrvhpitxlj6218[address] [place], [place] [address]Dr. Chapisrenu Pulliam WBC 8.6 103/ul Normal 4.0-11.0 [facility] Comment on above: Performed By: #### C BC ####[facility] Banmrndvpw5210[address] [place], [place] [address]Dr. Garima Pulliam PROF CHEM 8 (BAS METB)on Anion gap [Moles/Vol] 6.7 mmol/L Normal [facility] Comment on above: Performed By: #### B HVAC/R INSTRUCTOR, BMP, HSTROPN ####[facility] Zzfqdgzcyc269[address] [place], [place] [address]Dr. Garima Pulliam Calcium [Mass/Vol] 8.8 mg/dL Normal 8.5-10.1 [facility] Comment on above: Performed By: #### B HVAC/R INSTRUCTOR, BMP, HSTROPN ####[facility] Ltvrplikmc[address] [place], [place] [address]Dr. Garima Pulliam Chloride [Moles/Vol] 106 mmol/L Normal 98-107 [facility] Comment on above: Performed By: #### B HVAC/R INSTRUCTOR, BMP, HSTROPN ####[facility] Ldbbtwnfad430[address] [place], [place] [address]Dr. Garima Pulliam CO2 [Moles/Vol] 31.4 mmol/L Normal 21.0-32.0 [facility] Comment on above: Performed By: #### B HVAC/R INSTRUCTOR, BMP, HSTROPN ####[facility] Uortwkjzsl[address] [place], [place] [address]Dr. Garima Pulliam Creatinine [Mass/Vol] 0.75 mg/dL Normal 0.70-1.30 [facility] Comment on above: Performed By: #### B HVAC/R INSTRUCTOR, BMP, HSTROPN ####[facility] Vzpeulptpr95[address] [place], [place] [address]Dr. Garima Pulliam EGFR-AF ITALIAN >60 Normal >=60 [facility] Comment on above: Performed By: #### B HVAC/R INSTRUCTOR, BMP, HSTROPN ####[facility] Tx[address]icbryp64[address] [place] [address]Dr. Garima Pulliam EGFR-NON AF ITALIAN >60 Normal >=60 [facility] Comment on above: Performed By: #### B HVAC/R INSTRUCTOR, BMP, HSTROPN ####[facility] Mumjvahsli[address] [place] [address]Dr. Garima Pulliam Glucose [Mass/Vol] 161 mg/dL Critically high 74-106 [facility] Comment on above: Performed By: #### B HVAC/R INSTRUCTOR, BMP, HSTROPN ####[facility] Ueoveatkuk[address] [place] [address]Dr. Garima Pulliam Potassium [Moles/Vol] 4.1 mmol/L Normal 3.5-5.1 [facility] Comment on above: Performed By: #### B HVAC/R INSTRUCTOR, BMP, HSTROPN ####[facility] Aqqnsesxll0809 [place] [address]Dr. Garima Pulliam Sodium [Moles/Vol] 140 mmol/L Normal 136-145 [facility] Comment on above: Performed By: #### B HVAC/R INSTRUCTOR, BMP, HSTROPN ####[facility] Xznnvjxlrq7804 [place] [address]Dr. Garima Pulliam Urea nitrogen [Mass/Vol] 7.0 mg/dL Normal 7.0-18.0 [facility] Comment on above: Performed By: #### B HVAC/R INSTRUCTOR, BMP, HSTROPN ####[facility] Faupxtsurq[address] [place] [address]Dr. Garima Pulliam Urea nitrogen/Creatinine [Mass ratio] 9.3 mg/mg Normal [facility] Comment on above: Performed By: #### B HVAC/R INSTRUCTOR, BMP, HSTROPN ####[facility] Hpfmaphtfe[address] [place], [place] [address]Dr. Garima Pulliam TROPONIN, HIGH SENSITIVITYon 03-16-2023 HSTROP 9.7 pg/mL Normal 4.0-76.1 [facility] Comment on above: Result Comment: CUT- OFF POINTS HAVE BEEN ESTABLISHED BASED ON THE FOURTH UNIVERSAL DEFINITIONS OF MYOCARDIALINFARCTION. THE UPPER REFERENCE LIMIT (URL) OF TROPONIN, DEFINED THE 99TH PERCENTILE OFcTnI DISTRIBUTION IN A REFERENCE POPULATION, HAS BEEN CONFIRMED THE DECISION THRESHOLDFOR AK DIAGNOSIS. Performed By: #### B HVAC/R INSTRUCTOR, BMP, HSTROPN ####[facility] Sxzlgwjhla[address] [place] [address]Dr. Garima Pulliam XR CHEST 1 Von 03-16-2023 XR CHEST 1 V Normal [facility] BNPon 03-06-2023 Natriuretic peptide B (Bld) [Mass/Vol] 111.0 pg/mL Normal <=900.0 [facility] Comment on above: Performed By: #### C MP, BNP, CK ####[facility] Bmfisxbgeo[address] [place], [place] [address]Dr. Garima Pulliam CBC AUTO DIFFon 03-06-2023 BASO # 0.0 103/ul Normal 0.0-0.1 [facility] Comment on above: Performed By: #### C BC ####[facility] Mgxwzrumlt387[address] [place], [place] [address]Dr. Garima Heraclio Basophils/100 WBC (Bld) 0.2 % Normal 0.2-2.0 [facility] Comment on above: Performed By: #### C BC ####[facility] Fpeoubnzvs[address] [place], [place] [address]Dr. Garima Pulliam EO # 0.3 103/ul Normal 0.0-0.7 [facility] Comment on above: Performed By: #### C BC ####[facility] Fcbripbzwb[address] [place], [place] [address]Dr. Garima Heraclio Eosinophils/100 WBC (Bld) 3.5 % Normal 0.9-7.0 [facility] Comment on above: Performed By: #### C BC ####[facility] Opefvajxkp[address] [place], [place] [address]Dr. Garima Pulliam Erythrocyte distribution width (RBC) [Ratio] 13.3 % Normal 11.0-15.0 [facility] Comment on above: Performed By: #### C BC ####[facility] Vgyeunfqfh46[address] [place], [place] [address]Dr. Garima Pulliam Hematocrit (Bld) [Volume fraction] 43.7 % Normal 42.0-54.0 [facility] Comment on above: Performed By: #### C BC ####[facility] Nzqmlckqdl5[address] [place] [address]Dr. Garima Pulliam Hemoglobin (Bld) [Mass/Vol] 14.7 g/dL Normal 14.0-18.0 [facility] Comment on above: Performed By: #### C BC ####[facility] Wwaqraftkd[address] [place] [address]Dr. Garima Pulliam IG # 0.03 10e3/ul Normal 0.00-0.03 [facility] Comment on above: Performed By: #### C BC ####[facility] Ymijxqjrrz1622 [place] [address]Dr. Garima Pulliam IG % 0.4 % Normal 0.0-0.5 [facility] Comment on above: Performed By: #### C BC ####[facility] Hntczvdogg[address] [place], [place] [address]Dr. Garima Pulliam LYMPH # 2.0 103/ul Normal 1.2-3.8 [facility] Comment on above: Performed By: #### C BC ####[facility] Rapxjmrugq30[address] [place], [place] [address]Dr. Garima Pulliam Lymphocytes/100 WBC (Bld) 23.7 % Normal 20.5-60.0 [facility] Comment on above: Performed By: #### C BC ####[facility] Xpbtvwyurg4626[address] [place], [place] [address]Dr. Garima Pulliam MANUAL DIFF REQ NO Normal [facility] Comment on above: Performed By: #### C BC ####[facility] Jhykgkfmjl70[address] [place] [address]Dr. Garima Pulliam MCH (RBC) [Entitic mass] 30.1 pg Normal 25.9-34.0 [facility] Comment on above: Performed By: #### C BC ####[facility] Jhwhevbkov757[address] [place], [place] [address]Dr. Garima Pulliam MCHC (RBC) [Mass/Vol] 33.6 g/dL Normal 29.9-35.2 [facility] Comment on above: Performed By: #### C BC ####[facility] Hiwwmxfuom45[address] [place] [address]DrAdalberto Pulliam MCV (RBC) [Entitic vol] 89.4 fL Normal 80.0-94.0 [facility] Comment on above: Performed By: #### C BC ####[facility] Vkzqigqhpd[address] [place], [place] [address]DrAdalberto Pulliam MONO # 0.8 103/ul Normal 0.3-0.8 [facility] Comment on above: Performed By: #### C BC ####[facility] Aosqqynkrn66[address] [place], [place] [address]DrAdalberto Pulliam Monocytes/100 WBC (Bld) 9.0 % Normal 1.7-12.0 [facility] Comment on above: Performed By: #### C BC ####[facility] Fhiqlbbihk6525[address] [place], [place] [address]Dr. Garima Pulliam NEUT # 5.4 103/ul Normal 1.4-6.5 [facility] Comment on above: Performed By: #### C BC ####[facility] Ujiodiegyg[address] [place], [place] [address]DrAdalberto Pulliam Neutrophils/100 WBC (Bld) 63.2 % Normal 43.0-75.0 [facility] Comment on above: Performed By: #### C BC ####[facility] Spbngomlmm[address] [place], [place] [address]DrAdalberto Pulliam Platelet mean volume (Bld) [Entitic vol] 9.0 fL Critically low 9.5-13.5 [facility] Comment on above: Performed By: #### C BC ####[facility] Gwxpdriyfr[address] [place], [place] [address]DrAdalberto Pulliam PLT 218 103/ul Normal 150-450 [facility] Comment on above: Performed By: #### C BC ####[facility] Ouovqgkkwr[address] [place], [place] [address]DrAdalberto Pulliam RBC 4.89 106/ul Normal 4.70-6.10 [facility] Comment on above: Performed By: #### C BC ####[facility] Soiuinkofu[address] [place] [address]Dr. Garima Pulliam WBC 8.5 103/ul Normal 4.0-11.0 [facility] Comment on above: Performed By: #### C BC ####[facility] Kydbalwxlj[address] [place] [address]Dr. Garima Heraclio CPKon 03-06-2023 CK [Catalytic activity/Vol] 191 U/L Normal 39-308 [facility] Comment on above: Performed By: #### C MP, BNP, CK ####[facility] Mzfrpdjnoc[address] [place], [place] [address]Dr. Garima Pulliam PROF 14(COMP METB)on 023 Albumin [Mass/Vol] 3.6 g/dL Normal 3.4-5.0 [facility] Comment on above: Performed By: #### C MP, BNP, CK ####[facility] Rsiacicvel[address] [place] [address]Dr. Garima Pulliam Albumin/Globulin [Mass ratio] 1.2 {ratio} Normal [facility] Comment on above: Performed By: #### C MP, BNP, CK ####[facility] Gackdlfrio[address] [place] [address]Dr. Garima Pulliam ALP [Catalytic activity/Vol] 91 U/L Normal 46-116 [facility] Comment on above: Performed By: #### C MP, BNP, CK ####[facility] Gecyszkicn25[address] [place] [address]Dr. Garima Pulliam ALT [Catalytic activity/Vol] 33 U/L Normal 16-63 [facility] Comment on above: Performed By: #### C MP, BNP, CK ####[facility] Uvblkcrdxi9[address] [place] [address]Dr. Garima Pulliam Anion gap [Moles/Vol] 10.3 mmol/L Normal [facility] Comment on above: Performed By: #### C MP, BNP, CK ####[facility] Edwurinior5314 [place] [address]Dr. Garima Pulliam AST [Catalytic activity/Vol] 17 U/L Normal 15-37 [facility] Comment on above: Performed By: #### C MP, BNP, CK ####[facility] Bgwhajiwwb55[address] [place] [address]Dr. Garima Pulliam Bilirubin [Mass/Vol] 0.4 mg/dL Normal 0.2-1.0 [facility] Comment on above: Performed By: #### C MP, BNP, CK ####[facility] Aspebveoib16[address] [place] [address]Dr. Garima Pulliam Calcium [Mass/Vol] 9.1 mg/dL Normal 8.5-10.1 [facility] Comment on above: Performed By: #### C MP, BNP, CK ####[facility] Xiihkqkhvw[address] [place], [place] [address]Dr. Garima Pulliam Chloride [Moles/Vol] 102 mmol/L Normal 98-107 [facility] Comment on above: Performed By: #### C MP, BNP, CK ####[facility] Glrxvqcsgk5275 [place] [address]Dr. Garima Pulliam CO2 [Moles/Vol] 29.7 mmol/L Normal 21.0-32.0 [facility] Comment on above: Performed By: #### C MP, BNP, CK ####[facility] Gxkzenjgre86[address] [place] [address]Dr. Garima Pulliam Creatinine [Mass/Vol] 0.79 mg/dL Normal 0.70-1.30 [facility] Comment on above: Performed By: #### C MP, BNP, CK ####[facility] [address]wtfakzufo[address] [place] [address]Dr. Garima Pulliam EGFR-AF ITALIAN >60 Normal >=60 [facility] Comment on above: Performed By: #### C MP, BNP, CK ####[facility] Aqbdlqeivg[address] [place] [address]Dr. Garima Pulliam EGFR-NON AF ITALIAN >60 Normal >=60 [facility] Comment on above: Performed By: #### C MP, BNP, CK ####[facility] Spkvfzlnde[address] [place] [address]Dr. Garima Pulliam Globulin (S) [Mass/Vol] 3.0 g/dL Normal [facility] Comment on above: Performed By: #### C MP, BNP, CK ####[facility] Shlokbxtem[address] [place] [address]Dr. Garima Pulliam Glucose [Mass/Vol] 202 mg/dL Critically high 74-106 T [facility] Comment on above: Performed By: #### C MP, BNP, CK ####[facility] Ispakrziwm[address] [place], [place] [address]Dr. Garima Pulliam Potassium [Moles/Vol] 4.0 mmol/L Normal 3.5-5.1 [facility] Comment on above: Performed By: #### C MP, BNP, CK ####[facility] Gbkfszthus[address] [place], [place] [address]Dr. Garima Pulliam Protein [Mass/Vol] 6.6 g/dL Normal 6.4-8.2 The [facility] Comment on above: Performed By: #### C MP, BNP, CK ####[facility] Prfprcvlzv[address] [place], [place] [address]Dr. Garima Pulliam Sodium [Moles/Vol] 138 mmol/L Normal 136-145 [facility] Comment on above: Performed By: #### C MP, BNP, CK ####[facility] Nleygwrsju9[address] [place], [place] [address]Dr. Garima Pulliam Urea nitrogen [Mass/Vol] 10.0 mg/dL Normal 7.0-18.0 [facility] Comment on above: Performed By: #### C MP, BNP, CK ####[facility] Yctnefjkyb[address] [place], [place] [address]Dr. Garima Pulliam Urea nitrogen/Creatinine [Mass ratio] 12.7 mg/mg Normal [facility] Comment on above: Performed By: #### C MP, BNP, CK ####[facility] Xrdmnaymtj[address] [place], [place] [address]DrAdalberto Pulliam US VERONICA DOP LEG BILon 023 US VERONICA DOP LEG BENOIT Normal The [facility] CBC AUTO DIFFon 01-13-2023 BASO # 0.0 103/ul Normal 0.0-0.1 [facility] Comment on above: Performed By: #### C BC ####[facility] Coikkhfmov26[address] [place] [address]DrAdalberto Pulliam Basophils/100 WBC (Bld) 0.0 % Critically low 0.2-2.0 [facility] Comment on above: Performed By: #### C BC ####[facility] Wbrnbxuurp9171 [place] [address]DrAdalberto Pulliam EO # 0.0 103/ul Normal 0.0-0.7 [facility] Comment on above: Performed By: #### C BC ####[facility] Nlywmdleij5014 [place] [address]DrAdalberto Pulliam Eosinophils/100 WBC (Bld) 0.0 % Critically low 0.9-7.0 [facility] Comment on above: Performed By: #### C BC ####[facility] Olnqvheepg6276 [place] [address]DrAdalberto Pulliam Erythrocyte distribution width (RBC) [Ratio] 13.2 % Normal 11.0-15.0 [facility] Comment on above: Performed By: #### C BC ####[facility] Doaharrmie8518 [place] [address]DrAdalberto Pulliam Hematocrit (Bld) [Volume fraction] 46.7 % Normal 42.0-54.0 [facility] Comment on above: Performed By: #### C BC ####[facility] Otzseyjehe6017 [place] [address]DrAdalberto Pulliam Hemoglobin (Bld) [Mass/Vol] 15.6 g/dL Normal 14.0-18.0 [facility] Comment on above: Performed By: #### C BC ####[facility] Yvuhumdmsf8162 [place] [address]DrAdalberto Pulliam IG # 0.01 10e3/ul Normal 0.00-0.03 [facility] Comment on above: Performed By: #### C BC ####[facility] Hzjfppslbn3372 [place] [address]DrAdalberto Chapisrenu Pulliam IG % 0.2 % Normal 0.0-0.5 [facility] Comment on above: Performed By: #### C BC ####[facility] Esgqyxfszw0137 [place] [id number] Chapisrenu Pulliam LYMPH # 0.8 103/ul Critically low 1.2-3.8 [facility] Comment on above: Performed By: #### C BC ####[facility] Emwpmpxugj0334 [place] [address]DrAdalberto Pulliam Lymphocytes/100 WBC (Bld) 12.7 % Critically low 20.5-60.0 [facility] Comment on above: Performed By: #### C BC ####[facility] Vulyitihvz5343 [place] [address]DrAdalberto Pulliam MANUAL DIFF REQ NO Normal [facility] Comment on above: Performed By: #### C BC ####[facility] Fdcjcmecrl8491 [place] [id number] Garima Heraclio MCH (RBC) [Entitic mass] 30.2 pg Normal 25.9-34.0 [facility] Comment on above: Performed By: #### C BC ####[facility] Kuzuioztox3373 [place] [address]DrAdalberto Chapisrenu Pulliam MCHC (RBC) [Mass/Vol] 33.4 g/dL Normal 29.9-35.2 [facility] Comment on above: Performed By: #### C BC ####[facility] Lbzipluoao8689 [place] [id number] Pulliam MCV (RBC) [Entitic vol] 90.3 fL Normal 80.0-94.0 [facility] Comment on above: Performed By: #### C BC ####[facility] Eeqsbgoytl5575 [place] [id number] Pulliam MONO # 0.1 103/ul Critically low 0.3-0.8 [facility] Comment on above: Performed By: #### C BC ####[facility] Nnwyawlzxx7379 [place] [address]Dr. Garima Pulliam Monocytes/100 WBC (Bld) 0.9 % Critically low 1.7-12.0 [facility] Comment on above: Performed By: #### C BC ####[facility] Twigzutbip80[address] [place] [address]Dr. Garima Pulliam NEUT # 5.6 103/ul Normal 1.4-6.5 [facility] Comment on above: Performed By: #### C BC ####[facility] Olpegyjayr1830 [place] [address]Dr. Garima Pulliam Neutrophils/100 WBC (Bld) 86.2 % Critically high 43.0-75.0 [facility] Comment on above: Performed By: #### C BC ####[facility] Wrtztpxuqp0238 [place] [address]Dr. Garima Pulliam Platelet mean volume (Bld) [Entitic vol] 9.1 fL Critically low 9.5-13.5 [facility] Comment on above: Performed By: #### C BC ####[facility] Eoaecsnvij[address] [place], [place] [address]Dr. Garima Pulliam PLT 169 103/ul Normal 150-450 [facility] Comment on above: Performed By: #### C BC ####[facility] Qttlsxiiue6258 [place] [address]Dr. Garima Pulliam RBC 5.17 106/ul Normal 4.70-6.10 [facility] Comment on above: Performed By: #### C BC ####[facility] Hprixmqbdu3346 [place] [id number]. Garima Pulliam WBC 6.5 103/ul Normal 4.0-11.0 [facility] Comment on above: Performed By: #### C BC ####[facility] Grflninhli[address] [place], [place] [address]Dr. Garmia Pulliam D-DIMERon 01-13-2023 D-DIMER 0.41 mg/L FEU Normal <=0.59 [facility] Comment on above: Performed By: #### D DIM ####[facility] Aovwjdoeia6574 [place] [address]Dr. Garima Pulliam D-DIMER COMMENTS SEE BELOW Normal [facility] Comment on above: Result Comment: Incr [...] generalized hospitalization. Performed By: #### D DIM ####[facility] Vznrgfefsl8216 [place] [address]Dr. Garima Pulliam PROF 14(COMP METB)on 023 Albumin [Mass/Vol] 3.4 g/dL Normal 3.4-5.0 [facility] Comment on above: Performed By: #### C MP ####[facility] Jvwprzazqp9132 [place] [address]Dr. Garima Pulliam Albumin/Globulin [Mass ratio] 1.3 {ratio} Normal [facility] Comment on above: Performed By: #### C MP ####[facility] Rmilxdraaa[address] [place] [address]Dr. Garima Pulliam ALP [Catalytic activity/Vol] 83 U/L Normal 46-116 [facility] Comment on above: Performed By: #### C MP ####[facility] Pefkcctwqe2666 [place] [address]Dr. Garima Pulliam ALT [Catalytic activity/Vol] 25 U/L Normal 16-63 [facility] Comment on above: Performed By: #### C MP ####[facility] Kyegjncaes4640 [place] [address]Dr. Garima Pulliam Anion gap [Moles/Vol] 14.5 mmol/L Normal [facility] Comment on above: Performed By: #### C MP ####[facility] Lxedpnyfzf1236 [place] [id number]. Garima Pulliam AST [Catalytic activity/Vol] 19 U/L Normal 15-37 [facility] Comment on above: Performed By: #### C MP ####[facility] Uxbxymozuj0050 [place] [id number]. Garima Pulliam Bilirubin [Mass/Vol] 0.4 mg/dL Normal 0.2-1.0 [facility] Comment on above: Performed By: #### C MP ####[facility] Tnjivopthm1962 [place] [id number]. Garima Pulliam Calcium [Mass/Vol] 8.7 mg/dL Normal 8.5-10.1 [facility] Comment on above: Performed By: #### C MP ####[facility] Ahrvrgqzjn6354 [place] [id number]. Garima Pulliam Chloride [Moles/Vol] 104 mmol/L Normal 98-107 [facility] Comment on above: Performed By: #### C MP ####[facility] Diyukmtosx6931 [place] [id number]. Garima Pulliam CO2 [Moles/Vol] 24.5 mmol/L Normal 21.0-32.0 [facility] Comment on above: Performed By: #### C MP ####[facility] Coaoozfnkn8021 [place] [id number]. Garima Pulliam Creatinine [Mass/Vol] 0.70 mg/dL Normal 0.70-1.30 [facility] Comment on above: Performed By: #### C MP ####[facility] Oswlyiotgm1197 [place] [id number]. Garima Pulliam EGFR-AF ITALIAN >60 Normal >=60 [facility] Comment on above: Performed By: #### C MP ####[facility] Nbrujhgdub3006 [place] [id number]. Garima Pulliam EGFR-NON AF ITALIAN >60 Normal >=60 [facility] Comment on above: Performed By: #### C MP ####[facility] Eatynoqxob[address] [place], [place] [id number]. Garima Pulliam Globulin (S) [Mass/Vol] 2.6 g/dL Normal [facility] Comment on above: Performed By: #### C MP ####[facility] Urjjzvepls[address] [place], [place] [address]Dr. Garima Pulliam Glucose [Mass/Vol] 196 mg/dL Critically high 74-106 T [facility] Comment on above: Performed By: #### C MP ####[facility] Aovkmuppno[address] [place], [place] [address]Dr. Garima Pulliam Potassium [Moles/Vol] 4.0 mmol/L Normal 3.5-5.1 [facility] Comment on above: Performed By: #### C MP ####[facility] Hmawlwefan[address] [place], [place] [address]Dr. Garima Pulliam Protein [Mass/Vol] 6.0 g/dL Critically low 6.4-8.2 [facility] Comment on above: Performed By: #### C MP ####[facility] Rmiivipdbt[address] [place], [place] [address]Dr. Garima Pulliam Sodium [Moles/Vol] 139 mmol/L Normal 136-145 [facility] Comment on above: Performed By: #### C MP ####[facility] Smaaczjaid350[address] [place], [place] [address]Dr. Garima Pulliam Urea nitrogen [Mass/Vol] 7.0 mg/dL Normal 7.0-18.0 [facility] Comment on above: Performed By: #### C MP ####[facility] Glrebtcgea[address] [place], [place] [address]Dr. Garima Pulliam Urea nitrogen/Creatinine [Mass ratio] 10.0 mg/mg Normal [facility] Comment on above: Performed By: #### C MP ####[facility] Femqjezinj455[address] [place], [place] [address]Dr. Garima Pulliam BNPon 01-12-2023 Natriuretic peptide B (Bld) [Mass/Vol] 141.0 pg/mL Normal <=900.0 [facility] Comment on above: Performed By: #### C MP, BNP, HSTROPN ####[facility] Uslqsphizz8191 [place] [phone]. Garima Heraclio CBC AUTO DIFFon 01-12-2023 BASO # 0.0 103/ul Normal 0.0-0.1 [facility] Comment on above: Performed By: #### C BC ####[facility] Zqnkyrpiqm[address] [place], [place] [id number]. Garima Pulliam Basophils/100 WBC (Bld) 0.2 % Normal 0.2-2.0 [facility] Comment on above: Performed By: #### C BC ####[facility] Qydmkvdvzd25[address] [place], [place] [address]Dr. Garima Pulliam EO # 0.2 103/ul Normal 0.0-0.7 [facility] Comment on above: Performed By: #### C BC ####[facility] Cssssjmgbh7[address] [place], [place] [address]Dr. Garima Pulliam Eosinophils/100 WBC (Bld) 2.7 % Normal 0.9-7.0 [facility] Comment on above: Performed By: #### C BC ####[facility] Jgmtxrhclc256[address] [place], [place] [address]Dr. Chapisrenu Pulliam Erythrocyte distribution width (RBC) [Ratio] 13.3 % Normal 11.0-15.0 [facility] Comment on above: Performed By: #### C BC ####[facility] Hwulqvayjt98[address] [place], [place] [address]Dr. Garima Pulliam Hematocrit (Bld) [Volume fraction] 42.3 % Normal 42.0-54.0 [facility] Comment on above: Performed By: #### C BC ####[facility] Zakzpcdyra[address] [place], [place] [address]Dr. Chapisrenu Pulliam Hemoglobin (Bld) [Mass/Vol] 14.3 g/dL Normal 14.0-18.0 [facility] Comment on above: Performed By: #### C BC ####[facility] Visfnzldne[address] [place], [place] [address]Dr. Garima Pulliam IG # 0.02 10e3/ul Normal 0.00-0.03 [facility] Comment on above: Performed By: #### C BC ####[facility] Shsyazlcnk3728 [place] [phone]. Chapisrenu Pulliam IG % 0.2 % Normal 0.0-0.5 [facility] Comment on above: Performed By: #### C BC ####[facility] Njflzylemr0511 [place] [address]Dr. Garima Pulliam LYMPH # 2.6 103/ul Normal 1.2-3.8 [facility] Comment on above: Performed By: #### C BC ####[facility] Knnfeknhta4506 [place] [address]Dr. Chapisrenu Pulliam Lymphocytes/100 WBC (Bld) 29.6 % Normal 20.5-60.0 [facility] Comment on above: Performed By: #### C BC ####[facility] Dvyichbvua6058 [place] [address]Dr. Garima Pulliam MANUAL DIFF REQ NO Normal [facility] Comment on above: Performed By: #### C BC ####[facility] Isdrtmlchk3882 [place] [address]Dr. Garima Pulliam MCH (RBC) [Entitic mass] 30.2 pg Normal 25.9-34.0 [facility] Comment on above: Performed By: #### C BC ####[facility] Xovhefclav9536 [place] [address]Dr. Garima Pulliam MCHC (RBC) [Mass/Vol] 33.8 g/dL Normal 29.9-35.2 [facility] Comment on above: Performed By: #### C BC ####[facility] Sppfpgmvos[address] [place], [place] [address]Dr. Garima Pulliam MCV (RBC) [Entitic vol] 89.2 fL Normal 80.0-94.0 [facility] Comment on above: Performed By: #### C BC ####[facility] Uypnnarjto[address] [place], [place] [address]Dr. Garima Pulliam MONO # 0.7 103/ul Normal 0.3-0.8 [facility] Comment on above: Performed By: #### C BC ####[facility] Bcbgkcswof0960 [place] [address]Dr. Garima Pulliam Monocytes/100 WBC (Bld) 8.3 % Normal 1.7-12.0 [facility] Comment on above: Performed By: #### C BC ####[facility] Nadsrswhxd2337 [place] [address]Dr. Garima Pulliam NEUT # 5.1 103/ul Normal 1.4-6.5 [facility] Comment on above: Performed By: #### C BC ####[facility] Cbboknhgtl7862 [place] [address]Dr. Garima Pulliam Neutrophils/100 WBC (Bld) 59.0 % Normal 43.0-75.0 [facility] Comment on above: Performed By: #### C BC ####[facility] Lvmwvolbzp8987 [place] [address]Dr. Garima Pulliam Platelet mean volume (Bld) [Entitic vol] 8.7 fL Critically low 9.5-13.5 [facility] Comment on above: Performed By: #### C BC ####[facility] Jwptuxhgav1302 [place] [address]Dr. Garima Pulliam PLT 182 103/ul Normal 150-450 [facility] Comment on above: Performed By: #### C BC ####[facility] Gwmrhjaexh1404 [place] [address]Dr. Garima Pulliam RBC 4.74 106/ul Normal 4.70-6.10 [facility] Comment on above: Performed By: #### C BC ####[facility] Pxkoxkazfc8356 [place] [address]Dr. Garima Pulliam WBC 8.7 103/ul Normal 4.0-11.0 [facility] Comment on above: Performed By: #### C BC ####[facility] Xlbuogxhfk4630 [place] [phone]. Garima Pulliam [facility]25 SARS-CoV-2 (COVID-19) RNA MARIE+probe Ql (Unsp spec) Not detected Normal NOT DETECTED [facility] Comment on above: Result Comment: When [...] for this test is supported by the [place] of Health and Human Service's declaration that [...] be used). Performed By: #### C VDTB ####[facility] Knxtumjzbm7068 [place] [address]Dr. Garima Pulliam PROF 14(COMP METB)on 023 Albumin [Mass/Vol] 3.6 g/dL Normal 3.4-5.0 [facility] Comment on above: Performed By: #### C MP, BNP, HSTROPN ####[facility] Vvlntggoid8897 [place] [address]Dr. Garima Pulliam Albumin/Globulin [Mass ratio] 1.5 {ratio} Normal [facility] Comment on above: Performed By: #### C MP, BNP, HSTROPN ####[facility] Licqvfxvxh4326 [place] [address]Dr. Garima Pulliam ALP [Catalytic activity/Vol] 79 U/L Normal 46-116 [facility] Comment on above: Performed By: #### C MP, BNP, HSTROPN ####[facility] Xmttkbtuia6616 [place] [address]Dr. Garima Pulliam ALT [Catalytic activity/Vol] 27 U/L Normal 16-63 [facility] Comment on above: Performed By: #### C MP, BNP, HSTROPN ####[facility] Drdbevyzbo0912 [place] [address]Dr. Garima Pulliam Anion gap [Moles/Vol] 11.7 mmol/L Normal [facility] Comment on above: Performed By: #### C MP, BNP, HSTROPN ####[facility] Zwzymxekkf5759 [place] [address]Dr. Garima Pulliam AST [Catalytic activity/Vol] 21 U/L Normal 15-37 [facility] Comment on above: Performed By: #### C MP, BNP, HSTROPN ####[facility] Dmuvwbrqtz5787 [place] [address]Dr. Garima Pulliam Bilirubin [Mass/Vol] 0.3 mg/dL Normal 0.2-1.0 [facility] Comment on above: Performed By: #### C MP, BNP, HSTROPN ####[facility] Gwqvjxokhq[address] [place], [place] [address]Dr. Garima Pulliam Calcium [Mass/Vol] 8.9 mg/dL Normal 8.5-10.1 [facility] Comment on above: Performed By: #### C MP, BNP, HSTROPN ####[facility] Mavcbjpcfs21[address] [place], [place] [address]Dr. Garima Pulliam Chloride [Moles/Vol] 107 mmol/L Normal 98-107 [facility] Comment on above: Performed By: #### C MP, BNP, HSTROPN ####[facility] Lrpswyabaf58[address] [place], [place] [address]Dr. Garima Pulliam CO2 [Moles/Vol] 26.0 mmol/L Normal 21.0-32.0 [facility] Comment on above: Performed By: #### C MP, BNP, HSTROPN ####[facility] Dasefvwccr62[address] [place], [place] [address]Dr. Garima Pulliam Creatinine [Mass/Vol] 0.65 mg/dL Critically low 0.70-1.30 [facility] Comment on above: Performed By: #### C MP, BNP, HSTROPN ####[facility] Xoqezbiofm4400 [place] [address]Dr. Garima Pulliam EGFR-AF ITALIAN >60 Normal >=60 [facility] Comment on above: Performed By: #### C MP, BNP, HSTROPN ####[facility] Vlqkdaxufc1409 [place] [address]Dr. Garima Pulliam EGFR-NON AF ITALIAN >60 Normal >=60 [facility] Comment on above: Performed By: #### C MP, BNP, HSTROPN ####[facility] Xxcntqpknz058[address] [place], [place] [address]Dr. Garima Pulliam Globulin (S) [Mass/Vol] 2.4 g/dL Normal [facility] Comment on above: Performed By: #### C MP, BNP, HSTROPN ####[facility] Lsgeejffow[address] [place], [place] [address]Dr. Garima Pulliam Glucose [Mass/Vol] 85 mg/dL Normal 74-106 [facility] Comment on above: Performed By: #### C MP, BNP, HSTROPN ####[facility] Udovkdemtt[address] [place], [place] [address]Dr. Garima Pulliam Potassium [Moles/Vol] 3.7 mmol/L Normal 3.5-5.1 [facility] Comment on above: Performed By: #### C MP, BNP, HSTROPN ####[facility] Ocoweujjgo15[address] [place], [place] [address]Dr. Garima Pulliam Protein [Mass/Vol] 6.0 g/dL Critically low 6.4-8.2 [facility] Comment on above: Performed By: #### C MP, BNP, HSTROPN ####[facility] Rclbwvvhoh[address] [place], [place] [address]Dr. Garima Pulliam Sodium [Moles/Vol] 141 mmol/L Normal 136-145 [facility] Comment on above: Performed By: #### C MP, BNP, HSTROPN ####[facility] Zdlkxllres[address] [place], [place] [address]Dr. Garima Pulliam Urea nitrogen [Mass/Vol] 5.0 mg/dL Critically low 7.0-18.0 [facility] Comment on above: Performed By: #### C MP, BNP, HSTROPN ####[facility] Cavtzheoyb5400 [place] [address]Dr. Garima Pulliam Urea nitrogen/Creatinine [Mass ratio] 7.7 mg/mg Normal [facility] Comment on above: Performed By: #### C MP, BNP, HSTROPN ####[facility] Mdzajrhqqj[address] [place], [place] [address]Dr. Garima Pulliam PROTIMEon 01-12-2023 INR Coag (PPP) [Relative time] 1.16 {INR} Normal [facility] Comment on above: Performed By: #### P TT, PT ####[facility] [address] [place] [address]. Garima Pulliam INR GUIDELINES SEE BELOW Normal [facility] Comment on above: Result Comment: WESLEY RED INR: 2.0 - 3.0 CONDITIONS NOT LISTED BELOW 2.5 - 3.5 FOR PROSTHETIC HEART VALVE REPLACEMENT 2.5 - 3.5 RECURRENT THROMBOSIS Performed By: #### P TT, PT ####[facility] Xuhmvasqhv[address] [place], [place] [address]Dr. Garima Pulliam PT Coag (PPP) [Time] 12.2 s Critically high 9.0-11.6 [facility] Comment on above: Performed By: #### P TT, PT ####[facility] Salrdgjgkx[address] [place], [place] [address]Dr. Garima Pulliam PTTon 01-12-2023 aPTT Coag (Bld) [Time] 29.1 s Normal 22.3-36.2 [facility] Comment on above: Performed By: #### P TT, PT ####[facility] Fmueaopvbg[address] [place], [place] [address]Dr. Garima Pulliam TROPONIN, HIGH SENSITIVITYon 01-12-2023 HSTROP 10.3 pg/mL Normal 4.0-76.1 [facility] Comment on above: Result Comment: CUT- OFF POINTS HAVE BEEN ESTABLISHED BASED ON THE FOURTH UNIVERSAL DEFINITIONS OF MYOCARDIALINFARCTION. THE UPPER REFERENCE LIMIT (URL) OF TROPONIN, DEFINED THE 99TH PERCENTILE OFcTnI DISTRIBUTION IN A REFERENCE POPULATION, HAS BEEN CONFIRMED THE DECISION THRESHOLDFOR [place] DIAGNOSIS. Performed By: #### H STROPN ####[facility] Ppgqjhhccx6915 [place] [address]Dr. Garima Pulliam HSTROP 9.2 pg/mL Normal 4.0-76.1 [facility] Comment on above: Result Comment: CUT- OFF POINTS HAVE BEEN ESTABLISHED BASED ON THE FOURTH UNIVERSAL DEFINITIONS OF MYOCARDIALINFARCTION. THE UPPER REFERENCE LIMIT (URL) OF TROPONIN, DEFINED THE 99TH PERCENTILE OFcTnI DISTRIBUTION IN A REFERENCE POPULATION, HAS BEEN CONFIRMED THE DECISION THRESHOLDFOR AK DIAGNOSIS. Performed By: #### C MP, BNP, HSTROPN ####[facility] Lqjprnkidr5364 [place] [address]Dr. Garima Pulliam XR CHEST 1 Von 01-12-2023 XR CHEST 1 V Normal [facility] XR CHEST 1 Von 01-01-2023 XR CHEST 1 V Normal [facility] CARDIAC NASH 3-6on 3 CK [Catalytic activity/Vol] 196 U/L Normal 39-308 [facility] Comment on above: Performed By: #### C MREP ####[facility] Djwjcbhbth4281 [place] [address]Dr. Garima Pulliam CK.MB [Mass/Vol] 7.41 ng/mL Critically high <=3.60 [facility] Comment on above: Performed By: #### C MREP ####[facility] Gbcirjzofk0336 [place] [address]Dr. Garima Pulliam HSTROP 10.3 pg/mL Normal 4.0-76.1 [facility] Comment on above: Result Comment: CUT- OFF POINTS HAVE BEEN ESTABLISHED BASED ON THE FOURTH UNIVERSAL DEFINITIONS OF MYOCARDIALINFARCTION. THE UPPER REFERENCE LIMIT (URL) OF TROPONIN, DEFINED THE 99TH PERCENTILE OFcTnI DISTRIBUTION IN A REFERENCE POPULATION, HAS BEEN CONFIRMED THE DECISION THRESHOLDFOR [place] DIAGNOSIS. Performed By: #### C MREP ####[facility] Pghdrzvoku1003 [place] [address]Dr. Garima Pulliam XR CHEST 1 Von 12-26-2022 XR CHEST 1 V Normal [facility] BNPon 12-25-2022 Natriuretic peptide B (Bld) [Mass/Vol] 98.0 pg/mL Normal <=900.0 [facility] Comment on above: Performed By: #### B HVAC/R INSTRUCTOR, BMP, CMADM ####[facility] Jkuwfqurty8625 [place] [id number]. Garima Pulliam CARDIAC NASH ADMITon 023 CK [Catalytic activity/Vol] 208 U/L Normal 39-308 [facility] Comment on above: Performed By: #### B HVAC/R INSTRUCTOR, BMP, CMADM ####[facility] Tupabplqaw6357 [place] [address]Dr. Garima Pulliam CK.MB [Mass/Vol] 7.63 ng/mL Critically high <=3.60 [facility] Comment on above: Performed By: #### B HVAC/R INSTRUCTOR, BMP, CMADM ####[facility] Wztdenytso4181 [place] [address]Dr. Garima Pulliam HSTROP 8.8 pg/mL Normal 4.0-76.1 [facility] Comment on above: Result Comment: CUT- OFF POINTS HAVE BEEN ESTABLISHED BASED ON THE FOURTH UNIVERSAL DEFINITIONS OF MYOCARDIALINFARCTION. THE UPPER REFERENCE LIMIT (URL) OF TROPONIN, DEFINED THE 99TH PERCENTILE OFcTnI DISTRIBUTION IN A REFERENCE POPULATION, HAS BEEN CONFIRMED THE DECISION THRESHOLDFOR [place] DIAGNOSIS. Performed By: #### B HVAC/R INSTRUCTOR, BMP, CMADM ####[facility] Yuzxtelbze3608 [place] [address]Dr. Garima Pulliam DORIS 83 ng/mL Normal 16-96 [facility] Comment on above: Performed By: #### B HVAC/R INSTRUCTOR, BMP, CMADM ####[facility] Lakiluccrc5282 [place] [id number]. Garima Pulliam CBC AUTO DIFFon 12-25-2022 BASO # 0.0 103/ul Normal 0.0-0.1 [facility] Comment on above: Performed By: #### C BC ####[facility] Ztvgbsllcq6002 [place] [address]Dr. Garima Pulliam Basophils/100 WBC (Bld) 0.0 % Critically low 0.2-2.0 [facility] Comment on above: Performed By: #### C BC ####[facility] Ryelavsbtz[address] [place], [place] [address]Dr. Garima Pulliam EO # 0.0 103/ul Normal 0.0-0.7 [facility] Comment on above: Performed By: #### C BC ####[facility] Ggswtcsoku[address] [place], [place] [address]Dr. Garima Pulliam Eosinophils/100 WBC (Bld) 0.7 % Critically low 0.9-7.0 [facility] Comment on above: Performed By: #### C BC ####[facility] Nshxpkgklc030[address] [place], [place] [address]Dr. Garima Pulliam Erythrocyte distribution width (RBC) [Ratio] 13.4 % Normal 11.0-15.0 [facility] Comment on above: Performed By: #### C BC ####[facility] Zupcpatwug[address] [place], [place] [address]Dr. Garima Pulliam Hematocrit (Bld) [Volume fraction] 42.9 % Normal 42.0-54.0 [facility] Comment on above: Performed By: #### C BC ####[facility] Qxljsszpur[address] [place], [place] [address]Dr. Chapisrenu Pulliam Hemoglobin (Bld) [Mass/Vol] 14.4 g/dL Normal 14.0-18.0 [facility] Comment on above: Performed By: #### C BC ####[facility] Dzhqglwaqv[address] [place], [place] [address]Dr. Garima Pulliam IG # 0.00 10e3/ul Normal 0.00-0.03 [facility] Comment on above: Performed By: #### C BC ####[facility] Fdglfwtkzw457[address] [place], [place] [address]Dr. Garima Pulliam IG % 0.0 % Normal 0.0-0.5 [facility] Comment on above: Performed By: #### C BC ####[facility] Qjaeeluhnp022[address] [place], [place] [address]Dr. Garima Pulliam LYMPH # 2.4 103/ul Normal 1.2-3.8 [facility] Comment on above: Performed By: #### C BC ####[facility] Mjykpsodwl4945 [place] [address]Dr. Garima Pulliam Lymphocytes/100 WBC (Bld) 29.2 % Normal 20.5-60.0 [facility] Comment on above: Performed By: #### C BC ####[facility] Uhnbsbqtwk3357 [place] [address]DrAdalberto Pulliam MANUAL DIFF REQ NO Normal [facility] Comment on above: Performed By: #### C BC ####[facility] Sjpdptpwyr2483 [place] [address]Dr. Garima Pulliam MCH (RBC) [Entitic mass] 30.7 pg Normal 25.9-34.0 [facility] Comment on above: Performed By: #### C BC ####[facility] Czmvphlivy[address] [place], [place] [address]Dr. Garima Pulliam MCHC (RBC) [Mass/Vol] 33.6 g/dL Normal 29.9-35.2 [facility] Comment on above: Performed By: #### C BC ####[facility] Xpndfjqfbp[address] [place], [place] [address]DrAdalberto Pulliam MCV (RBC) [Entitic vol] 91.5 fL Normal 80.0-94.0 [facility] Comment on above: Performed By: #### C BC ####[facility] Reiauuvmtf9030 [place] [address]Dr. Garima Pulliam MONO # 0.0 103/ul Critically low 0.3-0.8 [facility] Comment on above: Performed By: #### C BC ####[facility] Fmfzltmsvz[address] [place], [place] [address]DrAdalberto Pulliam Monocytes/100 WBC (Bld) 8.0 % Normal 1.7-12.0 [facility] Comment on above: Performed By: #### C BC ####[facility] Runidoquwh[address] [place], [place] [address]DrAdalberto Pulliam NEUT # 5.1 103/ul Normal 1.4-6.5 [facility] Comment on above: Performed By: #### C BC ####[facility] Ecmvpoytea0578 [place] [id number]. Garima Pulliam Neutrophils/100 WBC (Bld) 62.8 % Normal 43.0-75.0 [facility] Comment on above: Performed By: #### C BC ####[facility] Ybjevvnecz4531 [place] [phone]. Garima Pulliam Platelet mean volume (Bld) [Entitic vol] 8.6 fL Critically low 9.5-13.5 [facility] Comment on above: Performed By: #### C BC ####[facility] Spfjtvvqkz4448 [place] [address]Dr. Garima Pulliam PLT 200 103/ul Normal 150-450 [facility] Comment on above: Performed By: #### C BC ####[facility] Tpxcnfqryy7011 [place] [address]Dr. Garima Pulliam RBC 4.69 106/ul Critically low 4.70-6.10 [facility] Comment on above: Performed By: #### C BC ####[facility] Dngfmuexfh2124 [place] [id number]. Garima Pulliam WBC 8.2 103/ul Normal 4.0-11.0 [facility] Comment on above: Performed By: #### C BC ####[facility] Ipcrppjfxp6815 [place] [id number]. Garima Pulliam [facility]on SARS-CoV-2 (COVID-19) RNA MARIE+probe Ql (Unsp spec) Not detected Normal NOT DETECTED [facility] Comment on above: Result Comment: When [...] for this test is supported by the [place] of Health and Human Service's declaration that [...] be used). Performed By: #### C VDTBH ####[facility] Efcrdilevo[address] [place], [place] [address]Dr. Garima Pulliam INFLUENZA A AND B AGon 12-25 INFLUANE SEE BELOW Normal [facility] Comment on above: Result Comment: Nega tive for Flu A protein angiten. Infection due to Flu A cannot be ruled out. Flu A angiten in the sample may be below the detection limit of the test. Performed By: #### I NFLUAB ####[facility] [address] [place] [address]. Garima Pulliam INFLUBNEGH SEE BELOW Normal [facility] Comment on above: Result Comment: Nega tive for Flu B protein antigen. Infection due to Flu B cannot be ruled out. Flu B antigen in the sample may be below the detection limit of the test. Performed By: #### I NFLUAB ####[facility] Rtdj[address] [place], [place] [address]Dr. renu Pulliam INFLUENZA A AG Negative Normal NEGATIVE SEE COMMENT [facility] Comment on above: Performed By: #### I NFLUAB ####[facility] Rmortrsv[address] [place], [place] [address]Dr. Garima Pulliam INFLUENZA B AG Negative Normal NEGATIVE SEE COMMENT [facility] Comment on above: Performed By: #### I NFLUAB ####[facility] In[address] [place] [address]. Garima Pulliam PROF CHEM 8 (BAS METB)on Anion gap [Moles/Vol] 11.1 mmol/L Normal [facility] Comment on above: Performed By: #### B HVAC/R INSTRUCTOR, BMP, CMADM ####[facility] Minmndsrmd79[address] [place] [id number]. Garima Pulliam Calcium [Mass/Vol] 8.5 mg/dL Normal 8.5-10.1 [facility] Comment on above: Performed By: #### B HVAC/R INSTRUCTOR, BMP, CMADM ####[facility] Rxcoeooteo8273 [place] [id number]. Garima Pulliam Chloride [Moles/Vol] 106 mmol/L Normal 98-107 [facility] Comment on above: Performed By: #### B HVAC/R INSTRUCTOR, BMP, CMADM ####[facility] Lljwlejngi[address] [place] [address]Dr. Garima Pulliam CO2 [Moles/Vol] 27.4 mmol/L Normal 21.0-32.0 [facility] Comment on above: Performed By: #### B HVAC/R INSTRUCTOR, BMP, CMADM ####[facility] Aqxubugike[address] [place] [address]Dr. Garima Pulliam Creatinine [Mass/Vol] 0.65 mg/dL Critically low 0.70-1.30 [facility] Comment on above: Performed By: #### B HVAC/R INSTRUCTOR, BMP, CMADM ####[facility] Slgybotynl[address] [place] [address]Dr. Garima Pulliam EGFR-AF ITALIAN >60 Normal >=60 [facility] Comment on above: Performed By: #### B HVAC/R INSTRUCTOR, BMP, CMADM ####[facility] Mwikscmnax8[address] [place] [address]Dr. Garima Pulliam EGFR-NON AF ITALIAN >60 Normal >=60 [facility] Comment on above: Performed By: #### B HVAC/R INSTRUCTOR, BMP, CMADM ####[facility] Xufoegzkqe4199 [place] [address]Dr. Garima Pulliam Glucose [Mass/Vol] 140 mg/dL Critically high 74-106 [facility] Comment on above: Performed By: #### B HVAC/R INSTRUCTOR, BMP, CMADM ####[facility] Xmdeoonlqk67[address] [place] [address]Dr. Garima Pulliam Potassium [Moles/Vol] 3.5 mmol/L Normal 3.5-5.1 [facility] Comment on above: Performed By: #### B HVAC/R INSTRUCTORMARVIN, NANCY ####[facility] Ufxlsdgnwr64[address] [place] [address]Dr. Chapisrenu Pulliam Sodium [Moles/Vol] 141 mmol/L Normal 136-145 [facility] Comment on above: Performed By: #### B HVAC/R INSTRUCTORMARVIN, CMAANA ROSA ####[facility] Ptataojavv[address] [place] [address]Dr. Garima Pulliam Urea nitrogen [Mass/Vol] 8.0 mg/dL Normal 7.0-18.0 [facility] Comment on above: Performed By: #### B MARVIN FRENCH CMADM ####[facility] Pfpekrgteb[address] [place] [address]Dr. Garima Pulliam Urea nitrogen/Creatinine [Mass ratio] 12.3 mg/mg Normal [facility] Comment on above: Performed By: #### B MARVIN FRENCH CMAANA ROSA ####[facility] Pcrgumyxrz6[address] [place] [address]Dr. Garima Heraclio CARDIAC NASH ADMITon 023 CK [Catalytic activity/Vol] 165 U/L Normal 39-308 [facility] Comment on above: Performed By: #### B NANCY HERNANDEZ ####[facility] Qecx[address] [place], [place] [address]Dr. Garima Pulliam CK.MB [Mass/Vol] 6.48 ng/mL Critically high <=3.60 [facility] Comment on above: Performed By: #### B MP, CMADM ####[facility] Lidpaanc[address] [place], [place] [address]Dr. Garima Heraclio HSTROP 11.7 pg/mL Normal 4.0-76.1 [facility] Comment on above: Result Comment: CUT- OFF POINTS HAVE BEEN ESTABLISHED BASED ON THE FOURTH UNIVERSAL DEFINITIONS OF MYOCARDIALINFARCTION. THE UPPER REFERENCE LIMIT (URL) OF TROPONIN, DEFINED THE 99TH PERCENTILE OFcTnI DISTRIBUTION IN A REFERENCE POPULATION, HAS BEEN CONFIRMED THE DECISION THRESHOLDFOR [place] DIAGNOSIS. Performed By: #### B DAVID, CMADM ####[facility] Jhyppbflfw2724 [place] [phone]. Garima Pulliam DORIS 83 ng/mL Normal 16-96 [facility] Comment on above: Performed By: #### B MP, CMADM ####[facility] Dmjffxxkwg1007 [place] [phone]. Garima Pulliam CBC AUTO DIFFon 12-10-2022 BASO # 0.0 103/ul Normal 0.0-0.1 [facility] Comment on above: Performed By: #### C BC ####[facility] Txasblpfpe8648 [place] [phone]. Garima Pulliam Basophils/100 WBC (Bld) 0.3 % Normal 0.2-2.0 [facility] Comment on above: Performed By: #### C BC ####[facility] Eokuhrvffg5933 [place] [address]Dr. Garima Pulliam EO # 0.1 103/ul Normal 0.0-0.7 [facility] Comment on above: Performed By: #### C BC ####[facility] Hbkxthtqma6939 [place] [phone]. Garima Pulliam Eosinophils/100 WBC (Bld) 0.4 % Critically low 0.9-7.0 [facility] Comment on above: Performed By: #### C BC ####[facility] Czknymkhbg2344 [place] [phone]. Garima Pulliam Erythrocyte distribution width (RBC) [Ratio] 13.2 % Normal 11.0-15.0 [facility] Comment on above: Performed By: #### C BC ####[facility] Kuq[address]vrxem[address] [place], [place] [id number]. Garima Pulliam Hematocrit (Bld) [Volume fraction] 42.4 % Normal 42.0-54.0 [facility] Comment on above: Performed By: #### C BC ####[facility] Mtmvvsspmt[address] [place], [place] [phone]. Garima Pulliam Hemoglobin (Bld) [Mass/Vol] 14.4 g/dL Normal 14.0-18.0 [facility] Comment on above: Performed By: #### C BC ####[facility] Piljouguro4262 [place] [phone]. Garima Pulliam IG # 0.05 10e3/ul Critically high 0.00-0.03 [facility] Comment on above: Performed By: #### C BC ####[facility] Ssviiavcke0359 [place] [phone]. Garima Pulliam IG % 0.4 % Normal 0.0-0.5 [facility] Comment on above: Performed By: #### C BC ####[facility] Ehbwpxsyjm4929 [place] [address]Dr. Garima Pulliam LYMPH # 0.8 103/ul Critically low 1.2-3.8 [facility] Comment on above: Performed By: #### C BC ####[facility] Uwcdugxfia6265 [place] [address]Dr. Garima Pulliam Lymphocytes/100 WBC (Bld) 6.5 % Critically low 20.5-60.0 [facility] Comment on above: Performed By: #### C BC ####[facility] Ayvlkixftm1267 [place] [address]Dr. Garima Pulliam MANUAL DIFF REQ NO Normal [facility] Comment on above: Performed By: #### C BC ####[facility] Nrqildyimx1365 [place] [address]Dr. Garima Pulliam MCH (RBC) [Entitic mass] 30.5 pg Normal 25.9-34.0 [facility] Comment on above: Performed By: #### C BC ####[facility] Yrrgg[address]lo[address] [place], [place] [address]Dr. Garima Pulliam MCHC (RBC) [Mass/Vol] 34.0 g/dL Normal 29.9-35.2 [facility] Comment on above: Performed By: #### C BC ####[facility] Sjlbqslp[address] [place], [place] [address]Dr. Garima Pulliam MCV (RBC) [Entitic vol] 89.8 fL Normal 80.0-94.0 [facility] Comment on above: Performed By: #### C BC ####[facility] Vbxbftklxr7904 [place] [phone]. Garima Pulliam MONO # 0.2 103/ul Critically low 0.3-0.8 [facility] Comment on above: Performed By: #### C BC ####[facility] Jlrwqwbemz1513 [place] [phone]. Garima Pulliam Monocytes/100 WBC (Bld) 2.0 % Normal 1.7-12.0 [facility] Comment on above: Performed By: #### C BC ####[facility] Ipueuhefsj6288 [place] [phone]. Garima Pulliam NEUT # 10.5 103/ul Critically high 1.4-6.5 [facility] Comment on above: Performed By: #### C BC ####[facility] Zeafuuchzz7406 [place] [phone]. Garima Pulliam Neutrophils/100 WBC (Bld) 90.4 % Critically high 43.0-75.0 [facility] Comment on above: Performed By: #### C BC ####[facility] Rzykgzjjpl2758 [place] [phone]. Garima Pulliam Platelet mean volume (Bld) [Entitic vol] 9.4 fL Critically low 9.5-13.5 [facility] Comment on above: Performed By: #### C BC ####[facility] Etpembpgzf4994 [place] [phone]. Garima Pulliam PLT 198 103/ul Normal 150-450 [facility] Comment on above: Performed By: #### C BC ####[facility] Zzdqkeclyh1722 [place] [phone]. Garima Pulliam RBC 4.72 106/ul Normal 4.70-6.10 [facility] Comment on above: Performed By: #### C BC ####[facility] Zhxcezaeef3123 [place] [phone]. Garima Pulliam WBC 11.6 103/ul Critically high 4.0-11.0 [facility] Comment on above: Performed By: #### C BC ####[facility] Hshcwqajnh9163 [place] [address]Dr. Garima Pulliam PROF CHEM 8 (BAS METB)on Anion gap [Moles/Vol] 11.3 mmol/L Normal [facility] Comment on above: Performed By: #### B DAVID, CMADM ####[facility] Uianoffekq5923 [place] [address]Dr. Garima Pulliam Calcium [Mass/Vol] 8.9 mg/dL Normal 8.5-10.1 [facility] Comment on above: Performed By: #### B DAVID, NANCY ####[facility] Tedhetrohq9270 [place] [address]Dr. Garima Pulliam Chloride [Moles/Vol] 103 mmol/L Normal 98-107 [facility] Comment on above: Performed By: #### B DAVID, CMADM ####[facility] Fgb[address]wd[address] [place], [place] [address]Dr. Garima Pulliam CO2 [Moles/Vol] 28.2 mmol/L Normal 21.0-32.0 [facility] Comment on above: Performed By: #### Trae HERNANDEZ, NANCY ####[facility] Ftfkcnjove6395 [place] [address]Dr. Garima Pulliam Creatinine [Mass/Vol] 0.60 mg/dL Critically low 0.70-1.30 [facility] Comment on above: Performed By: #### Trae HERNANDEZ, CMAANA ROSA ####[facility] Ikgmuaticp3026 [place] [address]Dr. Garima Pulliam EGFR-AF ITALIAN >60 Normal >=60 [facility] Comment on above: Performed By: #### B DAVID, CMAANA ROSA ####[facility] Accjbxnpwf8987 [place] [address]Dr. Garima Pulliam EGFR-NON AF ITALIAN >60 Normal >=60 [facility] Comment on above: Performed By: #### B DAVID, CMADM ####[facility] Rubnrncsdh6993 [place] [address]Dr. Garima Pulliam Glucose [Mass/Vol] 166 mg/dL Critically high 74-106 [facility] Comment on above: Performed By: #### B DAVID, CMADM ####[facility] Ckdvyfwxsx0399 [place] [address]Dr. Garima Pulliam Potassium [Moles/Vol] 3.5 mmol/L Normal 3.5-5.1 [facility] Comment on above: Performed By: #### B DAVID, CMADM ####[facility] Vovszvhiom[address] [place], [place] [address]Dr. Garima Pulliam Sodium [Moles/Vol] 139 mmol/L Normal 136-145 [facility] Comment on above: Performed By: #### B DAVID, CMADM ####[facility] Hudjjswkbe[address] [place], [place] [address]Dr. Chapisrenu Heraclio Urea nitrogen [Mass/Vol] 9.0 mg/dL Normal 7.0-18.0 [facility] Comment on above: Performed By: #### B DAVID, CMAANA ROSA ####[facility] Fpkecrcdkf[address] [place], [place] [address]Dr. Garima Pulliam Urea nitrogen/Creatinine [Mass ratio] 15.0 mg/mg Normal [facility] Comment on above: Performed By: #### B DAVID, CMAANA ROSA ####[facility] Xhdpasxxpx[address] [place], [place] [address]Dr. Garima Heraclio XR CHEST 1 Von 12-10-2022 XR CHEST 1 V Normal [facility] BNPon 11-27-2022 Natriuretic peptide B (Bld) [Mass/Vol] 95.0 pg/mL Normal <=900.0 [facility] Comment on above: Performed By: #### C MP, HSTROPN, BNP ####[facility] Bbxuiydbdt[address] [place], [place] [address]Dr. Garima Pulliam CBC AUTO DIFFon 11-27-2022 BASO # 0.0 103/ul Normal 0.0-0.1 [facility] Comment on above: Performed By: #### C BC ####[facility] Fhnlkggabp[address] [place], [place] [address]Dr. Garima Pulliam Basophils/100 WBC (Bld) 0.2 % Normal 0.2-2.0 [facility] Comment on above: Performed By: #### C BC ####[facility] Sybxqdstah1725 [place] [phone]. Garima Pulliam EO # 0.2 103/ul Normal 0.0-0.7 [facility] Comment on above: Performed By: #### C BC ####[facility] Akuqeacije9116 [place] [phone]. Garima Pulliam Eosinophils/100 WBC (Bld) 2.0 % Normal 0.9-7.0 [facility] Comment on above: Performed By: #### C BC ####[facility] Rxkiajsiup[address] [place], [place] [address]Dr. Garima Pulliam Erythrocyte distribution width (RBC) [Ratio] 13.2 % Normal 11.0-15.0 [facility] Comment on above: Performed By: #### C BC ####[facility] Akifogxkea[address] [place], [place] [address]Dr. Garima Pulliam Hematocrit (Bld) [Volume fraction] 42.4 % Normal 42.0-54.0 [facility] Comment on above: Performed By: #### C BC ####[facility] Fctjijftjp[address] [place], [place] [address]Dr. Garima Pulliam Hemoglobin (Bld) [Mass/Vol] 14.4 g/dL Normal 14.0-18.0 [facility] Comment on above: Performed By: #### C BC ####[facility] Xmdnrjyoun[address] [place], [place] [address]Dr. Garima Pulliam IG # 0.04 10e3/ul Critically high 0.00-0.03 [facility] Comment on above: Performed By: #### C BC ####[facility] Vyplbhkvpe[address] [place], [place] [address]Dr. Garima Pulliam IG % 0.4 % Normal 0.0-0.5 [facility] Comment on above: Performed By: #### C BC ####[facility] Msuycejxva[address] [place], [place] [address]Dr. Garima Pulliam LYMPH # 2.2 103/ul Normal 1.2-3.8 [facility] Comment on above: Performed By: #### C BC ####[facility] Oqndarwxhx6627 [place] [phone]. Chapisrenu Pulliam Lymphocytes/100 WBC (Bld) 21.5 % Normal 20.5-60.0 [facility] Comment on above: Performed By: #### C BC ####[facility] Rcoaydxupf3542 [place] [phone]. Garima Pulliam MANUAL DIFF REQ NO Normal [facility] Comment on above: Performed By: #### C BC ####[facility] Bwmyvuephq7870 [place] [phone]. Garima Pulliam MCH (RBC) [Entitic mass] 30.4 pg Normal 25.9-34.0 [facility] Comment on above: Performed By: #### C BC ####[facility] Kwnpztwfyr8367 [place] [phone]. Gairma Pulliam MCHC (RBC) [Mass/Vol] 34.0 g/dL Normal 29.9-35.2 [facility] Comment on above: Performed By: #### C BC ####[facility] Hmivvyuvuv5748 [place] [phone]. Garima Pulliam MCV (RBC) [Entitic vol] 89.6 fL Normal 80.0-94.0 [facility] Comment on above: Performed By: #### C BC ####[facility] Fdryjwogpa0618 [place] [address]Dr. Garima Pulliam MONO # 0.8 103/ul Normal 0.3-0.8 [facility] Comment on above: Performed By: #### C BC ####[facility] Bdsvmxwhdo3231 [place] [address]Dr. Garima Pulliam Monocytes/100 WBC (Bld) 7.7 % Normal 1.7-12.0 [facility] Comment on above: Performed By: #### C BC ####[facility] Ydbysolegf8426 [place] [phone]. Garima Pulliam NEUT # 7.0 103/ul Critically high 1.4-6.5 [facility] Comment on above: Performed By: #### C BC ####[facility] Fhupwzfbmg4826 [place] [address]Dr. Garima Pulliam Neutrophils/100 WBC (Bld) 68.2 % Normal 43.0-75.0 [facility] Comment on above: Performed By: #### C BC ####[facility] Pijdkutyun5643 [place] [phone]. Garima Pulliam Platelet mean volume (Bld) [Entitic vol] 8.9 fL Critically low 9.5-13.5 [facility] Comment on above: Performed By: #### C BC ####[facility] Pmvdwtduld3983 [place] [address]Dr. Garima Pulliam PLT 222 103/ul Normal 150-450 [facility] Comment on above: Performed By: #### C BC ####[facility] Wqfszmgmlt5776 [place] [address]Dr. Garima Pulliam RBC 4.73 106/ul Normal 4.70-6.10 [facility] Comment on above: Performed By: #### C BC ####[facility] Ct[address] [place], [place] [address]Dr. Garima Pulliam WBC 10.3 103/ul Normal 4.0-11.0 [facility] Comment on above: Performed By: #### C BC ####[facility] Jsswrhqglj5490 [place] [address]DrAdalberto Pulliam PROF 14(COMP METB)on 023 Albumin [Mass/Vol] 3.7 g/dL Normal 3.4-5.0 [facility] Comment on above: Performed By: #### C MP, HSTROPN, BNP ####[facility] Xpfzmmvvuw4072 [place] [phone]. Garima Pulliam Albumin/Globulin [Mass ratio] 1.5 {ratio} Normal [facility] Comment on above: Performed By: #### C MP, HSTROPN, BNP ####[facility] Paoohmcekh3123 [place] [phone] Pulliam ALP [Catalytic activity/Vol] 79 U/L Normal 46-116 [facility] Comment on above: Performed By: #### C DAVID HSTROPN, BNP ####[facility] Kuhgoguozj7997 [place] [address]Dr. Garima Pulliam ALT [Catalytic activity/Vol] 32 U/L Normal 16-63 [facility] Comment on above: Performed By: #### C DAVID, HSTROPN, BNP ####[facility] Xmmpxjmxye1806 [place] [address]Dr. Garima Pulliam Anion gap [Moles/Vol] 9.5 mmol/L Normal [facility] Comment on above: Performed By: #### C DAVID HSTROPN, BNP ####[facility] Xmmqpmknca[address] [place], [place] [address]Dr. Garima Pulilam AST [Catalytic activity/Vol] 25 U/L Normal 15-37 [facility] Comment on above: Performed By: #### C DAVID, HSTROPN, BNP ####[facility] Rbmgadorha[address] [place], [place] [address]Dr. Garima Pulliam Bilirubin [Mass/Vol] 0.4 mg/dL Normal 0.2-1.0 [facility] Comment on above: Performed By: #### C DAVID HSTROPN, BNP ####[facility] Ajsytbgkyv[address] [place], [place] [address]Dr. Garima Pulliam Calcium [Mass/Vol] 8.9 mg/dL Normal 8.5-10.1 [facility] Comment on above: Performed By: #### C DAVID, HSTROPN, BNP ####[facility] Qdzjskxrjg1734 [place] [address]Dr. Garima Pulliam Chloride [Moles/Vol] 103 mmol/L Normal 98-107 [facility] Comment on above: Performed By: #### C DAVID, HSTROPN, BNP ####[facility] Wnowoactgh1238 [place] [address]Dr. Garima Pulliam CO2 [Moles/Vol] 28.6 mmol/L Normal 21.0-32.0 [facility] Comment on above: Performed By: #### C MP, HSTROPN, BNP ####[facility] Dedbexnyll0371 [place] [address]Dr. Garima Pulliam Creatinine [Mass/Vol] 0.72 mg/dL Normal 0.70-1.30 [facility] Comment on above: Performed By: #### C MP, HSTROPN, BNP ####[facility] Oainwhdhuy1303 [place] [address]Dr. Garima Pulliam EGFR-AF ITALIAN >60 Normal >=60 [facility] Comment on above: Performed By: #### C MP, HSTROPN, BNP ####[facility] Eknkdzubmu[address] [place], [place] [address]Dr. Garima Pulliam EGFR-NON AF ITALIAN >60 Normal >=60 [facility] Comment on above: Performed By: #### C MP, HSTROPN, BNP ####[facility] Rypjnvpeeq[address] [place], [place] [address]Dr. Garima Pulliam Globulin (S) [Mass/Vol] 2.5 g/dL Normal [facility] Comment on above: Performed By: #### C MP, HSTROPN, BNP ####[facility] Vwdqcrpwoq[address] [place], [place] [address]Dr. Garima Pulliam Glucose [Mass/Vol] 114 mg/dL Critically high 74-106 [facility] Comment on above: Performed By: #### C MP, HSTROPN, BNP ####[facility] [address]jhtwoeepb[address] [place], [place] [address]Dr. Garima Pulliam Potassium [Moles/Vol] 4.1 mmol/L Normal 3.5-5.1 [facility] Comment on above: Performed By: #### C MP, HSTROPN, BNP ####[facility] Knbzrzejyy[address] [place], [place] [address]Dr. Garima Pulliam Protein [Mass/Vol] 6.2 g/dL Critically low 6.4-8.2 [facility] Comment on above: Performed By: #### C MP, HSTROPN, BNP ####[facility] Ouhblukyuu5655 [place] [address]Dr. Garima Pulliam Sodium [Moles/Vol] 137 mmol/L Normal 136-145 [facility] Comment on above: Performed By: #### C MP, HSTROPN, BNP ####[facility] Svjthwnvjt0795 [place] [address]Dr. Garima Pulliam Urea nitrogen [Mass/Vol] 13.0 mg/dL Normal 7.0-18.0 [facility] Comment on above: Performed By: #### C MP, HSTROPN, BNP ####[facility] Bnjphoxfxb7074 [place] [address]Dr. Chapisrenu Pulliam Urea nitrogen/Creatinine [Mass ratio] 18.1 mg/mg Normal [facility] Comment on above: Performed By: #### C MP, HSTROPN, BNP ####[facility] Itawnmauvw[address] [place], [place] [address]Dr. Garima Pulliam TROPONIN, HIGH SENSITIVITYon 11-27-2022 HSTROP 11.8 pg/mL Normal 4.0-76.1 [facility] Comment on above: Result Comment: CUT- OFF POINTS HAVE BEEN ESTABLISHED BASED ON THE FOURTH UNIVERSAL DEFINITIONS OF MYOCARDIALINFARCTION. THE UPPER REFERENCE LIMIT (URL) OF TROPONIN, DEFINED THE 99TH PERCENTILE OFcTnI DISTRIBUTION IN A REFERENCE POPULATION, HAS BEEN CONFIRMED THE DECISION THRESHOLDFOR [place] DIAGNOSIS. Performed By: #### C MP, HSTROPN, BNP ####[facility] Nofblfzqwx2206 [place] [address]Dr. Garima Pulliam XR CHEST 1 Von 11-27-2022 XR CHEST 1 V Normal [facility] BNPon 11-20-2022 Natriuretic peptide B (Bld) [Mass/Vol] 73.0 pg/mL Normal <=900.0 [facility] Comment on above: Performed By: #### B MP, HSTROPN, BNP ####[facility] Ezcpvnpcpd[address] [place], [place] [address]Dr. Chapisrenu Pulliam CBC AUTO DIFFon 11-20-2022 BASO # 0.0 103/ul Normal 0.0-0.1 [facility] Comment on above: Performed By: #### C BC ####[facility] Ovqkbqpqgv3701 [place] [id number]. Garima Pulliam Basophils/100 WBC (Bld) 0.3 % Normal 0.2-2.0 [facility] Comment on above: Performed By: #### C BC ####[facility] [address] [place], [place] [id number]. Garima Pulliam EO # 0.2 103/ul Normal 0.0-0.7 [facility] Comment on above: Performed By: #### C BC ####[facility] [address]fwtlxj[address] [place], [place] [address]Dr. Garima Pulliam Eosinophils/100 WBC (Bld) 2.1 % Normal 0.9-7.0 [facility] [facility] Comment on above: Performed By: #### C BC ####[facility] Cpylknzv[address] [place], [place] [address]Dr. Garima Pulliam Erythrocyte distribution width (RBC) [Ratio] 13.2 % Normal 11.0-15.0 [facility] Comment on above: Performed By: #### C BC ####[facility] Binlfsybns[address] [place], [place] [id number]. Garima Pulliam Hematocrit (Bld) [Volume fraction] 43.4 % Normal 42.0-54.0 [facility] Comment on above: Performed By: #### C BC ####[facility] Gvgodsw[address] [place], [place] [id number]. Garima Pulliam Hemoglobin (Bld) [Mass/Vol] 14.6 g/dL Normal 14.0-18.0 [facility] Comment on above: Performed By: #### C BC ####[facility] Omjifbbjtx[address] [place], [place] [address]Dr. Garima Pulliam IG # 0.02 10e3/ul Normal 0.00-0.03 [facility] Comment on above: Performed By: #### C BC ####[facility] Jtswklyajf[address] [place], [place] [address]Dr. Garima Pulliam IG % 0.2 % Normal 0.0-0.5 [facility] Comment on above: Performed By: #### C BC ####[facility] Uwyurhwwoi26[address] [place] [address]Dr. Chapisrenu Heraclio LYMPH # 2.1 103/ul Normal 1.2-3.8 [facility] Comment on above: Performed By: #### C BC ####[facility] Yykkdyurcy5950 [place] [id number]. Garima Pulliam Lymphocytes/100 WBC (Bld) 19.2 % Critically low 20.5-60.0 [facility] Comment on above: Performed By: #### C BC ####[facility] Xqznlgfvif4563 [place] [id number]. Garima Pulliam MANUAL DIFF REQ NO Normal [facility] Comment on above: Performed By: #### C BC ####[facility] Njbboiuvec5919 [place] [id number]. Garima Pulliam MCH (RBC) [Entitic mass] 30.4 pg Normal 25.9-34.0 [facility] Comment on above: Performed By: #### C BC ####[facility] Oqqebdovuc7749 [place] [address]Dr. Garima Pulliam MCHC (RBC) [Mass/Vol] 33.6 g/dL Normal 29.9-35.2 [facility] Comment on above: Performed By: #### C BC ####[facility] Ogocfjzeyj1069 [place] [address]Dr. Garima Pulliam MCV (RBC) [Entitic vol] 90.4 fL Normal 80.0-94.0 [facility] Comment on above: Performed By: #### C BC ####[facility] Fdmekzjcsj[address] [place] [address]Dr. Garima Pulliam MONO # 0.6 103/ul Normal 0.3-0.8 [facility] Comment on above: Performed By: #### C BC ####[facility] Hietsjqiwh4230 [place] [address]Dr. Garima Pulliam Monocytes/100 WBC (Bld) 5.8 % Normal 1.7-12.0 [facility] Comment on above: Performed By: #### C BC ####[facility] Unxjoiqmdn4360 [place] [address]Dr. Garima Pulliam NEUT # 7.8 103/ul Critically high 1.4-6.5 [facility] Comment on above: Performed By: #### C BC ####[facility] Tayrr[address]xtwd[address] [place] [address]Dr. Garima Pulliam Neutrophils/100 WBC (Bld) 72.4 % Normal 43.0-75.0 [facility] Comment on above: Performed By: #### C BC ####[facility] Lhxyvurbhh1456 [place] [phone]. Garima Pulliam Platelet mean volume (Bld) [Entitic vol] 8.7 fL Critically low 9.5-13.5 [facility] Comment on above: Performed By: #### C BC ####[facility] Qmeerjpepq44[address] [place] [address]Dr. Garima Pulliam PLT 184 103/ul Normal 150-450 [facility] Comment on above: Performed By: #### C BC ####[facility] Iwixejftwh4296 [place] [address]Dr. Garima Pulliam RBC 4.80 106/ul Normal 4.70-6.10 [facility] Comment on above: Performed By: #### C BC ####[facility] Nmjfwnejyn4066 [place] [id number]. Garima Pulliam WBC 10.8 103/ul Normal 4.0-11.0 [facility] Comment on above: Performed By: #### C BC ####[facility] Mcheqwmakm[address] [place], [place] [phone]. Garima Pulliam Covid-19 PCR (CVDTB)on 10-24 SARS-CoV-2 (COVID-19) RNA MARIE+probe Ql (Unsp spec) Not detected Normal NOT DETECTED [facility] Comment on above: Result Comment: When [...] for this test is supported by the [place] of Health and Human Service's declaration that [...] be used). Performed By: #### C VDTB ####[facility] Vfivpbipzh[address] [place], [place] [address]Dr. Garima Pulliam INFLUENZA A AND B AGon 11-20 [facility] SEE BELOW Normal [facility] Comment on above: Result Comment: Nega tive for Flu A protein angiten. Infection due to Flu A cannot be ruled out. Flu A angiten in the sample may be below the detection limit of the test. Performed By: #### I NFLUAB ####[facility] Heyzetvcxl[address] [place], [place] [address]Dr. Garima Pulliam INFLUBNEG SEE BELOW Normal [facility] Comment on above: Result Comment: Nega tive for Flu B protein antigen. Infection due to Flu B cannot be ruled out. Flu B antigen in the sample may be below the detection limit of the test. Performed By: #### I NFLUAB ####[facility] Akrikcisfx[address] [place], [place] [address]Dr. Garima Pulliam INFLUENZA A AG Negative Normal NEGATIVE SEE COMMENT [facility] Comment on above: Performed By: #### I NFLUAB ####[facility] Bjwkhqvenv[address] [place], [place] [address]Dr. Garima Pulliam INFLUENZA B AG Negative Normal NEGATIVE SEE COMMENT [facility] Comment on above: Performed By: #### I NFLUAB ####[facility] Oqvlgkeevt[address] [place], [place] [address]Dr. Garima Pullima PROF CHEM 8 (BAS METB)on Anion gap [Moles/Vol] 8.2 mmol/L Normal [facility] Comment on above: Performed By: #### B MP, HSTROPN, BNP ####[facility] Dmukepyang[address] [place] [address]Dr. Garima Pulliam Calcium [Mass/Vol] 8.7 mg/dL Normal 8.5-10.1 [facility] Comment on above: Performed By: #### B MP, HSTROPN, BNP ####[facility] Zjimnyhxws6775 [place] [address]Dr. Garima Pulliam Chloride [Moles/Vol] 103 mmol/L Normal 98-107 [facility] Comment on above: Performed By: #### B MP, HSTROPN, BNP ####[facility] Wyxzmwramx2742 [place] [address]Dr. Garima Pulliam CO2 [Moles/Vol] 29.4 mmol/L Normal 21.0-32.0 [facility] Comment on above: Performed By: #### B MP, HSTROPN, BNP ####[facility] Hzpvsbbkwq227[address] [place], [place] [address]Dr. Garima Pulliam Creatinine [Mass/Vol] 0.69 mg/dL Critically low 0.70-1.30 [facility] Comment on above: Performed By: #### B MP, HSTROPN, BNP ####[facility] Ndwnaowlsk2936 [place] [address]Dr. Garima Pulliam EGFR-AF ITALIAN >60 Normal >=60 [facility] Comment on above: Performed By: #### B MP, HSTROPN, BNP ####[facility] Klnxujsaiw[address] [place], [place] [address]Dr. Garima Pulliam EGFR-NON AF ITALIAN >60 Normal >=60 [facility] Comment on above: Performed By: #### B MP, HSTROPN, BNP ####[facility] Bcdxblsqvn2158 [place] [address]Dr. Chapisrenu Pulliam Glucose [Mass/Vol] 209 mg/dL Critically high 74-106 [facility] Comment on above: Performed By: #### B MP, HSTROPN, BNP ####[facility] Rodarbedsi9[address] [place] [address]Dr. Garima Pulliam Potassium [Moles/Vol] 3.6 mmol/L Normal 3.5-5.1 [facility] Comment on above: Performed By: #### B MP, HSTROPN, BNP ####[facility] Nfvfrdszlu1400 [place] [address]Dr. Garima Pulliam Sodium [Moles/Vol] 137 mmol/L Normal 136-145 [facility] Comment on above: Performed By: #### B MP, HSTROPN, BNP ####[facility] Vuijxostum4926 [place] [address]Dr. Garima Pulliam Urea nitrogen [Mass/Vol] 11.0 mg/dL Normal 7.0-18.0 [facility] Comment on above: Performed By: #### B MP, HSTROPN, BNP ####[facility] Laiplrpfkc9657 [place] [address]Dr. Garima Pulliam Urea nitrogen/Creatinine [Mass ratio] 15.9 mg/mg Normal [facility] Comment on above: Performed By: #### B MP, HSTROPN, BNP ####[facility] Bclgufriam78[address] [place] [address]Dr. Garima Pulliam TROPONIN, HIGH SENSITIVITYon 11-20-2022 HSTROP 8.7 pg/mL Normal 4.0-76.1 [facility] Comment on above: Result Comment: CUT- OFF POINTS HAVE BEEN ESTABLISHED BASED ON THE FOURTH UNIVERSAL DEFINITIONS OF MYOCARDIALINFARCTION. THE UPPER REFERENCE LIMIT (URL) OF TROPONIN, DEFINED THE 99TH PERCENTILE OFcTnI DISTRIBUTION IN A REFERENCE POPULATION, HAS BEEN CONFIRMED THE DECISION THRESHOLDFOR [place] DIAGNOSIS. Performed By: #### B MP, HSTROPN, BNP ####[facility] L[address]blbdfaya[address] [place] [address]Dr. Garima Pulliam XR CHEST 1 Von 11-20-2022 XR CHEST 1 V Normal [facility] XR CHEST 1 Von 10-02-2022 XR CHEST 1 V Normal [facility] BNPon 09-29-2022 Natriuretic peptide B (Bld) [Mass/Vol] 107.0 pg/mL Normal <=900.0 [facility] Comment on above: Performed By: #### C MP, BNP, CMADM ####[facility] Omrtbheaqb4[address] [place] [address]Dr. Garima Pulliam CARDIAC NASH ADMITon 022 CK [Catalytic activity/Vol] 190 U/L Normal 39-308 [facility] Comment on above: Performed By: #### C MP, BNP, CMADM ####[facility] Yvvrppovwu1474 [place] [address]Dr. Garima Pulliam CK.MB [Mass/Vol] 11.11 ng/mL Critically high <=3.60 [facility] Comment on above: Performed By: #### C MP, BNP, CMADM ####[facility] Jninvpxwoh0734 [place] [address]Dr. Garima Pulliam HSTROP 11.8 pg/mL Normal 4.0-76.1 [facility] Comment on above: Result Comment: CUT- OFF POINTS HAVE BEEN ESTABLISHED BASED ON THE FOURTH UNIVERSAL DEFINITIONS OF MYOCARDIALINFARCTION. THE UPPER REFERENCE LIMIT (URL) OF TROPONIN, DEFINED THE 99TH PERCENTILE OFcTnI DISTRIBUTION IN A REFERENCE POPULATION, HAS BEEN CONFIRMED THE DECISION THRESHOLDFOR [place] DIAGNOSIS. Performed By: #### C MP, BNP, CMADM ####[facility] Eqhpnaywdt3842 [place] [address]Dr. Garima Pulliam DORIS 133 ng/mL Critically high 16-96 [facility] Comment on above: Performed By: #### C MP, BNP, CMADM ####[facility] Mtjmfzkelo35[address] [place] [address]Dr. Garima Pulliam CBC AUTO DIFFon 09-29-2022 BASO # 0.0 103/ul Normal 0.0-0.1 [facility] Comment on above: Performed By: #### C BC ####[facility] Yretvkkwwc7963 [place] [address]Dr. Garima Pulliam Basophils/100 WBC (Bld) 0.2 % Normal 0.2-2.0 [facility] Comment on above: Performed By: #### C BC ####[facility] Xxymsgupsu7966 [place] [address]Dr. Garima Pulliam EO # 0.1 103/ul Normal 0.0-0.7 [facility] Comment on above: Performed By: #### C BC ####[facility] Jcfdtyhxvj8493 [place] [address]Dr. Garima Pulliam Eosinophils/100 WBC (Bld) 1.4 % Normal 0.9-7.0 [facility] Comment on above: Performed By: #### C BC ####[facility] Edrddyovwv2881 [place] [address]Dr. Garima Pulliam Erythrocyte distribution width (RBC) [Ratio] 13.7 % Normal 11.0-15.0 [facility] Comment on above: Performed By: #### C BC ####[facility] Mziszhiqcu[address] [place], [place] [address]Dr. Garima Pulliam Hematocrit (Bld) [Volume fraction] 45.4 % Normal 42.0-54.0 [facility] Comment on above: Performed By: #### C BC ####[facility] Tjatgnvflf[address] [place], [place] [address]Dr. Garima Pulliam Hemoglobin (Bld) [Mass/Vol] 14.8 g/dL Normal 14.0-18.0 [facility] Comment on above: Performed By: #### C BC ####[facility] Uszhsfgxjv[address] [place], [place] [address]Dr. Garima Pulliam IG # 0.04 10e3/ul Critically high 0.00-0.03 [facility] Comment on above: Performed By: #### C BC ####[facility] Pcedumbizm[address] [place], [place] [address]Dr. Garima Heraclio IG % 0.5 % Normal 0.0-0.5 [facility] Comment on above: Performed By: #### C BC ####[facility] Xmeysmzzmz74[address] [place], [place] [address]DrAdalberto Pulliam LYMPH # 1.1 103/ul Critically low 1.2-3.8 [facility] Comment on above: Performed By: #### C BC ####[facility] Lrdqlhpgmn1175 [place] [address]DrAdalberto Pulliam Lymphocytes/100 WBC (Bld) 12.7 % Critically low 20.5-60.0 [facility] Comment on above: Performed By: #### C BC ####[facility] Fpbjdihrsp6166 [place] [address]DrAdalberto Pulliam MANUAL DIFF REQ NO Normal [facility] Comment on above: Performed By: #### C BC ####[facility] Povxriicbg7180 [place] [id number] Pulliam MCH (RBC) [Entitic mass] 30.0 pg Normal 25.9-34.0 [facility] Comment on above: Performed By: #### C BC ####[facility] Xttvmpygch[address] [place], [place] [address]Dr. Garima Pulliam MCHC (RBC) [Mass/Vol] 32.6 g/dL Normal 29.9-35.2 [facility] Comment on above: Performed By: #### C BC ####[facility] K[address]uzgppsr[address] [place], [place] [address]DrAdalberto Pulliam MCV (RBC) [Entitic vol] 91.9 fL Normal 80.0-94.0 [facility] Comment on above: Performed By: #### C BC ####[facility] Glakwcgler4249 [place] [address]DrAdalberto Pulliam MONO # 0.4 103/ul Normal 0.3-0.8 [facility] Comment on above: Performed By: #### C BC ####[facility] [address]rsvjq[address] [place], [place] [address]DrAdalberto Pulliam Monocytes/100 WBC (Bld) 4.8 % Normal 1.7-12.0 [facility] Comment on above: Performed By: #### C BC ####[facility] L[address]vjmepak[address] [place], [place] [address]DrAdalberto Pulliam NEUT # 7.1 103/ul Critically high 1.4-6.5 [facility] Comment on above: Performed By: #### C BC ####[facility] Dzygyrwboa9141 [place] [address]Dr. Garima Pulliam Neutrophils/100 WBC (Bld) 80.4 % Critically high 43.0-75.0 [facility] Comment on above: Performed By: #### C BC ####[facility] Yqzccvwovf6183 [place] [address]Dr. Garima Pulliam Platelet mean volume (Bld) [Entitic vol] 9.1 fL Critically low 9.5-13.5 [facility] Comment on above: Performed By: #### C BC ####[facility] Zovadomfft4663 [place] [address]Dr. Garima Pulliam PLT 200 103/ul Normal 150-450 [facility] Comment on above: Performed By: #### C BC ####[facility] Lkalqndiiy6436 [place] [address]Dr. Garima Pulliam RBC 4.94 106/ul Normal 4.70-6.10 [facility] Comment on above: Performed By: #### C BC ####[facility] Kcephorrdn6862 [place] [phone]. Garima Pulliam WBC 8.9 103/ul Normal 4.0-11.0 [facility] Comment on above: Performed By: #### C BC ####[facility] Eyoqetxtmx9039 [place] [phone]. Garima Pulliam [facility]on SARS-CoV-2 (COVID-19) RNA MARIE+probe Ql (Unsp spec) Not detected Normal NOT DETECTED [facility] Comment on above: Result Comment: When [...] for this test is supported by the [place] of Health and Human Service's declaration that [...] be used). Performed By: #### C VDTBH ####[facility] Kudzbgtewc12[address] [place] [address]Dr. Garima Pulliam LACTATE/LACTIC ACIDon 2021 Lactate [Moles/Vol] 1.7 mmol/L Normal 0.4-1.9 [facility] Comment on above: Performed By: #### L ACT ####[facility] Ddpjdhbksb[address] [place], [place] [address]Dr. Garima Pulliam PROF 14(COMP METB)on 022 Albumin [Mass/Vol] 3.8 g/dL Normal 3.4-5.0 [facility] Comment on above: Performed By: #### C MP, BNP, CMADM ####[facility] Owxujypvsk9173 [place] [address]Dr. Garima Pulliam Albumin/Globulin [Mass ratio] 1.5 {ratio} Normal [facility] Comment on above: Performed By: #### C MP, BNP, CMADM ####[facility] Fduksftgfy[address] [place], [place] [address]Dr. Garima Pulliam ALP [Catalytic activity/Vol] 62 U/L Normal 46-116 [facility] Comment on above: Performed By: #### C MP, BNP, CMADM ####[facility] Ggqwgklcjx6756 [place] [address]Dr. Garima Pulliam ALT [Catalytic activity/Vol] 37 U/L Normal 16-63 [facility] Comment on above: Performed By: #### C MP, BNP, CMADM ####[facility] Ddqjgvmimm3548 [place] [address]Dr. Garima Pulliam Anion gap [Moles/Vol] 8.0 mmol/L Normal [facility] Comment on above: Performed By: #### C MP, BNP, CMADM ####[facility] Gbkcrrvttf8452 [place] [address]Dr. Garima Pulliam AST [Catalytic activity/Vol] 20 U/L Normal 15-37 [facility] Comment on above: Performed By: #### C MP, BNP, CMADM ####[facility] Ctcqxlxiho5509 [place] [address]Dr. Garima Pulliam Bilirubin [Mass/Vol] 0.6 mg/dL Normal 0.2-1.0 [facility] Comment on above: Performed By: #### C MP, BNP, CMADM ####[facility] Rbzdgbrniw7431 [place] [address]Dr. Garima Pulliam Calcium [Mass/Vol] 9.1 mg/dL Normal 8.5-10.1 [facility] Comment on above: Performed By: #### C MP, BNP, CMADM ####[facility] Gqpyweaogw5796 [place] [address]Dr. Garima Pulliam Chloride [Moles/Vol] 103 mmol/L Normal 98-107 [facility] Comment on above: Performed By: #### C MP, BNP, CMADM ####[facility] Ycipcmeipu7274 [place] [address]Dr. Garima Pulliam CO2 [Moles/Vol] 31.8 mmol/L Normal 21.0-32.0 [facility] Comment on above: Performed By: #### C MP, BNP, CMADM ####[facility] Nndwlufxsx9187 [place] [address]Dr. Garima Pulliam Creatinine [Mass/Vol] 0.63 mg/dL Critically low 0.70-1.30 [facility] Comment on above: Performed By: #### C MP, BNP, CMADM ####[facility] Pejbjazeme4621 [place] [address]Dr. Garima Pulliam EGFR-AF ITALIAN >60 Normal >=60 [facility] Comment on above: Performed By: #### C MP, BNP, CMADM ####[facility] Ilqvzxojey8654 [place] [id number]. Garima Pulliam EGFR-NON AF ITALIAN >60 Normal >=60 [facility] Comment on above: Performed By: #### C MP, BNP, CMADM ####[facility] Urnjwmtame6684 [place] [address]Dr. Garima Pulliam Globulin (S) [Mass/Vol] 2.6 g/dL Normal [facility] Comment on above: Performed By: #### C MP, BNP, CMADM ####[facility] Jdntxtianm6441 [place] [address]Dr. Garima Pulliam Glucose [Mass/Vol] 103 mg/dL Normal 74-106 [facility] Comment on above: Performed By: #### C MP, BNP, CMADM ####[facility] Wprnjwlagm0415 [place] [address]Dr. Garima Pulliam Potassium [Moles/Vol] 3.8 mmol/L Normal 3.5-5.1 [facility] Comment on above: Performed By: #### C MP, BNP, CMADM ####[facility] Hhyaphpwol4902 [place] [address]Dr. Garima Pulliam Protein [Mass/Vol] 6.4 g/dL Normal 6.4-8.2 [facility] Comment on above: Performed By: #### C MP, BNP, CMADM ####[facility] Kwzdpdepzh2211 [place] [address]Dr. Garima Pulliam Sodium [Moles/Vol] 139 mmol/L Normal 136-145 [facility] Comment on above: Performed By: #### C MP, BNP, CMADM ####[facility] Qezhytotns3858 [place] [address]Dr. Garima Pulliam Urea nitrogen [Mass/Vol] 7.0 mg/dL Normal 7.0-18.0 [facility] Comment on above: Performed By: #### C MP, BNP, CMADM ####[facility] Wcqfxrrapl9500 [place] [address]Dr. Garima Pulliam Urea nitrogen/Creatinine [Mass ratio] 11.1 mg/mg Normal [facility] Comment on above: Performed By: #### C MP, BNP, CMADM ####[facility] Vdlbkysmnb1802 [place] [address]Dr. Chapisrenu Pulliam PROTIMEon 09-29-2022 INR Coag (PPP) [Relative time] 1.14 {INR} Normal [facility] Comment on above: Performed By: #### P T, PTT ####[facility] Cfnmmwcptn[address] [place], [place] [address]Dr. Garima Pulliam INR GUIDELINES SEE BELOW Normal [facility] Comment on above: Result Comment: WESLEY RED INR: 2.0 - 3.0 CONDITIONS NOT LISTED BELOW 2.5 - 3.5 FOR PROSTHETIC HEART VALVE REPLACEMENT 2.5 - 3.5 RECURRENT THROMBOSIS Performed By: #### P T, PTT ####[facility] Vysygzmols[address] [place], [place] [address]Dr. Garima Pulliam PT Coag (PPP) [Time] 12.2 s Critically high 9.0-11.6 [facility] Comment on above: Performed By: #### P T, PTT ####[facility] Ythgntkzdz[address] [place], [place] [address]Dr. Garima Pulliam PTTon 09-29-2022 aPTT Coag (Bld) [Time] 29.3 s Normal 22.3-36.2 [facility] Comment on above: Performed By: #### P T, PTT ####[facility] Jlkmypoppt[address] [place], [place] [address]Dr. Garima Pulliam XR CHEST 1 Von 09-29-2022 XR CHEST 1 V Normal [facility] CBC AUTO DIFFon 09-26-2022 BASO # 0.0 103/ul Normal 0.0-0.1 [facility] Comment on above: Performed By: #### C BC ####[facility] Hrbscaotew[address] [place], [place] [address]Dr. Garima Pulliam Basophils/100 WBC (Bld) 0.2 % Normal 0.2-2.0 [facility] Comment on above: Performed By: #### C BC ####[facility] Tqxjajesdc5904 [place] [address]Dr. Garima Pulliam EO # 0.1 103/ul Normal 0.0-0.7 [facility] Comment on above: Performed By: #### C BC ####[facility] Teddpgyxau[address] [place], [place] [address]Dr. Garima Pulliam Eosinophils/100 WBC (Bld) 1.0 % Normal 0.9-7.0 [facility] Comment on above: Performed By: #### C BC ####[facility] Hyzlsrgcax6[address] [place], [place] [address]Dr. Garima Pulliam Erythrocyte distribution width (RBC) [Ratio] 13.4 % Normal 11.0-15.0 [facility] Comment on above: Performed By: #### C BC ####[facility] Metqtfmgfb[address] [place], [place] [address]Dr. Garima Pulliam Hematocrit (Bld) [Volume fraction] 46.3 % Normal 42.0-54.0 [facility] Comment on above: Performed By: #### C BC ####[facility] Ixtdywbcmn64[address] [place], [place] [address]Dr. Garima Pulliam Hemoglobin (Bld) [Mass/Vol] 15.3 g/dL Normal 14.0-18.0 [facility] Comment on above: Performed By: #### C BC ####[facility] Kkzdxbgdqg[address] [place], [place] [address]Dr. Garima Pulliam IG # 0.05 10e3/ul Critically high 0.00-0.03 [facility] Comment on above: Performed By: #### C BC ####[facility] Cgycrntcwa[address] [place], [place] [address]Dr. Garima Pluliam IG % 0.4 % Normal 0.0-0.5 [facility] Comment on above: Performed By: #### C BC ####[facility] [address]qwktsbnru[address] [place], [place] [address]Dr. Garima Pulliam LYMPH # 1.7 103/ul Normal 1.2-3.8 [facility] Comment on above: Performed By: #### C BC ####[facility] Lkwvxpijlv0160 [place] [address]Dr. Chapisrenu Pulliam Lymphocytes/100 WBC (Bld) 12.7 % Critically low 20.5-60.0 [facility] Comment on above: Performed By: #### C BC ####[facility] Cqwzhpvzxa1478 [place] [address]Dr. Chapisrenu Pulliam MANUAL DIFF REQ NO Normal [facility] Comment on above: Performed By: #### C BC ####[facility] Vqheljudug[address] [place] [address]Dr. Garima Pulliam MCH (RBC) [Entitic mass] 30.1 pg Normal 25.9-34.0 [facility] Comment on above: Performed By: #### C BC ####[facility] Omnkphf[address] [place], [place] [address]Dr. Garima Pulliam MCHC (RBC) [Mass/Vol] 33.0 g/dL Normal 29.9-35.2 [facility] Comment on above: Performed By: #### C BC ####[facility] Splokcsmpi[address] [place], [place] [address]Dr. Garima Pulliam MCV (RBC) [Entitic vol] 91.1 fL Normal 80.0-94.0 [facility] Comment on above: Performed By: #### C BC ####[facility] Seipuoahtm[address] [place], [place] [address]Dr. Garima Pulliam MONO # 0.9 103/ul Critically high 0.3-0.8 [facility] Comment on above: Performed By: #### C BC ####[facility] Pmvkbqkutm[address] [place], [place] [address]Dr. Garima Pulliam Monocytes/100 WBC (Bld) 7.0 % Normal 1.7-12.0 [facility] Comment on above: Performed By: #### C BC ####[facility] Dvtvynatxn[address] [place], [place] [address]Dr. Garima Pulliam NEUT # 10.4 103/ul Critically high 1.4-6.5 [facility] Comment on above: Performed By: #### C BC ####[facility] Eugpyixhbv1447 [place] [address]Dr. Garima Pulliam Neutrophils/100 WBC (Bld) 78.7 % Critically high 43.0-75.0 [facility] Comment on above: Performed By: #### C BC ####[facility] Dohnindkzr3858 [place] [address]Dr. Garima Pulliam Platelet mean volume (Bld) [Entitic vol] 8.9 fL Critically low 9.5-13.5 [facility] Comment on above: Performed By: #### C BC ####[facility] Fkrawmwyyq4769 [place] [address]Dr. Garima Pulliam PLT 195 103/ul Normal 150-450 [facility] Comment on above: Performed By: #### C BC ####[facility] Hsgbbvusqc1818 [place] [address]Dr. Garima Pulliam RBC 5.08 106/ul Normal 4.70-6.10 [facility] Comment on above: Performed By: #### C BC ####[facility] Lhovbibdlm9329 [place] [address]Dr. Garima Pulliam WBC 13.2 103/ul Critically high 4.0-11.0 [facility] Comment on above: Performed By: #### C BC ####[facility] Lvkzylykpz0384 [place] [address]Dr. Garima Pulliam PROF 14(COMP METB)on 022 Albumin [Mass/Vol] 3.5 g/dL Normal 3.4-5.0 [facility] Comment on above: Performed By: #### C DAVID HSTROPN ####[facility] Jezaqbrnvj55[address] [place] [address]Dr. Garima Pulliam Albumin/Globulin [Mass ratio] 1.2 {ratio} Normal [facility] Comment on above: Performed By: #### C DAVID, HSTROPN ####[facility] Dqfjfgpgzk3120 [place] [address]Dr. Garima Pulliam ALP [Catalytic activity/Vol] 71 U/L Normal 46-116 [facility] Comment on above: Performed By: #### C DAVID, HSTROPN ####[facility] Ybdglzrfjj5236 [place] [address]Dr. Garima Pulliam ALT [Catalytic activity/Vol] 37 U/L Normal 16-63 [facility] Comment on above: Performed By: #### C MP, HSTROPN ####[facility] Mopyaksirp7787 [place] [address]Dr. Garima Pulliam Anion gap [Moles/Vol] 4.8 mmol/L Normal [facility] Comment on above: Performed By: #### C MP, HSTROPN ####[facility] Tcgsdzfltb1753 [place] [address]Dr. Garima Pulliam AST [Catalytic activity/Vol] 21 U/L Normal 15-37 [facility] Comment on above: Performed By: #### C DAVID, HSTROPN ####[facility] Opulmfmbgo[address] [place], [place] [address]Dr. Garima Pulliam Bilirubin [Mass/Vol] 0.3 mg/dL Normal 0.2-1.0 [facility] Comment on above: Performed By: #### C DAVID, HSTROPN ####[facility] Xiomoyihed[address] [place], [place] [address]Dr. Garima Pulliam Calcium [Mass/Vol] 8.9 mg/dL Normal 8.5-10.1 [facility] Comment on above: Performed By: #### C DAVID, HSTROPN ####[facility] Eqmnzgshzc364[address] [place], [place] [address]Dr. Garima Pulliam Chloride [Moles/Vol] 106 mmol/L Normal 98-107 [facility] Comment on above: Performed By: #### C MP, HSTROPN ####[facility] Setkgxbwgy[address] [place], [place] [address]Dr. Garima Pulliam CO2 [Moles/Vol] 29.8 mmol/L Normal 21.0-32.0 [facility] Comment on above: Performed By: #### C MP, HSTROPN ####[facility] Zcolliypfi[address] [place], [place] [address]Dr. Yilan Pulliam Creatinine [Mass/Vol] 0.68 mg/dL Critically low 0.70-1.30 [facility] Comment on above: Performed By: #### C DAVID, HSTROPN ####[facility] Bslgafdtvo3267 [place] [address]Dr. Garima Pulliam EGFR-AF ITALIAN >60 Normal >=60 [facility] Comment on above: Performed By: #### C DAVID, HSTROPN ####[facility] Zibmgltvsd2695 [place] [address]Dr. Garima Pulliam EGFR-NON AF ITALIAN >60 Normal >=60 [facility] Comment on above: Performed By: #### C DAVID, HSTROPN ####[facility] Vuzjgwcsus1703 [place] [address]Dr. Garima Pulliam Globulin (S) [Mass/Vol] 2.8 g/dL Normal [facility] Comment on above: Performed By: #### C DAVID, HSTROPN ####[facility] Utogweeizx5157 [place] [address]Dr. Garima Pulliam Glucose [Mass/Vol] 133 mg/dL Critically high 74-106 [facility] Comment on above: Performed By: #### C DAVID, HSTROPN ####[facility] Evmadfnckc2340 [place] [address]Dr. Garima Pulliam Potassium [Moles/Vol] 3.6 mmol/L Normal 3.5-5.1 [facility] Comment on above: Performed By: #### C DAVID, HSTROPN ####[facility] Tknsqmwgzz6746 [place] [address]Dr. Garima Pulliam Protein [Mass/Vol] 6.3 g/dL Critically low 6.4-8.2 [facility] Comment on above: Performed By: #### C DAVID, HSTROPN ####[facility] Utjodigcxv9306 [place] [address]Dr. Garima Pulliam Sodium [Moles/Vol] 137 mmol/L Normal 136-145 [facility] Comment on above: Performed By: #### C DAVID, HSTROPN ####[facility] Wrzbdxsfxe8951 [place] [address]Dr. Garima Pulliam Urea nitrogen [Mass/Vol] 15.0 mg/dL Normal 7.0-18.0 [facility] Comment on above: Performed By: #### C MP, HSTROPN ####[facility] Myzjwwmush1729 [place] [address]Dr. Garima Pulliam Urea nitrogen/Creatinine [Mass ratio] 22.1 mg/mg Normal [facility] Comment on above: Performed By: #### C MP, HSTROPN ####[facility] Cxvugmtogc0818 [place] [id number]. aGrima Pulliam TROPONIN, HIGH SENSITIVITYon 09-26-2022 HSTROP 12.8 pg/mL Normal 4.0-76.1 [facility] Comment on above: Result Comment: CUT- OFF POINTS HAVE BEEN ESTABLISHED BASED ON THE FOURTH UNIVERSAL DEFINITIONS OF MYOCARDIALINFARCTION. THE UPPER REFERENCE LIMIT (URL) OF TROPONIN, DEFINED THE 99TH PERCENTILE OFcTnI DISTRIBUTION IN A REFERENCE POPULATION, HAS BEEN CONFIRMED THE DECISION THRESHOLDFOR [place] DIAGNOSIS. Performed By: #### C MP, HSTROPN ####[facility] Sssrmlwmgb7228 [place] [address]Dr. Garima Pulliam XR CHEST 1 Von 09-26-2022 XR CHEST 1 V Normal [facility] XR CHEST 1 Von 09-16-2022 XR CHEST 1 V Normal [facility] CBC AUTO DIFFon 09-15-2022 BASO # 0.0 103/ul Normal 0.0-0.1 [facility] Comment on above: Performed By: #### C BC ####[facility] Ndpcctmcfu1530 [place] [phone]. Garima Heraclio Basophils/100 WBC (Bld) 0.1 % Critically low 0.2-2.0 [facility] Comment on above: Performed By: #### C BC ####[facility] Fbkfydxlbk7573 [place] [address]Dr. Garima Heraclio EO # 0.0 103/ul Normal 0.0-0.7 [facility] Comment on above: Performed By: #### C BC ####[facility] Vudqvxqkpa4852 [place] [address]Dr. Garima Pulliam Eosinophils/100 WBC (Bld) 0.1 % Critically low 0.9-7.0 [facility] Comment on above: Performed By: #### C BC ####[facility] Uvfxafwchi8239 [place] [address]Dr. Garima Pulliam Erythrocyte distribution width (RBC) [Ratio] 14.1 % Normal 11.0-15.0 [facility] Comment on above: Performed By: #### C BC ####[facility] Rpaebuhswp[address] [place], [place] [address]Dr. Garima Pulliam Hematocrit (Bld) [Volume fraction] 46.1 % Normal 42.0-54.0 [facility] Comment on above: Performed By: #### C BC ####[facility] Pbjnazwdqp430[address] [place], [place] [address]Dr. Garima Pulliam Hemoglobin (Bld) [Mass/Vol] 15.0 g/dL Normal 14.0-18.0 [facility] Comment on above: Performed By: #### C BC ####[facility] Wtrezjyisa[address] [place], [place] [address]Dr. Garima Pulliam IG # 0.03 10e3/ul Normal 0.00-0.03 [facility] Comment on above: Performed By: #### C BC ####[facility] Lknhgeupdb269[address] [place], [place] [address]Dr. Garima Pulliam IG % 0.3 % Normal 0.0-0.5 [facility] Comment on above: Performed By: #### C BC ####[facility] Dvpqnwjmsw[address] [place], [place] [address]Dr. Garima Pulliam LYMPH # 0.6 103/ul Critically low 1.2-3.8 [facility] Comment on above: Performed By: #### C BC ####[facility] Mjbmycemrb4580[address] [place], [place] [address]Dr. Garima Pulliam Lymphocytes/100 WBC (Bld) 5.8 % Critically low 20.5-60.0 [facility] Comment on above: Performed By: #### C BC ####[facility] Qpkfyqgzgf7883 [place] [address]Dr. Garima Pulliam MANUAL DIFF REQ NO Normal [facility] Comment on above: Performed By: #### C BC ####[facility] Wyzducyutd3423 [place] [address]Dr. Garima Pulliam MCH (RBC) [Entitic mass] 30.2 pg Normal 25.9-34.0 [facility] Comment on above: Performed By: #### C BC ####[facility] Xwtskymblj7178 [place] [address]Dr. Garima Pulliam MCHC (RBC) [Mass/Vol] 32.5 g/dL Normal 29.9-35.2 [facility] Comment on above: Performed By: #### C BC ####[facility] Selviozzyo[address] [place], [place] [address]Dr. Garima Pulliam MCV (RBC) [Entitic vol] 92.8 fL Normal 80.0-94.0 [facility] Comment on above: Performed By: #### C BC ####[facility] Ojrhryfvsa[address] [place], [place] [address]Dr. Garima Pulliam MONO # 0.3 103/ul Normal 0.3-0.8 [facility] Comment on above: Performed By: #### C BC ####[facility] Eqjoizluzb96[address] [place], [place] [address]Dr. Garima Pulliam Monocytes/100 WBC (Bld) 3.2 % Normal 1.7-12.0 [facility] Comment on above: Performed By: #### C BC ####[facility] Awvcnezvaq1917[address] [place], [place] [address]Dr. Garima Pulliam NEUT # 9.8 103/ul Critically high 1.4-6.5 [facility] Comment on above: Performed By: #### C BC ####[facility] Gtrfbiekpm[address] [place], [place] [address]Dr. Garima Pulliam Neutrophils/100 WBC (Bld) 90.5 % Critically high 43.0-75.0 [facility] Comment on above: Performed By: #### C BC ####[facility] Zjulwdqhpo8733 [place] [address]Dr. Garima Pulliam Platelet mean volume (Bld) [Entitic vol] 9.4 fL Critically low 9.5-13.5 [facility] Comment on above: Performed By: #### C BC ####[facility] Vxebmyintr8673 [place] [address]Dr. Garima Pulliam PLT 208 103/ul Normal 150-450 [facility] Comment on above: Performed By: #### C BC ####[facility] Fucxyodghl[address] [place], [place] [address]Dr. Garima Pulliam RBC 4.97 106/ul Normal 4.70-6.10 [facility] Comment on above: Performed By: #### C BC ####[facility] Mwslfvsakq464[address] [place], [place] [address]Dr. Garima Pulliam WBC 10.8 103/ul Normal 4.0-11.0 [facility] Comment on above: Performed By: #### C BC ####[facility] Zjvbqfibxx564[address] [place], [place] [address]Dr. Garima Pulliam PROF 14(COMP METB)on 022 Albumin [Mass/Vol] 4.0 g/dL Normal 3.4-5.0 [facility] Comment on above: Performed By: #### C MP ####[facility] Iaqixuwcyz6[address] [place], [place] [address]Dr. Garima Pulliam Albumin/Globulin [Mass ratio] 1.5 {ratio} Normal [facility] Comment on above: Performed By: #### C MP ####[facility] Umcgokpxks[address] [place], [place] [address]Dr. Garima Pulliam ALP [Catalytic activity/Vol] 73 U/L Normal 46-116 [facility] Comment on above: Performed By: #### C MP ####[facility] Mqhxqxstla9[address] [place], [place] [address]Dr. Garima Pulliam ALT [Catalytic activity/Vol] 42 U/L Normal 16-63 [facility] Comment on above: Performed By: #### C MP ####[facility] Dmzmforriq6960 [place] [address]Dr. Garima Pulliam Anion gap [Moles/Vol] 9.1 mmol/L Normal [facility] Comment on above: Performed By: #### C MP ####[facility] Rivnkccorg8376 [place] [address]Dr. Garima Pulliam AST [Catalytic activity/Vol] 28 U/L Normal 15-37 [facility] Comment on above: Performed By: #### C MP ####[facility] Tgxozqjulh7720 [place] [address]Dr. Garima Pulliam Bilirubin [Mass/Vol] 0.6 mg/dL Normal 0.2-1.0 [facility] Comment on above: Performed By: #### C MP ####[facility] Hxwrbjoulc[address] [place], [place] [address]Dr. Garima Pulliam Calcium [Mass/Vol] 8.6 mg/dL Normal 8.5-10.1 [facility] Comment on above: Performed By: #### C MP ####[facility] Rbskskdyfh46[address] [place], [place] [address]Dr. Garima Pulliam Chloride [Moles/Vol] 105 mmol/L Normal 98-107 [facility] Comment on above: Performed By: #### C MP ####[facility] Dcqpyomuum811[address] [place], [place] [address]Dr. Garima Pulliam CO2 [Moles/Vol] 28.5 mmol/L Normal 21.0-32.0 [facility] Comment on above: Performed By: #### C MP ####[facility] Qfkhjnyirk588[address] [place], [place] [address]Dr. Garima Pulliam Creatinine [Mass/Vol] 0.78 mg/dL Normal 0.70-1.30 [facility] Comment on above: Performed By: #### C MP ####[facility] Cuziacvgeh5704 [place] [address]Dr. Garima Pulliam EGFR-AF ITALIAN >60 Normal >=60 [facility] Comment on above: Performed By: #### C MP ####[facility] Oxixmcmczk2665 [place] [address]Dr. Garima Pulliam EGFR-NON AF ITALIAN >60 Normal >=60 [facility] Comment on above: Performed By: #### C MP ####[facility] Bygentesld0129 [place] [address]Dr. Garima Pulliam Globulin (S) [Mass/Vol] 2.7 g/dL Normal [facility] Comment on above: Performed By: #### C MP ####[facility] Cvzofnsobk0246 [place] [address]Dr. Garima Pulliam Glucose [Mass/Vol] 220 mg/dL Critically high 74-106 [facility] Comment on above: Performed By: #### C MP ####[facility] Dgkrdfdbcc398[address] [place], [place] [address]Dr. Garima Pulliam Potassium [Moles/Vol] 3.6 mmol/L Normal 3.5-5.1 [facility] Comment on above: Performed By: #### C MP ####[facility] Phusptjayy[address] [place], [place] [address]Dr. Garima Pulliam Protein [Mass/Vol] 6.7 g/dL Normal 6.4-8.2 The [facility] Comment on above: Performed By: #### C MP ####[facility] Xpydhknirg54[address] [place], [place] [address]Dr. Garima Pulliam Sodium [Moles/Vol] 139 mmol/L Normal 136-145 The [facility] Comment on above: Performed By: #### C MP ####[facility] Hhdaqcmhoo[address] [place], [place] [address]Dr. Garima Pulliam Urea nitrogen [Mass/Vol] 11.0 mg/dL Normal 7.0-18.0 [facility] Comment on above: Performed By: #### C MP ####[facility] Eyfdxzzplq714[address] [place], [place] [address]Dr. Garima Pulliam Urea nitrogen/Creatinine [Mass ratio] 14.1 mg/mg Normal [facility] Comment on above: Performed By: #### C MP ####[facility] Plgihgsbyu[address] [place], [place] [address]Dr. Garima Pulliam CARDIAC NASH 3-6on 2 CK [Catalytic activity/Vol] 240 U/L Normal 39-308 [facility] Comment on above: Performed By: #### C MREP ####[facility] Xaomgtfhkc8228 [place], [place] [address]Ws. Garima Pulliam CK.MB [Mass/Vol] 10.38 ng/mL Critically high <=3.60 [facility] Comment on above: Performed By: #### C MREP ####[facility] Rzhxwfzexi0481 [place] [id number]. Garima Pulliam HSTROP 18.5 pg/mL Normal 4.0-76.1 [facility] Comment on above: Result Comment: CUT- OFF POINTS HAVE BEEN ESTABLISHED BASED ON THE FOURTH UNIVERSAL DEFINITIONS OF MYOCARDIALINFARCTION. THE UPPER REFERENCE LIMIT (URL) OF TROPONIN, DEFINED THE 99TH PERCENTILE OFcTnI DISTRIBUTION IN A REFERENCE POPULATION, HAS BEEN CONFIRMED THE DECISION THRESHOLDFOR [place] DIAGNOSIS. Performed By: #### C MREP ####[facility] Yqrkqekxsp4812 [place] [id number]. Garima Pulliam CK [Catalytic activity/Vol] 257 U/L Normal 39-308 [facility] Comment on above: Performed By: #### C MREP ####[facility] Sfmxybhkkl0590 [place] [address]Dr. Garima Pulliam CK.MB [Mass/Vol] 9.89 ng/mL Critically high <=3.60 [facility] Comment on above: Performed By: #### C MREP ####[facility] Gjxvztalpa6288 [place] [address]Dr. Garima Pulliam HSTROP 16.9 pg/mL Normal 4.0-76.1 [facility] Comment on above: Result Comment: CUT- OFF POINTS HAVE BEEN ESTABLISHED BASED ON THE FOURTH UNIVERSAL DEFINITIONS OF MYOCARDIALINFARCTION. THE UPPER REFERENCE LIMIT (URL) OF TROPONIN, DEFINED THE 99TH PERCENTILE OFcTnI DISTRIBUTION IN A REFERENCE POPULATION, HAS BEEN CONFIRMED THE DECISION THRESHOLDFOR [place] DIAGNOSIS. Performed By: #### C MREP ####[facility] Toxcsnytan4119 [place] [address]Dr. Garima Pulliam CBC AUTO DIFFon 09-13-2022 BASO # 0.0 103/ul Normal 0.0-0.1 [facility] Comment on above: Performed By: #### C BC ####[facility] Qonswhpzlq[address] [place], [place] [address]Dr. Chapisrenu Pulliam Basophils/100 WBC (Bld) 0.1 % Critically low 0.2-2.0 [facility] Comment on above: Performed By: #### C BC ####[facility] Tpswjlbdgg[address] [place], [place] [address]Dr. Chapisrenu Pulliam EO # 0.0 103/ul Normal 0.0-0.7 [facility] Comment on above: Performed By: #### C BC ####[facility] Cgnoohhhdw185[address] [place], [place] [address]Dr. Chapisrenu Pulliam Eosinophils/100 WBC (Bld) 0.0 % Critically low 0.9-7.0 [facility] Comment on above: Performed By: #### C BC ####[facility] Kmnqyedaok[address] [place], [place] [address]Dr. Chapisrenu Pulliam Erythrocyte distribution width (RBC) [Ratio] 13.6 % Normal 11.0-15.0 [facility] Comment on above: Performed By: #### C BC ####[facility] Nzzgtbdhqu11[address] [place], [place] [address]Dr. Garima Pulliam Hematocrit (Bld) [Volume fraction] 48.2 % Normal 42.0-54.0 [facility] Comment on above: Performed By: #### C BC ####[facility] Lzuxcshtlh118[address] [place], [place] [address]Dr. Chapisrenu Pulliam Hemoglobin (Bld) [Mass/Vol] 16.0 g/dL Normal 14.0-18.0 [facility] Comment on above: Performed By: #### C BC ####[facility] Edqxjyizab887[address] [place], [place] [address]Dr. Garima Pulliam IG # 0.02 10e3/ul Normal 0.00-0.03 [facility] Comment on above: Performed By: #### C BC ####[facility] Olwsbiyqru1528 [place] [address]Dr. Garima Pulliam IG % 0.3 % Normal 0.0-0.5 [facility] Comment on above: Performed By: #### C BC ####[facility] Smuyrlvthn0187 [place] [address]Dr. Garima Heraclio LYMPH # 0.5 103/ul Critically low 1.2-3.8 [facility] Comment on above: Performed By: #### C BC ####[facility] Quijikenat4657 [place] [address]Dr. Chapisrenu Pulliam Lymphocytes/100 WBC (Bld) 7.7 % Critically low 20.5-60.0 [facility] Comment on above: Performed By: #### C BC ####[facility] Wpoeboyehj2466 [place] [address]Dr. Garima Pulliam MANUAL DIFF REQ NO Normal [facility] Comment on above: Performed By: #### C BC ####[facility] Uwonnyznmj2197 [place] [address]Dr. Garima Pulliam MCH (RBC) [Entitic mass] 30.6 pg Normal 25.9-34.0 [facility] Comment on above: Performed By: #### C BC ####[facility] Njwnbxatbs6744 [place] [phone]. Garima Heraclio MCHC (RBC) [Mass/Vol] 33.2 g/dL Normal 29.9-35.2 [facility] Comment on above: Performed By: #### C BC ####[facility] Eangaiysmb8709 [place] [address]Dr. Garima Pulliam MCV (RBC) [Entitic vol] 92.2 fL Normal 80.0-94.0 [facility] Comment on above: Performed By: #### C BC ####[facility] Qqarmwgzzo[address] [place], [place] [address]Dr. Garima Pulliam MONO # 0.0 103/ul Critically low 0.3-0.8 [facility] Comment on above: Performed By: #### C BC ####[facility] Gmegjdqeqe1961 [place] [address]Dr. Garima Pulliam Monocytes/100 WBC (Bld) 0.4 % Critically low 1.7-12.0 [facility] Comment on above: Performed By: #### C BC ####[facility] Abnwcpohvx2716 [place] [address]Dr. Garima Pulliam NEUT # 6.2 103/ul Normal 1.4-6.5 [facility] Comment on above: Performed By: #### C BC ####[facility] Xpvcrlpvmb0829 [place] [address]Dr. Garima Pulliam Neutrophils/100 WBC (Bld) 91.5 % Critically high 43.0-75.0 [facility] Comment on above: Performed By: #### C BC ####[facility] Guudrdiner6933 [place] [address]Dr. Garima Pulliam Platelet mean volume (Bld) [Entitic vol] 8.7 fL Critically low 9.5-13.5 [facility] Comment on above: Performed By: #### C BC ####[facility] Wuawepkbee[address] [place], [place] [address]Dr. Garima Pulliam PLT 179 103/ul Normal 150-450 [facility] Comment on above: Performed By: #### C BC ####[facility] Yixlhpbnfo1516 [place] [phone]. Garima Pulliam RBC 5.23 106/ul Normal 4.70-6.10 [facility] Comment on above: Performed By: #### C BC ####[facility] Blvmfdpddc5523 [place] [phone]. Garima Pulliam WBC 6.7 103/ul Normal 4.0-11.0 [facility] Comment on above: Performed By: #### C BC ####[facility] Whjqjueclj[address] [place], [place] [address]DrAdalberto Garima Heraclio PROF CHEM 8 (BAS METB)on Anion gap [Moles/Vol] 12.1 mmol/L Normal Th [facility] Comment on above: Performed By: #### B MP ####[facility] Mgoghcmovo0002 [place] [address]Dr. Garima Pulliam Calcium [Mass/Vol] 8.7 mg/dL Normal 8.5-10.1 [facility] Comment on above: Performed By: #### B MP ####[facility] Yvvkwzolvb3216 [place] [id number]. Garima Pulliam Chloride [Moles/Vol] 105 mmol/L Normal 98-107 [facility] [facility] Comment on above: Performed By: #### B MP ####[facility] [address] [place] [address]Dr. Garima Pulliam CO2 [Moles/Vol] 25.5 mmol/L Normal 21.0-32.0 [facility] Comment on above: Performed By: #### B MP ####[facility] [address] [place], [place] [address]Dr. Garima Pulliam Creatinine [Mass/Vol] 0.63 mg/dL Critically low 0.70-1.30 [facility] Comment on above: Performed By: #### B MP ####[facility] [address] [place] [address]Dr. Garima Pulliam EGFR-AF ITALIAN >60 Normal >=60 [facility] Comment on above: Performed By: #### B MP ####[facility] [address]eqqog[address] [place] [address]Dr. Garima Pulliam EGFR-NON AF ITALIAN >60 Normal >=60 [facility] Comment on above: Performed By: #### B MP ####[facility] [address]td[address] [place] [address]Dr. Garima Pulliam Glucose [Mass/Vol] 162 mg/dL Critically high 74-106 [facility] Comment on above: Performed By: #### B MP ####[facility] [address] [place] [address]Dr. Garima Pulliam Potassium [Moles/Vol] 3.6 mmol/L Normal 3.5-5.1 [facility] Comment on above: Performed By: #### B MP ####[facility] [address] [place] [address]Dr. Garima Pulliam Sodium [Moles/Vol] 139 mmol/L Normal 136-145 [facility] Comment on above: Performed By: #### B MP ####[facility] Wcrawnxbqs[address] [place] [address]Dr. Garima Heraclio Urea nitrogen [Mass/Vol] 9.0 mg/dL Normal 7.0-18.0 [facility] Comment on above: Performed By: #### B MP ####[facility] Xflldy[address]ps24[address] [place] [address]Dr. Garima Pulliam Urea nitrogen/Creatinine [Mass ratio] 14.3 mg/mg Normal [facility] Comment on above: Performed By: #### B DAVID ####[facility] Luboylblio[address] [place] [address]Dr. Garima Pulliam CARDIAC NASH ADMITon 022 CK [Catalytic activity/Vol] 304 U/L Normal 39-308 [facility] Comment on above: Performed By: #### B DAVID, NANCY ####[facility] [address]sl[address]bp[address] [place] [address]Dr. Garima Pulliam CK.MB [Mass/Vol] 11.81 ng/mL Critically high <=3.60 [facility] Comment on above: Performed By: #### B DAVID, NANCY ####[facility] [address]ql[address] [place] [address]Dr. Chapisrenu Pulliam HSTROP 13.3 pg/mL Normal 4.0-76.1 [facility] Comment on above: Result Comment: CUT- OFF POINTS HAVE BEEN ESTABLISHED BASED ON THE FOURTH UNIVERSAL DEFINITIONS OF MYOCARDIALINFARCTION. THE UPPER REFERENCE LIMIT (URL) OF TROPONIN, DEFINED THE 99TH PERCENTILE OFcTnI DISTRIBUTION IN A REFERENCE POPULATION, HAS BEEN CONFIRMED THE DECISION THRESHOLDFOR AK DIAGNOSIS. Performed By: #### B DAVID, CMADM ####[facility] [address] [place] [address]Dr. Garima Pulliam DORIS 133 ng/mL Critically high 16-96 [facility] Comment on above: Performed By: #### B ERVIN HERNANDEZDM ####[facility] [address]mt[address] [place] [id number]. Garima Heraclio CBC AUTO DIFFon 09-12-2022 BASO # 0.0 103/ul Normal 0.0-0.1 [facility] Comment on above: Performed By: #### C BC ####[facility] [address]pwaigsv[address] [place] [address]Dr. Chapisrenu Pulliam Basophils/100 WBC (Bld) 0.2 % Normal 0.2-2.0 [facility] Comment on above: Performed By: #### C BC ####[facility] [address] [place], [place] [address]Dr. Chapisrenu Pulliam EO # 0.2 103/ul Normal 0.0-0.7 [facility] Comment on above: Performed By: #### C BC ####[facility] X[address] [place], [place] [address]Dr. Chapisrenu Pulliam Eosinophils/100 WBC (Bld) 1.3 % Normal 0.9-7.0 [facility] Comment on above: Performed By: #### C BC ####[facility] [address] [place], [place] [address]Dr. Garima Heraclio Erythrocyte distribution width (RBC) [Ratio] 13.7 % Normal 11.0-15.0 [facility] Comment on above: Performed By: #### C BC ####[facility] [address] [place], [place] [address]Dr. Garima Heraclio Hematocrit (Bld) [Volume fraction] 46.4 % Normal 42.0-54.0 [facility] Comment on above: Performed By: #### C BC ####[facility] I[address] [place], [place] [address]Dr. Chapisrenu Pulliam Hemoglobin (Bld) [Mass/Vol] 15.7 g/dL Normal 14.0-18.0 [facility] Comment on above: Performed By: #### C BC ####[facility] [address] [place], [place] [address]Dr. Garima Pulliam IG # 0.04 10e3/ul Critically high 0.00-0.03 [facility] Comment on above: Performed By: #### C BC ####[facility] [address] [place] [address]DrAdalberto Chapisrenu Pulliam IG % 0.3 % Normal 0.0-0.5 [facility] Comment on above: Performed By: #### C BC ####[facility] [address] [place] [address]DrAdalberto Pulliam LYMPH # 1.7 103/ul Normal 1.2-3.8 [facility] Comment on above: Performed By: #### C BC ####[facility] Rmomwkekts[address] [place] [address]DrAdalberto Pulliam Lymphocytes/100 WBC (Bld) 11.5 % Critically low 20.5-60.0 [facility] Comment on above: Performed By: #### C BC ####[facility] [address]kb[address] [place] [address]DrAdalberto Pulliam MANUAL DIFF REQ NO Normal [facility] Comment on above: Performed By: #### C BC ####[facility] Ayt[address]uztkhg[address] [place] [address]DrAdalberto Garima Heraclio MCH (RBC) [Entitic mass] 31.0 pg Normal 25.9-34.0 [facility] Comment on above: Performed By: #### C BC ####[facility] [address]we[address]uz[address] [place] [address]DrAdalberto Chapisrenu Pulliam MCHC (RBC) [Mass/Vol] 33.8 g/dL Normal 29.9-35.2 [facility] Comment on above: Performed By: #### C BC ####[facility] [address]rhpo[address] [place] [address]DrAdalberto Chapisrenu Pulliam MCV (RBC) [Entitic vol] 91.7 fL Normal 80.0-94.0 [facility] Comment on above: Performed By: #### C BC ####[facility] [address]og[address]ipst[address] [place] [address]DrAdalberto Pulliam MONO # 0.8 103/ul Normal 0.3-0.8 [facility] Comment on above: Performed By: #### C BC ####[facility] [address]fmqtzqznj[address] [place] [address]Dr. Garima Pulliam Monocytes/100 WBC (Bld) 5.2 % Normal 1.7-12.0 [facility] Comment on above: Performed By: #### C BC ####[facility] Jjhpawnxcr[address] [place] [address]Dr. Garima Pulliam NEUT # 11.7 103/ul Critically high 1.4-6.5 [facility] Comment on above: Performed By: #### C BC ####[facility] [address] [place] [address]Dr. Garima Pulliam Neutrophils/100 WBC (Bld) 81.5 % Critically high 43.0-75.0 [facility] Comment on above: Performed By: #### C BC ####[facility] [address]xt[address]vm[address] [place] [address]Dr. Garima Pulliam Platelet mean volume (Bld) [Entitic vol] 8.6 fL Critically low 9.5-13.5 [facility] Comment on above: Performed By: #### C BC ####[facility] [address] [place], [place] [address]Dr. Garima Pulliam PLT 191 103/ul Normal 150-450 [facility] Comment on above: Performed By: #### C BC ####[facility] Vmbok[address]rih[address] [place] [address]Dr. Garima Pulliam RBC 5.06 106/ul Normal 4.70-6.10 [facility] Comment on above: Performed By: #### C BC ####[facility] Ypznisoxrz4[address] [place] [address]Dr. Garima Pulliam WBC 14.4 103/ul Critically high 4.0-11.0 [facility] Comment on above: Performed By: #### C BC ####[facility] [address] [place] [address]Dr. Garima Pulliam [facility] SARS-CoV-2 (COVID-19) RNA MARIE+probe Ql (Unsp spec) Not detected Normal NOT DETECTED [facility] Comment on above: Result Comment: When [...] for this test is supported by the Intelligence Director of Health and Human Service's declaration that [...] be used). Performed By: #### C VDTBH ####[facility] [address] [place] [address]Dr. Garima Pulliam LACTATE/LACTIC ACIDon 2021 Lactate [Moles/Vol] 1.0 mmol/L Normal 0.4-1.9 [facility] Comment on above: Performed By: #### L ACT ####[facility] [address] [place] [address]Dr. Garima Pulliam PROF CHEM 8 (BAS METB)on Anion gap [Moles/Vol] 11.6 mmol/L Normal [facility] Comment on above: Performed By: #### B MP, CMADM ####[facility] [address]fa[address] [place] [address]Dr. Garima Pulliam Calcium [Mass/Vol] 9.2 mg/dL Normal 8.5-10.1 [facility] Comment on above: Performed By: #### B MP, CMADM ####[facility] H[address]we[address]zh[address] [place] [address]Dr. Garima Pulliam Chloride [Moles/Vol] 105 mmol/L Normal 98-107 [facility] Comment on above: Performed By: #### B DAVID, CMADM ####[facility] [address]zxd[address] [place] [address]Dr. Garima Pulliam CO2 [Moles/Vol] 25.9 mmol/L Normal 21.0-32.0 [facility] Comment on above: Performed By: #### B DAVID, CMADM ####[facility] Mryptttdoy[address] [place] [address]Dr. Garima Pulliam Creatinine [Mass/Vol] 0.72 mg/dL Normal 0.70-1.30 [facility] Comment on above: Performed By: #### B DAVID, CMADM ####[facility] [address] [place] [address]Dr. Garima Pulliam EGFR-AF ITALIAN >60 Normal >=60 [facility] Comment on above: Performed By: #### B DAVID, CMADM ####[facility] [address] [place] [address]Dr. Garima Pulliam EGFR-NON AF ITALIAN >60 Normal >=60 [facility] Comment on above: Performed By: #### B DAVID, CMADM ####[facility] [address]omfzaq[address] [place] [address]Dr. Garima Pulliam Glucose [Mass/Vol] 111 mg/dL Critically high 74-106 [facility] Comment on above: Performed By: #### B DAVID, CMADM ####[facility] [address]uf[address] [place] [address]Dr. Garima Pulliam Potassium [Moles/Vol] 3.5 mmol/L Normal 3.5-5.1 [facility] Comment on above: Performed By: #### B DAVID, CMADM ####[facility] [address]qcjrbw[address] [place] [address]Dr. Garima Pulliam Sodium [Moles/Vol] 139 mmol/L Normal 136-145 [facility] Comment on above: Performed By: #### B DAVID, CMADM ####[facility] [address]cj[address]wd[address] [place] [address]Dr. Garima Pulliam Urea nitrogen [Mass/Vol] 7.0 mg/dL Normal 7.0-18.0 [facility] Comment on above: Performed By: #### B NANCY HERNANDEZ ####[facility] [address] [place], [place] [address]Ky. Garima Heraclio Urea nitrogen/Creatinine [Mass ratio] 9.7 mg/mg Normal [facility] Comment on above: Performed By: #### B DAVID, NANCY ####[facility] [address] [place], [place] [address]Ly. Garima Pulliam XR CHEST 1 Von 09-12-2022 XR CHEST 1 V Normal [facility] Encounters Encounter Date Encounter Type Care [...] Facility:H1 Payers Date Payer Category Payer Unknown [id number] 1960 Medicaid [id number] 1960 Unknown [id number] 1959 Unknown [id number] 1954 Unknown [id number] 2.16.84 0.1.926640.3.579.2.593 1954 Unknown [id number] 2.16.84 0.1.704245.3.579.2.593 1954 Unknown [id number] 2.16.84 0.1.696097.3.579.2.593 1954 Unknown [id number] 2.16.84 0.1.791846.3.579.2.593 1954 Unknown [id number] 2.16.84 0.1.531522.3.579.2.593 1954 Unknown [id number] 2.16.84 0.1.491596.3.579.2.593 1954 Unknown [id number] 2.16.84 0.1.521814.3.579.2.593 1954 Unknown [id number] 2.16.84 0.1.055014.3.579.2.593 1954 Unknown [id number] 2.16.84 0.1.285370.3.579.2.593 1954 Unknown [id number] 2.16.84 0.1.598279.3.579.2.593 1954 Unknown [id number] 2.16.84 0.1.899719.3.579.2.593 1954 Unknown [id number] 2.16.84 0.1.581411.3.579.2.593 1954 Unknown [id number] 2.16.84 0.1.629053.3.579.2.593 1954 Unknown [id number] 2.16.84 0.1.092904.3.579.2.593 1954 Unknown [id number] 2.16.84 0.1.420210.3.579.2.593 1954 Unknown [id number] 2.16.84 0.1.843794.3.579.2.593 1954 Unknown [id number] 2.16.84 0.1.058065.3.579.2.593 1954 Unknown [id number] 2.16.84 0.1.875958.3.579.2.593 1954 Unknown [id number] 2.16.84 0.1.306487.3.579.2.593 1954 Unknown [id number] 2.16.84 0.1.171946.3.579.2.593 Summary Purpose Family History No Family History Records Found Advance Directives No Advanced Directives Records Found Additional Source Comments (unrecognized sect ion and content) No Status Records Found INFORMATION SOURCE (unrecogn ized section and content) DATE CREATED AUTHOR 04/08/2023 [facility] FOR RECORDS PERTAINING TO PATIENTS WHO [...] BE BASED ON THE PRIMARY CLINICAL RECORDS. [facility]. provides no warranty or guarantee of the accuracy or completeness of information in this document.
== END 2024-01-31 17:22 | disposition home or self-care (01) ==
LOC: ER 17:32
PROVIDERS: Emergency Provider Emergency Medicine
DX: Z53.8 Procedure and treatment not carried out for other reasons (principal)

== ENCOUNTER 2024-02-13 20:51 | Emergency (ER) | payer MEDICARE, SELFPAY ==
[2024-02-13] VITALS (7 sets, daily range): BP systolic 153–180; BP diastolic 90–94; PULSE 70–94; RESP 15–21; TEMP 37.1; O2SAT 95–98; BMI 23.7
--- OUTSIDE RECORDS SUMMARY | 2024-02-13 20:59 | XMS_ITS | CCD ---
Author Organization [facility] Care Team Providers Care Jar Filler Name Role Phone REQUEST, NONE LISTED Primary Care Unavaila akhil ALLEN ., LEIA Admitting Unavailable TIFFANY ., LEIA Attending Unavailable CHINO ., NINA Consulting Unavailable RASTEHOME ZAPATA Consulting Unavailable PAY ., DR MIDDLETON Attending [...] Consulting Unavailable TIFFANY ., LEIA Admitting Unavailable GRECHNY ., PALMIRA FOX Consulting Unavailheriberto ALLEN ., [...] ., DR REDDING Admitting Unavailable REQUEST, DR HINES LISTED Primary Care Unavaila ble JUAN BELLO Consulting Unavailable TIFFANY ., LEIA Attending Unavailable TIFFANY ., LEIA Admitting Unavailable WEST, DR REGINALDO Johnson Consulting Unavailable REQUEST, NONE LISTED Primary Care Unavaila ble TIFFANY ., LEIA Consulting Unavailable MARKER ., DR REDDING Attending Unavailable MARKER ., DR REDDING Consulting Unavailable MARKER ., DR REDDING Admitting Unavailable REQUEST, DR NONE LISTED Primary Care Unavaila ble ELKIN, GONSALO Consulting Unavailable HILDA, DR NASH Ribeiro Admitting Unavailable HILDA, DR NASH Ribeiro Attending Unavailable STEVENS, DR NASH Ribeiro Consulting Unavailable REQUEST, DR NONE LISTED Primary Care Unavaila ble ACE, JUAN Consulting Unavailable REQUEST, DR NONE LISTED Primary Care Unavaila ble KATKO, DEMARCUS Cuellar Admitting Unavailable KATKO, DEMARCUS Cuellar Attending Unavailable [...] Attending Unavailable GRECHNY ., PALMIRA FOX Consulting Unavailheriberto e REGINLADO LUCIO Consulting Unavailable SISTER, SIMONE Consulting Unavailable AIMEE ., MARIYA Consulting Unavailable Allergies Allergy Classification Reported Allergen(s) Allergy Type Date of Onset Reaction(s) Facility (1 source) Penicillin Drug Allergy [facility] Repository Problems Active Problems Problem Classification [...] 03-27-2023 Episodic Other aftercare (1 source) 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; Translations: [OTH ASSISTED CURRENT DRUG THERAPY] Onset: 04-07-2023 Episodic Other [...] BASO # 0.0 103/ul Normal 0.0-0.1 [facility] Comment on above: Performed By: #### C BC ####[facility] Igxmltarvj[address] [place], [place] [address]DrAdalberto Pulliam Basophils/100 WBC (Bld) 0.3 % Normal 0.2-2.0 [facility] Comment on above: Performed By: #### C BC ####[facility] Cepcgarvpi[address] [place], [place] [address]DrAdalberto Pulliam EO # 0.3 103/ul Normal 0.0-0.7 [facility] Comment on above: Performed By: #### C BC ####[facility] Avqmkykwbd[address] [place], [place] [address]DrAdalberto Pulliam Eosinophils/100 WBC (Bld) 2.8 % Normal 0.9-7.0 [facility] Comment on above: Performed By: #### C BC ####[facility] [address]ujbueemn[address] [place] [address]Dr. Garima Pulliam Erythrocyte distribution width (RBC) [Ratio] 13.4 % Normal 11.0-15.0 [facility] Comment on above: Performed By: #### C BC ####[facility] Gbfrqaihnq[address] [place], [place] [address]Dr. Garima Pulliam Hematocrit (Bld) [Volume fraction] 45.7 % Normal 42.0-54.0 [facility] Comment on above: Performed By: #### C BC ####[facility] Otlkdnswfu8[address] [place], [place] [address]Dr. Garima Pulliam Hemoglobin (Bld) [Mass/Vol] 15.2 g/dL Normal 14.0-18.0 [facility] Comment on above: Performed By: #### C BC ####[facility] Gnhkuklmbn[address] [place], [place] [address]Dr. Garima Pulliam IG # 0.02 10e3/ul Normal 0.00-0.03 [facility] Comment on above: Performed By: #### C BC ####[facility] Qsqbvoyigd7801[address] [place], [place] [address]Dr. Garima Pulliam IG % 0.2 % Normal 0.0-0.5 [facility] Comment on above: Performed By: #### C BC ####[facility] Ugvntoznlj414[address] [place], [place] [address]Dr. Garima Pulliam LYMPH # 2.1 103/ul Normal 1.2-3.8 [facility] Comment on above: Performed By: #### C BC ####[facility] Bglaunmpvk[address] [place], [place] [address]Dr. Garima Pulliam Lymphocytes/100 WBC (Bld) 23.7 % Normal 20.5-60.0 [facility] Comment on above: Performed By: #### C BC ####[facility] [address] [place] [address]. Chapisrenu Pulliam MANUAL DIFF REQ NO Normal [facility] Comment on above: Performed By: #### C BC ####[facility] X[address]pricv[address] [place] [address]Dr. Garima Heraclio MCH (RBC) [Entitic mass] 30.4 pg Normal 25.9-34.0 [facility] Comment on above: Performed By: #### C BC ####[facility] Jqymswoptk293[address] [place], [place] [address]Dr. Garima Heraclio MCHC (RBC) [Mass/Vol] 33.3 g/dL Normal 29.9-35.2 [facility] Comment on above: Performed By: #### C BC ####[facility] Vslaxxbhdl[address] [place], [place] [address]Dr. Garima Pulliam MCV (RBC) [Entitic vol] 91.4 fL Normal 80.0-94.0 [facility] Comment on above: Performed By: #### C BC ####[facility] Vztmjtpude41[address] [place], [place] [address]Dr. Garima Pulliam MONO # 0.7 103/ul Normal 0.3-0.8 [facility] Comment on above: Performed By: #### C BC ####[facility] Phpofvtitq733[address] [place], [place] [address]Dr. Garima Pulliam Monocytes/100 WBC (Bld) 8.3 % Normal 1.7-12.0 [facility] Comment on above: Performed By: #### C BC ####[facility] Hzlmeqhvhs436[address] [place], [place] [address]DrAdalberto Pulliam NEUT # 5.8 103/ul Normal 1.4-6.5 [facility] Comment on above: Performed By: #### C BC ####[facility] Ghrbgzczvz[address] [place], [place] [address]Dr. Garima Pulliam Neutrophils/100 WBC (Bld) 64.7 % Normal 43.0-75.0 [facility] Comment on above: Performed By: #### C BC ####[facility] Convvkrjqk9[address] [place], [place] [address]Dr. Garima Heraclio Platelet mean volume (Bld) [Entitic vol] 8.6 fL Critically low 9.5-13.5 [facility] Comment on above: Performed By: #### C BC ####[facility] Fyzzhhjtnl5034 [place] [address]Dr. Chapisrenu Heraclio PLT 230 103/ul Normal 150-450 [facility] Comment on above: Performed By: #### C BC ####[facility] Unfkqajekf52[address] [place] [address]Dr. Garima Pulliam RBC 5.00 106/ul Normal 4.70-6.10 [facility] Comment on above: Performed By: #### C BC ####[facility] Wovoxaldak[address] [place], [place] [address]Dr. Garima Pulliam WBC 9.0 103/ul Normal 4.0-11.0 [facility] Comment on above: Performed By: #### C BC ####[facility] Zggmejoddr[address] [place], [place] [address]DrAdalberto Pulliam MAGNESIUMon 04-04-2023 Magnesium [Mass/Vol] 1.8 mg/dL Normal 1.8-2.4 [facility] Comment on above: Performed By: #### M G ####[facility] Aimrdetgpa18[address] [place], [place] [address]DrAdalberto Pulliam PROF 14(COMP METB)on 023 Albumin [Mass/Vol] 3.8 g/dL Normal 3.4-5.0 [facility] Comment on above: Performed By: #### C MP ####[facility] Edklsaubah[address] [place] [address]DrAdalberto Pulliam Albumin/Globulin [Mass ratio] 1.2 {ratio} Normal [facility] Comment on above: Performed By: #### C MP ####[facility] Kaayzgszel[address]13 [place] [address]DrAdalberto Pulliam ALP [Catalytic activity/Vol] 84 U/L Normal 46-116 [facility] Comment on above: Performed By: #### C MP ####[facility] Ciokkkbqui74[address] [place] [id number]. Garima Pulliam ALT [Catalytic activity/Vol] 31 U/L Normal 16-63 [facility] Comment on above: Performed By: #### C MP ####[facility] Ubbqedqqvl65[address] [place], [place] [address]Dr. Garima Pulliam Anion gap [Moles/Vol] 12.2 mmol/L Normal [facility] Comment on above: Performed By: #### C MP ####[facility] Gssgtemdeq339[address] [place], [place] [address]Dr. Garima Pulliam AST [Catalytic activity/Vol] 23 U/L Normal 15-37 [facility] Comment on above: Performed By: #### C MP ####[facility] Xtbbsflruz638[address] [place], [place] [address]Dr. Garima Pulliam Bilirubin [Mass/Vol] 0.5 mg/dL Normal 0.2-1.0 [facility] Comment on above: Performed By: #### C MP ####[facility] Tyhratphpe[address] [place], [place] [address]Dr. Garima Pulliam Calcium [Mass/Vol] 9.2 mg/dL Normal 8.5-10.1 [facility] Comment on above: Performed By: #### C MP ####[facility] Pbjrcswrdl813[address] [place], [place] [address]Dr. Garima Pulliam Chloride [Moles/Vol] 103 mmol/L Normal 98-107 [facility] Comment on above: Performed By: #### C MP ####[facility] Wgnqphabsp55[address] [place], [place] [address]Dr. Garima Pulliam CO2 [Moles/Vol] 28.5 mmol/L Normal 21.0-32.0 [facility] Comment on above: Performed By: #### C MP ####[facility] Zsmcyuczwx422[address] [place], [place] [address]Dr. Garima Pulliam Creatinine [Mass/Vol] 0.74 mg/dL Normal 0.70-1.30 [facility] Comment on above: Performed By: #### C MP ####[facility] Xpaigtkmmy90000[address] [place], [place] [address]Dr. Garima Pulliam EGFR-AF ST LUCIAN >60 Normal >=60 [facility] Comment on above: Performed By: #### C MP ####[facility] Ekotxrrbit[address] [place] [id number]. Garima Pulliam EGFR-NON AF [facility] LUCIAN >60 Normal >=60 [facility] Comment on above: Performed By: #### C MP ####[facility] Bfhedjoywq0280 [place] [id number]. Garima Heraclio Globulin (S) [Mass/Vol] 3.1 g/dL Normal [facility] Comment on above: Performed By: #### C MP ####[facility] Fkglpajynf2920 [place] [address]Dr. Garima Heraclio Glucose [Mass/Vol] 93 mg/dL Normal 74-106 [facility] Comment on above: Performed By: #### C MP ####[facility] Vnxqmgdubz4846 [place] [address]Dr. Garima Heraclio Potassium [Moles/Vol] 3.7 mmol/L Normal 3.5-5.1 [facility] Comment on above: Performed By: #### C MP ####[facility] Jknzryhcaw[address] [place], [place] [address]Dr. Garima Heraclio Protein [Mass/Vol] 6.9 g/dL Normal 6.4-8.2 [facility] Comment on above: Performed By: #### C MP ####[facility] Cmjpbqikas2692 [place] [address]Dr. Garima Heraclio Sodium [Moles/Vol] 140 mmol/L Normal 136-145 [facility] Comment on above: Performed By: #### C MP ####[facility] Bvtbjdzvfj0813 [place] [address]Dr. Garima Heraclio Urea nitrogen [Mass/Vol] 8.0 mg/dL Normal 7.0-18.0 [facility] Comment on above: Performed By: #### C MP ####[facility] Ziunplicwd6616 [place] [id number]. Chapisrenu Heraclio Urea nitrogen/Creatinine [Mass ratio] 10.8 mg/mg Normal [facility] Comment on above: Performed By: #### C MP ####[facility] Rknetrlqga4268 [place] [address]Dr. Garima Pulliam AMMONIAon 03-30-2023 Ammonia (P) [Moles/Vol] 11 umol/L Normal 11-32 [facility] Comment on above: Performed By: #### A MM ####[facility] Lfymyptxir[address] [place], [place] [address]Dr. Garima Pulliam CARDIAC NASH ADMITon 023 CK [Catalytic activity/Vol] 232 U/L Normal 39-308 [facility] Comment on above: Performed By: #### C NANCY HERNANDEZ ####[facility] Kbdggschcv[address] [place], [place] [address]Dr. Garima Pulliam CK.MB [Mass/Vol] 4.83 ng/mL Critically high <=3.60 [facility] Comment on above: Performed By: #### C NANCY HERNANDEZ ####[facility] Oxequdxcjb706[address] [place], [place] [address]Dr. Garima Heraclio HSTROP 10.5 pg/mL Normal 4.0-76.1 [facility] Comment on above: Result Comment: CUT- OFF POINTS HAVE BEEN ESTABLISHED BASED ON THE FOURTH UNIVERSAL DEFINITIONS OF MYOCARDIALINFARCTION. THE UPPER REFERENCE LIMIT (URL) OF TROPONIN, DEFINED THE 99TH PERCENTILE OFcTnI DISTRIBUTION IN A REFERENCE POPULATION, HAS BEEN CONFIRMED THE DECISION THRESHOLDFOR SC DIAGNOSIS. Performed By: #### C NANCY HERNANDEZ ####[facility] Wxxjibphjj[address] [place], [place] [address]Dr. Garima Pulliam DORIS 79 ng/mL Normal 16-96 [facility] Comment on above: Performed By: #### C NANCY HERNANDEZ ####[facility] Coayliwank[address] [place], [place] [address]Dr. Chapisrenu Pulliam CBC AUTO DIFFon 03-30-2023 BASO # 0.0 103/ul Normal 0.0-0.1 [facility] Comment on above: Performed By: #### C BC ####[facility] Lnaridqlgn[address] [place] [address]Dr. Garima Pulliam Basophils/100 WBC (Bld) 0.1 % Critically low 0.2-2.0 [facility] Comment on above: Performed By: #### C BC ####[facility] Ridhbfgtae01[address] [place], [place] [address]Dr. Garima Pulliam EO # 0.3 103/ul Normal 0.0-0.7 [facility] Comment on above: Performed By: #### C BC ####[facility] Mqsjvmnayt9[address] [place], [place] [address]Dr. Garima Pulliam Eosinophils/100 WBC (Bld) 3.3 % Normal 0.9-7.0 [facility] Comment on above: Performed By: #### C BC ####[facility] Vsogkbhwip[address] [place], [place] [address]Dr. Garima Pulliam Erythrocyte distribution width (RBC) [Ratio] 13.5 % Normal 11.0-15.0 [facility] Comment on above: Performed By: #### C BC ####[facility] Fxliurvdcj[address] [place], [place] [address]Dr. Garima Pulliam Hematocrit (Bld) [Volume fraction] 42.9 % Normal 42.0-54.0 [facility] Comment on above: Performed By: #### C BC ####[facility] Nhilmvpivq[address] [place], [place] [address]Dr. Garima Pulliam Hemoglobin (Bld) [Mass/Vol] 13.9 g/dL Critically low 14.0-18.0 [facility] Comment on above: Performed By: #### C BC ####[facility] Cralvtjjpx[address] [place], [place] [address]Dr. Garima Pulliam IG # 0.01 10e3/ul Normal 0.00-0.03 [facility] Comment on above: Performed By: #### C BC ####[facility] Rtqrseeuti[address] [place], [place] [address]Dr. Garima Pulliam IG % 0.1 % Normal 0.0-0.5 [facility] Comment on above: Performed By: #### C BC ####[facility] [address]isuvtuznu[address] [place] [id number]. Garima Heraclio LYMPH # 1.7 103/ul Normal 1.2-3.8 [facility] Comment on above: Performed By: #### C BC ####[facility] Fprosuyspj6411 [place] [id number]. Garima Heraclio Lymphocytes/100 WBC (Bld) 22.8 % Normal 20.5-60.0 [facility] Comment on above: Performed By: #### C BC ####[facility] Dbyehmfxgq2246 [place] [address]Dr. Chapisrenu Pulliam MANUAL DIFF REQ NO Normal [facility] Comment on above: Performed By: #### C BC ####[facility] Dmvhwmnsys20[address] [place] [address]Dr. Garima Heraclio MCH (RBC) [Entitic mass] 30.5 pg Normal 25.9-34.0 [facility] Comment on above: Performed By: #### C BC ####[facility] Qdkixspcsu0548 [place] [address]Dr. Garima Heraclio MCHC (RBC) [Mass/Vol] 32.4 g/dL Normal 29.9-35.2 [facility] Comment on above: Performed By: #### C BC ####[facility] Ctcsuvyofd22[address] [place] [id number]. Chapisrenu Pulliam MCV (RBC) [Entitic vol] 94.1 fL Critically high 80.0-94.0 [facility] Comment on above: Performed By: #### C BC ####[facility] Nitjgdrqlp0388 [place] [address]Dr. Chapisrenu Pulliam MONO # 0.7 103/ul Normal 0.3-0.8 [facility] Comment on above: Performed By: #### C BC ####[facility] Zxfcowxknh2209 [place] [address]Dr. Chapisrenu Pulliam Monocytes/100 WBC (Bld) 8.6 % Normal 1.7-12.0 [facility] Comment on above: Performed By: #### C BC ####[facility] Wthbhbssyb7042 [place] [id number]. Garima Pulliam NEUT # 4.9 103/ul Normal 1.4-6.5 [facility] Comment on above: Performed By: #### C BC ####[facility] Uczrpqsmba3[address] [place] [address]Dr. Garima Pulliam Neutrophils/100 WBC (Bld) 65.1 % Normal 43.0-75.0 [facility] Comment on above: Performed By: #### C BC ####[facility] Ndzrcnccsr2470 [place] [address]Dr. Garima Pulliam Platelet mean volume (Bld) [Entitic vol] 8.5 fL Critically low 9.5-13.5 [facility] Comment on above: Performed By: #### C BC ####[facility] Bkmimafvax2646 [place] [id number]. Garima Pulliam PLT 219 103/ul Normal 150-450 [facility] Comment on above: Performed By: #### C BC ####[facility] Ooywbzvqjz5262 [place] [address]Dr. Garima Pulliam RBC 4.56 106/ul Critically low 4.70-6.10 [facility] Comment on above: Performed By: #### C BC ####[facility] Rsztvpfvhm7932 [place] [id number]. Garima Pulliam WBC 7.6 103/ul Normal 4.0-11.0 [facility] Comment on above: Performed By: #### C BC ####[facility] Kpsnzcpmjj6576 [place] [id number]. Garima Pulliam LACTATE/LACTIC ACIDon 2022 Lactate [Moles/Vol] 1.2 mmol/L Normal 0.4-2.0 [facility] Comment on above: Performed By: #### L ACT ####[facility] Ejprjmhqow33[address] [place] [address]Dr. Garima Pulliam MAGNESIUMon 03-30-2023 Magnesium [Mass/Vol] 1.8 mg/dL Normal 1.8-2.4 [facility] Comment on above: Performed By: #### M G ####[facility] Abhrqpbbpz[address] [place] [address]Dr. Garima Pulliam PROF 14(COMP METB)on 023 Albumin [Mass/Vol] 3.5 g/dL Normal 3.4-5.0 [facility] Comment on above: Performed By: #### C DAVID, CMADM ####[facility] Ozwubumyqq70[address] [place] [address]Dr. Garima Pulliam Albumin/Globulin [Mass ratio] 1.2 {ratio} Normal [facility] Comment on above: Performed By: #### C DAVID, CMADM ####[facility] Ggvrcenjqg5602 [place] [address]Dr. Garima Pulliam ALP [Catalytic activity/Vol] 85 U/L Normal 46-116 [facility] Comment on above: Performed By: #### C DAVID, CMADM ####[facility] Fpjzrqxtjk6443 [place] [address]Dr. Garima Pulliam ALT [Catalytic activity/Vol] 29 U/L Normal 16-63 [facility] Comment on above: Performed By: #### C DAVID, CMADM ####[facility] Vxorasnzud7541 [place] [address]Dr. Garima Pulliam Anion gap [Moles/Vol] 8.0 mmol/L Normal [facility] Comment on above: Performed By: #### C DAVID, CMADM ####[facility] Jqflcmhmsr4939 [place] [address]Dr. Garima Pulliam AST [Catalytic activity/Vol] 18 U/L Normal 15-37 [facility] Comment on above: Performed By: #### C DAVID, CMADM ####[facility] Llsjcmphiy2710 [place] [address]Dr. Garima Pulliam Bilirubin [Mass/Vol] 0.4 mg/dL Normal 0.2-1.0 [facility] Comment on above: Performed By: #### C DAVID, CMADM ####[facility] Njgoruwliq4657 [place] [address]Dr. Garima Pulliam Calcium [Mass/Vol] 8.8 mg/dL Normal 8.5-10.1 [facility] Comment on above: Performed By: #### C DAVID, NANCY ####[facility] Zrhclkeumq3628 [place] [address]Dr. Chapisrenu Heraclio Chloride [Moles/Vol] 108 mmol/L Critically high 98-107 [facility] Comment on above: Performed By: #### C DAVID, CMADM ####[facility] Wscqgmcaeh8864 [place] [address]Dr. Chapisrenu Heraclio CO2 [Moles/Vol] 29.6 mmol/L Normal 21.0-32.0 [facility] Comment on above: Performed By: #### C DAVID, NANCY ####[facility] Jgohjixzfo[address] [place], [place] [address]Dr. Garima Pulliam Creatinine [Mass/Vol] 0.77 mg/dL Normal 0.70-1.30 [facility] Comment on above: Performed By: #### C DAVID, CMAANA ROSA ####[facility] Liffnzlyge[address] [place], [place] [address]Dr. Garima Heraclio EGFR-AF ST LUCIAN >60 Normal >=60 [facility] Comment on above: Performed By: #### C DAVID, NANCY ####[facility] [address]afbadhoux[address] [place], [place] [address]Dr. Garima Heraclio EGFR-NON AF [facility] LUCIAN >60 Normal >=60 [facility] Comment on above: Performed By: #### C DAVID, CMADM ####[facility] Pcckdxtprb[address] [place], [place] [address]Dr. Garima Pulliam Globulin (S) [Mass/Vol] 2.8 g/dL Normal [facility] Comment on above: Performed By: #### C DAVID, CMADM ####[facility] Kdcuyxmihz332[address] [place], [place] [address]Dr. Garima Pulliam Glucose [Mass/Vol] 207 mg/dL Critically high 74-106 [facility] Comment on above: Performed By: #### C DAVID, CMADM ####[facility] Nbymryoxfm9[address] [place], [place] [address]Dr. Garima Pulliam Potassium [Moles/Vol] 4.6 mmol/L Normal 3.5-5.1 [facility] Comment on above: Performed By: #### C DAVID, NANCY ####[facility] Mlglcyizvl4088 [place] [address]Dr. Garima Pulliam Protein [Mass/Vol] 6.3 g/dL Critically low 6.4-8.2 [facility] Comment on above: Performed By: #### C DAVID, NANCY ####[facility] Zklejchwga9452 [place] [address]Dr. Garima Pulliam Sodium [Moles/Vol] 141 mmol/L Normal 136-145 [facility] Comment on above: Performed By: #### C DAVID, NANCY ####[facility] Dunmgorzvq[address] [place], [place] [address]Dr. Garima Pulliam Urea nitrogen [Mass/Vol] 9.0 mg/dL Normal 7.0-18.0 [facility] Comment on above: Performed By: #### C NANCY HERNANDEZ ####[facility] Gqmcqsnves[address] [place], [place] [address]Dr. Garima Pulliam Urea nitrogen/Creatinine [Mass ratio] 11.7 mg/mg Normal [facility] Comment on above: Performed By: #### C NANCY HERNANDEZ ####[facility] Thbiejumpb[address] [place], [place] [address]Dr. Garima Pulliam XR CHEST 1 Von 03-30-2023 XR CHEST 1 V Normal [facility] BNPon 03-27-2023 Natriuretic peptide B (Bld) [Mass/Vol] 251.0 pg/mL Normal <=900.0 [facility] Comment on above: Performed By: #### C MP, BNP, LIPID ####[facility] Txnqpayknx[address] [place], [place] [address]Dr. Garima Pulliam GLYCOHEMOGLOBIN A1Con 2022 ADA RECOMMENDATION SEE BELOW Normal [facility] Comment on above: Result Comment: ADA RECOMMENDED LIMIT 4.0 - 6.0 ADA THERAPEUTIC TARGET < 7.0 ACTION SUGGESTED > 7.0 Performed By: #### A 1C ####[facility] Ewrcdxzfzc110[address] [place] [address]Dr. Garima Pulliam Glucose [Mass/Vol] 180 mg/dL Normal [facility] Comment on above: Performed By: #### A 1C ####[facility] Vpsckrfydm[address] [place], [place] [address]Dr. Garima Pulliam HbA1c (Bld) [Mass fraction] 7.9 % Critically high 4.5-6.2 [facility] Comment on above: Performed By: #### A 1C ####[facility] Tsxjebxwxl[address] [place], [place] [address]Dr. Garima Pulliam HEMOGRAM AND PLATELon 2022 Hematocrit (Bld) [Volume fraction] 45.7 % Normal 42.0-54.0 [facility] Comment on above: Performed By: #### H H ####[facility] Izasejpmcv[address] [place], [place] [address]Dr. Chapisrenu Pulliam Hemoglobin (Bld) [Mass/Vol] 15.1 g/dL Normal 14.0-18.0 [facility] Comment on above: Performed By: #### H H ####[facility] Doftnmmxlt[address] [place], [place] [address]Dr. Garima Pulliam MCH (RBC) [Entitic mass] 30.0 pg Normal 25.9-34.0 [facility] Comment on above: Performed By: #### H H ####[facility] Akdlgjenim[address] [place], [place] [address]Dr. Garima Pulliam MCHC (RBC) [Mass/Vol] 33.0 g/dL Normal 29.9-35.2 [facility] Comment on above: Performed By: #### H H ####[facility] Nzkhfvdvxm[address] [place], [place] [address]Dr. Garima Pulliam MCV (RBC) [Entitic vol] 90.7 fL Normal 80.0-94.0 [facility] Comment on above: Performed By: #### H H ####[facility] Zzjltwvxxu[address] [place], [place] [address]Dr. Chapisrenu Pulliam PLT 222 103/ul Normal 150-450 [facility] Comment on above: Performed By: #### H H ####[facility] [address]rzd[address] [place] [id number]. Garima Pulliam RBC 5.04 106/ul Normal 4.70-6.10 [facility] Comment on above: Performed By: #### H H ####[facility] Gqqmlkguat23[address] [place] [id number]. Garima Pulliam WBC 8.7 103/ul Normal 4.0-11.0 [facility] Comment on above: Performed By: #### H H ####[facility] Ipnrwjctjd9[address] [place] [id number]. Garima Pulliam LIPID PROFILEon 03-27-2023 CHOL-HDL RATIO NORM SEE BELOW Normal [facility] Comment on above: Result Comment: 3.3 - 4.4 LOW RISK 4.4 - 7.1 AVERAGE RISK 7.1 - 11.0 MODERATE RISK >11.0 HIGH RISK Performed By: #### C MP, BNP, LIPID ####[facility] Qfwqwzco[address] [place] [address]Dr. Garima Pulliam Cholesterol [Mass/Vol] 113 mg/dL Normal <=200 [facility] Comment on above: Performed By: #### C MP, BNP, LIPID ####[facility] Xlfqskpxrv[address] [place] [address]Dr. Garima Pulliam Cholesterol in HDL [Mass/Vol] 51 mg/dL Normal 40-60 [facility] Comment on above: Performed By: #### C MP, BNP, LIPID ####[facility] Umgujxwqwg36[address] [place] [address]Dr. Garima Pulliam Cholesterol in LDL [Mass/Vol] 49.8 mg/dL Normal [facility] Comment on above: Performed By: #### C MP, BNP, LIPID ####[facility] Zjhnrj[address]xu39[address] [place] [address]Dr. Garima Pulliam Cholesterol.total/Cho lesterol in HDL [Mass ratio] 2.2 {ratio} Normal [facility] Comment on above: Performed By: #### C MP, BNP, LIPID ####[facility] O[address]yfgpq[address] [place] [address]Dr. Garima Pulliam HDL NORMAL > or = 60 mg/dl - LOW CARDIOVASCULAR RISK <40 mg/dl - HIGH CARDIOVASCULAR RISK Normal [facility] Comment on above: Performed By: #### C MP, BNP, LIPID ####[facility] Cqvkfmjehg[address] [place] [address]Dr. Garima Pulliam LDL CALC NORMAL SEE BELOW Normal [facility] Comment on above: Result Comment: <100 mg/dl OPTIMAL 100 - 129 mg/dl NEAR OR ABOVE OPTIMAL 130 - 159 mg/dl BORDERLINE HIGH 160 - 189 mg/dl HIGH >190 mg/dl VERY HIGH Performed By: #### C MP, BNP, LIPID ####[facility] Rvkbyfxudh[address] [place] [address]Dr. Garima Pulliam Triglyceride [Mass/Vol] 61 mg/dL Normal <=150 [facility] Comment on above: Performed By: #### C MP, BNP, LIPID ####[facility] Aqxpckjlgb1885 [place] [address]Dr. Garima Pulliam VLDL CALC 12.2 mg/dL Normal [facility] Comment on above: Performed By: #### C MP, BNP, LIPID ####[facility] Mogyhftuwz[address] [place] [address]Dr. Garima Pulliam PROF 14(COMP METB)on 023 Albumin [Mass/Vol] 3.5 g/dL Normal 3.4-5.0 [facility] Comment on above: Performed By: #### C MP, BNP, LIPID ####[facility] Tiutbzqtgs15[address] [place] [address]Dr. Garima Pulliam Albumin/Globulin [Mass ratio] 1.2 {ratio} Normal [facility] Comment on above: Performed By: #### C MP, BNP, LIPID ####[facility] Omgeduhrwn7560 [place] [address]Dr. Garima Pulliam ALP [Catalytic activity/Vol] 82 U/L Normal 46-116 [facility] Comment on above: Performed By: #### C MP, BNP, LIPID ####[facility] Qjfneqhwmn[address] [place] [address]Dr. Garima Pulliam ALT [Catalytic activity/Vol] 33 U/L Normal 16-63 [facility] Comment on above: Performed By: #### C MP, BNP, LIPID ####[facility] Mytibstzpj4504 [place] [address]Dr. Garima Pulliam Anion gap [Moles/Vol] 9.9 mmol/L Normal [facility] Comment on above: Performed By: #### C MP, BNP, LIPID ####[facility] Spqkhsgirk4932 [place] [address]Dr. Garima Pulliam AST [Catalytic activity/Vol] 24 U/L Normal 15-37 [facility] Comment on above: Performed By: #### C MP, BNP, LIPID ####[facility] Hxhhyvmhbx3478 [place] [address]Dr. Garima Pulliam Bilirubin [Mass/Vol] 0.6 mg/dL Normal 0.2-1.0 [facility] Comment on above: Performed By: #### C MP, BNP, LIPID ####[facility] Fcyexgeboo5250 [place] [address]Dr. Garima Pulliam Calcium [Mass/Vol] 9.2 mg/dL Normal 8.5-10.1 [facility] Comment on above: Performed By: #### C MP, BNP, LIPID ####[facility] Oxvmnqlqia12[address] [place] [address]Dr. Garima Pulliam Chloride [Moles/Vol] 106 mmol/L Normal 98-107 [facility] Comment on above: Performed By: #### C MP, BNP, LIPID ####[facility] Golvanwirc[address] [place] [address]Dr. Garima Pulliam CO2 [Moles/Vol] 32.3 mmol/L Critically high 21.0-32.0 [facility] Comment on above: Performed By: #### C MP, BNP, LIPID ####[facility] Jtnhzcebez6463 [place] [address]Dr. Garima Pulliam Creatinine [Mass/Vol] 0.70 mg/dL Normal 0.70-1.30 [facility] Comment on above: Performed By: #### C MP, BNP, LIPID ####[facility] F[address]huqnemd[address] [place] [id number]. Garima Pulliam EGFR-AF [facility] LUCIAN >60 Normal >=60 [facility] Comment on above: Performed By: #### C MP, BNP, LIPID ####[facility] Dqzwidctyl4591 [place] [id number]. Garima Pulliam EGFR-NON AF [facility]CI[facility] >60 Normal >=60 [facility] Comment on above: Performed By: #### C MP, BNP, LIPID ####[facility] Baydaugxeu380[address] [place] [address]Dr. Garima Pulliam Globulin (S) [Mass/Vol] 2.9 g/dL Normal [facility] Comment on above: Performed By: #### C MP, BNP, LIPID ####[facility] Hfunxgjdev1645 [place] [address]Dr. Garima Pulliam Glucose [Mass/Vol] 111 mg/dL Critically high 74-106 [facility] Comment on above: Performed By: #### C MP, BNP, LIPID ####[facility] Wvmwafjags0652 [place] [address]Dr. Garima Pulliam Potassium [Moles/Vol] 4.2 mmol/L Normal 3.5-5.1 [facility] Comment on above: Performed By: #### C MP, BNP, LIPID ####[facility] Uqqcjzyidb2112 [place] [address]Dr. Garima Pulliam Protein [Mass/Vol] 6.4 g/dL Normal 6.4-8.2 [facility] Comment on above: Performed By: #### C MP, BNP, LIPID ####[facility] Mqbvfaeqzf5585 [place] [address]Dr. Garima Pulliam Sodium [Moles/Vol] 144 mmol/L Normal 136-145 [facility] Comment on above: Performed By: #### C MP, BNP, LIPID ####[facility] Cgchyicfwt0289 [place] [address]Dr. Garima Pulliam Urea nitrogen [Mass/Vol] 7.0 mg/dL Normal 7.0-18.0 [facility] Comment on above: Performed By: #### C MP, BNP, LIPID ####[facility] Kajykmcbci[address] [place], [place] [address]Dr. Garima Pulliam Urea nitrogen/Creatinine [Mass ratio] 10.0 mg/mg Normal [facility] Comment on above: Performed By: #### C MP, BNP, LIPID ####[facility] Tnmkssxwzl114[address] [place], [place] [address]Dr. Garima Pulliam BNPon 03-22-2023 Natriuretic peptide B (Bld) [Mass/Vol] 103.0 pg/mL Normal <=900.0 [facility] Comment on above: Performed By: #### B MATERIALS ANALYST, BMP ####[facility] Srssjbhhka18[address] [place], [place] [address]Dr. Garima Pulliam CBC AUTO DIFFon 03-22-2023 BASO # 0.0 103/ul Normal 0.0-0.1 [facility] Comment on above: Performed By: #### C BC ####[facility] Qefrlxeihe8[address] [place], [place] [address]Dr. Garima Heraclio Basophils/100 WBC (Bld) 0.3 % Normal 0.2-2.0 [facility] Comment on above: Performed By: #### C BC ####[facility] Aclzlqiruo644[address] [place], [place] [address]Dr. Garima Pulliam EO # 0.2 103/ul Normal 0.0-0.7 [facility] Comment on above: Performed By: #### C BC ####[facility] Hkjsgqotit98[address] [place], [place] [address]Dr. Garima Heraclio Eosinophils/100 WBC (Bld) 2.2 % Normal 0.9-7.0 [facility] Comment on above: Performed By: #### C BC ####[facility] Wtsipdoxfq966[address] [place], [place] [address]Dr. Garima Pulliam Erythrocyte distribution width (RBC) [Ratio] 13.2 % Normal 11.0-15.0 [facility] Comment on above: Performed By: #### C BC ####[facility] Yjnxaxoqts6785 [place] [address]Dr. Chapisrenu Pulliam Hematocrit (Bld) [Volume fraction] 43.4 % Normal 42.0-54.0 [facility] Comment on above: Performed By: #### C BC ####[facility] Dmrtmxevgf5952 [place] [address]Dr. Garima Pulliam Hemoglobin (Bld) [Mass/Vol] 14.3 g/dL Normal 14.0-18.0 [facility] Comment on above: Performed By: #### C BC ####[facility] Dhpwyqfxob112[address] [place], [place] [address]Dr. Garima Pulliam IG # 0.02 10e3/ul Normal 0.00-0.03 [facility] Comment on above: Performed By: #### C BC ####[facility] Hykwucibci350[address] [place], [place] [address]Dr. Garima Pulliam IG % 0.3 % Normal 0.0-0.5 [facility] Comment on above: Performed By: #### C BC ####[facility] Rtcalkskun[address] [place], [place] [address]Dr. Garima Pulliam LYMPH # 2.0 103/ul Normal 1.2-3.8 [facility] Comment on above: Performed By: #### C BC ####[facility] Rfgwpelewo712[address] [place], [place] [address]Dr. Garima Pulliam Lymphocytes/100 WBC (Bld) 24.8 % Normal 20.5-60.0 [facility] Comment on above: Performed By: #### C BC ####[facility] Qyjtswmtpt9380 [place] [address]Dr. Garima Pulliam MANUAL DIFF REQ NO Normal [facility] Comment on above: Performed By: #### C BC ####[facility] Ixphmiyhgz[address] [place], [place] [address]Dr. Garima Pulliam MCH (RBC) [Entitic mass] 30.0 pg Normal 25.9-34.0 [facility] Comment on above: Performed By: #### C BC ####[facility] Osurpvmemo255[address] [place], [place] [address]Dr. Garima Pulliam MCHC (RBC) [Mass/Vol] 32.9 g/dL Normal 29.9-35.2 [facility] Comment on above: Performed By: #### C BC ####[facility] Ihbyaboynp5610 [place] [address]Dr. Garima Heraclio MCV (RBC) [Entitic vol] 91.0 fL Normal 80.0-94.0 [facility] Comment on above: Performed By: #### C BC ####[facility] Rpcztamlbu9433 [place] [address]Dr. Garima Pulliam MONO # 0.8 103/ul Normal 0.3-0.8 [facility] Comment on above: Performed By: #### C BC ####[facility] Bjzzidrcxt624[address] [place], [place] [address]Dr. Garima Pulliam Monocytes/100 WBC (Bld) 9.7 % Normal 1.7-12.0 [facility] Comment on above: Performed By: #### C BC ####[facility] Ddmctyoywi50[address] [place], [place] [address]Dr. Garima Pulliam NEUT # 4.9 103/ul Normal 1.4-6.5 [facility] Comment on above: Performed By: #### C BC ####[facility] Rfkodkvtpx7[address] [place], [place] [address]Dr. Garima Pulliam Neutrophils/100 WBC (Bld) 62.7 % Normal 43.0-75.0 [facility] Comment on above: Performed By: #### C BC ####[facility] Zgovhiwzcf54[address] [place], [place] [address]Dr. Garima Pulliam Platelet mean volume (Bld) [Entitic vol] 8.8 fL Critically low 9.5-13.5 [facility] Comment on above: Performed By: #### C BC ####[facility] Hdybijazgo059[address] [place], [place] [address]Dr. Garima Pulliam PLT 198 103/ul Normal 150-450 [facility] Comment on above: Performed By: #### C BC ####[facility] Fwupyltmbp2364 [place] [address]Dr. Garima Pulliam RBC 4.77 106/ul Normal 4.70-6.10 [facility] Comment on above: Performed By: #### C BC ####[facility] Nwsheqvaxr1574 [place] [address]Dr. Garima Heraclio WBC 7.9 103/ul Normal 4.0-11.0 [facility] Comment on above: Performed By: #### C BC ####[facility] Stutqmotff8[address] [place] [address]Dr. Chapisrenu Pulliam D-DIMERon 03-22-2023 D-DIMER 0.85 mg/L FEU Critically high <=0.59 [facility] Comment on above: Performed By: #### D DIM ####[facility] Hmbnwtkzsm79[address] [place] [address]Dr. Garima Pulliam D-DIMER COMMENTS SEE BELOW Normal [facility] Comment on above: Result Comment: [...] generalized hospitalization. Performed By: #### D DIM ####[facility] Zkvrbrkqkt6117 [place] [address]Dr. Garima Pulliam PROF CHEM 8 (BAS METB)on Anion gap [Moles/Vol] 6.9 mmol/L Normal [facility] Comment on above: Performed By: #### B MATERIALS ANALYST, BMP ####[facility] Gziheohoss3076 [place] [address]Dr. Garima Pulliam Calcium [Mass/Vol] 8.9 mg/dL Normal 8.5-10.1 [facility] Comment on above: Performed By: #### B MATERIALS ANALYST, BMP ####[facility] Ivfizzjism4604 [place] [address]Dr. Garima Pulliam Chloride [Moles/Vol] 101 mmol/L Normal 98-107 [facility] Comment on above: Performed By: #### B MATERIALS ANALYST, BMP ####[facility] Lktqhetdgf092[address] [place], [place] [address]Dr. Garima Pulliam CO2 [Moles/Vol] 30.7 mmol/L Normal 21.0-32.0 [facility] Comment on above: Performed By: #### B MATERIALS ANALYST, BMP ####[facility] Fujzbvjkpa834[address] [place], [place] [address]Dr. Chapisrenu Heraclio Creatinine [Mass/Vol] 0.82 mg/dL Normal 0.70-1.30 [facility] Comment on above: Performed By: #### B MATERIALS ANALYST, BMP ####[facility] Wqmhyctsed318[address] [place], [place] [address]Dr. Garima Pulliam EGFR-AF [facility] LUCIAN >60 Normal >=60 [facility] Comment on above: Performed By: #### B MATERIALS ANALYST, BMP ####[facility] Nfakvzgzgu66[address] [place], [place] [address]Dr. Chapisrenu Heraclio EGFR-NON AF [facility] LUCI[facility] >60 Normal >=60 [facility] Comment on above: Performed By: #### B MATERIALS ANALYST, BMP ####[facility] Yyoqexixlj877[address] [place], [place] [address]Dr. Garima Pulliam Glucose [Mass/Vol] 339 mg/dL Critically high 74-106 [facility] Comment on above: Performed By: #### B MATERIALS ANALYST, BMP ####[facility] Gssuxeowds[address] [place], [place] [address]Dr. Garima Pulliam Potassium [Moles/Vol] 3.6 mmol/L Normal 3.5-5.1 [facility] Comment on above: Performed By: #### B MATERIALS ANALYST, BMP ####[facility] Akwsitkwjv9[address] [place], [place] [address]Dr. Garima Pulliam Sodium [Moles/Vol] 135 mmol/L Critically low 136-145 [facility] Comment on above: Performed By: #### B MATERIALS ANALYST, BMP ####[facility] Vafpnmaxje518[address] [place], [place] [address]Dr. Garima Pulliam Urea nitrogen [Mass/Vol] 11.0 mg/dL Normal 7.0-18.0 [facility] Comment on above: Performed By: #### B MATERIALS ANALYST, BMP ####[facility] Tsynkjdrbm435[address] [place], [place] [address]Dr. Garima Pulliam Urea nitrogen/Creatinine [Mass ratio] 13.4 mg/mg Normal [facility] Comment on above: Performed By: #### B MATERIALS ANALYST, BMP ####[facility] Fzwgeymkfl[address] [place], [place] [address]DrAdalberto Garima Heraclio US VERONICA DOP LEG BILon 023 US VERONICA DOP LEG BENOIT Normal [facility] BNPon 03-18-2023 Natriuretic peptide B (Bld) [Mass/Vol] 226.0 pg/mL Normal <=900.0 [facility] Comment on above: Performed By: #### B MATERIALS ANALYST, BMP ####[facility] Yemanxalyj377[address] [place], [place] [address]Dr. Garima Heraclio CBC AUTO DIFFon 03-18-2023 BASO # 0.0 103/ul Normal 0.0-0.1 [facility] Comment on above: Performed By: #### C BC ####[facility] Ehdldudium[address] [place], [place] [address]Dr. Garima Heraclio Basophils/100 WBC (Bld) 0.2 % Normal 0.2-2.0 [facility] Comment on above: Performed By: #### C BC ####[facility] Hpeotseoxo102[address] [place], [place] [address]DrAdalberto Garima Heraclio EO # 0.3 103/ul Normal 0.0-0.7 [facility] Comment on above: Performed By: #### C BC ####[facility] Splnbdoguu088[address] [place], [place] [address]Dr. Chapisrenu Pulliam Eosinophils/100 WBC (Bld) 2.5 % Normal 0.9-7.0 [facility] Comment on above: Performed By: #### C BC ####[facility] Nkfaauixqh047[address] [place], [place] [address]DrAdalberto Garima Heraclio Erythrocyte distribution width (RBC) [Ratio] 13.2 % Normal 11.0-15.0 [facility] Comment on above: Performed By: #### C BC ####[facility] Xeonjpbjqq4235 [place] [address]Dr. Garima Pulliam Hematocrit (Bld) [Volume fraction] 45.8 % Normal 42.0-54.0 [facility] Comment on above: Performed By: #### C BC ####[facility] Fpctaymnbr0245 [place] [address]Dr. Garima Heraclio Hemoglobin (Bld) [Mass/Vol] 15.3 g/dL Normal 14.0-18.0 [facility] Comment on above: Performed By: #### C BC ####[facility] Fuqxgaaeua9[address] [place], [place] [address]Dr. Garima Pulliam IG # 0.02 10e3/ul Normal 0.00-0.03 [facility] Comment on above: Performed By: #### C BC ####[facility] Ajwamrfpfh274[address] [place], [place] [address]Dr. Garima Pulliam IG % 0.2 % Normal 0.0-0.5 [facility] Comment on above: Performed By: #### C BC ####[facility] Eanqmembvq745[address] [place], [place] [address]Dr. Chapisrenu Pulliam LYMPH # 1.8 103/ul Normal 1.2-3.8 [facility] Comment on above: Performed By: #### C BC ####[facility] Udkxcadhcf[address] [place], [place] [address]Dr. Garima Pulliam Lymphocytes/100 WBC (Bld) 18.3 % Critically low 20.5-60.0 [facility] Comment on above: Performed By: #### C BC ####[facility] Puxsfzmhrc64[address] [place], [place] [address]Dr. Garima Pulliam MANUAL DIFF REQ NO Normal [facility] Comment on above: Performed By: #### C BC ####[facility] Qxkcntffne0292 [place] [address]Dr. Garima Pulliam MCH (RBC) [Entitic mass] 30.5 pg Normal 25.9-34.0 [facility] Comment on above: Performed By: #### C BC ####[facility] Ofbpcaybsp8611 [place] [id number]. Garima Pulliam MCHC (RBC) [Mass/Vol] 33.4 g/dL Normal 29.9-35.2 [facility] Comment on above: Performed By: #### C BC ####[facility] Chhhpqoejg7581 [place] [id number]. Garima Pulliam MCV (RBC) [Entitic vol] 91.2 fL Normal 80.0-94.0 [facility] Comment on above: Performed By: #### C BC ####[facility] Ptkygvfezy1972 [place] [address]Dr. Garima Pulliam MONO # 0.8 103/ul Normal 0.3-0.8 [facility] Comment on above: Performed By: #### C BC ####[facility] Gtamtqiypc2639 [place] [address]Dr. Garima Pulliam Monocytes/100 WBC (Bld) 7.6 % Normal 1.7-12.0 [facility] Comment on above: Performed By: #### C BC ####[facility] Ulhdjhlotx870[address] [place], [place] [address]Dr. Garima Pulliam NEUT # 7.0 103/ul Critically high 1.4-6.5 [facility] Comment on above: Performed By: #### C BC ####[facility] Fkaaxpvfkr[address] [place], [place] [address]Dr. Garima Pulliam Neutrophils/100 WBC (Bld) 71.2 % Normal 43.0-75.0 [facility] Comment on above: Performed By: #### C BC ####[facility] Abegmdpgtk[address] [place], [place] [address]Dr. Garima Pulliam Platelet mean volume (Bld) [Entitic vol] 8.9 fL Critically low 9.5-13.5 [facility] Comment on above: Performed By: #### C BC ####[facility] Ahmfzlidbs[address] [place], [place] [address]Dr. Garima Pulliam PLT 217 103/ul Normal 150-450 [facility] Comment on above: Performed By: #### C BC ####[facility] Liolzkohod1516 [place] [address]Dr. Garima Pulliam RBC 5.02 106/ul Normal 4.70-6.10 [facility] Comment on above: Performed By: #### C BC ####[facility] Cmjtpclsfo0136 [place] [address]Dr. Garima Pulliam WBC 9.8 103/ul Normal 4.0-11.0 [facility] Comment on above: Performed By: #### C BC ####[facility] Pewlzhlysw[address] [place], [place] [address]DrAdalberto Pulliam CRPon 03-18-2023 CRP 0.1 mg/dL Normal <=1.0 [facility] Comment on above: Performed By: #### C RP ####[facility] Eogimwlvye[address] [place], [place] [address]DrAdalberto Pulliam PROF CHEM 8 (BAS METB)on Anion gap [Moles/Vol] 10.4 mmol/L Normal [facility] Comment on above: Performed By: #### B MATERIALS ANALYST, BMP ####[facility] Cineebbawa[address] [place], [place] [address]Dr. Garima Pulliam Calcium [Mass/Vol] 8.8 mg/dL Normal 8.5-10.1 [facility] Comment on above: Performed By: #### B MATERIALS ANALYST, BMP ####[facility] Raqnstpnno4298 [place] [address]Dr. Garima Pulliam Chloride [Moles/Vol] 97 mmol/L Critically low 98-107 [facility] Comment on above: Performed By: #### B MATERIALS ANALYST, BMP ####[facility] Zbzpmxeche[address] [place], [place] [address]DrAdalberto Pulliam CO2 [Moles/Vol] 31.2 mmol/L Normal 21.0-32.0 [facility] Comment on above: Performed By: #### B MATERIALS ANALYST, BMP ####[facility] Otxgrnstuw[address] [place], [place] [address]Dr. Garima Pulliam Creatinine [Mass/Vol] 0.91 mg/dL Normal 0.70-1.30 [facility] Comment on above: Performed By: #### B MATERIALS ANALYST, BMP ####[facility] Itdbsvrsdg0660 [place] [address]Dr. Garima Heraclio EGFR-AF [facility] LUCIAN >60 Normal >=60 [facility] Comment on above: Performed By: #### B MATERIALS ANALYST, BMP ####[facility] Vgsnqkcmla2587 [place] [id number]. Garima Heraclio EGFR-NON AF [facility] LUCIAN >60 Normal >=60 [facility] Comment on above: Performed By: #### B MATERIALS ANALYST, BMP ####[facility] [address]ewtjddfsg[address] [place] [address]Dr. Garima Pulliam Glucose [Mass/Vol] 315 mg/dL Critically high 74-106 [facility] Comment on above: Performed By: #### B MATERIALS ANALYST, BMP ####[facility] Wyqgakyoy[address] [place], [place] [address]Dr. Garima Pulliam Potassium [Moles/Vol] 3.6 mmol/L Normal 3.5-5.1 [facility] Comment on above: Performed By: #### B MATERIALS ANALYST, BMP ####[facility] Wivskwamgd[address] [place], [place] [address]Dr. Garima Pulliam Sodium [Moles/Vol] 135 mmol/L Critically low 136-145 [facility] Comment on above: Performed By: #### B MATERIALS ANALYST, BMP ####[facility] Zchgdgmrpt[address] [place], [place] [address]Dr. Chapisrenu Heraclio Urea nitrogen [Mass/Vol] 7.0 mg/dL Normal 7.0-18.0 [facility] Comment on above: Performed By: #### B MATERIALS ANALYST, BMP ####[facility] Nsextzosxv[address] [place], [place] [address]Dr. Garima Pulliam Urea nitrogen/Creatinine [Mass ratio] 7.7 mg/mg Normal [facility] Comment on above: Performed By: #### B MATERIALS ANALYST, BMP ####[facility] Jyyankopdx[address] [place], [place] [address]Dr. Garima Pulliam SED RATE WESTERGRENon 2022 SED RATE 8 mm/hr Normal <=20 [facility] Comment on above: Performed By: #### S EDR ####[facility] Zafbnvfxpm[address] [place], [place] [address]Dr. Garima Pulliam BNPon 03-16-2023 Natriuretic peptide B (Bld) [Mass/Vol] 241.0 pg/mL Normal <=900.0 [facility] Comment on above: Performed By: #### B MATERIALS ANALYST, BMP, HSTROPN ####[facility] Rdcpjnbwiy336[address] [place], [place] [address]Dr. Garima Pulliam CBC AUTO DIFFon 03-16-2023 BASO # 0.0 103/ul Normal 0.0-0.1 [facility] Comment on above: Performed By: #### C BC ####[facility] Hutspdblzd[address] [place], [place] [address]Dr. Chapisrenu Pulliam Basophils/100 WBC (Bld) 0.2 % Normal 0.2-2.0 [facility] Comment on above: Performed By: #### C BC ####[facility] Bzrrswmksj[address] [place], [place] [address]Dr. Garima Pulliam EO # 0.2 103/ul Normal 0.0-0.7 [facility] Comment on above: Performed By: #### C BC ####[facility] Ihobvhausa[address] [place], [place] [address]Dr. Garima Pulliam Eosinophils/100 WBC (Bld) 2.7 % Normal 0.9-7.0 [facility] Comment on above: Performed By: #### C BC ####[facility] Nwjhwyehlv7[address] [place], [place] [address]Dr. Garima Pulliam Erythrocyte distribution width (RBC) [Ratio] 13.1 % Normal 11.0-15.0 [facility] Comment on above: Performed By: #### C BC ####[facility] Fjymljhibv[address] [place], [place] [address]Dr. Garima Pulliam Hematocrit (Bld) [Volume fraction] 41.8 % Critically low 42.0-54.0 [facility] Comment on above: Performed By: #### C BC ####[facility] [address] [place] [address]Dr. Garima Pulliam Hemoglobin (Bld) [Mass/Vol] 14.0 g/dL Normal 14.0-18.0 [facility] Comment on above: Performed By: #### C BC ####[facility] Egtxtqxotf6[address] [place] [address]Dr. Garima Pulliam IG # 0.03 10e3/ul Normal 0.00-0.03 [facility] Comment on above: Performed By: #### C BC ####[facility] Ksxedfftbl78[address] [place] [address]Dr. Garima Pulliam IG % 0.3 % Normal 0.0-0.5 [facility] Comment on above: Performed By: #### C BC ####[facility] Oovelymykp[address]356 [place] [address]Dr. Chapisrenu Pulliam LYMPH # 2.1 103/ul Normal 1.2-3.8 [facility] Comment on above: Performed By: #### C BC ####[facility] Qwfueahuls7846 [place] [address]Dr. Chapisrenu Pulliam Lymphocytes/100 WBC (Bld) 24.2 % Normal 20.5-60.0 [facility] Comment on above: Performed By: #### C BC ####[facility] [address]udtaitw26[address] [place] [address]Dr. Garima Pulliam MANUAL DIFF REQ NO Normal [facility] Comment on above: Performed By: #### C BC ####[facility] [address]vnami[address] [place] [id number]. Garima Pulliam MCH (RBC) [Entitic mass] 30.2 pg Normal 25.9-34.0 [facility] Comment on above: Performed By: #### C BC ####[facility] Hcriojdudy3364 [place] [id number]. Chapisrenu Pulliam MCHC (RBC) [Mass/Vol] 33.5 g/dL Normal 29.9-35.2 [facility] Comment on above: Performed By: #### C BC ####[facility] Wjcudlqxcz2533 [place] [id number]. Garima Pulliam MCV (RBC) [Entitic vol] 90.1 fL Normal 80.0-94.0 [facility] Comment on above: Performed By: #### C BC ####[facility] Nvmatwrqco8465 [place] [id number]. Garima Pulliam MONO # 0.6 103/ul Normal 0.3-0.8 [facility] Comment on above: Performed By: #### C BC ####[facility] Exlnqwmqvm1884 [place] [address]Dr. Garima Heraclio Monocytes/100 WBC (Bld) 7.4 % Normal 1.7-12.0 [facility] Comment on above: Performed By: #### C BC ####[facility] E[address] [place], [place] [id number]. Garima Pulliam NEUT # 5.6 103/ul Normal 1.4-6.5 [facility] Comment on above: Performed By: #### C BC ####[facility] C[address]wjuccu[address] [place], [place] [id number]. Garima Heraclio Neutrophils/100 WBC (Bld) 65.2 % Normal 43.0-75.0 [facility] Comment on above: Performed By: #### C BC ####[facility] K[address]st[address] [place], [place] [address]Dr. Garima Heraclio Platelet mean volume (Bld) [Entitic vol] 8.7 fL Critically low 9.5-13.5 [facility] Comment on above: Performed By: #### C BC ####[facility] Mglvbfoaro3858 [place] [id number]. Garima Heraclio PLT 195 103/ul Normal 150-450 [facility] Comment on above: Performed By: #### C BC ####[facility] Vnxgauncwq8813 [place] [id number]. Garima Pulliam RBC 4.64 106/ul Critically low 4.70-6.10 [facility] Comment on above: Performed By: #### C BC ####[facility] Kkhztkxmko2383 [place] [address]Dr. Garima Pulliam WBC 8.6 103/ul Normal 4.0-11.0 [facility] Comment on above: Performed By: #### C BC ####[facility] Cbhqdqgjbg8310 [place] [address]Dr. Garima Pulliam PROF CHEM 8 (BAS METB)on Anion gap [Moles/Vol] 6.7 mmol/L Normal [facility] Comment on above: Performed By: #### B MATERIALS ANALYST, BMP, HSTROPN ####[facility] Bksylydtjy[address] [place], [place] [address]Dr. Garima Pulliam Calcium [Mass/Vol] 8.8 mg/dL Normal 8.5-10.1 [facility] Comment on above: Performed By: #### B MATERIALS ANALYST, BMP, HSTROPN ####[facility] Uxjaetbegu[address] [place], [place] [address]Dr. Garima Pulliam Chloride [Moles/Vol] 106 mmol/L Normal 98-107 [facility] Comment on above: Performed By: #### B MATERIALS ANALYST, BMP, HSTROPN ####[facility] Tpdasxvefp[address] [place], [place] [address]Dr. Garima Pulliam CO2 [Moles/Vol] 31.4 mmol/L Normal 21.0-32.0 [facility] Comment on above: Performed By: #### B MATERIALS ANALYST, BMP, HSTROPN ####[facility] Nquqxesebt[address] [place], [place] [address]Dr. Garima Pulliam Creatinine [Mass/Vol] 0.75 mg/dL Normal 0.70-1.30 [facility] Comment on above: Performed By: #### B MATERIALS ANALYST, BMP, HSTROPN ####[facility] Z[address]hfjptnh[address] [place], [place] [address]Dr. Garima Pulliam EGFR-AF ST LUCIAN >60 Normal >=60 [facility] Comment on above: Performed By: #### B MATERIALS ANALYST, BMP, HSTROPN ####[facility] Bwpivikete3[address] [place] [address]Dr. Garima Pulliam EGFR-NON AF [facility] LUCIAN >60 Normal >=60 [facility] Comment on above: Performed By: #### B MATERIALS ANALYST, BMP, HSTROPN ####[facility] Uxijjcxkxb2986 [place] [address]Dr. Garima Pulliam Glucose [Mass/Vol] 161 mg/dL Critically high 74-106 [facility] Comment on above: Performed By: #### B MATERIALS ANALYST, BMP, HSTROPN ####[facility] Lsgdzhowkr3359 [place] [address]Dr. Garima Pulliam Potassium [Moles/Vol] 4.1 mmol/L Normal 3.5-5.1 [facility] Comment on above: Performed By: #### B MATERIALS ANALYST, BMP, HSTROPN ####[facility] Xwwgnzsdwz9871 [place] [address]Dr. Garima Pulliam Sodium [Moles/Vol] 140 mmol/L Normal 136-145 [facility] Comment on above: Performed By: #### B MATERIALS ANALYST, BMP, HSTROPN ####[facility] Gnqqqhwuzh2067 [place] [address]Dr. Garima Pulliam Urea nitrogen [Mass/Vol] 7.0 mg/dL Normal 7.0-18.0 [facility] Comment on above: Performed By: #### B MATERIALS ANALYST, BMP, HSTROPN ####[facility] Xxsgzuqzmp6538 [place] [address]Dr. Garima Pulliam Urea nitrogen/Creatinine [Mass ratio] 9.3 mg/mg Normal [facility] Comment on above: Performed By: #### B MATERIALS ANALYST, BMP, HSTROPN ####[facility] Sffcypltur[address] [place], [place] [address]Dr. Garima Pulliam TROPONIN, HIGH SENSITIVITYon 03-16-2023 HSTROP 9.7 pg/mL Normal 4.0-76.1 [facility] Comment on above: Result Comment: CUT- OFF POINTS HAVE BEEN ESTABLISHED BASED ON THE FOURTH UNIVERSAL DEFINITIONS OF MYOCARDIALINFARCTION. THE UPPER REFERENCE LIMIT (URL) OF TROPONIN, DEFINED THE 99TH PERCENTILE OFcTnI DISTRIBUTION IN A REFERENCE POPULATION, HAS BEEN CONFIRMED THE DECISION THRESHOLDFOR SC DIAGNOSIS. Performed By: #### B MATERIALS ANALYST, BMP, HSTROPN ####[facility] Tiqbmfylbd[address] [place] [address]Dr. Garima Pulliam XR CHEST 1 Von 03-16-2023 XR CHEST 1 V Normal [facility] BNPon 03-06-2023 Natriuretic peptide B (Bld) [Mass/Vol] 111.0 pg/mL Normal <=900.0 [facility] Comment on above: Performed By: #### C MP, BNP, CK ####[facility] Lmsqpoygwo55[address] [place] [address]Dr. Chapisrenu Pulliam CBC AUTO DIFFon 03-06-2023 BASO # 0.0 103/ul Normal 0.0-0.1 [facility] Comment on above: Performed By: #### C BC ####[facility] Mvrpdcxrav[address] [place], [place] [address]Dr. Garima Pulliam Basophils/100 WBC (Bld) 0.2 % Normal 0.2-2.0 [facility] Comment on above: Performed By: #### C BC ####[facility] Fcgcfxtcwf[address] [place], [place] [address]Dr. Garima Heraclio EO # 0.3 103/ul Normal 0.0-0.7 [facility] Comment on above: Performed By: #### C BC ####[facility] Aofjjdmhub[address] [place], [place] [address]Dr. Garima Pulliam Eosinophils/100 WBC (Bld) 3.5 % Normal 0.9-7.0 [facility] Comment on above: Performed By: #### C BC ####[facility] Iycsnxtzpb[address] [place], [place] [address]Dr. Chapisrenu Pulliam Erythrocyte distribution width (RBC) [Ratio] 13.3 % Normal 11.0-15.0 [facility] Comment on above: Performed By: #### C BC ####[facility] Znocaruzlo[address] [place], [place] [address]Dr. Garima Pulliam Hematocrit (Bld) [Volume fraction] 43.7 % Normal 42.0-54.0 [facility] Comment on above: Performed By: #### C BC ####[facility] Xszhoiaumv9436 [place] [address]Dr. Garima Pulliam Hemoglobin (Bld) [Mass/Vol] 14.7 g/dL Normal 14.0-18.0 [facility] Comment on above: Performed By: #### C BC ####[facility] Qkchivming6369 [place] [address]Dr. Garima Pulliam IG # 0.03 10e3/ul Normal 0.00-0.03 [facility] Comment on above: Performed By: #### C BC ####[facility] Yljgzlpmuy5253 [place] [address]Dr. Garima Pulliam IG % 0.4 % Normal 0.0-0.5 [facility] Comment on above: Performed By: #### C BC ####[facility] Dlufpuupdc[address] [place], [place] [address]Dr. Garima Heraclio LYMPH # 2.0 103/ul Normal 1.2-3.8 [facility] Comment on above: Performed By: #### C BC ####[facility] Gniesytqte[address] [place], [place] [address]Dr. Chapisrenu Pulliam Lymphocytes/100 WBC (Bld) 23.7 % Normal 20.5-60.0 [facility] Comment on above: Performed By: #### C BC ####[facility] Vdrjizrbjm4351 [place] [address]Dr. Chapisrenu Pulliam MANUAL DIFF REQ NO Normal [facility] Comment on above: Performed By: #### C BC ####[facility] Gmmkhcescj6535 [place] [address]Dr. Garima Pulliam MCH (RBC) [Entitic mass] 30.1 pg Normal 25.9-34.0 [facility] Comment on above: Performed By: #### C BC ####[facility] Zoiscnuoza2326 [place] [address]Dr. Garima Pulliam MCHC (RBC) [Mass/Vol] 33.6 g/dL Normal 29.9-35.2 [facility] Comment on above: Performed By: #### C BC ####[facility] Chcarknywp4971 [place] [id number]. Garima Pulliam MCV (RBC) [Entitic vol] 89.4 fL Normal 80.0-94.0 [facility] Comment on above: Performed By: #### C BC ####[facility] Llrjjygwdu8126 [place] [address]Dr. Garima Pulliam MONO # 0.8 103/ul Normal 0.3-0.8 [facility] Comment on above: Performed By: #### C BC ####[facility] Hqalavikjn8124 [place] [address]Dr. Chapisrenu Pulliam Monocytes/100 WBC (Bld) 9.0 % Normal 1.7-12.0 [facility] Comment on above: Performed By: #### C BC ####[facility] Zlygsmshwy[address] [place], [place] [address]Dr. Garima Pulliam NEUT # 5.4 103/ul Normal 1.4-6.5 [facility] Comment on above: Performed By: #### C BC ####[facility] Nihngfghmh[address] [place], [place] [address]Dr. Chapisrenu Pulliam Neutrophils/100 WBC (Bld) 63.2 % Normal 43.0-75.0 [facility] Comment on above: Performed By: #### C BC ####[facility] Mvmghjatuq[address] [place], [place] [address]Dr. Garima Pulliam Platelet mean volume (Bld) [Entitic vol] 9.0 fL Critically low 9.5-13.5 [facility] Comment on above: Performed By: #### C BC ####[facility] [address] [place], [place] [address]Dr. Garima Pulliam PLT 218 103/ul Normal 150-450 [facility] Comment on above: Performed By: #### C BC ####[facility] Kiieniqtyk[address] [place], [place] [address]Dr. Garima Pulliam RBC 4.89 106/ul Normal 4.70-6.10 [facility] Comment on above: Performed By: #### C BC ####[facility] Semjhgfssx20[address] [place] [address]Dr. Garima Pulliam WBC 8.5 103/ul Normal 4.0-11.0 [facility] Comment on above: Performed By: #### C BC ####[facility] Bsvrlwgxyd6638 [place] [address]Dr. Garima Pulliam CPKon 03-06-2023 CK [Catalytic activity/Vol] 191 U/L Normal 39-308 [facility] Comment on above: Performed By: #### C MP, BNP, CK ####[facility] Eoddrelylc78[address] [place] [address]Dr. Garima Pulliam PROF 14(COMP METB)on 023 Albumin [Mass/Vol] 3.6 g/dL Normal 3.4-5.0 [facility] Comment on above: Performed By: #### C MP, BNP, CK ####[facility] Pvvzyuehhf0960 [place] [address]Dr. Garima Pulliam Albumin/Globulin [Mass ratio] 1.2 {ratio} Normal [facility] Comment on above: Performed By: #### C MP, BNP, CK ####[facility] Lxuudyudde1033 [place] [address]Dr. Garima Pulliam ALP [Catalytic activity/Vol] 91 U/L Normal 46-116 [facility] Comment on above: Performed By: #### C MP, BNP, CK ####[facility] Yqtbzopbvh0496 [place] [address]Dr. Garima Pulliam ALT [Catalytic activity/Vol] 33 U/L Normal 16-63 [facility] Comment on above: Performed By: #### C MP, BNP, CK ####[facility] Ngayttmqvc3504 [place] [address]Dr. Garima Pulliam Anion gap [Moles/Vol] 10.3 mmol/L Normal [facility] Comment on above: Performed By: #### C MP, BNP, CK ####[facility] Svlwakoqhx8756 [place] [address]Dr. Garima Pulliam AST [Catalytic activity/Vol] 17 U/L Normal 15-37 [facility] Comment on above: Performed By: #### C MP, BNP, CK ####[facility] Mxxsakmatj3012 [place] [address]Dr. Garima Pulliam Bilirubin [Mass/Vol] 0.4 mg/dL Normal 0.2-1.0 [facility] Comment on above: Performed By: #### C MP, BNP, CK ####[facility] Zgdduqqklg6827 [place] [address]Dr. Garima Pulliam Calcium [Mass/Vol] 9.1 mg/dL Normal 8.5-10.1 [facility] Comment on above: Performed By: #### C MP, BNP, CK ####[facility] Brfpmacymb2797 [place] [address]Dr. Garima Pulliam Chloride [Moles/Vol] 102 mmol/L Normal 98-107 [facility] Comment on above: Performed By: #### C MP, BNP, CK ####[facility] Irfoycivpf023[address] [place] [address]Dr. Garima Pulliam CO2 [Moles/Vol] 29.7 mmol/L Normal 21.0-32.0 [facility] Comment on above: Performed By: #### C MP, BNP, CK ####[facility] Fifcjqhmwi2481 [place] [address]Dr. Garima Pulliam Creatinine [Mass/Vol] 0.79 mg/dL Normal 0.70-1.30 [facility] Comment on above: Performed By: #### C MP, BNP, CK ####[facility] Dvijtwkoke5606 [place] [address]Dr. Garima Pulliam EGFR-AF [facility] LUCIAN >60 Normal >=60 [facility] Comment on above: Performed By: #### C MP, BNP, CK ####[facility] Hpbiwxawjo2995 [place] [address]Dr. Garima Pulliam EGFR-NON AF [facility] LUCI[facility] >60 Normal >=60 [facility] Comment on above: Performed By: #### C MP, BNP, CK ####[facility] Maqzrafmkc8148 [place] [address]Dr. Garima Pulliam Globulin (S) [Mass/Vol] 3.0 g/dL Normal [facility] Comment on above: Performed By: #### C MP, BNP, CK ####[facility] Gehrdiqvte7108 [place] [address]Dr. Garima Pulliam Glucose [Mass/Vol] 202 mg/dL Critically high 74-106 [facility] Comment on above: Performed By: #### C MP, BNP, CK ####[facility] Ygkjvtkelj6464 [place] [address]Dr. Garima Heraclio Potassium [Moles/Vol] 4.0 mmol/L Normal 3.5-5.1 [facility] Comment on above: Performed By: #### C MP, BNP, CK ####[facility] Qovjitmyqw[address] [place], [place] [address]Dr. Chapisrenu Pulliam Protein [Mass/Vol] 6.6 g/dL Normal 6.4-8.2 [facility] Comment on above: Performed By: #### C MP, BNP, CK ####[facility] [address]tx[address]cyapar[address] [place], [place] [address]Dr. Garima Heraclio Sodium [Moles/Vol] 138 mmol/L Normal 136-145 [facility] Comment on above: Performed By: #### C MP, BNP, CK ####[facility] [address]qhhvybkrw[address] [place], [place] [address]Dr. Garima Heraclio Urea nitrogen [Mass/Vol] 10.0 mg/dL Normal 7.0-18.0 [facility] Comment on above: Performed By: #### C MP, BNP, CK ####[facility] Haallcgtmt9262 [place] [address]Dr. Garima Pulliam Urea nitrogen/Creatinine [Mass ratio] 12.7 mg/mg Normal [facility] Comment on above: Performed By: #### C MP, BNP, CK ####[facility] Xcedhjyjjj7903 [place] [address]Dr. Garima Pulliam US VERONICA DOP LEG BILon 023 US VERONICA DOP LEG BENOIT Normal [facility] CBC AUTO DIFFon 01-13-2023 BASO # 0.0 103/ul Normal 0.0-0.1 [facility] Comment on above: Performed By: #### C BC ####[facility] Tbpaisvupy9731 [place] [address]Dr. Garima Pulliam Basophils/100 WBC (Bld) 0.0 % Critically low 0.2-2.0 [facility] Comment on above: Performed By: #### C BC ####[facility] Uuipszidow1478 [place] [address]Dr. Garima Pulliam EO # 0.0 103/ul Normal 0.0-0.7 [facility] Comment on above: Performed By: #### C BC ####[facility] Ztjylhlmqb4968 [place] [address]Dr. Garima Pulliam Eosinophils/100 WBC (Bld) 0.0 % Critically low 0.9-7.0 [facility] Comment on above: Performed By: #### C BC ####[facility] Ivbsarphnk9233 [place] [address]Dr. Garima Pulliam Erythrocyte distribution width (RBC) [Ratio] 13.2 % Normal 11.0-15.0 [facility] Comment on above: Performed By: #### C BC ####[facility] Qsnjmmcruq6530 [place] [address]Dr. Garima Pulliam Hematocrit (Bld) [Volume fraction] 46.7 % Normal 42.0-54.0 [facility] Comment on above: Performed By: #### C BC ####[facility] Eixrxhqfgm0854 [place] [address]Dr. Garima Pulliam Hemoglobin (Bld) [Mass/Vol] 15.6 g/dL Normal 14.0-18.0 [facility] Comment on above: Performed By: #### C BC ####[facility] Cpexrvucfw6651 [place] [address]Dr. Chapisrenu Heraclio IG # 0.01 10e3/ul Normal 0.00-0.03 [facility] Comment on above: Performed By: #### C BC ####[facility] Vqopzbwoci9724 [place] [id number]. Garima Pulliam IG % 0.2 % Normal 0.0-0.5 [facility] Comment on above: Performed By: #### C BC ####[facility] Ietczisovc2096 [place] [address]Dr. Garima Pulliam LYMPH # 0.8 103/ul Critically low 1.2-3.8 [facility] Comment on above: Performed By: #### C BC ####[facility] Tjabxagydo1419 [place] [id number]. Garima Pulliam Lymphocytes/100 WBC (Bld) 12.7 % Critically low 20.5-60.0 [facility] Comment on above: Performed By: #### C BC ####[facility] Pjxbnpyvwl8011 [place] [id number]. Garima Pulliam MANUAL DIFF REQ NO Normal [facility] Comment on above: Performed By: #### C BC ####[facility] Zvzlkmmucc3918 [place] [id number]. Garima Pulliam MCH (RBC) [Entitic mass] 30.2 pg Normal 25.9-34.0 [facility] Comment on above: Performed By: #### C BC ####[facility] Cgdarqcfvv8302 [place] [address]Dr. Garima Pulliam MCHC (RBC) [Mass/Vol] 33.4 g/dL Normal 29.9-35.2 [facility] Comment on above: Performed By: #### C BC ####[facility] Bqzmxpnjdh0396 [place] [address]Dr. Garima Pulliam MCV (RBC) [Entitic vol] 90.3 fL Normal 80.0-94.0 [facility] Comment on above: Performed By: #### C BC ####[facility] Zcwiviaayy5494 [place] [address]Dr. Garima Pulliam MONO # 0.1 103/ul Critically low 0.3-0.8 [facility] Comment on above: Performed By: #### C BC ####[facility] Ehxrqvxwqo5132 [place] [address]Dr. Garima Pulliam Monocytes/100 WBC (Bld) 0.9 % Critically low 1.7-12.0 [facility] Comment on above: Performed By: #### C BC ####[facility] Hraxhwnnqq5923 [place] [id number]. Garima Pulliam NEUT # 5.6 103/ul Normal 1.4-6.5 [facility] Comment on above: Performed By: #### C BC ####[facility] Uckttrihrx8175 [place] [id number]. Garima Pulliam Neutrophils/100 WBC (Bld) 86.2 % Critically high 43.0-75.0 [facility] Comment on above: Performed By: #### C BC ####[facility] Fkbyqivygp9978 [place] [address]Dr. Garima Pulliam Platelet mean volume (Bld) [Entitic vol] 9.1 fL Critically low 9.5-13.5 [facility] [facility] Comment on above: Performed By: #### C BC ####[facility] [address]ks[address] [place] [id number]. Garima Pulliam PLT 169 103/ul Normal 150-450 [facility] Comment on above: Performed By: #### C BC ####[facility] Utbutdljzt[address] [place] [id number]. Garima Pulliam RBC 5.17 106/ul Normal 4.70-6.10 [facility] Comment on above: Performed By: #### C BC ####[facility] Mkmiduilnu[address] [place], [place] [id number]. Garima Pulliam WBC 6.5 103/ul Normal 4.0-11.0 [facility] Comment on above: Performed By: #### C BC ####[facility] R[address]mifuker[address] [place] [address]Dr. Garima Pulliam D-DIMERon 01-13-2023 D-DIMER 0.41 mg/L FEU Normal <=0.59 [facility] Comment on above: Performed By: #### D DIM ####[facility] Cmqeuomroy[address] [place] [address]Dr. Garima Pulliam D-DIMER COMMENTS SEE BELOW Normal [facility] Comment on above: Result Comment: [...] generalized hospitalization. Performed By: #### D DIM ####[facility] Jiyrqdacly[address] [place], [place] [address]Dr. Garima Pulliam PROF 14(COMP METB)on 023 Albumin [Mass/Vol] 3.4 g/dL Normal 3.4-5.0 [facility] Comment on above: Performed By: #### C MP ####[facility] Dlatraigct[address] [place], [place] [address]Dr. Garima Pulliam Albumin/Globulin [Mass ratio] 1.3 {ratio} Normal [facility] Comment on above: Performed By: #### C MP ####[facility] Qigsplzqex[address] [place], [place] [address]Dr. Garima Pulliam ALP [Catalytic activity/Vol] 83 U/L Normal 46-116 [facility] Comment on above: Performed By: #### C MP ####[facility] Gxonywmkkt[address] [place] [address]Dr. Garima Pulliam ALT [Catalytic activity/Vol] 25 U/L Normal 16-63 [facility] Comment on above: Performed By: #### C MP ####[facility] Wjwximpgon[address] [place] [address]Dr. Garima Pulliam Anion gap [Moles/Vol] 14.5 mmol/L Normal [facility] Comment on above: Performed By: #### C MP ####[facility] Wsuujdjylw[address] [place], [place] [address]Dr. Garima Pulliam AST [Catalytic activity/Vol] 19 U/L Normal 15-37 [facility] Comment on above: Performed By: #### C MP ####[facility] Fixktpxgfw9[address] [place], [place] [address]Dr. Garima Pulliam Bilirubin [Mass/Vol] 0.4 mg/dL Normal 0.2-1.0 [facility] Comment on above: Performed By: #### C MP ####[facility] Zbaruegecj[address] [place], [place] [address]Dr. Garima Pulliam Calcium [Mass/Vol] 8.7 mg/dL Normal 8.5-10.1 [facility] Comment on above: Performed By: #### C MP ####[facility] Dqyquxrlef[address] [place], [place] [address]Dr. Garima Pulliam Chloride [Moles/Vol] 104 mmol/L Normal 98-107 [facility] Comment on above: Performed By: #### C MP ####[facility] Glcqmlexmc51[address] [place], [place] [address]Dr. Garima Pulliam CO2 [Moles/Vol] 24.5 mmol/L Normal 21.0-32.0 [facility] Comment on above: Performed By: #### C MP ####[facility] Qaxdeaaphg440[address] [place], [place] [address]Dr. Garima Pulliam Creatinine [Mass/Vol] 0.70 mg/dL Normal 0.70-1.30 [facility] Comment on above: Performed By: #### C MP ####[facility] Kmdmtjqvcy320[address] [place], [place] [address]Dr. Garima Heraclio EGFR-AF [facility]CI[facility] >60 Normal >=60 [facility] Comment on above: Performed By: #### C MP ####[facility] Zkheojsxvh96[address] [place], [place] [address]Dr. Chapisrenu Heraclio EGFR-NON AF [facility]CI[facility] >60 Normal >=60 [facility] Comment on above: Performed By: #### C MP ####[facility] Viyqhytfij[address] [place], [place] [address]Dr. Garima Heraclio Globulin (S) [Mass/Vol] 2.6 g/dL Normal [facility] Comment on above: Performed By: #### C MP ####[facility] Bsjypznqws46[address] [place] [address]Dr. Garima Pulliam Glucose [Mass/Vol] 196 mg/dL Critically high 74-106 [facility] Comment on above: Performed By: #### C MP ####[facility] Hrjyciyqig25[address] [place] [address]Dr. Garima Heraclio Potassium [Moles/Vol] 4.0 mmol/L Normal 3.5-5.1 [facility] Comment on above: Performed By: #### C MP ####[facility] Plnkwpgqkh019[address] [place], [place] [address]Dr. Garima Heraclio Protein [Mass/Vol] 6.0 g/dL Critically low 6.4-8.2 [facility] Comment on above: Performed By: #### C MP ####[facility] Yqldatjqjs937[address] [place], [place] [address]Dr. Garima Heraclio Sodium [Moles/Vol] 139 mmol/L Normal 136-145 [facility] Comment on above: Performed By: #### C MP ####[facility] Cruhtedpyt423[address] [place], [place] [address]Dr. Garima Heraclio Urea nitrogen [Mass/Vol] 7.0 mg/dL Normal 7.0-18.0 [facility] Comment on above: Performed By: #### C MP ####[facility] Xkrhmxzrfj104[address] [place], [place] [address]Dr. Garima Heraclio Urea nitrogen/Creatinine [Mass ratio] 10.0 mg/mg Normal [facility] Comment on above: Performed By: #### C MP ####[facility] Xgtmtlfumu112[address] [place], [place] [address]Dr. Garima Pulliam BNPon 01-12-2023 Natriuretic peptide B (Bld) [Mass/Vol] 141.0 pg/mL Normal <=900.0 [facility] Comment on above: Performed By: #### C MP, BNP, HSTROPN ####[facility] Iegtxjjlsy683[address] [place], [place] [address]Dr. Garima Pulliam CBC AUTO DIFFon 01-12-2023 BASO # 0.0 103/ul Normal 0.0-0.1 [facility] Comment on above: Performed By: #### C BC ####[facility] Douodvrylq6[address] [place], [place] [address]Dr. Garima Heraclio Basophils/100 WBC (Bld) 0.2 % Normal 0.2-2.0 [facility] Comment on above: Performed By: #### C BC ####[facility] Ymkjaqopku306[address] [place], [place] [address]Dr. Garima Pulliam EO # 0.2 103/ul Normal 0.0-0.7 [facility] Comment on above: Performed By: #### C BC ####[facility] Pxdumgbhsd[address] [place], [place] [address]Dr. Garima Pulliam Eosinophils/100 WBC (Bld) 2.7 % Normal 0.9-7.0 [facility] Comment on above: Performed By: #### C BC ####[facility] Sxuoimehsf484[address] [place], [place] [address]Dr. Chapisrenu Pulliam Erythrocyte distribution width (RBC) [Ratio] 13.3 % Normal 11.0-15.0 [facility] Comment on above: Performed By: #### C BC ####[facility] Gbdkzvtnsp115[address] [place], [place] [address]Dr. Garima Pulliam Hematocrit (Bld) [Volume fraction] 42.3 % Normal 42.0-54.0 [facility] Comment on above: Performed By: #### C BC ####[facility] Iebognquse[address] [place], [place] [address]Dr. Garima Pulliam Hemoglobin (Bld) [Mass/Vol] 14.3 g/dL Normal 14.0-18.0 [facility] Comment on above: Performed By: #### C BC ####[facility] Jmhknpvuib074[address] [place], [place] [address]Dr. Garima Pulliam IG # 0.02 10e3/ul Normal 0.00-0.03 [facility] Comment on above: Performed By: #### C BC ####[facility] [address] [place] [id number]. Garima Pulliam IG % 0.2 % Normal 0.0-0.5 [facility] Comment on above: Performed By: #### C BC ####[facility] Ttevygciip[address] [place] [address]Dr. Garima Pulliam LYMPH # 2.6 103/ul Normal 1.2-3.8 [facility] Comment on above: Performed By: #### C BC ####[facility] Xrygimpjei23[address] [place] [address]Dr. Garima Pulliam Lymphocytes/100 WBC (Bld) 29.6 % Normal 20.5-60.0 [facility] Comment on above: Performed By: #### C BC ####[facility] Newqmfowmf8519[address] [place], [place] [address]Dr. Garima Pulliam MANUAL DIFF REQ NO Normal [facility] Comment on above: Performed By: #### C BC ####[facility] Mvojfcnbec[address] [place] [address]Dr. Garima Heraclio MCH (RBC) [Entitic mass] 30.2 pg Normal 25.9-34.0 [facility] Comment on above: Performed By: #### C BC ####[facility] Dhgqbovmhi[address] [place], [place] [address]Dr. Garima Heraclio MCHC (RBC) [Mass/Vol] 33.8 g/dL Normal 29.9-35.2 [facility] Comment on above: Performed By: #### C BC ####[facility] Yfqmkrooom4[address] [place] [address]Dr. Garima Pulliam MCV (RBC) [Entitic vol] 89.2 fL Normal 80.0-94.0 [facility] Comment on above: Performed By: #### C BC ####[facility] Ipyxkdllnv[address] [place], [place] [address]Dr. Garima Pulliam MONO # 0.7 103/ul Normal 0.3-0.8 [facility] Comment on above: Performed By: #### C BC ####[facility] Mbnmegiyif255[address] [place], [place] [address]Dr. Garima Pulliam Monocytes/100 WBC (Bld) 8.3 % Normal 1.7-12.0 [facility] Comment on above: Performed By: #### C BC ####[facility] Sciuowjiha[address] [place] [address]Dr. Garima Pulliam NEUT # 5.1 103/ul Normal 1.4-6.5 [facility] Comment on above: Performed By: #### C BC ####[facility] Jygzgenpfm[address] [place] [address]Dr. Garima Pulliam Neutrophils/100 WBC (Bld) 59.0 % Normal 43.0-75.0 [facility] Comment on above: Performed By: #### C BC ####[facility] Grqmfmwctf8204 [place] [address]Dr. Garima Pulliam Platelet mean volume (Bld) [Entitic vol] 8.7 fL Critically low 9.5-13.5 [facility] Comment on above: Performed By: #### C BC ####[facility] Zxfafdufid20[address] [place] [address]Dr. Garima Pulliam PLT 182 103/ul Normal 150-450 [facility] Comment on above: Performed By: #### C BC ####[facility] Petanmkdsj1252 [place] [address]Dr. Garima Pulliam RBC 4.74 106/ul Normal 4.70-6.10 [facility] Comment on above: Performed By: #### C BC ####[facility] Utyvsygqut05[address] [place], [place] [address]Dr. Garima Pulliam WBC 8.7 103/ul Normal 4.0-11.0 [facility] Comment on above: Performed By: #### C BC ####[facility] Mpikfasfws[address] [place], [place] [address]Dr. Garima Pulliam [facility]25 SARS-CoV-2 (COVID-19) RNA MARIE+probe Ql (Unsp spec) Not detected Normal NOT DETECTED [facility] Comment on above: Result Comment: When [...] for this test is supported by the [employer] of [employer] and Human Service's declaration that [...] be used). Performed By: #### C VDTBH ####[facility] Eeugmmbltj[address] [place] [address]Dr. Garima Pulliam PROF 14(COMP METB)on 023 Albumin [Mass/Vol] 3.6 g/dL Normal 3.4-5.0 [facility] Comment on above: Performed By: #### C MP, BNP, HSTROPN ####[facility] Ephzbcijef8[address] [place], [place] [address]Dr. Garima Pulliam Albumin/Globulin [Mass ratio] 1.5 {ratio} Normal [facility] Comment on above: Performed By: #### C MP, BNP, HSTROPN ####[facility] Jhhbuacdyv[address]25[address] [place], [place] [address]Dr. Garima Pulliam ALP [Catalytic activity/Vol] 79 U/L Normal 46-116 [facility] Comment on above: Performed By: #### C MP, BNP, HSTROPN ####[facility] Fzjcygiaro[address] [place], [place] [address]Dr. Garima Pulliam ALT [Catalytic activity/Vol] 27 U/L Normal 16-63 [facility] Comment on above: Performed By: #### C MP, BNP, HSTROPN ####[facility] Nwhmhokilx7329 [place] [address]DrAdalberto Pulliam Anion gap [Moles/Vol] 11.7 mmol/L Normal [facility] Comment on above: Performed By: #### C MP, BNP, HSTROPN ####[facility] Jinwyxdixx7[address] [place] [address]Dr. Garmia Pulliam AST [Catalytic activity/Vol] 21 U/L Normal 15-37 [facility] Comment on above: Performed By: #### C MP, BNP, HSTROPN ####[facility] Ojozzpmkqs4099 [place] [address]Dr. Garima Pulliam Bilirubin [Mass/Vol] 0.3 mg/dL Normal 0.2-1.0 [facility] Comment on above: Performed By: #### C MP, BNP, HSTROPN ####[facility] Rccwsrzlge08[address] [place], [place] [address]Dr. Garima Pulliam Calcium [Mass/Vol] 8.9 mg/dL Normal 8.5-10.1 [facility] Comment on above: Performed By: #### C MP, BNP, HSTROPN ####[facility] Glbeyqyhif377[address] [place], [place] [address]Dr. Garima Pulliam Chloride [Moles/Vol] 107 mmol/L Normal 98-107 [facility] Comment on above: Performed By: #### C MP, BNP, HSTROPN ####[facility] Lfshvspqyf364[address] [place] [address]Dr. Garima Pulliam CO2 [Moles/Vol] 26.0 mmol/L Normal 21.0-32.0 [facility] Comment on above: Performed By: #### C MP, BNP, HSTROPN ####[facility] Mfufzcbkhf[address] [place], [place] [address]Dr. Garima Pulliam Creatinine [Mass/Vol] 0.65 mg/dL Critically low 0.70-1.30 [facility] Comment on above: Performed By: #### C MP, BNP, HSTROPN ####[facility] Dgjrihmkev[address] [place] [address]Dr. Garima Pulliam EGFR-AF [facility]CI[facility] >60 Normal >=60 [facility] Comment on above: Performed By: #### C MP, BNP, HSTROPN ####[facility] Gslfviifjg97[address] [place] [address]Dr. Garima Pulliam EGFR-NON AF [facility] >60 Normal >=60 [facility] Comment on above: Performed By: #### C MP, BNP, HSTROPN ####[facility] Soemxlietb037[address] [place] [address]Dr. Garima Pulliam Globulin (S) [Mass/Vol] 2.4 g/dL Normal [facility] Comment on above: Performed By: #### C MP, BNP, HSTROPN ####[facility] Gmbhdolfzi47[address] [place], [place] [address]Dr. Garima Pulliam Glucose [Mass/Vol] 85 mg/dL Normal 74-106 [facility] Comment on above: Performed By: #### C MP, BNP, HSTROPN ####[facility] Luoxikwkcz[address] [place], [place] [address]Dr. Garima Pulliam Potassium [Moles/Vol] 3.7 mmol/L Normal 3.5-5.1 [facility] Comment on above: Performed By: #### C MP, BNP, HSTROPN ####[facility] Xfumwpdgki[address] [place], [place] [address]Dr. Garima Pulliam Protein [Mass/Vol] 6.0 g/dL Critically low 6.4-8.2 [facility] Comment on above: Performed By: #### C MP, BNP, HSTROPN ####[facility] Szooxgrnzp34280[address] [place], [place] [address]Dr. Garima Pulliam Sodium [Moles/Vol] 141 mmol/L Normal 136-145 [facility] Comment on above: Performed By: #### C MP, BNP, HSTROPN ####[facility] Egqozuqtkl284[address] [place], [place] [address]Dr. Garima Pulliam Urea nitrogen [Mass/Vol] 5.0 mg/dL Critically low 7.0-18.0 [facility] Comment on above: Performed By: #### C MP, BNP, HSTROPN ####[facility] Oknqvtzghs[address] [place] [address]Dr. Garima Pulliam Urea nitrogen/Creatinine [Mass ratio] 7.7 mg/mg Normal [facility] Comment on above: Performed By: #### C MP, BNP, HSTROPN ####[facility] Jcetnjkxbx13[address] [place] [address]Dr. Garima Pulliam PROTIMEon 01-12-2023 INR Coag (PPP) [Relative time] 1.16 {INR} Normal [facility] Comment on above: Performed By: #### P TT, PT ####[facility] Ymxixfpazp[address] [place], [place] [address]Dr. Garima Pulliam INR GUIDELINES SEE BELOW Normal [facility] Comment on above: Result Comment: [place] RED INR: 2.0 - 3.0 CONDITIONS NOT LISTED BELOW 2.5 - 3.5 FOR PROSTHETIC HEART VALVE REPLACEMENT 2.5 - 3.5 RECURRENT THROMBOSIS Performed By: #### P TT, PT ####[facility] Kfuzshlrpt[address] [place], [place] [address]Dr. Garima Pulliam PT Coag (PPP) [Time] 12.2 s Critically high 9.0-11.6 [facility] Comment on above: Performed By: #### P TT, PT ####[facility] Gygylkorcy[address] [place], [place] [address]Dr. Garima Pulliam PTTon 01-12-2023 aPTT Coag (Bld) [Time] 29.1 s Normal 22.3-36.2 [facility] Comment on above: Performed By: #### P TT, PT ####[facility] Zpsyhimhfs[address] [place], [place] [address]Dr. Garima Pulliam TROPONIN, HIGH SENSITIVITYon 01-12-2023 HSTROP 10.3 pg/mL Normal 4.0-76.1 [facility] Comment on above: Result Comment: CUT- OFF POINTS HAVE BEEN ESTABLISHED BASED ON THE FOURTH UNIVERSAL DEFINITIONS OF MYOCARDIALINFARCTION. THE UPPER REFERENCE LIMIT (URL) OF TROPONIN, DEFINED THE 99TH PERCENTILE OFcTnI DISTRIBUTION IN A REFERENCE POPULATION, HAS BEEN CONFIRMED THE DECISION THRESHOLDFOR SC DIAGNOSIS. Performed By: #### H STROPN ####[facility] [address]qvoquhl[address] [place] [id number]. Garima Pulliam HSTROP 9.2 pg/mL Normal 4.0-76.1 [facility] Comment on above: Result Comment: CUT- OFF POINTS HAVE BEEN ESTABLISHED BASED ON THE FOURTH UNIVERSAL DEFINITIONS OF MYOCARDIALINFARCTION. THE UPPER REFERENCE LIMIT (URL) OF TROPONIN, DEFINED THE 99TH PERCENTILE OFcTnI DISTRIBUTION IN A REFERENCE POPULATION, HAS BEEN CONFIRMED THE DECISION THRESHOLDFOR SC DIAGNOSIS. Performed By: #### C MP, BNP, HSTROPN ####[facility] [address]xdvwobpk[address] [place] [address]Dr. Garima Pulliam XR CHEST 1 Von 01-12-2023 XR CHEST 1 V Normal [facility] XR CHEST 1 Von 01-01-2023 XR CHEST 1 V Normal [facility] CARDIAC NASH 3-6on 3 CK [Catalytic activity/Vol] 196 U/L Normal 39-308 [facility] Comment on above: Performed By: #### C MREP ####[facility] Npzltlrwav18[address] [place] [address]Dr. Garima Pulliam CK.MB [Mass/Vol] 7.41 ng/mL Critically high <=3.60 [facility] Comment on above: Performed By: #### C MREP ####[facility] Fmunqjjhnf[address] [place] [address]Dr. Garima Pulliam HSTROP 10.3 pg/mL Normal 4.0-76.1 [facility] Comment on above: Result Comment: CUT- OFF POINTS HAVE BEEN ESTABLISHED BASED ON THE FOURTH UNIVERSAL DEFINITIONS OF MYOCARDIALINFARCTION. THE UPPER REFERENCE LIMIT (URL) OF TROPONIN, DEFINED THE 99TH PERCENTILE OFcTnI DISTRIBUTION IN A REFERENCE POPULATION, HAS BEEN CONFIRMED THE DECISION THRESHOLDFOR SC DIAGNOSIS. Performed By: #### C MREP ####[facility] [address]uficxutmq[address] [place] [id number]. Garima Pulliam XR CHEST 1 Von 12-26-2022 XR CHEST 1 V Normal [facility] BNPon 12-25-2022 Natriuretic peptide B (Bld) [Mass/Vol] 98.0 pg/mL Normal <=900.0 [facility] Comment on above: Performed By: #### B MARVIN FRENCH CMADM ####[facility] Pyibvylzeq[address] [place] [address]Dr. Garima Heraclio CARDIAC NASH ADMITon 023 CK [Catalytic activity/Vol] 208 U/L Normal 39-308 [facility] Comment on above: Performed By: #### B MARVIN FRENCH CMADM ####[facility] Cgtfvswegc[address] [place] [address]Dr. Garima Pulliam CK.MB [Mass/Vol] 7.63 ng/mL Critically high <=3.60 [facility] Comment on above: Performed By: #### B MARVIN FRENCH CMADM ####[facility] Jmeaxsxqcl99[address] [place] [address]Dr. Chapisrenu Pulliam HSTROP 8.8 pg/mL Normal 4.0-76.1 [facility] Comment on above: Result Comment: CUT- OFF POINTS HAVE BEEN ESTABLISHED BASED ON THE FOURTH UNIVERSAL DEFINITIONS OF MYOCARDIALINFARCTION. THE UPPER REFERENCE LIMIT (URL) OF TROPONIN, DEFINED THE 99TH PERCENTILE OFcTnI DISTRIBUTION IN A REFERENCE POPULATION, HAS BEEN CONFIRMED THE DECISION THRESHOLDFOR SC DIAGNOSIS. Performed By: #### B MARVIN FRENCH CMADM ####[facility] Qhwrcqkivp[address] [place] [address]Dr. Garima Pulliam DORIS 83 ng/mL Normal 16-96 [facility] Comment on above: Performed By: #### B MARVIN FRENCH CMADM ####[facility] Iobvcojkwr32[address] [place] [address]Dr. Garima Pulliam CBC AUTO DIFFon 12-25-2022 BASO # 0.0 103/ul Normal 0.0-0.1 [facility] Comment on above: Performed By: #### C BC ####[facility] [address]ufuhtwuy[address] [place] [address]Dr. Garima Pulliam Basophils/100 WBC (Bld) 0.0 % Critically low 0.2-2.0 [facility] Comment on above: Performed By: #### C BC ####[facility] Leigdlspzm01[address] [place] [id number]. Garima Pulliam EO # 0.0 103/ul Normal 0.0-0.7 [facility] Comment on above: Performed By: #### C BC ####[facility] Qandejzali8091 [place] [id number]. Garima Pulliam Eosinophils/100 WBC (Bld) 0.7 % Critically low 0.9-7.0 [facility] Comment on above: Performed By: #### C BC ####[facility] Lhowabynvo[address] [place], [place] [address]Dr. Garima Pulliam Erythrocyte distribution width (RBC) [Ratio] 13.4 % Normal 11.0-15.0 [facility] Comment on above: Performed By: #### C BC ####[facility] Hoscqwfvpm[address] [place], [place] [address]Dr. Garima Pulliam Hematocrit (Bld) [Volume fraction] 42.9 % Normal 42.0-54.0 [facility] Comment on above: Performed By: #### C BC ####[facility] Vhrcnfnins[address] [place], [place] [address]Dr. Garima Pulliam Hemoglobin (Bld) [Mass/Vol] 14.4 g/dL Normal 14.0-18.0 [facility] Comment on above: Performed By: #### C BC ####[facility] Twptitdrdo[address] [place], [place] [address]Dr. Garima Pulliam IG # 0.00 10e3/ul Normal 0.00-0.03 [facility] Comment on above: Performed By: #### C BC ####[facility] Femdnanhsh[address] [place], [place] [address]Dr. Garima Pulliam IG % 0.0 % Normal 0.0-0.5 [facility] Comment on above: Performed By: #### C BC ####[facility] Dkizkbcqgk[address] [place], [place] [address]Dr. Garima Pulliam LYMPH # 2.4 103/ul Normal 1.2-3.8 [facility] Comment on above: Performed By: #### C BC ####[facility] Ybqqirstkg2386 [place] [id number]. Garima Heraclio Lymphocytes/100 WBC (Bld) 29.2 % Normal 20.5-60.0 [facility] Comment on above: Performed By: #### C BC ####[facility] Bftdxqrsbv9715 [place] [id number]. Garima Pulliam MANUAL DIFF REQ NO Normal [facility] Comment on above: Performed By: #### C BC ####[facility] Qgsoehpgqx8789 [place] [id number]. Garima Heraclio MCH (RBC) [Entitic mass] 30.7 pg Normal 25.9-34.0 [facility] Comment on above: Performed By: #### C BC ####[facility] Z[address]zh[address]zjxv[address] [place], [place] [address]Dr. Garima Pulliam MCHC (RBC) [Mass/Vol] 33.6 g/dL Normal 29.9-35.2 [facility] Comment on above: Performed By: #### C BC ####[facility] [address]iclkvms[address] [place], [place] [address]Dr. Garima Heraclio MCV (RBC) [Entitic vol] 91.5 fL Normal 80.0-94.0 [facility] Comment on above: Performed By: #### C BC ####[facility] Cxrpbeudzc[address] [place], [place] [address]Dr. Garima Pulliam MONO # 0.0 103/ul Critically low 0.3-0.8 [facility] Comment on above: Performed By: #### C BC ####[facility] Icqdupimva[address] [place], [place] [id number]. Garima Pulliam Monocytes/100 WBC (Bld) 8.0 % Normal 1.7-12.0 [facility] Comment on above: Performed By: #### C BC ####[facility] Aphufeknfk[address] [place], [place] [id number]. Garima Pulliam NEUT # 5.1 103/ul Normal 1.4-6.5 [facility] Comment on above: Performed By: #### C BC ####[facility] Ajanuzazfw6262 [place], [place] [address]Bg. Garima Pulliam Neutrophils/100 WBC (Bld) 62.8 % Normal 43.0-75.0 [facility] Comment on above: Performed By: #### C BC ####[facility] Aacvtgsaqb4974 [place], [place] [address]Mw. Garima Pulliam Platelet mean volume (Bld) [Entitic vol] 8.6 fL Critically low 9.5-13.5 [facility] Comment on above: Performed By: #### C BC ####[facility] Ygnzilycsk0719 [place], [place] [address]Rv. Garima Pulliam PLT 200 103/ul Normal 150-450 [facility] Comment on above: Performed By: #### C BC ####[facility] Ckkwzavyyr3792 [place], [place] [address]To. Garima Pulliam RBC 4.69 106/ul Critically low 4.70-6.10 [facility] Comment on above: Performed By: #### C BC ####[facility] Llshyvhcqg9036 [place], [place] [address]Tm. Garima Pulliam WBC 8.2 103/ul Normal 4.0-11.0 [facility] Comment on above: Performed By: #### C BC ####[facility] Yjrwvmjrdo4584 [place], [place] [address]Vb. Garima Pulliam Covid-19 PCR (CVDTB)on SARS-CoV-2 (COVID-19) RNA MARIE+probe Ql (Unsp spec) Not detected Normal NOT DETECTED [facility] Comment on above: Result Comment: When [...] for this test is supported by the [place] of Health and Human Service's declaration that [...] be used). Performed By: #### C VDTBH ####[facility] Svbxszitpi[address] [place], [place] [address]DrAdalberto Pulliam INFLUENZA A AND B AGon 12-25 INFLUANEGH SEE BELOW Normal [facility] Comment on above: Result Comment: Nega tive for Flu A protein angiten. Infection due to Flu A cannot be ruled out. Flu A angiten in the sample may be below the detection limit of the test. Performed By: #### I NFLUAB ####[facility] Yiijmzndil[address] [place], [place] [address]Dr. Garima Pulliam INFLUBNEG SEE BELOW Normal [facility] Comment on above: Result Comment: Nega tive for Flu B protein antigen. Infection due to Flu B cannot be ruled out. Flu B antigen in the sample may be below the detection limit of the test. Performed By: #### I NFLUAB ####[facility] Hbpwaocqsl[address] [place], [place] [address]Dr. Garima Pulliam INFLUENZA A AG Negative Normal NEGATIVE SEE COMMENT [facility] Comment on above: Performed By: #### I NFLUAB ####[facility] Zfyoiynbxu[address] [place], [place] [address]DrAdalberto Pulliam INFLUENZA B AG Negative Normal NEGATIVE SEE COMMENT [facility] Comment on above: Performed By: #### I NFLUAB ####[facility] Wnnyfyjjji149[address] [place], [place] [address]DrAdalberto Pulliam PROF CHEM 8 (BAS METB)on Anion gap [Moles/Vol] 11.1 mmol/L Normal Th [facility] Comment on above: Performed By: #### B MATERIALS ANALYST, BMP, CMADM ####[facility] Qoehimgpvs[address] [place], [place] [address]Dr. Garima Pulliam Calcium [Mass/Vol] 8.5 mg/dL Normal 8.5-10.1 [facility] Comment on above: Performed By: #### B MATERIALS ANALYST, MARVIN, CMAANA ROSA ####[facility] Oixalsryty6386 [place] [address]Dr. Garima Pulliam Chloride [Moles/Vol] 106 mmol/L Normal 98-107 [facility] Comment on above: Performed By: #### B MATERIALS ANALYST, MARVIN, CMADM ####[facility] Vjfpptbgng9308 [place] [address]Dr. Garima Pulliam CO2 [Moles/Vol] 27.4 mmol/L Normal 21.0-32.0 [facility] Comment on above: Performed By: #### B MATERIALS ANALYSTMARVIN CMAANA ROSA ####[facility] Hxiidrzaxw0894 [place] [address]Dr. Garima Pulliam Creatinine [Mass/Vol] 0.65 mg/dL Critically low 0.70-1.30 [facility] Comment on above: Performed By: #### B MATERIALS ANALYST, MARVIN, CMADM ####[facility] Muendyrjxx6405 [place] [address]Dr. Garima Pulliam EGFR-AF ST LUCIAN >60 Normal >=60 [facility] Comment on above: Performed By: #### B MATERIALS ANALYSTMARVIN, CMADM ####[facility] Tcgnhuthim8229 [place] [address]Dr. Garima Pulliam EGFR-NON AF [facility] LUCIAN >60 Normal >=60 [facility] Comment on above: Performed By: #### B MATERIALS ANALYST, MARVIN, CMADM ####[facility] Ucyewjadxz0789 [place] [address]Dr. Garima Pulliam Glucose [Mass/Vol] 140 mg/dL Critically high 74-106 [facility] Comment on above: Performed By: #### B MATERIALS ANALYST, MARVIN, CMADM ####[facility] Skspyexcul9844 [place] [address]Dr. Garima Pulliam Potassium [Moles/Vol] 3.5 mmol/L Normal 3.5-5.1 [facility] Comment on above: Performed By: #### B MATERIALS ANALYST, MARVIN, CMADM ####[facility] Ylddtfwsem2455 [place] [address]Dr. Garima Pulliam Sodium [Moles/Vol] 141 mmol/L Normal 136-145 [facility] Comment on above: Performed By: #### B MATERIALS ANALYST, BMP, CMADM ####[facility] Nhzxzcvmhl2852 [place] [address]Dr. Garima Pulliam Urea nitrogen [Mass/Vol] 8.0 mg/dL Normal 7.0-18.0 [facility] Comment on above: Performed By: #### B MATERIALS ANALYST, BMP, CMADM ####[facility] Qeziytzxnp9723 [place] [address]Dr. Gariam Pulliam Urea nitrogen/Creatinine [Mass ratio] 12.3 mg/mg Normal [facility] Comment on above: Performed By: #### B MATERIALS ANALYST, BMP, CMADM ####[facility] Zswznfsvjb5254 [place] [address]Dr. Garima Pulliam CARDIAC NASH ADMITon 023 CK [Catalytic activity/Vol] 165 U/L Normal 39-308 [facility] Comment on above: Performed By: #### B MP, CMADM ####[facility] Hnwaswpbxa6913[address] [place], [place] [address]Dr. Garima Pulliam CK.MB [Mass/Vol] 6.48 ng/mL Critically high <=3.60 [facility] Comment on above: Performed By: #### B MP, CMADM ####[facility] Pbgnsldafp008[address] [place], [place] [address]Dr. Garima Heraclio HSTROP 11.7 pg/mL Normal 4.0-76.1 [facility] Comment on above: Result Comment: CUT- OFF POINTS HAVE BEEN ESTABLISHED BASED ON THE FOURTH UNIVERSAL DEFINITIONS OF MYOCARDIALINFARCTION. THE UPPER REFERENCE LIMIT (URL) OF TROPONIN, DEFINED THE 99TH PERCENTILE OFcTnI DISTRIBUTION IN A REFERENCE POPULATION, HAS BEEN CONFIRMED THE DECISION THRESHOLDFOR SC DIAGNOSIS. Performed By: #### B MP, CMADM ####[facility] Qochwrumqs7607 [place] [address]Dr. Garima Pulliam DORIS 83 ng/mL Normal 16-96 [facility] Comment on above: Performed By: #### B MP, CMADM ####[facility] Eawbomqqfn5399 [place] [address]Dr. Garima Heraclio CBC AUTO DIFFon 12-10-2022 BASO # 0.0 103/ul Normal 0.0-0.1 [facility] Comment on above: Performed By: #### C BC ####[facility] Ohyjraipzc[address] [place], [place] [address]Dr. Garima Pulliam Basophils/100 WBC (Bld) 0.3 % Normal 0.2-2.0 [facility] Comment on above: Performed By: #### C BC ####[facility] Pqzjedxybl754[address] [place], [place] [address]Dr. Chapisrenu Pulliam EO # 0.1 103/ul Normal 0.0-0.7 [facility] Comment on above: Performed By: #### C BC ####[facility] Vddhofdqjh706[address] [place], [place] [address]Dr. Garima Pulliam Eosinophils/100 WBC (Bld) 0.4 % Critically low 0.9-7.0 [facility] Comment on above: Performed By: #### C BC ####[facility] Krqwkqmgnl60450[address] [place], [place] [address]Dr. Chapisrenu Pulliam Erythrocyte distribution width (RBC) [Ratio] 13.2 % Normal 11.0-15.0 [facility] Comment on above: Performed By: #### C BC ####[facility] Fdbtlestas897[address] [place], [place] [address]Dr. Garima Pulliam Hematocrit (Bld) [Volume fraction] 42.4 % Normal 42.0-54.0 [facility] Comment on above: Performed By: #### C BC ####[facility] Xzwakuusid446407 [address] [place], [place] [address]Dr. Garima Pulliam Hemoglobin (Bld) [Mass/Vol] 14.4 g/dL Normal 14.0-18.0 [facility] Comment on above: Performed By: #### C BC ####[facility] Lojalqllbq28[address] [place], [place] [address]DrAdalberto Pulliam IG # 0.05 10e3/ul Critically high 0.00-0.03 [facility] Comment on above: Performed By: #### C BC ####[facility] Njdwumsmbn6732 [place] [address]DrAdalberto Pulliam IG % 0.4 % Normal 0.0-0.5 [facility] Comment on above: Performed By: #### C BC ####[facility] Hqnjalbhcq3232 [place] [address]DrAdalberto Pulliam LYMPH # 0.8 103/ul Critically low 1.2-3.8 [facility] Comment on above: Performed By: #### C BC ####[facility] Lccjeagoqw7634 [place] [address]DrAdalberto Pulliam Lymphocytes/100 WBC (Bld) 6.5 % Critically low 20.5-60.0 [facility] Comment on above: Performed By: #### C BC ####[facility] Kvxrnfafyk[address] [place], [place] [address]DrAdalberto Pulliam MANUAL DIFF REQ NO Normal [facility] Comment on above: Performed By: #### C BC ####[facility] Klczijvtiq64[address] [place], [place] [address]DrAdalberto Pulliam MCH (RBC) [Entitic mass] 30.5 pg Normal 25.9-34.0 [facility] Comment on above: Performed By: #### C BC ####[facility] Dzlrakcwby3039[address] [place], [place] [address]DrAdalberto Pulliam MCHC (RBC) [Mass/Vol] 34.0 g/dL Normal 29.9-35.2 [facility] Comment on above: Performed By: #### C BC ####[facility] Oyavjdlxzu125[address] [place], [place] [address]DrAdalberto Pulliam MCV (RBC) [Entitic vol] 89.8 fL Normal 80.0-94.0 [facility] Comment on above: Performed By: #### C BC ####[facility] Qagdnbtsnx921[address] [place], [place] [address]DrAdalberto Pulliam MONO # 0.2 103/ul Critically low 0.3-0.8 [facility] Comment on above: Performed By: #### C BC ####[facility] Mwfoszfobc9564 [place] [address]Dr. Garima Pulliam Monocytes/100 WBC (Bld) 2.0 % Normal 1.7-12.0 [facility] Comment on above: Performed By: #### C BC ####[facility] Gssinbnmri6941 [place] [address]Dr. Garima Pulliam NEUT # 10.5 103/ul Critically high 1.4-6.5 [facility] Comment on above: Performed By: #### C BC ####[facility] Iinuapwrqw460[address] [place], [place] [address]Dr. Garima Heraclio Neutrophils/100 WBC (Bld) 90.4 % Critically high 43.0-75.0 [facility] Comment on above: Performed By: #### C BC ####[facility] Jjjerdhlxw208507 [address] [place], [place] [address]Dr. Garima Pulliam Platelet mean volume (Bld) [Entitic vol] 9.4 fL Critically low 9.5-13.5 [facility] Comment on above: Performed By: #### C BC ####[facility] Vxgsuqelho7004 [place] [address]Dr. Garima Pulliam PLT 198 103/ul Normal 150-450 [facility] Comment on above: Performed By: #### C BC ####[facility] Rscftymxan7194 [place] [address]Dr. Garima Heraclio RBC 4.72 106/ul Normal 4.70-6.10 [facility] Comment on above: Performed By: #### C BC ####[facility] Aeiwvlaqjm9439[address] [place], [place] [address]DrAdalberto Nationrenu Heraclio WBC 11.6 103/ul Critically high 4.0-11.0 [facility] Comment on above: Performed By: #### C BC ####[facility] Bjdjlfvwim592[address] [place], [place] [address]DrAdalberto Pulliam PROF CHEM 8 (BAS METB)on Anion gap [Moles/Vol] 11.3 mmol/L Normal Th [facility] Comment on above: Performed By: #### B NANCY HERNANDEZ ####[facility] Unqnphxyiw7867 [place] [address]Dr. Garima Pulliam Calcium [Mass/Vol] 8.9 mg/dL Normal 8.5-10.1 [facility] Comment on above: Performed By: #### B NANCY HERNANDEZ ####[facility] Empnaarfnq5769 [place] [address]Dr. Chapisrenu Pulliam Chloride [Moles/Vol] 103 mmol/L Normal 98-107 [facility] Comment on above: Performed By: #### NANCY Larkin MP ####[facility] Teblitjnse4625[address] [place], [place] [address]Dr. Chapisrenu Pulliam CO2 [Moles/Vol] 28.2 mmol/L Normal 21.0-32.0 [facility] Comment on above: Performed By: #### NANCY Larkin MP ####[facility] Brajhiuzif267[address] [place], [place] [address]Dr. Garima Pulliam Creatinine [Mass/Vol] 0.60 mg/dL Critically low 0.70-1.30 [facility] Comment on above: Performed By: #### NANCY Larkin MP ####[facility] Jiteoehpfn[address] [place], [place] [address]Dr. Garima Pulliam EGFR-AF [facility] LUCIAN >60 Normal >=60 [facility] Comment on above: Performed By: #### NANCY Larkin MP ####[facility] Acvivtubpw9070 [place] [address]Dr. Garima Pullima EGFR-NON AF [facility] LUCIAN >60 Normal >=60 [facility] Comment on above: Performed By: #### NANCY Larkin MP ####[facility] Iavjdlgcav196[address] [place], [place] [address]Dr. Garima Pulliam Glucose [Mass/Vol] 166 mg/dL Critically high 74-106 [facility] Comment on above: Performed By: #### NANCY Larkin MP ####[facility] Vevvuvzvkj3803 [place] [address]Dr. Chapisrenu Pulliam Potassium [Moles/Vol] 3.5 mmol/L Normal 3.5-5.1 [facility] Comment on above: Performed By: #### B NANCY HERNANDEZ ####[facility] Ieegsjoumi8172 [place] [address]Dr. Garima Pulliam Sodium [Moles/Vol] 139 mmol/L Normal 136-145 [facility] Comment on above: Performed By: #### B NANCY HERNANDEZ ####[facility] Bcnanohiuf349[address] [place], [place] [address]Dr. Garima Pulliam Urea nitrogen [Mass/Vol] 9.0 mg/dL Normal 7.0-18.0 [facility] Comment on above: Performed By: #### B NANCY HERNANDEZ ####[facility] Tkjouvogxz744[address] [place], [place] [address]Dr. Garima Pulliam Urea nitrogen/Creatinine [Mass ratio] 15.0 mg/mg Normal [facility] Comment on above: Performed By: #### B NANCY HERNANDEZ ####[facility] Crtkzsjyel9[address] [place], [place] [address]Dr. Chapisrenu Pulliam XR CHEST 1 Von 12-10-2022 XR CHEST 1 V Normal [facility] BNPon 11-27-2022 Natriuretic peptide B (Bld) [Mass/Vol] 95.0 pg/mL Normal <=900.0 [facility] Comment on above: Performed By: #### C MP, HSTROPN, BNP ####[facility] Vldwhrqyny179[address] [place], [place] [address]Dr. Garima Pulliam CBC AUTO DIFFon 11-27-2022 BASO # 0.0 103/ul Normal 0.0-0.1 [facility] Comment on above: Performed By: #### C BC ####[facility] Hazlnmipqn9[address] [place], [place] [address]Dr. Garima Pulliam Basophils/100 WBC (Bld) 0.2 % Normal 0.2-2.0 [facility] Comment on above: Performed By: #### C BC ####[facility] Ozngbjkwoc5740 [place] [id number]. Garima Pulliam EO # 0.2 103/ul Normal 0.0-0.7 [facility] Comment on above: Performed By: #### C BC ####[facility] Qobgklpdim9262 [place] [address]Dr. Garima Pulliam Eosinophils/100 WBC (Bld) 2.0 % Normal 0.9-7.0 [facility] Comment on above: Performed By: #### C BC ####[facility] Vihohsrsuj8387 [place] [address]Dr. Garima Pulliam Erythrocyte distribution width (RBC) [Ratio] 13.2 % Normal 11.0-15.0 [facility] Comment on above: Performed By: #### C BC ####[facility] Eexftjlioi[address] [place], [place] [address]Dr. Garima Pulliam Hematocrit (Bld) [Volume fraction] 42.4 % Normal 42.0-54.0 [facility] Comment on above: Performed By: #### C BC ####[facility] Roaryfipwr2092 [place] [address]Dr. Garima Pulliam Hemoglobin (Bld) [Mass/Vol] 14.4 g/dL Normal 14.0-18.0 [facility] Comment on above: Performed By: #### C BC ####[facility] Lertlplamg4997 [place] [address]Dr. Garima Pulliam IG # 0.04 10e3/ul Critically high 0.00-0.03 [facility] Comment on above: Performed By: #### C BC ####[facility] Hkhgmnwalm7219 [place] [address]Dr. Garima Pulliam IG % 0.4 % Normal 0.0-0.5 [facility] Comment on above: Performed By: #### C BC ####[facility] Lqrzoolwaa9289 [place] [address]Dr. Garima Pulliam LYMPH # 2.2 103/ul Normal 1.2-3.8 [facility] Comment on above: Performed By: #### C BC ####[facility] Gytonaugig1578 [place] [id number]. Garima Pulliam Lymphocytes/100 WBC (Bld) 21.5 % Normal 20.5-60.0 [facility] Comment on above: Performed By: #### C BC ####[facility] Qwbugahwqu4212 [place] [id number]. Garima Heraclio MANUAL DIFF REQ NO Normal [facility] Comment on above: Performed By: #### C BC ####[facility] Rfdvkjveyw3606 [place] [address]Dr. Garima Heraclio MCH (RBC) [Entitic mass] 30.4 pg Normal 25.9-34.0 [facility] Comment on above: Performed By: #### C BC ####[facility] Bdfopxrutp1859 [place] [address]Dr. Garima Heraclio MCHC (RBC) [Mass/Vol] 34.0 g/dL Normal 29.9-35.2 [facility] Comment on above: Performed By: #### C BC ####[facility] Ftytatzsze1253 [place] [address]Dr. Garima Heraclio MCV (RBC) [Entitic vol] 89.6 fL Normal 80.0-94.0 [facility] Comment on above: Performed By: #### C BC ####[facility] Jwfimrlaoo254[address] [place], [place] [address]Dr. Garima Pulliam MONO # 0.8 103/ul Normal 0.3-0.8 [facility] Comment on above: Performed By: #### C BC ####[facility] Ujifmtesxa0301 [place] [address]Dr. Chapisrenu Pulliam Monocytes/100 WBC (Bld) 7.7 % Normal 1.7-12.0 [facility] Comment on above: Performed By: #### C BC ####[facility] Oqzrwmodgn7855 [place] [address]Dr. Garima Pulliam NEUT # 7.0 103/ul Critically high 1.4-6.5 [facility] Comment on above: Performed By: #### C BC ####[facility] Eqgpqtcpff0424 [place] [address]Dr. Garima Pulliam Neutrophils/100 WBC (Bld) 68.2 % Normal 43.0-75.0 [facility] Comment on above: Performed By: #### C BC ####[facility] Junpqgyjzb5344 [place] [address]Dr. Chapisrenu Heraclio Platelet mean volume (Bld) [Entitic vol] 8.9 fL Critically low 9.5-13.5 [facility] Comment on above: Performed By: #### C BC ####[facility] Xdlklejrmd3113 [place] [address]Dr. Garima Pulliam PLT 222 103/ul Normal 150-450 [facility] Comment on above: Performed By: #### C BC ####[facility] Hjevlrefjj8[address] [place], [place] [address]Dr. Garima Pulliam RBC 4.73 106/ul Normal 4.70-6.10 [facility] Comment on above: Performed By: #### C BC ####[facility] Vwntgylfhk[address] [place], [place] [address]Dr. Garima Pulliam WBC 10.3 103/ul Normal 4.0-11.0 [facility] Comment on above: Performed By: #### C BC ####[facility] Chliywxzhk530[address] [place], [place] [address]Dr. Garima Pulliam PROF 14(COMP METB)on 023 Albumin [Mass/Vol] 3.7 g/dL Normal 3.4-5.0 [facility] Comment on above: Performed By: #### C MP, HSTROPN, BNP ####[facility] Kpeppposql2410 [place] [address]Dr. Garima Pulliam Albumin/Globulin [Mass ratio] 1.5 {ratio} Normal [facility] Comment on above: Performed By: #### C MP, HSTROPN, BNP ####[facility] Clufahmuxh6050 [place] [address]Dr. Garima Pulliam ALP [Catalytic activity/Vol] 79 U/L Normal 46-116 [facility] Comment on above: Performed By: #### C MP, HSTROPN, BNP ####[facility] Tzpdmsieqh7721 [place] [address]Dr. Garima Pulliam ALT [Catalytic activity/Vol] 32 U/L Normal 16-63 [facility] Comment on above: Performed By: #### C MP, HSTROPN, BNP ####[facility] Ugypfztdnj5303 [place] [address]Dr. Garima Pulliam Anion gap [Moles/Vol] 9.5 mmol/L Normal [facility] Comment on above: Performed By: #### C MP, HSTROPN, BNP ####[facility] Tolkbogidx[address] [place], [place] [address]Dr. Garima Pulliam AST [Catalytic activity/Vol] 25 U/L Normal 15-37 [facility] Comment on above: Performed By: #### C MP, HSTROPN, BNP ####[facility] Sqevswcqxk[address] [place], [place] [address]Dr. Garima Pulliam Bilirubin [Mass/Vol] 0.4 mg/dL Normal 0.2-1.0 [facility] Comment on above: Performed By: #### C MP, HSTROPN, BNP ####[facility] Qhzypaxarp[address] [place], [place] [address]Dr. Garima Pulliam Calcium [Mass/Vol] 8.9 mg/dL Normal 8.5-10.1 [facility] Comment on above: Performed By: #### C MP, HSTROPN, BNP ####[facility] Hkjlfgyfzw[address] [place], [place] [address]Dr. Garima Pulliam Chloride [Moles/Vol] 103 mmol/L Normal 98-107 [facility] Comment on above: Performed By: #### C MP, HSTROPN, BNP ####[facility] Zlubxjktsy74[address] [place], [place] [address]Dr. Garima Pulliam CO2 [Moles/Vol] 28.6 mmol/L Normal 21.0-32.0 [facility] Comment on above: Performed By: #### C MP, HSTROPN, BNP ####[facility] Kwlvxvpnbt8369 [place] [address]Dr. Garima Pulliam Creatinine [Mass/Vol] 0.72 mg/dL Normal 0.70-1.30 [facility] Comment on above: Performed By: #### C MP, HSTROPN, BNP ####[facility] Copczqkboo5507 [place] [id number]. Garima Pulliam EGFR-AF [facility] LUCIAN >60 Normal >=60 [facility] Comment on above: Performed By: #### C MP, HSTROPN, BNP ####[facility] Qaijhbnito9525 [place] [address]Dr. Garima Pulliam EGFR-NON AF [facility] LUCIAN >60 Normal >=60 [facility] Comment on above: Performed By: #### C MP, HSTROPN, BNP ####[facility] Vpinagdnsj2092 [place] [address]Dr. Garima Pulliam Globulin (S) [Mass/Vol] 2.5 g/dL Normal [facility] Comment on above: Performed By: #### C MP, HSTROPN, BNP ####[facility] Odsejipwed[address] [place], [place] [address]Dr. Garima Pulliam Glucose [Mass/Vol] 114 mg/dL Critically high 74-106 [facility] Comment on above: Performed By: #### C MP, HSTROPN, BNP ####[facility] Xyegdjzuuw6412 [place] [address]Dr. Graima Pulliam Potassium [Moles/Vol] 4.1 mmol/L Normal 3.5-5.1 [facility] Comment on above: Performed By: #### C MP, HSTROPN, BNP ####[facility] Oxobmbtbgc6876 [place] [address]Dr. Garima Pulliam Protein [Mass/Vol] 6.2 g/dL Critically low 6.4-8.2 [facility] Comment on above: Performed By: #### C MP, HSTROPN, BNP ####[facility] Zojhpspwqt941007 [address] [place], [place] [address]Dr. Garima Pulliam Sodium [Moles/Vol] 137 mmol/L Normal 136-145 [facility] Comment on above: Performed By: #### C MP, HSTROPN, BNP ####[facility] [address]imtxrspa[address] [place] [address]Dr. Garima Pulliam Urea nitrogen [Mass/Vol] 13.0 mg/dL Normal 7.0-18.0 [facility] Comment on above: Performed By: #### C MP, HSTROPN, BNP ####[facility] Lbpmdbrkvc[address] [place] [address]Dr. Garima Pulliam Urea nitrogen/Creatinine [Mass ratio] 18.1 mg/mg Normal [facility] Comment on above: Performed By: #### C MP, HSTROPN, BNP ####[facility] [address]kynnohkk[address] [place] [address]Dr. Garima Pulliam TROPONIN, HIGH SENSITIVITYon 11-27-2022 HSTROP 11.8 pg/mL Normal 4.0-76.1 [facility] Comment on above: Result Comment: CUT- OFF POINTS HAVE BEEN ESTABLISHED BASED ON THE FOURTH UNIVERSAL DEFINITIONS OF MYOCARDIALINFARCTION. THE UPPER REFERENCE LIMIT (URL) OF TROPONIN, DEFINED THE 99TH PERCENTILE OFcTnI DISTRIBUTION IN A REFERENCE POPULATION, HAS BEEN CONFIRMED THE DECISION THRESHOLDFOR SC DIAGNOSIS. Performed By: #### C MP, HSTROPN, BNP ####[facility] Xlptlptrqr[address] [place], [place] [address]Dr. Garima Pulliam XR CHEST 1 Von 11-27-2022 XR CHEST 1 V Normal [facility] BNPon 11-20-2022 Natriuretic peptide B (Bld) [Mass/Vol] 73.0 pg/mL Normal <=900.0 [facility] Comment on above: Performed By: #### B MP, HSTROPN, BNP ####[facility] Jhtdtdxahp[address] [place], [place] [address]Dr. Garima Pulliam CBC AUTO DIFFon 11-20-2022 BASO # 0.0 103/ul Normal 0.0-0.1 [facility] Comment on above: Performed By: #### C BC ####[facility] [address] [place] [address]. Garima Pulliam Basophils/100 WBC (Bld) 0.3 % Normal 0.2-2.0 [facility] Comment on above: Performed By: #### C BC ####[facility] Ploppeocpe[address] [place] [address]Dr. Garima Pulliam EO # 0.2 103/ul Normal 0.0-0.7 [facility] Comment on above: Performed By: #### C BC ####[facility] Ccjnznaegl[address] [place], [place] [address]Dr. Garima Pulliam Eosinophils/100 WBC (Bld) 2.1 % Normal 0.9-7.0 [facility] Comment on above: Performed By: #### C BC ####[facility] Vtbcyfojig[address] [place], [place] [address]Dr. Garima Pulliam Erythrocyte distribution width (RBC) [Ratio] 13.2 % Normal 11.0-15.0 [facility] Comment on above: Performed By: #### C BC ####[facility] Iklqotwpzq[address] [place], [place] [address]Dr. Garima Pulliam Hematocrit (Bld) [Volume fraction] 43.4 % Normal 42.0-54.0 [facility] Comment on above: Performed By: #### C BC ####[facility] Uwgtjffuql[address] [place], [place] [address]Dr. Garima Pulliam Hemoglobin (Bld) [Mass/Vol] 14.6 g/dL Normal 14.0-18.0 [facility] Comment on above: Performed By: #### C BC ####[facility] Xdhangkzzz[address] [place], [place] [address]Dr. Garima Pulliam IG # 0.02 10e3/ul Normal 0.00-0.03 [facility] Comment on above: Performed By: #### C BC ####[facility] Qofvjxtvzr56[address] [place], [place] [address]Dr. Garima Pulliam IG % 0.2 % Normal 0.0-0.5 [facility] Comment on above: Performed By: #### C BC ####[facility] [address]fsx[address]zrq37[address] [place] [id number]. Garima Heraclio LYMPH # 2.1 103/ul Normal 1.2-3.8 [facility] Comment on above: Performed By: #### C BC ####[facility] Hscccjtsrh30[address] [place] [address]Dr. Garima Pulliam Lymphocytes/100 WBC (Bld) 19.2 % Critically low 20.5-60.0 [facility] Comment on above: Performed By: #### C BC ####[facility] Xrhmgitnzs9987 [place] [address]Dr. Garima Pulliam MANUAL DIFF REQ NO Normal [facility] Comment on above: Performed By: #### C BC ####[facility] Ltgjftgxfi4[address] [place] [address]Dr. Garima Pulliam MCH (RBC) [Entitic mass] 30.4 pg Normal 25.9-34.0 [facility] Comment on above: Performed By: #### C BC ####[facility] Baongfxxpo9[address] [place], [place] [address]Dr. Garima Pulliam MCHC (RBC) [Mass/Vol] 33.6 g/dL Normal 29.9-35.2 [facility] Comment on above: Performed By: #### C BC ####[facility] Grynevowqe24[address] [place] [address]Dr. Garima Pulliam MCV (RBC) [Entitic vol] 90.4 fL Normal 80.0-94.0 [facility] Comment on above: Performed By: #### C BC ####[facility] Vtofflaycd[address] [place], [place] [address]Dr. Garima Pulliam MONO # 0.6 103/ul Normal 0.3-0.8 [facility] Comment on above: Performed By: #### C BC ####[facility] Hnkcwxadzu[address] [place], [place] [address]Dr. Garima Pulliam Monocytes/100 WBC (Bld) 5.8 % Normal 1.7-12.0 [facility] Comment on above: Performed By: #### C BC ####[facility] [address] [place] [id number]. Garima Pulliam NEUT # 7.8 103/ul Critically high 1.4-6.5 [facility] Comment on above: Performed By: #### C BC ####[facility] Yqsblqyqgk6[address] [place] [id number]. Garima Pulliam Neutrophils/100 WBC (Bld) 72.4 % Normal 43.0-75.0 [facility] Comment on above: Performed By: #### C BC ####[facility] Mvsvymbjyx5984 [place] [id number]. Garima Pulliam Platelet mean volume (Bld) [Entitic vol] 8.7 fL Critically low 9.5-13.5 [facility] Comment on above: Performed By: #### C BC ####[facility] Bsnszdkeoh13[address] [place] [id number]. Garima Pulliam PLT 184 103/ul Normal 150-450 [facility] Comment on above: Performed By: #### C BC ####[facility] Kerzboibuv76[address] [place] [id number]. Garima Pulliam RBC 4.80 106/ul Normal 4.70-6.10 [facility] Comment on above: Performed By: #### C BC ####[facility] Tbzsczkgcv5130 [place] [id number]. Garima Pulliam WBC 10.8 103/ul Normal 4.0-11.0 [facility] Comment on above: Performed By: #### C BC ####[facility] Daenftboll6[address] [place] [address]Dr. Garima Pulliam [facility] SARS-CoV-2 (COVID-19) RNA MARIE+probe Ql (Unsp spec) Not detected Normal NOT DETECTED [facility] Comment on above: Result Comment: When [...] for this test is supported by the [employer] and Human Service's declaration that [...] be used). Performed By: #### C VDTBH ####[facility] Afzteyqjfk[address] [place], [place] [address]Dr. Garima Pulliam INFLUENZA A AND B AGon 11-20 INFLUANE SEE BELOW Normal [facility] Comment on above: Result Comment: Nega tive for Flu A protein angiten. Infection due to Flu A cannot be ruled out. Flu A angiten in the sample may be below the detection limit of the test. Performed By: #### I NFLUAB ####[facility] Zsgqcxmhmk[address] [place], [place] [address]Dr. Garima Pulliam INFLUBNEGH SEE BELOW Normal [facility] Comment on above: Result Comment: Nega tive for Flu B protein antigen. Infection due to Flu B cannot be ruled out. Flu B antigen in the sample may be below the detection limit of the test. Performed By: #### I NFLUAB ####[facility] Hswtylwn[address] [place], [place] [address]Dr. Garima Pulliam INFLUENZA A AG Negative Normal NEGATIVE SEE COMMENT [facility] Comment on above: Performed By: #### I NFLUAB ####[facility] Tdvmvmxprq[address] [place], [place] [address]Dr. Garima Pulliam INFLUENZA B AG Negative Normal NEGATIVE SEE COMMENT [facility] Comment on above: Performed By: #### I NFLUAB ####[facility] Czfwzlfgjc[address] [place], [place] [address]Dr. Garima Pulliam PROF CHEM 8 (BAS METB)on Anion gap [Moles/Vol] 8.2 mmol/L Normal [facility] Comment on above: Performed By: #### B MP, HSTROPN, BNP ####[facility] Hwgiavozwf8[address] [place] [address]Dr. Garima Pulliam Calcium [Mass/Vol] 8.7 mg/dL Normal 8.5-10.1 [facility] Comment on above: Performed By: #### B MP, HSTROPN, BNP ####[facility] Zfuyuuwbcd39[address] [place] [address]Dr. Garima Pulliam Chloride [Moles/Vol] 103 mmol/L Normal 98-107 [facility] Comment on above: Performed By: #### B MP, HSTROPN, BNP ####[facility] Cylslxnqej1362 [place] [address]Dr. Garima Pulliam CO2 [Moles/Vol] 29.4 mmol/L Normal 21.0-32.0 [facility] Comment on above: Performed By: #### B MP, HSTROPN, BNP ####[facility] Yjfpxzihrx[address] [place], [place] [address]Dr. Garima Pulliam Creatinine [Mass/Vol] 0.69 mg/dL Critically low 0.70-1.30 [facility] Comment on above: Performed By: #### B MP, HSTROPN, BNP ####[facility] Vfndpglekj3[address] [place] [address]Dr. Garima Pulliam EGFR-AF [facility] LUCIAN >60 Normal >=60 [facility] Comment on above: Performed By: #### B MP, HSTROPN, BNP ####[facility] Wnghodwljg25[address] [place] [address]Dr. Garima Pulliam EGFR-NON AF [facility] LUCIAN >60 Normal >=60 [facility] Comment on above: Performed By: #### B MP, HSTROPN, BNP ####[facility] Hoopbftxmm23[address] [place] [address]Dr. Garima Pulliam Glucose [Mass/Vol] 209 mg/dL Critically high 74-106 [facility] Comment on above: Performed By: #### B MP, HSTROPN, BNP ####[facility] Rblwwexapu03[address] [place] [address]Dr. Garima Pulliam Potassium [Moles/Vol] 3.6 mmol/L Normal 3.5-5.1 [facility] Comment on above: Performed By: #### B MP, HSTROPN, BNP ####[facility] Ncjzgveyzk5036 [place] [address]Dr. Garima Pulliam Sodium [Moles/Vol] 137 mmol/L Normal 136-145 [facility] Comment on above: Performed By: #### B MP, HSTROPN, BNP ####[facility] Devfvmxokd7473 [place] [address]Dr. Garima Pulliam Urea nitrogen [Mass/Vol] 11.0 mg/dL Normal 7.0-18.0 [facility] Comment on above: Performed By: #### B MP, HSTROPN, BNP ####[facility] Grglnrreqm9631 [place] [address]Dr. Garima Pulliam Urea nitrogen/Creatinine [Mass ratio] 15.9 mg/mg Normal [facility] Comment on above: Performed By: #### B MP, HSTROPN, BNP ####[facility] Fnbyvzumwe[address] [place] [address]Dr. Garima Pulliam TROPONIN, HIGH SENSITIVITYon 11-20-2022 HSTROP 8.7 pg/mL Normal 4.0-76.1 [facility] Comment on above: Result Comment: CUT- OFF POINTS HAVE BEEN ESTABLISHED BASED ON THE FOURTH UNIVERSAL DEFINITIONS OF MYOCARDIALINFARCTION. THE UPPER REFERENCE LIMIT (URL) OF TROPONIN, DEFINED THE 99TH PERCENTILE OFcTnI DISTRIBUTION IN A REFERENCE POPULATION, HAS BEEN CONFIRMED THE DECISION THRESHOLDFOR SC DIAGNOSIS. Performed By: #### B MP, HSTROPN, BNP ####[facility] Woktfso[address] [place], [place] [address]Dr. Garima Pulliam XR CHEST 1 Von 11-20-2022 XR CHEST 1 V Normal [facility] XR CHEST 1 Von 10-02-2022 XR CHEST 1 V Normal [facility] BNPon 09-29-2022 Natriuretic peptide B (Bld) [Mass/Vol] 107.0 pg/mL Normal <=900.0 [facility] Comment on above: Performed By: #### C MP, BNP, CMADM ####[facility] Cprsfgujcw[address] [place] [address]Dr. Garima Heraclio CARDIAC NASH ADMITon 022 CK [Catalytic activity/Vol] 190 U/L Normal 39-308 [facility] Comment on above: Performed By: #### C MP, BNP, CMADM ####[facility] Jngvthugxv9[address] [place] [address]Dr. Garima Pulliam CK.MB [Mass/Vol] 11.11 ng/mL Critically high <=3.60 [facility] Comment on above: Performed By: #### C MP, BNP, CMADM ####[facility] Ocoqvhacis[address] [place] [address]Dr. Garima Heraclio HSTROP 11.8 pg/mL Normal 4.0-76.1 [facility] Comment on above: Result Comment: CUT- OFF POINTS HAVE BEEN ESTABLISHED BASED ON THE FOURTH UNIVERSAL DEFINITIONS OF MYOCARDIALINFARCTION. THE UPPER REFERENCE LIMIT (URL) OF TROPONIN, DEFINED THE 99TH PERCENTILE OFcTnI DISTRIBUTION IN A REFERENCE POPULATION, HAS BEEN CONFIRMED THE DECISION THRESHOLDFOR SC DIAGNOSIS. Performed By: #### C MP, BNP, CMADM ####[facility] Bgqibbneta32[address] [place] [address]Dr. Garima Pulliam DORIS 133 ng/mL Critically high 16-96 [facility] Comment on above: Performed By: #### C MP, BNP, CMADM ####[facility] Cozjmqlegr[address] [place] [address]Dr. Garima Pulliam CBC AUTO DIFFon 09-29-2022 BASO # 0.0 103/ul Normal 0.0-0.1 [facility] Comment on above: Performed By: #### C BC ####[facility] Gfklpbnrgs7648 [place] [address]Dr. Garima Pulliam Basophils/100 WBC (Bld) 0.2 % Normal 0.2-2.0 [facility] Comment on above: Performed By: #### C BC ####[facility] Gtmyceidsg2045 [place] [id number]. Garima Pulliam EO # 0.1 103/ul Normal 0.0-0.7 [facility] Comment on above: Performed By: #### C BC ####[facility] Uohstbxefg2092 [place] [address]Dr. Garima Pulliam Eosinophils/100 WBC (Bld) 1.4 % Normal 0.9-7.0 [facility] Comment on above: Performed By: #### C BC ####[facility] Ewvcghnozj[address] [place], [place] [address]Dr. Garima Pulliam Erythrocyte distribution width (RBC) [Ratio] 13.7 % Normal 11.0-15.0 [facility] Comment on above: Performed By: #### C BC ####[facility] Qthclifzat350[address] [place], [place] [address]Dr. Garima Pulliam Hematocrit (Bld) [Volume fraction] 45.4 % Normal 42.0-54.0 [facility] Comment on above: Performed By: #### C BC ####[facility] Tazxbzutrc[address] [place], [place] [address]Dr. Garima Pulliam Hemoglobin (Bld) [Mass/Vol] 14.8 g/dL Normal 14.0-18.0 [facility] Comment on above: Performed By: #### C BC ####[facility] Vpawdilhcf38[address] [place] [address]Dr. Garima Pulliam IG # 0.04 10e3/ul Critically high 0.00-0.03 [facility] Comment on above: Performed By: #### C BC ####[facility] Rrslsttssn[address] [place], [place] [address]Dr. Garima Pulliam IG % 0.5 % Normal 0.0-0.5 [facility] Comment on above: Performed By: #### C BC ####[facility] Dwkepjrzdt[address] [place], [place] [address]Dr. Garima Pulliam LYMPH # 1.1 103/ul Critically low 1.2-3.8 [facility] Comment on above: Performed By: #### C BC ####[facility] Qrgantrpcj9843 [place] [id number]. Garima Pulliam Lymphocytes/100 WBC (Bld) 12.7 % Critically low 20.5-60.0 [facility] Comment on above: Performed By: #### C BC ####[facility] Bbxfiwapfy1622 [place] [id number]. Garima Heraclio MANUAL DIFF REQ NO Normal [facility] Comment on above: Performed By: #### C BC ####[facility] Kjjqfjnbgp4164 [place] [id number]. Garima Heraclio MCH (RBC) [Entitic mass] 30.0 pg Normal 25.9-34.0 [facility] Comment on above: Performed By: #### C BC ####[facility] Ydrvtgwezt8519 [place] [address]Dr. Garima Heraclio MCHC (RBC) [Mass/Vol] 32.6 g/dL Normal 29.9-35.2 [facility] Comment on above: Performed By: #### C BC ####[facility] Qgfwoqbqpz0250 [place] [id number]. Garima Heraclio MCV (RBC) [Entitic vol] 91.9 fL Normal 80.0-94.0 [facility] Comment on above: Performed By: #### C BC ####[facility] Tqoooqoxgg6[address] [place] [address]Dr. Chapisrenu Heraclio MONO # 0.4 103/ul Normal 0.3-0.8 [facility] Comment on above: Performed By: #### C BC ####[facility] Mbazkbfthw9139 [place] [id number]. Garima Heraclio Monocytes/100 WBC (Bld) 4.8 % Normal 1.7-12.0 [facility] Comment on above: Performed By: #### C BC ####[facility] [address]ijvisqrrk[address] [place], [place] [address]Dr. Garima Pulliam NEUT # 7.1 103/ul Critically high 1.4-6.5 [facility] Comment on above: Performed By: #### C BC ####[facility] Cudqbxbqwt1223 [place] [id number]. Garima Pulliam Neutrophils/100 WBC (Bld) 80.4 % Critically high 43.0-75.0 [facility] Comment on above: Performed By: #### C BC ####[facility] Fqbxhowcgf7715 [place] [id number]. Garima Pulliam Platelet mean volume (Bld) [Entitic vol] 9.1 fL Critically low 9.5-13.5 [facility] Comment on above: Performed By: #### C BC ####[facility] Diujlacrnr3603 [place] [id number]. Garima Pulliam PLT 200 103/ul Normal 150-450 [facility] Comment on above: Performed By: #### C BC ####[facility] Osaoxrwbuc3327 [place] [address]Dr. Garima Pulliam RBC 4.94 106/ul Normal 4.70-6.10 [facility] Comment on above: Performed By: #### C BC ####[facility] Fhyldchagn5651 [place] [phone]. Garima Pulliam WBC 8.9 103/ul Normal 4.0-11.0 [facility] Comment on above: Performed By: #### C BC ####[facility] Azaqsrtxyj1322 [place] [id number]. Garima Pulliam [facility]on SARS-CoV-2 (COVID-19) RNA MARIE+probe Ql (Unsp spec) Not detected Normal NOT DETECTED [facility] Comment on above: Result Comment: When [...] for this test is supported by the [employer] and Human Service's declaration that [...] be used). Performed By: #### C VDTBH ####[facility] Tyqwvrmpqy0416 [place] [address]Dr. Garima Pulliam LACTATE/LACTIC ACIDon 2021 Lactate [Moles/Vol] 1.7 mmol/L Normal 0.4-1.9 [facility] Comment on above: Performed By: #### L ACT ####[facility] Erduonxpet[address] [place], [place] [address]Dr. Garima Pulliam PROF 14(COMP METB)on 022 Albumin [Mass/Vol] 3.8 g/dL Normal 3.4-5.0 [facility] Comment on above: Performed By: #### C MP, BNP, CMADM ####[facility] Nxznnzdlbi3104 [place] [address]Dr. Garima Pulliam Albumin/Globulin [Mass ratio] 1.5 {ratio} Normal [facility] Comment on above: Performed By: #### C MP, BNP, CMADM ####[facility] Blxuagwqzu7975 [place] [address]Dr. Garima Pulliam ALP [Catalytic activity/Vol] 62 U/L Normal 46-116 [facility] Comment on above: Performed By: #### C MP, BNP, CMADM ####[facility] Pxemumdvvm8666 [place] [address]Dr. Garima Pulliam ALT [Catalytic activity/Vol] 37 U/L Normal 16-63 [facility] Comment on above: Performed By: #### C MP, BNP, CMADM ####[facility] Ytkqrrlpka2700 [place] [address]Dr. Garima Pulliam Anion gap [Moles/Vol] 8.0 mmol/L Normal [facility] Comment on above: Performed By: #### C MP, BNP, CMADM ####[facility] Bjxaopoynw8619 [place] [address]Dr. Garima Pulliam AST [Catalytic activity/Vol] 20 U/L Normal 15-37 [facility] Comment on above: Performed By: #### C MP, BNP, CMADM ####[facility] Zvagtiakrq7801 [place] [address]Dr. Garima Pulliam Bilirubin [Mass/Vol] 0.6 mg/dL Normal 0.2-1.0 [facility] Comment on above: Performed By: #### C MP, BNP, CMADM ####[facility] Gvlpzrouxl2517 [place] [address]Dr. Garima Pulliam Calcium [Mass/Vol] 9.1 mg/dL Normal 8.5-10.1 [facility] Comment on above: Performed By: #### C MP, BNP, CMADM ####[facility] [address]wvzwemqaq[address] [place], [place] [address]Dr. Garima Pulliam Chloride [Moles/Vol] 103 mmol/L Normal 98-107 [facility] Comment on above: Performed By: #### C MP, BNP, CMADM ####[facility] Zmbdyweoob[address] [place], [place] [address]Dr. Garima Pulliam CO2 [Moles/Vol] 31.8 mmol/L Normal 21.0-32.0 [facility] Comment on above: Performed By: #### C MP, BNP, CMADM ####[facility] Ebnemvkbsb[address] [place], [place] [address]Dr. Garima Pulliam Creatinine [Mass/Vol] 0.63 mg/dL Critically low 0.70-1.30 [facility] Comment on above: Performed By: #### C MP, BNP, CMADM ####[facility] [address]aimespjon[address] [place], [place] [address]Dr. Garima Pulliam EGFR-AF [facility] LUCIAN >60 Normal >=60 [facility] Comment on above: Performed By: #### C MP, BNP, CMADM ####[facility] Dtedglkcuy[address] [place], [place] [address]Dr. Yilan Pulliam EGFR-NON AF [facility] LUCIAN >60 Normal >=60 [facility] Comment on above: Performed By: #### C MP, BNP, CMADM ####[facility] Jxdmsmpsyv2385 [place] [address]Dr. Garima Pulliam Globulin (S) [Mass/Vol] 2.6 g/dL Normal [facility] Comment on above: Performed By: #### C MP, BNP, CMADM ####[facility] Sniaqgbidh6956 [place] [address]Dr. Garima Pulliam Glucose [Mass/Vol] 103 mg/dL Normal 74-106 [facility] Comment on above: Performed By: #### C MP, BNP, CMADM ####[facility] Azlpqnszkj0678 [place] [address]Dr. Garima Pulliam Potassium [Moles/Vol] 3.8 mmol/L Normal 3.5-5.1 [facility] Comment on above: Performed By: #### C MP, BNP, CMADM ####[facility] Juaraswygg8258 [place] [address]Dr. Garima Pulliam Protein [Mass/Vol] 6.4 g/dL Normal 6.4-8.2 [facility] Comment on above: Performed By: #### C MP, BNP, CMADM ####[facility] Pubgtyhwep4452 [place] [address]Dr. Garima Pulliam Sodium [Moles/Vol] 139 mmol/L Normal 136-145 [facility] Comment on above: Performed By: #### C MP, BNP, CMADM ####[facility] Hozcyifxkm0624 [place] [address]Dr. Garima Pulliam Urea nitrogen [Mass/Vol] 7.0 mg/dL Normal 7.0-18.0 [facility] Comment on above: Performed By: #### C MP, BNP, CMADM ####[facility] Gcnqrdsvza9049 [place] [address]Dr. Garima Pulliam Urea nitrogen/Creatinine [Mass ratio] 11.1 mg/mg Normal [facility] Comment on above: Performed By: #### C MP, BNP, CMADM ####[facility] Vcoifmvyli4374 [place] [address]Dr. Garima Pulliam PROTIMEon 09-29-2022 INR Coag (PPP) [Relative time] 1.14 {INR} Normal [facility] Comment on above: Performed By: #### P T, PTT ####[facility] Ayrnmdhvry24[address] [place] [address]Dr. Garima Pulliam INR GUIDELINES SEE BELOW Normal [facility] Comment on above: Result Comment: [place] RED INR: 2.0 - 3.0 CONDITIONS NOT LISTED BELOW 2.5 - 3.5 FOR PROSTHETIC HEART VALVE REPLACEMENT 2.5 - 3.5 RECURRENT THROMBOSIS Performed By: #### P T, PTT ####[facility] [address]wk[address]fk[address] [place], [place] [address]Dr. Garima Pulliam PT Coag (PPP) [Time] 12.2 s Critically high 9.0-11.6 [facility] Comment on above: Performed By: #### P T, PTT ####[facility] [address]kaydtmp[address] [place], [place] [address]Dr. Garima Pulliam PTTon 09-29-2022 aPTT Coag (Bld) [Time] 29.3 s Normal 22.3-36.2 [facility] Comment on above: Performed By: #### P T, PTT ####[facility] Eedafzbzpb[address] [place], [place] [address]Dr. Garima Pulliam XR CHEST 1 Von 09-29-2022 XR CHEST 1 V Normal [facility] CBC AUTO DIFFon 09-26-2022 BASO # 0.0 103/ul Normal 0.0-0.1 [facility] Comment on above: Performed By: #### C BC ####[facility] Uwvgxwjmcq[address] [place], [place] [address]Dr. Garima Pulliam Basophils/100 WBC (Bld) 0.2 % Normal 0.2-2.0 [facility] Comment on above: Performed By: #### C BC ####[facility] Mqpqwvsdpc39[address] [place], [place] [address]Dr. Garima Pulliam EO # 0.1 103/ul Normal 0.0-0.7 [facility] Comment on above: Performed By: #### C BC ####[facility] Kozdprcvfo[address] [place] [address]Dr. Garima Pulliam Eosinophils/100 WBC (Bld) 1.0 % Normal 0.9-7.0 [facility] Comment on above: Performed By: #### C BC ####[facility] Tmrelslqqq[address] [place], [place] [address]Dr. Garima Pulliam Erythrocyte distribution width (RBC) [Ratio] 13.4 % Normal 11.0-15.0 [facility] Comment on above: Performed By: #### C BC ####[facility] Urdkwbxval220[address] [place], [place] [address]Dr. Garima Pulliam Hematocrit (Bld) [Volume fraction] 46.3 % Normal 42.0-54.0 [facility] Comment on above: Performed By: #### C BC ####[facility] Vahlpdqkon357[address] [place], [place] [address]Dr. Garima Pulliam Hemoglobin (Bld) [Mass/Vol] 15.3 g/dL Normal 14.0-18.0 [facility] Comment on above: Performed By: #### C BC ####[facility] Yuhpxugbcu639[address] [place], [place] [address]Dr. Garima Pulliam IG # 0.05 10e3/ul Critically high 0.00-0.03 [facility] Comment on above: Performed By: #### C BC ####[facility] Aubdnuixge988[address] [place], [place] [address]Dr. Garima Pulliam IG % 0.4 % Normal 0.0-0.5 [facility] Comment on above: Performed By: #### C BC ####[facility] Fpgoaxhzsj[address] [place], [place] [address]DrAdalberto Garima Heraclio LYMPH # 1.7 103/ul Normal 1.2-3.8 [facility] Comment on above: Performed By: #### C BC ####[facility] Veexzryglr546[address] [place], [place] [address]Dr. Garima Heraclio Lymphocytes/100 WBC (Bld) 12.7 % Critically low 20.5-60.0 [facility] Comment on above: Performed By: #### C BC ####[facility] Qpsxzryffo7140 [place] [address]DrAdalberto Pulliam MANUAL DIFF REQ NO Normal [facility] Comment on above: Performed By: #### C BC ####[facility] Xionntngzc6432 [place] [address]Dr. Garima Pulliam MCH (RBC) [Entitic mass] 30.1 pg Normal 25.9-34.0 [facility] Comment on above: Performed By: #### C BC ####[facility] Cjxmyugylp128[address] [place], [place] [address]Dr. Gairma Pulliam MCHC (RBC) [Mass/Vol] 33.0 g/dL Normal 29.9-35.2 [facility] Comment on above: Performed By: #### C BC ####[facility] Pcotnasprc3524[address] [place], [place] [address]DrAdalberto Pulliam MCV (RBC) [Entitic vol] 91.1 fL Normal 80.0-94.0 [facility] Comment on above: Performed By: #### C BC ####[facility] Khmxfcssxz747[address] [place], [place] [address]DrAdalberto Pulliam MONO # 0.9 103/ul Critically high 0.3-0.8 [facility] Comment on above: Performed By: #### C BC ####[facility] Iaphlgpagl508[address] [place], [place] [address]DrAdalberto Pulliam Monocytes/100 WBC (Bld) 7.0 % Normal 1.7-12.0 [facility] Comment on above: Performed By: #### C BC ####[facility] Wdhpubkwfb1816[address] [place], [place] [address]DrAdalberto Pulliam NEUT # 10.4 103/ul Critically high 1.4-6.5 [facility] Comment on above: Performed By: #### C BC ####[facility] Htfnjpyfdg35450[address] [place], [place] [address]DrAdalberto Pulliam Neutrophils/100 WBC (Bld) 78.7 % Critically high 43.0-75.0 [facility] Comment on above: Performed By: #### C BC ####[facility] Hmfkwukwbi2035 [place] [address]DrAdalberto Pulliam Platelet mean volume (Bld) [Entitic vol] 8.9 fL Critically low 9.5-13.5 [facility] Comment on above: Performed By: #### C BC ####[facility] Kxqsjsrwdj6383 [place] [address]Dr. Garima Pulliam PLT 195 103/ul Normal 150-450 [facility] Comment on above: Performed By: #### C BC ####[facility] Gomgvcqvrn049[address] [place], [place] [address]Dr. Garima Pulliam RBC 5.08 106/ul Normal 4.70-6.10 [facility] Comment on above: Performed By: #### C BC ####[facility] Zwdqlmilbi7180 [place] [address]DrAdalberto Pulliam WBC 13.2 103/ul Critically high 4.0-11.0 [facility] Comment on above: Performed By: #### C BC ####[facility] Jvoxnxkogn327[address] [place], [place] [address]DrAdalberto Pulliam PROF 14(COMP METB)on 022 Albumin [Mass/Vol] 3.5 g/dL Normal 3.4-5.0 [facility] Comment on above: Performed By: #### C DAVID HSTROPN ####[facility] Eoubpqnmhb4698 [place] [address]DrAdalberto Pulliam Albumin/Globulin [Mass ratio] 1.2 {ratio} Normal [facility] Comment on above: Performed By: #### C RAFAT HERNANDEZTROPN ####[facility] Idwozdzkjp3289 [place] [address]DrAdalberto Pulliam ALP [Catalytic activity/Vol] 71 U/L Normal 46-116 [facility] Comment on above: Performed By: #### C RAFAT HERNANDEZTROPN ####[facility] Szjgpjodso[address] [place], [place] [address]Dr. Garima Pulliam ALT [Catalytic activity/Vol] 37 U/L Normal 16-63 [facility] Comment on above: Performed By: #### C DAVID, HSTROPN ####[facility] Ftrfvllrvj2892 [place] [address]Dr. Garima Pulliam Anion gap [Moles/Vol] 4.8 mmol/L Normal [facility] Comment on above: Performed By: #### C DAVID, HSTROPN ####[facility] Yqlgfwltyx4059 [place] [address]Dr. Garima Pulliam AST [Catalytic activity/Vol] 21 U/L Normal 15-37 [facility] Comment on above: Performed By: #### C DAVID, HSTROPN ####[facility] Zigqvmgrnz6871 [place] [address]Dr. Garima Pulliam Bilirubin [Mass/Vol] 0.3 mg/dL Normal 0.2-1.0 [facility] Comment on above: Performed By: #### C DAVID, HSTROPN ####[facility] Nvohtzhymf7[address] [place], [place] [address]Dr. Garima Pulliam Calcium [Mass/Vol] 8.9 mg/dL Normal 8.5-10.1 [facility] Comment on above: Performed By: #### C DAVID, HSTROPN ####[facility] Pekdnedzrx8[address] [place] [address]Dr. Garima Pulliam Chloride [Moles/Vol] 106 mmol/L Normal 98-107 [facility] Comment on above: Performed By: #### C DAVID, HSTROPN ####[facility] Heqkrdaghp0887 [place] [address]Dr. Garima Pulliam CO2 [Moles/Vol] 29.8 mmol/L Normal 21.0-32.0 [facility] Comment on above: Performed By: #### C DAVID, HSTROPN ####[facility] Jdaukjdsza6769 [place] [address]Dr. Garima Pulliam Creatinine [Mass/Vol] 0.68 mg/dL Critically low 0.70-1.30 [facility] Comment on above: Performed By: #### C MP, HSTROPN ####[facility] Eyqkwwkiyf5335 [place] [address]Dr. Chapislan Pulliam EGFR-AF [facility]CIAN >60 Normal >=60 [facility] Comment on above: Performed By: #### C MP, HSTROPN ####[facility] [address]juvc[address] [place] [id number]. Yirenu Pulliam EGFR-NON AF [facility] LUCI[facility] >60 Normal >=60 [facility] Comment on above: Performed By: #### C MP, HSTROPN ####[facility] Bpwhvdomzc0585 [place] [address]Dr. Garima Pulliam Globulin (S) [Mass/Vol] 2.8 g/dL Normal [facility] Comment on above: Performed By: #### C MP, HSTROPN ####[facility] Xjfdzocfvb1488 [place] [address]Dr. Chapisrenu Pulliam Glucose [Mass/Vol] 133 mg/dL Critically high 74-106 [facility] Comment on above: Performed By: #### C MP, HSTROPN ####[facility] Idygtrqohg9725 [place] [address]Dr. Chapisrenu Pulliam Potassium [Moles/Vol] 3.6 mmol/L Normal 3.5-5.1 [facility] Comment on above: Performed By: #### C MP, HSTROPN ####[facility] Nruhgopehq0752 [place] [address]Dr. Chapislan Pulliam Protein [Mass/Vol] 6.3 g/dL Critically low 6.4-8.2 [facility] Comment on above: Performed By: #### C MP, HSTROPN ####[facility] Jtcrpzvtcg3140 [place] [address]Dr. Garima Pulliam Sodium [Moles/Vol] 137 mmol/L Normal 136-145 [facility] Comment on above: Performed By: #### C MP, HSTROPN ####[facility] Rzhkmuitrj9537 [place] [address]Dr. Yilan Pulliam Urea nitrogen [Mass/Vol] 15.0 mg/dL Normal 7.0-18.0 [facility] Comment on above: Performed By: #### C DAVID HSTROPN ####[facility] Twkqwnivka8617 [place] [address]Dr. Chapisrenu Pulliam Urea nitrogen/Creatinine [Mass ratio] 22.1 mg/mg Normal [facility] Comment on above: Performed By: #### C DAVID HSTROPN ####[facility] Sgsuhvzdzq0720 [place] [address]Dr. Chapisrenu Pulliam TROPONIN, HIGH SENSITIVITYon 09-26-2022 HSTROP 12.8 pg/mL Normal 4.0-76.1 [facility] Comment on above: Result Comment: CUT- OFF POINTS HAVE BEEN ESTABLISHED BASED ON THE FOURTH UNIVERSAL DEFINITIONS OF MYOCARDIALINFARCTION. THE UPPER REFERENCE LIMIT (URL) OF TROPONIN, DEFINED THE 99TH PERCENTILE OFcTnI DISTRIBUTION IN A REFERENCE POPULATION, HAS BEEN CONFIRMED THE DECISION THRESHOLDFOR SC DIAGNOSIS. Performed By: #### C DAVID HSTROPN ####[facility] Iutwfjinkb[address] [place], [place] [address]Dr. Chapisrenu Pulliam XR CHEST 1 Von 09-26-2022 XR CHEST 1 V Normal [facility] XR CHEST 1 Von 09-16-2022 XR CHEST 1 V Normal [facility] CBC AUTO DIFFon 09-15-2022 BASO # 0.0 103/ul Normal 0.0-0.1 [facility] Comment on above: Performed By: #### C BC ####[facility] Dmirbbfhnf5203 [place] [address]Dr. Chapisrenu Pulliam Basophils/100 WBC (Bld) 0.1 % Critically low 0.2-2.0 [facility] Comment on above: Performed By: #### C BC ####[facility] Svurfbwxnf1896 [place] [address]Dr. Garima Pulliam EO # 0.0 103/ul Normal 0.0-0.7 [facility] Comment on above: Performed By: #### C BC ####[facility] Kzbzjbjxet7787 [place] [address]Dr. Garima Pulliam Eosinophils/100 WBC (Bld) 0.1 % Critically low 0.9-7.0 [facility] Comment on above: Performed By: #### C BC ####[facility] Zcaemuhosl5269 [place] [address]Dr. Garima Pulliam Erythrocyte distribution width (RBC) [Ratio] 14.1 % Normal 11.0-15.0 [facility] Comment on above: Performed By: #### C BC ####[facility] Tgtcagnygx40[address] [place], [place] [address]Dr. Garima Pulliam Hematocrit (Bld) [Volume fraction] 46.1 % Normal 42.0-54.0 [facility] Comment on above: Performed By: #### C BC ####[facility] Ahnvaxgmpo54[address] [place], [place] [address]Dr. Garima Pulliam Hemoglobin (Bld) [Mass/Vol] 15.0 g/dL Normal 14.0-18.0 [facility] Comment on above: Performed By: #### C BC ####[facility] Rkfmcdzess9[address] [place], [place] [address]Dr. Garima Pulliam IG # 0.03 10e3/ul Normal 0.00-0.03 [facility] Comment on above: Performed By: #### C BC ####[facility] Izjwtgdbfw38340[address] [place], [place] [address]Dr. Garima Pulliam IG % 0.3 % Normal 0.0-0.5 [facility] Comment on above: Performed By: #### C BC ####[facility] Wckhqckmyh2924 [place] [address]Dr. Garima Pulliam LYMPH # 0.6 103/ul Critically low 1.2-3.8 [facility] Comment on above: Performed By: #### C BC ####[facility] Wfvhzeiyrp520[address] [place], [place] [address]Dr. Garima Pulliam Lymphocytes/100 WBC (Bld) 5.8 % Critically low 20.5-60.0 [facility] Comment on above: Performed By: #### C BC ####[facility] Fhrtbiwsqy2708 [place] [address]Dr. Garima Pulliam MANUAL DIFF REQ NO Normal [facility] Comment on above: Performed By: #### C BC ####[facility] Vlwxkgihey7395 [place] [address]Dr. Garima Pulliam MCH (RBC) [Entitic mass] 30.2 pg Normal 25.9-34.0 [facility] Comment on above: Performed By: #### C BC ####[facility] Jetzwqawin0528 [place] [address]Dr. Garima Pulliam MCHC (RBC) [Mass/Vol] 32.5 g/dL Normal 29.9-35.2 [facility] Comment on above: Performed By: #### C BC ####[facility] Wmwdnsshpp[address] [place], [place] [address]Dr. Garima Heraclio MCV (RBC) [Entitic vol] 92.8 fL Normal 80.0-94.0 [facility] Comment on above: Performed By: #### C BC ####[facility] Jgdemgcefx816[address] [place], [place] [address]Dr. Garima Heraclio MONO # 0.3 103/ul Normal 0.3-0.8 [facility] Comment on above: Performed By: #### C BC ####[facility] Tjtzrhshhg4787 [place] [address]Dr. Chapisrenu Pulliam Monocytes/100 WBC (Bld) 3.2 % Normal 1.7-12.0 [facility] Comment on above: Performed By: #### C BC ####[facility] Kcptckmsvp8021 [place] [address]Dr. Chapisrenu Pulliam NEUT # 9.8 103/ul Critically high 1.4-6.5 [facility] Comment on above: Performed By: #### C BC ####[facility] Hybvwsorsk[address] [place], [place] [address]Dr. Garima Heraclio Neutrophils/100 WBC (Bld) 90.5 % Critically high 43.0-75.0 [facility] Comment on above: Performed By: #### C BC ####[facility] Pxlnncuydk1189 [place] [address]Dr. Garima Pulliam Platelet mean volume (Bld) [Entitic vol] 9.4 fL Critically low 9.5-13.5 [facility] Comment on above: Performed By: #### C BC ####[facility] Rtcitoupiw2127 [place] [address]Dr. Garima Pulliam PLT 208 103/ul Normal 150-450 [facility] Comment on above: Performed By: #### C BC ####[facility] Tjhbdjfvlt5762 [place] [address]Dr. Garima Pulliam RBC 4.97 106/ul Normal 4.70-6.10 [facility] Comment on above: Performed By: #### C BC ####[facility] Kidiwztjbu084[address] [place], [place] [address]Dr. Garima Pulliam WBC 10.8 103/ul Normal 4.0-11.0 [facility] Comment on above: Performed By: #### C BC ####[facility] Cwrdahodwu435[address] [place], [place] [address]Dr. Garima Pulliam PROF 14(COMP METB)on 022 Albumin [Mass/Vol] 4.0 g/dL Normal 3.4-5.0 [facility] Comment on above: Performed By: #### C MP ####[facility] Prphpimzpv[address] [place], [place] [address]Dr. Garima Pulliam Albumin/Globulin [Mass ratio] 1.5 {ratio} Normal [facility] Comment on above: Performed By: #### C MP ####[facility] Zwwnxllcbe6950 [place] [address]Dr. Garima Pulliam ALP [Catalytic activity/Vol] 73 U/L Normal 46-116 [facility] Comment on above: Performed By: #### C MP ####[facility] Cjpubvtueo775[address] [place], [place] [address]Dr. Garima Pulliam ALT [Catalytic activity/Vol] 42 U/L Normal 16-63 [facility] Comment on above: Performed By: #### C MP ####[facility] Mqyfqobljd238[address] [place], [place] [address]Dr. Garima Pulliam Anion gap [Moles/Vol] 9.1 mmol/L Normal [facility] Comment on above: Performed By: #### C MP ####[facility] Tngbahffkk406[address] [place], [place] [address]Dr. Garima Pulliam AST [Catalytic activity/Vol] 28 U/L Normal 15-37 [facility] Comment on above: Performed By: #### C MP ####[facility] Mncruaxzwm09260[address] [place], [place] [address]Dr. Garima Pulliam Bilirubin [Mass/Vol] 0.6 mg/dL Normal 0.2-1.0 [facility] Comment on above: Performed By: #### C MP ####[facility] Ytwkxrwqst101[address] [place], [place] [address]Dr. Garima Pulliam Calcium [Mass/Vol] 8.6 mg/dL Normal 8.5-10.1 [facility] Comment on above: Performed By: #### C MP ####[facility] Foomedvsjm[address] [place], [place] [address]Dr. Garima Pulliam Chloride [Moles/Vol] 105 mmol/L Normal 98-107 [facility] Comment on above: Performed By: #### C MP ####[facility] Nuofotbqyy063[address] [place], [place] [address]Dr. Garima Pulliam CO2 [Moles/Vol] 28.5 mmol/L Normal 21.0-32.0 [facility] Comment on above: Performed By: #### C MP ####[facility] Rwwczycfjf116[address] [place], [place] [address]Dr. Garima Pulliam Creatinine [Mass/Vol] 0.78 mg/dL Normal 0.70-1.30 [facility] Comment on above: Performed By: #### C MP ####[facility] Xnukhfburk39[address] [place], [place] [address]Dr. Garima Heraclio EGFR-AF [facility] >60 Normal >=60 [facility] Comment on above: Performed By: #### C MP ####[facility] Qbkoyqlzhb5569[address] [place], [place] [address]Dr. Garima Heraclio EGFR-NON AF [facility] >60 Normal >=60 [facility] Comment on above: Performed By: #### C MP ####[facility] Ebjzaagilt5842 [place] [address]Dr. Garima Pulliam Globulin (S) [Mass/Vol] 2.7 g/dL Normal [facility] Comment on above: Performed By: #### C MP ####[facility] Pxjkrzdlfb0522 [place] [address]Dr. Garima Pulliam Glucose [Mass/Vol] 220 mg/dL Critically high 74-106 [facility] Comment on above: Performed By: #### C MP ####[facility] Ivycjbrijo5190 [place] [address]Dr. Garima Pulliam Potassium [Moles/Vol] 3.6 mmol/L Normal 3.5-5.1 [facility] Comment on above: Performed By: #### C MP ####[facility] Eulkikhfrb5743 [place] [address]Dr. Garima Pulliam Protein [Mass/Vol] 6.7 g/dL Normal 6.4-8.2 [facility] Comment on above: Performed By: #### C MP ####[facility] Ynhfshzwug[address] [place], [place] [address]Dr. Garima Pulliam Sodium [Moles/Vol] 139 mmol/L Normal 136-145 [facility] Comment on above: Performed By: #### C MP ####[facility] Rfexyhotrc0321 [place] [address]Dr. Garima Pulliam Urea nitrogen [Mass/Vol] 11.0 mg/dL Normal 7.0-18.0 [facility] Comment on above: Performed By: #### C MP ####[facility] Hmsohgkjkp1728 [place] [address]Dr. Garima Heraclio Urea nitrogen/Creatinine [Mass ratio] 14.1 mg/mg Normal [facility] Comment on above: Performed By: #### C MP ####[facility] Stpwscmqzd2727 [place] [address]Dr. Garima Pulliam CARDIAC NASH 3-6on 2 CK [Catalytic activity/Vol] 240 U/L Normal 39-308 [facility] Comment on above: Performed By: #### C MREP ####[facility] Bkpcoegtic1251 [place] [address]Dr. Garima Pulliam CK.MB [Mass/Vol] 10.38 ng/mL Critically high <=3.60 [facility] Comment on above: Performed By: #### C MREP ####[facility] Tfmkvzllkh2823 [place] [address]Dr. Garima Pulliam HSTROP 18.5 pg/mL Normal 4.0-76.1 [facility] Comment on above: Result Comment: CUT- OFF POINTS HAVE BEEN ESTABLISHED BASED ON THE FOURTH UNIVERSAL DEFINITIONS OF MYOCARDIALINFARCTION. THE UPPER REFERENCE LIMIT (URL) OF TROPONIN, DEFINED THE 99TH PERCENTILE OFcTnI DISTRIBUTION IN A REFERENCE POPULATION, HAS BEEN CONFIRMED THE DECISION THRESHOLDFOR SC DIAGNOSIS. Performed By: #### C MREP ####[facility] Ugtawjtlui1526 [place] [address]Dr. Garima Pulliam CK [Catalytic activity/Vol] 257 U/L Normal 39-308 [facility] Comment on above: Performed By: #### C MREP ####[facility] Pueijjeins[address] [place], [place] [address]Dr. Garima Pulliam CK.MB [Mass/Vol] 9.89 ng/mL Critically high <=3.60 [facility] Comment on above: Performed By: #### C MREP ####[facility] Rvpwvkjula[address]19[address] [place], [place] [address]Dr. Garima Pulliam HSTROP 16.9 pg/mL Normal 4.0-76.1 [facility] Comment on above: Result Comment: CUT- OFF POINTS HAVE BEEN ESTABLISHED BASED ON THE FOURTH UNIVERSAL DEFINITIONS OF MYOCARDIALINFARCTION. THE UPPER REFERENCE LIMIT (URL) OF TROPONIN, DEFINED THE 99TH PERCENTILE OFcTnI DISTRIBUTION IN A REFERENCE POPULATION, HAS BEEN CONFIRMED THE DECISION THRESHOLDFOR SC DIAGNOSIS. Performed By: #### C MREP ####[facility] Vwvjugatdp[address] [place], [place] [address]Dr. Garima Pulliam CBC AUTO DIFFon 09-13-2022 BASO # 0.0 103/ul Normal 0.0-0.1 [facility] Comment on above: Performed By: #### C BC ####[facility] Hzprsjolum[address] [place], [place] [address]Dr. Garima Pulliam Basophils/100 WBC (Bld) 0.1 % Critically low 0.2-2.0 [facility] Comment on above: Performed By: #### C BC ####[facility] Rrspcxlsrn69[address] [place], [place] [address]Dr. Garima Pulliam EO # 0.0 103/ul Normal 0.0-0.7 [facility] Comment on above: Performed By: #### C BC ####[facility] Readsqgqlk775[address] [place], [place] [address]Dr. Chapisrenu Heraclio Eosinophils/100 WBC (Bld) 0.0 % Critically low 0.9-7.0 [facility] Comment on above: Performed By: #### C BC ####[facility] Siywcotrda[address] [place], [place] [address]Dr. Garima Pulliam Erythrocyte distribution width (RBC) [Ratio] 13.6 % Normal 11.0-15.0 [facility] Comment on above: Performed By: #### C BC ####[facility] Htqcfranap[address] [place], [place] [address]Dr. Garima Pulliam Hematocrit (Bld) [Volume fraction] 48.2 % Normal 42.0-54.0 [facility] Comment on above: Performed By: #### C BC ####[facility] Achgxqxahi[address] [place], [place] [address]Dr. Garima Pulliam Hemoglobin (Bld) [Mass/Vol] 16.0 g/dL Normal 14.0-18.0 [facility] Comment on above: Performed By: #### C BC ####[facility] Nufnslfcjy99[address] [place], [place] [address]Dr. Garima Pulliam IG # 0.02 10e3/ul Normal 0.00-0.03 [facility] Comment on above: Performed By: #### C BC ####[facility] Qyrbqpsbil6021 [place] [address]Dr. Chapisrenu Pulliam IG % 0.3 % Normal 0.0-0.5 [facility] Comment on above: Performed By: #### C BC ####[facility] Ctkupgbmdx7527 [place] [address]Dr. Chapisrenu Heraclio LYMPH # 0.5 103/ul Critically low 1.2-3.8 [facility] Comment on above: Performed By: #### C BC ####[facility] Dhxayvnwek1393 [place] [address]Dr. Chapisrenu Pulliam Lymphocytes/100 WBC (Bld) 7.7 % Critically low 20.5-60.0 [facility] Comment on above: Performed By: #### C BC ####[facility] Rnvcplygfv0052 [place] [address]Dr. Garima Pulliam MANUAL DIFF REQ NO Normal [facility] Comment on above: Performed By: #### C BC ####[facility] [facility] [address] [place] [address]Dr. Garima Heraclio MCH (RBC) [Entitic mass] 30.6 pg Normal 25.9-34.0 [facility] Comment on above: Performed By: #### C BC ####[facility] [address] [place], [place] [address]Dr. Garima Heraclio MCHC (RBC) [Mass/Vol] 33.2 g/dL Normal 29.9-35.2 [facility] Comment on above: Performed By: #### C BC ####[facility] [address] [place] [address]Dr. Chapisrenu Pulliam MCV (RBC) [Entitic vol] 92.2 fL Normal 80.0-94.0 [facility] Comment on above: Performed By: #### C BC ####[facility] [address] [place], [place] [address]Dr. Garima Pulliam MONO # 0.0 103/ul Critically low 0.3-0.8 [facility] Comment on above: Performed By: #### C BC ####[facility] [address] [place], [place] [address]Dr. Garima Pulliam Monocytes/100 WBC (Bld) 0.4 % Critically low 1.7-12.0 [facility] Comment on above: Performed By: #### C BC ####[facility] [address] [place] [address]Dr. Garima Pulliam NEUT # 6.2 103/ul Normal 1.4-6.5 [facility] Comment on above: Performed By: #### C BC ####[facility] [address] [place] [address]Dr. Garima Pulliam Neutrophils/100 WBC (Bld) 91.5 % Critically high 43.0-75.0 [facility] Comment on above: Performed By: #### C BC ####[facility] [address] [place] [address]Dr. Garima Pulliam Platelet mean volume (Bld) [Entitic vol] 8.7 fL Critically low 9.5-13.5 [facility] Comment on above: Performed By: #### C BC ####[facility] [address] [place] [address]Dr. Garima Pulliam PLT 179 103/ul Normal 150-450 [facility] Comment on above: Performed By: #### C BC ####[facility] [address] [place] [address]Dr. Garima Pulliam RBC 5.23 106/ul Normal 4.70-6.10 [facility] Comment on above: Performed By: #### C BC ####[facility] [address]asp[address] [place] [address]Dr. Garima Pulliam WBC 6.7 103/ul Normal 4.0-11.0 [facility] Comment on above: Performed By: #### C BC ####[facility] [address] [place] [address]Dr. Garima Pulliam PROF CHEM 8 (BAS METB)on Anion gap [Moles/Vol] 12.1 mmol/L Normal Th [facility] Comment on above: Performed By: #### B MP ####[facility] [address] [place] [address]Dr. Garima Pulliam Calcium [Mass/Vol] 8.7 mg/dL Normal 8.5-10.1 [facility] Comment on above: Performed By: #### B MP ####[facility] [address] [place] [address]Dr. Garima Pulliam Chloride [Moles/Vol] 105 mmol/L Normal 98-107 [facility] Comment on above: Performed By: #### B MP ####[facility] [address]redzhfc[address] [place] [address]Dr. Garima Pulliam CO2 [Moles/Vol] 25.5 mmol/L Normal 21.0-32.0 [facility] Comment on above: Performed By: #### B MP ####[facility] [address] [place], [place] [address]Dr. Garima Pulliam Creatinine [Mass/Vol] 0.63 mg/dL Critically low 0.70-1.30 [facility] Comment on above: Performed By: #### B MP ####[facility] H[address]wis[address] [place], [place] [address]Dr. Garima Pulliam EGFR-AF [facility] LUCIAN >60 Normal >=60 [facility] Comment on above: Performed By: #### B MP ####[facility] [address]vc[address] [place], [place] [address]Dr. Garima Heraclio EGFR-NON AF [facility] LUCIAN >60 Normal >=60 [facility] Comment on above: Performed By: #### B MP ####[facility] [address]icv[address] [place], [place] [address]Dr. Garima Pulliam Glucose [Mass/Vol] 162 mg/dL Critically high 74-106 [facility] Comment on above: Performed By: #### B MP ####[facility] Xl[address] [place], [place] [address]Dr. Garima Pulliam Potassium [Moles/Vol] 3.6 mmol/L Normal 3.5-5.1 [facility] Comment on above: Performed By: #### B MP ####[facility] [address]fs[address] [place], [place] [address]Dr. Chapisrenu Pulliam Sodium [Moles/Vol] 139 mmol/L Normal 136-145 [facility] Comment on above: Performed By: #### B DAVID ####[facility] [address] [place] [address]Dr. Garima Pulliam Urea nitrogen [Mass/Vol] 9.0 mg/dL Normal 7.0-18.0 [facility] Comment on above: Performed By: #### B DAVID ####[facility] [address]ew[address] [place] [address]Dr. Chapisrenu Pulliam Urea nitrogen/Creatinine [Mass ratio] 14.3 mg/mg Normal [facility] Comment on above: Performed By: #### B DAVID ####[facility] [address] [place] [address]Dr. Chapisrenu Pulliam CARDIAC NASH ADMITon 022 CK [Catalytic activity/Vol] 304 U/L Normal 39-308 [facility] Comment on above: Performed By: #### B NANCY HERNANDEZ ####[facility] [address]fns[address] [place] [address]Dr. Chapisrenu Pulliam CK.MB [Mass/Vol] 11.81 ng/mL Critically high <=3.60 Th [facility] Comment on above: Performed By: #### B NANCY HERNANDEZ ####[facility] [address] [place] [address]Dr. Garima Heraclio HSTROP 13.3 pg/mL Normal 4.0-76.1 [facility] Comment on above: Result Comment: CUT- OFF POINTS HAVE BEEN ESTABLISHED BASED ON THE FOURTH UNIVERSAL DEFINITIONS OF MYOCARDIALINFARCTION. THE UPPER REFERENCE LIMIT (URL) OF TROPONIN, DEFINED THE 99TH PERCENTILE OFcTnI DISTRIBUTION IN A REFERENCE POPULATION, HAS BEEN CONFIRMED THE DECISION THRESHOLDFOR SC DIAGNOSIS. Performed By: #### NANCY Larkin MP ####[facility] [address] [place] [address]Dr. Garima Pulliam DORIS 133 ng/mL Critically high 16-96 [facility] Comment on above: Performed By: #### NANCY Larkin MP ####[facility] [address] [place] [address]Dr. Garima Pulliam CBC AUTO DIFFon 09-12-2022 BASO # 0.0 103/ul Normal 0.0-0.1 [facility] Comment on above: Performed By: #### C BC ####[facility] [address] [place] [id number]. Garima Pulliam Basophils/100 WBC (Bld) 0.2 % Normal 0.2-2.0 [facility] Comment on above: Performed By: #### C BC ####[facility] [address] [place] [address]Dr. Garima Heraclio EO # 0.2 103/ul Normal 0.0-0.7 [facility] Comment on above: Performed By: #### C BC ####[facility] [address]xd[address] [place] [address]Dr. Garima Heraclio Eosinophils/100 WBC (Bld) 1.3 % Normal 0.9-7.0 [facility] Comment on above: Performed By: #### C BC ####[facility] [address] [place] [address]Dr. Garima Pulliam Erythrocyte distribution width (RBC) [Ratio] 13.7 % Normal 11.0-15.0 [facility] Comment on above: Performed By: #### C BC ####[facility] Qpodfumcyg[address] [place] [address]Dr. Garima Pulliam Hematocrit (Bld) [Volume fraction] 46.4 % Normal 42.0-54.0 [facility] Comment on above: Performed By: #### C BC ####[facility] [address] [place] [id number]. Garima Pulliam Hemoglobin (Bld) [Mass/Vol] 15.7 g/dL Normal 14.0-18.0 [facility] Comment on above: Performed By: #### C BC ####[facility] Evf[address] [place] [address]Dr. Garima Heraclio IG # 0.04 10e3/ul Critically high 0.00-0.03 [facility] Comment on above: Performed By: #### C BC ####[facility] [address] [place] [address]Dr. Garima Pulliam IG % 0.3 % Normal 0.0-0.5 [facility] Comment on above: Performed By: #### C BC ####[facility] [address] [place], [place] [address]Pj. Garima Pulliam LYMPH # 1.7 103/ul Normal 1.2-3.8 [facility] Comment on above: Performed By: #### C BC ####[facility] [address] [place] [address]Dr. Garima Pulliam Lymphocytes/100 WBC (Bld) 11.5 % Critically low 20.5-60.0 [facility] Comment on above: Performed By: #### C BC ####[facility] [address]idba[address] [place] [address]Dr. Garima Pulliam MANUAL DIFF REQ NO Normal [facility] Comment on above: Performed By: #### C BC ####[facility] [address] [place] [address]Dr. Garima Pulliam MCH (RBC) [Entitic mass] 31.0 pg Normal 25.9-34.0 [facility] Comment on above: Performed By: #### C BC ####[facility] [address]ycox[address]pjh[address] [place] [address]Dr. Garima Pulliam MCHC (RBC) [Mass/Vol] 33.8 g/dL Normal 29.9-35.2 [facility] Comment on above: Performed By: #### C BC ####[facility] [address]eli[address] [place] [address]Dr. Garima Pulliam MCV (RBC) [Entitic vol] 91.7 fL Normal 80.0-94.0 [facility] Comment on above: Performed By: #### C BC ####[facility] Uxs[address]inodv[address] [place] [address]Dr. Garima Pulliam MONO # 0.8 103/ul Normal 0.3-0.8 [facility] Comment on above: Performed By: #### C BC ####[facility] [address]kp[address] [place] [address]Dr. Garima Pulliam Monocytes/100 WBC (Bld) 5.2 % Normal 1.7-12.0 [facility] Comment on above: Performed By: #### C BC ####[facility] [address]npq[address] [place] [address]Dr. Garima Pulliam NEUT # 11.7 103/ul Critically high 1.4-6.5 [facility] Comment on above: Performed By: #### C BC ####[facility] E[address]mebmt[address] [place] [address]Dr. Garima Pulliam Neutrophils/100 WBC (Bld) 81.5 % Critically high 43.0-75.0 [facility] Comment on above: Performed By: #### C BC ####[facility] [address]ok[address]ryv[address] [place] [address]Dr. Garima Pulliam Platelet mean volume (Bld) [Entitic vol] 8.6 fL Critically low 9.5-13.5 [facility] Comment on above: Performed By: #### C BC ####[facility] [address]nx[address]jlzdl[address] [place] [address]Dr. Garima Pulliam PLT 191 103/ul Normal 150-450 [facility] Comment on above: Performed By: #### C BC ####[facility] [address]csqexp6[address] [place] [address]Dr. Garima Pulliam RBC 5.06 106/ul Normal 4.70-6.10 [facility] Comment on above: Performed By: #### C BC ####[facility] [address] [place], [place] [address]Dr. Garima Pulliam WBC 14.4 103/ul Critically high 4.0-11.0 [facility] Comment on above: Performed By: #### C BC ####[facility] [address]te[address]qx[address] [place], [place] [address]Dr. Garima Pulliam Covid-19 PCR (CVDTB)on 08-24 SARS-CoV-2 (COVID-19) RNA MARIE+probe Ql (Unsp spec) Not detected Normal NOT DETECTED [facility] Comment on above: Result Comment: When [...] for this test is supported by the [place] of Health and Human Service's declaration that [...] be used). Performed By: #### C VDTBH ####[facility] T[address]hw[address] [place] [address]Dr. Garima Pulliam LACTATE/LACTIC ACIDon 2021 Lactate [Moles/Vol] 1.0 mmol/L Normal 0.4-1.9 [facility] Comment on above: Performed By: #### L ACT ####[facility] [address] [place], [place] [address]Dr. Garima Pulliam PROF CHEM 8 (BAS METB)on Anion gap [Moles/Vol] 11.6 mmol/L Normal [facility] Comment on above: Performed By: #### NANCY Larkin MP ####[facility] [address] [place] [address]Dr. Garima Pulliam Calcium [Mass/Vol] 9.2 mg/dL Normal 8.5-10.1 [facility] Comment on above: Performed By: #### NANCY Larkin MP ####[facility] [address]okepl[address] [place] [address]Dr. Garima Pulliam Chloride [Moles/Vol] 105 mmol/L Normal 98-107 [facility] Comment on above: Performed By: #### NANCY Larkin MP ####[facility] [address] [place] [address]Dr. Garima Pulliam CO2 [Moles/Vol] 25.9 mmol/L Normal 21.0-32.0 [facility] Comment on above: Performed By: #### B DAVID, NANCY ####[facility] [address]rg[address] [place] [address]Dr. Garima Pulliam Creatinine [Mass/Vol] 0.72 mg/dL Normal 0.70-1.30 [facility] Comment on above: Performed By: #### B DAVID, CMAANA ROSA ####[facility] [address]evr[address] [place] [address]Dr. Garima Pulliam EGFR-AF [facility]CIAN >60 Normal >=60 [facility] Comment on above: Performed By: #### B DAVID, NANCY ####[facility] [address] [place] [address]Dr. Garima Pulliam EGFR-NON AF [facility] >60 Normal >=60 [facility] Comment on above: Performed By: #### B DAVID, NANCY ####[facility] [address] [place] [address]Dr. Garima Pulliam Glucose [Mass/Vol] 111 mg/dL Critically high 74-106 [facility] Comment on above: Performed By: #### B DAVID, NANCY ####[facility] [address]km[address] [place] [address]Dr. Garima Pulliam Potassium [Moles/Vol] 3.5 mmol/L Normal 3.5-5.1 [facility] Comment on above: Performed By: #### B DAVID, NANCY ####[facility] [address]af[address] [place] [address]Dr. Garima Pluliam Sodium [Moles/Vol] 139 mmol/L Normal 136-145 [facility] Comment on above: Performed By: #### B DAVID, NANCY ####[facility] [address]eizo[address] [place] [address]Dr. Garima Pulliam Urea nitrogen [Mass/Vol] 7.0 mg/dL Normal 7.0-18.0 [facility] Comment on above: Performed By: #### B DAVID, NANCY ####[facility] [address] [place], [place] [address]Qt. Garima Pulliam Urea nitrogen/Creatinine [Mass ratio] 9.7 mg/mg Normal [facility] Comment on above: Performed By: #### B DAVID, NANCY ####[facility] [address]ser[address] [place], [place] [address]Yu. Garima Pulliam XR CHEST 1 Von 09-12-2022 XR CHEST 1 V Normal [facility] Encounters Encounter Date Encounter Type Care [...] Facility:[facility] Start: 01-01-2023 End: 01-01-[address] MIALDIS MELARA . Facility:[facility] Start: 12-25-2022 End: 12-26-2022 ambulatory KENTRELL [...] Facility:[facility] Payers Date Payer Category Payer Unknown [id number] 1960 Medicaid [id number] 1960 Unknown [id number] 1960 Unknown [id number] 1954 Unknown [id number] 2.16.84 0.1.315161.3.579.2.593 1954 Unknown [id number] 2.16.84 0.1.818164.3.579.2.593 1954 Unknown [id number] 2.16.84 0.1.640360.3.579.2.593 1954 Unknown [id number] 2.16.84 0.1.734210.3.579.2.593 1954 Unknown [id number] 2.16.84 0.1.213454.3.579.2.593 1954 Unknown [id number] 2.16.84 0.1.794841.3.579.2.593 1954 Unknown [id number] 2.16.84 0.1.419618.3.579.2.593 1954 Unknown [id number] 2.16.84 0.1.989759.3.579.2.593 1954 Unknown [id number] 2.16.84 0.1.899855.3.579.2.593 1954 Unknown [id number] 2.16.84 0.1.385449.3.579.2.593 1954 Unknown [id number] 2.16.84 0.1.686356.3.579.2.593 1954 Unknown [id number] 2.16.84 0.1.071471.3.579.2.593 1954 Unknown [id number] 2.16.84 0.1.851769.3.579.2.593 1954 Unknown [id number] 2.16.84 0.1.629399.3.579.2.593 1954 Unknown [id number] 2.16.84 0.1.268754.3.579.2.593 1954 Unknown [id number] 2.16.84 0.1.388373.3.579.2.593 1954 Unknown [id number] 2.16.84 0.1.575893.3.579.2.593 1954 Unknown [id number] 2.16.84 0.1.744242.3.579.2.593 1954 Unknown [id number] 2.16.84 0.1.329455.3.579.2.593 1954 Unknown [id number] 2.16.84 0.1.365243.3.579.2.593 Summary Purpose Family History No Family History Records Found Advance Directives No Advanced Directives Records Found Additional Source Comments (unrecognized sect ion and content) No Status Records Found INFORMATION SOURCE (unrecogn ized section and content) DATE CREATED AUTHOR 04/08/2023 [facility] FOR RECORDS PERTAINING TO PATIENTS [...] BE BASED ON THE PRIMARY CLINICAL RECORDS. [facility] [email or web address] [facility]. provides no warranty or guarantee of the accuracy or completeness of information in this document.
--- NOTE | 2024-02-13 21:16 | ED.SOB1 ---
HPI - SOB/Dyspnea General Chief Complaint: Shortness of Breath/Dyspnea Stated Complaint: diff breathing Time Seen by Provider: 02/13/24 21:10 Source: patient Mode of arrival: Wheelchair Limitations: no limitations History of Present Illness HPI Narrative: well known to the department. Daily smoker with history of COPD. Presents complaining of shortness of breath. No fever or chest pain MD elicited complaint: shortness of breath Related Data Home Medications ?Medication ?Instructions ?Recorded ?Confirmed omeprazole 20 mg capsule,delayed 20 mg PO DAILY 10/22/23 01/31/24 release albuterol sulfate 2.5 mg/3 mL 2.5 mg inhalation Q6H PRN 11/02/23 01/31/24 (0.083 %) solution for nebulization shortness of breath or wheezing fluticasone 250 mcg-salmeterol 50 1 inh inhalation BID 12/25/23 01/31/24 mcg/dose blistr powdr for inhalation (Wixela Inhub) tiotropium bromide 2.5 2 inh inhalation BID 12/25/23 01/31/24 mcg/actuation mist for inhalation (Spiriva Respimat) Previous Rx's ?Medication ?Instructions ?Recorded albuterol sulfate 90 mcg/actuation 2 inh inhalation Q6H PRN shortness 12/17/23 aerosol inhaler of breath or wheezing #8.5 grams losartan 100 mg tablet 100 mg PO DAILY #30 tabs 12/27/23 metformin 500 mg tablet 500 mg PO BID #60 tabs 01/30/24 prednisone 10 mg tablet See Rx Instructions .Route 01/31/24 .COMPLEX #30 tabs Allergies Allergy/AdvReac Type Severity Reaction Status Date / Time No Known Drug Allergies Allergy Verified 01/31/24 17:24 Review of Systems ROS Status of ROS 10 or more systems reviewed and unremarkable except as noted in history and below [facility] Medical History (Updated 02/13/24 @ 22:19 by Júnior Andrade MD) Hypokalemia ?E87.6 - Hypokalemia (ICD-10) New onset type 2 diabetes mellitus ?E11.9 - Type 2 diabetes mellitus without complications (ICD-10) Lower extremity edema ?R60.0 - Localized edema (ICD-10) Edema ?R60.9 - Edema, unspecified (ICD-10) Acute hyperglycemia ?R73.9 - Hyperglycemia, unspecified (ICD-10) Tobacco abuse ?Z72.0 - Tobacco use (ICD-10) HTN (hypertension) ?I10 - Essential (primary) hypertension (ICD-10) Community acquired pneumonia ?J18.9 - Pneumonia, unspecified organism (ICD-10) Chronic obstructive pulmonary disease ?J44.9 - Chronic obstructive pulmonary disease, unspecified (ICD-10) Acute exacerbation of chronic obstructive pulmonary disease (COPD) ?J44.1 - Chronic obstructive pulmonary disease with (acute) exacerbation (ICD-10) RLL pneumonia ?J18.9 - Pneumonia, unspecified organism (ICD-10) COPD (chronic obstructive pulmonary disease) ?J44.9 - Chronic obstructive pulmonary disease, unspecified (ICD-10) Surgical History (Updated 01/29/24 @ 06:45 by Latonia Martin RN) Hx of tonsillectomy ?Z90.89 - Acquired absence of other organs (ICD-10) Family History (Updated 12/25/23 @ 21:28 by Kym Ordaz) Mother Family history of cancer Family history of hypertension Father Family history of cancer Social History Within the past year, how often did you have a drink containing alcohol: 4 or more times a week Within the past year, how many standard drinks containing alcohol did you have on a typical day: 3 or 4 Within the past year, how often did you have six or more drinks on one occasion: less than monthly Total score: 3 Score interpretation: A score of 4 or more indicates drinking is likely to affect patient's safety. Smoking status: Current every day smoker Non-prescribed substance use: cannabis (any form) Previous occupational history: retired Highest level of school completed/degree received: high school graduate Are you now , , , , never or living with a partner: In a typical week, how many times do you talk on the telephone with family, friends, or neighbors: twice per week How often do you get together with friends or relatives: once per week How often do you attend christian or bahai services: never Do you belong to any clubs or organizations such as christian groups unions, fraternal or athletic groups, or school groups: no Total score: 1 Score interpretation: A score of less than or equal to 1 indicates the most socially isolated. Little interest or pleasure in doing things: several days Feeling down, depressed, or hopeless: not at all Feel stressed/tense/nervous/anxious/difficulty sleeping: not at all Do you think of yourself as: straight/heterosexual Gender Identity: male Exam Constitutional Vital Signs, click to edit/add: Last Vital Signs Temp 98.7 F 02/13/24 20:54 Pulse 71 02/13/24 21:50 Resp 20 02/13/24 21:50 BP 153/90 H 02/13/24 21:01 Pulse Ox 98 02/13/24 21:50 O2 Del Method Room Air 02/13/24 21:50 Common normals: no apparent distress, average body habitus, oriented x3, no limitations, healthy appearing, alert and well nourished HENMT Common normals: normocephalic and head/scalp atraumatic Respiratory Other: diminished breath sounds. No respiratory distress. no wheeze or rhonchi Cardio Common normals: regular rate, regular rhythm, S1 normal heart sound and S2 normal heart sound GI Common normals: Normal to inspection, nondistended, normoactive bowel sounds present and soft to palpation Extremity Common normals: normal to inspection and full ROM Neuro Common normals: oriented x3, CN's II-XII intact bilaterally, moves all extremities and no focal motor deficits Psych Appearance: grossly normal Course Vital Signs Vital signs: Vital Signs Temperature 98.7 F 02/13/24 20:54 Pulse Rate 93 H 02/13/24 20:54 Respiratory Rate 18 02/13/24 20:54 Blood Pressure 180/94 H 02/13/24 20:54 Pulse Oximetry 95 02/13/24 20:54 Oxygen Delivery Method Room Air 02/13/24 20:54 Temperature 98.7 F 02/13/24 20:54 Pulse Rate 71 02/13/24 21:50 Respiratory Rate 20 02/13/24 21:50 Blood Pressure 153/90 H 02/13/24 21:01 Pulse Oximetry 98 02/13/24 21:50 Oxygen Delivery Method Room Air 02/13/24 21:50 MDM - SOB/Dyspnea MDM Narrative Medical decision making narrative: patient well known to ED staff. history of COPD and current daily smoker. Presents complaining of feeling short of breath. On exam he is resting comfortably and watching TV. No distress. Chest with diminished breath sounds. Patient treated with solumedrol and duoneb and after wards states he is feeling better and ready to go. This is his usual presentation. He gets treated and 90% of the time he is ready to go. He has been admitted on rare occasions Lab Data Labs: Lab Results 02/13/24 Range/Units 21:05 WBC 12.1 H (4.0-11.0) 10^3/uL RBC 4.90 (4.70-6.10) 10^6/uL Hgb 14.7 (14.0-18.0) g/dL Hct 45.1 (42.0-54.0) % MCV 92.0 (80.0-94.0) fL MCH 30.0 (25.9-34.0) pg MCHC 32.6 (29.9-35.2) g/dL RDW 13.8 (11.0-15.0) % Plt Count 191 (150-450) 10^3/uL MPV 9.4 L (9.5-13.5) fL Neut % (Auto) 67.9 (43.0-75.0) % Lymph % (Auto) 21.1 (20.5-60.0) % [place] % (Auto) 8.3 (1.7-12.0) % Eos % (Auto) 2.0 (0.9-7.0) % Baso % (Auto) 0.4 (0.2-2.0) % Neut # (Auto) 8.2 H (1.4-6.5) 10^3/uL Lymph # (Auto) 2.6 (1.2-3.8) 10^3/uL [place] # (Auto) 1.0 H (0.3-0.8) 10^3/uL Eos # (Auto) 0.2 (0.0-0.7) 10^3/uL Baso # (Auto) 0.1 (0.0-0.1) 10^3/uL Abs Immat Gran (auto) 0.04 H (0.00-0.03) 10^3/uL Imm/Tot Granulo (auto) 0.3 (0.0-0.5) % Sodium 140 (136-145) mmol/L Potassium 3.6 (3.5-5.1) mmol/L Chloride 103 (98-107) mmol/L Carbon Dioxide 29.5 (21.0-32.0) mmol/L Anion Gap 11.1 BUN 10.0 (7.0-18.0) mg/dL Creatinine 0.65 L (0.70-1.30) mg/dL Est GFR ( Amer) >60 (>=60) Est GFR (Non-Af Amer) >60 (>=60) BUN/Creatinine Ratio 15.4 Glucose 123 H (74-106) mg/dL Calcium 8.3 L (8.5-10.1) mg/dL Troponin I High Sens 15.2 (4.0-76.1) pg/mL Discharge Plan Discharge Stand Alone Forms: Portal Instructions Chief Complaint: Shortness of Breath/Dyspnea Clinical Impression: COPD (chronic obstructive pulmonary disease) Patient Disposition: Home, Self-Care Prescriptions / Home Meds: No Action omeprazole 20 mg capsule,delayed release(DR/EC) 20 mg PO DAILY albuterol sulfate 2.5 mg /3 mL (0.083 %) solution for nebulization 2.5 mg inhalation Q6H PRN (Reason: shortness of breath or wheezing) Spiriva Respimat 2.5 mcg/actuation mist 2 inh inhalation BID fluticasone propion-salmeterol [Wixela Inhub] 250-50 mcg/dose blister with device 1 inh inhalation BID losartan 100 mg tablet 100 mg PO DAILY Qty: 30 11RF metformin 500 mg tablet 500 mg PO BID Qty: 60 0RF prednisone 10 mg tablet See Rx Instructions .ROUTE .COMPLEX Qty: 30 0RF Rx Instructions: 4 by mouth daily for three days then 3 by mouth daily for three days then 2 by mouth daily for three days then 1 by mouth daily for three days albuterol sulfate 90 mcg/actuation HFA aerosol inhaler 2 inh inhalation Q6H PRN (Reason: shortness of breath or wheezing) Qty: 8.5 2RF Print Language: American Instructions: COPD (Chronic Obstructive Pulmonary Disease) (DC) Referrals: Physician,Non-Staff, MD [Primary Care Provider] - 1 week
[2024-02-13 21:30] LABS: Basophils Absolute Auto 0.1 10^3/uL (0.0-0.1); Basophils Percent Auto 0.4 % (0.2-2.0); Eosinophils Absolute Auto 0.2 10^3/uL (0.0-0.7); Hematocrit 45.1 % (42.0-54.0); Hemoglobin 14.7 g/dL (14.0-18.0); Immature Granulocytes Abs Auto 0.04 10^3/uL (0.00-0.03); Immature Granulocytes Pct Auto 0.3 % (0.0-0.5); Lymphocytes Absolute Auto 2.6 10^3/uL (1.2-3.8); Lymphocytes Percent Auto 21.1 % (20.5-60.0); Mean Corpuscular HGB Conc 32.6 g/dL (29.9-35.2); Mean Platelet Volume 9.4 fL (9.5-13.5); Monocytes Percent Auto 8.3 % (1.7-12.0); Neutrophils Absolute Auto 8.2 10^3/uL (1.4-6.5); Neutrophils Percent Auto 67.9 % (43.0-75.0); Platelet Count 191 10^3/uL (150-450); Red Cell Distribution Width 13.8 % (11.0-15.0); White Blood Count 12.1 10^3/uL (4.0-11.0)
[2024-02-13] MEDS: METHYLPREDNISOLONE SOD SUCC PF 125 MG/2 ML VIAL IVP (21:36)
[2024-02-13] MEDS: IPRATROPIUM/ALBUTEROL SULFATE 3 ML AMPUL.NEB IH (21:42)
[2024-02-13 21:43] LABS: Anion Gap 11.1; BUN Creatinine Ratio 15.4; Calcium 8.3 mg/dL (8.5-10.1); Carbon Dioxide 29.5 mmol/L (21.0-32.0); Chloride 103 mmol/L (98-107); Estimated GFR (African America >60 (>=60); Estimated GFR (Non-African Ame >60 (>=60); Glucose 123 mg/dL (74-106); Potassium 3.6 mmol/L (3.5-5.1); Sodium 140 mmol/L (136-145); Troponin I High Sensitivity 15.2 pg/mL (4.0-76.1)
--- NOTE | 2024-02-13 23:17 | ECG_ITS ---
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
== END 2024-02-13 22:29 | disposition home or self-care (01) ==
PROVIDERS: Emergency Provider Internal Medicine
DX: J44.9 Chronic obstructive pulmonary disease, unspecified (principal); F17.210 Nicotine dependence, cigarettes, uncomplicated; I10 Essential (primary) hypertension; E11.9 Type 2 diabetes mellitus without complications; Z87.01 Personal history of pneumonia (recurrent); Z79.899 Other long term (current) drug therapy; Z90.89 Acquired absence of other organs; F12.90 Cannabis use, unspecified, uncomplicated
CPT/HCPCS: 36415; 80048; 84484; 85025; 93005; 94640; 96374; 99285; J2930

== ENCOUNTER 2024-03-01 17:18 | Emergency (ER) | payer MEDICARE, SELFPAY ==
[2024-03-01 17:28] VITALS: BP 172/84; PULSE 80; TEMP 36.5; O2SAT 94; BMI 25.0
--- NOTE | 2024-03-01 17:32 | ECG_ITS ---
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
--- NOTE | 2024-03-01 17:33 | ED_ITS ---
HPI HPI - General Adult General Chief complaint: Shortness of Breath/Dyspnea Stated complaint: Difficulty Breathing Time Seen by Provider: 03/01/24 17:31 Source: patient Mode of arrival: walk-in Limitations: no limitations History of Present Illness HPI narrative: Patient is a 68-year-old male who presents to the emergency department for increasing shortness of breath throughout the day today. Patient is well-known to this emergency department for a longstanding history of COPD, medication noncompliance. He continues to smoke. He states He was here in the emergency department for breathing treatment 4 to 5 days ago. He has had leg swelling. He has no fevers, sputum production, hemoptysis or chest pain. He states he noticed the leg swelling but did not have any money to fill any of his prescriptions, he is not sure if he is prescribed a water pill or not. He is unsure if he took his blood pressure medications today. Related Data Home Medications ?Medication ?Instructions ?Recorded ?Confirmed omeprazole 20 mg capsule,delayed 20 mg PO DAILY 10/22/23 01/31/24 release albuterol sulfate 2.5 mg/3 mL 2.5 mg inhalation Q6H PRN 11/02/23 03/01/24 (0.083 %) solution for nebulization shortness of breath or wheezing fluticasone 250 mcg-salmeterol 50 1 inh inhalation BID 12/25/23 03/01/24 mcg/dose blistr powdr for inhalation (Wixela Inhub) tiotropium bromide 2.5 2 inh inhalation BID 12/25/23 03/01/24 mcg/actuation mist for inhalation (Spiriva Respimat) Previous Rx's ?Medication ?Instructions ?Recorded albuterol sulfate 90 mcg/actuation 2 inh inhalation Q6H PRN shortness 12/17/23 aerosol inhaler of breath or wheezing #8.5 grams losartan 100 mg tablet 100 mg PO DAILY #30 tabs 12/27/23 metformin 500 mg tablet 500 mg PO BID #60 tabs 01/30/24 prednisone 10 mg tablet See Rx Instructions .Route 01/31/24 .COMPLEX #30 tabs albuterol sulfate 2.5 mg/3 mL 2.5 mg (3 mL) inhalation Q6H PRN 03/01/24 (0.083 %) solution for nebulization shortness of breath or wheezing #90 mL albuterol sulfate 90 mcg/actuation 2 inh inhalation Q4H PRN shortness 03/01/24 aerosol inhaler of breath or wheezing #8.5 grams azithromycin 250 mg tablet See Rx Instructions PO .COMPLEX #6 03/01/24 (Zithromax Z-Luis) tabs prednisone 20 mg tablet See Rx Instructions .Route 03/01/24 .COMPLEX #12 tabs Allergies Allergy/AdvReac Type Severity Reaction Status Date / Time No Known Drug Allergies Allergy Verified 01/31/24 17:24 Opioid HPI Opioid Management Most Recent Opioid Data: Last ORT Total Score 0 01/29/24 06:36 Last ORT Risk Category Low Risk 01/29/24 06:36 Review of Systems ROS Constitutional Denies: fever or chills Ears, nose, mouth, and throat Denies: throat pain or nasal congestion Cardiovascular Denies: chest pain Respiratory Reports: shortness of breath, cough and wheezing; Denies: change in phlegm color or coughing up blood Gastrointestinal Denies: nausea or vomiting Musculoskeletal Denies: back pain Integumentary/Breast Denies: rash Hematologic/Lymphatic Denies: easy bruising or easy bleeding [facility] Medical History (Updated 03/01/24 @ 18:38 by PALMIRA Pederson) Hypokalemia ?E87.6 - Hypokalemia (ICD-10) New onset type 2 diabetes mellitus ?E11.9 - Type 2 diabetes mellitus without complications (ICD-10) Lower extremity edema ?R60.0 - Localized edema (ICD-10) Edema ?R60.9 - Edema, unspecified (ICD-10) Acute hyperglycemia ?R73.9 - Hyperglycemia, unspecified (ICD-10) Tobacco abuse ?Z72.0 - Tobacco use (ICD-10) HTN (hypertension) ?I10 - Essential (primary) hypertension (ICD-10) Community acquired pneumonia ?J18.9 - Pneumonia, unspecified organism (ICD-10) Chronic obstructive pulmonary disease ?J44.9 - Chronic obstructive pulmonary disease, unspecified (ICD-10) Acute exacerbation of chronic obstructive pulmonary disease (COPD) ?J44.1 - Chronic obstructive pulmonary disease with (acute) exacerbation (ICD-10) RLL pneumonia ?J18.9 - Pneumonia, unspecified organism (ICD-10) COPD (chronic obstructive pulmonary disease) ?J44.9 - Chronic obstructive pulmonary disease, unspecified (ICD-10) Surgical History (Updated 01/29/24 @ 06:45 by Latonia Martin RN) Hx of tonsillectomy ?Z90.89 - Acquired absence of other organs (ICD-10) Family History (Updated 12/25/23 @ 21:28 by Kym Ordaz) Mother Family history of cancer Family history of hypertension Father Family history of cancer Social History Within the past year, how often did you have a drink containing alcohol: 4 or more times a week Within the past year, how many standard drinks containing alcohol did you have on a typical day: 3 or 4 Within the past year, how often did you have six or more drinks on one occasion: less than monthly Total score: 3 Score interpretation: A score of 4 or more indicates drinking is likely to affect patient's safety. Smoking status: Current every day smoker Non-prescribed substance use: cannabis (any form) Previous occupational history: retired Highest level of school completed/degree received: high school graduate Are you now , , , , never or living with a partner: In a typical week, how many times do you talk on the telephone with family, friends, or neighbors: twice per week How often do you get together with friends or relatives: once per week How often do you attend jain or episcopalian services: never Do you belong to any clubs or organizations such as jain groups unions, fraternal or athletic groups, or school groups: no Total score: 1 Score interpretation: A score of less than or equal to 1 indicates the most socially isolated. Little interest or pleasure in doing things: several days Feeling down, depressed, or hopeless: not at all Feel stressed/tense/nervous/anxious/difficulty sleeping: not at all Do you think of yourself as: straight/heterosexual Gender Identity: male Exam Narrative Exam Narrative: Gen.: Awake, alert, in no distress Head: Normocephalic, atraumatic ENT: Moist mucous membranes Respiratory: No respiratory distress, Lungs are clear, diminished; Patient speaks in full sentences Cardio: Regular rate and rhythm Extremities: Moves extremities equally, 3+ pitting edema to the bilateral lower extremities Psych: Normal mood and affect Neuro: No focal neuro deficit Skin: Warm, dry, intact Constitutional Vital Signs, click to edit/add: Last Vital Signs Temp 97.7 F 03/01/24 17:28 Pulse 60 03/01/24 18:39 Resp 18 03/01/24 18:39 BP 172/84 H 03/01/24 17:28 Pulse Ox 98 03/01/24 18:39 O2 Del Method Room Air 03/01/24 18:39 Course Vital Signs Vital signs: Vital Signs Temperature 97.7 F 03/01/24 17:28 Pulse Rate 80 03/01/24 17:28 Respiratory Rate 18 03/01/24 17:28 Blood Pressure 172/84 H 03/01/24 17:28 Pulse Oximetry 94 L 03/01/24 17:28 Oxygen Delivery Method Room Air 03/01/24 17:28 Temperature 97.7 F 03/01/24 17:28 Pulse Rate 60 03/01/24 18:39 Respiratory Rate 18 03/01/24 18:39 Blood Pressure 172/84 H 03/01/24 17:28 Pulse Oximetry 98 03/01/24 18:39 Oxygen Delivery Method Room Air 03/01/24 18:39 Medical Decision Making MDM Narrative Medical decision making narrative: Chest x-ray stable, lab studies with normal troponin, BNP and no evidence of sepsis. Patient given a breathing treatment and Solu-Medrol in the ER. He is comfortable discharge home. No fever, tachycardia or hypoxia in the ER. Follow-up with PCP and return to the emergency department if symptoms change or worsen Medical Records Medical records reviewed: Yes I reviewed the patient's medical records Lab Data Lab results reviewed: Yes I reviewed the patient's lab results Labs: Lab Results 03/01/24 Range/Units 17:55 WBC 7.4 (4.0-11.0) 10^3/uL RBC 4.61 L (4.70-6.10) 10^6/uL Hgb 13.8 L (14.0-18.0) g/dL Hct 42.1 (42.0-54.0) % MCV 91.3 (80.0-94.0) fL MCH 29.9 (25.9-34.0) pg MCHC 32.8 (29.9-35.2) g/dL RDW 13.5 (11.0-15.0) % Plt Count 219 (150-450) 10^3/uL MPV 9.3 L (9.5-13.5) fL Neut % (Auto) 63.2 (43.0-75.0) % Lymph % (Auto) 23.7 (20.5-60.0) % [place] % (Auto) 8.4 (1.7-12.0) % Eos % (Auto) 4.1 (0.9-7.0) % Baso % (Auto) 0.3 (0.2-2.0) % Neut # (Auto) 4.7 (1.4-6.5) 10^3/uL Lymph # (Auto) 1.8 (1.2-3.8) 10^3/uL [place] # (Auto) 0.6 (0.3-0.8) 10^3/uL Eos # (Auto) 0.3 (0.0-0.7) 10^3/uL Baso # (Auto) 0.0 (0.0-0.1) 10^3/uL Abs Immat Gran (auto) 0.02 (0.00-0.03) 10^3/uL Imm/Tot Granulo (auto) 0.3 (0.0-0.5) % PT 11.4 (9.0-11.6) sec INR 1.08 APTT 29.7 (22.3-36.2) sec VBG pH 7.390 (7.330-7.430) VBG pCO2 49.8 (40.0-52.0) mmHg Sodium 141 (136-145) mmol/L Potassium 4.0 (3.5-5.1) mmol/L Chloride 104 (98-107) mmol/L Carbon Dioxide 32.3 H (21.0-32.0) mmol/L Anion Gap 8.7 BUN 6.0 L (7.0-18.0) mg/dL Creatinine 0.82 (0.70-1.30) mg/dL Est GFR ( Amer) >60 (>=60) Est GFR (Non-Af Amer) >60 (>=60) BUN/Creatinine Ratio 7.3 Glucose 391 H (74-106) mg/dL Calcium 8.7 (8.5-10.1) mg/dL Total Bilirubin 0.4 (0.2-1.0) mg/dL AST 14 L (15-37) U/L ALT 23 (16-63) U/L Alkaline Phosphatase 89 (46-116) U/L Troponin I High Sens 12.8 (4.0-76.1) pg/mL NT-Pro-B Natriuret Pep 373.0 (<=900.0) pg/mL Total Protein 6.0 L (6.4-8.2) g/dL Albumin 3.5 (3.4-5.0) g/dL Globulin 2.5 g/dL Albumin/Globulin Ratio 1.4 Imaging Data Chest x-ray: Attestation: I have reviewed the pertinent imaging results. ECG Data Attestation: I personally reviewed and interpreted this ECG as follows: (Normal sinus rhythm in the 80s, no acute ST elevation or ectopy. EKG reviewed by attending physician) Discharge Plan Discharge Stand Alone Forms: Portal Instructions Chief Complaint: Shortness of Breath/Dyspnea Clinical Impression: COPD (chronic obstructive pulmonary disease) Patient Disposition: Home, Self-Care Time of Disposition Decision: 18:38 Condition: Good Prescriptions / Home Meds: New albuterol sulfate 2.5 mg /3 mL (0.083 %) solution for nebulization 2.5 mg inhalation Q6H PRN (Reason: shortness of breath or wheezing) Qty: 90 0RF azithromycin [Zithromax Z-Luis] 250 mg tablet See Rx Instructions .ROUTE .COMPLEX Qty: 6 0RF Rx Instructions: For 250 mg dose pack: take 500 mg today (day 1), then 250 mg for 4 days (days 2-5) prednisone 20 mg tablet See Rx Instructions .ROUTE .COMPLEX Qty: 12 0RF Rx Instructions: 3 tabs daily for 2 days, then 2 tabs daily for 2 days, then 1 tab daily for 2 days albuterol sulfate 90 mcg/actuation HFA aerosol inhaler 2 inh inhalation Q4H PRN (Reason: shortness of breath or wheezing) Qty: 8.5 0RF No Action omeprazole 20 mg capsule,delayed release(DR/EC) 20 mg PO DAILY albuterol sulfate 2.5 mg /3 mL (0.083 %) solution for nebulization 2.5 mg inhalation Q6H PRN (Reason: shortness of breath or wheezing) Spiriva Respimat 2.5 mcg/actuation mist 2 inh inhalation BID fluticasone propion-salmeterol [Wixela Inhub] 250-50 mcg/dose blister with device 1 inh inhalation BID losartan 100 mg tablet 100 mg PO DAILY Qty: 30 11RF metformin 500 mg tablet 500 mg PO BID Qty: 60 0RF prednisone 10 mg tablet See Rx Instructions .ROUTE .COMPLEX Qty: 30 0RF Rx Instructions: 4 by mouth daily for three days then 3 by mouth daily for three days then 2 by mouth daily for three days then 1 by mouth daily for three days albuterol sulfate 90 mcg/actuation HFA aerosol inhaler 2 inh inhalation Q6H PRN (Reason: shortness of breath or wheezing) Qty: 8.5 2RF Print Language: [place] Islander Instructions: COPD (Chronic Obstructive Pulmonary Disease) (ED) Referrals: Physician,Non-Staff, MD [Primary Care Provider] - 1 week
--- NOTE | 2024-03-01 17:53 | XR_ITS ---
The [address] [address] Patient Name: CONSTANZA BARRETO MRN: [id number] date: 1955 Sex: M Assigned Patient Location: ER Current Patient Location: ED.MAIN Accession/Order Number: [id number] Exam Date: 03/01/2024 17:48 Report Date: 03/01/2024 18:49 At the request of: RUDDY MCGHEE Procedure: XR chest 1V EXAMINATION: XR chest 1V 03/01/2024 3:47 PM PDT HISTORY: Shortness of breath TECHNIQUE: Single frontal view of the chest acquired. COMPARISONS: Chest x-ray 01/31/2024. FINDINGS: Lines/tubes/other: None. Heart and mediastinum: Similar. Bones: No acute osseous abnormality. Healed bilateral rib fractures. Lungs: The lungs are clear. There is no evidence of pneumonia or pulmonary edema. Pleura: There is no significant pleural effusion or pneumothorax. Other: None. XR/XR chest 1V IMPRESSION: No acute cardiopulmonary abnormality. Electronically authenticated by: HARESH NORRIS Date: 03/01/2024 18:49
[2024-03-01] MEDS: METHYLPREDNISOLONE SOD SUCC PF 125 MG/2 ML VIAL IVP (18:01)
[2024-03-01 18:05] LABS: PCO2 VBG 49.8 mmHg (40.0-52.0)
[2024-03-01 18:09] LABS: Basophils Percent Auto 0.3 % (0.2-2.0); Eosinophils Absolute Auto 0.3 10^3/uL (0.0-0.7); Eosinophils Percent Auto 4.1 % (0.9-7.0); Hematocrit 42.1 % (42.0-54.0); Hemoglobin 13.8 g/dL (14.0-18.0); Immature Granulocytes Abs Auto 0.02 10^3/uL (0.00-0.03); Immature Granulocytes Pct Auto 0.3 % (0.0-0.5); Lymphocytes Absolute Auto 1.8 10^3/uL (1.2-3.8); Lymphocytes Percent Auto 23.7 % (20.5-60.0); Mean Corpuscular HGB Conc 32.8 g/dL (29.9-35.2); Mean Corpuscular Hemoglobin 29.9 pg (25.9-34.0); Mean Corpuscular Volume 91.3 fL (80.0-94.0); Mean Platelet Volume 9.3 fL (9.5-13.5); Monocytes Absolute Auto 0.6 10^3/uL (0.3-0.8); Monocytes Percent Auto 8.4 % (1.7-12.0); Neutrophils Absolute Auto 4.7 10^3/uL (1.4-6.5); Neutrophils Percent Auto 63.2 % (43.0-75.0); Platelet Count 219 10^3/uL (150-450); Red Blood Count 4.61 10^6/uL (4.70-6.10); Red Cell Distribution Width 13.5 % (11.0-15.0); White Blood Count 7.4 10^3/uL (4.0-11.0)
[2024-03-01 18:23] LABS: Alanine Aminotransferase 23 U/L (16-63); Albumin Globulin Ratio 1.4; Albumin Level 3.5 g/dL (3.4-5.0); Alkaline Phosphatase 89 U/L (46-116); Anion Gap 8.7; Aspartate Amino Transferase 14 U/L (15-37); BUN Creatinine Ratio 7.3; Bilirubin Total 0.4 mg/dL (0.2-1.0); Calcium 8.7 mg/dL (8.5-10.1); Carbon Dioxide 32.3 mmol/L (21.0-32.0); Chloride 104 mmol/L (98-107); Estimated GFR (African America >60 (>=60); Estimated GFR (Non-African Ame >60 (>=60); Globulin 2.5 g/dL; Glucose 391 mg/dL (74-106); Sodium 141 mmol/L (136-145)
[2024-03-01 18:26] LABS: INR 1.08; Partial Thromboplastin Time 29.7 sec (22.3-36.2); Prothrombin Time 11.4 sec (9.0-11.6)
[2024-03-01 18:29] LABS: Troponin I High Sensitivity 12.8 pg/mL (4.0-76.1)
[2024-03-01 18:30] VITALS: PULSE 61; O2SAT 93
[2024-03-01] MEDS: IPRATROPIUM/ALBUTEROL SULFATE 3 ML AMPUL.NEB IH (18:30)
[2024-03-01 18:39] VITALS: PULSE 60; O2SAT 98
== END 2024-03-01 19:00 | disposition home or self-care (01) ==
PROVIDERS: Physician Assistant; Emergency Provider Emergency Medicine Emergency Medical Services
DX: J44.9 Chronic obstructive pulmonary disease, unspecified (principal); E11.9 Type 2 diabetes mellitus without complications; I10 Essential (primary) hypertension; F17.210 Nicotine dependence, cigarettes, uncomplicated; Z91.148 Patient's other noncompliance with medication regimen for other reason; Z79.899 Other long term (current) drug therapy; Z87.01 Personal history of pneumonia (recurrent); Z90.89 Acquired absence of other organs
CPT/HCPCS: 36415; 71045; 80053; 82800; 83880; 84484; 85025; 85610; 85730; 93005; 94640; 96374; 99285; J2919

== ENCOUNTER 2024-03-05 19:30 | Emergency (ER) | payer MEDICARE, SELFPAY ==
[2024-03-05 19:39] VITALS: BP 194/100; PULSE 69; TEMP 36.8; O2SAT 93; BMI 25.0
--- OUTSIDE RECORDS SUMMARY | 2024-03-05 19:39 | XMS_ITS | CCD ---
Author Organization [facility] Care Team Providers Care Tier Over Name Role Phone REQUEST, NONE LISTED Primary [...] NONE LISTED Primary Care Unavaila ble ELKIN, GONSLAO Consulting Unavailable HIDLA, DR NASH Ribeiro Admitting Unavailable HILDA, DR [...] GRECHNY ., PALMIRA FOX Consulting Unavailheriberto e REGINALDO LUCIO Consulting Unavailable SISTER, SIMONE Consulting Unavailable AIMEE ., MARIYA Consulting Unavailable Allergies Allergy Classification Reported Allergen(s) Allergy Type Date of Onset Reaction(s) Facility (1 source) Penicillin Drug Allergy The [facility] Repository Problems Active Problems Problem Classification [...] 03-27-2023 Episodic Other aftercare (1 source) 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 therapy; Translations: [OTH RESIDENTIAL [...] BASO # 0.0 103/ul Normal 0.0-0.1 [facility] Comment on above: Performed By: #### C BC ####[facility] O[address]wvx[address] [place], [place] [address]DrAdalberto Pulliam Basophils/100 WBC (Bld) 0.3 % Normal 0.2-2.0 [facility] Comment on above: Performed By: #### C BC ####[facility] U[address]xf[address] [place], [place] [address]DrAdalberto Pulliam EO # 0.3 103/ul Normal 0.0-0.7 [facility] Comment on above: Performed By: #### C BC ####[facility] Vkvelucaub[address] [place], [place] [address]DrAdalberto Pulliam Eosinophils/100 WBC (Bld) 2.8 % Normal 0.9-7.0 [facility] Comment on above: Performed By: #### C BC ####[facility] [address] [place] [address]Dr. Garima Pulliam Erythrocyte distribution width (RBC) [Ratio] 13.4 % Normal 11.0-15.0 [facility] Comment on above: Performed By: #### C BC ####[facility] Bkrewtfabv[address] [place], [place] [address]Dr. Garima Pulliam Hematocrit (Bld) [Volume fraction] 45.7 % Normal 42.0-54.0 [facility] Comment on above: Performed By: #### C BC ####[facility] Svsryyihra[address] [place], [place] [address]Dr. Garima Pulliam Hemoglobin (Bld) [Mass/Vol] 15.2 g/dL Normal 14.0-18.0 [facility] Comment on above: Performed By: #### C BC ####[facility] Wnonewnvqk[address] [place], [place] [address]Dr. Garima Pulliam IG # 0.02 10e3/ul Normal 0.00-0.03 [facility] Comment on above: Performed By: #### C BC ####[facility] Qtzypmxbcv[address] [place], [place] [address]Dr. Garima Pulliam IG % 0.2 % Normal 0.0-0.5 [facility] Comment on above: Performed By: #### C BC ####[facility] Lnglfktbjd[address] [place], [place] [address]Dr. Garima Pulliam LYMPH # 2.1 103/ul Normal 1.2-3.8 [facility] Comment on above: Performed By: #### C BC ####[facility] Wyaphefatd[address] [place], [place] [address]Dr. Garima Pulliam Lymphocytes/100 WBC (Bld) 23.7 % Normal 20.5-60.0 [facility] Comment on above: Performed By: #### C BC ####[facility] Z[address] [place] [address]. Chapisrenu Pulliam MANUAL DIFF REQ NO Normal The [facility] Comment on above: Performed By: #### C BC ####[facility] S[address]fg[address] [place] [address]Dr. Garima Heraclio MCH (RBC) [Entitic mass] 30.4 pg Normal 25.9-34.0 [facility] Comment on above: Performed By: #### C BC ####[facility] Opsjjumquw5[address] [place], [place] [address]Dr. Garima Heraclio MCHC (RBC) [Mass/Vol] 33.3 g/dL Normal 29.9-35.2 [facility] Comment on above: Performed By: #### C BC ####[facility] Aumzrldnrl[address] [place], [place] [address]Dr. Garima Pulliam MCV (RBC) [Entitic vol] 91.4 fL Normal 80.0-94.0 [facility] Comment on above: Performed By: #### C BC ####[facility] Ckelpfafqj7[address] [place], [place] [address]Dr. Garima Pulliam MONO # 0.7 103/ul Normal 0.3-0.8 [facility] Comment on above: Performed By: #### C BC ####[facility] Bkslljcqgl4357[address] [place], [place] [address]Dr. Garima Pulliam Monocytes/100 WBC (Bld) 8.3 % Normal 1.7-12.0 [facility] Comment on above: Performed By: #### C BC ####[facility] Rlyqxxbyxh[address] [place], [place] [address]DrAdalberto Pulliam NEUT # 5.8 103/ul Normal 1.4-6.5 [facility] Comment on above: Performed By: #### C BC ####[facility] Bdacwtfwba3613[address] [place], [place] [address]Dr. Garima Pulliam Neutrophils/100 WBC (Bld) 64.7 % Normal 43.0-75.0 [facility] Comment on above: Performed By: #### C BC ####[facility] Omretdnyxy5787[address] [place], [place] [address]Dr. Garima Heraclio Platelet mean volume (Bld) [Entitic vol] 8.6 fL Critically low 9.5-13.5 [facility] Comment on above: Performed By: #### C BC ####[facility] Nsqkcgeztv[address] [place] [address]Dr. Chapisrenu Heraclio PLT 230 103/ul Normal 150-450 [facility] Comment on above: Performed By: #### C BC ####[facility] Vsjubdstmk7[address] [place] [address]Dr. Garima Pulliam RBC 5.00 106/ul Normal 4.70-6.10 [facility] Comment on above: Performed By: #### C BC ####[facility] Wfbmqemcuh[address] [place], [place] [address]Dr. Garima Pulliam WBC 9.0 103/ul Normal 4.0-11.0 [facility] Comment on above: Performed By: #### C BC ####[facility] Ktefnwhdzr[address] [place], [place] [address]DrAdalberto Pulliam MAGNESIUMon 04-04-2023 Magnesium [Mass/Vol] 1.8 mg/dL Normal 1.8-2.4 [facility] Comment on above: Performed By: #### M G ####[facility] Jtkmssttje7735[address] [place], [place] [address]DrAdalberto Pulliam PROF 14(COMP METB)on 023 Albumin [Mass/Vol] 3.8 g/dL Normal 3.4-5.0 [facility] Comment on above: Performed By: #### C MP ####[facility] Jpnqpgrtyj[address] [place] [address]DrAdalberto Pulliam Albumin/Globulin [Mass ratio] 1.2 {ratio} Normal [facility] Comment on above: Performed By: #### C MP ####[facility] Ij[address]burwgz[address] [place] [address]DrAdalberto Pulliam ALP [Catalytic activity/Vol] 84 U/L Normal 46-116 [facility] Comment on above: Performed By: #### C MP ####[facility] Jxqpycmnfb8[address] [place] [id number]. Garima Pulliam ALT [Catalytic activity/Vol] 31 U/L Normal 16-63 [facility] Comment on above: Performed By: #### C MP ####[facility] Lltxfmlbqw3254[address] [place], [place] [address]Dr. Garima Pulliam Anion gap [Moles/Vol] 12.2 mmol/L Normal Th e [facility] Comment on above: Performed By: #### C MP ####[facility] Tbvbvgziqi6337[address] [place], [place] [address]Dr. Garima Pulliam AST [Catalytic activity/Vol] 23 U/L Normal 15-37 [facility] Comment on above: Performed By: #### C MP ####[facility] Vvwokjelyf8[address] [place], [place] [address]Dr. Garima Pulliam Bilirubin [Mass/Vol] 0.5 mg/dL Normal 0.2-1.0 [facility] Comment on above: Performed By: #### C MP ####[facility] Ltivxccvcu17[address] [place], [place] [address]Dr. Garima Pulliam Calcium [Mass/Vol] 9.2 mg/dL Normal 8.5-10.1 [facility] Comment on above: Performed By: #### C MP ####[facility] Gfqlpkpwak6[address] [place], [place] [address]Dr. Garima Pulliam Chloride [Moles/Vol] 103 mmol/L Normal 98-107 [facility] Comment on above: Performed By: #### C MP ####[facility] Qxtqqogdeh4574[address] [place], [place] [address]Dr. Garima Pulliam CO2 [Moles/Vol] 28.5 mmol/L Normal 21.0-32.0 [facility] Comment on above: Performed By: #### C MP ####[facility] Wwrzeaqafw64[address] [place], [place] [address]Dr. Garima Pulliam Creatinine [Mass/Vol] 0.74 mg/dL Normal 0.70-1.30 [facility] Comment on above: Performed By: #### C MP ####[facility] Szzfufajxd[address] [place], [place] [address]Dr. Garima Pulliam EGFR-AF POLISH >60 Normal >=60 [facility] Comment on above: Performed By: #### C MP ####[facility] [address] [place] [id number]. Garima Pulliam EGFR-NON AF POLISH >60 Normal >=60 [facility] Comment on above: Performed By: #### C MP ####[facility] M[address]mygaoq[address] [place] [phone]. Garima Heraclio Globulin (S) [Mass/Vol] 3.1 g/dL Normal [facility] Comment on above: Performed By: #### C MP ####[facility] [address]qrhjfwrh[address] [place] [address]Dr. Garima Heraclio Glucose [Mass/Vol] 93 mg/dL Normal 74-106 [facility] Comment on above: Performed By: #### C MP ####[facility] Mfzpqgiaig[address] [place] [address]Dr. Garima Heraclio Potassium [Moles/Vol] 3.7 mmol/L Normal 3.5-5.1 [facility] Comment on above: Performed By: #### C MP ####[facility] Syhdyqhist[address] [place], [place] [address]Dr. Garima Heraclio Protein [Mass/Vol] 6.9 g/dL Normal 6.4-8.2 [facility] Comment on above: Performed By: #### C MP ####[facility] Qdctqicxwt[address] [place] [address]Dr. Garima Heraclio Sodium [Moles/Vol] 140 mmol/L Normal 136-145 [facility] Comment on above: Performed By: #### C MP ####[facility] [address]atqx[address] [place] [address]Dr. Garima Heraclio Urea nitrogen [Mass/Vol] 8.0 mg/dL Normal 7.0-18.0 [facility] Comment on above: Performed By: #### C MP ####[facility] Mhwdqdutjk[address] [place] [phone]. Chapisrenu Heraclio Urea nitrogen/Creatinine [Mass ratio] 10.8 mg/mg Normal [facility] Comment on above: Performed By: #### C MP ####[facility] Trec[address]ck[address] [place] [address]Dr. Garima Pulliam AMMONIAon 03-30-2023 Ammonia (P) [Moles/Vol] 11 umol/L Normal 11-32 [facility] Comment on above: Performed By: #### A MM ####[facility] Pviegciefa[address] [place], [place] [address]Dr. Garima Pulliam CARDIAC NASH ADMITon 023 CK [Catalytic activity/Vol] 232 U/L Normal 39-308 [facility] Comment on above: Performed By: #### C NANCY HERNANDEZ ####[facility] Hkoywcqubq[address] [place], [place] [address]Dr. Garima Pulliam CK.MB [Mass/Vol] 4.83 ng/mL Critically high <=3.60 [facility] Comment on above: Performed By: #### C NANCY HERNANDEZ ####[facility] Nsseewzxnh[address] [place], [place] [address]Dr. Garima Heraclio HSTROP 10.5 pg/mL Normal 4.0-76.1 [facility] Comment on above: Result Comment: CUT- OFF POINTS HAVE BEEN ESTABLISHED BASED ON THE FOURTH UNIVERSAL DEFINITIONS OF MYOCARDIALINFARCTION. THE UPPER REFERENCE LIMIT (URL) OF TROPONIN, DEFINED THE 99TH PERCENTILE OFcTnI DISTRIBUTION IN A REFERENCE POPULATION, HAS BEEN CONFIRMED THE DECISION THRESHOLDFOR MN DIAGNOSIS. Performed By: #### C NANCY HERNANDEZ ####[facility] Wbiwqjobys4[address] [place], [place] [address]Dr. Garima Pulliam DORIS 79 ng/mL Normal 16-96 [facility] Comment on above: Performed By: #### C NANCY HERNANDEZ ####[facility] Mdzjakqjid[address] [place], [place] [address]Dr. Chapisrenu Pulliam CBC AUTO DIFFon 03-30-2023 BASO # 0.0 103/ul Normal 0.0-0.1 [facility] Comment on above: Performed By: #### C BC ####[facility] [address]idszu[address] [place] [address]Dr. Garima Pulliam Basophils/100 WBC (Bld) 0.1 % Critically low 0.2-2.0 [facility] Comment on above: Performed By: #### C BC ####[facility] Qnnggioanw9740[address] [place], [place] [address]Dr. Garima Pulliam EO # 0.3 103/ul Normal 0.0-0.7 [facility] Comment on above: Performed By: #### C BC ####[facility] Nhlhllshkl00[address] [place], [place] [address]Dr. Garima Pulliam Eosinophils/100 WBC (Bld) 3.3 % Normal 0.9-7.0 [facility] Comment on above: Performed By: #### C BC ####[facility] Wjktakszwo7[address] [place], [place] [address]Dr. Garima Pulliam Erythrocyte distribution width (RBC) [Ratio] 13.5 % Normal 11.0-15.0 [facility] Comment on above: Performed By: #### C BC ####[facility] Edieniinxi8[address] [place], [place] [address]Dr. Garima Pulliam Hematocrit (Bld) [Volume fraction] 42.9 % Normal 42.0-54.0 [facility] Comment on above: Performed By: #### C BC ####[facility] T[address]zuhzsoj[address] [place], [place] [address]Dr. Garima Pulliam Hemoglobin (Bld) [Mass/Vol] 13.9 g/dL Critically low 14.0-18.0 [facility] Comment on above: Performed By: #### C BC ####[facility] Qbwdoaeanw[address] [place], [place] [address]Dr. Garima Pulliam IG # 0.01 10e3/ul Normal 0.00-0.03 [facility] Comment on above: Performed By: #### C BC ####[facility] Fzrreaakna[address] [place], [place] [address]Dr. Garima Pulliam IG % 0.1 % Normal 0.0-0.5 [facility] Comment on above: Performed By: #### C BC ####[facility] [address]xpqdq[address] [place] [phone]. Garima Heraclio LYMPH # 1.7 103/ul Normal 1.2-3.8 [facility] Comment on above: Performed By: #### C BC ####[facility] Ignwvihvff[address] [place] [phone]. Garima Heraclio Lymphocytes/100 WBC (Bld) 22.8 % Normal 20.5-60.0 [facility] Comment on above: Performed By: #### C BC ####[facility] [address]qde[address] [place] [address]Dr. Chapisrenu Pulliam MANUAL DIFF REQ NO Normal [facility] Comment on above: Performed By: #### C BC ####[facility] Wfijzzszet[address] [place] [address]Dr. Garima Heraclio MCH (RBC) [Entitic mass] 30.5 pg Normal 25.9-34.0 [facility] Comment on above: Performed By: #### C BC ####[facility] M[address]xghurt[address] [place] [address]Dr. Garima Heraclio MCHC (RBC) [Mass/Vol] 32.4 g/dL Normal 29.9-35.2 [facility] Comment on above: Performed By: #### C BC ####[facility] Rsmzmxziyg[address] [place] [phone]. Chapisrenu Pulliam MCV (RBC) [Entitic vol] 94.1 fL Critically high 80.0-94.0 [facility] Comment on above: Performed By: #### C BC ####[facility] [address]zfhbrnx[address] [place] [phone]. Chapisrenu Pulliam MONO # 0.7 103/ul Normal 0.3-0.8 [facility] Comment on above: Performed By: #### C BC ####[facility] Akwqmdqygq[address] [place] [address]Dr. Chapisrenu Pulliam Monocytes/100 WBC (Bld) 8.6 % Normal 1.7-12.0 [facility] Comment on above: Performed By: #### C BC ####[facility] Z[address]fttnsycr[address] [place] [phone]. Garima Pulliam NEUT # 4.9 103/ul Normal 1.4-6.5 [facility] Comment on above: Performed By: #### C BC ####[facility] Vdbybawfwj[address] [place] [phone]. Garima Pulliam Neutrophils/100 WBC (Bld) 65.1 % Normal 43.0-75.0 [facility] Comment on above: Performed By: #### C BC ####[facility] Tqzslbpdmn[address] [place] [address]Dr. Garima Pulliam Platelet mean volume (Bld) [Entitic vol] 8.5 fL Critically low 9.5-13.5 [facility] Comment on above: Performed By: #### C BC ####[facility] R[address]zbrhufgm[address] [place] [phone]. Garima Pulliam PLT 219 103/ul Normal 150-450 [facility] Comment on above: Performed By: #### C BC ####[facility] Aclyzcpiks[address] [place] [phone]. Garima Pulliam RBC 4.56 106/ul Critically low 4.70-6.10 [facility] Comment on above: Performed By: #### C BC ####[facility] Jzjkurgezx[address] [place] [phone]. Garima Pulliam WBC 7.6 103/ul Normal 4.0-11.0 [facility] Comment on above: Performed By: #### C BC ####[facility] Iujqlqanhh[address] [place] [phone]. Garima Pulliam LACTATE/LACTIC ACIDon 2022 Lactate [Moles/Vol] 1.2 mmol/L Normal 0.4-2.0 [facility] Comment on above: Performed By: #### L ACT ####[facility] [address]ubdacphz[address] [place] [address]Dr. Garima Pulliam MAGNESIUMon 03-30-2023 Magnesium [Mass/Vol] 1.8 mg/dL Normal 1.8-2.4 [facility] Comment on above: Performed By: #### M G ####[facility] Zrcsjtdpom[address] [place] [address]Dr. Garima Pulliam PROF 14(COMP METB)on 023 Albumin [Mass/Vol] 3.5 g/dL Normal 3.4-5.0 [facility] Comment on above: Performed By: #### C DAVID, CMADM ####[facility] Dvkwibdzqr[address] [place] [address]Dr. Garima Pulliam Albumin/Globulin [Mass ratio] 1.2 {ratio} Normal [facility] Comment on above: Performed By: #### C DAVID, CMADM ####[facility] Inxuptjyfe4[address] [place] [address]Dr. Garima Pulliam ALP [Catalytic activity/Vol] 85 U/L Normal 46-116 [facility] Comment on above: Performed By: #### C DAVID, CMADM ####[facility] Bkwqwmbwvi[address] [place] [address]Dr. Garima Pulliam ALT [Catalytic activity/Vol] 29 U/L Normal 16-63 [facility] Comment on above: Performed By: #### C DAVID, CMADM ####[facility] Sfadnzgulj55[address] [place] [address]Dr. Garima Pulliam Anion gap [Moles/Vol] 8.0 mmol/L Normal [facility] Comment on above: Performed By: #### C DAVID, CMADM ####[facility] Jjplwvosqm58[address] [place] [address]Dr. Garima Pulliam AST [Catalytic activity/Vol] 18 U/L Normal 15-37 [facility] Comment on above: Performed By: #### C DAVID, CMADM ####[facility] Zavxexixnp76[address] [place] [address]Dr. Garima Pulliam Bilirubin [Mass/Vol] 0.4 mg/dL Normal 0.2-1.0 [facility] Comment on above: Performed By: #### C DAVID, CMADM ####[facility] Cciqidqmtz0[address] [place] [address]Dr. Garima Pulliam Calcium [Mass/Vol] 8.8 mg/dL Normal 8.5-10.1 [facility] Comment on above: Performed By: #### C DAVID, NANCY ####[facility] Nyxkwjzsqx00[address] [place] [address]Dr. Chapisrenu Heraclio Chloride [Moles/Vol] 108 mmol/L Critically high 98-107 [facility] Comment on above: Performed By: #### C DAVID, CMADM ####[facility] Gcjxikjvwe[address] [place] [address]Dr. Chapisrenu Heraclio CO2 [Moles/Vol] 29.6 mmol/L Normal 21.0-32.0 [facility] Comment on above: Performed By: #### C DAVID, NANCY ####[facility] Fcohctwzvj5[address] [place], [place] [address]Dr. Garima Pulliam Creatinine [Mass/Vol] 0.77 mg/dL Normal 0.70-1.30 [facility] Comment on above: Performed By: #### C DAVID, CMAANA ROSA ####[facility] Hjwyauenjv[address] [place], [place] [address]Dr. Garima Heraclio EGFR-AF POLISH >60 Normal >=60 [facility] Comment on above: Performed By: #### C DAVID, NANCY ####[facility] Ifktrsgyfi350[address] [place], [place] [address]Dr. Garima Heraclio EGFR-NON AF POLISH >60 Normal >=60 [facility] Comment on above: Performed By: #### C DAVID, CMADM ####[facility] Bksscdkyms[address] [place], [place] [address]Dr. Garima Pulliam Globulin (S) [Mass/Vol] 2.8 g/dL Normal [facility] Comment on above: Performed By: #### C DAVID, CMADM ####[facility] Gyzjsdtymr[address] [place], [place] [address]Dr. Garima Pulliam Glucose [Mass/Vol] 207 mg/dL Critically high 74-106 [facility] Comment on above: Performed By: #### C DAVID, CMADM ####[facility] Auzgrkxkje[address] [place], [place] [address]Dr. Garima Pulliam Potassium [Moles/Vol] 4.6 mmol/L Normal 3.5-5.1 [facility] Comment on above: Performed By: #### C DAVID, NANCY ####[facility] Ytvmmcbytc4180 [place] [address]Dr. Garima Pulliam Protein [Mass/Vol] 6.3 g/dL Critically low 6.4-8.2 Th e [facility] Comment on above: Performed By: #### C DAVID, NANCY ####[facility] Gwifwiekbm[address] [place] [address]Dr. Garima Pulliam Sodium [Moles/Vol] 141 mmol/L Normal 136-145 [facility] Comment on above: Performed By: #### C DAVID, NANCY ####[facility] Rtgjqvtlrp[address] [place], [place] [address]Dr. Garima Pulliam Urea nitrogen [Mass/Vol] 9.0 mg/dL Normal 7.0-18.0 [facility] Comment on above: Performed By: #### C NANCY HERNANDEZ ####[facility] Aatughovct[address] [place], [place] [address]Dr. Garima Pulliam Urea nitrogen/Creatinine [Mass ratio] 11.7 mg/mg Normal [facility] Comment on above: Performed By: #### C NANCY HERNANDEZ ####[facility] [address]zexvjhuj[address] [place], [place] [address]Dr. Garima Pulliam XR CHEST 1 Von 03-30-2023 XR CHEST 1 V Normal [facility] BNPon 03-27-2023 Natriuretic peptide B (Bld) [Mass/Vol] 251.0 pg/mL Normal <=900.0 [facility] Comment on above: Performed By: #### C MP, BNP, LIPID ####[facility] [address]ztuukwfoi[address] [place], [place] [address]Dr. Garima Pulliam GLYCOHEMOGLOBIN A1Con 2022 ADA RECOMMENDATION SEE BELOW Normal [facility] Comment on above: Result Comment: ADA RECOMMENDED LIMIT 4.0 - 6.0 ADA THERAPEUTIC TARGET < 7.0 ACTION SUGGESTED > 7.0 Performed By: #### A 1C ####[facility] Gploxcdbvn34[address] [place] [address]Dr. Garima Pulliam Glucose [Mass/Vol] 180 mg/dL Normal [facility] Comment on above: Performed By: #### A 1C ####[facility] Mhvwwwgmst[address] [place], [place] [address]Dr. Garima Pulliam HbA1c (Bld) [Mass fraction] 7.9 % Critically high 4.5-6.2 [facility] Comment on above: Performed By: #### A 1C ####[facility] [address]qtdzpynip[address] [place], [place] [address]Dr. Garima Pulliam HEMOGRAM AND PLATELon 2022 Hematocrit (Bld) [Volume fraction] 45.7 % Normal 42.0-54.0 [facility] Comment on above: Performed By: #### H H ####[facility] Qrxapgwdjh[address] [place], [place] [address]Dr. Chapisrenu Pulliam Hemoglobin (Bld) [Mass/Vol] 15.1 g/dL Normal 14.0-18.0 [facility] Comment on above: Performed By: #### H H ####[facility] Lsevseuscu[address] [place], [place] [address]Dr. Garima Pulliam MCH (RBC) [Entitic mass] 30.0 pg Normal 25.9-34.0 [facility] Comment on above: Performed By: #### H H ####[facility] Fsworkmcrg6[address] [place], [place] [address]Dr. Garima Pulliam MCHC (RBC) [Mass/Vol] 33.0 g/dL Normal 29.9-35.2 [facility] Comment on above: Performed By: #### H H ####[facility] Bkrbdcomou[address] [place], [place] [address]Dr. Garima Pulliam MCV (RBC) [Entitic vol] 90.7 fL Normal 80.0-94.0 [facility] Comment on above: Performed By: #### H H ####[facility] Ubhqflyert[address] [place], [place] [address]Dr. Chapisrenu Pulliam PLT 222 103/ul Normal 150-450 [facility] Comment on above: Performed By: #### H H ####[facility] Cgldsqyfex3[address] [place] [id number]. Garima Pulliam RBC 5.04 106/ul Normal 4.70-6.10 [facility] Comment on above: Performed By: #### H H ####[facility] Dibfecpbei88[address] [place] [id number]. Garima Pulliam WBC 8.7 103/ul Normal 4.0-11.0 [facility] Comment on above: Performed By: #### H H ####[facility] Ythhanalgm55[address] [place] [id number]. Garima Pulliam LIPID PROFILEon 03-27-2023 CHOL-HDL RATIO NORM SEE BELOW Normal [facility] Comment on above: Result Comment: 3.3 - 4.4 LOW RISK 4.4 - 7.1 AVERAGE RISK 7.1 - 11.0 MODERATE RISK >11.0 HIGH RISK Performed By: #### C MP, BNP, LIPID ####[facility] Dczgktqgjq[address] [place] [address]Dr. Garima Pulliam Cholesterol [Mass/Vol] 113 mg/dL Normal <=200 [facility] Comment on above: Performed By: #### C MP, BNP, LIPID ####[facility] Oenydvrllf[address] [place] [address]Dr. Garima Pulliam Cholesterol in HDL [Mass/Vol] 51 mg/dL Normal 40-60 [facility] Comment on above: Performed By: #### C MP, BNP, LIPID ####[facility] Zgzgtrsdtr26[address] [place] [address]Dr. Garima Pulliam Cholesterol in LDL [Mass/Vol] 49.8 mg/dL Normal [facility] Comment on above: Performed By: #### C MP, BNP, LIPID ####[facility] Diczmvebqo82[address] [place] [address]Dr. Garima Pulliam Cholesterol.total/Cho lesterol in HDL [Mass ratio] 2.2 {ratio} Normal [facility] Comment on above: Performed By: #### C MP, BNP, LIPID ####[facility] Marmkpopzy[address] [place] [address]Dr. Garima Pulliam HDL NORMAL > or = 60 mg/dl - LOW CARDIOVASCULAR RISK <40 mg/dl - HIGH CARDIOVASCULAR RISK Normal [facility] Comment on above: Performed By: #### C MP, BNP, LIPID ####[facility] Lyaolnkmwy[address] [place] [address]Dr. Garima Pulliam LDL CALC NORMAL SEE BELOW Normal [facility] Comment on above: Result Comment: <100 mg/dl OPTIMAL 100 - 129 mg/dl NEAR OR ABOVE OPTIMAL 130 - 159 mg/dl BORDERLINE HIGH 160 - 189 mg/dl HIGH >190 mg/dl VERY HIGH Performed By: #### C MP, BNP, LIPID ####[facility] Fdsyjdpsel[address] [place] [address]Dr. Garima Pulliam Triglyceride [Mass/Vol] 61 mg/dL Normal <=150 [facility] Comment on above: Performed By: #### C MP, BNP, LIPID ####[facility] Mvshmyrnjs65[address] [place] [address]Dr. Garima Pulliam VLDL CALC 12.2 mg/dL Normal [facility] Comment on above: Performed By: #### C MP, BNP, LIPID ####[facility] Ughwmydlhj57[address] [place] [address]Dr. Garima Pulliam PROF 14(COMP METB)on 023 Albumin [Mass/Vol] 3.5 g/dL Normal 3.4-5.0 [facility] Comment on above: Performed By: #### C MP, BNP, LIPID ####[facility] Przkduzmep[address] [place] [address]Dr. Garima Pulliam Albumin/Globulin [Mass ratio] 1.2 {ratio} Normal [facility] Comment on above: Performed By: #### C MP, BNP, LIPID ####[facility] Rxqrmdtkzp6071 [place] [address]Dr. Garima Pulliam ALP [Catalytic activity/Vol] 82 U/L Normal 46-116 [facility] Comment on above: Performed By: #### C MP, BNP, LIPID ####[facility] Abnkxffmvw0103 [place] [address]Dr. Garima Pulliam ALT [Catalytic activity/Vol] 33 U/L Normal 16-63 [facility] Comment on above: Performed By: #### C MP, BNP, LIPID ####[facility] Hodmbcrdvs2108 [place] [address]Dr. Garima Pulliam Anion gap [Moles/Vol] 9.9 mmol/L Normal [facility] Comment on above: Performed By: #### C MP, BNP, LIPID ####[facility] Zmylhqsedf6626 [place] [address]Dr. Garima Pulliam AST [Catalytic activity/Vol] 24 U/L Normal 15-37 [facility] Comment on above: Performed By: #### C MP, BNP, LIPID ####[facility] Fudksosksk39[address] [place] [address]Dr. Garima Pulliam Bilirubin [Mass/Vol] 0.6 mg/dL Normal 0.2-1.0 [facility] Comment on above: Performed By: #### C MP, BNP, LIPID ####[facility] Efmiyxzsna1557 [place] [address]Dr. Garima Pulliam Calcium [Mass/Vol] 9.2 mg/dL Normal 8.5-10.1 [facility] Comment on above: Performed By: #### C MP, BNP, LIPID ####[facility] Zsbosgcxyd4145 [place] [address]Dr. Garima Pulliam Chloride [Moles/Vol] 106 mmol/L Normal 98-107 [facility] Comment on above: Performed By: #### C MP, BNP, LIPID ####[facility] Sdiwtoelmr2915 [place] [address]Dr. Garima Pulliam CO2 [Moles/Vol] 32.3 mmol/L Critically high 21.0-32.0 [facility] Comment on above: Performed By: #### C MP, BNP, LIPID ####[facility] Ezgdjkibrg4908 [place] [address]Dr. Garima Pulliam Creatinine [Mass/Vol] 0.70 mg/dL Normal 0.70-1.30 [facility] Comment on above: Performed By: #### C MP, BNP, LIPID ####[facility] Kmsciepvab75[address] [place] [id number]. Garima Pulliam EGFR-AF POLISH >60 Normal >=60 [facility] Comment on above: Performed By: #### C MP, BNP, LIPID ####[facility] Wefgvcetff7026 [place] [id number]. Garima Pulliam EGFR-NON AF POLISH >60 Normal >=60 [facility] Comment on above: Performed By: #### C MP, BNP, LIPID ####[facility] Ojjpfjczqt0728 [place] [address]Dr. Garima Pulliam Globulin (S) [Mass/Vol] 2.9 g/dL Normal [facility] Comment on above: Performed By: #### C MP, BNP, LIPID ####[facility] Jmjboqxmau1592 [place] [address]Dr. Garima Pulliam Glucose [Mass/Vol] 111 mg/dL Critically high 74-106 [facility] Comment on above: Performed By: #### C MP, BNP, LIPID ####[facility] Coxndincga3204 [place] [address]Dr. Garima Pulliam Potassium [Moles/Vol] 4.2 mmol/L Normal 3.5-5.1 [facility] Comment on above: Performed By: #### C MP, BNP, LIPID ####[facility] Fdpxqbdzqb5584 [place] [address]Dr. Garima Pulliam Protein [Mass/Vol] 6.4 g/dL Normal 6.4-8.2 [facility] Comment on above: Performed By: #### C MP, BNP, LIPID ####[facility] Cuombdqqim8049 [place] [address]Dr. Garima Pulliam Sodium [Moles/Vol] 144 mmol/L Normal 136-145 [facility] Comment on above: Performed By: #### C MP, BNP, LIPID ####[facility] Ulivsbezfg3765 [place] [address]Dr. Garima Pulliam Urea nitrogen [Mass/Vol] 7.0 mg/dL Normal 7.0-18.0 [facility] Comment on above: Performed By: #### C MP, BNP, LIPID ####[facility] Msjmapwsnf[address] [place], [place] [address]Dr. Garima Pulliam Urea nitrogen/Creatinine [Mass ratio] 10.0 mg/mg Normal [facility] Comment on above: Performed By: #### C MP, BNP, LIPID ####[facility] Irrlueslto[address] [place], [place] [address]Dr. Garima Pulliam BNPon 03-22-2023 Natriuretic peptide B (Bld) [Mass/Vol] 103.0 pg/mL Normal <=900.0 [facility] Comment on above: Performed By: #### B PSYCHOMETRICIAN, BMP ####[facility] Qwzivsazwx[address] [place], [place] [address]Dr. Garima Pulliam CBC AUTO DIFFon 03-22-2023 BASO # 0.0 103/ul Normal 0.0-0.1 [facility] Comment on above: Performed By: #### C BC ####[facility] Efolerwmeu[address] [place], [place] [address]Dr. Garima Heraclio Basophils/100 WBC (Bld) 0.3 % Normal 0.2-2.0 [facility] Comment on above: Performed By: #### C BC ####[facility] Onpeiaghlu6[address] [place], [place] [address]Dr. Garima Pulliam EO # 0.2 103/ul Normal 0.0-0.7 [facility] Comment on above: Performed By: #### C BC ####[facility] Gcmbetofpl[address] [place], [place] [address]Dr. Garima Heraclio Eosinophils/100 WBC (Bld) 2.2 % Normal 0.9-7.0 [facility] Comment on above: Performed By: #### C BC ####[facility] Jzjqqvrdqq[address] [place], [place] [address]Dr. Garima Pulliam Erythrocyte distribution width (RBC) [Ratio] 13.2 % Normal 11.0-15.0 [facility] Comment on above: Performed By: #### C BC ####[facility] Dymkfbhfze0274 [place] [address]Dr. Chapisrenu Pulliam Hematocrit (Bld) [Volume fraction] 43.4 % Normal 42.0-54.0 [facility] Comment on above: Performed By: #### C BC ####[facility] Fvcpgncsez9354 [place] [address]Dr. Garima Pulliam Hemoglobin (Bld) [Mass/Vol] 14.3 g/dL Normal 14.0-18.0 [facility] Comment on above: Performed By: #### C BC ####[facility] Ukzemrvhdo[address] [place], [place] [address]Dr. Garima Pulliam IG # 0.02 10e3/ul Normal 0.00-0.03 [facility] Comment on above: Performed By: #### C BC ####[facility] Ngpcveflvw[address] [place], [place] [address]Dr. Garima Pulliam IG % 0.3 % Normal 0.0-0.5 [facility] Comment on above: Performed By: #### C BC ####[facility] Nmoacvlpvt[address] [place], [place] [address]Dr. Garima Pulliam LYMPH # 2.0 103/ul Normal 1.2-3.8 [facility] Comment on above: Performed By: #### C BC ####[facility] Nxzlsqblaz[address] [place], [place] [address]Dr. Garima Pulliam Lymphocytes/100 WBC (Bld) 24.8 % Normal 20.5-60.0 [facility] Comment on above: Performed By: #### C BC ####[facility] Cusotjkovy[address] [place] [address]Dr. Garima Pulliam MANUAL DIFF REQ NO Normal [facility] Comment on above: Performed By: #### C BC ####[facility] Sqrvmqsxpv[address] [place], [place] [address]Dr. Garima Pulliam MCH (RBC) [Entitic mass] 30.0 pg Normal 25.9-34.0 [facility] Comment on above: Performed By: #### C BC ####[facility] Uduwgppagk[address] [place], [place] [address]Dr. Garima Pulliam MCHC (RBC) [Mass/Vol] 32.9 g/dL Normal 29.9-35.2 [facility] Comment on above: Performed By: #### C BC ####[facility] Fqgonxayfw[address] [place] [address]Dr. Garima Heraclio MCV (RBC) [Entitic vol] 91.0 fL Normal 80.0-94.0 [facility] Comment on above: Performed By: #### C BC ####[facility] Gypsuixixp20[address] [place] [address]Dr. Garima Pulliam MONO # 0.8 103/ul Normal 0.3-0.8 [facility] Comment on above: Performed By: #### C BC ####[facility] Jbihfcbnro[address] [place], [place] [address]Dr. Garima Pulliam Monocytes/100 WBC (Bld) 9.7 % Normal 1.7-12.0 [facility] Comment on above: Performed By: #### C BC ####[facility] Gmszxntqdz[address] [place], [place] [address]Dr. Garima Pulliam NEUT # 4.9 103/ul Normal 1.4-6.5 [facility] Comment on above: Performed By: #### C BC ####[facility] Uduxitedwd46[address] [place], [place] [address]Dr. Garima Pulliam Neutrophils/100 WBC (Bld) 62.7 % Normal 43.0-75.0 [facility] Comment on above: Performed By: #### C BC ####[facility] Jnfiuccsgb[address] [place], [place] [address]Dr. Garima Pulliam Platelet mean volume (Bld) [Entitic vol] 8.8 fL Critically low 9.5-13.5 [facility] Comment on above: Performed By: #### C BC ####[facility] Pmfhmyosbw[address] [place], [place] [address]Dr. Garima Pulliam PLT 198 103/ul Normal 150-450 [facility] Comment on above: Performed By: #### C BC ####[facility] Qqhspuwwms23[address] [place] [address]Dr. Garima Pulliam RBC 4.77 106/ul Normal 4.70-6.10 [facility] Comment on above: Performed By: #### C BC ####[facility] Zcdkdnnzzk0506 [place] [address]Dr. Garima Heraclio WBC 7.9 103/ul Normal 4.0-11.0 [facility] Comment on above: Performed By: #### C BC ####[facility] Xpzkwmfkww2962 [place] [address]Dr. Chapisrenu Pulliam D-DIMERon 03-22-2023 D-DIMER 0.85 mg/L FEU Critically high <=0.59 [facility] Comment on above: Performed By: #### D DIM ####[facility] Kemnhnffbf9[address] [place] [address]Dr. Garima Pulliam D-DIMER COMMENTS SEE BELOW Normal [facility] Comment on above: Result Comment: Incr [...] generalized hospitalization. Performed By: #### D DIM ####[facility] Jgnsxntwhb3096 [place] [address]Dr. Garima Pulliam PROF CHEM 8 (BAS METB)on Anion gap [Moles/Vol] 6.9 mmol/L Normal [facility] Comment on above: Performed By: #### B PSYCHOMETRICIAN, BMP ####[facility] Oxxlfykirl3331 [place] [address]Dr. Garima Pulliam Calcium [Mass/Vol] 8.9 mg/dL Normal 8.5-10.1 [facility] Comment on above: Performed By: #### B PSYCHOMETRICIAN, BMP ####[facility] Uopbowabxk7742 [place] [address]Dr. Garima Pulliam Chloride [Moles/Vol] 101 mmol/L Normal 98-107 [facility] Comment on above: Performed By: #### B PSYCHOMETRICIAN, BMP ####[facility] Oufwjpkhhy[address] [place], [place] [address]Dr. Garima Pulliam CO2 [Moles/Vol] 30.7 mmol/L Normal 21.0-32.0 [facility] Comment on above: Performed By: #### B PSYCHOMETRICIAN, BMP ####[facility] Fqhutbamrw23[address] [place], [place] [address]Dr. Chapisrenu Heraclio Creatinine [Mass/Vol] 0.82 mg/dL Normal 0.70-1.30 [facility] Comment on above: Performed By: #### B PSYCHOMETRICIAN, BMP ####[facility] Eurnvffgle[address] [place], [place] [address]Dr. Garima Pulliam EGFR-AF POLISH >60 Normal >=60 [facility] Comment on above: Performed By: #### B PSYCHOMETRICIAN, BMP ####[facility] Kqpbyggwtb[address] [place], [place] [address]Dr. Chapisrenu Heraclio EGFR-NON AF POLISH >60 Normal >=60 [facility] Comment on above: Performed By: #### B PSYCHOMETRICIAN, BMP ####[facility] V[address]jcwhbzzy[address] [place], [place] [address]Dr. Garima Pulliam Glucose [Mass/Vol] 339 mg/dL Critically high 74-106 [facility] Comment on above: Performed By: #### B PSYCHOMETRICIAN, BMP ####[facility] Cxuhseenoo35[address] [place], [place] [address]Dr. Garima Pulliam Potassium [Moles/Vol] 3.6 mmol/L Normal 3.5-5.1 [facility] Comment on above: Performed By: #### B PSYCHOMETRICIAN, BMP ####[facility] Gxstfslmdv[address] [place], [place] [address]Dr. Garima Pulliam Sodium [Moles/Vol] 135 mmol/L Critically low 136-145 [facility] Comment on above: Performed By: #### B PSYCHOMETRICIAN, BMP ####[facility] Ljrjjacxpr9[address] [place], [place] [address]Dr. Garima Pulliam Urea nitrogen [Mass/Vol] 11.0 mg/dL Normal 7.0-18.0 [facility] Comment on above: Performed By: #### B PSYCHOMETRICIAN, BMP ####[facility] Ekdmjtrcrt6[address] [place], [place] [address]Dr. Garima Pulliam Urea nitrogen/Creatinine [Mass ratio] 13.4 mg/mg Normal [facility] Comment on above: Performed By: #### B PSYCHOMETRICIAN, BMP ####[facility] Fzborpzyot9[address] [place], [place] [address]DrAdalberto Garima Heraclio US VERONICA DOP LEG BILon 023 US VERONICA DOP LEG BENOIT Normal [facility] BNPon 03-18-2023 Natriuretic peptide B (Bld) [Mass/Vol] 226.0 pg/mL Normal <=900.0 [facility] Comment on above: Performed By: #### B PSYCHOMETRICIAN, BMP ####[facility] Ddwpbulred8[address] [place], [place] [address]Dr. Garima Heraclio CBC AUTO DIFFon 03-18-2023 BASO # 0.0 103/ul Normal 0.0-0.1 [facility] Comment on above: Performed By: #### C BC ####[facility] Edfnfqnibz36[address] [place], [place] [address]Dr. Garima Heraclio Basophils/100 WBC (Bld) 0.2 % Normal 0.2-2.0 [facility] Comment on above: Performed By: #### C BC ####[facility] Sywosykcro[address] [place], [place] [address]DrAdalberto Garima Heraclio EO # 0.3 103/ul Normal 0.0-0.7 [facility] Comment on above: Performed By: #### C BC ####[facility] Szhsaecirk34[address] [place], [place] [address]Dr. Chapisrenu Pulliam Eosinophils/100 WBC (Bld) 2.5 % Normal 0.9-7.0 [facility] Comment on above: Performed By: #### C BC ####[facility] Djavdmmagp[address] [place], [place] [address]DrAdalberto Garima Heraclio Erythrocyte distribution width (RBC) [Ratio] 13.2 % Normal 11.0-15.0 [facility] Comment on above: Performed By: #### C BC ####[facility] Fcoglwldem8996 [place] [address]Dr. Garima Pulliam Hematocrit (Bld) [Volume fraction] 45.8 % Normal 42.0-54.0 [facility] Comment on above: Performed By: #### C BC ####[facility] Jrwvxpzisz6118 [place] [address]Dr. Garima Heraclio Hemoglobin (Bld) [Mass/Vol] 15.3 g/dL Normal 14.0-18.0 [facility] Comment on above: Performed By: #### C BC ####[facility] Fwvmjhtpyj[address] [place], [place] [address]Dr. Garima Pulliam IG # 0.02 10e3/ul Normal 0.00-0.03 [facility] Comment on above: Performed By: #### C BC ####[facility] Ukbacchfeb[address] [place], [place] [address]Dr. Garima Pulliam IG % 0.2 % Normal 0.0-0.5 [facility] Comment on above: Performed By: #### C BC ####[facility] Utdagfnafq[address] [place], [place] [address]Dr. Chapisrenu Pulliam LYMPH # 1.8 103/ul Normal 1.2-3.8 [facility] Comment on above: Performed By: #### C BC ####[facility] Vtghdepvse[address] [place], [place] [address]Dr. Garima Pulliam Lymphocytes/100 WBC (Bld) 18.3 % Critically low 20.5-60.0 [facility] Comment on above: Performed By: #### C BC ####[facility] Mkccwxftxa[address] [place], [place] [address]Dr. Garima Pulliam MANUAL DIFF REQ NO Normal [facility] Comment on above: Performed By: #### C BC ####[facility] Lisveemihr0854 [place] [address]Dr. Garima Pulliam MCH (RBC) [Entitic mass] 30.5 pg Normal 25.9-34.0 [facility] Comment on above: Performed By: #### C BC ####[facility] Lnnkmlgpac9681 [place] [id number]. Garima Pulliam MCHC (RBC) [Mass/Vol] 33.4 g/dL Normal 29.9-35.2 [facility] Comment on above: Performed By: #### C BC ####[facility] Xplvxiltzl0230 [place] [id number]. Garima Pulliam MCV (RBC) [Entitic vol] 91.2 fL Normal 80.0-94.0 [facility] Comment on above: Performed By: #### C BC ####[facility] Whhtbpkivf5993 [place] [address]Dr. Garima Pulliam MONO # 0.8 103/ul Normal 0.3-0.8 [facility] Comment on above: Performed By: #### C BC ####[facility] Sfiwicpcnt1681 [place] [address]Dr. Garima Pulliam Monocytes/100 WBC (Bld) 7.6 % Normal 1.7-12.0 [facility] Comment on above: Performed By: #### C BC ####[facility] Tgqxofvtih[address] [place], [place] [address]Dr. Garima Pulliam NEUT # 7.0 103/ul Critically high 1.4-6.5 [facility] Comment on above: Performed By: #### C BC ####[facility] Aropnpowoj18[address] [place], [place] [address]Dr. Garima Pulliam Neutrophils/100 WBC (Bld) 71.2 % Normal 43.0-75.0 [facility] Comment on above: Performed By: #### C BC ####[facility] Ms[address]wjqc[address] [place], [place] [id number]. Garima Pulliam Platelet mean volume (Bld) [Entitic vol] 8.9 fL Critically low 9.5-13.5 [facility] Comment on above: Performed By: #### C BC ####[facility] [address]pue[address] [place], [place] [address]Dr. Garima Pulliam PLT 217 103/ul Normal 150-450 [facility] Comment on above: Performed By: #### C BC ####[facility] Qjoymyujfh2224 [place] [address]Dr. Garima Pulliam RBC 5.02 106/ul Normal 4.70-6.10 [facility] Comment on above: Performed By: #### C BC ####[facility] Mhfvrjboym7484 [place] [address]Dr. Garima Pulliam WBC 9.8 103/ul Normal 4.0-11.0 [facility] Comment on above: Performed By: #### C BC ####[facility] Amkoitucja[address] [place], [place] [address]DrAdalberto Pulliam CRPon 03-18-2023 CRP 0.1 mg/dL Normal <=1.0 [facility] Comment on above: Performed By: #### C RP ####[facility] L[address]mgvlwmwh[address] [place], [place] [address]DrAdalberto Pulliam PROF CHEM 8 (BAS METB)on Anion gap [Moles/Vol] 10.4 mmol/L Normal [facility] Comment on above: Performed By: #### B PSYCHOMETRICIAN, BMP ####[facility] Kdictcgrgk[address] [place], [place] [address]Dr. Garima Pulliam Calcium [Mass/Vol] 8.8 mg/dL Normal 8.5-10.1 [facility] Comment on above: Performed By: #### B PSYCHOMETRICIAN, BMP ####[facility] Mmohszoknq6896 [place] [address]Dr. Garima Pulliam Chloride [Moles/Vol] 97 mmol/L Critically low 98-107 [facility] Comment on above: Performed By: #### B PSYCHOMETRICIAN, BMP ####[facility] Nazccvaquj[address] [place], [place] [address]DrAdalberto Pulliam CO2 [Moles/Vol] 31.2 mmol/L Normal 21.0-32.0 [facility] Comment on above: Performed By: #### B PSYCHOMETRICIAN, BMP ####[facility] Ggkgrpakup[address] [place], [place] [address]Dr. Garima Pulliam Creatinine [Mass/Vol] 0.91 mg/dL Normal 0.70-1.30 [facility] Comment on above: Performed By: #### B PSYCHOMETRICIAN, BMP ####[facility] Fhmhceiwzh[address] [place] [address]Dr. Garima Heraclio EGFR-AF POLISH >60 Normal >=60 [facility] Comment on above: Performed By: #### B PSYCHOMETRICIAN, BMP ####[facility] Uisbxfxsir90[address] [place] [id number]. Garima Heraclio EGFR-NON AF POLISH >60 Normal >=60 [facility] Comment on above: Performed By: #### B PSYCHOMETRICIAN, BMP ####[facility] Lkarcaosqv9[address] [place], [place] [address]Dr. Garima Pulliam Glucose [Mass/Vol] 315 mg/dL Critically high 74-106 T [facility] Comment on above: Performed By: #### B PSYCHOMETRICIAN, BMP ####[facility] Zgiuaacjwg[address] [place], [place] [address]Dr. Garima Pulliam Potassium [Moles/Vol] 3.6 mmol/L Normal 3.5-5.1 [facility] Comment on above: Performed By: #### B PSYCHOMETRICIAN, BMP ####[facility] Sxvojowskb[address] [place], [place] [address]Dr. Garima Pulliam Sodium [Moles/Vol] 135 mmol/L Critically low 136-145 Th [facility] Comment on above: Performed By: #### B PSYCHOMETRICIAN, BMP ####[facility] Omomndyoqw[address] [place], [place] [address]Dr. Chapisrenu Heraclio Urea nitrogen [Mass/Vol] 7.0 mg/dL Normal 7.0-18.0 [facility] Comment on above: Performed By: #### B PSYCHOMETRICIAN, BMP ####[facility] Apvzyqmwtq[address] [place], [place] [address]Dr. Garima Pulliam Urea nitrogen/Creatinine [Mass ratio] 7.7 mg/mg Normal [facility] Comment on above: Performed By: #### B PSYCHOMETRICIAN, BMP ####[facility] Gfzmkynmxm[address] [place], [place] [address]Dr. Garima Pulliam SED RATE WESTERGRENon 2022 SED RATE 8 mm/hr Normal <=20 [facility] Comment on above: Performed By: #### S EDR ####[facility] Hzugjbnjpg[address] [place], [place] [address]Dr. Garima Pulliam BNPon 03-16-2023 Natriuretic peptide B (Bld) [Mass/Vol] 241.0 pg/mL Normal <=900.0 The [facility] Comment on above: Performed By: #### B PSYCHOMETRICIAN, BMP, HSTROPN ####[facility] Vqpsbtpnot[address] [place], [place] [address]Dr. Garima Pulliam CBC AUTO DIFFon 03-16-2023 BASO # 0.0 103/ul Normal 0.0-0.1 The [facility] Comment on above: Performed By: #### C BC ####[facility] Zpavqbecns[address] [place], [place] [address]Dr. Chapisrenu Pulliam Basophils/100 WBC (Bld) 0.2 % Normal 0.2-2.0 The [facility] Comment on above: Performed By: #### C BC ####[facility] Jzvveilwsy[address] [place], [place] [address]Dr. Garima Pulliam EO # 0.2 103/ul Normal 0.0-0.7 The [facility] Comment on above: Performed By: #### C BC ####[facility] Xntxoofnyt[address] [place], [place] [address]Dr. Garima Pulliam Eosinophils/100 WBC (Bld) 2.7 % Normal 0.9-7.0 The [facility] Comment on above: Performed By: #### C BC ####[facility] Cmetcrqpnz[address] [place], [place] [address]Dr. Garima Pulliam Erythrocyte distribution width (RBC) [Ratio] 13.1 % Normal 11.0-15.0 The [facility] Comment on above: Performed By: #### C BC ####[facility] Qrgukewswg[address] [place], [place] [address]Dr. Garima Pulliam Hematocrit (Bld) [Volume fraction] 41.8 % Critically low 42.0-54.0 The [facility] Comment on above: Performed By: #### C BC ####[facility] Ftshadypuu[address] [place] [address]Dr. Garima Pulliam Hemoglobin (Bld) [Mass/Vol] 14.0 g/dL Normal 14.0-18.0 [facility] Comment on above: Performed By: #### C BC ####[facility] Eblxqbocxi99[address] [place] [address]Dr. Garima Pulliam IG # 0.03 10e3/ul Normal 0.00-0.03 [facility] Comment on above: Performed By: #### C BC ####[facility] Mwrhnwopgh4451 [place] [address]Dr. Garima Pulliam IG % 0.3 % Normal 0.0-0.5 [facility] Comment on above: Performed By: #### C BC ####[facility] Bdgliftfiy6885 [place] [address]Dr. Chapisrenu Pulliam LYMPH # 2.1 103/ul Normal 1.2-3.8 The [facility] Comment on above: Performed By: #### C BC ####[facility] Iazndckmpp2199 [place] [address]Dr. Chapisrenu Pulliam Lymphocytes/100 WBC (Bld) 24.2 % Normal 20.5-60.0 [facility] Comment on above: Performed By: #### C BC ####[facility] Rapnzjgnyl9618 [place] [address]Dr. Garima Pulliam MANUAL DIFF REQ NO Normal [facility] Comment on above: Performed By: #### C BC ####[facility] Xilbzyzdnp89[address] [place] [phone]. Garima Pulliam MCH (RBC) [Entitic mass] 30.2 pg Normal 25.9-34.0 The [facility] Comment on above: Performed By: #### C BC ####[facility] Idmcoavoqj8363 [place] [phone]. Chapisrenu Pulliam MCHC (RBC) [Mass/Vol] 33.5 g/dL Normal 29.9-35.2 The [facility] Comment on above: Performed By: #### C BC ####[facility] Llidgybuom1107 [place] [phone]. Garima Pulliam MCV (RBC) [Entitic vol] 90.1 fL Normal 80.0-94.0 [facility] Comment on above: Performed By: #### C BC ####[facility] Fcdnesmjfj15[address] [place] [phone]. Garima Pulliam MONO # 0.6 103/ul Normal 0.3-0.8 The [facility] Comment on above: Performed By: #### C BC ####[facility] Lwfcjwjnhg1146 [place] [phone]. Garima Heraclio Monocytes/100 WBC (Bld) 7.4 % Normal 1.7-12.0 [facility] Comment on above: Performed By: #### C BC ####[facility] X[address] [place], [place] [id number]. Garima Pulliam NEUT # 5.6 103/ul Normal 1.4-6.5 [facility] Comment on above: Performed By: #### C BC ####[facility] Lx[address]zewse[address] [place], [place] [address]Dr. Garima Heraclio Neutrophils/100 WBC (Bld) 65.2 % Normal 43.0-75.0 [facility] Comment on above: Performed By: #### C BC ####[facility] Qjhkymkzga[address] [place], [place] [address]Dr. Garima Heraclio Platelet mean volume (Bld) [Entitic vol] 8.7 fL Critically low 9.5-13.5 The [facility] Comment on above: Performed By: #### C BC ####[facility] Qqxfsjgeel5501 [place] [phone]. Garima Heraclio PLT 195 103/ul Normal 150-450 The [facility] Comment on above: Performed By: #### C BC ####[facility] Sqhrumrtdo2649 [place] [phone]. Garima Pulliam RBC 4.64 106/ul Critically low 4.70-6.10 The [facility] Comment on above: Performed By: #### C BC ####[facility] Uwcgvethvf62[address] [place] [address]Dr. Garima Pulliam WBC 8.6 103/ul Normal 4.0-11.0 [facility] Comment on above: Performed By: #### C BC ####[facility] Isxdnoumfr2813 [place] [address]Dr. Garima Pulliam PROF CHEM 8 (BAS METB)on Anion gap [Moles/Vol] 6.7 mmol/L Normal [facility] Comment on above: Performed By: #### B PSYCHOMETRICIAN, BMP, HSTROPN ####[facility] Fwpmcoyaxr[address] [place], [place] [address]Dr. Garima Pulliam Calcium [Mass/Vol] 8.8 mg/dL Normal 8.5-10.1 [facility] Comment on above: Performed By: #### B PSYCHOMETRICIAN, BMP, HSTROPN ####[facility] Lsuuemjhvl[address] [place], [place] [address]Dr. Garima Pulliam Chloride [Moles/Vol] 106 mmol/L Normal 98-107 The [facility] Comment on above: Performed By: #### B PSYCHOMETRICIAN, BMP, HSTROPN ####[facility] Heocmwlhex[address] [place], [place] [address]Dr. Garima Pulliam CO2 [Moles/Vol] 31.4 mmol/L Normal 21.0-32.0 [facility] Comment on above: Performed By: #### B PSYCHOMETRICIAN, BMP, HSTROPN ####[facility] Axdueusawh8[address] [place], [place] [address]Dr. Garima Pulliam Creatinine [Mass/Vol] 0.75 mg/dL Normal 0.70-1.30 The [facility] Comment on above: Performed By: #### B PSYCHOMETRICIAN, BMP, HSTROPN ####[facility] Zsykkyogxs[address] [place], [place] [address]Dr. Garima Pulliam EGFR-AF POLISH >60 Normal >=60 [facility] Comment on above: Performed By: #### B PSYCHOMETRICIAN, BMP, HSTROPN ####[facility] Ctyfirzeic[address] [place] [address]Dr. aGrima Pulliam EGFR-NON AF POLISH >60 Normal >=60 [facility] Comment on above: Performed By: #### B PSYCHOMETRICIAN, BMP, HSTROPN ####[facility] Bhvudxqrfo4512 [place] [address]Dr. Garima Pulliam Glucose [Mass/Vol] 161 mg/dL Critically high 74-106 T [facility] Comment on above: Performed By: #### B PSYCHOMETRICIAN, BMP, HSTROPN ####[facility] Vuuzmqgchy6958 [place] [address]Dr. Garima Pulliam Potassium [Moles/Vol] 4.1 mmol/L Normal 3.5-5.1 [facility] Comment on above: Performed By: #### B PSYCHOMETRICIAN, BMP, HSTROPN ####[facility] Ymoormpifh76[address] [place] [address]Dr. Garima Pulliam Sodium [Moles/Vol] 140 mmol/L Normal 136-145 [facility] Comment on above: Performed By: #### B PSYCHOMETRICIAN, BMP, HSTROPN ####[facility] Ztqvwbbqyl0886 [place] [address]Dr. Garima Pulliam Urea nitrogen [Mass/Vol] 7.0 mg/dL Normal 7.0-18.0 [facility] Comment on above: Performed By: #### B PSYCHOMETRICIAN, BMP, HSTROPN ####[facility] Qiuueppyad3202 [place] [address]Dr. Garima Pulliam Urea nitrogen/Creatinine [Mass ratio] 9.3 mg/mg Normal [facility] Comment on above: Performed By: #### B PSYCHOMETRICIAN, BMP, HSTROPN ####[facility] Jccjqgwqwi[address] [place], [place] [address]Dr. Garima Pulliam TROPONIN, HIGH SENSITIVITYon 03-16-2023 HSTROP 9.7 pg/mL Normal 4.0-76.1 [facility] Comment on above: Result Comment: CUT- OFF POINTS HAVE BEEN ESTABLISHED BASED ON THE FOURTH UNIVERSAL DEFINITIONS OF MYOCARDIALINFARCTION. THE UPPER REFERENCE LIMIT (URL) OF TROPONIN, DEFINED THE 99TH PERCENTILE OFcTnI DISTRIBUTION IN A REFERENCE POPULATION, HAS BEEN CONFIRMED THE DECISION THRESHOLDFOR MN DIAGNOSIS. Performed By: #### B PSYCHOMETRICIAN, BMP, HSTROPN ####[facility] Iimfistihb0648 [place] [address]Dr. Garima Pulliam XR CHEST 1 Von 03-16-2023 XR CHEST 1 V Normal The [facility] BNPon 03-06-2023 Natriuretic peptide B (Bld) [Mass/Vol] 111.0 pg/mL Normal <=900.0 [facility] Comment on above: Performed By: #### C MP, BNP, CK ####[facility] Ntzxmxgrpg0157 [place] [address]Dr. Chapisrenu Pulliam CBC AUTO DIFFon 03-06-2023 BASO # 0.0 103/ul Normal 0.0-0.1 [facility] Comment on above: Performed By: #### C BC ####[facility] Xrupfoxptw[address] [place], [place] [address]Dr. Garima Pulliam Basophils/100 WBC (Bld) 0.2 % Normal 0.2-2.0 [facility] Comment on above: Performed By: #### C BC ####[facility] C[address]tykd[address] [place], [place] [address]Dr. Garima Heraclio EO # 0.3 103/ul Normal 0.0-0.7 The [facility] Comment on above: Performed By: #### C BC ####[facility] Vkijfecjts[address] [place], [place] [address]Dr. Garima Pulliam Eosinophils/100 WBC (Bld) 3.5 % Normal 0.9-7.0 The [facility] Comment on above: Performed By: #### C BC ####[facility] Bjnkkgwrzy020[address] [place], [place] [address]Dr. Chapisrenu Pulliam Erythrocyte distribution width (RBC) [Ratio] 13.3 % Normal 11.0-15.0 The [facility] Comment on above: Performed By: #### C BC ####[facility] Nahhdrvpsy[address] [place], [place] [address]Dr. Garima Pulliam Hematocrit (Bld) [Volume fraction] 43.7 % Normal 42.0-54.0 [facility] Comment on above: Performed By: #### C BC ####[facility] Xndmmivpoj2785 [place] [address]Dr. Garima Pulliam Hemoglobin (Bld) [Mass/Vol] 14.7 g/dL Normal 14.0-18.0 [facility] Comment on above: Performed By: #### C BC ####[facility] Cknsxtsqod5164 [place] [address]Dr. Garima Pulliam IG # 0.03 10e3/ul Normal 0.00-0.03 [facility] Comment on above: Performed By: #### C BC ####[facility] Ywfuvkvpqo3851 [place] [address]Dr. Garima Pulliam IG % 0.4 % Normal 0.0-0.5 [facility] Comment on above: Performed By: #### C BC ####[facility] Anudfbtfnh[address] [place], [place] [address]Dr. Garima Heraclio LYMPH # 2.0 103/ul Normal 1.2-3.8 [facility] Comment on above: Performed By: #### C BC ####[facility] Mqobicjuaw86[address] [place], [place] [address]Dr. Chapisrenu Pulliam Lymphocytes/100 WBC (Bld) 23.7 % Normal 20.5-60.0 [facility] Comment on above: Performed By: #### C BC ####[facility] Ubdpypwevf9508 [place] [address]Dr. Chapisrenu Pulliam MANUAL DIFF REQ NO Normal [facility] Comment on above: Performed By: #### C BC ####[facility] Ntuaurscej9114 [place] [address]Dr. Garima Pulliam MCH (RBC) [Entitic mass] 30.1 pg Normal 25.9-34.0 [facility] Comment on above: Performed By: #### C BC ####[facility] Qajizlzkuw5235 [place] [address]Dr. Garima Pulliam MCHC (RBC) [Mass/Vol] 33.6 g/dL Normal 29.9-35.2 The [facility] Comment on above: Performed By: #### C BC ####[facility] Cnrpijvakd4751 [place] [phone]. Garima Pulliam MCV (RBC) [Entitic vol] 89.4 fL Normal 80.0-94.0 The [facility] Comment on above: Performed By: #### C BC ####[facility] Rqmwrxdwse3324 [place] [address]Dr. Garima Pulliam MONO # 0.8 103/ul Normal 0.3-0.8 [facility] Comment on above: Performed By: #### C BC ####[facility] Abxelrfxyt9577 [place] [address]Dr. Chapisrenu Pulliam Monocytes/100 WBC (Bld) 9.0 % Normal 1.7-12.0 The [facility] Comment on above: Performed By: #### C BC ####[facility] Vtwrcjjbik[address] [place], [place] [address]Dr. Garima Pulliam NEUT # 5.4 103/ul Normal 1.4-6.5 [facility] Comment on above: Performed By: #### C BC ####[facility] Tcoqbkenza[address] [place], [place] [address]Dr. Chapisrenu Pulliam Neutrophils/100 WBC (Bld) 63.2 % Normal 43.0-75.0 The [facility] Comment on above: Performed By: #### C BC ####[facility] Wjgnhhquio6[address] [place], [place] [address]Dr. Garima Pulliam Platelet mean volume (Bld) [Entitic vol] 9.0 fL Critically low 9.5-13.5 The [facility] Comment on above: Performed By: #### C BC ####[facility] [address]qhds[address] [place], [place] [address]Dr. Garima Pulliam PLT 218 103/ul Normal 150-450 The [facility] Comment on above: Performed By: #### C BC ####[facility] Wmpbumpooo[address] [place], [place] [address]Dr. Garima Pulliam RBC 4.89 106/ul Normal 4.70-6.10 The [facility] Comment on above: Performed By: #### C BC ####[facility] Ytgwbruulf1804 [place] [address]Dr. Garima Pulliam WBC 8.5 103/ul Normal 4.0-11.0 [facility] Comment on above: Performed By: #### C BC ####[facility] Psqavtmvtc4990 [place] [address]Dr. Garima Pulliam CPKon 03-06-2023 CK [Catalytic activity/Vol] 191 U/L Normal 39-308 [facility] Comment on above: Performed By: #### C MP, BNP, CK ####[facility] Sqshbqbyse1152 [place] [address]Dr. Garima Pluliam PROF 14(COMP METB)on 023 Albumin [Mass/Vol] 3.6 g/dL Normal 3.4-5.0 [facility] Comment on above: Performed By: #### C MP, BNP, CK ####[facility] Skmrkhjdjf9894 [place] [address]Dr. Garima Pulliam Albumin/Globulin [Mass ratio] 1.2 {ratio} Normal [facility] Comment on above: Performed By: #### C MP, BNP, CK ####[facility] Lyopxbtavq9498 [place] [address]Dr. Garima Pulliam ALP [Catalytic activity/Vol] 91 U/L Normal 46-116 [facility] Comment on above: Performed By: #### C MP, BNP, CK ####[facility] Ndcrjwgcyr7717 [place] [address]Dr. Garima Pulliam ALT [Catalytic activity/Vol] 33 U/L Normal 16-63 [facility] Comment on above: Performed By: #### C MP, BNP, CK ####[facility] Rtkehiuqod8432 [place] [address]Dr. Garima Pulliam Anion gap [Moles/Vol] 10.3 mmol/L Normal [facility] Comment on above: Performed By: #### C MP, BNP, CK ####[facility] Xophiqvibv9407 [place] [address]Dr. aGrima Pulliam AST [Catalytic activity/Vol] 17 U/L Normal 15-37 The [facility] Comment on above: Performed By: #### C MP, BNP, CK ####[facility] Qumjzzxxcg3156 [place] [address]Dr. Garima Pulliam Bilirubin [Mass/Vol] 0.4 mg/dL Normal 0.2-1.0 [facility] Comment on above: Performed By: #### C MP, BNP, CK ####[facility] Plkowganwj9135 [place] [address]Dr. Garima Pulliam Calcium [Mass/Vol] 9.1 mg/dL Normal 8.5-10.1 [facility] Comment on above: Performed By: #### C MP, BNP, CK ####[facility] Txllgcblfo3153 [place] [address]Dr. Garima Pulliam Chloride [Moles/Vol] 102 mmol/L Normal 98-107 [facility] Comment on above: Performed By: #### C MP, BNP, CK ####[facility] Tgnpqxlaze8346 [place] [address]Dr. Garima Pulliam CO2 [Moles/Vol] 29.7 mmol/L Normal 21.0-32.0 [facility] Comment on above: Performed By: #### C MP, BNP, CK ####[facility] Ersxulevvu1688 [place] [address]Dr. Garima Pulliam Creatinine [Mass/Vol] 0.79 mg/dL Normal 0.70-1.30 [facility] Comment on above: Performed By: #### C MP, BNP, CK ####[facility] Nkgqkgmznr6870 [place] [address]Dr. Garima Pulliam EGFR-AF POLISH >60 Normal >=60 [facility] Comment on above: Performed By: #### C MP, BNP, CK ####[facility] Qvmbbcploi1593 [place] [address]Dr. Garima Pulliam EGFR-NON AF POLISH >60 Normal >=60 [facility] Comment on above: Performed By: #### C MP, BNP, CK ####[facility] Pdwmceikdu9018 [place] [address]Dr. Garima Pulliam Globulin (S) [Mass/Vol] 3.0 g/dL Normal [facility] Comment on above: Performed By: #### C MP, BNP, CK ####[facility] Nbxbduirrs7845 [place] [address]Dr. Garima Pulliam Glucose [Mass/Vol] 202 mg/dL Critically high 74-106 T [facility] Comment on above: Performed By: #### C MP, BNP, CK ####[facility] Klwlnzysye3208 [place] [address]Dr. Garima Heraclio Potassium [Moles/Vol] 4.0 mmol/L Normal 3.5-5.1 [facility] Comment on above: Performed By: #### C MP, BNP, CK ####[facility] Lwmdqwirtm[address] [place], [place] [address]Dr. Chapisrenu Pulliam Protein [Mass/Vol] 6.6 g/dL Normal 6.4-8.2 [facility] Comment on above: Performed By: #### C MP, BNP, CK ####[facility] Ulmrnqgzei[address] [place], [place] [address]Dr. Garima Heraclio Sodium [Moles/Vol] 138 mmol/L Normal 136-145 [facility] Comment on above: Performed By: #### C MP, BNP, CK ####[facility] Pcwecmrfus[address] [place], [place] [address]Dr. Garima Heraclio Urea nitrogen [Mass/Vol] 10.0 mg/dL Normal 7.0-18.0 [facility] Comment on above: Performed By: #### C MP, BNP, CK ####[facility] Hsyjygupox7671 [place] [address]Dr. Garima Pulliam Urea nitrogen/Creatinine [Mass ratio] 12.7 mg/mg Normal [facility] Comment on above: Performed By: #### C MP, BNP, CK ####[facility] Avxjunpqzh0496 [place] [address]Dr. Garima Pulliam US VERONICA DOP LEG BILon 023 US VERONICA DOP LEG BENOIT Normal [facility] CBC AUTO DIFFon 01-13-2023 BASO # 0.0 103/ul Normal 0.0-0.1 [facility] Comment on above: Performed By: #### C BC ####[facility] Poobronbze7[address] [place] [address]Dr. Garima Pulliam Basophils/100 WBC (Bld) 0.0 % Critically low 0.2-2.0 [facility] Comment on above: Performed By: #### C BC ####[facility] Umzttzrjca7579 [place] [address]Dr. Garima Pulliam EO # 0.0 103/ul Normal 0.0-0.7 [facility] Comment on above: Performed By: #### C BC ####[facility] Wwdfrbpkbj8432 [place] [address]Dr. Garima Pulliam Eosinophils/100 WBC (Bld) 0.0 % Critically low 0.9-7.0 [facility] Comment on above: Performed By: #### C BC ####[facility] Kgwrjebavn9517 [place] [address]Dr. Garima Pulliam Erythrocyte distribution width (RBC) [Ratio] 13.2 % Normal 11.0-15.0 [facility] Comment on above: Performed By: #### C BC ####[facility] Oyurgowfgt4966 [place] [address]Dr. Garima Pulliam Hematocrit (Bld) [Volume fraction] 46.7 % Normal 42.0-54.0 [facility] Comment on above: Performed By: #### C BC ####[facility] Arsjqxejew5304 [place] [address]Dr. Garima Pulliam Hemoglobin (Bld) [Mass/Vol] 15.6 g/dL Normal 14.0-18.0 [facility] Comment on above: Performed By: #### C BC ####[facility] Kgzzcovruw2990 [place] [address]Dr. Chapisrenu Heraclio IG # 0.01 10e3/ul Normal 0.00-0.03 [facility] Comment on above: Performed By: #### C BC ####[facility] Xywklnkjcr7756 [place] [id number]. Garima Pulliam IG % 0.2 % Normal 0.0-0.5 [facility] Comment on above: Performed By: #### C BC ####[facility] Pedbhnfgdv4629 [place] [phone]. Garima Pulliam LYMPH # 0.8 103/ul Critically low 1.2-3.8 [facility] Comment on above: Performed By: #### C BC ####[facility] Cjsxujzlib1412 [place] [id number]. Garima Pulliam Lymphocytes/100 WBC (Bld) 12.7 % Critically low 20.5-60.0 The [facility] Comment on above: Performed By: #### C BC ####[facility] Fopwljjdmm0336 [place] [id number]. Garima Pulliam MANUAL DIFF REQ NO Normal The [facility] Comment on above: Performed By: #### C BC ####[facility] Pqzcapaojf6996 [place] [id number]. Garima Pulliam MCH (RBC) [Entitic mass] 30.2 pg Normal 25.9-34.0 The [facility] Comment on above: Performed By: #### C BC ####[facility] Mxpngumnjr4808 [place] [id number]. Garima Pulliam MCHC (RBC) [Mass/Vol] 33.4 g/dL Normal 29.9-35.2 The [facility] Comment on above: Performed By: #### C BC ####[facility] Mcuywpklwv4088 [place] [id number]. Garima Pulliam MCV (RBC) [Entitic vol] 90.3 fL Normal 80.0-94.0 The [facility] Comment on above: Performed By: #### C BC ####[facility] Nrkyjkrida9171 [place] [id number]. Garima Pulliam MONO # 0.1 103/ul Critically low 0.3-0.8 The [facility] Comment on above: Performed By: #### C BC ####[facility] Giefczfhfc9113 [place] [id number]. Garima Pulliam Monocytes/100 WBC (Bld) 0.9 % Critically low 1.7-12.0 The [facility] Comment on above: Performed By: #### C BC ####[facility] Cegzfcafuh3094 [place] [id number]. Garima Pulliam NEUT # 5.6 103/ul Normal 1.4-6.5 The [facility] Comment on above: Performed By: #### C BC ####[facility] Snmeqhopry4063 [place] [id number]. Garima Pulliam Neutrophils/100 WBC (Bld) 86.2 % Critically high 43.0-75.0 The [facility] Comment on above: Performed By: #### C BC ####[facility] Lncrlbjkgg7083 [place] [address]Dr. Garima Pulliam Platelet mean volume (Bld) [Entitic vol] 9.1 fL Critically low 9.5-13.5 The [facility] Comment on above: Performed By: #### C BC ####[facility] Yttvsookdl2364 [place] [phone]. Garima Pulliam PLT 169 103/ul Normal 150-450 The [facility] Comment on above: Performed By: #### C BC ####[facility] Zmlshtdbhr7799 [place] [phone]. Garima Pulliam RBC 5.17 106/ul Normal 4.70-6.10 The [facility] Comment on above: Performed By: #### C BC ####[facility] U[address]uzx[address] [place], [place] [id number]. Garima Pulliam WBC 6.5 103/ul Normal 4.0-11.0 The [facility] Comment on above: Performed By: #### C BC ####[facility] Wgbtkvphaw2174 [place] [address]Dr. Garima Pulliam D-DIMERon 01-13-2023 D-DIMER 0.41 mg/L FEU Normal <=0.59 The [facility] Comment on above: Performed By: #### D DIM ####[facility] Ewdxfbablc7118 [place] [address]Dr. Garima Pulliam D-DIMER COMMENTS SEE BELOW Normal [facility] Comment on above: Result Comment: Incr [...] generalized hospitalization. Performed By: #### D DIM ####[facility] Dsfydxniuo[address] [place], [place] [address]Dr. Garima Pulliam PROF 14(COMP METB)on 023 Albumin [Mass/Vol] 3.4 g/dL Normal 3.4-5.0 [facility] Comment on above: Performed By: #### C MP ####[facility] Evymyxwoab[address] [place], [place] [address]Dr. Garima Pulliam Albumin/Globulin [Mass ratio] 1.3 {ratio} Normal [facility] Comment on above: Performed By: #### C MP ####[facility] Xcalnwqdny[address] [place], [place] [address]Dr. Garima Pulliam ALP [Catalytic activity/Vol] 83 U/L Normal 46-116 The [facility] Comment on above: Performed By: #### C MP ####[facility] Lsmvjhgztk9012 [place] [address]Dr. Garima Pulliam ALT [Catalytic activity/Vol] 25 U/L Normal 16-63 [facility] Comment on above: Performed By: #### C MP ####[facility] Ltivoatnub5155 [place] [address]Dr. Garima Pulliam Anion gap [Moles/Vol] 14.5 mmol/L Normal [facility] Comment on above: Performed By: #### C MP ####[facility] Xvwmyhszfx18[address] [place], [place] [address]Dr. Garima Pulliam AST [Catalytic activity/Vol] 19 U/L Normal 15-37 [facility] Comment on above: Performed By: #### C MP ####[facility] Rnwrytsqaj384[address] [place], [place] [address]Dr. Garima Pulilam Bilirubin [Mass/Vol] 0.4 mg/dL Normal 0.2-1.0 [facility] Comment on above: Performed By: #### C MP ####[facility] Prfxmpkita[address] [place], [place] [address]Dr. Garima Pulliam Calcium [Mass/Vol] 8.7 mg/dL Normal 8.5-10.1 [facility] Comment on above: Performed By: #### C MP ####[facility] Cxztxlpmae[address] [place], [place] [address]Dr. Garima Pulliam Chloride [Moles/Vol] 104 mmol/L Normal 98-107 [facility] Comment on above: Performed By: #### C MP ####[facility] Dsutswotkr[address] [place], [place] [address]Dr. Garima Pulliam CO2 [Moles/Vol] 24.5 mmol/L Normal 21.0-32.0 [facility] Comment on above: Performed By: #### C MP ####[facility] Syzlljuidf34[address] [place], [place] [address]Dr. Garima Pulliam Creatinine [Mass/Vol] 0.70 mg/dL Normal 0.70-1.30 [facility] Comment on above: Performed By: #### C MP ####[facility] Vywpzcblvl[address] [place], [place] [address]Dr. Garima Heraclio EGFR-AF POLISH >60 Normal >=60 [facility] Comment on above: Performed By: #### C MP ####[facility] Usemqvlaoc269[address] [place], [place] [address]Dr. Chapisrenu Heraclio EGFR-NON AF POLISH >60 Normal >=60 The [facility] Comment on above: Performed By: #### C MP ####[facility] Blcqczwrss5024[address] [place], [place] [address]Dr. Garima Heraclio Globulin (S) [Mass/Vol] 2.6 g/dL Normal [facility] Comment on above: Performed By: #### C MP ####[facility] Gctodvwspn2831 [place] [address]Dr. Garima Pulliam Glucose [Mass/Vol] 196 mg/dL Critically high 74-106 T [facility] Comment on above: Performed By: #### C MP ####[facility] Sxgedvhoxj7872 [place] [address]Dr. Garima Heraclio Potassium [Moles/Vol] 4.0 mmol/L Normal 3.5-5.1 [facility] Comment on above: Performed By: #### C MP ####[facility] Hhzfbbopmy[address] [place], [place] [address]Dr. Garima Heraclio Protein [Mass/Vol] 6.0 g/dL Critically low 6.4-8.2 Th [facility] Comment on above: Performed By: #### C MP ####[facility] Xlzetcglbw25[address] [place], [place] [address]Dr. Garima Heraclio Sodium [Moles/Vol] 139 mmol/L Normal 136-145 [facility] Comment on above: Performed By: #### C MP ####[facility] Tlkquwzlxj27[address] [place], [place] [address]Dr. Garima Heraclio Urea nitrogen [Mass/Vol] 7.0 mg/dL Normal 7.0-18.0 [facility] Comment on above: Performed By: #### C MP ####[facility] Llkohxppra[address] [place], [place] [address]Dr. Garima Heraclio Urea nitrogen/Creatinine [Mass ratio] 10.0 mg/mg Normal [facility] Comment on above: Performed By: #### C MP ####[facility] Fmhbbwfkms[address] [place], [place] [address]Dr. Garima Pulliam BNPon 01-12-2023 Natriuretic peptide B (Bld) [Mass/Vol] 141.0 pg/mL Normal <=900.0 [facility] Comment on above: Performed By: #### C MP, BNP, HSTROPN ####[facility] Stwbrglczk[address] [place], [place] [address]Dr. Garima Pulliam CBC AUTO DIFFon 01-12-2023 BASO # 0.0 103/ul Normal 0.0-0.1 The [facility] Comment on above: Performed By: #### C BC ####[facility] Cxceomzamv34[address] [place], [place] [address]Dr. Garima Heraclio Basophils/100 WBC (Bld) 0.2 % Normal 0.2-2.0 The [facility] Comment on above: Performed By: #### C BC ####[facility] Zpzvouvvba8[address] [place], [place] [address]Dr. Garima Pulliam EO # 0.2 103/ul Normal 0.0-0.7 The [facility] Comment on above: Performed By: #### C BC ####[facility] Mkuxcnjgni[address] [place], [place] [address]Dr. Garima Pulliam Eosinophils/100 WBC (Bld) 2.7 % Normal 0.9-7.0 The [facility] Comment on above: Performed By: #### C BC ####[facility] Hfovrnvyft93[address] [place], [place] [address]Dr. Chapisrenu Pulliam Erythrocyte distribution width (RBC) [Ratio] 13.3 % Normal 11.0-15.0 The [facility] Comment on above: Performed By: #### C BC ####[facility] Ajfomjiumm[address] [place], [place] [address]Dr. Garima Pulliam Hematocrit (Bld) [Volume fraction] 42.3 % Normal 42.0-54.0 The [facility] Comment on above: Performed By: #### C BC ####[facility] Ggrlhnszdf[address] [place], [place] [address]Dr. Garima Pulliam Hemoglobin (Bld) [Mass/Vol] 14.3 g/dL Normal 14.0-18.0 The [facility] Comment on above: Performed By: #### C BC ####[facility] Qgaydxpykq93[address] [place], [place] [address]Dr. Garima Pulliam IG # 0.02 10e3/ul Normal 0.00-0.03 The [facility] Comment on above: Performed By: #### C BC ####[facility] Jvsbydvxdh8640 [place] [id number]. Garima Pulliam IG % 0.2 % Normal 0.0-0.5 The [facility] Comment on above: Performed By: #### C BC ####[facility] Wnzavhrawh2321 [place] [address]Dr. Garima Pulliam LYMPH # 2.6 103/ul Normal 1.2-3.8 The [facility] Comment on above: Performed By: #### C BC ####[facility] Cmjgxohylx4596 [place] [address]Dr. Garima Pulliam Lymphocytes/100 WBC (Bld) 29.6 % Normal 20.5-60.0 The [facility] Comment on above: Performed By: #### C BC ####[facility] Rekraftbsg[address] [place], [place] [address]Dr. Garima Pulliam MANUAL DIFF REQ NO Normal The [facility] Comment on above: Performed By: #### C BC ####[facility] Uhnedescth9686 [place] [address]Dr. Garima Heraclio MCH (RBC) [Entitic mass] 30.2 pg Normal 25.9-34.0 The [facility] Comment on above: Performed By: #### C BC ####[facility] Xqsriypwwf[address] [place], [place] [address]Dr. Garima Heraclio MCHC (RBC) [Mass/Vol] 33.8 g/dL Normal 29.9-35.2 The [facility] Comment on above: Performed By: #### C BC ####[facility] Mmblgapcpa0108 [place] [address]Dr. Garima Pulliam MCV (RBC) [Entitic vol] 89.2 fL Normal 80.0-94.0 The [facility] Comment on above: Performed By: #### C BC ####[facility] Fxiisdnqik[address] [place], [place] [address]Dr. Garima Pulliam MONO # 0.7 103/ul Normal 0.3-0.8 The [facility] Comment on above: Performed By: #### C BC ####[facility] Etufbtqula[address] [place], [place] [address]Dr. Garima Pulliam Monocytes/100 WBC (Bld) 8.3 % Normal 1.7-12.0 The [facility] Comment on above: Performed By: #### C BC ####[facility] Svgtadtwxa2242 [place] [address]Dr. Garima Pulliam NEUT # 5.1 103/ul Normal 1.4-6.5 The [facility] Comment on above: Performed By: #### C BC ####[facility] Utynbvbgnl6041 [place] [address]Dr. Garima Pulliam Neutrophils/100 WBC (Bld) 59.0 % Normal 43.0-75.0 The [facility] Comment on above: Performed By: #### C BC ####[facility] Sfkcjphmlu6881 [place] [address]Dr. Garima Pulliam Platelet mean volume (Bld) [Entitic vol] 8.7 fL Critically low 9.5-13.5 The [facility] Comment on above: Performed By: #### C BC ####[facility] Xczlwrsgps7980 [place] [address]Dr. Garima Pulliam PLT 182 103/ul Normal 150-450 The [facility] Comment on above: Performed By: #### C BC ####[facility] Spbtoulowx4855 [place] [address]Dr. Garima Pulliam RBC 4.74 106/ul Normal 4.70-6.10 The [facility] Comment on above: Performed By: #### C BC ####[facility] Yhrouasusr9[address] [place], [place] [address]Dr. Garima Pulliam WBC 8.7 103/ul Normal 4.0-11.0 The [facility] Comment on above: Performed By: #### C BC ####[facility] Nrxcggatbo[address] [place], [place] [address]Dr. Garima Pulliam [facility]on [facility]-25 SARS-CoV-2 (COVID-19) RNA MARIE+probe Ql (Unsp spec) Not detected Normal NOT DETECTED The [facility] Comment on above: Result Comment: When [...] for this test is supported by the [employer] Installer of Health and Human Service's declaration that [...] be used). Performed By: #### C VDTBH ####[facility] Tkpjrkkkhc8099 [place] [address]Dr. Garima Pulliam PROF 14(COMP METB)on 023 Albumin [Mass/Vol] 3.6 g/dL Normal 3.4-5.0 [facility] Comment on above: Performed By: #### C MP, BNP, HSTROPN ####[facility] Flwjbexfnk[address] [place], [place] [address]Dr. Garima Pulliam Albumin/Globulin [Mass ratio] 1.5 {ratio} Normal [facility] Comment on above: Performed By: #### C MP, BNP, HSTROPN ####[facility] Cajgimkgrb[address] [place], [place] [address]Dr. Garima Pulliam ALP [Catalytic activity/Vol] 79 U/L Normal 46-116 The [facility] Comment on above: Performed By: #### C MP, BNP, HSTROPN ####[facility] Bjytatyztp4[address] [place], [place] [address]Dr. Garima Pulliam ALT [Catalytic activity/Vol] 27 U/L Normal 16-63 [facility] Comment on above: Performed By: #### C MP, BNP, HSTROPN ####[facility] Segczmgtsb3673 [place] [address]DrAdalberto Pulliam Anion gap [Moles/Vol] 11.7 mmol/L Normal Th e [facility] Comment on above: Performed By: #### C MP, BNP, HSTROPN ####[facility] Qixrdkbnxi2806 [place] [address]Dr. Garima Pulliam AST [Catalytic activity/Vol] 21 U/L Normal 15-37 The [facility] Comment on above: Performed By: #### C MP, BNP, HSTROPN ####[facility] Xwwkrcybdz8631 [place] [address]Dr. Garima Pulliam Bilirubin [Mass/Vol] 0.3 mg/dL Normal 0.2-1.0 [facility] Comment on above: Performed By: #### C MP, BNP, HSTROPN ####[facility] Fwibzmhtbm[address] [place], [place] [address]Dr. Garima Pulliam Calcium [Mass/Vol] 8.9 mg/dL Normal 8.5-10.1 [facility] Comment on above: Performed By: #### C MP, BNP, HSTROPN ####[facility] Rohcjmydgb8[address] [place], [place] [address]Dr. Garima Pulliam Chloride [Moles/Vol] 107 mmol/L Normal 98-107 [facility] Comment on above: Performed By: #### C MP, BNP, HSTROPN ####[facility] Fkumeiniqa4339 [place] [address]Dr. Garima Pulliam CO2 [Moles/Vol] 26.0 mmol/L Normal 21.0-32.0 [facility] Comment on above: Performed By: #### C MP, BNP, HSTROPN ####[facility] Gyalhnvcoj3[address] [place], [place] [address]Dr. Garima Pulliam Creatinine [Mass/Vol] 0.65 mg/dL Critically low 0.70-1.30 [facility] Comment on above: Performed By: #### C MP, BNP, HSTROPN ####[facility] Uitqphasxp7902 [place] [address]Dr. Garima Pulliam EGFR-AF POLISH >60 Normal >=60 [facility] Comment on above: Performed By: #### C MP, BNP, HSTROPN ####[facility] Sbxoqtqtjk8381 [place] [address]Dr. Garima Pulliam EGFR-NON AF POLISH >60 Normal >=60 [facility] Comment on above: Performed By: #### C MP, BNP, HSTROPN ####[facility] Xmmzhzwsqs6706 [place] [address]Dr. Garima Pulliam Globulin (S) [Mass/Vol] 2.4 g/dL Normal [facility] Comment on above: Performed By: #### C MP, BNP, HSTROPN ####[facility] Fsmafzwqci[address] [place], [place] [address]Dr. Garima Pulliam Glucose [Mass/Vol] 85 mg/dL Normal 74-106 [facility] Comment on above: Performed By: #### C MP, BNP, HSTROPN ####[facility] Dghfiuahmz[address] [place], [place] [address]Dr. Garima Pulliam Potassium [Moles/Vol] 3.7 mmol/L Normal 3.5-5.1 [facility] Comment on above: Performed By: #### C MP, BNP, HSTROPN ####[facility] V[address]azgkmcyb98[address] [place], [place] [address]Dr. Garima Pulliam Protein [Mass/Vol] 6.0 g/dL Critically low 6.4-8.2 Th [facility] Comment on above: Performed By: #### C MP, BNP, HSTROPN ####[facility] Gluhoflagm[address] [place], [place] [address]Dr. Garima Pulliam Sodium [Moles/Vol] 141 mmol/L Normal 136-145 The [facility] Comment on above: Performed By: #### C MP, BNP, HSTROPN ####[facility] J[address]xyaqdzmz[address] [place], [place] [address]Dr. Garima Pulliam Urea nitrogen [Mass/Vol] 5.0 mg/dL Critically low 7.0-18.0 [facility] Comment on above: Performed By: #### C MP, BNP, HSTROPN ####[facility] Ycyqldxmtl8751 [place] [address]Dr. Garima Pulliam Urea nitrogen/Creatinine [Mass ratio] 7.7 mg/mg Normal The [facility] Comment on above: Performed By: #### C MP, BNP, HSTROPN ####[facility] Ipkremlwcd2068 [place] [address]Dr. Garima Pulliam PROTIMEon 01-12-2023 INR Coag (PPP) [Relative time] 1.16 {INR} Normal The [facility] Comment on above: Performed By: #### P TT, PT ####[facility] Sxdvsigkkh[address] [place], [place] [address]Dr. Garima Pulliam INR GUIDELINES SEE BELOW Normal [facility] Comment on above: Result Comment: WESLEY RED INR: 2.0 - 3.0 CONDITIONS NOT LISTED BELOW 2.5 - 3.5 FOR PROSTHETIC HEART VALVE REPLACEMENT 2.5 - 3.5 RECURRENT THROMBOSIS Performed By: #### P TT, PT ####[facility] Fuljnnergw[address] [place], [place] [address]Dr. Garima Pulliam PT Coag (PPP) [Time] 12.2 s Critically high 9.0-11.6 The [facility] Comment on above: Performed By: #### P TT, PT ####[facility] [address]yurrhmatu[address] [place], [place] [address]Dr. Garima Pulliam PTTon 01-12-2023 aPTT Coag (Bld) [Time] 29.1 s Normal 22.3-36.2 The [facility] Comment on above: Performed By: #### P TT, PT ####[facility] Fnywwgxblh[address] [place], [place] [address]Dr. Gariam Pulliam TROPONIN, HIGH SENSITIVITYon 01-12-2023 HSTROP 10.3 pg/mL Normal 4.0-76.1 The [facility] Comment on above: Result Comment: CUT- OFF POINTS HAVE BEEN ESTABLISHED BASED ON THE FOURTH UNIVERSAL DEFINITIONS OF MYOCARDIALINFARCTION. THE UPPER REFERENCE LIMIT (URL) OF TROPONIN, DEFINED THE 99TH PERCENTILE OFcTnI DISTRIBUTION IN A REFERENCE POPULATION, HAS BEEN CONFIRMED THE DECISION THRESHOLDFOR MN DIAGNOSIS. Performed By: #### H STROPN ####[facility] Psaheqkpxq54[address] [place] [id number]. Garima Pulliam HSTROP 9.2 pg/mL Normal 4.0-76.1 The [facility] Comment on above: Result Comment: CUT- OFF POINTS HAVE BEEN ESTABLISHED BASED ON THE FOURTH UNIVERSAL DEFINITIONS OF MYOCARDIALINFARCTION. THE UPPER REFERENCE LIMIT (URL) OF TROPONIN, DEFINED THE 99TH PERCENTILE OFcTnI DISTRIBUTION IN A REFERENCE POPULATION, HAS BEEN CONFIRMED THE DECISION THRESHOLDFOR MN DIAGNOSIS. Performed By: #### C MP, BNP, HSTROPN ####[facility] [address]ikwjkcl[address] [place] [address]Dr. Garima Pulliam XR CHEST 1 Von 01-12-2023 XR CHEST 1 V Normal The [facility] XR CHEST 1 Von 01-01-2023 XR CHEST 1 V Normal The [facility] CARDIAC NASH 3-6on 3 CK [Catalytic activity/Vol] 196 U/L Normal 39-308 [facility] Comment on above: Performed By: #### C MREP ####[facility] Ojefahuhkb49[address] [place] [address]Dr. Garima Pulliam CK.MB [Mass/Vol] 7.41 ng/mL Critically high <=3.60 [facility] Comment on above: Performed By: #### C MREP ####[facility] Hkinajuyzp[address] [place] [address]Dr. Garima Pulliam HSTROP 10.3 pg/mL Normal 4.0-76.1 The [facility] Comment on above: Result Comment: CUT- OFF POINTS HAVE BEEN ESTABLISHED BASED ON THE FOURTH UNIVERSAL DEFINITIONS OF MYOCARDIALINFARCTION. THE UPPER REFERENCE LIMIT (URL) OF TROPONIN, DEFINED THE 99TH PERCENTILE OFcTnI DISTRIBUTION IN A REFERENCE POPULATION, HAS BEEN CONFIRMED THE DECISION THRESHOLDFOR MN DIAGNOSIS. Performed By: #### C MREP ####[facility] Qilhbkareh22[address] [place] [id number]. Garima Pulliam XR CHEST 1 Von 12-26-2022 XR CHEST 1 V Normal The [facility] BNPon 12-25-2022 Natriuretic peptide B (Bld) [Mass/Vol] 98.0 pg/mL Normal <=900.0 The [facility] Comment on above: Performed By: #### B MARVIN FRENCH CMADM ####[facility] Dxujywdltw16[address] [place] [address]Dr. Garima Heraclio CARDIAC NASH ADMITon 023 CK [Catalytic activity/Vol] 208 U/L Normal 39-308 The [facility] Comment on above: Performed By: #### B MARVIN FRENCH CMADM ####[facility] Naolzufpnx6446 [place] [address]Dr. Garima Pulliam CK.MB [Mass/Vol] 7.63 ng/mL Critically high <=3.60 The [facility] Comment on above: Performed By: #### B MARVIN FRENCH CMADM ####[facility] Bkarpybbaa29[address] [place] [address]Dr. Chapisrenu Pulliam HSTROP 8.8 pg/mL Normal 4.0-76.1 The [facility] Comment on above: Result Comment: CUT- OFF POINTS HAVE BEEN ESTABLISHED BASED ON THE FOURTH UNIVERSAL DEFINITIONS OF MYOCARDIALINFARCTION. THE UPPER REFERENCE LIMIT (URL) OF TROPONIN, DEFINED THE 99TH PERCENTILE OFcTnI DISTRIBUTION IN A REFERENCE POPULATION, HAS BEEN CONFIRMED THE DECISION THRESHOLDFOR [place] DIAGNOSIS. Performed By: #### B MARVIN FRENCH CMADM ####[facility] Vmsbziwdwi1675 [place] [address]Dr. Garima Pulliam DORIS 83 ng/mL Normal 16-96 [facility] Comment on above: Performed By: #### B MARVIN FRENCH CMADM ####[facility] Omstpelxdw0261 [place] [address]Dr. Garima Pulliam CBC AUTO DIFFon 12-25-2022 BASO # 0.0 103/ul Normal 0.0-0.1 The [facility] Comment on above: Performed By: #### C BC ####[facility] Pgwcyerfew0251 [place] [address]Dr. Garima Pulliam Basophils/100 WBC (Bld) 0.0 % Critically low 0.2-2.0 The [facility] Comment on above: Performed By: #### C BC ####[facility] Fzuggbqxyy2878 [place] [id number]. Garima Pulliam EO # 0.0 103/ul Normal 0.0-0.7 [facility] Comment on above: Performed By: #### C BC ####[facility] Zsmubxpoyg3263 [place] [id number]. Garima Pulliam Eosinophils/100 WBC (Bld) 0.7 % Critically low 0.9-7.0 [facility] Comment on above: Performed By: #### C BC ####[facility] [address]wqtwmth[address] [place], [place] [address]Dr. Garima Pulliam Erythrocyte distribution width (RBC) [Ratio] 13.4 % Normal 11.0-15.0 [facility] Comment on above: Performed By: #### C BC ####[facility] Vtyvlzvqub[address] [place], [place] [address]Dr. Garima Pulliam Hematocrit (Bld) [Volume fraction] 42.9 % Normal 42.0-54.0 [facility] Comment on above: Performed By: #### C BC ####[facility] Atwrjeqgyc[address] [place], [place] [address]Dr. Garima Pulliam Hemoglobin (Bld) [Mass/Vol] 14.4 g/dL Normal 14.0-18.0 [facility] Comment on above: Performed By: #### C BC ####[facility] Imrqznrjcb[address] [place], [place] [address]Dr. Garima Pulliam IG # 0.00 10e3/ul Normal 0.00-0.03 [facility] Comment on above: Performed By: #### C BC ####[facility] Nhpwrjovzz9[address] [place], [place] [address]Dr. Garima Pulliam IG % 0.0 % Normal 0.0-0.5 [facility] Comment on above: Performed By: #### C BC ####[facility] Eetdhmtfzx00[address] [place], [place] [address]Dr. Garima Pulliam LYMPH # 2.4 103/ul Normal 1.2-3.8 [facility] Comment on above: Performed By: #### C BC ####[facility] Rcyswqotom0162 [place] [id number]. Garima Heraclio Lymphocytes/100 WBC (Bld) 29.2 % Normal 20.5-60.0 [facility] Comment on above: Performed By: #### C BC ####[facility] Wczbhwfvyg4168 [place] [id number]. Garima Pulliam MANUAL DIFF REQ NO Normal [facility] Comment on above: Performed By: #### C BC ####[facility] Brsjcbmznc3882 [place] [phone]. Garima Heraclio MCH (RBC) [Entitic mass] 30.7 pg Normal 25.9-34.0 [facility] Comment on above: Performed By: #### C BC ####[facility] Bmrzgsayrl[address] [place], [place] [id number]. Garima Pulliam MCHC (RBC) [Mass/Vol] 33.6 g/dL Normal 29.9-35.2 [facility] Comment on above: Performed By: #### C BC ####[facility] Polcvhetfh[address] [place], [place] [address]Dr. Garima Heraclio MCV (RBC) [Entitic vol] 91.5 fL Normal 80.0-94.0 [facility] Comment on above: Performed By: #### C BC ####[facility] Boujpqdqse[address] [place], [place] [address]Dr. Garima Pulliam MONO # 0.0 103/ul Critically low 0.3-0.8 The [facility] Comment on above: Performed By: #### C BC ####[facility] Dxgdseddmv[address] [place], [place] [address]Dr. Garima Pulliam Monocytes/100 WBC (Bld) 8.0 % Normal 1.7-12.0 [facility] Comment on above: Performed By: #### C BC ####[facility] Qbuusznpoq16[address] [place], [place] [address]Dr. Garima Pulliam NEUT # 5.1 103/ul Normal 1.4-6.5 [facility] Comment on above: Performed By: #### C BC ####[facility] Xgcxnjcrjp2253 [place], [place] [address]Vx. Garima Pulliam Neutrophils/100 WBC (Bld) 62.8 % Normal 43.0-75.0 [facility] Comment on above: Performed By: #### C BC ####[facility] Wycfkwzbzg1700 [place], [place] [address]Eu. Garima Pulliam Platelet mean volume (Bld) [Entitic vol] 8.6 fL Critically low 9.5-13.5 [facility] Comment on above: Performed By: #### C BC ####[facility] Hqpzezirxu9740 [place], [place] [address]Go. Garima Pulliam PLT 200 103/ul Normal 150-450 [facility] Comment on above: Performed By: #### C BC ####[facility] Cxzikrlwdn6063 [place], [place] [address]Xn. Garima Pulliam RBC 4.69 106/ul Critically low 4.70-6.10 The [facility] Comment on above: Performed By: #### C BC ####[facility] Brmjltgmny7372 [place], [place] [address]Lx. Garima Pulliam WBC 8.2 103/ul Normal 4.0-11.0 [facility] Comment on above: Performed By: #### C BC ####[facility] Kfmzcygeqz2345 [place], [place] [address]Kh. Garima Pulliam Covid-19 PCR (CVDTB)on SARS-CoV-2 (COVID-19) RNA MARIE+probe Ql (Unsp spec) Not detected Normal NOT DETECTED [facility] Comment on above: Result Comment: When [...] for this test is supported by the [place] of Health and Human Service's declaration that [...] be used). Performed By: #### C VDTBH ####[facility] Rununzvfmd[address] [place], [place] [address]DrAdalberto Pulliam INFLUENZA A AND B AGon 12-25 INFLUANEGH SEE BELOW Normal [facility] Comment on above: Result Comment: Nega tive for Flu A protein angiten. Infection due to Flu A cannot be ruled out. Flu A angiten in the sample may be below the detection limit of the test. Performed By: #### I NFLUAB ####[facility] Kklpwvznpg8[address] [place], [place] [address]Dr. Garima Pulliam INFLUBNEG SEE BELOW Normal [facility] Comment on above: Result Comment: Nega tive for Flu B protein antigen. Infection due to Flu B cannot be ruled out. Flu B antigen in the sample may be below the detection limit of the test. Performed By: #### I NFLUAB ####[facility] Bmrhbwqsze08[address] [place], [place] [address]Dr. Garima Pulliam INFLUENZA A AG Negative Normal NEGATIVE SEE COMMENT [facility] Comment on above: Performed By: #### I NFLUAB ####[facility] Itvbwsenwb[address] [place], [place] [address]DrAdalberto Pulliam INFLUENZA B AG Negative Normal NEGATIVE SEE COMMENT [facility] Comment on above: Performed By: #### I NFLUAB ####[facility] Wybjualwbk[address] [place], [place] [address]DrAdalberto Pulliam PROF CHEM 8 (BAS METB)on Anion gap [Moles/Vol] 11.1 mmol/L Normal Th [facility] Comment on above: Performed By: #### B PSYCHOMETRICIAN, BMP, CMADM ####[facility] Hbmnzmfoah[address] [place], [place] [address]Dr. Garima Pulliam Calcium [Mass/Vol] 8.5 mg/dL Normal 8.5-10.1 [facility] Comment on above: Performed By: #### B PSYCHOMETRICIAN, MARVIN, CMAANA ROSA ####[facility] Gcyaksimnu[address] [place] [address]Dr. Garima Pulliam Chloride [Moles/Vol] 106 mmol/L Normal 98-107 [facility] Comment on above: Performed By: #### B PSYCHOMETRICIAN, MARVIN, CMADM ####[facility] Qwtooqydup9158 [place] [address]Dr. Garima Pulliam CO2 [Moles/Vol] 27.4 mmol/L Normal 21.0-32.0 [facility] Comment on above: Performed By: #### B PSYCHOMETRICIANMARVIN CMAANA ROSA ####[facility] Canlgisfba5[address] [place] [address]Dr. Garima Pulliam Creatinine [Mass/Vol] 0.65 mg/dL Critically low 0.70-1.30 [facility] Comment on above: Performed By: #### B PSYCHOMETRICIAN, MARVIN, CMADM ####[facility] Azsmacaoek[address] [place] [address]Dr. Garima Pulliam EGFR-AF POLISH >60 Normal >=60 [facility] Comment on above: Performed By: #### B PSYCHOMETRICIANMARVIN, CMADM ####[facility] Ynzktufher9127 [place] [address]Dr. Garima Pulliam EGFR-NON AF POLISH >60 Normal >=60 [facility] Comment on above: Performed By: #### B PSYCHOMETRICIAN, MARVIN, CMADM ####[facility] Ojftdqdrrq4868 [place] [address]Dr. Garima Pulliam Glucose [Mass/Vol] 140 mg/dL Critically high 74-106 [facility] Comment on above: Performed By: #### B PSYCHOMETRICIAN, MARVIN, CMADM ####[facility] Qpwulvhvyd0310 [place] [address]Dr. Garima Pulliam Potassium [Moles/Vol] 3.5 mmol/L Normal 3.5-5.1 [facility] Comment on above: Performed By: #### B PSYCHOMETRICIAN, MARVIN, CMADM ####[facility] Lxrmwzezyy3529 [place] [address]Dr. Garima Pulliam Sodium [Moles/Vol] 141 mmol/L Normal 136-145 [facility] Comment on above: Performed By: #### B PSYCHOMETRICIAN, BMP, CMADM ####[facility] Wonqmtfrtc4634 [place] [address]Dr. Garima Pulliam Urea nitrogen [Mass/Vol] 8.0 mg/dL Normal 7.0-18.0 [facility] Comment on above: Performed By: #### B PSYCHOMETRICIAN, BMP, CMADM ####[facility] Jkgxwmeqhi5447 [place] [address]Dr. Garima Pulliam Urea nitrogen/Creatinine [Mass ratio] 12.3 mg/mg Normal [facility] Comment on above: Performed By: #### B PSYCHOMETRICIAN, BMP, CMADM ####[facility] Pjcboaudbo46[address] [place] [address]Dr. Garima Pulliam CARDIAC NASH ADMITon 023 CK [Catalytic activity/Vol] 165 U/L Normal 39-308 [facility] Comment on above: Performed By: #### B MP, CMADM ####[facility] Znfrxetebw[address] [place], [place] [address]Dr. Garima Pulliam CK.MB [Mass/Vol] 6.48 ng/mL Critically high <=3.60 [facility] Comment on above: Performed By: #### B MP, CMADM ####[facility] Uxxuxjnvno[address] [place], [place] [address]Dr. Garima Heraclio HSTROP 11.7 pg/mL Normal 4.0-76.1 [facility] Comment on above: Result Comment: CUT- OFF POINTS HAVE BEEN ESTABLISHED BASED ON THE FOURTH UNIVERSAL DEFINITIONS OF MYOCARDIALINFARCTION. THE UPPER REFERENCE LIMIT (URL) OF TROPONIN, DEFINED THE 99TH PERCENTILE OFcTnI DISTRIBUTION IN A REFERENCE POPULATION, HAS BEEN CONFIRMED THE DECISION THRESHOLDFOR [place] DIAGNOSIS. Performed By: #### B MP, CMADM ####[facility] Nplmkmxyiy9241 [place] [address]Dr. Garima Pulliam DORIS 83 ng/mL Normal 16-96 [facility] Comment on above: Performed By: #### B MP, CMADM ####[facility] Bufmyvtwlc43[address] [place] [address]Dr. Garima Heraclio CBC AUTO DIFFon 12-10-2022 BASO # 0.0 103/ul Normal 0.0-0.1 [facility] Comment on above: Performed By: #### C BC ####[facility] Kqostblmbe[address] [place], [place] [address]Dr. Garima Pulliam Basophils/100 WBC (Bld) 0.3 % Normal 0.2-2.0 [facility] Comment on above: Performed By: #### C BC ####[facility] Mnlzuoleuv9[address] [place], [place] [address]Dr. Chapisrenu Pulliam EO # 0.1 103/ul Normal 0.0-0.7 [facility] Comment on above: Performed By: #### C BC ####[facility] Ednaxgvvef[address] [place], [place] [address]Dr. Garima Pulliam Eosinophils/100 WBC (Bld) 0.4 % Critically low 0.9-7.0 [facility] Comment on above: Performed By: #### C BC ####[facility] Szppklsiyg[address] [place], [place] [address]Dr. Chapisrenu Pulliam Erythrocyte distribution width (RBC) [Ratio] 13.2 % Normal 11.0-15.0 [facility] Comment on above: Performed By: #### C BC ####[facility] Zsyhnuhpkz24[address] [place], [place] [address]Dr. Garima Pulliam Hematocrit (Bld) [Volume fraction] 42.4 % Normal 42.0-54.0 [facility] Comment on above: Performed By: #### C BC ####[facility] Wxmebajlqs5[address] [place], [place] [address]Dr. Garima Pulliam Hemoglobin (Bld) [Mass/Vol] 14.4 g/dL Normal 14.0-18.0 [facility] Comment on above: Performed By: #### C BC ####[facility] Sjbanflzew[address] [place], [place] [address]DrAdalberto Pulliam IG # 0.05 10e3/ul Critically high 0.00-0.03 [facility] Comment on above: Performed By: #### C BC ####[facility] Pahcxhwddy1484 [place] [address]DrAdalberto Pulliam IG % 0.4 % Normal 0.0-0.5 [facility] Comment on above: Performed By: #### C BC ####[facility] Zghaqxrvff9486 [place] [address]DrAdalberto Pulliam LYMPH # 0.8 103/ul Critically low 1.2-3.8 [facility] Comment on above: Performed By: #### C BC ####[facility] Eanocpulju9210 [place] [address]DrAdalberto Pulliam Lymphocytes/100 WBC (Bld) 6.5 % Critically low 20.5-60.0 [facility] Comment on above: Performed By: #### C BC ####[facility] Mmttdknhdd89[address] [place], [place] [address]DrAdalberto Pulliam MANUAL DIFF REQ NO Normal [facility] Comment on above: Performed By: #### C BC ####[facility] Nhxkazbbmk98[address] [place], [place] [address]DrAdalberto Pulliam MCH (RBC) [Entitic mass] 30.5 pg Normal 25.9-34.0 [facility] Comment on above: Performed By: #### C BC ####[facility] Cwpkalsvsf[address] [place], [place] [address]DrAdablerto Pulliam MCHC (RBC) [Mass/Vol] 34.0 g/dL Normal 29.9-35.2 [facility] Comment on above: Performed By: #### C BC ####[facility] Jncttuawxm09[address] [place], [place] [address]DrAdalberto Pulliam MCV (RBC) [Entitic vol] 89.8 fL Normal 80.0-94.0 [facility] Comment on above: Performed By: #### C BC ####[facility] Zsuwcywsls[address] [place], [place] [address]DrAdalberto Pulliam MONO # 0.2 103/ul Critically low 0.3-0.8 [facility] Comment on above: Performed By: #### C BC ####[facility] Rglqgrahog1412 [place] [address]Dr. Garima Pulliam Monocytes/100 WBC (Bld) 2.0 % Normal 1.7-12.0 [facility] Comment on above: Performed By: #### C BC ####[facility] Uerpuseimy3631 [place] [address]Dr. Garima Pulliam NEUT # 10.5 103/ul Critically high 1.4-6.5 [facility] Comment on above: Performed By: #### C BC ####[facility] Zwdmskylpd[address] [place], [place] [address]Dr. Garima Heraclio Neutrophils/100 WBC (Bld) 90.4 % Critically high 43.0-75.0 [facility] Comment on above: Performed By: #### C BC ####[facility] Rfvjyfjkfw[address] [place], [place] [address]Dr. Garima Pulliam Platelet mean volume (Bld) [Entitic vol] 9.4 fL Critically low 9.5-13.5 [facility] Comment on above: Performed By: #### C BC ####[facility] Lsraanmwmq0512 [place] [address]Dr. Garima Pulliam PLT 198 103/ul Normal 150-450 [facility] Comment on above: Performed By: #### C BC ####[facility] Chlfviezgq1685 [place] [address]Dr. Garima Heraclio RBC 4.72 106/ul Normal 4.70-6.10 [facility] Comment on above: Performed By: #### C BC ####[facility] Kpvgtlqcir22[address] [place], [place] [address]DrAdalberto Nationrenu Heraclio WBC 11.6 103/ul Critically high 4.0-11.0 [facility] Comment on above: Performed By: #### C BC ####[facility] Yrhbrvqngw24[address] [place], [place] [address]DrAdalberto Pulliam PROF CHEM 8 (BAS METB)on Anion gap [Moles/Vol] 11.3 mmol/L Normal Th [facility] Comment on above: Performed By: #### B NANCY HERNANDEZ ####[facility] Dbtteermcm4397 [place] [address]Dr. Garima Pulliam Calcium [Mass/Vol] 8.9 mg/dL Normal 8.5-10.1 [facility] Comment on above: Performed By: #### B NANCY HERNANDEZ ####[facility] Oqgtlqnrul8075 [place] [address]Dr. Chapisrenu Pulliam Chloride [Moles/Vol] 103 mmol/L Normal 98-107 [facility] Comment on above: Performed By: #### NANCY Larkin MP ####[facility] Awqpewpizg[address] [place], [place] [address]Dr. Chapisrenu Pulliam CO2 [Moles/Vol] 28.2 mmol/L Normal 21.0-32.0 [facility] Comment on above: Performed By: #### NANCY Larkin MP ####[facility] Sjvncqxaho[address] [place], [place] [address]Dr. Garima Pulliam Creatinine [Mass/Vol] 0.60 mg/dL Critically low 0.70-1.30 [facility] Comment on above: Performed By: #### NANCY Larkin MP ####[facility] Ggvsvmnwio[address] [place], [place] [address]Dr. Garima Pulliam EGFR-AF POLISH >60 Normal >=60 [facility] Comment on above: Performed By: #### NANCY Larkin MP ####[facility] Gshcmamkhy39[address] [place] [address]Dr. Garima Pulliam EGFR-NON AF POLISH >60 Normal >=60 [facility] Comment on above: Performed By: #### NANCY Larkin MP ####[facility] Xypueuysrc13[address] [place], [place] [address]Dr. Garima Pulliam Glucose [Mass/Vol] 166 mg/dL Critically high 74-106 [facility] Comment on above: Performed By: #### NANCY Larkin MP ####[facility] Pejjfyqstu0673 [place] [address]Dr. Chapisrenu Pulliam Potassium [Moles/Vol] 3.5 mmol/L Normal 3.5-5.1 [facility] Comment on above: Performed By: #### B NANCY HERNANDEZ ####[facility] Ormawgjvlz5587 [place] [address]Dr. Garima Pulliam Sodium [Moles/Vol] 139 mmol/L Normal 136-145 [facility] Comment on above: Performed By: #### B NANCY HERNANDEZ ####[facility] Zeafefignq[address] [place], [place] [address]Dr. Garima Pulliam Urea nitrogen [Mass/Vol] 9.0 mg/dL Normal 7.0-18.0 [facility] Comment on above: Performed By: #### B NANCY HERNANDEZ ####[facility] Lzzmdunflz[address] [place], [place] [address]Dr. Garima Pulliam Urea nitrogen/Creatinine [Mass ratio] 15.0 mg/mg Normal [facility] Comment on above: Performed By: #### B NANCY HERNANDEZ ####[facility] Fpdkatszsj[address] [place], [place] [address]Dr. Chapisrenu Pulliam XR CHEST 1 Von 12-10-2022 XR CHEST 1 V Normal [facility] BNPon 11-27-2022 Natriuretic peptide B (Bld) [Mass/Vol] 95.0 pg/mL Normal <=900.0 [facility] Comment on above: Performed By: #### C MP, HSTROPN, BNP ####[facility] Qmujbdbfme06[address] [place], [place] [address]Dr. Garima Pulliam CBC AUTO DIFFon 11-27-2022 BASO # 0.0 103/ul Normal 0.0-0.1 [facility] Comment on above: Performed By: #### C BC ####[facility] Txfwfzzncj[address] [place], [place] [address]Dr. Garima Pulliam Basophils/100 WBC (Bld) 0.2 % Normal 0.2-2.0 [facility] Comment on above: Performed By: #### C BC ####[facility] Qumqqmzahg[address] [place] [id number]. Garima Pulliam EO # 0.2 103/ul Normal 0.0-0.7 [facility] Comment on above: Performed By: #### C BC ####[facility] Bbjutqglpj7100 [place] [address]Dr. Garima Pulliam Eosinophils/100 WBC (Bld) 2.0 % Normal 0.9-7.0 [facility] Comment on above: Performed By: #### C BC ####[facility] Hhwyvgkyyr0437 [place] [address]Dr. Garima Pulliam Erythrocyte distribution width (RBC) [Ratio] 13.2 % Normal 11.0-15.0 [facility] Comment on above: Performed By: #### C BC ####[facility] [address]sjawyhyvs[address] [place], [place] [address]Dr. Garima Pulliam Hematocrit (Bld) [Volume fraction] 42.4 % Normal 42.0-54.0 [facility] Comment on above: Performed By: #### C BC ####[facility] Ilcdtqjeyx2115 [place] [address]Dr. Garima Pulliam Hemoglobin (Bld) [Mass/Vol] 14.4 g/dL Normal 14.0-18.0 [facility] Comment on above: Performed By: #### C BC ####[facility] Wyszhiiswm8647 [place] [address]Dr. Garima Pulliam IG # 0.04 10e3/ul Critically high 0.00-0.03 [facility] Comment on above: Performed By: #### C BC ####[facility] Oalfvkswqu8200 [place] [address]Dr. Garima Pulliam IG % 0.4 % Normal 0.0-0.5 [facility] Comment on above: Performed By: #### C BC ####[facility] Ttggfdauwu6370 [place] [address]Dr. Garima Pulliam LYMPH # 2.2 103/ul Normal 1.2-3.8 [facility] Comment on above: Performed By: #### C BC ####[facility] Vhtdfnzxbk3401 [place] [id number]. Garima Pulliam Lymphocytes/100 WBC (Bld) 21.5 % Normal 20.5-60.0 [facility] Comment on above: Performed By: #### C BC ####[facility] Rkwshoradi6194 [place] [id number]. Garima Heraclio MANUAL DIFF REQ NO Normal [facility] Comment on above: Performed By: #### C BC ####[facility] Rvxsvtndwz4401 [place] [address]Dr. Garima Heraclio MCH (RBC) [Entitic mass] 30.4 pg Normal 25.9-34.0 [facility] Comment on above: Performed By: #### C BC ####[facility] Cqitjwgzzm8305 [place] [address]Dr. Garima Heraclio MCHC (RBC) [Mass/Vol] 34.0 g/dL Normal 29.9-35.2 [facility] Comment on above: Performed By: #### C BC ####[facility] Mxejicghse1776 [place] [address]Dr. Garima Heraclio MCV (RBC) [Entitic vol] 89.6 fL Normal 80.0-94.0 [facility] Comment on above: Performed By: #### C BC ####[facility] Grmdgdswex[address] [place], [place] [address]Dr. Garima Pulliam MONO # 0.8 103/ul Normal 0.3-0.8 [facility] Comment on above: Performed By: #### C BC ####[facility] Pajteenilr3962 [place] [address]Dr. Chapisrenu Pulliam Monocytes/100 WBC (Bld) 7.7 % Normal 1.7-12.0 [facility] Comment on above: Performed By: #### C BC ####[facility] Mkczanhhvm5834 [place] [address]Dr. Garima Pulliam NEUT # 7.0 103/ul Critically high 1.4-6.5 [facility] Comment on above: Performed By: #### C BC ####[facility] Qztucsegdh0764 [place] [address]Dr. Garima Pulliam Neutrophils/100 WBC (Bld) 68.2 % Normal 43.0-75.0 [facility] Comment on above: Performed By: #### C BC ####[facility] Qaaxejapqn9082 [place] [address]Dr. Chapisrenu Heraclio Platelet mean volume (Bld) [Entitic vol] 8.9 fL Critically low 9.5-13.5 [facility] Comment on above: Performed By: #### C BC ####[facility] Jbmphrgqnv1186 [place] [address]Dr. Garima Pulliam PLT 222 103/ul Normal 150-450 [facility] Comment on above: Performed By: #### C BC ####[facility] [address]tf[address]fybefp[address] [place], [place] [address]Dr. Garima Pulliam RBC 4.73 106/ul Normal 4.70-6.10 [facility] Comment on above: Performed By: #### C BC ####[facility] Sdcflpjkzr[address] [place], [place] [address]Dr. Garima Pulliam WBC 10.3 103/ul Normal 4.0-11.0 [facility] [facility] Comment on above: Performed By: #### C BC ####[facility] [address] [place], [place] [address]Dr. Garima Pulliam PROF 14(COMP METB)on 023 Albumin [Mass/Vol] 3.7 g/dL Normal 3.4-5.0 [facility] Comment on above: Performed By: #### C MP, HSTROPN, BNP ####[facility] C[address]weyemmg[address] [place] [address]Dr. Garima Pulliam Albumin/Globulin [Mass ratio] 1.5 {ratio} Normal The [facility] Comment on above: Performed By: #### C MP, HSTROPN, BNP ####[facility] Dbwavhubcz[address] [place] [address]Dr. Garima Pulliam ALP [Catalytic activity/Vol] 79 U/L Normal 46-116 The [facility] Comment on above: Performed By: #### C MP, HSTROPN, BNP ####[facility] Pspsnhzawg[address] [place] [address]Dr. Garima Pulliam ALT [Catalytic activity/Vol] 32 U/L Normal 16-63 [facility] Comment on above: Performed By: #### C MP, HSTROPN, BNP ####[facility] Pmuaqgmikn[address] [place] [address]Dr. Garima Pulliam Anion gap [Moles/Vol] 9.5 mmol/L Normal [facility] Comment on above: Performed By: #### C MP, HSTROPN, BNP ####[facility] Efiixhbndr[address] [place], [place] [address]Dr. Garima Pulliam AST [Catalytic activity/Vol] 25 U/L Normal 15-37 [facility] Comment on above: Performed By: #### C MP, HSTROPN, BNP ####[facility] V[address]ry[address]xm[address] [place], [place] [address]Dr. Garima Pulliam Bilirubin [Mass/Vol] 0.4 mg/dL Normal 0.2-1.0 [facility] Comment on above: Performed By: #### C MP, HSTROPN, BNP ####[facility] [address] [place], [place] [address]Dr. Garima Pulliam Calcium [Mass/Vol] 8.9 mg/dL Normal 8.5-10.1 [facility] Comment on above: Performed By: #### C MP, HSTROPN, BNP ####[facility] [address]vuk[address] [place], [place] [address]Dr. Garima Pulliam Chloride [Moles/Vol] 103 mmol/L Normal 98-107 The [facility] Comment on above: Performed By: #### C MP, HSTROPN, BNP ####[facility] Ligpiqzhxm[address] [place], [place] [address]Dr. Garima Pulliam CO2 [Moles/Vol] 28.6 mmol/L Normal 21.0-32.0 [facility] Comment on above: Performed By: #### C MP, HSTROPN, BNP ####[facility] Ujtjidjoiz[address] [place] [address]Dr. Garima Pulliam Creatinine [Mass/Vol] 0.72 mg/dL Normal 0.70-1.30 [facility] Comment on above: Performed By: #### C MP, HSTROPN, BNP ####[facility] Nujqjmgjrj[address] [place] [id number]. Garima Pulliam EGFR-AF POLISH >60 Normal >=60 [facility] Comment on above: Performed By: #### C MP, HSTROPN, BNP ####[facility] Zlfabgryfa33[address] [place] [address]Dr. Garima Pulliam EGFR-NON AF POLISH >60 Normal >=60 [facility] Comment on above: Performed By: #### C MP, HSTROPN, BNP ####[facility] Axljyqewxn[address] [place] [address]Dr. Garima Pulliam Globulin (S) [Mass/Vol] 2.5 g/dL Normal [facility] Comment on above: Performed By: #### C MP, HSTROPN, BNP ####[facility] Gakpaxdlvb[address] [place], [place] [address]Dr. Garima Pulliam Glucose [Mass/Vol] 114 mg/dL Critically high 74-106 T [facility] Comment on above: Performed By: #### C MP, HSTROPN, BNP ####[facility] Ycsfwmated90[address] [place] [address]Dr. Garima Pulliam Potassium [Moles/Vol] 4.1 mmol/L Normal 3.5-5.1 [facility] Comment on above: Performed By: #### C MP, HSTROPN, BNP ####[facility] Hoktdhhovr6[address] [place] [address]Dr. Garima Pulliam Protein [Mass/Vol] 6.2 g/dL Critically low 6.4-8.2 Th [facility] Comment on above: Performed By: #### C MP, HSTROPN, BNP ####[facility] Hke[address]gwi[address] [place], [place] [address]Dr. Garima Pulliam Sodium [Moles/Vol] 137 mmol/L Normal 136-145 [facility] Comment on above: Performed By: #### C MP, HSTROPN, BNP ####[facility] Lrejwowcuo32[address] [place] [address]Dr. Garima Pulliam Urea nitrogen [Mass/Vol] 13.0 mg/dL Normal 7.0-18.0 [facility] Comment on above: Performed By: #### C MP, HSTROPN, BNP ####[facility] Thdhugavir78[address] [place] [address]Dr. Garima Pulliam Urea nitrogen/Creatinine [Mass ratio] 18.1 mg/mg Normal [facility] Comment on above: Performed By: #### C MP, HSTROPN, BNP ####[facility] Nnvaumrcyj25[address] [place] [address]Dr. Garima Pulliam TROPONIN, HIGH SENSITIVITYon 11-27-2022 HSTROP 11.8 pg/mL Normal 4.0-76.1 [facility] Comment on above: Result Comment: CUT- OFF POINTS HAVE BEEN ESTABLISHED BASED ON THE FOURTH UNIVERSAL DEFINITIONS OF MYOCARDIALINFARCTION. THE UPPER REFERENCE LIMIT (URL) OF TROPONIN, DEFINED THE 99TH PERCENTILE OFcTnI DISTRIBUTION IN A REFERENCE POPULATION, HAS BEEN CONFIRMED THE DECISION THRESHOLDFOR [place] DIAGNOSIS. Performed By: #### C MP, HSTROPN, BNP ####[facility] [address]sntzgj[address] [place], [place] [address]Dr. Garima Pulliam XR CHEST 1 Von 11-27-2022 XR CHEST 1 V Normal The [facility] BNPon 11-20-2022 Natriuretic peptide B (Bld) [Mass/Vol] 73.0 pg/mL Normal <=900.0 [facility] Comment on above: Performed By: #### B MP, HSTROPN, BNP ####[facility] Epfrgxuqik[address] [place], [place] [address]Dr. Garima Pulliam CBC AUTO DIFFon 11-20-2022 BASO # 0.0 103/ul Normal 0.0-0.1 [facility] Comment on above: Performed By: #### C BC ####[facility] M[address] [place] [address]. Garima Pulliam Basophils/100 WBC (Bld) 0.3 % Normal 0.2-2.0 The [facility] Comment on above: Performed By: #### C BC ####[facility] Jujycdmmtd[address] [place] [address]Dr. Garima Pulliam EO # 0.2 103/ul Normal 0.0-0.7 The [facility] Comment on above: Performed By: #### C BC ####[facility] Kodaqufmrd[address] [place], [place] [address]Dr. Garima Pulliam Eosinophils/100 WBC (Bld) 2.1 % Normal 0.9-7.0 The [facility] Comment on above: Performed By: #### C BC ####[facility] W[address]lhlhsoa[address] [place], [place] [address]Dr. Garima Pulliam Erythrocyte distribution width (RBC) [Ratio] 13.2 % Normal 11.0-15.0 The [facility] Comment on above: Performed By: #### C BC ####[facility] Rftthvhqrt[address] [place], [place] [address]Dr. Garima Pulliam Hematocrit (Bld) [Volume fraction] 43.4 % Normal 42.0-54.0 The [facility] Comment on above: Performed By: #### C BC ####[facility] Jlxrnvpjrf[address] [place], [place] [address]Dr. Garima Pulliam Hemoglobin (Bld) [Mass/Vol] 14.6 g/dL Normal 14.0-18.0 The [facility] Comment on above: Performed By: #### C BC ####[facility] Ecuvtifzja[address] [place], [place] [address]Dr. Garima Pulliam IG # 0.02 10e3/ul Normal 0.00-0.03 The [facility] Comment on above: Performed By: #### C BC ####[facility] [address]zxq[address] [place], [place] [address]Dr. Garima Pulliam IG % 0.2 % Normal 0.0-0.5 The [facility] Comment on above: Performed By: #### C BC ####[facility] Biodxxeztu[address] [place] [id number]. Garima Heraclio LYMPH # 2.1 103/ul Normal 1.2-3.8 The [facility] Comment on above: Performed By: #### C BC ####[facility] Uwtqbkeuxs8[address] [place] [address]Dr. Garima Pulliam Lymphocytes/100 WBC (Bld) 19.2 % Critically low 20.5-60.0 The [facility] Comment on above: Performed By: #### C BC ####[facility] Ylvgzxeutz399[address] [place] [address]Dr. Garima Pulliam MANUAL DIFF REQ NO Normal The [facility] Comment on above: Performed By: #### C BC ####[facility] Fsxyplznco0185 [place] [address]Dr. Garima Pulliam MCH (RBC) [Entitic mass] 30.4 pg Normal 25.9-34.0 The [facility] Comment on above: Performed By: #### C BC ####[facility] [address] [place], [place] [address]Dr. Garima Pulliam MCHC (RBC) [Mass/Vol] 33.6 g/dL Normal 29.9-35.2 The [facility] Comment on above: Performed By: #### C BC ####[facility] Warncunlfp7[address] [place] [address]Dr. Garima Pulliam MCV (RBC) [Entitic vol] 90.4 fL Normal 80.0-94.0 The [facility] Comment on above: Performed By: #### C BC ####[facility] [address]fit[address]odcb[address] [place], [place] [address]Dr. Garima Pulliam MONO # 0.6 103/ul Normal 0.3-0.8 The [facility] Comment on above: Performed By: #### C BC ####[facility] Nimixxdyms[address] [place], [place] [address]Dr. Garima Pulliam Monocytes/100 WBC (Bld) 5.8 % Normal 1.7-12.0 The [facility] Comment on above: Performed By: #### C BC ####[facility] [address] [place] [address]f. Garima Pulliam NEUT # 7.8 103/ul Critically high 1.4-6.5 The [facility] Comment on above: Performed By: #### C BC ####[facility] Oql[address]jzmfe40[address] [place] [phone]. Garima Pulliam Neutrophils/100 WBC (Bld) 72.4 % Normal 43.0-75.0 The [facility] Comment on above: Performed By: #### C BC ####[facility] Chmthuhjfm4[address] [place] [phone]. Garima Pulliam Platelet mean volume (Bld) [Entitic vol] 8.7 fL Critically low 9.5-13.5 The [facility] Comment on above: Performed By: #### C BC ####[facility] Bjjyxmpavv[address] [place] [phone]. Garima Pulliam PLT 184 103/ul Normal 150-450 The [facility] Comment on above: Performed By: #### C BC ####[facility] Yxeknxjjdm04[address] [place] [phone]. Garima Pulliam RBC 4.80 106/ul Normal 4.70-6.10 The [facility] Comment on above: Performed By: #### C BC ####[facility] Lkkosfzkkn6[address] [place] [phone]. Garima Pulliam WBC 10.8 103/ul Normal 4.0-11.0 The [facility] Comment on above: Performed By: #### C BC ####[facility] Gncyhvltio4[address] [place] [address]Dr. Garima Pulliam [facility]on 10-24 SARS-CoV-2 (COVID-19) RNA MARIE+probe Ql (Unsp spec) Not detected Normal NOT DETECTED The [facility] Comment on above: Result Comment: When [...] for this test is supported by the [employer] Installer of Health and Human Service's declaration that [...] be used). Performed By: #### C VDTBH ####[facility] Dabavicnpb[address] [place], [place] [address]Dr. Garima Pulliam INFLUENZA A AND B AGon 11-20 INFLUANE SEE BELOW Normal The [facility] Comment on above: Result Comment: Nega tive for Flu A protein angiten. Infection due to Flu A cannot be ruled out. Flu A angiten in the sample may be below the detection limit of the test. Performed By: #### I NFLUAB ####[facility] [address] [place], [place] [address]Dr. Garima Pulliam INFLUBNEGH SEE BELOW Normal The [facility] Comment on above: Result Comment: Nega tive for Flu B protein antigen. Infection due to Flu B cannot be ruled out. Flu B antigen in the sample may be below the detection limit of the test. Performed By: #### I NFLUAB ####[facility] H[address]yhgs[address] [place], [place] [address]Dr. Garima Pulliam INFLUENZA A AG Negative Normal NEGATIVE SEE COMMENT The [facility] Comment on above: Performed By: #### I NFLUAB ####[facility] [address]xhqtlw[address] [place], [place] [address]Dr. Garima Pulliam INFLUENZA B AG Negative Normal NEGATIVE SEE COMMENT The [facility] Comment on above: Performed By: #### I NFLUAB ####[facility] Knttprtxmd[address] [place], [place] [address]Dr. Garima Pulliam PROF CHEM 8 (BAS METB)on Anion gap [Moles/Vol] 8.2 mmol/L Normal [facility] Comment on above: Performed By: #### B MP, HSTROPN, BNP ####[facility] Khjezaqayx[address] [place] [address]Dr. Garima Pulliam Calcium [Mass/Vol] 8.7 mg/dL Normal 8.5-10.1 [facility] Comment on above: Performed By: #### B MP, HSTROPN, BNP ####[facility] Gpjgnbpzos[address] [place] [address]Dr. Garima Pulliam Chloride [Moles/Vol] 103 mmol/L Normal 98-107 [facility] Comment on above: Performed By: #### B MP, HSTROPN, BNP ####[facility] Lnjmffboth74[address] [place] [address]Dr. Garima Pulliam CO2 [Moles/Vol] 29.4 mmol/L Normal 21.0-32.0 [facility] Comment on above: Performed By: #### B MP, HSTROPN, BNP ####[facility] [address]awqkyz[address] [place], [place] [address]Dr. Garima Pulliam Creatinine [Mass/Vol] 0.69 mg/dL Critically low 0.70-1.30 [facility] Comment on above: Performed By: #### B MP, HSTROPN, BNP ####[facility] Rvzohlsnki3[address] [place] [address]Dr. Garima Pulliam EGFR-AF POLISH >60 Normal >=60 [facility] Comment on above: Performed By: #### B MP, HSTROPN, BNP ####[facility] Htexwggcvl90[address] [place] [address]Dr. Garima Pulliam EGFR-NON AF POLISH >60 Normal >=60 [facility] Comment on above: Performed By: #### B MP, HSTROPN, BNP ####[facility] Paakfobngy[address] [place] [address]Dr. Garima Pulliam Glucose [Mass/Vol] 209 mg/dL Critically high 74-106 [facility] Comment on above: Performed By: #### B MP, HSTROPN, BNP ####[facility] Pmcmevrcya750[address] [place] [address]Dr. Garima Pulliam Potassium [Moles/Vol] 3.6 mmol/L Normal 3.5-5.1 [facility] Comment on above: Performed By: #### B MP, HSTROPN, BNP ####[facility] Pcmwaxqsgr26[address] [place] [address]Dr. Garima Pulliam Sodium [Moles/Vol] 137 mmol/L Normal 136-145 [facility] Comment on above: Performed By: #### B MP, HSTROPN, BNP ####[facility] Oegzpeuqfg96[address] [place] [address]Dr. Garima Pulliam Urea nitrogen [Mass/Vol] 11.0 mg/dL Normal 7.0-18.0 [facility] Comment on above: Performed By: #### B MP, HSTROPN, BNP ####[facility] Ffrfoswvxq8[address] [place] [address]Dr. Garima Pulliam Urea nitrogen/Creatinine [Mass ratio] 15.9 mg/mg Normal [facility] Comment on above: Performed By: #### B MP, HSTROPN, BNP ####[facility] Djthoraojx[address] [place] [address]Dr. Garima Pulliam TROPONIN, HIGH SENSITIVITYon 11-20-2022 HSTROP 8.7 pg/mL Normal 4.0-76.1 [facility] Comment on above: Result Comment: CUT- OFF POINTS HAVE BEEN ESTABLISHED BASED ON THE FOURTH UNIVERSAL DEFINITIONS OF MYOCARDIALINFARCTION. THE UPPER REFERENCE LIMIT (URL) OF TROPONIN, DEFINED THE 99TH PERCENTILE OFcTnI DISTRIBUTION IN A REFERENCE POPULATION, HAS BEEN CONFIRMED THE DECISION THRESHOLDFOR [place] DIAGNOSIS. Performed By: #### B MP, HSTROPN, BNP ####[facility] [address] [place], [place] [address]Dr. Garima Pulliam XR CHEST 1 Von 11-20-2022 XR CHEST 1 V Normal The [facility] XR CHEST 1 Von 10-02-2022 XR CHEST 1 V Normal The [facility] BNPon 09-29-2022 Natriuretic peptide B (Bld) [Mass/Vol] 107.0 pg/mL Normal <=900.0 The [facility] Comment on above: Performed By: #### C MP, BNP, CMADM ####[facility] [address]zbrbpjnbf25[address] [place] [address]Dr. Garima Heraclio CARDIAC NASH ADMITon 022 CK [Catalytic activity/Vol] 190 U/L Normal 39-308 The [facility] Comment on above: Performed By: #### C MP, BNP, CMADM ####[facility] Gbqxzufrgf4[address] [place] [address]Dr. Garima Pulliam CK.MB [Mass/Vol] 11.11 ng/mL Critically high <=3.60 Th e [facility] Comment on above: Performed By: #### C MP, BNP, CMADM ####[facility] Dicrlygnpr[address] [place] [address]Dr. Garima Heraclio HSTROP 11.8 pg/mL Normal 4.0-76.1 The [facility] Comment on above: Result Comment: CUT- OFF POINTS HAVE BEEN ESTABLISHED BASED ON THE FOURTH UNIVERSAL DEFINITIONS OF MYOCARDIALINFARCTION. THE UPPER REFERENCE LIMIT (URL) OF TROPONIN, DEFINED THE 99TH PERCENTILE OFcTnI DISTRIBUTION IN A REFERENCE POPULATION, HAS BEEN CONFIRMED THE DECISION THRESHOLDFOR [place] DIAGNOSIS. Performed By: #### C MP, BNP, CMADM ####[facility] Kaxtijmzvv[address] [place] [address]Dr. Garima Pulliam DORIS 133 ng/mL Critically high 16-96 The [facility] Comment on above: Performed By: #### C MP, BNP, CMADM ####[facility] Oyhragznvy[address] [place] [address]Dr. Garima Pulliam CBC AUTO DIFFon 09-29-2022 BASO # 0.0 103/ul Normal 0.0-0.1 The [facility] Comment on above: Performed By: #### C BC ####[facility] Yoduloqpno90[address] [place] [address]Dr. Garima Pulliam Basophils/100 WBC (Bld) 0.2 % Normal 0.2-2.0 The [facility] Comment on above: Performed By: #### C BC ####[facility] Iyzowqhtbs30[address] [place] [id number]. Garima Pulliam EO # 0.1 103/ul Normal 0.0-0.7 The [facility] Comment on above: Performed By: #### C BC ####[facility] Jacmtyquaj[address] [place] [address]Dr. Garima Pulliam Eosinophils/100 WBC (Bld) 1.4 % Normal 0.9-7.0 The [facility] Comment on above: Performed By: #### C BC ####[facility] [address]icwnqka[address] [place], [place] [address]Dr. Garima Pulliam Erythrocyte distribution width (RBC) [Ratio] 13.7 % Normal 11.0-15.0 [facility] Comment on above: Performed By: #### C BC ####[facility] Zapctufdyg[address] [place], [place] [address]Dr. Garima Pulliam Hematocrit (Bld) [Volume fraction] 45.4 % Normal 42.0-54.0 [facility] Comment on above: Performed By: #### C BC ####[facility] Qrpcqndwin[address] [place], [place] [address]Dr. Garima Pulliam Hemoglobin (Bld) [Mass/Vol] 14.8 g/dL Normal 14.0-18.0 [facility] Comment on above: Performed By: #### C BC ####[facility] Asjooabmmr[address] [place] [address]Dr. Garima Pulliam IG # 0.04 10e3/ul Critically high 0.00-0.03 [facility] Comment on above: Performed By: #### C BC ####[facility] Nlhewdlqdf[address] [place], [place] [address]Dr. Garima Pulliam IG % 0.5 % Normal 0.0-0.5 The [facility] Comment on above: Performed By: #### C BC ####[facility] Zjbqjnarwa[address] [place], [place] [address]Dr. Garima Pulliam LYMPH # 1.1 103/ul Critically low 1.2-3.8 [facility] Comment on above: Performed By: #### C BC ####[facility] Buzfgcrgot11[address] [place] [phone]. Garima Pulliam Lymphocytes/100 WBC (Bld) 12.7 % Critically low 20.5-60.0 The [facility] Comment on above: Performed By: #### C BC ####[facility] Nnafqhlsxf13[address] [place] [phone]. Garima Heraclio MANUAL DIFF REQ NO Normal The [facility] Comment on above: Performed By: #### C BC ####[facility] Xrhcimlzfu2352 [place] [phone]. Garima Heraclio MCH (RBC) [Entitic mass] 30.0 pg Normal 25.9-34.0 The [facility] Comment on above: Performed By: #### C BC ####[facility] Qmpqnklnrf6319 [place] [address]Dr. Garima Heraclio MCHC (RBC) [Mass/Vol] 32.6 g/dL Normal 29.9-35.2 The [facility] Comment on above: Performed By: #### C BC ####[facility] Lqqgbocbki2628 [place] [phone]. Garima Heraclio MCV (RBC) [Entitic vol] 91.9 fL Normal 80.0-94.0 The [facility] Comment on above: Performed By: #### C BC ####[facility] Pvwuyndtin82[address] [place] [address]Dr. Chapisrenu Heraclio MONO # 0.4 103/ul Normal 0.3-0.8 The [facility] Comment on above: Performed By: #### C BC ####[facility] Dwpdcxdgdk0163 [place] [phone]. Garima Heraclio Monocytes/100 WBC (Bld) 4.8 % Normal 1.7-12.0 The [facility] Comment on above: Performed By: #### C BC ####[facility] R[address]lhseh[address] [place], [place] [address]Dr. Garima Pulliam NEUT # 7.1 103/ul Critically high 1.4-6.5 The [facility] Comment on above: Performed By: #### C BC ####[facility] Ondmwfxykf5079 [place] [phone]. Garima Pulliam Neutrophils/100 WBC (Bld) 80.4 % Critically high 43.0-75.0 [facility] Comment on above: Performed By: #### C BC ####[facility] Jopmumxtzl4665 [place] [phone]. Garima Pulliam Platelet mean volume (Bld) [Entitic vol] 9.1 fL Critically low 9.5-13.5 [facility] Comment on above: Performed By: #### C BC ####[facility] Hxeriackex8[address] [place] [phone]. Garima Pulliam PLT 200 103/ul Normal 150-450 The [facility] Comment on above: Performed By: #### C BC ####[facility] Fyqscebwfy4830 [place] [phone]. Garima Pulliam RBC 4.94 106/ul Normal 4.70-6.10 The [facility] Comment on above: Performed By: #### C BC ####[facility] Quootozfca5218 [place] [phone]. Garima Pulliam WBC 8.9 103/ul Normal 4.0-11.0 The [facility] Comment on above: Performed By: #### C BC ####[facility] Anuduzuurp[address] [place] [phone]. Garima Pulliam Covid-19 PCR ([facility])on SARS-CoV-2 (COVID-19) RNA MARIE+probe Ql (Unsp spec) Not detected Normal NOT DETECTED The [facility] Comment on above: Result Comment: When [...] for this test is supported by the [employer] Installer of Health and Human Service's declaration that [...] be used). Performed By: #### C VDTBH ####[facility] Mcovngkjmb[address] [place] [address]Dr. Garima Pulliam LACTATE/LACTIC ACIDon 2021 Lactate [Moles/Vol] 1.7 mmol/L Normal 0.4-1.9 [facility] Comment on above: Performed By: #### L ACT ####[facility] Zfpjqrpugi[address] [place], [place] [address]Dr. Garima Pulliam PROF 14(COMP METB)on 022 Albumin [Mass/Vol] 3.8 g/dL Normal 3.4-5.0 [facility] Comment on above: Performed By: #### C MP, BNP, CMADM ####[facility] Qsbslcadds4[address] [place] [address]Dr. Garima Pulliam Albumin/Globulin [Mass ratio] 1.5 {ratio} Normal [facility] Comment on above: Performed By: #### C MP, BNP, CMADM ####[facility] Gyotryhwju[address] [place] [id number]. Garima Pulliam ALP [Catalytic activity/Vol] 62 U/L Normal 46-116 [facility] Comment on above: Performed By: #### C MP, BNP, CMADM ####[facility] [address] [place] [address]Dr. Garima Pulliam ALT [Catalytic activity/Vol] 37 U/L Normal 16-63 [facility] Comment on above: Performed By: #### C MP, BNP, CMADM ####[facility] Gnkexbakji[address] [place] [address]Dr. Garima Pulliam Anion gap [Moles/Vol] 8.0 mmol/L Normal [facility] Comment on above: Performed By: #### C MP, BNP, CMADM ####[facility] Xcesxxkuhm[address] [place] [address]Dr. Garima Pulliam AST [Catalytic activity/Vol] 20 U/L Normal 15-37 [facility] Comment on above: Performed By: #### C MP, BNP, CMADM ####[facility] Hpiaojssja[address] [place] [address]Dr. Garima Pulliam Bilirubin [Mass/Vol] 0.6 mg/dL Normal 0.2-1.0 [facility] Comment on above: Performed By: #### C MP, BNP, CMADM ####[facility] Jdrffwwqev45[address] [place] [address]Dr. Garima Pulliam Calcium [Mass/Vol] 9.1 mg/dL Normal 8.5-10.1 [facility] Comment on above: Performed By: #### C MP, BNP, CMADM ####[facility] F[address]wof[address] [place], [place] [address]Dr. Garima Pulliam Chloride [Moles/Vol] 103 mmol/L Normal 98-107 [facility] Comment on above: Performed By: #### C MP, BNP, CMADM ####[facility] [address]pt[address] [place], [place] [address]Dr. Garima Pulliam CO2 [Moles/Vol] 31.8 mmol/L Normal 21.0-32.0 [facility] Comment on above: Performed By: #### C MP, BNP, CMADM ####[facility] Gwuqcgbjvl[address] [place], [place] [address]Dr. Garima Pulliam Creatinine [Mass/Vol] 0.63 mg/dL Critically low 0.70-1.30 [facility] Comment on above: Performed By: #### C MP, BNP, CMADM ####[facility] Cydajlmdbm[address] [place], [place] [address]Dr. Garima Pulliam EGFR-AF POLISH >60 Normal >=60 [facility] Comment on above: Performed By: #### C MP, BNP, CMADM ####[facility] Kfqbszvlno[address] [place], [place] [address]Dr. Yilan Pulliam EGFR-NON AF POLISH >60 Normal >=60 [facility] Comment on above: Performed By: #### C MP, BNP, CMADM ####[facility] Ihmvoswgvz[address] [place] [address]Dr. Garima Pulliam Globulin (S) [Mass/Vol] 2.6 g/dL Normal [facility] Comment on above: Performed By: #### C MP, BNP, CMADM ####[facility] Qqhomxhezl[address] [place] [address]Dr. Garima Pulliam Glucose [Mass/Vol] 103 mg/dL Normal 74-106 [facility] Comment on above: Performed By: #### C MP, BNP, CMADM ####[facility] Ypkqskgzae20[address] [place] [address]Dr. Garima Pulliam Potassium [Moles/Vol] 3.8 mmol/L Normal 3.5-5.1 [facility] Comment on above: Performed By: #### C MP, BNP, CMADM ####[facility] Vgvryqromz[address] [place] [address]Dr. Garima Pulliam Protein [Mass/Vol] 6.4 g/dL Normal 6.4-8.2 [facility] Comment on above: Performed By: #### C MP, BNP, CMADM ####[facility] Wxyfzqgnuf24[address] [place] [address]Dr. Garima Pulliam Sodium [Moles/Vol] 139 mmol/L Normal 136-145 [facility] Comment on above: Performed By: #### C MP, BNP, CMADM ####[facility] Kwqyiscjer84[address] [place] [address]Dr. Garima Pulliam Urea nitrogen [Mass/Vol] 7.0 mg/dL Normal 7.0-18.0 [facility] Comment on above: Performed By: #### C MP, BNP, CMADM ####[facility] Rqkjnnbpgw4733 [place] [address]Dr. Garima Pulliam Urea nitrogen/Creatinine [Mass ratio] 11.1 mg/mg Normal [facility] Comment on above: Performed By: #### C MP, BNP, CMADM ####[facility] Mgbpyyiqzy8[address] [place] [address]Dr. Garima Pulliam PROTIMEon 09-29-2022 INR Coag (PPP) [Relative time] 1.14 {INR} Normal [facility] Comment on above: Performed By: #### P T, PTT ####[facility] Xckzpbcbka5[address] [place] [address]Dr. Garima Pulliam INR GUIDELINES SEE BELOW Normal [facility] Comment on above: Result Comment: WESLEY RED INR: 2.0 - 3.0 CONDITIONS NOT LISTED BELOW 2.5 - 3.5 FOR PROSTHETIC HEART VALVE REPLACEMENT 2.5 - 3.5 RECURRENT THROMBOSIS Performed By: #### P T, PTT ####[facility] Thgcpyfhph[address] [place], [place] [address]Dr. Garima Pulliam PT Coag (PPP) [Time] 12.2 s Critically high 9.0-11.6 [facility] Comment on above: Performed By: #### P T, PTT ####[facility] Dzjhkkitbl[address] [place], [place] [address]Dr. Garima Pulliam PTTon 09-29-2022 aPTT Coag (Bld) [Time] 29.3 s Normal 22.3-36.2 [facility] Comment on above: Performed By: #### P T, PTT ####[facility] Ybdnlmnlwv[address] [place], [place] [address]Dr. Garima Pulliam XR CHEST 1 Von 09-29-2022 XR CHEST 1 V Normal [facility] CBC AUTO DIFFon 09-26-2022 BASO # 0.0 103/ul Normal 0.0-0.1 [facility] Comment on above: Performed By: #### C BC ####[facility] Yqfdbcbczp[address] [place], [place] [address]Dr. Garima Pulliam Basophils/100 WBC (Bld) 0.2 % Normal 0.2-2.0 [facility] Comment on above: Performed By: #### C BC ####[facility] Shwyictxsm86[address] [place], [place] [address]Dr. Garima Pulliam EO # 0.1 103/ul Normal 0.0-0.7 [facility] Comment on above: Performed By: #### C BC ####[facility] Stgjoaabsg3[address] [place] [address]Dr. Garima Pulliam Eosinophils/100 WBC (Bld) 1.0 % Normal 0.9-7.0 [facility] Comment on above: Performed By: #### C BC ####[facility] Yanvioxcua5[address] [place], [place] [address]Dr. Garima Pulliam Erythrocyte distribution width (RBC) [Ratio] 13.4 % Normal 11.0-15.0 [facility] Comment on above: Performed By: #### C BC ####[facility] Bkegjttjtu[address] [place], [place] [address]Dr. Garima Pulliam Hematocrit (Bld) [Volume fraction] 46.3 % Normal 42.0-54.0 [facility] Comment on above: Performed By: #### C BC ####[facility] Wuvudbrove[address] [place], [place] [address]Dr. Garima Pulliam Hemoglobin (Bld) [Mass/Vol] 15.3 g/dL Normal 14.0-18.0 [facility] Comment on above: Performed By: #### C BC ####[facility] Vhmwwgffov[address] [place], [place] [address]Dr. Garima Pulliam IG # 0.05 10e3/ul Critically high 0.00-0.03 [facility] Comment on above: Performed By: #### C BC ####[facility] Yfsrrvqehf[address] [place], [place] [address]Dr. Garima uPlliam IG % 0.4 % Normal 0.0-0.5 [facility] Comment on above: Performed By: #### C BC ####[facility] Wuxaefmlov[address] [place], [place] [address]DrAdalberto Garima Heraclio LYMPH # 1.7 103/ul Normal 1.2-3.8 [facility] Comment on above: Performed By: #### C BC ####[facility] Mmucrgludi[address] [place], [place] [address]Dr. Garima Heraclio Lymphocytes/100 WBC (Bld) 12.7 % Critically low 20.5-60.0 [facility] Comment on above: Performed By: #### C BC ####[facility] Mwuwufpanw[address] [place] [address]DrAdalberto Pulliam MANUAL DIFF REQ NO Normal [facility] Comment on above: Performed By: #### C BC ####[facility] Cmvheupfvr[address] [place] [address]Dr. Garima Pulliam MCH (RBC) [Entitic mass] 30.1 pg Normal 25.9-34.0 [facility] Comment on above: Performed By: #### C BC ####[facility] Vmajijjsbl[address] [place], [place] [address]Dr. Garima Pulliam MCHC (RBC) [Mass/Vol] 33.0 g/dL Normal 29.9-35.2 [facility] Comment on above: Performed By: #### C BC ####[facility] Gmonqgmcdy[address] [place], [place] [address]DrAdalberto Pulliam MCV (RBC) [Entitic vol] 91.1 fL Normal 80.0-94.0 [facility] Comment on above: Performed By: #### C BC ####[facility] Prrenwbkma[address] [place], [place] [address]DrAdalberto Pulliam MONO # 0.9 103/ul Critically high 0.3-0.8 [facility] Comment on above: Performed By: #### C BC ####[facility] Agqsiivvtz[address] [place], [place] [address]DrAdalberto Pulliam Monocytes/100 WBC (Bld) 7.0 % Normal 1.7-12.0 [facility] Comment on above: Performed By: #### C BC ####[facility] Aekhitpxqg[address] [place], [place] [address]DrAdalberto Pulliam NEUT # 10.4 103/ul Critically high 1.4-6.5 [facility] Comment on above: Performed By: #### C BC ####[facility] Adpzjqwvme[address] [place], [place] [address]DrAdalberto Pulliam Neutrophils/100 WBC (Bld) 78.7 % Critically high 43.0-75.0 [facility] Comment on above: Performed By: #### C BC ####[facility] Rumtcdkjar2817 [place] [address]DrAdalberto Pulliam Platelet mean volume (Bld) [Entitic vol] 8.9 fL Critically low 9.5-13.5 [facility] Comment on above: Performed By: #### C BC ####[facility] Ufoosictxi2582 [place] [address]Dr. Garima Pulliam PLT 195 103/ul Normal 150-450 [facility] Comment on above: Performed By: #### C BC ####[facility] Rbqhrpefpm[address] [place], [place] [address]Dr. Garima Pulliam RBC 5.08 106/ul Normal 4.70-6.10 [facility] Comment on above: Performed By: #### C BC ####[facility] Dohuhfgqju0835 [place] [address]DrAdalberto Pulliam WBC 13.2 103/ul Critically high 4.0-11.0 [facility] Comment on above: Performed By: #### C BC ####[facility] Tszqbkemhc[address] [place], [place] [address]DrAdalberto Pulliam PROF 14(COMP METB)on 022 Albumin [Mass/Vol] 3.5 g/dL Normal 3.4-5.0 [facility] Comment on above: Performed By: #### C DAVID HSTROPN ####[facility] Aecgnydrbb[address] [place] [address]DrAdalberto Pulliam Albumin/Globulin [Mass ratio] 1.2 {ratio} Normal [facility] Comment on above: Performed By: #### C RAFAT HERNANDEZTROPN ####[facility] F[address]oymenzv[address] [place] [address]DrAdalberto Pulliam ALP [Catalytic activity/Vol] 71 U/L Normal 46-116 [facility] Comment on above: Performed By: #### C RAFAT HERNANDEZTROPN ####[facility] Quuoaemrtk[address] [place], [place] [address]Dr. Garima Pulliam ALT [Catalytic activity/Vol] 37 U/L Normal 16-63 [facility] Comment on above: Performed By: #### C DAVID, HSTROPN ####[facility] Rmetlacryb5503 [place] [address]Dr. Garima Pulliam Anion gap [Moles/Vol] 4.8 mmol/L Normal [facility] Comment on above: Performed By: #### C DAVID, HSTROPN ####[facility] Wgiamsdrhu20[address] [place] [address]Dr. Garima Pulliam AST [Catalytic activity/Vol] 21 U/L Normal 15-37 [facility] Comment on above: Performed By: #### C DAVID, HSTROPN ####[facility] Owpsjroazd3950 [place] [address]Dr. Garima Pulliam Bilirubin [Mass/Vol] 0.3 mg/dL Normal 0.2-1.0 [facility] Comment on above: Performed By: #### C DAVID, HSTROPN ####[facility] Hfxxmzyzfa[address] [place], [place] [address]Dr. Garima Pulliam Calcium [Mass/Vol] 8.9 mg/dL Normal 8.5-10.1 [facility] Comment on above: Performed By: #### C DAVID, HSTROPN ####[facility] Olqnfxurfb6081 [place] [address]Dr. Garima Pulliam Chloride [Moles/Vol] 106 mmol/L Normal 98-107 [facility] Comment on above: Performed By: #### C DAVID, HSTROPN ####[facility] Cajcvmuggo[address] [place] [address]Dr. Garima Pulliam CO2 [Moles/Vol] 29.8 mmol/L Normal 21.0-32.0 [facility] Comment on above: Performed By: #### C DAVID, HSTROPN ####[facility] Kwnejvxubn4061 [place] [address]Dr. Garima Pulliam Creatinine [Mass/Vol] 0.68 mg/dL Critically low 0.70-1.30 [facility] Comment on above: Performed By: #### C MP, HSTROPN ####[facility] Teefkewcio[address] [place] [address]Dr. Chapislan Pulliam EGFR-AF POLISH >60 Normal >=60 [facility] Comment on above: Performed By: #### C MP, HSTROPN ####[facility] Wiinozdohn7222 [place] [id number]. Yirenu Pulliam EGFR-NON AF POLISH >60 Normal >=60 [facility] Comment on above: Performed By: #### C MP, HSTROPN ####[facility] Eeumeximhx08[address] [place] [address]Dr. Garima Pulliam Globulin (S) [Mass/Vol] 2.8 g/dL Normal [facility] Comment on above: Performed By: #### C MP, HSTROPN ####[facility] Zebugjiaez3434 [place] [address]Dr. Chapisrenu Pulliam Glucose [Mass/Vol] 133 mg/dL Critically high 74-106 [facility] Comment on above: Performed By: #### C MP, HSTROPN ####[facility] Glpekttjbg1562 [place] [address]Dr. Chapisrenu Pulliam Potassium [Moles/Vol] 3.6 mmol/L Normal 3.5-5.1 [facility] Comment on above: Performed By: #### C MP, HSTROPN ####[facility] Zoftlohdzp6485 [place] [address]Dr. Chapislan Pulliam Protein [Mass/Vol] 6.3 g/dL Critically low 6.4-8.2 [facility] Comment on above: Performed By: #### C MP, HSTROPN ####[facility] Hqztkxlznp2210 [place] [address]Dr. Garima Pulliam Sodium [Moles/Vol] 137 mmol/L Normal 136-145 [facility] Comment on above: Performed By: #### C MP, HSTROPN ####[facility] Brbdmtrtqg5968 [place] [address]Dr. Yilan Pulliam Urea nitrogen [Mass/Vol] 15.0 mg/dL Normal 7.0-18.0 [facility] Comment on above: Performed By: #### C DAVID HSTROPN ####[facility] Hjgsrytdqp3789 [place] [address]Dr. Chapisrenu Pulliam Urea nitrogen/Creatinine [Mass ratio] 22.1 mg/mg Normal [facility] Comment on above: Performed By: #### C DAVID HSTROPN ####[facility] Mxreebwgnl6955 [place] [address]Dr. Chapisrenu Pulliam TROPONIN, HIGH SENSITIVITYon 09-26-2022 HSTROP 12.8 pg/mL Normal 4.0-76.1 [facility] Comment on above: Result Comment: CUT- OFF POINTS HAVE BEEN ESTABLISHED BASED ON THE FOURTH UNIVERSAL DEFINITIONS OF MYOCARDIALINFARCTION. THE UPPER REFERENCE LIMIT (URL) OF TROPONIN, DEFINED THE 99TH PERCENTILE OFcTnI DISTRIBUTION IN A REFERENCE POPULATION, HAS BEEN CONFIRMED THE DECISION THRESHOLDFOR [place] DIAGNOSIS. Performed By: #### C DAVID HSTROPN ####[facility] T[address]aynwcis[address] [place], [place] [address]Dr. Chapisrenu Pulliam XR CHEST 1 Von 09-26-2022 XR CHEST 1 V Normal [facility] XR CHEST 1 Von 09-16-2022 XR CHEST 1 V Normal [facility] CBC AUTO DIFFon 09-15-2022 BASO # 0.0 103/ul Normal 0.0-0.1 [facility] Comment on above: Performed By: #### C BC ####[facility] Nzlvrjijoi7725 [place] [address]Dr. Chapisrenu Pulliam Basophils/100 WBC (Bld) 0.1 % Critically low 0.2-2.0 [facility] Comment on above: Performed By: #### C BC ####[facility] Npheqaksoe0354 [place] [address]Dr. Garima Pulliam EO # 0.0 103/ul Normal 0.0-0.7 [facility] Comment on above: Performed By: #### C BC ####[facility] Bdflicurml7082 [place] [address]Dr. Garima Pulliam Eosinophils/100 WBC (Bld) 0.1 % Critically low 0.9-7.0 [facility] Comment on above: Performed By: #### C BC ####[facility] Uqwsahfrqm1835 [place] [address]Dr. Garima Pulliam Erythrocyte distribution width (RBC) [Ratio] 14.1 % Normal 11.0-15.0 [facility] Comment on above: Performed By: #### C BC ####[facility] Xxfwlxamdn[address] [place], [place] [address]Dr. Garima Pulliam Hematocrit (Bld) [Volume fraction] 46.1 % Normal 42.0-54.0 [facility] Comment on above: Performed By: #### C BC ####[facility] Imxeqmrhyy[address] [place], [place] [address]Dr. Garima Pulliam Hemoglobin (Bld) [Mass/Vol] 15.0 g/dL Normal 14.0-18.0 [facility] Comment on above: Performed By: #### C BC ####[facility] Vyckuetpwf[address] [place], [place] [address]Dr. Garima Pulliam IG # 0.03 10e3/ul Normal 0.00-0.03 [facility] Comment on above: Performed By: #### C BC ####[facility] Gfreqybehl[address] [place], [place] [address]Dr. Garima Pulliam IG % 0.3 % Normal 0.0-0.5 [facility] Comment on above: Performed By: #### C BC ####[facility] Dhjnpwvjmc2691 [place] [address]Dr. Garima Pulliam LYMPH # 0.6 103/ul Critically low 1.2-3.8 [facility] Comment on above: Performed By: #### C BC ####[facility] Rdgvekrihu[address] [place], [place] [address]Dr. Garima Pulliam Lymphocytes/100 WBC (Bld) 5.8 % Critically low 20.5-60.0 [facility] Comment on above: Performed By: #### C BC ####[facility] Bbtepqtlbl3436 [place] [address]Dr. Garima Pulliam MANUAL DIFF REQ NO Normal [facility] Comment on above: Performed By: #### C BC ####[facility] Ikihdkajse16[address] [place] [address]Dr. Garima Pulliam MCH (RBC) [Entitic mass] 30.2 pg Normal 25.9-34.0 [facility] Comment on above: Performed By: #### C BC ####[facility] Kgagavottn26[address] [place] [address]Dr. Garima Pulliam MCHC (RBC) [Mass/Vol] 32.5 g/dL Normal 29.9-35.2 [facility] Comment on above: Performed By: #### C BC ####[facility] [address]qsqjbcpw[address] [place], [place] [address]Dr. Garima Heraclio MCV (RBC) [Entitic vol] 92.8 fL Normal 80.0-94.0 [facility] Comment on above: Performed By: #### C BC ####[facility] Bincrvmjpr[address] [place], [place] [address]Dr. Garima Heraclio MONO # 0.3 103/ul Normal 0.3-0.8 [facility] Comment on above: Performed By: #### C BC ####[facility] Dgnndvucdi7299 [place] [address]Dr. Chapisrenu Pulliam Monocytes/100 WBC (Bld) 3.2 % Normal 1.7-12.0 [facility] Comment on above: Performed By: #### C BC ####[facility] Xtkwsjyvpq2721 [place] [address]Dr. Chapisrenu Pulliam NEUT # 9.8 103/ul Critically high 1.4-6.5 [facility] Comment on above: Performed By: #### C BC ####[facility] R[address]hlfydzr[address] [place], [place] [address]Dr. Garima Heraclio Neutrophils/100 WBC (Bld) 90.5 % Critically high 43.0-75.0 [facility] Comment on above: Performed By: #### C BC ####[facility] Cpyvqqpstk8458 [place] [address]Dr. Garima Pulliam Platelet mean volume (Bld) [Entitic vol] 9.4 fL Critically low 9.5-13.5 [facility] Comment on above: Performed By: #### C BC ####[facility] Fifhxeiavx2173 [place] [address]Dr. Garima Pulliam PLT 208 103/ul Normal 150-450 [facility] Comment on above: Performed By: #### C BC ####[facility] Uwjttevuhw5654 [place] [address]Dr. Garima Pulliam RBC 4.97 106/ul Normal 4.70-6.10 [facility] Comment on above: Performed By: #### C BC ####[facility] Rnvsatrnjc[address] [place], [place] [address]Dr. Garima Pulliam WBC 10.8 103/ul Normal 4.0-11.0 [facility] Comment on above: Performed By: #### C BC ####[facility] Bhumsgtbzu[address] [place], [place] [address]Dr. Garima Pulliam PROF 14(COMP METB)on 022 Albumin [Mass/Vol] 4.0 g/dL Normal 3.4-5.0 [facility] Comment on above: Performed By: #### C MP ####[facility] Rfgyorphtj[address] [place], [place] [address]Dr. Garima Pulliam Albumin/Globulin [Mass ratio] 1.5 {ratio} Normal [facility] Comment on above: Performed By: #### C MP ####[facility] Drlijdttsm7011 [place] [address]Dr. Garima Pulliam ALP [Catalytic activity/Vol] 73 U/L Normal 46-116 [facility] Comment on above: Performed By: #### C MP ####[facility] Pbldsnoday[address] [place], [place] [address]Dr. Garima Pulliam ALT [Catalytic activity/Vol] 42 U/L Normal 16-63 [facility] Comment on above: Performed By: #### C MP ####[facility] Jvnoyjzzug[address] [place], [place] [address]Dr. Garima Pulliam Anion gap [Moles/Vol] 9.1 mmol/L Normal [facility] Comment on above: Performed By: #### C MP ####[facility] X[address]jzjzctb[address] [place], [place] [address]Dr. Garima Pulliam AST [Catalytic activity/Vol] 28 U/L Normal 15-37 [facility] Comment on above: Performed By: #### C MP ####[facility] Xobtqiupfj[address] [place], [place] [address]Dr. Garima Pulliam Bilirubin [Mass/Vol] 0.6 mg/dL Normal 0.2-1.0 [facility] Comment on above: Performed By: #### C MP ####[facility] Ufbzagxgsd85[address] [place], [place] [address]Dr. Garima Pulliam Calcium [Mass/Vol] 8.6 mg/dL Normal 8.5-10.1 [facility] Comment on above: Performed By: #### C MP ####[facility] Spchyilkup[address] [place], [place] [address]Dr. Garima Pulliam Chloride [Moles/Vol] 105 mmol/L Normal 98-107 [facility] Comment on above: Performed By: #### C MP ####[facility] Hnaokspkif[address] [place], [place] [address]Dr. Garima Pulliam CO2 [Moles/Vol] 28.5 mmol/L Normal 21.0-32.0 [facility] Comment on above: Performed By: #### C MP ####[facility] Yqtbeadueh[address] [place], [place] [address]Dr. Garima Pulliam Creatinine [Mass/Vol] 0.78 mg/dL Normal 0.70-1.30 [facility] Comment on above: Performed By: #### C MP ####[facility] Rsimlbinmc[address] [place], [place] [address]Dr. Garima Heraclio EGFR-AF POLISH >60 Normal >=60 [facility] Comment on above: Performed By: #### C MP ####[facility] Ybcesouppf[address] [place], [place] [address]Dr. Garima Heraclio EGFR-NON AF POLISH >60 Normal >=60 [facility] Comment on above: Performed By: #### C MP ####[facility] Ukgplihwaf[address] [place] [address]Dr. Garima Pulliam Globulin (S) [Mass/Vol] 2.7 g/dL Normal [facility] Comment on above: Performed By: #### C MP ####[facility] Iaftyhenxt8916 [place] [address]Dr. Garima Pulilam Glucose [Mass/Vol] 220 mg/dL Critically high 74-106 T [facility] Comment on above: Performed By: #### C MP ####[facility] Bjopneabkc6115 [place] [address]Dr. Garima Pulliam Potassium [Moles/Vol] 3.6 mmol/L Normal 3.5-5.1 [facility] Comment on above: Performed By: #### C MP ####[facility] Mgcwwpkmaw8112 [place] [address]Dr. Garima Pulliam Protein [Mass/Vol] 6.7 g/dL Normal 6.4-8.2 [facility] Comment on above: Performed By: #### C MP ####[facility] Sovtftktlb[address] [place], [place] [address]Dr. Garima Pulliam Sodium [Moles/Vol] 139 mmol/L Normal 136-145 [facility] Comment on above: Performed By: #### C MP ####[facility] Ykzdnkvgnd4305 [place] [address]Dr. Garima Pulliam Urea nitrogen [Mass/Vol] 11.0 mg/dL Normal 7.0-18.0 [facility] Comment on above: Performed By: #### C MP ####[facility] Mzahjwmdol299[address] [place] [address]Dr. Garima Heraclio Urea nitrogen/Creatinine [Mass ratio] 14.1 mg/mg Normal [facility] Comment on above: Performed By: #### C MP ####[facility] Mpxelsxfkp4201 [place] [address]Dr. Garima Pulliam CARDIAC NASH 3-6on 2 CK [Catalytic activity/Vol] 240 U/L Normal 39-308 [facility] Comment on above: Performed By: #### C MREP ####[facility] Ovggnmyldm12[address] [place] [address]Dr. Garima Pulliam CK.MB [Mass/Vol] 10.38 ng/mL Critically high <=3.60 Th [facility] Comment on above: Performed By: #### C MREP ####[facility] Qqgeqmsbrj[address] [place] [address]Dr. Garima Pulliam HSTROP 18.5 pg/mL Normal 4.0-76.1 [facility] Comment on above: Result Comment: CUT- OFF POINTS HAVE BEEN ESTABLISHED BASED ON THE FOURTH UNIVERSAL DEFINITIONS OF MYOCARDIALINFARCTION. THE UPPER REFERENCE LIMIT (URL) OF TROPONIN, DEFINED THE 99TH PERCENTILE OFcTnI DISTRIBUTION IN A REFERENCE POPULATION, HAS BEEN CONFIRMED THE DECISION THRESHOLDFOR [place] DIAGNOSIS. Performed By: #### C MREP ####[facility] Fgqmreubok[address] [place] [address]Dr. Garima Pulliam CK [Catalytic activity/Vol] 257 U/L Normal 39-308 [facility] Comment on above: Performed By: #### C MREP ####[facility] Puxuhxljel[address] [place], [place] [address]Dr. Garima Pulliam CK.MB [Mass/Vol] 9.89 ng/mL Critically high <=3.60 [facility] Comment on above: Performed By: #### C MREP ####[facility] Wmhfwcumpk[address] [place], [place] [address]Dr. Garima Pulliam HSTROP 16.9 pg/mL Normal 4.0-76.1 [facility] Comment on above: Result Comment: CUT- OFF POINTS HAVE BEEN ESTABLISHED BASED ON THE FOURTH UNIVERSAL DEFINITIONS OF MYOCARDIALINFARCTION. THE UPPER REFERENCE LIMIT (URL) OF TROPONIN, DEFINED THE 99TH PERCENTILE OFcTnI DISTRIBUTION IN A REFERENCE POPULATION, HAS BEEN CONFIRMED THE DECISION THRESHOLDFOR [place] DIAGNOSIS. Performed By: #### C MREP ####[facility] Clrvnrhtup[address] [place], [place] [address]Dr. Garima Pulliam CBC AUTO DIFFon 09-13-2022 BASO # 0.0 103/ul Normal 0.0-0.1 [facility] Comment on above: Performed By: #### C BC ####[facility] Ezrsjlcvgd11[address] [place], [place] [address]Dr. Garima Pulliam Basophils/100 WBC (Bld) 0.1 % Critically low 0.2-2.0 The [facility] Comment on above: Performed By: #### C BC ####[facility] Dtewipqotn[address] [place], [place] [address]Dr. Garima Pulliam EO # 0.0 103/ul Normal 0.0-0.7 The [facility] Comment on above: Performed By: #### C BC ####[facility] Swqhdcqxuu65[address] [place], [place] [address]Dr. Chapisrenu Heraclio Eosinophils/100 WBC (Bld) 0.0 % Critically low 0.9-7.0 The [facility] Comment on above: Performed By: #### C BC ####[facility] Ixzqdtbdsd24[address] [place], [place] [address]Dr. Garima Pulliam Erythrocyte distribution width (RBC) [Ratio] 13.6 % Normal 11.0-15.0 The [facility] Comment on above: Performed By: #### C BC ####[facility] Kxvmstpsvu[address] [place], [place] [address]Dr. Garima Pulliam Hematocrit (Bld) [Volume fraction] 48.2 % Normal 42.0-54.0 The [facility] Comment on above: Performed By: #### C BC ####[facility] Rmmiqyunki[address] [place], [place] [address]Dr. Garima Pulliam Hemoglobin (Bld) [Mass/Vol] 16.0 g/dL Normal 14.0-18.0 The [facility] Comment on above: Performed By: #### C BC ####[facility] Xceqeugeac[address] [place], [place] [address]Dr. Garima Pulliam IG # 0.02 10e3/ul Normal 0.00-0.03 The [facility] Comment on above: Performed By: #### C BC ####[facility] Wtvbahfslg9958 [place] [address]Dr. Chapisrenu Pulliam IG % 0.3 % Normal 0.0-0.5 The [facility] Comment on above: Performed By: #### C BC ####[facility] Hhccnlvjvo8253 [place] [address]Dr. Chapisrenu Heraclio LYMPH # 0.5 103/ul Critically low 1.2-3.8 [facility] Comment on above: Performed By: #### C BC ####[facility] Dlkpwyamgi5438 [place] [address]Dr. Chapisrenu Pulliam Lymphocytes/100 WBC (Bld) 7.7 % Critically low 20.5-60.0 The [facility] Comment on above: Performed By: #### C BC ####[facility] Lhgwbkypmj1898 [place] [address]Dr. Garima Pulliam MANUAL DIFF REQ NO Normal [facility] Comment on above: Performed By: #### C BC ####[facility] Spyiuidpqm3793 [place] [address]Dr. Garima Heraclio MCH (RBC) [Entitic mass] 30.6 pg Normal 25.9-34.0 The [facility] Comment on above: Performed By: #### C BC ####[facility] Tgyevmxxnd[address] [place], [place] [address]Dr. Garima Heraclio MCHC (RBC) [Mass/Vol] 33.2 g/dL Normal 29.9-35.2 [facility] Comment on above: Performed By: #### C BC ####[facility] Culcbblcpz3792 [place] [address]Dr. Chapisrenu Pulliam MCV (RBC) [Entitic vol] 92.2 fL Normal 80.0-94.0 [facility] Comment on above: Performed By: #### C BC ####[facility] Mtulvppdxp[address] [place], [place] [address]Dr. Garima Pulliam MONO # 0.0 103/ul Critically low 0.3-0.8 [facility] Comment on above: Performed By: #### C BC ####[facility] Fmjvyrtsyh2[address] [place], [place] [address]Dr. Garima Pulliam Monocytes/100 WBC (Bld) 0.4 % Critically low 1.7-12.0 The [facility] Comment on above: Performed By: #### C BC ####[facility] Urvxcfljvc1663 [place] [address]Dr. Garima Pulliam NEUT # 6.2 103/ul Normal 1.4-6.5 The [facility] Comment on above: Performed By: #### C BC ####[facility] Tgtbqsetae5213 [place] [address]Dr. Garima Pulliam Neutrophils/100 WBC (Bld) 91.5 % Critically high 43.0-75.0 The [facility] Comment on above: Performed By: #### C BC ####[facility] Lhritlgsvk7915 [place] [address]Dr. Garima Pulliam Platelet mean volume (Bld) [Entitic vol] 8.7 fL Critically low 9.5-13.5 The [facility] Comment on above: Performed By: #### C BC ####[facility] Amrcswzxwr6462 [place] [address]Dr. Garima Pulliam PLT 179 103/ul Normal 150-450 [facility] Comment on above: Performed By: #### C BC ####[facility] Memoyvlkft6498 [place] [address]Dr. Garima Pulliam RBC 5.23 106/ul Normal 4.70-6.10 The [facility] Comment on above: Performed By: #### C BC ####[facility] Srmydchtwu4886 [place] [address]Dr. Garima Pulliam WBC 6.7 103/ul Normal 4.0-11.0 [facility] Comment on above: Performed By: #### C BC ####[facility] Momuvkcsld0811 [place] [address]Dr. Garima Pulliam PROF CHEM 8 (BAS METB)on Anion gap [Moles/Vol] 12.1 mmol/L Normal Th [facility] Comment on above: Performed By: #### B MP ####[facility] Upjqslybfa0708 [place] [address]Dr. Garima Pulliam Calcium [Mass/Vol] 8.7 mg/dL Normal 8.5-10.1 [facility] Comment on above: Performed By: #### B MP ####[facility] Cozsjuyjpg5174 [place] [address]Dr. Garima Pulliam Chloride [Moles/Vol] 105 mmol/L Normal 98-107 [facility] Comment on above: Performed By: #### B MP ####[facility] Amdcoddado4775 [place] [address]Dr. Garima Pulliam CO2 [Moles/Vol] 25.5 mmol/L Normal 21.0-32.0 [facility] Comment on above: Performed By: #### B MP ####[facility] Jxoauhqvyj[address] [place], [place] [address]Dr. Garima Pulliam Creatinine [Mass/Vol] 0.63 mg/dL Critically low 0.70-1.30 The [facility] Comment on above: Performed By: #### B MP ####[facility] Cryotquzdl[address] [place], [place] [address]Dr. Garima Pulliam EGFR-AF POLISH >60 Normal >=60 [facility] Comment on above: Performed By: #### B MP ####[facility] L[address]ysrngxiq[address] [place], [place] [address]Dr. Garima Heraclio EGFR-NON AF POLISH >60 Normal >=60 [facility] Comment on above: Performed By: #### B MP ####[facility] Bepulctbxs[address] [place], [place] [address]Dr. Garima Pulliam Glucose [Mass/Vol] 162 mg/dL Critically high 74-106 [facility] Comment on above: Performed By: #### B MP ####[facility] Lrzzutveiv[address] [place], [place] [address]Dr. Garima Pulliam Potassium [Moles/Vol] 3.6 mmol/L Normal 3.5-5.1 The [facility] Comment on above: Performed By: #### B MP ####[facility] Pggcgtsnth[address] [place], [place] [address]Dr. Chapisrenu Pulliam Sodium [Moles/Vol] 139 mmol/L Normal 136-145 [facility] Comment on above: Performed By: #### B DAVID ####[facility] Trchfvmbew5209 [place] [address]Dr. Garima Pulliam Urea nitrogen [Mass/Vol] 9.0 mg/dL Normal 7.0-18.0 [facility] Comment on above: Performed By: #### B DAVID ####[facility] Rklobyjlms8067 [place] [address]Dr. Chapisrenu Pulliam Urea nitrogen/Creatinine [Mass ratio] 14.3 mg/mg Normal [facility] Comment on above: Performed By: #### B DAVID ####[facility] Omxfulozyb0919 [place] [address]Dr. Chapisrenu Pulliam CARDIAC NASH ADMITon 022 CK [Catalytic activity/Vol] 304 U/L Normal 39-308 [facility] Comment on above: Performed By: #### B NANCY HERNANDEZ ####[facility] Wbjjcxuezk0249 [place] [address]Dr. Chapisrenu Pulliam CK.MB [Mass/Vol] 11.81 ng/mL Critically high <=3.60 Th [facility] Comment on above: Performed By: #### B NANCY HERNANDEZ ####[facility] Fftnsrpghh1895 [place] [address]Dr. Garima Heraclio HSTROP 13.3 pg/mL Normal 4.0-76.1 [facility] Comment on above: Result Comment: CUT- OFF POINTS HAVE BEEN ESTABLISHED BASED ON THE FOURTH UNIVERSAL DEFINITIONS OF MYOCARDIALINFARCTION. THE UPPER REFERENCE LIMIT (URL) OF TROPONIN, DEFINED THE 99TH PERCENTILE OFcTnI DISTRIBUTION IN A REFERENCE POPULATION, HAS BEEN CONFIRMED THE DECISION THRESHOLDFOR [place] DIAGNOSIS. Performed By: #### NANCY Larkin MP ####[facility] Dtqprxcdjd5130 [place] [address]Dr. Garima Pulliam DORIS 133 ng/mL Critically high 16-96 [facility] Comment on above: Performed By: #### NANCY Larkin MP ####[facility] Funlqebubo0747 [place] [address]Dr. Garima Pulliam CBC AUTO DIFFon 09-12-2022 BASO # 0.0 103/ul Normal 0.0-0.1 The [facility] Comment on above: Performed By: #### C BC ####[facility] Csbhuzylks37[address] [place] [id number]. Garima Pulliam Basophils/100 WBC (Bld) 0.2 % Normal 0.2-2.0 The [facility] Comment on above: Performed By: #### C BC ####[facility] Tswbhkhzru3533 [place] [address]Dr. Garima Heraclio EO # 0.2 103/ul Normal 0.0-0.7 [facility] Comment on above: Performed By: #### C BC ####[facility] Oyxgpltzow4450 [place] [address]Dr. Garima Heraclio Eosinophils/100 WBC (Bld) 1.3 % Normal 0.9-7.0 The [facility] Comment on above: Performed By: #### C BC ####[facility] Jnomrrpusr8996 [place] [address]Dr. Garima Pulliam Erythrocyte distribution width (RBC) [Ratio] 13.7 % Normal 11.0-15.0 [facility] Comment on above: Performed By: #### C BC ####[facility] Haxerdoooi7059 [place] [address]Dr. Garima Pulliam Hematocrit (Bld) [Volume fraction] 46.4 % Normal 42.0-54.0 [facility] Comment on above: Performed By: #### C BC ####[facility] Mzkatoewbk4526 [place] [id number]. Garima Pulliam Hemoglobin (Bld) [Mass/Vol] 15.7 g/dL Normal 14.0-18.0 [facility] Comment on above: Performed By: #### C BC ####[facility] Ehqdtemdoc1590 [place] [id number]. Garima Heraclio IG # 0.04 10e3/ul Critically high 0.00-0.03 [facility] Comment on above: Performed By: #### C BC ####[facility] Edutljsndl1544 [place] [phone]. Garima Pulliam IG % 0.3 % Normal 0.0-0.5 [facility] Comment on above: Performed By: #### C BC ####[facility] Rwittzpxqe0831 [place], [place] [address]Rs. Garima Pulliam LYMPH # 1.7 103/ul Normal 1.2-3.8 [facility] Comment on above: Performed By: #### C BC ####[facility] Urrpimdzgu3951 [place] [phone]. Garima Pulliam Lymphocytes/100 WBC (Bld) 11.5 % Critically low 20.5-60.0 [facility] Comment on above: Performed By: #### C BC ####[facility] Rcvgtnagxc9715 [place] [phone]. Garima Pulliam MANUAL DIFF REQ NO Normal The [facility] Comment on above: Performed By: #### C BC ####[facility] Jqmlnhlwab6294 [place] [phone]. Garima Pulliam MCH (RBC) [Entitic mass] 31.0 pg Normal 25.9-34.0 [facility] Comment on above: Performed By: #### C BC ####[facility] Kaqahxzvii3775 [place] [phone]. Garima Pulliam MCHC (RBC) [Mass/Vol] 33.8 g/dL Normal 29.9-35.2 [facility] Comment on above: Performed By: #### C BC ####[facility] Zclvknygrh9841 [place] [phone]. Garima Pulliam MCV (RBC) [Entitic vol] 91.7 fL Normal 80.0-94.0 [facility] Comment on above: Performed By: #### C BC ####[facility] Xwaahwtdih8187 [place] [phone]. Garima Pulliam MONO # 0.8 103/ul Normal 0.3-0.8 [facility] Comment on above: Performed By: #### C BC ####[facility] Jqbctwldoo5562 [place] [phone]. Garima Pulliam Monocytes/100 WBC (Bld) 5.2 % Normal 1.7-12.0 [facility] Comment on above: Performed By: #### C BC ####[facility] Mxnmmokhnb5578 [place] [phone]. Garima Pulliam NEUT # 11.7 103/ul Critically high 1.4-6.5 [facility] Comment on above: Performed By: #### C BC ####[facility] Svfnidvrvc0750 [place] [phone]. Garima Pulliam Neutrophils/100 WBC (Bld) 81.5 % Critically high 43.0-75.0 [facility] Comment on above: Performed By: #### C BC ####[facility] Eygkzqjufy5113 [place] [phone]. Garima Pulliam Platelet mean volume (Bld) [Entitic vol] 8.6 fL Critically low 9.5-13.5 [facility] Comment on above: Performed By: #### C BC ####[facility] Rwqrlsjmjh1428 [place] [phone]. Garima Pulliam PLT 191 103/ul Normal 150-450 [facility] Comment on above: Performed By: #### C BC ####[facility] Kjyttxwbyj5456 [place] [phone]. Garima Pulliam RBC 5.06 106/ul Normal 4.70-6.10 [facility] Comment on above: Performed By: #### C BC ####[facility] [address]ce[address] [place], [place] [address]Dr. Garima Pulliam WBC 14.4 103/ul Critically high 4.0-11.0 [facility] Comment on above: Performed By: #### C BC ####[facility] Y[address]uyzjbos[address] [place], [place] [address]Dr. Garima Pulliam Covid-19 PCR (CVDTB)on 08-24 SARS-CoV-2 (COVID-19) RNA MARIE+probe Ql (Unsp spec) Not detected Normal NOT DETECTED [facility] Comment on above: Result Comment: When [...] for this test is supported by the [place] of Health and Human Service's declaration that [...] be used). Performed By: #### C VDTBH ####[facility] Yzdyziefrm3524 [place] [address]Dr. Garima Pulliam LACTATE/LACTIC ACIDon 2021 Lactate [Moles/Vol] 1.0 mmol/L Normal 0.4-1.9 [facility] Comment on above: Performed By: #### L ACT ####[facility] Stdjmcpapj[address] [place], [place] [address]Dr. Garima Pulliam PROF CHEM 8 (BAS METB)on Anion gap [Moles/Vol] 11.6 mmol/L Normal [facility] Comment on above: Performed By: #### NANCY Larkin MP ####[facility] Zznqvelhoh5197 [place] [address]Dr. Garima Pulliam Calcium [Mass/Vol] 9.2 mg/dL Normal 8.5-10.1 [facility] Comment on above: Performed By: #### NANCY Larkin MP ####[facility] Umonmgrqcw1773 [place] [address]Dr. Garima Pulliam Chloride [Moles/Vol] 105 mmol/L Normal 98-107 [facility] Comment on above: Performed By: #### NANCY Larkin MP ####[facility] Flgarmofwl2007 [place] [id number]. Garima Pulliam CO2 [Moles/Vol] 25.9 mmol/L Normal 21.0-32.0 [facility] Comment on above: Performed By: #### B DAVID, NANCY ####[facility] Dhczosoxuv1537 [place] [phone]. Garima Pulliam Creatinine [Mass/Vol] 0.72 mg/dL Normal 0.70-1.30 [facility] Comment on above: Performed By: #### B DAVID, CMAANA ROSA ####[facility] Qkznwghwel7072 [place] [phone]. Garima Pulliam EGFR-AF POLISH >60 Normal >=60 [facility] Comment on above: Performed By: #### B DAVID, NANCY ####[facility] Krueywaxmj1502 [place] [address]Dr. Garima Pulliam EGFR-NON AF POLISH >60 Normal >=60 [facility] Comment on above: Performed By: #### B DAVID, NANCY ####[facility] Haucayajmr2546 [place] [phone]. Garima Pulliam Glucose [Mass/Vol] 111 mg/dL Critically high 74-106 [facility] Comment on above: Performed By: #### B DAVID, NANCY ####[facility] Eskeylelbd5978 [place] [address]Dr. Garima Pulliam Potassium [Moles/Vol] 3.5 mmol/L Normal 3.5-5.1 [facility] Comment on above: Performed By: #### B DAVID, NANCY ####[facility] Bgccdxbzsq5783 [place] [phone]. Garima Pulliam Sodium [Moles/Vol] 139 mmol/L Normal 136-145 [facility] Comment on above: Performed By: #### B DAVID, NANCY ####[facility] Tcqntqzpka0278 [place] [address]Dr. Garima Pulliam Urea nitrogen [Mass/Vol] 7.0 mg/dL Normal 7.0-18.0 [facility] Comment on above: Performed By: #### B DAVID, NANCY ####[facility] Bicolnljwz0267 [place], [place] [address]r. Garima Pulliam Urea nitrogen/Creatinine [Mass ratio] 9.7 mg/mg Normal [facility] Comment on above: Performed By: #### B DAVID, NANCY ####[facility] Kogmvwqpkn8972 [place], [place] [address]Gf. Garima Pulliam XR CHEST 1 Von 09-12-2022 XR CHEST 1 V Normal [facility] Encounters Encounter Date Encounter Type Care Provider Facility Start: 04-04-2023 End: 04-05-2023 ambulatory KENTRELL CHAPIN Facility:[facility] Start: 03-30-2023 End: 03-31-2023 ambulatory KENTRELL CHAPNI Facility:[facility] Start: 03-27-2023 End: 03-28-2023 ambulatory OTONIEL [...] Start: 01-01-2023 End: 01-01-[address] MILADIS MELARA . Facility:[facility] Start: 12-25-2022 End: 12-26-2022 [...] Facility:[facility] Payers Date Payer Category Payer Unknown [id number] 1960 Medicaid [id number] 1960 Unknown [id number] 1960 Unknown [id number] 1954 Unknown [id number] 2.16.84 0.1.802150.3.579.2.593 1954 Unknown [id number] 2.16.84 0.1.800538.3.579.2.593 1954 Unknown [id number] 2.16.84 0.1.014438.3.579.2.593 1954 Unknown [id number] 2.16.84 0.1.325408.3.579.2.593 1954 Unknown [id number] 2.16.84 0.1.348365.3.579.2.593 1954 Unknown [id number] 2.16.84 0.1.875215.3.579.2.593 1954 Unknown [id number] 2.16.84 0.1.329557.3.579.2.593 1954 Unknown [id number] 2.16.84 0.1.201861.3.579.2.593 1954 Unknown [id number] 2.16.84 0.1.729009.3.579.2.593 1954 Unknown [id number] 2.16.84 0.1.265048.3.579.2.593 1954 Unknown [id number] 2.16.84 0.1.403275.3.579.2.593 1954 Unknown [id number] 2.16.84 0.1.047452.3.579.2.593 1954 Unknown [id number] 2.16.84 0.1.458972.3.579.2.593 1954 Unknown [id number] 2.16.84 0.1.715930.3.579.2.593 1954 Unknown [id number] 2.16.84 0.1.875736.3.579.2.593 1954 Unknown [id number] 2.16.84 0.1.628817.3.579.2.593 1954 Unknown [id number] 2.16.84 0.1.991666.3.579.2.593 1954 Unknown [id number] 2.16.84 0.1.588247.3.579.2.593 1954 Unknown [id number] 2.16.84 0.1.034807.3.579.2.593 1954 Unknown [id number] 2.16.84 0.1.686431.3.579.2.593 Summary Purpose Family History No Family History Records Found Advance Directives No Advanced Directives Records Found Additional Source Comments (unrecognized sect ion and content) No Status Records Found INFORMATION SOURCE (unrecogn ized section and content) DATE CREATED AUTHOR 04/08/2023 [facility] FOR RECORDS PERTAINING TO PATIENTS [...] BE BASED ON THE PRIMARY CLINICAL RECORDS. [facility] [employer] [place] [employer] [facility]. provides no warranty or guarantee of the accuracy or completeness of information in this document.
--- NOTE | 2024-03-05 19:47 | ED.SOB1 ---
HPI - SOB/Dyspnea General Chief Complaint: Shortness of Breath/Dyspnea Stated Complaint: SHORTNESS OF BREATH Time Seen by Provider: 03/05/24 19:44 Source: patient Mode of arrival: Wheelchair Limitations: no limitations History of Present Illness HPI Narrative: 68-year-old male presented for shortness of breath. He ran out of his albuterol for his nebulizer. He used the last 1 today. No fever or productive cough. He drove himself here and he does not complain of chest pain. Related Data Home Medications ?Medication ?Instructions ?Recorded ?Confirmed omeprazole 20 mg capsule,delayed 20 mg PO DAILY 10/22/23 03/05/24 release albuterol sulfate 2.5 mg/3 mL 2.5 mg inhalation Q6H PRN 11/02/23 03/05/24 (0.083 %) solution for nebulization shortness of breath or wheezing fluticasone 250 mcg-salmeterol 50 1 inh inhalation BID 12/25/23 03/01/24 mcg/dose blistr powdr for inhalation (Wixela Inhub) tiotropium bromide 2.5 2 inh inhalation BID 12/25/23 03/01/24 mcg/actuation mist for inhalation (Spiriva Respimat) losartan 100 1 tab PO DAILY 03/05/24 03/05/24 mg-hydrochlorothiazide 25 mg tablet (Hyzaar) Previous Rx's ?Medication ?Instructions ?Recorded albuterol sulfate 90 mcg/actuation 2 inh inhalation Q6H PRN shortness 12/17/23 aerosol inhaler of breath or wheezing #8.5 grams losartan 100 mg tablet 100 mg PO DAILY #30 tabs 12/27/23 metformin 500 mg tablet 500 mg PO BID #60 tabs 01/30/24 prednisone 10 mg tablet See Rx Instructions .Route 01/31/24 .COMPLEX #30 tabs albuterol sulfate 90 mcg/actuation 2 inh inhalation Q4H PRN shortness 03/01/24 aerosol inhaler of breath or wheezing #8.5 grams azithromycin 250 mg tablet See Rx Instructions PO .COMPLEX #6 03/01/24 (Zithromax Z-Luis) tabs prednisone 20 mg tablet See Rx Instructions .Route 03/01/24 .COMPLEX #12 tabs albuterol sulfate 2.5 mg/3 mL 2.5 mg (3 mL) inhalation Q6H PRN 03/05/24 (0.083 %) solution for nebulization shortness of breath or wheezing #90 mL Allergies Allergy/AdvReac Type Severity Reaction Status Date / Time No Known Drug Allergies Allergy Verified 03/05/24 19:39 Review of Systems ROS Narrative A ten point review of systems is negative except as noted above. PFSH PFS Medical History (Updated 03/05/24 @ 20:59 by Diego Lilly MD) Hypokalemia ?E87.6 - Hypokalemia (ICD-10) New onset type 2 diabetes mellitus ?E11.9 - Type 2 diabetes mellitus without complications (ICD-10) Lower extremity edema ?R60.0 - Localized edema (ICD-10) Edema ?R60.9 - Edema, unspecified (ICD-10) Acute hyperglycemia ?R73.9 - Hyperglycemia, unspecified (ICD-10) Tobacco abuse ?Z72.0 - Tobacco use (ICD-10) HTN (hypertension) ?I10 - Essential (primary) hypertension (ICD-10) Community acquired pneumonia ?J18.9 - Pneumonia, unspecified organism (ICD-10) Chronic obstructive pulmonary disease ?J44.9 - Chronic obstructive pulmonary disease, unspecified (ICD-10) Acute exacerbation of chronic obstructive pulmonary disease (COPD) ?J44.1 - Chronic obstructive pulmonary disease with (acute) exacerbation (ICD-10) RLL pneumonia ?J18.9 - Pneumonia, unspecified organism (ICD-10) COPD (chronic obstructive pulmonary disease) ?J44.9 - Chronic obstructive pulmonary disease, unspecified (ICD-10) Surgical History (Updated 01/29/24 @ 06:45 by Latonia Martin RN) Hx of tonsillectomy ?Z90.89 - Acquired absence of other organs (ICD-10) Family History (Updated 12/25/23 @ 21:28 by Kym Ordaz) Mother Family history of cancer Family history of hypertension Father Family history of cancer Social History Within the past year, how often did you have a drink containing alcohol: 4 or more times a week Within the past year, how many standard drinks containing alcohol did you have on a typical day: 3 or 4 Within the past year, how often did you have six or more drinks on one occasion: less than monthly Total score: 3 Score interpretation: A score of 4 or more indicates drinking is likely to affect patient's safety. Smoking status: Current every day smoker Non-prescribed substance use: cannabis (any form) Previous occupational history: retired Highest level of school completed/degree received: high school graduate Are you now , , , , never or living with a partner: In a typical week, how many times do you talk on the telephone with family, friends, or neighbors: twice per week How often do you get together with friends or relatives: once per week How often do you attend samaritan or taoism services: never Do you belong to any clubs or organizations such as samaritan groups unions, fraternal or athletic groups, or school groups: no Total score: 1 Score interpretation: A score of less than or equal to 1 indicates the most socially isolated. Little interest or pleasure in doing things: several days Feeling down, depressed, or hopeless: not at all Feel stressed/tense/nervous/anxious/difficulty sleeping: not at all Do you think of yourself as: straight/heterosexual Gender Identity: male Exam Narrative Exam Narrative: Nurses note and vital signs reviewed and patient is not hypoxic. General: The patient appears in no apparent respiratory distress. He is sitting upright on a chair and is speaking in full sentences. Skin: Warm, dry, no pallor noted. There is no rash noted. Head: Normocephalic, atraumatic Eye: Normal conjunctiva, no drainage Ears, Nose, Mouth, and Throat: oral mucosa is moist. Nares patent. Cardiovascular: Regular Rate and Rhythm Respiratory: Bilateral breath sounds are present and equal. A few rhonchi present. Good air movement present. Back: non-tender GI: Soft and nontender Musculoskeletal: The patient has no evidence of calf tenderness, no pitting edema, symmetrical pulses noted bilaterally Neurological: A&O, normal speech Psychiatric: Cooperative Constitutional Vital Signs, click to edit/add: Last Vital Signs Temp 98.3 F 03/05/24 19:39 Pulse 94 H 03/05/24 20:11 Resp 18 03/05/24 20:11 BP 194/100 H 03/05/24 19:39 Pulse Ox 94 L 03/05/24 20:11 O2 Del Method Room Air 03/05/24 20:11 Course Vital Signs Vital signs: Vital Signs Temperature 98.3 F 03/05/24 19:39 Pulse Rate 69 03/05/24 19:39 Respiratory Rate 18 03/05/24 19:39 Blood Pressure 194/100 H 03/05/24 19:39 Pulse Oximetry 93 L 03/05/24 19:39 Oxygen Delivery Method Room Air 03/05/24 19:39 Temperature 98.3 F 03/05/24 19:39 Pulse Rate 94 H 03/05/24 20:11 Respiratory Rate 18 03/05/24 20:11 Blood Pressure 194/100 H 03/05/24 19:39 Pulse Oximetry 94 L 03/05/24 20:11 Oxygen Delivery Method Room Air 03/05/24 20:11 MDM - SOB/Dyspnea MDM Narrative Medical decision making narrative: He was given an aerosol treatment and feels much better and is able to be discharged home. Prescription for albuterol was sent to his pharmacy and he was given ampules tonight as well. Findings are discussed with the patient. Differential Diagnosis Differential diagnosis: Likely acute exacerbation of chronic obstructive airways disease Discharge Plan Discharge Stand Alone Forms: Portal Instructions Chief Complaint: Shortness of Breath/Dyspnea Clinical Impression: Medication refill, COPD (chronic obstructive pulmonary disease) Patient Disposition: Home, Self-Care Time of Disposition Decision: 20:59 Condition: Good Mode of Transportation: Private Vehicle Prescriptions / Home Meds: New albuterol sulfate 2.5 mg /3 mL (0.083 %) solution for nebulization 2.5 mg inhalation Q6H PRN (Reason: shortness of breath or wheezing) Qty: 90 0RF No Action omeprazole 20 mg capsule,delayed release(DR/EC) 20 mg PO DAILY albuterol sulfate 2.5 mg /3 mL (0.083 %) solution for nebulization 2.5 mg inhalation Q6H PRN (Reason: shortness of breath or wheezing) Spiriva Respimat 2.5 mcg/actuation mist 2 inh inhalation BID fluticasone propion-salmeterol [Wixela Inhub] 250-50 mcg/dose blister with device 1 inh inhalation BID losartan 100 mg tablet 100 mg PO DAILY Qty: 30 11RF metformin 500 mg tablet 500 mg PO BID Qty: 60 0RF prednisone 10 mg tablet See Rx Instructions .ROUTE .COMPLEX Qty: 30 0RF Rx Instructions: 4 by mouth daily for three days then 3 by mouth daily for three days then 2 by mouth daily for three days then 1 by mouth daily for three days losartan-hydrochlorothiazide [Hyzaar] 100-25 mg tablet 1 tab PO DAILY albuterol sulfate 90 mcg/actuation HFA aerosol inhaler 2 inh inhalation Q6H PRN (Reason: shortness of breath or wheezing) Qty: 8.5 2RF azithromycin [Zithromax Z-Luis] 250 mg tablet See Rx Instructions .ROUTE .COMPLEX Qty: 6 0RF Rx Instructions: For 250 mg dose pack: take 500 mg today (day 1), then 250 mg for 4 days (days 2-5) prednisone 20 mg tablet See Rx Instructions .ROUTE .COMPLEX Qty: 12 0RF Rx Instructions: 3 tabs daily for 2 days, then 2 tabs daily for 2 days, then 1 tab daily for 2 days albuterol sulfate 90 mcg/actuation HFA aerosol inhaler 2 inh inhalation Q4H PRN (Reason: shortness of breath or wheezing) Qty: 8.5 0RF Print Language: Micronesian Instructions: COPD (Chronic Obstructive Pulmonary Disease) (ED), Medicine Refill (ED) Referrals: Physician,Non-Staff, MD [Primary Care Provider] - 1 week
[2024-03-05 19:53] VITALS: O2SAT 93
[2024-03-05] MEDS: ALBUTEROL SULFATE 2.5 MG/3 ML VIAL NEB IH ×3 (20:09→21:10)
[2024-03-05 20:11] VITALS: PULSE 94; O2SAT 94
== END 2024-03-05 21:17 | disposition home or self-care (01) ==
PROVIDERS: Emergency Provider Emergency Medicine
DX: J44.9 Chronic obstructive pulmonary disease, unspecified (principal); Z76.0 Encounter for issue of repeat prescription; E11.9 Type 2 diabetes mellitus without complications; I10 Essential (primary) hypertension; Z87.01 Personal history of pneumonia (recurrent); F17.210 Nicotine dependence, cigarettes, uncomplicated; F12.90 Cannabis use, unspecified, uncomplicated; Z79.899 Other long term (current) drug therapy
CPT/HCPCS: 94640; 99284

== ENCOUNTER 2024-03-12 16:47 | Emergency (ER) | payer MEDICARE, SELFPAY ==
[2024-03-12 16:52] VITALS: BP 210/112; PULSE 74; TEMP 36.8; O2SAT 96; BMI 24.9
[2024-03-12 16:57] VITALS: O2SAT 95
--- NOTE | 2024-03-12 17:02 | ED.SOB1 ---
HPI - SOB/Dyspnea General Chief Complaint: Shortness of Breath/Dyspnea Stated Complaint: Shortness of Breath Time Seen by Provider: 03/12/24 16:50 Source: patient Mode of arrival: Wheelchair History of Present Illness HPI Narrative: Patient is a 68-year-old male with a history of COPD who is well-known to this emergency department, presents for chest congestion requesting a breathing treatment. He was seen here 1 week ago for the same. He was seen by myself 2 weeks ago for the same with unremarkable chest x-ray and labs. He presents to the ER with no tachycardia or hypoxia. He was noted to be hypertensive, he does not believe he took his blood pressure medication today, patient's prescription pharmacy list shows that he has not had a prescription of losartan filled in over a month and is likely out of this at medication. He denies chest pain, fevers, vomiting. He is sitting at bedside chair at time of my evaluation, speaking and breathing easily. Related Data Home Medications ?Medication ?Instructions ?Recorded ?Confirmed omeprazole 20 mg capsule,delayed 20 mg PO DAILY 10/22/23 03/05/24 release albuterol sulfate 2.5 mg/3 mL 2.5 mg inhalation Q6H PRN 11/02/23 03/05/24 (0.083 %) solution for nebulization shortness of breath or wheezing fluticasone 250 mcg-salmeterol 50 1 inh inhalation BID 12/25/23 03/01/24 mcg/dose blistr powdr for inhalation (Wixela Inhub) tiotropium bromide 2.5 2 inh inhalation BID 12/25/23 03/01/24 mcg/actuation mist for inhalation (Spiriva Respimat) losartan 100 1 tab PO DAILY 03/05/24 03/05/24 mg-hydrochlorothiazide 25 mg tablet (Hyzaar) Previous Rx's ?Medication ?Instructions ?Recorded albuterol sulfate 90 mcg/actuation 2 inh inhalation Q6H PRN shortness 12/17/23 aerosol inhaler of breath or wheezing #8.5 grams losartan 100 mg tablet 100 mg PO DAILY #30 tabs 12/27/23 metformin 500 mg tablet 500 mg PO BID #60 tabs 01/30/24 prednisone 10 mg tablet See Rx Instructions .Route 01/31/24 .COMPLEX #30 tabs albuterol sulfate 90 mcg/actuation 2 inh inhalation Q4H PRN shortness 03/01/24 aerosol inhaler of breath or wheezing #8.5 grams azithromycin 250 mg tablet See Rx Instructions PO .COMPLEX #6 03/01/24 (Zithromax Z-Luis) tabs prednisone 20 mg tablet See Rx Instructions .Route 03/01/24 .COMPLEX #12 tabs albuterol sulfate 2.5 mg/3 mL 2.5 mg (3 mL) inhalation Q6H PRN 03/05/24 (0.083 %) solution for nebulization shortness of breath or wheezing #90 mL losartan 100 mg tablet 100 mg PO DAILY #30 tabs 03/12/24 Allergies Allergy/AdvReac Type Severity Reaction Status Date / Time No Known Drug Allergies Allergy Verified 03/05/24 19:39 [facility] Medical History (Updated 03/12/24 @ 17:31 by PALMIRA Pederson) Hypokalemia ?E87.6 - Hypokalemia (ICD-10) New onset type 2 diabetes mellitus ?E11.9 - Type 2 diabetes mellitus without complications (ICD-10) Lower extremity edema ?R60.0 - Localized edema (ICD-10) Edema ?R60.9 - Edema, unspecified (ICD-10) Acute hyperglycemia ?R73.9 - Hyperglycemia, unspecified (ICD-10) Tobacco abuse ?Z72.0 - Tobacco use (ICD-10) HTN (hypertension) ?I10 - Essential (primary) hypertension (ICD-10) Community acquired pneumonia ?J18.9 - Pneumonia, unspecified organism (ICD-10) Chronic obstructive pulmonary disease ?J44.9 - Chronic obstructive pulmonary disease, unspecified (ICD-10) Acute exacerbation of chronic obstructive pulmonary disease (COPD) ?J44.1 - Chronic obstructive pulmonary disease with (acute) exacerbation (ICD-10) RLL pneumonia ?J18.9 - Pneumonia, unspecified organism (ICD-10) COPD (chronic obstructive pulmonary disease) ?J44.9 - Chronic obstructive pulmonary disease, unspecified (ICD-10) Surgical History (Updated 01/29/24 @ 06:45 by Latonia Martin RN) Hx of tonsillectomy ?Z90.89 - Acquired absence of other organs (ICD-10) Family History (Updated 12/25/23 @ 21:28 by Kym Ordaz) Mother Family history of cancer Family history of hypertension Father Family history of cancer Social History Within the past year, how often did you have a drink containing alcohol: 4 or more times a week Within the past year, how many standard drinks containing alcohol did you have on a typical day: 3 or 4 Within the past year, how often did you have six or more drinks on one occasion: less than monthly Total score: 3 Score interpretation: A score of 4 or more indicates drinking is likely to affect patient's safety. Smoking status: Current every day smoker Non-prescribed substance use: cannabis (any form) Previous occupational history: retired Highest level of school completed/degree received: high school graduate Are you now , , , , never or living with a partner: In a typical week, how many times do you talk on the telephone with family, friends, or neighbors: twice per week How often do you get together with friends or relatives: once per week How often do you attend pentecostalism or cheondoism services: never Do you belong to any clubs or organizations such as pentecostalism groups unions, [employer] or athletic groups, or school groups: no Total score: 1 Score interpretation: A score of less than or equal to 1 indicates the most socially isolated. Little interest or pleasure in doing things: several days Feeling down, depressed, or hopeless: not at all Feel stressed/tense/nervous/anxious/difficulty sleeping: not at all Do you think of yourself as: straight/heterosexual Gender Identity: male Exam Constitutional Vital Signs, click to edit/add: Last Vital Signs Temp 98.3 F 03/12/24 16:52 Pulse 74 03/12/24 16:52 Resp 20 03/12/24 16:52 BP 200/98 H 03/12/24 17:27 Pulse Ox 92 L 03/12/24 17:27 O2 Del Method Room Air 03/12/24 17:18 Course Vital Signs Vital signs: Vital Signs Temperature 98.3 F 03/12/24 16:52 Pulse Rate 74 03/12/24 16:52 Respiratory Rate 20 03/12/24 16:52 Blood Pressure 210/112 H 03/12/24 16:52 Pulse Oximetry 96 03/12/24 16:52 Oxygen Delivery Method Room Air 03/12/24 16:52 Temperature 98.3 F 03/12/24 16:52 Pulse Rate 74 03/12/24 16:52 Respiratory Rate 20 03/12/24 16:52 Blood Pressure 200/98 H 03/12/24 17:27 Pulse Oximetry 92 L 03/12/24 17:27 Oxygen Delivery Method Room Air 03/12/24 17:18 MDM - SOB/Dyspnea MDM Narrative Medical decision making narrative: I discussed a full workup with the patient including EKG, lab studies, chest x-ray. Patient had this workup 2 weeks ago and he does not feel his symptoms are severe enough to require this, he declined lab testing and chest x-ray. He was treated with losartan for the high blood pressure in the ER. He has no other focal medical complaints and would just like to have a breathing treatment. Albuterol breathing treatment given at bedside. Repeat blood pressure is 200/98. Patient with no complaints of severe shortness of breath, he has no chest pain in the ER. No sputum production, fevers or hemoptysis. He declined a workup for his COPD and requested a breathing treatment. He was treated with losartan for his blood pressure and will be given a prescription of losartan for home. He was reevaluated by attending physician prior to discharge. Follow-up with PCP and return to the ER if symptoms change or worsen Medical Records Attestation: I reviewed the patient's medical records. Discharge Plan Discharge Stand Alone Forms: Portal Instructions Chief Complaint: Shortness of Breath/Dyspnea Clinical Impression: Medication refill, COPD (chronic obstructive pulmonary disease), Hypertension Patient Disposition: Home, Self-Care Time of Disposition Decision: 17:31 Condition: Good Prescriptions / Home Meds: New losartan 100 mg tablet 100 mg PO DAILY Qty: 30 0RF No Action omeprazole 20 mg capsule,delayed release(DR/EC) 20 mg PO DAILY albuterol sulfate 2.5 mg /3 mL (0.083 %) solution for nebulization 2.5 mg inhalation Q6H PRN (Reason: shortness of breath or wheezing) Spiriva Respimat 2.5 mcg/actuation mist 2 inh inhalation BID fluticasone propion-salmeterol [Wixela Inhub] 250-50 mcg/dose blister with device 1 inh inhalation BID losartan 100 mg tablet 100 mg PO DAILY Qty: 30 11RF metformin 500 mg tablet 500 mg PO BID Qty: 60 0RF prednisone 10 mg tablet See Rx Instructions .ROUTE .COMPLEX Qty: 30 0RF Rx Instructions: 4 by mouth daily for three days then 3 by mouth daily for three days then 2 by mouth daily for three days then 1 by mouth daily for three days losartan-hydrochlorothiazide [Hyzaar] 100-25 mg tablet 1 tab PO DAILY albuterol sulfate 2.5 mg /3 mL (0.083 %) solution for nebulization 2.5 mg inhalation Q6H PRN (Reason: shortness of breath or wheezing) Qty: 90 0RF albuterol sulfate 90 mcg/actuation HFA aerosol inhaler 2 inh inhalation Q6H PRN (Reason: shortness of breath or wheezing) Qty: 8.5 2RF azithromycin [Zithromax Z-Luis] 250 mg tablet See Rx Instructions .ROUTE .COMPLEX Qty: 6 0RF Rx Instructions: For 250 mg dose pack: take 500 mg today (day 1), then 250 mg for 4 days (days 2-5) prednisone 20 mg tablet See Rx Instructions .ROUTE .COMPLEX Qty: 12 0RF Rx Instructions: 3 tabs daily for 2 days, then 2 tabs daily for 2 days, then 1 tab daily for 2 days albuterol sulfate 90 mcg/actuation HFA aerosol inhaler 2 inh inhalation Q4H PRN (Reason: shortness of breath or wheezing) Qty: 8.5 0RF Print Language: Tanzanian Instructions: COPD (Chronic Obstructive Pulmonary Disease) (ED), Chronic Hypertension (ED) Referrals: Physician,Non-Staff, MD [Primary Care Provider] - 1 week
[2024-03-12 17:13] VITALS: BP 210/112
[2024-03-12] MEDS: LOSARTAN POTASSIUM 50 MG TABLET 100 MG PO (17:13)
[2024-03-12] MEDS: ALBUTEROL SULFATE 2.5 MG/3 ML VIAL NEB IH (17:17)
[2024-03-12 17:18] VITALS: O2SAT 94
--- OUTSIDE RECORDS SUMMARY | 2024-03-12 17:22 | XMS_ITS | CCD ---
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 Name Role Phone REQUEST, NONE LISTED Primary [...] (1 source) Penicillin Drug Allergy [facility] Repository Problems Active Problems Problem Classification Problem [...] treater helper (current) drug therapy; Translations: [OTH GROUP HOME CURRENT DRUG THERAPY] Onset: 04-07-2023 Episodic [...] BASO # 0.0 103/ul Normal 0.0-0.1 [facility] Comment on above: Performed By: #### C BC ####[facility] Spkwrflnbq[address] [place], [place] [address]DrAdalberto Pulliam Basophils/100 WBC (Bld) 0.3 % Normal 0.2-2.0 [facility] Comment on above: Performed By: #### C BC ####[facility] Ufvbcguebo[address] [place], [place] [address]DrAdalberto Pulliam EO # 0.3 103/ul Normal 0.0-0.7 [facility] Comment on above: Performed By: #### C BC ####[facility] Wxfbradhzr[address] [place], [place] [address]DrAdalberto Pulliam Eosinophils/100 WBC (Bld) 2.8 % Normal 0.9-7.0 [facility] Comment on above: Performed By: #### C BC ####[facility] [address]qourfpv[address] [place] [address]Dr. Garima Pulliam Erythrocyte distribution width (RBC) [Ratio] 13.4 % Normal 11.0-15.0 [facility] Comment on above: Performed By: #### C BC ####[facility] Agogepshho[address] [place], [place] [address]Dr. Garima Pulliam Hematocrit (Bld) [Volume fraction] 45.7 % Normal 42.0-54.0 [facility] Comment on above: Performed By: #### C BC ####[facility] Jnayscywdi4[address] [place], [place] [address]Dr. Garima Pulliam Hemoglobin (Bld) [Mass/Vol] 15.2 g/dL Normal 14.0-18.0 [facility] Comment on above: Performed By: #### C BC ####[facility] Kjricywmkr[address] [place], [place] [address]Dr. Garima Pulliam IG # 0.02 10e3/ul Normal 0.00-0.03 [facility] Comment on above: Performed By: #### C BC ####[facility] Kfqfvtbqrd[address] [place], [place] [address]Dr. Garima Pulliam IG % 0.2 % Normal 0.0-0.5 [facility] Comment on above: Performed By: #### C BC ####[facility] Qpsfsqbmda37[address] [place], [place] [address]Dr. Garima Pulliam LYMPH # 2.1 103/ul Normal 1.2-3.8 [facility] Comment on above: Performed By: #### C BC ####[facility] Inkhkvbpgf28[address] [place], [place] [address]Dr. Garima Pulliam Lymphocytes/100 WBC (Bld) 23.7 % Normal 20.5-60.0 [facility] Comment on above: Performed By: #### C BC ####[facility] Mebbd[address]frud[address] [place] [address]. Chapisrenu Pulliam MANUAL DIFF REQ NO Normal [facility] Comment on above: Performed By: #### C BC ####[facility] Uuglgsejxb[address] [place] [address]Dr. Garima Heraclio MCH (RBC) [Entitic mass] 30.4 pg Normal 25.9-34.0 [facility] Comment on above: Performed By: #### C BC ####[facility] Hjcsheetoc8650[address] [place], [place] [address]Dr. Garima Heraclio MCHC (RBC) [Mass/Vol] 33.3 g/dL Normal 29.9-35.2 [facility] Comment on above: Performed By: #### C BC ####[facility] Tzrolxlinw6[address] [place], [place] [address]Dr. Garima Pulliam MCV (RBC) [Entitic vol] 91.4 fL Normal 80.0-94.0 [facility] Comment on above: Performed By: #### C BC ####[facility] Whyievtunt26[address] [place], [place] [address]Dr. Garima Pulliam MONO # 0.7 103/ul Normal 0.3-0.8 [facility] Comment on above: Performed By: #### C BC ####[facility] Qmrgdwlyfk033[address] [place], [place] [address]Dr. Garima Pulliam Monocytes/100 WBC (Bld) 8.3 % Normal 1.7-12.0 [facility] Comment on above: Performed By: #### C BC ####[facility] Fqhltioons6976[address] [place], [place] [address]DrAdalberto Pulliam NEUT # 5.8 103/ul Normal 1.4-6.5 [facility] Comment on above: Performed By: #### C BC ####[facility] Zgwvqwkmee[address] [place], [place] [address]Dr. Garima Pulliam Neutrophils/100 WBC (Bld) 64.7 % Normal 43.0-75.0 [facility] Comment on above: Performed By: #### C BC ####[facility] Xnfhfjfhln7155[address] [place], [place] [address]Dr. Garima Heraclio Platelet mean volume (Bld) [Entitic vol] 8.6 fL Critically low 9.5-13.5 [facility] Comment on above: Performed By: #### C BC ####[facility] Vecqllbudz39[address] [place] [address]Dr. Chapisrenu Heraclio PLT 230 103/ul Normal 150-450 [facility] Comment on above: Performed By: #### C BC ####[facility] Pxyfikfhhy[address] [place] [address]Dr. Garima Pulliam RBC 5.00 106/ul Normal 4.70-6.10 [facility] Comment on above: Performed By: #### C BC ####[facility] Htjyixxiwr[address] [place], [place] [address]Dr. Garima Pulliam WBC 9.0 103/ul Normal 4.0-11.0 [facility] Comment on above: Performed By: #### C BC ####[facility] Awehjiszzz12[address] [place], [place] [address]DrAdalberto Pulliam MAGNESIUMon 04-04-2023 Magnesium [Mass/Vol] 1.8 mg/dL Normal 1.8-2.4 [facility] Comment on above: Performed By: #### M G ####[facility] Jesarudcwi8878[address] [place], [place] [address]DrAdalberto Pulliam PROF 14(COMP METB)on 023 Albumin [Mass/Vol] 3.8 g/dL Normal 3.4-5.0 [facility] Comment on above: Performed By: #### C MP ####[facility] Bknqbpxnta[address] [place] [address]DrAdalberto Pulliam Albumin/Globulin [Mass ratio] 1.2 {ratio} Normal [facility] Comment on above: Performed By: #### C MP ####[facility] Ngqdpychkw74[address] [place] [address]DrAdalberto Pulliam ALP [Catalytic activity/Vol] 84 U/L Normal 46-116 [facility] Comment on above: Performed By: #### C MP ####[facility] Rixmjtlvgk[address] [place] [id number]. Garima Pulliam ALT [Catalytic activity/Vol] 31 U/L Normal 16-63 [facility] Comment on above: Performed By: #### C MP ####[facility] Oghsbpxpzc058[address] [place], [place] [address]Dr. Garima Pulliam Anion gap [Moles/Vol] 12.2 mmol/L Normal Th e [facility] Comment on above: Performed By: #### C MP ####[facility] Uthrtgwild299[address] [place], [place] [address]Dr. Garima Pulliam AST [Catalytic activity/Vol] 23 U/L Normal 15-37 [facility] Comment on above: Performed By: #### C MP ####[facility] Exghbkekye6[address] [place], [place] [address]Dr. Garima Pulliam Bilirubin [Mass/Vol] 0.5 mg/dL Normal 0.2-1.0 [facility] Comment on above: Performed By: #### C MP ####[facility] Ecmsmiqcyh6564[address] [place], [place] [address]Dr. Garima Pulliam Calcium [Mass/Vol] 9.2 mg/dL Normal 8.5-10.1 [facility] Comment on above: Performed By: #### C MP ####[facility] Shuaeagwkr3970[address] [place], [place] [address]Dr. Garima Pulliam Chloride [Moles/Vol] 103 mmol/L Normal 98-107 [facility] Comment on above: Performed By: #### C MP ####[facility] Gswqgdoeix8429[address] [place], [place] [address]Dr. Garima Pulliam CO2 [Moles/Vol] 28.5 mmol/L Normal 21.0-32.0 [facility] Comment on above: Performed By: #### C MP ####[facility] Xqbbwjfnjw[address] [place], [place] [address]Dr. Garima Pulliam Creatinine [Mass/Vol] 0.74 mg/dL Normal 0.70-1.30 [facility] Comment on above: Performed By: #### C MP ####[facility] Ujfxeogkom9286[address] [place], [place] [address]Dr. Garima Pulliam EGFR-AF LEBANESE >60 Normal >=60 [facility] Comment on above: Performed By: #### C MP ####[facility] Yjgazkmokj37[address] [place] [id number]. Garima Pulliam EGFR-NON AF LEBANESE >60 Normal >=60 [facility] Comment on above: Performed By: #### C MP ####[facility] Zjlssunrrn6[address] [place] [id number]. Garima Heraclio Globulin (S) [Mass/Vol] 3.1 g/dL Normal [facility] Comment on above: Performed By: #### C MP ####[facility] Xkodpmtszk[address] [place] [address]Dr. Garima Heraclio Glucose [Mass/Vol] 93 mg/dL Normal 74-106 [facility] Comment on above: Performed By: #### C MP ####[facility] Zshlypxjwk89[address] [place] [address]Dr. Garima Heraclio Potassium [Moles/Vol] 3.7 mmol/L Normal 3.5-5.1 [facility] Comment on above: Performed By: #### C MP ####[facility] Sbyteqyxft[address] [place], [place] [address]Dr. Garima Heraclio Protein [Mass/Vol] 6.9 g/dL Normal 6.4-8.2 [facility] Comment on above: Performed By: #### C MP ####[facility] Kqsucodrbb14[address] [place] [address]Dr. Garima Heraclio Sodium [Moles/Vol] 140 mmol/L Normal 136-145 [facility] Comment on above: Performed By: #### C MP ####[facility] Prhnzlidit[address] [place] [address]Dr. Garima Heraclio Urea nitrogen [Mass/Vol] 8.0 mg/dL Normal 7.0-18.0 [facility] Comment on above: Performed By: #### C MP ####[facility] Lsvkymnxnq54[address] [place] [id number]. Chapisrenu Heraclio Urea nitrogen/Creatinine [Mass ratio] 10.8 mg/mg Normal [facility] Comment on above: Performed By: #### C MP ####[facility] Usmecmbofd[address] [place] [address]Dr. Garima Pulliam AMMONIAon 03-30-2023 Ammonia (P) [Moles/Vol] 11 umol/L Normal 11-32 [facility] Comment on above: Performed By: #### A MM ####[facility] Wycaqkpsyl19[address] [place], [place] [address]Dr. Garima Pulliam CARDIAC NASH ADMITon 023 CK [Catalytic activity/Vol] 232 U/L Normal 39-308 [facility] Comment on above: Performed By: #### C NANCY HERNANDEZ ####[facility] Stqpiipqnt[address] [place], [place] [address]Dr. Garima Pulliam CK.MB [Mass/Vol] 4.83 ng/mL Critically high <=3.60 [facility] Comment on above: Performed By: #### C NANCY HERNANDEZ ####[facility] Lnmidmpxcn4[address] [place], [place] [address]Dr. Garima Heraclio HSTROP 10.5 pg/mL Normal 4.0-76.1 [facility] Comment on above: Result Comment: CUT- OFF POINTS HAVE BEEN ESTABLISHED BASED ON THE FOURTH UNIVERSAL DEFINITIONS OF MYOCARDIALINFARCTION. THE UPPER REFERENCE LIMIT (URL) OF TROPONIN, DEFINED THE 99TH PERCENTILE OFcTnI DISTRIBUTION IN A REFERENCE POPULATION, HAS BEEN CONFIRMED THE DECISION THRESHOLDFOR MS DIAGNOSIS. Performed By: #### C NANCY HERNANDEZ ####[facility] Kjcrmcccnt[address] [place], [place] [address]Dr. Garima Pulliam DORIS 79 ng/mL Normal 16-96 [facility] Comment on above: Performed By: #### C NANCY HERNANDEZ ####[facility] Ymiesodgfv6312[address] [place], [place] [address]Dr. Chapisreun Pulliam CBC AUTO DIFFon 03-30-2023 BASO # 0.0 103/ul Normal 0.0-0.1 [facility] Comment on above: Performed By: #### C BC ####[facility] Dobesenmhj[address] [place] [address]Dr. Garima Pulliam Basophils/100 WBC (Bld) 0.1 % Critically low 0.2-2.0 [facility] Comment on above: Performed By: #### C BC ####[facility] Ksacmqlhut701[address] [place], [place] [address]Dr. Garima Pulliam EO # 0.3 103/ul Normal 0.0-0.7 [facility] Comment on above: Performed By: #### C BC ####[facility] Aeemdgrtlg4098[address] [place], [place] [address]Dr. Garima Pulliam Eosinophils/100 WBC (Bld) 3.3 % Normal 0.9-7.0 [facility] Comment on above: Performed By: #### C BC ####[facility] Shgbzsweab3720[address] [place], [place] [address]Dr. Garima Pulliam Erythrocyte distribution width (RBC) [Ratio] 13.5 % Normal 11.0-15.0 [facility] Comment on above: Performed By: #### C BC ####[facility] Zcjsbmfacm87[address] [place], [place] [address]Dr. Garima Pulliam Hematocrit (Bld) [Volume fraction] 42.9 % Normal 42.0-54.0 [facility] Comment on above: Performed By: #### C BC ####[facility] Dzwyeaduxn[address] [place], [place] [address]Dr. Garima Pulliam Hemoglobin (Bld) [Mass/Vol] 13.9 g/dL Critically low 14.0-18.0 [facility] Comment on above: Performed By: #### C BC ####[facility] Dzhqalikym[address] [place], [place] [address]Dr. Garima Pulliam IG # 0.01 10e3/ul Normal 0.00-0.03 [facility] Comment on above: Performed By: #### C BC ####[facility] Iehpyleicq67[address] [place], [place] [address]Dr. Garima Pulliam IG % 0.1 % Normal 0.0-0.5 [facility] Comment on above: Performed By: #### C BC ####[facility] Urkzzrqasp6536 [place] [id number]. Garima Heraclio LYMPH # 1.7 103/ul Normal 1.2-3.8 [facility] Comment on above: Performed By: #### C BC ####[facility] Eouyyctacw8729 [place] [id number]. Garima Heraclio Lymphocytes/100 WBC (Bld) 22.8 % Normal 20.5-60.0 [facility] Comment on above: Performed By: #### C BC ####[facility] Xvrxbzanhz54[address] [place] [address]Dr. Chapisrenu Pulliam MANUAL DIFF REQ NO Normal [facility] Comment on above: Performed By: #### C BC ####[facility] Ipynheuwyz[address] [place] [address]Dr. Garima Heraclio MCH (RBC) [Entitic mass] 30.5 pg Normal 25.9-34.0 [facility] Comment on above: Performed By: #### C BC ####[facility] Rzhbhnerox[address] [place] [address]Dr. Garima Heraclio MCHC (RBC) [Mass/Vol] 32.4 g/dL Normal 29.9-35.2 [facility] Comment on above: Performed By: #### C BC ####[facility] Dvrbxjanoi9[address] [place] [id number]. Chapisrenu Pulliam MCV (RBC) [Entitic vol] 94.1 fL Critically high 80.0-94.0 [facility] Comment on above: Performed By: #### C BC ####[facility] Vqaskgpbtj9396 [place] [id number]. Chapisrenu Pulliam MONO # 0.7 103/ul Normal 0.3-0.8 [facility] Comment on above: Performed By: #### C BC ####[facility] Zselbiavla[address] [place] [address]Dr. Chapisrenu Pulliam Monocytes/100 WBC (Bld) 8.6 % Normal 1.7-12.0 [facility] Comment on above: Performed By: #### C BC ####[facility] Hdraytstxi039[address] [place] [id number]. Garima Pulliam NEUT # 4.9 103/ul Normal 1.4-6.5 [facility] Comment on above: Performed By: #### C BC ####[facility] Njorxmdzyg6259 [place] [id number]. Garima Pulliam Neutrophils/100 WBC (Bld) 65.1 % Normal 43.0-75.0 [facility] Comment on above: Performed By: #### C BC ####[facility] Tfxrkxihgd5539 [place] [address]Dr. Garima Pulliam Platelet mean volume (Bld) [Entitic vol] 8.5 fL Critically low 9.5-13.5 [facility] Comment on above: Performed By: #### C BC ####[facility] Vmdtgcsqdx1450 [place] [id number]. Garima Pulliam PLT 219 103/ul Normal 150-450 [facility] Comment on above: Performed By: #### C BC ####[facility] Awvccttume1681 [place] [id number]. Garima Pulliam RBC 4.56 106/ul Critically low 4.70-6.10 [facility] Comment on above: Performed By: #### C BC ####[facility] Qwxodhvrmv1360 [place] [id number]. Garima Pulliam WBC 7.6 103/ul Normal 4.0-11.0 [facility] Comment on above: Performed By: #### C BC ####[facility] Nrimprdxpb1057 [place] [id number]. Garima Pulliam LACTATE/LACTIC ACIDon 2022 Lactate [Moles/Vol] 1.2 mmol/L Normal 0.4-2.0 [facility] Comment on above: Performed By: #### L ACT ####[facility] Xjrshpqqia64[address] [place] [address]Dr. Garima Pulliam MAGNESIUMon 03-30-2023 Magnesium [Mass/Vol] 1.8 mg/dL Normal 1.8-2.4 [facility] Comment on above: Performed By: #### M G ####[facility] Csugakascc8994 [place] [address]Dr. Garima Pulliam PROF 14(COMP METB)on 023 Albumin [Mass/Vol] 3.5 g/dL Normal 3.4-5.0 [facility] Comment on above: Performed By: #### C DAVID, CMADM ####[facility] Tygkbdmcex0624 [place] [address]Dr. Garima Pulliam Albumin/Globulin [Mass ratio] 1.2 {ratio} Normal [facility] Comment on above: Performed By: #### C DAVID, CMADM ####[facility] Jjvfkbpsix8949 [place] [address]Dr. Garima Pulliam ALP [Catalytic activity/Vol] 85 U/L Normal 46-116 [facility] Comment on above: Performed By: #### C DAVID, CMADM ####[facility] Yolqvcluhh2293 [place] [address]Dr. Garima Pulliam ALT [Catalytic activity/Vol] 29 U/L Normal 16-63 [facility] Comment on above: Performed By: #### C DAVID, CMADM ####[facility] Fpmioccbvn5245 [place] [address]Dr. Garima Pulliam Anion gap [Moles/Vol] 8.0 mmol/L Normal [facility] Comment on above: Performed By: #### C DAVID, CMADM ####[facility] Zehljfgfes028[address] [place] [address]Dr. Garima Pulliam AST [Catalytic activity/Vol] 18 U/L Normal 15-37 [facility] Comment on above: Performed By: #### C DAVID, CMADM ####[facility] Jeynqxbyls31[address] [place] [address]Dr. Garima Pulliam Bilirubin [Mass/Vol] 0.4 mg/dL Normal 0.2-1.0 [facility] Comment on above: Performed By: #### C DAVID, CMADM ####[facility] Cywjyrxxvu6813 [place] [address]Dr. Garima Pulliam Calcium [Mass/Vol] 8.8 mg/dL Normal 8.5-10.1 [facility] Comment on above: Performed By: #### C DAVID, NANCY ####[facility] Jtbwwznbls6990 [place] [address]Dr. Chapisrenu Heraclio Chloride [Moles/Vol] 108 mmol/L Critically high 98-107 [facility] Comment on above: Performed By: #### C DAVID, CMADM ####[facility] Lpwzhzzcvn1218 [place] [address]Dr. Chapisrenu Heraclio CO2 [Moles/Vol] 29.6 mmol/L Normal 21.0-32.0 [facility] Comment on above: Performed By: #### C DAVID, NANCY ####[facility] Wetlkayanm20[address] [place], [place] [address]Dr. Garima Pulliam Creatinine [Mass/Vol] 0.77 mg/dL Normal 0.70-1.30 [facility] Comment on above: Performed By: #### C DAVID, CMAANA ROSA ####[facility] Ywzjnicljo87[address] [place], [place] [address]Dr. Garima Heraclio EGFR-AF LEBANESE >60 Normal >=60 [facility] Comment on above: Performed By: #### C DAVID, NANCY ####[facility] Qwdldtjnrg5240[address] [place], [place] [address]Dr. Garima Heraclio EGFR-NON AF LEBANESE >60 Normal >=60 [facility] Comment on above: Performed By: #### C DAVID, CMADM ####[facility] Cqcvvcepdr4412[address] [place], [place] [address]Dr. Garima Pulliam Globulin (S) [Mass/Vol] 2.8 g/dL Normal [facility] Comment on above: Performed By: #### C DAVID, CMADM ####[facility] Vatdgeyhkh5122[address] [place], [place] [address]Dr. Garima Pulliam Glucose [Mass/Vol] 207 mg/dL Critically high 74-106 [facility] Comment on above: Performed By: #### C DAVID, CMADM ####[facility] Uvtophijiz4650[address] [place], [place] [address]Dr. Garima Pulliam Potassium [Moles/Vol] 4.6 mmol/L Normal 3.5-5.1 [facility] Comment on above: Performed By: #### C DAVID, NANCY ####[facility] Bfgwjuuyrc1552 [place] [address]Dr. Garima Pulliam Protein [Mass/Vol] 6.3 g/dL Critically low 6.4-8.2 Th e [facility] Comment on above: Performed By: #### C DAVID, NANCY ####[facility] Vozlyfwcdh8075 [place] [address]Dr. Garima Pulliam Sodium [Moles/Vol] 141 mmol/L Normal 136-145 [facility] Comment on above: Performed By: #### C DAVID, NANCY ####[facility] Hdkepdsveg279[address] [place], [place] [address]Dr. Garima Pulliam Urea nitrogen [Mass/Vol] 9.0 mg/dL Normal 7.0-18.0 [facility] Comment on above: Performed By: #### C NANCY HERNANDEZ ####[facility] Teaknhtddb[address] [place], [place] [address]Dr. Garima Pulliam Urea nitrogen/Creatinine [Mass ratio] 11.7 mg/mg Normal [facility] Comment on above: Performed By: #### C NANCY HERNANDEZ ####[facility] Wiquhzmkei3316[address] [place], [place] [address]Dr. Garima Pulliam XR CHEST 1 Von 03-30-2023 XR CHEST 1 V Normal [facility] BNPon 03-27-2023 Natriuretic peptide B (Bld) [Mass/Vol] 251.0 pg/mL Normal <=900.0 [facility] Comment on above: Performed By: #### C MP, BNP, LIPID ####[facility] Xwdrsibjbe2125[address] [place], [place] [address]Dr. Garima Pulliam GLYCOHEMOGLOBIN A1Con 2022 ADA RECOMMENDATION SEE BELOW Normal [facility] Comment on above: Result Comment: ADA RECOMMENDED LIMIT 4.0 - 6.0 ADA THERAPEUTIC TARGET < 7.0 ACTION SUGGESTED > 7.0 Performed By: #### A 1C ####[facility] Dzsufzwlsb3871 [place] [address]Dr. Garima Pulliam Glucose [Mass/Vol] 180 mg/dL Normal [facility] Comment on above: Performed By: #### A 1C ####[facility] Yaoscuofes3789[address] [place], [place] [address]Dr. Garima Pulliam HbA1c (Bld) [Mass fraction] 7.9 % Critically high 4.5-6.2 [facility] Comment on above: Performed By: #### A 1C ####[facility] Tsubqbkrwi9138[address] [place], [place] [address]Dr. Garima Pulliam HEMOGRAM AND PLATELon 2022 Hematocrit (Bld) [Volume fraction] 45.7 % Normal 42.0-54.0 [facility] Comment on above: Performed By: #### H H ####[facility] Gprwzddpve20[address] [place], [place] [address]Dr. Chapisrenu Pulliam Hemoglobin (Bld) [Mass/Vol] 15.1 g/dL Normal 14.0-18.0 [facility] Comment on above: Performed By: #### H H ####[facility] Ybstnqvmaw70[address] [place], [place] [address]Dr. Garima Pulliam MCH (RBC) [Entitic mass] 30.0 pg Normal 25.9-34.0 [facility] Comment on above: Performed By: #### H H ####[facility] Cbhnzabiyo57[address] [place], [place] [address]Dr. Garima Pulliam MCHC (RBC) [Mass/Vol] 33.0 g/dL Normal 29.9-35.2 [facility] Comment on above: Performed By: #### H H ####[facility] Edsvhdrssb[address] [place], [place] [address]Dr. Garima Pulliam MCV (RBC) [Entitic vol] 90.7 fL Normal 80.0-94.0 [facility] Comment on above: Performed By: #### H H ####[facility] Hqolklvhmu76[address] [place], [place] [address]Dr. Chapisrenu Pulliam PLT 222 103/ul Normal 150-450 [facility] [facility] Comment on above: Performed By: #### H H ####[facility] Dqgkafysfv[address] [place] [id number]. Garima Pulliam RBC 5.04 106/ul Normal 4.70-6.10 [facility] Comment on above: Performed By: #### H H ####[facility] Aehwkqnsfy6591 [place] [id number]. Garima Pulliam WBC 8.7 103/ul Normal 4.0-11.0 [facility] Comment on above: Performed By: #### H H ####[facility] Mjegzvjppo25[address] [place] [id number]. Garima Pulliam LIPID PROFILEon 03-27-2023 CHOL-HDL RATIO NORM SEE BELOW Normal [facility] Comment on above: Result Comment: 3.3 - 4.4 LOW RISK 4.4 - 7.1 AVERAGE RISK 7.1 - 11.0 MODERATE RISK >11.0 HIGH RISK Performed By: #### C MP, BNP, LIPID ####[facility] Vwqliiexty[address] [place] [address]Dr. Garima Pulliam Cholesterol [Mass/Vol] 113 mg/dL Normal <=200 [facility] Comment on above: Performed By: #### C MP, BNP, LIPID ####[facility] Eurixvcjbg99[address] [place] [address]Dr. Garima Pulliam Cholesterol in HDL [Mass/Vol] 51 mg/dL Normal 40-60 [facility] Comment on above: Performed By: #### C MP, BNP, LIPID ####[facility] Xkbeejdycn6202 [place] [address]Dr. Garima Pulliam Cholesterol in LDL [Mass/Vol] 49.8 mg/dL Normal [facility] Comment on above: Performed By: #### C MP, BNP, LIPID ####[facility] Yphddncbby[address] [place] [address]Dr. Garima Pulliam Cholesterol.total/Cho lesterol in HDL [Mass ratio] 2.2 {ratio} Normal [facility] Comment on above: Performed By: #### C MP, BNP, LIPID ####[facility] Ddxzudecps[address] [place] [address]Dr. Garima Pulliam HDL NORMAL > or = 60 mg/dl - LOW CARDIOVASCULAR RISK <40 mg/dl - HIGH CARDIOVASCULAR RISK Normal [facility] Comment on above: Performed By: #### C MP, BNP, LIPID ####[facility] Gpjxcraego46[address] [place] [address]Dr. Garima Pulliam LDL CALC NORMAL SEE BELOW Normal [facility] Comment on above: Result Comment: <100 mg/dl OPTIMAL 100 - 129 mg/dl NEAR OR ABOVE OPTIMAL 130 - 159 mg/dl BORDERLINE HIGH 160 - 189 mg/dl HIGH >190 mg/dl VERY HIGH Performed By: #### C MP, BNP, LIPID ####[facility] Lhqpwdxfzp[address] [place] [address]Dr. Garima Pulliam Triglyceride [Mass/Vol] 61 mg/dL Normal <=150 [facility] Comment on above: Performed By: #### C MP, BNP, LIPID ####[facility] Njcoimomac60[address] [place] [address]Dr. Garima Pulliam VLDL CALC 12.2 mg/dL Normal [facility] Comment on above: Performed By: #### C MP, BNP, LIPID ####[facility] Qlgdqkxute6949 [place] [address]Dr. Garima Pulliam PROF 14(COMP METB)on 023 Albumin [Mass/Vol] 3.5 g/dL Normal 3.4-5.0 [facility] Comment on above: Performed By: #### C MP, BNP, LIPID ####[facility] Ayiifpjydl22[address] [place] [address]Dr. Garima Pulliam Albumin/Globulin [Mass ratio] 1.2 {ratio} Normal [facility] Comment on above: Performed By: #### C MP, BNP, LIPID ####[facility] Wnzyeofmpy7627 [place] [address]Dr. Garima Pulliam ALP [Catalytic activity/Vol] 82 U/L Normal 46-116 [facility] Comment on above: Performed By: #### C MP, BNP, LIPID ####[facility] Uhsmikxhiy22[address] [place] [address]Dr. Garima Pulliam ALT [Catalytic activity/Vol] 33 U/L Normal 16-63 [facility] Comment on above: Performed By: #### C MP, BNP, LIPID ####[facility] Rraspuarkm6[address] [place] [address]Dr. Garima Pulliam Anion gap [Moles/Vol] 9.9 mmol/L Normal [facility] Comment on above: Performed By: #### C MP, BNP, LIPID ####[facility] Iqfsiiqcnf9870 [place] [address]Dr. Garima Pulliam AST [Catalytic activity/Vol] 24 U/L Normal 15-37 [facility] Comment on above: Performed By: #### C MP, BNP, LIPID ####[facility] Lytjrjbtng38[address] [place] [address]Dr. Gairma Pulliam Bilirubin [Mass/Vol] 0.6 mg/dL Normal 0.2-1.0 [facility] Comment on above: Performed By: #### C MP, BNP, LIPID ####[facility] Rvxjtwzpxv1566 [place] [address]Dr. Garima Pulliam Calcium [Mass/Vol] 9.2 mg/dL Normal 8.5-10.1 [facility] Comment on above: Performed By: #### C MP, BNP, LIPID ####[facility] Pxsyxwovxn7429 [place] [address]Dr. Garima Pulliam Chloride [Moles/Vol] 106 mmol/L Normal 98-107 [facility] Comment on above: Performed By: #### C MP, BNP, LIPID ####[facility] Mdubwhakju3203 [place] [address]Dr. Garima Pulliam CO2 [Moles/Vol] 32.3 mmol/L Critically high 21.0-32.0 [facility] Comment on above: Performed By: #### C MP, BNP, LIPID ####[facility] Ycxrbcgrie7421 [place] [address]Dr. Garima Pulliam Creatinine [Mass/Vol] 0.70 mg/dL Normal 0.70-1.30 [facility] Comment on above: Performed By: #### C MP, BNP, LIPID ####[facility] Zwvdnyeyez5786 [place] [id number]. Garima uPlliam EGFR-AF LEBANESE >60 Normal >=60 [facility] Comment on above: Performed By: #### C MP, BNP, LIPID ####[facility] Chdtqupxbu7519 [place] [id number]. Garima Pulliam EGFR-NON AF LEBANESE >60 Normal >=60 [facility] Comment on above: Performed By: #### C MP, BNP, LIPID ####[facility] Zjlbkshtnf8774 [place] [address]Dr. Garima Pulliam Globulin (S) [Mass/Vol] 2.9 g/dL Normal [facility] Comment on above: Performed By: #### C MP, BNP, LIPID ####[facility] Kechkkceht0444 [place] [address]Dr. Garima Pulliam Glucose [Mass/Vol] 111 mg/dL Critically high 74-106 [facility] Comment on above: Performed By: #### C MP, BNP, LIPID ####[facility] Cqaerpedij4184 [place] [address]Dr. Garima Pulliam Potassium [Moles/Vol] 4.2 mmol/L Normal 3.5-5.1 [facility] Comment on above: Performed By: #### C MP, BNP, LIPID ####[facility] Jejobblcyh3454 [place] [address]Dr. Garima Pulliam Protein [Mass/Vol] 6.4 g/dL Normal 6.4-8.2 [facility] Comment on above: Performed By: #### C MP, BNP, LIPID ####[facility] Ocgaufesui1203 [place] [address]Dr. Garima Pulliam Sodium [Moles/Vol] 144 mmol/L Normal 136-145 [facility] Comment on above: Performed By: #### C MP, BNP, LIPID ####[facility] Erzlafevpx5481 [place] [address]Dr. Garima Pulliam Urea nitrogen [Mass/Vol] 7.0 mg/dL Normal 7.0-18.0 [facility] Comment on above: Performed By: #### C MP, BNP, LIPID ####[facility] [address]qjozdyyb[address] [place], [place] [address]Dr. Garima Pulliam Urea nitrogen/Creatinine [Mass ratio] 10.0 mg/mg Normal [facility] Comment on above: Performed By: #### C MP, BNP, LIPID ####[facility] Zcfzmdtnoe6[address] [place], [place] [address]Dr. Garima Pulliam BNPon 03-22-2023 Natriuretic peptide B (Bld) [Mass/Vol] 103.0 pg/mL Normal <=900.0 [facility] Comment on above: Performed By: #### B TABULATING MACHINE MECHANIC, BMP ####[facility] Gcjjhpbijw30[address] [place], [place] [address]Dr. Garima Pulliam CBC AUTO DIFFon 03-22-2023 BASO # 0.0 103/ul Normal 0.0-0.1 [facility] Comment on above: Performed By: #### C BC ####[facility] Sfmmbfecdy46[address] [place], [place] [address]Dr. Garima Heraclio Basophils/100 WBC (Bld) 0.3 % Normal 0.2-2.0 [facility] Comment on above: Performed By: #### C BC ####[facility] Wztdtritpa44[address] [place], [place] [address]Dr. Garima Pulliam EO # 0.2 103/ul Normal 0.0-0.7 [facility] Comment on above: Performed By: #### C BC ####[facility] Lplypmfrpy1979[address] [place], [place] [address]Dr. Garima Heraclio Eosinophils/100 WBC (Bld) 2.2 % Normal 0.9-7.0 [facility] Comment on above: Performed By: #### C BC ####[facility] Copvlzsdzl69[address] [place], [place] [address]Dr. Garima Pulliam Erythrocyte distribution width (RBC) [Ratio] 13.2 % Normal 11.0-15.0 [facility] Comment on above: Performed By: #### C BC ####[facility] Fdardyqlkb1379 [place] [address]Dr. Chapisrenu Pulliam Hematocrit (Bld) [Volume fraction] 43.4 % Normal 42.0-54.0 [facility] Comment on above: Performed By: #### C BC ####[facility] Knklpzuzvm8973 [place] [address]Dr. Garima Pulliam Hemoglobin (Bld) [Mass/Vol] 14.3 g/dL Normal 14.0-18.0 [facility] Comment on above: Performed By: #### C BC ####[facility] Jpgfuwfelp28[address] [place], [place] [address]Dr. Garima Pulliam IG # 0.02 10e3/ul Normal 0.00-0.03 [facility] Comment on above: Performed By: #### C BC ####[facility] Lvbtvnksox380[address] [place], [place] [address]Dr. Garima Pulliam IG % 0.3 % Normal 0.0-0.5 [facility] Comment on above: Performed By: #### C BC ####[facility] Jzypzrypuh[address] [place], [place] [address]Dr. Garima Pulliam LYMPH # 2.0 103/ul Normal 1.2-3.8 [facility] Comment on above: Performed By: #### C BC ####[facility] Hchzvskpmc24[address] [place], [place] [address]Dr. Garima Pulliam Lymphocytes/100 WBC (Bld) 24.8 % Normal 20.5-60.0 [facility] Comment on above: Performed By: #### C BC ####[facility] Gnnrxqqoap7355 [place] [address]Dr. Garima Pulliam MANUAL DIFF REQ NO Normal [facility] Comment on above: Performed By: #### C BC ####[facility] Cgtswdmskk6[address] [place], [place] [address]Dr. Garima Pulliam MCH (RBC) [Entitic mass] 30.0 pg Normal 25.9-34.0 [facility] Comment on above: Performed By: #### C BC ####[facility] Nkeqembrhi7[address] [place], [place] [address]Dr. Garima Pulliam MCHC (RBC) [Mass/Vol] 32.9 g/dL Normal 29.9-35.2 [facility] Comment on above: Performed By: #### C BC ####[facility] Nfugvmbjga4464 [place] [address]Dr. Garima Heraclio MCV (RBC) [Entitic vol] 91.0 fL Normal 80.0-94.0 [facility] Comment on above: Performed By: #### C BC ####[facility] Boikpbxtcc6442 [place] [address]Dr. Garima Pulliam MONO # 0.8 103/ul Normal 0.3-0.8 [facility] Comment on above: Performed By: #### C BC ####[facility] Jcirsjzhyg6[address] [place], [place] [address]Dr. Garima Pulliam Monocytes/100 WBC (Bld) 9.7 % Normal 1.7-12.0 [facility] Comment on above: Performed By: #### C BC ####[facility] Jkkdotcsuc8[address] [place], [place] [address]Dr. Garima Pulliam NEUT # 4.9 103/ul Normal 1.4-6.5 [facility] Comment on above: Performed By: #### C BC ####[facility] Nwzljeyznl4[address] [place], [place] [address]Dr. Garima Pulliam Neutrophils/100 WBC (Bld) 62.7 % Normal 43.0-75.0 [facility] Comment on above: Performed By: #### C BC ####[facility] Jrqoprrriw7193[address] [place], [place] [address]Dr. Garima Pulliam Platelet mean volume (Bld) [Entitic vol] 8.8 fL Critically low 9.5-13.5 [facility] Comment on above: Performed By: #### C BC ####[facility] Ytxjfiwhne64[address] [place], [place] [address]Dr. Garima Pulliam PLT 198 103/ul Normal 150-450 [facility] Comment on above: Performed By: #### C BC ####[facility] Haprnrzycq4169 [place] [address]Dr. Garima Pulliam RBC 4.77 106/ul Normal 4.70-6.10 [facility] Comment on above: Performed By: #### C BC ####[facility] Ximocarasn5985 [place] [address]Dr. Garima Heraclio WBC 7.9 103/ul Normal 4.0-11.0 [facility] Comment on above: Performed By: #### C BC ####[facility] Iwvnudrmxt3830 [place] [address]Dr. Chapisrenu Pulliam D-DIMERon 03-22-2023 D-DIMER 0.85 mg/L FEU Critically high <=0.59 [facility] Comment on above: Performed By: #### D DIM ####[facility] Zvuelkauxf7329 [place] [address]Dr. Garima Pulliam D-DIMER COMMENTS SEE BELOW Normal [facility] Comment on above: Result Comment: Incr [...] hospitalization. Performed By: #### D DIM ####[facility] Fluyollrfg5488 [place] [address]Dr. Garima Pulliam PROF CHEM 8 (BAS METB)on Anion gap [Moles/Vol] 6.9 mmol/L Normal [facility] Comment on above: Performed By: #### B TABULATING MACHINE MECHANIC, BMP ####[facility] Awyfctqiun7064 [place] [address]Dr. Garima Pulliam Calcium [Mass/Vol] 8.9 mg/dL Normal 8.5-10.1 [facility] Comment on above: Performed By: #### B TABULATING MACHINE MECHANIC, BMP ####[facility] Gmsaoyqmlt9490 [place] [address]Dr. Garima Pulliam Chloride [Moles/Vol] 101 mmol/L Normal 98-107 [facility] Comment on above: Performed By: #### B TABULATING MACHINE MECHANIC, BMP ####[facility] Wawfcoroxv[address] [place], [place] [address]Dr. Garima Pulliam CO2 [Moles/Vol] 30.7 mmol/L Normal 21.0-32.0 [facility] Comment on above: Performed By: #### B TABULATING MACHINE MECHANIC, BMP ####[facility] Xovtnkqlvg35[address] [place], [place] [address]Dr. Chapisrenu Heraclio Creatinine [Mass/Vol] 0.82 mg/dL Normal 0.70-1.30 [facility] Comment on above: Performed By: #### B TABULATING MACHINE MECHANIC, BMP ####[facility] Brkhxjnxcz537[address] [place], [place] [address]Dr. Garima Pulliam EGFR-AF LEBANESE >60 Normal >=60 [facility] Comment on above: Performed By: #### B TABULATING MACHINE MECHANIC, BMP ####[facility] Tmjiakqzqu20[address] [place], [place] [address]Dr. Chapisrenu Heraclio EGFR-NON AF LEBANESE >60 Normal >=60 [facility] Comment on above: Performed By: #### B TABULATING MACHINE MECHANIC, BMP ####[facility] Rweftunjjn8069[address] [place], [place] [address]Dr. Garima Pulliam Glucose [Mass/Vol] 339 mg/dL Critically high 74-106 [facility] Comment on above: Performed By: #### B TABULATING MACHINE MECHANIC, BMP ####[facility] Iznkuulhgi7003[address] [place], [place] [address]Dr. Garima Pulliam Potassium [Moles/Vol] 3.6 mmol/L Normal 3.5-5.1 [facility] Comment on above: Performed By: #### B TABULATING MACHINE MECHANIC, BMP ####[facility] Tkordjcjjv6052[address] [place], [place] [address]Dr. Garima Pulliam Sodium [Moles/Vol] 135 mmol/L Critically low 136-145 [facility] Comment on above: Performed By: #### B TABULATING MACHINE MECHANIC, BMP ####[facility] Dpbimbthpd3564[address] [place], [place] [address]Dr. Garima Pulliam Urea nitrogen [Mass/Vol] 11.0 mg/dL Normal 7.0-18.0 [facility] Comment on above: Performed By: #### B TABULATING MACHINE MECHANIC, BMP ####[facility] Yjokkrncwm3454[address] [place], [place] [address]Dr. Garima Pulliam Urea nitrogen/Creatinine [Mass ratio] 13.4 mg/mg Normal [facility] Comment on above: Performed By: #### B TABULATING MACHINE MECHANIC, BMP ####[facility] Mjfwxyfwnx99[address] [place], [place] [address]DrAdalberto Garima Heraclio US VERONICA DOP LEG BILon 023 US VERONICA DOP LEG BENOIT Normal [facility] BNPon 03-18-2023 Natriuretic peptide B (Bld) [Mass/Vol] 226.0 pg/mL Normal <=900.0 [facility] Comment on above: Performed By: #### B TABULATING MACHINE MECHANIC, BMP ####[facility] Xzbyvsjdfv5[address] [place], [place] [address]Dr. Garima Heraclio CBC AUTO DIFFon 03-18-2023 BASO # 0.0 103/ul Normal 0.0-0.1 [facility] Comment on above: Performed By: #### C BC ####[facility] Yjnigpbtlf26[address] [place], [place] [address]Dr. Garima Heraclio Basophils/100 WBC (Bld) 0.2 % Normal 0.2-2.0 [facility] Comment on above: Performed By: #### C BC ####[facility] Mklwqiyzaq3427[address] [place], [place] [address]DrAdalberto Garima Heraclio EO # 0.3 103/ul Normal 0.0-0.7 [facility] Comment on above: Performed By: #### C BC ####[facility] Ascxlkiplu3692[address] [place], [place] [address]Dr. Chapisrenu Pulliam Eosinophils/100 WBC (Bld) 2.5 % Normal 0.9-7.0 [facility] Comment on above: Performed By: #### C BC ####[facility] Nxthjjegqh2688[address] [place], [place] [address]DrAdalberto Garima Heraclio Erythrocyte distribution width (RBC) [Ratio] 13.2 % Normal 11.0-15.0 [facility] Comment on above: Performed By: #### C BC ####[facility] Ykljajffzl9258 [place] [address]Dr. Garima Pulliam Hematocrit (Bld) [Volume fraction] 45.8 % Normal 42.0-54.0 [facility] Comment on above: Performed By: #### C BC ####[facility] Fpwtapukzu1935 [place] [address]Dr. Garima Heraclio Hemoglobin (Bld) [Mass/Vol] 15.3 g/dL Normal 14.0-18.0 [facility] Comment on above: Performed By: #### C BC ####[facility] Gkeltjbyzp[address] [place], [place] [address]Dr. Garima Pulliam IG # 0.02 10e3/ul Normal 0.00-0.03 [facility] Comment on above: Performed By: #### C BC ####[facility] Oiiuzzncgt0[address] [place], [place] [address]Dr. Garima Pulliam IG % 0.2 % Normal 0.0-0.5 [facility] Comment on above: Performed By: #### C BC ####[facility] Ukfkczqxto63[address] [place], [place] [address]Dr. Chapisrenu Pulliam LYMPH # 1.8 103/ul Normal 1.2-3.8 [facility] Comment on above: Performed By: #### C BC ####[facility] Akrnvuhrpw9[address] [place], [place] [address]Dr. Garima Pulliam Lymphocytes/100 WBC (Bld) 18.3 % Critically low 20.5-60.0 [facility] Comment on above: Performed By: #### C BC ####[facility] Fwgrzrkfwk18[address] [place], [place] [address]Dr. Garima Pulliam MANUAL DIFF REQ NO Normal [facility] Comment on above: Performed By: #### C BC ####[facility] Qghacdpidn1298 [place] [address]Dr. Garima Pulliam MCH (RBC) [Entitic mass] 30.5 pg Normal 25.9-34.0 [facility] Comment on above: Performed By: #### C BC ####[facility] Kkdhhemrkn4321 [place] [id number]. Garima Pulliam MCHC (RBC) [Mass/Vol] 33.4 g/dL Normal 29.9-35.2 [facility] Comment on above: Performed By: #### C BC ####[facility] Noeasfeaaf4986 [place] [id number]. Garima Pulliam MCV (RBC) [Entitic vol] 91.2 fL Normal 80.0-94.0 [facility] Comment on above: Performed By: #### C BC ####[facility] Upkhyembff7828 [place] [address]Dr. Garima Pulliam MONO # 0.8 103/ul Normal 0.3-0.8 [facility] Comment on above: Performed By: #### C BC ####[facility] Hgfnpqgcsq2133 [place] [address]Dr. Garima Pulliam Monocytes/100 WBC (Bld) 7.6 % Normal 1.7-12.0 [facility] Comment on above: Performed By: #### C BC ####[facility] Zkpkenjwgm[address] [place], [place] [address]Dr. Garima Pulliam NEUT # 7.0 103/ul Critically high 1.4-6.5 [facility] Comment on above: Performed By: #### C BC ####[facility] Weqmslcqrs69[address] [place], [place] [address]Dr. Garima Pulliam Neutrophils/100 WBC (Bld) 71.2 % Normal 43.0-75.0 [facility] Comment on above: Performed By: #### C BC ####[facility] Hf[address]meiagau[address] [place], [place] [address]Dr. Garima Pulliam Platelet mean volume (Bld) [Entitic vol] 8.9 fL Critically low 9.5-13.5 [facility] Comment on above: Performed By: #### C BC ####[facility] G[address]ymjrko[address] [place], [place] [address]Dr. Garima Pulliam PLT 217 103/ul Normal 150-450 [facility] Comment on above: Performed By: #### C BC ####[facility] Mkuqtlimlf0092 [place] [address]Dr. Garima Pulliam RBC 5.02 106/ul Normal 4.70-6.10 [facility] Comment on above: Performed By: #### C BC ####[facility] Wqibzpdlgh9610 [place] [address]Dr. Garima Pulliam WBC 9.8 103/ul Normal 4.0-11.0 [facility] Comment on above: Performed By: #### C BC ####[facility] Bcixeyussq[address] [place], [place] [address]DrAdalberto Pulliam CRPon 03-18-2023 CRP 0.1 mg/dL Normal <=1.0 [facility] Comment on above: Performed By: #### C RP ####[facility] Yupcxfzbzc2[address] [place], [place] [address]DrAdalberto Pulliam PROF CHEM 8 (BAS METB)on Anion gap [Moles/Vol] 10.4 mmol/L Normal [facility] Comment on above: Performed By: #### B TABULATING MACHINE MECHANIC, BMP ####[facility] Jutgabltnx99[address] [place], [place] [address]Dr. Garima Pulliam Calcium [Mass/Vol] 8.8 mg/dL Normal 8.5-10.1 [facility] Comment on above: Performed By: #### B TABULATING MACHINE MECHANIC, BMP ####[facility] Izqtwvknky9763 [place] [address]Dr. Garima Pulliam Chloride [Moles/Vol] 97 mmol/L Critically low 98-107 [facility] Comment on above: Performed By: #### B TABULATING MACHINE MECHANIC, BMP ####[facility] Evtwqojrra[address] [place], [place] [address]DrAdalberto Pulliam CO2 [Moles/Vol] 31.2 mmol/L Normal 21.0-32.0 [facility] Comment on above: Performed By: #### B TABULATING MACHINE MECHANIC, BMP ####[facility] Zavnmwyavo6[address] [place], [place] [address]Dr. Garima Pulliam Creatinine [Mass/Vol] 0.91 mg/dL Normal 0.70-1.30 [facility] Comment on above: Performed By: #### B TABULATING MACHINE MECHANIC, BMP ####[facility] Drfwabfwtt6199 [place] [address]Dr. Garima Heraclio EGFR-AF LEBANESE >60 Normal >=60 [facility] Comment on above: Performed By: #### B TABULATING MACHINE MECHANIC, BMP ####[facility] Mmcbigwbel8195 [place] [id number]. Garima Heraclio EGFR-NON AF LEBANESE >60 Normal >=60 [facility] Comment on above: Performed By: #### B TABULATING MACHINE MECHANIC, BMP ####[facility] Yqumusnval[address] [place], [place] [address]Dr. Garima Pulliam Glucose [Mass/Vol] 315 mg/dL Critically high 74-106 T [facility] Comment on above: Performed By: #### B TABULATING MACHINE MECHANIC, BMP ####[facility] Qbmvacxlor[address] [place], [place] [address]Dr. Garima Pulliam Potassium [Moles/Vol] 3.6 mmol/L Normal 3.5-5.1 [facility] Comment on above: Performed By: #### B TABULATING MACHINE MECHANIC, BMP ####[facility] Mbpuvelbok[address] [place], [place] [address]Dr. Garima Pulliam Sodium [Moles/Vol] 135 mmol/L Critically low 136-145 [facility] Comment on above: Performed By: #### B TABULATING MACHINE MECHANIC, BMP ####[facility] [address]zbbsnzp[address] [place], [place] [address]Dr. Chapisrenu Heraclio Urea nitrogen [Mass/Vol] 7.0 mg/dL Normal 7.0-18.0 [facility] Comment on above: Performed By: #### B TABULATING MACHINE MECHANIC, BMP ####[facility] Wnvhsnsqtj[address] [place], [place] [address]Dr. Garima Pulliam Urea nitrogen/Creatinine [Mass ratio] 7.7 mg/mg Normal [facility] Comment on above: Performed By: #### B TABULATING MACHINE MECHANIC, BMP ####[facility] [address]wcscefrpb[address] [place], [place] [address]Dr. Garima Pulliam SED RATE WESTERGRENon 2022 SED RATE 8 mm/hr Normal <=20 [facility] Comment on above: Performed By: #### S EDR ####[facility] Klrsihsmlu[address] [place], [place] [address]Dr. Garima Pulliam BNPon 03-16-2023 Natriuretic peptide B (Bld) [Mass/Vol] 241.0 pg/mL Normal <=900.0 [facility] Comment on above: Performed By: #### B TABULATING MACHINE MECHANIC, BMP, HSTROPN ####[facility] [address]xdrwdrpuu[address] [place], [place] [address]Dr. Garima Pulliam CBC AUTO DIFFon 03-16-2023 BASO # 0.0 103/ul Normal 0.0-0.1 [facility] Comment on above: Performed By: #### C BC ####[facility] Qmebdojzaa[address] [place], [place] [address]Dr. Chapisrenu Pulliam Basophils/100 WBC (Bld) 0.2 % Normal 0.2-2.0 [facility] Comment on above: Performed By: #### C BC ####[facility] Qecinlzdkw[address] [place], [place] [address]Dr. Garima Pulliam EO # 0.2 103/ul Normal 0.0-0.7 [facility] Comment on above: Performed By: #### C BC ####[facility] Tpinselfov[address] [place], [place] [address]Dr. Garima Pulliam Eosinophils/100 WBC (Bld) 2.7 % Normal 0.9-7.0 [facility] Comment on above: Performed By: #### C BC ####[facility] Snthfhzzgq[address] [place], [place] [address]Dr. Garima Pulliam Erythrocyte distribution width (RBC) [Ratio] 13.1 % Normal 11.0-15.0 [facility] Comment on above: Performed By: #### C BC ####[facility] Xow[address]wozqus[address] [place], [place] [address]Dr. Garima Pulliam Hematocrit (Bld) [Volume fraction] 41.8 % Critically low 42.0-54.0 [facility] Comment on above: Performed By: #### C BC ####[facility] Uurketdniw[address] [place] [address]Dr. Garima Pulliam Hemoglobin (Bld) [Mass/Vol] 14.0 g/dL Normal 14.0-18.0 [facility] Comment on above: Performed By: #### C BC ####[facility] Imlsklgjdt[address] [place] [address]Dr. Garima Pulliam IG # 0.03 10e3/ul Normal 0.00-0.03 [facility] Comment on above: Performed By: #### C BC ####[facility] Ekkhhvpdgl23[address] [place] [address]Dr. Garima Pulliam IG % 0.3 % Normal 0.0-0.5 [facility] Comment on above: Performed By: #### C BC ####[facility] Xucsuzhcwq9[address] [place] [address]Dr. Chapisrenu Pulliam LYMPH # 2.1 103/ul Normal 1.2-3.8 [facility] Comment on above: Performed By: #### C BC ####[facility] Senvktwiim25[address] [place] [address]Dr. Chapisrenu Pulliam Lymphocytes/100 WBC (Bld) 24.2 % Normal 20.5-60.0 [facility] Comment on above: Performed By: #### C BC ####[facility] Cgftivlupy[address] [place] [address]Dr. Garima Pulliam MANUAL DIFF REQ NO Normal [facility] Comment on above: Performed By: #### C BC ####[facility] Yhhmfzlkam[address]40 [place] [id number]. Garima Pulliam MCH (RBC) [Entitic mass] 30.2 pg Normal 25.9-34.0 [facility] Comment on above: Performed By: #### C BC ####[facility] Ixnbvbcwfb1523 [place] [id number]. Chapisrenu Pulliam MCHC (RBC) [Mass/Vol] 33.5 g/dL Normal 29.9-35.2 [facility] Comment on above: Performed By: #### C BC ####[facility] Ztpkhbjtxz7908 [place] [id number]. Garima Pulliam MCV (RBC) [Entitic vol] 90.1 fL Normal 80.0-94.0 [facility] Comment on above: Performed By: #### C BC ####[facility] Qubnjcabnv1313 [place] [id number]. Garima Pulliam MONO # 0.6 103/ul Normal 0.3-0.8 [facility] Comment on above: Performed By: #### C BC ####[facility] Ytzpfiwlat4999 [place] [id number]. Garima Heraclio Monocytes/100 WBC (Bld) 7.4 % Normal 1.7-12.0 [facility] Comment on above: Performed By: #### C BC ####[facility] [address] [place], [place] [address]Dr. Garima Pulliam NEUT # 5.6 103/ul Normal 1.4-6.5 [facility] Comment on above: Performed By: #### C BC ####[facility] Zbunavkips[address] [place], [place] [address]Dr. Garima Heraclio Neutrophils/100 WBC (Bld) 65.2 % Normal 43.0-75.0 [facility] Comment on above: Performed By: #### C BC ####[facility] Ervxcxbehg[address] [place], [place] [address]Dr. Garima Heraclio Platelet mean volume (Bld) [Entitic vol] 8.7 fL Critically low 9.5-13.5 [facility] Comment on above: Performed By: #### C BC ####[facility] Xmchkalfdg7302 [place] [id number]. Garima Heraclio PLT 195 103/ul Normal 150-450 [facility] Comment on above: Performed By: #### C BC ####[facility] Njsuqeedsf6008 [place] [id number]. Garima Pulliam RBC 4.64 106/ul Critically low 4.70-6.10 [facility] Comment on above: Performed By: #### C BC ####[facility] Syxhsfscqz0173 [place] [address]Dr. Garima Pulliam WBC 8.6 103/ul Normal 4.0-11.0 [facility] Comment on above: Performed By: #### C BC ####[facility] Juhxdalchr9556 [place] [address]Dr. Garima Pulliam PROF CHEM 8 (BAS METB)on Anion gap [Moles/Vol] 6.7 mmol/L Normal [facility] Comment on above: Performed By: #### B TABULATING MACHINE MECHANIC, BMP, HSTROPN ####[facility] Hzjjskkqir7[address] [place], [place] [address]Dr. Garima Pulliam Calcium [Mass/Vol] 8.8 mg/dL Normal 8.5-10.1 [facility] Comment on above: Performed By: #### B TABULATING MACHINE MECHANIC, BMP, HSTROPN ####[facility] Gaoctpvbxn[address] [place], [place] [address]Dr. Garima Pulliam Chloride [Moles/Vol] 106 mmol/L Normal 98-107 [facility] Comment on above: Performed By: #### B TABULATING MACHINE MECHANIC, BMP, HSTROPN ####[facility] Nheczvciuc24[address] [place], [place] [address]Dr. Garima Pulliam CO2 [Moles/Vol] 31.4 mmol/L Normal 21.0-32.0 [facility] Comment on above: Performed By: #### B TABULATING MACHINE MECHANIC, BMP, HSTROPN ####[facility] Vdxmlclaps38[address] [place], [place] [address]Dr. Garima Pulliam Creatinine [Mass/Vol] 0.75 mg/dL Normal 0.70-1.30 [facility] Comment on above: Performed By: #### B TABULATING MACHINE MECHANIC, BMP, HSTROPN ####[facility] I[address]jvozdsr[address] [place], [place] [address]Dr. Garima Pulliam EGFR-AF LEBANESE >60 Normal >=60 [facility] Comment on above: Performed By: #### B TABULATING MACHINE MECHANIC, BMP, HSTROPN ####[facility] Yocrdmxdte4280 [place] [address]Dr. Garima Pulliam EGFR-NON AF LEBANESE >60 Normal >=60 [facility] Comment on above: Performed By: #### B TABULATING MACHINE MECHANIC, BMP, HSTROPN ####[facility] Ptduulmfzf3[address] [place] [address]Dr. Garima Pulliam Glucose [Mass/Vol] 161 mg/dL Critically high 74-106 T [facility] Comment on above: Performed By: #### B TABULATING MACHINE MECHANIC, BMP, HSTROPN ####[facility] Tfjqpmxlmc7254 [place] [address]Dr. Garima Pulliam Potassium [Moles/Vol] 4.1 mmol/L Normal 3.5-5.1 [facility] Comment on above: Performed By: #### B TABULATING MACHINE MECHANIC, BMP, HSTROPN ####[facility] Bdadlhmrgk6828 [place] [address]Dr. Garima Pulliam Sodium [Moles/Vol] 140 mmol/L Normal 136-145 [facility] Comment on above: Performed By: #### B TABULATING MACHINE MECHANIC, BMP, HSTROPN ####[facility] Cwuhknumgq1343 [place] [address]Dr. Garima Pulliam Urea nitrogen [Mass/Vol] 7.0 mg/dL Normal 7.0-18.0 [facility] Comment on above: Performed By: #### B TABULATING MACHINE MECHANIC, BMP, HSTROPN ####[facility] Fguhxzxvxq7430 [place] [address]Dr. Garima Pulliam Urea nitrogen/Creatinine [Mass ratio] 9.3 mg/mg Normal [facility] Comment on above: Performed By: #### B TABULATING MACHINE MECHANIC, BMP, HSTROPN ####[facility] Cqwqjgfzem[address] [place], [place] [address]Dr. Garima Pulliam TROPONIN, HIGH SENSITIVITYon 03-16-2023 HSTROP 9.7 pg/mL Normal 4.0-76.1 [facility] Comment on above: Result Comment: CUT- OFF POINTS HAVE BEEN ESTABLISHED BASED ON THE FOURTH UNIVERSAL DEFINITIONS OF MYOCARDIALINFARCTION. THE UPPER REFERENCE LIMIT (URL) OF TROPONIN, DEFINED THE 99TH PERCENTILE OFcTnI DISTRIBUTION IN A REFERENCE POPULATION, HAS BEEN CONFIRMED THE DECISION THRESHOLDFOR MS DIAGNOSIS. Performed By: #### B TABULATING MACHINE MECHANIC, BMP, HSTROPN ####[facility] Qmydjbkczx2228 [place] [address]Dr. Garima Pulliam XR CHEST 1 Von 03-16-2023 XR CHEST 1 V Normal [facility] BNPon 03-06-2023 Natriuretic peptide B (Bld) [Mass/Vol] 111.0 pg/mL Normal <=900.0 [facility] Comment on above: Performed By: #### C MP, BNP, CK ####[facility] Butazlwwwh[address] [place] [address]Dr. Chapisrenu Pulliam CBC AUTO DIFFon 03-06-2023 BASO # 0.0 103/ul Normal 0.0-0.1 [facility] Comment on above: Performed By: #### C BC ####[facility] L[address]vautzzto69[address] [place], [place] [address]Dr. Garima Pulliam Basophils/100 WBC (Bld) 0.2 % Normal 0.2-2.0 [facility] Comment on above: Performed By: #### C BC ####[facility] Ubdwzognft[address] [place], [place] [address]Dr. Garima Heraclio EO # 0.3 103/ul Normal 0.0-0.7 [facility] Comment on above: Performed By: #### C BC ####[facility] Muklzwmngn[address] [place], [place] [address]Dr. Garima Pulliam Eosinophils/100 WBC (Bld) 3.5 % Normal 0.9-7.0 [facility] Comment on above: Performed By: #### C BC ####[facility] Vllqmqraxq[address] [place], [place] [address]Dr. Chapisrenu Pulliam Erythrocyte distribution width (RBC) [Ratio] 13.3 % Normal 11.0-15.0 [facility] Comment on above: Performed By: #### C BC ####[facility] Sxgsrmsujz77[address] [place], [place] [address]Dr. Garima Pulliam Hematocrit (Bld) [Volume fraction] 43.7 % Normal 42.0-54.0 [facility] Comment on above: Performed By: #### C BC ####[facility] Zubgfnsetk3396 [place] [address]Dr. Garima Pulliam Hemoglobin (Bld) [Mass/Vol] 14.7 g/dL Normal 14.0-18.0 [facility] Comment on above: Performed By: #### C BC ####[facility] Iirtrincsz9512 [place] [address]Dr. Garima Pulliam IG # 0.03 10e3/ul Normal 0.00-0.03 [facility] Comment on above: Performed By: #### C BC ####[facility] Vltmhvfafi8351 [place] [address]Dr. Garima Pulliam IG % 0.4 % Normal 0.0-0.5 [facility] Comment on above: Performed By: #### C BC ####[facility] Nstgampvyw[address] [place], [place] [address]Dr. Garima Heraclio LYMPH # 2.0 103/ul Normal 1.2-3.8 [facility] Comment on above: Performed By: #### C BC ####[facility] Gfpcfvadkc04[address] [place], [place] [address]Dr. Chapisrenu Pulliam Lymphocytes/100 WBC (Bld) 23.7 % Normal 20.5-60.0 [facility] Comment on above: Performed By: #### C BC ####[facility] Qpnjfwfnzv2897 [place] [address]Dr. Chapisrenu Pulliam MANUAL DIFF REQ NO Normal [facility] Comment on above: Performed By: #### C BC ####[facility] Wspukvnena6517 [place] [address]Dr. Garima Pulliam MCH (RBC) [Entitic mass] 30.1 pg Normal 25.9-34.0 [facility] Comment on above: Performed By: #### C BC ####[facility] Usbwgutowu1763 [place] [address]Dr. Garima Pulliam MCHC (RBC) [Mass/Vol] 33.6 g/dL Normal 29.9-35.2 [facility] Comment on above: Performed By: #### C BC ####[facility] Obdsozkbjy0987 [place] [id number]. Garima Pulliam MCV (RBC) [Entitic vol] 89.4 fL Normal 80.0-94.0 [facility] Comment on above: Performed By: #### C BC ####[facility] Agnpeqqvkl3809 [place] [address]Dr. Garima Pulliam MONO # 0.8 103/ul Normal 0.3-0.8 [facility] Comment on above: Performed By: #### C BC ####[facility] Asdmcbxmln6668 [place] [address]Dr. Chapisrenu Pulliam Monocytes/100 WBC (Bld) 9.0 % Normal 1.7-12.0 [facility] Comment on above: Performed By: #### C BC ####[facility] Uamhtzwbej[address] [place], [place] [address]Dr. Garima Pulliam NEUT # 5.4 103/ul Normal 1.4-6.5 [facility] Comment on above: Performed By: #### C BC ####[facility] Pitetrsrbb[address] [place], [place] [address]Dr. Chapisrenu Pulliam Neutrophils/100 WBC (Bld) 63.2 % Normal 43.0-75.0 [facility] Comment on above: Performed By: #### C BC ####[facility] Exdvurkrzx88[address] [place], [place] [address]Dr. Garima Pulliam Platelet mean volume (Bld) [Entitic vol] 9.0 fL Critically low 9.5-13.5 [facility] Comment on above: Performed By: #### C BC ####[facility] Dr[address]riguwkx[address] [place], [place] [address]Dr. Garima Pulliam PLT 218 103/ul Normal 150-450 [facility] Comment on above: Performed By: #### C BC ####[facility] [address]qggxztid[address] [place], [place] [address]Dr. Garima Pulliam RBC 4.89 106/ul Normal 4.70-6.10 [facility] Comment on above: Performed By: #### C BC ####[facility] Dzdbgidkag5954 [place] [address]Dr. Garima Pulliam WBC 8.5 103/ul Normal 4.0-11.0 [facility] Comment on above: Performed By: #### C BC ####[facility] Nbscuberjx7063 [place] [address]Dr. Garima Pulliam CPKon 03-06-2023 CK [Catalytic activity/Vol] 191 U/L Normal 39-308 [facility] Comment on above: Performed By: #### C MP, BNP, CK ####[facility] Yoasuhlbmq2806 [place] [address]Dr. Garima Pulliam PROF 14(COMP METB)on 023 Albumin [Mass/Vol] 3.6 g/dL Normal 3.4-5.0 [facility] Comment on above: Performed By: #### C MP, BNP, CK ####[facility] Dmhokzxkbv2829 [place] [address]Dr. Garima Pulliam Albumin/Globulin [Mass ratio] 1.2 {ratio} Normal [facility] Comment on above: Performed By: #### C MP, BNP, CK ####[facility] Favqmwftzc0654 [place] [address]Dr. Garima Pulliam ALP [Catalytic activity/Vol] 91 U/L Normal 46-116 [facility] Comment on above: Performed By: #### C MP, BNP, CK ####[facility] Uxvtelyyno4343 [place] [address]Dr. Garima Pulliam ALT [Catalytic activity/Vol] 33 U/L Normal 16-63 [facility] Comment on above: Performed By: #### C MP, BNP, CK ####[facility] Mokeklyqww5268 [place] [address]Dr. Garima Pulliam Anion gap [Moles/Vol] 10.3 mmol/L Normal [facility] Comment on above: Performed By: #### C MP, BNP, CK ####[facility] Eznxswjvqo2756 [place] [address]Dr. Garima Pulliam AST [Catalytic activity/Vol] 17 U/L Normal 15-37 [facility] Comment on above: Performed By: #### C MP, BNP, CK ####[facility] Tltqdtgiql3846 [place] [address]Dr. Garima Pulliam Bilirubin [Mass/Vol] 0.4 mg/dL Normal 0.2-1.0 [facility] Comment on above: Performed By: #### C MP, BNP, CK ####[facility] Fbfnffxhxz2035 [place] [address]Dr. Garima Pulliam Calcium [Mass/Vol] 9.1 mg/dL Normal 8.5-10.1 [facility] Comment on above: Performed By: #### C MP, BNP, CK ####[facility] Uvovuixjsl1416 [place] [address]Dr. Garima Pulliam Chloride [Moles/Vol] 102 mmol/L Normal 98-107 [facility] Comment on above: Performed By: #### C MP, BNP, CK ####[facility] Yfjlbcepbg0814 [place] [address]Dr. Garima Pulliam CO2 [Moles/Vol] 29.7 mmol/L Normal 21.0-32.0 [facility] Comment on above: Performed By: #### C MP, BNP, CK ####[facility] Moqfjptfvq9405 [place] [address]Dr. Garima Pulliam Creatinine [Mass/Vol] 0.79 mg/dL Normal 0.70-1.30 [facility] Comment on above: Performed By: #### C MP, BNP, CK ####[facility] Zclldaaqkz1389 [place] [address]Dr. Garima Pulliam EGFR-AF LEBANESE >60 Normal >=60 [facility] Comment on above: Performed By: #### C MP, BNP, CK ####[facility] Oryeeepjuc6706 [place] [address]Dr. Garima Pulliam EGFR-NON AF LEBANESE >60 Normal >=60 [facility] Comment on above: Performed By: #### C MP, BNP, CK ####[facility] Uqyeljrvab4797 [place] [address]Dr. Garima Pulliam Globulin (S) [Mass/Vol] 3.0 g/dL Normal [facility] Comment on above: Performed By: #### C MP, BNP, CK ####[facility] Rzytmnepan5395 [place] [address]Dr. Garima Pulliam Glucose [Mass/Vol] 202 mg/dL Critically high 74-106 T [facility] Comment on above: Performed By: #### C MP, BNP, CK ####[facility] Agskwhqnxp8245 [place] [address]Dr. Garima Heraclio Potassium [Moles/Vol] 4.0 mmol/L Normal 3.5-5.1 [facility] Comment on above: Performed By: #### C MP, BNP, CK ####[facility] Zptzmvylra[address] [place], [place] [address]Dr. Chapisrenu Pulliam Protein [Mass/Vol] 6.6 g/dL Normal 6.4-8.2 [facility] Comment on above: Performed By: #### C MP, BNP, CK ####[facility] [address]rdbxhupw[address] [place], [place] [address]Dr. Garima Heraclio Sodium [Moles/Vol] 138 mmol/L Normal 136-145 [facility] Comment on above: Performed By: #### C MP, BNP, CK ####[facility] [address]ekobkdlpa[address] [place], [place] [address]Dr. Garima Heraclio Urea nitrogen [Mass/Vol] 10.0 mg/dL Normal 7.0-18.0 [facility] Comment on above: Performed By: #### C MP, BNP, CK ####[facility] Iozsupowxt0849 [place] [address]Dr. Garima Pulliam Urea nitrogen/Creatinine [Mass ratio] 12.7 mg/mg Normal [facility] Comment on above: Performed By: #### C MP, BNP, CK ####[facility] Bqahpntxtc8153 [place] [address]Dr. Garima Pulliam US VERONICA DOP LEG BILon 023 US VERONICA DOP LEG BENOIT Normal [facility] CBC AUTO DIFFon 01-13-2023 BASO # 0.0 103/ul Normal 0.0-0.1 [facility] Comment on above: Performed By: #### C BC ####[facility] Spmtxxrtrx7732 [place] [address]Dr. Garima Pulliam Basophils/100 WBC (Bld) 0.0 % Critically low 0.2-2.0 [facility] Comment on above: Performed By: #### C BC ####[facility] Kjeqjvrfwt4249 [place] [address]Dr. Garima Pulliam EO # 0.0 103/ul Normal 0.0-0.7 [facility] Comment on above: Performed By: #### C BC ####[facility] Zkjijygsin0066 [place] [address]Dr. Garima Pulliam Eosinophils/100 WBC (Bld) 0.0 % Critically low 0.9-7.0 [facility] Comment on above: Performed By: #### C BC ####[facility] Hqetxauhzl2609 [place] [address]Dr. Garima Pulliam Erythrocyte distribution width (RBC) [Ratio] 13.2 % Normal 11.0-15.0 [facility] Comment on above: Performed By: #### C BC ####[facility] Dsbfbzjlci3990 [place] [address]Dr. Garima Pulliam Hematocrit (Bld) [Volume fraction] 46.7 % Normal 42.0-54.0 [facility] Comment on above: Performed By: #### C BC ####[facility] Brposekqfe1983 [place] [address]Dr. Garima Pulliam Hemoglobin (Bld) [Mass/Vol] 15.6 g/dL Normal 14.0-18.0 [facility] Comment on above: Performed By: #### C BC ####[facility] Khiyegrige5495 [place] [address]Dr. Chapisrenu Heraclio IG # 0.01 10e3/ul Normal 0.00-0.03 [facility] Comment on above: Performed By: #### C BC ####[facility] Yksdrdhlgj3030 [place] [id number]. Garima Pulliam IG % 0.2 % Normal 0.0-0.5 [facility] Comment on above: Performed By: #### C BC ####[facility] Sbrntkwyln7067 [place] [id number]. Garima Pulliam LYMPH # 0.8 103/ul Critically low 1.2-3.8 [facility] Comment on above: Performed By: #### C BC ####[facility] Wyyrxfgkps4255 [place] [id number]. Garima Pulliam Lymphocytes/100 WBC (Bld) 12.7 % Critically low 20.5-60.0 [facility] Comment on above: Performed By: #### C BC ####[facility] Hdbpkdrlnd4125 [place] [id number]. Garima Pulliam MANUAL DIFF REQ NO Normal [facility] Comment on above: Performed By: #### C BC ####[facility] Gvljrttijm0089 [place] [id number]. Garima Pulliam MCH (RBC) [Entitic mass] 30.2 pg Normal 25.9-34.0 [facility] Comment on above: Performed By: #### C BC ####[facility] Xgchzbpyzj3896 [place] [id number]. Garima Pulliam MCHC (RBC) [Mass/Vol] 33.4 g/dL Normal 29.9-35.2 [facility] Comment on above: Performed By: #### C BC ####[facility] Bipgqigotg5550 [place] [id number]. Garima Pulliam MCV (RBC) [Entitic vol] 90.3 fL Normal 80.0-94.0 [facility] Comment on above: Performed By: #### C BC ####[facility] Cwuphuizri3194 [place] [id number]. Garima Pulliam MONO # 0.1 103/ul Critically low 0.3-0.8 [facility] Comment on above: Performed By: #### C BC ####[facility] Hoqvyyquaz1598 [place] [id number]. Garima Pulliam Monocytes/100 WBC (Bld) 0.9 % Critically low 1.7-12.0 [facility] Comment on above: Performed By: #### C BC ####[facility] Xtisxomdod5063 [place] [id number]. Garima Pulliam NEUT # 5.6 103/ul Normal 1.4-6.5 [facility] Comment on above: Performed By: #### C BC ####[facility] Ebtwtidvvh9535 [place] [id number]. Garima Pulliam Neutrophils/100 WBC (Bld) 86.2 % Critically high 43.0-75.0 [facility] Comment on above: Performed By: #### C BC ####[facility] Xvnakluvfp6279 [place] [address]Dr. Garima Pulliam Platelet mean volume (Bld) [Entitic vol] 9.1 fL Critically low 9.5-13.5 [facility] Comment on above: Performed By: #### C BC ####[facility] Almrerxsiq[address] [place] [id number]. Garima Pulliam PLT 169 103/ul Normal 150-450 [facility] Comment on above: Performed By: #### C BC ####[facility] Mefzdnaolj5814 [place] [id number]. Garima Pulliam RBC 5.17 106/ul Normal 4.70-6.10 [facility] Comment on above: Performed By: #### C BC ####[facility] Ydjtvzb[address] [place], [place] [address]Dr. Garima Pulliam WBC 6.5 103/ul Normal 4.0-11.0 [facility] Comment on above: Performed By: #### C BC ####[facility] Ffhrqhjjnf[address] [place] [address]Dr. Garima Pulliam D-DIMERon 01-13-2023 D-DIMER 0.41 mg/L FEU Normal <=0.59 The [facility] Comment on above: Performed By: #### D DIM ####[facility] Llvmjwjlzt[address] [place] [address]Dr. Garima Pulliam D-DIMER COMMENTS SEE BELOW Normal The [facility] Comment on above: Result Comment: Incr [...] hospitalization. Performed By: #### D DIM ####[facility] [address]dxpiubvvz[address] [place], [place] [address]Dr. Garima Pulliam PROF 14(COMP METB)on 023 Albumin [Mass/Vol] 3.4 g/dL Normal 3.4-5.0 [facility] Comment on above: Performed By: #### C MP ####[facility] Sxreaeeebq[address] [place], [place] [address]Dr. Garima Pulliam Albumin/Globulin [Mass ratio] 1.3 {ratio} Normal [facility] Comment on above: Performed By: #### C MP ####[facility] Arqnowxhjd[address] [place], [place] [address]Dr. Garima Pulliam ALP [Catalytic activity/Vol] 83 U/L Normal 46-116 [facility] Comment on above: Performed By: #### C MP ####[facility] Eziezmfxhq4[address] [place] [address]Dr. Garima Pulliam ALT [Catalytic activity/Vol] 25 U/L Normal 16-63 [facility] Comment on above: Performed By: #### C MP ####[facility] Otwuycskig6231 [place] [address]Dr. Garima Pulliam Anion gap [Moles/Vol] 14.5 mmol/L Normal [facility] Comment on above: Performed By: #### C MP ####[facility] Uwwarsfpez33[address] [place], [place] [address]Dr. Garima Pulliam AST [Catalytic activity/Vol] 19 U/L Normal 15-37 [facility] Comment on above: Performed By: #### C MP ####[facility] Zyvxvknrcw[address] [place], [place] [address]Dr. Garima Pulliam Bilirubin [Mass/Vol] 0.4 mg/dL Normal 0.2-1.0 [facility] Comment on above: Performed By: #### C MP ####[facility] Ymcnvwjqfu50[address] [place], [place] [address]Dr. Garima Pulliam Calcium [Mass/Vol] 8.7 mg/dL Normal 8.5-10.1 [facility] Comment on above: Performed By: #### C MP ####[facility] Ynipdwlomp[address] [place], [place] [address]Dr. Garima Pulliam Chloride [Moles/Vol] 104 mmol/L Normal 98-107 [facility] Comment on above: Performed By: #### C MP ####[facility] Rspdsicagw[address] [place], [place] [address]Dr. Garima Pulliam CO2 [Moles/Vol] 24.5 mmol/L Normal 21.0-32.0 [facility] Comment on above: Performed By: #### C MP ####[facility] Lyjwclzxsi43[address] [place], [place] [address]Dr. Garima Pulliam Creatinine [Mass/Vol] 0.70 mg/dL Normal 0.70-1.30 [facility] Comment on above: Performed By: #### C MP ####[facility] Hveiddkjfy[address] [place], [place] [address]Dr. Garima Heraclio EGFR-AF LEBANESE >60 Normal >=60 [facility] Comment on above: Performed By: #### C MP ####[facility] Reoexdbriw6[address] [place], [place] [address]Dr. Chapisrenu Heraclio EGFR-NON AF LEBANESE >60 Normal >=60 [facility] Comment on above: Performed By: #### C MP ####[facility] Rwesuekivw[address] [place], [place] [address]Dr. Garima Heraclio Globulin (S) [Mass/Vol] 2.6 g/dL Normal [facility] Comment on above: Performed By: #### C MP ####[facility] Buoddbrrxj8[address] [place] [address]Dr. Garima Pulliam Glucose [Mass/Vol] 196 mg/dL Critically high 74-106 T [facility] Comment on above: Performed By: #### C MP ####[facility] Hokxkpuhyf8[address] [place] [address]Dr. Garima Heraclio Potassium [Moles/Vol] 4.0 mmol/L Normal 3.5-5.1 [facility] Comment on above: Performed By: #### C MP ####[facility] Qyqcbxzfhv0463[address] [place], [place] [address]Dr. Garima Heraclio Protein [Mass/Vol] 6.0 g/dL Critically low 6.4-8.2 [facility] Comment on above: Performed By: #### C MP ####[facility] Caattlkaov6618[address] [place], [place] [address]Dr. Garima Heraclio Sodium [Moles/Vol] 139 mmol/L Normal 136-145 [facility] Comment on above: Performed By: #### C MP ####[facility] Sibrypytlk4[address] [place], [place] [address]Dr. Garima Heraclio Urea nitrogen [Mass/Vol] 7.0 mg/dL Normal 7.0-18.0 [facility] Comment on above: Performed By: #### C MP ####[facility] Ckpvkagoez4968[address] [place], [place] [address]Dr. Garima Hercalio Urea nitrogen/Creatinine [Mass ratio] 10.0 mg/mg Normal [facility] Comment on above: Performed By: #### C MP ####[facility] Prldlogarw9357[address] [place], [place] [address]Dr. Garima Pulliam BNPon 01-12-2023 Natriuretic peptide B (Bld) [Mass/Vol] 141.0 pg/mL Normal <=900.0 [facility] Comment on above: Performed By: #### C MP, BNP, HSTROPN ####[facility] Mkbkonckxe9457[address] [place], [place] [address]Dr. Garima Pulliam CBC AUTO DIFFon 01-12-2023 BASO # 0.0 103/ul Normal 0.0-0.1 [facility] Comment on above: Performed By: #### C BC ####[facility] Uliocdzbyt1713[address] [place], [place] [address]Dr. Garima Heraclio Basophils/100 WBC (Bld) 0.2 % Normal 0.2-2.0 [facility] Comment on above: Performed By: #### C BC ####[facility] Alsyjcjjjc9[address] [place], [place] [address]Dr. Garima Pulliam EO # 0.2 103/ul Normal 0.0-0.7 [facility] Comment on above: Performed By: #### C BC ####[facility] Ewldjrpkva4030[address] [place], [place] [address]Dr. Garima Pulliam Eosinophils/100 WBC (Bld) 2.7 % Normal 0.9-7.0 [facility] Comment on above: Performed By: #### C BC ####[facility] Mjbeexvqil8[address] [place], [place] [address]Dr. Chapisrenu Pulliam Erythrocyte distribution width (RBC) [Ratio] 13.3 % Normal 11.0-15.0 [facility] Comment on above: Performed By: #### C BC ####[facility] Wbsruqlhds7[address] [place], [place] [address]Dr. Garima Pulliam Hematocrit (Bld) [Volume fraction] 42.3 % Normal 42.0-54.0 [facility] Comment on above: Performed By: #### C BC ####[facility] Ugqeebueag7969[address] [place], [place] [address]Dr. Garima Pulliam Hemoglobin (Bld) [Mass/Vol] 14.3 g/dL Normal 14.0-18.0 [facility] Comment on above: Performed By: #### C BC ####[facility] Kfwfdvsegy3269[address] [place], [place] [address]Dr. Garima Pulliam IG # 0.02 10e3/ul Normal 0.00-0.03 [facility] Comment on above: Performed By: #### C BC ####[facility] Ehidqkclqg9056 [place] [id number]. Garima Pulliam IG % 0.2 % Normal 0.0-0.5 [facility] Comment on above: Performed By: #### C BC ####[facility] Pxgtfgspvm3112 [place] [address]Dr. Garima Pulliam LYMPH # 2.6 103/ul Normal 1.2-3.8 [facility] Comment on above: Performed By: #### C BC ####[facility] Bzneuuunhq5637 [place] [address]Dr. Garima Pulliam Lymphocytes/100 WBC (Bld) 29.6 % Normal 20.5-60.0 [facility] Comment on above: Performed By: #### C BC ####[facility] Ovhniayuhm[address] [place], [place] [address]Dr. Garima Pulliam MANUAL DIFF REQ NO Normal The [facility] Comment on above: Performed By: #### C BC ####[facility] Zhoylicoyu[address] [place] [address]Dr. Garima Heraclio MCH (RBC) [Entitic mass] 30.2 pg Normal 25.9-34.0 [facility] Comment on above: Performed By: #### C BC ####[facility] Voakqntsuj00[address] [place], [place] [address]Dr. Garima Heraclio MCHC (RBC) [Mass/Vol] 33.8 g/dL Normal 29.9-35.2 [facility] Comment on above: Performed By: #### C BC ####[facility] Fczwyzvghy[address] [place] [address]Dr. Garima Pulliam MCV (RBC) [Entitic vol] 89.2 fL Normal 80.0-94.0 [facility] Comment on above: Performed By: #### C BC ####[facility] Hungyzfusd1184[address] [place], [place] [address]Dr. Garima Pulliam MONO # 0.7 103/ul Normal 0.3-0.8 [facility] Comment on above: Performed By: #### C BC ####[facility] Uqznywnfao[address] [place], [place] [address]Dr. Garima Pulliam Monocytes/100 WBC (Bld) 8.3 % Normal 1.7-12.0 [facility] Comment on above: Performed By: #### C BC ####[facility] Ndcfpxadjv47[address] [place] [address]Dr. Garima Pulliam NEUT # 5.1 103/ul Normal 1.4-6.5 [facility] Comment on above: Performed By: #### C BC ####[facility] Czplieaqrt5249 [place] [address]Dr. Garima Pulliam Neutrophils/100 WBC (Bld) 59.0 % Normal 43.0-75.0 [facility] Comment on above: Performed By: #### C BC ####[facility] Oudlblrgca2386 [place] [address]Dr. Garima Pulliam Platelet mean volume (Bld) [Entitic vol] 8.7 fL Critically low 9.5-13.5 [facility] Comment on above: Performed By: #### C BC ####[facility] Uhfpimflgf4434 [place] [address]Dr. Garima Pulliam PLT 182 103/ul Normal 150-450 [facility] Comment on above: Performed By: #### C BC ####[facility] Ggdxlncqnw4220 [place] [address]Dr. Garima Pulliam RBC 4.74 106/ul Normal 4.70-6.10 [facility] Comment on above: Performed By: #### C BC ####[facility] Wkzguapogw3966[address] [place], [place] [address]Dr. Garima Pulliam WBC 8.7 103/ul Normal 4.0-11.0 [facility] Comment on above: Performed By: #### C BC ####[facility] Hutgheyuxn77[address] [place], [place] [address]Dr. Garima Pulliam [facility]25 SARS-CoV-2 (COVID-19) RNA MARIE+probe Ql (Unsp spec) Not detected Normal NOT DETECTED [facility] Comment on above: Result Comment: When diagnostic [...] for this test is supported by the Sustainability Coach of Health and Human Service's declaration that [...] used). Performed By: #### C VDTBH ####[facility] Pcjtqhqdyw6[address] [place] [address]Dr. Garima Pulliam PROF 14(COMP METB)on 023 Albumin [Mass/Vol] 3.6 g/dL Normal 3.4-5.0 [facility] Comment on above: Performed By: #### C MP, BNP, HSTROPN ####[facility] Aovqsalfoz1790[address] [place], [place] [address]Dr. Garima Pulliam Albumin/Globulin [Mass ratio] 1.5 {ratio} Normal [facility] Comment on above: Performed By: #### C MP, BNP, HSTROPN ####[facility] Gohzedajgd8[address] [place], [place] [address]Dr. Garima Pulliam ALP [Catalytic activity/Vol] 79 U/L Normal 46-116 [facility] Comment on above: Performed By: #### C MP, BNP, HSTROPN ####[facility] Tzdxavohym4085[address] [place], [place] [address]Dr. Garima Pulliam ALT [Catalytic activity/Vol] 27 U/L Normal 16-63 [facility] Comment on above: Performed By: #### C MP, BNP, HSTROPN ####[facility] Hxnfiijfwa5615 [place] [address]DrAdalberto Pulliam Anion gap [Moles/Vol] 11.7 mmol/L Normal Th e [facility] Comment on above: Performed By: #### C MP, BNP, HSTROPN ####[facility] Sxwnoilucx8594 [place] [address]Dr. Garima Pulliam AST [Catalytic activity/Vol] 21 U/L Normal 15-37 [facility] Comment on above: Performed By: #### C MP, BNP, HSTROPN ####[facility] Uxqbkrlgfc4823 [place] [address]Dr. Garima Pulliam Bilirubin [Mass/Vol] 0.3 mg/dL Normal 0.2-1.0 [facility] Comment on above: Performed By: #### C MP, BNP, HSTROPN ####[facility] Uwnumkzutv3[address] [place], [place] [address]Dr. Garima Pulliam Calcium [Mass/Vol] 8.9 mg/dL Normal 8.5-10.1 [facility] Comment on above: Performed By: #### C MP, BNP, HSTROPN ####[facility] Agnbagwjwj040[address] [place], [place] [address]Dr. Garima Pulliam Chloride [Moles/Vol] 107 mmol/L Normal 98-107 [facility] Comment on above: Performed By: #### C MP, BNP, HSTROPN ####[facility] Qkzymqciqb6223 [place] [address]Dr. Garima Pulliam CO2 [Moles/Vol] 26.0 mmol/L Normal 21.0-32.0 [facility] Comment on above: Performed By: #### C MP, BNP, HSTROPN ####[facility] Eqdphisobr6501[address] [place], [place] [address]Dr. Garima Pulliam Creatinine [Mass/Vol] 0.65 mg/dL Critically low 0.70-1.30 [facility] Comment on above: Performed By: #### C MP, BNP, HSTROPN ####[facility] Gcvfqpevmd1214 [place] [address]Dr. Garima Pulliam EGFR-AF LEBANESE >60 Normal >=60 [facility] Comment on above: Performed By: #### C MP, BNP, HSTROPN ####[facility] Nptejfvcfw97[address] [place] [address]Dr. Garima Pulliam EGFR-NON AF LEBANESE >60 Normal >=60 [facility] Comment on above: Performed By: #### C MP, BNP, HSTROPN ####[facility] Ibthibcttf6884 [place] [address]Dr. Garima Pulliam Globulin (S) [Mass/Vol] 2.4 g/dL Normal [facility] Comment on above: Performed By: #### C MP, BNP, HSTROPN ####[facility] Yqrpombhpf[address] [place], [place] [address]Dr. Garima Pulliam Glucose [Mass/Vol] 85 mg/dL Normal 74-106 [facility] Comment on above: Performed By: #### C MP, BNP, HSTROPN ####[facility] Yodvdrkzwr24[address] [place], [place] [address]Dr. Garima Pulliam Potassium [Moles/Vol] 3.7 mmol/L Normal 3.5-5.1 [facility] Comment on above: Performed By: #### C MP, BNP, HSTROPN ####[facility] Ioxlucgdgt7065[address] [place], [place] [address]Dr. Garima Pulliam Protein [Mass/Vol] 6.0 g/dL Critically low 6.4-8.2 Th [facility] Comment on above: Performed By: #### C MP, BNP, HSTROPN ####[facility] Ptmsrbfmsf[address] [place], [place] [address]Dr. Garima Pulliam Sodium [Moles/Vol] 141 mmol/L Normal 136-145 The [facility] Comment on above: Performed By: #### C MP, BNP, HSTROPN ####[facility] Ypdvevmxsb2883[address] [place], [place] [address]Dr. Garima Pulliam Urea nitrogen [Mass/Vol] 5.0 mg/dL Critically low 7.0-18.0 [facility] Comment on above: Performed By: #### C MP, BNP, HSTROPN ####[facility] Nvwfnheiou8775 [place] [address]Dr. Garima Pulliam Urea nitrogen/Creatinine [Mass ratio] 7.7 mg/mg Normal [facility] Comment on above: Performed By: #### C MP, BNP, HSTROPN ####[facility] Lbdntwkjej2987 [place] [address]Dr. Garima Pulliam PROTIMEon 01-12-2023 INR Coag (PPP) [Relative time] 1.16 {INR} Normal [facility] Comment on above: Performed By: #### P TT, PT ####[facility] Ljashwcwit[address] [place], [place] [address]Dr. Garima Pulliam INR GUIDELINES SEE BELOW Normal [facility] Comment on above: Result Comment: WESLEY RED INR: 2.0 - 3.0 CONDITIONS NOT LISTED BELOW 2.5 - 3.5 FOR PROSTHETIC HEART VALVE REPLACEMENT 2.5 - 3.5 RECURRENT THROMBOSIS Performed By: #### P TT, PT ####[facility] Zrwcddqmjw[address] [place], [place] [address]Dr. Garima Pullima PT Coag (PPP) [Time] 12.2 s Critically high 9.0-11.6 [facility] Comment on above: Performed By: #### P TT, PT ####[facility] Yrhctgookd[address] [place], [place] [address]Dr. Garima Pulliam PTTon 01-12-2023 aPTT Coag (Bld) [Time] 29.1 s Normal 22.3-36.2 [facility] Comment on above: Performed By: #### P TT, PT ####[facility] Nkcxkfvlqp[address] [place], [place] [address]Dr. Garima Pulliam TROPONIN, HIGH SENSITIVITYon 01-12-2023 HSTROP 10.3 pg/mL Normal 4.0-76.1 [facility] Comment on above: Result Comment: CUT- OFF POINTS HAVE BEEN ESTABLISHED BASED ON THE FOURTH UNIVERSAL DEFINITIONS OF MYOCARDIALINFARCTION. THE UPPER REFERENCE LIMIT (URL) OF TROPONIN, DEFINED THE 99TH PERCENTILE OFcTnI DISTRIBUTION IN A REFERENCE POPULATION, HAS BEEN CONFIRMED THE DECISION THRESHOLDFOR MS DIAGNOSIS. Performed By: #### H STROPN ####[facility] Lhyeltajok06[address] [place] [id number]. Garima Pulliam HSTROP 9.2 pg/mL Normal 4.0-76.1 [facility] Comment on above: Result Comment: CUT- OFF POINTS HAVE BEEN ESTABLISHED BASED ON THE FOURTH UNIVERSAL DEFINITIONS OF MYOCARDIALINFARCTION. THE UPPER REFERENCE LIMIT (URL) OF TROPONIN, DEFINED THE 99TH PERCENTILE OFcTnI DISTRIBUTION IN A REFERENCE POPULATION, HAS BEEN CONFIRMED THE DECISION THRESHOLDFOR MS DIAGNOSIS. Performed By: #### C MP, BNP, HSTROPN ####[facility] Redvahsmdq36[address] [place] [address]Dr. Garima Pulliam XR CHEST 1 Von 01-12-2023 XR CHEST 1 V Normal [facility] XR CHEST 1 Von 01-01-2023 XR CHEST 1 V Normal [facility] CARDIAC NASH 3-6on 3 CK [Catalytic activity/Vol] 196 U/L Normal 39-308 [facility] Comment on above: Performed By: #### C MREP ####[facility] Uwsgkamvgu5[address] [place] [address]Dr. Garima Pulliam CK.MB [Mass/Vol] 7.41 ng/mL Critically high <=3.60 [facility] Comment on above: Performed By: #### C MREP ####[facility] Izuzgdgwxb22[address] [place] [address]Dr. Garima Pulliam HSTROP 10.3 pg/mL Normal 4.0-76.1 [facility] Comment on above: Result Comment: CUT- OFF POINTS HAVE BEEN ESTABLISHED BASED ON THE FOURTH UNIVERSAL DEFINITIONS OF MYOCARDIALINFARCTION. THE UPPER REFERENCE LIMIT (URL) OF TROPONIN, DEFINED THE 99TH PERCENTILE OFcTnI DISTRIBUTION IN A REFERENCE POPULATION, HAS BEEN CONFIRMED THE DECISION THRESHOLDFOR MS DIAGNOSIS. Performed By: #### C MREP ####[facility] Azwpwnhusz5[address] [place] [id number]. Garima Pulliam XR CHEST 1 Von 12-26-2022 XR CHEST 1 V Normal [facility] BNPon 12-25-2022 Natriuretic peptide B (Bld) [Mass/Vol] 98.0 pg/mL Normal <=900.0 [facility] Comment on above: Performed By: #### B MARVIN FRENCH CMADM ####[facility] Gnabplnuch[address] [place] [address]Dr. Garima Heraclio CARDIAC NASH ADMITon 023 CK [Catalytic activity/Vol] 208 U/L Normal 39-308 [facility] Comment on above: Performed By: #### B MARVIN FRENCH CMADM ####[facility] Dvakujxati44[address] [place] [address]Dr. Garima Pulliam CK.MB [Mass/Vol] 7.63 ng/mL Critically high <=3.60 [facility] Comment on above: Performed By: #### B MARVIN FRENCH CMADM ####[facility] Cjlqdriapl25[address] [place] [address]Dr. Chapisrenu Pulliam HSTROP 8.8 pg/mL Normal 4.0-76.1 [facility] Comment on above: Result Comment: CUT- OFF POINTS HAVE BEEN ESTABLISHED BASED ON THE FOURTH UNIVERSAL DEFINITIONS OF MYOCARDIALINFARCTION. THE UPPER REFERENCE LIMIT (URL) OF TROPONIN, DEFINED THE 99TH PERCENTILE OFcTnI DISTRIBUTION IN A REFERENCE POPULATION, HAS BEEN CONFIRMED THE DECISION THRESHOLDFOR MS DIAGNOSIS. Performed By: #### B MARVIN FRENCH CMADM ####[facility] Mygwkiequu60[address] [place] [address]Dr. Garima Pulliam DORIS 83 ng/mL Normal 16-96 [facility] Comment on above: Performed By: #### B MARVIN FRENCH CMADM ####[facility] Bwdmowxheq6[address] [place] [address]Dr. Garima Pulliam CBC AUTO DIFFon 12-25-2022 BASO # 0.0 103/ul Normal 0.0-0.1 [facility] Comment on above: Performed By: #### C BC ####[facility] Ylxodkwsor2041 [place] [address]Dr. Garima Pulliam Basophils/100 WBC (Bld) 0.0 % Critically low 0.2-2.0 [facility] Comment on above: Performed By: #### C BC ####[facility] Hphvsfhvvi4423 [place] [id number]. Garima Pulliam EO # 0.0 103/ul Normal 0.0-0.7 [facility] Comment on above: Performed By: #### C BC ####[facility] Ikzuudxmsq2517 [place] [id number]. Garima Pulliam Eosinophils/100 WBC (Bld) 0.7 % Critically low 0.9-7.0 [facility] Comment on above: Performed By: #### C BC ####[facility] Rmxwciivzv[address] [place], [place] [address]Dr. Garima Pulliam Erythrocyte distribution width (RBC) [Ratio] 13.4 % Normal 11.0-15.0 [facility] Comment on above: Performed By: #### C BC ####[facility] Fijgxyhulf[address] [place], [place] [address]Dr. Garima Pulliam Hematocrit (Bld) [Volume fraction] 42.9 % Normal 42.0-54.0 [facility] Comment on above: Performed By: #### C BC ####[facility] Ydcellhirm[address] [place], [place] [address]Dr. Garima Pulliam Hemoglobin (Bld) [Mass/Vol] 14.4 g/dL Normal 14.0-18.0 [facility] Comment on above: Performed By: #### C BC ####[facility] Ermcupucrb[address] [place], [place] [address]Dr. Garima Pulliam IG # 0.00 10e3/ul Normal 0.00-0.03 [facility] Comment on above: Performed By: #### C BC ####[facility] Pmxptckryv[address] [place], [place] [address]Dr. Garima Pulliam IG % 0.0 % Normal 0.0-0.5 [facility] Comment on above: Performed By: #### C BC ####[facility] Bhujcexqmk37[address] [place], [place] [address]Dr. Garima Pulliam LYMPH # 2.4 103/ul Normal 1.2-3.8 [facility] Comment on above: Performed By: #### C BC ####[facility] Roymagfhrt5016 [place] [id number]. Garima Heracloi Lymphocytes/100 WBC (Bld) 29.2 % Normal 20.5-60.0 [facility] Comment on above: Performed By: #### C BC ####[facility] Ohxhhnwmui1112 [place] [id number]. Garima Pulliam MANUAL DIFF REQ NO Normal [facility] Comment on above: Performed By: #### C BC ####[facility] Isoekuhrqu7944 [place] [id number]. Garima Heraclio MCH (RBC) [Entitic mass] 30.7 pg Normal 25.9-34.0 [facility] Comment on above: Performed By: #### C BC ####[facility] [address]zev[address]weue[address] [place], [place] [address]Dr. Garima Pulliam MCHC (RBC) [Mass/Vol] 33.6 g/dL Normal 29.9-35.2 [facility] [facility] Comment on above: Performed By: #### C BC ####[facility] [address] [place], [place] [id number]. Garima Heraclio MCV (RBC) [Entitic vol] 91.5 fL Normal 80.0-94.0 [facility] Comment on above: Performed By: #### C BC ####[facility] Ferdkkukyw[address] [place], [place] [address]Dr. Garima Pulliam MONO # 0.0 103/ul Critically low 0.3-0.8 [facility] Comment on above: Performed By: #### C BC ####[facility] [address]wom[address] [place], [place] [address]Dr. Garima Pulliam Monocytes/100 WBC (Bld) 8.0 % Normal 1.7-12.0 [facility] Comment on above: Performed By: #### C BC ####[facility] Skdinboxdn[address] [place], [place] [address]Dr. Garima Pulliam NEUT # 5.1 103/ul Normal 1.4-6.5 [facility] Comment on above: Performed By: #### C BC ####[facility] Iefrwexggt5972 [place], [place] [address]It. Garima Pulliam Neutrophils/100 WBC (Bld) 62.8 % Normal 43.0-75.0 [facility] Comment on above: Performed By: #### C BC ####[facility] Zocykgqjll3429 [place], [place] [address]Sf. Garima Pulliam Platelet mean volume (Bld) [Entitic vol] 8.6 fL Critically low 9.5-13.5 [facility] Comment on above: Performed By: #### C BC ####[facility] Tdocwdjygk9408 [place], [place] [address]Xe. Garima Pulliam PLT 200 103/ul Normal 150-450 [facility] Comment on above: Performed By: #### C BC ####[facility] Hmksnvqsto7109 [place], [place] [address]Kq. Garima Pulliam RBC 4.69 106/ul Critically low 4.70-6.10 The [facility] Comment on above: Performed By: #### C BC ####[facility] Uoujmgrqvi9290 [place], [place] [address]Di. Garima Pulliam WBC 8.2 103/ul Normal 4.0-11.0 [facility] Comment on above: Performed By: #### C BC ####[facility] Dtsjfrcral7428 [place], [place] [address]Um. Garima Pulliam Covid-19 PCR (CVDTB)on SARS-CoV-2 (COVID-19) RNA MARIE+probe Ql (Unsp spec) Not detected Normal NOT DETECTED [facility] Comment on above: Result Comment: When diagnostic [...] for this test is supported by the [place] of [employer] and Human Service's declaration that [...] used). Performed By: #### C VDTBH ####[facility] Dqcbpukkbm[address] [place], [place] [address]DrAdalberto Pulliam INFLUENZA A AND B AGon 12-25 INFLUANEGH SEE BELOW Normal [facility] Comment on above: Result Comment: Nega tive for Flu A protein angiten. Infection due to Flu A cannot be ruled out. Flu A angiten in the sample may be below the detection limit of the test. Performed By: #### I NFLUAB ####[facility] Inmukxfqsv[address] [place], [place] [address]Dr. Garima Pulliam INFLUBNEG SEE BELOW Normal [facility] Comment on above: Result Comment: Nega tive for Flu B protein antigen. Infection due to Flu B cannot be ruled out. Flu B antigen in the sample may be below the detection limit of the test. Performed By: #### I NFLUAB ####[facility] Wrkqoywnww[address] [place], [place] [address]Dr. Garima Pulliam INFLUENZA A AG Negative Normal NEGATIVE SEE COMMENT [facility] Comment on above: Performed By: #### I NFLUAB ####[facility] Ihmuzbvivd35[address] [place], [place] [address]DrAdalberto Pulliam INFLUENZA B AG Negative Normal NEGATIVE SEE COMMENT [facility] Comment on above: Performed By: #### I NFLUAB ####[facility] Lyiggmreoq99[address] [place], [place] [address]DrAdalberto Pulliam PROF CHEM 8 (BAS METB)on Anion gap [Moles/Vol] 11.1 mmol/L Normal Th [facility] Comment on above: Performed By: #### B TABULATING MACHINE MECHANIC, BMP, CMADM ####[facility] Jvuqnnxmyi18[address] [place], [place] [address]Dr. Garima Pulliam Calcium [Mass/Vol] 8.5 mg/dL Normal 8.5-10.1 [facility] Comment on above: Performed By: #### B TABULATING MACHINE MECHANIC, MARVIN, CMAANA ROSA ####[facility] Qhsonkzoix[address] [place] [address]Dr. Garima Pulliam Chloride [Moles/Vol] 106 mmol/L Normal 98-107 [facility] Comment on above: Performed By: #### B TABULATING MACHINE MECHANIC, MARVIN, CMADM ####[facility] Crdqcmfebo2424 [place] [address]Dr. Garima Pulliam CO2 [Moles/Vol] 27.4 mmol/L Normal 21.0-32.0 [facility] Comment on above: Performed By: #### B TABULATING MACHINE MECHANICMARVIN CMAANA ROSA ####[facility] Nbdqxbtbks37[address] [place] [address]Dr. Garima Pulliam Creatinine [Mass/Vol] 0.65 mg/dL Critically low 0.70-1.30 [facility] Comment on above: Performed By: #### B TABULATING MACHINE MECHANIC, MARVIN, CMADM ####[facility] Jlhtjgimmf06[address] [place] [address]Dr. Garima Pulliam EGFR-AF LEBANESE >60 Normal >=60 [facility] Comment on above: Performed By: #### B TABULATING MACHINE MECHANICMARVIN, CMADM ####[facility] Ypsxdtvnxa7758 [place] [address]Dr. Garima Pulliam EGFR-NON AF LEBANESE >60 Normal >=60 [facility] Comment on above: Performed By: #### B TABULATING MACHINE MECHANIC, MARVIN, CMADM ####[facility] Rzimzmwnuo4473 [place] [address]Dr. Garima Pulliam Glucose [Mass/Vol] 140 mg/dL Critically high 74-106 [facility] Comment on above: Performed By: #### B TABULATING MACHINE MECHANIC, MARVIN, CMADM ####[facility] Dmjgwfgpsj6504 [place] [address]Dr. Garima Pulliam Potassium [Moles/Vol] 3.5 mmol/L Normal 3.5-5.1 [facility] Comment on above: Performed By: #### B TABULATING MACHINE MECHANIC, MARVIN, CMADM ####[facility] Doedaeclip[address]64 [place] [address]Dr. Garima Pulliam Sodium [Moles/Vol] 141 mmol/L Normal 136-145 [facility] Comment on above: Performed By: #### B TABULATING MACHINE MECHANIC, BMP, CMADM ####[facility] Hqczmvgcvi6407 [place] [address]Dr. Garima Pulliam Urea nitrogen [Mass/Vol] 8.0 mg/dL Normal 7.0-18.0 [facility] Comment on above: Performed By: #### B TABULATING MACHINE MECHANIC, BMP, CMADM ####[facility] Ubswbyeqsp7757 [place] [address]Dr. Garima Pulliam Urea nitrogen/Creatinine [Mass ratio] 12.3 mg/mg Normal [facility] Comment on above: Performed By: #### B TABULATING MACHINE MECHANIC, BMP, CMADM ####[facility] Nkxjrgfjki6030 [place] [address]Dr. Garima Pulliam CARDIAC NASH ADMITon 023 CK [Catalytic activity/Vol] 165 U/L Normal 39-308 [facility] Comment on above: Performed By: #### B MP, CMADM ####[facility] Vgncdsnott[address] [place], [place] [address]Dr. Garima Pulliam CK.MB [Mass/Vol] 6.48 ng/mL Critically high <=3.60 [facility] Comment on above: Performed By: #### B MP, CMADM ####[facility] Hkvmcudusy[address] [place], [place] [address]Dr. Garima Heraclio HSTROP 11.7 pg/mL Normal 4.0-76.1 [facility] Comment on above: Result Comment: CUT- OFF POINTS HAVE BEEN ESTABLISHED BASED ON THE FOURTH UNIVERSAL DEFINITIONS OF MYOCARDIALINFARCTION. THE UPPER REFERENCE LIMIT (URL) OF TROPONIN, DEFINED THE 99TH PERCENTILE OFcTnI DISTRIBUTION IN A REFERENCE POPULATION, HAS BEEN CONFIRMED THE DECISION THRESHOLDFOR MS DIAGNOSIS. Performed By: #### B MP, CMADM ####[facility] Ccqyizqppq5390 [place] [address]Dr. Garima Pulliam DORIS 83 ng/mL Normal 16-96 [facility] Comment on above: Performed By: #### B MP, CMADM ####[facility] Imfqznvmqq2710 [place] [address]Dr. Garima Heraclio CBC AUTO DIFFon 12-10-2022 BASO # 0.0 103/ul Normal 0.0-0.1 [facility] Comment on above: Performed By: #### C BC ####[facility] Ilivlwthin[address] [place], [place] [address]Dr. Garima Pulliam Basophils/100 WBC (Bld) 0.3 % Normal 0.2-2.0 [facility] Comment on above: Performed By: #### C BC ####[facility] Yorfkhyuje[address] [place], [place] [address]Dr. Chapisrenu Pulliam EO # 0.1 103/ul Normal 0.0-0.7 [facility] Comment on above: Performed By: #### C BC ####[facility] Enwgrqfrcj7[address] [place], [place] [address]Dr. Garima Pulliam Eosinophils/100 WBC (Bld) 0.4 % Critically low 0.9-7.0 [facility] Comment on above: Performed By: #### C BC ####[facility] Dtbozdvdix13[address] [place], [place] [address]Dr. Chapisrenu Pulliam Erythrocyte distribution width (RBC) [Ratio] 13.2 % Normal 11.0-15.0 [facility] Comment on above: Performed By: #### C BC ####[facility] Kfoepqhbso[address] [place], [place] [address]Dr. Garima Pulliam Hematocrit (Bld) [Volume fraction] 42.4 % Normal 42.0-54.0 [facility] Comment on above: Performed By: #### C BC ####[facility] Mnfycbwdzf3450[address] [place], [place] [address]Dr. Garima Pulliam Hemoglobin (Bld) [Mass/Vol] 14.4 g/dL Normal 14.0-18.0 [facility] Comment on above: Performed By: #### C BC ####[facility] Bztqqgtyjz04[address] [place], [place] [address]DrAdalberto Pulliam IG # 0.05 10e3/ul Critically high 0.00-0.03 [facility] Comment on above: Performed By: #### C BC ####[facility] Ursrgohdwi9402 [place] [address]DrAdalberto Pulliam IG % 0.4 % Normal 0.0-0.5 [facility] Comment on above: Performed By: #### C BC ####[facility] Ajdizwajry1210 [place] [address]DrAdalberto Pluliam LYMPH # 0.8 103/ul Critically low 1.2-3.8 [facility] Comment on above: Performed By: #### C BC ####[facility] Nrerqgietj1045 [place] [address]DrAdalberto Pulliam Lymphocytes/100 WBC (Bld) 6.5 % Critically low 20.5-60.0 [facility] Comment on above: Performed By: #### C BC ####[facility] Cpqzejaxlw[address] [place], [place] [address]DrAdalberto Pulliam MANUAL DIFF REQ NO Normal [facility] Comment on above: Performed By: #### C BC ####[facility] Rvgarddexy[address] [place], [place] [address]DrAdalberto Pulliam MCH (RBC) [Entitic mass] 30.5 pg Normal 25.9-34.0 [facility] Comment on above: Performed By: #### C BC ####[facility] Gbqkruglqv4[address] [place], [place] [address]DrAdalberto Pulliam MCHC (RBC) [Mass/Vol] 34.0 g/dL Normal 29.9-35.2 [facility] Comment on above: Performed By: #### C BC ####[facility] Xllkhlzowd435[address] [place], [place] [address]DrAdalberto Pulliam MCV (RBC) [Entitic vol] 89.8 fL Normal 80.0-94.0 [facility] Comment on above: Performed By: #### C BC ####[facility] Prfgnacpbd12[address] [place], [place] [address]DrAdalberto Pulliam MONO # 0.2 103/ul Critically low 0.3-0.8 [facility] Comment on above: Performed By: #### C BC ####[facility] Dspvideymq9673 [place] [address]Dr. Garima Pulliam Monocytes/100 WBC (Bld) 2.0 % Normal 1.7-12.0 [facility] Comment on above: Performed By: #### C BC ####[facility] Mhfbdbfpog12[address] [place] [address]Dr. Garima Pulliam NEUT # 10.5 103/ul Critically high 1.4-6.5 [facility] Comment on above: Performed By: #### C BC ####[facility] Abmilpjsbf5063[address] [place], [place] [address]Dr. Garima Heraclio Neutrophils/100 WBC (Bld) 90.4 % Critically high 43.0-75.0 [facility] Comment on above: Performed By: #### C BC ####[facility] Xsxpdparas8832[address] [place], [place] [address]Dr. Garima Pulliam Platelet mean volume (Bld) [Entitic vol] 9.4 fL Critically low 9.5-13.5 [facility] Comment on above: Performed By: #### C BC ####[facility] Ogodowcshm[address] [place] [address]Dr. Garima Pulliam PLT 198 103/ul Normal 150-450 [facility] Comment on above: Performed By: #### C BC ####[facility] Fxfqilcmrf3087 [place] [address]Dr. Garima Heraclio RBC 4.72 106/ul Normal 4.70-6.10 [facility] Comment on above: Performed By: #### C BC ####[facility] Hrgdccmnow5[address] [place], [place] [address]DrAdalberto Nationrenu Heraclio WBC 11.6 103/ul Critically high 4.0-11.0 The [facility] Comment on above: Performed By: #### C BC ####[facility] Urcgpcagpo[address] [place], [place] [address]DrAdalberto Pulliam PROF CHEM 8 (BAS METB)on Anion gap [Moles/Vol] 11.3 mmol/L Normal Th [facility] Comment on above: Performed By: #### B NANCY HERNANDEZ ####[facility] Ofleeguyjy[address] [place] [address]Dr. Garima Pulliam Calcium [Mass/Vol] 8.9 mg/dL Normal 8.5-10.1 [facility] Comment on above: Performed By: #### B NANCY HERNANDEZ ####[facility] Qaohlgkgmo5803 [place] [address]Dr. Chapisrenu Pulliam Chloride [Moles/Vol] 103 mmol/L Normal 98-107 [facility] Comment on above: Performed By: #### NANCY Larkin MP ####[facility] Wwmydvdrnx95[address] [place], [place] [address]Dr. Chapisrenu Pulliam CO2 [Moles/Vol] 28.2 mmol/L Normal 21.0-32.0 [facility] Comment on above: Performed By: #### NANCY Larkin MP ####[facility] Qmbsmxkivc1985[address] [place], [place] [address]Dr. Garima Pulliam Creatinine [Mass/Vol] 0.60 mg/dL Critically low 0.70-1.30 [facility] Comment on above: Performed By: #### NANCY Larkin MP ####[facility] Cwdagbjvsc35[address] [place], [place] [address]Dr. Garima Pulliam EGFR-AF LEBANESE >60 Normal >=60 [facility] Comment on above: Performed By: #### NANCY Larkin MP ####[facility] Zfxrcoencz4839 [place] [address]Dr. Garima Pulliam EGFR-NON AF LEBANESE >60 Normal >=60 [facility] Comment on above: Performed By: #### NANCY Larkin MP ####[facility] Zdsvyltfxa1240[address] [place], [place] [address]Dr. Garima Pulliam Glucose [Mass/Vol] 166 mg/dL Critically high 74-106 [facility] Comment on above: Performed By: #### NANCY Larkin MP ####[facility] Wsammdjmio2396 [place] [address]Dr. Chapisrenu Pulliam Potassium [Moles/Vol] 3.5 mmol/L Normal 3.5-5.1 [facility] Comment on above: Performed By: #### B NANCY HERNANDEZ ####[facility] Xwycitkxdh4263 [place] [address]Dr. Garima Pulliam Sodium [Moles/Vol] 139 mmol/L Normal 136-145 [facility] Comment on above: Performed By: #### B NANCY HERNANDEZ ####[facility] Ctexoudxkl66[address] [place], [place] [address]Dr. Garima Pulliam Urea nitrogen [Mass/Vol] 9.0 mg/dL Normal 7.0-18.0 [facility] Comment on above: Performed By: #### B NANCY HERNANDEZ ####[facility] Iaickrhdji6920[address] [place], [place] [address]Dr. Garima Pulliam Urea nitrogen/Creatinine [Mass ratio] 15.0 mg/mg Normal [facility] Comment on above: Performed By: #### B NANCY HERNANDEZ ####[facility] Ldqzzdncww57[address] [place], [place] [address]Dr. Chapisrenu Pulliam XR CHEST 1 Von 12-10-2022 XR CHEST 1 V Normal [facility] BNPon 11-27-2022 Natriuretic peptide B (Bld) [Mass/Vol] 95.0 pg/mL Normal <=900.0 [facility] Comment on above: Performed By: #### C MP, HSTROPN, BNP ####[facility] Khqvoffsfy[address] [place], [place] [address]Dr. Garima Pulliam CBC AUTO DIFFon 11-27-2022 BASO # 0.0 103/ul Normal 0.0-0.1 [facility] Comment on above: Performed By: #### C BC ####[facility] Vpeqdmaxqz4265[address] [place], [place] [address]Dr. Garima Pulliam Basophils/100 WBC (Bld) 0.2 % Normal 0.2-2.0 [facility] Comment on above: Performed By: #### C BC ####[facility] Yuejzislsa[address] [place] [id number]. Garima Pulliam EO # 0.2 103/ul Normal 0.0-0.7 [facility] Comment on above: Performed By: #### C BC ####[facility] Dguoawpcvp6068 [place] [address]Dr. Garima Pulliam Eosinophils/100 WBC (Bld) 2.0 % Normal 0.9-7.0 [facility] Comment on above: Performed By: #### C BC ####[facility] Agumyhckkk0838 [place] [address]Dr. Garima Pulliam Erythrocyte distribution width (RBC) [Ratio] 13.2 % Normal 11.0-15.0 [facility] Comment on above: Performed By: #### C BC ####[facility] Wmlxhssbok48[address] [place], [place] [address]Dr. Garima Pulliam Hematocrit (Bld) [Volume fraction] 42.4 % Normal 42.0-54.0 [facility] Comment on above: Performed By: #### C BC ####[facility] Vnfuhadtcb6033 [place] [address]Dr. Garima Pulliam Hemoglobin (Bld) [Mass/Vol] 14.4 g/dL Normal 14.0-18.0 [facility] Comment on above: Performed By: #### C BC ####[facility] Jrnvzvwoqy6354 [place] [address]Dr. Garima Pulliam IG # 0.04 10e3/ul Critically high 0.00-0.03 The [facility] Comment on above: Performed By: #### C BC ####[facility] Etzwssxgmn5493 [place] [address]Dr. Garima Pulliam IG % 0.4 % Normal 0.0-0.5 [facility] Comment on above: Performed By: #### C BC ####[facility] Nhznrhjyyb7915 [place] [address]Dr. Garima Pulliam LYMPH # 2.2 103/ul Normal 1.2-3.8 [facility] Comment on above: Performed By: #### C BC ####[facility] Ucrbjbawws1742 [place] [id number]. Garima Pulliam Lymphocytes/100 WBC (Bld) 21.5 % Normal 20.5-60.0 [facility] Comment on above: Performed By: #### C BC ####[facility] Wexnjeuktf5083 [place] [id number]. Garima Heraclio MANUAL DIFF REQ NO Normal [facility] Comment on above: Performed By: #### C BC ####[facility] Xdebpqeubv2337 [place] [address]Dr. Garima Heraclio MCH (RBC) [Entitic mass] 30.4 pg Normal 25.9-34.0 [facility] Comment on above: Performed By: #### C BC ####[facility] Kgbqlornbz4589 [place] [address]Dr. Garima Heraclio MCHC (RBC) [Mass/Vol] 34.0 g/dL Normal 29.9-35.2 [facility] Comment on above: Performed By: #### C BC ####[facility] Zybprqwrxx299[address] [place] [address]Dr. Garima Heraclio MCV (RBC) [Entitic vol] 89.6 fL Normal 80.0-94.0 [facility] Comment on above: Performed By: #### C BC ####[facility] Brrzkhnvtz[address] [place], [place] [address]Dr. Garima Pulliam MONO # 0.8 103/ul Normal 0.3-0.8 [facility] Comment on above: Performed By: #### C BC ####[facility] Ewuskivapf7220 [place] [address]Dr. Chapisrenu Pulliam Monocytes/100 WBC (Bld) 7.7 % Normal 1.7-12.0 [facility] Comment on above: Performed By: #### C BC ####[facility] Yeaewwuaoc6115 [place] [address]Dr. Garima Pulliam NEUT # 7.0 103/ul Critically high 1.4-6.5 [facility] Comment on above: Performed By: #### C BC ####[facility] Nwoepqimye5591 [place] [address]Dr. Garima Pulliam Neutrophils/100 WBC (Bld) 68.2 % Normal 43.0-75.0 [facility] Comment on above: Performed By: #### C BC ####[facility] Rjjtyotqke0473 [place] [address]Dr. Chapisrneu Heraclio Platelet mean volume (Bld) [Entitic vol] 8.9 fL Critically low 9.5-13.5 [facility] Comment on above: Performed By: #### C BC ####[facility] Ikqcrvqzxq6395 [place] [address]Dr. Garima Pulliam PLT 222 103/ul Normal 150-450 [facility] Comment on above: Performed By: #### C BC ####[facility] Vxulzqdjod[address] [place], [place] [address]Dr. Garima Pulliam RBC 4.73 106/ul Normal 4.70-6.10 [facility] Comment on above: Performed By: #### C BC ####[facility] Vumaykvwyz07[address] [place], [place] [address]Dr. Garima Pulliam WBC 10.3 103/ul Normal 4.0-11.0 [facility] Comment on above: Performed By: #### C BC ####[facility] Zdqyhdnfke[address] [place], [place] [address]Dr. Garima Pulliam PROF 14(COMP METB)on 023 Albumin [Mass/Vol] 3.7 g/dL Normal 3.4-5.0 [facility] Comment on above: Performed By: #### C MP, HSTROPN, BNP ####[facility] Txwsyzrcmd6259 [place] [address]Dr. Garima Pulliam Albumin/Globulin [Mass ratio] 1.5 {ratio} Normal [facility] Comment on above: Performed By: #### C MP, HSTROPN, BNP ####[facility] Cdplzhxwub6901 [place] [address]Dr. Garima Pulliam ALP [Catalytic activity/Vol] 79 U/L Normal 46-116 [facility] Comment on above: Performed By: #### C MP, HSTROPN, BNP ####[facility] Iyenzpshrp1461 [place] [address]Dr. Garima Pulliam ALT [Catalytic activity/Vol] 32 U/L Normal 16-63 [facility] Comment on above: Performed By: #### C MP, HSTROPN, BNP ####[facility] Ayrvrziqxi1874 [place] [address]Dr. Garima Pulliam Anion gap [Moles/Vol] 9.5 mmol/L Normal [facility] Comment on above: Performed By: #### C MP, HSTROPN, BNP ####[facility] Jaxlktihth9[address] [place], [place] [address]Dr. Garima Pulliam AST [Catalytic activity/Vol] 25 U/L Normal 15-37 [facility] Comment on above: Performed By: #### C MP, HSTROPN, BNP ####[facility] Rmnvrxdign0[address] [place], [place] [address]Dr. Garima Pulliam Bilirubin [Mass/Vol] 0.4 mg/dL Normal 0.2-1.0 [facility] Comment on above: Performed By: #### C MP, HSTROPN, BNP ####[facility] Bbepshrxca[address] [place], [place] [address]Dr. Garima Pulliam Calcium [Mass/Vol] 8.9 mg/dL Normal 8.5-10.1 [facility] Comment on above: Performed By: #### C MP, HSTROPN, BNP ####[facility] Xewsftjhkt[address] [place], [place] [address]Dr. Garima Pulliam Chloride [Moles/Vol] 103 mmol/L Normal 98-107 [facility] Comment on above: Performed By: #### C MP, HSTROPN, BNP ####[facility] Blkovwxdvu[address] [place], [place] [address]Dr. Garima Pulliam CO2 [Moles/Vol] 28.6 mmol/L Normal 21.0-32.0 [facility] Comment on above: Performed By: #### C MP, HSTROPN, BNP ####[facility] Fuftuutisb2962 [place] [address]Dr. Garima Pulliam Creatinine [Mass/Vol] 0.72 mg/dL Normal 0.70-1.30 [facility] Comment on above: Performed By: #### C MP, HSTROPN, BNP ####[facility] Kaxbplkajh8547 [place] [id number]. Garima Pulliam EGFR-AF LEBANESE >60 Normal >=60 [facility] Comment on above: Performed By: #### C MP, HSTROPN, BNP ####[facility] [facility] [address]cskgyjjdq[address] [place] [address]Dr. Garima Pulliam EGFR-NON AF LEBANESE >60 Normal >=60 [facility] Comment on above: Performed By: #### C MP, HSTROPN, BNP ####[facility] Mpgetccymz[address] [place] [address]Dr. Garima Pulliam Globulin (S) [Mass/Vol] 2.5 g/dL Normal [facility] Comment on above: Performed By: #### C MP, HSTROPN, BNP ####[facility] Nssmt[address] [place], [place] [address]Dr. Garima Pulliam Glucose [Mass/Vol] 114 mg/dL Critically high 74-106 T [facility] Comment on above: Performed By: #### C MP, HSTROPN, BNP ####[facility] Amyoknvvkz[address] [place] [address]Dr. Garima Pulliam Potassium [Moles/Vol] 4.1 mmol/L Normal 3.5-5.1 [facility] Comment on above: Performed By: #### C MP, HSTROPN, BNP ####[facility] Hhjpdtfqfx40[address] [place] [address]Dr. Garima Pulliam Protein [Mass/Vol] 6.2 g/dL Critically low 6.4-8.2 Th [facility] Comment on above: Performed By: #### C MP, HSTROPN, BNP ####[facility] Upkuudmjad[address] [place], [place] [address]Dr. Garima Pulliam Sodium [Moles/Vol] 137 mmol/L Normal 136-145 [facility] Comment on above: Performed By: #### C MP, HSTROPN, BNP ####[facility] Faowissdyi[address] [place] [address]Dr. Garima Pulliam Urea nitrogen [Mass/Vol] 13.0 mg/dL Normal 7.0-18.0 [facility] Comment on above: Performed By: #### C MP, HSTROPN, BNP ####[facility] Juqjoarvrw[address] [place] [address]Dr. Garima Pulliam Urea nitrogen/Creatinine [Mass ratio] 18.1 mg/mg Normal [facility] Comment on above: Performed By: #### C MP, HSTROPN, BNP ####[facility] Mfcgmpdrej4[address] [place] [address]Dr. Garima Pulliam TROPONIN, HIGH SENSITIVITYon 11-27-2022 HSTROP 11.8 pg/mL Normal 4.0-76.1 [facility] Comment on above: Result Comment: CUT- OFF POINTS HAVE BEEN ESTABLISHED BASED ON THE FOURTH UNIVERSAL DEFINITIONS OF MYOCARDIALINFARCTION. THE UPPER REFERENCE LIMIT (URL) OF TROPONIN, DEFINED THE 99TH PERCENTILE OFcTnI DISTRIBUTION IN A REFERENCE POPULATION, HAS BEEN CONFIRMED THE DECISION THRESHOLDFOR MS DIAGNOSIS. Performed By: #### C MP, HSTROPN, BNP ####[facility] Kqzbqjorgy[address] [place], [place] [address]Dr. Garima Pulliam XR CHEST 1 Von 11-27-2022 XR CHEST 1 V Normal [facility] BNPon 11-20-2022 Natriuretic peptide B (Bld) [Mass/Vol] 73.0 pg/mL Normal <=900.0 [facility] Comment on above: Performed By: #### B MP, HSTROPN, BNP ####[facility] Ibdmddcboj[address] [place], [place] [address]Dr. Garima Pulliam CBC AUTO DIFFon 11-20-2022 BASO # 0.0 103/ul Normal 0.0-0.1 [facility] Comment on above: Performed By: #### C BC ####[facility] Ldw[address] [place] [address]. Garima Pulliam Basophils/100 WBC (Bld) 0.3 % Normal 0.2-2.0 [facility] Comment on above: Performed By: #### C BC ####[facility] Oudbffymzh[address] [place] [address]Dr. Garima Pulliam EO # 0.2 103/ul Normal 0.0-0.7 [facility] Comment on above: Performed By: #### C BC ####[facility] Gffqwliyaj[address] [place], [place] [address]Dr. Garima Pulliam Eosinophils/100 WBC (Bld) 2.1 % Normal 0.9-7.0 The [facility] Comment on above: Performed By: #### C BC ####[facility] Uxgvjsurjn39[address] [place], [place] [address]Dr. Garima Pulliam Erythrocyte distribution width (RBC) [Ratio] 13.2 % Normal 11.0-15.0 The [facility] Comment on above: Performed By: #### C BC ####[facility] Jeglstauss[address] [place], [place] [address]Dr. Garima Pulliam Hematocrit (Bld) [Volume fraction] 43.4 % Normal 42.0-54.0 [facility] Comment on above: Performed By: #### C BC ####[facility] Tratahtlnz[address] [place], [place] [address]Dr. Garima Pulliam Hemoglobin (Bld) [Mass/Vol] 14.6 g/dL Normal 14.0-18.0 The [facility] Comment on above: Performed By: #### C BC ####[facility] Tgqnuaknac[address] [place], [place] [address]Dr. Garima Pulliam IG # 0.02 10e3/ul Normal 0.00-0.03 [facility] Comment on above: Performed By: #### C BC ####[facility] Dfgcmpzpfq25[address] [place], [place] [address]Dr. Garima Pulliam IG % 0.2 % Normal 0.0-0.5 [facility] Comment on above: Performed By: #### C BC ####[facility] Mumnmdgjfz[address] [place] [id number]. Garima Heraclio LYMPH # 2.1 103/ul Normal 1.2-3.8 [facility] Comment on above: Performed By: #### C BC ####[facility] Jboedbyifw29[address] [place] [address]Dr. Garima Pulliam Lymphocytes/100 WBC (Bld) 19.2 % Critically low 20.5-60.0 The [facility] Comment on above: Performed By: #### C BC ####[facility] Epejqfzggq47[address] [place] [address]Dr. Garima Pulliam MANUAL DIFF REQ NO Normal [facility] Comment on above: Performed By: #### C BC ####[facility] Ktijyjdsjt21[address] [place] [address]Dr. Garima Pulliam MCH (RBC) [Entitic mass] 30.4 pg Normal 25.9-34.0 [facility] Comment on above: Performed By: #### C BC ####[facility] Nfsqzvywln[address] [place], [place] [address]Dr. Garima Pulliam MCHC (RBC) [Mass/Vol] 33.6 g/dL Normal 29.9-35.2 [facility] Comment on above: Performed By: #### C BC ####[facility] Oaceuyydyw[address] [place] [address]Dr. Garima Pulliam MCV (RBC) [Entitic vol] 90.4 fL Normal 80.0-94.0 [facility] Comment on above: Performed By: #### C BC ####[facility] Upgejfjcrx[address] [place], [place] [address]Dr. Garima Pulliam MONO # 0.6 103/ul Normal 0.3-0.8 [facility] Comment on above: Performed By: #### C BC ####[facility] Rdejalazjo[address] [place], [place] [address]Dr. Garima Pulliam Monocytes/100 WBC (Bld) 5.8 % Normal 1.7-12.0 The [facility] Comment on above: Performed By: #### C BC ####[facility] [address] [place] [address]Fa. Garima Pulliam NEUT # 7.8 103/ul Critically high 1.4-6.5 [facility] Comment on above: Performed By: #### C BC ####[facility] Rvtwkxuaij13[address] [place] [id number]. Garima Pulliam Neutrophils/100 WBC (Bld) 72.4 % Normal 43.0-75.0 [facility] Comment on above: Performed By: #### C BC ####[facility] Aagynkorwx6[address] [place] [id number]. Garima Pulliam Platelet mean volume (Bld) [Entitic vol] 8.7 fL Critically low 9.5-13.5 [facility] Comment on above: Performed By: #### C BC ####[facility] Eicmrngwji[address] [place] [id number]. Garima Pulliam PLT 184 103/ul Normal 150-450 [facility] Comment on above: Performed By: #### C BC ####[facility] Xbjxwauprt5987 [place] [id number]. Garima Pulliam RBC 4.80 106/ul Normal 4.70-6.10 [facility] Comment on above: Performed By: #### C BC ####[facility] Bfnigibmpx89[address] [place] [id number]. Garima Pulliam WBC 10.8 103/ul Normal 4.0-11.0 [facility] Comment on above: Performed By: #### C BC ####[facility] Lculjlxaky7[address] [place] [address]Dr. Garima Pulliam [facility]24 SARS-CoV-2 (COVID-19) RNA MARIE+probe Ql (Unsp spec) Not detected Normal NOT DETECTED [facility] Comment on above: Result Comment: When diagnostic [...] for this test is supported by the Sustainability Coach of Health and Human Service's declaration that [...] used). Performed By: #### C VDTBH ####[facility] [address]be[address]spzby[address] [place], [place] [address]Dr. Garima Pulliam INFLUENZA A AND B AGon 11-20 INFLUANE SEE BELOW Normal [facility] Comment on above: Result Comment: Nega tive for Flu A protein angiten. Infection due to Flu A cannot be ruled out. Flu A angiten in the sample may be below the detection limit of the test. Performed By: #### I NFLUAB ####[facility] Uyhxfonahl[address] [place], [place] [address]Dr. Garima Pulliam INFLUBNEGH SEE BELOW Normal [facility] Comment on above: Result Comment: Nega tive for Flu B protein antigen. Infection due to Flu B cannot be ruled out. Flu B antigen in the sample may be below the detection limit of the test. Performed By: #### I NFLUAB ####[facility] Cdmpompxrt[address] [place], [place] [address]Dr. Garima Pulliam INFLUENZA A AG Negative Normal NEGATIVE SEE COMMENT [facility] Comment on above: Performed By: #### I NFLUAB ####[facility] Ofebyoracl[address] [place], [place] [address]Dr. Garima Pulliam INFLUENZA B AG Negative Normal NEGATIVE SEE COMMENT [facility] Comment on above: Performed By: #### I NFLUAB ####[facility] Vwmrpktsyg9[address] [place], [place] [address]Dr. Garima Pulliam PROF CHEM 8 (BAS METB)on Anion gap [Moles/Vol] 8.2 mmol/L Normal [facility] Comment on above: Performed By: #### B MP, HSTROPN, BNP ####[facility] Uyjqkklxzr39[address] [place] [address]Dr. Garima Pulliam Calcium [Mass/Vol] 8.7 mg/dL Normal 8.5-10.1 [facility] Comment on above: Performed By: #### B MP, HSTROPN, BNP ####[facility] Boiywktyxg7[address] [place] [address]Dr. Garima Pulliam Chloride [Moles/Vol] 103 mmol/L Normal 98-107 [facility] Comment on above: Performed By: #### B MP, HSTROPN, BNP ####[facility] Yrybhjovog0[address] [place] [address]Dr. Garima Pulliam CO2 [Moles/Vol] 29.4 mmol/L Normal 21.0-32.0 The [facility] Comment on above: Performed By: #### B MP, HSTROPN, BNP ####[facility] Piofbanpwx[address] [place], [place] [address]Dr. Garima Pulliam Creatinine [Mass/Vol] 0.69 mg/dL Critically low 0.70-1.30 [facility] Comment on above: Performed By: #### B MP, HSTROPN, BNP ####[facility] Hfuylghqib364[address] [place] [address]Dr. Garima Pulliam EGFR-AF LEBANESE >60 Normal >=60 [facility] Comment on above: Performed By: #### B MP, HSTROPN, BNP ####[facility] Yruujafmrp32[address] [place] [address]Dr. Garima Pulliam EGFR-NON AF LEBANESE >60 Normal >=60 [facility] Comment on above: Performed By: #### B MP, HSTROPN, BNP ####[facility] Lwokdhgzfw7[address] [place] [address]Dr. Garima Pulliam Glucose [Mass/Vol] 209 mg/dL Critically high 74-106 [facility] Comment on above: Performed By: #### B MP, HSTROPN, BNP ####[facility] Okngbjulmr2975 [place] [address]Dr. Garima Pulliam Potassium [Moles/Vol] 3.6 mmol/L Normal 3.5-5.1 [facility] Comment on above: Performed By: #### B MP, HSTROPN, BNP ####[facility] Lnwyscsamd53[address] [place] [address]Dr. Garima Pulliam Sodium [Moles/Vol] 137 mmol/L Normal 136-145 [facility] Comment on above: Performed By: #### B MP, HSTROPN, BNP ####[facility] Pekqvfbowf9[address] [place] [address]Dr. Garima Pulliam Urea nitrogen [Mass/Vol] 11.0 mg/dL Normal 7.0-18.0 [facility] Comment on above: Performed By: #### B MP, HSTROPN, BNP ####[facility] Ngbsynbthn9[address] [place] [address]Dr. Garima Pulliam Urea nitrogen/Creatinine [Mass ratio] 15.9 mg/mg Normal [facility] Comment on above: Performed By: #### B MP, HSTROPN, BNP ####[facility] Ilimukrkfq6[address] [place] [address]Dr. Garima Pulliam TROPONIN, HIGH SENSITIVITYon 11-20-2022 HSTROP 8.7 pg/mL Normal 4.0-76.1 [facility] Comment on above: Result Comment: CUT- OFF POINTS HAVE BEEN ESTABLISHED BASED ON THE FOURTH UNIVERSAL DEFINITIONS OF MYOCARDIALINFARCTION. THE UPPER REFERENCE LIMIT (URL) OF TROPONIN, DEFINED THE 99TH PERCENTILE OFcTnI DISTRIBUTION IN A REFERENCE POPULATION, HAS BEEN CONFIRMED THE DECISION THRESHOLDFOR MS DIAGNOSIS. Performed By: #### B MP, HSTROPN, BNP ####[facility] Phhuutlulg[address] [place], [place] [address]Dr. Garima Pulliam XR CHEST 1 Von 11-20-2022 XR CHEST 1 V Normal [facility] XR CHEST 1 Von 10-02-2022 XR CHEST 1 V Normal [facility] BNPon 09-29-2022 Natriuretic peptide B (Bld) [Mass/Vol] 107.0 pg/mL Normal <=900.0 [facility] Comment on above: Performed By: #### C MP, BNP, CMADM ####[facility] Khntvcnarz3[address] [place] [address]Dr. Garima Heraclio CARDIAC NASH ADMITon 022 CK [Catalytic activity/Vol] 190 U/L Normal 39-308 [facility] Comment on above: Performed By: #### C MP, BNP, CMADM ####[facility] Tpytpdeglk6[address] [place] [address]Dr. Garima Pulliam CK.MB [Mass/Vol] 11.11 ng/mL Critically high <=3.60 Th e [facility] Comment on above: Performed By: #### C MP, BNP, CMADM ####[facility] Ougrhukzvi96[address] [place] [address]Dr. Garima Heraclio HSTROP 11.8 pg/mL Normal 4.0-76.1 [facility] Comment on above: Result Comment: CUT- OFF POINTS HAVE BEEN ESTABLISHED BASED ON THE FOURTH UNIVERSAL DEFINITIONS OF MYOCARDIALINFARCTION. THE UPPER REFERENCE LIMIT (URL) OF TROPONIN, DEFINED THE 99TH PERCENTILE OFcTnI DISTRIBUTION IN A REFERENCE POPULATION, HAS BEEN CONFIRMED THE DECISION THRESHOLDFOR MS DIAGNOSIS. Performed By: #### C MP, BNP, CMADM ####[facility] Xbjyqlirud1748 [place] [address]Dr. Garima Pulliam DORIS 133 ng/mL Critically high 16-96 [facility] Comment on above: Performed By: #### C MP, BNP, CMADM ####[facility] Jviinsxqnc3594 [place] [address]Dr. Garima Pulliam CBC AUTO DIFFon 09-29-2022 BASO # 0.0 103/ul Normal 0.0-0.1 [facility] Comment on above: Performed By: #### C BC ####[facility] Trihhatkeg88[address] [place] [address]Dr. Garima Pulliam Basophils/100 WBC (Bld) 0.2 % Normal 0.2-2.0 [facility] Comment on above: Performed By: #### C BC ####[facility] Ubljcyavbq0496 [place] [id number]. Garima Pulliam EO # 0.1 103/ul Normal 0.0-0.7 [facility] Comment on above: Performed By: #### C BC ####[facility] Qxgknycrvu3120 [place] [address]Dr. Garima Pulliam Eosinophils/100 WBC (Bld) 1.4 % Normal 0.9-7.0 [facility] Comment on above: Performed By: #### C BC ####[facility] Wqegvysuza[address] [place], [place] [address]Dr. Garima Pulliam Erythrocyte distribution width (RBC) [Ratio] 13.7 % Normal 11.0-15.0 [facility] Comment on above: Performed By: #### C BC ####[facility] Teqfbjpvxh[address] [place], [place] [address]Dr. Gariam Pulliam Hematocrit (Bld) [Volume fraction] 45.4 % Normal 42.0-54.0 [facility] Comment on above: Performed By: #### C BC ####[facility] Iodxvpujgt[address] [place], [place] [address]Dr. Garima Pulliam Hemoglobin (Bld) [Mass/Vol] 14.8 g/dL Normal 14.0-18.0 [facility] Comment on above: Performed By: #### C BC ####[facility] Sxswptpeyk79[address] [place] [address]Dr. Garima Pulliam IG # 0.04 10e3/ul Critically high 0.00-0.03 [facility] Comment on above: Performed By: #### C BC ####[facility] Rpdtzpnnpd[address] [place], [place] [address]Dr. Garima Pulliam IG % 0.5 % Normal 0.0-0.5 [facility] Comment on above: Performed By: #### C BC ####[facility] Yzaoikgttt[address] [place], [place] [address]Dr. Garima Pulliam LYMPH # 1.1 103/ul Critically low 1.2-3.8 [facility] Comment on above: Performed By: #### C BC ####[facility] Nxxitbxeur7596 [place] [id number]. Garima Pulliam Lymphocytes/100 WBC (Bld) 12.7 % Critically low 20.5-60.0 [facility] Comment on above: Performed By: #### C BC ####[facility] Tlmvalexns3092 [place] [id number]. Garima Heraclio MANUAL DIFF REQ NO Normal [facility] Comment on above: Performed By: #### C BC ####[facility] Nvjyjyrfqj5209 [place] [id number]. Garima Heraclio MCH (RBC) [Entitic mass] 30.0 pg Normal 25.9-34.0 [facility] Comment on above: Performed By: #### C BC ####[facility] Jwsitpaumj0623 [place] [address]Dr. Garima Heraclio MCHC (RBC) [Mass/Vol] 32.6 g/dL Normal 29.9-35.2 [facility] Comment on above: Performed By: #### C BC ####[facility] Vcnozfophe9738 [place] [id number]. Garima Heraclio MCV (RBC) [Entitic vol] 91.9 fL Normal 80.0-94.0 [facility] Comment on above: Performed By: #### C BC ####[facility] Gngtmaltnd9[address] [place] [address]Dr. Chapisrenu Heraclio MONO # 0.4 103/ul Normal 0.3-0.8 [facility] Comment on above: Performed By: #### C BC ####[facility] Uynkswgqlb2279 [place] [id number]. Garima Heraclio Monocytes/100 WBC (Bld) 4.8 % Normal 1.7-12.0 [facility] Comment on above: Performed By: #### C BC ####[facility] Hbliqfxwkv[address] [place], [place] [address]Dr. Garima Pulliam NEUT # 7.1 103/ul Critically high 1.4-6.5 [facility] Comment on above: Performed By: #### C BC ####[facility] Sfobymnirh7864 [place] [id number]. Garima Pulliam Neutrophils/100 WBC (Bld) 80.4 % Critically high 43.0-75.0 [facility] Comment on above: Performed By: #### C BC ####[facility] Cmndjrszhs0971 [place] [id number]. Garima Pulliam Platelet mean volume (Bld) [Entitic vol] 9.1 fL Critically low 9.5-13.5 [facility] Comment on above: Performed By: #### C BC ####[facility] Nknwwbsswg4947 [place] [id number]. Garima Pulliam PLT 200 103/ul Normal 150-450 [facility] Comment on above: Performed By: #### C BC ####[facility] Vsdrqwpjvo8276 [place] [phone]. Garima Pulliam RBC 4.94 106/ul Normal 4.70-6.10 [facility] Comment on above: Performed By: #### C BC ####[facility] Dtzwcutsgv6156 [place] [id number]. Garima Pulliam WBC 8.9 103/ul Normal 4.0-11.0 [facility] Comment on above: Performed By: #### C BC ####[facility] Vgnepxkkdv8181 [place] [id number]. Garima Pulliam [facility]on SARS-CoV-2 (COVID-19) RNA MARIE+probe Ql (Unsp spec) Not detected Normal NOT DETECTED [facility] Comment on above: Result Comment: When diagnostic [...] for this test is supported by the Sustainability Coach of Health and Human Service's declaration that [...] used). Performed By: #### C VDTBH ####[facility] Xryjihpfgi13[address] [place] [address]Dr. Garima Pulliam LACTATE/LACTIC ACIDon 2021 Lactate [Moles/Vol] 1.7 mmol/L Normal 0.4-1.9 [facility] Comment on above: Performed By: #### L ACT ####[facility] [address]mbu[address] [place], [place] [address]Dr. Garima Pulliam PROF 14(COMP METB)on 022 Albumin [Mass/Vol] 3.8 g/dL Normal 3.4-5.0 [facility] Comment on above: Performed By: #### C MP, BNP, CMADM ####[facility] Cgxskyazmt7529 [place] [address]Dr. Garima Pulliam Albumin/Globulin [Mass ratio] 1.5 {ratio} Normal [facility] Comment on above: Performed By: #### C MP, BNP, CMADM ####[facility] Wfqlgfinxn3015 [place] [address]Dr. Garima Pulliam ALP [Catalytic activity/Vol] 62 U/L Normal 46-116 [facility] Comment on above: Performed By: #### C MP, BNP, CMADM ####[facility] Cqodchqros2225 [place] [address]Dr. Garima Pulliam ALT [Catalytic activity/Vol] 37 U/L Normal 16-63 [facility] Comment on above: Performed By: #### C MP, BNP, CMADM ####[facility] Owmqmdnxtz4665 [place] [address]Dr. Garima Pulliam Anion gap [Moles/Vol] 8.0 mmol/L Normal [facility] Comment on above: Performed By: #### C MP, BNP, CMADM ####[facility] Qkvmsljvjg6701 [place] [address]Dr. Garima Pulliam AST [Catalytic activity/Vol] 20 U/L Normal 15-37 [facility] Comment on above: Performed By: #### C MP, BNP, CMADM ####[facility] Gfzkmksrdi7216 [place] [address]Dr. Garima Pulliam Bilirubin [Mass/Vol] 0.6 mg/dL Normal 0.2-1.0 [facility] Comment on above: Performed By: #### C MP, BNP, CMADM ####[facility] Vxgrkxslfa0492 [place] [address]Dr. Garima Pulliam Calcium [Mass/Vol] 9.1 mg/dL Normal 8.5-10.1 [facility] Comment on above: Performed By: #### C MP, BNP, CMADM ####[facility] Mevyhcqibj[address] [place], [place] [address]Dr. Garima Pulliam Chloride [Moles/Vol] 103 mmol/L Normal 98-107 [facility] Comment on above: Performed By: #### C MP, BNP, CMADM ####[facility] Tnantbkqca[address] [place], [place] [address]Dr. Garima Pulliam CO2 [Moles/Vol] 31.8 mmol/L Normal 21.0-32.0 [facility] Comment on above: Performed By: #### C MP, BNP, CMADM ####[facility] [address]zzvkywbk[address] [place], [place] [address]Dr. Garima Pulliam Creatinine [Mass/Vol] 0.63 mg/dL Critically low 0.70-1.30 [facility] Comment on above: Performed By: #### C MP, BNP, CMADM ####[facility] [address]kbyuwn[address] [place], [place] [address]Dr. Garima Pulliam EGFR-AF LEBANESE >60 Normal >=60 [facility] Comment on above: Performed By: #### C MP, BNP, CMADM ####[facility] Mmcafnofgw[address] [place], [place] [address]Dr. Yilan Pulliam EGFR-NON AF LEBANESE >60 Normal >=60 [facility] Comment on above: Performed By: #### C MP, BNP, CMADM ####[facility] Mybjpagpgd9123 [place] [address]Dr. Garima Pulliam Globulin (S) [Mass/Vol] 2.6 g/dL Normal [facility] Comment on above: Performed By: #### C MP, BNP, CMADM ####[facility] Yhbovavqfr2075 [place] [address]Dr. Garima Pulliam Glucose [Mass/Vol] 103 mg/dL Normal 74-106 [facility] Comment on above: Performed By: #### C MP, BNP, CMADM ####[facility] Iltcypyhra9273 [place] [address]Dr. Garima Pulliam Potassium [Moles/Vol] 3.8 mmol/L Normal 3.5-5.1 [facility] Comment on above: Performed By: #### C MP, BNP, CMADM ####[facility] Buyakgbkyw4767 [place] [address]Dr. Garima Pulliam Protein [Mass/Vol] 6.4 g/dL Normal 6.4-8.2 [facility] Comment on above: Performed By: #### C MP, BNP, CMADM ####[facility] [address]mbqxuqrx8[address] [place] [address]Dr. Garima Pulliam Sodium [Moles/Vol] 139 mmol/L Normal 136-145 [facility] Comment on above: Performed By: #### C MP, BNP, CMADM ####[facility] Nsxmotkzmf2386 [place] [address]Dr. Garima Pulliam Urea nitrogen [Mass/Vol] 7.0 mg/dL Normal 7.0-18.0 [facility] Comment on above: Performed By: #### C MP, BNP, CMADM ####[facility] Ozypcvqtfe5961 [place] [address]Dr. Garima Pulliam Urea nitrogen/Creatinine [Mass ratio] 11.1 mg/mg Normal [facility] Comment on above: Performed By: #### C MP, BNP, CMADM ####[facility] Xqxssnqbgb1010 [place] [address]Dr. Garima Pulliam PROTIMEon 09-29-2022 INR Coag (PPP) [Relative time] 1.14 {INR} Normal [facility] Comment on above: Performed By: #### P T, PTT ####[facility] Fkxocyqnzl6513 [place] [address]Dr. Garima Pulliam INR GUIDELINES SEE BELOW Normal [facility] Comment on above: Result Comment: WESLEY RED INR: 2.0 - 3.0 CONDITIONS NOT LISTED BELOW 2.5 - 3.5 FOR PROSTHETIC HEART VALVE REPLACEMENT 2.5 - 3.5 RECURRENT THROMBOSIS Performed By: #### P T, PTT ####[facility] [address]twknqaeaz[address] [place], [place] [address]Dr. Garima Pulliam PT Coag (PPP) [Time] 12.2 s Critically high 9.0-11.6 [facility] Comment on above: Performed By: #### P T, PTT ####[facility] Dergzdgtap[address] [place], [place] [address]Dr. Garima Pulliam PTTon 09-29-2022 aPTT Coag (Bld) [Time] 29.3 s Normal 22.3-36.2 [facility] Comment on above: Performed By: #### P T, PTT ####[facility] Vnjcmefqet55[address] [place], [place] [address]Dr. Garima Pulliam XR CHEST 1 Von 09-29-2022 XR CHEST 1 V Normal [facility] CBC AUTO DIFFon 09-26-2022 BASO # 0.0 103/ul Normal 0.0-0.1 [facility] Comment on above: Performed By: #### C BC ####[facility] Eefzbmpjsn35[address] [place], [place] [address]Dr. Garima Pulliam Basophils/100 WBC (Bld) 0.2 % Normal 0.2-2.0 [facility] Comment on above: Performed By: #### C BC ####[facility] Jgnjdatlet74[address] [place], [place] [address]Dr. Garima Pulliam EO # 0.1 103/ul Normal 0.0-0.7 [facility] Comment on above: Performed By: #### C BC ####[facility] Pjcuufhkkx7439 [place] [address]Dr. Garima Pulliam Eosinophils/100 WBC (Bld) 1.0 % Normal 0.9-7.0 [facility] Comment on above: Performed By: #### C BC ####[facility] Xjdkegvjjx34[address] [place], [place] [address]Dr. Garima Pulliam Erythrocyte distribution width (RBC) [Ratio] 13.4 % Normal 11.0-15.0 [facility] Comment on above: Performed By: #### C BC ####[facility] Ojmhgrsmpb85[address] [place], [place] [address]Dr. Garima Pulliam Hematocrit (Bld) [Volume fraction] 46.3 % Normal 42.0-54.0 [facility] Comment on above: Performed By: #### C BC ####[facility] Ieddkcnksg33[address] [place], [place] [address]Dr. Garima Pulliam Hemoglobin (Bld) [Mass/Vol] 15.3 g/dL Normal 14.0-18.0 [facility] Comment on above: Performed By: #### C BC ####[facility] Ffzdatydek76[address] [place], [place] [address]Dr. Garima Pulliam IG # 0.05 10e3/ul Critically high 0.00-0.03 [facility] Comment on above: Performed By: #### C BC ####[facility] Ftbygiajlf4[address] [place], [place] [address]Dr. Garima Pulliam IG % 0.4 % Normal 0.0-0.5 [facility] Comment on above: Performed By: #### C BC ####[facility] Ehyapnioki99[address] [place], [place] [address]DrAdalberto Garima Heraclio LYMPH # 1.7 103/ul Normal 1.2-3.8 [facility] Comment on above: Performed By: #### C BC ####[facility] Wxzpxonrbe1878[address] [place], [place] [address]Dr. Garima Heraclio Lymphocytes/100 WBC (Bld) 12.7 % Critically low 20.5-60.0 [facility] Comment on above: Performed By: #### C BC ####[facility] Flcfebfode0720 [place] [address]DrAdalberto Pulliam MANUAL DIFF REQ NO Normal [facility] Comment on above: Performed By: #### C BC ####[facility] Ilwusknqdb8790 [place] [address]Dr. Garima Pulliam MCH (RBC) [Entitic mass] 30.1 pg Normal 25.9-34.0 [facility] Comment on above: Performed By: #### C BC ####[facility] Kxtekfbmhk9055[address] [place], [place] [address]Dr. Garima Pulliam MCHC (RBC) [Mass/Vol] 33.0 g/dL Normal 29.9-35.2 [facility] Comment on above: Performed By: #### C BC ####[facility] Hdktbxriki9755[address] [place], [place] [address]DrAdalberto Pulliam MCV (RBC) [Entitic vol] 91.1 fL Normal 80.0-94.0 [facility] Comment on above: Performed By: #### C BC ####[facility] Hqubfxdglw1464[address] [place], [place] [address]DrAdalberto Pulliam MONO # 0.9 103/ul Critically high 0.3-0.8 [facility] Comment on above: Performed By: #### C BC ####[facility] Telqobhtxd1649[address] [place], [place] [address]DrAdalberto Pulliam Monocytes/100 WBC (Bld) 7.0 % Normal 1.7-12.0 [facility] Comment on above: Performed By: #### C BC ####[facility] Spaexnhals1926[address] [place], [place] [address]DrAdalberto Pulliam NEUT # 10.4 103/ul Critically high 1.4-6.5 [facility] Comment on above: Performed By: #### C BC ####[facility] Xejfriapub4547[address] [place], [place] [address]DrAdalberto Pulliam Neutrophils/100 WBC (Bld) 78.7 % Critically high 43.0-75.0 [facility] Comment on above: Performed By: #### C BC ####[facility] Ensdhxzvfe8556 [place] [address]DrAdalberto Pulliam Platelet mean volume (Bld) [Entitic vol] 8.9 fL Critically low 9.5-13.5 [facility] Comment on above: Performed By: #### C BC ####[facility] Psqwqmfgci5169 [place] [address]Dr. Garima Pullaim PLT 195 103/ul Normal 150-450 [facility] Comment on above: Performed By: #### C BC ####[facility] Onuqitaoih5398[address] [place], [place] [address]Dr. Garima Pulliam RBC 5.08 106/ul Normal 4.70-6.10 [facility] Comment on above: Performed By: #### C BC ####[facility] Wzyzfdclcr8573 [place] [address]DrAdalberto Pulliam WBC 13.2 103/ul Critically high 4.0-11.0 [facility] Comment on above: Performed By: #### C BC ####[facility] Qegayprcvq[address] [place], [place] [address]DrAdalberto Pulliam PROF 14(COMP METB)on 022 Albumin [Mass/Vol] 3.5 g/dL Normal 3.4-5.0 [facility] Comment on above: Performed By: #### C DAVID HSTROPN ####[facility] Rmctjemhem9164 [place] [address]DrAdalberto Pulliam Albumin/Globulin [Mass ratio] 1.2 {ratio} Normal [facility] Comment on above: Performed By: #### C RAFAT HERNANDEZTROPN ####[facility] Zrgxdqtfna6035 [place] [address]DrAdalberto Pulliam ALP [Catalytic activity/Vol] 71 U/L Normal 46-116 [facility] Comment on above: Performed By: #### C RAFAT HERNANDEZTROPN ####[facility] Hnbvkhvopx4[address] [place], [place] [address]Dr. Garima Pulliam ALT [Catalytic activity/Vol] 37 U/L Normal 16-63 [facility] Comment on above: Performed By: #### C DAVID, HSTROPN ####[facility] Kcrmhdgeog9781 [place] [address]Dr. Garima Pulliam Anion gap [Moles/Vol] 4.8 mmol/L Normal [facility] Comment on above: Performed By: #### C DAVID, HSTROPN ####[facility] Afyyvkppmd8458 [place] [address]Dr. Garima Pulliam AST [Catalytic activity/Vol] 21 U/L Normal 15-37 [facility] Comment on above: Performed By: #### C DAVID, HSTROPN ####[facility] Bcfqhxnqzq5663 [place] [address]Dr. Garima Pulliam Bilirubin [Mass/Vol] 0.3 mg/dL Normal 0.2-1.0 [facility] Comment on above: Performed By: #### C DAVID, HSTROPN ####[facility] Tmaobifjog6[address] [place], [place] [address]Dr. Garima Pulliam Calcium [Mass/Vol] 8.9 mg/dL Normal 8.5-10.1 [facility] Comment on above: Performed By: #### C DAVID, HSTROPN ####[facility] Ggvurmxnlq8696 [place] [address]Dr. Garima Pulliam Chloride [Moles/Vol] 106 mmol/L Normal 98-107 [facility] Comment on above: Performed By: #### C DAVID, HSTROPN ####[facility] Pefwzjzkjc9005 [place] [address]Dr. Garima Pulliam CO2 [Moles/Vol] 29.8 mmol/L Normal 21.0-32.0 The [facility] Comment on above: Performed By: #### C DAVID, HSTROPN ####[facility] Uhncaodzhv9136 [place] [address]Dr. Garima Pulliam Creatinine [Mass/Vol] 0.68 mg/dL Critically low 0.70-1.30 [facility] Comment on above: Performed By: #### C MP, HSTROPN ####[facility] Dlvbgsbpqe8958 [place] [address]Dr. Chapislan Pulliam EGFR-AF LEBANESE >60 Normal >=60 [facility] Comment on above: Performed By: #### C MP, HSTROPN ####[facility] Pacpbszpom5168 [place] [address]Dr. Yirenu Pulliam EGFR-NON AF LEBANESE >60 Normal >=60 [facility] Comment on above: Performed By: #### C MP, HSTROPN ####[facility] Yywmawqibv3082 [place] [address]Dr. Garima Pulliam Globulin (S) [Mass/Vol] 2.8 g/dL Normal [facility] Comment on above: Performed By: #### C MP, HSTROPN ####[facility] Yrzqqoeonm4210 [place] [address]Dr. Chapisrenu Pulliam Glucose [Mass/Vol] 133 mg/dL Critically high 74-106 [facility] Comment on above: Performed By: #### C MP, HSTROPN ####[facility] Djhkabqanq0519 [place] [address]Dr. Chapisrenu Pulliam Potassium [Moles/Vol] 3.6 mmol/L Normal 3.5-5.1 [facility] Comment on above: Performed By: #### C MP, HSTROPN ####[facility] Pvtbekgfhu3879 [place] [address]Dr. Chapislan Pulliam Protein [Mass/Vol] 6.3 g/dL Critically low 6.4-8.2 [facility] Comment on above: Performed By: #### C MP, HSTROPN ####[facility] Tmhnxuigni6624 [place] [address]Dr. Garima Pulliam Sodium [Moles/Vol] 137 mmol/L Normal 136-145 [facility] Comment on above: Performed By: #### C MP, HSTROPN ####[facility] Cbyubhvlan4043 [place] [address]Dr. Yilan Pulliam Urea nitrogen [Mass/Vol] 15.0 mg/dL Normal 7.0-18.0 [facility] Comment on above: Performed By: #### C DAVID HSTROPN ####[facility] Uanhafazol3440 [place] [address]Dr. Chapisrenu Pulliam Urea nitrogen/Creatinine [Mass ratio] 22.1 mg/mg Normal [facility] Comment on above: Performed By: #### C DAVID HSTROPN ####[facility] Bweardpyxn8731 [place] [address]Dr. Chapisrenu Pulliam TROPONIN, HIGH SENSITIVITYon 09-26-2022 HSTROP 12.8 pg/mL Normal 4.0-76.1 [facility] Comment on above: Result Comment: CUT- OFF POINTS HAVE BEEN ESTABLISHED BASED ON THE FOURTH UNIVERSAL DEFINITIONS OF MYOCARDIALINFARCTION. THE UPPER REFERENCE LIMIT (URL) OF TROPONIN, DEFINED THE 99TH PERCENTILE OFcTnI DISTRIBUTION IN A REFERENCE POPULATION, HAS BEEN CONFIRMED THE DECISION THRESHOLDFOR MS DIAGNOSIS. Performed By: #### C DAVID HSTROPN ####[facility] Opxqqujqmm806[address] [place], [place] [address]Dr. Chapisrenu Pulliam XR CHEST 1 Von 09-26-2022 XR CHEST 1 V Normal [facility] XR CHEST 1 Von 09-16-2022 XR CHEST 1 V Normal [facility] CBC AUTO DIFFon 09-15-2022 BASO # 0.0 103/ul Normal 0.0-0.1 [facility] Comment on above: Performed By: #### C BC ####[facility] Lvouqosdth7913 [place] [address]Dr. Chapisrenu Pulliam Basophils/100 WBC (Bld) 0.1 % Critically low 0.2-2.0 [facility] Comment on above: Performed By: #### C BC ####[facility] Doohpzjtix1430 [place] [address]Dr. Garima Pulliam EO # 0.0 103/ul Normal 0.0-0.7 [facility] Comment on above: Performed By: #### C BC ####[facility] Gljhjzbagf2296 [place] [address]Dr. Garima Pulliam Eosinophils/100 WBC (Bld) 0.1 % Critically low 0.9-7.0 [facility] Comment on above: Performed By: #### C BC ####[facility] Xquebyzhmk8804 [place] [address]Dr. Garima Pulliam Erythrocyte distribution width (RBC) [Ratio] 14.1 % Normal 11.0-15.0 [facility] Comment on above: Performed By: #### C BC ####[facility] Htgcuasssz6[address] [place], [place] [address]Dr. Garima Pulliam Hematocrit (Bld) [Volume fraction] 46.1 % Normal 42.0-54.0 [facility] Comment on above: Performed By: #### C BC ####[facility] Atcazxrtgr7399[address] [place], [place] [address]Dr. Garima Pulliam Hemoglobin (Bld) [Mass/Vol] 15.0 g/dL Normal 14.0-18.0 [facility] Comment on above: Performed By: #### C BC ####[facility] Bosfvkdetv2262[address] [place], [place] [address]Dr. Garima Pulliam IG # 0.03 10e3/ul Normal 0.00-0.03 [facility] Comment on above: Performed By: #### C BC ####[facility] Uiqbtmitty3489[address] [place], [place] [address]Dr. Garima Pulliam IG % 0.3 % Normal 0.0-0.5 [facility] Comment on above: Performed By: #### C BC ####[facility] Oouoiodbqy5972 [place] [address]Dr. Garima Pulliam LYMPH # 0.6 103/ul Critically low 1.2-3.8 [facility] Comment on above: Performed By: #### C BC ####[facility] Ytcafsygqy2098[address] [place], [place] [address]Dr. Garima Pulliam Lymphocytes/100 WBC (Bld) 5.8 % Critically low 20.5-60.0 [facility] Comment on above: Performed By: #### C BC ####[facility] Blartmdycv3888 [place] [address]Dr. Garima Pulliam MANUAL DIFF REQ NO Normal [facility] Comment on above: Performed By: #### C BC ####[facility] Vxxqjaevdh1961 [place] [address]Dr. Garima Pulliam MCH (RBC) [Entitic mass] 30.2 pg Normal 25.9-34.0 [facility] Comment on above: Performed By: #### C BC ####[facility] Hsaulybjbx7257 [place] [address]Dr. Garima Pulliam MCHC (RBC) [Mass/Vol] 32.5 g/dL Normal 29.9-35.2 [facility] Comment on above: Performed By: #### C BC ####[facility] Maaztginym9409[address] [place], [place] [address]Dr. Garima Heraclio MCV (RBC) [Entitic vol] 92.8 fL Normal 80.0-94.0 [facility] Comment on above: Performed By: #### C BC ####[facility] Ejgtdvcleg8256[address] [place], [place] [address]Dr. Garima Heraclio MONO # 0.3 103/ul Normal 0.3-0.8 [facility] Comment on above: Performed By: #### C BC ####[facility] Zfoavbttbh0900 [place] [address]Dr. Chapisrenu Pulliam Monocytes/100 WBC (Bld) 3.2 % Normal 1.7-12.0 [facility] Comment on above: Performed By: #### C BC ####[facility] Enpubnomlq9232 [place] [address]Dr. Chapisrenu Pulliam NEUT # 9.8 103/ul Critically high 1.4-6.5 [facility] Comment on above: Performed By: #### C BC ####[facility] Qarqkvfzdx1560[address] [place], [place] [address]Dr. Garima Heraclio Neutrophils/100 WBC (Bld) 90.5 % Critically high 43.0-75.0 [facility] Comment on above: Performed By: #### C BC ####[facility] Gdzibkrzsj3265 [place] [address]Dr. Garima Pulliam Platelet mean volume (Bld) [Entitic vol] 9.4 fL Critically low 9.5-13.5 [facility] Comment on above: Performed By: #### C BC ####[facility] Rfkmsmdirl6190 [place] [address]Dr. Garima Pulliam PLT 208 103/ul Normal 150-450 [facility] Comment on above: Performed By: #### C BC ####[facility] Ilnozpvpmu0011 [place] [address]Dr. Garima Pulliam RBC 4.97 106/ul Normal 4.70-6.10 [facility] Comment on above: Performed By: #### C BC ####[facility] Vdtweleukp375[address] [place], [place] [address]Dr. Garima Pulliam WBC 10.8 103/ul Normal 4.0-11.0 [facility] Comment on above: Performed By: #### C BC ####[facility] Melhkzgjpv1067[address] [place], [place] [address]Dr. Garima Pulliam PROF 14(COMP METB)on 022 Albumin [Mass/Vol] 4.0 g/dL Normal 3.4-5.0 [facility] Comment on above: Performed By: #### C MP ####[facility] Hbmrxbllls3918[address] [place], [place] [address]Dr. Garima Pulliam Albumin/Globulin [Mass ratio] 1.5 {ratio} Normal [facility] Comment on above: Performed By: #### C MP ####[facility] Rjhmphcxyk6984 [place] [address]Dr. Garima Pulliam ALP [Catalytic activity/Vol] 73 U/L Normal 46-116 [facility] Comment on above: Performed By: #### C MP ####[facility] Wvuydeubfc[address] [place], [place] [address]Dr. Garima Pulliam ALT [Catalytic activity/Vol] 42 U/L Normal 16-63 [facility] Comment on above: Performed By: #### C MP ####[facility] Nkdcdoxely32[address] [place], [place] [address]Dr. Garima Pulliam Anion gap [Moles/Vol] 9.1 mmol/L Normal [facility] Comment on above: Performed By: #### C MP ####[facility] Teehesqwsz24[address] [place], [place] [address]Dr. Garima Pulliam AST [Catalytic activity/Vol] 28 U/L Normal 15-37 [facility] Comment on above: Performed By: #### C MP ####[facility] Lhphepamjg39[address] [place], [place] [address]Dr. Garima Pulliam Bilirubin [Mass/Vol] 0.6 mg/dL Normal 0.2-1.0 [facility] Comment on above: Performed By: #### C MP ####[facility] Gmqircnfpt4597[address] [place], [place] [address]Dr. Garima Pulliam Calcium [Mass/Vol] 8.6 mg/dL Normal 8.5-10.1 [facility] Comment on above: Performed By: #### C MP ####[facility] Jmvqebihtt0590[address] [place], [place] [address]Dr. Garima Pulliam Chloride [Moles/Vol] 105 mmol/L Normal 98-107 [facility] Comment on above: Performed By: #### C MP ####[facility] Vlkwvawznk9525[address] [place], [place] [address]Dr. Garima Pulliam CO2 [Moles/Vol] 28.5 mmol/L Normal 21.0-32.0 [facility] Comment on above: Performed By: #### C MP ####[facility] Ivsypmtxdl16[address] [place], [place] [address]Dr. Garima Pulliam Creatinine [Mass/Vol] 0.78 mg/dL Normal 0.70-1.30 [facility] Comment on above: Performed By: #### C MP ####[facility] Oncfdnqgjs6640[address] [place], [place] [address]Dr. Garima Heraclio EGFR-AF LEBANESE >60 Normal >=60 [facility] Comment on above: Performed By: #### C MP ####[facility] Cljimpczyz8044[address] [place], [place] [address]Dr. Garima Heraclio EGFR-NON AF LEBANESE >60 Normal >=60 [facility] Comment on above: Performed By: #### C MP ####[facility] Pcbxogqwkp1281 [place] [address]Dr. Garima Pulliam Globulin (S) [Mass/Vol] 2.7 g/dL Normal [facility] Comment on above: Performed By: #### C MP ####[facility] Qlknznsbcg7731 [place] [address]Dr. Garima Pulliam Glucose [Mass/Vol] 220 mg/dL Critically high 74-106 T [facility] Comment on above: Performed By: #### C MP ####[facility] Pblbjpnylt9033 [place] [address]Dr. Garima Pulliam Potassium [Moles/Vol] 3.6 mmol/L Normal 3.5-5.1 [facility] Comment on above: Performed By: #### C MP ####[facility] Fjfdlihtap1002 [place] [address]Dr. Garima Pulliam Protein [Mass/Vol] 6.7 g/dL Normal 6.4-8.2 [facility] Comment on above: Performed By: #### C MP ####[facility] Ogwtgbustc[address] [place], [place] [address]Dr. Garima Pulliam Sodium [Moles/Vol] 139 mmol/L Normal 136-145 [facility] Comment on above: Performed By: #### C MP ####[facility] Cnqrannyva7756 [place] [address]Dr. Garima Pulliam Urea nitrogen [Mass/Vol] 11.0 mg/dL Normal 7.0-18.0 [facility] Comment on above: Performed By: #### C MP ####[facility] Ibbdtkijsi7573 [place] [address]Dr. Garima Heraclio Urea nitrogen/Creatinine [Mass ratio] 14.1 mg/mg Normal [facility] Comment on above: Performed By: #### C MP ####[facility] Afazpqvjhf4790 [place] [address]Dr. Garima Pulliam CARDIAC NASH 3-6on 2 CK [Catalytic activity/Vol] 240 U/L Normal 39-308 [facility] Comment on above: Performed By: #### C MREP ####[facility] Xpyqioqxgw0042 [place] [address]Dr. Garima Pulliam CK.MB [Mass/Vol] 10.38 ng/mL Critically high <=3.60 [facility] Comment on above: Performed By: #### C MREP ####[facility] Dwgtggxlay5083 [place] [address]Dr. Garima Pulliam HSTROP 18.5 pg/mL Normal 4.0-76.1 [facility] Comment on above: Result Comment: CUT- OFF POINTS HAVE BEEN ESTABLISHED BASED ON THE FOURTH UNIVERSAL DEFINITIONS OF MYOCARDIALINFARCTION. THE UPPER REFERENCE LIMIT (URL) OF TROPONIN, DEFINED THE 99TH PERCENTILE OFcTnI DISTRIBUTION IN A REFERENCE POPULATION, HAS BEEN CONFIRMED THE DECISION THRESHOLDFOR MS DIAGNOSIS. Performed By: #### C MREP ####[facility] Fvyjuztlpc2497 [place] [address]Dr. Garima Pulliam CK [Catalytic activity/Vol] 257 U/L Normal 39-308 [facility] Comment on above: Performed By: #### C MREP ####[facility] Lmnzahokue[address] [place], [place] [address]Dr. Garima Pulliam CK.MB [Mass/Vol] 9.89 ng/mL Critically high <=3.60 [facility] Comment on above: Performed By: #### C MREP ####[facility] Rxxijmorhg[address] [place], [place] [address]Dr. Garima Pulliam HSTROP 16.9 pg/mL Normal 4.0-76.1 [facility] Comment on above: Result Comment: CUT- OFF POINTS HAVE BEEN ESTABLISHED BASED ON THE FOURTH UNIVERSAL DEFINITIONS OF MYOCARDIALINFARCTION. THE UPPER REFERENCE LIMIT (URL) OF TROPONIN, DEFINED THE 99TH PERCENTILE OFcTnI DISTRIBUTION IN A REFERENCE POPULATION, HAS BEEN CONFIRMED THE DECISION THRESHOLDFOR MS DIAGNOSIS. Performed By: #### C MREP ####[facility] Rcqkhqtqca[address] [place], [place] [address]Dr. Garima Pulliam CBC AUTO DIFFon 09-13-2022 BASO # 0.0 103/ul Normal 0.0-0.1 [facility] Comment on above: Performed By: #### C BC ####[facility] Ctezzqvdly[address] [place], [place] [address]Dr. Garima Pulliam Basophils/100 WBC (Bld) 0.1 % Critically low 0.2-2.0 [facility] Comment on above: Performed By: #### C BC ####[facility] [facility] Vsemwpng[address] [place], [place] [address]Dr. Garima Pulliam EO # 0.0 103/ul Normal 0.0-0.7 [facility] Comment on above: Performed By: #### C BC ####[facility] Zxqozboymn[address] [place], [place] [address]Dr. Chapisrenu Heraclio Eosinophils/100 WBC (Bld) 0.0 % Critically low 0.9-7.0 [facility] Comment on above: Performed By: #### C BC ####[facility] Alvxkdknj[address] [place], [place] [address]Dr. Garima Pulliam Erythrocyte distribution width (RBC) [Ratio] 13.6 % Normal 11.0-15.0 [facility] Comment on above: Performed By: #### C BC ####[facility] C[address]evvqjf[address] [place], [place] [address]Dr. Garima Pulliam Hematocrit (Bld) [Volume fraction] 48.2 % Normal 42.0-54.0 [facility] Comment on above: Performed By: #### C BC ####[facility] Kanitnniet[address] [place], [place] [address]Dr. Garima Pulliam Hemoglobin (Bld) [Mass/Vol] 16.0 g/dL Normal 14.0-18.0 [facility] Comment on above: Performed By: #### C BC ####[facility] Csniimkege[address] [place], [place] [address]Dr. Garima Pulliam IG # 0.02 10e3/ul Normal 0.00-0.03 [facility] Comment on above: Performed By: #### C BC ####[facility] Tgkwolvuaj[address] [place] [address]Dr. Chapisrenu Pulliam IG % 0.3 % Normal 0.0-0.5 [facility] Comment on above: Performed By: #### C BC ####[facility] Afdzvpkxns0729 [place] [address]Dr. Chapisrenu Heraclio LYMPH # 0.5 103/ul Critically low 1.2-3.8 The [facility] Comment on above: Performed By: #### C BC ####[facility] Ohjalsvlyp49[address] [place] [address]Dr. Chapisrenu Pulliam Lymphocytes/100 WBC (Bld) 7.7 % Critically low 20.5-60.0 [facility] Comment on above: Performed By: #### C BC ####[facility] Afsomdptcr7739 [place] [address]Dr. Garima Pulliam MANUAL DIFF REQ NO Normal The [facility] Comment on above: Performed By: #### C BC ####[facility] Bnmavmkkyz5378 [place] [address]Dr. Garima Heraclio MCH (RBC) [Entitic mass] 30.6 pg Normal 25.9-34.0 [facility] Comment on above: Performed By: #### C BC ####[facility] [address]qeh[address] [place], [place] [address]Dr. Garima Heraclio MCHC (RBC) [Mass/Vol] 33.2 g/dL Normal 29.9-35.2 [facility] Comment on above: Performed By: #### C BC ####[facility] Xwtbufgrsr0614 [place] [address]Dr. Chapisrenu Pulliam MCV (RBC) [Entitic vol] 92.2 fL Normal 80.0-94.0 [facility] Comment on above: Performed By: #### C BC ####[facility] Z[address]qszlhan[address] [place], [place] [address]Dr. Garima Pulliam MONO # 0.0 103/ul Critically low 0.3-0.8 The [facility] Comment on above: Performed By: #### C BC ####[facility] Jomtmowf[address] [place], [place] [address]Dr. Garima Pulliam Monocytes/100 WBC (Bld) 0.4 % Critically low 1.7-12.0 [facility] Comment on above: Performed By: #### C BC ####[facility] Xjgrzfpyjw20[address] [place] [address]Dr. Garima Pulliam NEUT # 6.2 103/ul Normal 1.4-6.5 [facility] Comment on above: Performed By: #### C BC ####[facility] Zaokcalxry7583 [place] [address]Dr. Garima Pulliam Neutrophils/100 WBC (Bld) 91.5 % Critically high 43.0-75.0 [facility] Comment on above: Performed By: #### C BC ####[facility] Cmsjcoxnhx8743 [place] [address]Dr. Garima Pulliam Platelet mean volume (Bld) [Entitic vol] 8.7 fL Critically low 9.5-13.5 [facility] Comment on above: Performed By: #### C BC ####[facility] Nqujuhqqli53[address] [place] [address]Dr. Garima Pulliam PLT 179 103/ul Normal 150-450 [facility] Comment on above: Performed By: #### C BC ####[facility] Duonlkvoya3672 [place] [address]Dr. Garima Pulliam RBC 5.23 106/ul Normal 4.70-6.10 [facility] Comment on above: Performed By: #### C BC ####[facility] Mdwtqsjrpe9888 [place] [address]Dr. Garima Pulliam WBC 6.7 103/ul Normal 4.0-11.0 [facility] Comment on above: Performed By: #### C BC ####[facility] Gltglbjtop8609 [place] [address]Dr. Garima Pulliam PROF CHEM 8 (BAS METB)on Anion gap [Moles/Vol] 12.1 mmol/L Normal [facility] Comment on above: Performed By: #### B MP ####[facility] Alibqhxwpi7536 [place] [address]Dr. Garima Pulliam Calcium [Mass/Vol] 8.7 mg/dL Normal 8.5-10.1 The [facility] Comment on above: Performed By: #### B MP ####[facility] Dxpxrigurp4818 [place] [address]Dr. Garima Pulliam Chloride [Moles/Vol] 105 mmol/L Normal 98-107 [facility] Comment on above: Performed By: #### B MP ####[facility] Cgsceyklpy3254 [place] [address]Dr. Garima Pulliam CO2 [Moles/Vol] 25.5 mmol/L Normal 21.0-32.0 The [facility] Comment on above: Performed By: #### B MP ####[facility] S[address]xnwyuwl[address] [place], [place] [address]Dr. Garima Pulliam Creatinine [Mass/Vol] 0.63 mg/dL Critically low 0.70-1.30 [facility] Comment on above: Performed By: #### B MP ####[facility] Gncgcdpenv[address] [place], [place] [address]Dr. Garima Pulliam EGFR-AF LEBANESE >60 Normal >=60 The [facility] Comment on above: Performed By: #### B MP ####[facility] Stipugxhbj[address] [place], [place] [address]Dr. Garima Heraclio EGFR-NON AF LEBANESE >60 Normal >=60 [facility] Comment on above: Performed By: #### B MP ####[facility] [address]xlzejwtk[address] [place], [place] [address]Dr. Garima Pulliam Glucose [Mass/Vol] 162 mg/dL Critically high 74-106 [facility] Comment on above: Performed By: #### B MP ####[facility] Kfsvnuutnc[address] [place], [place] [address]Dr. Garima Pulliam Potassium [Moles/Vol] 3.6 mmol/L Normal 3.5-5.1 [facility] Comment on above: Performed By: #### B MP ####[facility] Cwepuhgmor[address] [place], [place] [address]Dr. Chapisrenu Pulliam Sodium [Moles/Vol] 139 mmol/L Normal 136-145 [facility] Comment on above: Performed By: #### B DAVID ####[facility] Rxldfvyppd7823 [place] [address]Dr. Garima Pulliam Urea nitrogen [Mass/Vol] 9.0 mg/dL Normal 7.0-18.0 [facility] Comment on above: Performed By: #### B DAVID ####[facility] Kycnknfwvj7919 [place] [address]Dr. Chapisrenu Pulliam Urea nitrogen/Creatinine [Mass ratio] 14.3 mg/mg Normal [facility] Comment on above: Performed By: #### B DAVID ####[facility] Ufkrzgxtpv0116 [place] [address]Dr. Chapisrenu Pulliam CARDIAC NASH ADMITon 022 CK [Catalytic activity/Vol] 304 U/L Normal 39-308 [facility] Comment on above: Performed By: #### B NANCY HERNANDEZ ####[facility] Qpoxrintxy4710 [place] [address]Dr. Chapisrenu Pulliam CK.MB [Mass/Vol] 11.81 ng/mL Critically high <=3.60 Th [facility] Comment on above: Performed By: #### B NANCY HERNANDEZ ####[facility] Gbadiujvff7[address] [place] [address]Dr. Garima Heraclio HSTROP 13.3 pg/mL Normal 4.0-76.1 [facility] Comment on above: Result Comment: CUT- OFF POINTS HAVE BEEN ESTABLISHED BASED ON THE FOURTH UNIVERSAL DEFINITIONS OF MYOCARDIALINFARCTION. THE UPPER REFERENCE LIMIT (URL) OF TROPONIN, DEFINED THE 99TH PERCENTILE OFcTnI DISTRIBUTION IN A REFERENCE POPULATION, HAS BEEN CONFIRMED THE DECISION THRESHOLDFOR MS DIAGNOSIS. Performed By: #### NANCY Larkin MP ####[facility] Arrqqjofku25[address] [place] [address]Dr. Garima Pulliam DORIS 133 ng/mL Critically high 16-96 [facility] Comment on above: Performed By: #### NANCY Larkin MP ####[facility] Rrquehrlcj1685 [place] [address]Dr. Garima Pulliam CBC AUTO DIFFon 09-12-2022 BASO # 0.0 103/ul Normal 0.0-0.1 [facility] Comment on above: Performed By: #### C BC ####[facility] Zgpffviuuu0191 [place] [id number]. Garima Pulliam Basophils/100 WBC (Bld) 0.2 % Normal 0.2-2.0 [facility] Comment on above: Performed By: #### C BC ####[facility] Eplagufgjv3834 [place] [address]Dr. Garima Heraclio EO # 0.2 103/ul Normal 0.0-0.7 [facility] Comment on above: Performed By: #### C BC ####[facility] Erscqxthjl1156 [place] [address]Dr. Garima Heraclio Eosinophils/100 WBC (Bld) 1.3 % Normal 0.9-7.0 [facility] Comment on above: Performed By: #### C BC ####[facility] Crglebrgzy1490 [place] [address]Dr. Garima Pulliam Erythrocyte distribution width (RBC) [Ratio] 13.7 % Normal 11.0-15.0 [facility] Comment on above: Performed By: #### C BC ####[facility] Dqqhpolehw3174 [place] [address]Dr. Garima Pulliam Hematocrit (Bld) [Volume fraction] 46.4 % Normal 42.0-54.0 [facility] Comment on above: Performed By: #### C BC ####[facility] Tfyeovgorv2414 [place] [id number]. Garima Pulliam Hemoglobin (Bld) [Mass/Vol] 15.7 g/dL Normal 14.0-18.0 [facility] Comment on above: Performed By: #### C BC ####[facility] Fbvdcyvgzh2860 [place] [id number]. Garima Heraclio IG # 0.04 10e3/ul Critically high 0.00-0.03 [facility] Comment on above: Performed By: #### C BC ####[facility] Bfogdsayvi5223 [place] [id number]. Garima Pulliam IG % 0.3 % Normal 0.0-0.5 [facility] Comment on above: Performed By: #### C BC ####[facility] Qexjjgxndb8362 [place], [place] [address]Uo. Garima Pulliam LYMPH # 1.7 103/ul Normal 1.2-3.8 [facility] Comment on above: Performed By: #### C BC ####[facility] Eevsmhsjpi6309 [place] [id number]. Garima Pulliam Lymphocytes/100 WBC (Bld) 11.5 % Critically low 20.5-60.0 [facility] Comment on above: Performed By: #### C BC ####[facility] Pqqmqkzsfq5025 [place] [id number]. Garima Pulliam MANUAL DIFF REQ NO Normal The [facility] Comment on above: Performed By: #### C BC ####[facility] Mdxowvpsth2902 [place] [id number]. Garima Pulliam MCH (RBC) [Entitic mass] 31.0 pg Normal 25.9-34.0 [facility] Comment on above: Performed By: #### C BC ####[facility] Pslqmaevqc7057 [place] [id number]. Garima Pulliam MCHC (RBC) [Mass/Vol] 33.8 g/dL Normal 29.9-35.2 [facility] Comment on above: Performed By: #### C BC ####[facility] Pmkqpmevii6339 [place] [id number]. Garima Pulliam MCV (RBC) [Entitic vol] 91.7 fL Normal 80.0-94.0 [facility] Comment on above: Performed By: #### C BC ####[facility] Yrkpmwurkd3566 [place] [id number]. Garima Pulliam MONO # 0.8 103/ul Normal 0.3-0.8 [facility] Comment on above: Performed By: #### C BC ####[facility] Ghmcovrmos2173 [place] [id number]. Garima Pulliam Monocytes/100 WBC (Bld) 5.2 % Normal 1.7-12.0 [facility] Comment on above: Performed By: #### C BC ####[facility] Cfmurcaykq4981 [place] [id number]. Garima Pulliam NEUT # 11.7 103/ul Critically high 1.4-6.5 The [facility] Comment on above: Performed By: #### C BC ####[facility] Zbdhanrkom2013 [place] [id number]. Garima Pulliam Neutrophils/100 WBC (Bld) 81.5 % Critically high 43.0-75.0 [facility] Comment on above: Performed By: #### C BC ####[facility] Nudysspupw8761 [place] [id number]. Garima Pulliam Platelet mean volume (Bld) [Entitic vol] 8.6 fL Critically low 9.5-13.5 [facility] Comment on above: Performed By: #### C BC ####[facility] Lsqzduzjbo8162 [place] [id number]. Garima Pulliam PLT 191 103/ul Normal 150-450 [facility] Comment on above: Performed By: #### C BC ####[facility] Jqirhgqbhy0150 [place] [id number]. Garima Pulliam RBC 5.06 106/ul Normal 4.70-6.10 [facility] Comment on above: Performed By: #### C BC ####[facility] Uhq[address]rtzad[address] [place], [place] [address]Dr. Garima Pulliam WBC 14.4 103/ul Critically high 4.0-11.0 The [facility] Comment on above: Performed By: #### C BC ####[facility] [address]lcxwu[address] [place], [place] [address]Dr. aGrima Pulliam Covid-19 PCR (CVDTB)on 08-24 SARS-CoV-2 (COVID-19) RNA MARIE+probe Ql (Unsp spec) Not detected Normal NOT DETECTED [facility] Comment on above: Result Comment: When diagnostic [...] for this test is supported by the [place] of Health and Human Service's declaration that [...] used). Performed By: #### C VDTBH ####[facility] Dspuqocxge1842 [place] [address]Dr. Garima Pulliam LACTATE/LACTIC ACIDon 2021 Lactate [Moles/Vol] 1.0 mmol/L Normal 0.4-1.9 [facility] Comment on above: Performed By: #### L ACT ####[facility] [address]piqgslxuz[address] [place], [place] [address]Dr. Garima Pulliam PROF CHEM 8 (BAS METB)on Anion gap [Moles/Vol] 11.6 mmol/L Normal [facility] Comment on above: Performed By: #### NANCY Larkin MP ####[facility] Bootrtjxxi9329 [place] [address]Dr. Garima Pulliam Calcium [Mass/Vol] 9.2 mg/dL Normal 8.5-10.1 [facility] Comment on above: Performed By: #### NANCY Larkin MP ####[facility] Uzoxcokgpm8986 [place] [address]Dr. Garima Pulliam Chloride [Moles/Vol] 105 mmol/L Normal 98-107 [facility] Comment on above: Performed By: #### NANCY Larkin MP ####[facility] Cmjoopaxif1608 [place] [id number]. Garima Pulliam CO2 [Moles/Vol] 25.9 mmol/L Normal 21.0-32.0 The [facility] Comment on above: Performed By: #### B DAVID, NANCY ####[facility] Zgcwspvtxt8246 [place] [id number]. Garima Pulliam Creatinine [Mass/Vol] 0.72 mg/dL Normal 0.70-1.30 [facility] Comment on above: Performed By: #### B DAVID, CMAANA ROSA ####[facility] Kruuokjuqz9164 [place] [id number]. Garima Pulliam EGFR-AF LEBANESE >60 Normal >=60 [facility] Comment on above: Performed By: #### B DAVID, NANCY ####[facility] Vlmyhjafjh11[address] [place] [address]Dr. Garima Pulliam EGFR-NON AF LEBANESE >60 Normal >=60 [facility] Comment on above: Performed By: #### B DAVID, NANCY ####[facility] Rdqptkwzuj6428 [place] [id number]. Garima Pulliam Glucose [Mass/Vol] 111 mg/dL Critically high 74-106 [facility] Comment on above: Performed By: #### B DAVID, NANCY ####[facility] Gujgawgkbx6857 [place] [address]Dr. Garima Pulliam Potassium [Moles/Vol] 3.5 mmol/L Normal 3.5-5.1 [facility] Comment on above: Performed By: #### B DAVID, NANCY ####[facility] Gabdwmmcjl1512 [place] [id number]. Garima Pulliam Sodium [Moles/Vol] 139 mmol/L Normal 136-145 [facility] Comment on above: Performed By: #### B DAVID, NANCY ####[facility] Yvhnykrhgp0113 [place] [address]Dr. Garima Pulliam Urea nitrogen [Mass/Vol] 7.0 mg/dL Normal 7.0-18.0 [facility] Comment on above: Performed By: #### B DAVID, NANCY ####[facility] Kbrcmxehbh9882 [place], [place] [address]Xt. Garima Pulliam Urea nitrogen/Creatinine [Mass ratio] 9.7 mg/mg Normal [facility] Comment on above: Performed By: #### B DAVDI, NANCY ####[facility] Satmqkoahe18[address] [place], [place] [address]Dw. Garima Pulliam XR CHEST 1 Von 09-12-2022 XR CHEST 1 V Normal [facility] Encounters Encounter Date Encounter Type Care Provider [...] Facility:H1 Payers Date Payer Category Payer Unknown [id number] Medicaid [id number] 1960 Unknown [id number] 1959 Unknown [id number] 1954 Unknown [id number] 2.16.84 0.1.020195.3.579.2.593 1954 Unknown [id number] 2.16.84 0.1.540524.3.579.2.593 1954 Unknown [id number] 2.16.84 0.1.578523.3.579.2.593 1954 Unknown [id number] 2.16.84 0.1.097689.3.579.2.593 1954 Unknown [id number] 2.16.84 0.1.673917.3.579.2.593 1954 Unknown [id number] 2.16.84 0.1.998019.3.579.2.593 1954 Unknown [id number] 2.16.84 0.1.193199.3.579.2.593 1954 Unknown [id number] 2.16.84 0.1.585170.3.579.2.593 1954 Unknown [id number] 2.16.84 0.1.598340.3.579.2.593 1954 Unknown [id number] 2.16.84 0.1.724180.3.579.2.593 1954 Unknown [id number] 2.16.84 0.1.750456.3.579.2.593 1954 Unknown [id number] 2.16.84 0.1.919688.3.579.2.593 1954 Unknown [id number] 2.16.84 0.1.152970.3.579.2.593 1954 Unknown [id number] 2.16.84 0.1.171749.3.579.2.593 1954 Unknown [id number] 2.16.84 0.1.605043.3.579.2.593 1954 Unknown [id number] 2.16.84 0.1.350195.3.579.2.593 1954 Unknown [id number] 2.16.84 0.1.496577.3.579.2.593 1954 Unknown [id number] 2.16.84 0.1.698668.3.579.2.593 1954 Unknown [id number] 2.16.84 0.1.392212.3.579.2.593 1954 Unknown [id number] 2.16.84 0.1.792767.3.579.2.593 Summary Purpose Family History No Family History Records Found Advance Directives No Advanced Directives Records Found Additional Source Comments (unrecognized sect ion and content) No Status Records Found INFORMATION SOURCE (unrecogn ized section and content) DATE CREATED AUTHOR 04/08/2023 [facility] FOR RECORDS PERTAINING TO PATIENTS WHO [...] BE BASED ON THE PRIMARY CLINICAL RECORDS. [facility] [employer] [facility]. provides no warranty or guarantee of the accuracy or completeness of information in this document.
[2024-03-12 17:27] VITALS: BP 200/98; O2SAT 92
== END 2024-03-12 17:44 | disposition home or self-care (01) ==
PROVIDERS: Emergency Provider Emergency Medicine
DX: J44.9 Chronic obstructive pulmonary disease, unspecified (principal); I10 Essential (primary) hypertension; Z76.0 Encounter for issue of repeat prescription; Z79.899 Other long term (current) drug therapy; E11.9 Type 2 diabetes mellitus without complications; Z87.01 Personal history of pneumonia (recurrent); Z90.89 Acquired absence of other organs; F17.210 Nicotine dependence, cigarettes, uncomplicated; F12.90 Cannabis use, unspecified, uncomplicated
CPT/HCPCS: 94640; 99283

== ENCOUNTER 2024-03-13 13:39 | Emergency (ER) | payer MEDICARE, SELFPAY ==
[2024-03-13] VITALS (31 sets, daily range): BP systolic 115–148; BP diastolic 76–100; PULSE 78–188; TEMP 37.1; O2SAT 91–97; BMI 24.9
--- OUTSIDE RECORDS SUMMARY | 2024-03-13 13:50 | XMS_ITS | CCD ---
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; Translations: [OTH [facility] CURRENT DRUG THERAPY] Onset: 04-07-2023 Episodic Other [...] BASO # 0.0 103/ul Normal 0.0-0.1 [facility] Comment on above: Performed By: #### C BC ####[facility] Lldsaixcxk[address] [place], [place] [address]DrAdalberto Pulliam Basophils/100 WBC (Bld) 0.3 % Normal 0.2-2.0 [facility] Comment on above: Performed By: #### C BC ####[facility] Zbkgxiecah[address] [place], [place] [address]DrAdalberto Pulliam EO # 0.3 103/ul Normal 0.0-0.7 [facility] Comment on above: Performed By: #### C BC ####[facility] Ybqwpwoplx7543[address] [place], [place] [address]DrAdalberto Pulliam Eosinophils/100 WBC (Bld) 2.8 % Normal 0.9-7.0 [facility] Comment on above: Performed By: #### C BC ####[facility] [address] [place] [address]Dr. Garima Pulliam Erythrocyte distribution width (RBC) [Ratio] 13.4 % Normal 11.0-15.0 [facility] Comment on above: Performed By: #### C BC ####[facility] Clhzpcdhjb8767[address] [place], [place] [address]Dr. Garima Pulliam Hematocrit (Bld) [Volume fraction] 45.7 % Normal 42.0-54.0 [facility] Comment on above: Performed By: #### C BC ####[facility] Tehmkkqvvo1502[address] [place], [place] [address]Dr. Garima Pulliam Hemoglobin (Bld) [Mass/Vol] 15.2 g/dL Normal 14.0-18.0 [facility] Comment on above: Performed By: #### C BC ####[facility] Llwjqclncd025[address] [place], [place] [address]Dr. Garima Pulliam IG # 0.02 10e3/ul Normal 0.00-0.03 [facility] Comment on above: Performed By: #### C BC ####[facility] Laprnjrbpu6482[address] [place], [place] [address]Dr. Garima Pulliam IG % 0.2 % Normal 0.0-0.5 [facility] Comment on above: Performed By: #### C BC ####[facility] Wwhlgjkppe8155[address] [place], [place] [address]Dr. Garmia Pulliam LYMPH # 2.1 103/ul Normal 1.2-3.8 [facility] Comment on above: Performed By: #### C BC ####[facility] Gejsiinkmz2856[address] [place], [place] [address]Dr. Garima Pulliam Lymphocytes/100 WBC (Bld) 23.7 % Normal 20.5-60.0 [facility] Comment on above: Performed By: #### C BC ####[facility] Isfcbdbmvd[address] [place] [address]. Chapisrenu Pulliam MANUAL DIFF REQ NO Normal [facility] Comment on above: Performed By: #### C BC ####[facility] Mrijdukkqh[address] [place] [address]Dr. Garima Heraclio MCH (RBC) [Entitic mass] 30.4 pg Normal 25.9-34.0 [facility] Comment on above: Performed By: #### C BC ####[facility] Ghebfredik5759[address] [place], [place] [address]Dr. Garima Heraclio MCHC (RBC) [Mass/Vol] 33.3 g/dL Normal 29.9-35.2 [facility] Comment on above: Performed By: #### C BC ####[facility] Niidmtsbqd0524[address] [place], [place] [address]Dr. Garima Pulliam MCV (RBC) [Entitic vol] 91.4 fL Normal 80.0-94.0 [facility] Comment on above: Performed By: #### C BC ####[facility] Vwgbwolyhj3554[address] [place], [place] [address]Dr. Garima Pulliam MONO # 0.7 103/ul Normal 0.3-0.8 [facility] Comment on above: Performed By: #### C BC ####[facility] Uehtlkqvch0859[address] [place], [place] [address]Dr. Garima Pulliam Monocytes/100 WBC (Bld) 8.3 % Normal 1.7-12.0 [facility] Comment on above: Performed By: #### C BC ####[facility] Hnbyueeqbm2078[address] [place], [place] [address]DrAdalberto Pulliam NEUT # 5.8 103/ul Normal 1.4-6.5 [facility] Comment on above: Performed By: #### C BC ####[facility] Ezmlbezqcj717[address] [place], [place] [address]Dr. Garima Pulliam Neutrophils/100 WBC (Bld) 64.7 % Normal 43.0-75.0 [facility] Comment on above: Performed By: #### C BC ####[facility] Zeobdmucgr974[address] [place], [place] [address]Dr. Garima Heraclio Platelet mean volume (Bld) [Entitic vol] 8.6 fL Critically low 9.5-13.5 [facility] Comment on above: Performed By: #### C BC ####[facility] Jfpjdsfegk220[address] [place] [address]Dr. Chapisrenu Heraclio PLT 230 103/ul Normal 150-450 [facility] Comment on above: Performed By: #### C BC ####[facility] Vqxmnbpfev750[address] [place] [address]Dr. Garima Pulliam RBC 5.00 106/ul Normal 4.70-6.10 [facility] Comment on above: Performed By: #### C BC ####[facility] Wvksyghnrn1772[address] [place], [place] [address]Dr. Garima Pulliam WBC 9.0 103/ul Normal 4.0-11.0 [facility] Comment on above: Performed By: #### C BC ####[facility] Vjnmultkig2922[address] [place], [place] [address]DrAdalberto Pulliam MAGNESIUMon 04-04-2023 Magnesium [Mass/Vol] 1.8 mg/dL Normal 1.8-2.4 [facility] Comment on above: Performed By: #### M G ####[facility] Jugnnoyqdl0689[address] [place], [place] [address]DrAdalberto Pulliam PROF 14(COMP METB)on 023 Albumin [Mass/Vol] 3.8 g/dL Normal 3.4-5.0 [facility] Comment on above: Performed By: #### C MP ####[facility] Dioepzvrmp[address] [place] [address]DrAdalberto Pulliam Albumin/Globulin [Mass ratio] 1.2 {ratio} Normal [facility] Comment on above: Performed By: #### C MP ####[facility] Iizfaflyzh5832 [place] [address]DrAdalberto Pulliam ALP [Catalytic activity/Vol] 84 U/L Normal 46-116 [facility] Comment on above: Performed By: #### C MP ####[facility] Yaccrxgozl55[address] [place] [phone]. Garima Pulliam ALT [Catalytic activity/Vol] 31 U/L Normal 16-63 [facility] Comment on above: Performed By: #### C MP ####[facility] Ejbcwslvqe5888[address] [place], [place] [address]Dr. Garima Pulliam Anion gap [Moles/Vol] 12.2 mmol/L Normal Th [facility] Comment on above: Performed By: #### C MP ####[facility] Kruqrjfwqc1554[address] [place], [place] [address]Dr. Garima Pulliam AST [Catalytic activity/Vol] 23 U/L Normal 15-37 [facility] Comment on above: Performed By: #### C MP ####[facility] Nchfugopvg152[address] [place], [place] [address]Dr. Garima Pulliam Bilirubin [Mass/Vol] 0.5 mg/dL Normal 0.2-1.0 [facility] Comment on above: Performed By: #### C MP ####[facility] Sfesogfkje7684[address] [place], [place] [address]Dr. Garima Pulliam Calcium [Mass/Vol] 9.2 mg/dL Normal 8.5-10.1 [facility] Comment on above: Performed By: #### C MP ####[facility] Qympovrkei5688[address] [place], [place] [address]Dr. Garima Pulliam Chloride [Moles/Vol] 103 mmol/L Normal 98-107 [facility] Comment on above: Performed By: #### C MP ####[facility] Nzzhjuvadd9[address] [place], [place] [address]Dr. Garima Pulliam CO2 [Moles/Vol] 28.5 mmol/L Normal 21.0-32.0 [facility] Comment on above: Performed By: #### C MP ####[facility] Xetmrguhud8346[address] [place], [place] [address]Dr. Garima Pulliam Creatinine [Mass/Vol] 0.74 mg/dL Normal 0.70-1.30 [facility] Comment on above: Performed By: #### C MP ####[facility] Tnjhqktbsq848[address] [place], [place] [address]Dr. Garima Pulliam EGFR-AF CAMEROONIAN >60 Normal >=60 [facility] Comment on above: Performed By: #### C MP ####[facility] Fayivujtho[address] [place] [id number]. Garima Pulliam EGFR-NON AF CAMEROONIAN >60 Normal >=60 [facility] Comment on above: Performed By: #### C MP ####[facility] Kzzbrulgqq5605 [place] [phone]. Garima Heraclio Globulin (S) [Mass/Vol] 3.1 g/dL Normal [facility] Comment on above: Performed By: #### C MP ####[facility] Qgwpcvikuu5[address] [place] [address]Dr. Garima Heraclio Glucose [Mass/Vol] 93 mg/dL Normal 74-106 [facility] Comment on above: Performed By: #### C MP ####[facility] Bcahocoyvo49[address] [place] [address]Dr. Garima Heraclio Potassium [Moles/Vol] 3.7 mmol/L Normal 3.5-5.1 [facility] Comment on above: Performed By: #### C MP ####[facility] Egcthwskzl1432[address] [place], [place] [address]Dr. Garima Heraclio Protein [Mass/Vol] 6.9 g/dL Normal 6.4-8.2 [facility] Comment on above: Performed By: #### C MP ####[facility] Hlgelxqvfk80[address] [place] [address]Dr. Garima Heraclio Sodium [Moles/Vol] 140 mmol/L Normal 136-145 [facility] Comment on above: Performed By: #### C MP ####[facility] Azkbwinwwm6616 [place] [address]Dr. Garima Heralcio Urea nitrogen [Mass/Vol] 8.0 mg/dL Normal 7.0-18.0 [facility] Comment on above: Performed By: #### C MP ####[facility] Bivimjhovw5107 [place] [phone]. Chapisrenu Heraclio Urea nitrogen/Creatinine [Mass ratio] 10.8 mg/mg Normal [facility] Comment on above: Performed By: #### C MP ####[facility] Ysiewtvdzh7[address] [place] [address]Dr. Garima Pulliam AMMONIAon 03-30-2023 Ammonia (P) [Moles/Vol] 11 umol/L Normal 11-32 [facility] Comment on above: Performed By: #### A MM ####[facility] Ngmdcuenkj015[address] [place], [place] [address]Dr. Garima Pulliam CARDIAC NASH ADMITon 023 CK [Catalytic activity/Vol] 232 U/L Normal 39-308 [facility] Comment on above: Performed By: #### C NANCY HERNANDEZ ####[facility] Rhqxhfijpe026[address] [place], [place] [address]Dr. Garima Pulliam CK.MB [Mass/Vol] 4.83 ng/mL Critically high <=3.60 [facility] Comment on above: Performed By: #### C NANCY HERNANDEZ ####[facility] Ftvpyomtrw9267[address] [place], [place] [address]Dr. Garima Heraclio HSTROP 10.5 pg/mL Normal 4.0-76.1 [facility] Comment on above: Result Comment: CUT- OFF POINTS HAVE BEEN ESTABLISHED BASED ON THE FOURTH UNIVERSAL DEFINITIONS OF MYOCARDIALINFARCTION. THE UPPER REFERENCE LIMIT (URL) OF TROPONIN, DEFINED THE 99TH PERCENTILE OFcTnI DISTRIBUTION IN A REFERENCE POPULATION, HAS BEEN CONFIRMED THE DECISION THRESHOLDFOR PR DIAGNOSIS. Performed By: #### C NANCY HERNANDEZ ####[facility] Elqujainos[address] [place], [place] [address]Dr. Garima Pulliam DORIS 79 ng/mL Normal 16-96 [facility] Comment on above: Performed By: #### C NANCY HERNANDEZ ####[facility] Eucpsomiie6[address] [place], [place] [address]Dr. Chapisrenu Pulliam CBC AUTO DIFFon 03-30-2023 BASO # 0.0 103/ul Normal 0.0-0.1 [facility] Comment on above: Performed By: #### C BC ####[facility] Bmfbhflwcj30[address] [place] [address]Dr. Garima Pulliam Basophils/100 WBC (Bld) 0.1 % Critically low 0.2-2.0 [facility] Comment on above: Performed By: #### C BC ####[facility] Njcndnggtx8375[address] [place], [place] [address]Dr. Garima Pulliam EO # 0.3 103/ul Normal 0.0-0.7 [facility] Comment on above: Performed By: #### C BC ####[facility] Aeurvacgfq279[address] [place], [place] [address]Dr. Garima Pulliam Eosinophils/100 WBC (Bld) 3.3 % Normal 0.9-7.0 [facility] Comment on above: Performed By: #### C BC ####[facility] Yuecvkykpk9389[address] [place], [place] [address]Dr. Garima Pulliam Erythrocyte distribution width (RBC) [Ratio] 13.5 % Normal 11.0-15.0 [facility] Comment on above: Performed By: #### C BC ####[facility] Lupdakhtub80[address] [place], [place] [address]Dr. Garima Pulliam Hematocrit (Bld) [Volume fraction] 42.9 % Normal 42.0-54.0 [facility] Comment on above: Performed By: #### C BC ####[facility] Aanvlpyxcy3039[address] [place], [place] [address]Dr. Garima Pulliam Hemoglobin (Bld) [Mass/Vol] 13.9 g/dL Critically low 14.0-18.0 [facility] Comment on above: Performed By: #### C BC ####[facility] Snhogbvmzt6542[address] [place], [place] [address]Dr. Garima Pulliam IG # 0.01 10e3/ul Normal 0.00-0.03 [facility] Comment on above: Performed By: #### C BC ####[facility] Xqjbpmowxu5317[address] [place], [place] [address]Dr. Garima Pulliam IG % 0.1 % Normal 0.0-0.5 [facility] Comment on above: Performed By: #### C BC ####[facility] Newaydeqtt61[address] [place] [id number]. Garima Heraclio LYMPH # 1.7 103/ul Normal 1.2-3.8 [facility] Comment on above: Performed By: #### C BC ####[facility] Dcomcefhsm6924 [place] [phone]. Garima Heraclio Lymphocytes/100 WBC (Bld) 22.8 % Normal 20.5-60.0 [facility] Comment on above: Performed By: #### C BC ####[facility] Mlkglupxrn30[address] [place] [address]Dr. Chapisrenu Pulliam MANUAL DIFF REQ NO Normal [facility] Comment on above: Performed By: #### C BC ####[facility] Zoyqmczeux4[address] [place] [address]Dr. Garima Heraclio MCH (RBC) [Entitic mass] 30.5 pg Normal 25.9-34.0 [facility] Comment on above: Performed By: #### C BC ####[facility] Qntykfqmlt9767 [place] [address]Dr. Garima Heraclio MCHC (RBC) [Mass/Vol] 32.4 g/dL Normal 29.9-35.2 [facility] Comment on above: Performed By: #### C BC ####[facility] Fmamkjjdtp18[address] [place] [phone]. Chapisrenu Pulliam MCV (RBC) [Entitic vol] 94.1 fL Critically high 80.0-94.0 [facility] Comment on above: Performed By: #### C BC ####[facility] Iodmynjhzb7983 [place] [id number]. Chapisrenu Pulliam MONO # 0.7 103/ul Normal 0.3-0.8 [facility] Comment on above: Performed By: #### C BC ####[facility] Xpxhydvazl38[address] [place] [address]Dr. Chapisrenu Pulliam Monocytes/100 WBC (Bld) 8.6 % Normal 1.7-12.0 [facility] Comment on above: Performed By: #### C BC ####[facility] Lucwtnzhzt4614 [place] [phone]. Garima Pulliam NEUT # 4.9 103/ul Normal 1.4-6.5 [facility] Comment on above: Performed By: #### C BC ####[facility] Ofxxgylnfz1027 [place] [phone]. Garima Pulliam Neutrophils/100 WBC (Bld) 65.1 % Normal 43.0-75.0 [facility] Comment on above: Performed By: #### C BC ####[facility] Bdycmkmjrd39[address] [place] [address]Dr. Garima Pulliam Platelet mean volume (Bld) [Entitic vol] 8.5 fL Critically low 9.5-13.5 [facility] Comment on above: Performed By: #### C BC ####[facility] Khuonwjaql87[address] [place] [phone]. Garima Pulliam PLT 219 103/ul Normal 150-450 [facility] Comment on above: Performed By: #### C BC ####[facility] Tkqpvdzztq5952 [place] [phone]. Garima Pulliam RBC 4.56 106/ul Critically low 4.70-6.10 [facility] Comment on above: Performed By: #### C BC ####[facility] Tsyhkjyuqb9960 [place] [id number]. Garima Pulliam WBC 7.6 103/ul Normal 4.0-11.0 [facility] Comment on above: Performed By: #### C BC ####[facility] Kgyjqsppfz9070 [place] [phone]. Garima Pulliam LACTATE/LACTIC ACIDon 2022 Lactate [Moles/Vol] 1.2 mmol/L Normal 0.4-2.0 [facility] Comment on above: Performed By: #### L ACT ####[facility] Nvxzfycryf3[address] [place] [address]Dr. Garima Pulliam MAGNESIUMon 03-30-2023 Magnesium [Mass/Vol] 1.8 mg/dL Normal 1.8-2.4 [facility] Comment on above: Performed By: #### M G ####[facility] Xxfkfghgtk5941 [place] [address]Dr. Garima Pulliam PROF 14(COMP METB)on 023 Albumin [Mass/Vol] 3.5 g/dL Normal 3.4-5.0 [facility] Comment on above: Performed By: #### C DAVID, CMADM ####[facility] Evarinsomb[address] [place] [address]Dr. Garima Pulliam Albumin/Globulin [Mass ratio] 1.2 {ratio} Normal [facility] Comment on above: Performed By: #### C DAVID, CMADM ####[facility] Augdanhyev9467 [place] [address]Dr. Garima Pulliam ALP [Catalytic activity/Vol] 85 U/L Normal 46-116 [facility] Comment on above: Performed By: #### C DAVID, CMADM ####[facility] Tcgomxulue8083 [place] [address]Dr. Garima Pulliam ALT [Catalytic activity/Vol] 29 U/L Normal 16-63 [facility] Comment on above: Performed By: #### C DAVID, CMADM ####[facility] Zefmeelzib1428 [place] [address]Dr. Garima Pulliam Anion gap [Moles/Vol] 8.0 mmol/L Normal [facility] Comment on above: Performed By: #### C DAVID, CMADM ####[facility] Bryjldkmqq1771 [place] [address]Dr. Garima Pulliam AST [Catalytic activity/Vol] 18 U/L Normal 15-37 [facility] Comment on above: Performed By: #### C DAVID, CMADM ####[facility] Vkgijfcwty9232 [place] [address]Dr. Garima Pulliam Bilirubin [Mass/Vol] 0.4 mg/dL Normal 0.2-1.0 [facility] Comment on above: Performed By: #### C DAVID, CMADM ####[facility] Haqjgogkth0052 [place] [address]Dr. Garima Pulliam Calcium [Mass/Vol] 8.8 mg/dL Normal 8.5-10.1 [facility] Comment on above: Performed By: #### C DAVID, NANCY ####[facility] Gubsfiukwq8[address] [place] [address]Dr. Chapisrenu Heraclio Chloride [Moles/Vol] 108 mmol/L Critically high 98-107 [facility] Comment on above: Performed By: #### C DAVID, CMADM ####[facility] Wbzsztcovq5193 [place] [address]Dr. Chapisrenu Heraclio CO2 [Moles/Vol] 29.6 mmol/L Normal 21.0-32.0 [facility] Comment on above: Performed By: #### C DAVID, NANCY ####[facility] Tqjseteequ5[address] [place], [place] [address]Dr. Garima Pulliam Creatinine [Mass/Vol] 0.77 mg/dL Normal 0.70-1.30 [facility] Comment on above: Performed By: #### C DAVID, CMAANA ROSA ####[facility] Efxoqcoiva624[address] [place], [place] [address]Dr. Garima Heraclio EGFR-AF CAMEROONIAN >60 Normal >=60 [facility] Comment on above: Performed By: #### C DAVID, NANCY ####[facility] Yvtcyucnmc4416[address] [place], [place] [address]Dr. Garima Heraclio EGFR-NON AF CAMEROONIAN >60 Normal >=60 [facility] Comment on above: Performed By: #### C DAVID, CMADM ####[facility] Tyeocumlwf2904[address] [place], [place] [address]Dr. Garima Pulliam Globulin (S) [Mass/Vol] 2.8 g/dL Normal [facility] Comment on above: Performed By: #### C DAVID, CMADM ####[facility] Tbuivaivgu78[address] [place], [place] [address]Dr. Garima Pulliam Glucose [Mass/Vol] 207 mg/dL Critically high 74-106 [facility] Comment on above: Performed By: #### C DAVID, CMADM ####[facility] Wnjkgmmiks6659[address] [place], [place] [address]Dr. Garima Pulliam Potassium [Moles/Vol] 4.6 mmol/L Normal 3.5-5.1 [facility] Comment on above: Performed By: #### C DAVID, NANCY ####[facility] Dqsmaxufle6965 [place] [address]Dr. Garima Pulliam Protein [Mass/Vol] 6.3 g/dL Critically low 6.4-8.2 [facility] Comment on above: Performed By: #### C DAIVD, NANCY ####[facility] Fuhqjrpzfb3[address] [place] [address]Dr. Garima Pulliam Sodium [Moles/Vol] 141 mmol/L Normal 136-145 [facility] Comment on above: Performed By: #### C DAVID, NANCY ####[facility] Vbetdskozp649[address] [place], [place] [address]Dr. Garima Pulliam Urea nitrogen [Mass/Vol] 9.0 mg/dL Normal 7.0-18.0 [facility] Comment on above: Performed By: #### C NANCY HERNANDEZ ####[facility] Qesasyvxwu5905[address] [place], [place] [address]Dr. Garima Pulliam Urea nitrogen/Creatinine [Mass ratio] 11.7 mg/mg Normal [facility] Comment on above: Performed By: #### C NANCY HERNANDEZ ####[facility] Wutajgmpyb7466[address] [place], [place] [address]Dr. Garima Pulliam XR CHEST 1 Von 03-30-2023 XR CHEST 1 V Normal [facility] BNPon 03-27-2023 Natriuretic peptide B (Bld) [Mass/Vol] 251.0 pg/mL Normal <=900.0 [facility] Comment on above: Performed By: #### C MP, BNP, LIPID ####[facility] Iflhwwpylj312[address] [place], [place] [address]Dr. Garima Pulliam GLYCOHEMOGLOBIN A1Con 2022 ADA RECOMMENDATION SEE BELOW Normal [facility] Comment on above: Result Comment: ADA RECOMMENDED LIMIT 4.0 - 6.0 ADA THERAPEUTIC TARGET < 7.0 ACTION SUGGESTED > 7.0 Performed By: #### A 1C ####[facility] Ljwvnmtzfv4276 [place] [address]Dr. Garima Pulliam Glucose [Mass/Vol] 180 mg/dL Normal [facility] Comment on above: Performed By: #### A 1C ####[facility] Uubmsefmfh8052[address] [place], [place] [address]Dr. Garima Pulliam HbA1c (Bld) [Mass fraction] 7.9 % Critically high 4.5-6.2 [facility] Comment on above: Performed By: #### A 1C ####[facility] Feopzkuopt750[address] [place], [place] [address]Dr. Garima Pulliam HEMOGRAM AND PLATELon 2022 Hematocrit (Bld) [Volume fraction] 45.7 % Normal 42.0-54.0 [facility] Comment on above: Performed By: #### H H ####[facility] Noqyljkydj6448[address] [place], [place] [address]Dr. Chapisrenu Pulliam Hemoglobin (Bld) [Mass/Vol] 15.1 g/dL Normal 14.0-18.0 [facility] Comment on above: Performed By: #### H H ####[facility] Fxyfkpborz8846[address] [place], [place] [address]Dr. Garima Pulliam MCH (RBC) [Entitic mass] 30.0 pg Normal 25.9-34.0 [facility] Comment on above: Performed By: #### H H ####[facility] Conledemyr[address] [place], [place] [address]Dr. Garima Pulliam MCHC (RBC) [Mass/Vol] 33.0 g/dL Normal 29.9-35.2 [facility] Comment on above: Performed By: #### H H ####[facility] Rxasgjroji69[address] [place], [place] [address]Dr. Garima Pulliam MCV (RBC) [Entitic vol] 90.7 fL Normal 80.0-94.0 [facility] Comment on above: Performed By: #### H H ####[facility] Bjrmmqtyty529[address] [place], [place] [address]Dr. Chapisrenu Pulliam PLT 222 103/ul Normal 150-450 [facility] Comment on above: Performed By: #### H H ####[facility] Mnygzztvqn[address] [place] [id number]. Garima Pulliam RBC 5.04 106/ul Normal 4.70-6.10 [facility] Comment on above: Performed By: #### H H ####[facility] Cgzlndtsko26[address] [place] [phone]. Garima Pulliam WBC 8.7 103/ul Normal 4.0-11.0 [facility] Comment on above: Performed By: #### H H ####[facility] Cwfjpxlrgb6[address] [place] [id number]. Garima Pulliam LIPID PROFILEon 03-27-2023 CHOL-HDL RATIO NORM SEE BELOW Normal [facility] Comment on above: Result Comment: 3.3 - 4.4 LOW RISK 4.4 - 7.1 AVERAGE RISK 7.1 - 11.0 MODERATE RISK >11.0 HIGH RISK Performed By: #### C MP, BNP, LIPID ####[facility] Qbofuyekfo[address] [place] [address]Dr. Garima Pulliam Cholesterol [Mass/Vol] 113 mg/dL Normal <=200 [facility] Comment on above: Performed By: #### C MP, BNP, LIPID ####[facility] Rtgifoowje0[address] [place] [address]Dr. Garima Pulliam Cholesterol in HDL [Mass/Vol] 51 mg/dL Normal 40-60 [facility] Comment on above: Performed By: #### C MP, BNP, LIPID ####[facility] Msmkgpgiuu5[address] [place] [address]Dr. Garima Pulliam Cholesterol in LDL [Mass/Vol] 49.8 mg/dL Normal [facility] Comment on above: Performed By: #### C MP, BNP, LIPID ####[facility] Vghjsyfjim[address] [place] [address]Dr. Garima Pulliam Cholesterol.total/Cho lesterol in HDL [Mass ratio] 2.2 {ratio} Normal [facility] Comment on above: Performed By: #### C MP, BNP, LIPID ####[facility] Jvdblafayp7[address] [place] [address]Dr. Garima Pulliam HDL NORMAL > or = 60 mg/dl - LOW CARDIOVASCULAR RISK <40 mg/dl - HIGH CARDIOVASCULAR RISK Normal [facility] Comment on above: Performed By: #### C MP, BNP, LIPID ####[facility] Mcywogvhlx23[address] [place] [address]Dr. Garima Pulliam LDL CALC NORMAL SEE BELOW Normal [facility] Comment on above: Result Comment: <100 mg/dl OPTIMAL 100 - 129 mg/dl NEAR OR ABOVE OPTIMAL 130 - 159 mg/dl BORDERLINE HIGH 160 - 189 mg/dl HIGH >190 mg/dl VERY HIGH Performed By: #### C MP, BNP, LIPID ####[facility] Rtifajwpqf4[address] [place] [address]Dr. Garima Pulliam Triglyceride [Mass/Vol] 61 mg/dL Normal <=150 [facility] Comment on above: Performed By: #### C MP, BNP, LIPID ####[facility] Ohjkirrkac2[address] [place] [address]Dr. Garima Pulliam VLDL CALC 12.2 mg/dL Normal [facility] Comment on above: Performed By: #### C MP, BNP, LIPID ####[facility] Qnhnguiohw1415 [place] [address]Dr. Garima Pulliam PROF 14(COMP METB)on 023 Albumin [Mass/Vol] 3.5 g/dL Normal 3.4-5.0 [facility] Comment on above: Performed By: #### C MP, BNP, LIPID ####[facility] Lytgpdhfbp8[address] [place] [address]Dr. Garima Pulliam Albumin/Globulin [Mass ratio] 1.2 {ratio} Normal [facility] Comment on above: Performed By: #### C MP, BNP, LIPID ####[facility] Pwpspjkwwb6[address] [place] [address]Dr. Garima Pulliam ALP [Catalytic activity/Vol] 82 U/L Normal 46-116 [facility] Comment on above: Performed By: #### C MP, BNP, LIPID ####[facility] Grqbvscdtp7487 [place] [address]Dr. Garima Pulliam ALT [Catalytic activity/Vol] 33 U/L Normal 16-63 [facility] Comment on above: Performed By: #### C MP, BNP, LIPID ####[facility] Beibsfygks7837 [place] [address]Dr. Garima Pulliam Anion gap [Moles/Vol] 9.9 mmol/L Normal [facility] Comment on above: Performed By: #### C MP, BNP, LIPID ####[facility] Tdxuynqqpm0287 [place] [address]Dr. Garima Pulliam AST [Catalytic activity/Vol] 24 U/L Normal 15-37 [facility] Comment on above: Performed By: #### C MP, BNP, LIPID ####[facility] Jluropepwb1142 [place] [address]Dr. Garima Pulliam Bilirubin [Mass/Vol] 0.6 mg/dL Normal 0.2-1.0 [facility] Comment on above: Performed By: #### C MP, BNP, LIPID ####[facility] Fyctbcvgqw1091 [place] [address]Dr. Garima Pulliam Calcium [Mass/Vol] 9.2 mg/dL Normal 8.5-10.1 [facility] Comment on above: Performed By: #### C MP, BNP, LIPID ####[facility] Svoequqezz6004 [place] [address]Dr. Garima Pulliam Chloride [Moles/Vol] 106 mmol/L Normal 98-107 [facility] Comment on above: Performed By: #### C MP, BNP, LIPID ####[facility] Xrsmwctvbl0611 [place] [address]Dr. Garima Pulliam CO2 [Moles/Vol] 32.3 mmol/L Critically high 21.0-32.0 [facility] Comment on above: Performed By: #### C MP, BNP, LIPID ####[facility] Jxovjjrdum4927 [place] [address]Dr. Garima Pulliam Creatinine [Mass/Vol] 0.70 mg/dL Normal 0.70-1.30 [facility] Comment on above: Performed By: #### C MP, BNP, LIPID ####[facility] Cqwczzezdd5063 [place] [id number]. Garima Pulliam EGFR-AF CAMEROONIAN >60 Normal >=60 [facility] Comment on above: Performed By: #### C MP, BNP, LIPID ####[facility] Wzhtngaioo6833 [place] [id number]. Garima Pulliam EGFR-NON AF CAMEROONIAN >60 Normal >=60 [facility] Comment on above: Performed By: #### C MP, BNP, LIPID ####[facility] Yjrkxacqxg9424 [place] [address]Dr. Garima Pulliam Globulin (S) [Mass/Vol] 2.9 g/dL Normal [facility] Comment on above: Performed By: #### C MP, BNP, LIPID ####[facility] Yodkovcgvn0916 [place] [address]Dr. Garima Pulliam Glucose [Mass/Vol] 111 mg/dL Critically high 74-106 [facility] Comment on above: Performed By: #### C MP, BNP, LIPID ####[facility] Wvdvphplks9230 [place] [address]Dr. Garima Pulliam Potassium [Moles/Vol] 4.2 mmol/L Normal 3.5-5.1 [facility] Comment on above: Performed By: #### C MP, BNP, LIPID ####[facility] Gddylunacb3444 [place] [address]Dr. Garima Pulliam Protein [Mass/Vol] 6.4 g/dL Normal 6.4-8.2 [facility] Comment on above: Performed By: #### C MP, BNP, LIPID ####[facility] Dbucwllwwa3522 [place] [address]Dr. Garima Pulliam Sodium [Moles/Vol] 144 mmol/L Normal 136-145 [facility] Comment on above: Performed By: #### C MP, BNP, LIPID ####[facility] Ysgjiqxbhp8241 [place] [address]Dr. Garima Pulliam Urea nitrogen [Mass/Vol] 7.0 mg/dL Normal 7.0-18.0 [facility] Comment on above: Performed By: #### C MP, BNP, LIPID ####[facility] Kwoulskduy[address] [place], [place] [address]Dr. Garima Pulliam Urea nitrogen/Creatinine [Mass ratio] 10.0 mg/mg Normal [facility] Comment on above: Performed By: #### C MP, BNP, LIPID ####[facility] Bwpgzdates25[address] [place], [place] [address]Dr. Garmia Pulliam BNPon 03-22-2023 Natriuretic peptide B (Bld) [Mass/Vol] 103.0 pg/mL Normal <=900.0 [facility] Comment on above: Performed By: #### B AGRICULTURAL LENDER, BMP ####[facility] Ltdauhmcex39[address] [place], [place] [address]Dr. Garima Pulliam CBC AUTO DIFFon 03-22-2023 BASO # 0.0 103/ul Normal 0.0-0.1 [facility] Comment on above: Performed By: #### C BC ####[facility] Wiewwprxpw8859[address] [place], [place] [address]Dr. Garima Heraclio Basophils/100 WBC (Bld) 0.3 % Normal 0.2-2.0 [facility] Comment on above: Performed By: #### C BC ####[facility] Udyufjjpwe6[address] [place], [place] [address]Dr. Garima Pulliam EO # 0.2 103/ul Normal 0.0-0.7 [facility] Comment on above: Performed By: #### C BC ####[facility] Pesqvpnybm127[address] [place], [place] [address]Dr. Garima Heraclio Eosinophils/100 WBC (Bld) 2.2 % Normal 0.9-7.0 [facility] Comment on above: Performed By: #### C BC ####[facility] Fwdogtnben79[address] [place], [place] [address]Dr. Garima Pulliam Erythrocyte distribution width (RBC) [Ratio] 13.2 % Normal 11.0-15.0 [facility] Comment on above: Performed By: #### C BC ####[facility] Gmfwfdhexn9290 [place] [address]Dr. Chapisrenu Pulliam Hematocrit (Bld) [Volume fraction] 43.4 % Normal 42.0-54.0 [facility] Comment on above: Performed By: #### C BC ####[facility] Tahhlktlsd1491 [place] [address]Dr. Garima Pulliam Hemoglobin (Bld) [Mass/Vol] 14.3 g/dL Normal 14.0-18.0 [facility] Comment on above: Performed By: #### C BC ####[facility] Remkvbavlq18[address] [place], [place] [address]Dr. Garima Pulliam IG # 0.02 10e3/ul Normal 0.00-0.03 [facility] Comment on above: Performed By: #### C BC ####[facility] Huwzlkslpu4043[address] [place], [place] [address]Dr. Garima Pulliam IG % 0.3 % Normal 0.0-0.5 [facility] Comment on above: Performed By: #### C BC ####[facility] Uotzzijzuv4[address] [place], [place] [address]Dr. Garima Pulliam LYMPH # 2.0 103/ul Normal 1.2-3.8 [facility] Comment on above: Performed By: #### C BC ####[facility] Dpreuuloce5036[address] [place], [place] [address]Dr. Garima Pulliam Lymphocytes/100 WBC (Bld) 24.8 % Normal 20.5-60.0 [facility] Comment on above: Performed By: #### C BC ####[facility] Truvxwrezu0225 [place] [address]Dr. Garima Pulliam MANUAL DIFF REQ NO Normal [facility] Comment on above: Performed By: #### C BC ####[facility] Iaazdfbasb12[address] [place], [place] [address]Dr. Garima Pulliam MCH (RBC) [Entitic mass] 30.0 pg Normal 25.9-34.0 [facility] Comment on above: Performed By: #### C BC ####[facility] Texzgjmuew[address] [place], [place] [address]Dr. Garima Pulliam MCHC (RBC) [Mass/Vol] 32.9 g/dL Normal 29.9-35.2 [facility] Comment on above: Performed By: #### C BC ####[facility] Uropfrvbhs3560 [place] [address]Dr. Garima Heraclio MCV (RBC) [Entitic vol] 91.0 fL Normal 80.0-94.0 [facility] Comment on above: Performed By: #### C BC ####[facility] Ubgnrnytel6218 [place] [address]Dr. Garima Pulliam MONO # 0.8 103/ul Normal 0.3-0.8 [facility] Comment on above: Performed By: #### C BC ####[facility] Qcvumdhkpo4[address] [place], [place] [address]Dr. Garima Pulliam Monocytes/100 WBC (Bld) 9.7 % Normal 1.7-12.0 [facility] Comment on above: Performed By: #### C BC ####[facility] Vprvicyrsc107[address] [place], [place] [address]Dr. Garima Pulliam NEUT # 4.9 103/ul Normal 1.4-6.5 [facility] Comment on above: Performed By: #### C BC ####[facility] Sygcpcmgen30[address] [place], [place] [address]Dr. Garima Pulliam Neutrophils/100 WBC (Bld) 62.7 % Normal 43.0-75.0 [facility] Comment on above: Performed By: #### C BC ####[facility] Qlguvzcpma50[address] [place], [place] [address]Dr. Garima Pulliam Platelet mean volume (Bld) [Entitic vol] 8.8 fL Critically low 9.5-13.5 [facility] Comment on above: Performed By: #### C BC ####[facility] Umoysabmxt8824[address] [place], [place] [address]Dr. Garima Pulliam PLT 198 103/ul Normal 150-450 [facility] Comment on above: Performed By: #### C BC ####[facility] Gblctzqssi94[address] [place] [address]Dr. Garima Pulliam RBC 4.77 106/ul Normal 4.70-6.10 [facility] Comment on above: Performed By: #### C BC ####[facility] Mfgkpvbaxe5336 [place] [address]Dr. Garima Heraclio WBC 7.9 103/ul Normal 4.0-11.0 [facility] Comment on above: Performed By: #### C BC ####[facility] Wvlxhquuux5221 [place] [address]Dr. Chapisrenu Pulliam D-DIMERon 03-22-2023 D-DIMER 0.85 mg/L FEU Critically high <=0.59 [facility] Comment on above: Performed By: #### D DIM ####[facility] Xhgwylxxep8888 [place] [address]Dr. Garima Pulliam D-DIMER COMMENTS SEE BELOW Normal [facility] Comment on above: Result Comment: Incr [...] generalized hospitalization. Performed By: #### D DIM ####[facility] Kxmucrkggd9487 [place] [address]Dr. Garima Pulliam PROF CHEM 8 (BAS METB)on Anion gap [Moles/Vol] 6.9 mmol/L Normal [facility] Comment on above: Performed By: #### B AGRICULTURAL LENDER, BMP ####[facility] Wrgztgxfjv9962 [place] [address]Dr. Garima Pulliam Calcium [Mass/Vol] 8.9 mg/dL Normal 8.5-10.1 [facility] Comment on above: Performed By: #### B AGRICULTURAL LENDER, BMP ####[facility] Rrutorldqs5192 [place] [address]Dr. Garima Pulliam Chloride [Moles/Vol] 101 mmol/L Normal 98-107 [facility] Comment on above: Performed By: #### B AGRICULTURAL LENDER, BMP ####[facility] Sqtwocxipb4299[address] [place], [place] [address]Dr. Garima Pulliam CO2 [Moles/Vol] 30.7 mmol/L Normal 21.0-32.0 [facility] Comment on above: Performed By: #### B AGRICULTURAL LENDER, BMP ####[facility] Oulfswqdhi[address] [place], [place] [address]Dr. Chapisrenu Heraclio Creatinine [Mass/Vol] 0.82 mg/dL Normal 0.70-1.30 [facility] Comment on above: Performed By: #### B AGRICULTURAL LENDER, BMP ####[facility] Xrzvgsfzmh0125[address] [place], [place] [address]Dr. Garima Pulliam EGFR-AF CAMEROONIAN >60 Normal >=60 [facility] Comment on above: Performed By: #### B AGRICULTURAL LENDER, BMP ####[facility] Liqquvjddl400[address] [place], [place] [address]Dr. Chapisrenu Heraclio EGFR-NON AF CAMEROONIAN >60 Normal >=60 [facility] Comment on above: Performed By: #### B AGRICULTURAL LENDER, BMP ####[facility] Ffwgzvmbox214[address] [place], [place] [address]Dr. Garima Pulliam Glucose [Mass/Vol] 339 mg/dL Critically high 74-106 [facility] Comment on above: Performed By: #### B AGRICULTURAL LENDER, BMP ####[facility] Yndzawfgtb408[address] [place], [place] [address]Dr. Garima Pulliam Potassium [Moles/Vol] 3.6 mmol/L Normal 3.5-5.1 [facility] Comment on above: Performed By: #### B AGRICULTURAL LENDER, BMP ####[facility] Sjrekzoffd470[address] [place], [place] [address]Dr. Garima Pulliam Sodium [Moles/Vol] 135 mmol/L Critically low 136-145 [facility] Comment on above: Performed By: #### B AGRICULTURAL LENDER, BMP ####[facility] Talhofvifl0[address] [place], [place] [address]Dr. Garima Pulliam Urea nitrogen [Mass/Vol] 11.0 mg/dL Normal 7.0-18.0 [facility] Comment on above: Performed By: #### B AGRICULTURAL LENDER, BMP ####[facility] Qifryuajwi3876[address] [place], [place] [address]Dr. Garima Pulliam Urea nitrogen/Creatinine [Mass ratio] 13.4 mg/mg Normal [facility] Comment on above: Performed By: #### B AGRICULTURAL LENDER, BMP ####[facility] Ymhfdhgztv9[address] [place], [place] [address]DrAdalberto Garima Heraclio US VERONICA DOP LEG BILon 023 US VERONICA DOP LEG BENOIT Normal [facility] BNPon 03-18-2023 Natriuretic peptide B (Bld) [Mass/Vol] 226.0 pg/mL Normal <=900.0 [facility] Comment on above: Performed By: #### B AGRICULTURAL LENDER, BMP ####[facility] Kesuzjlvuf7963[address] [place], [place] [address]Dr. Garima Heraclio CBC AUTO DIFFon 03-18-2023 BASO # 0.0 103/ul Normal 0.0-0.1 [facility] Comment on above: Performed By: #### C BC ####[facility] Mktupgaqcn[address] [place], [place] [address]Dr. Garima Heraclio Basophils/100 WBC (Bld) 0.2 % Normal 0.2-2.0 [facility] Comment on above: Performed By: #### C BC ####[facility] Qhqblavjcp084[address] [place], [place] [address]DrAdalberto Garima Heraclio EO # 0.3 103/ul Normal 0.0-0.7 [facility] Comment on above: Performed By: #### C BC ####[facility] Ietgozhwhp4069[address] [place], [place] [address]Dr. Chapisrenu Pulliam Eosinophils/100 WBC (Bld) 2.5 % Normal 0.9-7.0 [facility] Comment on above: Performed By: #### C BC ####[facility] Qpuuqkxxoo0065[address] [place], [place] [address]DrAdalberto Garima Heraclio Erythrocyte distribution width (RBC) [Ratio] 13.2 % Normal 11.0-15.0 [facility] Comment on above: Performed By: #### C BC ####[facility] Jfgmlricjm1225 [place] [address]Dr. Garima Pulliam Hematocrit (Bld) [Volume fraction] 45.8 % Normal 42.0-54.0 [facility] Comment on above: Performed By: #### C BC ####[facility] Agorpwhbni8713 [place] [address]Dr. Garima Heraclio Hemoglobin (Bld) [Mass/Vol] 15.3 g/dL Normal 14.0-18.0 [facility] Comment on above: Performed By: #### C BC ####[facility] Qbfukxiugy0[address] [place], [place] [address]Dr. Garima Pulliam IG # 0.02 10e3/ul Normal 0.00-0.03 [facility] Comment on above: Performed By: #### C BC ####[facility] Bknkzwafut67[address] [place], [place] [address]Dr. Garima Pulliam IG % 0.2 % Normal 0.0-0.5 [facility] Comment on above: Performed By: #### C BC ####[facility] Zridmswllp232[address] [place], [place] [address]Dr. Chapisrenu Pulliam LYMPH # 1.8 103/ul Normal 1.2-3.8 [facility] Comment on above: Performed By: #### C BC ####[facility] Sgrqvzlqyi39[address] [place], [place] [address]Dr. Garima Pulliam Lymphocytes/100 WBC (Bld) 18.3 % Critically low 20.5-60.0 [facility] Comment on above: Performed By: #### C BC ####[facility] Dociapsgjf45[address] [place], [place] [address]Dr. Garima Pulliam MANUAL DIFF REQ NO Normal [facility] Comment on above: Performed By: #### C BC ####[facility] Iyfxouhnjg2535 [place] [address]Dr. Garima Pulliam MCH (RBC) [Entitic mass] 30.5 pg Normal 25.9-34.0 [facility] Comment on above: Performed By: #### C BC ####[facility] Ttsgsxgezh9750 [place] [id number]. Garima Pulliam MCHC (RBC) [Mass/Vol] 33.4 g/dL Normal 29.9-35.2 [facility] Comment on above: Performed By: #### C BC ####[facility] Kyyflwzyyo8934 [place] [phone]. Garima Pulliam MCV (RBC) [Entitic vol] 91.2 fL Normal 80.0-94.0 [facility] Comment on above: Performed By: #### C BC ####[facility] Qxctlshoib5234 [place] [address]Dr. Garima Pulliam MONO # 0.8 103/ul Normal 0.3-0.8 [facility] Comment on above: Performed By: #### C BC ####[facility] Lmgrqggwpo7013 [place] [address]Dr. Garima Pulliam Monocytes/100 WBC (Bld) 7.6 % Normal 1.7-12.0 [facility] Comment on above: Performed By: #### C BC ####[facility] Kzppwbuzdk8[address] [place], [place] [address]Dr. Garima Pulliam NEUT # 7.0 103/ul Critically high 1.4-6.5 [facility] Comment on above: Performed By: #### C BC ####[facility] Bfwausdgfj3304[address] [place], [place] [address]Dr. Garima Pulliam Neutrophils/100 WBC (Bld) 71.2 % Normal 43.0-75.0 [facility] Comment on above: Performed By: #### C BC ####[facility] Sdzgenfeeh[address] [place], [place] [id number]. Garima Pulliam Platelet mean volume (Bld) [Entitic vol] 8.9 fL Critically low 9.5-13.5 [facility] Comment on above: Performed By: #### C BC ####[facility] Hicxibimkc[address] [place], [place] [id number]. Garima Pulliam PLT 217 103/ul Normal 150-450 [facility] Comment on above: Performed By: #### C BC ####[facility] Pvrsezimmp6274 [place] [address]Dr. Garima Pulliam RBC 5.02 106/ul Normal 4.70-6.10 [facility] Comment on above: Performed By: #### C BC ####[facility] Spiflbapoj7776 [place] [address]Dr. Garima Pulliam WBC 9.8 103/ul Normal 4.0-11.0 [facility] Comment on above: Performed By: #### C BC ####[facility] Sfuvwaceup3[address] [place], [place] [address]DrAdalberto Pulliam CRPon 03-18-2023 CRP 0.1 mg/dL Normal <=1.0 [facility] Comment on above: Performed By: #### C RP ####[facility] Ksgaqsjycg138[address] [place], [place] [address]DrAdalberto Pulliam PROF CHEM 8 (BAS METB)on Anion gap [Moles/Vol] 10.4 mmol/L Normal [facility] Comment on above: Performed By: #### B AGRICULTURAL LENDER, BMP ####[facility] Mwbswimyrb77[address] [place], [place] [address]Dr. Garima Pulliam Calcium [Mass/Vol] 8.8 mg/dL Normal 8.5-10.1 [facility] Comment on above: Performed By: #### B AGRICULTURAL LENDER, BMP ####[facility] Qwkexyksli3804 [place] [address]Dr. Garima Pulliam Chloride [Moles/Vol] 97 mmol/L Critically low 98-107 [facility] Comment on above: Performed By: #### B AGRICULTURAL LENDER, BMP ####[facility] Yztaguxhcu94[address] [place], [place] [address]DrAdalberto Pulliam CO2 [Moles/Vol] 31.2 mmol/L Normal 21.0-32.0 [facility] Comment on above: Performed By: #### B AGRICULTURAL LENDER, BMP ####[facility] Jjrysvtsun[address] [place], [place] [address]Dr. Garima Pulliam Creatinine [Mass/Vol] 0.91 mg/dL Normal 0.70-1.30 [facility] Comment on above: Performed By: #### B AGRICULTURAL LENDER, BMP ####[facility] Hssenrkpuk6349 [place] [address]Dr. Garima Heraclio EGFR-AF CAMEROONIAN >60 Normal >=60 [facility] Comment on above: Performed By: #### B AGRICULTURAL LENDER, BMP ####[facility] Vgzesoyand1438 [place] [id number]. Garima Heraclio EGFR-NON AF CAMEROONIAN >60 Normal >=60 [facility] Comment on above: Performed By: #### B AGRICULTURAL LENDER, BMP ####[facility] Gblxajioez[address] [place], [place] [address]Dr. Garima Pulliam Glucose [Mass/Vol] 315 mg/dL Critically high 74-106 T [facility] Comment on above: Performed By: #### B AGRICULTURAL LENDER, BMP ####[facility] Ibpvoayzgj[address] [place], [place] [address]Dr. Garima Pulliam Potassium [Moles/Vol] 3.6 mmol/L Normal 3.5-5.1 [facility] Comment on above: Performed By: #### B AGRICULTURAL LENDER, BMP ####[facility] Yhpsuuaakc08[address] [place], [place] [address]Dr. Garima Pulliam Sodium [Moles/Vol] 135 mmol/L Critically low 136-145 Th [facility] Comment on above: Performed By: #### B AGRICULTURAL LENDER, BMP ####[facility] Dexysjkffu4318[address] [place], [place] [address]Dr. Chapisrenu Heraclio Urea nitrogen [Mass/Vol] 7.0 mg/dL Normal 7.0-18.0 [facility] Comment on above: Performed By: #### B AGRICULTURAL LENDER, BMP ####[facility] Kzhencmqtj[address] [place], [place] [address]Dr. Garima Pulliam Urea nitrogen/Creatinine [Mass ratio] 7.7 mg/mg Normal [facility] Comment on above: Performed By: #### B AGRICULTURAL LENDER, BMP ####[facility] Guludhhymk42[address] [place], [place] [address]Dr. Garima Pulliam SED RATE WESTERGRENon 2022 SED RATE 8 mm/hr Normal <=20 [facility] Comment on above: Performed By: #### S EDR ####[facility] Hcdocqkwpf[address] [place], [place] [address]Dr. Garima Pulliam BNPon 03-16-2023 Natriuretic peptide B (Bld) [Mass/Vol] 241.0 pg/mL Normal <=900.0 [facility] Comment on above: Performed By: #### B AGRICULTURAL LENDER, BMP, HSTROPN ####[facility] Ehbtcxziqx0101[address] [place], [place] [address]Dr. Garima Pulliam CBC AUTO DIFFon 03-16-2023 BASO # 0.0 103/ul Normal 0.0-0.1 [facility] Comment on above: Performed By: #### C BC ####[facility] Bofunfhadt8[address] [place], [place] [address]Dr. Chapisrenu Pulliam Basophils/100 WBC (Bld) 0.2 % Normal 0.2-2.0 [facility] Comment on above: Performed By: #### C BC ####[facility] Vkhvuoceer22[address] [place], [place] [address]Dr. Garima Pulliam EO # 0.2 103/ul Normal 0.0-0.7 [facility] Comment on above: Performed By: #### C BC ####[facility] Twqywaztvl69[address] [place], [place] [address]Dr. Garima Pulliam Eosinophils/100 WBC (Bld) 2.7 % Normal 0.9-7.0 [facility] Comment on above: Performed By: #### C BC ####[facility] Aciblrtjii9[address] [place], [place] [address]Dr. Garima Pulliam Erythrocyte distribution width (RBC) [Ratio] 13.1 % Normal 11.0-15.0 [facility] Comment on above: Performed By: #### C BC ####[facility] Lsipdbwohq01[address] [place], [place] [address]Dr. Garima Pulliam Hematocrit (Bld) [Volume fraction] 41.8 % Critically low 42.0-54.0 [facility] Comment on above: Performed By: #### C BC ####[facility] Kklqbinwxl[address] [place] [address]Dr. Garima Pulliam Hemoglobin (Bld) [Mass/Vol] 14.0 g/dL Normal 14.0-18.0 [facility] Comment on above: Performed By: #### C BC ####[facility] Znrvoxppdo2[address] [place] [address]Dr. Garima Pulliam IG # 0.03 10e3/ul Normal 0.00-0.03 [facility] Comment on above: Performed By: #### C BC ####[facility] Wrlvvlvcpi6382 [place] [address]Dr. Garima Pulliam IG % 0.3 % Normal 0.0-0.5 [facility] Comment on above: Performed By: #### C BC ####[facility] Fxupzhfewn7839 [place] [address]Dr. Chapisrenu Pulliam LYMPH # 2.1 103/ul Normal 1.2-3.8 [facility] Comment on above: Performed By: #### C BC ####[facility] Rhqmeelidh6362 [place] [address]Dr. Chapisrenu Pulliam Lymphocytes/100 WBC (Bld) 24.2 % Normal 20.5-60.0 [facility] Comment on above: Performed By: #### C BC ####[facility] Rptttoxrzn3714 [place] [address]Dr. Garima Pulliam MANUAL DIFF REQ NO Normal [facility] Comment on above: Performed By: #### C BC ####[facility] Mfrpuwjmib8421 [place] [phone]. Garima Pulliam MCH (RBC) [Entitic mass] 30.2 pg Normal 25.9-34.0 [facility] Comment on above: Performed By: #### C BC ####[facility] Dzwpjukdyh9176 [place] [phone]. Chapisrenu Pulliam MCHC (RBC) [Mass/Vol] 33.5 g/dL Normal 29.9-35.2 [facility] Comment on above: Performed By: #### C BC ####[facility] Icmyeuwpps1890 [place] [phone]. Garima Pulliam MCV (RBC) [Entitic vol] 90.1 fL Normal 80.0-94.0 [facility] Comment on above: Performed By: #### C BC ####[facility] Qqomafpvui5391 [place] [phone]. Garima Pulliam MONO # 0.6 103/ul Normal 0.3-0.8 [facility] Comment on above: Performed By: #### C BC ####[facility] Mmbzscyxvd6692 [place] [phone]. Garima Heraclio Monocytes/100 WBC (Bld) 7.4 % Normal 1.7-12.0 [facility] Comment on above: Performed By: #### C BC ####[facility] Ackwjgunhp[address] [place], [place] [id number]. Garima Pulliam NEUT # 5.6 103/ul Normal 1.4-6.5 [facility] Comment on above: Performed By: #### C BC ####[facility] Dfiaibaxxx027[address] [place], [place] [id number]. Garima Heraclio Neutrophils/100 WBC (Bld) 65.2 % Normal 43.0-75.0 [facility] Comment on above: Performed By: #### C BC ####[facility] Ogxlzumnli45[address] [place], [place] [phone]. Garima Heraclio Platelet mean volume (Bld) [Entitic vol] 8.7 fL Critically low 9.5-13.5 [facility] Comment on above: Performed By: #### C BC ####[facility] Vqdpuwvfgj2469 [place] [phone]. Garima Heraclio PLT 195 103/ul Normal 150-450 [facility] Comment on above: Performed By: #### C BC ####[facility] Nrflsyfird5388 [place] [phone]. Garima Pulliam RBC 4.64 106/ul Critically low 4.70-6.10 [facility] Comment on above: Performed By: #### C BC ####[facility] Cgbohxxzvd0631 [place] [address]Dr. Garima Pulliam WBC 8.6 103/ul Normal 4.0-11.0 [facility] Comment on above: Performed By: #### C BC ####[facility] Yrttqegpmx2089 [place] [address]Dr. Garima Pulliam PROF CHEM 8 (BAS METB)on Anion gap [Moles/Vol] 6.7 mmol/L Normal [facility] Comment on above: Performed By: #### B AGRICULTURAL LENDER, BMP, HSTROPN ####[facility] Qzwlrjuzjx6[address] [place], [place] [address]Dr. Garima Pulliam Calcium [Mass/Vol] 8.8 mg/dL Normal 8.5-10.1 [facility] Comment on above: Performed By: #### B AGRICULTURAL LENDER, BMP, HSTROPN ####[facility] Kcqjkugbbw55[address] [place], [place] [address]Dr. Garima Pulliam Chloride [Moles/Vol] 106 mmol/L Normal 98-107 [facility] Comment on above: Performed By: #### B AGRICULTURAL LENDER, BMP, HSTROPN ####[facility] Aqzdkrkwou40[address] [place], [place] [address]Dr. Garima Pulliam CO2 [Moles/Vol] 31.4 mmol/L Normal 21.0-32.0 [facility] Comment on above: Performed By: #### B AGRICULTURAL LENDER, BMP, HSTROPN ####[facility] Vyuhgvygkt34[address] [place], [place] [address]Dr. Garima Pulliam Creatinine [Mass/Vol] 0.75 mg/dL Normal 0.70-1.30 [facility] Comment on above: Performed By: #### B AGRICULTURAL LENDER, BMP, HSTROPN ####[facility] Bkcpypzubo6[address] [place], [place] [address]Dr. Garima Pulliam EGFR-AF CAMEROONIAN >60 Normal >=60 [facility] Comment on above: Performed By: #### B AGRICULTURAL LENDER, BMP, HSTROPN ####[facility] Hnezhuwerr6216 [place] [address]Dr. Garima Pulliam EGFR-NON AF CAMEROONIAN >60 Normal >=60 [facility] Comment on above: Performed By: #### B AGRICULTURAL LENDER, BMP, HSTROPN ####[facility] Qhyfytzjmo7857 [place] [address]Dr. Garima Pulliam Glucose [Mass/Vol] 161 mg/dL Critically high 74-106 [facility] Comment on above: Performed By: #### B AGRICULTURAL LENDER, BMP, HSTROPN ####[facility] Waqnaqzfss7628 [place] [address]Dr. Garima Pulliam Potassium [Moles/Vol] 4.1 mmol/L Normal 3.5-5.1 [facility] Comment on above: Performed By: #### B AGRICULTURAL LENDER, BMP, HSTROPN ####[facility] Txrypqvwph0591 [place] [address]Dr. Garima Pulliam Sodium [Moles/Vol] 140 mmol/L Normal 136-145 [facility] Comment on above: Performed By: #### B AGRICULTURAL LENDER, BMP, HSTROPN ####[facility] Wuarmypffc2073 [place] [address]Dr. Garima Pulliam Urea nitrogen [Mass/Vol] 7.0 mg/dL Normal 7.0-18.0 [facility] Comment on above: Performed By: #### B AGRICULTURAL LENDER, BMP, HSTROPN ####[facility] Xkcwlwsrll1886 [place] [address]Dr. Garima Pulliam Urea nitrogen/Creatinine [Mass ratio] 9.3 mg/mg Normal [facility] Comment on above: Performed By: #### B AGRICULTURAL LENDER, BMP, HSTROPN ####[facility] Tiyewebxtv4[address] [place], [place] [address]Dr. Garima Pulliam TROPONIN, HIGH SENSITIVITYon 03-16-2023 HSTROP 9.7 pg/mL Normal 4.0-76.1 [facility] Comment on above: Result Comment: CUT- OFF POINTS HAVE BEEN ESTABLISHED BASED ON THE FOURTH UNIVERSAL DEFINITIONS OF MYOCARDIALINFARCTION. THE UPPER REFERENCE LIMIT (URL) OF TROPONIN, DEFINED THE 99TH PERCENTILE OFcTnI DISTRIBUTION IN A REFERENCE POPULATION, HAS BEEN CONFIRMED THE DECISION THRESHOLDFOR PR DIAGNOSIS. Performed By: #### B AGRICULTURAL LENDER, BMP, HSTROPN ####[facility] Mrkdpxpqtn3261 [place] [address]Dr. Garima Pulliam XR CHEST 1 Von 03-16-2023 XR CHEST 1 V Normal [facility] BNPon 03-06-2023 Natriuretic peptide B (Bld) [Mass/Vol] 111.0 pg/mL Normal <=900.0 [facility] Comment on above: Performed By: #### C MP, BNP, CK ####[facility] Ltntwuhtzf5035 [place] [address]Dr. Chapisrenu Pulliam CBC AUTO DIFFon 03-06-2023 BASO # 0.0 103/ul Normal 0.0-0.1 [facility] Comment on above: Performed By: #### C BC ####[facility] Cjbaossegz9[address] [place], [place] [address]Dr. Garima Pulliam Basophils/100 WBC (Bld) 0.2 % Normal 0.2-2.0 [facility] Comment on above: Performed By: #### C BC ####[facility] Rkctiywlla54[address] [place], [place] [address]Dr. Garima Heraclio EO # 0.3 103/ul Normal 0.0-0.7 [facility] Comment on above: Performed By: #### C BC ####[facility] Ugtyrxggzz0167[address] [place], [place] [address]Dr. Garima Pulliam Eosinophils/100 WBC (Bld) 3.5 % Normal 0.9-7.0 [facility] Comment on above: Performed By: #### C BC ####[facility] Qsipnechcq8104[address] [place], [place] [address]Dr. Chapisrenu Pulliam Erythrocyte distribution width (RBC) [Ratio] 13.3 % Normal 11.0-15.0 [facility] Comment on above: Performed By: #### C BC ####[facility] Qvisflwexl459[address] [place], [place] [address]Dr. Garima Pulliam Hematocrit (Bld) [Volume fraction] 43.7 % Normal 42.0-54.0 [facility] Comment on above: Performed By: #### C BC ####[facility] Wpgvpeenqe1008 [place] [address]Dr. Garima Pulliam Hemoglobin (Bld) [Mass/Vol] 14.7 g/dL Normal 14.0-18.0 [facility] Comment on above: Performed By: #### C BC ####[facility] Nzphgbajja3567 [place] [address]Dr. Garima Pulliam IG # 0.03 10e3/ul Normal 0.00-0.03 [facility] Comment on above: Performed By: #### C BC ####[facility] Hmmmwwwunt8258 [place] [address]Dr. Garima Pulliam IG % 0.4 % Normal 0.0-0.5 [facility] Comment on above: Performed By: #### C BC ####[facility] Lptrqtkjoh01[address] [place], [place] [address]Dr. Garima Heraclio LYMPH # 2.0 103/ul Normal 1.2-3.8 [facility] Comment on above: Performed By: #### C BC ####[facility] Ibntuaniay688[address] [place], [place] [address]Dr. Chapisrenu Pulliam Lymphocytes/100 WBC (Bld) 23.7 % Normal 20.5-60.0 [facility] Comment on above: Performed By: #### C BC ####[facility] Eihhrjoffc2609 [place] [address]Dr. Chapisrenu Pulliam MANUAL DIFF REQ NO Normal [facility] Comment on above: Performed By: #### C BC ####[facility] Kerwovnlpo3441 [place] [address]Dr. Garima Pulliam MCH (RBC) [Entitic mass] 30.1 pg Normal 25.9-34.0 [facility] Comment on above: Performed By: #### C BC ####[facility] Hzrefgnnef8871 [place] [address]Dr. Garima Pulliam MCHC (RBC) [Mass/Vol] 33.6 g/dL Normal 29.9-35.2 [facility] Comment on above: Performed By: #### C BC ####[facility] Quevwwhine4603 [place] [phone]. Garima Pulliam MCV (RBC) [Entitic vol] 89.4 fL Normal 80.0-94.0 [facility] Comment on above: Performed By: #### C BC ####[facility] Mlrusgtdgh4955 [place] [address]Dr. Garima Pulliam MONO # 0.8 103/ul Normal 0.3-0.8 [facility] Comment on above: Performed By: #### C BC ####[facility] Wtzlckupqz8783 [place] [address]Dr. Chapisrenu Pulliam Monocytes/100 WBC (Bld) 9.0 % Normal 1.7-12.0 [facility] Comment on above: Performed By: #### C BC ####[facility] Fchxtrnwni98[address] [place], [place] [address]Dr. Garima Pulliam NEUT # 5.4 103/ul Normal 1.4-6.5 [facility] Comment on above: Performed By: #### C BC ####[facility] Fjpaacupyq6426[address] [place], [place] [address]Dr. Chapisrenu Pulliam Neutrophils/100 WBC (Bld) 63.2 % Normal 43.0-75.0 [facility] Comment on above: Performed By: #### C BC ####[facility] Rmogrbpuwq5736[address] [place], [place] [address]Dr. Garima Pulliam Platelet mean volume (Bld) [Entitic vol] 9.0 fL Critically low 9.5-13.5 [facility] Comment on above: Performed By: #### C BC ####[facility] Jbcoqoyusg[address] [place], [place] [id number]. Garima Pulliam PLT 218 103/ul Normal 150-450 [facility] Comment on above: Performed By: #### C BC ####[facility] Rdffgpmzcx9553[address] [place], [place] [address]Dr. Garima Pulliam RBC 4.89 106/ul Normal 4.70-6.10 [facility] Comment on above: Performed By: #### C BC ####[facility] Kydqpumphh5927 [place] [address]Dr. Garima Pulliam WBC 8.5 103/ul Normal 4.0-11.0 [facility] Comment on above: Performed By: #### C BC ####[facility] Xirwkhhhwg1251 [place] [address]Dr. Garima Pulliam CPKon 03-06-2023 CK [Catalytic activity/Vol] 191 U/L Normal 39-308 [facility] Comment on above: Performed By: #### C MP, BNP, CK ####[facility] Rogmgmxzix6388 [place] [address]Dr. Garima Pulliam PROF 14(COMP METB)on 023 Albumin [Mass/Vol] 3.6 g/dL Normal 3.4-5.0 [facility] Comment on above: Performed By: #### C MP, BNP, CK ####[facility] Gqxqfsogxx1272 [place] [address]Dr. Garima Pulliam Albumin/Globulin [Mass ratio] 1.2 {ratio} Normal [facility] Comment on above: Performed By: #### C MP, BNP, CK ####[facility] Dxtclwuuab4083 [place] [address]Dr. Garima Pulliam ALP [Catalytic activity/Vol] 91 U/L Normal 46-116 [facility] Comment on above: Performed By: #### C MP, BNP, CK ####[facility] Mmottgwtjt1420 [place] [address]Dr. Garima Pulliam ALT [Catalytic activity/Vol] 33 U/L Normal 16-63 [facility] Comment on above: Performed By: #### C MP, BNP, CK ####[facility] Xgpcwvwsml3770 [place] [address]Dr. Garima Pulliam Anion gap [Moles/Vol] 10.3 mmol/L Normal [facility] Comment on above: Performed By: #### C MP, BNP, CK ####[facility] Ukumixjvtf6522 [place] [address]Dr. Garima Pulliam AST [Catalytic activity/Vol] 17 U/L Normal 15-37 [facility] Comment on above: Performed By: #### C MP, BNP, CK ####[facility] Lrkxtiyqbp4979 [place] [address]Dr. Garima Pulliam Bilirubin [Mass/Vol] 0.4 mg/dL Normal 0.2-1.0 [facility] Comment on above: Performed By: #### C MP, BNP, CK ####[facility] Biyokbfssa2107 [place] [address]Dr. Garima Pulliam Calcium [Mass/Vol] 9.1 mg/dL Normal 8.5-10.1 [facility] Comment on above: Performed By: #### C MP, BNP, CK ####[facility] Mhyyvoyzza1435 [place] [address]Dr. Garima Pulliam Chloride [Moles/Vol] 102 mmol/L Normal 98-107 [facility] Comment on above: Performed By: #### C MP, BNP, CK ####[facility] Dfriyrbjaa2387 [place] [address]Dr. Garima Pulliam CO2 [Moles/Vol] 29.7 mmol/L Normal 21.0-32.0 [facility] Comment on above: Performed By: #### C MP, BNP, CK ####[facility] Prclbtbytp4260 [place] [address]Dr. Garima Pulliam Creatinine [Mass/Vol] 0.79 mg/dL Normal 0.70-1.30 [facility] Comment on above: Performed By: #### C MP, BNP, CK ####[facility] Kmiucsegsv6775 [place] [address]Dr. Garima Pulliam EGFR-AF CAMEROONIAN >60 Normal >=60 [facility] Comment on above: Performed By: #### C MP, BNP, CK ####[facility] Chkvjkmamk6325 [place] [address]Dr. Garima Pulliam EGFR-NON AF CAMEROONIAN >60 Normal >=60 [facility] Comment on above: Performed By: #### C MP, BNP, CK ####[facility] Glijupckhu5896 [place] [address]Dr. Garima Pulliam Globulin (S) [Mass/Vol] 3.0 g/dL Normal [facility] Comment on above: Performed By: #### C MP, BNP, CK ####[facility] Szoemrbrmm8064 [place] [address]Dr. Garima Pulliam Glucose [Mass/Vol] 202 mg/dL Critically high 74-106 T [facility] Comment on above: Performed By: #### C MP, BNP, CK ####[facility] Jaongpobow7316 [place] [address]Dr. Garima Heraclio Potassium [Moles/Vol] 4.0 mmol/L Normal 3.5-5.1 [facility] Comment on above: Performed By: #### C MP, BNP, CK ####[facility] Mneefqhuwf88[address] [place], [place] [address]Dr. Chapisrenu Pulliam Protein [Mass/Vol] 6.6 g/dL Normal 6.4-8.2 [facility] Comment on above: Performed By: #### C MP, BNP, CK ####[facility] Wiukjmsfug15[address] [place], [place] [address]Dr. Garima Heraclio Sodium [Moles/Vol] 138 mmol/L Normal 136-145 [facility] Comment on above: Performed By: #### C MP, BNP, CK ####[facility] Uwetnzpfrf6[address] [place], [place] [address]Dr. Garima Heraclio Urea nitrogen [Mass/Vol] 10.0 mg/dL Normal 7.0-18.0 [facility] Comment on above: Performed By: #### C MP, BNP, CK ####[facility] Wqphsiinfg4047 [place] [address]Dr. Garima Pulliam Urea nitrogen/Creatinine [Mass ratio] 12.7 mg/mg Normal [facility] Comment on above: Performed By: #### C MP, BNP, CK ####[facility] Njbgsmanlb7833 [place] [address]Dr. Garima Pulliam US VERONICA DOP LEG BILon 023 US VERONICA DOP LEG BENOIT Normal [facility] CBC AUTO DIFFon 01-13-2023 BASO # 0.0 103/ul Normal 0.0-0.1 [facility] Comment on above: Performed By: #### C BC ####[facility] Vktzwvrmgz3239 [place] [address]Dr. Garima Pulliam Basophils/100 WBC (Bld) 0.0 % Critically low 0.2-2.0 [facility] Comment on above: Performed By: #### C BC ####[facility] Tgajuuqzst0538 [place] [address]Dr. Garima Pulliam EO # 0.0 103/ul Normal 0.0-0.7 [facility] Comment on above: Performed By: #### C BC ####[facility] Ecuwspkbcd3901 [place] [address]Dr. Garima Pulliam Eosinophils/100 WBC (Bld) 0.0 % Critically low 0.9-7.0 [facility] Comment on above: Performed By: #### C BC ####[facility] Plcmbiujow3166 [place] [address]Dr. Garima Pulliam Erythrocyte distribution width (RBC) [Ratio] 13.2 % Normal 11.0-15.0 [facility] Comment on above: Performed By: #### C BC ####[facility] Nwwbcdtebe6214 [place] [address]Dr. Garima Pulliam Hematocrit (Bld) [Volume fraction] 46.7 % Normal 42.0-54.0 [facility] Comment on above: Performed By: #### C BC ####[facility] Txlxzolvgq9863 [place] [address]Dr. Garima Pulliam Hemoglobin (Bld) [Mass/Vol] 15.6 g/dL Normal 14.0-18.0 [facility] Comment on above: Performed By: #### C BC ####[facility] Tccijfsemj5915 [place] [address]Dr. Chapisrenu Heraclio IG # 0.01 10e3/ul Normal 0.00-0.03 [facility] Comment on above: Performed By: #### C BC ####[facility] Adtyuxwbvw6937 [place] [phone]. Garima Pulliam IG % 0.2 % Normal 0.0-0.5 [facility] Comment on above: Performed By: #### C BC ####[facility] Zviipprjuf6354 [place] [phone]. Garima Pulliam LYMPH # 0.8 103/ul Critically low 1.2-3.8 [facility] Comment on above: Performed By: #### C BC ####[facility] Ahmkvrxyiq5535 [place] [phone]. Garima Pulliam Lymphocytes/100 WBC (Bld) 12.7 % Critically low 20.5-60.0 [facility] Comment on above: Performed By: #### C BC ####[facility] Celaelftzz0390 [place] [phone]. Garima Pulliam MANUAL DIFF REQ NO Normal [facility] Comment on above: Performed By: #### C BC ####[facility] Deeynrleun7103 [place] [phone]. Garima Pulliam MCH (RBC) [Entitic mass] 30.2 pg Normal 25.9-34.0 [facility] Comment on above: Performed By: #### C BC ####[facility] Lbkmnhpaat1829 [place] [phone]. Garima Pulliam MCHC (RBC) [Mass/Vol] 33.4 g/dL Normal 29.9-35.2 [facility] Comment on above: Performed By: #### C BC ####[facility] Zkfeamxuba5895 [place] [phone]. Garima Pulliam MCV (RBC) [Entitic vol] 90.3 fL Normal 80.0-94.0 [facility] Comment on above: Performed By: #### C BC ####[facility] Iksjkeswcv5975 [place] [phone]. Garima Pulliam MONO # 0.1 103/ul Critically low 0.3-0.8 [facility] Comment on above: Performed By: #### C BC ####[facility] Lxfsfnjohl1612 [place] [id number]. Garima Pulliam Monocytes/100 WBC (Bld) 0.9 % Critically low 1.7-12.0 [facility] Comment on above: Performed By: #### C BC ####[facility] Caeqcmrvvu3624 [place] [phone]. Garima Pulliam NEUT # 5.6 103/ul Normal 1.4-6.5 [facility] Comment on above: Performed By: #### C BC ####[facility] Dmgticagfz4015 [place] [phone]. Garima Pulliam Neutrophils/100 WBC (Bld) 86.2 % Critically high 43.0-75.0 [facility] Comment on above: Performed By: #### C BC ####[facility] Xjdhxvixya1544 [place] [address]Dr. Garima Pulliam Platelet mean volume (Bld) [Entitic vol] 9.1 fL Critically low 9.5-13.5 [facility] Comment on above: Performed By: #### C BC ####[facility] Talwyfnhpz3479 [place] [phone]. Garima Pulliam PLT 169 103/ul Normal 150-450 [facility] Comment on above: Performed By: #### C BC ####[facility] Glkpqjszwa6204 [place] [phone]. Garima Pulliam RBC 5.17 106/ul Normal 4.70-6.10 [facility] Comment on above: Performed By: #### C BC ####[facility] Ibciphesqx[address] [place], [place] [id number]. Garima Pulliam WBC 6.5 103/ul Normal 4.0-11.0 [facility] General Comment on above: Performed By: #### C BC ####[facility] [address] [place] [address]Dr. Garima Pulliam D-DIMERon 01-13-2023 D-DIMER 0.41 mg/L FEU Normal <=0.59 [facility] Comment on above: Performed By: #### D DIM ####[facility] Bybhouuluh[address] [address]Dr. Garima Pulliam D-DIMER COMMENTS SEE BELOW Normal [facility] Comment on above: Result Comment: Incr [...] generalized hospitalization. Performed By: #### D DIM ####[facility] Xdjcyosltv[address] [place], [place] [address]Dr. Garima Pulliam PROF 14(COMP METB)on 023 Albumin [Mass/Vol] 3.4 g/dL Normal 3.4-5.0 [facility] Comment on above: Performed By: #### C MP ####[facility] Blbhfbffoq[address] [place], [place] [address]Dr. Garima Pulliam Albumin/Globulin [Mass ratio] 1.3 {ratio} Normal [facility] Comment on above: Performed By: #### C MP ####[facility] Tneoaqoiyx15[address] [place], [place] [address]Dr. Garima Pulliam ALP [Catalytic activity/Vol] 83 U/L Normal 46-116 [facility] Comment on above: Performed By: #### C MP ####[facility] Su[address]gcsd[address] [place] [address]Dr. Garima Pulliam ALT [Catalytic activity/Vol] 25 U/L Normal 16-63 [facility] Comment on above: Performed By: #### C MP ####[facility] Vjeorohuox[address] [place] [address]Dr. Garima Pulliam Anion gap [Moles/Vol] 14.5 mmol/L Normal [facility] Comment on above: Performed By: #### C MP ####[facility] Bdgqnddzmw23[address] [place], [place] [address]Dr. Garima Pulliam AST [Catalytic activity/Vol] 19 U/L Normal 15-37 [facility] Comment on above: Performed By: #### C MP ####[facility] Hgouywscjq4078[address] [place], [place] [address]Dr. Garima Pulliam Bilirubin [Mass/Vol] 0.4 mg/dL Normal 0.2-1.0 [facility] Comment on above: Performed By: #### C MP ####[facility] Zorqhpfwdt[address] [place], [place] [address]Dr. Garima Pulliam Calcium [Mass/Vol] 8.7 mg/dL Normal 8.5-10.1 [facility] Comment on above: Performed By: #### C MP ####[facility] Imlugiumyq[address] [place], [place] [address]Dr. Garima Pulliam Chloride [Moles/Vol] 104 mmol/L Normal 98-107 [facility] Comment on above: Performed By: #### C MP ####[facility] Hqhubjlmkn0549[address] [place], [place] [address]Dr. Garima Pulliam CO2 [Moles/Vol] 24.5 mmol/L Normal 21.0-32.0 [facility] Comment on above: Performed By: #### C MP ####[facility] Ktzcpkphvv[address] [place], [place] [address]Dr. Garima Pulliam Creatinine [Mass/Vol] 0.70 mg/dL Normal 0.70-1.30 [facility] Comment on above: Performed By: #### C MP ####[facility] Cdjbveclst3915[address] [place], [place] [address]Dr. Garima Heraclio EGFR-AF CAMEROONIAN >60 Normal >=60 [facility] Comment on above: Performed By: #### C MP ####[facility] Tbzjrmkoox4794[address] [place], [place] [address]Dr. Chapisrenu Heraclio EGFR-NON AF CAMEROONIAN >60 Normal >=60 [facility] Comment on above: Performed By: #### C MP ####[facility] Rsdfnqwnnk7317[address] [place], [place] [address]Dr. Garima Heraclio Globulin (S) [Mass/Vol] 2.6 g/dL Normal [facility] Comment on above: Performed By: #### C MP ####[facility] Owuwkxgkgk[address] [place] [address]Dr. Garima Pulliam Glucose [Mass/Vol] 196 mg/dL Critically high 74-106 [facility] Comment on above: Performed By: #### C MP ####[facility] Pucfuzdehx[address] [place] [address]Dr. Garima Heraclio Potassium [Moles/Vol] 4.0 mmol/L Normal 3.5-5.1 [facility] Comment on above: Performed By: #### C MP ####[facility] Hosgdsihgt7112[address] [place], [place] [address]Dr. Garima Heraclio Protein [Mass/Vol] 6.0 g/dL Critically low 6.4-8.2 [facility] Comment on above: Performed By: #### C MP ####[facility] Cqeqtjlbbo45[address] [place], [place] [address]Dr. Garima Heraclio Sodium [Moles/Vol] 139 mmol/L Normal 136-145 [facility] Comment on above: Performed By: #### C MP ####[facility] Alrniyetpf8035[address] [place], [place] [address]Dr. Garima Heraclio Urea nitrogen [Mass/Vol] 7.0 mg/dL Normal 7.0-18.0 [facility] Comment on above: Performed By: #### C MP ####[facility] Slttqttdlv7125[address] [place], [place] [address]Dr. Garima Heraclio Urea nitrogen/Creatinine [Mass ratio] 10.0 mg/mg Normal [facility] Comment on above: Performed By: #### C MP ####[facility] Fbukinfztr[address] [place], [place] [address]Dr. Garima Pulliam BNPon 01-12-2023 Natriuretic peptide B (Bld) [Mass/Vol] 141.0 pg/mL Normal <=900.0 [facility] Comment on above: Performed By: #### C MP, BNP, HSTROPN ####[facility] Nimyziodek6122[address] [place], [place] [address]Dr. Garima Pulliam CBC AUTO DIFFon 01-12-2023 BASO # 0.0 103/ul Normal 0.0-0.1 [facility] Comment on above: Performed By: #### C BC ####[facility] Xbjcokskdi24[address] [place], [place] [address]Dr. Garima Heraclio Basophils/100 WBC (Bld) 0.2 % Normal 0.2-2.0 [facility] Comment on above: Performed By: #### C BC ####[facility] Rylqwvmvsn[address] [place], [place] [address]Dr. Garima Pulliam EO # 0.2 103/ul Normal 0.0-0.7 [facility] Comment on above: Performed By: #### C BC ####[facility] Bplrljqtla7628[address] [place], [place] [address]Dr. Garima Pulliam Eosinophils/100 WBC (Bld) 2.7 % Normal 0.9-7.0 [facility] Comment on above: Performed By: #### C BC ####[facility] Ljngdcxasn4864[address] [place], [place] [address]Dr. Chapisrenu Pulliam Erythrocyte distribution width (RBC) [Ratio] 13.3 % Normal 11.0-15.0 [facility] Comment on above: Performed By: #### C BC ####[facility] Xxdgithlcd040[address] [place], [place] [address]Dr. Garima Pulliam Hematocrit (Bld) [Volume fraction] 42.3 % Normal 42.0-54.0 [facility] Comment on above: Performed By: #### C BC ####[facility] Bxdojxtzxa8364[address] [place], [place] [address]Dr. Garima Pulliam Hemoglobin (Bld) [Mass/Vol] 14.3 g/dL Normal 14.0-18.0 [facility] Comment on above: Performed By: #### C BC ####[facility] Gugtvsohzg[address] [place], [place] [address]Dr. Garima Pulliam IG # 0.02 10e3/ul Normal 0.00-0.03 [facility] Comment on above: Performed By: #### C BC ####[facility] Ixprratnxv[address] [place] [id number]. Garima Pulliam IG % 0.2 % Normal 0.0-0.5 [facility] Comment on above: Performed By: #### C BC ####[facility] Mlvhmprpbs3[address] [place] [address]Dr. Garima Pulliam LYMPH # 2.6 103/ul Normal 1.2-3.8 [facility] Comment on above: Performed By: #### C BC ####[facility] Ybjzdvpzur[address] [place] [address]Dr. Garima Pulliam Lymphocytes/100 WBC (Bld) 29.6 % Normal 20.5-60.0 [facility] Comment on above: Performed By: #### C BC ####[facility] Iiclvetrgt7[address] [place], [place] [address]Dr. Garima Pulliam MANUAL DIFF REQ NO Normal [facility] Comment on above: Performed By: #### C BC ####[facility] Wjqwyewxop[address] [place] [address]Dr. Garima Heraclio MCH (RBC) [Entitic mass] 30.2 pg Normal 25.9-34.0 [facility] Comment on above: Performed By: #### C BC ####[facility] Qsenxhvgvv7886[address] [place], [place] [address]Dr. Garima Heraclio MCHC (RBC) [Mass/Vol] 33.8 g/dL Normal 29.9-35.2 [facility] Comment on above: Performed By: #### C BC ####[facility] Cmbjscxjcz[address] [place] [address]Dr. Garima Pulliam MCV (RBC) [Entitic vol] 89.2 fL Normal 80.0-94.0 [facility] Comment on above: Performed By: #### C BC ####[facility] Szqgjjwqje6[address] [place], [place] [address]Dr. Garima Pulliam MONO # 0.7 103/ul Normal 0.3-0.8 [facility] Comment on above: Performed By: #### C BC ####[facility] Vjwhsojyac89[address] [place], [place] [address]Dr. Garima Pulliam Monocytes/100 WBC (Bld) 8.3 % Normal 1.7-12.0 [facility] Comment on above: Performed By: #### C BC ####[facility] L[address]qziyzrd[address] [place] [address]Dr. Garima Pulliam NEUT # 5.1 103/ul Normal 1.4-6.5 [facility] Comment on above: Performed By: #### C BC ####[facility] Jumacsnbie[address] [place] [address]Dr. Garima Pulliam Neutrophils/100 WBC (Bld) 59.0 % Normal 43.0-75.0 [facility] Comment on above: Performed By: #### C BC ####[facility] Kwvttunydr4[address] [place] [address]Dr. Garima Pulliam Platelet mean volume (Bld) [Entitic vol] 8.7 fL Critically low 9.5-13.5 [facility] Comment on above: Performed By: #### C BC ####[facility] Taftuiutlt[address] [place] [address]Dr. Garima Pulliam PLT 182 103/ul Normal 150-450 [facility] Comment on above: Performed By: #### C BC ####[facility] Rpcdytvojv[address] [place] [address]Dr. Garima Pulliam RBC 4.74 106/ul Normal 4.70-6.10 [facility] Comment on above: Performed By: #### C BC ####[facility] Jhauhrnoxa05[address] [place], [place] [address]Dr. Garima Pulliam WBC 8.7 103/ul Normal 4.0-11.0 [facility] Comment on above: Performed By: #### C BC ####[facility] Sofentzzyr6936[address] [place], [place] [address]Dr. Garima Pulliam [facility]25 SARS-CoV-2 (COVID-19) RNA MARIE+probe Ql (Unsp spec) Not detected Normal NOT DETECTED [facility] Comment on above: Result Comment: When diagnostic [...] for this test is supported by the Associate Data Scientist of Health and Human Service's declaration that [...] be used). Performed By: #### C VDTBH ####[facility] Gpgxtzyfxx[address] [place] [address]Dr. Garima Pulliam PROF 14(COMP METB)on 023 Albumin [Mass/Vol] 3.6 g/dL Normal 3.4-5.0 [facility] Comment on above: Performed By: #### C MP, BNP, HSTROPN ####[facility] Xjhnnjaera[address] [place], [place] [address]Dr. Garima Pulliam Albumin/Globulin [Mass ratio] 1.5 {ratio} Normal [facility] Comment on above: Performed By: #### C MP, BNP, HSTROPN ####[facility] Ykxejephcz599[address] [place], [place] [address]Dr. Garima Pulliam ALP [Catalytic activity/Vol] 79 U/L Normal 46-116 [facility] Comment on above: Performed By: #### C MP, BNP, HSTROPN ####[facility] Kjdfbxbget[address] [place], [place] [address]Dr. Garima Pulliam ALT [Catalytic activity/Vol] 27 U/L Normal 16-63 [facility] Comment on above: Performed By: #### C MP, BNP, HSTROPN ####[facility] Ddordemekt7[address] [place] [address]DrAdalberto Pulliam Anion gap [Moles/Vol] 11.7 mmol/L Normal Th e [facility] Comment on above: Performed By: #### C MP, BNP, HSTROPN ####[facility] Tkmhyvmxkg9[address] [place] [address]Dr. Garima Pulliam AST [Catalytic activity/Vol] 21 U/L Normal 15-37 [facility] Comment on above: Performed By: #### C MP, BNP, HSTROPN ####[facility] Ssiootunjo5[address] [place] [address]Dr. Garima Pulliam Bilirubin [Mass/Vol] 0.3 mg/dL Normal 0.2-1.0 [facility] Comment on above: Performed By: #### C MP, BNP, HSTROPN ####[facility] Mpcicdswbb8167[address] [place], [place] [address]Dr. Garima Pulliam Calcium [Mass/Vol] 8.9 mg/dL Normal 8.5-10.1 [facility] Comment on above: Performed By: #### C MP, BNP, HSTROPN ####[facility] Siyfowsdwb7866[address] [place], [place] [address]Dr. Garima Pulliam Chloride [Moles/Vol] 107 mmol/L Normal 98-107 [facility] Comment on above: Performed By: #### C MP, BNP, HSTROPN ####[facility] Okjgqhaixg[address] [place] [address]Dr. Garima Pulliam CO2 [Moles/Vol] 26.0 mmol/L Normal 21.0-32.0 [facility] Comment on above: Performed By: #### C MP, BNP, HSTROPN ####[facility] Hnkymvjrtz[address] [place], [place] [address]Dr. Garima Pulliam Creatinine [Mass/Vol] 0.65 mg/dL Critically low 0.70-1.30 [facility] Comment on above: Performed By: #### C MP, BNP, HSTROPN ####[facility] Ajhvknfhnc[address] [place] [address]Dr. Garima Pulliam EGFR-AF CAMEROONIAN >60 Normal >=60 [facility] Comment on above: Performed By: #### C MP, BNP, HSTROPN ####[facility] Fbtncpbpjl09[address] [place] [address]Dr. Garima Pulliam EGFR-NON AF CAMEROONIAN >60 Normal >=60 [facility] Comment on above: Performed By: #### C MP, BNP, HSTROPN ####[facility] Zuvguedyfw7[address] [place] [address]Dr. Garima Pulliam Globulin (S) [Mass/Vol] 2.4 g/dL Normal [facility] Comment on above: Performed By: #### C MP, BNP, HSTROPN ####[facility] Exoedsmvbk0596[address] [place], [place] [address]Dr. Garima Pulliam Glucose [Mass/Vol] 85 mg/dL Normal 74-106 [facility] Comment on above: Performed By: #### C MP, BNP, HSTROPN ####[facility] Jkknlalovw6963[address] [place], [place] [address]Dr. Garima Pulliam Potassium [Moles/Vol] 3.7 mmol/L Normal 3.5-5.1 [facility] Comment on above: Performed By: #### C MP, BNP, HSTROPN ####[facility] Aylybffkgs9542[address] [place], [place] [address]Dr. Garima Pulliam Protein [Mass/Vol] 6.0 g/dL Critically low 6.4-8.2 Th [facility] Comment on above: Performed By: #### C MP, BNP, HSTROPN ####[facility] Hdxodzelfx760[address] [place], [place] [address]Dr. Garima Pulliam Sodium [Moles/Vol] 141 mmol/L Normal 136-145 [facility] Comment on above: Performed By: #### C MP, BNP, HSTROPN ####[facility] Djvlhsuger9239[address] [place], [place] [address]Dr. Garima Pulliam Urea nitrogen [Mass/Vol] 5.0 mg/dL Critically low 7.0-18.0 [facility] Comment on above: Performed By: #### C MP, BNP, HSTROPN ####[facility] Pcgtkumyfy[address] [place] [address]Dr. Garima Pulliam Urea nitrogen/Creatinine [Mass ratio] 7.7 mg/mg Normal [facility] Comment on above: Performed By: #### C MP, BNP, HSTROPN ####[facility] Qnrzzshdqt35[address] [place] [address]Dr. Garima Pulliam PROTIMEon 01-12-2023 INR Coag (PPP) [Relative time] 1.16 {INR} Normal [facility] Comment on above: Performed By: #### P TT, PT ####[facility] Pvhgvxepua[address] [place], [place] [address]Dr. Garima Pulliam INR GUIDELINES SEE BELOW Normal [facility] Comment on above: Result Comment: WESLEY RED INR: 2.0 - 3.0 CONDITIONS NOT LISTED BELOW 2.5 - 3.5 FOR PROSTHETIC HEART VALVE REPLACEMENT 2.5 - 3.5 RECURRENT THROMBOSIS Performed By: #### P TT, PT ####[facility] Hrrexjmwre64[address] [place], [place] [address]Dr. Garima Pulliam PT Coag (PPP) [Time] 12.2 s Critically high 9.0-11.6 [facility] Comment on above: Performed By: #### P TT, PT ####[facility] Ejkfwcnrxw14[address] [place], [place] [address]Dr. Garima Pulliam PTTon 01-12-2023 aPTT Coag (Bld) [Time] 29.1 s Normal 22.3-36.2 [facility] Comment on above: Performed By: #### P TT, PT ####[facility] Pokvhjgjsl[address] [place], [place] [address]Dr. Garima Pulliam TROPONIN, HIGH SENSITIVITYon 01-12-2023 HSTROP 10.3 pg/mL Normal 4.0-76.1 [facility] Comment on above: Result Comment: CUT- OFF POINTS HAVE BEEN ESTABLISHED BASED ON THE FOURTH UNIVERSAL DEFINITIONS OF MYOCARDIALINFARCTION. THE UPPER REFERENCE LIMIT (URL) OF TROPONIN, DEFINED THE 99TH PERCENTILE OFcTnI DISTRIBUTION IN A REFERENCE POPULATION, HAS BEEN CONFIRMED THE DECISION THRESHOLDFOR PR DIAGNOSIS. Performed By: #### H STROPN ####[facility] Zpflabqxzw[address] [place] [id number]. Garima Pulliam HSTROP 9.2 pg/mL Normal 4.0-76.1 [facility] Comment on above: Result Comment: CUT- OFF POINTS HAVE BEEN ESTABLISHED BASED ON THE FOURTH UNIVERSAL DEFINITIONS OF MYOCARDIALINFARCTION. THE UPPER REFERENCE LIMIT (URL) OF TROPONIN, DEFINED THE 99TH PERCENTILE OFcTnI DISTRIBUTION IN A REFERENCE POPULATION, HAS BEEN CONFIRMED THE DECISION THRESHOLDFOR PR DIAGNOSIS. Performed By: #### C MP, BNP, HSTROPN ####[facility] Orpckunqty[address] [place] [address]Dr. Garima Pulliam XR CHEST 1 Von 01-12-2023 XR CHEST 1 V Normal [facility] XR CHEST 1 Von 01-01-2023 XR CHEST 1 V Normal [facility] CARDIAC NASH 3-6on 3 CK [Catalytic activity/Vol] 196 U/L Normal 39-308 [facility] Comment on above: Performed By: #### C MREP ####[facility] Jpjgplgmul[address] [place] [address]Dr. Garima Pulliam CK.MB [Mass/Vol] 7.41 ng/mL Critically high <=3.60 [facility] Comment on above: Performed By: #### C MREP ####[facility] Ianrcobocv[address] [place] [address]Dr. Garima Pulliam HSTROP 10.3 pg/mL Normal 4.0-76.1 [facility] Comment on above: Result Comment: CUT- OFF POINTS HAVE BEEN ESTABLISHED BASED ON THE FOURTH UNIVERSAL DEFINITIONS OF MYOCARDIALINFARCTION. THE UPPER REFERENCE LIMIT (URL) OF TROPONIN, DEFINED THE 99TH PERCENTILE OFcTnI DISTRIBUTION IN A REFERENCE POPULATION, HAS BEEN CONFIRMED THE DECISION THRESHOLDFOR PR DIAGNOSIS. Performed By: #### C MREP ####[facility] Uwbzcjjoyt[address] [place] [id number]. Garima Pulliam XR CHEST 1 Von 12-26-2022 XR CHEST 1 V Normal [facility] BNPon 12-25-2022 Natriuretic peptide B (Bld) [Mass/Vol] 98.0 pg/mL Normal <=900.0 [facility] Comment on above: Performed By: #### B MARVIN FRENCH CMADM ####[facility] Sjilvtjpuc[address] [place] [address]Dr. Garima Heraclio CARDIAC NASH ADMITon 023 CK [Catalytic activity/Vol] 208 U/L Normal 39-308 [facility] Comment on above: Performed By: #### B MARVIN FRENCH CMADM ####[facility] Kemwlrdcjy[address] [place] [address]Dr. Garima Pulliam CK.MB [Mass/Vol] 7.63 ng/mL Critically high <=3.60 [facility] Comment on above: Performed By: #### B MARVIN FRENCH CMADM ####[facility] Dohtmrwjbc65[address] [place] [address]Dr. Chapisrenu Pulliam HSTROP 8.8 pg/mL Normal 4.0-76.1 [facility] Comment on above: Result Comment: CUT- OFF POINTS HAVE BEEN ESTABLISHED BASED ON THE FOURTH UNIVERSAL DEFINITIONS OF MYOCARDIALINFARCTION. THE UPPER REFERENCE LIMIT (URL) OF TROPONIN, DEFINED THE 99TH PERCENTILE OFcTnI DISTRIBUTION IN A REFERENCE POPULATION, HAS BEEN CONFIRMED THE DECISION THRESHOLDFOR PR DIAGNOSIS. Performed By: #### B MARVIN FRENCH CMADM ####[facility] Nmhuoxgthv[address] [place] [address]Dr. Garima Pulliam DORIS 83 ng/mL Normal 16-96 [facility] Comment on above: Performed By: #### B MARVIN FRENCH CMADM ####[facility] Akekbbojnq[address] [place] [address]Dr. Garima Pulliam CBC AUTO DIFFon 12-25-2022 BASO # 0.0 103/ul Normal 0.0-0.1 [facility] Comment on above: Performed By: #### C BC ####[facility] Xrgyhkdpfr97[address] [place] [address]Dr. Garima Pulliam Basophils/100 WBC (Bld) 0.0 % Critically low 0.2-2.0 [facility] Comment on above: Performed By: #### C BC ####[facility] Byrdmiqahc9264 [place] [phone]. Garima Pulliam EO # 0.0 103/ul Normal 0.0-0.7 [facility] Comment on above: Performed By: #### C BC ####[facility] Alwkltqeei0550 [place] [phone]. Garima Pulliam Eosinophils/100 WBC (Bld) 0.7 % Critically low 0.9-7.0 [facility] Comment on above: Performed By: #### C BC ####[facility] Rbpwmowvpm[address] [place], [place] [address]Dr. Garima Pulliam Erythrocyte distribution width (RBC) [Ratio] 13.4 % Normal 11.0-15.0 [facility] Comment on above: Performed By: #### C BC ####[facility] Yvokhbntsg1611[address] [place], [place] [address]Dr. Garima Pulliam Hematocrit (Bld) [Volume fraction] 42.9 % Normal 42.0-54.0 [facility] Comment on above: Performed By: #### C BC ####[facility] Otlbeokjzc[address] [place], [place] [address]Dr. Garima Pulliam Hemoglobin (Bld) [Mass/Vol] 14.4 g/dL Normal 14.0-18.0 [facility] Comment on above: Performed By: #### C BC ####[facility] Salhiiqmsu[address] [place], [place] [address]Dr. Garima Pulliam IG # 0.00 10e3/ul Normal 0.00-0.03 [facility] Comment on above: Performed By: #### C BC ####[facility] Hfgjixptvg6646[address] [place], [place] [address]Dr. Garima Pulliam IG % 0.0 % Normal 0.0-0.5 [facility] Comment on above: Performed By: #### C BC ####[facility] Bbsaplunab5207[address] [place], [place] [address]Dr. Garima Pulliam LYMPH # 2.4 103/ul Normal 1.2-3.8 [facility] Comment on above: Performed By: #### C BC ####[facility] Rvxjglglwx[address] [place] [id number]. Garima Heraclio Lymphocytes/100 WBC (Bld) 29.2 % Normal 20.5-60.0 [facility] Comment on above: Performed By: #### C BC ####[facility] Cyyqnofred5451 [place] [phone]. Garima Pulliam MANUAL DIFF REQ NO Normal [facility] Comment on above: Performed By: #### C BC ####[facility] Nlweeaemeh5666 [place] [phone]. Garima Heraclio MCH (RBC) [Entitic mass] 30.7 pg Normal 25.9-34.0 [facility] Comment on above: Performed By: #### C BC ####[facility] Dvjhcwrnuc[address] [place], [place] [id number]. Garima Pulliam MCHC (RBC) [Mass/Vol] 33.6 g/dL Normal 29.9-35.2 [facility] Comment on above: Performed By: #### C BC ####[facility] Yooflhkjab[address] [place], [place] [id number]. Garima Heraclio MCV (RBC) [Entitic vol] 91.5 fL Normal 80.0-94.0 [facility] Comment on above: Performed By: #### C BC ####[facility] Qtszkpawhh8[address] [place], [place] [address]Dr. Garima Pulliam MONO # 0.0 103/ul Critically low 0.3-0.8 [facility] Comment on above: Performed By: #### C BC ####[facility] Fsjuipolei[address] [place], [place] [id number]. Garima Pulliam Monocytes/100 WBC (Bld) 8.0 % Normal 1.7-12.0 [facility] Comment on above: Performed By: #### C BC ####[facility] Eoxtoclmsw[address] [place], [place] [id number]. Garima Pulliam NEUT # 5.1 103/ul Normal 1.4-6.5 [facility] Comment on above: Performed By: #### C BC ####[facility] Rkqrdxzsiu2604 [place], [place] [address]Ed. Garima Pulliam Neutrophils/100 WBC (Bld) 62.8 % Normal 43.0-75.0 [facility] Comment on above: Performed By: #### C BC ####[facility] Ejguhpvegm7240 [place], [place] [address]Qc. Garima Pulliam Platelet mean volume (Bld) [Entitic vol] 8.6 fL Critically low 9.5-13.5 [facility] Comment on above: Performed By: #### C BC ####[facility] Zuoybvsorf1082 [place], [place] [address]Ja. Garima Pulliam PLT 200 103/ul Normal 150-450 [facility] Comment on above: Performed By: #### C BC ####[facility] Wyxgxbwhnv0921 [place], [place] [address]Mv. Garima Pulliam RBC 4.69 106/ul Critically low 4.70-6.10 [facility] Comment on above: Performed By: #### C BC ####[facility] Jcvgyqwykp1080 [place], [place] [address]Cn. Garima Pulliam WBC 8.2 103/ul Normal 4.0-11.0 [facility] Comment on above: Performed By: #### C BC ####[facility] Yybsxfizhd0096 [place], [place] [address]Wo. Garima Pulliam Covid-19 PCR (CVDTB)on SARS-CoV-2 (COVID-19) RNA MARIE+probe Ql (Unsp spec) Not detected Normal NOT DETECTED [facility] Comment on above: Result Comment: When diagnostic [...] for this test is supported by the [place] of Health and Human Service's declaration that [...] be used). Performed By: #### C VDTBH ####[facility] Qszkpcjejg[address] [place], [place] [address]DrAdalberto Pulliam INFLUENZA A AND B AGon 12-25 INFLUANEGH SEE BELOW Normal [facility] Comment on above: Result Comment: Nega tive for Flu A protein angiten. Infection due to Flu A cannot be ruled out. Flu A angiten in the sample may be below the detection limit of the test. Performed By: #### I NFLUAB ####[facility] Apbangmetu10[address] [place], [place] [address]Dr. Garima Pulliam INFLUBNEG SEE BELOW Normal [facility] Comment on above: Result Comment: Nega tive for Flu B protein antigen. Infection due to Flu B cannot be ruled out. Flu B antigen in the sample may be below the detection limit of the test. Performed By: #### I NFLUAB ####[facility] Nssuozjjaj[address] [place], [place] [address]Dr. Garima Pulliam INFLUENZA A AG Negative Normal NEGATIVE SEE COMMENT [facility] Comment on above: Performed By: #### I NFLUAB ####[facility] Stmftztcix9[address] [place], [place] [address]DrAdalberto Pulliam INFLUENZA B AG Negative Normal NEGATIVE SEE COMMENT [facility] Comment on above: Performed By: #### I NFLUAB ####[facility] Swgejjvzof87[address] [place], [place] [address]DrAdalberto Pulliam PROF CHEM 8 (BAS METB)on Anion gap [Moles/Vol] 11.1 mmol/L Normal Th [facility] [place] [facility] Comment on above: Performed By: #### B AGRICULTURAL LENDER, BMP, CMADM ####[facility] Davcsirulj7156[address] [place], [place] [address]Dr. Garima Pulliam Calcium [Mass/Vol] 8.5 mg/dL Normal 8.5-10.1 [facility] Comment on above: Performed By: #### B AGRICULTURAL LENDER, MARVIN, CMAANA ROSA ####[facility] Omtxpvgtmc7734 [place] [address]Dr. Garima Pulliam Chloride [Moles/Vol] 106 mmol/L Normal 98-107 [facility] Comment on above: Performed By: #### B AGRICULTURAL LENDER, MARVIN, CMADM ####[facility] Zgabyekprs[address] [place] [address]Dr. Garima Pulliam CO2 [Moles/Vol] 27.4 mmol/L Normal 21.0-32.0 [facility] Comment on above: Performed By: #### B AGRICULTURAL LENDERMARVIN CMAANA ROSA ####[facility] Ihmuswybsp5802 [place] [address]Dr. Garima Pulliam Creatinine [Mass/Vol] 0.65 mg/dL Critically low 0.70-1.30 [facility] Comment on above: Performed By: #### B AGRICULTURAL LENDER, MARVIN, CMADM ####[facility] Wkphgrelmr2276 [place] [address]Dr. Garima Pulliam EGFR-AF CAMEROONIAN >60 Normal >=60 [facility] Comment on above: Performed By: #### B AGRICULTURAL LENDERMARVIN, CMADM ####[facility] Msyqdsrpgs9036 [place] [address]Dr. Garima Pulliam EGFR-NON AF CAMEROONIAN >60 Normal >=60 [facility] Comment on above: Performed By: #### B AGRICULTURAL LENDER, MARVIN, CMADM ####[facility] Swgxotweec3321 [place] [address]Dr. Garima Pulliam Glucose [Mass/Vol] 140 mg/dL Critically high 74-106 [facility] Comment on above: Performed By: #### B AGRICULTURAL LENDER, MARVIN, CMADM ####[facility] Ifzuivgcyt0544 [place] [address]Dr. Garima Pulliam Potassium [Moles/Vol] 3.5 mmol/L Normal 3.5-5.1 [facility] Comment on above: Performed By: #### B AGRICULTURAL LENDER, MARVIN, CMADM ####[facility] Oancakdgkv8798 [place] [address]Dr. Garima Pulliam Sodium [Moles/Vol] 141 mmol/L Normal 136-145 [facility] Comment on above: Performed By: #### B AGRICULTURAL LENDER, BMP, CMADM ####[facility] Nfuxmpazvp7909 [place] [address]Dr. Garima Pulliam Urea nitrogen [Mass/Vol] 8.0 mg/dL Normal 7.0-18.0 [facility] Comment on above: Performed By: #### B AGRICULTURAL LENDER, BMP, CMADM ####[facility] Oozcdwuyyr0879 [place] [address]Dr. Garima Pulliam Urea nitrogen/Creatinine [Mass ratio] 12.3 mg/mg Normal [facility] Comment on above: Performed By: #### B AGRICULTURAL LENDER, BMP, CMADM ####[facility] Animatkjcs5741 [place] [address]Dr. Garima Pulliam CARDIAC NASH ADMITon 023 CK [Catalytic activity/Vol] 165 U/L Normal 39-308 [facility] Comment on above: Performed By: #### B MP, CMADM ####[facility] Tnkhtxyrta2667[address] [place], [place] [address]Dr. Garima Pulliam CK.MB [Mass/Vol] 6.48 ng/mL Critically high <=3.60 [facility] Comment on above: Performed By: #### B MP, CMADM ####[facility] Rhqxudykyy6694[address] [place], [place] [address]Dr. Garima Heraclio HSTROP 11.7 pg/mL Normal 4.0-76.1 [facility] Comment on above: Result Comment: CUT- OFF POINTS HAVE BEEN ESTABLISHED BASED ON THE FOURTH UNIVERSAL DEFINITIONS OF MYOCARDIALINFARCTION. THE UPPER REFERENCE LIMIT (URL) OF TROPONIN, DEFINED THE 99TH PERCENTILE OFcTnI DISTRIBUTION IN A REFERENCE POPULATION, HAS BEEN CONFIRMED THE DECISION THRESHOLDFOR PR DIAGNOSIS. Performed By: #### B MP, CMADM ####[facility] Nycuosbwek5772 [place] [address]Dr. Garima Pulliam DORIS 83 ng/mL Normal 16-96 [facility] Comment on above: Performed By: #### B MP, CMADM ####[facility] Obwnhnylxx8711 [place] [address]Dr. Garima Heraclio CBC AUTO DIFFon 12-10-2022 BASO # 0.0 103/ul Normal 0.0-0.1 [facility] Comment on above: Performed By: #### C BC ####[facility] Znklitawzq9[address] [place], [place] [address]Dr. Garima Pulliam Basophils/100 WBC (Bld) 0.3 % Normal 0.2-2.0 [facility] Comment on above: Performed By: #### C BC ####[facility] Vvpxsxcwce367[address] [place], [place] [address]Dr. Chapisrenu Pulliam EO # 0.1 103/ul Normal 0.0-0.7 [facility] Comment on above: Performed By: #### C BC ####[facility] Hileccnstg5147[address] [place], [place] [address]Dr. Garima Pulliam Eosinophils/100 WBC (Bld) 0.4 % Critically low 0.9-7.0 [facility] Comment on above: Performed By: #### C BC ####[facility] Quowoudvud8716[address] [place], [place] [address]Dr. Chapisrenu Pulliam Erythrocyte distribution width (RBC) [Ratio] 13.2 % Normal 11.0-15.0 [facility] Comment on above: Performed By: #### C BC ####[facility] Uvmgfjflmz6148[address] [place], [place] [address]Dr. Garima Pulliam Hematocrit (Bld) [Volume fraction] 42.4 % Normal 42.0-54.0 [facility] Comment on above: Performed By: #### C BC ####[facility] Jckhtvytmt8937[address] [place], [place] [address]Dr. Garima Pulliam Hemoglobin (Bld) [Mass/Vol] 14.4 g/dL Normal 14.0-18.0 [facility] Comment on above: Performed By: #### C BC ####[facility] Jcnhefvwcf865[address] [place], [place] [address]DrAdalberto Pulliam IG # 0.05 10e3/ul Critically high 0.00-0.03 [facility] Comment on above: Performed By: #### C BC ####[facility] Yllyjpqkgj4664 [place] [address]DrAdalberto Pulliam IG % 0.4 % Normal 0.0-0.5 [facility] Comment on above: Performed By: #### C BC ####[facility] Wdbdrcvqmp2395 [place] [address]DrAdalberto Pulliam LYMPH # 0.8 103/ul Critically low 1.2-3.8 [facility] Comment on above: Performed By: #### C BC ####[facility] Ggywaipxrr5258 [place] [address]DrAdalberto Pulliam Lymphocytes/100 WBC (Bld) 6.5 % Critically low 20.5-60.0 [facility] Comment on above: Performed By: #### C BC ####[facility] Sviunehocc1299[address] [place], [place] [address]DrAdalberto Pulliam MANUAL DIFF REQ NO Normal [facility] Comment on above: Performed By: #### C BC ####[facility] Pdrihwozqi693[address] [place], [place] [address]DrAdalberto Pulliam MCH (RBC) [Entitic mass] 30.5 pg Normal 25.9-34.0 [facility] Comment on above: Performed By: #### C BC ####[facility] Idukeubnsp3752[address] [place], [place] [address]DrAdalberto Pulliam MCHC (RBC) [Mass/Vol] 34.0 g/dL Normal 29.9-35.2 [facility] Comment on above: Performed By: #### C BC ####[facility] Pzezxnwvvv5009[address] [place], [place] [address]DrAdalberto Pulliam MCV (RBC) [Entitic vol] 89.8 fL Normal 80.0-94.0 [facility] Comment on above: Performed By: #### C BC ####[facility] Oadqjxcttb1297[address] [place], [place] [address]DrAdalberto Pulliam MONO # 0.2 103/ul Critically low 0.3-0.8 [facility] Comment on above: Performed By: #### C BC ####[facility] Wkuorqskea0612 [place] [address]Dr. Garima Pulliam Monocytes/100 WBC (Bld) 2.0 % Normal 1.7-12.0 [facility] Comment on above: Performed By: #### C BC ####[facility] Bmibrdvndf9251 [place] [address]Dr. Garima Pulliam NEUT # 10.5 103/ul Critically high 1.4-6.5 [facility] Comment on above: Performed By: #### C BC ####[facility] Msprzekwds[address] [place], [place] [address]Dr. Garima Heraclio Neutrophils/100 WBC (Bld) 90.4 % Critically high 43.0-75.0 [facility] Comment on above: Performed By: #### C BC ####[facility] Yvggctpust3907[address] [place], [place] [address]Dr. Garima Pulliam Platelet mean volume (Bld) [Entitic vol] 9.4 fL Critically low 9.5-13.5 [facility] Comment on above: Performed By: #### C BC ####[facility] Jesavjfjtl2983 [place] [address]Dr. Garima Pulliam PLT 198 103/ul Normal 150-450 [facility] Comment on above: Performed By: #### C BC ####[facility] Csfdduygbh0591 [place] [address]Dr. Garima Heraclio RBC 4.72 106/ul Normal 4.70-6.10 [facility] Comment on above: Performed By: #### C BC ####[facility] Oigozeoowp835[address] [place], [place] [address]DrAdalberto Nationrenu Heraclio WBC 11.6 103/ul Critically high 4.0-11.0 [facility] Comment on above: Performed By: #### C BC ####[facility] Lbyavoapdi042[address] [place], [place] [address]DrAdalberto Pulliam PROF CHEM 8 (BAS METB)on Anion gap [Moles/Vol] 11.3 mmol/L Normal Th [facility] [place] [facility] Comment on above: Performed By: #### B NANCY HERNANDEZ ####[facility] Ulzbjffiow1026 [place] [address]Dr. Garima Pulliam Calcium [Mass/Vol] 8.9 mg/dL Normal 8.5-10.1 [facility] Comment on above: Performed By: #### B NANCY HERNANDEZ ####[facility] Dxirnhgjqv9564 [place] [address]Dr. Chapisrenu Pulliam Chloride [Moles/Vol] 103 mmol/L Normal 98-107 [facility] Comment on above: Performed By: #### NANCY Larkin MP ####[facility] Cqgwilcyku[address] [place], [place] [address]Dr. Chapisrenu Pulliam CO2 [Moles/Vol] 28.2 mmol/L Normal 21.0-32.0 [facility] Comment on above: Performed By: #### NANCY Larkin MP ####[facility] Munflklucr6[address] [place], [place] [address]Dr. Garima Pulliam Creatinine [Mass/Vol] 0.60 mg/dL Critically low 0.70-1.30 [facility] Comment on above: Performed By: #### NANCY Larkin MP ####[facility] Rwneyatlkd624[address] [place], [place] [address]Dr. Garima Pulliam EGFR-AF CAMEROONIAN >60 Normal >=60 [facility] Comment on above: Performed By: #### NANCY Larkin MP ####[facility] Mcqnwnkzqd3258 [place] [address]Dr. Garima Pulliam EGFR-NON AF CAMEROONIAN >60 Normal >=60 [facility] Comment on above: Performed By: #### NANCY Larkin MP ####[facility] Zclkjvvhvw9100[address] [place], [place] [address]Dr. Garima Pulliam Glucose [Mass/Vol] 166 mg/dL Critically high 74-106 [facility] Comment on above: Performed By: #### NANCY Larkin MP ####[facility] Vbaqgfucpe5752 [place] [address]Dr. Chapisrenu Pulliam Potassium [Moles/Vol] 3.5 mmol/L Normal 3.5-5.1 [facility] Comment on above: Performed By: #### B NANCY HERNANDEZ ####[facility] Poiezgpcwp7049 [place] [address]Dr. Garima Pulliam Sodium [Moles/Vol] 139 mmol/L Normal 136-145 [facility] Comment on above: Performed By: #### B NANCY HERNANDEZ ####[facility] Skxkotvwre5[address] [place], [place] [address]Dr. Garima Pulliam Urea nitrogen [Mass/Vol] 9.0 mg/dL Normal 7.0-18.0 [facility] Comment on above: Performed By: #### B NANCY HERNANDEZ ####[facility] Whzxwurizr8[address] [place], [place] [address]Dr. Garima Pulliam Urea nitrogen/Creatinine [Mass ratio] 15.0 mg/mg Normal [facility] Comment on above: Performed By: #### B NANCY HERNANDEZ ####[facility] Eveljdjcac133[address] [place], [place] [address]Dr. Chapisrenu Pulliam XR CHEST 1 Von 12-10-2022 XR CHEST 1 V Normal [facility] BNPon 11-27-2022 Natriuretic peptide B (Bld) [Mass/Vol] 95.0 pg/mL Normal <=900.0 [facility] Comment on above: Performed By: #### C MP, HSTROPN, BNP ####[facility] Mfglpffing[address] [place], [place] [address]Dr. Garima Pulliam CBC AUTO DIFFon 11-27-2022 BASO # 0.0 103/ul Normal 0.0-0.1 [facility] Comment on above: Performed By: #### C BC ####[facility] Konsxdjpct7[address] [place], [place] [address]Dr. Garima Pulliam Basophils/100 WBC (Bld) 0.2 % Normal 0.2-2.0 [facility] Comment on above: Performed By: #### C BC ####[facility] Eqqcnvjjcn8768 [place] [id number]. Garima Pulliam EO # 0.2 103/ul Normal 0.0-0.7 [facility] Comment on above: Performed By: #### C BC ####[facility] Dfgysjbqmy4392 [place] [address]Dr. Garima Pulliam Eosinophils/100 WBC (Bld) 2.0 % Normal 0.9-7.0 [facility] Comment on above: Performed By: #### C BC ####[facility] Blmhqrtrvf9792 [place] [address]Dr. Garima Pulliam Erythrocyte distribution width (RBC) [Ratio] 13.2 % Normal 11.0-15.0 [facility] Comment on above: Performed By: #### C BC ####[facility] Oqkiuwhxwk59[address] [place], [place] [address]Dr. Garima Pulliam Hematocrit (Bld) [Volume fraction] 42.4 % Normal 42.0-54.0 [facility] Comment on above: Performed By: #### C BC ####[facility] Utwlivtxlg4455 [place] [address]Dr. Garima Pulliam Hemoglobin (Bld) [Mass/Vol] 14.4 g/dL Normal 14.0-18.0 [facility] Comment on above: Performed By: #### C BC ####[facility] Vgqptuysbo2094 [place] [address]Dr. Garima Pulliam IG # 0.04 10e3/ul Critically high 0.00-0.03 [facility] Comment on above: Performed By: #### C BC ####[facility] Letxyupmuc0228 [place] [address]Dr. Garima Pulliam IG % 0.4 % Normal 0.0-0.5 [facility] Comment on above: Performed By: #### C BC ####[facility] Witbduhvmw9511 [place] [address]Dr. Garima Pulliam LYMPH # 2.2 103/ul Normal 1.2-3.8 [facility] Comment on above: Performed By: #### C BC ####[facility] Knczfbkgpq7869 [place] [id number]. Garima Pulliam Lymphocytes/100 WBC (Bld) 21.5 % Normal 20.5-60.0 [facility] Comment on above: Performed By: #### C BC ####[facility] Nlfbyxkvoa0164 [place] [id number]. Garima Heraclio MANUAL DIFF REQ NO Normal [facility] Comment on above: Performed By: #### C BC ####[facility] Kprjxikbbn8963 [place] [address]Dr. Garima Heraclio MCH (RBC) [Entitic mass] 30.4 pg Normal 25.9-34.0 [facility] Comment on above: Performed By: #### C BC ####[facility] Xoxiqxwgkh1538 [place] [address]Dr. Garima Heraclio MCHC (RBC) [Mass/Vol] 34.0 g/dL Normal 29.9-35.2 [facility] Comment on above: Performed By: #### C BC ####[facility] Qznbtwcwix0386 [place] [address]Dr. Garima Heraclio MCV (RBC) [Entitic vol] 89.6 fL Normal 80.0-94.0 [facility] Comment on above: Performed By: #### C BC ####[facility] Ocdbziolui2[address] [place], [place] [address]Dr. Garima Pulliam MONO # 0.8 103/ul Normal 0.3-0.8 [facility] Comment on above: Performed By: #### C BC ####[facility] Yojuijblij6436 [place] [address]Dr. Chapisrenu Pulliam Monocytes/100 WBC (Bld) 7.7 % Normal 1.7-12.0 [facility] Comment on above: Performed By: #### C BC ####[facility] Ncjlvczrxz7804 [place] [address]Dr. Garima Pulliam NEUT # 7.0 103/ul Critically high 1.4-6.5 [facility] Comment on above: Performed By: #### C BC ####[facility] Sbfijncdyt0526 [place] [address]Dr. Garima Pulliam Neutrophils/100 WBC (Bld) 68.2 % Normal 43.0-75.0 [facility] Comment on above: Performed By: #### C BC ####[facility] Vrxmgopzdc0007 [place] [address]Dr. Chapisrenu Heraclio Platelet mean volume (Bld) [Entitic vol] 8.9 fL Critically low 9.5-13.5 [facility] Comment on above: Performed By: #### C BC ####[facility] Kaqebdwauk0261 [place] [address]Dr. Garima Pulliam PLT 222 103/ul Normal 150-450 [facility] Comment on above: Performed By: #### C BC ####[facility] Udgdjeqfac50[address] [place], [place] [address]Dr. Garima Pulliam RBC 4.73 106/ul Normal 4.70-6.10 [facility] Comment on above: Performed By: #### C BC ####[facility] Qhdckwqxvr8526[address] [place], [place] [address]Dr. Garima Pulliam WBC 10.3 103/ul Normal 4.0-11.0 [facility] Comment on above: Performed By: #### C BC ####[facility] Uuwhqkunyg6914[address] [place], [place] [address]Dr. Garima Pulliam PROF 14(COMP METB)on 023 Albumin [Mass/Vol] 3.7 g/dL Normal 3.4-5.0 [facility] Comment on above: Performed By: #### C MP, HSTROPN, BNP ####[facility] Bzupixxxhr1393 [place] [address]Dr. Garima Pulliam Albumin/Globulin [Mass ratio] 1.5 {ratio} Normal [facility] Comment on above: Performed By: #### C MP, HSTROPN, BNP ####[facility] Cebdptumue5664 [place] [address]Dr. Garima Pulliam ALP [Catalytic activity/Vol] 79 U/L Normal 46-116 [facility] Comment on above: Performed By: #### C MP, HSTROPN, BNP ####[facility] Hqlxttlaif3543 [place] [address]Dr. Garima Pulliam ALT [Catalytic activity/Vol] 32 U/L Normal 16-63 [facility] Comment on above: Performed By: #### C MP, HSTROPN, BNP ####[facility] Mozanlldii0714 [place] [address]Dr. Garima Pulliam Anion gap [Moles/Vol] 9.5 mmol/L Normal [facility] Comment on above: Performed By: #### C MP, HSTROPN, BNP ####[facility] Xdmezyikyf01[address] [place], [place] [address]Dr. Garima Pulliam AST [Catalytic activity/Vol] 25 U/L Normal 15-37 [facility] Comment on above: Performed By: #### C MP, HSTROPN, BNP ####[facility] Zyxqycmujl7366[address] [place], [place] [address]Dr. Garima Pulliam Bilirubin [Mass/Vol] 0.4 mg/dL Normal 0.2-1.0 [facility] Comment on above: Performed By: #### C MP, HSTROPN, BNP ####[facility] Jgwkqvxmze[address] [place], [place] [address]Dr. Garima Pulliam Calcium [Mass/Vol] 8.9 mg/dL Normal 8.5-10.1 [facility] Comment on above: Performed By: #### C MP, HSTROPN, BNP ####[facility] Rscyvfizeh9915[address] [place], [place] [address]Dr. Garima Pulliam Chloride [Moles/Vol] 103 mmol/L Normal 98-107 [facility] Comment on above: Performed By: #### C MP, HSTROPN, BNP ####[facility] Icywkunidz5034[address] [place], [place] [address]Dr. Garima Pulliam CO2 [Moles/Vol] 28.6 mmol/L Normal 21.0-32.0 [facility] Comment on above: Performed By: #### C MP, HSTROPN, BNP ####[facility] Kdphmedwaa7721 [place] [address]Dr. Garima Pulliam Creatinine [Mass/Vol] 0.72 mg/dL Normal 0.70-1.30 [facility] Comment on above: Performed By: #### C MP, HSTROPN, BNP ####[facility] Yryjenxcff8549 [place] [id number]. Garima Pulliam EGFR-AF CAMEROONIAN >60 Normal >=60 [facility] Comment on above: Performed By: #### C MP, HSTROPN, BNP ####[facility] Cklutnxcqb8877 [place] [address]Dr. Garima Pulliam EGFR-NON AF CAMEROONIAN >60 Normal >=60 [facility] Comment on above: Performed By: #### C MP, HSTROPN, BNP ####[facility] Tiwobnnayu4068 [place] [address]Dr. Garima Pulliam Globulin (S) [Mass/Vol] 2.5 g/dL Normal [facility] Comment on above: Performed By: #### C MP, HSTROPN, BNP ####[facility] Wufprvmtcb[address] [place], [place] [address]Dr. Garima Pulliam Glucose [Mass/Vol] 114 mg/dL Critically high 74-106 [facility] Comment on above: Performed By: #### C MP, HSTROPN, BNP ####[facility] Wrmhwaieef9190 [place] [address]Dr. Garima Pulliam Potassium [Moles/Vol] 4.1 mmol/L Normal 3.5-5.1 [facility] Comment on above: Performed By: #### C MP, HSTROPN, BNP ####[facility] Amccieegru7685 [place] [address]Dr. Garima Pulliam Protein [Mass/Vol] 6.2 g/dL Critically low 6.4-8.2 [facility] Comment on above: Performed By: #### C MP, HSTROPN, BNP ####[facility] Dwxvrhfsph[address] [place], [place] [address]Dr. Garima Pulliam Sodium [Moles/Vol] 137 mmol/L Normal 136-145 [facility] Comment on above: Performed By: #### C MP, HSTROPN, BNP ####[facility] [address]sfpkyox[address] [place] [address]Dr. Garima Pulliam Urea nitrogen [Mass/Vol] 13.0 mg/dL Normal 7.0-18.0 [facility] Comment on above: Performed By: #### C MP, HSTROPN, BNP ####[facility] Xtvdunhnmv[address] [place] [address]Dr. Garima Pulliam Urea nitrogen/Creatinine [Mass ratio] 18.1 mg/mg Normal [facility] Comment on above: Performed By: #### C MP, HSTROPN, BNP ####[facility] Oewotemkbj[address] [place] [address]Dr. Garima Pulliam TROPONIN, HIGH SENSITIVITYon 11-27-2022 HSTROP 11.8 pg/mL Normal 4.0-76.1 [facility] Comment on above: Result Comment: CUT- OFF POINTS HAVE BEEN ESTABLISHED BASED ON THE FOURTH UNIVERSAL DEFINITIONS OF MYOCARDIALINFARCTION. THE UPPER REFERENCE LIMIT (URL) OF TROPONIN, DEFINED THE 99TH PERCENTILE OFcTnI DISTRIBUTION IN A REFERENCE POPULATION, HAS BEEN CONFIRMED THE DECISION THRESHOLDFOR PR DIAGNOSIS. Performed By: #### C MP, HSTROPN, BNP ####[facility] Xkfhwavafd[address] [place], [place] [address]Dr. Garima Pulliam XR CHEST 1 Von 11-27-2022 XR CHEST 1 V Normal [facility] BNPon 11-20-2022 Natriuretic peptide B (Bld) [Mass/Vol] 73.0 pg/mL Normal <=900.0 [facility] Comment on above: Performed By: #### B MP, HSTROPN, BNP ####[facility] Dzcbrsjycf3[address] [place], [place] [address]Dr. Garima Pulliam CBC AUTO DIFFon 11-20-2022 BASO # 0.0 103/ul Normal 0.0-0.1 [facility] Comment on above: Performed By: #### C BC ####[facility] X[address] [place] [address]. Garima Pulliam Basophils/100 WBC (Bld) 0.3 % Normal 0.2-2.0 [facility] Comment on above: Performed By: #### C BC ####[facility] Cnpgznaaww58[address] [place] [address]Dr. Garima Pulliam EO # 0.2 103/ul Normal 0.0-0.7 [facility] Comment on above: Performed By: #### C BC ####[facility] Wcviogzbsl[address] [place], [place] [address]Dr. Garima Pulliam Eosinophils/100 WBC (Bld) 2.1 % Normal 0.9-7.0 [facility] Comment on above: Performed By: #### C BC ####[facility] Bwoowippvv47[address] [place], [place] [address]Dr. Garima Pulliam Erythrocyte distribution width (RBC) [Ratio] 13.2 % Normal 11.0-15.0 [facility] Comment on above: Performed By: #### C BC ####[facility] Cjacwpgxxb6[address] [place], [place] [address]Dr. Garima Pulliam Hematocrit (Bld) [Volume fraction] 43.4 % Normal 42.0-54.0 [facility] Comment on above: Performed By: #### C BC ####[facility] Psqlypdolc[address] [place], [place] [address]Dr. Garima Pulliam Hemoglobin (Bld) [Mass/Vol] 14.6 g/dL Normal 14.0-18.0 [facility] Comment on above: Performed By: #### C BC ####[facility] Nuzaqpwzlj88[address] [place], [place] [address]Dr. Garima Pulliam IG # 0.02 10e3/ul Normal 0.00-0.03 [facility] Comment on above: Performed By: #### C BC ####[facility] Ranevefwkd028[address] [place], [place] [address]Dr. Garima Pulliam IG % 0.2 % Normal 0.0-0.5 [facility] Comment on above: Performed By: #### C BC ####[facility] Mgvqlwnxvk14[address] [place] [id number]. Garima Heraclio LYMPH # 2.1 103/ul Normal 1.2-3.8 [facility] Comment on above: Performed By: #### C BC ####[facility] Ihhexxvwdu77[address] [place] [address]Dr. Garima Pulliam Lymphocytes/100 WBC (Bld) 19.2 % Critically low 20.5-60.0 [facility] Comment on above: Performed By: #### C BC ####[facility] Rcjzwmtfja28[address] [place] [address]Dr. Garima Pulliam MANUAL DIFF REQ NO Normal [facility] Comment on above: Performed By: #### C BC ####[facility] Yoyzbsmcgx39[address] [place] [address]Dr. Garima Pulliam MCH (RBC) [Entitic mass] 30.4 pg Normal 25.9-34.0 [facility] Comment on above: Performed By: #### C BC ####[facility] Irbwbntnix[address] [place], [place] [address]Dr. Garima Pulliam MCHC (RBC) [Mass/Vol] 33.6 g/dL Normal 29.9-35.2 [facility] Comment on above: Performed By: #### C BC ####[facility] Lbfzxtmsua14[address] [place] [address]Dr. Garima Pulliam MCV (RBC) [Entitic vol] 90.4 fL Normal 80.0-94.0 [facility] Comment on above: Performed By: #### C BC ####[facility] Qqgmkvbmln25[address] [place], [place] [address]Dr. Garima Pulliam MONO # 0.6 103/ul Normal 0.3-0.8 [facility] Comment on above: Performed By: #### C BC ####[facility] Xytcnpjrxq57[address] [place], [place] [address]Dr. Garima Pulliam Monocytes/100 WBC (Bld) 5.8 % Normal 1.7-12.0 [facility] Comment on above: Performed By: #### C BC ####[facility] J[address] [place] [address]Tg. Garima Pulliam NEUT # 7.8 103/ul Critically high 1.4-6.5 [facility] Comment on above: Performed By: #### C BC ####[facility] Luhgggjxkz29[address] [place] [phone]. Garima Pulliam Neutrophils/100 WBC (Bld) 72.4 % Normal 43.0-75.0 [facility] Comment on above: Performed By: #### C BC ####[facility] Mujrmjmynb6993 [place] [phone]. Garima Pulliam Platelet mean volume (Bld) [Entitic vol] 8.7 fL Critically low 9.5-13.5 [facility] Comment on above: Performed By: #### C BC ####[facility] Vybxafzpfq2145 [place] [phone]. Garima Pulliam PLT 184 103/ul Normal 150-450 [facility] Comment on above: Performed By: #### C BC ####[facility] Ifiowjdiql0364 [place] [phone]. Garima Pulliam RBC 4.80 106/ul Normal 4.70-6.10 [facility] Comment on above: Performed By: #### C BC ####[facility] Ntjbqesaij6724 [place] [phone]. Garima Pulliam WBC 10.8 103/ul Normal 4.0-11.0 [facility] Comment on above: Performed By: #### C BC ####[facility] Ccmvxpajfm53[address] [place] [address]Dr. Garima Pulliam [facility]24 SARS-CoV-2 (COVID-19) RNA MARIE+probe Ql (Unsp spec) Not detected Normal NOT DETECTED [facility] Comment on above: Result Comment: When diagnostic [...] for this test is supported by the Associate Data Scientist of Health and Human Service's declaration that [...] be used). Performed By: #### C VDTBH ####[facility] Xyuhvgjxbd[address] [place], [place] [address]Dr. Garima Pulliam INFLUENZA A AND B AGon 11-20 INFLUANE SEE BELOW Normal [facility] Comment on above: Result Comment: Nega tive for Flu A protein angiten. Infection due to Flu A cannot be ruled out. Flu A angiten in the sample may be below the detection limit of the test. Performed By: #### I NFLUAB ####[facility] Gvigmgfmnd[address] [place], [place] [address]Dr. Garima Pulliam INFLUBNEGH SEE BELOW Normal [facility] Comment on above: Result Comment: Nega tive for Flu B protein antigen. Infection due to Flu B cannot be ruled out. Flu B antigen in the sample may be below the detection limit of the test. Performed By: #### I NFLUAB ####[facility] Ohssnzxksn[address] [place], [place] [address]Dr. Garima Pulliam INFLUENZA A AG Negative Normal NEGATIVE SEE COMMENT [facility] Comment on above: Performed By: #### I NFLUAB ####[facility] Recdcmrbju17[address] [place], [place] [address]Dr. Garima Pulliam INFLUENZA B AG Negative Normal NEGATIVE SEE COMMENT [facility] Comment on above: Performed By: #### I NFLUAB ####[facility] Gvgfnmqevp12[address] [place], [place] [address]Dr. Garima Pulliam PROF CHEM 8 (BAS METB)on Anion gap [Moles/Vol] 8.2 mmol/L Normal [facility] Comment on above: Performed By: #### B MP, HSTROPN, BNP ####[facility] Gjoallpzhj[address] [place] [address]Dr. Graima Pulliam Calcium [Mass/Vol] 8.7 mg/dL Normal 8.5-10.1 [facility] Comment on above: Performed By: #### B MP, HSTROPN, BNP ####[facility] Pyggbhndpg5[address] [place] [address]Dr. Garima Pulliam Chloride [Moles/Vol] 103 mmol/L Normal 98-107 [facility] Comment on above: Performed By: #### B MP, HSTROPN, BNP ####[facility] Eqisvuuetr9393 [place] [address]Dr. Garima Pulliam CO2 [Moles/Vol] 29.4 mmol/L Normal 21.0-32.0 [facility] Comment on above: Performed By: #### B MP, HSTROPN, BNP ####[facility] Rfkehseepq[address] [place], [place] [address]Dr. Garima Pulliam Creatinine [Mass/Vol] 0.69 mg/dL Critically low 0.70-1.30 [facility] Comment on above: Performed By: #### B MP, HSTROPN, BNP ####[facility] Vzqqdedcgp[address] [place] [address]Dr. Garima Pulliam EGFR-AF CAMEROONIAN >60 Normal >=60 [facility] Comment on above: Performed By: #### B MP, HSTROPN, BNP ####[facility] Pqpfxhypnb7823 [place] [address]Dr. Garima Pulliam EGFR-NON AF CAMEROONIAN >60 Normal >=60 [facility] Comment on above: Performed By: #### B MP, HSTROPN, BNP ####[facility] Zapzffjuky5[address] [place] [address]Dr. Garima Pulliam Glucose [Mass/Vol] 209 mg/dL Critically high 74-106 [facility] Comment on above: Performed By: #### B MP, HSTROPN, BNP ####[facility] Cltztaozln7213 [place] [address]Dr. Garima Pulliam Potassium [Moles/Vol] 3.6 mmol/L Normal 3.5-5.1 [facility] Comment on above: Performed By: #### B MP, HSTROPN, BNP ####[facility] Jzolduxhlt5469 [place] [address]Dr. Garima Pulliam Sodium [Moles/Vol] 137 mmol/L Normal 136-145 [facility] Comment on above: Performed By: #### B MP, HSTROPN, BNP ####[facility] Dmldaxoukl2440 [place] [address]Dr. Garima Pulliam Urea nitrogen [Mass/Vol] 11.0 mg/dL Normal 7.0-18.0 [facility] Comment on above: Performed By: #### B MP, HSTROPN, BNP ####[facility] Corxyqyhso30[address] [place] [address]Dr. Garima Pulliam Urea nitrogen/Creatinine [Mass ratio] 15.9 mg/mg Normal [facility] Comment on above: Performed By: #### B MP, HSTROPN, BNP ####[facility] Jgndwqesbn38[address] [place] [address]Dr. Garima Pulliam TROPONIN, HIGH SENSITIVITYon 11-20-2022 HSTROP 8.7 pg/mL Normal 4.0-76.1 [facility] Comment on above: Result Comment: CUT- OFF POINTS HAVE BEEN ESTABLISHED BASED ON THE FOURTH UNIVERSAL DEFINITIONS OF MYOCARDIALINFARCTION. THE UPPER REFERENCE LIMIT (URL) OF TROPONIN, DEFINED THE 99TH PERCENTILE OFcTnI DISTRIBUTION IN A REFERENCE POPULATION, HAS BEEN CONFIRMED THE DECISION THRESHOLDFOR PR DIAGNOSIS. Performed By: #### B MP, HSTROPN, BNP ####[facility] Cjlhamzmzw[address] [place], [place] [address]Dr. Garima Pulliam XR CHEST 1 Von 11-20-2022 XR CHEST 1 V Normal [facility] XR CHEST 1 Von 10-02-2022 XR CHEST 1 V Normal [facility] BNPon 09-29-2022 Natriuretic peptide B (Bld) [Mass/Vol] 107.0 pg/mL Normal <=900.0 [facility] Comment on above: Performed By: #### C MP, BNP, CMADM ####[facility] Arwxyjzbee[address] [place] [address]Dr. Garima Heraclio CARDIAC NASH ADMITon 022 CK [Catalytic activity/Vol] 190 U/L Normal 39-308 [facility] Comment on above: Performed By: #### C MP, BNP, CMADM ####[facility] Zlzllhaesg90[address] [place] [address]Dr. Garima Pulliam CK.MB [Mass/Vol] 11.11 ng/mL Critically high <=3.60 [facility] e [facility] Comment on above: Performed By: #### C MP, BNP, CMADM ####[facility] Mbketfgxdh6082 [place] [address]Dr. Garima Heraclio HSTROP 11.8 pg/mL Normal 4.0-76.1 [facility] Comment on above: Result Comment: CUT- OFF POINTS HAVE BEEN ESTABLISHED BASED ON THE FOURTH UNIVERSAL DEFINITIONS OF MYOCARDIALINFARCTION. THE UPPER REFERENCE LIMIT (URL) OF TROPONIN, DEFINED THE 99TH PERCENTILE OFcTnI DISTRIBUTION IN A REFERENCE POPULATION, HAS BEEN CONFIRMED THE DECISION THRESHOLDFOR PR DIAGNOSIS. Performed By: #### C MP, BNP, CMADM ####[facility] Obfcxinwjy9[address] [place] [address]Dr. Garima Pulliam DORIS 133 ng/mL Critically high 16-96 [facility] Comment on above: Performed By: #### C MP, BNP, CMADM ####[facility] Wygnmollwq2119 [place] [address]Dr. Garima Pulliam CBC AUTO DIFFon 09-29-2022 BASO # 0.0 103/ul Normal 0.0-0.1 [facility] Comment on above: Performed By: #### C BC ####[facility] Xzxtrnlvlo3[address] [place] [address]Dr. Garima Pulliam Basophils/100 WBC (Bld) 0.2 % Normal 0.2-2.0 [facility] Comment on above: Performed By: #### C BC ####[facility] Dvowlvndev1763 [place] [phone]. Garima Pulliam EO # 0.1 103/ul Normal 0.0-0.7 [facility] Comment on above: Performed By: #### C BC ####[facility] Tkvklaiepu4964 [place] [address]Dr. Garima Pulliam Eosinophils/100 WBC (Bld) 1.4 % Normal 0.9-7.0 [facility] Comment on above: Performed By: #### C BC ####[facility] Miskeaqkpb6[address] [place], [place] [address]Dr. Garima Pulliam Erythrocyte distribution width (RBC) [Ratio] 13.7 % Normal 11.0-15.0 [facility] Comment on above: Performed By: #### C BC ####[facility] Elgzscadxt[address] [place], [place] [address]Dr. Garima Pulliam Hematocrit (Bld) [Volume fraction] 45.4 % Normal 42.0-54.0 [facility] Comment on above: Performed By: #### C BC ####[facility] Mgbuwskjdr[address] [place], [place] [address]Dr. Garima Pulliam Hemoglobin (Bld) [Mass/Vol] 14.8 g/dL Normal 14.0-18.0 [facility] Comment on above: Performed By: #### C BC ####[facility] Fpmanhbcrv5353 [place] [address]Dr. Garima Pulliam IG # 0.04 10e3/ul Critically high 0.00-0.03 [facility] Comment on above: Performed By: #### C BC ####[facility] Wtccpqehoz[address] [place], [place] [address]Dr. Garima Pulliam IG % 0.5 % Normal 0.0-0.5 [facility] Comment on above: Performed By: #### C BC ####[facility] Zuthiqosws9[address] [place], [place] [address]Dr. Garima Pulliam LYMPH # 1.1 103/ul Critically low 1.2-3.8 [facility] Comment on above: Performed By: #### C BC ####[facility] Gdhjjyflej7638 [place] [id number]. Garima Pulliam Lymphocytes/100 WBC (Bld) 12.7 % Critically low 20.5-60.0 [facility] Comment on above: Performed By: #### C BC ####[facility] Ogqgczrhmr9966 [place] [phone]. Garima Heraclio MANUAL DIFF REQ NO Normal [facility] Comment on above: Performed By: #### C BC ####[facility] Jcidhdbzdk4119 [place] [phone]. Garima Heraclio MCH (RBC) [Entitic mass] 30.0 pg Normal 25.9-34.0 [facility] Comment on above: Performed By: #### C BC ####[facility] Gybjlcgmiw5541 [place] [address]Dr. Garima Heraclio MCHC (RBC) [Mass/Vol] 32.6 g/dL Normal 29.9-35.2 [facility] Comment on above: Performed By: #### C BC ####[facility] Adhwyrybor6399 [place] [phone]. Garima Heraclio MCV (RBC) [Entitic vol] 91.9 fL Normal 80.0-94.0 [facility] Comment on above: Performed By: #### C BC ####[facility] Yijwekvgob3984 [place] [address]Dr. Chapisrenu Heraclio MONO # 0.4 103/ul Normal 0.3-0.8 [facility] Comment on above: Performed By: #### C BC ####[facility] Oqfblpwcou9433 [place] [phone]. Garima Heraclio Monocytes/100 WBC (Bld) 4.8 % Normal 1.7-12.0 [facility] Comment on above: Performed By: #### C BC ####[facility] Elynkcvfuv8[address] [place], [place] [address]Dr. Garima Pulliam NEUT # 7.1 103/ul Critically high 1.4-6.5 [facility] Comment on above: Performed By: #### C BC ####[facility] Dlgbomxuvl9788 [place] [phone]. Garima Pulliam Neutrophils/100 WBC (Bld) 80.4 % Critically high 43.0-75.0 [facility] Comment on above: Performed By: #### C BC ####[facility] Rjonfccfrz7791 [place] [phone]. Garima Pulliam Platelet mean volume (Bld) [Entitic vol] 9.1 fL Critically low 9.5-13.5 [facility] Comment on above: Performed By: #### C BC ####[facility] Oczhltvwts0768 [place] [phone]. Garima Pulliam PLT 200 103/ul Normal 150-450 [facility] Comment on above: Performed By: #### C BC ####[facility] Qbzsqzcwru5327 [place] [phone]. Garima Pulliam RBC 4.94 106/ul Normal 4.70-6.10 [facility] Comment on above: Performed By: #### C BC ####[facility] Yxmpmwvpoc8181 [place] [phone]. Garima Pulliam WBC 8.9 103/ul Normal 4.0-11.0 [facility] Comment on above: Performed By: #### C BC ####[facility] Phtslxzoiz3049 [place] [phone]. Garima Pulliam [facility]on SARS-CoV-2 (COVID-19) RNA MARIE+probe Ql (Unsp spec) Not detected Normal NOT DETECTED [facility] Comment on above: Result Comment: When diagnostic [...] for this test is supported by the Associate Data Scientist of Health and Human Service's declaration that [...] be used). Performed By: #### C VDTBH ####[facility] Wugynfrzzd6[address] [place] [address]Dr. Garima Pulliam LACTATE/LACTIC ACIDon 2021 Lactate [Moles/Vol] 1.7 mmol/L Normal 0.4-1.9 [facility] Comment on above: Performed By: #### L ACT ####[facility] Enzpctjdst[address] [place], [place] [address]Dr. Garima Pulliam PROF 14(COMP METB)on 022 Albumin [Mass/Vol] 3.8 g/dL Normal 3.4-5.0 [facility] Comment on above: Performed By: #### C MP, BNP, CMADM ####[facility] Kqdltowolg2856 [place] [address]Dr. Garima Pulliam Albumin/Globulin [Mass ratio] 1.5 {ratio} Normal [facility] Comment on above: Performed By: #### C MP, BNP, CMADM ####[facility] Oseupxxvbi2651 [place] [address]Dr. Garima Pulliam ALP [Catalytic activity/Vol] 62 U/L Normal 46-116 [facility] Comment on above: Performed By: #### C MP, BNP, CMADM ####[facility] Elielzeiyg9441 [place] [address]Dr. Garima Pulliam ALT [Catalytic activity/Vol] 37 U/L Normal 16-63 [facility] Comment on above: Performed By: #### C MP, BNP, CMADM ####[facility] Gvqivdenpi4436 [place] [address]Dr. Garima Pulliam Anion gap [Moles/Vol] 8.0 mmol/L Normal [facility] Comment on above: Performed By: #### C MP, BNP, CMADM ####[facility] Kskfucjebl6251 [place] [address]Dr. Garima Pulliam AST [Catalytic activity/Vol] 20 U/L Normal 15-37 [facility] Comment on above: Performed By: #### C MP, BNP, CMADM ####[facility] Cbjlxraqyy8518 [place] [address]Dr. Garima Pulliam Bilirubin [Mass/Vol] 0.6 mg/dL Normal 0.2-1.0 [facility] Comment on above: Performed By: #### C MP, BNP, CMADM ####[facility] Qddbcmejoe0060 [place] [address]Dr. Garima Pulliam Calcium [Mass/Vol] 9.1 mg/dL Normal 8.5-10.1 [facility] Comment on above: Performed By: #### C MP, BNP, CMADM ####[facility] Evzyefzmgw40[address] [place], [place] [address]Dr. Garima Pulliam Chloride [Moles/Vol] 103 mmol/L Normal 98-107 [facility] Comment on above: Performed By: #### C MP, BNP, CMADM ####[facility] Lveeznumrc7[address] [place], [place] [address]Dr. Garima Pulliam CO2 [Moles/Vol] 31.8 mmol/L Normal 21.0-32.0 [facility] Comment on above: Performed By: #### C MP, BNP, CMADM ####[facility] Tiulbdkteo[address] [place], [place] [address]Dr. Garima Pulliam Creatinine [Mass/Vol] 0.63 mg/dL Critically low 0.70-1.30 [facility] Comment on above: Performed By: #### C MP, BNP, CMADM ####[facility] Hzbkubrscs9[address] [place], [place] [address]Dr. Garima Pulliam EGFR-AF CAMEROONIAN >60 Normal >=60 [facility] Comment on above: Performed By: #### C MP, BNP, CMADM ####[facility] Gvovgvlivq[address] [place], [place] [address]Dr. Yilan Pulliam EGFR-NON AF CAMEROONIAN >60 Normal >=60 [facility] Comment on above: Performed By: #### C MP, BNP, CMADM ####[facility] Vgyynsolth4774 [place] [address]Dr. Garima Pulliam Globulin (S) [Mass/Vol] 2.6 g/dL Normal [facility] Comment on above: Performed By: #### C MP, BNP, CMADM ####[facility] Casmqmmtci0895 [place] [address]Dr. Garima Pulliam Glucose [Mass/Vol] 103 mg/dL Normal 74-106 [facility] Comment on above: Performed By: #### C MP, BNP, CMADM ####[facility] Mgkelnrusf1869 [place] [address]Dr. Garima Pulliam Potassium [Moles/Vol] 3.8 mmol/L Normal 3.5-5.1 [facility] Comment on above: Performed By: #### C MP, BNP, CMADM ####[facility] Dflqebtmjj7081 [place] [address]Dr. Garima Pulliam Protein [Mass/Vol] 6.4 g/dL Normal 6.4-8.2 [facility] Comment on above: Performed By: #### C MP, BNP, CMADM ####[facility] Ptcykxbdmj6124 [place] [address]Dr. Garima Pulliam Sodium [Moles/Vol] 139 mmol/L Normal 136-145 [facility] Comment on above: Performed By: #### C MP, BNP, CMADM ####[facility] Jvydxozrtu3387 [place] [address]Dr. Garima Pulliam Urea nitrogen [Mass/Vol] 7.0 mg/dL Normal 7.0-18.0 [facility] Comment on above: Performed By: #### C MP, BNP, CMADM ####[facility] Undierddai2183 [place] [address]Dr. Garima Pulliam Urea nitrogen/Creatinine [Mass ratio] 11.1 mg/mg Normal [facility] Comment on above: Performed By: #### C MP, BNP, CMADM ####[facility] Wubypzhqyb3767 [place] [address]Dr. Garima Pulliam PROTIMEon 09-29-2022 INR Coag (PPP) [Relative time] 1.14 {INR} Normal [facility] Comment on above: Performed By: #### P T, PTT ####[facility] Duidbtwvvr2253 [place] [address]Dr. Garima Pulliam INR GUIDELINES SEE BELOW Normal [facility] Comment on above: Result Comment: WESLEY RED INR: 2.0 - 3.0 CONDITIONS NOT LISTED BELOW 2.5 - 3.5 FOR PROSTHETIC HEART VALVE REPLACEMENT 2.5 - 3.5 RECURRENT THROMBOSIS Performed By: #### P T, PTT ####[facility] Zrbjtqxrat[address] [place], [place] [address]Dr. Garima Pulliam PT Coag (PPP) [Time] 12.2 s Critically high 9.0-11.6 [facility] Comment on above: Performed By: #### P T, PTT ####[facility] Vowtvhdgkk89[address] [place], [place] [address]Dr. Garima Pulliam PTTon 09-29-2022 aPTT Coag (Bld) [Time] 29.3 s Normal 22.3-36.2 [facility] Comment on above: Performed By: #### P T, PTT ####[facility] Pcgbnovvpt5263[address] [place], [place] [address]Dr. Garima Pulliam XR CHEST 1 Von 09-29-2022 XR CHEST 1 V Normal [facility] CBC AUTO DIFFon 09-26-2022 BASO # 0.0 103/ul Normal 0.0-0.1 [facility] Comment on above: Performed By: #### C BC ####[facility] Ucbffsolqk[address] [place], [place] [address]Dr. Garima Pulliam Basophils/100 WBC (Bld) 0.2 % Normal 0.2-2.0 [facility] Comment on above: Performed By: #### C BC ####[facility] Dxkxysmtiw9167[address] [place], [place] [address]Dr. Garima Pulliam EO # 0.1 103/ul Normal 0.0-0.7 [facility] Comment on above: Performed By: #### C BC ####[facility] Phrqcpiokk[address] [place] [address]Dr. Garima Pulliam Eosinophils/100 WBC (Bld) 1.0 % Normal 0.9-7.0 [facility] Comment on above: Performed By: #### C BC ####[facility] Offjjzojoy9086[address] [place], [place] [address]Dr. Garima Pulliam Erythrocyte distribution width (RBC) [Ratio] 13.4 % Normal 11.0-15.0 [facility] Comment on above: Performed By: #### C BC ####[facility] Mzwzwyksrf8655[address] [place], [place] [address]Dr. Garima Pulliam Hematocrit (Bld) [Volume fraction] 46.3 % Normal 42.0-54.0 [facility] Comment on above: Performed By: #### C BC ####[facility] Wusvwezpkg6386[address] [place], [place] [address]Dr. Garima Pulliam Hemoglobin (Bld) [Mass/Vol] 15.3 g/dL Normal 14.0-18.0 [facility] Comment on above: Performed By: #### C BC ####[facility] Vvtfzlkaiw9309[address] [place], [place] [address]Dr. Garima Pulliam IG # 0.05 10e3/ul Critically high 0.00-0.03 [facility] Comment on above: Performed By: #### C BC ####[facility] Qvryqclfxv4367[address] [place], [place] [address]Dr. Garima Pulliam IG % 0.4 % Normal 0.0-0.5 [facility] Comment on above: Performed By: #### C BC ####[facility] Kgliluzkqd6411[address] [place], [place] [address]DrAdalberto Garima Hreaclio LYMPH # 1.7 103/ul Normal 1.2-3.8 [facility] Comment on above: Performed By: #### C BC ####[facility] Jjqjkglbxy1628[address] [place], [place] [address]Dr. Garima Heraclio Lymphocytes/100 WBC (Bld) 12.7 % Critically low 20.5-60.0 [facility] Comment on above: Performed By: #### C BC ####[facility] Ntpeczzsqc38[address] [place] [address]DrAdalberto Pulliam MANUAL DIFF REQ NO Normal [facility] Comment on above: Performed By: #### C BC ####[facility] Dlobjublnl1095 [place] [address]Dr. Garima Pulliam MCH (RBC) [Entitic mass] 30.1 pg Normal 25.9-34.0 [facility] Comment on above: Performed By: #### C BC ####[facility] Vycytmlkwj8562[address] [place], [place] [address]Dr. Garima Pulliam MCHC (RBC) [Mass/Vol] 33.0 g/dL Normal 29.9-35.2 [facility] Comment on above: Performed By: #### C BC ####[facility] Zdvwiojthl24[address] [place], [place] [address]DrAdalberto Pulliam MCV (RBC) [Entitic vol] 91.1 fL Normal 80.0-94.0 [facility] Comment on above: Performed By: #### C BC ####[facility] Esrhvisjth8255[address] [place], [place] [address]DrAdalberto Pulliam MONO # 0.9 103/ul Critically high 0.3-0.8 [facility] Comment on above: Performed By: #### C BC ####[facility] Uxlcsryiim32[address] [place], [place] [address]DrAdalberto Pulliam Monocytes/100 WBC (Bld) 7.0 % Normal 1.7-12.0 [facility] Comment on above: Performed By: #### C BC ####[facility] Tdziajxkso8[address] [place], [place] [address]DrAdalberto Pulliam NEUT # 10.4 103/ul Critically high 1.4-6.5 [facility] Comment on above: Performed By: #### C BC ####[facility] Qjensduifq2237[address] [place], [place] [address]DrAdalberto Pulliam Neutrophils/100 WBC (Bld) 78.7 % Critically high 43.0-75.0 [facility] Comment on above: Performed By: #### C BC ####[facility] Nyssdssuao4119 [place] [address]DrAdalberto Pulliam Platelet mean volume (Bld) [Entitic vol] 8.9 fL Critically low 9.5-13.5 [facility] Comment on above: Performed By: #### C BC ####[facility] Jlvnyyantf7245 [place] [address]Dr. Garima Pulliam PLT 195 103/ul Normal 150-450 [facility] Comment on above: Performed By: #### C BC ####[facility] Rnsvfhlznn040[address] [place], [place] [address]Dr. Garima Pulliam RBC 5.08 106/ul Normal 4.70-6.10 [facility] Comment on above: Performed By: #### C BC ####[facility] Hxuafktjph8315 [place] [address]DrAdalberto Pulliam WBC 13.2 103/ul Critically high 4.0-11.0 [facility] Comment on above: Performed By: #### C BC ####[facility] Shhvpjohkn8356[address] [place], [place] [address]DrAdalberto Pulliam PROF 14(COMP METB)on 022 Albumin [Mass/Vol] 3.5 g/dL Normal 3.4-5.0 [facility] Comment on above: Performed By: #### C DAVID HSTROPN ####[facility] Byujuvwigo15[address] [place] [address]DrAdalberto Pulliam Albumin/Globulin [Mass ratio] 1.2 {ratio} Normal [facility] Comment on above: Performed By: #### C RAFAT HERNANDEZTROPN ####[facility] Awssadwwoi57[address] [place] [address]DrAdalberto Pulliam ALP [Catalytic activity/Vol] 71 U/L Normal 46-116 [facility] Comment on above: Performed By: #### C RAFAT HERNANDEZTROPN ####[facility] Paofdeutsv7324[address] [place], [place] [address]Dr. Garima Pulliam ALT [Catalytic activity/Vol] 37 U/L Normal 16-63 [facility] Comment on above: Performed By: #### C DAVID, HSTROPN ####[facility] Huyykgcewx20[address] [place] [address]Dr. Garima Pulliam Anion gap [Moles/Vol] 4.8 mmol/L Normal [facility] Comment on above: Performed By: #### C DAVID, HSTROPN ####[facility] Igkmcfjgum8310 [place] [address]Dr. Garima Pulliam AST [Catalytic activity/Vol] 21 U/L Normal 15-37 [facility] Comment on above: Performed By: #### C DAVID, HSTROPN ####[facility] Buxzytdhvz2119 [place] [address]Dr. Garima Pulliam Bilirubin [Mass/Vol] 0.3 mg/dL Normal 0.2-1.0 [facility] Comment on above: Performed By: #### C DAVID, HSTROPN ####[facility] Xfihhcwnfw4[address] [place], [place] [address]Dr. Garima Pulliam Calcium [Mass/Vol] 8.9 mg/dL Normal 8.5-10.1 [facility] Comment on above: Performed By: #### C DAVID, HSTROPN ####[facility] Qjmtcucuxm[address] [place] [address]Dr. Garima Pulliam Chloride [Moles/Vol] 106 mmol/L Normal 98-107 [facility] Comment on above: Performed By: #### C DAVID, HSTROPN ####[facility] Amdgzkgxjp4237 [place] [address]Dr. Garima Pulliam CO2 [Moles/Vol] 29.8 mmol/L Normal 21.0-32.0 [facility] Comment on above: Performed By: #### C DAVID, HSTROPN ####[facility] Nlxsvcoqel0260 [place] [address]Dr. Garima Pulliam Creatinine [Mass/Vol] 0.68 mg/dL Critically low 0.70-1.30 [facility] Comment on above: Performed By: #### C MP, HSTROPN ####[facility] Zhylhkkqgj5572 [place] [address]Dr. Chapislan Pulliam EGFR-AF CAMEROONIAN >60 Normal >=60 [facility] Comment on above: Performed By: #### C MP, HSTROPN ####[facility] Rncpvpjqfm8377 [place] [id number]. Yirenu Pulliam EGFR-NON AF CAMEROONIAN >60 Normal >=60 [facility] Comment on above: Performed By: #### C MP, HSTROPN ####[facility] Yxlspoabok30[address] [place] [address]Dr. Garima Pulliam Globulin (S) [Mass/Vol] 2.8 g/dL Normal [facility] Comment on above: Performed By: #### C MP, HSTROPN ####[facility] Ovgdmyvkmg2439 [place] [address]Dr. Chapisrenu Pulliam Glucose [Mass/Vol] 133 mg/dL Critically high 74-106 [facility] Comment on above: Performed By: #### C MP, HSTROPN ####[facility] Efrrfdtoap9658 [place] [address]Dr. Chapisrenu Pulliam Potassium [Moles/Vol] 3.6 mmol/L Normal 3.5-5.1 [facility] Comment on above: Performed By: #### C MP, HSTROPN ####[facility] Imoacrwxte6167 [place] [address]Dr. Chapislan Pulliam Protein [Mass/Vol] 6.3 g/dL Critically low 6.4-8.2 [facility] Comment on above: Performed By: #### C MP, HSTROPN ####[facility] Zyzcmapqzr1547 [place] [address]Dr. Garima Pulliam Sodium [Moles/Vol] 137 mmol/L Normal 136-145 [facility] Comment on above: Performed By: #### C MP, HSTROPN ####[facility] Ivvqwfvnsg0449 [place] [address]Dr. Yilan Pulliam Urea nitrogen [Mass/Vol] 15.0 mg/dL Normal 7.0-18.0 [facility] Comment on above: Performed By: #### C DAVID HSTROPN ####[facility] Cuhvomgnif09[address] [place] [address]Dr. Chapisrenu Pulliam Urea nitrogen/Creatinine [Mass ratio] 22.1 mg/mg Normal [facility] Comment on above: Performed By: #### C DAVID HSTROPN ####[facility] Pzdmhhtgbd4[address] [place] [address]Dr. Chapisrenu Pulliam TROPONIN, HIGH SENSITIVITYon 09-26-2022 HSTROP 12.8 pg/mL Normal 4.0-76.1 [facility] Comment on above: Result Comment: CUT- OFF POINTS HAVE BEEN ESTABLISHED BASED ON THE FOURTH UNIVERSAL DEFINITIONS OF MYOCARDIALINFARCTION. THE UPPER REFERENCE LIMIT (URL) OF TROPONIN, DEFINED THE 99TH PERCENTILE OFcTnI DISTRIBUTION IN A REFERENCE POPULATION, HAS BEEN CONFIRMED THE DECISION THRESHOLDFOR PR DIAGNOSIS. Performed By: #### C DAVID HSTROPN ####[facility] Tpntrcojgg8397[address] [place], [place] [address]Dr. Chapisrenu Pulliam XR CHEST 1 Von 09-26-2022 XR CHEST 1 V Normal [facility] XR CHEST 1 Von 09-16-2022 XR CHEST 1 V Normal [facility] CBC AUTO DIFFon 09-15-2022 BASO # 0.0 103/ul Normal 0.0-0.1 [facility] Comment on above: Performed By: #### C BC ####[facility] Mqnhyhyrlx6475 [place] [address]Dr. Chapisrenu Pulliam Basophils/100 WBC (Bld) 0.1 % Critically low 0.2-2.0 [facility] Comment on above: Performed By: #### C BC ####[facility] Dmdjvyclcd4932 [place] [address]Dr. Garima Pulliam EO # 0.0 103/ul Normal 0.0-0.7 [facility] Comment on above: Performed By: #### C BC ####[facility] Lsyahgtndq6435 [place] [address]Dr. Garima Pulliam Eosinophils/100 WBC (Bld) 0.1 % Critically low 0.9-7.0 [facility] Comment on above: Performed By: #### C BC ####[facility] Hjvlacjazq0930 [place] [address]Dr. Garima Pulliam Erythrocyte distribution width (RBC) [Ratio] 14.1 % Normal 11.0-15.0 [facility] Comment on above: Performed By: #### C BC ####[facility] Wafxyjrnzk7633[address] [place], [place] [address]Dr. Garima Pulliam Hematocrit (Bld) [Volume fraction] 46.1 % Normal 42.0-54.0 [facility] Comment on above: Performed By: #### C BC ####[facility] Momhfdbmoo5197[address] [place], [place] [address]Dr. Garima Pulliam Hemoglobin (Bld) [Mass/Vol] 15.0 g/dL Normal 14.0-18.0 [facility] Comment on above: Performed By: #### C BC ####[facility] Drjofcxrpw[address] [place], [place] [address]Dr. Garima Pulliam IG # 0.03 10e3/ul Normal 0.00-0.03 [facility] Comment on above: Performed By: #### C BC ####[facility] Odnbvchuon[address] [place], [place] [address]Dr. Garima Pulliam IG % 0.3 % Normal 0.0-0.5 [facility] Comment on above: Performed By: #### C BC ####[facility] Vgqabhyjno55[address] [place] [address]Dr. Garima Pulliam LYMPH # 0.6 103/ul Critically low 1.2-3.8 [facility] Comment on above: Performed By: #### C BC ####[facility] Hjnjnandfu2703[address] [place], [place] [address]Dr. Garima Pulliam Lymphocytes/100 WBC (Bld) 5.8 % Critically low 20.5-60.0 [facility] Comment on above: Performed By: #### C BC ####[facility] Hlwrgbxhjj3743 [place] [address]Dr. Garima Pulliam MANUAL DIFF REQ NO Normal [facility] Comment on above: Performed By: #### C BC ####[facility] Shpfrazezc8240 [place] [address]Dr. Garima Pulliam MCH (RBC) [Entitic mass] 30.2 pg Normal 25.9-34.0 [facility] Comment on above: Performed By: #### C BC ####[facility] Ahsylsxskq4408 [place] [address]Dr. Garima Pulliam MCHC (RBC) [Mass/Vol] 32.5 g/dL Normal 29.9-35.2 [facility] Comment on above: Performed By: #### C BC ####[facility] Aqszuhdkvl2284[address] [place], [place] [address]Dr. Garima Heraclio MCV (RBC) [Entitic vol] 92.8 fL Normal 80.0-94.0 [facility] Comment on above: Performed By: #### C BC ####[facility] Uauzmzwivd134[address] [place], [place] [address]Dr. Garima Heraclio MONO # 0.3 103/ul Normal 0.3-0.8 [facility] Comment on above: Performed By: #### C BC ####[facility] Vwpldqdvme3611 [place] [address]Dr. Chapisrenu Pulliam Monocytes/100 WBC (Bld) 3.2 % Normal 1.7-12.0 [facility] Comment on above: Performed By: #### C BC ####[facility] Vdscrgduoj5295 [place] [address]Dr. Chapisrenu Pulliam NEUT # 9.8 103/ul Critically high 1.4-6.5 [facility] Comment on above: Performed By: #### C BC ####[facility] Ktcmuhykmp939[address] [place], [place] [address]Dr. Garima Heraclio Neutrophils/100 WBC (Bld) 90.5 % Critically high 43.0-75.0 [facility] Comment on above: Performed By: #### C BC ####[facility] Gczirkgosc8645 [place] [address]Dr. Garima Pulliam Platelet mean volume (Bld) [Entitic vol] 9.4 fL Critically low 9.5-13.5 [facility] Comment on above: Performed By: #### C BC ####[facility] Priwnkdtnd9329 [place] [address]Dr. Garima Pulliam PLT 208 103/ul Normal 150-450 [facility] Comment on above: Performed By: #### C BC ####[facility] Kjgimefiey2282 [place] [address]Dr. Garima Pulliam RBC 4.97 106/ul Normal 4.70-6.10 [facility] Comment on above: Performed By: #### C BC ####[facility] Mxomgvrzct5409[address] [place], [place] [address]Dr. Garima Pulliam WBC 10.8 103/ul Normal 4.0-11.0 [facility] Comment on above: Performed By: #### C BC ####[facility] Utpajwgidv2906[address] [place], [place] [address]Dr. Garima Pulliam PROF 14(COMP METB)on 022 Albumin [Mass/Vol] 4.0 g/dL Normal 3.4-5.0 [facility] Comment on above: Performed By: #### C MP ####[facility] Souktgrkwh8307[address] [place], [place] [address]Dr. Garima Pulliam Albumin/Globulin [Mass ratio] 1.5 {ratio} Normal [facility] Comment on above: Performed By: #### C MP ####[facility] Cmcqttklci8039 [place] [address]Dr. Garima Pulliam ALP [Catalytic activity/Vol] 73 U/L Normal 46-116 [facility] Comment on above: Performed By: #### C MP ####[facility] Swkptagdzc5589[address] [place], [place] [address]Dr. Garima Pulliam ALT [Catalytic activity/Vol] 42 U/L Normal 16-63 [facility] Comment on above: Performed By: #### C MP ####[facility] Ehfxxtvomy3857[address] [place], [place] [address]Dr. Garima Pulliam Anion gap [Moles/Vol] 9.1 mmol/L Normal [facility] Comment on above: Performed By: #### C MP ####[facility] Wohwwabypt8287[address] [place], [place] [address]Dr. Garima Pulliam AST [Catalytic activity/Vol] 28 U/L Normal 15-37 [facility] Comment on above: Performed By: #### C MP ####[facility] Ezkrmxlamk1056[address] [place], [place] [address]Dr. Garima Pulliam Bilirubin [Mass/Vol] 0.6 mg/dL Normal 0.2-1.0 [facility] Comment on above: Performed By: #### C MP ####[facility] Mrulzqmnxr6605[address] [place], [place] [address]Dr. Garima Pulliam Calcium [Mass/Vol] 8.6 mg/dL Normal 8.5-10.1 [facility] Comment on above: Performed By: #### C MP ####[facility] Zumtbhgctv6406[address] [place], [place] [address]Dr. Garima Pulliam Chloride [Moles/Vol] 105 mmol/L Normal 98-107 [facility] Comment on above: Performed By: #### C MP ####[facility] Xqfcbdkaid165[address] [place], [place] [address]Dr. Garima Pulliam CO2 [Moles/Vol] 28.5 mmol/L Normal 21.0-32.0 [facility] Comment on above: Performed By: #### C MP ####[facility] Fnddqhjtgd9725[address] [place], [place] [address]Dr. Garima Pulliam Creatinine [Mass/Vol] 0.78 mg/dL Normal 0.70-1.30 [facility] Comment on above: Performed By: #### C MP ####[facility] Wtpvbdhaxw187[address] [place], [place] [address]Dr. Garima Heraclio EGFR-AF CAMEROONIAN >60 Normal >=60 [facility] Comment on above: Performed By: #### C MP ####[facility] Yfausmzbun5259[address] [place], [place] [address]Dr. Garima Heraclio EGFR-NON AF CAMEROONIAN >60 Normal >=60 [facility] Comment on above: Performed By: #### C MP ####[facility] Hwtffnulzu4958 [place] [address]Dr. Garima Pulliam Globulin (S) [Mass/Vol] 2.7 g/dL Normal [facility] Comment on above: Performed By: #### C MP ####[facility] Vbyughdeun5962 [place] [address]Dr. Garima Pulliam Glucose [Mass/Vol] 220 mg/dL Critically high 74-106 [facility] Comment on above: Performed By: #### C MP ####[facility] Yvhvqhewxx4603 [place] [address]Dr. Garima Pulliam Potassium [Moles/Vol] 3.6 mmol/L Normal 3.5-5.1 [facility] Comment on above: Performed By: #### C MP ####[facility] Aixqytqsrv8072 [place] [address]Dr. Garima Pulliam Protein [Mass/Vol] 6.7 g/dL Normal 6.4-8.2 [facility] Comment on above: Performed By: #### C MP ####[facility] Kcbblgneuh6917[address] [place], [place] [address]Dr. Garima Pulliam Sodium [Moles/Vol] 139 mmol/L Normal 136-145 [facility] Comment on above: Performed By: #### C MP ####[facility] Cziuxohasq2975 [place] [address]Dr. Garima Pulliam Urea nitrogen [Mass/Vol] 11.0 mg/dL Normal 7.0-18.0 [facility] Comment on above: Performed By: #### C MP ####[facility] Foooiogwii4799 [place] [address]Dr. Garima Heraclio Urea nitrogen/Creatinine [Mass ratio] 14.1 mg/mg Normal [facility] Comment on above: Performed By: #### C MP ####[facility] Ggstadiwdt6760 [place] [address]Dr. Garima Pulliam CARDIAC NASH 3-6on 2 CK [Catalytic activity/Vol] 240 U/L Normal 39-308 [facility] Comment on above: Performed By: #### C MREP ####[facility] Hrrnsijpin9340 [place] [address]Dr. Garima Pulliam CK.MB [Mass/Vol] 10.38 ng/mL Critically high <=3.60 [facility] Comment on above: Performed By: #### C MREP ####[facility] Wcehxevwdu3138 [place] [address]Dr. Garima Pulliam HSTROP 18.5 pg/mL Normal 4.0-76.1 [facility] Comment on above: Result Comment: CUT- OFF POINTS HAVE BEEN ESTABLISHED BASED ON THE FOURTH UNIVERSAL DEFINITIONS OF MYOCARDIALINFARCTION. THE UPPER REFERENCE LIMIT (URL) OF TROPONIN, DEFINED THE 99TH PERCENTILE OFcTnI DISTRIBUTION IN A REFERENCE POPULATION, HAS BEEN CONFIRMED THE DECISION THRESHOLDFOR PR DIAGNOSIS. Performed By: #### C MREP ####[facility] Ccmovguxca3842 [place] [address]Dr. Garima Pulliam CK [Catalytic activity/Vol] 257 U/L Normal 39-308 [facility] Comment on above: Performed By: #### C MREP ####[facility] Fufymlapjy32[address] [place], [place] [address]Dr. Garima Pulliam CK.MB [Mass/Vol] 9.89 ng/mL Critically high <=3.60 [facility] Comment on above: Performed By: #### C MREP ####[facility] Wrlhwmkuth155[address] [place], [place] [address]Dr. Garima Pulliam HSTROP 16.9 pg/mL Normal 4.0-76.1 [facility] Comment on above: Result Comment: CUT- OFF POINTS HAVE BEEN ESTABLISHED BASED ON THE FOURTH UNIVERSAL DEFINITIONS OF MYOCARDIALINFARCTION. THE UPPER REFERENCE LIMIT (URL) OF TROPONIN, DEFINED THE 99TH PERCENTILE OFcTnI DISTRIBUTION IN A REFERENCE POPULATION, HAS BEEN CONFIRMED THE DECISION THRESHOLDFOR PR DIAGNOSIS. Performed By: #### C MREP ####[facility] Adzfxepedq2017[address] [place], [place] [address]Dr. Garima Pulliam CBC AUTO DIFFon 09-13-2022 BASO # 0.0 103/ul Normal 0.0-0.1 [facility] Comment on above: Performed By: #### C BC ####[facility] Bkhqoffmex5711[address] [place], [place] [address]Dr. Garima Pulliam Basophils/100 WBC (Bld) 0.1 % Critically low 0.2-2.0 [facility] Comment on above: Performed By: #### C BC ####[facility] Mcjvpaysvr3293[address] [place], [place] [address]Dr. Garima Pulliam EO # 0.0 103/ul Normal 0.0-0.7 [facility] Comment on above: Performed By: #### C BC ####[facility] Rfohhnaltd5787[address] [place], [place] [address]Dr. Chapisrenu Heraclio Eosinophils/100 WBC (Bld) 0.0 % Critically low 0.9-7.0 [facility] Comment on above: Performed By: #### C BC ####[facility] Rsoftiolas[address] [place], [place] [address]Dr. Garima Pulliam Erythrocyte distribution width (RBC) [Ratio] 13.6 % Normal 11.0-15.0 [facility] Comment on above: Performed By: #### C BC ####[facility] Urbyqscffg2184[address] [place], [place] [address]Dr. Garima Pulliam Hematocrit (Bld) [Volume fraction] 48.2 % Normal 42.0-54.0 [facility] Comment on above: Performed By: #### C BC ####[facility] Vyuaxpkpju3[address] [place], [place] [address]Dr. Garima Pulliam Hemoglobin (Bld) [Mass/Vol] 16.0 g/dL Normal 14.0-18.0 [facility] Comment on above: Performed By: #### C BC ####[facility] Aziyndsppr06[address] [place], [place] [address]Dr. Garima Pulliam IG # 0.02 10e3/ul Normal 0.00-0.03 [facility] Comment on above: Performed By: #### C BC ####[facility] Lglrqzbzfv6503 [place] [address]Dr. Chapisrenu Pulliam IG % 0.3 % Normal 0.0-0.5 [facility] [facility] Comment on above: Performed By: #### C BC ####[facility] [address] [place] [address]Dr. Chapisrenu Heraclio LYMPH # 0.5 103/ul Critically low 1.2-3.8 The [facility] Comment on above: Performed By: #### C BC ####[facility] Isptcnqixe76[address] [place] [address]Dr. Chapisrenu Pulliam Lymphocytes/100 WBC (Bld) 7.7 % Critically low 20.5-60.0 [facility] Comment on above: Performed By: #### C BC ####[facility] Oacnwavkss[address] [place] [address]Dr. Garima Pulliam MANUAL DIFF REQ NO Normal The [facility] Comment on above: Performed By: #### C BC ####[facility] Yjzviqcsub5207 [place] [address]Dr. Garima Heraclio MCH (RBC) [Entitic mass] 30.6 pg Normal 25.9-34.0 [facility] Comment on above: Performed By: #### C BC ####[facility] Obdyipcote[address] [place], [place] [address]Dr. Garima Heraclio MCHC (RBC) [Mass/Vol] 33.2 g/dL Normal 29.9-35.2 [facility] Comment on above: Performed By: #### C BC ####[facility] Sadswwfobq[address] [place] [address]Dr. Chapisrenu Pulliam MCV (RBC) [Entitic vol] 92.2 fL Normal 80.0-94.0 [facility] Comment on above: Performed By: #### C BC ####[facility] Chbrmwrmfi[address] [place], [place] [address]Dr. Garima Pulliam MONO # 0.0 103/ul Critically low 0.3-0.8 The [facility] Comment on above: Performed By: #### C BC ####[facility] Kjnqekmyyh[address] [place], [place] [address]Dr. Garima Pulliam Monocytes/100 WBC (Bld) 0.4 % Critically low 1.7-12.0 [facility] Comment on above: Performed By: #### C BC ####[facility] Azeozneqfg[address] [place] [address]Dr. Garima Pulliam NEUT # 6.2 103/ul Normal 1.4-6.5 [facility] Comment on above: Performed By: #### C BC ####[facility] Ybdwqkwpvu9[address] [place] [address]Dr. Garima Pulliam Neutrophils/100 WBC (Bld) 91.5 % Critically high 43.0-75.0 [facility] Comment on above: Performed By: #### C BC ####[facility] Apkxazqjod37[address] [place] [address]Dr. Garima Pulliam Platelet mean volume (Bld) [Entitic vol] 8.7 fL Critically low 9.5-13.5 [facility] Comment on above: Performed By: #### C BC ####[facility] Wysxocnbfo[address] [place] [address]Dr. Garima Pulliam PLT 179 103/ul Normal 150-450 [facility] Comment on above: Performed By: #### C BC ####[facility] Hmulcrzihm[address] [place] [address]Dr. Garima Pulliam RBC 5.23 106/ul Normal 4.70-6.10 [facility] Comment on above: Performed By: #### C BC ####[facility] Gczeicfmyy[address] [place] [address]Dr. Garima Pulliam WBC 6.7 103/ul Normal 4.0-11.0 [facility] Comment on above: Performed By: #### C BC ####[facility] Bmkateuror3307 [place] [address]Dr. Garima Pulliam PROF CHEM 8 (BAS METB)on Anion gap [Moles/Vol] 12.1 mmol/L Normal Th [facility] Comment on above: Performed By: #### B MP ####[facility] Cvwxpdyeso[address] [place] [address]Dr. Garima Pulliam Calcium [Mass/Vol] 8.7 mg/dL Normal 8.5-10.1 The [facility] Comment on above: Performed By: #### B MP ####[facility] Luplscslrb4[address] [place] [address]Dr. Garima Pulliam Chloride [Moles/Vol] 105 mmol/L Normal 98-107 [facility] Comment on above: Performed By: #### B MP ####[facility] Pkjkvzzfwo8255 [place] [address]Dr. Garima Pulliam CO2 [Moles/Vol] 25.5 mmol/L Normal 21.0-32.0 The [facility] Comment on above: Performed By: #### B MP ####[facility] Nimqmdayax[address] [place], [place] [address]Dr. Garima Pulliam Creatinine [Mass/Vol] 0.63 mg/dL Critically low 0.70-1.30 [facility] Comment on above: Performed By: #### B MP ####[facility] Qsjonzocii[address] [place], [place] [address]Dr. Garima Pulliam EGFR-AF CAMEROONIAN >60 Normal >=60 The [facility] Comment on above: Performed By: #### B MP ####[facility] Lsibcajied[address] [place], [place] [address]Dr. Garima Heraclio EGFR-NON AF CAMEROONIAN >60 Normal >=60 [facility] Comment on above: Performed By: #### B MP ####[facility] Fecmnwlblx[address] [place], [place] [address]Dr. Garima Pulliam Glucose [Mass/Vol] 162 mg/dL Critically high 74-106 [facility] Comment on above: Performed By: #### B MP ####[facility] Fkjaknueka[address] [place], [place] [address]Dr. Garima Pulliam Potassium [Moles/Vol] 3.6 mmol/L Normal 3.5-5.1 [facility] Comment on above: Performed By: #### B MP ####[facility] Wvbcdicxcr[address] [place], [place] [address]Dr. Chapisrenu Pulliam Sodium [Moles/Vol] 139 mmol/L Normal 136-145 [facility] Comment on above: Performed By: #### B DAVID ####[facility] Kdupwutdcl46[address] [place] [address]Dr. Garima Pulliam Urea nitrogen [Mass/Vol] 9.0 mg/dL Normal 7.0-18.0 [facility] Comment on above: Performed By: #### B DAVID ####[facility] Jnmxthvvnl[address] [place] [address]Dr. Chapisrenu Pulliam Urea nitrogen/Creatinine [Mass ratio] 14.3 mg/mg Normal [facility] Comment on above: Performed By: #### B DAVID ####[facility] Bbipjtbumc63[address] [place] [address]Dr. Chapisrenu Pulliam CARDIAC NASH ADMITon 022 CK [Catalytic activity/Vol] 304 U/L Normal 39-308 [facility] Comment on above: Performed By: #### B NANCY HERNANDEZ ####[facility] Niqlumkfzo[address] [place] [address]Dr. Chapisrenu Pulliam CK.MB [Mass/Vol] 11.81 ng/mL Critically high <=3.60 Th [facility] Comment on above: Performed By: #### B NANCY HERNANDEZ ####[facility] Ujjjcsldjv[address] [place] [address]Dr. Garima Heraclio HSTROP 13.3 pg/mL Normal 4.0-76.1 [facility] Comment on above: Result Comment: CUT- OFF POINTS HAVE BEEN ESTABLISHED BASED ON THE FOURTH UNIVERSAL DEFINITIONS OF MYOCARDIALINFARCTION. THE UPPER REFERENCE LIMIT (URL) OF TROPONIN, DEFINED THE 99TH PERCENTILE OFcTnI DISTRIBUTION IN A REFERENCE POPULATION, HAS BEEN CONFIRMED THE DECISION THRESHOLDFOR PR DIAGNOSIS. Performed By: #### NANCY Larkin MP ####[facility] Ugfuhjslsy[address] [place] [address]Dr. Garima Pulliam DORIS 133 ng/mL Critically high 16-96 [facility] Comment on above: Performed By: #### NANCY Larkin MP ####[facility] Gbfwsagqym5[address] [place] [address]Dr. Garima Pulliam CBC AUTO DIFFon 09-12-2022 BASO # 0.0 103/ul Normal 0.0-0.1 [facility] Comment on above: Performed By: #### C BC ####[facility] Arkargiruk[address] [place] [id number]. Garima Pulliam Basophils/100 WBC (Bld) 0.2 % Normal 0.2-2.0 [facility] Comment on above: Performed By: #### C BC ####[facility] Cqiavdhnax54[address] [place] [address]Dr. Garima Heraclio EO # 0.2 103/ul Normal 0.0-0.7 [facility] Comment on above: Performed By: #### C BC ####[facility] Wzrhevbqac4[address] [place] [address]Dr. Garima Heraclio Eosinophils/100 WBC (Bld) 1.3 % Normal 0.9-7.0 [facility] Comment on above: Performed By: #### C BC ####[facility] Zjidfjeriq[address] [place] [address]Dr. Garima Pulliam Erythrocyte distribution width (RBC) [Ratio] 13.7 % Normal 11.0-15.0 [facility] Comment on above: Performed By: #### C BC ####[facility] Sclkiwxebl87[address] [place] [address]Dr. Garima Pulliam Hematocrit (Bld) [Volume fraction] 46.4 % Normal 42.0-54.0 [facility] Comment on above: Performed By: #### C BC ####[facility] Liojtlzlfk[address] [place] [id number]. Garima Pulliam Hemoglobin (Bld) [Mass/Vol] 15.7 g/dL Normal 14.0-18.0 [facility] Comment on above: Performed By: #### C BC ####[facility] Ksldhfueec49[address] [place] [id number]. Garima Heraclio IG # 0.04 10e3/ul Critically high 0.00-0.03 [facility] Comment on above: Performed By: #### C BC ####[facility] Ksbrfqrkmb78[address] [place] [id number]. Garima Pulliam IG % 0.3 % Normal 0.0-0.5 [facility] Comment on above: Performed By: #### C BC ####[facility] Emtqkbuhir67[address] [place], [place] [address]Ds. Garima Pulliam LYMPH # 1.7 103/ul Normal 1.2-3.8 [facility] Comment on above: Performed By: #### C BC ####[facility] Anonhqpeug0[address] [place] [id number]. Garima Pulliam Lymphocytes/100 WBC (Bld) 11.5 % Critically low 20.5-60.0 [facility] Comment on above: Performed By: #### C BC ####[facility] Xignnypwtc9[address] [place] [id number]. Garima Pulliam MANUAL DIFF REQ NO Normal The [facility] Comment on above: Performed By: #### C BC ####[facility] Pixhbqtrjh7417 [place] [phone]. Garima Pulliam MCH (RBC) [Entitic mass] 31.0 pg Normal 25.9-34.0 [facility] Comment on above: Performed By: #### C BC ####[facility] Wqppvsempd6407 [place] [id number]. Garima Pulliam MCHC (RBC) [Mass/Vol] 33.8 g/dL Normal 29.9-35.2 [facility] Comment on above: Performed By: #### C BC ####[facility] Amvihxzfbn2174 [place] [id number]. Garima Pulliam MCV (RBC) [Entitic vol] 91.7 fL Normal 80.0-94.0 [facility] Comment on above: Performed By: #### C BC ####[facility] Ehygrldqby7[address] [place] [id number]. Garima Pulliam MONO # 0.8 103/ul Normal 0.3-0.8 [facility] Comment on above: Performed By: #### C BC ####[facility] Vukhjfvkru5851 [place] [id number]. Garima Pulliam Monocytes/100 WBC (Bld) 5.2 % Normal 1.7-12.0 [facility] Comment on above: Performed By: #### C BC ####[facility] Bcndqvscak83[address] [place] [id number]. Garima Pulliam NEUT # 11.7 103/ul Critically high 1.4-6.5 [facility] Comment on above: Performed By: #### C BC ####[facility] Rnjhcskuoo4702 [place] [phone]. Garima Pulliam Neutrophils/100 WBC (Bld) 81.5 % Critically high 43.0-75.0 [facility] Comment on above: Performed By: #### C BC ####[facility] Ooxlyosneb2615 [place] [phone]. Garima Pulliam Platelet mean volume (Bld) [Entitic vol] 8.6 fL Critically low 9.5-13.5 [facility] Comment on above: Performed By: #### C BC ####[facility] Dttnlzbqiu7909 [place] [id number]. Garima Pulliam PLT 191 103/ul Normal 150-450 [facility] Comment on above: Performed By: #### C BC ####[facility] Eqmekivfpx6148 [place] [id number]. Garima Pulliam RBC 5.06 106/ul Normal 4.70-6.10 [facility] Comment on above: Performed By: #### C BC ####[facility] Twzmx[address] [place], [place] [address]Dr. Garima Pulliam WBC 14.4 103/ul Critically high 4.0-11.0 [facility] Comment on above: Performed By: #### C BC ####[facility] Yrtlamjsea[address] [place], [place] [address]Dr. Garima Pulliam Covid-19 PCR (CVDTB)on 08-24 SARS-CoV-2 (COVID-19) RNA MARIE+probe Ql (Unsp spec) Not detected Normal NOT DETECTED [facility] Comment on above: Result Comment: When diagnostic [...] for this test is supported by the [place] of Health and Human Service's declaration that [...] be used). Performed By: #### C VDTBH ####[facility] Cqnvtrxuqy89[address] [place] [address]Dr. Garima Pulliam LACTATE/LACTIC ACIDon 2021 Lactate [Moles/Vol] 1.0 mmol/L Normal 0.4-1.9 [facility] Comment on above: Performed By: #### L ACT ####[facility] Djzurmtalw[address] [place], [place] [address]Dr. Garima Pulliam PROF CHEM 8 (BAS METB)on Anion gap [Moles/Vol] 11.6 mmol/L Normal [facility] Comment on above: Performed By: #### NANCY Larkin MP ####[facility] Yjgcumipgh[address] [place] [address]Dr. Garima Pulliam Calcium [Mass/Vol] 9.2 mg/dL Normal 8.5-10.1 [facility] Comment on above: Performed By: #### NANCY Larkin MP ####[facility] Yhmutfjges58[address] [place] [address]Dr. Garima Pulliam Chloride [Moles/Vol] 105 mmol/L Normal 98-107 [facility] Comment on above: Performed By: #### NANCY Larkin MP ####[facility] Bktqgiplew2969 [place] [id number]. Garima Pulliam CO2 [Moles/Vol] 25.9 mmol/L Normal 21.0-32.0 [facility] Comment on above: Performed By: #### B DAVID, NANCY ####[facility] Gzrucobwqj6[address] [place] [id number]. Garima Pulliam Creatinine [Mass/Vol] 0.72 mg/dL Normal 0.70-1.30 [facility] Comment on above: Performed By: #### B DAVID, CMAANA ROSA ####[facility] Vfmocihlpw6881 [place] [id number]. Garima Pulliam EGFR-AF CAMEROONIAN >60 Normal >=60 [facility] Comment on above: Performed By: #### B DAVID, NANCY ####[facility] Bnuyulnykp04[address] [place] [address]Dr. Garima Pulliam EGFR-NON AF CAMEROONIAN >60 Normal >=60 [facility] Comment on above: Performed By: #### B DAVID, NANCY ####[facility] Iwzlvnccvb7670 [place] [address]Dr. Garima Pulliam Glucose [Mass/Vol] 111 mg/dL Critically high 74-106 [facility] Comment on above: Performed By: #### B DAVID, NANCY ####[facility] Aqtjajdmzk6[address] [place] [address]Dr. Garima Pulliam Potassium [Moles/Vol] 3.5 mmol/L Normal 3.5-5.1 [facility] Comment on above: Performed By: #### B DAVID, NANCY ####[facility] Xdnkdwnmfj8426 [place] [id number]. Garima Pulliam Sodium [Moles/Vol] 139 mmol/L Normal 136-145 [facility] Comment on above: Performed By: #### B DAVID, NANCY ####[facility] Zqenepwvds[address] [place] [address]Dr. Garima Pulliam Urea nitrogen [Mass/Vol] 7.0 mg/dL Normal 7.0-18.0 [facility] Comment on above: Performed By: #### B DAVID, NANCY ####[facility] Wzznmvqvps4[address] [place], [place] [address]Ha. Garima Pulliam Urea nitrogen/Creatinine [Mass ratio] 9.7 mg/mg Normal [facility] Comment on above: Performed By: #### B DAVID, NANCY ####[facility] Sohftoyrdu4[address] [place], [place] [address]Rh. Garima Pulliam XR CHEST 1 Von 09-12-2022 XR CHEST 1 V Normal [facility] Encounters Encounter Date Encounter Type Care Provider [...] Facility:[facility]1 Payers Date Payer Category Payer Unknown [id number] 1960 Medicaid [id number] 1960 Unknown [id number] 1959 Unknown [id number] 1955 Unknown [id number] 2.16.84 0.1.962999.3.579.2.593 1954 Unknown [id number] 2.16.84 0.1.230509.3.579.2.593 1954 Unknown [id number] 2.16.84 0.1.097881.3.579.2.593 1954 Unknown [id number] 2.16.84 0.1.670489.3.579.2.593 1954 Unknown [id number] 2.16.84 0.1.529180.3.579.2.593 1954 Unknown [id number] 2.16.84 0.1.687068.3.579.2.593 1954 Unknown [id number] 2.16.84 0.1.540321.3.579.2.593 1954 Unknown [id number] 2.16.84 0.1.840545.3.579.2.593 1954 Unknown [id number] 2.16.84 0.1.171070.3.579.2.593 1954 Unknown [id number] 2.16.84 0.1.508908.3.579.2.593 1954 Unknown [id number] 2.16.84 0.1.806260.3.579.2.593 1954 Unknown [id number] 2.16.84 0.1.729676.3.579.2.593 1954 Unknown [id number] 2.16.84 0.1.257383.3.579.2.593 1954 Unknown [id number] 2.16.84 0.1.371041.3.579.2.593 1954 Unknown [id number] 2.16.84 0.1.339311.3.579.2.593 1954 Unknown [id number] 2.16.84 0.1.091219.3.579.2.593 1954 Unknown [id number] 2.16.84 0.1.616122.3.579.2.593 1954 Unknown [id number] 2.16.84 0.1.673659.3.579.2.593 1954 Unknown [id number] 2.16.84 0.1.688504.3.579.2.593 1954 Unknown [id number] 2.16.84 0.1.068428.3.579.2.593 Summary Purpose Family History No Family History Records Found Advance Directives No Advanced Directives Records Found Additional Source Comments (unrecognized sect ion and content) No Status Records Found INFORMATION SOURCE (unrecogn ized section and content) DATE CREATED AUTHOR 04/08/2023 [facility] FOR RECORDS PERTAINING TO PATIENTS WHO [...] BE BASED ON THE PRIMARY CLINICAL RECORDS. [facility] [employer] [facility]. provides no warranty or guarantee of the accuracy or completeness of information in this document.
--- NOTE | 2024-03-13 13:54 | ECG_ITS ---
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
--- NOTE | 2024-03-13 13:54 | XR_ITS ---
The [address] [address] Patient Name: CONSTANZA BARRETO MRN: [id number] date: 1955 Sex: M Assigned Patient Location: ER Current Patient Location: ED.MAIN Accession/Order Number: [id number] Exam Date: 03/13/2024 14:25 Report Date: 03/13/2024 15:08 At the request of: DEMARCUS GARCIA Procedure: XR chest 1V PROCEDURE: XR chest 1V DATE: 03/13/2024 1:25 PM CDT COMPARISONS: Multiple previous exams last one dated 03/01/2024 CLINICAL INDICATION: 68 years Male SOB FINDINGS: The cardiomediastinal silhouette and pulmonary vasculature are within normal limits. The lungs are clear. There is no evidence of pleural effusion or pneumothorax. XR/XR chest 1V IMPRESSION: Chest radiograph is within normal limits. Electronically authenticated by: LARRY TURNER Date: 03/13/2024 15:08
--- NOTE | 2024-03-13 13:57 | ED_ITS ---
HPI HPI - General Adult General Chief complaint: Shortness of Breath/Dyspnea Stated complaint: shortness of breath/chest pain Time Seen by Provider: 03/13/24 13:43 Source: patient Mode of arrival: Wheelchair History of Present Illness HPI narrative: 68-year-old male presents for difficulty breathing. He did not realize that his heart rate was fast. It has been like this for few hours and he states he has no history of atrial fibrillation. No fever or productive cough and has not complained to me of chest pain. Symptom has been continuous. Related Data Home Medications ?Medication ?Instructions ?Recorded ?Confirmed albuterol sulfate 2.5 mg/3 mL 2.5 mg inhalation Q6H PRN 11/02/23 03/13/24 (0.083 %) solution for nebulization shortness of breath or wheezing albuterol sulfate 90 mcg/actuation 2 inh inhalation Q6H PRN shortness 03/13/24 03/13/24 aerosol inhaler of breath or wheezing Previous Rx's ?Medication ?Instructions ?Recorded losartan 100 mg tablet 100 mg PO DAILY #30 tabs 12/27/23 Allergies Allergy/AdvReac Type Severity Reaction Status Date / Time No Known Drug Allergies Allergy Verified 03/05/24 19:39 Opioid HPI Opioid Management Most Recent Opioid Data: Last ORT Total Score 0 01/29/24 06:36 Last ORT Risk Category Low Risk 01/29/24 06:36 Review of Systems ROS Narrative A ten point review of systems is negative except as noted above. [facility] Medical History (Updated 03/13/24 @ 17:17 by Diego Lilly MD) Hypokalemia ?E87.6 - Hypokalemia (ICD-10) New onset type 2 diabetes mellitus ?E11.9 - Type 2 diabetes mellitus without complications (ICD-10) Lower extremity edema ?R60.0 - Localized edema (ICD-10) Edema ?R60.9 - Edema, unspecified (ICD-10) Acute hyperglycemia ?R73.9 - Hyperglycemia, unspecified (ICD-10) Tobacco abuse ?Z72.0 - Tobacco use (ICD-10) HTN (hypertension) ?I10 - Essential (primary) hypertension (ICD-10) Community acquired pneumonia ?J18.9 - Pneumonia, unspecified organism (ICD-10) Chronic obstructive pulmonary disease ?J44.9 - Chronic obstructive pulmonary disease, unspecified (ICD-10) Acute exacerbation of chronic obstructive pulmonary disease (COPD) ?J44.1 - Chronic obstructive pulmonary disease with (acute) exacerbation (ICD-10) RLL pneumonia ?J18.9 - Pneumonia, unspecified organism (ICD-10) COPD (chronic obstructive pulmonary disease) ?J44.9 - Chronic obstructive pulmonary disease, unspecified (ICD-10) Surgical History (Updated 01/29/24 @ 06:45 by Latonia Martin RN) Hx of tonsillectomy ?Z90.89 - Acquired absence of other organs (ICD-10) Family History (Updated 12/25/23 @ 21:28 by Kym Ordaz) Mother Family history of cancer Family history of hypertension Father Family history of cancer Social History Within the past year, how often did you have a drink containing alcohol: 4 or more times a week Within the past year, how many standard drinks containing alcohol did you have on a typical day: 3 or 4 Within the past year, how often did you have six or more drinks on one occasion: less than monthly Total score: 3 Score interpretation: A score of 4 or more indicates drinking is likely to affect patient's safety. Smoking status: Current every day smoker Non-prescribed substance use: cannabis (any form) Previous occupational history: retired Highest level of school completed/degree received: high school graduate Are you now , , , , never or living with a partner: In a typical week, how many times do you talk on the telephone with family, friends, or neighbors: twice per week How often do you get together with friends or relatives: once per week How often do you attend sabianist or christian services: never Do you belong to any clubs or organizations such as sabianist groups unions, fraternal or athletic groups, or school groups: no Total score: 1 Score interpretation: A score of less than or equal to 1 indicates the most socially isolated. Little interest or pleasure in doing things: several days Feeling down, depressed, or hopeless: not at all Feel stressed/tense/nervous/anxious/difficulty sleeping: not at all Do you think of yourself as: straight/heterosexual Gender Identity: male Exam Narrative Exam Narrative: Nurses note and vital signs reviewed and patient is not hypoxic. General: The patient appears well and in no apparent distress. Patient is resting comfortably on cart. Skin: Warm, dry, no pallor noted. There is no rash noted. Head: Normocephalic, atraumatic Eye: Normal conjunctiva, no drainage Ears, Nose, Mouth, and Throat: oral mucosa is moist. Nares patent. Cardiovascular: Irregularly irregular and tachycardic Respiratory: Speaking in full sentences, breath sounds are equal Back: non-tender GI: Soft and nontender Musculoskeletal: The patient has no evidence of calf tenderness, no pitting edema, symmetrical pulses noted bilaterally Neurological: A&O, normal speech Psychiatric: Cooperative Constitutional Vital Signs, click to edit/add: Last Vital Signs Temp 98.7 F 03/13/24 13:43 Pulse 89 03/13/24 17:00 Resp 24 H 03/13/24 17:00 BP 148/85 H 03/13/24 16:31 Pulse Ox 95 03/13/24 17:09 O2 Del Method Room Air 03/13/24 17:09 O2 Flow Rate 1 03/13/24 16:14 Course Vital Signs Vital signs: Vital Signs Temperature 98.7 F 03/13/24 13:43 Pulse Rate 159 H 03/13/24 13:43 Respiratory Rate 26 H 03/13/24 13:43 Blood Pressure 147/100 H 03/13/24 13:43 Pulse Oximetry 95 03/13/24 13:43 Oxygen Delivery Method Room Air 03/13/24 13:43 Temperature 98.7 F 03/13/24 13:43 Pulse Rate 89 03/13/24 17:00 Respiratory Rate 24 H 03/13/24 17:00 Blood Pressure 148/85 H 03/13/24 16:31 Pulse Oximetry 95 03/13/24 17:09 Oxygen Delivery Method Room Air 03/13/24 17:09 Oxygen Delivery Flow Rate 1 03/13/24 16:14 Medical Decision Making MDM Narrative Medical decision making narrative: The patient presented with atrial fibrillation and RVR. He was given IV Cardizem bolus and placed on a drip. Heart rate slowed down and then he converted back into a sinus rhythm and remains in sinus rhythm. There is no reason for admission to the hospital at this point and he will be discharged home and was asked to follow-up with cardiology. He states he will call in the morning for follow-up appointment. Treatment diagnosis and follow-up were discussed with the patient. Differential Diagnosis Differential Diagnosis: Atrial fibrillation, atrial flutter, COPD Lab Data Lab results reviewed: Yes I reviewed the patient's lab results Labs: Lab Results 03/13/24 Range/Units 13:55 WBC 13.5 H (4.0-11.0) 10^3/uL RBC 5.66 (4.70-6.10) 10^6/uL Hgb 17.0 (14.0-18.0) g/dL Hct 49.8 (42.0-54.0) % MCV 88.0 (80.0-94.0) fL MCH 30.0 (25.9-34.0) pg MCHC 34.1 (29.9-35.2) g/dL RDW 13.2 (11.0-15.0) % Plt Count 226 (150-450) 10^3/uL MPV 9.0 L (9.5-13.5) fL Neut % (Auto) 63.6 (43.0-75.0) % Lymph % (Auto) 24.1 (20.5-60.0) % [place] % (Auto) 7.4 (1.7-12.0) % Eos % (Auto) 4.2 (0.9-7.0) % Baso % (Auto) 0.4 (0.2-2.0) % Neut # (Auto) 8.6 H (1.4-6.5) 10^3/uL Lymph # (Auto) 3.3 (1.2-3.8) 10^3/uL [place] # (Auto) 1.0 H (0.3-0.8) 10^3/uL Eos # (Auto) 0.6 (0.0-0.7) 10^3/uL Baso # (Auto) 0.1 (0.0-0.1) 10^3/uL Abs Immat Gran (auto) 0.04 H (0.00-0.03) 10^3/uL Imm/Tot Granulo (auto) 0.3 (0.0-0.5) % Sodium 140 (136-145) mmol/L Potassium 2.8 L* (3.5-5.1) mmol/L Chloride 101 (98-107) mmol/L Carbon Dioxide 29.4 (21.0-32.0) mmol/L Anion Gap 12.4 BUN 4.0 L (7.0-18.0) mg/dL Creatinine 0.72 (0.70-1.30) mg/dL Est GFR ( Amer) >60 (>=60) Est GFR (Non-Af Amer) >60 (>=60) BUN/Creatinine Ratio 5.6 Glucose 108 H (74-106) mg/dL Calcium 9.8 (8.5-10.1) mg/dL Troponin I High Sens 23.2 (4.0-76.1) pg/mL Imaging Data Chest x-ray: Radiologist's impression: ITS Impressions Chest X-Ray 03/13/24 13:54 IMPRESSION: Chest radiograph is within normal limits. Electronically authenticated by: LARRY TURNER Date: 03/13/2024 15:08 ECG Data Attestation: I personally reviewed and interpreted this ECG as follows: (EKG on my interpretation shows atrial fibrillation with RVR and a heart rate of 170.) Critical Care Time Critical Care Time Critical Care Time: Yes Total Critical Care Time: 35 Attestation: Due to the high probability of sudden and clinically significant deterioration in the patient's condition he/she required the highest level of my preparedness to intervene urgently I provided critical care time including documentation time, medication orders and management, reevaluation, vital sign assessment, ordering and reviewing of lab tests, ordering and reviewing of x-ray studies, and admission orders. Aggregate critical care time is 35 minutes including only time during which I was engaged in work directly related to his/her care and did not include time spent treating other patients simultaneously. Discharge Plan Discharge Stand Alone Forms: Portal Instructions Chief Complaint: Shortness of Breath/Dyspnea Clinical Impression: Atrial fibrillation with RVR Patient Disposition: Home, Self-Care Time of Disposition Decision: 17:15 Condition: Good Mode of Transportation: Private Vehicle Prescriptions / Home Meds: No Action albuterol sulfate 2.5 mg /3 mL (0.083 %) solution for nebulization 2.5 mg inhalation Q6H PRN (Reason: shortness of breath or wheezing) losartan 100 mg tablet 100 mg PO DAILY Qty: 30 11RF albuterol sulfate 90 mcg/actuation HFA aerosol inhaler 2 inh inhalation Q6H PRN (Reason: shortness of breath or wheezing) Print Language: Tamazight Instructions: A-fib (Atrial Fibrillation) (ED) Additional Instructions: Follow-up with cardiology, Dr. Son Referrals: Massiel Son MD [Physician] - 1 week Physician,Non-StaffMD [Primary Care Provider] - 1 week
[2024-03-13] MEDS: DILTIAZEM HCL 25 MG/5 ML VIAL 20 MG IV (13:58)
[2024-03-13 14:01] LABS: Basophils Absolute Auto 0.1 10^3/uL (0.0-0.1); Basophils Percent Auto 0.4 % (0.2-2.0); Eosinophils Absolute Auto 0.6 10^3/uL (0.0-0.7); Eosinophils Percent Auto 4.2 % (0.9-7.0); Hematocrit 49.8 % (42.0-54.0); Immature Granulocytes Abs Auto 0.04 10^3/uL (0.00-0.03); Immature Granulocytes Pct Auto 0.3 % (0.0-0.5); Lymphocytes Absolute Auto 3.3 10^3/uL (1.2-3.8); Lymphocytes Percent Auto 24.1 % (20.5-60.0); Mean Corpuscular HGB Conc 34.1 g/dL (29.9-35.2); Monocytes Percent Auto 7.4 % (1.7-12.0); Neutrophils Absolute Auto 8.6 10^3/uL (1.4-6.5); Neutrophils Percent Auto 63.6 % (43.0-75.0); Platelet Count 226 10^3/uL (150-450); Red Blood Count 5.66 10^6/uL (4.70-6.10); Red Cell Distribution Width 13.2 % (11.0-15.0); White Blood Count 13.5 10^3/uL (4.0-11.0)
[2024-03-13 14:17] LABS: Anion Gap 12.4; BUN Creatinine Ratio 5.6; Calcium 9.8 mg/dL (8.5-10.1); Carbon Dioxide 29.4 mmol/L (21.0-32.0); Chloride 101 mmol/L (98-107); Estimated GFR (African America >60 (>=60); Estimated GFR (Non-African Ame >60 (>=60); Glucose 108 mg/dL (74-106); Sodium 140 mmol/L (136-145); Troponin I High Sensitivity 23.2 pg/mL (4.0-76.1)
[2024-03-13 14:21] LABS: Potassium 2.8 mmol/L (3.5-5.1)
[2024-03-13] MEDS: dilTIAZem HCL 125 MG in 0.9 % SODIUM CHLORIDE 100 ML IV (14:27)
[2024-03-13] MEDS: POTASSIUM BICARBONATE/CIT 25 MEQ TABLET EFF 50 MEQ PO (14:50)
[2024-03-13] MEDS: DILTIAZEM HCL 25 MG/5 ML VIAL 10 MG IV (15:01)
--- NOTE | 2024-03-13 15:14 | ECG_ITS ---
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 Repeat ECG is requested 9150 abnormal ECG Electronically Signed On 03-14-2024 7:46:25 EDT by CARLYN LITTLE
[2024-03-13] MEDS: ALBUTEROL SULFATE 2.5 MG/3 ML VIAL NEB IH (16:13)
== END 2024-03-13 17:46 | disposition home or self-care (01) ==
PROVIDERS: Emergency Provider Emergency Medicine
DX: I48.91 Unspecified atrial fibrillation (principal); E11.9 Type 2 diabetes mellitus without complications; I10 Essential (primary) hypertension; J44.9 Chronic obstructive pulmonary disease, unspecified; Z79.899 Other long term (current) drug therapy; Z90.89 Acquired absence of other organs; Z87.01 Personal history of pneumonia (recurrent); F17.210 Nicotine dependence, cigarettes, uncomplicated; F12.90 Cannabis use, unspecified, uncomplicated
CPT/HCPCS: 36415; 71045; 80048; 84484; 85025; 87804; 87811; 93005; 94640; 96374; 96376; 99285

== ENCOUNTER 2024-03-21 15:50 | Emergency (ER) | payer MEDICARE, SELFPAY ==
[2024-03-21 15:57] VITALS: BP 178/86; PULSE 84; TEMP 37.7; O2SAT 95; BMI 25.0
--- NOTE | 2024-03-21 15:58 | ECG_ITS ---
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
--- NOTE | 2024-03-21 16:19 | XR_ITS ---
[address] [address] Patient Name: CONSTANZA BARRETO MRN: [id number] date: 1955 Sex: M Assigned Patient Location: ER Current Patient Location: ED.MAIN Accession/Order Number: [id number] Exam Date: 03/21/2024 16:28 Report Date: 03/21/2024 17:14 At the request of: RUDDY MCGHEE Procedure: XR chest 1V ONE-VIEW CHEST RADIOGRAPH, 03/21/2024, 4:28 PM EDT COMPARISON: Chest, 03/13/2024. CLINICAL HISTORY: Shortness of breath Findings and impression: 1. No acute cardiopulmonary disease. 2. Normal heart size. 3. Old left-sided fracture rib deformities. No acute osseous abnormality. Electronically authenticated by: Adriana COURTNEY Date: 03/21/2024 17:14
--- NOTE | 2024-03-21 16:25 | ED_ITS ---
HPI - SOB/Dyspnea General Chief Complaint: Shortness of Breath/Dyspnea Stated Complaint: sob Time Seen by Provider: 03/21/24 15:56 Source: patient Mode of arrival: Wheelchair Limitations: no limitations History of Present Illness HPI Narrative: Patient is a 68-year-old male with a extensive history of COPD and medication noncompliance who presents to the ER for shortness of breath over the last day. Patient was seen by myself on 03/12 with an unremarkable presentation at which time he was requesting only a breathing treatment. He was seen again On 03/13 and found to be in A-fib with RVR. Apparently he had unremarkable workup at that time and was discharged by the staff physician. Patient denies any fevers, chest pain, vomiting. He states he is eating and drinking well. He has chronic lower extremity swelling. He admits that he did not fill any of the medications that he was given on his previous visit. He states he is giving himself breathing treatments at home but his primary concern is to receive another breathing treatment from the ER. Related Data Home Medications ?Medication ?Instructions ?Recorded ?Confirmed albuterol sulfate 2.5 mg/3 mL 2.5 mg inhalation Q6H PRN 11/02/23 03/13/24 (0.083 %) solution for nebulization shortness of breath or wheezing albuterol sulfate 90 mcg/actuation 2 inh inhalation Q6H PRN shortness 03/13/24 03/13/24 aerosol inhaler of breath or wheezing Previous Rx's ?Medication ?Instructions ?Recorded losartan 100 mg tablet 100 mg PO DAILY #30 tabs 12/27/23 Allergies Allergy/AdvReac Type Severity Reaction Status Date / Time No Known Drug Allergies Allergy Verified 03/05/24 19:39 Review of Systems ROS Constitutional Denies: fever or chills Ears, nose, mouth, and throat Denies: throat pain or nasal congestion Cardiovascular Denies: chest pain Respiratory Reports: shortness of breath and cough; Denies: coughing up blood Gastrointestinal Denies: nausea or vomiting Integumentary/Breast Denies: rash Hematologic/Lymphatic Denies: easy bruising or easy bleeding [facility] Medical History (Updated 03/21/24 @ 17:05 by PALMIRA Pederson) Hypokalemia ?E87.6 - Hypokalemia (ICD-10) New onset type 2 diabetes mellitus ?E11.9 - Type 2 diabetes mellitus without complications (ICD-10) Lower extremity edema ?R60.0 - Localized edema (ICD-10) Edema ?R60.9 - Edema, unspecified (ICD-10) Acute hyperglycemia ?R73.9 - Hyperglycemia, unspecified (ICD-10) Tobacco abuse ?Z72.0 - Tobacco use (ICD-10) HTN (hypertension) ?I10 - Essential (primary) hypertension (ICD-10) Community acquired pneumonia ?J18.9 - Pneumonia, unspecified organism (ICD-10) Chronic obstructive pulmonary disease ?J44.9 - Chronic obstructive pulmonary disease, unspecified (ICD-10) Acute exacerbation of chronic obstructive pulmonary disease (COPD) ?J44.1 - Chronic obstructive pulmonary disease with (acute) exacerbation (ICD-10) RLL pneumonia ?J18.9 - Pneumonia, unspecified organism (ICD-10) COPD (chronic obstructive pulmonary disease) ?J44.9 - Chronic obstructive pulmonary disease, unspecified (ICD-10) Surgical History (Updated 01/29/24 @ 06:45 by Latonia Martin RN) Hx of tonsillectomy ?Z90.89 - Acquired absence of other organs (ICD-10) Family History (Updated 12/25/23 @ 21:28 by Kym Ordaz) Mother Family history of cancer Family history of hypertension Father Family history of cancer Social History Within the past year, how often did you have a drink containing alcohol: 4 or more times a week Within the past year, how many standard drinks containing alcohol did you have on a typical day: 3 or 4 Within the past year, how often did you have six or more drinks on one occasion: less than monthly Total score: 3 Score interpretation: A score of 4 or more indicates drinking is likely to affect patient's safety. Smoking status: Current every day smoker Non-prescribed substance use: cannabis (any form) Previous occupational history: retired Highest level of school completed/degree received: high school graduate Are you now , , , , never or living with a partner: In a typical week, how many times do you talk on the telephone with family, friends, or neighbors: twice per week How often do you get together with friends or relatives: once per week How often do you attend jehovah's witness or alevism services: never Do you belong to any clubs or organizations such as jehovah's witness groups unions, fraternal or athletic groups, or school groups: no Total score: 1 Score interpretation: A score of less than or equal to 1 indicates the most socially isolated. Little interest or pleasure in doing things: several days Feeling down, depressed, or hopeless: not at all Feel stressed/tense/nervous/anxious/difficulty sleeping: not at all Do you think of yourself as: straight/heterosexual Gender Identity: male Exam Narrative Exam Narrative: Gen.: Awake, alert, in no distress Head: Normocephalic, atraumatic ENT: Moist mucous membranes Respiratory: No respiratory distress, lungs clear bilaterally, diminished lung sounds Cardio: Regular rate and rhythm Extremities: Moves extremities equally, nonpitting edema Psych: Normal mood and affect Neuro: No focal neuro deficit Skin: Warm, dry, intact Constitutional Vital Signs, click to edit/add: Last Vital Signs Temp 99.9 F 03/21/24 15:57 Pulse 62 03/21/24 16:54 BP 178/86 H 03/21/24 15:57 Pulse Ox 95 03/21/24 16:54 O2 Del Method Room Air 03/21/24 16:54 Course Vital Signs Vital signs: Vital Signs Temperature 99.9 F 03/21/24 15:57 Pulse Rate 84 03/21/24 15:57 Blood Pressure 178/86 H 03/21/24 15:57 Pulse Oximetry 95 03/21/24 15:57 Oxygen Delivery Method Room Air 03/21/24 15:57 Temperature 99.9 F 03/21/24 15:57 Pulse Rate 62 03/21/24 16:54 Blood Pressure 178/86 H 03/21/24 15:57 Pulse Oximetry 95 03/21/24 16:54 Oxygen Delivery Method Room Air 03/21/24 16:54 MDM - SOB/Dyspnea MDM Narrative Medical decision making narrative: Patient given IV Solu-Medrol, breathing treatment, lab studies are unremarkable including troponin and BNP. Chest x-ray is stable. No EKG changes and patient has no complaints of chest pain, hemoptysis. He has chronic lower extremity swelling but no evidence of acute CHF at this time. He is not tachycardic or hypoxic. He should follow-up with PCP, continue breathing treatments at home. He states he comes to the ER for breathing treatments because he is convinced that the albuterol breathing treatments that we give in the emergency department are better than the nebulizers he has at home. Return to the ER if symptoms change or worsen Medical Records Attestation: I reviewed the patient's medical records. Lab Data Attestation: I reviewed the patient's lab results. Labs: Lab Results 03/21/24 Range/Units 16:24 WBC 7.5 (4.0-11.0) 10^3/uL RBC 4.61 L (4.70-6.10) 10^6/uL Hgb 13.7 L (14.0-18.0) g/dL Hct 41.2 L (42.0-54.0) % MCV 89.4 (80.0-94.0) fL MCH 29.7 (25.9-34.0) pg MCHC 33.3 (29.9-35.2) g/dL RDW 13.2 (11.0-15.0) % Plt Count 202 (150-450) 10^3/uL MPV 9.1 L (9.5-13.5) fL Neut % (Auto) 62.7 (43.0-75.0) % Lymph % (Auto) 26.0 (20.5-60.0) % [place] % (Auto) 7.4 (1.7-12.0) % Eos % (Auto) 3.4 (0.9-7.0) % Baso % (Auto) 0.4 (0.2-2.0) % Neut # (Auto) 4.7 (1.4-6.5) 10^3/uL Lymph # (Auto) 2.0 (1.2-3.8) 10^3/uL [place] # (Auto) 0.6 (0.3-0.8) 10^3/uL Eos # (Auto) 0.3 (0.0-0.7) 10^3/uL Baso # (Auto) 0.0 (0.0-0.1) 10^3/uL Abs Immat Gran (auto) 0.01 (0.00-0.03) 10^3/uL Imm/Tot Granulo (auto) 0.1 (0.0-0.5) % Sodium 138 (136-145) mmol/L Potassium 3.3 L (3.5-5.1) mmol/L Chloride 102 (98-107) mmol/L Carbon Dioxide 29.2 (21.0-32.0) mmol/L Anion Gap 10.1 BUN 7.0 (7.0-18.0) mg/dL Creatinine 0.72 (0.70-1.30) mg/dL Est GFR ( Amer) >60 (>=60) Est GFR (Non-Af Amer) >60 (>=60) BUN/Creatinine Ratio 9.7 Glucose 250 H (74-106) mg/dL Calcium 9.2 (8.5-10.1) mg/dL Magnesium 1.8 (1.8-2.4) mg/dL Total Bilirubin 0.6 (0.2-1.0) mg/dL AST 16 (15-37) U/L ALT 27 (16-63) U/L Alkaline Phosphatase 82 (46-116) U/L Troponin I High Sens 13.7 (4.0-76.1) pg/mL NT-Pro-B Natriuret Pep 552.0 (<=900.0) pg/mL Total Protein 6.2 L (6.4-8.2) g/dL Albumin 3.5 (3.4-5.0) g/dL Globulin 2.7 g/dL Albumin/Globulin Ratio 1.3 Imaging Data Chest x-ray: Attestation: I have reviewed the pertinent imaging results. ECG Data Attestation: I personally reviewed and interpreted this ECG as follows: (Normal sinus rhythm at a rate of 64, no acute ST elevation or ectopy. EKG reviewed by attending physician) Discharge Plan Discharge Stand Alone Forms: Portal Instructions Chief Complaint: Shortness of Breath/Dyspnea Clinical Impression: COPD (chronic obstructive pulmonary disease) Patient Disposition: Home, Self-Care Time of Disposition Decision: 17:04 Condition: Good Prescriptions / Home Meds: No Action albuterol sulfate 2.5 mg /3 mL (0.083 %) solution for nebulization 2.5 mg inhalation Q6H PRN (Reason: shortness of breath or wheezing) losartan 100 mg tablet 100 mg PO DAILY Qty: 30 11RF albuterol sulfate 90 mcg/actuation HFA aerosol inhaler 2 inh inhalation Q6H PRN (Reason: shortness of breath or wheezing) Print Language: Bengali Instructions: COPD (Chronic Obstructive Pulmonary Disease) (ED) Referrals: SERG DUENAS [Primary Care Provider] - 1 week
[2024-03-21 16:35] LABS: Basophils Percent Auto 0.4 % (0.2-2.0); Eosinophils Absolute Auto 0.3 10^3/uL (0.0-0.7); Eosinophils Percent Auto 3.4 % (0.9-7.0); Hematocrit 41.2 % (42.0-54.0); Hemoglobin 13.7 g/dL (14.0-18.0); Immature Granulocytes Abs Auto 0.01 10^3/uL (0.00-0.03); Immature Granulocytes Pct Auto 0.1 % (0.0-0.5); Mean Corpuscular HGB Conc 33.3 g/dL (29.9-35.2); Mean Corpuscular Hemoglobin 29.7 pg (25.9-34.0); Mean Corpuscular Volume 89.4 fL (80.0-94.0); Mean Platelet Volume 9.1 fL (9.5-13.5); Monocytes Absolute Auto 0.6 10^3/uL (0.3-0.8); Monocytes Percent Auto 7.4 % (1.7-12.0); Neutrophils Absolute Auto 4.7 10^3/uL (1.4-6.5); Neutrophils Percent Auto 62.7 % (43.0-75.0); Platelet Count 202 10^3/uL (150-450); Red Blood Count 4.61 10^6/uL (4.70-6.10); Red Cell Distribution Width 13.2 % (11.0-15.0); White Blood Count 7.5 10^3/uL (4.0-11.0)
[2024-03-21 16:40] VITALS: PULSE 64
[2024-03-21] MEDS: ALBUTEROL SULFATE 2.5 MG/3 ML VIAL NEB IH (16:53)
[2024-03-21 16:54] VITALS: PULSE 62; O2SAT 95
[2024-03-21 16:57] LABS: Alanine Aminotransferase 27 U/L (16-63); Albumin Globulin Ratio 1.3; Albumin Level 3.5 g/dL (3.4-5.0); Alkaline Phosphatase 82 U/L (46-116); Anion Gap 10.1; Aspartate Amino Transferase 16 U/L (15-37); BUN Creatinine Ratio 9.7; Bilirubin Total 0.6 mg/dL (0.2-1.0); Calcium 9.2 mg/dL (8.5-10.1); Carbon Dioxide 29.2 mmol/L (21.0-32.0); Chloride 102 mmol/L (98-107); Estimated GFR (African America >60 (>=60); Estimated GFR (Non-African Ame >60 (>=60); Globulin 2.7 g/dL; Glucose 250 mg/dL (74-106); Magnesium 1.8 mg/dL (1.8-2.4); Potassium 3.3 mmol/L (3.5-5.1); Sodium 138 mmol/L (136-145); Total Protein 6.2 g/dL (6.4-8.2); Troponin I High Sensitivity 13.7 pg/mL (4.0-76.1)
[2024-03-21 17:13] LABS: INR 1.09; Prothrombin Time 11.5 sec (9.0-11.6)
[2024-03-21] MEDS: METHYLPREDNISOLONE SOD SUCC PF 125 MG/2 ML VIAL IVP (17:14)
[2024-03-21 17:20] VITALS: BP 189/92; PULSE 69; O2SAT 96
== END 2024-03-21 17:25 | disposition home or self-care (01) ==
PROVIDERS: Physician Assistant; Emergency Provider Emergency Medicine
DX: J44.9 Chronic obstructive pulmonary disease, unspecified (principal); E11.9 Type 2 diabetes mellitus without complications; I10 Essential (primary) hypertension; Z90.89 Acquired absence of other organs; Z79.899 Other long term (current) drug therapy; Z87.01 Personal history of pneumonia (recurrent); F17.210 Nicotine dependence, cigarettes, uncomplicated; F12.90 Cannabis use, unspecified, uncomplicated
CPT/HCPCS: 36415; 71045; 80053; 83735; 83880; 84484; 85025; 85610; 93005; 94640; 96374; 99285; J2919

== ENCOUNTER 2024-04-16 15:25 | Emergency (ER) | payer MEDICARE, SELFPAY ==
--- OUTSIDE RECORDS SUMMARY | 2024-04-16 15:35 | XMS_ITS | CCD ---
Author Organization [facility] CliniSyla Care Team Providers Care Barge Hand Name Role Phone REQUEST, DR NONE LISTED [...] REQUEST, NONE LISTED Primary Care Unavaila ble TAVARES, KENTRELL Consulting Unavailable REGINALDO LUCIO Consulting Unavailable TAVARES, KENTRELL Admitting Unavailable TAVARES, KENTRELL Attending Unavailable KENTRELL CHAPIN Consulting Unavailable REQUEST, NONE LISTED Primary Care [...] Care Unavaila ble ELKIN, GONSALO Consulting Unavailable STEVENS, DR NASH Ribeiro Admitting Unavailable STEVENS, DR NASH Ribeiro Attending Unavailable STEVENS, DR [...] Attending Unavailable GRECHNY ., PALMIRA FOX Consulting UnavailREGINALDO Ferrell Consulting Unavailable SISTER, SIMONE Consulting Unavailable AIMEE ., MARIYA Consulting Unavailable Allergies Allergy Classification Reported Allergen(s) Allergy Type Date of Onset Reaction(s) Facility (1 source) Penicillin Drug Allergy [facility] Repository Problems Active Problems Problem Classification [...] 03-27-2023 Episodic Other aftercare (1 source) Other roasterman (current) drug therapy; Translations: [OTH 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 Garima Pulliam Basophils/100 WBC (Bld) 0.3 % Normal 0.2-2.0 [facility] Comment on above: Performed By: #### C BC ####[facility] Pnahkihojx[address] [place] [address]DrAdalberto Pulliam EO # 0.3 103/ul Normal 0.0-0.7 [facility] Comment on above: Performed By: #### C BC ####[facility] [address] [place], [place] [address]Dr. Garima Pulliam Eosinophils/100 WBC (Bld) 2.8 % Normal 0.9-7.0 [facility] Comment on above: Performed By: #### C BC ####[facility] [address] [place], [place] [address]Dr. Garima Pulliam Erythrocyte distribution width (RBC) [Ratio] 13.4 % Normal 11.0-15.0 [facility] Comment on above: Performed By: #### C BC ####[facility] Tewedejdty[address] [place], [place] [address]Dr. Garima Pulliam Hematocrit (Bld) [Volume fraction] 45.7 % Normal 42.0-54.0 [facility] Comment on above: Performed By: #### C BC ####[facility] Uppwabzfmx[address] [place], [place] [address]Dr. Garima Pulliam Hemoglobin (Bld) [Mass/Vol] 15.2 g/dL Normal 14.0-18.0 [facility] Comment on above: Performed By: #### C BC ####[facility] [address]kvqvnzf[address] [place], [place] [address]Dr. Garima Pulliam IG # 0.02 10e3/ul Normal 0.00-0.03 [facility] Comment on above: Performed By: #### C BC ####[facility] Mclqxefmbl[address] [place], [place] [address]Dr. Garima Pulliam IG % 0.2 % Normal 0.0-0.5 [facility] Comment on above: Performed By: #### C BC ####[facility] Tarxumvnbp[address] [place], [place] [address]Dr. Garima Pulliam LYMPH # 2.1 103/ul Normal 1.2-3.8 [facility] Comment on above: Performed By: #### C BC ####[facility] Bnigiurgkv[address] [place], [place] [address]Dr. Garima Pulliam Lymphocytes/100 WBC (Bld) 23.7 % Normal 20.5-60.0 [facility] Comment on above: Performed By: #### C BC ####[facility] [address]ik[address] [place] [address]Dr. Garima Heraclio MANUAL DIFF REQ NO Normal [facility] Comment on above: Performed By: #### C BC ####[facility] Gdcspssaid[address] [place] [address]Dr. Garima Pulliam MCH (RBC) [Entitic mass] 30.4 pg Normal 25.9-34.0 [facility] Comment on above: Performed By: #### C BC ####[facility] Vbbrztsdgu36[address] [place] [address]Dr. Garima Heraclio MCHC (RBC) [Mass/Vol] 33.3 g/dL Normal 29.9-35.2 [facility] Comment on above: Performed By: #### C BC ####[facility] Jgpxbxxras[address] [place] [address]Dr. Chapisrenu Pulliam MCV (RBC) [Entitic vol] 91.4 fL Normal 80.0-94.0 [facility] Comment on above: Performed By: #### C BC ####[facility] [address]ikhtowof[address] [place], [place] [address]Dr. Garima Heraclio MONO # 0.7 103/ul Normal 0.3-0.8 [facility] Comment on above: Performed By: #### C BC ####[facility] Aipjjbzthh[address] [place], [place] [address]Dr. Chapisrenu Pulliam Monocytes/100 WBC (Bld) 8.3 % Normal 1.7-12.0 [facility] Comment on above: Performed By: #### C BC ####[facility] Mrwvqtqlcf[address] [place] [address]Dr. Garima Pulliam NEUT # 5.8 103/ul Normal 1.4-6.5 [facility] Comment on above: Performed By: #### C BC ####[facility] Zbrxeiruiq697[address] [place], [place] [address]Dr. Garima Pulliam Neutrophils/100 WBC (Bld) 64.7 % Normal 43.0-75.0 [facility] Comment on above: Performed By: #### C BC ####[facility] Qdoznfwddf[address] [place] [address]Dr. Garima Pulliam Platelet mean volume (Bld) [Entitic vol] 8.6 fL Critically low 9.5-13.5 [facility] Comment on above: Performed By: #### C BC ####[facility] Kfvvjuifxn[address] [place] [address]Dr. Garima Pulliam PLT 230 103/ul Normal 150-450 [facility] Comment on above: Performed By: #### C BC ####[facility] Fqiyzbhrbx101[address] [place] [address]Dr. Chapisrenu Heraclio RBC 5.00 106/ul Normal 4.70-6.10 [facility] Comment on above: Performed By: #### C BC ####[facility] Xaztbwruqy29[address] [place] [address]Dr. Garima Heraclio WBC 9.0 103/ul Normal 4.0-11.0 [facility] Comment on above: Performed By: #### C BC ####[facility] Wywjevudwh[address] [place] [address]Dr. Chapisrenu Pulliam MAGNESIUMon 04-04-2023 Magnesium [Mass/Vol] 1.8 mg/dL Normal 1.8-2.4 [facility] Comment on above: Performed By: #### M G ####[facility] [address]ysf[address]fg[address] [place] [address]Dr. Chapisrenu Pulliam PROF 14(COMP METB)on 023 Albumin [Mass/Vol] 3.8 g/dL Normal 3.4-5.[address] [facility] Comment on above: Performed By: #### C MP ####[facility] Dvj[address]yuavw[address] [place] [address]Dr. Garima Pulliam Albumin/Globulin [Mass ratio] 1.2 {ratio} Normal [facility] Comment on above: Performed By: #### C MP ####[facility] Pzpsufjygi8562 [place] [address]Dr. Garima Heraclio ALP [Catalytic activity/Vol] 84 U/L Normal 46-116 [facility] Comment on above: Performed By: #### C MP ####[facility] Mztzjbvtvx07[address] [place] [id number]. Garima Pulliam ALT [Catalytic activity/Vol] 31 U/L Normal 16-63 [facility] Comment on above: Performed By: #### C MP ####[facility] Dlrgndputs4164 [place] [address]Dr. Garima Pulliam Anion gap [Moles/Vol] 12.2 mmol/L Normal [facility] Comment on above: Performed By: #### C MP ####[facility] Rhcpynjouo[address] [place] [address]Dr. Garima Pulliam AST [Catalytic activity/Vol] 23 U/L Normal 15-37 [facility] Comment on above: Performed By: #### C MP ####[facility] Ewqosourhe[address] [place], [place] [address]Dr. Garima Pulliam Bilirubin [Mass/Vol] 0.5 mg/dL Normal 0.2-1.0 [facility] Comment on above: Performed By: #### C MP ####[facility] Feytqxrtgv[address] [place], [place] [address]Dr. Garima Pulliam Calcium [Mass/Vol] 9.2 mg/dL Normal 8.5-10.[address] [facility] Comment on above: Performed By: #### C MP ####[facility] Hwnpxyaufi[address] [place], [place] [address]Dr. Garima Pulliam Chloride [Moles/Vol] 103 mmol/L Normal 98-107 [facility] Comment on above: Performed By: #### C MP ####[facility] Slxygnjpay9814 [place] [address]Dr. Garima Pulliam CO2 [Moles/Vol] 28.5 mmol/L Normal 21.0-32.0 [facility] Comment on above: Performed By: #### C MP ####[facility] Hcvjknnhip15[address] [place], [place] [address]Dr. Garima Pulliam Creatinine [Mass/Vol] 0.74 mg/dL Normal 0.70-1.30 [facility] Comment on above: Performed By: #### C MP ####[facility] Wasypjjsla[address] [place] [address]Dr. Garima Pulliam EGFR-AF MONGOLIAN >60 Normal >=60 [facility] Comment on above: Performed By: #### C MP ####[facility] Fmooboskfy1396 [place] [address]Dr. Garima Pulliam EGFR-NON AF MONGOLIAN >60 Normal >=60 [facility] Comment on above: Performed By: #### C MP ####[facility] Iqeouhaclt9519 [place] [phone]. Garima Heraclio Globulin (S) [Mass/Vol] 3.1 g/dL Normal [facility] Comment on above: Performed By: #### C MP ####[facility] Oxexxxsvxd8[address] [place], [place] [address]Dr. Garima Heraclio Glucose [Mass/Vol] 93 mg/dL Normal 74-106 [facility] Comment on above: Performed By: #### C MP ####[facility] Ijhioigsht[address] [place], [place] [address]Dr. Garima Heraclio Potassium [Moles/Vol] 3.7 mmol/L Normal 3.5-5.1 [facility] Comment on above: Performed By: #### C MP ####[facility] Cxpewhkkkf[address] [place], [place] [address]Dr. Garima Heraclio Protein [Mass/Vol] 6.9 g/dL Normal 6.4-8.2 [facility] Comment on above: Performed By: #### C MP ####[facility] Zastiwsfgi[address] [place] [address]Dr. Garima Heraclio Sodium [Moles/Vol] 140 mmol/L Normal 136-145 [facility] Comment on above: Performed By: #### C MP ####[facility] Ibhbqxjhvs226[address] [place], [place] [address]Dr. Garima Pulliam Urea nitrogen [Mass/Vol] 8.0 mg/dL Normal 7.0-18.0 [facility] Comment on above: Performed By: #### C MP ####[facility] Bilzmiaqwg224[address] [place], [place] [address]Dr. Garima Pulliam Urea nitrogen/Creatinine [Mass ratio] 10.8 mg/mg Normal [facility] Comment on above: Performed By: #### C DAVID ####[facility] [address]psawpgsbt[address] [place] [address]Dr. Garima Pulliam AMMONIAon 03-30-2023 Ammonia (P) [Moles/Vol] 11 umol/L Normal 11-32 [facility] Comment on above: Performed By: #### A MM ####[facility] Umlzatbkix[address] [place], [place] [address]Dr. Garima Pulliam CARDIAC NASH ADMITon 023 CK [Catalytic activity/Vol] 232 U/L Normal 39-308 [facility] Comment on above: Performed By: #### C DAVID, NANCY ####[facility] Ikxxzcrxgh15[address] [place], [place] [address]Dr. Chapisrenu Pulliam CK.MB [Mass/Vol] 4.83 ng/mL Critically high <=3.60 [facility] Comment on above: Performed By: #### C DAVID, NANCY ####[facility] Lfmlrnrpqc[address] [place], [place] [address]Dr. Garima Heraclio HSTROP 10.5 pg/mL Normal 4.0-76.1 [facility] Comment on above: Result Comment: CUT- OFF POINTS HAVE BEEN ESTABLISHED BASED ON THE FOURTH UNIVERSAL DEFINITIONS OF MYOCARDIALINFARCTION. THE UPPER REFERENCE LIMIT (URL) OF TROPONIN, DEFINED THE 99TH PERCENTILE OFcTnI DISTRIBUTION IN A REFERENCE POPULATION, HAS BEEN CONFIRMED THE DECISION THRESHOLDFOR W[place] DIAGNOSIS. Performed By: #### C DAVID, NANCY ####[facility] Ptyfsicwxd[address] [place], [place] [address]Dr. Chapisrenu Pulliam DORIS 79 ng/mL Normal 16-96 [facility] Comment on above: Performed By: #### C DAVID, ERVINDM ####[facility] Ihdtugobdy[address] [place], [place] [address]Dr. Garima Heraclio CBC AUTO DIFFon 03-30-2023 BASO # 0.0 103/ul Normal 0.0-0.1 [facility] Comment on above: Performed By: #### C BC ####[facility] Qetcpfctbq0314 [place] [phone]. Garima Pulliam Basophils/100 WBC (Bld) 0.1 % Critically low 0.2-2.0 [facility] Comment on above: Performed By: #### C BC ####[facility] Dtacjemheb4712 [place] [phone]. Garima Pulliam EO # 0.3 103/ul Normal 0.0-0.7 [facility] Comment on above: Performed By: #### C BC ####[facility] Qdprfwxqpf[address] [place], [place] [address]Dr. Garima Pulliam Eosinophils/100 WBC (Bld) 3.3 % Normal 0.9-7.0 [facility] Comment on above: Performed By: #### C BC ####[facility] Mttelzurhb[address] [place], [place] [address]Dr. Garima Pulliam Erythrocyte distribution width (RBC) [Ratio] 13.5 % Normal 11.0-15.0 [facility] Comment on above: Performed By: #### C BC ####[facility] Jygsljo[address] [place], [place] [address]Dr. Garima Pulliam Hematocrit (Bld) [Volume fraction] 42.9 % Normal 42.0-54.0 [facility] Comment on above: Performed By: #### C BC ####[facility] Ithyinpysy[address] [place], [place] [address]Dr. Garima Pulliam Hemoglobin (Bld) [Mass/Vol] 13.9 g/dL Critically low 14.0-18.0 [facility] Comment on above: Performed By: #### C BC ####[facility] V[address]unkpwbq[address] [place] [address]Dr. Garima Pulliam IG # 0.01 10e3/ul Normal 0.00-0.03 [facility] Comment on above: Performed By: #### C BC ####[facility] [address]um[address]pat[address] [place], [place] [address]Dr. Garima Pulliam IG % 0.1 % Normal 0.0-0.5 [facility] Comment on above: Performed By: #### C BC ####[facility] Pslbxiicrd[address] [place] [address]Dr. Garima Pulliam LYMPH # 1.7 103/ul Normal 1.2-3.8 [facility] Comment on above: Performed By: #### C BC ####[facility] Bzt[address]dntbv9[address] [place], [place] [address]Tk. Garima Pulliam Lymphocytes/100 WBC (Bld) 22.8 % Normal 20.5-60.0 [facility] Comment on above: Performed By: #### C BC ####[facility] O[address]zzxvhww[address] [place] [phone]. Garima Heraclio MANUAL DIFF REQ NO Normal [facility] Comment on above: Performed By: #### C BC ####[facility] Ctclaisrqn3568 [place] [phone]. Garima Heraclio MCH (RBC) [Entitic mass] 30.5 pg Normal 25.9-34.0 [facility] Comment on above: Performed By: #### C BC ####[facility] Xflgpscmto3932 [place] [phone]. Garima Pulliam MCHC (RBC) [Mass/Vol] 32.4 g/dL Normal 29.9-35.2 [facility] Comment on above: Performed By: #### C BC ####[facility] Kvmpllmrfc3605 [place] [phone]. Garima Heraclio MCV (RBC) [Entitic vol] 94.1 fL Critically high 80.0-94.0 [facility] Comment on above: Performed By: #### C BC ####[facility] Qhaxoktzzg2239 [place] [id number]. Garima Heraclio MONO # 0.7 103/ul Normal 0.3-0.8 [facility] Comment on above: Performed By: #### C BC ####[facility] Vnuvyixply2750 [place] [address]Dr. Garima Heraclio Monocytes/100 WBC (Bld) 8.6 % Normal 1.7-12.0 [facility] Comment on above: Performed By: #### C BC ####[facility] Rfuazgdrox7136 [place] [address]Dr. Garima Pulliam NEUT # 4.9 103/ul Normal 1.4-6.5 [facility] Comment on above: Performed By: #### C BC ####[facility] Amyjbvhkkt6192 [place] [address]Dr. Garima Pulliam Neutrophils/100 WBC (Bld) 65.1 % Normal 43.0-75.0 [facility] Comment on above: Performed By: #### C BC ####[facility] Rgpyzzbpnx3328 [place] [phone]. Garima Pulliam Platelet mean volume (Bld) [Entitic vol] 8.5 fL Critically low 9.5-13.5 [facility] Comment on above: Performed By: #### C BC ####[facility] Rebxprdyta3266 [place] [phone]. Garima Pulliam PLT 219 103/ul Normal 150-450 [facility] Comment on above: Performed By: #### C BC ####[facility] Zgigrrjwmp1715 [place] [address]Dr. Garima Pulliam RBC 4.56 106/ul Critically low 4.70-6.10 [facility] Comment on above: Performed By: #### C BC ####[facility] Tmwzziiqgz5612 [place] [phone]. Garima Pulliam WBC 7.6 103/ul Normal 4.0-11.0 [facility] Comment on above: Performed By: #### C BC ####[facility] Lqikwaucwt4526 [place] [phone]. Garima Pulliam LACTATE/LACTIC ACIDon 2022 Lactate [Moles/Vol] 1.2 mmol/L Normal 0.4-2.0 [facility] Comment on above: Performed By: #### L ACT ####[facility] Nienpsgvbe8326 [place] [phone]. Garima Pulliam MAGNESIUMon 03-30-2023 Magnesium [Mass/Vol] 1.8 mg/dL Normal 1.8-2.4 [facility] Comment on above: Performed By: #### M G ####[facility] Gzhroxdtmv78[address] [place] [address]Dr. Garima Pulliam PROF 14(COMP METB)on 023 Albumin [Mass/Vol] 3.5 g/dL Normal 3.4-5.[address] [facility] Comment on above: Performed By: #### C DAVID, CMAANA ROSA ####[facility] Euvjgbaoda[address] [place] [address]Dr. Garima Pulliam Albumin/Globulin [Mass ratio] 1.2 {ratio} Normal [facility] Comment on above: Performed By: #### C DAVID, NANCY ####[facility] Pyiqradhks0685 [place] [address]Dr. Garima Pulliam ALP [Catalytic activity/Vol] 85 U/L Normal 46-116 [facility] Comment on above: Performed By: #### C DAVID, CMAANA ROSA ####[facility] Slkvsuwcyy88[address] [place] [address]Dr. Garima Pulliam ALT [Catalytic activity/Vol] 29 U/L Normal 16-63 [facility] Comment on above: Performed By: #### C DAVID, CMAANA ROSA ####[facility] Gfrtflcroo[address] [place], [place] [address]Dr. Garima Pulliam Anion gap [Moles/Vol] 8.0 mmol/L Normal [facility] Comment on above: Performed By: #### C DAVID, CMAANA ROSA ####[facility] Wedzbilhmp0508 [place] [address]Dr. Garima Pulliam AST [Catalytic activity/Vol] 18 U/L Normal 15-37 [facility] Comment on above: Performed By: #### C DAVID, CMADM ####[facility] Ankdzskxad8[address] [place] [address]Dr. Garima Pulliam Bilirubin [Mass/Vol] 0.4 mg/dL Normal 0.2-1.0 [facility] Comment on above: Performed By: #### C DAVID, CMAANA ROSA ####[facility] Nlssmhfrok4343 [place] [address]Dr. Garima Pulliam Calcium [Mass/Vol] 8.8 mg/dL Normal 8.5-10.[address] [facility] Comment on above: Performed By: #### C DAVID, NANCY ####[facility] Krrgcwhwed[address] [place] [address]Dr. Garima Pulliam Chloride [Moles/Vol] 108 mmol/L Critically high 98-107 [facility] Comment on above: Performed By: #### C DAVID, NANCY ####[facility] Kemdwcfmre5604 [place] [address]Dr. Garima Pulliam CO2 [Moles/Vol] 29.6 mmol/L Normal 21.0-32.0 [facility] Comment on above: Performed By: #### C NANCY HERNANDEZ ####[facility] [address]xnpbwnyww[address] [place], [place] [address]Dr. Chapisrenu Pulliam Creatinine [Mass/Vol] 0.77 mg/dL Normal 0.70-1.30 [facility] Comment on above: Performed By: #### C NANCY HERNANDEZ ####[facility] Qspwoaotkz[address] [place], [place] [address]Dr. Garima Heraclio EGFR-AF MONGOLIAN >60 Normal >=60 [facility] Comment on above: Performed By: #### C NANCY HERNANDEZ ####[facility] Vageejdrvq[address] [place], [place] [address]Dr. Garima Heraclio EGFR-NON AF MONGOLIAN >60 Normal >=60 [facility] Comment on above: Performed By: #### C NANCY HERNANDEZ ####[facility] Jnmcameosh1637 [place] [address]Dr. Chapisrenu Pulliam Globulin (S) [Mass/Vol] 2.8 g/dL Normal [facility] Comment on above: Performed By: #### C NANCY HERNANDEZ ####[facility] Yrxellftee7012 [place] [address]Dr. Garima Pulliam Glucose [Mass/Vol] 207 mg/dL Critically high 74-106 [facility] Comment on above: Performed By: #### C NANCY HERNANDEZ ####[facility] Ieukfxfzye[address] [place], [place] [address]Dr. Garima Pulliam Potassium [Moles/Vol] 4.6 mmol/L Normal 3.5-5.1 [facility] Comment on above: Performed By: #### C DAVID, NANCY ####[facility] Vzdixahaab7048 [place] [address]Dr. Garima Pulliam Protein [Mass/Vol] 6.3 g/dL Critically low 6.4-8.2 [facility] Comment on above: Performed By: #### C DAVID, NANCY ####[facility] Cevaumleex3[address] [place] [address]Dr. Garima Pulliam Sodium [Moles/Vol] 141 mmol/L Normal 136-[address] [facility] Comment on above: Performed By: #### C DAVID, NANCY ####[facility] Ixreawpodo6859 [place] [address]Dr. Garima Pulliam Urea nitrogen [Mass/Vol] 9.0 mg/dL Normal 7.0-18.0 [facility] Comment on above: Performed By: #### C DAVID, NANCY ####[facility] Fcjyzhbpsx5012 [place] [address]Dr. Garima Pulliam Urea nitrogen/Creatinine [Mass ratio] 11.7 mg/mg Normal [facility] Comment on above: Performed By: #### C DAVID, NANCY ####[facility] Kayhyqojxb2871 [place] [address]Dr. Garima Pulliam XR CHEST 1 Von 03-30-2023 XR CHEST 1 V Normal [facility] BNPon 03-27-2023 Natriuretic peptide B (Bld) [Mass/Vol] 251.0 pg/mL Normal <=900.0 [facility] Comment on above: Performed By: #### C MP, BNP, LIPID ####[facility] Cqlkmarcmq8440 [place] [address]Dr. Garima Pulliam GLYCOHEMOGLOBIN A1Con 2022 ADA RECOMMENDATION SEE BELOW Normal [facility] Comment on above: Result Comment: ADA RECOMMENDED LIMIT 4.0 - 6.0 ADA THERAPEUTIC TARGET < 7.0 ACTION SUGGESTED > 7.0 Performed By: #### A 1C ####[facility] Lfqesnwban0410 [place] [address]Dr. Garima Pulliam Glucose [Mass/Vol] 180 mg/dL Normal [facility] Comment on above: Performed By: #### A 1C ####[facility] Ajagjyrcyb[address] [place], [place] [address]Dr. Garima Pulliam HbA1c (Bld) [Mass fraction] 7.9 % Critically high 4.5-6.2 [facility] Comment on above: Performed By: #### A 1C ####[facility] Cuhaavhcna[address] [place], [place] [address]Dr. Garima Pulliam HEMOGRAM AND PLATELon 2022 Hematocrit (Bld) [Volume fraction] 45.7 % Normal 42.0-54.0 [facility] Comment on above: Performed By: #### H H ####[facility] Ctmflzfbir[address] [place], [place] [address]Dr. Garima Pulliam Hemoglobin (Bld) [Mass/Vol] 15.1 g/dL Normal 14.0-18.0 [facility] Comment on above: Performed By: #### H H ####[facility] Nbzlvivdif[address] [place], [place] [address]Dr. Garima Pulliam MCH (RBC) [Entitic mass] 30.0 pg Normal 25.9-34.0 [facility] Comment on above: Performed By: #### H H ####[facility] Ta[address]myhfvq[address] [place], [place] [address]Dr. Garima Pulliam MCHC (RBC) [Mass/Vol] 33.0 g/dL Normal 29.9-35.2 [facility] Comment on above: Performed By: #### H H ####[facility] Pmxubanhmi[address] [place], [place] [address]Dr. Chapisrenu Pulliam MCV (RBC) [Entitic vol] 90.7 fL Normal 80.0-94.0 [facility] Comment on above: Performed By: #### H H ####[facility] Urkwztodcl94[address] [place], [place] [address]Dr. Garima Pulliam PLT 222 103/ul Normal 150-450 [facility] Comment on above: Performed By: #### H H ####[facility] Zurcxrsumj6738 [place] [phone]. Garima Pulliam RBC 5.04 106/ul Normal 4.70-6.10 [facility] Comment on above: Performed By: #### H H ####[facility] Fogogxxglw7341 [place] [id number]. Garima Pulliam WBC 8.7 103/ul Normal 4.0-11.0 [facility] Comment on above: Performed By: #### H H ####[facility] Xvuljtdktx7725 [place] [phone]. Garima Pulliam LIPID PROFILEon 03-27-2023 CHOL-HDL RATIO NORM SEE BELOW Normal [facility] Comment on above: Result Comment: 3.3 - 4.4 LOW RISK 4.4 - 7.1 AVERAGE RISK 7.1 - 11.0 MODERATE RISK >11.0 HIGH RISK Performed By: #### C MP, BNP, LIPID ####[facility] Vcuvozbczj39[address] [place] [address]Dr. Garima Pulliam Cholesterol [Mass/Vol] 113 mg/dL Normal <=200 [facility] Comment on above: Performed By: #### C MP, BNP, LIPID ####[facility] Ddqidzvulo1697 [place] [address]Dr. Garima Pulliam Cholesterol in HDL [Mass/Vol] 51 mg/dL Normal 40-60 [facility] Comment on above: Performed By: #### C MP, BNP, LIPID ####[facility] Smilfxdmfn6377 [place] [id number]. Garima Pulliam Cholesterol in LDL [Mass/Vol] 49.8 mg/dL Normal [facility] Comment on above: Performed By: #### C MP, BNP, LIPID ####[facility] Kjdnyciiva1017 [place] [id number]. Garima Pulliam Cholesterol.total/Cho lesterol in HDL [Mass ratio] 2.2 {ratio} Normal [facility] Comment on above: Performed By: #### C MP, BNP, LIPID ####[facility] Oanavkzgso9289 [place] [address]Dr. Garima Pulliam HDL NORMAL > or = 60 mg/dl - LOW CARDIOVASCULAR RISK <40 mg/dl - HIGH CARDIOVASCULAR RISK Normal [facility] Comment on above: Performed By: #### C MP, BNP, LIPID ####[facility] Ujzmgxydgb3299 [place] [address]Dr. Garima Pulliam LDL CALC NORMAL SEE BELOW Normal [facility] Comment on above: Result Comment: <100 mg/dl OPTIMAL 100 - 129 mg/dl NEAR OR ABOVE OPTIMAL 130 - 159 mg/dl BORDERLINE HIGH 160 - 189 mg/dl HIGH >190 mg/dl VERY HIGH Performed By: #### C MP, BNP, LIPID ####[facility] Ljfdofymux9218 [place] [address]Dr. Garima Pulliam Triglyceride [Mass/Vol] 61 mg/dL Normal <=150 [facility] Comment on above: Performed By: #### C MP, BNP, LIPID ####[facility] Mmkstfycua5876 [place] [address]Dr. Garima Pulliam VLDL CALC 12.2 mg/dL Normal [facility] Comment on above: Performed By: #### C MP, BNP, LIPID ####[facility] Myxximvetp4383 [place] [address]Dr. Garima Pulliam PROF 14(COMP METB)on 023 Albumin [Mass/Vol] 3.5 g/dL Normal 3.4-5.[address] [facility] Comment on above: Performed By: #### C MP, BNP, LIPID ####[facility] Qisloeotbb4635 [place] [address]Dr. Garima Pulliam Albumin/Globulin [Mass ratio] 1.2 {ratio} Normal [facility] Comment on above: Performed By: #### C MP, BNP, LIPID ####[facility] Saasbtpxhz4023 [place] [address]Dr. Garima Pulliam ALP [Catalytic activity/Vol] 82 U/L Normal 46-116 [facility] Comment on above: Performed By: #### C MP, BNP, LIPID ####[facility] Cboarhhxek6586 [place] [address]Dr. Garima Pulliam ALT [Catalytic activity/Vol] 33 U/L Normal 16-63 [facility] Comment on above: Performed By: #### C MP, BNP, LIPID ####[facility] Bvdmjlukzh7176 [place] [address]Dr. Garima Pulliam Anion gap [Moles/Vol] 9.9 mmol/L Normal [facility] Comment on above: Performed By: #### C MP, BNP, LIPID ####[facility] Qqdcjczzdj1351 [place] [address]Dr. Garima Pulliam AST [Catalytic activity/Vol] 24 U/L Normal 15-37 [facility] Comment on above: Performed By: #### C MP, BNP, LIPID ####[facility] Zzfjzfybtk3172 [place] [address]Dr. Garima Pulliam Bilirubin [Mass/Vol] 0.6 mg/dL Normal 0.2-1.0 [facility] Comment on above: Performed By: #### C MP, BNP, LIPID ####[facility] Esoxssbqpx6146 [place] [address]Dr. Garima Pulliam Calcium [Mass/Vol] 9.2 mg/dL Normal 8.5-10.[address] [facility] Comment on above: Performed By: #### C MP, BNP, LIPID ####[facility] Avwowdhfmc0043 [place] [address]Dr. Garima Pulliam Chloride [Moles/Vol] 106 mmol/L Normal 98-107 [facility] Comment on above: Performed By: #### C MP, BNP, LIPID ####[facility] Olsmwjrjlw1134 [place] [address]Dr. Garima Pulliam CO2 [Moles/Vol] 32.3 mmol/L Critically high 21.0-32.0 [facility] Comment on above: Performed By: #### C MP, BNP, LIPID ####[facility] Swhmhjjale3037 [place] [address]Dr. Garima Pulliam Creatinine [Mass/Vol] 0.70 mg/dL Normal 0.70-1.30 [facility] Comment on above: Performed By: #### C MP, BNP, LIPID ####[facility] Rrbpjuqkml3960 [place] [phone]. Garima Pulliam EGFR-AF MONGOLIAN >60 Normal >=60 [facility] Comment on above: Performed By: #### C MP, BNP, LIPID ####[facility] Votfknqbsh0809 [place] [phone]. Garima Pulliam EGFR-NON AF MONGOLIAN >60 Normal >=60 [facility] Comment on above: Performed By: #### C MP, BNP, LIPID ####[facility] Jvayqfamub0066 [place] [address]Dr. Garima Pulliam Globulin (S) [Mass/Vol] 2.9 g/dL Normal [facility] Comment on above: Performed By: #### C MP, BNP, LIPID ####[facility] Hpwabhudoq1503 [place] [address]Dr. Garima Pulliam Glucose [Mass/Vol] 111 mg/dL Critically high 74-106 [facility] Comment on above: Performed By: #### C MP, BNP, LIPID ####[facility] Vwlkzhzgpj3856 [place] [address]Dr. Garima Pulliam Potassium [Moles/Vol] 4.2 mmol/L Normal 3.5-5.1 [facility] Comment on above: Performed By: #### C MP, BNP, LIPID ####[facility] Mpprjaabqo5397 [place] [address]Dr. Garima Pulliam Protein [Mass/Vol] 6.4 g/dL Normal 6.4-8.[address] [facility] Comment on above: Performed By: #### C MP, BNP, LIPID ####[facility] Bnrgmthaxn2942 [place] [address]Dr. Garima Pulliam Sodium [Moles/Vol] 144 mmol/L Normal 136-[address] [facility] Comment on above: Performed By: #### C MP, BNP, LIPID ####[facility] Mxbwlkrcns4055 [place] [address]Dr. Garima Pulliam Urea nitrogen [Mass/Vol] 7.0 mg/dL Normal 7.0-18.0 [facility] Comment on above: Performed By: #### C MP, BNP, LIPID ####[facility] Vufxthqwhm[address] [place], [place] [address]Dr. Garima Pulliam Urea nitrogen/Creatinine [Mass ratio] 10.0 mg/mg Normal [facility] Comment on above: Performed By: #### C MP, BNP, LIPID ####[facility] Uqecmacvwk97[address] [place], [place] [address]Dr. Garima Pulliam BNPon 03-22-2023 Natriuretic peptide B (Bld) [Mass/Vol] 103.0 pg/mL Normal <=900.0 [facility] Comment on above: Performed By: #### B BUSINESS EDUCATION INSTRUCTOR, BMP ####[facility] Dyjhwuhctq136[address] [place], [place] [address]Dr. Garima Pulliam CBC AUTO DIFFon 03-22-2023 BASO # 0.0 103/ul Normal 0.0-0.1 [facility] Comment on above: Performed By: #### C BC ####[facility] Yajkpcgvex[address] [place], [place] [address]Dr. Garima Heraclio Basophils/100 WBC (Bld) 0.3 % Normal 0.2-2.0 [facility] Comment on above: Performed By: #### C BC ####[facility] Phmqmsrhvy946[address] [place], [place] [address]Dr. Garima Pulliam EO # 0.2 103/ul Normal 0.0-0.7 [facility] Comment on above: Performed By: #### C BC ####[facility] Oiullsxvrk6640[address] [place], [place] [address]Dr. Garima Heraclio Eosinophils/100 WBC (Bld) 2.2 % Normal 0.9-7.0 [facility] Comment on above: Performed By: #### C BC ####[facility] Mkakumczec679[address] [place], [place] [address]Dr. Garima Pulliam Erythrocyte distribution width (RBC) [Ratio] 13.2 % Normal 11.0-15.0 [facility] Comment on above: Performed By: #### C BC ####[facility] Atccbrsvkf9613 [place] [address]Dr. Garima Pulliam Hematocrit (Bld) [Volume fraction] 43.4 % Normal 42.0-54.0 [facility] Comment on above: Performed By: #### C BC ####[facility] Lymluofgvz7255 [place] [address]Dr. Garima Heraclio Hemoglobin (Bld) [Mass/Vol] 14.3 g/dL Normal 14.0-18.0 [facility] Comment on above: Performed By: #### C BC ####[facility] Hfnwmrjtrh2622 [place] [address]Dr. Garima Pulliam IG # 0.02 10e3/ul Normal 0.00-0.03 [facility] Comment on above: Performed By: #### C BC ####[facility] Mxnumhhywx1056 [place] [address]Dr. Garima Pulliam IG % 0.3 % Normal 0.0-0.5 [facility] Comment on above: Performed By: #### C BC ####[facility] Bxlawejbuo0705 [place] [address]Dr. Chapisrenu Pulliam LYMPH # 2.0 103/ul Normal 1.2-3.8 [facility] Comment on above: Performed By: #### C BC ####[facility] Awpuzyutqe1307 [place] [address]Dr. Garima Pulliam Lymphocytes/100 WBC (Bld) 24.8 % Normal 20.5-60.0 [facility] Comment on above: Performed By: #### C BC ####[facility] Kkwhoapdvq4377 [place] [address]Dr. Chapisrenu Pulliam MANUAL DIFF REQ NO Normal [facility] Comment on above: Performed By: #### C BC ####[facility] Islmveekrw135[address] [place], [place] [address]Dr. Garima Heraclio MCH (RBC) [Entitic mass] 30.0 pg Normal 25.9-34.0 [facility] Comment on above: Performed By: #### C BC ####[facility] Dqglllbjrm[address] [place], [place] [address]Dr. Garima Pulliam MCHC (RBC) [Mass/Vol] 32.9 g/dL Normal 29.9-35.2 [facility] Comment on above: Performed By: #### C BC ####[facility] Kvtidrbsev9729 [place] [phone]. Garima Pulliam MCV (RBC) [Entitic vol] 91.0 fL Normal 80.0-94.0 [facility] Comment on above: Performed By: #### C BC ####[facility] Mksemedvcn9292 [place] [phone]. Garima Heraclio MONO # 0.8 103/ul Normal 0.3-0.8 [facility] Comment on above: Performed By: #### C BC ####[facility] Bijxerhvxr8699 [place] [address]Dr. Chapisrenu Pulliam Monocytes/100 WBC (Bld) 9.7 % Normal 1.7-12.0 [facility] Comment on above: Performed By: #### C BC ####[facility] P[address]uyvjxcu[address] [place], [place] [address]Dr. Garima Pulliam NEUT # 4.9 103/ul Normal 1.4-6.5 [facility] Comment on above: Performed By: #### C BC ####[facility] Ijtodofpsq2001 [place] [phone]. Garima Heraclio Neutrophils/100 WBC (Bld) 62.7 % Normal 43.0-75.0 [facility] Comment on above: Performed By: #### C BC ####[facility] Kwblhudiuu3801 [place] [address]Dr. Garima Heraclio Platelet mean volume (Bld) [Entitic vol] 8.8 fL Critically low 9.5-13.5 [facility] Comment on above: Performed By: #### C BC ####[facility] Wcrqjmokmt1944 [place] [phone]. Garima Heraclio PLT 198 103/ul Normal 150-450 [facility] Comment on above: Performed By: #### C BC ####[facility] Heoxtctdpk4547 [place] [phone]. Garima Pulliam RBC 4.77 106/ul Normal 4.70-6.10 [facility] Comment on above: Performed By: #### C BC ####[facility] Kunlkfkbcw3954 [place] [phone]. Garima Pulliam WBC 7.9 103/ul Normal 4.0-11.0 [facility] Comment on above: Performed By: #### C BC ####[facility] Mhfifeqzxw1802 [place] [phone]. Garima Pulliam D-DIMERon 03-22-2023 D-DIMER 0.85 mg/L FEU Critically high <=0.59 [facility] Comment on above: Performed By: #### D DIM ####[facility] Zndsykhddr539[address] [place], [place] [address]Dr. Garima Pulliam D-DIMER COMMENTS SEE BELOW Normal [facility] Comment on above: Result Comment: [...] generalized hospitalization. Performed By: #### D DIM ####[facility] Niaplafwci336[address] [place], [place] [address]Dr. Garima Pulliam PROF CHEM 8 (BAS METB)on Anion gap [Moles/Vol] 6.9 mmol/L Normal [facility] Comment on above: Performed By: #### B BUSINESS EDUCATION INSTRUCTOR, BMP ####[facility] Wjjvyhycgf330[address] [place], [place] [address]Dr. Garima Pulliam Calcium [Mass/Vol] 8.9 mg/dL Normal 8.5-10.1 [facility] Comment on above: Performed By: #### B BUSINESS EDUCATION INSTRUCTOR, BMP ####[facility] Zzycpwjkms94[address] [place], [place] [address]Dr. Garima Pulliam Chloride [Moles/Vol] 101 mmol/L Normal 98-107 [facility] Comment on above: Performed By: #### B BUSINESS EDUCATION INSTRUCTOR, BMP ####[facility] Mhwxkyfapx85[address] [place], [place] [address]Dr. Garima Pulliam CO2 [Moles/Vol] 30.7 mmol/L Normal 21.0-32.0 [facility] Comment on above: Performed By: #### B BUSINESS EDUCATION INSTRUCTOR, BMP ####[facility] Dehbueioqa5837[address] [place], [place] [address]Dr. Chapisrenu Heraclio Creatinine [Mass/Vol] 0.82 mg/dL Normal 0.70-1.30 [facility] Comment on above: Performed By: #### B BUSINESS EDUCATION INSTRUCTOR, BMP ####[facility] Roamrstssw418[address] [place], [place] [address]Dr. Chapisrenu Heraclio EGFR-AF MONGOLIAN >60 Normal >=60 [facility] Comment on above: Performed By: #### B BUSINESS EDUCATION INSTRUCTOR, BMP ####[facility] Heamkouqjn467[address] [place], [place] [address]Dr. Chapisrenu Heraclio EGFR-NON AF MONGOLIAN >60 Normal >=60 [facility] Comment on above: Performed By: #### B BUSINESS EDUCATION INSTRUCTOR, BMP ####[facility] Spnuufsnrn744[address] [place], [place] [address]Dr. Chapisrenu Heraclio Glucose [Mass/Vol] 339 mg/dL Critically high 74-106 [facility] Comment on above: Performed By: #### B BUSINESS EDUCATION INSTRUCTOR, BMP ####[facility] Ckipmjsczw9150[address] [place], [place] [address]Dr. Chapisrenu Heraclio Potassium [Moles/Vol] 3.6 mmol/L Normal 3.5-5.1 [facility] Comment on above: Performed By: #### B BUSINESS EDUCATION INSTRUCTOR, BMP ####[facility] Skbarmioyg735[address] [place], [place] [address]Dr. Garima Pulliam Sodium [Moles/Vol] 135 mmol/L Critically low 136-145 [facility] Comment on above: Performed By: #### B BUSINESS EDUCATION INSTRUCTOR, BMP ####[facility] Ubabmbaumx1687[address] [place], [place] [address]Dr. Garima Pulliam Urea nitrogen [Mass/Vol] 11.0 mg/dL Normal 7.0-18.0 [facility] Comment on above: Performed By: #### B BUSINESS EDUCATION INSTRUCTOR, BMP ####[facility] Dpflcbpzkh389[address] [place], [place] [address]Dr. Garima Pulliam Urea nitrogen/Creatinine [Mass ratio] 13.4 mg/mg Normal [facility] Comment on above: Performed By: #### B BUSINESS EDUCATION INSTRUCTOR, BMP ####[facility] Xefkllyrrp0775[address] [place], [place] [address]Dr. Garima Pulliam US VERONICA DOP LEG BILon 023 US VERONICA DOP LEG BENOIT Normal [facility] BNPon 03-18-2023 Natriuretic peptide B (Bld) [Mass/Vol] 226.0 pg/mL Normal <=900.0 [facility] Comment on above: Performed By: #### B BUSINESS EDUCATION INSTRUCTOR, BMP ####[facility] Fgdffqpegg277[address] [place], [place] [address]Dr. Garima Heraclio CBC AUTO DIFFon 03-18-2023 BASO # 0.0 103/ul Normal 0.0-0.1 [facility] Comment on above: Performed By: #### C BC ####[facility] Epilybylul146[address] [place], [place] [address]Dr. Garima Heraclio Basophils/100 WBC (Bld) 0.2 % Normal 0.2-2.0 [facility] Comment on above: Performed By: #### C BC ####[facility] Hbdbzgiinl164344 [address] [place], [place] [address]Dr. Garima Pulliam EO # 0.3 103/ul Normal 0.0-0.7 [facility] Comment on above: Performed By: #### C BC ####[facility] Zuepvlvmbw357[address] [place], [place] [address]Dr. Garima Heraclio Eosinophils/100 WBC (Bld) 2.5 % Normal 0.9-7.0 [facility] Comment on above: Performed By: #### C BC ####[facility] Qpgtxsdicj846[address] [place], [place] [address]Dr. Garima Heraclio Erythrocyte distribution width (RBC) [Ratio] 13.2 % Normal 11.0-15.0 [facility] Comment on above: Performed By: #### C BC ####[facility] Dppbgboxei8764 [place] [address]DrAdalberto Pulliam Hematocrit (Bld) [Volume fraction] 45.8 % Normal 42.0-54.0 [facility] Comment on above: Performed By: #### C BC ####[facility] Unwgwkirhf9417 [place] [address]DrAdalberto Pulliam Hemoglobin (Bld) [Mass/Vol] 15.3 g/dL Normal 14.0-18.0 [facility] Comment on above: Performed By: #### C BC ####[facility] Xtqawotvbx5[address] [place], [place] [address]DrAdalberto Pulliam IG # 0.02 10e3/ul Normal 0.00-0.03 [facility] Comment on above: Performed By: #### C BC ####[facility] Xsccfopvmu99[address] [place], [place] [address]DrAdalberto Pulliam IG % 0.2 % Normal 0.0-0.5 [facility] Comment on above: Performed By: #### C BC ####[facility] Qnozwxftxo035[address] [place], [place] [address]DrAdalberto Pulliam LYMPH # 1.8 103/ul Normal 1.2-3.8 [facility] Comment on above: Performed By: #### C BC ####[facility] Slyjcprkqy413[address] [place], [place] [address]DrAdalberto Pulliam Lymphocytes/100 WBC (Bld) 18.3 % Critically low 20.5-60.0 [facility] Comment on above: Performed By: #### C BC ####[facility] Ytpavpxerr917[address] [place], [place] [address]DrAdalberto Pulliam MANUAL DIFF REQ NO Normal [facility] Comment on above: Performed By: #### C BC ####[facility] Prwpnossxq8618 [place] [address]DrAdalberto Pulliam MCH (RBC) [Entitic mass] 30.5 pg Normal 25.9-34.0 [facility] Comment on above: Performed By: #### C BC ####[facility] Hyfqraxkpl2203 [place] [address]DrAdalberto Pulliam MCHC (RBC) [Mass/Vol] 33.4 g/dL Normal 29.9-35.2 [facility] Comment on above: Performed By: #### C BC ####[facility] Ekukbwofxh3714 [place] [address]DrAdalberto Pulliam MCV (RBC) [Entitic vol] 91.2 fL Normal 80.0-94.0 [facility] Comment on above: Performed By: #### C BC ####[facility] Geaqiameop50[address] [place], [place] [address]DrAdalberto Pulliam MONO # 0.8 103/ul Normal 0.3-0.8 [facility] Comment on above: Performed By: #### C BC ####[facility] Lhucjreyxb1324[address] [place], [place] [address]DrAdalberto Pulliam Monocytes/100 WBC (Bld) 7.6 % Normal 1.7-12.0 [facility] Comment on above: Performed By: #### C BC ####[facility] Imvrwuwaci1530[address] [place], [place] [address]DrAdalberto Pulliam NEUT # 7.0 103/ul Critically high 1.4-6.5 [facility] Comment on above: Performed By: #### C BC ####[facility] Iglkmcqcrf349[address] [place], [place] [address]DrAdalberto Pulliam Neutrophils/100 WBC (Bld) 71.2 % Normal 43.0-75.0 [facility] Comment on above: Performed By: #### C BC ####[facility] Xgzzorgrlg6[address] [place], [place] [address]DrAdalberto Pulliam Platelet mean volume (Bld) [Entitic vol] 8.9 fL Critically low 9.5-13.5 [facility] Comment on above: Performed By: #### C BC ####[facility] Wstavdiqoa485[address] [place], [place] [address]DrAdalberto Pulliam PLT 217 103/ul Normal 150-450 [facility] Comment on above: Performed By: #### C BC ####[facility] Cpuwlvzfoj49[address] [place], [place] [address]Dr. Garima Pulliam RBC 5.02 106/ul Normal 4.70-6.10 [facility] Comment on above: Performed By: #### C BC ####[facility] Pxvuytoukt[address] [place], [place] [address]Dr. Garima Pulliam WBC 9.8 103/ul Normal 4.0-11.0 [facility] Comment on above: Performed By: #### C BC ####[facility] Mmpigevhof28[address] [place], [place] [address]Dr. Garima Heraclio CRPon 03-18-2023 CRP 0.1 mg/dL Normal <=1.0 [facility] Comment on above: Performed By: #### C RP ####[facility] Nbmiwmxwns9[address] [place], [place] [address]Dr. Garima Heraclio PROF CHEM 8 (BAS METB)on Anion gap [Moles/Vol] 10.4 mmol/L Normal [facility] Comment on above: Performed By: #### B BUSINESS EDUCATION INSTRUCTOR, BMP ####[facility] Mlsssdhbtd708[address] [place], [place] [address]Dr. Garima Heraclio Calcium [Mass/Vol] 8.8 mg/dL Normal 8.5-10.[address] [facility] Comment on above: Performed By: #### B BUSINESS EDUCATION INSTRUCTOR, BMP ####[facility] Efmadxpqey818[address] [place], [place] [address]Dr. Garima Heraclio Chloride [Moles/Vol] 97 mmol/L Critically low 98-107 [facility] Comment on above: Performed By: #### B BUSINESS EDUCATION INSTRUCTOR, BMP ####[facility] Usigtmwobu70264[address] [place], [place] [address]Dr. Garima Pulliam CO2 [Moles/Vol] 31.2 mmol/L Normal 21.0-32.0 [facility] Comment on above: Performed By: #### B BUSINESS EDUCATION INSTRUCTOR, BMP ####[facility] Nzevqkjsio[address] [place], [place] [address]Dr. Garima Pulliam Creatinine [Mass/Vol] 0.91 mg/dL Normal 0.70-1.30 [facility] Comment on above: Performed By: #### B BUSINESS EDUCATION INSTRUCTOR, BMP ####[facility] Nfwlnjcbuk9718 [place] [address]Dr. Garima Pulliam EGFR-AF MONGOLIAN >60 Normal >=60 [facility] Comment on above: Performed By: #### B BUSINESS EDUCATION INSTRUCTOR, BMP ####[facility] Ceklqfbsnu[address] [place], [place] [address]Dr. Garima Pulliam EGFR-NON AF MONGOLIAN >60 Normal >=60 [facility] Comment on above: Performed By: #### B BUSINESS EDUCATION INSTRUCTOR, BMP ####[facility] Psmkxzottt170[address] [place], [place] [address]Dr. Garima Pulliam Glucose [Mass/Vol] 315 mg/dL Critically high 74-106 [facility] Comment on above: Performed By: #### B BUSINESS EDUCATION INSTRUCTOR, BMP ####[facility] Esaozvmziv744[address] [place], [place] [address]Dr. Garima Pulliam Potassium [Moles/Vol] 3.6 mmol/L Normal 3.5-5.1 [facility] Comment on above: Performed By: #### B BUSINESS EDUCATION INSTRUCTOR, BMP ####[facility] Cbwjcuqtny94[address] [place], [place] [address]Dr. Garima Pulliam Sodium [Moles/Vol] 135 mmol/L Critically low 136-145 [facility] Comment on above: Performed By: #### B BUSINESS EDUCATION INSTRUCTOR, BMP ####[facility] Ncjuwwhshr[address] [place], [place] [address]Dr. Garima Pulliam Urea nitrogen [Mass/Vol] 7.0 mg/dL Normal 7.0-18.0 [facility] Comment on above: Performed By: #### B BUSINESS EDUCATION INSTRUCTOR, BMP ####[facility] Qzubhjbpdy[address] [place], [place] [address]Dr. Garima Pulliam Urea nitrogen/Creatinine [Mass ratio] 7.7 mg/mg Normal [facility] Comment on above: Performed By: #### B BUSINESS EDUCATION INSTRUCTOR, BMP ####[facility] [address]tuevjbupn[address] [place], [place] [address]Dr. Garima Pulliam SED RATE WESTERGRENon 2022 SED RATE 8 mm/hr Normal <=20 [facility] Comment on above: Performed By: #### S EDR ####[facility] Skyhhgkcdc4731 [place] [address]Dr. Garima Pulliam BNPon 03-16-2023 Natriuretic peptide B (Bld) [Mass/Vol] 241.0 pg/mL Normal <=900.0 [facility] Comment on above: Performed By: #### B BUSINESS EDUCATION INSTRUCTOR, BMP, HSTROPN ####[facility] Oslrxcxprr0181 [place] [address]Dr. Garima Pulliam CBC AUTO DIFFon 03-16-2023 BASO # 0.0 103/ul Normal 0.0-0.1 [facility] Comment on above: Performed By: #### C BC ####[facility] Zqigcnoqys[address] [place], [place] [address]Dr. Garima Heraclio Basophils/100 WBC (Bld) 0.2 % Normal 0.2-2.0 [facility] Comment on above: Performed By: #### C BC ####[facility] Zhzfawaapk7731 [place] [address]Dr. Garima Pulliam EO # 0.2 103/ul Normal 0.0-0.7 [facility] Comment on above: Performed By: #### C BC ####[facility] Evhwewxreb0144 [place] [address]Dr. Garima Heraclio Eosinophils/100 WBC (Bld) 2.7 % Normal 0.9-7.0 [facility] Comment on above: Performed By: #### C BC ####[facility] Rmaagpxsbg[address] [place], [place] [address]Dr. Garima Pulliam Erythrocyte distribution width (RBC) [Ratio] 13.1 % Normal 11.0-15.0 [facility] Comment on above: Performed By: #### C BC ####[facility] Gdqafefdmw39[address] [place], [place] [address]Dr. Garima Pulliam Hematocrit (Bld) [Volume fraction] 41.8 % Critically low 42.0-54.0 [facility] Comment on above: Performed By: #### C BC ####[facility] Eakvrlvnfg1295 [place] [address]Dr. Garima Pulliam Hemoglobin (Bld) [Mass/Vol] 14.0 g/dL Normal 14.0-18.0 [facility] Comment on above: Performed By: #### C BC ####[facility] [address]wsvnzv[address] [place] [address]Dr. Garima Pulliam IG # 0.03 10e3/ul Normal 0.00-0.03 [facility] Comment on above: Performed By: #### C BC ####[facility] Gwciwfueuq[address] [place] [address]Dr. Garima Pulliam IG % 0.3 % Normal 0.0-0.5 [facility] Comment on above: Performed By: #### C BC ####[facility] Yswitbhvge[address] [place], [place] [address]Dr. Garima Pulliam LYMPH # 2.1 103/ul Normal 1.2-3.8 [facility] Comment on above: Performed By: #### C BC ####[facility] Raerihfjaq[address] [place], [place] [address]Dr. Garima Pulliam Lymphocytes/100 WBC (Bld) 24.2 % Normal 20.5-60.0 [facility] Comment on above: Performed By: #### C BC ####[facility] Xtsqnfwzxu[address] [place], [place] [address]Dr. Garima Pulliam MANUAL DIFF REQ NO Normal [facility] Comment on above: Performed By: #### C BC ####[facility] Ucsrntvpdt26[address] [place], [place] [address]Dr. Garima Pulliam MCH (RBC) [Entitic mass] 30.2 pg Normal 25.9-34.0 [facility] Comment on above: Performed By: #### C BC ####[facility] Epwdllhqrq[address] [place] [address]Dr. Garima Pulliam MCHC (RBC) [Mass/Vol] 33.5 g/dL Normal 29.9-35.2 [facility] Comment on above: Performed By: #### C BC ####[facility] [address]dp[address] [place] [id number]. Garima Pulliam MCV (RBC) [Entitic vol] 90.1 fL Normal 80.0-94.0 [facility] Comment on above: Performed By: #### C BC ####[facility] Elxkkkiuws[address] [place] [id number]. Garima Pulliam MONO # 0.6 103/ul Normal 0.3-0.8 [facility] Comment on above: Performed By: #### C BC ####[facility] Iktjwlrdbn75[address] [place] [address]Dr. Garima Heraclio Monocytes/100 WBC (Bld) 7.4 % Normal 1.7-12.0 [facility] Comment on above: Performed By: #### C BC ####[facility] Utakuwfqtz[address] [place], [place] [address]Dr. Garima Pulliam NEUT # 5.6 103/ul Normal 1.4-6.5 [facility] Comment on above: Performed By: #### C BC ####[facility] Uucyfwwe[address] [place], [place] [address]Dr. Garima Heraclio Neutrophils/100 WBC (Bld) 65.2 % Normal 43.0-75.0 [facility] Comment on above: Performed By: #### C BC ####[facility] Tvrlbyfuoc[address] [place], [place] [address]Dr. Garima Heraclio Platelet mean volume (Bld) [Entitic vol] 8.7 fL Critically low 9.5-13.5 [facility] Comment on above: Performed By: #### C BC ####[facility] Gmsysfgzca[address] [place], [place] [address]Dr. Garima Heraclio PLT 195 103/ul Normal 150-450 [facility] Comment on above: Performed By: #### C BC ####[facility] Qppkjtyluq[address] [place] [phone]. Garima Pulliam RBC 4.64 106/ul Critically low 4.70-6.10 [facility] Comment on above: Performed By: #### C BC ####[facility] Yzosuovauv[address] [place] [address]Dr. Garima Pulliam WBC 8.6 103/ul Normal 4.0-11.0 [facility] Comment on above: Performed By: #### C BC ####[facility] Pqtusjwvgz[address] [place] [address]Dr. Garima Pulliam PROF CHEM 8 (BAS METB)on Anion gap [Moles/Vol] 6.7 mmol/L Normal [facility] Comment on above: Performed By: #### B BUSINESS EDUCATION INSTRUCTOR, BMP, HSTROPN ####[facility] Gnrkomqggd[address] [place], [place] [address]Dr. Garima Pulliam Calcium [Mass/Vol] 8.8 mg/dL Normal 8.5-10.1 [facility] Comment on above: Performed By: #### B BUSINESS EDUCATION INSTRUCTOR, BMP, HSTROPN ####[facility] Pehzdqnwfx199[address] [place], [place] [address]Dr. Garima Pulliam Chloride [Moles/Vol] 106 mmol/L Normal 98-107 [facility] Comment on above: Performed By: #### B BUSINESS EDUCATION INSTRUCTOR, BMP, HSTROPN ####[facility] Ltbbifxqtq960[address] [place], [place] [address]Dr. Garima Pulliam CO2 [Moles/Vol] 31.4 mmol/L Normal 21.0-32.0 [facility] Comment on above: Performed By: #### B BUSINESS EDUCATION INSTRUCTOR, BMP, HSTROPN ####[facility] Aysqvpvvdr911[address] [place], [place] [address]Dr. Garima Pulliam Creatinine [Mass/Vol] 0.75 mg/dL Normal 0.70-1.30 [facility] Comment on above: Performed By: #### B BUSINESS EDUCATION INSTRUCTOR, BMP, HSTROPN ####[facility] Xowxmwiptf8[address] [place], [place] [address]Dr. Garima Pulliam EGFR-AF MONGOLIAN >60 Normal >=60 [facility] Comment on above: Performed By: #### B BUSINESS EDUCATION INSTRUCTOR, BMP, HSTROPN ####[facility] F[address]rndinr[address] [place] [address]Dr. Garima Pulliam EGFR-NON AF MONGOLIAN >60 Normal >=60 [facility] Comment on above: Performed By: #### B BUSINESS EDUCATION INSTRUCTOR, BMP, HSTROPN ####[facility] Dswwvjmxnv[address] [place] [address]Dr. Garima Pulliam Glucose [Mass/Vol] 161 mg/dL Critically high 74-106 [facility] Comment on above: Performed By: #### B BUSINESS EDUCATION INSTRUCTOR, BMP, HSTROPN ####[facility] Lkdeoslbom[address] [place] [address]Dr. Garima Pullaim Potassium [Moles/Vol] 4.1 mmol/L Normal 3.5-5.1 [facility] Comment on above: Performed By: #### B BUSINESS EDUCATION INSTRUCTOR, BMP, HSTROPN ####[facility] Jyvgcbhtbo[address] [place] [address]Dr. Garima Pulliam Sodium [Moles/Vol] 140 mmol/L Normal 136-[address] [facility] Comment on above: Performed By: #### B BUSINESS EDUCATION INSTRUCTOR, BMP, HSTROPN ####[facility] Ktdbasbbuc[address] [place] [address]Dr. Garima Pulliam Urea nitrogen [Mass/Vol] 7.0 mg/dL Normal 7.0-18.0 [facility] Comment on above: Performed By: #### B BUSINESS EDUCATION INSTRUCTOR, BMP, HSTROPN ####[facility] [address]xcfqtzape[address] [place] [address]Dr. Garima Pulliam Urea nitrogen/Creatinine [Mass ratio] 9.3 mg/mg Normal [facility] Comment on above: Performed By: #### B BUSINESS EDUCATION INSTRUCTOR, BMP, HSTROPN ####[facility] Seehyyzhfn[address] [place] [address]Dr. Garima Pulliam TROPONIN, HIGH SENSITIVITYon 03-16-2023 HSTROP 9.7 pg/mL Normal 4.0-76.1 [facility] Comment on above: Result Comment: CUT- OFF POINTS HAVE BEEN ESTABLISHED BASED ON THE FOURTH UNIVERSAL DEFINITIONS OF MYOCARDIALINFARCTION. THE UPPER REFERENCE LIMIT (URL) OF TROPONIN, DEFINED THE 99TH PERCENTILE OFcTnI DISTRIBUTION IN A REFERENCE POPULATION, HAS BEEN CONFIRMED THE DECISION THRESHOLDFOR [place] DIAGNOSIS. Performed By: #### B BUSINESS EDUCATION INSTRUCTOR, BMP, HSTROPN ####[facility] Usrsaesnyf[address] [place] [address]Dr. Garima Pulliam XR CHEST 1 Von 03-16-2023 XR CHEST 1 V Normal [facility] BNPon 03-06-2023 Natriuretic peptide B (Bld) [Mass/Vol] 111.0 pg/mL Normal <=900.0 [facility] Comment on above: Performed By: #### C MP, BNP, CK ####[facility] Zidttvtvqi165[address] [place], [place] [address]Dr. Garima Pulliam CBC AUTO DIFFon 03-06-2023 BASO # 0.0 103/ul Normal 0.0-0.1 [facility] Comment on above: Performed By: #### C BC ####[facility] Aqavkrtjze9[address] [place], [place] [address]Dr. Garima Pulliam Basophils/100 WBC (Bld) 0.2 % Normal 0.2-2.0 [facility] Comment on above: Performed By: #### C BC ####[facility] Fhpdyxurhj01[address] [place], [place] [address]Dr. Garima Pulliam EO # 0.3 103/ul Normal 0.0-0.7 [facility] Comment on above: Performed By: #### C BC ####[facility] Xusopmlvri327[address] [place], [place] [address]Dr. Garima Pulliam Eosinophils/100 WBC (Bld) 3.5 % Normal 0.9-7.0 [facility] Comment on above: Performed By: #### C BC ####[facility] Dsqfvrbmid18[address] [place], [place] [address]Dr. Garima Pulliam Erythrocyte distribution width (RBC) [Ratio] 13.3 % Normal 11.0-15.0 [facility] Comment on above: Performed By: #### C BC ####[facility] Fkgthdpywk[address] [place], [place] [address]Dr. Garima Pulliam Hematocrit (Bld) [Volume fraction] 43.7 % Normal 42.0-54.0 [facility] Comment on above: Performed By: #### C BC ####[facility] Vxggzxuvua4[address] [place] [address]DrAdalberto Pulliam Hemoglobin (Bld) [Mass/Vol] 14.7 g/dL Normal 14.0-18.0 [facility] Comment on above: Performed By: #### C BC ####[facility] De[address]xmsxga[address] [place] [address]Dr. Garima Pulliam IG # 0.03 10e3/ul Normal 0.00-0.03 [facility] Comment on above: Performed By: #### C BC ####[facility] Hoaphuhpww[address] [place], [place] [address]DrAdalberto Pulliam IG % 0.4 % Normal 0.0-0.5 [facility] Comment on above: Performed By: #### C BC ####[facility] Woornjfgoz177[address] [place], [place] [address]DrAdalberto Pulliam LYMPH # 2.0 103/ul Normal 1.2-3.8 [facility] Comment on above: Performed By: #### C BC ####[facility] Ifjeduwdrm186[address] [place], [place] [address]DrAdalberto Pulliam Lymphocytes/100 WBC (Bld) 23.7 % Normal 20.5-60.0 [facility] Comment on above: Performed By: #### C BC ####[facility] Pyjayiijpx[address] [place] [address]DrAdalberto Pulliam MANUAL DIFF REQ NO Normal [facility] Comment on above: Performed By: #### C BC ####[facility] Uuuufligus[address] [place] [phone] Pulliam MCH (RBC) [Entitic mass] 30.1 pg Normal 25.9-34.0 [facility] Comment on above: Performed By: #### C BC ####[facility] Lhftanmpop[address] [place] [phone] Pulliam MCHC (RBC) [Mass/Vol] 33.6 g/dL Normal 29.9-35.2 [facility] Comment on above: Performed By: #### C BC ####[facility] Hzwolqpoxw75[address] [place] [address]DrAdalberto Pulliam MCV (RBC) [Entitic vol] 89.4 fL Normal 80.0-94.0 [facility] Comment on above: Performed By: #### C BC ####[facility] Kbfgnfzndc9[address] [place] [address]DrAdalberto Pulliam MONO # 0.8 103/ul Normal 0.3-0.8 [facility] Comment on above: Performed By: #### C BC ####[facility] Keulxwjsmo183[address] [place], [place] [address]Dr. Garima Pulliam Monocytes/100 WBC (Bld) 9.0 % Normal 1.7-12.0 [facility] Comment on above: Performed By: #### C BC ####[facility] Tgwrjmfjii069[address] [place], [place] [address]Dr. Garima Pulliam NEUT # 5.4 103/ul Normal 1.4-6.5 [facility] Comment on above: Performed By: #### C BC ####[facility] Dqcwpsodib27[address] [place], [place] [address]Dr. Garima Pulliam Neutrophils/100 WBC (Bld) 63.2 % Normal 43.0-75.0 [facility] Comment on above: Performed By: #### C BC ####[facility] Olusxicbhm356[address] [place], [place] [address]DrAdalberto Pulliam Platelet mean volume (Bld) [Entitic vol] 9.0 fL Critically low 9.5-13.5 [facility] Comment on above: Performed By: #### C BC ####[facility] Zvujckbtuf27[address] [place], [place] [address]Dr. Garima Pulliam PLT 218 103/ul Normal 150-450 [facility] Comment on above: Performed By: #### C BC ####[facility] B[address]ywxbqtj67[address] [place] [phone]. Garima Pulliam RBC 4.89 106/ul Normal 4.70-6.10 [facility] Comment on above: Performed By: #### C BC ####[facility] Sm[address]wavvjjj[address] [place] [address]Dr. Garima Pulliam WBC 8.5 103/ul Normal 4.0-11.0 [facility] Comment on above: Performed By: #### C BC ####[facility] Emtoimfqyo[address] [place] [address]Dr. Garima Pulliam CPKon 03-06-2023 CK [Catalytic activity/Vol] 191 U/L Normal 39-308 [facility] Comment on above: Performed By: #### C MP, BNP, CK ####[facility] [address]whda[address] [place] [address]Dr. Garima Pulliam PROF 14(COMP METB)on 023 Albumin [Mass/Vol] 3.6 g/dL Normal 3.4-5.[address] [facility] Comment on above: Performed By: #### C MP, BNP, CK ####[facility] Jstszwbqbp2[address] [place] [address]Dr. Garima Pulliam Albumin/Globulin [Mass ratio] 1.2 {ratio} Normal [facility] Comment on above: Performed By: #### C MP, BNP, CK ####[facility] Zmgxcdxccn[address] [place] [address]Dr. Garima Pulliam ALP [Catalytic activity/Vol] 91 U/L Normal 46-116 [facility] Comment on above: Performed By: #### C MP, BNP, CK ####[facility] Iylmjhbgnc8[address] [place] [address]Dr. Garima Pulliam ALT [Catalytic activity/Vol] 33 U/L Normal 16-63 [facility] Comment on above: Performed By: #### C MP, BNP, CK ####[facility] Gpdrkgopwv90[address] [place] [address]Dr. Garima Pulliam Anion gap [Moles/Vol] 10.3 mmol/L Normal [facility] Comment on above: Performed By: #### C MP, BNP, CK ####[facility] Ltsybamfvj9[address] [place] [address]Dr. Garima Pulliam AST [Catalytic activity/Vol] 17 U/L Normal 15-37 [facility] Comment on above: Performed By: #### C MP, BNP, CK ####[facility] Wibzmortur[address] [place] [address]Dr. Garima Pulliam Bilirubin [Mass/Vol] 0.4 mg/dL Normal 0.2-1.0 [facility] Comment on above: Performed By: #### C MP, BNP, CK ####[facility] Ezldhgvoam84[address] [place], [place] [address]Dr. Garima Pulliam Calcium [Mass/Vol] 9.1 mg/dL Normal 8.5-10.1 [facility] Comment on above: Performed By: #### C MP, BNP, CK ####[facility] Hsvtzkrcbr84[address] [place], [place] [address]Dr. Garima Pulliam Chloride [Moles/Vol] 102 mmol/L Normal 98-107 [facility] Comment on above: Performed By: #### C MP, BNP, CK ####[facility] Bptelwageo24[address] [place], [place] [address]Dr. Garima Pulliam CO2 [Moles/Vol] 29.7 mmol/L Normal 21.0-32.0 [facility] Comment on above: Performed By: #### C MP, BNP, CK ####[facility] Haupkhefgw469[address] [place], [place] [address]Dr. Garima Pulliam Creatinine [Mass/Vol] 0.79 mg/dL Normal 0.70-1.30 [facility] Comment on above: Performed By: #### C MP, BNP, CK ####[facility] Twvtusxplm[address] [place], [place] [address]Dr. Garima Pulliam EGFR-AF MONGOLIAN >60 Normal >=60 [facility] Comment on above: Performed By: #### C MP, BNP, CK ####[facility] Adsyskwjkg378[address] [place], [place] [address]Dr. Garima Pulliam EGFR-NON AF MONGOLIAN >60 Normal >=60 [facility] Comment on above: Performed By: #### C MP, BNP, CK ####[facility] Aiktkaissg55[address] [place] [address]Dr. Garima Pulliam Globulin (S) [Mass/Vol] 3.0 g/dL Normal [facility] Comment on above: Performed By: #### C MP, BNP, CK ####[facility] Bumhuwbpns039[address] [place] [address]Dr. Garima Pulliam Glucose [Mass/Vol] 202 mg/dL Critically high 74-106 [facility] Comment on above: Performed By: #### C MP, BNP, CK ####[facility] Dcxqnaoscy8427 [place] [address]Dr. Garima Pulliam Potassium [Moles/Vol] 4.0 mmol/L Normal 3.5-5.1 [facility] Comment on above: Performed By: #### C MP, BNP, CK ####[facility] Lygurymver13[address] [place], [place] [address]Dr. Garima Pulliam Protein [Mass/Vol] 6.6 g/dL Normal 6.4-8.[address] [facility] Comment on above: Performed By: #### C MP, BNP, CK ####[facility] Hlzhrjhgzz493[address] [place], [place] [address]Dr. Garima Pulliam Sodium [Moles/Vol] 138 mmol/L Normal 136-[address] [facility] Comment on above: Performed By: #### C MP, BNP, CK ####[facility] Ggoandvium13[address] [place], [place] [address]Dr. Garima Pulliam Urea nitrogen [Mass/Vol] 10.0 mg/dL Normal 7.0-18.0 [facility] Comment on above: Performed By: #### C MP, BNP, CK ####[facility] Fsginopnjc24[address] [place] [address]Dr. Garima Pulliam Urea nitrogen/Creatinine [Mass ratio] 12.7 mg/mg Normal [facility] Comment on above: Performed By: #### C MP, BNP, CK ####[facility] Nzmxjsloee2[address] [place] [address]Dr. Garima Pulliam US VERONICA DOP LEG BILon 023 US VERONICA DOP LEG BENOIT Normal [facility] CBC AUTO DIFFon 01-13-2023 BASO # 0.0 103/ul Normal 0.0-0.1 [facility] Comment on above: Performed By: #### C BC ####[facility] Gcvzfuahqy42[address] [place] [id number]. Chapisrenu Pulliam Basophils/100 WBC (Bld) 0.0 % Critically low 0.2-2.0 [facility] Comment on above: Performed By: #### C BC ####[facility] Mmxayyixhe875[address] [place], [place] [address]Dr. Garima Pulliam EO # 0.0 103/ul Normal 0.0-0.7 [facility] Comment on above: Performed By: #### C BC ####[facility] Xmixppvoeo987[address] [place], [place] [address]Dr. Garima Pulliam Eosinophils/100 WBC (Bld) 0.0 % Critically low 0.9-7.0 [facility] Comment on above: Performed By: #### C BC ####[facility] Pkdfqfazmk8[address] [place], [place] [address]Dr. Garima Pulliam Erythrocyte distribution width (RBC) [Ratio] 13.2 % Normal 11.0-15.0 [facility] Comment on above: Performed By: #### C BC ####[facility] Tsbxjtrojp05[address] [place], [place] [address]Dr. Garima Pulliam Hematocrit (Bld) [Volume fraction] 46.7 % Normal 42.0-54.0 [facility] Comment on above: Performed By: #### C BC ####[facility] Uuayeogqhe7[address] [place], [place] [address]Dr. Garima Pulliam Hemoglobin (Bld) [Mass/Vol] 15.6 g/dL Normal 14.0-18.0 [facility] Comment on above: Performed By: #### C BC ####[facility] Yjskimfmbi[address] [place], [place] [address]Dr. Garima Pulliam IG # 0.01 10e3/ul Normal 0.00-0.03 [facility] Comment on above: Performed By: #### C BC ####[facility] Byfwtnzovm57[address] [place] [phone]. Garima Pulliam IG % 0.2 % Normal 0.0-0.5 [facility] Comment on above: Performed By: #### C BC ####[facility] Qrbdktwlsw0950 [place] [phone]. Garima Pulliam LYMPH # 0.8 103/ul Critically low 1.2-3.8 [facility] Comment on above: Performed By: #### C BC ####[facility] Tehjvrrzwx3831 [place] [phone]. Garima Pulliam Lymphocytes/100 WBC (Bld) 12.7 % Critically low 20.5-60.0 [facility] Comment on above: Performed By: #### C BC ####[facility] Vdihwvpgwo3196 [place] [phone]. Garima Pulliam MANUAL DIFF REQ NO Normal [facility] Comment on above: Performed By: #### C BC ####[facility] Bypobsqnkg2137 [place] [phone]. Garima Pulliam MCH (RBC) [Entitic mass] 30.2 pg Normal 25.9-34.0 [facility] Comment on above: Performed By: #### C BC ####[facility] Wmvyxylthb97[address] [place] [phone]. Garima Pulliam MCHC (RBC) [Mass/Vol] 33.4 g/dL Normal 29.9-35.2 [facility] Comment on above: Performed By: #### C BC ####[facility] Wpjgdgrnur4812 [place] [phone]. Garima Pulliam MCV (RBC) [Entitic vol] 90.3 fL Normal 80.0-94.0 [facility] Comment on above: Performed By: #### C BC ####[facility] Xmdqehtxjq5578 [place] [address]Dr. Garima Pulliam MONO # 0.1 103/ul Critically low 0.3-0.8 [facility] Comment on above: Performed By: #### C BC ####[facility] Wjycmebvxj3511 [place] [phone]. Garima Pulliam Monocytes/100 WBC (Bld) 0.9 % Critically low 1.7-12.0 [facility] Comment on above: Performed By: #### C BC ####[facility] Tvuxgdmoqm9213 [place] [phone]. Garima Pulliam NEUT # 5.6 103/ul Normal 1.4-6.5 [facility] Comment on above: Performed By: #### C BC ####[facility] Lgyvydurua5[address] [place] [address]Dr. Garima Pulliam Neutrophils/100 WBC (Bld) 86.2 % Critically high 43.0-75.0 [facility] Comment on above: Performed By: #### C BC ####[facility] Sjpdbvtamm2901 [place] [address]Dr. Garima Pulliam Platelet mean volume (Bld) [Entitic vol] 9.1 fL Critically low 9.5-13.5 [facility] Comment on above: Performed By: #### C BC ####[facility] Jwdrupdkoe7[address] [place], [place] [address]Dr. Garima Pulliam PLT 169 103/ul Normal 150-450 [facility] Comment on above: Performed By: #### C BC ####[facility] Pigfvuwtsp5[address] [place], [place] [address]Dr. Garima Pulliam RBC 5.17 106/ul Normal 4.70-6.10 [facility] Comment on above: Performed By: #### C BC ####[facility] Drwvnbagkj[address] [place], [place] [address]Dr. Garima Pulliam WBC 6.5 103/ul Normal 4.0-11.0 [facility] Comment on above: Performed By: #### C BC ####[facility] Qbmfcisjll875[address] [place], [place] [address]Dr. Garima Pulliam D-DIMERon 01-13-2023 D-DIMER 0.41 mg/L FEU Normal <=0.59 [facility] Comment on above: Performed By: #### D DIM ####[facility] Afeezsmubg70[address] [place], [place] [address]Dr. Garima Pulliam D-DIMER COMMENTS SEE BELOW Normal [facility] Comment on above: Result Comment: [...] generalized hospitalization. Performed By: #### D DIM ####[facility] Jlfoztpyyv6[address] [place], [place] [address]Dr. Garima Pulliam PROF 14(COMP METB)on 023 Albumin [Mass/Vol] 3.4 g/dL Normal 3.4-5.[address] [facility] Comment on above: Performed By: #### C MP ####[facility] Brkbutzgyc5[address] [place], [place] [address]Dr. Garima Pulliam Albumin/Globulin [Mass ratio] 1.3 {ratio} Normal [facility] Comment on above: Performed By: #### C MP ####[facility] Sjbdhurhcz[address] [place], [place] [address]Dr. Garima Pulliam ALP [Catalytic activity/Vol] 83 U/L Normal 46-116 [facility] Comment on above: Performed By: #### C MP ####[facility] Ilcsfcjozh11[address] [place], [place] [address]Dr. Garima Pulliam ALT [Catalytic activity/Vol] 25 U/L Normal 16-63 [facility] Comment on above: Performed By: #### C MP ####[facility] Ivzxbvtict89[address] [place], [place] [address]Dr. Garima Pulliam Anion gap [Moles/Vol] 14.5 mmol/L Normal [facility] Comment on above: Performed By: #### C MP ####[facility] Cscfcdqgxr289[address] [place], [place] [address]Dr. Garima Pulliam AST [Catalytic activity/Vol] 19 U/L Normal 15-37 [facility] Comment on above: Performed By: #### C MP ####[facility] Neipdzyuwu96[address] [place], [place] [address]Dr. Garima Pulliam Bilirubin [Mass/Vol] 0.4 mg/dL Normal 0.2-1.0 [facility] Comment on above: Performed By: #### C MP ####[facility] Sdaolujqit[address] [place], [place] [address]Dr. Garima Pulliam Calcium [Mass/Vol] 8.7 mg/dL Normal 8.5-10.[address] [facility] Comment on above: Performed By: #### C MP ####[facility] Pcefpvrrwn[address] [place], [place] [address]Dr. Garima Pulliam Chloride [Moles/Vol] 104 mmol/L Normal 98-107 [facility] Comment on above: Performed By: #### C MP ####[facility] Hwxtbewmto[address] [place], [place] [address]Dr. Garima Pulliam CO2 [Moles/Vol] 24.5 mmol/L Normal 21.0-32.0 [facility] Comment on above: Performed By: #### C MP ####[facility] Puophehogk[address] [place], [place] [address]Dr. Garima Pulliam Creatinine [Mass/Vol] 0.70 mg/dL Normal 0.70-1.30 [facility] Comment on above: Performed By: #### C MP ####[facility] Syhskuywpw[address] [place], [place] [address]Dr. Garima eHraclio EGFR-AF MONGOLIAN >60 Normal >=60 [facility] Comment on above: Performed By: #### C MP ####[facility] Ssoezdknio96[address] [place], [place] [address]Dr. Garima Heraclio EGFR-NON AF MONGOLIAN >60 Normal >=60 [facility] Comment on above: Performed By: #### C MP ####[facility] Jginzcxkku[address] [place], [place] [address]Dr. Garima Heraclio Globulin (S) [Mass/Vol] 2.6 g/dL Normal [facility] Comment on above: Performed By: #### C MP ####[facility] Srnnzjwmfb[address] [place] [address]Dr. Garima Pulliam Glucose [Mass/Vol] 196 mg/dL Critically high 74-106 [facility] Comment on above: Performed By: #### C MP ####[facility] [address]ucv[address] [place] [address]Dr. Garima Pulliam Potassium [Moles/Vol] 4.0 mmol/L Normal 3.5-5.1 [facility] Comment on above: Performed By: #### C MP ####[facility] Qax[address]hisqzx[address] [place] [address]Dr. Garima Pulliam Protein [Mass/Vol] 6.0 g/dL Critically low 6.4-8.2 [facility] Comment on above: Performed By: #### C MP ####[facility] [address]ew[address] [place], [place] [address]Dr. Garima Pulliam Sodium [Moles/Vol] 139 mmol/L Normal 136-[address] [facility] Comment on above: Performed By: #### C MP ####[facility] Iwxowgflpx[address] [place], [place] [address]Dr. Garima Pulliam Urea nitrogen [Mass/Vol] 7.0 mg/dL Normal 7.0-18.0 [facility] Comment on above: Performed By: #### C MP ####[facility] Jlfrfvhrry[address] [place], [place] [address]Dr. Garima Heraclio Urea nitrogen/Creatinine [Mass ratio] 10.0 mg/mg Normal [facility] Comment on above: Performed By: #### C MP ####[facility] Yhefyccmwn[address] [place], [place] [address]Dr. Chapisrenu Pulliam BNPon 01-12-2023 Natriuretic peptide B (Bld) [Mass/Vol] 141.0 pg/mL Normal <=900.0 [facility] Comment on above: Performed By: #### C MP, BNP, HSTROPN ####[facility] [address]fovxhdl[address] [place], [place] [address]Dr. Garima Heraclio CBC AUTO DIFFon 01-12-2023 BASO # 0.0 103/ul Normal 0.0-0.1 [facility] Comment on above: Performed By: #### C BC ####[facility] [address] [place] [address]Dr. Garima Heraclio Basophils/100 WBC (Bld) 0.2 % Normal 0.2-2.0 [facility] Comment on above: Performed By: #### C BC ####[facility] Zbbwvuhowq[address] [place] [address]Dr. Garima Heraclio EO # 0.2 103/ul Normal 0.0-0.7 [facility] Comment on above: Performed By: #### C BC ####[facility] Qtsalfazoq039[address] [place] [address]Dr. Garima Heraclio Eosinophils/100 WBC (Bld) 2.7 % Normal 0.9-7.0 [facility] Comment on above: Performed By: #### C BC ####[facility] Iaxievttfn[address] [place], [place] [address]Dr. Garima Pulliam Erythrocyte distribution width (RBC) [Ratio] 13.3 % Normal 11.0-15.0 [facility] Comment on above: Performed By: #### C BC ####[facility] Zwwnachozt[address] [place], [place] [address]Dr. Garima Pulliam Hematocrit (Bld) [Volume fraction] 42.3 % Normal 42.0-54.0 [facility] Comment on above: Performed By: #### C BC ####[facility] Tkchtjpnef[address] [place], [place] [address]Dr. Garima Pulliam Hemoglobin (Bld) [Mass/Vol] 14.3 g/dL Normal 14.0-18.0 [facility] Comment on above: Performed By: #### C BC ####[facility] Gszzghoqfu[address] [place], [place] [address]Dr. Garima Pulliam IG # 0.02 10e3/ul Normal 0.00-0.03 [facility] Comment on above: Performed By: #### C BC ####[facility] [address]uppw[address] [place] [id number]. Garima Pulliam IG % 0.2 % Normal 0.0-0.5 [facility] Comment on above: Performed By: #### C BC ####[facility] Kavvbhieqq[address] [place] [address]Dr. Garima Pulliam LYMPH # 2.6 103/ul Normal 1.2-3.8 [facility] Comment on above: Performed By: #### C BC ####[facility] Tcorhefsda[address] [place] [phone]. Garima Heraclio Lymphocytes/100 WBC (Bld) 29.6 % Normal 20.5-60.0 [facility] Comment on above: Performed By: #### C BC ####[facility] C[address]whkiop[address] [place] [address]Dr. Garima Heraclio MANUAL DIFF REQ NO Normal [facility] Comment on above: Performed By: #### C BC ####[facility] Hkkcizwurg[address] [place] [phone]. Garima Pulliam MCH (RBC) [Entitic mass] 30.2 pg Normal 25.9-34.0 [facility] Comment on above: Performed By: #### C BC ####[facility] Taqyxqkbzr8[address] [place] [address]Dr. Garima Pulliam MCHC (RBC) [Mass/Vol] 33.8 g/dL Normal 29.9-35.2 [facility] Comment on above: Performed By: #### C BC ####[facility] Bobuaonvzn65[address] [place] [phone]. Garima Pulliam MCV (RBC) [Entitic vol] 89.2 fL Normal 80.0-94.0 [facility] Comment on above: Performed By: #### C BC ####[facility] Lqcymwnmgh[address] [place], [place] [address]Dr. Garima Heraclio MONO # 0.7 103/ul Normal 0.3-0.8 [facility] Comment on above: Performed By: #### C BC ####[facility] M[address]qvztjcp69[address] [place] [phone]. Garima Pulliam Monocytes/100 WBC (Bld) 8.3 % Normal 1.7-12.0 [facility] Comment on above: Performed By: #### C BC ####[facility] Nbsrogbajy17[address] [place] [phone]. Garima Pulliam NEUT # 5.1 103/ul Normal 1.4-6.5 [facility] Comment on above: Performed By: #### C BC ####[facility] Prvzyaiser34[address] [place] [address]Dr. Garima Pulliam Neutrophils/100 WBC (Bld) 59.0 % Normal 43.0-75.0 [facility] Comment on above: Performed By: #### C BC ####[facility] Svizsticdy[address] [place] [address]Dr. Garima Pulliam Platelet mean volume (Bld) [Entitic vol] 8.7 fL Critically low 9.5-13.5 [facility] Comment on above: Performed By: #### C BC ####[facility] Jrpkysfjpp8[address] [place] [phone]. Garima Pulliam PLT 182 103/ul Normal 150-450 [facility] Comment on above: Performed By: #### C BC ####[facility] Snnaskhtxy[address] [place] [phone]. Garima Pulliam RBC 4.74 106/ul Normal 4.70-6.10 [facility] Comment on above: Performed By: #### C BC ####[facility] Ynwzamumfv68[address] [place] [phone]. Garima Pulliam WBC 8.7 103/ul Normal 4.0-11.0 [facility] Comment on above: Performed By: #### C BC ####[facility] Midnfrnhwc[address] [place], [place] [address]Dr. Garima Pulliam Covid-19 PCR (CVDTB)on 12-25 SARS-CoV-2 (COVID-19) RNA MARIE+probe Ql (Unsp spec) Not detected Normal NOT DETECTED [facility] Comment on above: Result Comment: When [...] for this test is supported by the Pharmacy Technician Program Director of Health and Human Service's declaration [...] be used). Performed By: #### C VDTBH ####[facility] [address]isvg[address] [place] [address]Dr. Garima Pulliam PROF 14(COMP METB)on 023 Albumin [Mass/Vol] 3.6 g/dL Normal 3.4-5.[address] [facility] Comment on above: Performed By: #### C MP, BNP, HSTROPN ####[facility] Mkfvedzoib[address] [place] [address]Dr. Garima Pulliam Albumin/Globulin [Mass ratio] 1.5 {ratio} Normal [facility] Comment on above: Performed By: #### C MP, BNP, HSTROPN ####[facility] Adpxbnnubw8134 [place] [address]Dr. Garima Pulliam ALP [Catalytic activity/Vol] 79 U/L Normal 46-116 [facility] Comment on above: Performed By: #### C MP, BNP, HSTROPN ####[facility] Qvyckktphl0209 [place] [address]Dr. Garima Pulliam ALT [Catalytic activity/Vol] 27 U/L Normal 16-63 [facility] Comment on above: Performed By: #### C MP, BNP, HSTROPN ####[facility] Hnxgcbwqfo3[address] [place] [address]Dr. Garima Pulliam Anion gap [Moles/Vol] 11.7 mmol/L Normal Th e [facility] Comment on above: Performed By: #### C MP, BNP, HSTROPN ####[facility] Uuxijglsdy3[address] [place] [address]Dr. Garima Pulliam AST [Catalytic activity/Vol] 21 U/L Normal 15-37 [facility] Comment on above: Performed By: #### C MP, BNP, HSTROPN ####[facility] Cidagrytkr[address] [place], [place] [address]Dr. Garima Pulliam Bilirubin [Mass/Vol] 0.3 mg/dL Normal 0.2-1.0 [facility] Comment on above: Performed By: #### C MP, BNP, HSTROPN ####[facility] Nrtpnugohn32[address] [place], [place] [address]Dr. Garima Pulliam Calcium [Mass/Vol] 8.9 mg/dL Normal 8.5-10.[address] [facility] Comment on above: Performed By: #### C MP, BNP, HSTROPN ####[facility] Hgtrmtrwef3[address] [place], [place] [address]Dr. Garima Pulliam Chloride [Moles/Vol] 107 mmol/L Normal 98-107 [facility] Comment on above: Performed By: #### C MP, BNP, HSTROPN ####[facility] Bzfzzvcvur[address] [place], [place] [address]Dr. Garima Pulliam CO2 [Moles/Vol] 26.0 mmol/L Normal 21.0-32.0 [facility] Comment on above: Performed By: #### C MP, BNP, HSTROPN ####[facility] Zatmbrgzzg[address] [place], [place] [address]Dr. Garima Pulliam Creatinine [Mass/Vol] 0.65 mg/dL Critically low 0.70-1.30 [facility] Comment on above: Performed By: #### C MP, BNP, HSTROPN ####[facility] Oxwjspcway36[address] [place], [place] [address]Dr. Garima Pulliam EGFR-AF MONGOLIAN >60 Normal >=60 [facility] Comment on above: Performed By: #### C MP, BNP, HSTROPN ####[facility] Mclwccjlyx68[address] [place] [address]Dr. Garima Pulliam EGFR-NON AF MONGOLIAN >60 Normal >=60 [facility] Comment on above: Performed By: #### C MP, BNP, HSTROPN ####[facility] Virpludmxk4566 [place] [address]Dr. Garima Pulliam Globulin (S) [Mass/Vol] 2.4 g/dL Normal [facility] Comment on above: Performed By: #### C MP, BNP, HSTROPN ####[facility] Odkylbnapf[address] [place], [place] [address]Dr. Garima Pulliam Glucose [Mass/Vol] 85 mg/dL Normal 74-[address] [facility] Comment on above: Performed By: #### C MP, BNP, HSTROPN ####[facility] Pweoljdfnb135[address] [place], [place] [address]Dr. Garima Pulliam Potassium [Moles/Vol] 3.7 mmol/L Normal 3.5-5.1 [facility] Comment on above: Performed By: #### C MP, BNP, HSTROPN ####[facility] Erbbulkatj[address] [place] [address]Dr. Garima Pulliam Protein [Mass/Vol] 6.0 g/dL Critically low 6.4-8.2 [facility] Comment on above: Performed By: #### C MP, BNP, HSTROPN ####[facility] Lrhtyctlwy09[address] [place], [place] [address]Dr. Garima Pulliam Sodium [Moles/Vol] 141 mmol/L Normal 136-145 [facility] Comment on above: Performed By: #### C MP, BNP, HSTROPN ####[facility] Sqtvglktko9040 [place] [address]Dr. Garima Pulliam Urea nitrogen [Mass/Vol] 5.0 mg/dL Critically low 7.0-18.0 [facility] Comment on above: Performed By: #### C MP, BNP, HSTROPN ####[facility] Vqzsesgabh50[address] [place] [address]Dr. Garima Pulliam Urea nitrogen/Creatinine [Mass ratio] 7.7 mg/mg Normal [facility] Comment on above: Performed By: #### C MP, BNP, HSTROPN ####[facility] Vzftxmubnx6[address] [place] [address]Dr. Garima Pulliam PROTIMEon 01-12-2023 INR Coag (PPP) [Relative time] 1.16 {INR} Normal [facility] Comment on above: Performed By: #### P TT, PT ####[facility] Oxarvdhbfh[address] [place], [place] [address]Dr. Garima Pulliam INR GUIDELINES SEE BELOW Normal [facility] Comment on above: Result Comment: WESLEY RED INR: 2.0 - 3.0 CONDITIONS NOT LISTED BELOW 2.5 - 3.5 FOR PROSTHETIC HEART VALVE REPLACEMENT 2.5 - 3.5 RECURRENT THROMBOSIS Performed By: #### P TT, PT ####[facility] Jglbwbsfyu[address] [place], [place] [address]Dr. Garima Pulliam PT Coag (PPP) [Time] 12.2 s Critically high 9.0-11.6 [facility] Comment on above: Performed By: #### P TT, PT ####[facility] Nsxhytipcx[address] [place], [place] [address]Dr. Garima Pulliam PTTon 01-12-2023 aPTT Coag (Bld) [Time] 29.1 s Normal 22.3-36.2 [facility] Comment on above: Performed By: #### P TT, PT ####[facility] Bzctcoxtze[address] [place], [place] [address]Dr. Garima Pulliam TROPONIN, HIGH SENSITIVITYon 01-12-2023 HSTROP 10.3 pg/mL Normal 4.0-76.1 [facility] Comment on above: Result Comment: CUT- OFF POINTS HAVE BEEN ESTABLISHED BASED ON THE FOURTH UNIVERSAL DEFINITIONS OF MYOCARDIALINFARCTION. THE UPPER REFERENCE LIMIT (URL) OF TROPONIN, DEFINED THE 99TH PERCENTILE OFcTnI DISTRIBUTION IN A REFERENCE POPULATION, HAS BEEN CONFIRMED THE DECISION THRESHOLDFOR [place] DIAGNOSIS. Performed By: #### H STROPN ####[facility] [address]ybffcz[address] [place] [address]Dr. Garima Pulliam HSTROP 9.2 pg/mL Normal 4.0-76.1 [facility] Comment on above: Result Comment: CUT- OFF POINTS HAVE BEEN ESTABLISHED BASED ON THE FOURTH UNIVERSAL DEFINITIONS OF MYOCARDIALINFARCTION. THE UPPER REFERENCE LIMIT (URL) OF TROPONIN, DEFINED THE 99TH PERCENTILE OFcTnI DISTRIBUTION IN A REFERENCE POPULATION, HAS BEEN CONFIRMED THE DECISION THRESHOLDFOR [place] DIAGNOSIS. Performed By: #### C MP, BNP, HSTROPN ####[facility] Orchrfnbka[address] [place] [address]Dr. Garima Pulliam XR CHEST 1 Von 01-12-2023 XR CHEST 1 V Normal [facility] XR CHEST 1 Von 01-01-2023 XR CHEST 1 V Normal [facility] CARDIAC NASH 3-6on 3 CK [Catalytic activity/Vol] 196 U/L Normal 39-308 [facility] Comment on above: Performed By: #### C MREP ####[facility] Iulmotmscg3[address] [place] [address]Dr. Garima Pulliam CK.MB [Mass/Vol] 7.41 ng/mL Critically high <=3.60 [facility] Comment on above: Performed By: #### C MREP ####[facility] Buqqcyfeiu[address] [place] [address]Dr. Garima Pulliam HSTROP 10.3 pg/mL Normal 4.0-76.1 [facility] Comment on above: Result Comment: CUT- OFF POINTS HAVE BEEN ESTABLISHED BASED ON THE FOURTH UNIVERSAL DEFINITIONS OF MYOCARDIALINFARCTION. THE UPPER REFERENCE LIMIT (URL) OF TROPONIN, DEFINED THE 99TH PERCENTILE OFcTnI DISTRIBUTION IN A REFERENCE POPULATION, HAS BEEN CONFIRMED THE DECISION THRESHOLDFOR [place] DIAGNOSIS. Performed By: #### C MREP ####[facility] [address]qthztxqw[address] [place] [id number]. Garima Pulliam XR CHEST 1 Von 12-26-2022 XR CHEST 1 V Normal [facility] BNPon 12-25-2022 Natriuretic peptide B (Bld) [Mass/Vol] 98.0 pg/mL Normal <=900.0 [facility] Comment on above: Performed By: #### B MARVIN FRENCH CMADM ####[facility] Kw[address]uxrgzx[address] [place] [address]Dr. Garima Pulliam CARDIAC NASH ADMITon 023 CK [Catalytic activity/Vol] 208 U/L Normal 39-308 [facility] Comment on above: Performed By: #### B MARVIN FRENCH CMADM ####[facility] Qfewdznrqh9381 [place] [address]Dr. Garima Pulliam CK.MB [Mass/Vol] 7.63 ng/mL Critically high <=3.60 [facility] Comment on above: Performed By: #### B MARVIN FRENCH CMADM ####[facility] Jokgiystpg316[address] [place], [place] [address]Dr. Garima Pulliam HSTROP 8.8 pg/mL Normal 4.0-76.1 [facility] Comment on above: Result Comment: CUT- OFF POINTS HAVE BEEN ESTABLISHED BASED ON THE FOURTH UNIVERSAL DEFINITIONS OF MYOCARDIALINFARCTION. THE UPPER REFERENCE LIMIT (URL) OF TROPONIN, DEFINED THE 99TH PERCENTILE OFcTnI DISTRIBUTION IN A REFERENCE POPULATION, HAS BEEN CONFIRMED THE DECISION THRESHOLDFOR [place] DIAGNOSIS. Performed By: #### B MARVIN FRENCH CMADM ####[facility] Nexebhouzz74[address] [place], [place] [address]Dr. Garima Pulliam DORIS 83 ng/mL Normal 16-96 [facility] Comment on above: Performed By: #### B MARVIN FRENCH CMADM ####[facility] Bfxkghhqgg224[address] [place], [place] [address]Dr. Garima Pulliam CBC AUTO DIFFon 12-25-2022 BASO # 0.0 103/ul Normal 0.0-0.1 [facility] Comment on above: Performed By: #### C BC ####[facility] Ofqihvswde65[address] [place], [place] [address]Dr. Garima Pulliam Basophils/100 WBC (Bld) 0.0 % Critically low 0.2-2.0 [facility] Comment on above: Performed By: #### C BC ####[facility] Kmhpenqrxp5[address] [place] [address]Dr. Garima Pulliam EO # 0.0 103/ul Normal 0.0-0.7 [facility] Comment on above: Performed By: #### C BC ####[facility] Hpiyjuvypp[address] [place], [place] [address]Dr. Garima Pulliam Eosinophils/100 WBC (Bld) 0.7 % Critically low 0.9-7.0 [facility] Comment on above: Performed By: #### C BC ####[facility] Ugenewgoem20[address] [place], [place] [address]Dr. Garima Pulliam Erythrocyte distribution width (RBC) [Ratio] 13.4 % Normal 11.0-15.0 [facility] Comment on above: Performed By: #### C BC ####[facility] Qsthczbaom13[address] [place], [place] [address]Dr. Garima Pulliam Hematocrit (Bld) [Volume fraction] 42.9 % Normal 42.0-54.0 [facility] Comment on above: Performed By: #### C BC ####[facility] Wosnmeqmpu[address] [place], [place] [address]Dr. Garima Pulliam Hemoglobin (Bld) [Mass/Vol] 14.4 g/dL Normal 14.0-18.0 [facility] Comment on above: Performed By: #### C BC ####[facility] Isgjexlhah25[address] [place], [place] [address]Dr. Garima Pulliam IG # 0.00 10e3/ul Normal 0.00-0.03 [facility] Comment on above: Performed By: #### C BC ####[facility] Bglgfmxvop[address] [place], [place] [address]Dr. Garima Pulliam IG % 0.0 % Normal 0.0-0.5 [facility] Comment on above: Performed By: #### C BC ####[facility] Qiuggbtryw60[address] [place], [place] [address]Dr. Chapisrenu Pulliam LYMPH # 2.4 103/ul Normal 1.2-3.8 [facility] Comment on above: Performed By: #### C BC ####[facility] Iaibempsiv6321 [place] [id number]. Garima Pulliam Lymphocytes/100 WBC (Bld) 29.2 % Normal 20.5-60.0 [facility] Comment on above: Performed By: #### C BC ####[facility] Olavbosmiq6497 [place] [phone]. Garima Pulliam MANUAL DIFF REQ NO Normal [facility] Comment on above: Performed By: #### C BC ####[facility] Mvkbdasegl3788 [place] [phone]. Garima Pulliam MCH (RBC) [Entitic mass] 30.7 pg Normal 25.9-34.0 [facility] Comment on above: Performed By: #### C BC ####[facility] Dgnyloufii[address] [place], [place] [address]Dr. Garima Pulliam MCHC (RBC) [Mass/Vol] 33.6 g/dL Normal 29.9-35.2 [facility] Comment on above: Performed By: #### C BC ####[facility] Ozv[address]lszji[address] [place], [place] [address]Dr. Garima Pulliam MCV (RBC) [Entitic vol] 91.5 fL Normal 80.0-94.0 [facility] Comment on above: Performed By: #### C BC ####[facility] Gpjrjqmxyh[address] [place], [place] [address]Dr. Garima Pulliam MONO # 0.0 103/ul Critically low 0.3-0.8 [facility] Comment on above: Performed By: #### C BC ####[facility] Eckpvhrqlr022[address] [place] [address]Dr. Garima Pulliam Monocytes/100 WBC (Bld) 8.0 % Normal 1.7-12.0 [facility] Comment on above: Performed By: #### C BC ####[facility] Nvgnbjkpqp[address] [place], [place] [address]Dr. Garima Pulliam NEUT # 5.1 103/ul Normal 1.4-6.5 [facility] Comment on above: Performed By: #### C BC ####[facility] Jrigrrlscq032[address] [place], [place] [address]Hi. Garima Pulliam Neutrophils/100 WBC (Bld) 62.8 % Normal 43.0-75.0 [facility] Comment on above: Performed By: #### C BC ####[facility] Wsyovvtlvy8082 [place], [place] [address]Dt. Garima Pulliam Platelet mean volume (Bld) [Entitic vol] 8.6 fL Critically low 9.5-13.5 [facility] Comment on above: Performed By: #### C BC ####[facility] Zobrddpqtt7443 [place] [phone]. Garima Pulliam PLT 200 103/ul Normal 150-450 [facility] Comment on above: Performed By: #### C BC ####[facility] Nvogvohfvb6739 [place] [address]Dr. Garima Pulliam RBC 4.69 106/ul Critically low 4.70-6.10 [facility] Comment on above: Performed By: #### C BC ####[facility] Bdtajqfqbk1377 [place], [place] [address]Ck. Garima Pulliam WBC 8.2 103/ul Normal 4.0-11.0 [facility] Comment on above: Performed By: #### C BC ####[facility] Eitvnxoahk8379 [place], [place] [address]Oo. Garima Pulliam [facility]on SARS-CoV-2 (COVID-19) RNA MARIE+probe Ql (Unsp spec) Not detected Normal NOT DETECTED [facility] Comment on above: Result Comment: When [...] for this test is supported by the Pharmacy Technician Program Director of Health and Human Service's declaration [...] be used). Performed By: #### C VDTBH ####[facility] [address] [place] [address]. Garima Pulliam INFLUENZA A AND B AGon 12-25 INFLUANEGH SEE BELOW Normal [facility] Comment on above: Result Comment: Nega tive for Flu A protein angiten. Infection due to Flu A cannot be ruled out. Flu A angiten in the sample may be below the detection limit of the test. Performed By: #### I NFLUAB ####[facility] [address] [place] [address]. Garima Pulliam INFLUBNEGH SEE BELOW Normal [facility] Comment on above: Result Comment: Nega tive for Flu B protein antigen. Infection due to Flu B cannot be ruled out. Flu B antigen in the sample may be below the detection limit of the test. Performed By: #### I NFLUAB ####[facility] R[address]qqpzxc[address] [place], [place] [address]Dr. renu [facility] INFLUENZA A AG Negative Normal NEGATIVE SEE COMMENT [facility] Comment on above: Performed By: #### I NFLUAB ####[facility] Y[address]ztmbaxjz[address] [place], [place] [address]Dr. renu [facility] INFLUENZA B AG Negative Normal NEGATIVE SEE COMMENT [facility] Comment on above: Performed By: #### I NFLUAB ####[facility] [address] [place] [address]. renu Pulliam PROF CHEM 8 (BAS METB)on Anion gap [Moles/Vol] 11.1 mmol/L Normal [facility] Comment on above: Performed By: #### B BUSINESS EDUCATION INSTRUCTOR, BMP, CMADM ####[facility] Hopgfvfine[address] [place], [place] [address]Dr. Garima Pulliam Calcium [Mass/Vol] 8.5 mg/dL Normal 8.5-10.1 [facility] Comment on above: Performed By: #### B BUSINESS EDUCATION INSTRUCTOR, MARVIN, CMADM ####[facility] [address]rrtbrz[address] [place] [address]Dr. Garima Pulliam Chloride [Moles/Vol] 106 mmol/L Normal 98-107 [facility] Comment on above: Performed By: #### B BUSINESS EDUCATION INSTRUCTOR, MARVIN, CMADM ####[facility] Japzscoajm[address] [place] [address]Dr. Garima Pulliam CO2 [Moles/Vol] 27.4 mmol/L Normal 21.0-32.0 [facility] Comment on above: Performed By: #### B BUSINESS EDUCATION INSTRUCTOR, MARVIN, CMADM ####[facility] Akbtniybdj35[address] [place] [address]Dr. Garima Pulliam Creatinine [Mass/Vol] 0.65 mg/dL Critically low 0.70-1.30 [facility] Comment on above: Performed By: #### B BUSINESS EDUCATION INSTRUCTOR, MARVIN, CMADM ####[facility] Uelyxqqqgr[address] [place] [address]Dr. Garima Pulliam EGFR-AF MONGOLIAN >60 Normal >=60 [facility] Comment on above: Performed By: #### B BUSINESS EDUCATION INSTRUCTOR, BMP, CMADM ####[facility] [address]abhlqnoel[address] [place] [address]Dr. Garima Pulliam EGFR-NON AF MONGOLIAN >60 Normal >=60 [facility] Comment on above: Performed By: #### B BUSINESS EDUCATION INSTRUCTOR, BMP, CMADM ####[facility] Dxbsykplrd9054 [place] [address]Dr. Garima Pulliam Glucose [Mass/Vol] 140 mg/dL Critically high 74-106 [facility] Comment on above: Performed By: #### B BUSINESS EDUCATION INSTRUCTOR, BMP, CMADM ####[facility] Iumzdoznfh[address]852 [place] [address]Dr. Garima Pulliam Potassium [Moles/Vol] 3.5 mmol/L Normal 3.5-5.1 [facility] Comment on above: Performed By: #### B BUSINESS EDUCATION INSTRUCTOR, BMP, CMADM ####[facility] [address]jodisjkt[address] [place] [address]Dr. Garima Pulliam Sodium [Moles/Vol] 141 mmol/L Normal 136-[address] [facility] Comment on above: Performed By: #### B BUSINESS EDUCATION INSTRUCTOR, BMP, CMADM ####[facility] [facility] [address] [place] [address]Dr. Garima Pulliam Urea nitrogen [Mass/Vol] 8.0 mg/dL Normal 7.0-18.0 [facility] Comment on above: Performed By: #### B BUSINESS EDUCATION INSTRUCTOR, BMP, CMADM ####[facility] Nwkxwlwzec[address] [place] [address]Dr. Garima Pulliam Urea nitrogen/Creatinine [Mass ratio] 12.3 mg/mg Normal [facility] Comment on above: Performed By: #### B BUSINESS EDUCATION INSTRUCTOR, BMP, CMADM ####[facility] To[address]wwgufw[address] [place], [place] [address]Dr. Garima Pulliam CARDIAC NASH ADMITon 023 CK [Catalytic activity/Vol] 165 U/L Normal 39-308 [facility] Comment on above: Performed By: #### B DAVID, CMADM ####[facility] Xqxeotztsy[address] [place], [place] [address]Dr. Garima Pulliam CK.MB [Mass/Vol] 6.48 ng/mL Critically high <=3.60 [facility] Comment on above: Performed By: #### B MP, CMADM ####[facility] Qsqznrawne4[address] [place], [place] [address]Dr. Garima Pulliam HSTROP 11.7 pg/mL Normal 4.0-76.1 [facility] Comment on above: Result Comment: CUT- OFF POINTS HAVE BEEN ESTABLISHED BASED ON THE FOURTH UNIVERSAL DEFINITIONS OF MYOCARDIALINFARCTION. THE UPPER REFERENCE LIMIT (URL) OF TROPONIN, DEFINED THE 99TH PERCENTILE OFcTnI DISTRIBUTION IN A REFERENCE POPULATION, HAS BEEN CONFIRMED THE DECISION THRESHOLDFOR [place] DIAGNOSIS. Performed By: #### B MP, CMADM ####[facility] [address]wppvrmc[address] [place], [place] [address]Dr. Garima Pulliam DORIS 83 ng/mL Normal 16-96 [facility] Comment on above: Performed By: #### B MP, CMADM ####[facility] Tylezknuks[address] [place] [address]Dr. Garima Pulliam CBC AUTO DIFFon 12-10-2022 BASO # 0.0 103/ul Normal 0.0-0.1 [facility] Comment on above: Performed By: #### C BC ####[facility] Cwso[address] [place], [place] [address]Dr. Garima Pulliam Basophils/100 WBC (Bld) 0.3 % Normal 0.2-2.0 [facility] Comment on above: Performed By: #### C BC ####[facility] Sygkobmthi[address] [place], [place] [address]Dr. Garima Pulliam EO # 0.1 103/ul Normal 0.0-0.7 [facility] Comment on above: Performed By: #### C BC ####[facility] Qbkrxywjcy[address] [place], [place] [address]Dr. Garima Pulliam Eosinophils/100 WBC (Bld) 0.4 % Critically low 0.9-7.0 [facility] Comment on above: Performed By: #### C BC ####[facility] Gqoualrvwv[address] [place], [place] [address]Dr. Garima Pulliam Erythrocyte distribution width (RBC) [Ratio] 13.2 % Normal 11.0-15.0 [facility] Comment on above: Performed By: #### C BC ####[facility] Novevccinh[address] [place], [place] [address]Dr. Garima Pulliam Hematocrit (Bld) [Volume fraction] 42.4 % Normal 42.0-54.0 [facility] Comment on above: Performed By: #### C BC ####[facility] Yxmzeuvhrh[address] [place], [place] [address]Dr. Garima Pulliam Hemoglobin (Bld) [Mass/Vol] 14.4 g/dL Normal 14.0-18.0 [facility] Comment on above: Performed By: #### C BC ####[facility] Bgebrzprus[address] [place] [address]Dr. Garima Heraclio IG # 0.05 10e3/ul Critically high 0.00-0.03 [facility] Comment on above: Performed By: #### C BC ####[facility] Diztycrkqk[address] [place] [address]Dr. Garima Heraclio IG % 0.4 % Normal 0.0-0.5 [facility] Comment on above: Performed By: #### C BC ####[facility] Oklwlfzzqo[address] [place] [address]Dr. Garima Pulliam LYMPH # 0.8 103/ul Critically low 1.2-3.8 The [facility] Comment on above: Performed By: #### C BC ####[facility] Digpignywn[address] [place], [place] [address]Dr. Garima Pulliam Lymphocytes/100 WBC (Bld) 6.5 % Critically low 20.5-60.0 [facility] Comment on above: Performed By: #### C BC ####[facility] Adotbckifg[address] [place], [place] [address]Dr. Chapisrenu Pulliam MANUAL DIFF REQ NO Normal [facility] Comment on above: Performed By: #### C BC ####[facility] Gcbqopbbzi214[address] [place], [place] [address]Dr. Garima Pulliam MCH (RBC) [Entitic mass] 30.5 pg Normal 25.9-34.0 [facility] Comment on above: Performed By: #### C BC ####[facility] Bifxdzozrn[address] [place] [address]Dr. Garima Heraclio MCHC (RBC) [Mass/Vol] 34.0 g/dL Normal 29.9-35.2 [facility] Comment on above: Performed By: #### C BC ####[facility] Twtfxrkwbi[address] [place], [place] [address]Dr. Garima Heraclio MCV (RBC) [Entitic vol] 89.8 fL Normal 80.0-94.0 [facility] Comment on above: Performed By: #### C BC ####[facility] Qlijyevww[address] [place], [place] [address]Dr. Garima Pulliam MONO # 0.2 103/ul Critically low 0.3-0.8 [facility] Comment on above: Performed By: #### C BC ####[facility] M[address]mldsvf[address] [place] [address]Dr. Garima Pulliam Monocytes/100 WBC (Bld) 2.0 % Normal 1.7-12.0 [facility] Comment on above: Performed By: #### C BC ####[facility] Poigbzyyjf[address] [place] [address]Dr. Garima Pulliam NEUT # 10.5 103/ul Critically high 1.4-6.5 [facility] Comment on above: Performed By: #### C BC ####[facility] Rvococetfc[address] [place], [place] [address]Dr. Garima Pulliam Neutrophils/100 WBC (Bld) 90.4 % Critically high 43.0-75.0 [facility] Comment on above: Performed By: #### C BC ####[facility] Tkguvdmdpn80[address] [place] [address]Dr. Garima Pulliam Platelet mean volume (Bld) [Entitic vol] 9.4 fL Critically low 9.5-13.5 [facility] Comment on above: Performed By: #### C BC ####[facility] Fylzfsbsza[address] [place] [address]Dr. Garima Pulliam PLT 198 103/ul Normal 150-450 [facility] Comment on above: Performed By: #### C BC ####[facility] Trhepinfkl[address] [place], [place] [address]Dr. Garima Pulliam RBC 4.72 106/ul Normal 4.70-6.10 [facility] Comment on above: Performed By: #### C BC ####[facility] Fxlikdpzlb[address] [place], [place] [address]Dr. Garima Pulliam WBC 11.6 103/ul Critically high 4.0-11.0 [facility] Comment on above: Performed By: #### C BC ####[facility] Rnnlproszi[address] [place], [place] [address]Dr. Garima Pulliam PROF CHEM 8 (BAS METB)on Anion gap [Moles/Vol] 11.3 mmol/L Normal [facility] Comment on above: Performed By: #### B NANCY HERNANDEZ ####[facility] Hpfmudnkpo[address] [place] [address]Dr. Garima Pulliam Calcium [Mass/Vol] 8.9 mg/dL Normal 8.5-10.[address] [facility] Comment on above: Performed By: #### B DAVID, NANCY ####[facility] Dpsnlyztzv[address] [place] [address]Dr. Garima Pulliam Chloride [Moles/Vol] 103 mmol/L Normal 98-107 [facility] Comment on above: Performed By: #### NANCY Larkin MP ####[facility] Opjbxjxfsh[address] [place], [place] [address]Dr. Garima Pulliam CO2 [Moles/Vol] 28.2 mmol/L Normal 21.0-32.0 [facility] Comment on above: Performed By: #### NANCY Larkin MP ####[facility] Ylbvdzockd[address] [place] [address]Dr. Chapisrenu Pulliam Creatinine [Mass/Vol] 0.60 mg/dL Critically low 0.70-1.30 [facility] Comment on above: Performed By: #### NANCY Larkin MP ####[facility] Xygirxynab[address] [place] [address]Dr. Garima Pulliam EGFR-AF MONGOLIAN >60 Normal >=60 [facility] Comment on above: Performed By: #### NANCY Larkin MP ####[facility] Bnjcbzicom[address] [place] [address]Dr. Garima Pulliam EGFR-NON AF MONGOLIAN >60 Normal >=60 [facility] Comment on above: Performed By: #### NANCY Larkin MP ####[facility] Hfdwtqtpwq49[address] [place] [address]Dr. Garima Pulliam Glucose [Mass/Vol] 166 mg/dL Critically high 74-106 [facility] Comment on above: Performed By: #### B MP, CMADM ####[facility] T[address]wnfcfjhp[address] [place] [address]Dr. Garima Pulliam Potassium [Moles/Vol] 3.5 mmol/L Normal 3.5-5.1 [facility] Comment on above: Performed By: #### B MP, CMADM ####[facility] Rtwdqjsmkq[address] [place] [address]Dr. Garima Pulliam Sodium [Moles/Vol] 139 mmol/L Normal 136-145 [facility] Comment on above: Performed By: #### B DAVID, CMADM ####[facility] Taaqeyrqci[address] [place] [address]Dr. Garima Pulliam Urea nitrogen [Mass/Vol] 9.0 mg/dL Normal 7.0-18.0 [facility] Comment on above: Performed By: #### B DAVID, CMAANA ROSA ####[facility] [address]dsopvefbl[address] [place], [place] [address]Dr. Garima Pulliam Urea nitrogen/Creatinine [Mass ratio] 15.0 mg/mg Normal [facility] Comment on above: Performed By: #### B DAVID, CMADM ####[facility] Lgsywelalt[address] [place], [place] [address]Dr. Garima Pulliam XR CHEST 1 Von 12-10-2022 XR CHEST 1 V Normal [facility] BNPon 11-27-2022 Natriuretic peptide B (Bld) [Mass/Vol] 95.0 pg/mL Normal <=900.0 [facility] Comment on above: Performed By: #### C MP, HSTROPN, BNP ####[facility] Ujmujacrmh[address] [place], [place] [address]Dr. Garima Heraclio CBC AUTO DIFFon 11-27-2022 BASO # 0.0 103/ul Normal 0.0-0.1 [facility] Comment on above: Performed By: #### C BC ####[facility] Ouxheeveue[address] [place], [place] [address]Dr. Garima Heraclio Basophils/100 WBC (Bld) 0.2 % Normal 0.2-2.0 [facility] Comment on above: Performed By: #### C BC ####[facility] Ow[address]zttsoe[address] [place] [address]Dr. Garima Pulliam EO # 0.2 103/ul Normal 0.0-0.7 [facility] Comment on above: Performed By: #### C BC ####[facility] Aiutnupepm[address]171 [place] [address]Dr. Garima Pulliam Eosinophils/100 WBC (Bld) 2.0 % Normal 0.9-7.0 [facility] Comment on above: Performed By: #### C BC ####[facility] Bjeeyeflji[address] [place], [place] [address]Dr. Garima Pulliam Erythrocyte distribution width (RBC) [Ratio] 13.2 % Normal 11.0-15.0 [facility] Comment on above: Performed By: #### C BC ####[facility] Nytlyfznqi[address] [place], [place] [address]Dr. Garima Pulliam Hematocrit (Bld) [Volume fraction] 42.4 % Normal 42.0-54.0 [facility] Comment on above: Performed By: #### C BC ####[facility] Fqokitpfod[address] [place], [place] [address]Dr. Garima Pulliam Hemoglobin (Bld) [Mass/Vol] 14.4 g/dL Normal 14.0-18.0 [facility] Comment on above: Performed By: #### C BC ####[facility] Ndqcldmrop[address] [place], [place] [address]Dr. Garima Pulliam IG # 0.04 10e3/ul Critically high 0.00-0.03 [facility] Comment on above: Performed By: #### C BC ####[facility] Jtnmipuytd65[address] [place] [address]Dr. Garima Pulliam IG % 0.4 % Normal 0.0-0.5 [facility] Comment on above: Performed By: #### C BC ####[facility] Sgztpdtdan[address] [place], [place] [address]Dr. Garima Pulliam LYMPH # 2.2 103/ul Normal 1.2-3.8 [facility] Comment on above: Performed By: #### C BC ####[facility] Dwzvmbxace44[address] [place] [address]Dr. Garima Pulliam Lymphocytes/100 WBC (Bld) 21.5 % Normal 20.5-60.0 [facility] Comment on above: Performed By: #### C BC ####[facility] Pjwvamaxbu34[address] [place] [address]Dr. Garima Pulliam MANUAL DIFF REQ NO Normal [facility] Comment on above: Performed By: #### C BC ####[facility] Cmnkaoyrmk33[address] [place] [address]Dr. Garima Heraclio MCH (RBC) [Entitic mass] 30.4 pg Normal 25.9-34.0 [facility] Comment on above: Performed By: #### C BC ####[facility] Ouflawyebn[address] [place], [place] [address]Dr. Garima Pulliam MCHC (RBC) [Mass/Vol] 34.0 g/dL Normal 29.9-35.2 [facility] Comment on above: Performed By: #### C BC ####[facility] Orfbfbkevd87[address] [place] [address]Dr. Garima Pulliam MCV (RBC) [Entitic vol] 89.6 fL Normal 80.0-94.0 [facility] Comment on above: Performed By: #### C BC ####[facility] Ffbewmggbq25[address] [place] [address]Dr. Chapisrenu Heraclio MONO # 0.8 103/ul Normal 0.3-0.8 [facility] Comment on above: Performed By: #### C BC ####[facility] Uibclvfnes8635 [place] [address]Dr. Garima Heraclio Monocytes/100 WBC (Bld) 7.7 % Normal 1.7-12.0 [facility] Comment on above: Performed By: #### C BC ####[facility] Xdnihapydy[address] [place], [place] [address]Dr. Garima Pulliam NEUT # 7.0 103/ul Critically high 1.4-6.5 [facility] Comment on above: Performed By: #### C BC ####[facility] Dbaqcyiafc97[address] [place] [address]Dr. Garima Pulliam Neutrophils/100 WBC (Bld) 68.2 % Normal 43.0-75.0 [facility] Comment on above: Performed By: #### C BC ####[facility] Fwqptejljy2619 [place] [address]Dr. Chapisrenu Heraclio Platelet mean volume (Bld) [Entitic vol] 8.9 fL Critically low 9.5-13.5 [facility] Comment on above: Performed By: #### C BC ####[facility] Ptzmigvyre[address] [place] [address]Dr. Garima Pulliam PLT 222 103/ul Normal 150-450 [facility] Comment on above: Performed By: #### C BC ####[facility] Yjlzdhfhdb79[address] [place] [address]Dr. Garima Pulliam RBC 4.73 106/ul Normal 4.70-6.10 [facility] Comment on above: Performed By: #### C BC ####[facility] Uarckcjwht5[address] [place] [address]Dr. Garima Pulliam WBC 10.3 103/ul Normal 4.0-11.0 [facility] Comment on above: Performed By: #### C BC ####[facility] Fr[address]qvepns[address] [place] [address]Dr. Garima Pulliam PROF 14(COMP METB)on 023 Albumin [Mass/Vol] 3.7 g/dL Normal 3.4-5.[address] [facility] Comment on above: Performed By: #### C MP, HSTROPN, BNP ####[facility] Encnibicks[address] [place] [address]Dr. Garima Pulliam Albumin/Globulin [Mass ratio] 1.5 {ratio} Normal [facility] Comment on above: Performed By: #### C MP, HSTROPN, BNP ####[facility] Buwpypyxtz79[address] [place] [address]Dr. Garima Pulliam ALP [Catalytic activity/Vol] 79 U/L Normal 46-116 [facility] Comment on above: Performed By: #### C MP, HSTROPN, BNP ####[facility] Wfhazehmay500[address] [place] [address]Dr. Garima Pulliam ALT [Catalytic activity/Vol] 32 U/L Normal 16-63 [facility] Comment on above: Performed By: #### C MP, HSTROPN, BNP ####[facility] Dsftkaowbh58[address] [place] [address]Dr. Garima Pulliam Anion gap [Moles/Vol] 9.5 mmol/L Normal [facility] Comment on above: Performed By: #### C MP, HSTROPN, BNP ####[facility] Twmjmcccqg[address] [place], [place] [address]Dr. Garima Pulliam AST [Catalytic activity/Vol] 25 U/L Normal 15-37 [facility] Comment on above: Performed By: #### C MP, HSTROPN, BNP ####[facility] Nrlgowzygp[address] [place], [place] [address]Dr. Garima Pulliam Bilirubin [Mass/Vol] 0.4 mg/dL Normal 0.2-1.0 [facility] Comment on above: Performed By: #### C MP, HSTROPN, BNP ####[facility] Ogzusbmtid[address] [place], [place] [address]Dr. Garima Pulliam Calcium [Mass/Vol] 8.9 mg/dL Normal 8.5-10.[address] [facility] Comment on above: Performed By: #### C MP, HSTROPN, BNP ####[facility] Lyfmbdztyt[address] [place], [place] [address]Dr. Garima Pulliam Chloride [Moles/Vol] 103 mmol/L Normal 98-107 [facility] Comment on above: Performed By: #### C MP, HSTROPN, BNP ####[facility] Cksjxhwdpc[address] [place], [place] [address]Dr. Garima Pulliam CO2 [Moles/Vol] 28.6 mmol/L Normal 21.0-32.0 [facility] Comment on above: Performed By: #### C MP, HSTROPN, BNP ####[facility] Bgcskzupsi37[address] [place] [address]Dr. Garima Pulliam Creatinine [Mass/Vol] 0.72 mg/dL Normal 0.70-1.30 [facility] Comment on above: Performed By: #### C MP, HSTROPN, BNP ####[facility] Zdvinpvbjk[address] [place] [address]Dr. Garima Pulliam EGFR-AF MONGOLIAN >60 Normal >=60 [facility] Comment on above: Performed By: #### C MP, HSTROPN, BNP ####[facility] Akemhicztv[address] [place] [address]Dr. Garima Pulliam EGFR-NON AF MONGOLIAN >60 Normal >=60 [facility] Comment on above: Performed By: #### C MP, HSTROPN, BNP ####[facility] Lfwqnziahp6544 [place] [address]Dr. Garima Pulliam Globulin (S) [Mass/Vol] 2.5 g/dL Normal [facility] Comment on above: Performed By: #### C MP, HSTROPN, BNP ####[facility] Cspozprskw[address] [place], [place] [address]Dr. Garima Pulliam Glucose [Mass/Vol] 114 mg/dL Critically high 74-106 [facility] Comment on above: Performed By: #### C MP, HSTROPN, BNP ####[facility] Xlwatdvrzt[address] [place], [place] [address]Dr. Garima Pulliam Potassium [Moles/Vol] 4.1 mmol/L Normal 3.5-5.1 [facility] Comment on above: Performed By: #### C MP, HSTROPN, BNP ####[facility] Htuvkmqtyp[address] [place], [place] [address]Dr. Garima Pulliam Protein [Mass/Vol] 6.2 g/dL Critically low 6.4-8.2 Th [facility] Comment on above: Performed By: #### C MP, HSTROPN, BNP ####[facility] Uojfvcphzf15[address] [place], [place] [address]Dr. Yilan Pulliam Sodium [Moles/Vol] 137 mmol/L Normal 136-145 [facility] Comment on above: Performed By: #### C MP, HSTROPN, BNP ####[facility] Xgjvtbdjul6894 [place] [address]Dr. Garima Pulliam Urea nitrogen [Mass/Vol] 13.0 mg/dL Normal 7.0-18.0 [facility] Comment on above: Performed By: #### C MP, HSTROPN, BNP ####[facility] Pwzoejimpv9[address] [place] [address]Dr. Garima Heraclio Urea nitrogen/Creatinine [Mass ratio] 18.1 mg/mg Normal [facility] Comment on above: Performed By: #### C MP, HSTROPN, BNP ####[facility] Ghmvlirsek[address] [place], [place] [address]Dr. Garima Pulliam TROPONIN, HIGH SENSITIVITYon 11-27-2022 HSTROP 11.8 pg/mL Normal 4.0-76.1 [facility] Comment on above: Result Comment: CUT- OFF POINTS HAVE BEEN ESTABLISHED BASED ON THE FOURTH UNIVERSAL DEFINITIONS OF MYOCARDIALINFARCTION. THE UPPER REFERENCE LIMIT (URL) OF TROPONIN, DEFINED THE 99TH PERCENTILE OFcTnI DISTRIBUTION IN A REFERENCE POPULATION, HAS BEEN CONFIRMED THE DECISION THRESHOLDFOR [place] DIAGNOSIS. Performed By: #### C MP, HSTROPN, BNP ####[facility] Zeepknlpbm[address] [place], [place] [address]Dr. Garima Pulliam XR CHEST 1 Von 11-27-2022 XR CHEST 1 V Normal [facility] BNPon 11-20-2022 Natriuretic peptide B (Bld) [Mass/Vol] 73.0 pg/mL Normal <=900.0 [facility] Comment on above: Performed By: #### B MP, HSTROPN, BNP ####[facility] [address]jutdhgmei[address] [place], [place] [address]Dr. Garima Heraclio CBC AUTO DIFFon 11-20-2022 BASO # 0.0 103/ul Normal 0.0-0.1 [facility] Comment on above: Performed By: #### C BC ####[facility] Zhhvdtsehd[address] [place] [address]Dr. Garima Pulliam Basophils/100 WBC (Bld) 0.3 % Normal 0.2-2.0 [facility] Comment on above: Performed By: #### C BC ####[facility] Uregqzudhm9097 [place] [address]Dr. Garima Pulliam EO # 0.2 103/ul Normal 0.0-0.7 [facility] Comment on above: Performed By: #### C BC ####[facility] Erwijobagb67[address] [place] [address]Dr. Garima Pulliam Eosinophils/100 WBC (Bld) 2.1 % Normal 0.9-7.0 [facility] Comment on above: Performed By: #### C BC ####[facility] Myowymbbbt[address] [place], [place] [address]Dr. Garima Pulliam Erythrocyte distribution width (RBC) [Ratio] 13.2 % Normal 11.0-15.0 [facility] Comment on above: Performed By: #### C BC ####[facility] [address] [place], [place] [address]Dr. Garima Pulliam Hematocrit (Bld) [Volume fraction] 43.4 % Normal 42.0-54.0 [facility] Comment on above: Performed By: #### C BC ####[facility] Fgsromggar[address] [place], [place] [address]Dr. Garima Pulliam Hemoglobin (Bld) [Mass/Vol] 14.6 g/dL Normal 14.0-18.0 [facility] Comment on above: Performed By: #### C BC ####[facility] Okyntfnyxy4835 [place] [phone]. Garima Pulliam IG # 0.02 10e3/ul Normal 0.00-0.03 [facility] Comment on above: Performed By: #### C BC ####[facility] Xummvgqjww2473 [place] [address]Dr. Garima Pulliam IG % 0.2 % Normal 0.0-0.5 [facility] Comment on above: Performed By: #### C BC ####[facility] Lwenxjkydx0560 [place] [address]Dr. Garima Heraclio LYMPH # 2.1 103/ul Normal 1.2-3.8 [facility] Comment on above: Performed By: #### C BC ####[facility] Hypahinhjc0082 [place] [address]Dr. Garima Pulliam Lymphocytes/100 WBC (Bld) 19.2 % Critically low 20.5-60.0 [facility] Comment on above: Performed By: #### C BC ####[facility] Tnlgzlbfwa3820 [place] [phone]. Garima Heraclio MANUAL DIFF REQ NO Normal [facility] Comment on above: Performed By: #### C BC ####[facility] Vhhwahmqig6853 [place] [address]Dr. Garima Heraclio MCH (RBC) [Entitic mass] 30.4 pg Normal 25.9-34.0 [facility] Comment on above: Performed By: #### C BC ####[facility] Xilfeufybj[address] [place] [address]Dr. Garima Pulliam MCHC (RBC) [Mass/Vol] 33.6 g/dL Normal 29.9-35.2 [facility] Comment on above: Performed By: #### C BC ####[facility] Htiljubvsf3816 [place] [id number]. Garima Heraclio MCV (RBC) [Entitic vol] 90.4 fL Normal 80.0-94.0 [facility] Comment on above: Performed By: #### C BC ####[facility] Admspzaktw4763 [place] [address]Dr. Garima Heraclio MONO # 0.6 103/ul Normal 0.3-0.8 [facility] Comment on above: Performed By: #### C BC ####[facility] Egmzagtzkh3[address] [place] [address]Dr. Chapisrenu Pulliam Monocytes/100 WBC (Bld) 5.8 % Normal 1.7-12.0 [facility] Comment on above: Performed By: #### C BC ####[facility] Xuebth[address]qtl[address] [place], [place] [address]Si. Garima Pulliam NEUT # 7.8 103/ul Critically high 1.4-6.5 [facility] Comment on above: Performed By: #### C BC ####[facility] Pzpiqlfzsh7240 [place] [address]Dr. Garima Pulliam Neutrophils/100 WBC (Bld) 72.4 % Normal 43.0-75.0 [facility] Comment on above: Performed By: #### C BC ####[facility] Dbhuockofg0296 [place] [phone]. Garima Pulliam Platelet mean volume (Bld) [Entitic vol] 8.7 fL Critically low 9.5-13.5 [facility] Comment on above: Performed By: #### C BC ####[facility] Nhgqmhgcvk7089 [place] [phone]. Garima Pulliam PLT 184 103/ul Normal 150-450 [facility] Comment on above: Performed By: #### C BC ####[facility] Yxvohxerkl1146 [place] [address]Dr. Garima Pulliam RBC 4.80 106/ul Normal 4.70-6.10 [facility] Comment on above: Performed By: #### C BC ####[facility] Xzthivtyxl1930 [place] [address]Dr. Garima Pulliam WBC 10.8 103/ul Normal 4.0-11.0 [facility] Comment on above: Performed By: #### C BC ####[facility] Azqbsgscnl8246 [place] [phone]. Garima Pulliam [facility]24 SARS-CoV-2 (COVID-19) RNA MARIE+probe Ql (Unsp spec) Not detected Normal NOT DETECTED [facility] Comment on above: Result Comment: When [...] for this test is supported by the Pharmacy Technician Program Director of Health and Human Service's declaration [...] be used). Performed By: #### C VDTBH ####[facility] [address]eqj[address] [place], [place] [address]Dr. Garima Heraclio INFLUENZA A AND B AGon 11-20 INFLUANEGH SEE BELOW Normal [facility] Comment on above: Result Comment: Nega tive for Flu A protein angiten. Infection due to Flu A cannot be ruled out. Flu A angiten in the sample may be below the detection limit of the test. Performed By: #### I NFLUAB ####[facility] Yumh[address]ra[address] [place], [place] [address]Dr. Chapisrenu Heraclio INFLUBNEGH SEE BELOW Normal [facility] Comment on above: Result Comment: Nega tive for Flu B protein antigen. Infection due to Flu B cannot be ruled out. Flu B antigen in the sample may be below the detection limit of the test. Performed By: #### I NFLUAB ####[facility] Opibngobse[address] [place], [place] [address]Dr. Garima Pulliam INFLUENZA A AG Negative Normal NEGATIVE SEE COMMENT [facility] Comment on above: Performed By: #### I NFLUAB ####[facility] Qeroauncpi[address] [place], [place] [address]Dr. Garima [facility] INFLUENZA B AG Negative Normal NEGATIVE SEE COMMENT [facility] Comment on above: Performed By: #### I NFLUAB ####[facility] Oraceveyyy[address] [place], [place] [address]Dr. Garima Pulliam PROF CHEM 8 (BAS METB)on Anion gap [Moles/Vol] 8.2 mmol/L Normal [facility] Comment on above: Performed By: #### B MP, HSTROPN, BNP ####[facility] [address] [place] [address]Dr. Garima Pulliam Calcium [Mass/Vol] 8.7 mg/dL Normal 8.5-10.[address] [facility] Comment on above: Performed By: #### B MP, HSTROPN, BNP ####[facility] [address] [place] [address]Dr. Garima Pulliam Chloride [Moles/Vol] 103 mmol/L Normal 98-107 [facility] Comment on above: Performed By: #### B MP, HSTROPN, BNP ####[facility] Agpzsjpgoz[address] [place], [place] [address]Dr. Garima Pulliam CO2 [Moles/Vol] 29.4 mmol/L Normal 21.0-32.0 [facility] Comment on above: Performed By: #### B MP, HSTROPN, BNP ####[facility] Tozmcd[address]fi[address] [place], [place] [address]Dr. Garima Pulliam Creatinine [Mass/Vol] 0.69 mg/dL Critically low 0.70-1.30 [facility] Comment on above: Performed By: #### B MP, HSTROPN, BNP ####[facility] [address]juip[address] [place] [address]Dr. Garima Pulliam EGFR-AF MONGOLIAN >60 Normal >=60 [facility] Comment on above: Performed By: #### B MP, HSTROPN, BNP ####[facility] Jukstieeqg[address] [place], [place] [address]Dr. Garima Pulliam EGFR-NON AF MONGOLIAN >60 Normal >=60 [facility] Comment on above: Performed By: #### B MP, HSTROPN, BNP ####[facility] [address]ovzohteyy[address] [place] [address]Dr. Garima Pulliam Glucose [Mass/Vol] 209 mg/dL Critically high 74-106 [facility] Comment on above: Performed By: #### B MP, HSTROPN, BNP ####[facility] Djgxxwztja[address] [place] [address]Dr. Garima Pulliam Potassium [Moles/Vol] 3.6 mmol/L Normal 3.5-5.1 [facility] Comment on above: Performed By: #### B MP, HSTROPN, BNP ####[facility] Ypuxcjuuew[address] [place] [address]Dr. Garima Pulliam Sodium [Moles/Vol] 137 mmol/L Normal 136-145 [facility] Comment on above: Performed By: #### B MP, HSTROPN, BNP ####[facility] Hlmskiknzo[address] [place] [address]Dr. Garima Pulliam Urea nitrogen [Mass/Vol] 11.0 mg/dL Normal 7.0-18.0 [facility] Comment on above: Performed By: #### B MP, HSTROPN, BNP ####[facility] Suluxaaqtv[address] [place] [address]Dr. Garima Pulliam Urea nitrogen/Creatinine [Mass ratio] 15.9 mg/mg Normal [facility] Comment on above: Performed By: #### B MP, HSTROPN, BNP ####[facility] Cnzjcowjjz[address] [place] [address]Dr. Garima Pulliam TROPONIN, HIGH SENSITIVITYon 11-20-2022 HSTROP 8.7 pg/mL Normal 4.0-76.1 [facility] Comment on above: Result Comment: CUT- OFF POINTS HAVE BEEN ESTABLISHED BASED ON THE FOURTH UNIVERSAL DEFINITIONS OF MYOCARDIALINFARCTION. THE UPPER REFERENCE LIMIT (URL) OF TROPONIN, DEFINED THE 99TH PERCENTILE OFcTnI DISTRIBUTION IN A REFERENCE POPULATION, HAS BEEN CONFIRMED THE DECISION THRESHOLDFOR [place] DIAGNOSIS. Performed By: #### B MP, HSTROPN, BNP ####[facility] [address]wlzb[address] [place] [address]Dr. Garima Pulliam XR CHEST 1 Von 11-20-2022 XR CHEST 1 V Normal [facility] XR CHEST 1 Von 10-02-2022 XR CHEST 1 V Normal [facility] BNPon 09-29-2022 Natriuretic peptide B (Bld) [Mass/Vol] 107.0 pg/mL Normal <=900.0 [facility] Comment on above: Performed By: #### C MP, BNP, CMADM ####[facility] [address]dt[address] [place] [address]Dr. Garima Pulliam CARDIAC NASH ADMITon 022 CK [Catalytic activity/Vol] 190 U/L Normal 39-308 [facility] Comment on above: Performed By: #### C MP, BNP, CMADM ####[facility] Aofwwdebcr[address] [place] [address]Dr. Garima Pulliam CK.MB [Mass/Vol] 11.11 ng/mL Critically high <=3.60 [facility] Comment on above: Performed By: #### C MP, BNP, CMADM ####[facility] Qzkyfzwrnz86[address] [place] [address]Dr. Garima Pulliam HSTROP 11.8 pg/mL Normal 4.0-76.1 [facility] Comment on above: Result Comment: CUT- OFF POINTS HAVE BEEN ESTABLISHED BASED ON THE FOURTH UNIVERSAL DEFINITIONS OF MYOCARDIALINFARCTION. THE UPPER REFERENCE LIMIT (URL) OF TROPONIN, DEFINED THE 99TH PERCENTILE OFcTnI DISTRIBUTION IN A REFERENCE POPULATION, HAS BEEN CONFIRMED THE DECISION THRESHOLDFOR [place] DIAGNOSIS. Performed By: #### C MP, BNP, CMADM ####[facility] T[address]rnfbcbq80[address] [place] [address]Dr. Garima Pulliam DORIS 133 ng/mL Critically high 16-96 [facility] Comment on above: Performed By: #### C MP, BNP, CMADM ####[facility] Rkbvmulsul[address] [place] [address]Dr. Garima Pulliam CBC AUTO DIFFon 09-29-2022 BASO # 0.0 103/ul Normal 0.0-0.1 [facility] Comment on above: Performed By: #### C BC ####[facility] Wjqwmllmhv[address] [place] [address]Dr. Garima Heraclio Basophils/100 WBC (Bld) 0.2 % Normal 0.2-2.0 [facility] Comment on above: Performed By: #### C BC ####[facility] Yvsmzyetpw76[address] [place] [id number]. Garima Pulliam EO # 0.1 103/ul Normal 0.0-0.7 [facility] Comment on above: Performed By: #### C BC ####[facility] Ybasnuupfk[address] [place] [phone]. Garima Pulliam Eosinophils/100 WBC (Bld) 1.4 % Normal 0.9-7.0 [facility] Comment on above: Performed By: #### C BC ####[facility] Kfnsmyidpa[address] [place], [place] [address]Dr. Garima Pulliam Erythrocyte distribution width (RBC) [Ratio] 13.7 % Normal 11.0-15.0 [facility] Comment on above: Performed By: #### C BC ####[facility] Gudkhjqefi[address] [place], [place] [address]Dr. Garima Pulliam Hematocrit (Bld) [Volume fraction] 45.4 % Normal 42.0-54.0 [facility] Comment on above: Performed By: #### C BC ####[facility] Lifltuolvj[address] [place], [place] [address]Dr. Garima Pulliam Hemoglobin (Bld) [Mass/Vol] 14.8 g/dL Normal 14.0-18.0 [facility] Comment on above: Performed By: #### C BC ####[facility] Rahmhwpwwo[address] [place], [place] [address]Dr. Garima Pulliam IG # 0.04 10e3/ul Critically high 0.00-0.03 [facility] Comment on above: Performed By: #### C BC ####[facility] Nkfdzcwacu[address] [place], [place] [address]Dr. Garima Pulliam IG % 0.5 % Normal 0.0-0.5 [facility] Comment on above: Performed By: #### C BC ####[facility] Iilvzuairf[address] [place], [place] [address]Dr. Garima Pulliam LYMPH # 1.1 103/ul Critically low 1.2-3.8 [facility] Comment on above: Performed By: #### C BC ####[facility] Pbogglffej4[address] [place] [phone]. Garima Pulliam Lymphocytes/100 WBC (Bld) 12.7 % Critically low 20.5-60.0 [facility] Comment on above: Performed By: #### C BC ####[facility] Smzcsxntsg7[address] [place] [phone]. Chapisrenu Pulliam MANUAL DIFF REQ NO Normal [facility] Comment on above: Performed By: #### C BC ####[facility] Eqiuhlixcs6537 [place] [phone]. Garima Heraclio MCH (RBC) [Entitic mass] 30.0 pg Normal 25.9-34.0 [facility] Comment on above: Performed By: #### C BC ####[facility] Cptoikkhmi[address] [place], [place] [address]Dr. Garima Heraclio MCHC (RBC) [Mass/Vol] 32.6 g/dL Normal 29.9-35.2 [facility] Comment on above: Performed By: #### C BC ####[facility] [address] [place], [place] [address]Dr. Gariam Heraclio MCV (RBC) [Entitic vol] 91.9 fL Normal 80.0-94.0 [facility] Comment on above: Performed By: #### C BC ####[facility] Cqdqshfply[address] [place], [place] [address]Dr. Chapisrenu Heraclio MONO # 0.4 103/ul Normal 0.3-0.8 [facility] Comment on above: Performed By: #### C BC ####[facility] U[address] [place], [place] [address]Dr. Chapisrenu Pulliam Monocytes/100 WBC (Bld) 4.8 % Normal 1.7-12.0 [facility] Comment on above: Performed By: #### C BC ####[facility] Q[address]akzlnmlc[address] [place], [place] [address]Dr. Garima Pulliam NEUT # 7.1 103/ul Critically high 1.4-6.5 [facility] Comment on above: Performed By: #### C BC ####[facility] Mwtauyimxv76[address] [place] [phone]. Garima Pulliam Neutrophils/100 WBC (Bld) 80.4 % Critically high 43.0-75.0 [facility] Comment on above: Performed By: #### C BC ####[facility] Jiuzofoulc1846 [place] [phone]. Garima Pulliam Platelet mean volume (Bld) [Entitic vol] 9.1 fL Critically low 9.5-13.5 [facility] Comment on above: Performed By: #### C BC ####[facility] Blyvwyhknt4[address] [place] [phone]. Garima Pulliam PLT 200 103/ul Normal 150-450 [facility] Comment on above: Performed By: #### C BC ####[facility] Obgcjhpncu85[address] [place] [phone]. Garima Pulliam RBC 4.94 106/ul Normal 4.70-6.10 [facility] Comment on above: Performed By: #### C BC ####[facility] Vmnscrytjl3920 [place] [phone]. Garima Pulliam WBC 8.9 103/ul Normal 4.0-11.0 [facility] Comment on above: Performed By: #### C BC ####[facility] Hukdrvlqcf0087 [place] [phone]. Garima Pulliam Covid-19 PCR (CVDTB)on SARS-CoV-2 (COVID-19) RNA MARIE+probe Ql (Unsp spec) Not detected Normal NOT DETECTED [facility] Comment on above: Result Comment: When [...] for this test is supported by the Pharmacy Technician Program Director of Health and Human Service's declaration [...] be used). Performed By: #### C VDTBH ####[facility] [address]gejo[address] [place] [address]Dr. Garima Pulliam LACTATE/LACTIC ACIDon 2021 Lactate [Moles/Vol] 1.7 mmol/L Normal 0.4-1.9 [facility] Comment on above: Performed By: #### L ACT ####[facility] Kuilryiqrv[address] [place], [place] [address]Dr. Garima Pulliam PROF 14(COMP METB)on 022 Albumin [Mass/Vol] 3.8 g/dL Normal 3.4-5.[address] [facility] Comment on above: Performed By: #### C MP, BNP, CMADM ####[facility] Wvwfvjfyne[address] [place] [address]Dr. Garima Pulliam Albumin/Globulin [Mass ratio] 1.5 {ratio} Normal [facility] Comment on above: Performed By: #### C MP, BNP, CMADM ####[facility] Otlnlvcdlb6915 [place] [address]Dr. Garima Pulliam ALP [Catalytic activity/Vol] 62 U/L Normal 46-116 [facility] Comment on above: Performed By: #### C MP, BNP, CMADM ####[facility] Kdccycvyzz[address] [place] [address]Dr. Garima Pulliam ALT [Catalytic activity/Vol] 37 U/L Normal 16-63 [facility] Comment on above: Performed By: #### C MP, BNP, CMADM ####[facility] Wwnpghilcc7535 [place] [address]Dr. Garima Pulliam Anion gap [Moles/Vol] 8.0 mmol/L Normal [facility] Comment on above: Performed By: #### C MP, BNP, CMADM ####[facility] Dbyzopdwte[address] [place] [address]Dr. Garima Pulliam AST [Catalytic activity/Vol] 20 U/L Normal 15-37 [facility] Comment on above: Performed By: #### C MP, BNP, CMADM ####[facility] Ptevtnfbjw20[address] [place] [address]Dr. Garima Pulliam Bilirubin [Mass/Vol] 0.6 mg/dL Normal 0.2-1.0 [facility] Comment on above: Performed By: #### C MP, BNP, CMADM ####[facility] Nhglwafwoo13[address] [place] [address]Dr. Garima Pulliam Calcium [Mass/Vol] 9.1 mg/dL Normal 8.5-10.[address] [facility] Comment on above: Performed By: #### C MP, BNP, CMADM ####[facility] K[address]ujgwmk[address] [place], [place] [address]Dr. Garima Pulliam Chloride [Moles/Vol] 103 mmol/L Normal 98-107 [facility] Comment on above: Performed By: #### C MP, BNP, CMADM ####[facility] [address] [place], [place] [address]Dr. Garima Pulliam CO2 [Moles/Vol] 31.8 mmol/L Normal 21.0-32.0 [facility] Comment on above: Performed By: #### C MP, BNP, CMADM ####[facility] Hscujanrpm[address] [place], [place] [address]Dr. Garima Pulliam Creatinine [Mass/Vol] 0.63 mg/dL Critically low 0.70-1.30 [facility] Comment on above: Performed By: #### C MP, BNP, CMADM ####[facility] [address]aehcvg[address] [place], [place] [address]Dr. Garima Pulliam EGFR-AF MONGOLIAN >60 Normal >=60 [facility] Comment on above: Performed By: #### C MP, BNP, CMADM ####[facility] Q[address]qjeajbki[address] [place], [place] [address]Dr. Garima Pulliam EGFR-NON AF MONGOLIAN >60 Normal >=60 [facility] Comment on above: Performed By: #### C MP, BNP, CMADM ####[facility] Zprxxjahik[address] [place] [address]Dr. Garima Pulliam Globulin (S) [Mass/Vol] 2.6 g/dL Normal [facility] Comment on above: Performed By: #### C MP, BNP, CMADM ####[facility] Ysfimfdnva4914 [place] [address]Dr. Garima Pulliam Glucose [Mass/Vol] 103 mg/dL Normal 74-106 [facility] Comment on above: Performed By: #### C MP, BNP, CMADM ####[facility] Elnsbxfgye4715 [place] [address]Dr. Garima Pulliam Potassium [Moles/Vol] 3.8 mmol/L Normal 3.5-5.1 [facility] Comment on above: Performed By: #### C MP, BNP, CMADM ####[facility] Aadhyeykuc[address] [place] [address]Dr. Garima Pulliam Protein [Mass/Vol] 6.4 g/dL Normal 6.4-8.2 [facility] Comment on above: Performed By: #### C MP, BNP, CMADM ####[facility] Reijsqqmlw30[address] [place] [address]Dr. Garima Pulliam Sodium [Moles/Vol] 139 mmol/L Normal 136-145 [facility] Comment on above: Performed By: #### C MP, BNP, CMADM ####[facility] Ilpwujsqqr2946 [place] [address]Dr. Garima Pulliam Urea nitrogen [Mass/Vol] 7.0 mg/dL Normal 7.0-18.0 [facility] Comment on above: Performed By: #### C MP, BNP, CMADM ####[facility] Qwrmukmqdp3250 [place] [address]Dr. Garima Pulliam Urea nitrogen/Creatinine [Mass ratio] 11.1 mg/mg Normal [facility] Comment on above: Performed By: #### C MP, BNP, CMADM ####[facility] Jghfmgvuqt1533 [place] [address]Dr. Garima Pulliam PROTIMEon 09-29-2022 INR Coag (PPP) [Relative time] 1.14 {INR} Normal [facility] Comment on above: Performed By: #### P T, PTT ####[facility] [address]rzahh[address] [place], [place] [address]Dr. Garima Pulliam INR GUIDELINES SEE BELOW Normal [facility] Comment on above: Result Comment: WESLEY RED INR: 2.0 - 3.0 CONDITIONS NOT LISTED BELOW 2.5 - 3.5 FOR PROSTHETIC HEART VALVE REPLACEMENT 2.5 - 3.5 RECURRENT THROMBOSIS Performed By: #### P T, PTT ####[facility] Igkccmvxnw[address] [place], [place] [address]Dr. Garima Pulliam PT Coag (PPP) [Time] 12.2 s Critically high 9.0-11.6 [facility] Comment on above: Performed By: #### P T, PTT ####[facility] B[address]qkktq[address] [place], [place] [address]Dr. Garima Pulliam PTTon 09-29-2022 aPTT Coag (Bld) [Time] 29.3 s Normal 22.3-36.2 [facility] Comment on above: Performed By: #### P T, PTT ####[facility] Fxuflbjexz[address] [place], [place] [address]Dr. Garima Pulliam XR CHEST 1 Von 09-29-2022 XR CHEST 1 V Normal [facility] CBC AUTO DIFFon 09-26-2022 BASO # 0.0 103/ul Normal 0.0-0.1 [facility] Comment on above: Performed By: #### C BC ####[facility] Mazmthuyii9[address] [place], [place] [address]Dr. Garima Pulliam Basophils/100 WBC (Bld) 0.2 % Normal 0.2-2.0 [facility] Comment on above: Performed By: #### C BC ####[facility] Bmomlefmxb408[address] [place], [place] [address]Dr. Garima Pulliam EO # 0.1 103/ul Normal 0.0-0.7 [facility] Comment on above: Performed By: #### C BC ####[facility] Kkwreluyhj[address] [place], [place] [address]Dr. Garima Heraclio Eosinophils/100 WBC (Bld) 1.0 % Normal 0.9-7.0 [facility] Comment on above: Performed By: #### C BC ####[facility] Fbvhszeaav[address] [place], [place] [address]Dr. Garima Pulliam Erythrocyte distribution width (RBC) [Ratio] 13.4 % Normal 11.0-15.0 [facility] Comment on above: Performed By: #### C BC ####[facility] Kfolzcuoci90[address] [place], [place] [address]Dr. Garima Pulliam Hematocrit (Bld) [Volume fraction] 46.3 % Normal 42.0-54.0 [facility] Comment on above: Performed By: #### C BC ####[facility] Supjcxxmgc[address] [place], [place] [address]Dr. Garima Pulliam Hemoglobin (Bld) [Mass/Vol] 15.3 g/dL Normal 14.0-18.0 [facility] Comment on above: Performed By: #### C BC ####[facility] Nvezkkgueo[address] [place], [place] [address]Dr. Garima Pulliam IG # 0.05 10e3/ul Critically high 0.00-0.03 [facility] Comment on above: Performed By: #### C BC ####[facility] Avyacjbbwm[address] [place], [place] [address]Dr. Garima Pulliam IG % 0.4 % Normal 0.0-0.5 [facility] Comment on above: Performed By: #### C BC ####[facility] Tktyjachtv[address] [place], [place] [address]DrAdalberto Pulliam LYMPH # 1.7 103/ul Normal 1.2-3.8 [facility] Comment on above: Performed By: #### C BC ####[facility] [address]qvyzlvq[address] [place], [place] [address]Dr. Garima Pulliam Lymphocytes/100 WBC (Bld) 12.7 % Critically low 20.5-60.0 [facility] Comment on above: Performed By: #### C BC ####[facility] Eintmqorxh[address] [place] [address]Dr. Garima Pulliam MANUAL DIFF REQ NO Normal [facility] Comment on above: Performed By: #### C BC ####[facility] Pvndybvxcs0751 [place] [address]Dr. Garima Pulliam MCH (RBC) [Entitic mass] 30.1 pg Normal 25.9-34.0 [facility] Comment on above: Performed By: #### C BC ####[facility] Oxtlobmdfe[address] [place], [place] [address]Dr. Garima Pulliam MCHC (RBC) [Mass/Vol] 33.0 g/dL Normal 29.9-35.2 [facility] Comment on above: Performed By: #### C BC ####[facility] Apbkbutzjj[address] [place], [place] [address]Dr. Garima Pulliam MCV (RBC) [Entitic vol] 91.1 fL Normal 80.0-94.0 [facility] Comment on above: Performed By: #### C BC ####[facility] Kuuoxnchnr[address] [place], [place] [address]DrAdalberto Pulliam MONO # 0.9 103/ul Critically high 0.3-0.8 [facility] Comment on above: Performed By: #### C BC ####[facility] Vjjolrzhdx[address] [place], [place] [address]Dr. Garima Pulliam Monocytes/100 WBC (Bld) 7.0 % Normal 1.7-12.0 [facility] Comment on above: Performed By: #### C BC ####[facility] Nfgbdmlpan[address] [place], [place] [address]DrAdalberto Pulliam NEUT # 10.4 103/ul Critically high 1.4-6.5 [facility] Comment on above: Performed By: #### C BC ####[facility] N[address]xx[address]kcvcg[address] [place], [place] [address]DrAdalberto Pulliam Neutrophils/100 WBC (Bld) 78.7 % Critically high 43.0-75.0 [facility] Comment on above: Performed By: #### C BC ####[facility] Xcobedztaa[address] [place] [address]Dr. Garima Pulliam Platelet mean volume (Bld) [Entitic vol] 8.9 fL Critically low 9.5-13.5 [facility] Comment on above: Performed By: #### C BC ####[facility] Lymiajxqfh28[address] [place] [address]Dr. Garima Pulliam PLT 195 103/ul Normal 150-450 [facility] Comment on above: Performed By: #### C BC ####[facility] Kubfhxsnyx[address] [place], [place] [address]Dr. Garima Pulliam RBC 5.08 106/ul Normal 4.70-6.10 [facility] Comment on above: Performed By: #### C BC ####[facility] Eajbgmxfxz[address] [place], [place] [address]Dr. Garima Pulliam WBC 13.2 103/ul Critically high 4.0-11.0 [facility] Comment on above: Performed By: #### C BC ####[facility] [address]wrylsy[address] [place], [place] [address]Dr. Garima Pulliam PROF 14(COMP METB)on 022 Albumin [Mass/Vol] 3.5 g/dL Normal 3.4-5.[address] [facility] Comment on above: Performed By: #### C DAVID HSTROPN ####[facility] Bhbpqkspru8[address] [place] [address]Dr. Garima Pulliam Albumin/Globulin [Mass ratio] 1.2 {ratio} Normal [facility] Comment on above: Performed By: #### C DAVID HSTROPN ####[facility] Trmsgqdiyh[address] [place], [place] [address]Dr. Garima Pulliam ALP [Catalytic activity/Vol] 71 U/L Normal 46-116 [facility] Comment on above: Performed By: #### C DAVID HSTROPN ####[facility] Gizysxcogp[address] [place] [address]Dr. Garima Pulliam ALT [Catalytic activity/Vol] 37 U/L Normal 16-63 [facility] Comment on above: Performed By: #### C DAVID, HSTROPN ####[facility] Psdhlkdpza0864 [place] [address]Dr. Garima Pulliam Anion gap [Moles/Vol] 4.8 mmol/L Normal [facility] Comment on above: Performed By: #### C DAVID, HSTROPN ####[facility] Kypzyjcpza[address] [place] [address]Dr. Garima Pulliam AST [Catalytic activity/Vol] 21 U/L Normal 15-37 [facility] Comment on above: Performed By: #### C DAVID, HSTROPN ####[facility] Gilpugxuuw[address] [place] [address]Dr. Chapisrenu Pulliam Bilirubin [Mass/Vol] 0.3 mg/dL Normal 0.2-1.0 [facility] Comment on above: Performed By: #### C DAVID, HSTROPN ####[facility] Fdrneimzvb77[address] [place] [address]Dr. Garima Pulliam Calcium [Mass/Vol] 8.9 mg/dL Normal 8.5-10.[address] [facility] Comment on above: Performed By: #### C DAVID, HSTROPN ####[facility] Ggsybjkxrt05[address] [place] [address]Dr. Garima Pulliam Chloride [Moles/Vol] 106 mmol/L Normal 98-107 [facility] Comment on above: Performed By: #### C DAVID, HSTROPN ####[facility] Oodcqbnuae34[address] [place] [address]Dr. Garima Pulliam CO2 [Moles/Vol] 29.8 mmol/L Normal 21.0-32.0 [facility] Comment on above: Performed By: #### C DAVID, HSTROPN ####[facility] Qjfknivvgh8603 [place] [address]Dr. Chapisrenu Pulliam Creatinine [Mass/Vol] 0.68 mg/dL Critically low 0.70-1.30 [facility] Comment on above: Performed By: #### C MP, HSTROPN ####[facility] Mtupavozam[address] [place] [address]Dr. Chapislan Pulliam EGFR-AF MONGOLIAN >60 Normal >=60 [facility] Comment on above: Performed By: #### C MP, HSTROPN ####[facility] [address]tvqszxdvq[address] [place] [address]Dr. Yilan Pulliam EGFR-NON AF MONGOLIAN >60 Normal >=60 [facility] Comment on above: Performed By: #### C MP, HSTROPN ####[facility] Xhauqbjhxu03[address] [place] [address]Dr. Garima Pulliam Globulin (S) [Mass/Vol] 2.8 g/dL Normal [facility] Comment on above: Performed By: #### C MP, HSTROPN ####[facility] Ylkrvaohck64[address] [place] [address]Dr. Garima Pulliam Glucose [Mass/Vol] 133 mg/dL Critically high 74-106 [facility] Comment on above: Performed By: #### C MP, HSTROPN ####[facility] Lmgbbyddgn1501 [place] [address]Dr. Chapisrenu Pulliam Potassium [Moles/Vol] 3.6 mmol/L Normal 3.5-5.1 [facility] Comment on above: Performed By: #### C MP, HSTROPN ####[facility] Moezxfafah[address] [place] [address]Dr. Chapislan Pulliam Protein [Mass/Vol] 6.3 g/dL Critically low 6.4-8.2 [facility] Comment on above: Performed By: #### C MP, HSTROPN ####[facility] [address] [place], [place] [address]Dr. Chapislan Pulliam Sodium [Moles/Vol] 137 mmol/L Normal 136-[address] [facility] Comment on above: Performed By: #### C MP, HSTROPN ####[facility] Cwtticwcfs[address] [place], [place] [address]Dr. Chapisrenu Pulliam Urea nitrogen [Mass/Vol] 15.0 mg/dL Normal 7.0-18.0 [facility] Comment on above: Performed By: #### C DAVID HSTROPN ####[facility] Wlvwjmzebc4[address] [place] [id number]. Chapisrenu Pulliam Urea nitrogen/Creatinine [Mass ratio] 22.1 mg/mg Normal [facility] Comment on above: Performed By: #### C DAVID HSTROPN ####[facility] Nyfsujamys[address] [place] [address]Dr. Garima Heraclio TROPONIN, HIGH SENSITIVITYon 09-26-2022 HSTROP 12.8 pg/mL Normal 4.0-76.1 [facility] Comment on above: Result Comment: CUT- OFF POINTS HAVE BEEN ESTABLISHED BASED ON THE FOURTH UNIVERSAL DEFINITIONS OF MYOCARDIALINFARCTION. THE UPPER REFERENCE LIMIT (URL) OF TROPONIN, DEFINED THE 99TH PERCENTILE OFcTnI DISTRIBUTION IN A REFERENCE POPULATION, HAS BEEN CONFIRMED THE DECISION THRESHOLDFOR [place] DIAGNOSIS. Performed By: #### C DAVID HSTROPN ####[facility] Zjcushbbdr[address] [place] [address]Dr. Chapisrenu Pulliam XR CHEST 1 Von 09-26-2022 XR CHEST 1 V Normal [facility] XR CHEST 1 Von 09-16-2022 XR CHEST 1 V Normal [facility] CBC AUTO DIFFon 09-15-2022 BASO # 0.0 103/ul Normal 0.0-0.1 [facility] Comment on above: Performed By: #### C BC ####[facility] Yxwjlspmqb8784 [place] [address]Dr. Garima Heraclio Basophils/100 WBC (Bld) 0.1 % Critically low 0.2-2.0 [facility] Comment on above: Performed By: #### C BC ####[facility] Oinzpeyves8[address] [place] [address]Dr. Garima Pulliam EO # 0.0 103/ul Normal 0.0-0.7 [facility] Comment on above: Performed By: #### C BC ####[facility] Sscgrdmuov0[address] [place] [address]Dr. Garima Pulliam Eosinophils/100 WBC (Bld) 0.1 % Critically low 0.9-7.0 [facility] Comment on above: Performed By: #### C BC ####[facility] Pzlkadqsjg8736 [place] [address]Dr. Garima Pulliam Erythrocyte distribution width (RBC) [Ratio] 14.1 % Normal 11.0-15.0 [facility] Comment on above: Performed By: #### C BC ####[facility] Ccrwxgfgog[address] [place], [place] [address]Dr. Garima Pulliam Hematocrit (Bld) [Volume fraction] 46.1 % Normal 42.0-54.0 [facility] Comment on above: Performed By: #### C BC ####[facility] Atyjcjshoy[address] [place], [place] [address]Dr. Garima Pulliam Hemoglobin (Bld) [Mass/Vol] 15.0 g/dL Normal 14.0-18.0 [facility] Comment on above: Performed By: #### C BC ####[facility] Jvuergtfga[address] [place], [place] [address]Dr. Garima Pulliam IG # 0.03 10e3/ul Normal 0.00-0.03 [facility] Comment on above: Performed By: #### C BC ####[facility] Jmesjslpzm[address] [place], [place] [address]Dr. Garima Pulliam IG % 0.3 % Normal 0.0-0.5 [facility] Comment on above: Performed By: #### C BC ####[facility] Tehhjnhucp[address] [place], [place] [address]Dr. Garima Pulliam LYMPH # 0.6 103/ul Critically low 1.2-3.8 The [facility] Comment on above: Performed By: #### C BC ####[facility] Ajsryqjyrw[address] [place], [place] [address]Dr. Garima Pulliam Lymphocytes/100 WBC (Bld) 5.8 % Critically low 20.5-60.0 [facility] Comment on above: Performed By: #### C BC ####[facility] Hfruufjdhm020[address] [place] [phone]. Garima Pulliam MANUAL DIFF REQ NO Normal [facility] Comment on above: Performed By: #### C BC ####[facility] Eewzlcnloq2628 [place] [phone]. Garima Pulliam MCH (RBC) [Entitic mass] 30.2 pg Normal 25.9-34.0 [facility] Comment on above: Performed By: #### C BC ####[facility] Qanpapqbvo6958 [place] [phone]. Garima Pulliam MCHC (RBC) [Mass/Vol] 32.5 g/dL Normal 29.9-35.2 [facility] Comment on above: Performed By: #### C BC ####[facility] Ahdgelmfge1492 [place] [address]Dr. Garima Pulliam MCV (RBC) [Entitic vol] 92.8 fL Normal 80.0-94.0 [facility] Comment on above: Performed By: #### C BC ####[facility] Umnmwfkmax1374 [place] [phone]. Garima Heraclio MONO # 0.3 103/ul Normal 0.3-0.8 [facility] Comment on above: Performed By: #### C BC ####[facility] Tpipuvjfur9235 [place] [phone]. Garima Heraclio Monocytes/100 WBC (Bld) 3.2 % Normal 1.7-12.0 [facility] Comment on above: Performed By: #### C BC ####[facility] Xmuhbonhtr9954 [place] [phone]. Garima Pulliam NEUT # 9.8 103/ul Critically high 1.4-6.5 The [facility] Comment on above: Performed By: #### C BC ####[facility] Fyfjcivocc6759 [place] [phone]. Chapisrenu Pulliam Neutrophils/100 WBC (Bld) 90.5 % Critically high 43.0-75.0 [facility] Comment on above: Performed By: #### C BC ####[facility] Jvklkwnbqu6123 [place] [address]Dr. Garima Pulliam Platelet mean volume (Bld) [Entitic vol] 9.4 fL Critically low 9.5-13.5 [facility] Comment on above: Performed By: #### C BC ####[facility] Wedrsvazkl9490 [place] [address]Dr. Garima Pulliam PLT 208 103/ul Normal 150-450 [facility] Comment on above: Performed By: #### C BC ####[facility] Lmgoejxsdy[address] [place], [place] [address]Dr. Garima Pulliam RBC 4.97 106/ul Normal 4.70-6.10 [facility] Comment on above: Performed By: #### C BC ####[facility] Ffefnxgvdg6125 [place] [address]Dr. Garima Pulliam WBC 10.8 103/ul Normal 4.0-11.0 [facility] Comment on above: Performed By: #### C BC ####[facility] Xztbvguswz[address] [place], [place] [address]Dr. Garima Pulliam PROF 14(COMP METB)on 022 Albumin [Mass/Vol] 4.0 g/dL Normal 3.4-5.[address] [facility] Comment on above: Performed By: #### C MP ####[facility] Mqtyojegaj4173 [place] [address]Dr. Garima Pulliam Albumin/Globulin [Mass ratio] 1.5 {ratio} Normal [facility] Comment on above: Performed By: #### C MP ####[facility] Yyazviexgg7932 [place] [address]Dr. Garima Pulliam ALP [Catalytic activity/Vol] 73 U/L Normal 46-116 [facility] Comment on above: Performed By: #### C MP ####[facility] Gpxajrgwbn8753 [place] [address]Dr. Garima Pulliam ALT [Catalytic activity/Vol] 42 U/L Normal 16-63 [facility] Comment on above: Performed By: #### C MP ####[facility] Cciiesnsym6411 [place] [address]Dr. Garima Pulliam Anion gap [Moles/Vol] 9.1 mmol/L Normal [facility] Comment on above: Performed By: #### C MP ####[facility] Fqpxucdfci[address] [place], [place] [address]Dr. Garima Pulliam AST [Catalytic activity/Vol] 28 U/L Normal 15-37 [facility] Comment on above: Performed By: #### C MP ####[facility] Icopufgtys[address] [place], [place] [address]Dr. Garima Heraclio Bilirubin [Mass/Vol] 0.6 mg/dL Normal 0.2-1.0 [facility] Comment on above: Performed By: #### C MP ####[facility] Fyfylrdfyl[address] [place], [place] [address]Dr. Garima Heraclio Calcium [Mass/Vol] 8.6 mg/dL Normal 8.5-10.1 [facility] Comment on above: Performed By: #### C MP ####[facility] Opipioygsq424[address] [place], [place] [address]Dr. Chapisrenu Pulliam Chloride [Moles/Vol] 105 mmol/L Normal 98-107 [facility] Comment on above: Performed By: #### C MP ####[facility] Xehgovcrip9[address] [place], [place] [address]Dr. Garima Heraclio CO2 [Moles/Vol] 28.5 mmol/L Normal 21.0-32.0 [facility] Comment on above: Performed By: #### C MP ####[facility] Q[address]qyvvtvs[address] [place], [place] [address]Dr. Garima Pulliam Creatinine [Mass/Vol] 0.78 mg/dL Normal 0.70-1.30 [facility] Comment on above: Performed By: #### C MP ####[facility] Gnafszwhsh[address] [place], [place] [address]Dr. Chapisrenu Heraclio EGFR-AF MONGOLIAN >60 Normal >=60 [facility] Comment on above: Performed By: #### C MP ####[facility] Sq[address]jstsyj[address] [place], [place] [address]Dr. Garima Pulliam EGFR-NON AF MONGOLIAN >60 Normal >=60 [facility] Comment on above: Performed By: #### C MP ####[facility] Gdtjpfsabn7645 [place] [address]Dr. Garima Pulliam Globulin (S) [Mass/Vol] 2.7 g/dL Normal [facility] Comment on above: Performed By: #### C MP ####[facility] Mjtnkqxtqq9114 [place] [address]Dr. Garima Pulliam Glucose [Mass/Vol] 220 mg/dL Critically high 74-106 [facility] Comment on above: Performed By: #### C MP ####[facility] Eawfrygwyf8899 [place] [address]Dr. Garima Pulliam Potassium [Moles/Vol] 3.6 mmol/L Normal 3.5-5.1 [facility] Comment on above: Performed By: #### C MP ####[facility] Foezrvwoon[address] [place], [place] [address]Dr. Garima Pulliam Protein [Mass/Vol] 6.7 g/dL Normal 6.4-8.2 [facility] Comment on above: Performed By: #### C MP ####[facility] Hkssdmtzsg[address] [place], [place] [address]Dr. Garima Pulliam Sodium [Moles/Vol] 139 mmol/L Normal 136-[address] [facility] Comment on above: Performed By: #### C MP ####[facility] Mjxtkxjvtr[address] [place], [place] [address]Dr. Garima Pulliam Urea nitrogen [Mass/Vol] 11.0 mg/dL Normal 7.0-18.0 [facility] Comment on above: Performed By: #### C MP ####[facility] Pqqyflivgz[address] [place], [place] [address]Dr. Garima Pulliam Urea nitrogen/Creatinine [Mass ratio] 14.1 mg/mg Normal [facility] Comment on above: Performed By: #### C MP ####[facility] Dtyrlyjsdt[address] [place], [place] [address]Dr. Garima Pulliam CARDIAC NASH 3-6on 2 CK [Catalytic activity/Vol] 240 U/L Normal 39-308 [facility] Comment on above: Performed By: #### C MREP ####[facility] Cugznxxuri7971 [place] [address]Dr. Garima Pulliam CK.MB [Mass/Vol] 10.38 ng/mL Critically high <=3.60 [facility] Comment on above: Performed By: #### C MREP ####[facility] Jfxpmgkntu6944 [place] [address]Dr. Garima Pulliam HSTROP 18.5 pg/mL Normal 4.0-76.1 [facility] Comment on above: Result Comment: CUT- OFF POINTS HAVE BEEN ESTABLISHED BASED ON THE FOURTH UNIVERSAL DEFINITIONS OF MYOCARDIALINFARCTION. THE UPPER REFERENCE LIMIT (URL) OF TROPONIN, DEFINED THE 99TH PERCENTILE OFcTnI DISTRIBUTION IN A REFERENCE POPULATION, HAS BEEN CONFIRMED THE DECISION THRESHOLDFOR [place] DIAGNOSIS. Performed By: #### C MREP ####[facility] Tqtnvobhjo0542 [place] [address]Dr. Garima Pulliam CK [Catalytic activity/Vol] 257 U/L Normal 39-308 [facility] Comment on above: Performed By: #### C MREP ####[facility] Cvbahlpsgh[address] [place], [place] [address]Dr. Garima Pulliam CK.MB [Mass/Vol] 9.89 ng/mL Critically high <=3.60 [facility] Comment on above: Performed By: #### C MREP ####[facility] Qinnqtbqva[address] [place], [place] [address]Dr. Garima Pulliam HSTROP 16.9 pg/mL Normal 4.0-76.1 [facility] Comment on above: Result Comment: CUT- OFF POINTS HAVE BEEN ESTABLISHED BASED ON THE FOURTH UNIVERSAL DEFINITIONS OF MYOCARDIALINFARCTION. THE UPPER REFERENCE LIMIT (URL) OF TROPONIN, DEFINED THE 99TH PERCENTILE OFcTnI DISTRIBUTION IN A REFERENCE POPULATION, HAS BEEN CONFIRMED THE DECISION THRESHOLDFOR [place] DIAGNOSIS. Performed By: #### C MREP ####[facility] [address]ktmlttrxt[address] [place], [place] [address]Dr. Garima Pulliam CBC AUTO DIFFon 09-13-2022 BASO # 0.0 103/ul Normal 0.0-0.1 [facility] Comment on above: Performed By: #### C BC ####[facility] Leeumyojfk0492 [place] [phone]. Garima Pulliam Basophils/100 WBC (Bld) 0.1 % Critically low 0.2-2.0 [facility] Comment on above: Performed By: #### C BC ####[facility] Vlqdqnbzwj8949 [place] [address]Dr. Garima Pulliam EO # 0.0 103/ul Normal 0.0-0.7 [facility] Comment on above: Performed By: #### C BC ####[facility] Mvteurnvay[address] [place], [place] [address]Dr. Garima Pulliam Eosinophils/100 WBC (Bld) 0.0 % Critically low 0.9-7.0 [facility] Comment on above: Performed By: #### C BC ####[facility] Ylwsdkciwq[address] [place], [place] [address]Dr. Garima Pulliam Erythrocyte distribution width (RBC) [Ratio] 13.6 % Normal 11.0-15.0 [facility] Comment on above: Performed By: #### C BC ####[facility] Fouxjfkpkf8164 [place] [phone]. Graima Pulliam Hematocrit (Bld) [Volume fraction] 48.2 % Normal 42.0-54.0 [facility] Comment on above: Performed By: #### C BC ####[facility] Euzcd[address]aw[address] [place], [place] [address]Dr. Garima Pulliam Hemoglobin (Bld) [Mass/Vol] 16.0 g/dL Normal 14.0-18.0 [facility] Comment on above: Performed By: #### C BC ####[facility] Cyalcjdhlu8815 [place] [phone]. Garima Pulliam IG # 0.02 10e3/ul Normal 0.00-0.03 [facility] Comment on above: Performed By: #### C BC ####[facility] Teytpkluko1454 [place] [phone]. Garima Pulliam IG % 0.3 % Normal 0.0-0.5 [facility] Comment on above: Performed By: #### C BC ####[facility] Qjxkteaunr7621 [place] [address]Dr. Garima Heraclio LYMPH # 0.5 103/ul Critically low 1.2-3.8 The [facility] Comment on above: Performed By: #### C BC ####[facility] Oplkydxhhk2991 [place] [address]Dr. Garima Heraclio Lymphocytes/100 WBC (Bld) 7.7 % Critically low 20.5-60.0 [facility] Comment on above: Performed By: #### C BC ####[facility] Ffxvynukpb[address] [place], [place] [address]Dr. Chapisrenu Pulliam MANUAL DIFF REQ NO Normal [facility] Comment on above: Performed By: #### C BC ####[facility] Prlklhdqrx[address] [place], [place] [address]Dr. Garima Heraclio MCH (RBC) [Entitic mass] 30.6 pg Normal 25.9-34.0 [facility] Comment on above: Performed By: #### C BC ####[facility] [address]ewtliynx[address] [place], [place] [address]Dr. Garima Pulliam MCHC (RBC) [Mass/Vol] 33.2 g/dL Normal 29.9-35.2 [facility] Comment on above: Performed By: #### C BC ####[facility] Cmpuhcbikd5538 [place] [address]Dr. Garima Heraclio MCV (RBC) [Entitic vol] 92.2 fL Normal 80.0-94.0 [facility] Comment on above: Performed By: #### C BC ####[facility] Wepnaloaqi[address] [place], [place] [address]Dr. Garima Pulliam MONO # 0.0 103/ul Critically low 0.3-0.8 The [facility] Comment on above: Performed By: #### C BC ####[facility] Egwuwukqvc2528 [place] [address]Dr. Garima Pulliam Monocytes/100 WBC (Bld) 0.4 % Critically low 1.7-12.0 [facility] Comment on above: Performed By: #### C BC ####[facility] Spshmwzaim3233 [place] [address]Dr. Garima Pulliam NEUT # 6.2 103/ul Normal 1.4-6.5 [facility] Comment on above: Performed By: #### C BC ####[facility] Yayxjqhhba8669 [place] [address]Dr. Garima Pulliam Neutrophils/100 WBC (Bld) 91.5 % Critically high 43.0-75.0 [facility] Comment on above: Performed By: #### C BC ####[facility] Hbmglugrzk3493 [place] [address]Dr. Garima Pulliam Platelet mean volume (Bld) [Entitic vol] 8.7 fL Critically low 9.5-13.5 [facility] Comment on above: Performed By: #### C BC ####[facility] Fhvwhleedz9276 [place] [address]Dr. Garima Pulliam PLT 179 103/ul Normal 150-450 [facility] Comment on above: Performed By: #### C BC ####[facility] Ehrkcjoqts5095 [place] [address]Dr. Garima Pulliam RBC 5.23 106/ul Normal 4.70-6.10 [facility] Comment on above: Performed By: #### C BC ####[facility] Trtnsgaorb5246 [place] [address]Dr. Garima Pulliam WBC 6.7 103/ul Normal 4.0-11.0 [facility] Comment on above: Performed By: #### C BC ####[facility] Lbaexyspud8[address] [place] [address]Dr. Gariam Pulliam PROF CHEM 8 (BAS METB)on Anion gap [Moles/Vol] 12.1 mmol/L Normal Th [facility] Comment on above: Performed By: #### B MP ####[facility] Wwfopupohb2538 [place] [id number]. Garima Pulliam Calcium [Mass/Vol] 8.7 mg/dL Normal 8.5-10.1 [facility] Comment on above: Performed By: #### B MP ####[facility] Drntscunyo8887 [place] [phone]. Garima Pulliam Chloride [Moles/Vol] 105 mmol/L Normal 98-107 [facility] Comment on above: Performed By: #### B MP ####[facility] Kogueagtxu8519 [place] [address]Dr. Garima Pulliam CO2 [Moles/Vol] 25.5 mmol/L Normal 21.0-32.0 [facility] Comment on above: Performed By: #### B MP ####[facility] Obxacoxcjq4801 [place] [address]Dr. Garima Pulliam Creatinine [Mass/Vol] 0.63 mg/dL Critically low 0.70-1.30 [facility] Comment on above: Performed By: #### B MP ####[facility] Giyeibnumi7599 [place] [address]Dr. Garima Pulliam EGFR-AF MONGOLIAN >60 Normal >=60 [facility] Comment on above: Performed By: #### B MP ####[facility] Vwwmjcfwlq0526 [place] [address]Dr. Garima Pulliam EGFR-NON AF MONGOLIAN >60 Normal >=60 [facility] Comment on above: Performed By: #### B MP ####[facility] Dwaxlhewfr0746 [place] [address]Dr. Garima Pulliam Glucose [Mass/Vol] 162 mg/dL Critically high 74-106 [facility] Comment on above: Performed By: #### B MP ####[facility] Rbtmkzjjoh[address] [place], [place] [address]Dr. Garima Pulliam Potassium [Moles/Vol] 3.6 mmol/L Normal 3.5-5.1 [facility] Comment on above: Performed By: #### B MP ####[facility] Kl[address]jvinyr[address] [place], [place] [address]Dr. Garima Pulliam Sodium [Moles/Vol] 139 mmol/L Normal 136-145 [facility] Comment on above: Performed By: #### B DAVID ####[facility] Ehbckgzbur4079 [place] [address]Dr. Garima Pulliam Urea nitrogen [Mass/Vol] 9.0 mg/dL Normal 7.0-18.0 [facility] Comment on above: Performed By: #### B DAVID ####[facility] Csmgvkkcpt5571 [place] [address]Dr. Garima Pulliam Urea nitrogen/Creatinine [Mass ratio] 14.3 mg/mg Normal [facility] Comment on above: Performed By: #### B DAVID ####[facility] Kzgvmyhetb[address] [place] [address]Dr. Chapisrenu Pulliam CARDIAC NASH ADMITon 09-12- 022 CK [Catalytic activity/Vol] 304 U/L Normal 39-308 [facility] Comment on above: Performed By: #### B NANCY HERNANDEZ ####[facility] Zshteamclx3886 [place] [address]Dr. Chapisrenu Pulliam CK.MB [Mass/Vol] 11.81 ng/mL Critically high <=3.60 Th [facility] Comment on above: Performed By: #### B NANCY HERNANDEZ ####[facility] Eorqdlolqw1912 [place] [address]Dr. Garima Heraclio HSTROP 13.3 pg/mL Normal 4.0-76.1 [facility] Comment on above: Result Comment: CUT- OFF POINTS HAVE BEEN ESTABLISHED BASED ON THE FOURTH UNIVERSAL DEFINITIONS OF MYOCARDIALINFARCTION. THE UPPER REFERENCE LIMIT (URL) OF TROPONIN, DEFINED THE 99TH PERCENTILE OFcTnI DISTRIBUTION IN A REFERENCE POPULATION, HAS BEEN CONFIRMED THE DECISION THRESHOLDFOR [place] DIAGNOSIS. Performed By: #### NANCY Larkin MP ####[facility] Ahydyiocse68[address] [place] [address]Dr. Garima Pulliam DORIS 133 ng/mL Critically high 16-96 [facility] Comment on above: Performed By: #### B NANCY HERNANDEZ ####[facility] Fjqaahuyib2523 [place] [address]Dr. Garima Pulliam CBC AUTO DIFFon 09-12-2022 BASO # 0.0 103/ul Normal 0.0-0.1 [facility] Comment on above: Performed By: #### C BC ####[facility] [address]qtgrces[address] [place], [place] [address]Dr. Garima Heraclio Basophils/100 WBC (Bld) 0.2 % Normal 0.2-2.0 [facility] Comment on above: Performed By: #### C BC ####[facility] [address]qfofna[address] [place], [place] [address]Dr. Chapisrenu Pulliam EO # 0.2 103/ul Normal 0.0-0.7 [facility] Comment on above: Performed By: #### C BC ####[facility] [address]leqelxqo[address] [place], [place] [address]Dr. Chapisrenu Pulliam Eosinophils/100 WBC (Bld) 1.3 % Normal 0.9-7.0 [facility] Comment on above: Performed By: #### C BC ####[facility] [address]wqjgtd[address] [place], [place] [address]Dr. Garima Pulliam Erythrocyte distribution width (RBC) [Ratio] 13.7 % Normal 11.0-15.0 [facility] Comment on above: Performed By: #### C BC ####[facility] Kywtyanqbd[address] [place], [place] [address]Dr. Garima Pulliam Hematocrit (Bld) [Volume fraction] 46.4 % Normal 42.0-54.0 [facility] Comment on above: Performed By: #### C BC ####[facility] [address]fcnhczv[address] [place], [place] [address]Dr. Garima Pulliam Hemoglobin (Bld) [Mass/Vol] 15.7 g/dL Normal 14.0-18.0 [facility] Comment on above: Performed By: #### C BC ####[facility] Dmpljefcov[address] [place], [place] [address]Dr. Garima Pulliam IG # 0.04 10e3/ul Critically high 0.00-0.03 [facility] Comment on above: Performed By: #### C BC ####[facility] Dbskdlqour3208 [place] [id number]. Garima Pulliam IG % 0.3 % Normal 0.0-0.5 [facility] Comment on above: Performed By: #### C BC ####[facility] Ckzreeqtca2171 [place] [id number]. Garima Pulliam LYMPH # 1.7 103/ul Normal 1.2-3.8 [facility] Comment on above: Performed By: #### C BC ####[facility] Deupaputve2024 [place] [phone]. Graima Pulliam Lymphocytes/100 WBC (Bld) 11.5 % Critically low 20.5-60.0 [facility] Comment on above: Performed By: #### C BC ####[facility] Gnpmttnktf49[address] [place] [address]Dr. Garima Pulliam MANUAL DIFF REQ NO Normal [facility] Comment on above: Performed By: #### C BC ####[facility] Eradxnoebb7281 [place] [phone]. Garima Pulliam MCH (RBC) [Entitic mass] 31.0 pg Normal 25.9-34.0 [facility] Comment on above: Performed By: #### C BC ####[facility] [facility] [address] [place] [id number]. Garima Pulliam MCHC (RBC) [Mass/Vol] 33.8 g/dL Normal 29.9-35.2 [facility] Comment on above: Performed By: #### C BC ####[facility] [address] [place], [place] [address]Dr. Garima Pulliam MCV (RBC) [Entitic vol] 91.7 fL Normal 80.0-94.0 [facility] Comment on above: Performed By: #### C BC ####[facility] [address] [place] [id number]. Garima Pulliam MONO # 0.8 103/ul Normal 0.3-0.8 [facility] Comment on above: Performed By: #### C BC ####[facility] [address] [place] [id number]. Garima Pulliam Monocytes/100 WBC (Bld) 5.2 % Normal 1.7-12.0 [facility] Comment on above: Performed By: #### C BC ####[facility] [address] [place] [id number]. Garima Pulliam NEUT # 11.7 103/ul Critically high 1.4-6.5 [facility] Comment on above: Performed By: #### C BC ####[facility] [address] [place] [id number]. Garima Pulliam Neutrophils/100 WBC (Bld) 81.5 % Critically high 43.0-75.0 [facility] Comment on above: Performed By: #### C BC ####[facility] [address] [place] [address]Dr. Garima Pulliam Platelet mean volume (Bld) [Entitic vol] 8.6 fL Critically low 9.5-13.5 [facility] Comment on above: Performed By: #### C BC ####[facility] [address] [place], [place] [address]Dr. Garima Pulliam PLT 191 103/ul Normal 150-450 [facility] Comment on above: Performed By: #### C BC ####[facility] [address] [place], [place] [address]Dr. Garima Pulliam RBC 5.06 106/ul Normal 4.70-6.10 [facility] Comment on above: Performed By: #### C BC ####[facility] [address] [place], [place] [address]Dr. Garima Pulliam WBC 14.4 103/ul Critically high 4.0-11.0 [facility] Comment on above: Performed By: #### C BC ####[facility] [address] [place], [place] [address]Dr. Garima Pulliam [facility] SARS-CoV-2 (COVID-19) RNA MARIE+probe Ql (Unsp spec) Not detected Normal NOT DETECTED [facility] Comment on above: Result Comment: When [...] for this test is supported by the [place] of Health and Human Service's declaration that [...] be used). Performed By: #### C VDTBH ####[facility] [address] [place], [place] [address]Dr. Garima Pulliam LACTATE/LACTIC ACIDon 2021 Lactate [Moles/Vol] 1.0 mmol/L Normal 0.4-1.9 [facility] Comment on above: Performed By: #### L ACT ####[facility] [address] [place], [place] [address]Dr. Garima Pulliam PROF CHEM 8 (BAS METB)on Anion gap [Moles/Vol] 11.6 mmol/L Normal [facility] Comment on above: Performed By: #### B NANCY HERNANDEZ ####[facility] [address] [place] [address]Dr. Garima Pulliam Calcium [Mass/Vol] 9.2 mg/dL Normal 8.5-10.[address] [facility] Comment on above: Performed By: #### B NANCY HERNANDEZ ####[facility] [address] [place] [address]Dr. Garima Pulliam Chloride [Moles/Vol] 105 mmol/L Normal 98-107 [facility] Comment on above: Performed By: #### B MP, CMADM ####[facility] [address] [place] [id number]. Garima Pulliam CO2 [Moles/Vol] 25.9 mmol/L Normal 21.0-32.0 [facility] Comment on above: Performed By: #### B DAVID, CMADM ####[facility] [address] [place] [address]Dr. Garima Pulliam Creatinine [Mass/Vol] 0.72 mg/dL Normal 0.70-1.30 [facility] Comment on above: Performed By: #### B DAVID, CMADM ####[facility] [address] [place] [id number]. Garima Pulliam EGFR-AF MONGOLIAN >60 Normal >=60 [facility] Comment on above: Performed By: #### B DAVID, CMADM ####[facility] [address] [place] [address]Dr. Chapisrenu Pulliam EGFR-NON AF MONGOLIAN >60 Normal >=60 [facility] Comment on above: Performed By: #### B DAVID, CMADM ####[facility] [address] [place] [address]Dr. Garima Pulliam Glucose [Mass/Vol] 111 mg/dL Critically high 74-106 [facility] Comment on above: Performed By: #### B DAVID, CMADM ####[facility] [address] [place] [address]Dr. Chapisrenu Pulliam Potassium [Moles/Vol] 3.5 mmol/L Normal 3.5-5.1 [facility] Comment on above: Performed By: #### B DAVID, CMADM ####[facility] [address] [place] [address]Dr. Chapisrenu Pulliam Sodium [Moles/Vol] 139 mmol/L Normal 136-[address] [facility] Comment on above: Performed By: #### B DAVID, CMADM ####[facility] [address] [place] [address]Dr. Garima Pulliam Urea nitrogen [Mass/Vol] 7.0 mg/dL Normal 7.0-18.0 [facility] Comment on above: Performed By: #### B DAVID, CMADM ####[facility] [address] [place], [place] [address]Wh. Garima Pulliam Urea nitrogen/Creatinine [Mass ratio] 9.7 mg/mg Normal [facility] Comment on above: Performed By: #### B MP, CMADM ####[facility] [address] [place], [place] [address]Rm. Garima Pulliam XR CHEST 1 Von 09-12-2022 XR CHEST 1 V Normal [facility] Encounters Encounter Date Encounter Type Care [...] Facility:H1 Payers Date Payer Category Payer Unknown [id number] 1960 Medicaid [id number] 1960 Unknown [id number] 1959 Unknown [id number] 1955 Unknown [id number] 2.16.84 0.1.328325.3.579.2.593 1954 Unknown [id number] 2.16.84 0.1.203875.3.579.2.593 1954 Unknown [id number] 2.16.84 0.1.387003.3.579.2.593 1954 Unknown [id number] 2.16.84 0.1.559658.3.579.2.593 1954 Unknown [id number] 2.16.84 0.1.832824.3.579.2.593 1954 Unknown [id number] 2.16.84 0.1.435802.3.579.2.593 1954 Unknown [id number] 2.16.84 0.1.309368.3.579.2.593 1954 Unknown [id number] 2.16.84 0.1.657769.3.579.2.593 1954 Unknown [id number] 2.16.84 0.1.425565.3.579.2.593 1954 Unknown [id number] 2.16.84 0.1.830096.3.579.2.593 1954 Unknown [id number] 2.16.84 0.1.271958.3.579.2.593 1954 Unknown [id number] 2.16.84 0.1.647845.3.579.2.593 1954 Unknown [id number] 2.16.84 0.1.050132.3.579.2.593 1954 Unknown [id number] 2.16.84 0.1.450866.3.579.2.593 1954 Unknown [id number] 2.16.84 0.1.972665.3.579.2.593 1954 Unknown [id number] 2.16.84 0.1.724708.3.579.2.593 1954 Unknown [id number] 2.16.84 0.1.277849.3.579.2.593 1954 Unknown [id number] 2.16.84 0.1.685420.3.579.2.593 1954 Unknown [id number] 2.16.84 0.1.034023.3.579.2.593 1954 Unknown [id number] 2.16.84 0.1.459009.3.579.2.593 Summary Purpose Family History No Family History Records Found Advance Directives No Advanced Directives Records Found Additional Source Comments (unrecognized sect ion and content) No Status Records Found INFORMATION SOURCE (unrecogn ized section and content) DATE CREATED AUTHOR 04/08/2023 [facility] FOR RECORDS PERTAINING TO PATIENTS [...] BE BASED ON THE PRIMARY CLINICAL RECORDS. [facility]. provides no warranty or guarantee of the accuracy or completeness of information in this document.
[2024-04-16 16:47] VITALS: BP 185/88; PULSE 55; TEMP 36.8; O2SAT 95; BMI 25.1
[2024-04-16 16:53] VITALS: PULSE 54
--- NOTE | 2024-04-16 16:55 | ED.GENADUL1 ---
HPI HPI - General Adult General Chief complaint: Shortness of Breath/Dyspnea Stated complaint: SHORTNESS OF BREATH Time Seen by Provider: 04/16/24 16:55 Source: patient Mode of arrival: Wheelchair History of Present Illness HPI narrative: The patient is coming to the ER with shortness of breath for the last 2 weeks, the patient mentioned that he does not have any new cough, no chest pain, patient initially mentioned that he does not have his medication but when asked about the breathing treatment he mentioned that the breathing treatment that he gets in the ED is better than the 1 that he have at home No fevers or chills no nausea no vomiting no other complaints Related Data Home Medications ?Medication ?Instructions ?Recorded ?Confirmed albuterol sulfate 2.5 mg/3 mL 2.5 mg inhalation Q6H PRN 11/02/23 04/16/24 (0.083 %) solution for nebulization shortness of breath or wheezing albuterol sulfate 90 mcg/actuation 2 inh inhalation Q6H PRN shortness 03/13/24 04/16/24 aerosol inhaler of breath or wheezing Previous Rx's ?Medication ?Instructions ?Recorded losartan 100 mg tablet 100 mg PO DAILY #30 tabs 12/27/23 azithromycin 250 mg tablet See Rx Instructions PO .COMPLEX #6 04/16/24 (Zithromax Z-Luis) tabs prednisone 20 mg tablet 40 mg (2 x 20 mg) PO DAILY 5 days 04/16/24 #10 tabs Allergies Allergy/AdvReac Type Severity Reaction Status Date / Time No Known Drug Allergies Allergy Verified 04/16/24 16:47 Opioid HPI Opioid Management Most Recent Opioid Data: Last ORT Total Score 0 01/29/24 06:36 Last ORT Risk Category Low Risk 01/29/24 06:36 Review of Systems ROS Status of ROS 10 or more systems reviewed and unremarkable except as noted in history and below [facility] Medical History (Updated 04/16/24 @ 18:40 by Mariam Wan MD) Hypokalemia ?E87.6 - Hypokalemia (ICD-10) New onset type 2 diabetes mellitus ?E11.9 - Type 2 diabetes mellitus without complications (ICD-10) Lower extremity edema ?R60.0 - Localized edema (ICD-10) Edema ?R60.9 - Edema, unspecified (ICD-10) Acute hyperglycemia ?R73.9 - Hyperglycemia, unspecified (ICD-10) Tobacco abuse ?Z72.0 - Tobacco use (ICD-10) HTN (hypertension) ?I10 - Essential (primary) hypertension (ICD-10) Community acquired pneumonia ?J18.9 - Pneumonia, unspecified organism (ICD-10) Chronic obstructive pulmonary disease ?J44.9 - Chronic obstructive pulmonary disease, unspecified (ICD-10) Acute exacerbation of chronic obstructive pulmonary disease (COPD) ?J44.1 - Chronic obstructive pulmonary disease with (acute) exacerbation (ICD-10) RLL pneumonia ?J18.9 - Pneumonia, unspecified organism (ICD-10) COPD (chronic obstructive pulmonary disease) ?J44.9 - Chronic obstructive pulmonary disease, unspecified (ICD-10) Surgical History (Updated 01/29/24 @ 06:45 by Latonia Martin RN) Hx of tonsillectomy ?Z90.89 - Acquired absence of other organs (ICD-10) Family History (Updated 12/25/23 @ 21:28 by Kym Ordaz) Mother Family history of cancer Family history of hypertension Father Family history of cancer Social History Within the past year, how often did you have a drink containing alcohol: 4 or more times a week Within the past year, how many standard drinks containing alcohol did you have on a typical day: 3 or 4 Within the past year, how often did you have six or more drinks on one occasion: less than monthly Total score: 3 Score interpretation: A score of 4 or more indicates drinking is likely to affect patient's safety. Smoking status: Current every day smoker Non-prescribed substance use: cannabis (any form) Previous occupational history: retired Highest level of school completed/degree received: high school graduate Are you now , , , , never or living with a partner: In a typical week, how many times do you talk on the telephone with family, friends, or neighbors: twice per week How often do you get together with friends or relatives: once per week How often do you attend adventism or scientology services: never Do you belong to any clubs or organizations such as adventism groups unions, fraternal or athletic groups, or school groups: no Total score: 1 Score interpretation: A score of less than or equal to 1 indicates the most socially isolated. Little interest or pleasure in doing things: several days Feeling down, depressed, or hopeless: not at all Feel stressed/tense/nervous/anxious/difficulty sleeping: not at all Do you think of yourself as: straight/heterosexual Gender Identity: male Exam Narrative Exam Narrative: Nurses notes and vital signs reviewed and patient is not hypoxic. General: Well-appearing and in no apparent distress. Skin: Warm, dry, no pallor noted. No rash. Head: Normocephalic, atraumatic. Neck: Supple, non-tender. Eye: Pupils are equal, round and EOMI. No scleral icterus. Ears, Nose, Mouth, and Throat: TM are clear, no nasal mucosal hypertrophy. Oral mucosa is moist, no posterior oropharynx erythema, uvula is mid-line Cardiovascular: Regular Rate and Rhythm without murmur, gallop or rub. Respiratory: No accessory muscle use or respiratory distress. Lungs distant breathing sound bilaterally Chest Wall: no tenderness Back: No midline thoracic or lumbar vertebral tenderness. No CVA tenderness Musculoskeletal: normal ROM, no calf or popliteal tenderness, no lower extremity edema/swelling GI: Abdomen is soft, non-distended. Normal bowel sounds. No masses appreciated. No tenderness to palpation. No rebound, guarding, or rigidity noted. Neurological: A&O x4. No cranial nerve dysfunction observed. No truncal ataxia. Moves all extremities. Sensation intact. Psychiatric: Cooperative and interactive. Normal mood and affect. Constitutional Vital Signs, click to edit/add: Last Vital Signs Temp 97.2 F L 04/16/24 19:05 Pulse 57 L 04/16/24 19:05 Resp 22 H 04/16/24 19:05 BP 189/81 H 04/16/24 19:05 Pulse Ox 93 L 04/16/24 19:05 O2 Del Method Room Air 04/16/24 19:05 Course Vital Signs Vital signs: Vital Signs Temperature 98.2 F 04/16/24 16:47 Pulse Rate 55 L 04/16/24 16:47 Respiratory Rate 20 04/16/24 16:47 Blood Pressure 185/88 H 04/16/24 16:47 Pulse Oximetry 95 04/16/24 16:47 Oxygen Delivery Method Room Air 04/16/24 16:47 Temperature 97.2 F L 04/16/24 19:05 Pulse Rate 57 L 04/16/24 19:05 Respiratory Rate 22 H 04/16/24 19:05 Blood Pressure 189/81 H 04/16/24 19:05 Pulse Oximetry 93 L 04/16/24 19:05 Oxygen Delivery Method Room Air 04/16/24 19:05 Medical Decision Making MDM Narrative Medical decision making narrative: The patient EKG in the ER showing sinus rhythm no ST elevation or depression and no acute changes CBC and chemistry showed no acute significant pathology and the chest x-ray showed no acute pathology as well The patient was provided with a breathing treatment after which she was feeling much better he also was provided with Solu-Medrol Right now the patient was provided with a new mask for his breathing machine at home and he also was provided with prednisone for the next 5 days and he was offered refill on his medication but he mentioned that he had with the breathing treatment at home The patient was feeling much better and ready to go home when he got treated in the ER The patient is to follow up with primary care physician in next 2-3 days or to return to the emergency department should any of the signs or symptoms worsen or new symptoms develop. The patient agrees with the following Diagnosis and Treatment plan and the patient will be discharged home. Lab Data Labs: Lab Results 04/16/24 Range/Units 17:09 WBC 7.8 (4.0-11.0) 10^3/uL RBC 4.68 L (4.70-6.10) 10^6/uL Hgb 14.1 (14.0-18.0) g/dL Hct 41.6 L (42.0-54.0) % MCV 88.9 (80.0-94.0) fL MCH 30.1 (25.9-34.0) pg MCHC 33.9 (29.9-35.2) g/dL RDW 13.2 (11.0-15.0) % Plt Count 191 (150-450) 10^3/uL MPV 9.1 L (9.5-13.5) fL Neut % (Auto) 65.2 (43.0-75.0) % Lymph % (Auto) 24.5 (20.5-60.0) % [place] % (Auto) 7.9 (1.7-12.0) % Eos % (Auto) 2.0 (0.9-7.0) % Baso % (Auto) 0.3 (0.2-2.0) % Neut # (Auto) 5.1 (1.4-6.5) 10^3/uL Lymph # (Auto) 1.9 (1.2-3.8) 10^3/uL [place] # (Auto) 0.6 (0.3-0.8) 10^3/uL Eos # (Auto) 0.2 (0.0-0.7) 10^3/uL Baso # (Auto) 0.0 (0.0-0.1) 10^3/uL Abs Immat Gran (auto) 0.01 (0.00-0.03) 10^3/uL Imm/Tot Granulo (auto) 0.1 (0.0-0.5) % Sodium 139 (136-145) mmol/L Potassium 3.2 L (3.5-5.1) mmol/L Chloride 103 (98-107) mmol/L Carbon Dioxide 29.2 (21.0-32.0) mmol/L Anion Gap 10.0 BUN 5.0 L (7.0-18.0) mg/dL Creatinine 0.63 L (0.70-1.30) mg/dL Est GFR ( Amer) >60 (>=60) Est GFR (Non-Af Amer) >60 (>=60) BUN/Creatinine Ratio 7.9 Glucose 244 H (74-106) mg/dL Calcium 8.9 (8.5-10.1) mg/dL Total Bilirubin 0.5 (0.2-1.0) mg/dL AST 18 (15-37) U/L ALT 29 (16-63) U/L Alkaline Phosphatase 83 (46-116) U/L Troponin I High Sens 15.1 (4.0-76.1) pg/mL Total Protein 5.9 L (6.4-8.2) g/dL Albumin 3.4 (3.4-5.0) g/dL Globulin 2.5 g/dL Albumin/Globulin Ratio 1.4 Discharge Plan Discharge Stand Alone Forms: Portal Instructions Chief Complaint: Shortness of Breath/Dyspnea Clinical Impression: COPD (chronic obstructive pulmonary disease) Patient Disposition: Home, Self-Care Time of Disposition Decision: 18:40 Prescriptions / Home Meds: New azithromycin [Zithromax Z-Luis] 250 mg tablet See Rx Instructions .ROUTE .COMPLEX Qty: 6 0RF Rx Instructions: For 250 mg dose pack: take 500 mg today (day 1), then 250 mg for 4 days (days 2-5) prednisone 20 mg tablet 40 mg PO DAILY 5 Days Qty: 10 0RF No Action albuterol sulfate 2.5 mg /3 mL (0.083 %) solution for nebulization 2.5 mg inhalation Q6H PRN (Reason: shortness of breath or wheezing) losartan 100 mg tablet 100 mg PO DAILY Qty: 30 11RF albuterol sulfate 90 mcg/actuation HFA aerosol inhaler 2 inh inhalation Q6H PRN (Reason: shortness of breath or wheezing) Print Language: Swiss Instructions: COPD (Chronic Obstructive Pulmonary Disease) (DC) Referrals: SERG DUENAS [Primary Care Provider] - 1 week Discharge Date/Time: 04/16/24 19:10
--- NOTE | 2024-04-16 16:56 | XR_ITS ---
The [address] [address] Patient Name: CONSTANZA BARRETO MRN: [id number] date: 1955 Sex: M Assigned Patient Location: ER Current Patient Location: ER Accession/Order Number: [id number] Exam Date: 04/16/2024 16:50 Report Date: 04/16/2024 18:04 At the request of: MITCH CASTRO Procedure: XR chest 1V EXAM: XR chest 1V HISTORY: sob COMPARISON: 03/21/2024 TECHNIQUE: Chest X-ray AP, 1 view FINDINGS: Support devices: None. Lungs/pleura: No consolidation, effusion, or pneumothorax. Heart and mediastinum: Normal contours. Bones: No acute abnormality identified. XR/XR chest 1V Impression: No radiographic evidence of acute cardiopulmonary process. Electronically authenticated by: HOME BEAULIEU Date: 04/16/2024 18:04
--- NOTE | 2024-04-16 16:56 | ECG_ITS ---
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
[2024-04-16 17:26] LABS: Basophils Percent Auto 0.3 % (0.2-2.0); Eosinophils Absolute Auto 0.2 10^3/uL (0.0-0.7); Hematocrit 41.6 % (42.0-54.0); Hemoglobin 14.1 g/dL (14.0-18.0); Immature Granulocytes Abs Auto 0.01 10^3/uL (0.00-0.03); Immature Granulocytes Pct Auto 0.1 % (0.0-0.5); Lymphocytes Absolute Auto 1.9 10^3/uL (1.2-3.8); Lymphocytes Percent Auto 24.5 % (20.5-60.0); Mean Corpuscular HGB Conc 33.9 g/dL (29.9-35.2); Mean Corpuscular Hemoglobin 30.1 pg (25.9-34.0); Mean Corpuscular Volume 88.9 fL (80.0-94.0); Mean Platelet Volume 9.1 fL (9.5-13.5); Monocytes Absolute Auto 0.6 10^3/uL (0.3-0.8); Monocytes Percent Auto 7.9 % (1.7-12.0); Neutrophils Absolute Auto 5.1 10^3/uL (1.4-6.5); Neutrophils Percent Auto 65.2 % (43.0-75.0); Platelet Count 191 10^3/uL (150-450); Red Blood Count 4.68 10^6/uL (4.70-6.10); Red Cell Distribution Width 13.2 % (11.0-15.0); White Blood Count 7.8 10^3/uL (4.0-11.0)
[2024-04-16] MEDS: IPRATROPIUM/ALBUTEROL SULFATE 3 ML AMPUL.NEB IH (17:44)
[2024-04-16 17:45] VITALS: PULSE 59; O2SAT 95
[2024-04-16] MEDS: METHYLPREDNISOLONE SOD SUCC PF 125 MG/2 ML VIAL IVP (17:48)
[2024-04-16 17:54] LABS: Alanine Aminotransferase 29 U/L (16-63); Albumin Globulin Ratio 1.4; Albumin Level 3.4 g/dL (3.4-5.0); Alkaline Phosphatase 83 U/L (46-116); Aspartate Amino Transferase 18 U/L (15-37); BUN Creatinine Ratio 7.9; Bilirubin Total 0.5 mg/dL (0.2-1.0); Calcium 8.9 mg/dL (8.5-10.1); Carbon Dioxide 29.2 mmol/L (21.0-32.0); Chloride 103 mmol/L (98-107); Estimated GFR (African America >60 (>=60); Estimated GFR (Non-African Ame >60 (>=60); Globulin 2.5 g/dL; Glucose 244 mg/dL (74-106); Potassium 3.2 mmol/L (3.5-5.1); Sodium 139 mmol/L (136-145); Total Protein 5.9 g/dL (6.4-8.2); Troponin I High Sensitivity 15.1 pg/mL (4.0-76.1)
[2024-04-16 19:05] VITALS: BP 189/81; PULSE 57; TEMP 36.2; O2SAT 93
== END 2024-04-16 19:10 | disposition home or self-care (01) ==
PROVIDERS: Emergency Provider Emergency Medicine
DX: J44.9 Chronic obstructive pulmonary disease, unspecified (principal); F17.210 Nicotine dependence, cigarettes, uncomplicated
CPT/HCPCS: 36415; 71045; 80053; 84484; 85025; 93005; 94640; 99285; 99406; J2919

== ENCOUNTER 2024-05-09 14:40 | Emergency (ER) | payer MEDICARE, SELFPAY ==
[2024-05-09 14:42] VITALS: BP 182/100; PULSE 77; TEMP 36.7; O2SAT 94; BMI 23.7
--- NOTE | 2024-05-09 14:53 | ED.SOB1 ---
HPI - SOB/Dyspnea General Chief Complaint: Shortness of Breath/Dyspnea Stated Complaint: SOB Time Seen by Provider: 05/09/24 14:50 Source: patient Mode of arrival: Wheelchair Limitations: no limitations History of Present Illness HPI Narrative: This patient drove himself to this facility for shortness of breath. Apparently he lives very close to another hospital system but prefers this place. He has been here numerous times in the past with well-documented noncompliance on medications. In fact today after he got out of his car and requested assist he was in our parking lot smoking a cigarette before he came into the hospital. He has normal pulse oximetry on arrival here I have reviewed a number of his previous medical records confirming this information. A stat twelve-lead EKG was done that shows some abnormalities and we will compare that to his previous studies. Related Data Home Medications ?Medication ?Instructions ?Recorded ?Confirmed albuterol sulfate 2.5 mg/3 mL 2.5 mg inhalation Q6H PRN 11/02/23 04/16/24 (0.083 %) solution for nebulization shortness of breath or wheezing albuterol sulfate 90 mcg/actuation 2 inh inhalation Q6H PRN shortness 03/13/24 04/16/24 aerosol inhaler of breath or wheezing Previous Rx's ?Medication ?Instructions ?Recorded losartan 100 mg tablet 100 mg PO DAILY #30 tabs 12/27/23 azithromycin 250 mg tablet See Rx Instructions PO .COMPLEX #6 04/16/24 (Zithromax Z-Luis) tabs prednisone 20 mg tablet 40 mg (2 x 20 mg) PO DAILY 5 days 04/16/24 #10 tabs Allergies Allergy/AdvReac Type Severity Reaction Status Date / Time No Known Drug Allergies Allergy Verified 04/16/24 16:47 [facility] Medical History (Updated 05/09/24 @ 16:00 by Fabricio Byrd MD) Hypokalemia ?E87.6 - Hypokalemia (ICD-10) New onset type 2 diabetes mellitus ?E11.9 - Type 2 diabetes mellitus without complications (ICD-10) Lower extremity edema ?R60.0 - Localized edema (ICD-10) Edema ?R60.9 - Edema, unspecified (ICD-10) Acute hyperglycemia ?R73.9 - Hyperglycemia, unspecified (ICD-10) Tobacco abuse ?Z72.0 - Tobacco use (ICD-10) HTN (hypertension) ?I10 - Essential (primary) hypertension (ICD-10) Community acquired pneumonia ?J18.9 - Pneumonia, unspecified organism (ICD-10) Chronic obstructive pulmonary disease ?J44.9 - Chronic obstructive pulmonary disease, unspecified (ICD-10) Acute exacerbation of chronic obstructive pulmonary disease (COPD) ?J44.1 - Chronic obstructive pulmonary disease with (acute) exacerbation (ICD-10) RLL pneumonia ?J18.9 - Pneumonia, unspecified organism (ICD-10) COPD (chronic obstructive pulmonary disease) ?J44.9 - Chronic obstructive pulmonary disease, unspecified (ICD-10) Surgical History (Updated 01/29/24 @ 06:45 by Latonia Martin RN) Hx of tonsillectomy ?Z90.89 - Acquired absence of other organs (ICD-10) Family History (Updated 12/25/23 @ 21:28 by Kym Ordaz) Mother Family history of cancer Family history of hypertension Father Family history of cancer Social History Within the past year, how often did you have a drink containing alcohol: 4 or more times a week Within the past year, how many standard drinks containing alcohol did you have on a typical day: 3 or 4 Within the past year, how often did you have six or more drinks on one occasion: less than monthly Total score: 3 Score interpretation: A score of 4 or more indicates drinking is likely to affect patient's safety. Smoking status: Current every day smoker Non-prescribed substance use: cannabis (any form) Previous occupational history: retired Highest level of school completed/degree received: high school graduate Are you now , , , , never or living with a partner: In a typical week, how many times do you talk on the telephone with family, friends, or neighbors: twice per week How often do you get together with friends or relatives: once per week How often do you attend sabianism or religion services: never Do you belong to any clubs or organizations such as sabianism groups unions, fraternal or athletic groups, or school groups: no Total score: 1 Score interpretation: A score of less than or equal to 1 indicates the most socially isolated. Little interest or pleasure in doing things: several days Feeling down, depressed, or hopeless: not at all Feel stressed/tense/nervous/anxious/difficulty sleeping: not at all Do you think of yourself as: straight/heterosexual Gender Identity: male Exam Narrative Exam Narrative: Awake alert oriented x 3 vital signs are noted does not appear in Extremities: Send says he is not clammy or diaphoretic. Pulse oximetry is 94% on room air Skin is warm and dry he is not cyanotic or diaphoretic. Examination of his chest shows no wheezing except when he does forceful exhalation or coughs. Heart sounds are normal with no murmur. Extremities have no leg edema no evidence of phlebitis or DVT. Peripheral perfusion extremities is normal. Skin is warm and dry no petechia or purpura. Neurological examination shows no focal deficits and he is a good historian. Constitutional Vital Signs, click to edit/add: Last Vital Signs Temp 98.1 F 05/09/24 14:42 Pulse 77 05/09/24 14:42 Resp 20 05/09/24 14:42 BP 182/100 H 05/09/24 14:42 Pulse Ox 94 L 05/09/24 14:42 O2 Del Method Room Air 05/09/24 14:42 Course Vital Signs Vital signs: Vital Signs Temperature 98.1 F 05/09/24 14:42 Pulse Rate 77 05/09/24 14:42 Respiratory Rate 20 05/09/24 14:42 Blood Pressure 182/100 H 05/09/24 14:42 Pulse Oximetry 94 L 05/09/24 14:42 Oxygen Delivery Method Room Air 05/09/24 14:42 Temperature 98.1 F 05/09/24 14:42 Pulse Rate 77 05/09/24 14:42 Respiratory Rate 20 05/09/24 14:42 Blood Pressure 182/100 H 05/09/24 14:42 Pulse Oximetry 94 L 05/09/24 14:42 Oxygen Delivery Method Room Air 05/09/24 14:42 MDM - SOB/Dyspnea MDM Narrative Medical decision making narrative: This patient presents emergency room on a repeated episodes for exacerbations. He seems to be noncompliant, actually smoking a cigarette in our parking lot waiting before he came into the hospital. I have strongly encouraged follow-up with one of our primary care clinicians. He was given a nebulizer treatment here. A chest x-ray was done and shows no acute findings or evidence of pneumonia. No swelling of his extremities to suggest DVT or phlebitis in his lower limbs. He assures me that he does have air conditioning in his living room. Discharge Plan Discharge Stand Alone Forms: Portal Instructions Chief Complaint: Shortness of Breath/Dyspnea Clinical Impression: COPD (chronic obstructive pulmonary disease), Tobacco abuse counseling Patient Disposition: Home, Self-Care Time of Disposition Decision: 16:30 Condition: Fair Prescriptions / Home Meds: No Action albuterol sulfate 2.5 mg /3 mL (0.083 %) solution for nebulization 2.5 mg inhalation Q6H PRN (Reason: shortness of breath or wheezing) losartan 100 mg tablet 100 mg PO DAILY Qty: 30 11RF albuterol sulfate 90 mcg/actuation HFA aerosol inhaler 2 inh inhalation Q6H PRN (Reason: shortness of breath or wheezing) azithromycin [Zithromax Z-Luis] 250 mg tablet See Rx Instructions .ROUTE .COMPLEX Qty: 6 0RF Rx Instructions: For 250 mg dose pack: take 500 mg today (day 1), then 250 mg for 4 days (days 2-5) prednisone 20 mg tablet 40 mg PO DAILY 5 Days Qty: 10 0RF Print Language: Lithuanian Additional Instructions: Follow-up with a local primary care doctor to get better control of your COPD Referrals: SERG DUENAS [Primary Care Provider] - 1 week
--- OUTSIDE RECORDS SUMMARY | 2024-05-09 15:11 | XMS_ITS | CCD ---
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 Garima Pulliam Basophils/100 WBC (Bld) 0.3 % Normal 0.2-2.0 [facility] Comment on above: Performed By: #### C BC ####[facility] Axay[address]zqkcf[address] [place] [address]DrAdalberto Pulliam EO # 0.3 103/ul Normal 0.0-0.7 [facility] Comment on above: Performed By: #### C BC ####[facility] [address] [place], [place] [address]Dr. Garima Pulliam Eosinophils/100 WBC (Bld) 2.8 % Normal 0.9-7.0 [facility] Comment on above: Performed By: #### C BC ####[facility] Nikxrtmnio[address] [place], [place] [address]Dr. Garima Pulliam Erythrocyte distribution width (RBC) [Ratio] 13.4 % Normal 11.0-15.0 [facility] Comment on above: Performed By: #### C BC ####[facility] I[address] [place], [place] [address]Dr. Garima Pulliam Hematocrit (Bld) [Volume fraction] 45.7 % Normal 42.0-54.0 [facility] Comment on above: Performed By: #### C BC ####[facility] Ajwbgbjq[address] [place], [place] [address]Dr. Garima Pulliam Hemoglobin (Bld) [Mass/Vol] 15.2 g/dL Normal 14.0-18.0 [facility] Comment on above: Performed By: #### C BC ####[facility] Bfynfluxjx[address] [place], [place] [address]Dr. Garima Pulliam IG # 0.02 10e3/ul Normal 0.00-0.03 [facility] Comment on above: Performed By: #### C BC ####[facility] Jucbjvnxhi[address] [place], [place] [address]Dr. Garima Pulliam IG % 0.2 % Normal 0.0-0.5 [facility] Comment on above: Performed By: #### C BC ####[facility] Umeiaofqgl[address] [place], [place] [address]Dr. Garima Pulliam LYMPH # 2.1 103/ul Normal 1.2-3.8 [facility] Comment on above: Performed By: #### C BC ####[facility] Wghtszfyup[address] [place], [place] [address]Dr. Garima Pulliam Lymphocytes/100 WBC (Bld) 23.7 % Normal 20.5-60.0 [facility] Comment on above: Performed By: #### C BC ####[facility] Xmtouwabpb[address] [place] [address]Dr. Garima Heraclio MANUAL DIFF REQ NO Normal [facility] Comment on above: Performed By: #### C BC ####[facility] Atelivllfe[address] [place] [address]Dr. Garima Pulliam MCH (RBC) [Entitic mass] 30.4 pg Normal 25.9-34.0 [facility] Comment on above: Performed By: #### C BC ####[facility] M[address]jglrhi[address] [place] [address]Dr. Garima Heraclio MCHC (RBC) [Mass/Vol] 33.3 g/dL Normal 29.9-35.2 [facility] Comment on above: Performed By: #### C BC ####[facility] Kmucrxklod[address] [place] [address]Dr. Chapisrenu Pulliam MCV (RBC) [Entitic vol] 91.4 fL Normal 80.0-94.0 [facility] Comment on above: Performed By: #### C BC ####[facility] Gmxqxyltdi[address] [place], [place] [address]Dr. Garima Heraclio MONO # 0.7 103/ul Normal 0.3-0.8 [facility] Comment on above: Performed By: #### C BC ####[facility] Dcngwglabe[address] [place], [place] [address]Dr. Chapisrenu Pulliam Monocytes/100 WBC (Bld) 8.3 % Normal 1.7-12.0 [facility] Comment on above: Performed By: #### C BC ####[facility] Vtwysfrujl[address] [place] [address]Dr. Garima Pulliam NEUT # 5.8 103/ul Normal 1.4-6.5 [facility] Comment on above: Performed By: #### C BC ####[facility] Hmnwtzcsfq0[address] [place], [place] [address]Dr. Garima Pulliam Neutrophils/100 WBC (Bld) 64.7 % Normal 43.0-75.0 [facility] Comment on above: Performed By: #### C BC ####[facility] Taufgkqwbg[address] [place] [address]Dr. Garima Pulliam Platelet mean volume (Bld) [Entitic vol] 8.6 fL Critically low 9.5-13.5 [facility] Comment on above: Performed By: #### C BC ####[facility] Zydxnaqqwh[address] [place] [address]Dr. Garima Pulliam PLT 230 103/ul Normal 150-450 [facility] Comment on above: Performed By: #### C BC ####[facility] Icbtnyeauo6[address] [place] [address]Dr. Chapisrenu Heraclio RBC 5.00 106/ul Normal 4.70-6.10 [facility] Comment on above: Performed By: #### C BC ####[facility] Gkvgzqavfi7[address] [place] [address]Dr. Garima Heraclio WBC 9.0 103/ul Normal 4.0-11.0 [facility] Comment on above: Performed By: #### C BC ####[facility] Cvfnpwuvfw360[address] [place] [address]Dr. Chapisrenu Pulliam MAGNESIUMon 04-04-2023 Magnesium [Mass/Vol] 1.8 mg/dL Normal 1.8-2.4 [facility] Comment on above: Performed By: #### M G ####[facility] Tfcjugcjvh[address] [place] [address]Dr. Chapisrenu Pulliam PROF 14(COMP METB)on 023 Albumin [Mass/Vol] 3.8 g/dL Normal 3.4-5.0 [facility] Comment on above: Performed By: #### C MP ####[facility] Xhltpxqdtu80[address] [place] [address]Dr. Garima Pulliam Albumin/Globulin [Mass ratio] 1.2 {ratio} Normal [facility] Comment on above: Performed By: #### C MP ####[facility] Eakyzjbjgh[address] [place] [address]Dr. Garima Heraclio ALP [Catalytic activity/Vol] 84 U/L Normal 46-116 [facility] Comment on above: Performed By: #### C MP ####[facility] Bfdfiacyyr[address] [place] [id number]. Garima Pulliam ALT [Catalytic activity/Vol] 31 U/L Normal 16-63 [facility] Comment on above: Performed By: #### C MP ####[facility] Nxuvihwcul[address] [place] [address]Dr. Garima Pulliam Anion gap [Moles/Vol] 12.2 mmol/L Normal Th e [facility] Comment on above: Performed By: #### C MP ####[facility] Pgwxwzsgeb3[address] [place] [address]Dr. Garima Pulliam AST [Catalytic activity/Vol] 23 U/L Normal 15-37 [facility] Comment on above: Performed By: #### C MP ####[facility] Brfnyernxt[address] [place], [place] [address]Dr. Garima Pulliam Bilirubin [Mass/Vol] 0.5 mg/dL Normal 0.2-1.0 The [facility] Comment on above: Performed By: #### C MP ####[facility] Ppvbxoqjsd[address] [place], [place] [address]Dr. Garima Pulliam Calcium [Mass/Vol] 9.2 mg/dL Normal 8.5-10.1 [facility] Comment on above: Performed By: #### C MP ####[facility] Qbydhtmctk[address] [place], [place] [address]Dr. Garima Pulliam Chloride [Moles/Vol] 103 mmol/L Normal 98-107 [facility] Comment on above: Performed By: #### C MP ####[facility] Tnrwwtetcw[address] [place] [address]Dr. Garima Pulliam CO2 [Moles/Vol] 28.5 mmol/L Normal 21.0-32.0 [facility] Comment on above: Performed By: #### C MP ####[facility] Kwtyrnkthp[address] [place], [place] [address]Dr. Garima Pulliam Creatinine [Mass/Vol] 0.74 mg/dL Normal 0.70-1.30 [facility] Comment on above: Performed By: #### C MP ####[facility] Iqjjrxsjqs56[address] [place] [address]Dr. Garima Pulliam EGFR-AF AUSTRALIAN >60 Normal >=60 [facility] Comment on above: Performed By: #### C MP ####[facility] Upofqtuyzf[address] [place] [address]Dr. Garima Pulliam EGFR-NON AF AUSTRALIAN >60 Normal >=60 The [facility] Comment on above: Performed By: #### C MP ####[facility] Afjjpxfgrf99[address] [place] [address]Dr. Garima Heraclio Globulin (S) [Mass/Vol] 3.1 g/dL Normal The [facility] Comment on above: Performed By: #### C MP ####[facility] Hrpbzniqnk[address] [place], [place] [address]Dr. Garima Heraclio Glucose [Mass/Vol] 93 mg/dL Normal 74-106 [facility] Comment on above: Performed By: #### C MP ####[facility] Bbscspjonb[address] [place], [place] [address]Dr. Garima Heraclio Potassium [Moles/Vol] 3.7 mmol/L Normal 3.5-5.1 The [facility] Comment on above: Performed By: #### C MP ####[facility] Bhvzztpbgs[address] [place], [place] [address]Dr. Garima Heraclio Protein [Mass/Vol] 6.9 g/dL Normal 6.4-8.2 [facility] Comment on above: Performed By: #### C MP ####[facility] Bopassbukw[address] [place] [address]Dr. Garima Heraclio Sodium [Moles/Vol] 140 mmol/L Normal 136-145 [facility] Comment on above: Performed By: #### C MP ####[facility] Ttrwdxowde[address] [place], [place] [address]Dr. Garima Pulliam Urea nitrogen [Mass/Vol] 8.0 mg/dL Normal 7.0-18.0 The [facility] Comment on above: Performed By: #### C MP ####[facility] Ukrefyvrae[address] [place], [place] [address]Dr. Garima Pulliam Urea nitrogen/Creatinine [Mass ratio] 10.8 mg/mg Normal The [facility] Comment on above: Performed By: #### C DAVID ####[facility] Ufshmuvxed[address] [place] [address]Dr. Garima Pulliam AMMONIAon 03-30-2023 Ammonia (P) [Moles/Vol] 11 umol/L Normal 11-32 The [facility] Comment on above: Performed By: #### A MM ####[facility] Aiovbzmgpn[address] [place], [place] [address]Dr. Garima Pulliam CARDIAC NASH ADMITon 023 CK [Catalytic activity/Vol] 232 U/L Normal 39-308 The [facility] Comment on above: Performed By: #### C DAVID, NANCY ####[facility] Nfnhccmczw[address] [place], [place] [address]Dr. Chapisrenu Pulliam CK.MB [Mass/Vol] 4.83 ng/mL Critically high <=3.60 The [facility] Comment on above: Performed By: #### C DAVID, NANCY ####[facility] Madozzifxr[address] [place], [place] [address]Dr. Garima Heraclio HSTROP 10.5 pg/mL Normal 4.0-76.1 The [facility] Comment on above: Result Comment: CUT- OFF POINTS HAVE BEEN ESTABLISHED BASED ON THE FOURTH UNIVERSAL DEFINITIONS OF MYOCARDIALINFARCTION. THE UPPER REFERENCE LIMIT (URL) OF TROPONIN, DEFINED THE 99TH PERCENTILE OFcTnI DISTRIBUTION IN A REFERENCE POPULATION, HAS BEEN CONFIRMED THE DECISION THRESHOLDFOR DC DIAGNOSIS. Performed By: #### C DAVID, NANCY ####[facility] Edouwdcxbq[address] [place], [place] [address]Dr. Chapisrenu Pulliam DORIS 79 ng/mL Normal 16-96 The [facility] Comment on above: Performed By: #### C DAVID, ERVINDM ####[facility] Oqaklaylbv[address] [place], [place] [address]Dr. Garima Heraclio CBC AUTO DIFFon 03-30-2023 BASO # 0.0 103/ul Normal 0.0-0.1 The [facility] Comment on above: Performed By: #### C BC ####[facility] Nqyzncktwl5[address] [place] [address]Dr. Garima Pulliam Basophils/100 WBC (Bld) 0.1 % Critically low 0.2-2.0 The [facility] Comment on above: Performed By: #### C BC ####[facility] Ldojrvmfre9[address] [place] [address]Dr. Garima Pulliam EO # 0.3 103/ul Normal 0.0-0.7 The [facility] Comment on above: Performed By: #### C BC ####[facility] Cfoajmlosr[address] [place], [place] [address]Dr. Garima Pulliam Eosinophils/100 WBC (Bld) 3.3 % Normal 0.9-7.0 The [facility] Comment on above: Performed By: #### C BC ####[facility] Fmfvyjzbgd[address] [place], [place] [address]Dr. Garima Pulliam Erythrocyte distribution width (RBC) [Ratio] 13.5 % Normal 11.0-15.0 The [facility] Comment on above: Performed By: #### C BC ####[facility] [address] [place], [place] [address]Dr. Garima Pulliam Hematocrit (Bld) [Volume fraction] 42.9 % Normal 42.0-54.0 [facility] Comment on above: Performed By: #### C BC ####[facility] [address]cdmca[address] [place], [place] [address]Dr. Garima Pulliam Hemoglobin (Bld) [Mass/Vol] 13.9 g/dL Critically low 14.0-18.0 The [facility] Comment on above: Performed By: #### C BC ####[facility] Baviaqvwuo[address] [place] [address]Dr. Garima Pulliam IG # 0.01 10e3/ul Normal 0.00-0.03 [facility] Comment on above: Performed By: #### C BC ####[facility] [address]yqlcuz[address] [place], [place] [address]Dr. Garima Pulliam IG % 0.1 % Normal 0.0-0.5 [facility] Comment on above: Performed By: #### C BC ####[facility] Icybfjjyad025[address] [place] [address]Dr. Garima Pulliam LYMPH # 1.7 103/ul Normal 1.2-3.8 The [facility] Comment on above: Performed By: #### C BC ####[facility] K[address]plx[address] [place], [place] [address]Sy. Garima Pulliam Lymphocytes/100 WBC (Bld) 22.8 % Normal 20.5-60.0 [facility] Comment on above: Performed By: #### C BC ####[facility] Pnbvwbmifh7[address] [place] [address]Dr. Garima Heraclio MANUAL DIFF REQ NO Normal [facility] Comment on above: Performed By: #### C BC ####[facility] Dsnpcxyzta32[address] [place] [address]Dr. Garima Heraclio MCH (RBC) [Entitic mass] 30.5 pg Normal 25.9-34.0 The [facility] Comment on above: Performed By: #### C BC ####[facility] [address]eb[address]ksdxi30[address] [place] [address]Dr. Garima Pulliam MCHC (RBC) [Mass/Vol] 32.4 g/dL Normal 29.9-35.2 [facility] Comment on above: Performed By: #### C BC ####[facility] Addboxvcyg8016 [place] [address]Dr. Garima Heraclio MCV (RBC) [Entitic vol] 94.1 fL Critically high 80.0-94.0 The [facility] Comment on above: Performed By: #### C BC ####[facility] Vaegzpwqyw4[address] [place] [address]Dr. Garima Heraclio MONO # 0.7 103/ul Normal 0.3-0.8 The [facility] Comment on above: Performed By: #### C BC ####[facility] Mtgrfjjnjt6[address] [place] [address]Dr. Garima Heraclio Monocytes/100 WBC (Bld) 8.6 % Normal 1.7-12.0 The [facility] Comment on above: Performed By: #### C BC ####[facility] Hqrytmjqwx1014 [place] [address]Dr. Garima Pulliam NEUT # 4.9 103/ul Normal 1.4-6.5 [facility] Comment on above: Performed By: #### C BC ####[facility] Zdtniixcoc8365 [place] [address]Dr. Garima Pulliam Neutrophils/100 WBC (Bld) 65.1 % Normal 43.0-75.0 [facility] Comment on above: Performed By: #### C BC ####[facility] Paxhqlscbb09[address] [place] [address]Dr. Garima Pulliam Platelet mean volume (Bld) [Entitic vol] 8.5 fL Critically low 9.5-13.5 [facility] Comment on above: Performed By: #### C BC ####[facility] Tqfxjwtjxt9[address] [place] [address]Dr. Garima Pulliam PLT 219 103/ul Normal 150-450 The [facility] Comment on above: Performed By: #### C BC ####[facility] Ehmlcbkxlg0864 [place] [address]Dr. Garima Pulliam RBC 4.56 106/ul Critically low 4.70-6.10 [facility] Comment on above: Performed By: #### C BC ####[facility] Gkzpvzhcyy9074 [place] [address]Dr. Garima Pulliam WBC 7.6 103/ul Normal 4.0-11.0 The [facility] Comment on above: Performed By: #### C BC ####[facility] Abdpknitou54[address] [place] [address]Dr. Garima Pulliam LACTATE/LACTIC ACIDon 2022 Lactate [Moles/Vol] 1.2 mmol/L Normal 0.4-2.0 [facility] Comment on above: Performed By: #### L ACT ####[facility] Bwljmlfxuj9[address] [place] [address]Dr. Garima Pulliam MAGNESIUMon 03-30-2023 Magnesium [Mass/Vol] 1.8 mg/dL Normal 1.8-2.4 [facility] Comment on above: Performed By: #### M G ####[facility] Devovwnkdu[address] [place] [address]Dr. Garima Pulliam PROF 14(COMP METB)on 023 Albumin [Mass/Vol] 3.5 g/dL Normal 3.4-5.0 [facility] Comment on above: Performed By: #### C DAVID, CMAANA ROSA ####[facility] Kelhfibjon[address] [place] [address]Dr. Garima Pulliam Albumin/Globulin [Mass ratio] 1.2 {ratio} Normal [facility] Comment on above: Performed By: #### C DAVID, NANCY ####[facility] Nlszorerjg37[address] [place] [address]Dr. Garima Pulliam ALP [Catalytic activity/Vol] 85 U/L Normal 46-116 [facility] Comment on above: Performed By: #### C DAVID, CMAANA ROSA ####[facility] Cosocscdre[address] [place] [address]Dr. Garima Pulliam ALT [Catalytic activity/Vol] 29 U/L Normal 16-63 [facility] Comment on above: Performed By: #### C DAVID, CMAANA ROSA ####[facility] [address]zmpiq[address] [place], [place] [address]Dr. Garima Pulliam Anion gap [Moles/Vol] 8.0 mmol/L Normal [facility] Comment on above: Performed By: #### C DAVID, CMAANA ROSA ####[facility] Vrswuzyhpm[address] [place] [address]Dr. Garima Pulliam AST [Catalytic activity/Vol] 18 U/L Normal 15-37 [facility] Comment on above: Performed By: #### C DAVID, CMADM ####[facility] Vgqrbllilv[address] [place] [address]Dr. Garima Pulliam Bilirubin [Mass/Vol] 0.4 mg/dL Normal 0.2-1.0 The [facility] Comment on above: Performed By: #### C DAVID, CMAANA ROSA ####[facility] Ogotkiyqsg[address] [place] [address]Dr. Garima Pulliam Calcium [Mass/Vol] 8.8 mg/dL Normal 8.5-10.1 [facility] Comment on above: Performed By: #### C DAVID, NANCY ####[facility] [facility] [address] [place] [address]Dr. Garima Pulliam Chloride [Moles/Vol] 108 mmol/L Critically high 98-107 [facility] Comment on above: Performed By: #### C DAVID, NANCY ####[facility] F[address]mtjwkp[address] [place] [address]Dr. Garima Pulliam CO2 [Moles/Vol] 29.6 mmol/L Normal 21.0-32.0 [facility] Comment on above: Performed By: #### C NANCY HERNANDEZ ####[facility] Fbbdc[address] [place], [place] [address]Dr. Chapisrenu Pulliam Creatinine [Mass/Vol] 0.77 mg/dL Normal 0.70-1.30 [facility] Comment on above: Performed By: #### C NANCY HERNANDEZ ####[facility] Pbcbmpvthn[address] [place], [place] [address]Dr. Garima Heraclio EGFR-AF AUSTRALIAN >60 Normal >=60 [facility] Comment on above: Performed By: #### C NANCY HERNANDEZ ####[facility] Ljmijnjvla[address] [place], [place] [address]Dr. Garima Heraclio EGFR-NON AF AUSTRALIAN >60 Normal >=60 [facility] Comment on above: Performed By: #### C NANCY HERNANDEZ ####[facility] [address]zqpv[address] [place] [address]Dr. Chapisrenu Pulliam Globulin (S) [Mass/Vol] 2.8 g/dL Normal [facility] Comment on above: Performed By: #### C NANCY HERNANDEZ ####[facility] Sqwjvrrjxn[address] [place] [address]Dr. Garima Pulliam Glucose [Mass/Vol] 207 mg/dL Critically high 74-106 [facility] Comment on above: Performed By: #### C NANCY HENRANDEZ ####[facility] Zexnbyadpl[address] [place], [place] [address]Dr. Garima Pulliam Potassium [Moles/Vol] 4.6 mmol/L Normal 3.5-5.1 [facility] Comment on above: Performed By: #### C DAVID, NANCY ####[facility] Hwgpqvjx[address] [place] [address]Dr. Garima Pulliam Protein [Mass/Vol] 6.3 g/dL Critically low 6.4-8.2 [facility] Comment on above: Performed By: #### C DAVID, NANCY ####[facility] Mdobfrshbo[address] [place] [address]Dr. Garima Pulliam Sodium [Moles/Vol] 141 mmol/L Normal 136-145 [facility] Comment on above: Performed By: #### C DAVID, NANCY ####[facility] Chxmczogai[address] [place] [address]Dr. Garima Pulliam Urea nitrogen [Mass/Vol] 9.0 mg/dL Normal 7.0-18.0 [facility] Comment on above: Performed By: #### C DAVID, NANCY ####[facility] Vsutpzeilt[address] [place] [address]Dr. Garima Pulliam Urea nitrogen/Creatinine [Mass ratio] 11.7 mg/mg Normal [facility] Comment on above: Performed By: #### C DAVID, NANCY ####[facility] Unmhpyhjkg[address] [place] [address]Dr. Garima Pulliam XR CHEST 1 Von 03-30-2023 XR CHEST 1 V Normal [facility] BNPon 03-27-2023 Natriuretic peptide B (Bld) [Mass/Vol] 251.0 pg/mL Normal <=900.0 [facility] Comment on above: Performed By: #### C MP, BNP, LIPID ####[facility] Dcufffetlf[address] [place] [address]Dr. Garima Pulliam GLYCOHEMOGLOBIN A1Con 2022 ADA RECOMMENDATION SEE BELOW Normal [facility] Comment on above: Result Comment: ADA RECOMMENDED LIMIT 4.0 - 6.0 ADA THERAPEUTIC TARGET < 7.0 ACTION SUGGESTED > 7.0 Performed By: #### A 1C ####[facility] Piljfcahje[address] [place] [address]Dr. Garima Pulliam Glucose [Mass/Vol] 180 mg/dL Normal [facility] Comment on above: Performed By: #### A 1C ####[facility] Qusjabepgn[address] [place], [place] [address]Dr. Garima Pulliam HbA1c (Bld) [Mass fraction] 7.9 % Critically high 4.5-6.2 [facility] Comment on above: Performed By: #### A 1C ####[facility] Ararmowkqs[address] [place], [place] [address]Dr. Garima Pulliam HEMOGRAM AND PLATELon 2022 Hematocrit (Bld) [Volume fraction] 45.7 % Normal 42.0-54.0 [facility] Comment on above: Performed By: #### H H ####[facility] Vlihcclfkz[address] [place], [place] [address]Dr. Garima Pulliam Hemoglobin (Bld) [Mass/Vol] 15.1 g/dL Normal 14.0-18.0 [facility] Comment on above: Performed By: #### H H ####[facility] Fozpwrzjok[address] [place], [place] [address]Dr. Garima Pulliam MCH (RBC) [Entitic mass] 30.0 pg Normal 25.9-34.0 [facility] Comment on above: Performed By: #### H H ####[facility] Znftttyvgb[address] [place], [place] [address]Dr. Garima Pulliam MCHC (RBC) [Mass/Vol] 33.0 g/dL Normal 29.9-35.2 [facility] Comment on above: Performed By: #### H H ####[facility] Qddseazfgv[address] [place], [place] [address]Dr. Chapisrenu Pulliam MCV (RBC) [Entitic vol] 90.7 fL Normal 80.0-94.0 [facility] Comment on above: Performed By: #### H H ####[facility] [address]lvllrbisl[address] [place], [place] [address]Dr. Garima Pulliam PLT 222 103/ul Normal 150-450 [facility] Comment on above: Performed By: #### H H ####[facility] F[address]ijerusba[address] [place] [id number]. Garima Pulliam RBC 5.04 106/ul Normal 4.70-6.10 [facility] Comment on above: Performed By: #### H H ####[facility] Mnwktlysgf[address] [place] [id number]. Garima Pulliam WBC 8.7 103/ul Normal 4.0-11.0 [facility] Comment on above: Performed By: #### H H ####[facility] Levoetbiro[address] [place] [id number]. Garima Pulliam LIPID PROFILEon 03-27-2023 CHOL-HDL RATIO NORM SEE BELOW Normal [facility] Comment on above: Result Comment: 3.3 - 4.4 LOW RISK 4.4 - 7.1 AVERAGE RISK 7.1 - 11.0 MODERATE RISK >11.0 HIGH RISK Performed By: #### C MP, BNP, LIPID ####[facility] Ok[address]lmffd[address] [place] [address]Dr. Garima Pulliam Cholesterol [Mass/Vol] 113 mg/dL Normal <=200 [facility] Comment on above: Performed By: #### C MP, BNP, LIPID ####[facility] Vkw[address]ifpde[address] [place] [address]Dr. Garima Pulliam Cholesterol in HDL [Mass/Vol] 51 mg/dL Normal 40-60 [facility] Comment on above: Performed By: #### C MP, BNP, LIPID ####[facility] [address]wvu[address] [place] [id number]. Garima Pulliam Cholesterol in LDL [Mass/Vol] 49.8 mg/dL Normal [facility] Comment on above: Performed By: #### C MP, BNP, LIPID ####[facility] [address] [place] [id number]. Garima Pulliam Cholesterol.total/Cho lesterol in HDL [Mass ratio] 2.2 {ratio} Normal [facility] Comment on above: Performed By: #### C MP, BNP, LIPID ####[facility] [address]ckskr[address] [place] [address]Dr. Garima Pulliam HDL NORMAL > or = 60 mg/dl - LOW CARDIOVASCULAR RISK <40 mg/dl - HIGH CARDIOVASCULAR RISK Normal [facility] Comment on above: Performed By: #### C MP, BNP, LIPID ####[facility] Otq[address]qmhhk[address] [place] [address]Dr. Garima Pulliam LDL CALC NORMAL SEE BELOW Normal [facility] Comment on above: Result Comment: <100 mg/dl OPTIMAL 100 - 129 mg/dl NEAR OR ABOVE OPTIMAL 130 - 159 mg/dl BORDERLINE HIGH 160 - 189 mg/dl HIGH >190 mg/dl VERY HIGH Performed By: #### C MP, BNP, LIPID ####[facility] J[address]be[address]azjw[address] [place] [address]Dr. Garima Pulliam Triglyceride [Mass/Vol] 61 mg/dL Normal <=150 [facility] Comment on above: Performed By: #### C MP, BNP, LIPID ####[facility] Nimqlejbbb[address] [place] [address]Dr. Garima Pulliam VLDL CALC 12.2 mg/dL Normal [facility] Comment on above: Performed By: #### C MP, BNP, LIPID ####[facility] Qeszllrolp[address] [place] [address]Dr. Garima Pulliam PROF 14(COMP METB)on 023 Albumin [Mass/Vol] 3.5 g/dL Normal 3.4-5.0 [facility] Comment on above: Performed By: #### C MP, BNP, LIPID ####[facility] K[address]ramddc[address] [place] [address]Dr. Garima Pulliam Albumin/Globulin [Mass ratio] 1.2 {ratio} Normal [facility] Comment on above: Performed By: #### C MP, BNP, LIPID ####[facility] Yixpzbglke[address] [place] [address]Dr. Garima Pulliam ALP [Catalytic activity/Vol] 82 U/L Normal 46-116 [facility] Comment on above: Performed By: #### C MP, BNP, LIPID ####[facility] Foxmvctidm[address] [place] [address]Dr. Garima Pulliam ALT [Catalytic activity/Vol] 33 U/L Normal 16-63 [facility] Comment on above: Performed By: #### C MP, BNP, LIPID ####[facility] J[address]qnwnfwa[address] [place] [address]Dr. Garima Pulliam Anion gap [Moles/Vol] 9.9 mmol/L Normal [facility] Comment on above: Performed By: #### C MP, BNP, LIPID ####[facility] Qtkspssttb3086 [place] [address]Dr. Garima Pulliam AST [Catalytic activity/Vol] 24 U/L Normal 15-37 [facility] Comment on above: Performed By: #### C MP, BNP, LIPID ####[facility] Calsmsewic[address] [place] [address]Dr. Garima Pulliam Bilirubin [Mass/Vol] 0.6 mg/dL Normal 0.2-1.0 [facility] Comment on above: Performed By: #### C MP, BNP, LIPID ####[facility] Z[address]xpooaac[address] [place] [address]Dr. Garima Pulliam Calcium [Mass/Vol] 9.2 mg/dL Normal 8.5-10.1 [facility] Comment on above: Performed By: #### C MP, BNP, LIPID ####[facility] Yswremhcyo[address] [place] [address]Dr. Garima Pulliam Chloride [Moles/Vol] 106 mmol/L Normal 98-107 [facility] Comment on above: Performed By: #### C MP, BNP, LIPID ####[facility] Xhqvsgdnpw[address] [place] [address]Dr. Garima Pulliam CO2 [Moles/Vol] 32.3 mmol/L Critically high 21.0-32.0 [facility] Comment on above: Performed By: #### C MP, BNP, LIPID ####[facility] Jqkezkrstw[address] [place] [address]Dr. Garima Pulliam Creatinine [Mass/Vol] 0.70 mg/dL Normal 0.70-1.30 [facility] Comment on above: Performed By: #### C MP, BNP, LIPID ####[facility] Jtyrsujaus[address] [place] [id number]. Garima Pulliam EGFR-AF AUSTRALIAN >60 Normal >=60 [facility] Comment on above: Performed By: #### C MP, BNP, LIPID ####[facility] Hbiucozagk[address] [place] [id number]. Garima Pulliam EGFR-NON AF AUSTRALIAN >60 Normal >=60 [facility] Comment on above: Performed By: #### C MP, BNP, LIPID ####[facility] Euqojkcbgl[address] [place] [address]Dr. Garima Pulliam Globulin (S) [Mass/Vol] 2.9 g/dL Normal [facility] Comment on above: Performed By: #### C MP, BNP, LIPID ####[facility] Xfwenvjkdd[address] [place] [address]Dr. Garima Pulliam Glucose [Mass/Vol] 111 mg/dL Critically high 74-106 [facility] Comment on above: Performed By: #### C MP, BNP, LIPID ####[facility] Phczawpuyp[address] [place] [address]Dr. Garima Pulliam Potassium [Moles/Vol] 4.2 mmol/L Normal 3.5-5.1 [facility] Comment on above: Performed By: #### C MP, BNP, LIPID ####[facility] Jhuyqptrts[address] [place] [address]Dr. Garima Pulliam Protein [Mass/Vol] 6.4 g/dL Normal 6.4-8.2 [facility] Comment on above: Performed By: #### C MP, BNP, LIPID ####[facility] Fdmptglgao[address] [place] [address]Dr. Garima Pulliam Sodium [Moles/Vol] 144 mmol/L Normal 136-145 [facility] Comment on above: Performed By: #### C MP, BNP, LIPID ####[facility] Dbagcwgeod[address] [place] [address]Dr. Garima Pulliam Urea nitrogen [Mass/Vol] 7.0 mg/dL Normal 7.0-18.0 [facility] Comment on above: Performed By: #### C MP, BNP, LIPID ####[facility] Srntacheyi[address] [place], [place] [address]Dr. Garima Pulliam Urea nitrogen/Creatinine [Mass ratio] 10.0 mg/mg Normal [facility] Comment on above: Performed By: #### C MP, BNP, LIPID ####[facility] Yatifxcawm[address] [place], [place] [address]Dr. Garima Pulliam BNPon 03-22-2023 Natriuretic peptide B (Bld) [Mass/Vol] 103.0 pg/mL Normal <=900.0 [facility] Comment on above: Performed By: #### B WAISTLINE JOINER, BMP ####[facility] Xioizxmcpa[address] [place], [place] [address]Dr. Garima Pulliam CBC AUTO DIFFon 03-22-2023 BASO # 0.0 103/ul Normal 0.0-0.1 [facility] Comment on above: Performed By: #### C BC ####[facility] Dokdapjfht[address] [place], [place] [address]Dr. Garima Heraclio Basophils/100 WBC (Bld) 0.3 % Normal 0.2-2.0 [facility] Comment on above: Performed By: #### C BC ####[facility] Qvgcitxgzz[address] [place], [place] [address]Dr. Garima Pulliam EO # 0.2 103/ul Normal 0.0-0.7 [facility] Comment on above: Performed By: #### C BC ####[facility] Jripntyqwd[address] [place], [place] [address]Dr. Garima Heraclio Eosinophils/100 WBC (Bld) 2.2 % Normal 0.9-7.0 [facility] Comment on above: Performed By: #### C BC ####[facility] Ydbikexpxv[address] [place], [place] [address]Dr. Garima Pulliam Erythrocyte distribution width (RBC) [Ratio] 13.2 % Normal 11.0-15.0 [facility] Comment on above: Performed By: #### C BC ####[facility] Pjblkpoewh[address] [place] [address]Dr. Garima Pulliam Hematocrit (Bld) [Volume fraction] 43.4 % Normal 42.0-54.0 [facility] Comment on above: Performed By: #### C BC ####[facility] Pvohmphzdk[address] [place] [address]Dr. Garima Heraclio Hemoglobin (Bld) [Mass/Vol] 14.3 g/dL Normal 14.0-18.0 [facility] Comment on above: Performed By: #### C BC ####[facility] K[address]piewlk[address] [place] [address]Dr. Garima Pulliam IG # 0.02 10e3/ul Normal 0.00-0.03 [facility] Comment on above: Performed By: #### C BC ####[facility] Atzeuhnhlo[address] [place] [address]Dr. Garima Pulliam IG % 0.3 % Normal 0.0-0.5 [facility] Comment on above: Performed By: #### C BC ####[facility] Qyfguvwjvo38[address] [place] [address]Dr. Chapisrenu Pulliam LYMPH # 2.0 103/ul Normal 1.2-3.8 [facility] Comment on above: Performed By: #### C BC ####[facility] Dcphgtukss[address] [place] [address]Dr. Garima Pulliam Lymphocytes/100 WBC (Bld) 24.8 % Normal 20.5-60.0 [facility] Comment on above: Performed By: #### C BC ####[facility] Srzgtjthpd25[address] [place] [address]Dr. Chapisrenu Pulliam MANUAL DIFF REQ NO Normal [facility] Comment on above: Performed By: #### C BC ####[facility] Lrjiigez[address] [place], [place] [address]Dr. Garima Heraclio MCH (RBC) [Entitic mass] 30.0 pg Normal 25.9-34.0 [facility] Comment on above: Performed By: #### C BC ####[facility] [address] [place], [place] [address]Dr. Garima Pulliam MCHC (RBC) [Mass/Vol] 32.9 g/dL Normal 29.9-35.2 [facility] Comment on above: Performed By: #### C BC ####[facility] Aquvbwnhkf[address] [place] [id number]. Garima Pulliam MCV (RBC) [Entitic vol] 91.0 fL Normal 80.0-94.0 [facility] Comment on above: Performed By: #### C BC ####[facility] Ewljgcqauj[address] [place] [id number]. Garima Heraclio MONO # 0.8 103/ul Normal 0.3-0.8 [facility] Comment on above: Performed By: #### C BC ####[facility] Atxmzmtiyc[address] [place] [address]Dr. Chapisrenu Pulliam Monocytes/100 WBC (Bld) 9.7 % Normal 1.7-12.0 [facility] Comment on above: Performed By: #### C BC ####[facility] [address]eb[address]mlz[address] [place], [place] [address]Dr. Garima Pulliam NEUT # 4.9 103/ul Normal 1.4-6.5 [facility] Comment on above: Performed By: #### C BC ####[facility] Yosjaooisy[address] [place] [id number]. Garima Heraclio Neutrophils/100 WBC (Bld) 62.7 % Normal 43.0-75.0 [facility] Comment on above: Performed By: #### C BC ####[facility] Jtwxrhgsci[address] [place] [address]Dr. Garima Heraclio Platelet mean volume (Bld) [Entitic vol] 8.8 fL Critically low 9.5-13.5 [facility] Comment on above: Performed By: #### C BC ####[facility] Yptvebzacc06[address] [place] [id number]. Garima Heraclio PLT 198 103/ul Normal 150-450 [facility] Comment on above: Performed By: #### C BC ####[facility] Kklqawccgc[address] [place] [address]Dr. Garima Pulliam RBC 4.77 106/ul Normal 4.70-6.10 [facility] Comment on above: Performed By: #### C BC ####[facility] Glbawwtbyb20[address] [place] [id number]. Garima Pulliam WBC 7.9 103/ul Normal 4.0-11.0 [facility] Comment on above: Performed By: #### C BC ####[facility] Ttjlqyrqju[address] [place] [id number]. Garima Pulliam D-DIMERon 03-22-2023 D-DIMER 0.85 mg/L FEU Critically high <=0.59 [facility] Comment on above: Performed By: #### D DIM ####[facility] [address]jxgbonpir[address] [place], [place] [address]Dr. Garima Pulliam D-DIMER COMMENTS SEE BELOW Normal [facility] Comment on [...] Performed By: #### D DIM ####[facility] Lmpzhjtzud[address] [place], [place] [address]Dr. Garima Pulliam PROF CHEM 8 (BAS METB)on Anion gap [Moles/Vol] 6.9 mmol/L Normal [facility] Comment on above: Performed By: #### B WAISTLINE JOINER, BMP ####[facility] Mtuzdfyejq[address] [place], [place] [address]Dr. Garima Pulliam Calcium [Mass/Vol] 8.9 mg/dL Normal 8.5-10.1 [facility] Comment on above: Performed By: #### B WAISTLINE JOINER, BMP ####[facility] Zgmsalasbv[address] [place], [place] [address]Dr. Garima Pulliam Chloride [Moles/Vol] 101 mmol/L Normal 98-107 [facility] Comment on above: Performed By: #### B WAISTLINE JOINER, BMP ####[facility] Cvjpbqhlnp[address] [place], [place] [address]Dr. Garima Pulliam CO2 [Moles/Vol] 30.7 mmol/L Normal 21.0-32.0 [facility] Comment on above: Performed By: #### B WAISTLINE JOINER, BMP ####[facility] Wpmxnvzbyn[address] [place], [place] [address]Dr. Chapisrenu Heraclio Creatinine [Mass/Vol] 0.82 mg/dL Normal 0.70-1.30 [facility] Comment on above: Performed By: #### B WAISTLINE JOINER, BMP ####[facility] Jcwaydznbj[address] [place], [place] [address]Dr. Chapisrenu Heraclio EGFR-AF AUSTRALIAN >60 Normal >=60 [facility] Comment on above: Performed By: #### B WAISTLINE JOINER, BMP ####[facility] Gaxudxhjlv[address] [place], [place] [address]Dr. Chapisrenu Heraclio EGFR-NON AF AUSTRALIAN >60 Normal >=60 [facility] Comment on above: Performed By: #### B WAISTLINE JOINER, BMP ####[facility] Ywmfelufji[address] [place], [place] [address]Dr. Chapisrenu Heraclio Glucose [Mass/Vol] 339 mg/dL Critically high 74-106 [facility] Comment on above: Performed By: #### B WAISTLINE JOINER, BMP ####[facility] Fildmjpbcd[address] [place], [place] [address]Dr. Chapisrenu Heraclio Potassium [Moles/Vol] 3.6 mmol/L Normal 3.5-5.1 [facility] [facility] Comment on above: Performed By: #### B WAISTLINE JOINER, BMP ####[facility] Qxnjlvddkj[address] [place], [place] [address]Dr. Garima Pulliam Sodium [Moles/Vol] 135 mmol/L Critically low 136-145 [facility] Comment on above: Performed By: #### B WAISTLINE JOINER, BMP ####[facility] Tzadjddsqf[address] [place], [place] [address]Dr. Garima Pulliam Urea nitrogen [Mass/Vol] 11.0 mg/dL Normal 7.0-18.0 [facility] Comment on above: Performed By: #### B WAISTLINE JOINER, BMP ####[facility] Yfyixwrmxx[address] [place], [place] [address]Dr. Garima Pulliam Urea nitrogen/Creatinine [Mass ratio] 13.4 mg/mg Normal [facility] Comment on above: Performed By: #### B WAISTLINE JOINER, BMP ####[facility] Zldqsomwps020[address] [place], [place] [address]Dr. Garima Pulliam US VERONICA DOP LEG BILon 023 US VERONICA DOP LEG BENOIT Normal [facility] BNPon 03-18-2023 Natriuretic peptide B (Bld) [Mass/Vol] 226.0 pg/mL Normal <=900.0 The [facility] Comment on above: Performed By: #### B WAISTLINE JOINER, BMP ####[facility] Syabbxkivo[address] [place], [place] [address]Dr. Garima Heraclio CBC AUTO DIFFon 03-18-2023 BASO # 0.0 103/ul Normal 0.0-0.1 [facility] Comment on above: Performed By: #### C BC ####[facility] Zhklowumum12[address] [place], [place] [address]Dr. Garima Heraclio Basophils/100 WBC (Bld) 0.2 % Normal 0.2-2.0 [facility] Comment on above: Performed By: #### C BC ####[facility] Phziszaqdk0825[address] [place], [place] [address]Dr. Garima Pulliam EO # 0.3 103/ul Normal 0.0-0.7 The [facility] Comment on above: Performed By: #### C BC ####[facility] Zjgccuqnmk[address] [place], [place] [address]Dr. Garima Heraclio Eosinophils/100 WBC (Bld) 2.5 % Normal 0.9-7.0 The [facility] Comment on above: Performed By: #### C BC ####[facility] Xrhzoehfbw20[address] [place], [place] [address]Dr. Garima Heraclio Erythrocyte distribution width (RBC) [Ratio] 13.2 % Normal 11.0-15.0 [facility] Comment on above: Performed By: #### C BC ####[facility] [address] [place] [address]DrAdalberto Pulliam Hematocrit (Bld) [Volume fraction] 45.8 % Normal 42.0-54.0 [facility] Comment on above: Performed By: #### C BC ####[facility] [address]ixpks[address] [place] [address]DrAdalberto Pulliam Hemoglobin (Bld) [Mass/Vol] 15.3 g/dL Normal 14.0-18.0 [facility] Comment on above: Performed By: #### C BC ####[facility] Ixzhesxmic240[address] [place], [place] [address]DrAdalberto Pulliam IG # 0.02 10e3/ul Normal 0.00-0.03 [facility] Comment on above: Performed By: #### C BC ####[facility] Tpfhropjsu[address] [place], [place] [address]DrAdalberto Pulliam IG % 0.2 % Normal 0.0-0.5 [facility] Comment on above: Performed By: #### C BC ####[facility] Uidftrylkc[address] [place], [place] [address]DrAdalberto Pulliam LYMPH # 1.8 103/ul Normal 1.2-3.8 [facility] Comment on above: Performed By: #### C BC ####[facility] Brfgofamtb000[address] [place], [place] [address]DrAdalberto Pulliam Lymphocytes/100 WBC (Bld) 18.3 % Critically low 20.5-60.0 [facility] Comment on above: Performed By: #### C BC ####[facility] Jylmadkoot[address] [place], [place] [address]DrAdalberto Pulliam MANUAL DIFF REQ NO Normal [facility] Comment on above: Performed By: #### C BC ####[facility] Notdsgsmmy[address] [place] [address]DrAdalberto Pulliam MCH (RBC) [Entitic mass] 30.5 pg Normal 25.9-34.0 [facility] Comment on above: Performed By: #### C BC ####[facility] Fop[address]eklrq[address] [place] [address]DrAdalberto Pulliam MCHC (RBC) [Mass/Vol] 33.4 g/dL Normal 29.9-35.2 The [facility] Comment on above: Performed By: #### C BC ####[facility] Rqibcxaynj[address] [place] [address]DrAdalberto Pulliam MCV (RBC) [Entitic vol] 91.2 fL Normal 80.0-94.0 The [facility] Comment on above: Performed By: #### C BC ####[facility] Hlairxqjom[address] [place], [place] [address]DrAdalberto Pulliam MONO # 0.8 103/ul Normal 0.3-0.8 The [facility] Comment on above: Performed By: #### C BC ####[facility] Vdtvgwkrdk355[address] [place], [place] [address]DrAdalberto Pulliam Monocytes/100 WBC (Bld) 7.6 % Normal 1.7-12.0 The [facility] Comment on above: Performed By: #### C BC ####[facility] Oohaeifuyo334[address] [place], [place] [address]DrAdalberto Pulliam NEUT # 7.0 103/ul Critically high 1.4-6.5 [facility] Comment on above: Performed By: #### C BC ####[facility] Uozdqbelzb2834[address] [place], [place] [address]DrAdalberto Pulliam Neutrophils/100 WBC (Bld) 71.2 % Normal 43.0-75.0 The [facility] Comment on above: Performed By: #### C BC ####[facility] Kzdwrqrquq[address] [place], [place] [address]DrAdalberto Pulliam Platelet mean volume (Bld) [Entitic vol] 8.9 fL Critically low 9.5-13.5 The [facility] Comment on above: Performed By: #### C BC ####[facility] Nkvqotveke403[address] [place], [place] [address]DrAdalberto Pulliam PLT 217 103/ul Normal 150-450 [facility] Comment on above: Performed By: #### C BC ####[facility] Qdpgmantsx744[address] [place], [place] [address]Dr. Garima Pulliam RBC 5.02 106/ul Normal 4.70-6.10 [facility] Comment on above: Performed By: #### C BC ####[facility] Zlozzpgcga245[address] [place], [place] [address]Dr. Garima Pulliam WBC 9.8 103/ul Normal 4.0-11.0 [facility] Comment on above: Performed By: #### C BC ####[facility] Xqlrrcgswr787[address] [place], [place] [address]Dr. Garima Heraclio CRPon 03-18-2023 CRP 0.1 mg/dL Normal <=1.0 [facility] Comment on above: Performed By: #### C RP ####[facility] Ajoxmildgh0170[address] [place], [place] [address]Dr. Garima Heraclio PROF CHEM 8 (BAS METB)on Anion gap [Moles/Vol] 10.4 mmol/L Normal [facility] Comment on above: Performed By: #### B WAISTLINE JOINER, BMP ####[facility] Uiwgvtfest9201[address] [place], [place] [address]Dr. Garima Heraclio Calcium [Mass/Vol] 8.8 mg/dL Normal 8.5-10.1 [facility] Comment on above: Performed By: #### B WAISTLINE JOINER, BMP ####[facility] Ctoqpofpoz168[address] [place], [place] [address]Dr. Garima Heraclio Chloride [Moles/Vol] 97 mmol/L Critically low 98-107 [facility] Comment on above: Performed By: #### B WAISTLINE JOINER, BMP ####[facility] Bamyptlmrc668[address] [place], [place] [address]Dr. Garima Pulliam CO2 [Moles/Vol] 31.2 mmol/L Normal 21.0-32.0 [facility] Comment on above: Performed By: #### B WAISTLINE JOINER, BMP ####[facility] Iebfpxyzfk[address] [place], [place] [address]Dr. Garima Pulliam Creatinine [Mass/Vol] 0.91 mg/dL Normal 0.70-1.30 [facility] Comment on above: Performed By: #### B WAISTLINE JOINER, BMP ####[facility] Frpqcmblpd[address] [place] [address]Dr. Garima Pulliam EGFR-AF AUSTRALIAN >60 Normal >=60 [facility] Comment on above: Performed By: #### B WAISTLINE JOINER, BMP ####[facility] Nvxdaarhdj[address] [place], [place] [address]Dr. Garima Pulliam EGFR-NON AF AUSTRALIAN >60 Normal >=60 [facility] Comment on above: Performed By: #### B WAISTLINE JOINER, BMP ####[facility] Ikhlijfrzd[address] [place], [place] [address]Dr. Garima Pulliam Glucose [Mass/Vol] 315 mg/dL Critically high 74-106 T [facility] Comment on above: Performed By: #### B WAISTLINE JOINER, BMP ####[facility] Flgbqnjkkn0436[address] [place], [place] [address]Dr. Garima Pulliam Potassium [Moles/Vol] 3.6 mmol/L Normal 3.5-5.1 [facility] Comment on above: Performed By: #### B WAISTLINE JOINER, BMP ####[facility] Pnpxwdeegv6[address] [place], [place] [address]Dr. Garima Pulliam Sodium [Moles/Vol] 135 mmol/L Critically low 136-145 [facility] Comment on above: Performed By: #### B WAISTLINE JOINER, BMP ####[facility] Nlsznitdzz[address] [place], [place] [address]Dr. Garima Pulliam Urea nitrogen [Mass/Vol] 7.0 mg/dL Normal 7.0-18.0 [facility] Comment on above: Performed By: #### B WAISTLINE JOINER, BMP ####[facility] Wwfnslvgft0935[address] [place], [place] [address]Dr. Garima Pulliam Urea nitrogen/Creatinine [Mass ratio] 7.7 mg/mg Normal [facility] Comment on above: Performed By: #### B WAISTLINE JOINER, BMP ####[facility] Ulgnpexpdr1820[address] [place], [place] [address]Dr. Garmia Pulliam SED RATE WESTERGRENon 2022 SED RATE 8 mm/hr Normal <=20 The [facility] Comment on above: Performed By: #### S EDR ####[facility] [address] [place] [address]Dr. Garima Pulliam BNPon 03-16-2023 Natriuretic peptide B (Bld) [Mass/Vol] 241.0 pg/mL Normal <=900.0 The [facility] Comment on above: Performed By: #### B WAISTLINE JOINER, BMP, HSTROPN ####[facility] [address]fsbbsu[address] [place] [address]Dr. Garima Pulliam CBC AUTO DIFFon 03-16-2023 BASO # 0.0 103/ul Normal 0.0-0.1 [facility] Comment on above: Performed By: #### C BC ####[facility] Ovesuvrqma[address] [place], [place] [address]Dr. Garima Heraclio Basophils/100 WBC (Bld) 0.2 % Normal 0.2-2.0 [facility] Comment on above: Performed By: #### C BC ####[facility] E[address]qdrcylj[address] [place] [address]Dr. Garima Pulliam EO # 0.2 103/ul Normal 0.0-0.7 The [facility] Comment on above: Performed By: #### C BC ####[facility] Jrkrnnnhav[address] [place] [address]Dr. Garima Heraclio Eosinophils/100 WBC (Bld) 2.7 % Normal 0.9-7.0 The [facility] Comment on above: Performed By: #### C BC ####[facility] Zdldvmgsaq6864[address] [place], [place] [address]Dr. Garima Pulliam Erythrocyte distribution width (RBC) [Ratio] 13.1 % Normal 11.0-15.0 The [facility] Comment on above: Performed By: #### C BC ####[facility] Pwklbndzrb[address] [place], [place] [address]Dr. Garima Pulliam Hematocrit (Bld) [Volume fraction] 41.8 % Critically low 42.0-54.0 [facility] Comment on above: Performed By: #### C BC ####[facility] Qxaltemtmt[address] [place] [address]Dr. Garima Pulliam Hemoglobin (Bld) [Mass/Vol] 14.0 g/dL Normal 14.0-18.0 [facility] Comment on above: Performed By: #### C BC ####[facility] A[address]ontgam[address] [place] [address]Dr. Garima Pulliam IG # 0.03 10e3/ul Normal 0.00-0.03 [facility] Comment on above: Performed By: #### C BC ####[facility] Lbf[address]xbpwd[address] [place] [address]Dr. Garima Pulliam IG % 0.3 % Normal 0.0-0.5 [facility] Comment on above: Performed By: #### C BC ####[facility] Maweoowosy[address] [place], [place] [address]Dr. Garima Pulliam LYMPH # 2.1 103/ul Normal 1.2-3.8 [facility] Comment on above: Performed By: #### C BC ####[facility] Vxuoxeyuqw[address] [place], [place] [address]Dr. Garima Pulliam Lymphocytes/100 WBC (Bld) 24.2 % Normal 20.5-60.0 [facility] Comment on above: Performed By: #### C BC ####[facility] Hblgckexwz[address] [place], [place] [address]Dr. Garima Pulliam MANUAL DIFF REQ NO Normal [facility] Comment on above: Performed By: #### C BC ####[facility] Pbvdivgvyw9[address] [place], [place] [address]Dr. Garima Pulliam MCH (RBC) [Entitic mass] 30.2 pg Normal 25.9-34.0 The [facility] Comment on above: Performed By: #### C BC ####[facility] Lsefoqfixs[address] [place] [address]Dr. Garima Pulliam MCHC (RBC) [Mass/Vol] 33.5 g/dL Normal 29.9-35.2 [facility] Comment on above: Performed By: #### C BC ####[facility] [address]qf[address] [place] [id number]. Garima Pulliam MCV (RBC) [Entitic vol] 90.1 fL Normal 80.0-94.0 The [facility] Comment on above: Performed By: #### C BC ####[facility] Ah[address]xkljin[address] [place] [address]Dr. Garima Pulliam MONO # 0.6 103/ul Normal 0.3-0.8 [facility] Comment on above: Performed By: #### C BC ####[facility] Gbupcixcmx[address] [place] [address]Dr. Garima Heraclio Monocytes/100 WBC (Bld) 7.4 % Normal 1.7-12.0 [facility] Comment on above: Performed By: #### C BC ####[facility] Yeayiyyoix104[address] [place], [place] [address]Dr. Gairma Pulliam NEUT # 5.6 103/ul Normal 1.4-6.5 [facility] Comment on above: Performed By: #### C BC ####[facility] Kvxkrvapue[address] [place], [place] [address]Dr. Garima Heraclio Neutrophils/100 WBC (Bld) 65.2 % Normal 43.0-75.0 [facility] Comment on above: Performed By: #### C BC ####[facility] Qxfsgbqmdd[address] [place], [place] [address]Dr. Garima Heraclio Platelet mean volume (Bld) [Entitic vol] 8.7 fL Critically low 9.5-13.5 [facility] Comment on above: Performed By: #### C BC ####[facility] Ziggtbduld[address] [place], [place] [address]Dr. Garima Heraclio PLT 195 103/ul Normal 150-450 [facility] Comment on above: Performed By: #### C BC ####[facility] [address]phej[address] [place] [address]Dr. Garima Pulliam RBC 4.64 106/ul Critically low 4.70-6.10 [facility] Comment on above: Performed By: #### C BC ####[facility] Ixryuipool[address] [place] [address]Dr. Garima Pulliam WBC 8.6 103/ul Normal 4.0-11.0 [facility] Comment on above: Performed By: #### C BC ####[facility] Cglduvcosp[address] [place] [address]Dr. Garima Pulliam PROF CHEM 8 (BAS METB)on Anion gap [Moles/Vol] 6.7 mmol/L Normal [facility] Comment on above: Performed By: #### B WAISTLINE JOINER, BMP, HSTROPN ####[facility] Kgnvhplpfj[address] [place], [place] [address]Dr. Garima Pulliam Calcium [Mass/Vol] 8.8 mg/dL Normal 8.5-10.1 [facility] Comment on above: Performed By: #### B WAISTLINE JOINER, BMP, HSTROPN ####[facility] Gyvwkjvarr42[address] [place], [place] [address]Dr. Garima Pulliam Chloride [Moles/Vol] 106 mmol/L Normal 98-107 [facility] Comment on above: Performed By: #### B WAISTLINE JOINER, BMP, HSTROPN ####[facility] Tzlwjbrqcf[address] [place], [place] [address]Dr. Garima Pulliam CO2 [Moles/Vol] 31.4 mmol/L Normal 21.0-32.0 [facility] Comment on above: Performed By: #### B WAISTLINE JOINER, BMP, HSTROPN ####[facility] Cjhpwgamzq[address] [place], [place] [address]Dr. Garima Pulliam Creatinine [Mass/Vol] 0.75 mg/dL Normal 0.70-1.30 [facility] Comment on above: Performed By: #### B WAISTLINE JOINER, BMP, HSTROPN ####[facility] Ibvbibtpxp[address] [place], [place] [address]Dr. Garima Pulliam EGFR-AF AUSTRALIAN >60 Normal >=60 [facility] Comment on above: Performed By: #### B WAISTLINE JOINER, BMP, HSTROPN ####[facility] X[address]qiyk[address] [place] [address]Dr. Garima Pulliam EGFR-NON AF AUSTRALIAN >60 Normal >=60 [facility] Comment on above: Performed By: #### B WAISTLINE JOINER, BMP, HSTROPN ####[facility] Sienmtetdw[address] [place] [address]Dr. Garima Pulliam Glucose [Mass/Vol] 161 mg/dL Critically high 74-106 T [facility] Comment on above: Performed By: #### B WAISTLINE JOINER, BMP, HSTROPN ####[facility] Lrydkxvnwj[address] [place] [address]Dr. Garima Pulliam Potassium [Moles/Vol] 4.1 mmol/L Normal 3.5-5.1 [facility] Comment on above: Performed By: #### B WAISTLINE JOINER, BMP, HSTROPN ####[facility] Rszhxzpvuu[address] [place] [address]Dr. Garima Pulliam Sodium [Moles/Vol] 140 mmol/L Normal 136-145 [facility] Comment on above: Performed By: #### B WAISTLINE JOINER, BMP, HSTROPN ####[facility] Ceiyjjuyvk[address] [place] [address]Dr. Garima Pulliam Urea nitrogen [Mass/Vol] 7.0 mg/dL Normal 7.0-18.0 [facility] Comment on above: Performed By: #### B WAISTLINE JOINER, BMP, HSTROPN ####[facility] Huwrbzpsme[address] [place] [address]Dr. Garima Pulliam Urea nitrogen/Creatinine [Mass ratio] 9.3 mg/mg Normal [facility] Comment on above: Performed By: #### B WAISTLINE JOINER, BMP, HSTROPN ####[facility] Znrfmbstvf[address] [place] [address]Dr. Garima Pulliam TROPONIN, HIGH SENSITIVITYon 03-16-2023 HSTROP 9.7 pg/mL Normal 4.0-76.1 [facility] Comment on above: Result Comment: CUT- OFF POINTS HAVE BEEN ESTABLISHED BASED ON THE FOURTH UNIVERSAL DEFINITIONS OF MYOCARDIALINFARCTION. THE UPPER REFERENCE LIMIT (URL) OF TROPONIN, DEFINED THE 99TH PERCENTILE OFcTnI DISTRIBUTION IN A REFERENCE POPULATION, HAS BEEN CONFIRMED THE DECISION THRESHOLDFOR DC DIAGNOSIS. Performed By: #### B WAISTLINE JOINER, BMP, HSTROPN ####[facility] Qexpaitmtp[address] [place] [address]Dr. Garima Pulliam XR CHEST 1 Von 03-16-2023 XR CHEST 1 V Normal [facility] BNPon 03-06-2023 Natriuretic peptide B (Bld) [Mass/Vol] 111.0 pg/mL Normal <=900.0 [facility] Comment on above: Performed By: #### C MP, BNP, CK ####[facility] Ogdnljecwd[address] [place], [place] [address]Dr. Garima Pulliam CBC AUTO DIFFon 03-06-2023 BASO # 0.0 103/ul Normal 0.0-0.1 [facility] Comment on above: Performed By: #### C BC ####[facility] C[address]zxpzeqh[address] [place], [place] [address]Dr. Garima Pulliam Basophils/100 WBC (Bld) 0.2 % Normal 0.2-2.0 [facility] Comment on above: Performed By: #### C BC ####[facility] Strxgxdjsz[address] [place], [place] [address]Dr. Garima Pulliam EO # 0.3 103/ul Normal 0.0-0.7 [facility] Comment on above: Performed By: #### C BC ####[facility] Yovhtyoeji[address] [place], [place] [address]Dr. Garima Pulliam Eosinophils/100 WBC (Bld) 3.5 % Normal 0.9-7.0 [facility] Comment on above: Performed By: #### C BC ####[facility] Kvcgdnjote[address] [place], [place] [address]Dr. Garima Pulliam Erythrocyte distribution width (RBC) [Ratio] 13.3 % Normal 11.0-15.0 The [facility] Comment on above: Performed By: #### C BC ####[facility] Uuycugskur[address] [place], [place] [address]Dr. Garima Pulliam Hematocrit (Bld) [Volume fraction] 43.7 % Normal 42.0-54.0 [facility] Comment on above: Performed By: #### C BC ####[facility] [facility] [address] [place] [address]DrAdalberto Pulliam Hemoglobin (Bld) [Mass/Vol] 14.7 g/dL Normal 14.0-18.0 [facility] Comment on above: Performed By: #### C BC ####[facility] Eowgpvnkdx[address] [place] [address]Dr. Garima Pulliam IG # 0.03 10e3/ul Normal 0.00-0.03 [facility] Comment on above: Performed By: #### C BC ####[facility] Zscpokbptf[address] [place], [place] [address]DrAdalberto Pulliam IG % 0.4 % Normal 0.0-0.5 [facility] Comment on above: Performed By: #### C BC ####[facility] Xzwnunkxbr[address] [place], [place] [address]DrAdalberto Pulliam LYMPH # 2.0 103/ul Normal 1.2-3.8 [facility] Comment on above: Performed By: #### C BC ####[facility] Hdwjiqenun[address] [place], [place] [address]DrAdalberto Pulliam Lymphocytes/100 WBC (Bld) 23.7 % Normal 20.5-60.0 [facility] Comment on above: Performed By: #### C BC ####[facility] Jfvueuslzd[address] [place] [address]DrAdalberto Pulliam MANUAL DIFF REQ NO Normal [facility] Comment on above: Performed By: #### C BC ####[facility] Ozqduyuwpv92[address] [place] [id number] Pulliam MCH (RBC) [Entitic mass] 30.1 pg Normal 25.9-34.0 [facility] Comment on above: Performed By: #### C BC ####[facility] Rlfqbpwfoj[address] [place] [id number] Pulliam MCHC (RBC) [Mass/Vol] 33.6 g/dL Normal 29.9-35.2 [facility] Comment on above: Performed By: #### C BC ####[facility] Lykqmztfwv[address] [place] [address]DrAdalberto Pulliam MCV (RBC) [Entitic vol] 89.4 fL Normal 80.0-94.0 [facility] Comment on above: Performed By: #### C BC ####[facility] Gqtaazptwq24[address] [place] [address]DrAdalberto Pulliam MONO # 0.8 103/ul Normal 0.3-0.8 [facility] Comment on above: Performed By: #### C BC ####[facility] Hgjhefjdmi[address] [place], [place] [address]Dr. Garima Pulliam Monocytes/100 WBC (Bld) 9.0 % Normal 1.7-12.0 [facility] Comment on above: Performed By: #### C BC ####[facility] Inubvjnpab[address] [place], [place] [address]Dr. Garima Pulliam NEUT # 5.4 103/ul Normal 1.4-6.5 [facility] Comment on above: Performed By: #### C BC ####[facility] Xtshsxxysz[address] [place], [place] [address]Dr. Garima Pulliam Neutrophils/100 WBC (Bld) 63.2 % Normal 43.0-75.0 [facility] Comment on above: Performed By: #### C BC ####[facility] Easctyixec[address] [place], [place] [address]DrAdalberto Pulliam Platelet mean volume (Bld) [Entitic vol] 9.0 fL Critically low 9.5-13.5 [facility] Comment on above: Performed By: #### C BC ####[facility] Zpklzbyfgg[address] [place], [place] [address]Dr. Garima Pulliam PLT 218 103/ul Normal 150-450 [facility] Comment on above: Performed By: #### C BC ####[facility] Fbwghptvej[address] [place] [id number]. Garima Pulliam RBC 4.89 106/ul Normal 4.70-6.10 [facility] Comment on above: Performed By: #### C BC ####[facility] Ixoeloiqxr[address] [place] [address]Dr. Garima Pulliam WBC 8.5 103/ul Normal 4.0-11.0 [facility] Comment on above: Performed By: #### C BC ####[facility] Lnbfcvpjyv[address] [place] [address]Dr. Garima Pulliam CPKon 03-06-2023 CK [Catalytic activity/Vol] 191 U/L Normal 39-308 [facility] Comment on above: Performed By: #### C MP, BNP, CK ####[facility] Onioofduuh[address] [place] [address]Dr. Garima Pulliam PROF 14(COMP METB)on 023 Albumin [Mass/Vol] 3.6 g/dL Normal 3.4-5.0 [facility] Comment on above: Performed By: #### C MP, BNP, CK ####[facility] Tevczxsoqn[address] [place] [address]Dr. Garima Pulliam Albumin/Globulin [Mass ratio] 1.2 {ratio} Normal [facility] Comment on above: Performed By: #### C MP, BNP, CK ####[facility] Tmlzewtpgh[address] [place] [address]Dr. Garima Pulliam ALP [Catalytic activity/Vol] 91 U/L Normal 46-116 [facility] Comment on above: Performed By: #### C MP, BNP, CK ####[facility] Xydcteyrgv15[address] [place] [address]Dr. Garima Pulliam ALT [Catalytic activity/Vol] 33 U/L Normal 16-63 [facility] Comment on above: Performed By: #### C MP, BNP, CK ####[facility] Gyivselcwy65[address] [place] [address]Dr. Garima Pulliam Anion gap [Moles/Vol] 10.3 mmol/L Normal [facility] Comment on above: Performed By: #### C MP, BNP, CK ####[facility] Pgwilywilt[address] [place] [address]Dr. Garima Pulliam AST [Catalytic activity/Vol] 17 U/L Normal 15-37 [facility] Comment on above: Performed By: #### C MP, BNP, CK ####[facility] Tgjmacfxyz[address] [place] [address]Dr. Garima Pulliam Bilirubin [Mass/Vol] 0.4 mg/dL Normal 0.2-1.0 [facility] Comment on above: Performed By: #### C MP, BNP, CK ####[facility] Prunueakhg[address] [place], [place] [address]Dr. Garima Pulliam Calcium [Mass/Vol] 9.1 mg/dL Normal 8.5-10.1 [facility] Comment on above: Performed By: #### C MP, BNP, CK ####[facility] Adtfjiknjy[address] [place], [place] [address]Dr. Garima Pulliam Chloride [Moles/Vol] 102 mmol/L Normal 98-107 [facility] Comment on above: Performed By: #### C MP, BNP, CK ####[facility] Fjhvjsdjrv[address] [place], [place] [address]Dr. Garima Pulliam CO2 [Moles/Vol] 29.7 mmol/L Normal 21.0-32.0 [facility] Comment on above: Performed By: #### C MP, BNP, CK ####[facility] Zfuohyxweb[address] [place], [place] [address]Dr. Garima Pulliam Creatinine [Mass/Vol] 0.79 mg/dL Normal 0.70-1.30 [facility] Comment on above: Performed By: #### C MP, BNP, CK ####[facility] Gkcepgvdwj177[address] [place], [place] [address]Dr. Garima Pulliam EGFR-AF AUSTRALIAN >60 Normal >=60 [facility] Comment on above: Performed By: #### C MP, BNP, CK ####[facility] Dxxskuthwf225[address] [place], [place] [address]Dr. Garima Pulliam EGFR-NON AF AUSTRALIAN >60 Normal >=60 [facility] Comment on above: Performed By: #### C MP, BNP, CK ####[facility] Ymboaceigg[address] [place] [address]Dr. Garima Pulliam Globulin (S) [Mass/Vol] 3.0 g/dL Normal [facility] Comment on above: Performed By: #### C MP, BNP, CK ####[facility] Uazszcuvmx[address] [place] [address]Dr. Garima Pulliam Glucose [Mass/Vol] 202 mg/dL Critically high 74-106 [facility] Comment on above: Performed By: #### C MP, BNP, CK ####[facility] Utmcypxsgy5[address] [place] [address]Dr. Garima Pulliam Potassium [Moles/Vol] 4.0 mmol/L Normal 3.5-5.1 [facility] Comment on above: Performed By: #### C MP, BNP, CK ####[facility] Ptdsgudsxh[address] [place], [place] [address]Dr. Garima Pulliam Protein [Mass/Vol] 6.6 g/dL Normal 6.4-8.2 [facility] Comment on above: Performed By: #### C MP, BNP, CK ####[facility] Cxfvqxucuw[address] [place], [place] [address]Dr. Garima Pulliam Sodium [Moles/Vol] 138 mmol/L Normal 136-145 [facility] Comment on above: Performed By: #### C MP, BNP, CK ####[facility] Yvsqdeymbc134[address] [place], [place] [address]Dr. Garima Pulliam Urea nitrogen [Mass/Vol] 10.0 mg/dL Normal 7.0-18.0 [facility] Comment on above: Performed By: #### C MP, BNP, CK ####[facility] Uuluckneex[address] [place] [address]Dr. Garima Pulliam Urea nitrogen/Creatinine [Mass ratio] 12.7 mg/mg Normal [facility] Comment on above: Performed By: #### C MP, BNP, CK ####[facility] Xlrpupbcqm[address] [place] [address]Dr. Garima Pulliam US VERONICA DOP LEG BILon 023 US VERONICA DOP LEG BENOIT Normal [facility] CBC AUTO DIFFon 01-13-2023 BASO # 0.0 103/ul Normal 0.0-0.1 [facility] Comment on above: Performed By: #### C BC ####[facility] Potgxxiscr35[address] [place] [id number]. Chapisrenu Pulliam Basophils/100 WBC (Bld) 0.0 % Critically low 0.2-2.0 [facility] Comment on above: Performed By: #### C BC ####[facility] Ppbgeyusvr[address] [place], [place] [address]Dr. Garima Pulliam EO # 0.0 103/ul Normal 0.0-0.7 [facility] Comment on above: Performed By: #### C BC ####[facility] Zarenlxjud124[address] [place], [place] [address]Dr. Garima Pulliam Eosinophils/100 WBC (Bld) 0.0 % Critically low 0.9-7.0 [facility] Comment on above: Performed By: #### C BC ####[facility] Phokdhvqeo[address] [place], [place] [address]Dr. Garima Pulliam Erythrocyte distribution width (RBC) [Ratio] 13.2 % Normal 11.0-15.0 [facility] Comment on above: Performed By: #### C BC ####[facility] Mkeszibsup47[address] [place], [place] [address]Dr. Garima Pulliam Hematocrit (Bld) [Volume fraction] 46.7 % Normal 42.0-54.0 [facility] Comment on above: Performed By: #### C BC ####[facility] Qmtmulfcar9[address] [place], [place] [address]Dr. Garima Pulliam Hemoglobin (Bld) [Mass/Vol] 15.6 g/dL Normal 14.0-18.0 [facility] Comment on above: Performed By: #### C BC ####[facility] Jfyhatafxb6[address] [place], [place] [address]Dr. Garima Pulliam IG # 0.01 10e3/ul Normal 0.00-0.03 [facility] Comment on above: Performed By: #### C BC ####[facility] Njokkiiutn[address] [place] [id number]. Garima Pulliam IG % 0.2 % Normal 0.0-0.5 [facility] Comment on above: Performed By: #### C BC ####[facility] Hieuikivkh1076 [place] [id number]. Garima Pulliam LYMPH # 0.8 103/ul Critically low 1.2-3.8 [facility] Comment on above: Performed By: #### C BC ####[facility] Cjauhlkoyd3[address] [place] [id number]. Garima Pulliam Lymphocytes/100 WBC (Bld) 12.7 % Critically low 20.5-60.0 [facility] Comment on above: Performed By: #### C BC ####[facility] Akvfiisksv0187 [place] [id number]. Garima Pulliam MANUAL DIFF REQ NO Normal [facility] Comment on above: Performed By: #### C BC ####[facility] Erxkrfpvfk8073 [place] [id number]. Garima Pulliam MCH (RBC) [Entitic mass] 30.2 pg Normal 25.9-34.0 [facility] Comment on above: Performed By: #### C BC ####[facility] Ndkvejzfpg8546 [place] [id number]. Garima Pulliam MCHC (RBC) [Mass/Vol] 33.4 g/dL Normal 29.9-35.2 [facility] Comment on above: Performed By: #### C BC ####[facility] Plyjvkmndf9[address] [place] [id number]. Garima Pulliam MCV (RBC) [Entitic vol] 90.3 fL Normal 80.0-94.0 [facility] Comment on above: Performed By: #### C BC ####[facility] Faiexzlxfj586[address] [place] [id number]. Garima Pulliam MONO # 0.1 103/ul Critically low 0.3-0.8 [facility] Comment on above: Performed By: #### C BC ####[facility] Xjjmhlelav8417 [place] [id number]. Garima Pulliam Monocytes/100 WBC (Bld) 0.9 % Critically low 1.7-12.0 [facility] Comment on above: Performed By: #### C BC ####[facility] Hnlnlhmlyt3362 [place] [id number]. Garima Pulliam NEUT # 5.6 103/ul Normal 1.4-6.5 [facility] Comment on above: Performed By: #### C BC ####[facility] Dfmgtymetl05[address] [place] [address]Dr. Garima Pulliam Neutrophils/100 WBC (Bld) 86.2 % Critically high 43.0-75.0 [facility] Comment on above: Performed By: #### C BC ####[facility] Gwwjomxywi2185 [place] [address]Dr. Garima Pulliam Platelet mean volume (Bld) [Entitic vol] 9.1 fL Critically low 9.5-13.5 [facility] Comment on above: Performed By: #### C BC ####[facility] Zjbusmqqmu35[address] [place], [place] [address]Dr. Garima Pulliam PLT 169 103/ul Normal 150-450 [facility] Comment on above: Performed By: #### C BC ####[facility] Vynxmxagbm599[address] [place], [place] [address]Dr. Garima Pulliam RBC 5.17 106/ul Normal 4.70-6.10 [facility] Comment on above: Performed By: #### C BC ####[facility] Rowrvxzvwr[address] [place], [place] [address]Dr. Garima Pulliam WBC 6.5 103/ul Normal 4.0-11.0 [facility] Comment on above: Performed By: #### C BC ####[facility] Vmzhcumciz[address] [place], [place] [address]Dr. Garima Pulliam D-DIMERon 01-13-2023 D-DIMER 0.41 mg/L FEU Normal <=0.59 [facility] Comment on above: Performed By: #### D DIM ####[facility] Yvdjergcfe052[address] [place], [place] [address]Dr. Garima Pulliam D-DIMER COMMENTS SEE BELOW Normal [facility] Comment on [...] Performed By: #### D DIM ####[facility] Wuugyuijad74[address] [place], [place] [address]Dr. Garima Pulliam PROF 14(COMP METB)on 023 Albumin [Mass/Vol] 3.4 g/dL Normal 3.4-5.0 [facility] Comment on above: Performed By: #### C MP ####[facility] Czrroevwat[address] [place], [place] [address]Dr. Garima Pulliam Albumin/Globulin [Mass ratio] 1.3 {ratio} Normal [facility] Comment on above: Performed By: #### C MP ####[facility] Rngozngrzj35[address] [place], [place] [address]Dr. Garima Pulliam ALP [Catalytic activity/Vol] 83 U/L Normal 46-116 [facility] Comment on above: Performed By: #### C MP ####[facility] Mjyxrmzxkp76[address] [place], [place] [address]Dr. Garima Pulliam ALT [Catalytic activity/Vol] 25 U/L Normal 16-63 [facility] Comment on above: Performed By: #### C MP ####[facility] Twwongbvmw9[address] [place], [place] [address]Dr. Garima Pulliam Anion gap [Moles/Vol] 14.5 mmol/L Normal [facility] Comment on above: Performed By: #### C MP ####[facility] Yquldujexw455[address] [place], [place] [address]Dr. Garima Pulliam AST [Catalytic activity/Vol] 19 U/L Normal 15-37 [facility] Comment on above: Performed By: #### C MP ####[facility] Sziyeorvcn[address] [place], [place] [address]Dr. Garima Pulliam Bilirubin [Mass/Vol] 0.4 mg/dL Normal 0.2-1.0 [facility] Comment on above: Performed By: #### C MP ####[facility] Ytrhfcprey[address] [place], [place] [address]Dr. Garima Pulliam Calcium [Mass/Vol] 8.7 mg/dL Normal 8.5-10.1 [facility] Comment on above: Performed By: #### C MP ####[facility] Ebtftjatfq[address] [place], [place] [address]Dr. Garima Pulliam Chloride [Moles/Vol] 104 mmol/L Normal 98-107 [facility] Comment on above: Performed By: #### C MP ####[facility] Jnijbypsne[address] [place], [place] [address]Dr. Garima Pulliam CO2 [Moles/Vol] 24.5 mmol/L Normal 21.0-32.0 [facility] Comment on above: Performed By: #### C MP ####[facility] Qvsrclssnl[address] [place], [place] [address]Dr. Garima Pulliam Creatinine [Mass/Vol] 0.70 mg/dL Normal 0.70-1.30 [facility] Comment on above: Performed By: #### C MP ####[facility] Vwlsotzelv[address] [place], [place] [address]Dr. Garima Heraclio EGFR-AF AUSTRALIAN >60 Normal >=60 [facility] Comment on above: Performed By: #### C MP ####[facility] Hwdknnledm[address] [place], [place] [address]Dr. Garima Heraclio EGFR-NON AF AUSTRALIAN >60 Normal >=60 [facility] Comment on above: Performed By: #### C MP ####[facility] Nstaugssgk[address] [place], [place] [address]Dr. Garima Heraclio Globulin (S) [Mass/Vol] 2.6 g/dL Normal [facility] Comment on above: Performed By: #### C MP ####[facility] Esccqolqpi45[address] [place] [address]Dr. Garima Pulliam Glucose [Mass/Vol] 196 mg/dL Critically high 74-106 [facility] Comment on above: Performed By: #### C MP ####[facility] Xygzbsjvfa5106 [place] [address]Dr. Garima Pulliam Potassium [Moles/Vol] 4.0 mmol/L Normal 3.5-5.1 [facility] Comment on above: Performed By: #### C MP ####[facility] Ocijkhrpyp[address] [place] [address]Dr. Garima Pulliam Protein [Mass/Vol] 6.0 g/dL Critically low 6.4-8.2 [facility] Comment on above: Performed By: #### C MP ####[facility] Vvmoapsbko[address] [place], [place] [address]Dr. Garima Pulliam Sodium [Moles/Vol] 139 mmol/L Normal 136-145 [facility] Comment on above: Performed By: #### C MP ####[facility] Foaerpfwri46[address] [place], [place] [address]Dr. Garima Pulliam Urea nitrogen [Mass/Vol] 7.0 mg/dL Normal 7.0-18.0 [facility] Comment on above: Performed By: #### C MP ####[facility] Tjpxccbklm[address] [place], [place] [address]Dr. Garima Heraclio Urea nitrogen/Creatinine [Mass ratio] 10.0 mg/mg Normal [facility] Comment on above: Performed By: #### C MP ####[facility] Elquetwnwb85[address] [place], [place] [address]Dr. Chapisrenu Pulliam BNPon 01-12-2023 Natriuretic peptide B (Bld) [Mass/Vol] 141.0 pg/mL Normal <=900.0 [facility] Comment on above: Performed By: #### C MP, BNP, HSTROPN ####[facility] Cfefepqzwh[address] [place], [place] [address]Dr. Garima Heraclio CBC AUTO DIFFon 01-12-2023 BASO # 0.0 103/ul Normal 0.0-0.1 [facility] Comment on above: Performed By: #### C BC ####[facility] Chosbhgwmc[address] [place] [address]Dr. Garima Heraclio Basophils/100 WBC (Bld) 0.2 % Normal 0.2-2.0 [facility] Comment on above: Performed By: #### C BC ####[facility] Hhkzauedga[address] [place] [address]Dr. Garima Heraclio EO # 0.2 103/ul Normal 0.0-0.7 [facility] Comment on above: Performed By: #### C BC ####[facility] Bkoslglgck59[address] [place] [address]Dr. Garima Heraclio Eosinophils/100 WBC (Bld) 2.7 % Normal 0.9-7.0 [facility] Comment on above: Performed By: #### C BC ####[facility] Ofattrsjvj[address] [place], [place] [address]Dr. Garima Pulliam Erythrocyte distribution width (RBC) [Ratio] 13.3 % Normal 11.0-15.0 [facility] Comment on above: Performed By: #### C BC ####[facility] Vjdnhtfpat[address] [place], [place] [address]Dr. Garima Pulliam Hematocrit (Bld) [Volume fraction] 42.3 % Normal 42.0-54.0 [facility] Comment on above: Performed By: #### C BC ####[facility] Xchll[address] [place], [place] [address]Dr. Garima Pulliam Hemoglobin (Bld) [Mass/Vol] 14.3 g/dL Normal 14.0-18.0 The [facility] Comment on above: Performed By: #### C BC ####[facility] Abvsghcsj[address] [place], [place] [address]Dr. Garima Pulliam IG # 0.02 10e3/ul Normal 0.00-0.03 The [facility] Comment on above: Performed By: #### C BC ####[facility] [address] [place] [id number]. Garima Pulliam IG % 0.2 % Normal 0.0-0.5 The [facility] Comment on above: Performed By: #### C BC ####[facility] Nnlalkhzev[address] [place] [address]Dr. Garima Pulliam LYMPH # 2.6 103/ul Normal 1.2-3.8 The [facility] Comment on above: Performed By: #### C BC ####[facility] Cjgbreiciy[address] [place] [address]Dr. Garima Heraclio Lymphocytes/100 WBC (Bld) 29.6 % Normal 20.5-60.0 The [facility] Comment on above: Performed By: #### C BC ####[facility] Odflqiigsy[address] [place] [address]Dr. Garima Heraclio MANUAL DIFF REQ NO Normal The [facility] Comment on above: Performed By: #### C BC ####[facility] Jujwcppfjc[address] [place] [id number]. Garima Pulliam MCH (RBC) [Entitic mass] 30.2 pg Normal 25.9-34.0 The [facility] Comment on above: Performed By: #### C BC ####[facility] Fowtegznvg[address] [place] [id number]. Garima Pulliam MCHC (RBC) [Mass/Vol] 33.8 g/dL Normal 29.9-35.2 The [facility] Comment on above: Performed By: #### C BC ####[facility] Lveocrfmsu4[address] [place] [id number]. Garima Pulliam MCV (RBC) [Entitic vol] 89.2 fL Normal 80.0-94.0 The [facility] Comment on above: Performed By: #### C BC ####[facility] W[address] [place], [place] [address]Dr. Garima Heraclio MONO # 0.7 103/ul Normal 0.3-0.8 The [facility] Comment on above: Performed By: #### C BC ####[facility] [address]wnhuwsoys[address] [place] [id number]. Garima Pulliam Monocytes/100 WBC (Bld) 8.3 % Normal 1.7-12.0 The [facility] Comment on above: Performed By: #### C BC ####[facility] Qddjupsyen8[address] [place] [address]Dr. Garima Pulliam NEUT # 5.1 103/ul Normal 1.4-6.5 The [facility] Comment on above: Performed By: #### C BC ####[facility] Imdmxugxnq0944 [place] [address]Dr. Garima Pulliam Neutrophils/100 WBC (Bld) 59.0 % Normal 43.0-75.0 The [facility] Comment on above: Performed By: #### C BC ####[facility] Lisyoknpgr[address] [place] [address]Dr. Garima Pulliam Platelet mean volume (Bld) [Entitic vol] 8.7 fL Critically low 9.5-13.5 The [facility] Comment on above: Performed By: #### C BC ####[facility] Lbqjzebdka[address] [place] [id number]. Garima Pulliam PLT 182 103/ul Normal 150-450 The [facility] Comment on above: Performed By: #### C BC ####[facility] Mbfxvkbwbk8371 [place] [address]Dr. Garima Pulliam RBC 4.74 106/ul Normal 4.70-6.10 The [facility] Comment on above: Performed By: #### C BC ####[facility] Edhtnktklt3[address] [place] [id number]. Garima Pulliam WBC 8.7 103/ul Normal 4.0-11.0 The [facility] Comment on above: Performed By: #### C BC ####[facility] Tbiibtyujc[address] [place], [place] [address]Dr. Garima Pulliam Covid-19 PCR (CVDTB)on 12-25 SARS-CoV-2 (COVID-19) RNA MARIE+probe Ql (Unsp spec) Not detected Normal NOT DETECTED The [facility] Comment on above: Result Comment: When diagnostic [...] for this test is supported by the [employer] and Human Service's declaration that [...] Performed By: #### C VDTBH ####[facility] Qjmsbecgfi[address] [place] [address]Dr. Garima Pulliam PROF 14(COMP METB)on 023 Albumin [Mass/Vol] 3.6 g/dL Normal 3.4-5.0 [facility] Comment on above: Performed By: #### C MP, BNP, HSTROPN ####[facility] Zsefojhngq[address] [place] [address]Dr. Garima Pulliam Albumin/Globulin [Mass ratio] 1.5 {ratio} Normal [facility] Comment on above: Performed By: #### C MP, BNP, HSTROPN ####[facility] Xrkboohvkb[address] [place] [address]Dr. Garima Pulliam ALP [Catalytic activity/Vol] 79 U/L Normal 46-116 The [facility] Comment on above: Performed By: #### C MP, BNP, HSTROPN ####[facility] Mqdfaoviye[address] [place] [address]Dr. Garima Pulliam ALT [Catalytic activity/Vol] 27 U/L Normal 16-63 [facility] Comment on above: Performed By: #### C MP, BNP, HSTROPN ####[facility] Soitgjjgqc[address] [place] [address]Dr. Garima Pulliam Anion gap [Moles/Vol] 11.7 mmol/L Normal Th e [facility] Comment on above: Performed By: #### C MP, BNP, HSTROPN ####[facility] Csjluzwwin[address] [place] [address]Dr. Garima Pulliam AST [Catalytic activity/Vol] 21 U/L Normal 15-37 [facility] Comment on above: Performed By: #### C MP, BNP, HSTROPN ####[facility] Pjqrvypyor[address] [place], [place] [address]Dr. Garima Pulliam Bilirubin [Mass/Vol] 0.3 mg/dL Normal 0.2-1.0 [facility] Comment on above: Performed By: #### C MP, BNP, HSTROPN ####[facility] Iygurdffll[address] [place], [place] [address]Dr. Garima Pulliam Calcium [Mass/Vol] 8.9 mg/dL Normal 8.5-10.1 [facility] Comment on above: Performed By: #### C MP, BNP, HSTROPN ####[facility] Fgykxbsbhc[address] [place], [place] [address]Dr. Garima Pulliam Chloride [Moles/Vol] 107 mmol/L Normal 98-107 [facility] Comment on above: Performed By: #### C MP, BNP, HSTROPN ####[facility] Sjfocsnipe[address] [place], [place] [address]Dr. Garima Pulliam CO2 [Moles/Vol] 26.0 mmol/L Normal 21.0-32.0 The [facility] Comment on above: Performed By: #### C MP, BNP, HSTROPN ####[facility] Wzqjtzpuez[address] [place], [place] [address]Dr. Garima Pulliam Creatinine [Mass/Vol] 0.65 mg/dL Critically low 0.70-1.30 [facility] Comment on above: Performed By: #### C MP, BNP, HSTROPN ####[facility] Nmrxfwergp[address] [place], [place] [address]Dr. Garima Pulliam EGFR-AF AUSTRALIAN >60 Normal >=60 [facility] Comment on above: Performed By: #### C MP, BNP, HSTROPN ####[facility] Kfgkxxcszz[address] [place] [address]Dr. Garima Pulliam EGFR-NON AF AUSTRALIAN >60 Normal >=60 [facility] Comment on above: Performed By: #### C MP, BNP, HSTROPN ####[facility] Colokdpqrw[address] [place] [address]Dr. Garima Pulliam Globulin (S) [Mass/Vol] 2.4 g/dL Normal [facility] Comment on above: Performed By: #### C MP, BNP, HSTROPN ####[facility] Ltltienxcf[address] [place], [place] [address]Dr. Garima Pulliam Glucose [Mass/Vol] 85 mg/dL Normal 74-106 [facility] Comment on above: Performed By: #### C MP, BNP, HSTROPN ####[facility] Zwpzodtgwr[address] [place], [place] [address]Dr. Garima Pulliam Potassium [Moles/Vol] 3.7 mmol/L Normal 3.5-5.1 [facility] Comment on above: Performed By: #### C MP, BNP, HSTROPN ####[facility] Bnqpinjwwo[address] [place] [address]Dr. Garima Pulliam Protein [Mass/Vol] 6.0 g/dL Critically low 6.4-8.2 [facility] Comment on above: Performed By: #### C MP, BNP, HSTROPN ####[facility] Fyjxwiosao[address] [place], [place] [address]Dr. Garima Pulliam Sodium [Moles/Vol] 141 mmol/L Normal 136-145 The [facility] Comment on above: Performed By: #### C MP, BNP, HSTROPN ####[facility] Dozqtgjtfa4[address] [place] [address]Dr. Garima Pulliam Urea nitrogen [Mass/Vol] 5.0 mg/dL Critically low 7.0-18.0 [facility] Comment on above: Performed By: #### C MP, BNP, HSTROPN ####[facility] Zdsuxeksum[address] [place] [address]Dr. Garima Pulliam Urea nitrogen/Creatinine [Mass ratio] 7.7 mg/mg Normal The [facility] Comment on above: Performed By: #### C MP, BNP, HSTROPN ####[facility] Xcwajloyap[address] [place] [address]Dr. Garima Pulliam PROTIMEon 01-12-2023 INR Coag (PPP) [Relative time] 1.16 {INR} Normal The [facility] Comment on above: Performed By: #### P TT, PT ####[facility] Krsxrvffkv[address] [place], [place] [address]Dr. Garima Pulliam INR GUIDELINES SEE BELOW Normal The [facility] Comment on above: Result Comment: WESLEY RED INR: 2.0 - 3.0 CONDITIONS NOT LISTED BELOW 2.5 - 3.5 FOR PROSTHETIC HEART VALVE REPLACEMENT 2.5 - 3.5 RECURRENT THROMBOSIS Performed By: #### P TT, PT ####[facility] Regamwatug[address] [place], [place] [address]Dr. Garima Pulliam PT Coag (PPP) [Time] 12.2 s Critically high 9.0-11.6 The [facility] Comment on above: Performed By: #### P TT, PT ####[facility] Ejxpsijmau[address] [place], [place] [address]Dr. Garima Pulliam PTTon 01-12-2023 aPTT Coag (Bld) [Time] 29.1 s Normal 22.3-36.2 The [facility] Comment on above: Performed By: #### P TT, PT ####[facility] Rlksmvozos[address] [place], [place] [address]Dr. Garima Pulliam TROPONIN, HIGH SENSITIVITYon 01-12-2023 HSTROP 10.3 pg/mL Normal 4.0-76.1 The [facility] Comment on above: Result Comment: CUT- OFF POINTS HAVE BEEN ESTABLISHED BASED ON THE FOURTH UNIVERSAL DEFINITIONS OF MYOCARDIALINFARCTION. THE UPPER REFERENCE LIMIT (URL) OF TROPONIN, DEFINED THE 99TH PERCENTILE OFcTnI DISTRIBUTION IN A REFERENCE POPULATION, HAS BEEN CONFIRMED THE DECISION THRESHOLDFOR DC DIAGNOSIS. Performed By: #### H STROPN ####[facility] Zxtdtycchl[address] [place] [address]Dr. Garima Pulliam HSTROP 9.2 pg/mL Normal 4.0-76.1 [facility] Comment on above: Result Comment: CUT- OFF POINTS HAVE BEEN ESTABLISHED BASED ON THE FOURTH UNIVERSAL DEFINITIONS OF MYOCARDIALINFARCTION. THE UPPER REFERENCE LIMIT (URL) OF TROPONIN, DEFINED THE 99TH PERCENTILE OFcTnI DISTRIBUTION IN A REFERENCE POPULATION, HAS BEEN CONFIRMED THE DECISION THRESHOLDFOR DC DIAGNOSIS. Performed By: #### C MP, BNP, HSTROPN ####[facility] Reblecwoil[address] [place] [address]Dr. Garima Pulliam XR CHEST 1 Von 01-12-2023 XR CHEST 1 V Normal The [facility] XR CHEST 1 Von 01-01-2023 XR CHEST 1 V Normal The [facility] CARDIAC NASH 3-6on 3 CK [Catalytic activity/Vol] 196 U/L Normal 39-308 [facility] Comment on above: Performed By: #### C MREP ####[facility] X[address]zcmtdbbi[address] [place] [address]Dr. Garima Pulliam CK.MB [Mass/Vol] 7.41 ng/mL Critically high <=3.60 [facility] Comment on above: Performed By: #### C MREP ####[facility] Vxcjcpwqkx[address] [place] [address]Dr. Garima Pulliam HSTROP 10.3 pg/mL Normal 4.0-76.1 The [facility] Comment on above: Result Comment: CUT- OFF POINTS HAVE BEEN ESTABLISHED BASED ON THE FOURTH UNIVERSAL DEFINITIONS OF MYOCARDIALINFARCTION. THE UPPER REFERENCE LIMIT (URL) OF TROPONIN, DEFINED THE 99TH PERCENTILE OFcTnI DISTRIBUTION IN A REFERENCE POPULATION, HAS BEEN CONFIRMED THE DECISION THRESHOLDFOR DC DIAGNOSIS. Performed By: #### C MREP ####[facility] Hagzbarpyr[address] [place] [id number]. Garima Pulliam XR CHEST 1 Von 12-26-2022 XR CHEST 1 V Normal The [facility] BNPon 12-25-2022 Natriuretic peptide B (Bld) [Mass/Vol] 98.0 pg/mL Normal <=900.0 The [facility] Comment on above: Performed By: #### B MARVIN FRENCH CMADM ####[facility] Rlkbrjskaq[address] [place] [address]Dr. Garima Pulliam CARDIAC NASH ADMITon 023 CK [Catalytic activity/Vol] 208 U/L Normal 39-308 The [facility] Comment on above: Performed By: #### B MARVIN FRENCH CMADM ####[facility] Ugjxraveza[address] [place] [address]Dr. Garima Pulliam CK.MB [Mass/Vol] 7.63 ng/mL Critically high <=3.60 The [facility] Comment on above: Performed By: #### B MARVIN FRENCH CMADM ####[facility] [address]znlswgkz[address] [place], [place] [address]Dr. Garima Pulliam HSTROP 8.8 pg/mL Normal 4.0-76.1 The [facility] Comment on above: Result Comment: CUT- OFF POINTS HAVE BEEN ESTABLISHED BASED ON THE FOURTH UNIVERSAL DEFINITIONS OF MYOCARDIALINFARCTION. THE UPPER REFERENCE LIMIT (URL) OF TROPONIN, DEFINED THE 99TH PERCENTILE OFcTnI DISTRIBUTION IN A REFERENCE POPULATION, HAS BEEN CONFIRMED THE DECISION THRESHOLDFOR DC DIAGNOSIS. Performed By: #### B MARVIN FRENCH CMADM ####[facility] [address]qobtmqqr[address] [place], [place] [address]Dr. Garima Pulliam DORIS 83 ng/mL Normal 16-96 The [facility] Comment on above: Performed By: #### B MARVIN FRENCH CMADM ####[facility] Xomglzygbm[address] [place], [place] [address]Dr. Garima Pulliam CBC AUTO DIFFon 12-25-2022 BASO # 0.0 103/ul Normal 0.0-0.1 The [facility] Comment on above: Performed By: #### C BC ####[facility] Wayrwvejag[address] [place], [place] [address]Dr. Garima Pulliam Basophils/100 WBC (Bld) 0.0 % Critically low 0.2-2.0 The [facility] Comment on above: Performed By: #### C BC ####[facility] Mdqpqtbzud[address] [place] [address]Dr. Garima Pulliam EO # 0.0 103/ul Normal 0.0-0.7 The [facility] Comment on above: Performed By: #### C BC ####[facility] Mewtsussyh[address] [place], [place] [address]Dr. Garima Pulliam Eosinophils/100 WBC (Bld) 0.7 % Critically low 0.9-7.0 [facility] Comment on above: Performed By: #### C BC ####[facility] Uuwommvemo[address] [place], [place] [address]Dr. Garima Pulliam Erythrocyte distribution width (RBC) [Ratio] 13.4 % Normal 11.0-15.0 [facility] Comment on above: Performed By: #### C BC ####[facility] Djkdhywrzq[address] [place], [place] [address]Dr. Garima Pulliam Hematocrit (Bld) [Volume fraction] 42.9 % Normal 42.0-54.0 [facility] Comment on above: Performed By: #### C BC ####[facility] Ljfmsmtbqk[address] [place], [place] [address]Dr. Garima Pulliam Hemoglobin (Bld) [Mass/Vol] 14.4 g/dL Normal 14.0-18.0 [facility] Comment on above: Performed By: #### C BC ####[facility] Jldofyilst[address] [place], [place] [address]Dr. Garima Pulliam IG # 0.00 10e3/ul Normal 0.00-0.03 The [facility] Comment on above: Performed By: #### C BC ####[facility] Ubrnjlsbzv[address] [place], [place] [address]Dr. Garima Pulliam IG % 0.0 % Normal 0.0-0.5 The [facility] Comment on above: Performed By: #### C BC ####[facility] Nljnyiziwp[address] [place], [place] [address]Dr. Chapisrenu Pulliam LYMPH # 2.4 103/ul Normal 1.2-3.8 The [facility] Comment on above: Performed By: #### C BC ####[facility] Twldmcopra[address] [place] [id number]. Garima Pulliam Lymphocytes/100 WBC (Bld) 29.2 % Normal 20.5-60.0 [facility] Comment on above: Performed By: #### C BC ####[facility] Mxxryvzoav8114 [place] [address]Dr. Garima Pulliam MANUAL DIFF REQ NO Normal [facility] Comment on above: Performed By: #### C BC ####[facility] Zoxgghkxsw9[address] [place] [address]Dr. Garima Pulliam MCH (RBC) [Entitic mass] 30.7 pg Normal 25.9-34.0 [facility] Comment on above: Performed By: #### C BC ####[facility] [address]yaqwodru[address] [place], [place] [address]Dr. Garima Pulliam MCHC (RBC) [Mass/Vol] 33.6 g/dL Normal 29.9-35.2 [facility] Comment on above: Performed By: #### C BC ####[facility] [address]mid[address] [place], [place] [address]Dr. Garima Pulliam MCV (RBC) [Entitic vol] 91.5 fL Normal 80.0-94.0 [facility] Comment on above: Performed By: #### C BC ####[facility] S[address]lthswq[address] [place], [place] [address]Dr. Garima Pulliam MONO # 0.0 103/ul Critically low 0.3-0.8 The [facility] Comment on above: Performed By: #### C BC ####[facility] Hmjjtuxqhh[address] [place] [address]Dr. Garima Pulliam Monocytes/100 WBC (Bld) 8.0 % Normal 1.7-12.0 The [facility] Comment on above: Performed By: #### C BC ####[facility] Mfhxrdxicv[address] [place], [place] [address]Dr. Graima Pulliam NEUT # 5.1 103/ul Normal 1.4-6.5 The [facility] Comment on above: Performed By: #### C BC ####[facility] Ljcgtwihei[address] [place], [place] [address]Ur. Garima Pulliam Neutrophils/100 WBC (Bld) 62.8 % Normal 43.0-75.0 [facility] Comment on above: Performed By: #### C BC ####[facility] Osvmdzrbmd8[address] [place], [place] [address]Yh. Garima Pulliam Platelet mean volume (Bld) [Entitic vol] 8.6 fL Critically low 9.5-13.5 [facility] Comment on above: Performed By: #### C BC ####[facility] Rhsjmpshek[address] [place] [id number]. Garima Pulliam PLT 200 103/ul Normal 150-450 The [facility] Comment on above: Performed By: #### C BC ####[facility] Epstjyjolg45[address] [place] [address]Dr. Garima Pulliam RBC 4.69 106/ul Critically low 4.70-6.10 [facility] Comment on above: Performed By: #### C BC ####[facility] Omvajmakqe[address] [place], [place] [address]Eo. Garima Pulliam WBC 8.2 103/ul Normal 4.0-11.0 The [facility] Comment on above: Performed By: #### C BC ####[facility] Uijcrxkafa[address] [place], [place] [address]Jj. Garima Pulliam [facility]on SARS-CoV-2 (COVID-19) RNA MARIE+probe Ql (Unsp spec) Not detected Normal NOT DETECTED The [facility] Comment on above: Result Comment: When diagnostic [...] for this test is supported by the [employer] and Human Service's declaration that [...] Performed By: #### C VDTBH ####[facility] [address] [place] [address]. Garima Pulliam INFLUENZA A AND B AGon 12-25 INFLUANEGH SEE BELOW Normal [facility] Comment on above: Result Comment: Nega tive for Flu A protein angiten. Infection due to Flu A cannot be ruled out. Flu A angiten in the sample may be below the detection limit of the test. Performed By: #### I NFLUAB ####[facility] [address] [place] [address]. Garima Pulliam INFLUBNEGH SEE BELOW Normal [facility] Comment on above: Result Comment: Nega tive for Flu B protein antigen. Infection due to Flu B cannot be ruled out. Flu B antigen in the sample may be below the detection limit of the test. Performed By: #### I NFLUAB ####[facility] Vysgqfdvwa[address] [place], [place] [address]Dr. renu [facility] INFLUENZA A AG Negative Normal NEGATIVE SEE COMMENT [facility] Comment on above: Performed By: #### I NFLUAB ####[facility] Oarmofjjvk[address] [place], [place] [address]Dr. renu [facility] INFLUENZA B AG Negative Normal NEGATIVE SEE COMMENT [facility] Comment on above: Performed By: #### I NFLUAB ####[facility] Isw[address]ksfw[address] [place] [address]. renu Pulliam PROF CHEM 8 (BAS METB)on Anion gap [Moles/Vol] 11.1 mmol/L Normal [facility] Comment on above: Performed By: #### B WAISTLINE JOINER, BMP, CMADM ####[facility] Heuszlqlze[address] [place], [place] [address]Dr. Garima Pulliam Calcium [Mass/Vol] 8.5 mg/dL Normal 8.5-10.1 [facility] Comment on above: Performed By: #### B WAISTLINE JOINER, MARVIN, CMADM ####[facility] [address] [place] [address]Dr. Garima Pulliam Chloride [Moles/Vol] 106 mmol/L Normal 98-107 [facility] Comment on above: Performed By: #### B WAISTLINE JOINER, MARVIN, CMADM ####[facility] Aior[address]qmdf[address] [place] [address]Dr. Garima Pulliam CO2 [Moles/Vol] 27.4 mmol/L Normal 21.0-32.0 [facility] Comment on above: Performed By: #### B WAISTLINE JOINER, MARVIN, CMADM ####[facility] Aaflvjzzpg[address] [place] [address]Dr. Garima Pulliam Creatinine [Mass/Vol] 0.65 mg/dL Critically low 0.70-1.30 [facility] Comment on above: Performed By: #### B WAISTLINE JOINER, MARVIN, CMADM ####[facility] Waexdwcska[address] [place] [address]Dr. Garima Pulliam EGFR-AF AUSTRALIAN >60 Normal >=60 [facility] Comment on above: Performed By: #### B WAISTLINE JOINER, BMP, CMADM ####[facility] Srgjhgqamw[address] [place] [address]Dr. Garima Pulliam EGFR-NON AF AUSTRALIAN >60 Normal >=60 [facility] Comment on above: Performed By: #### B WAISTLINE JOINER, BMP, CMADM ####[facility] Azlrnztogm[address] [place] [address]Dr. Garima Pulliam Glucose [Mass/Vol] 140 mg/dL Critically high 74-106 [facility] Comment on above: Performed By: #### B WAISTLINE JOINER, BMP, CMADM ####[facility] Evjygqteyy[address] [place] [address]Dr. Garima Pulliam Potassium [Moles/Vol] 3.5 mmol/L Normal 3.5-5.1 [facility] Comment on above: Performed By: #### B WAISTLINE JOINER, BMP, CMADM ####[facility] Ows[address]rctxa[address] [place] [address]Dr. Garima Pulliam Sodium [Moles/Vol] 141 mmol/L Normal 136-145 [facility] Comment on above: Performed By: #### B WAISTLINE JOINER, BMP, CMADM ####[facility] Luvhhoalaf[address] [place] [address]Dr. Garima Pulliam Urea nitrogen [Mass/Vol] 8.0 mg/dL Normal 7.0-18.0 [facility] Comment on above: Performed By: #### B WAISTLINE JOINER, BMP, CMADM ####[facility] Ecwilpskzp[address] [place] [address]Dr. Garima Pulliam Urea nitrogen/Creatinine [Mass ratio] 12.3 mg/mg Normal [facility] Comment on above: Performed By: #### B WAISTLINE JOINER, BMP, CMADM ####[facility] Mojkspmzkj[address] [place], [place] [address]Dr. Garima Pulliam CARDIAC NASH ADMITon 023 CK [Catalytic activity/Vol] 165 U/L Normal 39-308 [facility] Comment on above: Performed By: #### B DAVID, CMADM ####[facility] Heswdqlofb[address] [place], [place] [address]Dr. Garima Pulliam CK.MB [Mass/Vol] 6.48 ng/mL Critically high <=3.60 [facility] Comment on above: Performed By: #### B MP, CMADM ####[facility] Cgpnzrdacu[address] [place], [place] [address]Dr. Garima Pullaim HSTROP 11.7 pg/mL Normal 4.0-76.1 [facility] Comment on above: Result Comment: CUT- OFF POINTS HAVE BEEN ESTABLISHED BASED ON THE FOURTH UNIVERSAL DEFINITIONS OF MYOCARDIALINFARCTION. THE UPPER REFERENCE LIMIT (URL) OF TROPONIN, DEFINED THE 99TH PERCENTILE OFcTnI DISTRIBUTION IN A REFERENCE POPULATION, HAS BEEN CONFIRMED THE DECISION THRESHOLDFOR DC DIAGNOSIS. Performed By: #### B MP, CMADM ####[facility] Hhvtjbxklm[address] [place], [place] [address]Dr. Garima Pulliam DORIS 83 ng/mL Normal 16-96 [facility] Comment on above: Performed By: #### B MP, CMADM ####[facility] Tepjbhyrcv[address] [place] [address]Dr. Garima Pulliam CBC AUTO DIFFon 12-10-2022 BASO # 0.0 103/ul Normal 0.0-0.1 The [facility] Comment on above: Performed By: #### C BC ####[facility] Yquswvylq[address] [place], [place] [address]Dr. Garima Pulliam Basophils/100 WBC (Bld) 0.3 % Normal 0.2-2.0 The [facility] Comment on above: Performed By: #### C BC ####[facility] Onbzoiopkb[address] [place], [place] [address]Dr. Garima Pulliam EO # 0.1 103/ul Normal 0.0-0.7 The [facility] Comment on above: Performed By: #### C BC ####[facility] Zsaekeupso[address] [place], [place] [address]Dr. Garima Pulliam Eosinophils/100 WBC (Bld) 0.4 % Critically low 0.9-7.0 The [facility] Comment on above: Performed By: #### C BC ####[facility] Alayrnycha[address] [place], [place] [address]Dr. Garima Pulliam Erythrocyte distribution width (RBC) [Ratio] 13.2 % Normal 11.0-15.0 The [facility] Comment on above: Performed By: #### C BC ####[facility] Pvvdxacauq[address] [place], [place] [address]Dr. Garima Pulliam Hematocrit (Bld) [Volume fraction] 42.4 % Normal 42.0-54.0 The [facility] Comment on above: Performed By: #### C BC ####[facility] Elbjqpufge[address] [place], [place] [address]Dr. Garima Pulliam Hemoglobin (Bld) [Mass/Vol] 14.4 g/dL Normal 14.0-18.0 The [facility] Comment on above: Performed By: #### C BC ####[facility] Ptz[address]fgafe[address] [place] [address]Dr. Garima Heraclio IG # 0.05 10e3/ul Critically high 0.00-0.03 [facility] Comment on above: Performed By: #### C BC ####[facility] Rxyzmvotqc86[address] [place] [address]Dr. Garima Heraclio IG % 0.4 % Normal 0.0-0.5 The [facility] Comment on above: Performed By: #### C BC ####[facility] Jscxwnsggm[address] [place] [address]Dr. Garima Pulliam LYMPH # 0.8 103/ul Critically low 1.2-3.8 The [facility] Comment on above: Performed By: #### C BC ####[facility] Nxfqgyenjc[address] [place], [place] [address]Dr. Garima Pulliam Lymphocytes/100 WBC (Bld) 6.5 % Critically low 20.5-60.0 The [facility] Comment on above: Performed By: #### C BC ####[facility] Pywwjhloxc[address] [place], [place] [address]Dr. Chapisrenu Pulliam MANUAL DIFF REQ NO Normal [facility] Comment on above: Performed By: #### C BC ####[facility] Jknutxkmyt[address] [place], [place] [address]Dr. Garima Pulliam MCH (RBC) [Entitic mass] 30.5 pg Normal 25.9-34.0 The [facility] Comment on above: Performed By: #### C BC ####[facility] K[address]ksxkftk[address] [place] [address]Dr. Garima Heraclio MCHC (RBC) [Mass/Vol] 34.0 g/dL Normal 29.9-35.2 The [facility] Comment on above: Performed By: #### C BC ####[facility] Dsmrlndrup[address] [place], [place] [address]Dr. Garima Heraclio MCV (RBC) [Entitic vol] 89.8 fL Normal 80.0-94.0 The [facility] Comment on above: Performed By: #### C BC ####[facility] X[address]juvofh[address] [place], [place] [address]Dr. Garima Pulliam MONO # 0.2 103/ul Critically low 0.3-0.8 The [facility] Comment on above: Performed By: #### C BC ####[facility] Stiolkjlwp[address] [place] [address]Dr. Garima Pulliam Monocytes/100 WBC (Bld) 2.0 % Normal 1.7-12.0 The [facility] Comment on above: Performed By: #### C BC ####[facility] Fvlbbwdkxq[address] [place] [address]Dr. Garima Pulliam NEUT # 10.5 103/ul Critically high 1.4-6.5 [facility] Comment on above: Performed By: #### C BC ####[facility] Iwomnvxukm[address] [place], [place] [address]Dr. Garima Pulliam Neutrophils/100 WBC (Bld) 90.4 % Critically high 43.0-75.0 The [facility] Comment on above: Performed By: #### C BC ####[facility] Qyexcggkyt[address] [place] [address]Dr. Garima Pulliam Platelet mean volume (Bld) [Entitic vol] 9.4 fL Critically low 9.5-13.5 The [facility] Comment on above: Performed By: #### C BC ####[facility] Jpnqecvguu[address] [place] [address]Dr. Garima Pulliam PLT 198 103/ul Normal 150-450 The [facility] Comment on above: Performed By: #### C BC ####[facility] Kgcarsvihg[address] [place], [place] [address]Dr. Garima Pulliam RBC 4.72 106/ul Normal 4.70-6.10 The [facility] Comment on above: Performed By: #### C BC ####[facility] Yvw[address]kuvp[address] [place], [place] [address]Dr. Garima Pulliam WBC 11.6 103/ul Critically high 4.0-11.0 [facility] Comment on above: Performed By: #### C BC ####[facility] Arwldamewk[address] [place], [place] [address]Dr. Garima Pulliam PROF CHEM 8 (BAS METB)on Anion gap [Moles/Vol] 11.3 mmol/L Normal [facility] Comment on above: Performed By: #### B NANCY HERNANDEZ ####[facility] Edzkrcfynp[address] [place] [address]Dr. Garima Pulliam Calcium [Mass/Vol] 8.9 mg/dL Normal 8.5-10.1 [facility] Comment on above: Performed By: #### B DAVDI, NANCY ####[facility] Qctearouaj4[address] [place] [address]Dr. Garima Pulliam Chloride [Moles/Vol] 103 mmol/L Normal 98-107 [facility] Comment on above: Performed By: #### NANCY Larkin MP ####[facility] Ibudvpmhnz[address] [place], [place] [address]Dr. Garima Pulliam CO2 [Moles/Vol] 28.2 mmol/L Normal 21.0-32.0 [facility] Comment on above: Performed By: #### NANCY Larkin MP ####[facility] Rhhtnxcdlq[address] [place] [address]Dr. Chapisrenu Pulliam Creatinine [Mass/Vol] 0.60 mg/dL Critically low 0.70-1.30 [facility] Comment on above: Performed By: #### NANCY Larkin MP ####[facility] Atlsbjutpw[address] [place] [address]Dr. Garima Pulliam EGFR-AF AUSTRALIAN >60 Normal >=60 [facility] Comment on above: Performed By: #### NANCY Larkin MP ####[facility] Mzfijzilze[address] [place] [address]Dr. Garima Pulliam EGFR-NON AF AUSTRALIAN >60 Normal >=60 [facility] Comment on above: Performed By: #### NANCY Larkin MP ####[facility] Rxqfhfcxqd7437 [place] [address]Dr. Garima Pulliam Glucose [Mass/Vol] 166 mg/dL Critically high 74-106 [facility] Comment on above: Performed By: #### B MP, CMADM ####[facility] Gzpievxrkr[address] [place] [address]Dr. Garima Pulliam Potassium [Moles/Vol] 3.5 mmol/L Normal 3.5-5.1 The [facility] Comment on above: Performed By: #### B MP, CMADM ####[facility] Ebdbhreuff[address] [place] [address]Dr. Garima Pulliam Sodium [Moles/Vol] 139 mmol/L Normal 136-145 [facility] Comment on above: Performed By: #### B DAVID, CMADM ####[facility] Tndflcyzxm[address] [place] [address]Dr. Garima Pulliam Urea nitrogen [Mass/Vol] 9.0 mg/dL Normal 7.0-18.0 The [facility] Comment on above: Performed By: #### B DAVID, CMAANA ROSA ####[facility] Qekarotfiu[address] [place], [place] [address]Dr. Garima Pulliam Urea nitrogen/Creatinine [Mass ratio] 15.0 mg/mg Normal [facility] Comment on above: Performed By: #### B DAVID, CMADM ####[facility] Gzfeeftqkz[address] [place], [place] [address]Dr. Garima Pulliam XR CHEST 1 Von 12-10-2022 XR CHEST 1 V Normal The [facility] BNPon 11-27-2022 Natriuretic peptide B (Bld) [Mass/Vol] 95.0 pg/mL Normal <=900.0 The [facility] Comment on above: Performed By: #### C MP, HSTROPN, BNP ####[facility] Ugvtjsmylj[address] [place], [place] [address]Dr. Garima Heraclio CBC AUTO DIFFon 11-27-2022 BASO # 0.0 103/ul Normal 0.0-0.1 The [facility] Comment on above: Performed By: #### C BC ####[facility] Sxsyvcoesr[address] [place], [place] [address]Dr. Garima Heraclio Basophils/100 WBC (Bld) 0.2 % Normal 0.2-2.0 The [facility] Comment on above: Performed By: #### C BC ####[facility] H[address]qbfgzve[address] [place] [address]Dr. Garima Pulliam EO # 0.2 103/ul Normal 0.0-0.7 The [facility] Comment on above: Performed By: #### C BC ####[facility] Rxtfowbzgb3798 [place] [address]Dr. Garima Pulliam Eosinophils/100 WBC (Bld) 2.0 % Normal 0.9-7.0 The [facility] Comment on above: Performed By: #### C BC ####[facility] Ktqqhyhcgv[address] [place], [place] [address]Dr. Garima Pulliam Erythrocyte distribution width (RBC) [Ratio] 13.2 % Normal 11.0-15.0 [facility] Comment on above: Performed By: #### C BC ####[facility] Rguwdzmdac[address] [place], [place] [address]Dr. Garima Pulliam Hematocrit (Bld) [Volume fraction] 42.4 % Normal 42.0-54.0 [facility] Comment on above: Performed By: #### C BC ####[facility] Vqnerqsmti[address] [place], [place] [address]Dr. Garima Pulliam Hemoglobin (Bld) [Mass/Vol] 14.4 g/dL Normal 14.0-18.0 The [facility] Comment on above: Performed By: #### C BC ####[facility] Phmohwaahn[address] [place], [place] [address]Dr. Garima Pulliam IG # 0.04 10e3/ul Critically high 0.00-0.03 [facility] Comment on above: Performed By: #### C BC ####[facility] Zjdeadudat[address] [place] [address]Dr. Garima Pulliam IG % 0.4 % Normal 0.0-0.5 The [facility] Comment on above: Performed By: #### C BC ####[facility] Qfblvzvwgs[address] [place], [place] [address]Dr. Garima Pulliam LYMPH # 2.2 103/ul Normal 1.2-3.8 The [facility] Comment on above: Performed By: #### C BC ####[facility] Opudcpkehk[address] [place] [address]Dr. Garima Pulliam Lymphocytes/100 WBC (Bld) 21.5 % Normal 20.5-60.0 The [facility] Comment on above: Performed By: #### C BC ####[facility] Rjlkzzbdcf90[address] [place] [address]Dr. Garima Pulliam MANUAL DIFF REQ NO Normal [facility] Comment on above: Performed By: #### C BC ####[facility] Uubarwhsdv[address] [place] [address]Dr. Garima Heraclio MCH (RBC) [Entitic mass] 30.4 pg Normal 25.9-34.0 The [facility] Comment on above: Performed By: #### C BC ####[facility] Dbzsqawoam[address] [place], [place] [address]Dr. Garima Pulliam MCHC (RBC) [Mass/Vol] 34.0 g/dL Normal 29.9-35.2 The [facility] Comment on above: Performed By: #### C BC ####[facility] Rudeupuhcd[address] [place] [address]Dr. Garima Pulliam MCV (RBC) [Entitic vol] 89.6 fL Normal 80.0-94.0 The [facility] Comment on above: Performed By: #### C BC ####[facility] Kpzqbfezwd[address] [place] [address]Dr. Chapisrenu Heraclio MONO # 0.8 103/ul Normal 0.3-0.8 The [facility] Comment on above: Performed By: #### C BC ####[facility] Zxnpqxmsej4[address] [place] [address]Dr. Garima Heraclio Monocytes/100 WBC (Bld) 7.7 % Normal 1.7-12.0 The [facility] Comment on above: Performed By: #### C BC ####[facility] Qwlshbflmm[address] [place], [place] [address]Dr. Garima Pulliam NEUT # 7.0 103/ul Critically high 1.4-6.5 [facility] Comment on above: Performed By: #### C BC ####[facility] Lfdaghxxld8[address] [place] [address]Dr. Garima Pulliam Neutrophils/100 WBC (Bld) 68.2 % Normal 43.0-75.0 [facility] Comment on above: Performed By: #### C BC ####[facility] Sxtehoahuj[address] [place] [address]Dr. Chapisrenu Heraclio Platelet mean volume (Bld) [Entitic vol] 8.9 fL Critically low 9.5-13.5 [facility] Comment on above: Performed By: #### C BC ####[facility] Ujgvkmzaox[address] [place] [address]Dr. Garima Pulliam PLT 222 103/ul Normal 150-450 [facility] Comment on above: Performed By: #### C BC ####[facility] Tgmuisbzen5327 [place] [address]Dr. Garima Pulliam RBC 4.73 106/ul Normal 4.70-6.10 The [facility] Comment on above: Performed By: #### C BC ####[facility] Nwerenqugh64[address] [place] [address]Dr. Garima Pulliam WBC 10.3 103/ul Normal 4.0-11.0 [facility] Comment on above: Performed By: #### C BC ####[facility] Muerwhaait[address] [place] [address]Dr. Garima Pulliam PROF 14(COMP METB)on 023 Albumin [Mass/Vol] 3.7 g/dL Normal 3.4-5.0 [facility] Comment on above: Performed By: #### C MP, HSTROPN, BNP ####[facility] Rpiidnkswm48[address] [place] [address]Dr. Garima Pulliam Albumin/Globulin [Mass ratio] 1.5 {ratio} Normal [facility] Comment on above: Performed By: #### C MP, HSTROPN, BNP ####[facility] Fwuoxltsut[address] [place] [address]Dr. Garima Pulliam ALP [Catalytic activity/Vol] 79 U/L Normal 46-116 The [facility] Comment on above: Performed By: #### C MP, HSTROPN, BNP ####[facility] Gfispboaiu[address] [place] [address]Dr. Garima Pulliam ALT [Catalytic activity/Vol] 32 U/L Normal 16-63 [facility] Comment on above: Performed By: #### C MP, HSTROPN, BNP ####[facility] Ecfmnqxyqc7[address] [place] [address]Dr. Garima Pulliam Anion gap [Moles/Vol] 9.5 mmol/L Normal [facility] Comment on above: Performed By: #### C MP, HSTROPN, BNP ####[facility] Dhsyuhmvkb[address] [place], [place] [address]Dr. Garima Pulliam AST [Catalytic activity/Vol] 25 U/L Normal 15-37 [facility] Comment on above: Performed By: #### C MP, HSTROPN, BNP ####[facility] O[address]fbvdbxc[address] [place], [place] [address]Dr. Garima Pulliam Bilirubin [Mass/Vol] 0.4 mg/dL Normal 0.2-1.0 The [facility] Comment on above: Performed By: #### C MP, HSTROPN, BNP ####[facility] Btzasdifrc[address] [place], [place] [address]Dr. Garima Pulliam Calcium [Mass/Vol] 8.9 mg/dL Normal 8.5-10.1 [facility] Comment on above: Performed By: #### C MP, HSTROPN, BNP ####[facility] P[address]ysfwhsld[address] [place], [place] [address]Dr. Garima Pulliam Chloride [Moles/Vol] 103 mmol/L Normal 98-107 [facility] [facility] Comment on above: Performed By: #### C MP, HSTROPN, BNP ####[facility] Vagpzwqkl[address] [place], [place] [address]Dr. Garima Pulliam CO2 [Moles/Vol] 28.6 mmol/L Normal 21.0-32.0 [facility] Comment on above: Performed By: #### C MP, HSTROPN, BNP ####[facility] Nls[address]cmhnb[address] [place] [address]Dr. Garima Pulliam Creatinine [Mass/Vol] 0.72 mg/dL Normal 0.70-1.30 [facility] Comment on above: Performed By: #### C MP, HSTROPN, BNP ####[facility] S[address]zbomqev[address] [place] [address]Dr. Garima Pulliam EGFR-AF AUSTRALIAN >60 Normal >=60 [facility] Comment on above: Performed By: #### C MP, HSTROPN, BNP ####[facility] Ddhyowjtoj[address] [place] [address]Dr. Garima Pulliam EGFR-NON AF AUSTRALIAN >60 Normal >=60 [facility] Comment on above: Performed By: #### C MP, HSTROPN, BNP ####[facility] Uwkggzescb[address] [place] [address]Dr. Garima Pulliam Globulin (S) [Mass/Vol] 2.5 g/dL Normal [facility] Comment on above: Performed By: #### C MP, HSTROPN, BNP ####[facility] Ogqvdzdmdp[address] [place], [place] [address]Dr. Garima Pulliam Glucose [Mass/Vol] 114 mg/dL Critically high 74-106 T [facility] Comment on above: Performed By: #### C MP, HSTROPN, BNP ####[facility] H[address]zjwh[address] [place], [place] [address]Dr. Garima Pulliam Potassium [Moles/Vol] 4.1 mmol/L Normal 3.5-5.1 [facility] Comment on above: Performed By: #### C MP, HSTROPN, BNP ####[facility] Qwexdf[address]av[address] [place], [place] [address]Dr. Garima Pulliam Protein [Mass/Vol] 6.2 g/dL Critically low 6.4-8.2 [facility] Comment on above: Performed By: #### C MP, HSTROPN, BNP ####[facility] Kjhszh[address]hot[address] [place], [place] [address]Dr. Yilan Pulliam Sodium [Moles/Vol] 137 mmol/L Normal 136-145 [facility] Comment on above: Performed By: #### C MP, HSTROPN, BNP ####[facility] Ragbaraoqm[address] [place] [address]Dr. Garima Pulliam Urea nitrogen [Mass/Vol] 13.0 mg/dL Normal 7.0-18.0 [facility] Comment on above: Performed By: #### C MP, HSTROPN, BNP ####[facility] B[address]qqcnaml[address] [place] [address]Dr. Garima Heraclio Urea nitrogen/Creatinine [Mass ratio] 18.1 mg/mg Normal [facility] Comment on above: Performed By: #### C MP, HSTROPN, BNP ####[facility] Mng[address]xsjy[address] [place], [place] [address]Dr. Garima Pulliam TROPONIN, HIGH SENSITIVITYon 11-27-2022 HSTROP 11.8 pg/mL Normal 4.0-76.1 [facility] Comment on above: Result Comment: CUT- OFF POINTS HAVE BEEN ESTABLISHED BASED ON THE FOURTH UNIVERSAL DEFINITIONS OF MYOCARDIALINFARCTION. THE UPPER REFERENCE LIMIT (URL) OF TROPONIN, DEFINED THE 99TH PERCENTILE OFcTnI DISTRIBUTION IN A REFERENCE POPULATION, HAS BEEN CONFIRMED THE DECISION THRESHOLDFOR DC DIAGNOSIS. Performed By: #### C MP, HSTROPN, BNP ####[facility] Aujafuiiwt[address] [place], [place] [address]Dr. Garima Pulliam XR CHEST 1 Von 11-27-2022 XR CHEST 1 V Normal [facility] BNPon 11-20-2022 Natriuretic peptide B (Bld) [Mass/Vol] 73.0 pg/mL Normal <=900.0 [facility] Comment on above: Performed By: #### B MP, HSTROPN, BNP ####[facility] Uvtyivlccs[address] [place], [place] [address]Dr. Garima Heraclio CBC AUTO DIFFon 11-20-2022 BASO # 0.0 103/ul Normal 0.0-0.1 [facility] Comment on above: Performed By: #### C BC ####[facility] [address]clcf[address] [place] [id number]. Garima Pulliam Basophils/100 WBC (Bld) 0.3 % Normal 0.2-2.0 The [facility] Comment on above: Performed By: #### C BC ####[facility] Ffujswwghs[address] [place] [id number]. Garima Pulliam EO # 0.2 103/ul Normal 0.0-0.7 [facility] Comment on above: Performed By: #### C BC ####[facility] Rxiqorrvsm[address] [place] [address]Dr. Garima Pulliam Eosinophils/100 WBC (Bld) 2.1 % Normal 0.9-7.0 The [facility] Comment on above: Performed By: #### C BC ####[facility] Z[address]rm[address]cul[address] [place], [place] [address]Dr. Garima Pulliam Erythrocyte distribution width (RBC) [Ratio] 13.2 % Normal 11.0-15.0 The [facility] Comment on above: Performed By: #### C BC ####[facility] Ez[address] [place], [place] [address]Dr. Garima Pulliam Hematocrit (Bld) [Volume fraction] 43.4 % Normal 42.0-54.0 The [facility] Comment on above: Performed By: #### C BC ####[facility] F[address] [place], [place] [address]Dr. Garima Pulliam Hemoglobin (Bld) [Mass/Vol] 14.6 g/dL Normal 14.0-18.0 The [facility] Comment on above: Performed By: #### C BC ####[facility] [address]oiib[address] [place] [address]Dr. Garima Pulliam IG # 0.02 10e3/ul Normal 0.00-0.03 The [facility] Comment on above: Performed By: #### C BC ####[facility] Fhkmhzyzqj[address] [place] [address]Dr. Garima Pulliam IG % 0.2 % Normal 0.0-0.5 The [facility] Comment on above: Performed By: #### C BC ####[facility] Sqhhxgqztp[address] [place] [address]Dr. Garima Heraclio LYMPH # 2.1 103/ul Normal 1.2-3.8 The [facility] Comment on above: Performed By: #### C BC ####[facility] Pvkdsbtimp[address] [place] [address]Dr. Garima Pulliam Lymphocytes/100 WBC (Bld) 19.2 % Critically low 20.5-60.0 The [facility] Comment on above: Performed By: #### C BC ####[facility] Rexunjygra[address] [place] [address]Dr. Garima Heraclio MANUAL DIFF REQ NO Normal [facility] Comment on above: Performed By: #### C BC ####[facility] Qxvadqtucs38[address] [place] [address]Dr. Garima Heraclio MCH (RBC) [Entitic mass] 30.4 pg Normal 25.9-34.0 The [facility] Comment on above: Performed By: #### C BC ####[facility] Twzduqyesd4[address] [place] [address]Dr. Garima Pulliam MCHC (RBC) [Mass/Vol] 33.6 g/dL Normal 29.9-35.2 The [facility] Comment on above: Performed By: #### C BC ####[facility] Wdoumaxlwj15[address] [place] [id number]. Garima Heraclio MCV (RBC) [Entitic vol] 90.4 fL Normal 80.0-94.0 The [facility] Comment on above: Performed By: #### C BC ####[facility] Jbf[address]isubzm[address] [place] [address]Dr. Garima Heraclio MONO # 0.6 103/ul Normal 0.3-0.8 The [facility] Comment on above: Performed By: #### C BC ####[facility] Yzataivnpn45[address] [place] [address]Dr. Chapisrenu Pulliam Monocytes/100 WBC (Bld) 5.8 % Normal 1.7-12.0 The [facility] Comment on above: Performed By: #### C BC ####[facility] Lvsc[address]rg[address] [place], [place] [address]Ek. Garima Pulliam NEUT # 7.8 103/ul Critically high 1.4-6.5 [facility] Comment on above: Performed By: #### C BC ####[facility] Lnhysnsyki4[address] [place] [address]Dr. Garima Pulliam Neutrophils/100 WBC (Bld) 72.4 % Normal 43.0-75.0 The [facility] Comment on above: Performed By: #### C BC ####[facility] Rvfyhluxjg75[address] [place] [address]Dr. Garima Pulliam Platelet mean volume (Bld) [Entitic vol] 8.7 fL Critically low 9.5-13.5 The [facility] Comment on above: Performed By: #### C BC ####[facility] Bczcjnjcij[address] [place] [id number]. Garima Pulliam PLT 184 103/ul Normal 150-450 The [facility] Comment on above: Performed By: #### C BC ####[facility] Tufvekytug[address] [place] [id number]. Garima Pulliam RBC 4.80 106/ul Normal 4.70-6.10 The [facility] Comment on above: Performed By: #### C BC ####[facility] Jjjqiqlxqt[address] [place] [id number]. Garima Pulliam WBC 10.8 103/ul Normal 4.0-11.0 The [facility] Comment on above: Performed By: #### C BC ####[facility] Gfzenfunli[address] [place] [id number]. Garima Pulliam [facility]24 SARS-CoV-2 (COVID-19) RNA MARIE+probe Ql (Unsp spec) Not detected Normal NOT DETECTED The [facility] Comment on above: Result Comment: When diagnostic [...] for this test is supported by the [place] of Health and Human Service's declaration that [...] Performed By: #### C VDTBH ####[facility] [address] [place], [place] [address]Dr. Garima Heraclio INFLUENZA A AND B AGon 11-20 INFLUANEGH SEE BELOW Normal The [facility] Comment on above: Result Comment: Nega tive for Flu A protein angiten. Infection due to Flu A cannot be ruled out. Flu A angiten in the sample may be below the detection limit of the test. Performed By: #### I NFLUAB ####[facility] Wjpsgnltlw[address] [place], [place] [address]Dr. Chapisrenu Heraclio INFLUBNEGH SEE BELOW Normal The [facility] Comment on above: Result Comment: Nega tive for Flu B protein antigen. Infection due to Flu B cannot be ruled out. Flu B antigen in the sample may be below the detection limit of the test. Performed By: #### I NFLUAB ####[facility] Vwnpc[address]upwo[address] [place], [place] [address]Dr. Garima Pulliam INFLUENZA A AG Negative Normal NEGATIVE SEE COMMENT The [facility] Comment on above: Performed By: #### I NFLUAB ####[facility] Vfzfararqv[address] [place], [place] [address]Dr. Garima [facility] INFLUENZA B AG Negative Normal NEGATIVE SEE COMMENT The [facility] Comment on above: Performed By: #### I NFLUAB ####[facility] Amworctrwn[address] [place], [place] [address]Dr. Garima Pulliam PROF CHEM 8 (BAS METB)on Anion gap [Moles/Vol] 8.2 mmol/L Normal [facility] Comment on above: Performed By: #### B MP, HSTROPN, BNP ####[facility] Tmocshhimd[address] [place] [address]Dr. Garima Pulliam Calcium [Mass/Vol] 8.7 mg/dL Normal 8.5-10.1 [facility] Comment on above: Performed By: #### B MP, HSTROPN, BNP ####[facility] Owidtqjvvq64[address] [place] [address]Dr. Garima Pulliam Chloride [Moles/Vol] 103 mmol/L Normal 98-107 [facility] Comment on above: Performed By: #### B MP, HSTROPN, BNP ####[facility] Dqjjtllpsz[address] [place], [place] [address]Dr. Garima Pulliam CO2 [Moles/Vol] 29.4 mmol/L Normal 21.0-32.0 [facility] Comment on above: Performed By: #### B MP, HSTROPN, BNP ####[facility] Wlnvvbwkje[address] [place], [place] [address]Dr. Garima Pulliam Creatinine [Mass/Vol] 0.69 mg/dL Critically low 0.70-1.30 [facility] Comment on above: Performed By: #### B MP, HSTROPN, BNP ####[facility] Lxfhpfxmul[address] [place] [address]Dr. Garima Pulliam EGFR-AF AUSTRALIAN >60 Normal >=60 [facility] Comment on above: Performed By: #### B MP, HSTROPN, BNP ####[facility] Ayegtxzqub[address] [place], [place] [address]Dr. Garima Pulliam EGFR-NON AF AUSTRALIAN >60 Normal >=60 [facility] Comment on above: Performed By: #### B MP, HSTROPN, BNP ####[facility] Dhnznnpcaf6879 [place] [address]Dr. Garima Pulliam Glucose [Mass/Vol] 209 mg/dL Critically high 74-106 [facility] Comment on above: Performed By: #### B MP, HSTROPN, BNP ####[facility] Hfeqxjpeby[address] [place] [address]Dr. Garima Pulliam Potassium [Moles/Vol] 3.6 mmol/L Normal 3.5-5.1 [facility] Comment on above: Performed By: #### B MP, HSTROPN, BNP ####[facility] Qjzhkbykje4[address] [place] [address]Dr. Garima Pulliam Sodium [Moles/Vol] 137 mmol/L Normal 136-145 [facility] Comment on above: Performed By: #### B MP, HSTROPN, BNP ####[facility] Khotiejszt[address] [place] [address]Dr. Garima Pulliam Urea nitrogen [Mass/Vol] 11.0 mg/dL Normal 7.0-18.0 [facility] Comment on above: Performed By: #### B MP, HSTROPN, BNP ####[facility] Gnrjtnovcz[address] [place] [address]Dr. Garima Pulliam Urea nitrogen/Creatinine [Mass ratio] 15.9 mg/mg Normal [facility] Comment on above: Performed By: #### B MP, HSTROPN, BNP ####[facility] Mstukmgsyy[address] [place] [address]Dr. Garima Pulliam TROPONIN, HIGH SENSITIVITYon 11-20-2022 HSTROP 8.7 pg/mL Normal 4.0-76.1 [facility] Comment on above: Result Comment: CUT- OFF POINTS HAVE BEEN ESTABLISHED BASED ON THE FOURTH UNIVERSAL DEFINITIONS OF MYOCARDIALINFARCTION. THE UPPER REFERENCE LIMIT (URL) OF TROPONIN, DEFINED THE 99TH PERCENTILE OFcTnI DISTRIBUTION IN A REFERENCE POPULATION, HAS BEEN CONFIRMED THE DECISION THRESHOLDFOR DC DIAGNOSIS. Performed By: #### B MP, HSTROPN, BNP ####[facility] Qkkhcditfc7[address] [place] [address]Dr. Garima Pulliam XR CHEST 1 Von 11-20-2022 XR CHEST 1 V Normal The [facility] XR CHEST 1 Von 10-02-2022 XR CHEST 1 V Normal The [facility] BNPon 09-29-2022 Natriuretic peptide B (Bld) [Mass/Vol] 107.0 pg/mL Normal <=900.0 The [facility] Comment on above: Performed By: #### C MP, BNP, CMADM ####[facility] Vrbsjmeulb[address] [place] [address]Dr. Garima Pulliam CARDIAC NASH ADMITon 022 CK [Catalytic activity/Vol] 190 U/L Normal 39-308 The [facility] Comment on above: Performed By: #### C MP, BNP, CMADM ####[facility] Hicxoioaxg[address] [place] [address]Dr. Garima Pulliam CK.MB [Mass/Vol] 11.11 ng/mL Critically high <=3.60 [facility] Comment on above: Performed By: #### C MP, BNP, CMADM ####[facility] Vjploxoxvj25[address] [place] [address]Dr. Garima Pulliam HSTROP 11.8 pg/mL Normal 4.0-76.1 The [facility] Comment on above: Result Comment: CUT- OFF POINTS HAVE BEEN ESTABLISHED BASED ON THE FOURTH UNIVERSAL DEFINITIONS OF MYOCARDIALINFARCTION. THE UPPER REFERENCE LIMIT (URL) OF TROPONIN, DEFINED THE 99TH PERCENTILE OFcTnI DISTRIBUTION IN A REFERENCE POPULATION, HAS BEEN CONFIRMED THE DECISION THRESHOLDFOR DC DIAGNOSIS. Performed By: #### C MP, BNP, CMADM ####[facility] Mqoniayolu[address] [place] [address]Dr. Garima Pulliam DORIS 133 ng/mL Critically high 16-96 [facility] Comment on above: Performed By: #### C MP, BNP, CMADM ####[facility] Mbfcacgcxb67[address] [place] [address]Dr. Garima Pulliam CBC AUTO DIFFon 09-29-2022 BASO # 0.0 103/ul Normal 0.0-0.1 The [facility] Comment on above: Performed By: #### C BC ####[facility] Kkzlfkmrmj[address] [place] [address]Dr. Garima Heraclio Basophils/100 WBC (Bld) 0.2 % Normal 0.2-2.0 The [facility] Comment on above: Performed By: #### C BC ####[facility] Nwmjpomyxp7042 [place] [id number]. Garima Pulliam EO # 0.1 103/ul Normal 0.0-0.7 [facility] Comment on above: Performed By: #### C BC ####[facility] Ifnqhfxlek7541 [place] [address]Dr. Garima Pulliam Eosinophils/100 WBC (Bld) 1.4 % Normal 0.9-7.0 [facility] Comment on above: Performed By: #### C BC ####[facility] Dlsmnprcbl[address] [place], [place] [address]Dr. Garima Pulliam Erythrocyte distribution width (RBC) [Ratio] 13.7 % Normal 11.0-15.0 [facility] Comment on above: Performed By: #### C BC ####[facility] Uayfljkilq[address] [place], [place] [address]Dr. Garima Pulliam Hematocrit (Bld) [Volume fraction] 45.4 % Normal 42.0-54.0 [facility] Comment on above: Performed By: #### C BC ####[facility] Yadpqoxrds[address] [place], [place] [address]Dr. Garima Pulliam Hemoglobin (Bld) [Mass/Vol] 14.8 g/dL Normal 14.0-18.0 [facility] Comment on above: Performed By: #### C BC ####[facility] Y[address]hvrvpxv[address] [place], [place] [address]Dr. Garima Pulliam IG # 0.04 10e3/ul Critically high 0.00-0.03 [facility] Comment on above: Performed By: #### C BC ####[facility] Umruxngppq[address] [place], [place] [address]Dr. Garima Pulliam IG % 0.5 % Normal 0.0-0.5 [facility] Comment on above: Performed By: #### C BC ####[facility] Uujokcxumm[address] [place], [place] [address]Dr. Garima Pulliam LYMPH # 1.1 103/ul Critically low 1.2-3.8 The [facility] Comment on above: Performed By: #### C BC ####[facility] Lqlzxnkkkq18[address] [place] [id number]. Garima Pulliam Lymphocytes/100 WBC (Bld) 12.7 % Critically low 20.5-60.0 [facility] Comment on above: Performed By: #### C BC ####[facility] Mfhcqtvgkr7210 [place] [address]Dr. Chapisrenu Pulliam MANUAL DIFF REQ NO Normal [facility] Comment on above: Performed By: #### C BC ####[facility] Dgqfkpitnl6163 [place] [id number]. Garima Heraclio MCH (RBC) [Entitic mass] 30.0 pg Normal 25.9-34.0 The [facility] Comment on above: Performed By: #### C BC ####[facility] [address]uzvhqimp[address] [place], [place] [address]Dr. Garima Heraclio MCHC (RBC) [Mass/Vol] 32.6 g/dL Normal 29.9-35.2 The [facility] Comment on above: Performed By: #### C BC ####[facility] [address] [place], [place] [address]Dr. Garima Heraclio MCV (RBC) [Entitic vol] 91.9 fL Normal 80.0-94.0 The [facility] Comment on above: Performed By: #### C BC ####[facility] Qxmgsymjnw[address] [place], [place] [address]Dr. Chapisrenu Heraclio MONO # 0.4 103/ul Normal 0.3-0.8 The [facility] Comment on above: Performed By: #### C BC ####[facility] M[address]wphelln[address] [place], [place] [address]Dr. Chapisrenu Pulliam Monocytes/100 WBC (Bld) 4.8 % Normal 1.7-12.0 The [facility] Comment on above: Performed By: #### C BC ####[facility] Mgjqazetio[address] [place], [place] [address]Dr. Garima Pulliam NEUT # 7.1 103/ul Critically high 1.4-6.5 [facility] Comment on above: Performed By: #### C BC ####[facility] Txxwkxjmjd9[address] [place] [id number]. Garima Pulliam Neutrophils/100 WBC (Bld) 80.4 % Critically high 43.0-75.0 [facility] Comment on above: Performed By: #### C BC ####[facility] Dmmpwwiscz0763 [place] [id number]. Garima Pulliam Platelet mean volume (Bld) [Entitic vol] 9.1 fL Critically low 9.5-13.5 [facility] Comment on above: Performed By: #### C BC ####[facility] Knlkgiwsmo3973 [place] [id number]. Garima Pulliam PLT 200 103/ul Normal 150-450 [facility] Comment on above: Performed By: #### C BC ####[facility] Lznxsmcnfl5297 [place] [id number]. Garima Pulliam RBC 4.94 106/ul Normal 4.70-6.10 [facility] Comment on above: Performed By: #### C BC ####[facility] [address] [place] [id number]. Garima Pulliam WBC 8.9 103/ul Normal 4.0-11.0 [facility] Comment on above: Performed By: #### C BC ####[facility] Nrsgbwecix[address] [place] [id number]. Garima Pulliam Covid-19 PCR (CVDTB)on SARS-CoV-2 (COVID-19) RNA MARIE+probe Ql (Unsp spec) Not detected Normal NOT DETECTED The [facility] Comment on above: Result Comment: When diagnostic [...] for this test is supported by the [employer] of Health and Human Service's declaration that [...] Performed By: #### C VDTBH ####[facility] Siptflelgy[address] [place] [address]Dr. Garima Pulliam LACTATE/LACTIC ACIDon 2021 Lactate [Moles/Vol] 1.7 mmol/L Normal 0.4-1.9 [facility] Comment on above: Performed By: #### L ACT ####[facility] Dswxqnbzdi[address] [place], [place] [address]Dr. Garima Pulliam PROF 14(COMP METB)on 022 Albumin [Mass/Vol] 3.8 g/dL Normal 3.4-5.0 [facility] Comment on above: Performed By: #### C MP, BNP, CMADM ####[facility] R[address]nnbpyow[address] [place] [address]Dr. Garima Pulliam Albumin/Globulin [Mass ratio] 1.5 {ratio} Normal [facility] Comment on above: Performed By: #### C MP, BNP, CMADM ####[facility] Rkrebchaki[address] [place] [address]Dr. Garima Pulliam ALP [Catalytic activity/Vol] 62 U/L Normal 46-116 [facility] Comment on above: Performed By: #### C MP, BNP, CMADM ####[facility] Dizubfgpgz[address] [place] [address]Dr. Garima Pulliam ALT [Catalytic activity/Vol] 37 U/L Normal 16-63 [facility] Comment on above: Performed By: #### C MP, BNP, CMADM ####[facility] Cwjawhfoub[address] [place] [address]Dr. Garima Pulliam Anion gap [Moles/Vol] 8.0 mmol/L Normal [facility] Comment on above: Performed By: #### C MP, BNP, CMADM ####[facility] Ermzuivqyr[address] [place] [address]Dr. Garima Pulliam AST [Catalytic activity/Vol] 20 U/L Normal 15-37 [facility] Comment on above: Performed By: #### C MP, BNP, CMADM ####[facility] Rojsxadyuy[address] [place] [address]Dr. Garima Pulliam Bilirubin [Mass/Vol] 0.6 mg/dL Normal 0.2-1.0 [facility] Comment on above: Performed By: #### C MP, BNP, CMADM ####[facility] Nrkdiylrkp64[address] [place] [address]Dr. Garima Pulliam Calcium [Mass/Vol] 9.1 mg/dL Normal 8.5-10.1 [facility] Comment on above: Performed By: #### C MP, BNP, CMADM ####[facility] Chpcwarknk[address] [place], [place] [address]Dr. Garima Pulliam Chloride [Moles/Vol] 103 mmol/L Normal 98-107 [facility] Comment on above: Performed By: #### C MP, BNP, CMADM ####[facility] Vqdupilf[address] [place], [place] [address]Dr. Garima Pulliam CO2 [Moles/Vol] 31.8 mmol/L Normal 21.0-32.0 [facility] Comment on above: Performed By: #### C MP, BNP, CMADM ####[facility] Mwapiedk[address] [place], [place] [address]Dr. Garima Pulliam Creatinine [Mass/Vol] 0.63 mg/dL Critically low 0.70-1.30 [facility] Comment on above: Performed By: #### C MP, BNP, CMADM ####[facility] Ugsynduzbz[address] [place], [place] [address]Dr. Garima Pulliam EGFR-AF AUSTRALIAN >60 Normal >=60 [facility] Comment on above: Performed By: #### C MP, BNP, CMADM ####[facility] Xjlphtoubp[address] [place], [place] [address]Dr. Garima Pulliam EGFR-NON AF AUSTRALIAN >60 Normal >=60 [facility] Comment on above: Performed By: #### C MP, BNP, CMADM ####[facility] Ceelwemcjy[address] [place] [address]Dr. Garima Pulliam Globulin (S) [Mass/Vol] 2.6 g/dL Normal [facility] Comment on above: Performed By: #### C MP, BNP, CMADM ####[facility] Cpogtpihzr7[address] [place] [address]Dr. Garima Pulliam Glucose [Mass/Vol] 103 mg/dL Normal 74-106 [facility] Comment on above: Performed By: #### C MP, BNP, CMADM ####[facility] Kjbpillgrp[address] [place] [address]Dr. Garima Pulliam Potassium [Moles/Vol] 3.8 mmol/L Normal 3.5-5.1 [facility] Comment on above: Performed By: #### C MP, BNP, CMADM ####[facility] Etbfphmxdp38[address] [place] [address]Dr. Garima Pulliam Protein [Mass/Vol] 6.4 g/dL Normal 6.4-8.2 [facility] Comment on above: Performed By: #### C MP, BNP, CMADM ####[facility] Fpslyfldfm[address] [place] [address]Dr. Garima Pulliam Sodium [Moles/Vol] 139 mmol/L Normal 136-145 [facility] Comment on above: Performed By: #### C MP, BNP, CMADM ####[facility] Dwubiytbkz6[address] [place] [address]Dr. Garima Pulliam Urea nitrogen [Mass/Vol] 7.0 mg/dL Normal 7.0-18.0 [facility] Comment on above: Performed By: #### C MP, BNP, CMADM ####[facility] Xwkrnepsed54[address] [place] [address]Dr. Garima Pulliam Urea nitrogen/Creatinine [Mass ratio] 11.1 mg/mg Normal [facility] Comment on above: Performed By: #### C MP, BNP, CMADM ####[facility] Vqpxjxbaxw[address] [place] [address]Dr. Garima Pulliam PROTIMEon 09-29-2022 INR Coag (PPP) [Relative time] 1.14 {INR} Normal [facility] Comment on above: Performed By: #### P T, PTT ####[facility] Rntoiymjfx[address] [place], [place] [address]Dr. Garima Pulliam INR GUIDELINES SEE BELOW Normal The [facility] Comment on above: Result Comment: WESLEY RED INR: 2.0 - 3.0 CONDITIONS NOT LISTED BELOW 2.5 - 3.5 FOR PROSTHETIC HEART VALVE REPLACEMENT 2.5 - 3.5 RECURRENT THROMBOSIS Performed By: #### P T, PTT ####[facility] Izzqxkjhtd[address] [place], [place] [address]Dr. Garima Pulliam PT Coag (PPP) [Time] 12.2 s Critically high 9.0-11.6 [facility] Comment on above: Performed By: #### P T, PTT ####[facility] Czwqdlwhlv[address] [place], [place] [address]Dr. Garima Pulliam PTTon 09-29-2022 aPTT Coag (Bld) [Time] 29.3 s Normal 22.3-36.2 [facility] Comment on above: Performed By: #### P T, PTT ####[facility] Lresdxpqtz[address] [place], [place] [address]Dr. Garima Pulliam XR CHEST 1 Von 09-29-2022 XR CHEST 1 V Normal [facility] CBC AUTO DIFFon 09-26-2022 BASO # 0.0 103/ul Normal 0.0-0.1 [facility] Comment on above: Performed By: #### C BC ####[facility] Btvzbekeoy[address] [place], [place] [address]Dr. Garima Pulliam Basophils/100 WBC (Bld) 0.2 % Normal 0.2-2.0 The [facility] Comment on above: Performed By: #### C BC ####[facility] Bfroqsmiwm[address] [place], [place] [address]Dr. Garima Pulliam EO # 0.1 103/ul Normal 0.0-0.7 [facility] Comment on above: Performed By: #### C BC ####[facility] Ttprgxkznu[address] [place], [place] [address]Dr. Garima Heraclio Eosinophils/100 WBC (Bld) 1.0 % Normal 0.9-7.0 [facility] Comment on above: Performed By: #### C BC ####[facility] Wlmxkleaie[address] [place], [place] [address]Dr. Garima Pulliam Erythrocyte distribution width (RBC) [Ratio] 13.4 % Normal 11.0-15.0 [facility] Comment on above: Performed By: #### C BC ####[facility] Ahqvmdxoto[address] [place], [place] [address]Dr. Garima Pulliam Hematocrit (Bld) [Volume fraction] 46.3 % Normal 42.0-54.0 [facility] Comment on above: Performed By: #### C BC ####[facility] Hmnoiqflts[address] [place], [place] [address]Dr. Garima Pulliam Hemoglobin (Bld) [Mass/Vol] 15.3 g/dL Normal 14.0-18.0 [facility] Comment on above: Performed By: #### C BC ####[facility] Yxrxshukip[address] [place], [place] [address]Dr. Garima Pulliam IG # 0.05 10e3/ul Critically high 0.00-0.03 [facility] Comment on above: Performed By: #### C BC ####[facility] Vhywcuzrda[address] [place], [place] [address]Dr. Garima Pulliam IG % 0.4 % Normal 0.0-0.5 [facility] Comment on above: Performed By: #### C BC ####[facility] Kvotboyhcx[address] [place], [place] [address]DrAdalberto Pulliam LYMPH # 1.7 103/ul Normal 1.2-3.8 [facility] Comment on above: Performed By: #### C BC ####[facility] Qqefocfngf[address] [place], [place] [address]Dr. Garima Pulliam Lymphocytes/100 WBC (Bld) 12.7 % Critically low 20.5-60.0 [facility] Comment on above: Performed By: #### C BC ####[facility] Yloynrupag[address] [place] [address]Dr. Garima Pulliam MANUAL DIFF REQ NO Normal [facility] Comment on above: Performed By: #### C BC ####[facility] Lcwkdqoysl[address] [place] [address]Dr. Garima Pulliam MCH (RBC) [Entitic mass] 30.1 pg Normal 25.9-34.0 [facility] Comment on above: Performed By: #### C BC ####[facility] R[address]irpzqarx[address] [place], [place] [address]Dr. Garima Pulliam MCHC (RBC) [Mass/Vol] 33.0 g/dL Normal 29.9-35.2 [facility] Comment on above: Performed By: #### C BC ####[facility] Gqvzoyjwft[address] [place], [place] [address]Dr. Garima Pulliam MCV (RBC) [Entitic vol] 91.1 fL Normal 80.0-94.0 [facility] Comment on above: Performed By: #### C BC ####[facility] Izpwicfzgd[address] [place], [place] [address]DrAdalberto Pulliam MONO # 0.9 103/ul Critically high 0.3-0.8 [facility] Comment on above: Performed By: #### C BC ####[facility] Pdczafxqxy[address] [place], [place] [address]Dr. Garima Pulliam Monocytes/100 WBC (Bld) 7.0 % Normal 1.7-12.0 The [facility] Comment on above: Performed By: #### C BC ####[facility] Cxdiwumhib[address] [place], [place] [address]DrAdalberto Pulliam NEUT # 10.4 103/ul Critically high 1.4-6.5 [facility] Comment on above: Performed By: #### C BC ####[facility] Hzrwhfwehu[address] [place], [place] [address]DrAdalberto Pulliam Neutrophils/100 WBC (Bld) 78.7 % Critically high 43.0-75.0 [facility] Comment on above: Performed By: #### C BC ####[facility] Xkacdridzj70[address] [place] [address]Dr. Garima Pulliam Platelet mean volume (Bld) [Entitic vol] 8.9 fL Critically low 9.5-13.5 [facility] Comment on above: Performed By: #### C BC ####[facility] Fyznkngskz64[address] [place] [address]Dr. Garima Pulliam PLT 195 103/ul Normal 150-450 [facility] Comment on above: Performed By: #### C BC ####[facility] Caajorcyxn[address] [place], [place] [address]Dr. Garima Pulliam RBC 5.08 106/ul Normal 4.70-6.10 [facility] Comment on above: Performed By: #### C BC ####[facility] Vzhshvdcbz[address] [place], [place] [address]Dr. Garima Pulliam WBC 13.2 103/ul Critically high 4.0-11.0 [facility] Comment on above: Performed By: #### C BC ####[facility] Saqffkehrx[address] [place], [place] [address]Dr. Garima Pulliam PROF 14(COMP METB)on 022 Albumin [Mass/Vol] 3.5 g/dL Normal 3.4-5.0 [facility] Comment on above: Performed By: #### C DAVID HSTROPN ####[facility] Ddtrnqhyuc[address] [place] [address]Dr. Garima Pulliam Albumin/Globulin [Mass ratio] 1.2 {ratio} Normal [facility] Comment on above: Performed By: #### C DAVID HSTROPN ####[facility] Xloxsyjpln[address] [place], [place] [address]Dr. Garima Pulliam ALP [Catalytic activity/Vol] 71 U/L Normal 46-116 [facility] Comment on above: Performed By: #### C DAVID HSTROPN ####[facility] Kvdocanfeo[address] [place] [address]Dr. Garima Pulliam ALT [Catalytic activity/Vol] 37 U/L Normal 16-63 [facility] Comment on above: Performed By: #### C DAVID, HSTROPN ####[facility] Iftxdyywlf[address] [place] [address]Dr. Garima Pulliam Anion gap [Moles/Vol] 4.8 mmol/L Normal [facility] Comment on above: Performed By: #### C DAVID, HSTROPN ####[facility] Dgqgwdcrfk78[address] [place] [address]Dr. Garima Pulliam AST [Catalytic activity/Vol] 21 U/L Normal 15-37 [facility] Comment on above: Performed By: #### C DAVID, HSTROPN ####[facility] Wworarqupe[address] [place] [address]Dr. Chapisrenu Pulliam Bilirubin [Mass/Vol] 0.3 mg/dL Normal 0.2-1.0 The [facility] Comment on above: Performed By: #### C DAVID, HSTROPN ####[facility] Yioxpxdzfk25[address] [place] [address]Dr. Garima Pulliam Calcium [Mass/Vol] 8.9 mg/dL Normal 8.5-10.1 [facility] Comment on above: Performed By: #### C DAVID, HSTROPN ####[facility] Bvfwsoxhmz[address] [place] [address]Dr. Garima Pulliam Chloride [Moles/Vol] 106 mmol/L Normal 98-107 [facility] Comment on above: Performed By: #### C DAVID, HSTROPN ####[facility] Rrxsdcfuod64[address] [place] [address]Dr. Garima Pulliam CO2 [Moles/Vol] 29.8 mmol/L Normal 21.0-32.0 [facility] Comment on above: Performed By: #### C DAVID, HSTROPN ####[facility] Znfhpwbmmx3[address] [place] [address]Dr. Chapisrenu Pulliam Creatinine [Mass/Vol] 0.68 mg/dL Critically low 0.70-1.30 [facility] Comment on above: Performed By: #### C MP, HSTROPN ####[facility] Wqdaycgezl[address] [place] [address]Dr. Chapislan Pulliam EGFR-AF AUSTRALIAN >60 Normal >=60 [facility] Comment on above: Performed By: #### C MP, HSTROPN ####[facility] Ggqvdeqpxv[address] [place] [address]Dr. Yilan Pulliam EGFR-NON AF AUSTRALIAN >60 Normal >=60 [facility] Comment on above: Performed By: #### C MP, HSTROPN ####[facility] Xpbhptevkx35[address] [place] [address]Dr. Garima Pulliam Globulin (S) [Mass/Vol] 2.8 g/dL Normal [facility] Comment on above: Performed By: #### C MP, HSTROPN ####[facility] Nhrioredgj[address] [place] [address]Dr. Garima Pulliam Glucose [Mass/Vol] 133 mg/dL Critically high 74-106 [facility] Comment on above: Performed By: #### C MP, HSTROPN ####[facility] Bzihyqnbon[address] [place] [address]Dr. Chapisrenu Pulliam Potassium [Moles/Vol] 3.6 mmol/L Normal 3.5-5.1 [facility] Comment on above: Performed By: #### C MP, HSTROPN ####[facility] Okseyusepv67[address] [place] [address]Dr. Chapislan Pulliam Protein [Mass/Vol] 6.3 g/dL Critically low 6.4-8.2 [facility] Comment on above: Performed By: #### C MP, HSTROPN ####[facility] Ntpimwcrad[address] [place], [place] [address]Dr. Chapislan Pulliam Sodium [Moles/Vol] 137 mmol/L Normal 136-145 [facility] Comment on above: Performed By: #### C MP, HSTROPN ####[facility] Ljjooycumn[address] [place], [place] [address]Dr. Chapisrenu Pulliam Urea nitrogen [Mass/Vol] 15.0 mg/dL Normal 7.0-18.0 The [facility] Comment on above: Performed By: #### C DAVID HSTROPN ####[facility] Udtvxhsvkk[address] [place] [id number]. Chapisrenu Pulliam Urea nitrogen/Creatinine [Mass ratio] 22.1 mg/mg Normal The [facility] Comment on above: Performed By: #### C DAVID HSTROPN ####[facility] Kbskmhysaa[address] [place] [address]Dr. Garima Heraclio TROPONIN, HIGH SENSITIVITYon 09-26-2022 HSTROP 12.8 pg/mL Normal 4.0-76.1 [facility] Comment on above: Result Comment: CUT- OFF POINTS HAVE BEEN ESTABLISHED BASED ON THE FOURTH UNIVERSAL DEFINITIONS OF MYOCARDIALINFARCTION. THE UPPER REFERENCE LIMIT (URL) OF TROPONIN, DEFINED THE 99TH PERCENTILE OFcTnI DISTRIBUTION IN A REFERENCE POPULATION, HAS BEEN CONFIRMED THE DECISION THRESHOLDFOR DC DIAGNOSIS. Performed By: #### C DAVID HSTROPN ####[facility] Fzmxqayukx[address] [place] [address]Dr. Chapisrenu Pulliam XR CHEST 1 Von 09-26-2022 XR CHEST 1 V Normal [facility] XR CHEST 1 Von 09-16-2022 XR CHEST 1 V Normal [facility] CBC AUTO DIFFon 09-15-2022 BASO # 0.0 103/ul Normal 0.0-0.1 [facility] Comment on above: Performed By: #### C BC ####[facility] Yxqaoqjclx[address] [place] [address]Dr. Garima Heraclio Basophils/100 WBC (Bld) 0.1 % Critically low 0.2-2.0 The [facility] Comment on above: Performed By: #### C BC ####[facility] Gxxueuaabb[address] [place] [address]Dr. Garima Pulliam EO # 0.0 103/ul Normal 0.0-0.7 [facility] Comment on above: Performed By: #### C BC ####[facility] Tsmsonmfvp99[address] [place] [address]Dr. Garima Pulliam Eosinophils/100 WBC (Bld) 0.1 % Critically low 0.9-7.0 [facility] Comment on above: Performed By: #### C BC ####[facility] Hwlcenbxus[address] [place] [address]Dr. Garima Pulliam Erythrocyte distribution width (RBC) [Ratio] 14.1 % Normal 11.0-15.0 [facility] Comment on above: Performed By: #### C BC ####[facility] Rfmahdccjz[address] [place], [place] [address]Dr. Garima Pulliam Hematocrit (Bld) [Volume fraction] 46.1 % Normal 42.0-54.0 [facility] Comment on above: Performed By: #### C BC ####[facility] Gmdtontrll[address] [place], [place] [address]Dr. Garima Pulliam Hemoglobin (Bld) [Mass/Vol] 15.0 g/dL Normal 14.0-18.0 [facility] Comment on above: Performed By: #### C BC ####[facility] Waiysnghcx[address] [place], [place] [address]Dr. Garima Pullima IG # 0.03 10e3/ul Normal 0.00-0.03 [facility] Comment on above: Performed By: #### C BC ####[facility] Irhpisnazx[address] [place], [place] [address]Dr. Garima Pulliam IG % 0.3 % Normal 0.0-0.5 [facility] Comment on above: Performed By: #### C BC ####[facility] Jgqinmkfxr[address] [place], [place] [address]Dr. Garima Pulliam LYMPH # 0.6 103/ul Critically low 1.2-3.8 The [facility] Comment on above: Performed By: #### C BC ####[facility] Fzrdnkvgyd[address] [place], [place] [address]Dr. Garima Pulliam Lymphocytes/100 WBC (Bld) 5.8 % Critically low 20.5-60.0 The [facility] Comment on above: Performed By: #### C BC ####[facility] Imlrwbkuma[address] [place] [id number]. Garima Pulliam MANUAL DIFF REQ NO Normal The [facility] Comment on above: Performed By: #### C BC ####[facility] Kahaxsconr0242 [place] [id number]. Garima Pulliam MCH (RBC) [Entitic mass] 30.2 pg Normal 25.9-34.0 The [facility] Comment on above: Performed By: #### C BC ####[facility] Vbyhtswptp23[address] [place] [id number]. Garima Pulliam MCHC (RBC) [Mass/Vol] 32.5 g/dL Normal 29.9-35.2 The [facility] Comment on above: Performed By: #### C BC ####[facility] Aqjfngtplq[address] [place] [address]Dr. Garima Pulliam MCV (RBC) [Entitic vol] 92.8 fL Normal 80.0-94.0 The [facility] Comment on above: Performed By: #### C BC ####[facility] Qgamasmljs3535 [place] [id number]. Garima Heraclio MONO # 0.3 103/ul Normal 0.3-0.8 The [facility] Comment on above: Performed By: #### C BC ####[facility] Afxgujbjqm2715 [place] [id number]. Garima Heraclio Monocytes/100 WBC (Bld) 3.2 % Normal 1.7-12.0 The [facility] Comment on above: Performed By: #### C BC ####[facility] Blsxwbydvf5161 [place] [id number]. Garima Pulliam NEUT # 9.8 103/ul Critically high 1.4-6.5 The [facility] Comment on above: Performed By: #### C BC ####[facility] Apvlpvnrru4966 [place] [id number]. Chapisrenu Pulliam Neutrophils/100 WBC (Bld) 90.5 % Critically high 43.0-75.0 The [facility] Comment on above: Performed By: #### C BC ####[facility] Uotjgxolvl[address] [place] [address]Dr. Garima Pulliam Platelet mean volume (Bld) [Entitic vol] 9.4 fL Critically low 9.5-13.5 The [facility] Comment on above: Performed By: #### C BC ####[facility] Zuhljsdfij6[address] [place] [address]Dr. Garima Pulliam PLT 208 103/ul Normal 150-450 The [facility] Comment on above: Performed By: #### C BC ####[facility] Rubsnuahpf[address] [place], [place] [address]Dr. Garima Pulliam RBC 4.97 106/ul Normal 4.70-6.10 The [facility] Comment on above: Performed By: #### C BC ####[facility] Iavifslvaf260[address] [place] [address]Dr. Garima Pulliam WBC 10.8 103/ul Normal 4.0-11.0 The [facility] Comment on above: Performed By: #### C BC ####[facility] Dcyayxptlm[address] [place], [place] [address]Dr. Garima Pulliam PROF 14(COMP METB)on 022 Albumin [Mass/Vol] 4.0 g/dL Normal 3.4-5.0 [facility] Comment on above: Performed By: #### C MP ####[facility] Inzoyrilja20[address] [place] [address]Dr. Garima Pulliam Albumin/Globulin [Mass ratio] 1.5 {ratio} Normal The [facility] Comment on above: Performed By: #### C MP ####[facility] Npxfujbgcv6624 [place] [address]Dr. Garima Pulliam ALP [Catalytic activity/Vol] 73 U/L Normal 46-116 The [facility] Comment on above: Performed By: #### C MP ####[facility] Qmuqtpvdig1625 [place] [address]Dr. Garima Pulliam ALT [Catalytic activity/Vol] 42 U/L Normal 16-63 The [facility] Comment on above: Performed By: #### C MP ####[facility] Nmyxlyaqnh4253 [place] [address]Dr. Garima Pulliam Anion gap [Moles/Vol] 9.1 mmol/L Normal [facility] Comment on above: Performed By: #### C MP ####[facility] Hbpflqabve[address] [place], [place] [address]Dr. Garima Pulliam AST [Catalytic activity/Vol] 28 U/L Normal 15-37 The [facility] Comment on above: Performed By: #### C MP ####[facility] Clzrqxbpky[address] [place], [place] [address]Dr. Garima Heraclio Bilirubin [Mass/Vol] 0.6 mg/dL Normal 0.2-1.0 The [facility] Comment on above: Performed By: #### C MP ####[facility] Pmkhifphqc[address] [place], [place] [address]Dr. Garima Heraclio Calcium [Mass/Vol] 8.6 mg/dL Normal 8.5-10.1 The [facility] Comment on above: Performed By: #### C MP ####[facility] Hypjnnqfkc[address] [place], [place] [address]Dr. Chapisrenu Pulliam Chloride [Moles/Vol] 105 mmol/L Normal 98-107 The [facility] Comment on above: Performed By: #### C MP ####[facility] Udskhjakbr[address] [place], [place] [address]Dr. Garima Heraclio CO2 [Moles/Vol] 28.5 mmol/L Normal 21.0-32.0 The [facility] Comment on above: Performed By: #### C MP ####[facility] Odquhwbrwb[address] [place], [place] [address]Dr. Garima Pulliam Creatinine [Mass/Vol] 0.78 mg/dL Normal 0.70-1.30 The [facility] Comment on above: Performed By: #### C MP ####[facility] Fwqocyldke[address] [place], [place] [address]Dr. Chapisrenu Heraclio EGFR-AF AUSTRALIAN >60 Normal >=60 The [facility] Comment on above: Performed By: #### C MP ####[facility] Mzabjiiasr[address] [place], [place] [address]Dr. Garima Pulliam EGFR-NON AF AUSTRALIAN >60 Normal >=60 [facility] Comment on above: Performed By: #### C MP ####[facility] Gmdttzvtuw9363 [place] [address]Dr. Garima Pulliam Globulin (S) [Mass/Vol] 2.7 g/dL Normal [facility] Comment on above: Performed By: #### C MP ####[facility] Ermlavptzk72[address] [place] [address]Dr. Garima Pulliam Glucose [Mass/Vol] 220 mg/dL Critically high 74-106 T [facility] Comment on above: Performed By: #### C MP ####[facility] Ezvifgrzra0419 [place] [address]Dr. Garima Pulliam Potassium [Moles/Vol] 3.6 mmol/L Normal 3.5-5.1 [facility] Comment on above: Performed By: #### C MP ####[facility] Ckuongtxqi[address] [place], [place] [address]Dr. Garima Pulliam Protein [Mass/Vol] 6.7 g/dL Normal 6.4-8.2 The [facility] Comment on above: Performed By: #### C MP ####[facility] Dsiluepadt[address] [place], [place] [address]Dr. Garima Pulliam Sodium [Moles/Vol] 139 mmol/L Normal 136-145 [facility] Comment on above: Performed By: #### C MP ####[facility] Sitsqyryig[address] [place], [place] [address]Dr. Garima Pulliam Urea nitrogen [Mass/Vol] 11.0 mg/dL Normal 7.0-18.0 [facility] Comment on above: Performed By: #### C MP ####[facility] Nzshahfalp[address] [place], [place] [address]Dr. Garima Pulliam Urea nitrogen/Creatinine [Mass ratio] 14.1 mg/mg Normal [facility] Comment on above: Performed By: #### C MP ####[facility] Bxizpesdtw[address] [place], [place] [address]Dr. Garima Pulliam CARDIAC NASH 3-6on 2 CK [Catalytic activity/Vol] 240 U/L Normal 39-308 [facility] Comment on above: Performed By: #### C MREP ####[facility] Zyxicirtfu[address] [place] [address]Dr. Garima Pulliam CK.MB [Mass/Vol] 10.38 ng/mL Critically high <=3.60 [facility] Comment on above: Performed By: #### C MREP ####[facility] Pbpsjofobj1405 [place] [address]Dr. Garima Pulliam HSTROP 18.5 pg/mL Normal 4.0-76.1 [facility] Comment on above: Result Comment: CUT- OFF POINTS HAVE BEEN ESTABLISHED BASED ON THE FOURTH UNIVERSAL DEFINITIONS OF MYOCARDIALINFARCTION. THE UPPER REFERENCE LIMIT (URL) OF TROPONIN, DEFINED THE 99TH PERCENTILE OFcTnI DISTRIBUTION IN A REFERENCE POPULATION, HAS BEEN CONFIRMED THE DECISION THRESHOLDFOR DC DIAGNOSIS. Performed By: #### C MREP ####[facility] Oeqkqhddvi[address] [place] [address]Dr. Garima Pulliam CK [Catalytic activity/Vol] 257 U/L Normal 39-308 [facility] Comment on above: Performed By: #### C MREP ####[facility] Cgesghyfdy[address] [place], [place] [address]Dr. Garima Pulliam CK.MB [Mass/Vol] 9.89 ng/mL Critically high <=3.60 [facility] Comment on above: Performed By: #### C MREP ####[facility] Wjfbxmzndj[address] [place], [place] [address]Dr. Garima Pulliam HSTROP 16.9 pg/mL Normal 4.0-76.1 [facility] Comment on above: Result Comment: CUT- OFF POINTS HAVE BEEN ESTABLISHED BASED ON THE FOURTH UNIVERSAL DEFINITIONS OF MYOCARDIALINFARCTION. THE UPPER REFERENCE LIMIT (URL) OF TROPONIN, DEFINED THE 99TH PERCENTILE OFcTnI DISTRIBUTION IN A REFERENCE POPULATION, HAS BEEN CONFIRMED THE DECISION THRESHOLDFOR DC DIAGNOSIS. Performed By: #### C MREP ####[facility] Dpwarxikje[address] [place], [place] [address]Dr. Garima Pulliam CBC AUTO DIFFon 09-13-2022 BASO # 0.0 103/ul Normal 0.0-0.1 The [facility] Comment on above: Performed By: #### C BC ####[facility] Ynxpabzvms6404 [place] [id number]. Garima Pulliam Basophils/100 WBC (Bld) 0.1 % Critically low 0.2-2.0 The [facility] Comment on above: Performed By: #### C BC ####[facility] Buamwqmlkm[address] [place] [address]Dr. Garima Pulliam EO # 0.0 103/ul Normal 0.0-0.7 The [facility] Comment on above: Performed By: #### C BC ####[facility] V[address]hlxngfdz[address] [place], [place] [address]Dr. Garima Pulliam Eosinophils/100 WBC (Bld) 0.0 % Critically low 0.9-7.0 The [facility] Comment on above: Performed By: #### C BC ####[facility] Baahmnymco[address] [place], [place] [address]Dr. Garima Pulliam Erythrocyte distribution width (RBC) [Ratio] 13.6 % Normal 11.0-15.0 The [facility] Comment on above: Performed By: #### C BC ####[facility] Nljufrqxcc0334 [place] [id number]. Garima Pulliam Hematocrit (Bld) [Volume fraction] 48.2 % Normal 42.0-54.0 The [facility] Comment on above: Performed By: #### C BC ####[facility] [address] [place], [place] [address]Dr. Garima Pulliam Hemoglobin (Bld) [Mass/Vol] 16.0 g/dL Normal 14.0-18.0 The [facility] Comment on above: Performed By: #### C BC ####[facility] Lyxlfcffcj9053 [place] [id number]. Garima Pulliam IG # 0.02 10e3/ul Normal 0.00-0.03 The [facility] Comment on above: Performed By: #### C BC ####[facility] Rgqfgdcoev9944 [place] [id number]. Garima Pulliam IG % 0.3 % Normal 0.0-0.5 The [facility] Comment on above: Performed By: #### C BC ####[facility] Zfclusrwmx3353 [place] [address]Dr. Garima Heraclio LYMPH # 0.5 103/ul Critically low 1.2-3.8 The [facility] Comment on above: Performed By: #### C BC ####[facility] Dwbmugqkuo5476 [place] [address]Dr. Garima Heraclio Lymphocytes/100 WBC (Bld) 7.7 % Critically low 20.5-60.0 The [facility] Comment on above: Performed By: #### C BC ####[facility] Bytwxdlfnd[address] [place], [place] [address]Dr. Chapisrenu Pulliam MANUAL DIFF REQ NO Normal [facility] Comment on above: Performed By: #### C BC ####[facility] Pqfzipnigv[address] [place], [place] [address]Dr. Garima Heraclio MCH (RBC) [Entitic mass] 30.6 pg Normal 25.9-34.0 The [facility] Comment on above: Performed By: #### C BC ####[facility] Weigqlzpin[address] [place], [place] [address]Dr. Garima Pulliam MCHC (RBC) [Mass/Vol] 33.2 g/dL Normal 29.9-35.2 The [facility] Comment on above: Performed By: #### C BC ####[facility] Dnqbiqxbde8131 [place] [address]Dr. Garima Heraclio MCV (RBC) [Entitic vol] 92.2 fL Normal 80.0-94.0 The [facility] Comment on above: Performed By: #### C BC ####[facility] Wjsicuoooh[address] [place], [place] [address]Dr. Garima Pulliam MONO # 0.0 103/ul Critically low 0.3-0.8 The [facility] Comment on above: Performed By: #### C BC ####[facility] Lakewiklvc6431 [place] [address]Dr. Garima Pulliam Monocytes/100 WBC (Bld) 0.4 % Critically low 1.7-12.0 The [facility] Comment on above: Performed By: #### C BC ####[facility] Nrfxgvyzan4832 [place] [address]Dr. Garima Pulliam NEUT # 6.2 103/ul Normal 1.4-6.5 The [facility] Comment on above: Performed By: #### C BC ####[facility] Fxvgwicmhe1401 [place] [address]Dr. Garima Pulliam Neutrophils/100 WBC (Bld) 91.5 % Critically high 43.0-75.0 The [facility] Comment on above: Performed By: #### C BC ####[facility] Pxqoyrkclj5182 [place] [address]Dr. Garima Pulliam Platelet mean volume (Bld) [Entitic vol] 8.7 fL Critically low 9.5-13.5 The [facility] Comment on above: Performed By: #### C BC ####[facility] Wtklxsoajs8273 [place] [address]Dr. Garima Pulliam PLT 179 103/ul Normal 150-450 The [facility] Comment on above: Performed By: #### C BC ####[facility] Xbrejuckbr2533 [place] [address]Dr. Garima Pulliam RBC 5.23 106/ul Normal 4.70-6.10 The [facility] Comment on above: Performed By: #### C BC ####[facility] Nzdxanqehj0304 [place] [address]Dr. Garima Pulliam WBC 6.7 103/ul Normal 4.0-11.0 The [facility] Comment on above: Performed By: #### C BC ####[facility] Tpskydusee80[address] [place] [address]Dr. Garima Pulliam PROF CHEM 8 (BAS METB)on Anion gap [Moles/Vol] 12.1 mmol/L Normal [facility] Comment on above: Performed By: #### B MP ####[facility] Mdqnstnuyy5460 [place] [id number]. Garima Pulliam Calcium [Mass/Vol] 8.7 mg/dL Normal 8.5-10.1 The [facility] Comment on above: Performed By: #### B MP ####[facility] Bctytlkjfv2670 [place] [id number]. Garima Pulliam Chloride [Moles/Vol] 105 mmol/L Normal 98-107 [facility] Comment on above: Performed By: #### B MP ####[facility] Egfwcddrmk5149 [place] [address]Dr. Garima Pulliam CO2 [Moles/Vol] 25.5 mmol/L Normal 21.0-32.0 The [facility] Comment on above: Performed By: #### B MP ####[facility] Lnwqwowdzv8940 [place] [address]Dr. Garima Pulliam Creatinine [Mass/Vol] 0.63 mg/dL Critically low 0.70-1.30 [facility] Comment on above: Performed By: #### B MP ####[facility] Lyixgkztbz9[address] [place] [address]Dr. Garima Pulliam EGFR-AF AUSTRALIAN >60 Normal >=60 The [facility] Comment on above: Performed By: #### B MP ####[facility] Rzcqxtbtez1779 [place] [address]Dr. Garima Pulliam EGFR-NON AF AUSTRALIAN >60 Normal >=60 [facility] Comment on above: Performed By: #### B MP ####[facility] Temrqzbsbq9044 [place] [address]Dr. Garima Pulliam Glucose [Mass/Vol] 162 mg/dL Critically high 74-106 [facility] Comment on above: Performed By: #### B MP ####[facility] Zbculgkarc[address] [place], [place] [address]Dr. Garima Pulliam Potassium [Moles/Vol] 3.6 mmol/L Normal 3.5-5.1 The [facility] Comment on above: Performed By: #### B MP ####[facility] Ilymcqlahp[address] [place], [place] [address]Dr. Garima Pulliam Sodium [Moles/Vol] 139 mmol/L Normal 136-145 The [facility] Comment on above: Performed By: #### B DAVID ####[facility] Aovrwtpenu92[address] [place] [address]Dr. Garima Pulliam Urea nitrogen [Mass/Vol] 9.0 mg/dL Normal 7.0-18.0 [facility] Comment on above: Performed By: #### B DAVID ####[facility] Vwdxtsdsef1153 [place] [address]Dr. Garima Pulliam Urea nitrogen/Creatinine [Mass ratio] 14.3 mg/mg Normal [facility] Comment on above: Performed By: #### B DAVID ####[facility] Rlzubbefdm27[address] [place] [address]Dr. Chapisrenu Pulliam CARDIAC NASH ADMITon 09-12- 022 CK [Catalytic activity/Vol] 304 U/L Normal 39-308 [facility] Comment on above: Performed By: #### B NANCY HERNANDEZ ####[facility] Uptvpvpvbq2015 [place] [address]Dr. Chapisrenu Pulliam CK.MB [Mass/Vol] 11.81 ng/mL Critically high <=3.60 [facility] Comment on above: Performed By: #### B NANCY HERNANDEZ ####[facility] Jqhcuanjwg0116 [place] [address]Dr. Garima Heraclio HSTROP 13.3 pg/mL Normal 4.0-76.1 [facility] Comment on above: Result Comment: CUT- OFF POINTS HAVE BEEN ESTABLISHED BASED ON THE FOURTH UNIVERSAL DEFINITIONS OF MYOCARDIALINFARCTION. THE UPPER REFERENCE LIMIT (URL) OF TROPONIN, DEFINED THE 99TH PERCENTILE OFcTnI DISTRIBUTION IN A REFERENCE POPULATION, HAS BEEN CONFIRMED THE DECISION THRESHOLDFOR DC DIAGNOSIS. Performed By: #### NANCY Larkin MP ####[facility] Luecwzuwez32[address] [place] [address]Dr. Garima Pulliam DORIS 133 ng/mL Critically high 16-96 [facility] Comment on above: Performed By: #### B NANCY HERNANDEZ ####[facility] Zpoqgwphzs[address]23 [place] [address]Dr. Garima Pulliam CBC AUTO DIFFon 09-12-2022 BASO # 0.0 103/ul Normal 0.0-0.1 The [facility] Comment on above: Performed By: #### C BC ####[facility] Beucerbvjv[address] [place], [place] [address]Dr. Garima Heraclio Basophils/100 WBC (Bld) 0.2 % Normal 0.2-2.0 The [facility] Comment on above: Performed By: #### C BC ####[facility] Jtiyqbajas[address] [place], [place] [address]Dr. Chapisrenu Pulliam EO # 0.2 103/ul Normal 0.0-0.7 The [facility] Comment on above: Performed By: #### C BC ####[facility] Izwodgmrik[address] [place], [place] [address]Dr. Chapisrenu Pulliam Eosinophils/100 WBC (Bld) 1.3 % Normal 0.9-7.0 The [facility] Comment on above: Performed By: #### C BC ####[facility] Psvijxzdgy[address] [place], [place] [address]Dr. Garima Pulliam Erythrocyte distribution width (RBC) [Ratio] 13.7 % Normal 11.0-15.0 [facility] Comment on above: Performed By: #### C BC ####[facility] Usuvnnxmnt[address] [place], [place] [address]Dr. Garima Pulliam Hematocrit (Bld) [Volume fraction] 46.4 % Normal 42.0-54.0 The [facility] Comment on above: Performed By: #### C BC ####[facility] Egncpvruxl[address] [place], [place] [address]Dr. Garima Pulliam Hemoglobin (Bld) [Mass/Vol] 15.7 g/dL Normal 14.0-18.0 The [facility] Comment on above: Performed By: #### C BC ####[facility] Nxld[address] [place], [place] [address]Dr. Garima Pulliam IG # 0.04 10e3/ul Critically high 0.00-0.03 [facility] Comment on above: Performed By: #### C BC ####[facility] [address] [place] [id number]. Garima Pulliam IG % 0.3 % Normal 0.0-0.5 [facility] Comment on above: Performed By: #### C BC ####[facility] [address] [place] [address]Dr. Garima Pulliam LYMPH # 1.7 103/ul Normal 1.2-3.8 [facility] Comment on above: Performed By: #### C BC ####[facility] [address] [place] [address]Dr. Garima Pulliam Lymphocytes/100 WBC (Bld) 11.5 % Critically low 20.5-60.0 [facility] Comment on above: Performed By: #### C BC ####[facility] [address] [place] [address]Dr. Garima Pulliam MANUAL DIFF REQ NO Normal [facility] Comment on above: Performed By: #### C BC ####[facility] [address] [place] [id number]. Garima Pulliam MCH (RBC) [Entitic mass] 31.0 pg Normal 25.9-34.0 [facility] Comment on above: Performed By: #### C BC ####[facility] [address] [place] [address]Dr. Garima Pulliam MCHC (RBC) [Mass/Vol] 33.8 g/dL Normal 29.9-35.2 [facility] Comment on above: Performed By: #### C BC ####[facility] [address] [place], [place] [address]Dr. Garima Pulliam MCV (RBC) [Entitic vol] 91.7 fL Normal 80.0-94.0 [facility] Comment on above: Performed By: #### C BC ####[facility] [address] [place] [id number]. Garima Pulliam MONO # 0.8 103/ul Normal 0.3-0.8 [facility] Comment on above: Performed By: #### C BC ####[facility] [address] [place] [address]Dr. Garima Pulliam Monocytes/100 WBC (Bld) 5.2 % Normal 1.7-12.0 [facility] Comment on above: Performed By: #### C BC ####[facility] Hz[address] [place] [address]Dr. Garima Pulliam NEUT # 11.7 103/ul Critically high 1.4-6.5 [facility] Comment on above: Performed By: #### C BC ####[facility] [address] [place] [address]Dr. Garima Pulliam Neutrophils/100 WBC (Bld) 81.5 % Critically high 43.0-75.0 [facility] Comment on above: Performed By: #### C BC ####[facility] [address] [place] [address]Dr. Garima Pulliam Platelet mean volume (Bld) [Entitic vol] 8.6 fL Critically low 9.5-13.5 [facility] Comment on above: Performed By: #### C BC ####[facility] [address] [place], [place] [address]Dr. Garima Pulliam PLT 191 103/ul Normal 150-450 [facility] Comment on above: Performed By: #### C BC ####[facility] [address] [place], [place] [address]Dr. Garima Pulliam RBC 5.06 106/ul Normal 4.70-6.10 [facility] Comment on above: Performed By: #### C BC ####[facility] Ng[address] [place], [place] [address]Dr. Garima Pulliam WBC 14.4 103/ul Critically high 4.0-11.0 [facility] Comment on above: Performed By: #### C BC ####[facility] [address] [place], [place] [address]Dr. Garima Pulliam [facility]24 SARS-CoV-2 (COVID-19) RNA MARIE+probe Ql (Unsp spec) Not detected Normal NOT DETECTED [facility] Comment on above: Result Comment: When [...] for this test is supported by the [employer] and Human Service's declaration that [...] Performed By: #### C VDTBH ####[facility] [address] [place], [place] [address]Dr. Garima Pulliam LACTATE/LACTIC ACIDon 2021 Lactate [Moles/Vol] 1.0 mmol/L Normal 0.4-1.9 [facility] Comment on above: Performed By: #### L ACT ####[facility] [address] [place], [place] [address]Dr. Garima Pulliam PROF CHEM 8 (BAS METB)on Anion gap [Moles/Vol] 11.6 mmol/L Normal [facility] Comment on above: Performed By: #### B NANCY HERNANDEZ ####[facility] [address] [place] [address]Dr. Garima Pulliam Calcium [Mass/Vol] 9.2 mg/dL Normal 8.5-10.1 [facility] Comment on above: Performed By: #### B NANCY HERNANDEZ ####[facility] [address] [place] [address]Dr. Garima Pulliam Chloride [Moles/Vol] 105 mmol/L Normal 98-107 [facility] Comment on above: Performed By: #### B MP, CMADM ####[facility] [address] [place] [address]Dr. Garima Pulliam CO2 [Moles/Vol] 25.9 mmol/L Normal 21.0-32.0 [facility] Comment on above: Performed By: #### B DAVID, CMADM ####[facility] [address] [place] [address]Dr. Garima Pulliam Creatinine [Mass/Vol] 0.72 mg/dL Normal 0.70-1.30 [facility] Comment on above: Performed By: #### B DAVID, CMADM ####[facility] [address] [place] [address]Dr. Garima Pulliam EGFR-AF AUSTRALIAN >60 Normal >=60 [facility] Comment on above: Performed By: #### B DAVID, CMADM ####[facility] [address] [place] [address]Dr. Chapisrenu Pulliam EGFR-NON AF AUSTRALIAN >60 Normal >=60 [facility] Comment on above: Performed By: #### B DAVID, CMADM ####[facility] [address] [place] [address]Dr. Garima Pulliam Glucose [Mass/Vol] 111 mg/dL Critically high 74-106 [facility] Comment on above: Performed By: #### B DAVID, CMADM ####[facility] [address] [place] [address]Dr. Chapisrenu Pulliam Potassium [Moles/Vol] 3.5 mmol/L Normal 3.5-5.1 [facility] Comment on above: Performed By: #### B DAVID, CMADM ####[facility] [address] [place] [address]Dr. Chapisrenu Pulliam Sodium [Moles/Vol] 139 mmol/L Normal 136-145 [facility] Comment on above: Performed By: #### B DAVID, CMADM ####[facility] [address] [place] [address]Dr. Garima Pulliam Urea nitrogen [Mass/Vol] 7.0 mg/dL Normal 7.0-18.0 [facility] Comment on above: Performed By: #### B DAVID, CMADM ####[facility] [address] [place], [place] [address]Bh. Garima Pulliam Urea nitrogen/Creatinine [Mass ratio] 9.7 mg/mg Normal [facility] Comment on above: Performed By: #### B MP, CMADM ####[facility] [address] [place], [place] [address]Ju. Garima Pulliam XR CHEST 1 Von 09-12-2022 XR CHEST 1 V Normal [facility] Encounters Encounter Date Encounter Type Care Provider [...] Facility:[facility]1 Payers Date Payer Category Payer Unknown [id number] 1960 Medicaid [id number] 1960 Unknown [id number] 1959 Unknown [id number] 1954 Unknown [id number] 2.16.84 0.1.712702.3.579.2.593 1954 Unknown [id number] 2.16.84 0.1.827818.3.579.2.593 1954 Unknown [id number] 2.16.84 0.1.915318.3.579.2.593 1954 Unknown [id number] 2.16.84 0.1.648040.3.579.2.593 1954 Unknown [id number] 2.16.84 0.1.936370.3.579.2.593 1954 Unknown [id number] 2.16.84 0.1.554426.3.579.2.593 1954 Unknown [id number] 2.16.84 0.1.221825.3.579.2.593 1954 Unknown [id number] 2.16.84 0.1.172867.3.579.2.593 1954 Unknown [id number] 2.16.84 0.1.798590.3.579.2.593 1954 Unknown [id number] 2.16.84 0.1.952643.3.579.2.593 1954 Unknown [id number] 2.16.84 0.1.421845.3.579.2.593 1954 Unknown [id number] 2.16.84 0.1.478538.3.579.2.593 1954 Unknown [id number] 2.16.84 0.1.306513.3.579.2.593 1954 Unknown [id number] 2.16.84 0.1.278282.3.579.2.593 1954 Unknown [id number] 2.16.84 0.1.243081.3.579.2.593 1954 Unknown [id number] 2.16.84 0.1.582442.3.579.2.593 1954 Unknown [id number] 2.16.84 0.1.123815.3.579.2.593 1954 Unknown [id number] 2.16.84 0.1.148592.3.579.2.593 1954 Unknown [id number] 2.16.84 0.1.807333.3.579.2.593 1954 Unknown [id number] 2.16.84 0.1.194288.3.579.2.593 Summary Purpose Family History No Family History Records Found Advance Directives No Advanced Directives Records Found Additional Source Comments (unrecognized sect ion and content) No Status Records Found INFORMATION SOURCE (unrecogn ized section and content) DATE CREATED AUTHOR 04/08/2023 [facility] FOR RECORDS PERTAINING TO PATIENTS WHO [...] THE PRIMARY CLINICAL RECORDS. [facility] [employer] [facility]. provides no warranty or guarantee of the accuracy or completeness of information in this document.
--- NOTE | 2024-05-09 15:54 | XR_ITS ---
The [address] [address] Patient Name: CONSTANZA BARRETO MRN: [id number] date: 1955 Sex: M Assigned Patient Location: ED.MAIN Current Patient Location: ED.MAIN Accession/Order Number: [id number] Exam Date: 05/09/2024 15:48 Report Date: 05/09/2024 16:02 At the request of: ANIYAH LEO Procedure: XR chest 1V EXAMINATION: XR chest 1V HISTORY: Dyspnea COMPARISON: XR chest 04/16/2024 FINDINGS: LUNGS: Mild haziness and stranding within lateral right lung base. VASCULATURE: No increased pulmonary vasculature. PLEURA: No pneumothorax, effusion, or pleural thickening. CARDIAC: No cardiomegaly or cardiac silhouette abnormality. MEDIASTINUM: No visible mass or adenopathy. BONES: No fracture or visible bone lesion. OTHER: Negative. XR/XR chest 1V IMPRESSION: 1. Trace amount of right basilar atelectasis versus infiltrates. Electronically authenticated by: YUSEF CUETO Date: 05/09/2024 16:02
[2024-05-09 16:00] VITALS: O2SAT 96
[2024-05-09] MEDS: IPRATROPIUM/ALBUTEROL SULFATE 3 ML AMPUL.NEB IH (16:06)
[2024-05-09 16:07] VITALS: PULSE 63; O2SAT 96
--- NOTE | 2024-05-09 17:13 | ECG_ITS ---
The [facility] Test Date: 2024-05-09 Pat Name: CONSTANZA BARRETO Department: Room: - Gender: Male [employer]: : 1955 Requested By: Order Number: [id number] Reading MD: CARLYN LITTLE Measurements Intervals [place] Rate: 70 P: 70 UT: 204 QRS: 40 QRSD: 102 T: 60 QT: 404 QTc: 425 Interpretive Statements 1100 Sinus rhythm 3434 Septal myocardial infarction, age undetermined [address] depression, can't exclude inferolateral ischemia 9150 abnormal ECG Compared to ECG 04/16/2024 15:54:16 No significant changes Electronically Signed On 05-09-2024 22:52:59 EDT by CARLYN LITTLE
== END 2024-05-09 16:37 | disposition home or self-care (01) ==
PROVIDERS: Emergency Provider Emergency Medicine Emergency Medical Services
DX: J44.0 Chronic obstructive pulmonary disease with (acute) lower respiratory infection (principal); F17.210 Nicotine dependence, cigarettes, uncomplicated
CPT/HCPCS: 71045; 93005; 94640; 99283

== ENCOUNTER 2024-05-14 20:24 | Emergency (ER) | payer MEDICARE, SELFPAY ==
--- OUTSIDE RECORDS SUMMARY | 2024-05-14 20:33 | XMS_ITS | CCD ---
Author Organization [facility] CliniSynj Care Team Providers Care Corn Crop Supervisor Name Role Phone REQUEST, DR NONE LISTED Primary Care Unavaila ble TIFFANY ., LEIA Admitting Unavailable TIFFANY ., LEIA [...] HIRAMNY ., PALMIRA FOX Consulting Unavailheriberto ALLEN .LEIA Attending Unavailable REQUEST, NONE LISTED Primary Care Unavaila ble DIANE RICHARDS Consulting Unavailable PAY ., DR MIDDLETON Attending Unavailable PAY ., DR MIDDLETON Consulting Unavailable PAY ., DR MIDDLETON Admitting Unavailable REQUEST, DR HINES LISTED Primary Care Unavaila ble LINDA CHANG Consulting Unavailable CABALLERO ., DR SEBAS Parker Consulting Unavailable CABALLERO ., DR SEBAS Parker Admitting Unavailable CABALLERO ., DR SEBAS Parker Attending Unavailable REQUEST, NONE LISTED Primary Care Unavaila ble TAVARES, KENTRELL Consulting Unavailable REGINALDO LUCIO Consulting Unavailable TAVARES, KENTRELL Admitting Unavailable KENTRELL CHAPIN Attending Unavailable KENTRELL CHAPIN Consulting Unavailable REQUEST, [...] KATKO, DEMARCUS D Admitting Unavailable KATKO, DEMARCUS D Attending Unavailable Zieber, Rui Consulting Unavailable KATKO, [...] Facility (1 source) Penicillin Drug Allergy [facility] Repository Problems Active Problems Problem Classification Problem [...] 03-27-2023 Episodic Other aftercare (1 source) Other assisted (current) drug therapy; Translations: [OTH PRISON CURRENT DRUG THERAPY] Onset: 04-07-2023 Episodic Other [...] BASO # 0.0 103/ul Normal 0.0-0.1 [facility] Comment on above: Performed By: #### C BC ####[facility] [address] [place] [address]Dr. Garima Pulliam Basophils/100 WBC (Bld) 0.3 % Normal 0.2-2.0 [facility] Comment on above: Performed By: #### C BC ####[facility] [address]scxhqnom[address] [place] [address]DrAdalberto Pulliam EO # 0.3 103/ul Normal 0.0-0.7 [facility] Comment on above: Performed By: #### C BC ####[facility] [address]aspe[address] [place], [place] [address]Dr. Garima Pulliam Eosinophils/100 WBC (Bld) 2.8 % Normal 0.9-7.0 [facility] Comment on above: Performed By: #### C BC ####[facility] [address]fgtskep[address] [place] [address]Dr. Garima Pulliam Erythrocyte distribution width (RBC) [Ratio] 13.4 % Normal 11.0-15.0 [facility] Comment on above: Performed By: #### C BC ####[facility] Mhbxyjkeqt[address] [place] [address]Dr. Garima Pulliam Hematocrit (Bld) [Volume fraction] 45.7 % Normal 42.0-54.0 [facility] Comment on above: Performed By: #### C BC ####[facility] [address]tyzfpie[address] [place] [address]Dr. Garima Pulliam Hemoglobin (Bld) [Mass/Vol] 15.2 g/dL Normal 14.0-18.0 [facility] Comment on above: Performed By: #### C BC ####[facility] Rljucweyyd[address] [place] [address]Dr. Garima Pulliam IG # 0.02 10e3/ul Normal 0.00-0.03 [facility] Comment on above: Performed By: #### C BC ####[facility] Mywlrzrprj[address] [place] [address]Dr. Garima Pulliam IG % 0.2 % Normal 0.0-0.5 [facility] Comment on above: Performed By: #### C BC ####[facility] [address]wrfupsdvk[address] [place] [address]Dr. Garima Pulliam LYMPH # 2.1 103/ul Normal 1.2-3.8 [facility] Comment on above: Performed By: #### C BC ####[facility] Nhgkzvcfiq[address] [place] [address]Dr. Garima Pulliam Lymphocytes/100 WBC (Bld) 23.7 % Normal 20.5-60.0 [facility] Comment on above: Performed By: #### C BC ####[facility] [address]epqdnoa[address] [place] [address]Dr. Garima Heraclio MANUAL DIFF REQ NO Normal [facility] Comment on above: Performed By: #### C BC ####[facility] Zuncelwsla[address] [place] [address]Dr. Garima Pulliam MCH (RBC) [Entitic mass] 30.4 pg Normal 25.9-34.0 [facility] Comment on above: Performed By: #### C BC ####[facility] [address]znzwedj[address] [place] [address]Dr. Garima Heraclio MCHC (RBC) [Mass/Vol] 33.3 g/dL Normal 29.9-35.2 [facility] Comment on above: Performed By: #### C BC ####[facility] Qxhazxjahq[address] [place], [place] [address]Dr. Chapisrenu Pulliam MCV (RBC) [Entitic vol] 91.4 fL Normal 80.0-94.0 [facility] Comment on above: Performed By: #### C BC ####[facility] Fetpsiqlcp[address] [place], [place] [address]Dr. Garima Heraclio MONO # 0.7 103/ul Normal 0.3-0.8 [facility] Comment on above: Performed By: #### C BC ####[facility] Otmigwqbse[address] [place], [place] [address]Dr. Chapisrenu Pulliam Monocytes/100 WBC (Bld) 8.3 % Normal 1.7-12.0 [facility] Comment on above: Performed By: #### C BC ####[facility] [address]kxgdfvc[address] [place] [address]Dr. Chapisrenu Heraclio NEUT # 5.8 103/ul Normal 1.4-6.5 [facility] Comment on above: Performed By: #### C BC ####[facility] Nzsarzfszr[address] [place], [place] [address]Dr. Garima Pulliam Neutrophils/100 WBC (Bld) 64.7 % Normal 43.0-75.0 [facility] Comment on above: Performed By: #### C BC ####[facility] Jwksxsinxg[address] [place] [address]Dr. Garima Pulliam Platelet mean volume (Bld) [Entitic vol] 8.6 fL Critically low 9.5-13.5 [facility] Comment on above: Performed By: #### C BC ####[facility] Ykkivgnnhz[address] [place] [address]Dr. Garima Pulliam PLT 230 103/ul Normal 150-450 [facility] Comment on above: Performed By: #### C BC ####[facility] Kxdzniqley30[address] [place] [address]Dr. Chapisrenu Heraclio RBC 5.00 106/ul Normal 4.70-6.10 [facility] Comment on above: Performed By: #### C BC ####[facility] Rhjnravwzo99[address] [place] [address]Dr. Garima Heraclio WBC 9.0 103/ul Normal 4.0-11.0 [facility] Comment on above: Performed By: #### C BC ####[facility] Eerwlkzbrw45[address] [place] [address]Dr. Garima Pulliam MAGNESIUMon 04-04-2023 Magnesium [Mass/Vol] 1.8 mg/dL Normal 1.8-2.4 [facility] Comment on above: Performed By: #### M G ####[facility] Qxnjljfhqn[address] [place] [address]Dr. Chapisrenu Pulliam PROF 14(COMP METB)on 023 Albumin [Mass/Vol] 3.8 g/dL Normal 3.4-5.0 [facility] Comment on above: Performed By: #### C MP ####[facility] [address]kxkntduz[address] [place] [address]Dr. Garima Pulliam Albumin/Globulin [Mass ratio] 1.2 {ratio} Normal [facility] Comment on above: Performed By: #### C MP ####[facility] Lfqbahpxmt9[address] [place] [address]Dr. Garima Heraclio ALP [Catalytic activity/Vol] 84 U/L Normal 46-116 [facility] Comment on above: Performed By: #### C MP ####[facility] Frwtulerzb35[address] [place] [id number]. Garima Pulliam ALT [Catalytic activity/Vol] 31 U/L Normal 16-63 [facility] Comment on above: Performed By: #### C MP ####[facility] Vpnqkvjwcg0640 [place] [address]Dr. Garima Pulliam Anion gap [Moles/Vol] 12.2 mmol/L Normal [facility] Comment on above: Performed By: #### C MP ####[facility] Wptmqzyrtg5[address] [place] [address]Dr. Garima Pulliam AST [Catalytic activity/Vol] 23 U/L Normal 15-37 [facility] Comment on above: Performed By: #### C MP ####[facility] Bldbhejifv[address] [place], [place] [address]Dr. Garima Pulliam Bilirubin [Mass/Vol] 0.5 mg/dL Normal 0.2-1.0 [facility] Comment on above: Performed By: #### C MP ####[facility] Ernnpbgdik[address] [place], [place] [address]Dr. Garima Pulliam Calcium [Mass/Vol] 9.2 mg/dL Normal 8.5-10.1 [facility] Comment on above: Performed By: #### C MP ####[facility] Qzqgdyfpbi99[address] [place], [place] [address]Dr. Garima Pulliam Chloride [Moles/Vol] 103 mmol/L Normal 98-107 [facility] Comment on above: Performed By: #### C MP ####[facility] Ztuuvieufr[address] [place] [address]Dr. Garima Pulliam CO2 [Moles/Vol] 28.5 mmol/L Normal 21.0-32.0 [facility] Comment on above: Performed By: #### C MP ####[facility] Ytclpmppxf[address] [place], [place] [address]Dr. Garima Pulliam Creatinine [Mass/Vol] 0.74 mg/dL Normal 0.70-1.30 [facility] Comment on above: Performed By: #### C MP ####[facility] [address] [place] [id number]. Garima Pulliam EGFR-AF [place] ISLANDER >60 Normal >=60 [facility] Comment on above: Performed By: #### C MP ####[facility] Wokfrrxmvy4[address] [place] [address]Dr. Garima Heraclio EGFR-NON AF [place] ISLANDER >60 Normal >=60 [facility] Comment on above: Performed By: #### C MP ####[facility] [address]wkhe[address] [place] [id number]. Garima Heraclio Globulin (S) [Mass/Vol] 3.1 g/dL Normal [facility] Comment on above: Performed By: #### C MP ####[facility] Qiytrvwlej[address] [place], [place] [address]Dr. Garima Heraclio Glucose [Mass/Vol] 93 mg/dL Normal 74-[address] [facility] Comment on above: Performed By: #### C MP ####[facility] Wuoeeadbwy[address] [place], [place] [address]Dr. Garima Heraclio Potassium [Moles/Vol] 3.7 mmol/L Normal 3.5-5.1 [facility] Comment on above: Performed By: #### C MP ####[facility] Yfafrbkimh4832[address] [place], [place] [address]Dr. Garima Heraclio Protein [Mass/Vol] 6.9 g/dL Normal 6.4-8.[address] [facility] Comment on above: Performed By: #### C MP ####[facility] Agwxujicuw8[address] [place], [place] [address]Dr. Garima Heraclio Sodium [Moles/Vol] 140 mmol/L Normal 136-[address] [facility] Comment on above: Performed By: #### C MP ####[facility] Ynnlqrpncq[address] [place], [place] [address]Dr. Garima Pulliam Urea nitrogen [Mass/Vol] 8.0 mg/dL Normal 7.0-18.0 [facility] Comment on above: Performed By: #### C MP ####[facility] Azwipxvcbw[address] [place], [place] [address]Dr. Garima Pulliam Urea nitrogen/Creatinine [Mass ratio] 10.8 mg/mg Normal [facility] Comment on above: Performed By: #### C DAVID ####[facility] [address]vv[address]lmdc[address] [place] [address]Dr. Garima Pulliam AMMONIAon 03-30-2023 Ammonia (P) [Moles/Vol] 11 umol/L Normal 11-32 [facility] Comment on above: Performed By: #### A MM ####[facility] Isgpkoimrm[address] [place], [place] [address]Dr. Garima Pulliam CARDIAC NASH ADMITon 023 CK [Catalytic activity/Vol] 232 U/L Normal 39-308 [facility] Comment on above: Performed By: #### C NANCY HERNANDEZ ####[facility] Yycjkknmjx4[address] [place] [address]Dr. Chapisrenu Pulliam CK.MB [Mass/Vol] 4.83 ng/mL Critically high <=3.60 [facility] Comment on above: Performed By: #### C NANCY HERNANDEZ ####[facility] Byujmdikog[address] [place], [place] [address]Dr. Garima Pulliam HSTROP 10.5 pg/mL Normal 4.0-76.1 [facility] Comment on above: Result Comment: CUT- OFF POINTS HAVE BEEN ESTABLISHED BASED ON THE FOURTH UNIVERSAL DEFINITIONS OF MYOCARDIALINFARCTION. THE UPPER REFERENCE LIMIT (URL) OF TROPONIN, DEFINED THE 99TH PERCENTILE OFcTnI DISTRIBUTION IN A REFERENCE POPULATION, HAS BEEN CONFIRMED THE DECISION THRESHOLDFOR IN DIAGNOSIS. Performed By: #### C NANCY HERNANDEZ ####[facility] Znruudbjfi144[address] [place], [place] [address]Dr. Garima Heraclio DORIS 79 ng/mL Normal 16-96 [facility] Comment on above: Performed By: #### C NANCY HERNANDEZ ####[facility] Irqtgusnvd[address] [place], [place] [address]Dr. Garima Heraclio CBC AUTO DIFFon 03-30-2023 BASO # 0.0 103/ul Normal 0.0-0.1 [facility] Comment on above: Performed By: #### C BC ####[facility] [address] [place] [id number]. Garima Pulliam Basophils/100 WBC (Bld) 0.1 % Critically low 0.2-2.0 [facility] Comment on above: Performed By: #### C BC ####[facility] Voofxgaxaa58[address] [place] [id number]. Garima Pulliam EO # 0.3 103/ul Normal 0.0-0.7 [facility] Comment on above: Performed By: #### C BC ####[facility] Z[address]xke[address] [place], [place] [address]Dr. Garima Pulliam Eosinophils/100 WBC (Bld) 3.3 % Normal 0.9-7.0 [facility] Comment on above: Performed By: #### C BC ####[facility] [address]vojmboc[address] [place], [place] [address]Dr. Garima Pulliam Erythrocyte distribution width (RBC) [Ratio] 13.5 % Normal 11.0-15.0 [facility] Comment on above: Performed By: #### C BC ####[facility] [address]zs[address] [place], [place] [address]Dr. Garima Pulliam Hematocrit (Bld) [Volume fraction] 42.9 % Normal 42.0-54.0 [facility] Comment on above: Performed By: #### C BC ####[facility] [address]qgr[address] [place], [place] [address]Dr. Garima Pulliam Hemoglobin (Bld) [Mass/Vol] 13.9 g/dL Critically low 14.0-18.0 [facility] Comment on above: Performed By: #### C BC ####[facility] [address]ybu[address] [place] [id number]. Garima Pulliam IG # 0.01 10e3/ul Normal 0.00-0.03 [facility] Comment on above: Performed By: #### C BC ####[facility] [address]oudctjeg[address] [place], [place] [address]Dr. Garima Pulliam IG % 0.1 % Normal 0.0-0.5 [facility] Comment on above: Performed By: #### C BC ####[facility] [address]amswluum26[address] [place] [id number]. Garima Pulliam LYMPH # 1.7 103/ul Normal 1.2-3.8 [facility] Comment on above: Performed By: #### C BC ####[facility] Epjpbsjjst4936 [place], [place] [address]Nq. Garima Pulliam Lymphocytes/100 WBC (Bld) 22.8 % Normal 20.5-60.0 [facility] Comment on above: Performed By: #### C BC ####[facility] Fbfhpodogf[address] [place] [id number]. Garima Heraclio MANUAL DIFF REQ NO Normal [facility] Comment on above: Performed By: #### C BC ####[facility] [address]cglzdvtf76[address] [place] [phone]. Garima Heraclio MCH (RBC) [Entitic mass] 30.5 pg Normal 25.9-34.0 [facility] Comment on above: Performed By: #### C BC ####[facility] Fbrbtthska1922 [place] [phone]. Garima Pulliam MCHC (RBC) [Mass/Vol] 32.4 g/dL Normal 29.9-35.2 [facility] Comment on above: Performed By: #### C BC ####[facility] Tfellxycks8772 [place] [id number]. Garima Heraclio MCV (RBC) [Entitic vol] 94.1 fL Critically high 80.0-94.0 [facility] Comment on above: Performed By: #### C BC ####[facility] [address]ujolwimss[address] [place] [id number]. Garima Heraclio MONO # 0.7 103/ul Normal 0.3-0.8 [facility] Comment on above: Performed By: #### C BC ####[facility] Xjutyisfyn6872 [place] [phone]. Garima Heraclio Monocytes/100 WBC (Bld) 8.6 % Normal 1.7-12.0 [facility] Comment on above: Performed By: #### C BC ####[facility] Qjiirapoii9253 [place] [phone]. Garima Pulliam NEUT # 4.9 103/ul Normal 1.4-6.5 [facility] Comment on above: Performed By: #### C BC ####[facility] Pspuptjslf0203 [place] [phone]. Garima Pulliam Neutrophils/100 WBC (Bld) 65.1 % Normal 43.0-75.0 [facility] Comment on above: Performed By: #### C BC ####[facility] Wcijussjcd20[address] [place] [phone]. Garima Pulliam Platelet mean volume (Bld) [Entitic vol] 8.5 fL Critically low 9.5-13.5 [facility] Comment on above: Performed By: #### C BC ####[facility] [address]jxwjlnxqx[address] [place] [phone]. Garima Pulliam PLT 219 103/ul Normal 150-450 [facility] Comment on above: Performed By: #### C BC ####[facility] Xngwzjmstg4[address] [place] [phone]. Garima Pulliam RBC 4.56 106/ul Critically low 4.70-6.10 [facility] Comment on above: Performed By: #### C BC ####[facility] Pssmyuiuba9282 [place] [phone]. Garima Pulliam WBC 7.6 103/ul Normal 4.0-11.0 [facility] Comment on above: Performed By: #### C BC ####[facility] Avdpcjnrif7[address] [place] [phone]. Garima Pulliam LACTATE/LACTIC ACIDon 2022 Lactate [Moles/Vol] 1.2 mmol/L Normal 0.4-2.0 [facility] Comment on above: Performed By: #### L ACT ####[facility] Pdpudavdge6[address] [place] [phone]. Garima Pulliam MAGNESIUMon 03-30-2023 Magnesium [Mass/Vol] 1.8 mg/dL Normal 1.8-2.4 [facility] Comment on above: Performed By: #### M G ####[facility] [address]pxbveuuih[address] [place] [address]Dr. Garima Pulliam PROF 14(COMP METB)on 023 Albumin [Mass/Vol] 3.5 g/dL Normal 3.4-5.0 [facility] Comment on above: Performed By: #### C DAVID, CMAANA ROSA ####[facility] Sxypcytifo[address] [place] [address]Dr. Garima Pulliam Albumin/Globulin [Mass ratio] 1.2 {ratio} Normal [facility] Comment on above: Performed By: #### C DAVID, CMAANA ROSA ####[facility] Mushcyxaxp6458 [place] [address]Dr. Garima Pulliam ALP [Catalytic activity/Vol] 85 U/L Normal 46-116 [facility] Comment on above: Performed By: #### C DAVID, CMAANA ROSA ####[facility] [address]wjebsmwbg[address] [place], [place] [address]Dr. Garima Pulliam ALT [Catalytic activity/Vol] 29 U/L Normal 16-63 [facility] Comment on above: Performed By: #### C DAVID, CMAANA ROSA ####[facility] Qshgetpooc7864 [place] [address]Dr. Garima Pulliam Anion gap [Moles/Vol] 8.0 mmol/L Normal [facility] Comment on above: Performed By: #### C DAVID, CMAANA ROSA ####[facility] Edutlborun0[address] [place] [address]Dr. Garima Pulliam AST [Catalytic activity/Vol] 18 U/L Normal 15-37 [facility] Comment on above: Performed By: #### C DAVID, CMADM ####[facility] Inrkjjrlqw30[address] [place] [address]Dr. Garima Pulliam Bilirubin [Mass/Vol] 0.4 mg/dL Normal 0.2-1.0 [facility] Comment on above: Performed By: #### C DAVID, CMADM ####[facility] Kjtizhmesz23[address] [place] [address]Dr. Garima Pulliam Calcium [Mass/Vol] 8.8 mg/dL Normal 8.5-10.1 [facility] Comment on above: Performed By: #### C DAVID, NANCY ####[facility] Tndwffrkxh1062 [place] [address]Dr. Chapisrenu Pulliam Chloride [Moles/Vol] 108 mmol/L Critically high 98-107 [facility] Comment on above: Performed By: #### C DAVID, NANCY ####[facility] Utarkahxxt26[address] [place] [address]Dr. Garima Pulliam CO2 [Moles/Vol] 29.6 mmol/L Normal 21.0-32.0 [facility] [place] Comment on above: Performed By: #### C NANCY HERNANDEZ ####[facility] Cxpaccyrsk[address] [place], [place] [address]Dr. Garima Pulliam Creatinine [Mass/Vol] 0.77 mg/dL Normal 0.70-1.30 [facility] Comment on above: Performed By: #### C NANCY HERNANDEZ ####[facility] Kmnmrtqfns[address] [place], [place] [address]Dr. Garima Heraclio EGFR-AF [place] ISLANDER >60 Normal >=60 [facility] [place] Comment on above: Performed By: #### C NANCY HERNANDEZ ####[facility] Iyjcrwhsmf[address] [place], [place] [address]Dr. Garima Heraclio EGFR-NON AF [place] ISLANDER >60 Normal >=60 [facility] Comment on above: Performed By: #### C NANCY HERNANDEZ ####[facility] Eifylpaiys6[address] [place] [address]Dr. Garima Pulliam Globulin (S) [Mass/Vol] 2.8 g/dL Normal [facility] Comment on above: Performed By: #### C NANCY HERNANDEZ ####[facility] Fdiouofzvc0741 [place] [address]Dr. Garima Pulliam Glucose [Mass/Vol] 207 mg/dL Critically high 74-106 [facility] Comment on above: Performed By: #### C NANCY HERNANDEZ ####[facility] Wkhpnyndor94[address] [place], [place] [address]Dr. Garima Pulliam Potassium [Moles/Vol] 4.6 mmol/L Normal 3.5-5.1 [facility] Comment on above: Performed By: #### C DAVID, NANCY ####[facility] Xyyqaexoha[address] [place] [address]Dr. Garima Pulliam Protein [Mass/Vol] 6.3 g/dL Critically low 6.4-8.2 [facility] Comment on above: Performed By: #### C DAVID, NANCY ####[facility] Ohnjekfbms[address]24 [place] [address]Dr. Garima Pulliam Sodium [Moles/Vol] 141 mmol/L Normal 136-145 [facility] Comment on above: Performed By: #### C DAVID, NANCY ####[facility] Izbaptisgw7014 [place] [address]Dr. Garima Pulliam Urea nitrogen [Mass/Vol] 9.0 mg/dL Normal 7.0-18.0 [facility] Comment on above: Performed By: #### C DAVID, NANCY ####[facility] Uypoqykscf[address] [place] [address]Dr. Garima Pulliam Urea nitrogen/Creatinine [Mass ratio] 11.7 mg/mg Normal [facility] Comment on above: Performed By: #### C DAVID, NANCY ####[facility] Zawaswbxsc[address] [place] [address]Dr. Garima Pulliam XR CHEST 1 Von 03-30-2023 XR CHEST 1 V Normal [facility] BNPon 03-27-2023 Natriuretic peptide B (Bld) [Mass/Vol] 251.0 pg/mL Normal <=900.0 [facility] Comment on above: Performed By: #### C MP, BNP, LIPID ####[facility] Iqptdugrax06[address] [place] [address]Dr. Garima Pulliam GLYCOHEMOGLOBIN A1Con 2022 ADA RECOMMENDATION SEE BELOW Normal [facility] Comment on above: Result Comment: ADA RECOMMENDED LIMIT 4.0 - 6.0 ADA THERAPEUTIC TARGET < 7.0 ACTION SUGGESTED > 7.0 Performed By: #### A 1C ####[facility] Vwvzgogwdu38[address] [place] [address]Dr. Garima Pulliam Glucose [Mass/Vol] 180 mg/dL Normal [facility] Comment on above: Performed By: #### A 1C ####[facility] Awkbyspviv[address] [place], [place] [address]Dr. Chapisrenu Pulliam HbA1c (Bld) [Mass fraction] 7.9 % Critically high 4.5-6.2 [facility] Comment on above: Performed By: #### A 1C ####[facility] [address]fhlfpugy[address] [place], [place] [address]Dr. Garima Pulliam HEMOGRAM AND PLATELon 2022 Hematocrit (Bld) [Volume fraction] 45.7 % Normal 42.0-54.0 [facility] Comment on above: Performed By: #### H H ####[facility] Ydkmbhzfzg[address] [place], [place] [address]Dr. Garima Pulliam Hemoglobin (Bld) [Mass/Vol] 15.1 g/dL Normal 14.0-18.0 [facility] [facility] Comment on above: Performed By: #### H H ####[facility] Cbzmdxmvza[address] [place], [place] [address]Dr. Garima Pulliam MCH (RBC) [Entitic mass] 30.0 pg Normal 25.9-34.0 [facility] Comment on above: Performed By: #### H H ####[facility] Lzwstdzoav97[address] [place], [place] [address]Dr. Garima Pulliam MCHC (RBC) [Mass/Vol] 33.0 g/dL Normal 29.9-35.2 [facility] Comment on above: Performed By: #### H H ####[facility] Mdkkurxsee77[address] [place], [place] [address]Dr. Garima Pulliam MCV (RBC) [Entitic vol] 90.7 fL Normal 80.0-94.0 [facility] Comment on above: Performed By: #### H H ####[facility] Uedtzxinrv35[address] [place], [place] [address]Dr. Garima Pulliam PLT 222 103/ul Normal 150-450 [facility] Comment on above: Performed By: #### H H ####[facility] Padwgxrtje76[address] [place] [id number]. Garima Pulliam RBC 5.04 106/ul Normal 4.70-6.10 [facility] Comment on above: Performed By: #### H H ####[facility] Yaweqrykxi1905 [place] [id number]. Garima Pulliam WBC 8.7 103/ul Normal 4.0-11.0 [facility] Comment on above: Performed By: #### H H ####[facility] Ozlivfkymk5057 [place] [id number]. Garima Pulliam LIPID PROFILEon 03-27-2023 CHOL-HDL RATIO NORM SEE BELOW Normal [facility] Comment on above: Result Comment: 3.3 - 4.4 LOW RISK 4.4 - 7.1 AVERAGE RISK 7.1 - 11.0 MODERATE RISK >11.0 HIGH RISK Performed By: #### C MP, BNP, LIPID ####[facility] Vqltxyegom[address] [place] [address]Dr. Garima Pulliam Cholesterol [Mass/Vol] 113 mg/dL Normal <=200 [facility] Comment on above: Performed By: #### C MP, BNP, LIPID ####[facility] Hootbytbji5247 [place] [address]Dr. Garima Pulliam Cholesterol in HDL [Mass/Vol] 51 mg/dL Normal 40-60 [facility] Comment on above: Performed By: #### C MP, BNP, LIPID ####[facility] Izijeyjfzt47[address] [place] [address]Dr. Garima Pulliam Cholesterol in LDL [Mass/Vol] 49.8 mg/dL Normal [facility] Comment on above: Performed By: #### C MP, BNP, LIPID ####[facility] Wtyyypufgb3408 [place] [address]Dr. Garima Pulliam Cholesterol.total/Cho lesterol in HDL [Mass ratio] 2.2 {ratio} Normal [facility] Comment on above: Performed By: #### C MP, BNP, LIPID ####[facility] Ivksujitmy2480 [place] [address]Dr. Garima Pulliam HDL NORMAL > or = 60 mg/dl - LOW CARDIOVASCULAR RISK <40 mg/dl - HIGH CARDIOVASCULAR RISK Normal [facility] Comment on above: Performed By: #### C MP, BNP, LIPID ####[facility] Rvijhjdmzb6975 [place] [address]Dr. Garima Pulliam LDL CALC NORMAL SEE BELOW Normal [facility] Comment on above: Result Comment: <100 mg/dl OPTIMAL 100 - 129 mg/dl NEAR OR ABOVE OPTIMAL 130 - 159 mg/dl BORDERLINE HIGH 160 - 189 mg/dl HIGH >190 mg/dl VERY HIGH Performed By: #### C MP, BNP, LIPID ####[facility] Nuaqtyspim[address] [place] [address]Dr. Garima Pulliam Triglyceride [Mass/Vol] 61 mg/dL Normal <=150 [facility] Comment on above: Performed By: #### C MP, BNP, LIPID ####[facility] Rrkhzewrlv7642 [place] [address]Dr. Garima Pulliam VLDL CALC 12.2 mg/dL Normal [facility] Comment on above: Performed By: #### C MP, BNP, LIPID ####[facility] Ficrpddzhq8265 [place] [address]Dr. Garima Pulliam PROF 14(COMP METB)on 023 Albumin [Mass/Vol] 3.5 g/dL Normal 3.4-5.0 [facility] Comment on above: Performed By: #### C MP, BNP, LIPID ####[facility] Wyvxqotvee0693 [place] [address]Dr. Garima Pulliam Albumin/Globulin [Mass ratio] 1.2 {ratio} Normal [facility] Comment on above: Performed By: #### C MP, BNP, LIPID ####[facility] Xtemwvcnna6365 [place] [address]Dr. Garima Pulliam ALP [Catalytic activity/Vol] 82 U/L Normal 46-116 [facility] Comment on above: Performed By: #### C MP, BNP, LIPID ####[facility] Gbpxlxezko5749 [place] [address]Dr. Garima Pulliam ALT [Catalytic activity/Vol] 33 U/L Normal 16-63 [facility] Comment on above: Performed By: #### C MP, BNP, LIPID ####[facility] Lgoorixomn1608 [place] [address]Dr. Garima Pulliam Anion gap [Moles/Vol] 9.9 mmol/L Normal [facility] Comment on above: Performed By: #### C MP, BNP, LIPID ####[facility] Xsrfrbwtme2419 [place] [address]Dr. Garima Pulliam AST [Catalytic activity/Vol] 24 U/L Normal 15-37 [facility] Comment on above: Performed By: #### C MP, BNP, LIPID ####[facility] Lnbibnrzbz2521 [place] [address]Dr. Garima Pulliam Bilirubin [Mass/Vol] 0.6 mg/dL Normal 0.2-1.0 [facility] Comment on above: Performed By: #### C MP, BNP, LIPID ####[facility] Uloghgciba5451 [place] [address]Dr. Garima Pulliam Calcium [Mass/Vol] 9.2 mg/dL Normal 8.5-10.1 [facility] Comment on above: Performed By: #### C MP, BNP, LIPID ####[facility] Rovcqntcrv1653 [place] [address]Dr. Garima Pulliam Chloride [Moles/Vol] 106 mmol/L Normal 98-107 [facility] Comment on above: Performed By: #### C MP, BNP, LIPID ####[facility] Hppoigfhyw0729 [place] [address]Dr. Garima Pulliam CO2 [Moles/Vol] 32.3 mmol/L Critically high 21.0-32.0 [facility] Comment on above: Performed By: #### C MP, BNP, LIPID ####[facility] Yqaufcvchs0752 [place] [address]Dr. Garima Pulliam Creatinine [Mass/Vol] 0.70 mg/dL Normal 0.70-1.30 [facility] Comment on above: Performed By: #### C MP, BNP, LIPID ####[facility] Hstvblcfgh7067 [place] [id number]. Garima Pulliam EGFR-AF [place] ISLANDER >60 Normal >=60 [facility] Comment on above: Performed By: #### C MP, BNP, LIPID ####[facility] Ijsmiezvhs5136 [place] [id number]. Garima Pulliam EGFR-NON AF [place] ISLANDER >60 Normal >=60 [facility] Comment on above: Performed By: #### C MP, BNP, LIPID ####[facility] Mddqgvifwi8894 [place] [address]Dr. Garima Pulliam Globulin (S) [Mass/Vol] 2.9 g/dL Normal [facility] Comment on above: Performed By: #### C MP, BNP, LIPID ####[facility] Iqdujjnoda0132 [place] [address]Dr. Garima Pulliam Glucose [Mass/Vol] 111 mg/dL Critically high 74-106 [facility] Comment on above: Performed By: #### C MP, BNP, LIPID ####[facility] Stpyqckujl0233 [place] [address]Dr. Garima Pulliam Potassium [Moles/Vol] 4.2 mmol/L Normal 3.5-5.1 [facility] Comment on above: Performed By: #### C MP, BNP, LIPID ####[facility] Qqkvebgufn3217 [place] [address]Dr. Garima Pulliam Protein [Mass/Vol] 6.4 g/dL Normal 6.4-8.2 [facility] Comment on above: Performed By: #### C MP, BNP, LIPID ####[facility] Skhecseyhu3255 [place] [address]Dr. Garima Pulliam Sodium [Moles/Vol] 144 mmol/L Normal 136-145 [facility] Comment on above: Performed By: #### C MP, BNP, LIPID ####[facility] Vmwehvorio3925 [place] [address]Dr. Garima Pulliam Urea nitrogen [Mass/Vol] 7.0 mg/dL Normal 7.0-18.0 [facility] Comment on above: Performed By: #### C MP, BNP, LIPID ####[facility] Ngyidmunbe687[address] [place], [place] [address]Dr. Garima Pulliam Urea nitrogen/Creatinine [Mass ratio] 10.0 mg/mg Normal [facility] Comment on above: Performed By: #### C MP, BNP, LIPID ####[facility] Jcrooliobe023[address] [place], [place] [address]Dr. Garima Pulliam BNPon 03-22-2023 Natriuretic peptide B (Bld) [Mass/Vol] 103.0 pg/mL Normal <=900.0 [facility] Comment on above: Performed By: #### B INK JET OPERATOR, BMP ####[facility] Fplubxzdor23[address] [place], [place] [address]Dr. Garima Pulliam CBC AUTO DIFFon 03-22-2023 BASO # 0.0 103/ul Normal 0.0-0.1 [facility] Comment on above: Performed By: #### C BC ####[facility] Komjtkguxj9860[address] [place], [place] [address]Dr. Garima Heraclio Basophils/100 WBC (Bld) 0.3 % Normal 0.2-2.0 [facility] Comment on above: Performed By: #### C BC ####[facility] Zugadkcnha95[address] [place], [place] [address]Dr. Garima Pulliam EO # 0.2 103/ul Normal 0.0-0.7 [facility] Comment on above: Performed By: #### C BC ####[facility] Azrwnyxuvy163[address] [place], [place] [address]Dr. Garima Pulliam Eosinophils/100 WBC (Bld) 2.2 % Normal 0.9-7.0 [facility] Comment on above: Performed By: #### C BC ####[facility] Ylbjbgrikb8080[address] [place], [place] [address]Dr. Garima Pulliam Erythrocyte distribution width (RBC) [Ratio] 13.2 % Normal 11.0-15.0 [facility] Comment on above: Performed By: #### C BC ####[facility] Ikowctxxth7300 [place] [id number]. Garima Pulliam Hematocrit (Bld) [Volume fraction] 43.4 % Normal 42.0-54.0 [facility] Comment on above: Performed By: #### C BC ####[facility] Vdncpapytq7254 [place] [address]Dr. Garima Heraclio Hemoglobin (Bld) [Mass/Vol] 14.3 g/dL Normal 14.0-18.0 [facility] Comment on above: Performed By: #### C BC ####[facility] Pbanzimjkj1551 [place] [address]Dr. Garima Pulliam IG # 0.02 10e3/ul Normal 0.00-0.03 [facility] Comment on above: Performed By: #### C BC ####[facility] Ewvwlwugro3940 [place] [address]Dr. Garima Pulliam IG % 0.3 % Normal 0.0-0.5 [facility] Comment on above: Performed By: #### C BC ####[facility] Ykgzmfdemp7515 [place] [address]Dr. Chapisrenu Pulliam LYMPH # 2.0 103/ul Normal 1.2-3.8 [facility] Comment on above: Performed By: #### C BC ####[facility] Woawgbdrdc2982 [place] [address]Dr. Chapisrenu Pulliam Lymphocytes/100 WBC (Bld) 24.8 % Normal 20.5-60.0 [facility] Comment on above: Performed By: #### C BC ####[facility] Gznrfeowco3733 [place] [address]Dr. Chapisrenu Pulliam MANUAL DIFF REQ NO Normal [facility] Comment on above: Performed By: #### C BC ####[facility] Jtfsqnrojt4484 [place] [address]Dr. Garima Heraclio MCH (RBC) [Entitic mass] 30.0 pg Normal 25.9-34.0 [facility] Comment on above: Performed By: #### C BC ####[facility] Dywrnwzqzl27[address] [place], [place] [address]Dr. Garima Pulliam MCHC (RBC) [Mass/Vol] 32.9 g/dL Normal 29.9-35.2 [facility] Comment on above: Performed By: #### C BC ####[facility] Cgiexhppyp4134 [place] [id number]. Garima Pulliam MCV (RBC) [Entitic vol] 91.0 fL Normal 80.0-94.0 [facility] Comment on above: Performed By: #### C BC ####[facility] Fwwlcavror0615 [place] [id number]. Garima Heraclio MONO # 0.8 103/ul Normal 0.3-0.8 [facility] Comment on above: Performed By: #### C BC ####[facility] Opicjiuhae2187 [place] [address]Dr. Chapisrenu Pulliam Monocytes/100 WBC (Bld) 9.7 % Normal 1.7-12.0 [facility] Comment on above: Performed By: #### C BC ####[facility] Uhzaynjioo2165 [place] [address]Dr. Garima Pulliam NEUT # 4.9 103/ul Normal 1.4-6.5 [facility] Comment on above: Performed By: #### C BC ####[facility] Ndronlrxna0338 [place] [id number]. Garima Heraclio Neutrophils/100 WBC (Bld) 62.7 % Normal 43.0-75.0 [facility] Comment on above: Performed By: #### C BC ####[facility] Urzlhbevdd4224 [place] [id number]. Garima Heraclio Platelet mean volume (Bld) [Entitic vol] 8.8 fL Critically low 9.5-13.5 [facility] Comment on above: Performed By: #### C BC ####[facility] Ydbewrtvrm6093 [place] [id number]. Garima Heraclio PLT 198 103/ul Normal 150-450 [facility] Comment on above: Performed By: #### C BC ####[facility] Wqnrmmtxqr6934 [place] [id number]. Garima Heraclio RBC 4.77 106/ul Normal 4.70-6.10 [facility] Comment on above: Performed By: #### C BC ####[facility] Bfkomakpup6373 [place] [id number]. Garima Heraclio WBC 7.9 103/ul Normal 4.0-11.0 [facility] Comment on above: Performed By: #### C BC ####[facility] Stttbpuuoh2508 [place] [id number]. Garima Heraclio D-DIMERon 03-22-2023 D-DIMER 0.85 mg/L FEU Critically high <=0.[address] [facility] Comment on above: Performed By: #### D DIM ####[facility] Xyacmadrdc2783 [place] [address]Dr. Garima Pulliam D-DIMER COMMENTS SEE BELOW Normal [facility] Comment on above: Result Comment: Incr [...] generalized hospitalization. Performed By: #### D DIM ####[facility] Puqtpgmvsi280[address] [place], [place] [address]Dr. Garima Pulliam PROF CHEM 8 (BAS METB)on Anion gap [Moles/Vol] 6.9 mmol/L Normal [facility] Comment on above: Performed By: #### B INK JET OPERATOR, BMP ####[facility] Xvsiouwpqk1094 [place] [address]Dr. Garima Pulliam Calcium [Mass/Vol] 8.9 mg/dL Normal 8.5-10.[address] [facility] Comment on above: Performed By: #### B INK JET OPERATOR, BMP ####[facility] Wztdwoozkh0229 [place] [address]Dr. Garima Pulliam Chloride [Moles/Vol] 101 mmol/L Normal 98-107 [facility] Comment on above: Performed By: #### B INK JET OPERATOR, BMP ####[facility] Prnyoyefrb4627[address] [place], [place] [address]Dr. Chapisrenu Heraclio CO2 [Moles/Vol] 30.7 mmol/L Normal 21.0-32.0 [facility] Comment on above: Performed By: #### B INK JET OPERATOR, BMP ####[facility] Rbvlgahnel814[address] [place], [place] [address]Dr. Garima Pulliam Creatinine [Mass/Vol] 0.82 mg/dL Normal 0.70-1.30 [facility] Comment on above: Performed By: #### B INK JET OPERATOR, BMP ####[facility] Dxbxvosepc25[address] [place], [place] [address]Dr. Garima Pulliam EGFR-AF [place]LANDER >60 Normal >=60 [facility] Comment on above: Performed By: #### B INK JET OPERATOR, BMP ####[facility] Ahirdxmuzg2115[address] [place], [place] [address]Dr. Chapisrenu Heraclio EGFR-NON AF [place] ISLANDER >60 Normal >=60 [facility] Comment on above: Performed By: #### B INK JET OPERATOR, BMP ####[facility] Czzmjmehcw3480[address] [place], [place] [address]Dr. Garima Pulliam Glucose [Mass/Vol] 339 mg/dL Critically high 74-106 [facility] Comment on above: Performed By: #### B INK JET OPERATOR, BMP ####[facility] Coqyfzgvrb8024[address] [place], [place] [address]Dr. Garima Pulliam Potassium [Moles/Vol] 3.6 mmol/L Normal 3.5-5.1 [facility] Comment on above: Performed By: #### B INK JET OPERATOR, BMP ####[facility] Pwyxautize6108[address] [place], [place] [address]Dr. Garima Pulliam Sodium [Moles/Vol] 135 mmol/L Critically low 136-145 [facility] Comment on above: Performed By: #### B INK JET OPERATOR, BMP ####[facility] Ubkagdsfrc5038[address] [place], [place] [address]Dr. Garima Pulliam Urea nitrogen [Mass/Vol] 11.0 mg/dL Normal 7.0-18.0 [facility] Comment on above: Performed By: #### B INK JET OPERATOR, BMP ####[facility] Kalusdhzwx5180[address] [place], [place] [address]Dr. Garima Pulliam Urea nitrogen/Creatinine [Mass ratio] 13.4 mg/mg Normal [facility] Comment on above: Performed By: #### B INK JET OPERATOR, BMP ####[facility] Edcnmlejim85[address] [place], [place] [address]Dr. Garima Pulliam US VERONICA DOP LEG BILon 023 US VERONICA DOP LEG BENOIT Normal [facility] BNPon 03-18-2023 Natriuretic peptide B (Bld) [Mass/Vol] 226.0 pg/mL Normal <=900.0 [facility] Comment on above: Performed By: #### B INK JET OPERATOR, BMP ####[facility] Wtbghororc8[address] [place], [place] [address]Dr. Garima Pulliam CBC AUTO DIFFon 03-18-2023 BASO # 0.0 103/ul Normal 0.0-0.1 [facility] Comment on above: Performed By: #### C BC ####[facility] Ioturkjehl2708[address] [place], [place] [address]Dr. Garima Heraclio Basophils/100 WBC (Bld) 0.2 % Normal 0.2-2.0 [facility] Comment on above: Performed By: #### C BC ####[facility] Rmtpdmaebj3937[address] [place], [place] [address]Dr. Garima Pulliam EO # 0.3 103/ul Normal 0.0-0.7 [facility] Comment on above: Performed By: #### C BC ####[facility] Cvacjqdjij1987[address] [place], [place] [address]Dr. Garima Heraclio Eosinophils/100 WBC (Bld) 2.5 % Normal 0.9-7.0 [facility] Comment on above: Performed By: #### C BC ####[facility] Azxcoycanw3987[address] [place], [place] [address]Dr. Garima Heraclio Erythrocyte distribution width (RBC) [Ratio] 13.2 % Normal 11.0-15.0 [facility] Comment on above: Performed By: #### C BC ####[facility] Oadpdlyfgk4052 [place] [address]DrAdalberto Pulliam Hematocrit (Bld) [Volume fraction] 45.8 % Normal 42.0-54.0 [facility] Comment on above: Performed By: #### C BC ####[facility] Ainnyosbyu5318 [place] [address]DrAdalberto Pulliam Hemoglobin (Bld) [Mass/Vol] 15.3 g/dL Normal 14.0-18.0 [facility] Comment on above: Performed By: #### C BC ####[facility] Htorjzxyyr95[address] [place], [place] [address]DrAdalberto Pulliam IG # 0.02 10e3/ul Normal 0.00-0.03 [facility] Comment on above: Performed By: #### C BC ####[facility] Erdtpdkdvz6760[address] [place], [place] [address]DrAdalberto Pulliam IG % 0.2 % Normal 0.0-0.5 [facility] Comment on above: Performed By: #### C BC ####[facility] Nqfjynumcv4[address] [place], [place] [address]DrAdalberto Pulliam LYMPH # 1.8 103/ul Normal 1.2-3.8 [facility] Comment on above: Performed By: #### C BC ####[facility] Ivqxdareee816[address] [place], [place] [address]DrAdalberto Pulliam Lymphocytes/100 WBC (Bld) 18.3 % Critically low 20.5-60.0 [facility] Comment on above: Performed By: #### C BC ####[facility] Jgkovjwgrc2187[address] [place], [place] [address]DrAdalberto Pulliam MANUAL DIFF REQ NO Normal [facility] Comment on above: Performed By: #### C BC ####[facility] Msuigopgml6264 [place] [address]DrAdalberto Pulliam MCH (RBC) [Entitic mass] 30.5 pg Normal 25.9-34.0 [facility] Comment on above: Performed By: #### C BC ####[facility] Njhnlhxvsw3545 [place] [address]DrAdalberto Pulliam MCHC (RBC) [Mass/Vol] 33.4 g/dL Normal 29.9-35.2 [facility] Comment on above: Performed By: #### C BC ####[facility] Bhmtxpzvbx9637 [place] [address]DrAdalberto Pulliam MCV (RBC) [Entitic vol] 91.2 fL Normal 80.0-94.0 [facility] Comment on above: Performed By: #### C BC ####[facility] Eqtqnaasrw1222[address] [place], [place] [address]DrAdalberto Pulliam MONO # 0.8 103/ul Normal 0.3-0.8 [facility] Comment on above: Performed By: #### C BC ####[facility] Euyulgiopa3918[address] [place], [place] [address]DrAdalberto Pulliam Monocytes/100 WBC (Bld) 7.6 % Normal 1.7-12.0 [facility] Comment on above: Performed By: #### C BC ####[facility] Xxnydlkjqb9267[address] [place], [place] [address]DrAdalberto Pulliam NEUT # 7.0 103/ul Critically high 1.4-6.5 [facility] Comment on above: Performed By: #### C BC ####[facility] Hcwfwceyhw574[address] [place], [place] [address]DrAdalberto Pulliam Neutrophils/100 WBC (Bld) 71.2 % Normal 43.0-75.0 [facility] Comment on above: Performed By: #### C BC ####[facility] Wymsokoyjk7396[address] [place], [place] [address]DrAdalberto Pulliam Platelet mean volume (Bld) [Entitic vol] 8.9 fL Critically low 9.5-13.5 [facility] Comment on above: Performed By: #### C BC ####[facility] Azozkijrye4210[address] [place], [place] [address]DrAdalberto Pulliam PLT 217 103/ul Normal 150-450 [facility] Comment on above: Performed By: #### C BC ####[facility] Jkktrkybhs2941 [place] [address]Dr. Garima Heraclio RBC 5.02 106/ul Normal 4.70-6.10 [facility] Comment on above: Performed By: #### C BC ####[facility] Lyvlbzupvm3864[address] [place], [place] [address]Dr. Garima Pulliam WBC 9.8 103/ul Normal 4.0-11.0 [facility] Comment on above: Performed By: #### C BC ####[facility] Awcbmsbghq899[address] [place], [place] [address]Dr. Garima Heraclio CRPon 03-18-2023 CRP 0.1 mg/dL Normal <=1.0 [facility] Comment on above: Performed By: #### C RP ####[facility] Fnhjokdfsf59[address] [place], [place] [address]Dr. Garima Heraclio PROF CHEM 8 (BAS METB)on Anion gap [Moles/Vol] 10.4 mmol/L Normal [facility] Comment on above: Performed By: #### B INK JET OPERATOR, BMP ####[facility] Hzxdpwqbme3099[address] [place], [place] [address]Dr. Garima Heraclio Calcium [Mass/Vol] 8.8 mg/dL Normal 8.5-10.1 [facility] Comment on above: Performed By: #### B INK JET OPERATOR, BMP ####[facility] Sjqbmpmglj716[address] [place], [place] [address]Dr. Garima Heraclio Chloride [Moles/Vol] 97 mmol/L Critically low 98-107 [facility] Comment on above: Performed By: #### B INK JET OPERATOR, BMP ####[facility] Ldngviorzc3[address] [place], [place] [address]Dr. Garima Pulliam CO2 [Moles/Vol] 31.2 mmol/L Normal 21.0-32.0 [facility] Comment on above: Performed By: #### B INK JET OPERATOR, BMP ####[facility] Rzgmtlkkqr37[address] [place], [place] [address]Dr. Garima Pulliam Creatinine [Mass/Vol] 0.91 mg/dL Normal 0.70-1.30 [facility] Comment on above: Performed By: #### B INK JET OPERATOR, BMP ####[facility] Ibvgpbczes5378 [place] [address]Dr. Garima Pulliam EGFR-AF [place] ISLANDER >60 Normal >=60 [facility] Comment on above: Performed By: #### B INK JET OPERATOR, BMP ####[facility] Ywssmmldxo7607 [place] [id number]. Garima Pulliam EGFR-NON AF [place] ISLANDER >60 Normal >=60 [facility] Comment on above: Performed By: #### B INK JET OPERATOR, BMP ####[facility] [address] [place] [address]Dr. Garima Pulliam Glucose [Mass/Vol] 315 mg/dL Critically high 74-106 T [facility] Comment on above: Performed By: #### B INK JET OPERATOR, BMP ####[facility] [address]wpwatnz[address] [place] [address]Dr. Garima Pulliam Potassium [Moles/Vol] 3.6 mmol/L Normal 3.5-5.1 [facility] Comment on above: Performed By: #### B INK JET OPERATOR, BMP ####[facility] [address]sm[address]tj[address] [place] [address]Dr. Garima Pulliam Sodium [Moles/Vol] 135 mmol/L Critically low 136-145 Th [facility] Comment on above: Performed By: #### B INK JET OPERATOR, BMP ####[facility] Msrwxdeovl[address] [place] [address]Dr. Garima Pulliam Urea nitrogen [Mass/Vol] 7.0 mg/dL Normal 7.0-18.0 [facility] Comment on above: Performed By: #### B INK JET OPERATOR, BMP ####[facility] Zxyjinxfri[address] [place] [address]Dr. Garima Pulliam Urea nitrogen/Creatinine [Mass ratio] 7.7 mg/mg Normal [facility] Comment on above: Performed By: #### B INK JET OPERATOR, BMP ####[facility] Colvjikofr[address] [place] [address]Dr. Garima Pulliam SED RATE WESTERGRENon 2022 SED RATE 8 mm/hr Normal <=20 [facility] Comment on above: Performed By: #### S EDR ####[facility] [address] [place], [place] [address]Dr. Garima Pulliam BNPon 03-16-2023 Natriuretic peptide B (Bld) [Mass/Vol] 241.0 pg/mL Normal <=900.0 [facility] Comment on above: Performed By: #### B INK JET OPERATOR, BMP, HSTROPN ####[facility] Sxobvzcugq[address] [place], [place] [address]Dr. Garima Heraclio CBC AUTO DIFFon 03-16-2023 BASO # 0.0 103/ul Normal 0.0-0.1 [facility] Comment on above: Performed By: #### C BC ####[facility] Clldmzsgby[address] [place], [place] [address]Dr. Chapisrenu Pulliam Basophils/100 WBC (Bld) 0.2 % Normal 0.2-2.0 [facility] Comment on above: Performed By: #### C BC ####[facility] [address]zvumwftrv[address] [place], [place] [address]Dr. Garima Pulliam EO # 0.2 103/ul Normal 0.0-0.7 [facility] Comment on above: Performed By: #### C BC ####[facility] Ludqgtsaim[address] [place], [place] [address]Dr. Chapisrenu Pulliam Eosinophils/100 WBC (Bld) 2.7 % Normal 0.9-7.0 [facility] Comment on above: Performed By: #### C BC ####[facility] Mwjqznoqhw70[address] [place], [place] [address]Dr. Garima Pulliam Erythrocyte distribution width (RBC) [Ratio] 13.1 % Normal 11.0-15.0 [facility] Comment on above: Performed By: #### C BC ####[facility] Rjdxrcbnuq6[address] [place], [place] [address]Dr. Garima Pulliam Hematocrit (Bld) [Volume fraction] 41.8 % Critically low 42.0-54.0 [facility] Comment on above: Performed By: #### C BC ####[facility] [address]emdnfvbmk[address] [place] [address]Dr. Garima Pulliam Hemoglobin (Bld) [Mass/Vol] 14.0 g/dL Normal 14.0-18.0 [facility] Comment on above: Performed By: #### C BC ####[facility] Fdkivomncz[address] [place] [address]Dr. Garima Pulliam IG # 0.03 10e3/ul Normal 0.00-0.03 [facility] Comment on above: Performed By: #### C BC ####[facility] Tziayrpyky[address] [place] [address]Dr. Garima Pulliam IG % 0.3 % Normal 0.0-0.5 [facility] Comment on above: Performed By: #### C BC ####[facility] Aiyaztutaw[address] [place], [place] [address]Dr. Chapisrenu Pulliam LYMPH # 2.1 103/ul Normal 1.2-3.8 [facility] Comment on above: Performed By: #### C BC ####[facility] Rnlgcrroks27[address] [place], [place] [address]Dr. Chapisrenu Pulliam Lymphocytes/100 WBC (Bld) 24.2 % Normal 20.5-60.0 [facility] Comment on above: Performed By: #### C BC ####[facility] [address]gfa[address] [place] [address]Dr. Garima Pulliam MANUAL DIFF REQ NO Normal [facility] Comment on above: Performed By: #### C BC ####[facility] [address]aejyyoel[address] [place] [address]Dr. Garima Pulliam MCH (RBC) [Entitic mass] 30.2 pg Normal 25.9-34.0 [facility] Comment on above: Performed By: #### C BC ####[facility] [address]qnnpwo[address] [place] [address]Dr. Garima Pulliam MCHC (RBC) [Mass/Vol] 33.5 g/dL Normal 29.9-35.2 [facility] Comment on above: Performed By: #### C BC ####[facility] [address] [place] [id number]. Garima Pulliam MCV (RBC) [Entitic vol] 90.1 fL Normal 80.0-94.0 [facility] Comment on above: Performed By: #### C BC ####[facility] Hunmrskfgz[address] [place] [id number]. Garima Pulliam MONO # 0.6 103/ul Normal 0.3-0.8 [facility] Comment on above: Performed By: #### C BC ####[facility] Etvpwevvav[address] [place] [address]Dr. Garima Heraclio Monocytes/100 WBC (Bld) 7.4 % Normal 1.7-12.0 [facility] Comment on above: Performed By: #### C BC ####[facility] Beqbekidlt90[address] [place], [place] [address]Dr. Garima Pulliam NEUT # 5.6 103/ul Normal 1.4-6.5 [facility] Comment on above: Performed By: #### C BC ####[facility] Qjroumbrwe66[address] [place], [place] [address]Dr. Garima Heraclio Neutrophils/100 WBC (Bld) 65.2 % Normal 43.0-75.0 [facility] Comment on above: Performed By: #### C BC ####[facility] [address]ertxoruvx[address] [place] [id number]. Garima Heraclio Platelet mean volume (Bld) [Entitic vol] 8.7 fL Critically low 9.5-13.5 [facility] Comment on above: Performed By: #### C BC ####[facility] [address] [place], [place] [address]Dr. Garima Heraclio PLT 195 103/ul Normal 150-450 [facility] Comment on above: Performed By: #### C BC ####[facility] [address] [place] [id number]. Garima Pulliam RBC 4.64 106/ul Critically low 4.70-6.10 [facility] Comment on above: Performed By: #### C BC ####[facility] [address]zvhfk[address] [place] [address]Dr. Garima Pulliam WBC 8.6 103/ul Normal 4.0-11.0 [facility] Comment on above: Performed By: #### C BC ####[facility] [address]ivlmchmbo[address] [place] [address]Dr. Garima Pulliam PROF CHEM 8 (BAS METB)on Anion gap [Moles/Vol] 6.7 mmol/L Normal [facility] Comment on above: Performed By: #### B INK JET OPERATOR, BMP, HSTROPN ####[facility] [address]vffcbw[address] [place] [address]Dr. Garima Pulliam Calcium [Mass/Vol] 8.8 mg/dL Normal 8.5-10.1 [facility] Comment on above: Performed By: #### B INK JET OPERATOR, BMP, HSTROPN ####[facility] X[address]qcwbacbq[address] [place], [place] [address]Dr. Garima Pulliam Chloride [Moles/Vol] 106 mmol/L Normal 98-107 [facility] Comment on above: Performed By: #### B INK JET OPERATOR, BMP, HSTROPN ####[facility] Cxxkizdhhr[address] [place], [place] [address]Dr. Garima Pulliam CO2 [Moles/Vol] 31.4 mmol/L Normal 21.0-32.0 [facility] Comment on above: Performed By: #### B INK JET OPERATOR, BMP, HSTROPN ####[facility] Xterpljjsc[address] [place], [place] [address]Dr. Garima Pulliam Creatinine [Mass/Vol] 0.75 mg/dL Normal 0.70-1.30 [facility] Comment on above: Performed By: #### B INK JET OPERATOR, BMP, HSTROPN ####[facility] [address] [place] [address]Dr. Garima Pulliam EGFR-AF [place]ER >60 Normal >=60 [facility] Comment on above: Performed By: #### B INK JET OPERATOR, BMP, HSTROPN ####[facility] [address]wnqewv[address] [place] [address]Dr. Garima Pulliam EGFR-NON AF [place]ER >60 Normal >=60 [facility] Comment on above: Performed By: #### B INK JET OPERATOR, BMP, HSTROPN ####[facility] [address]djxaww[address] [place] [address]Dr. Garima Pulliam Glucose [Mass/Vol] 161 mg/dL Critically high 74-106 T [facility] Comment on above: Performed By: #### B INK JET OPERATOR, BMP, HSTROPN ####[facility] Bl[address]cghlbe[address] [place] [address]Dr. Garima Pulliam Potassium [Moles/Vol] 4.1 mmol/L Normal 3.5-5.1 [facility] Comment on above: Performed By: #### B INK JET OPERATOR, BMP, HSTROPN ####[facility] [address]xfr[address]jbubk[address] [place] [address]Dr. Garima Pulliam Sodium [Moles/Vol] 140 mmol/L Normal 136-145 [facility] Comment on above: Performed By: #### B INK JET OPERATOR, BMP, HSTROPN ####[facility] [address]ovsezzh[address] [place] [address]Dr. Garima Pulliam Urea nitrogen [Mass/Vol] 7.0 mg/dL Normal 7.0-18.0 [facility] Comment on above: Performed By: #### B INK JET OPERATOR, BMP, HSTROPN ####[facility] Xfvtydcbdj[address] [place] [address]Dr. Garima Pulliam Urea nitrogen/Creatinine [Mass ratio] 9.3 mg/mg Normal [facility] Comment on above: Performed By: #### B INK JET OPERATOR, BMP, HSTROPN ####[facility] [address]inee[address] [place] [address]Dr. Garima Pulliam TROPONIN, HIGH SENSITIVITYon 03-16-2023 HSTROP 9.7 pg/mL Normal 4.0-76.1 [facility] Comment on above: Result Comment: CUT- OFF POINTS HAVE BEEN ESTABLISHED BASED ON THE FOURTH UNIVERSAL DEFINITIONS OF MYOCARDIALINFARCTION. THE UPPER REFERENCE LIMIT (URL) OF TROPONIN, DEFINED THE 99TH PERCENTILE OFcTnI DISTRIBUTION IN A REFERENCE POPULATION, HAS BEEN CONFIRMED THE DECISION THRESHOLDFOR IN DIAGNOSIS. Performed By: #### B INK JET OPERATOR, BMP, HSTROPN ####[facility] [address]vuqz[address] [place] [address]Dr. Garima Pulliam XR CHEST 1 Von 03-16-2023 XR CHEST 1 V Normal [facility] BNPon 03-06-2023 Natriuretic peptide B (Bld) [Mass/Vol] 111.0 pg/mL Normal <=900.0 [facility] Comment on above: Performed By: #### C MP, BNP, CK ####[facility] Jrudqaervd[address] [place] [address]Dr. Chapisrenu Pulliam CBC AUTO DIFFon 03-06-2023 BASO # 0.0 103/ul Normal 0.0-0.1 [facility] Comment on above: Performed By: #### C BC ####[facility] Zmvctxnbgq36[address] [place], [place] [address]Dr. Garima Pulliam Basophils/100 WBC (Bld) 0.2 % Normal 0.2-2.0 [facility] Comment on above: Performed By: #### C BC ####[facility] Lrrglvcifd[address] [place], [place] [address]Dr. Garima Pulliam EO # 0.3 103/ul Normal 0.0-0.7 [facility] Comment on above: Performed By: #### C BC ####[facility] Qmytusfyba64[address] [place], [place] [address]Dr. Garima Pulliam Eosinophils/100 WBC (Bld) 3.5 % Normal 0.9-7.0 [facility] Comment on above: Performed By: #### C BC ####[facility] Zhfjwasokx[address] [place], [place] [address]Dr. Garima Pulliam Erythrocyte distribution width (RBC) [Ratio] 13.3 % Normal 11.0-15.0 [facility] Comment on above: Performed By: #### C BC ####[facility] Xhkswwmayc38[address] [place], [place] [address]Dr. Garima Pulliam Hematocrit (Bld) [Volume fraction] 43.7 % Normal 42.0-54.0 [facility] Comment on above: Performed By: #### C BC ####[facility] K[address]quuiiwm[address] [place] [address]Dr. Garima Pulliam Hemoglobin (Bld) [Mass/Vol] 14.7 g/dL Normal 14.0-18.0 [facility] Comment on above: Performed By: #### C BC ####[facility] Sogajbotdw[address] [place] [address]Dr. Chapisrenu Heraclio IG # 0.03 10e3/ul Normal 0.00-0.03 [facility] Comment on above: Performed By: #### C BC ####[facility] Tisvpdptlu[address] [place], [place] [address]Dr. Garima Pulliam IG % 0.4 % Normal 0.0-0.5 [facility] Comment on above: Performed By: #### C BC ####[facility] Nksppdylcn[address] [place], [place] [address]Dr. Garima Pulliam LYMPH # 2.0 103/ul Normal 1.2-3.8 [facility] Comment on above: Performed By: #### C BC ####[facility] Eafqhvymtb[address] [place], [place] [address]DrAdalberto Pulliam Lymphocytes/100 WBC (Bld) 23.7 % Normal 20.5-60.0 [facility] Comment on above: Performed By: #### C BC ####[facility] Kkwmospmli[address] [place] [address]Dr. Garima Pulliam MANUAL DIFF REQ NO Normal [facility] Comment on above: Performed By: #### C BC ####[facility] [address]pc[address]psavl[address] [place] [id number] Pulliam MCH (RBC) [Entitic mass] 30.1 pg Normal 25.9-34.0 [facility] Comment on above: Performed By: #### C BC ####[facility] Vsszeeusmf[address] [place] [id number]. Garima Pulliam MCHC (RBC) [Mass/Vol] 33.6 g/dL Normal 29.9-35.2 [facility] Comment on above: Performed By: #### C BC ####[facility] [address]uyjipfxj[address] [place] [address]Dr. Garima Heraclio MCV (RBC) [Entitic vol] 89.4 fL Normal 80.0-94.0 [facility] Comment on above: Performed By: #### C BC ####[facility] Iraedhzmyy[address] [place] [address]Dr. Garima Pulliam MONO # 0.8 103/ul Normal 0.3-0.8 [facility] Comment on above: Performed By: #### C BC ####[facility] Umzinzrskd9[address] [place] [address]Dr. Garima Pulliam Monocytes/100 WBC (Bld) 9.0 % Normal 1.7-12.0 [facility] Comment on above: Performed By: #### C BC ####[facility] Gjkvvjpvxy[address] [place], [place] [address]Dr. Garima Pulliam NEUT # 5.4 103/ul Normal 1.4-6.5 [facility] Comment on above: Performed By: #### C BC ####[facility] Qwyvsqeost[address] [place], [place] [address]Dr. Garima Pulliam Neutrophils/100 WBC (Bld) 63.2 % Normal 43.0-75.0 [facility] Comment on above: Performed By: #### C BC ####[facility] Xatvxpvgus[address] [place], [place] [address]Dr. Garima Pulliam Platelet mean volume (Bld) [Entitic vol] 9.0 fL Critically low 9.5-13.5 [facility] Comment on above: Performed By: #### C BC ####[facility] Xjlhcgemhf[address] [place], [place] [address]Dr. Garima Pulliam PLT 218 103/ul Normal 150-450 [facility] Comment on above: Performed By: #### C BC ####[facility] F[address]himlcyk[address] [place] [id number]. Garima Pulliam RBC 4.89 106/ul Normal 4.70-6.10 [facility] Comment on above: Performed By: #### C BC ####[facility] [address]rmbwqcumo[address] [place] [address]Dr. Garima Pulliam WBC 8.5 103/ul Normal 4.0-11.0 [facility] Comment on above: Performed By: #### C BC ####[facility] Vllmcloxgo[address] [place] [address]Dr. Garima Pulliam CPKon 03-06-2023 CK [Catalytic activity/Vol] 191 U/L Normal 39-308 [facility] Comment on above: Performed By: #### C MP, BNP, CK ####[facility] Kdjhagkuqj[address] [place] [address]Dr. Garima Pulliam PROF 14(COMP METB)on 023 Albumin [Mass/Vol] 3.6 g/dL Normal 3.4-5.0 [facility] Comment on above: Performed By: #### C MP, BNP, CK ####[facility] Iz[address]ebvibl[address] [place] [address]Dr. Garima Pulliam Albumin/Globulin [Mass ratio] 1.2 {ratio} Normal [facility] Comment on above: Performed By: #### C MP, BNP, CK ####[facility] Mahxwlhbkp[address] [place] [address]Dr. Garima Pulliam ALP [Catalytic activity/Vol] 91 U/L Normal 46-116 [facility] Comment on above: Performed By: #### C MP, BNP, CK ####[facility] Cadnhsxqqm[address] [place] [address]Dr. Garima Pulliam ALT [Catalytic activity/Vol] 33 U/L Normal 16-63 [facility] Comment on above: Performed By: #### C MP, BNP, CK ####[facility] Bqmgeduyln4[address] [place] [address]Dr. Garima Pulliam Anion gap [Moles/Vol] 10.3 mmol/L Normal [facility] Comment on above: Performed By: #### C MP, BNP, CK ####[facility] Jfyrpkqvtc27[address] [place] [address]Dr. Garima Pulliam AST [Catalytic activity/Vol] 17 U/L Normal 15-37 [facility] Comment on above: Performed By: #### C MP, BNP, CK ####[facility] Bbidgrtxai[address] [place] [address]Dr. Garima Pulliam Bilirubin [Mass/Vol] 0.4 mg/dL Normal 0.2-1.0 [facility] Comment on above: Performed By: #### C MP, BNP, CK ####[facility] Evkysmtsby[address] [place] [address]Dr. Garima Pulliam Calcium [Mass/Vol] 9.1 mg/dL Normal 8.5-10.[address] [facility] Comment on above: Performed By: #### C MP, BNP, CK ####[facility] Bdunmrthgd[address] [place] [address]Dr. Garima Pulliam Chloride [Moles/Vol] 102 mmol/L Normal 98-107 [facility] Comment on above: Performed By: #### C MP, BNP, CK ####[facility] Yqorbkcbpz[address] [place] [address]Dr. Garima Pulliam CO2 [Moles/Vol] 29.7 mmol/L Normal 21.0-32.0 [facility] Comment on above: Performed By: #### C MP, BNP, CK ####[facility] Wljjarypjp[address] [place] [address]Dr. Garima Pulliam Creatinine [Mass/Vol] 0.79 mg/dL Normal 0.70-1.30 [facility] Comment on above: Performed By: #### C MP, BNP, CK ####[facility] [address]uppurhyrt[address] [place] [address]Dr. Garima Pulliam EGFR-AF [place]ER >60 Normal >=60 [facility] Comment on above: Performed By: #### C MP, BNP, CK ####[facility] Owtjdmaivj64[address] [place] [address]Dr. Garima Pulliam EGFR-NON AF [place]ER >60 Normal >=60 [facility] Comment on above: Performed By: #### C MP, BNP, CK ####[facility] Fjngykradm[address] [place] [address]Dr. Garima Pulliam Globulin (S) [Mass/Vol] 3.0 g/dL Normal [facility] Comment on above: Performed By: #### C MP, BNP, CK ####[facility] Bhhknqjlqz[address] [place] [address]Dr. Garima Pulliam Glucose [Mass/Vol] 202 mg/dL Critically high 74-106 [facility] Comment on above: Performed By: #### C MP, BNP, CK ####[facility] Ezjouaspqw[address] [place] [address]Dr. Garima Pulliam Potassium [Moles/Vol] 4.0 mmol/L Normal 3.5-5.1 [facility] Comment on above: Performed By: #### C MP, BNP, CK ####[facility] Zkggdnhndm6[address] [place] [address]Dr. Garima Pulliam Protein [Mass/Vol] 6.6 g/dL Normal 6.4-8.2 [facility] Comment on above: Performed By: #### C MP, BNP, CK ####[facility] Nooykmfwiy[address] [place], [place] [address]Dr. Garima Pulliam Sodium [Moles/Vol] 138 mmol/L Normal 136-145 [facility] Comment on above: Performed By: #### C MP, BNP, CK ####[facility] Gklfzzgvys[address] [place], [place] [address]Dr. Garima Pulliam Urea nitrogen [Mass/Vol] 10.0 mg/dL Normal 7.0-18.0 [facility] Comment on above: Performed By: #### C MP, BNP, CK ####[facility] Aanxsfhyam[address] [place] [address]Dr. Garima Pulliam Urea nitrogen/Creatinine [Mass ratio] 12.7 mg/mg Normal [facility] Comment on above: Performed By: #### C MP, BNP, CK ####[facility] Jsatnvijxk[address] [place] [address]Dr. Garima Pulliam US VERONICA DOP LEG BILon 023 US VERONICA DOP LEG BENOIT Normal [facility] CBC AUTO DIFFon 01-13-2023 BASO # 0.0 103/ul Normal 0.0-0.1 [facility] Comment on above: Performed By: #### C BC ####[facility] Nnqsjqqmjy4786 [place] [id number]. Chapisrenu Pulliam Basophils/100 WBC (Bld) 0.0 % Critically low 0.2-2.0 [facility] Comment on above: Performed By: #### C BC ####[facility] Jhxayfovrf50[address] [place] [address]Dr. Garima Pulliam EO # 0.0 103/ul Normal 0.0-0.7 [facility] Comment on above: Performed By: #### C BC ####[facility] Kasosujzln[address] [place], [place] [address]Dr. Garima Pulliam Eosinophils/100 WBC (Bld) 0.0 % Critically low 0.9-7.0 [facility] Comment on above: Performed By: #### C BC ####[facility] Oehjnbkpan7[address] [place] [address]Dr. Garima Pulliam Erythrocyte distribution width (RBC) [Ratio] 13.2 % Normal 11.0-15.0 [facility] Comment on above: Performed By: #### C BC ####[facility] Nruyqcuvnn[address] [place], [place] [address]Dr. Garima Pulliam Hematocrit (Bld) [Volume fraction] 46.7 % Normal 42.0-54.0 [facility] Comment on above: Performed By: #### C BC ####[facility] Wftrxctbdq[address] [place], [place] [address]Dr. Garima Pulliam Hemoglobin (Bld) [Mass/Vol] 15.6 g/dL Normal 14.0-18.0 [facility] Comment on above: Performed By: #### C BC ####[facility] Qqwjqrjswy[address] [place], [place] [address]Dr. Garima Pulliam IG # 0.01 10e3/ul Normal 0.00-0.03 [facility] Comment on above: Performed By: #### C BC ####[facility] Obkdecsrex0252 [place] [id number]. Garima Pulliam IG % 0.2 % Normal 0.0-0.5 [facility] Comment on above: Performed By: #### C BC ####[facility] Bcmvrwbhls7752 [place] [id number]. Garima Pulliam LYMPH # 0.8 103/ul Critically low 1.2-3.8 [facility] Comment on above: Performed By: #### C BC ####[facility] Spgjkryonc5987 [place] [id number]. Garima Pulliam Lymphocytes/100 WBC (Bld) 12.7 % Critically low 20.5-60.0 [facility] Comment on above: Performed By: #### C BC ####[facility] Sybmkaknip[address] [place] [address]Dr. Garima Pulliam MANUAL DIFF REQ NO Normal [facility] Comment on above: Performed By: #### C BC ####[facility] Bxlivkpnag7302 [place] [phone]. Garima Pulliam MCH (RBC) [Entitic mass] 30.2 pg Normal 25.9-34.0 [facility] Comment on above: Performed By: #### C BC ####[facility] Exvqbllsms7354 [place] [phone]. Garima Pulliam MCHC (RBC) [Mass/Vol] 33.4 g/dL Normal 29.9-35.2 [facility] Comment on above: Performed By: #### C BC ####[facility] Fcbhinhdro6139 [place] [id number]. Garima Pulliam MCV (RBC) [Entitic vol] 90.3 fL Normal 80.0-94.0 [facility] Comment on above: Performed By: #### C BC ####[facility] Drhlmlpfrm1102 [place] [id number]. Garima Heraclio MONO # 0.1 103/ul Critically low 0.3-0.8 [facility] Comment on above: Performed By: #### C BC ####[facility] Urbnzqbtqg4460 [place] [id number]. Garima Pulliam Monocytes/100 WBC (Bld) 0.9 % Critically low 1.7-12.0 [facility] Comment on above: Performed By: #### C BC ####[facility] Zmhruwgiac[address] [place] [id number]. Garima Pulliam NEUT # 5.6 103/ul Normal 1.4-6.5 [facility] Comment on above: Performed By: #### C BC ####[facility] Dewnfidlqb3[address] [place] [id number]. Garima Pulliam Neutrophils/100 WBC (Bld) 86.2 % Critically high 43.0-75.0 [facility] Comment on above: Performed By: #### C BC ####[facility] Islrkkultk[address] [place] [address]Dr. Garima Pulliam Platelet mean volume (Bld) [Entitic vol] 9.1 fL Critically low 9.5-13.5 [facility] Comment on above: Performed By: #### C BC ####[facility] Zpnrdbdpam[address] [place], [place] [address]Dr. Garima Pulliam PLT 169 103/ul Normal 150-450 [facility] Comment on above: Performed By: #### C BC ####[facility] Jonqetlpmn233[address] [place], [place] [address]Dr. Garima Pulliam RBC 5.17 106/ul Normal 4.70-6.10 [facility] Comment on above: Performed By: #### C BC ####[facility] Lyhrlsbwsf[address] [place], [place] [address]Dr. Garima Pulliam WBC 6.5 103/ul Normal 4.0-11.0 [facility] Comment on above: Performed By: #### C BC ####[facility] Wuzcuoopaj48[address] [place], [place] [address]Dr. Garima Pulliam D-DIMERon 01-13-2023 D-DIMER 0.41 mg/L FEU Normal <=0.59 [facility] Comment on above: Performed By: #### D DIM ####[facility] Opmonsphvp[address] [place] [address]Dr. Garima Pulliam D-DIMER COMMENTS SEE BELOW Normal [facility] Comment on above: Result Comment: Incr eases [...] generalized hospitalization. Performed By: #### D DIM ####[facility] Utqunadmia65[address] [place], [place] [address]Dr. Garima Pulliam PROF 14(COMP METB)on 023 Albumin [Mass/Vol] 3.4 g/dL Normal 3.4-5.0 [facility] Comment on above: Performed By: #### C MP ####[facility] Nhvfpuxqjw[address] [place], [place] [address]Dr. Garima Pulliam Albumin/Globulin [Mass ratio] 1.3 {ratio} Normal [facility] Comment on above: Performed By: #### C MP ####[facility] Uzytvzgsil6[address] [place], [place] [address]Dr. Garima Pulliam ALP [Catalytic activity/Vol] 83 U/L Normal 46-116 [facility] Comment on above: Performed By: #### C MP ####[facility] Jpxwitogyx5[address] [place], [place] [address]Dr. Garima Pulliam ALT [Catalytic activity/Vol] 25 U/L Normal 16-63 [facility] Comment on above: Performed By: #### C MP ####[facility] Snaxukkutv[address] [place] [address]Dr. Garima Pulliam Anion gap [Moles/Vol] 14.5 mmol/L Normal [facility] Comment on above: Performed By: #### C MP ####[facility] Sjokfauqun43[address] [place], [place] [address]Dr. Garima Pulliam AST [Catalytic activity/Vol] 19 U/L Normal 15-37 [facility] Comment on above: Performed By: #### C MP ####[facility] Mopfenejrc0668[address] [place], [place] [address]Dr. Garima Pulliam Bilirubin [Mass/Vol] 0.4 mg/dL Normal 0.2-1.0 [facility] Comment on above: Performed By: #### C MP ####[facility] Qdxwreqbci750[address] [place], [place] [address]Dr. Garima Pulliam Calcium [Mass/Vol] 8.7 mg/dL Normal 8.5-10.1 [facility] Comment on above: Performed By: #### C MP ####[facility] Hkccvlpyff7[address] [place], [place] [address]Dr. Garima Pulliam Chloride [Moles/Vol] 104 mmol/L Normal 98-107 [facility] Comment on above: Performed By: #### C MP ####[facility] Vmzaqiishk099826 [address] [place], [place] [address]Dr. Garima Pulliam CO2 [Moles/Vol] 24.5 mmol/L Normal 21.0-32.0 [facility] Comment on above: Performed By: #### C MP ####[facility] Lmxdzwpadn2425[address] [place], [place] [address]Dr. Garima Pulliam Creatinine [Mass/Vol] 0.70 mg/dL Normal 0.70-1.30 [facility] Comment on above: Performed By: #### C MP ####[facility] Vyopbccvma15[address] [place], [place] [address]Dr. Garima Heraclio EGFR-AF SOL[place] ISLANDER >60 Normal >=60 [facility] Comment on above: Performed By: #### C MP ####[facility] Ucpudpwdzi2069[address] [place], [place] [address]Dr. Chapisrenu Heraclio EGFR-NON AF [place] ISLANDER >60 Normal >=60 [facility] Comment on above: Performed By: #### C MP ####[facility] Mqvkdzzdlv638[address] [place], [place] [address]Dr. Chapisrenu Pulliam Globulin (S) [Mass/Vol] 2.6 g/dL Normal [facility] Comment on above: Performed By: #### C MP ####[facility] Ielenftojl[address] [place] [address]Dr. Garima Pulliam Glucose [Mass/Vol] 196 mg/dL Critically high 74-106 [facility] Comment on above: Performed By: #### C MP ####[facility] Gueflwfalg28[address] [place] [address]Dr. Garima Pulliam Potassium [Moles/Vol] 4.0 mmol/L Normal 3.5-5.1 [facility] Comment on above: Performed By: #### C MP ####[facility] Jfibnxyvyk45[address] [place] [address]Dr. Garima Pulliam Protein [Mass/Vol] 6.0 g/dL Critically low 6.4-8.2 [facility] Comment on above: Performed By: #### C MP ####[facility] Elzdwpfafm2388[address] [place], [place] [address]Dr. Garima Pulliam Sodium [Moles/Vol] 139 mmol/L Normal 136-145 [facility] Comment on above: Performed By: #### C MP ####[facility] Naqsofuiht46[address] [place], [place] [address]Dr. Garima Pulliam Urea nitrogen [Mass/Vol] 7.0 mg/dL Normal 7.0-18.0 [facility] Comment on above: Performed By: #### C MP ####[facility] Zcoruaqvxk6975[address] [place], [place] [address]Dr. Garima Heraclio Urea nitrogen/Creatinine [Mass ratio] 10.0 mg/mg Normal [facility] Comment on above: Performed By: #### C MP ####[facility] Bfnzqflqha254[address] [place], [place] [address]Dr. Garima Heraclio BNPon 01-12-2023 Natriuretic peptide B (Bld) [Mass/Vol] 141.0 pg/mL Normal <=900.0 [facility] Comment on above: Performed By: #### C MP, BNP, HSTROPN ####[facility] Evvqbrdeen6566[address] [place], [place] [address]Dr. Garima Heraclio CBC AUTO DIFFon 01-12-2023 BASO # 0.0 103/ul Normal 0.0-0.1 [facility] Comment on above: Performed By: #### C BC ####[facility] G[address]dtpotzu[address] [place] [id number]. Garima Heraclio Basophils/100 WBC (Bld) 0.2 % Normal 0.2-2.0 [facility] Comment on above: Performed By: #### C BC ####[facility] Nsbchzvizz6[address] [place] [address]Dr. Garima Heraclio EO # 0.2 103/ul Normal 0.0-0.7 [facility] Comment on above: Performed By: #### C BC ####[facility] Vwqnaitohd13[address] [place] [address]Dr. Garima Heraclio Eosinophils/100 WBC (Bld) 2.7 % Normal 0.9-7.0 [facility] Comment on above: Performed By: #### C BC ####[facility] Kabtxsbkye0529[address] [place], [place] [address]Dr. Garima Pulliam Erythrocyte distribution width (RBC) [Ratio] 13.3 % Normal 11.0-15.0 [facility] Comment on above: Performed By: #### C BC ####[facility] Zlejoeatrb146[address] [place], [place] [address]Dr. Garima Pulliam Hematocrit (Bld) [Volume fraction] 42.3 % Normal 42.0-54.0 [facility] Comment on above: Performed By: #### C BC ####[facility] Aoqythuhhd[address] [place], [place] [address]Dr. Garima Pulliam Hemoglobin (Bld) [Mass/Vol] 14.3 g/dL Normal 14.0-18.0 [facility] Comment on above: Performed By: #### C BC ####[facility] Tomrqhmnhp7385[address] [place], [place] [address]Dr. Garima Pulliam IG # 0.02 10e3/ul Normal 0.00-0.03 [facility] Comment on above: Performed By: #### C BC ####[facility] Rusvemosiu[address] [place] [id number]. Garima Pulliam IG % 0.2 % Normal 0.0-0.5 [facility] Comment on above: Performed By: #### C BC ####[facility] Jrzxjudngk7928 [place] [id number]. Garima Pulliam LYMPH # 2.6 103/ul Normal 1.2-3.8 [facility] Comment on above: Performed By: #### C BC ####[facility] Wfnnlbvaai9[address] [place] [id number]. Garima Heraclio Lymphocytes/100 WBC (Bld) 29.6 % Normal 20.5-60.0 [facility] Comment on above: Performed By: #### C BC ####[facility] [address]ytrauf[address] [place] [address]Dr. Garima Heraclio MANUAL DIFF REQ NO Normal [facility] Comment on above: Performed By: #### C BC ####[facility] Gjsfenoqai5[address] [place] [id number]. Garima Pulliam MCH (RBC) [Entitic mass] 30.2 pg Normal 25.9-34.0 [facility] Comment on above: Performed By: #### C BC ####[facility] Mujwxybeug4[address] [place] [address]Dr. Garima Pulliam MCHC (RBC) [Mass/Vol] 33.8 g/dL Normal 29.9-35.2 [facility] Comment on above: Performed By: #### C BC ####[facility] Buovnmmnie[address] [place] [id number]. Garima Pulliam MCV (RBC) [Entitic vol] 89.2 fL Normal 80.0-94.0 [facility] Comment on above: Performed By: #### C BC ####[facility] Lirkrxzqfk4[address] [place], [place] [address]Dr. Chapisrenu Pulliam MONO # 0.7 103/ul Normal 0.3-0.8 [facility] Comment on above: Performed By: #### C BC ####[facility] Zinkzccrcm35[address] [place] [id number]. Garima Pulliam Monocytes/100 WBC (Bld) 8.3 % Normal 1.7-12.0 [facility] Comment on above: Performed By: #### C BC ####[facility] Rtdabnywsy1675 [place] [id number]. Garima Pulliam NEUT # 5.1 103/ul Normal 1.4-6.5 [facility] Comment on above: Performed By: #### C BC ####[facility] Vwmmgochpk73[address] [place] [id number]. Garima Pulliam Neutrophils/100 WBC (Bld) 59.0 % Normal 43.0-75.0 [facility] Comment on above: Performed By: #### C BC ####[facility] Djuzpoexer[address] [place] [address]Dr. Garima Pulliam Platelet mean volume (Bld) [Entitic vol] 8.7 fL Critically low 9.5-13.5 [facility] Comment on above: Performed By: #### C BC ####[facility] Mzdeqtdsbp20[address] [place] [address]Dr. Garima Pulliam PLT 182 103/ul Normal 150-450 [facility] Comment on above: Performed By: #### C BC ####[facility] Keulrpimje9[address] [place] [id number]. Garima Pulliam RBC 4.74 106/ul Normal 4.70-6.10 [facility] Comment on above: Performed By: #### C BC ####[facility] Woaxljvgjh[address] [place], [place] [address]Dr. Garima Pulliam WBC 8.7 103/ul Normal 4.0-11.0 [facility] Comment on above: Performed By: #### C BC ####[facility] Mklbylxrel[address] [place], [place] [address]Dr. Garima Pulliam Covid-19 PCR (CVDTB)on 12-25 SARS-CoV-2 (COVID-19) RNA MARIE+probe Ql (Unsp spec) Not detected Normal NOT DETECTED [facility] Comment on above: Result Comment: When diagnostic [...] for this test is supported by the [place] of Health and Human Service's declaration that [...] be used). Performed By: #### C VDTBH ####[facility] Bmksexyemd24[address] [place] [address]Dr. Garima Pulliam PROF 14(COMP METB)on 023 Albumin [Mass/Vol] 3.6 g/dL Normal 3.4-5.0 [facility] Comment on above: Performed By: #### C MP, BNP, HSTROPN ####[facility] [address]jwpqurla[address] [place] [address]Dr. Garima Pulliam Albumin/Globulin [Mass ratio] 1.5 {ratio} Normal [facility] Comment on above: Performed By: #### C MP, BNP, HSTROPN ####[facility] Mbqppacqjq[address] [place] [address]Dr. Garima Pulliam ALP [Catalytic activity/Vol] 79 U/L Normal 46-116 [facility] Comment on above: Performed By: #### C MP, BNP, HSTROPN ####[facility] Offojvmoby[address] [place] [address]Dr. Garima Pulliam ALT [Catalytic activity/Vol] 27 U/L Normal 16-63 [facility] Comment on above: Performed By: #### C MP, BNP, HSTROPN ####[facility] Tvthhxrpwm68[address] [place] [address]Dr. Garima Pulliam Anion gap [Moles/Vol] 11.7 mmol/L Normal [facility] Comment on above: Performed By: #### C MP, BNP, HSTROPN ####[facility] Iowjnlbfzh[address] [place] [address]Dr. Garima Pulliam AST [Catalytic activity/Vol] 21 U/L Normal 15-37 [facility] Comment on above: Performed By: #### C MP, BNP, HSTROPN ####[facility] Nugqpbulji[address] [place] [address]Dr. Garima Pulliam Bilirubin [Mass/Vol] 0.3 mg/dL Normal 0.2-1.0 [facility] Comment on above: Performed By: #### C MP, BNP, HSTROPN ####[facility] Qxifcpuexi[address] [place] [address]Dr. Garima Pulliam Calcium [Mass/Vol] 8.9 mg/dL Normal 8.5-10.1 [facility] Comment on above: Performed By: #### C MP, BNP, HSTROPN ####[facility] Bjxkhkaagu97[address] [place] [address]Dr. Garima Pulliam Chloride [Moles/Vol] 107 mmol/L Normal 98-107 [facility] Comment on above: Performed By: #### C MP, BNP, HSTROPN ####[facility] Wxgkxrpubu9[address] [place] [address]Dr. Garima Pulliam CO2 [Moles/Vol] 26.0 mmol/L Normal 21.0-32.0 [facility] Comment on above: Performed By: #### C MP, BNP, HSTROPN ####[facility] Gvfbiqjpey[address] [place] [address]Dr. Garima Pulliam Creatinine [Mass/Vol] 0.65 mg/dL Critically low 0.70-1.30 [facility] Comment on above: Performed By: #### C MP, BNP, HSTROPN ####[facility] Kitgfhxmjx[address] [place] [address]Dr. Yilan Pulliam EGFR-AF [place] ISLANDER >60 Normal >=60 [facility] Comment on above: Performed By: #### C MP, BNP, HSTROPN ####[facility] Thz[address]ubcviq3[address] [place] [address]Dr. Garima Pulliam EGFR-NON AF [place] ISLANDER >60 Normal >=60 [facility] Comment on above: Performed By: #### C MP, BNP, HSTROPN ####[facility] Rbbcigdyoo6260 [place] [address]Dr. Garima Pulliam Globulin (S) [Mass/Vol] 2.4 g/dL Normal [facility] Comment on above: Performed By: #### C MP, BNP, HSTROPN ####[facility] Hhrhxrzcgl[address] [place], [place] [address]Dr. Garima Pulliam Glucose [Mass/Vol] 85 mg/dL Normal 74-106 [facility] Comment on above: Performed By: #### C MP, BNP, HSTROPN ####[facility] Yakqhkllpa[address] [place] [address]Dr. Garima Pulliam Potassium [Moles/Vol] 3.7 mmol/L Normal 3.5-5.1 [facility] Comment on above: Performed By: #### C MP, BNP, HSTROPN ####[facility] Whawaikxzw[address] [place] [address]Dr. Garima Pulliam Protein [Mass/Vol] 6.0 g/dL Critically low 6.4-8.2 [facility] Comment on above: Performed By: #### C MP, BNP, HSTROPN ####[facility] Xkqcqwwvvf6[address] [place] [address]Dr. Garima Pulliam Sodium [Moles/Vol] 141 mmol/L Normal 136-[address] [facility] Comment on above: Performed By: #### C MP, BNP, HSTROPN ####[facility] Asmhhoaerd90[address] [place] [address]Dr. Garima Pulliam Urea nitrogen [Mass/Vol] 5.0 mg/dL Critically low 7.0-18.0 [facility] Comment on above: Performed By: #### C MP, BNP, HSTROPN ####[facility] Hhwjderjay[address] [place] [address]Dr. Garima Pulliam Urea nitrogen/Creatinine [Mass ratio] 7.7 mg/mg Normal [facility] Comment on above: Performed By: #### C MP, BNP, HSTROPN ####[facility] Mbfpcfebvw12[address] [place] [address]Dr. Garima Pulliam PROTIMEon 01-12-2023 INR Coag (PPP) [Relative time] 1.16 {INR} Normal [facility] Comment on above: Performed By: #### P TT, PT ####[facility] Oevqfgsvmr[address] [place] [address]Dr. Garima Pulliam INR GUIDELINES SEE BELOW Normal [facility] Comment on above: Result Comment: [place] RED INR: 2.0 - 3.0 CONDITIONS NOT LISTED BELOW 2.5 - 3.5 FOR PROSTHETIC HEART VALVE REPLACEMENT 2.5 - 3.5 RECURRENT THROMBOSIS Performed By: #### P TT, PT ####[facility] Myzxrqlfwy[address] [place], [place] [address]Dr. Garima Pulliam PT Coag (PPP) [Time] 12.2 s Critically high 9.0-11.6 [facility] Comment on above: Performed By: #### P TT, PT ####[facility] Bcsivdmkye[address] [place] [address]Dr. Garima Pulliam PTTon 01-12-2023 aPTT Coag (Bld) [Time] 29.1 s Normal 22.3-36.2 [facility] Comment on above: Performed By: #### P TT, PT ####[facility] Iietmsxdqm[address] [place], [place] [address]Dr. Garima Pulliam TROPONIN, HIGH SENSITIVITYon 01-12-2023 HSTROP 10.3 pg/mL Normal 4.0-76.1 [facility] Comment on above: Result Comment: CUT- OFF POINTS HAVE BEEN ESTABLISHED BASED ON THE FOURTH UNIVERSAL DEFINITIONS OF MYOCARDIALINFARCTION. THE UPPER REFERENCE LIMIT (URL) OF TROPONIN, DEFINED THE 99TH PERCENTILE OFcTnI DISTRIBUTION IN A REFERENCE POPULATION, HAS BEEN CONFIRMED THE DECISION THRESHOLDFOR IN DIAGNOSIS. Performed By: #### H STROPN ####[facility] [address]oiwrplp[address] [place] [address]Dr. Garima Pulliam HSTROP 9.2 pg/mL Normal 4.0-76.1 [facility] Comment on above: Result Comment: CUT- OFF POINTS HAVE BEEN ESTABLISHED BASED ON THE FOURTH UNIVERSAL DEFINITIONS OF MYOCARDIALINFARCTION. THE UPPER REFERENCE LIMIT (URL) OF TROPONIN, DEFINED THE 99TH PERCENTILE OFcTnI DISTRIBUTION IN A REFERENCE POPULATION, HAS BEEN CONFIRMED THE DECISION THRESHOLDFOR IN DIAGNOSIS. Performed By: #### C MP, BNP, HSTROPN ####[facility] Memthjvhjz[address] [place] [address]Dr. Garima Pulliam XR CHEST 1 Von 01-12-2023 XR CHEST 1 V Normal [facility] XR CHEST 1 Von 01-01-2023 XR CHEST 1 V Normal [facility] CARDIAC NASH 3-6on 3 CK [Catalytic activity/Vol] 196 U/L Normal 39-308 [facility] Comment on above: Performed By: #### C MREP ####[facility] Acduzioxhn[address] [place] [address]Dr. Garima Pulliam CK.MB [Mass/Vol] 7.41 ng/mL Critically high <=3.60 [facility] Comment on above: Performed By: #### C MREP ####[facility] Rsfdkvfnwn[address] [place] [address]Dr. Garima Pulliam HSTROP 10.3 pg/mL Normal 4.0-76.1 [facility] Comment on above: Result Comment: CUT- OFF POINTS HAVE BEEN ESTABLISHED BASED ON THE FOURTH UNIVERSAL DEFINITIONS OF MYOCARDIALINFARCTION. THE UPPER REFERENCE LIMIT (URL) OF TROPONIN, DEFINED THE 99TH PERCENTILE OFcTnI DISTRIBUTION IN A REFERENCE POPULATION, HAS BEEN CONFIRMED THE DECISION THRESHOLDFOR IN DIAGNOSIS. Performed By: #### C MREP ####[facility] Yvrkdybvyy[address] [place] [id number]. Garima Pulliam XR CHEST 1 Von 12-26-2022 XR CHEST 1 V Normal [facility] BNPon 12-25-2022 Natriuretic peptide B (Bld) [Mass/Vol] 98.0 pg/mL Normal <=900.0 [facility] Comment on above: Performed By: #### B MARVIN FRENCH CMADM ####[facility] Mndfrttvjw[address] [place] [address]Dr. Garima Pulliam CARDIAC NASH ADMITon 023 CK [Catalytic activity/Vol] 208 U/L Normal 39-308 [facility] Comment on above: Performed By: #### B MARVIN FRENCH CMADM ####[facility] Heuobrbtmb10[address] [place] [address]Dr. Garima Pulliam CK.MB [Mass/Vol] 7.63 ng/mL Critically high <=3.60 [facility] Comment on above: Performed By: #### B MARVIN FRENCH CMADM ####[facility] Bztkuatmge7[address] [place], [place] [address]Dr. Garima Pulliam HSTROP 8.8 pg/mL Normal 4.0-76.1 [facility] Comment on above: Result Comment: CUT- OFF POINTS HAVE BEEN ESTABLISHED BASED ON THE FOURTH UNIVERSAL DEFINITIONS OF MYOCARDIALINFARCTION. THE UPPER REFERENCE LIMIT (URL) OF TROPONIN, DEFINED THE 99TH PERCENTILE OFcTnI DISTRIBUTION IN A REFERENCE POPULATION, HAS BEEN CONFIRMED THE DECISION THRESHOLDFOR IN DIAGNOSIS. Performed By: #### B MARVIN FRENCH CMADM ####[facility] Dfcpsrxnau29[address] [place], [place] [address]Dr. Garima Pulliam DORIS 83 ng/mL Normal 16-96 [facility] Comment on above: Performed By: #### B MARVIN FRENCH CMADM ####[facility] Xltgojnziw4620[address] [place], [place] [address]Dr. Garima Pulliam CBC AUTO DIFFon 12-25-2022 BASO # 0.0 103/ul Normal 0.0-0.1 [facility] Comment on above: Performed By: #### C BC ####[facility] Irkcauaeon67[address] [place], [place] [address]Dr. Garima Pulliam Basophils/100 WBC (Bld) 0.0 % Critically low 0.2-2.0 [facility] Comment on above: Performed By: #### C BC ####[facility] Wmvowbqgle30[address] [place] [address]Dr. Garima Pulliam EO # 0.0 103/ul Normal 0.0-0.7 [facility] Comment on above: Performed By: #### C BC ####[facility] Mvvwxoankr[address] [place], [place] [address]Dr. Garima Pulliam Eosinophils/100 WBC (Bld) 0.7 % Critically low 0.9-7.0 [facility] Comment on above: Performed By: #### C BC ####[facility] Afwudwcczr96[address] [place], [place] [address]Dr. Garima Pulliam Erythrocyte distribution width (RBC) [Ratio] 13.4 % Normal 11.0-15.0 [facility] Comment on above: Performed By: #### C BC ####[facility] Phowprzcwh826[address] [place], [place] [address]Dr. Garima Pulliam Hematocrit (Bld) [Volume fraction] 42.9 % Normal 42.0-54.0 [facility] Comment on above: Performed By: #### C BC ####[facility] Nxkyfmylid94[address] [place], [place] [address]Dr. Garima Pulliam Hemoglobin (Bld) [Mass/Vol] 14.4 g/dL Normal 14.0-18.0 [facility] Comment on above: Performed By: #### C BC ####[facility] Kiqbfuuuuv18[address] [place], [place] [address]Dr. Garima Pulliam IG # 0.00 10e3/ul Normal 0.00-0.03 [facility] Comment on above: Performed By: #### C BC ####[facility] Aotgemvrlz87[address] [place], [place] [address]Dr. Garima Pulliam IG % 0.0 % Normal 0.0-0.5 [facility] Comment on above: Performed By: #### C BC ####[facility] Hobtztzstr12[address] [place], [place] [address]Dr. Garima Pulliam LYMPH # 2.4 103/ul Normal 1.2-3.8 [facility] Comment on above: Performed By: #### C BC ####[facility] Imgsarsrwz0904 [place] [id number]. Chapisrenu Pulliam Lymphocytes/100 WBC (Bld) 29.2 % Normal 20.5-60.0 [facility] Comment on above: Performed By: #### C BC ####[facility] Oralowhdch[address]162 [place] [id number]. Garima Pulliam MANUAL DIFF REQ NO Normal [facility] Comment on above: Performed By: #### C BC ####[facility] Pawvkwwdnl3[address] [place] [id number]. Garima Pulliam MCH (RBC) [Entitic mass] 30.7 pg Normal 25.9-34.0 [facility] Comment on above: Performed By: #### C BC ####[facility] Uhivaqaljh[address] [place], [place] [address]Dr. Garima Pulliam MCHC (RBC) [Mass/Vol] 33.6 g/dL Normal 29.9-35.2 [facility] Comment on above: Performed By: #### C BC ####[facility] Qjoouknmfn4840[address] [place], [place] [address]Dr. Garima Pulliam MCV (RBC) [Entitic vol] 91.5 fL Normal 80.0-94.0 [facility] Comment on above: Performed By: #### C BC ####[facility] Heltlewfnh65[address] [place], [place] [address]Dr. Garima Pulliam MONO # 0.0 103/ul Critically low 0.3-0.8 [facility] Comment on above: Performed By: #### C BC ####[facility] [address]pxbvytvxo[address] [place] [address]Dr. Garima Pulliam Monocytes/100 WBC (Bld) 8.0 % Normal 1.7-12.0 [facility] Comment on above: Performed By: #### C BC ####[facility] Fobskxdvlg4932[address] [place], [place] [address]Dr. Garima Pulliam NEUT # 5.1 103/ul Normal 1.4-6.5 [facility] Comment on above: Performed By: #### C BC ####[facility] Zzretfqits6856 [place], [place] [address]Jh. Garima Pulliam Neutrophils/100 WBC (Bld) 62.8 % Normal 43.0-75.0 [facility] Comment on above: Performed By: #### C BC ####[facility] Qcrgmyktrm8820 [place], [place] [address]Xt. Garima Pulliam Platelet mean volume (Bld) [Entitic vol] 8.6 fL Critically low 9.5-13.5 [facility] Comment on above: Performed By: #### C BC ####[facility] [address]fe[address]zrehc[address] [place] [id number]. Garima Pulliam PLT 200 103/ul Normal 150-450 [facility] Comment on above: Performed By: #### C BC ####[facility] Aelggrclbj25[address] [place] [id number]. Garima Pulliam RBC 4.69 106/ul Critically low 4.70-6.10 [facility] Comment on above: Performed By: #### C BC ####[facility] Uddzaerfmk7959 [place], [place] [address]Vx. Garima Pulliam WBC 8.2 103/ul Normal 4.0-11.0 [facility] Comment on above: Performed By: #### C BC ####[facility] Lykocymhqj2877 [place], [place] [address]Lq. Garima Pulliam Covid-19 PCR ([facility]on SARS-CoV-2 (COVID-19) RNA MARIE+probe Ql (Unsp spec) Not detected Normal NOT DETECTED [facility] Comment on above: Result Comment: When diagnostic [...] for this test is supported by the [place] of Health and Human Service's declaration that [...] be used). Performed By: #### C VDTBH ####[facility] Sztqafzchy7[address] [place], [place] [address]Dr. Garima Pulliam INFLUENZA A AND B AGon 12-25 INFLUANEGH SEE BELOW Normal [facility] Comment on above: Result Comment: Nega tive for Flu A protein angiten. Infection due to Flu A cannot be ruled out. Flu A angiten in the sample may be below the detection limit of the test. Performed By: #### I NFLUAB ####[facility] Zyboeansfj32[address] [place], [place] [address]Dr. Garima Pulliam INFLUBNEGH SEE BELOW Normal [facility] Comment on above: Result Comment: Nega tive for Flu B protein antigen. Infection due to Flu B cannot be ruled out. Flu B antigen in the sample may be below the detection limit of the test. Performed By: #### I NFLUAB ####[facility] Yishxbrhqj[address] [place], [place] [address]Dr. Garima Pulliam INFLUENZA A AG Negative Normal NEGATIVE SEE COMMENT [facility] Comment on above: Performed By: #### I NFLUAB ####[facility] Vqyjlneqnr84232[address] [place], [place] [address]Dr. renu [facility] INFLUENZA B AG Negative Normal NEGATIVE SEE COMMENT [facility] Comment on above: Performed By: #### I NFLUAB ####[facility] Dswvktsvxs8[address] [place], [place] [address]Dr. Garima Pulliam PROF CHEM 8 (BAS METB)on Anion gap [Moles/Vol] 11.1 mmol/L Normal Th [facility] Comment on above: Performed By: #### B INK JET OPERATOR, BMP, CMADM ####[facility] Llflesavro6[address] [place], [place] [address]Dr. Garima Pulliam Calcium [Mass/Vol] 8.5 mg/dL Normal 8.5-10.[address] [facility] Comment on above: Performed By: #### B INK JET OPERATOR, MARVIN, CMADM ####[facility] Feaxrrqfem[address] [place] [phone]. Garima Pulliam Chloride [Moles/Vol] 106 mmol/L Normal 98-107 [facility] Comment on above: Performed By: #### B INK JET OPERATOR, BMP, CMADM ####[facility] Ozvaewiubr27[address] [place] [address]Dr. Garima Pulliam CO2 [Moles/Vol] 27.4 mmol/L Normal 21.0-32.0 [facility] Comment on above: Performed By: #### B INK JET OPERATOR, MARVIN, CMADM ####[facility] Pgrjlfgkvq4[address] [place] [address]Dr. Garima Pulliam Creatinine [Mass/Vol] 0.65 mg/dL Critically low 0.70-1.30 [facility] Comment on above: Performed By: #### B INK JET OPERATOR, MARVIN, CMADM ####[facility] [address]abzbnvl26[address] [place] [address]Dr. Garima Pulliam EGFR-AF [place]LANDER >60 Normal >=60 [facility] [place] Comment on above: Performed By: #### B INK JET OPERATOR, BMP, CMADM ####[facility] Ojquziikiy[address] [place] [address]Dr. Garima Pulliam EGFR-NON AF [place]LANDER >60 Normal >=60 [facility] Comment on above: Performed By: #### B INK JET OPERATOR, BMP, CMADM ####[facility] Fiiiklusxl9372 [place] [address]Dr. Garima Pulliam Glucose [Mass/Vol] 140 mg/dL Critically high 74-106 [facility] Comment on above: Performed By: #### B INK JET OPERATOR, BMP, CMADM ####[facility] Hstwzriojl5[address] [place] [address]Dr. Garima Pulliam Potassium [Moles/Vol] 3.5 mmol/L Normal 3.5-5.1 [facility] Comment on above: Performed By: #### B INK JET OPERATOR, BMP, CMADM ####[facility] Jbupcqiytv9[address] [place] [address]Dr. Garima Pulliam Sodium [Moles/Vol] 141 mmol/L Normal 136-145 [facility] Comment on above: Performed By: #### B INK JET OPERATOR, BMP, CMADM ####[facility] Sgtglwduzw7178 [place] [address]Dr. Garima Pulliam Urea nitrogen [Mass/Vol] 8.0 mg/dL Normal 7.0-18.0 [facility] Comment on above: Performed By: #### B INK JET OPERATOR, BMP, CMADM ####[facility] Jjonloaspi0795 [place] [address]Dr. Garima Pulliam Urea nitrogen/Creatinine [Mass ratio] 12.3 mg/mg Normal [facility] Comment on above: Performed By: #### B INK JET OPERATOR, BMP, CMADM ####[facility] Anexvcstqg0169[address] [place], [place] [address]Dr. Garima Pulliam CARDIAC NASH ADMITon 023 CK [Catalytic activity/Vol] 165 U/L Normal 39-308 [facility] Comment on above: Performed By: #### B DAVID, CMADM ####[facility] Mbjreotzzt6107[address] [place], [place] [address]Dr. Garima Pulliam CK.MB [Mass/Vol] 6.48 ng/mL Critically high <=3.60 [facility] Comment on above: Performed By: #### B MP, CMADM ####[facility] Xhjawmjqpo8[address] [place], [place] [address]Dr. Garima Pulliam HSTROP 11.7 pg/mL Normal 4.0-76.1 [facility] Comment on above: Result Comment: CUT- OFF POINTS HAVE BEEN ESTABLISHED BASED ON THE FOURTH UNIVERSAL DEFINITIONS OF MYOCARDIALINFARCTION. THE UPPER REFERENCE LIMIT (URL) OF TROPONIN, DEFINED THE 99TH PERCENTILE OFcTnI DISTRIBUTION IN A REFERENCE POPULATION, HAS BEEN CONFIRMED THE DECISION THRESHOLDFOR IN DIAGNOSIS. Performed By: #### B MP, CMADM ####[facility] Voymiywjnr8418[address] [place], [place] [address]Dr. Garima Pulliam DORIS 83 ng/mL Normal 16-96 [facility] Comment on above: Performed By: #### B MP, CMADM ####[facility] Vzjvoaxnmn90[address] [place] [address]Dr. Garima Pulliam CBC AUTO DIFFon 12-10-2022 BASO # 0.0 103/ul Normal 0.0-0.1 [facility] Comment on above: Performed By: #### C BC ####[facility] Axkunkiusa0130[address] [place], [place] [address]Dr. Garima Heraclio Basophils/100 WBC (Bld) 0.3 % Normal 0.2-2.0 [facility] Comment on above: Performed By: #### C BC ####[facility] Glhfxhidzs26[address] [place], [place] [address]Dr. Garima Pulliam EO # 0.1 103/ul Normal 0.0-0.7 [facility] Comment on above: Performed By: #### C BC ####[facility] Oxfbzhimpj6130[address] [place], [place] [address]Dr. Garima Pulliam Eosinophils/100 WBC (Bld) 0.4 % Critically low 0.9-7.0 [facility] Comment on above: Performed By: #### C BC ####[facility] Xlsdjxufot440[address] [place], [place] [address]Dr. Garima Pulliam Erythrocyte distribution width (RBC) [Ratio] 13.2 % Normal 11.0-15.0 [facility] Comment on above: Performed By: #### C BC ####[facility] Bebgbtdhhj7766[address] [place], [place] [address]Dr. Garima Pulliam Hematocrit (Bld) [Volume fraction] 42.4 % Normal 42.0-54.0 [facility] Comment on above: Performed By: #### C BC ####[facility] Rconsqxfxl206[address] [place], [place] [address]Dr. Garima Pulliam Hemoglobin (Bld) [Mass/Vol] 14.4 g/dL Normal 14.0-18.0 [facility] Comment on above: Performed By: #### C BC ####[facility] Tlwwktnsrj[address] [place] [id number]. Garima Heraclio IG # 0.05 10e3/ul Critically high 0.00-0.03 [facility] Comment on above: Performed By: #### C BC ####[facility] Zfxkqiqjmb80[address] [place] [address]Dr. Garima Heraclio IG % 0.4 % Normal 0.0-0.5 [facility] Comment on above: Performed By: #### C BC ####[facility] Uvhaqsiuqy[address] [place], [place] [address]Dr. Garima Pulliam LYMPH # 0.8 103/ul Critically low 1.2-3.8 [facility] Comment on above: Performed By: #### C BC ####[facility] Diuvruosyn8646[address] [place], [place] [address]Dr. Chapisrenu Pulliam Lymphocytes/100 WBC (Bld) 6.5 % Critically low 20.5-60.0 [facility] Comment on above: Performed By: #### C BC ####[facility] Jyoklurgtd14[address] [place], [place] [address]Dr. Chapisrenu Pulliam MANUAL DIFF REQ NO Normal [facility] Comment on above: Performed By: #### C BC ####[facility] Dfarmsxmbg20[address] [place], [place] [address]DrAdalberto Garima Pulliam MCH (RBC) [Entitic mass] 30.5 pg Normal 25.9-34.0 [facility] Comment on above: Performed By: #### C BC ####[facility] Sazdjfgpit7219[address] [place], [place] [address]DrAdalberto Garima Heraclio MCHC (RBC) [Mass/Vol] 34.0 g/dL Normal 29.9-35.2 [facility] Comment on above: Performed By: #### C BC ####[facility] Sdprsfygud[address] [place], [place] [address]DrAdablerto Garima Heraclio MCV (RBC) [Entitic vol] 89.8 fL Normal 80.0-94.0 [facility] Comment on above: Performed By: #### C BC ####[facility] Zpgkphagjz6[address] [place], [place] [address]Dr. Garima Pulliam MONO # 0.2 103/ul Critically low 0.3-0.8 [facility] Comment on above: Performed By: #### C BC ####[facility] Azpqvbrvpl55[address] [place] [id number]. Garima Pulliam Monocytes/100 WBC (Bld) 2.0 % Normal 1.7-12.0 [facility] Comment on above: Performed By: #### C BC ####[facility] Xrelmaaurl44[address] [place] [address]Dr. Chapisrenu Heraclio NEUT # 10.5 103/ul Critically high 1.4-6.5 [facility] Comment on above: Performed By: #### C BC ####[facility] Ewwtkpwzbe8492 [place] [address]Dr. Garima Pulliam Neutrophils/100 WBC (Bld) 90.4 % Critically high 43.0-75.0 [facility] Comment on above: Performed By: #### C BC ####[facility] Dghlbkbcgs9543 [place] [address]Dr. Garima Pulliam Platelet mean volume (Bld) [Entitic vol] 9.4 fL Critically low 9.5-13.5 [facility] Comment on above: Performed By: #### C BC ####[facility] Tevghctlsn[address] [place] [address]Dr. Garima Pulliam PLT 198 103/ul Normal 150-450 [facility] Comment on above: Performed By: #### C BC ####[facility] Mtifxapnnk05[address] [place] [address]Dr. Garima Pulliam RBC 4.72 106/ul Normal 4.70-6.10 [facility] Comment on above: Performed By: #### C BC ####[facility] Wbewbljeao6527 [place] [id number]. Garima Pulliam WBC 11.6 103/ul Critically high 4.0-11.0 [facility] Comment on above: Performed By: #### C BC ####[facility] Tfqqjtbsvk8062 [place] [address]DrAdalberto Pulliam PROF CHEM 8 (BAS METB)on Anion gap [Moles/Vol] 11.3 mmol/L Normal Th [facility] Comment on above: Performed By: #### B NANCY HERNANDEZ ####[facility] Bxwvoanzfd98[address] [place] [address]Dr. Garima Pulliam Calcium [Mass/Vol] 8.9 mg/dL Normal 8.5-10.1 [facility] Comment on above: Performed By: #### B NANCY HERNANDEZ ####[facility] Rjqsrcqsah7109 [place] [address]Dr. Garima Pulliam Chloride [Moles/Vol] 103 mmol/L Normal 98-107 [facility] Comment on above: Performed By: #### B NANCY HERNANDEZ ####[facility] Iwxjksyclc[address] [place], [place] [address]Dr. Garima Pulliam CO2 [Moles/Vol] 28.2 mmol/L Normal 21.0-32.0 [facility] [place] Comment on above: Performed By: #### NANCY Larkin MP ####[facility] Mjomthhezj[address] [place] [address]Dr. Chapisrenu Pulliam Creatinine [Mass/Vol] 0.60 mg/dL Critically low 0.70-1.30 [facility] Comment on above: Performed By: #### NANCY Larkin MP ####[facility] Divlizdoma23[address] [place] [address]Dr. Garima Pulliam EGFR-AF [place]LANDER >60 Normal >=60 [facility] [place] Comment on above: Performed By: #### NANCY Larkin MP ####[facility] Bloxqsnjko4208 [place] [address]Dr. Garima Pulliam EGFR-NON AF [place]LANDER >60 Normal >=60 [facility] Comment on above: Performed By: #### NANCY Larkin MP ####[facility] Nxspcpkaht575[address] [place], [place] [address]Dr. Garima Pulliam Glucose [Mass/Vol] 166 mg/dL Critically high 74-106 [facility] Comment on above: Performed By: #### B MP, CMADM ####[facility] Wjozepolts98[address] [place] [address]Dr. Garima Pulliam Potassium [Moles/Vol] 3.5 mmol/L Normal 3.5-5.1 [facility] Comment on above: Performed By: #### B MP, CMADM ####[facility] Rwlwnfgajg88[address] [place] [address]Dr. Garima Pulliam Sodium [Moles/Vol] 139 mmol/L Normal 136-[address] [facility] Comment on above: Performed By: #### B DAVID, CMADM ####[facility] Kzkowovvdu93[address] [place] [address]Dr. Garima Heraclio Urea nitrogen [Mass/Vol] 9.0 mg/dL Normal 7.0-18.0 [facility] Comment on above: Performed By: #### B DAVID, NANCY ####[facility] Yihrfsgreu750[address] [place], [place] [address]Dr. Garima Heraclio Urea nitrogen/Creatinine [Mass ratio] 15.0 mg/mg Normal [facility] Comment on above: Performed By: #### B DAVID, CMAANA ROSA ####[facility] Ypimwlginh64[address] [place], [place] [address]Dr. Garima Pulliam XR CHEST 1 Von 12-10-2022 XR CHEST 1 V Normal [facility] BNPon 11-27-2022 Natriuretic peptide B (Bld) [Mass/Vol] 95.0 pg/mL Normal <=900.0 [facility] Comment on above: Performed By: #### C MP, HSTROPN, BNP ####[facility] Lyosfpvgae6874[address] [place], [place] [address]Dr. Garima Heraclio CBC AUTO DIFFon 11-27-2022 BASO # 0.0 103/ul Normal 0.0-0.1 [facility] Comment on above: Performed By: #### C BC ####[facility] Vjwhtelzgi5985[address] [place], [place] [address]Dr. Garima Heraclio Basophils/100 WBC (Bld) 0.2 % Normal 0.2-2.0 [facility] Comment on above: Performed By: #### C BC ####[facility] Sodftrimbi[address] [place] [id number]. Garima Pulliam EO # 0.2 103/ul Normal 0.0-0.7 [facility] Comment on above: Performed By: #### C BC ####[facility] Ppxjqnochm1794 [place] [id number]. Garima Pulliam Eosinophils/100 WBC (Bld) 2.0 % Normal 0.9-7.0 [facility] Comment on above: Performed By: #### C BC ####[facility] Rzfnwpqrsr5686[address] [place], [place] [address]Dr. Garima Pulliam Erythrocyte distribution width (RBC) [Ratio] 13.2 % Normal 11.0-15.0 [facility] Comment on above: Performed By: #### C BC ####[facility] Kpkciuwjye5824[address] [place], [place] [address]Dr. Garima Pulliam Hematocrit (Bld) [Volume fraction] 42.4 % Normal 42.0-54.0 [facility] Comment on above: Performed By: #### C BC ####[facility] Irfmullmlo7015[address] [place], [place] [address]Dr. Garima Pulliam Hemoglobin (Bld) [Mass/Vol] 14.4 g/dL Normal 14.0-18.0 [facility] Comment on above: Performed By: #### C BC ####[facility] Ptpqgxkenx127[address] [place], [place] [address]Dr. Garima Pulliam IG # 0.04 10e3/ul Critically high 0.00-0.03 [facility] Comment on above: Performed By: #### C BC ####[facility] Ibbgyhsbgi16[address] [place], [place] [address]Dr. Garima Pulliam IG % 0.4 % Normal 0.0-0.5 [facility] Comment on above: Performed By: #### C BC ####[facility] Rajnigyndb574[address] [place], [place] [address]Dr. Garima Pulliam LYMPH # 2.2 103/ul Normal 1.2-3.8 [facility] Comment on above: Performed By: #### C BC ####[facility] Eqklrstamj4781 [place] [id number]. Garima Pulliam Lymphocytes/100 WBC (Bld) 21.5 % Normal 20.5-60.0 [facility] Comment on above: Performed By: #### C BC ####[facility] Yoxkbdlxip4665 [place] [phone]. Garima Heraclio MANUAL DIFF REQ NO Normal [facility] Comment on above: Performed By: #### C BC ####[facility] Lakduruqov7[address] [place] [phone]. Garima Heraclio MCH (RBC) [Entitic mass] 30.4 pg Normal 25.9-34.0 [facility] Comment on above: Performed By: #### C BC ####[facility] Niehpmuelu49[address] [place] [address]Dr. Garima Heraclio MCHC (RBC) [Mass/Vol] 34.0 g/dL Normal 29.9-35.2 [facility] Comment on above: Performed By: #### C BC ####[facility] Nbuudqjssd8953 [place] [phone]. Garima Pulliam MCV (RBC) [Entitic vol] 89.6 fL Normal 80.0-94.0 [facility] Comment on above: Performed By: #### C BC ####[facility] Wbxijnntgb8371 [place] [phone]. Garima Pulliam MONO # 0.8 103/ul Normal 0.3-0.8 [facility] Comment on above: Performed By: #### C BC ####[facility] Exrycwdvkp6672 [place] [phone]. Chapisrenu Pulliam Monocytes/100 WBC (Bld) 7.7 % Normal 1.7-12.0 [facility] Comment on above: Performed By: #### C BC ####[facility] Ppanyayeub[address] [place], [place] [address]Dr. Garima Pulliam NEUT # 7.0 103/ul Critically high 1.4-6.5 [facility] Comment on above: Performed By: #### C BC ####[facility] Xfjunjguao2293 [place] [phone]. Garima Pulliam Neutrophils/100 WBC (Bld) 68.2 % Normal 43.0-75.0 [facility] Comment on above: Performed By: #### C BC ####[facility] Scoprnnqwt1313 [place] [phone]. Chapisrenu Pulliam Platelet mean volume (Bld) [Entitic vol] 8.9 fL Critically low 9.5-13.5 [facility] Comment on above: Performed By: #### C BC ####[facility] Ovcioyweyg[address] [place] [address]Dr. Garima Pulliam PLT 222 103/ul Normal 150-450 [facility] Comment on above: Performed By: #### C BC ####[facility] Kbrhgolagj32[address] [place] [address]Dr. Garima Pulliam RBC 4.73 106/ul Normal 4.70-6.10 [facility] Comment on above: Performed By: #### C BC ####[facility] Ujeifibbtk[address] [place] [address]Dr. Garima Pulliam WBC 10.3 103/ul Normal 4.0-11.0 [facility] Comment on above: Performed By: #### C BC ####[facility] Znhubovocc1885 [place] [address]Dr. Garima Pulliam PROF 14(COMP METB)on 023 Albumin [Mass/Vol] 3.7 g/dL Normal 3.4-5.0 [facility] Comment on above: Performed By: #### C MP, HSTROPN, BNP ####[facility] Jgtqqajuvs0183 [place] [address]Dr. Chapisrenu Pulliam Albumin/Globulin [Mass ratio] 1.5 {ratio} Normal [facility] Comment on above: Performed By: #### C MP, HSTROPN, BNP ####[facility] Yhmjnusgtf4518 [place] [address]Dr. Garima Pulliam ALP [Catalytic activity/Vol] 79 U/L Normal 46-116 [facility] Comment on above: Performed By: #### C MP, HSTROPN, BNP ####[facility] Redvkrjxok4[address] [place] [address]Dr. Garima Pulliam ALT [Catalytic activity/Vol] 32 U/L Normal 16-63 [facility] Comment on above: Performed By: #### C MP, HSTROPN, BNP ####[facility] Wqvqqidusn8279 [place] [address]Dr. Garima Pulliam Anion gap [Moles/Vol] 9.5 mmol/L Normal [facility] Comment on above: Performed By: #### C MP, HSTROPN, BNP ####[facility] Yjlutdefpw[address] [place], [place] [address]Dr. Garima Pulliam AST [Catalytic activity/Vol] 25 U/L Normal 15-37 [facility] Comment on above: Performed By: #### C MP, HSTROPN, BNP ####[facility] Jqnliwyrpp3[address] [place], [place] [address]Dr. Chapislan Pulliam Bilirubin [Mass/Vol] 0.4 mg/dL Normal 0.2-1.0 [facility] Comment on above: Performed By: #### C MP, HSTROPN, BNP ####[facility] Jphpyldnfs[address] [place], [place] [address]Dr. Garima Pulliam Calcium [Mass/Vol] 8.9 mg/dL Normal 8.5-10.1 [facility] Comment on above: Performed By: #### C MP, HSTROPN, BNP ####[facility] Medzmrjutq89[address] [place], [place] [address]Dr. Chapislan Pulliam Chloride [Moles/Vol] 103 mmol/L Normal 98-107 [facility] Comment on above: Performed By: #### C MP, HSTROPN, BNP ####[facility] Pstjhteyag25[address] [place], [place] [address]Dr. Yilan Pulliam CO2 [Moles/Vol] 28.6 mmol/L Normal 21.0-32.0 [facility] Comment on above: Performed By: #### C MP, HSTROPN, BNP ####[facility] Ryrjfzlsob[address] [place] [address]Dr. Gairma Pulliam Creatinine [Mass/Vol] 0.72 mg/dL Normal 0.70-1.30 [facility] Comment on above: Performed By: #### C MP, HSTROPN, BNP ####[facility] Tswsemzvna[address] [place] [address]Dr. Garima Pulliam EGFR-AF [place]LANDER >60 Normal >=60 [facility] [place] Comment on above: Performed By: #### C MP, HSTROPN, BNP ####[facility] [address] [place] [address]Dr. Garima Pulliam EGFR-NON AF [place] ISLANDER >60 Normal >=60 [facility] Comment on above: Performed By: #### C MP, HSTROPN, BNP ####[facility] Y[address]fmlgwig[address] [place] [address]Dr. Garima Pulliam Globulin (S) [Mass/Vol] 2.5 g/dL Normal [facility] Comment on above: Performed By: #### C MP, HSTROPN, BNP ####[facility] Icbcbottix[address] [place], [place] [address]Dr. Garima Pulliam Glucose [Mass/Vol] 114 mg/dL Critically high 74-106 T [facility] Comment on above: Performed By: #### C MP, HSTROPN, BNP ####[facility] Athoyuawmg[address] [place], [place] [address]Dr. Garima Pulliam Potassium [Moles/Vol] 4.1 mmol/L Normal 3.5-5.1 [facility] Comment on above: Performed By: #### C MP, HSTROPN, BNP ####[facility] Lilrndekbg03[address] [place], [place] [address]Dr. Garima Pulliam Protein [Mass/Vol] 6.2 g/dL Critically low 6.4-8.2 Th [facility] Comment on above: Performed By: #### C MP, HSTROPN, BNP ####[facility] Dmezimnnwm[address] [place], [place] [address]Dr. Yilan Pulliam Sodium [Moles/Vol] 137 mmol/L Normal 136-[address] [facility] Comment on above: Performed By: #### C MP, HSTROPN, BNP ####[facility] R[address]ijmiynz[address] [place] [address]Dr. Garima Pulliam Urea nitrogen [Mass/Vol] 13.0 mg/dL Normal 7.0-18.0 [facility] Comment on above: Performed By: #### C MP, HSTROPN, BNP ####[facility] [address]dtghua[address] [place] [address]Dr. Garima Pulliam Urea nitrogen/Creatinine [Mass ratio] 18.1 mg/mg Normal [facility] Comment on above: Performed By: #### C MP, HSTROPN, BNP ####[facility] Gkmktsmjeu8[address] [place], [place] [address]Dr. Garima Pulliam TROPONIN, HIGH SENSITIVITYon 11-27-2022 HSTROP 11.8 pg/mL Normal 4.0-76.1 [facility] Comment on above: Result Comment: CUT- OFF POINTS HAVE BEEN ESTABLISHED BASED ON THE FOURTH UNIVERSAL DEFINITIONS OF MYOCARDIALINFARCTION. THE UPPER REFERENCE LIMIT (URL) OF TROPONIN, DEFINED THE 99TH PERCENTILE OFcTnI DISTRIBUTION IN A REFERENCE POPULATION, HAS BEEN CONFIRMED THE DECISION THRESHOLDFOR IN DIAGNOSIS. Performed By: #### C MP, HSTROPN, BNP ####[facility] Citqhuarhx[address] [place], [place] [address]Dr. Garima Pulliam XR CHEST 1 Von 11-27-2022 XR CHEST 1 V Normal [facility] BNPon 11-20-2022 Natriuretic peptide B (Bld) [Mass/Vol] 73.0 pg/mL Normal <=900.0 [facility] Comment on above: Performed By: #### B MP, HSTROPN, BNP ####[facility] Gxhvwxnrdt32[address] [place], [place] [address]Dr. Garima Pulliam CBC AUTO DIFFon 11-20-2022 BASO # 0.0 103/ul Normal 0.0-0.1 [facility] Comment on above: Performed By: #### C BC ####[facility] [address] [place] [id number]. Garima Pulliam Basophils/100 WBC (Bld) 0.3 % Normal 0.2-2.0 [facility] Comment on above: Performed By: #### C BC ####[facility] [address] [place] [id number]. Garima Pulliam EO # 0.2 103/ul Normal 0.0-0.7 [facility] Comment on above: Performed By: #### C BC ####[facility] [address]tlwly[address] [place] [address]Dr. Garima Pulliam Eosinophils/100 WBC (Bld) 2.1 % Normal 0.9-7.0 [facility] Comment on above: Performed By: #### C BC ####[facility] Zfbwbqtakr82[address] [place], [place] [address]Dr. Garima Pulliam Erythrocyte distribution width (RBC) [Ratio] 13.2 % Normal 11.0-15.0 [facility] Comment on above: Performed By: #### C BC ####[facility] Fzyglpnqlu[address] [place], [place] [address]Dr. Garima Pulliam Hematocrit (Bld) [Volume fraction] 43.4 % Normal 42.0-54.0 [facility] Comment on above: Performed By: #### C BC ####[facility] Ugvjlwcwoo[address] [place], [place] [address]Dr. Garima Pulliam Hemoglobin (Bld) [Mass/Vol] 14.6 g/dL Normal 14.0-18.0 [facility] Comment on above: Performed By: #### C BC ####[facility] [address] [place] [id number]. Garima Pulliam IG # 0.02 10e3/ul Normal 0.00-0.03 [facility] Comment on above: Performed By: #### C BC ####[facility] [address]obdw[address] [place] [address]Dr. Garima Pulliam IG % 0.2 % Normal 0.0-0.5 [facility] Comment on above: Performed By: #### C BC ####[facility] [address] [place] [id number]. Garima Heraclio LYMPH # 2.1 103/ul Normal 1.2-3.8 [facility] Comment on above: Performed By: #### C BC ####[facility] [address] [place] [id number]. Garima Heraclio Lymphocytes/100 WBC (Bld) 19.2 % Critically low 20.5-60.0 [facility] Comment on above: Performed By: #### C BC ####[facility] [address] [place] [id number]. Chapisrenu Pulliam MANUAL DIFF REQ NO Normal [facility] Comment on above: Performed By: #### C BC ####[facility] [address]ud[address]htyg[address] [place] [phone]. Garima Heraclio MCH (RBC) [Entitic mass] 30.4 pg Normal 25.9-34.0 [facility] Comment on above: Performed By: #### C BC ####[facility] [address] [place] [address]Dr. Garima Pulliam MCHC (RBC) [Mass/Vol] 33.6 g/dL Normal 29.9-35.2 [facility] Comment on above: Performed By: #### C BC ####[facility] Snowltr[address] [place] [id number]. Garima Heraclio MCV (RBC) [Entitic vol] 90.4 fL Normal 80.0-94.0 [facility] Comment on above: Performed By: #### C BC ####[facility] [address]fjfm[address] [place] [id number]. Garima Heraclio MONO # 0.6 103/ul Normal 0.3-0.8 [facility] Comment on above: Performed By: #### C BC ####[facility] [address]rluk[address] [place] [address]Dr. Garima Heraclio Monocytes/100 WBC (Bld) 5.8 % Normal 1.7-12.0 [facility] Comment on above: Performed By: #### C BC ####[facility] V[address] [place], [place] [address]Rt. Garima Pulliam NEUT # 7.8 103/ul Critically high 1.4-6.5 [facility] Comment on above: Performed By: #### C BC ####[facility] [address]ytgw[address] [place] [id number]. Garima Pulliam Neutrophils/100 WBC (Bld) 72.4 % Normal 43.0-75.0 [facility] Comment on above: Performed By: #### C BC ####[facility] Wn[address]xykfbb45[address] [place] [phone]. Garima Pulliam Platelet mean volume (Bld) [Entitic vol] 8.7 fL Critically low 9.5-13.5 [facility] Comment on above: Performed By: #### C BC ####[facility] [address]ff[address]zv[address] [place] [id number]. Garima Pulliam PLT 184 103/ul Normal 150-450 [facility] Comment on above: Performed By: #### C BC ####[facility] P[address]ofdavker[address] [place], [place] [address]Vj. Garima Pulliam RBC 4.80 106/ul Normal 4.70-6.10 [facility] Comment on above: Performed By: #### C BC ####[facility] Igq[address]zogj[address] [place] [id number]. Garima Pulliam WBC 10.8 103/ul Normal 4.0-11.0 [facility] Comment on above: Performed By: #### C BC ####[facility] T[address]zjd[address] [place] [phone]. Garima Pulliam Cov[facility]on [facility]-24 SARS-CoV-2 (COVID-19) RNA MARIE+probe Ql (Unsp spec) Not detected Normal NOT DETECTED [facility] Comment on above: Result Comment: When diagnostic [...] for this test is supported by the [place] of Health and Human Service's declaration that [...] be used). Performed By: #### C VDTBH ####[facility] Obcqppavsq[address] [place], [place] [address]Dr. Garima Pulliam INFLUENZA A AND B AGon 11-20 [facility] SEE BELOW Normal [facility] Comment on above: Result Comment: Nega tive for Flu A protein angiten. Infection due to Flu A cannot be ruled out. Flu A angiten in the sample may be below the detection limit of the test. Performed By: #### I NFLUAB ####[facility] Hgwnrhaehn[address] [place], [place] [address]Dr. Garima Pulliam INFLUBNEGH SEE BELOW Normal [facility] Comment on above: Result Comment: Nega tive for Flu B protein antigen. Infection due to Flu B cannot be ruled out. Flu B antigen in the sample may be below the detection limit of the test. Performed By: #### I NFLUAB ####[facility] Ropiceoplx12[address] [place], [place] [address]Dr. Garima Pulliam INFLUENZA A AG Negative Normal NEGATIVE SEE COMMENT [facility] Comment on above: Performed By: #### I NFLUAB ####[facility] Mkzaqqyvxw76[address] [place], [place] [address]Dr. Garima [facility] INFLUENZA B AG Negative Normal NEGATIVE SEE COMMENT [facility] Comment on above: Performed By: #### I NFLUAB ####[facility] Zwdzhrgmdz[address] [place], [place] [address]Dr. Garima Pulliam PROF CHEM 8 (BAS METB)on Anion gap [Moles/Vol] 8.2 mmol/L Normal [facility] Comment on above: Performed By: #### B MP, HSTROPN, BNP ####[facility] [address]eb[address] [place] [address]Dr. Garima Pulliam Calcium [Mass/Vol] 8.7 mg/dL Normal 8.5-10.1 [facility] Comment on above: Performed By: #### B MP, HSTROPN, BNP ####[facility] Nvf[address]ugwmp38[address] [place] [address]Dr. Garima Pulliam Chloride [Moles/Vol] 103 mmol/L Normal 98-107 [facility] Comment on above: Performed By: #### B MP, HSTROPN, BNP ####[facility] Scartlvwhn[address] [place], [place] [address]Dr. Garima Pulliam CO2 [Moles/Vol] 29.4 mmol/L Normal 21.0-32.0 [facility] Comment on above: Performed By: #### B MP, HSTROPN, BNP ####[facility] Cvnfssokbl[address] [place], [place] [address]Dr. Garima Pulliam Creatinine [Mass/Vol] 0.69 mg/dL Critically low 0.70-1.30 [facility] Comment on above: Performed By: #### B MP, HSTROPN, BNP ####[facility] [address]qespealxt[address] [place] [address]Dr. Garima Pulliam EGFR-AF [place]ER >60 Normal >=60 [facility] Comment on above: Performed By: #### B MP, HSTROPN, BNP ####[facility] Fndkrciptw[address] [place], [place] [address]Dr. Garima Pulliam EGFR-NON AF [place] >60 Normal >=60 [facility] Comment on above: Performed By: #### B MP, HSTROPN, BNP ####[facility] [address]pwc[address] [place] [address]Dr. Garima Pulliam Glucose [Mass/Vol] 209 mg/dL Critically high 74-106 T [facility] Comment on above: Performed By: #### B MP, HSTROPN, BNP ####[facility] [address]uz[address]ut[address] [place] [address]Dr. Garima Pulliam Potassium [Moles/Vol] 3.6 mmol/L Normal 3.5-5.1 [facility] Comment on above: Performed By: #### B MP, HSTROPN, BNP ####[facility] [address]trx[address] [place] [address]Dr. Garima Pulliam Sodium [Moles/Vol] 137 mmol/L Normal 136-[address] [facility] Comment on above: Performed By: #### B MP, HSTROPN, BNP ####[facility] Izrbaasdyx39[address] [place] [address]Dr. Garima Pulliam Urea nitrogen [Mass/Vol] 11.0 mg/dL Normal 7.0-18.0 [facility] Comment on above: Performed By: #### B MP, HSTROPN, BNP ####[facility] [address]urwzmfx[address] [place] [address]Dr. Garima Pulliam Urea nitrogen/Creatinine [Mass ratio] 15.9 mg/mg Normal [facility] Comment on above: Performed By: #### B MP, HSTROPN, BNP ####[facility] [address]dp[address] [place] [address]Dr. Garima Pulliam TROPONIN, HIGH SENSITIVITYon 11-20-2022 HSTROP 8.7 pg/mL Normal 4.0-76.1 [facility] Comment on above: Result Comment: CUT- OFF POINTS HAVE BEEN ESTABLISHED BASED ON THE FOURTH UNIVERSAL DEFINITIONS OF MYOCARDIALINFARCTION. THE UPPER REFERENCE LIMIT (URL) OF TROPONIN, DEFINED THE 99TH PERCENTILE OFcTnI DISTRIBUTION IN A REFERENCE POPULATION, HAS BEEN CONFIRMED THE DECISION THRESHOLDFOR IN DIAGNOSIS. Performed By: #### B MP, HSTROPN, BNP ####[facility] [address] [place] [address]Dr. Garima Pulliam XR CHEST 1 Von 11-20-2022 XR CHEST 1 V Normal [facility] XR CHEST 1 Von 10-02-2022 XR CHEST 1 V Normal [facility] BNPon 09-29-2022 Natriuretic peptide B (Bld) [Mass/Vol] 107.0 pg/mL Normal <=900.0 [facility] Comment on above: Performed By: #### C MP, BNP, CMADM ####[facility] [address] [place] [address]Dr. Garima Pulliam CARDIAC NASH ADMITon 022 CK [Catalytic activity/Vol] 190 U/L Normal 39-308 [facility] Comment on above: Performed By: #### C MP, BNP, CMADM ####[facility] [address]kgdwrtnm[address] [place] [address]Dr. Garima Heraclio CK.MB [Mass/Vol] 11.11 ng/mL Critically high <=3.60 Th [facility] Comment on above: Performed By: #### C MP, BNP, CMADM ####[facility] Z[address]tmvjmg[address] [place] [address]Dr. Garima Pulliam HSTROP 11.8 pg/mL Normal 4.0-76.1 [facility] Comment on above: Result Comment: CUT- OFF POINTS HAVE BEEN ESTABLISHED BASED ON THE FOURTH UNIVERSAL DEFINITIONS OF MYOCARDIALINFARCTION. THE UPPER REFERENCE LIMIT (URL) OF TROPONIN, DEFINED THE 99TH PERCENTILE OFcTnI DISTRIBUTION IN A REFERENCE POPULATION, HAS BEEN CONFIRMED THE DECISION THRESHOLDFOR IN DIAGNOSIS. Performed By: #### C MP, BNP, CMADM ####[facility] Rxqifokvlm[address] [place] [address]Dr. Garima Pulliam DORIS 133 ng/mL Critically high 16-96 [facility] Comment on above: Performed By: #### C MP, BNP, CMADM ####[facility] X[address]hxucx[address] [place] [address]Dr. Garima Heraclio CBC AUTO DIFFon 09-29-2022 BASO # 0.0 103/ul Normal 0.0-0.1 [facility] Comment on above: Performed By: #### C BC ####[facility] Hmcbtxfvkw[address] [place] [address]Dr. Garima Heraclio Basophils/100 WBC (Bld) 0.2 % Normal 0.2-2.0 [facility] Comment on above: Performed By: #### C BC ####[facility] V[address]izzahs[address] [place] [id number]. Garima Pulliam EO # 0.1 103/ul Normal 0.0-0.7 [facility] Comment on above: Performed By: #### C BC ####[facility] Bxiehbrieq[address] [place] [id number]. Garima Pulliam Eosinophils/100 WBC (Bld) 1.4 % Normal 0.9-7.0 [facility] Comment on above: Performed By: #### C BC ####[facility] Dootmrfueo[address] [place], [place] [address]Dr. Garima Pulliam Erythrocyte distribution width (RBC) [Ratio] 13.7 % Normal 11.0-15.0 [facility] Comment on above: Performed By: #### C BC ####[facility] Rpjyfbcyws[address] [place], [place] [address]Dr. Garima Pulliam Hematocrit (Bld) [Volume fraction] 45.4 % Normal 42.0-54.0 [facility] Comment on above: Performed By: #### C BC ####[facility] Iwxxgwswrd[address] [place], [place] [address]Dr. Garima Pulliam Hemoglobin (Bld) [Mass/Vol] 14.8 g/dL Normal 14.0-18.0 [facility] Comment on above: Performed By: #### C BC ####[facility] Sjzimymbkc[address] [place], [place] [address]Dr. Garima Pulliam IG # 0.04 10e3/ul Critically high 0.00-0.03 [facility] Comment on above: Performed By: #### C BC ####[facility] Ejmnnofgek[address] [place], [place] [address]Dr. Garima Pulliam IG % 0.5 % Normal 0.0-0.5 [facility] Comment on above: Performed By: #### C BC ####[facility] Prxphrpqsg[address] [place], [place] [address]Dr. Garima Pulliam LYMPH # 1.1 103/ul Critically low 1.2-3.8 [facility] Comment on above: Performed By: #### C BC ####[facility] Wmrkhimeky[address] [place] [id number]. Garima Pulliam Lymphocytes/100 WBC (Bld) 12.7 % Critically low 20.5-60.0 [facility] Comment on above: Performed By: #### C BC ####[facility] Ngfzmlrlqp35[address] [place] [id number]. Chapisrenu Pulliam MANUAL DIFF REQ NO Normal [facility] Comment on above: Performed By: #### C BC ####[facility] [address]rwedwnrw[address] [place], [place] [address]Dr. Garima Heraclio MCH (RBC) [Entitic mass] 30.0 pg Normal 25.9-34.0 [facility] Comment on above: Performed By: #### C BC ####[facility] Gcddawprhb[address] [place], [place] [address]Dr. Garima Heraclio MCHC (RBC) [Mass/Vol] 32.6 g/dL Normal 29.9-35.2 [facility] Comment on above: Performed By: #### C BC ####[facility] Ztoxtmpsms[address] [place], [place] [address]Dr. Garima Heraclio MCV (RBC) [Entitic vol] 91.9 fL Normal 80.0-94.0 [facility] Comment on above: Performed By: #### C BC ####[facility] Tersuhjiyg[address] [place], [place] [address]Dr. Garima Pulliam MONO # 0.4 103/ul Normal 0.3-0.8 [facility] Comment on above: Performed By: #### C BC ####[facility] [address]qgkrvia[address] [place], [place] [address]Dr. Chapisrenu Pulliam Monocytes/100 WBC (Bld) 4.8 % Normal 1.7-12.0 [facility] Comment on above: Performed By: #### C BC ####[facility] Fxlcrfhmlb[address] [place], [place] [address]Dr. Garima Pulliam NEUT # 7.1 103/ul Critically high 1.4-6.5 [facility] Comment on above: Performed By: #### C BC ####[facility] Tgptamoski26[address] [place], [place] [address]Oq. Garima Pulliam Neutrophils/100 WBC (Bld) 80.4 % Critically high 43.0-75.0 [facility] Comment on above: Performed By: #### C BC ####[facility] Druzgenpbd[address] [place] [id number]. Garima Pulliam Platelet mean volume (Bld) [Entitic vol] 9.1 fL Critically low 9.5-13.5 [facility] Comment on above: Performed By: #### C BC ####[facility] Kwgjhitars[address] [place] [id number]. Garima Pulliam PLT 200 103/ul Normal 150-450 [facility] Comment on above: Performed By: #### C BC ####[facility] Lzqvvjzbfe57[address] [place] [phone]. Garima Pulliam RBC 4.94 106/ul Normal 4.70-6.10 [facility] Comment on above: Performed By: #### C BC ####[facility] J[address]btkpbzvk24[address] [place] [phone]. Garima Pulliam WBC 8.9 103/ul Normal 4.0-11.0 [facility] Comment on above: Performed By: #### C BC ####[facility] Xjgluenctt9913 [place] [phone]. Garima Pulliam Covid-19 PCR (CVDTB)on SARS-CoV-2 (COVID-19) RNA MARIE+probe Ql (Unsp spec) Not detected Normal NOT DETECTED [facility] Comment on above: Result Comment: When diagnostic [...] for this test is supported by the [place] of Health and Human Service's declaration that [...] be used). Performed By: #### C VDTBH ####[facility] [address] [place] [address]Dr. Garima Pulliam LACTATE/LACTIC ACIDon 2021 Lactate [Moles/Vol] 1.7 mmol/L Normal 0.4-1.9 [facility] Comment on above: Performed By: #### L ACT ####[facility] Sttoakqghc[address] [place], [place] [address]Dr. Garima Pulliam PROF 14(COMP METB)on 022 Albumin [Mass/Vol] 3.8 g/dL Normal 3.4-5.0 [facility] Comment on above: Performed By: #### C MP, BNP, CMADM ####[facility] Jyhcbwiglf[address] [place], [place] [address]Dr. Garima Pulliam Albumin/Globulin [Mass ratio] 1.5 {ratio} Normal [facility] Comment on above: Performed By: #### C MP, BNP, CMADM ####[facility] Urvcttvuqd4[address] [place] [address]Dr. Garima Pulliam ALP [Catalytic activity/Vol] 62 U/L Normal 46-116 [facility] Comment on above: Performed By: #### C MP, BNP, CMADM ####[facility] [address]zesxmnyzk[address] [place] [address]Dr. Garima Pulliam ALT [Catalytic activity/Vol] 37 U/L Normal 16-63 [facility] Comment on above: Performed By: #### C MP, BNP, CMADM ####[facility] Isfrluqldm[address] [place] [address]Dr. Garima Pulliam Anion gap [Moles/Vol] 8.0 mmol/L Normal [facility] Comment on above: Performed By: #### C MP, BNP, CMADM ####[facility] Svtwkubnol[address] [place] [address]Dr. Garima Pulliam AST [Catalytic activity/Vol] 20 U/L Normal 15-37 [facility] Comment on above: Performed By: #### C MP, BNP, CMADM ####[facility] Iirjjvsfcf[address] [place] [address]Dr. Garima Pulliam Bilirubin [Mass/Vol] 0.6 mg/dL Normal 0.2-1.0 [facility] Comment on above: Performed By: #### C MP, BNP, CMADM ####[facility] Rpsjiwqgac7[address] [place] [address]Dr. Garima Pulliam Calcium [Mass/Vol] 9.1 mg/dL Normal 8.5-10.1 [facility] Comment on above: Performed By: #### C MP, BNP, CMADM ####[facility] O[address]irwqmuz[address] [place], [place] [address]Dr. Garima Pulliam Chloride [Moles/Vol] 103 mmol/L Normal 98-107 [facility] Comment on above: Performed By: #### C MP, BNP, CMADM ####[facility] Nwsodhbnog[address] [place], [place] [address]Dr. Garima Pulliam CO2 [Moles/Vol] 31.8 mmol/L Normal 21.0-32.0 [facility] Comment on above: Performed By: #### C MP, BNP, CMADM ####[facility] Exdbjfqknk[address] [place], [place] [address]Dr. Garima Pulliam Creatinine [Mass/Vol] 0.63 mg/dL Critically low 0.70-1.30 [facility] Comment on above: Performed By: #### C MP, BNP, CMADM ####[facility] Xchxtfwhti[address] [place], [place] [address]Dr. Garima Pulliam EGFR-AF [place] >60 Normal >=60 [facility] Comment on above: Performed By: #### C MP, BNP, CMADM ####[facility] Utaxpwvotb[address] [place], [place] [address]Dr. Garima Pulliam EGFR-NON AF [place] >60 Normal >=60 [facility] Comment on above: Performed By: #### C MP, BNP, CMADM ####[facility] Kxqbigfyca34[address] [place] [address]Dr. Garima Pluliam Globulin (S) [Mass/Vol] 2.6 g/dL Normal [facility] Comment on above: Performed By: #### C MP, BNP, CMADM ####[facility] Kgtdqimjyv[address] [place] [address]Dr. Garima Pulliam Glucose [Mass/Vol] 103 mg/dL Normal 74-[address] [facility] Comment on above: Performed By: #### C MP, BNP, CMADM ####[facility] Jlnwqncgxr[address] [place] [address]Dr. Garima Pulliam Potassium [Moles/Vol] 3.8 mmol/L Normal 3.5-5.1 [facility] Comment on above: Performed By: #### C MP, BNP, CMADM ####[facility] Wuuicuchoj[address] [place] [address]Dr. Garima Pulliam Protein [Mass/Vol] 6.4 g/dL Normal 6.4-8.[address] [facility] Comment on above: Performed By: #### C MP, BNP, CMADM ####[facility] [address] [place] [address]Dr. Garima Pulliam Sodium [Moles/Vol] 139 mmol/L Normal 136-[address] [facility] Comment on above: Performed By: #### C MP, BNP, CMADM ####[facility] [address]jo[address] [place] [address]Dr. Garima Pulliam Urea nitrogen [Mass/Vol] 7.0 mg/dL Normal 7.0-18.0 [facility] Comment on above: Performed By: #### C MP, BNP, CMADM ####[facility] W[address]dvwwtdh[address] [place] [address]Dr. Garima Pulliam Urea nitrogen/Creatinine [Mass ratio] 11.1 mg/mg Normal [facility] Comment on above: Performed By: #### C MP, BNP, CMADM ####[facility] J[address]zvgqohk[address] [place] [address]Dr. Garima Pulliam PROTIMEon 09-29-2022 INR Coag (PPP) [Relative time] 1.14 {INR} Normal [facility] Comment on above: Performed By: #### P T, PTT ####[facility] Xeqfmxcyew[address] [place], [place] [address]Dr. Garima Pulliam INR GUIDELINES SEE BELOW Normal [facility] Comment on above: Result Comment: [place] RED INR: 2.0 - 3.0 CONDITIONS NOT LISTED BELOW 2.5 - 3.5 FOR PROSTHETIC HEART VALVE REPLACEMENT 2.5 - 3.5 RECURRENT THROMBOSIS Performed By: #### P T, PTT ####[facility] Yglngvrory[address] [place], [place] [address]Dr. Garima Pulliam PT Coag (PPP) [Time] 12.2 s Critically high 9.0-11.6 [facility] Comment on above: Performed By: #### P T, PTT ####[facility] Wufkwdkqwp[address] [place], [place] [address]Dr. Garima Pulliam PTTon 09-29-2022 aPTT Coag (Bld) [Time] 29.3 s Normal 22.3-36.2 [facility] Comment on above: Performed By: #### P T, PTT ####[facility] Gopcwuqmxz7[address] [place], [place] [address]Dr. Garima Pulliam XR CHEST 1 Von 09-29-2022 XR CHEST 1 V Normal [facility] CBC AUTO DIFFon 09-26-2022 BASO # 0.0 103/ul Normal 0.0-0.1 [facility] Comment on above: Performed By: #### C BC ####[facility] Vueqmserrc104[address] [place], [place] [address]Dr. Garima Pulliam Basophils/100 WBC (Bld) 0.2 % Normal 0.2-2.0 [facility] Comment on above: Performed By: #### C BC ####[facility] Oieyjocsvg7[address] [place], [place] [address]Dr. Garima Pulliam EO # 0.1 103/ul Normal 0.0-0.7 [facility] Comment on above: Performed By: #### C BC ####[facility] Winwsoaynd16[address] [place], [place] [address]Dr. Garima Pulliam Eosinophils/100 WBC (Bld) 1.0 % Normal 0.9-7.0 [facility] Comment on above: Performed By: #### C BC ####[facility] Ldouvqarhm90[address] [place], [place] [address]Dr. Garima Pulliam Erythrocyte distribution width (RBC) [Ratio] 13.4 % Normal 11.0-15.0 [facility] Comment on above: Performed By: #### C BC ####[facility] Nfjnrkhnxz9470[address] [place], [place] [address]Dr. Garima Pulliam Hematocrit (Bld) [Volume fraction] 46.3 % Normal 42.0-54.0 [facility] Comment on above: Performed By: #### C BC ####[facility] Gcibvugqpx6[address] [place], [place] [address]Dr. Garima Pulliam Hemoglobin (Bld) [Mass/Vol] 15.3 g/dL Normal 14.0-18.0 [facility] Comment on above: Performed By: #### C BC ####[facility] Dxhhjvbvmc9[address] [place], [place] [address]Dr. Garima Pulliam IG # 0.05 10e3/ul Critically high 0.00-0.03 [facility] Comment on above: Performed By: #### C BC ####[facility] Rejfumkewy057[address] [place], [place] [address]Dr. Garima Pulliam IG % 0.4 % Normal 0.0-0.5 [facility] Comment on above: Performed By: #### C BC ####[facility] Hqzkpknuga67[address] [place], [place] [address]Dr. Garima Pulliam LYMPH # 1.7 103/ul Normal 1.2-3.8 [facility] Comment on above: Performed By: #### C BC ####[facility] Uelpwhwvkx6827[address] [place], [place] [address]Dr. Garima Pulliam Lymphocytes/100 WBC (Bld) 12.7 % Critically low 20.5-60.0 [facility] Comment on above: Performed By: #### C BC ####[facility] [address]apw[address] [place] [address]DrAdalberto Pulliam MANUAL DIFF REQ NO Normal [facility] Comment on above: Performed By: #### C BC ####[facility] Vrfszlsozt[address] [place] [address]Dr. Garima Pulliam MCH (RBC) [Entitic mass] 30.1 pg Normal 25.9-34.0 [facility] Comment on above: Performed By: #### C BC ####[facility] Jhicpvbobw5[address] [place], [place] [address]Dr. Garima Pulliam MCHC (RBC) [Mass/Vol] 33.0 g/dL Normal 29.9-35.2 [facility] Comment on above: Performed By: #### C BC ####[facility] Jqrjqutxdw0149[address] [place], [place] [address]DrAdalberto Pulliam MCV (RBC) [Entitic vol] 91.1 fL Normal 80.0-94.0 [facility] Comment on above: Performed By: #### C BC ####[facility] Nebbmuobcn4425[address] [place], [place] [address]DrAdalberto Pulliam MONO # 0.9 103/ul Critically high 0.3-0.8 [facility] Comment on above: Performed By: #### C BC ####[facility] Cybfzjujun287[address] [place], [place] [address]DrAdalberto Pulliam Monocytes/100 WBC (Bld) 7.0 % Normal 1.7-12.0 [facility] Comment on above: Performed By: #### C BC ####[facility] Zxmmgtxirl39112[address] [place], [place] [address]DrAdalberto Pulliam NEUT # 10.4 103/ul Critically high 1.4-6.5 [facility] Comment on above: Performed By: #### C BC ####[facility] Vxampdyjxf2845[address] [place], [place] [address]DrAdalberto Pulliam Neutrophils/100 WBC (Bld) 78.7 % Critically high 43.0-75.0 [facility] Comment on above: Performed By: #### C BC ####[facility] [address]colqm[address] [place] [address]Dr. Garima Pulliam Platelet mean volume (Bld) [Entitic vol] 8.9 fL Critically low 9.5-13.5 [facility] Comment on above: Performed By: #### C BC ####[facility] Znfwmqaasm[address] [place] [address]Dr. Garima Pulliam PLT 195 103/ul Normal 150-450 [facility] Comment on above: Performed By: #### C BC ####[facility] Ddhceotuqy35[address] [place], [place] [address]Dr. Garima Pulliam RBC 5.08 106/ul Normal 4.70-6.10 [facility] Comment on above: Performed By: #### C BC ####[facility] Quabowmldo33[address] [place], [place] [address]Dr. Garima Pulliam WBC 13.2 103/ul Critically high 4.0-11.0 [facility] Comment on above: Performed By: #### C BC ####[facility] Dmitjuzfbj9[address] [place], [place] [address]Dr. Garima Pulliam PROF 14(COMP METB)on 022 Albumin [Mass/Vol] 3.5 g/dL Normal 3.4-5.0 [facility] Comment on above: Performed By: #### C DAVID HSTROPN ####[facility] [address]ergp[address] [place] [address]Dr. Garima Pulliam Albumin/Globulin [Mass ratio] 1.2 {ratio} Normal [facility] Comment on above: Performed By: #### C RAFAT HERNANDEZTROPN ####[facility] [address]xciwutgo[address] [place] [address]Dr. Garima Pulliam ALP [Catalytic activity/Vol] 71 U/L Normal 46-116 [facility] Comment on above: Performed By: #### C DAVID HSTROPN ####[facility] Itfkijmyij[address] [place] [address]Dr. Garima Pulliam ALT [Catalytic activity/Vol] 37 U/L Normal 16-63 [facility] Comment on above: Performed By: #### C DAVID, HSTROPN ####[facility] T[address]uvtsbf[address] [place] [address]Dr. Garima Pulliam Anion gap [Moles/Vol] 4.8 mmol/L Normal [facility] Comment on above: Performed By: #### C DAVID, HSTROPN ####[facility] Zjuqgsvpsj69[address] [place], [place] [address]Dr. Garima Pulliam AST [Catalytic activity/Vol] 21 U/L Normal 15-37 [facility] Comment on above: Performed By: #### C DAVID, HSTROPN ####[facility] Cjtmhifqad[address] [place], [place] [address]Dr. Garima Pulliam Bilirubin [Mass/Vol] 0.3 mg/dL Normal 0.2-1.0 [facility] Comment on above: Performed By: #### C DAVID, HSTROPN ####[facility] [address]bcawc[address] [place] [address]Dr. Garima Pulliam Calcium [Mass/Vol] 8.9 mg/dL Normal 8.5-10.1 [facility] Comment on above: Performed By: #### C DAVID, HSTROPN ####[facility] [address]feakf[address] [place] [address]Dr. Garima Pulliam Chloride [Moles/Vol] 106 mmol/L Normal 98-107 [facility] Comment on above: Performed By: #### C DAVID, HSTROPN ####[facility] Movticevzh[address] [place] [address]Dr. Garima Pulliam CO2 [Moles/Vol] 29.8 mmol/L Normal 21.0-32.0 [facility] Comment on above: Performed By: #### C DAVID, HSTROPN ####[facility] [address]vglfsishg[address] [place] [address]Dr. Garima Pulliam Creatinine [Mass/Vol] 0.68 mg/dL Critically low 0.70-1.30 [facility] Comment on above: Performed By: #### C MP, HSTROPN ####[facility] [address]wvzbgpsgx[address] [place] [address]Dr. Garima Pulliam EGFR-AF [place] ISLANDER >60 Normal >=60 [facility] Comment on above: Performed By: #### C MP, HSTROPN ####[facility] V[address]klpdelw[address] [place] [address]Dr. Chapislan Pulliam EGFR-NON AF [place] ISLANDER >60 Normal >=60 [facility] Comment on above: Performed By: #### C MP, HSTROPN ####[facility] Xxvcpwuksw[address] [place] [address]Dr. Garima Pulliam Globulin (S) [Mass/Vol] 2.8 g/dL Normal [facility] Comment on above: Performed By: #### C MP, HSTROPN ####[facility] Anuucpacmb[address] [place] [address]Dr. Garima Pulliam Glucose [Mass/Vol] 133 mg/dL Critically high 74-106 [facility] Comment on above: Performed By: #### C MP, HSTROPN ####[facility] [address]xqpsbx[address] [place] [address]Dr. Chapisrenu Pulliam Potassium [Moles/Vol] 3.6 mmol/L Normal 3.5-5.1 [facility] Comment on above: Performed By: #### C MP, HSTROPN ####[facility] Vwftksxsnk6[address] [place] [address]Dr. Chapisrenu Pulliam Protein [Mass/Vol] 6.3 g/dL Critically low 6.4-8.2 [facility] Comment on above: Performed By: #### C MP, HSTROPN ####[facility] Dsektwdhso[address] [place], [place] [address]Dr. Chapisrenu Pulliam Sodium [Moles/Vol] 137 mmol/L Normal 136-145 [facility] Comment on above: Performed By: #### C MP, HSTROPN ####[facility] Blotqsvlhd[address] [place], [place] [address]Dr. Garima Pulliam Urea nitrogen [Mass/Vol] 15.0 mg/dL Normal 7.0-18.0 [facility] Comment on above: Performed By: #### C DAVID HSTROPN ####[facility] [address]xsuclwhby[address] [place] [address]Dr. Chapisrenu Pulliam Urea nitrogen/Creatinine [Mass ratio] 22.1 mg/mg Normal [facility] Comment on above: Performed By: #### C DAVID HSTROPN ####[facility] [address]zikgond[address] [place] [address]Dr. Garima Heraclio TROPONIN, HIGH SENSITIVITYon 09-26-2022 HSTROP 12.8 pg/mL Normal 4.0-76.1 [facility] Comment on above: Result Comment: CUT- OFF POINTS HAVE BEEN ESTABLISHED BASED ON THE FOURTH UNIVERSAL DEFINITIONS OF MYOCARDIALINFARCTION. THE UPPER REFERENCE LIMIT (URL) OF TROPONIN, DEFINED THE 99TH PERCENTILE OFcTnI DISTRIBUTION IN A REFERENCE POPULATION, HAS BEEN CONFIRMED THE DECISION THRESHOLDFOR IN DIAGNOSIS. Performed By: #### C DAVID HSTROPN ####[facility] [address]qsymf[address] [place] [address]Dr. Chapisrenu Pulliam XR CHEST 1 Von 09-26-2022 XR CHEST 1 V Normal [facility] XR CHEST 1 Von 09-16-2022 XR CHEST 1 V Normal [facility] CBC AUTO DIFFon 09-15-2022 BASO # 0.0 103/ul Normal 0.0-0.1 [facility] Comment on above: Performed By: #### C BC ####[facility] Ab[address]jwtsuc[address] [place] [address]Dr. Garima Heraclio Basophils/100 WBC (Bld) 0.1 % Critically low 0.2-2.0 [facility] Comment on above: Performed By: #### C BC ####[facility] Shbosfatwy[address] [place] [address]Dr. Garima Pulliam EO # 0.0 103/ul Normal 0.0-0.7 [facility] Comment on above: Performed By: #### C BC ####[facility] Vztbrqrnot[address] [place] [address]Dr. Garima Pulliam Eosinophils/100 WBC (Bld) 0.1 % Critically low 0.9-7.0 [facility] Comment on above: Performed By: #### C BC ####[facility] Urjranonjt[address] [place] [address]Dr. Garima Pulliam Erythrocyte distribution width (RBC) [Ratio] 14.1 % Normal 11.0-15.0 [facility] Comment on above: Performed By: #### C BC ####[facility] Tuwmoelkqv[address] [place], [place] [address]Dr. Garima Pulliam Hematocrit (Bld) [Volume fraction] 46.1 % Normal 42.0-54.0 [facility] Comment on above: Performed By: #### C BC ####[facility] Vvfcmirlgj9[address] [place], [place] [address]Dr. Garima Pulliam Hemoglobin (Bld) [Mass/Vol] 15.0 g/dL Normal 14.0-18.0 [facility] Comment on above: Performed By: #### C BC ####[facility] Pphqwisxkl[address] [place], [place] [address]Dr. Garima Pulliam IG # 0.03 10e3/ul Normal 0.00-0.03 [facility] Comment on above: Performed By: #### C BC ####[facility] Zsohqqgtlp[address] [place], [place] [address]Dr. Garima Pulliam IG % 0.3 % Normal 0.0-0.5 [facility] Comment on above: Performed By: #### C BC ####[facility] Mdtbmdlxip[address] [place], [place] [address]Dr. Garima Pulliam LYMPH # 0.6 103/ul Critically low 1.2-3.8 [facility] Comment on above: Performed By: #### C BC ####[facility] Agtxruaclm80[address] [place], [place] [address]Dr. Garima Pulliam Lymphocytes/100 WBC (Bld) 5.8 % Critically low 20.5-60.0 [facility] Comment on above: Performed By: #### C BC ####[facility] [address]posizdd[address] [place] [id number]. Garima Pulliam MANUAL DIFF REQ NO Normal [facility] Comment on above: Performed By: #### C BC ####[facility] Umunhtsojg[address] [place] [id number]. Garima Pulliam MCH (RBC) [Entitic mass] 30.2 pg Normal 25.9-34.0 [facility] Comment on above: Performed By: #### C BC ####[facility] Jkvlxguipu80[address] [place] [address]Dr. Garima Pulliam MCHC (RBC) [Mass/Vol] 32.5 g/dL Normal 29.9-35.2 [facility] Comment on above: Performed By: #### C BC ####[facility] Kqdiagmyaj7[address] [place] [address]Dr. Garima Pulliam MCV (RBC) [Entitic vol] 92.8 fL Normal 80.0-94.0 [facility] Comment on above: Performed By: #### C BC ####[facility] Cwnkkxfzop25[address] [place] [address]Dr. Garima Heraclio MONO # 0.3 103/ul Normal 0.3-0.8 [facility] Comment on above: Performed By: #### C BC ####[facility] Yyosozfmku[address] [place] [id number]. Garima Heraclio Monocytes/100 WBC (Bld) 3.2 % Normal 1.7-12.0 [facility] Comment on above: Performed By: #### C BC ####[facility] Ngkvfvzzuo6447 [place] [id number]. Garima Pulliam NEUT # 9.8 103/ul Critically high 1.4-6.5 [facility] Comment on above: Performed By: #### C BC ####[facility] Kosupgsfdy16[address] [place] [id number]. Garima Pulliam Neutrophils/100 WBC (Bld) 90.5 % Critically high 43.0-75.0 [facility] Comment on above: Performed By: #### C BC ####[facility] Qmcoxqedmu5[address] [place] [id number]. Garima Pulliam Platelet mean volume (Bld) [Entitic vol] 9.4 fL Critically low 9.5-13.5 [facility] Comment on above: Performed By: #### C BC ####[facility] [address]orvqumjyo[address] [place] [id number]. Garima Pulliam PLT 208 103/ul Normal 150-450 [facility] Comment on above: Performed By: #### C BC ####[facility] Yynjimubpw[address] [place] [address]Dr. Garima Pulliam RBC 4.97 106/ul Normal 4.70-6.10 [facility] Comment on above: Performed By: #### C BC ####[facility] Ycvkvovuot[address] [place] [address]Dr. Garima Pulliam WBC 10.8 103/ul Normal 4.0-11.0 [facility] Comment on above: Performed By: #### C BC ####[facility] Vwcjgoiwuh[address] [place] [address]Dr. Garima Pulliam PROF 14(COMP METB)on 022 Albumin [Mass/Vol] 4.0 g/dL Normal 3.4-5.0 [facility] Comment on above: Performed By: #### C MP ####[facility] Ccaantjcbz[address] [place] [address]Dr. Garima Pulliam Albumin/Globulin [Mass ratio] 1.5 {ratio} Normal [facility] Comment on above: Performed By: #### C MP ####[facility] Qhzavtdshs[address] [place] [address]Dr. Garima Pulliam ALP [Catalytic activity/Vol] 73 U/L Normal 46-116 [facility] Comment on above: Performed By: #### C MP ####[facility] Gxnrnsoexy[address] [place] [address]Dr. Garima Pulliam ALT [Catalytic activity/Vol] 42 U/L Normal 16-63 [facility] Comment on above: Performed By: #### C MP ####[facility] Uxafbmovoh[address] [place] [address]Dr. Garima Pulliam Anion gap [Moles/Vol] 9.1 mmol/L Normal [facility] Comment on above: Performed By: #### C MP ####[facility] Tvxrxsszyj[address] [place], [place] [address]Dr. Garima Pulliam AST [Catalytic activity/Vol] 28 U/L Normal 15-37 [facility] Comment on above: Performed By: #### C MP ####[facility] Lqugaxhoea[address] [place], [place] [address]Dr. Garima Pulliam Bilirubin [Mass/Vol] 0.6 mg/dL Normal 0.2-1.0 [facility] Comment on above: Performed By: #### C MP ####[facility] Htixkxeike97[address] [place], [place] [address]Dr. Garima Pulliam Calcium [Mass/Vol] 8.6 mg/dL Normal 8.5-10.[address] [facility] Comment on above: Performed By: #### C MP ####[facility] Skkktzifcw42[address] [place], [place] [address]Dr. Garima Pulliam Chloride [Moles/Vol] 105 mmol/L Normal 98-107 [facility] Comment on above: Performed By: #### C MP ####[facility] Zobvhgvyeh23[address] [place], [place] [address]Dr. Garima Pulliam CO2 [Moles/Vol] 28.5 mmol/L Normal 21.0-32.0 [facility] Comment on above: Performed By: #### C MP ####[facility] Iaxkvejfbv7[address] [place], [place] [address]Dr. Garima Heraclio Creatinine [Mass/Vol] 0.78 mg/dL Normal 0.70-1.30 [facility] Comment on above: Performed By: #### C MP ####[facility] Llrschvdic39[address] [place], [place] [address]Dr. Chapisrenu Heraclio EGFR-AF [place]LANDER >60 Normal >=60 [facility] Comment on above: Performed By: #### C MP ####[facility] Usumnbjvyy[address] [place], [place] [address]Dr. Garima Pulliam EGFR-NON AF [place] ISLANDER >60 Normal >=60 [facility] Comment on above: Performed By: #### C MP ####[facility] Jqaafyrzya[address] [place] [address]Dr. Garima Pulliam Globulin (S) [Mass/Vol] 2.7 g/dL Normal [facility] Comment on above: Performed By: #### C MP ####[facility] Wduqvmkxig40[address] [place] [address]Dr. Garima Pulliam Glucose [Mass/Vol] 220 mg/dL Critically high 74-106 [facility] Comment on above: Performed By: #### C MP ####[facility] Eosvpgewel[address] [place] [address]Dr. Garima Pulliam Potassium [Moles/Vol] 3.6 mmol/L Normal 3.5-5.1 [facility] Comment on above: Performed By: #### C MP ####[facility] Efxdvminao[address] [place], [place] [address]Dr. Garima Pulliam Protein [Mass/Vol] 6.7 g/dL Normal 6.4-8.2 [facility] Comment on above: Performed By: #### C MP ####[facility] Fajxdjsvrx[address] [place], [place] [address]Dr. Garima Pulliam Sodium [Moles/Vol] 139 mmol/L Normal 136-145 [facility] Comment on above: Performed By: #### C MP ####[facility] Cqjptgbzzs[address] [place], [place] [address]Dr. Garima Pulliam Urea nitrogen [Mass/Vol] 11.0 mg/dL Normal 7.0-18.0 [facility] Comment on above: Performed By: #### C MP ####[facility] Zjicwiczzm[address] [place], [place] [address]Dr. Garima Pulliam Urea nitrogen/Creatinine [Mass ratio] 14.1 mg/mg Normal [facility] Comment on above: Performed By: #### C MP ####[facility] Jbzalrxsjl4[address] [place], [place] [address]Dr. Garima Pulliam CARDIAC NASH 3-6on 2 CK [Catalytic activity/Vol] 240 U/L Normal 39-308 [facility] Comment on above: Performed By: #### C MREP ####[facility] Qvzarfrpmj[address] [place] [address]Dr. Garima Pulliam CK.MB [Mass/Vol] 10.38 ng/mL Critically high <=3.60 [facility] Comment on above: Performed By: #### C MREP ####[facility] Zafnfnjoti[address] [place] [address]Dr. Garima Pulliam HSTROP 18.5 pg/mL Normal 4.0-76.1 [facility] Comment on above: Result Comment: CUT- OFF POINTS HAVE BEEN ESTABLISHED BASED ON THE FOURTH UNIVERSAL DEFINITIONS OF MYOCARDIALINFARCTION. THE UPPER REFERENCE LIMIT (URL) OF TROPONIN, DEFINED THE 99TH PERCENTILE OFcTnI DISTRIBUTION IN A REFERENCE POPULATION, HAS BEEN CONFIRMED THE DECISION THRESHOLDFOR IN DIAGNOSIS. Performed By: #### C MREP ####[facility] [address]rugiw[address] [place] [address]Dr. Garima Pulliam CK [Catalytic activity/Vol] 257 U/L Normal 39-308 [facility] Comment on above: Performed By: #### C MREP ####[facility] Icctyibuar[address] [place], [place] [address]Dr. Garima Pulliam CK.MB [Mass/Vol] 9.89 ng/mL Critically high <=3.60 [facility] Comment on above: Performed By: #### C MREP ####[facility] Rrezmytkkg[address] [place], [place] [address]Dr. Garima Pulliam HSTROP 16.9 pg/mL Normal 4.0-76.1 [facility] Comment on above: Result Comment: CUT- OFF POINTS HAVE BEEN ESTABLISHED BASED ON THE FOURTH UNIVERSAL DEFINITIONS OF MYOCARDIALINFARCTION. THE UPPER REFERENCE LIMIT (URL) OF TROPONIN, DEFINED THE 99TH PERCENTILE OFcTnI DISTRIBUTION IN A REFERENCE POPULATION, HAS BEEN CONFIRMED THE DECISION THRESHOLDFOR IN DIAGNOSIS. Performed By: #### C MREP ####[facility] [address]wkajjng[address] [place] [address]Dr. Garima Heraclio CBC AUTO DIFFon 10-22-2022 BASO # 0.0 103/ul Normal 0.0-0.1 [facility] Comment on above: Performed By: #### C BC ####[facility] Wzvtmoyzkg39[address] [place] [id number]. Garima Pulliam Basophils/100 WBC (Bld) 0.1 % Critically low 0.2-2.0 [facility] Comment on above: Performed By: #### C BC ####[facility] [facility] [address]if[address] [place] [address]Dr. Garima Pulliam EO # 0.0 103/ul Normal 0.0-0.7 [facility] Comment on above: Performed By: #### C BC ####[facility] Pyxyunrfov[address] [place], [place] [address]Dr. Chapisrenu Heraclio Eosinophils/100 WBC (Bld) 0.0 % Critically low 0.9-7.0 [facility] Comment on above: Performed By: #### C BC ####[facility] Tuwqzhhtbm138[address] [place], [place] [address]Dr. Garima Pulliam Erythrocyte distribution width (RBC) [Ratio] 13.6 % Normal 11.0-15.0 [facility] Comment on above: Performed By: #### C BC ####[facility] Onswrhutes[address] [place], [place] [address]Dr. Garima Pulliam Hematocrit (Bld) [Volume fraction] 48.2 % Normal 42.0-54.0 [facility] Comment on above: Performed By: #### C BC ####[facility] Bpijnnkzme8[address] [place], [place] [address]Dr. Garima Pulliam Hemoglobin (Bld) [Mass/Vol] 16.0 g/dL Normal 14.0-18.0 [facility] Comment on above: Performed By: #### C BC ####[facility] Fwiygyujod9[address] [place], [place] [address]Dr. Chapisrenu Heraclio IG # 0.02 10e3/ul Normal 0.00-0.03 [facility] Comment on above: Performed By: #### C BC ####[facility] [address] [place] [id number]. Garima Pulliam IG % 0.3 % Normal 0.0-0.5 [facility] Comment on above: Performed By: #### C BC ####[facility] [address]cl[address] [place] [address]Dr. Garima Heraclio LYMPH # 0.5 103/ul Critically low 1.2-3.8 [facility] Comment on above: Performed By: #### C BC ####[facility] [address]rg[address]yvs[address] [place] [address]Dr. Garima Heraclio Lymphocytes/100 WBC (Bld) 7.7 % Critically low 20.5-60.0 [facility] Comment on above: Performed By: #### C BC ####[facility] Jpfxprfqvo9[address] [place], [place] [address]Dr. Chapisrenu Pulliam MANUAL DIFF REQ NO Normal [facility] Comment on above: Performed By: #### C BC ####[facility] Jcjnljylxa[address] [place], [place] [address]Dr. Garima Heraclio MCH (RBC) [Entitic mass] 30.6 pg Normal 25.9-34.0 [facility] Comment on above: Performed By: #### C BC ####[facility] Ewwvbbrlrb[address] [place], [place] [address]Dr. Garima Pulliam MCHC (RBC) [Mass/Vol] 33.2 g/dL Normal 29.9-35.2 [facility] Comment on above: Performed By: #### C BC ####[facility] Pxvefodzjj[address] [place], [place] [address]Dr. Garima Heraclio MCV (RBC) [Entitic vol] 92.2 fL Normal 80.0-94.0 [facility] Comment on above: Performed By: #### C BC ####[facility] Tt[address]uspcg[address] [place], [place] [address]Dr. Garima Pulliam MONO # 0.0 103/ul Critically low 0.3-0.8 [facility] Comment on above: Performed By: #### C BC ####[facility] [address] [place] [id number]. Garima Pulliam Monocytes/100 WBC (Bld) 0.4 % Critically low 1.7-12.0 [facility] Comment on above: Performed By: #### C BC ####[facility] Uttlfmlsxk8[address] [place] [id number]. Garima Pulliam NEUT # 6.2 103/ul Normal 1.4-6.5 [facility] Comment on above: Performed By: #### C BC ####[facility] Rwehaceyyd[address] [place] [address]Dr. Garima Pulliam Neutrophils/100 WBC (Bld) 91.5 % Critically high 43.0-75.0 [facility] Comment on above: Performed By: #### C BC ####[facility] [address]qslwyf[address] [place] [address]Dr. Garima Pulliam Platelet mean volume (Bld) [Entitic vol] 8.7 fL Critically low 9.5-13.5 [facility] Comment on above: Performed By: #### C BC ####[facility] [address]sfmlbdy[address] [place] [address]Dr. Garima Pulliam PLT 179 103/ul Normal 150-450 [facility] Comment on above: Performed By: #### C BC ####[facility] [address]jruup[address] [place] [id number]. Garima Pulliam RBC 5.23 106/ul Normal 4.70-6.10 [facility] Comment on above: Performed By: #### C BC ####[facility] Ybsudxeido[address] [place] [address]Dr. Garima Pulliam WBC 6.7 103/ul Normal 4.0-11.0 [facility] Comment on above: Performed By: #### C BC ####[facility] [address]qqrzdzg[address] [place] [address]Dr. Garima Pulliam PROF CHEM 8 (BAS METB)on Anion gap [Moles/Vol] 12.1 mmol/L Normal Th [facility] Comment on above: Performed By: #### B MP ####[facility] [address]lrwwtbt[address] [place] [id number]. Garima Pulliam Calcium [Mass/Vol] 8.7 mg/dL Normal 8.5-10.[address] [facility] Comment on above: Performed By: #### B MP ####[facility] [address]spwxmvoys[address] [place] [id number]. Garima Pulliam Chloride [Moles/Vol] 105 mmol/L Normal 98-107 [facility] Comment on above: Performed By: #### B MP ####[facility] [address]pejrmtvz83[address] [place] [phone]. Garima Pulliam CO2 [Moles/Vol] 25.5 mmol/L Normal 21.0-32.0 [facility] Comment on above: Performed By: #### B MP ####[facility] V[address]qffjflzy[address] [place] [address]Dr. Garima Pulliam Creatinine [Mass/Vol] 0.63 mg/dL Critically low 0.70-1.30 [facility] Comment on above: Performed By: #### B MP ####[facility] [address]rip[address] [place] [address]Dr. Garima Pulliam EGFR-AF [place]LANDER >60 Normal >=60 [facility] Comment on above: Performed By: #### B MP ####[facility] Iwo[address]acvonh[address] [place] [address]Dr. Garima Pulliam EGFR-NON AF [place]ER >60 Normal >=60 [facility] Comment on above: Performed By: #### B MP ####[facility] X[address]ckbcdupa[address] [place] [address]Dr. Garima Pulliam Glucose [Mass/Vol] 162 mg/dL Critically high 74-106 [facility] Comment on above: Performed By: #### B MP ####[facility] Vlsueualxm[address] [place], [place] [address]Dr. Garima Pulliam Potassium [Moles/Vol] 3.6 mmol/L Normal 3.5-5.1 [facility] Comment on above: Performed By: #### B MP ####[facility] Ufdhzskvjv[address] [place], [place] [address]Dr. Garima Pulliam Sodium [Moles/Vol] 139 mmol/L Normal 136-145 [facility] Comment on above: Performed By: #### B DAVID ####[facility] Tgfacqcxsg54[address] [place] [address]Dr. Garima Pulliam Urea nitrogen [Mass/Vol] 9.0 mg/dL Normal 7.0-18.0 [facility] Comment on above: Performed By: #### B DAVID ####[facility] [address]wajkedvl[address] [place] [address]Dr. Garima Pulliam Urea nitrogen/Creatinine [Mass ratio] 14.3 mg/mg Normal [facility] Comment on above: Performed By: #### B DAVID ####[facility] Pnxmmicusi[address] [place] [address]Dr. Chapisrenu Pulliam CARDIAC NASH ADMITon 09-12- 022 CK [Catalytic activity/Vol] 304 U/L Normal 39-308 [facility] Comment on above: Performed By: #### B NANCY HERNANDEZ ####[facility] Y[address]aybxhjti[address] [place] [address]Dr. Garima Pulliam CK.MB [Mass/Vol] 11.81 ng/mL Critically high <=3.60 Th [facility] Comment on above: Performed By: #### B NANCY HERNANDEZ ####[facility] [address]pkeqvlupf[address] [place] [address]Dr. Garima Heraclio HSTROP 13.3 pg/mL Normal 4.0-76.1 [facility] Comment on above: Result Comment: CUT- OFF POINTS HAVE BEEN ESTABLISHED BASED ON THE FOURTH UNIVERSAL DEFINITIONS OF MYOCARDIALINFARCTION. THE UPPER REFERENCE LIMIT (URL) OF TROPONIN, DEFINED THE 99TH PERCENTILE OFcTnI DISTRIBUTION IN A REFERENCE POPULATION, HAS BEEN CONFIRMED THE DECISION THRESHOLDFOR IN DIAGNOSIS. Performed By: #### B NANCY HERNANDEZ ####[facility] Szsrlkgcjn[address] [place] [address]Dr. Garima Pulliam DORIS 133 ng/mL Critically high 16-96 [facility] Comment on above: Performed By: #### B NANCY HERNANDEZ ####[facility] Nsqurpviml43[address] [place] [address]Dr. Garima Pulliam CBC AUTO DIFFon 09-12-2022 BASO # 0.0 103/ul Normal 0.0-0.1 [facility] Comment on above: Performed By: #### C BC ####[facility] Y[address]rq[address] [place], [place] [address]Dr. Garima Heraclio Basophils/100 WBC (Bld) 0.2 % Normal 0.2-2.0 [facility] Comment on above: Performed By: #### C BC ####[facility] Mgdcuiuqrj037[address] [place], [place] [address]Dr. Garima Heracilo EO # 0.2 103/ul Normal 0.0-0.7 [facility] Comment on above: Performed By: #### C BC ####[facility] Mmeuivfrtf9947[address] [place], [place] [address]Dr. Chapisrenu Pulliam Eosinophils/100 WBC (Bld) 1.3 % Normal 0.9-7.0 [facility] Comment on above: Performed By: #### C BC ####[facility] Sewmpylril59[address] [place], [place] [address]Dr. Garima Pulliam Erythrocyte distribution width (RBC) [Ratio] 13.7 % Normal 11.0-15.0 [facility] Comment on above: Performed By: #### C BC ####[facility] Caotwwhxym3[address] [place], [place] [address]Dr. Garima Pulliam Hematocrit (Bld) [Volume fraction] 46.4 % Normal 42.0-54.0 [facility] Comment on above: Performed By: #### C BC ####[facility] Dyvjbwfhqv17[address] [place], [place] [address]Dr. Garima Pulliam Hemoglobin (Bld) [Mass/Vol] 15.7 g/dL Normal 14.0-18.0 [facility] Comment on above: Performed By: #### C BC ####[facility] Jnthdvfzuu04[address] [place], [place] [address]Dr. Garima Pulliam IG # 0.04 10e3/ul Critically high 0.00-0.03 [facility] Comment on above: Performed By: #### C BC ####[facility] Wfcokcdtzk[address] [place] [id number]. Garima Pulliam IG % 0.3 % Normal 0.0-0.5 [facility] Comment on above: Performed By: #### C BC ####[facility] Cpqbfzcntn85[address] [place] [address]Dr. Garima Pulliam LYMPH # 1.7 103/ul Normal 1.2-3.8 [facility] Comment on above: Performed By: #### C BC ####[facility] Xvkxzdnnor3[address] [place] [address]Dr. Garima Pulliam Lymphocytes/100 WBC (Bld) 11.5 % Critically low 20.5-60.0 [facility] Comment on above: Performed By: #### C BC ####[facility] Rcvdbufdxz40[address] [place] [id number]. Garima Pulliam MANUAL DIFF REQ NO Normal [facility] Comment on above: Performed By: #### C BC ####[facility] Bl[address]trnqd7[address] [place] [id number]. Garima Pulliam MCH (RBC) [Entitic mass] 31.0 pg Normal 25.9-34.0 [facility] Comment on above: Performed By: #### C BC ####[facility] Ycmymgdkjn0535 [place] [address]Dr. Garima Pulliam MCHC (RBC) [Mass/Vol] 33.8 g/dL Normal 29.9-35.2 [facility] Comment on above: Performed By: #### C BC ####[facility] [address]sdbtzycu5[address] [place] [address]Dr. Garima Pulliam MCV (RBC) [Entitic vol] 91.7 fL Normal 80.0-94.0 [facility] Comment on above: Performed By: #### C BC ####[facility] Mecmltqykb4[address] [place] [address]Dr. Garima Heraclio MONO # 0.8 103/ul Normal 0.3-0.8 [facility] Comment on above: Performed By: #### C BC ####[facility] Lryvztasbz69[address] [place] [address]Dr. Garima Pulliam Monocytes/100 WBC (Bld) 5.2 % Normal 1.7-12.0 [facility] Comment on above: Performed By: #### C BC ####[facility] Hakoqsdhvx54[address] [place] [id number]. Garima Pulliam NEUT # 11.7 103/ul Critically high 1.4-6.5 [facility] Comment on above: Performed By: #### C BC ####[facility] Ibglexjvdy69[address] [place] [address]Dr. Garima Pulliam Neutrophils/100 WBC (Bld) 81.5 % Critically high 43.0-75.0 [facility] Comment on above: Performed By: #### C BC ####[facility] [address]vh[address]ib[address] [place] [address]Dr. Garima Pulliam Platelet mean volume (Bld) [Entitic vol] 8.6 fL Critically low 9.5-13.5 [facility] Comment on above: Performed By: #### C BC ####[facility] [address]caezrags5[address] [place] [id number]. Garima Pulliam PLT 191 103/ul Normal 150-450 [facility] Comment on above: Performed By: #### C BC ####[facility] [address]wotlyfe[address] [place], [place] [address]Dr. Garima Pulliam RBC 5.06 106/ul Normal 4.70-6.10 [facility] Comment on above: Performed By: #### C BC ####[facility] Bqfdgpegyi[address] [place], [place] [address]Dr. Garima Pulliam WBC 14.4 103/ul Critically high 4.0-11.0 [facility] Comment on above: Performed By: #### C BC ####[facility] Xwpxlzpnwh[address] [place], [place] [address]Dr. Garima Pulliam [facility] SARS-CoV-2 (COVID-19) RNA MARIE+probe Ql (Unsp spec) Not detected Normal NOT DETECTED [facility] Comment on above: Result Comment: When [...] for this test is supported by the [place] of Health and Human Service's declaration that [...] be used). Performed By: #### C VDTBH ####[facility] Pbrtxtetmh2[address] [place], [place] [address]Dr. Garima Pulliam LACTATE/LACTIC ACIDon 2021 Lactate [Moles/Vol] 1.0 mmol/L Normal 0.4-1.9 [facility] Comment on above: Performed By: #### L ACT ####[facility] Wztvufkarj4[address] [place], [place] [address]Dr. Garima Pulliam PROF CHEM 8 (BAS METB)on Anion gap [Moles/Vol] 11.6 mmol/L Normal [facility] Comment on above: Performed By: #### B NANCY HERNANDEZ ####[facility] Vmgdsabrzr[address] [place] [address]Dr. Garima Pulliam Calcium [Mass/Vol] 9.2 mg/dL Normal 8.5-10.1 [facility] Comment on above: Performed By: #### B NANCY HERNANDEZ ####[facility] Kticissiyb[address] [place] [address]Dr. Garima Pulliam Chloride [Moles/Vol] 105 mmol/L Normal 98-107 [facility] Comment on above: Performed By: #### B MP, CMADM ####[facility] Z[address]ihstxaak8[address] [place] [id number]. Garima Pulliam CO2 [Moles/Vol] 25.9 mmol/L Normal 21.0-32.0 [facility] [place] Comment on above: Performed By: #### B DAVID, CMADM ####[facility] Pkseurmces[address] [place] [address]Dr. Garima Pulliam Creatinine [Mass/Vol] 0.72 mg/dL Normal 0.70-1.30 [facility] Comment on above: Performed By: #### B DAVID, CMADM ####[facility] Xwkqyfrkty94[address] [place] [id number]. Garima Pulliam EGFR-AF [place]LANDER >60 Normal >=60 [facility] [place] Comment on above: Performed By: #### B DAVID, CMADM ####[facility] Nisixxizpw67[address] [place] [address]Dr. Chapisrenu Pulliam EGFR-NON AF [place]ER >60 Normal >=60 [facility] Comment on above: Performed By: #### B DAVID, CMAANA ROSA ####[facility] [address]axpwuuyfv[address] [place] [address]Dr. Garima Pulliam Glucose [Mass/Vol] 111 mg/dL Critically high 74-106 [facility] Comment on above: Performed By: #### B DAVID, CMADM ####[facility] [address]kfpfxrwvq84[address] [place] [address]Dr. Chapisrenu Pulliam Potassium [Moles/Vol] 3.5 mmol/L Normal 3.5-5.1 [facility] Comment on above: Performed By: #### B DAVID, CMADM ####[facility] [address]cwrgpszov36[address] [place] [address]Dr. Chapisrenu Pulliam Sodium [Moles/Vol] 139 mmol/L Normal 136-145 [facility] Comment on above: Performed By: #### B DAVID, CMADM ####[facility] [address]okfqwi[address] [place] [address]Dr. Garima Pulliam Urea nitrogen [Mass/Vol] 7.0 mg/dL Normal 7.0-18.0 [facility] Comment on above: Performed By: #### B DAVID, CMADM ####[facility] [address] [place], [place] [address]Nb. Garima Pulliam Urea nitrogen/Creatinine [Mass ratio] 9.7 mg/mg Normal [facility] Comment on above: Performed By: #### B MP, CMADM ####[facility] [address] [place], [place] [address]Xf. Garima Pulliam XR CHEST 1 Von 09-12-2022 XR CHEST 1 V Normal [facility] Encounters Encounter Date Encounter Type Care Provider [...] Facility:H1 Payers Date Payer Category Payer Unknown [id number] 1960 Medicaid [id number] 1960 Unknown [id number] 1960 Unknown [id number] 1954 Unknown [id number] 2.16.84 0.1.436600.3.579.2.593 1954 Unknown [id number] 2.16.84 0.1.878502.3.579.2.593 1954 Unknown [id number] 2.16.84 0.1.375416.3.579.2.593 1954 Unknown [id number] 2.16.84 0.1.068716.3.579.2.593 1954 Unknown [id number] 2.16.84 0.1.969999.3.579.2.593 1954 Unknown [id number] 2.16.84 0.1.146199.3.579.2.593 1954 Unknown [id number] 2.16.84 0.1.918745.3.579.2.593 1954 Unknown [id number] 2.16.84 0.1.785637.3.579.2.593 1954 Unknown [id number] 2.16.84 0.1.870214.3.579.2.593 1954 Unknown [id number] 2.16.84 0.1.095789.3.579.2.593 1954 Unknown [id number] 2.16.84 0.1.434250.3.579.2.593 1954 Unknown [id number] 2.16.84 0.1.400207.3.579.2.593 1954 Unknown [id number] 2.16.84 0.1.021980.3.579.2.593 1954 Unknown [id number] 2.16.84 0.1.481970.3.579.2.593 1954 Unknown [id number] 2.16.84 0.1.381379.3.579.2.593 1954 Unknown [id number] 2.16.84 0.1.494023.3.579.2.593 1954 Unknown [id number] 2.16.84 0.1.931843.3.579.2.593 1954 Unknown [id number] 2.16.84 0.1.109619.3.579.2.593 1954 Unknown [id number] 2.16.84 0.1.087455.3.579.2.593 1954 Unknown [id number] 2.16.84 0.1.122253.3.579.2.593 Summary Purpose Family History No Family History [...] BE BASED ON THE PRIMARY CLINICAL RECORDS. [facility] [employer] [facility]. provides no warranty or guarantee of the accuracy or completeness of information in this document.
[2024-05-14 20:55] VITALS: BP 172/84; PULSE 110; TEMP 36.6; O2SAT 93; BMI 23.7
[2024-05-14 21:02] VITALS: O2SAT 93
[2024-05-14 21:42] VITALS: PULSE 89; O2SAT 92
[2024-05-14] MEDS: IPRATROPIUM/ALBUTEROL SULFATE 3 ML AMPUL.NEB IH (21:42)
--- NOTE | 2024-05-14 21:49 | ED_ITS ---
HPI - SOB/Dyspnea General Chief Complaint: Shortness of Breath/Dyspnea Stated Complaint: Shortness of Breath Time Seen by Provider: 05/14/24 21:47 Source: patient Mode of arrival: Wheelchair Limitations: no limitations History of Present Illness HPI Narrative: history COPD. Well known to the department. daily smoker. Presents complaining of shortness of breath. No fever. dry cough. No nausea or vomiting Related Data Home Medications ?Medication ?Instructions ?Recorded ?Confirmed albuterol sulfate 2.5 mg/3 mL 2.5 mg inhalation Q6H PRN 11/02/23 04/16/24 (0.083 %) solution for nebulization shortness of breath or wheezing albuterol sulfate 90 mcg/actuation 2 inh inhalation Q6H PRN shortness 03/13/24 04/16/24 aerosol inhaler of breath or wheezing Previous Rx's ?Medication ?Instructions ?Recorded losartan 100 mg tablet 100 mg PO DAILY #30 tabs 12/27/23 azithromycin 250 mg tablet See Rx Instructions PO .COMPLEX #6 04/16/24 (Zithromax Z-Luis) tabs prednisone 20 mg tablet 40 mg (2 x 20 mg) PO DAILY 5 days 04/16/24 #10 tabs Allergies Allergy/AdvReac Type Severity Reaction Status Date / Time No Known Drug Allergies Allergy Verified 05/14/24 20:54 Review of Systems ROS Status of ROS 10 or more systems reviewed and unremark able except as noted in history and below [facility] Medical History (Updated 05/14/24 @ 21:56 by Júnior Andrade MD) Hypokalemia ?E87.6 - Hypokalemia (ICD-10) New onset type 2 diabetes mellitus ?E11.9 - Type 2 diabetes mellitus without complications (ICD-10) Lower extremity edema ?R60.0 - Localized edema (ICD-10) Edema ?R60.9 - Edema, unspecified (ICD-10) Acute hyperglycemia ?R73.9 - Hyperglycemia, unspecified (ICD-10) Tobacco abuse ?Z72.0 - Tobacco use (ICD-10) HTN (hypertension) ?I10 - Essential (primary) hypertension (ICD-10) Community acquired pneumonia ?J18.9 - Pneumonia, unspecified organism (ICD-10) Chronic obstructive pulmonary disease ?J44.9 - Chronic obstructive pulmonary disease, unspecified (ICD-10) Acute exacerbation of chronic obstructive pulmonary disease (COPD) ?J44.1 - Chronic obstructive pulmonary disease with (acute) exacerbation (ICD-10) RLL pneumonia ?J18.9 - Pneumonia, unspecified organism (ICD-10) COPD (chronic obstructive pulmonary disease) ?J44.9 - Chronic obstructive pulmonary disease, unspecified (ICD-10) Surgical History (Updated 01/29/24 @ 06:45 by Latonia Martin RN) Hx of tonsillectomy ?Z90.89 - Acquired absence of other organs (ICD-10) Family History (Updated 12/25/23 @ 21:28 by Kym Ordaz) Mother Family history of cancer Family history of hypertension Father Family history of cancer Social History Within the past year, how often did you have a drink containing alcohol: 4 or more times a week Within the past year, how many standard drinks containing alcohol did you have on a typical day: 3 or 4 Within the past year, how often did you have six or more drinks on one occasion: less than monthly Total score: 3 Score interpretation: A score of 4 or more indicates drinking is likely to affect patient's safety. Smoking status: Current every day smoker Non-prescribed substance use: cannabis (any form) Previous occupational history: retired Highest level of school completed/degree received: high school graduate Are you now , , , , never or living with a partner: In a typical week, how many times do you talk on the telephone with family, friends, or neighbors: twice per week How often do you get together with friends or relatives: once per week How often do you attend uatsdin or protestant services: never Do you belong to any clubs or organizations such as uatsdin groups unions, fraternal or athletic groups, or school groups: no Total score: 1 Score interpretation: A score of less than or equal to 1 indicates the most socially isolated. Little interest or pleasure in doing things: several days Feeling down, depressed, or hopeless: not at all Feel stressed/tense/nervous/anxious/difficulty sleeping: not at all Do you think of yourself as: straight/heterosexual Gender Identity: male Exam Constitutional Vital Signs, click to edit/add: Last Vital Signs Temp 97.9 F 05/14/24 20:55 Pulse 89 05/14/24 21:42 Resp 18 05/14/24 21:42 BP 172/84 H 05/14/24 20:55 Pulse Ox 92 L 05/14/24 21:42 O2 Del Method Room Air 05/14/24 21:42 Common normals: no apparent distress (mild distress) HENMT Common normals: normocephalic and head/scalp atraumatic Eye Common normals: EOMs intact bilaterally and conjunctivae normal Respiratory Other: diminished breath sounds Cardio Common normals: regular rate, regular rhythm, S1 normal heart sound and S2 normal heart sound GI Common normals: Normal to inspection, nondistended, normoactive bowel sounds present, soft to palpation and non-tender Extremity Common normals: normal to inspection and full ROM Neuro Common normals: oriented x3, CN's II-XII intact bilaterally, moves all extremities and no focal motor deficits Psych Appearance: grossly normal Course Vital Signs Vital signs: Vital Signs Temperature 97.9 F 05/14/24 20:55 Pulse Rate 110 H 05/14/24 20:55 Respiratory Rate 22 H 05/14/24 20:55 Blood Pressure 172/84 H 05/14/24 20:55 Pulse Oximetry 93 L 05/14/24 20:55 Oxygen Delivery Method Room Air 05/14/24 20:55 Temperature 97.9 F 05/14/24 20:55 Pulse Rate 89 05/14/24 21:42 Respiratory Rate 18 05/14/24 21:42 Blood Pressure 172/84 H 05/14/24 20:55 Pulse Oximetry 92 L 05/14/24 21:42 Oxygen Delivery Method Room Air 05/14/24 21:42 MDM - SOB/Dyspnea MDM Narrative Medical decision making narrative: patient well known to department. Presents complaining of shortness of breath. mild respiratory distress. RA pulse ox 92. RR 18. chest without wheeze but diminished breath sounds. treated with duoneb and afterwards is feeling better and states he is ready to go home. discharged and advised to follow up with his doctor Discharge Plan Discharge Stand Alone Forms: Portal Instructions Chief Complaint: Shortness of Breath/Dyspnea Clinical Impression: Asthma exacerbation in COPD Patient Disposition: Home, Self-Care Prescriptions / Home Meds: No Action albuterol sulfate 2.5 mg /3 mL (0.083 %) solution for nebulization 2.5 mg inhalation Q6H PRN (Reason: shortness of breath or wheezing) losartan 100 mg tablet 100 mg PO DAILY Qty: 30 11RF albuterol sulfate 90 mcg/actuation HFA aerosol inhaler 2 inh inhalation Q6H PRN (Reason: shortness of breath or wheezing) azithromycin [Zithromax Z-Luis] 250 mg tablet See Rx Instructions .ROUTE .COMPLEX Qty: 6 0RF Rx Instructions: For 250 mg dose pack: take 500 mg today (day 1), then 250 mg for 4 days (days 2-5) prednisone 20 mg tablet 40 mg PO DAILY 5 Days Qty: 10 0RF Print Language: Upper Sorbian Instructions: COPD (Chronic Obstructive Pulmonary Disease) (ED) Additional Instructions: follow up with your family doctor early next week for recheck Referrals: SERG DUENAS [Primary Care Provider] - 1 week
== END 2024-05-14 22:19 | disposition home or self-care (01) ==
PROVIDERS: Emergency Provider Internal Medicine
DX: J44.1 Chronic obstructive pulmonary disease with (acute) exacerbation (principal); F17.200 Nicotine dependence, unspecified, uncomplicated
CPT/HCPCS: 94640; 99283

== ENCOUNTER 2024-05-21 15:50 | Emergency (ER) | payer MEDICARE, SELFPAY ==
[2024-05-21 15:54] VITALS: BP 190/101; PULSE 83; TEMP 36.9; O2SAT 92; BMI 23.7
--- OUTSIDE RECORDS SUMMARY | 2024-05-21 15:58 | XMS_ITS | CCD ---
Author Organization [facility] Clini[facility] Care Team Providers Care [place] Knitter Name Role Phone REQUEST, DR NONE LISTED Primary Care Unavaila ble TIFFANY ., LEIA Admitting Unavailable TIFFANY ., LEIA Attending Unavailable CHINO ., NINA Consulting Unavailable HOME BEAULIEU Consulting Unavailable PAY ., DR MIDDLETON Attending Unavailable PAY ., DR MIDDLETON Consulting Unavailable PAY ., DR MIDDLETON Admitting Unavailable REQUEST, DR HINES LISTED Primary Care Unavaila ble MARKER ., [...] Facility (1 source) Penicillin Drug Allergy [facility] Repository Problems Active Problems Problem Classification Problem [...] Other residential (current) drug therapy; Translations: [OTH NURSING HOME [...] 0.0 103/ul Normal 0.0-0.1 [facility] Comment on above: Performed By: #### C BC ####[facility] Yxuwywnsgr[address] [place] [address]Dr. Garima Pulliam Basophils/100 WBC (Bld) 0.3 % Normal 0.2-2.0 [facility] Comment on above: Performed By: #### C BC ####[facility] Mlvthpvtfz3655 [place] [address]DrAdalberto Pulliam EO # 0.3 103/ul Normal 0.0-0.7 [facility] Comment on above: Performed By: #### C BC ####[facility] Tmaprcaysv[address] [place], [place] [address]Dr. Garima Pulliam Eosinophils/100 WBC (Bld) 2.8 % Normal 0.9-7.0 [facility] Comment on above: Performed By: #### C BC ####[facility] Arqyevbdnp5398 [place] [address]Dr. Garima Pulliam Erythrocyte distribution width (RBC) [Ratio] 13.4 % Normal 11.0-15.0 [facility] Comment on above: Performed By: #### C BC ####[facility] Bqtesjlqll67[address] [place] [address]Dr. Garima Pulliam Hematocrit (Bld) [Volume fraction] 45.7 % Normal 42.0-54.0 [facility] Comment on above: Performed By: #### C BC ####[facility] Gymhfkysas9824 [place] [address]Dr. Garima Pulliam Hemoglobin (Bld) [Mass/Vol] 15.2 g/dL Normal 14.0-18.0 [facility] Comment on above: Performed By: #### C BC ####[facility] Rgeqfkcxsh6490 [place] [address]Dr. Garima Pullima IG # 0.02 10e3/ul Normal 0.00-0.03 [facility] Comment on above: Performed By: #### C BC ####[facility] Abakiqakxi55[address] [place] [address]Dr. Garima Pulliam IG % 0.2 % Normal 0.0-0.5 [facility] Comment on above: Performed By: #### C BC ####[facility] Hdtruorooz13[address] [place] [address]Dr. Garima Pulliam LYMPH # 2.1 103/ul Normal 1.2-3.8 [facility] Comment on above: Performed By: #### C BC ####[facility] Jhkovwqyax0564 [place] [address]Dr. Garima Pulliam Lymphocytes/100 WBC (Bld) 23.7 % Normal 20.5-60.0 [facility] Comment on above: Performed By: #### C BC ####[facility] Tmcxgzcxkp0505 [place] [address]Dr. Garima Heraclio MANUAL DIFF REQ NO Normal [facility] Comment on above: Performed By: #### C BC ####[facility] Taqnvegqbi7481 [place] [address]Dr. Garima Pulliam MCH (RBC) [Entitic mass] 30.4 pg Normal 25.9-34.0 [facility] Comment on above: Performed By: #### C BC ####[facility] Rkoymozaqg4811 [place] [address]Dr. Garima Heraclio MCHC (RBC) [Mass/Vol] 33.3 g/dL Normal 29.9-35.2 [facility] Comment on above: Performed By: #### C BC ####[facility] Gzvllwduer[address] [place], [place] [address]Dr. Chapisrenu Pulliam MCV (RBC) [Entitic vol] 91.4 fL Normal 80.0-94.0 [facility] Comment on above: Performed By: #### C BC ####[facility] Xthnqsayat[address] [place], [place] [address]Dr. Garima Heraclio MONO # 0.7 103/ul Normal 0.3-0.8 [facility] Comment on above: Performed By: #### C BC ####[facility] Ucruojyjsv7[address] [place], [place] [address]Dr. Chapisrenu Pulliam Monocytes/100 WBC (Bld) 8.3 % Normal 1.7-12.0 [facility] Comment on above: Performed By: #### C BC ####[facility] Xnstuinubo9212 [place] [address]Dr. Chapisrenu Heraclio NEUT # 5.8 103/ul Normal 1.4-6.5 [facility] Comment on above: Performed By: #### C BC ####[facility] Xehzgikjhf54[address] [place], [place] [address]Dr. Garima Pulliam Neutrophils/100 WBC (Bld) 64.7 % Normal 43.0-75.0 [facility] Comment on above: Performed By: #### C BC ####[facility] Vdcufklxcl3196 [place] [address]Dr. Garima Pulliam Platelet mean volume (Bld) [Entitic vol] 8.6 fL Critically low 9.5-13.5 [facility] Comment on above: Performed By: #### C BC ####[facility] Unbywwopfw9323 [place] [address]Dr. Garima Pulliam PLT 230 103/ul Normal 150-450 [facility] Comment on above: Performed By: #### C BC ####[facility] Bjqcubrjmp0665 [place] [address]Dr. Chapisrenu Heraclio RBC 5.00 106/ul Normal 4.70-6.10 [facility] Comment on above: Performed By: #### C BC ####[facility] Ppvgsjfxpu9945 [place] [address]Dr. Garima Heraclio WBC 9.0 103/ul Normal 4.0-11.0 [facility] Comment on above: Performed By: #### C BC ####[facility] Pkghtuhpre[address] [place] [address]Dr. Garima Pulliam MAGNESIUMon 04-04-2023 Magnesium [Mass/Vol] 1.8 mg/dL Normal 1.8-2.4 [facility] Comment on above: Performed By: #### M G ####[facility] Pcaaqwfjtc9993 [place] [address]Dr. Chapisrenu Pulliam PROF 14(COMP METB)on 023 Albumin [Mass/Vol] 3.8 g/dL Normal 3.4-5.0 [facility] Comment on above: Performed By: #### C MP ####[facility] Amqinpytfz0980 [place] [address]Dr. Garima Pulliam Albumin/Globulin [Mass ratio] 1.2 {ratio} Normal [facility] Comment on above: Performed By: #### C MP ####[facility] Ugrkviekiz8935 [place] [address]Dr. Garima Heraclio ALP [Catalytic activity/Vol] 84 U/L Normal 46-116 [facility] Comment on above: Performed By: #### C MP ####[facility] Cvheybwxji9238 [place] [id number]. Garima Pulliam ALT [Catalytic activity/Vol] 31 U/L Normal 16-63 [facility] Comment on above: Performed By: #### C MP ####[facility] Lbptzjvqxz7913 [place] [address]Dr. Garima Pulliam Anion gap [Moles/Vol] 12.2 mmol/L Normal [facility] Comment on above: Performed By: #### C MP ####[facility] Uumddcsson4131 [place] [address]Dr. Garima Pulliam AST [Catalytic activity/Vol] 23 U/L Normal 15-37 [facility] Comment on above: Performed By: #### C MP ####[facility] Iicovstevw[address] [place], [place] [address]Dr. Garima Pulliam Bilirubin [Mass/Vol] 0.5 mg/dL Normal 0.2-1.0 [facility] Comment on above: Performed By: #### C MP ####[facility] Vhiovunoma[address] [place], [place] [address]Dr. Garima Pulliam Calcium [Mass/Vol] 9.2 mg/dL Normal 8.5-10.1 [facility] Comment on above: Performed By: #### C MP ####[facility] Pjyijrejwj0[address] [place], [place] [address]Dr. Garima Pulliam Chloride [Moles/Vol] 103 mmol/L Normal 98-107 [facility] Comment on above: Performed By: #### C MP ####[facility] Ujxkeotxds8391 [place] [address]Dr. Garima Pulliam CO2 [Moles/Vol] 28.5 mmol/L Normal 21.0-32.0 [facility] Comment on above: Performed By: #### C MP ####[facility] Lzvyppchqw57[address] [place], [place] [address]Dr. Garima Pulliam Creatinine [Mass/Vol] 0.74 mg/dL Normal 0.70-1.30 [facility] Comment on above: Performed By: #### C MP ####[facility] Daqfjuovfd4736 [place] [id number]. Garima Pulliam EGFR-AF EQUATORIAL GUINEAN >60 Normal >=60 [facility] Comment on above: Performed By: #### C MP ####[facility] Jhbldkcjrr4266 [place] [address]Dr. Garima Heraclio EGFR-NON AF EQUATORIAL GUINEAN >60 Normal >=60 [facility] Comment on above: Performed By: #### C MP ####[facility] Rzdrhzspjk6672 [place] [id number]. Garima Heraclio Globulin (S) [Mass/Vol] 3.1 g/dL Normal [facility] Comment on above: Performed By: #### C MP ####[facility] Nmvwgnoghg9260[address] [place], [place] [address]Dr. Garima Heraclio Glucose [Mass/Vol] 93 mg/dL Normal 74-106 [facility] Comment on above: Performed By: #### C MP ####[facility] Pxtmijpmry[address] [place], [place] [address]Dr. Garima Heraclio Potassium [Moles/Vol] 3.7 mmol/L Normal 3.5-5.1 [facility] Comment on above: Performed By: #### C MP ####[facility] Wdclhkvtha[address] [place], [place] [address]Dr. Garima Heraclio Protein [Mass/Vol] 6.9 g/dL Normal 6.4-8.2 [facility] Comment on above: Performed By: #### C MP ####[facility] Usljyawukk[address] [place], [place] [address]Dr. Garima Heraclio Sodium [Moles/Vol] 140 mmol/L Normal 136-145 [facility] Comment on above: Performed By: #### C MP ####[facility] Oxxwuzybtg50[address] [place], [place] [address]Dr. Garima Pulliam Urea nitrogen [Mass/Vol] 8.0 mg/dL Normal 7.0-18.0 [facility] Comment on above: Performed By: #### C MP ####[facility] Phktbiynaw9218[address] [place], [place] [address]Dr. Garima Pulliam Urea nitrogen/Creatinine [Mass ratio] 10.8 mg/mg Normal [facility] Comment on above: Performed By: #### C DAVID ####[facility] Tmumjetbax7639 [place] [address]Dr. Garima Pulliam AMMONIAon 03-30-2023 Ammonia (P) [Moles/Vol] 11 umol/L Normal 11-32 [facility] Comment on above: Performed By: #### A MM ####[facility] Rewfanbpye[address] [place], [place] [address]Dr. Garima Pulliam CARDIAC NASH ADMITon 023 CK [Catalytic activity/Vol] 232 U/L Normal 39-308 [facility] Comment on above: Performed By: #### C NANCY HERNANDEZ ####[facility] Nusgswqlxo6173 [place] [address]Dr. Chapisrenu Pulliam CK.MB [Mass/Vol] 4.83 ng/mL Critically high <=3.60 [facility] Comment on above: Performed By: #### C NANCY HERNANDEZ ####[facility] Wvwomgxvtz[address] [place], [place] [address]Dr. Garima Pulliam HSTROP 10.5 pg/mL Normal 4.0-76.1 [facility] Comment on above: Result Comment: CUT- OFF POINTS HAVE BEEN ESTABLISHED BASED ON THE FOURTH UNIVERSAL DEFINITIONS OF MYOCARDIALINFARCTION. THE UPPER REFERENCE LIMIT (URL) OF TROPONIN, DEFINED THE 99TH PERCENTILE OFcTnI DISTRIBUTION IN A REFERENCE POPULATION, HAS BEEN CONFIRMED THE DECISION THRESHOLDFOR [place] DIAGNOSIS. Performed By: #### C NANCY HERNANDEZ ####[facility] Yaectjzuar75[address] [place], [place] [address]Dr. Garima Heraclio DORIS 79 ng/mL Normal 16-96 [facility] Comment on above: Performed By: #### C NANCY HERNANDEZ ####[facility] Rmgcsporag4[address] [place], [place] [address]Dr. Garima Heraclio CBC AUTO DIFFon 03-30-2023 BASO # 0.0 103/ul Normal 0.0-0.1 [facility] Comment on above: Performed By: #### C BC ####[facility] Ldxjcbmknu4409 [place] [id number]. Garima Pulliam Basophils/100 WBC (Bld) 0.1 % Critically low 0.2-2.0 [facility] Comment on above: Performed By: #### C BC ####[facility] Dzrelgifpk1304 [place] [id number]. Garima Pulliam EO # 0.3 103/ul Normal 0.0-0.7 [facility] Comment on above: Performed By: #### C BC ####[facility] Wwticmumen[address] [place], [place] [address]Dr. Garima Pulliam Eosinophils/100 WBC (Bld) 3.3 % Normal 0.9-7.0 [facility] Comment on above: Performed By: #### C BC ####[facility] Okfhshwdgp0[address] [place], [place] [address]Dr. Garima Pulliam Erythrocyte distribution width (RBC) [Ratio] 13.5 % Normal 11.0-15.0 [facility] Comment on above: Performed By: #### C BC ####[facility] Ntjtgpdykx[address] [place], [place] [address]Dr. Garima Pulliam Hematocrit (Bld) [Volume fraction] 42.9 % Normal 42.0-54.0 [facility] Comment on above: Performed By: #### C BC ####[facility] Tchyhkugnq[address] [place], [place] [address]Dr. Garima Pulliam Hemoglobin (Bld) [Mass/Vol] 13.9 g/dL Critically low 14.0-18.0 [facility] Comment on above: Performed By: #### C BC ####[facility] Bbqkuzlioi3755 [place] [id number]. Garima Pulliam IG # 0.01 10e3/ul Normal 0.00-0.03 [facility] Comment on above: Performed By: #### C BC ####[facility] Aqbtwwmlyc[address] [place], [place] [address]Dr. Garima Pulliam IG % 0.1 % Normal 0.0-0.5 [facility] Comment on above: Performed By: #### C BC ####[facility] Psijajktbv6584 [place] [id number]. Garima Pulliam LYMPH # 1.7 103/ul Normal 1.2-3.8 [facility] Comment on above: Performed By: #### C BC ####[facility] Lacspurrpo6544 [place], [place] [address]Tg. Garima Pulliam Lymphocytes/100 WBC (Bld) 22.8 % Normal 20.5-60.0 [facility] Comment on above: Performed By: #### C BC ####[facility] Zmgvfnqdyz5419 [place] [id number]. Garima Heraclio MANUAL DIFF REQ NO Normal [facility] Comment on above: Performed By: #### C BC ####[facility] Kunkxgmnei4494 [place] [id number]. Garima Heraclio MCH (RBC) [Entitic mass] 30.5 pg Normal 25.9-34.0 [facility] Comment on above: Performed By: #### C BC ####[facility] Bocldqbwfs7539 [place] [address]Dr. Garima Pulliam MCHC (RBC) [Mass/Vol] 32.4 g/dL Normal 29.9-35.2 [facility] Comment on above: Performed By: #### C BC ####[facility] Pjduidjksl4980 [place] [address]Dr. Garima Heraclio MCV (RBC) [Entitic vol] 94.1 fL Critically high 80.0-94.0 [facility] Comment on above: Performed By: #### C BC ####[facility] Vsnxrjhucz2255 [place] [address]Dr. Garima Heraclio MONO # 0.7 103/ul Normal 0.3-0.8 [facility] Comment on above: Performed By: #### C BC ####[facility] Nmgbxqobks6513 [place] [address]Dr. Garima Heraclio Monocytes/100 WBC (Bld) 8.6 % Normal 1.7-12.0 [facility] Comment on above: Performed By: #### C BC ####[facility] Rleytjjout1501 [place] [address]Dr. Garima Pulliam NEUT # 4.9 103/ul Normal 1.4-6.5 [facility] Comment on above: Performed By: #### C BC ####[facility] Uxxstirncr2353 [place] [address]Dr. Garima Pulliam Neutrophils/100 WBC (Bld) 65.1 % Normal 43.0-75.0 [facility] Comment on above: Performed By: #### C BC ####[facility] Idxiaqmtzi9899 [place] [address]Dr. Garima Pulliam Platelet mean volume (Bld) [Entitic vol] 8.5 fL Critically low 9.5-13.5 [facility] Comment on above: Performed By: #### C BC ####[facility] Fbcrynfjum5445 [place] [id number]. Garima Pulliam PLT 219 103/ul Normal 150-450 [facility] Comment on above: Performed By: #### C BC ####[facility] Squhqrwjkf6695 [place] [address]Dr. Garima Pulliam RBC 4.56 106/ul Critically low 4.70-6.10 [facility] Comment on above: Performed By: #### C BC ####[facility] Mqtaujnsas2831 [place] [id number]. Garima Pulliam WBC 7.6 103/ul Normal 4.0-11.0 [facility] Comment on above: Performed By: #### C BC ####[facility] Xgwjpyuhln2017 [place] [id number]. Garima Pulliam LACTATE/LACTIC ACIDon 2022 Lactate [Moles/Vol] 1.2 mmol/L Normal 0.4-2.0 [facility] Comment on above: Performed By: #### L ACT ####[facility] Oxffeyysrc7723 [place] [id number]. Garima Pulliam MAGNESIUMon 03-30-2023 Magnesium [Mass/Vol] 1.8 mg/dL Normal 1.8-2.4 [facility] Comment on above: Performed By: #### M G ####[facility] Gbnflwvqes8134 [place] [address]Dr. Garima Pulliam PROF 14(COMP METB)on 023 Albumin [Mass/Vol] 3.5 g/dL Normal 3.4-5.0 [facility] Comment on above: Performed By: #### C DAVID, CMAANA ROSA ####[facility] Wplxrcmlbl7639 [place] [address]Dr. Garima Pulliam Albumin/Globulin [Mass ratio] 1.2 {ratio} Normal [facility] Comment on above: Performed By: #### C DAVID, CMAANA ROSA ####[facility] Fdtviowavg4487 [place] [address]Dr. Garima Pulliam ALP [Catalytic activity/Vol] 85 U/L Normal 46-116 [facility] Comment on above: Performed By: #### C DAVID, CMAANA ROSA ####[facility] Yjnkvlhrgy[address] [place], [place] [address]Dr. Garima Pulliam ALT [Catalytic activity/Vol] 29 U/L Normal 16-63 [facility] Comment on above: Performed By: #### C DAVID, CMAANA ROSA ####[facility] Qgdvabgdjw4744 [place] [address]Dr. Garima Pulliam Anion gap [Moles/Vol] 8.0 mmol/L Normal [facility] Comment on above: Performed By: #### C DAVID, CMAANA ROSA ####[facility] Pdbsltktkt7940 [place] [address]Dr. Garima Pulliam AST [Catalytic activity/Vol] 18 U/L Normal 15-37 [facility] Comment on above: Performed By: #### C DAVID, CMADM ####[facility] Fkcihasgjr4521 [place] [address]Dr. Garima Pulliam Bilirubin [Mass/Vol] 0.4 mg/dL Normal 0.2-1.0 [facility] Comment on above: Performed By: #### C DAVID, CMADM ####[facility] Tncpmdknsz5583 [place] [address]Dr. Garima Pulliam Calcium [Mass/Vol] 8.8 mg/dL Normal 8.5-10.1 [facility] Comment on above: Performed By: #### C DAVID, NANCY ####[facility] Csnotyknmz6502 [place] [address]Dr. Chapisrenu Pulliam Chloride [Moles/Vol] 108 mmol/L Critically high 98-107 [facility] Comment on above: Performed By: #### C DAVID, NANCY ####[facility] Iwpfpuuogp6904 [place] [address]Dr. Garima Pulliam CO2 [Moles/Vol] 29.6 mmol/L Normal 21.0-32.0 [facility] Comment on above: Performed By: #### C NANCY HERNANDEZ ####[facility] Ygpyukbuvc[address] [place], [place] [address]Dr. Garima Pulliam Creatinine [Mass/Vol] 0.77 mg/dL Normal 0.70-1.30 [facility] Comment on above: Performed By: #### C NANCY HERNANDEZ ####[facility] Ajeqkowyeq[address] [place], [place] [address]Dr. Garima Heraclio EGFR-AF EQUATORIAL GUINEAN >60 Normal >=60 [facility] Comment on above: Performed By: #### C NANCY HERNANDEZ ####[facility] Awugpjrlkp0[address] [place], [place] [address]Dr. Garima Heraclio EGFR-NON AF EQUATORIAL GUINEAN >60 Normal >=60 [facility] Comment on above: Performed By: #### C NANCY HERNANDEZ ####[facility] Ttfvjyflhw9386 [place] [address]Dr. Garima Pulliam Globulin (S) [Mass/Vol] 2.8 g/dL Normal [facility] Comment on above: Performed By: #### C NANCY HERNANDEZ ####[facility] Afntdqhkwk3025 [place] [address]Dr. Garima Pulliam Glucose [Mass/Vol] 207 mg/dL Critically high 74-106 [facility] Comment on above: Performed By: #### C NANCY HERNANDEZ ####[facility] Wucctfjcqb[address] [place], [place] [address]Dr. Garima Pulliam Potassium [Moles/Vol] 4.6 mmol/L Normal 3.5-5.1 [facility] Comment on above: Performed By: #### C DAVID, NANCY ####[facility] Zfqtkpnkux1636 [place] [address]Dr. Garima Pulliam Protein [Mass/Vol] 6.3 g/dL Critically low 6.4-8.2 [facility] Comment on above: Performed By: #### C DAVID, NANCY ####[facility] Mntjdpsqbr6884 [place] [address]Dr. Garima Pulliam Sodium [Moles/Vol] 141 mmol/L Normal 136-145 [facility] Comment on above: Performed By: #### C DAVID, NANCY ####[facility] Fmusqrkfvb3389 [place] [address]Dr. Garima Pulliam Urea nitrogen [Mass/Vol] 9.0 mg/dL Normal 7.0-18.0 [facility] Comment on above: Performed By: #### C DAVID, NANCY ####[facility] Sobfqpynou9648 [place] [address]Dr. Garima Pulliam Urea nitrogen/Creatinine [Mass ratio] 11.7 mg/mg Normal [facility] Comment on above: Performed By: #### C DAVID, NANCY ####[facility] Zshijqyvpd1525 [place] [address]Dr. Garima Pulliam XR CHEST 1 Von 03-30-2023 XR CHEST 1 V Normal [facility] BNPon 03-27-2023 Natriuretic peptide B (Bld) [Mass/Vol] 251.0 pg/mL Normal <=900.0 [facility] Comment on above: Performed By: #### C MP, BNP, LIPID ####[facility] Ahqqloweng2927 [place] [address]Dr. Garima Pulliam GLYCOHEMOGLOBIN A1Con 2022 ADA RECOMMENDATION SEE BELOW Normal [facility] Comment on above: Result Comment: ADA RECOMMENDED LIMIT 4.0 - 6.0 ADA THERAPEUTIC TARGET < 7.0 ACTION SUGGESTED > 7.0 Performed By: #### A 1C ####[facility] Gjpollsckp3869 [place] [address]Dr. Garima Pulliam Glucose [Mass/Vol] 180 mg/dL Normal [facility] Comment on above: Performed By: #### A 1C ####[facility] Uezugnbcfh[address] [place], [place] [address]Dr. Chapisrenu Pulliam HbA1c (Bld) [Mass fraction] 7.9 % Critically high 4.5-6.2 [facility] Comment on above: Performed By: #### A 1C ####[facility] Bitspvdbye11[address] [place], [place] [address]Dr. Garima Pulliam HEMOGRAM AND PLATELon 2022 Hematocrit (Bld) [Volume fraction] 45.7 % Normal 42.0-54.0 [facility] Comment on above: Performed By: #### H H ####[facility] Olrqqxgvqh6[address] [place], [place] [address]Dr. Garima Pulliam Hemoglobin (Bld) [Mass/Vol] 15.1 g/dL Normal 14.0-18.0 [facility] Comment on above: Performed By: #### H H ####[facility] Nvigcygwxh[address] [place], [place] [address]Dr. Garima Pulliam MCH (RBC) [Entitic mass] 30.0 pg Normal 25.9-34.0 [facility] Comment on above: Performed By: #### H H ####[facility] Psqqoxoaya[address] [place], [place] [address]Dr. Garima Pulliam MCHC (RBC) [Mass/Vol] 33.0 g/dL Normal 29.9-35.2 [facility] Comment on above: Performed By: #### H H ####[facility] Cfzbjydlax359[address] [place], [place] [address]Dr. Garima Pulliam MCV (RBC) [Entitic vol] 90.7 fL Normal 80.0-94.0 [facility] Comment on above: Performed By: #### H H ####[facility] Qxlynfyyxl5[address] [place], [place] [address]Dr. Garima Pulliam PLT 222 103/ul Normal 150-450 [facility] Comment on above: Performed By: #### H H ####[facility] Normoynqzg5015 [place] [id number]. Garima Pulliam RBC 5.04 106/ul Normal 4.70-6.10 [facility] Comment on above: Performed By: #### H H ####[facility] Jsllruqxhk7860 [place] [id number]. Garima Pulliam WBC 8.7 103/ul Normal 4.0-11.0 [facility] Comment on above: Performed By: #### H H ####[facility] Chovgktotf5187 [place] [id number]. Garima Pulliam LIPID PROFILEon 03-27-2023 CHOL-HDL RATIO NORM SEE BELOW Normal [facility] Comment on above: Result Comment: 3.3 - 4.4 LOW RISK 4.4 - 7.1 AVERAGE RISK 7.1 - 11.0 MODERATE RISK >11.0 HIGH RISK Performed By: #### C MP, BNP, LIPID ####[facility] Pgdcupasfx6002 [place] [address]Dr. Garima Pulliam Cholesterol [Mass/Vol] 113 mg/dL Normal <=200 [facility] Comment on above: Performed By: #### C MP, BNP, LIPID ####[facility] Ymmogsxfgi2483 [place] [address]Dr. Garima Pulliam Cholesterol in HDL [Mass/Vol] 51 mg/dL Normal 40-60 [facility] Comment on above: Performed By: #### C MP, BNP, LIPID ####[facility] Eygxsnfwls2511 [place] [address]Dr. Garima Pulliam Cholesterol in LDL [Mass/Vol] 49.8 mg/dL Normal [facility] Comment on above: Performed By: #### C MP, BNP, LIPID ####[facility] Tgxpgbinyw9105 [place] [address]Dr. Garima Pulliam Cholesterol.total/Cho lesterol in HDL [Mass ratio] 2.2 {ratio} Normal [facility] Comment on above: Performed By: #### C MP, BNP, LIPID ####[facility] Wtihurvocn2745 [place] [address]Dr. Garima Pulliam HDL NORMAL > or = 60 mg/dl - LOW CARDIOVASCULAR RISK <40 mg/dl - HIGH CARDIOVASCULAR RISK Normal [facility] [facility] Comment on above: Performed By: #### C MP, BNP, LIPID ####[facility] [address]lkwxxljqr[address] [place] [address]Dr. Garima Pulliam LDL CALC NORMAL SEE BELOW Normal [facility] Comment on above: Result Comment: <100 mg/dl OPTIMAL 100 - 129 mg/dl NEAR OR ABOVE OPTIMAL 130 - 159 mg/dl BORDERLINE HIGH 160 - 189 mg/dl HIGH >190 mg/dl VERY HIGH Performed By: #### C MP, BNP, LIPID ####[facility] Hyycoylert[address] [place] [address]Dr. Garima Pulliam Triglyceride [Mass/Vol] 61 mg/dL Normal <=150 [facility] Comment on above: Performed By: #### C MP, BNP, LIPID ####[facility] Qavrbrrhkj8[address] [place] [address]Dr. Garima Pulliam VLDL CALC 12.2 mg/dL Normal [facility] Comment on above: Performed By: #### C MP, BNP, LIPID ####[facility] Nxgblnpnao97[address] [place] [address]Dr. Garima Pulliam PROF 14(COMP METB)on 023 Albumin [Mass/Vol] 3.5 g/dL Normal 3.4-5.0 [facility] Comment on above: Performed By: #### C MP, BNP, LIPID ####[facility] Rahdkznrme[address] [place] [address]Dr. Garima Pulliam Albumin/Globulin [Mass ratio] 1.2 {ratio} Normal [facility] Comment on above: Performed By: #### C MP, BNP, LIPID ####[facility] Gvhntuzfik[address] [place] [address]Dr. Garima Pulliam ALP [Catalytic activity/Vol] 82 U/L Normal 46-116 [facility] Comment on above: Performed By: #### C MP, BNP, LIPID ####[facility] Xxjkorqkyb37[address] [place] [address]Dr. Garima Pulliam ALT [Catalytic activity/Vol] 33 U/L Normal 16-63 [facility] Comment on above: Performed By: #### C MP, BNP, LIPID ####[facility] Azkttbwfbm9[address] [place] [address]Dr. Garima Pulliam Anion gap [Moles/Vol] 9.9 mmol/L Normal [facility] Comment on above: Performed By: #### C MP, BNP, LIPID ####[facility] Cqcfwmbzls67[address] [place] [address]Dr. Garima Pulliam AST [Catalytic activity/Vol] 24 U/L Normal 15-37 [facility] Comment on above: Performed By: #### C MP, BNP, LIPID ####[facility] Ikqjlslsbc98[address] [place] [address]Dr. Garima Pulliam Bilirubin [Mass/Vol] 0.6 mg/dL Normal 0.2-1.0 [facility] Comment on above: Performed By: #### C MP, BNP, LIPID ####[facility] Vkuoaiapxw4[address] [place] [address]Dr. Garima Pulliam Calcium [Mass/Vol] 9.2 mg/dL Normal 8.5-10.1 [facility] Comment on above: Performed By: #### C MP, BNP, LIPID ####[facility] Egqhtcgyqp34[address] [place] [address]Dr. Garima Pulliam Chloride [Moles/Vol] 106 mmol/L Normal 98-107 [facility] Comment on above: Performed By: #### C MP, BNP, LIPID ####[facility] Awnpcrouzq5324 [place] [address]Dr. Garima Pulliam CO2 [Moles/Vol] 32.3 mmol/L Critically high 21.0-32.0 [facility] Comment on above: Performed By: #### C MP, BNP, LIPID ####[facility] Kkyupdegjt7634 [place] [address]Dr. Garima Pulliam Creatinine [Mass/Vol] 0.70 mg/dL Normal 0.70-1.30 [facility] Comment on above: Performed By: #### C MP, BNP, LIPID ####[facility] Adtwerqdee4637 [place] [id number]. Garima Pulliam EGFR-AF EQUATORIAL GUINEAN >60 Normal >=60 [facility] Comment on above: Performed By: #### C MP, BNP, LIPID ####[facility] Pjqhxllmbl1876 [place] [id number]. Garima Pulliam EGFR-NON AF EQUATORIAL GUINEAN >60 Normal >=60 [facility] Comment on above: Performed By: #### C MP, BNP, LIPID ####[facility] Jununjjwll0806 [place] [address]Dr. Garima Pulliam Globulin (S) [Mass/Vol] 2.9 g/dL Normal [facility] Comment on above: Performed By: #### C MP, BNP, LIPID ####[facility] Tdgrmmodjx13[address] [place] [address]Dr. Garima Pulliam Glucose [Mass/Vol] 111 mg/dL Critically high 74-106 [facility] Comment on above: Performed By: #### C MP, BNP, LIPID ####[facility] Gtgvkhzuxf7554 [place] [address]Dr. Garima Pulliam Potassium [Moles/Vol] 4.2 mmol/L Normal 3.5-5.1 [facility] Comment on above: Performed By: #### C MP, BNP, LIPID ####[facility] Cghotlyvpq0493 [place] [address]Dr. Garima Pulliam Protein [Mass/Vol] 6.4 g/dL Normal 6.4-8.2 [facility] Comment on above: Performed By: #### C MP, BNP, LIPID ####[facility] Ylsgnvdgtw0506 [place] [address]Dr. Garima Pulliam Sodium [Moles/Vol] 144 mmol/L Normal 136-145 [facility] Comment on above: Performed By: #### C MP, BNP, LIPID ####[facility] Fpgovdgxpx7384 [place] [address]Dr. Garima Pulliam Urea nitrogen [Mass/Vol] 7.0 mg/dL Normal 7.0-18.0 [facility] Comment on above: Performed By: #### C MP, BNP, LIPID ####[facility] Rwvtthmfsk[address] [place], [place] [address]Dr. Garima Pulliam Urea nitrogen/Creatinine [Mass ratio] 10.0 mg/mg Normal [facility] Comment on above: Performed By: #### C MP, BNP, LIPID ####[facility] Vuygmpwqeh85[address] [place], [place] [address]Dr. Garima Pulliam BNPon 03-22-2023 Natriuretic peptide B (Bld) [Mass/Vol] 103.0 pg/mL Normal <=900.0 [facility] Comment on above: Performed By: #### B LINING FOLDER, BMP ####[facility] [address]tjialrksh[address] [place], [place] [address]Dr. Garima Pulliam CBC AUTO DIFFon 03-22-2023 BASO # 0.0 103/ul Normal 0.0-0.1 [facility] Comment on above: Performed By: #### C BC ####[facility] Lawtnmbmlo78[address] [place], [place] [address]Dr. Garima Heraclio Basophils/100 WBC (Bld) 0.3 % Normal 0.2-2.0 [facility] Comment on above: Performed By: #### C BC ####[facility] Mzvgzpmgeq30[address] [place], [place] [address]Dr. Garima Pulliam EO # 0.2 103/ul Normal 0.0-0.7 [facility] Comment on above: Performed By: #### C BC ####[facility] Mqvcmlohhf9[address] [place], [place] [address]Dr. Garima Pulliam Eosinophils/100 WBC (Bld) 2.2 % Normal 0.9-7.0 [facility] Comment on above: Performed By: #### C BC ####[facility] Dupwjxjdhw025[address] [place], [place] [address]Dr. Garima Pulliam Erythrocyte distribution width (RBC) [Ratio] 13.2 % Normal 11.0-15.0 [facility] Comment on above: Performed By: #### C BC ####[facility] Smgcttirib9178 [place] [id number]. Garima Pulliam Hematocrit (Bld) [Volume fraction] 43.4 % Normal 42.0-54.0 [facility] Comment on above: Performed By: #### C BC ####[facility] Oabkurhsew11[address] [place] [address]Dr. Garima Heraclio Hemoglobin (Bld) [Mass/Vol] 14.3 g/dL Normal 14.0-18.0 [facility] Comment on above: Performed By: #### C BC ####[facility] Rvgwjlbxme0960 [place] [address]Dr. Garima Pulliam IG # 0.02 10e3/ul Normal 0.00-0.03 [facility] Comment on above: Performed By: #### C BC ####[facility] Msqnnfvfpo6645 [place] [address]Dr. Garima Pulliam IG % 0.3 % Normal 0.0-0.5 [facility] Comment on above: Performed By: #### C BC ####[facility] Dynwkljsvx1856 [place] [address]Dr. Chapisrenu Pulliam LYMPH # 2.0 103/ul Normal 1.2-3.8 [facility] Comment on above: Performed By: #### C BC ####[facility] Paqvjndpey1243 [place] [address]Dr. Chapisrenu Pulliam Lymphocytes/100 WBC (Bld) 24.8 % Normal 20.5-60.0 [facility] Comment on above: Performed By: #### C BC ####[facility] Yemulskpej7832 [place] [address]Dr. Chapisrneu Pulliam MANUAL DIFF REQ NO Normal [facility] Comment on above: Performed By: #### C BC ####[facility] Smyiikhlnd0[address] [place] [address]Dr. Garima Heraclio MCH (RBC) [Entitic mass] 30.0 pg Normal 25.9-34.0 [facility] Comment on above: Performed By: #### C BC ####[facility] Yhmfvrxghf[address] [place], [place] [address]Dr. Garima Pulliam MCHC (RBC) [Mass/Vol] 32.9 g/dL Normal 29.9-35.2 [facility] Comment on above: Performed By: #### C BC ####[facility] Kqyomjteqy8258 [place] [id number]. Garima Pulliam MCV (RBC) [Entitic vol] 91.0 fL Normal 80.0-94.0 [facility] Comment on above: Performed By: #### C BC ####[facility] Niyhcfibzo2849 [place] [id number]. Garima Heraclio MONO # 0.8 103/ul Normal 0.3-0.8 [facility] Comment on above: Performed By: #### C BC ####[facility] Zdwozbdxho4906 [place] [address]Dr. Chapisrenu Pulliam Monocytes/100 WBC (Bld) 9.7 % Normal 1.7-12.0 [facility] Comment on above: Performed By: #### C BC ####[facility] Ydmjksssia8199 [place] [address]Dr. Garima Pulliam NEUT # 4.9 103/ul Normal 1.4-6.5 [facility] Comment on above: Performed By: #### C BC ####[facility] Ebpdynkyzc0091 [place] [id number]. Garima Heraclio Neutrophils/100 WBC (Bld) 62.7 % Normal 43.0-75.0 [facility] Comment on above: Performed By: #### C BC ####[facility] Whfsdcpwhf6451 [place] [id number]. Garima Heraclio Platelet mean volume (Bld) [Entitic vol] 8.8 fL Critically low 9.5-13.5 [facility] Comment on above: Performed By: #### C BC ####[facility] Vsawmnifat9817 [place] [id number]. Garima Heraclio PLT 198 103/ul Normal 150-450 [facility] Comment on above: Performed By: #### C BC ####[facility] Krndiihplk9836 [place] [id number]. Garima Heraclio RBC 4.77 106/ul Normal 4.70-6.10 [facility] Comment on above: Performed By: #### C BC ####[facility] Ykcsenjwhw8400 [place] [id number]. Garima Heraclio WBC 7.9 103/ul Normal 4.0-11.0 [facility] Comment on above: Performed By: #### C BC ####[facility] Nfnahoxenr6396 [place] [id number]. Garima Heraclio D-DIMERon 03-22-2023 D-DIMER 0.85 mg/L FEU Critically high <=0.59 [facility] Comment on above: Performed By: #### D DIM ####[facility] Wxdjorfvcb6107 [place] [address]Dr. Garima Pulliam D-DIMER COMMENTS SEE BELOW Normal [facility] Comment on above: Result Comment: Incr eases [...] generalized hospitalization. Performed By: #### D DIM ####[facility] Zjvhowatul13[address] [place], [place] [address]Dr. Garima Pulliam PROF CHEM 8 (BAS METB)on Anion gap [Moles/Vol] 6.9 mmol/L Normal [facility] Comment on above: Performed By: #### B LINING FOLDER, BMP ####[facility] Okeeyqzekt9083 [place] [address]Dr. Garima Pulliam Calcium [Mass/Vol] 8.9 mg/dL Normal 8.5-10.1 [facility] Comment on above: Performed By: #### B LINING FOLDER, BMP ####[facility] Usejtpgaaj2712 [place] [address]Dr. Garima Pulliam Chloride [Moles/Vol] 101 mmol/L Normal 98-107 [facility] Comment on above: Performed By: #### B LINING FOLDER, BMP ####[facility] Zlhjbgueaq69[address] [place], [place] [address]Dr. Chapisrenu Heraclio CO2 [Moles/Vol] 30.7 mmol/L Normal 21.0-32.0 [facility] Comment on above: Performed By: #### B LINING FOLDER, BMP ####[facility] Lxchkmphea11[address] [place], [place] [address]Dr. Garima Pulliam Creatinine [Mass/Vol] 0.82 mg/dL Normal 0.70-1.30 [facility] Comment on above: Performed By: #### B LINING FOLDER, BMP ####[facility] Fnxguhedqu417[address] [place], [place] [address]Dr. Garima Pulliam EGFR-AF EQUATORIAL GUINEAN >60 Normal >=60 [facility] Comment on above: Performed By: #### B LINING FOLDER, BMP ####[facility] Pcmfhzhoic48[address] [place], [place] [address]Dr. Chapisrenu Heraclio EGFR-NON AF EQUATORIAL GUINEAN >60 Normal >=60 [facility] Comment on above: Performed By: #### B LINING FOLDER, BMP ####[facility] Cdbntwdpew8[address] [place], [place] [address]Dr. Garima Pulliam Glucose [Mass/Vol] 339 mg/dL Critically high 74-[address] [facility] Comment on above: Performed By: #### B LINING FOLDER, BMP ####[facility] Frzzlqivfp38[address] [place], [place] [address]Dr. Garima Pulliam Potassium [Moles/Vol] 3.6 mmol/L Normal 3.5-5.1 [facility] Comment on above: Performed By: #### B LINING FOLDER, BMP ####[facility] Zgilwjshyt039[address] [place], [place] [address]Dr. Garima Pulliam Sodium [Moles/Vol] 135 mmol/L Critically low 136-145 [facility] Comment on above: Performed By: #### B LINING FOLDER, BMP ####[facility] Bdctmpglik28[address] [place], [place] [address]Dr. Garima Pulliam Urea nitrogen [Mass/Vol] 11.0 mg/dL Normal 7.0-18.0 [facility] Comment on above: Performed By: #### B LINING FOLDER, BMP ####[facility] Ztghyubnnl450[address] [place], [place] [address]Dr. Garima Pulliam Urea nitrogen/Creatinine [Mass ratio] 13.4 mg/mg Normal [facility] Comment on above: Performed By: #### B LINING FOLDER, BMP ####[facility] Enlsmmpxuw[address] [place], [place] [address]Dr. Garima Pulliam US VERONICA DOP LEG BILon 023 US VERONICA DOP LEG BENOIT Normal [facility] BNPon 03-18-2023 Natriuretic peptide B (Bld) [Mass/Vol] 226.0 pg/mL Normal <=900.0 [facility] Comment on above: Performed By: #### B LINING FOLDER, BMP ####[facility] Xroslxtzcx80[address] [place], [place] [address]Dr. Garima Pulliam CBC AUTO DIFFon 03-18-2023 BASO # 0.0 103/ul Normal 0.0-0.1 [facility] Comment on above: Performed By: #### C BC ####[facility] Npcqlwhfoj[address] [place], [place] [address]Dr. Garima Heraclio Basophils/100 WBC (Bld) 0.2 % Normal 0.2-2.0 [facility] Comment on above: Performed By: #### C BC ####[facility] Nwwtlwcsdt49[address] [place], [place] [address]Dr. Garima Pulliam EO # 0.3 103/ul Normal 0.0-0.7 [facility] Comment on above: Performed By: #### C BC ####[facility] Smhdbzpito7664[address] [place], [place] [address]Dr. Garima Heraclio Eosinophils/100 WBC (Bld) 2.5 % Normal 0.9-7.0 [facility] Comment on above: Performed By: #### C BC ####[facility] Jeaneqacwm2947[address] [place], [place] [address]Dr. Garima Heraclio Erythrocyte distribution width (RBC) [Ratio] 13.2 % Normal 11.0-15.0 [facility] Comment on above: Performed By: #### C BC ####[facility] Wmcwsuoepx6656 [place] [address]DrAdalberto Pulliam Hematocrit (Bld) [Volume fraction] 45.8 % Normal 42.0-54.0 [facility] Comment on above: Performed By: #### C BC ####[facility] Rhoelbacmw7499 [place] [address]DrAdalberto Pulliam Hemoglobin (Bld) [Mass/Vol] 15.3 g/dL Normal 14.0-18.0 [facility] Comment on above: Performed By: #### C BC ####[facility] Jsepsdiuxc4[address] [place], [place] [address]DrAdalberto Pulliam IG # 0.02 10e3/ul Normal 0.00-0.03 [facility] Comment on above: Performed By: #### C BC ####[facility] Cxnllbybec[address] [place], [place] [address]DrAdalberto Pulliam IG % 0.2 % Normal 0.0-0.5 [facility] Comment on above: Performed By: #### C BC ####[facility] Znxsghdbjz10[address] [place], [place] [address]DrAdalberto Pulliam LYMPH # 1.8 103/ul Normal 1.2-3.8 [facility] Comment on above: Performed By: #### C BC ####[facility] Cweysxqiqy69[address] [place], [place] [address]DrAdalberto Pulliam Lymphocytes/100 WBC (Bld) 18.3 % Critically low 20.5-60.0 [facility] Comment on above: Performed By: #### C BC ####[facility] Fujqiakfpo25[address] [place], [place] [address]DrAdalberto Pulliam MANUAL DIFF REQ NO Normal [facility] Comment on above: Performed By: #### C BC ####[facility] Yydsldsxwl3802 [place] [address]DrAdalberto Pulliam MCH (RBC) [Entitic mass] 30.5 pg Normal 25.9-34.0 [facility] Comment on above: Performed By: #### C BC ####[facility] Hbnshigkpv4046 [place] [address]DrAdalberto Pulliam MCHC (RBC) [Mass/Vol] 33.4 g/dL Normal 29.9-35.2 [facility] Comment on above: Performed By: #### C BC ####[facility] Npjwghnxhd8814 [place] [address]DrAdalberto Pulliam MCV (RBC) [Entitic vol] 91.2 fL Normal 80.0-94.0 [facility] Comment on above: Performed By: #### C BC ####[facility] Nfyxuwnokb8[address] [place], [place] [address]DrAdalberto Pulliam MONO # 0.8 103/ul Normal 0.3-0.8 [facility] Comment on above: Performed By: #### C BC ####[facility] Nhwfuqhpnu4[address] [place], [place] [address]DrAdalberto Pulliam Monocytes/100 WBC (Bld) 7.6 % Normal 1.7-12.0 [facility] Comment on above: Performed By: #### C BC ####[facility] Htfnnklwnr90[address] [place], [place] [address]DrAdalberto Pulliam NEUT # 7.0 103/ul Critically high 1.4-6.5 [facility] Comment on above: Performed By: #### C BC ####[facility] Daqxseuqsr14[address] [place], [place] [address]DrAdalberto Pulliam Neutrophils/100 WBC (Bld) 71.2 % Normal 43.0-75.0 [facility] Comment on above: Performed By: #### C BC ####[facility] Fkbqofgovq[address] [place], [place] [address]DrAdalberto Pulliam Platelet mean volume (Bld) [Entitic vol] 8.9 fL Critically low 9.5-13.5 [facility] Comment on above: Performed By: #### C BC ####[facility] Brnrtxexxx34[address] [place], [place] [address]DrAdalberto Pulliam PLT 217 103/ul Normal 150-450 [facility] Comment on above: Performed By: #### C BC ####[facility] Eefrbmmtsc7013 [place] [address]Dr. Garima Heraclio RBC 5.02 106/ul Normal 4.70-6.10 [facility] Comment on above: Performed By: #### C BC ####[facility] Cojqyfkfla54[address] [place], [place] [address]Dr. Garima Pulliam WBC 9.8 103/ul Normal 4.0-11.0 [facility] Comment on above: Performed By: #### C BC ####[facility] Rmqkpsbthe7[address] [place], [place] [address]Dr. Garima Heraclio CRPon 03-18-2023 CRP 0.1 mg/dL Normal <=1.0 [facility] Comment on above: Performed By: #### C RP ####[facility] Jkjuxclqth0064[address] [place], [place] [address]Dr. Garima Heraclio PROF CHEM 8 (BAS METB)on Anion gap [Moles/Vol] 10.4 mmol/L Normal [facility] Comment on above: Performed By: #### B LINING FOLDER, BMP ####[facility] Emgvghruqq[address] [place], [place] [address]Dr. Garima Heraclio Calcium [Mass/Vol] 8.8 mg/dL Normal 8.5-10.1 [facility] Comment on above: Performed By: #### B LINING FOLDER, BMP ####[facility] Cqtzwwzgox[address] [place], [place] [address]Dr. Garima Heraclio Chloride [Moles/Vol] 97 mmol/L Critically low 98-107 [facility] Comment on above: Performed By: #### B LINING FOLDER, BMP ####[facility] Yceqggzxbq94[address] [place], [place] [address]Dr. Garima Pulliam CO2 [Moles/Vol] 31.2 mmol/L Normal 21.0-32.0 [facility] Comment on above: Performed By: #### B LINING FOLDER, BMP ####[facility] Boyhirhomx786[address] [place], [place] [address]Dr. Garima Pulliam Creatinine [Mass/Vol] 0.91 mg/dL Normal 0.70-1.30 [facility] Comment on above: Performed By: #### B LINING FOLDER, BMP ####[facility] Giutienqpi260[address] [place] [address]Dr. Garima Pulliam EGFR-AF EQUATORIAL GUINEAN >60 Normal >=60 [facility] Comment on above: Performed By: #### B LINING FOLDER, BMP ####[facility] Ysvafnczmm9795 [place] [id number]. Garima Pulliam EGFR-NON AF EQUATORIAL GUINEAN >60 Normal >=60 [facility] Comment on above: Performed By: #### B LINING FOLDER, BMP ####[facility] Gndnczsloz8187 [place] [address]Dr. Garima Pulliam Glucose [Mass/Vol] 315 mg/dL Critically high 74-[address] [facility] Comment on above: Performed By: #### B LINING FOLDER, BMP ####[facility] Tivpfrkvhz2154 [place] [address]Dr. Garima Pulliam Potassium [Moles/Vol] 3.6 mmol/L Normal 3.5-5.1 [facility] Comment on above: Performed By: #### B LINING FOLDER, BMP ####[facility] Zvozjvclss3738 [place] [address]Dr. Garima Pulliam Sodium [Moles/Vol] 135 mmol/L Critically low 136-145 Th [facility] Comment on above: Performed By: #### B LINING FOLDER, BMP ####[facility] Imqxtcwwuo2980 [place] [address]Dr. Garima Pulliam Urea nitrogen [Mass/Vol] 7.0 mg/dL Normal 7.0-18.0 [facility] Comment on above: Performed By: #### B LINING FOLDER, BMP ####[facility] Petxrieoqm2852 [place] [address]Dr. Garima Pulliam Urea nitrogen/Creatinine [Mass ratio] 7.7 mg/mg Normal [facility] Comment on above: Performed By: #### B LINING FOLDER, BMP ####[facility] Qrcsyynnhh9789 [place] [address]Dr. Garima Pulliam SED RATE WESTERGRENon 2022 SED RATE 8 mm/hr Normal <=20 [facility] Comment on above: Performed By: #### S EDR ####[facility] Ozdlrfxkzl[address] [place], [place] [address]Dr. Garima Pulliam BNPon 03-16-2023 Natriuretic peptide B (Bld) [Mass/Vol] 241.0 pg/mL Normal <=900.0 [facility] Comment on above: Performed By: #### B LINING FOLDER, BMP, HSTROPN ####[facility] Mpfqnakaak4[address] [place], [place] [address]Dr. Garima Heraclio CBC AUTO DIFFon 03-16-2023 BASO # 0.0 103/ul Normal 0.0-0.1 [facility] Comment on above: Performed By: #### C BC ####[facility] Fiitfgpscw39[address] [place], [place] [address]Dr. Chapisrenu Pulliam Basophils/100 WBC (Bld) 0.2 % Normal 0.2-2.0 [facility] Comment on above: Performed By: #### C BC ####[facility] Y[address]qfbotzp[address] [place], [place] [address]Dr. Garima Pulliam EO # 0.2 103/ul Normal 0.0-0.7 [facility] Comment on above: Performed By: #### C BC ####[facility] Whtfbkhbwe[address] [place], [place] [address]Dr. Chapisrenu Pulliam Eosinophils/100 WBC (Bld) 2.7 % Normal 0.9-7.0 [facility] Comment on above: Performed By: #### C BC ####[facility] Dphcstwnpr[address] [place], [place] [address]Dr. Garima Pulliam Erythrocyte distribution width (RBC) [Ratio] 13.1 % Normal 11.0-15.0 [facility] Comment on above: Performed By: #### C BC ####[facility] Ikpfaccbfh[address] [place], [place] [address]Dr. Garima Pulliam Hematocrit (Bld) [Volume fraction] 41.8 % Critically low 42.0-54.0 [facility] Comment on above: Performed By: #### C BC ####[facility] Cwownrmlse24[address] [place] [address]Dr. Garima Pulliam Hemoglobin (Bld) [Mass/Vol] 14.0 g/dL Normal 14.0-18.0 [facility] Comment on above: Performed By: #### C BC ####[facility] Cpbfjniwou7605 [place] [address]Dr. Garima Pulliam IG # 0.03 10e3/ul Normal 0.00-0.03 [facility] Comment on above: Performed By: #### C BC ####[facility] Itvpzpigwt4870 [place] [address]Dr. Garima Pulliam IG % 0.3 % Normal 0.0-0.5 [facility] Comment on above: Performed By: #### C BC ####[facility] Zkscnbjhhq[address] [place], [place] [address]Dr. Chapisrenu Pulliam LYMPH # 2.1 103/ul Normal 1.2-3.8 [facility] Comment on above: Performed By: #### C BC ####[facility] Pnjxmrmhje[address] [place], [place] [address]Dr. Chapisrenu Pulliam Lymphocytes/100 WBC (Bld) 24.2 % Normal 20.5-60.0 [facility] Comment on above: Performed By: #### C BC ####[facility] Mcmaeiglem63[address] [place] [address]Dr. Garima Pulliam MANUAL DIFF REQ NO Normal [facility] Comment on above: Performed By: #### C BC ####[facility] Mryelvlxaw3005 [place] [address]Dr. Garima Pulliam MCH (RBC) [Entitic mass] 30.2 pg Normal 25.9-34.0 [facility] Comment on above: Performed By: #### C BC ####[facility] Cegyputpis7357 [place] [address]Dr. Garima Pulliam MCHC (RBC) [Mass/Vol] 33.5 g/dL Normal 29.9-35.2 The [facility] Comment on above: Performed By: #### C BC ####[facility] Dfxvntsxdh15[address] [place] [id number]. Garima Pulliam MCV (RBC) [Entitic vol] 90.1 fL Normal 80.0-94.0 [facility] Comment on above: Performed By: #### C BC ####[facility] Gtghvufakt77[address] [place] [id number]. Garima Pulliam MONO # 0.6 103/ul Normal 0.3-0.8 [facility] Comment on above: Performed By: #### C BC ####[facility] Hfeeemlzlt23[address] [place] [address]Dr. Garima Heraclio Monocytes/100 WBC (Bld) 7.4 % Normal 1.7-12.0 [facility] Comment on above: Performed By: #### C BC ####[facility] Glaglizrnd[address] [place], [place] [address]Dr. Garima Pulliam NEUT # 5.6 103/ul Normal 1.4-6.5 [facility] Comment on above: Performed By: #### C BC ####[facility] Xvlmpigexh[address] [place], [place] [address]Dr. Garima Heraclio Neutrophils/100 WBC (Bld) 65.2 % Normal 43.0-75.0 [facility] Comment on above: Performed By: #### C BC ####[facility] Juztfhqgax68[address] [place] [id number]. Garima Heraclio Platelet mean volume (Bld) [Entitic vol] 8.7 fL Critically low 9.5-13.5 [facility] Comment on above: Performed By: #### C BC ####[facility] X[address]ccpgnlc[address] [place], [place] [id number]. Garima Heraclio PLT 195 103/ul Normal 150-450 [facility] Comment on above: Performed By: #### C BC ####[facility] Bxxzjkjyva16[address] [place] [id number]. Garima Pulliam RBC 4.64 106/ul Critically low 4.70-6.10 The [facility] Comment on above: Performed By: #### C BC ####[facility] Skqwuxermm2[address] [place] [address]Dr. Garima Pulliam WBC 8.6 103/ul Normal 4.0-11.0 [facility] Comment on above: Performed By: #### C BC ####[facility] Bcmrqlkfqb4[address] [place] [address]Dr. Garima Pulliam PROF CHEM 8 (BAS METB)on Anion gap [Moles/Vol] 6.7 mmol/L Normal [facility] Comment on above: Performed By: #### B LINING FOLDER, BMP, HSTROPN ####[facility] Paeplicjkg94[address] [place] [address]Dr. Garima Pulliam Calcium [Mass/Vol] 8.8 mg/dL Normal 8.5-10.1 [facility] Comment on above: Performed By: #### B LINING FOLDER, BMP, HSTROPN ####[facility] Psktrwhqha54[address] [place], [place] [address]Dr. Garima Pulliam Chloride [Moles/Vol] 106 mmol/L Normal 98-107 [facility] Comment on above: Performed By: #### B LINING FOLDER, BMP, HSTROPN ####[facility] Ocubvawltt[address] [place], [place] [address]Dr. Garima Pulliam CO2 [Moles/Vol] 31.4 mmol/L Normal 21.0-32.0 [facility] Comment on above: Performed By: #### B LINING FOLDER, BMP, HSTROPN ####[facility] Xdborugrat[address] [place], [place] [address]Dr. Garima Pulliam Creatinine [Mass/Vol] 0.75 mg/dL Normal 0.70-1.30 [facility] Comment on above: Performed By: #### B LINING FOLDER, BMP, HSTROPN ####[facility] Qsmoyhotov[address] [place] [address]Dr. Garima Pulliam EGFR-AF EQUATORIAL GUINEAN >60 Normal >=60 [facility] Comment on above: Performed By: #### B LINING FOLDER, BMP, HSTROPN ####[facility] Vdgeilxvsj69[address] [place] [address]Dr. Garima Pulliam EGFR-NON AF EQUATORIAL GUINEAN >60 Normal >=60 [facility] Comment on above: Performed By: #### B LINING FOLDER, BMP, HSTROPN ####[facility] Voqrugherd97[address] [place] [address]Dr. Garima Pulliam Glucose [Mass/Vol] 161 mg/dL Critically high 74-[address] [facility] Comment on above: Performed By: #### B LINING FOLDER, BMP, HSTROPN ####[facility] Gxxjfcrcsq4308 [place] [address]Dr. Garima Pulliam Potassium [Moles/Vol] 4.1 mmol/L Normal 3.5-5.1 [facility] Comment on above: Performed By: #### B LINING FOLDER, BMP, HSTROPN ####[facility] Ngzhwlpauj23[address] [place] [address]Dr. Garima Pulliam Sodium [Moles/Vol] 140 mmol/L Normal 136-145 [facility] Comment on above: Performed By: #### B LINING FOLDER, BMP, HSTROPN ####[facility] Uplmtmuycx9[address] [place] [address]Dr. Garima Pulliam Urea nitrogen [Mass/Vol] 7.0 mg/dL Normal 7.0-18.0 [facility] Comment on above: Performed By: #### B LINING FOLDER, BMP, HSTROPN ####[facility] Qhnsfmsysz9131 [place] [address]Dr. Garima Pulliam Urea nitrogen/Creatinine [Mass ratio] 9.3 mg/mg Normal [facility] Comment on above: Performed By: #### B LINING FOLDER, BMP, HSTROPN ####[facility] Imxagkqhwc9[address] [place] [address]Dr. Garima Pulliam TROPONIN, HIGH SENSITIVITYon 03-16-2023 HSTROP 9.7 pg/mL Normal 4.0-76.1 [facility] Comment on above: Result Comment: CUT- OFF POINTS HAVE BEEN ESTABLISHED BASED ON THE FOURTH UNIVERSAL DEFINITIONS OF MYOCARDIALINFARCTION. THE UPPER REFERENCE LIMIT (URL) OF TROPONIN, DEFINED THE 99TH PERCENTILE OFcTnI DISTRIBUTION IN A REFERENCE POPULATION, HAS BEEN CONFIRMED THE DECISION THRESHOLDFOR [place] DIAGNOSIS. Performed By: #### B LINING FOLDER, BMP, HSTROPN ####[facility] Oqivbdpwyk[address] [place] [address]Dr. Garima Pulliam XR CHEST 1 Von 03-16-2023 XR CHEST 1 V Normal [facility] BNPon 03-06-2023 Natriuretic peptide B (Bld) [Mass/Vol] 111.0 pg/mL Normal <=900.0 [facility] Comment on above: Performed By: #### C MP, BNP, CK ####[facility] Gzbamteyux5[address] [place] [address]Dr. Chapisrenu Pulliam CBC AUTO DIFFon 03-06-2023 BASO # 0.0 103/ul Normal 0.0-0.1 [facility] Comment on above: Performed By: #### C BC ####[facility] Ngyxtlixls[address] [place], [place] [address]Dr. Garima Pulliam Basophils/100 WBC (Bld) 0.2 % Normal 0.2-2.0 [facility] Comment on above: Performed By: #### C BC ####[facility] Bshamaxywo[address] [place], [place] [address]Dr. Garima Pulliam EO # 0.3 103/ul Normal 0.0-0.7 [facility] Comment on above: Performed By: #### C BC ####[facility] Hjwzzibflo[address] [place], [place] [address]Dr. Garima Pulliam Eosinophils/100 WBC (Bld) 3.5 % Normal 0.9-7.0 [facility] Comment on above: Performed By: #### C BC ####[facility] Bqjsfdfwat9368[address] [place], [place] [address]Dr. Garima Pulliam Erythrocyte distribution width (RBC) [Ratio] 13.3 % Normal 11.0-15.0 [facility] Comment on above: Performed By: #### C BC ####[facility] Uysjxojfph5[address] [place], [place] [address]Dr. Gariam Pulliam Hematocrit (Bld) [Volume fraction] 43.7 % Normal 42.0-54.0 [facility] Comment on above: Performed By: #### C BC ####[facility] Pjvjwwztff[address] [place] [address]Dr. Garima Pulliam Hemoglobin (Bld) [Mass/Vol] 14.7 g/dL Normal 14.0-18.0 [facility] Comment on above: Performed By: #### C BC ####[facility] Azpaeonkbe3[address] [place] [address]Dr. Chapisrenu Heraclio IG # 0.03 10e3/ul Normal 0.00-0.03 [facility] Comment on above: Performed By: #### C BC ####[facility] Dvufulbdia7[address] [place], [place] [address]Dr. Garima Pulliam IG % 0.4 % Normal 0.0-0.5 [facility] Comment on above: Performed By: #### C BC ####[facility] Lrpxhajkpn7[address] [place], [place] [address]Dr. Garima Pulliam LYMPH # 2.0 103/ul Normal 1.2-3.8 [facility] Comment on above: Performed By: #### C BC ####[facility] Kkvqjrcvvb[address] [place], [place] [address]DrAdalberto Pulliam Lymphocytes/100 WBC (Bld) 23.7 % Normal 20.5-60.0 [facility] Comment on above: Performed By: #### C BC ####[facility] Cyofmaguee[address] [place] [address]Dr. Garima Pulliam MANUAL DIFF REQ NO Normal [facility] Comment on above: Performed By: #### C BC ####[facility] Yyqangsqcx1200 [place] [id number] Pulliam MCH (RBC) [Entitic mass] 30.1 pg Normal 25.9-34.0 [facility] Comment on above: Performed By: #### C BC ####[facility] Bwwqiybuwh6770 [place] [id number]. Garima Pulliam MCHC (RBC) [Mass/Vol] 33.6 g/dL Normal 29.9-35.2 [facility] Comment on above: Performed By: #### C BC ####[facility] Kkrhmddmhj84[address] [place] [address]Dr. Garima Heraclio MCV (RBC) [Entitic vol] 89.4 fL Normal 80.0-94.0 [facility] Comment on above: Performed By: #### C BC ####[facility] Hawicnqovc67[address] [place] [address]Dr. Garima Pulliam MONO # 0.8 103/ul Normal 0.3-0.8 [facility] Comment on above: Performed By: #### C BC ####[facility] Xqgbrzsiva88[address] [place] [address]Dr. Garima Pulliam Monocytes/100 WBC (Bld) 9.0 % Normal 1.7-12.0 [facility] Comment on above: Performed By: #### C BC ####[facility] Jaucueazea[address] [place], [place] [address]Dr. Garima Pulliam NEUT # 5.4 103/ul Normal 1.4-6.5 [facility] Comment on above: Performed By: #### C BC ####[facility] Dclyfvmegf[address] [place], [place] [address]Dr. Garima Pulliam Neutrophils/100 WBC (Bld) 63.2 % Normal 43.0-75.0 [facility] Comment on above: Performed By: #### C BC ####[facility] Qlmgwpmbun[address] [place], [place] [address]Dr. Garima Pulliam Platelet mean volume (Bld) [Entitic vol] 9.0 fL Critically low 9.5-13.5 [facility] Comment on above: Performed By: #### C BC ####[facility] Tlslikvddr[address] [place], [place] [address]Dr. Garima Pulliam PLT 218 103/ul Normal 150-450 [facility] Comment on above: Performed By: #### C BC ####[facility] Qsdfyhuyje4325 [place] [id number]. Garima Pulliam RBC 4.89 106/ul Normal 4.70-6.10 [facility] Comment on above: Performed By: #### C BC ####[facility] Jvvzwquzoj4192 [place] [address]Dr. Garima Pulliam WBC 8.5 103/ul Normal 4.0-11.0 [facility] Comment on above: Performed By: #### C BC ####[facility] Srebfbwttz1839 [place] [address]Dr. Garima Pulliam CPKon 03-06-2023 CK [Catalytic activity/Vol] 191 U/L Normal 39-308 [facility] Comment on above: Performed By: #### C MP, BNP, CK ####[facility] Snqxitrooo6230 [place] [address]Dr. Garima Pulliam PROF 14(COMP METB)on 023 Albumin [Mass/Vol] 3.6 g/dL Normal 3.4-5.0 [facility] Comment on above: Performed By: #### C MP, BNP, CK ####[facility] Gjlqycfbtr17[address] [place] [address]Dr. Garima Pulliam Albumin/Globulin [Mass ratio] 1.2 {ratio} Normal [facility] Comment on above: Performed By: #### C MP, BNP, CK ####[facility] Pfypwnsyce27[address] [place] [address]Dr. Garima Pulliam ALP [Catalytic activity/Vol] 91 U/L Normal 46-116 [facility] Comment on above: Performed By: #### C MP, BNP, CK ####[facility] Mrxebmwomf6396 [place] [address]Dr. Garima Pulliam ALT [Catalytic activity/Vol] 33 U/L Normal 16-63 [facility] Comment on above: Performed By: #### C MP, BNP, CK ####[facility] Lsxzkfcksn7390 [place] [address]Dr. Garima Pulliam Anion gap [Moles/Vol] 10.3 mmol/L Normal [facility] Comment on above: Performed By: #### C MP, BNP, CK ####[facility] Yjwiptidpa9713 [place] [address]Dr. Garima Pulliam AST [Catalytic activity/Vol] 17 U/L Normal 15-37 [facility] Comment on above: Performed By: #### C MP, BNP, CK ####[facility] Tewctwzfpz6739 [place] [address]Dr. Garima Pulliam Bilirubin [Mass/Vol] 0.4 mg/dL Normal 0.2-1.0 [facility] Comment on above: Performed By: #### C MP, BNP, CK ####[facility] Axflbqwtps7228 [place] [address]Dr. Garima Pulliam Calcium [Mass/Vol] 9.1 mg/dL Normal 8.5-10.1 [facility] Comment on above: Performed By: #### C MP, BNP, CK ####[facility] Bvmpwmhkdb7738 [place] [address]Dr. Garima Pulliam Chloride [Moles/Vol] 102 mmol/L Normal 98-107 [facility] Comment on above: Performed By: #### C MP, BNP, CK ####[facility] Dppnqzytae3433 [place] [address]Dr. Garima Pulliam CO2 [Moles/Vol] 29.7 mmol/L Normal 21.0-32.0 [facility] Comment on above: Performed By: #### C MP, BNP, CK ####[facility] Ihcjjpooji12[address] [place] [address]Dr. Garima Pulliam Creatinine [Mass/Vol] 0.79 mg/dL Normal 0.70-1.30 [facility] Comment on above: Performed By: #### C MP, BNP, CK ####[facility] Vqdptanqob4961 [place] [address]Dr. Garima Pulliam EGFR-AF EQUATORIAL GUINEAN >60 Normal >=60 [facility] Comment on above: Performed By: #### C MP, BNP, CK ####[facility] Ljoxnelvkn9344 [place] [address]Dr. Garima Pulliam EGFR-NON AF EQUATORIAL GUINEAN >60 Normal >=60 [facility] Comment on above: Performed By: #### C MP, BNP, CK ####[facility] Jshopoeprd0427 [place] [address]Dr. Garima Pulliam Globulin (S) [Mass/Vol] 3.0 g/dL Normal [facility] Comment on above: Performed By: #### C MP, BNP, CK ####[facility] Nljucpnxts6351 [place] [address]Dr. Garima Pulliam Glucose [Mass/Vol] 202 mg/dL Critically high 74-106 [facility] Comment on above: Performed By: #### C MP, BNP, CK ####[facility] Vizcdvkowj5774 [place] [address]Dr. Garima Pulliam Potassium [Moles/Vol] 4.0 mmol/L Normal 3.5-5.1 [facility] Comment on above: Performed By: #### C MP, BNP, CK ####[facility] Wtvauslcix4443 [place] [address]Dr. Garima Pulliam Protein [Mass/Vol] 6.6 g/dL Normal 6.4-8.2 [facility] Comment on above: Performed By: #### C MP, BNP, CK ####[facility] Fxrwowgbyk[address] [place], [place] [address]Dr. Garima Pulliam Sodium [Moles/Vol] 138 mmol/L Normal 136-145 [facility] Comment on above: Performed By: #### C MP, BNP, CK ####[facility] Bxcdrqqfws[address] [place], [place] [address]Dr. Garima Pulliam Urea nitrogen [Mass/Vol] 10.0 mg/dL Normal 7.0-18.0 [facility] Comment on above: Performed By: #### C MP, BNP, CK ####[facility] Iaeozfksdf1853 [place] [address]Dr. Garima Pulliam Urea nitrogen/Creatinine [Mass ratio] 12.7 mg/mg Normal [facility] Comment on above: Performed By: #### C MP, BNP, CK ####[facility] Czoespwupg1873 [place] [address]Dr. Garima Pulliam US VERONICA DOP LEG BILon 023 US VERONICA DOP LEG BENOIT Normal [facility] CBC AUTO DIFFon 01-13-2023 BASO # 0.0 103/ul Normal 0.0-0.1 [facility] Comment on above: Performed By: #### C BC ####[facility] Raccrzlkif7697 [place] [id number]. Chapisrenu Pulliam Basophils/100 WBC (Bld) 0.0 % Critically low 0.2-2.0 [facility] Comment on above: Performed By: #### C BC ####[facility] Tycggxzdmw1186 [place] [address]Dr. Garima Pulliam EO # 0.0 103/ul Normal 0.0-0.7 [facility] Comment on above: Performed By: #### C BC ####[facility] Bdobcfjdgt[address] [place], [place] [address]Dr. Garima Pulliam Eosinophils/100 WBC (Bld) 0.0 % Critically low 0.9-7.0 [facility] Comment on above: Performed By: #### C BC ####[facility] Hyajchaxth9965 [place] [address]Dr. Garima Pulliam Erythrocyte distribution width (RBC) [Ratio] 13.2 % Normal 11.0-15.0 [facility] Comment on above: Performed By: #### C BC ####[facility] Nccgxpgooa[address] [place], [place] [address]Dr. Garima Pulliam Hematocrit (Bld) [Volume fraction] 46.7 % Normal 42.0-54.0 [facility] Comment on above: Performed By: #### C BC ####[facility] Ablqnsbtdw8[address] [place], [place] [address]Dr. Garima Pulliam Hemoglobin (Bld) [Mass/Vol] 15.6 g/dL Normal 14.0-18.0 [facility] Comment on above: Performed By: #### C BC ####[facility] Oormgndmge7[address] [place], [place] [address]Dr. Garima Pulliam IG # 0.01 10e3/ul Normal 0.00-0.03 [facility] Comment on above: Performed By: #### C BC ####[facility] Wogzahcsvi5108 [place] [id number]. Garima Pulliam IG % 0.2 % Normal 0.0-0.5 [facility] Comment on above: Performed By: #### C BC ####[facility] Nygglpeoua5935 [place] [id number]. Garima Pulliam LYMPH # 0.8 103/ul Critically low 1.2-3.8 [facility] Comment on above: Performed By: #### C BC ####[facility] Ynwzpzhmtt1895 [place] [id number]. Garima Pulliam Lymphocytes/100 WBC (Bld) 12.7 % Critically low 20.5-60.0 [facility] Comment on above: Performed By: #### C BC ####[facility] Xuqqcfujhw3354 [place] [address]Dr. Garima Pulliam MANUAL DIFF REQ NO Normal [facility] Comment on above: Performed By: #### C BC ####[facility] Qknykihyzd3651 [place] [id number]. Garima Pulliam MCH (RBC) [Entitic mass] 30.2 pg Normal 25.9-34.0 [facility] Comment on above: Performed By: #### C BC ####[facility] Lqwqlpwdex4956 [place] [id number]. Garima Pulliam MCHC (RBC) [Mass/Vol] 33.4 g/dL Normal 29.9-35.2 [facility] Comment on above: Performed By: #### C BC ####[facility] Gxufbvakky4144 [place] [id number]. Garima Pulliam MCV (RBC) [Entitic vol] 90.3 fL Normal 80.0-94.0 [facility] Comment on above: Performed By: #### C BC ####[facility] Tomcpaaerk2080 [place] [address]Dr. Garima Heraclio MONO # 0.1 103/ul Critically low 0.3-0.8 The [facility] Comment on above: Performed By: #### C BC ####[facility] Vnlxsedwox8411 [place] [address]Dr. Garima Pulliam Monocytes/100 WBC (Bld) 0.9 % Critically low 1.7-12.0 [facility] Comment on above: Performed By: #### C BC ####[facility] Rkigsecuxw5391 [place] [id number]. Garima Pulliam NEUT # 5.6 103/ul Normal 1.4-6.5 [facility] Comment on above: Performed By: #### C BC ####[facility] Txkxkbvjzq5971 [place] [id number]. Garima Pulliam Neutrophils/100 WBC (Bld) 86.2 % Critically high 43.0-75.0 [facility] Comment on above: Performed By: #### C BC ####[facility] Ykoyyjldon9376 [place] [address]Dr. Garima Pulliam Platelet mean volume (Bld) [Entitic vol] 9.1 fL Critically low 9.5-13.5 [facility] Comment on above: Performed By: #### C BC ####[facility] Lkgfnkhuau[address] [place], [place] [address]Dr. Garima Pulliam PLT 169 103/ul Normal 150-450 [facility] Comment on above: Performed By: #### C BC ####[facility] Zjzvqzlxkj5[address] [place], [place] [address]Dr. Garima Pulliam RBC 5.17 106/ul Normal 4.70-6.10 [facility] Comment on above: Performed By: #### C BC ####[facility] Si[address]ztizkn[address] [place], [place] [id number]. Garima Pulliam WBC 6.5 103/ul Normal 4.0-11.0 [facility] Comment on above: Performed By: #### C BC ####[facility] Zleptlhavw2[address] [place], [place] [address]Dr. Garima Pulliam D-DIMERon 01-13-2023 D-DIMER 0.41 mg/L FEU Normal <=0.59 [facility] Comment on above: Performed By: #### D DIM ####[facility] Svdsjzeoue2563 [place] [address]Dr. Garima Pulliam D-DIMER COMMENTS SEE BELOW Normal [facility] Comment on above: Result Comment: Incr eases [...] generalized hospitalization. Performed By: #### D DIM ####[facility] Schixtoooz[address] [place], [place] [address]Dr. Garima Pulliam PROF 14(COMP METB)on 023 Albumin [Mass/Vol] 3.4 g/dL Normal 3.4-5.0 [facility] Comment on above: Performed By: #### C MP ####[facility] Kccwshytya[address] [place], [place] [address]Dr. Garima Pulliam Albumin/Globulin [Mass ratio] 1.3 {ratio} Normal [facility] Comment on above: Performed By: #### C MP ####[facility] Iqxdqrvqij3[address] [place], [place] [address]Dr. Garima Pulliam ALP [Catalytic activity/Vol] 83 U/L Normal 46-116 [facility] Comment on above: Performed By: #### C MP ####[facility] Bugtfrtiwq6437[address] [place], [place] [address]Dr. Garima Pulliam ALT [Catalytic activity/Vol] 25 U/L Normal 16-63 [facility] Comment on above: Performed By: #### C MP ####[facility] Mvbywfnquv4707 [place] [address]Dr. Garima Pulliam Anion gap [Moles/Vol] 14.5 mmol/L Normal [facility] Comment on above: Performed By: #### C MP ####[facility] Iodpmuwxvz6[address] [place], [place] [address]Dr. Garima Pulliam AST [Catalytic activity/Vol] 19 U/L Normal 15-37 [facility] Comment on above: Performed By: #### C MP ####[facility] Aojtshbrmc[address] [place], [place] [address]Dr. Garima Pulliam Bilirubin [Mass/Vol] 0.4 mg/dL Normal 0.2-1.0 [facility] Comment on above: Performed By: #### C MP ####[facility] Dvwivdxpbd03[address] [place], [place] [address]Dr. Garima Pulliam Calcium [Mass/Vol] 8.7 mg/dL Normal 8.5-10.1 [facility] Comment on above: Performed By: #### C MP ####[facility] Ozuofhjzgn7[address] [place], [place] [address]Dr. Garima Pulliam Chloride [Moles/Vol] 104 mmol/L Normal 98-107 [facility] Comment on above: Performed By: #### C MP ####[facility] Vzbqoubclr[address] [place], [place] [address]Dr. Garima Pulliam CO2 [Moles/Vol] 24.5 mmol/L Normal 21.0-32.0 [facility] Comment on above: Performed By: #### C MP ####[facility] Plhumsqije50[address] [place], [place] [address]Dr. Garima Pulliam Creatinine [Mass/Vol] 0.70 mg/dL Normal 0.70-1.30 [facility] Comment on above: Performed By: #### C MP ####[facility] Ldgmllpbpg7[address] [place], [place] [address]Dr. Garima Heraclio EGFR-AF EQUATORIAL GUINEAN >60 Normal >=60 [facility] Comment on above: Performed By: #### C MP ####[facility] Gkswkdlwoa[address] [place], [place] [address]Dr. Chapisrenu Heraclio EGFR-NON AF EQUATORIAL GUINEAN >60 Normal >=60 [facility] Comment on above: Performed By: #### C MP ####[facility] Mrdndngoli[address] [place], [place] [address]Dr. Chapisrenu Pulliam Globulin (S) [Mass/Vol] 2.6 g/dL Normal [facility] Comment on above: Performed By: #### C MP ####[facility] Tiunbuiwks01[address] [place] [address]Dr. Garima Pulliam Glucose [Mass/Vol] 196 mg/dL Critically high 74-106 [facility] Comment on above: Performed By: #### C MP ####[facility] Zefdyfbqfo1086 [place] [address]Dr. Garima Pulliam Potassium [Moles/Vol] 4.0 mmol/L Normal 3.5-5.1 [facility] Comment on above: Performed By: #### C MP ####[facility] Suaelpzgri7302 [place] [address]Dr. Garima Pulliam Protein [Mass/Vol] 6.0 g/dL Critically low 6.4-8.2 [facility] Comment on above: Performed By: #### C MP ####[facility] Ursznqcetf8[address] [place], [place] [address]Dr. Garima Pulliam Sodium [Moles/Vol] 139 mmol/L Normal 136-145 [facility] Comment on above: Performed By: #### C MP ####[facility] Itntvuyoas36[address] [place], [place] [address]Dr. Garima Pulliam Urea nitrogen [Mass/Vol] 7.0 mg/dL Normal 7.0-18.0 [facility] Comment on above: Performed By: #### C MP ####[facility] Xnjidknmuu49[address] [place], [place] [address]Dr. Garima Heraclio Urea nitrogen/Creatinine [Mass ratio] 10.0 mg/mg Normal [facility] Comment on above: Performed By: #### C MP ####[facility] Oypxbheuku[address] [place], [place] [address]Dr. Garima Heraclio BNPon 01-12-2023 Natriuretic peptide B (Bld) [Mass/Vol] 141.0 pg/mL Normal <=900.0 [facility] Comment on above: Performed By: #### C MP, BNP, HSTROPN ####[facility] Cboajdqgxw[address] [place], [place] [address]Dr. Garima Heraclio CBC AUTO DIFFon 01-12-2023 BASO # 0.0 103/ul Normal 0.0-0.1 [facility] Comment on above: Performed By: #### C BC ####[facility] [address]zgt[address] [place] [id number]. Garima Heraclio Basophils/100 WBC (Bld) 0.2 % Normal 0.2-2.0 [facility] Comment on above: Performed By: #### C BC ####[facility] Psmlilfefn119[address] [place] [address]Dr. Garima Heraclio EO # 0.2 103/ul Normal 0.0-0.7 [facility] Comment on above: Performed By: #### C BC ####[facility] Yqhcqlzcnj79[address] [place] [address]Dr. Garima Heraclio Eosinophils/100 WBC (Bld) 2.7 % Normal 0.9-7.0 [facility] Comment on above: Performed By: #### C BC ####[facility] Hyvkuwuupm[address] [place], [place] [address]Dr. Garima Pulliam Erythrocyte distribution width (RBC) [Ratio] 13.3 % Normal 11.0-15.0 [facility] Comment on above: Performed By: #### C BC ####[facility] Uulacexiwa[address] [place], [place] [address]Dr. Garima Pulliam Hematocrit (Bld) [Volume fraction] 42.3 % Normal 42.0-54.0 [facility] Comment on above: Performed By: #### C BC ####[facility] Oldmyyzfqm[address] [place], [place] [address]Dr. Garima Pulliam Hemoglobin (Bld) [Mass/Vol] 14.3 g/dL Normal 14.0-18.0 [facility] Comment on above: Performed By: #### C BC ####[facility] Mppusnzzvn[address] [place], [place] [address]Dr. Garima Pulliam IG # 0.02 10e3/ul Normal 0.00-0.03 [facility] Comment on above: Performed By: #### C BC ####[facility] Ysnxyedgrz36[address] [place] [id number]. Garima Pulliam IG % 0.2 % Normal 0.0-0.5 [facility] Comment on above: Performed By: #### C BC ####[facility] Goiblffylw33[address] [place] [id number]. Garima Pulliam LYMPH # 2.6 103/ul Normal 1.2-3.8 [facility] Comment on above: Performed By: #### C BC ####[facility] Vojmlnuecw5629 [place] [id number]. Garima Heraclio Lymphocytes/100 WBC (Bld) 29.6 % Normal 20.5-60.0 [facility] Comment on above: Performed By: #### C BC ####[facility] Xbswyemqxw10[address] [place] [address]Dr. Garima Heraclio MANUAL DIFF REQ NO Normal [facility] Comment on above: Performed By: #### C BC ####[facility] Jswlnnflib3770 [place] [id number]. Garima Pulliam MCH (RBC) [Entitic mass] 30.2 pg Normal 25.9-34.0 [facility] Comment on above: Performed By: #### C BC ####[facility] Lxvydzzpvj0[address] [place] [address]Dr. Garima Pulliam MCHC (RBC) [Mass/Vol] 33.8 g/dL Normal 29.9-35.2 [facility] Comment on above: Performed By: #### C BC ####[facility] Qbtlqskllh6864 [place] [id number]. Garima Pulliam MCV (RBC) [Entitic vol] 89.2 fL Normal 80.0-94.0 [facility] Comment on above: Performed By: #### C BC ####[facility] Brgzxkaalk[address] [place], [place] [address]Dr. Chapisrenu Pulliam MONO # 0.7 103/ul Normal 0.3-0.8 [facility] Comment on above: Performed By: #### C BC ####[facility] Dckwzdmzba8465 [place] [id number]. Garima Pulliam Monocytes/100 WBC (Bld) 8.3 % Normal 1.7-12.0 [facility] Comment on above: Performed By: #### C BC ####[facility] Ziyulgpaop2168 [place] [id number]. Garima Pulliam NEUT # 5.1 103/ul Normal 1.4-6.5 [facility] Comment on above: Performed By: #### C BC ####[facility] Aqckhzkhai1744 [place] [id number]. Garima Pulliam Neutrophils/100 WBC (Bld) 59.0 % Normal 43.0-75.0 [facility] Comment on above: Performed By: #### C BC ####[facility] Nnjqfneeiq9306 [place] [address]Dr. Garima Pulliam Platelet mean volume (Bld) [Entitic vol] 8.7 fL Critically low 9.5-13.5 [facility] Comment on above: Performed By: #### C BC ####[facility] Hqcrcssttr5934 [place] [address]Dr. Garima Pulliam PLT 182 103/ul Normal 150-450 [facility] Comment on above: Performed By: #### C BC ####[facility] Dtagwfvasx0597 [place] [id number]. Garima Pulliam RBC 4.74 106/ul Normal 4.70-6.10 [facility] Comment on above: Performed By: #### C BC ####[facility] Xxmzxawdtw[address] [place], [place] [id number]. Garima Pulliam WBC 8.7 103/ul Normal 4.0-11.0 [facility] Comment on above: Performed By: #### C BC ####[facility] Ffbdmpgflp[address] [place], [place] [address]Dr. Garima Pulliam Covid-19 PCR (CVDTB)on 12-25 SARS-CoV-2 (COVID-19) RNA MARIE+probe Ql (Unsp spec) Not detected Normal NOT DETECTED [facility] Comment on above: Result Comment: When diagnostic [...] for this test is supported by the [employer] of [employer] and Human Service's declaration that [...] be used). Performed By: #### C VDTBH ####[facility] Hjmwcwzqji70[address] [place] [address]Dr. Garima Pulliam PROF 14(COMP METB)on 023 Albumin [Mass/Vol] 3.6 g/dL Normal 3.4-5.0 [facility] Comment on above: Performed By: #### C MP, BNP, HSTROPN ####[facility] Lpuxufhzme7[address] [place] [address]Dr. Garima Pulliam Albumin/Globulin [Mass ratio] 1.5 {ratio} Normal [facility] Comment on above: Performed By: #### C MP, BNP, HSTROPN ####[facility] Qtcrajxaxa4179 [place] [address]Dr. Garima Pulliam ALP [Catalytic activity/Vol] 79 U/L Normal 46-116 [facility] Comment on above: Performed By: #### C MP, BNP, HSTROPN ####[facility] Qvdgpqiwty3768 [place] [address]Dr. Garima Pulliam ALT [Catalytic activity/Vol] 27 U/L Normal 16-63 [facility] Comment on above: Performed By: #### C MP, BNP, HSTROPN ####[facility] Oqggrmbhne7[address] [place] [address]Dr. Garima Pulliam Anion gap [Moles/Vol] 11.7 mmol/L Normal [facility] Comment on above: Performed By: #### C MP, BNP, HSTROPN ####[facility] Yhqllselwf7262 [place] [address]Dr. Garima Pulliam AST [Catalytic activity/Vol] 21 U/L Normal 15-37 [facility] Comment on above: Performed By: #### C MP, BNP, HSTROPN ####[facility] Jfcnbdagfn79[address] [place] [address]Dr. Garima Pulliam Bilirubin [Mass/Vol] 0.3 mg/dL Normal 0.2-1.0 [facility] Comment on above: Performed By: #### C MP, BNP, HSTROPN ####[facility] Uslcnjpooc1035 [place] [address]Dr. Garima Pulliam Calcium [Mass/Vol] 8.9 mg/dL Normal 8.5-10.1 [facility] Comment on above: Performed By: #### C MP, BNP, HSTROPN ####[facility] Qoweokfhex[address] [place] [address]Dr. Garima Pulliam Chloride [Moles/Vol] 107 mmol/L Normal 98-107 [facility] Comment on above: Performed By: #### C MP, BNP, HSTROPN ####[facility] Epzkepgjhc0758 [place] [address]Dr. Garima Pulliam CO2 [Moles/Vol] 26.0 mmol/L Normal 21.0-32.0 [facility] Comment on above: Performed By: #### C MP, BNP, HSTROPN ####[facility] Emkxrebxog9274 [place] [address]Dr. Garima Pulliam Creatinine [Mass/Vol] 0.65 mg/dL Critically low 0.70-1.30 [facility] Comment on above: Performed By: #### C MP, BNP, HSTROPN ####[facility] Pxcfbmevxw15[address] [place] [address]Dr. Yilan Pulliam EGFR-AF EQUATORIAL GUINEAN >60 Normal >=60 [facility] Comment on above: Performed By: #### C MP, BNP, HSTROPN ####[facility] Mizswwmlto5926 [place] [address]Dr. Garima Pulliam EGFR-NON AF EQUATORIAL GUINEAN >60 Normal >=60 [facility] Comment on above: Performed By: #### C MP, BNP, HSTROPN ####[facility] Jnmjtvohyx5197 [place] [address]Dr. Garima Pulliam Globulin (S) [Mass/Vol] 2.4 g/dL Normal [facility] Comment on above: Performed By: #### C MP, BNP, HSTROPN ####[facility] Axuzyvzjow[address] [place], [place] [address]Dr. Garima Pulliam Glucose [Mass/Vol] 85 mg/dL Normal 74-106 [facility] Comment on above: Performed By: #### C MP, BNP, HSTROPN ####[facility] Lwpqhwowog55[address] [place] [address]Dr. Garima Pulliam Potassium [Moles/Vol] 3.7 mmol/L Normal 3.5-5.1 [facility] Comment on above: Performed By: #### C MP, BNP, HSTROPN ####[facility] Vbkxkcemny30[address] [place] [address]Dr. Garima Pulliam Protein [Mass/Vol] 6.0 g/dL Critically low 6.4-8.2 [facility] Comment on above: Performed By: #### C MP, BNP, HSTROPN ####[facility] Dasegijndi70[address] [place] [address]Dr. Garima Pulliam Sodium [Moles/Vol] 141 mmol/L Normal 136-145 [facility] Comment on above: Performed By: #### C MP, BNP, HSTROPN ####[facility] Cfysmufcoz8947 [place] [address]Dr. Garima Pulliam Urea nitrogen [Mass/Vol] 5.0 mg/dL Critically low 7.0-18.0 [facility] Comment on above: Performed By: #### C MP, BNP, HSTROPN ####[facility] Jwhwsityju72[address] [place] [address]Dr. Garima Pulliam Urea nitrogen/Creatinine [Mass ratio] 7.7 mg/mg Normal [facility] Comment on above: Performed By: #### C MP, BNP, HSTROPN ####[facility] Ljleialavw9[address] [place] [address]Dr. Garima Pulliam PROTIMEon 01-12-2023 INR Coag (PPP) [Relative time] 1.16 {INR} Normal [facility] Comment on above: Performed By: #### P TT, PT ####[facility] Stzwwzwrtg[address] [place] [address]Dr. Garima Pulliam INR GUIDELINES SEE BELOW Normal [facility] Comment on above: Result Comment: WESLEY RED INR: 2.0 - 3.0 CONDITIONS NOT LISTED BELOW 2.5 - 3.5 FOR PROSTHETIC HEART VALVE REPLACEMENT 2.5 - 3.5 RECURRENT THROMBOSIS Performed By: #### P TT, PT ####[facility] Lzrvsnfcic[address] [place], [place] [address]Dr. Garima Pulliam PT Coag (PPP) [Time] 12.2 s Critically high 9.0-11.6 [facility] Comment on above: Performed By: #### P TT, PT ####[facility] Bdahradtsr4203 [place] [address]Dr. Garima Pulliam PTTon 01-12-2023 aPTT Coag (Bld) [Time] 29.1 s Normal 22.3-36.2 [facility] Comment on above: Performed By: #### P TT, PT ####[facility] Fvsbdmkeep[address] [place], [place] [address]Dr. Garima Pulliam TROPONIN, HIGH SENSITIVITYon 01-12-2023 HSTROP 10.3 pg/mL Normal 4.0-76.1 [facility] Comment on above: Result Comment: CUT- OFF POINTS HAVE BEEN ESTABLISHED BASED ON THE FOURTH UNIVERSAL DEFINITIONS OF MYOCARDIALINFARCTION. THE UPPER REFERENCE LIMIT (URL) OF TROPONIN, DEFINED THE 99TH PERCENTILE OFcTnI DISTRIBUTION IN A REFERENCE POPULATION, HAS BEEN CONFIRMED THE DECISION THRESHOLDFOR [place] DIAGNOSIS. Performed By: #### H STROPN ####[facility] Psbypztrqn112[address] [place] [address]Dr. Garima Pulliam HSTROP 9.2 pg/mL Normal 4.0-76.1 [facility] Comment on above: Result Comment: CUT- OFF POINTS HAVE BEEN ESTABLISHED BASED ON THE FOURTH UNIVERSAL DEFINITIONS OF MYOCARDIALINFARCTION. THE UPPER REFERENCE LIMIT (URL) OF TROPONIN, DEFINED THE 99TH PERCENTILE OFcTnI DISTRIBUTION IN A REFERENCE POPULATION, HAS BEEN CONFIRMED THE DECISION THRESHOLDFOR [place] DIAGNOSIS. Performed By: #### C MP, BNP, HSTROPN ####[facility] Ykwsuwchye[address] [place] [address]Dr. Garima Pulliam XR CHEST 1 Von 01-12-2023 XR CHEST 1 V Normal [facility] XR CHEST 1 Von 01-01-2023 XR CHEST 1 V Normal [facility] CARDIAC NASH 3-6on 3 CK [Catalytic activity/Vol] 196 U/L Normal 39-308 [facility] Comment on above: Performed By: #### C MREP ####[facility] Ohysakijvi07[address] [place] [address]Dr. Garima Pulliam CK.MB [Mass/Vol] 7.41 ng/mL Critically high <=3.60 [facility] Comment on above: Performed By: #### C MREP ####[facility] Vprbabalpq6[address] [place] [address]Dr. Garima Pulliam HSTROP 10.3 pg/mL Normal 4.0-76.1 [facility] Comment on above: Result Comment: CUT- OFF POINTS HAVE BEEN ESTABLISHED BASED ON THE FOURTH UNIVERSAL DEFINITIONS OF MYOCARDIALINFARCTION. THE UPPER REFERENCE LIMIT (URL) OF TROPONIN, DEFINED THE 99TH PERCENTILE OFcTnI DISTRIBUTION IN A REFERENCE POPULATION, HAS BEEN CONFIRMED THE DECISION THRESHOLDFOR [place] DIAGNOSIS. Performed By: #### C MREP ####[facility] Otncrzjuvq62[address] [place] [id number]. Garima Pulliam XR CHEST 1 Von 12-26-2022 XR CHEST 1 V Normal [facility] BNPon 12-25-2022 Natriuretic peptide B (Bld) [Mass/Vol] 98.0 pg/mL Normal <=900.0 [facility] Comment on above: Performed By: #### B MARVIN FRENCH CMADM ####[facility] Tovmrnnkgg9[address] [place] [address]Dr. Garima Pulliam CARDIAC NASH ADMITon 023 CK [Catalytic activity/Vol] 208 U/L Normal 39-308 [facility] Comment on above: Performed By: #### B MARVIN FRENCH CMADM ####[facility] Ruigyffyiw5936 [place] [address]Dr. Garima Pulliam CK.MB [Mass/Vol] 7.63 ng/mL Critically high <=3.60 [facility] Comment on above: Performed By: #### B MARVIN FRENCH CMADM ####[facility] Qqcwdferaf[address] [place], [place] [address]Dr. Garima Pulliam HSTROP 8.8 pg/mL Normal 4.0-76.1 [facility] Comment on above: Result Comment: CUT- OFF POINTS HAVE BEEN ESTABLISHED BASED ON THE FOURTH UNIVERSAL DEFINITIONS OF MYOCARDIALINFARCTION. THE UPPER REFERENCE LIMIT (URL) OF TROPONIN, DEFINED THE 99TH PERCENTILE OFcTnI DISTRIBUTION IN A REFERENCE POPULATION, HAS BEEN CONFIRMED THE DECISION THRES[place]OLDFOR [place] DIAGNOSIS. Performed By: #### B MARVIN FRENCH CMADM ####[facility] Cwltvgucrn[address] [place], [place] [address]Dr. Garima Pulliam DORIS 83 ng/mL Normal 16-96 [facility] Comment on above: Performed By: #### B MARVIN FRENCH CMADM ####[facility] Eqhsfrnimo7[address] [place], [place] [address]Dr. Garima Pulliam CBC AUTO DIFFon 12-25-2022 BASO # 0.0 103/ul Normal 0.0-0.1 [facility] Comment on above: Performed By: #### C BC ####[facility] Gkreqollrw16[address] [place], [place] [address]Dr. Garima Pulliam Basophils/100 WBC (Bld) 0.0 % Critically low 0.2-2.0 [facility] Comment on above: Performed By: #### C BC ####[facility] Izightqukr0375 [place] [address]Dr. Garima Pulliam EO # 0.0 103/ul Normal 0.0-0.7 [facility] Comment on above: Performed By: #### C BC ####[facility] Xzsvurgvfh[address] [place], [place] [address]Dr. Garima Pulliam Eosinophils/100 WBC (Bld) 0.7 % Critically low 0.9-7.0 [facility] Comment on above: Performed By: #### C BC ####[facility] Qfwvdzvhlr06[address] [place], [place] [address]Dr. Garima Pulliam Erythrocyte distribution width (RBC) [Ratio] 13.4 % Normal 11.0-15.0 [facility] Comment on above: Performed By: #### C BC ####[facility] Mzcbhcybwl[address] [place], [place] [address]Dr. Garima Pulliam Hematocrit (Bld) [Volume fraction] 42.9 % Normal 42.0-54.0 [facility] Comment on above: Performed By: #### C BC ####[facility] Lbhbvnklpz[address] [place], [place] [address]Dr. Garima Pulliam Hemoglobin (Bld) [Mass/Vol] 14.4 g/dL Normal 14.0-18.0 [facility] Comment on above: Performed By: #### C BC ####[facility] Akscrlqsfj[address] [place], [place] [address]Dr. Garima Pulliam IG # 0.00 10e3/ul Normal 0.00-0.03 [facility] Comment on above: Performed By: #### C BC ####[facility] Gkugjiailr3[address] [place], [place] [address]Dr. Garima Pulliam IG % 0.0 % Normal 0.0-0.5 [facility] Comment on above: Performed By: #### C BC ####[facility] Xmwhssoqoe24[address] [place], [place] [address]Dr. Garima Pulliam LYMPH # 2.4 103/ul Normal 1.2-3.8 [facility] Comment on above: Performed By: #### C BC ####[facility] Zzchieoowl3076 [place] [id number]. Chapisrenu Pulliam Lymphocytes/100 WBC (Bld) 29.2 % Normal 20.5-60.0 [facility] Comment on above: Performed By: #### C BC ####[facility] Kjvaktysyz9502 [place] [id number]. Garima Pulliam MANUAL DIFF REQ NO Normal [facility] Comment on above: Performed By: #### C BC ####[facility] Hjxrutoecc8137 [place] [id number]. Garmia Pulliam MCH (RBC) [Entitic mass] 30.7 pg Normal 25.9-34.0 [facility] Comment on above: Performed By: #### C BC ####[facility] Dvnzftznch[address] [place], [place] [address]Dr. Garima Pulliam MCHC (RBC) [Mass/Vol] 33.6 g/dL Normal 29.9-35.2 [facility] Comment on above: Performed By: #### C BC ####[facility] Qqqctwkksk[address] [place], [place] [address]Dr. Garima Pulliam MCV (RBC) [Entitic vol] 91.5 fL Normal 80.0-94.0 [facility] Comment on above: Performed By: #### C BC ####[facility] Uatatdqooi90[address] [place], [place] [address]Dr. Garima Pulliam MONO # 0.0 103/ul Critically low 0.3-0.8 [facility] Comment on above: Performed By: #### C BC ####[facility] Ygzggbsakj9555 [place] [address]Dr. Garima Pulliam Monocytes/100 WBC (Bld) 8.0 % Normal 1.7-12.0 [facility] Comment on above: Performed By: #### C BC ####[facility] Szmnwfzpso8[address] [place], [place] [address]Dr. Garima Pulliam NEUT # 5.1 103/ul Normal 1.4-6.5 [facility] Comment on above: Performed By: #### C BC ####[facility] Dbvopwumpq8305 [place], [place] [address]Oa. Garima Pulliam Neutrophils/100 WBC (Bld) 62.8 % Normal 43.0-75.0 [facility] Comment on above: Performed By: #### C BC ####[facility] Iogjzaifri5183 [place], [place] [address]En. Garima Pulliam Platelet mean volume (Bld) [Entitic vol] 8.6 fL Critically low 9.5-13.5 [facility] Comment on above: Performed By: #### C BC ####[facility] Rdqhrkompe0942 [place] [id number]. Garima Pulliam PLT 200 103/ul Normal 150-450 [facility] Comment on above: Performed By: #### C BC ####[facility] Rjxzscdhpb1537 [place] [id number]. Garima Pulliam RBC 4.69 106/ul Critically low 4.70-6.10 [facility] Comment on above: Performed By: #### C BC ####[facility] Czfqiqmmoj2139 [place], [place] [address]Cj. Garima Pulliam WBC 8.2 103/ul Normal 4.0-11.0 [facility] Comment on above: Performed By: #### C BC ####[facility] Pcohlsnvsl0443 [place], [place] [address]Tb. Garima Pulliam [facility]on SARS-CoV-2 (COVID-19) RNA MARIE+probe Ql (Unsp spec) Not detected Normal NOT DETECTED [facility] Comment on above: Result Comment: When diagnostic [...] for this test is supported by the [employer] of [employer] and Human Service's declaration that [...] be used). Performed By: #### C VDTBH ####[facility] Gdgtwlpwpy4[address] [place], [place] [address]Dr. Garima Pulliam INFLUENZA A AND B AGon 12-25 INFLUANEGH SEE BELOW Normal [facility] Comment on above: Result Comment: Nega tive for Flu A protein angiten. Infection due to Flu A cannot be ruled out. Flu A angiten in the sample may be below the detection limit of the test. Performed By: #### I NFLUAB ####[facility] Xepwegobsf[address] [place], [place] [address]Dr. Garima Pulliam INFLUBNEGH SEE BELOW Normal [facility] Comment on above: Result Comment: Nega tive for Flu B protein antigen. Infection due to Flu B cannot be ruled out. Flu B antigen in the sample may be below the detection limit of the test. Performed By: #### I NFLUAB ####[facility] Tanbiksksd4[address] [place], [place] [address]Dr. Garima Pulliam INFLUENZA A AG Negative Normal NEGATIVE SEE COMMENT [facility] Comment on above: Performed By: #### I NFLUAB ####[facility] Flgxfxovye87[address] [place], [place] [address]Dr. renu [facility] INFLUENZA B AG Negative Normal NEGATIVE SEE COMMENT [facility] Comment on above: Performed By: #### I NFLUAB ####[facility] Goxycdmefg6[address] [place], [place] [address]Dr. Garima Pulliam PROF CHEM 8 (BAS METB)on Anion gap [Moles/Vol] 11.1 mmol/L Normal Th [facility] Comment on above: Performed By: #### B LINING FOLDER, BMP, CMADM ####[facility] Zehmpytcou4[address] [place], [place] [address]Dr. Garima Pulliam Calcium [Mass/Vol] 8.5 mg/dL Normal 8.5-10.1 [facility] Comment on above: Performed By: #### B LINING FOLDER, MARVIN, CMADM ####[facility] Ussmtdrmzb6618 [place] [id number]. Garima Pulliam Chloride [Moles/Vol] 106 mmol/L Normal 98-107 [facility] Comment on above: Performed By: #### B LINING FOLDER, BMP, CMADM ####[facility] Qncoufcspw9019 [place] [address]Dr. Garima Pulliam CO2 [Moles/Vol] 27.4 mmol/L Normal 21.0-32.0 [facility] Comment on above: Performed By: #### B LINING FOLDER, MARVIN, CMADM ####[facility] Gzvvfnntpv1144 [place] [address]Dr. Garima Pulliam Creatinine [Mass/Vol] 0.65 mg/dL Critically low 0.70-1.30 [facility] Comment on above: Performed By: #### B LINING FOLDER, MARVIN, CMADM ####[facility] Iqwxdycivm5701 [place] [address]Dr. Garima Pulliam EGFR-AF EQUATORIAL GUINEAN >60 Normal >=60 [facility] Comment on above: Performed By: #### B LINING FOLDER, BMP, CMADM ####[facility] Whrbxqyuow9109 [place] [address]Dr. Garima Pulliam EGFR-NON AF EQUATORIAL GUINEAN >60 Normal >=60 [facility] Comment on above: Performed By: #### B LINING FOLDER, BMP, CMADM ####[facility] Tiqlslgerj4802 [place] [address]Dr. Garima Pulliam Glucose [Mass/Vol] 140 mg/dL Critically high 74-106 [facility] Comment on above: Performed By: #### B LINING FOLDER, BMP, CMADM ####[facility] Gmcfjmyieb5421 [place] [address]Dr. Garima Pulliam Potassium [Moles/Vol] 3.5 mmol/L Normal 3.5-5.1 [facility] Comment on above: Performed By: #### B LINING FOLDER, BMP, CMADM ####[facility] Lpxmumebna0079 [place] [address]Dr. Garima Pulliam Sodium [Moles/Vol] 141 mmol/L Normal 136-145 [facility] Comment on above: Performed By: #### B LINING FOLDER, BMP, CMADM ####[facility] Eqlwpntggd3151 [place] [address]Dr. Garima Pulliam Urea nitrogen [Mass/Vol] 8.0 mg/dL Normal 7.0-18.0 [facility] Comment on above: Performed By: #### B LINING FOLDER, BMP, CMADM ####[facility] Tysxzgedya3867 [place] [address]Dr. Garima Pulliam Urea nitrogen/Creatinine [Mass ratio] 12.3 mg/mg Normal [facility] Comment on above: Performed By: #### B LINING FOLDER, BMP, CMADM ####[facility] Svfvmhnddl[address] [place], [place] [address]Dr. Garima Pulliam CARDIAC NASH ADMITon 023 CK [Catalytic activity/Vol] 165 U/L Normal 39-308 [facility] Comment on above: Performed By: #### B DAVID, CMADM ####[facility] Fgvnvbjuof[address] [place], [place] [address]Dr. Garima Pulliam CK.MB [Mass/Vol] 6.48 ng/mL Critically high <=3.60 [facility] Comment on above: Performed By: #### B MP, CMADM ####[facility] [address]akytzllj[address] [place], [place] [address]Dr. Garima Pulliam HSTROP 11.7 pg/mL Normal 4.0-76.1 [facility] Comment on above: Result Comment: CUT- OFF POINTS HAVE BEEN ESTABLISHED BASED ON THE FOURTH UNIVERSAL DEFINITIONS OF MYOCARDIALINFARCTION. THE UPPER REFERENCE LIMIT (URL) OF TROPONIN, DEFINED THE 99TH PERCENTILE OFcTnI DISTRIBUTION IN A REFERENCE POPULATION, HAS BEEN CONFIRMED THE DECISION THRESHOLDFOR [place] DIAGNOSIS. Performed By: #### B MP, CMADM ####[facility] Dqqwpqxmeb[address] [place], [place] [address]Dr. Garima Pulliam DORIS 83 ng/mL Normal 16-96 [facility] Comment on above: Performed By: #### B MP, CMADM ####[facility] Gpypofzhrk[address]76 [place] [address]Dr. Garima Pulliam CBC AUTO DIFFon 12-10-2022 BASO # 0.0 103/ul Normal 0.0-0.1 [facility] Comment on above: Performed By: #### C BC ####[facility] Uwghawomef[address] [place], [place] [address]Dr. Garima Heraclio Basophils/100 WBC (Bld) 0.3 % Normal 0.2-2.0 [facility] Comment on above: Performed By: #### C BC ####[facility] Jpbagfkdjb[address] [place], [place] [address]Dr. Garima Pulliam EO # 0.1 103/ul Normal 0.0-0.7 [facility] Comment on above: Performed By: #### C BC ####[facility] Jjjopurvcd[address] [place], [place] [address]Dr. Gairma Pulliam Eosinophils/100 WBC (Bld) 0.4 % Critically low 0.9-7.0 [facility] Comment on above: Performed By: #### C BC ####[facility] Oxbdxbocoy[address] [place], [place] [address]Dr. Garima Pulliam Erythrocyte distribution width (RBC) [Ratio] 13.2 % Normal 11.0-15.0 [facility] Comment on above: Performed By: #### C BC ####[facility] Gpxosxrmcc08[address] [place], [place] [address]Dr. Garima Pulliam Hematocrit (Bld) [Volume fraction] 42.4 % Normal 42.0-54.0 [facility] Comment on above: Performed By: #### C BC ####[facility] Fqdeunfzck63[address] [place], [place] [address]Dr. Garima Pulliam Hemoglobin (Bld) [Mass/Vol] 14.4 g/dL Normal 14.0-18.0 [facility] Comment on above: Performed By: #### C BC ####[facility] Hlvhlcajtc4[address] [place] [id number]. Garima Heraclio IG # 0.05 10e3/ul Critically high 0.00-0.[address] [facility] Comment on above: Performed By: #### C BC ####[facility] Zsbxtxpdbx79[address] [place] [address]Dr. Garima Heraclio IG % 0.4 % Normal 0.0-0.5 [facility] Comment on above: Performed By: #### C BC ####[facility] Caswpzvfkh87[address] [place], [place] [address]Dr. Garima Pulliam LYMPH # 0.8 103/ul Critically low 1.2-3.8 The [facility] Comment on above: Performed By: #### C BC ####[facility] Lbmyuwzymr[address] [place], [place] [address]Dr. Chapisrenu Pulliam Lymphocytes/100 WBC (Bld) 6.5 % Critically low 20.5-60.0 [facility] Comment on above: Performed By: #### C BC ####[facility] Lyrlxthukn[address] [place], [place] [address]Dr. Chapisrenu Pulliam MANUAL DIFF REQ NO Normal The [facility] Comment on above: Performed By: #### C BC ####[facility] Kkgbcizwsj22[address] [place], [place] [address]DrAdalberto Garima Pulliam MCH (RBC) [Entitic mass] 30.5 pg Normal 25.9-34.0 [facility] Comment on above: Performed By: #### C BC ####[facility] Dbznkfiswf[address] [place], [place] [address]DrAdalberto Garima Heraclio MCHC (RBC) [Mass/Vol] 34.0 g/dL Normal 29.9-35.2 [facility] Comment on above: Performed By: #### C BC ####[facility] Yyzkghsm[address] [place], [place] [address]DrAdalberto Garima Heraclio MCV (RBC) [Entitic vol] 89.8 fL Normal 80.0-94.0 [facility] Comment on above: Performed By: #### C BC ####[facility] Mvvahcknhc[address] [place], [place] [address]Dr. Garima Pulliam MONO # 0.2 103/ul Critically low 0.3-0.8 The [facility] Comment on above: Performed By: #### C BC ####[facility] Ghnafxugxg9541 [place] [id number]. Garima Pulliam Monocytes/100 WBC (Bld) 2.0 % Normal 1.7-12.0 [facility] Comment on above: Performed By: #### C BC ####[facility] Yqnxymairq9947 [place] [address]Dr. Chapisrenu Heraclio NEUT # 10.5 103/ul Critically high 1.4-6.5 The [facility] Comment on above: Performed By: #### C BC ####[facility] Clmsnldujl79[address] [place] [address]Dr. Garima Pulliam Neutrophils/100 WBC (Bld) 90.4 % Critically high 43.0-75.0 [facility] Comment on above: Performed By: #### C BC ####[facility] Xgogrubdif2039 [place] [address]Dr. Garima Pulliam Platelet mean volume (Bld) [Entitic vol] 9.4 fL Critically low 9.5-13.5 [facility] Comment on above: Performed By: #### C BC ####[facility] Rzwqcrljys9649 [place] [address]Dr. Garima Pulliam PLT 198 103/ul Normal 150-450 [facility] Comment on above: Performed By: #### C BC ####[facility] Vitmufyygd1751 [place] [address]Dr. Garima Pulliam RBC 4.72 106/ul Normal 4.70-6.10 [facility] Comment on above: Performed By: #### C BC ####[facility] Aggopuhgxy9645 [place] [id number]. Garima Pulliam WBC 11.6 103/ul Critically high 4.0-11.0 The [facility] Comment on above: Performed By: #### C BC ####[facility] Ieidmmkdyy1046 [place] [address]DrAdalberto Pulliam PROF CHEM 8 (BAS METB)on Anion gap [Moles/Vol] 11.3 mmol/L Normal Th [facility] Comment on above: Performed By: #### B NANCY HERNANDEZ ####[facility] Bfskynytba8347 [place] [address]Dr. Garima Pulliam Calcium [Mass/Vol] 8.9 mg/dL Normal 8.5-10.1 [facility] Comment on above: Performed By: #### B NANCY HERNANDEZ ####[facility] Vlcekwquuj1585 [place] [address]Dr. Garima Pulliam Chloride [Moles/Vol] 103 mmol/L Normal 98-107 [facility] Comment on above: Performed By: #### B NANCY HERNANDEZ ####[facility] Wzdjcfptck[address] [place], [place] [address]Dr. Garima Pulliam CO2 [Moles/Vol] 28.2 mmol/L Normal 21.0-32.0 [facility] Comment on above: Performed By: #### NANCY Larkin MP ####[facility] Qxaxardxee4869 [place] [address]Dr. Chapisrneu Pulliam Creatinine [Mass/Vol] 0.60 mg/dL Critically low 0.70-1.30 [facility] Comment on above: Performed By: #### NANCY Larkin MP ####[facility] Gfzeefrxyq5[address] [place] [address]Dr. Garima Pulliam EGFR-AF EQUATORIAL GUINEAN >60 Normal >=60 [facility] Comment on above: Performed By: #### NANCY Larkin MP ####[facility] Elpxlupswi5461 [place] [address]Dr. Garima Pulliam EGFR-NON AF EQUATORIAL GUINEAN >60 Normal >=60 [facility] Comment on above: Performed By: #### NANCY Larkin MP ####[facility] Cowvnwumfj[address] [place], [place] [address]Dr. Garima Pulliam Glucose [Mass/Vol] 166 mg/dL Critically high 74-106 [facility] Comment on above: Performed By: #### B MP, CMADM ####[facility] Epqtnrjwih3674 [place] [address]Dr. Garima Pulliam Potassium [Moles/Vol] 3.5 mmol/L Normal 3.5-5.1 [facility] Comment on above: Performed By: #### B MP, CMADM ####[facility] Ywsdanyccd0694 [place] [address]Dr. Garima Pulliam Sodium [Moles/Vol] 139 mmol/L Normal 136-145 [facility] Comment on above: Performed By: #### B DAVID, CMADM ####[facility] Eztouablqh7531 [place] [address]Dr. Garima Heraclio Urea nitrogen [Mass/Vol] 9.0 mg/dL Normal 7.0-18.0 [facility] Comment on above: Performed By: #### B DAVID, NANCY ####[facility] Kdvdhppjug90[address] [place], [place] [address]Dr. Garima Heraclio Urea nitrogen/Creatinine [Mass ratio] 15.0 mg/mg Normal [facility] Comment on above: Performed By: #### B DAVID, CMAANA ROSA ####[facility] Zlqufdiejs93[address] [place], [place] [address]Dr. Garima Pulliam XR CHEST 1 Von 12-10-2022 XR CHEST 1 V Normal [facility] BNPon 11-27-2022 Natriuretic peptide B (Bld) [Mass/Vol] 95.0 pg/mL Normal <=900.0 [facility] Comment on above: Performed By: #### C MP, HSTROPN, BNP ####[facility] Cseflrjorj44[address] [place], [place] [address]Dr. Garima Heraclio CBC AUTO DIFFon 11-27-2022 BASO # 0.0 103/ul Normal 0.0-0.1 [facility] Comment on above: Performed By: #### C BC ####[facility] Wadoxfqbne40[address] [place], [place] [address]Dr. Garima Heraclio Basophils/100 WBC (Bld) 0.2 % Normal 0.2-2.0 [facility] Comment on above: Performed By: #### C BC ####[facility] Sllulkwapv0546 [place] [id number]. Garima Pulliam EO # 0.2 103/ul Normal 0.0-0.7 [facility] Comment on above: Performed By: #### C BC ####[facility] Edirgvqriq7700 [place] [id number]. Garima Pulliam Eosinophils/100 WBC (Bld) 2.0 % Normal 0.9-7.0 [facility] Comment on above: Performed By: #### C BC ####[facility] Ptnuucmqit[address] [place], [place] [address]Dr. Garima Pulliam Erythrocyte distribution width (RBC) [Ratio] 13.2 % Normal 11.0-15.0 [facility] Comment on above: Performed By: #### C BC ####[facility] Lyongiwdoc49[address] [place], [place] [address]Dr. Garima Pulliam Hematocrit (Bld) [Volume fraction] 42.4 % Normal 42.0-54.0 [facility] Comment on above: Performed By: #### C BC ####[facility] Yxeupvvgzo34[address] [place], [place] [address]Dr. Garima Pulliam Hemoglobin (Bld) [Mass/Vol] 14.4 g/dL Normal 14.0-18.0 [facility] Comment on above: Performed By: #### C BC ####[facility] Uxpytcjkvv99[address] [place], [place] [address]Dr. Garima Pulliam IG # 0.04 10e3/ul Critically high 0.00-0.[address] [facility] Comment on above: Performed By: #### C BC ####[facility] Liroyieaho6[address] [place], [place] [address]Dr. Garima Pulliam IG % 0.4 % Normal 0.0-0.5 [facility] Comment on above: Performed By: #### C BC ####[facility] Efdlcquljc84[address] [place], [place] [address]Dr. Garima Pulliam LYMPH # 2.2 103/ul Normal 1.2-3.8 [facility] Comment on above: Performed By: #### C BC ####[facility] Lcaoznalyq2296 [place] [id number]. Garima Pulliam Lymphocytes/100 WBC (Bld) 21.5 % Normal 20.5-60.0 [facility] Comment on above: Performed By: #### C BC ####[facility] Cmgljrpfsf4683 [place] [id number]. Garima Heraclio MANUAL DIFF REQ NO Normal [facility] Comment on above: Performed By: #### C BC ####[facility] Ctrqjuvohf3600 [place] [id number]. Garima Heraclio MCH (RBC) [Entitic mass] 30.4 pg Normal 25.9-34.0 [facility] Comment on above: Performed By: #### C BC ####[facility] Sxzifrwfze7863 [place] [address]Dr. Garima Heraclio MCHC (RBC) [Mass/Vol] 34.0 g/dL Normal 29.9-35.2 [facility] Comment on above: Performed By: #### C BC ####[facility] Lrmynvyrwt5232 [place] [id number]. Garima Pulliam MCV (RBC) [Entitic vol] 89.6 fL Normal 80.0-94.0 [facility] Comment on above: Performed By: #### C BC ####[facility] Bnjfoumlsa9573 [place] [id number]. Garima Pulliam MONO # 0.8 103/ul Normal 0.3-0.8 [facility] Comment on above: Performed By: #### C BC ####[facility] Elrtomtywj1525 [place] [id number]. Chapisrenu Pulliam Monocytes/100 WBC (Bld) 7.7 % Normal 1.7-12.0 [facility] Comment on above: Performed By: #### C BC ####[facility] Nbfwybzyen[address] [place], [place] [address]Dr. Garima Pulliam NEUT # 7.0 103/ul Critically high 1.4-6.5 [facility] Comment on above: Performed By: #### C BC ####[facility] Nsrjhaplff9164 [place] [id number]. Garima Pulliam Neutrophils/100 WBC (Bld) 68.2 % Normal 43.0-75.0 [facility] Comment on above: Performed By: #### C BC ####[facility] Mblgbazokt3765 [place] [id number]. Chapisrenu Pulliam Platelet mean volume (Bld) [Entitic vol] 8.9 fL Critically low 9.5-13.5 [facility] Comment on above: Performed By: #### C BC ####[facility] Fzryeprnos0223 [place] [address]Dr. Garima Pulliam PLT 222 103/ul Normal 150-450 [facility] Comment on above: Performed By: #### C BC ####[facility] Zaplplrsjy1864 [place] [address]Dr. Garima Pulliam RBC 4.73 106/ul Normal 4.70-6.10 [facility] Comment on above: Performed By: #### C BC ####[facility] Ebnznwyvqr0069 [place] [address]Dr. Garima Pulliam WBC 10.3 103/ul Normal 4.0-11.0 [facility] Comment on above: Performed By: #### C BC ####[facility] Uobyezdqrl5970 [place] [address]Dr. Garima Pulliam PROF 14(COMP METB)on 023 Albumin [Mass/Vol] 3.7 g/dL Normal 3.4-5.0 [facility] Comment on above: Performed By: #### C MP, HSTROPN, BNP ####[facility] Lijfhqjjhc5412 [place] [address]Dr. Chapisrenu Pulliam Albumin/Globulin [Mass ratio] 1.5 {ratio} Normal [facility] Comment on above: Performed By: #### C MP, HSTROPN, BNP ####[facility] Vlmegbjpag6048 [place] [address]Dr. Garima Pulliam ALP [Catalytic activity/Vol] 79 U/L Normal 46-116 [facility] Comment on above: Performed By: #### C MP, HSTROPN, BNP ####[facility] Ikuhychhxo6423 [place] [address]Dr. Garima Pulliam ALT [Catalytic activity/Vol] 32 U/L Normal 16-63 [facility] Comment on above: Performed By: #### C MP, HSTROPN, BNP ####[facility] Yiojftzkey2843 [place] [address]Dr. Garima Pulliam Anion gap [Moles/Vol] 9.5 mmol/L Normal [facility] Comment on above: Performed By: #### C MP, HSTROPN, BNP ####[facility] Autzxeaeqd23[address] [place], [place] [address]Dr. Garima Pulliam AST [Catalytic activity/Vol] 25 U/L Normal 15-37 [facility] Comment on above: Performed By: #### C MP, HSTROPN, BNP ####[facility] Kvdhfnfhjd15[address] [place], [place] [address]Dr. Chapislan Pulliam Bilirubin [Mass/Vol] 0.4 mg/dL Normal 0.2-1.0 [facility] Comment on above: Performed By: #### C MP, HSTROPN, BNP ####[facility] Ctfwsggqxk34[address] [place], [place] [address]Dr. Garima Pulliam Calcium [Mass/Vol] 8.9 mg/dL Normal 8.5-10.1 [facility] Comment on above: Performed By: #### C MP, HSTROPN, BNP ####[facility] Asholwzmgo[address] [place], [place] [address]Dr. Chapislan Pulliam Chloride [Moles/Vol] 103 mmol/L Normal 98-107 [facility] Comment on above: Performed By: #### C MP, HSTROPN, BNP ####[facility] Kkjvullyve[address] [place], [place] [address]Dr. Yilan Pulliam CO2 [Moles/Vol] 28.6 mmol/L Normal 21.0-32.0 [facility] Comment on above: Performed By: #### C MP, HSTROPN, BNP ####[facility] Aippkaqyfs7610 [place] [address]Dr. Garima Pulliam Creatinine [Mass/Vol] 0.72 mg/dL Normal 0.70-1.30 [facility] Comment on above: Performed By: #### C MP, HSTROPN, BNP ####[facility] Baulsmcsah8775 [place] [address]Dr. Garima Pulliam EGFR-AF EQUATORIAL GUINEAN >60 Normal >=60 [facility] Comment on above: Performed By: #### C MP, HSTROPN, BNP ####[facility] Uxkkdxmbvu5209 [place] [address]Dr. Garima Pulliam EGFR-NON AF EQUATORIAL GUINEAN >60 Normal >=60 [facility] Comment on above: Performed By: #### C MP, HSTROPN, BNP ####[facility] Srpzrxjqqc3985 [place] [address]Dr. Garima Pulliam Globulin (S) [Mass/Vol] 2.5 g/dL Normal [facility] Comment on above: Performed By: #### C MP, HSTROPN, BNP ####[facility] Ufjtmmqnoh9[address] [place], [place] [address]Dr. Garima Pulliam Glucose [Mass/Vol] 114 mg/dL Critically high 74-[address] [facility] Comment on above: Performed By: #### C MP, HSTROPN, BNP ####[facility] Rjyzvuadjq[address] [place], [place] [address]Dr. Garima Pulliam Potassium [Moles/Vol] 4.1 mmol/L Normal 3.5-5.1 [facility] Comment on above: Performed By: #### C MP, HSTROPN, BNP ####[facility] Mviwewsqcn05[address] [place], [place] [address]Dr. Garima Pulliam Protein [Mass/Vol] 6.2 g/dL Critically low 6.4-8.2 Th [facility] Comment on above: Performed By: #### C MP, HSTROPN, BNP ####[facility] Bdokwxxnvz88[address] [place], [place] [address]Dr. Yilan Pulliam Sodium [Moles/Vol] 137 mmol/L Normal 136-145 [facility] Comment on above: Performed By: #### C MP, HSTROPN, BNP ####[facility] Smgzqpffjw4889 [place] [address]Dr. Garima Pulliam Urea nitrogen [Mass/Vol] 13.0 mg/dL Normal 7.0-18.0 [facility] Comment on above: Performed By: #### C MP, HSTROPN, BNP ####[facility] Rxqtojxkwj9409 [place] [address]Dr. Garima Pulliam Urea nitrogen/Creatinine [Mass ratio] 18.1 mg/mg Normal [facility] Comment on above: Performed By: #### C MP, HSTROPN, BNP ####[facility] Zghzbkjfhc[address] [place], [place] [address]Dr. Garima Pulliam TROPONIN, HIGH SENSITIVITYon 11-27-2022 HSTROP 11.8 pg/mL Normal 4.0-76.1 [facility] Comment on above: Result Comment: CUT- OFF POINTS HAVE BEEN ESTABLISHED BASED ON THE FOURTH UNIVERSAL DEFINITIONS OF MYOCARDIALINFARCTION. THE UPPER REFERENCE LIMIT (URL) OF TROPONIN, DEFINED THE 99TH PERCENTILE OFcTnI DISTRIBUTION IN A REFERENCE POPULATION, HAS BEEN CONFIRMED THE DECISION THRESHOLDFOR [place] DIAGNOSIS. Performed By: #### C MP, HSTROPN, BNP ####[facility] Pqfxcmwydb7[address] [place], [place] [address]Dr. Garima Pulliam XR CHEST 1 Von 11-27-2022 XR CHEST 1 V Normal [facility] BNPon 11-20-2022 Natriuretic peptide B (Bld) [Mass/Vol] 73.0 pg/mL Normal <=900.0 [facility] Comment on above: Performed By: #### B MP, HSTROPN, BNP ####[facility] Yonupvqvtx[address] [place], [place] [address]Dr. Garima Pulliam CBC AUTO DIFFon 11-20-2022 BASO # 0.0 103/ul Normal 0.0-0.1 [facility] Comment on above: Performed By: #### C BC ####[facility] Bwylesavcx2971 [place] [id number]. Garima Pulliam Basophils/100 WBC (Bld) 0.3 % Normal 0.2-2.0 [facility] Comment on above: Performed By: #### C BC ####[facility] Yxcjhcfmhj2107 [place] [id number]. Garima Pulliam EO # 0.2 103/ul Normal 0.0-0.7 [facility] Comment on above: Performed By: #### C BC ####[facility] Kibvxhzbjv0964 [place] [address]Dr. Garima Pulliam Eosinophils/100 WBC (Bld) 2.1 % Normal 0.9-7.0 [facility] Comment on above: Performed By: #### C BC ####[facility] Bcwtfvzmtt44[address] [place], [place] [address]Dr. Garima Pulliam Erythrocyte distribution width (RBC) [Ratio] 13.2 % Normal 11.0-15.0 [facility] Comment on above: Performed By: #### C BC ####[facility] Zzraickhfv42[address] [place], [place] [address]Dr. Garima Pulliam Hematocrit (Bld) [Volume fraction] 43.4 % Normal 42.0-54.0 [facility] Comment on above: Performed By: #### C BC ####[facility] Cbwqfkyewi[address] [place], [place] [id number]. Garima Pulliam Hemoglobin (Bld) [Mass/Vol] 14.6 g/dL Normal 14.0-18.0 [facility] Comment on above: Performed By: #### C BC ####[facility] Chtvodelwk3456 [place] [id number]. Garima Pulliam IG # 0.02 10e3/ul Normal 0.00-0.03 [facility] Comment on above: Performed By: #### C BC ####[facility] Rqlgcvgrvf5441 [place] [address]Dr. Garima Pulliam IG % 0.2 % Normal 0.0-0.5 [facility] Comment on above: Performed By: #### C BC ####[facility] Lefsjntlfa2327 [place] [id number]. Garima Heraclio LYMPH # 2.1 103/ul Normal 1.2-3.8 [facility] Comment on above: Performed By: #### C BC ####[facility] Btxttpncuq7873 [place] [address]Dr. Garima Heraclio Lymphocytes/100 WBC (Bld) 19.2 % Critically low 20.5-60.0 [facility] Comment on above: Performed By: #### C BC ####[facility] Qydctmiakv1839 [place] [id number]. Chapisrenu Pulliam MANUAL DIFF REQ NO Normal [facility] Comment on above: Performed By: #### C BC ####[facility] Hhawhgqxkz8513 [place] [id number]. Garima Heraclio MCH (RBC) [Entitic mass] 30.4 pg Normal 25.9-34.0 [facility] Comment on above: Performed By: #### C BC ####[facility] Gbbdgwmbkf6464 [place] [address]Dr. Garima Pulliam MCHC (RBC) [Mass/Vol] 33.6 g/dL Normal 29.9-35.2 [facility] Comment on above: Performed By: #### C BC ####[facility] Uziqxkreyj2942 [place] [id number]. Garima Heraclio MCV (RBC) [Entitic vol] 90.4 fL Normal 80.0-94.0 [facility] Comment on above: Performed By: #### C BC ####[facility] Mxjztpckyy4946 [place] [id number]. Garima Heraclio MONO # 0.6 103/ul Normal 0.3-0.8 [facility] Comment on above: Performed By: #### C BC ####[facility] Krwxuvlats4135 [place] [address]Dr. Garima Heraclio Monocytes/100 WBC (Bld) 5.8 % Normal 1.7-12.0 [facility] Comment on above: Performed By: #### C BC ####[facility] Iwhwathitz3667 [place], [place] [address]Ec. Garima Pulliam NEUT # 7.8 103/ul Critically high 1.4-6.5 [facility] Comment on above: Performed By: #### C BC ####[facility] Hdxcvwvkuk2426 [place] [id number]. Garima Pulliam Neutrophils/100 WBC (Bld) 72.4 % Normal 43.0-75.0 [facility] Comment on above: Performed By: #### C BC ####[facility] Vorhreosnj5548 [place] [id number]. Garima Pulliam Platelet mean volume (Bld) [Entitic vol] 8.7 fL Critically low 9.5-13.5 [facility] Comment on above: Performed By: #### C BC ####[facility] Uulmjljite5468 [place] [id number]. Garima Pulliam PLT 184 103/ul Normal 150-450 [facility] Comment on above: Performed By: #### C BC ####[facility] Wiwmxgpbuj9489 [place], [place] [address]Mk. Garima Pulliam RBC 4.80 106/ul Normal 4.70-6.10 [facility] Comment on above: Performed By: #### C BC ####[facility] Rqojuiaywc1140 [place] [id number]. Garima Pulliam WBC 10.8 103/ul Normal 4.0-11.0 [facility] Comment on above: Performed By: #### C BC ####[facility] Xbyrgxturi2782 [place] [id number]. Garima Pulliam [facility]24 SARS-CoV-2 (COVID-19) RNA MARIE+probe Ql (Unsp spec) Not detected Normal NOT DETECTED [facility] Comment on above: Result Comment: When diagnostic [...] for this test is supported by the [employer] and [employer]'s declaration that [...] be used). Performed By: #### C VDTBH ####[facility] Ivjieenjpk[address] [place], [place] [address]Dr. Garima Pulliam INFLUENZA A AND B AGon 11-20 [facility] SEE BELOW Normal [facility] Comment on above: Result Comment: Nega tive for Flu A protein angiten. Infection due to Flu A cannot be ruled out. Flu A angiten in the sample may be below the detection limit of the test. Performed By: #### I NFLUAB ####[facility] Lawltrcpns[address] [place], [place] [address]Dr. Garima Pulliam INFLUBNEGH SEE BELOW Normal [facility] Comment on above: Result Comment: Nega tive for Flu B protein antigen. Infection due to Flu B cannot be ruled out. Flu B antigen in the sample may be below the detection limit of the test. Performed By: #### I NFLUAB ####[facility] Yxmiqmkmvu23[address] [place], [place] [address]Dr. Garima Pulliam INFLUENZA A AG Negative Normal NEGATIVE SEE COMMENT [facility] Comment on above: Performed By: #### I NFLUAB ####[facility] Scfhhwblbi[address] [place], [place] [address]Dr. Garima [facility] INFLUENZA B AG Negative Normal NEGATIVE SEE COMMENT [facility] Comment on above: Performed By: #### I NFLUAB ####[facility] Kvtigxbtcj[address] [place], [place] [address]Dr. Garima Pulliam PROF CHEM 8 (BAS METB)on Anion gap [Moles/Vol] 8.2 mmol/L Normal [facility] Comment on above: Performed By: #### B MP, HSTROPN, BNP ####[facility] Pahbryssqu34[address] [place] [address]Dr. Garima Pulliam Calcium [Mass/Vol] 8.7 mg/dL Normal 8.5-10.1 [facility] Comment on above: Performed By: #### B MP, HSTROPN, BNP ####[facility] Byedshkwbv5832 [place] [address]Dr. Garima Pulliam Chloride [Moles/Vol] 103 mmol/L Normal 98-107 [facility] Comment on above: Performed By: #### B MP, HSTROPN, BNP ####[facility] Sxqwjciwif[address] [place], [place] [address]Dr. Garima Pulliam CO2 [Moles/Vol] 29.4 mmol/L Normal 21.0-32.0 [facility] Comment on above: Performed By: #### B MP, HSTROPN, BNP ####[facility] Tjphkxoean[address] [place] [id number]. Garima Pulliam Creatinine [Mass/Vol] 0.69 mg/dL Critically low 0.70-1.30 [facility] Comment on above: Performed By: #### B MP, HSTROPN, BNP ####[facility] [address]itvsux[address] [place] [address]Dr. Garima Pulliam EGFR-AF EQUATORIAL GUINEAN >60 Normal >=60 [facility] Comment on above: Performed By: #### B MP, HSTROPN, BNP ####[facility] Rkljsaeofi[address] [place], [place] [address]Dr. Garima Pulliam EGFR-NON AF EQUATORIAL GUINEAN >60 Normal >=60 [facility] Comment on above: Performed By: #### B MP, HSTROPN, BNP ####[facility] Qiktrqxzum[address] [place] [address]Dr. Garima Pulliam Glucose [Mass/Vol] 209 mg/dL Critically high 74-[address] [facility] Comment on above: Performed By: #### B MP, HSTROPN, BNP ####[facility] Nezlsfylex[address] [place] [address]Dr. Garima Pulliam Potassium [Moles/Vol] 3.6 mmol/L Normal 3.5-5.1 [facility] Comment on above: Performed By: #### B MP, HSTROPN, BNP ####[facility] Jqsmrpshof[address] [place] [address]Dr. Garima Pulliam Sodium [Moles/Vol] 137 mmol/L Normal 136-145 [facility] Comment on above: Performed By: #### B MP, HSTROPN, BNP ####[facility] Ewfzyuokou[address] [place] [address]Dr. Garima Pulliam Urea nitrogen [Mass/Vol] 11.0 mg/dL Normal 7.0-18.0 [facility] Comment on above: Performed By: #### B MP, HSTROPN, BNP ####[facility] Tdyxotgvjy[address] [place] [address]Dr. Garima Pulliam Urea nitrogen/Creatinine [Mass ratio] 15.9 mg/mg Normal [facility] Comment on above: Performed By: #### B MP, HSTROPN, BNP ####[facility] Jfhbdvucca[address] [place] [address]Dr. Garima Pulliam TROPONIN, HIGH SENSITIVITYon 11-20-2022 HSTROP 8.7 pg/mL Normal 4.0-76.1 [facility] Comment on above: Result Comment: CUT- OFF POINTS HAVE BEEN ESTABLISHED BASED ON THE FOURTH UNIVERSAL DEFINITIONS OF MYOCARDIALINFARCTION. THE UPPER REFERENCE LIMIT (URL) OF TROPONIN, DEFINED THE 99TH PERCENTILE OFcTnI DISTRIBUTION IN A REFERENCE POPULATION, HAS BEEN CONFIRMED THE DECISION THRESHOLDFOR [place] DIAGNOSIS. Performed By: #### B MP, HSTROPN, BNP ####[facility] Gjdqaxkfeo[address] [place] [address]Dr. Garima Pulliam XR CHEST 1 Von 11-20-2022 XR CHEST 1 V Normal [facility] XR CHEST 1 Von 10-02-2022 XR CHEST 1 V Normal [facility] BNPon 09-29-2022 Natriuretic peptide B (Bld) [Mass/Vol] 107.0 pg/mL Normal <=900.0 [facility] Comment on above: Performed By: #### C MP, BNP, CMADM ####[facility] Qgwplxmwtw7[address] [place] [address]Dr. Garima Pulliam CARDIAC NASH ADMITon 022 CK [Catalytic activity/Vol] 190 U/L Normal 39-308 [facility] Comment on above: Performed By: #### C MP, BNP, CMADM ####[facility] Lwsmcpodyx35[address] [place] [address]Dr. Garima Heraclio CK.MB [Mass/Vol] 11.11 ng/mL Critically high <=3.60 [facility] Comment on above: Performed By: #### C MP, BNP, CMADM ####[facility] Fbuhhnbbgl7[address] [place] [address]Dr. Garima Pulliam HSTROP 11.8 pg/mL Normal 4.0-76.1 [facility] Comment on above: Result Comment: CUT- OFF POINTS HAVE BEEN ESTABLISHED BASED ON THE FOURTH UNIVERSAL DEFINITIONS OF MYOCARDIALINFARCTION. THE UPPER REFERENCE LIMIT (URL) OF TROPONIN, DEFINED THE 99TH PERCENTILE OFcTnI DISTRIBUTION IN A REFERENCE POPULATION, HAS BEEN CONFIRMED THE DECISION THRESHOLDFOR [place] DIAGNOSIS. Performed By: #### C MP, BNP, CMADM ####[facility] Kalgbyolse[address] [place] [address]Dr. Garima Pulliam DORIS 133 ng/mL Critically high 16-96 [facility] Comment on above: Performed By: #### C MP, BNP, CMADM ####[facility] Osipoyzjyg[address] [place] [address]Dr. Garima Heraclio CBC AUTO DIFFon 09-29-2022 BASO # 0.0 103/ul Normal 0.0-0.1 [facility] Comment on above: Performed By: #### C BC ####[facility] Uevzuqtpet28[address] [place] [address]Dr. Garima Heraclio Basophils/100 WBC (Bld) 0.2 % Normal 0.2-2.0 [facility] Comment on above: Performed By: #### C BC ####[facility] Rafqqjkrys5505 [place] [id number]. Garima Pulliam EO # 0.1 103/ul Normal 0.0-0.7 [facility] Comment on above: Performed By: #### C BC ####[facility] Fgpacufiiw4406 [place] [id number]. Garima Pulliam Eosinophils/100 WBC (Bld) 1.4 % Normal 0.9-7.0 [facility] Comment on above: Performed By: #### C BC ####[facility] Ccgdqieqqu[address] [place], [place] [address]Dr. Garima Pulliam Erythrocyte distribution width (RBC) [Ratio] 13.7 % Normal 11.0-15.0 [facility] Comment on above: Performed By: #### C BC ####[facility] Gktwffdzhu[address] [place], [place] [address]Dr. Garima Pulliam Hematocrit (Bld) [Volume fraction] 45.4 % Normal 42.0-54.0 [facility] Comment on above: Performed By: #### C BC ####[facility] Wycvaeteni86[address] [place], [place] [address]Dr. Garima Pulliam Hemoglobin (Bld) [Mass/Vol] 14.8 g/dL Normal 14.0-18.0 [facility] Comment on above: Performed By: #### C BC ####[facility] Kczcrrkrvc[address] [place], [place] [address]Dr. Garima Pulliam IG # 0.04 10e3/ul Critically high 0.00-0.03 [facility] Comment on above: Performed By: #### C BC ####[facility] Oxvtdhvizc[address] [place], [place] [address]Dr. Garima Pulliam IG % 0.5 % Normal 0.0-0.5 [facility] Comment on above: Performed By: #### C BC ####[facility] Bkkzdrulqz17[address] [place], [place] [address]Dr. Garima Pulliam LYMPH # 1.1 103/ul Critically low 1.2-3.8 [facility] Comment on above: Performed By: #### C BC ####[facility] Zabdibvhhm9946 [place] [id number]. Garima Pulliam Lymphocytes/100 WBC (Bld) 12.7 % Critically low 20.5-60.0 [facility] Comment on above: Performed By: #### C BC ####[facility] Zzvoghwpej4569 [place] [id number]. Chapisrenu Pulliam MANUAL DIFF REQ NO Normal [facility] Comment on above: Performed By: #### C BC ####[facility] Mntbrnvrnu[address] [place], [place] [id number]. Garima Heraclio MCH (RBC) [Entitic mass] 30.0 pg Normal 25.9-34.0 [facility] Comment on above: Performed By: #### C BC ####[facility] Witjyydmxt22[address] [place], [place] [address]Dr. Garima Heraclio MCHC (RBC) [Mass/Vol] 32.6 g/dL Normal 29.9-35.2 [facility] Comment on above: Performed By: #### C BC ####[facility] Z[address]hecchbba[address] [place], [place] [id number]. Garima Heraclio MCV (RBC) [Entitic vol] 91.9 fL Normal 80.0-94.0 [facility] Comment on above: Performed By: #### C BC ####[facility] Zxwawfutff[address] [place], [place] [address]Dr. Garima Pulliam MONO # 0.4 103/ul Normal 0.3-0.8 [facility] Comment on above: Performed By: #### C BC ####[facility] Zuzhzpxdzm[address] [place], [place] [id number]. Chapisrenu Pulliam Monocytes/100 WBC (Bld) 4.8 % Normal 1.7-12.0 [facility] Comment on above: Performed By: #### C BC ####[facility] Hqlpiwqafm[address] [place], [place] [id number]. Garima Pulliam NEUT # 7.1 103/ul Critically high 1.4-6.5 [facility] Comment on above: Performed By: #### C BC ####[facility] Emwgjudqbi6849 [place], [place] [address]Kf. Garima Pulliam Neutrophils/100 WBC (Bld) 80.4 % Critically high 43.0-75.0 [facility] Comment on above: Performed By: #### C BC ####[facility] Doftufzsrc5596 [place] [id number]. Garima Pulliam Platelet mean volume (Bld) [Entitic vol] 9.1 fL Critically low 9.5-13.5 [facility] Comment on above: Performed By: #### C BC ####[facility] Ezijqcnuld3826 [place] [id number]. Garima Pulliam PLT 200 103/ul Normal 150-450 [facility] Comment on above: Performed By: #### C BC ####[facility] Xuvbodzzkg9583 [place] [id number]. Garima Pulliam RBC 4.94 106/ul Normal 4.70-6.10 [facility] Comment on above: Performed By: #### C BC ####[facility] Lxzltsotsp0977 [place] [id number]. Garima Pulliam WBC 8.9 103/ul Normal 4.0-11.0 [facility] Comment on above: Performed By: #### C BC ####[facility] Urwxlanlwv4897 [place] [id number]. Garima Pulliam Covid-19 PCR (CVDTB)on SARS-CoV-2 (COVID-19) RNA MARIE+probe Ql (Unsp spec) Not detected Normal NOT DETECTED [facility] Comment on above: Result Comment: When diagnostic [...] for this test is supported by the [employer] of [employer] and [employer] Service's declaration that [...] be used). Performed By: #### C VDTBH ####[facility] Nkpedhdtxy8435 [place] [address]Dr. Garima Pulliam LACTATE/LACTIC ACIDon 2021 Lactate [Moles/Vol] 1.7 mmol/L Normal 0.4-1.9 [facility] Comment on above: Performed By: #### L ACT ####[facility] Lvbdimdfhy[address] [place], [place] [address]Dr. Garima Pulliam PROF 14(COMP METB)on 022 Albumin [Mass/Vol] 3.8 g/dL Normal 3.4-5.0 [facility] Comment on above: Performed By: #### C MP, BNP, CMADM ####[facility] Gqxjiubnbo[address] [place], [place] [address]Dr. Garima Pulliam Albumin/Globulin [Mass ratio] 1.5 {ratio} Normal [facility] Comment on above: Performed By: #### C MP, BNP, CMADM ####[facility] Pqzhrtdrfi7674 [place] [address]Dr. Garima Pulliam ALP [Catalytic activity/Vol] 62 U/L Normal 46-116 [facility] Comment on above: Performed By: #### C MP, BNP, CMADM ####[facility] Vrtcwwtvqo3643 [place] [address]Dr. Garima Pulliam ALT [Catalytic activity/Vol] 37 U/L Normal 16-63 [facility] Comment on above: Performed By: #### C MP, BNP, CMADM ####[facility] Vrgouvgnxp5021 [place] [address]Dr. Garima Pulliam Anion gap [Moles/Vol] 8.0 mmol/L Normal [facility] Comment on above: Performed By: #### C MP, BNP, CMADM ####[facility] Jryjvnovea5871 [place] [address]Dr. Garima Pulliam AST [Catalytic activity/Vol] 20 U/L Normal 15-37 [facility] Comment on above: Performed By: #### C MP, BNP, CMADM ####[facility] Voyfhlsuln4642 [place] [address]Dr. Garima Pulliam Bilirubin [Mass/Vol] 0.6 mg/dL Normal 0.2-1.0 [facility] Comment on above: Performed By: #### C MP, BNP, CMADM ####[facility] Knrfjwpmjz5053 [place] [address]Dr. Garima Pulliam Calcium [Mass/Vol] 9.1 mg/dL Normal 8.5-10.1 [facility] Comment on above: Performed By: #### C MP, BNP, CMADM ####[facility] Xymsyxmhir[address] [place], [place] [address]Dr. Garima Pulliam Chloride [Moles/Vol] 103 mmol/L Normal 98-107 [facility] Comment on above: Performed By: #### C MP, BNP, CMADM ####[facility] Qfvztsuubm[address] [place], [place] [address]Dr. Garima Pulliam CO2 [Moles/Vol] 31.8 mmol/L Normal 21.0-32.0 [facility] Comment on above: Performed By: #### C MP, BNP, CMADM ####[facility] Hzxbwfvqus[address] [place], [place] [address]Dr. Garima Pulliam Creatinine [Mass/Vol] 0.63 mg/dL Critically low 0.70-1.30 [facility] Comment on above: Performed By: #### C MP, BNP, CMADM ####[facility] Y[address]uwfhrpww[address] [place], [place] [address]Dr. Garima Pulliam EGFR-AF EQUATORIAL GUINEAN >60 Normal >=60 [facility] Comment on above: Performed By: #### C MP, BNP, CMADM ####[facility] Slzwceasjn[address] [place], [place] [address]Dr. Garima Pulliam EGFR-NON AF EQUATORIAL GUINEAN >60 Normal >=60 [facility] Comment on above: Performed By: #### C MP, BNP, CMADM ####[facility] Ozcdynmkyo8[address] [place] [address]Dr. Garima Pulliam Globulin (S) [Mass/Vol] 2.6 g/dL Normal [facility] Comment on above: Performed By: #### C MP, BNP, CMADM ####[facility] Xcrkxkveid5055 [place] [address]Dr. Garima Pulliam Glucose [Mass/Vol] 103 mg/dL Normal 74-106 [facility] Comment on above: Performed By: #### C MP, BNP, CMADM ####[facility] Guigenrvuy2785 [place] [address]Dr. Garima Pulliam Potassium [Moles/Vol] 3.8 mmol/L Normal 3.5-5.1 [facility] Comment on above: Performed By: #### C MP, BNP, CMADM ####[facility] Ejvgbfcviw7064 [place] [address]Dr. Garima Pulliam Protein [Mass/Vol] 6.4 g/dL Normal 6.4-8.2 [facility] Comment on above: Performed By: #### C MP, BNP, CMADM ####[facility] Jeumijgjye7[address] [place] [address]Dr. Garima Pulliam Sodium [Moles/Vol] 139 mmol/L Normal 136-145 [facility] Comment on above: Performed By: #### C MP, BNP, CMADM ####[facility] Hjygusuqjs6857 [place] [address]Dr. Garima Pulliam Urea nitrogen [Mass/Vol] 7.0 mg/dL Normal 7.0-18.0 [facility] Comment on above: Performed By: #### C MP, BNP, CMADM ####[facility] Vcdddoylvq0142 [place] [address]Dr. Garima Pulliam Urea nitrogen/Creatinine [Mass ratio] 11.1 mg/mg Normal [facility] Comment on above: Performed By: #### C MP, BNP, CMADM ####[facility] Ubgrnqkghx0008 [place] [address]Dr. Garima Pulliam PROTIMEon 09-29-2022 INR Coag (PPP) [Relative time] 1.14 {INR} Normal [facility] Comment on above: Performed By: #### P T, PTT ####[facility] Vbhykddtrf[address] [place], [place] [address]Dr. Garima Pulliam INR GUIDELINES SEE BELOW Normal [facility] Comment on above: Result Comment: WESLEY RED INR: 2.0 - 3.0 CONDITIONS NOT LISTED BELOW 2.5 - 3.5 FOR PROSTHETIC HEART VALVE REPLACEMENT 2.5 - 3.5 RECURRENT THROMBOSIS Performed By: #### P T, PTT ####[facility] Giuivcsffj5[address] [place], [place] [address]Dr. Garima Pulliam PT Coag (PPP) [Time] 12.2 s Critically high 9.0-11.6 [facility] Comment on above: Performed By: #### P T, PTT ####[facility] Sjxxrnfhjx[address] [place], [place] [address]Dr. Garima Pulliam PTTon 09-29-2022 aPTT Coag (Bld) [Time] 29.3 s Normal 22.3-36.2 [facility] Comment on above: Performed By: #### P T, PTT ####[facility] Obxudqnrdx98[address] [place], [place] [address]Dr. Garima Pulliam XR CHEST 1 Von 09-29-2022 XR CHEST 1 V Normal [facility] CBC AUTO DIFFon 09-26-2022 BASO # 0.0 103/ul Normal 0.0-0.1 [facility] Comment on above: Performed By: #### C BC ####[facility] Zgzyloocuu9[address] [place], [place] [address]Dr. Garima Pulliam Basophils/100 WBC (Bld) 0.2 % Normal 0.2-2.0 [facility] Comment on above: Performed By: #### C BC ####[facility] Aaqeczgdjg9[address] [place], [place] [address]Dr. Garima Pulliam EO # 0.1 103/ul Normal 0.0-0.7 [facility] Comment on above: Performed By: #### C BC ####[facility] Chdqbbtnkz[address] [place], [place] [address]Dr. Garima Pulliam Eosinophils/100 WBC (Bld) 1.0 % Normal 0.9-7.0 [facility] Comment on above: Performed By: #### C BC ####[facility] Vcsztjqbvh2[address] [place], [place] [address]Dr. Garima Pulliam Erythrocyte distribution width (RBC) [Ratio] 13.4 % Normal 11.0-15.0 [facility] Comment on above: Performed By: #### C BC ####[facility] Mwnxyyfpbt[address] [place], [place] [address]Dr. Garima Pulliam Hematocrit (Bld) [Volume fraction] 46.3 % Normal 42.0-54.0 [facility] Comment on above: Performed By: #### C BC ####[facility] Hlihqbykah[address] [place], [place] [address]Dr. Garima Pulliam Hemoglobin (Bld) [Mass/Vol] 15.3 g/dL Normal 14.0-18.0 [facility] Comment on above: Performed By: #### C BC ####[facility] Ugolutvcxj6[address] [place], [place] [address]Dr. Garima Pulliam IG # 0.05 10e3/ul Critically high 0.00-0.03 [facility] Comment on above: Performed By: #### C BC ####[facility] Ayinbpvdji0[address] [place], [place] [address]Dr. Garima Pulliam IG % 0.4 % Normal 0.0-0.5 [facility] Comment on above: Performed By: #### C BC ####[facility] Rspndrwlhq8[address] [place], [place] [address]Dr. Garima Pulliam LYMPH # 1.7 103/ul Normal 1.2-3.8 [facility] Comment on above: Performed By: #### C BC ####[facility] Rfeqdyluly4[address] [place], [place] [address]Dr. Garima Pulliam Lymphocytes/100 WBC (Bld) 12.7 % Critically low 20.5-60.0 [facility] Comment on above: Performed By: #### C BC ####[facility] Qgfxqhvwje0533 [place] [address]DrAdalberto Pulliam MANUAL DIFF REQ NO Normal [facility] Comment on above: Performed By: #### C BC ####[facility] Tghmcojbde2548 [place] [address]Dr. Garima Pulliam MCH (RBC) [Entitic mass] 30.1 pg Normal 25.9-34.0 [facility] Comment on above: Performed By: #### C BC ####[facility] Pccqwrftyo[address] [place], [place] [address]Dr. Garima Pulliam MCHC (RBC) [Mass/Vol] 33.0 g/dL Normal 29.9-35.2 [facility] Comment on above: Performed By: #### C BC ####[facility] Iologohmqc32[address] [place], [place] [address]DrAdalberto Pulliam MCV (RBC) [Entitic vol] 91.1 fL Normal 80.0-94.0 [facility] Comment on above: Performed By: #### C BC ####[facility] Hcvnjujzpe[address] [place], [place] [address]DrAdalberto Pulliam MONO # 0.9 103/ul Critically high 0.3-0.8 [facility] Comment on above: Performed By: #### C BC ####[facility] Wokomujvwt[address] [place], [place] [address]DrAdalberto Pulliam Monocytes/100 WBC (Bld) 7.0 % Normal 1.7-12.0 [facility] Comment on above: Performed By: #### C BC ####[facility] Ggjsdxugkf[address] [place], [place] [address]DrAdalberto Pulliam NEUT # 10.4 103/ul Critically high 1.4-6.5 [facility] Comment on above: Performed By: #### C BC ####[facility] Natdtqfczc[address] [place], [place] [address]DrAdalberto Pulliam Neutrophils/100 WBC (Bld) 78.7 % Critically high 43.0-75.0 [facility] Comment on above: Performed By: #### C BC ####[facility] Uxqqteihuw4905 [place] [address]Dr. Garima Pulliam Platelet mean volume (Bld) [Entitic vol] 8.9 fL Critically low 9.5-13.5 [facility] Comment on above: Performed By: #### C BC ####[facility] Ctenlirbhz4531 [place] [address]Dr. Garima Pulliam PLT 195 103/ul Normal 150-450 [facility] Comment on above: Performed By: #### C BC ####[facility] Wtxnggqupa[address] [place], [place] [address]Dr. Garima Pulliam RBC 5.08 106/ul Normal 4.70-6.10 [facility] Comment on above: Performed By: #### C BC ####[facility] Qxhrwaggaf[address] [place], [place] [address]Dr. Garima Pulliam WBC 13.2 103/ul Critically high 4.0-11.0 [facility] Comment on above: Performed By: #### C BC ####[facility] Yqojhveqml[address] [place], [place] [address]Dr. Garima Pulliam PROF 14(COMP METB)on 022 Albumin [Mass/Vol] 3.5 g/dL Normal 3.4-5.0 [facility] Comment on above: Performed By: #### C DAVID HSTROPN ####[facility] Vgyinhnffy6[address] [place] [address]Dr. Garima Pulliam Albumin/Globulin [Mass ratio] 1.2 {ratio} Normal [facility] Comment on above: Performed By: #### C RAFAT HERNANDEZTROPN ####[facility] Ohsnobistb9763 [place] [address]Dr. Garima Pulliam ALP [Catalytic activity/Vol] 71 U/L Normal 46-116 [facility] Comment on above: Performed By: #### C DAVID HSTROPN ####[facility] Ygupahhrks0154 [place] [address]Dr. Garima Pulliam ALT [Catalytic activity/Vol] 37 U/L Normal 16-63 [facility] Comment on above: Performed By: #### C DAVID, HSTROPN ####[facility] Dskbvvwmqa8830 [place] [address]Dr. Garima Pulliam Anion gap [Moles/Vol] 4.8 mmol/L Normal [facility] Comment on above: Performed By: #### C DAVID, HSTROPN ####[facility] Vnbteaztea[address] [place], [place] [address]Dr. Garima Pulliam AST [Catalytic activity/Vol] 21 U/L Normal 15-37 [facility] Comment on above: Performed By: #### C DAVID, HSTROPN ####[facility] Asoentmsvq0[address] [place], [place] [address]Dr. Garima Pulliam Bilirubin [Mass/Vol] 0.3 mg/dL Normal 0.2-1.0 [facility] Comment on above: Performed By: #### C DAVID, HSTROPN ####[facility] Qycllulfgo4076 [place] [address]Dr. Garima Pulliam Calcium [Mass/Vol] 8.9 mg/dL Normal 8.5-10.1 [facility] Comment on above: Performed By: #### C DAVID, HSTROPN ####[facility] Jsuvdfpger55[address] [place] [address]Dr. Garima Pulliam Chloride [Moles/Vol] 106 mmol/L Normal 98-107 [facility] Comment on above: Performed By: #### C DAVID, HSTROPN ####[facility] Xrroxnnavg5033 [place] [address]Dr. Garima Pulliam CO2 [Moles/Vol] 29.8 mmol/L Normal 21.0-32.0 [facility] Comment on above: Performed By: #### C DAVID, HSTROPN ####[facility] Bqzvlljalu4021 [place] [address]Dr. Garima Pulliam Creatinine [Mass/Vol] 0.68 mg/dL Critically low 0.70-1.30 [facility] Comment on above: Performed By: #### C MP, HSTROPN ####[facility] Eamfulqphs04[address] [place] [address]Dr. Garima Pulliam EGFR-AF EQUATORIAL GUINEAN >60 Normal >=60 [facility] Comment on above: Performed By: #### C MP, HSTROPN ####[facility] Pmpvglszim5077 [place] [address]Dr. Chapislan Pulliam EGFR-NON AF EQUATORIAL GUINEAN >60 Normal >=60 [facility] Comment on above: Performed By: #### C MP, HSTROPN ####[facility] Gitckwqisk8864 [place] [address]Dr. Garima Pulliam Globulin (S) [Mass/Vol] 2.8 g/dL Normal [facility] Comment on above: Performed By: #### C MP, HSTROPN ####[facility] Kzhmvlfwgi5455 [place] [address]Dr. Garima Pulliam Glucose [Mass/Vol] 133 mg/dL Critically high 74-106 [facility] Comment on above: Performed By: #### C MP, HSTROPN ####[facility] Khggtjcyvg3312 [place] [address]Dr. Chapisrenu Pulliam Potassium [Moles/Vol] 3.6 mmol/L Normal 3.5-5.1 [facility] Comment on above: Performed By: #### C MP, HSTROPN ####[facility] Rkzclshber2415 [place] [address]Dr. Chapisrenu Pulliam Protein [Mass/Vol] 6.3 g/dL Critically low 6.4-8.2 [facility] Comment on above: Performed By: #### C MP, HSTROPN ####[facility] Cl[address]auzhql[address] [place], [place] [address]Dr. Chapisrenu Pulliam Sodium [Moles/Vol] 137 mmol/L Normal 136-145 [facility] Comment on above: Performed By: #### C MP, HSTROPN ####[facility] Ulyxiwlwlk[address] [place], [place] [address]Dr. Garima Pulliam Urea nitrogen [Mass/Vol] 15.0 mg/dL Normal 7.0-18.0 [facility] Comment on above: Performed By: #### C DAVID HSTROPN ####[facility] Jpfuhricwu9[address] [place] [address]Dr. Chapisrenu Pulliam Urea nitrogen/Creatinine [Mass ratio] 22.1 mg/mg Normal [facility] Comment on above: Performed By: #### C DAVID HSTROPN ####[facility] Lnltdvupkn78[address] [place] [address]Dr. Garima Heraclio TROPONIN, HIGH SENSITIVITYon 09-26-2022 HSTROP 12.8 pg/mL Normal 4.0-76.1 [facility] Comment on above: Result Comment: CUT- OFF POINTS HAVE BEEN ESTABLISHED BASED ON THE FOURTH UNIVERSAL DEFINITIONS OF MYOCARDIALINFARCTION. THE UPPER REFERENCE LIMIT (URL) OF TROPONIN, DEFINED THE 99TH PERCENTILE OFcTnI DISTRIBUTION IN A REFERENCE POPULATION, HAS BEEN CONFIRMED THE DECISION THRESHOLDFOR [place] DIAGNOSIS. Performed By: #### C DAVID HSTROPN ####[facility] Reimwujnoh86[address] [place] [address]Dr. Chapisrenu Pulliam XR CHEST 1 Von 09-26-2022 XR CHEST 1 V Normal [facility] XR CHEST 1 Von 09-16-2022 XR CHEST 1 V Normal [facility] CBC AUTO DIFFon 09-15-2022 BASO # 0.0 103/ul Normal 0.0-0.1 [facility] Comment on above: Performed By: #### C BC ####[facility] S[address]xuhrkxs[address] [place] [address]Dr. Garima Heraclio Basophils/100 WBC (Bld) 0.1 % Critically low 0.2-2.0 [facility] Comment on above: Performed By: #### C BC ####[facility] Qdqqvvfrcn7136 [place] [address]Dr. Garima Pulliam EO # 0.0 103/ul Normal 0.0-0.7 [facility] Comment on above: Performed By: #### C BC ####[facility] Atjzjrpcho[address] [place] [address]Dr. Garima Pulliam Eosinophils/100 WBC (Bld) 0.1 % Critically low 0.9-7.0 [facility] Comment on above: Performed By: #### C BC ####[facility] Leulsltngc96[address] [place] [address]Dr. Garima Pulliam Erythrocyte distribution width (RBC) [Ratio] 14.1 % Normal 11.0-15.0 [facility] Comment on above: Performed By: #### C BC ####[facility] Qkrxdooalr[address] [place], [place] [address]Dr. Garima Pulliam Hematocrit (Bld) [Volume fraction] 46.1 % Normal 42.0-54.0 [facility] Comment on above: Performed By: #### C BC ####[facility] Azuykghzio[address] [place], [place] [address]Dr. Garima Pulliam Hemoglobin (Bld) [Mass/Vol] 15.0 g/dL Normal 14.0-18.0 [facility] Comment on above: Performed By: #### C BC ####[facility] Ugcbsjnhys[address] [place], [place] [address]Dr. Garima Pulliam IG # 0.03 10e3/ul Normal 0.00-0.03 [facility] Comment on above: Performed By: #### C BC ####[facility] Hdobbgobwk[address] [place], [place] [address]Dr. Garima Pulliam IG % 0.3 % Normal 0.0-0.5 [facility] Comment on above: Performed By: #### C BC ####[facility] Bbarhtfwfr4[address] [place], [place] [address]Dr. Garima Pulliam LYMPH # 0.6 103/ul Critically low 1.2-3.8 The [facility] Comment on above: Performed By: #### C BC ####[facility] Jcmledmtba45[address] [place], [place] [address]Dr. Garima Pulliam Lymphocytes/100 WBC (Bld) 5.8 % Critically low 20.5-60.0 [facility] Comment on above: Performed By: #### C BC ####[facility] Afxstgjaer3320 [place] [id number]. Garima Pulliam MANUAL DIFF REQ NO Normal [facility] Comment on above: Performed By: #### C BC ####[facility] Jeamdhcwqf4318 [place] [id number]. Garima Pulliam MCH (RBC) [Entitic mass] 30.2 pg Normal 25.9-34.0 [facility] Comment on above: Performed By: #### C BC ####[facility] Moxjghrdfv00[address] [place] [address]Dr. Garima Pulliam MCHC (RBC) [Mass/Vol] 32.5 g/dL Normal 29.9-35.2 [facility] Comment on above: Performed By: #### C BC ####[facility] Rxbxnqzyih54[address] [place] [address]Dr. Garima Pulliam MCV (RBC) [Entitic vol] 92.8 fL Normal 80.0-94.0 [facility] Comment on above: Performed By: #### C BC ####[facility] Xkyozzebqm7857 [place] [address]Dr. Garima Heraclio MONO # 0.3 103/ul Normal 0.3-0.8 [facility] Comment on above: Performed By: #### C BC ####[facility] Wtrdvxxtge0354 [place] [id number]. Garima Heraclio Monocytes/100 WBC (Bld) 3.2 % Normal 1.7-12.0 [facility] Comment on above: Performed By: #### C BC ####[facility] Qqszsmgtfb2059 [place] [id number]. Garima Pulliam NEUT # 9.8 103/ul Critically high 1.4-6.5 [facility] Comment on above: Performed By: #### C BC ####[facility] Bsmdsegtvl2003 [place] [id number]. Garima Pulliam Neutrophils/100 WBC (Bld) 90.5 % Critically high 43.0-75.0 [facility] Comment on above: Performed By: #### C BC ####[facility] Ppgaxsvyln3962 [place] [id number]. Garima Pulliam Platelet mean volume (Bld) [Entitic vol] 9.4 fL Critically low 9.5-13.5 [facility] Comment on above: Performed By: #### C BC ####[facility] Okszdzglxv2035 [place] [id number]. Garima Pulliam PLT 208 103/ul Normal 150-450 [facility] Comment on above: Performed By: #### C BC ####[facility] Gnssafjswk3774 [place] [address]Dr. Garima Pulliam RBC 4.97 106/ul Normal 4.70-6.10 [facility] Comment on above: Performed By: #### C BC ####[facility] Mmdliytqwf2296 [place] [address]Dr. Garima Pulliam WBC 10.8 103/ul Normal 4.0-11.0 [facility] Comment on above: Performed By: #### C BC ####[facility] Xqadoqkckd0667 [place] [address]Dr. Garima Pulliam PROF 14(COMP METB)on 022 Albumin [Mass/Vol] 4.0 g/dL Normal 3.4-5.0 [facility] Comment on above: Performed By: #### C MP ####[facility] Fxshxanymd6660 [place] [address]Dr. Garima Pulliam Albumin/Globulin [Mass ratio] 1.5 {ratio} Normal [facility] Comment on above: Performed By: #### C MP ####[facility] Ikdvywobzg7555 [place] [address]Dr. Garima Pulliam ALP [Catalytic activity/Vol] 73 U/L Normal 46-116 [facility] Comment on above: Performed By: #### C MP ####[facility] Ztidlonbeb8229 [place] [address]Dr. Garima Pulliam ALT [Catalytic activity/Vol] 42 U/L Normal 16-63 [facility] Comment on above: Performed By: #### C MP ####[facility] Sbiziflxmn4086 [place] [address]Dr. Garima Pulliam Anion gap [Moles/Vol] 9.1 mmol/L Normal [facility] Comment on above: Performed By: #### C MP ####[facility] Vsfgvcittc[address] [place], [place] [address]Dr. Garima Pulliam AST [Catalytic activity/Vol] 28 U/L Normal 15-37 [facility] Comment on above: Performed By: #### C MP ####[facility] Naiabstsgq6[address] [place], [place] [address]Dr. Garima Pulliam Bilirubin [Mass/Vol] 0.6 mg/dL Normal 0.2-1.0 [facility] Comment on above: Performed By: #### C MP ####[facility] Mjqlfnrnmn46[address] [place], [place] [address]Dr. Garima Pulliam Calcium [Mass/Vol] 8.6 mg/dL Normal 8.5-10.1 [facility] Comment on above: Performed By: #### C MP ####[facility] Qgrwlbndzg99[address] [place], [place] [address]Dr. Garima Pulliam Chloride [Moles/Vol] 105 mmol/L Normal 98-107 [facility] Comment on above: Performed By: #### C MP ####[facility] Rqdoctknmp8398[address] [place], [place] [address]Dr. Garima Pulliam CO2 [Moles/Vol] 28.5 mmol/L Normal 21.0-32.0 [facility] Comment on above: Performed By: #### C MP ####[facility] Ewmjjbpsyk9[address] [place], [place] [address]Dr. Garima Heraclio Creatinine [Mass/Vol] 0.78 mg/dL Normal 0.70-1.30 [facility] Comment on above: Performed By: #### C MP ####[facility] Jioguvbbgt4730[address] [place], [place] [address]Dr. Chapisrenu Heraclio EGFR-AF EQUATORIAL GUINEAN >60 Normal >=60 [facility] Comment on above: Performed By: #### C MP ####[facility] Ijhpgdfzka5069[address] [place], [place] [address]Dr. Garima Pulliam EGFR-NON AF EQUATORIAL GUINEAN >60 Normal >=60 [facility] Comment on above: Performed By: #### C MP ####[facility] Ymyertmlbk4006 [place] [address]Dr. Garima Pulliam Globulin (S) [Mass/Vol] 2.7 g/dL Normal [facility] Comment on above: Performed By: #### C MP ####[facility] Qyusfxaizi4596 [place] [address]Dr. Garima Pulliam Glucose [Mass/Vol] 220 mg/dL Critically high 74-[address] [facility] Comment on above: Performed By: #### C MP ####[facility] Gyrkpcrvjp0791 [place] [address]Dr. Garima Pulliam Potassium [Moles/Vol] 3.6 mmol/L Normal 3.5-5.1 [facility] Comment on above: Performed By: #### C MP ####[facility] Ecnxyfaugt8[address] [place], [place] [address]Dr. Garima Pulliam Protein [Mass/Vol] 6.7 g/dL Normal 6.4-8.2 [facility] Comment on above: Performed By: #### C MP ####[facility] Wyttqhvoaf87[address] [place], [place] [address]Dr. Garima Pulliam Sodium [Moles/Vol] 139 mmol/L Normal 136-145 [facility] Comment on above: Performed By: #### C MP ####[facility] Pxvrsmbrro[address] [place], [place] [address]Dr. Garima Pulliam Urea nitrogen [Mass/Vol] 11.0 mg/dL Normal 7.0-18.0 [facility] Comment on above: Performed By: #### C MP ####[facility] Ikjtbuntle55[address] [place], [place] [address]Dr. Garima Pulliam Urea nitrogen/Creatinine [Mass ratio] 14.1 mg/mg Normal [facility] Comment on above: Performed By: #### C MP ####[facility] Aljvfukwor[address] [place], [place] [address]Dr. Garima Pulliam CARDIAC NASH 3-6on 2 CK [Catalytic activity/Vol] 240 U/L Normal 39-308 [facility] Comment on above: Performed By: #### C MREP ####[facility] Pxctkfvriy5[address] [place] [address]Dr. Garima Pulliam CK.MB [Mass/Vol] 10.38 ng/mL Critically high <=3.60 [facility] Comment on above: Performed By: #### C MREP ####[facility] Ypwnvbrwpj7447 [place] [address]Dr. Garima Pulliam HSTROP 18.5 pg/mL Normal 4.0-76.1 [facility] Comment on above: Result Comment: CUT- OFF POINTS HAVE BEEN ESTABLISHED BASED ON THE FOURTH UNIVERSAL DEFINITIONS OF MYOCARDIALINFARCTION. THE UPPER REFERENCE LIMIT (URL) OF TROPONIN, DEFINED THE 99TH PERCENTILE OFcTnI DISTRIBUTION IN A REFERENCE POPULATION, HAS BEEN CONFIRMED THE DECISION [place]RESHOLDFOR [place] DIAGNOSIS. Performed By: #### C MREP ####[facility] Ufbjqwwxde2084 [place] [address]Dr. Garima Pluliam CK [Catalytic activity/Vol] 257 U/L Normal 39-308 [facility] Comment on above: Performed By: #### C MREP ####[facility] Zwzqpmxfni[address] [place], [place] [address]Dr. Garima Pulliam CK.MB [Mass/Vol] 9.89 ng/mL Critically high <=3.60 [facility] Comment on above: Performed By: #### C MREP ####[facility] Cuuhedbqjh[address] [place], [place] [address]Dr. Garima Pulliam HSTROP 16.9 pg/mL Normal 4.0-76.1 [facility] Comment on above: Result Comment: CUT- OFF POINTS HAVE BEEN ESTABLISHED BASED ON THE FOURTH UNIVERSAL DEFINITIONS OF MYOCARDIALINFARCTION. THE UPPER REFERENCE LIMIT (URL) OF TROPONIN, DEFINED THE 99TH PERCENTILE OFcTnI DISTRIBUTION IN A REFERENCE POPULATION, HAS BEEN CONFIRMED THE DECISION THRESHOLDFOR [place] DIAGNOSIS. Performed By: #### C MREP ####[facility] Zuczcwdnvg0087 [place] [address]Dr. Garima Heraclio CBC AUTO DIFFon 10-22-2022 BASO # 0.0 103/ul Normal 0.0-0.1 [facility] Comment on above: Performed By: #### C BC ####[facility] Zpdctooxeo0511 [place] [id number]. Garima Pulliam Basophils/100 WBC (Bld) 0.1 % Critically low 0.2-2.0 [facility] Comment on above: Performed By: #### C BC ####[facility] Ixxtagjmgh0899 [place] [address]Dr. Garima Pulliam EO # 0.0 103/ul Normal 0.0-0.7 [facility] Comment on above: Performed By: #### C BC ####[facility] Xdkrmyxzuo39[address] [place], [place] [address]Dr. Chapisrenu Heraclio Eosinophils/100 WBC (Bld) 0.0 % Critically low 0.9-7.0 [facility] Comment on above: Performed By: #### C BC ####[facility] Kufpcbqthl218[address] [place], [place] [address]Dr. Garima Pulliam Erythrocyte distribution width (RBC) [Ratio] 13.6 % Normal 11.0-15.0 [facility] Comment on above: Performed By: #### C BC ####[facility] Xgdmrsjdng4[address] [place], [place] [address]Dr. Garima Pulliam Hematocrit (Bld) [Volume fraction] 48.2 % Normal 42.0-54.0 [facility] Comment on above: Performed By: #### C BC ####[facility] Sbwpmkymqu964[address] [place], [place] [address]Dr. Garima Pulliam Hemoglobin (Bld) [Mass/Vol] 16.0 g/dL Normal 14.0-18.0 [facility] Comment on above: Performed By: #### C BC ####[facility] Hninqcgfzj[address] [place], [place] [address]Dr. Chapisrenu Heraclio IG # 0.02 10e3/ul Normal 0.00-0.03 [facility] Comment on above: Performed By: #### C BC ####[facility] Aasvbnakgj8460 [place] [id number]. Garima Pulliam IG % 0.3 % Normal 0.0-0.5 [facility] Comment on above: Performed By: #### C BC ####[facility] Iyarlzuzzx4286 [place] [address]Dr. Garima Heraclio LYMPH # 0.5 103/ul Critically low 1.2-3.8 The [facility] Comment on above: Performed By: #### C BC ####[facility] Jdkxnyxkfy8463 [place] [address]Dr. Garima Heraclio Lymphocytes/100 WBC (Bld) 7.7 % Critically low 20.5-60.0 [facility] Comment on above: Performed By: #### C BC ####[facility] Fykmrzdxjr[address] [place], [place] [address]Dr. Chapisrenu Pulliam MANUAL DIFF REQ NO Normal [facility] Comment on above: Performed By: #### C BC ####[facility] Uquldxxkth9[address] [place], [place] [address]Dr. Garima Heraclio MCH (RBC) [Entitic mass] 30.6 pg Normal 25.9-34.0 [facility] Comment on above: Performed By: #### C BC ####[facility] Qdweocjusv66[address] [place], [place] [address]Dr. Garima Pulliam MCHC (RBC) [Mass/Vol] 33.2 g/dL Normal 29.9-35.2 [facility] Comment on above: Performed By: #### C BC ####[facility] Yyzoxpfeiw[address] [place], [place] [address]Dr. Garima Heraclio MCV (RBC) [Entitic vol] 92.2 fL Normal 80.0-94.0 [facility] Comment on above: Performed By: #### C BC ####[facility] Ccxmvubptr9[address] [place], [place] [address]Dr. Garima Pulliam MONO # 0.0 103/ul Critically low 0.3-0.8 [facility] Comment on above: Performed By: #### C BC ####[facility] Jqzqtaubkq5071 [place] [id number]. Garima Pulliam Monocytes/100 WBC (Bld) 0.4 % Critically low 1.7-12.0 [facility] Comment on above: Performed By: #### C BC ####[facility] Cuwvinavgi8834 [place] [id number]. Garima Pulliam NEUT # 6.2 103/ul Normal 1.4-6.5 [facility] Comment on above: Performed By: #### C BC ####[facility] Eqigsevzmd4880 [place] [address]Dr. Garima Pulliam Neutrophils/100 WBC (Bld) 91.5 % Critically high 43.0-75.0 [facility] Comment on above: Performed By: #### C BC ####[facility] Nigcarcbpp7730 [place] [address]Dr. Garima Pulliam Platelet mean volume (Bld) [Entitic vol] 8.7 fL Critically low 9.5-13.5 [facility] Comment on above: Performed By: #### C BC ####[facility] Qkrmojgooq4590 [place] [address]Dr. Garima Pulliam PLT 179 103/ul Normal 150-450 [facility] Comment on above: Performed By: #### C BC ####[facility] Tlyyjnkvzm0189 [place] [id number]. Garima Pulliam RBC 5.23 106/ul Normal 4.70-6.10 [facility] Comment on above: Performed By: #### C BC ####[facility] Wbhtraffgj1450 [place] [address]Dr. Garima Pulliam WBC 6.7 103/ul Normal 4.0-11.0 [facility] Comment on above: Performed By: #### C BC ####[facility] Ppiqxvpzbg4660 [place] [address]Dr. Garima Pulliam PROF CHEM 8 (BAS METB)on Anion gap [Moles/Vol] 12.1 mmol/L Normal [facility] Comment on above: Performed By: #### B MP ####[facility] Hgfjamcbhc3929 [place] [id number]. Garima Pulliam Calcium [Mass/Vol] 8.7 mg/dL Normal 8.5-10.1 [facility] Comment on above: Performed By: #### B MP ####[facility] Osppnqwwyj2425 [place] [id number]. Garima Pulliam Chloride [Moles/Vol] 105 mmol/L Normal 98-107 [facility] Comment on above: Performed By: #### B MP ####[facility] Ufilovlzpc7458 [place] [id number]. Garima Pulliam CO2 [Moles/Vol] 25.5 mmol/L Normal 21.0-32.0 [facility] Comment on above: Performed By: #### B MP ####[facility] Zjbglhrhil4845 [place] [address]Dr. Garima Pulliam Creatinine [Mass/Vol] 0.63 mg/dL Critically low 0.70-1.30 [facility] Comment on above: Performed By: #### B MP ####[facility] Zdvhqedfiu6808 [place] [address]Dr. Garima Pulliam EGFR-AF EQUATORIAL GUINEAN >60 Normal >=60 [facility] Comment on above: Performed By: #### B MP ####[facility] Cjbrhmpvxn8279 [place] [address]Dr. Garima Pulliam EGFR-NON AF EQUATORIAL GUINEAN >60 Normal >=60 [facility] Comment on above: Performed By: #### B MP ####[facility] Zbiefbmcab0686 [place] [address]Dr. Garima Pulliam Glucose [Mass/Vol] 162 mg/dL Critically high 74-106 [facility] Comment on above: Performed By: #### B MP ####[facility] Rgautmojnn4[address] [place], [place] [address]Dr. Garima Pulliam Potassium [Moles/Vol] 3.6 mmol/L Normal 3.5-5.1 [facility] Comment on above: Performed By: #### B MP ####[facility] Kvoivsvoif18[address] [place], [place] [address]Dr. Garima Pulliam Sodium [Moles/Vol] 139 mmol/L Normal 136-145 [facility] Comment on above: Performed By: #### B DAVID ####[facility] Mgyfhxezwc7065 [place] [address]Dr. Garima Pulliam Urea nitrogen [Mass/Vol] 9.0 mg/dL Normal 7.0-18.0 [facility] Comment on above: Performed By: #### B DAVID ####[facility] Hbgnfkixdi1582 [place] [address]Dr. Garima Pulliam Urea nitrogen/Creatinine [Mass ratio] 14.3 mg/mg Normal [facility] Comment on above: Performed By: #### B DAVID ####[facility] Gsewrckknx2661 [place] [address]Dr. Chapisrenu Pulliam CARDIAC NASH ADMITon 09-12- 022 CK [Catalytic activity/Vol] 304 U/L Normal 39-308 [facility] Comment on above: Performed By: #### B NANCY HERNANDEZ ####[facility] Gsqsyswpdt9203 [place] [address]Dr. Garima Pulliam CK.MB [Mass/Vol] 11.81 ng/mL Critically high <=3.60 [facility] Comment on above: Performed By: #### B NANCY HERNANDEZ ####[facility] Xuytxkrmth9475 [place] [address]Dr. Garima Heraclio HSTROP 13.3 pg/mL Normal 4.0-76.1 [facility] Comment on above: Result Comment: CUT- OFF POINTS HAVE BEEN ESTABLISHED BASED ON THE FOURTH UNIVERSAL DEFINITIONS OF MYOCARDIALINFARCTION. THE UPPER REFERENCE LIMIT (URL) OF TROPONIN, DEFINED THE 99TH PERCENTILE OFcTnI DISTRIBUTION IN A REFERENCE POPULATION, HAS BEEN CONFIRMED THE DECISION THRESHOLDFOR [place] DIAGNOSIS. Performed By: #### B NANCY HERNANDEZ ####[facility] Xtaowazddo9047 [place] [address]Dr. Garima Pulliam DORIS 133 ng/mL Critically high 16-96 [facility] Comment on above: Performed By: #### B NANCY HERNANDEZ ####[facility] Taeywpgtlc1812 [place] [address]Dr. Garima Pulliam CBC AUTO DIFFon 09-12-2022 BASO # 0.0 103/ul Normal 0.0-0.1 [facility] Comment on above: Performed By: #### C BC ####[facility] Xvoavodwwj[address] [place], [place] [id number]. Garima Heraclio Basophils/100 WBC (Bld) 0.2 % Normal 0.2-2.0 [facility] Comment on above: Performed By: #### C BC ####[facility] Qxjykhxzdf8[address] [place], [place] [address]Dr. Garima Heraclio EO # 0.2 103/ul Normal 0.0-0.7 [facility] Comment on above: Performed By: #### C BC ####[facility] Byyqyggyuj4[address] [place], [place] [address]Dr. Chapisrenu Pulliam Eosinophils/100 WBC (Bld) 1.3 % Normal 0.9-7.0 [facility] Comment on above: Performed By: #### C BC ####[facility] Jwjjwkkkwv9[address] [place], [place] [address]Dr. Garima Pulliam Erythrocyte distribution width (RBC) [Ratio] 13.7 % Normal 11.0-15.0 [facility] Comment on above: Performed By: #### C BC ####[facility] Cvlpfxubim38[address] [place], [place] [address]Dr. Garima Pulliam Hematocrit (Bld) [Volume fraction] 46.4 % Normal 42.0-54.0 [facility] Comment on above: Performed By: #### C BC ####[facility] Uhyasqqwbn110[address] [place], [place] [address]Dr. Garima Pulliam Hemoglobin (Bld) [Mass/Vol] 15.7 g/dL Normal 14.0-18.0 [facility] Comment on above: Performed By: #### C BC ####[facility] Lwlvqistwg17[address] [place], [place] [address]Dr. Garima Pulliam IG # 0.04 10e3/ul Critically high 0.00-0.03 [facility] Comment on above: Performed By: #### C BC ####[facility] Irvmjrjiah3092 [place] [id number]. Garima Pulliam IG % 0.3 % Normal 0.0-0.5 [facility] Comment on above: Performed By: #### C BC ####[facility] Xkcwbiwgmn4272 [place] [address]Dr. Garima Pulliam LYMPH # 1.7 103/ul Normal 1.2-3.8 [facility] Comment on above: Performed By: #### C BC ####[facility] Sbswukarwj7311 [place] [address]Dr. Garima Pulliam Lymphocytes/100 WBC (Bld) 11.5 % Critically low 20.5-60.0 [facility] Comment on above: Performed By: #### C BC ####[facility] Mnbhgdocom0632 [place] [id number]. Garima Pulliam MANUAL DIFF REQ NO Normal [facility] Comment on above: Performed By: #### C BC ####[facility] Heaunsuzpb0873 [place] [id number]. Garima Pulliam MCH (RBC) [Entitic mass] 31.0 pg Normal 25.9-34.0 [facility] Comment on above: Performed By: #### C BC ####[facility] Mrtgobytgh4538 [place] [id number]. Garima Pulliam MCHC (RBC) [Mass/Vol] 33.8 g/dL Normal 29.9-35.2 [facility] Comment on above: Performed By: #### C BC ####[facility] Gpbsurzepy6821 [place] [address]Dr. Garima Pulliam MCV (RBC) [Entitic vol] 91.7 fL Normal 80.0-94.0 [facility] Comment on above: Performed By: #### C BC ####[facility] Uyrcgcixbk1404 [place] [id number]. Garima Heraclio MONO # 0.8 103/ul Normal 0.3-0.8 [facility] Comment on above: Performed By: #### C BC ####[facility] Xufkmnxeeq2553 [place] [address]Dr. Garima Pulliam Monocytes/100 WBC (Bld) 5.2 % Normal 1.7-12.0 [facility] Comment on above: Performed By: #### C BC ####[facility] Eudiabzkrb3847 [place] [id number]. Garima Pulliam NEUT # 11.7 103/ul Critically high 1.4-6.5 [facility] Comment on above: Performed By: #### C BC ####[facility] Boarwryiip8497 [place] [address]Dr. Garima Pulliam Neutrophils/100 WBC (Bld) 81.5 % Critically high 43.0-75.0 [facility] Comment on above: Performed By: #### C BC ####[facility] Gesazcaswi8633 [place] [address]Dr. Garima Pulliam Platelet mean volume (Bld) [Entitic vol] 8.6 fL Critically low 9.5-13.5 [facility] Comment on above: Performed By: #### C BC ####[facility] Mcroldufcq4807 [place] [id number]. Garima Pulliam PLT 191 103/ul Normal 150-450 [facility] Comment on above: Performed By: #### C BC ####[facility] Kcpgxxrtcd[address] [place], [place] [id number]. Garima Pulliam RBC 5.06 106/ul Normal 4.70-6.10 [facility] Comment on above: Performed By: #### C BC ####[facility] Xqtpolrdqk[address] [place], [place] [id number]. Garima Pulliam WBC 14.4 103/ul Critically high 4.0-11.0 [facility] Comment on above: Performed By: #### C BC ####[facility] Fopkxhljin85[address] [place], [place] [address]Dr. Garima Pulliam [facility]24 SARS-CoV-2 (COVID-19) RNA MARIE+probe Ql (Unsp spec) Not detected Normal NOT DETECTED [facility] Comment on above: Result Comment: When [...] for this test is supported by the [employer]'s declaration that [...] be used). Performed By: #### C VDTBH ####[facility] Odextufnno[address] [place], [place] [address]Dr. Garima Pulliam LACTATE/LACTIC ACIDon 2021 Lactate [Moles/Vol] 1.0 mmol/L Normal 0.4-1.9 [facility] Comment on above: Performed By: #### L ACT ####[facility] Zzvdvhgzhl[address] [place], [place] [address]Dr. Garima Pulliam PROF CHEM 8 (BAS METB)on Anion gap [Moles/Vol] 11.6 mmol/L Normal [facility] Comment on above: Performed By: #### B NANCY HERNANDEZ ####[facility] [id number] [place] [address]Dr. Garima Pulliam Calcium [Mass/Vol] 9.2 mg/dL Normal 8.5-10.1 [facility] Comment on above: Performed By: #### B NANCY HERNANDEZ ####[facility] [address] [place] [address]Dr. Garima Pulliam Chloride [Moles/Vol] 105 mmol/L Normal 98-107 [facility] Comment on above: Performed By: #### B MP, CMADM ####[facility] [address] [place] [id number]. Garima Pulliam CO2 [Moles/Vol] 25.9 mmol/L Normal 21.0-32.0 [facility] Comment on above: Performed By: #### B DAVID, CMADM ####[facility] [address] [place] [address]Dr. Garima Pulliam Creatinine [Mass/Vol] 0.72 mg/dL Normal 0.70-1.30 [facility] Comment on above: Performed By: #### B DAVID, CMADM ####[facility] [address] [place] [id number]. Garima Pulliam EGFR-AF EQUATORIAL GUINEAN >60 Normal >=60 [facility] Comment on above: Performed By: #### B DAVID, CMADM ####[facility] [address] [place] [address]Dr. Chapisrenu Pulliam EGFR-NON AF EQUATORIAL GUINEAN >60 Normal >=60 [facility] Comment on above: Performed By: #### B DAVID, CMAANA ROSA ####[facility] [address] [place] [address]Dr. Garima Pulliam Glucose [Mass/Vol] 111 mg/dL Critically high 74-106 [facility] Comment on above: Performed By: #### B DAVID, CMADM ####[facility] [address] [place] [address]Dr. Chapisrenu Pulliam Potassium [Moles/Vol] 3.5 mmol/L Normal 3.5-5.1 [facility] Comment on above: Performed By: #### B DAVID, CMADM ####[facility] [address] [place] [address]Dr. Chapisrenu Pulliam Sodium [Moles/Vol] 139 mmol/L Normal 136-145 [facility] Comment on above: Performed By: #### B DAVID, CMADM ####[facility] [address] [place] [address]Dr. Garima Pulliam Urea nitrogen [Mass/Vol] 7.0 mg/dL Normal 7.0-18.0 [facility] Comment on above: Performed By: #### B DAVID, CMADM ####[facility] [address] [place], [place] [address]Bm. Garima Pulliam Urea nitrogen/Creatinine [Mass ratio] 9.7 mg/mg Normal [facility] Comment on above: Performed By: #### B MP, CMADM ####[facility] [address] [place], [place] [address]Rp. Garima Pulliam XR CHEST 1 Von 09-12-2022 XR CHEST 1 V Normal [facility] Encounters Encounter Date Encounter Type Care Provider [...] Facility:H1 Payers Date Payer Category Payer Unknown [id number] 1960 Medicaid [id number] 1960 Unknown [id number] 1959 Unknown [id number] 1954 Unknown [id number] 2.16.84 0.1.406472.3.579.2.593 1954 Unknown [id number] 2.16.84 0.1.820245.3.579.2.593 1954 Unknown [id number] 2.16.84 0.1.800804.3.579.2.593 1954 Unknown [id number] 2.16.84 0.1.290815.3.579.2.593 1954 Unknown [id number] 2.16.84 0.1.071726.3.579.2.593 1954 Unknown [id number] 2.16.84 0.1.304632.3.579.2.593 1954 Unknown [id number] 2.16.84 0.1.931943.3.579.2.593 1954 Unknown [id number] 2.16.84 0.1.936497.3.579.2.593 1954 Unknown [id number] 2.16.84 0.1.258052.3.579.2.593 1954 Unknown [id number] 2.16.84 0.1.253519.3.579.2.593 1954 Unknown [id number] 2.16.84 0.1.772308.3.579.2.593 1954 Unknown [id number] 2.16.84 0.1.369419.3.579.2.593 1954 Unknown [id number] 2.16.84 0.1.511167.3.579.2.593 1954 Unknown [id number] 2.16.84 0.1.118042.3.579.2.593 1954 Unknown [id number] 2.16.84 0.1.612834.3.579.2.593 1954 Unknown [id number] 2.16.84 0.1.825305.3.579.2.593 1954 Unknown [id number] 2.16.84 0.1.805484.3.579.2.593 1954 Unknown [id number] 2.16.84 0.1.533235.3.579.2.593 1954 Unknown [id number] 2.16.84 0.1.470132.3.579.2.593 1954 Unknown [id number] 2.16.84 0.1.985907.3.579.2.593 Summary Purpose Family History No Family History [...] THE PRIMARY CLINICAL RECORDS. [facility] [employer] [facility]. provides no warranty or guarantee of the accuracy or completeness of information in this document.
--- NOTE | 2024-05-21 16:17 | ED_ITS ---
HPI - SOB/Dyspnea General Chief Complaint: Shortness of Breath/Dyspnea Stated Complaint: SOB Time Seen by Provider: 05/21/24 15:53 Source: patient Mode of arrival: Wheelchair Limitations: no limitations History of Present Illness HPI Narrative: 68-year-old male presents for difficulty breathing. He ran out of his albuterol and is scheduled to get more in a few days. He states that all he needs is a breathing treatment and a prescription for a few vials. He has a nebulizer at home. No fever or productive cough or chest pain. No hemoptysis. The symptoms started today. Related Data Home Medications ?Medication ?Instructions ?Recorded ?Confirmed albuterol sulfate 2.5 mg/3 mL 2.5 mg inhalation Q6H PRN 11/02/23 04/16/24 (0.083 %) solution for nebulization shortness of breath or wheezing albuterol sulfate 90 mcg/actuation 2 inh inhalation Q6H PRN shortness 03/13/24 04/16/24 aerosol inhaler of breath or wheezing Previous Rx's ?Medication ?Instructions ?Recorded losartan 100 mg tablet 100 mg PO DAILY #30 tabs 12/27/23 azithromycin 250 mg tablet See Rx Instructions PO .COMPLEX #6 04/16/24 (Zithromax Z-Luis) tabs prednisone 20 mg tablet 40 mg (2 x 20 mg) PO DAILY 5 days 04/16/24 #10 tabs albuterol sulfate 2.5 mg/3 mL 2.5 mg (3 mL) inhalation Q6H PRN 05/21/24 (0.083 %) solution for nebulization shortness of breath or wheezing #75 mL Allergies Allergy/AdvReac Type Severity Reaction Status Date / Time No Known Drug Allergies Allergy Verified 05/14/24 20:54 Review of Systems ROS Narrative A ten point review of systems is negative except as noted above. [facility] Medical History (Updated 05/21/24 @ 16:16 by Diego Lilly MD) Hypokalemia ?E87.6 - Hypokalemia (ICD-10) New onset type 2 diabetes mellitus ?E11.9 - Type 2 diabetes mellitus without complications (ICD-10) Lower extremity edema ?R60.0 - Localized edema (ICD-10) Edema ?R60.9 - Edema, unspecified (ICD-10) Acute hyperglycemia ?R73.9 - Hyperglycemia, unspecified (ICD-10) Tobacco abuse ?Z72.0 - Tobacco use (ICD-10) HTN (hypertension) ?I10 - Essential (primary) hypertension (ICD-10) Community acquired pneumonia ?J18.9 - Pneumonia, unspecified organism (ICD-10) Chronic obstructive pulmonary disease ?J44.9 - Chronic obstructive pulmonary disease, unspecified (ICD-10) Acute exacerbation of chronic obstructive pulmonary disease (COPD) ?J44.1 - Chronic obstructive pulmonary disease with (acute) exacerbation (ICD-10) RLL pneumonia ?J18.9 - Pneumonia, unspecified organism (ICD-10) COPD (chronic obstructive pulmonary disease) ?J44.9 - Chronic obstructive pulmonary disease, unspecified (ICD-10) Surgical History (Updated 01/29/24 @ 06:45 by Latonia Martin RN) Hx of tonsillectomy ?Z90.89 - Acquired absence of other organs (ICD-10) Family History (Updated 12/25/23 @ 21:28 by Kym Ordaz) Mother Family history of cancer Family history of hypertension Father Family history of cancer Social History Within the past year, how often did you have a drink containing alcohol: 4 or more times a week Within the past year, how many standard drinks containing alcohol did you have on a typical day: 3 or 4 Within the past year, how often did you have six or more drinks on one occasion: less than monthly Total score: 3 Score interpretation: A score of 4 or more indicates drinking is likely to affect patient's safety. Smoking status: Current every day smoker Non-prescribed substance use: cannabis (any form) Previous occupational history: retired Highest level of school completed/degree received: high school graduate Are you now , , , , never or living with a partner: In a typical week, how many times do you talk on the telephone with family, friends, or neighbors: twice per week How often do you get together with friends or relatives: once per week How often do you attend episcopalian or scientologist services: never Do you belong to any clubs or organizations such as episcopalian groups unions, fraternal or athletic groups, or school groups: no Total score: 1 Score interpretation: A score of less than or equal to 1 indicates the most socially isolated. Little interest or pleasure in doing things: several days Feeling down, depressed, or hopeless: not at all Feel stressed/tense/nervous/anxious/difficulty sleeping: not at all Do you think of yourself as: straight/heterosexual Gender Identity: male Exam Narrative Exam Narrative: Nurses note and vital signs reviewed and patient is not hypoxic. General: The patient appears well and in no apparent distress. Patient is resting comfortably sitting in a chair. He is speaking in full sentences. Skin: Warm, dry, no pallor noted. There is no rash noted. Head: Normocephalic, atraumatic Eye: Normal conjunctiva, no drainage Ears, Nose, Mouth, and Throat: oral mucosa is moist. Nares patent. Cardiovascular: Regular Rate and Rhythm Respiratory: Patient is in no distress, no accessory muscle use, lungs have a few rhonchi with good air movement Back: non-tender GI: Soft and nontender Musculoskeletal: No joint swelling Neurological: Awake and alert Psychiatric: Cooperative Constitutional Vital Signs, click to edit/add: Last Vital Signs Temp 98.5 F 05/21/24 15:54 Pulse 83 05/21/24 15:54 Resp 18 05/21/24 15:54 BP 190/101 H 05/21/24 15:54 Pulse Ox 92 L 05/21/24 15:54 O2 Del Method Room Air 05/21/24 15:54 Course Vital Signs Vital signs: Vital Signs Temperature 98.5 F 05/21/24 15:54 Pulse Rate 83 05/21/24 15:54 Respiratory Rate 18 05/21/24 15:54 Blood Pressure 190/101 H 05/21/24 15:54 Pulse Oximetry 92 L 05/21/24 15:54 Oxygen Delivery Method Room Air 05/21/24 15:54 Temperature 98.5 F 05/21/24 15:54 Pulse Rate 83 05/21/24 15:54 Respiratory Rate 18 05/21/24 15:54 Blood Pressure 190/101 H 05/21/24 15:54 Pulse Oximetry 92 L 05/21/24 15:54 Oxygen Delivery Method Room Air 05/21/24 15:54 MDM - SOB/Dyspnea MDM Narrative Medical decision making narrative: He was given aerosol treatment here and a prescription for albuterol. There is no indication for further workup. Treatment diagnosis and follow-up were discussed with the patient. Differential Diagnosis Differential diagnosis: Likely acute exacerbation of chronic obstructive airways disease Discharge Plan Discharge Stand Alone Forms: Portal Instructions Chief Complaint: Shortness of Breath/Dyspnea Clinical Impression: COPD (chronic obstructive pulmonary disease) Patient Disposition: Home, Self-Care Time of Disposition Decision: 16:16 Condition: Good Mode of Transportation: Private Vehicle Prescriptions / Home Meds: New albuterol sulfate 2.5 mg /3 mL (0.083 %) solution for nebulization 2.5 mg inhalation Q6H PRN (Reason: shortness of breath or wheezing) Qty: 75 0RF No Action albuterol sulfate 2.5 mg /3 mL (0.083 %) solution for nebulization 2.5 mg inhalation Q6H PRN (Reason: shortness of breath or wheezing) losartan 100 mg tablet 100 mg PO DAILY Qty: 30 11RF albuterol sulfate 90 mcg/actuation HFA aerosol inhaler 2 inh inhalation Q6H PRN (Reason: shortness of breath or wheezing) azithromycin [Zithromax Z-Luis] 250 mg tablet See Rx Instructions .ROUTE .COMPLEX Qty: 6 0RF Rx Instructions: For 250 mg dose pack: take 500 mg today (day 1), then 250 mg for 4 days (days 2-5) prednisone 20 mg tablet 40 mg PO DAILY 5 Days Qty: 10 0RF Print Language: [place] Instructions: COPD (Chronic Obstructive Pulmonary Disease) (ED) Referrals: SERG DUENAS [Primary Care Provider] - 1 week
[2024-05-21 16:20] VITALS: BP 160/90; PULSE 68; O2SAT 96
[2024-05-21] MEDS: ALBUTEROL SULFATE 2.5 MG/3 ML VIAL NEB IH (16:23)
[2024-05-21 16:24] VITALS: PULSE 72; O2SAT 91
== END 2024-05-21 16:36 | disposition home or self-care (01) ==
PROVIDERS: Emergency Provider Emergency Medicine
DX: J44.9 Chronic obstructive pulmonary disease, unspecified (principal); F17.200 Nicotine dependence, unspecified, uncomplicated
CPT/HCPCS: 94640; 99283

== ENCOUNTER 2024-05-26 17:01 | Emergency (ER) | payer MEDICARE, SELFPAY ==
[2024-05-26] VITALS (8 sets, daily range): BP systolic 148–160; BP diastolic 98; PULSE 71–91; TEMP 36.9; O2SAT 92–98; BMI 23.7
--- NOTE | 2024-05-26 17:06 | XR_ITS ---
The [place] [id number] Patient Name: CONSTANZA BARRETO MRN: [id number] date: 1955 Sex: M Assigned Patient Location: ER Current Patient Location: ED.MAIN Accession/Order Number: [id number] Exam Date: 05/26/2024 17:48 Report Date: 05/26/2024 18:30 At the request of: RUDDY MCGHEE Procedure: XR chest 1V EXAM: XR chest 1V HISTORY: Shortness of breath COMPARISON: 05/09/2024 TECHNIQUE: Chest X-ray AP, 1 view FINDINGS: Support devices: None. Lungs/pleura: No consolidation, effusion, or pneumothorax. Heart and mediastinum: Normal contours. Bones: No acute abnormality identified. XR/XR chest 1V Impression: No radiographic evidence of acute cardiopulmonary process. Electronically authenticated by: HOME BEAULIEU Date: 05/26/2024 18:30
--- OUTSIDE RECORDS SUMMARY | 2024-05-26 17:06 | XMS_ITS | CCD ---
Author Organization [facility] CliniSyri Care Team Providers Care Referral Clerk Name Role Phone REQUEST, DR NONE LISTED [...] Consulting Unavailable TAVARES, KENTRELL Admitting Unavailable KENTRELL CHAPNI Attending Unavailable KENTRELL CHAPIN Consulting Unavailable REQUEST, [...] Facility (1 source) Penicillin Drug Allergy [facility] Repository Problems Active Problems Problem Classification [...] 03-27-2023 Episodic Other aftercare (1 source) Other prison (current) drug therapy; Translations: [OTH DETENTION CURRENT DRUG THERAPY] Onset: 04-07-2023 Episodic Other [...] BASO # 0.0 103/ul Normal 0.0-0.1 [facility] Comment on above: Performed By: #### C BC ####[facility] Jaghxnqnsg[address] [place] [address]Dr. Garima Pulliam Basophils/100 WBC (Bld) 0.3 % Normal 0.2-2.0 [facility] Comment on above: Performed By: #### C BC ####[facility] Pmtnykpscr[address] [place] [address]DrAdalberto Pulliam EO # 0.3 103/ul Normal 0.0-0.7 [facility] Comment on above: Performed By: #### C BC ####[facility] M[address]bwgmf[address] [place], [place] [address]Dr. Garima Pulliam Eosinophils/100 WBC (Bld) 2.8 % Normal 0.9-7.0 [facility] Comment on above: Performed By: #### C BC ####[facility] Ldtwsbakcp[address] [place] [address]Dr. Garima Pulliam Erythrocyte distribution width (RBC) [Ratio] 13.4 % Normal 11.0-15.0 [facility] Comment on above: Performed By: #### C BC ####[facility] Vtzukumhsz40[address] [place] [address]Dr. Garima Pulliam Hematocrit (Bld) [Volume fraction] 45.7 % Normal 42.0-54.0 [facility] Comment on above: Performed By: #### C BC ####[facility] Agwegwtmil[address] [place] [address]Dr. Garima Pulliam Hemoglobin (Bld) [Mass/Vol] 15.2 g/dL Normal 14.0-18.0 [facility] Comment on above: Performed By: #### C BC ####[facility] Ssfexgfoxt[address] [place] [address]Dr. Garima Pulliam IG # 0.02 10e3/ul Normal 0.00-0.03 [facility] Comment on above: Performed By: #### C BC ####[facility] Xckepijliu60[address] [place] [address]Dr. Garima Pulliam IG % 0.2 % Normal 0.0-0.5 [facility] Comment on above: Performed By: #### C BC ####[facility] Hylhvxfhnb[address] [place] [address]Dr. Garima Pulliam LYMPH # 2.1 103/ul Normal 1.2-3.8 [facility] Comment on above: Performed By: #### C BC ####[facility] Opvptffrct26[address] [place] [address]Dr. Garima Pulliam Lymphocytes/100 WBC (Bld) 23.7 % Normal 20.5-60.0 [facility] Comment on above: Performed By: #### C BC ####[facility] Ldgwhlerey[address] [place] [address]Dr. Garima Heraclio MANUAL DIFF REQ NO Normal [facility] Comment on above: Performed By: #### C BC ####[facility] Yqhexblijk4746 [place] [address]Dr. Garima Pulliam MCH (RBC) [Entitic mass] 30.4 pg Normal 25.9-34.0 [facility] Comment on above: Performed By: #### C BC ####[facility] Nvqrtltkpy4106 [place] [address]Dr. Garima Heraclio MCHC (RBC) [Mass/Vol] 33.3 g/dL Normal 29.9-35.2 [facility] Comment on above: Performed By: #### C BC ####[facility] Nhltejsuaj[address] [place], [place] [address]Dr. Chapisrenu Pulliam MCV (RBC) [Entitic vol] 91.4 fL Normal 80.0-94.0 [facility] Comment on above: Performed By: #### C BC ####[facility] Xbwrkufjcm[address] [place], [place] [address]Dr. Garima Heraclio MONO # 0.7 103/ul Normal 0.3-0.8 [facility] Comment on above: Performed By: #### C BC ####[facility] Tqhwetdycc0[address] [place], [place] [address]Dr. Chapisrenu Pulliam Monocytes/100 WBC (Bld) 8.3 % Normal 1.7-12.0 [facility] Comment on above: Performed By: #### C BC ####[facility] Bbnfslefgw6406 [place] [address]Dr. Chapisrenu Heraclio NEUT # 5.8 103/ul Normal 1.4-6.5 [facility] Comment on above: Performed By: #### C BC ####[facility] Yqoufdgbto6[address] [place], [place] [address]Dr. Garima Pulliam Neutrophils/100 WBC (Bld) 64.7 % Normal 43.0-75.0 [facility] Comment on above: Performed By: #### C BC ####[facility] Zdmklyvwic0421 [place] [address]Dr. Garima Pulliam Platelet mean volume (Bld) [Entitic vol] 8.6 fL Critically low 9.5-13.5 [facility] Comment on above: Performed By: #### C BC ####[facility] Ipmsremvyg5668 [place] [address]Dr. Garima Pulliam PLT 230 103/ul Normal 150-450 [facility] Comment on above: Performed By: #### C BC ####[facility] Igkkzdikxl0256 [place] [address]Dr. Chapisernu Heraclio RBC 5.00 106/ul Normal 4.70-6.10 [facility] Comment on above: Performed By: #### C BC ####[facility] Yhwfbinjsj4314 [place] [address]Dr. Garima Heraclio WBC 9.0 103/ul Normal 4.0-11.0 [facility] Comment on above: Performed By: #### C BC ####[facility] Wsmnvwsxop1333 [place] [address]Dr. Garima Pulliam MAGNESIUMon 04-04-2023 Magnesium [Mass/Vol] 1.8 mg/dL Normal 1.8-2.4 [facility] Comment on above: Performed By: #### M G ####[facility] Mrokncwjcv9949 [place] [address]Dr. Chapisrenu Pulliam PROF 14(COMP METB)on 023 Albumin [Mass/Vol] 3.8 g/dL Normal 3.4-5.[address] [facility] Comment on above: Performed By: #### C MP ####[facility] Ihznentpot8094 [place] [address]Dr. Garima Pulliam Albumin/Globulin [Mass ratio] 1.2 {ratio} Normal [facility] Comment on above: Performed By: #### C MP ####[facility] Elctexedxq9747 [place] [address]Dr. Garima Heraclio ALP [Catalytic activity/Vol] 84 U/L Normal 46-116 [facility] Comment on above: Performed By: #### C MP ####[facility] Jvewxjgwch0920 [place] [id number]. Garima Pulliam ALT [Catalytic activity/Vol] 31 U/L Normal 16-63 [facility] Comment on above: Performed By: #### C MP ####[facility] Wayzvdspqg3955 [place] [address]Dr. Garima Pulliam Anion gap [Moles/Vol] 12.2 mmol/L Normal [facility] Comment on above: Performed By: #### C MP ####[facility] Odcmduarym8284 [place] [address]Dr. Garima Pulliam AST [Catalytic activity/Vol] 23 U/L Normal 15-37 [facility] Comment on above: Performed By: #### C MP ####[facility] Gizputkust[address] [place], [place] [address]Dr. Garima Pulliam Bilirubin [Mass/Vol] 0.5 mg/dL Normal 0.2-1.0 [facility] Comment on above: Performed By: #### C MP ####[facility] Eosgwpfykn[address] [place], [place] [address]Dr. Garima Pulliam Calcium [Mass/Vol] 9.2 mg/dL Normal 8.5-10.[address] [facility] Comment on above: Performed By: #### C MP ####[facility] Qrrowonyup4[address] [place], [place] [address]Dr. Garima Pulliam Chloride [Moles/Vol] 103 mmol/L Normal 98-107 [facility] Comment on above: Performed By: #### C MP ####[facility] Vpsncfxvqz0727 [place] [address]Dr. Garima Pulliam CO2 [Moles/Vol] 28.5 mmol/L Normal 21.0-32.0 [facility] Comment on above: Performed By: #### C MP ####[facility] Wocxtwlcyf8[address] [place], [place] [address]Dr. Garima Pulliam Creatinine [Mass/Vol] 0.74 mg/dL Normal 0.70-1.30 [facility] Comment on above: Performed By: #### C MP ####[facility] Zwlkyfpewo0486 [place] [id number]. Garima Pulliam EGFR-AF SWEDISH >60 Normal >=60 [facility] Comment on above: Performed By: #### C MP ####[facility] Ciorcmlyat3[address] [place] [address]Dr. Garima Heraclio EGFR-NON AF SWEDISH >60 Normal >=60 [facility] Comment on above: Performed By: #### C MP ####[facility] Whzzqjvtwm5426 [place] [id number]. Garima Heraclio Globulin (S) [Mass/Vol] 3.1 g/dL Normal [facility] Comment on above: Performed By: #### C MP ####[facility] Bmbvhetujf7[address] [place], [place] [address]Dr. Garima Heraclio Glucose [Mass/Vol] 93 mg/dL Normal 74-106 [facility] Comment on above: Performed By: #### C MP ####[facility] Cuyiyohvoe[address] [place], [place] [address]Dr. Garima Heraclio Potassium [Moles/Vol] 3.7 mmol/L Normal 3.5-5.1 [facility] Comment on above: Performed By: #### C MP ####[facility] Vsrugcttjc84[address] [place], [place] [address]Dr. Garima Heraclio Protein [Mass/Vol] 6.9 g/dL Normal 6.4-8.2 [facility] Comment on above: Performed By: #### C MP ####[facility] Ujrheyaanv40[address] [place], [place] [address]Dr. Garima Heraclio Sodium [Moles/Vol] 140 mmol/L Normal 136-145 [facility] Comment on above: Performed By: #### C MP ####[facility] Hxlwsxpvvo723[address] [place], [place] [address]Dr. Garima Pulliam Urea nitrogen [Mass/Vol] 8.0 mg/dL Normal 7.0-18.0 [facility] Comment on above: Performed By: #### C MP ####[facility] Vfaqnomseb10[address] [place], [place] [address]Dr. Garima Pulliam Urea nitrogen/Creatinine [Mass ratio] 10.8 mg/mg Normal [facility] Comment on above: Performed By: #### C DAVID ####[facility] Hreizjluuq1305 [place] [address]Dr. Garima Pulliam AMMONIAon 03-30-2023 Ammonia (P) [Moles/Vol] 11 umol/L Normal 11-32 [facility] Comment on above: Performed By: #### A MM ####[facility] Gczyaeiykq[address] [place], [place] [address]Dr. Garima Pulliam CARDIAC NASH ADMITon 023 CK [Catalytic activity/Vol] 232 U/L Normal 39-308 [facility] Comment on above: Performed By: #### C NANCY HERNANDEZ ####[facility] Etrbujffod9013 [place] [address]Dr. Chapisrenu Pulliam CK.MB [Mass/Vol] 4.83 ng/mL Critically high <=3.60 [facility] Comment on above: Performed By: #### C NANCY HERNANDEZ ####[facility] Cxqcazpobg[address] [place], [place] [address]Dr. aGrima Pulliam HSTROP 10.5 pg/mL Normal 4.0-76.1 [facility] Comment on above: Result Comment: CUT- OFF POINTS HAVE BEEN ESTABLISHED BASED ON THE FOURTH UNIVERSAL DEFINITIONS OF MYOCARDIALINFARCTION. THE UPPER REFERENCE LIMIT (URL) OF TROPONIN, DEFINED THE 99TH PERCENTILE OFcTnI DISTRIBUTION IN A REFERENCE POPULATION, HAS BEEN CONFIRMED THE DECISION THRESHOLDFOR [place] DIAGNOSIS. Performed By: #### C NANCY HERNANDEZ ####[facility] Cuoehbgute85[address] [place], [place] [address]Dr. Garima Heraclio DORIS 79 ng/mL Normal 16-96 [facility] Comment on above: Performed By: #### C NANCY HERNANDEZ ####[facility] Wnejkwsnli[address] [place], [place] [address]Dr. Garima Heraclio CBC AUTO DIFFon 03-30-2023 BASO # 0.0 103/ul Normal 0.0-0.1 [facility] Comment on above: Performed By: #### C BC ####[facility] Izqtfhjrkg0832 [place] [phone]. Garima Pulliam Basophils/100 WBC (Bld) 0.1 % Critically low 0.2-2.0 [facility] Comment on above: Performed By: #### C BC ####[facility] Vvnalgbbpb3533 [place] [phone]. Garima Pulliam EO # 0.3 103/ul Normal 0.0-0.7 [facility] Comment on above: Performed By: #### C BC ####[facility] Gcjhsessyq[address] [place], [place] [address]Dr. Garima Pulliam Eosinophils/100 WBC (Bld) 3.3 % Normal 0.9-7.0 [facility] Comment on above: Performed By: #### C BC ####[facility] Qtdrkrklrq[address] [place], [place] [address]Dr. Garima Pulliam Erythrocyte distribution width (RBC) [Ratio] 13.5 % Normal 11.0-15.0 [facility] Comment on above: Performed By: #### C BC ####[facility] Bhlwmeabqn[address] [place], [place] [address]Dr. Garima Pulliam Hematocrit (Bld) [Volume fraction] 42.9 % Normal 42.0-54.0 [facility] Comment on above: Performed By: #### C BC ####[facility] Ssjcqbfzzk[address] [place], [place] [address]Dr. Garima Pulliam Hemoglobin (Bld) [Mass/Vol] 13.9 g/dL Critically low 14.0-18.0 [facility] Comment on above: Performed By: #### C BC ####[facility] Dbwlkakrje5691 [place] [address]Dr. Garima Pulliam IG # 0.01 10e3/ul Normal 0.00-0.03 [facility] Comment on above: Performed By: #### C BC ####[facility] Yuyhoiiygf[address] [place], [place] [address]Dr. Garima Pulliam IG % 0.1 % Normal 0.0-0.5 [facility] Comment on above: Performed By: #### C BC ####[facility] Rwoajorukr5116 [place] [address]Dr. Garima Pulliam LYMPH # 1.7 103/ul Normal 1.2-3.8 [facility] Comment on above: Performed By: #### C BC ####[facility] Pobiiunklx5943 [place], [place] [address]Tq. Garima Pulliam Lymphocytes/100 WBC (Bld) 22.8 % Normal 20.5-60.0 [facility] Comment on above: Performed By: #### C BC ####[facility] Kehdfhlqkw0973 [place] [address]Dr. Garima Heraclio MANUAL DIFF REQ NO Normal [facility] Comment on above: Performed By: #### C BC ####[facility] Jfomdqofnh7951 [place] [address]Dr. Garima Heraclio MCH (RBC) [Entitic mass] 30.5 pg Normal 25.9-34.0 [facility] Comment on above: Performed By: #### C BC ####[facility] Vujenssuvj1315 [place] [address]Dr. Garima Pulliam MCHC (RBC) [Mass/Vol] 32.4 g/dL Normal 29.9-35.2 [facility] Comment on above: Performed By: #### C BC ####[facility] Mraaiioqmj8688 [place] [address]Dr. Garima Heraclio MCV (RBC) [Entitic vol] 94.1 fL Critically high 80.0-94.0 [facility] Comment on above: Performed By: #### C BC ####[facility] Esdsfhnxun8918 [place] [address]Dr. Garima Heraclio MONO # 0.7 103/ul Normal 0.3-0.8 [facility] Comment on above: Performed By: #### C BC ####[facility] Vnwqrlpnhb2925 [place] [address]Dr. Garima Heraclio Monocytes/100 WBC (Bld) 8.6 % Normal 1.7-12.0 [facility] Comment on above: Performed By: #### C BC ####[facility] Utuqattjqi3739 [place] [address]Dr. aGrima Pulliam NEUT # 4.9 103/ul Normal 1.4-6.5 [facility] Comment on above: Performed By: #### C BC ####[facility] Ntfvkkxmlz5504 [place] [address]Dr. Garima Pulliam Neutrophils/100 WBC (Bld) 65.1 % Normal 43.0-75.0 [facility] Comment on above: Performed By: #### C BC ####[facility] Ndnexwepwe1229 [place] [address]Dr. Garima Pulliam Platelet mean volume (Bld) [Entitic vol] 8.5 fL Critically low 9.5-13.5 [facility] Comment on above: Performed By: #### C BC ####[facility] Jhhqitcyal2434 [place] [address]Dr. Garima Pulliam PLT 219 103/ul Normal 150-450 [facility] Comment on above: Performed By: #### C BC ####[facility] Oyfnznsdef7840 [place] [address]Dr. Garima Pulliam RBC 4.56 106/ul Critically low 4.70-6.10 [facility] Comment on above: Performed By: #### C BC ####[facility] Lmpgvriuuy5507 [place] [address]Dr. Garima Pulliam WBC 7.6 103/ul Normal 4.0-11.0 [facility] Comment on above: Performed By: #### C BC ####[facility] Cixqabgoml5701 [place] [address]Dr. Garima Pulliam LACTATE/LACTIC ACIDon 2022 Lactate [Moles/Vol] 1.2 mmol/L Normal 0.4-2.0 [facility] Comment on above: Performed By: #### L ACT ####[facility] Qymdaxnodd5073 [place] [address]Dr. Garima Pulliam MAGNESIUMon 03-30-2023 Magnesium [Mass/Vol] 1.8 mg/dL Normal 1.8-2.4 [facility] Comment on above: Performed By: #### M G ####[facility] Sqlinmxzwy7894 [place] [address]Dr. Garima Pulliam PROF 14(COMP METB)on 023 Albumin [Mass/Vol] 3.5 g/dL Normal 3.4-5.[address] [facility] Comment on above: Performed By: #### C DAVID, CMAANA ROSA ####[facility] Jpryzkbanu8421 [place] [address]Dr. Garima Pulliam Albumin/Globulin [Mass ratio] 1.2 {ratio} Normal [facility] Comment on above: Performed By: #### C DAVID, CMAANA ROSA ####[facility] Iekmccyezk7098 [place] [address]Dr. Garima Pulliam ALP [Catalytic activity/Vol] 85 U/L Normal 46-116 [facility] Comment on above: Performed By: #### C DAVID, CMAANA ROSA ####[facility] Wo[address]hlwdw[address] [place], [place] [address]Dr. Garima Pulliam ALT [Catalytic activity/Vol] 29 U/L Normal 16-63 [facility] Comment on above: Performed By: #### C DAVID, CMAANA ROSA ####[facility] Arzowismza9955 [place] [address]Dr. Garima Pulliam Anion gap [Moles/Vol] 8.0 mmol/L Normal [facility] Comment on above: Performed By: #### C DAVID, CMAANA ROSA ####[facility] Ekxbcogkoh9681 [place] [address]Dr. Garima Pulliam AST [Catalytic activity/Vol] 18 U/L Normal 15-37 [facility] Comment on above: Performed By: #### C DAVID, CMADM ####[facility] Kbevctmrus1919 [place] [address]Dr. Garima Pulliam Bilirubin [Mass/Vol] 0.4 mg/dL Normal 0.2-1.0 [facility] Comment on above: Performed By: #### C DAVID, CMADM ####[facility] Pipsqdxmll3089 [place] [address]Dr. Garima Pulliam Calcium [Mass/Vol] 8.8 mg/dL Normal 8.5-10.[address] [facility] Comment on above: Performed By: #### C DAVID, NANCY ####[facility] Weeylywjbf1997 [place] [address]Dr. Chapisrenu Pulliam Chloride [Moles/Vol] 108 mmol/L Critically high 98-107 [facility] Comment on above: Performed By: #### C DAVID, NANCY ####[facility] Bvizkkkobu9214 [place] [address]Dr. Garima Pulliam CO2 [Moles/Vol] 29.6 mmol/L Normal 21.0-32.0 [facility] Comment on above: Performed By: #### C NANCY HERNANDEZ ####[facility] Kvkylkahmb[address] [place], [place] [address]Dr. Garima Pulliam Creatinine [Mass/Vol] 0.77 mg/dL Normal 0.70-1.30 [facility] Comment on above: Performed By: #### C NANCY HERNANDEZ ####[facility] Baprezrgmp[address] [place], [place] [address]Dr. Garima Heraclio EGFR-AF SWEDISH >60 Normal >=60 [facility] Comment on above: Performed By: #### C NANCY HERNANDEZ ####[facility] [address]edpygfnqy[address] [place], [place] [address]Dr. Garima Heraclio EGFR-NON AF SWEDISH >60 Normal >=60 [facility] Comment on above: Performed By: #### C NANCY HERNANDEZ ####[facility] Zgcaosucth8917 [place] [address]Dr. Garima Pulliam Globulin (S) [Mass/Vol] 2.8 g/dL Normal [facility] Comment on above: Performed By: #### C NANCY HERNANDEZ ####[facility] Jfqtfvivqt7219 [place] [address]Dr. Garima Pulliam Glucose [Mass/Vol] 207 mg/dL Critically high 74-106 [facility] Comment on above: Performed By: #### C NANCY HERNANDEZ ####[facility] [address]kbzpwbukt[address] [place], [place] [address]Dr. Garima Pulliam Potassium [Moles/Vol] 4.6 mmol/L Normal 3.5-5.1 [facility] Comment on above: Performed By: #### C DAVID, NANCY ####[facility] Sdrbfswtqv1927 [place] [address]Dr. Garima Pulliam Protein [Mass/Vol] 6.3 g/dL Critically low 6.4-8.2 [facility] Comment on above: Performed By: #### C DAVID, NANCY ####[facility] Foaxcbxvfr2426 [place] [address]Dr. Garima Pulliam Sodium [Moles/Vol] 141 mmol/L Normal 136-[address] [facility] Comment on above: Performed By: #### C DAVID, NANCY ####[facility] Kpugnhyyps5650 [place] [address]Dr. Graima Pulliam Urea nitrogen [Mass/Vol] 9.0 mg/dL Normal 7.0-18.0 [facility] Comment on above: Performed By: #### C DAVID, NANCY ####[facility] Nsdzoicrln3578 [place] [address]Dr. Garima Pulliam Urea nitrogen/Creatinine [Mass ratio] 11.7 mg/mg Normal [facility] Comment on above: Performed By: #### C DAVID, NANCY ####[facility] Zdfrhksctr4475 [place] [address]Dr. Garima Pulliam XR CHEST 1 Von 03-30-2023 XR CHEST 1 V Normal [facility] BNPon 03-27-2023 Natriuretic peptide B (Bld) [Mass/Vol] 251.0 pg/mL Normal <=900.0 [facility] Comment on above: Performed By: #### C MP, BNP, LIPID ####[facility] Biepzxxkal42[address] [place] [address]Dr. Garima Pulliam GLYCOHEMOGLOBIN A1Con 2022 ADA RECOMMENDATION SEE BELOW Normal [facility] Comment on above: Result Comment: ADA RECOMMENDED LIMIT 4.0 - 6.0 ADA THERAPEUTIC TARGET < 7.0 ACTION SUGGESTED > 7.0 Performed By: #### A 1C ####[facility] Rnbhopfrsa2944 [place] [address]Dr. Garima Pulliam Glucose [Mass/Vol] 180 mg/dL Normal [facility] Comment on above: Performed By: #### A 1C ####[facility] F[address]cgkdojs[address] [place], [place] [address]Dr. Chapisrenu Pulliam HbA1c (Bld) [Mass fraction] 7.9 % Critically high 4.5-6.2 [facility] Comment on above: Performed By: #### A 1C ####[facility] [address]fxtgfpu[address] [place], [place] [address]Dr. Garima Pulliam HEMOGRAM AND PLATELon 2022 Hematocrit (Bld) [Volume fraction] 45.7 % Normal 42.0-54.0 [facility] Comment on above: Performed By: #### H H ####[facility] Xzztuqcxxy[address] [place], [place] [address]Dr. Garima Pulliam Hemoglobin (Bld) [Mass/Vol] 15.1 g/dL Normal 14.0-18.0 [facility] Comment on above: Performed By: #### H H ####[facility] Y[address]ckwzmdl[address] [place], [place] [address]Dr. Garima Pulliam MCH (RBC) [Entitic mass] 30.0 pg Normal 25.9-34.0 [facility] Comment on above: Performed By: #### H H ####[facility] Jnpcwvxlcd[address] [place], [place] [address]Dr. Garima Pulliam MCHC (RBC) [Mass/Vol] 33.0 g/dL Normal 29.9-35.2 [facility] Comment on above: Performed By: #### H H ####[facility] [address]bbvigzjph[address] [place], [place] [address]Dr. Garima Pulliam MCV (RBC) [Entitic vol] 90.7 fL Normal 80.0-94.0 [facility] Comment on above: Performed By: #### H H ####[facility] [address]jyzfdlfw[address] [place], [place] [address]Dr. Garima Pulliam PLT 222 103/ul Normal 150-450 [facility] Comment on above: Performed By: #### H H ####[facility] Aihyvxsqsu5882 [place] [address]Dr. Garima Pulliam RBC 5.04 106/ul Normal 4.70-6.10 [facility] Comment on above: Performed By: #### H H ####[facility] Puajfotuwy[address] [place] [address]Dr. Garima Pulliam WBC 8.7 103/ul Normal 4.0-11.0 [facility] Comment on above: Performed By: #### H H ####[facility] Kszyjzzrli7145 [place] [address]Dr. Garima Pulliam LIPID PROFILEon 03-27-2023 CHOL-HDL RATIO NORM SEE BELOW Normal [facility] Comment on above: Result Comment: 3.3 - 4.4 LOW RISK 4.4 - 7.1 AVERAGE RISK 7.1 - 11.0 MODERATE RISK >11.0 HIGH RISK Performed By: #### C MP, BNP, LIPID ####[facility] [address]vnefukv[address] [place] [address]Dr. Garima Pulliam Cholesterol [Mass/Vol] 113 mg/dL Normal <=200 [facility] Comment on above: Performed By: #### C MP, BNP, LIPID ####[facility] Nprrgpudot[address] [place] [address]Dr. Garima Pulliam Cholesterol in HDL [Mass/Vol] 51 mg/dL Normal 40-60 [facility] Comment on above: Performed By: #### C MP, BNP, LIPID ####[facility] Hqxqguprkp[address] [place] [address]Dr. Garima Pulliam Cholesterol in LDL [Mass/Vol] 49.8 mg/dL Normal [facility] Comment on above: Performed By: #### C MP, BNP, LIPID ####[facility] Oeeepcxkvy[address] [place] [address]Dr. Garima Pulliam Cholesterol.total/Cho lesterol in HDL [Mass ratio] 2.2 {ratio} Normal [facility] Comment on above: Performed By: #### C MP, BNP, LIPID ####[facility] [address]fqklppczu[address] [place] [address]Dr. Garima Pulliam HDL NORMAL > or = 60 mg/dl - LOW CARDIOVASCULAR RISK <40 mg/dl - HIGH CARDIOVASCULAR RISK Normal [facility] Comment on above: Performed By: #### C MP, BNP, LIPID ####[facility] Zyvhkgggiz[address] [place] [address]Dr. Garima Pulliam LDL CALC NORMAL SEE BELOW Normal [facility] Comment on above: Result Comment: <100 mg/dl OPTIMAL 100 - 129 mg/dl NEAR OR ABOVE OPTIMAL 130 - 159 mg/dl BORDERLINE HIGH 160 - 189 mg/dl HIGH >190 mg/dl VERY HIGH Performed By: #### C MP, BNP, LIPID ####[facility] [address]wqdwetpvu[address] [place] [address]Dr. Garima Pulliam Triglyceride [Mass/Vol] 61 mg/dL Normal <=150 [facility] Comment on above: Performed By: #### C MP, BNP, LIPID ####[facility] Eigguzagfh[address] [place] [address]Dr. Garima Pulliam VLDL CALC 12.2 mg/dL Normal [facility] Comment on above: Performed By: #### C MP, BNP, LIPID ####[facility] Msldjndnzt[address] [place] [address]Dr. Garima Pulliam PROF 14(COMP METB)on 023 Albumin [Mass/Vol] 3.5 g/dL Normal 3.4-5.[address] [facility] Comment on above: Performed By: #### C MP, BNP, LIPID ####[facility] Mqdspkgjwq70[address] [place] [address]Dr. Garima Pulliam Albumin/Globulin [Mass ratio] 1.2 {ratio} Normal [facility] Comment on above: Performed By: #### C MP, BNP, LIPID ####[facility] Gqvhuhqfio[address] [place] [address]Dr. Garima Pulliam ALP [Catalytic activity/Vol] 82 U/L Normal 46-116 [facility] Comment on above: Performed By: #### C MP, BNP, LIPID ####[facility] Kugppvqbwx[address] [place] [address]Dr. Garima Pulliam ALT [Catalytic activity/Vol] 33 U/L Normal 16-63 [facility] Comment on above: Performed By: #### C MP, BNP, LIPID ####[facility] Yzocprhmfb8[address] [place] [address]Dr. Garima Pulliam Anion gap [Moles/Vol] 9.9 mmol/L Normal [facility] Comment on above: Performed By: #### C MP, BNP, LIPID ####[facility] Yekajrisee[address] [place] [address]Dr. Garima Pulliam AST [Catalytic activity/Vol] 24 U/L Normal 15-37 [facility] Comment on above: Performed By: #### C MP, BNP, LIPID ####[facility] Awndoqdpfx[address] [place] [address]Dr. Garima Pulliam Bilirubin [Mass/Vol] 0.6 mg/dL Normal 0.2-1.0 [facility] Comment on above: Performed By: #### C MP, BNP, LIPID ####[facility] Srisnyogql64[address] [place] [address]Dr. Garima Pulliam Calcium [Mass/Vol] 9.2 mg/dL Normal 8.5-10.[address] [facility] Comment on above: Performed By: #### C MP, BNP, LIPID ####[facility] Mtlsvsfywd23[address] [place] [address]Dr. Garima Pulliam Chloride [Moles/Vol] 106 mmol/L Normal 98-107 [facility] Comment on above: Performed By: #### C MP, BNP, LIPID ####[facility] Cnyomyjovl4[address] [place] [address]Dr. Garima Pulliam CO2 [Moles/Vol] 32.3 mmol/L Critically high 21.0-32.0 [facility] Comment on above: Performed By: #### C MP, BNP, LIPID ####[facility] Fbnrowynta39[address] [place] [address]Dr. Garima Pulliam Creatinine [Mass/Vol] 0.70 mg/dL Normal 0.70-1.30 [facility] Comment on above: Performed By: #### C MP, BNP, LIPID ####[facility] Eyusrjrkev[address] [place] [id number]. Garima Pulliam EGFR-AF SWEDISH >60 Normal >=60 [facility] Comment on above: Performed By: #### C MP, BNP, LIPID ####[facility] Yijbkvpolq01[address] [place] [id number]. Garima Pulliam EGFR-NON AF SWEDISH >60 Normal >=60 [facility] Comment on above: Performed By: #### C MP, BNP, LIPID ####[facility] Uytesublzb[address]30 [place] [address]Dr. Garima Pulliam Globulin (S) [Mass/Vol] 2.9 g/dL Normal [facility] Comment on above: Performed By: #### C MP, BNP, LIPID ####[facility] Zdprgwzryl64[address] [place] [address]Dr. Garima Pulliam Glucose [Mass/Vol] 111 mg/dL Critically high 74-106 [facility] Comment on above: Performed By: #### C MP, BNP, LIPID ####[facility] Eqipehwbau2886 [place] [address]Dr. Garima Pulliam Potassium [Moles/Vol] 4.2 mmol/L Normal 3.5-5.1 [facility] Comment on above: Performed By: #### C MP, BNP, LIPID ####[facility] Tumnpehbok[address] [place] [address]Dr. Garima Pulliam Protein [Mass/Vol] 6.4 g/dL Normal 6.4-8.[address] [facility] Comment on above: Performed By: #### C MP, BNP, LIPID ####[facility] Thdsugsoyj72[address] [place] [address]Dr. Garima Pulliam Sodium [Moles/Vol] 144 mmol/L Normal 136-[address] [facility] Comment on above: Performed By: #### C MP, BNP, LIPID ####[facility] Jjrqfrekqy08[address] [place] [address]Dr. Garima Pulliam Urea nitrogen [Mass/Vol] 7.0 mg/dL Normal 7.0-18.0 [facility] Comment on above: Performed By: #### C MP, BNP, LIPID ####[facility] Rtghudzrxc[address] [place], [place] [address]Dr. Garima Pulliam Urea nitrogen/Creatinine [Mass ratio] 10.0 mg/mg Normal [facility] Comment on above: Performed By: #### C MP, BNP, LIPID ####[facility] Agtrlgqglr83[address] [place], [place] [address]Dr. Garima Pulliam BNPon 03-22-2023 Natriuretic peptide B (Bld) [Mass/Vol] 103.0 pg/mL Normal <=900.0 [facility] Comment on above: Performed By: #### B POSTAL CARRIER, BMP ####[facility] Graguxsrpz[address] [place], [place] [address]Dr. Garima Pulliam CBC AUTO DIFFon 03-22-2023 BASO # 0.0 103/ul Normal 0.0-0.1 [facility] Comment on above: Performed By: #### C BC ####[facility] Yueyduodvu[address] [place], [place] [address]Dr. Garima Heraclio Basophils/100 WBC (Bld) 0.3 % Normal 0.2-2.0 [facility] Comment on above: Performed By: #### C BC ####[facility] Qugivjhpaf[address] [place], [place] [address]Dr. Garima Pulliam EO # 0.2 103/ul Normal 0.0-0.7 [facility] Comment on above: Performed By: #### C BC ####[facility] Oxhkoqyrve[address] [place], [place] [address]Dr. Garima Pulliam Eosinophils/100 WBC (Bld) 2.2 % Normal 0.9-7.0 [facility] Comment on above: Performed By: #### C BC ####[facility] Bgioajrhux54[address] [place], [place] [address]Dr. Garima Pulliam Erythrocyte distribution width (RBC) [Ratio] 13.2 % Normal 11.0-15.0 [facility] Comment on above: Performed By: #### C BC ####[facility] [address]wxgrndg7[address] [place] [id number]. Garima Pulliam Hematocrit (Bld) [Volume fraction] 43.4 % Normal 42.0-54.0 [facility] Comment on above: Performed By: #### C BC ####[facility] Xgolheiqwk76[address] [place] [address]Dr. Garima Heraclio Hemoglobin (Bld) [Mass/Vol] 14.3 g/dL Normal 14.0-18.0 [facility] Comment on above: Performed By: #### C BC ####[facility] Xfsvjtlgoy33[address] [place] [address]Dr. Garima Pulliam IG # 0.02 10e3/ul Normal 0.00-0.03 [facility] Comment on above: Performed By: #### C BC ####[facility] Wtcqqodmle1734 [place] [address]Dr. Garima Pulliam IG % 0.3 % Normal 0.0-0.5 [facility] Comment on above: Performed By: #### C BC ####[facility] Eamouyuzxq3[address] [place] [address]Dr. Chapisrenu Pulliam LYMPH # 2.0 103/ul Normal 1.2-3.8 [facility] Comment on above: Performed By: #### C BC ####[facility] Ckqzkvsuih7[address] [place] [address]Dr. Chapisrenu Pulliam Lymphocytes/100 WBC (Bld) 24.8 % Normal 20.5-60.0 [facility] Comment on above: Performed By: #### C BC ####[facility] Fkkxnqjtji68[address] [place] [address]Dr. Chapisrenu Pulliam MANUAL DIFF REQ NO Normal [facility] Comment on above: Performed By: #### C BC ####[facility] Unaflnmjht5[address] [place] [address]Dr. Garima Heraclio MCH (RBC) [Entitic mass] 30.0 pg Normal 25.9-34.0 [facility] Comment on above: Performed By: #### C BC ####[facility] Ruawdmfbzo[address] [place], [place] [address]Dr. Garima Pulliam MCHC (RBC) [Mass/Vol] 32.9 g/dL Normal 29.9-35.2 [facility] Comment on above: Performed By: #### C BC ####[facility] Kmhhusfruf05[address] [place] [phone]. Garima Pulliam MCV (RBC) [Entitic vol] 91.0 fL Normal 80.0-94.0 [facility] Comment on above: Performed By: #### C BC ####[facility] Fcelaytqhw8005 [place] [phone]. Garima Heraclio MONO # 0.8 103/ul Normal 0.3-0.8 [facility] Comment on above: Performed By: #### C BC ####[facility] Uefxrocrno4[address] [place] [address]Dr. Chapisrenu Pulliam Monocytes/100 WBC (Bld) 9.7 % Normal 1.7-12.0 [facility] Comment on above: Performed By: #### C BC ####[facility] Pvgzsbdoqn8979 [place] [address]Dr. Garima Pulliam NEUT # 4.9 103/ul Normal 1.4-6.5 [facility] Comment on above: Performed By: #### C BC ####[facility] Rxgpqtuhbg6289 [place] [phone]. Garima Heraclio Neutrophils/100 WBC (Bld) 62.7 % Normal 43.0-75.0 [facility] Comment on above: Performed By: #### C BC ####[facility] Xdfudczbfk5216 [place] [phone]. Garima Heraclio Platelet mean volume (Bld) [Entitic vol] 8.8 fL Critically low 9.5-13.5 [facility] Comment on above: Performed By: #### C BC ####[facility] Tbkiqnzhzp7183 [place] [phone]. Garima Heraclio PLT 198 103/ul Normal 150-450 [facility] Comment on above: Performed By: #### C BC ####[facility] Muij[address]ubsyk24[address] [place] [phone]. Garima Heraclio RBC 4.77 106/ul Normal 4.70-6.10 [facility] Comment on above: Performed By: #### C BC ####[facility] Cxvaiiqved8371 [place] [address]Dr. Garima Heraclio WBC 7.9 103/ul Normal 4.0-11.0 [facility] Comment on above: Performed By: #### C BC ####[facility] Rtpokjicps9338 [place] [phone]. Garima Heraclio D-DIMERon 03-22-2023 D-DIMER 0.85 mg/L FEU Critically high <=0.59 [facility] Comment on above: Performed By: #### D DIM ####[facility] Yqshdzhtnz5[address] [place] [address]Dr. Garima Pulliam D-DIMER COMMENTS SEE BELOW Normal [facility] Comment on above: Result Comment: Incr [...] generalized hospitalization. Performed By: #### D DIM ####[facility] Lxuonhkfox[address] [place], [place] [address]Dr. Garima Pulliam PROF CHEM 8 (BAS METB)on Anion gap [Moles/Vol] 6.9 mmol/L Normal [facility] Comment on above: Performed By: #### B POSTAL CARRIER, BMP ####[facility] Lwdaovigip4060 [place] [address]Dr. Garima Pulliam Calcium [Mass/Vol] 8.9 mg/dL Normal 8.5-10.1 [facility] Comment on above: Performed By: #### B POSTAL CARRIER, BMP ####[facility] Vxsmvqfstf37[address] [place] [address]Dr. Garima Pulliam Chloride [Moles/Vol] 101 mmol/L Normal 98-107 [facility] Comment on above: Performed By: #### B POSTAL CARRIER, BMP ####[facility] Eymfycwwyq[address] [place], [place] [address]Dr. Chapisrenu Heraclio CO2 [Moles/Vol] 30.7 mmol/L Normal 21.0-32.0 [facility] Comment on above: Performed By: #### B POSTAL CARRIER, BMP ####[facility] Iulnrtmqkz[address] [place], [place] [address]Dr. Garima Pulliam Creatinine [Mass/Vol] 0.82 mg/dL Normal 0.70-1.30 [facility] Comment on above: Performed By: #### B POSTAL CARRIER, BMP ####[facility] Lcxbsxpxzi[address] [place], [place] [address]Dr. Garima Pulliam EGFR-AF SWEDISH >60 Normal >=60 [facility] Comment on above: Performed By: #### B POSTAL CARRIER, BMP ####[facility] Vqceugkpzb[address] [place], [place] [address]Dr. Chapisrenu Heraclio EGFR-NON AF SWEDISH >60 Normal >=60 [facility] Comment on above: Performed By: #### B POSTAL CARRIER, BMP ####[facility] Bbhfqtbmit[address] [place], [place] [address]Dr. Garima Pulliam Glucose [Mass/Vol] 339 mg/dL Critically high 74-106 [facility] Comment on above: Performed By: #### B POSTAL CARRIER, BMP ####[facility] Pyqnuufcvx02[address] [place], [place] [address]Dr. Garima Pulliam Potassium [Moles/Vol] 3.6 mmol/L Normal 3.5-5.1 [facility] Comment on above: Performed By: #### B POSTAL CARRIER, BMP ####[facility] Yewukoscnd7[address] [place], [place] [address]Dr. Garima Pulliam Sodium [Moles/Vol] 135 mmol/L Critically low 136-145 [facility] Comment on above: Performed By: #### B POSTAL CARRIER, BMP ####[facility] Ibkciigfzx6[address] [place], [place] [address]Dr. Garima Pulliam Urea nitrogen [Mass/Vol] 11.0 mg/dL Normal 7.0-18.0 [facility] Comment on above: Performed By: #### B POSTAL CARRIER, BMP ####[facility] Fuwmijpibz[address] [place], [place] [address]Dr. Garima Pulliam Urea nitrogen/Creatinine [Mass ratio] 13.4 mg/mg Normal [facility] Comment on above: Performed By: #### B POSTAL CARRIER, BMP ####[facility] Xalrylhccs[address] [place], [place] [address]Dr. Garima Pulliam US VERONICA DOP LEG BILon 023 US VERONICA DOP LEG BENOIT Normal [facility] BNPon 03-18-2023 Natriuretic peptide B (Bld) [Mass/Vol] 226.0 pg/mL Normal <=900.0 [facility] Comment on above: Performed By: #### B POSTAL CARRIER, BMP ####[facility] Firivezayk[address] [place], [place] [address]Dr. Garima Pulliam CBC AUTO DIFFon 03-18-2023 BASO # 0.0 103/ul Normal 0.0-0.1 [facility] Comment on above: Performed By: #### C BC ####[facility] Peapupvalw[address] [place], [place] [address]Dr. Garima Heraclio Basophils/100 WBC (Bld) 0.2 % Normal 0.2-2.0 [facility] Comment on above: Performed By: #### C BC ####[facility] S[address]wxznckah[address] [place], [place] [address]Dr. Garima Uplliam EO # 0.3 103/ul Normal 0.0-0.7 [facility] Comment on above: Performed By: #### C BC ####[facility] Ixdmqwjrgf[address] [place], [place] [address]Dr. Garima Heraclio Eosinophils/100 WBC (Bld) 2.5 % Normal 0.9-7.0 [facility] Comment on above: Performed By: #### C BC ####[facility] Lobnykyfna[address] [place], [place] [address]Dr. Garima Heraclio Erythrocyte distribution width (RBC) [Ratio] 13.2 % Normal 11.0-15.0 [facility] Comment on above: Performed By: #### C BC ####[facility] Ghtfpopeid6470 [place] [address]DrAdalberto Pulliam Hematocrit (Bld) [Volume fraction] 45.8 % Normal 42.0-54.0 [facility] Comment on above: Performed By: #### C BC ####[facility] Bfezwyuofs7894 [place] [address]DrAdalberto Pulliam Hemoglobin (Bld) [Mass/Vol] 15.3 g/dL Normal 14.0-18.0 [facility] Comment on above: Performed By: #### C BC ####[facility] Cqmqufmuhr[address] [place], [place] [address]DrAdalberto Pulliam IG # 0.02 10e3/ul Normal 0.00-0.03 [facility] Comment on above: Performed By: #### C BC ####[facility] Phnsggbxtm294[address] [place], [place] [address]DrAdalberto Pulliam IG % 0.2 % Normal 0.0-0.5 [facility] Comment on above: Performed By: #### C BC ####[facility] Jhbhfixhud9[address] [place], [place] [address]DrAdalberto Pulliam LYMPH # 1.8 103/ul Normal 1.2-3.8 [facility] Comment on above: Performed By: #### C BC ####[facility] Wscwitmejj395[address] [place], [place] [address]DrAdalberto Pulliam Lymphocytes/100 WBC (Bld) 18.3 % Critically low 20.5-60.0 [facility] Comment on above: Performed By: #### C BC ####[facility] W[address]qlzosndr[address] [place], [place] [address]DrAdalberto Pulliam MANUAL DIFF REQ NO Normal [facility] Comment on above: Performed By: #### C BC ####[facility] Xnzrwuyzlc7127 [place] [address]DrAdalberto Pulliam MCH (RBC) [Entitic mass] 30.5 pg Normal 25.9-34.0 [facility] Comment on above: Performed By: #### C BC ####[facility] Ypizzqecqk1670 [place] [address]DrAdalberto Pulliam MCHC (RBC) [Mass/Vol] 33.4 g/dL Normal 29.9-35.2 [facility] Comment on above: Performed By: #### C BC ####[facility] Xsplapdrsn9024 [place] [address]DrAdalberto Pulliam MCV (RBC) [Entitic vol] 91.2 fL Normal 80.0-94.0 [facility] Comment on above: Performed By: #### C BC ####[facility] Umsprejnyu[address] [place], [place] [address]DrAdalberto Pulliam MONO # 0.8 103/ul Normal 0.3-0.8 [facility] Comment on above: Performed By: #### C BC ####[facility] [address]dtpfkehi[address] [place], [place] [address]DrAdalberto Pulliam Monocytes/100 WBC (Bld) 7.6 % Normal 1.7-12.0 [facility] Comment on above: Performed By: #### C BC ####[facility] Numskjszsx230[address] [place], [place] [address]DrAdalberto Pulliam NEUT # 7.0 103/ul Critically high 1.4-6.5 [facility] Comment on above: Performed By: #### C BC ####[facility] Pxdsuwajoc[address] [place], [place] [address]DrAdalberto Pulliam Neutrophils/100 WBC (Bld) 71.2 % Normal 43.0-75.0 [facility] Comment on above: Performed By: #### C BC ####[facility] Wswifbyqcl[address] [place], [place] [address]DrAdalberto Pulliam Platelet mean volume (Bld) [Entitic vol] 8.9 fL Critically low 9.5-13.5 [facility] Comment on above: Performed By: #### C BC ####[facility] Neyvxujcha[address] [place], [place] [address]DrAdalberto Pulliam PLT 217 103/ul Normal 150-450 [facility] Comment on above: Performed By: #### C BC ####[facility] Itdouyuwnq7330 [place] [address]Dr. Garima Heraclio RBC 5.02 106/ul Normal 4.70-6.10 [facility] Comment on above: Performed By: #### C BC ####[facility] Qnmglohinu[address] [place], [place] [address]Dr. Garima Pulliam WBC 9.8 103/ul Normal 4.0-11.0 [facility] Comment on above: Performed By: #### C BC ####[facility] R[address]kqptpeb[address] [place], [place] [address]Dr. Garima Heraclio CRPon 03-18-2023 CRP 0.1 mg/dL Normal <=1.0 [facility] Comment on above: Performed By: #### C RP ####[facility] [address]nxxlyr[address] [place], [place] [address]Dr. Garima Heraclio PROF CHEM 8 (BAS METB)on Anion gap [Moles/Vol] 10.4 mmol/L Normal [facility] Comment on above: Performed By: #### B POSTAL CARRIER, BMP ####[facility] Wantdshnlx766[address] [place], [place] [address]Dr. Garima Heraclio Calcium [Mass/Vol] 8.8 mg/dL Normal 8.5-10.[address] [facility] Comment on above: Performed By: #### B POSTAL CARRIER, BMP ####[facility] Dkrzbdbith[address] [place], [place] [address]Dr. Garima Heraclio Chloride [Moles/Vol] 97 mmol/L Critically low 98-107 [facility] Comment on above: Performed By: #### B POSTAL CARRIER, BMP ####[facility] Arablgzssl45[address] [place], [place] [address]Dr. Garima Pulliam CO2 [Moles/Vol] 31.2 mmol/L Normal 21.0-32.0 [facility] Comment on above: Performed By: #### B POSTAL CARRIER, BMP ####[facility] Sdczjisviz[address] [place], [place] [address]Dr. Garima Pulliam Creatinine [Mass/Vol] 0.91 mg/dL Normal 0.70-1.30 [facility] Comment on above: Performed By: #### B POSTAL CARRIER, BMP ####[facility] Gxhhawnxtx36[address] [place] [address]Dr. Garima Pulliam EGFR-AF SWEDISH >60 Normal >=60 [facility] Comment on above: Performed By: #### B POSTAL CARRIER, BMP ####[facility] Hvwvimabuz8858 [place] [id number]. Garima Pulliam EGFR-NON AF SWEDISH >60 Normal >=60 [facility] Comment on above: Performed By: #### B POSTAL CARRIER, BMP ####[facility] Cixlravtsz5208 [place] [address]Dr. Garima Pulliam Glucose [Mass/Vol] 315 mg/dL Critically high 74-106 T [facility] Comment on above: Performed By: #### B POSTAL CARRIER, BMP ####[facility] Dsuewanpfc3190 [place] [address]Dr. Garima Pulliam Potassium [Moles/Vol] 3.6 mmol/L Normal 3.5-5.1 [facility] Comment on above: Performed By: #### B POSTAL CARRIER, BMP ####[facility] Jgusomyerb9732 [place] [address]Dr. Garima Pulliam Sodium [Moles/Vol] 135 mmol/L Critically low 136-145 Th [facility] Comment on above: Performed By: #### B POSTAL CARRIER, BMP ####[facility] Ihlhkxvnsd9[address] [place] [address]Dr. Garima Pulliam Urea nitrogen [Mass/Vol] 7.0 mg/dL Normal 7.0-18.0 [facility] Comment on above: Performed By: #### B POSTAL CARRIER, BMP ####[facility] Nkuyincvbw[address] [place] [address]Dr. Garima Pulliam Urea nitrogen/Creatinine [Mass ratio] 7.7 mg/mg Normal [facility] Comment on above: Performed By: #### B POSTAL CARRIER, BMP ####[facility] Mghfbatlfs6828 [place] [address]Dr. Garima Pulliam SED RATE WESTERGRENon 2022 SED RATE 8 mm/hr Normal <=20 [facility] Comment on above: Performed By: #### S EDR ####[facility] [address]iyivuxw[address] [place], [place] [address]Dr. Garima Pulliam BNPon 03-16-2023 Natriuretic peptide B (Bld) [Mass/Vol] 241.0 pg/mL Normal <=900.0 [facility] Comment on above: Performed By: #### B POSTAL CARRIER, BMP, HSTROPN ####[facility] [address]axecqz[address] [place], [place] [address]Dr. Garima Heraclio CBC AUTO DIFFon 03-16-2023 BASO # 0.0 103/ul Normal 0.0-0.1 [facility] Comment on above: Performed By: #### C BC ####[facility] Fucigvtchz[address] [place], [place] [address]Dr. Chapisrenu Pulliam Basophils/100 WBC (Bld) 0.2 % Normal 0.2-2.0 [facility] Comment on above: Performed By: #### C BC ####[facility] [address]kter[address] [place], [place] [address]Dr. Garima Pulliam EO # 0.2 103/ul Normal 0.0-0.7 [facility] Comment on above: Performed By: #### C BC ####[facility] Hjxpupglwg[address] [place], [place] [address]Dr. Chapisrenu Pulliam Eosinophils/100 WBC (Bld) 2.7 % Normal 0.9-7.0 [facility] Comment on above: Performed By: #### C BC ####[facility] Erkexrkoks[address] [place], [place] [address]Dr. Garima Pulliam Erythrocyte distribution width (RBC) [Ratio] 13.1 % Normal 11.0-15.0 [facility] Comment on above: Performed By: #### C BC ####[facility] Aecvfwovmh[address] [place], [place] [address]Dr. Garima Pulliam Hematocrit (Bld) [Volume fraction] 41.8 % Critically low 42.0-54.0 [facility] Comment on above: Performed By: #### C BC ####[facility] [address] [place] [address]Dr. Garima Pulliam Hemoglobin (Bld) [Mass/Vol] 14.0 g/dL Normal 14.0-18.0 [facility] Comment on above: Performed By: #### C BC ####[facility] Pzpwdspmig[address] [place] [address]Dr. Garima Pulliam IG # 0.03 10e3/ul Normal 0.00-0.03 [facility] Comment on above: Performed By: #### C BC ####[facility] Rhtrvjazkd[address] [place] [address]Dr. Garima Pulliam IG % 0.3 % Normal 0.0-0.5 [facility] Comment on above: Performed By: #### C BC ####[facility] Aextruheci[address] [place], [place] [address]Dr. Chapisrenu Pulliam LYMPH # 2.1 103/ul Normal 1.2-3.8 [facility] Comment on above: Performed By: #### C BC ####[facility] Vtgaywjqgx[address] [place], [place] [address]Dr. Chapisrenu Pulliam Lymphocytes/100 WBC (Bld) 24.2 % Normal 20.5-60.0 [facility] Comment on above: Performed By: #### C BC ####[facility] Vnatwrtdng[address] [place] [address]Dr. Garima Pulliam MANUAL DIFF REQ NO Normal [facility] Comment on above: Performed By: #### C BC ####[facility] Ajmomoplne119[address] [place] [address]Dr. Garima Pulliam MCH (RBC) [Entitic mass] 30.2 pg Normal 25.9-34.0 [facility] Comment on above: Performed By: #### C BC ####[facility] Ebgpohsjqj5[address] [place] [address]Dr. Garima Pulliam MCHC (RBC) [Mass/Vol] 33.5 g/dL Normal 29.9-35.2 [facility] Comment on above: Performed By: #### C BC ####[facility] [address]othftvg[address] [place] [phone]. Garima Pulliam MCV (RBC) [Entitic vol] 90.1 fL Normal 80.0-94.0 [facility] Comment on above: Performed By: #### C BC ####[facility] Uaxyqaypfk27[address] [place] [id number]. Garima Pulliam MONO # 0.6 103/ul Normal 0.3-0.8 [facility] Comment on above: Performed By: #### C BC ####[facility] Cantonnaxe[address] [place] [address]Dr. Garima Heraclio Monocytes/100 WBC (Bld) 7.4 % Normal 1.7-12.0 [facility] Comment on above: Performed By: #### C BC ####[facility] Yorazwcvra[address] [place], [place] [address]Dr. Garima Pulliam NEUT # 5.6 103/ul Normal 1.4-6.5 [facility] Comment on above: Performed By: #### C BC ####[facility] Mhdqqlkaxs[address] [place], [place] [address]Dr. Garima Heraclio Neutrophils/100 WBC (Bld) 65.2 % Normal 43.0-75.0 [facility] Comment on above: Performed By: #### C BC ####[facility] Rfanhywhnd9[address] [place] [phone]. Garima Heraclio Platelet mean volume (Bld) [Entitic vol] 8.7 fL Critically low 9.5-13.5 [facility] Comment on above: Performed By: #### C BC ####[facility] Qqlasyvmpv[address] [place], [place] [address]Dr. Garima Heraclio PLT 195 103/ul Normal 150-450 [facility] Comment on above: Performed By: #### C BC ####[facility] Ferspsiszu9[address] [place] [phone]. Garima Pulliam RBC 4.64 106/ul Critically low 4.70-6.10 [facility] Comment on above: Performed By: #### C BC ####[facility] Lpgkcluhco[address] [place] [address]Dr. Garima Pulliam WBC 8.6 103/ul Normal 4.0-11.0 [facility] Comment on above: Performed By: #### C BC ####[facility] Llpcnbkhad3043 [place] [address]Dr. Garima Pulliam PROF CHEM 8 (BAS METB)on Anion gap [Moles/Vol] 6.7 mmol/L Normal [facility] Comment on above: Performed By: #### B POSTAL CARRIER, BMP, HSTROPN ####[facility] Jyknuntfgp[address] [place] [address]Dr. Garima Pulliam Calcium [Mass/Vol] 8.8 mg/dL Normal 8.5-10.[address] [facility] Comment on above: Performed By: #### B POSTAL CARRIER, BMP, HSTROPN ####[facility] Wxhdognzqx[address] [place], [place] [address]Dr. Garima Pulliam Chloride [Moles/Vol] 106 mmol/L Normal 98-107 [facility] Comment on above: Performed By: #### B POSTAL CARRIER, BMP, HSTROPN ####[facility] Aofarurwrm69[address] [place], [place] [address]Dr. Garima Pulliam CO2 [Moles/Vol] 31.4 mmol/L Normal 21.0-32.0 [facility] Comment on above: Performed By: #### B POSTAL CARRIER, BMP, HSTROPN ####[facility] Zljlwdtvye[address] [place], [place] [address]Dr. Garima Pulliam Creatinine [Mass/Vol] 0.75 mg/dL Normal 0.70-1.30 [facility] Comment on above: Performed By: #### B POSTAL CARRIER, BMP, HSTROPN ####[facility] Kweptapfmu[address] [place] [address]Dr. Garima Pulliam EGFR-AF SWEDISH >60 Normal >=60 [facility] Comment on above: Performed By: #### B POSTAL CARRIER, BMP, HSTROPN ####[facility] Wotmympzrp16[address] [place] [address]Dr. Garima Pulliam EGFR-NON AF SWEDISH >60 Normal >=60 [facility] Comment on above: Performed By: #### B POSTAL CARRIER, BMP, HSTROPN ####[facility] Vuvnqazafx6793 [place] [address]Dr. Garima Pulliam Glucose [Mass/Vol] 161 mg/dL Critically high 74-106 [facility] Comment on above: Performed By: #### B POSTAL CARRIER, BMP, HSTROPN ####[facility] Nkhnpavftz37[address] [place] [address]Dr. Garima Pulliam Potassium [Moles/Vol] 4.1 mmol/L Normal 3.5-5.1 [facility] Comment on above: Performed By: #### B POSTAL CARRIER, BMP, HSTROPN ####[facility] Sflculehqv9039 [place] [address]Dr. Garima Pulliam Sodium [Moles/Vol] 140 mmol/L Normal 136-[address] [facility] Comment on above: Performed By: #### B POSTAL CARRIER, BMP, HSTROPN ####[facility] Dzmpghioav3329 [place] [address]Dr. Garima Pulliam Urea nitrogen [Mass/Vol] 7.0 mg/dL Normal 7.0-18.0 [facility] Comment on above: Performed By: #### B POSTAL CARRIER, BMP, HSTROPN ####[facility] Otwiiqdfmc8[address] [place] [address]Dr. Garima Pulliam Urea nitrogen/Creatinine [Mass ratio] 9.3 mg/mg Normal [facility] Comment on above: Performed By: #### B POSTAL CARRIER, BMP, HSTROPN ####[facility] Ycimepnnhq65[address] [place] [address]Dr. Garima Pulliam TROPONIN, HIGH SENSITIVITYon 03-16-2023 HSTROP 9.7 pg/mL Normal 4.0-76.1 [facility] Comment on above: Result Comment: CUT- OFF POINTS HAVE BEEN ESTABLISHED BASED ON THE FOURTH UNIVERSAL DEFINITIONS OF MYOCARDIALINFARCTION. THE UPPER REFERENCE LIMIT (URL) OF TROPONIN, DEFINED THE 99TH PERCENTILE OFcTnI DISTRIBUTION IN A REFERENCE POPULATION, HAS BEEN CONFIRMED THE DECISION THRESHOLDFOR [place] DIAGNOSIS. Performed By: #### B POSTAL CARRIER, BMP, HSTROPN ####[facility] Qghjyyjwns95[address] [place] [address]Dr. Garima Pulliam XR CHEST 1 Von 03-16-2023 XR CHEST 1 V Normal [facility] BNPon 03-06-2023 Natriuretic peptide B (Bld) [Mass/Vol] 111.0 pg/mL Normal <=900.0 [facility] Comment on above: Performed By: #### C MP, BNP, CK ####[facility] Iuxwxatyac35[address] [place] [address]Dr. Chapisrenu Pulliam CBC AUTO DIFFon 03-06-2023 BASO # 0.0 103/ul Normal 0.0-0.1 [facility] Comment on above: Performed By: #### C BC ####[facility] D[address]jtmcjovc[address] [place], [place] [address]Dr. Garima Pulliam Basophils/100 WBC (Bld) 0.2 % Normal 0.2-2.0 [facility] Comment on above: Performed By: #### C BC ####[facility] Vxcxxwlmus[address] [place], [place] [address]Dr. Garima Pulliam EO # 0.3 103/ul Normal 0.0-0.7 [facility] Comment on above: Performed By: #### C BC ####[facility] Wyzuarzdfe[address] [place], [place] [address]Dr. Garima Pulliam Eosinophils/100 WBC (Bld) 3.5 % Normal 0.9-7.0 [facility] Comment on above: Performed By: #### C BC ####[facility] Rptftmuqlq[address] [place], [place] [address]Dr. Garima Pulliam Erythrocyte distribution width (RBC) [Ratio] 13.3 % Normal 11.0-15.0 [facility] Comment on above: Performed By: #### C BC ####[facility] [address]occhjdcre[address] [place], [place] [address]Dr. Garima Pulliam Hematocrit (Bld) [Volume fraction] 43.7 % Normal 42.0-54.0 [facility] Comment on above: Performed By: #### C BC ####[facility] Dinnsaeqfn2096 [place] [address]Dr. Garima Pulliam Hemoglobin (Bld) [Mass/Vol] 14.7 g/dL Normal 14.0-18.0 [facility] Comment on above: Performed By: #### C BC ####[facility] Zquecojnys8295 [place] [address]Dr. Chapisrenu Heraclio IG # 0.03 10e3/ul Normal 0.00-0.03 [facility] Comment on above: Performed By: #### C BC ####[facility] Fsetmsqvog[address] [place], [place] [address]Dr. Garima Pulliam IG % 0.4 % Normal 0.0-0.5 [facility] Comment on above: Performed By: #### C BC ####[facility] Ubsseifzqn[address] [place], [place] [address]Dr. Garima Pulliam LYMPH # 2.0 103/ul Normal 1.2-3.8 [facility] Comment on above: Performed By: #### C BC ####[facility] Daslfajwhu57[address] [place], [place] [address]DrAdalberto Pulliam Lymphocytes/100 WBC (Bld) 23.7 % Normal 20.5-60.0 [facility] Comment on above: Performed By: #### C BC ####[facility] Mtrnbdzdyv3587 [place] [address]Dr. Garima Pulliam MANUAL DIFF REQ NO Normal [facility] Comment on above: Performed By: #### C BC ####[facility] Kigawfoomq5532 [place] [phone] Pulliam MCH (RBC) [Entitic mass] 30.1 pg Normal 25.9-34.0 [facility] Comment on above: Performed By: #### C BC ####[facility] Udigbnlhtr9130 [place] [address]Dr. Garima Pulliam MCHC (RBC) [Mass/Vol] 33.6 g/dL Normal 29.9-35.2 [facility] Comment on above: Performed By: #### C BC ####[facility] Dkrhhrbxns6249 [place] [address]Dr. Garima Heraclio MCV (RBC) [Entitic vol] 89.4 fL Normal 80.0-94.0 [facility] Comment on above: Performed By: #### C BC ####[facility] Fzeyoeqejt1323 [place] [address]Dr. Garima Pulliam MONO # 0.8 103/ul Normal 0.3-0.8 [facility] Comment on above: Performed By: #### C BC ####[facility] Benuevyhvy2972 [place] [address]Dr. Garima Pulliam Monocytes/100 WBC (Bld) 9.0 % Normal 1.7-12.0 [facility] Comment on above: Performed By: #### C BC ####[facility] Vlummqsnyz[address] [place], [place] [address]Dr. Garima Pulliam NEUT # 5.4 103/ul Normal 1.4-6.5 [facility] Comment on above: Performed By: #### C BC ####[facility] [address]afnfbwvsp[address] [place], [place] [address]Dr. Garima Pulliam Neutrophils/100 WBC (Bld) 63.2 % Normal 43.0-75.0 [facility] Comment on above: Performed By: #### C BC ####[facility] Fncztarjog39[address] [place], [place] [address]Dr. Garima Pulliam Platelet mean volume (Bld) [Entitic vol] 9.0 fL Critically low 9.5-13.5 [facility] Comment on above: Performed By: #### C BC ####[facility] [address]suqvff[address] [place], [place] [address]Dr. Garima Pulliam PLT 218 103/ul Normal 150-450 [facility] Comment on above: Performed By: #### C BC ####[facility] Rexszpqygd1927 [place] [phone]. Garima Pulliam RBC 4.89 106/ul Normal 4.70-6.10 [facility] Comment on above: Performed By: #### C BC ####[facility] Tnawuohmqj1334 [place] [address]Dr. Garima Pulliam WBC 8.5 103/ul Normal 4.0-11.0 [facility] Comment on above: Performed By: #### C BC ####[facility] Blsoajsvyh6645 [place] [address]Dr. Garima Pulliam CPKon 03-06-2023 CK [Catalytic activity/Vol] 191 U/L Normal 39-308 [facility] Comment on above: Performed By: #### C MP, BNP, CK ####[facility] Qvnokquvta1607 [place] [address]Dr. Garima Pulliam PROF 14(COMP METB)on 023 Albumin [Mass/Vol] 3.6 g/dL Normal 3.4-5.[address] [facility] Comment on above: Performed By: #### C MP, BNP, CK ####[facility] Puxexzwrup4[address] [place] [address]Dr. Garima Pulliam Albumin/Globulin [Mass ratio] 1.2 {ratio} Normal [facility] Comment on above: Performed By: #### C MP, BNP, CK ####[facility] Gdwfjrmtfc2375 [place] [address]Dr. Garima Pulliam ALP [Catalytic activity/Vol] 91 U/L Normal 46-116 [facility] Comment on above: Performed By: #### C MP, BNP, CK ####[facility] Adthvzpgkn6908 [place] [address]Dr. Garima Pulliam ALT [Catalytic activity/Vol] 33 U/L Normal 16-63 [facility] Comment on above: Performed By: #### C MP, BNP, CK ####[facility] Bntjzfxixy3215 [place] [address]Dr. Garima Pulliam Anion gap [Moles/Vol] 10.3 mmol/L Normal [facility] Comment on above: Performed By: #### C MP, BNP, CK ####[facility] Zieocygxum5162 [place] [address]Dr. Garima Pulliam AST [Catalytic activity/Vol] 17 U/L Normal 15-37 [facility] Comment on above: Performed By: #### C MP, BNP, CK ####[facility] Vziozbmjgv7539 [place] [address]Dr. Garima Pulliam Bilirubin [Mass/Vol] 0.4 mg/dL Normal 0.2-1.0 [facility] Comment on above: Performed By: #### C MP, BNP, CK ####[facility] Bzqyjqjnih9045 [place] [address]Dr. Garima Pulliam Calcium [Mass/Vol] 9.1 mg/dL Normal 8.5-10.1 [facility] Comment on above: Performed By: #### C MP, BNP, CK ####[facility] Irgensulbk9210 [place] [address]Dr. Garima Pulliam Chloride [Moles/Vol] 102 mmol/L Normal 98-107 [facility] Comment on above: Performed By: #### C MP, BNP, CK ####[facility] Guxvkkzdpx5102 [place] [address]Dr. Garima Pulliam CO2 [Moles/Vol] 29.7 mmol/L Normal 21.0-32.0 [facility] Comment on above: Performed By: #### C MP, BNP, CK ####[facility] Ocpmvuwvzs1487 [place] [address]Dr. Garima Pulliam Creatinine [Mass/Vol] 0.79 mg/dL Normal 0.70-1.30 [facility] Comment on above: Performed By: #### C MP, BNP, CK ####[facility] Eeevxlhkkx0656 [place] [address]Dr. Garima Pulliam EGFR-AF SWEDISH >60 Normal >=60 [facility] Comment on above: Performed By: #### C MP, BNP, CK ####[facility] Tvimtypurj7018 [place] [address]Dr. Garima Pulliam EGFR-NON AF SWEDISH >60 Normal >=60 [facility] Comment on above: Performed By: #### C MP, BNP, CK ####[facility] Lrkorzoftu3731 [place] [address]Dr. Garima Pulliam Globulin (S) [Mass/Vol] 3.0 g/dL Normal [facility] Comment on above: Performed By: #### C MP, BNP, CK ####[facility] Aqrijnllld4901 [place] [address]Dr. Garima Pulliam Glucose [Mass/Vol] 202 mg/dL Critically high 74-106 [facility] Comment on above: Performed By: #### C MP, BNP, CK ####[facility] Nxvfahekit5898 [place] [address]Dr. Garima Pulliam Potassium [Moles/Vol] 4.0 mmol/L Normal 3.5-5.1 [facility] Comment on above: Performed By: #### C MP, BNP, CK ####[facility] Wumiazwbnc0655 [place] [address]Dr. Garima Pulliam Protein [Mass/Vol] 6.6 g/dL Normal 6.4-8.[address] [facility] Comment on above: Performed By: #### C MP, BNP, CK ####[facility] [address]jbtjq[address] [place], [place] [address]Dr. Garima Pulliam Sodium [Moles/Vol] 138 mmol/L Normal 136-[address] [facility] Comment on above: Performed By: #### C MP, BNP, CK ####[facility] Itasqsjqmm32[address] [place], [place] [address]Dr. Garima Pulliam Urea nitrogen [Mass/Vol] 10.0 mg/dL Normal 7.0-18.0 [facility] Comment on above: Performed By: #### C MP, BNP, CK ####[facility] Llqwjolked9194 [place] [address]Dr. Garima Pulliam Urea nitrogen/Creatinine [Mass ratio] 12.7 mg/mg Normal [facility] Comment on above: Performed By: #### C MP, BNP, CK ####[facility] Ohgaprdpri3412 [place] [address]Dr. Garima Pulliam US VERONICA DOP LEG BILon 023 US VERONICA DOP LEG BENOIT Normal [facility] CBC AUTO DIFFon 01-13-2023 BASO # 0.0 103/ul Normal 0.0-0.1 [facility] Comment on above: Performed By: #### C BC ####[facility] Hjpexcgnhn3445 [place] [phone]. Chapisrenu Pulliam Basophils/100 WBC (Bld) 0.0 % Critically low 0.2-2.0 [facility] Comment on above: Performed By: #### C BC ####[facility] Touqithkfk9817 [place] [address]Dr. Garima Pulliam EO # 0.0 103/ul Normal 0.0-0.7 [facility] Comment on above: Performed By: #### C BC ####[facility] [address]qfswnqf[address] [place], [place] [address]Dr. Garima Pulliam Eosinophils/100 WBC (Bld) 0.0 % Critically low 0.9-7.0 [facility] Comment on above: Performed By: #### C BC ####[facility] Ddsynmfsyq2916 [place] [address]Dr. Garima Pulliam Erythrocyte distribution width (RBC) [Ratio] 13.2 % Normal 11.0-15.0 [facility] Comment on above: Performed By: #### C BC ####[facility] Hzmecgzzeb[address] [place], [place] [address]Dr. Garima Pulliam Hematocrit (Bld) [Volume fraction] 46.7 % Normal 42.0-54.0 [facility] Comment on above: Performed By: #### C BC ####[facility] Rnqdgprmot[address] [place], [place] [address]Dr. Garima Pulliam Hemoglobin (Bld) [Mass/Vol] 15.6 g/dL Normal 14.0-18.0 [facility] Comment on above: Performed By: #### C BC ####[facility] Uraeqxcuzg[address] [place], [place] [address]Dr. Garima Pulliam IG # 0.01 10e3/ul Normal 0.00-0.03 [facility] Comment on above: Performed By: #### C BC ####[facility] Uwctpwdalr6745 [place] [phone]. Garima Pulliam IG % 0.2 % Normal 0.0-0.5 [facility] Comment on above: Performed By: #### C BC ####[facility] Wpfkokurfc0660 [place] [address]Dr. Garima Pulliam LYMPH # 0.8 103/ul Critically low 1.2-3.8 [facility] Comment on above: Performed By: #### C BC ####[facility] Zmztltiubz8938 [place] [address]Dr. Garima Pulliam Lymphocytes/100 WBC (Bld) 12.7 % Critically low 20.5-60.0 [facility] Comment on above: Performed By: #### C BC ####[facility] Ctyocwgswd2813 [place] [address]Dr. Garima Pulliam MANUAL DIFF REQ NO Normal [facility] Comment on above: Performed By: #### C BC ####[facility] Ciwycqfszd1770 [place] [phone]. Garima Pulliam MCH (RBC) [Entitic mass] 30.2 pg Normal 25.9-34.0 [facility] Comment on above: Performed By: #### C BC ####[facility] Fvelpwdntr4205 [place] [address]Dr. Garima Pulliam MCHC (RBC) [Mass/Vol] 33.4 g/dL Normal 29.9-35.2 [facility] Comment on above: Performed By: #### C BC ####[facility] Zlvnmxlaep7718 [place] [address]Dr. Garima Pulliam MCV (RBC) [Entitic vol] 90.3 fL Normal 80.0-94.0 [facility] Comment on above: Performed By: #### C BC ####[facility] Whbnjcijpc8679 [place] [address]Dr. Garima Heraclio MONO # 0.1 103/ul Critically low 0.3-0.8 [facility] Comment on above: Performed By: #### C BC ####[facility] Rdjekiyhkx9362 [place] [address]Dr. Garima Pulliam Monocytes/100 WBC (Bld) 0.9 % Critically low 1.7-12.0 [facility] Comment on above: Performed By: #### C BC ####[facility] Izaxdsbmth2412 [place] [address]Dr. Garima Pulliam NEUT # 5.6 103/ul Normal 1.4-6.5 [facility] Comment on above: Performed By: #### C BC ####[facility] Zipvnbeddw0894 [place] [address]Dr. Garima Pulliam Neutrophils/100 WBC (Bld) 86.2 % Critically high 43.0-75.0 [facility] Comment on above: Performed By: #### C BC ####[facility] Xxlwdcsnay3697 [place] [address]Dr. Garima Pulliam Platelet mean volume (Bld) [Entitic vol] 9.1 fL Critically low 9.5-13.5 [facility] Comment on above: Performed By: #### C BC ####[facility] Djqrohqmpz[address] [place], [place] [address]Dr. Garima Pulliam PLT 169 103/ul Normal 150-450 [facility] Comment on above: Performed By: #### C BC ####[facility] Krohuivddy[address] [place], [place] [address]Dr. Garima Pulliam RBC 5.17 106/ul Normal 4.70-6.10 [facility] Comment on above: Performed By: #### C BC ####[facility] Wmommllwqk[address] [place], [place] [address]Dr. Garima Pulliam WBC 6.5 103/ul Normal 4.0-11.0 [facility] Comment on above: Performed By: #### C BC ####[facility] [address]cjlxxkbx[address] [place], [place] [address]Dr. Garima Pulliam D-DIMERon 01-13-2023 D-DIMER 0.41 mg/L FEU Normal <=0.59 [facility] Comment on above: Performed By: #### D DIM ####[facility] Qlcgakacow3213 [place] [address]Dr. Garima Pulliam D-DIMER COMMENTS SEE BELOW Normal [facility] Comment on above: Result Comment: Incr [...] generalized hospitalization. Performed By: #### D DIM ####[facility] Ripainbymp[address] [place], [place] [address]Dr. Garima Pulliam PROF 14(COMP METB)on 023 Albumin [Mass/Vol] 3.4 g/dL Normal 3.4-5.[address] [facility] Comment on above: Performed By: #### C MP ####[facility] Vyooiffsts[address] [place], [place] [address]Dr. Garima Pulliam Albumin/Globulin [Mass ratio] 1.3 {ratio} Normal [facility] Comment on above: Performed By: #### C MP ####[facility] [address]vhwdeqbg[address] [place], [place] [address]Dr. Garima Pulliam ALP [Catalytic activity/Vol] 83 U/L Normal 46-116 [facility] Comment on above: Performed By: #### C MP ####[facility] [address]xzvzmndi[address] [place], [place] [address]Dr. Garima Pulliam ALT [Catalytic activity/Vol] 25 U/L Normal 16-63 [facility] [facility] Comment on above: Performed By: #### C MP ####[facility] [address]fjmgh[address] [place] [address]Dr. Garima Pulliam Anion gap [Moles/Vol] 14.5 mmol/L Normal [facility] Comment on above: Performed By: #### C MP ####[facility] Oyieebgwfy[address] [place], [place] [address]Dr. Garima Pulliam AST [Catalytic activity/Vol] 19 U/L Normal 15-37 [facility] Comment on above: Performed By: #### C MP ####[facility] Xcfwoqwqct2[address] [place], [place] [address]Dr. Garima Pulliam Bilirubin [Mass/Vol] 0.4 mg/dL Normal 0.2-1.0 [facility] Comment on above: Performed By: #### C MP ####[facility] Pjsacmrabe[address] [place], [place] [address]Dr. Garima Pulliam Calcium [Mass/Vol] 8.7 mg/dL Normal 8.5-10.[address] [facility] Comment on above: Performed By: #### C MP ####[facility] Oesntuwbav[address] [place], [place] [address]Dr. Garima Pulliam Chloride [Moles/Vol] 104 mmol/L Normal 98-107 [facility] Comment on above: Performed By: #### C MP ####[facility] Xnmmsgukna9565[address] [place], [place] [address]Dr. Garima Pulliam CO2 [Moles/Vol] 24.5 mmol/L Normal 21.0-32.0 [facility] Comment on above: Performed By: #### C MP ####[facility] Sdhhfydixt[address] [place], [place] [address]Dr. Garima Pulliam Creatinine [Mass/Vol] 0.70 mg/dL Normal 0.70-1.30 [facility] Comment on above: Performed By: #### C MP ####[facility] Qfnbrbbhjv39[address] [place], [place] [address]Dr. Garima Heraclio EGFR-AF SWEDISH >60 Normal >=60 [facility] Comment on above: Performed By: #### C MP ####[facility] Crbyujtwof0720[address] [place], [place] [address]Dr. Chapisrenu Heraclio EGFR-NON AF SWEDISH >60 Normal >=60 [facility] Comment on above: Performed By: #### C MP ####[facility] Kwvidzldsd9600[address] [place], [place] [address]Dr. Chapisrenu Pulliam Globulin (S) [Mass/Vol] 2.6 g/dL Normal [facility] Comment on above: Performed By: #### C MP ####[facility] Bdzdiislyi[address] [place] [address]Dr. Garima Pulliam Glucose [Mass/Vol] 196 mg/dL Critically high 74-106 [facility] Comment on above: Performed By: #### C MP ####[facility] Enbzotqxbg[address] [place] [address]Dr. Garima Pulliam Potassium [Moles/Vol] 4.0 mmol/L Normal 3.5-5.1 [facility] Comment on above: Performed By: #### C MP ####[facility] Ypjlfovcuj[address] [place] [address]Dr. Garima Pulliam Protein [Mass/Vol] 6.0 g/dL Critically low 6.4-8.2 [facility] Comment on above: Performed By: #### C MP ####[facility] Nbaooobyjt7437[address] [place], [place] [address]Dr. Garima Pulliam Sodium [Moles/Vol] 139 mmol/L Normal 136-[address] [facility] Comment on above: Performed By: #### C MP ####[facility] Qyovspeorq0055[address] [place], [place] [address]Dr. Garima Pulliam Urea nitrogen [Mass/Vol] 7.0 mg/dL Normal 7.0-18.0 [facility] Comment on above: Performed By: #### C MP ####[facility] Yoqzkoiqwb12[address] [place], [place] [address]Dr. Garima Heraclio Urea nitrogen/Creatinine [Mass ratio] 10.0 mg/mg Normal [facility] Comment on above: Performed By: #### C MP ####[facility] Wbosriuzeb0797[address] [place], [place] [address]Dr. Garima Heraclio BNPon 01-12-2023 Natriuretic peptide B (Bld) [Mass/Vol] 141.0 pg/mL Normal <=900.0 [facility] Comment on above: Performed By: #### C MP, BNP, HSTROPN ####[facility] Imqlqomdir[address] [place], [place] [address]Dr. Garima Heraclio CBC AUTO DIFFon 01-12-2023 BASO # 0.0 103/ul Normal 0.0-0.1 [facility] Comment on above: Performed By: #### C BC ####[facility] [address]ia[address] [place] [id number]. Garima Heraclio Basophils/100 WBC (Bld) 0.2 % Normal 0.2-2.0 [facility] Comment on above: Performed By: #### C BC ####[facility] Kqonuxbird[address] [place] [address]Dr. Garima Heraclio EO # 0.2 103/ul Normal 0.0-0.7 [facility] Comment on above: Performed By: #### C BC ####[facility] Evprswrlew[address] [place] [address]Dr. Garima Heraclio Eosinophils/100 WBC (Bld) 2.7 % Normal 0.9-7.0 [facility] Comment on above: Performed By: #### C BC ####[facility] Omnshwdpmm626[address] [place], [place] [address]Dr. Garima Pulliam Erythrocyte distribution width (RBC) [Ratio] 13.3 % Normal 11.0-15.0 [facility] Comment on above: Performed By: #### C BC ####[facility] Cxqauqvgwt4310[address] [place], [place] [address]Dr. Garima Pulliam Hematocrit (Bld) [Volume fraction] 42.3 % Normal 42.0-54.0 [facility] Comment on above: Performed By: #### C BC ####[facility] Iglivgygcf8[address] [place], [place] [address]Dr. Garima Pulliam Hemoglobin (Bld) [Mass/Vol] 14.3 g/dL Normal 14.0-18.0 [facility] Comment on above: Performed By: #### C BC ####[facility] Xmjbuvqpxt6927[address] [place], [place] [address]Dr. Garima Pulliam IG # 0.02 10e3/ul Normal 0.00-0.03 [facility] Comment on above: Performed By: #### C BC ####[facility] Hernrlqjnu[address] [place] [address]Dr. Garima Pulliam IG % 0.2 % Normal 0.0-0.5 [facility] Comment on above: Performed By: #### C BC ####[facility] [address]vmivjwdmz33[address] [place] [address]Dr. Garima Pulliam LYMPH # 2.6 103/ul Normal 1.2-3.8 [facility] Comment on above: Performed By: #### C BC ####[facility] Vo[address]bvwrjk[address] [place] [address]Dr. Garima Heraclio Lymphocytes/100 WBC (Bld) 29.6 % Normal 20.5-60.0 [facility] Comment on above: Performed By: #### C BC ####[facility] Lrqmsldpkw[address] [place] [address]Dr. Garima Heraclio MANUAL DIFF REQ NO Normal [facility] Comment on above: Performed By: #### C BC ####[facility] Ejpobrqxnq5[address] [place] [address]Dr. Garima Pulliam MCH (RBC) [Entitic mass] 30.2 pg Normal 25.9-34.0 [facility] Comment on above: Performed By: #### C BC ####[facility] Ynoptsmxzf87[address] [place] [address]Dr. Garima Pulliam MCHC (RBC) [Mass/Vol] 33.8 g/dL Normal 29.9-35.2 [facility] Comment on above: Performed By: #### C BC ####[facility] Irtpmjiajv52[address] [place] [address]Dr. Garima Uplliam MCV (RBC) [Entitic vol] 89.2 fL Normal 80.0-94.0 [facility] Comment on above: Performed By: #### C BC ####[facility] Wstmmykbbt6839[address] [place], [place] [address]Dr. Chapisrenu Pulliam MONO # 0.7 103/ul Normal 0.3-0.8 [facility] Comment on above: Performed By: #### C BC ####[facility] Btjh[address] [place] [address]Dr. Garima Pulliam Monocytes/100 WBC (Bld) 8.3 % Normal 1.7-12.0 [facility] Comment on above: Performed By: #### C BC ####[facility] Mlxjmooona3987 [place] [address]Dr. Garima Pulliam NEUT # 5.1 103/ul Normal 1.4-6.5 [facility] Comment on above: Performed By: #### C BC ####[facility] Bsusvjcoaj66[address] [place] [address]Dr. Garima Pulliam Neutrophils/100 WBC (Bld) 59.0 % Normal 43.0-75.0 [facility] Comment on above: Performed By: #### C BC ####[facility] Vboiloaboq5[address] [place] [address]Dr. Garima Pulliam Platelet mean volume (Bld) [Entitic vol] 8.7 fL Critically low 9.5-13.5 [facility] Comment on above: Performed By: #### C BC ####[facility] Ugirbgxwns75[address] [place] [address]Dr. Garima Pulliam PLT 182 103/ul Normal 150-450 [facility] Comment on above: Performed By: #### C BC ####[facility] Fopxkbgdue5[address] [place] [address]Dr. Garima Pulliam RBC 4.74 106/ul Normal 4.70-6.10 [facility] Comment on above: Performed By: #### C BC ####[facility] Rlbokmeqxm[address] [place], [place] [address]Dr. Garima Pulliam WBC 8.7 103/ul Normal 4.0-11.0 [facility] Comment on above: Performed By: #### C BC ####[facility] Dzukncnisc[address] [place], [place] [address]Dr. Garima Pulliam Covid-19 PCR (CVDTB)on 12-25 SARS-CoV-2 (COVID-19) RNA MARIE+probe Ql (Unsp spec) Not detected Normal NOT DETECTED [facility] Comment on above: Result Comment: When [...] for this test is supported by the [place] of Health and Human Service's declaration that [...] be used). Performed By: #### C VDTBH ####[facility] Ugctccgkmr25[address] [place] [address]Dr. Garima Pulliam PROF 14(COMP METB)on 023 Albumin [Mass/Vol] 3.6 g/dL Normal 3.4-5.[address] [facility] Comment on above: Performed By: #### C MP, BNP, HSTROPN ####[facility] Mkewkgjmxh[address] [place] [address]Dr. Garima Pulliam Albumin/Globulin [Mass ratio] 1.5 {ratio} Normal [facility] Comment on above: Performed By: #### C MP, BNP, HSTROPN ####[facility] Fudvaaxiih[address] [place] [address]Dr. Garima Pulliam ALP [Catalytic activity/Vol] 79 U/L Normal 46-116 [facility] Comment on above: Performed By: #### C MP, BNP, HSTROPN ####[facility] Rtrgtblmlz6038 [place] [address]Dr. Garima Pulliam ALT [Catalytic activity/Vol] 27 U/L Normal 16-63 [facility] Comment on above: Performed By: #### C MP, BNP, HSTROPN ####[facility] Jwaxgdkjig[address] [place] [address]Dr. Garima uPlliam Anion gap [Moles/Vol] 11.7 mmol/L Normal [facility] Comment on above: Performed By: #### C MP, BNP, HSTROPN ####[facility] Kczknofxel[address] [place] [address]Dr. Garima Pulliam AST [Catalytic activity/Vol] 21 U/L Normal 15-37 [facility] Comment on above: Performed By: #### C MP, BNP, HSTROPN ####[facility] Eiewlloloo6[address] [place] [address]Dr. Garima Pulliam Bilirubin [Mass/Vol] 0.3 mg/dL Normal 0.2-1.0 [facility] Comment on above: Performed By: #### C MP, BNP, HSTROPN ####[facility] Ctvqvdqhtj64[address] [place] [address]Dr. Garima Pulliam Calcium [Mass/Vol] 8.9 mg/dL Normal 8.5-10.[address] [facility] Comment on above: Performed By: #### C MP, BNP, HSTROPN ####[facility] [address]fphcuhrse[address] [place] [address]Dr. Garima Pulliam Chloride [Moles/Vol] 107 mmol/L Normal 98-107 [facility] Comment on above: Performed By: #### C MP, BNP, HSTROPN ####[facility] Gnxayrgkie[address] [place] [address]Dr. Garima Pulliam CO2 [Moles/Vol] 26.0 mmol/L Normal 21.0-32.0 [facility] Comment on above: Performed By: #### C MP, BNP, HSTROPN ####[facility] Qlqodwibsv[address] [place] [address]Dr. Garima Pulliam Creatinine [Mass/Vol] 0.65 mg/dL Critically low 0.70-1.30 [facility] Comment on above: Performed By: #### C MP, BNP, HSTROPN ####[facility] Lzulgbzsiy[address] [place] [address]Dr. Yilan Pulliam EGFR-AF SWEDISH >60 Normal >=60 [facility] Comment on above: Performed By: #### C MP, BNP, HSTROPN ####[facility] Zqmoqokrjx15[address] [place] [address]Dr. Garima Pulliam EGFR-NON AF SWEDISH >60 Normal >=60 [facility] Comment on above: Performed By: #### C MP, BNP, HSTROPN ####[facility] Krextxpdfl3[address] [place] [address]Dr. Garima Pulliam Globulin (S) [Mass/Vol] 2.4 g/dL Normal [facility] Comment on above: Performed By: #### C MP, BNP, HSTROPN ####[facility] Osirinblmj8[address] [place], [place] [address]Dr. Garima Pulliam Glucose [Mass/Vol] 85 mg/dL Normal 74-[address] [facility] Comment on above: Performed By: #### C MP, BNP, HSTROPN ####[facility] Fwddqupbxs1842 [place] [address]Dr. Garima Pulliam Potassium [Moles/Vol] 3.7 mmol/L Normal 3.5-5.1 [facility] Comment on above: Performed By: #### C MP, BNP, HSTROPN ####[facility] Snlgliniaj[address] [place] [address]Dr. Garima Pulliam Protein [Mass/Vol] 6.0 g/dL Critically low 6.4-8.2 [facility] Comment on above: Performed By: #### C MP, BNP, HSTROPN ####[facility] Znfjmgihtn49[address] [place] [address]Dr. Garima Pulliam Sodium [Moles/Vol] 141 mmol/L Normal 136-145 [facility] Comment on above: Performed By: #### C MP, BNP, HSTROPN ####[facility] Kwwjewjygh7[address] [place] [address]Dr. Garima Pulliam Urea nitrogen [Mass/Vol] 5.0 mg/dL Critically low 7.0-18.0 [facility] Comment on above: Performed By: #### C MP, BNP, HSTROPN ####[facility] Eggkkeotpb[address] [place] [address]Dr. Garima Pulliam Urea nitrogen/Creatinine [Mass ratio] 7.7 mg/mg Normal [facility] Comment on above: Performed By: #### C MP, BNP, HSTROPN ####[facility] Inhetimgme3[address] [place] [address]Dr. Garima Pulliam PROTIMEon 01-12-2023 INR Coag (PPP) [Relative time] 1.16 {INR} Normal [facility] Comment on above: Performed By: #### P TT, PT ####[facility] Zjwejppbui[address] [place] [address]Dr. Garima Pulliam INR GUIDELINES SEE BELOW Normal [facility] Comment on above: Result Comment: WESLEY RED INR: 2.0 - 3.0 CONDITIONS NOT LISTED BELOW 2.5 - 3.5 FOR PROSTHETIC HEART VALVE REPLACEMENT 2.5 - 3.5 RECURRENT THROMBOSIS Performed By: #### P TT, PT ####[facility] [address]qbpz[address]cec[address] [place], [place] [address]Dr. Garima Pulliam PT Coag (PPP) [Time] 12.2 s Critically high 9.0-11.6 [facility] Comment on above: Performed By: #### P TT, PT ####[facility] Djnfpwftzh[address] [place] [address]Dr. Garima Pulliam PTTon 01-12-2023 aPTT Coag (Bld) [Time] 29.1 s Normal 22.3-36.2 [facility] Comment on above: Performed By: #### P TT, PT ####[facility] Zohwltdudp[address] [place], [place] [address]Dr. Garima Pulliam TROPONIN, HIGH SENSITIVITYon 01-12-2023 HSTROP 10.3 pg/mL Normal 4.0-76.1 [facility] Comment on above: Result Comment: CUT- OFF POINTS HAVE BEEN ESTABLISHED BASED ON THE FOURTH UNIVERSAL DEFINITIONS OF MYOCARDIALINFARCTION. THE UPPER REFERENCE LIMIT (URL) OF TROPONIN, DEFINED THE 99TH PERCENTILE OFcTnI DISTRIBUTION IN A REFERENCE POPULATION, HAS BEEN CONFIRMED THE DECISION THRESHOLDFOR [place] DIAGNOSIS. Performed By: #### H STROPN ####[facility] Mkqnqddipw[address] [place] [address]Dr. Garima Pulliam HSTROP 9.2 pg/mL Normal 4.0-76.1 [facility] Comment on above: Result Comment: CUT- OFF POINTS HAVE BEEN ESTABLISHED BASED ON THE FOURTH UNIVERSAL DEFINITIONS OF MYOCARDIALINFARCTION. THE UPPER REFERENCE LIMIT (URL) OF TROPONIN, DEFINED THE 99TH PERCENTILE OFcTnI DISTRIBUTION IN A REFERENCE POPULATION, HAS BEEN CONFIRMED THE DECISION THRESHOLDFOR [place] DIAGNOSIS. Performed By: #### C MP, BNP, HSTROPN ####[facility] [address]sejluzwob[address] [place] [address]Dr. Garima Pulliam XR CHEST 1 Von 01-12-2023 XR CHEST 1 V Normal [facility] XR CHEST 1 Von 01-01-2023 XR CHEST 1 V Normal [facility] CARDIAC NASH 3-6on 3 CK [Catalytic activity/Vol] 196 U/L Normal 39-308 [facility] Comment on above: Performed By: #### C MREP ####[facility] Wtqkajbhiq72[address] [place] [address]Dr. Garima Pulliam CK.MB [Mass/Vol] 7.41 ng/mL Critically high <=3.60 [facility] Comment on above: Performed By: #### C MREP ####[facility] Scimyyqgkt22[address] [place] [address]Dr. Garima Pulliam HSTROP 10.3 pg/mL Normal 4.0-76.1 [facility] Comment on above: Result Comment: CUT- OFF POINTS HAVE BEEN ESTABLISHED BASED ON THE FOURTH UNIVERSAL DEFINITIONS OF MYOCARDIALINFARCTION. THE UPPER REFERENCE LIMIT (URL) OF TROPONIN, DEFINED THE 99TH PERCENTILE OFcTnI DISTRIBUTION IN A REFERENCE POPULATION, HAS BEEN CONFIRMED THE DECISION THRESHOLDFOR [place] DIAGNOSIS. Performed By: #### C MREP ####[facility] Tvkfjpxznc[address] [place] [phone]. Garima Pulliam XR CHEST 1 Von 12-26-2022 XR CHEST 1 V Normal [facility] BNPon 12-25-2022 Natriuretic peptide B (Bld) [Mass/Vol] 98.0 pg/mL Normal <=900.0 [facility] Comment on above: Performed By: #### B MARVIN FRENCH CMADM ####[facility] Apjvhhgauq[address] [place] [address]Dr. Garima Pulliam CARDIAC NASH ADMITon 023 CK [Catalytic activity/Vol] 208 U/L Normal 39-308 [facility] Comment on above: Performed By: #### B MARVIN FRENCH CMADM ####[facility] Llhmahxvzo3079 [place] [address]Dr. Garima Pulliam CK.MB [Mass/Vol] 7.63 ng/mL Critically high <=3.60 [facility] Comment on above: Performed By: #### B MARVIN FRENCH CMADM ####[facility] Acvjolpwpr[address] [place], [place] [address]Dr. Garima Pulliam HSTROP 8.8 pg/mL Normal 4.0-76.1 [facility] Comment on above: Result Comment: CUT- OFF POINTS HAVE BEEN ESTABLISHED BASED ON THE FOURTH UNIVERSAL DEFINITIONS OF MYOCARDIALINFARCTION. THE UPPER REFERENCE LIMIT (URL) OF TROPONIN, DEFINED THE 99TH PERCENTILE OFcTnI DISTRIBUTION IN A REFERENCE POPULATION, HAS BEEN CONFIRMED THE DECISION THRESHOLDFOR [place] DIAGNOSIS. Performed By: #### B MARVIN FRENCH CMADM ####[facility] Uyaergqghk[address] [place], [place] [address]Dr. Garima Pulliam DORIS 83 ng/mL Normal 16-96 [facility] Comment on above: Performed By: #### B MARVIN FRENCH CMADM ####[facility] Zcaiffifbv423[address] [place], [place] [address]Dr. Garima Pulliam CBC AUTO DIFFon 12-25-2022 BASO # 0.0 103/ul Normal 0.0-0.1 [facility] Comment on above: Performed By: #### C BC ####[facility] Kxmmpuvvkq7[address] [place], [place] [address]Dr. Garima Pulliam Basophils/100 WBC (Bld) 0.0 % Critically low 0.2-2.0 [facility] Comment on above: Performed By: #### C BC ####[facility] Jkvluavlje07[address] [place] [address]Dr. Garima Pulliam EO # 0.0 103/ul Normal 0.0-0.7 [facility] Comment on above: Performed By: #### C BC ####[facility] Ufgdnxufso[address] [place], [place] [address]Dr. Garima Pulliam Eosinophils/100 WBC (Bld) 0.7 % Critically low 0.9-7.0 [facility] Comment on above: Performed By: #### C BC ####[facility] [address]jykpwmpp[address] [place], [place] [address]Dr. Garima Pulliam Erythrocyte distribution width (RBC) [Ratio] 13.4 % Normal 11.0-15.0 [facility] Comment on above: Performed By: #### C BC ####[facility] Uxithgrqey9[address] [place], [place] [address]Dr. Garima Pulliam Hematocrit (Bld) [Volume fraction] 42.9 % Normal 42.0-54.0 [facility] Comment on above: Performed By: #### C BC ####[facility] Fktqefphoj[address] [place], [place] [address]Dr. Garima Pulliam Hemoglobin (Bld) [Mass/Vol] 14.4 g/dL Normal 14.0-18.0 [facility] Comment on above: Performed By: #### C BC ####[facility] Jsqodfrrpe119[address] [place], [place] [address]Dr. Garima Pulliam IG # 0.00 10e3/ul Normal 0.00-0.03 [facility] Comment on above: Performed By: #### C BC ####[facility] Igdhsuukmx40[address] [place], [place] [address]Dr. Garima Pulliam IG % 0.0 % Normal 0.0-0.5 [facility] Comment on above: Performed By: #### C BC ####[facility] Salwdgazdy64[address] [place], [place] [address]Dr. Garima Pulliam LYMPH # 2.4 103/ul Normal 1.2-3.8 [facility] Comment on above: Performed By: #### C BC ####[facility] Kmxedkevth1603 [place] [phone]. Chapisrenu Pulliam Lymphocytes/100 WBC (Bld) 29.2 % Normal 20.5-60.0 [facility] Comment on above: Performed By: #### C BC ####[facility] Weefvucjok59[address] [place] [phone]. Garima Pulliam MANUAL DIFF REQ NO Normal [facility] Comment on above: Performed By: #### C BC ####[facility] Xykqtafssv8341 [place] [phone]. Garima Pulliam MCH (RBC) [Entitic mass] 30.7 pg Normal 25.9-34.0 [facility] Comment on above: Performed By: #### C BC ####[facility] Nwagqlvjzg[address] [place], [place] [address]Dr. Garima Pulliam MCHC (RBC) [Mass/Vol] 33.6 g/dL Normal 29.9-35.2 [facility] Comment on above: Performed By: #### C BC ####[facility] Ukztfjxhxh[address] [place], [place] [address]Dr. Garima Pulliam MCV (RBC) [Entitic vol] 91.5 fL Normal 80.0-94.0 [facility] Comment on above: Performed By: #### C BC ####[facility] Nocznfhbxi[address] [place], [place] [address]Dr. Garima Pulliam MONO # 0.0 103/ul Critically low 0.3-0.8 [facility] Comment on above: Performed By: #### C BC ####[facility] Yyzfblgtpg2920 [place] [address]Dr. Garima Pulliam Monocytes/100 WBC (Bld) 8.0 % Normal 1.7-12.0 [facility] Comment on above: Performed By: #### C BC ####[facility] Iybkezfyvz[address] [place], [place] [address]Dr. Garima Pulliam NEUT # 5.1 103/ul Normal 1.4-6.5 [facility] Comment on above: Performed By: #### C BC ####[facility] [address]qbufyzu55[address] [place], [place] [address]Io. Garima Pulliam Neutrophils/100 WBC (Bld) 62.8 % Normal 43.0-75.0 [facility] Comment on above: Performed By: #### C BC ####[facility] Ndorhcqzuy6139 [place], [place] [address]Ww. Garima Pulliam Platelet mean volume (Bld) [Entitic vol] 8.6 fL Critically low 9.5-13.5 [facility] Comment on above: Performed By: #### C BC ####[facility] Suyrutvftq264[address] [place] [id number]. Garima Pulliam PLT 200 103/ul Normal 150-450 [facility] Comment on above: Performed By: #### C BC ####[facility] Tocsoipihn32[address] [place] [phone]. Garima Pulliam RBC 4.69 106/ul Critically low 4.70-6.10 [facility] Comment on above: Performed By: #### C BC ####[facility] Nxvnxxjwss6205 [place], [place] [address]Nf. Garima Pulliam WBC 8.2 103/ul Normal 4.0-11.0 [facility] Comment on above: Performed By: #### C BC ####[facility] Ronznrmxpc8882 [place], [place] [address]Vf. Garima Pulliam [facility]on SARS-CoV-2 (COVID-19) RNA MARIE+probe Ql (Unsp spec) Not detected Normal NOT DETECTED [facility] Comment on above: Result Comment: When [...] for this test is supported by the [place] of [employer] and Human Service's declaration that [...] be used). Performed By: #### C VDTBH ####[facility] [address]ocbmhmihk[address] [place], [place] [address]Dr. Garima Pulliam INFLUENZA A AND B AGon 12-25 INFLUANEGH SEE BELOW Normal [facility] Comment on above: Result Comment: Nega tive for Flu A protein angiten. Infection due to Flu A cannot be ruled out. Flu A angiten in the sample may be below the detection limit of the test. Performed By: #### I NFLUAB ####[facility] [address]mkefabc[address] [place], [place] [address]Dr. Garima Pulliam INFLUBNEGH SEE BELOW Normal [facility] Comment on above: Result Comment: Nega tive for Flu B protein antigen. Infection due to Flu B cannot be ruled out. Flu B antigen in the sample may be below the detection limit of the test. Performed By: #### I NFLUAB ####[facility] [address] [place], [place] [address]Dr. Garima Pulliam INFLUENZA A AG Negative Normal NEGATIVE SEE COMMENT [facility] Comment on above: Performed By: #### I NFLUAB ####[facility] Teyqcrwuks[address] [place], [place] [address]Dr. renu [facility] INFLUENZA B AG Negative Normal NEGATIVE SEE COMMENT [facility] Comment on above: Performed By: #### I NFLUAB ####[facility] Yzxwqieysb[address] [place], [place] [address]Dr. Garima Pulliam PROF CHEM 8 (BAS METB)on Anion gap [Moles/Vol] 11.1 mmol/L Normal Th [facility] Comment on above: Performed By: #### B POSTAL CARRIER, BMP, CMADM ####[facility] Tuclwcyorf[address] [place], [place] [address]Dr. Garima Pulliam Calcium [Mass/Vol] 8.5 mg/dL Normal 8.5-10.1 [facility] Comment on above: Performed By: #### B POSTAL CARRIER, MARVIN, CMADM ####[facility] [address] [place] [id number]. Garima Pulliam Chloride [Moles/Vol] 106 mmol/L Normal 98-107 [facility] Comment on above: Performed By: #### B POSTAL CARRIER, BMP, CMADM ####[facility] [address] [place] [address]Dr. Garima Pulliam CO2 [Moles/Vol] 27.4 mmol/L Normal 21.0-32.0 [facility] Comment on above: Performed By: #### B POSTAL CARRIER, MARVIN, CMADM ####[facility] [address]we[address] [place] [address]Dr. Garima Pulliam Creatinine [Mass/Vol] 0.65 mg/dL Critically low 0.70-1.30 [facility] Comment on above: Performed By: #### B POSTAL CARRIER, MARVIN, CMADM ####[facility] [address]xt[address]rg[address] [place] [address]Dr. Garima Pulliam EGFR-AF SWEDISH >60 Normal >=60 [facility] Comment on above: Performed By: #### B POSTAL CARRIER, BMP, CMADM ####[facility] [address]fapewh[address] [place] [address]Dr. Garima Pulliam EGFR-NON AF SWEDISH >60 Normal >=60 [facility] Comment on above: Performed By: #### B POSTAL CARRIER, BMP, CMADM ####[facility] [address]remanc[address] [place] [address]Dr. Garima Pulliam Glucose [Mass/Vol] 140 mg/dL Critically high 74-106 [facility] Comment on above: Performed By: #### B POSTAL CARRIER, BMP, CMADM ####[facility] X[address]abaocgf[address] [place] [address]Dr. Garima Pulliam Potassium [Moles/Vol] 3.5 mmol/L Normal 3.5-5.1 [facility] Comment on above: Performed By: #### B POSTAL CARRIER, BMP, CMADM ####[facility] [address]terklkg[address] [place] [address]Dr. Garima Pulliam Sodium [Moles/Vol] 141 mmol/L Normal 136-[address] [facility] Comment on above: Performed By: #### B POSTAL CARRIER, BMP, CMADM ####[facility] [address]kuelp[address] [place] [address]Dr. Garima Pulliam Urea nitrogen [Mass/Vol] 8.0 mg/dL Normal 7.0-18.0 [facility] Comment on above: Performed By: #### B POSTAL CARRIER, BMP, CMADM ####[facility] N[address]vpqidznf[address] [place] [address]Dr. Garima Pulliam Urea nitrogen/Creatinine [Mass ratio] 12.3 mg/mg Normal [facility] Comment on above: Performed By: #### B POSTAL CARRIER, BMP, CMADM ####[facility] Uwjlcwydfu[address] [place], [place] [address]Dr. Garima Pulliam CARDIAC NASH ADMITon 023 CK [Catalytic activity/Vol] 165 U/L Normal 39-308 [facility] Comment on above: Performed By: #### B DAVID, CMADM ####[facility] Sftrrlbexc8[address] [place], [place] [address]Dr. Garima Pulliam CK.MB [Mass/Vol] 6.48 ng/mL Critically high <=3.60 [facility] Comment on above: Performed By: #### B MP, CMADM ####[facility] Xhitdlpfwy[address] [place], [place] [address]Dr. Garima Pulliam HSTROP 11.7 pg/mL Normal 4.0-76.1 [facility] Comment on above: Result Comment: CUT- OFF POINTS HAVE BEEN ESTABLISHED BASED ON THE FOURTH UNIVERSAL DEFINITIONS OF MYOCARDIALINFARCTION. THE UPPER REFERENCE LIMIT (URL) OF TROPONIN, DEFINED THE 99TH PERCENTILE OFcTnI DISTRIBUTION IN A REFERENCE POPULATION, HAS BEEN CONFIRMED THE DECISION THRESHOLDFOR [place] DIAGNOSIS. Performed By: #### B MP, CMADM ####[facility] Xcregisklb369[address] [place], [place] [address]Dr. Garima Pulliam DORIS 83 ng/mL Normal 16-96 [facility] Comment on above: Performed By: #### B MP, CMADM ####[facility] [address]qasmdkuk[address] [place] [address]Dr. Garima Pulliam CBC AUTO DIFFon 12-10-2022 BASO # 0.0 103/ul Normal 0.0-0.1 [facility] Comment on above: Performed By: #### C BC ####[facility] Xiqyzrjlue[address] [place], [place] [address]Dr. Garima Heraclio Basophils/100 WBC (Bld) 0.3 % Normal 0.2-2.0 [facility] Comment on above: Performed By: #### C BC ####[facility] Ztzegzfjyi[address] [place], [place] [address]Dr. Garima Pulliam EO # 0.1 103/ul Normal 0.0-0.7 [facility] Comment on above: Performed By: #### C BC ####[facility] Xlyplbscqk[address] [place], [place] [address]Dr. Garmia Pulliam Eosinophils/100 WBC (Bld) 0.4 % Critically low 0.9-7.0 [facility] Comment on above: Performed By: #### C BC ####[facility] Xogkpjpllz447[address] [place], [place] [address]Dr. Garima Pulliam Erythrocyte distribution width (RBC) [Ratio] 13.2 % Normal 11.0-15.0 [facility] Comment on above: Performed By: #### C BC ####[facility] Hurvqvduou[address] [place], [place] [address]Dr. Garima Pulliam Hematocrit (Bld) [Volume fraction] 42.4 % Normal 42.0-54.0 [facility] Comment on above: Performed By: #### C BC ####[facility] Viudhaznrj[address] [place], [place] [address]Dr. Garima Pulliam Hemoglobin (Bld) [Mass/Vol] 14.4 g/dL Normal 14.0-18.0 [facility] Comment on above: Performed By: #### C BC ####[facility] [address]vdsn[address] [place] [id number]. Garima Heraclio IG # 0.05 10e3/ul Critically high 0.00-0.03 [facility] Comment on above: Performed By: #### C BC ####[facility] [address]evwhmeo[address] [place] [address]Dr. Garima Heraclio IG % 0.4 % Normal 0.0-0.5 [facility] Comment on above: Performed By: #### C BC ####[facility] Hfmefqpfpv[address] [place], [place] [address]Dr. Garima Pulliam LYMPH # 0.8 103/ul Critically low 1.2-3.8 [facility] Comment on above: Performed By: #### C BC ####[facility] Gtjfrczvbz47[address] [place], [place] [address]Dr. Chapisrenu Pulliam Lymphocytes/100 WBC (Bld) 6.5 % Critically low 20.5-60.0 [facility] Comment on above: Performed By: #### C BC ####[facility] Bblkdzmbbq101[address] [place], [place] [address]Dr. Chapisrenu Pulliam MANUAL DIFF REQ NO Normal [facility] Comment on above: Performed By: #### C BC ####[facility] Rwwpjdqdfx[address] [place], [place] [address]DrAdalberto Garima Pulliam MCH (RBC) [Entitic mass] 30.5 pg Normal 25.9-34.0 [facility] Comment on above: Performed By: #### C BC ####[facility] [address]cbsj[address] [place], [place] [address]DrAdalberto Garima Heraclio MCHC (RBC) [Mass/Vol] 34.0 g/dL Normal 29.9-35.2 [facility] Comment on above: Performed By: #### C BC ####[facility] Bulfdnzqco[address] [place], [place] [address]DrAdalberto Garima Heraclio MCV (RBC) [Entitic vol] 89.8 fL Normal 80.0-94.0 [facility] Comment on above: Performed By: #### C BC ####[facility] Vkwuthhtbs[address] [place], [place] [address]Dr. Garima Pulliam MONO # 0.2 103/ul Critically low 0.3-0.8 [facility] Comment on above: Performed By: #### C BC ####[facility] [address]inhco[address] [place] [phone]. Garima Pulliam Monocytes/100 WBC (Bld) 2.0 % Normal 1.7-12.0 [facility] Comment on above: Performed By: #### C BC ####[facility] [address]fapqcdwc04[address] [place] [address]Dr. Chapisrenu Heraclio NEUT # 10.5 103/ul Critically high 1.4-6.5 [facility] Comment on above: Performed By: #### C BC ####[facility] W[address]jgxeg9[address] [place] [address]Dr. Garima Pulliam Neutrophils/100 WBC (Bld) 90.4 % Critically high 43.0-75.0 [facility] Comment on above: Performed By: #### C BC ####[facility] Cbmnqgulry24[address] [place] [address]Dr. Garima Pulliam Platelet mean volume (Bld) [Entitic vol] 9.4 fL Critically low 9.5-13.5 [facility] Comment on above: Performed By: #### C BC ####[facility] [address]hbhnzajk[address] [place] [address]Dr. Garima Pulliam PLT 198 103/ul Normal 150-450 [facility] Comment on above: Performed By: #### C BC ####[facility] W[address]zczcu[address] [place] [address]Dr. Garima Pulliam RBC 4.72 106/ul Normal 4.70-6.10 [facility] Comment on above: Performed By: #### C BC ####[facility] [address]seedzrvcj9[address] [place] [phone]. Garima Pulliam WBC 11.6 103/ul Critically high 4.0-11.0 [facility] Comment on above: Performed By: #### C BC ####[facility] [address]odcvcmxtg30[address] [place] [address]DrAdalberto Pulliam PROF CHEM 8 (BAS METB)on Anion gap [Moles/Vol] 11.3 mmol/L Normal Th [facility] Comment on above: Performed By: #### B NANCY HERNANDEZ ####[facility] [address]xpgobwbik[address] [place] [address]Dr. Garima Pulliam Calcium [Mass/Vol] 8.9 mg/dL Normal 8.5-10.[address] [facility] Comment on above: Performed By: #### B NANCY HERNANDEZ ####[facility] Ss[address]kegpax24[address] [place] [address]Dr. Garima Pulliam Chloride [Moles/Vol] 103 mmol/L Normal 98-107 [facility] Comment on above: Performed By: #### B NANCY HERNANDEZ ####[facility] Ymynlagyvv[address] [place], [place] [address]Dr. Garima Pulliam CO2 [Moles/Vol] 28.2 mmol/L Normal 21.0-32.0 [facility] Comment on above: Performed By: #### NANCY Larkin MP ####[facility] [address]pzfcoofzn[address] [place] [address]Dr. Chapisrenu Pulliam Creatinine [Mass/Vol] 0.60 mg/dL Critically low 0.70-1.30 [facility] Comment on above: Performed By: #### NANCY Larkin MP ####[facility] [address] [place] [address]Dr. Garima Pulliam EGFR-AF SWEDISH >60 Normal >=60 [facility] Comment on above: Performed By: #### NANCY Larkin MP ####[facility] Glkvaqjpmd4[address] [place] [address]Dr. Garima Pulliam EGFR-NON AF SWEDISH >60 Normal >=60 [facility] Comment on above: Performed By: #### NANCY Larkin MP ####[facility] Bnjzijbdqw[address] [place], [place] [address]Dr. Garima Pulliam Glucose [Mass/Vol] 166 mg/dL Critically high 74-106 [facility] Comment on above: Performed By: #### B MP, CMADM ####[facility] At[address]aajlfv[address] [place] [address]Dr. Garima Pulliam Potassium [Moles/Vol] 3.5 mmol/L Normal 3.5-5.1 [facility] Comment on above: Performed By: #### B MP, CMADM ####[facility] Iqgnqtzqyl[address] [place] [address]Dr. Garima Pulliam Sodium [Moles/Vol] 139 mmol/L Normal 136-145 [facility] Comment on above: Performed By: #### B DAVID, CMADM ####[facility] Txqmtfkevd5[address] [place] [address]Dr. Garima Heraclio Urea nitrogen [Mass/Vol] 9.0 mg/dL Normal 7.0-18.0 [facility] Comment on above: Performed By: #### B DAVID, NANCY ####[facility] Uaxocdrdix[address] [place], [place] [address]Dr. Garima Heraclio Urea nitrogen/Creatinine [Mass ratio] 15.0 mg/mg Normal [facility] Comment on above: Performed By: #### B DAVID, CMAANA ROSA ####[facility] Pkjxivbsjs[address] [place], [place] [address]Dr. Garima Pulliam XR CHEST 1 Von 12-10-2022 XR CHEST 1 V Normal [facility] BNPon 11-27-2022 Natriuretic peptide B (Bld) [Mass/Vol] 95.0 pg/mL Normal <=900.0 [facility] Comment on above: Performed By: #### C MP, HSTROPN, BNP ####[facility] T[address]qhdzmgmz[address] [place], [place] [address]Dr. Garima Heraclio CBC AUTO DIFFon 11-27-2022 BASO # 0.0 103/ul Normal 0.0-0.1 [facility] Comment on above: Performed By: #### C BC ####[facility] X[address]ujhjmp[address] [place], [place] [address]Dr. Garima Heraclio Basophils/100 WBC (Bld) 0.2 % Normal 0.2-2.0 [facility] Comment on above: Performed By: #### C BC ####[facility] [address]ms[address] [place] [id number]. Garima Pulliam EO # 0.2 103/ul Normal 0.0-0.7 [facility] Comment on above: Performed By: #### C BC ####[facility] Vtqytjzmmp24[address] [place] [phone]. Garima Pulliam Eosinophils/100 WBC (Bld) 2.0 % Normal 0.9-7.0 [facility] Comment on above: Performed By: #### C BC ####[facility] Qgdjswghjs94[address] [place], [place] [address]Dr. Garima Pulliam Erythrocyte distribution width (RBC) [Ratio] 13.2 % Normal 11.0-15.0 [facility] Comment on above: Performed By: #### C BC ####[facility] Klobllkqnn148[address] [place], [place] [address]Dr. Garima Pulliam Hematocrit (Bld) [Volume fraction] 42.4 % Normal 42.0-54.0 [facility] Comment on above: Performed By: #### C BC ####[facility] Zenzngxzep[address] [place], [place] [address]Dr. Garima Pulliam Hemoglobin (Bld) [Mass/Vol] 14.4 g/dL Normal 14.0-18.0 [facility] Comment on above: Performed By: #### C BC ####[facility] Dhggmgqudk[address] [place], [place] [address]Dr. Garima Pulliam IG # 0.04 10e3/ul Critically high 0.00-0.03 [facility] Comment on above: Performed By: #### C BC ####[facility] Iaauajojuq5[address] [place], [place] [address]Dr. Garima Pulliam IG % 0.4 % Normal 0.0-0.5 [facility] Comment on above: Performed By: #### C BC ####[facility] Wmgibbfvxv[address] [place], [place] [address]Dr. Garima Pulliam LYMPH # 2.2 103/ul Normal 1.2-3.8 [facility] Comment on above: Performed By: #### C BC ####[facility] [address]knhdvbp5[address] [place] [phone]. Garima Pulliam Lymphocytes/100 WBC (Bld) 21.5 % Normal 20.5-60.0 [facility] Comment on above: Performed By: #### C BC ####[facility] Zxcriuawxp57[address] [place] [phone]. Garima Heraclio MANUAL DIFF REQ NO Normal [facility] Comment on above: Performed By: #### C BC ####[facility] Wokkmcklqw3[address] [place] [phone]. Garima Heraclio MCH (RBC) [Entitic mass] 30.4 pg Normal 25.9-34.0 [facility] Comment on above: Performed By: #### C BC ####[facility] Tnglauitaf[address] [place] [address]Dr. Garima Heraclio MCHC (RBC) [Mass/Vol] 34.0 g/dL Normal 29.9-35.2 [facility] Comment on above: Performed By: #### C BC ####[facility] Qnahuhyyuq0804 [place] [phone]. Garima Pulliam MCV (RBC) [Entitic vol] 89.6 fL Normal 80.0-94.0 [facility] Comment on above: Performed By: #### C BC ####[facility] Agappspjel[address]6 [place] [address]Dr. Garima Pulliam MONO # 0.8 103/ul Normal 0.3-0.8 [facility] Comment on above: Performed By: #### C BC ####[facility] Zwkwuzfszl2447 [place] [address]Dr. Chapisrenu Pulliam Monocytes/100 WBC (Bld) 7.7 % Normal 1.7-12.0 [facility] Comment on above: Performed By: #### C BC ####[facility] Wsulyohndu[address] [place], [place] [address]Dr. Garima Pulliam NEUT # 7.0 103/ul Critically high 1.4-6.5 [facility] Comment on above: Performed By: #### C BC ####[facility] [address]hqeq[address] [place] [address]Dr. Garima Pulliam Neutrophils/100 WBC (Bld) 68.2 % Normal 43.0-75.0 [facility] Comment on above: Performed By: #### C BC ####[facility] [address] [place] [address]Dr. Chapisrenu Pulliam Platelet mean volume (Bld) [Entitic vol] 8.9 fL Critically low 9.5-13.5 [facility] Comment on above: Performed By: #### C BC ####[facility] Mghdmsjiyg64[address] [place] [address]Dr. Garima Pulliam PLT 222 103/ul Normal 150-450 [facility] Comment on above: Performed By: #### C BC ####[facility] Gemuiuxogj[address] [place] [address]Dr. Garima Pulliam RBC 4.73 106/ul Normal 4.70-6.10 [facility] Comment on above: Performed By: #### C BC ####[facility] Xvjurmqsqr18[address] [place] [address]Dr. Garima Pulliam WBC 10.3 103/ul Normal 4.0-11.0 [facility] Comment on above: Performed By: #### C BC ####[facility] D[address]afbyvj[address] [place] [address]Dr. Garima Pulliam PROF 14(COMP METB)on 023 Albumin [Mass/Vol] 3.7 g/dL Normal 3.4-5.[address] [facility] Comment on above: Performed By: #### C MP, HSTROPN, BNP ####[facility] Iifdctxlcd5[address] [place] [address]Dr. Chapisrenu Pulliam Albumin/Globulin [Mass ratio] 1.5 {ratio} Normal [facility] Comment on above: Performed By: #### C MP, HSTROPN, BNP ####[facility] Jqxzizfrzt9[address] [place] [address]Dr. Garima Pulliam ALP [Catalytic activity/Vol] 79 U/L Normal 46-116 [facility] Comment on above: Performed By: #### C MP, HSTROPN, BNP ####[facility] Zvmxskyedv2948 [place] [address]Dr. Garima Pulliam ALT [Catalytic activity/Vol] 32 U/L Normal 16-63 [facility] Comment on above: Performed By: #### C MP, HSTROPN, BNP ####[facility] Vabyctpwom[address] [place] [address]Dr. Garima Pulliam Anion gap [Moles/Vol] 9.5 mmol/L Normal [facility] Comment on above: Performed By: #### C MP, HSTROPN, BNP ####[facility] Ufogypgdqx[address] [place], [place] [address]Dr. Garima Pulliam AST [Catalytic activity/Vol] 25 U/L Normal 15-37 [facility] Comment on above: Performed By: #### C MP, HSTROPN, BNP ####[facility] Rxhyqbqffw192[address] [place], [place] [address]Dr. Chapislan Pulliam Bilirubin [Mass/Vol] 0.4 mg/dL Normal 0.2-1.0 [facility] Comment on above: Performed By: #### C MP, HSTROPN, BNP ####[facility] Sxylrrbnpx[address] [place], [place] [address]Dr. Garima Pulliam Calcium [Mass/Vol] 8.9 mg/dL Normal 8.5-10.[address] [facility] Comment on above: Performed By: #### C MP, HSTROPN, BNP ####[facility] Vsvxqrykym[address] [place], [place] [address]Dr. Chapislan Pulliam Chloride [Moles/Vol] 103 mmol/L Normal 98-107 [facility] Comment on above: Performed By: #### C MP, HSTROPN, BNP ####[facility] Prvqfgoned[address] [place], [place] [address]Dr. Yilan Pulliam CO2 [Moles/Vol] 28.6 mmol/L Normal 21.0-32.0 [facility] Comment on above: Performed By: #### C MP, HSTROPN, BNP ####[facility] Zhmsptghuf0[address] [place] [address]Dr. Garima Pulliam Creatinine [Mass/Vol] 0.72 mg/dL Normal 0.70-1.30 [facility] Comment on above: Performed By: #### C MP, HSTROPN, BNP ####[facility] Zjpefpfvfu[address] [place] [address]Dr. Garima Pulliam EGFR-AF SWEDISH >60 Normal >=60 [facility] Comment on above: Performed By: #### C MP, HSTROPN, BNP ####[facility] Tzkznktnsz[address] [place] [address]Dr. Garima Pulliam EGFR-NON AF SWEDISH >60 Normal >=60 [facility] Comment on above: Performed By: #### C MP, HSTROPN, BNP ####[facility] Lhfrpxcwff2232 [place] [address]Dr. Garima Pulliam Globulin (S) [Mass/Vol] 2.5 g/dL Normal [facility] Comment on above: Performed By: #### C MP, HSTROPN, BNP ####[facility] Tjungksyzh[address] [place], [place] [address]Dr. Garima Pulliam Glucose [Mass/Vol] 114 mg/dL Critically high 74-106 [facility] Comment on above: Performed By: #### C MP, HSTROPN, BNP ####[facility] Plwykgpksb[address] [place], [place] [address]Dr. Garima Pulliam Potassium [Moles/Vol] 4.1 mmol/L Normal 3.5-5.1 [facility] Comment on above: Performed By: #### C MP, HSTROPN, BNP ####[facility] Mgcammdotx[address] [place], [place] [address]Dr. Garima Pulliam Protein [Mass/Vol] 6.2 g/dL Critically low 6.4-8.2 [facility] Comment on above: Performed By: #### C MP, HSTROPN, BNP ####[facility] [address]uypmiik[address] [place], [place] [address]Dr. Yilan Pulliam Sodium [Moles/Vol] 137 mmol/L Normal 136-145 [facility] Comment on above: Performed By: #### C MP, HSTROPN, BNP ####[facility] Vuhtpfywxn37[address] [place] [address]Dr. Garima Pulliam Urea nitrogen [Mass/Vol] 13.0 mg/dL Normal 7.0-18.0 [facility] Comment on above: Performed By: #### C MP, HSTROPN, BNP ####[facility] Ghjmnpjnqb7[address] [place] [address]Dr. Garima Pulliam Urea nitrogen/Creatinine [Mass ratio] 18.1 mg/mg Normal [facility] Comment on above: Performed By: #### C MP, HSTROPN, BNP ####[facility] Kylvujpjzz[address] [place], [place] [address]Dr. Garima Pulliam TROPONIN, HIGH SENSITIVITYon 11-27-2022 HSTROP 11.8 pg/mL Normal 4.0-76.1 [facility] Comment on above: Result Comment: CUT- OFF POINTS HAVE BEEN ESTABLISHED BASED ON THE FOURTH UNIVERSAL DEFINITIONS OF MYOCARDIALINFARCTION. THE UPPER REFERENCE LIMIT (URL) OF TROPONIN, DEFINED THE 99TH PERCENTILE OFcTnI DISTRIBUTION IN A REFERENCE POPULATION, HAS BEEN CONFIRMED THE DECISION THRESHOLDFOR [place] DIAGNOSIS. Performed By: #### C MP, HSTROPN, BNP ####[facility] T[address]yfx[address]he[address] [place], [place] [address]Dr. Garima Pulliam XR CHEST 1 Von 11-27-2022 XR CHEST 1 V Normal [facility] BNPon 11-20-2022 Natriuretic peptide B (Bld) [Mass/Vol] 73.0 pg/mL Normal <=900.0 [facility] Comment on above: Performed By: #### B MP, HSTROPN, BNP ####[facility] C[address]klzxbwh[address] [place], [place] [address]Dr. Garima Pulliam CBC AUTO DIFFon 11-20-2022 BASO # 0.0 103/ul Normal 0.0-0.1 [facility] Comment on above: Performed By: #### C BC ####[facility] [address]aqxsiz[address] [place] [id number]. Garima Pulliam Basophils/100 WBC (Bld) 0.3 % Normal 0.2-2.0 [facility] Comment on above: Performed By: #### C BC ####[facility] Klcyoequvr3485 [place] [phone]. Garima Pulliam EO # 0.2 103/ul Normal 0.0-0.7 [facility] Comment on above: Performed By: #### C BC ####[facility] Wuhmfridft65[address] [place] [address]Dr. Garima Pulliam Eosinophils/100 WBC (Bld) 2.1 % Normal 0.9-7.0 [facility] Comment on above: Performed By: #### C BC ####[facility] Itwvatodcv7[address] [place], [place] [address]Dr. Garima Pulliam Erythrocyte distribution width (RBC) [Ratio] 13.2 % Normal 11.0-15.0 [facility] Comment on above: Performed By: #### C BC ####[facility] Ridntfojwi[address] [place], [place] [address]Dr. Garima Pulliam Hematocrit (Bld) [Volume fraction] 43.4 % Normal 42.0-54.0 [facility] Comment on above: Performed By: #### C BC ####[facility] Mpaebmhudu[address] [place], [place] [id number]. Garima Pulliam Hemoglobin (Bld) [Mass/Vol] 14.6 g/dL Normal 14.0-18.0 [facility] Comment on above: Performed By: #### C BC ####[facility] [address] [place] [id number]. Garima Pulliam IG # 0.02 10e3/ul Normal 0.00-0.03 [facility] Comment on above: Performed By: #### C BC ####[facility] [address] [place] [address]Dr. Garima Pulliam IG % 0.2 % Normal 0.0-0.5 [facility] Comment on above: Performed By: #### C BC ####[facility] [address]rew[address]ou[address] [place] [phone]. Garima Heraclio LYMPH # 2.1 103/ul Normal 1.2-3.8 [facility] Comment on above: Performed By: #### C BC ####[facility] Cxcyepkudv29[address] [place] [address]Dr. Garima Heraclio Lymphocytes/100 WBC (Bld) 19.2 % Critically low 20.5-60.0 [facility] Comment on above: Performed By: #### C BC ####[facility] [address]mz[address]udcv[address] [place] [phone]. Chapisrenu Pulliam MANUAL DIFF REQ NO Normal [facility] Comment on above: Performed By: #### C BC ####[facility] Sghngwdpng30[address] [place] [phone]. Garima Heraclio MCH (RBC) [Entitic mass] 30.4 pg Normal 25.9-34.0 [facility] Comment on above: Performed By: #### C BC ####[facility] Zmyyuacnme[address] [place] [address]Dr. Garima Pulliam MCHC (RBC) [Mass/Vol] 33.6 g/dL Normal 29.9-35.2 [facility] Comment on above: Performed By: #### C BC ####[facility] Wgljzomroh[address] [place] [phone]. Garima Heraclio MCV (RBC) [Entitic vol] 90.4 fL Normal 80.0-94.0 [facility] Comment on above: Performed By: #### C BC ####[facility] [address]kewv[address] [place] [phone]. Garima Heraclio MONO # 0.6 103/ul Normal 0.3-0.8 [facility] Comment on above: Performed By: #### C BC ####[facility] Lkwocztjtj[address] [place] [address]Dr. Garima Heraclio Monocytes/100 WBC (Bld) 5.8 % Normal 1.7-12.0 [facility] Comment on above: Performed By: #### C BC ####[facility] [address]ogi[address] [place], [place] [address]Ly. Garima Pulliam NEUT # 7.8 103/ul Critically high 1.4-6.5 [facility] Comment on above: Performed By: #### C BC ####[facility] W[address]prge[address] [place] [phone]. Garima Pulliam Neutrophils/100 WBC (Bld) 72.4 % Normal 43.0-75.0 [facility] Comment on above: Performed By: #### C BC ####[facility] Kdgsfxnvbh[address] [place] [phone]. Garima Pulliam Platelet mean volume (Bld) [Entitic vol] 8.7 fL Critically low 9.5-13.5 [facility] Comment on above: Performed By: #### C BC ####[facility] Xwdatbvjcj28[address] [place] [phone]. Garima Pulliam PLT 184 103/ul Normal 150-450 [facility] Comment on above: Performed By: #### C BC ####[facility] Bgkaviprsq[address] [place], [place] [address]Wq. Garima Pulliam RBC 4.80 106/ul Normal 4.70-6.10 [facility] Comment on above: Performed By: #### C BC ####[facility] Bmwbjghykn8[address] [place] [phone]. Garima Pulliam WBC 10.8 103/ul Normal 4.0-11.0 [facility] Comment on above: Performed By: #### C BC ####[facility] Amteiothuc[address] [place] [phone]. Garima Pulliam [facility] SARS-CoV-2 (COVID-19) RNA MARIE+probe Ql (Unsp spec) Not detected Normal NOT DETECTED [facility] Comment on above: Result Comment: When [...] for this test is supported by the [employer] of Health and Human Service's declaration that [...] be used). Performed By: #### C VDTBH ####[facility] Qypvvwloja[address] [place], [place] [address]Dr. Garima Pulliam INFLUENZA A AND B AGon 11-20 INFLUBANNER SEE BELOW Normal [facility] Comment on above: Result Comment: Nega tive for Flu A protein angiten. Infection due to Flu A cannot be ruled out. Flu A angiten in the sample may be below the detection limit of the test. Performed By: #### I NFLUAB ####[facility] Jugrwzrcri[address] [place], [place] [address]Dr. Garima Pulliam INFLUBNEGH SEE BELOW Normal [facility] Comment on above: Result Comment: Nega tive for Flu B protein antigen. Infection due to Flu B cannot be ruled out. Flu B antigen in the sample may be below the detection limit of the test. Performed By: #### I NFLUAB ####[facility] W[address]lygblnv[address] [place], [place] [address]Dr. Garima Pulliam INFLUENZA A AG Negative Normal NEGATIVE SEE COMMENT [facility] Comment on above: Performed By: #### I NFLUAB ####[facility] Snkyzyipno[address] [place], [place] [address]Dr. Garima [facility] INFLUENZA B AG Negative Normal NEGATIVE SEE COMMENT [facility] Comment on above: Performed By: #### I NFLUAB ####[facility] Esfxhnvbzy[address] [place], [place] [address]Dr. Garima Pulliam PROF CHEM 8 (BAS METB)on Anion gap [Moles/Vol] 8.2 mmol/L Normal [facility] Comment on above: Performed By: #### B MP, HSTROPN, BNP ####[facility] Axlymfbomt[address] [place] [address]Dr. Garima Pulliam Calcium [Mass/Vol] 8.7 mg/dL Normal 8.5-10.[address] [facility] Comment on above: Performed By: #### B MP, HSTROPN, BNP ####[facility] Pbmhvchfme[address] [place] [address]Dr. Garima Pulliam Chloride [Moles/Vol] 103 mmol/L Normal 98-107 [facility] Comment on above: Performed By: #### B MP, HSTROPN, BNP ####[facility] Aehdphaxsa[address] [place], [place] [address]Dr. Garima Pulliam CO2 [Moles/Vol] 29.4 mmol/L Normal 21.0-32.0 [facility] Comment on above: Performed By: #### B MP, HSTROPN, BNP ####[facility] Sbwsniouln[address] [place], [place] [address]Dr. Garima Pulliam Creatinine [Mass/Vol] 0.69 mg/dL Critically low 0.70-1.30 [facility] Comment on above: Performed By: #### B MP, HSTROPN, BNP ####[facility] Qu[address]sd[address]xmt[address] [place] [address]Dr. Garima Pulliam EGFR-AF SWEDISH >60 Normal >=60 [facility] Comment on above: Performed By: #### B MP, HSTROPN, BNP ####[facility] Gcmoogclhu[address] [place], [place] [address]Dr. Garima Pulliam EGFR-NON AF SWEDISH >60 Normal >=60 [facility] Comment on above: Performed By: #### B MP, HSTROPN, BNP ####[facility] Lmhvlawysk[address] [place] [address]Dr. Garima Pulliam Glucose [Mass/Vol] 209 mg/dL Critically high 74-106 [facility] Comment on above: Performed By: #### B MP, HSTROPN, BNP ####[facility] Qyrissfghv8369 [place] [address]Dr. Garima Pulliam Potassium [Moles/Vol] 3.6 mmol/L Normal 3.5-5.1 [facility] Comment on above: Performed By: #### B MP, HSTROPN, BNP ####[facility] Gxqmqmtqii6[address] [place] [address]Dr. Garima Pulliam Sodium [Moles/Vol] 137 mmol/L Normal 136-145 [facility] Comment on above: Performed By: #### B MP, HSTROPN, BNP ####[facility] Xvophvhuru[address] [place] [address]Dr. Garima Pulliam Urea nitrogen [Mass/Vol] 11.0 mg/dL Normal 7.0-18.0 [facility] Comment on above: Performed By: #### B MP, HSTROPN, BNP ####[facility] Wojqmaceka[address] [place] [address]Dr. Garima Pulliam Urea nitrogen/Creatinine [Mass ratio] 15.9 mg/mg Normal [facility] Comment on above: Performed By: #### B MP, HSTROPN, BNP ####[facility] Rvsesqnnyk[address] [place] [address]Dr. Garima Pulliam TROPONIN, HIGH SENSITIVITYon 11-20-2022 HSTROP 8.7 pg/mL Normal 4.0-76.1 [facility] Comment on above: Result Comment: CUT- OFF POINTS HAVE BEEN ESTABLISHED BASED ON THE FOURTH UNIVERSAL DEFINITIONS OF MYOCARDIALINFARCTION. THE UPPER REFERENCE LIMIT (URL) OF TROPONIN, DEFINED THE 99TH PERCENTILE OFcTnI DISTRIBUTION IN A REFERENCE POPULATION, HAS BEEN CONFIRMED THE DECISION THRESHOLDFOR [place] DIAGNOSIS. Performed By: #### B MP, HSTROPN, BNP ####[facility] Qcqnlgviqk[address] [place] [address]Dr. Garima Pulliam XR CHEST 1 Von 11-20-2022 XR CHEST 1 V Normal [facility] XR CHEST 1 Von 10-02-2022 XR CHEST 1 V Normal [facility] BNPon 09-29-2022 Natriuretic peptide B (Bld) [Mass/Vol] 107.0 pg/mL Normal <=900.0 [facility] Comment on above: Performed By: #### C MP, BNP, CMADM ####[facility] [address]whsmsyvo[address] [place] [address]Dr. Garima Pulliam CARDIAC NASH ADMITon 022 CK [Catalytic activity/Vol] 190 U/L Normal 39-308 [facility] Comment on above: Performed By: #### C MP, BNP, CMADM ####[facility] H[address]auwkss[address] [place] [address]Dr. Garima Heraclio CK.MB [Mass/Vol] 11.11 ng/mL Critically high <=3.60 [facility] Comment on above: Performed By: #### C MP, BNP, CMADM ####[facility] [address]ptnndwop[address] [place] [address]Dr. Garima Pulliam HSTROP 11.8 pg/mL Normal 4.0-76.1 [facility] Comment on above: Result Comment: CUT- OFF POINTS HAVE BEEN ESTABLISHED BASED ON THE FOURTH UNIVERSAL DEFINITIONS OF MYOCARDIALINFARCTION. THE UPPER REFERENCE LIMIT (URL) OF TROPONIN, DEFINED THE 99TH PERCENTILE OFcTnI DISTRIBUTION IN A REFERENCE POPULATION, HAS BEEN CONFIRMED THE DECISION THRESHOLDFOR [place] DIAGNOSIS. Performed By: #### C MP, BNP, CMADM ####[facility] Bxepdgxujt64[address] [place] [address]Dr. Garima Pulliam DORIS 133 ng/mL Critically high 16-96 [facility] Comment on above: Performed By: #### C MP, BNP, CMADM ####[facility] Vcsnwwjizw36[address] [place] [address]Dr. Garima Heraclio CBC AUTO DIFFon 09-29-2022 BASO # 0.0 103/ul Normal 0.0-0.1 [facility] Comment on above: Performed By: #### C BC ####[facility] Zhgnvhxuei[address] [place] [address]Dr. Garima Heraclio Basophils/100 WBC (Bld) 0.2 % Normal 0.2-2.0 [facility] Comment on above: Performed By: #### C BC ####[facility] Cgxovfjjqm8228 [place] [phone]. Garima Pulliam EO # 0.1 103/ul Normal 0.0-0.7 [facility] Comment on above: Performed By: #### C BC ####[facility] Lzrdscsuuo6806 [place] [phone]. Garima Pulliam Eosinophils/100 WBC (Bld) 1.4 % Normal 0.9-7.0 [facility] Comment on above: Performed By: #### C BC ####[facility] [address]muiubdx[address] [place], [place] [address]Dr. Garima Pulliam Erythrocyte distribution width (RBC) [Ratio] 13.7 % Normal 11.0-15.0 [facility] Comment on above: Performed By: #### C BC ####[facility] Arvrsunypb[address] [place], [place] [address]Dr. Garima Pulliam Hematocrit (Bld) [Volume fraction] 45.4 % Normal 42.0-54.0 [facility] Comment on above: Performed By: #### C BC ####[facility] [address]pbesqrgzw[address] [place], [place] [address]Dr. Garima Pulliam Hemoglobin (Bld) [Mass/Vol] 14.8 g/dL Normal 14.0-18.0 [facility] Comment on above: Performed By: #### C BC ####[facility] X[address]obaajleh[address] [place], [place] [address]Dr. Garima Pulliam IG # 0.04 10e3/ul Critically high 0.00-0.03 [facility] Comment on above: Performed By: #### C BC ####[facility] Ljzffveuou[address] [place], [place] [address]Dr. Garima Pulliam IG % 0.5 % Normal 0.0-0.5 [facility] Comment on above: Performed By: #### C BC ####[facility] Idzlofkssg[address] [place], [place] [address]Dr. Garima Pulliam LYMPH # 1.1 103/ul Critically low 1.2-3.8 [facility] Comment on above: Performed By: #### C BC ####[facility] Ddgncykyvs1438 [place] [phone]. Garima Pulliam Lymphocytes/100 WBC (Bld) 12.7 % Critically low 20.5-60.0 [facility] Comment on above: Performed By: #### C BC ####[facility] Wdolwudglk8502 [place] [address]Dr. Chapisrenu Pulliam MANUAL DIFF REQ NO Normal [facility] Comment on above: Performed By: #### C BC ####[facility] Flbelhtwrj[address] [place], [place] [address]Dr. Garima Heraclio MCH (RBC) [Entitic mass] 30.0 pg Normal 25.9-34.0 [facility] Comment on above: Performed By: #### C BC ####[facility] Ujhvyezakr[address] [place], [place] [address]Dr. Garima Heraclio MCHC (RBC) [Mass/Vol] 32.6 g/dL Normal 29.9-35.2 [facility] Comment on above: Performed By: #### C BC ####[facility] Plewckwcgt[address] [place], [place] [address]Dr. Garima Heraclio MCV (RBC) [Entitic vol] 91.9 fL Normal 80.0-94.0 [facility] Comment on above: Performed By: #### C BC ####[facility] Uziicxnbwe[address] [place], [place] [address]Dr. Garima Pulliam MONO # 0.4 103/ul Normal 0.3-0.8 [facility] Comment on above: Performed By: #### C BC ####[facility] Nbtpgqdcjz[address] [place], [place] [address]Dr. Chapisrenu Pulliam Monocytes/100 WBC (Bld) 4.8 % Normal 1.7-12.0 [facility] Comment on above: Performed By: #### C BC ####[facility] Luwzkumkge[address] [place], [place] [address]Dr. Garima Pulliam NEUT # 7.1 103/ul Critically high 1.4-6.5 [facility] Comment on above: Performed By: #### C BC ####[facility] Lqzqufbauv7887 [place], [place] [address]Ia. Garima Pulliam Neutrophils/100 WBC (Bld) 80.4 % Critically high 43.0-75.0 [facility] Comment on above: Performed By: #### C BC ####[facility] Z[address]bijhfi1735 [place] [phone]. Garima Pulliam Platelet mean volume (Bld) [Entitic vol] 9.1 fL Critically low 9.5-13.5 [facility] Comment on above: Performed By: #### C BC ####[facility] Yjjqsiyaze64[address] [place] [address]Dr. Garima Pulliam PLT 200 103/ul Normal 150-450 [facility] Comment on above: Performed By: #### C BC ####[facility] Jopcpyncgz3684 [place] [address]Dr. Garima Pulliam RBC 4.94 106/ul Normal 4.70-6.10 [facility] Comment on above: Performed By: #### C BC ####[facility] Ztncpqpvdd8655 [place] [address]Dr. Garima Pulliam WBC 8.9 103/ul Normal 4.0-11.0 [facility] Comment on above: Performed By: #### C BC ####[facility] Bfjwlvolvt1090 [place] [phone]. Garima Pulliam Covid-19 PCR (CVDTB)on SARS-CoV-2 (COVID-19) RNA MARIE+probe Ql (Unsp spec) Not detected Normal NOT DETECTED [facility] Comment on above: Result Comment: When [...] for this test is supported by the [employer] of Health and Human Service's declaration that [...] be used). Performed By: #### C VDTBH ####[facility] Ydryicsbwr[address] [place] [address]Dr. Garima Pulliam LACTATE/LACTIC ACIDon 2021 Lactate [Moles/Vol] 1.7 mmol/L Normal 0.4-1.9 [facility] Comment on above: Performed By: #### L ACT ####[facility] Kndprmqoce[address] [place], [place] [address]Dr. Garima Pulliam PROF 14(COMP METB)on 022 Albumin [Mass/Vol] 3.8 g/dL Normal 3.4-5.[address] [facility] Comment on above: Performed By: #### C MP, BNP, CMADM ####[facility] Akwaeotuxr[address] [place], [place] [address]Dr. Garima Pulliam Albumin/Globulin [Mass ratio] 1.5 {ratio} Normal [facility] Comment on above: Performed By: #### C MP, BNP, CMADM ####[facility] Izonxvkjjr[address] [place] [address]Dr. Garima Pulliam ALP [Catalytic activity/Vol] 62 U/L Normal 46-116 [facility] Comment on above: Performed By: #### C MP, BNP, CMADM ####[facility] [address]uksklcfy[address] [place] [address]Dr. Garima Pulliam ALT [Catalytic activity/Vol] 37 U/L Normal 16-63 [facility] Comment on above: Performed By: #### C MP, BNP, CMADM ####[facility] Xdxwobruck6[address] [place] [address]Dr. Garima Pulliam Anion gap [Moles/Vol] 8.0 mmol/L Normal [facility] Comment on above: Performed By: #### C MP, BNP, CMADM ####[facility] Dfjlttntgt6491 [place] [address]Dr. Garima Pulliam AST [Catalytic activity/Vol] 20 U/L Normal 15-37 [facility] Comment on above: Performed By: #### C MP, BNP, CMADM ####[facility] Bxsprvsler6162 [place] [address]Dr. Garima Pulliam Bilirubin [Mass/Vol] 0.6 mg/dL Normal 0.2-1.0 [facility] Comment on above: Performed By: #### C MP, BNP, CMADM ####[facility] Jqbgmoprgl[address] [place] [address]Dr. Garima Pulliam Calcium [Mass/Vol] 9.1 mg/dL Normal 8.5-10.[address] [facility] Comment on above: Performed By: #### C MP, BNP, CMADM ####[facility] C[address]qnqbtyk[address] [place], [place] [address]Dr. Garima Pulliam Chloride [Moles/Vol] 103 mmol/L Normal 98-107 [facility] Comment on above: Performed By: #### C MP, BNP, CMADM ####[facility] Dkxzysbykh[address] [place], [place] [address]Dr. Garima Pulliam CO2 [Moles/Vol] 31.8 mmol/L Normal 21.0-32.0 [facility] Comment on above: Performed By: #### C MP, BNP, CMADM ####[facility] V[address]edggwfl[address] [place], [place] [address]Dr. Garima Pulliam Creatinine [Mass/Vol] 0.63 mg/dL Critically low 0.70-1.30 [facility] Comment on above: Performed By: #### C MP, BNP, CMADM ####[facility] Ikylferzms[address] [place], [place] [address]Dr. Garima Pulliam EGFR-AF SWEDISH >60 Normal >=60 [facility] Comment on above: Performed By: #### C MP, BNP, CMADM ####[facility] Vfncxkvzco[address] [place], [place] [address]Dr. Garima Pulliam EGFR-NON AF SWEDISH >60 Normal >=60 [facility] Comment on above: Performed By: #### C MP, BNP, CMADM ####[facility] Djmfpgmtiv7214 [place] [address]Dr. Garima Pulliam Globulin (S) [Mass/Vol] 2.6 g/dL Normal [facility] Comment on above: Performed By: #### C MP, BNP, CMADM ####[facility] Ntewkuvdes1898 [place] [address]Dr. Garima Pulliam Glucose [Mass/Vol] 103 mg/dL Normal 74-106 [facility] Comment on above: Performed By: #### C MP, BNP, CMADM ####[facility] Orzmlpkgcj2516 [place] [address]Dr. Garima Pulliam Potassium [Moles/Vol] 3.8 mmol/L Normal 3.5-5.1 [facility] Comment on above: Performed By: #### C MP, BNP, CMADM ####[facility] Axxwebeuvm8699 [place] [address]Dr. Garima Pulliam Protein [Mass/Vol] 6.4 g/dL Normal 6.4-8.2 [facility] Comment on above: Performed By: #### C MP, BNP, CMADM ####[facility] Rieoyzmnup[address] [place] [address]Dr. Garima Pulliam Sodium [Moles/Vol] 139 mmol/L Normal 136-145 [facility] Comment on above: Performed By: #### C MP, BNP, CMADM ####[facility] Ebvrrfvckh5[address] [place] [address]Dr. Garima Pulliam Urea nitrogen [Mass/Vol] 7.0 mg/dL Normal 7.0-18.0 [facility] Comment on above: Performed By: #### C MP, BNP, CMADM ####[facility] Nqwazhsgdc0748 [place] [address]Dr. Garima Pulliam Urea nitrogen/Creatinine [Mass ratio] 11.1 mg/mg Normal [facility] Comment on above: Performed By: #### C MP, BNP, CMADM ####[facility] Bsbmcoibel1658 [place] [address]Dr. Garima Pulliam PROTIMEon 09-29-2022 INR Coag (PPP) [Relative time] 1.14 {INR} Normal [facility] Comment on above: Performed By: #### P T, PTT ####[facility] Thucajdbzu[address] [place], [place] [address]Dr. Garima Pulliam INR GUIDELINES SEE BELOW Normal [facility] Comment on above: Result Comment: WESLEY RED INR: 2.0 - 3.0 CONDITIONS NOT LISTED BELOW 2.5 - 3.5 FOR PROSTHETIC HEART VALVE REPLACEMENT 2.5 - 3.5 RECURRENT THROMBOSIS Performed By: #### P T, PTT ####[facility] [address]qussfzw[address] [place], [place] [address]Dr. Garima Pulliam PT Coag (PPP) [Time] 12.2 s Critically high 9.0-11.6 [facility] Comment on above: Performed By: #### P T, PTT ####[facility] [address]zpthopw[address] [place], [place] [address]Dr. Garima Pulliam PTTon 09-29-2022 aPTT Coag (Bld) [Time] 29.3 s Normal 22.3-36.2 [facility] Comment on above: Performed By: #### P T, PTT ####[facility] L[address]wbwdjev[address] [place], [place] [address]Dr. Garima Pulliam XR CHEST 1 Von 09-29-2022 XR CHEST 1 V Normal [facility] CBC AUTO DIFFon 09-26-2022 BASO # 0.0 103/ul Normal 0.0-0.1 [facility] Comment on above: Performed By: #### C BC ####[facility] Egtrspixdx[address] [place], [place] [address]Dr. Garima Pulliam Basophils/100 WBC (Bld) 0.2 % Normal 0.2-2.0 [facility] Comment on above: Performed By: #### C BC ####[facility] Njdedcthon[address] [place], [place] [address]Dr. Garima Pulliam EO # 0.1 103/ul Normal 0.0-0.7 [facility] Comment on above: Performed By: #### C BC ####[facility] Vligrwoctn[address] [place], [place] [address]Dr. Garima Pulliam Eosinophils/100 WBC (Bld) 1.0 % Normal 0.9-7.0 [facility] Comment on above: Performed By: #### C BC ####[facility] [address]zfrbgibg[address] [place], [place] [address]Dr. Garima Pulliam Erythrocyte distribution width (RBC) [Ratio] 13.4 % Normal 11.0-15.0 [facility] Comment on above: Performed By: #### C BC ####[facility] Uiewivfhpq[address] [place], [place] [address]Dr. Garima Pulliam Hematocrit (Bld) [Volume fraction] 46.3 % Normal 42.0-54.0 [facility] Comment on above: Performed By: #### C BC ####[facility] Xfwcenrxpb[address] [place], [place] [address]Dr. Garima Pulliam Hemoglobin (Bld) [Mass/Vol] 15.3 g/dL Normal 14.0-18.0 [facility] Comment on above: Performed By: #### C BC ####[facility] Tfsscthmal[address] [place], [place] [address]Dr. Garima Pulliam IG # 0.05 10e3/ul Critically high 0.00-0.03 [facility] Comment on above: Performed By: #### C BC ####[facility] Gfigtiyfcc[address] [place], [place] [address]Dr. Garima Pulliam IG % 0.4 % Normal 0.0-0.5 [facility] Comment on above: Performed By: #### C BC ####[facility] [address]kxzoxu[address] [place], [place] [address]Dr. Garima Pulliam LYMPH # 1.7 103/ul Normal 1.2-3.8 [facility] Comment on above: Performed By: #### C BC ####[facility] Iddchlzzyo[address] [place], [place] [address]Dr. Garima Pulliam Lymphocytes/100 WBC (Bld) 12.7 % Critically low 20.5-60.0 [facility] Comment on above: Performed By: #### C BC ####[facility] V[address]zkoxwqj[address] [place] [address]DrAdalberto Pulliam MANUAL DIFF REQ NO Normal [facility] Comment on above: Performed By: #### C BC ####[facility] F[address]fyehsek[address] [place] [address]Dr. Garima Pulliam MCH (RBC) [Entitic mass] 30.1 pg Normal 25.9-34.0 [facility] Comment on above: Performed By: #### C BC ####[facility] Tnleitaxzu[address] [place], [place] [address]Dr. Garima Pulliam MCHC (RBC) [Mass/Vol] 33.0 g/dL Normal 29.9-35.2 [facility] Comment on above: Performed By: #### C BC ####[facility] Ejzwrpzztr[address] [place], [place] [address]DrAdalberto Pulliam MCV (RBC) [Entitic vol] 91.1 fL Normal 80.0-94.0 [facility] Comment on above: Performed By: #### C BC ####[facility] Caeokpiqap[address] [place], [place] [address]DrAdalberto Pulliam MONO # 0.9 103/ul Critically high 0.3-0.8 [facility] Comment on above: Performed By: #### C BC ####[facility] Bnifebzapx483[address] [place], [place] [address]DrAdalberto Pulliam Monocytes/100 WBC (Bld) 7.0 % Normal 1.7-12.0 [facility] Comment on above: Performed By: #### C BC ####[facility] Qrqjxoesiy60[address] [place], [place] [address]DrAdalberto Pulliam NEUT # 10.4 103/ul Critically high 1.4-6.5 [facility] Comment on above: Performed By: #### C BC ####[facility] Zecopxteng[address] [place], [place] [address]DrAdalberto Pulliam Neutrophils/100 WBC (Bld) 78.7 % Critically high 43.0-75.0 [facility] Comment on above: Performed By: #### C BC ####[facility] [address]ttdomfmic[address] [place] [address]Dr. Garima Pulliam Platelet mean volume (Bld) [Entitic vol] 8.9 fL Critically low 9.5-13.5 [facility] Comment on above: Performed By: #### C BC ####[facility] Jdsobhirvg[address] [place] [address]Dr. Garima Pulliam PLT 195 103/ul Normal 150-450 [facility] Comment on above: Performed By: #### C BC ####[facility] Fsdynnzpag[address] [place], [place] [address]Dr. Garima Pulliam RBC 5.08 106/ul Normal 4.70-6.10 [facility] Comment on above: Performed By: #### C BC ####[facility] Fazlvjmyae9[address] [place], [place] [address]Dr. Garima Pulliam WBC 13.2 103/ul Critically high 4.0-11.0 [facility] Comment on above: Performed By: #### C BC ####[facility] Ohgmoogyei389[address] [place], [place] [address]Dr. Garima Pulliam PROF 14(COMP METB)on 022 Albumin [Mass/Vol] 3.5 g/dL Normal 3.4-5.[address] [facility] Comment on above: Performed By: #### C DAVID HSTROPN ####[facility] Prxixhotsj[address] [place] [address]Dr. Garima Pulliam Albumin/Globulin [Mass ratio] 1.2 {ratio} Normal [facility] Comment on above: Performed By: #### C RAFAT HERNANDEZTROPN ####[facility] Pylciufnzw[address] [place] [address]Dr. Garima Pulliam ALP [Catalytic activity/Vol] 71 U/L Normal 46-116 [facility] Comment on above: Performed By: #### C DAVID HSTROPN ####[facility] Pmdleihamc[address] [place] [address]Dr. Garima Pulliam ALT [Catalytic activity/Vol] 37 U/L Normal 16-63 [facility] Comment on above: Performed By: #### C DAVID, HSTROPN ####[facility] Mdkyixezqp6[address] [place] [address]Dr. Garima Pulliam Anion gap [Moles/Vol] 4.8 mmol/L Normal [facility] Comment on above: Performed By: #### C DAVID, HSTROPN ####[facility] Tbyzhdqwaj[address] [place], [place] [address]Dr. Garima Pulliam AST [Catalytic activity/Vol] 21 U/L Normal 15-37 [facility] Comment on above: Performed By: #### C DAVID, HSTROPN ####[facility] Thhrcyqzyj229[address] [place], [place] [address]Dr. Garima Pulliam Bilirubin [Mass/Vol] 0.3 mg/dL Normal 0.2-1.0 [facility] Comment on above: Performed By: #### C DAVID, HSTROPN ####[facility] Gklqqlukhm[address] [place] [address]Dr. Garima Pulliam Calcium [Mass/Vol] 8.9 mg/dL Normal 8.5-10.[address] [facility] Comment on above: Performed By: #### C DAVID, HSTROPN ####[facility] [address]wlz[address]scrz[address] [place] [address]Dr. Garima Pulliam Chloride [Moles/Vol] 106 mmol/L Normal 98-107 [facility] Comment on above: Performed By: #### C DAVID, HSTROPN ####[facility] Ysoogbqpbd57[address] [place] [address]Dr. Garima Pulliam CO2 [Moles/Vol] 29.8 mmol/L Normal 21.0-32.0 [facility] Comment on above: Performed By: #### C DAVID, HSTROPN ####[facility] Fjwxfpkkbr66[address] [place] [address]Dr. Garima Pulliam Creatinine [Mass/Vol] 0.68 mg/dL Critically low 0.70-1.30 [facility] Comment on above: Performed By: #### C MP, HSTROPN ####[facility] Dphftrctqh[address] [place] [address]Dr. Garima Pulliam EGFR-AF SWEDISH >60 Normal >=60 [facility] Comment on above: Performed By: #### C MP, HSTROPN ####[facility] Eyghpzgvuh[address] [place] [address]Dr. Chapislan Pulliam EGFR-NON AF SWEDISH >60 Normal >=60 [facility] Comment on above: Performed By: #### C MP, HSTROPN ####[facility] Cwvlubcrnx32[address] [place] [address]Dr. Garima Pulliam Globulin (S) [Mass/Vol] 2.8 g/dL Normal [facility] Comment on above: Performed By: #### C MP, HSTROPN ####[facility] Thcinsjlym[address] [place] [address]Dr. Garima Pulliam Glucose [Mass/Vol] 133 mg/dL Critically high 74-106 [facility] Comment on above: Performed By: #### C MP, HSTROPN ####[facility] Khbxbynqvo56[address] [place] [address]Dr. Chapisrenu Pulliam Potassium [Moles/Vol] 3.6 mmol/L Normal 3.5-5.1 [facility] Comment on above: Performed By: #### C MP, HSTROPN ####[facility] Oxkjybkzai[address] [place] [address]Dr. Chapisrenu Pulliam Protein [Mass/Vol] 6.3 g/dL Critically low 6.4-8.2 Th [facility] Comment on above: Performed By: #### C MP, HSTROPN ####[facility] Dtlblhxbvj[address] [place], [place] [address]Dr. Chapisrenu Pulliam Sodium [Moles/Vol] 137 mmol/L Normal 136-[address] [facility] Comment on above: Performed By: #### C MP, HSTROPN ####[facility] Yoftkriang6[address] [place], [place] [address]Dr. Garima Pulliam Urea nitrogen [Mass/Vol] 15.0 mg/dL Normal 7.0-18.0 [facility] Comment on above: Performed By: #### C DAVID HSTROPN ####[facility] [address]sfkcojbv[address] [place] [address]Dr. Chapisrenu Pulliam Urea nitrogen/Creatinine [Mass ratio] 22.1 mg/mg Normal [facility] Comment on above: Performed By: #### C DAVID HSTROPN ####[facility] [address]mschtrkof[address] [place] [address]Dr. Garima Hreaclio TROPONIN, HIGH SENSITIVITYon 09-26-2022 HSTROP 12.8 pg/mL Normal 4.0-76.1 [facility] Comment on above: Result Comment: CUT- OFF POINTS HAVE BEEN ESTABLISHED BASED ON THE FOURTH UNIVERSAL DEFINITIONS OF MYOCARDIALINFARCTION. THE UPPER REFERENCE LIMIT (URL) OF TROPONIN, DEFINED THE 99TH PERCENTILE OFcTnI DISTRIBUTION IN A REFERENCE POPULATION, HAS BEEN CONFIRMED THE DECISION THRESHOLDFOR [place] DIAGNOSIS. Performed By: #### C DAVID HSTROPN ####[facility] [address]jrmuvp[address] [place] [address]Dr. Chapisrenu Pulliam XR CHEST 1 Von 09-26-2022 XR CHEST 1 V Normal [facility] XR CHEST 1 Von 09-16-2022 XR CHEST 1 V Normal [facility] CBC AUTO DIFFon 09-15-2022 BASO # 0.0 103/ul Normal 0.0-0.1 [facility] Comment on above: Performed By: #### C BC ####[facility] Tdqfthfqdp[address] [place] [address]Dr. Garima Heraclio Basophils/100 WBC (Bld) 0.1 % Critically low 0.2-2.0 [facility] Comment on above: Performed By: #### C BC ####[facility] Ivqutgseve[address] [place] [address]Dr. Garima Pulliam EO # 0.0 103/ul Normal 0.0-0.7 [facility] Comment on above: Performed By: #### C BC ####[facility] Xcbltxlaeq6354 [place] [address]Dr. Garima Pulliam Eosinophils/100 WBC (Bld) 0.1 % Critically low 0.9-7.0 [facility] Comment on above: Performed By: #### C BC ####[facility] Xvxmfjrnjh36[address] [place] [address]Dr. Garima Pulliam Erythrocyte distribution width (RBC) [Ratio] 14.1 % Normal 11.0-15.0 [facility] Comment on above: Performed By: #### C BC ####[facility] Iowqqvaljz[address] [place], [place] [address]Dr. Garima Pulliam Hematocrit (Bld) [Volume fraction] 46.1 % Normal 42.0-54.0 [facility] Comment on above: Performed By: #### C BC ####[facility] Vunhlqcdei[address] [place], [place] [address]Dr. Garima Pulliam Hemoglobin (Bld) [Mass/Vol] 15.0 g/dL Normal 14.0-18.0 [facility] Comment on above: Performed By: #### C BC ####[facility] Ciqfxgqoyc[address] [place], [place] [address]Dr. Garima Pulliam IG # 0.03 10e3/ul Normal 0.00-0.03 [facility] Comment on above: Performed By: #### C BC ####[facility] Immtknmsqc[address] [place], [place] [address]Dr. Garima Pulliam IG % 0.3 % Normal 0.0-0.5 [facility] Comment on above: Performed By: #### C BC ####[facility] Xleuoehnqe6[address] [place], [place] [address]Dr. Garima Pulliam LYMPH # 0.6 103/ul Critically low 1.2-3.8 [facility] Comment on above: Performed By: #### C BC ####[facility] Hfulmdezyg[address] [place], [place] [address]Dr. Garima Pulliam Lymphocytes/100 WBC (Bld) 5.8 % Critically low 20.5-60.0 [facility] Comment on above: Performed By: #### C BC ####[facility] [address]trjmefhsg[address] [place] [id number]. Garima Pulliam MANUAL DIFF REQ NO Normal [facility] Comment on above: Performed By: #### C BC ####[facility] [address]ffvfmff47[address] [place] [address]Dr. Garima Pulliam MCH (RBC) [Entitic mass] 30.2 pg Normal 25.9-34.0 [facility] Comment on above: Performed By: #### C BC ####[facility] [address]jslwargf[address] [place] [address]Dr. Garima Pulliam MCHC (RBC) [Mass/Vol] 32.5 g/dL Normal 29.9-35.2 [facility] Comment on above: Performed By: #### C BC ####[facility] Ejpbejbktw17[address] [place] [address]Dr. Garima Pulliam MCV (RBC) [Entitic vol] 92.8 fL Normal 80.0-94.0 [facility] Comment on above: Performed By: #### C BC ####[facility] Cmnduzggle6[address] [place] [address]Dr. Garima Heraclio MONO # 0.3 103/ul Normal 0.3-0.8 [facility] Comment on above: Performed By: #### C BC ####[facility] Gghkuczzjg0861 [place] [address]Dr. Garima Heraclio Monocytes/100 WBC (Bld) 3.2 % Normal 1.7-12.0 [facility] Comment on above: Performed By: #### C BC ####[facility] Vocgxgaebk8[address] [place] [address]Dr. Garima Pulliam NEUT # 9.8 103/ul Critically high 1.4-6.5 [facility] Comment on above: Performed By: #### C BC ####[facility] [address]acgwpst[address] [place] [address]Dr. Garima Pulliam Neutrophils/100 WBC (Bld) 90.5 % Critically high 43.0-75.0 [facility] Comment on above: Performed By: #### C BC ####[facility] Akaswqobco[address] [place] [address]Dr. Garima Pulliam Platelet mean volume (Bld) [Entitic vol] 9.4 fL Critically low 9.5-13.5 [facility] Comment on above: Performed By: #### C BC ####[facility] [address]vwecfeegy[address] [place] [address]Dr. Garima Pulliam PLT 208 103/ul Normal 150-450 [facility] Comment on above: Performed By: #### C BC ####[facility] Fasjagyewa[address] [place] [address]Dr. Garima Pulliam RBC 4.97 106/ul Normal 4.70-6.10 [facility] Comment on above: Performed By: #### C BC ####[facility] Cwoywazpxj06[address] [place] [address]Dr. Garima Pulliam WBC 10.8 103/ul Normal 4.0-11.0 [facility] Comment on above: Performed By: #### C BC ####[facility] Jmghbafpnl[address] [place] [address]Dr. Garima Pulliam PROF 14(COMP METB)on 022 Albumin [Mass/Vol] 4.0 g/dL Normal 3.4-5.[address] [facility] Comment on above: Performed By: #### C MP ####[facility] Downbzyamh[address] [place] [address]Dr. Garima Pulliam Albumin/Globulin [Mass ratio] 1.5 {ratio} Normal [facility] Comment on above: Performed By: #### C MP ####[facility] Tgieufgelv6920 [place] [address]Dr. Garima Pulliam ALP [Catalytic activity/Vol] 73 U/L Normal 46-116 [facility] Comment on above: Performed By: #### C MP ####[facility] Lnbbdblwzm5082 [place] [address]Dr. Garima Pulliam ALT [Catalytic activity/Vol] 42 U/L Normal 16-63 [facility] Comment on above: Performed By: #### C MP ####[facility] Atesmrxrqf4719 [place] [address]Dr. Garima Pulliam Anion gap [Moles/Vol] 9.1 mmol/L Normal [facility] Comment on above: Performed By: #### C MP ####[facility] Erxminqoex[address] [place], [place] [address]Dr. Garima Pulliam AST [Catalytic activity/Vol] 28 U/L Normal 15-37 [facility] Comment on above: Performed By: #### C MP ####[facility] Fpupknpbeu86[address] [place], [place] [address]Dr. Garima Pulliam Bilirubin [Mass/Vol] 0.6 mg/dL Normal 0.2-1.0 [facility] Comment on above: Performed By: #### C MP ####[facility] Dicogzbbgp008[address] [place], [place] [address]Dr. Garima Pulliam Calcium [Mass/Vol] 8.6 mg/dL Normal 8.5-10.1 [facility] Comment on above: Performed By: #### C MP ####[facility] Xaxvfsrtsh9[address] [place], [place] [address]Dr. Garima Pulliam Chloride [Moles/Vol] 105 mmol/L Normal 98-107 [facility] Comment on above: Performed By: #### C MP ####[facility] Kfzrsuygoh[address] [place], [place] [address]Dr. Garima Pulliam CO2 [Moles/Vol] 28.5 mmol/L Normal 21.0-32.0 [facility] Comment on above: Performed By: #### C MP ####[facility] Saeypbdlgz5899[address] [place], [place] [address]Dr. Garima Heraclio Creatinine [Mass/Vol] 0.78 mg/dL Normal 0.70-1.30 [facility] Comment on above: Performed By: #### C MP ####[facility] Fzcnapqpmi025[address] [place], [place] [address]Dr. Chapisrenu Heraclio EGFR-AF SWEDISH >60 Normal >=60 [facility] Comment on above: Performed By: #### C MP ####[facility] Lwjcvodoxo92[address] [place], [place] [address]Dr. Garima Pulliam EGFR-NON AF SWEDISH >60 Normal >=60 [facility] Comment on above: Performed By: #### C MP ####[facility] Myoneguddu7[address] [place] [address]Dr. Garima Pulliam Globulin (S) [Mass/Vol] 2.7 g/dL Normal [facility] Comment on above: Performed By: #### C MP ####[facility] Brikysmbee[address] [place] [address]Dr. Garima Pulliam Glucose [Mass/Vol] 220 mg/dL Critically high 74-106 T [facility] Comment on above: Performed By: #### C MP ####[facility] Iyleuklltp5[address] [place] [address]Dr. Garima Pulliam Potassium [Moles/Vol] 3.6 mmol/L Normal 3.5-5.1 [facility] Comment on above: Performed By: #### C MP ####[facility] Ufbtpvqexx2[address] [place], [place] [address]Dr. Garima Pulliam Protein [Mass/Vol] 6.7 g/dL Normal 6.4-8.[address] [facility] Comment on above: Performed By: #### C MP ####[facility] Ogpigijocg3[address] [place], [place] [address]Dr. Garima Pulliam Sodium [Moles/Vol] 139 mmol/L Normal 136-[address] [facility] Comment on above: Performed By: #### C MP ####[facility] Qbxfhcfpje[address] [place], [place] [address]Dr. Garima Pulliam Urea nitrogen [Mass/Vol] 11.0 mg/dL Normal 7.0-18.0 [facility] Comment on above: Performed By: #### C MP ####[facility] Mkfihmqwux12[address] [place], [place] [address]Dr. Garima Pulliam Urea nitrogen/Creatinine [Mass ratio] 14.1 mg/mg Normal [facility] Comment on above: Performed By: #### C MP ####[facility] Ghfdhxmunk30[address] [place], [place] [address]Dr. Garima Pulliam CARDIAC NASH 3-6on 2 CK [Catalytic activity/Vol] 240 U/L Normal 39-308 [facility] Comment on above: Performed By: #### C MREP ####[facility] Qvurgxoqdf7[address] [place] [address]Dr. Garima Pulliam CK.MB [Mass/Vol] 10.38 ng/mL Critically high <=3.60 Th [facility] Comment on above: Performed By: #### C MREP ####[facility] Xjldqhhume9203 [place] [address]Dr. Garima Pulliam HSTROP 18.5 pg/mL Normal 4.0-76.1 [facility] Comment on above: Result Comment: CUT- OFF POINTS HAVE BEEN ESTABLISHED BASED ON THE FOURTH UNIVERSAL DEFINITIONS OF MYOCARDIALINFARCTION. THE UPPER REFERENCE LIMIT (URL) OF TROPONIN, DEFINED THE 99TH PERCENTILE OFcTnI DISTRIBUTION IN A REFERENCE POPULATION, HAS BEEN CONFIRMED THE DECISION THRESHOLDFOR [place] DIAGNOSIS. Performed By: #### C MREP ####[facility] Jnzpcrrkuk5[address] [place] [address]Dr. Garima Pulliam CK [Catalytic activity/Vol] 257 U/L Normal 39-308 [facility] Comment on above: Performed By: #### C MREP ####[facility] Ohjaekgxyq[address] [place], [place] [address]Dr. Garima Pulliam CK.MB [Mass/Vol] 9.89 ng/mL Critically high <=3.60 [facility] Comment on above: Performed By: #### C MREP ####[facility] Qbhufgbzpe[address] [place], [place] [address]Dr. Garima Pulliam HSTROP 16.9 pg/mL Normal 4.0-76.1 [facility] Comment on above: Result Comment: CUT- OFF POINTS HAVE BEEN ESTABLISHED BASED ON THE FOURTH UNIVERSAL DEFINITIONS OF MYOCARDIALINFARCTION. THE UPPER REFERENCE LIMIT (URL) OF TROPONIN, DEFINED THE 99TH PERCENTILE OFcTnI DISTRIBUTION IN A REFERENCE POPULATION, HAS BEEN CONFIRMED THE DECISION THRESHOLDFOR [place] DIAGNOSIS. Performed By: #### C MREP ####[facility] Ymnfibsyiv1906 [place] [address]Dr. Garima Heraclio CBC AUTO DIFFon 10-22-2022 BASO # 0.0 103/ul Normal 0.0-0.1 [facility] Comment on above: Performed By: #### C BC ####[facility] Pulmwmvtmc2093 [place] [id number]. Garima Pulliam Basophils/100 WBC (Bld) 0.1 % Critically low 0.2-2.0 [facility] Comment on above: Performed By: #### C BC ####[facility] Gbowpaovbd6503 [place] [address]Dr. Garima Pulliam EO # 0.0 103/ul Normal 0.0-0.7 [facility] Comment on above: Performed By: #### C BC ####[facility] V[address]jbsffqsm[address] [place], [place] [address]Dr. Chapisrenu Heraclio Eosinophils/100 WBC (Bld) 0.0 % Critically low 0.9-7.0 [facility] Comment on above: Performed By: #### C BC ####[facility] Upyiaozbyr94[address] [place], [place] [address]Dr. Garima Pulliam Erythrocyte distribution width (RBC) [Ratio] 13.6 % Normal 11.0-15.0 [facility] Comment on above: Performed By: #### C BC ####[facility] Tbptepotri[address] [place], [place] [address]Dr. Garima Pulliam Hematocrit (Bld) [Volume fraction] 48.2 % Normal 42.0-54.0 [facility] Comment on above: Performed By: #### C BC ####[facility] Sqqavtdpqv61[address] [place], [place] [address]Dr. Garima Pulliam Hemoglobin (Bld) [Mass/Vol] 16.0 g/dL Normal 14.0-18.0 [facility] Comment on above: Performed By: #### C BC ####[facility] Sinwhxlipu78[address] [place], [place] [address]Dr. Chapisrenu Heraclio IG # 0.02 10e3/ul Normal 0.00-0.03 [facility] Comment on above: Performed By: #### C BC ####[facility] Fisfnzfhdx9473 [place] [phone]. Garima Pulliam IG % 0.3 % Normal 0.0-0.5 [facility] Comment on above: Performed By: #### C BC ####[facility] Ttmhoqcidu3[address] [place] [address]Dr. Garima Heraclio LYMPH # 0.5 103/ul Critically low 1.2-3.8 [facility] Comment on above: Performed By: #### C BC ####[facility] Lspojdanob4694 [place] [address]Dr. Garima Heraclio Lymphocytes/100 WBC (Bld) 7.7 % Critically low 20.5-60.0 [facility] Comment on above: Performed By: #### C BC ####[facility] Hmadhartac[address] [place], [place] [address]Dr. Chapisrenu Pulliam MANUAL DIFF REQ NO Normal [facility] Comment on above: Performed By: #### C BC ####[facility] Efofucudcw[address] [place], [place] [address]Dr. Garima Heraclio MCH (RBC) [Entitic mass] 30.6 pg Normal 25.9-34.0 [facility] Comment on above: Performed By: #### C BC ####[facility] Meefzebvao54[address] [place], [place] [address]Dr. Garima Pulliam MCHC (RBC) [Mass/Vol] 33.2 g/dL Normal 29.9-35.2 [facility] Comment on above: Performed By: #### C BC ####[facility] Kvzgijiryc[address] [place], [place] [address]Dr. Garima Heraclio MCV (RBC) [Entitic vol] 92.2 fL Normal 80.0-94.0 [facility] Comment on above: Performed By: #### C BC ####[facility] Khytvwzqmx[address] [place], [place] [address]Dr. Garima Pulliam MONO # 0.0 103/ul Critically low 0.3-0.8 [facility] Comment on above: Performed By: #### C BC ####[facility] Gbnvsfurxx5677 [place] [address]Dr. Garima Pulliam Monocytes/100 WBC (Bld) 0.4 % Critically low 1.7-12.0 [facility] Comment on above: Performed By: #### C BC ####[facility] Mqxazcdyys6721 [place] [address]Dr. Garima Pulliam NEUT # 6.2 103/ul Normal 1.4-6.5 [facility] Comment on above: Performed By: #### C BC ####[facility] Nzcphvlidp1651 [place] [address]Dr. Garima Pulliam Neutrophils/100 WBC (Bld) 91.5 % Critically high 43.0-75.0 [facility] Comment on above: Performed By: #### C BC ####[facility] Pxdwwugjsj8682 [place] [address]Dr. Garima Pulliam Platelet mean volume (Bld) [Entitic vol] 8.7 fL Critically low 9.5-13.5 [facility] Comment on above: Performed By: #### C BC ####[facility] Dnxhleuhpz3192 [place] [address]Dr. Garima Pulliam PLT 179 103/ul Normal 150-450 [facility] Comment on above: Performed By: #### C BC ####[facility] Aosfdssrok5383 [place] [address]Dr. Garima Pulliam RBC 5.23 106/ul Normal 4.70-6.10 [facility] Comment on above: Performed By: #### C BC ####[facility] Cynrbexxbt9258 [place] [address]Dr. Garima Pulliam WBC 6.7 103/ul Normal 4.0-11.0 [facility] Comment on above: Performed By: #### C BC ####[facility] Xwttiexwxo3045 [place] [address]Dr. Garima Pulliam PROF CHEM 8 (BAS METB)on Anion gap [Moles/Vol] 12.1 mmol/L Normal Th [facility] Comment on above: Performed By: #### B MP ####[facility] Eoezdyhayp9317 [place] [phone]. Garima Pulliam Calcium [Mass/Vol] 8.7 mg/dL Normal 8.5-10.1 [facility] Comment on above: Performed By: #### B MP ####[facility] Mtxuhauopo5671 [place] [phone]. Garima Pulliam Chloride [Moles/Vol] 105 mmol/L Normal 98-107 [facility] Comment on above: Performed By: #### B MP ####[facility] Vcczmhmxvz4758 [place] [phone]. Garima Pulliam CO2 [Moles/Vol] 25.5 mmol/L Normal 21.0-32.0 [facility] Comment on above: Performed By: #### B MP ####[facility] Hmdzmbtlti5913 [place] [address]Dr. Garima Pulliam Creatinine [Mass/Vol] 0.63 mg/dL Critically low 0.70-1.30 [facility] Comment on above: Performed By: #### B MP ####[facility] [address] [place] [address]Dr. Garima Pulliam EGFR-AF SWEDISH >60 Normal >=60 [facility] Comment on above: Performed By: #### B MP ####[facility] [address] [place] [address]Dr. Garima Pulliam EGFR-NON AF SWEDISH >60 Normal >=60 [facility] Comment on above: Performed By: #### B MP ####[facility] [address]xf[address] [place] [address]Dr. Garima Pulliam Glucose [Mass/Vol] 162 mg/dL Critically high 74-106 [facility] Comment on above: Performed By: #### B MP ####[facility] [address] [place], [place] [address]Dr. Garima Pulliam Potassium [Moles/Vol] 3.6 mmol/L Normal 3.5-5.1 [facility] Comment on above: Performed By: #### B MP ####[facility] [address] [place], [place] [address]Dr. Garima Pulliam Sodium [Moles/Vol] 139 mmol/L Normal 136-[address] [facility] Comment on above: Performed By: #### B DAVID ####[facility] [address] [place] [address]Dr. Garima Pulliam Urea nitrogen [Mass/Vol] 9.0 mg/dL Normal 7.0-18.0 [facility] Comment on above: Performed By: #### B DAVID ####[facility] [address]fcjc[address] [place] [address]Dr. Garima Pulliam Urea nitrogen/Creatinine [Mass ratio] 14.3 mg/mg Normal [facility] Comment on above: Performed By: #### B DAVID ####[facility] [address]hor[address] [place] [address]Dr. Chapisrenu Pulliam CARDIAC NASH ADMITon 09-12- 022 CK [Catalytic activity/Vol] 304 U/L Normal 39-308 [facility] Comment on above: Performed By: #### B NANCY HERNANDEZ ####[facility] [address]rojmg[address] [place] [address]Dr. Garima Pulliam CK.MB [Mass/Vol] 11.81 ng/mL Critically high <=3.60 [facility] Comment on above: Performed By: #### B NANCY HERNANDEZ ####[facility] [address]wh[address] [place] [address]Dr. Garima Heraclio HSTROP 13.3 pg/mL Normal 4.0-76.1 [facility] Comment on above: Result Comment: CUT- OFF POINTS HAVE BEEN ESTABLISHED BASED ON THE FOURTH UNIVERSAL DEFINITIONS OF MYOCARDIALINFARCTION. THE UPPER REFERENCE LIMIT (URL) OF TROPONIN, DEFINED THE 99TH PERCENTILE OFcTnI DISTRIBUTION IN A REFERENCE POPULATION, HAS BEEN CONFIRMED THE DECISION THRESHOLDFOR [place] DIAGNOSIS. Performed By: #### B NANCY HERNANDEZ ####[facility] [address] [place] [address]Dr. Garima Pulliam DORIS 133 ng/mL Critically high 16-96 [facility] Comment on above: Performed By: #### B NANCY HERNANDEZ ####[facility] [address] [place] [address]Dr. Garima Pulliam CBC AUTO DIFFon 09-12-2022 BASO # 0.0 103/ul Normal 0.0-0.1 [facility] Comment on above: Performed By: #### C BC ####[facility] [address] [place], [place] [address]Dr. Garima Heraclio Basophils/100 WBC (Bld) 0.2 % Normal 0.2-2.0 [facility] Comment on above: Performed By: #### C BC ####[facility] Igdddermlh[address] [place], [place] [address]Dr. Garima Heraclio EO # 0.2 103/ul Normal 0.0-0.7 [facility] Comment on above: Performed By: #### C BC ####[facility] Xprpvagxps[address] [place], [place] [address]Dr. Chapisrenu Pulliam Eosinophils/100 WBC (Bld) 1.3 % Normal 0.9-7.0 [facility] Comment on above: Performed By: #### C BC ####[facility] Shgzesjuqq[address] [place], [place] [address]Dr. Garima Pulliam Erythrocyte distribution width (RBC) [Ratio] 13.7 % Normal 11.0-15.0 [facility] Comment on above: Performed By: #### C BC ####[facility] Rclsmoihgx[address] [place], [place] [address]Dr. Garima Pulliam Hematocrit (Bld) [Volume fraction] 46.4 % Normal 42.0-54.0 [facility] Comment on above: Performed By: #### C BC ####[facility] [address]uy[address] [place], [place] [address]Dr. Garima Pulliam Hemoglobin (Bld) [Mass/Vol] 15.7 g/dL Normal 14.0-18.0 [facility] Comment on above: Performed By: #### C BC ####[facility] Otegwyhext[address] [place], [place] [address]Dr. Garima Pulliam IG # 0.04 10e3/ul Critically high 0.00-0.03 [facility] Comment on above: Performed By: #### C BC ####[facility] [address] [place] [address]Dr. Garima Pulliam IG % 0.3 % Normal 0.0-0.5 [facility] Comment on above: Performed By: #### C BC ####[facility] [address] [place] [address]Dr. Garima Pulliam LYMPH # 1.7 103/ul Normal 1.2-3.8 [facility] Comment on above: Performed By: #### C BC ####[facility] [address] [place] [address]Dr. Garima Pulliam Lymphocytes/100 WBC (Bld) 11.5 % Critically low 20.5-60.0 [facility] Comment on above: Performed By: #### C BC ####[facility] [address] [place] [address]Dr. Garima Pulliam MANUAL DIFF REQ NO Normal [facility] Comment on above: Performed By: #### C BC ####[facility] [address]wvv[address] [place] [address]Dr. Garima Pulliam MCH (RBC) [Entitic mass] 31.0 pg Normal 25.9-34.0 [facility] Comment on above: Performed By: #### C BC ####[facility] [address]ft[address]34[address] [place] [address]Dr. Garima Pulliam MCHC (RBC) [Mass/Vol] 33.8 g/dL Normal 29.9-35.2 [facility] Comment on above: Performed By: #### C BC ####[facility] Yfifbylxwl[address] [place] [address]Dr. Garima Pulliam MCV (RBC) [Entitic vol] 91.7 fL Normal 80.0-94.0 [facility] Comment on above: Performed By: #### C BC ####[facility] [address] [place] [address]Dr. Garima Heraclio MONO # 0.8 103/ul Normal 0.3-0.8 [facility] Comment on above: Performed By: #### C BC ####[facility] [address] [place] [address]Dr. Garima Pulliam Monocytes/100 WBC (Bld) 5.2 % Normal 1.7-12.0 [facility] Comment on above: Performed By: #### C BC ####[facility] [address] [place] [address]Dr. Garima Pulliam NEUT # 11.7 103/ul Critically high 1.4-6.5 [facility] Comment on above: Performed By: #### C BC ####[facility] [address] [place] [address]Dr. Garima Pulliam Neutrophils/100 WBC (Bld) 81.5 % Critically high 43.0-75.0 [facility] Comment on above: Performed By: #### C BC ####[facility] [address]th[address]xf[address] [place] [address]Dr. Garima Pulliam Platelet mean volume (Bld) [Entitic vol] 8.6 fL Critically low 9.5-13.5 [facility] Comment on above: Performed By: #### C BC ####[facility] [address]uv[address] [place] [address]Dr. Garima Pulliam PLT 191 103/ul Normal 150-450 [facility] Comment on above: Performed By: #### C BC ####[facility] L[address] [place], [place] [address]Dr. Garima Pulliam RBC 5.06 106/ul Normal 4.70-6.10 [facility] Comment on above: Performed By: #### C BC ####[facility] [address] [place], [place] [address]Dr. Garima Pulliam WBC 14.4 103/ul Critically high 4.0-11.0 [facility] Comment on above: Performed By: #### C BC ####[facility] [address] [place], [place] [address]Dr. Garima Pulliam [facility]24 SARS-CoV-2 (COVID-19) RNA MARIE+probe Ql (Unsp spec) Not detected Normal NOT DETECTED [facility] Comment on above: Result Comment: When [...] for this test is supported by the [place] of Health and Human Service's declaration that [...] be used). Performed By: #### C VDTBH ####[facility] Jrgbklzkam[address] [place], [place] [address]Dr. Garima Pulliam LACTATE/LACTIC ACIDon 2021 Lactate [Moles/Vol] 1.0 mmol/L Normal 0.4-1.9 [facility] Comment on above: Performed By: #### L ACT ####[facility] [address]jl[address] [place], [place] [address]Dr. Garima Pulliam PROF CHEM 8 (BAS METB)on Anion gap [Moles/Vol] 11.6 mmol/L Normal [facility] Comment on above: Performed By: #### B NANCY HERNANDEZ ####[facility] [address]eqty[address] [place] [address]Dr. Garima Pulliam Calcium [Mass/Vol] 9.2 mg/dL Normal 8.5-10.[address] [facility] Comment on above: Performed By: #### B NANCY HERNANDEZ ####[facility] [address]esuch[address] [place] [address]Dr. Garima Pulliam Chloride [Moles/Vol] 105 mmol/L Normal 98-107 [facility] Comment on above: Performed By: #### B MP, CMADM ####[facility] [address] [place] [address]Dr. Garima Pulliam CO2 [Moles/Vol] 25.9 mmol/L Normal 21.0-32.0 [facility] Comment on above: Performed By: #### B DAVID, CMADM ####[facility] [address]ax[address] [place] [address]Dr. Garima Pulliam Creatinine [Mass/Vol] 0.72 mg/dL Normal 0.70-1.30 [facility] Comment on above: Performed By: #### B DAVID, CMADM ####[facility] [address] [place] [address]Dr. Garima Pulliam EGFR-AF SWEDISH >60 Normal >=60 [facility] Comment on above: Performed By: #### B DAVID, CMADM ####[facility] [address] [place] [address]Dr. Chapisrenu Pulliam EGFR-NON AF SWEDISH >60 Normal >=60 [facility] Comment on above: Performed By: #### B DAVID, CMAANA ROSA ####[facility] [address] [place] [address]Dr. Garima Pulliam Glucose [Mass/Vol] 111 mg/dL Critically high 74-106 [facility] Comment on above: Performed By: #### B DAVID, CMADM ####[facility] [address] [place] [address]Dr. Chapisrenu Pulliam Potassium [Moles/Vol] 3.5 mmol/L Normal 3.5-5.1 [facility] Comment on above: Performed By: #### B DAVID, CMADM ####[facility] [address] [place] [address]Dr. Chapisrenu Pulliam Sodium [Moles/Vol] 139 mmol/L Normal 136-[address] [facility] Comment on above: Performed By: #### B DAVID, CMADM ####[facility] [address]br[address]yls[address] [place] [address]Dr. Garima Pulliam Urea nitrogen [Mass/Vol] 7.0 mg/dL Normal 7.0-18.0 [facility] Comment on above: Performed By: #### B DAVID, CMADM ####[facility] [address] [place], [place] [address]Ii. Garima Pulliam Urea nitrogen/Creatinine [Mass ratio] 9.7 mg/mg Normal [facility] Comment on above: Performed By: #### B MP, CMADM ####[facility] [address] [place], [place] [address]Iw. Garima Pulliam XR CHEST 1 Von 09-12-2022 XR CHEST 1 V Normal [facility] Encounters Encounter Date Encounter Type Care [...] Facility:H1 Payers Date Payer Category Payer Unknown [id number] 1960 Medicaid [id number] 1960 Unknown [id number] 1960 Unknown [id number] 1955 Unknown [id number] 2.16.84 0.1.991990.3.579.2.593 1954 Unknown [id number] 2.16.84 0.1.853608.3.579.2.593 1954 Unknown [id number] 2.16.84 0.1.191911.3.579.2.593 1954 Unknown [id number] 2.16.84 0.1.650932.3.579.2.593 1954 Unknown [id number] 2.16.84 0.1.017959.3.579.2.593 1954 Unknown [id number] 2.16.84 0.1.975685.3.579.2.593 1954 Unknown [id number] 2.16.84 0.1.801442.3.579.2.593 1954 Unknown [id number] 2.16.84 0.1.572798.3.579.2.593 1954 Unknown [id number] 2.16.84 0.1.950227.3.579.2.593 1954 Unknown [id number] 2.16.84 0.1.004165.3.579.2.593 1954 Unknown [id number] 2.16.84 0.1.747548.3.579.2.593 1954 Unknown [id number] 2.16.84 0.1.215406.3.579.2.593 1954 Unknown [id number] 2.16.84 0.1.468153.3.579.2.593 1954 Unknown [id number] 2.16.84 0.1.273513.3.579.2.593 1954 Unknown [id number] 2.16.84 0.1.966423.3.579.2.593 1954 Unknown [id number] 2.16.84 0.1.259427.3.579.2.593 1954 Unknown [id number] 2.16.84 0.1.368812.3.579.2.593 1954 Unknown [id number] 2.16.84 0.1.111589.3.579.2.593 1954 Unknown [id number] 2.16.84 0.1.838586.3.579.2.593 1954 Unknown [id number] 2.16.84 0.1.942232.3.579.2.593 Summary Purpose Family History No Family History Records Found Advance Directives No Advanced Directives Records Found Additional Source Comments (unrecognized sect ion and content) No Status Records Found INFORMATION SOURCE (unrecogn ized section and content) DATE CREATED AUTHOR 04/08/2023 [facility] FOR RECORDS PERTAINING TO PATIENTS WHO [...] BE BASED ON THE PRIMARY CLINICAL RECORDS. [facility]. provides no warranty or guarantee of the accuracy or completeness of information in this document.
--- NOTE | 2024-05-26 17:17 | ED_ITS ---
HPI HPI - General Adult General Chief complaint: Shortness of Breath/Dyspnea Stated complaint: sob Time Seen by Provider: 05/26/24 17:02 Source: patient Mode of arrival: Wheelchair History of Present Illness HPI narrative: Patient is a 68-year-old male with a history of COPD, chronic lung disease, medication noncompliance, continued smoking who presents to the ER for breathing treatment. He is frequently seen in this emergency department for the same. He has no active chest pain, fevers or hemoptysis. He continues to be frustrated that he cannot get home oxygen. He apparently does not qualify. He last used a home breathing treatment 1 hour ago, he believes that hospital breathing treatments are better. He states he has been compliant with his blood pressure medication. Related Data Home Medications ?Medication ?Instructions ?Recorded ?Confirmed albuterol sulfate 90 mcg/actuation 2 inh inhalation Q6H PRN shortness 03/13/24 05/26/24 aerosol inhaler of breath or wheezing Previous Rx's ?Medication ?Instructions ?Recorded losartan 100 mg tablet 100 mg PO DAILY #30 tabs 12/27/23 albuterol sulfate 2.5 mg/3 mL 2.5 mg (3 mL) inhalation Q6H PRN 05/26/24 (0.083 %) solution for nebulization shortness of breath or wheezing #90 mL Allergies Allergy/AdvReac Type Severity Reaction Status Date / Time No Known Drug Allergies Allergy Verified 05/14/24 20:54 Opioid HPI Opioid Management Most Recent Opioid Data: Last ORT Total Score 0 01/29/24 06:36 Last ORT Risk Category Low Risk 01/29/24 06:36 Review of Systems ROS Constitutional Denies: fever or chills Ears, nose, mouth, and throat Denies: throat pain or nasal congestion Cardiovascular Denies: chest pain Respiratory Reports: shortness of breath and cough Gastrointestinal Denies: nausea or vomiting Integumentary/Breast Denies: rash Neurological Denies: headache Hematologic/Lymphatic Denies: easy bruising or easy bleeding [facility] Medical History (Updated 05/26/24 @ 18:35 by PALMIRA Pederson) Hypokalemia ?E87.6 - Hypokalemia (ICD-10) New onset type 2 diabetes mellitus ?E11.9 - Type 2 diabetes mellitus without complications (ICD-10) Lower extremity edema ?R60.0 - Localized edema (ICD-10) Edema ?R60.9 - Edema, unspecified (ICD-10) Acute hyperglycemia ?R73.9 - Hyperglycemia, unspecified (ICD-10) Tobacco abuse ?Z72.0 - Tobacco use (ICD-10) HTN (hypertension) ?I10 - Essential (primary) hypertension (ICD-10) Community acquired pneumonia ?J18.9 - Pneumonia, unspecified organism (ICD-10) Chronic obstructive pulmonary disease ?J44.9 - Chronic obstructive pulmonary disease, unspecified (ICD-10) Acute exacerbation of chronic obstructive pulmonary disease (COPD) ?J44.1 - Chronic obstructive pulmonary disease with (acute) exacerbation (ICD-10) RLL pneumonia ?J18.9 - Pneumonia, unspecified organism (ICD-10) COPD (chronic obstructive pulmonary disease) ?J44.9 - Chronic obstructive pulmonary disease, unspecified (ICD-10) Surgical History (Updated 01/29/24 @ 06:45 by Latonia Martin RN) Hx of tonsillectomy ?Z90.89 - Acquired absence of other organs (ICD-10) Family History (Updated 12/25/23 @ 21:28 by Kym Ordaz) Mother Family history of cancer Family history of hypertension Father Family history of cancer Social History Within the past year, how often did you have a drink containing alcohol: 4 or more times a week Within the past year, how many standard drinks containing alcohol did you have on a typical day: 3 or 4 Within the past year, how often did you have six or more drinks on one occasion: less than monthly Total score: 3 Score interpretation: A score of 4 or more indicates drinking is likely to affect patient's safety. Smoking status: Current every day smoker Non-prescribed substance use: cannabis (any form) Previous occupational history: retired Highest level of school completed/degree received: high school graduate Are you now , , , , never or living with a partner: In a typical week, how many times do you talk on the telephone with family, friends, or neighbors: twice per week How often do you get together with friends or relatives: once per week How often do you attend roman catholic or hinduism services: never Do you belong to any clubs or organizations such as roman catholic groups unions, fraternal or athletic groups, or school groups: no Total score: 1 Score interpretation: A score of less than or equal to 1 indicates the most socially isolated. Little interest or pleasure in doing things: several days Feeling down, depressed, or hopeless: not at all Feel stressed/tense/nervous/anxious/difficulty sleeping: not at all Do you think of yourself as: straight/heterosexual Gender Identity: male Exam Narrative Exam Narrative: Gen.: Awake, alert, in no distress; Sitting upright in exam cart in no distress, pleasant and conversive Head: Normocephalic, atraumatic ENT: Moist mucous membranes Respiratory: No respiratory distress, Diminished lung sounds globally, patient speaks in full sentences Cardio: Regular rate and rhythm Extremities: Moves extremities equally, no pedal edema Psych: Normal mood and affect Neuro: No focal neuro deficit Skin: Warm, dry, intact Constitutional Vital Signs, click to edit/add: Last Vital Signs Temp 98.5 F 05/26/24 17:07 Pulse 72 05/26/24 19:02 Resp 18 05/26/24 19:02 BP 148/98 H 05/26/24 18:37 Pulse Ox 93 L 05/26/24 19:02 O2 Del Method Room Air 05/26/24 19:02 Course Vital Signs Vital signs: Vital Signs Temperature 98.5 F 05/26/24 17:07 Pulse Rate 71 05/26/24 17:07 Blood Pressure 160/98 H 05/26/24 17:07 Pulse Oximetry 93 L 05/26/24 17:07 Oxygen Delivery Method Room Air 05/26/24 17:07 Temperature 98.5 F 05/26/24 17:07 Pulse Rate 72 05/26/24 19:02 Respiratory Rate 18 05/26/24 19:02 Blood Pressure 148/98 H 05/26/24 18:37 Pulse Oximetry 93 L 05/26/24 19:02 Oxygen Delivery Method Room Air 05/26/24 19:02 Medical Decision Making MDM Narrative Medical decision making narrative: Patient given a breathing treatment and intramuscular Solu-Medrol in the emergency department. Chest x-ray is stable, history and exam are consistent with COPD. Patient's previous records were reviewed, he has not had a screening CT in 8 years. It was recommended based on his longstanding history of tobacco abuse to have a screening CT to rule out cancerous process. Patient states he has a PCP at the [facility], he will follow-up with them and does not wish to stay in the hospital/emergency room at this time to wait for CT results. He is stable with vital signs within normal limits at discharge. Albuterol nebs given for home. Return to the ER if symptoms change or worsen. At time of discharge, patient is sitting comfortably at bedside chair. He states to myself and nursing that he would like oxygen for home. It was explained to the patient that we cannot prescribe or approve him for home oxygen. He is surprised to hear this information. He was given additional breathing treatment and a venous blood gas was obtained. Patient discharged home after DuoNeb. SUPERVISED APC VISIT, PHYSICIAN ATTESTATION: Based on the medical record the care appears appropriate. ? Medical Records Medical records reviewed: Yes I reviewed the patient's medical records Lab Data Labs: Lab Results 05/26/24 Range/Units 19:05 VBG pH 7.409 (7.330-7.430) VBG pCO2 48.0 (40.0-52.0) mmHg Imaging Data Chest x-ray: Attestation: I have reviewed the pertinent imaging results. Radiologist's impression: ITS Impressions Chest X-Ray 05/26/24 17:06 Impression: No radiographic evidence of acute cardiopulmonary process. Electronically authenticated by: HOME BEAULIEU Date: 05/26/2024 18:30 Discharge Plan Discharge Stand Alone Forms: Portal Instructions Chief Complaint: Shortness of Breath/Dyspnea Clinical Impression: COPD (chronic obstructive pulmonary disease) Patient Disposition: Home, Self-Care Time of Disposition Decision: 18:35 Condition: Good Prescriptions / Home Meds: New albuterol sulfate 2.5 mg /3 mL (0.083 %) solution for nebulization 2.5 mg inhalation Q6H PRN (Reason: shortness of breath or wheezing) Qty: 90 0RF No Action losartan 100 mg tablet 100 mg PO DAILY Qty: 30 11RF albuterol sulfate 90 mcg/actuation HFA aerosol inhaler 2 inh inhalation Q6H PRN (Reason: shortness of breath or wheezing) Print Language: Prydeinig Instructions: COPD (Chronic Obstructive Pulmonary Disease) (ED) Referrals: SERG DUENAS [Primary Care Provider] - 1 week
[2024-05-26] MEDS: ALBUTEROL SULFATE 2.5 MG/3 ML VIAL NEB IH (17:29)
--- NOTE | 2024-05-26 17:47 | PC.NURSE ---
pt calls out and states feels like my breathing is getting worse, feels like Im going to quit breathing . This nurse has the pt on the pulse ox and explains the monitor has his O2 levels at 94% on ra, and lung sounds auscultated at this time. small amount of air flow heard in all 4 juarez, charted as diminished. Pt able to speak in full sentences. And PA notified. Pt asked for O2 to be placed and PA informed of this request. No O2 to be placed as pt;s O2 levels are 93-95% on ra. Breathing treatment complete, xray at bedside and new order rec'vd for steroid. Will inform pt of this when this nurse goes back in room.
[2024-05-26] MEDS: METHYLPREDNISOLONE SOD SUCC PF 125 MG/2 ML VIAL IM (18:03)
[2024-05-26] MEDS: IPRATROPIUM/ALBUTEROL SULFATE 3 ML AMPUL.NEB IH (19:02)
[2024-05-26 19:13] LABS: pH VBG 7.409 (7.330-7.430)
== END 2024-05-26 19:26 | disposition home or self-care (01) ==
PROVIDERS: Physician Assistant; Emergency Provider Emergency Medicine Emergency Medical Services
DX: J44.9 Chronic obstructive pulmonary disease, unspecified (principal); F17.210 Nicotine dependence, cigarettes, uncomplicated
CPT/HCPCS: 71045; 82800; 94640; 96372; 99285; 99406; J2919

== ENCOUNTER 2024-05-27 18:13 | Emergency (ER) | payer MEDICARE, SELFPAY ==
[2024-05-27] VITALS (8 sets, daily range): BP systolic 171–177; BP diastolic 94–96; PULSE 92–100; TEMP 36.8; O2SAT 91–98; BMI 23.7
--- OUTSIDE RECORDS SUMMARY | 2024-05-27 18:19 | XMS_ITS | CCD ---
Author Organization [facility] Care Team Providers Care Teacher Adult Education Name Role Phone REQUEST, DR NONE LISTED [...] source) Penicillin Drug Allergy [facility] Repository Problems Active Problems Problem Classification Problem [...] 03-27-2023 Episodic Other aftercare (1 source) Other jail (current) drug therapy; Translations: [OTH CORRECTION CURRENT [...] 0.0 103/ul Normal 0.0-0.1 [facility] Comment on above: Performed By: #### C BC ####[facility] [address]foogjp[address] [place] [address]Dr. Garima Pulliam Basophils/100 WBC (Bld) 0.3 % Normal 0.2-2.0 [facility] Comment on above: Performed By: #### C BC ####[facility] Nydjxvayei35[address] [place] [address]DrAdalberto Pulliam EO # 0.3 103/ul Normal 0.0-0.7 [facility] Comment on above: Performed By: #### C BC ####[facility] [address]wy[address] [place], [place] [address]Dr. Garima Pulliam Eosinophils/100 WBC (Bld) 2.8 % Normal 0.9-7.0 [facility] Comment on above: Performed By: #### C BC ####[facility] Erngrfhcwi[address] [place] [address]Dr. Garima Pulliam Erythrocyte distribution width (RBC) [Ratio] 13.4 % Normal 11.0-15.0 [facility] Comment on above: Performed By: #### C BC ####[facility] Fjchrtvkpa[address] [place] [address]Dr. Garima Pulliam Hematocrit (Bld) [Volume fraction] 45.7 % Normal 42.0-54.0 [facility] Comment on above: Performed By: #### C BC ####[facility] Nzsxhprbzj11[address] [place] [address]Dr. Garima Pulliam Hemoglobin (Bld) [Mass/Vol] 15.2 g/dL Normal 14.0-18.0 [facility] Comment on above: Performed By: #### C BC ####[facility] Bpsmksvsvb5356 [place] [address]Dr. Garima Pulliam IG # 0.02 10e3/ul Normal 0.00-0.03 [facility] Comment on above: Performed By: #### C BC ####[facility] Oomylzdjse95[address] [place] [address]Dr. Garima Pulliam IG % 0.2 % Normal 0.0-0.5 [facility] Comment on above: Performed By: #### C BC ####[facility] Wwvifzhzbl5380 [place] [address]Dr. Garima Pulliam LYMPH # 2.1 103/ul Normal 1.2-3.8 [facility] Comment on above: Performed By: #### C BC ####[facility] Iubfsfsbpk9827 [place] [address]Dr. Garima Pulliam Lymphocytes/100 WBC (Bld) 23.7 % Normal 20.5-60.0 [facility] Comment on above: Performed By: #### C BC ####[facility] Mkqgscpgnu9075 [place] [address]Dr. Garima Heraclio MANUAL DIFF REQ NO Normal [facility] Comment on above: Performed By: #### C BC ####[facility] Kohhwdcqyt6746 [place] [address]Dr. Garima Pulliam MCH (RBC) [Entitic mass] 30.4 pg Normal 25.9-34.0 [facility] Comment on above: Performed By: #### C BC ####[facility] Orqrgufpmo3415 [place] [address]Dr. Garima Heraclio MCHC (RBC) [Mass/Vol] 33.3 g/dL Normal 29.9-35.2 [facility] Comment on above: Performed By: #### C BC ####[facility] Rplgnpkpiu[address] [place], [place] [address]Dr. Chapisrenu Pulliam MCV (RBC) [Entitic vol] 91.4 fL Normal 80.0-94.0 [facility] Comment on above: Performed By: #### C BC ####[facility] Ucgpvrdzco[address] [place], [place] [address]Dr. Garima Heraclio MONO # 0.7 103/ul Normal 0.3-0.8 [facility] Comment on above: Performed By: #### C BC ####[facility] Uppixlwfdl[address] [place], [place] [address]Dr. Chapisrenu Pulliam Monocytes/100 WBC (Bld) 8.3 % Normal 1.7-12.0 [facility] Comment on above: Performed By: #### C BC ####[facility] Tpywsmokal4987 [place] [address]Dr. Chapisrenu Heraclio NEUT # 5.8 103/ul Normal 1.4-6.5 [facility] Comment on above: Performed By: #### C BC ####[facility] Hkedqixqnw96[address] [place], [place] [address]Dr. Garima Pulliam Neutrophils/100 WBC (Bld) 64.7 % Normal 43.0-75.0 [facility] Comment on above: Performed By: #### C BC ####[facility] Hsvdjeljmm0837 [place] [address]Dr. Garima Pulliam Platelet mean volume (Bld) [Entitic vol] 8.6 fL Critically low 9.5-13.5 [facility] Comment on above: Performed By: #### C BC ####[facility] Pnjisvwoba9024 [place] [address]Dr. Garima Pulliam PLT 230 103/ul Normal 150-450 [facility] Comment on above: Performed By: #### C BC ####[facility] Kpqykxtjch6399 [place] [address]Dr. Chapisrenu Heraclio RBC 5.00 106/ul Normal 4.70-6.10 [facility] Comment on above: Performed By: #### C BC ####[facility] Wbarrgbuvz4337 [place] [address]Dr. Garima Heraclio WBC 9.0 103/ul Normal 4.0-11.0 [facility] Comment on above: Performed By: #### C BC ####[facility] Rnuagvdcvh[address] [place] [address]Dr. Garima Pulliam MAGNESIUMon 04-04-2023 Magnesium [Mass/Vol] 1.8 mg/dL Normal 1.8-2.4 [facility] Comment on above: Performed By: #### M G ####[facility] Dzfbeynura3543 [place] [address]Dr. Chapisrenu Pulliam PROF 14(COMP METB)on 023 Albumin [Mass/Vol] 3.8 g/dL Normal 3.4-5.0 [facility] Comment on above: Performed By: #### C MP ####[facility] Lcnykgxlch6101 [place] [address]Dr. Garima Pulliam Albumin/Globulin [Mass ratio] 1.2 {ratio} Normal [facility] Comment on above: Performed By: #### C MP ####[facility] Nouzpzmehj7050 [place] [address]Dr. Garima Heraclio ALP [Catalytic activity/Vol] 84 U/L Normal 46-116 [facility] Comment on above: Performed By: #### C MP ####[facility] Brnyheucmb5[address] [place] [id number]. Garima Pulliam ALT [Catalytic activity/Vol] 31 U/L Normal 16-63 [facility] Comment on above: Performed By: #### C MP ####[facility] Tehzcdonhf3049 [place] [address]Dr. Garima Pulliam Anion gap [Moles/Vol] 12.2 mmol/L Normal [facility] Comment on above: Performed By: #### C MP ####[facility] Tjvoesrvrt6261 [place] [address]Dr. Garima Pulliam AST [Catalytic activity/Vol] 23 U/L Normal 15-37 [facility] Comment on above: Performed By: #### C MP ####[facility] Lrfxfntmhm[address] [place], [place] [address]Dr. Garima Pulliam Bilirubin [Mass/Vol] 0.5 mg/dL Normal 0.2-1.0 [facility] Comment on above: Performed By: #### C MP ####[facility] Ginohhjhsm[address] [place], [place] [address]Dr. Garima Pulliam Calcium [Mass/Vol] 9.2 mg/dL Normal 8.5-10.1 [facility] Comment on above: Performed By: #### C MP ####[facility] Vdbtjschfy8[address] [place], [place] [address]Dr. Garima Pulliam Chloride [Moles/Vol] 103 mmol/L Normal 98-107 [facility] Comment on above: Performed By: #### C MP ####[facility] Ykukkallty9173 [place] [address]Dr. Garima Pulliam CO2 [Moles/Vol] 28.5 mmol/L Normal 21.0-32.0 [facility] Comment on above: Performed By: #### C MP ####[facility] Inlvcnthsa53[address] [place], [place] [address]Dr. Garima Pulliam Creatinine [Mass/Vol] 0.74 mg/dL Normal 0.70-1.30 [facility] Comment on above: Performed By: #### C MP ####[facility] Otavrnqqhf54[address] [place] [phone]. Garima Pulliam EGFR-AF MACANESE >60 Normal >=60 [facility] Comment on above: Performed By: #### C MP ####[facility] Nhnsycteqm4631 [place] [address]Dr. Garima Heraclio EGFR-NON AF MACANESE >60 Normal >=60 [facility] Comment on above: Performed By: #### C MP ####[facility] Prfdrllkpu4588 [place] [phone]. Garima Heraclio Globulin (S) [Mass/Vol] 3.1 g/dL Normal [facility] Comment on above: Performed By: #### C MP ####[facility] Wcomrfbojc8[address] [place], [place] [address]Dr. Garima Heraclio Glucose [Mass/Vol] 93 mg/dL Normal 74-106 [facility] Comment on above: Performed By: #### C MP ####[facility] H[address]ysrrmpjg[address] [place], [place] [address]Dr. Garima Heraclio Potassium [Moles/Vol] 3.7 mmol/L Normal 3.5-5.1 [facility] Comment on above: Performed By: #### C MP ####[facility] Aboeguimdb878[address] [place], [place] [address]Dr. Garima Heraclio Protein [Mass/Vol] 6.9 g/dL Normal 6.4-8.2 [facility] Comment on above: Performed By: #### C MP ####[facility] Zfgbomofia10[address] [place], [place] [address]Dr. Garima Heraclio Sodium [Moles/Vol] 140 mmol/L Normal 136-145 [facility] Comment on above: Performed By: #### C MP ####[facility] Kqakrbjycy314[address] [place], [place] [address]Dr. Garima Pulliam Urea nitrogen [Mass/Vol] 8.0 mg/dL Normal 7.0-18.0 [facility] Comment on above: Performed By: #### C MP ####[facility] Uiastxpxgr[address] [place], [place] [address]Dr. Garima Pulliam Urea nitrogen/Creatinine [Mass ratio] 10.8 mg/mg Normal [facility] Comment on above: Performed By: #### C DAVID ####[facility] Jggtzohtsd0808 [place] [address]Dr. Garima Pulliam AMMONIAon 03-30-2023 Ammonia (P) [Moles/Vol] 11 umol/L Normal 11-32 [facility] Comment on above: Performed By: #### A MM ####[facility] Hixjhyakbe9[address] [place], [place] [address]Dr. Garima Pulliam CARDIAC NASH ADMITon 023 CK [Catalytic activity/Vol] 232 U/L Normal 39-308 [facility] Comment on above: Performed By: #### C NANCY HERNANDEZ ####[facility] Fztumdessj6673 [place] [address]Dr. Chapisrenu Pulliam CK.MB [Mass/Vol] 4.83 ng/mL Critically high <=3.60 [facility] Comment on above: Performed By: #### C NANCY HERNANDEZ ####[facility] Kqtqbpmxfp[address] [place], [place] [address]Dr. Garima Pulliam HSTROP 10.5 pg/mL Normal 4.0-76.1 [facility] Comment on above: Result Comment: CUT- OFF POINTS HAVE BEEN ESTABLISHED BASED ON THE FOURTH UNIVERSAL DEFINITIONS OF MYOCARDIALINFARCTION. THE UPPER REFERENCE LIMIT (URL) OF TROPONIN, DEFINED THE 99TH PERCENTILE OFcTnI DISTRIBUTION IN A REFERENCE POPULATION, HAS BEEN CONFIRMED THE DECISION THRESHOLDFOR [place] DIAGNOSIS. Performed By: #### C NANCY HERNANDEZ ####[facility] Obrfxvtktp[address] [place], [place] [address]Dr. Garima Heraclio DORIS 79 ng/mL Normal 16-96 [facility] Comment on above: Performed By: #### C NANCY HERNANDEZ ####[facility] Odmjfwheot[address] [place], [place] [address]Dr. Garima Heraclio CBC AUTO DIFFon 03-30-2023 BASO # 0.0 103/ul Normal 0.0-0.1 [facility] Comment on above: Performed By: #### C BC ####[facility] Rnxtrtdcjh9756 [place] [phone]. Garima Pulliam Basophils/100 WBC (Bld) 0.1 % Critically low 0.2-2.0 [facility] Comment on above: Performed By: #### C BC ####[facility] Errqidyqqy0318 [place] [phone]. Garima Pulliam EO # 0.3 103/ul Normal 0.0-0.7 [facility] Comment on above: Performed By: #### C BC ####[facility] G[address]wk[address] [place], [place] [address]Dr. Garima Pulliam Eosinophils/100 WBC (Bld) 3.3 % Normal 0.9-7.0 [facility] Comment on above: Performed By: #### C BC ####[facility] Hyrhvtexqn[address] [place], [place] [address]Dr. Garima Pulliam Erythrocyte distribution width (RBC) [Ratio] 13.5 % Normal 11.0-15.0 [facility] Comment on above: Performed By: #### C BC ####[facility] Ftvdlmmdrh[address] [place], [place] [address]Dr. Garima Pulliam Hematocrit (Bld) [Volume fraction] 42.9 % Normal 42.0-54.0 [facility] Comment on above: Performed By: #### C BC ####[facility] Dmyslummjj[address] [place], [place] [address]Dr. Garima Pulliam Hemoglobin (Bld) [Mass/Vol] 13.9 g/dL Critically low 14.0-18.0 [facility] Comment on above: Performed By: #### C BC ####[facility] Qatmbiojop1542 [place] [phone]. Garima Pulliam IG # 0.01 10e3/ul Normal 0.00-0.03 [facility] Comment on above: Performed By: #### C BC ####[facility] Sbzgiycsvx[address] [place], [place] [address]Dr. Garima Pulliam IG % 0.1 % Normal 0.0-0.5 [facility] Comment on above: Performed By: #### C BC ####[facility] [address]ibqnvjoda01[address] [place] [phone]. Garima Pulliam LYMPH # 1.7 103/ul Normal 1.2-3.8 [facility] Comment on above: Performed By: #### C BC ####[facility] Neuulqyxeu6020 [place], [place] [address]Wr. Garima Pulliam Lymphocytes/100 WBC (Bld) 22.8 % Normal 20.5-60.0 [facility] Comment on above: Performed By: #### C BC ####[facility] Ewekpotlgp8449 [place] [phone]. Garima Heraclio MANUAL DIFF REQ NO Normal [facility] Comment on above: Performed By: #### C BC ####[facility] Oktvaalrtl3193 [place] [phone]. Garima Heraclio MCH (RBC) [Entitic mass] 30.5 pg Normal 25.9-34.0 [facility] Comment on above: Performed By: #### C BC ####[facility] Glghzrcuur5972 [place] [phone]. Garima Pulliam MCHC (RBC) [Mass/Vol] 32.4 g/dL Normal 29.9-35.2 [facility] Comment on above: Performed By: #### C BC ####[facility] Ngvagbfusp6004 [place] [phone]. Garima Heraclio MCV (RBC) [Entitic vol] 94.1 fL Critically high 80.0-94.0 [facility] Comment on above: Performed By: #### C BC ####[facility] Qskwcfkcec1837 [place] [phone]. Garima Heracilo MONO # 0.7 103/ul Normal 0.3-0.8 [facility] Comment on above: Performed By: #### C BC ####[facility] Gswnbtiyjl5800 [place] [phone]. Garima Heraclio Monocytes/100 WBC (Bld) 8.6 % Normal 1.7-12.0 [facility] Comment on above: Performed By: #### C BC ####[facility] Hddtorzbsy4848 [place] [phone]. Garima Pulliam NEUT # 4.9 103/ul Normal 1.4-6.5 [facility] Comment on above: Performed By: #### C BC ####[facility] Nrxqxkvehs1350 [place] [phone]. Garima Pulliam Neutrophils/100 WBC (Bld) 65.1 % Normal 43.0-75.0 [facility] Comment on above: Performed By: #### C BC ####[facility] Ovvhhvwyqw9608 [place] [phone]. Garima Pulliam Platelet mean volume (Bld) [Entitic vol] 8.5 fL Critically low 9.5-13.5 [facility] Comment on above: Performed By: #### C BC ####[facility] Pbgbbqgnjb2243 [place] [phone]. Garima Pulliam PLT 219 103/ul Normal 150-450 [facility] Comment on above: Performed By: #### C BC ####[facility] Atejvqydii0216 [place] [phone]. Garima Pulliam RBC 4.56 106/ul Critically low 4.70-6.10 [facility] Comment on above: Performed By: #### C BC ####[facility] Kjrycwljou9942 [place] [phone]. Garima Pulliam WBC 7.6 103/ul Normal 4.0-11.0 [facility] Comment on above: Performed By: #### C BC ####[facility] Mllazhtxpy5030 [place] [phone]. Garima Pulliam LACTATE/LACTIC ACIDon 2022 Lactate [Moles/Vol] 1.2 mmol/L Normal 0.4-2.0 [facility] Comment on above: Performed By: #### L ACT ####[facility] Tqjfqxjalv1737 [place] [phone]. Garima Pulliam MAGNESIUMon 03-30-2023 Magnesium [Mass/Vol] 1.8 mg/dL Normal 1.8-2.4 [facility] Comment on above: Performed By: #### M G ####[facility] Aqtafjvaen6896 [place] [address]Dr. Garima Pulliam PROF 14(COMP METB)on 023 Albumin [Mass/Vol] 3.5 g/dL Normal 3.4-5.0 [facility] Comment on above: Performed By: #### C DAVID, CMAANA ROSA ####[facility] Llrqjpoese1135 [place] [address]Dr. Garima Pulliam Albumin/Globulin [Mass ratio] 1.2 {ratio} Normal [facility] Comment on above: Performed By: #### C DAVID, CMAANA ROSA ####[facility] Scmlhkjucc0951 [place] [address]Dr. Garima Pulliam ALP [Catalytic activity/Vol] 85 U/L Normal 46-116 [facility] Comment on above: Performed By: #### C DAVID, CMAANA ROSA ####[facility] Uqrezghbwl[address] [place], [place] [address]Dr. Garima Pulliam ALT [Catalytic activity/Vol] 29 U/L Normal 16-63 [facility] Comment on above: Performed By: #### C DAVID, CMAANA ROSA ####[facility] Yyfqsetupm5198 [place] [address]Dr. Gairma Pulliam Anion gap [Moles/Vol] 8.0 mmol/L Normal [facility] Comment on above: Performed By: #### C DAVID, CMAANA ROSA ####[facility] Gjfshhmhkg6661 [place] [address]Dr. Garima Pulliam AST [Catalytic activity/Vol] 18 U/L Normal 15-37 [facility] Comment on above: Performed By: #### C DAVID, CMADM ####[facility] Nxgokrdanb5114 [place] [address]Dr. Garima Pulliam Bilirubin [Mass/Vol] 0.4 mg/dL Normal 0.2-1.0 [facility] Comment on above: Performed By: #### C DAVID, CMADM ####[facility] Wdmxzlrcrt2135 [place] [address]Dr. Garima Pulliam Calcium [Mass/Vol] 8.8 mg/dL Normal 8.5-10.1 [facility] Comment on above: Performed By: #### C DAVID, NANCY ####[facility] Ceaxgvthvg6767 [place] [address]Dr. Chapisrenu Pulliam Chloride [Moles/Vol] 108 mmol/L Critically high 98-107 [facility] Comment on above: Performed By: #### C DAVID, NANCY ####[facility] Zwgwiwdfsb7953 [place] [address]Dr. Garima Pulliam CO2 [Moles/Vol] 29.6 mmol/L Normal 21.0-32.0 [facility] Comment on above: Performed By: #### C NANCY HERNANDEZ ####[facility] Lxqqyaroks[address] [place], [place] [address]Dr. Garima Pulliam Creatinine [Mass/Vol] 0.77 mg/dL Normal 0.70-1.30 [facility] Comment on above: Performed By: #### C NANCY HERNANDEZ ####[facility] Jyrjawyrho060[address] [place], [place] [address]Dr. Garima Heraclio EGFR-AF MACANESE >60 Normal >=60 [facility] Comment on above: Performed By: #### C NANCY HERNANDEZ ####[facility] Rmmxksfenx79[address] [place], [place] [address]Dr. Garima Heraclio EGFR-NON AF MACANESE >60 Normal >=60 [facility] Comment on above: Performed By: #### C NANCY HERNANDEZ ####[facility] Ssxohirlas3894 [place] [address]Dr. Garima Pulliam Globulin (S) [Mass/Vol] 2.8 g/dL Normal [facility] Comment on above: Performed By: #### C NANCY HERNANDEZ ####[facility] Wdpgwrfdre9777 [place] [address]Dr. Garima Pulliam Glucose [Mass/Vol] 207 mg/dL Critically high 74-106 [facility] Comment on above: Performed By: #### C NANCY HERNANDEZ ####[facility] Xbpdsfcatx[address] [place], [place] [address]Dr. Garima Pulliam Potassium [Moles/Vol] 4.6 mmol/L Normal 3.5-5.1 [facility] Comment on above: Performed By: #### C DAVID, NANCY ####[facility] Bwtmsydwde2228 [place] [address]Dr. Garima Pulliam Protein [Mass/Vol] 6.3 g/dL Critically low 6.4-8.2 [facility] Comment on above: Performed By: #### C DAVID, NANCY ####[facility] Idlznvkitz7203 [place] [address]Dr. Garima Pulliam Sodium [Moles/Vol] 141 mmol/L Normal 136-145 [facility] Comment on above: Performed By: #### C DAVID, NANCY ####[facility] Jcdjdoieek7545 [place] [address]Dr. Garima Pulliam Urea nitrogen [Mass/Vol] 9.0 mg/dL Normal 7.0-18.0 [facility] Comment on above: Performed By: #### C DAVID, NANCY ####[facility] Xnllvkgvue7519 [place] [address]Dr. Garima Pulliam Urea nitrogen/Creatinine [Mass ratio] 11.7 mg/mg Normal [facility] Comment on above: Performed By: #### C DAVID, NANCY ####[facility] Fnzbzwokfz2244 [place] [address]Dr. Garima Pulliam XR CHEST 1 Von 03-30-2023 XR CHEST 1 V Normal [facility] BNPon 03-27-2023 Natriuretic peptide B (Bld) [Mass/Vol] 251.0 pg/mL Normal <=900.0 [facility] Comment on above: Performed By: #### C MP, BNP, LIPID ####[facility] Tmuhpffoti9160 [place] [address]Dr. Garima Pulliam GLYCOHEMOGLOBIN A1Con 2022 ADA RECOMMENDATION SEE BELOW Normal [facility] Comment on above: Result Comment: ADA RECOMMENDED LIMIT 4.0 - 6.0 ADA THERAPEUTIC TARGET < 7.0 ACTION SUGGESTED > 7.0 Performed By: #### A 1C ####[facility] Xgknciciqi5084 [place] [address]Dr. Garima Pulliam Glucose [Mass/Vol] 180 mg/dL Normal [facility] Comment on above: Performed By: #### A 1C ####[facility] Obboqcnazm44[address] [place], [place] [address]Dr. Chapisrenu Pulliam HbA1c (Bld) [Mass fraction] 7.9 % Critically high 4.5-6.2 [facility] Comment on above: Performed By: #### A 1C ####[facility] Z[address]pebqjijb[address] [place], [place] [address]Dr. Garima Pulliam HEMOGRAM AND PLATELon 2022 Hematocrit (Bld) [Volume fraction] 45.7 % Normal 42.0-54.0 [facility] Comment on above: Performed By: #### H H ####[facility] Hbbcpqprap[address] [place], [place] [address]Dr. Garima Pulliam Hemoglobin (Bld) [Mass/Vol] 15.1 g/dL Normal 14.0-18.0 [facility] Comment on above: Performed By: #### H H ####[facility] Uqpsywfgyd[address] [place], [place] [address]Dr. Garima Pulliam MCH (RBC) [Entitic mass] 30.0 pg Normal 25.9-34.0 [facility] Comment on above: Performed By: #### H H ####[facility] Zidptfgpff4[address] [place], [place] [address]Dr. Garima Pulliam MCHC (RBC) [Mass/Vol] 33.0 g/dL Normal 29.9-35.2 [facility] Comment on above: Performed By: #### H H ####[facility] Kxlntfzqdm77[address] [place], [place] [address]Dr. Garima Pulliam MCV (RBC) [Entitic vol] 90.7 fL Normal 80.0-94.0 [facility] Comment on above: Performed By: #### H H ####[facility] Zbloictdzk[address] [place], [place] [address]Dr. Garima Pulliam PLT 222 103/ul Normal 150-450 [facility] Comment on above: Performed By: #### H H ####[facility] Vxfcrqtktd0575 [place] [id number]. Garima Pulliam RBC 5.04 106/ul Normal 4.70-6.10 [facility] Comment on above: Performed By: #### H H ####[facility] Bgjaqwebig4874 [place] [phone]. Garima Pulliam WBC 8.7 103/ul Normal 4.0-11.0 [facility] Comment on above: Performed By: #### H H ####[facility] Lziexzidig3251 [place] [id number]. Garima Pulliam LIPID PROFILEon 03-27-2023 CHOL-HDL RATIO NORM SEE BELOW Normal [facility] Comment on above: Result Comment: 3.3 - 4.4 LOW RISK 4.4 - 7.1 AVERAGE RISK 7.1 - 11.0 MODERATE RISK >11.0 HIGH RISK Performed By: #### C MP, BNP, LIPID ####[facility] Kzjeaykspe9783 [place] [address]Dr. Garima Pulliam Cholesterol [Mass/Vol] 113 mg/dL Normal <=200 [facility] Comment on above: Performed By: #### C MP, BNP, LIPID ####[facility] Gplntsqcen4553 [place] [address]Dr. Garima Pulliam Cholesterol in HDL [Mass/Vol] 51 mg/dL Normal 40-60 [facility] Comment on above: Performed By: #### C MP, BNP, LIPID ####[facility] Fbujuhtpte9393 [place] [address]Dr. Garima Pulliam Cholesterol in LDL [Mass/Vol] 49.8 mg/dL Normal [facility] Comment on above: Performed By: #### C MP, BNP, LIPID ####[facility] Pyhypoikzw4320 [place] [address]Dr. Garima Pulliam Cholesterol.total/Cho lesterol in HDL [Mass ratio] 2.2 {ratio} Normal [facility] Comment on above: Performed By: #### C MP, BNP, LIPID ####[facility] Ljfzwdvffx8943 [place] [address]Dr. Garima Pulliam HDL NORMAL > or = 60 mg/dl - LOW CARDIOVASCULAR RISK <40 mg/dl - HIGH CARDIOVASCULAR RISK Normal [facility] Comment on above: Performed By: #### C MP, BNP, LIPID ####[facility] Ujbxoodmrp9648 [place] [address]Dr. Garima Pulliam LDL CALC NORMAL SEE BELOW Normal [facility] Comment on above: Result Comment: <100 mg/dl OPTIMAL 100 - 129 mg/dl NEAR OR ABOVE OPTIMAL 130 - 159 mg/dl BORDERLINE HIGH 160 - 189 mg/dl HIGH >190 mg/dl VERY HIGH Performed By: #### C MP, BNP, LIPID ####[facility] Hjknrwzygj4591 [place] [address]Dr. Garima Pulliam Triglyceride [Mass/Vol] 61 mg/dL Normal <=150 [facility] Comment on above: Performed By: #### C MP, BNP, LIPID ####[facility] Yxymovlipk9650 [place] [address]Dr. Garima Pulliam VLDL CALC 12.2 mg/dL Normal [facility] Comment on above: Performed By: #### C MP, BNP, LIPID ####[facility] Wccwecafap3712 [place] [address]Dr. Garima Pulliam PROF 14(COMP METB)on 023 Albumin [Mass/Vol] 3.5 g/dL Normal 3.4-5.0 [facility] Comment on above: Performed By: #### C MP, BNP, LIPID ####[facility] [address]svyg[address] [place] [address]Dr. Garima Pulliam Albumin/Globulin [Mass ratio] 1.2 {ratio} Normal [facility] Comment on above: Performed By: #### C MP, BNP, LIPID ####[facility] Vejyvwzhqo65[address] [place] [address]Dr. Garima Pulliam ALP [Catalytic activity/Vol] 82 U/L Normal 46-116 [facility] Comment on above: Performed By: #### C MP, BNP, LIPID ####[facility] Flhvnqhlnl26[address] [place] [address]Dr. Garima Pulliam ALT [Catalytic activity/Vol] 33 U/L Normal 16-63 [facility] Comment on above: Performed By: #### C MP, BNP, LIPID ####[facility] Ottfzdeetv05[address] [place] [address]Dr. Garima Pulliam Anion gap [Moles/Vol] 9.9 mmol/L Normal [facility] Comment on above: Performed By: #### C MP, BNP, LIPID ####[facility] Llkxuoucqs8890 [place] [address]Dr. Garima Pulliam AST [Catalytic activity/Vol] 24 U/L Normal 15-37 [facility] Comment on above: Performed By: #### C MP, BNP, LIPID ####[facility] Hojjxvpmet5[address] [place] [address]Dr. Garima Pulliam Bilirubin [Mass/Vol] 0.6 mg/dL Normal 0.2-1.0 [facility] Comment on above: Performed By: #### C MP, BNP, LIPID ####[facility] Qdcimhpvkz1162 [place] [address]Dr. Garima Pulliam Calcium [Mass/Vol] 9.2 mg/dL Normal 8.5-10.1 [facility] Comment on above: Performed By: #### C MP, BNP, LIPID ####[facility] Sprcufybjq30[address] [place] [address]Dr. Garima Pulliam Chloride [Moles/Vol] 106 mmol/L Normal 98-107 [facility] Comment on above: Performed By: #### C MP, BNP, LIPID ####[facility] Oifyeiuzhu1374 [place] [address]Dr. Garima Pulliam CO2 [Moles/Vol] 32.3 mmol/L Critically high 21.0-32.0 [facility] Comment on above: Performed By: #### C MP, BNP, LIPID ####[facility] Mitdstfszd0594 [place] [address]Dr. Garima Pulliam Creatinine [Mass/Vol] 0.70 mg/dL Normal 0.70-1.30 [facility] Comment on above: Performed By: #### C MP, BNP, LIPID ####[facility] Iatnusmkip[address] [place] [id number]. Garima Pulliam EGFR-AF MACANESE >60 Normal >=60 [facility] Comment on above: Performed By: #### C MP, BNP, LIPID ####[facility] Sglscrjzjx022[address] [place] [id number]. Garima Pulliam EGFR-NON AF MACANESE >60 Normal >=60 [facility] Comment on above: Performed By: #### C MP, BNP, LIPID ####[facility] Xgitwieyub6796 [place] [address]Dr. Garima Pulliam Globulin (S) [Mass/Vol] 2.9 g/dL Normal [facility] Comment on above: Performed By: #### C MP, BNP, LIPID ####[facility] Xnmikgoclx1892 [place] [address]Dr. Garima Pulliam Glucose [Mass/Vol] 111 mg/dL Critically high 74-106 [facility] Comment on above: Performed By: #### C MP, BNP, LIPID ####[facility] Zigmjqgwzz1612 [place] [address]Dr. Garima Pulliam Potassium [Moles/Vol] 4.2 mmol/L Normal 3.5-5.1 [facility] Comment on above: Performed By: #### C MP, BNP, LIPID ####[facility] Ijsemantcp0104 [place] [address]Dr. Garima Pulliam Protein [Mass/Vol] 6.4 g/dL Normal 6.4-8.2 [facility] Comment on above: Performed By: #### C MP, BNP, LIPID ####[facility] Ybzjfcbuax7176 [place] [address]Dr. Garima Pulliam Sodium [Moles/Vol] 144 mmol/L Normal 136-145 [facility] Comment on above: Performed By: #### C MP, BNP, LIPID ####[facility] Bvuydydsug0802 [place] [address]Dr. Garima Pulliam Urea nitrogen [Mass/Vol] 7.0 mg/dL Normal 7.0-18.0 [facility] Comment on above: Performed By: #### C MP, BNP, LIPID ####[facility] Igreibyfva637[address] [place], [place] [address]Dr. Garima Pulliam Urea nitrogen/Creatinine [Mass ratio] 10.0 mg/mg Normal [facility] Comment on above: Performed By: #### C MP, BNP, LIPID ####[facility] Lfcgkucfht99[address] [place], [place] [address]Dr. Garima Pulliam BNPon 03-22-2023 Natriuretic peptide B (Bld) [Mass/Vol] 103.0 pg/mL Normal <=900.0 [facility] Comment on above: Performed By: #### B TECHNICAL SYSTEM ANALYST, BMP ####[facility] Apjwrctifc4936[address] [place], [place] [address]Dr. Garima Pulliam CBC AUTO DIFFon 03-22-2023 BASO # 0.0 103/ul Normal 0.0-0.1 [facility] Comment on above: Performed By: #### C BC ####[facility] Xlnjkwftwv9[address] [place], [place] [address]Dr. Garima Heraclio Basophils/100 WBC (Bld) 0.3 % Normal 0.2-2.0 [facility] Comment on above: Performed By: #### C BC ####[facility] Wgpysxftwl2120[address] [place], [place] [address]Dr. Garima Pulliam EO # 0.2 103/ul Normal 0.0-0.7 [facility] Comment on above: Performed By: #### C BC ####[facility] Hgejrlgyzv0[address] [place], [place] [address]Dr. Garima Pulliam Eosinophils/100 WBC (Bld) 2.2 % Normal 0.9-7.0 [facility] Comment on above: Performed By: #### C BC ####[facility] Tfflugjayp4[address] [place], [place] [address]Dr. Garima Pulliam Erythrocyte distribution width (RBC) [Ratio] 13.2 % Normal 11.0-15.0 [facility] Comment on above: Performed By: #### C BC ####[facility] Oxofmglqjv8471 [place] [id number]. Garima Pulliam Hematocrit (Bld) [Volume fraction] 43.4 % Normal 42.0-54.0 [facility] Comment on above: Performed By: #### C BC ####[facility] Paeoptwems5048 [place] [address]Dr. Garima Heraclio Hemoglobin (Bld) [Mass/Vol] 14.3 g/dL Normal 14.0-18.0 [facility] Comment on above: Performed By: #### C BC ####[facility] Brlbhqkxoq3669 [place] [address]Dr. Garima Pulliam IG # 0.02 10e3/ul Normal 0.00-0.03 [facility] Comment on above: Performed By: #### C BC ####[facility] Uiyvhvizzl0766 [place] [address]Dr. Garima Pulliam IG % 0.3 % Normal 0.0-0.5 [facility] Comment on above: Performed By: #### C BC ####[facility] Qurmhphzzg5750 [place] [address]Dr. Chapisrenu Pulliam LYMPH # 2.0 103/ul Normal 1.2-3.8 [facility] Comment on above: Performed By: #### C BC ####[facility] Mhonbgsvzz7544 [place] [address]Dr. Chapisrenu Pulliam Lymphocytes/100 WBC (Bld) 24.8 % Normal 20.5-60.0 [facility] Comment on above: Performed By: #### C BC ####[facility] Lndbaxxcdw14[address] [place] [address]Dr. Chapisrenu Pulliam MANUAL DIFF REQ NO Normal [facility] Comment on above: Performed By: #### C BC ####[facility] Djogatnzmf8810 [place] [address]Dr. Garima Heraclio MCH (RBC) [Entitic mass] 30.0 pg Normal 25.9-34.0 [facility] Comment on above: Performed By: #### C BC ####[facility] Weedhkijhk[address] [place], [place] [address]Dr. Garima Pulliam MCHC (RBC) [Mass/Vol] 32.9 g/dL Normal 29.9-35.2 [facility] Comment on above: Performed By: #### C BC ####[facility] Ffgehmqtuv8239 [place] [id number]. Garima Pulliam MCV (RBC) [Entitic vol] 91.0 fL Normal 80.0-94.0 [facility] Comment on above: Performed By: #### C BC ####[facility] Njaymejcoj5934 [place] [phone]. Garima Heraclio MONO # 0.8 103/ul Normal 0.3-0.8 [facility] Comment on above: Performed By: #### C BC ####[facility] Ggserijzvk2874 [place] [address]Dr. Chapisrenu Pulliam Monocytes/100 WBC (Bld) 9.7 % Normal 1.7-12.0 [facility] Comment on above: Performed By: #### C BC ####[facility] Wkiqlsvied1460 [place] [address]Dr. Garima Pulliam NEUT # 4.9 103/ul Normal 1.4-6.5 [facility] Comment on above: Performed By: #### C BC ####[facility] Qzaejbfbpd6401 [place] [id number]. Garima Heraclio Neutrophils/100 WBC (Bld) 62.7 % Normal 43.0-75.0 [facility] Comment on above: Performed By: #### C BC ####[facility] Stprqbcijh6781 [place] [phone]. Garima Heraclio Platelet mean volume (Bld) [Entitic vol] 8.8 fL Critically low 9.5-13.5 [facility] Comment on above: Performed By: #### C BC ####[facility] Ow[address]jfvpsz[address] [place] [id number]. Garima Heraclio PLT 198 103/ul Normal 150-450 [facility] Comment on above: Performed By: #### C BC ####[facility] Wucscimotc9[address] [place] [phone]. Garima Heraclio RBC 4.77 106/ul Normal 4.70-6.10 [facility] Comment on above: Performed By: #### C BC ####[facility] Roifwmxsnt3525 [place] [phone]. Garima Heraclio WBC 7.9 103/ul Normal 4.0-11.0 [facility] Comment on above: Performed By: #### C BC ####[facility] Esbkuhgckt94[address] [place] [id number]. Gariam Heraclio D-DIMERon 03-22-2023 D-DIMER 0.85 mg/L FEU Critically high <=0.59 [facility] Comment on above: Performed By: #### D DIM ####[facility] Qdztowidor4752 [place] [address]Dr. Garima Pulliam D-DIMER COMMENTS SEE BELOW Normal [facility] Comment on above: Result Comment: Incr [...] Performed By: #### D DIM ####[facility] Mrtjhmeasl[address] [place], [place] [address]Dr. Garima Pulliam PROF CHEM 8 (BAS METB)on Anion gap [Moles/Vol] 6.9 mmol/L Normal [facility] Comment on above: Performed By: #### B TECHNICAL SYSTEM ANALYST, BMP ####[facility] Dlmomglhso9755 [place] [address]Dr. Garima Pulliam Calcium [Mass/Vol] 8.9 mg/dL Normal 8.5-10.1 [facility] Comment on above: Performed By: #### B TECHNICAL SYSTEM ANALYST, BMP ####[facility] Vehrjjqavf3369 [place] [address]Dr. Garima Pulliam Chloride [Moles/Vol] 101 mmol/L Normal 98-107 [facility] Comment on above: Performed By: #### B TECHNICAL SYSTEM ANALYST, BMP ####[facility] Urnaxrymhv5539[address] [place], [place] [address]Dr. Chapisrenu Heraclio CO2 [Moles/Vol] 30.7 mmol/L Normal 21.0-32.0 [facility] Comment on above: Performed By: #### B TECHNICAL SYSTEM ANALYST, BMP ####[facility] Hclyzowymh37[address] [place], [place] [address]Dr. Garima Pulliam Creatinine [Mass/Vol] 0.82 mg/dL Normal 0.70-1.30 [facility] Comment on above: Performed By: #### B TECHNICAL SYSTEM ANALYST, BMP ####[facility] Nzmjqmrtch17[address] [place], [place] [address]Dr. Garima Pulliam EGFR-AF MACANESE >60 Normal >=60 [facility] Comment on above: Performed By: #### B TECHNICAL SYSTEM ANALYST, BMP ####[facility] Trukkktunl044[address] [place], [place] [address]Dr. Chapisrenu Heraclio EGFR-NON AF MACANESE >60 Normal >=60 [facility] Comment on above: Performed By: #### B TECHNICAL SYSTEM ANALYST, BMP ####[facility] Wrlayhijsx5444[address] [place], [place] [address]Dr. Garima Pulliam Glucose [Mass/Vol] 339 mg/dL Critically high 74-106 [facility] Comment on above: Performed By: #### B TECHNICAL SYSTEM ANALYST, BMP ####[facility] Lfcuisncga382867 [address] [place], [place] [address]Dr. Garima Pulliam Potassium [Moles/Vol] 3.6 mmol/L Normal 3.5-5.1 [facility] Comment on above: Performed By: #### B TECHNICAL SYSTEM ANALYST, BMP ####[facility] Qenylulnfo5449[address] [place], [place] [address]Dr. Garima Pulliam Sodium [Moles/Vol] 135 mmol/L Critically low 136-145 [facility] Comment on above: Performed By: #### B TECHNICAL SYSTEM ANALYST, BMP ####[facility] Apnrbqoqbp3[address] [place], [place] [address]Dr. Garima Pulliam Urea nitrogen [Mass/Vol] 11.0 mg/dL Normal 7.0-18.0 [facility] Comment on above: Performed By: #### B TECHNICAL SYSTEM ANALYST, BMP ####[facility] Ihvfjfpgmd7[address] [place], [place] [address]Dr. Garima Pulliam Urea nitrogen/Creatinine [Mass ratio] 13.4 mg/mg Normal [facility] Comment on above: Performed By: #### B TECHNICAL SYSTEM ANALYST, BMP ####[facility] Secbipijgg6596[address] [place], [place] [address]Dr. Garima Pulilam US VERONICA DOP LEG BILon 023 US VERONICA DOP LEG BENOIT Normal [facility] BNPon 03-18-2023 Natriuretic peptide B (Bld) [Mass/Vol] 226.0 pg/mL Normal <=900.0 [facility] Comment on above: Performed By: #### B TECHNICAL SYSTEM ANALYST, BMP ####[facility] Klfpcxbezj8175[address] [place], [place] [address]Dr. Garima Pulliam CBC AUTO DIFFon 03-18-2023 BASO # 0.0 103/ul Normal 0.0-0.1 [facility] Comment on above: Performed By: #### C BC ####[facility] Ksxwkddtcr1244[address] [place], [place] [address]Dr. Garima Heraclio Basophils/100 WBC (Bld) 0.2 % Normal 0.2-2.0 [facility] Comment on above: Performed By: #### C BC ####[facility] Rxvkvkmfnh031167 [address] [place], [place] [address]Dr. Garima Pulliam EO # 0.3 103/ul Normal 0.0-0.7 [facility] Comment on above: Performed By: #### C BC ####[facility] Qpgtsiwarn407067 [address] [place], [place] [address]Dr. Garima Heraclio Eosinophils/100 WBC (Bld) 2.5 % Normal 0.9-7.0 [facility] Comment on above: Performed By: #### C BC ####[facility] Mjllaazrzu68[address] [place], [place] [address]Dr. Garima Heraclio Erythrocyte distribution width (RBC) [Ratio] 13.2 % Normal 11.0-15.0 [facility] Comment on above: Performed By: #### C BC ####[facility] Pmmngdbtlb4123 [place] [address]DrAdalberto Pulliam Hematocrit (Bld) [Volume fraction] 45.8 % Normal 42.0-54.0 [facility] Comment on above: Performed By: #### C BC ####[facility] Xvpixmbdwu7104 [place] [address]DrAdalberto Pulliam Hemoglobin (Bld) [Mass/Vol] 15.3 g/dL Normal 14.0-18.0 [facility] Comment on above: Performed By: #### C BC ####[facility] Etgjwffwyb3467[address] [place], [place] [address]DrAdalberto Pulliam IG # 0.02 10e3/ul Normal 0.00-0.03 [facility] Comment on above: Performed By: #### C BC ####[facility] Wkwykkfttc2544[address] [place], [place] [address]DrAdalberto Pulliam IG % 0.2 % Normal 0.0-0.5 [facility] Comment on above: Performed By: #### C BC ####[facility] Sxxskgqpqt644[address] [place], [place] [address]DrAdalberto Pulliam LYMPH # 1.8 103/ul Normal 1.2-3.8 [facility] Comment on above: Performed By: #### C BC ####[facility] Rnflsxazhs9255[address] [place], [place] [address]DrAdalberto Pulliam Lymphocytes/100 WBC (Bld) 18.3 % Critically low 20.5-60.0 [facility] Comment on above: Performed By: #### C BC ####[facility] Zhilovagib8[address] [place], [place] [address]DrAdalberto Pulliam MANUAL DIFF REQ NO Normal [facility] Comment on above: Performed By: #### C BC ####[facility] Iqhhbvpjti4146 [place] [address]DrAdalberto Pulliam MCH (RBC) [Entitic mass] 30.5 pg Normal 25.9-34.0 [facility] Comment on above: Performed By: #### C BC ####[facility] Coycndypmy1317 [place] [address]DrAdalberto Pulliam MCHC (RBC) [Mass/Vol] 33.4 g/dL Normal 29.9-35.2 [facility] Comment on above: Performed By: #### C BC ####[facility] Hhblbqwvkc8066 [place] [address]DrAdalberto Pulliam MCV (RBC) [Entitic vol] 91.2 fL Normal 80.0-94.0 [facility] Comment on above: Performed By: #### C BC ####[facility] Hvxgdvyiyu8215[address] [place], [place] [address]DrAdalberto Pulliam MONO # 0.8 103/ul Normal 0.3-0.8 [facility] Comment on above: Performed By: #### C BC ####[facility] Rfawupkmyc[address] [place], [place] [address]DrAdalberto Pulliam Monocytes/100 WBC (Bld) 7.6 % Normal 1.7-12.0 [facility] Comment on above: Performed By: #### C BC ####[facility] Brvupjjuki640967 [address] [place], [place] [address]DrAdalberto Pulliam NEUT # 7.0 103/ul Critically high 1.4-6.5 [facility] Comment on above: Performed By: #### C BC ####[facility] Imudiaricz049[address] [place], [place] [address]DrAdalberto Pulliam Neutrophils/100 WBC (Bld) 71.2 % Normal 43.0-75.0 [facility] Comment on above: Performed By: #### C BC ####[facility] Oshgtkjjqg9620[address] [place], [place] [address]DrAdalberto Pulliam Platelet mean volume (Bld) [Entitic vol] 8.9 fL Critically low 9.5-13.5 [facility] Comment on above: Performed By: #### C BC ####[facility] Tovlwrdcmu85[address] [place], [place] [address]DrAdalberto Pulliam PLT 217 103/ul Normal 150-450 [facility] Comment on above: Performed By: #### C BC ####[facility] Oagahxgnid3223 [place] [address]Dr. Graima Heraclio RBC 5.02 106/ul Normal 4.70-6.10 [facility] Comment on above: Performed By: #### C BC ####[facility] Mznojihclk997[address] [place], [place] [address]Dr. Garima Pulliam WBC 9.8 103/ul Normal 4.0-11.0 [facility] Comment on above: Performed By: #### C BC ####[facility] Vsyfvaqwex8359[address] [place], [place] [address]Dr. aGrima Heraclio CRPon 03-18-2023 CRP 0.1 mg/dL Normal <=1.0 [facility] Comment on above: Performed By: #### C RP ####[facility] Ubiivrsvzr3098[address] [place], [place] [address]Dr. Garima Heraclio PROF CHEM 8 (BAS METB)on Anion gap [Moles/Vol] 10.4 mmol/L Normal [facility] Comment on above: Performed By: #### B TECHNICAL SYSTEM ANALYST, BMP ####[facility] Owdktsrfmq67[address] [place], [place] [address]Dr. Garima Heraclio Calcium [Mass/Vol] 8.8 mg/dL Normal 8.5-10.1 [facility] Comment on above: Performed By: #### B TECHNICAL SYSTEM ANALYST, BMP ####[facility] Ecqjkbugsh876[address] [place], [place] [address]Dr. Garima Heraclio Chloride [Moles/Vol] 97 mmol/L Critically low 98-107 [facility] Comment on above: Performed By: #### B TECHNICAL SYSTEM ANALYST, BMP ####[facility] Sqmwdtipwq44[address] [place], [place] [address]Dr. Garima Pulliam CO2 [Moles/Vol] 31.2 mmol/L Normal 21.0-32.0 [facility] Comment on above: Performed By: #### B TECHNICAL SYSTEM ANALYST, BMP ####[facility] Qbrxjpwutx2665[address] [place], [place] [address]Dr. Garima Pulliam Creatinine [Mass/Vol] 0.91 mg/dL Normal 0.70-1.30 [facility] Comment on above: Performed By: #### B TECHNICAL SYSTEM ANALYST, BMP ####[facility] Yovmztbcbt3384 [place] [address]Dr. Garima Pulliam EGFR-AF MACANESE >60 Normal >=60 [facility] Comment on above: Performed By: #### B TECHNICAL SYSTEM ANALYST, BMP ####[facility] Lqpdrefzvf4545 [place] [id number]. Garima Pulliam EGFR-NON AF MACANESE >60 Normal >=60 [facility] Comment on above: Performed By: #### B TECHNICAL SYSTEM ANALYST, BMP ####[facility] Pmwrgkoojw5972 [place] [address]Dr. Garima Pulliam Glucose [Mass/Vol] 315 mg/dL Critically high 74-106 T [facility] Comment on above: Performed By: #### B TECHNICAL SYSTEM ANALYST, BMP ####[facility] Wijyvpkaio5352 [place] [address]Dr. Garima Pulliam Potassium [Moles/Vol] 3.6 mmol/L Normal 3.5-5.1 [facility] Comment on above: Performed By: #### B TECHNICAL SYSTEM ANALYST, BMP ####[facility] Jgrwhpiump8220 [place] [address]Dr. Garima Pulliam Sodium [Moles/Vol] 135 mmol/L Critically low 136-145 Th [facility] Comment on above: Performed By: #### B TECHNICAL SYSTEM ANALYST, BMP ####[facility] Xmahehapbt3537 [place] [address]Dr. Garima Pulliam Urea nitrogen [Mass/Vol] 7.0 mg/dL Normal 7.0-18.0 [facility] Comment on above: Performed By: #### B TECHNICAL SYSTEM ANALYST, BMP ####[facility] Glehmvklop9472 [place] [address]Dr. Garima Pulliam Urea nitrogen/Creatinine [Mass ratio] 7.7 mg/mg Normal [facility] Comment on above: Performed By: #### B TECHNICAL SYSTEM ANALYST, BMP ####[facility] Utyoxzytcb7278 [place] [address]Dr. Garima Pulliam SED RATE WESTERGRENon 2022 SED RATE 8 mm/hr Normal <=20 [facility] Comment on above: Performed By: #### S EDR ####[facility] Wzgvbqvuub6[address] [place], [place] [address]Dr. Garima Pulliam BNPon 03-16-2023 Natriuretic peptide B (Bld) [Mass/Vol] 241.0 pg/mL Normal <=900.0 [facility] Comment on above: Performed By: #### B TECHNICAL SYSTEM ANALYST, BMP, HSTROPN ####[facility] Ffohxwxtdc746[address] [place], [place] [address]Dr. Garima Heraclio CBC AUTO DIFFon 03-16-2023 BASO # 0.0 103/ul Normal 0.0-0.1 [facility] Comment on above: Performed By: #### C BC ####[facility] Pygtqmhqyl332[address] [place], [place] [address]Dr. Chapisrenu Pulliam Basophils/100 WBC (Bld) 0.2 % Normal 0.2-2.0 [facility] Comment on above: Performed By: #### C BC ####[facility] Lqoorkzjqo75[address] [place], [place] [address]Dr. Garima Pulliam EO # 0.2 103/ul Normal 0.0-0.7 [facility] Comment on above: Performed By: #### C BC ####[facility] Dcocopuyyo6466[address] [place], [place] [address]Dr. Chapisrenu Pulliam Eosinophils/100 WBC (Bld) 2.7 % Normal 0.9-7.0 [facility] Comment on above: Performed By: #### C BC ####[facility] Yjmacbvmcn8326[address] [place], [place] [address]Dr. Garima Pulliam Erythrocyte distribution width (RBC) [Ratio] 13.1 % Normal 11.0-15.0 [facility] Comment on above: Performed By: #### C BC ####[facility] Gghedcemnk655[address] [place], [place] [address]Dr. Garima Pulliam Hematocrit (Bld) [Volume fraction] 41.8 % Critically low 42.0-54.0 [facility] Comment on above: Performed By: #### C BC ####[facility] Fdkhewxkdr6080 [place] [address]Dr. Garima Pulliam Hemoglobin (Bld) [Mass/Vol] 14.0 g/dL Normal 14.0-18.0 [facility] Comment on above: Performed By: #### C BC ####[facility] Wppacrahgr7272 [place] [address]Dr. Garima Pulliam IG # 0.03 10e3/ul Normal 0.00-0.03 [facility] Comment on above: Performed By: #### C BC ####[facility] Gccuitgtck1097 [place] [address]Dr. Garima Pulliam IG % 0.3 % Normal 0.0-0.5 [facility] Comment on above: Performed By: #### C BC ####[facility] Xctzsmytlv79[address] [place], [place] [address]Dr. Chapisrenu Pulliam LYMPH # 2.1 103/ul Normal 1.2-3.8 [facility] Comment on above: Performed By: #### C BC ####[facility] Lgxdzyppvl39[address] [place], [place] [address]Dr. Chapisrenu Pulliam Lymphocytes/100 WBC (Bld) 24.2 % Normal 20.5-60.0 [facility] Comment on above: Performed By: #### C BC ####[facility] Tcyfefejzz3374 [place] [address]Dr. Garima Pulliam MANUAL DIFF REQ NO Normal [facility] Comment on above: Performed By: #### C BC ####[facility] Igdcslzaef6138 [place] [address]Dr. Garima Pulliam MCH (RBC) [Entitic mass] 30.2 pg Normal 25.9-34.0 [facility] Comment on above: Performed By: #### C BC ####[facility] Qaruwihdsi0494 [place] [address]Dr. Garima Pulliam MCHC (RBC) [Mass/Vol] 33.5 g/dL Normal 29.9-35.2 [facility] Comment on above: Performed By: #### C BC ####[facility] Qyqrzigoaz1537 [place] [id number]. Garima Pulliam MCV (RBC) [Entitic vol] 90.1 fL Normal 80.0-94.0 [facility] Comment on above: Performed By: #### C BC ####[facility] Uuqoabhmgf4794 [place] [id number]. Garima Pulliam MONO # 0.6 103/ul Normal 0.3-0.8 [facility] Comment on above: Performed By: #### C BC ####[facility] Atewntgxxn6668 [place] [address]Dr. Garima Heraclio Monocytes/100 WBC (Bld) 7.4 % Normal 1.7-12.0 [facility] Comment on above: Performed By: #### C BC ####[facility] Qlfdqgwkyz[address] [place], [place] [address]Dr. Garima Pulliam NEUT # 5.6 103/ul Normal 1.4-6.5 [facility] Comment on above: Performed By: #### C BC ####[facility] Iyedgejaeg69[address] [place], [place] [address]Dr. Garima Heraclio Neutrophils/100 WBC (Bld) 65.2 % Normal 43.0-75.0 [facility] Comment on above: Performed By: #### C BC ####[facility] Bhdfapqqwn8452 [place] [id number]. Garima Heraclio Platelet mean volume (Bld) [Entitic vol] 8.7 fL Critically low 9.5-13.5 [facility] Comment on above: Performed By: #### C BC ####[facility] [address] [place], [place] [id number]. Garima Heraclio PLT 195 103/ul Normal 150-450 [facility] Comment on above: Performed By: #### C BC ####[facility] [address]cvk[address] [place] [id number]. Garima Pulliam RBC 4.64 106/ul Critically low 4.70-6.10 The [facility] Comment on above: Performed By: #### C BC ####[facility] [address]ont[address] [place] [address]Dr. Garima Pulliam WBC 8.6 103/ul Normal 4.0-11.0 [facility] Comment on above: Performed By: #### C BC ####[facility] Diohseviin[address] [place] [address]Dr. Garima Pulliam PROF CHEM 8 (BAS METB)on Anion gap [Moles/Vol] 6.7 mmol/L Normal [facility] Comment on above: Performed By: #### B TECHNICAL SYSTEM ANALYST, BMP, HSTROPN ####[facility] Hryzvbbwlt[address] [place] [address]Dr. Garima Pulliam Calcium [Mass/Vol] 8.8 mg/dL Normal 8.5-10.1 [facility] Comment on above: Performed By: #### B TECHNICAL SYSTEM ANALYST, BMP, HSTROPN ####[facility] [address]sytzdeqtb[address] [place], [place] [address]Dr. Garima Pulliam Chloride [Moles/Vol] 106 mmol/L Normal 98-107 [facility] Comment on above: Performed By: #### B TECHNICAL SYSTEM ANALYST, BMP, HSTROPN ####[facility] Uxgbncmkkf[address] [place], [place] [address]Dr. Garima Pulliam CO2 [Moles/Vol] 31.4 mmol/L Normal 21.0-32.0 The [facility] Comment on above: Performed By: #### B TECHNICAL SYSTEM ANALYST, BMP, HSTROPN ####[facility] [address]jolomcssu[address] [place], [place] [address]Dr. Garima Pulliam Creatinine [Mass/Vol] 0.75 mg/dL Normal 0.70-1.30 [facility] Comment on above: Performed By: #### B TECHNICAL SYSTEM ANALYST, BMP, HSTROPN ####[facility] Lwdxhccsbo[address] [place] [address]Dr. Garima Pulliam EGFR-AF MACANESE >60 Normal >=60 The [facility] Comment on above: Performed By: #### B TECHNICAL SYSTEM ANALYST, BMP, HSTROPN ####[facility] Jrcwjfijud8[address] [place] [address]Dr. Garima Pulliam EGFR-NON AF MACANESE >60 Normal >=60 [facility] Comment on above: Performed By: #### B TECHNICAL SYSTEM ANALYST, BMP, HSTROPN ####[facility] Gbhywhxtnt[address] [place] [address]Dr. Garima Pulliam Glucose [Mass/Vol] 161 mg/dL Critically high 74-106 [facility] Comment on above: Performed By: #### B TECHNICAL SYSTEM ANALYST, BMP, HSTROPN ####[facility] Uxrxayhumz6052 [place] [address]Dr. Garima Pulliam Potassium [Moles/Vol] 4.1 mmol/L Normal 3.5-5.1 [facility] Comment on above: Performed By: #### B TECHNICAL SYSTEM ANALYST, BMP, HSTROPN ####[facility] Rjajeugwvj38[address] [place] [address]Dr. Garima Pulliam Sodium [Moles/Vol] 140 mmol/L Normal 136-145 [facility] Comment on above: Performed By: #### B TECHNICAL SYSTEM ANALYST, BMP, HSTROPN ####[facility] Fuqjsmrqkk53[address] [place] [address]Dr. Garima Pulliam Urea nitrogen [Mass/Vol] 7.0 mg/dL Normal 7.0-18.0 [facility] Comment on above: Performed By: #### B TECHNICAL SYSTEM ANALYST, BMP, HSTROPN ####[facility] Drppgxggyz7921 [place] [address]Dr. Garima Pulliam Urea nitrogen/Creatinine [Mass ratio] 9.3 mg/mg Normal [facility] Comment on above: Performed By: #### B TECHNICAL SYSTEM ANALYST, BMP, HSTROPN ####[facility] Spdnmlvtbn77[address] [place] [address]Dr. Garima Pulliam TROPONIN, HIGH SENSITIVITYon 03-16-2023 HSTROP 9.7 pg/mL Normal 4.0-76.1 [facility] Comment on above: Result Comment: CUT- OFF POINTS HAVE BEEN ESTABLISHED BASED ON THE FOURTH UNIVERSAL DEFINITIONS OF MYOCARDIALINFARCTION. THE UPPER REFERENCE LIMIT (URL) OF TROPONIN, DEFINED THE 99TH PERCENTILE OFcTnI DISTRIBUTION IN A REFERENCE POPULATION, HAS BEEN CONFIRMED THE DECISION THRESHOLDFOR [place] DIAGNOSIS. Performed By: #### B TECHNICAL SYSTEM ANALYST, BMP, HSTROPN ####[facility] Dgodtqxijw8[address] [place] [address]Dr. Garima Pulliam XR CHEST 1 Von 03-16-2023 XR CHEST 1 V Normal [facility] BNPon 03-06-2023 Natriuretic peptide B (Bld) [Mass/Vol] 111.0 pg/mL Normal <=900.0 [facility] Comment on above: Performed By: #### C MP, BNP, CK ####[facility] Lzrmqwmyqs78[address] [place] [address]Dr. Chapisrenu Pulliam CBC AUTO DIFFon 03-06-2023 BASO # 0.0 103/ul Normal 0.0-0.1 [facility] Comment on above: Performed By: #### C BC ####[facility] B[address]fdlryyf[address] [place], [place] [address]Dr. Garima Pulliam Basophils/100 WBC (Bld) 0.2 % Normal 0.2-2.0 [facility] Comment on above: Performed By: #### C BC ####[facility] Xnlkrajvpo24[address] [place], [place] [address]Dr. Garima Pulliam EO # 0.3 103/ul Normal 0.0-0.7 [facility] Comment on above: Performed By: #### C BC ####[facility] Xsicmyldas25[address] [place], [place] [address]Dr. Garima Pulliam Eosinophils/100 WBC (Bld) 3.5 % Normal 0.9-7.0 [facility] Comment on above: Performed By: #### C BC ####[facility] Rfdctxpmes4[address] [place], [place] [address]Dr. Garima Pulliam Erythrocyte distribution width (RBC) [Ratio] 13.3 % Normal 11.0-15.0 [facility] Comment on above: Performed By: #### C BC ####[facility] Gmhlohgvvj17[address] [place], [place] [address]Dr. Garima Pulliam Hematocrit (Bld) [Volume fraction] 43.7 % Normal 42.0-54.0 [facility] Comment on above: Performed By: #### C BC ####[facility] Wcdjormnbu0710 [place] [address]Dr. Garima Pulliam Hemoglobin (Bld) [Mass/Vol] 14.7 g/dL Normal 14.0-18.0 [facility] Comment on above: Performed By: #### C BC ####[facility] Gwuedmugas08[address] [place] [address]Dr. Chapisrenu Heraclio IG # 0.03 10e3/ul Normal 0.00-0.03 [facility] Comment on above: Performed By: #### C BC ####[facility] Cxlckvkxtx[address] [place], [place] [address]Dr. Garima Pulliam IG % 0.4 % Normal 0.0-0.5 [facility] Comment on above: Performed By: #### C BC ####[facility] Extybwuorw[address] [place], [place] [address]Dr. Garima Pulliam LYMPH # 2.0 103/ul Normal 1.2-3.8 [facility] Comment on above: Performed By: #### C BC ####[facility] Ikjbcinmef63[address] [place], [place] [address]DrAdalberto Pulliam Lymphocytes/100 WBC (Bld) 23.7 % Normal 20.5-60.0 [facility] Comment on above: Performed By: #### C BC ####[facility] Lsruzlnqwt8138 [place] [address]Dr. Garima Pulliam MANUAL DIFF REQ NO Normal [facility] Comment on above: Performed By: #### C BC ####[facility] Tgcqbkvops1269 [place] [id number] Pulliam MCH (RBC) [Entitic mass] 30.1 pg Normal 25.9-34.0 [facility] Comment on above: Performed By: #### C BC ####[facility] Kuzqwzambm80[address] [place] [phone]. Garima Pulliam MCHC (RBC) [Mass/Vol] 33.6 g/dL Normal 29.9-35.2 [facility] Comment on above: Performed By: #### C BC ####[facility] Zlylawzrgd5031 [place] [address]Dr. Garima Hercalio MCV (RBC) [Entitic vol] 89.4 fL Normal 80.0-94.0 [facility] Comment on above: Performed By: #### C BC ####[facility] Jotjbrwejf0335 [place] [address]Dr. Garima Pulliam MONO # 0.8 103/ul Normal 0.3-0.8 [facility] Comment on above: Performed By: #### C BC ####[facility] Zfchictnrb3948 [place] [address]Dr. Garima Pulliam Monocytes/100 WBC (Bld) 9.0 % Normal 1.7-12.0 [facility] Comment on above: Performed By: #### C BC ####[facility] Hzueiqxgju[address] [place], [place] [address]Dr. Garima Pulliam NEUT # 5.4 103/ul Normal 1.4-6.5 [facility] Comment on above: Performed By: #### C BC ####[facility] Xixjhnuvdk3[address] [place], [place] [address]Dr. Garima Pulliam Neutrophils/100 WBC (Bld) 63.2 % Normal 43.0-75.0 [facility] Comment on above: Performed By: #### C BC ####[facility] Iysdbrxjtp[address] [place], [place] [address]Dr. Garima Pulliam Platelet mean volume (Bld) [Entitic vol] 9.0 fL Critically low 9.5-13.5 [facility] Comment on above: Performed By: #### C BC ####[facility] Fsmpzitlst[address] [place], [place] [address]Dr. Garima Pulliam PLT 218 103/ul Normal 150-450 [facility] Comment on above: Performed By: #### C BC ####[facility] Pfwzemphmp4708 [place] [phone]. Garima Pulliam RBC 4.89 106/ul Normal 4.70-6.10 [facility] Comment on above: Performed By: #### C BC ####[facility] Toqiprlvif1098 [place] [address]Dr. Garima Pulliam WBC 8.5 103/ul Normal 4.0-11.0 [facility] Comment on above: Performed By: #### C BC ####[facility] Qzmpdpuvuq7255 [place] [address]Dr. Garima Pulliam CPKon 03-06-2023 CK [Catalytic activity/Vol] 191 U/L Normal 39-308 [facility] Comment on above: Performed By: #### C MP, BNP, CK ####[facility] Girfdhrcov7520 [place] [address]Dr. Garima Pulliam PROF 14(COMP METB)on 023 Albumin [Mass/Vol] 3.6 g/dL Normal 3.4-5.0 [facility] Comment on above: Performed By: #### C MP, BNP, CK ####[facility] Pdnlfrulkz5535 [place] [address]Dr. Garima Pulliam Albumin/Globulin [Mass ratio] 1.2 {ratio} Normal [facility] Comment on above: Performed By: #### C MP, BNP, CK ####[facility] Gjfurxcsyk2858 [place] [address]Dr. Garima Pulliam ALP [Catalytic activity/Vol] 91 U/L Normal 46-116 [facility] Comment on above: Performed By: #### C MP, BNP, CK ####[facility] Cxsrefaenu0823 [place] [address]Dr. Garima Pulliam ALT [Catalytic activity/Vol] 33 U/L Normal 16-63 [facility] Comment on above: Performed By: #### C MP, BNP, CK ####[facility] Aatfmgfrmd2250 [place] [address]Dr. Garima Pulliam Anion gap [Moles/Vol] 10.3 mmol/L Normal [facility] Comment on above: Performed By: #### C MP, BNP, CK ####[facility] Ihdobmvlnj5334 [place] [address]Dr. Garima Pulliam AST [Catalytic activity/Vol] 17 U/L Normal 15-37 [facility] Comment on above: Performed By: #### C MP, BNP, CK ####[facility] Mswfzqcjla3987 [place] [address]Dr. Garima Pulliam Bilirubin [Mass/Vol] 0.4 mg/dL Normal 0.2-1.0 [facility] Comment on above: Performed By: #### C MP, BNP, CK ####[facility] Uepyjxqjax0842 [place] [address]Dr. Garima Pulliam Calcium [Mass/Vol] 9.1 mg/dL Normal 8.5-10.1 The [facility] Comment on above: Performed By: #### C MP, BNP, CK ####[facility] Odtybrkpfv6786 [place] [address]Dr. Garima Pulliam Chloride [Moles/Vol] 102 mmol/L Normal 98-107 [facility] Comment on above: Performed By: #### C MP, BNP, CK ####[facility] Jgbqhmqpjd3267 [place] [address]Dr. Garima Pulliam CO2 [Moles/Vol] 29.7 mmol/L Normal 21.0-32.0 [facility] Comment on above: Performed By: #### C MP, BNP, CK ####[facility] Imjdlzqhwm1498 [place] [address]Dr. Garima Pulliam Creatinine [Mass/Vol] 0.79 mg/dL Normal 0.70-1.30 [facility] Comment on above: Performed By: #### C MP, BNP, CK ####[facility] Wudrhuyrdm0259 [place] [address]Dr. Garima Pulliam EGFR-AF MACANESE >60 Normal >=60 [facility] Comment on above: Performed By: #### C MP, BNP, CK ####[facility] Yosgadabda2922 [place] [address]Dr. Garima Pulliam EGFR-NON AF MACANESE >60 Normal >=60 [facility] Comment on above: Performed By: #### C MP, BNP, CK ####[facility] Kbwndowcvm2533 [place] [address]Dr. Garima Pulliam Globulin (S) [Mass/Vol] 3.0 g/dL Normal [facility] Comment on above: Performed By: #### C MP, BNP, CK ####[facility] Tojkxwpgbf8784 [place] [address]Dr. Garima Pulliam Glucose [Mass/Vol] 202 mg/dL Critically high 74-106 [facility] Comment on above: Performed By: #### C MP, BNP, CK ####[facility] Wulroeapaz0868 [place] [address]Dr. Garima Pulliam Potassium [Moles/Vol] 4.0 mmol/L Normal 3.5-5.1 [facility] Comment on above: Performed By: #### C MP, BNP, CK ####[facility] Zpffqjrrtk7589 [place] [address]Dr. Garima Pulliam Protein [Mass/Vol] 6.6 g/dL Normal 6.4-8.2 [facility] Comment on above: Performed By: #### C MP, BNP, CK ####[facility] Bvxpabqfwo[address] [place], [place] [address]Dr. Garima Pulliam Sodium [Moles/Vol] 138 mmol/L Normal 136-145 [facility] Comment on above: Performed By: #### C MP, BNP, CK ####[facility] Zvrhcmzfli132[address] [place], [place] [address]Dr. Garima Pulliam Urea nitrogen [Mass/Vol] 10.0 mg/dL Normal 7.0-18.0 [facility] Comment on above: Performed By: #### C MP, BNP, CK ####[facility] Dkxxskcntp6935 [place] [address]Dr. Garima Pulliam Urea nitrogen/Creatinine [Mass ratio] 12.7 mg/mg Normal [facility] Comment on above: Performed By: #### C MP, BNP, CK ####[facility] Vpwtyocunw0382 [place] [address]Dr. Garima Pulliam US VERONICA DOP LEG BILon 023 US VERONICA DOP LEG BENOIT Normal The [facility] CBC AUTO DIFFon 01-13-2023 BASO # 0.0 103/ul Normal 0.0-0.1 [facility] Comment on above: Performed By: #### C BC ####[facility] Ioksirgspp2537 [place] [id number]. Chapisrenu Pulliam Basophils/100 WBC (Bld) 0.0 % Critically low 0.2-2.0 [facility] Comment on above: Performed By: #### C BC ####[facility] Mvreiwaetp9292 [place] [address]Dr. Garima Pulliam EO # 0.0 103/ul Normal 0.0-0.7 [facility] Comment on above: Performed By: #### C BC ####[facility] Kpdfkokbja[address] [place], [place] [address]Dr. Garima Pulliam Eosinophils/100 WBC (Bld) 0.0 % Critically low 0.9-7.0 [facility] Comment on above: Performed By: #### C BC ####[facility] Pilprklfwb3403 [place] [address]Dr. Garima Pulliam Erythrocyte distribution width (RBC) [Ratio] 13.2 % Normal 11.0-15.0 [facility] Comment on above: Performed By: #### C BC ####[facility] Kvqbihvkya[address] [place], [place] [address]Dr. Garima Pulliam Hematocrit (Bld) [Volume fraction] 46.7 % Normal 42.0-54.0 [facility] Comment on above: Performed By: #### C BC ####[facility] Vervokqpyt39[address] [place], [place] [address]Dr. Garima Pulliam Hemoglobin (Bld) [Mass/Vol] 15.6 g/dL Normal 14.0-18.0 [facility] Comment on above: Performed By: #### C BC ####[facility] Lzvdturlha657[address] [place], [place] [address]Dr. Garima Pulliam IG # 0.01 10e3/ul Normal 0.00-0.03 [facility] Comment on above: Performed By: #### C BC ####[facility] Xdpaogszkn1774 [place] [id number]. Garima Pulliam IG % 0.2 % Normal 0.0-0.5 [facility] Comment on above: Performed By: #### C BC ####[facility] Yjnogxmzmq7246 [place] [id number]. Garima Pulliam LYMPH # 0.8 103/ul Critically low 1.2-3.8 [facility] Comment on above: Performed By: #### C BC ####[facility] Erlaobscby7970 [place] [phone]. Garima Pulliam Lymphocytes/100 WBC (Bld) 12.7 % Critically low 20.5-60.0 [facility] Comment on above: Performed By: #### C BC ####[facility] Bwvqnnfpzw4977 [place] [address]Dr. Garima Pulliam MANUAL DIFF REQ NO Normal [facility] Comment on above: Performed By: #### C BC ####[facility] Kvduwprbdl6751 [place] [phone]. Garima Pulliam MCH (RBC) [Entitic mass] 30.2 pg Normal 25.9-34.0 [facility] Comment on above: Performed By: #### C BC ####[facility] Gmotpdqapg6302 [place] [id number]. Garima Pulliam MCHC (RBC) [Mass/Vol] 33.4 g/dL Normal 29.9-35.2 [facility] Comment on above: Performed By: #### C BC ####[facility] Liunlrfetf2619 [place] [phone]. Garima Pulliam MCV (RBC) [Entitic vol] 90.3 fL Normal 80.0-94.0 [facility] Comment on above: Performed By: #### C BC ####[facility] Yvvqtwwkug0129 [place] [id number]. Garima Heraclio MONO # 0.1 103/ul Critically low 0.3-0.8 The [facility] Comment on above: Performed By: #### C BC ####[facility] Lbwmoqxokm2644 [place] [phone]. Garima Pulliam Monocytes/100 WBC (Bld) 0.9 % Critically low 1.7-12.0 [facility] Comment on above: Performed By: #### C BC ####[facility] Qlpqkushbd9587 [place] [id number]. Garima Pulliam NEUT # 5.6 103/ul Normal 1.4-6.5 [facility] Comment on above: Performed By: #### C BC ####[facility] Fcdwmqwqyj5122 [place] [phone]. Garima Pulliam Neutrophils/100 WBC (Bld) 86.2 % Critically high 43.0-75.0 [facility] Comment on above: Performed By: #### C BC ####[facility] Expxulerqr6037 [place] [address]Dr. Garima Pulliam Platelet mean volume (Bld) [Entitic vol] 9.1 fL Critically low 9.5-13.5 [facility] Comment on above: Performed By: #### C BC ####[facility] Kuaswlybsu4[address] [place], [place] [address]Dr. Garima Pulliam PLT 169 103/ul Normal 150-450 [facility] Comment on above: Performed By: #### C BC ####[facility] Nnxvqvryem36[address] [place], [place] [address]Dr. Garima Pulliam RBC 5.17 106/ul Normal 4.70-6.10 [facility] Comment on above: Performed By: #### C BC ####[facility] Krftzobwab94[address] [place], [place] [address]Dr. Garima Pulliam WBC 6.5 103/ul Normal 4.0-11.0 [facility] Comment on above: Performed By: #### C BC ####[facility] Dmoifdcbso4[address] [place], [place] [address]Dr. Garima Pulliam D-DIMERon 01-13-2023 D-DIMER 0.41 mg/L FEU Normal <=0.[address] [facility] Comment on above: Performed By: #### D DIM ####[facility] Jvccnstlel2168 [place] [address]Dr. Garima Pulliam D-DIMER COMMENTS SEE BELOW Normal [...] Performed By: #### D DIM ####[facility] Xmspexfbux573[address] [place], [place] [address]Dr. Garima Pulliam PROF 14(COMP METB)on 023 Albumin [Mass/Vol] 3.4 g/dL Normal 3.4-5.0 [facility] Comment on above: Performed By: #### C MP ####[facility] Aoqofdobkz333[address] [place], [place] [address]Dr. Garima Pulliam Albumin/Globulin [Mass ratio] 1.3 {ratio} Normal [facility] Comment on above: Performed By: #### C MP ####[facility] Dcbolfvzho436[address] [place], [place] [address]Dr. Garima Pulliam ALP [Catalytic activity/Vol] 83 U/L Normal 46-116 [facility] Comment on above: Performed By: #### C MP ####[facility] Hyufjovwve7960[address] [place], [place] [address]Dr. Garima Pulliam ALT [Catalytic activity/Vol] 25 U/L Normal 16-63 [facility] Comment on above: Performed By: #### C MP ####[facility] Mhceshkrlz1012 [place] [address]Dr. Garima Pulliam Anion gap [Moles/Vol] 14.5 mmol/L Normal [facility] Comment on above: Performed By: #### C MP ####[facility] Xaadnchrgw6[address] [place], [place] [address]Dr. Garima Pulliam AST [Catalytic activity/Vol] 19 U/L Normal 15-37 [facility] Comment on above: Performed By: #### C MP ####[facility] Wytlyqwmvp05[address] [place], [place] [address]Dr. Garima Pulliam Bilirubin [Mass/Vol] 0.4 mg/dL Normal 0.2-1.0 [facility] Comment on above: Performed By: #### C MP ####[facility] Tikzvbxwun3[address] [place], [place] [address]Dr. Garima Pulliam Calcium [Mass/Vol] 8.7 mg/dL Normal 8.5-10.1 [facility] Comment on above: Performed By: #### C MP ####[facility] Asuqkzzeza309[address] [place], [place] [address]Dr. Garima Pulliam Chloride [Moles/Vol] 104 mmol/L Normal 98-107 [facility] Comment on above: Performed By: #### C MP ####[facility] Ltogbehxpe20[address] [place], [place] [address]Dr. Garima Pulliam CO2 [Moles/Vol] 24.5 mmol/L Normal 21.0-32.0 [facility] Comment on above: Performed By: #### C MP ####[facility] Nboewrcebc9[address] [place], [place] [address]Dr. Garima Pulliam Creatinine [Mass/Vol] 0.70 mg/dL Normal 0.70-1.30 [facility] Comment on above: Performed By: #### C MP ####[facility] Yordxwlqym[address] [place], [place] [address]Dr. Garima Heraclio EGFR-AF MACANESE >60 Normal >=60 [facility] Comment on above: Performed By: #### C MP ####[facility] Jrrkszeqxx75[address] [place], [place] [address]Dr. hCapisrenu Heraclio EGFR-NON AF MACANESE >60 Normal >=60 [facility] Comment on above: Performed By: #### C MP ####[facility] Uanmmstgoo8587[address] [place], [place] [address]Dr. Chapisrenu Pulliam Globulin (S) [Mass/Vol] 2.6 g/dL Normal [facility] Comment on above: Performed By: #### C MP ####[facility] Dzmqhmxuuf7594 [place] [address]Dr. Garima Pulliam Glucose [Mass/Vol] 196 mg/dL Critically high 74-106 [facility] Comment on above: Performed By: #### C MP ####[facility] Bvphkimcht5054 [place] [address]Dr. Garima Pulliam Potassium [Moles/Vol] 4.0 mmol/L Normal 3.5-5.1 [facility] Comment on above: Performed By: #### C MP ####[facility] Qxkzkwjjip9303 [place] [address]Dr. Garima Pulliam Protein [Mass/Vol] 6.0 g/dL Critically low 6.4-8.2 [facility] Comment on above: Performed By: #### C MP ####[facility] Hrovrwwbmh[address] [place], [place] [address]Dr. Garima Pulliam Sodium [Moles/Vol] 139 mmol/L Normal 136-145 [facility] Comment on above: Performed By: #### C MP ####[facility] Wcbqpynmuw11[address] [place], [place] [address]Dr. Garima Pulliam Urea nitrogen [Mass/Vol] 7.0 mg/dL Normal 7.0-18.0 [facility] Comment on above: Performed By: #### C MP ####[facility] Bnwrhidvok35[address] [place], [place] [address]Dr. Garima Heraclio Urea nitrogen/Creatinine [Mass ratio] 10.0 mg/mg Normal [facility] Comment on above: Performed By: #### C MP ####[facility] Hucsjpadnb45[address] [place], [place] [address]Dr. Garima Heraclio BNPon 01-12-2023 Natriuretic peptide B (Bld) [Mass/Vol] 141.0 pg/mL Normal <=900.0 [facility] Comment on above: Performed By: #### C MP, BNP, HSTROPN ####[facility] Vpqlozrcsr594[address] [place], [place] [address]Dr. Garima Heraclio CBC AUTO DIFFon 01-12-2023 BASO # 0.0 103/ul Normal 0.0-0.1 [facility] Comment on above: Performed By: #### C BC ####[facility] Bitrqsajbd9373 [place] [id number]. Garima Heraclio Basophils/100 WBC (Bld) 0.2 % Normal 0.2-2.0 [facility] Comment on above: Performed By: #### C BC ####[facility] Kcrbibgqus5108 [place] [address]Dr. Garima Heraclio EO # 0.2 103/ul Normal 0.0-0.7 [facility] Comment on above: Performed By: #### C BC ####[facility] Gvijubvrav7406 [place] [address]Dr. Garima Heraclio Eosinophils/100 WBC (Bld) 2.7 % Normal 0.9-7.0 [facility] Comment on above: Performed By: #### C BC ####[facility] Exckapbxnd357[address] [place], [place] [address]Dr. Garima Pulliam Erythrocyte distribution width (RBC) [Ratio] 13.3 % Normal 11.0-15.0 [facility] Comment on above: Performed By: #### C BC ####[facility] Vbibvyneva7[address] [place], [place] [address]Dr. Garima Pulliam Hematocrit (Bld) [Volume fraction] 42.3 % Normal 42.0-54.0 [facility] Comment on above: Performed By: #### C BC ####[facility] Vyhtczjqzt[address] [place], [place] [address]Dr. Garima Pulliam Hemoglobin (Bld) [Mass/Vol] 14.3 g/dL Normal 14.0-18.0 [facility] Comment on above: Performed By: #### C BC ####[facility] Ldumncwcip33[address] [place], [place] [address]Dr. Garima Pulliam IG # 0.02 10e3/ul Normal 0.00-0.03 [facility] Comment on above: Performed By: #### C BC ####[facility] Pflgwaagju4854 [place] [id number]. Garima Pulliam IG % 0.2 % Normal 0.0-0.5 [facility] Comment on above: Performed By: #### C BC ####[facility] [address]putoita[address] [place] [id number]. Garima Pulliam LYMPH # 2.6 103/ul Normal 1.2-3.8 [facility] Comment on above: Performed By: #### C BC ####[facility] Jzwhwxkmbg0408 [place] [phone]. Garima Heraclio Lymphocytes/100 WBC (Bld) 29.6 % Normal 20.5-60.0 [facility] Comment on above: Performed By: #### C BC ####[facility] [address]htuokzxmp65[address] [place] [address]Dr. Garima Heraclio MANUAL DIFF REQ NO Normal [facility] Comment on above: Performed By: #### C BC ####[facility] Zsjpihednp2846 [place] [phone]. Garima Pulliam MCH (RBC) [Entitic mass] 30.2 pg Normal 25.9-34.0 [facility] Comment on above: Performed By: #### C BC ####[facility] Lnyrpzyjom85[address] [place] [address]Dr. Garima Pulliam MCHC (RBC) [Mass/Vol] 33.8 g/dL Normal 29.9-35.2 [facility] Comment on above: Performed By: #### C BC ####[facility] Wrdxpjqfug3838 [place] [phone]. Garima Pulliam MCV (RBC) [Entitic vol] 89.2 fL Normal 80.0-94.0 [facility] Comment on above: Performed By: #### C BC ####[facility] Ndkuyuwjeb[address] [place], [place] [address]Dr. Chapisrenu Pulliam MONO # 0.7 103/ul Normal 0.3-0.8 [facility] Comment on above: Performed By: #### C BC ####[facility] Ygatvmbjqu1554 [place] [phone]. Garima Pulliam Monocytes/100 WBC (Bld) 8.3 % Normal 1.7-12.0 [facility] Comment on above: Performed By: #### C BC ####[facility] Gpnkrzbpsz6218 [place] [phone]. Garima Pulliam NEUT # 5.1 103/ul Normal 1.4-6.5 [facility] Comment on above: Performed By: #### C BC ####[facility] Oyxxjgpysk2699 [place] [phone]. Garima Pulliam Neutrophils/100 WBC (Bld) 59.0 % Normal 43.0-75.0 [facility] Comment on above: Performed By: #### C BC ####[facility] Wfdflybzxt1361 [place] [address]Dr. Garima Pulliam Platelet mean volume (Bld) [Entitic vol] 8.7 fL Critically low 9.5-13.5 [facility] Comment on above: Performed By: #### C BC ####[facility] Pvjxkfyqxu1785 [place] [address]Dr. Garima Pulliam PLT 182 103/ul Normal 150-450 [facility] Comment on above: Performed By: #### C BC ####[facility] Ibezifjwtr5966 [place] [phone]. Garima Pulliam RBC 4.74 106/ul Normal 4.70-6.10 [facility] Comment on above: Performed By: #### C BC ####[facility] Aozkndgrpc[address] [place], [place] [id number]. Garima Pulliam WBC 8.7 103/ul Normal 4.0-11.0 [facility] Comment on above: Performed By: #### C BC ####[facility] Qodsgpoxvj[address] [place], [place] [address]Dr. Garima Pulliam Covid-19 PCR (CVDTB)on 12-25 SARS-CoV-2 (COVID-19) RNA MARIE+probe Ql (Unsp spec) Not detected Normal NOT DETECTED [facility] Comment on above: Result Comment: When diagnostic [...] for this test is supported by the [place] of Health and Human Service's declaration that [...] Performed By: #### C VDTBH ####[facility] Lhacgxnifv2[address] [place] [address]Dr. Garima Pulliam PROF 14(COMP METB)on 023 Albumin [Mass/Vol] 3.6 g/dL Normal 3.4-5.0 [facility] Comment on above: Performed By: #### C MP, BNP, HSTROPN ####[facility] Cegzclawgh27[address] [place] [address]Dr. Garima Pulliam Albumin/Globulin [Mass ratio] 1.5 {ratio} Normal [facility] Comment on above: Performed By: #### C MP, BNP, HSTROPN ####[facility] Tyhqfvwwpo4607 [place] [address]Dr. Garima Pulliam ALP [Catalytic activity/Vol] 79 U/L Normal 46-116 [facility] Comment on above: Performed By: #### C MP, BNP, HSTROPN ####[facility] Zfixtdkllu9526 [place] [address]Dr. Garima Pulliam ALT [Catalytic activity/Vol] 27 U/L Normal 16-63 [facility] Comment on above: Performed By: #### C MP, BNP, HSTROPN ####[facility] Rupdlrqokw4574 [place] [address]Dr. Garima Pulliam Anion gap [Moles/Vol] 11.7 mmol/L Normal Th [facility] Comment on above: Performed By: #### C MP, BNP, HSTROPN ####[facility] Orxhzpytww1283 [place] [address]Dr. Garima Pulliam AST [Catalytic activity/Vol] 21 U/L Normal 15-37 [facility] Comment on above: Performed By: #### C MP, BNP, HSTROPN ####[facility] Tchrksmixm4927 [place] [address]Dr. Garima Pulliam Bilirubin [Mass/Vol] 0.3 mg/dL Normal 0.2-1.0 [facility] Comment on above: Performed By: #### C MP, BNP, HSTROPN ####[facility] Bowuwmeynt8850 [place] [address]Dr. Garima Pulliam Calcium [Mass/Vol] 8.9 mg/dL Normal 8.5-10.1 [facility] Comment on above: Performed By: #### C MP, BNP, HSTROPN ####[facility] Aqdxraniow7016 [place] [address]Dr. Garima Pulliam Chloride [Moles/Vol] 107 mmol/L Normal 98-107 [facility] Comment on above: Performed By: #### C MP, BNP, HSTROPN ####[facility] Jbbbxijceu1702 [place] [address]Dr. Garima Pulliam CO2 [Moles/Vol] 26.0 mmol/L Normal 21.0-32.0 The [facility] Comment on above: Performed By: #### C MP, BNP, HSTROPN ####[facility] Aoipvzglce6979 [place] [address]Dr. Garima Pulliam Creatinine [Mass/Vol] 0.65 mg/dL Critically low 0.70-1.30 [facility] Comment on above: Performed By: #### C MP, BNP, HSTROPN ####[facility] Wzejlvftbc9543 [place] [address]Dr. Yilan Pulliam EGFR-AF MACANESE >60 Normal >=60 [facility] Comment on above: Performed By: #### C MP, BNP, HSTROPN ####[facility] Gbiyqwbgnu2919 [place] [address]Dr. Garima Pulliam EGFR-NON AF MACANESE >60 Normal >=60 [facility] Comment on above: Performed By: #### C MP, BNP, HSTROPN ####[facility] Cossfqidsb6941 [place] [address]Dr. Garima Pulliam Globulin (S) [Mass/Vol] 2.4 g/dL Normal [facility] Comment on above: Performed By: #### C MP, BNP, HSTROPN ####[facility] Qjwvxdulfl[address] [place], [place] [address]Dr. Garima Pulliam Glucose [Mass/Vol] 85 mg/dL Normal 74-106 [facility] Comment on above: Performed By: #### C MP, BNP, HSTROPN ####[facility] Akwziopitn6409 [place] [address]Dr. Garima Pulliam Potassium [Moles/Vol] 3.7 mmol/L Normal 3.5-5.1 [facility] Comment on above: Performed By: #### C MP, BNP, HSTROPN ####[facility] Kmmfovxdrk9127 [place] [address]Dr. Garima Pulliam Protein [Mass/Vol] 6.0 g/dL Critically low 6.4-8.2 [facility] Comment on above: Performed By: #### C MP, BNP, HSTROPN ####[facility] Lxxpiwpyfr9620 [place] [address]Dr. Garima Pulliam Sodium [Moles/Vol] 141 mmol/L Normal 136-145 The [facility] Comment on above: Performed By: #### C MP, BNP, HSTROPN ####[facility] Axudrjqoxl7472 [place] [address]Dr. Garima Pulliam Urea nitrogen [Mass/Vol] 5.0 mg/dL Critically low 7.0-18.0 [facility] Comment on above: Performed By: #### C MP, BNP, HSTROPN ####[facility] Hxikikqome4027 [place] [address]Dr. Garima Pulliam Urea nitrogen/Creatinine [Mass ratio] 7.7 mg/mg Normal [facility] Comment on above: Performed By: #### C MP, BNP, HSTROPN ####[facility] Oeucdjzmve7459 [place] [address]Dr. Garima Pulliam PROTIMEon 01-12-2023 INR Coag (PPP) [Relative time] 1.16 {INR} Normal [facility] Comment on above: Performed By: #### P TT, PT ####[facility] Xnxrazhhjb7487 [place] [address]Dr. Garima Pulliam INR GUIDELINES SEE BELOW Normal The [facility] Comment on above: Result Comment: WESLEY RED INR: 2.0 - 3.0 CONDITIONS NOT LISTED BELOW 2.5 - 3.5 FOR PROSTHETIC HEART VALVE REPLACEMENT 2.5 - 3.5 RECURRENT THROMBOSIS Performed By: #### P TT, PT ####[facility] Skkgmleatm[address] [place], [place] [address]Dr. Garima Pulliam PT Coag (PPP) [Time] 12.2 s Critically high 9.0-11.6 [facility] Comment on above: Performed By: #### P TT, PT ####[facility] Yrvdhrunho1307 [place] [address]Dr. Garima Pulliam PTTon 01-12-2023 aPTT Coag (Bld) [Time] 29.1 s Normal 22.3-36.2 [facility] Comment on above: Performed By: #### P TT, PT ####[facility] Htnbtsydjg[address] [place], [place] [address]Dr. Garima Pulliam TROPONIN, HIGH SENSITIVITYon 01-12-2023 HSTROP 10.3 pg/mL Normal 4.0-76.1 [facility] Comment on above: Result Comment: CUT- OFF POINTS HAVE BEEN ESTABLISHED BASED ON THE FOURTH UNIVERSAL DEFINITIONS OF MYOCARDIALINFARCTION. THE UPPER REFERENCE LIMIT (URL) OF TROPONIN, DEFINED THE 99TH PERCENTILE OFcTnI DISTRIBUTION IN A REFERENCE POPULATION, HAS BEEN CONFIRMED THE DECISION THRESHOLDFOR [place] DIAGNOSIS. Performed By: #### H STROPN ####[facility] Hngyjkbbhe6511 [place] [address]Dr. Garima Pulliam HSTROP 9.2 pg/mL Normal 4.0-76.1 [facility] Comment on above: Result Comment: CUT- OFF POINTS HAVE BEEN ESTABLISHED BASED ON THE FOURTH UNIVERSAL DEFINITIONS OF MYOCARDIALINFARCTION. THE UPPER REFERENCE LIMIT (URL) OF TROPONIN, DEFINED THE 99TH PERCENTILE OFcTnI DISTRIBUTION IN A REFERENCE POPULATION, HAS BEEN CONFIRMED THE DECISION THRESHOLDFOR [place] DIAGNOSIS. Performed By: #### C MP, BNP, HSTROPN ####[facility] Byckerbufn1043 [place] [address]Dr. Garima Pulliam XR CHEST 1 Von 01-12-2023 XR CHEST 1 V Normal [facility] XR CHEST 1 Von 01-01-2023 XR CHEST 1 V Normal [facility] CARDIAC NASH 3-6on 3 CK [Catalytic activity/Vol] 196 U/L Normal 39-308 [facility] Comment on above: Performed By: #### C MREP ####[facility] Kofmwyvwqk25[address] [place] [address]Dr. Garima Pulliam CK.MB [Mass/Vol] 7.41 ng/mL Critically high <=3.60 [facility] Comment on above: Performed By: #### C MREP ####[facility] Hctqmghtak9816 [place] [address]Dr. Garima Pulliam HSTROP 10.3 pg/mL Normal 4.0-76.1 [facility] Comment on above: Result Comment: CUT- OFF POINTS HAVE BEEN ESTABLISHED BASED ON THE FOURTH UNIVERSAL DEFINITIONS OF MYOCARDIALINFARCTION. THE UPPER REFERENCE LIMIT (URL) OF TROPONIN, DEFINED THE 99TH PERCENTILE OFcTnI DISTRIBUTION IN A REFERENCE POPULATION, HAS BEEN CONFIRMED THE DECISION THRESHOLDFOR [place] DIAGNOSIS. Performed By: #### C MREP ####[facility] Ofxgndcuxw2022 [place] [id number]. Garima Pulliam XR CHEST 1 Von 12-26-2022 XR CHEST 1 V Normal [facility] BNPon 12-25-2022 Natriuretic peptide B (Bld) [Mass/Vol] 98.0 pg/mL Normal <=900.0 [facility] Comment on above: Performed By: #### B MARVIN FRENCH CMADM ####[facility] Mrramnuakb5936 [place] [address]Dr. Garima Pulliam CARDIAC NASH ADMITon 023 CK [Catalytic activity/Vol] 208 U/L Normal 39-308 [facility] Comment on above: Performed By: #### B MARVIN FRENCH CMADM ####[facility] Bqgqjxmnjo3629 [place] [address]Dr. Garima Pulliam CK.MB [Mass/Vol] 7.63 ng/mL Critically high <=3.60 [facility] Comment on above: Performed By: #### B MARVIN FRECNH CMADM ####[facility] Rqyjkbooir[address] [place], [place] [address]Dr. Garima Pulliam HSTROP 8.8 pg/mL Normal 4.0-76.1 [facility] Comment on above: Result Comment: CUT- OFF POINTS HAVE BEEN ESTABLISHED BASED ON THE FOURTH UNIVERSAL DEFINITIONS OF MYOCARDIALINFARCTION. THE UPPER REFERENCE LIMIT (URL) OF TROPONIN, DEFINED THE 99TH PERCENTILE OFcTnI DISTRIBUTION IN A REFERENCE POPULATION, HAS BEEN CONFIRMED THE DECISION THRESHOLDFOR [place] DIAGNOSIS. Performed By: #### B MARVIN FRENCH CMADM ####[facility] Dvfnsytjbp[address] [place], [place] [address]Dr. Garima Pulliam DORIS 83 ng/mL Normal 16-96 [facility] Comment on above: Performed By: #### B MARVIN FRENCH CMADM ####[facility] Younswcmxs[address] [place], [place] [address]Dr. Garima Pulliam CBC AUTO DIFFon 12-25-2022 BASO # 0.0 103/ul Normal 0.0-0.1 [facility] Comment on above: Performed By: #### C BC ####[facility] Lupfnekmbj4[address] [place], [place] [address]Dr. Garima Pulliam Basophils/100 WBC (Bld) 0.0 % Critically low 0.2-2.0 [facility] Comment on above: Performed By: #### C BC ####[facility] Rfutbbdhml3373 [place] [address]Dr. Garima Pulliam EO # 0.0 103/ul Normal 0.0-0.7 [facility] Comment on above: Performed By: #### C BC ####[facility] Dpfkxhxtoj10[address] [place], [place] [address]Dr. Garima Pulliam Eosinophils/100 WBC (Bld) 0.7 % Critically low 0.9-7.0 [facility] Comment on above: Performed By: #### C BC ####[facility] Cormpuusjm9[address] [place], [place] [address]Dr. Garima Pulliam Erythrocyte distribution width (RBC) [Ratio] 13.4 % Normal 11.0-15.0 [facility] Comment on above: Performed By: #### C BC ####[facility] Jmkupgcmrc53[address] [place], [place] [address]Dr. Garima Pulliam Hematocrit (Bld) [Volume fraction] 42.9 % Normal 42.0-54.0 [facility] Comment on above: Performed By: #### C BC ####[facility] Nkilokdbjg70[address] [place], [place] [address]Dr. Garima Pulliam Hemoglobin (Bld) [Mass/Vol] 14.4 g/dL Normal 14.0-18.0 [facility] Comment on above: Performed By: #### C BC ####[facility] Evfzigxeme6[address] [place], [place] [address]Dr. Garima Pulliam IG # 0.00 10e3/ul Normal 0.00-0.03 [facility] Comment on above: Performed By: #### C BC ####[facility] Bjkunyyxqk01[address] [place], [place] [address]Dr. Garima Pulliam IG % 0.0 % Normal 0.0-0.5 [facility] Comment on above: Performed By: #### C BC ####[facility] Fanjqgtwvx093[address] [place], [place] [address]Dr. Garima Pulliam LYMPH # 2.4 103/ul Normal 1.2-3.8 [facility] Comment on above: Performed By: #### C BC ####[facility] Xssmosltaj0407 [place] [id number]. Chapisrenu Pulliam Lymphocytes/100 WBC (Bld) 29.2 % Normal 20.5-60.0 [facility] Comment on above: Performed By: #### C BC ####[facility] Urgoyfoyuz3979 [place] [phone]. Garima Pulliam MANUAL DIFF REQ NO Normal [facility] Comment on above: Performed By: #### C BC ####[facility] Nkefkvjkrj4480 [place] [phone]. Garima Pulliam MCH (RBC) [Entitic mass] 30.7 pg Normal 25.9-34.0 [facility] Comment on above: Performed By: #### C BC ####[facility] Slwdqiooim[address] [place], [place] [address]Dr. Garima Pulilam MCHC (RBC) [Mass/Vol] 33.6 g/dL Normal 29.9-35.2 [facility] Comment on above: Performed By: #### C BC ####[facility] Xdztkyvswq[address] [place], [place] [address]Dr. Garima Pulliam MCV (RBC) [Entitic vol] 91.5 fL Normal 80.0-94.0 [facility] Comment on above: Performed By: #### C BC ####[facility] Cidjyxcajs[address] [place], [place] [address]Dr. Garima Pulliam MONO # 0.0 103/ul Critically low 0.3-0.8 The [facility] Comment on above: Performed By: #### C BC ####[facility] Duqyhkqnou3782 [place] [address]Dr. Garima Pulliam Monocytes/100 WBC (Bld) 8.0 % Normal 1.7-12.0 [facility] Comment on above: Performed By: #### C BC ####[facility] M[address]rjrlfhg[address] [place], [place] [address]Dr. Garima Pulliam NEUT # 5.1 103/ul Normal 1.4-6.5 [facility] Comment on above: Performed By: #### C BC ####[facility] Lcbdjlalov7542 [place], [place] [address]Hr. Garima Pulliam Neutrophils/100 WBC (Bld) 62.8 % Normal 43.0-75.0 [facility] Comment on above: Performed By: #### C BC ####[facility] Evorqxknrf5325 [place], [place] [address]Fa. Garima Pulliam Platelet mean volume (Bld) [Entitic vol] 8.6 fL Critically low 9.5-13.5 [facility] Comment on above: Performed By: #### C BC ####[facility] Nxijrrbpop7000 [place] [id number]. Garima Pulliam PLT 200 103/ul Normal 150-450 [facility] Comment on above: Performed By: #### C BC ####[facility] Dnpvelstiy2761 [place] [phone]. Garima Pulliam RBC 4.69 106/ul Critically low 4.70-6.10 [facility] Comment on above: Performed By: #### C BC ####[facility] Depgymhgfd7049 [place], [place] [address]Zw. Garima Pulliam WBC 8.2 103/ul Normal 4.0-11.0 [facility] Comment on above: Performed By: #### C BC ####[facility] Uqaaskctsc0624 [place], [place] [address]Bl. Garima Pulliam [facility]on SARS-CoV-2 (COVID-19) RNA MARIE+probe Ql (Unsp spec) Not detected Normal NOT DETECTED [facility] Comment on above: Result Comment: When diagnostic [...] for this test is supported by the [place] of Health and Human Service's declaration that [...] Performed By: #### C VDTBH ####[facility] Vdlgpxsqdk[address] [place], [place] [address]Dr. Garima Pulliam INFLUENZA A AND B AGon 12-25 INFLUANEGH SEE BELOW Normal [facility] Comment on above: Result Comment: Nega tive for Flu A protein angiten. Infection due to Flu A cannot be ruled out. Flu A angiten in the sample may be below the detection limit of the test. Performed By: #### I NFLUAB ####[facility] Jurfjpucgs[address] [place], [place] [address]Dr. Garima Pulliam INFLUBNEGH SEE BELOW Normal [facility] Comment on above: Result Comment: Nega tive for Flu B protein antigen. Infection due to Flu B cannot be ruled out. Flu B antigen in the sample may be below the detection limit of the test. Performed By: #### I NFLUAB ####[facility] Lrgomhlshn88[address] [place], [place] [address]Dr. Garima Pulliam INFLUENZA A AG Negative Normal NEGATIVE SEE COMMENT [facility] Comment on above: Performed By: #### I NFLUAB ####[facility] Gnqbfzpzal[address] [place], [place] [address]Dr. renu [facility] INFLUENZA B AG Negative Normal NEGATIVE SEE COMMENT [facility] Comment on above: Performed By: #### I NFLUAB ####[facility] Kktksefiqs66[address] [place], [place] [address]Dr. Garima Pulliam PROF CHEM 8 (BAS METB)on Anion gap [Moles/Vol] 11.1 mmol/L Normal Th [facility] Comment on above: Performed By: #### B TECHNICAL SYSTEM ANALYST, BMP, CMADM ####[facility] Hvfbttukzo97[address] [place], [place] [address]Dr. Garima Pulliam Calcium [Mass/Vol] 8.5 mg/dL Normal 8.5-10.1 The [facility] Comment on above: Performed By: #### B TECHNICAL SYSTEM ANALYST, MARVIN, CMADM ####[facility] Aduivzeiss0229 [place] [phone]. Garima Pulliam Chloride [Moles/Vol] 106 mmol/L Normal 98-107 [facility] Comment on above: Performed By: #### B TECHNICAL SYSTEM ANALYST, BMP, CMADM ####[facility] Kpnfudjivp2893 [place] [address]Dr. Garima Pulliam CO2 [Moles/Vol] 27.4 mmol/L Normal 21.0-32.0 The [facility] Comment on above: Performed By: #### B TECHNICAL SYSTEM ANALYST, MARVIN, CMADM ####[facility] Awuehczivp6289 [place] [address]Dr. Garima Pulliam Creatinine [Mass/Vol] 0.65 mg/dL Critically low 0.70-1.30 [facility] Comment on above: Performed By: #### B TECHNICAL SYSTEM ANALYST, MARVIN, CMADM ####[facility] Xjlzbdlpny5681 [place] [address]Dr. Garima Pulliam EGFR-AF MACANESE >60 Normal >=60 [facility] Comment on above: Performed By: #### B TECHNICAL SYSTEM ANALYST, BMP, CMADM ####[facility] Ruadjmbjyz1101 [place] [address]Dr. Garima Pulliam EGFR-NON AF MACANESE >60 Normal >=60 [facility] Comment on above: Performed By: #### B TECHNICAL SYSTEM ANALYST, BMP, CMADM ####[facility] Bhejienqxl9796 [place] [address]Dr. Garima Pulliam Glucose [Mass/Vol] 140 mg/dL Critically high 74-106 [facility] Comment on above: Performed By: #### B TECHNICAL SYSTEM ANALYST, BMP, CMADM ####[facility] Nqepnmxtvo5108 [place] [address]Dr. Garima Pulliam Potassium [Moles/Vol] 3.5 mmol/L Normal 3.5-5.1 [facility] Comment on above: Performed By: #### B TECHNICAL SYSTEM ANALYST, BMP, CMADM ####[facility] Xtphggmuys4077 [place] [address]Dr. Garima Pulliam Sodium [Moles/Vol] 141 mmol/L Normal 136-145 [facility] Comment on above: Performed By: #### B TECHNICAL SYSTEM ANALYST, BMP, CMADM ####[facility] Znzfolzdiy0112 [place] [address]Dr. Garima Pulliam Urea nitrogen [Mass/Vol] 8.0 mg/dL Normal 7.0-18.0 [facility] Comment on above: Performed By: #### B TECHNICAL SYSTEM ANALYST, BMP, CMADM ####[facility] Sukbxwgxbn7849 [place] [address]Dr. Garima Pulliam Urea nitrogen/Creatinine [Mass ratio] 12.3 mg/mg Normal [facility] Comment on above: Performed By: #### B TECHNICAL SYSTEM ANALYST, BMP, CMADM ####[facility] Mqtgsrejzk[address] [place], [place] [address]Dr. Garima Pulliam CARDIAC NASH ADMITon 023 CK [Catalytic activity/Vol] 165 U/L Normal 39-308 [facility] Comment on above: Performed By: #### B DAVID, CMADM ####[facility] Pxzdedepqf7[address] [place], [place] [address]Dr. Garima Pulliam CK.MB [Mass/Vol] 6.48 ng/mL Critically high <=3.60 [facility] Comment on above: Performed By: #### B MP, CMADM ####[facility] Pwugtoqejo[address] [place], [place] [address]Dr. Garima Pulliam HSTROP 11.7 pg/mL Normal 4.0-76.1 [facility] Comment on above: Result Comment: CUT- OFF POINTS HAVE BEEN ESTABLISHED BASED ON THE FOURTH UNIVERSAL DEFINITIONS OF MYOCARDIALINFARCTION. THE UPPER REFERENCE LIMIT (URL) OF TROPONIN, DEFINED THE 99TH PERCENTILE OFcTnI DISTRIBUTION IN A REFERENCE POPULATION, HAS BEEN CONFIRMED THE DECISION THRESHOLDFOR [place] DIAGNOSIS. Performed By: #### B MP, CMADM ####[facility] Vckjxyfmfc2[address] [place], [place] [address]Dr. Garima Pulliam DORIS 83 ng/mL Normal 16-96 [facility] Comment on above: Performed By: #### B MP, CMADM ####[facility] Glqoymkirs4514 [place] [address]Dr. Garima Pulliam CBC AUTO DIFFon 12-10-2022 BASO # 0.0 103/ul Normal 0.0-0.1 [facility] Comment on above: Performed By: #### C BC ####[facility] Rqyfgastxv89[address] [place], [place] [address]Dr. Garima Heraclio Basophils/100 WBC (Bld) 0.3 % Normal 0.2-2.0 [facility] Comment on above: Performed By: #### C BC ####[facility] Ttirowvxhc[address] [place], [place] [address]Dr. Garima Pulliam EO # 0.1 103/ul Normal 0.0-0.7 [facility] Comment on above: Performed By: #### C BC ####[facility] Nxmfgvgwzl9[address] [place], [place] [address]Dr. Garima Pulliam Eosinophils/100 WBC (Bld) 0.4 % Critically low 0.9-7.0 [facility] Comment on above: Performed By: #### C BC ####[facility] Qiyzwdpjuh73[address] [place], [place] [address]Dr. Garima Pulliam Erythrocyte distribution width (RBC) [Ratio] 13.2 % Normal 11.0-15.0 [facility] Comment on above: Performed By: #### C BC ####[facility] Fupricdseu2019[address] [place], [place] [address]Dr. Garima Pulliam Hematocrit (Bld) [Volume fraction] 42.4 % Normal 42.0-54.0 [facility] Comment on above: Performed By: #### C BC ####[facility] Cdyoxbualx[address] [place], [place] [address]Dr. Garima Pulliam Hemoglobin (Bld) [Mass/Vol] 14.4 g/dL Normal 14.0-18.0 [facility] Comment on above: Performed By: #### C BC ####[facility] Fomxmjdwkj6683 [place] [id number]. Garima Heraclio IG # 0.05 10e3/ul Critically high 0.00-0.03 The [facility] Comment on above: Performed By: #### C BC ####[facility] Xwyornhtwi1204 [place] [address]Dr. Garima Heraclio IG % 0.4 % Normal 0.0-0.5 [facility] Comment on above: Performed By: #### C BC ####[facility] Xppqcvytts[address] [place], [place] [address]Dr. Garima Pulliam LYMPH # 0.8 103/ul Critically low 1.2-3.8 The [facility] Comment on above: Performed By: #### C BC ####[facility] Quipzaxyhn[address] [place], [place] [address]Dr. Chapisrenu Pulliam Lymphocytes/100 WBC (Bld) 6.5 % Critically low 20.5-60.0 [facility] Comment on above: Performed By: #### C BC ####[facility] Ebvhplwbiq[address] [place], [place] [address]Dr. Chapisrenu Pulliam MANUAL DIFF REQ NO Normal [facility] Comment on above: Performed By: #### C BC ####[facility] Cclecutxqb18[address] [place], [place] [address]DrAdalberto Garima Pulliam MCH (RBC) [Entitic mass] 30.5 pg Normal 25.9-34.0 [facility] Comment on above: Performed By: #### C BC ####[facility] Ysaipqedur[address] [place], [place] [address]DrAdalberto Garima Heraclio MCHC (RBC) [Mass/Vol] 34.0 g/dL Normal 29.9-35.2 [facility] Comment on above: Performed By: #### C BC ####[facility] Ftbczcbczd12[address] [place], [place] [address]DrAdalberto Garima Heraclio MCV (RBC) [Entitic vol] 89.8 fL Normal 80.0-94.0 [facility] Comment on above: Performed By: #### C BC ####[facility] Irlgugdvfb8264[address] [place], [place] [address]Dr. Garima Pulliam MONO # 0.2 103/ul Critically low 0.3-0.8 The [facility] Comment on above: Performed By: #### C BC ####[facility] [address]ft[address]zrsi34[address] [place] [phone]. Garima Pulliam Monocytes/100 WBC (Bld) 2.0 % Normal 1.7-12.0 [facility] Comment on above: Performed By: #### C BC ####[facility] Xpydjyifou6365 [place] [address]Dr. Chapisrenu Heraclio NEUT # 10.5 103/ul Critically high 1.4-6.5 The [facility] Comment on above: Performed By: #### C BC ####[facility] Kanwwtzqwr7086 [place] [address]Dr. Garima Pulliam Neutrophils/100 WBC (Bld) 90.4 % Critically high 43.0-75.0 [facility] Comment on above: Performed By: #### C BC ####[facility] Jfpmcnkxql7249 [place] [address]Dr. Garima Pulliam Platelet mean volume (Bld) [Entitic vol] 9.4 fL Critically low 9.5-13.5 [facility] Comment on above: Performed By: #### C BC ####[facility] Iufzvxxgdt6764 [place] [address]Dr. Garima Pulliam PLT 198 103/ul Normal 150-450 [facility] Comment on above: Performed By: #### C BC ####[facility] Fjmcianlil0393 [place] [address]Dr. Garima Pulliam RBC 4.72 106/ul Normal 4.70-6.10 [facility] Comment on above: Performed By: #### C BC ####[facility] Uluerfbqlr5124 [place] [phone]. Garima Pulliam WBC 11.6 103/ul Critically high 4.0-11.0 The [facility] Comment on above: Performed By: #### C BC ####[facility] Zsdqffdbgl0487 [place] [address]DrAdalberto Pulliam PROF CHEM 8 (BAS METB)on Anion gap [Moles/Vol] 11.3 mmol/L Normal Th [facility] Comment on above: Performed By: #### B NANCY HERNANDEZ ####[facility] Yruxxpxmlc2978 [place] [address]Dr. Garima Pulliam Calcium [Mass/Vol] 8.9 mg/dL Normal 8.5-10.1 [facility] Comment on above: Performed By: #### B NANCY HERNANDEZ ####[facility] Xapwikhmuc1479 [place] [address]Dr. Garima Pulliam Chloride [Moles/Vol] 103 mmol/L Normal 98-107 [facility] Comment on above: Performed By: #### B NANCY HERNANDEZ ####[facility] Hpyquevfdr35[address] [place], [place] [address]Dr. Garima Pulliam CO2 [Moles/Vol] 28.2 mmol/L Normal 21.0-32.0 [facility] Comment on above: Performed By: #### NANCY Larkin MP ####[facility] Kyzlizdhgu4346 [place] [address]Dr. Chapisrenu Pulliam Creatinine [Mass/Vol] 0.60 mg/dL Critically low 0.70-1.30 [facility] Comment on above: Performed By: #### NANCY Larkin MP ####[facility] Obcakdqrhq5[address] [place] [address]Dr. Garima Pulliam EGFR-AF MACANESE >60 Normal >=60 [facility] Comment on above: Performed By: #### NANCY Larkin MP ####[facility] Uuznzypgec0955 [place] [address]Dr. Garima Pulliam EGFR-NON AF MACANESE >60 Normal >=60 [facility] Comment on above: Performed By: #### NANCY Larkin MP ####[facility] Ifjxkqqhkt8545[address] [place], [place] [address]Dr. Garima Pulliam Glucose [Mass/Vol] 166 mg/dL Critically high 74-106 [facility] Comment on above: Performed By: #### B MP, CMADM ####[facility] Vbgvnyqzch5323 [place] [address]Dr. Garima Pulliam Potassium [Moles/Vol] 3.5 mmol/L Normal 3.5-5.1 [facility] Comment on above: Performed By: #### B MP, CMADM ####[facility] Tyrmhqebqi7832 [place] [address]Dr. Garima Pulliam Sodium [Moles/Vol] 139 mmol/L Normal 136-145 The [facility] Comment on above: Performed By: #### B DAVID, CMADM ####[facility] Pcaeonxpnr9492 [place] [address]Dr. Garima Heraclio Urea nitrogen [Mass/Vol] 9.0 mg/dL Normal 7.0-18.0 [facility] Comment on above: Performed By: #### B DAVID, NANCY ####[facility] Eneqclnqfw6860[address] [place], [place] [address]Dr. Garima Heraclio Urea nitrogen/Creatinine [Mass ratio] 15.0 mg/mg Normal [facility] Comment on above: Performed By: #### B DAVID, CMAANA ROSA ####[facility] Btprsixtba558[address] [place], [place] [address]Dr. Garima Pulliam XR CHEST 1 Von 12-10-2022 XR CHEST 1 V Normal [facility] BNPon 11-27-2022 Natriuretic peptide B (Bld) [Mass/Vol] 95.0 pg/mL Normal <=900.0 [facility] Comment on above: Performed By: #### C MP, HSTROPN, BNP ####[facility] Joyhznumws0884[address] [place], [place] [address]Dr. Garima Heraclio CBC AUTO DIFFon 11-27-2022 BASO # 0.0 103/ul Normal 0.0-0.1 [facility] Comment on above: Performed By: #### C BC ####[facility] Vqklewszdw549[address] [place], [place] [address]Dr. Garima Heraclio Basophils/100 WBC (Bld) 0.2 % Normal 0.2-2.0 [facility] Comment on above: Performed By: #### C BC ####[facility] Ghjmeowype2056 [place] [phone]. Garima Pulliam EO # 0.2 103/ul Normal 0.0-0.7 [facility] Comment on above: Performed By: #### C BC ####[facility] Wcjpkcgoxn4009 [place] [phone]. Garima Pulliam Eosinophils/100 WBC (Bld) 2.0 % Normal 0.9-7.0 [facility] Comment on above: Performed By: #### C BC ####[facility] Lqqphivqst7245[address] [place], [place] [address]Dr. Garima Pulliam Erythrocyte distribution width (RBC) [Ratio] 13.2 % Normal 11.0-15.0 [facility] Comment on above: Performed By: #### C BC ####[facility] Tvkdbytcia179567 [address] [place], [place] [address]Dr. Garima Pulliam Hematocrit (Bld) [Volume fraction] 42.4 % Normal 42.0-54.0 [facility] Comment on above: Performed By: #### C BC ####[facility] Zsgnxbuyup9249[address] [place], [place] [address]Dr. Garima Pulliam Hemoglobin (Bld) [Mass/Vol] 14.4 g/dL Normal 14.0-18.0 [facility] Comment on above: Performed By: #### C BC ####[facility] Uqatfflmzz480[address] [place], [place] [address]Dr. Garima Pulliam IG # 0.04 10e3/ul Critically high 0.00-0.03 The [facility] Comment on above: Performed By: #### C BC ####[facility] Vsxoozorab525[address] [place], [place] [address]Dr. Garima Pulliam IG % 0.4 % Normal 0.0-0.5 [facility] Comment on above: Performed By: #### C BC ####[facility] Iqnrtexhuh260[address] [place], [place] [address]Dr. Garima Pulliam LYMPH # 2.2 103/ul Normal 1.2-3.8 [facility] Comment on above: Performed By: #### C BC ####[facility] Stgyiwscbe7926 [place] [phone]. Garima Pulliam Lymphocytes/100 WBC (Bld) 21.5 % Normal 20.5-60.0 [facility] Comment on above: Performed By: #### C BC ####[facility] Mplaukuaqu1275 [place] [phone]. Garima Heraclio MANUAL DIFF REQ NO Normal [facility] Comment on above: Performed By: #### C BC ####[facility] Jxnkhxgxjx7946 [place] [phone]. Garima Heraclio MCH (RBC) [Entitic mass] 30.4 pg Normal 25.9-34.0 [facility] Comment on above: Performed By: #### C BC ####[facility] Xclpajwion5489 [place] [address]Dr. Garima Heraclio MCHC (RBC) [Mass/Vol] 34.0 g/dL Normal 29.9-35.2 [facility] Comment on above: Performed By: #### C BC ####[facility] Vpkitczrjk6718 [place] [phone]. Garima Pulliam MCV (RBC) [Entitic vol] 89.6 fL Normal 80.0-94.0 [facility] Comment on above: Performed By: #### C BC ####[facility] Ynsirayukk1625 [place] [phone]. Garima Pulliam MONO # 0.8 103/ul Normal 0.3-0.8 [facility] Comment on above: Performed By: #### C BC ####[facility] Gjxpldiiqf8855 [place] [phone]. Chapisrenu Pulliam Monocytes/100 WBC (Bld) 7.7 % Normal 1.7-12.0 [facility] Comment on above: Performed By: #### C BC ####[facility] Pbdckvqrbn9[address] [place], [place] [address]Dr. Garima Pulliam NEUT # 7.0 103/ul Critically high 1.4-6.5 [facility] Comment on above: Performed By: #### C BC ####[facility] Fqljhmlwsn2243 [place] [phone]. Garima Pulliam Neutrophils/100 WBC (Bld) 68.2 % Normal 43.0-75.0 [facility] Comment on above: Performed By: #### C BC ####[facility] Znozlcldmb6433 [place] [phone]. Chapisrenu Pulliam Platelet mean volume (Bld) [Entitic vol] 8.9 fL Critically low 9.5-13.5 [facility] Comment on above: Performed By: #### C BC ####[facility] Myaxbmgoat7387 [place] [address]Dr. Garima Pulliam PLT 222 103/ul Normal 150-450 [facility] Comment on above: Performed By: #### C BC ####[facility] Rqifatmsif3183 [place] [address]Dr. Garima Pulliam RBC 4.73 106/ul Normal 4.70-6.10 [facility] Comment on above: Performed By: #### C BC ####[facility] Zijtfswjgt6067 [place] [address]Dr. Garima Pulliam WBC 10.3 103/ul Normal 4.0-11.0 [facility] Comment on above: Performed By: #### C BC ####[facility] Vtlxlnianw9072 [place] [address]Dr. Garima Pulliam PROF 14(COMP METB)on 023 Albumin [Mass/Vol] 3.7 g/dL Normal 3.4-5.0 [facility] Comment on above: Performed By: #### C MP, HSTROPN, BNP ####[facility] Ryqkgohvxk2150 [place] [address]Dr. Chapisrenu Pulliam Albumin/Globulin [Mass ratio] 1.5 {ratio} Normal [facility] Comment on above: Performed By: #### C MP, HSTROPN, BNP ####[facility] Kwuellrven0947 [place] [address]Dr. Garima Pulliam ALP [Catalytic activity/Vol] 79 U/L Normal 46-116 [facility] Comment on above: Performed By: #### C MP, HSTROPN, BNP ####[facility] Hutbbkksny2315 [place] [address]Dr. Garima Pulliam ALT [Catalytic activity/Vol] 32 U/L Normal 16-63 [facility] Comment on above: Performed By: #### C MP, HSTROPN, BNP ####[facility] Htlobksujz6053 [place] [address]Dr. Garima Pulliam Anion gap [Moles/Vol] 9.5 mmol/L Normal [facility] Comment on above: Performed By: #### C MP, HSTROPN, BNP ####[facility] Rejadecvul478[address] [place], [place] [address]Dr. Garima Pulliam AST [Catalytic activity/Vol] 25 U/L Normal 15-37 [facility] Comment on above: Performed By: #### C MP, HSTROPN, BNP ####[facility] Jhapgmsvoz84[address] [place], [place] [address]Dr. Chapislan Pulliam Bilirubin [Mass/Vol] 0.4 mg/dL Normal 0.2-1.0 [facility] Comment on above: Performed By: #### C MP, HSTROPN, BNP ####[facility] Pybxezcwbn959867 [address] [place], [place] [address]Dr. Garima Pulliam Calcium [Mass/Vol] 8.9 mg/dL Normal 8.5-10.1 [facility] Comment on above: Performed By: #### C MP, HSTROPN, BNP ####[facility] Tlrkzsclhy8[address] [place], [place] [address]Dr. Chapislan Pulliam Chloride [Moles/Vol] 103 mmol/L Normal 98-107 [facility] Comment on above: Performed By: #### C MP, HSTROPN, BNP ####[facility] Xdsozlqqny8340[address] [place], [place] [address]Dr. Yilan Pulliam CO2 [Moles/Vol] 28.6 mmol/L Normal 21.0-32.0 The [facility] Comment on above: Performed By: #### C MP, HSTROPN, BNP ####[facility] Njgbzzwlxm7880 [place] [address]Dr. Garima Pulliam Creatinine [Mass/Vol] 0.72 mg/dL Normal 0.70-1.30 [facility] Comment on above: Performed By: #### C MP, HSTROPN, BNP ####[facility] Epbtlbyjhf0676 [place] [address]Dr. Garima Pulliam EGFR-AF MACANESE >60 Normal >=60 [facility] Comment on above: Performed By: #### C MP, HSTROPN, BNP ####[facility] Scyvracwle0296 [place] [address]Dr. Garima Pulliam EGFR-NON AF MACANESE >60 Normal >=60 [facility] Comment on above: Performed By: #### C MP, HSTROPN, BNP ####[facility] Idumkzhvxh7149 [place] [address]Dr. Garima Pulliam Globulin (S) [Mass/Vol] 2.5 g/dL Normal [facility] Comment on above: Performed By: #### C MP, HSTROPN, BNP ####[facility] Vdumudsqnc0767[address] [place], [place] [address]Dr. Garima Pulliam Glucose [Mass/Vol] 114 mg/dL Critically high 74-106 [facility] Comment on above: Performed By: #### C MP, HSTROPN, BNP ####[facility] Vjjnrocgrb4[address] [place], [place] [address]Dr. Garima Pulliam Potassium [Moles/Vol] 4.1 mmol/L Normal 3.5-5.1 [facility] Comment on above: Performed By: #### C MP, HSTROPN, BNP ####[facility] Dueeswyzak170[address] [place], [place] [address]Dr. Garima Pulliam Protein [Mass/Vol] 6.2 g/dL Critically low 6.4-8.2 Th [facility] Comment on above: Performed By: #### C MP, HSTROPN, BNP ####[facility] Ensykhndud6867[address] [place], [place] [address]Dr. Yilan Pulliam Sodium [Moles/Vol] 137 mmol/L Normal 136-145 The [facility] Comment on above: Performed By: #### C MP, HSTROPN, BNP ####[facility] Lnhbwlyjsz5201 [place] [address]Dr. Garima Pulliam Urea nitrogen [Mass/Vol] 13.0 mg/dL Normal 7.0-18.0 [facility] Comment on above: Performed By: #### C MP, HSTROPN, BNP ####[facility] Zkwfzqcikc5223 [place] [address]Dr. Garima Uplliam Urea nitrogen/Creatinine [Mass ratio] 18.1 mg/mg Normal [facility] Comment on above: Performed By: #### C MP, HSTROPN, BNP ####[facility] Rpoyqmwrgo88[address] [place], [place] [address]Dr. Garima Pulliam TROPONIN, HIGH SENSITIVITYon 11-27-2022 HSTROP 11.8 pg/mL Normal 4.0-76.1 [facility] Comment on above: Result Comment: CUT- OFF POINTS HAVE BEEN ESTABLISHED BASED ON THE FOURTH UNIVERSAL DEFINITIONS OF MYOCARDIALINFARCTION. THE UPPER REFERENCE LIMIT (URL) OF TROPONIN, DEFINED THE 99TH PERCENTILE OFcTnI DISTRIBUTION IN A REFERENCE POPULATION, HAS BEEN CONFIRMED THE DECISION THRESHOLDFOR [place] DIAGNOSIS. Performed By: #### C MP, HSTROPN, BNP ####[facility] Abqfjyrvnm25[address] [place], [place] [address]Dr. Garima Pulliam XR CHEST 1 Von 11-27-2022 XR CHEST 1 V Normal [facility] BNPon 11-20-2022 Natriuretic peptide B (Bld) [Mass/Vol] 73.0 pg/mL Normal <=900.0 [facility] Comment on above: Performed By: #### B MP, HSTROPN, BNP ####[facility] Pzhiencnyv68[address] [place], [place] [address]Dr. Garima Pulliam CBC AUTO DIFFon 11-20-2022 BASO # 0.0 103/ul Normal 0.0-0.1 [facility] Comment on above: Performed By: #### C BC ####[facility] Wpkjcrdzfb5630 [place] [phone]. Garima Pulliam Basophils/100 WBC (Bld) 0.3 % Normal 0.2-2.0 [facility] Comment on above: Performed By: #### C BC ####[facility] Ifyiulvysg9494 [place] [phone]. Garima Pulliam EO # 0.2 103/ul Normal 0.0-0.7 [facility] Comment on above: Performed By: #### C BC ####[facility] Rxmikycpqn8628 [place] [address]Dr. Garima Pulliam Eosinophils/100 WBC (Bld) 2.1 % Normal 0.9-7.0 [facility] Comment on above: Performed By: #### C BC ####[facility] Wjkpnhqxrg28[address] [place], [place] [address]Dr. Garima Pulliam Erythrocyte distribution width (RBC) [Ratio] 13.2 % Normal 11.0-15.0 [facility] Comment on above: Performed By: #### C BC ####[facility] Agndtwdjbr93[address] [place], [place] [address]Dr. Garima Pulliam Hematocrit (Bld) [Volume fraction] 43.4 % Normal 42.0-54.0 [facility] Comment on above: Performed By: #### C BC ####[facility] V[address]zizcv[address] [place], [place] [address]Dr. Garima Pulliam Hemoglobin (Bld) [Mass/Vol] 14.6 g/dL Normal 14.0-18.0 [facility] Comment on above: Performed By: #### C BC ####[facility] Rlxfusjpfj4089 [place] [phone]. Garima Pulliam IG # 0.02 10e3/ul Normal 0.00-0.03 [facility] Comment on above: Performed By: #### C BC ####[facility] Olbqrtabiy5563 [place] [address]Dr. Garima Pulliam IG % 0.2 % Normal 0.0-0.5 [facility] Comment on above: Performed By: #### C BC ####[facility] Jlmpkvzryh0779 [place] [phone]. Garima Heraclio LYMPH # 2.1 103/ul Normal 1.2-3.8 [facility] Comment on above: Performed By: #### C BC ####[facility] Swaujzqjuu3273 [place] [phone]. Garima Heraclio Lymphocytes/100 WBC (Bld) 19.2 % Critically low 20.5-60.0 [facility] Comment on above: Performed By: #### C BC ####[facility] Horfrualne7393 [place] [phone]. Chapisrenu Pulliam MANUAL DIFF REQ NO Normal [facility] Comment on above: Performed By: #### C BC ####[facility] Zgqsxecygf1535 [place] [phone]. Garima Heraclio MCH (RBC) [Entitic mass] 30.4 pg Normal 25.9-34.0 [facility] Comment on above: Performed By: #### C BC ####[facility] Ldaeddhgmd6580 [place] [address]Dr. Garima Pulliam MCHC (RBC) [Mass/Vol] 33.6 g/dL Normal 29.9-35.2 [facility] Comment on above: Performed By: #### C BC ####[facility] Avypxzwjpj7551 [place] [phone]. Garima Heraclio MCV (RBC) [Entitic vol] 90.4 fL Normal 80.0-94.0 [facility] Comment on above: Performed By: #### C BC ####[facility] Mxaaydilnn5349 [place] [phone]. Garima Heraclio MONO # 0.6 103/ul Normal 0.3-0.8 [facility] Comment on above: Performed By: #### C BC ####[facility] Vjplsmggot6002 [place] [address]Dr. Garima Heraclio Monocytes/100 WBC (Bld) 5.8 % Normal 1.7-12.0 [facility] Comment on above: Performed By: #### C BC ####[facility] Oatbvnadas0462 [place], [place] [address]Go. Garima Pulliam NEUT # 7.8 103/ul Critically high 1.4-6.5 [facility] Comment on above: Performed By: #### C BC ####[facility] Yulpclnckw6867 [place] [phone]. Garima Pulliam Neutrophils/100 WBC (Bld) 72.4 % Normal 43.0-75.0 [facility] Comment on above: Performed By: #### C BC ####[facility] Zpntwsesbx1147 [place] [phone]. Garima Pulliam Platelet mean volume (Bld) [Entitic vol] 8.7 fL Critically low 9.5-13.5 [facility] Comment on above: Performed By: #### C BC ####[facility] Rnzecjwidr0519 [place] [phone]. Garima Pulliam PLT 184 103/ul Normal 150-450 [facility] Comment on above: Performed By: #### C BC ####[facility] Udgysjipkp2456 [place], [place] [address]Es. Garima Pulliam RBC 4.80 106/ul Normal 4.70-6.10 [facility] Comment on above: Performed By: #### C BC ####[facility] Gdzvtzprmy4612 [place] [phone]. Garima Pulliam WBC 10.8 103/ul Normal 4.0-11.0 [facility] Comment on above: Performed By: #### C BC ####[facility] Ekrxauwnui0659 [place] [phone]. Garima Pulliam [facility]on 10-24 SARS-CoV-2 (COVID-19) RNA MARIE+probe Ql (Unsp spec) Not detected Normal NOT DETECTED [facility] Comment on above: Result Comment: When diagnostic [...] for this test is supported by the [place] of Health and Human Service's declaration that [...] Performed By: #### C VDTBH ####[facility] Axshgdpgct678[address] [place], [place] [address]Dr. Garima Pulliam INFLUENZA A AND B AGon 11-20 [facility] SEE BELOW Normal [facility] Comment on above: Result Comment: Nega tive for Flu A protein angiten. Infection due to Flu A cannot be ruled out. Flu A angiten in the sample may be below the detection limit of the test. Performed By: #### I NFLUAB ####[facility] Bdtvjjyhai280[address] [place], [place] [address]Dr. Garima Pulliam INFLUBNEGH SEE BELOW Normal [facility] Comment on above: Result Comment: Nega tive for Flu B protein antigen. Infection due to Flu B cannot be ruled out. Flu B antigen in the sample may be below the detection limit of the test. Performed By: #### I NFLUAB ####[facility] Jpxbpogeax5404[address] [place], [place] [address]Dr. Garima Pulliam INFLUENZA A AG Negative Normal NEGATIVE SEE COMMENT [facility] Comment on above: Performed By: #### I NFLUAB ####[facility] Zpxfzktdbo6[address] [place], [place] [address]Dr. Garima [facility] INFLUENZA B AG Negative Normal NEGATIVE SEE COMMENT [facility] Comment on above: Performed By: #### I NFLUAB ####[facility] Rafnhnpsed466[address] [place], [place] [address]Dr. Garima Pulliam PROF CHEM 8 (BAS METB)on Anion gap [Moles/Vol] 8.2 mmol/L Normal [facility] Comment on above: Performed By: #### B MP, HSTROPN, BNP ####[facility] Rzqrtskvjm4572 [place] [address]Dr. Garima Pulliam Calcium [Mass/Vol] 8.7 mg/dL Normal 8.5-10.1 [facility] Comment on above: Performed By: #### B MP, HSTROPN, BNP ####[facility] Guflpuupnf7949 [place] [address]Dr. Garima Pulliam Chloride [Moles/Vol] 103 mmol/L Normal 98-107 [facility] Comment on above: Performed By: #### B MP, HSTROPN, BNP ####[facility] Kcmfwcvkyx80[address] [place], [place] [address]Dr. Garima Pulliam CO2 [Moles/Vol] 29.4 mmol/L Normal 21.0-32.0 The [facility] Comment on above: Performed By: #### B MP, HSTROPN, BNP ####[facility] Lzzgfhaptb[address] [place], [place] [address]Dr. Garima Pulliam Creatinine [Mass/Vol] 0.69 mg/dL Critically low 0.70-1.30 [facility] Comment on above: Performed By: #### B MP, HSTROPN, BNP ####[facility] Rdaslslshu6768 [place] [address]Dr. Garima Pullima EGFR-AF MACANESE >60 Normal >=60 The [facility] Comment on above: Performed By: #### B MP, HSTROPN, BNP ####[facility] Xsattvrqeb1694[address] [place], [place] [address]Dr. Garima Pulliam EGFR-NON AF MACANESE >60 Normal >=60 [facility] Comment on above: Performed By: #### B MP, HSTROPN, BNP ####[facility] Allxjhkvct2246 [place] [address]Dr. Garima Pulliam Glucose [Mass/Vol] 209 mg/dL Critically high 74-106 T [facility] Comment on above: Performed By: #### B MP, HSTROPN, BNP ####[facility] Mvelrclaqw4508 [place] [address]Dr. Garima Pulliam Potassium [Moles/Vol] 3.6 mmol/L Normal 3.5-5.1 [facility] Comment on above: Performed By: #### B MP, HSTROPN, BNP ####[facility] Hddytjwqjf2024 [place] [address]Dr. Garima Pulliam Sodium [Moles/Vol] 137 mmol/L Normal 136-145 The [facility] Comment on above: Performed By: #### B MP, HSTROPN, BNP ####[facility] Krubnvbudk7472 [place] [address]Dr. Garima Pulliam Urea nitrogen [Mass/Vol] 11.0 mg/dL Normal 7.0-18.0 [facility] Comment on above: Performed By: #### B MP, HSTROPN, BNP ####[facility] Zuwdutsngo8861 [place] [address]Dr. Garima Pulliam Urea nitrogen/Creatinine [Mass ratio] 15.9 mg/mg Normal [facility] Comment on above: Performed By: #### B MP, HSTROPN, BNP ####[facility] Xlkboumxgf3939 [place] [address]Dr. Garima Pulliam TROPONIN, HIGH SENSITIVITYon 11-20-2022 HSTROP 8.7 pg/mL Normal 4.0-76.1 [facility] Comment on above: Result Comment: CUT- OFF POINTS HAVE BEEN ESTABLISHED BASED ON THE FOURTH UNIVERSAL DEFINITIONS OF MYOCARDIALINFARCTION. THE UPPER REFERENCE LIMIT (URL) OF TROPONIN, DEFINED THE 99TH PERCENTILE OFcTnI DISTRIBUTION IN A REFERENCE POPULATION, HAS BEEN CONFIRMED THE DECISION THRESHOLDFOR [place] DIAGNOSIS. Performed By: #### B MP, HSTROPN, BNP ####[facility] Hsedwasoln4531 [place] [address]Dr. Garima Pulliam XR CHEST 1 Von 11-20-2022 XR CHEST 1 V Normal [facility] XR CHEST 1 Von 10-02-2022 XR CHEST 1 V Normal [facility] BNPon 09-29-2022 Natriuretic peptide B (Bld) [Mass/Vol] 107.0 pg/mL Normal <=900.0 [facility] Comment on above: Performed By: #### C MP, BNP, CMADM ####[facility] Vvoojvpdqo[address] [place] [address]Dr. Garima Pulliam CARDIAC NASH ADMITon 022 CK [Catalytic activity/Vol] 190 U/L Normal 39-308 [facility] Comment on above: Performed By: #### C MP, BNP, CMADM ####[facility] Evzitkwtfi[address] [place] [address]Dr. Garima Heraclio CK.MB [Mass/Vol] 11.11 ng/mL Critically high <=3.60 Th [facility] Comment on above: Performed By: #### C MP, BNP, CMADM ####[facility] Wrcfwfdqmd56[address] [place] [address]Dr. Garima Pulliam HSTROP 11.8 pg/mL Normal 4.0-76.1 [facility] Comment on above: Result Comment: CUT- OFF POINTS HAVE BEEN ESTABLISHED BASED ON THE FOURTH UNIVERSAL DEFINITIONS OF MYOCARDIALINFARCTION. THE UPPER REFERENCE LIMIT (URL) OF TROPONIN, DEFINED THE 99TH PERCENTILE OFcTnI DISTRIBUTION IN A REFERENCE POPULATION, HAS BEEN CONFIRMED THE DECISION THRESHOLDFOR [place] DIAGNOSIS. Performed By: #### C MP, BNP, CMADM ####[facility] Qnnhgqqsgw[address] [place] [address]Dr. Garima Pulliam DORIS 133 ng/mL Critically high 16-96 The [facility] Comment on above: Performed By: #### C MP, BNP, CMADM ####[facility] Msggkgcelx7093 [place] [address]Dr. Garima Heraclio CBC AUTO DIFFon 09-29-2022 BASO # 0.0 103/ul Normal 0.0-0.1 [facility] Comment on above: Performed By: #### C BC ####[facility] Xwnlusgnev46[address] [place] [address]Dr. Garima Heraclio Basophils/100 WBC (Bld) 0.2 % Normal 0.2-2.0 [facility] Comment on above: Performed By: #### C BC ####[facility] Zkbkrkmrhp80[address] [place] [id number]. Garima Pulliam EO # 0.1 103/ul Normal 0.0-0.7 [facility] Comment on above: Performed By: #### C BC ####[facility] Bcpeaxgqcq9946 [place] [id number]. Garima Pulliam Eosinophils/100 WBC (Bld) 1.4 % Normal 0.9-7.0 [facility] Comment on above: Performed By: #### C BC ####[facility] Mwyzwxogdh[address] [place], [place] [address]Dr. Garima Pulliam Erythrocyte distribution width (RBC) [Ratio] 13.7 % Normal 11.0-15.0 [facility] Comment on above: Performed By: #### C BC ####[facility] Yednosemqh8[address] [place], [place] [address]Dr. Garima Pulliam Hematocrit (Bld) [Volume fraction] 45.4 % Normal 42.0-54.0 [facility] Comment on above: Performed By: #### C BC ####[facility] Wfctyyqlmt694[address] [place], [place] [address]Dr. Garima Pulliam Hemoglobin (Bld) [Mass/Vol] 14.8 g/dL Normal 14.0-18.0 [facility] Comment on above: Performed By: #### C BC ####[facility] Yeumdhaxss5644[address] [place], [place] [address]Dr. Garima Pulliam IG # 0.04 10e3/ul Critically high 0.00-0.03 [facility] Comment on above: Performed By: #### C BC ####[facility] Hqvcpwndmc18[address] [place], [place] [address]Dr. Garima Pulliam IG % 0.5 % Normal 0.0-0.5 [facility] Comment on above: Performed By: #### C BC ####[facility] Ixzkgfldei0138[address] [place], [place] [address]Dr. Garima Pulliam LYMPH # 1.1 103/ul Critically low 1.2-3.8 The [facility] Comment on above: Performed By: #### C BC ####[facility] Ypivzvtotl5[address] [place] [phone]. Garima Pulliam Lymphocytes/100 WBC (Bld) 12.7 % Critically low 20.5-60.0 [facility] Comment on above: Performed By: #### C BC ####[facility] Tntxnzqcya8739 [place] [phone]. Chapisrenu Pulliam MANUAL DIFF REQ NO Normal [facility] Comment on above: Performed By: #### C BC ####[facility] Vcmmcoavrq[address] [place], [place] [id number]. Garima Heraclio MCH (RBC) [Entitic mass] 30.0 pg Normal 25.9-34.0 [facility] Comment on above: Performed By: #### C BC ####[facility] Tfolhnmxpm32[address] [place], [place] [address]Dr. Garima Heraclio MCHC (RBC) [Mass/Vol] 32.6 g/dL Normal 29.9-35.2 [facility] Comment on above: Performed By: #### C BC ####[facility] Erfqgunfhc[address] [place], [place] [address]Dr. Garima Heraclio MCV (RBC) [Entitic vol] 91.9 fL Normal 80.0-94.0 [facility] Comment on above: Performed By: #### C BC ####[facility] Wlkfboznro19[address] [place], [place] [address]Dr. Garima Pulliam MONO # 0.4 103/ul Normal 0.3-0.8 [facility] Comment on above: Performed By: #### C BC ####[facility] Kdffglzbgt147[address] [place], [place] [address]Dr. Chapisrenu Pulliam Monocytes/100 WBC (Bld) 4.8 % Normal 1.7-12.0 [facility] Comment on above: Performed By: #### C BC ####[facility] Eyoonwkctv340[address] [place], [place] [address]Dr. Garima Pulliam NEUT # 7.1 103/ul Critically high 1.4-6.5 [facility] Comment on above: Performed By: #### C BC ####[facility] Tdqdbxcwsf6356 [place], [place] [address]Tg. Garima Pulliam Neutrophils/100 WBC (Bld) 80.4 % Critically high 43.0-75.0 [facility] Comment on above: Performed By: #### C BC ####[facility] Bsubyfqvnw2787 [place] [phone]. Garima Pulliam Platelet mean volume (Bld) [Entitic vol] 9.1 fL Critically low 9.5-13.5 [facility] Comment on above: Performed By: #### C BC ####[facility] Aiuakrjjdl8374 [place] [phone]. Garima Pulliam PLT 200 103/ul Normal 150-450 [facility] Comment on above: Performed By: #### C BC ####[facility] Fjnwhzwqzh4467 [place] [phone]. Garima Pulliam RBC 4.94 106/ul Normal 4.70-6.10 [facility] Comment on above: Performed By: #### C BC ####[facility] Pgsrdwdspe2724 [place] [phone]. Garima Pulliam WBC 8.9 103/ul Normal 4.0-11.0 [facility] Comment on above: Performed By: #### C BC ####[facility] Ynhifjabgw9192 [place] [phone]. Garima Pulliam Covid-19 PCR (CVDTB)on SARS-CoV-2 (COVID-19) RNA MARIE+probe Ql (Unsp spec) Not detected Normal NOT DETECTED [facility] Comment on above: Result Comment: When diagnostic [...] for this test is supported by the [place] of Health and Human Service's declaration that [...] Performed By: #### C VDTBH ####[facility] [address]gxfazyies[address] [place] [address]Dr. Garima Pulliam LACTATE/LACTIC ACIDon 2021 Lactate [Moles/Vol] 1.7 mmol/L Normal 0.4-1.9 [facility] Comment on above: Performed By: #### L ACT ####[facility] Yntgfenwzt3[address] [place], [place] [address]Dr. Garima Pulliam PROF 14(COMP METB)on 022 Albumin [Mass/Vol] 3.8 g/dL Normal 3.4-5.0 [facility] Comment on above: Performed By: #### C MP, BNP, CMADM ####[facility] Oszgykfyuf169[address] [place], [place] [address]Dr. Garima Pulliam Albumin/Globulin [Mass ratio] 1.5 {ratio} Normal [facility] Comment on above: Performed By: #### C MP, BNP, CMADM ####[facility] Rzowfgbpac1221 [place] [address]Dr. Garima Pulliam ALP [Catalytic activity/Vol] 62 U/L Normal 46-116 [facility] Comment on above: Performed By: #### C MP, BNP, CMADM ####[facility] Kfrwfxmzvu8717 [place] [address]Dr. Garima Pulliam ALT [Catalytic activity/Vol] 37 U/L Normal 16-63 [facility] Comment on above: Performed By: #### C MP, BNP, CMADM ####[facility] Cqtvviferp3284 [place] [address]Dr. Garima Pulliam Anion gap [Moles/Vol] 8.0 mmol/L Normal [facility] Comment on above: Performed By: #### C MP, BNP, CMADM ####[facility] Evezlmtbct3198 [place] [address]Dr. Garima Pulliam AST [Catalytic activity/Vol] 20 U/L Normal 15-37 [facility] Comment on above: Performed By: #### C MP, BNP, CMADM ####[facility] Cbquribvpa5695 [place] [address]Dr. Garima Pulliam Bilirubin [Mass/Vol] 0.6 mg/dL Normal 0.2-1.0 [facility] Comment on above: Performed By: #### C MP, BNP, CMADM ####[facility] Fdbbpvbhso9168 [place] [address]Dr. Garima Pulliam Calcium [Mass/Vol] 9.1 mg/dL Normal 8.5-10.1 [facility] Comment on above: Performed By: #### C MP, BNP, CMADM ####[facility] Ovleigmeop0864[address] [place], [place] [address]Dr. Garima Pulliam Chloride [Moles/Vol] 103 mmol/L Normal 98-107 [facility] Comment on above: Performed By: #### C MP, BNP, CMADM ####[facility] Vdiviwjfbv24[address] [place], [place] [address]Dr. Garima Pulliam CO2 [Moles/Vol] 31.8 mmol/L Normal 21.0-32.0 The [facility] Comment on above: Performed By: #### C MP, BNP, CMADM ####[facility] Vlcoeedtyo14[address] [place], [place] [address]Dr. Garima Pulliam Creatinine [Mass/Vol] 0.63 mg/dL Critically low 0.70-1.30 [facility] Comment on above: Performed By: #### C MP, BNP, CMADM ####[facility] Jizijmkpds017[address] [place], [place] [address]Dr. Garima Pulliam EGFR-AF MACANESE >60 Normal >=60 The [facility] Comment on above: Performed By: #### C MP, BNP, CMADM ####[facility] Sskdhvvrdh[address] [place], [place] [address]Dr. Garima Pulliam EGFR-NON AF MACANESE >60 Normal >=60 [facility] Comment on above: Performed By: #### C MP, BNP, CMADM ####[facility] Uxpeidfjwt7[address] [place] [address]Dr. Garima Pulliam Globulin (S) [Mass/Vol] 2.6 g/dL Normal [facility] Comment on above: Performed By: #### C MP, BNP, CMADM ####[facility] Exeuzoavmk3169 [place] [address]Dr. Garima Pulliam Glucose [Mass/Vol] 103 mg/dL Normal 74-106 The [facility] Comment on above: Performed By: #### C MP, BNP, CMADM ####[facility] Vxtkhuqkqf1976 [place] [address]Dr. Garima Pulliam Potassium [Moles/Vol] 3.8 mmol/L Normal 3.5-5.1 [facility] Comment on above: Performed By: #### C MP, BNP, CMADM ####[facility] Cvhbrutxci1265 [place] [address]Dr. Garima Pulliam Protein [Mass/Vol] 6.4 g/dL Normal 6.4-8.2 The [facility] Comment on above: Performed By: #### C MP, BNP, CMADM ####[facility] Wrgftulkjx9993 [place] [address]Dr. Garima Pulliam Sodium [Moles/Vol] 139 mmol/L Normal 136-145 The [facility] Comment on above: Performed By: #### C MP, BNP, CMADM ####[facility] Pdvgnueewk5392 [place] [address]Dr. Garima Pulliam Urea nitrogen [Mass/Vol] 7.0 mg/dL Normal 7.0-18.0 [facility] Comment on above: Performed By: #### C MP, BNP, CMADM ####[facility] Sropzjsjkb4484 [place] [address]Dr. Garima Pulliam Urea nitrogen/Creatinine [Mass ratio] 11.1 mg/mg Normal [facility] Comment on above: Performed By: #### C MP, BNP, CMADM ####[facility] Ifkkwgdsxx4814 [place] [address]Dr. Garima Pulliam PROTIMEon 09-29-2022 INR Coag (PPP) [Relative time] 1.14 {INR} Normal [facility] Comment on above: Performed By: #### P T, PTT ####[facility] Cqzunkamby[address] [place], [place] [address]Dr. Garima Pulliam INR GUIDELINES SEE BELOW Normal The [facility] Comment on above: Result Comment: WESLEY RED INR: 2.0 - 3.0 CONDITIONS NOT LISTED BELOW 2.5 - 3.5 FOR PROSTHETIC HEART VALVE REPLACEMENT 2.5 - 3.5 RECURRENT THROMBOSIS Performed By: #### P T, PTT ####[facility] Rhciqasziy615[address] [place], [place] [address]Dr. Garima Pulliam PT Coag (PPP) [Time] 12.2 s Critically high 9.0-11.6 [facility] Comment on above: Performed By: #### P T, PTT ####[facility] Eucuhmifav28[address] [place], [place] [address]Dr. Garima Pulliam PTTon 09-29-2022 aPTT Coag (Bld) [Time] 29.3 s Normal 22.3-36.2 [facility] Comment on above: Performed By: #### P T, PTT ####[facility] Jftplzaktw67[address] [place], [place] [address]Dr. Garima Pulliam XR CHEST 1 Von 09-29-2022 XR CHEST 1 V Normal [facility] CBC AUTO DIFFon 09-26-2022 BASO # 0.0 103/ul Normal 0.0-0.1 [facility] Comment on above: Performed By: #### C BC ####[facility] Dvdljerihk1434[address] [place], [place] [address]Dr. Garima Pulliam Basophils/100 WBC (Bld) 0.2 % Normal 0.2-2.0 [facility] Comment on above: Performed By: #### C BC ####[facility] Hjfyramvyc35[address] [place], [place] [address]Dr. Garima Pulliam EO # 0.1 103/ul Normal 0.0-0.7 [facility] Comment on above: Performed By: #### C BC ####[facility] Ntoewicosx299[address] [place], [place] [address]Dr. Garima Pulliam Eosinophils/100 WBC (Bld) 1.0 % Normal 0.9-7.0 [facility] Comment on above: Performed By: #### C BC ####[facility] Paezgmxkkt041167 [address] [place], [place] [address]Dr. Garima Pulliam Erythrocyte distribution width (RBC) [Ratio] 13.4 % Normal 11.0-15.0 [facility] Comment on above: Performed By: #### C BC ####[facility] Dpcckiohnt68[address] [place], [place] [address]Dr. Garima Pulliam Hematocrit (Bld) [Volume fraction] 46.3 % Normal 42.0-54.0 [facility] Comment on above: Performed By: #### C BC ####[facility] Flkzpucmxj846667 [address] [place], [place] [address]Dr. Garima Pulliam Hemoglobin (Bld) [Mass/Vol] 15.3 g/dL Normal 14.0-18.0 [facility] Comment on above: Performed By: #### C BC ####[facility] Pelibdbpsm5423[address] [place], [place] [address]Dr. Garima Pulliam IG # 0.05 10e3/ul Critically high 0.00-0.03 [facility] Comment on above: Performed By: #### C BC ####[facility] Ggvttcfctp5811[address] [place], [place] [address]Dr. Garima Pulliam IG % 0.4 % Normal 0.0-0.5 [facility] Comment on above: Performed By: #### C BC ####[facility] Oitogphtgz358767 [address] [place], [place] [address]Dr. Garima Pulliam LYMPH # 1.7 103/ul Normal 1.2-3.8 [facility] Comment on above: Performed By: #### C BC ####[facility] Khnqoccpow361267 [address] [place], [place] [address]Dr. Garima Pulliam Lymphocytes/100 WBC (Bld) 12.7 % Critically low 20.5-60.0 [facility] Comment on above: Performed By: #### C BC ####[facility] Fzkgloexio9247 [place] [address]DrAdalberto Pulliam MANUAL DIFF REQ NO Normal [facility] Comment on above: Performed By: #### C BC ####[facility] Auatvdmwpi3791 [place] [address]Dr. Garima Pulliam MCH (RBC) [Entitic mass] 30.1 pg Normal 25.9-34.0 [facility] Comment on above: Performed By: #### C BC ####[facility] Szdelbcmcw860[address] [place], [place] [address]Dr. Garima Pulliam MCHC (RBC) [Mass/Vol] 33.0 g/dL Normal 29.9-35.2 [facility] Comment on above: Performed By: #### C BC ####[facility] Gxlwzfxvoo4606[address] [place], [place] [address]DrAdalberto Pulliam MCV (RBC) [Entitic vol] 91.1 fL Normal 80.0-94.0 [facility] Comment on above: Performed By: #### C BC ####[facility] Unpetxrqjk7874[address] [place], [place] [address]DrAdalberto Pulliam MONO # 0.9 103/ul Critically high 0.3-0.8 [facility] Comment on above: Performed By: #### C BC ####[facility] Dcnrdcjqcg4466[address] [place], [place] [address]DrAdalberto Pulliam Monocytes/100 WBC (Bld) 7.0 % Normal 1.7-12.0 [facility] Comment on above: Performed By: #### C BC ####[facility] Jbsjhmibse345[address] [place], [place] [address]DrAdalberto Pulliam NEUT # 10.4 103/ul Critically high 1.4-6.5 The [facility] Comment on above: Performed By: #### C BC ####[facility] Qjzyildewu0490[address] [place], [place] [address]DrAdalberto Pulliam Neutrophils/100 WBC (Bld) 78.7 % Critically high 43.0-75.0 [facility] Comment on above: Performed By: #### C BC ####[facility] Vdmhhslanv7198 [place] [address]Dr. Garima Pulliam Platelet mean volume (Bld) [Entitic vol] 8.9 fL Critically low 9.5-13.5 [facility] Comment on above: Performed By: #### C BC ####[facility] Kfvvwkuxoi9281 [place] [address]Dr. Garima Pulliam PLT 195 103/ul Normal 150-450 [facility] Comment on above: Performed By: #### C BC ####[facility] Ptgszjkysa075[address] [place], [place] [address]Dr. Garima Pulliam RBC 5.08 106/ul Normal 4.70-6.10 [facility] Comment on above: Performed By: #### C BC ####[facility] Qmwtkykxut1916[address] [place], [place] [address]Dr. Garima Pulliam WBC 13.2 103/ul Critically high 4.0-11.0 The [facility] Comment on above: Performed By: #### C BC ####[facility] Llnbodhgzy620[address] [place], [place] [address]Dr. Garima Pulliam PROF 14(COMP METB)on 022 Albumin [Mass/Vol] 3.5 g/dL Normal 3.4-5.0 [facility] Comment on above: Performed By: #### C DAVID HSTROPN ####[facility] Qyisytzvgl5154 [place] [address]Dr. Garima Pulliam Albumin/Globulin [Mass ratio] 1.2 {ratio} Normal [facility] Comment on above: Performed By: #### C RAFAT HERNANDEZTROPN ####[facility] Sbgtdadnuu4673 [place] [address]Dr. Garima Pulliam ALP [Catalytic activity/Vol] 71 U/L Normal 46-116 [facility] Comment on above: Performed By: #### C DAVID HSTROPN ####[facility] Rijnfpxoom9789 [place] [address]Dr. Garima Pulliam ALT [Catalytic activity/Vol] 37 U/L Normal 16-63 [facility] Comment on above: Performed By: #### C DAVID, HSTROPN ####[facility] Caikdnycfn1109 [place] [address]Dr. Garima Pulliam Anion gap [Moles/Vol] 4.8 mmol/L Normal [facility] Comment on above: Performed By: #### C DAVID, HSTROPN ####[facility] Qsjigyscwx986[address] [place], [place] [address]Dr. Garima Pulliam AST [Catalytic activity/Vol] 21 U/L Normal 15-37 [facility] Comment on above: Performed By: #### C DAVID, HSTROPN ####[facility] Bstyztjuis27[address] [place], [place] [address]Dr. Garima Pulliam Bilirubin [Mass/Vol] 0.3 mg/dL Normal 0.2-1.0 [facility] Comment on above: Performed By: #### C DAVID, HSTROPN ####[facility] Izmxaikema7218 [place] [address]Dr. Garima Pulliam Calcium [Mass/Vol] 8.9 mg/dL Normal 8.5-10.1 [facility] Comment on above: Performed By: #### C DAVID, HSTROPN ####[facility] Qsbniqfyga3297 [place] [address]Dr. Garima Pulliam Chloride [Moles/Vol] 106 mmol/L Normal 98-107 [facility] Comment on above: Performed By: #### C DAVID, HSTROPN ####[facility] Rpaqvssyei4255 [place] [address]Dr. Garima Pulliam CO2 [Moles/Vol] 29.8 mmol/L Normal 21.0-32.0 The [facility] Comment on above: Performed By: #### C DAVID, HSTROPN ####[facility] Apakwmpfrn2858 [place] [address]Dr. Garima Pulliam Creatinine [Mass/Vol] 0.68 mg/dL Critically low 0.70-1.30 The [facility] Comment on above: Performed By: #### C MP, HSTROPN ####[facility] Qbejnabkvx7269 [place] [address]Dr. Garima Pulliam EGFR-AF MACANESE >60 Normal >=60 [facility] Comment on above: Performed By: #### C MP, HSTROPN ####[facility] Dsbzgcdizu8888 [place] [address]Dr. Chapislan Pulliam EGFR-NON AF MACANESE >60 Normal >=60 [facility] Comment on above: Performed By: #### C MP, HSTROPN ####[facility] Rhyhmgzzez0165 [place] [address]Dr. Garima Pulliam Globulin (S) [Mass/Vol] 2.8 g/dL Normal [facility] Comment on above: Performed By: #### C MP, HSTROPN ####[facility] Iivifzkohp5808 [place] [address]Dr. Garima Pulliam Glucose [Mass/Vol] 133 mg/dL Critically high 74-106 [facility] Comment on above: Performed By: #### C MP, HSTROPN ####[facility] Nzbvzpdxzj8350 [place] [address]Dr. Chapisrenu Pulliam Potassium [Moles/Vol] 3.6 mmol/L Normal 3.5-5.1 [facility] Comment on above: Performed By: #### C MP, HSTROPN ####[facility] Mpbbwxoigd4448 [place] [address]Dr. Chapisrenu Pulliam Protein [Mass/Vol] 6.3 g/dL Critically low 6.4-8.2 Th [facility] Comment on above: Performed By: #### C MP, HSTROPN ####[facility] Rrffxdliwi26[address] [place], [place] [address]Dr. Chapisrenu Pulliam Sodium [Moles/Vol] 137 mmol/L Normal 136-145 [facility] Comment on above: Performed By: #### C MP, HSTROPN ####[facility] Iwhpcszyub029[address] [place], [place] [address]Dr. Garima Pulliam Urea nitrogen [Mass/Vol] 15.0 mg/dL Normal 7.0-18.0 [facility] Comment on above: Performed By: #### C DAVID HSTROPN ####[facility] Znkcynfijp5061 [place] [address]Dr. Chapisrenu Pulliam Urea nitrogen/Creatinine [Mass ratio] 22.1 mg/mg Normal [facility] Comment on above: Performed By: #### C DAVID HSTROPN ####[facility] Dukkgkldjq9612 [place] [address]Dr. Garima Heraclio TROPONIN, HIGH SENSITIVITYon 09-26-2022 HSTROP 12.8 pg/mL Normal 4.0-76.1 [facility] Comment on above: Result Comment: CUT- OFF POINTS HAVE BEEN ESTABLISHED BASED ON THE FOURTH UNIVERSAL DEFINITIONS OF MYOCARDIALINFARCTION. THE UPPER REFERENCE LIMIT (URL) OF TROPONIN, DEFINED THE 99TH PERCENTILE OFcTnI DISTRIBUTION IN A REFERENCE POPULATION, HAS BEEN CONFIRMED THE DECISION THRESHOLDFOR [place] DIAGNOSIS. Performed By: #### C DAVID HSTROPN ####[facility] Dzgebdomrz2132 [place] [address]Dr. Chapisrenu Pulliam XR CHEST 1 Von 09-26-2022 XR CHEST 1 V Normal [facility] XR CHEST 1 Von 09-16-2022 XR CHEST 1 V Normal [facility] CBC AUTO DIFFon 09-15-2022 BASO # 0.0 103/ul Normal 0.0-0.1 [facility] Comment on above: Performed By: #### C BC ####[facility] Omquxipnpy5982 [place] [address]Dr. Garima eHraclio Basophils/100 WBC (Bld) 0.1 % Critically low 0.2-2.0 [facility] Comment on above: Performed By: #### C BC ####[facility] Kwjwhpuyhy6030 [place] [address]Dr. Garima Pulliam EO # 0.0 103/ul Normal 0.0-0.7 [facility] Comment on above: Performed By: #### C BC ####[facility] Atsimwzhsm4674 [place] [address]Dr. Garima Pulliam Eosinophils/100 WBC (Bld) 0.1 % Critically low 0.9-7.0 [facility] Comment on above: Performed By: #### C BC ####[facility] Mixvvitgrf7531 [place] [address]Dr. Garima Pulliam Erythrocyte distribution width (RBC) [Ratio] 14.1 % Normal 11.0-15.0 [facility] Comment on above: Performed By: #### C BC ####[facility] Qvfetepbgx20[address] [place], [place] [address]Dr. Garima Pulliam Hematocrit (Bld) [Volume fraction] 46.1 % Normal 42.0-54.0 [facility] Comment on above: Performed By: #### C BC ####[facility] Vbethxuren[address] [place], [place] [address]Dr. Garima Pulliam Hemoglobin (Bld) [Mass/Vol] 15.0 g/dL Normal 14.0-18.0 [facility] Comment on above: Performed By: #### C BC ####[facility] Mpmlcofxly314[address] [place], [place] [address]Dr. Garima Pulliam IG # 0.03 10e3/ul Normal 0.00-0.03 [facility] Comment on above: Performed By: #### C BC ####[facility] Ulhhzalpom9[address] [place], [place] [address]Dr. Garima Pulliam IG % 0.3 % Normal 0.0-0.5 [facility] Comment on above: Performed By: #### C BC ####[facility] Ypnhswhaqe48[address] [place], [place] [address]Dr. Garima Pulliam LYMPH # 0.6 103/ul Critically low 1.2-3.8 The [facility] Comment on above: Performed By: #### C BC ####[facility] Anwjnbavct44[address] [place], [place] [address]Dr. Garima Pulliam Lymphocytes/100 WBC (Bld) 5.8 % Critically low 20.5-60.0 [facility] Comment on above: Performed By: #### C BC ####[facility] Nrhrygixfx6634 [place] [id number]. Garima Pulliam MANUAL DIFF REQ NO Normal [facility] Comment on above: Performed By: #### C BC ####[facility] Zgiouwyrqb0355 [place] [id number]. Garima Pulliam MCH (RBC) [Entitic mass] 30.2 pg Normal 25.9-34.0 [facility] Comment on above: Performed By: #### C BC ####[facility] Rslciepfny7940 [place] [address]Dr. Garima Pulliam MCHC (RBC) [Mass/Vol] 32.5 g/dL Normal 29.9-35.2 [facility] [facility] Comment on above: Performed By: #### C BC ####[facility] [address]ycf[address] [place] [address]Dr. Garima Pulliam MCV (RBC) [Entitic vol] 92.8 fL Normal 80.0-94.0 [facility] Comment on above: Performed By: #### C BC ####[facility] Rcwnfkjhqc17[address] [place] [address]Dr. Garima Heraclio MONO # 0.3 103/ul Normal 0.3-0.8 [facility] Comment on above: Performed By: #### C BC ####[facility] Xihqzncsny49[address] [place] [id number]. Garima Heraclio Monocytes/100 WBC (Bld) 3.2 % Normal 1.7-12.0 [facility] Comment on above: Performed By: #### C BC ####[facility] Uhbxsmodgb1866 [place] [id number]. Garima Pulliam NEUT # 9.8 103/ul Critically high 1.4-6.5 The [facility] Comment on above: Performed By: #### C BC ####[facility] Pfiuhbdagf55[address] [place] [id number]. Garima Pulliam Neutrophils/100 WBC (Bld) 90.5 % Critically high 43.0-75.0 [facility] Comment on above: Performed By: #### C BC ####[facility] Nkzksrkniz033[address] [place] [phone]. Garima Pulliam Platelet mean volume (Bld) [Entitic vol] 9.4 fL Critically low 9.5-13.5 [facility] Comment on above: Performed By: #### C BC ####[facility] Kqirpihcbl4[address] [place] [phone]. Garima Pulliam PLT 208 103/ul Normal 150-450 [facility] Comment on above: Performed By: #### C BC ####[facility] Abasqgjuzn26[address] [place] [address]Dr. Garima Pulliam RBC 4.97 106/ul Normal 4.70-6.10 [facility] Comment on above: Performed By: #### C BC ####[facility] Yjqavguazz38[address] [place] [address]Dr. Garima Pulliam WBC 10.8 103/ul Normal 4.0-11.0 [facility] Comment on above: Performed By: #### C BC ####[facility] Wdofzytmzy72[address] [place] [address]Dr. Garima Pulliam PROF 14(COMP METB)on 022 Albumin [Mass/Vol] 4.0 g/dL Normal 3.4-5.0 [facility] Comment on above: Performed By: #### C MP ####[facility] Mfvxqnjywz340[address] [place] [address]Dr. Garima Pulliam Albumin/Globulin [Mass ratio] 1.5 {ratio} Normal [facility] Comment on above: Performed By: #### C MP ####[facility] Cydlxoccgd72[address] [place] [address]Dr. Garima Pulliam ALP [Catalytic activity/Vol] 73 U/L Normal 46-116 [facility] Comment on above: Performed By: #### C MP ####[facility] Uyjvddsbdt7406 [place] [address]Dr. Garima Pulliam ALT [Catalytic activity/Vol] 42 U/L Normal 16-63 [facility] Comment on above: Performed By: #### C MP ####[facility] Syjztehrla16[address] [place] [address]Dr. Garima Pulliam Anion gap [Moles/Vol] 9.1 mmol/L Normal [facility] Comment on above: Performed By: #### C MP ####[facility] Etlvjaiphp[address] [place], [place] [address]Dr. Garima Pulliam AST [Catalytic activity/Vol] 28 U/L Normal 15-37 [facility] Comment on above: Performed By: #### C MP ####[facility] Ldkptqpkuv9[address] [place], [place] [address]Dr. Garima Pulliam Bilirubin [Mass/Vol] 0.6 mg/dL Normal 0.2-1.0 [facility] Comment on above: Performed By: #### C MP ####[facility] Mmpxnhbkju99[address] [place], [place] [address]Dr. Garima Pulliam Calcium [Mass/Vol] 8.6 mg/dL Normal 8.5-10.1 The [facility] Comment on above: Performed By: #### C MP ####[facility] Bkxdwkktmu5326[address] [place], [place] [address]Dr. Garima Pulliam Chloride [Moles/Vol] 105 mmol/L Normal 98-107 [facility] Comment on above: Performed By: #### C MP ####[facility] Wfkaecgnce11[address] [place], [place] [address]Dr. Garima Pulliam CO2 [Moles/Vol] 28.5 mmol/L Normal 21.0-32.0 The [facility] Comment on above: Performed By: #### C MP ####[facility] Wmnfslchtu75[address] [place], [place] [address]Dr. Garima Heraclio Creatinine [Mass/Vol] 0.78 mg/dL Normal 0.70-1.30 [facility] Comment on above: Performed By: #### C MP ####[facility] Tkikaqhjjj112[address] [place], [place] [address]Dr. Chapisrenu Heraclio EGFR-AF MACANESE >60 Normal >=60 The [facility] Comment on above: Performed By: #### C MP ####[facility] Bcqrpbkktd78[address] [place], [place] [address]Dr. Garima Pulliam EGFR-NON AF MACANESE >60 Normal >=60 [facility] Comment on above: Performed By: #### C MP ####[facility] Cumjmzfsvy7627 [place] [address]Dr. Gariam Pulliam Globulin (S) [Mass/Vol] 2.7 g/dL Normal [facility] Comment on above: Performed By: #### C MP ####[facility] Dtuhbbvleo6266 [place] [address]Dr. Garima Pulliam Glucose [Mass/Vol] 220 mg/dL Critically high 74-106 T [facility] Comment on above: Performed By: #### C MP ####[facility] Ynhmhrqyjb6296 [place] [address]Dr. Garima Pulliam Potassium [Moles/Vol] 3.6 mmol/L Normal 3.5-5.1 [facility] Comment on above: Performed By: #### C MP ####[facility] Czpqiqlrqh25[address] [place], [place] [address]Dr. Garima Pulliam Protein [Mass/Vol] 6.7 g/dL Normal 6.4-8.2 [facility] Comment on above: Performed By: #### C MP ####[facility] Nrjcqmtete8034[address] [place], [place] [address]Dr. Garima Pulliam Sodium [Moles/Vol] 139 mmol/L Normal 136-145 [facility] Comment on above: Performed By: #### C MP ####[facility] Wtyrryjvpi344[address] [place], [place] [address]Dr. Garima Pulliam Urea nitrogen [Mass/Vol] 11.0 mg/dL Normal 7.0-18.0 [facility] Comment on above: Performed By: #### C MP ####[facility] Olpxnmuddh764[address] [place], [place] [address]Dr. Garima Pulliam Urea nitrogen/Creatinine [Mass ratio] 14.1 mg/mg Normal [facility] Comment on above: Performed By: #### C MP ####[facility] Nmpqwwipey5[address] [place], [place] [address]Dr. Garima Pulliam CARDIAC NASH 3-6on 2 CK [Catalytic activity/Vol] 240 U/L Normal 39-308 [facility] Comment on above: Performed By: #### C MREP ####[facility] Rognoxrhjy8[address] [place] [address]Dr. Garima Pulliam CK.MB [Mass/Vol] 10.38 ng/mL Critically high <=3.60 Th [facility] Comment on above: Performed By: #### C MREP ####[facility] Kteefrubjx9724 [place] [address]Dr. Garima Pulliam HSTROP 18.5 pg/mL Normal 4.0-76.1 [facility] Comment on above: Result Comment: CUT- OFF POINTS HAVE BEEN ESTABLISHED BASED ON THE FOURTH UNIVERSAL DEFINITIONS OF MYOCARDIALINFARCTION. THE UPPER REFERENCE LIMIT (URL) OF TROPONIN, DEFINED THE 99TH PERCENTILE OFcTnI DISTRIBUTION IN A REFERENCE POPULATION, HAS BEEN CONFIRMED THE DECISION THRESHOLDFOR [place] DIAGNOSIS. Performed By: #### C MREP ####[facility] Mqqnxoralj0569 [place] [address]Dr. Garima Pulliam CK [Catalytic activity/Vol] 257 U/L Normal 39-308 [facility] Comment on above: Performed By: #### C MREP ####[facility] Nmsaduroww22[address] [place], [place] [address]Dr. Garima Pulliam CK.MB [Mass/Vol] 9.89 ng/mL Critically high <=3.60 [facility] Comment on above: Performed By: #### C MREP ####[facility] Qlvpzcxijl99[address] [place], [place] [address]Dr. Garima Pulliam HSTROP 16.9 pg/mL Normal 4.0-76.1 [facility] Comment on above: Result Comment: CUT- OFF POINTS HAVE BEEN ESTABLISHED BASED ON THE FOURTH UNIVERSAL DEFINITIONS OF MYOCARDIALINFARCTION. THE UPPER REFERENCE LIMIT (URL) OF TROPONIN, DEFINED THE 99TH PERCENTILE OFcTnI DISTRIBUTION IN A REFERENCE POPULATION, HAS BEEN CONFIRMED THE DECISION THRESHOLDFOR [place] DIAGNOSIS. Performed By: #### C MREP ####[facility] Clzuugyfds60[address] [place] [address]Dr. Garima Heraclio CBC AUTO DIFFon 10-22-2022 BASO # 0.0 103/ul Normal 0.0-0.1 [facility] Comment on above: Performed By: #### C BC ####[facility] Tiyuayywvw13[address] [place] [id number]. Garima Pulliam Basophils/100 WBC (Bld) 0.1 % Critically low 0.2-2.0 [facility] Comment on above: Performed By: #### C BC ####[facility] Dpwbpxvsiv9471 [place] [address]Dr. Garima Pulliam EO # 0.0 103/ul Normal 0.0-0.7 [facility] Comment on above: Performed By: #### C BC ####[facility] Aljztwhjvz[address] [place], [place] [address]Dr. Chapisrenu Heraclio Eosinophils/100 WBC (Bld) 0.0 % Critically low 0.9-7.0 [facility] Comment on above: Performed By: #### C BC ####[facility] Jqwozvawrd66[address] [place], [place] [address]Dr. Garima Pulliam Erythrocyte distribution width (RBC) [Ratio] 13.6 % Normal 11.0-15.0 [facility] Comment on above: Performed By: #### C BC ####[facility] Fhujyzdgof613[address] [place], [place] [address]Dr. Garima Pulliam Hematocrit (Bld) [Volume fraction] 48.2 % Normal 42.0-54.0 [facility] Comment on above: Performed By: #### C BC ####[facility] Yqbqcmcnkb823[address] [place], [place] [address]Dr. Garima Pulliam Hemoglobin (Bld) [Mass/Vol] 16.0 g/dL Normal 14.0-18.0 [facility] Comment on above: Performed By: #### C BC ####[facility] Sfvcxdnnyg549[address] [place], [place] [address]Dr. Chapisrenu Heraclio IG # 0.02 10e3/ul Normal 0.00-0.03 [facility] Comment on above: Performed By: #### C BC ####[facility] Hkobdjbjfh8624 [place] [phone]. Garima Pulliam IG % 0.3 % Normal 0.0-0.5 [facility] Comment on above: Performed By: #### C BC ####[facility] Gyuhkxudgi4307 [place] [address]Dr. Garima Heraclio LYMPH # 0.5 103/ul Critically low 1.2-3.8 The [facility] Comment on above: Performed By: #### C BC ####[facility] Kakginqvce1338 [place] [address]Dr. Garima Heraclio Lymphocytes/100 WBC (Bld) 7.7 % Critically low 20.5-60.0 [facility] Comment on above: Performed By: #### C BC ####[facility] Vmyslfurzd[address] [place], [place] [address]Dr. Chapisrenu Pulliam MANUAL DIFF REQ NO Normal The [facility] Comment on above: Performed By: #### C BC ####[facility] Afxfzunbkt6[address] [place], [place] [address]Dr. Garima Heraclio MCH (RBC) [Entitic mass] 30.6 pg Normal 25.9-34.0 [facility] Comment on above: Performed By: #### C BC ####[facility] Ootahodmth24[address] [place], [place] [address]Dr. Garima Pulliam MCHC (RBC) [Mass/Vol] 33.2 g/dL Normal 29.9-35.2 [facility] Comment on above: Performed By: #### C BC ####[facility] Sfflwrbkch34[address] [place], [place] [address]Dr. Garima Heraclio MCV (RBC) [Entitic vol] 92.2 fL Normal 80.0-94.0 [facility] Comment on above: Performed By: #### C BC ####[facility] Itpfopvnwd59[address] [place], [place] [address]Dr. Garima Pulliam MONO # 0.0 103/ul Critically low 0.3-0.8 The [facility] Comment on above: Performed By: #### C BC ####[facility] Sdqgefvifs4515 [place] [id number]. Garima Pulliam Monocytes/100 WBC (Bld) 0.4 % Critically low 1.7-12.0 [facility] Comment on above: Performed By: #### C BC ####[facility] Aweapzfjut2240 [place] [phone]. Garima Pulliam NEUT # 6.2 103/ul Normal 1.4-6.5 [facility] Comment on above: Performed By: #### C BC ####[facility] Agbkpajdhm7894 [place] [address]Dr. Garima Pulliam Neutrophils/100 WBC (Bld) 91.5 % Critically high 43.0-75.0 [facility] Comment on above: Performed By: #### C BC ####[facility] Nqhjbaovrp9552 [place] [address]Dr. Garima Pulliam Platelet mean volume (Bld) [Entitic vol] 8.7 fL Critically low 9.5-13.5 [facility] Comment on above: Performed By: #### C BC ####[facility] Qkexrzpcpm4537 [place] [address]Dr. Garima Pulliam PLT 179 103/ul Normal 150-450 [facility] Comment on above: Performed By: #### C BC ####[facility] Bhqswmmcyz5177 [place] [phone]. Garima Pulliam RBC 5.23 106/ul Normal 4.70-6.10 [facility] Comment on above: Performed By: #### C BC ####[facility] Kadvfveksj9206 [place] [address]Dr. Garima Pulliam WBC 6.7 103/ul Normal 4.0-11.0 [facility] Comment on above: Performed By: #### C BC ####[facility] Uvqxzfndow8586 [place] [address]Dr. Garima Pulliam PROF CHEM 8 (BAS METB)on Anion gap [Moles/Vol] 12.1 mmol/L Normal Th [facility] Comment on above: Performed By: #### B MP ####[facility] Vtpsofrcvd8797 [place] [phone]. Garima Pulliam Calcium [Mass/Vol] 8.7 mg/dL Normal 8.5-10.1 The [facility] Comment on above: Performed By: #### B MP ####[facility] Tphtziyxwt3733 [place] [phone]. Garima Pulliam Chloride [Moles/Vol] 105 mmol/L Normal 98-107 [facility] Comment on above: Performed By: #### B MP ####[facility] Huwfilgnja1103 [place] [phone]. Garima Pulliam CO2 [Moles/Vol] 25.5 mmol/L Normal 21.0-32.0 The [facility] Comment on above: Performed By: #### B MP ####[facility] Xleuzczdho7000 [place] [address]Dr. Garima Pulliam Creatinine [Mass/Vol] 0.63 mg/dL Critically low 0.70-1.30 [facility] Comment on above: Performed By: #### B MP ####[facility] Khydpdmwdj8917 [place] [address]Dr. Garima Pulliam EGFR-AF MACANESE >60 Normal >=60 The [facility] Comment on above: Performed By: #### B MP ####[facility] Qjnznviejj6348 [place] [address]Dr. Garima Pulliam EGFR-NON AF MACANESE >60 Normal >=60 [facility] Comment on above: Performed By: #### B MP ####[facility] Zoqbjjuzee0244 [place] [address]Dr. Garima Pulliam Glucose [Mass/Vol] 162 mg/dL Critically high 74-106 [facility] Comment on above: Performed By: #### B MP ####[facility] Qhcodiiopb4[address] [place], [place] [address]Dr. Garima Pulliam Potassium [Moles/Vol] 3.6 mmol/L Normal 3.5-5.1 [facility] Comment on above: Performed By: #### B MP ####[facility] Backtowcda97[address] [place], [place] [address]Dr. Garima Pulliam Sodium [Moles/Vol] 139 mmol/L Normal 136-145 [facility] Comment on above: Performed By: #### B DAVID ####[facility] Igskjodqmp7560 [place] [address]Dr. Garima Pulliam Urea nitrogen [Mass/Vol] 9.0 mg/dL Normal 7.0-18.0 [facility] Comment on above: Performed By: #### B DAVID ####[facility] Vnosdozgji4477 [place] [address]Dr. Garima Pulliam Urea nitrogen/Creatinine [Mass ratio] 14.3 mg/mg Normal [facility] Comment on above: Performed By: #### B DAVID ####[facility] Sozafugwfr[address] [place] [address]Dr. Chapisrenu Pulliam CARDIAC NASH ADMITon 09-12- 022 CK [Catalytic activity/Vol] 304 U/L Normal 39-308 [facility] Comment on above: Performed By: #### B NANCY HERNANDEZ ####[facility] Zjwyxvustp9016 [place] [address]Dr. Garima Pulliam CK.MB [Mass/Vol] 11.81 ng/mL Critically high <=3.60 Th [facility] Comment on above: Performed By: #### B NANCY HERNANDEZ ####[facility] Bixwddzwnu0931 [place] [address]Dr. Garima Heraclio HSTROP 13.3 pg/mL Normal 4.0-76.1 [facility] Comment on above: Result Comment: CUT- OFF POINTS HAVE BEEN ESTABLISHED BASED ON THE FOURTH UNIVERSAL DEFINITIONS OF MYOCARDIALINFARCTION. THE UPPER REFERENCE LIMIT (URL) OF TROPONIN, DEFINED THE 99TH PERCENTILE OFcTnI DISTRIBUTION IN A REFERENCE POPULATION, HAS BEEN CONFIRMED THE DECISION THRESHOLDFOR [place] DIAGNOSIS. Performed By: #### B NANCY HERNANDEZ ####[facility] Ijxnoqjkge5697 [place] [address]Dr. Garima Pulliam DORIS 133 ng/mL Critically high 16-96 [facility] Comment on above: Performed By: #### B NANCY HERNANDEZ ####[facility] Bvlxsujugg5730 [place] [address]Dr. Garima Pulliam CBC AUTO DIFFon 09-12-2022 BASO # 0.0 103/ul Normal 0.0-0.1 [facility] Comment on above: Performed By: #### C BC ####[facility] Wywxfwiloj[address] [place], [place] [address]Dr. Garima Heraclio Basophils/100 WBC (Bld) 0.2 % Normal 0.2-2.0 [facility] Comment on above: Performed By: #### C BC ####[facility] Bqkngnklrr37[address] [place], [place] [address]Dr. Garima Heraclio EO # 0.2 103/ul Normal 0.0-0.7 [facility] Comment on above: Performed By: #### C BC ####[facility] Mdwlibylcm95[address] [place], [place] [address]Dr. Chapisrenu Pulliam Eosinophils/100 WBC (Bld) 1.3 % Normal 0.9-7.0 [facility] Comment on above: Performed By: #### C BC ####[facility] Ziaseuqliu604[address] [place], [place] [address]Dr. Garima Pulliam Erythrocyte distribution width (RBC) [Ratio] 13.7 % Normal 11.0-15.0 [facility] Comment on above: Performed By: #### C BC ####[facility] Ylvyapprfu74[address] [place], [place] [address]Dr. Garima Pulliam Hematocrit (Bld) [Volume fraction] 46.4 % Normal 42.0-54.0 [facility] Comment on above: Performed By: #### C BC ####[facility] Qhedebiwkz8[address] [place], [place] [address]Dr. Garima Pulliam Hemoglobin (Bld) [Mass/Vol] 15.7 g/dL Normal 14.0-18.0 [facility] Comment on above: Performed By: #### C BC ####[facility] Gmdzqziuht[address] [place], [place] [address]Dr. Garima Pulliam IG # 0.04 10e3/ul Critically high 0.00-0.03 [facility] Comment on above: Performed By: #### C BC ####[facility] Oyycllomtg2599 [place] [phone]. Garima Pulliam IG % 0.3 % Normal 0.0-0.5 [facility] Comment on above: Performed By: #### C BC ####[facility] Sewucdawrr5453 [place] [phone]. Garima Pulliam LYMPH # 1.7 103/ul Normal 1.2-3.8 [facility] Comment on above: Performed By: #### C BC ####[facility] Pbggmlxene6419 [place] [id number]. Garima Pulliam Lymphocytes/100 WBC (Bld) 11.5 % Critically low 20.5-60.0 [facility] Comment on above: Performed By: #### C BC ####[facility] Wflugrumgh3757 [place] [id number]. Garima Pulliam MANUAL DIFF REQ NO Normal [facility] Comment on above: Performed By: #### C BC ####[facility] Qsbtbrwnbz1527 [place] [phone]. Garima Pulliam MCH (RBC) [Entitic mass] 31.0 pg Normal 25.9-34.0 [facility] Comment on above: Performed By: #### C BC ####[facility] Mvhfaxctqo9337 [place] [id number]. Garima Pulliam MCHC (RBC) [Mass/Vol] 33.8 g/dL Normal 29.9-35.2 [facility] Comment on above: Performed By: #### C BC ####[facility] Rwiiotpstu5592 [place] [phone]. Garima Pulliam MCV (RBC) [Entitic vol] 91.7 fL Normal 80.0-94.0 [facility] Comment on above: Performed By: #### C BC ####[facility] Xzvhgxlnvr3103 [place] [id number]. Garima Heraclio MONO # 0.8 103/ul Normal 0.3-0.8 [facility] Comment on above: Performed By: #### C BC ####[facility] Dnapxhgfjr7078 [place] [id number]. Garima Pulliam Monocytes/100 WBC (Bld) 5.2 % Normal 1.7-12.0 [facility] Comment on above: Performed By: #### C BC ####[facility] Axmectwdah7121 [place] [id number]. Garima Pulliam NEUT # 11.7 103/ul Critically high 1.4-6.5 The [facility] Comment on above: Performed By: #### C BC ####[facility] Tvsrjfjzre8963 [place] [phone]. Garima Pulliam Neutrophils/100 WBC (Bld) 81.5 % Critically high 43.0-75.0 [facility] Comment on above: Performed By: #### C BC ####[facility] Mcvrtprpca8553 [place] [address]Dr. Garima Pulliam Platelet mean volume (Bld) [Entitic vol] 8.6 fL Critically low 9.5-13.5 [facility] Comment on above: Performed By: #### C BC ####[facility] Lsnjhksxay1810 [place] [id number]. Garima Pulliam PLT 191 103/ul Normal 150-450 [facility] Comment on above: Performed By: #### C BC ####[facility] [address]mpqidpqhu[address] [place], [place] [address]Dr. Garima Pulliam RBC 5.06 106/ul Normal 4.70-6.10 [facility] Comment on above: Performed By: #### C BC ####[facility] Ikkysyaluw[address] [place], [place] [address]Dr. Garima Pulliam WBC 14.4 103/ul Critically high 4.0-11.0 The [facility] Comment on above: Performed By: #### C BC ####[facility] Jcvsntujyg[address] [place], [place] [address]Dr. Garima Pulliam [facility]on 08-24 SARS-CoV-2 (COVID-19) RNA MARIE+probe Ql (Unsp spec) Not detected Normal NOT DETECTED [facility] Comment on above: Result Comment: When [...] for this test is supported by the [place] of Health and Human Service's declaration that [...] Performed By: #### C VDTBH ####[facility] Vesumldgbv[address] [place], [place] [address]Dr. Garima Pulliam LACTATE/LACTIC ACIDon 2021 Lactate [Moles/Vol] 1.0 mmol/L Normal 0.4-1.9 [facility] Comment on above: Performed By: #### L ACT ####[facility] Ziwntveszn8[address] [place], [place] [address]Dr. Garima Pulliam PROF CHEM 8 (BAS METB)on Anion gap [Moles/Vol] 11.6 mmol/L Normal [facility] Comment on above: Performed By: #### B NANCY HERANNDEZ ####[facility] Shdkwyfbar9580 [place] [address]Dr. Garima Pulliam Calcium [Mass/Vol] 9.2 mg/dL Normal 8.5-10.1 [facility] Comment on above: Performed By: #### B NANCY HERNANDEZ ####[facility] Tugogwhplg4427 [place] [address]Dr. Garima Pulliam Chloride [Moles/Vol] 105 mmol/L Normal 98-107 [facility] Comment on above: Performed By: #### B MP, CMADM ####[facility] Blzqspkouq6093 [place] [phone]. Garima Pulliam CO2 [Moles/Vol] 25.9 mmol/L Normal 21.0-32.0 [facility] Comment on above: Performed By: #### B DAVID, CMADM ####[facility] Mlcqullxaz3374 [place] [address]Dr. Garima Pulliam Creatinine [Mass/Vol] 0.72 mg/dL Normal 0.70-1.30 [facility] Comment on above: Performed By: #### B DAVID, CMADM ####[facility] Oqjxdgkwwr4062 [place] [id number]. Garima Pulliam EGFR-AF MACANESE >60 Normal >=60 [facility] Comment on above: Performed By: #### B DAVID, CMADM ####[facility] Ztmusgfclk8501 [place] [address]Dr. Chapisrenu Pulliam EGFR-NON AF MACANESE >60 Normal >=60 [facility] Comment on above: Performed By: #### B DAVID, CMAANA ROSA ####[facility] Rovjjixzox4457 [place] [address]Dr. Garima Pulliam Glucose [Mass/Vol] 111 mg/dL Critically high 74-106 [facility] Comment on above: Performed By: #### B DAVID, CMADM ####[facility] Oremytwkri6015 [place] [address]Dr. Chapisrenu Pulliam Potassium [Moles/Vol] 3.5 mmol/L Normal 3.5-5.1 [facility] Comment on above: Performed By: #### B DAVID, CMADM ####[facility] Rsrnqksyla9295 [place] [address]Dr. Chapisrenu Pulliam Sodium [Moles/Vol] 139 mmol/L Normal 136-145 [facility] Comment on above: Performed By: #### B DAVID, CMADM ####[facility] Vzeytwgboy4195 [place] [address]Dr. Garima Pulliam Urea nitrogen [Mass/Vol] 7.0 mg/dL Normal 7.0-18.0 [facility] Comment on above: Performed By: #### B DAVID, CMADM ####[facility] Ulnlqkvyrf8685 [place], [place] [address]Zl. Garima Pulliam Urea nitrogen/Creatinine [Mass ratio] 9.7 mg/mg Normal [facility] Comment on above: Performed By: #### B MP, CMADM ####[facility] Sykwuszskd1806 [place], [place] [address]Jc. Garima Pulliam XR CHEST 1 Von 09-12-2022 XR CHEST 1 V Normal [facility] Encounters Encounter Date Encounter Type Care Provider [...] Facility:H1 Payers Date Payer Category Payer Unknown [id number] 1960 Medicaid [id number] 1960 Unknown [id number] 1960 Unknown [id number] 1954 Unknown [id number] 2.16.84 [id number] 1954 Unknown [id number] 2.16.84 [id number] 1954 Unknown [id number] 2.16.84 [id number] 1954 Unknown [id number] 2.16.84 [id number] 1954 Unknown [id number] 2.16.84 [id number] 1954 Unknown [id number] 2.16.84 [id number] 1954 Unknown [id number] 2.16.84 [id number] 1954 Unknown [id number] 2.16.84 [id number] 1955 Unknown [id number] 2.16.84 0.1.559254.3.579.2.593 1955 Unknown [id number] 2.16.84 0.1.264473.3.579.2.593 1955 Unknown [id number] 2.16.84 0.1.474621.3.579.2.593 1955 Unknown [id number] 2.16.84 0.1.887087.3.579.2.593 1955 Unknown [id number] 2.16.84 0.1.199234.3.579.2.593 1955 Unknown [id number] 2.16.84 0.1.504227.3.579.2.593 1955 Unknown [id number] 2.16.84 0.1.709129.3.579.2.593 1955 Unknown [id number] 2.16.84 0.1.984134.3.579.2.593 1955 Unknown [id number] 2.16.84 0.1.368516.3.579.2.593 1955 Unknown [id number] 2.16.84 0.1.441811.3.579.2.593 1955 Unknown [id number] 2.16.84 0.1.474247.3.579.2.593 1955 Unknown [id number] 2.16.84 0.1.091556.3.579.2.593 Summary Purpose Family History No Family History Records Found Advance Directives No Advanced Directives Records Found Additional Source Comments (unrecognized sect ion and content) No Status Records Found INFORMATION SOURCE (unrecogn ized section and content) DATE CREATED AUTHOR 04/08/2023 [facility] FOR RECORDS PERTAINING TO PATIENTS [...] THE PRIMARY CLINICAL RECORDS. [facility] my[employer] [facility]. provides no warranty or guarantee of the accuracy or completeness of information in this document.
--- NOTE | 2024-05-27 18:21 | ED_ITS ---
HPI - SOB/Dyspnea General Chief Complaint: Shortness of Breath/Dyspnea Stated Complaint: sob Time Seen by Provider: 05/27/24 18:17 History of Present Illness HPI Narrative: This patient returned to the emergency room again today after multiple previous ER visits. He was seen yesterday he was treated but we did suggest a CT scan and refused to have that done. His venous pH and CO2 were within normal parameters. His chest x-ray did not show any acute findings he was not hypoxemic. He was not hypercarbic. He is known to be noncompliant. He continues to use tobacco products. He has been wanting home oxygen but as we indicated him numerous times in the past that cannot really be arranged in the ER and he needs to meet parameters which she has not met clinically. He was sitting outside in the extreme heat conditions smoking when he had a flareup again today. He knows he should not do that. Additionally he shared with us today that his 52-year-old father of lung cancer from tobacco products and he does not know why he ever started smoking. Related Data Home Medications ?Medication ?Instructions ?Recorded ?Confirmed albuterol sulfate 90 mcg/actuation 2 inh inhalation Q6H PRN shortness 03/13/24 05/26/24 aerosol inhaler of breath or wheezing Previous Rx's ?Medication ?Instructions ?Recorded losartan 100 mg tablet 100 mg PO DAILY #30 tabs 12/27/23 albuterol sulfate 2.5 mg/3 mL 2.5 mg (3 mL) inhalation Q6H PRN 05/26/24 (0.083 %) solution for nebulization shortness of breath or wheezing #90 mL Allergies Allergy/AdvReac Type Severity Reaction Status Date / Time No Known Drug Allergies Allergy Verified 05/14/24 20:54 [facility] Medical History (Updated 05/27/24 @ 18:36 by Fabricio Byrd MD) Hypokalemia ?E87.6 - Hypokalemia (ICD-10) New onset type 2 diabetes mellitus ?E11.9 - Type 2 diabetes mellitus without complications (ICD-10) Lower extremity edema ?R60.0 - Localized edema (ICD-10) Edema ?R60.9 - Edema, unspecified (ICD-10) Acute hyperglycemia ?R73.9 - Hyperglycemia, unspecified (ICD-10) Tobacco abuse ?Z72.0 - Tobacco use (ICD-10) HTN (hypertension) ?I10 - Essential (primary) hypertension (ICD-10) Community acquired pneumonia ?J18.9 - Pneumonia, unspecified organism (ICD-10) Chronic obstructive pulmonary disease ?J44.9 - Chronic obstructive pulmonary disease, unspecified (ICD-10) Acute exacerbation of chronic obstructive pulmonary disease (COPD) ?J44.1 - Chronic obstructive pulmonary disease with (acute) exacerbation (ICD-10) RLL pneumonia ?J18.9 - Pneumonia, unspecified organism (ICD-10) COPD (chronic obstructive pulmonary disease) ?J44.9 - Chronic obstructive pulmonary disease, unspecified (ICD-10) Surgical History (Updated 01/29/24 @ 06:45 by Latonia Martin RN) Hx of tonsillectomy ?Z90.89 - Acquired absence of other organs (ICD-10) Family History (Updated 12/25/23 @ 21:28 by Kym Ordaz) Mother Family history of cancer Family history of hypertension Father Family history of cancer Social History Within the past year, how often did you have a drink containing alcohol: 4 or more times a week Within the past year, how many standard drinks containing alcohol did you have on a typical day: 3 or 4 Within the past year, how often did you have six or more drinks on one occasion: less than monthly Total score: 3 Score interpretation: A score of 4 or more indicates drinking is likely to affect patient's safety. Smoking status: Current every day smoker Non-prescribed substance use: cannabis (any form) Previous occupational history: retired Highest level of school completed/degree received: high school graduate Are you now , , , , never or living with a partner: In a typical week, how many times do you talk on the telephone with family, friends, or neighbors: twice per week How often do you get together with friends or relatives: once per week How often do you attend mandaen or worship services: never Do you belong to any clubs or organizations such as mandaen groups unions, fraternal or athletic groups, or school groups: no Total score: 1 Score interpretation: A score of less than or equal to 1 indicates the most socially isolated. Little interest or pleasure in doing things: several days Feeling down, depressed, or hopeless: not at all Feel stressed/tense/nervous/anxious/difficulty sleeping: not at all Do you think of yourself as: straight/heterosexual Gender Identity: male Exam Narrative Exam Narrative: Workup today ,, vital signs are stable pulse ox 94% on room air. He is able to complete sentences have conversations and is get a good sense of humor. His pulse is 99. His skin is warm and dry mucous memories are moist and pink no evidence of dehydration. Lungs show decreased aeration bilaterally but no new or specific concerning findings. Heart rate and rhythm are normal. His legs do not show evidence of phlebitis edema or cellulitis. Cognition and mentation are normal I do not believe he is hypercarbic. He is not somnolent or lethargic. MDM - SOB/Dyspnea MDM Narrative Medical decision making narrative: As noted yesterday we wanted to get a screening CT since he has not had one for 8 years. He will be given a nebulizer treatment. He was given steroids yesterday. He says he is got give more effort into trying to stop smoking because I indicated to him that every time he lights up a cigarette he is likely to have hypoxemia. Yesterday's labs shows that he was not hypercarbic or respiratory acidotic. Care will be turned over to Dr. Andrade at the change of shift. He has agreed to stay for a CT scan today. Discharge Plan Discharge Chief Complaint: Shortness of Breath/Dyspnea Clinical Impression: Acute exacerbation of chronic obstructive pulmonary disease Patient Disposition: Still a Patient Prescriptions / Home Meds: No Action losartan 100 mg tablet 100 mg PO DAILY Qty: 30 11RF albuterol sulfate 90 mcg/actuation HFA aerosol inhaler 2 inh inhalation Q6H PRN (Reason: shortness of breath or wheezing) albuterol sulfate 2.5 mg /3 mL (0.083 %) solution for nebulization 2.5 mg inhalation Q6H PRN (Reason: shortness of breath or wheezing) Qty: 90 0RF Print Language: Citizen Of [place] Referrals: SERG DUENAS [Primary Care Provider] - 1 week
--- NOTE | 2024-05-27 18:24 | CT_ITS ---
The [address] [address] Patient Name: CONSTANZA BARRETO MRN: [id number] date: 1955 Sex: M Assigned Patient Location: ED.MAIN Current Patient Location: Accession/Order Number: [id number] Exam Date: 05/27/2024 19:09 Report Date: 05/27/2024 19:39 At the request of: ANIYAH LEO Procedure: CT chest wo con EXAM: CT scan of the chest without contrast. Dose reduction technique used: Automated exposure control and/or adjustment of the mA and/or kV according to patient size and/or use of iterative reconstruction technique. REASON FOR EXAM: Shortness of breath/CT screening lung malignancy COMPARISON: None FINDINGS: No acute airspace opacities. No pneumothorax. No pleural effusion. No acute fractures. No concerning pulmonary nodules. No definite lymphadenopathy in the chest. Pancreatic parenchymal calcifications compatible with chronic pancreatitis. Low-attenuation left adrenal nodule measuring 4.0 x 2.1 cm where visible. Right adrenal low-attenuation nodule measuring 1.9 x 1.0 cm where visible. These have been present since 2009 and are likely benign. Multiple old left rib fractures. Coronary atherosclerotic calcifications are present. Remainder unremarkable. CT/CT chest wo con IMPRESSION: 1. No acute abnormalities in the chest. 2. No concerning pulmonary nodules. Lung RADS category 1. Electronically authenticated by: CARLITO IQBAL Date: 05/27/2024 19:39
--- NOTE | 2024-05-27 18:24 | ECG_ITS ---
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
[2024-05-27 18:42] LABS: Basophils Percent Auto 0.3 % (0.2-2.0); Eosinophils Percent Auto 0.3 % (0.9-7.0); Hemoglobin 15.1 g/dL (14.0-18.0); Immature Granulocytes Abs Auto 0.03 10^3/uL (0.00-0.03); Immature Granulocytes Pct Auto 0.3 % (0.0-0.5); Lymphocytes Absolute Auto 2.4 10^3/uL (1.2-3.8); Lymphocytes Percent Auto 20.2 % (20.5-60.0); Mean Corpuscular HGB Conc 34.3 g/dL (29.9-35.2); Mean Corpuscular Volume 87.3 fL (80.0-94.0); Mean Platelet Volume 8.8 fL (9.5-13.5); Monocytes Percent Auto 8.8 % (1.7-12.0); Neutrophils Absolute Auto 8.3 10^3/uL (1.4-6.5); Neutrophils Percent Auto 70.1 % (43.0-75.0); Platelet Count 217 10^3/uL (150-450); Red Blood Count 5.04 10^6/uL (4.70-6.10); Red Cell Distribution Width 13.7 % (11.0-15.0); White Blood Count 11.8 10^3/uL (4.0-11.0)
[2024-05-27] MEDS: IPRATROPIUM/ALBUTEROL SULFATE 3 ML AMPUL.NEB IH (18:45)
[2024-05-27 18:54] LABS: Anion Gap 9.2; BUN Creatinine Ratio 14.1; Calcium 9.4 mg/dL (8.5-10.1); Chloride 100 mmol/L (98-107); Estimated GFR (African America >60 (>=60); Estimated GFR (Non-African Ame >60 (>=60); Glucose 311 mg/dL (74-106); Potassium 3.2 mmol/L (3.5-5.1); Sodium 136 mmol/L (136-145)
--- NOTE | 2024-05-27 19:47 | ED.SOB1 ---
HPI - SOB/Dyspnea General Chief Complaint: Shortness of Breath/Dyspnea Stated Complaint: sob Time Seen by Provider: 05/27/24 18:17 Source: patient Mode of arrival: Wheelchair Limitations: no limitations History of Present Illness HPI Narrative: 68-year-old male presented to the emergency department and was initially seen by Dr. Byrd and signed out to me after discussing the case with him thoroughly. Please see his full history and physical exam. Related Data Home Medications ?Medication ?Instructions ?Recorded ?Confirmed albuterol sulfate 90 mcg/actuation 2 inh inhalation Q6H PRN shortness 03/13/24 05/26/24 aerosol inhaler of breath or wheezing Previous Rx's ?Medication ?Instructions ?Recorded losartan 100 mg tablet 100 mg PO DAILY #30 tabs 12/27/23 albuterol sulfate 2.5 mg/3 mL 2.5 mg (3 mL) inhalation Q6H PRN 05/26/24 (0.083 %) solution for nebulization shortness of breath or wheezing #90 mL Allergies Allergy/AdvReac Type Severity Reaction Status Date / Time No Known Drug Allergies Allergy Verified 05/14/24 20:54 [facility] Medical History (Updated 05/27/24 @ 18:36 by Fabricio Byrd MD) Hypokalemia ?E87.6 - Hypokalemia (ICD-10) New onset type 2 diabetes mellitus ?E11.9 - Type 2 diabetes mellitus without complications (ICD-10) Lower extremity edema ?R60.0 - Localized edema (ICD-10) Edema ?R60.9 - Edema, unspecified (ICD-10) Acute hyperglycemia ?R73.9 - Hyperglycemia, unspecified (ICD-10) Tobacco abuse ?Z72.0 - Tobacco use (ICD-10) HTN (hypertension) ?I10 - Essential (primary) hypertension (ICD-10) Community acquired pneumonia ?J18.9 - Pneumonia, unspecified organism (ICD-10) Chronic obstructive pulmonary disease ?J44.9 - Chronic obstructive pulmonary disease, unspecified (ICD-10) Acute exacerbation of chronic obstructive pulmonary disease (COPD) ?J44.1 - Chronic obstructive pulmonary disease with (acute) exacerbation (ICD-10) RLL pneumonia ?J18.9 - Pneumonia, unspecified organism (ICD-10) COPD (chronic obstructive pulmonary disease) ?J44.9 - Chronic obstructive pulmonary disease, unspecified (ICD-10) Surgical History (Updated 01/29/24 @ 06:45 by Latonia Martin RN) Hx of tonsillectomy ?Z90.89 - Acquired absence of other organs (ICD-10) Family History (Updated 12/25/23 @ 21:28 by Kym Ordaz) Mother Family history of cancer Family history of hypertension Father Family history of cancer Social History Within the past year, how often did you have a drink containing alcohol: 4 or more times a week Within the past year, how many standard drinks containing alcohol did you have on a typical day: 3 or 4 Within the past year, how often did you have six or more drinks on one occasion: less than monthly Total score: 3 Score interpretation: A score of 4 or more indicates drinking is likely to affect patient's safety. Smoking status: Current every day smoker Non-prescribed substance use: cannabis (any form) Previous occupational history: retired Highest level of school completed/degree received: high school graduate Are you now , , , , never or living with a partner: In a typical week, how many times do you talk on the telephone with family, friends, or neighbors: twice per week How often do you get together with friends or relatives: once per week How often do you attend quaker or confucianist services: never Do you belong to any clubs or organizations such as quaker groups unions, fraternal or athletic groups, or school groups: no Total score: 1 Score interpretation: A score of less than or equal to 1 indicates the most socially isolated. Little interest or pleasure in doing things: several days Feeling down, depressed, or hopeless: not at all Feel stressed/tense/nervous/anxious/difficulty sleeping: not at all Do you think of yourself as: straight/heterosexual Gender Identity: male Exam Constitutional Vital Signs, click to edit/add: Last Vital Signs Temp 98.2 F 05/27/24 18:20 Pulse 100 H 05/27/24 19:20 Resp 18 05/27/24 19:20 BP 171/94 H 05/27/24 18:20 Pulse Ox 94 L 05/27/24 19:20 O2 Del Method Room Air 05/27/24 18:49 Course Vital Signs Vital signs: Vital Signs Temperature 98.2 F 05/27/24 18:20 Pulse Rate 99 H 05/27/24 18:20 Respiratory Rate 20 05/27/24 18:20 Blood Pressure 171/94 H 05/27/24 18:20 Pulse Oximetry 94 L 05/27/24 18:20 Oxygen Delivery Method Room Air 05/27/24 18:20 Temperature 98.2 F 05/27/24 18:20 Pulse Rate 100 H 05/27/24 19:20 Respiratory Rate 18 05/27/24 19:20 Blood Pressure 171/94 H 05/27/24 18:20 Pulse Oximetry 94 L 05/27/24 19:20 Oxygen Delivery Method Room Air 05/27/24 18:49 MDM - SOB/Dyspnea MDM Narrative Medical decision making narrative: CT scan is negative, no evidence of PE or pneumonia or pneumothorax. He is feeling much better and will be discharged home. Treatment diagnosis and follow-up were discussed with the patient. Differential Diagnosis Differential diagnosis: Likely acute exacerbation of chronic obstructive airways disease, congestive heart failure, community acquired pneumonia and pulmonary embolism Lab Data Attestation: I reviewed the patient's lab results. Labs: Lab Results 05/27/24 Range/Units 18:37 WBC 11.8 H (4.0-11.0) 10^3/uL RBC 5.04 (4.70-6.10) 10^6/uL Hgb 15.1 (14.0-18.0) g/dL Hct 44.0 (42.0-54.0) % MCV 87.3 (80.0-94.0) fL MCH 30.0 (25.9-34.0) pg MCHC 34.3 (29.9-35.2) g/dL RDW 13.7 (11.0-15.0) % Plt Count 217 (150-450) 10^3/uL MPV 8.8 L (9.5-13.5) fL Neut % (Auto) 70.1 (43.0-75.0) % Lymph % (Auto) 20.2 L (20.5-60.0) % Moca % (Auto) 8.8 (1.7-12.0) % Eos % (Auto) 0.3 L (0.9-7.0) % Baso % (Auto) 0.3 (0.2-2.0) % Neut # (Auto) 8.3 H (1.4-6.5) 10^3/uL Lymph # (Auto) 2.4 (1.2-3.8) 10^3/uL Moca # (Auto) 1.0 H (0.3-0.8) 10^3/uL Eos # (Auto) 0.0 (0.0-0.7) 10^3/uL Baso # (Auto) 0.0 (0.0-0.1) 10^3/uL Abs Immat Gran (auto) 0.03 (0.00-0.03) 10^3/uL Imm/Tot Granulo (auto) 0.3 (0.0-0.5) % Sodium 136 (136-145) mmol/L Potassium 3.2 L (3.5-5.1) mmol/L Chloride 100 (98-107) mmol/L Carbon Dioxide 30.0 (21.0-32.0) mmol/L Anion Gap 9.2 BUN 12.0 (7.0-18.0) mg/dL Creatinine 0.85 (0.70-1.30) mg/dL Est GFR ( Amer) >60 (>=60) Est GFR (Non-Af Amer) >60 (>=60) BUN/Creatinine Ratio 14.1 Glucose 311 H (74-106) mg/dL Calcium 9.4 (8.5-10.1) mg/dL Imaging Data CT scan - chest: Radiologist's impression: ITS Impressions Chest CT 05/27/24 18:24 IMPRESSION: 1. No acute abnormalities in the chest. 2. No concerning pulmonary nodules. Lung RADS category 1. Electronically authenticated by: CARLITO IQBAL Date: 05/27/2024 19:39 Discharge Plan Discharge Stand Alone Forms: Portal Instructions Chief Complaint: Shortness of Breath/Dyspnea Clinical Impression: Acute exacerbation of chronic obstructive pulmonary disease Patient Disposition: Home, Self-Care Time of Disposition Decision: 19:46 Condition: Good Mode of Transportation: Private Vehicle Prescriptions / Home Meds: No Action losartan 100 mg tablet 100 mg PO DAILY Qty: 30 11RF albuterol sulfate 90 mcg/actuation HFA aerosol inhaler 2 inh inhalation Q6H PRN (Reason: shortness of breath or wheezing) albuterol sulfate 2.5 mg /3 mL (0.083 %) solution for nebulization 2.5 mg inhalation Q6H PRN (Reason: shortness of breath or wheezing) Qty: 90 0RF Print Language: Finnish Instructions: COPD (Chronic Obstructive Pulmonary Disease) (ED) Referrals: SERG DUENAS [Primary Care Provider] - 1 week
== END 2024-05-27 19:55 | disposition home or self-care (01) ==
PROVIDERS: Emergency Medicine Emergency Medical Services; Emergency Provider Emergency Medicine
DX: J44.1 Chronic obstructive pulmonary disease with (acute) exacerbation (principal); F17.200 Nicotine dependence, unspecified, uncomplicated
CPT/HCPCS: 36415; 71250; 80048; 85025; 93005; 94640; 99285

== ENCOUNTER 2024-05-30 00:35 | Emergency (ER) | payer MEDICARE, SELFPAY ==
[2024-05-30 00:41] VITALS: BP 187/97; PULSE 90; TEMP 37.7; O2SAT 92; BMI 24.4
--- OUTSIDE RECORDS SUMMARY | 2024-05-30 00:58 | XMS_ITS | CCD ---
Author Organization [facility] CliniSyoh Care Team Providers Care Director Cardiovascular Name Role Phone REQUEST, DR NONE LISTED [...] DR REDDING Consulting Unavailable MARKER ., DR REDIDNG Admitting Unavailable REQUEST, NONE LISTED Primary Care [...] (1 source) Penicillin Drug Allergy [facility] Repository Problems Active Problems Problem Classification [...] skilled nursing (current) drug therapy; Translations: [OTH JAIL CURRENT [...] # 0.0 103/ul Normal 0.0-0.[address] [facility] Comment on above: Performed By: #### C BC ####[facility] Jliezekhqi112[address] [place] [address]Dr. Garima Pulliam Basophils/100 WBC (Bld) 0.3 % Normal 0.2-2.[address] [facility] Comment on above: Performed By: #### C BC ####[facility] Uuhcaiqiwn8854 [place] [address]DrAdalberto Pulliam EO # 0.3 103/ul Normal 0.0-0.[address] [facility] Comment on above: Performed By: #### C BC ####[facility] Bfrbsqzryq[address] [place], [place] [address]Dr. Garima Pulliam Eosinophils/100 WBC (Bld) 2.8 % Normal 0.9-7.[address] [facility] Comment on above: Performed By: #### C BC ####[facility] Lzcrxujddp0177 [place] [address]Dr. Garima Pulliam Erythrocyte distribution width (RBC) [Ratio] 13.4 % Normal 11.0-15.[address] [facility] Comment on above: Performed By: #### C BC ####[facility] Mgycvqsemb1500 [place] [address]Dr. Garima Pulliam Hematocrit (Bld) [Volume fraction] 45.7 % Normal 42.0-54.[address] [facility] Comment on above: Performed By: #### C BC ####[facility] Eaiftikets5699 [place] [address]Dr. Garima Pulliam Hemoglobin (Bld) [Mass/Vol] 15.2 g/dL Normal 14.0-18.[address] [facility] Comment on above: Performed By: #### C BC ####[facility] Pgfbvoddzg2370 [place] [address]Dr. Garima Pulliam IG # 0.02 10e3/ul Normal 0.00-0.[address] [facility] Comment on above: Performed By: #### C BC ####[facility] Brpnimlste2830 [place] [address]Dr. Garima Pulliam IG % 0.2 % Normal 0.0-0.[address] [facility] Comment on above: Performed By: #### C BC ####[facility] Bnozwnkoru5627 [place] [address]Dr. Garima Pulliam LYMPH # 2.1 103/ul Normal 1.2-3.[address] [facility] Comment on above: Performed By: #### C BC ####[facility] Ivmfjbfekb4401 [place] [address]Dr. Garima Pulliam Lymphocytes/100 WBC (Bld) 23.7 % Normal 20.5-60.[address] [facility] Comment on above: Performed By: #### C BC ####[facility] Ofhhhtalxt4955 [place] [address]Dr. Garima Heraclio MANUAL DIFF REQ NO Normal [facility] Comment on above: Performed By: #### C BC ####[facility] Jthsistrek4712 [place] [address]Dr. Garima Pulliam MCH (RBC) [Entitic mass] 30.4 pg Normal 25.9-34.[address] [facility] Comment on above: Performed By: #### C BC ####[facility] Dztbicsqcp1589 [place] [address]Dr. Garima Heraclio MCHC (RBC) [Mass/Vol] 33.3 g/dL Normal 29.9-35.[address] [facility] Comment on above: Performed By: #### C BC ####[facility] Dswemdjkzs[address] [place], [place] [address]Dr. Chapisrenu Pulliam MCV (RBC) [Entitic vol] 91.4 fL Normal 80.0-94.[address] [facility] Comment on above: Performed By: #### C BC ####[facility] Vbibgqbcpy[address] [place], [place] [address]Dr. Garima Heraclio MONO # 0.7 103/ul Normal 0.3-0.[address] [facility] Comment on above: Performed By: #### C BC ####[facility] Zninjnfigv64[address] [place], [place] [address]Dr. Chapisrenu Pulliam Monocytes/100 WBC (Bld) 8.3 % Normal 1.7-12.[address] [facility] Comment on above: Performed By: #### C BC ####[facility] Xhcdppscks6149 [place] [address]Dr. Chapisrenu Heraclio NEUT # 5.8 103/ul Normal 1.4-6.[address] [facility] Comment on above: Performed By: #### C BC ####[facility] Cquvytqqsk[address] [place], [place] [address]Dr. Garima Pulliam Neutrophils/100 WBC (Bld) 64.7 % Normal 43.0-75.[address] [facility] Comment on above: Performed By: #### C BC ####[facility] Babtfdgcvu8734 [place] [address]Dr. Garima Pulliam Platelet mean volume (Bld) [Entitic vol] 8.6 fL Critically low 9.5-13.5 [facility] Comment on above: Performed By: #### C BC ####[facility] Lmalejtied3632 [place] [address]Dr. Garima Pulliam PLT 230 103/ul Normal 150-[address] [facility] Comment on above: Performed By: #### C BC ####[facility] Nzimdzlrue8884 [place] [address]Dr. Chapisrenu Heraclio RBC 5.00 106/ul Normal 4.70-6.10 [facility] Comment on above: Performed By: #### C BC ####[facility] Qkjjhhnkni6706 [place] [address]Dr. Garima Heraclio WBC 9.0 103/ul Normal 4.0-11.[address] [facility] Comment on above: Performed By: #### C BC ####[facility] Ptvcctboaa3091 [place] [address]Dr. Garima Pulliam MAGNESIUMon 04-04-2023 Magnesium [Mass/Vol] 1.8 mg/dL Normal 1.8-2.4 [facility] Comment on above: Performed By: #### M G ####[facility] Djlmwdjxgx5240 [place] [address]Dr. Chapisrenu Pulliam PROF 14(COMP METB)on 023 Albumin [Mass/Vol] 3.8 g/dL Normal 3.4-5.0 [facility] Comment on above: Performed By: #### C MP ####[facility] Hnoutfotyc6802 [place] [address]Dr. Garima Pulliam Albumin/Globulin [Mass ratio] 1.2 {ratio} Normal [facility] Comment on above: Performed By: #### C MP ####[facility] Zrqrjnvkrl1271 [place] [address]Dr. Garima Heraclio ALP [Catalytic activity/Vol] 84 U/L Normal 46-[address] [facility] Comment on above: Performed By: #### C MP ####[facility] Gzciotrkiq7279 [place] [id number]. Garima Pulliam ALT [Catalytic activity/Vol] 31 U/L Normal 16-[address] [facility] Comment on above: Performed By: #### C MP ####[facility] Wcvnrttgyb8669 [place] [address]Dr. Garima Pulliam Anion gap [Moles/Vol] 12.2 mmol/L Normal [facility] Comment on above: Performed By: #### C MP ####[facility] Ecuuupkdwx6171 [place] [address]Dr. Garima Pulliam AST [Catalytic activity/Vol] 23 U/L Normal 15-[address] [facility] Comment on above: Performed By: #### C MP ####[facility] Etaobnjheb799[address] [place], [place] [address]Dr. Garima Pulliam Bilirubin [Mass/Vol] 0.5 mg/dL Normal 0.2-1.[address] [facility] Comment on above: Performed By: #### C MP ####[facility] Ugmifhbvqa77[address] [place], [place] [address]Dr. Garima Pulliam Calcium [Mass/Vol] 9.2 mg/dL Normal 8.5-10.1 [facility] Comment on above: Performed By: #### C MP ####[facility] Yphthmwonz3004[address] [place], [place] [address]Dr. Garima Pulliam Chloride [Moles/Vol] 103 mmol/L Normal 98-[address] [facility] Comment on above: Performed By: #### C MP ####[facility] Dnczbrhffb5794 [place] [address]Dr. Garima Pulliam CO2 [Moles/Vol] 28.5 mmol/L Normal 21.0-32.0 [facility] Comment on above: Performed By: #### C MP ####[facility] Ncyvifhglh778[address] [place], [place] [address]Dr. Garima Pulliam Creatinine [Mass/Vol] 0.74 mg/dL Normal 0.70-1.30 [facility] Comment on above: Performed By: #### C MP ####[facility] Hoggsawllf4302 [place] [id number]. Garima Pulliam EGFR-AF BRAZILIAN >60 Normal >=60 [facility] Comment on above: Performed By: #### C MP ####[facility] Tlrcfpmixp1408 [place] [address]Dr. Garima Heraclio EGFR-NON AF BRAZILIAN >60 Normal >=[address] [facility] Comment on above: Performed By: #### C MP ####[facility] Cmyelbtjna6923 [place] [id number]. Garima Heraclio Globulin (S) [Mass/Vol] 3.1 g/dL Normal [facility] Comment on above: Performed By: #### C MP ####[facility] Ydrkkldmyl2237[address] [place], [place] [address]Dr. Garima Heraclio Glucose [Mass/Vol] 93 mg/dL Normal 74-[address] [facility] Comment on above: Performed By: #### C MP ####[facility] Joairuomvy9674[address] [place], [place] [address]Dr. Garima Heraclio Potassium [Moles/Vol] 3.7 mmol/L Normal 3.5-5.[address] [facility] Comment on above: Performed By: #### C MP ####[facility] Sgtpoikyny4039[address] [place], [place] [address]Dr. Garima Heraclio Protein [Mass/Vol] 6.9 g/dL Normal 6.4-8.[address] [facility] Comment on above: Performed By: #### C MP ####[facility] Uxbiwpyafa5437[address] [place], [place] [address]Dr. Garima Heraclio Sodium [Moles/Vol] 140 mmol/L Normal 136-[address] [facility] Comment on above: Performed By: #### C MP ####[facility] Kowsmgdxrb85[address] [place], [place] [address]Dr. Garima Pulliam Urea nitrogen [Mass/Vol] 8.0 mg/dL Normal 7.0-18.[address] [facility] Comment on above: Performed By: #### C MP ####[facility] Cxgbvlqxcf8665[address] [place], [place] [address]Dr. Garima Pulliam Urea nitrogen/Creatinine [Mass ratio] 10.8 mg/mg Normal [facility] Comment on above: Performed By: #### C DAVID ####[facility] Bqotuzrjkd1835 [place] [address]Dr. Garima Pulliam AMMONIAon 03-30-2023 Ammonia (P) [Moles/Vol] 11 umol/L Normal 11-[address] [facility] Comment on above: Performed By: #### A MM ####[facility] Aayfdmeaxx0911[address] [place], [place] [address]Dr. Garima Pulliam CARDIAC NASH ADMITon 023 CK [Catalytic activity/Vol] 232 U/L Normal 39-[address] [facility] Comment on above: Performed By: #### C NANCY HERNANDEZ ####[facility] Ibioyebfjv0841 [place] [address]Dr. Chapisrenu Pulliam CK.MB [Mass/Vol] 4.83 ng/mL Critically high <=3.[address] [facility] Comment on above: Performed By: #### C NANCY HERNANDEZ ####[facility] Zezfqjbpmy9[address] [place], [place] [address]Dr. Garima Pulliam HSTROP 10.5 pg/mL Normal 4.0-76.[address] [facility] Comment on above: Result Comment: CUT- OFF POINTS HAVE BEEN ESTABLISHED BASED ON THE FOURTH UNIVERSAL DEFINITIONS OF MYOCARDIALINFARCTION. THE UPPER REFERENCE LIMIT (URL) OF TROPONIN, DEFINED THE 99TH PERCENTILE OFcTnI DISTRIBUTION IN A REFERENCE POPULATION, HAS BEEN CONFIRMED THE DECISION THRESHOLDFOR [place] DIAGNOSIS. Performed By: #### C NANCY HERNANDEZ ####[facility] Ehouvvvpax6949[address] [place], [place] [address]Dr. Garima Heraclio DORIS 79 ng/mL Normal 16-[address] [facility] Comment on above: Performed By: #### C NANCY HERNANDEZ ####[facility] Oyohhmjiqv327[address] [place], [place] [address]Dr. Garima Heraclio CBC AUTO DIFFon 03-30-2023 BASO # 0.0 103/ul Normal 0.0-0.[address] [facility] Comment on above: Performed By: #### C BC ####[facility] Jvqvcurabz0690 [place] [id number]. Garima Pulliam Basophils/100 WBC (Bld) 0.1 % Critically low 0.2-2.[address] [facility] Comment on above: Performed By: #### C BC ####[facility] Qrajfrbldh2302 [place] [id number]. Garima Pulliam EO # 0.3 103/ul Normal 0.0-0.[address] [facility] Comment on above: Performed By: #### C BC ####[facility] Bnhculmqdp[address] [place], [place] [address]Dr. Garima Pulliam Eosinophils/100 WBC (Bld) 3.3 % Normal 0.9-7.[address] [facility] Comment on above: Performed By: #### C BC ####[facility] Nigmssrqsy64[address] [place], [place] [address]Dr. Garima Pulliam Erythrocyte distribution width (RBC) [Ratio] 13.5 % Normal 11.0-15.[address] [facility] Comment on above: Performed By: #### C BC ####[facility] Zwzrdyixus5[address] [place], [place] [address]Dr. Garima Pulliam Hematocrit (Bld) [Volume fraction] 42.9 % Normal 42.0-54.[address] [facility] Comment on above: Performed By: #### C BC ####[facility] Afyejodccj64[address] [place], [place] [address]Dr. Garima Pulliam Hemoglobin (Bld) [Mass/Vol] 13.9 g/dL Critically low 14.0-18.[address] [facility] Comment on above: Performed By: #### C BC ####[facility] Goglkgomqg2635 [place] [id number]. Garima Pulliam IG # 0.01 10e3/ul Normal 0.00-0.[address] [facility] Comment on above: Performed By: #### C BC ####[facility] Edgpgamfri32[address] [place], [place] [address]Dr. Garima Pulliam IG % 0.1 % Normal 0.0-0.[address] [facility] Comment on above: Performed By: #### C BC ####[facility] Dtuopthdql6540 [place] [phone]. Garima Pulliam LYMPH # 1.7 103/ul Normal 1.2-3.[address] [facility] Comment on above: Performed By: #### C BC ####[facility] Fpwmzrvyvr5898 [place], [place] [address]Eu. Garima Pulliam Lymphocytes/100 WBC (Bld) 22.8 % Normal 20.5-60.[address] [facility] Comment on above: Performed By: #### C BC ####[facility] Zbbifxivpb6118 [place] [id number]. Garima Heraclio MANUAL DIFF REQ NO Normal [facility] Comment on above: Performed By: #### C BC ####[facility] Yspgmzurkh6230 [place] [address]Dr. Garima Heraclio MCH (RBC) [Entitic mass] 30.5 pg Normal 25.9-34.[address] [facility] Comment on above: Performed By: #### C BC ####[facility] Gwmynqnqxp2563 [place] [address]Dr. Garima Pulliam MCHC (RBC) [Mass/Vol] 32.4 g/dL Normal 29.9-35.[address] [facility] Comment on above: Performed By: #### C BC ####[facility] Vvvlworicf1365 [place] [address]Dr. Garima Heraclio MCV (RBC) [Entitic vol] 94.1 fL Critically high 80.0-94.[address] [facility] Comment on above: Performed By: #### C BC ####[facility] Ikeuphzwkh1309 [place] [id number]. Garima Heraclio MONO # 0.7 103/ul Normal 0.3-0.[address] [facility] Comment on above: Performed By: #### C BC ####[facility] Ibisflmhnr5930 [place] [address]Dr. Garima Heraclio Monocytes/100 WBC (Bld) 8.6 % Normal 1.7-12.[address] [facility] Comment on above: Performed By: #### C BC ####[facility] Xszmfezmmh4573 [place] [address]Dr. Garima Pulliam NEUT # 4.9 103/ul Normal 1.4-6.[address] [facility] Comment on above: Performed By: #### C BC ####[facility] Nlskjyukgo6584 [place] [address]Dr. Garima Pulliam Neutrophils/100 WBC (Bld) 65.1 % Normal 43.0-75.[address] [facility] Comment on above: Performed By: #### C BC ####[facility] Octgzyywpk4926 [place] [phone]. Garima Pulliam Platelet mean volume (Bld) [Entitic vol] 8.5 fL Critically low 9.5-13.5 [facility] Comment on above: Performed By: #### C BC ####[facility] Tykmieukey9074 [place] [address]Dr. Garima Pulliam PLT 219 103/ul Normal 150-[address] [facility] Comment on above: Performed By: #### C BC ####[facility] Dcnlxttruc0376 [place] [address]Dr. Garima Pulliam RBC 4.56 106/ul Critically low 4.70-6.[address] [facility] Comment on above: Performed By: #### C BC ####[facility] Fxlhhihaln6870 [place] [address]Dr. Garima Pulliam WBC 7.6 103/ul Normal 4.0-11.[address] [facility] Comment on above: Performed By: #### C BC ####[facility] Atzojouyrq0228 [place] [phone]. Garima Pulliam LACTATE/LACTIC ACIDon 2022 Lactate [Moles/Vol] 1.2 mmol/L Normal 0.4-2.[address] [facility] Comment on above: Performed By: #### L ACT ####[facility] Xmgvtjoqma6948 [place] [phone]. Garima Pulliam MAGNESIUMon 03-30-2023 Magnesium [Mass/Vol] 1.8 mg/dL Normal 1.8-2.4 [facility] Comment on above: Performed By: #### M G ####[facility] Mntarjttrz2543 [place] [address]Dr. Garima Pulliam PROF 14(COMP METB)on 023 Albumin [Mass/Vol] 3.5 g/dL Normal 3.4-5.0 [facility] Comment on above: Performed By: #### C DAVID, CMAANA ROSA ####[facility] Obsxmvjali1808 [place] [address]Dr. Garima Pulliam Albumin/Globulin [Mass ratio] 1.2 {ratio} Normal [facility] Comment on above: Performed By: #### C DAVID, CMAANA ROSA ####[facility] Hecygcxioq7327 [place] [address]Dr. Garima Pulliam ALP [Catalytic activity/Vol] 85 U/L Normal 46-116 [facility] Comment on above: Performed By: #### C DAVID, CMAANA ROSA ####[facility] Zgigtcspbt[address] [place], [place] [address]Dr. Garima Pulliam ALT [Catalytic activity/Vol] 29 U/L Normal 16-63 [facility] Comment on above: Performed By: #### C DAVID, CMAANA ROSA ####[facility] Aumxbyzkny9477 [place] [address]Dr. Garima Pulliam Anion gap [Moles/Vol] 8.0 mmol/L Normal [facility] Comment on above: Performed By: #### C DAVID, CMAANA ROSA ####[facility] Miqlnpygbl5831 [place] [address]Dr. Garima Pulliam AST [Catalytic activity/Vol] 18 U/L Normal 15-[address] [facility] Comment on above: Performed By: #### C DAVID, CMADM ####[facility] Xilbrhvdex6413 [place] [address]Dr. Garima Pulliam Bilirubin [Mass/Vol] 0.4 mg/dL Normal 0.2-1.[address] [facility] Comment on above: Performed By: #### C DAVID, CMADM ####[facility] Sdsdmadass9854 [place] [address]Dr. Garima Pulliam Calcium [Mass/Vol] 8.8 mg/dL Normal 8.5-10.1 [facility] Comment on above: Performed By: #### C DAVID, NANCY ####[facility] Uaftfxwscv0905 [place] [address]Dr. Chapisrenu Pullima Chloride [Moles/Vol] 108 mmol/L Critically high 98-107 [facility] Comment on above: Performed By: #### C DAVID, NANCY ####[facility] Dsqcqhzrdx8361 [place] [address]Dr. Garima Pulliam CO2 [Moles/Vol] 29.6 mmol/L Normal 21.0-32.0 [facility] Comment on above: Performed By: #### C NANCY HERNANDEZ ####[facility] Keqgggpnjf16[address] [place], [place] [address]Dr. Garima Pulliam Creatinine [Mass/Vol] 0.77 mg/dL Normal 0.70-1.30 [facility] Comment on above: Performed By: #### C NANCY HERNANDEZ ####[facility] Hkvgnogxud95[address] [place], [place] [address]Dr. Garima Heraclio EGFR-AF BRAZILIAN >60 Normal >=60 [facility] Comment on above: Performed By: #### C NANCY HERNANDEZ ####[facility] Oxkjrhmxov[address] [place], [place] [address]Dr. Garima Heraclio EGFR-NON AF BRAZILIAN >60 Normal >=60 [facility] Comment on above: Performed By: #### C NANCY HERNANDEZ ####[facility] Rokxpwwxsj3160 [place] [address]Dr. Garima Pulliam Globulin (S) [Mass/Vol] 2.8 g/dL Normal [facility] Comment on above: Performed By: #### C NANCY HERNANDEZ ####[facility] Ahfxoitlqe8227 [place] [address]Dr. Garima Pulliam Glucose [Mass/Vol] 207 mg/dL Critically high 74-106 [facility] Comment on above: Performed By: #### C NANCY HERNANDEZ ####[facility] Cirtuhlqmr[address] [place], [place] [address]Dr. Garima Pulliam Potassium [Moles/Vol] 4.6 mmol/L Normal 3.5-5.1 [facility] Comment on above: Performed By: #### C DAVID, NANCY ####[facility] Alvwywyyll9164 [place] [address]Dr. Garima Pulliam Protein [Mass/Vol] 6.3 g/dL Critically low 6.4-8.[address] [facility] Comment on above: Performed By: #### C DAVID, NANCY ####[facility] Pywnygzjso6189 [place] [address]Dr. Garima Pulliam Sodium [Moles/Vol] 141 mmol/L Normal 136-145 [facility] Comment on above: Performed By: #### C DAVID, NANCY ####[facility] Ucjbcucgvm5265 [place] [address]Dr. Garima Pulliam Urea nitrogen [Mass/Vol] 9.0 mg/dL Normal 7.0-18.0 [facility] Comment on above: Performed By: #### C DAVID, NANCY ####[facility] Pniygocbbw0863 [place] [address]Dr. Garima Pulliam Urea nitrogen/Creatinine [Mass ratio] 11.7 mg/mg Normal [facility] Comment on above: Performed By: #### C DAVID, NANCY ####[facility] Wvrvxfvnro1834 [place] [address]Dr. Garima Pulliam XR CHEST 1 Von 03-30-2023 XR CHEST 1 V Normal [facility] BNPon 03-27-2023 Natriuretic peptide B (Bld) [Mass/Vol] 251.0 pg/mL Normal <=900.0 [facility] Comment on above: Performed By: #### C MP, BNP, LIPID ####[facility] Fwqzpminfn2798 [place] [address]Dr. Garima Uplliam GLYCOHEMOGLOBIN A1Con 2022 ADA RECOMMENDATION SEE BELOW Normal [facility] Comment on above: Result Comment: ADA RECOMMENDED LIMIT 4.0 - 6.0 ADA THERAPEUTIC TARGET < 7.0 ACTION SUGGESTED > 7.0 Performed By: #### A 1C ####[facility] Racyqyfzxi6276 [place] [address]Dr. Garima Pulliam Glucose [Mass/Vol] 180 mg/dL Normal [facility] Comment on above: Performed By: #### A 1C ####[facility] Fbpiupazqi11[address] [place], [place] [address]Dr. Chapisrenu Pulliam HbA1c (Bld) [Mass fraction] 7.9 % Critically high 4.5-6.2 [facility] Comment on above: Performed By: #### A 1C ####[facility] Dsxpfpavik[address] [place], [place] [address]Dr. Garima Pulliam HEMOGRAM AND PLATELon 2022 Hematocrit (Bld) [Volume fraction] 45.7 % Normal 42.0-54.0 [facility] Comment on above: Performed By: #### H H ####[facility] Ezjarpihaw7379[address] [place], [place] [address]Dr. Garima Pulliam Hemoglobin (Bld) [Mass/Vol] 15.1 g/dL Normal 14.0-18.0 [facility] Comment on above: Performed By: #### H H ####[facility] Ymdhvnedvw[address] [place], [place] [address]Dr. Garima Pulliam MCH (RBC) [Entitic mass] 30.0 pg Normal 25.9-34.0 [facility] Comment on above: Performed By: #### H H ####[facility] Htgudgidch17[address] [place], [place] [address]Dr. Garima Pulliam MCHC (RBC) [Mass/Vol] 33.0 g/dL Normal 29.9-35.[address] [facility] Comment on above: Performed By: #### H H ####[facility] Iozvcsdlsl894[address] [place], [place] [address]Dr. Garima Pulliam MCV (RBC) [Entitic vol] 90.7 fL Normal 80.0-94.0 [facility] Comment on above: Performed By: #### H H ####[facility] Czdsdkblov03[address] [place], [place] [address]Dr. Garima Pulliam PLT 222 103/ul Normal 150-[address] [facility] Comment on above: Performed By: #### H H ####[facility] Qqdwyzonxq8730 [place] [id number]. Garima Pulliam RBC 5.04 106/ul Normal 4.70-6.10 [facility] Comment on above: Performed By: #### H H ####[facility] Mwxjdlttvj0458 [place] [id number]. Garima Pulliam WBC 8.7 103/ul Normal 4.0-11.0 [facility] Comment on above: Performed By: #### H H ####[facility] Qnyplzyhsh4495 [place] [id number]. Garima Pulliam LIPID PROFILEon 03-27-2023 CHOL-HDL RATIO NORM SEE BELOW Normal [facility] Comment on above: Result Comment: 3.3 - 4.4 LOW RISK 4.4 - 7.1 AVERAGE RISK 7.1 - 11.0 MODERATE RISK >11.0 HIGH RISK Performed By: #### C MP, BNP, LIPID ####[facility] Cchielabsc8185 [place] [address]Dr. Garima Pulliam Cholesterol [Mass/Vol] 113 mg/dL Normal <=200 [facility] Comment on above: Performed By: #### C MP, BNP, LIPID ####[facility] Ijuewhzzsi5351 [place] [address]Dr. Garima Pulliam Cholesterol in HDL [Mass/Vol] 51 mg/dL Normal 40-60 [facility] Comment on above: Performed By: #### C MP, BNP, LIPID ####[facility] Bcszlwdwvl1347 [place] [address]Dr. Garima Pulliam Cholesterol in LDL [Mass/Vol] 49.8 mg/dL Normal [facility] Comment on above: Performed By: #### C MP, BNP, LIPID ####[facility] Gwzpmuyuxm6597 [place] [address]Dr. Garima Pulliam Cholesterol.total/Cho lesterol in HDL [Mass ratio] 2.2 {ratio} Normal [facility] Comment on above: Performed By: #### C MP, BNP, LIPID ####[facility] Cnzuxbfrda5863 [place] [address]Dr. Garima Pulliam HDL NORMAL > or = 60 mg/dl - LOW CARDIOVASCULAR RISK <40 mg/dl - HIGH CARDIOVASCULAR RISK Normal [facility] Comment on above: Performed By: #### C MP, BNP, LIPID ####[facility] Xgjugsvocp4833 [place] [address]Dr. Garima Pulliam LDL CALC NORMAL SEE BELOW Normal [facility] Comment on above: Result Comment: <100 mg/dl OPTIMAL 100 - 129 mg/dl NEAR OR ABOVE OPTIMAL 130 - 159 mg/dl BORDERLINE HIGH 160 - 189 mg/dl HIGH >190 mg/dl VERY HIGH Performed By: #### C MP, BNP, LIPID ####[facility] Ayptbtncel9671 [place] [address]Dr. Garima Pulliam Triglyceride [Mass/Vol] 61 mg/dL Normal <=150 [facility] Comment on above: Performed By: #### C MP, BNP, LIPID ####[facility] Piqoxcxyka9264 [place] [address]Dr. Garima Pulliam VLDL CALC 12.2 mg/dL Normal [facility] Comment on above: Performed By: #### C MP, BNP, LIPID ####[facility] Uvyuofxruc8571 [place] [address]Dr. Garima Pulliam PROF 14(COMP METB)on 023 Albumin [Mass/Vol] 3.5 g/dL Normal 3.4-5.0 [facility] Comment on above: Performed By: #### C MP, BNP, LIPID ####[facility] Fqibmcmxae3246 [place] [address]Dr. Garima Pulliam Albumin/Globulin [Mass ratio] 1.2 {ratio} Normal [facility] Comment on above: Performed By: #### C MP, BNP, LIPID ####[facility] Jcqcovleno0635 [place] [address]Dr. Garima Pulliam ALP [Catalytic activity/Vol] 82 U/L Normal 46-116 [facility] Comment on above: Performed By: #### C MP, BNP, LIPID ####[facility] Dsksbvpjvw4657 [place] [address]Dr. Garima Pulliam ALT [Catalytic activity/Vol] 33 U/L Normal 16-63 [facility] Comment on above: Performed By: #### C MP, BNP, LIPID ####[facility] Yvayfukndi6766 [place] [address]Dr. Garima Pulliam Anion gap [Moles/Vol] 9.9 mmol/L Normal [facility] Comment on above: Performed By: #### C MP, BNP, LIPID ####[facility] Xdwdlbkltw6607 [place] [address]Dr. Garima Pulliam AST [Catalytic activity/Vol] 24 U/L Normal 15-37 [facility] Comment on above: Performed By: #### C MP, BNP, LIPID ####[facility] Lqxklzczfc4351 [place] [address]Dr. Garima Pulliam Bilirubin [Mass/Vol] 0.6 mg/dL Normal 0.2-1.0 [facility] Comment on above: Performed By: #### C MP, BNP, LIPID ####[facility] Eromlyfqhl7026 [place] [address]Dr. Garima Pulliam Calcium [Mass/Vol] 9.2 mg/dL Normal 8.5-10.1 [facility] Comment on above: Performed By: #### C MP, BNP, LIPID ####[facility] Qmuzeacaoc9778 [place] [address]Dr. Garima Pulliam Chloride [Moles/Vol] 106 mmol/L Normal 98-[address] [facility] Comment on above: Performed By: #### C MP, BNP, LIPID ####[facility] Nhzxfwqwat4739 [place] [address]Dr. Garima Pulliam CO2 [Moles/Vol] 32.3 mmol/L Critically high 21.0-32.[address] [facility] Comment on above: Performed By: #### C MP, BNP, LIPID ####[facility] Vodvbvlsxu0572 [place] [address]Dr. Garima Pulliam Creatinine [Mass/Vol] 0.70 mg/dL Normal 0.70-1.30 [facility] Comment on above: Performed By: #### C MP, BNP, LIPID ####[facility] Mnvaemdfne6792 [place] [id number]. Garima Pulliam EGFR-AF BRAZILIAN >60 Normal >=60 [facility] Comment on above: Performed By: #### C MP, BNP, LIPID ####[facility] Wjgboprpsi3887 [place] [id number]. Garima Pulliam EGFR-NON AF BRAZILIAN >60 Normal >=60 [facility] Comment on above: Performed By: #### C MP, BNP, LIPID ####[facility] Kmtmobbotl4995 [place] [address]Dr. Garima Pulliam Globulin (S) [Mass/Vol] 2.9 g/dL Normal [facility] Comment on above: Performed By: #### C MP, BNP, LIPID ####[facility] Levwbrnmsr6522 [place] [address]Dr. Garima Pulliam Glucose [Mass/Vol] 111 mg/dL Critically high 74-106 [facility] Comment on above: Performed By: #### C MP, BNP, LIPID ####[facility] Erzisoqdhs7885 [place] [address]Dr. Garima Pulliam Potassium [Moles/Vol] 4.2 mmol/L Normal 3.5-5.1 [facility] Comment on above: Performed By: #### C MP, BNP, LIPID ####[facility] Dbfvubcnxu2418 [place] [address]Dr. Garima Pulliam Protein [Mass/Vol] 6.4 g/dL Normal 6.4-8.2 [facility] Comment on above: Performed By: #### C MP, BNP, LIPID ####[facility] Naofvyljar4021 [place] [address]Dr. Garima Pulliam Sodium [Moles/Vol] 144 mmol/L Normal 136-145 [facility] Comment on above: Performed By: #### C MP, BNP, LIPID ####[facility] Qyjfgurkri4659 [place] [address]Dr. Garima Pulliam Urea nitrogen [Mass/Vol] 7.0 mg/dL Normal 7.0-18.[address] [facility] Comment on above: Performed By: #### C MP, BNP, LIPID ####[facility] Diexxnboen9340[address] [place], [place] [address]Dr. Garima Pulliam Urea nitrogen/Creatinine [Mass ratio] 10.0 mg/mg Normal [facility] Comment on above: Performed By: #### C MP, BNP, LIPID ####[facility] Qrrrhlulbs7813[address] [place], [place] [address]Dr. Garima Pulliam BNPon 03-22-2023 Natriuretic peptide B (Bld) [Mass/Vol] 103.0 pg/mL Normal <=900.[address] [facility] Comment on above: Performed By: #### B DOT COMPLIANCE SPECIALIST, BMP ####[facility] Enkbloufrn3312[address] [place], [place] [address]Dr. Garima Pulliam CBC AUTO DIFFon 03-22-2023 BASO # 0.0 103/ul Normal 0.0-0.[address] [facility] Comment on above: Performed By: #### C BC ####[facility] Rfiuzwvosw[address] [place], [place] [address]Dr. Garima Heraclio Basophils/100 WBC (Bld) 0.3 % Normal 0.2-2.[address] [facility] Comment on above: Performed By: #### C BC ####[facility] Kcntzmbznz2735[address] [place], [place] [address]Dr. Garima Pulliam EO # 0.2 103/ul Normal 0.0-0.[address] [facility] Comment on above: Performed By: #### C BC ####[facility] Xryfncfusm164[address] [place], [place] [address]Dr. Garima Pulliam Eosinophils/100 WBC (Bld) 2.2 % Normal 0.9-7.[address] [facility] Comment on above: Performed By: #### C BC ####[facility] Aedgkelkat2776[address] [place], [place] [address]Dr. Garima Pulliam Erythrocyte distribution width (RBC) [Ratio] 13.2 % Normal 11.0-15.[address] [facility] Comment on above: Performed By: #### C BC ####[facility] Xbjpzjlxop5473 [place] [id number]. Garima Pulliam Hematocrit (Bld) [Volume fraction] 43.4 % Normal 42.0-54.[address] [facility] Comment on above: Performed By: #### C BC ####[facility] Msoxnbxkuf7483 [place] [address]Dr. Garima Heraclio Hemoglobin (Bld) [Mass/Vol] 14.3 g/dL Normal 14.0-18.[address] [facility] Comment on above: Performed By: #### C BC ####[facility] Whkjfvyssw1426 [place] [address]Dr. Garima Pulliam IG # 0.02 10e3/ul Normal 0.00-0.[address] [facility] Comment on above: Performed By: #### C BC ####[facility] Glagesvwcy2093 [place] [address]Dr. Garima Pulliam IG % 0.3 % Normal 0.0-0.[address] [facility] Comment on above: Performed By: #### C BC ####[facility] Qkdtlbachl8981 [place] [address]Dr. Chapisrenu Pulliam LYMPH # 2.0 103/ul Normal 1.2-3.[address] [facility] Comment on above: Performed By: #### C BC ####[facility] Fmeuqomtgw2147 [place] [address]Dr. Chapisrenu Pulliam Lymphocytes/100 WBC (Bld) 24.8 % Normal 20.5-60.[address] [facility] Comment on above: Performed By: #### C BC ####[facility] Qyipewhrxp4612 [place] [address]Dr. Chapisrenu Pulliam MANUAL DIFF REQ NO Normal [facility] Comment on above: Performed By: #### C BC ####[facility] Ikzzshvomt2610 [place] [address]Dr. Garima Heraclio MCH (RBC) [Entitic mass] 30.0 pg Normal 25.9-34.[address] [facility] Comment on above: Performed By: #### C BC ####[facility] Opwmkjefpu5407[address] [place], [place] [address]Dr. Garima Pulliam MCHC (RBC) [Mass/Vol] 32.9 g/dL Normal 29.9-35.[address] [facility] Comment on above: Performed By: #### C BC ####[facility] Fvxfgsaiio0866 [place] [id number]. Garima Pulliam MCV (RBC) [Entitic vol] 91.0 fL Normal 80.0-94.[address] [facility] Comment on above: Performed By: #### C BC ####[facility] Vnbxuctoqv8415 [place] [id number]. Garima Heraclio MONO # 0.8 103/ul Normal 0.3-0.[address] [facility] Comment on above: Performed By: #### C BC ####[facility] Dnansshyoo9903 [place] [address]Dr. Chapisrenu Pulliam Monocytes/100 WBC (Bld) 9.7 % Normal 1.7-12.[address] [facility] Comment on above: Performed By: #### C BC ####[facility] Snpdvbsbfw0031 [place] [address]Dr. Garima Pulliam NEUT # 4.9 103/ul Normal 1.4-6.[address] [facility] Comment on above: Performed By: #### C BC ####[facility] Rolsqxbank8705 [place] [id number]. aGrima Heraclio Neutrophils/100 WBC (Bld) 62.7 % Normal 43.0-75.[address] [facility] Comment on above: Performed By: #### C BC ####[facility] Wstljpsima8372 [place] [id number]. Gairma Heraclio Platelet mean volume (Bld) [Entitic vol] 8.8 fL Critically low 9.5-13.[address] [facility] Comment on above: Performed By: #### C BC ####[facility] Qjvnzomoxh9027 [place] [id number]. Garima Heraclio PLT 198 103/ul Normal 150-[address] [facility] Comment on above: Performed By: #### C BC ####[facility] Fgkpnnbmmr8086 [place] [id number]. Garima Heraclio RBC 4.77 106/ul Normal 4.70-6.[address] [facility] Comment on above: Performed By: #### C BC ####[facility] Tttbsnazzh6603 [place] [id number]. Garima Heraclio WBC 7.9 103/ul Normal 4.0-11.[address] [facility] Comment on above: Performed By: #### C BC ####[facility] Ivhyneipjw2721 [place] [id number]. Garima Heraclio D-DIMERon 03-22-2023 D-DIMER 0.85 mg/L FEU Critically high <=0.[address] [facility] Comment on above: Performed By: #### D DIM ####[facility] Gmxqtmqyni5613 [place] [address]Dr. Garima Pulliam D-DIMER COMMENTS SEE BELOW Normal [facility] Comment on above: Result [...] hospitalization. Performed By: #### D DIM ####[facility] Zvzkwzvrbf3267[address] [place], [place] [address]Dr. Garima Pulliam PROF CHEM 8 (BAS METB)on Anion gap [Moles/Vol] 6.9 mmol/L Normal [facility] Comment on above: Performed By: #### B DOT COMPLIANCE SPECIALIST, BMP ####[facility] Bzufwblbtc7878 [place] [address]Dr. Garima Pulliam Calcium [Mass/Vol] 8.9 mg/dL Normal 8.5-10.[address] [facility] Comment on above: Performed By: #### B DOT COMPLIANCE SPECIALIST, BMP ####[facility] Gtstmecyhh6993 [place] [address]Dr. Garima Pulliam Chloride [Moles/Vol] 101 mmol/L Normal 98-107 [facility] Comment on above: Performed By: #### B DOT COMPLIANCE SPECIALIST, BMP ####[facility] Cbpzomrxun4329[address] [place], [place] [address]Dr. Chapisrenu Heraclio CO2 [Moles/Vol] 30.7 mmol/L Normal 21.0-32.0 [facility] Comment on above: Performed By: #### B DOT COMPLIANCE SPECIALIST, BMP ####[facility] Bkrzyayvfg935[address] [place], [place] [address]Dr. Garima Pulliam Creatinine [Mass/Vol] 0.82 mg/dL Normal 0.70-1.30 [facility] Comment on above: Performed By: #### B DOT COMPLIANCE SPECIALIST, BMP ####[facility] Nltbvomsif9609[address] [place], [place] [address]Dr. Garima Pulliam EGFR-AF BRAZILIAN >60 Normal >=60 [facility] Comment on above: Performed By: #### B DOT COMPLIANCE SPECIALIST, BMP ####[facility] Glnesctqxx652[address] [place], [place] [address]Dr. Chapisrenu Heraclio EGFR-NON AF BRAZILIAN >60 Normal >=60 [facility] Comment on above: Performed By: #### B DOT COMPLIANCE SPECIALIST, BMP ####[facility] Wqpycnpepe9644[address] [place], [place] [address]Dr. Garima Pulliam Glucose [Mass/Vol] 339 mg/dL Critically high 74-106 [facility] Comment on above: Performed By: #### B DOT COMPLIANCE SPECIALIST, BMP ####[facility] Ozmqeuqzgz2756[address] [place], [place] [address]Dr. Garima Pulliam Potassium [Moles/Vol] 3.6 mmol/L Normal 3.5-5.1 [facility] Comment on above: Performed By: #### B DOT COMPLIANCE SPECIALIST, BMP ####[facility] Lnehvduitj6818[address] [place], [place] [address]Dr. Gariam Pulliam Sodium [Moles/Vol] 135 mmol/L Critically low 136-145 [facility] Comment on above: Performed By: #### B DOT COMPLIANCE SPECIALIST, BMP ####[facility] Cgvtsudulp5801[address] [place], [place] [address]Dr. Garima Pulliam Urea nitrogen [Mass/Vol] 11.0 mg/dL Normal 7.0-18.[address] [facility] Comment on above: Performed By: #### B DOT COMPLIANCE SPECIALIST, BMP ####[facility] Szhpkgeizm9299[address] [place], [place] [address]Dr. Garima Pulliam Urea nitrogen/Creatinine [Mass ratio] 13.4 mg/mg Normal [facility] Comment on above: Performed By: #### B DOT COMPLIANCE SPECIALIST, BMP ####[facility] Pyuzjrzyls7360[address] [place], [place] [address]Dr. Garima Pulliam US VERONICA DOP LEG BILon 023 US VERONICA DOP LEG BENOIT Normal [facility] BNPon 03-18-2023 Natriuretic peptide B (Bld) [Mass/Vol] 226.0 pg/mL Normal <=900.[address] [facility] Comment on above: Performed By: #### B DOT COMPLIANCE SPECIALIST, BMP ####[facility] Gnvjqdipes3411[address] [place], [place] [address]Dr. Garima Pulliam CBC AUTO DIFFon 03-18-2023 BASO # 0.0 103/ul Normal 0.0-0.1 [facility] Comment on above: Performed By: #### C BC ####[facility] Ichkbqzcgk864[address] [place], [place] [address]Dr. Garima Heraclio Basophils/100 WBC (Bld) 0.2 % Normal 0.2-2.[address] [facility] Comment on above: Performed By: #### C BC ####[facility] Pvzouvrrzz0001[address] [place], [place] [address]Dr. Garima Pulliam EO # 0.3 103/ul Normal 0.0-0.[address] [facility] Comment on above: Performed By: #### C BC ####[facility] Gfjifzsggu1159[address] [place], [place] [address]Dr. Garima Heraclio Eosinophils/100 WBC (Bld) 2.5 % Normal 0.9-7.[address] [facility] Comment on above: Performed By: #### C BC ####[facility] Ysijrmpsvp5145[address] [place], [place] [address]Dr. Garima Heraclio Erythrocyte distribution width (RBC) [Ratio] 13.2 % Normal 11.0-15.0 [facility] Comment on above: Performed By: #### C BC ####[facility] Lfuzhujaep4525 [place] [address]DrAdalberto Pulliam Hematocrit (Bld) [Volume fraction] 45.8 % Normal 42.0-54.0 [facility] Comment on above: Performed By: #### C BC ####[facility] Pptogarrnn3103 [place] [address]DrAdalberto Pulliam Hemoglobin (Bld) [Mass/Vol] 15.3 g/dL Normal 14.0-18.[address] [facility] Comment on above: Performed By: #### C BC ####[facility] Pymldoicnq2448[address] [place], [place] [address]DrAdalberto Pulliam IG # 0.02 10e3/ul Normal 0.00-0.[address] [facility] Comment on above: Performed By: #### C BC ####[facility] Jnkuzqtbnt6713[address] [place], [place] [address]DrAdalberto Pulliam IG % 0.2 % Normal 0.0-0.5 [facility] Comment on above: Performed By: #### C BC ####[facility] Ssrsursmet813[address] [place], [place] [address]DrAdalberto Pulliam LYMPH # 1.8 103/ul Normal 1.2-3.[address] [facility] Comment on above: Performed By: #### C BC ####[facility] Toelcmycvi12[address] [place], [place] [address]DrAdalberto Pulliam Lymphocytes/100 WBC (Bld) 18.3 % Critically low 20.5-60.[address] [facility] Comment on above: Performed By: #### C BC ####[facility] Ukhufryjic475[address] [place], [place] [address]DrAdalberto Pulliam MANUAL DIFF REQ NO Normal [facility] Comment on above: Performed By: #### C BC ####[facility] Wjwiojsbcd6582 [place] [address]DrAdalberto Pulliam MCH (RBC) [Entitic mass] 30.5 pg Normal 25.9-34.0 [facility] Comment on above: Performed By: #### C BC ####[facility] Acelsrbzkm8876 [place] [address]DrAdalberto Pulliam MCHC (RBC) [Mass/Vol] 33.4 g/dL Normal 29.9-35.[address] [facility] Comment on above: Performed By: #### C BC ####[facility] Kjqabhhfam1477 [place] [address]DrAdalberto Pulliam MCV (RBC) [Entitic vol] 91.2 fL Normal 80.0-94.[address] [facility] Comment on above: Performed By: #### C BC ####[facility] Uwkiqdbuzd220[address] [place], [place] [address]DrAdalberto Pulliam MONO # 0.8 103/ul Normal 0.3-0.[address] [facility] Comment on above: Performed By: #### C BC ####[facility] Aetdkxubah4554[address] [place], [place] [address]DrAdalberto Pulliam Monocytes/100 WBC (Bld) 7.6 % Normal 1.7-12.[address] [facility] Comment on above: Performed By: #### C BC ####[facility] Yqmnrmterw260[address] [place], [place] [address]DrAdalberto Pulliam NEUT # 7.0 103/ul Critically high 1.4-6.[address] [facility] Comment on above: Performed By: #### C BC ####[facility] Lxaaofnvkf6514[address] [place], [place] [address]DrAdalberto Pulliam Neutrophils/100 WBC (Bld) 71.2 % Normal 43.0-75.[address] [facility] Comment on above: Performed By: #### C BC ####[facility] Mwqtqgwrcn026[address] [place], [place] [address]DrAdalberto Pulliam Platelet mean volume (Bld) [Entitic vol] 8.9 fL Critically low 9.5-13.[address] [facility] Comment on above: Performed By: #### C BC ####[facility] Srcvnojcmq418[address] [place], [place] [address]DrAdalberto Pulliam PLT 217 103/ul Normal 150-450 [facility] Comment on above: Performed By: #### C BC ####[facility] Brenqjcukn2139 [place] [address]Dr. Garima Heraclio RBC 5.02 106/ul Normal 4.70-6.10 [facility] Comment on above: Performed By: #### C BC ####[facility] Eshonvcyjh25[address] [place], [place] [address]Dr. Garima Pulliam WBC 9.8 103/ul Normal 4.0-11.0 [facility] Comment on above: Performed By: #### C BC ####[facility] Bkdsqpfbfs2250[address] [place], [place] [address]Dr. Garima Heraclio CRPon 03-18-2023 CRP 0.1 mg/dL Normal <=1.0 [facility] Comment on above: Performed By: #### C RP ####[facility] Xyxiwdasgn3844[address] [place], [place] [address]Dr. Garima Heraclio PROF CHEM 8 (BAS METB)on Anion gap [Moles/Vol] 10.4 mmol/L Normal [facility] Comment on above: Performed By: #### B DOT COMPLIANCE SPECIALIST, BMP ####[facility] Oayotxobyg7313[address] [place], [place] [address]Dr. Garima Heraclio Calcium [Mass/Vol] 8.8 mg/dL Normal 8.5-10.1 [facility] Comment on above: Performed By: #### B DOT COMPLIANCE SPECIALIST, BMP ####[facility] Tyvowhmjyj1397[address] [place], [place] [address]Dr. Garima Heraclio Chloride [Moles/Vol] 97 mmol/L Critically low 98-107 [facility] Comment on above: Performed By: #### B DOT COMPLIANCE SPECIALIST, BMP ####[facility] Cfwqligusv8245[address] [place], [place] [address]Dr. Garima Pulliam CO2 [Moles/Vol] 31.2 mmol/L Normal 21.0-32.0 [facility] Comment on above: Performed By: #### B DOT COMPLIANCE SPECIALIST, BMP ####[facility] Asdznrlkwf687[address] [place], [place] [address]Dr. Garima Pulliam Creatinine [Mass/Vol] 0.91 mg/dL Normal 0.70-1.30 [facility] Comment on above: Performed By: #### B DOT COMPLIANCE SPECIALIST, BMP ####[facility] Cjushlclez3181 [place] [address]Dr. Garima Pulliam EGFR-AF BRAZILIAN >60 Normal >=60 [facility] Comment on above: Performed By: #### B DOT COMPLIANCE SPECIALIST, BMP ####[facility] Bdeadcedfn5168 [place] [id number]. Garima Pulliam EGFR-NON AF BRAZILIAN >60 Normal >=60 [facility] Comment on above: Performed By: #### B DOT COMPLIANCE SPECIALIST, BMP ####[facility] Bptjecwlmg3433 [place] [address]Dr. Garima Pulliam Glucose [Mass/Vol] 315 mg/dL Critically high 74-106 T [facility] Comment on above: Performed By: #### B DOT COMPLIANCE SPECIALIST, BMP ####[facility] Wyfaqnnvhh2253 [place] [address]Dr. Garima Pulliam Potassium [Moles/Vol] 3.6 mmol/L Normal 3.5-5.1 [facility] Comment on above: Performed By: #### B DOT COMPLIANCE SPECIALIST, BMP ####[facility] Aufrymwkcs3883 [place] [address]Dr. Garima Pulliam Sodium [Moles/Vol] 135 mmol/L Critically low 136-145 [facility] Comment on above: Performed By: #### B DOT COMPLIANCE SPECIALIST, BMP ####[facility] Hwlxoddwzz5072 [place] [address]Dr. Garima Pulliam Urea nitrogen [Mass/Vol] 7.0 mg/dL Normal 7.0-18.0 [facility] Comment on above: Performed By: #### B DOT COMPLIANCE SPECIALIST, BMP ####[facility] Zhbcxppsgq9541 [place] [address]Dr. Garima Pulliam Urea nitrogen/Creatinine [Mass ratio] 7.7 mg/mg Normal [facility] Comment on above: Performed By: #### B DOT COMPLIANCE SPECIALIST, BMP ####[facility] Amimrjnlex4510 [place] [address]Dr. Garima Pulliam SED RATE WESTERGRENon 2022 SED RATE 8 mm/hr Normal <=[address] [facility] Comment on above: Performed By: #### S EDR ####[facility] Djftyvmcpx4432[address] [place], [place] [address]Dr. Garima Pulliam BNPon 03-16-2023 Natriuretic peptide B (Bld) [Mass/Vol] 241.0 pg/mL Normal <=900.[address] [facility] Comment on above: Performed By: #### B DOT COMPLIANCE SPECIALIST, BMP, HSTROPN ####[facility] Wpfloywmhx13[address] [place], [place] [address]Dr. Garima Heraclio CBC AUTO DIFFon 03-16-2023 BASO # 0.0 103/ul Normal 0.0-0.1 [facility] Comment on above: Performed By: #### C BC ####[facility] Wgbffusemq297[address] [place], [place] [address]Dr. Chapisrenu Pulliam Basophils/100 WBC (Bld) 0.2 % Normal 0.2-2.0 [facility] Comment on above: Performed By: #### C BC ####[facility] Kossupaicm5237[address] [place], [place] [address]Dr. Garima Pulliam EO # 0.2 103/ul Normal 0.0-0.[address] [facility] Comment on above: Performed By: #### C BC ####[facility] Cexdwzukqr034[address] [place], [place] [address]Dr. Chapisrenu Pulliam Eosinophils/100 WBC (Bld) 2.7 % Normal 0.9-7.[address] [facility] Comment on above: Performed By: #### C BC ####[facility] Rdlqsawrhp842[address] [place], [place] [address]Dr. Garima Pulliam Erythrocyte distribution width (RBC) [Ratio] 13.1 % Normal 11.0-15.[address] [facility] Comment on above: Performed By: #### C BC ####[facility] Smbiubgqwu7613[address] [place], [place] [address]Dr. Garima Pulliam Hematocrit (Bld) [Volume fraction] 41.8 % Critically low 42.0-54.0 [facility] Comment on above: Performed By: #### C BC ####[facility] Ofebkxwcyo5092 [place] [address]Dr. Garima Pulliam Hemoglobin (Bld) [Mass/Vol] 14.0 g/dL Normal 14.0-18.0 [facility] Comment on above: Performed By: #### C BC ####[facility] Wfriibwwlq2503 [place] [address]Dr. Garima Pulliam IG # 0.03 10e3/ul Normal 0.00-0.03 [facility] Comment on above: Performed By: #### C BC ####[facility] Eeshmpjxey5159 [place] [address]Dr. Garima Pulliam IG % 0.3 % Normal 0.0-0.5 [facility] Comment on above: Performed By: #### C BC ####[facility] Qtuqfgbzdh84[address] [place], [place] [address]Dr. Chapisrenu Pulliam LYMPH # 2.1 103/ul Normal 1.2-3.8 [facility] Comment on above: Performed By: #### C BC ####[facility] Hvaixanbgg[address] [place], [place] [address]Dr. Chapisrenu Pulliam Lymphocytes/100 WBC (Bld) 24.2 % Normal 20.5-60.0 [facility] Comment on above: Performed By: #### C BC ####[facility] Rfqrgwualg8401 [place] [address]Dr. Garima Pulliam MANUAL DIFF REQ NO Normal [facility] Comment on above: Performed By: #### C BC ####[facility] Gplursezqg[address] [place] [address]Dr. Garima Pulliam MCH (RBC) [Entitic mass] 30.2 pg Normal 25.9-34.[address] [facility] Comment on above: Performed By: #### C BC ####[facility] Eqgsdxunpk2177 [place] [address]Dr. Garima Pulliam MCHC (RBC) [Mass/Vol] 33.5 g/dL Normal 29.9-35.[address] [facility] Comment on above: Performed By: #### C BC ####[facility] Cbmgvprzeh8509 [place] [id number]. Garima Pulliam MCV (RBC) [Entitic vol] 90.1 fL Normal 80.0-94.[address] [facility] Comment on above: Performed By: #### C BC ####[facility] Xkjmrhigyk6788 [place] [id number]. Garima Pulliam MONO # 0.6 103/ul Normal 0.3-0.8 [facility] Comment on above: Performed By: #### C BC ####[facility] Rvmletpqed3209 [place] [address]Dr. Garima Heraclio Monocytes/100 WBC (Bld) 7.4 % Normal 1.7-12.0 [facility] Comment on above: Performed By: #### C BC ####[facility] Xqldhkfyup[address] [place], [place] [address]Dr. Garima Pulliam NEUT # 5.6 103/ul Normal 1.4-6.5 [facility] Comment on above: Performed By: #### C BC ####[facility] Zfbqmprdcn[address] [place], [place] [address]Dr. Garima Heraclio Neutrophils/100 WBC (Bld) 65.2 % Normal 43.0-75.[address] [facility] Comment on above: Performed By: #### C BC ####[facility] Swdnebxqzk0378 [place] [id number]. Garima Heraclio Platelet mean volume (Bld) [Entitic vol] 8.7 fL Critically low 9.5-13.[address] [facility] Comment on above: Performed By: #### C BC ####[facility] Spaozadmum[address] [place], [place] [address]Dr. Garima Heraclio PLT 195 103/ul Normal 150-[address] [facility] Comment on above: Performed By: #### C BC ####[facility] Ekwksdnbqt2268 [place] [id number]. Garima Pulliam RBC 4.64 106/ul Critically low 4.70-6.[address] [facility] Comment on above: Performed By: #### C BC ####[facility] Slpkxeczut5300 [place] [address]Dr. Garima Pulliam WBC 8.6 103/ul Normal 4.0-11.[address] [facility] Comment on above: Performed By: #### C BC ####[facility] Nsrazwgexs8795 [place] [address]Dr. Garima Pulliam PROF CHEM 8 (BAS METB)on Anion gap [Moles/Vol] 6.7 mmol/L Normal [facility] Comment on above: Performed By: #### B DOT COMPLIANCE SPECIALIST, BMP, HSTROPN ####[facility] Indkceveyp3395 [place] [address]Dr. Garima Pulliam Calcium [Mass/Vol] 8.8 mg/dL Normal 8.5-10.1 [facility] Comment on above: Performed By: #### B DOT COMPLIANCE SPECIALIST, BMP, HSTROPN ####[facility] Dfzlyitcbt8[address] [place], [place] [address]Dr. Garima Pulliam Chloride [Moles/Vol] 106 mmol/L Normal 98-[address] [facility] Comment on above: Performed By: #### B DOT COMPLIANCE SPECIALIST, BMP, HSTROPN ####[facility] Sfjgeyhbpb[address] [place], [place] [address]Dr. Garima Pulliam CO2 [Moles/Vol] 31.4 mmol/L Normal 21.0-32.0 [facility] Comment on above: Performed By: #### B DOT COMPLIANCE SPECIALIST, BMP, HSTROPN ####[facility] Ncwvokgzpz[address] [place], [place] [address]Dr. Garima Pulliam Creatinine [Mass/Vol] 0.75 mg/dL Normal 0.70-1.[address] [facility] Comment on above: Performed By: #### B DOT COMPLIANCE SPECIALIST, BMP, HSTROPN ####[facility] Fnlzzekzbf8432 [place] [address]Dr. Garima Pulliam EGFR-AF BRAZILIAN >60 Normal >=60 [facility] Comment on above: Performed By: #### B DOT COMPLIANCE SPECIALIST, BMP, HSTROPN ####[facility] Vqwywrwlkv9166 [place] [address]Dr. Garima Pulliam EGFR-NON AF BRAZILIAN >60 Normal >=60 [facility] Comment on above: Performed By: #### B DOT COMPLIANCE SPECIALIST, BMP, HSTROPN ####[facility] Ahxxpljfpl4482 [place] [address]Dr. Garima Pulliam Glucose [Mass/Vol] 161 mg/dL Critically high 74-106 T [facility] Comment on above: Performed By: #### B DOT COMPLIANCE SPECIALIST, BMP, HSTROPN ####[facility] Cfniyawykd0798 [place] [address]Dr. Garima Pulliam Potassium [Moles/Vol] 4.1 mmol/L Normal 3.5-5.1 [facility] Comment on above: Performed By: #### B DOT COMPLIANCE SPECIALIST, BMP, HSTROPN ####[facility] Nedgrqfelk6309 [place] [address]Dr. Garima Pulliam Sodium [Moles/Vol] 140 mmol/L Normal 136-145 [facility] Comment on above: Performed By: #### B DOT COMPLIANCE SPECIALIST, BMP, HSTROPN ####[facility] Tjwgucwfjb5507 [place] [address]Dr. Garima Pulliam Urea nitrogen [Mass/Vol] 7.0 mg/dL Normal 7.0-18.0 [facility] Comment on above: Performed By: #### B DOT COMPLIANCE SPECIALIST, BMP, HSTROPN ####[facility] Qmvncyibwe3921 [place] [address]Dr. Garima Pulliam Urea nitrogen/Creatinine [Mass ratio] 9.3 mg/mg Normal [facility] Comment on above: Performed By: #### B DOT COMPLIANCE SPECIALIST, BMP, HSTROPN ####[facility] Bkjhbwcktz1639 [place] [address]Dr. Garima Pulliam TROPONIN, HIGH SENSITIVITYon 03-16-2023 HSTROP 9.7 pg/mL Normal 4.0-76.1 [facility] Comment on above: Result Comment: CUT- OFF POINTS HAVE BEEN ESTABLISHED BASED ON THE FOURTH UNIVERSAL DEFINITIONS OF MYOCARDIALINFARCTION. THE UPPER REFERENCE LIMIT (URL) OF TROPONIN, DEFINED THE 99TH PERCENTILE OFcTnI DISTRIBUTION IN A REFERENCE POPULATION, HAS BEEN CONFIRMED THE DECISION THRESHOLDFOR [place] DIAGNOSIS. Performed By: #### B DOT COMPLIANCE SPECIALIST, BMP, HSTROPN ####[facility] Crjcrttklu2104 [place] [address]Dr. Garima Pulliam XR CHEST 1 Von 03-16-2023 XR CHEST [address] [facility] BNPon 03-06-2023 Natriuretic peptide B (Bld) [Mass/Vol] 111.0 pg/mL Normal <=900.[address] [facility] Comment on above: Performed By: #### C MP, BNP, CK ####[facility] Uvvdydehdt8655 [place] [address]Dr. Chapisrenu Pulliam CBC AUTO DIFFon 03-06-2023 BASO # 0.0 103/ul Normal 0.0-0.1 [facility] Comment on above: Performed By: #### C BC ####[facility] Khwlqhhjam56[address] [place], [place] [address]Dr. Garima Pulliam Basophils/100 WBC (Bld) 0.2 % Normal 0.2-2.[address] [facility] Comment on above: Performed By: #### C BC ####[facility] Bjefpqvzjg8739[address] [place], [place] [address]Dr. Garima Pulliam EO # 0.3 103/ul Normal 0.0-0.[address] [facility] Comment on above: Performed By: #### C BC ####[facility] Eguglbyteg280[address] [place], [place] [address]Dr. Garima Pulliam Eosinophils/100 WBC (Bld) 3.5 % Normal 0.9-7.[address] [facility] Comment on above: Performed By: #### C BC ####[facility] Lqnwbzlhyh9833[address] [place], [place] [address]Dr. Garima Pulliam Erythrocyte distribution width (RBC) [Ratio] 13.3 % Normal 11.0-15.[address] [facility] Comment on above: Performed By: #### C BC ####[facility] Jzopoosuzr124[address] [place], [place] [address]Dr. Garima Pulliam Hematocrit (Bld) [Volume fraction] 43.7 % Normal 42.0-54.0 [facility] Comment on above: Performed By: #### C BC ####[facility] Mlrmrzsfrw7904 [place] [address]Dr. Garima Pulliam Hemoglobin (Bld) [Mass/Vol] 14.7 g/dL Normal 14.0-18.0 [facility] Comment on above: Performed By: #### C BC ####[facility] Nxkvumowsh0603 [place] [address]Dr. Chapisrenu Heraclio IG # 0.03 10e3/ul Normal 0.00-0.03 [facility] Comment on above: Performed By: #### C BC ####[facility] Ldaqmihhki778[address] [place], [place] [address]Dr. Garima Pulliam IG % 0.4 % Normal 0.0-0.5 [facility] Comment on above: Performed By: #### C BC ####[facility] Lforisjwsx0494[address] [place], [place] [address]Dr. Garima Pulliam LYMPH # 2.0 103/ul Normal 1.2-3.8 [facility] Comment on above: Performed By: #### C BC ####[facility] Rknbpythgw37[address] [place], [place] [address]DrAdalberto Pulliam Lymphocytes/100 WBC (Bld) 23.7 % Normal 20.5-60.0 [facility] Comment on above: Performed By: #### C BC ####[facility] Hgxzxjkpsl8151 [place] [address]Dr. Garima Pulliam MANUAL DIFF REQ NO Normal [facility] Comment on above: Performed By: #### C BC ####[facility] Eyzpjsthns8020 [place] [id number] Pulliam MCH (RBC) [Entitic mass] 30.1 pg Normal 25.9-34.0 [facility] Comment on above: Performed By: #### C BC ####[facility] Raxkpkflew5942 [place] [id number]. Garima Pulliam MCHC (RBC) [Mass/Vol] 33.6 g/dL Normal 29.9-35.2 [facility] Comment on above: Performed By: #### C BC ####[facility] Fpfqyxspkb6406 [place] [address]Dr. Garima Heraclio MCV (RBC) [Entitic vol] 89.4 fL Normal 80.0-94.[address] [facility] Comment on above: Performed By: #### C BC ####[facility] Khehwjcwvw6797 [place] [address]Dr. Garima Pulliam MONO # 0.8 103/ul Normal 0.3-0.[address] [facility] Comment on above: Performed By: #### C BC ####[facility] Uhibnnbjgc0382 [place] [address]Dr. Garima Pulliam Monocytes/100 WBC (Bld) 9.0 % Normal 1.7-12.[address] [facility] Comment on above: Performed By: #### C BC ####[facility] Vbuziatazo29[address] [place], [place] [address]Dr. Garima Pulliam NEUT # 5.4 103/ul Normal 1.4-6.[address] [facility] Comment on above: Performed By: #### C BC ####[facility] Hlgazhqein0827[address] [place], [place] [address]Dr. Garima Pulliam Neutrophils/100 WBC (Bld) 63.2 % Normal 43.0-75.[address] [facility] Comment on above: Performed By: #### C BC ####[facility] Myarvzimrd04[address] [place], [place] [address]Dr. Garima Pulliam Platelet mean volume (Bld) [Entitic vol] 9.0 fL Critically low 9.5-13.[address] [facility] Comment on above: Performed By: #### C BC ####[facility] Jhvysawjey78[address] [place], [place] [address]Dr. Garima Pulliam PLT 218 103/ul Normal 150-[address] [facility] Comment on above: Performed By: #### C BC ####[facility] Ojgqsswyzd3784 [place] [id number]. Garima Pulliam RBC 4.89 106/ul Normal 4.70-6.[address] [facility] Comment on above: Performed By: #### C BC ####[facility] Ziidyhkdtl6826 [place] [address]Dr. Garima Pulliam WBC 8.5 103/ul Normal 4.0-11.0 [facility] Comment on above: Performed By: #### C BC ####[facility] Pfyrizoyhs5030 [place] [address]Dr. Garima Pulliam CPKon 03-06-2023 CK [Catalytic activity/Vol] 191 U/L Normal 39-308 [facility] Comment on above: Performed By: #### C MP, BNP, CK ####[facility] Itlhchufpr0627 [place] [address]Dr. Garima Pulliam PROF 14(COMP METB)on 023 Albumin [Mass/Vol] 3.6 g/dL Normal 3.4-5.0 [facility] Comment on above: Performed By: #### C MP, BNP, CK ####[facility] Vlljllztdd1766 [place] [address]Dr. Garima Pulliam Albumin/Globulin [Mass ratio] 1.2 {ratio} Normal [facility] Comment on above: Performed By: #### C MP, BNP, CK ####[facility] Znkdodlwjx0613 [place] [address]Dr. Garima Pulliam ALP [Catalytic activity/Vol] 91 U/L Normal 46-116 [facility] Comment on above: Performed By: #### C MP, BNP, CK ####[facility] Qqpzmkgwcc3548 [place] [address]Dr. Garima Pulliam ALT [Catalytic activity/Vol] 33 U/L Normal 16-63 [facility] Comment on above: Performed By: #### C MP, BNP, CK ####[facility] Wrhueqtoer2775 [place] [address]Dr. Garima Pulliam Anion gap [Moles/Vol] 10.3 mmol/L Normal [facility] Comment on above: Performed By: #### C MP, BNP, CK ####[facility] Nszmjfotip1911 [place] [address]Dr. Garima Pulliam AST [Catalytic activity/Vol] 17 U/L Normal 15-[address] [facility] Comment on above: Performed By: #### C MP, BNP, CK ####[facility] Jcpnzpfimv5945 [place] [address]Dr. Garima Pulliam Bilirubin [Mass/Vol] 0.4 mg/dL Normal 0.2-1.0 [facility] Comment on above: Performed By: #### C MP, BNP, CK ####[facility] Vrdooshsfk6356 [place] [address]Dr. Garima Pulliam Calcium [Mass/Vol] 9.1 mg/dL Normal 8.5-10.[address] [facility] Comment on above: Performed By: #### C MP, BNP, CK ####[facility] Zdiplnldrq4021 [place] [address]Dr. Garima Pulliam Chloride [Moles/Vol] 102 mmol/L Normal 98-[address] [facility] Comment on above: Performed By: #### C MP, BNP, CK ####[facility] Isusqwihbf0315 [place] [address]Dr. Garima Pulliam CO2 [Moles/Vol] 29.7 mmol/L Normal 21.0-32.0 [facility] Comment on above: Performed By: #### C MP, BNP, CK ####[facility] Ljnjzjpdig0156 [place] [address]Dr. Garima Pulliam Creatinine [Mass/Vol] 0.79 mg/dL Normal 0.70-1.[address] [facility] Comment on above: Performed By: #### C MP, BNP, CK ####[facility] Mybvlfkmbe4450 [place] [address]Dr. Garima Pulliam EGFR-AF BRAZILIAN >60 Normal >=60 [facility] Comment on above: Performed By: #### C MP, BNP, CK ####[facility] Mzxrhuddtx6967 [place] [address]Dr. Garima Pulliam EGFR-NON AF BRAZILIAN >60 Normal >=[address] [facility] Comment on above: Performed By: #### C MP, BNP, CK ####[facility] Bjmjmxwroy3816 [place] [address]Dr. Garima Pulliam Globulin (S) [Mass/Vol] 3.0 g/dL Normal [facility] Comment on above: Performed By: #### C MP, BNP, CK ####[facility] Sovnqnqeaw1004 [place] [address]Dr. Garima Pulliam Glucose [Mass/Vol] 202 mg/dL Critically high 74-106 [facility] Comment on above: Performed By: #### C MP, BNP, CK ####[facility] Diqlkshmfn4717 [place] [address]Dr. Garima Pulliam Potassium [Moles/Vol] 4.0 mmol/L Normal 3.5-5.1 [facility] Comment on above: Performed By: #### C MP, BNP, CK ####[facility] Penlygjiem6359 [place] [address]Dr. Garima Pulliam Protein [Mass/Vol] 6.6 g/dL Normal 6.4-8.2 [facility] Comment on above: Performed By: #### C MP, BNP, CK ####[facility] Rohhgfxcnv569[address] [place], [place] [address]Dr. Garima Pulliam Sodium [Moles/Vol] 138 mmol/L Normal 136-145 [facility] Comment on above: Performed By: #### C MP, BNP, CK ####[facility] Csonxucout4[address] [place], [place] [address]Dr. Garima Pulliam Urea nitrogen [Mass/Vol] 10.0 mg/dL Normal 7.0-18.0 [facility] Comment on above: Performed By: #### C MP, BNP, CK ####[facility] Nlfwhdesrc0518 [place] [address]Dr. Garima Pulliam Urea nitrogen/Creatinine [Mass ratio] 12.7 mg/mg Normal [facility] Comment on above: Performed By: #### C MP, BNP, CK ####[facility] Tdzzbaxyff9417 [place] [address]Dr. Garima Pulliam US VERONICA DOP LEG BILon 023 US VERONICA DOP LEG BENOIT Normal [facility] CBC AUTO DIFFon 01-13-2023 BASO # 0.0 103/ul Normal 0.0-0.[address] [facility] Comment on above: Performed By: #### C BC ####[facility] Bikeprcwaz2926 [place] [id number]. Chapisrenu Pulliam Basophils/100 WBC (Bld) 0.0 % Critically low 0.2-2.[address] [facility] Comment on above: Performed By: #### C BC ####[facility] Hmcsalpooc1083 [place] [address]Dr. Garima Pulliam EO # 0.0 103/ul Normal 0.0-0.[address] [facility] Comment on above: Performed By: #### C BC ####[facility] Irzneamcbm1539[address] [place], [place] [address]Dr. Garima Pulliam Eosinophils/100 WBC (Bld) 0.0 % Critically low 0.9-7.[address] [facility] Comment on above: Performed By: #### C BC ####[facility] Woqlrfwnll9041 [place] [address]Dr. Garima Pulliam Erythrocyte distribution width (RBC) [Ratio] 13.2 % Normal 11.0-15.0 [facility] Comment on above: Performed By: #### C BC ####[facility] Aesaekcpvi9129[address] [place], [place] [address]Dr. Garima Pulliam Hematocrit (Bld) [Volume fraction] 46.7 % Normal 42.0-54.[address] [facility] Comment on above: Performed By: #### C BC ####[facility] Baawumokqv1139[address] [place], [place] [address]Dr. Garima Pulliam Hemoglobin (Bld) [Mass/Vol] 15.6 g/dL Normal 14.0-18.[address] [facility] Comment on above: Performed By: #### C BC ####[facility] Bzetzgnlcw46[address] [place], [place] [address]Dr. Garima Pulliam IG # 0.01 10e3/ul Normal 0.00-0.[address] [facility] Comment on above: Performed By: #### C BC ####[facility] Pzayhuttfe6055 [place] [id number]. Garima Pulliam IG % 0.2 % Normal 0.0-0.5 [facility] Comment on above: Performed By: #### C BC ####[facility] Vemqlrjpui0823 [place] [id number]. Garima Pulliam LYMPH # 0.8 103/ul Critically low 1.2-3.8 [facility] Comment on above: Performed By: #### C BC ####[facility] Ujehyrbppm6927 [place] [id number]. Garima Pulliam Lymphocytes/100 WBC (Bld) 12.7 % Critically low 20.5-60.0 [facility] Comment on above: Performed By: #### C BC ####[facility] Zesdcoscxr7074 [place] [address]Dr. Garima Pulliam MANUAL DIFF REQ NO Normal [facility] Comment on above: Performed By: #### C BC ####[facility] Fzhbldfuew0846 [place] [phone]. Garima Pulliam MCH (RBC) [Entitic mass] 30.2 pg Normal 25.9-34.0 [facility] Comment on above: Performed By: #### C BC ####[facility] Msjfhdalid2109 [place] [phone]. Garima Pulliam MCHC (RBC) [Mass/Vol] 33.4 g/dL Normal 29.9-35.[address] [facility] Comment on above: Performed By: #### C BC ####[facility] Czgrxizdad2684 [place] [phone]. Garima Pulliam MCV (RBC) [Entitic vol] 90.3 fL Normal 80.0-94.[address] [facility] Comment on above: Performed By: #### C BC ####[facility] Mzddcvjnzp6340 [place] [id number]. Garima Heraclio MONO # 0.1 103/ul Critically low 0.3-0.8 [facility] Comment on above: Performed By: #### C BC ####[facility] Gjkcehajts1390 [place] [phone]. Garima Pulliam Monocytes/100 WBC (Bld) 0.9 % Critically low 1.7-12.0 [facility] Comment on above: Performed By: #### C BC ####[facility] Pgynheegry2757 [place] [id number]. Garima Pulliam NEUT # 5.6 103/ul Normal 1.4-6.[address] [facility] Comment on above: Performed By: #### C BC ####[facility] Tlzlnzkzhy2504 [place] [phone]. Garima Pulliam Neutrophils/100 WBC (Bld) 86.2 % Critically high 43.0-75.0 [facility] Comment on above: Performed By: #### C BC ####[facility] Edeugovkty5150 [place] [address]Dr. Garima Pulliam Platelet mean volume (Bld) [Entitic vol] 9.1 fL Critically low 9.5-13.5 [facility] Comment on above: Performed By: #### C BC ####[facility] Todzjjolrw159[address] [place], [place] [address]Dr. Garima Pulliam PLT 169 103/ul Normal 150-[address] [facility] Comment on above: Performed By: #### C BC ####[facility] Daajmksglk85[address] [place], [place] [address]Dr. Garima Pulliam RBC 5.17 106/ul Normal 4.70-6.[address] [facility] Comment on above: Performed By: #### C BC ####[facility] Fcvumkteow62[address] [place], [place] [address]Dr. Graima Pulliam WBC 6.5 103/ul Normal 4.0-11.[address] [facility] Comment on above: Performed By: #### C BC ####[facility] Ppebkqprxj75[address] [place], [place] [address]Dr. Garima Pulliam D-DIMERon 01-13-2023 D-DIMER 0.41 mg/L FEU Normal <=0.59 [facility] Comment on above: Performed By: #### D DIM ####[facility] Bkiermrspm3006 [place] [address]Dr. Garima Pulliam D-DIMER COMMENTS SEE BELOW Normal [facility] Comment on above: Result Comment: Incr eases [...] hospitalization. Performed By: #### D DIM ####[facility] Xvinrmrhyy33[address] [place], [place] [address]Dr. Garima Pulliam PROF 14(COMP METB)on 023 Albumin [Mass/Vol] 3.4 g/dL Normal 3.4-5.0 [facility] Comment on above: Performed By: #### C MP ####[facility] Btofbsadbr4707[address] [place], [place] [address]Dr. Garima Pulliam Albumin/Globulin [Mass ratio] 1.3 {ratio} Normal [facility] Comment on above: Performed By: #### C MP ####[facility] Tfethgpjii1238[address] [place], [place] [address]Dr. Garima Pulliam ALP [Catalytic activity/Vol] 83 U/L Normal 46-116 [facility] Comment on above: Performed By: #### C MP ####[facility] Obirudcckn7916[address] [place], [place] [address]Dr. Garima Pulliam ALT [Catalytic activity/Vol] 25 U/L Normal 16-63 [facility] Comment on above: Performed By: #### C MP ####[facility] Smszevzlls9932 [place] [address]Dr. Garima Pulliam Anion gap [Moles/Vol] 14.5 mmol/L Normal [facility] Comment on above: Performed By: #### C MP ####[facility] Qvwlubiuhn3287[address] [place], [place] [address]Dr. Garima Pulliam AST [Catalytic activity/Vol] 19 U/L Normal 15-37 [facility] Comment on above: Performed By: #### C MP ####[facility] Likfrmehqk928[address] [place], [place] [address]Dr. Garima Pulliam Bilirubin [Mass/Vol] 0.4 mg/dL Normal 0.2-1.0 [facility] Comment on above: Performed By: #### C MP ####[facility] Lbbscurtqn1850[address] [place], [place] [address]Dr. Garima Pulliam Calcium [Mass/Vol] 8.7 mg/dL Normal 8.5-10.1 [facility] Comment on above: Performed By: #### C MP ####[facility] Wtaeywwjhq0530[address] [place], [place] [address]Dr. Garima Pulliam Chloride [Moles/Vol] 104 mmol/L Normal 98-107 [facility] Comment on above: Performed By: #### C MP ####[facility] Zwfphwdecm9309[address] [place], [place] [address]Dr. Garima Pulliam CO2 [Moles/Vol] 24.5 mmol/L Normal 21.0-32.0 [facility] Comment on above: Performed By: #### C MP ####[facility] Sargnzvyub85[address] [place], [place] [address]Dr. Garima Pulliam Creatinine [Mass/Vol] 0.70 mg/dL Normal 0.70-1.30 [facility] Comment on above: Performed By: #### C MP ####[facility] Ggrxyexoao8367[address] [place], [place] [address]Dr. Garima Heraclio EGFR-AF BRAZILIAN >60 Normal >=60 [facility] Comment on above: Performed By: #### C MP ####[facility] Raczmbjvcd3887[address] [place], [place] [address]Dr. Chapisrenu Heraclio EGFR-NON AF BRAZILIAN >60 Normal >=60 [facility] Comment on above: Performed By: #### C MP ####[facility] Fiihagykmp940[address] [place], [place] [address]Dr. Chapisrenu Pulliam Globulin (S) [Mass/Vol] 2.6 g/dL Normal [facility] Comment on above: Performed By: #### C MP ####[facility] Jiybcnlprd9841 [place] [address]Dr. Gariam Pulliam Glucose [Mass/Vol] 196 mg/dL Critically high 74-106 [facility] Comment on above: Performed By: #### C MP ####[facility] Drnctrainl3364 [place] [address]Dr. Garima Pulliam Potassium [Moles/Vol] 4.0 mmol/L Normal 3.5-5.1 [facility] Comment on above: Performed By: #### C MP ####[facility] Nfgosyykoj3413 [place] [address]Dr. Garima Pulliam Protein [Mass/Vol] 6.0 g/dL Critically low 6.4-8.2 [facility] Comment on above: Performed By: #### C MP ####[facility] Mwlcwhfuyh08[address] [place], [place] [address]Dr. Garima Pulliam Sodium [Moles/Vol] 139 mmol/L Normal 136-145 [facility] Comment on above: Performed By: #### C MP ####[facility] Aexijrfehk5[address] [place], [place] [address]Dr. Garima Pulliam Urea nitrogen [Mass/Vol] 7.0 mg/dL Normal 7.0-18.0 [facility] Comment on above: Performed By: #### C MP ####[facility] [address]jsselg[address] [place], [place] [address]Dr. Garima Heraclio Urea nitrogen/Creatinine [Mass ratio] 10.0 mg/mg Normal [facility] Comment on above: Performed By: #### C MP ####[facility] Qsvlmrixln17[address] [place], [place] [address]Dr. Garima Heraclio BNPon 01-12-2023 Natriuretic peptide B (Bld) [Mass/Vol] 141.0 pg/mL Normal <=900.0 [facility] Comment on above: Performed By: #### C MP, BNP, HSTROPN ####[facility] Vkwvxebwyr[address] [place], [place] [address]Dr. Garima Heraclio CBC AUTO DIFFon 01-12-2023 BASO # 0.0 103/ul Normal 0.0-0.[address] [facility] Comment on above: Performed By: #### C BC ####[facility] Ddrvumjeej9626 [place] [id number]. Garima Heraclio Basophils/100 WBC (Bld) 0.2 % Normal 0.2-2.[address] [facility] Comment on above: Performed By: #### C BC ####[facility] Djrkfifexu9837 [place] [address]Dr. Garima Heraclio EO # 0.2 103/ul Normal 0.0-0.[address] [facility] Comment on above: Performed By: #### C BC ####[facility] Ykotjmdqug0949 [place] [address]Dr. Garima Heraclio Eosinophils/100 WBC (Bld) 2.7 % Normal 0.9-7.[address] [facility] Comment on above: Performed By: #### C BC ####[facility] Ekrwrehsih75[address] [place], [place] [address]Dr. Garima Pulliam Erythrocyte distribution width (RBC) [Ratio] 13.3 % Normal 11.0-15.[address] [facility] Comment on above: Performed By: #### C BC ####[facility] Dgacvzrunz39[address] [place], [place] [address]Dr. Garima Pulliam Hematocrit (Bld) [Volume fraction] 42.3 % Normal 42.0-54.[address] [facility] Comment on above: Performed By: #### C BC ####[facility] Drfgloexal[address] [place], [place] [address]Dr. Garima Pulliam Hemoglobin (Bld) [Mass/Vol] 14.3 g/dL Normal 14.0-18.[address] [facility] Comment on above: Performed By: #### C BC ####[facility] Otnthuedtn7[address] [place], [place] [address]Dr. Garima Pulliam IG # 0.02 10e3/ul Normal 0.00-0.[address] [facility] Comment on above: Performed By: #### C BC ####[facility] Biaiuynmtl9479 [place] [id number]. Garima Pulliam IG % 0.2 % Normal 0.0-0.[address] [facility] Comment on above: Performed By: #### C BC ####[facility] Nsnwsghgoo5744 [place] [id number]. Garima Pulliam LYMPH # 2.6 103/ul Normal 1.2-3.[address] [facility] Comment on above: Performed By: #### C BC ####[facility] Tyerrtlpli3135 [place] [id number]. Garima Heraclio Lymphocytes/100 WBC (Bld) 29.6 % Normal 20.5-60.[address] [facility] Comment on above: Performed By: #### C BC ####[facility] Fofrbvxzex7208 [place] [address]Dr. Garima Heraclio MANUAL DIFF REQ NO Normal [facility] Comment on above: Performed By: #### C BC ####[facility] Mpjwgzdzju7505 [place] [id number]. Garima Pulliam MCH (RBC) [Entitic mass] 30.2 pg Normal 25.9-34.[address] [facility] Comment on above: Performed By: #### C BC ####[facility] Lxypynkgcs3885 [place] [address]Dr. Garima Pulliam MCHC (RBC) [Mass/Vol] 33.8 g/dL Normal 29.9-35.[address] [facility] Comment on above: Performed By: #### C BC ####[facility] Ervpcqujxz4852 [place] [id number]. Garima Pulliam MCV (RBC) [Entitic vol] 89.2 fL Normal 80.0-94.[address] [facility] Comment on above: Performed By: #### C BC ####[facility] Fkgmhdyzaw9[address] [place], [place] [address]Dr. Chapisrenu Pulliam MONO # 0.7 103/ul Normal 0.3-0.[address] [facility] Comment on above: Performed By: #### C BC ####[facility] Qcrxlltbny7178 [place] [id number]. Garima Pulliam Monocytes/100 WBC (Bld) 8.3 % Normal 1.7-12.[address] [facility] Comment on above: Performed By: #### C BC ####[facility] Bjgrrqnesn1724 [place] [id number]. Garima Pulliam NEUT # 5.1 103/ul Normal 1.4-6.[address] [facility] Comment on above: Performed By: #### C BC ####[facility] Vyxieueklc2337 [place] [id number]. Garima Pulliam Neutrophils/100 WBC (Bld) 59.0 % Normal 43.0-75.[address] [facility] Comment on above: Performed By: #### C BC ####[facility] Xsnwlmmnag7194 [place] [address]Dr. Garima Pulliam Platelet mean volume (Bld) [Entitic vol] 8.7 fL Critically low 9.5-13.[address] [facility] Comment on above: Performed By: #### C BC ####[facility] Izzmllzvar3332 [place] [address]Dr. Garima Pulliam PLT 182 103/ul Normal 150-[address] [facility] Comment on above: Performed By: #### C BC ####[facility] Wluiqwkygh0336 [place] [id number]. Garima Pulliam RBC 4.74 106/ul Normal 4.70-6.[address] [facility] Comment on above: Performed By: #### C BC ####[facility] Evrttvhmir8[address] [place], [place] [address]Dr. Garima Pulliam WBC 8.7 103/ul Normal 4.0-11.[address] [facility] Comment on above: Performed By: #### C BC ####[facility] Vpbmryodzl99[address] [place], [place] [address]Dr. Garima Pulliam Covid-19 PCR (CVDTB)on 12-25 SARS-CoV-2 (COVID-19) RNA MARIE+probe Ql (Unsp spec) Not detected Normal NOT DETECTED [facility] Comment on above: Result Comment: When [...] for this test is supported by the [place] of Health and Human Service's declaration that [...] used). Performed By: #### C VDTBH ####[facility] Irtarogkea4187 [place] [address]Dr. Garima Pulliam PROF 14(COMP METB)on 023 Albumin [Mass/Vol] 3.6 g/dL Normal 3.4-5.0 [facility] Comment on above: Performed By: #### C MP, BNP, HSTROPN ####[facility] Bsznohysyc5653 [place] [address]Dr. Garima Pulliam Albumin/Globulin [Mass ratio] 1.5 {ratio} Normal [facility] Comment on above: Performed By: #### C MP, BNP, HSTROPN ####[facility] Yuikfsxyom5988 [place] [address]Dr. Garima Pulliam ALP [Catalytic activity/Vol] 79 U/L Normal 46-[address] [facility] Comment on above: Performed By: #### C MP, BNP, HSTROPN ####[facility] Jotnxllhoy5601 [place] [address]Dr. Garima Pulliam ALT [Catalytic activity/Vol] 27 U/L Normal 16-63 [facility] Comment on above: Performed By: #### C MP, BNP, HSTROPN ####[facility] Zxewipplle8224 [place] [address]Dr. Garima Pulliam Anion gap [Moles/Vol] 11.7 mmol/L Normal [facility] Comment on above: Performed By: #### C MP, BNP, HSTROPN ####[facility] Njqqyjpeom2059 [place] [address]Dr. Garima Pulliam AST [Catalytic activity/Vol] 21 U/L Normal 15-37 [facility] Comment on above: Performed By: #### C MP, BNP, HSTROPN ####[facility] Uuwhxjkhfs5113 [place] [address]Dr. Garima Pulliam Bilirubin [Mass/Vol] 0.3 mg/dL Normal 0.2-1.0 [facility] Comment on above: Performed By: #### C MP, BNP, HSTROPN ####[facility] Wnucrrqbpu0564 [place] [address]Dr. Garima Pulliam Calcium [Mass/Vol] 8.9 mg/dL Normal 8.5-10.1 [facility] Comment on above: Performed By: #### C MP, BNP, HSTROPN ####[facility] Buvumuevvo6986 [place] [address]Dr. Garima Pulliam Chloride [Moles/Vol] 107 mmol/L Normal 98-107 [facility] Comment on above: Performed By: #### C MP, BNP, HSTROPN ####[facility] Rvsatvgfmy2731 [place] [address]Dr. Garima Pulliam CO2 [Moles/Vol] 26.0 mmol/L Normal 21.0-32.0 [facility] Comment on above: Performed By: #### C MP, BNP, HSTROPN ####[facility] Uzwzfmkvah5890 [place] [address]Dr. Garima Pulliam Creatinine [Mass/Vol] 0.65 mg/dL Critically low 0.70-1.30 [facility] Comment on above: Performed By: #### C MP, BNP, HSTROPN ####[facility] Svaofvrzys7406 [place] [address]Dr. Yilan Pulliam EGFR-AF BRAZILIAN >60 Normal >=60 [facility] Comment on above: Performed By: #### C MP, BNP, HSTROPN ####[facility] Mqyfnlkomu3216 [place] [address]Dr. Garima Pulliam EGFR-NON AF BRAZILIAN >60 Normal >=60 [facility] Comment on above: Performed By: #### C MP, BNP, HSTROPN ####[facility] Pmtmmnfjwy1787 [place] [address]Dr. Garima Pulliam Globulin (S) [Mass/Vol] 2.4 g/dL Normal [facility] Comment on above: Performed By: #### C MP, BNP, HSTROPN ####[facility] Donsllkccb[address] [place], [place] [address]Dr. Garima Pulliam Glucose [Mass/Vol] 85 mg/dL Normal 74-106 [facility] Comment on above: Performed By: #### C MP, BNP, HSTROPN ####[facility] Cpcjwdiiav6985 [place] [address]Dr. Garima Pulliam Potassium [Moles/Vol] 3.7 mmol/L Normal 3.5-5.1 [facility] Comment on above: Performed By: #### C MP, BNP, HSTROPN ####[facility] Aitfcpbglf2018 [place] [address]Dr. Garima Pulliam Protein [Mass/Vol] 6.0 g/dL Critically low 6.4-8.2 [facility] Comment on above: Performed By: #### C MP, BNP, HSTROPN ####[facility] Bnmdwtaqgx6008 [place] [address]Dr. Garima Pulliam Sodium [Moles/Vol] 141 mmol/L Normal 136-[address] [facility] Comment on above: Performed By: #### C MP, BNP, HSTROPN ####[facility] Lwusodufbv3814 [place] [address]Dr. Garima Pulliam Urea nitrogen [Mass/Vol] 5.0 mg/dL Critically low 7.0-18.0 [facility] Comment on above: Performed By: #### C MP, BNP, HSTROPN ####[facility] Rifgldjlzk5661 [place] [address]Dr. Garima Pulliam Urea nitrogen/Creatinine [Mass ratio] 7.7 mg/mg Normal [facility] Comment on above: Performed By: #### C MP, BNP, HSTROPN ####[facility] Hasfswnhtu6795 [place] [address]Dr. Garima Pulliam PROTIMEon 01-12-2023 INR Coag (PPP) [Relative time] 1.16 {INR} Normal [facility] Comment on above: Performed By: #### P TT, PT ####[facility] Ynteygdmcj0181 [place] [address]Dr. Garima Pulliam INR GUIDELINES SEE BELOW Normal [facility] Comment on above: Result Comment: WESLEY RED INR: 2.0 - 3.0 CONDITIONS NOT LISTED BELOW 2.5 - 3.5 FOR PROSTHETIC HEART VALVE REPLACEMENT 2.5 - 3.5 RECURRENT THROMBOSIS Performed By: #### P TT, PT ####[facility] Ewbljdncbk50[address] [place], [place] [address]Dr. Garima Pulliam PT Coag (PPP) [Time] 12.2 s Critically high 9.0-11.[address] [facility] Comment on above: Performed By: #### P TT, PT ####[facility] Iurwdwsavj3457 [place] [address]Dr. Garima Pulliam PTTon 01-12-2023 aPTT Coag (Bld) [Time] 29.1 s Normal 22.3-36.[address] [facility] Comment on above: Performed By: #### P TT, PT ####[facility] Xhqrbdkwja37[address] [place], [place] [address]Dr. Garima Pulliam TROPONIN, HIGH SENSITIVITYon 01-12-2023 HSTROP 10.3 pg/mL Normal 4.0-76.[address] [facility] Comment on above: Result Comment: CUT- OFF POINTS HAVE BEEN ESTABLISHED BASED ON THE FOURTH UNIVERSAL DEFINITIONS OF MYOCARDIALINFARCTION. THE UPPER REFERENCE LIMIT (URL) OF TROPONIN, DEFINED THE 99TH PERCENTILE OFcTnI DISTRIBUTION IN A REFERENCE POPULATION, HAS BEEN CONFIRMED THE DECISION THRESHOLDFOR [place] DIAGNOSIS. Performed By: #### H STROPN ####[facility] Oguaqutbsx5413 [place] [address]Dr. Garima Pulliam HSTROP 9.2 pg/mL Normal 4.0-76.1 [facility] Comment on above: Result Comment: CUT- OFF POINTS HAVE BEEN ESTABLISHED BASED ON THE FOURTH UNIVERSAL DEFINITIONS OF MYOCARDIALINFARCTION. THE UPPER REFERENCE LIMIT (URL) OF TROPONIN, DEFINED THE 99TH PERCENTILE OFcTnI DISTRIBUTION IN A REFERENCE POPULATION, HAS BEEN CONFIRMED THE DECISION THRESHOLDFOR [place] DIAGNOSIS. Performed By: #### C MP, BNP, HSTROPN ####[facility] Nrfxznjgtt2099 [place] [address]Dr. Garima Pulliam XR CHEST 1 Von 01-12-2023 XR CHEST 1 V Normal [facility] XR CHEST 1 Von 01-01-2023 XR CHEST [address] [facility] CARDIAC NASH 3-6on 3 CK [Catalytic activity/Vol] 196 U/L Normal 39-308 [facility] Comment on above: Performed By: #### C MREP ####[facility] Cqscikxkhb6892 [place] [address]Dr. Garima Pulliam CK.MB [Mass/Vol] 7.41 ng/mL Critically high <=3.60 [facility] Comment on above: Performed By: #### C MREP ####[facility] Ssoqxjiqlq4562 [place] [address]Dr. Garima Pulliam HSTROP 10.3 pg/mL Normal 4.0-76.[address] [facility] Comment on above: Result Comment: CUT- OFF POINTS HAVE BEEN ESTABLISHED BASED ON THE FOURTH UNIVERSAL DEFINITIONS OF MYOCARDIALINFARCTION. THE UPPER REFERENCE LIMIT (URL) OF TROPONIN, DEFINED THE 99TH PERCENTILE OFcTnI DISTRIBUTION IN A REFERENCE POPULATION, HAS BEEN CONFIRMED THE DECISION THRESHOLDFOR [place] DIAGNOSIS. Performed By: #### C MREP ####[facility] Cvkceregva8033 [place] [id number]. Garima Pulliam XR CHEST 1 Von 12-26-2022 XR CHEST 1 V Normal [facility] BNPon 12-25-2022 Natriuretic peptide B (Bld) [Mass/Vol] 98.0 pg/mL Normal <=900.[address] [facility] Comment on above: Performed By: #### B MARVIN FRENCH CMADM ####[facility] Pvzrdcdkxo2085 [place] [address]Dr. Garima Pulliam CARDIAC NASH ADMITon 023 CK [Catalytic activity/Vol] 208 U/L Normal 39-[address] [facility] Comment on above: Performed By: #### B MARVIN FRENCH CMADM ####[facility] Vddtrdbaoi8780 [place] [address]Dr. Garima Pulliam CK.MB [Mass/Vol] 7.63 ng/mL Critically high <=3.[address] [facility] Comment on above: Performed By: #### B MARVIN FRENCH CMADM ####[facility] Bvtqvixhml8[address] [place], [place] [address]Dr. Garima Pulliam HSTROP 8.8 pg/mL Normal 4.0-76.[address] [facility] Comment on above: Result Comment: CUT- OFF POINTS HAVE BEEN ESTABLISHED BASED ON THE FOURTH UNIVERSAL DEFINITIONS OF MYOCARDIALINFARCTION. THE UPPER REFERENCE LIMIT (URL) OF TROPONIN, DEFINED THE 99TH PERCENTILE OFcTnI DISTRIBUTION IN A REFERENCE POPULATION, HAS BEEN CONFIRMED THE DECISION THRESHOLDFOR [place] DIAGNOSIS. Performed By: #### B MARVIN FRENCH CMADM ####[facility] Uqryulqewe5667[address] [place], [place] [address]Dr. Garima Pulliam DORIS 83 ng/mL Normal 16-[address] [facility] Comment on above: Performed By: #### B MARVIN FRENCH CMADM ####[facility] Dgqdwyoylo9[address] [place], [place] [address]Dr. Garima Pulliam CBC AUTO DIFFon 12-25-2022 BASO # 0.0 103/ul Normal 0.0-0.[address] [facility] Comment on above: Performed By: #### C BC ####[facility] Jbiayddxof8398[address] [place], [place] [address]Dr. Garima Pulliam Basophils/100 WBC (Bld) 0.0 % Critically low 0.2-2.[address] [facility] Comment on above: Performed By: #### C BC ####[facility] Lekxendlwo3831 [place] [address]Dr. Garima Pulliam EO # 0.0 103/ul Normal 0.0-0.[address] [facility] Comment on above: Performed By: #### C BC ####[facility] Mvvpzwrgiv3914[address] [place], [place] [address]Dr. Garima Pulliam Eosinophils/100 WBC (Bld) 0.7 % Critically low 0.9-7.0 [facility] Comment on above: Performed By: #### C BC ####[facility] Khrnmftmqa37[address] [place], [place] [address]Dr. Garima Pulliam Erythrocyte distribution width (RBC) [Ratio] 13.4 % Normal 11.0-15.0 [facility] Comment on above: Performed By: #### C BC ####[facility] Cnqnvohirz2376[address] [place], [place] [address]Dr. Garima Pulliam Hematocrit (Bld) [Volume fraction] 42.9 % Normal 42.0-54.0 [facility] Comment on above: Performed By: #### C BC ####[facility] Xvyqnhjsxe0868[address] [place], [place] [address]Dr. Garima Pulliam Hemoglobin (Bld) [Mass/Vol] 14.4 g/dL Normal 14.0-18.0 [facility] Comment on above: Performed By: #### C BC ####[facility] Ohkbqkdvsr022[address] [place], [place] [address]Dr. Garima Pulliam IG # 0.00 10e3/ul Normal 0.00-0.[address] [facility] Comment on above: Performed By: #### C BC ####[facility] Nfqaemilzh3511[address] [place], [place] [address]Dr. Garima Pulliam IG % 0.0 % Normal 0.0-0.[address] [facility] Comment on above: Performed By: #### C BC ####[facility] Mhdwbozpjw1125[address] [place], [place] [address]Dr. Garima Pulliam LYMPH # 2.4 103/ul Normal 1.2-3.[address] [facility] Comment on above: Performed By: #### C BC ####[facility] Fsguhbjomc5177 [place] [id number]. Chapisrenu Pulliam Lymphocytes/100 WBC (Bld) 29.2 % Normal 20.5-60.0 [facility] Comment on above: Performed By: #### C BC ####[facility] Szmopstegu8630 [place] [phone]. Garima Pulliam MANUAL DIFF REQ NO Normal [facility] Comment on above: Performed By: #### C BC ####[facility] Lbjljgtktg5602 [place] [phone]. Garima Pulliam MCH (RBC) [Entitic mass] 30.7 pg Normal 25.9-34.0 [facility] Comment on above: Performed By: #### C BC ####[facility] Pwjhyqnedo[address] [place], [place] [address]Dr. Garima Pulliam MCHC (RBC) [Mass/Vol] 33.6 g/dL Normal 29.9-35.[address] [facility] Comment on above: Performed By: #### C BC ####[facility] Yrhjiukdnj2125[address] [place], [place] [address]Dr. Garima Pulliam MCV (RBC) [Entitic vol] 91.5 fL Normal 80.0-94.0 [facility] Comment on above: Performed By: #### C BC ####[facility] Mlqnmftssh60[address] [place], [place] [address]Dr. Garima Pulliam MONO # 0.0 103/ul Critically low 0.3-0.8 [facility] Comment on above: Performed By: #### C BC ####[facility] Gcwhewwvlq5247 [place] [address]Dr. Garima Pulliam Monocytes/100 WBC (Bld) 8.0 % Normal 1.7-12.[address] [facility] Comment on above: Performed By: #### C BC ####[facility] Kiscufhswt4[address] [place], [place] [address]Dr. Garima Pulliam NEUT # 5.1 103/ul Normal 1.4-6.[address] [facility] Comment on above: Performed By: #### C BC ####[facility] Lrvfrphywm7214 [place], [place] [address]Zu. Garima Pulliam Neutrophils/100 WBC (Bld) 62.8 % Normal 43.0-75.0 [facility] Comment on above: Performed By: #### C BC ####[facility] Vxcpqskqcv7230 [place], [place] [address]Nw. Garima Pulliam Platelet mean volume (Bld) [Entitic vol] 8.6 fL Critically low 9.5-13.5 [facility] Comment on above: Performed By: #### C BC ####[facility] Nnpgbjdakz3476 [place] [id number]. Garima Pulliam PLT 200 103/ul Normal 150-[address] [facility] Comment on above: Performed By: #### C BC ####[facility] Hlcoftuisu8596 [place] [id number]. Garima Pulliam RBC 4.69 106/ul Critically low 4.70-6.10 [facility] Comment on above: Performed By: #### C BC ####[facility] Bybhfcwusj2604 [place], [place] [address]Ql. Garima Pulliam WBC 8.2 103/ul Normal 4.0-11.0 [facility] Comment on above: Performed By: #### C BC ####[facility] Ngzkegcbht1855 [place], [place] [address]Gr. Garima Pulliam [facility]on SARS-CoV-2 (COVID-19) RNA MARIE+probe Ql (Unsp spec) Not detected Normal NOT DETECTED [facility] Comment on above: Result Comment: When [...] for this test is supported by the [place] of [employer] and Human Service's declaration that [...] used). Performed By: #### C VDTBH ####[facility] Mketyuteio0890[address] [place], [place] [address]Dr. Garima Pulliam INFLUENZA A AND B AGon 12-25 INFLUANEGH SEE BELOW Normal [facility] Comment on above: Result Comment: Nega tive for Flu A protein angiten. Infection due to Flu A cannot be ruled out. Flu A angiten in the sample may be below the detection limit of the test. Performed By: #### I NFLUAB ####[facility] Yyromjfrhh1804[address] [place], [place] [address]Dr. Garima Pulliam INFLUBNEGH SEE BELOW Normal [facility] Comment on above: Result Comment: Nega tive for Flu B protein antigen. Infection due to Flu B cannot be ruled out. Flu B antigen in the sample may be below the detection limit of the test. Performed By: #### I NFLUAB ####[facility] Yrdsocxndo37[address] [place], [place] [address]Dr. Garima Pulliam INFLUENZA A AG Negative Normal NEGATIVE SEE COMMENT [facility] Comment on above: Performed By: #### I NFLUAB ####[facility] Dzpfsiteli220[address] [place], [place] [address]Dr. renu [facility] INFLUENZA B AG Negative Normal NEGATIVE SEE COMMENT [facility] Comment on above: Performed By: #### I NFLUAB ####[facility] Knqpgeintb7696[address] [place], [place] [address]Dr. Garima Pulliam PROF CHEM 8 (BAS METB)on Anion gap [Moles/Vol] 11.1 mmol/L Normal [facility] Comment on above: Performed By: #### B DOT COMPLIANCE SPECIALIST, BMP, CMADM ####[facility] Mnsuaryhwh7[address] [place], [place] [address]Dr. Garima Pulliam Calcium [Mass/Vol] 8.5 mg/dL Normal 8.5-10.[address] [facility] Comment on above: Performed By: #### B DOT COMPLIANCE SPECIALIST, MARVIN, CMADM ####[facility] Hmwzrtaqvk0919 [place] [id number]. Garima Pulliam Chloride [Moles/Vol] 106 mmol/L Normal 98-107 [facility] Comment on above: Performed By: #### B DOT COMPLIANCE SPECIALIST, BMP, CMADM ####[facility] Qgorpvctoq7945 [place] [address]Dr. Garima Pulliam CO2 [Moles/Vol] 27.4 mmol/L Normal 21.0-32.0 [facility] Comment on above: Performed By: #### B DOT COMPLIANCE SPECIALIST, MARVIN, CMADM ####[facility] Fmwguybymg8101 [place] [address]Dr. Garima Pulliam Creatinine [Mass/Vol] 0.65 mg/dL Critically low 0.70-1.30 [facility] Comment on above: Performed By: #### B DOT COMPLIANCE SPECIALIST, MARVIN, CMADM ####[facility] Mwxspcinpf5820 [place] [address]Dr. Garima Pulliam EGFR-AF BRAZILIAN >60 Normal >=60 [facility] Comment on above: Performed By: #### B DOT COMPLIANCE SPECIALIST, BMP, CMADM ####[facility] Otytgtxqys2980 [place] [address]Dr. Garima Pulliam EGFR-NON AF BRAZILIAN >60 Normal >=60 [facility] Comment on above: Performed By: #### B DOT COMPLIANCE SPECIALIST, BMP, CMADM ####[facility] Ofbfwigsqa0959 [place] [address]Dr. Garima Pulliam Glucose [Mass/Vol] 140 mg/dL Critically high 74-106 [facility] Comment on above: Performed By: #### B DOT COMPLIANCE SPECIALIST, BMP, CMADM ####[facility] Zchwcxgeeu5833 [place] [address]Dr. Garima Pulliam Potassium [Moles/Vol] 3.5 mmol/L Normal 3.5-5.1 [facility] Comment on above: Performed By: #### B DOT COMPLIANCE SPECIALIST, BMP, CMADM ####[facility] Mqgwskfdtj7822 [place] [address]Dr. Garima Pulliam Sodium [Moles/Vol] 141 mmol/L Normal 136-145 [facility] Comment on above: Performed By: #### B DOT COMPLIANCE SPECIALIST, BMP, CMADM ####[facility] Odcwhlbpfu4380 [place] [address]Dr. Garima Pulliam Urea nitrogen [Mass/Vol] 8.0 mg/dL Normal 7.0-18.0 [facility] Comment on above: Performed By: #### B DOT COMPLIANCE SPECIALIST, BMP, CMADM ####[facility] Bzlakdbcuj3937 [place] [address]Dr. Garima Pulliam Urea nitrogen/Creatinine [Mass ratio] 12.3 mg/mg Normal [facility] Comment on above: Performed By: #### B DOT COMPLIANCE SPECIALIST, BMP, CMADM ####[facility] Ikdktlieqs32[address] [place], [place] [address]Dr. Garima Pulliam CARDIAC NASH ADMITon 023 CK [Catalytic activity/Vol] 165 U/L Normal 39-308 [facility] Comment on above: Performed By: #### B DAVID, CMADM ####[facility] Kkznerhuon[address] [place], [place] [address]Dr. Garima Pulliam CK.MB [Mass/Vol] 6.48 ng/mL Critically high <=3.60 [facility] Comment on above: Performed By: #### B MP, CMADM ####[facility] Tmnjjnprmm[address] [place], [place] [address]Dr. Garima Pulliam HSTROP 11.7 pg/mL Normal 4.0-76.1 [facility] Comment on above: Result Comment: CUT- OFF POINTS HAVE BEEN ESTABLISHED BASED ON THE FOURTH UNIVERSAL DEFINITIONS OF MYOCARDIALINFARCTION. THE UPPER REFERENCE LIMIT (URL) OF TROPONIN, DEFINED THE 99TH PERCENTILE OFcTnI DISTRIBUTION IN A REFERENCE POPULATION, HAS BEEN CONFIRMED THE DECISION THRESHOLDFOR [place] DIAGNOSIS. Performed By: #### B MP, CMADM ####[facility] Hedjevvaqj4[address] [place], [place] [address]Dr. Garima Pulliam DORIS 83 ng/mL Normal 16-[address] [facility] Comment on above: Performed By: #### B MP, CMADM ####[facility] Zmgcdngnmz28[address] [place] [address]Dr. Garima Pulliam CBC AUTO DIFFon 12-10-2022 BASO # 0.0 103/ul Normal 0.0-0.[address] [facility] Comment on above: Performed By: #### C BC ####[facility] Nepjgcsiky[address] [place], [place] [address]Dr. Garima Heraclio Basophils/100 WBC (Bld) 0.3 % Normal 0.2-2.[address] [facility] Comment on above: Performed By: #### C BC ####[facility] Cygrheovyy99[address] [place], [place] [address]Dr. Garima Pulliam EO # 0.1 103/ul Normal 0.0-0.[address] [facility] Comment on above: Performed By: #### C BC ####[facility] Ffpduyxmny9347[address] [place], [place] [address]Dr. Garima Pulliam Eosinophils/100 WBC (Bld) 0.4 % Critically low 0.9-7.[address] [facility] Comment on above: Performed By: #### C BC ####[facility] Lvmkssdonx84[address] [place], [place] [address]Dr. Garima Pulliam Erythrocyte distribution width (RBC) [Ratio] 13.2 % Normal 11.0-15.[address] [facility] Comment on above: Performed By: #### C BC ####[facility] Qdrnsusttm846[address] [place], [place] [address]Dr. Garima Pulliam Hematocrit (Bld) [Volume fraction] 42.4 % Normal 42.0-54.[address] [facility] Comment on above: Performed By: #### C BC ####[facility] Cyjzruowzd[address] [place], [place] [address]Dr. Garima Pulliam Hemoglobin (Bld) [Mass/Vol] 14.4 g/dL Normal 14.0-18.[address] [facility] Comment on above: Performed By: #### C BC ####[facility] Jabfwrmuyj0331 [place] [id number]. Garima Heraclio IG # 0.05 10e3/ul Critically high 0.00-0.03 [facility] Comment on above: Performed By: #### C BC ####[facility] Hxudbkggxl9292 [place] [address]Dr. Garima Heraclio IG % 0.4 % Normal 0.0-0.[address] [facility] Comment on above: Performed By: #### C BC ####[facility] Cbrsaqqazf9484[address] [place], [place] [address]Dr. Garima Pulliam LYMPH # 0.8 103/ul Critically low 1.2-3.8 [facility] Comment on above: Performed By: #### C BC ####[facility] Ekmezmckil5466[address] [place], [place] [address]Dr. Chapisrenu Pulliam Lymphocytes/100 WBC (Bld) 6.5 % Critically low 20.5-60.[address] [facility] Comment on above: Performed By: #### C BC ####[facility] Hsiuonyshk8[address] [place], [place] [address]Dr. Chapisrenu Pulliam MANUAL DIFF REQ NO Normal [facility] Comment on above: Performed By: #### C BC ####[facility] Vsovecdogz0109[address] [place], [place] [address]DrAdalberto Garima Pulliam MCH (RBC) [Entitic mass] 30.5 pg Normal 25.9-34.[address] [facility] Comment on above: Performed By: #### C BC ####[facility] Zkrikddvxs045[address] [place], [place] [address]DrAdalberto Garima Heraclio MCHC (RBC) [Mass/Vol] 34.0 g/dL Normal 29.9-35.[address] [facility] Comment on above: Performed By: #### C BC ####[facility] Uzgstaajbe5723[address] [place], [place] [address]DrAdalberto Garima Heraclio MCV (RBC) [Entitic vol] 89.8 fL Normal 80.0-94.[address] [facility] Comment on above: Performed By: #### C BC ####[facility] Uphsjefzay[address] [place], [place] [address]Dr. Garima Pulliam MONO # 0.2 103/ul Critically low 0.3-0.8 [facility] Comment on above: Performed By: #### C BC ####[facility] Brvhtwintb4727 [place] [id number]. Garima Pulliam Monocytes/100 WBC (Bld) 2.0 % Normal 1.7-12.[address] [facility] Comment on above: Performed By: #### C BC ####[facility] Abrgwkfvtj5407 [place] [address]Dr. Chapisrenu Heraclio NEUT # 10.5 103/ul Critically high 1.4-6.5 The [facility] Comment on above: Performed By: #### C BC ####[facility] Zdpuwibgbh7616 [place] [address]Dr. Garima Pulliam Neutrophils/100 WBC (Bld) 90.4 % Critically high 43.0-75.[address] [facility] Comment on above: Performed By: #### C BC ####[facility] Fnsnkntcek3532 [place] [address]Dr. Garima Pulliam Platelet mean volume (Bld) [Entitic vol] 9.4 fL Critically low 9.5-13.[address] [facility] Comment on above: Performed By: #### C BC ####[facility] Vyjwlnabdn6732 [place] [address]Dr. Garima Pulliam PLT 198 103/ul Normal 150-[address] [facility] Comment on above: Performed By: #### C BC ####[facility] Uujmjtyhby0920 [place] [address]Dr. Garima Pulliam RBC 4.72 106/ul Normal 4.70-6.[address] [facility] Comment on above: Performed By: #### C BC ####[facility] Yefnjmiytr0432 [place] [id number]. Garima Pulliam WBC 11.6 103/ul Critically high 4.0-11.0 [facility] Comment on above: Performed By: #### C BC ####[facility] Bghmavvlcp9924 [place] [address]DrAdalberto Pulliam PROF CHEM 8 (BAS METB)on Anion gap [Moles/Vol] 11.3 mmol/L Normal [facility] Comment on above: Performed By: #### B NANCY HERNANDEZ ####[facility] Bwlgjngqdf6295 [place] [address]Dr. Garima Pulliam Calcium [Mass/Vol] 8.9 mg/dL Normal 8.5-10.1 [facility] Comment on above: Performed By: #### B NANCY HERNANDEZ ####[facility] Acwrvicech0796 [place] [address]Dr. Garima Pulliam Chloride [Moles/Vol] 103 mmol/L Normal 98-107 [facility] Comment on above: Performed By: #### B NANCY HERNANDEZ ####[facility] Czkfpihhpm60[address] [place], [place] [address]Dr. Garima Pulliam CO2 [Moles/Vol] 28.2 mmol/L Normal 21.0-32.0 [facility] Comment on above: Performed By: #### NANCY Larkin MP ####[facility] Opggtifpgp2059 [place] [address]Dr. Chapisrenu Pulliam Creatinine [Mass/Vol] 0.60 mg/dL Critically low 0.70-1.30 [facility] Comment on above: Performed By: #### NANCY Larkin MP ####[facility] Ppaludqyfm5237 [place] [address]Dr. Garima Pulliam EGFR-AF BRAZILIAN >60 Normal >=60 [facility] Comment on above: Performed By: #### NANCY Larkin MP ####[facility] Mrmwaerudk8189 [place] [address]Dr. Garima Pulliam EGFR-NON AF BRAZILIAN >60 Normal >=60 [facility] Comment on above: Performed By: #### NANCY Larkin MP ####[facility] Bypfvxswme0050[address] [place], [place] [address]Dr. Garima Pulliam Glucose [Mass/Vol] 166 mg/dL Critically high 74-106 [facility] Comment on above: Performed By: #### B MP, CMADM ####[facility] Bpxdroaxmh6828 [place] [address]Dr. Garima Pulliam Potassium [Moles/Vol] 3.5 mmol/L Normal 3.5-5.[address] [facility] Comment on above: Performed By: #### B MP, CMADM ####[facility] Zviqjvjinq3402 [place] [address]Dr. Garima Pulliam Sodium [Moles/Vol] 139 mmol/L Normal 136-[address] [facility] Comment on above: Performed By: #### B DAVID, CMADM ####[facility] Scnnbgohmb7135 [place] [address]Dr. Garima Heraclio Urea nitrogen [Mass/Vol] 9.0 mg/dL Normal 7.0-18.[address] [facility] Comment on above: Performed By: #### B DAVID, NANCY ####[facility] Fazvxkyzpt3934[address] [place], [place] [address]Dr. Garima Heraclio Urea nitrogen/Creatinine [Mass ratio] 15.0 mg/mg Normal [facility] Comment on above: Performed By: #### B DAVID, CMAANA ROSA ####[facility] Drdafljecy7699[address] [place], [place] [address]Dr. Garima Pulliam XR CHEST 1 Von 12-10-2022 XR CHEST [address] [facility] BNPon 11-27-2022 Natriuretic peptide B (Bld) [Mass/Vol] 95.0 pg/mL Normal <=900.[address] [facility] Comment on above: Performed By: #### C MP, HSTROPN, BNP ####[facility] Fvpwfyhktm4386[address] [place], [place] [address]Dr. Garima Heraclio CBC AUTO DIFFon 11-27-2022 BASO # 0.0 103/ul Normal 0.0-0.[address] [facility] Comment on above: Performed By: #### C BC ####[facility] Etjzzophps6[address] [place], [place] [address]Dr. Garima Heraclio Basophils/100 WBC (Bld) 0.2 % Normal 0.2-2.[address] [facility] Comment on above: Performed By: #### C BC ####[facility] Craosjmpej9591 [place] [id number]. Garima Pulliam EO # 0.2 103/ul Normal 0.0-0.[address] [facility] Comment on above: Performed By: #### C BC ####[facility] Wcplxcljrg0681 [place] [id number]. Garima Pulliam Eosinophils/100 WBC (Bld) 2.0 % Normal 0.9-7.[address] [facility] Comment on above: Performed By: #### C BC ####[facility] Qajeteofok0966[address] [place], [place] [address]Dr. Garima Pulliam Erythrocyte distribution width (RBC) [Ratio] 13.2 % Normal 11.0-15.[address] [facility] Comment on above: Performed By: #### C BC ####[facility] Wkiirvrsla1390[address] [place], [place] [address]Dr. Garima Pulliam Hematocrit (Bld) [Volume fraction] 42.4 % Normal 42.0-54.[address] [facility] Comment on above: Performed By: #### C BC ####[facility] Myxgvgkvop7065[address] [place], [place] [address]Dr. Garima Pulliam Hemoglobin (Bld) [Mass/Vol] 14.4 g/dL Normal 14.0-18.[address] [facility] Comment on above: Performed By: #### C BC ####[facility] Cpdmhdgnnq3546[address] [place], [place] [address]Dr. Garima Pulliam IG # 0.04 10e3/ul Critically high 0.00-0.03 [facility] Comment on above: Performed By: #### C BC ####[facility] Wwncttbnor3258[address] [place], [place] [address]Dr. Garima Pulliam IG % 0.4 % Normal 0.0-0.[address] [facility] Comment on above: Performed By: #### C BC ####[facility] Tasbynszsr280[address] [place], [place] [address]Dr. Garima Pulliam LYMPH # 2.2 103/ul Normal 1.2-3.[address] [facility] Comment on above: Performed By: #### C BC ####[facility] Nnslkrqvhd0906 [place] [id number]. Gairma Pulliam Lymphocytes/100 WBC (Bld) 21.5 % Normal 20.5-60.[address] [facility] Comment on above: Performed By: #### C BC ####[facility] Kjbbtcvett3298 [place] [id number]. Garima Heraclio MANUAL DIFF REQ NO Normal [facility] Comment on above: Performed By: #### C BC ####[facility] Fakemrvyct0392 [place] [id number]. Garima Heraclio MCH (RBC) [Entitic mass] 30.4 pg Normal 25.9-34.[address] [facility] Comment on above: Performed By: #### C BC ####[facility] Qitxalspna0141 [place] [address]Dr. Garima Heraclio MCHC (RBC) [Mass/Vol] 34.0 g/dL Normal 29.9-35.[address] [facility] Comment on above: Performed By: #### C BC ####[facility] Nncbweipgz6262 [place] [id number]. Garima Pulliam MCV (RBC) [Entitic vol] 89.6 fL Normal 80.0-94.[address] [facility] Comment on above: Performed By: #### C BC ####[facility] Qyyccestzf0988 [place] [id number]. Garima Pulliam MONO # 0.8 103/ul Normal 0.3-0.[address] [facility] Comment on above: Performed By: #### C BC ####[facility] Veqgpesoxd5428 [place] [id number]. Chapisrenu Pulliam Monocytes/100 WBC (Bld) 7.7 % Normal 1.7-12.[address] [facility] Comment on above: Performed By: #### C BC ####[facility] Zlyihnkmhz1986[address] [place], [place] [address]Dr. Garima Pulliam NEUT # 7.0 103/ul Critically high 1.4-6.[address] [facility] Comment on above: Performed By: #### C BC ####[facility] Nocxwwudpv9540 [place] [id number]. Garima Pulliam Neutrophils/100 WBC (Bld) 68.2 % Normal 43.0-75.0 [facility] Comment on above: Performed By: #### C BC ####[facility] Xnlgsuthla6065 [place] [id number]. Chapisrenu Pulliam Platelet mean volume (Bld) [Entitic vol] 8.9 fL Critically low 9.5-13.5 [facility] Comment on above: Performed By: #### C BC ####[facility] Rqdtvryuqk8255 [place] [address]Dr. Garima Pulliam PLT 222 103/ul Normal 150-450 [facility] Comment on above: Performed By: #### C BC ####[facility] Mbyykfvmva3342 [place] [address]Dr. Garima Pulliam RBC 4.73 106/ul Normal 4.70-6.[address] [facility] Comment on above: Performed By: #### C BC ####[facility] Ketrmthulf9592 [place] [address]Dr. Garima Pulliam WBC 10.3 103/ul Normal 4.0-11.0 [facility] Comment on above: Performed By: #### C BC ####[facility] Jsupwlaydd2374 [place] [address]Dr. Garima Pulliam PROF 14(COMP METB)on 023 Albumin [Mass/Vol] 3.7 g/dL Normal 3.4-5.0 [facility] Comment on above: Performed By: #### C MP, HSTROPN, BNP ####[facility] Kqeurhhycs7814 [place] [address]Dr. Chapisrenu Pulliam Albumin/Globulin [Mass ratio] 1.5 {ratio} Normal [facility] Comment on above: Performed By: #### C MP, HSTROPN, BNP ####[facility] Dbuovaqfoa3055 [place] [address]Dr. Garima Pulliam ALP [Catalytic activity/Vol] 79 U/L Normal 46-[address] [facility] Comment on above: Performed By: #### C MP, HSTROPN, BNP ####[facility] Ufikhereia5786 [place] [address]Dr. Garima Pulliam ALT [Catalytic activity/Vol] 32 U/L Normal 16-63 [facility] Comment on above: Performed By: #### C MP, HSTROPN, BNP ####[facility] Djcahaphwj7397 [place] [address]Dr. Garima Pulliam Anion gap [Moles/Vol] 9.5 mmol/L Normal [facility] Comment on above: Performed By: #### C MP, HSTROPN, BNP ####[facility] Lgxrknlmoa358[address] [place], [place] [address]Dr. Garima Pulliam AST [Catalytic activity/Vol] 25 U/L Normal 15-37 [facility] Comment on above: Performed By: #### C MP, HSTROPN, BNP ####[facility] Skwjljmfdw1237[address] [place], [place] [address]Dr. Chapislan Pulliam Bilirubin [Mass/Vol] 0.4 mg/dL Normal 0.2-1.[address] [facility] Comment on above: Performed By: #### C MP, HSTROPN, BNP ####[facility] Npzzoofmws8078[address] [place], [place] [address]Dr. Garima Pulliam Calcium [Mass/Vol] 8.9 mg/dL Normal 8.5-10.1 [facility] Comment on above: Performed By: #### C MP, HSTROPN, BNP ####[facility] Hhybuviqcu0676[address] [place], [place] [address]Dr. Chapislan Pulliam Chloride [Moles/Vol] 103 mmol/L Normal 98-[address] [facility] Comment on above: Performed By: #### C MP, HSTROPN, BNP ####[facility] Fbjvtmumcm080[address] [place], [place] [address]Dr. Yilan Pulliam CO2 [Moles/Vol] 28.6 mmol/L Normal 21.0-32.0 [facility] Comment on above: Performed By: #### C MP, HSTROPN, BNP ####[facility] Wfyvnqipbp6604 [place] [address]Dr. Garima Pulliam Creatinine [Mass/Vol] 0.72 mg/dL Normal 0.70-1.30 [facility] Comment on above: Performed By: #### C MP, HSTROPN, BNP ####[facility] Vfjjhdgxhc4831 [place] [address]Dr. Garima Pulliam EGFR-AF BRAZILIAN >60 Normal >=60 [facility] Comment on above: Performed By: #### C MP, HSTROPN, BNP ####[facility] Vfdywlqcmk7968 [place] [address]Dr. Garima Pulliam EGFR-NON AF BRAZILIAN >60 Normal >=60 [facility] Comment on above: Performed By: #### C MP, HSTROPN, BNP ####[facility] Ieigvkthrj1702 [place] [address]Dr. Garima Pulliam Globulin (S) [Mass/Vol] 2.5 g/dL Normal [facility] Comment on above: Performed By: #### C MP, HSTROPN, BNP ####[facility] Lbadxepfxi2296[address] [place], [place] [address]Dr. Garima Pulliam Glucose [Mass/Vol] 114 mg/dL Critically high 74-106 [facility] Comment on above: Performed By: #### C MP, HSTROPN, BNP ####[facility] Xlipxnovtw844[address] [place], [place] [address]Dr. Garima Pulliam Potassium [Moles/Vol] 4.1 mmol/L Normal 3.5-5.1 [facility] Comment on above: Performed By: #### C MP, HSTROPN, BNP ####[facility] Fjczpnvfxv8808[address] [place], [place] [address]Dr. Garima Pulliam Protein [Mass/Vol] 6.2 g/dL Critically low 6.4-8.2 [facility] Comment on above: Performed By: #### C MP, HSTROPN, BNP ####[facility] Zqecnydrzj660[address] [place], [place] [address]Dr. Yilan Pulliam Sodium [Moles/Vol] 137 mmol/L Normal 136-[address] [facility] Comment on above: Performed By: #### C MP, HSTROPN, BNP ####[facility] Ajtxhedghk3999 [place] [address]Dr. Garima Pulliam Urea nitrogen [Mass/Vol] 13.0 mg/dL Normal 7.0-18.0 [facility] Comment on above: Performed By: #### C MP, HSTROPN, BNP ####[facility] Wfapcbbrrx2850 [place] [address]Dr. Garima Pulliam Urea nitrogen/Creatinine [Mass ratio] 18.1 mg/mg Normal [facility] Comment on above: Performed By: #### C MP, HSTROPN, BNP ####[facility] Hvdfigzwog6348[address] [place], [place] [address]Dr. Garima Pulliam TROPONIN, HIGH SENSITIVITYon 11-27-2022 HSTROP 11.8 pg/mL Normal 4.0-76.1 [facility] Comment on above: Result Comment: CUT- OFF POINTS HAVE BEEN ESTABLISHED BASED ON THE FOURTH UNIVERSAL DEFINITIONS OF MYOCARDIALINFARCTION. THE UPPER REFERENCE LIMIT (URL) OF TROPONIN, DEFINED THE 99TH PERCENTILE OFcTnI DISTRIBUTION IN A REFERENCE POPULATION, HAS BEEN CONFIRMED THE DECISION THRESHOLDFOR [place] DIAGNOSIS. Performed By: #### C MP, HSTROPN, BNP ####[facility] Spyajtkaqc0930[address] [place], [place] [address]Dr. Garima Pulliam XR CHEST 1 Von 11-27-2022 XR CHEST [address] [facility] BNPon 11-20-2022 Natriuretic peptide B (Bld) [Mass/Vol] 73.0 pg/mL Normal <=900.[address] [facility] Comment on above: Performed By: #### B MP, HSTROPN, BNP ####[facility] Blimqktgzv6118[address] [place], [place] [address]Dr. Garima Pulliam CBC AUTO DIFFon 11-20-2022 BASO # 0.0 103/ul Normal 0.0-0.1 [facility] Comment on above: Performed By: #### C BC ####[facility] Mnfiskqrwo9343 [place] [id number]. Garima Pulliam Basophils/100 WBC (Bld) 0.3 % Normal 0.2-2.[address] [facility] Comment on above: Performed By: #### C BC ####[facility] Lzeuikbtoo2589 [place] [id number]. Garima Pulliam EO # 0.2 103/ul Normal 0.0-0.[address] [facility] Comment on above: Performed By: #### C BC ####[facility] Fcuacemapu5421 [place] [address]Dr. Garima Pulliam Eosinophils/100 WBC (Bld) 2.1 % Normal 0.9-7.[address] [facility] Comment on above: Performed By: #### C BC ####[facility] Nxrowwasft5627[address] [place], [place] [address]Dr. Garima Pulliam Erythrocyte distribution width (RBC) [Ratio] 13.2 % Normal 11.0-15.[address] [facility] Comment on above: Performed By: #### C BC ####[facility] Rpgwmowxil349[address] [place], [place] [address]Dr. Garima Pulliam Hematocrit (Bld) [Volume fraction] 43.4 % Normal 42.0-54.[address] [facility] Comment on above: Performed By: #### C BC ####[facility] Onxgnzspre9[address] [place], [place] [address]Dr. Garima Pulliam Hemoglobin (Bld) [Mass/Vol] 14.6 g/dL Normal 14.0-18.[address] [facility] Comment on above: Performed By: #### C BC ####[facility] Frrjtzvjdg5228 [place] [id number]. Garima Pulliam IG # 0.02 10e3/ul Normal 0.00-0.[address] [facility] Comment on above: Performed By: #### C BC ####[facility] Ldtiqeqpnu4756 [place] [address]Dr. Garima Pulliam IG % 0.2 % Normal 0.0-0.[address] [facility] Comment on above: Performed By: #### C BC ####[facility] Ryduhpphgf8277 [place] [id number]. Garima Heraclio LYMPH # 2.1 103/ul Normal 1.2-3.[address] [facility] Comment on above: Performed By: #### C BC ####[facility] Yjojxxtjqn7860 [place] [address]Dr. Garima Heraclio Lymphocytes/100 WBC (Bld) 19.2 % Critically low 20.5-60.[address] [facility] Comment on above: Performed By: #### C BC ####[facility] Nrsfdlpftk6160 [place] [id number]. Chapisrenu Pulliam MANUAL DIFF REQ NO Normal [facility] Comment on above: Performed By: #### C BC ####[facility] Rngjrgofsh3667 [place] [phone]. Garima Heraclio MCH (RBC) [Entitic mass] 30.4 pg Normal 25.9-34.[address] [facility] Comment on above: Performed By: #### C BC ####[facility] Ydrxkgdrqd7285 [place] [address]Dr. Garima Pulliam MCHC (RBC) [Mass/Vol] 33.6 g/dL Normal 29.9-35.[address] [facility] Comment on above: Performed By: #### C BC ####[facility] Sezhbdmdzv9590 [place] [id number]. Garima Heraclio MCV (RBC) [Entitic vol] 90.4 fL Normal 80.0-94.[address] [facility] Comment on above: Performed By: #### C BC ####[facility] Buwgnuhfkr9971 [place] [id number]. Garima Heraclio MONO # 0.6 103/ul Normal 0.3-0.[address] [facility] Comment on above: Performed By: #### C BC ####[facility] Bbzpslpxvx7685 [place] [address]Dr. Garima Heraclio Monocytes/100 WBC (Bld) 5.8 % Normal 1.7-12.[address] [facility] Comment on above: Performed By: #### C BC ####[facility] Dpourfjqti2195 [place], [place] [address]Di. Garima Pulliam NEUT # 7.8 103/ul Critically high 1.4-6.[address] [facility] Comment on above: Performed By: #### C BC ####[facility] Cnwpbxahoc4574 [place] [id number]. Garima Pulliam Neutrophils/100 WBC (Bld) 72.4 % Normal 43.0-75.[address] [facility] Comment on above: Performed By: #### C BC ####[facility] Gufwcohcxz0459 [place] [id number]. Garima Pulliam Platelet mean volume (Bld) [Entitic vol] 8.7 fL Critically low 9.5-13.[address] [facility] Comment on above: Performed By: #### C BC ####[facility] Yhqefeeibz4874 [place] [id number]. Garima Pulliam PLT 184 103/ul Normal 150-[address] [facility] Comment on above: Performed By: #### C BC ####[facility] Gczstusuwb2437 [place], [place] [address]Tw. Garima Pulliam RBC 4.80 106/ul Normal 4.70-6.[address] [facility] Comment on above: Performed By: #### C BC ####[facility] Qltayaqkpa0030 [place] [id number]. Garima Pulliam WBC 10.8 103/ul Normal 4.0-11.[address] [facility] Comment on above: Performed By: #### C BC ####[facility] Paiezsmyui5422 [place] [id number]. Garima Pulliam [facility]24 SARS-CoV-2 (COVID-19) RNA MARIE+probe Ql (Unsp spec) Not detected Normal NOT DETECTED [facility] Comment on above: Result Comment: When [...] for this test is supported by the [place] of [employer] and Human Service's declaration that [...] used). Performed By: #### C VDTBH ####[facility] Skmdzfenad38[address] [place], [place] [address]Dr. Garima Pulliam INFLUENZA A AND B AGon 11-20 [facility] SEE BELOW Normal [facility] Comment on above: Result Comment: Nega tive for Flu A protein angiten. Infection due to Flu A cannot be ruled out. Flu A angiten in the sample may be below the detection limit of the test. Performed By: #### I NFLUAB ####[facility] Bifritkxdg5814[address] [place], [place] [address]Dr. Garima Pulliam INFLUBNEGH SEE BELOW Normal [facility] Comment on above: Result Comment: Nega tive for Flu B protein antigen. Infection due to Flu B cannot be ruled out. Flu B antigen in the sample may be below the detection limit of the test. Performed By: #### I NFLUAB ####[facility] [id number] [place], [place] [address]Dr. Garima Pulliam INFLUENZA A AG Negative Normal NEGATIVE SEE COMMENT [facility] Comment on above: Performed By: #### I NFLUAB ####[facility] [id number] [place], [place] [address]Dr. Garima [facility] INFLUENZA B AG Negative Normal NEGATIVE SEE COMMENT [facility] Comment on above: Performed By: #### I NFLUAB ####[facility] Exlaboywdd[address] [place], [place] [address]Dr. Garima Pulliam PROF CHEM 8 (BAS METB)on Anion gap [Moles/Vol] 8.2 mmol/L Normal [facility] Comment on above: Performed By: #### B MP, HSTROPN, BNP ####[facility] Imzehghmbr[address] [place] [address]Dr. Garima Pulliam Calcium [Mass/Vol] 8.7 mg/dL Normal 8.5-10.1 [facility] Comment on above: Performed By: #### B MP, HSTROPN, BNP ####[facility] Nrfeihhmlf[address] [place] [address]Dr. Garima Pulliam Chloride [Moles/Vol] 103 mmol/L Normal 98-107 [facility] Comment on above: Performed By: #### B MP, HSTROPN, BNP ####[facility] Kyvpcpwzfh4[address] [place], [place] [address]Dr. Garima Pulliam CO2 [Moles/Vol] 29.4 mmol/L Normal 21.0-32.0 [facility] Comment on above: Performed By: #### B MP, HSTROPN, BNP ####[facility] Ymncdvokuo9[address] [place], [place] [address]Dr. Garima Pulliam Creatinine [Mass/Vol] 0.69 mg/dL Critically low 0.70-1.30 [facility] Comment on above: Performed By: #### B MP, HSTROPN, BNP ####[facility] Cuipasfegc[address] [place] [address]Dr. Garima Pulliam EGFR-AF BRAZILIAN >60 Normal >=60 [facility] Comment on above: Performed By: #### B MP, HSTROPN, BNP ####[facility] Bmcdhzkgrg[address] [place], [place] [address]Dr. Garima Pulliam EGFR-NON AF BRAZILIAN >60 Normal >=60 [facility] Comment on above: Performed By: #### B MP, HSTROPN, BNP ####[facility] Xsleetlztm4[address] [place] [address]Dr. Garima Pulliam Glucose [Mass/Vol] 209 mg/dL Critically high 74-106 [facility] Comment on above: Performed By: #### B MP, HSTROPN, BNP ####[facility] Tledysozdp[address] [place] [address]Dr. Garima Pulliam Potassium [Moles/Vol] 3.6 mmol/L Normal 3.5-5.1 [facility] Comment on above: Performed By: #### B MP, HSTROPN, BNP ####[facility] Qsqwhdfudc3[address] [place] [address]Dr. Garima Pullaim Sodium [Moles/Vol] 137 mmol/L Normal 136-[address] [facility] Comment on above: Performed By: #### B MP, HSTROPN, BNP ####[facility] Ymbeiciuin2292 [place] [address]Dr. Garima Pulliam Urea nitrogen [Mass/Vol] 11.0 mg/dL Normal 7.0-18.0 [facility] Comment on above: Performed By: #### B MP, HSTROPN, BNP ####[facility] Jvsmevjoll4442 [place] [address]Dr. Garima Pulliam Urea nitrogen/Creatinine [Mass ratio] 15.9 mg/mg Normal [facility] Comment on above: Performed By: #### B MP, HSTROPN, BNP ####[facility] Ztmphspovp5134 [place] [address]Dr. Garima Pulliam TROPONIN, HIGH SENSITIVITYon 11-20-2022 HSTROP 8.7 pg/mL Normal 4.0-76.1 [facility] Comment on above: Result Comment: CUT- OFF POINTS HAVE BEEN ESTABLISHED BASED ON THE FOURTH UNIVERSAL DEFINITIONS OF MYOCARDIALINFARCTION. THE UPPER REFERENCE LIMIT (URL) OF TROPONIN, DEFINED THE 99TH PERCENTILE OFcTnI DISTRIBUTION IN A REFERENCE POPULATION, HAS BEEN CONFIRMED THE DECISION THRESHOLDFOR [place] DIAGNOSIS. Performed By: #### B MP, HSTROPN, BNP ####[facility] Csbldblfhk3[address] [place] [address]Dr. Garima Pulliam XR CHEST 1 Von 11-20-2022 XR CHEST [address] [facility] XR CHEST 1 Von 10-02-2022 XR CHEST [address] [facility] BNPon 09-29-2022 Natriuretic peptide B (Bld) [Mass/Vol] 107.0 pg/mL Normal <=900.[address] [facility] Comment on above: Performed By: #### C MP, BNP, CMADM ####[facility] Hjkirzomkc3612 [place] [address]Dr. Garima Pulliam CARDIAC NASH ADMITon 022 CK [Catalytic activity/Vol] 190 U/L Normal 39-[address] [facility] Comment on above: Performed By: #### C MP, BNP, CMADM ####[facility] Zsrqhowmun8954 [place] [address]Dr. Garima Heraclio CK.MB [Mass/Vol] 11.11 ng/mL Critically high <=3.60 [facility] Comment on above: Performed By: #### C MP, BNP, CMADM ####[facility] Rigqworhat4813 [place] [address]Dr. Garima Pulliam HSTROP 11.8 pg/mL Normal 4.0-76.[address] [facility] Comment on above: Result Comment: CUT- OFF POINTS HAVE BEEN ESTABLISHED BASED ON THE FOURTH UNIVERSAL DEFINITIONS OF MYOCARDIALINFARCTION. THE UPPER REFERENCE LIMIT (URL) OF TROPONIN, DEFINED THE 99TH PERCENTILE OFcTnI DISTRIBUTION IN A REFERENCE POPULATION, HAS BEEN CONFIRMED THE DECISION THRESHOLDFOR [place] DIAGNOSIS. Performed By: #### C MP, BNP, CMADM ####[facility] Jxvuqfnuna2548 [place] [address]Dr. Garima Pulliam DORIS 133 ng/mL Critically high 16-[address] [facility] Comment on above: Performed By: #### C MP, BNP, CMADM ####[facility] Hwyxgacdiz4004 [place] [address]Dr. Garima Heraclio CBC AUTO DIFFon 09-29-2022 BASO # 0.0 103/ul Normal 0.0-0.[address] [facility] Comment on above: Performed By: #### C BC ####[facility] Wpbvlqzkfh5911 [place] [address]Dr. Garima Heraclio Basophils/100 WBC (Bld) 0.2 % Normal 0.2-2.[address] [facility] Comment on above: Performed By: #### C BC ####[facility] Fbmkzteopi0465 [place] [id number]. Garima Pulliam EO # 0.1 103/ul Normal 0.0-0.[address] [facility] Comment on above: Performed By: #### C BC ####[facility] Tdlbqtopgy6344 [place] [id number]. Garima Pulliam Eosinophils/100 WBC (Bld) 1.4 % Normal 0.9-7.[address] [facility] Comment on above: Performed By: #### C BC ####[facility] Ezwfioqiit65[address] [place], [place] [address]Dr. Garima Pulliam Erythrocyte distribution width (RBC) [Ratio] 13.7 % Normal 11.0-15.0 [facility] Comment on above: Performed By: #### C BC ####[facility] Llcdzxmstb8[address] [place], [place] [address]Dr. Garima Pulliam Hematocrit (Bld) [Volume fraction] 45.4 % Normal 42.0-54.0 [facility] Comment on above: Performed By: #### C BC ####[facility] Oeeqgbrjqn54[address] [place], [place] [address]Dr. Garima Pulliam Hemoglobin (Bld) [Mass/Vol] 14.8 g/dL Normal 14.0-18.0 [facility] Comment on above: Performed By: #### C BC ####[facility] Rvrykphvro[address] [place], [place] [address]Dr. Garima Pulliam IG # 0.04 10e3/ul Critically high 0.00-0.03 [facility] Comment on above: Performed By: #### C BC ####[facility] Pnkyjjebxk70[address] [place], [place] [address]Dr. Garima Pulliam IG % 0.5 % Normal 0.0-0.[address] [facility] Comment on above: Performed By: #### C BC ####[facility] Yifduozjtp6[address] [place], [place] [address]Dr. Garima Pulliam LYMPH # 1.1 103/ul Critically low 1.2-3.8 [facility] Comment on above: Performed By: #### C BC ####[facility] Lkmrwyvmue2655 [place] [id number]. Garima Pulliam Lymphocytes/100 WBC (Bld) 12.7 % Critically low 20.5-60.0 [facility] Comment on above: Performed By: #### C BC ####[facility] Xywryyqzly3265 [place] [id number]. Chapisrenu Pulliam MANUAL DIFF REQ NO Normal [facility] Comment on above: Performed By: #### C BC ####[facility] Eyjvyqvzma[address] [place], [place] [address]Dr. Garima Heraclio MCH (RBC) [Entitic mass] 30.0 pg Normal 25.9-34.[address] [facility] Comment on above: Performed By: #### C BC ####[facility] Kggnbitapo10[address] [place], [place] [address]Dr. Garima Heraclio MCHC (RBC) [Mass/Vol] 32.6 g/dL Normal 29.9-35.[address] [facility] Comment on above: Performed By: #### C BC ####[facility] Awgggmpvqy98[address] [place], [place] [address]Dr. Garima Heraclio MCV (RBC) [Entitic vol] 91.9 fL Normal 80.0-94.[address] [facility] Comment on above: Performed By: #### C BC ####[facility] Fnvfmahvzi15[address] [place], [place] [address]Dr. Garima Pulliam MONO # 0.4 103/ul Normal 0.3-0.[address] [facility] Comment on above: Performed By: #### C BC ####[facility] Jvrebptndq11[address] [place], [place] [address]Dr. Chapisrenu Pulliam Monocytes/100 WBC (Bld) 4.8 % Normal 1.7-12.[address] [facility] Comment on above: Performed By: #### C BC ####[facility] Qquhlazkck[address] [place], [place] [address]Dr. Garima Pulliam NEUT # 7.1 103/ul Critically high 1.4-6.[address] [facility] Comment on above: Performed By: #### C BC ####[facility] Mftnzdnwrk9374 [place], [place] [address]Ko. Garima Pulliam Neutrophils/100 WBC (Bld) 80.4 % Critically high 43.0-75.0 [facility] Comment on above: Performed By: #### C BC ####[facility] Lasflpazav8803 [place] [id number]. Garima Pulliam Platelet mean volume (Bld) [Entitic vol] 9.1 fL Critically low 9.5-13.5 [facility] Comment on above: Performed By: #### C BC ####[facility] Ewfbzahpvh6755 [place] [address]Dr. Garima Pulliam PLT 200 103/ul Normal 150-[address] [facility] Comment on above: Performed By: #### C BC ####[facility] Qvfmqqdpcf0501 [place] [address]Dr. Garima Pulliam RBC 4.94 106/ul Normal 4.70-6.[address] [facility] Comment on above: Performed By: #### C BC ####[facility] Ubuiqfzcnq6811 [place] [address]Dr. Garima Pulliam WBC 8.9 103/ul Normal 4.0-11.[address] [facility] Comment on above: Performed By: #### C BC ####[facility] Kekgaiptmy9278 [place] [id number]. Garima Pulliam Covid-19 PCR (CVDTB)on SARS-CoV-2 (COVID-19) RNA MARIE+probe Ql (Unsp spec) Not detected Normal NOT DETECTED [facility] Comment on above: Result Comment: When [...] for this test is supported by the [place] of [employer] and Human Service's declaration that [...] used). Performed By: #### C VDTBH ####[facility] Xwgawwjdul8205 [place] [address]Dr. Garima Pulliam LACTATE/LACTIC ACIDon 2021 Lactate [Moles/Vol] 1.7 mmol/L Normal 0.4-1.[address] [facility] Comment on above: Performed By: #### L ACT ####[facility] Fuktrpvzzm[address] [place], [place] [address]Dr. Garima Pulliam PROF 14(COMP METB)on 022 Albumin [Mass/Vol] 3.8 g/dL Normal 3.4-5.0 [facility] Comment on above: Performed By: #### C MP, BNP, CMADM ####[facility] Xsjjiqijac[address] [place], [place] [address]Dr. Garima Pulliam Albumin/Globulin [Mass ratio] 1.5 {ratio} Normal [facility] Comment on above: Performed By: #### C MP, BNP, CMADM ####[facility] Djzckvwqgm5616 [place] [address]Dr. Garima Pulliam ALP [Catalytic activity/Vol] 62 U/L Normal 46-116 [facility] Comment on above: Performed By: #### C MP, BNP, CMADM ####[facility] Hapakgijfq7878 [place] [address]Dr. Garima Pulliam ALT [Catalytic activity/Vol] 37 U/L Normal 16-63 [facility] Comment on above: Performed By: #### C MP, BNP, CMADM ####[facility] Mdaoqakaww4448 [place] [address]Dr. Garima Pulliam Anion gap [Moles/Vol] 8.0 mmol/L Normal [facility] Comment on above: Performed By: #### C MP, BNP, CMADM ####[facility] Wyhlmabkey[address] [place] [address]Dr. Garima Pulliam AST [Catalytic activity/Vol] 20 U/L Normal 15-37 [facility] Comment on above: Performed By: #### C MP, BNP, CMADM ####[facility] Jvmdmrxmka1555 [place] [address]Dr. Garima Pulliam Bilirubin [Mass/Vol] 0.6 mg/dL Normal 0.2-1.[address] [facility] Comment on above: Performed By: #### C MP, BNP, CMADM ####[facility] Eqmkbhjmwx8539 [place] [address]Dr. Garima Pulliam Calcium [Mass/Vol] 9.1 mg/dL Normal 8.5-10.1 [facility] Comment on above: Performed By: #### C MP, BNP, CMADM ####[facility] Pnqovnrtth50[address] [place], [place] [address]Dr. Garima Pulliam Chloride [Moles/Vol] 103 mmol/L Normal 98-[address] [facility] Comment on above: Performed By: #### C MP, BNP, CMADM ####[facility] Owixtomvse[address] [place], [place] [address]Dr. Garima Pulliam CO2 [Moles/Vol] 31.8 mmol/L Normal 21.0-32.0 [facility] Comment on above: Performed By: #### C MP, BNP, CMADM ####[facility] Fglesisvnx[address] [place], [place] [address]Dr. Garima Pulliam Creatinine [Mass/Vol] 0.63 mg/dL Critically low 0.70-1.[address] [facility] Comment on above: Performed By: #### C MP, BNP, CMADM ####[facility] Rlqmocxtjc14[address] [place], [place] [address]Dr. Garima Pulliam EGFR-AF BRAZILIAN >60 Normal >=60 [facility] Comment on above: Performed By: #### C MP, BNP, CMADM ####[facility] Whmwbeysbi07[address] [place], [place] [address]Dr. Garima Pulliam EGFR-NON AF BRAZILIAN >60 Normal >=[address] [facility] Comment on above: Performed By: #### C MP, BNP, CMADM ####[facility] Xecbnkkdtw8183 [place] [address]Dr. Garima Pulliam Globulin (S) [Mass/Vol] 2.6 g/dL Normal [facility] Comment on above: Performed By: #### C MP, BNP, CMADM ####[facility] Tzbrmljqnb1273 [place] [address]Dr. Garima Pulliam Glucose [Mass/Vol] 103 mg/dL Normal 74-[address] [facility] Comment on above: Performed By: #### C MP, BNP, CMADM ####[facility] Viaxhdepxq0853 [place] [address]Dr. Garima Pulliam Potassium [Moles/Vol] 3.8 mmol/L Normal 3.5-5.[address] [facility] Comment on above: Performed By: #### C MP, BNP, CMADM ####[facility] Kdepiymxiw1216 [place] [address]Dr. Garima Pulliam Protein [Mass/Vol] 6.4 g/dL Normal 6.4-8.[address] [facility] Comment on above: Performed By: #### C MP, BNP, CMADM ####[facility] Otuwborbch6318 [place] [address]Dr. Garima Pulliam Sodium [Moles/Vol] 139 mmol/L Normal 136-[address] [facility] Comment on above: Performed By: #### C MP, BNP, CMADM ####[facility] Iflfrgfiqh0043 [place] [address]Dr. Garima Pulliam Urea nitrogen [Mass/Vol] 7.0 mg/dL Normal 7.0-18.[address] [facility] Comment on above: Performed By: #### C MP, BNP, CMADM ####[facility] Ulqielzzbg4045 [place] [address]Dr. Garima Pulliam Urea nitrogen/Creatinine [Mass ratio] 11.1 mg/mg Normal [facility] Comment on above: Performed By: #### C MP, BNP, CMADM ####[facility] Yhuwcbqslh2253 [place] [address]Dr. Garima Pulliam PROTIMEon 09-29-2022 INR Coag (PPP) [Relative time] 1.14 {INR} Normal [facility] Comment on above: Performed By: #### P T, PTT ####[facility] Olpfhbivhq[address] [place], [place] [address]Dr. Garima Pulliam INR GUIDELINES SEE BELOW Normal [facility] Comment on above: Result Comment: WESLEY RED INR: 2.0 - 3.0 CONDITIONS NOT LISTED BELOW 2.5 - 3.5 FOR PROSTHETIC HEART VALVE REPLACEMENT 2.5 - 3.5 RECURRENT THROMBOSIS Performed By: #### P T, PTT ####[facility] Ibpemvgiea4[address] [place], [place] [address]Dr. Garima Pulliam PT Coag (PPP) [Time] 12.2 s Critically high 9.0-11.[address] [facility] Comment on above: Performed By: #### P T, PTT ####[facility] Jtcxswycfu364[address] [place], [place] [address]Dr. Garima Pulliam PTTon 09-29-2022 aPTT Coag (Bld) [Time] 29.3 s Normal 22.3-36.[address] [facility] Comment on above: Performed By: #### P T, PTT ####[facility] Xvplxekbib3616[address] [place], [place] [address]Dr. Garima Pulliam XR CHEST 1 Von 09-29-2022 XR CHEST [address] [facility] CBC AUTO DIFFon 09-26-2022 BASO # 0.0 103/ul Normal 0.0-0.[address] [facility] Comment on above: Performed By: #### C BC ####[facility] Rwupuwgelt[address] [place], [place] [address]Dr. Garima Pulliam Basophils/100 WBC (Bld) 0.2 % Normal 0.2-2.[address] [facility] Comment on above: Performed By: #### C BC ####[facility] Blyympompi8456[address] [place], [place] [address]Dr. Garima Pulliam EO # 0.1 103/ul Normal 0.0-0.7 [facility] Comment on above: Performed By: #### C BC ####[facility] Oslfebmutr74[address] [place], [place] [address]Dr. Garima Pulliam Eosinophils/100 WBC (Bld) 1.0 % Normal 0.9-7.0 [facility] Comment on above: Performed By: #### C BC ####[facility] Egowmzuezx4023[address] [place], [place] [address]Dr. Garima Pulliam Erythrocyte distribution width (RBC) [Ratio] 13.4 % Normal 11.0-15.0 [facility] Comment on above: Performed By: #### C BC ####[facility] Pzpaueekvo854[address] [place], [place] [address]Dr. Garima Pulliam Hematocrit (Bld) [Volume fraction] 46.3 % Normal 42.0-54.0 [facility] Comment on above: Performed By: #### C BC ####[facility] Wjjhjmirms6769[address] [place], [place] [address]Dr. Garima Pulliam Hemoglobin (Bld) [Mass/Vol] 15.3 g/dL Normal 14.0-18.[address] [facility] Comment on above: Performed By: #### C BC ####[facility] Rmgpciferp00[address] [place], [place] [address]Dr. Garima Pulliam IG # 0.05 10e3/ul Critically high 0.00-0.03 [facility] Comment on above: Performed By: #### C BC ####[facility] Oiptzjffkd2086[address] [place], [place] [address]Dr. Garima Pulliam IG % 0.4 % Normal 0.0-0.[address] [facility] Comment on above: Performed By: #### C BC ####[facility] Moetbnbnpx232[address] [place], [place] [address]Dr. Garima Pulliam LYMPH # 1.7 103/ul Normal 1.2-3.[address] [facility] Comment on above: Performed By: #### C BC ####[facility] Wjtqqpgcwd6026[address] [place], [place] [address]Dr. Garima Pulliam Lymphocytes/100 WBC (Bld) 12.7 % Critically low 20.5-60.[address] [facility] Comment on above: Performed By: #### C BC ####[facility] Ecfrzvfhsn9921 [place] [address]DrAdalberto Pulliam MANUAL DIFF REQ NO Normal [facility] Comment on above: Performed By: #### C BC ####[facility] Ylisbbqysi7913 [place] [address]Dr. Garima Pulliam MCH (RBC) [Entitic mass] 30.1 pg Normal 25.9-34.[address] [facility] Comment on above: Performed By: #### C BC ####[facility] Ehkokwracr3426[address] [place], [place] [address]Dr. Garima Pulliam MCHC (RBC) [Mass/Vol] 33.0 g/dL Normal 29.9-35.[address] [facility] Comment on above: Performed By: #### C BC ####[facility] Vonjmzcfax3813[address] [place], [place] [address]DrAdalberto Pulliam MCV (RBC) [Entitic vol] 91.1 fL Normal 80.0-94.[address] [facility] Comment on above: Performed By: #### C BC ####[facility] Jvogqjyrvh19[address] [place], [place] [address]DrAdalberto Pulliam MONO # 0.9 103/ul Critically high 0.3-0.[address] [facility] Comment on above: Performed By: #### C BC ####[facility] Nsmirjxdox4[address] [place], [place] [address]DrAdalberto Pulliam Monocytes/100 WBC (Bld) 7.0 % Normal 1.7-12.[address] [facility] Comment on above: Performed By: #### C BC ####[facility] Kugvavgxnr6401[address] [place], [place] [address]DrAdalberto Pulliam NEUT # 10.4 103/ul Critically high 1.4-6.5 [facility] Comment on above: Performed By: #### C BC ####[facility] Gqsvxiutge2712[address] [place], [place] [address]DrAdalberto Pulliam Neutrophils/100 WBC (Bld) 78.7 % Critically high 43.0-75.0 [facility] Comment on above: Performed By: #### C BC ####[facility] Pnbygccjaz4327 [place] [address]Dr. Garima Pulliam Platelet mean volume (Bld) [Entitic vol] 8.9 fL Critically low 9.5-13.[address] [facility] Comment on above: Performed By: #### C BC ####[facility] Fejpqtpflj2180 [place] [address]Dr. Garima Pulliam PLT 195 103/ul Normal 150-[address] [facility] Comment on above: Performed By: #### C BC ####[facility] Kgelgrktoh06[address] [place], [place] [address]Dr. Garima Pulliam RBC 5.08 106/ul Normal 4.70-6.[address] [facility] Comment on above: Performed By: #### C BC ####[facility] Vuwakzpsib9[address] [place], [place] [address]Dr. Garima Pulliam WBC 13.2 103/ul Critically high 4.0-11.0 [facility] Comment on above: Performed By: #### C BC ####[facility] Preufgtpfw56[address] [place], [place] [address]Dr. Garima Pulliam PROF 14(COMP METB)on 022 Albumin [Mass/Vol] 3.5 g/dL Normal 3.4-5.0 [facility] Comment on above: Performed By: #### C DAVID HSTROPN ####[facility] Huqluznxvw5999 [place] [address]Dr. Garima Pulliam Albumin/Globulin [Mass ratio] 1.2 {ratio} Normal [facility] Comment on above: Performed By: #### C RAFAT HERNANDEZTROPN ####[facility] Bvxqmvmbfl4761 [place] [address]Dr. Garima Pulliam ALP [Catalytic activity/Vol] 71 U/L Normal 46-[address] [facility] Comment on above: Performed By: #### C DAVID HSTROPN ####[facility] Cnnirtahma5386 [place] [address]Dr. Garima Pulliam ALT [Catalytic activity/Vol] 37 U/L Normal 16-[address] [facility] Comment on above: Performed By: #### C DAVID, HSTROPN ####[facility] Dgvydeqhfw4347 [place] [address]Dr. Garima Pulliam Anion gap [Moles/Vol] 4.8 mmol/L Normal [facility] Comment on above: Performed By: #### C DAVID, HSTROPN ####[facility] Hukvhngdhh40[address] [place], [place] [address]Dr. Garima Pulliam AST [Catalytic activity/Vol] 21 U/L Normal 15-[address] [facility] Comment on above: Performed By: #### C DAVID, HSTROPN ####[facility] Iqtglgwoyr8[address] [place], [place] [address]Dr. Garima Pulliam Bilirubin [Mass/Vol] 0.3 mg/dL Normal 0.2-1.[address] [facility] Comment on above: Performed By: #### C DAVID, HSTROPN ####[facility] Lrjqkdtrza6447 [place] [address]Dr. Garima Pulliam Calcium [Mass/Vol] 8.9 mg/dL Normal 8.5-10.1 [facility] Comment on above: Performed By: #### C DAVID, HSTROPN ####[facility] Ruxxkjhsvl1941 [place] [address]Dr. Garima Pulliam Chloride [Moles/Vol] 106 mmol/L Normal 98-[address] [facility] Comment on above: Performed By: #### C DAVID, HSTROPN ####[facility] Kizgcspatd7858 [place] [address]Dr. Garima Pulliam CO2 [Moles/Vol] 29.8 mmol/L Normal 21.0-32.0 [facility] Comment on above: Performed By: #### C DAVID, HSTROPN ####[facility] Wbhutxjcfo7068 [place] [address]Dr. Garima Pulliam Creatinine [Mass/Vol] 0.68 mg/dL Critically low 0.70-1.30 [facility] Comment on above: Performed By: #### C MP, HSTROPN ####[facility] Helzubuqwq4355 [place] [address]Dr. Garima Pulliam EGFR-AF BRAZILIAN >60 Normal >=60 [facility] Comment on above: Performed By: #### C MP, HSTROPN ####[facility] Irwjmwhesw2732 [place] [address]Dr. Chapislan Pulliam EGFR-NON AF BRAZILIAN >60 Normal >=60 [facility] Comment on above: Performed By: #### C MP, HSTROPN ####[facility] Hxyvtfafsx6589 [place] [address]Dr. Garima Pulliam Globulin (S) [Mass/Vol] 2.8 g/dL Normal [facility] Comment on above: Performed By: #### C MP, HSTROPN ####[facility] Ydbsgpldnd0508 [place] [address]Dr. Garima Pulliam Glucose [Mass/Vol] 133 mg/dL Critically high 74-106 [facility] Comment on above: Performed By: #### C MP, HSTROPN ####[facility] Ldbvfdktyd5704 [place] [address]Dr. Chapisrenu Pulliam Potassium [Moles/Vol] 3.6 mmol/L Normal 3.5-5.1 [facility] Comment on above: Performed By: #### C MP, HSTROPN ####[facility] Ehhpbbthow9778 [place] [address]Dr. Chapisrenu Pulliam Protein [Mass/Vol] 6.3 g/dL Critically low 6.4-8.2 [facility] Comment on above: Performed By: #### C MP, HSTROPN ####[facility] [id number] [place], [place] [address]Dr. Chapisrenu Pulliam Sodium [Moles/Vol] 137 mmol/L Normal 136-145 [facility] Comment on above: Performed By: #### C MP, HSTROPN ####[facility] [id number] [place], [place] [address]Dr. Garima Pulliam Urea nitrogen [Mass/Vol] 15.0 mg/dL Normal 7.0-18.[address] [facility] Comment on above: Performed By: #### C DAVID HSTROPN ####[facility] [address]qwcogfpgq[address] [place] [address]Dr. Chapisrenu Pulliam Urea nitrogen/Creatinine [Mass ratio] 22.1 mg/mg Normal [facility] Comment on above: Performed By: #### C DAVID HSTROPN ####[facility] Kbjozbrdad[address] [place] [address]Dr. Garima Heraclio TROPONIN, HIGH SENSITIVITYon 09-26-2022 HSTROP 12.8 pg/mL Normal 4.0-76.[address] [facility] Comment on above: Result Comment: CUT- OFF POINTS HAVE BEEN ESTABLISHED BASED ON THE FOURTH UNIVERSAL DEFINITIONS OF MYOCARDIALINFARCTION. THE UPPER REFERENCE LIMIT (URL) OF TROPONIN, DEFINED THE 99TH PERCENTILE OFcTnI DISTRIBUTION IN A REFERENCE POPULATION, HAS BEEN CONFIRMED THE DECISION THRESHOLDFOR [place] DIAGNOSIS. Performed By: #### C DAVID HSTROPN ####[facility] Ugjoebfspr[address] [place] [address]Dr. Chapisrenu Pulliam XR CHEST 1 Von 09-26-2022 XR CHEST [address] [facility] XR CHEST 1 Von 09-16-2022 XR CHEST [address] [facility] CBC AUTO DIFFon 09-15-2022 BASO # 0.0 103/ul Normal 0.0-0.[address] [facility] Comment on above: Performed By: #### C BC ####[facility] Okbabztvix[address] [place] [address]Dr. Garima Heraclio Basophils/100 WBC (Bld) 0.1 % Critically low 0.2-2.[address] [facility] Comment on above: Performed By: #### C BC ####[facility] Dtsojyivqx86[address] [place] [address]Dr. Garima Pulliam EO # 0.0 103/ul Normal 0.0-0.[address] [facility] Comment on above: Performed By: #### C BC ####[facility] Zxlvyfzybn2625 [place] [address]Dr. Garima Pulliam Eosinophils/100 WBC (Bld) 0.1 % Critically low 0.9-7.[address] [facility] Comment on above: Performed By: #### C BC ####[facility] Xdsnaxbcst5[address] [place] [address]Dr. Garima Pulliam Erythrocyte distribution width (RBC) [Ratio] 14.1 % Normal 11.0-15.[address] [facility] Comment on above: Performed By: #### C BC ####[facility] Jizrcikejo[address] [place], [place] [address]Dr. Garima Pulliam Hematocrit (Bld) [Volume fraction] 46.1 % Normal 42.0-54.[address] [facility] Comment on above: Performed By: #### C BC ####[facility] Jfmftfxpwm[address] [place], [place] [address]Dr. Garima Pulliam Hemoglobin (Bld) [Mass/Vol] 15.0 g/dL Normal 14.0-18.[address] [facility] Comment on above: Performed By: #### C BC ####[facility] Bjnfpzzmad[address] [place], [place] [address]Dr. Garima Pulliam IG # 0.03 10e3/ul Normal 0.00-0.[address] [facility] Comment on above: Performed By: #### C BC ####[facility] Ektnvptzxu86[address] [place], [place] [address]Dr. Garima Pulliam IG % 0.3 % Normal 0.0-0.[address] [facility] Comment on above: Performed By: #### C BC ####[facility] Nxwzwzniku06[address] [place], [place] [address]Dr. Garima Pulliam LYMPH # 0.6 103/ul Critically low 1.2-3.8 [facility] Comment on above: Performed By: #### C BC ####[facility] Dpchwmomhy[address] [place], [place] [address]Dr. Garima Pulliam Lymphocytes/100 WBC (Bld) 5.8 % Critically low 20.5-60.[address] [facility] Comment on above: Performed By: #### C BC ####[facility] Spydvskyqf9[address] [place] [id number]. Garima Pulliam MANUAL DIFF REQ NO Normal [facility] Comment on above: Performed By: #### C BC ####[facility] Rijhgdiips1213 [place] [id number]. Garima Pulliam MCH (RBC) [Entitic mass] 30.2 pg Normal 25.9-34.[address] [facility] Comment on above: Performed By: #### C BC ####[facility] Wzhlfnytvs37[address] [place] [address]Dr. Garima Pulliam MCHC (RBC) [Mass/Vol] 32.5 g/dL Normal 29.9-35.[address] [facility] Comment on above: Performed By: #### C BC ####[facility] Ngbsxcmmrf3560 [place] [address]Dr. Garima Pulliam MCV (RBC) [Entitic vol] 92.8 fL Normal 80.0-94.[address] [facility] Comment on above: Performed By: #### C BC ####[facility] Kivuncuwyi7947 [place] [address]Dr. Garima Heraclio MONO # 0.3 103/ul Normal 0.3-0.[address] [facility] Comment on above: Performed By: #### C BC ####[facility] Wgqjlrawic0630 [place] [id number]. Garima Heraclio Monocytes/100 WBC (Bld) 3.2 % Normal 1.7-12.[address] [facility] Comment on above: Performed By: #### C BC ####[facility] Uifidcfxnd3202 [place] [id number]. Garima Pulliam NEUT # 9.8 103/ul Critically high 1.4-6.[address] [facility] Comment on above: Performed By: #### C BC ####[facility] Sicsibmjyy8473 [place] [address]Dr. Garima Pulliam Neutrophils/100 WBC (Bld) 90.5 % Critically high 43.0-75.[address] [facility] Comment on above: Performed By: #### C BC ####[facility] Wwempuykeh1638 [place] [id number]. Garima Pulliam Platelet mean volume (Bld) [Entitic vol] 9.4 fL Critically low 9.5-13.[address] [facility] Comment on above: Performed By: #### C BC ####[facility] Botomkyaxp8578 [place] [id number]. Garima Pulliam PLT 208 103/ul Normal 150-[address] [facility] Comment on above: Performed By: #### C BC ####[facility] Xbixoyzhrv2417 [place] [address]Dr. Garima Pulliam RBC 4.97 106/ul Normal 4.70-6.[address] [facility] Comment on above: Performed By: #### C BC ####[facility] Uuughcypxu0759 [place] [address]Dr. Garima Pulliam WBC 10.8 103/ul Normal 4.0-11.[address] [facility] Comment on above: Performed By: #### C BC ####[facility] Dqhfrjknlw3524 [place] [address]Dr. Garima Pulliam PROF 14(COMP METB)on 022 Albumin [Mass/Vol] 4.0 g/dL Normal 3.4-5.0 [facility] Comment on above: Performed By: #### C MP ####[facility] Tkxxuasafo3053 [place] [address]Dr. Garima Pulliam Albumin/Globulin [Mass ratio] 1.5 {ratio} Normal [facility] Comment on above: Performed By: #### C MP ####[facility] Drmnpoemdf2276 [place] [address]Dr. Garima Pulliam ALP [Catalytic activity/Vol] 73 U/L Normal 46-[address] [facility] Comment on above: Performed By: #### C MP ####[facility] Gxfgxqdzhr8661 [place] [address]Dr. Garima Pulliam ALT [Catalytic activity/Vol] 42 U/L Normal 16-[address] [facility] Comment on above: Performed By: #### C MP ####[facility] Jlbahdmkky3683 [place] [address]Dr. Garima Pulliam Anion gap [Moles/Vol] 9.1 mmol/L Normal [facility] Comment on above: Performed By: #### C MP ####[facility] [address]cdzftjgdp[address] [place], [place] [address]Dr. Garima Pulliam AST [Catalytic activity/Vol] 28 U/L Normal 15-[address] [facility] Comment on above: Performed By: #### C MP ####[facility] Kdammabosd5[address] [place], [place] [address]Dr. Garima Pulliam Bilirubin [Mass/Vol] 0.6 mg/dL Normal 0.2-1.[address] [facility] Comment on above: Performed By: #### C MP ####[facility] Iqkwnxzadl[address] [place], [place] [address]Dr. Garima Pulliam Calcium [Mass/Vol] 8.6 mg/dL Normal 8.5-10.[address] [facility] Comment on above: Performed By: #### C MP ####[facility] Wfxqjmmang6720[address] [place], [place] [address]Dr. Garima Pulliam Chloride [Moles/Vol] 105 mmol/L Normal 98-[address] [facility] Comment on above: Performed By: #### C MP ####[facility] Hsgrfmmtph77[address] [place], [place] [address]Dr. Garima Pulliam CO2 [Moles/Vol] 28.5 mmol/L Normal 21.0-32.0 The [facility] Comment on above: Performed By: #### C MP ####[facility] Kazruwyqpr69[address] [place], [place] [address]Dr. Garima Heraclio Creatinine [Mass/Vol] 0.78 mg/dL Normal 0.70-1.[address] [facility] Comment on above: Performed By: #### C MP ####[facility] Arlepqpkby703[address] [place], [place] [address]Dr. Chapisrenu Heraclio EGFR-AF BRAZILIAN >60 Normal >=60 [facility] Comment on above: Performed By: #### C MP ####[facility] Iyrmgxprmm4[address] [place], [place] [address]Dr. Garima Pulliam EGFR-NON AF BRAZILIAN >60 Normal >=60 [facility] Comment on above: Performed By: #### C MP ####[facility] Xuepqmiilb9201 [place] [address]Dr. Garima Pulliam Globulin (S) [Mass/Vol] 2.7 g/dL Normal [facility] Comment on above: Performed By: #### C MP ####[facility] Gmzjkozoih4136 [place] [address]Dr. Garima Pulliam Glucose [Mass/Vol] 220 mg/dL Critically high 74-106 T [facility] Comment on above: Performed By: #### C MP ####[facility] Dovkvrljnm3531 [place] [address]Dr. Garima Pulliam Potassium [Moles/Vol] 3.6 mmol/L Normal 3.5-5.1 [facility] Comment on above: Performed By: #### C MP ####[facility] Ttwiuepqkq39[address] [place], [place] [address]Dr. Garima Pulliam Protein [Mass/Vol] 6.7 g/dL Normal 6.4-8.2 [facility] Comment on above: Performed By: #### C MP ####[facility] Riwexectaq[address] [place], [place] [address]Dr. Garima Pulliam Sodium [Moles/Vol] 139 mmol/L Normal 136-145 [facility] Comment on above: Performed By: #### C MP ####[facility] Rjragkcwdu27[address] [place], [place] [address]Dr. Garima Pulliam Urea nitrogen [Mass/Vol] 11.0 mg/dL Normal 7.0-18.0 [facility] Comment on above: Performed By: #### C MP ####[facility] Dpnoevjhoh54[address] [place], [place] [address]Dr. Garima Pulliam Urea nitrogen/Creatinine [Mass ratio] 14.1 mg/mg Normal [facility] Comment on above: Performed By: #### C MP ####[facility] Miqcwxawnw38[address] [place], [place] [address]Dr. Garima Pulliam CARDIAC NASH 3-6on 2 CK [Catalytic activity/Vol] 240 U/L Normal 39-308 [facility] Comment on above: Performed By: #### C MREP ####[facility] Vzwuuxknfd0482 [place] [address]Dr. Garima Pulliam CK.MB [Mass/Vol] 10.38 ng/mL Critically high <=3.60 [facility] Comment on above: Performed By: #### C MREP ####[facility] Osvbewrbzv3075 [place] [address]Dr. Garima Pullaim HSTROP 18.5 pg/mL Normal 4.0-76.1 [facility] Comment on above: Result Comment: CUT- OFF POINTS HAVE BEEN ESTABLISHED BASED ON THE FOURTH UNIVERSAL DEFINITIONS OF MYOCARDIALINFARCTION. THE UPPER REFERENCE LIMIT (URL) OF TROPONIN, DEFINED THE 99TH PERCENTILE OFcTnI DISTRIBUTION IN A REFERENCE POPULATION, HAS BEEN CONFIRMED THE DECISION THRESHOLDFOR [place] DIAGNOSIS. Performed By: #### C MREP ####[facility] Vezooelluq5639 [place] [address]Dr. Garima Pulliam CK [Catalytic activity/Vol] 257 U/L Normal 39-308 [facility] Comment on above: Performed By: #### C MREP ####[facility] Rdqwsrfndx059[address] [place], [place] [address]Dr. Garima Pulliam CK.MB [Mass/Vol] 9.89 ng/mL Critically high <=3.60 [facility] Comment on above: Performed By: #### C MREP ####[facility] Wktydzwowg46[address] [place], [place] [address]Dr. Garima Pulliam HSTROP 16.9 pg/mL Normal 4.0-76.1 [facility] Comment on above: Result Comment: CUT- OFF POINTS HAVE BEEN ESTABLISHED BASED ON THE FOURTH UNIVERSAL DEFINITIONS OF MYOCARDIALINFARCTION. THE UPPER REFERENCE LIMIT (URL) OF TROPONIN, DEFINED THE 99TH PERCENTILE OFcTnI DISTRIBUTION IN A REFERENCE POPULATION, HAS BEEN CONFIRMED THE DECISION THRESHOLDFOR [place] DIAGNOSIS. Performed By: #### C MREP ####[facility] Hokseddkug7832 [place] [address]Dr. Garima Heraclio CBC AUTO DIFFon 10-22-2022 BASO # 0.0 103/ul Normal 0.0-0.[address] [facility] Comment on above: Performed By: #### C BC ####[facility] Zrasaawohw9690 [place] [id number]. Garima Pulliam Basophils/100 WBC (Bld) 0.1 % Critically low 0.2-2.[address] [facility] Comment on above: Performed By: #### C BC ####[facility] Irutqhwwab9409 [place] [address]Dr. Garima Pulliam EO # 0.0 103/ul Normal 0.0-0.[address] [facility] Comment on above: Performed By: #### C BC ####[facility] Ozmrmpddcb27[address] [place], [place] [address]Dr. Chapisrenu Heraclio Eosinophils/100 WBC (Bld) 0.0 % Critically low 0.9-7.[address] [facility] Comment on above: Performed By: #### C BC ####[facility] Yepvjovyqz5[address] [place], [place] [address]Dr. Garima Pulliam Erythrocyte distribution width (RBC) [Ratio] 13.6 % Normal 11.0-15.[address] [facility] Comment on above: Performed By: #### C BC ####[facility] Smvskddmaf34[address] [place], [place] [address]Dr. Garima Pulliam Hematocrit (Bld) [Volume fraction] 48.2 % Normal 42.0-54.[address] [facility] Comment on above: Performed By: #### C BC ####[facility] Uowkmezzzf9438[address] [place], [place] [address]Dr. Garima Pulliam Hemoglobin (Bld) [Mass/Vol] 16.0 g/dL Normal 14.0-18.[address] [facility] Comment on above: Performed By: #### C BC ####[facility] Vagugoummp396[address] [place], [place] [address]Dr. Chapisrenu Heraclio IG # 0.02 10e3/ul Normal 0.00-0.[address] [facility] Comment on above: Performed By: #### C BC ####[facility] Dxrusodiyr6233 [place] [id number]. Garima Pulliam IG % 0.3 % Normal 0.0-0.[address] [facility] Comment on above: Performed By: #### C BC ####[facility] Avrhmhmbqz6101 [place] [address]Dr. Garima Heraclio LYMPH # 0.5 103/ul Critically low 1.2-3.8 The [facility] Comment on above: Performed By: #### C BC ####[facility] Nsiqvcpmcp0016 [place] [address]Dr. Garima Heraclio Lymphocytes/100 WBC (Bld) 7.7 % Critically low 20.5-60.[address] [facility] Comment on above: Performed By: #### C BC ####[facility] Dzzaanxdjt38[address] [place], [place] [address]Dr. Chapisrenu Pulliam MANUAL DIFF REQ NO Normal [facility] Comment on above: Performed By: #### C BC ####[facility] Kdgzfivlsm[address] [place], [place] [address]Dr. Garima Heraclio MCH (RBC) [Entitic mass] 30.6 pg Normal 25.9-34.[address] [facility] Comment on above: Performed By: #### C BC ####[facility] Vksoeyyorg8367[address] [place], [place] [address]Dr. Garima Pulliam MCHC (RBC) [Mass/Vol] 33.2 g/dL Normal 29.9-35.[address] [facility] Comment on above: Performed By: #### C BC ####[facility] Zkusnmvowt317[address] [place], [place] [address]Dr. Garima Heraclio MCV (RBC) [Entitic vol] 92.2 fL Normal 80.0-94.[address] [facility] Comment on above: Performed By: #### C BC ####[facility] Syvttqgyxj40[address] [place], [place] [address]Dr. Garima Pulliam MONO # 0.0 103/ul Critically low 0.3-0.8 [facility] Comment on above: Performed By: #### C BC ####[facility] Iixrwfcwxm6740 [place] [id number]. Garima Pulliam Monocytes/100 WBC (Bld) 0.4 % Critically low 1.7-12.[address] [facility] Comment on above: Performed By: #### C BC ####[facility] Ozsimtpmjn7304 [place] [id number]. Garima Pulliam NEUT # 6.2 103/ul Normal 1.4-6.[address] [facility] Comment on above: Performed By: #### C BC ####[facility] Soslxwjxwt3799 [place] [address]Dr. Garima Pulliam Neutrophils/100 WBC (Bld) 91.5 % Critically high 43.0-75.[address] [facility] Comment on above: Performed By: #### C BC ####[facility] Zzzigrzptu6386 [place] [address]Dr. Garima Pulliam Platelet mean volume (Bld) [Entitic vol] 8.7 fL Critically low 9.5-13.[address] [facility] Comment on above: Performed By: #### C BC ####[facility] Rljstenbfh7177 [place] [address]Dr. Garima Pulliam PLT 179 103/ul Normal 150-[address] [facility] Comment on above: Performed By: #### C BC ####[facility] Kwuyqirjlt7908 [place] [id number]. Garima Pulliam RBC 5.23 106/ul Normal 4.70-6.[address] [facility] Comment on above: Performed By: #### C BC ####[facility] Ktrpbmujtz5172 [place] [address]Dr. Garima Pulliam WBC 6.7 103/ul Normal 4.0-11.[address] [facility] Comment on above: Performed By: #### C BC ####[facility] Cohgvjzjod6736 [place] [address]Dr. Garima Pulliam PROF CHEM 8 (BAS METB)on Anion gap [Moles/Vol] 12.1 mmol/L Normal [facility] Comment on above: Performed By: #### B MP ####[facility] Pnjjhmfdqy3352 [place] [phone]. Garima Pulliam Calcium [Mass/Vol] 8.7 mg/dL Normal 8.5-10.[address] [facility] Comment on above: Performed By: #### B MP ####[facility] Plafwpxbph0759 [place] [phone]. Garima Pulliam Chloride [Moles/Vol] 105 mmol/L Normal 98-107 [facility] Comment on above: Performed By: #### B MP ####[facility] Wwqiavdfly7246 [place] [phone]. Garima Pulliam CO2 [Moles/Vol] 25.5 mmol/L Normal 21.0-32.0 [facility] Comment on above: Performed By: #### B MP ####[facility] Dqetxhihug8061 [place] [address]Dr. Garima Pulliam Creatinine [Mass/Vol] 0.63 mg/dL Critically low 0.70-1.30 [facility] Comment on above: Performed By: #### B MP ####[facility] Qgtmuotyoo8924 [place] [address]Dr. Garima Pulliam EGFR-AF BRAZILIAN >60 Normal >=60 [facility] Comment on above: Performed By: #### B MP ####[facility] Xlhjgptirp6305 [place] [address]Dr. Garima Pulliam EGFR-NON AF BRAZILIAN >60 Normal >=60 [facility] Comment on above: Performed By: #### B MP ####[facility] Xidzdrgusu1962 [place] [address]Dr. Garima Pulliam Glucose [Mass/Vol] 162 mg/dL Critically high 74-106 [facility] Comment on above: Performed By: #### B MP ####[facility] Ybjgvpybyn[address] [place], [place] [address]Dr. Garima Pulliam Potassium [Moles/Vol] 3.6 mmol/L Normal 3.5-5.[address] [facility] Comment on above: Performed By: #### B MP ####[facility] Qdxgskdlyb40[address] [place], [place] [address]Dr. Garima Pulliam Sodium [Moles/Vol] 139 mmol/L Normal 136-145 [facility] Comment on above: Performed By: #### B DAVID ####[facility] Ohsveodyuw7018 [place] [address]Dr. Garima Pulliam Urea nitrogen [Mass/Vol] 9.0 mg/dL Normal 7.0-18.0 [facility] Comment on above: Performed By: #### B DAVID ####[facility] Mqlttllmrf5816 [place] [address]Dr. Garima Pulliam Urea nitrogen/Creatinine [Mass ratio] 14.3 mg/mg Normal [facility] Comment on above: Performed By: #### B DAVID ####[facility] Prcpjthvsp0452 [place] [address]Dr. Chapisrenu Pulliam CARDIAC NASH ADMITon 09-12- 022 CK [Catalytic activity/Vol] 304 U/L Normal 39-308 [facility] Comment on above: Performed By: #### B NANCY HERNANDEZ ####[facility] Ngjjjuvdvn0720 [place] [address]Dr. Garima Pulliam CK.MB [Mass/Vol] 11.81 ng/mL Critically high <=3.60 [facility] Comment on above: Performed By: #### B NANCY HERNANDEZ ####[facility] Fafybeewmw[address] [place] [address]Dr. Garima Heraclio HSTROP 13.3 pg/mL Normal 4.0-76.1 [facility] Comment on above: Result Comment: CUT- OFF POINTS HAVE BEEN ESTABLISHED BASED ON THE FOURTH UNIVERSAL DEFINITIONS OF MYOCARDIALINFARCTION. THE UPPER REFERENCE LIMIT (URL) OF TROPONIN, DEFINED THE 99TH PERCENTILE OFcTnI DISTRIBUTION IN A REFERENCE POPULATION, HAS BEEN CONFIRMED THE DECISION THRESHOLDFOR [place] DIAGNOSIS. Performed By: #### B NANCY HERNANDEZ ####[facility] Aontgdxcrx2714 [place] [address]Dr. Garima Pulliam DORIS 133 ng/mL Critically high 16-96 [facility] Comment on above: Performed By: #### B NANCY HERNANDEZ ####[facility] Nrkkpnzatj7934 [place] [address]Dr. Garima Pulliam CBC AUTO DIFFon 09-12-2022 BASO # 0.0 103/ul Normal 0.0-0.[address] [facility] Comment on above: Performed By: #### C BC ####[facility] Zrnob[address]ouvd[address] [place], [place] [address]Dr. Garima Heraclio Basophils/100 WBC (Bld) 0.2 % Normal 0.2-2.[address] [facility] Comment on above: Performed By: #### C BC ####[facility] Urdmelnbgb75[address] [place], [place] [address]Dr. Garima Heraclio EO # 0.2 103/ul Normal 0.0-0.[address] [facility] Comment on above: Performed By: #### C BC ####[facility] Dkoqvsuyyd60[address] [place], [place] [address]Dr. Chapisrenu Pulliam Eosinophils/100 WBC (Bld) 1.3 % Normal 0.9-7.[address] [facility] Comment on above: Performed By: #### C BC ####[facility] Cxfeinhebk1617[address] [place], [place] [address]Dr. Garima Pulliam Erythrocyte distribution width (RBC) [Ratio] 13.7 % Normal 11.0-15.0 [facility] Comment on above: Performed By: #### C BC ####[facility] Rsegvquego[address] [place], [place] [address]Dr. Garima Pulliam Hematocrit (Bld) [Volume fraction] 46.4 % Normal 42.0-54.[address] [facility] Comment on above: Performed By: #### C BC ####[facility] Evznrozder822[address] [place], [place] [address]Dr. Garima Pulliam Hemoglobin (Bld) [Mass/Vol] 15.7 g/dL Normal 14.0-18.[address] [facility] Comment on above: Performed By: #### C BC ####[facility] Pxxrjwzjjc24[address] [place], [place] [address]Dr. Garima Pulliam IG # 0.04 10e3/ul Critically high 0.00-0.03 [facility] Comment on above: Performed By: #### C BC ####[facility] Gxbgxwfvqc1054 [place] [id number]. Garima Pulliam IG % 0.3 % Normal 0.0-0.5 [facility] Comment on above: Performed By: #### C BC ####[facility] Mdewonjqjq6609 [place] [address]Dr. Garima Pulliam LYMPH # 1.7 103/ul Normal 1.2-3.[address] [facility] Comment on above: Performed By: #### C BC ####[facility] Olninnoiic0750 [place] [phone]. Garima Pulliam Lymphocytes/100 WBC (Bld) 11.5 % Critically low 20.5-60.0 [facility] Comment on above: Performed By: #### C BC ####[facility] Byxpinozup3055 [place] [id number]. Garima Pulliam MANUAL DIFF REQ NO Normal [facility] Comment on above: Performed By: #### C BC ####[facility] Qrwfcwiyzp1877 [place] [phone]. Garima Pulliam MCH (RBC) [Entitic mass] 31.0 pg Normal 25.9-34.0 [facility] Comment on above: Performed By: #### C BC ####[facility] Beebiprmtz8940 [place] [phone]. Garima Pulliam MCHC (RBC) [Mass/Vol] 33.8 g/dL Normal 29.9-35.[address] [facility] Comment on above: Performed By: #### C BC ####[facility] Ntfpjgmllx3894 [place] [phone]. Garima Pulliam MCV (RBC) [Entitic vol] 91.7 fL Normal 80.0-94.[address] [facility] Comment on above: Performed By: #### C BC ####[facility] Ybfegqxyst1818 [place] [id number]. Garima Heraclio MONO # 0.8 103/ul Normal 0.3-0.8 [facility] Comment on above: Performed By: #### C BC ####[facility] Tkrmtovkar7966 [place] [id number]. Garima Pulliam Monocytes/100 WBC (Bld) 5.2 % Normal 1.7-12.[address] [facility] Comment on above: Performed By: #### C BC ####[facility] Wqwdnnqrvg8637 [place] [phone]. Garima Pulliam NEUT # 11.7 103/ul Critically high 1.4-6.5 [facility] Comment on above: Performed By: #### C BC ####[facility] Stcjgjozzl3050 [place] [phone]. Garima Pulliam Neutrophils/100 WBC (Bld) 81.5 % Critically high 43.0-75.[address] [facility] Comment on above: Performed By: #### C BC ####[facility] Cdgldnzzxy8119 [place] [address]Dr. Garima Pulliam Platelet mean volume (Bld) [Entitic vol] 8.6 fL Critically low 9.5-13.[address] [facility] Comment on above: Performed By: #### C BC ####[facility] Rykcqmptbb1482 [place] [id number]. Garima Pulliam PLT 191 103/ul Normal 150-[address] [facility] Comment on above: Performed By: #### C BC ####[facility] Omwtzfvbmg[address] [place], [place] [address]Dr. Garima Pulliam RBC 5.06 106/ul Normal 4.70-6.[address] [facility] Comment on above: Performed By: #### C BC ####[facility] [id number] [place], [place] [id number]. Garima Pulliam WBC 14.4 103/ul Critically high 4.0-11.0 [facility] Comment on above: Performed By: #### C BC ####[facility] [address] [place], [place] [address]Dr. Garima Pulliam [facility]on [facility]24 SARS-CoV-2 (COVID-19) RNA MARIE+probe Ql (Unsp spec) Not detected Normal NOT DETECTED [facility] Comment on above: Result Comment: When [...] for this test is supported by the [place] of Health and Human Service's declaration that [...] used). Performed By: #### C VDTBH ####[facility] [address] [place], [place] [address]Dr. Garima Pulliam LACTATE/LACTIC ACIDon 2021 Lactate [Moles/Vol] 1.0 mmol/L Normal 0.4-1.[address] [facility] Comment on above: Performed By: #### L ACT ####[facility] [address] [place], [place] [address]Dr. Garima Pulliam PROF CHEM 8 (BAS METB)on Anion gap [Moles/Vol] 11.6 mmol/L Normal [facility] Comment on above: Performed By: #### B NANCY HERNANDEZ ####[facility] [address] [place] [address]Dr. Garima Pulliam Calcium [Mass/Vol] 9.2 mg/dL Normal 8.5-10.1 [facility] Comment on above: Performed By: #### B NANCY HERNANDEZ ####[facility] [address] [place] [address]Dr. Garima Pulliam Chloride [Moles/Vol] 105 mmol/L Normal 98-107 [facility] Comment on above: Performed By: #### B MP, CMADM ####[facility] [address] [place] [id number]. Garima Pulliam CO2 [Moles/Vol] 25.9 mmol/L Normal 21.0-32.0 [facility] Comment on above: Performed By: #### B DAVID, CMADM ####[facility] [address] [place] [address]Dr. Garima Pulliam Creatinine [Mass/Vol] 0.72 mg/dL Normal 0.70-1.30 [facility] Comment on above: Performed By: #### B DAVID, CMADM ####[facility] [address] [place] [id number]. Garima Pulliam EGFR-AF BRAZILIAN >60 Normal >=60 [facility] Comment on above: Performed By: #### B DAVID, CMADM ####[facility] [address] [place] [address]Dr. Chapisrenu Pulliam EGFR-NON AF BRAZILIAN >60 Normal >=60 [facility] Comment on above: Performed By: #### B DAVID, CMAANA ROSA ####[facility] [address] [place] [address]Dr. Garima Pulliam Glucose [Mass/Vol] 111 mg/dL Critically high 74-106 [facility] Comment on above: Performed By: #### B DAVID, CMADM ####[facility] [address] [place] [address]Dr. Chapisrenu Pulliam Potassium [Moles/Vol] 3.5 mmol/L Normal 3.5-5.1 [facility] Comment on above: Performed By: #### B DAVID, CMADM ####[facility] [address] [place] [address]Dr. Chapisrenu Pulliam Sodium [Moles/Vol] 139 mmol/L Normal 136-145 [facility] Comment on above: Performed By: #### B DAVID, CMADM ####[facility] [address] [place] [address]Dr. Garima Pulliam Urea nitrogen [Mass/Vol] 7.0 mg/dL Normal 7.0-18.0 [facility] Comment on above: Performed By: #### B DAVID, CMADM ####[facility] [address] [place], [place] [address]Kp. Garima Pulliam Urea nitrogen/Creatinine [Mass ratio] 9.7 mg/mg Normal [facility] Comment on above: Performed By: #### B MP, CMADM ####[facility] [address] [place], [place] [address]Qn. Garima Pulliam XR CHEST 1 Von 09-12-2022 XR CHEST [address] [facility] Encounters Encounter Date Encounter Type Care [...] Facility:H1 Payers Date Payer Category Payer Unknown [id number] 1960 Medicaid [id number] 1960 Unknown [id number] 1959 Unknown [id number] 1955 Unknown [id number] 2.16.84 0.1.735536.3.579.2.593 1954 Unknown [id number] 2.16.84 0.1.272126.3.579.2.593 1954 Unknown [id number] 2.16.84 0.1.840732.3.579.2.593 1954 Unknown [id number] 2.16.84 0.1.001517.3.579.2.593 1954 Unknown [id number] 2.16.84 0.1.731925.3.579.2.593 1954 Unknown [id number] 2.16.84 0.1.037475.3.579.2.593 1954 Unknown [id number] 2.16.84 0.1.334556.3.579.2.593 1954 Unknown [id number] 2.16.84 0.1.956595.3.579.2.593 1954 Unknown [id number] 2.16.84 0.1.340397.3.579.2.593 1954 Unknown [id number] 2.16.84 0.1.730167.3.579.2.593 1954 Unknown [id number] 2.16.84 0.1.008256.3.579.2.593 1954 Unknown [id number] 2.16.84 0.1.073270.3.579.2.593 1954 Unknown [id number] 2.16.84 0.1.967941.3.579.2.593 1954 Unknown [id number] 2.16.84 0.1.554837.3.579.2.593 1954 Unknown [id number] 2.16.84 0.1.728257.3.579.2.593 1954 Unknown [id number] 2.16.84 0.1.894007.3.579.2.593 1954 Unknown [id number] 2.16.84 0.1.560272.3.579.2.593 1954 Unknown [id number] 2.16.84 0.1.740349.3.579.2.593 1954 Unknown [id number] 2.16.84 0.1.287697.3.579.2.593 1954 Unknown [id number] 2.16.84 0.1.821882.3.579.2.593 Summary Purpose Family History No Family History Records Found Advance Directives No Advanced Directives Records Found Additional Source Comments (unrecognized sect ion and content) No Status Records Found INFORMATION SOURCE (unrecogn ized section and content) DATE CREATED AUTHOR 04/08/2023 [facility] FOR RECORDS PERTAINING TO PATIENTS WHO [...] ON THE PRIMARY CLINICAL RECORDS. [facility] [employer] [facility] provides no warranty or guarantee of the accuracy or completeness of information in this document.
--- NOTE | 2024-05-30 01:00 | XR_ITS ---
The [address] [address] Patient Name: CONSTANZA BARRETO MRN: [id number] date: 1955 Sex: M Assigned Patient Location: ER Current Patient Location: ER Accession/Order Number: [id number] Exam Date: 05/30/2024 01:37 Report Date: 05/30/2024 02:02 At the request of: DEMARCUS GARCIA Procedure: XR chest 1V EXAM: XR chest 1V HISTORY: sob COMPARISON: Chest radiograph dated 05/26/2024. TECHNIQUE: One view of the chest was obtained. FINDINGS: The cardiac silhouette is stable in size. Aortic atherosclerotic disease is seen. There is mild suspected bibasilar atelectasis. There is no significant pneumothorax or pleural effusion. There are remote rib fractures. No acute osseous abnormality is seen. XR/XR chest 1V IMPRESSION: 1. Mild bibasilar atelectasis with otherwise clear lungs. Electronically authenticated by: Erwin BELLO Date: 05/30/2024 02:02
[2024-05-30] MEDS: METHYLPREDNISOLONE SOD SUCC PF 125 MG/2 ML VIAL IM (01:08)
[2024-05-30] MEDS: ALBUTEROL SULFATE 2.5 MG/3 ML VIAL NEB IH (01:11)
[2024-05-30 01:12] VITALS: PULSE 85; O2SAT 92
--- NOTE | 2024-05-30 01:35 | ED_ITS ---
HPI - SOB/Dyspnea General Chief Complaint: Shortness of Breath/Dyspnea Stated Complaint: SOB Time Seen by Provider: 05/30/24 00:43 Source: patient Mode of arrival: walk-in Limitations: no limitations History of Present Illness HPI Narrative: 68-year-old male presents to the emergency department for shortness of breath. He has a history of COPD. This is his sixth visit in about 3 weeks. He does not have a primary care doctor. No fever or productive cough and he does not complain to me of chest pain. Symptoms started this afternoon after mowing grass. Related Data Home Medications ?Medication ?Instructions ?Recorded ?Confirmed albuterol sulfate 90 mcg/actuation 2 inh inhalation Q6H PRN shortness 03/13/24 05/26/24 aerosol inhaler of breath or wheezing Previous Rx's ?Medication ?Instructions ?Recorded losartan 100 mg tablet 100 mg PO DAILY #30 tabs 12/27/23 albuterol sulfate 2.5 mg/3 mL 2.5 mg (3 mL) inhalation Q6H PRN 05/26/24 (0.083 %) solution for nebulization shortness of breath or wheezing #90 mL loratadine 10 mg tablet (Claritin) 10 mg PO DAILY #20 tabs 05/30/24 Allergies Allergy/AdvReac Type Severity Reaction Status Date / Time No Known Drug Allergies Allergy Verified 05/30/24 00:40 Review of Systems ROS Narrative A ten point review of systems is negative except as noted above. [facility] Medical History (Updated 05/30/24 @ 02:17 by Diego Lilly MD) Hypokalemia ?E87.6 - Hypokalemia (ICD-10) New onset type 2 diabetes mellitus ?E11.9 - Type 2 diabetes mellitus without complications (ICD-10) Lower extremity edema ?R60.0 - Localized edema (ICD-10) Edema ?R60.9 - Edema, unspecified (ICD-10) Acute hyperglycemia ?R73.9 - Hyperglycemia, unspecified (ICD-10) Tobacco abuse ?Z72.0 - Tobacco use (ICD-10) HTN (hypertension) ?I10 - Essential (primary) hypertension (ICD-10) Community acquired pneumonia ?J18.9 - Pneumonia, unspecified organism (ICD-10) Chronic obstructive pulmonary disease ?J44.9 - Chronic obstructive pulmonary disease, unspecified (ICD-10) Acute exacerbation of chronic obstructive pulmonary disease (COPD) ?J44.1 - Chronic obstructive pulmonary disease with (acute) exacerbation (ICD-10) RLL pneumonia ?J18.9 - Pneumonia, unspecified organism (ICD-10) COPD (chronic obstructive pulmonary disease) ?J44.9 - Chronic obstructive pulmonary disease, unspecified (ICD-10) Surgical History (Updated 01/29/24 @ 06:45 by Latonia Martin RN) Hx of tonsillectomy ?Z90.89 - Acquired absence of other organs (ICD-10) Family History (Updated 12/25/23 @ 21:28 by Kym Ordaz) Mother Family history of cancer Family history of hypertension Father Family history of cancer Social History Within the past year, how often did you have a drink containing alcohol: 4 or more times a week Within the past year, how many standard drinks containing alcohol did you have on a typical day: 3 or 4 Within the past year, how often did you have six or more drinks on one occasion: less than monthly Total score: 3 Score interpretation: A score of 4 or more indicates drinking is likely to affect patient's safety. Smoking status: Current every day smoker Non-prescribed substance use: cannabis (any form) Previous occupational history: retired Highest level of school completed/degree received: high school graduate Are you now , , , , never or living with a partner: In a typical week, how many times do you talk on the telephone with family, friends, or neighbors: twice per week How often do you get together with friends or relatives: once per week How often do you attend evangelical or sikhism services: never Do you belong to any clubs or organizations such as evangelical groups unions, fraternal or athletic groups, or school groups: no Total score: 1 Score interpretation: A score of less than or equal to 1 indicates the most socially isolated. Little interest or pleasure in doing things: several days Feeling down, depressed, or hopeless: not at all Feel stressed/tense/nervous/anxious/difficulty sleeping: not at all Do you think of yourself as: straight/heterosexual Gender Identity: male Exam Narrative Exam Narrative: Nurses note and vital signs reviewed and patient is not hypoxic. General: The patient appears well and in no apparent distress. Patient is resting comfortably on cart. Skin: Warm, dry, no pallor noted. There is no rash noted. Head: Normocephalic, atraumatic Eye: Normal conjunctiva, no drainage Ears, Nose, Mouth, and Throat: oral mucosa is moist. Nares patent. Cardiovascular: Regular Rate and Rhythm Respiratory: Bilateral rhonchi present with good air movement Back: non-tender GI: Soft and nontender Musculoskeletal: The patient has no evidence of calf tenderness, no pitting edema, symmetrical pulses noted bilaterally Neurological: Awake and alert Psychiatric: Cooperative Constitutional Vital Signs, click to edit/add: Last Vital Signs Temp 99.8 F 05/30/24 00:41 Pulse 75 05/30/24 02:13 Resp 20 05/30/24 02:13 BP 191/94 H 05/30/24 02:13 Pulse Ox 93 L 05/30/24 02:13 O2 Del Method Room Air 05/30/24 02:13 Course Vital Signs Vital signs: Vital Signs Temperature 99.8 F 05/30/24 00:41 Pulse Rate 90 05/30/24 00:41 Respiratory Rate 20 05/30/24 00:41 Blood Pressure 187/97 H 05/30/24 00:41 Pulse Oximetry 92 L 05/30/24 00:41 Oxygen Delivery Method Room Air 05/30/24 00:41 Temperature 99.8 F 05/30/24 00:41 Pulse Rate 75 05/30/24 02:13 Respiratory Rate 20 05/30/24 02:13 Blood Pressure 191/94 H 05/30/24 02:13 Pulse Oximetry 93 L 05/30/24 02:13 Oxygen Delivery Method Room Air 05/30/24 02:13 MDM - SOB/Dyspnea MDM Narrative Medical decision making narrative: Chest x-ray shows no acute findings. He is feeling improved after IM Solu- Medrol and aerosol treatment. He is placed on Claritin. He was strongly encouraged to obtain a PCP. Treatment diagnosis and follow-up were discussed with the patient. Differential Diagnosis Differential diagnosis: Likely acute exacerbation of chronic obstructive airways disease and community acquired pneumonia Imaging Data Chest x-ray: Radiologist's impression: ITS Impressions Chest X-Ray 05/30/24 01:00 IMPRESSION: 1. Mild bibasilar atelectasis with otherwise clear lungs. Electronically authenticated by: Erwin BELLO Date: 05/30/2024 02:02 ECG Data Attestation: I personally reviewed and interpreted this ECG as follows: (EKG on my interpretation shows sinus rhythm without acute change) Discharge Plan Discharge Stand Alone Forms: Portal Instructions Chief Complaint: Shortness of Breath/Dyspnea Clinical Impression: COPD (chronic obstructive pulmonary disease) Patient Disposition: Home, Self-Care Time of Disposition Decision: 02:17 Condition: Good Mode of Transportation: Private Vehicle Prescriptions / Home Meds: New loratadine [Claritin] 10 mg tablet 10 mg PO DAILY Qty: 20 0RF No Action losartan 100 mg tablet 100 mg PO DAILY Qty: 30 11RF albuterol sulfate 90 mcg/actuation HFA aerosol inhaler 2 inh inhalation Q6H PRN (Reason: shortness of breath or wheezing) albuterol sulfate 2.5 mg /3 mL (0.083 %) solution for nebulization 2.5 mg inhalation Q6H PRN (Reason: shortness of breath or wheezing) Qty: 90 0RF Print Language: Nicaraguan Instructions: COPD (Chronic Obstructive Pulmonary Disease) (ED) Additional Instructions: Please obtain primary care physician. List provided. Referrals: SERG DUENAS [Primary Care Provider] - 1 week
[2024-05-30 02:13] VITALS: BP 191/94; PULSE 75; O2SAT 93
--- NOTE | 2024-05-30 05:16 | ECG_ITS ---
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
== END 2024-05-30 02:30 | disposition home or self-care (01) ==
PROVIDERS: Emergency Provider Emergency Medicine
DX: J44.9 Chronic obstructive pulmonary disease, unspecified (principal); R06.02 Shortness of breath; F17.200 Nicotine dependence, unspecified, uncomplicated
CPT/HCPCS: 71045; 93005; 94640; 96372; 99285; J2919

== ENCOUNTER 2024-06-12 12:57 | Emergency (ER) | payer MEDICARE, SELFPAY ==
[2024-06-12 13:02] VITALS: BP 172/87; PULSE 79; TEMP 36.8; O2SAT 96; BMI 23.3
--- OUTSIDE RECORDS SUMMARY | 2024-06-12 13:08 | XMS_ITS | CCD ---
Author Organization [facility] CliniSymi Care Team Providers Care Cage Shift Manager Name Role Phone REQUEST, DR NONE [...] source) Penicillin Drug Allergy [facility] Repository Problems Active Problems Problem Classification Problem [...] 03-27-2023 Episodic Other aftercare (1 source) Other long-term (current) drug therapy; Translations: [[facility]IV[facility] CURRENT DRUG THERAPY] Onset: 04-07-2023 Episodic Other [...] Performed By: #### C BC ####[facility] [address] [place] [address]Dr. Garima Pulliam Basophils/100 WBC (Bld) 0.3 % Normal 0.2-2.0 [facility] Comment on above: Performed By: #### C BC ####[facility] Eacorxfjgl[address] [place] [address]DrAdalberto Pulliam EO # 0.3 103/ul Normal 0.0-0.7 [facility] Comment on above: Performed By: #### C BC ####[facility] Nwsvok[address] [place], [place] [address]Dr. Garima Pulliam Eosinophils/100 WBC (Bld) 2.8 % Normal 0.9-7.0 [facility] Comment on above: Performed By: #### C BC ####[facility] Bjpiqxgurl6[address] [place] [address]Dr. Garima Pulliam Erythrocyte distribution width (RBC) [Ratio] 13.4 % Normal 11.0-15.0 [facility] Comment on above: Performed By: #### C BC ####[facility] Yewbxqonyk20[address] [place] [address]Dr. Garima Pulliam Hematocrit (Bld) [Volume fraction] 45.7 % Normal 42.0-54.0 [facility] Comment on above: Performed By: #### C BC ####[facility] Zizwpkkaby[address] [place] [address]Dr. Garima Pulliam Hemoglobin (Bld) [Mass/Vol] 15.2 g/dL Normal 14.0-18.0 [facility] Comment on above: Performed By: #### C BC ####[facility] Yjwyrnrcab[address] [place] [address]Dr. Garima Pulliam IG # 0.02 10e3/ul Normal 0.00-0.03 [facility] Comment on above: Performed By: #### C BC ####[facility] Bhblupabsq5512 [place] [address]Dr. Garima Pulliam IG % 0.2 % Normal 0.0-0.5 [facility] Comment on above: Performed By: #### C BC ####[facility] Smhhllcdwi[address] [place] [address]Dr. Garima Pulliam LYMPH # 2.1 103/ul Normal 1.2-3.8 [facility] Comment on above: Performed By: #### C BC ####[facility] Ajbexdcpqj47[address] [place] [address]Dr. Garima Pulliam Lymphocytes/100 WBC (Bld) 23.7 % Normal 20.5-60.0 [facility] Comment on above: Performed By: #### C BC ####[facility] Keivzadnfy[address] [place] [address]Dr. Garima Heraclio MANUAL DIFF REQ NO Normal [facility] Comment on above: Performed By: #### C BC ####[facility] Zpfvdfhxsc9[address] [place] [address]Dr. Garima Pulliam MCH (RBC) [Entitic mass] 30.4 pg Normal 25.9-34.0 [facility] Comment on above: Performed By: #### C BC ####[facility] Nzztyatkqf00[address] [place] [address]Dr. Garima Heraclio MCHC (RBC) [Mass/Vol] 33.3 g/dL Normal 29.9-35.2 [facility] Comment on above: Performed By: #### C BC ####[facility] Ssroqjrfwx[address] [place], [place] [address]Dr. Chapisrenu Pulliam MCV (RBC) [Entitic vol] 91.4 fL Normal 80.0-94.0 [facility] Comment on above: Performed By: #### C BC ####[facility] Msgwwbesbv[address] [place], [place] [address]Dr. Garima Heraclio MONO # 0.7 103/ul Normal 0.3-0.8 [facility] Comment on above: Performed By: #### C BC ####[facility] Oilrlrhwie[address] [place], [place] [address]Dr. Chapisrenu Pulliam Monocytes/100 WBC (Bld) 8.3 % Normal 1.7-12.0 [facility] Comment on above: Performed By: #### C BC ####[facility] Izrwefqvda25[address] [place] [address]Dr. Chapisrenu Heraclio NEUT # 5.8 103/ul Normal 1.4-6.5 [facility] Comment on above: Performed By: #### C BC ####[facility] Ninqlmnkxg[address] [place], [place] [address]Dr. Garima Pulliam Neutrophils/100 WBC (Bld) 64.7 % Normal 43.0-75.0 [facility] Comment on above: Performed By: #### C BC ####[facility] Jxvzqdtizl5386 [place] [address]Dr. Garima Pulliam Platelet mean volume (Bld) [Entitic vol] 8.6 fL Critically low 9.5-13.5 [facility] Comment on above: Performed By: #### C BC ####[facility] Lffydqmvyf350[address] [place] [address]Dr. Garima Pulliam PLT 230 103/ul Normal 150-450 [facility] Comment on above: Performed By: #### C BC ####[facility] Telqfyibkw3220 [place] [address]Dr. Chapisrenu Heraclio RBC 5.00 106/ul Normal 4.70-6.10 [facility] Comment on above: Performed By: #### C BC ####[facility] Uuwxotuzuj68[address] [place] [address]Dr. Garima Heraclio WBC 9.0 103/ul Normal 4.0-11.0 [facility] Comment on above: Performed By: #### C BC ####[facility] Zlkmfpgidr7764 [place] [address]Dr. Garima Pulliam MAGNESIUMon 04-04-2023 Magnesium [Mass/Vol] 1.8 mg/dL Normal 1.8-2.4 [facility] Comment on above: Performed By: #### M G ####[facility] Sqlnwldvbn1018 [place] [address]Dr. Chapisrenu Pulliam PROF 14(COMP METB)on 023 Albumin [Mass/Vol] 3.8 g/dL Normal 3.4-5.0 [facility] Comment on above: Performed By: #### C MP ####[facility] Qvycumnvoe6497 [place] [address]Dr. Garima Pulliam Albumin/Globulin [Mass ratio] 1.2 {ratio} Normal [facility] Comment on above: Performed By: #### C MP ####[facility] Ugjostghdw4[address] [place] [address]Dr. Garima Heraclio ALP [Catalytic activity/Vol] 84 U/L Normal 46-116 [facility] Comment on above: Performed By: #### C MP ####[facility] Ciohqfjmnl[address] [place] [id number]. Garima Pulliam ALT [Catalytic activity/Vol] 31 U/L Normal 16-63 [facility] Comment on above: Performed By: #### C MP ####[facility] Pswjfueabj2720 [place] [address]Dr. Garima Pulliam Anion gap [Moles/Vol] 12.2 mmol/L Normal [facility] Comment on above: Performed By: #### C MP ####[facility] Xhicqnnvup0480 [place] [address]Dr. Garima Pulliam AST [Catalytic activity/Vol] 23 U/L Normal 15-37 [facility] Comment on above: Performed By: #### C MP ####[facility] Dmxdodmisk[address] [place], [place] [address]Dr. Garima Pulliam Bilirubin [Mass/Vol] 0.5 mg/dL Normal 0.2-1.0 [facility] Comment on above: Performed By: #### C MP ####[facility] Sjqwgrgqtu[address] [place], [place] [address]Dr. Garima Pulliam Calcium [Mass/Vol] 9.2 mg/dL Normal 8.5-10.1 [facility] Comment on above: Performed By: #### C MP ####[facility] Vfvbihslox[address] [place], [place] [address]Dr. Garima Pulliam Chloride [Moles/Vol] 103 mmol/L Normal 98-107 [facility] Comment on above: Performed By: #### C MP ####[facility] Picqdfgush[address] [place] [address]Dr. Garima Pulliam CO2 [Moles/Vol] 28.5 mmol/L Normal 21.0-32.0 [facility] Comment on above: Performed By: #### C MP ####[facility] Bdsoleskpb[address] [place], [place] [address]Dr. Garima Pulliam Creatinine [Mass/Vol] 0.74 mg/dL Normal 0.70-1.30 [facility] Comment on above: Performed By: #### C MP ####[facility] [address]fzrenyett[address] [place] [id number]. Garima Pulliam EGFR-AF TURKISH >60 Normal >=60 [facility] Comment on above: Performed By: #### C MP ####[facility] Vggcarorcy6037 [place] [address]Dr. Garima Heraclio EGFR-NON AF TURKISH >60 Normal >=60 [facility] Comment on above: Performed By: #### C MP ####[facility] Ahkdlljpsd6469 [place] [phone]. Garima Heraclio Globulin (S) [Mass/Vol] 3.1 g/dL Normal [facility] Comment on above: Performed By: #### C MP ####[facility] Wgziqufeup[address] [place], [place] [address]Dr. Garima Heraclio Glucose [Mass/Vol] 93 mg/dL Normal 74-106 [facility] Comment on above: Performed By: #### C MP ####[facility] Lwqgajtoat[address] [place], [place] [address]Dr. Garima Heraclio Potassium [Moles/Vol] 3.7 mmol/L Normal 3.5-5.1 [facility] Comment on above: Performed By: #### C MP ####[facility] Ukupsnrrqv[address] [place], [place] [address]Dr. Garima Heraclio Protein [Mass/Vol] 6.9 g/dL Normal 6.4-8.2 [facility] Comment on above: Performed By: #### C MP ####[facility] Remuchwyyl[address] [place], [place] [address]Dr. Garima Heraclio Sodium [Moles/Vol] 140 mmol/L Normal 136-145 [facility] Comment on above: Performed By: #### C MP ####[facility] Knecxpnmjb[address] [place], [place] [address]Dr. Garima Pulliam Urea nitrogen [Mass/Vol] 8.0 mg/dL Normal 7.0-18.0 [facility] Comment on above: Performed By: #### C MP ####[facility] Ghxrzigyyz6[address] [place], [place] [address]Dr. Garima Pulliam Urea nitrogen/Creatinine [Mass ratio] 10.8 mg/mg Normal [facility] Comment on above: Performed By: #### C DAVID ####[facility] Dwggejvyzt[address] [place] [address]Dr. Garima Pulliam AMMONIAon 03-30-2023 Ammonia (P) [Moles/Vol] 11 umol/L Normal 11-32 [facility] Comment on above: Performed By: #### A MM ####[facility] Haymjjkszr[address] [place], [place] [address]Dr. Garima Pulliam CARDIAC NASH ADMITon 023 CK [Catalytic activity/Vol] 232 U/L Normal 39-308 [facility] Comment on above: Performed By: #### C NANCY HERNANDEZ ####[facility] Mnejouhhbb1822 [place] [address]Dr. Chapisrenu Pulliam CK.MB [Mass/Vol] 4.83 ng/mL Critically high <=3.60 [facility] Comment on above: Performed By: #### C NANCY HERNANDEZ ####[facility] Jsaexcfotu[address] [place], [place] [address]Dr. Garima Pulliam HSTROP 10.5 pg/mL Normal 4.0-76.1 [facility] Comment on above: Result Comment: CUT- OFF POINTS HAVE BEEN ESTABLISHED BASED ON THE FOURTH UNIVERSAL DEFINITIONS OF MYOCARDIALINFARCTION. THE UPPER REFERENCE LIMIT (URL) OF TROPONIN, DEFINED THE 99TH PERCENTILE OFcTnI DISTRIBUTION IN A REFERENCE POPULATION, HAS BEEN CONFIRMED THE DECISION THRESHOLDFOR MO DIAGNOSIS. Performed By: #### C NANCY HERNANDEZ ####[facility] Evycynocoe[address] [place], [place] [address]Dr. Gairma Heraclio DORIS 79 ng/mL Normal 16-96 [facility] Comment on above: Performed By: #### C NANCY HERNANDEZ ####[facility] U[address]zrxehdhx[address] [place], [place] [address]Dr. Garima Heraclio CBC AUTO DIFFon 03-30-2023 BASO # 0.0 103/ul Normal 0.0-0.1 [facility] Comment on above: Performed By: #### C BC ####[facility] Fmpcwfphtx69[address] [place] [id number]. Garima Pulliam Basophils/100 WBC (Bld) 0.1 % Critically low 0.2-2.0 [facility] Comment on above: Performed By: #### C BC ####[facility] Nxgnrfpvqf0344 [place] [id number]. Garima Pulliam EO # 0.3 103/ul Normal 0.0-0.7 [facility] Comment on above: Performed By: #### C BC ####[facility] [address]ve[address]xuc[address] [place], [place] [address]Dr. Garima Pulliam Eosinophils/100 WBC (Bld) 3.3 % Normal 0.9-7.0 [facility] Comment on above: Performed By: #### C BC ####[facility] Ujqrhardfy[address] [place], [place] [address]Dr. Garima Pulliam Erythrocyte distribution width (RBC) [Ratio] 13.5 % Normal 11.0-15.0 [facility] Comment on above: Performed By: #### C BC ####[facility] Ngkjhcultf[address] [place], [place] [address]Dr. Garima Pulliam Hematocrit (Bld) [Volume fraction] 42.9 % Normal 42.0-54.0 [facility] Comment on above: Performed By: #### C BC ####[facility] [address]csi[address] [place], [place] [address]Dr. Garima Pulliam Hemoglobin (Bld) [Mass/Vol] 13.9 g/dL Critically low 14.0-18.0 [facility] Comment on above: Performed By: #### C BC ####[facility] Dwsceoluyw64[address] [place] [id number]. Garima Pulliam IG # 0.01 10e3/ul Normal 0.00-0.03 [facility] Comment on above: Performed By: #### C BC ####[facility] Cxx[address]key[address] [place], [place] [address]Dr. Garima Pulliam IG % 0.1 % Normal 0.0-0.5 [facility] Comment on above: Performed By: #### C BC ####[facility] Nsfhitdnro3359 [place] [id number]. Garima Pulliam LYMPH # 1.7 103/ul Normal 1.2-3.8 [facility] Comment on above: Performed By: #### C BC ####[facility] Nhtdrndgah3377 [place], [place] [address]Vt. Garima Pulliam Lymphocytes/100 WBC (Bld) 22.8 % Normal 20.5-60.0 [facility] Comment on above: Performed By: #### C BC ####[facility] Pxueosnzsa25[address] [place] [id number]. Garima Heraclio MANUAL DIFF REQ NO Normal [facility] Comment on above: Performed By: #### C BC ####[facility] Huddvkgank[address] [place] [phone]. Garima Heraclio MCH (RBC) [Entitic mass] 30.5 pg Normal 25.9-34.0 [facility] Comment on above: Performed By: #### C BC ####[facility] Jgbtqjhxyu1206 [place] [phone]. Garima Pulliam MCHC (RBC) [Mass/Vol] 32.4 g/dL Normal 29.9-35.2 [facility] Comment on above: Performed By: #### C BC ####[facility] Iindkysjgb2378 [place] [phone]. Garima Heraclio MCV (RBC) [Entitic vol] 94.1 fL Critically high 80.0-94.0 [facility] Comment on above: Performed By: #### C BC ####[facility] Zrvybqdgwk8832 [place] [id number]. Garima Heraclio MONO # 0.7 103/ul Normal 0.3-0.8 [facility] Comment on above: Performed By: #### C BC ####[facility] Aoiglxycup0698 [place] [id number]. Garima Heraclio Monocytes/100 WBC (Bld) 8.6 % Normal 1.7-12.0 [facility] Comment on above: Performed By: #### C BC ####[facility] Yidplajbdm1091 [place] [phone]. Garima Pulliam NEUT # 4.9 103/ul Normal 1.4-6.5 [facility] Comment on above: Performed By: #### C BC ####[facility] Zbegpalewt4551 [place] [id number]. Garima Pulliam Neutrophils/100 WBC (Bld) 65.1 % Normal 43.0-75.0 [facility] Comment on above: Performed By: #### C BC ####[facility] Ojtoawhkie4216 [place] [phone]. Garima Pulliam Platelet mean volume (Bld) [Entitic vol] 8.5 fL Critically low 9.5-13.5 [facility] Comment on above: Performed By: #### C BC ####[facility] Xjnammjdow87[address] [place] [phone]. Garima Pulliam PLT 219 103/ul Normal 150-450 [facility] Comment on above: Performed By: #### C BC ####[facility] Lhgfdaltil3048 [place] [phone]. Garima Pulliam RBC 4.56 106/ul Critically low 4.70-6.10 [facility] Comment on above: Performed By: #### C BC ####[facility] Juuxoqsoqp5[address] [place] [phone]. Garima Pulliam WBC 7.6 103/ul Normal 4.0-11.0 [facility] Comment on above: Performed By: #### C BC ####[facility] Xxjogbeoos4517 [place] [phone]. Garima Pulliam LACTATE/LACTIC ACIDon 2022 Lactate [Moles/Vol] 1.2 mmol/L Normal 0.4-2.0 [facility] Comment on above: Performed By: #### L ACT ####[facility] Nbfueprnyy[address] [place] [phone]. Garima Pulliam MAGNESIUMon 03-30-2023 Magnesium [Mass/Vol] 1.8 mg/dL Normal 1.8-2.4 [facility] Comment on above: Performed By: #### M G ####[facility] Xsupzlyfbc[address] [place] [address]Dr. Garima Pulliam PROF 14(COMP METB)on 023 Albumin [Mass/Vol] 3.5 g/dL Normal 3.4-5.0 [facility] Comment on above: Performed By: #### C DAVID, CMAANA ROSA ####[facility] Zclnrbhtle8[address] [place] [address]Dr. Garima Pulliam Albumin/Globulin [Mass ratio] 1.2 {ratio} Normal [facility] Comment on above: Performed By: #### C DAVID, CMAANA ROSA ####[facility] Dpaqbuxzqk8[address] [place] [address]Dr. Garima Pulliam ALP [Catalytic activity/Vol] 85 U/L Normal 46-116 [facility] Comment on above: Performed By: #### C DAVID, CMAANA ROSA ####[facility] R[address]ptzflqea[address] [place], [place] [address]Dr. Garima Pulliam ALT [Catalytic activity/Vol] 29 U/L Normal 16-63 [facility] Comment on above: Performed By: #### C DAVID, CMAANA ROSA ####[facility] Feowirxsst3626 [place] [address]Dr. Garima Pulliam Anion gap [Moles/Vol] 8.0 mmol/L Normal [facility] Comment on above: Performed By: #### C DAVID, CMAANA ROSA ####[facility] Mlymfdxjlw9420 [place] [address]Dr. Garima Pulliam AST [Catalytic activity/Vol] 18 U/L Normal 15-37 [facility] Comment on above: Performed By: #### C DAVID, CMADM ####[facility] Lhevgjdjry35[address] [place] [address]Dr. Garima Pulliam Bilirubin [Mass/Vol] 0.4 mg/dL Normal 0.2-1.0 [facility] Comment on above: Performed By: #### C DAVID, CMADM ####[facility] Ldvaracqml0739 [place] [address]Dr. Garima Pulliam Calcium [Mass/Vol] 8.8 mg/dL Normal 8.5-10.1 [facility] Comment on above: Performed By: #### C DAVID, NANCY ####[facility] Kbnzdoqboj2517 [place] [address]Dr. Chapisrenu Pulliam Chloride [Moles/Vol] 108 mmol/L Critically high 98-107 [facility] Comment on above: Performed By: #### C DAVID, NANCY ####[facility] Usvrgxskan1671 [place] [address]Dr. Garima Pulliam CO2 [Moles/Vol] 29.6 mmol/L Normal 21.0-32.0 [facility] Comment on above: Performed By: #### C NANCY HERNANDEZ ####[facility] Kdlbglukqk[address] [place], [place] [address]Dr. Garima Pulliam Creatinine [Mass/Vol] 0.77 mg/dL Normal 0.70-1.30 [facility] Comment on above: Performed By: #### C NANCY HERNANDEZ ####[facility] Fdemjwcshd[address] [place], [place] [address]Dr. Garima Heraclio EGFR-AF TURKISH >60 Normal >=60 [facility] Comment on above: Performed By: #### C NANCY HERNANDEZ ####[facility] [address]vcyjepz[address] [place], [place] [address]Dr. Garima Heraclio EGFR-NON AF TURKISH >60 Normal >=60 [facility] Comment on above: Performed By: #### C NANCY HERNANDEZ ####[facility] Gwihlfvwav6371 [place] [address]Dr. Garima Pulliam Globulin (S) [Mass/Vol] 2.8 g/dL Normal [facility] Comment on above: Performed By: #### C NANCY HERNANDEZ ####[facility] Zrrujxftir5659 [place] [address]Dr. Garima Pulliam Glucose [Mass/Vol] 207 mg/dL Critically high 74-106 [facility] Comment on above: Performed By: #### C NANCY HERNANDEZ ####[facility] X[address]qgqkzd[address] [place], [place] [address]Dr. Garima Pulliam Potassium [Moles/Vol] 4.6 mmol/L Normal 3.5-5.1 [facility] Comment on above: Performed By: #### C DAVID, NANCY ####[facility] Mukxdbocwa[address] [place] [address]Dr. Garima Pulliam Protein [Mass/Vol] 6.3 g/dL Critically low 6.4-8.2 [facility] Comment on above: Performed By: #### C DAVID, NANCY ####[facility] Iacvoajpgk3252 [place] [address]Dr. Garima Pulliam Sodium [Moles/Vol] 141 mmol/L Normal 136-145 [facility] Comment on above: Performed By: #### C DAVID, NANCY ####[facility] Nahqavwmmn5714 [place] [address]Dr. Garima Pulliam Urea nitrogen [Mass/Vol] 9.0 mg/dL Normal 7.0-18.0 [facility] Comment on above: Performed By: #### C DAVID, NANCY ####[facility] Eiglpvmnxi0657 [place] [address]Dr. Garima Pulliam Urea nitrogen/Creatinine [Mass ratio] 11.7 mg/mg Normal [facility] Comment on above: Performed By: #### C DAVID, NANCY ####[facility] Jrxpbitphl8866 [place] [address]Dr. Garima Pulliam XR CHEST 1 Von 03-30-2023 XR CHEST 1 V Normal [facility] BNPon 03-27-2023 Natriuretic peptide B (Bld) [Mass/Vol] 251.0 pg/mL Normal <=900.0 [facility] Comment on above: Performed By: #### C MP, BNP, LIPID ####[facility] Kghjoxbwzl17[address] [place] [address]Dr. Garima Pulliam GLYCOHEMOGLOBIN A1Con 2022 ADA RECOMMENDATION SEE BELOW Normal [facility] Comment on above: Result Comment: ADA RECOMMENDED LIMIT 4.0 - 6.0 ADA THERAPEUTIC TARGET < 7.0 ACTION SUGGESTED > 7.0 Performed By: #### A 1C ####[facility] Uurdqecbsm8152 [place] [address]Dr. Garima Pulliam Glucose [Mass/Vol] 180 mg/dL Normal [facility] Comment on above: Performed By: #### A 1C ####[facility] Mtvemvczie[address] [place], [place] [address]Dr. Chapisrenu Pulliam HbA1c (Bld) [Mass fraction] 7.9 % Critically high 4.5-6.2 [facility] Comment on above: Performed By: #### A 1C ####[facility] Zvsduuxnas[address] [place], [place] [address]Dr. Garima Pulliam HEMOGRAM AND PLATELon 2022 Hematocrit (Bld) [Volume fraction] 45.7 % Normal 42.0-54.0 [facility] Comment on above: Performed By: #### H H ####[facility] Cylkpvlfec[address] [place], [place] [address]Dr. Garima Pulliam Hemoglobin (Bld) [Mass/Vol] 15.1 g/dL Normal 14.0-18.0 [facility] Comment on above: Performed By: #### H H ####[facility] T[address]gsvaivt[address] [place], [place] [address]Dr. Garima Pulliam MCH (RBC) [Entitic mass] 30.0 pg Normal 25.9-34.0 [facility] Comment on above: Performed By: #### H H ####[facility] Xcoyxhfjxz[address] [place], [place] [address]Dr. Garima Pulliam MCHC (RBC) [Mass/Vol] 33.0 g/dL Normal 29.9-35.2 [facility] Comment on above: Performed By: #### H H ####[facility] Ricrqeeiqj[address] [place], [place] [address]Dr. Garima Pulliam MCV (RBC) [Entitic vol] 90.7 fL Normal 80.0-94.0 [facility] Comment on above: Performed By: #### H H ####[facility] [address]wjemmm[address]if[address] [place], [place] [address]Dr. Garima Pulliam PLT 222 103/ul Normal 150-450 [facility] Comment on above: Performed By: #### H H ####[facility] Becpytnczf[address] [place] [id number]. Garima Pulliam RBC 5.04 106/ul Normal 4.70-6.10 [facility] Comment on above: Performed By: #### H H ####[facility] Oxfljxjqhu7098 [place] [id number]. Garima Pulliam WBC 8.7 103/ul Normal 4.0-11.0 [facility] Comment on above: Performed By: #### H H ####[facility] Hdaeiyvnsm9539 [place] [id number]. Garima Pulliam LIPID PROFILEon 03-27-2023 CHOL-HDL RATIO NORM SEE BELOW Normal [facility] Comment on above: Result Comment: 3.3 - 4.4 LOW RISK 4.4 - 7.1 AVERAGE RISK 7.1 - 11.0 MODERATE RISK >11.0 HIGH RISK Performed By: #### C MP, BNP, LIPID ####[facility] Ywfxs[address] [place] [address]Dr. Garima Pulliam Cholesterol [Mass/Vol] 113 mg/dL Normal <=200 [facility] Comment on above: Performed By: #### C MP, BNP, LIPID ####[facility] Pyhvgzbrym[address] [place] [address]Dr. Garima Pulliam Cholesterol in HDL [Mass/Vol] 51 mg/dL Normal 40-60 [facility] Comment on above: Performed By: #### C MP, BNP, LIPID ####[facility] Xgtvfmjqsq9[address] [place] [address]Dr. Garima Pulliam Cholesterol in LDL [Mass/Vol] 49.8 mg/dL Normal [facility] Comment on above: Performed By: #### C MP, BNP, LIPID ####[facility] Hvhoyjprjj[address] [place] [address]Dr. Garima Pulliam Cholesterol.total/Cho lesterol in HDL [Mass ratio] 2.2 {ratio} Normal [facility] Comment on above: Performed By: #### C MP, BNP, LIPID ####[facility] Pwtzwjlthb[address] [place] [address]Dr. Garima Pulliam HDL NORMAL > or = 60 mg/dl - LOW CARDIOVASCULAR RISK <40 mg/dl - HIGH CARDIOVASCULAR RISK Normal [facility] Comment on above: Performed By: #### C MP, BNP, LIPID ####[facility] Oxtnqitmar[address] [place] [address]Dr. Garima Pulliam LDL CALC NORMAL SEE BELOW Normal [facility] Comment on above: Result Comment: <100 mg/dl OPTIMAL 100 - 129 mg/dl NEAR OR ABOVE OPTIMAL 130 - 159 mg/dl BORDERLINE HIGH 160 - 189 mg/dl HIGH >190 mg/dl VERY HIGH Performed By: #### C MP, BNP, LIPID ####[facility] [address]as[address]xxjqf[address] [place] [address]Dr. Garima Pulliam Triglyceride [Mass/Vol] 61 mg/dL Normal <=150 [facility] Comment on above: Performed By: #### C MP, BNP, LIPID ####[facility] Puecfxbgdm[address] [place] [address]Dr. Garima Pulliam VLDL CALC 12.2 mg/dL Normal [facility] Comment on above: Performed By: #### C MP, BNP, LIPID ####[facility] Tktnhzjral[address] [place] [address]Dr. Garima Pulliam PROF 14(COMP METB)on 023 Albumin [Mass/Vol] 3.5 g/dL Normal 3.4-5.0 [facility] Comment on above: Performed By: #### C MP, BNP, LIPID ####[facility] Bwrezhezfe[address] [place] [address]Dr. Garima Pulliam Albumin/Globulin [Mass ratio] 1.2 {ratio} Normal [facility] Comment on above: Performed By: #### C MP, BNP, LIPID ####[facility] Hdylbynxkq35[address] [place] [address]Dr. Garima Pulliam ALP [Catalytic activity/Vol] 82 U/L Normal 46-116 [facility] Comment on above: Performed By: #### C MP, BNP, LIPID ####[facility] Hvbqwimesy3[address] [place] [address]Dr. Garima Pulliam ALT [Catalytic activity/Vol] 33 U/L Normal 16-63 [facility] Comment on above: Performed By: #### C MP, BNP, LIPID ####[facility] Akkgppqxpv32[address] [place] [address]Dr. Garima Pulliam Anion gap [Moles/Vol] 9.9 mmol/L Normal [facility] Comment on above: Performed By: #### C MP, BNP, LIPID ####[facility] Cdyhgksgtx37[address] [place] [address]Dr. Garima Pulliam AST [Catalytic activity/Vol] 24 U/L Normal 15-37 [facility] Comment on above: Performed By: #### C MP, BNP, LIPID ####[facility] Pquqjnzcuj69[address] [place] [address]Dr. Garima Pulliam Bilirubin [Mass/Vol] 0.6 mg/dL Normal 0.2-1.0 [facility] Comment on above: Performed By: #### C MP, BNP, LIPID ####[facility] Unncrvrunw87[address] [place] [address]Dr. Garima Pulliam Calcium [Mass/Vol] 9.2 mg/dL Normal 8.5-10.1 [facility] Comment on above: Performed By: #### C MP, BNP, LIPID ####[facility] Pkneuzckdv4635 [place] [address]Dr. Garima Pulliam Chloride [Moles/Vol] 106 mmol/L Normal 98-107 [facility] Comment on above: Performed By: #### C MP, BNP, LIPID ####[facility] Gejmdzewec38[address] [place] [address]Dr. Garima Pulliam CO2 [Moles/Vol] 32.3 mmol/L Critically high 21.0-32.0 [facility] Comment on above: Performed By: #### C MP, BNP, LIPID ####[facility] Dcjpobgmrf0436 [place] [address]Dr. Garima Pulliam Creatinine [Mass/Vol] 0.70 mg/dL Normal 0.70-1.30 [facility] Comment on above: Performed By: #### C MP, BNP, LIPID ####[facility] [address]fwrtrpr[address] [place] [id number]. Garima Pulliam EGFR-AF TURKISH >60 Normal >=60 [facility] Comment on above: Performed By: #### C MP, BNP, LIPID ####[facility] Bapqctvdxv90[address] [place] [phone]. Garima Pulliam EGFR-NON AF TURKISH >60 Normal >=60 [facility] Comment on above: Performed By: #### C MP, BNP, LIPID ####[facility] Qtspjulxyb1084 [place] [address]Dr. Garima Pulliam Globulin (S) [Mass/Vol] 2.9 g/dL Normal [facility] Comment on above: Performed By: #### C MP, BNP, LIPID ####[facility] Wowxpbhyjj5[address] [place] [address]Dr. Garima Pulliam Glucose [Mass/Vol] 111 mg/dL Critically high 74-106 [facility] Comment on above: Performed By: #### C MP, BNP, LIPID ####[facility] Quurgthuzg4[address] [place] [address]Dr. Garima Pulliam Potassium [Moles/Vol] 4.2 mmol/L Normal 3.5-5.1 [facility] Comment on above: Performed By: #### C MP, BNP, LIPID ####[facility] M[address]ijgkpps97[address] [place] [address]Dr. Garima Pulliam Protein [Mass/Vol] 6.4 g/dL Normal 6.4-8.2 [facility] Comment on above: Performed By: #### C MP, BNP, LIPID ####[facility] Iqwprybiqg0684 [place] [address]Dr. Garima Pulliam Sodium [Moles/Vol] 144 mmol/L Normal 136-145 [facility] Comment on above: Performed By: #### C MP, BNP, LIPID ####[facility] Xnwsoikfqh7318 [place] [address]Dr. Garima Pulliam Urea nitrogen [Mass/Vol] 7.0 mg/dL Normal 7.0-18.0 [facility] Comment on above: Performed By: #### C MP, BNP, LIPID ####[facility] Gxxonbzqao[address] [place], [place] [address]Dr. Garima Pulliam Urea nitrogen/Creatinine [Mass ratio] 10.0 mg/mg Normal [facility] Comment on above: Performed By: #### C MP, BNP, LIPID ####[facility] Chbagslzgu[address] [place], [place] [address]Dr. Garima Pulliam BNPon 03-22-2023 Natriuretic peptide B (Bld) [Mass/Vol] 103.0 pg/mL Normal <=900.0 [facility] Comment on above: Performed By: #### B FORGE TENDER, BMP ####[facility] Ydzdiudkgl[address] [place], [place] [address]Dr. Garima Pulliam CBC AUTO DIFFon 03-22-2023 BASO # 0.0 103/ul Normal 0.0-0.1 [facility] Comment on above: Performed By: #### C BC ####[facility] Yzmsyagipm[address] [place], [place] [address]Dr. Garima Heraclio Basophils/100 WBC (Bld) 0.3 % Normal 0.2-2.0 [facility] Comment on above: Performed By: #### C BC ####[facility] Bbdtivpmpp[address] [place], [place] [address]Dr. Garima Pulliam EO # 0.2 103/ul Normal 0.0-0.7 [facility] Comment on above: Performed By: #### C BC ####[facility] Ctzoriuxhc[address] [place], [place] [address]Dr. Garima Pulliam Eosinophils/100 WBC (Bld) 2.2 % Normal 0.9-7.0 [facility] Comment on above: Performed By: #### C BC ####[facility] Mrscgkyvkd[address] [place], [place] [address]Dr. Garima Pulliam Erythrocyte distribution width (RBC) [Ratio] 13.2 % Normal 11.0-15.0 [facility] Comment on above: Performed By: #### C BC ####[facility] [address]ymnlpnqt[address] [place] [phone]. Garima Pulliam Hematocrit (Bld) [Volume fraction] 43.4 % Normal 42.0-54.0 [facility] Comment on above: Performed By: #### C BC ####[facility] Xnoafkkflv[address] [place] [address]Dr. Garima Heraclio Hemoglobin (Bld) [Mass/Vol] 14.3 g/dL Normal 14.0-18.0 [facility] Comment on above: Performed By: #### C BC ####[facility] Yctvesiqqe4983 [place] [address]Dr. Garima Pulliam IG # 0.02 10e3/ul Normal 0.00-0.03 [facility] Comment on above: Performed By: #### C BC ####[facility] Sxcuvdeinf[address] [place] [address]Dr. Garima Pulliam IG % 0.3 % Normal 0.0-0.5 [facility] Comment on above: Performed By: #### C BC ####[facility] Eojiujzife4[address] [place] [address]Dr. Chapisrenu Pullaim LYMPH # 2.0 103/ul Normal 1.2-3.8 [facility] Comment on above: Performed By: #### C BC ####[facility] Xojhlngesi74[address] [place] [address]Dr. Chapisrenu Pulliam Lymphocytes/100 WBC (Bld) 24.8 % Normal 20.5-60.0 [facility] Comment on above: Performed By: #### C BC ####[facility] Xmrxfrrwmm[address] [place] [address]Dr. Chapisrenu Pulliam MANUAL DIFF REQ NO Normal [facility] Comment on above: Performed By: #### C BC ####[facility] Ebtfqrcapg4[address] [place] [address]Dr. Garima Heraclio MCH (RBC) [Entitic mass] 30.0 pg Normal 25.9-34.0 [facility] Comment on above: Performed By: #### C BC ####[facility] Ercrnwxhpg[address] [place], [place] [address]Dr. Garima Pulliam MCHC (RBC) [Mass/Vol] 32.9 g/dL Normal 29.9-35.2 [facility] Comment on above: Performed By: #### C BC ####[facility] Yvsmbqzgme4[address] [place] [phone]. Garima Pulliam MCV (RBC) [Entitic vol] 91.0 fL Normal 80.0-94.0 [facility] Comment on above: Performed By: #### C BC ####[facility] Bkexltzyer15[address] [place] [phone]. Garima Heraclio MONO # 0.8 103/ul Normal 0.3-0.8 [facility] Comment on above: Performed By: #### C BC ####[facility] Biumjaepad[address] [place] [address]Dr. Chapisrenu Pulliam Monocytes/100 WBC (Bld) 9.7 % Normal 1.7-12.0 [facility] Comment on above: Performed By: #### C BC ####[facility] Invubwykip6[address] [place] [address]Dr. Garima Pulliam NEUT # 4.9 103/ul Normal 1.4-6.5 [facility] Comment on above: Performed By: #### C BC ####[facility] Gpsogoobsq8[address] [place] [phone]. Garima Heraclio Neutrophils/100 WBC (Bld) 62.7 % Normal 43.0-75.0 [facility] Comment on above: Performed By: #### C BC ####[facility] Qtuckbadhb8845 [place] [phone]. Garima Heraclio Platelet mean volume (Bld) [Entitic vol] 8.8 fL Critically low 9.5-13.5 [facility] Comment on above: Performed By: #### C BC ####[facility] Fjivfcntyy[address] [place] [phone]. Garima Heraclio PLT 198 103/ul Normal 150-450 [facility] Comment on above: Performed By: #### C BC ####[facility] Aphsvqmmww5432 [place] [phone]. Garima Heraclio RBC 4.77 106/ul Normal 4.70-6.10 [facility] Comment on above: Performed By: #### C BC ####[facility] Snilxcrxrw[address]3 [place] [phone]. Garima Heraclio WBC 7.9 103/ul Normal 4.0-11.0 [facility] Comment on above: Performed By: #### C BC ####[facility] Hmsqfiltwg4313 [place] [phone]. Garima Heraclio D-DIMERon 03-22-2023 D-DIMER 0.85 mg/L FEU Critically high <=0.59 [facility] Comment on above: Performed By: #### D DIM ####[facility] Bbjvoyatfl17[address] [place] [address]Dr. Garima Pulliam D-DIMER COMMENTS SEE BELOW Normal [facility] Comment on above: Result Comment: Incr [...] Performed By: #### D DIM ####[facility] Uktaxvbhxw[address] [place], [place] [address]Dr. Garima Pulliam PROF CHEM 8 (BAS METB)on Anion gap [Moles/Vol] 6.9 mmol/L Normal [facility] Comment on above: Performed By: #### B FORGE TENDER, BMP ####[facility] Zjxnwnffyt30[address] [place] [address]Dr. Garima Pulliam Calcium [Mass/Vol] 8.9 mg/dL Normal 8.5-10.1 [facility] Comment on above: Performed By: #### B FORGE TENDER, BMP ####[facility] Fscgafnjrw55[address] [place] [address]Dr. Garima Pulliam Chloride [Moles/Vol] 101 mmol/L Normal 98-107 [facility] Comment on above: Performed By: #### B FORGE TENDER, BMP ####[facility] Rpepesguuy[address] [place], [place] [address]Dr. Chapisrenu Heraclio CO2 [Moles/Vol] 30.7 mmol/L Normal 21.0-32.0 [facility] Comment on above: Performed By: #### B FORGE TENDER, BMP ####[facility] Pfhnmelruo85[address] [place], [place] [address]Dr. Garima Pulliam Creatinine [Mass/Vol] 0.82 mg/dL Normal 0.70-1.30 [facility] Comment on above: Performed By: #### B FORGE TENDER, BMP ####[facility] Yhxabdohtq38[address] [place], [place] [address]Dr. Garima Pulliam EGFR-AF TURKISH >60 Normal >=60 [facility] Comment on above: Performed By: #### B FORGE TENDER, BMP ####[facility] Exzsbgjzlz[address] [place], [place] [address]Dr. Chapisrenu Heraclio EGFR-NON AF TURKISH >60 Normal >=60 [facility] Comment on above: Performed By: #### B FORGE TENDER, BMP ####[facility] Mqjvmupuau[address] [place], [place] [address]Dr. Garima Pulliam Glucose [Mass/Vol] 339 mg/dL Critically high 74-106 [facility] Comment on above: Performed By: #### B FORGE TENDER, BMP ####[facility] Qcapgjajji8[address] [place], [place] [address]Dr. Garima Pulliam Potassium [Moles/Vol] 3.6 mmol/L Normal 3.5-5.1 [facility] Comment on above: Performed By: #### B FORGE TENDER, BMP ####[facility] Lfwilfpyzz[address] [place], [place] [address]Dr. Garima Pulliam Sodium [Moles/Vol] 135 mmol/L Critically low 136-145 [facility] Comment on above: Performed By: #### B FORGE TENDER, BMP ####[facility] Ktnnmfukdv[address] [place], [place] [address]Dr. Garima Pulliam Urea nitrogen [Mass/Vol] 11.0 mg/dL Normal 7.0-18.0 [facility] Comment on above: Performed By: #### B FORGE TENDER, BMP ####[facility] Pvnrymlqac[address] [place], [place] [address]Dr. Garima Pulliam Urea nitrogen/Creatinine [Mass ratio] 13.4 mg/mg Normal [facility] Comment on above: Performed By: #### B FORGE TENDER, BMP ####[facility] Jeezahpzsf[address] [place], [place] [address]Dr. Garima Pulliam US VERONICA DOP LEG BILon 023 US VERONICA DOP LEG BENOIT Normal [facility] BNPon 03-18-2023 Natriuretic peptide B (Bld) [Mass/Vol] 226.0 pg/mL Normal <=900.0 [facility] Comment on above: Performed By: #### B FORGE TENDER, BMP ####[facility] Kvetfzdrtk[address] [place], [place] [address]Dr. Garima Pulliam CBC AUTO DIFFon 03-18-2023 BASO # 0.0 103/ul Normal 0.0-0.1 [facility] Comment on above: Performed By: #### C BC ####[facility] Falcgvcdon[address] [place], [place] [address]Dr. Garima Heraclio Basophils/100 WBC (Bld) 0.2 % Normal 0.2-2.0 [facility] Comment on above: Performed By: #### C BC ####[facility] Zxlinjhyyb[address] [place], [place] [address]Dr. Garima Pulliam EO # 0.3 103/ul Normal 0.0-0.7 [facility] Comment on above: Performed By: #### C BC ####[facility] Oukglvaiot[address] [place], [place] [address]Dr. Garima Heraclio Eosinophils/100 WBC (Bld) 2.5 % Normal 0.9-7.0 [facility] Comment on above: Performed By: #### C BC ####[facility] Pcugkrxszg[address] [place], [place] [address]Dr. Garima Heraclio Erythrocyte distribution width (RBC) [Ratio] 13.2 % Normal 11.0-15.0 [facility] Comment on above: Performed By: #### C BC ####[facility] Jsmftcscaq7834 [place] [address]DrAdalberto Pulliam Hematocrit (Bld) [Volume fraction] 45.8 % Normal 42.0-54.0 [facility] Comment on above: Performed By: #### C BC ####[facility] Ogpaqejnds3490 [place] [address]DrAdalberto Pulliam Hemoglobin (Bld) [Mass/Vol] 15.3 g/dL Normal 14.0-18.0 [facility] Comment on above: Performed By: #### C BC ####[facility] Fvvoelvuhe[address] [place], [place] [address]DrAdalberto Pulliam IG # 0.02 10e3/ul Normal 0.00-0.03 [facility] Comment on above: Performed By: #### C BC ####[facility] Oyywyrjnbk[address] [place], [place] [address]DrAdalberto Pulliam IG % 0.2 % Normal 0.0-0.5 [facility] Comment on above: Performed By: #### C BC ####[facility] Sthcpvegpb[address] [place], [place] [address]DrAdalberto Pulliam LYMPH # 1.8 103/ul Normal 1.2-3.8 [facility] Comment on above: Performed By: #### C BC ####[facility] Sjzoojeuzz[address] [place], [place] [address]DrAdalberto Pulliam Lymphocytes/100 WBC (Bld) 18.3 % Critically low 20.5-60.0 [facility] Comment on above: Performed By: #### C BC ####[facility] Cwmbvdyeon[address] [place], [place] [address]DrAdalberto Pulliam MANUAL DIFF REQ NO Normal [facility] Comment on above: Performed By: #### C BC ####[facility] Ohwgwxateu2827 [place] [address]DrAdalberto Pulliam MCH (RBC) [Entitic mass] 30.5 pg Normal 25.9-34.0 [facility] Comment on above: Performed By: #### C BC ####[facility] [address]xwdxpy[address] [place] [address]DrAdalberto Pulliam MCHC (RBC) [Mass/Vol] 33.4 g/dL Normal 29.9-35.2 [facility] Comment on above: Performed By: #### C BC ####[facility] Comngcvwgj7162 [place] [address]DrAdalberto Pulliam MCV (RBC) [Entitic vol] 91.2 fL Normal 80.0-94.0 [facility] Comment on above: Performed By: #### C BC ####[facility] Axrcxawdpa[address] [place], [place] [address]DrAdalberto Pulliam MONO # 0.8 103/ul Normal 0.3-0.8 [facility] Comment on above: Performed By: #### C BC ####[facility] Rldzuconif0[address] [place], [place] [address]DrAdalberto Pulliam Monocytes/100 WBC (Bld) 7.6 % Normal 1.7-12.0 [facility] Comment on above: Performed By: #### C BC ####[facility] Zekmcoqbnh[address] [place], [place] [address]DrAdalberto Pulliam NEUT # 7.0 103/ul Critically high 1.4-6.5 [facility] Comment on above: Performed By: #### C BC ####[facility] Qllujfutth[address] [place], [place] [address]DrAdalberto Pulliam Neutrophils/100 WBC (Bld) 71.2 % Normal 43.0-75.0 [facility] Comment on above: Performed By: #### C BC ####[facility] Tweboxgtgk[address] [place], [place] [address]DrAdalberto Pulliam Platelet mean volume (Bld) [Entitic vol] 8.9 fL Critically low 9.5-13.5 [facility] Comment on above: Performed By: #### C BC ####[facility] Lapitgajqx[address] [place], [place] [address]DrAdalberto Pulliam PLT 217 103/ul Normal 150-450 [facility] Comment on above: Performed By: #### C BC ####[facility] Cdveqipstv4762 [place] [address]Dr. Garima Heraclio RBC 5.02 106/ul Normal 4.70-6.10 [facility] Comment on above: Performed By: #### C BC ####[facility] Mcpxeckiiu72[address] [place], [place] [address]Dr. Garima Pulliam WBC 9.8 103/ul Normal 4.0-11.0 [facility] Comment on above: Performed By: #### C BC ####[facility] E[address]cqiqbds[address] [place], [place] [address]Dr. Garima Heraclio CRPon 03-18-2023 CRP 0.1 mg/dL Normal <=1.0 [facility] Comment on above: Performed By: #### C RP ####[facility] Furvoemlaj[address] [place], [place] [address]Dr. Garima Heraclio PROF CHEM 8 (BAS METB)on Anion gap [Moles/Vol] 10.4 mmol/L Normal [facility] Comment on above: Performed By: #### B FORGE TENDER, BMP ####[facility] Gelsmmuggb[address] [place], [place] [address]Dr. Garima Heraclio Calcium [Mass/Vol] 8.8 mg/dL Normal 8.5-10.1 [facility] Comment on above: Performed By: #### B FORGE TENDER, BMP ####[facility] Uiaznazzrb[address] [place], [place] [address]Dr. Garima Heraclio Chloride [Moles/Vol] 97 mmol/L Critically low 98-107 [facility] Comment on above: Performed By: #### B FORGE TENDER, BMP ####[facility] [address]htpkssga[address] [place], [place] [address]Dr. Garima Pulliam CO2 [Moles/Vol] 31.2 mmol/L Normal 21.0-32.0 [facility] Comment on above: Performed By: #### B FORGE TENDER, BMP ####[facility] Pcqpjlktqq[address] [place], [place] [address]Dr. Garima Pulliam Creatinine [Mass/Vol] 0.91 mg/dL Normal 0.70-1.30 [facility] Comment on above: Performed By: #### B FORGE TENDER, BMP ####[facility] Oidpuxarqh32[address] [place] [address]Dr. Garima Pulliam EGFR-AF TURKISH >60 Normal >=60 [facility] Comment on above: Performed By: #### B FORGE TENDER, BMP ####[facility] Mxhxjlxtyb4739 [place] [id number]. Garima Pulliam EGFR-NON AF TURKISH >60 Normal >=60 [facility] Comment on above: Performed By: #### B FORGE TENDER, BMP ####[facility] Vbxdczheuv3036 [place] [address]Dr. Garima Pulliam Glucose [Mass/Vol] 315 mg/dL Critically high 74-106 T [facility] Comment on above: Performed By: #### B FORGE TENDER, BMP ####[facility] Qldglblaal6170 [place] [address]Dr. Garima Pulliam Potassium [Moles/Vol] 3.6 mmol/L Normal 3.5-5.1 [facility] Comment on above: Performed By: #### B FORGE TENDER, BMP ####[facility] Wjdgromsmd2418 [place] [address]Dr. Garima Pulliam Sodium [Moles/Vol] 135 mmol/L Critically low 136-145 Th [facility] Comment on above: Performed By: #### B FORGE TENDER, BMP ####[facility] Jrttexwaqa[address] [place] [address]Dr. Garima Pulliam Urea nitrogen [Mass/Vol] 7.0 mg/dL Normal 7.0-18.0 [facility] Comment on above: Performed By: #### B FORGE TENDER, BMP ####[facility] Kovmjcwmzs[address] [place] [address]Dr. Garima Pulliam Urea nitrogen/Creatinine [Mass ratio] 7.7 mg/mg Normal [facility] Comment on above: Performed By: #### B FORGE TENDER, BMP ####[facility] Bvnabkkesf[address] [place] [address]Dr. Garima Pulliam SED RATE WESTERGRENon 2022 SED RATE 8 mm/hr Normal <=20 [facility] Comment on above: Performed By: #### S EDR ####[facility] Z[address]ppsbqoz[address] [place], [place] [address]Dr. Garima Pulliam BNPon 03-16-2023 Natriuretic peptide B (Bld) [Mass/Vol] 241.0 pg/mL Normal <=900.0 [facility] Comment on above: Performed By: #### B FORGE TENDER, BMP, HSTROPN ####[facility] Rfdkaivvlv[address] [place], [place] [address]Dr. Garima Heraclio CBC AUTO DIFFon 03-16-2023 BASO # 0.0 103/ul Normal 0.0-0.1 [facility] Comment on above: Performed By: #### C BC ####[facility] [address]danhvmkxl[address] [place], [place] [address]Dr. Chapisrenu Pulliam Basophils/100 WBC (Bld) 0.2 % Normal 0.2-2.0 [facility] Comment on above: Performed By: #### C BC ####[facility] Dqrbrtugjm[address] [place], [place] [address]Dr. Garima Pulliam EO # 0.2 103/ul Normal 0.0-0.7 [facility] Comment on above: Performed By: #### C BC ####[facility] Uxvthxxyky[address] [place], [place] [address]Dr. Chapisrenu Pulliam Eosinophils/100 WBC (Bld) 2.7 % Normal 0.9-7.0 [facility] Comment on above: Performed By: #### C BC ####[facility] Jxgraurqqb[address] [place], [place] [address]Dr. Garima Pulliam Erythrocyte distribution width (RBC) [Ratio] 13.1 % Normal 11.0-15.0 [facility] Comment on above: Performed By: #### C BC ####[facility] Npdunuipvu[address] [place], [place] [address]Dr. Garima Pulliam Hematocrit (Bld) [Volume fraction] 41.8 % Critically low 42.0-54.0 [facility] Comment on above: Performed By: #### C BC ####[facility] [address]dvtfr[address] [place] [address]Dr. Garima Pulliam Hemoglobin (Bld) [Mass/Vol] 14.0 g/dL Normal 14.0-18.0 [facility] Comment on above: Performed By: #### C BC ####[facility] Ccjkyzawru16[address] [place] [address]Dr. Garima Pulliam IG # 0.03 10e3/ul Normal 0.00-0.03 [facility] Comment on above: Performed By: #### C BC ####[facility] Yozkapntrm7[address] [place] [address]Dr. Garima Pulliam IG % 0.3 % Normal 0.0-0.5 [facility] Comment on above: Performed By: #### C BC ####[facility] Evzxttklhb[address] [place], [place] [address]Dr. Chapisrenu Pulliam LYMPH # 2.1 103/ul Normal 1.2-3.8 [facility] Comment on above: Performed By: #### C BC ####[facility] Kqvgspmsfv[address] [place], [place] [address]Dr. Chapisrenu Pulliam Lymphocytes/100 WBC (Bld) 24.2 % Normal 20.5-60.0 [facility] Comment on above: Performed By: #### C BC ####[facility] Yyrmuuolum[address] [place] [address]Dr. Garima Pulliam MANUAL DIFF REQ NO Normal [facility] Comment on above: Performed By: #### C BC ####[facility] Puzjhgqtfs90[address] [place] [address]Dr. Garima Pulliam MCH (RBC) [Entitic mass] 30.2 pg Normal 25.9-34.0 [facility] Comment on above: Performed By: #### C BC ####[facility] Uzxvqpwtpt14[address] [place] [address]Dr. Garima Pulliam MCHC (RBC) [Mass/Vol] 33.5 g/dL Normal 29.9-35.2 [facility] Comment on above: Performed By: #### C BC ####[facility] Vtgdykysbk[address] [place] [id number]. Garima Pulliam MCV (RBC) [Entitic vol] 90.1 fL Normal 80.0-94.0 [facility] Comment on above: Performed By: #### C BC ####[facility] Lizftmmhbe3693 [place] [id number]. Garima Pulliam MONO # 0.6 103/ul Normal 0.3-0.8 [facility] Comment on above: Performed By: #### C BC ####[facility] Lhiugeznev13[address] [place] [address]Dr. Garima Heraclio Monocytes/100 WBC (Bld) 7.4 % Normal 1.7-12.0 [facility] Comment on above: Performed By: #### C BC ####[facility] Orubqgmhks[address] [place], [place] [address]Dr. Garima Pulliam NEUT # 5.6 103/ul Normal 1.4-6.5 [facility] Comment on above: Performed By: #### C BC ####[facility] Aqqhbatbth[address] [place], [place] [address]Dr. Garima Heraclio Neutrophils/100 WBC (Bld) 65.2 % Normal 43.0-75.0 [facility] Comment on above: Performed By: #### C BC ####[facility] Jptcavmcdo3808 [place] [id number]. Garima Heraclio Platelet mean volume (Bld) [Entitic vol] 8.7 fL Critically low 9.5-13.5 [facility] Comment on above: Performed By: #### C BC ####[facility] Qpxe[address]qqii[address] [place], [place] [address]Dr. Garima Heraclio PLT 195 103/ul Normal 150-450 [facility] Comment on above: Performed By: #### C BC ####[facility] Jvqlijajgl4652 [place] [phone]. Garima Pulliam RBC 4.64 106/ul Critically low 4.70-6.10 [facility] Comment on above: Performed By: #### C BC ####[facility] Jokggtrflj0699 [place] [address]Dr. Garima Pulliam WBC 8.6 103/ul Normal 4.0-11.0 [facility] Comment on above: Performed By: #### C BC ####[facility] Ekwddfasdl028[address] [place] [address]Dr. Garima Pulliam PROF CHEM 8 (BAS METB)on Anion gap [Moles/Vol] 6.7 mmol/L Normal [facility] Comment on above: Performed By: #### B FORGE TENDER, BMP, HSTROPN ####[facility] Tcbyaakxxf67[address] [place] [address]Dr. Garima Pulliam Calcium [Mass/Vol] 8.8 mg/dL Normal 8.5-10.1 [facility] Comment on above: Performed By: #### B FORGE TENDER, BMP, HSTROPN ####[facility] Nxqpedmiwo69[address] [place], [place] [address]Dr. Garima Pulliam Chloride [Moles/Vol] 106 mmol/L Normal 98-107 [facility] Comment on above: Performed By: #### B FORGE TENDER, BMP, HSTROPN ####[facility] Yyuashgmuk[address] [place], [place] [address]Dr. Garima Pulliam CO2 [Moles/Vol] 31.4 mmol/L Normal 21.0-32.0 [facility] Comment on above: Performed By: #### B FORGE TENDER, BMP, HSTROPN ####[facility] Aguirrbyqx04[address] [place], [place] [address]Dr. Garima Pulliam Creatinine [Mass/Vol] 0.75 mg/dL Normal 0.70-1.30 [facility] Comment on above: Performed By: #### B FORGE TENDER, BMP, HSTROPN ####[facility] Yexgcnglnu7371 [place] [address]Dr. Garima Pulliam EGFR-AF TURKISH >60 Normal >=60 [facility] Comment on above: Performed By: #### B FORGE TENDER, BMP, HSTROPN ####[facility] Odoxrwpcug60[address] [place] [address]Dr. Garima Pulliam EGFR-NON AF TURKISH >60 Normal >=60 [facility] Comment on above: Performed By: #### B FORGE TENDER, BMP, HSTROPN ####[facility] Ysjihbvfzr8117 [place] [address]Dr. Garima Pulliam Glucose [Mass/Vol] 161 mg/dL Critically high 74-106 [facility] Comment on above: Performed By: #### B FORGE TENDER, BMP, HSTROPN ####[facility] Gqsiboncal1954 [place] [address]Dr. Garima Pulliam Potassium [Moles/Vol] 4.1 mmol/L Normal 3.5-5.1 [facility] Comment on above: Performed By: #### B FORGE TENDER, BMP, HSTROPN ####[facility] Gtshtxastb9155 [place] [address]Dr. Garima Pulliam Sodium [Moles/Vol] 140 mmol/L Normal 136-145 [facility] Comment on above: Performed By: #### B FORGE TENDER, BMP, HSTROPN ####[facility] Tuxavmbhrg0851 [place] [address]Dr. Garima Pulliam Urea nitrogen [Mass/Vol] 7.0 mg/dL Normal 7.0-18.0 [facility] Comment on above: Performed By: #### B FORGE TENDER, BMP, HSTROPN ####[facility] Viwktsdncx1073 [place] [address]Dr. Garima Pulliam Urea nitrogen/Creatinine [Mass ratio] 9.3 mg/mg Normal [facility] Comment on above: Performed By: #### B FORGE TENDER, BMP, HSTROPN ####[facility] Nwaztktwhf1736 [place] [address]Dr. Garima Pulliam TROPONIN, HIGH SENSITIVITYon 03-16-2023 HSTROP 9.7 pg/mL Normal 4.0-76.1 [facility] Comment on above: Result Comment: CUT- OFF POINTS HAVE BEEN ESTABLISHED BASED ON THE FOURTH UNIVERSAL DEFINITIONS OF MYOCARDIALINFARCTION. THE UPPER REFERENCE LIMIT (URL) OF TROPONIN, DEFINED THE 99TH PERCENTILE OFcTnI DISTRIBUTION IN A REFERENCE POPULATION, HAS BEEN CONFIRMED THE DECISION THRESHOLDFOR MO DIAGNOSIS. Performed By: #### B FORGE TENDER, BMP, HSTROPN ####[facility] Pvckrrjrzp[address] [place] [address]Dr. Garima Pulliam XR CHEST 1 Von 03-16-2023 XR CHEST 1 V Normal [facility] BNPon 03-06-2023 Natriuretic peptide B (Bld) [Mass/Vol] 111.0 pg/mL Normal <=900.0 [facility] Comment on above: Performed By: #### C MP, BNP, CK ####[facility] Ddgegdmmqj6035 [place] [address]Dr. Chapisrenu Pulliam CBC AUTO DIFFon 03-06-2023 BASO # 0.0 103/ul Normal 0.0-0.1 [facility] Comment on above: Performed By: #### C BC ####[facility] Kxmxwjiqqf[address] [place], [place] [address]Dr. Garima Pulliam Basophils/100 WBC (Bld) 0.2 % Normal 0.2-2.0 [facility] Comment on above: Performed By: #### C BC ####[facility] L[address]viugqzfr[address] [place], [place] [address]Dr. Garima Pulliam EO # 0.3 103/ul Normal 0.0-0.7 [facility] Comment on above: Performed By: #### C BC ####[facility] Xzxcuktrxx[address] [place], [place] [address]Dr. Garima Pulliam Eosinophils/100 WBC (Bld) 3.5 % Normal 0.9-7.0 [facility] Comment on above: Performed By: #### C BC ####[facility] Fejjbgbswd12[address] [place], [place] [address]Dr. Garima Pulliam Erythrocyte distribution width (RBC) [Ratio] 13.3 % Normal 11.0-15.0 [facility] Comment on above: Performed By: #### C BC ####[facility] Jfjbldgpaa[address] [place], [place] [address]Dr. Garima Pulliam Hematocrit (Bld) [Volume fraction] 43.7 % Normal 42.0-54.0 [facility] Comment on above: Performed By: #### C BC ####[facility] Siutofcoha74[address] [place] [address]Dr. Garima Pulliam Hemoglobin (Bld) [Mass/Vol] 14.7 g/dL Normal 14.0-18.0 [facility] Comment on above: Performed By: #### C BC ####[facility] Veyguakkpz5330 [place] [address]Dr. Chapisrenu Heraclio IG # 0.03 10e3/ul Normal 0.00-0.03 [facility] Comment on above: Performed By: #### C BC ####[facility] Wqlodafsyn[address] [place], [place] [address]Dr. Garima Pulliam IG % 0.4 % Normal 0.0-0.5 [facility] Comment on above: Performed By: #### C BC ####[facility] Bvoytiubpp[address] [place], [place] [address]Dr. Garima Pulliam LYMPH # 2.0 103/ul Normal 1.2-3.8 [facility] Comment on above: Performed By: #### C BC ####[facility] Bpnyxjhqep[address] [place], [place] [address]DrAdalberto Pulliam Lymphocytes/100 WBC (Bld) 23.7 % Normal 20.5-60.0 [facility] Comment on above: Performed By: #### C BC ####[facility] Nnhbkynskp9[address] [place] [address]Dr. Garima Pulliam MANUAL DIFF REQ NO Normal [facility] Comment on above: Performed By: #### C BC ####[facility] Wncvibyosi1885 [place] [id number] Pulliam MCH (RBC) [Entitic mass] 30.1 pg Normal 25.9-34.0 [facility] Comment on above: Performed By: #### C BC ####[facility] Inknzvadff6940 [place] [id number]. Garima Pulliam MCHC (RBC) [Mass/Vol] 33.6 g/dL Normal 29.9-35.2 [facility] Comment on above: Performed By: #### C BC ####[facility] Ernsmzqmxi5333 [place] [address]Dr. Garima Heraclio MCV (RBC) [Entitic vol] 89.4 fL Normal 80.0-94.0 [facility] Comment on above: Performed By: #### C BC ####[facility] Vqmkrzqbhc0280 [place] [address]Dr. Garima Pulliam MONO # 0.8 103/ul Normal 0.3-0.8 [facility] Comment on above: Performed By: #### C BC ####[facility] Ryfkmxctlt7719 [place] [address]Dr. Garima Pulliam Monocytes/100 WBC (Bld) 9.0 % Normal 1.7-12.0 [facility] Comment on above: Performed By: #### C BC ####[facility] Viwtetfuvi[address] [place], [place] [address]Dr. Garima Pulliam NEUT # 5.4 103/ul Normal 1.4-6.5 [facility] Comment on above: Performed By: #### C BC ####[facility] H[address]rsmabpeb[address] [place], [place] [address]Dr. Garima Pluliam Neutrophils/100 WBC (Bld) 63.2 % Normal 43.0-75.0 [facility] Comment on above: Performed By: #### C BC ####[facility] C[address]biq[address] [place], [place] [address]Dr. Garima Pulliam Platelet mean volume (Bld) [Entitic vol] 9.0 fL Critically low 9.5-13.5 [facility] Comment on above: Performed By: #### C BC ####[facility] [address]cjtaibnvq[address] [place], [place] [address]Dr. Garima Pulliam PLT 218 103/ul Normal 150-450 [facility] Comment on above: Performed By: #### C BC ####[facility] Qppdfxbsog7756 [place] [phone]. Garima Pulliam RBC 4.89 106/ul Normal 4.70-6.10 [facility] Comment on above: Performed By: #### C BC ####[facility] Gbcmunidcf7785 [place] [address]Dr. Garima Pulliam WBC 8.5 103/ul Normal 4.0-11.0 [facility] Comment on above: Performed By: #### C BC ####[facility] Lyzafadcud9919 [place] [address]Dr. Garima Pulliam CPKon 03-06-2023 CK [Catalytic activity/Vol] 191 U/L Normal 39-308 [facility] Comment on above: Performed By: #### C MP, BNP, CK ####[facility] Xkiydvsioc7372 [place] [address]Dr. Garima Pulliam PROF 14(COMP METB)on 023 Albumin [Mass/Vol] 3.6 g/dL Normal 3.4-5.0 [facility] Comment on above: Performed By: #### C MP, BNP, CK ####[facility] Fmnezofviq1079 [place] [address]Dr. Garima Pulliam Albumin/Globulin [Mass ratio] 1.2 {ratio} Normal [facility] Comment on above: Performed By: #### C MP, BNP, CK ####[facility] Mmcwgwchgb3625 [place] [address]Dr. Garima Pulliam ALP [Catalytic activity/Vol] 91 U/L Normal 46-116 [facility] Comment on above: Performed By: #### C MP, BNP, CK ####[facility] Zvclcduhzs8256 [place] [address]Dr. Garima Pulliam ALT [Catalytic activity/Vol] 33 U/L Normal 16-63 [facility] Comment on above: Performed By: #### C MP, BNP, CK ####[facility] Lumypsawlx3273 [place] [address]Dr. Garima Pulliam Anion gap [Moles/Vol] 10.3 mmol/L Normal [facility] Comment on above: Performed By: #### C MP, BNP, CK ####[facility] Hlcomdmlta6320 [place] [address]Dr. Garima Pulliam AST [Catalytic activity/Vol] 17 U/L Normal 15-37 [facility] Comment on above: Performed By: #### C MP, BNP, CK ####[facility] Pddngvfppg6250 [place] [address]Dr. Garima Pulliam Bilirubin [Mass/Vol] 0.4 mg/dL Normal 0.2-1.0 [facility] Comment on above: Performed By: #### C MP, BNP, CK ####[facility] Wtwrlmuwrx2970 [place] [address]Dr. Garima Pulliam Calcium [Mass/Vol] 9.1 mg/dL Normal 8.5-10.1 [facility] Comment on above: Performed By: #### C MP, BNP, CK ####[facility] Egpvkgnsjt3944 [place] [address]Dr. Garima Pulliam Chloride [Moles/Vol] 102 mmol/L Normal 98-107 [facility] Comment on above: Performed By: #### C MP, BNP, CK ####[facility] Bwhwycfbgc1651 [place] [address]Dr. Garima Pulliam CO2 [Moles/Vol] 29.7 mmol/L Normal 21.0-32.0 [facility] Comment on above: Performed By: #### C MP, BNP, CK ####[facility] Njybfuyqrz5104 [place] [address]Dr. Garima Pulliam Creatinine [Mass/Vol] 0.79 mg/dL Normal 0.70-1.30 [facility] Comment on above: Performed By: #### C MP, BNP, CK ####[facility] Vzuaduzbxd6004 [place] [address]Dr. Garima Pulliam EGFR-AF TURKISH >60 Normal >=60 [facility] Comment on above: Performed By: #### C MP, BNP, CK ####[facility] Sastwiohkx7751 [place] [address]Dr. Garima Pulliam EGFR-NON AF TURKISH >60 Normal >=60 [facility] Comment on above: Performed By: #### C MP, BNP, CK ####[facility] Fdpvfabfrv6163 [place] [address]Dr. Garima Pulliam Globulin (S) [Mass/Vol] 3.0 g/dL Normal [facility] Comment on above: Performed By: #### C MP, BNP, CK ####[facility] Wvsxpeiaqc2523 [place] [address]Dr. Garima Pulliam Glucose [Mass/Vol] 202 mg/dL Critically high 74-106 [facility] Comment on above: Performed By: #### C MP, BNP, CK ####[facility] Cklnjfirjj4289 [place] [address]Dr. Garima Pulliam Potassium [Moles/Vol] 4.0 mmol/L Normal 3.5-5.1 [facility] Comment on above: Performed By: #### C MP, BNP, CK ####[facility] Xkgvdfcpxz8991 [place] [address]Dr. Garima Pulliam Protein [Mass/Vol] 6.6 g/dL Normal 6.4-8.2 [facility] Comment on above: Performed By: #### C MP, BNP, CK ####[facility] Btzdcosodd[address] [place], [place] [address]Dr. Garima Pulliam Sodium [Moles/Vol] 138 mmol/L Normal 136-145 [facility] Comment on above: Performed By: #### C MP, BNP, CK ####[facility] Yduceuyecd[address] [place], [place] [address]Dr. Garima Pulliam Urea nitrogen [Mass/Vol] 10.0 mg/dL Normal 7.0-18.0 [facility] Comment on above: Performed By: #### C MP, BNP, CK ####[facility] Jwlmmaxmes0962 [place] [address]Dr. Garima Pulliam Urea nitrogen/Creatinine [Mass ratio] 12.7 mg/mg Normal [facility] Comment on above: Performed By: #### C MP, BNP, CK ####[facility] Grqfpsajmv3606 [place] [address]Dr. Garima Pulliam US VERONICA DOP LEG BILon 023 US VERONICA DOP LEG BENOIT Normal [facility] CBC AUTO DIFFon 01-13-2023 BASO # 0.0 103/ul Normal 0.0-0.1 [facility] Comment on above: Performed By: #### C BC ####[facility] Ohgwdeomsq0409 [place] [id number]. Chapisrenu Pulliam Basophils/100 WBC (Bld) 0.0 % Critically low 0.2-2.0 [facility] Comment on above: Performed By: #### C BC ####[facility] Vndllnukge4414 [place] [address]Dr. Garima Pulliam EO # 0.0 103/ul Normal 0.0-0.7 [facility] Comment on above: Performed By: #### C BC ####[facility] Hasttmrhjb13[address] [place], [place] [address]Dr. Garima Pulliam Eosinophils/100 WBC (Bld) 0.0 % Critically low 0.9-7.0 [facility] Comment on above: Performed By: #### C BC ####[facility] Ljidojmpsa1564 [place] [address]Dr. Garima Pulliam Erythrocyte distribution width (RBC) [Ratio] 13.2 % Normal 11.0-15.0 [facility] Comment on above: Performed By: #### C BC ####[facility] Akjfkxkmsr[address] [place], [place] [address]Dr. Garima Pulliam Hematocrit (Bld) [Volume fraction] 46.7 % Normal 42.0-54.0 [facility] Comment on above: Performed By: #### C BC ####[facility] Zbpbjfmvvj[address] [place], [place] [address]Dr. Garima Pulliam Hemoglobin (Bld) [Mass/Vol] 15.6 g/dL Normal 14.0-18.0 [facility] Comment on above: Performed By: #### C BC ####[facility] Onmjchaalt23[address] [place], [place] [address]Dr. Garima Pulliam IG # 0.01 10e3/ul Normal 0.00-0.03 [facility] Comment on above: Performed By: #### C BC ####[facility] Sppnkdllbt9767 [place] [id number]. Garima Pulliam IG % 0.2 % Normal 0.0-0.5 [facility] Comment on above: Performed By: #### C BC ####[facility] Jfrdwgdlsz6680 [place] [phone]. Garima Pulliam LYMPH # 0.8 103/ul Critically low 1.2-3.8 [facility] Comment on above: Performed By: #### C BC ####[facility] Wsoudlhvzi8072 [place] [phone]. Garima Pulliam Lymphocytes/100 WBC (Bld) 12.7 % Critically low 20.5-60.0 [facility] Comment on above: Performed By: #### C BC ####[facility] Qvdjgwqmjb7454 [place] [address]Dr. Garima Pulliam MANUAL DIFF REQ NO Normal [facility] Comment on above: Performed By: #### C BC ####[facility] Ndrkcufdma9158 [place] [phone]. Garima Pulliam MCH (RBC) [Entitic mass] 30.2 pg Normal 25.9-34.0 [facility] Comment on above: Performed By: #### C BC ####[facility] Zjycvittxk4263 [place] [phone]. Garima Pulliam MCHC (RBC) [Mass/Vol] 33.4 g/dL Normal 29.9-35.2 [facility] Comment on above: Performed By: #### C BC ####[facility] Eupotdhoso7234 [place] [phone]. Garima Pulliam MCV (RBC) [Entitic vol] 90.3 fL Normal 80.0-94.0 [facility] Comment on above: Performed By: #### C BC ####[facility] Annsumogsh1690 [place] [phone]. Garima Heraclio MONO # 0.1 103/ul Critically low 0.3-0.[address] [facility] Comment on above: Performed By: #### C BC ####[facility] Kohuzokpgb6546 [place] [phone]. Garima Pulliam Monocytes/100 WBC (Bld) 0.9 % Critically low 1.7-12.0 [facility] Comment on above: Performed By: #### C BC ####[facility] Lzdnmizwwe6981 [place] [id number]. Garima Pulliam NEUT # 5.6 103/ul Normal 1.4-6.5 [facility] Comment on above: Performed By: #### C BC ####[facility] Wdbqbxbahb5639 [place] [phone]. Garima Pulliam Neutrophils/100 WBC (Bld) 86.2 % Critically high 43.0-75.0 [facility] Comment on above: Performed By: #### C BC ####[facility] Axndxchrlg4863 [place] [address]Dr. Garima Pulliam Platelet mean volume (Bld) [Entitic vol] 9.1 fL Critically low 9.5-13.5 [facility] Comment on above: Performed By: #### C BC ####[facility] [address]wyykosb[address] [place], [place] [address]Dr. Garima Pulliam PLT 169 103/ul Normal 150-450 [facility] Comment on above: Performed By: #### C BC ####[facility] Aaqvnueiez7[address] [place], [place] [address]Dr. Garima Pulliam RBC 5.17 106/ul Normal 4.70-6.10 [facility] Comment on above: Performed By: #### C BC ####[facility] Cinlufuxth[address] [place], [place] [address]Dr. Garima Pulliam WBC 6.5 103/ul Normal 4.0-11.0 [facility] Comment on above: Performed By: #### C BC ####[facility] Dvxtalsqwj[address] [place], [place] [address]Dr. Garima Pulliam D-DIMERon 01-13-2023 D-DIMER 0.41 mg/L FEU Normal <=0.59 [facility] Comment on above: Performed By: #### D DIM ####[facility] Tevlwewrnw0939 [place] [address]Dr. Garima Pulliam D-DIMER COMMENTS SEE BELOW Normal [facility] [...] Performed By: #### D DIM ####[facility] Mcykbltmps[address] [place], [place] [address]Dr. Garima Pulliam PROF 14(COMP METB)on 023 Albumin [Mass/Vol] 3.4 g/dL Normal 3.4-5.0 [facility] Comment on above: Performed By: #### C MP ####[facility] [address]krfftbr[address] [place], [place] [address]Dr. Garima Pulliam Albumin/Globulin [Mass ratio] 1.3 {ratio} Normal [facility] Comment on above: Performed By: #### C MP ####[facility] Xsmjngaquu[address] [place], [place] [address]Dr. Garima Pulliam ALP [Catalytic activity/Vol] 83 U/L Normal 46-116 [facility] [facility] Comment on above: Performed By: #### C MP ####[facility] [address]tlvhwt[address] [place], [place] [address]Dr. Garima Pulliam ALT [Catalytic activity/Vol] 25 U/L Normal 16-63 [facility] Comment on above: Performed By: #### C MP ####[facility] Dbulwuysbt[address] [place] [address]Dr. Garima Pulliam Anion gap [Moles/Vol] 14.5 mmol/L Normal [facility] Comment on above: Performed By: #### C MP ####[facility] Vqfkmeagzr[address] [place], [place] [address]Dr. Garima Pulliam AST [Catalytic activity/Vol] 19 U/L Normal 15-37 [facility] Comment on above: Performed By: #### C MP ####[facility] Zyyztpryoo[address] [place], [place] [address]Dr. Garima Pulliam Bilirubin [Mass/Vol] 0.4 mg/dL Normal 0.2-1.0 [facility] Comment on above: Performed By: #### C MP ####[facility] Kiztfrseje[address] [place], [place] [address]Dr. Garima Pulliam Calcium [Mass/Vol] 8.7 mg/dL Normal 8.5-10.1 [facility] Comment on above: Performed By: #### C MP ####[facility] Qbpbfirvem27[address] [place], [place] [address]Dr. Garima Pulliam Chloride [Moles/Vol] 104 mmol/L Normal 98-107 [facility] Comment on above: Performed By: #### C MP ####[facility] Tsofsnoogo[address] [place], [place] [address]Dr. Garima Pulliam CO2 [Moles/Vol] 24.5 mmol/L Normal 21.0-32.0 [facility] Comment on above: Performed By: #### C MP ####[facility] Rykoqfzlfb8[address] [place], [place] [address]Dr. Garima Pulliam Creatinine [Mass/Vol] 0.70 mg/dL Normal 0.70-1.30 [facility] Comment on above: Performed By: #### C MP ####[facility] Obfikuogvl080[address] [place], [place] [address]Dr. Garima Heraclio EGFR-AF TURKISH >60 Normal >=60 [facility] Comment on above: Performed By: #### C MP ####[facility] Arknivmgai9[address] [place], [place] [address]Dr. Chapisrenu Heraclio EGFR-NON AF TURKISH >60 Normal >=60 [facility] Comment on above: Performed By: #### C MP ####[facility] Carufyfoxa[address] [place], [place] [address]Dr. Chapisrenu Pulliam Globulin (S) [Mass/Vol] 2.6 g/dL Normal [facility] Comment on above: Performed By: #### C MP ####[facility] Jsinyfdyeh[address] [place] [address]Dr. Garima Pulliam Glucose [Mass/Vol] 196 mg/dL Critically high 74-106 [facility] Comment on above: Performed By: #### C MP ####[facility] Ueafdjmoas7904 [place] [address]Dr. Garima Pulliam Potassium [Moles/Vol] 4.0 mmol/L Normal 3.5-5.1 [facility] Comment on above: Performed By: #### C MP ####[facility] Vgngmtlrbf5520 [place] [address]Dr. Garima Pulliam Protein [Mass/Vol] 6.0 g/dL Critically low 6.4-8.2 [facility] Comment on above: Performed By: #### C MP ####[facility] Pbrrwgtfqu[address] [place], [place] [address]Dr. Garima Pulliam Sodium [Moles/Vol] 139 mmol/L Normal 136-145 [facility] Comment on above: Performed By: #### C MP ####[facility] Lpzugknaut40[address] [place], [place] [address]Dr. Garima Pulliam Urea nitrogen [Mass/Vol] 7.0 mg/dL Normal 7.0-18.0 [facility] Comment on above: Performed By: #### C MP ####[facility] Ojdrdcypsn[address] [place], [place] [address]Dr. Garima Heraclio Urea nitrogen/Creatinine [Mass ratio] 10.0 mg/mg Normal [facility] Comment on above: Performed By: #### C MP ####[facility] Owxzqpfvon[address] [place], [place] [address]Dr. Garima Heraclio BNPon 01-12-2023 Natriuretic peptide B (Bld) [Mass/Vol] 141.0 pg/mL Normal <=900.0 [facility] Comment on above: Performed By: #### C MP, BNP, HSTROPN ####[facility] Jrhtweijes616[address] [place], [place] [address]Dr. Garima Heraclio CBC AUTO DIFFon 01-12-2023 BASO # 0.0 103/ul Normal 0.0-0.1 [facility] Comment on above: Performed By: #### C BC ####[facility] Pwetrhpwys[address] [place] [id number]. Garima Heraclio Basophils/100 WBC (Bld) 0.2 % Normal 0.2-2.0 [facility] Comment on above: Performed By: #### C BC ####[facility] Oaskwldxeu30[address] [place] [address]Dr. Garima Heraclio EO # 0.2 103/ul Normal 0.0-0.7 [facility] Comment on above: Performed By: #### C BC ####[facility] Swbryothsa4[address] [place] [address]Dr. Garima Heraclio Eosinophils/100 WBC (Bld) 2.7 % Normal 0.9-7.0 [facility] Comment on above: Performed By: #### C BC ####[facility] Vzgjzefhdn[address] [place], [place] [address]Dr. Garima Pulliam Erythrocyte distribution width (RBC) [Ratio] 13.3 % Normal 11.0-15.0 [facility] Comment on above: Performed By: #### C BC ####[facility] Peemikhvdz74[address] [place], [place] [address]Dr. Garima Pulliam Hematocrit (Bld) [Volume fraction] 42.3 % Normal 42.0-54.0 [facility] Comment on above: Performed By: #### C BC ####[facility] Pddsqywhbi9[address] [place], [place] [address]Dr. Garima Pulliam Hemoglobin (Bld) [Mass/Vol] 14.3 g/dL Normal 14.0-18.0 [facility] Comment on above: Performed By: #### C BC ####[facility] Srusghrovr[address] [place], [place] [address]Dr. Garima Pulliam IG # 0.02 10e3/ul Normal 0.00-0.03 [facility] Comment on above: Performed By: #### C BC ####[facility] Unbgdgyomp35[address] [place] [id number]. Garima Pulliam IG % 0.2 % Normal 0.0-0.5 [facility] Comment on above: Performed By: #### C BC ####[facility] Tpoyhcmdog4[address] [place] [id number]. Garima Pulliam LYMPH # 2.6 103/ul Normal 1.2-3.8 [facility] Comment on above: Performed By: #### C BC ####[facility] Wowundcmcg0531 [place] [id number]. Garima Heraclio Lymphocytes/100 WBC (Bld) 29.6 % Normal 20.5-60.0 [facility] Comment on above: Performed By: #### C BC ####[facility] Hlblakdavw8[address] [place] [address]Dr. Garima Heraclio MANUAL DIFF REQ NO Normal [facility] Comment on above: Performed By: #### C BC ####[facility] Pkgapivmuc[address] [place] [id number]. Garima Pulliam MCH (RBC) [Entitic mass] 30.2 pg Normal 25.9-34.0 [facility] Comment on above: Performed By: #### C BC ####[facility] Lgdutbilra3922 [place] [address]Dr. Garima Pulliam MCHC (RBC) [Mass/Vol] 33.8 g/dL Normal 29.9-35.2 [facility] Comment on above: Performed By: #### C BC ####[facility] Wwcnwpbhou65[address] [place] [id number]. Garima Pulliam MCV (RBC) [Entitic vol] 89.2 fL Normal 80.0-94.0 [facility] Comment on above: Performed By: #### C BC ####[facility] Faaujgpaml[address] [place], [place] [address]Dr. Chapisrenu Pulliam MONO # 0.7 103/ul Normal 0.3-0.8 [facility] Comment on above: Performed By: #### C BC ####[facility] Nixctwflqz5238 [place] [id number]. Garima Pulliam Monocytes/100 WBC (Bld) 8.3 % Normal 1.7-12.0 [facility] Comment on above: Performed By: #### C BC ####[facility] Ykteajujxm4308 [place] [id number]. Garima Pulliam NEUT # 5.1 103/ul Normal 1.4-6.5 [facility] Comment on above: Performed By: #### C BC ####[facility] Xpbgfavywe9064 [place] [id number]. Garima Pulliam Neutrophils/100 WBC (Bld) 59.0 % Normal 43.0-75.0 [facility] Comment on above: Performed By: #### C BC ####[facility] Bkrvtvuynp8737 [place] [address]Dr. Garima Pulliam Platelet mean volume (Bld) [Entitic vol] 8.7 fL Critically low 9.5-13.5 [facility] Comment on above: Performed By: #### C BC ####[facility] Kptlzjsysw6267 [place] [address]Dr. Garima Pulliam PLT 182 103/ul Normal 150-450 [facility] Comment on above: Performed By: #### C BC ####[facility] Twybespxpt4995 [place] [phone]. Garima Pulliam RBC 4.74 106/ul Normal 4.70-6.10 [facility] Comment on above: Performed By: #### C BC ####[facility] Kpouisolry[address] [place], [place] [address]Dr. Garima Pulliam WBC 8.7 103/ul Normal 4.0-11.0 [facility] Comment on above: Performed By: #### C BC ####[facility] Aorymibwun[address] [place], [place] [address]Dr. Garima Pulliam Covid-19 PCR (CVDTB)on 12-25 SARS-CoV-2 (COVID-19) RNA MARIE+probe Ql (Unsp spec) Not detected Normal NOT DETECTED [facility] Comment on above: Result Comment: When diagnostic [...] for this test is supported by the [place] of Health and Human Service's declaration that [...] Performed By: #### C VDTBH ####[facility] Dzqfvfqobi6[address] [place] [address]Dr. Garima Pulliam PROF 14(COMP METB)on 023 Albumin [Mass/Vol] 3.6 g/dL Normal 3.4-5.0 [facility] Comment on above: Performed By: #### C MP, BNP, HSTROPN ####[facility] Ymknopgpyy28[address] [place] [address]Dr. Garima Pulliam Albumin/Globulin [Mass ratio] 1.5 {ratio} Normal [facility] Comment on above: Performed By: #### C MP, BNP, HSTROPN ####[facility] Bwyurepzig27[address] [place] [address]Dr. Garima Pulliam ALP [Catalytic activity/Vol] 79 U/L Normal 46-116 [facility] Comment on above: Performed By: #### C MP, BNP, HSTROPN ####[facility] Zaoygqtwyj8159 [place] [address]Dr. Garima Pulliam ALT [Catalytic activity/Vol] 27 U/L Normal 16-63 [facility] Comment on above: Performed By: #### C MP, BNP, HSTROPN ####[facility] Vyazlrpqoj7357 [place] [address]Dr. Garima Pulliam Anion gap [Moles/Vol] 11.7 mmol/L Normal [facility] Comment on above: Performed By: #### C MP, BNP, HSTROPN ####[facility] Tnbwzphyno3964 [place] [address]Dr. Garima Pulliam AST [Catalytic activity/Vol] 21 U/L Normal 15-37 [facility] Comment on above: Performed By: #### C MP, BNP, HSTROPN ####[facility] Djlvrfmthp3409 [place] [address]Dr. Garima Pulliam Bilirubin [Mass/Vol] 0.3 mg/dL Normal 0.2-1.0 [facility] Comment on above: Performed By: #### C MP, BNP, HSTROPN ####[facility] Zzcrmglfod0093 [place] [address]Dr. Garima Pulliam Calcium [Mass/Vol] 8.9 mg/dL Normal 8.5-10.1 [facility] Comment on above: Performed By: #### C MP, BNP, HSTROPN ####[facility] Aebyfyldlc1144 [place] [address]Dr. Garima Pulliam Chloride [Moles/Vol] 107 mmol/L Normal 98-107 [facility] Comment on above: Performed By: #### C MP, BNP, HSTROPN ####[facility] Weywsjwckq3715 [place] [address]Dr. Garima Pulliam CO2 [Moles/Vol] 26.0 mmol/L Normal 21.0-32.0 [facility] Comment on above: Performed By: #### C MP, BNP, HSTROPN ####[facility] Mypglybxxf5678 [place] [address]Dr. Garima Pulliam Creatinine [Mass/Vol] 0.65 mg/dL Critically low 0.70-1.30 [facility] Comment on above: Performed By: #### C MP, BNP, HSTROPN ####[facility] Zhdjozdhoi47[address] [place] [address]Dr. Yilan Pulliam EGFR-AF TURKISH >60 Normal >=60 [facility] Comment on above: Performed By: #### C MP, BNP, HSTROPN ####[facility] Tawfgspfkk[address] [place] [address]Dr. Garima Pulliam EGFR-NON AF TURKISH >60 Normal >=60 [facility] Comment on above: Performed By: #### C MP, BNP, HSTROPN ####[facility] Oshbqcccuz7[address] [place] [address]Dr. Garima Pulliam Globulin (S) [Mass/Vol] 2.4 g/dL Normal [facility] Comment on above: Performed By: #### C MP, BNP, HSTROPN ####[facility] Wavnteevta[address] [place], [place] [address]Dr. Garima Pulliam Glucose [Mass/Vol] 85 mg/dL Normal 74-106 [facility] Comment on above: Performed By: #### C MP, BNP, HSTROPN ####[facility] Lzlsdqtghl5[address] [place] [address]Dr. Garima Pulliam Potassium [Moles/Vol] 3.7 mmol/L Normal 3.5-5.1 [facility] Comment on above: Performed By: #### C MP, BNP, HSTROPN ####[facility] Nuhtjcdysf1639 [place] [address]Dr. Garima Pulliam Protein [Mass/Vol] 6.0 g/dL Critically low 6.4-8.2 [facility] Comment on above: Performed By: #### C MP, BNP, HSTROPN ####[facility] Dvztjvtivw8778 [place] [address]Dr. Garima Pulliam Sodium [Moles/Vol] 141 mmol/L Normal 136-145 [facility] Comment on above: Performed By: #### C MP, BNP, HSTROPN ####[facility] Kmzqnsrczd5837 [place] [address]Dr. Garima Pulliam Urea nitrogen [Mass/Vol] 5.0 mg/dL Critically low 7.0-18.0 [facility] Comment on above: Performed By: #### C MP, BNP, HSTROPN ####[facility] Oyqocmwdfl37[address] [place] [address]Dr. Garima Pulliam Urea nitrogen/Creatinine [Mass ratio] 7.7 mg/mg Normal [facility] Comment on above: Performed By: #### C MP, BNP, HSTROPN ####[facility] Qgsgcskovv[address] [place] [address]Dr. Garima Pulliam PROTIMEon 01-12-2023 INR Coag (PPP) [Relative time] 1.16 {INR} Normal [facility] Comment on above: Performed By: #### P TT, PT ####[facility] Bgvcrwxzne54[address] [place] [address]Dr. Garima Pulliam INR GUIDELINES SEE BELOW Normal [facility] Comment on above: Result Comment: WESLEY RED INR: 2.0 - 3.0 CONDITIONS NOT LISTED BELOW 2.5 - 3.5 FOR PROSTHETIC HEART VALVE REPLACEMENT 2.5 - 3.5 RECURRENT THROMBOSIS Performed By: #### P TT, PT ####[facility] Dtnlzdzrkw[address] [place], [place] [address]Dr. Garima Pulliam PT Coag (PPP) [Time] 12.2 s Critically high 9.0-11.6 [facility] Comment on above: Performed By: #### P TT, PT ####[facility] Abxygshpvz94[address] [place] [address]Dr. Garima Pulliam PTTon 01-12-2023 aPTT Coag (Bld) [Time] 29.1 s Normal 22.3-36.2 [facility] Comment on above: Performed By: #### P TT, PT ####[facility] Ftqtvluxwr[address] [place], [place] [address]Dr. Garima Pulliam TROPONIN, HIGH SENSITIVITYon 01-12-2023 HSTROP 10.3 pg/mL Normal 4.0-76.1 [facility] Comment on above: Result Comment: CUT- OFF POINTS HAVE BEEN ESTABLISHED BASED ON THE FOURTH UNIVERSAL DEFINITIONS OF MYOCARDIALINFARCTION. THE UPPER REFERENCE LIMIT (URL) OF TROPONIN, DEFINED THE 99TH PERCENTILE OFcTnI DISTRIBUTION IN A REFERENCE POPULATION, HAS BEEN CONFIRMED THE DECISION THRESHOLDFOR [place] DIAGNOSIS. Performed By: #### H STROPN ####[facility] Xssowfopee[address] [place] [address]Dr. Garima Pulliam HSTROP 9.2 pg/mL Normal 4.0-76.1 [facility] Comment on above: Result Comment: CUT- OFF POINTS HAVE BEEN ESTABLISHED BASED ON THE FOURTH UNIVERSAL DEFINITIONS OF MYOCARDIALINFARCTION. THE UPPER REFERENCE LIMIT (URL) OF TROPONIN, DEFINED THE 99TH PERCENTILE OFcTnI DISTRIBUTION IN A REFERENCE POPULATION, HAS BEEN CONFIRMED THE DECISION THRESHOLDFOR [place] DIAGNOSIS. Performed By: #### C MP, BNP, HSTROPN ####[facility] Brijxbmbau[address] [place] [address]Dr. Garima Pulliam XR CHEST 1 Von 01-12-2023 XR CHEST 1 V Normal [facility] XR CHEST 1 Von 01-01-2023 XR CHEST 1 V Normal [facility] CARDIAC NASH 3-6on 3 CK [Catalytic activity/Vol] 196 U/L Normal 39-308 [facility] Comment on above: Performed By: #### C MREP ####[facility] Kvhpplmdsl8194 [place] [address]Dr. Garima Pulliam CK.MB [Mass/Vol] 7.41 ng/mL Critically high <=3.60 [facility] Comment on above: Performed By: #### C MREP ####[facility] Wesfygkyew0134 [place] [address]Dr. Garima Pulliam HSTROP 10.3 pg/mL Normal 4.0-76.1 [facility] Comment on above: Result Comment: CUT- OFF POINTS HAVE BEEN ESTABLISHED BASED ON THE FOURTH UNIVERSAL DEFINITIONS OF MYOCARDIALINFARCTION. THE UPPER REFERENCE LIMIT (URL) OF TROPONIN, DEFINED THE 99TH PERCENTILE OFcTnI DISTRIBUTION IN A REFERENCE POPULATION, HAS BEEN CONFIRMED THE DECISION THRESHOLDFOR [place] DIAGNOSIS. Performed By: #### C MREP ####[facility] Rmxlfvolnn9868 [place] [id number]. Garima Pulliam XR CHEST 1 Von 12-26-2022 XR CHEST 1 V Normal [facility] BNPon 12-25-2022 Natriuretic peptide B (Bld) [Mass/Vol] 98.0 pg/mL Normal <=900.0 [facility] Comment on above: Performed By: #### B MARVIN FRENCH CMADM ####[facility] Dojewerytx5[address] [place] [address]Dr. Garima Pulliam CARDIAC NASH ADMITon 023 CK [Catalytic activity/Vol] 208 U/L Normal 39-308 [facility] Comment on above: Performed By: #### B MARVIN FRENCH CMADM ####[facility] Yompbgnhru9660 [place] [address]Dr. Garima Pulliam CK.MB [Mass/Vol] 7.63 ng/mL Critically high <=3.60 [facility] Comment on above: Performed By: #### B MARVIN FRENCH CMADM ####[facility] Dsyygbajzb[address] [place], [place] [address]Dr. Garima Pulliam HSTROP 8.8 pg/mL Normal 4.0-76.1 [facility] Comment on above: Result Comment: CUT- OFF POINTS HAVE BEEN ESTABLISHED BASED ON THE FOURTH UNIVERSAL DEFINITIONS OF MYOCARDIALINFARCTION. THE UPPER REFERENCE LIMIT (URL) OF TROPONIN, DEFINED THE 99TH PERCENTILE OFcTnI DISTRIBUTION IN A REFERENCE POPULATION, HAS BEEN CONFIRMED THE DECISION THRESHOLDFOR [place] DIAGNOSIS. Performed By: #### B MARVIN FRENCH CMADM ####[facility] Nsdqskwxnb[address] [place], [place] [address]Dr. Garima Pulliam DORIS 83 ng/mL Normal 16-96 [facility] Comment on above: Performed By: #### B MARVIN FRENCH CMADM ####[facility] Hwtmptxjom[address] [place], [place] [address]Dr. Gariam Pulliam CBC AUTO DIFFon 12-25-2022 BASO # 0.0 103/ul Normal 0.0-0.1 [facility] Comment on above: Performed By: #### C BC ####[facility] Spxfsgnhng[address] [place], [place] [address]Dr. Garima Pulliam Basophils/100 WBC (Bld) 0.0 % Critically low 0.2-2.0 [facility] Comment on above: Performed By: #### C BC ####[facility] Mxukvrddrw3514 [place] [address]Dr. Garima Pulliam EO # 0.0 103/ul Normal 0.0-0.7 [facility] Comment on above: Performed By: #### C BC ####[facility] Ycuebtrdes[address] [place], [place] [address]Dr. Garima Pulliam Eosinophils/100 WBC (Bld) 0.7 % Critically low 0.9-7.0 [facility] Comment on above: Performed By: #### C BC ####[facility] Cbxziffcup[address] [place], [place] [address]Dr. Garima Pulliam Erythrocyte distribution width (RBC) [Ratio] 13.4 % Normal 11.0-15.0 [facility] Comment on above: Performed By: #### C BC ####[facility] Pgnxdvtvhj254[address] [place], [place] [address]Dr. Garima Pulliam Hematocrit (Bld) [Volume fraction] 42.9 % Normal 42.0-54.0 [facility] Comment on above: Performed By: #### C BC ####[facility] Mcaxlfjryz878[address] [place], [place] [address]Dr. Garima Pulliam Hemoglobin (Bld) [Mass/Vol] 14.4 g/dL Normal 14.0-18.0 [facility] Comment on above: Performed By: #### C BC ####[facility] Sznoulygoz[address] [place], [place] [address]Dr. Garima Pulliam IG # 0.00 10e3/ul Normal 0.00-0.03 [facility] Comment on above: Performed By: #### C BC ####[facility] Bxzzdjrrgv[address] [place], [place] [address]Dr. Garima Pulliam IG % 0.0 % Normal 0.0-0.5 [facility] Comment on above: Performed By: #### C BC ####[facility] Kqhzmutvbg[address] [place], [place] [address]Dr. Garima Pulliam LYMPH # 2.4 103/ul Normal 1.2-3.8 [facility] Comment on above: Performed By: #### C BC ####[facility] Rrhkwiudku2096 [place] [id number]. Chapisrenu Pulliam Lymphocytes/100 WBC (Bld) 29.2 % Normal 20.5-60.0 [facility] Comment on above: Performed By: #### C BC ####[facility] Tgbzqfnusv4397 [place] [id number]. Garima Pulliam MANUAL DIFF REQ NO Normal [facility] Comment on above: Performed By: #### C BC ####[facility] Lgcgsybquh6234 [place] [id number]. Garima Pulliam MCH (RBC) [Entitic mass] 30.7 pg Normal 25.9-34.0 [facility] Comment on above: Performed By: #### C BC ####[facility] Kmdbeysvon[address] [place], [place] [address]Dr. Garima Pulliam MCHC (RBC) [Mass/Vol] 33.6 g/dL Normal 29.9-35.2 [facility] Comment on above: Performed By: #### C BC ####[facility] M[address]xrmyeqa[address] [place], [place] [address]Dr. Garima Pulliam MCV (RBC) [Entitic vol] 91.5 fL Normal 80.0-94.0 [facility] Comment on above: Performed By: #### C BC ####[facility] Fbfjmfbbiv85[address] [place], [place] [address]Dr. Garima Pulliam MONO # 0.0 103/ul Critically low 0.3-0.[address] [facility] Comment on above: Performed By: #### C BC ####[facility] Gxuocenlya6156 [place] [address]Dr. Garima Pulliam Monocytes/100 WBC (Bld) 8.0 % Normal 1.7-12.0 [facility] Comment on above: Performed By: #### C BC ####[facility] Aojnmfykxn[address] [place], [place] [address]Dr. Garima Pulliam NEUT # 5.1 103/ul Normal 1.4-6.5 [facility] Comment on above: Performed By: #### C BC ####[facility] Urrdlqglbh6[address] [place], [place] [address]Ih. Garima Pulliam Neutrophils/100 WBC (Bld) 62.8 % Normal 43.0-75.0 [facility] Comment on above: Performed By: #### C BC ####[facility] Hbmzmckhuo66[address] [place], [place] [address]Mr. Garima Pulliam Platelet mean volume (Bld) [Entitic vol] 8.6 fL Critically low 9.5-13.5 [facility] Comment on above: Performed By: #### C BC ####[facility] Ttbwbrkbgf4341 [place] [id number]. Garima Pulliam PLT 200 103/ul Normal 150-450 [facility] Comment on above: Performed By: #### C BC ####[facility] Oemibulbgt9821 [place] [id number]. Garima Pulliam RBC 4.69 106/ul Critically low 4.70-6.10 [facility] Comment on above: Performed By: #### C BC ####[facility] Hzptyfzkxy2986 [place], [place] [address]Te. Garima Pulliam WBC 8.2 103/ul Normal 4.0-11.0 [facility] Comment on above: Performed By: #### C BC ####[facility] Znmgwmlcpj6607 [place], [place] [address]Mq. Garima Pulliam [facility])on SARS-CoV-2 (COVID-19) RNA MARIE+probe Ql (Unsp spec) Not detected Normal NOT DETECTED [facility] Comment on above: Result Comment: When diagnostic [...] for this test is supported by the [place] of Health and Human Service's declaration that [...] Performed By: #### C VDTBH ####[facility] Neftlnnorz[address] [place], [place] [address]Dr. Garima Pulliam INFLUENZA A AND B AGon 12-25 INFLUANEGH SEE BELOW Normal [facility] Comment on above: Result Comment: Nega tive for Flu A protein angiten. Infection due to Flu A cannot be ruled out. Flu A angiten in the sample may be below the detection limit of the test. Performed By: #### I NFLUAB ####[facility] W[address] [place], [place] [address]Dr. Garima Pulliam INFLUBNEGH SEE BELOW Normal [facility] Comment on above: Result Comment: Nega tive for Flu B protein antigen. Infection due to Flu B cannot be ruled out. Flu B antigen in the sample may be below the detection limit of the test. Performed By: #### I NFLUAB ####[facility] [address]stth[address]jn[address] [place], [place] [address]Dr. Garima Pulliam INFLUENZA A AG Negative Normal NEGATIVE SEE COMMENT [facility] Comment on above: Performed By: #### I NFLUAB ####[facility] [address]ss[address] [place], [place] [address]Dr. renu [facility] INFLUENZA B AG Negative Normal NEGATIVE SEE COMMENT [facility] Comment on above: Performed By: #### I NFLUAB ####[facility] Iyq[address]im[address] [place], [place] [address]Dr. Garima Pulliam PROF CHEM 8 (BAS METB)on Anion gap [Moles/Vol] 11.1 mmol/L Normal [facility] Comment on above: Performed By: #### B FORGE TENDER, BMP, CMADM ####[facility] Qbyyq[address] [place], [place] [address]Dr. Garima Pulliam Calcium [Mass/Vol] 8.5 mg/dL Normal 8.5-10.1 [facility] Comment on above: Performed By: #### B FORGE TENDER, MARVIN, CMADM ####[facility] [address]vb[address] [place] [id number]. Garima Pulliam Chloride [Moles/Vol] 106 mmol/L Normal 98-107 [facility] Comment on above: Performed By: #### B FORGE TENDER, BMP, CMADM ####[facility] [address]fl[address] [place] [address]Dr. Garima Pulliam CO2 [Moles/Vol] 27.4 mmol/L Normal 21.0-32.0 [facility] Comment on above: Performed By: #### B FORGE TENDER, MARVIN, CMADM ####[facility] Ulrkpufnbj[address] [place] [address]Dr. Garima Pulliam Creatinine [Mass/Vol] 0.65 mg/dL Critically low 0.70-1.30 [facility] Comment on above: Performed By: #### B FORGE TENDER, MARVIN, CMADM ####[facility] [address]laevdos[address] [place] [address]Dr. Garima Pulliam EGFR-AF TURKISH >60 Normal >=60 [facility] Comment on above: Performed By: #### B FORGE TENDER, BMP, CMADM ####[facility] [address]prpoqfnrx[address] [place] [address]Dr. Garima Pulliam EGFR-NON AF TURKISH >60 Normal >=60 [facility] Comment on above: Performed By: #### B FORGE TENDER, BMP, CMADM ####[facility] Frkbjsctul6355 [place] [address]Dr. Garima Pulliam Glucose [Mass/Vol] 140 mg/dL Critically high 74-106 [facility] Comment on above: Performed By: #### B FORGE TENDER, BMP, CMADM ####[facility] [address]jgbewgm[address] [place] [address]Dr. Garima Pulliam Potassium [Moles/Vol] 3.5 mmol/L Normal 3.5-5.1 [facility] Comment on above: Performed By: #### B FORGE TENDER, BMP, CMADM ####[facility] Etxragzwka[address] [place] [address]Dr. Garima Pulliam Sodium [Moles/Vol] 141 mmol/L Normal 136-145 [facility] Comment on above: Performed By: #### B FORGE TENDER, BMP, CMADM ####[facility] Mmtohcfhsn8[address] [place] [address]Dr. Garima Pulliam Urea nitrogen [Mass/Vol] 8.0 mg/dL Normal 7.0-18.0 [facility] Comment on above: Performed By: #### B FORGE TENDER, BMP, CMADM ####[facility] Blhpqmcnea[address] [place] [address]Dr. Garima Pulliam Urea nitrogen/Creatinine [Mass ratio] 12.3 mg/mg Normal [facility] Comment on above: Performed By: #### B FORGE TENDER, BMP, CMADM ####[facility] Aayingodnk[address] [place], [place] [address]Dr. Garima Pulliam CARDIAC NASH ADMITon 023 CK [Catalytic activity/Vol] 165 U/L Normal 39-308 [facility] Comment on above: Performed By: #### B DAVID, CMADM ####[facility] Jfuiuxhall[address] [place], [place] [address]Dr. Garima Pulliam CK.MB [Mass/Vol] 6.48 ng/mL Critically high <=3.60 [facility] Comment on above: Performed By: #### B MP, CMADM ####[facility] Valhbnfdri[address] [place], [place] [address]Dr. Garima Pulliam HSTROP 11.7 pg/mL Normal 4.0-76.1 [facility] Comment on above: Result Comment: CUT- OFF POINTS HAVE BEEN ESTABLISHED BASED ON THE FOURTH UNIVERSAL DEFINITIONS OF MYOCARDIALINFARCTION. THE UPPER REFERENCE LIMIT (URL) OF TROPONIN, DEFINED THE 99TH PERCENTILE OFcTnI DISTRIBUTION IN A REFERENCE POPULATION, HAS BEEN CONFIRMED THE DECISION THRESHOLDFOR MO DIAGNOSIS. Performed By: #### B MP, CMADM ####[facility] Kulsylseta[address] [place], [place] [address]Dr. Garima Pulliam DORIS 83 ng/mL Normal 16-96 [facility] Comment on above: Performed By: #### B MP, CMADM ####[facility] Fsergysmpg[address] [place] [address]Dr. Garima Pulliam CBC AUTO DIFFon 12-10-2022 BASO # 0.0 103/ul Normal 0.0-0.1 [facility] Comment on above: Performed By: #### C BC ####[facility] Okwcyefefm[address] [place], [place] [address]Dr. Garima Heraclio Basophils/100 WBC (Bld) 0.3 % Normal 0.2-2.0 [facility] Comment on above: Performed By: #### C BC ####[facility] Cpvjrpuimm[address] [place], [place] [address]Dr. Garima Pulliam EO # 0.1 103/ul Normal 0.0-0.7 [facility] Comment on above: Performed By: #### C BC ####[facility] Edtbqvrwrl[address] [place], [place] [address]Dr. Garima Pulliam Eosinophils/100 WBC (Bld) 0.4 % Critically low 0.9-7.0 [facility] Comment on above: Performed By: #### C BC ####[facility] Ahvnzlfguu[address] [place], [place] [address]Dr. Garima Pulliam Erythrocyte distribution width (RBC) [Ratio] 13.2 % Normal 11.0-15.0 [facility] Comment on above: Performed By: #### C BC ####[facility] Zgqrvedmtu[address] [place], [place] [address]Dr. Garima Pulliam Hematocrit (Bld) [Volume fraction] 42.4 % Normal 42.0-54.0 [facility] Comment on above: Performed By: #### C BC ####[facility] Xbeuiuwcdn[address] [place], [place] [address]Dr. Garima Pulliam Hemoglobin (Bld) [Mass/Vol] 14.4 g/dL Normal 14.0-18.0 [facility] Comment on above: Performed By: #### C BC ####[facility] [address]quhdp[address] [place] [id number]. Garima Heraclio IG # 0.05 10e3/ul Critically high 0.00-0.03 [facility] Comment on above: Performed By: #### C BC ####[facility] [address]ocx[address]xfan[address] [place] [address]Dr. Garima Heraclio IG % 0.4 % Normal 0.0-0.5 [facility] Comment on above: Performed By: #### C BC ####[facility] Rxcuznxhty[address] [place], [place] [address]Dr. Garima Pulliam LYMPH # 0.8 103/ul Critically low 1.2-3.[address] [facility] Comment on above: Performed By: #### C BC ####[facility] Xniwwnlbqq[address] [place], [place] [address]Dr. Chapisrenu Pulliam Lymphocytes/100 WBC (Bld) 6.5 % Critically low 20.5-60.0 [facility] Comment on above: Performed By: #### C BC ####[facility] Davlkluxei65[address] [place], [place] [address]Dr. Chapisrenu Pulliam MANUAL DIFF REQ NO Normal [facility] Comment on above: Performed By: #### C BC ####[facility] Bfxhxqtmig[address] [place], [place] [address]DrAdalberto Garima Pulliam MCH (RBC) [Entitic mass] 30.5 pg Normal 25.9-34.0 [facility] Comment on above: Performed By: #### C BC ####[facility] X[address]qbvbb[address] [place], [place] [address]DrAdalberto Garima Heraclio MCHC (RBC) [Mass/Vol] 34.0 g/dL Normal 29.9-35.2 [facility] Comment on above: Performed By: #### C BC ####[facility] [address]ak[address] [place], [place] [address]DrAdalberto Garima Heraclio MCV (RBC) [Entitic vol] 89.8 fL Normal 80.0-94.0 [facility] Comment on above: Performed By: #### C BC ####[facility] [address]ms[address]chz[address] [place], [place] [address]Dr. Garima Pulliam MONO # 0.2 103/ul Critically low 0.3-0.[address] [facility] Comment on above: Performed By: #### C BC ####[facility] [address]om[address]vgxkmg[address] [place] [id number]. Garima Pulliam Monocytes/100 WBC (Bld) 2.0 % Normal 1.7-12.0 [facility] Comment on above: Performed By: #### C BC ####[facility] Ugiclivuvf[address] [place] [address]Dr. Chapisrenu Heraclio NEUT # 10.5 103/ul Critically high 1.4-6.5 [facility] Comment on above: Performed By: #### C BC ####[facility] Iuesdxxvlf[address] [place] [address]Dr. Garima Pulliam Neutrophils/100 WBC (Bld) 90.4 % Critically high 43.0-75.0 [facility] Comment on above: Performed By: #### C BC ####[facility] T[address]auh[address] [place] [address]Dr. Garima Pulliam Platelet mean volume (Bld) [Entitic vol] 9.4 fL Critically low 9.5-13.5 [facility] Comment on above: Performed By: #### C BC ####[facility] [address]vwo[address]aw[address] [place] [address]Dr. Garima Pulliam PLT 198 103/ul Normal 150-450 [facility] Comment on above: Performed By: #### C BC ####[facility] K[address]qlzmtz[address] [place] [address]Dr. Garima Pulliam RBC 4.72 106/ul Normal 4.70-6.10 [facility] Comment on above: Performed By: #### C BC ####[facility] [address]qcm[address] [place] [phone]. Garima Pulliam WBC 11.6 103/ul Critically high 4.0-11.0 [facility] Comment on above: Performed By: #### C BC ####[facility] [address]yt[address]yvv[address] [place] [address]DrAdalberto Pulliam PROF CHEM 8 (BAS METB)on Anion gap [Moles/Vol] 11.3 mmol/L Normal [facility] Comment on above: Performed By: #### B NANCY HERNANDEZ ####[facility] [address]azanfxj[address] [place] [address]Dr. Garima Pulliam Calcium [Mass/Vol] 8.9 mg/dL Normal 8.5-10.1 [facility] Comment on above: Performed By: #### B NANCY HERNANDEZ ####[facility] [address]lmtjpbwmq64[address] [place] [address]Dr. Garima Pulliam Chloride [Moles/Vol] 103 mmol/L Normal 98-107 [facility] Comment on above: Performed By: #### B NANCY HERNANDEZ ####[facility] [address]opykqhumo[address] [place], [place] [address]Dr. Garima Pulliam CO2 [Moles/Vol] 28.2 mmol/L Normal 21.0-32.0 [facility] Comment on above: Performed By: #### NANCY Larkin MP ####[facility] Hhpmwjealq[address] [place] [address]Dr. Chapisrenu Pulliam Creatinine [Mass/Vol] 0.60 mg/dL Critically low 0.70-1.30 [facility] Comment on above: Performed By: #### NANYC Larkin MP ####[facility] [address]swbmp[address] [place] [address]Dr. Garima Pulliam EGFR-AF TURKISH >60 Normal >=60 [facility] Comment on above: Performed By: #### NANCY Larkin MP ####[facility] S[address]axlbit[address] [place] [address]Dr. Garima Pulliam EGFR-NON AF TURKISH >60 Normal >=60 [facility] Comment on above: Performed By: #### NANCY Larkin MP ####[facility] [address]tx[address]ssv[address] [place], [place] [address]Dr. Garima Pulliam Glucose [Mass/Vol] 166 mg/dL Critically high 74-106 [facility] Comment on above: Performed By: #### B MP, CMADM ####[facility] Zlhwdofgiu[address] [place] [address]Dr. Garima Pulliam Potassium [Moles/Vol] 3.5 mmol/L Normal 3.5-5.1 [facility] Comment on above: Performed By: #### B MP, CMADM ####[facility] E[address]qvymvqq[address] [place] [address]Dr. Garima Pulliam Sodium [Moles/Vol] 139 mmol/L Normal 136-145 [facility] Comment on above: Performed By: #### B DAVID, CMADM ####[facility] Sfgtxliing[address] [place] [address]Dr. Garima Heraclio Urea nitrogen [Mass/Vol] 9.0 mg/dL Normal 7.0-18.0 [facility] Comment on above: Performed By: #### B DAVID, NANCY ####[facility] Magvmjlgtg[address] [place], [place] [address]Dr. Garima Heraclio Urea nitrogen/Creatinine [Mass ratio] 15.0 mg/mg Normal [facility] Comment on above: Performed By: #### B DAVID, CMAANA ROSA ####[facility] [address] [place], [place] [address]Dr. Garima Pulliam XR CHEST 1 Von 12-10-2022 XR CHEST 1 V Normal [facility] BNPon 11-27-2022 Natriuretic peptide B (Bld) [Mass/Vol] 95.0 pg/mL Normal <=900.0 [facility] Comment on above: Performed By: #### C MP, HSTROPN, BNP ####[facility] [address]scwhqlwov[address] [place], [place] [address]Dr. Garima Heraclio CBC AUTO DIFFon 11-27-2022 BASO # 0.0 103/ul Normal 0.0-0.1 [facility] Comment on above: Performed By: #### C BC ####[facility] C[address]usawl[address] [place], [place] [address]Dr. Garima Heraclio Basophils/100 WBC (Bld) 0.2 % Normal 0.2-2.0 [facility] Comment on above: Performed By: #### C BC ####[facility] [address]yjshpc[address] [place] [id number]. Garima Pulliam EO # 0.2 103/ul Normal 0.0-0.7 [facility] Comment on above: Performed By: #### C BC ####[facility] Axnubyywmb94[address] [place] [phone]. Garima Pulliam Eosinophils/100 WBC (Bld) 2.0 % Normal 0.9-7.0 [facility] Comment on above: Performed By: #### C BC ####[facility] [address]jstglto[address] [place], [place] [address]Dr. Garima Pulliam Erythrocyte distribution width (RBC) [Ratio] 13.2 % Normal 11.0-15.0 [facility] Comment on above: Performed By: #### C BC ####[facility] W[address]skyzgf[address] [place], [place] [address]Dr. Garima Pulliam Hematocrit (Bld) [Volume fraction] 42.4 % Normal 42.0-54.0 [facility] Comment on above: Performed By: #### C BC ####[facility] [address]azithafab[address] [place], [place] [address]Dr. Garima Pulliam Hemoglobin (Bld) [Mass/Vol] 14.4 g/dL Normal 14.0-18.0 [facility] Comment on above: Performed By: #### C BC ####[facility] Rqffjahqcy[address] [place], [place] [address]Dr. Garima Pulliam IG # 0.04 10e3/ul Critically high 0.00-0.03 [facility] Comment on above: Performed By: #### C BC ####[facility] Jtu[address]dxvqx[address] [place], [place] [address]Dr. Garima Pulliam IG % 0.4 % Normal 0.0-0.5 [facility] Comment on above: Performed By: #### C BC ####[facility] Oxysluongl[address] [place], [place] [address]Dr. Garima Pulliam LYMPH # 2.2 103/ul Normal 1.2-3.8 [facility] Comment on above: Performed By: #### C BC ####[facility] [address]zjvrwni[address] [place] [id number]. Garima Pulliam Lymphocytes/100 WBC (Bld) 21.5 % Normal 20.5-60.0 [facility] Comment on above: Performed By: #### C BC ####[facility] [address]ceayknmmd[address] [place] [phone]. Garima Heraclio MANUAL DIFF REQ NO Normal [facility] Comment on above: Performed By: #### C BC ####[facility] [address]qrxtrabuk[address] [place] [phone]. Garima Heraclio MCH (RBC) [Entitic mass] 30.4 pg Normal 25.9-34.0 [facility] Comment on above: Performed By: #### C BC ####[facility] Cfbzftfqrf65[address] [place] [address]Dr. Garima Heraclio MCHC (RBC) [Mass/Vol] 34.0 g/dL Normal 29.9-35.2 [facility] Comment on above: Performed By: #### C BC ####[facility] Tvtwqedhor10[address] [place] [phone]. Garima Pulliam MCV (RBC) [Entitic vol] 89.6 fL Normal 80.0-94.0 [facility] Comment on above: Performed By: #### C BC ####[facility] Gcjdralpao47[address] [place] [phone]. Garima Pulliam MONO # 0.8 103/ul Normal 0.3-0.8 [facility] Comment on above: Performed By: #### C BC ####[facility] Agcrcbdfgh72[address] [place] [phone]. Chapisrenu Pulliam Monocytes/100 WBC (Bld) 7.7 % Normal 1.7-12.0 [facility] Comment on above: Performed By: #### C BC ####[facility] X[address]grxkisr[address] [place], [place] [address]Dr. Garima Pulliam NEUT # 7.0 103/ul Critically high 1.4-6.5 [facility] Comment on above: Performed By: #### C BC ####[facility] Opddpmciod8[address] [place] [id number]. Garima Pulliam Neutrophils/100 WBC (Bld) 68.2 % Normal 43.0-75.0 [facility] Comment on above: Performed By: #### C BC ####[facility] Pzeysevdog24[address] [place] [phone]. Chapisrenu Pulliam Platelet mean volume (Bld) [Entitic vol] 8.9 fL Critically low 9.5-13.5 [facility] Comment on above: Performed By: #### C BC ####[facility] Zmcrvlzyiw[address] [place] [address]Dr. Garima Pulliam PLT 222 103/ul Normal 150-450 [facility] Comment on above: Performed By: #### C BC ####[facility] Wptlmflxmr9479 [place] [address]Dr. Garima Pulliam RBC 4.73 106/ul Normal 4.70-6.10 [facility] Comment on above: Performed By: #### C BC ####[facility] Rijbdtayuy[address] [place] [address]Dr. Garima Pulliam WBC 10.3 103/ul Normal 4.0-11.0 [facility] Comment on above: Performed By: #### C BC ####[facility] Erxkyomszo[address] [place] [address]Dr. Garima Pulliam PROF 14(COMP METB)on 023 Albumin [Mass/Vol] 3.7 g/dL Normal 3.4-5.0 [facility] Comment on above: Performed By: #### C MP, HSTROPN, BNP ####[facility] Nqayyfyjcg6[address] [place] [address]Dr. Chapisrenu Pulliam Albumin/Globulin [Mass ratio] 1.5 {ratio} Normal [facility] Comment on above: Performed By: #### C MP, HSTROPN, BNP ####[facility] Mcbbpqlvxl44[address] [place] [address]Dr. Garima Pulliam ALP [Catalytic activity/Vol] 79 U/L Normal 46-116 [facility] Comment on above: Performed By: #### C MP, HSTROPN, BNP ####[facility] Qnimaiccbq[address]01 [place] [address]Dr. Garima Pulliam ALT [Catalytic activity/Vol] 32 U/L Normal 16-63 [facility] Comment on above: Performed By: #### C MP, HSTROPN, BNP ####[facility] Dhnlrfchgt19[address] [place] [address]Dr. Garima Pulliam Anion gap [Moles/Vol] 9.5 mmol/L Normal [facility] Comment on above: Performed By: #### C MP, HSTROPN, BNP ####[facility] [address]erlavkpe[address] [place], [place] [address]Dr. Garima Pulliam AST [Catalytic activity/Vol] 25 U/L Normal 15-37 [facility] Comment on above: Performed By: #### C MP, HSTROPN, BNP ####[facility] [address]fwnhtjkcb[address] [place], [place] [address]Dr. Chapislan Pulliam Bilirubin [Mass/Vol] 0.4 mg/dL Normal 0.2-1.0 [facility] Comment on above: Performed By: #### C MP, HSTROPN, BNP ####[facility] [address]vmpwoflfm[address] [place], [place] [address]Dr. Garima Pulliam Calcium [Mass/Vol] 8.9 mg/dL Normal 8.5-10.1 [facility] Comment on above: Performed By: #### C MP, HSTROPN, BNP ####[facility] T[address]kmxvs[address] [place], [place] [address]Dr. Chapislan Pulliam Chloride [Moles/Vol] 103 mmol/L Normal 98-107 [facility] Comment on above: Performed By: #### C MP, HSTROPN, BNP ####[facility] Sfbscvyaos[address] [place], [place] [address]Dr. Yilan Pulliam CO2 [Moles/Vol] 28.6 mmol/L Normal 21.0-32.0 [facility] Comment on above: Performed By: #### C MP, HSTROPN, BNP ####[facility] [address]uybr[address] [place] [address]Dr. Garima Pulliam Creatinine [Mass/Vol] 0.72 mg/dL Normal 0.70-1.30 [facility] Comment on above: Performed By: #### C MP, HSTROPN, BNP ####[facility] [address]kzwkeuo[address] [place] [address]Dr. Garima Pulliam EGFR-AF TURKISH >60 Normal >=60 [facility] Comment on above: Performed By: #### C MP, HSTROPN, BNP ####[facility] Fwcjcpbmks4237 [place] [address]Dr. Garima Pulliam EGFR-NON AF TURKISH >60 Normal >=60 [facility] Comment on above: Performed By: #### C MP, HSTROPN, BNP ####[facility] Clvnkqhcrk5075 [place] [address]Dr. Garima Pulliam Globulin (S) [Mass/Vol] 2.5 g/dL Normal [facility] Comment on above: Performed By: #### C MP, HSTROPN, BNP ####[facility] [address]zsdj[address]bz[address] [place], [place] [address]Dr. Garima Pulliam Glucose [Mass/Vol] 114 mg/dL Critically high 74-106 [facility] Comment on above: Performed By: #### C MP, HSTROPN, BNP ####[facility] [address]cehcxzfng[address] [place], [place] [address]Dr. Garima Pulliam Potassium [Moles/Vol] 4.1 mmol/L Normal 3.5-5.1 [facility] Comment on above: Performed By: #### C MP, HSTROPN, BNP ####[facility] [address]ipaupm[address] [place], [place] [address]Dr. Garima Pulliam Protein [Mass/Vol] 6.2 g/dL Critically low 6.4-8.2 [facility] Comment on above: Performed By: #### C MP, HSTROPN, BNP ####[facility] S[address]uthzqrh[address] [place], [place] [address]Dr. Yilan Pulliam Sodium [Moles/Vol] 137 mmol/L Normal 136-145 [facility] Comment on above: Performed By: #### C MP, HSTROPN, BNP ####[facility] Ozgzyjssdw[address] [place] [address]Dr. Garima Pulliam Urea nitrogen [Mass/Vol] 13.0 mg/dL Normal 7.0-18.0 [facility] Comment on above: Performed By: #### C MP, HSTROPN, BNP ####[facility] Qhqekvpjmg5[address] [place] [address]Dr. Garima Pulliam Urea nitrogen/Creatinine [Mass ratio] 18.1 mg/mg Normal [facility] Comment on above: Performed By: #### C MP, HSTROPN, BNP ####[facility] [address]ufprvfv[address] [place], [place] [address]Dr. Garima Pulliam TROPONIN, HIGH SENSITIVITYon 11-27-2022 HSTROP 11.8 pg/mL Normal 4.0-76.1 [facility] Comment on above: Result Comment: CUT- OFF POINTS HAVE BEEN ESTABLISHED BASED ON THE FOURTH UNIVERSAL DEFINITIONS OF MYOCARDIALINFARCTION. THE UPPER REFERENCE LIMIT (URL) OF TROPONIN, DEFINED THE 99TH PERCENTILE OFcTnI DISTRIBUTION IN A REFERENCE POPULATION, HAS BEEN CONFIRMED THE DECISION THRESHOLDFOR MO DIAGNOSIS. Performed By: #### C MP, HSTROPN, BNP ####[facility] [address]vo[address] [place], [place] [address]Dr. Garima Pulliam XR CHEST 1 Von 11-27-2022 XR CHEST 1 V Normal [facility] BNPon 11-20-2022 Natriuretic peptide B (Bld) [Mass/Vol] 73.0 pg/mL Normal <=900.0 [facility] Comment on above: Performed By: #### B MP, HSTROPN, BNP ####[facility] [address] [place], [place] [address]Dr. Garima Pulliam CBC AUTO DIFFon 11-20-2022 BASO # 0.0 103/ul Normal 0.0-0.1 [facility] Comment on above: Performed By: #### C BC ####[facility] [address]iiuofz[address] [place] [id number]. Garima Pulliam Basophils/100 WBC (Bld) 0.3 % Normal 0.2-2.0 [facility] Comment on above: Performed By: #### C BC ####[facility] P[address]yebwyfq[address] [place] [id number]. Garima Pulliam EO # 0.2 103/ul Normal 0.0-0.7 [facility] Comment on above: Performed By: #### C BC ####[facility] Lsrwzwdfcv36[address] [place] [address]Dr. Garima Pulliam Eosinophils/100 WBC (Bld) 2.1 % Normal 0.9-7.0 [facility] Comment on above: Performed By: #### C BC ####[facility] Uuryrsqegr[address] [place], [place] [address]Dr. Garima Pulliam Erythrocyte distribution width (RBC) [Ratio] 13.2 % Normal 11.0-15.0 [facility] Comment on above: Performed By: #### C BC ####[facility] Ziuivjhvbg[address] [place], [place] [address]Dr. Garima Pulliam Hematocrit (Bld) [Volume fraction] 43.4 % Normal 42.0-54.0 [facility] Comment on above: Performed By: #### C BC ####[facility] [address] [place], [place] [address]Dr. Garima Pulliam Hemoglobin (Bld) [Mass/Vol] 14.6 g/dL Normal 14.0-18.0 [facility] Comment on above: Performed By: #### C BC ####[facility] Tmdqcwlrue[address] [place] [id number]. Garima Pulliam IG # 0.02 10e3/ul Normal 0.00-0.03 [facility] Comment on above: Performed By: #### C BC ####[facility] Tdbbsvwuyn[address] [place] [address]Dr. Garima Pulliam IG % 0.2 % Normal 0.0-0.5 [facility] Comment on above: Performed By: #### C BC ####[facility] Uqzqkaxlhi3[address] [place] [id number]. Garima Heraclio LYMPH # 2.1 103/ul Normal 1.2-3.8 [facility] Comment on above: Performed By: #### C BC ####[facility] Cqroakolgi7705 [place] [id number]. Garima Heraclio Lymphocytes/100 WBC (Bld) 19.2 % Critically low 20.5-60.0 [facility] Comment on above: Performed By: #### C BC ####[facility] Sdrdgnwmrm7339 [place] [id number]. Chapisrenu Pulliam MANUAL DIFF REQ NO Normal [facility] Comment on above: Performed By: #### C BC ####[facility] Ufmfauufnb7937 [place] [id number]. Garima Heraclio MCH (RBC) [Entitic mass] 30.4 pg Normal 25.9-34.0 [facility] Comment on above: Performed By: #### C BC ####[facility] Qnkmwgjdvg0790 [place] [address]Dr. Garima Pulliam MCHC (RBC) [Mass/Vol] 33.6 g/dL Normal 29.9-35.2 [facility] Comment on above: Performed By: #### C BC ####[facility] Qonwjfdavi8188 [place] [id number]. Garima Heraclio MCV (RBC) [Entitic vol] 90.4 fL Normal 80.0-94.0 [facility] Comment on above: Performed By: #### C BC ####[facility] Oocobapaoy[address] [place] [id number]. Garima Heraclio MONO # 0.6 103/ul Normal 0.3-0.8 [facility] Comment on above: Performed By: #### C BC ####[facility] Rnfsolkimq0314 [place] [address]Dr. Garima Heraclio Monocytes/100 WBC (Bld) 5.8 % Normal 1.7-12.0 [facility] Comment on above: Performed By: #### C BC ####[facility] Xaxf[address]bfqn24[address] [place], [place] [address]Wp. Garima Pulliam NEUT # 7.8 103/ul Critically high 1.4-6.5 [facility] Comment on above: Performed By: #### C BC ####[facility] Dlfrhinxlm6384 [place] [id number]. Garima Pulliam Neutrophils/100 WBC (Bld) 72.4 % Normal 43.0-75.0 [facility] Comment on above: Performed By: #### C BC ####[facility] Uhbgmsjlhw7151 [place] [id number]. Garima Pulliam Platelet mean volume (Bld) [Entitic vol] 8.7 fL Critically low 9.5-13.5 [facility] Comment on above: Performed By: #### C BC ####[facility] Cgvunzfeeh4796 [place] [id number]. Garima Pulliam PLT 184 103/ul Normal 150-450 [facility] Comment on above: Performed By: #### C BC ####[facility] Agbdeitqle[address]67 [place], [place] [address]Rk. Garima Pulliam RBC 4.80 106/ul Normal 4.70-6.10 [facility] Comment on above: Performed By: #### C BC ####[facility] Eipextzvvi0568 [place] [id number]. Garima Pulliam WBC 10.8 103/ul Normal 4.0-11.0 [facility] Comment on above: Performed By: #### C BC ####[facility] Gpvtwddyhz0656 [place] [phone]. Garima Pulliam [facility]on [facility]24 SARS-CoV-2 (COVID-19) RNA MARIE+probe Ql (Unsp spec) Not detected Normal NOT DETECTED [facility] Comment on above: Result Comment: When diagnostic [...] for this test is supported by the [place] of Health and Human Service's declaration that [...] Performed By: #### C VDTBH ####[facility] Wwnixbfhtb[address] [place], [place] [address]Dr. Garima Pulliam INFLUENZA A AND B AGon 11-[facility] BELOW Normal [facility] Comment on above: Result Comment: Nega tive for Flu A protein angiten. Infection due to Flu A cannot be ruled out. Flu A angiten in the sample may be below the detection limit of the test. Performed By: #### I NFLUAB ####[facility] Uhunwfaxri[address] [place], [place] [address]Dr. Garima Pulliam INFLUBNEGH SEE BELOW Normal [facility] Comment on above: Result Comment: Nega tive for Flu B protein antigen. Infection due to Flu B cannot be ruled out. Flu B antigen in the sample may be below the detection limit of the test. Performed By: #### I NFLUAB ####[facility] Hbuxmzglxk4[address] [place], [place] [address]Dr. Garima Pulliam INFLUENZA A AG Negative Normal NEGATIVE SEE COMMENT [facility] Comment on above: Performed By: #### I NFLUAB ####[facility] Wtxnqknjtf[address] [place], [place] [address]Dr. Garima [facility] INFLUENZA B AG Negative Normal NEGATIVE SEE COMMENT [facility] Comment on above: Performed By: #### I NFLUAB ####[facility] Iiduilwocv[address] [place], [place] [address]Dr. Garima Pulliam PROF CHEM 8 (BAS METB)on Anion gap [Moles/Vol] 8.2 mmol/L Normal [facility] Comment on above: Performed By: #### B MP, HSTROPN, BNP ####[facility] Xhybownsnb6270 [place] [address]Dr. Garima Pulliam Calcium [Mass/Vol] 8.7 mg/dL Normal 8.5-10.1 [facility] Comment on above: Performed By: #### B MP, HSTROPN, BNP ####[facility] Xmifyctrib1764 [place] [address]Dr. Garima Pulliam Chloride [Moles/Vol] 103 mmol/L Normal 98-107 [facility] Comment on above: Performed By: #### B MP, HSTROPN, BNP ####[facility] Fmtebkoizf[address] [place], [place] [address]Dr. Garima Pulliam CO2 [Moles/Vol] 29.4 mmol/L Normal 21.0-32.0 [facility] Comment on above: Performed By: #### B MP, HSTROPN, BNP ####[facility] Bljzuwywtn[address] [place], [place] [address]Dr. Garima Pulliam Creatinine [Mass/Vol] 0.69 mg/dL Critically low 0.70-1.30 [facility] Comment on above: Performed By: #### B MP, HSTROPN, BNP ####[facility] Ltltvdrbjk040[address] [place] [address]Dr. Garima Pulliam EGFR-AF TURKISH >60 Normal >=60 [facility] Comment on above: Performed By: #### B MP, HSTROPN, BNP ####[facility] Vzbsyzyrni[address] [place], [place] [address]Dr. Garima Pulliam EGFR-NON AF TURKISH >60 Normal >=60 [facility] Comment on above: Performed By: #### B MP, HSTROPN, BNP ####[facility] Rebswlwnpi9519 [place] [address]Dr. Garima Pulliam Glucose [Mass/Vol] 209 mg/dL Critically high 74-106 [facility] Comment on above: Performed By: #### B MP, HSTROPN, BNP ####[facility] Jvluaptddc2764 [place] [address]Dr. Garima Pulliam Potassium [Moles/Vol] 3.6 mmol/L Normal 3.5-5.1 [facility] Comment on above: Performed By: #### B MP, HSTROPN, BNP ####[facility] Frhorxqrrt0534 [place] [address]Dr. Garima Pulliam Sodium [Moles/Vol] 137 mmol/L Normal 136-145 [facility] Comment on above: Performed By: #### B MP, HSTROPN, BNP ####[facility] Jbapttmzoo75[address] [place] [address]Dr. Garima Pulliam Urea nitrogen [Mass/Vol] 11.0 mg/dL Normal 7.0-18.0 [facility] Comment on above: Performed By: #### B MP, HSTROPN, BNP ####[facility] Jjnmqsqezk9585 [place] [address]Dr. Garima Pulliam Urea nitrogen/Creatinine [Mass ratio] 15.9 mg/mg Normal [facility] Comment on above: Performed By: #### B MP, HSTROPN, BNP ####[facility] Ulaebkziow750[address] [place] [address]Dr. Gariam Pulliam TROPONIN, HIGH SENSITIVITYon 11-20-2022 HSTROP 8.7 pg/mL Normal 4.0-76.1 [facility] Comment on above: Result Comment: CUT- OFF POINTS HAVE BEEN ESTABLISHED BASED ON THE FOURTH UNIVERSAL DEFINITIONS OF MYOCARDIALINFARCTION. THE UPPER REFERENCE LIMIT (URL) OF TROPONIN, DEFINED THE 99TH PERCENTILE OFcTnI DISTRIBUTION IN A REFERENCE POPULATION, HAS BEEN CONFIRMED THE DECISION THRESHOLDFOR MO DIAGNOSIS. Performed By: #### B MP, HSTROPN, BNP ####[facility] Oefkbbfeyb[address] [place] [address]Dr. Garima Pulliam XR CHEST 1 Von 11-20-2022 XR CHEST 1 V Normal [facility] XR CHEST 1 Von 10-02-2022 XR CHEST 1 V Normal [facility] BNPon 09-29-2022 Natriuretic peptide B (Bld) [Mass/Vol] 107.0 pg/mL Normal <=900.0 [facility] Comment on above: Performed By: #### C MP, BNP, CMADM ####[facility] Ielthjuuee24[address] [place] [address]Dr. Garima Pulliam CARDIAC NASH ADMITon 022 CK [Catalytic activity/Vol] 190 U/L Normal 39-308 [facility] Comment on above: Performed By: #### C MP, BNP, CMADM ####[facility] Xmetegulla[address] [place] [address]Dr. Garima Heraclio CK.MB [Mass/Vol] 11.11 ng/mL Critically high <=3.60 Th [facility] Comment on above: Performed By: #### C MP, BNP, CMADM ####[facility] Bwuzecyjhl8[address] [place] [address]Dr. Garima Pulliam HSTROP 11.8 pg/mL Normal 4.0-76.1 [facility] Comment on above: Result Comment: CUT- OFF POINTS HAVE BEEN ESTABLISHED BASED ON THE FOURTH UNIVERSAL DEFINITIONS OF MYOCARDIALINFARCTION. THE UPPER REFERENCE LIMIT (URL) OF TROPONIN, DEFINED THE 99TH PERCENTILE OFcTnI DISTRIBUTION IN A REFERENCE POPULATION, HAS BEEN CONFIRMED THE DECISION THRESHOLDFOR MO DIAGNOSIS. Performed By: #### C MP, BNP, CMADM ####[facility] Bhtlbzbacf8137 [place] [address]Dr. aGrima Pulliam DORIS 133 ng/mL Critically high 16-96 [facility] Comment on above: Performed By: #### C MP, BNP, CMADM ####[facility] Wzwlxmcivx9409 [place] [address]Dr. Garima Heraclio CBC AUTO DIFFon 09-29-2022 BASO # 0.0 103/ul Normal 0.0-0.1 [facility] Comment on above: Performed By: #### C BC ####[facility] Xhqdiemqjf57[address] [place] [address]Dr. Garima Heraclio Basophils/100 WBC (Bld) 0.2 % Normal 0.2-2.0 [facility] Comment on above: Performed By: #### C BC ####[facility] Nffpcuwljt4076 [place] [id number]. Garima Pulliam EO # 0.1 103/ul Normal 0.0-0.7 [facility] Comment on above: Performed By: #### C BC ####[facility] Nuoefaqhuw2588 [place] [id number]. Garima Pulliam Eosinophils/100 WBC (Bld) 1.4 % Normal 0.9-7.0 [facility] Comment on above: Performed By: #### C BC ####[facility] Cogsmdikgn[address] [place], [place] [address]Dr. Garima Pulliam Erythrocyte distribution width (RBC) [Ratio] 13.7 % Normal 11.0-15.0 [facility] Comment on above: Performed By: #### C BC ####[facility] H[address]amwydjai[address] [place], [place] [address]Dr. Garima Pulliam Hematocrit (Bld) [Volume fraction] 45.4 % Normal 42.0-54.0 [facility] Comment on above: Performed By: #### C BC ####[facility] Shytdficlz[address] [place], [place] [address]Dr. Garima Pulliam Hemoglobin (Bld) [Mass/Vol] 14.8 g/dL Normal 14.0-18.0 [facility] Comment on above: Performed By: #### C BC ####[facility] Iptguwzeia[address] [place], [place] [address]Dr. Garima Pulliam IG # 0.04 10e3/ul Critically high 0.00-0.03 [facility] Comment on above: Performed By: #### C BC ####[facility] Ymgnpwuhrz[address] [place], [place] [address]Dr. Garima Pulliam IG % 0.5 % Normal 0.0-0.5 [facility] Comment on above: Performed By: #### C BC ####[facility] Ywxpnrcesk[address] [place], [place] [address]Dr. Garima Pulliam LYMPH # 1.1 103/ul Critically low 1.2-3.[address] [facility] Comment on above: Performed By: #### C BC ####[facility] Gjyykqongi9436 [place] [id number]. Garima Pulliam Lymphocytes/100 WBC (Bld) 12.7 % Critically low 20.5-60.0 [facility] Comment on above: Performed By: #### C BC ####[facility] Lnximzxnuw7915 [place] [id number]. Chapisrenu Pulliam MANUAL DIFF REQ NO Normal [facility] Comment on above: Performed By: #### C BC ####[facility] Vrvkyjauly[address] [place], [place] [address]Dr. Garima Heraclio MCH (RBC) [Entitic mass] 30.0 pg Normal 25.9-34.0 [facility] Comment on above: Performed By: #### C BC ####[facility] Lkgbokfcct[address] [place], [place] [address]Dr. Garima Heraclio MCHC (RBC) [Mass/Vol] 32.6 g/dL Normal 29.9-35.2 [facility] Comment on above: Performed By: #### C BC ####[facility] Zdzoocaurm[address] [place], [place] [address]Dr. Garima Heraclio MCV (RBC) [Entitic vol] 91.9 fL Normal 80.0-94.0 [facility] Comment on above: Performed By: #### C BC ####[facility] Mfatwpgjuc01[address] [place], [place] [address]Dr. Garima Pulliam MONO # 0.4 103/ul Normal 0.3-0.8 [facility] Comment on above: Performed By: #### C BC ####[facility] [address]tyfiyzfvl[address] [place], [place] [address]Dr. Chapisrenu Pulliam Monocytes/100 WBC (Bld) 4.8 % Normal 1.7-12.0 [facility] Comment on above: Performed By: #### C BC ####[facility] Kaxwdjbhfm[address] [place], [place] [address]Dr. Garima Pulliam NEUT # 7.1 103/ul Critically high 1.4-6.5 [facility] Comment on above: Performed By: #### C BC ####[facility] Bgwmvnatjz0687 [place], [place] [address]Ql. Garima Pulliam Neutrophils/100 WBC (Bld) 80.4 % Critically high 43.0-75.0 [facility] Comment on above: Performed By: #### C BC ####[facility] Hsfaomewlk0637 [place] [id number]. Garima Pulliam Platelet mean volume (Bld) [Entitic vol] 9.1 fL Critically low 9.5-13.5 [facility] Comment on above: Performed By: #### C BC ####[facility] Rlnmparbiy2070 [place] [id number]. Garima Pulliam PLT 200 103/ul Normal 150-450 [facility] Comment on above: Performed By: #### C BC ####[facility] Bfzukoadfg4501 [place] [id number]. Garima Pulliam RBC 4.94 106/ul Normal 4.70-6.10 [facility] Comment on above: Performed By: #### C BC ####[facility] Wwzyqrtrzt7323 [place] [id number]. Garima Pulliam WBC 8.9 103/ul Normal 4.0-11.0 [facility] Comment on above: Performed By: #### C BC ####[facility] Pejofapmrv[address] [place] [phone]. Garima Pulliam Covid-19 PCR (CVDTB)on SARS-CoV-2 (COVID-19) RNA MARIE+probe Ql (Unsp spec) Not detected Normal NOT DETECTED [facility] Comment on above: Result Comment: When diagnostic [...] for this test is supported by the [place] of Health and Human Service's declaration that [...] Performed By: #### C VDTBH ####[facility] Ielkhukzlc17[address] [place] [address]Dr. Garima Pulliam LACTATE/LACTIC ACIDon 2021 Lactate [Moles/Vol] 1.7 mmol/L Normal 0.4-1.9 [facility] Comment on above: Performed By: #### L ACT ####[facility] Riegugknne[address] [place], [place] [address]Dr. Garima Pulliam PROF 14(COMP METB)on 022 Albumin [Mass/Vol] 3.8 g/dL Normal 3.4-5.0 [facility] Comment on above: Performed By: #### C MP, BNP, CMADM ####[facility] Udxisxrvsh[address] [place], [place] [address]Dr. Garima Pulliam Albumin/Globulin [Mass ratio] 1.5 {ratio} Normal [facility] Comment on above: Performed By: #### C MP, BNP, CMADM ####[facility] Yhshfrqwoa75[address] [place] [address]Dr. Garima Pulliam ALP [Catalytic activity/Vol] 62 U/L Normal 46-116 [facility] Comment on above: Performed By: #### C MP, BNP, CMADM ####[facility] Fzbyismftq3747 [place] [address]Dr. Garima Pulliam ALT [Catalytic activity/Vol] 37 U/L Normal 16-63 [facility] Comment on above: Performed By: #### C MP, BNP, CMADM ####[facility] Wcbuzfgfqs5741 [place] [address]Dr. Garima Pulliam Anion gap [Moles/Vol] 8.0 mmol/L Normal [facility] Comment on above: Performed By: #### C MP, BNP, CMADM ####[facility] Rnvfltnych7889 [place] [address]Dr. Garima Pulliam AST [Catalytic activity/Vol] 20 U/L Normal 15-37 [facility] Comment on above: Performed By: #### C MP, BNP, CMADM ####[facility] Rxwmnajqwr7892 [place] [address]Dr. Garima Pulliam Bilirubin [Mass/Vol] 0.6 mg/dL Normal 0.2-1.0 [facility] Comment on above: Performed By: #### C MP, BNP, CMADM ####[facility] Ewoydqclvp9320 [place] [address]Dr. Garima Pulliam Calcium [Mass/Vol] 9.1 mg/dL Normal 8.5-10.1 [facility] Comment on above: Performed By: #### C MP, BNP, CMADM ####[facility] [address]fqwcdc[address] [place], [place] [address]Dr. Garima Pulliam Chloride [Moles/Vol] 103 mmol/L Normal 98-107 [facility] Comment on above: Performed By: #### C MP, BNP, CMADM ####[facility] Mdpgnfxzlq[address] [place], [place] [address]Dr. Garima Pulliam CO2 [Moles/Vol] 31.8 mmol/L Normal 21.0-32.0 [facility] Comment on above: Performed By: #### C MP, BNP, CMADM ####[facility] Wzghnnsujj[address] [place], [place] [address]Dr. Garima Pulliam Creatinine [Mass/Vol] 0.63 mg/dL Critically low 0.70-1.30 [facility] Comment on above: Performed By: #### C MP, BNP, CMADM ####[facility] Amuhrykatc[address] [place], [place] [address]Dr. Garima Pulliam EGFR-AF TURKISH >60 Normal >=60 [facility] Comment on above: Performed By: #### C MP, BNP, CMADM ####[facility] Ajylkktmng[address] [place], [place] [address]Dr. Garima Pulliam EGFR-NON AF TURKISH >60 Normal >=60 [facility] Comment on above: Performed By: #### C MP, BNP, CMADM ####[facility] Uqspfpvpnb7021 [place] [address]Dr. Garima Pulliam Globulin (S) [Mass/Vol] 2.6 g/dL Normal [facility] Comment on above: Performed By: #### C MP, BNP, CMADM ####[facility] Mzxfbrfaet3815 [place] [address]Dr. Garima Pulliam Glucose [Mass/Vol] 103 mg/dL Normal 74-106 [facility] Comment on above: Performed By: #### C MP, BNP, CMADM ####[facility] Ngdisvsorz1921 [place] [address]Dr. Garima Pulliam Potassium [Moles/Vol] 3.8 mmol/L Normal 3.5-5.1 [facility] Comment on above: Performed By: #### C MP, BNP, CMADM ####[facility] Lfkzagjhxn1833 [place] [address]Dr. Garima Pulliam Protein [Mass/Vol] 6.4 g/dL Normal 6.4-8.2 [facility] Comment on above: Performed By: #### C MP, BNP, CMADM ####[facility] Qsiahuzpox8230 [place] [address]Dr. Garima Pulliam Sodium [Moles/Vol] 139 mmol/L Normal 136-145 [facility] Comment on above: Performed By: #### C MP, BNP, CMADM ####[facility] Tblyzhhbyd6239 [place] [address]Dr. Garima uPlliam Urea nitrogen [Mass/Vol] 7.0 mg/dL Normal 7.0-18.0 [facility] Comment on above: Performed By: #### C MP, BNP, CMADM ####[facility] Hypopuazzv7240 [place] [address]Dr. Garima Pulliam Urea nitrogen/Creatinine [Mass ratio] 11.1 mg/mg Normal [facility] Comment on above: Performed By: #### C MP, BNP, CMADM ####[facility] Frjaguhexx2504 [place] [address]Dr. Garima Pulliam PROTIMEon 09-29-2022 INR Coag (PPP) [Relative time] 1.14 {INR} Normal [facility] Comment on above: Performed By: #### P T, PTT ####[facility] Ckwwbrbngr[address] [place], [place] [address]Dr. Garima Pulliam INR GUIDELINES SEE BELOW Normal The [facility] Comment on above: Result Comment: WESLEY RED INR: 2.0 - 3.0 CONDITIONS NOT LISTED BELOW 2.5 - 3.5 FOR PROSTHETIC HEART VALVE REPLACEMENT 2.5 - 3.5 RECURRENT THROMBOSIS Performed By: #### P T, PTT ####[facility] Jvpmlujewd[address] [place], [place] [address]Dr. Garima Pulliam PT Coag (PPP) [Time] 12.2 s Critically high 9.0-11.6 [facility] Comment on above: Performed By: #### P T, PTT ####[facility] Ohpnvzhvit[address] [place], [place] [address]Dr. Garima Pulliam PTTon 09-29-2022 aPTT Coag (Bld) [Time] 29.3 s Normal 22.3-36.2 [facility] Comment on above: Performed By: #### P T, PTT ####[facility] [address]qthkh[address] [place], [place] [address]Dr. Garima Pulliam XR CHEST 1 Von 09-29-2022 XR CHEST 1 V Normal [facility] CBC AUTO DIFFon 09-26-2022 BASO # 0.0 103/ul Normal 0.0-0.1 [facility] Comment on above: Performed By: #### C BC ####[facility] Mtvbdiytnq[address] [place], [place] [address]Dr. Garima Pulliam Basophils/100 WBC (Bld) 0.2 % Normal 0.2-2.0 [facility] Comment on above: Performed By: #### C BC ####[facility] Qtrcofgynm[address] [place], [place] [address]Dr. Garima Pulliam EO # 0.1 103/ul Normal 0.0-0.7 [facility] Comment on above: Performed By: #### C BC ####[facility] Nzvuuylycf[address] [place], [place] [address]Dr. Garima Pulliam Eosinophils/100 WBC (Bld) 1.0 % Normal 0.9-7.0 [facility] Comment on above: Performed By: #### C BC ####[facility] [address]fekqwbbfi[address] [place], [place] [address]Dr. Garima Pulliam Erythrocyte distribution width (RBC) [Ratio] 13.4 % Normal 11.0-15.0 [facility] Comment on above: Performed By: #### C BC ####[facility] [address]hsmchsahr[address] [place], [place] [address]Dr. Garima Pulliam Hematocrit (Bld) [Volume fraction] 46.3 % Normal 42.0-54.0 [facility] Comment on above: Performed By: #### C BC ####[facility] [address]axfiwph[address] [place], [place] [address]Dr. Garima Pulliam Hemoglobin (Bld) [Mass/Vol] 15.3 g/dL Normal 14.0-18.0 [facility] Comment on above: Performed By: #### C BC ####[facility] [place] [address] [place], [place] [address]Dr. Garima Pulliam IG # 0.05 10e3/ul Critically high 0.00-0.03 [facility] Comment on above: Performed By: #### C BC ####[facility] Nhwpantsvs[address] [place], [place] [address]Dr. Garima Pulliam IG % 0.4 % Normal 0.0-0.5 [facility] Comment on above: Performed By: #### C BC ####[facility] Uxuecvykow[address] [place], [place] [address]Dr. Garima Pulliam LYMPH # 1.7 103/ul Normal 1.2-3.8 [facility] Comment on above: Performed By: #### C BC ####[facility] [address]ib[address]om[address] [place], [place] [address]Dr. Garima Pulliam Lymphocytes/100 WBC (Bld) 12.7 % Critically low 20.5-60.0 [facility] Comment on above: Performed By: #### C BC ####[facility] Vyjesq[address]wt[address] [place] [address]DrAdalberto Pulliam MANUAL DIFF REQ NO Normal [facility] Comment on above: Performed By: #### C BC ####[facility] Rnacssqhyw[address] [place] [address]Dr. Garima Pulliam MCH (RBC) [Entitic mass] 30.1 pg Normal 25.9-34.0 [facility] Comment on above: Performed By: #### C BC ####[facility] Wtjcborl[address] [place], [place] [address]Dr. Garima Pulliam MCHC (RBC) [Mass/Vol] 33.0 g/dL Normal 29.9-35.2 [facility] Comment on above: Performed By: #### C BC ####[facility] Jimgkklxas[address] [place], [place] [address]DrAdalberto Pulliam MCV (RBC) [Entitic vol] 91.1 fL Normal 80.0-94.0 [facility] Comment on above: Performed By: #### C BC ####[facility] U[address]jp[address] [place], [place] [address]DrAdalberto Pulliam MONO # 0.9 103/ul Critically high 0.3-0.8 [facility] Comment on above: Performed By: #### C BC ####[facility] Zpnhgqewza[address] [place], [place] [address]DrAdalberto Pulliam Monocytes/100 WBC (Bld) 7.0 % Normal 1.7-12.0 [facility] Comment on above: Performed By: #### C BC ####[facility] Kzawcqzxac[address] [place], [place] [address]DrAdalberto Pulliam NEUT # 10.4 103/ul Critically high 1.4-6.5 [facility] Comment on above: Performed By: #### C BC ####[facility] Xuyvlprspx[address] [place], [place] [address]DrAdalberto Pulliam Neutrophils/100 WBC (Bld) 78.7 % Critically high 43.0-75.0 [facility] Comment on above: Performed By: #### C BC ####[facility] Pxjedcenq[address] [place] [address]Dr. Garima Pulliam Platelet mean volume (Bld) [Entitic vol] 8.9 fL Critically low 9.5-13.5 [facility] Comment on above: Performed By: #### C BC ####[facility] Lkqoqvxgps[address] [place] [address]Dr. Garima Pulliam PLT 195 103/ul Normal 150-450 [facility] Comment on above: Performed By: #### C BC ####[facility] Zkocazwabn[address] [place], [place] [address]Dr. Garima Pulliam RBC 5.08 106/ul Normal 4.70-6.10 [facility] Comment on above: Performed By: #### C BC ####[facility] Kgrlyobhjd[address] [place], [place] [address]Dr. Garima Pulliam WBC 13.2 103/ul Critically high 4.0-11.0 [facility] Comment on above: Performed By: #### C BC ####[facility] Mlnzhiabmg[address] [place], [place] [address]Dr. Garima Pulliam PROF 14(COMP METB)on 022 Albumin [Mass/Vol] 3.5 g/dL Normal 3.4-5.0 [facility] Comment on above: Performed By: #### C DAVID HSTROPN ####[facility] Hkxscldyww[address] [place] [address]Dr. Garima Pulliam Albumin/Globulin [Mass ratio] 1.2 {ratio} Normal [facility] Comment on above: Performed By: #### C RAFAT HERNANDEZTROPN ####[facility] Qanmfbrrgb[address] [place] [address]Dr. Garima Pulliam ALP [Catalytic activity/Vol] 71 U/L Normal 46-116 [facility] Comment on above: Performed By: #### C DAVID HSTROPN ####[facility] Idggzyhucj38[address] [place] [address]Dr. Garima Pulliam ALT [Catalytic activity/Vol] 37 U/L Normal 16-63 [facility] Comment on above: Performed By: #### C DAVID, HSTROPN ####[facility] Icdaeqbsvv3584 [place] [address]Dr. Garima Pulliam Anion gap [Moles/Vol] 4.8 mmol/L Normal [facility] Comment on above: Performed By: #### C DAVID, HSTROPN ####[facility] [address]zy[address]tyuew[address] [place], [place] [address]Dr. Garima Pulliam AST [Catalytic activity/Vol] 21 U/L Normal 15-37 [facility] Comment on above: Performed By: #### C DAVID, HSTROPN ####[facility] Qwztolfhav[address] [place], [place] [address]Dr. Garima Pulliam Bilirubin [Mass/Vol] 0.3 mg/dL Normal 0.2-1.0 [facility] Comment on above: Performed By: #### C DAVID, HSTROPN ####[facility] [address]ymtub[address] [place] [address]Dr. Garima Pulliam Calcium [Mass/Vol] 8.9 mg/dL Normal 8.5-10.1 [facility] Comment on above: Performed By: #### C DAVID, HSTROPN ####[facility] Lqrextysrg[address]83 [place] [address]Dr. Garima Pulliam Chloride [Moles/Vol] 106 mmol/L Normal 98-107 [facility] Comment on above: Performed By: #### C DAVID, HSTROPN ####[facility] Sqkfrirvut[address] [place] [address]Dr. Garima Pulliam CO2 [Moles/Vol] 29.8 mmol/L Normal 21.0-32.0 [facility] Comment on above: Performed By: #### C DAVID, HSTROPN ####[facility] Yzztkfxglt0667 [place] [address]Dr. Garima Pulliam Creatinine [Mass/Vol] 0.68 mg/dL Critically low 0.70-1.30 The [facility] Comment on above: Performed By: #### C MP, HSTROPN ####[facility] Nzevpzjagg[address] [place] [address]Dr. Garima Pulliam EGFR-AF TURKISH >60 Normal >=60 [facility] Comment on above: Performed By: #### C MP, HSTROPN ####[facility] Lvvsrbelex[address] [place] [address]Dr. Chapislan Pulliam EGFR-NON AF TURKISH >60 Normal >=60 [facility] Comment on above: Performed By: #### C MP, HSTROPN ####[facility] Hkwgtnbkxk9369 [place] [address]Dr. Garima Pulliam Globulin (S) [Mass/Vol] 2.8 g/dL Normal [facility] Comment on above: Performed By: #### C MP, HSTROPN ####[facility] Jtpzqolvhh38[address] [place] [address]Dr. Garima Pulliam Glucose [Mass/Vol] 133 mg/dL Critically high 74-106 [facility] Comment on above: Performed By: #### C MP, HSTROPN ####[facility] Lgtaqjkjgr027[address] [place] [address]Dr. Chapisrenu Pulliam Potassium [Moles/Vol] 3.6 mmol/L Normal 3.5-5.1 [facility] Comment on above: Performed By: #### C MP, HSTROPN ####[facility] Pjfkfjhbfv[address] [place] [address]Dr. Chapisrenu Pulliam Protein [Mass/Vol] 6.3 g/dL Critically low 6.4-8.2 [facility] Comment on above: Performed By: #### C MP, HSTROPN ####[facility] W[address]faxsjuv[address] [place], [place] [address]Dr. Chapisrenu Pulliam Sodium [Moles/Vol] 137 mmol/L Normal 136-145 [facility] Comment on above: Performed By: #### C MP, HSTROPN ####[facility] [address]laa[address] [place], [place] [address]Dr. Garima Pulliam Urea nitrogen [Mass/Vol] 15.0 mg/dL Normal 7.0-18.0 [facility] Comment on above: Performed By: #### C DAVID HSTROPN ####[facility] Nvpjhxbvae[address] [place] [address]Dr. Chapisrenu Pulliam Urea nitrogen/Creatinine [Mass ratio] 22.1 mg/mg Normal [facility] Comment on above: Performed By: #### C DAVID HSTROPN ####[facility] Knqugwmtbf[address] [place] [address]Dr. Garima Heraclio TROPONIN, HIGH SENSITIVITYon 09-26-2022 HSTROP 12.8 pg/mL Normal 4.0-76.1 [facility] Comment on above: Result Comment: CUT- OFF POINTS HAVE BEEN ESTABLISHED BASED ON THE FOURTH UNIVERSAL DEFINITIONS OF MYOCARDIALINFARCTION. THE UPPER REFERENCE LIMIT (URL) OF TROPONIN, DEFINED THE 99TH PERCENTILE OFcTnI DISTRIBUTION IN A REFERENCE POPULATION, HAS BEEN CONFIRMED THE DECISION THRESHOLDFOR [place] DIAGNOSIS. Performed By: #### C DAVID HSTROPN ####[facility] [address]opojn[address] [place] [address]Dr. Chapisrenu Pulliam XR CHEST 1 Von 09-26-2022 XR CHEST 1 V Normal [facility] XR CHEST 1 Von 09-16-2022 XR CHEST 1 V Normal [facility] CBC AUTO DIFFon 09-15-2022 BASO # 0.0 103/ul Normal 0.0-0.1 [facility] Comment on above: Performed By: #### C BC ####[facility] K[address]qhblybs[address] [place] [address]Dr. Garima Heraclio Basophils/100 WBC (Bld) 0.1 % Critically low 0.2-2.0 [facility] Comment on above: Performed By: #### C BC ####[facility] Wwysticfcp[address] [place] [address]Dr. Garima Pulliam EO # 0.0 103/ul Normal 0.0-0.7 [facility] Comment on above: Performed By: #### C BC ####[facility] Quzumyqkof[address] [place] [address]Dr. Garima Pulliam Eosinophils/100 WBC (Bld) 0.1 % Critically low 0.9-7.0 [facility] Comment on above: Performed By: #### C BC ####[facility] Qmolmqnhev7575 [place] [address]Dr. Garima Pulliam Erythrocyte distribution width (RBC) [Ratio] 14.1 % Normal 11.0-15.0 [facility] Comment on above: Performed By: #### C BC ####[facility] K[address]lsrhcvdu[address] [place], [place] [address]Dr. Garima Pulliam Hematocrit (Bld) [Volume fraction] 46.1 % Normal 42.0-54.0 [facility] Comment on above: Performed By: #### C BC ####[facility] K[address] [place], [place] [address]Dr. Garima Pulliam Hemoglobin (Bld) [Mass/Vol] 15.0 g/dL Normal 14.0-18.0 [facility] Comment on above: Performed By: #### C BC ####[facility] [address] [place], [place] [address]Dr. Garima Pulliam IG # 0.03 10e3/ul Normal 0.00-0.03 [facility] Comment on above: Performed By: #### C BC ####[facility] [address]ib[address]gf[address] [place], [place] [address]Dr. Garima Pulliam IG % 0.3 % Normal 0.0-0.5 [facility] Comment on above: Performed By: #### C BC ####[facility] [address] [place], [place] [address]Dr. Garima Pulliam LYMPH # 0.6 103/ul Critically low 1.2-3.[address] [facility] Comment on above: Performed By: #### C BC ####[facility] [address]vteupze[address] [place], [place] [address]Dr. Garima Pulliam Lymphocytes/100 WBC (Bld) 5.8 % Critically low 20.5-60.0 [facility] Comment on above: Performed By: #### C BC ####[facility] [address]xqcrdu[address] [place] [id number]. Garima Pulliam MANUAL DIFF REQ NO Normal [facility] Comment on above: Performed By: #### C BC ####[facility] Ifojdobmzo6[address] [place] [phone]. Garima Pulliam MCH (RBC) [Entitic mass] 30.2 pg Normal 25.9-34.0 [facility] Comment on above: Performed By: #### C BC ####[facility] Jhs[address]duugjz[address] [place] [address]Dr. Garima Pulliam MCHC (RBC) [Mass/Vol] 32.5 g/dL Normal 29.9-35.2 [facility] Comment on above: Performed By: #### C BC ####[facility] Fihbvcowmr[address] [place] [address]Dr. Garima Pulliam MCV (RBC) [Entitic vol] 92.8 fL Normal 80.0-94.0 [facility] Comment on above: Performed By: #### C BC ####[facility] Bbelbvvdvx14[address] [place] [address]Dr. Garima Heraclio MONO # 0.3 103/ul Normal 0.3-0.8 [facility] Comment on above: Performed By: #### C BC ####[facility] Yqdaryireq[address] [place] [id number]. Garima Heraclio Monocytes/100 WBC (Bld) 3.2 % Normal 1.7-12.0 [facility] Comment on above: Performed By: #### C BC ####[facility] Gvpufznaze060[address] [place] [phone]. Garima Pulliam NEUT # 9.8 103/ul Critically high 1.4-6.5 [facility] Comment on above: Performed By: #### C BC ####[facility] Gwsetfanbk4093 [place] [phone]. Garima Pulliam Neutrophils/100 WBC (Bld) 90.5 % Critically high 43.0-75.0 [facility] Comment on above: Performed By: #### C BC ####[facility] Swdclzyhek[address] [place] [phone]. Garima Pulliam Platelet mean volume (Bld) [Entitic vol] 9.4 fL Critically low 9.5-13.5 [facility] Comment on above: Performed By: #### C BC ####[facility] Ycx[address]vqgwsw[address] [place] [phone]. Garima Pulliam PLT 208 103/ul Normal 150-450 [facility] Comment on above: Performed By: #### C BC ####[facility] Kegomckffq[address] [place] [address]Dr. Garima Pulliam RBC 4.97 106/ul Normal 4.70-6.10 [facility] Comment on above: Performed By: #### C BC ####[facility] Ahzxyjlrgh[address] [place] [address]Dr. Garima Pulliam WBC 10.8 103/ul Normal 4.0-11.0 [facility] Comment on above: Performed By: #### C BC ####[facility] Ymalhksoqx1136 [place] [address]Dr. Garima Pulliam PROF 14(COMP METB)on 022 Albumin [Mass/Vol] 4.0 g/dL Normal 3.4-5.0 [facility] Comment on above: Performed By: #### C MP ####[facility] Bhvmfgatko6194 [place] [address]Dr. Garima Pulliam Albumin/Globulin [Mass ratio] 1.5 {ratio} Normal [facility] Comment on above: Performed By: #### C MP ####[facility] Evullkexkz63[address] [place] [address]Dr. Garima Pulliam ALP [Catalytic activity/Vol] 73 U/L Normal 46-116 [facility] Comment on above: Performed By: #### C MP ####[facility] Yxtnjqdago4528 [place] [address]Dr. Garima Pulliam ALT [Catalytic activity/Vol] 42 U/L Normal 16-63 [facility] Comment on above: Performed By: #### C MP ####[facility] Tkhzzovvbu7758 [place] [address]Dr. Garima Pulliam Anion gap [Moles/Vol] 9.1 mmol/L Normal [facility] Comment on above: Performed By: #### C MP ####[facility] [address]ptnqofm[address] [place], [place] [address]Dr. Garima Pulliam AST [Catalytic activity/Vol] 28 U/L Normal 15-37 [facility] Comment on above: Performed By: #### C MP ####[facility] Voeomwgpst[address] [place], [place] [address]Dr. Garima Pulliam Bilirubin [Mass/Vol] 0.6 mg/dL Normal 0.2-1.0 [facility] Comment on above: Performed By: #### C MP ####[facility] Glvclrysig[address] [place], [place] [address]Dr. Garima Pulliam Calcium [Mass/Vol] 8.6 mg/dL Normal 8.5-10.1 The [facility] Comment on above: Performed By: #### C MP ####[facility] Xdclacchdu[address] [place], [place] [address]Dr. Garima Pulliam Chloride [Moles/Vol] 105 mmol/L Normal 98-107 [facility] Comment on above: Performed By: #### C MP ####[facility] [address]vrqdhioix[address] [place], [place] [address]Dr. Garima Pulliam CO2 [Moles/Vol] 28.5 mmol/L Normal 21.0-32.0 [facility] Comment on above: Performed By: #### C MP ####[facility] Ymfzfbfnhq[address] [place], [place] [address]Dr. Garima Heraclio Creatinine [Mass/Vol] 0.78 mg/dL Normal 0.70-1.30 [facility] Comment on above: Performed By: #### C MP ####[facility] [address]oviyxm[address] [place], [place] [address]Dr. Chapisrenu Heraclio EGFR-AF TURKISH >60 Normal >=60 [facility] Comment on above: Performed By: #### C MP ####[facility] B[address]vpa[address] [place], [place] [address]Dr. Garima Pulliam EGFR-NON AF TURKISH >60 Normal >=60 [facility] Comment on above: Performed By: #### C MP ####[facility] Fvyglpoagz3[address] [place] [address]Dr. Garima Pulliam Globulin (S) [Mass/Vol] 2.7 g/dL Normal [facility] Comment on above: Performed By: #### C MP ####[facility] Ljabhtpdjo2095 [place] [address]Dr. Garima Pulliam Glucose [Mass/Vol] 220 mg/dL Critically high 74-106 [facility] Comment on above: Performed By: #### C MP ####[facility] Mwpxtjcrlk5429 [place] [address]Dr. Garima Pulliam Potassium [Moles/Vol] 3.6 mmol/L Normal 3.5-5.1 [facility] Comment on above: Performed By: #### C MP ####[facility] Z[address]iaxcpb[address] [place], [place] [address]Dr. Garima Pulliam Protein [Mass/Vol] 6.7 g/dL Normal 6.4-8.2 [facility] Comment on above: Performed By: #### C MP ####[facility] Prqkshotkk[address] [place], [place] [address]Dr. Garima Pulliam Sodium [Moles/Vol] 139 mmol/L Normal 136-145 [facility] Comment on above: Performed By: #### C MP ####[facility] Hyrchmzoav[address] [place], [place] [address]Dr. Garima Pulliam Urea nitrogen [Mass/Vol] 11.0 mg/dL Normal 7.0-18.0 [facility] Comment on above: Performed By: #### C MP ####[facility] Buwbuezqmb[address] [place], [place] [address]Dr. Garima Pulliam Urea nitrogen/Creatinine [Mass ratio] 14.1 mg/mg Normal [facility] Comment on above: Performed By: #### C MP ####[facility] Jfhehcjjes[address] [place], [place] [address]Dr. Garima Pulliam CARDIAC NASH 3-6on 2 CK [Catalytic activity/Vol] 240 U/L Normal 39-308 [facility] Comment on above: Performed By: #### C MREP ####[facility] Bgpeojqzcr69[address] [place] [address]Dr. Garima Pulliam CK.MB [Mass/Vol] 10.38 ng/mL Critically high <=3.60 [facility] Comment on above: Performed By: #### C MREP ####[facility] Sfqvxrqvfc7856 [place] [address]Dr. Garima Pulliam HSTROP 18.5 pg/mL Normal 4.0-76.1 [facility] Comment on above: Result Comment: CUT- OFF POINTS HAVE BEEN ESTABLISHED BASED ON THE FOURTH UNIVERSAL DEFINITIONS OF MYOCARDIALINFARCTION. THE UPPER REFERENCE LIMIT (URL) OF TROPONIN, DEFINED THE 99TH PERCENTILE OFcTnI DISTRIBUTION IN A REFERENCE POPULATION, HAS BEEN CONFIRMED THE DECISION THRESHOLDFOR [place] DIAGNOSIS. Performed By: #### C MREP ####[facility] Fhkhrxufye[address] [place] [address]Dr. Garima Pulliam CK [Catalytic activity/Vol] 257 U/L Normal 39-308 [facility] Comment on above: Performed By: #### C MREP ####[facility] Jonomprydg[address] [place], [place] [address]Dr. Garima Pulliam CK.MB [Mass/Vol] 9.89 ng/mL Critically high <=3.60 [facility] Comment on above: Performed By: #### C MREP ####[facility] M[address]geegtne[address] [place], [place] [address]Dr. Garima Pulliam HSTROP 16.9 pg/mL Normal 4.0-76.1 [facility] Comment on above: Result Comment: CUT- OFF POINTS HAVE BEEN ESTABLISHED BASED ON THE FOURTH UNIVERSAL DEFINITIONS OF MYOCARDIALINFARCTION. THE UPPER REFERENCE LIMIT (URL) OF TROPONIN, DEFINED THE 99TH PERCENTILE OFcTnI DISTRIBUTION IN A REFERENCE POPULATION, HAS BEEN CONFIRMED THE DECISION THRESHOLDFOR [place] DIAGNOSIS. Performed By: #### C MREP ####[facility] Tzcwwcdvip38[address] [place] [address]Dr. Garima Heraclio CBC AUTO DIFFon 10-22-2022 BASO # 0.0 103/ul Normal 0.0-0.1 [facility] Comment on above: Performed By: #### C BC ####[facility] Qhvnkqbojm8208 [place] [id number]. Garima Pulliam Basophils/100 WBC (Bld) 0.1 % Critically low 0.2-2.0 [facility] Comment on above: Performed By: #### C BC ####[facility] Lwbrlmybrf5549 [place] [address]Dr. Garima Pulliam EO # 0.0 103/ul Normal 0.0-0.7 [facility] Comment on above: Performed By: #### C BC ####[facility] Nraxqmtnlq[address] [place], [place] [address]Dr. Chapisrenu Heraclio Eosinophils/100 WBC (Bld) 0.0 % Critically low 0.9-7.0 [facility] Comment on above: Performed By: #### C BC ####[facility] Ixvcqrxzpr[address] [place], [place] [address]Dr. Garima Pulliam Erythrocyte distribution width (RBC) [Ratio] 13.6 % Normal 11.0-15.0 [facility] Comment on above: Performed By: #### C BC ####[facility] Zxffasayxx79[address] [place], [place] [address]Dr. Garima Pulliam Hematocrit (Bld) [Volume fraction] 48.2 % Normal 42.0-54.0 [facility] Comment on above: Performed By: #### C BC ####[facility] Ltfbthwxdy[address] [place], [place] [address]Dr. Garima Pulliam Hemoglobin (Bld) [Mass/Vol] 16.0 g/dL Normal 14.0-18.0 [facility] Comment on above: Performed By: #### C BC ####[facility] Pfeaixyywe[address] [place], [place] [address]Dr. Chapisrenu Heraclio IG # 0.02 10e3/ul Normal 0.00-0.03 [facility] Comment on above: Performed By: #### C BC ####[facility] Osyonhkkln8[address] [place] [id number]. Garima Pulliam IG % 0.3 % Normal 0.0-0.5 [facility] Comment on above: Performed By: #### C BC ####[facility] Tpnzoawomh8181 [place] [address]Dr. Garima Heraclio LYMPH # 0.5 103/ul Critically low 1.2-3.[address] [facility] Comment on above: Performed By: #### C BC ####[facility] Cyqhwgutyp9678 [place] [address]Dr. Garima Heraclio Lymphocytes/100 WBC (Bld) 7.7 % Critically low 20.5-60.0 [facility] Comment on above: Performed By: #### C BC ####[facility] G[address]qnrkjr[address] [place], [place] [address]Dr. Chapisrenu Pulliam MANUAL DIFF REQ NO Normal [facility] Comment on above: Performed By: #### C BC ####[facility] Y[address]hmhslz[address] [place], [place] [address]Dr. Garima Heraclio MCH (RBC) [Entitic mass] 30.6 pg Normal 25.9-34.0 [facility] Comment on above: Performed By: #### C BC ####[facility] Gkwfdlilou[address] [place], [place] [address]Dr. Garima Pulliam MCHC (RBC) [Mass/Vol] 33.2 g/dL Normal 29.9-35.2 [facility] Comment on above: Performed By: #### C BC ####[facility] Nghffubgri[address] [place], [place] [address]Dr. Garima Heraclio MCV (RBC) [Entitic vol] 92.2 fL Normal 80.0-94.0 [facility] Comment on above: Performed By: #### C BC ####[facility] Othgwfhppw[address] [place], [place] [address]Dr. Garima Pulliam MONO # 0.0 103/ul Critically low 0.3-0.[address] [facility] Comment on above: Performed By: #### C BC ####[facility] Rmyrkopgsm4401 [place] [id number]. Garima Pulliam Monocytes/100 WBC (Bld) 0.4 % Critically low 1.7-12.0 [facility] Comment on above: Performed By: #### C BC ####[facility] Ukovrvtkto[address] [place] [id number]. Garima Pulliam NEUT # 6.2 103/ul Normal 1.4-6.5 [facility] Comment on above: Performed By: #### C BC ####[facility] Ejvqmxdeal2787 [place] [address]Dr. Garima Pulliam Neutrophils/100 WBC (Bld) 91.5 % Critically high 43.0-75.0 [facility] Comment on above: Performed By: #### C BC ####[facility] Cussfaxgnw[address] [place] [address]Dr. Garima Pulliam Platelet mean volume (Bld) [Entitic vol] 8.7 fL Critically low 9.5-13.5 [facility] Comment on above: Performed By: #### C BC ####[facility] [address] [place] [address]Dr. Garima Pulliam PLT 179 103/ul Normal 150-450 [facility] Comment on above: Performed By: #### C BC ####[facility] [address] [place] [id number]. Garima Pulliam RBC 5.23 106/ul Normal 4.70-6.10 [facility] Comment on above: Performed By: #### C BC ####[facility] [address] [place] [address]Dr. Garima Pulliam WBC 6.7 103/ul Normal 4.0-11.0 [facility] Comment on above: Performed By: #### C BC ####[facility] [address] [place] [address]Dr. Garima Pulliam PROF CHEM 8 (BAS METB)on Anion gap [Moles/Vol] 12.1 mmol/L Normal [facility] Comment on above: Performed By: #### B MP ####[facility] [address] [place] [id number]. Garima Pulliam Calcium [Mass/Vol] 8.7 mg/dL Normal 8.5-10.1 The [facility] Comment on above: Performed By: #### B MP ####[facility] [address] [place] [id number]. Garima Pulliam Chloride [Moles/Vol] 105 mmol/L Normal 98-107 [facility] Comment on above: Performed By: #### B MP ####[facility] [address]olwh[address] [place] [id number]. Garima Pulliam CO2 [Moles/Vol] 25.5 mmol/L Normal 21.0-32.0 [facility] Comment on above: Performed By: #### B MP ####[facility] [address] [place] [address]Dr. Garima Pulliam Creatinine [Mass/Vol] 0.63 mg/dL Critically low 0.70-1.30 [facility] Comment on above: Performed By: #### B MP ####[facility] [address] [place] [address]Dr. Garima Pulliam EGFR-AF TURKISH >60 Normal >=60 [facility] Comment on above: Performed By: #### B MP ####[facility] [address]br[address] [place] [address]Dr. Garima Pulliam EGFR-NON AF TURKISH >60 Normal >=60 [facility] Comment on above: Performed By: #### B MP ####[facility] [address] [place] [address]Dr. Garima Pulliam Glucose [Mass/Vol] 162 mg/dL Critically high 74-106 [facility] Comment on above: Performed By: #### B MP ####[facility] [address] [place], [place] [address]Dr. Garima Pulliam Potassium [Moles/Vol] 3.6 mmol/L Normal 3.5-5.1 [facility] Comment on above: Performed By: #### B MP ####[facility] [address] [place], [place] [address]Dr. Garima Pulliam Sodium [Moles/Vol] 139 mmol/L Normal 136-145 [facility] Comment on above: Performed By: #### B DAVID ####[facility] [address] [place] [address]Dr. Garima Pulliam Urea nitrogen [Mass/Vol] 9.0 mg/dL Normal 7.0-18.0 [facility] Comment on above: Performed By: #### B DAVID ####[facility] [address] [place] [address]Dr. Garima Pulliam Urea nitrogen/Creatinine [Mass ratio] 14.3 mg/mg Normal [facility] Comment on above: Performed By: #### B DAVID ####[facility] [address] [place] [address]Dr. Chapisrenu Pulliam CARDIAC NASH ADMITon 09-12- 022 CK [Catalytic activity/Vol] 304 U/L Normal 39-308 [facility] Comment on above: Performed By: #### B NANCY HERNANDEZ ####[facility] [address] [place] [address]Dr. Garima Pulliam CK.MB [Mass/Vol] 11.81 ng/mL Critically high <=3.60 Th [facility] Comment on above: Performed By: #### B NANCY HERNANDEZ ####[facility] [address]fts[address] [place] [address]Dr. Garima Heraclio HSTROP 13.3 pg/mL Normal 4.0-76.1 [facility] Comment on above: Result Comment: CUT- OFF POINTS HAVE BEEN ESTABLISHED BASED ON THE FOURTH UNIVERSAL DEFINITIONS OF MYOCARDIALINFARCTION. THE UPPER REFERENCE LIMIT (URL) OF TROPONIN, DEFINED THE 99TH PERCENTILE OFcTnI DISTRIBUTION IN A REFERENCE POPULATION, HAS BEEN CONFIRMED THE DECISION THRESHOLDFOR MO DIAGNOSIS. Performed By: #### B NANCY HERNANDEZ ####[facility] [address] [place] [address]Dr. Garima Pulliam DORIS 133 ng/mL Critically high 16-96 [facility] Comment on above: Performed By: #### B NANCY HERNANDEZ ####[facility] [address] [place] [address]Dr. Garima Pulliam CBC AUTO DIFFon 09-12-2022 BASO # 0.0 103/ul Normal 0.0-0.1 [facility] Comment on above: Performed By: #### C BC ####[facility] [address] [place], [place] [address]Dr. Garima Heraclio Basophils/100 WBC (Bld) 0.2 % Normal 0.2-2.0 [facility] Comment on above: Performed By: #### C BC ####[facility] [address] [place], [place] [address]Dr. Garima Heraclio EO # 0.2 103/ul Normal 0.0-0.7 [facility] Comment on above: Performed By: #### C BC ####[facility] [address]fktl[address] [place], [place] [address]Dr. Chapisrenu Pulliam Eosinophils/100 WBC (Bld) 1.3 % Normal 0.9-7.0 [facility] Comment on above: Performed By: #### C BC ####[facility] [address] [place], [place] [address]Dr. Garima Pulliam Erythrocyte distribution width (RBC) [Ratio] 13.7 % Normal 11.0-15.0 [facility] Comment on above: Performed By: #### C BC ####[facility] [address] [place], [place] [address]Dr. Garima Pulliam Hematocrit (Bld) [Volume fraction] 46.4 % Normal 42.0-54.0 [facility] Comment on above: Performed By: #### C BC ####[facility] [address] [place], [place] [address]Dr. Garima Pulliam Hemoglobin (Bld) [Mass/Vol] 15.7 g/dL Normal 14.0-18.0 [facility] Comment on above: Performed By: #### C BC ####[facility] [address] [place], [place] [address]Dr. Garima Pulliam IG # 0.04 10e3/ul Critically high 0.00-0.03 [facility] Comment on above: Performed By: #### C BC ####[facility] [address] [place] [id number]. Garima Pulliam IG % 0.3 % Normal 0.0-0.5 [facility] Comment on above: Performed By: #### C BC ####[facility] [address] [place] [id number]. Garima Pulliam LYMPH # 1.7 103/ul Normal 1.2-3.8 [facility] Comment on above: Performed By: #### C BC ####[facility] [address]cyoswr[address] [place] [id number]. Garima Pulliam Lymphocytes/100 WBC (Bld) 11.5 % Critically low 20.5-60.0 [facility] Comment on above: Performed By: #### C BC ####[facility] [address] [place] [id number]. Garima Pulliam MANUAL DIFF REQ NO Normal [facility] Comment on above: Performed By: #### C BC ####[facility] [address] [place] [id number]. Garima Pulliam MCH (RBC) [Entitic mass] 31.0 pg Normal 25.9-34.0 [facility] Comment on above: Performed By: #### C BC ####[facility] [address] [place] [id number]. Garima Pulliam MCHC (RBC) [Mass/Vol] 33.8 g/dL Normal 29.9-35.2 [facility] Comment on above: Performed By: #### C BC ####[facility] [address] [place] [id number]. Garima Pulliam MCV (RBC) [Entitic vol] 91.7 fL Normal 80.0-94.0 [facility] Comment on above: Performed By: #### C BC ####[facility] [address] [place] [id number]. Garima Heraclio MONO # 0.8 103/ul Normal 0.3-0.8 [facility] Comment on above: Performed By: #### C BC ####[facility] [address] [place] [id number]. Garima Pulliam Monocytes/100 WBC (Bld) 5.2 % Normal 1.7-12.0 [facility] Comment on above: Performed By: #### C BC ####[facility] [address] [place] [id number]. Garima Pulliam NEUT # 11.7 103/ul Critically high 1.4-6.5 [facility] Comment on above: Performed By: #### C BC ####[facility] [address] [place] [id number]. Garima Pulliam Neutrophils/100 WBC (Bld) 81.5 % Critically high 43.0-75.0 [facility] Comment on above: Performed By: #### C BC ####[facility] [address] [place] [address]Dr. Garima Pulliam Platelet mean volume (Bld) [Entitic vol] 8.6 fL Critically low 9.5-13.5 [facility] Comment on above: Performed By: #### C BC ####[facility] [address]ch[address] [place] [id number]. Garima Pulliam PLT 191 103/ul Normal 150-450 [facility] Comment on above: Performed By: #### C BC ####[facility] [address] [place], [place] [address]Dr. Garima Pulliam RBC 5.06 106/ul Normal 4.70-6.10 [facility] Comment on above: Performed By: #### C BC ####[facility] [address] [place], [place] [address]Dr. Garima Pulliam WBC 14.4 103/ul Critically high 4.0-11.0 [facility] Comment on above: Performed By: #### C BC ####[facility] [address] [place], [place] [address]Dr. Garima Pulliam [facility]24 SARS-CoV-2 (COVID-19) RNA MARIE+probe Ql (Unsp spec) Not detected Normal NOT DETECTED [facility] Comment on above: Result Comment: When [...] for this test is supported by the [place] of Health and Human Service's declaration that [...] Performed By: #### C VDTBH ####[facility] [address] [place], [place] [address]Dr. Garima Pulliam LACTATE/LACTIC ACIDon 2021 Lactate [Moles/Vol] 1.0 mmol/L Normal 0.4-1.9 [facility] Comment on above: Performed By: #### L ACT ####[facility] [address] [place], [place] [address]Dr. Garima Pulliam PROF CHEM 8 (BAS METB)on Anion gap [Moles/Vol] 11.6 mmol/L Normal [facility] Comment on above: Performed By: #### B NANCY HERNANDEZ ####[facility] [address] [place] [address]Dr. Garima Pulliam Calcium [Mass/Vol] 9.2 mg/dL Normal 8.5-10.1 [facility] Comment on above: Performed By: #### B NANCY HERNANDEZ ####[facility] [address] [place] [address]Dr. Garima Pulliam Chloride [Moles/Vol] 105 mmol/L Normal 98-107 [facility] Comment on above: Performed By: #### B MP, CMADM ####[facility] [address] [place] [id number]. Garima Pulliam CO2 [Moles/Vol] 25.9 mmol/L Normal 21.0-32.0 [facility] Comment on above: Performed By: #### B DAVID, CMADM ####[facility] [address] [place] [address]Dr. Garima Pulliam Creatinine [Mass/Vol] 0.72 mg/dL Normal 0.70-1.30 [facility] Comment on above: Performed By: #### B DAVID, CMADM ####[facility] [address] [place] [id number]. Garima Pulliam EGFR-AF TURKISH >60 Normal >=60 [facility] Comment on above: Performed By: #### B DAVID, CMADM ####[facility] [address] [place] [address]Dr. Chapisrenu Pulliam EGFR-NON AF TURKISH >60 Normal >=60 [facility] Comment on above: Performed By: #### B DAVID, CMAANA ROSA ####[facility] [address] [place] [address]Dr. Garima Pulliam Glucose [Mass/Vol] 111 mg/dL Critically high 74-106 [facility] Comment on above: Performed By: #### B DAVID, CMADM ####[facility] [address] [place] [address]Dr. Chapisrenu Pulliam Potassium [Moles/Vol] 3.5 mmol/L Normal 3.5-5.1 [facility] Comment on above: Performed By: #### B DAVID, CMADM ####[facility] [address] [place] [address]Dr. Chapisrenu Pulliam Sodium [Moles/Vol] 139 mmol/L Normal 136-145 [facility] Comment on above: Performed By: #### B DAVID, CMADM ####[facility] [address] [place] [address]Dr. Garima Pulliam Urea nitrogen [Mass/Vol] 7.0 mg/dL Normal 7.0-18.0 [facility] Comment on above: Performed By: #### B DAVID, CMADM ####[facility] [address] [place], [place] [address]My. Garima Pulliam Urea nitrogen/Creatinine [Mass ratio] 9.7 mg/mg Normal [facility] Comment on above: Performed By: #### B MP, CMADM ####[facility] [address] [place], [place] [address]Fu. Garima Pulliam XR CHEST 1 Von 09-12-2022 XR CHEST 1 V Normal [facility] Encounters Encounter Date Encounter Type Care Provider Facility Start: 04-04-2023 End: 04-05-2023 ambulatory KENTRELL CHAPIN Facility:[facility] Start: 03-30-2023 End: 03-31-2023 ambulatory KENTRELL CHAIPN Facility:[facility] Start: 03-27-2023 End: 03-28-2023 ambulatory OTONIEL [...] Facility:[facility] Payers Date Payer Category Payer Unknown [id number] 1960 Medicaid [id number] 1960 Unknown [id number] 1960 Unknown [id number] 1954 Unknown [id number] 2.16.84 0.1.796568.3.579.2.593 1954 Unknown [id number] 2.16.84 0.1.538046.3.579.2.593 1954 Unknown [id number] 2.16.84 0.1.851116.3.579.2.593 1954 Unknown [id number] 2.16.84 0.1.763876.3.579.2.593 1954 Unknown [id number] 2.16.84 0.1.640369.3.579.2.593 1954 Unknown [id number] 2.16.84 0.1.584401.3.579.2.593 1954 Unknown [id number] 2.16.84 0.1.191284.3.579.2.593 1954 Unknown [id number] 2.16.84 0.1.769011.3.579.2.593 1954 Unknown [id number] 2.16.84 0.1.840104.3.579.2.593 1954 Unknown [id number] 2.16.84 0.1.799931.3.579.2.593 1954 Unknown [id number] 2.16.84 0.1.169180.3.579.2.593 1954 Unknown [id number] 2.16.84 0.1.845548.3.579.2.593 1954 Unknown [id number] 2.16.84 0.1.942565.3.579.2.593 1954 Unknown [id number] 2.16.84 0.1.454080.3.579.2.593 1954 Unknown [id number] 2.16.84 0.1.222140.3.579.2.593 1954 Unknown [id number] 2.16.84 0.1.177076.3.579.2.593 1954 Unknown [id number] 2.16.84 0.1.879226.3.579.2.593 1954 Unknown [id number] 2.16.84 0.1.995178.3.579.2.593 1954 Unknown [id number] 2.16.84 0.1.486372.3.579.2.593 1954 Unknown [id number] 2.16.84 0.1.826464.3.579.2.593 Summary Purpose Family History No Family History Records Found Advance Directives No Advanced Directives Records Found Additional Source Comments (unrecognized sect ion and content) No Status Records Found INFORMATION SOURCE (unrecogn ized section and content) DATE CREATED AUTHOR 04/08/2023 [facility] FOR RECORDS PERTAINING TO [...] BE BASED ON THE PRIMARY CLINICAL RECORDS. [facility]. provides no warranty or guarantee of the accuracy or completeness of information in this document.
[2024-06-12] MEDS: IPRATROPIUM/ALBUTEROL SULFATE 3 ML AMPUL.NEB IH (13:32)
[2024-06-12 13:33] VITALS: PULSE 69; O2SAT 96
[2024-06-12] MEDS: PREDNISONE 20 MG TABLET 40 MG PO (13:51)
--- NOTE | 2024-06-12 14:11 | ED.SOB1 ---
HPI - SOB/Dyspnea General Chief Complaint: Shortness of Breath/Dyspnea Stated Complaint: COPD Time Seen by Provider: 06/12/24 13:12 Mode of arrival: walk-in Limitations: no limitations History of Present Illness HPI Narrative: Patient coming to the ER with a frequent presentation of shortness of breath after smoking cigarettes, he mentioned that he has been coughing more for the last few days although he mentioned that it is nonproductive. He dropped a smoking cigarette before arrival The patient follow-up with the [facility] and he mentioned that he mostly will need to be assessed for oxygen as he is short of breath sometimes with exertion The patient denies any chest pain nausea vomiting and he does not have any distress while sitting down Related Data Home Medications ?Medication ?Instructions ?Recorded ?Confirmed albuterol sulfate 90 mcg/actuation 2 inh inhalation Q6H PRN shortness 03/13/24 05/26/24 aerosol inhaler of breath or wheezing Previous Rx's ?Medication ?Instructions ?Recorded losartan 100 mg tablet 100 mg PO DAILY #30 tabs 12/27/23 albuterol sulfate 2.5 mg/3 mL 2.5 mg (3 mL) inhalation Q6H PRN 05/26/24 (0.083 %) solution for nebulization shortness of breath or wheezing #90 mL loratadine 10 mg tablet (Claritin) 10 mg PO DAILY #20 tabs 05/30/24 azithromycin 250 mg tablet See Rx Instructions PO .COMPLEX #6 06/12/24 (Zithromax Z-Luis) tabs prednisone 20 mg tablet 40 mg (2 x 20 mg) PO DAILY 5 days 06/12/24 #10 tabs Allergies Allergy/AdvReac Type Severity Reaction Status Date / Time No Known Drug Allergies Allergy Verified 05/30/24 00:40 Review of Systems ROS Status of ROS 10 or more systems reviewed and unremarkable except as noted in history and below [facility] Medical History (Updated 06/12/24 @ 14:12 by Mariam Wan MD) Hypokalemia ?E87.6 - Hypokalemia (ICD-10) New onset type 2 diabetes mellitus ?E11.9 - Type 2 diabetes mellitus without complications (ICD-10) Lower extremity edema ?R60.0 - Localized edema (ICD-10) Edema ?R60.9 - Edema, unspecified (ICD-10) Acute hyperglycemia ?R73.9 - Hyperglycemia, unspecified (ICD-10) Tobacco abuse ?Z72.0 - Tobacco use (ICD-10) HTN (hypertension) ?I10 - Essential (primary) hypertension (ICD-10) Community acquired pneumonia ?J18.9 - Pneumonia, unspecified organism (ICD-10) Chronic obstructive pulmonary disease ?J44.9 - Chronic obstructive pulmonary disease, unspecified (ICD-10) Acute exacerbation of chronic obstructive pulmonary disease (COPD) ?J44.1 - Chronic obstructive pulmonary disease with (acute) exacerbation (ICD-10) RLL pneumonia ?J18.9 - Pneumonia, unspecified organism (ICD-10) COPD (chronic obstructive pulmonary disease) ?J44.9 - Chronic obstructive pulmonary disease, unspecified (ICD-10) Surgical History (Updated 01/29/24 @ 06:45 by Latonia Martin RN) Hx of tonsillectomy ?Z90.89 - Acquired absence of other organs (ICD-10) Family History (Updated 12/25/23 @ 21:28 by Kym Ordaz) Mother Family history of cancer Family history of hypertension Father Family history of cancer Social History Within the past year, how often did you have a drink containing alcohol: 4 or more times a week Within the past year, how many standard drinks containing alcohol did you have on a typical day: 3 or 4 Within the past year, how often did you have six or more drinks on one occasion: less than monthly Total score: 3 Score interpretation: A score of 4 or more indicates drinking is likely to affect patient's safety. Smoking status: Current every day smoker Non-prescribed substance use: cannabis (any form) Previous occupational history: retired Highest level of school completed/degree received: high school graduate Are you now , , , , never or living with a partner: In a typical week, how many times do you talk on the telephone with family, friends, or neighbors: twice per week How often do you get together with friends or relatives: once per week How often do you attend alevism or nondenominational services: never Do you belong to any clubs or organizations such as alevism groups unions, fraternal or athletic groups, or school groups: no Total score: 1 Score interpretation: A score of less than or equal to 1 indicates the most socially isolated. Little interest or pleasure in doing things: several days Feeling down, depressed, or hopeless: not at all Feel stressed/tense/nervous/anxious/difficulty sleeping: not at all Do you think of yourself as: straight/heterosexual Gender Identity: male Exam Narrative Exam Narrative: Nurses notes and vital signs reviewed and patient is not hypoxic. General: Well-appearing and in no apparent distress. Skin: Warm, dry, no pallor noted. No rash. Head: Normocephalic, atraumatic. Neck: Supple, non-tender. Eye: Pupils are equal, round and EOMI. No scleral icterus. Ears, Nose, Mouth, and Throat: TM are clear, no nasal mucosal hypertrophy. Oral mucosa is moist, no posterior oropharynx erythema, uvula is mid-line Cardiovascular: Regular Rate and Rhythm without murmur, gallop or rub. Respiratory: Lungs are distant breathing sounds bilaterally Chest Wall: no tenderness Back: No midline thoracic or lumbar vertebral tenderness. No CVA tenderness Musculoskeletal: normal ROM, no calf or popliteal tenderness, no lower extremity edema/swelling GI: Abdomen is soft, non-distended. Normal bowel sounds. No masses appreciated. No tenderness to palpation. No rebound, guarding, or rigidity noted. Neurological: A&O x4. No cranial nerve dysfunction observed. No truncal ataxia. Moves all extremities. Sensation intact. Psychiatric: Cooperative and interactive. Normal mood and affect. Constitutional Vital Signs, click to edit/add: Last Vital Signs Temp 98.2 F 06/12/24 13:02 Pulse 63 06/12/24 14:35 Resp 14 06/12/24 14:35 BP 175/63 H 06/12/24 14:35 Pulse Ox 99 06/12/24 14:35 O2 Del Method Room Air 06/12/24 14:35 Course Vital Signs Vital signs: Vital Signs Temperature 98.2 F 06/12/24 13:02 Pulse Rate 79 06/12/24 13:02 Respiratory Rate 22 H 06/12/24 13:02 Blood Pressure 172/87 H 06/12/24 13:02 Pulse Oximetry 96 06/12/24 13:02 Oxygen Delivery Method Room Air 06/12/24 13:02 Temperature 98.2 F 06/12/24 13:02 Pulse Rate 63 06/12/24 14:35 Respiratory Rate 14 06/12/24 14:35 Blood Pressure 175/63 H 06/12/24 14:35 Pulse Oximetry 99 06/12/24 14:35 Oxygen Delivery Method Room Air 06/12/24 14:35 MDM - SOB/Dyspnea MDM Narrative Medical decision making narrative: The patient presentation is mostly secondary to COPD exacerbation his pulse ox was above 94 when he was sitting The patient was provided with prednisone as well as breathing treatment after which she was feeling much better I did explain to him that if he wants an assessment for hypoxemia I can bring him to the hospital in case his COPD is not controlled and he did not want initially any blood workup and x-ray because he mentioned that he had those before within the last month The patient did had multiple presentation although last presentation was more than 10 days ago Right now the patient was feeling better after being treated with a breathing treatment and prednisone he was discharged home with prednisone as well as Z-Luis The patient is to follow up with primary care physician in next 2-3 days or to return to the emergency department should any of the signs or symptoms worsen or new symptoms develop. The patient agrees with the following Diagnosis and Treatment plan and the patient will be discharged home. Discharge Plan Discharge Stand Alone Forms: Portal Instructions Chief Complaint: Shortness of Breath/Dyspnea Clinical Impression: COPD (chronic obstructive pulmonary disease) Patient Disposition: Home, Self-Care Time of Disposition Decision: 14:12 Condition: Good Prescriptions / Home Meds: New prednisone 20 mg tablet 40 mg PO DAILY 5 Days Qty: 10 0RF azithromycin [Zithromax Z-Luis] 250 mg tablet See Rx Instructions .ROUTE .COMPLEX Qty: 6 0RF Rx Instructions: For 250 mg dose pack: take 500 mg today (day 1), then 250 mg for 4 days (days 2-5) No Action losartan 100 mg tablet 100 mg PO DAILY Qty: 30 11RF albuterol sulfate 90 mcg/actuation HFA aerosol inhaler 2 inh inhalation Q6H PRN (Reason: shortness of breath or wheezing) albuterol sulfate 2.5 mg /3 mL (0.083 %) solution for nebulization 2.5 mg inhalation Q6H PRN (Reason: shortness of breath or wheezing) Qty: 90 0RF loratadine [Claritin] 10 mg tablet 10 mg PO DAILY Qty: 20 0RF Print Language: Latvian Instructions: COPD (Chronic Obstructive Pulmonary Disease) (DC) Referrals: SERG DUENAS [Primary Care Provider] - 1 week Discharge Date/Time: 06/12/24 14:39
[2024-06-12 14:35] VITALS: BP 175/63; PULSE 63; O2SAT 99
== END 2024-06-12 14:39 | disposition home or self-care (01) ==
PROVIDERS: Emergency Provider Emergency Medicine
DX: J44.9 Chronic obstructive pulmonary disease, unspecified (principal); F17.210 Nicotine dependence, cigarettes, uncomplicated
CPT/HCPCS: 80053; 84484; 94640; 99283; J7512

== ENCOUNTER 2024-07-01 17:00 | Emergency (ER) | payer MEDICARE, SELFPAY ==
[2024-07-01 17:03] VITALS: BP 180/80; PULSE 80; TEMP 36.4; O2SAT 95; BMI 23.7
--- OUTSIDE RECORDS SUMMARY | 2024-07-01 17:07 | XMS_ITS | CCD ---
Author Organization [facility] CliniSyky Care Team Providers Care Shoe Worker Name Role Phone REQUEST, DR NONE LISTED [...] TAVARES, KENTRELL Attending Unavailable GRECHNY ., [place]A FXO Consulting Unavailabl e TAVARES, KENTRELL Consulting Unavailable [...] DR NONE LISTED Primary Care Unavaila ble TVAARES, KENTRELL Consulting Unavailable TAVARES, KENTRELL Admitting Unavailable [...] (1 source) Penicillin Drug Allergy 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 Comment on above: Performed By: #### C BC ####[facility] Ahnhamhgnp[address] [place] [address]Dr. Garima Pulliam Basophils/100 WBC (Bld) 0.3 % Normal 0.2-2.[address] [facility] Comment on above: Performed By: #### C BC ####[facility] Zrhcinyutm2204 [place] [address]DrAdalberto Pulliam EO # 0.3 103/ul Normal 0.0-0.[address] [facility] Comment on above: Performed By: #### C BC ####[facility] Tgultojqze[address] [place], [place] [address]Dr. Garima Pulliam Eosinophils/100 WBC (Bld) 2.8 % Normal 0.9-7.[address] [facility] Comment on above: Performed By: #### C BC ####[facility] Jlerkvnfvh0375 [place] [address]Dr. Garima Pulliam Erythrocyte distribution width (RBC) [Ratio] 13.4 % Normal 11.0-15.[address] [facility] Comment on above: Performed By: #### C BC ####[facility] Wiszgmyzjd2082 [place] [address]Dr. Garima Pulliam Hematocrit (Bld) [Volume fraction] 45.7 % Normal 42.0-54.[address] [facility] Comment on above: Performed By: #### C BC ####[facility] Ovbgenjwxw3758 [place] [address]Dr. Garima Pulliam Hemoglobin (Bld) [Mass/Vol] 15.2 g/dL Normal 14.0-18.[address] [facility] Comment on above: Performed By: #### C BC ####[facility] Vadlmxmpsn4768 [place] [address]Dr. Garima Pulliam IG # 0.02 10e3/ul Normal 0.00-0.[address] [facility] Comment on above: Performed By: #### C BC ####[facility] Yqwyztghmc5761 [place] [address]Dr. Garima Pulliam IG % 0.2 % Normal 0.0-0.[address] [facility] Comment on above: Performed By: #### C BC ####[facility] Badruhpwas8525 [place] [address]Dr. Garima Pulliam LYMPH # 2.1 103/ul Normal 1.2-3.[address] [facility] Comment on above: Performed By: #### C BC ####[facility] Qzuersudyw0954 [place] [address]Dr. Garima Pulliam Lymphocytes/100 WBC (Bld) 23.7 % Normal 20.5-60.[address] [facility] Comment on above: Performed By: #### C BC ####[facility] Cnjttjwajk7271 [place] [address]Dr. Garima Heraclio MANUAL DIFF REQ NO Normal [facility] Comment on above: Performed By: #### C BC ####[facility] Lpyyxpvzyc6277 [place] [address]Dr. Garima Pulliam MCH (RBC) [Entitic mass] 30.4 pg Normal 25.9-34.[address] [facility] Comment on above: Performed By: #### C BC ####[facility] Yowutciqoq4062 [place] [address]Dr. Garima Heraclio MCHC (RBC) [Mass/Vol] 33.3 g/dL Normal 29.9-35.[address] [facility] Comment on above: Performed By: #### C BC ####[facility] Ytytvpuruv7[address] [place], [place] [address]Dr. Chapisrenu Pulliam MCV (RBC) [Entitic vol] 91.4 fL Normal 80.0-94.[address] [facility] Comment on above: Performed By: #### C BC ####[facility] Pueprpnbwu[address] [place], [place] [address]Dr. Garima Heraclio MONO # 0.7 103/ul Normal 0.3-0.[address] [facility] Comment on above: Performed By: #### C BC ####[facility] Moempcosqy79[address] [place], [place] [address]Dr. Chapisrenu Pulliam Monocytes/100 WBC (Bld) 8.3 % Normal 1.7-12.[address] [facility] Comment on above: Performed By: #### C BC ####[facility] Tpkvcxlzix0516 [place] [address]Dr. Chapisrenu Heraclio NEUT # 5.8 103/ul Normal 1.4-6.[address] [facility] Comment on above: Performed By: #### C BC ####[facility] Qoziokzlgs9[address] [place], [place] [address]Dr. Garima Pulliam Neutrophils/100 WBC (Bld) 64.7 % Normal 43.0-75.[address] [facility] Comment on above: Performed By: #### C BC ####[facility] Lvtsfndnaz7565 [place] [address]Dr. Garima Pulliam Platelet mean volume (Bld) [Entitic vol] 8.6 fL Critically low 9.5-13.5 [facility] Comment on above: Performed By: #### C BC ####[facility] Jdqboddsgm7944 [place] [address]Dr. Garima Pulliam PLT 230 103/ul Normal 150-[address] [facility] Comment on above: Performed By: #### C BC ####[facility] Riqozvpgnx8126 [place] [address]Dr. Chapisrenu Heraclio RBC 5.00 106/ul Normal 4.70-6.10 [facility] Comment on above: Performed By: #### C BC ####[facility] Oibeaihief3432 [place] [address]Dr. Garima Heraclio WBC 9.0 103/ul Normal 4.0-11.[address] [facility] Comment on above: Performed By: #### C BC ####[facility] Equwtdcwkk9285 [place] [address]Dr. Garima Pulliam MAGNESIUMon 04-04-2023 Magnesium [Mass/Vol] 1.8 mg/dL Normal 1.8-2.4 [facility] Comment on above: Performed By: #### M G ####[facility] Vxnusvbipi8546 [place] [address]Dr. Chapisrenu Pulliam PROF 14(COMP METB)on 023 Albumin [Mass/Vol] 3.8 g/dL Normal 3.4-5.0 [facility] Comment on above: Performed By: #### C MP ####[facility] Ttjiyjyazm5169 [place] [address]Dr. Garima Pulliam Albumin/Globulin [Mass ratio] 1.2 {ratio} Normal [facility] Comment on above: Performed By: #### C MP ####[facility] Ggccfsvkki6028 [place] [address]Dr. Garima Heraclio ALP [Catalytic activity/Vol] 84 U/L Normal 46-[address] [facility] Comment on above: Performed By: #### C MP ####[facility] Xkwrnsagip8398 [place] [id number]. Garima Pulliam ALT [Catalytic activity/Vol] 31 U/L Normal 16-[address] [facility] Comment on above: Performed By: #### C MP ####[facility] Sciqlnfdzq7678 [place] [address]Dr. Garima Pulliam Anion gap [Moles/Vol] 12.2 mmol/L Normal [facility] Comment on above: Performed By: #### C MP ####[facility] Iifjwmdsgk2737 [place] [address]Dr. Garima Pulliam AST [Catalytic activity/Vol] 23 U/L Normal 15-[address] [facility] Comment on above: Performed By: #### C MP ####[facility] Asbhwqozrl534[address] [place], [place] [address]Dr. Garima Pulliam Bilirubin [Mass/Vol] 0.5 mg/dL Normal 0.2-1.[address] [facility] Comment on above: Performed By: #### C MP ####[facility] Mwjsuwhaph733[address] [place], [place] [address]Dr. Garima Pulliam Calcium [Mass/Vol] 9.2 mg/dL Normal 8.5-10.1 [facility] Comment on above: Performed By: #### C MP ####[facility] Vaavgkacqo33[address] [place], [place] [address]Dr. Garima Pulliam Chloride [Moles/Vol] 103 mmol/L Normal 98-[address] [facility] Comment on above: Performed By: #### C MP ####[facility] Mkzfykwbcm6501 [place] [address]Dr. Garima Pulliam CO2 [Moles/Vol] 28.5 mmol/L Normal 21.0-32.0 [facility] Comment on above: Performed By: #### C MP ####[facility] Vkeywuxcxh[address] [place], [place] [address]Dr. Garima Pulliam Creatinine [Mass/Vol] 0.74 mg/dL Normal 0.70-1.30 [facility] Comment on above: Performed By: #### C MP ####[facility] Xujzhyozmu4699 [place] [id number]. Garima Pulliam EGFR-AF ITALIAN >60 Normal >=60 [facility] Comment on above: Performed By: #### C MP ####[facility] Rjhsdgsfqw9214 [place] [address]Dr. Garima Heraclio EGFR-NON AF ITALIAN >60 Normal >=[address] [facility] Comment on above: Performed By: #### C MP ####[facility] Rthaceqjuh1803 [place] [phone]. Garima Heraclio Globulin (S) [Mass/Vol] 3.1 g/dL Normal [facility] Comment on above: Performed By: #### C MP ####[facility] Fzoolccles89[address] [place], [place] [address]Dr. Garima Heraclio Glucose [Mass/Vol] 93 mg/dL Normal 74-106 [facility] Comment on above: Performed By: #### C MP ####[facility] Kdqzcajxiw212[address] [place], [place] [address]Dr. Garima Heraclio Potassium [Moles/Vol] 3.7 mmol/L Normal 3.5-5.[address] [facility] Comment on above: Performed By: #### C MP ####[facility] Nkwectkhfi59[address] [place], [place] [address]Dr. Garima Heraclio Protein [Mass/Vol] 6.9 g/dL Normal 6.4-8.2 [facility] Comment on above: Performed By: #### C MP ####[facility] Zcvirtubcp470[address] [place], [place] [address]Dr. Graima Heraclio Sodium [Moles/Vol] 140 mmol/L Normal 136-145 [facility] Comment on above: Performed By: #### C MP ####[facility] Qpunineyiq7316[address] [place], [place] [address]Dr. Garima Pulliam Urea nitrogen [Mass/Vol] 8.0 mg/dL Normal 7.0-18.[address] [facility] Comment on above: Performed By: #### C MP ####[facility] Agqcnvicry767[address] [place], [place] [address]Dr. Garima Pulliam Urea nitrogen/Creatinine [Mass ratio] 10.8 mg/mg Normal [facility] Comment on above: Performed By: #### C DAVID ####[facility] Lqxzhnocya5432 [place] [address]Dr. Garima Pulliam AMMONIAon 03-30-2023 Ammonia (P) [Moles/Vol] 11 umol/L Normal 11-[address] [facility] Comment on above: Performed By: #### A MM ####[facility] Dzoerjccpv76[address] [place], [place] [address]Dr. Garima Pulliam CARDIAC NASH ADMITon 023 CK [Catalytic activity/Vol] 232 U/L Normal 39-[address] [facility] Comment on above: Performed By: #### C NANCY HERNANDEZ ####[facility] Xxpkuhcylh6475 [place] [address]Dr. Chapisrenu Pulliam CK.MB [Mass/Vol] 4.83 ng/mL Critically high <=3.[address] [facility] Comment on above: Performed By: #### C NANCY HERNANDEZ ####[facility] Cmwexethmn[address] [place], [place] [address]Dr. Garima Pulliam HSTROP 10.5 pg/mL Normal 4.0-76.[address] [facility] Comment on above: Result Comment: CUT- OFF POINTS HAVE BEEN ESTABLISHED BASED ON THE FOURTH UNIVERSAL DEFINITIONS OF MYOCARDIALINFARCTION. THE UPPER REFERENCE LIMIT (URL) OF TROPONIN, DEFINED THE 99TH PERCENTILE OFcTnI DISTRIBUTION IN A REFERENCE POPULATION, HAS BEEN CONFIRMED THE DECISION THRESHOLDFOR [place] DIAGNOSIS. Performed By: #### C NANCY HERNANDEZ ####[facility] Inoqojzuve358[address] [place], [place] [address]Dr. Garima Heraclio DORIS 79 ng/mL Normal 16-[address] [facility] Comment on above: Performed By: #### C NANCY HERNANDEZ ####[facility] Dadoanpjkn[address] [place], [place] [address]Dr. Garima Heraclio CBC AUTO DIFFon 03-30-2023 BASO # 0.0 103/ul Normal 0.0-0.[address] [facility] Comment on above: Performed By: #### C BC ####[facility] Cfdeczrxav6449 [place] [id number]. Garima Pulliam Basophils/100 WBC (Bld) 0.1 % Critically low 0.2-2.[address] [facility] Comment on above: Performed By: #### C BC ####[facility] Gjfninrjxg6647 [place] [id number]. Garima Pulliam EO # 0.3 103/ul Normal 0.0-0.[address] [facility] Comment on above: Performed By: #### C BC ####[facility] Xxkswcaxhw[address] [place], [place] [address]Dr. Garima Pulliam Eosinophils/100 WBC (Bld) 3.3 % Normal 0.9-7.[address] [facility] Comment on above: Performed By: #### C BC ####[facility] Qdywuqcihl17[address] [place], [place] [address]Dr. Garima Pulliam Erythrocyte distribution width (RBC) [Ratio] 13.5 % Normal 11.0-15.[address] [facility] Comment on above: Performed By: #### C BC ####[facility] Yiqrpxeeby14[address] [place], [place] [address]Dr. Garima Pulliam Hematocrit (Bld) [Volume fraction] 42.9 % Normal 42.0-54.[address] [facility] Comment on above: Performed By: #### C BC ####[facility] Fotxsllvcp9[address] [place], [place] [address]Dr. Garima Pulliam Hemoglobin (Bld) [Mass/Vol] 13.9 g/dL Critically low 14.0-18.[address] [facility] Comment on above: Performed By: #### C BC ####[facility] Ayzxrstesf2678 [place] [id number]. Garima Pulliam IG # 0.01 10e3/ul Normal 0.00-0.[address] [facility] Comment on above: Performed By: #### C BC ####[facility] [address]qvytjzrgq[address] [place], [place] [address]Dr. Garima Pulliam IG % 0.1 % Normal 0.0-0.[address] [facility] Comment on above: Performed By: #### C BC ####[facility] Cxsvckuzhx7665 [place] [id number]. Garima Pulliam LYMPH # 1.7 103/ul Normal 1.2-3.[address] [facility] Comment on above: Performed By: #### C BC ####[facility] Sygufwnwaj8638 [place], [place] [address]Jo. Garima Pulliam Lymphocytes/100 WBC (Bld) 22.8 % Normal 20.5-60.[address] [facility] Comment on above: Performed By: #### C BC ####[facility] Jbmoyheyai0800 [place] [id number]. Garima Heraclio MANUAL DIFF REQ NO Normal [facility] Comment on above: Performed By: #### C BC ####[facility] Hpvdxfanks4901 [place] [id number]. Garima Heraclio MCH (RBC) [Entitic mass] 30.5 pg Normal 25.9-34.[address] [facility] Comment on above: Performed By: #### C BC ####[facility] Grfboxvckh9645 [place] [id number]. Garima Pulliam MCHC (RBC) [Mass/Vol] 32.4 g/dL Normal 29.9-35.[address] [facility] Comment on above: Performed By: #### C BC ####[facility] Ieoknpkqdz9275 [place] [id number]. Garima Heraclio MCV (RBC) [Entitic vol] 94.1 fL Critically high 80.0-94.[address] [facility] Comment on above: Performed By: #### C BC ####[facility] Msxxgdzqho7580 [place] [id number]. Garima Heraclio MONO # 0.7 103/ul Normal 0.3-0.[address] [facility] Comment on above: Performed By: #### C BC ####[facility] Oulnlwcuow1004 [place] [address]Dr. Garima Heraclio Monocytes/100 WBC (Bld) 8.6 % Normal 1.7-12.[address] [facility] Comment on above: Performed By: #### C BC ####[facility] Iuympoohqo9529 [place] [id number]. Garima Pulliam NEUT # 4.9 103/ul Normal 1.4-6.[address] [facility] Comment on above: Performed By: #### C BC ####[facility] Wanumbycpv5362 [place] [address]Dr. Garima Pulliam Neutrophils/100 WBC (Bld) 65.1 % Normal 43.0-75.[address] [facility] Comment on above: Performed By: #### C BC ####[facility] Eugqkuspxm3809 [place] [id number]. Garima Pulliam Platelet mean volume (Bld) [Entitic vol] 8.5 fL Critically low 9.5-13.5 [facility] Comment on above: Performed By: #### C BC ####[facility] Ewswieehnc1543 [place] [id number]. Garima Pulliam PLT 219 103/ul Normal 150-[address] [facility] Comment on above: Performed By: #### C BC ####[facility] Jdjqeenxyd2205 [place] [id number]. Garima Pulliam RBC 4.56 106/ul Critically low 4.70-6.10 [facility] Comment on above: Performed By: #### C BC ####[facility] Dsndrggamf5438 [place] [id number]. Garima Pulliam WBC 7.6 103/ul Normal 4.0-11.[address] [facility] Comment on above: Performed By: #### C BC ####[facility] Ctkoloidby7068 [place] [id number]. Garima Pulliam LACTATE/LACTIC ACIDon 2022 Lactate [Moles/Vol] 1.2 mmol/L Normal 0.4-2.0 [facility] Comment on above: Performed By: #### L ACT ####[facility] Nmxmviqguk1187 [place] [id number]. Garima Pulliam MAGNESIUMon 03-30-2023 Magnesium [Mass/Vol] 1.8 mg/dL Normal 1.8-2.4 [facility] Comment on above: Performed By: #### M G ####[facility] Cudrvnerqo4098 [place] [address]Dr. Garima Pulliam PROF 14(COMP METB)on 023 Albumin [Mass/Vol] 3.5 g/dL Normal 3.4-5.0 [facility] Comment on above: Performed By: #### C DAVID, CMAANA ROSA ####[facility] Tewgxvtetx5859 [place] [address]Dr. Garima Pulliam Albumin/Globulin [Mass ratio] 1.2 {ratio} Normal [facility] Comment on above: Performed By: #### C DAVID, CMAANA ROSA ####[facility] Jsvkdlnfwq6408 [place] [address]Dr. Garima Pulliam ALP [Catalytic activity/Vol] 85 U/L Normal 46-116 [facility] Comment on above: Performed By: #### C DAVID, CMAANA ROSA ####[facility] Gtlesvtcyh94[address] [place], [place] [address]Dr. Garima Pulliam ALT [Catalytic activity/Vol] 29 U/L Normal 16-63 [facility] Comment on above: Performed By: #### C DAVID, CMAANA ROSA ####[facility] Hmysqkdalm7071 [place] [address]Dr. Garima Pulliam Anion gap [Moles/Vol] 8.0 mmol/L Normal [facility] Comment on above: Performed By: #### C DAVID, CMAANA ROSA ####[facility] Qmifuxrfhu7539 [place] [address]Dr. Garima Pulliam AST [Catalytic activity/Vol] 18 U/L Normal 15-[address] [facility] Comment on above: Performed By: #### C DAVID, CMADM ####[facility] Qtamwprnvh7066 [place] [address]Dr. Garima Pulliam Bilirubin [Mass/Vol] 0.4 mg/dL Normal 0.2-1.[address] [facility] Comment on above: Performed By: #### C DAVID, CMADM ####[facility] Nvrhongfsu5841 [place] [address]Dr. Garima Pulliam Calcium [Mass/Vol] 8.8 mg/dL Normal 8.5-10.1 [facility] Comment on above: Performed By: #### C DAVID, NANCY ####[facility] Gudwkjdgdr2721 [place] [address]Dr. Chapisrenu Pulliam Chloride [Moles/Vol] 108 mmol/L Critically high 98-107 [facility] Comment on above: Performed By: #### C DAVID, NANCY ####[facility] Hyedojsbgq6637 [place] [address]Dr. Garima Pulliam CO2 [Moles/Vol] 29.6 mmol/L Normal 21.0-32.0 [facility] Comment on above: Performed By: #### C NANCY HERNANDEZ ####[facility] Qruedjcmkw2[address] [place], [place] [address]Dr. Garima Pulliam Creatinine [Mass/Vol] 0.77 mg/dL Normal 0.70-1.30 [facility] Comment on above: Performed By: #### C NANCY HERNANDEZ ####[facility] Xrurmznwvi[address] [place], [place] [address]Dr. Garima Heraclio EGFR-AF ITALIAN >60 Normal >=60 [facility] Comment on above: Performed By: #### C NANCY HERNANDEZ ####[facility] Dohyiapdex20[address] [place], [place] [address]Dr. Garima Heraclio EGFR-NON AF ITALIAN >60 Normal >=60 [facility] Comment on above: Performed By: #### C NANCY HERNANDEZ ####[facility] Wswomyyewo0285 [place] [address]Dr. Garima Pulliam Globulin (S) [Mass/Vol] 2.8 g/dL Normal [facility] Comment on above: Performed By: #### C NANCY HERNANDEZ ####[facility] Gcgexdlsrk9083 [place] [address]Dr. Garima Pulliam Glucose [Mass/Vol] 207 mg/dL Critically high 74-106 [facility] Comment on above: Performed By: #### C NANCY HERNANDEZ ####[facility] Poxegheava[address] [place], [place] [address]Dr. Garima Pulliam Potassium [Moles/Vol] 4.6 mmol/L Normal 3.5-5.1 [facility] Comment on above: Performed By: #### C DAVID, NANCY ####[facility] Lbsremmhaz5202 [place] [address]Dr. Garima Pulliam Protein [Mass/Vol] 6.3 g/dL Critically low 6.4-8.[address] [facility] Comment on above: Performed By: #### C DAVID, NANCY ####[facility] Vqnpnulgoj4334 [place] [address]Dr. Garima Pulliam Sodium [Moles/Vol] 141 mmol/L Normal 136-145 [facility] Comment on above: Performed By: #### C DAVID, NANCY ####[facility] Erfopaenwv4004 [place] [address]Dr. Garima Pulliam Urea nitrogen [Mass/Vol] 9.0 mg/dL Normal 7.0-18.0 [facility] Comment on above: Performed By: #### C DAVID, NANCY ####[facility] Xihfcdcgwq8458 [place] [address]Dr. Garima Pulliam Urea nitrogen/Creatinine [Mass ratio] 11.7 mg/mg Normal [facility] Comment on above: Performed By: #### C DAVID, NANCY ####[facility] Dmooysamjx4221 [place] [address]Dr. Garima Pulliam XR CHEST 1 Von 03-30-2023 XR CHEST 1 V Normal [facility] BNPon 03-27-2023 Natriuretic peptide B (Bld) [Mass/Vol] 251.0 pg/mL Normal <=900.0 [facility] Comment on above: Performed By: #### C MP, BNP, LIPID ####[facility] Qixevdwpaf5403 [place] [address]Dr. Garima Pulliam GLYCOHEMOGLOBIN A1Con 2022 ADA RECOMMENDATION SEE BELOW Normal [facility] Comment on above: Result Comment: ADA RECOMMENDED LIMIT 4.0 - 6.0 ADA THERAPEUTIC TARGET < 7.0 ACTION SUGGESTED > 7.0 Performed By: #### A 1C ####[facility] Vnzplfrnvz0796 [place] [address]Dr. Garima Pulliam Glucose [Mass/Vol] 180 mg/dL Normal [facility] Comment on above: Performed By: #### A 1C ####[facility] Ylxzguovvn4[address] [place], [place] [address]Dr. Chapisrenu Pulliam HbA1c (Bld) [Mass fraction] 7.9 % Critically high 4.5-6.2 [facility] Comment on above: Performed By: #### A 1C ####[facility] Jhyuqcfslx[address] [place], [place] [address]Dr. Garima Pulliam HEMOGRAM AND PLATELon 2022 Hematocrit (Bld) [Volume fraction] 45.7 % Normal 42.0-54.0 [facility] Comment on above: Performed By: #### H H ####[facility] Nfcgtbposa679[address] [place], [place] [address]Dr. Garima Pulliam Hemoglobin (Bld) [Mass/Vol] 15.1 g/dL Normal 14.0-18.0 [facility] Comment on above: Performed By: #### H H ####[facility] Yhlimciweo426[address] [place], [place] [address]Dr. Garima Pulliam MCH (RBC) [Entitic mass] 30.0 pg Normal 25.9-34.0 [facility] Comment on above: Performed By: #### H H ####[facility] Ozumpvwadd834[address] [place], [place] [address]Dr. Garima Pulliam MCHC (RBC) [Mass/Vol] 33.0 g/dL Normal 29.9-35.[address] [facility] Comment on above: Performed By: #### H H ####[facility] Ymebulslha9099[address] [place], [place] [address]Dr. Garima Pulliam MCV (RBC) [Entitic vol] 90.7 fL Normal 80.0-94.0 [facility] Comment on above: Performed By: #### H H ####[facility] Sfmpdnhygp39[address] [place], [place] [address]Dr. Garima Pulliam PLT 222 103/ul Normal 150-[address] [facility] Comment on above: Performed By: #### H H ####[facility] Dsuspbdkzk7958 [place] [id number]. Garima Pulliam RBC 5.04 106/ul Normal 4.70-6.10 [facility] Comment on above: Performed By: #### H H ####[facility] Ibtmqftdkm9866 [place] [id number]. Garima Pulliam WBC 8.7 103/ul Normal 4.0-11.0 [facility] Comment on above: Performed By: #### H H ####[facility] Coelbriakq1885 [place] [id number]. Garima Pulliam LIPID PROFILEon 03-27-2023 CHOL-HDL RATIO NORM SEE BELOW Normal [facility] Comment on above: Result Comment: 3.3 - 4.4 LOW RISK 4.4 - 7.1 AVERAGE RISK 7.1 - 11.0 MODERATE RISK >11.0 HIGH RISK Performed By: #### C MP, BNP, LIPID ####[facility] Iurjajgmfr1162 [place] [address]Dr. Garima Pulliam Cholesterol [Mass/Vol] 113 mg/dL Normal <=200 [facility] Comment on above: Performed By: #### C MP, BNP, LIPID ####[facility] Mlucsbiqvk4898 [place] [address]Dr. Garima Pulliam Cholesterol in HDL [Mass/Vol] 51 mg/dL Normal 40-60 [facility] Comment on above: Performed By: #### C MP, BNP, LIPID ####[facility] Kaydfqxihq4234 [place] [address]Dr. Garima Pulliam Cholesterol in LDL [Mass/Vol] 49.8 mg/dL Normal [facility] Comment on above: Performed By: #### C MP, BNP, LIPID ####[facility] Hsjfudrirj[address] [place] [address]Dr. Garima Pulliam Cholesterol.total/Cho lesterol in HDL [Mass ratio] 2.2 {ratio} Normal [facility] Comment on above: Performed By: #### C MP, BNP, LIPID ####[facility] Tpdyakwxoc[address] [place] [address]Dr. Garima Pulliam HDL NORMAL > or = 60 mg/dl - LOW CARDIOVASCULAR RISK <40 mg/dl - HIGH CARDIOVASCULAR RISK Normal [facility] Comment on above: Performed By: #### C MP, BNP, LIPID ####[facility] Ptecxpeiqy[address] [place] [address]Dr. Garima Pulliam LDL CALC NORMAL SEE BELOW Normal [facility] Comment on above: Result Comment: <100 mg/dl OPTIMAL 100 - 129 mg/dl NEAR OR ABOVE OPTIMAL 130 - 159 mg/dl BORDERLINE HIGH 160 - 189 mg/dl HIGH >190 mg/dl VERY HIGH Performed By: #### C MP, BNP, LIPID ####[facility] Awwbtenrii[address] [place] [address]Dr. Garima Pulliam Triglyceride [Mass/Vol] 61 mg/dL Normal <=150 [facility] Comment on above: Performed By: #### C MP, BNP, LIPID ####[facility] Bihjnlclin[address] [place] [address]Dr. Garima Pulliam VLDL CALC 12.2 mg/dL Normal [facility] Comment on above: Performed By: #### C MP, BNP, LIPID ####[facility] Oiphoutwnl[address] [place] [address]Dr. Garima Pulliam PROF 14(COMP METB)on 023 Albumin [Mass/Vol] 3.5 g/dL Normal 3.4-5.0 [facility] Comment on above: Performed By: #### C MP, BNP, LIPID ####[facility] Jegsezzpkm70[address] [place] [address]Dr. Garima Pulliam Albumin/Globulin [Mass ratio] 1.2 {ratio} Normal [facility] Comment on above: Performed By: #### C MP, BNP, LIPID ####[facility] Aefdnhpapj65[address] [place] [address]Dr. Garima Pulliam ALP [Catalytic activity/Vol] 82 U/L Normal 46-116 [facility] Comment on above: Performed By: #### C MP, BNP, LIPID ####[facility] Ahxwafghvr58[address] [place] [address]Dr. Garima Pulliam ALT [Catalytic activity/Vol] 33 U/L Normal 16-63 [facility] Comment on above: Performed By: #### C MP, BNP, LIPID ####[facility] Fautjfikwy[address] [place] [address]Dr. Garima Pulliam Anion gap [Moles/Vol] 9.9 mmol/L Normal [facility] Comment on above: Performed By: #### C MP, BNP, LIPID ####[facility] Zwurelhkrg4508 [place] [address]Dr. Garima Pulliam AST [Catalytic activity/Vol] 24 U/L Normal 15-37 [facility] Comment on above: Performed By: #### C MP, BNP, LIPID ####[facility] Skvfontmed7571 [place] [address]Dr. Garima Pulliam Bilirubin [Mass/Vol] 0.6 mg/dL Normal 0.2-1.0 [facility] Comment on above: Performed By: #### C MP, BNP, LIPID ####[facility] Mhflzfckid79[address] [place] [address]Dr. Garima Pulliam Calcium [Mass/Vol] 9.2 mg/dL Normal 8.5-10.1 [facility] Comment on above: Performed By: #### C MP, BNP, LIPID ####[facility] Bkbodzbhln79[address] [place] [address]Dr. Garima Pulliam Chloride [Moles/Vol] 106 mmol/L Normal 98-[address] [facility] Comment on above: Performed By: #### C MP, BNP, LIPID ####[facility] Rjwfxcnolk3238 [place] [address]Dr. Garima Pulliam CO2 [Moles/Vol] 32.3 mmol/L Critically high 21.0-32.[address] [facility] Comment on above: Performed By: #### C MP, BNP, LIPID ####[facility] Cwlecnmklx76[address] [place] [address]Dr. Garima Pulliam Creatinine [Mass/Vol] 0.70 mg/dL Normal 0.70-1.30 [facility] Comment on above: Performed By: #### C MP, BNP, LIPID ####[facility] Axkexuglsv37[address] [place] [id number]. Garima Pulliam EGFR-AF ITALIAN >60 Normal >=60 [facility] Comment on above: Performed By: #### C MP, BNP, LIPID ####[facility] Yhnqewrgax7418 [place] [id number]. Garima Pulliam EGFR-NON AF ITALIAN >60 Normal >=60 [facility] Comment on above: Performed By: #### C MP, BNP, LIPID ####[facility] Oydiyyevwc1758 [place] [address]Dr. Garima Pulliam Globulin (S) [Mass/Vol] 2.9 g/dL Normal [facility] Comment on above: Performed By: #### C MP, BNP, LIPID ####[facility] Zkftrcfkgo3906 [place] [address]Dr. Garima Pulliam Glucose [Mass/Vol] 111 mg/dL Critically high 74-106 [facility] Comment on above: Performed By: #### C MP, BNP, LIPID ####[facility] Udtrcbzlfp3856 [place] [address]Dr. Garima uPlliam Potassium [Moles/Vol] 4.2 mmol/L Normal 3.5-5.1 [facility] Comment on above: Performed By: #### C MP, BNP, LIPID ####[facility] Fuknyqbsug7883 [place] [address]Dr. Garima Pulliam Protein [Mass/Vol] 6.4 g/dL Normal 6.4-8.2 [facility] Comment on above: Performed By: #### C MP, BNP, LIPID ####[facility] Qumjojqhcr0738 [place] [address]Dr. Garima Pulliam Sodium [Moles/Vol] 144 mmol/L Normal 136-145 [facility] Comment on above: Performed By: #### C MP, BNP, LIPID ####[facility] Cknwtkbebx1613 [place] [address]Dr. Garima Pulliam Urea nitrogen [Mass/Vol] 7.0 mg/dL Normal 7.0-18.[address] [facility] Comment on above: Performed By: #### C MP, BNP, LIPID ####[facility] Upjqadjiwu[address] [place], [place] [address]Dr. Garima Pulliam Urea nitrogen/Creatinine [Mass ratio] 10.0 mg/mg Normal [facility] Comment on above: Performed By: #### C MP, BNP, LIPID ####[facility] Imhfmezeaq13[address] [place], [place] [address]Dr. Garima Pulliam BNPon 03-22-2023 Natriuretic peptide B (Bld) [Mass/Vol] 103.0 pg/mL Normal <=900.[address] [facility] Comment on above: Performed By: #### B LIME SLAKER, BMP ####[facility] Xsusbdkjlw9[address] [place], [place] [address]Dr. Garima Pulliam CBC AUTO DIFFon 03-22-2023 BASO # 0.0 103/ul Normal 0.0-0.[address] [facility] Comment on above: Performed By: #### C BC ####[facility] Wsywjoqljf[address] [place], [place] [address]Dr. Garima Heraclio Basophils/100 WBC (Bld) 0.3 % Normal 0.2-2.[address] [facility] Comment on above: Performed By: #### C BC ####[facility] Asmhwcijaj264[address] [place], [place] [address]Dr. Garima Pulliam EO # 0.2 103/ul Normal 0.0-0.[address] [facility] Comment on above: Performed By: #### C BC ####[facility] Nvjjrdgsdu329[address] [place], [place] [address]Dr. Garima Pulliam Eosinophils/100 WBC (Bld) 2.2 % Normal 0.9-7.[address] [facility] Comment on above: Performed By: #### C BC ####[facility] Lwwtlxczwz8[address] [place], [place] [address]Dr. Garima Pulliam Erythrocyte distribution width (RBC) [Ratio] 13.2 % Normal 11.0-15.[address] [facility] Comment on above: Performed By: #### C BC ####[facility] Hhcsmgpjep9121 [place] [id number]. Garima Pulliam Hematocrit (Bld) [Volume fraction] 43.4 % Normal 42.0-54.[address] [facility] Comment on above: Performed By: #### C BC ####[facility] Ejebiinmsq0586 [place] [address]Dr. Garima Heraclio Hemoglobin (Bld) [Mass/Vol] 14.3 g/dL Normal 14.0-18.[address] [facility] Comment on above: Performed By: #### C BC ####[facility] Alzofmewho8941 [place] [address]Dr. Garima Pulliam IG # 0.02 10e3/ul Normal 0.00-0.[address] [facility] Comment on above: Performed By: #### C BC ####[facility] Akvrwrerkg9366 [place] [address]Dr. Garima Pulliam IG % 0.3 % Normal 0.0-0.[address] [facility] Comment on above: Performed By: #### C BC ####[facility] Vecgdyqegi8812 [place] [address]Dr. Chapisrenu Pulliam LYMPH # 2.0 103/ul Normal 1.2-3.[address] [facility] Comment on above: Performed By: #### C BC ####[facility] Uysungkqmr2372 [place] [address]Dr. Chapisrenu Pulliam Lymphocytes/100 WBC (Bld) 24.8 % Normal 20.5-60.[address] [facility] Comment on above: Performed By: #### C BC ####[facility] Vtouksxiuo5747 [place] [address]Dr. Chapisrenu Pulliam MANUAL DIFF REQ NO Normal [facility] Comment on above: Performed By: #### C BC ####[facility] Owiswnylxq4987 [place] [address]Dr. Garima Heraclio MCH (RBC) [Entitic mass] 30.0 pg Normal 25.9-34.[address] [facility] Comment on above: Performed By: #### C BC ####[facility] Kytrcykwss[address] [place], [place] [address]Dr. Garima Pulliam MCHC (RBC) [Mass/Vol] 32.9 g/dL Normal 29.9-35.[address] [facility] Comment on above: Performed By: #### C BC ####[facility] Diwdhdhouh6244 [place] [id number]. Garima Pulliam MCV (RBC) [Entitic vol] 91.0 fL Normal 80.0-94.[address] [facility] Comment on above: Performed By: #### C BC ####[facility] Mevaqqoufc3072 [place] [id number]. Garima Heraclio MONO # 0.8 103/ul Normal 0.3-0.[address] [facility] Comment on above: Performed By: #### C BC ####[facility] Hotlfbkcgp2868 [place] [address]Dr. Chapisrenu Pulliam Monocytes/100 WBC (Bld) 9.7 % Normal 1.7-12.[address] [facility] Comment on above: Performed By: #### C BC ####[facility] Wtthnbpbdm5004 [place] [address]Dr. Garima Pulliam NEUT # 4.9 103/ul Normal 1.4-6.[address] [facility] Comment on above: Performed By: #### C BC ####[facility] Cwkphjefmu1622 [place] [id number]. Garima Heraclio Neutrophils/100 WBC (Bld) 62.7 % Normal 43.0-75.[address] [facility] Comment on above: Performed By: #### C BC ####[facility] Iqbhwcowyk1618 [place] [id number]. Garima Heraclio Platelet mean volume (Bld) [Entitic vol] 8.8 fL Critically low 9.5-13.[address] [facility] Comment on above: Performed By: #### C BC ####[facility] Uyzjcrqtel0556 [place] [id number]. Garima Heraclio PLT 198 103/ul Normal 150-[address] [facility] Comment on above: Performed By: #### C BC ####[facility] Fybyegoglm1174 [place] [id number]. Garima Heraclio RBC 4.77 106/ul Normal 4.70-6.[address] [facility] Comment on above: Performed By: #### C BC ####[facility] Hoxdhnkwhx2458 [place] [id number]. Garima Heraclio WBC 7.9 103/ul Normal 4.0-11.[address] [facility] Comment on above: Performed By: #### C BC ####[facility] Rxzkkpoekc0273 [place] [id number]. Garima Heraclio D-DIMERon 03-22-2023 D-DIMER 0.85 mg/L FEU Critically high <=0.59 [facility] Comment on above: Performed By: #### D DIM ####[facility] Mtinuztlfa7363 [place] [address]Dr. Garima Pulliam D-DIMER COMMENTS SEE BELOW Normal [facility] Comment on above: Result Comment: Incr eases [...] hospitalization. Performed By: #### D DIM ####[facility] Roenjiggby[address] [place], [place] [address]Dr. Garima Pulliam PROF CHEM 8 (BAS METB)on Anion gap [Moles/Vol] 6.9 mmol/L Normal [facility] Comment on above: Performed By: #### B LIME SLAKER, BMP ####[facility] Rzfptukmkq1957 [place] [address]Dr. Garima Pulliam Calcium [Mass/Vol] 8.9 mg/dL Normal 8.5-10.1 [facility] Comment on above: Performed By: #### B LIME SLAKER, BMP ####[facility] Cvbezobamh8178 [place] [address]Dr. Garima Pulliam Chloride [Moles/Vol] 101 mmol/L Normal 98-107 [facility] Comment on above: Performed By: #### B LIME SLAKER, BMP ####[facility] Vdzvkxacxu33[address] [place], [place] [address]Dr. Chapisrenu Heraclio CO2 [Moles/Vol] 30.7 mmol/L Normal 21.0-32.0 [facility] Comment on above: Performed By: #### B LIME SLAKER, BMP ####[facility] Czeqvtrfzt[address] [place], [place] [address]Dr. Garima Pulliam Creatinine [Mass/Vol] 0.82 mg/dL Normal 0.70-1.30 [facility] Comment on above: Performed By: #### B LIME SLAKER, BMP ####[facility] Mjkdghfntt549[address] [place], [place] [address]Dr. Garima Pulliam EGFR-AF ITALIAN >60 Normal >=60 [facility] Comment on above: Performed By: #### B LIME SLAKER, BMP ####[facility] Cflmdaitaa774[address] [place], [place] [address]Dr. Chapisrenu Heraclio EGFR-NON AF ITALIAN >60 Normal >=60 [facility] Comment on above: Performed By: #### B LIME SLAKER, BMP ####[facility] Mxlaceroxq516[address] [place], [place] [address]Dr. Garima Pulliam Glucose [Mass/Vol] 339 mg/dL Critically high 74-106 [facility] Comment on above: Performed By: #### B LIME SLAKER, BMP ####[facility] Utusetctnf87[address] [place], [place] [address]Dr. Garima Pulliam Potassium [Moles/Vol] 3.6 mmol/L Normal 3.5-5.1 [facility] Comment on above: Performed By: #### B LIME SLAKER, BMP ####[facility] Xnkleszjme038[address] [place], [place] [address]Dr. Garima Pulliam Sodium [Moles/Vol] 135 mmol/L Critically low 136-145 [facility] Comment on above: Performed By: #### B LIME SLAKER, BMP ####[facility] Stvdqyhjql44[address] [place], [place] [address]Dr. Garima Pulliam Urea nitrogen [Mass/Vol] 11.0 mg/dL Normal 7.0-18.[address] [facility] Comment on above: Performed By: #### B LIME SLAKER, BMP ####[facility] Ykjmyuuinv[address] [place], [place] [address]Dr. Garima Pulliam Urea nitrogen/Creatinine [Mass ratio] 13.4 mg/mg Normal [facility] Comment on above: Performed By: #### B LIME SLAKER, BMP ####[facility] Uxtswgfana49[address] [place], [place] [address]Dr. Garima Pulliam US VERONICA DOP LEG BILon 023 US VERONICA DOP LEG BENOIT Normal [facility] BNPon 03-18-2023 Natriuretic peptide B (Bld) [Mass/Vol] 226.0 pg/mL Normal <=900.[address] [facility] Comment on above: Performed By: #### B LIME SLAKER, BMP ####[facility] Usaccinttl9[address] [place], [place] [address]Dr. Garima Pulliam CBC AUTO DIFFon 03-18-2023 BASO # 0.0 103/ul Normal 0.0-0.1 [facility] Comment on above: Performed By: #### C BC ####[facility] Lolakxqaud94[address] [place], [place] [address]Dr. Garima Heraclio Basophils/100 WBC (Bld) 0.2 % Normal 0.2-2.[address] [facility] Comment on above: Performed By: #### C BC ####[facility] Gaixlhesmx976[address] [place], [place] [address]Dr. Garima Pulliam EO # 0.3 103/ul Normal 0.0-0.[address] [facility] Comment on above: Performed By: #### C BC ####[facility] Lreicsqepq1555[address] [place], [place] [address]Dr. Garima Heraclio Eosinophils/100 WBC (Bld) 2.5 % Normal 0.9-7.[address] [facility] Comment on above: Performed By: #### C BC ####[facility] Rkeyapzpcr19[address] [place], [place] [address]Dr. Garima Heraclio Erythrocyte distribution width (RBC) [Ratio] 13.2 % Normal 11.0-15.0 [facility] Comment on above: Performed By: #### C BC ####[facility] Nihusobweo5167 [place] [address]DrAdalberto Pulliam Hematocrit (Bld) [Volume fraction] 45.8 % Normal 42.0-54.0 [facility] Comment on above: Performed By: #### C BC ####[facility] Wblxkbnaqj1581 [place] [address]DrAdalberto Pulliam Hemoglobin (Bld) [Mass/Vol] 15.3 g/dL Normal 14.0-18.[address] [facility] Comment on above: Performed By: #### C BC ####[facility] Nkjjpprghq[address] [place], [place] [address]DrAdalberto Pulliam IG # 0.02 10e3/ul Normal 0.00-0.[address] [facility] Comment on above: Performed By: #### C BC ####[facility] Mistdpupco4[address] [place], [place] [address]DrAdalberto Pulliam IG % 0.2 % Normal 0.0-0.5 [facility] Comment on above: Performed By: #### C BC ####[facility] Krzqskvppm31[address] [place], [place] [address]DrAdalberto Pulliam LYMPH # 1.8 103/ul Normal 1.2-3.[address] [facility] Comment on above: Performed By: #### C BC ####[facility] Zzctubkjca5[address] [place], [place] [address]DrAdalberto Pulliam Lymphocytes/100 WBC (Bld) 18.3 % Critically low 20.5-60.[address] [facility] Comment on above: Performed By: #### C BC ####[facility] Ycepyklwzj79[address] [place], [place] [address]DrAdalberto Pulliam MANUAL DIFF REQ NO Normal [facility] Comment on above: Performed By: #### C BC ####[facility] Jgvsketluf8892 [place] [address]DrAdalberto Pulliam MCH (RBC) [Entitic mass] 30.5 pg Normal 25.9-34.0 [facility] Comment on above: Performed By: #### C BC ####[facility] Jxhxnjvwoz1548 [place] [address]DrAdalberto Pulliam MCHC (RBC) [Mass/Vol] 33.4 g/dL Normal 29.9-35.[address] [facility] Comment on above: Performed By: #### C BC ####[facility] Czdbahmucs5751 [place] [address]DrAdalberto Pulliam MCV (RBC) [Entitic vol] 91.2 fL Normal 80.0-94.[address] [facility] Comment on above: Performed By: #### C BC ####[facility] Olzwayrwom[address] [place], [place] [address]DrAdalberto Pulliam MONO # 0.8 103/ul Normal 0.3-0.[address] [facility] Comment on above: Performed By: #### C BC ####[facility] Rpudsmlhjk[address] [place], [place] [address]DrAdalberto Pulliam Monocytes/100 WBC (Bld) 7.6 % Normal 1.7-12.[address] [facility] Comment on above: Performed By: #### C BC ####[facility] Ajqpjengws13[address] [place], [place] [address]DrAdalberto Pulliam NEUT # 7.0 103/ul Critically high 1.4-6.5 [facility] Comment on above: Performed By: #### C BC ####[facility] Bjqnjsjczt124[address] [place], [place] [address]DrAdalberto Pulliam Neutrophils/100 WBC (Bld) 71.2 % Normal 43.0-75.[address] [facility] Comment on above: Performed By: #### C BC ####[facility] Qvvfvixvlm7020[address] [place], [place] [address]DrAdalberto Pulliam Platelet mean volume (Bld) [Entitic vol] 8.9 fL Critically low 9.5-13.[address] [facility] Comment on above: Performed By: #### C BC ####[facility] Nnpblaltqc404[address] [place], [place] [address]DrAdalberto Pulliam PLT 217 103/ul Normal 150-450 [facility] Comment on above: Performed By: #### C BC ####[facility] Xlbzvxudzb9837 [place] [address]Dr. Garima Heraclio RBC 5.02 106/ul Normal 4.70-6.10 [facility] Comment on above: Performed By: #### C BC ####[facility] Qphcwhblkk18[address] [place], [place] [address]Dr. Garima Pulliam WBC 9.8 103/ul Normal 4.0-11.0 [facility] Comment on above: Performed By: #### C BC ####[facility] Muiiujfvrl55[address] [place], [place] [address]Dr. Garima Heraclio CRPon 03-18-2023 CRP 0.1 mg/dL Normal <=1.0 [facility] Comment on above: Performed By: #### C RP ####[facility] Vzdcuqjrhf[address] [place], [place] [address]Dr. Garima Heraclio PROF CHEM 8 (BAS METB)on Anion gap [Moles/Vol] 10.4 mmol/L Normal [facility] Comment on above: Performed By: #### B LIME SLAKER, BMP ####[facility] Awidcfgpqy069[address] [place], [place] [address]Dr. Garima Heraclio Calcium [Mass/Vol] 8.8 mg/dL Normal 8.5-10.1 [facility] Comment on above: Performed By: #### B LIME SLAKER, BMP ####[facility] Oaqnkzznhg[address] [place], [place] [address]Dr. Garima Heraclio Chloride [Moles/Vol] 97 mmol/L Critically low 98-107 [facility] Comment on above: Performed By: #### B LIME SLAKER, BMP ####[facility] Ytimibnxab[address] [place], [place] [address]Dr. Garima Pulliam CO2 [Moles/Vol] 31.2 mmol/L Normal 21.0-32.0 [facility] Comment on above: Performed By: #### B LIME SLAKER, BMP ####[facility] Hrxogrbtzp27[address] [place], [place] [address]Dr. Garima Pulliam Creatinine [Mass/Vol] 0.91 mg/dL Normal 0.70-1.30 [facility] Comment on above: Performed By: #### B LIME SLAKER, BMP ####[facility] Vufgjexbbc25[address] [place] [address]Dr. Garima Pulliam EGFR-AF ITALIAN >60 Normal >=60 [facility] Comment on above: Performed By: #### B LIME SLAKER, BMP ####[facility] Kqelmzksto3873 [place] [id number]. Garima Pulliam EGFR-NON AF ITALIAN >60 Normal >=60 [facility] Comment on above: Performed By: #### B LIME SLAKER, BMP ####[facility] Zhxzlhgowb5195 [place] [address]Dr. Garima Pulliam Glucose [Mass/Vol] 315 mg/dL Critically high 74-106 T [facility] Comment on above: Performed By: #### B LIME SLAKER, BMP ####[facility] Yuciiwscxm3023 [place] [address]Dr. Garima Pulliam Potassium [Moles/Vol] 3.6 mmol/L Normal 3.5-5.1 [facility] Comment on above: Performed By: #### B LIME SLAKER, BMP ####[facility] Wdugexpook2519 [place] [address]Dr. Garima Pulliam Sodium [Moles/Vol] 135 mmol/L Critically low 136-145 Th [facility] Comment on above: Performed By: #### B LIME SLAKER, BMP ####[facility] Lkbjjtzktz8330 [place] [address]Dr. Garima Pulliam Urea nitrogen [Mass/Vol] 7.0 mg/dL Normal 7.0-18.0 [facility] Comment on above: Performed By: #### B LIME SLAKER, BMP ####[facility] Wavzaifzzj9208 [place] [address]Dr. Garima Pulliam Urea nitrogen/Creatinine [Mass ratio] 7.7 mg/mg Normal [facility] Comment on above: Performed By: #### B LIME SLAKER, BMP ####[facility] Uxcfsarwni1686 [place] [address]Dr. Garima Pulliam SED RATE WESTERGRENon 2022 SED RATE 8 mm/hr Normal <=[address] [facility] Comment on above: Performed By: #### S EDR ####[facility] [address]crdjgcdm[address] [place], [place] [address]Dr. Garima Pulliam BNPon 03-16-2023 Natriuretic peptide B (Bld) [Mass/Vol] 241.0 pg/mL Normal <=900.[address] [facility] Comment on above: Performed By: #### B LIME SLAKER, BMP, HSTROPN ####[facility] Gcvyzpnrzj[address] [place], [place] [address]Dr. Garima Heraclio CBC AUTO DIFFon 03-16-2023 BASO # 0.0 103/ul Normal 0.0-0.1 [facility] Comment on above: Performed By: #### C BC ####[facility] Ywqjdkjowp[address] [place], [place] [address]Dr. Chapisrenu Pulliam Basophils/100 WBC (Bld) 0.2 % Normal 0.2-2.0 [facility] Comment on above: Performed By: #### C BC ####[facility] Awkmfnvhmm398[address] [place], [place] [address]Dr. Garima Pulliam EO # 0.2 103/ul Normal 0.0-0.[address] [facility] Comment on above: Performed By: #### C BC ####[facility] Xhwtervyrp38[address] [place], [place] [address]Dr. Chapisrenu Pulliam Eosinophils/100 WBC (Bld) 2.7 % Normal 0.9-7.[address] [facility] Comment on above: Performed By: #### C BC ####[facility] Dbryzncdzw89[address] [place], [place] [address]Dr. Garima Pulliam Erythrocyte distribution width (RBC) [Ratio] 13.1 % Normal 11.0-15.[address] [facility] Comment on above: Performed By: #### C BC ####[facility] Vbttbwcbvr9[address] [place], [place] [address]Dr. Garima Pulliam Hematocrit (Bld) [Volume fraction] 41.8 % Critically low 42.0-54.0 [facility] Comment on above: Performed By: #### C BC ####[facility] Sxogpqwuil6101 [place] [address]Dr. Garima Pulliam Hemoglobin (Bld) [Mass/Vol] 14.0 g/dL Normal 14.0-18.0 [facility] Comment on above: Performed By: #### C BC ####[facility] Ziefuxulkd[address]25 [place] [address]Dr. Garima Pulliam IG # 0.03 10e3/ul Normal 0.00-0.03 [facility] Comment on above: Performed By: #### C BC ####[facility] [address]tbemgmwbm[address] [place] [place] [address]Dr. Garima Pulliam IG % 0.3 % Normal 0.0-0.5 [facility] Comment on above: Performed By: #### C BC ####[facility] Rsuztbminj[address] [place], [place] [address]Dr. Chapisrenu Pulliam LYMPH # 2.1 103/ul Normal 1.2-3.8 [facility] Comment on above: Performed By: #### C BC ####[facility] Fpeddcgrag[address] [place], [place] [address]Dr. Chapisrenu Pulliam Lymphocytes/100 WBC (Bld) 24.2 % Normal 20.5-60.0 [facility] Comment on above: Performed By: #### C BC ####[facility] Arxefznhne[address] [place] [address]Dr. Garima Pulliam MANUAL DIFF REQ NO Normal [facility] Comment on above: Performed By: #### C BC ####[facility] Krlwbweayj6614 [place] [address]Dr. Garima Pulliam MCH (RBC) [Entitic mass] 30.2 pg Normal 25.9-34.[address] [facility] Comment on above: Performed By: #### C BC ####[facility] Khtxyycjlf8226 [place] [address]Dr. Garima Pulliam MCHC (RBC) [Mass/Vol] 33.5 g/dL Normal 29.9-35.[address] [facility] Comment on above: Performed By: #### C BC ####[facility] Kjtdqyfoda4532 [place] [id number]. Garima Pulliam MCV (RBC) [Entitic vol] 90.1 fL Normal 80.0-94.[address] [facility] Comment on above: Performed By: #### C BC ####[facility] Wupolvdzgq0391 [place] [id number]. Garima Pulliam MONO # 0.6 103/ul Normal 0.3-0.8 [facility] Comment on above: Performed By: #### C BC ####[facility] Ngxykqhdlq0190 [place] [address]Dr. Garima Heraclio Monocytes/100 WBC (Bld) 7.4 % Normal 1.7-12.0 [facility] Comment on above: Performed By: #### C BC ####[facility] Qivzmwbtkg[address] [place], [place] [address]Dr. Garima Pulliam NEUT # 5.6 103/ul Normal 1.4-6.5 [facility] Comment on above: Performed By: #### C BC ####[facility] Jspgfuogng214[address] [place], [place] [address]Dr. Garima Heraclio Neutrophils/100 WBC (Bld) 65.2 % Normal 43.0-75.[address] [facility] Comment on above: Performed By: #### C BC ####[facility] Zehibmjeyt9671 [place] [id number]. Garima Heraclio Platelet mean volume (Bld) [Entitic vol] 8.7 fL Critically low 9.5-13.[address] [facility] Comment on above: Performed By: #### C BC ####[facility] Olauzyocxa[address] [place], [place] [address]Dr. Garima Heraclio PLT 195 103/ul Normal 150-[address] [facility] Comment on above: Performed By: #### C BC ####[facility] Igzbrirlwz7546 [place] [id number]. Garima Pulliam RBC 4.64 106/ul Critically low 4.70-6.10 [facility] Comment on above: Performed By: #### C BC ####[facility] Ighhroblbq1906 [place] [address]Dr. Garima Pulliam WBC 8.6 103/ul Normal 4.0-11.[address] [facility] Comment on above: Performed By: #### C BC ####[facility] Ueefvrlzqn8944 [place] [address]Dr. Garima Pulliam PROF CHEM 8 (BAS METB)on Anion gap [Moles/Vol] 6.7 mmol/L Normal [facility] Comment on above: Performed By: #### B LIME SLAKER, BMP, HSTROPN ####[facility] Lmiwlgfssu4842 [place] [address]Dr. Garima Pulliam Calcium [Mass/Vol] 8.8 mg/dL Normal 8.5-10.1 [facility] Comment on above: Performed By: #### B LIME SLAKER, BMP, HSTROPN ####[facility] Ditbfcytfh5[address] [place], [place] [address]Dr. Garima Pulliam Chloride [Moles/Vol] 106 mmol/L Normal 98-[address] [facility] Comment on above: Performed By: #### B LIME SLAKER, BMP, HSTROPN ####[facility] Khxzknzsnr214[address] [place], [place] [address]Dr. Garima Pulliam CO2 [Moles/Vol] 31.4 mmol/L Normal 21.0-32.0 [facility] Comment on above: Performed By: #### B LIME SLAKER, BMP, HSTROPN ####[facility] Zmqbyhetxi04[address] [place], [place] [address]Dr. Garima Pulliam Creatinine [Mass/Vol] 0.75 mg/dL Normal 0.70-1.[address] [facility] Comment on above: Performed By: #### B LIME SLAKER, BMP, HSTROPN ####[facility] Jfoljhvqbm2413 [place] [address]Dr. Garima Pulliam EGFR-AF ITALIAN >60 Normal >=60 [facility] Comment on above: Performed By: #### B LIME SLAKER, BMP, HSTROPN ####[facility] Dxvldlvbqa0251 [place] [address]Dr. Garima Pulliam EGFR-NON AF ITALIAN >60 Normal >=60 [facility] Comment on above: Performed By: #### B LIME SLAKER, BMP, HSTROPN ####[facility] Rhsohayxpf2207 [place] [address]Dr. Garima Pulliam Glucose [Mass/Vol] 161 mg/dL Critically high 74-106 [facility] Comment on above: Performed By: #### B LIME SLAKER, BMP, HSTROPN ####[facility] Kytsqotzue0278 [place] [address]Dr. Garima Pulliam Potassium [Moles/Vol] 4.1 mmol/L Normal 3.5-5.1 [facility] Comment on above: Performed By: #### B LIME SLAKER, BMP, HSTROPN ####[facility] Gznemoylxj9871 [place] [address]Dr. Garima Pulliam Sodium [Moles/Vol] 140 mmol/L Normal 136-145 [facility] Comment on above: Performed By: #### B LIME SLAKER, BMP, HSTROPN ####[facility] Ghludfelhy0095 [place] [address]Dr. Garima Pulliam Urea nitrogen [Mass/Vol] 7.0 mg/dL Normal 7.0-18.0 [facility] Comment on above: Performed By: #### B LIME SLAKER, BMP, HSTROPN ####[facility] Npcubtlkkq6047 [place] [address]Dr. Garima Pulliam Urea nitrogen/Creatinine [Mass ratio] 9.3 mg/mg Normal [facility] Comment on above: Performed By: #### B LIME SLAKER, BMP, HSTROPN ####[facility] Ptoghzzzae0074 [place] [address]Dr. Garima Pulliam TROPONIN, HIGH SENSITIVITYon 03-16-2023 HSTROP 9.7 pg/mL Normal 4.0-76.1 [facility] Comment on above: Result Comment: CUT- OFF POINTS HAVE BEEN ESTABLISHED BASED ON THE FOURTH UNIVERSAL DEFINITIONS OF MYOCARDIALINFARCTION. THE UPPER REFERENCE LIMIT (URL) OF TROPONIN, DEFINED THE 99TH PERCENTILE OFcTnI DISTRIBUTION IN A REFERENCE POPULATION, HAS BEEN CONFIRMED THE DECISION THRESHOLDFOR [place] DIAGNOSIS. Performed By: #### B LIME SLAKER, BMP, HSTROPN ####[facility] Szgztqtxjo4097 [place] [address]Dr. Garima Pulliam XR CHEST 1 Von 03-16-2023 XR CHEST [address] [facility] BNPon 03-06-2023 Natriuretic peptide B (Bld) [Mass/Vol] 111.0 pg/mL Normal <=900.[address] [facility] Comment on above: Performed By: #### C MP, BNP, CK ####[facility] Cetfwypsio4624 [place] [address]Dr. Chapisrenu Pulliam CBC AUTO DIFFon 03-06-2023 BASO # 0.0 103/ul Normal 0.0-0.1 [facility] Comment on above: Performed By: #### C BC ####[facility] Rrmzttuqdk[address] [place], [place] [address]Dr. Garima Pulliam Basophils/100 WBC (Bld) 0.2 % Normal 0.2-2.[address] [facility] Comment on above: Performed By: #### C BC ####[facility] Rvzvkzppud[address] [place], [place] [address]Dr. Garima Pulliam EO # 0.3 103/ul Normal 0.0-0.[address] [facility] Comment on above: Performed By: #### C BC ####[facility] Oukybuawna13[address] [place], [place] [address]Dr. Garima Pulliam Eosinophils/100 WBC (Bld) 3.5 % Normal 0.9-7.[address] [facility] Comment on above: Performed By: #### C BC ####[facility] Awkucyisyr1534[address] [place], [place] [address]Dr. Garima Pulliam Erythrocyte distribution width (RBC) [Ratio] 13.3 % Normal 11.0-15.[address] [facility] Comment on above: Performed By: #### C BC ####[facility] Gpfubsoyxa67[address] [place], [place] [address]Dr. Garima Pulliam Hematocrit (Bld) [Volume fraction] 43.7 % Normal 42.0-54.0 [facility] Comment on above: Performed By: #### C BC ####[facility] Kqtxiohctf1060 [place] [address]Dr. Garima Pulliam Hemoglobin (Bld) [Mass/Vol] 14.7 g/dL Normal 14.0-18.0 [facility] Comment on above: Performed By: #### C BC ####[facility] Adtuafeayy[address] [place] [address]Dr. Chapisrenu Heraclio IG # 0.03 10e3/ul Normal 0.00-0.03 [facility] Comment on above: Performed By: #### C BC ####[facility] Ratfyjijgx[address] [place], [place] [address]Dr. Garima Pulliam IG % 0.4 % Normal 0.0-0.5 [facility] Comment on above: Performed By: #### C BC ####[facility] Jakmecqizr5837[address] [place], [place] [address]Dr. Garima Pulliam LYMPH # 2.0 103/ul Normal 1.2-3.8 [facility] Comment on above: Performed By: #### C BC ####[facility] Buwlsowygl47[address] [place], [place] [address]DrAdalberto Pulliam Lymphocytes/100 WBC (Bld) 23.7 % Normal 20.5-60.0 [facility] Comment on above: Performed By: #### C BC ####[facility] Qqxycrfydu0946 [place] [address]Dr. Garima Pulliam MANUAL DIFF REQ NO Normal [facility] Comment on above: Performed By: #### C BC ####[facility] Honafplhqz8565 [place] [id number] Pulliam MCH (RBC) [Entitic mass] 30.1 pg Normal 25.9-34.0 [facility] Comment on above: Performed By: #### C BC ####[facility] Zgettkdnut8867 [place] [id number]. Garima Pulliam MCHC (RBC) [Mass/Vol] 33.6 g/dL Normal 29.9-35.2 [facility] Comment on above: Performed By: #### C BC ####[facility] Shpzqsrsau9308 [place] [address]Dr. Garima Heraclio MCV (RBC) [Entitic vol] 89.4 fL Normal 80.0-94.[address] [facility] Comment on above: Performed By: #### C BC ####[facility] Jawfqzwwsq4804 [place] [address]Dr. Garima Pulliam MONO # 0.8 103/ul Normal 0.3-0.[address] [facility] Comment on above: Performed By: #### C BC ####[facility] Wznfodxuqp6719 [place] [address]Dr. Garima Pulliam Monocytes/100 WBC (Bld) 9.0 % Normal 1.7-12.[address] [facility] Comment on above: Performed By: #### C BC ####[facility] Ftzsyucxtr18[address] [place], [place] [address]Dr. Garima Pulliam NEUT # 5.4 103/ul Normal 1.4-6.[address] [facility] Comment on above: Performed By: #### C BC ####[facility] Cwbdeyqrla287[address] [place], [place] [address]Dr. Garima Pulliam Neutrophils/100 WBC (Bld) 63.2 % Normal 43.0-75.[address] [facility] Comment on above: Performed By: #### C BC ####[facility] Erbndqombt114[address] [place], [place] [address]Dr. Garima Pulliam Platelet mean volume (Bld) [Entitic vol] 9.0 fL Critically low 9.5-13.[address] [facility] Comment on above: Performed By: #### C BC ####[facility] Ljltuppyys60[address] [place], [place] [address]Dr. Garima Pulliam PLT 218 103/ul Normal 150-[address] [facility] Comment on above: Performed By: #### C BC ####[facility] Vaiktjvfcn7819 [place] [id number]. Garima Pulliam RBC 4.89 106/ul Normal 4.70-6.[address] [facility] Comment on above: Performed By: #### C BC ####[facility] Dzjdevxktq1912 [place] [address]Dr. Garima Pulliam WBC 8.5 103/ul Normal 4.0-11.0 [facility] Comment on above: Performed By: #### C BC ####[facility] Ogdwigawcw6802 [place] [address]Dr. Garima Pulliam CPKon 03-06-2023 CK [Catalytic activity/Vol] 191 U/L Normal 39-308 [facility] Comment on above: Performed By: #### C MP, BNP, CK ####[facility] Yobngxotkn1128 [place] [address]Dr. Garima Pulliam PROF 14(COMP METB)on 023 Albumin [Mass/Vol] 3.6 g/dL Normal 3.4-5.0 [facility] Comment on above: Performed By: #### C MP, BNP, CK ####[facility] Ptpvbgsqof2873 [place] [address]Dr. Garima Pulliam Albumin/Globulin [Mass ratio] 1.2 {ratio} Normal [facility] Comment on above: Performed By: #### C MP, BNP, CK ####[facility] Xiuukinxrg5934 [place] [address]Dr. Garima Pulliam ALP [Catalytic activity/Vol] 91 U/L Normal 46-116 [facility] Comment on above: Performed By: #### C MP, BNP, CK ####[facility] Etyffcopkt4669 [place] [address]Dr. Garima Pulliam ALT [Catalytic activity/Vol] 33 U/L Normal 16-63 [facility] Comment on above: Performed By: #### C MP, BNP, CK ####[facility] Byvmcfovrm4499 [place] [address]Dr. Garima Pulliam Anion gap [Moles/Vol] 10.3 mmol/L Normal [facility] Comment on above: Performed By: #### C MP, BNP, CK ####[facility] Zksgcztlsb4460 [place] [address]Dr. Garima Pulliam AST [Catalytic activity/Vol] 17 U/L Normal 15-[address] [facility] Comment on above: Performed By: #### C MP, BNP, CK ####[facility] Xykgkpmqlr8846 [place] [address]Dr. Garima Pulliam Bilirubin [Mass/Vol] 0.4 mg/dL Normal 0.2-1.0 [facility] Comment on above: Performed By: #### C MP, BNP, CK ####[facility] Rrzkepzetc3702 [place] [address]Dr. Garima Pulliam Calcium [Mass/Vol] 9.1 mg/dL Normal 8.5-10.1 [facility] Comment on above: Performed By: #### C MP, BNP, CK ####[facility] Giqmzqaldq3827 [place] [address]Dr. Garima Pulliam Chloride [Moles/Vol] 102 mmol/L Normal 98-[address] [facility] Comment on above: Performed By: #### C MP, BNP, CK ####[facility] Cyvmkalfzm5310 [place] [address]Dr. Garima Pulliam CO2 [Moles/Vol] 29.7 mmol/L Normal 21.0-32.0 [facility] Comment on above: Performed By: #### C MP, BNP, CK ####[facility] Rkrfsuutnw2634 [place] [address]Dr. Garima Pulliam Creatinine [Mass/Vol] 0.79 mg/dL Normal 0.70-1.[address] [facility] Comment on above: Performed By: #### C MP, BNP, CK ####[facility] Mivftdqeus5085 [place] [address]Dr. Garima Pulliam EGFR-AF ITALIAN >60 Normal >=60 [facility] Comment on above: Performed By: #### C MP, BNP, CK ####[facility] Eayhufjptj3545 [place] [address]Dr. Garima Pulliam EGFR-NON AF ITALIAN >60 Normal >=[address] [facility] Comment on above: Performed By: #### C MP, BNP, CK ####[facility] Fesbqhoxke8142 [place] [address]Dr. Garima Pulliam Globulin (S) [Mass/Vol] 3.0 g/dL Normal [facility] Comment on above: Performed By: #### C MP, BNP, CK ####[facility] Drbleffmsm8035 [place] [address]Dr. Garima Pulliam Glucose [Mass/Vol] 202 mg/dL Critically high 74-106 [facility] Comment on above: Performed By: #### C MP, BNP, CK ####[facility] Msoteukrzm9907 [place] [address]Dr. Garima Pulliam Potassium [Moles/Vol] 4.0 mmol/L Normal 3.5-5.1 [facility] Comment on above: Performed By: #### C MP, BNP, CK ####[facility] Svhujfztaa4818 [place] [address]Dr. Garima Pulliam Protein [Mass/Vol] 6.6 g/dL Normal 6.4-8.2 [facility] Comment on above: Performed By: #### C MP, BNP, CK ####[facility] Mdbubectbs[address] [place], [place] [address]Dr. Garima Pulliam Sodium [Moles/Vol] 138 mmol/L Normal 136-145 [facility] Comment on above: Performed By: #### C MP, BNP, CK ####[facility] Nphkhxymtb4614[address] [place], [place] [address]Dr. Garima Pulliam Urea nitrogen [Mass/Vol] 10.0 mg/dL Normal 7.0-18.0 [facility] Comment on above: Performed By: #### C MP, BNP, CK ####[facility] Lxqkaouazw6499 [place] [address]Dr. Garima Pulliam Urea nitrogen/Creatinine [Mass ratio] 12.7 mg/mg Normal [facility] Comment on above: Performed By: #### C MP, BNP, CK ####[facility] Vckjhrplqs3804 [place] [address]Dr. Garima Pulliam US VERONICA DOP LEG BILon 023 US VERONICA DOP LEG BENOIT Normal [facility] CBC AUTO DIFFon 01-13-2023 BASO # 0.0 103/ul Normal 0.0-0.[address] [facility] Comment on above: Performed By: #### C BC ####[facility] Basqnlfpfz2376 [place] [id number]. Chapisrenu Pulliam Basophils/100 WBC (Bld) 0.0 % Critically low 0.2-2.[address] [facility] Comment on above: Performed By: #### C BC ####[facility] Mwhhuphohh8001 [place] [address]Dr. Garima Pulliam EO # 0.0 103/ul Normal 0.0-0.[address] [facility] Comment on above: Performed By: #### C BC ####[facility] Vqxebcgxum[address] [place], [place] [address]Dr. Garima Pulliam Eosinophils/100 WBC (Bld) 0.0 % Critically low 0.9-7.[address] [facility] Comment on above: Performed By: #### C BC ####[facility] Mzxzjfwxky7615 [place] [address]Dr. Garima Pulliam Erythrocyte distribution width (RBC) [Ratio] 13.2 % Normal 11.0-15.0 [facility] Comment on above: Performed By: #### C BC ####[facility] Ifbqjmfefx39[address] [place], [place] [address]Dr. Garima Pulliam Hematocrit (Bld) [Volume fraction] 46.7 % Normal 42.0-54.[address] [facility] Comment on above: Performed By: #### C BC ####[facility] Eiqoxahxze507[address] [place], [place] [address]Dr. Garima Pulliam Hemoglobin (Bld) [Mass/Vol] 15.6 g/dL Normal 14.0-18.[address] [facility] Comment on above: Performed By: #### C BC ####[facility] Fjiaqsxmfe635[address] [place], [place] [address]Dr. Garima Pulliam IG # 0.01 10e3/ul Normal 0.00-0.[address] [facility] Comment on above: Performed By: #### C BC ####[facility] Sojvqehbrz9092 [place] [id number]. Garima Pulliam IG % 0.2 % Normal 0.0-0.5 [facility] Comment on above: Performed By: #### C BC ####[facility] Pjhecvzyie6628 [place] [id number]. Garima Pulliam LYMPH # 0.8 103/ul Critically low 1.2-3.8 [facility] Comment on above: Performed By: #### C BC ####[facility] Ctaipuhnog5647 [place] [id number]. Garima Pullima Lymphocytes/100 WBC (Bld) 12.7 % Critically low 20.5-60.0 [facility] Comment on above: Performed By: #### C BC ####[facility] Vqpbbsgpbr2823 [place] [address]Dr. Garima Pulliam MANUAL DIFF REQ NO Normal [facility] Comment on above: Performed By: #### C BC ####[facility] Ijsymckaqo8234 [place] [phone]. Garima Pulliam MCH (RBC) [Entitic mass] 30.2 pg Normal 25.9-34.0 [facility] Comment on above: Performed By: #### C BC ####[facility] Oyctucpfod8815 [place] [id number]. Garima Pulliam MCHC (RBC) [Mass/Vol] 33.4 g/dL Normal 29.9-35.[address] [facility] Comment on above: Performed By: #### C BC ####[facility] Nshyapmqwr7975 [place] [phone]. Garima Pulliam MCV (RBC) [Entitic vol] 90.3 fL Normal 80.0-94.[address] [facility] Comment on above: Performed By: #### C BC ####[facility] Gepwuvonkc0648 [place] [id number]. Garima Heraclio MONO # 0.1 103/ul Critically low 0.3-0.8 [facility] Comment on above: Performed By: #### C BC ####[facility] Gsodhehcwf8455 [place] [id number]. Garima Pulliam Monocytes/100 WBC (Bld) 0.9 % Critically low 1.7-12.0 [facility] Comment on above: Performed By: #### C BC ####[facility] Ecfpyrfvsh0236 [place] [id number]. Garima Pulliam NEUT # 5.6 103/ul Normal 1.4-6.[address] [facility] Comment on above: Performed By: #### C BC ####[facility] Sajhygccpr7097 [place] [id number]. Garima Pulliam Neutrophils/100 WBC (Bld) 86.2 % Critically high 43.0-75.0 [facility] Comment on above: Performed By: #### C BC ####[facility] Zkrcxzbgua8666 [place] [address]Dr. Garima Pulliam Platelet mean volume (Bld) [Entitic vol] 9.1 fL Critically low 9.5-13.5 [facility] Comment on above: Performed By: #### C BC ####[facility] Hwauyribky[address] [place], [place] [address]Dr. Garima Pulliam PLT 169 103/ul Normal 150-[address] [facility] Comment on above: Performed By: #### C BC ####[facility] Gsdrarukot38[address] [place], [place] [address]Dr. Garima Pulliam RBC 5.17 106/ul Normal 4.70-6.[address] [facility] Comment on above: Performed By: #### C BC ####[facility] [address]ppiikimkw50[address] [place], [place] [address]Dr. Garima Pulliam WBC 6.5 103/ul Normal 4.0-11.[address] [facility] Comment on above: Performed By: #### C BC ####[facility] Ngdsykrqln034[address] [place], [place] [address]Dr. Garima Pulliam D-DIMERon 01-13-2023 D-DIMER 0.41 mg/L FEU Normal <=0.59 [facility] Comment on above: Performed By: #### D DIM ####[facility] Jztxqaiokm7237 [place] [address]Dr. Garima Pulliam D-DIMER COMMENTS SEE BELOW Normal [facility] Comment on above: Result Comment: Incr [...] hospitalization. Performed By: #### D DIM ####[facility] Euvrmzftes9509[address] [place], [place] [address]Dr. Garima Pulliam PROF 14(COMP METB)on 023 Albumin [Mass/Vol] 3.4 g/dL Normal 3.4-5.0 [facility] Comment on above: Performed By: #### C MP ####[facility] Nstnsvyaqu78[address] [place], [place] [address]Dr. Garima Pulliam Albumin/Globulin [Mass ratio] 1.3 {ratio} Normal [facility] Comment on above: Performed By: #### C MP ####[facility] Yyrqbounmw500[address] [place], [place] [address]Dr. Garima Pulliam ALP [Catalytic activity/Vol] 83 U/L Normal 46-116 [facility] Comment on above: Performed By: #### C MP ####[facility] Ylmydqoiwa728[address] [place], [place] [address]Dr. Garima Pulliam ALT [Catalytic activity/Vol] 25 U/L Normal 16-63 [facility] Comment on above: Performed By: #### C MP ####[facility] Hockoofpru2241 [place] [address]Dr. Garima Pulliam Anion gap [Moles/Vol] 14.5 mmol/L Normal [facility] Comment on above: Performed By: #### C MP ####[facility] Hiaendnbgc485[address] [place], [place] [address]Dr. Garima Pulliam AST [Catalytic activity/Vol] 19 U/L Normal 15-37 [facility] Comment on above: Performed By: #### C MP ####[facility] Ervnrazrqs747[address] [place], [place] [address]Dr. Garima Pulliam Bilirubin [Mass/Vol] 0.4 mg/dL Normal 0.2-1.0 [facility] Comment on above: Performed By: #### C MP ####[facility] Ntbbgaomsi[address] [place], [place] [address]Dr. Garima Pulliam Calcium [Mass/Vol] 8.7 mg/dL Normal 8.5-10.1 [facility] Comment on above: Performed By: #### C MP ####[facility] Ntzaqrteih6518[address] [place], [place] [address]Dr. Garima Pulliam Chloride [Moles/Vol] 104 mmol/L Normal 98-107 [facility] Comment on above: Performed By: #### C MP ####[facility] Qhqlohxmeb46[address] [place], [place] [address]Dr. Garima Pulliam CO2 [Moles/Vol] 24.5 mmol/L Normal 21.0-32.0 [facility] Comment on above: Performed By: #### C MP ####[facility] Nwiueyeqne94[address] [place], [place] [address]Dr. Garima Pulliam Creatinine [Mass/Vol] 0.70 mg/dL Normal 0.70-1.30 [facility] Comment on above: Performed By: #### C MP ####[facility] Bjwdezlllc03[address] [place], [place] [address]Dr. Garima Heraclio EGFR-AF ITALIAN >60 Normal >=60 [facility] Comment on above: Performed By: #### C MP ####[facility] Dbohspvsfe3[address] [place], [place] [address]Dr. Chapisrenu Heraclio EGFR-NON AF ITALIAN >60 Normal >=60 [facility] Comment on above: Performed By: #### C MP ####[facility] Iumwzxcvbs47[address] [place], [place] [address]Dr. Chapisrenu Pulliam Globulin (S) [Mass/Vol] 2.6 g/dL Normal [facility] Comment on above: Performed By: #### C MP ####[facility] Gxdiqrjtja38[address] [place] [address]Dr. Garima Pulliam Glucose [Mass/Vol] 196 mg/dL Critically high 74-106 [facility] Comment on above: Performed By: #### C MP ####[facility] Mifsfkspsf16[address] [place] [address]Dr. Garima Pulliam Potassium [Moles/Vol] 4.0 mmol/L Normal 3.5-5.1 [facility] Comment on above: Performed By: #### C MP ####[facility] Veoyyciibj17[address] [place] [address]Dr. Garima Pulliam Protein [Mass/Vol] 6.0 g/dL Critically low 6.4-8.2 [facility] Comment on above: Performed By: #### C MP ####[facility] Jbohdgpbcz[address] [place], [place] [address]Dr. Garima Pulliam Sodium [Moles/Vol] 139 mmol/L Normal 136-145 [facility] Comment on above: Performed By: #### C MP ####[facility] Zdumwdjgio[address] [place], [place] [address]Dr. Garima Pulliam Urea nitrogen [Mass/Vol] 7.0 mg/dL Normal 7.0-18.0 [facility] Comment on above: Performed By: #### C MP ####[facility] Ajgaseahpz[address] [place], [place] [address]Dr. Garima Heraclio Urea nitrogen/Creatinine [Mass ratio] 10.0 mg/mg Normal [facility] Comment on above: Performed By: #### C MP ####[facility] Cngjjhxlfi[address] [place], [place] [address]Dr. Garima Heraclio BNPon 01-12-2023 Natriuretic peptide B (Bld) [Mass/Vol] 141.0 pg/mL Normal <=900.0 [facility] Comment on above: Performed By: #### C MP, BNP, HSTROPN ####[facility] [address]mupyvywvm[address] [place], [place] [address]Dr. Garima Heraclio CBC AUTO DIFFon 01-12-2023 BASO # 0.0 103/ul Normal 0.0-0.[address] [facility] Comment on above: Performed By: #### C BC ####[facility] Vwulsulzdq1737 [place] [id number]. Garima Heraclio Basophils/100 WBC (Bld) 0.2 % Normal 0.2-2.[address] [facility] Comment on above: Performed By: #### C BC ####[facility] Vsgiuenwwa65[address] [place] [address]Dr. Garima Heraclio EO # 0.2 103/ul Normal 0.0-0.[address] [facility] Comment on above: Performed By: #### C BC ####[facility] Qbqcnyzbqn6604 [place] [address]Dr. Garima Heraclio Eosinophils/100 WBC (Bld) 2.7 % Normal 0.9-7.[address] [facility] Comment on above: Performed By: #### C BC ####[facility] Otkkriciyc9[address] [place], [place] [address]Dr. Garima Pulliam Erythrocyte distribution width (RBC) [Ratio] 13.3 % Normal 11.0-15.[address] [facility] Comment on above: Performed By: #### C BC ####[facility] Okvusnwitk94[address] [place], [place] [address]Dr. Garima Pulliam Hematocrit (Bld) [Volume fraction] 42.3 % Normal 42.0-54.[address] [facility] Comment on above: Performed By: #### C BC ####[facility] Jwyotzxdwe50[address] [place], [place] [address]Dr. Garima Pulliam Hemoglobin (Bld) [Mass/Vol] 14.3 g/dL Normal 14.0-18.[address] [facility] Comment on above: Performed By: #### C BC ####[facility] Qtogpuagyp[address] [place], [place] [address]Dr. Garima Pulliam IG # 0.02 10e3/ul Normal 0.00-0.[address] [facility] Comment on above: Performed By: #### C BC ####[facility] Rhzwcmyqdk3858 [place] [id number]. Garima Pulliam IG % 0.2 % Normal 0.0-0.[address] [facility] Comment on above: Performed By: #### C BC ####[facility] Uvgupwwuii6414 [place] [address]Dr. Garima Pulliam LYMPH # 2.6 103/ul Normal 1.2-3.[address] [facility] Comment on above: Performed By: #### C BC ####[facility] Mihtzirslg3174 [place] [address]Dr. Garima Heraclio Lymphocytes/100 WBC (Bld) 29.6 % Normal 20.5-60.[address] [facility] Comment on above: Performed By: #### C BC ####[facility] Ivhznoxghu07[address] [place] [address]Dr. Garima Heraclio MANUAL DIFF REQ NO Normal [facility] Comment on above: Performed By: #### C BC ####[facility] Rrsvczxjfx4946 [place] [id number]. Garima Pulliam MCH (RBC) [Entitic mass] 30.2 pg Normal 25.9-34.[address] [facility] Comment on above: Performed By: #### C BC ####[facility] Maunoyywva9782 [place] [address]Dr. Garima Pulliam MCHC (RBC) [Mass/Vol] 33.8 g/dL Normal 29.9-35.[address] [facility] Comment on above: Performed By: #### C BC ####[facility] Qavgmffcab3197 [place] [id number]. Garima Pulliam MCV (RBC) [Entitic vol] 89.2 fL Normal 80.0-94.[address] [facility] Comment on above: Performed By: #### C BC ####[facility] Vrklqwdpyr05[address] [place], [place] [address]Dr. Chapisrenu Pulliam MONO # 0.7 103/ul Normal 0.3-0.[address] [facility] Comment on above: Performed By: #### C BC ####[facility] Swclepsgpz8306 [place] [id number]. Garima Pulliam Monocytes/100 WBC (Bld) 8.3 % Normal 1.7-12.[address] [facility] Comment on above: Performed By: #### C BC ####[facility] Vcmfwvjjsr6774 [place] [id number]. Garima Pulliam NEUT # 5.1 103/ul Normal 1.4-6.[address] [facility] Comment on above: Performed By: #### C BC ####[facility] Zobgoinqwe7575 [place] [address]Dr. Garima Pulliam Neutrophils/100 WBC (Bld) 59.0 % Normal 43.0-75.[address] [facility] Comment on above: Performed By: #### C BC ####[facility] Cstgjnskfo2797 [place] [address]Dr. Garima Pulliam Platelet mean volume (Bld) [Entitic vol] 8.7 fL Critically low 9.5-13.[address] [facility] Comment on above: Performed By: #### C BC ####[facility] Ntzpogaolp6341 [place] [address]Dr. Garima Pulliam PLT 182 103/ul Normal 150-[address] [facility] Comment on above: Performed By: #### C BC ####[facility] Zoyhuovcsy4624 [place] [id number]. Garima Pulliam RBC 4.74 106/ul Normal 4.70-6.[address] [facility] Comment on above: Performed By: #### C BC ####[facility] Lfcdbnupnx[address] [place], [place] [address]Dr. Garima Pulilam WBC 8.7 103/ul Normal 4.0-11.[address] [facility] Comment on above: Performed By: #### C BC ####[facility] Pnkryrdvsn[address] [place], [place] [address]Dr. Garima Pulliam Covid-19 PCR (CVDTB)on 12-25 SARS-CoV-2 (COVID-19) RNA MARIE+probe Ql (Unsp spec) Not detected Normal NOT DETECTED [facility] Comment on above: Result Comment: When [...] for this test is supported by the Forwarder Operator of Health and Human Service's declaration [...] used). Performed By: #### C VDTBH ####[facility] Kikqmthtie[address] [place] [address]Dr. Garima Pulliam PROF 14(COMP METB)on 023 Albumin [Mass/Vol] 3.6 g/dL Normal 3.4-5.0 [facility] Comment on above: Performed By: #### C MP, BNP, HSTROPN ####[facility] Bnksqokgvd17[address] [place] [address]Dr. Garima Pulliam Albumin/Globulin [Mass ratio] 1.5 {ratio} Normal [facility] Comment on above: Performed By: #### C MP, BNP, HSTROPN ####[facility] Gmebdunnym54[address] [place] [address]Dr. Garima Pulliam ALP [Catalytic activity/Vol] 79 U/L Normal 46-[address] [facility] Comment on above: Performed By: #### C MP, BNP, HSTROPN ####[facility] Caknjkiwik0785 [place] [address]Dr. Garima Pulliam ALT [Catalytic activity/Vol] 27 U/L Normal 16-63 [facility] Comment on above: Performed By: #### C MP, BNP, HSTROPN ####[facility] Hvxsbidqce3006 [place] [address]Dr. Garima Pulliam Anion gap [Moles/Vol] 11.7 mmol/L Normal [facility] Comment on above: Performed By: #### C MP, BNP, HSTROPN ####[facility] Qfgdbgoqeo8704 [place] [address]Dr. Garima Pulliam AST [Catalytic activity/Vol] 21 U/L Normal 15-37 [facility] Comment on above: Performed By: #### C MP, BNP, HSTROPN ####[facility] Wyrbevgyes76[address] [place] [address]Dr. Garima Pulliam Bilirubin [Mass/Vol] 0.3 mg/dL Normal 0.2-1.0 [facility] Comment on above: Performed By: #### C MP, BNP, HSTROPN ####[facility] Jwxugdocml1217 [place] [address]Dr. Garima Pulliam Calcium [Mass/Vol] 8.9 mg/dL Normal 8.5-10.1 [facility] Comment on above: Performed By: #### C MP, BNP, HSTROPN ####[facility] Msppeandap0169 [place] [address]Dr. Garima Pulliam Chloride [Moles/Vol] 107 mmol/L Normal 98-107 [facility] Comment on above: Performed By: #### C MP, BNP, HSTROPN ####[facility] Hfcpqmsbxz6099 [place] [address]Dr. Garima Pulliam CO2 [Moles/Vol] 26.0 mmol/L Normal 21.0-32.0 [facility] Comment on above: Performed By: #### C MP, BNP, HSTROPN ####[facility] Ysvyjfvexs4407 [place] [address]Dr. Garima Pulliam Creatinine [Mass/Vol] 0.65 mg/dL Critically low 0.70-1.30 [facility] Comment on above: Performed By: #### C MP, BNP, HSTROPN ####[facility] Hjemyndxds5[address] [place] [address]Dr. Yilan Pulliam EGFR-AF ITALIAN >60 Normal >=60 [facility] Comment on above: Performed By: #### C MP, BNP, HSTROPN ####[facility] Nsdrbkksnp7098 [place] [address]Dr. Garima Pulliam EGFR-NON AF ITALIAN >60 Normal >=60 [facility] Comment on above: Performed By: #### C MP, BNP, HSTROPN ####[facility] Kppkyytvjq5063 [place] [address]Dr. Garima Pulliam Globulin (S) [Mass/Vol] 2.4 g/dL Normal [facility] Comment on above: Performed By: #### C MP, BNP, HSTROPN ####[facility] Nqqfycqkyu[address] [place], [place] [address]Dr. Garima Pulliam Glucose [Mass/Vol] 85 mg/dL Normal 74-106 [facility] Comment on above: Performed By: #### C MP, BNP, HSTROPN ####[facility] Xsgfejmmxb9182 [place] [address]Dr. Garima Pulliam Potassium [Moles/Vol] 3.7 mmol/L Normal 3.5-5.1 [facility] Comment on above: Performed By: #### C MP, BNP, HSTROPN ####[facility] Zkbzxitsjg6703 [place] [address]Dr. Garima Pulliam Protein [Mass/Vol] 6.0 g/dL Critically low 6.4-8.2 [facility] Comment on above: Performed By: #### C MP, BNP, HSTROPN ####[facility] Hsbsifxdxp1707 [place] [address]Dr. Garima Pulliam Sodium [Moles/Vol] 141 mmol/L Normal 136-145 [facility] Comment on above: Performed By: #### C MP, BNP, HSTROPN ####[facility] Pvzstkxjws7768 [place] [address]Dr. Garima Pulliam Urea nitrogen [Mass/Vol] 5.0 mg/dL Critically low 7.0-18.0 [facility] Comment on above: Performed By: #### C MP, BNP, HSTROPN ####[facility] Rnihzegqse0238 [place] [address]Dr. Garima Pulliam Urea nitrogen/Creatinine [Mass ratio] 7.7 mg/mg Normal [facility] Comment on above: Performed By: #### C MP, BNP, HSTROPN ####[facility] Oykwuyxrgu[address] [place] [address]Dr. Garima Pulliam PROTIMEon 01-12-2023 INR Coag (PPP) [Relative time] 1.16 {INR} Normal [facility] Comment on above: Performed By: #### P TT, PT ####[facility] Qtvvtdpkww8876 [place] [address]Dr. Garima Pulliam INR GUIDELINES SEE BELOW Normal [facility] Comment on above: Result Comment: WESLEY RED INR: 2.0 - 3.0 CONDITIONS NOT LISTED BELOW 2.5 - 3.5 FOR PROSTHETIC HEART VALVE REPLACEMENT 2.5 - 3.5 RECURRENT THROMBOSIS Performed By: #### P TT, PT ####[facility] Wkzwnfpguq[address] [place], [place] [address]Dr. Garima Pulliam PT Coag (PPP) [Time] 12.2 s Critically high 9.0-11.[address] [facility] Comment on above: Performed By: #### P TT, PT ####[facility] Fcpovxguua6144 [place] [address]Dr. Garima Pulliam PTTon 01-12-2023 aPTT Coag (Bld) [Time] 29.1 s Normal 22.3-36.[address] [facility] Comment on above: Performed By: #### P TT, PT ####[facility] [address]ktyfluyzp[address] [place], [place] [address]Dr. Garima Pulliam TROPONIN, HIGH SENSITIVITYon 01-12-2023 HSTROP 10.3 pg/mL Normal 4.0-76.[address] [facility] Comment on above: Result Comment: CUT- OFF POINTS HAVE BEEN ESTABLISHED BASED ON THE FOURTH UNIVERSAL DEFINITIONS OF MYOCARDIALINFARCTION. THE UPPER REFERENCE LIMIT (URL) OF TROPONIN, DEFINED THE 99TH PERCENTILE OFcTnI DISTRIBUTION IN A REFERENCE POPULATION, HAS BEEN CONFIRMED THE DECISION THRESHOLDFOR [place] DIAGNOSIS. Performed By: #### H STROPN ####[facility] Cuzxdiwnue2570 [place] [address]Dr. Garima Pulliam HSTROP 9.2 pg/mL Normal 4.0-76.1 [facility] Comment on above: Result Comment: CUT- OFF POINTS HAVE BEEN ESTABLISHED BASED ON THE FOURTH UNIVERSAL DEFINITIONS OF MYOCARDIALINFARCTION. THE UPPER REFERENCE LIMIT (URL) OF TROPONIN, DEFINED THE 99TH PERCENTILE OFcTnI DISTRIBUTION IN A REFERENCE POPULATION, HAS BEEN CONFIRMED THE DECISION THRESHOLDFOR [place] DIAGNOSIS. Performed By: #### C MP, BNP, HSTROPN ####[facility] Yyknrzapxs2665 [place] [address]Dr. Garima Pulliam XR CHEST 1 Von 01-12-2023 XR CHEST 1 V Normal [facility] XR CHEST 1 Von 01-01-2023 XR CHEST [address] [facility] CARDIAC NASH 3-6on 3 CK [Catalytic activity/Vol] 196 U/L Normal 39-308 [facility] Comment on above: Performed By: #### C MREP ####[facility] Aaqffpvbrw4936 [place] [address]Dr. Garima Pulliam CK.MB [Mass/Vol] 7.41 ng/mL Critically high <=3.60 [facility] Comment on above: Performed By: #### C MREP ####[facility] Felblximwu8744 [place] [address]Dr. Garima Pulliam HSTROP 10.3 pg/mL Normal 4.0-76.[address] [facility] Comment on above: Result Comment: CUT- OFF POINTS HAVE BEEN ESTABLISHED BASED ON THE FOURTH UNIVERSAL DEFINITIONS OF MYOCARDIALINFARCTION. THE UPPER REFERENCE LIMIT (URL) OF TROPONIN, DEFINED THE 99TH PERCENTILE OFcTnI DISTRIBUTION IN A REFERENCE POPULATION, HAS BEEN CONFIRMED THE DECISION THRESHOLDFOR [place] DIAGNOSIS. Performed By: #### C MREP ####[facility] Ewesusrstk9375 [place] [id number]. Garima Pulliam XR CHEST 1 Von 12-26-2022 XR CHEST 1 V Normal [facility] BNPon 12-25-2022 Natriuretic peptide B (Bld) [Mass/Vol] 98.0 pg/mL Normal <=900.[address] [facility] Comment on above: Performed By: #### B MARVIN FRENCH CMADM ####[facility] Osmvlcvmjz1806 [place] [address]Dr. Garima Pulliam CARDIAC NASH ADMITon 023 CK [Catalytic activity/Vol] 208 U/L Normal 39-[address] [facility] Comment on above: Performed By: #### B MARVIN FRENCH CMADM ####[facility] Xutsgngdij3056 [place] [address]Dr. Garima Pulliam CK.MB [Mass/Vol] 7.63 ng/mL Critically high <=3.[address] [facility] Comment on above: Performed By: #### B MARVIN FRENCH CMADM ####[facility] Rljarctdum[address] [place], [place] [address]Dr. Garima Pulliam HSTROP 8.8 pg/mL Normal 4.0-76.[address] [facility] Comment on above: Result Comment: CUT- OFF POINTS HAVE BEEN ESTABLISHED BASED ON THE FOURTH UNIVERSAL DEFINITIONS OF MYOCARDIALINFARCTION. THE UPPER REFERENCE LIMIT (URL) OF TROPONIN, DEFINED THE 99TH PERCENTILE OFcTnI DISTRIBUTION IN A REFERENCE POPULATION, HAS BEEN CONFIRMED THE DECISION THRESHOLDFOR [place] DIAGNOSIS. Performed By: #### B MARVIN FRENCH CMADM ####[facility] Tesygxmeey70[address] [place], [place] [address]Dr. Garima Pulliam DORIS 83 ng/mL Normal 16-[address] [facility] Comment on above: Performed By: #### B MARVIN FRENCH CMADM ####[facility] Ryntbznvgj[address] [place], [place] [address]Dr. Garima Pulliam CBC AUTO DIFFon 12-25-2022 BASO # 0.0 103/ul Normal 0.0-0.[address] [facility] Comment on above: Performed By: #### C BC ####[facility] Ddfksjlizw67[address] [place], [place] [address]Dr. Garima Pulliam Basophils/100 WBC (Bld) 0.0 % Critically low 0.2-2.[address] [facility] Comment on above: Performed By: #### C BC ####[facility] Etcayedflt2469 [place] [address]Dr. Garima Pulliam EO # 0.0 103/ul Normal 0.0-0.[address] [facility] Comment on above: Performed By: #### C BC ####[facility] Uzbplefqdw4[address] [place], [place] [address]Dr. Garima Pulliam Eosinophils/100 WBC (Bld) 0.7 % Critically low 0.9-7.0 [facility] Comment on above: Performed By: #### C BC ####[facility] Zqodkwjzsg[address] [place], [place] [address]Dr. Garima Pulliam Erythrocyte distribution width (RBC) [Ratio] 13.4 % Normal 11.0-15.0 [facility] Comment on above: Performed By: #### C BC ####[facility] Hncfvfiyds86[address] [place], [place] [address]Dr. Garima Pulliam Hematocrit (Bld) [Volume fraction] 42.9 % Normal 42.0-54.0 [facility] Comment on above: Performed By: #### C BC ####[facility] Ffdlbpppmf[address] [place], [place] [address]Dr. Garima Pulliam Hemoglobin (Bld) [Mass/Vol] 14.4 g/dL Normal 14.0-18.0 [facility] Comment on above: Performed By: #### C BC ####[facility] Hdzubfotal[address] [place], [place] [address]Dr. Garima Pulliam IG # 0.00 10e3/ul Normal 0.00-0.[address] [facility] Comment on above: Performed By: #### C BC ####[facility] Xmyyrpljnk[address] [place], [place] [address]Dr. Garima Pulliam IG % 0.0 % Normal 0.0-0.[address] [facility] Comment on above: Performed By: #### C BC ####[facility] Mvfyacdebz79[address] [place], [place] [address]Dr. Garima Pulliam LYMPH # 2.4 103/ul Normal 1.2-3.[address] [facility] Comment on above: Performed By: #### C BC ####[facility] Hxqbhntssx3607 [place] [id number]. Chapisrenu Pulliam Lymphocytes/100 WBC (Bld) 29.2 % Normal 20.5-60.0 [facility] Comment on above: Performed By: #### C BC ####[facility] Ayuotcuoar84[address] [place] [id number]. Garima Pulliam MANUAL DIFF REQ NO Normal [facility] Comment on above: Performed By: #### C BC ####[facility] Qlrzhnczgu8677 [place] [id number]. Garima Pulliam MCH (RBC) [Entitic mass] 30.7 pg Normal 25.9-34.0 [facility] Comment on above: Performed By: #### C BC ####[facility] Joozhhfbmv[address] [place], [place] [address]Dr. Garima Pulliam MCHC (RBC) [Mass/Vol] 33.6 g/dL Normal 29.9-35.[address] [facility] Comment on above: Performed By: #### C BC ####[facility] Fdsytadrlv[address] [place], [place] [address]Dr. Garima Pulliam MCV (RBC) [Entitic vol] 91.5 fL Normal 80.0-94.0 [facility] Comment on above: Performed By: #### C BC ####[facility] Pbdlbapjuj224[address] [place], [place] [address]Dr. Garima Pulliam MONO # 0.0 103/ul Critically low 0.3-0.8 [facility] Comment on above: Performed By: #### C BC ####[facility] Xhdglsndwx3985 [place] [address]Dr. Garima Pulliam Monocytes/100 WBC (Bld) 8.0 % Normal 1.7-12.[address] [facility] Comment on above: Performed By: #### C BC ####[facility] Rmhhelenvd13[address] [place], [place] [address]Dr. Garima Pulliam NEUT # 5.1 103/ul Normal 1.4-6.[address] [facility] Comment on above: Performed By: #### C BC ####[facility] Mfftiqfhnm6475 [place], [place] [address]Ap. Garima Pulliam Neutrophils/100 WBC (Bld) 62.8 % Normal 43.0-75.0 [facility] Comment on above: Performed By: #### C BC ####[facility] Bngdqoyksj7181 [place], [place] [address]Kh. Garima Pulliam Platelet mean volume (Bld) [Entitic vol] 8.6 fL Critically low 9.5-13.5 [facility] Comment on above: Performed By: #### C BC ####[facility] Qjlmawjysb9283 [place] [id number]. Garima Pulliam PLT 200 103/ul Normal 150-[address] [facility] Comment on above: Performed By: #### C BC ####[facility] Gtkgsfewxz0081 [place] [id number]. Garima Pulliam RBC 4.69 106/ul Critically low 4.70-6.10 [facility] Comment on above: Performed By: #### C BC ####[facility] Stwhczxukb4463 [place], [place] [address]Ct. Garima Pulliam WBC 8.2 103/ul Normal 4.0-11.0 [facility] Comment on above: Performed By: #### C BC ####[facility] Uxardujmfz0889 [place], [place] [address]Al. Garima Pulliam [facility]on SARS-CoV-2 (COVID-19) RNA MARIE+probe Ql (Unsp spec) Not detected Normal NOT DETECTED [facility] Comment on above: Result Comment: When [...] for this test is supported by the Forwarder Operator of Health and Human Service's declaration [...] used). Performed By: #### C VDTBH ####[facility] Zkuiylunfl17[address] [place], [place] [address]Dr. Garima Pulliam INFLUENZA A AND B AGon 12-25 INFLUANEGH SEE BELOW Normal [facility] Comment on above: Result Comment: Nega tive for Flu A protein angiten. Infection due to Flu A cannot be ruled out. Flu A angiten in the sample may be below the detection limit of the test. Performed By: #### I NFLUAB ####[facility] F[address]bkxjwdb06[address] [place], [place] [address]Dr. Garima Pulliam INFLUBNEGH SEE BELOW Normal [facility] Comment on above: Result Comment: Nega tive for Flu B protein antigen. Infection due to Flu B cannot be ruled out. Flu B antigen in the sample may be below the detection limit of the test. Performed By: #### I NFLUAB ####[facility] Diyxficpgn270[address] [place], [place] [address]Dr. Garima Pulliam INFLUENZA A AG Negative Normal NEGATIVE SEE COMMENT [facility] Comment on above: Performed By: #### I NFLUAB ####[facility] Trvcwvjxjj46[address] [place], [place] [address]Dr. renu [facility] INFLUENZA B AG Negative Normal NEGATIVE SEE COMMENT [facility] Comment on above: Performed By: #### I NFLUAB ####[facility] Xfxtiqdszd[address] [place], [place] [address]Dr. Garima Pulliam PROF CHEM 8 (BAS METB)on Anion gap [Moles/Vol] 11.1 mmol/L Normal [facility] Comment on above: Performed By: #### B LIME SLAKER, BMP, CMADM ####[facility] [address]iksluqsnd[address] [place], [place] [address]Dr. Garima Pulliam Calcium [Mass/Vol] 8.5 mg/dL Normal 8.5-10.1 [facility] Comment on above: Performed By: #### B LIME SLAKER, MARVIN, CMADM ####[facility] Wfryhvmamr5486 [place] [id number]. Garima Pulliam Chloride [Moles/Vol] 106 mmol/L Normal 98-107 [facility] Comment on above: Performed By: #### B LIME SLAKER, BMP, CMADM ####[facility] Ddnxkqhoch4332 [place] [address]Dr. Garima Pulliam CO2 [Moles/Vol] 27.4 mmol/L Normal 21.0-32.0 [facility] Comment on above: Performed By: #### B LIME SLAKER, MARVIN, CMADM ####[facility] Kysxlevyyc5453 [place] [address]Dr. Garima Pulliam Creatinine [Mass/Vol] 0.65 mg/dL Critically low 0.70-1.30 [facility] Comment on above: Performed By: #### B LIME SLAKER, MARVIN, CMADM ####[facility] Lmhdlkaiur9553 [place] [address]Dr. Garima Pulliam EGFR-AF ITALIAN >60 Normal >=60 [facility] Comment on above: Performed By: #### B LIME SLAKER, BMP, CMADM ####[facility] Qkqcmycxyh4078 [place] [address]Dr. Garima Pulliam EGFR-NON AF ITALIAN >60 Normal >=60 [facility] Comment on above: Performed By: #### B LIME SLAKER, BMP, CMADM ####[facility] Oijzvwfglp5324 [place] [address]Dr. Garima Pulliam Glucose [Mass/Vol] 140 mg/dL Critically high 74-106 [facility] Comment on above: Performed By: #### B LIME SLAKER, BMP, CMADM ####[facility] Ketljsfvct8538 [place] [address]Dr. Garima Pulliam Potassium [Moles/Vol] 3.5 mmol/L Normal 3.5-5.1 [facility] Comment on above: Performed By: #### B LIME SLAKER, BMP, CMADM ####[facility] [address]rntetmy[address] [place] [address]Dr. Garima Pulliam Sodium [Moles/Vol] 141 mmol/L Normal 136-145 [facility] Comment on above: Performed By: #### B LIME SLAKER, BMP, CMADM ####[facility] Ddidrbaaot[address] [place] [address]Dr. Garima Pulliam Urea nitrogen [Mass/Vol] 8.0 mg/dL Normal 7.0-18.0 [facility] Comment on above: Performed By: #### B LIME SLAKER, BMP, CMADM ####[facility] Ccggeglnlg[address] [place] [address]Dr. Garima Pulliam Urea nitrogen/Creatinine [Mass ratio] 12.3 mg/mg Normal [facility] Comment on above: Performed By: #### B LIME SLAKER, BMP, CMADM ####[facility] Brnsdwmgtf[address] [place], [place] [address]Dr. Garima Pulliam CARDIAC NASH ADMITon 023 CK [Catalytic activity/Vol] 165 U/L Normal 39-308 [facility] Comment on above: Performed By: #### B DAVID, CMADM ####[facility] Socjthbsvq[address] [place], [place] [address]Dr. Garima Pulliam CK.MB [Mass/Vol] 6.48 ng/mL Critically high <=3.60 [facility] Comment on above: Performed By: #### B MP, CMADM ####[facility] Xbnuupegcz[address] [place], [place] [address]Dr. Garima Pulliam HSTROP 11.7 pg/mL Normal 4.0-76.1 [facility] Comment on above: Result Comment: CUT- OFF POINTS HAVE BEEN ESTABLISHED BASED ON THE FOURTH UNIVERSAL DEFINITIONS OF MYOCARDIALINFARCTION. THE UPPER REFERENCE LIMIT (URL) OF TROPONIN, DEFINED THE 99TH PERCENTILE OFcTnI DISTRIBUTION IN A REFERENCE POPULATION, HAS BEEN CONFIRMED THE DECISION THRESHOLDFOR [place] DIAGNOSIS. Performed By: #### B MP, CMADM ####[facility] Rzccospcrn[address] [place], [place] [address]Dr. Garima Pulliam DORIS 83 ng/mL Normal 16-[address] [facility] Comment on above: Performed By: #### B MP, CMADM ####[facility] Ivxotsbscd[address] [place] [address]Dr. Garima Pulliam CBC AUTO DIFFon 12-10-2022 BASO # 0.0 103/ul Normal 0.0-0.[address] [facility] Comment on above: Performed By: #### C BC ####[facility] Npmwkxjswn14[address] [place], [place] [address]Dr. Garima Heraclio Basophils/100 WBC (Bld) 0.3 % Normal 0.2-2.[address] [facility] Comment on above: Performed By: #### C BC ####[facility] Nftsnlauzw054[address] [place], [place] [address]Dr. Garima Pulliam EO # 0.1 103/ul Normal 0.0-0.[address] [facility] Comment on above: Performed By: #### C BC ####[facility] Irsejbnndp994[address] [place], [place] [address]Dr. Garima Pulliam Eosinophils/100 WBC (Bld) 0.4 % Critically low 0.9-7.[address] [facility] Comment on above: Performed By: #### C BC ####[facility] Kqooxjamvr35[address] [place], [place] [address]Dr. Garima Pulliam Erythrocyte distribution width (RBC) [Ratio] 13.2 % Normal 11.0-15.[address] [facility] Comment on above: Performed By: #### C BC ####[facility] Kmrsofotfz34[address] [place], [place] [address]Dr. Garima Pulliam Hematocrit (Bld) [Volume fraction] 42.4 % Normal 42.0-54.[address] [facility] Comment on above: Performed By: #### C BC ####[facility] Jbnhhlprup20[address] [place], [place] [address]Dr. Garima Pulliam Hemoglobin (Bld) [Mass/Vol] 14.4 g/dL Normal 14.0-18.[address] [facility] Comment on above: Performed By: #### C BC ####[facility] [address]rjuvcqj[address] [place] [id number]. Garima Heraclio IG # 0.05 10e3/ul Critically high 0.00-0.03 [facility] Comment on above: Performed By: #### C BC ####[facility] V[address]ywignwal[address] [place] [address]Dr. Garima Heraclio IG % 0.4 % Normal 0.0-0.[address] [facility] Comment on above: Performed By: #### C BC ####[facility] Mtotdmyxwo344[address] [place], [place] [address]Dr. Garima Pulliam LYMPH # 0.8 103/ul Critically low 1.2-3.8 [facility] Comment on above: Performed By: #### C BC ####[facility] Lpqihosmrk3417[address] [place], [place] [address]Dr. Chapisrenu Pulliam Lymphocytes/100 WBC (Bld) 6.5 % Critically low 20.5-60.[address] [facility] Comment on above: Performed By: #### C BC ####[facility] Sxxkvfjfpi15[address] [place], [place] [address]Dr. Chapisrenu Pulliam MANUAL DIFF REQ NO Normal [facility] Comment on above: Performed By: #### C BC ####[facility] Clxfeqrdys00[address] [place], [place] [address]DrAdalberto Garima Pulliam MCH (RBC) [Entitic mass] 30.5 pg Normal 25.9-34.[address] [facility] Comment on above: Performed By: #### C BC ####[facility] Rlhqhohpqz6[address] [place], [place] [address]DrAdalberto Garima Heraclio MCHC (RBC) [Mass/Vol] 34.0 g/dL Normal 29.9-35.[address] [facility] Comment on above: Performed By: #### C BC ####[facility] Qsuysmnbia027[address] [place], [place] [address]DrAdalberto Garima Heraclio MCV (RBC) [Entitic vol] 89.8 fL Normal 80.0-94.[address] [facility] Comment on above: Performed By: #### C BC ####[facility] Znyebwdvdh5[address] [place], [place] [address]Dr. Garima Pulliam MONO # 0.2 103/ul Critically low 0.3-0.8 [facility] Comment on above: Performed By: #### C BC ####[facility] Nuwyobrsfn6[address] [place] [id number]. Garima Pulliam Monocytes/100 WBC (Bld) 2.0 % Normal 1.7-12.[address] [facility] Comment on above: Performed By: #### C BC ####[facility] Eodvjthvlg[address] [place] [address]Dr. Chapisrenu Heraclio NEUT # 10.5 103/ul Critically high 1.4-6.5 The [facility] Comment on above: Performed By: #### C BC ####[facility] Fniindnbsf8[address] [place] [address]Dr. Garima Pulliam Neutrophils/100 WBC (Bld) 90.4 % Critically high 43.0-75.[address] [facility] Comment on above: Performed By: #### C BC ####[facility] Vdvtumtbui50[address] [place] [address]Dr. Garima Pulliam Platelet mean volume (Bld) [Entitic vol] 9.4 fL Critically low 9.5-13.[address] [facility] Comment on above: Performed By: #### C BC ####[facility] Ktxqxqqmlu7[address] [place] [address]Dr. Garima Pulliam PLT 198 103/ul Normal 150-[address] [facility] Comment on above: Performed By: #### C BC ####[facility] Uthozxdwpb35[address] [place] [address]Dr. Garima Pulliam RBC 4.72 106/ul Normal 4.70-6.[address] [facility] Comment on above: Performed By: #### C BC ####[facility] Docjtojsuk550[address] [place] [id number]. Garima Pulliam WBC 11.6 103/ul Critically high 4.0-11.0 The [facility] Comment on above: Performed By: #### C BC ####[facility] Nsqbguhnae40[address] [place] [address]DrAdalberto Pulliam PROF CHEM 8 (BAS METB)on Anion gap [Moles/Vol] 11.3 mmol/L Normal [facility] Comment on above: Performed By: #### B NANCY HERNANDEZ ####[facility] Dmhgpbnxvx36[address] [place] [address]Dr. Garima Pulliam Calcium [Mass/Vol] 8.9 mg/dL Normal 8.5-10.1 [facility] Comment on above: Performed By: #### B NANCY HERNANDEZ ####[facility] Hgwqypnaun[address] [place] [address]Dr. Garima Pulliam Chloride [Moles/Vol] 103 mmol/L Normal 98-107 [facility] Comment on above: Performed By: #### B NANCY HERNANDEZ ####[facility] Ctircshyzc[address] [place], [place] [address]Dr. Garima Pulliam CO2 [Moles/Vol] 28.2 mmol/L Normal 21.0-32.0 [facility] Comment on above: Performed By: #### NANCY Larkin MP ####[facility] Cxpcjshqjo9[address] [place] [address]Dr. Chapisrenu Pulliam Creatinine [Mass/Vol] 0.60 mg/dL Critically low 0.70-1.30 [facility] Comment on above: Performed By: #### NANCY Larkin MP ####[facility] Hjxnclpaon[address] [place] [address]Dr. Garima Pulliam EGFR-AF ITALIAN >60 Normal >=60 [facility] Comment on above: Performed By: #### NANCY Larkin MP ####[facility] Fpymvmhyjg22[address] [place] [address]Dr. Garima Pulliam EGFR-NON AF ITALIAN >60 Normal >=60 [facility] Comment on above: Performed By: #### NANCY Larkin MP ####[facility] Ryentyishr[address] [place], [place] [address]Dr. Garima Pulliam Glucose [Mass/Vol] 166 mg/dL Critically high 74-106 [facility] Comment on above: Performed By: #### B MP, CMADM ####[facility] Zsbwwzwooq8[address] [place] [address]Dr. Garima Pulliam Potassium [Moles/Vol] 3.5 mmol/L Normal 3.5-5.[address] [facility] Comment on above: Performed By: #### B MP, CMADM ####[facility] Lqutqvqpak75[address] [place] [address]Dr. Garima Pulliam Sodium [Moles/Vol] 139 mmol/L Normal 136-145 [facility] Comment on above: Performed By: #### B DAVID, CMADM ####[facility] Cifsignuvk340[address] [place] [address]Dr. Garima Heraclio Urea nitrogen [Mass/Vol] 9.0 mg/dL Normal 7.0-18.[address] [facility] Comment on above: Performed By: #### B DAVID, NANCY ####[facility] Xfldetqpfv[address] [place], [place] [address]Dr. Garima Heraclio Urea nitrogen/Creatinine [Mass ratio] 15.0 mg/mg Normal [facility] Comment on above: Performed By: #### B DAVID, CMAANA ROSA ####[facility] Atcmbkcjph8[address] [place], [place] [address]Dr. Garima Pulliam XR CHEST 1 Von 12-10-2022 XR CHEST [address] [facility] BNPon 11-27-2022 Natriuretic peptide B (Bld) [Mass/Vol] 95.0 pg/mL Normal <=900.[address] [facility] Comment on above: Performed By: #### C MP, HSTROPN, BNP ####[facility] Ttryijnoxe05[address] [place], [place] [address]Dr. Garima Heraclio CBC AUTO DIFFon 11-27-2022 BASO # 0.0 103/ul Normal 0.0-0.[address] [facility] Comment on above: Performed By: #### C BC ####[facility] Mwozmmaaze85[address] [place], [place] [address]Dr. Garima Heraclio Basophils/100 WBC (Bld) 0.2 % Normal 0.2-2.[address] [facility] Comment on above: Performed By: #### C BC ####[facility] Qhzepaqpim9834 [place] [id number]. Garima Pulliam EO # 0.2 103/ul Normal 0.0-0.[address] [facility] Comment on above: Performed By: #### C BC ####[facility] Ohiyrifgqf4005 [place] [address]Dr. Garima Pulliam Eosinophils/100 WBC (Bld) 2.0 % Normal 0.9-7.[address] [facility] Comment on above: Performed By: #### C BC ####[facility] Xjfywlhdod4[address] [place], [place] [address]Dr. Garima Pulliam Erythrocyte distribution width (RBC) [Ratio] 13.2 % Normal 11.0-15.[address] [facility] Comment on above: Performed By: #### C BC ####[facility] Flscvnfecg[address] [place], [place] [address]Dr. Garima Pulliam Hematocrit (Bld) [Volume fraction] 42.4 % Normal 42.0-54.[address] [facility] Comment on above: Performed By: #### C BC ####[facility] Pfldsthkgt[address] [place], [place] [address]Dr. Garima Pulliam Hemoglobin (Bld) [Mass/Vol] 14.4 g/dL Normal 14.0-18.[address] [facility] Comment on above: Performed By: #### C BC ####[facility] Aiopojfklp17[address] [place], [place] [address]Dr. Garima Pulliam IG # 0.04 10e3/ul Critically high 0.00-0.03 The [facility] Comment on above: Performed By: #### C BC ####[facility] Yuzagoscje37[address] [place], [place] [address]Dr. Garima Pulliam IG % 0.4 % Normal 0.0-0.[address] [facility] Comment on above: Performed By: #### C BC ####[facility] Bxcyhfijwl6[address] [place], [place] [address]Dr. Garima Pulliam LYMPH # 2.2 103/ul Normal 1.2-3.[address] [facility] Comment on above: Performed By: #### C BC ####[facility] Okxxzrtdtz8073 [place] [id number]. Garima Pulliam Lymphocytes/100 WBC (Bld) 21.5 % Normal 20.5-60.[address] [facility] Comment on above: Performed By: #### C BC ####[facility] Zwszxukfsz42[address] [place] [address]Dr. Garima Heraclio MANUAL DIFF REQ NO Normal [facility] Comment on above: Performed By: #### C BC ####[facility] Knpkuzmxjl0326 [place] [id number]. Garima Heraclio MCH (RBC) [Entitic mass] 30.4 pg Normal 25.9-34.[address] [facility] Comment on above: Performed By: #### C BC ####[facility] Xsuuoxozuj23[address] [place] [address]Dr. Garima Heraclio MCHC (RBC) [Mass/Vol] 34.0 g/dL Normal 29.9-35.[address] [facility] Comment on above: Performed By: #### C BC ####[facility] Ylwwuciaxs2518 [place] [address]Dr. Garima Pulliam MCV (RBC) [Entitic vol] 89.6 fL Normal 80.0-94.[address] [facility] Comment on above: Performed By: #### C BC ####[facility] Ulvlbvrhvo9159 [place] [id number]. Garima Pulliam MONO # 0.8 103/ul Normal 0.3-0.[address] [facility] Comment on above: Performed By: #### C BC ####[facility] Fucebefzzi8342 [place] [address]Dr. Chapisrenu Pulliam Monocytes/100 WBC (Bld) 7.7 % Normal 1.7-12.[address] [facility] Comment on above: Performed By: #### C BC ####[facility] Lowvsufxwk[address] [place], [place] [address]Dr. Garima Pulliam NEUT # 7.0 103/ul Critically high 1.4-6.5 [facility] Comment on above: Performed By: #### C BC ####[facility] Gvwozipoli7379 [place] [id number]. Garima Pulliam Neutrophils/100 WBC (Bld) 68.2 % Normal 43.0-75.0 [facility] Comment on above: Performed By: #### C BC ####[facility] Pnfqgzahzh4730 [place] [id number]. Chapisrenu Pulliam Platelet mean volume (Bld) [Entitic vol] 8.9 fL Critically low 9.5-13.5 [facility] Comment on above: Performed By: #### C BC ####[facility] Nwrsqpseyf99[address] [place] [address]Dr. Garima Pulliam PLT 222 103/ul Normal 150-450 [facility] Comment on above: Performed By: #### C BC ####[facility] Etwsiupugu1999 [place] [address]Dr. Garima Pulliam RBC 4.73 106/ul Normal 4.70-6.[address] [facility] Comment on above: Performed By: #### C BC ####[facility] Zgqwtgemlf7336 [place] [address]Dr. Garima Pulliam WBC 10.3 103/ul Normal 4.0-11.0 [facility] Comment on above: Performed By: #### C BC ####[facility] Wvxqqthupd1149 [place] [address]Dr. Garima Pulliam PROF 14(COMP METB)on 023 Albumin [Mass/Vol] 3.7 g/dL Normal 3.4-5.0 [facility] Comment on above: Performed By: #### C MP, HSTROPN, BNP ####[facility] Ilczjeiztg2425 [place] [address]Dr. Chapisrenu Pulliam Albumin/Globulin [Mass ratio] 1.5 {ratio} Normal [facility] Comment on above: Performed By: #### C MP, HSTROPN, BNP ####[facility] Ucuyscwevv7567 [place] [address]Dr. Garima Pulliam ALP [Catalytic activity/Vol] 79 U/L Normal 46-[address] [facility] Comment on above: Performed By: #### C MP, HSTROPN, BNP ####[facility] Bafknbeika96[address] [place] [address]Dr. Garima Pulliam ALT [Catalytic activity/Vol] 32 U/L Normal 16-63 [facility] Comment on above: Performed By: #### C MP, HSTROPN, BNP ####[facility] Snrgfsqvln6814 [place] [address]Dr. Garima Pulliam Anion gap [Moles/Vol] 9.5 mmol/L Normal [facility] Comment on above: Performed By: #### C MP, HSTROPN, BNP ####[facility] Ycvsfdkbfq[address] [place], [place] [address]Dr. Garima Pulliam AST [Catalytic activity/Vol] 25 U/L Normal 15-37 [facility] Comment on above: Performed By: #### C MP, HSTROPN, BNP ####[facility] Llhsgdcjdv[address] [place], [place] [address]Dr. Chapislan Pulliam Bilirubin [Mass/Vol] 0.4 mg/dL Normal 0.2-1.[address] [facility] Comment on above: Performed By: #### C MP, HSTROPN, BNP ####[facility] Ostfceybgh13[address] [place], [place] [address]Dr. Garima Pulliam Calcium [Mass/Vol] 8.9 mg/dL Normal 8.5-10.1 [facility] Comment on above: Performed By: #### C MP, HSTROPN, BNP ####[facility] Xowitnrwvg3824[address] [place], [place] [address]Dr. Chapislan Pulliam Chloride [Moles/Vol] 103 mmol/L Normal 98-[address] [facility] Comment on above: Performed By: #### C MP, HSTROPN, BNP ####[facility] Sxysyrwnqy474[address] [place], [place] [address]Dr. Yilan Pulliam CO2 [Moles/Vol] 28.6 mmol/L Normal 21.0-32.0 [facility] Comment on above: Performed By: #### C MP, HSTROPN, BNP ####[facility] Iukdhboesn8064 [place] [address]Dr. Garima Pulliam Creatinine [Mass/Vol] 0.72 mg/dL Normal 0.70-1.30 [facility] Comment on above: Performed By: #### C MP, HSTROPN, BNP ####[facility] Qhhbikaczn5804 [place] [address]Dr. Garima Pulliam EGFR-AF ITALIAN >60 Normal >=60 [facility] Comment on above: Performed By: #### C MP, HSTROPN, BNP ####[facility] Tthhdmtich4122 [place] [address]Dr. Garima Pulliam EGFR-NON AF ITALIAN >60 Normal >=60 [facility] Comment on above: Performed By: #### C MP, HSTROPN, BNP ####[facility] Efllbtmfww3792 [place] [address]Dr. Garima Pulliam Globulin (S) [Mass/Vol] 2.5 g/dL Normal [facility] Comment on above: Performed By: #### C MP, HSTROPN, BNP ####[facility] Gyefxlbode9716[address] [place], [place] [address]Dr. Garima Pulliam Glucose [Mass/Vol] 114 mg/dL Critically high 74-106 [facility] Comment on above: Performed By: #### C MP, HSTROPN, BNP ####[facility] Hmccoazhrm7[address] [place], [place] [address]Dr. Garima Pulliam Potassium [Moles/Vol] 4.1 mmol/L Normal 3.5-5.1 [facility] Comment on above: Performed By: #### C MP, HSTROPN, BNP ####[facility] Pwblvvbupu63[address] [place], [place] [address]Dr. Garima Pulliam Protein [Mass/Vol] 6.2 g/dL Critically low 6.4-8.2 [facility] Comment on above: Performed By: #### C MP, HSTROPN, BNP ####[facility] Mxxecqrusl[address] [place], [place] [address]Dr. Yilan Pulliam Sodium [Moles/Vol] 137 mmol/L Normal 136-145 [facility] Comment on above: Performed By: #### C MP, HSTROPN, BNP ####[facility] Kthewdeiql3869 [place] [address]Dr. Garima Pulliam Urea nitrogen [Mass/Vol] 13.0 mg/dL Normal 7.0-18.0 [facility] Comment on above: Performed By: #### C MP, HSTROPN, BNP ####[facility] Nsgidzjnnz1573 [place] [address]Dr. Garima Pulliam Urea nitrogen/Creatinine [Mass ratio] 18.1 mg/mg Normal [facility] Comment on above: Performed By: #### C MP, HSTROPN, BNP ####[facility] Evrkkrepof77[address] [place], [place] [address]Dr. Garima Pulliam TROPONIN, HIGH SENSITIVITYon 11-27-2022 HSTROP 11.8 pg/mL Normal 4.0-76.1 [facility] Comment on above: Result Comment: CUT- OFF POINTS HAVE BEEN ESTABLISHED BASED ON THE FOURTH UNIVERSAL DEFINITIONS OF MYOCARDIALINFARCTION. THE UPPER REFERENCE LIMIT (URL) OF TROPONIN, DEFINED THE 99TH PERCENTILE OFcTnI DISTRIBUTION IN A REFERENCE POPULATION, HAS BEEN CONFIRMED THE DECISION THRESHOLDFOR [place] DIAGNOSIS. Performed By: #### C MP, HSTROPN, BNP ####[facility] Femnvojewp[address] [place], [place] [address]Dr. Garima Pulliam XR CHEST 1 Von 11-27-2022 XR CHEST [address] [facility] BNPon 11-20-2022 Natriuretic peptide B (Bld) [Mass/Vol] 73.0 pg/mL Normal <=900.[address] [facility] Comment on above: Performed By: #### B MP, HSTROPN, BNP ####[facility] Xyugwbruxa[address] [place], [place] [address]Dr. Garima Pulliam CBC AUTO DIFFon 11-20-2022 BASO # 0.0 103/ul Normal 0.0-0.1 [facility] Comment on above: Performed By: #### C BC ####[facility] Gufiwwuxax8598 [place] [id number]. Garima Pulliam Basophils/100 WBC (Bld) 0.3 % Normal 0.2-2.[address] [facility] Comment on above: Performed By: #### C BC ####[facility] Sfldxeveen7096 [place] [id number]. Garima Pulliam EO # 0.2 103/ul Normal 0.0-0.[address] [facility] Comment on above: Performed By: #### C BC ####[facility] Utilrzrvhm9017 [place] [address]Dr. Garima Pulliam Eosinophils/100 WBC (Bld) 2.1 % Normal 0.9-7.[address] [facility] Comment on above: Performed By: #### C BC ####[facility] Rsalcobgzj9[address] [place], [place] [address]Dr. Garima Pulliam Erythrocyte distribution width (RBC) [Ratio] 13.2 % Normal 11.0-15.[address] [facility] Comment on above: Performed By: #### C BC ####[facility] Ztcmwniohz75[address] [place], [place] [address]Dr. Garima Pulliam Hematocrit (Bld) [Volume fraction] 43.4 % Normal 42.0-54.[address] [facility] Comment on above: Performed By: #### C BC ####[facility] Feq[address]faenp[address] [place], [place] [address]Dr. Garima Pulliam Hemoglobin (Bld) [Mass/Vol] 14.6 g/dL Normal 14.0-18.[address] [facility] Comment on above: Performed By: #### C BC ####[facility] Ejbwbjgaqm0227 [place] [id number]. Graima Pulliam IG # 0.02 10e3/ul Normal 0.00-0.[address] [facility] Comment on above: Performed By: #### C BC ####[facility] Ebwcxtpvmr8687 [place] [address]Dr. Garima Pulliam IG % 0.2 % Normal 0.0-0.[address] [facility] Comment on above: Performed By: #### C BC ####[facility] Fffwutatnq6328 [place] [id number]. Garima Heraclio LYMPH # 2.1 103/ul Normal 1.2-3.[address] [facility] Comment on above: Performed By: #### C BC ####[facility] Oanibgipno6294 [place] [id number]. Garima Heraclio Lymphocytes/100 WBC (Bld) 19.2 % Critically low 20.5-60.[address] [facility] Comment on above: Performed By: #### C BC ####[facility] Oufjfanoxy4015 [place] [id number]. Chapisrenu Pulliam MANUAL DIFF REQ NO Normal [facility] Comment on above: Performed By: #### C BC ####[facility] Ceauemqnch0177 [place] [id number]. Garima Heracilo MCH (RBC) [Entitic mass] 30.4 pg Normal 25.9-34.[address] [facility] Comment on above: Performed By: #### C BC ####[facility] Nxfnfdjofb5217 [place] [address]Dr. Garima Pulliam MCHC (RBC) [Mass/Vol] 33.6 g/dL Normal 29.9-35.[address] [facility] Comment on above: Performed By: #### C BC ####[facility] Rdunivcwow2912 [place] [id number]. Garima Heraclio MCV (RBC) [Entitic vol] 90.4 fL Normal 80.0-94.[address] [facility] Comment on above: Performed By: #### C BC ####[facility] Gnfuoimrdx6429 [place] [id number]. Garima Heraclio MONO # 0.6 103/ul Normal 0.3-0.[address] [facility] Comment on above: Performed By: #### C BC ####[facility] Bhbkogfnih2973 [place] [address]Dr. Garima Heraclio Monocytes/100 WBC (Bld) 5.8 % Normal 1.7-12.[address] [facility] Comment on above: Performed By: #### C BC ####[facility] Fniwhzlfbo2173 [place], [place] [address]Ca. Garima Pulliam NEUT # 7.8 103/ul Critically high 1.4-6.5 [facility] Comment on above: Performed By: #### C BC ####[facility] Mflmfgkfka3931 [place] [id number]. Garima Pulliam Neutrophils/100 WBC (Bld) 72.4 % Normal 43.0-75.[address] [facility] Comment on above: Performed By: #### C BC ####[facility] Japsxfvhtd8130 [place] [id number]. Garima Pulliam Platelet mean volume (Bld) [Entitic vol] 8.7 fL Critically low 9.5-13.[address] [facility] Comment on above: Performed By: #### C BC ####[facility] Kqpfbslydz1368 [place] [id number]. Garima Pulliam PLT 184 103/ul Normal 150-[address] [facility] Comment on above: Performed By: #### C BC ####[facility] Wjjvoembpj8993 [place], [place] [address]s. Garima Pulliam RBC 4.80 106/ul Normal 4.70-6.[address] [facility] Comment on above: Performed By: #### C BC ####[facility] Pkmdkzdunr[address] [place] [id number]. Garima Pulliam WBC 10.8 103/ul Normal 4.0-11.[address] [facility] Comment on above: Performed By: #### C BC ####[facility] Wgxxgkqqgb2391 [place] [id number]. Garima Pulliam [facility]24 SARS-CoV-2 (COVID-19) RNA MARIE+probe Ql (Unsp spec) Not detected Normal NOT DETECTED [facility] Comment on above: Result Comment: When [...] for this test is supported by the Forwarder Operator of Health and Human Service's declaration [...] used). Performed By: #### C VDTBH ####[facility] Frsbkwskgh[address] [place], [place] [address]Dr. Garima Pulliam INFLUENZA A AND B AGon 11-[facility] BELOW Normal [facility] Comment on above: Result Comment: Nega tive for Flu A protein angiten. Infection due to Flu A cannot be ruled out. Flu A angiten in the sample may be below the detection limit of the test. Performed By: #### I NFLUAB ####[facility] Uylbhbexbl[address] [place], [place] [address]Dr. Garima Pulliam INFLUBNEGH SEE BELOW Normal [facility] Comment on above: Result Comment: Nega tive for Flu B protein antigen. Infection due to Flu B cannot be ruled out. Flu B antigen in the sample may be below the detection limit of the test. Performed By: #### I NFLUAB ####[facility] Ltismoiavz[address] [place], [place] [address]Dr. Garima Pulliam INFLUENZA A AG Negative Normal NEGATIVE SEE COMMENT [facility] Comment on above: Performed By: #### I NFLUAB ####[facility] Krejzqzdzk[address] [place], [place] [address]Dr. Garima [facility] INFLUENZA B AG Negative Normal NEGATIVE SEE COMMENT [facility] Comment on above: Performed By: #### I NFLUAB ####[facility] Ovrlqxmtis12[address] [place], [place] [address]Dr. Garima Pulliam PROF CHEM 8 (BAS METB)on Anion gap [Moles/Vol] 8.2 mmol/L Normal [facility] Comment on above: Performed By: #### B MP, HSTROPN, BNP ####[facility] Hacykeyopd[address] [place] [address]Dr. Garima Pulliam Calcium [Mass/Vol] 8.7 mg/dL Normal 8.5-10.1 [facility] Comment on above: Performed By: #### B MP, HSTROPN, BNP ####[facility] Ukqrmisott[address] [place] [address]Dr. Garima Pulliam Chloride [Moles/Vol] 103 mmol/L Normal 98-107 [facility] Comment on above: Performed By: #### B MP, HSTROPN, BNP ####[facility] Bdtvlqjvck[address] [place], [place] [address]Dr. Garima Pulliam CO2 [Moles/Vol] 29.4 mmol/L Normal 21.0-32.0 The [facility] Comment on above: Performed By: #### B MP, HSTROPN, BNP ####[facility] Ecvjtyqwjj19[address] [place], [place] [address]Dr. Garima Pulliam Creatinine [Mass/Vol] 0.69 mg/dL Critically low 0.70-1.30 [facility] Comment on above: Performed By: #### B MP, HSTROPN, BNP ####[facility] Kmzybrfckp[address] [place] [address]Dr. Garima Pulliam EGFR-AF ITALIAN >60 Normal >=60 The [facility] Comment on above: Performed By: #### B MP, HSTROPN, BNP ####[facility] Njukuatnvh[address] [place], [place] [address]Dr. Garima Pulliam EGFR-NON AF ITALIAN >60 Normal >=60 [facility] Comment on above: Performed By: #### B MP, HSTROPN, BNP ####[facility] Kmyzgfelyy[address] [place] [address]Dr. Garima Pulliam Glucose [Mass/Vol] 209 mg/dL Critically high 74-106 T [facility] Comment on above: Performed By: #### B MP, HSTROPN, BNP ####[facility] Xzihcgjmyj9[address] [place] [address]Dr. Garima Pulliam Potassium [Moles/Vol] 3.6 mmol/L Normal 3.5-5.1 [facility] Comment on above: Performed By: #### B MP, HSTROPN, BNP ####[facility] Eefpujycei64[address] [place] [address]Dr. Garima Pulliam Sodium [Moles/Vol] 137 mmol/L Normal 136-145 The [facility] Comment on above: Performed By: #### B MP, HSTROPN, BNP ####[facility] Dpwjkrztby9463 [place] [address]Dr. Garima Pulliam Urea nitrogen [Mass/Vol] 11.0 mg/dL Normal 7.0-18.0 [facility] Comment on above: Performed By: #### B MP, HSTROPN, BNP ####[facility] Tnuhacwbxg14[address] [place] [address]Dr. Garima Pulliam Urea nitrogen/Creatinine [Mass ratio] 15.9 mg/mg Normal [facility] Comment on above: Performed By: #### B MP, HSTROPN, BNP ####[facility] Vfvcpqsnlh[address] [place] [address]Dr. Garima Pulliam TROPONIN, HIGH SENSITIVITYon 11-20-2022 HSTROP 8.7 pg/mL Normal 4.0-76.1 [facility] Comment on above: Result Comment: CUT- OFF POINTS HAVE BEEN ESTABLISHED BASED ON THE FOURTH UNIVERSAL DEFINITIONS OF MYOCARDIALINFARCTION. THE UPPER REFERENCE LIMIT (URL) OF TROPONIN, DEFINED THE 99TH PERCENTILE OFcTnI DISTRIBUTION IN A REFERENCE POPULATION, HAS BEEN CONFIRMED THE DECISION THRESHOLDFOR [place] DIAGNOSIS. Performed By: #### B MP, HSTROPN, BNP ####[facility] Pmboigmawd17[address] [place] [address]Dr. Garima Pulliam XR CHEST 1 Von 11-20-2022 XR CHEST [address] [facility] XR CHEST 1 Von 10-02-2022 XR CHEST [address] [facility] BNPon 09-29-2022 Natriuretic peptide B (Bld) [Mass/Vol] 107.0 pg/mL Normal <=900.[address] [facility] Comment on above: Performed By: #### C MP, BNP, CMADM ####[facility] Bgtgwudaii96[address] [place] [address]Dr. Garima Pulliam CARDIAC NASH ADMITon 022 CK [Catalytic activity/Vol] 190 U/L Normal 39-[address] [facility] Comment on above: Performed By: #### C MP, BNP, CMADM ####[facility] Fflzqwqvef7[address] [place] [address]Dr. Garima Heraclio CK.MB [Mass/Vol] 11.11 ng/mL Critically high <=3.60 [facility] Comment on above: Performed By: #### C MP, BNP, CMADM ####[facility] Zmlqasqjkq11[address] [place] [address]Dr. Garima Pulliam HSTROP 11.8 pg/mL Normal 4.0-76.[address] [facility] Comment on above: Result Comment: CUT- OFF POINTS HAVE BEEN ESTABLISHED BASED ON THE FOURTH UNIVERSAL DEFINITIONS OF MYOCARDIALINFARCTION. THE UPPER REFERENCE LIMIT (URL) OF TROPONIN, DEFINED THE 99TH PERCENTILE OFcTnI DISTRIBUTION IN A REFERENCE POPULATION, HAS BEEN CONFIRMED THE DECISION THRESHOLDFOR [place] DIAGNOSIS. Performed By: #### C MP, BNP, CMADM ####[facility] Xrfetwyygf04[address] [place] [address]Dr. Garima Pulliam DORIS 133 ng/mL Critically high 16-96 The [facility] Comment on above: Performed By: #### C MP, BNP, CMADM ####[facility] Ajwogpobcs230[address] [place] [address]Dr. Garima Heraclio CBC AUTO DIFFon 09-29-2022 BASO # 0.0 103/ul Normal 0.0-0.[address] [facility] Comment on above: Performed By: #### C BC ####[facility] Lshvucozfv59[address] [place] [address]Dr. Garima Heraclio Basophils/100 WBC (Bld) 0.2 % Normal 0.2-2.[address] [facility] Comment on above: Performed By: #### C BC ####[facility] Wrbqtztqni1614 [place] [id number]. Garima Pulliam EO # 0.1 103/ul Normal 0.0-0.[address] [facility] Comment on above: Performed By: #### C BC ####[facility] Cifumragwb3480 [place] [id number]. Garima Pulliam Eosinophils/100 WBC (Bld) 1.4 % Normal 0.9-7.[address] [facility] Comment on above: Performed By: #### C BC ####[facility] Qopklvspdv757[address] [place], [place] [address]Dr. Garima Pulliam Erythrocyte distribution width (RBC) [Ratio] 13.7 % Normal 11.0-15.0 [facility] Comment on above: Performed By: #### C BC ####[facility] Pxpenwtrlm22[address] [place], [place] [address]Dr. Garima Pulliam Hematocrit (Bld) [Volume fraction] 45.4 % Normal 42.0-54.0 [facility] Comment on above: Performed By: #### C BC ####[facility] Crcrjobbzm44[address] [place], [place] [address]Dr. Garima Pulliam Hemoglobin (Bld) [Mass/Vol] 14.8 g/dL Normal 14.0-18.0 [facility] Comment on above: Performed By: #### C BC ####[facility] Wotbumvohi[address] [place], [place] [address]Dr. Garima Pulliam IG # 0.04 10e3/ul Critically high 0.00-0.03 [facility] Comment on above: Performed By: #### C BC ####[facility] Dgrffvyrnr4514[address] [place], [place] [address]Dr. Garima Pulliam IG % 0.5 % Normal 0.0-0.[address] [facility] Comment on above: Performed By: #### C BC ####[facility] Fbtleswcdb59[address] [place], [place] [address]Dr. Garima Pulliam LYMPH # 1.1 103/ul Critically low 1.2-3.8 The [facility] Comment on above: Performed By: #### C BC ####[facility] Zwlrkxnqoj0242 [place] [id number]. Garima Pulliam Lymphocytes/100 WBC (Bld) 12.7 % Critically low 20.5-60.0 [facility] Comment on above: Performed By: #### C BC ####[facility] Urntbinxep7461 [place] [id number]. Chapisrenu Pulliam MANUAL DIFF REQ NO Normal [facility] Comment on above: Performed By: #### C BC ####[facility] Vxsgkayezi[address] [place], [place] [address]Dr. Garima Heraclio MCH (RBC) [Entitic mass] 30.0 pg Normal 25.9-34.[address] [facility] Comment on above: Performed By: #### C BC ####[facility] Yquwibbpnf01[address] [place], [place] [address]Dr. Garima Heraclio MCHC (RBC) [Mass/Vol] 32.6 g/dL Normal 29.9-35.[address] [facility] Comment on above: Performed By: #### C BC ####[facility] Leskbvxicq[address] [place], [place] [address]Dr. Garima Heraclio MCV (RBC) [Entitic vol] 91.9 fL Normal 80.0-94.[address] [facility] Comment on above: Performed By: #### C BC ####[facility] Ajukhibpmo84[address] [place], [place] [address]Dr. Garima Pulliam MONO # 0.4 103/ul Normal 0.3-0.[address] [facility] Comment on above: Performed By: #### C BC ####[facility] Saayzuipbr[address] [place], [place] [address]Dr. Chapisrenu Pulliam Monocytes/100 WBC (Bld) 4.8 % Normal 1.7-12.[address] [facility] Comment on above: Performed By: #### C BC ####[facility] Olvxifufbl[address] [place], [place] [address]Dr. Garima Pulliam NEUT # 7.1 103/ul Critically high 1.4-6.5 [facility] Comment on above: Performed By: #### C BC ####[facility] Yhknnlkqye25[address] [place], [place] [address]Gf. Garima Pulliam Neutrophils/100 WBC (Bld) 80.4 % Critically high 43.0-75.0 [facility] Comment on above: Performed By: #### C BC ####[facility] Hskzvsznci7354 [place] [id number]. Garima Pulliam Platelet mean volume (Bld) [Entitic vol] 9.1 fL Critically low 9.5-13.5 [facility] Comment on above: Performed By: #### C BC ####[facility] Mscqupjpmw0602 [place] [id number]. Garima Pulliam PLT 200 103/ul Normal 150-[address] [facility] Comment on above: Performed By: #### C BC ####[facility] Wlbmtkfsvw6741 [place] [id number]. Garima Pulliam RBC 4.94 106/ul Normal 4.70-6.[address] [facility] Comment on above: Performed By: #### C BC ####[facility] Cjbiiqjmwr0302 [place] [id number]. Garima Pulliam WBC 8.9 103/ul Normal 4.0-11.[address] [facility] Comment on above: Performed By: #### C BC ####[facility] Xjffcubcek9462 [place] [id number]. Garima Pulliam Covid-19 PCR (CVDTB)on SARS-CoV-2 (COVID-19) RNA MARIE+probe Ql (Unsp spec) Not detected Normal NOT DETECTED [facility] Comment on above: Result Comment: When [...] for this test is supported by the Forwarder Operator of Health and Human Service's declaration [...] used). Performed By: #### C VDTBH ####[facility] Lptjeoeogm80[address] [place] [address]Dr. Garima Pulliam LACTATE/LACTIC ACIDon 2021 Lactate [Moles/Vol] 1.7 mmol/L Normal 0.4-1.9 [facility] Comment on above: Performed By: #### L ACT ####[facility] Xgdjvtwfdk[address] [place], [place] [address]Dr. Garima Pulliam PROF 14(COMP METB)on 022 Albumin [Mass/Vol] 3.8 g/dL Normal 3.4-5.0 [facility] Comment on above: Performed By: #### C MP, BNP, CMADM ####[facility] Yknhgkxxfx[address] [place], [place] [address]Dr. Garima Pulliam Albumin/Globulin [Mass ratio] 1.5 {ratio} Normal [facility] Comment on above: Performed By: #### C MP, BNP, CMADM ####[facility] Vgcotfkqtz[address] [place] [address]Dr. Garima Pulliam ALP [Catalytic activity/Vol] 62 U/L Normal 46-116 [facility] Comment on above: Performed By: #### C MP, BNP, CMADM ####[facility] Kguvkvxarw9063 [place] [address]Dr. Garima Pulliam ALT [Catalytic activity/Vol] 37 U/L Normal 16-63 [facility] Comment on above: Performed By: #### C MP, BNP, CMADM ####[facility] Prkyxiwicy0787 [place] [address]Dr. Garima Pulliam Anion gap [Moles/Vol] 8.0 mmol/L Normal [facility] Comment on above: Performed By: #### C MP, BNP, CMADM ####[facility] Vesrxmjyfk5212 [place] [address]Dr. Garima Pulliam AST [Catalytic activity/Vol] 20 U/L Normal 15-37 [facility] Comment on above: Performed By: #### C MP, BNP, CMADM ####[facility] Pzupnrnsaq1321 [place] [address]Dr. Garima Pulliam Bilirubin [Mass/Vol] 0.6 mg/dL Normal 0.2-1.[address] [facility] Comment on above: Performed By: #### C MP, BNP, CMADM ####[facility] Sddfnagoqn1451 [place] [address]Dr. Garima Pulliam Calcium [Mass/Vol] 9.1 mg/dL Normal 8.5-10.1 [facility] Comment on above: Performed By: #### C MP, BNP, CMADM ####[facility] Cckskwywjj[address] [place], [place] [address]Dr. Garima Pulliam Chloride [Moles/Vol] 103 mmol/L Normal 98-[address] [facility] Comment on above: Performed By: #### C MP, BNP, CMADM ####[facility] Kkevfsweiz367[address] [place], [place] [address]Dr. Garima Pulliam CO2 [Moles/Vol] 31.8 mmol/L Normal 21.0-32.0 The [facility] Comment on above: Performed By: #### C MP, BNP, CMADM ####[facility] Mdksphgrbu[address] [place], [place] [address]Dr. Garima Pulliam Creatinine [Mass/Vol] 0.63 mg/dL Critically low 0.70-1.[address] [facility] Comment on above: Performed By: #### C MP, BNP, CMADM ####[facility] Bkxgdvrplg[address] [place], [place] [address]Dr. Garima Pulliam EGFR-AF ITALIAN >60 Normal >=60 The [facility] Comment on above: Performed By: #### C MP, BNP, CMADM ####[facility] Dodoanptym[address] [place], [place] [address]Dr. Garima Pulliam EGFR-NON AF ITALIAN >60 Normal >=[address] [facility] Comment on above: Performed By: #### C MP, BNP, CMADM ####[facility] Awstqypqht8748 [place] [address]Dr. Garima Pulliam Globulin (S) [Mass/Vol] 2.6 g/dL Normal [facility] Comment on above: Performed By: #### C MP, BNP, CMADM ####[facility] Hkbpvdywrh6646 [place] [address]Dr. Gairma Pulliam Glucose [Mass/Vol] 103 mg/dL Normal 74-106 [facility] Comment on above: Performed By: #### C MP, BNP, CMADM ####[facility] Hatqpppvgn5487 [place] [address]Dr. Garima Pulliam Potassium [Moles/Vol] 3.8 mmol/L Normal 3.5-5.[address] [facility] Comment on above: Performed By: #### C MP, BNP, CMADM ####[facility] Ouqttaznwc7028 [place] [address]Dr. Garima Pulliam Protein [Mass/Vol] 6.4 g/dL Normal 6.4-8.2 [facility] Comment on above: Performed By: #### C MP, BNP, CMADM ####[facility] Fnlfvtautk8[address] [place] [address]Dr. Garima Pulliam Sodium [Moles/Vol] 139 mmol/L Normal 136-145 [facility] Comment on above: Performed By: #### C MP, BNP, CMADM ####[facility] Iinygidivi9979 [place] [address]Dr. Garima Pulliam Urea nitrogen [Mass/Vol] 7.0 mg/dL Normal 7.0-18.[address] [facility] Comment on above: Performed By: #### C MP, BNP, CMADM ####[facility] Oenazghzzt4359 [place] [address]Dr. Garima Pulliam Urea nitrogen/Creatinine [Mass ratio] 11.1 mg/mg Normal [facility] Comment on above: Performed By: #### C MP, BNP, CMADM ####[facility] Wdnsyocbun97[address] [place] [address]Dr. Garima Pulliam PROTIMEon 09-29-2022 INR Coag (PPP) [Relative time] 1.14 {INR} Normal [facility] Comment on above: Performed By: #### P T, PTT ####[facility] Yokrhtgeew[address] [place], [place] [address]Dr. Garima Pulliam INR GUIDELINES SEE BELOW Normal [facility] Comment on above: Result Comment: WESLEY RED INR: 2.0 - 3.0 CONDITIONS NOT LISTED BELOW 2.5 - 3.5 FOR PROSTHETIC HEART VALVE REPLACEMENT 2.5 - 3.5 RECURRENT THROMBOSIS Performed By: #### P T, PTT ####[facility] Vkawdmmvrj45[address] [place], [place] [address]Dr. Garima Pulliam PT Coag (PPP) [Time] 12.2 s Critically high 9.0-11.[address] [facility] Comment on above: Performed By: #### P T, PTT ####[facility] Vyrtsbdwqn7[address] [place], [place] [address]Dr. Garima Pulliam PTTon 09-29-2022 aPTT Coag (Bld) [Time] 29.3 s Normal 22.3-36.[address] [facility] Comment on above: Performed By: #### P T, PTT ####[facility] Kspqkorkgs[address] [place], [place] [address]Dr. Garima Pulliam XR CHEST 1 Von 09-29-2022 XR CHEST [address] [facility] CBC AUTO DIFFon 09-26-2022 BASO # 0.0 103/ul Normal 0.0-0.[address] [facility] Comment on above: Performed By: #### C BC ####[facility] Esiojcobfa307[address] [place], [place] [address]Dr. Garima Pulliam Basophils/100 WBC (Bld) 0.2 % Normal 0.2-2.[address] [facility] Comment on above: Performed By: #### C BC ####[facility] Pomvfmmfqi6387[address] [place], [place] [address]Dr. Garima Pulliam EO # 0.1 103/ul Normal 0.0-0.7 [facility] Comment on above: Performed By: #### C BC ####[facility] Vkdbgujwpt11[address] [place], [place] [address]Dr. Garima Pulliam Eosinophils/100 WBC (Bld) 1.0 % Normal 0.9-7.0 [facility] Comment on above: Performed By: #### C BC ####[facility] Zfnkxpmpug994[address] [place], [place] [address]Dr. Garima Pulliam Erythrocyte distribution width (RBC) [Ratio] 13.4 % Normal 11.0-15.0 [facility] Comment on above: Performed By: #### C BC ####[facility] Xybpupbcir6718[address] [place], [place] [address]Dr. Garima Pulliam Hematocrit (Bld) [Volume fraction] 46.3 % Normal 42.0-54.0 [facility] Comment on above: Performed By: #### C BC ####[facility] Mltgmebjkj5727[address] [place], [place] [address]Dr. Garima Pulliam Hemoglobin (Bld) [Mass/Vol] 15.3 g/dL Normal 14.0-18.[address] [facility] Comment on above: Performed By: #### C BC ####[facility] Bulcqophed7147[address] [place], [place] [address]Dr. Garima Pulliam IG # 0.05 10e3/ul Critically high 0.00-0.03 [facility] Comment on above: Performed By: #### C BC ####[facility] Zsijzcoeiv1910[address] [place], [place] [address]Dr. Garima Pulliam IG % 0.4 % Normal 0.0-0.[address] [facility] Comment on above: Performed By: #### C BC ####[facility] Gzsyynafdg398[address] [place], [place] [address]Dr. Garima Pulliam LYMPH # 1.7 103/ul Normal 1.2-3.[address] [facility] Comment on above: Performed By: #### C BC ####[facility] Jdxfscqbfr40[address] [place], [place] [address]Dr. Garima Pulliam Lymphocytes/100 WBC (Bld) 12.7 % Critically low 20.5-60.[address] [facility] Comment on above: Performed By: #### C BC ####[facility] Vbiwwtamzu8[address] [place] [address]DrAdalberto Pulliam MANUAL DIFF REQ NO Normal [facility] Comment on above: Performed By: #### C BC ####[facility] Naevfpigms2364 [place] [address]Dr. Garima Pulliam MCH (RBC) [Entitic mass] 30.1 pg Normal 25.9-34.[address] [facility] Comment on above: Performed By: #### C BC ####[facility] Rqrfrzzywd[address] [place], [place] [address]Dr. Garima Pulliam MCHC (RBC) [Mass/Vol] 33.0 g/dL Normal 29.9-35.[address] [facility] Comment on above: Performed By: #### C BC ####[facility] Gfavtxkysy25[address] [place], [place] [address]DrAdalberto Pulliam MCV (RBC) [Entitic vol] 91.1 fL Normal 80.0-94.[address] [facility] Comment on above: Performed By: #### C BC ####[facility] Fibyuzrsql[address] [place], [place] [address]DrAdalberto Pulliam MONO # 0.9 103/ul Critically high 0.3-0.8 [facility] Comment on above: Performed By: #### C BC ####[facility] Ogaajtpbqq[address] [place], [place] [address]DrAdalberto Pulliam Monocytes/100 WBC (Bld) 7.0 % Normal 1.7-12.[address] [facility] Comment on above: Performed By: #### C BC ####[facility] Grdbzfipoi527[address] [place], [place] [address]DrAdalberto Pulliam NEUT # 10.4 103/ul Critically high 1.4-6.5 [facility] Comment on above: Performed By: #### C BC ####[facility] Ebbtusqdiw2112[address] [place], [place] [address]DrAdalberto Pulliam Neutrophils/100 WBC (Bld) 78.7 % Critically high 43.0-75.0 [facility] Comment on above: Performed By: #### C BC ####[facility] Jdofechguu[address]42 [place] [address]Dr. Garima Pulliam Platelet mean volume (Bld) [Entitic vol] 8.9 fL Critically low 9.5-13.[address] [facility] Comment on above: Performed By: #### C BC ####[facility] Pjscsiygpa4915 [place] [address]Dr. Garima Pulliam PLT 195 103/ul Normal 150-[address] [facility] Comment on above: Performed By: #### C BC ####[facility] Tuxtqawfvs64[address] [place], [place] [address]Dr. Garmia Pulliam RBC 5.08 106/ul Normal 4.70-6.[address] [facility] Comment on above: Performed By: #### C BC ####[facility] Quugjegbpb1839[address] [place], [place] [address]Dr. Garima Pulliam WBC 13.2 103/ul Critically high 4.0-11.0 [facility] Comment on above: Performed By: #### C BC ####[facility] Kfstctdjbv8[address] [place], [place] [address]Dr. Garima Pulliam PROF 14(COMP METB)on 022 Albumin [Mass/Vol] 3.5 g/dL Normal 3.4-5.0 [facility] Comment on above: Performed By: #### C DAVID HSTROPN ####[facility] Recjkevmlv17[address] [place] [address]Dr. Garima Pulliam Albumin/Globulin [Mass ratio] 1.2 {ratio} Normal [facility] Comment on above: Performed By: #### C RAFAT HERNANDEZTROPN ####[facility] Nsqopyecop20[address] [place] [address]Dr. Garima Pulliam ALP [Catalytic activity/Vol] 71 U/L Normal 46-[address] [facility] Comment on above: Performed By: #### C DAVID HSTROPN ####[facility] Qljpaqizdt0178 [place] [address]Dr. Garima Pulliam ALT [Catalytic activity/Vol] 37 U/L Normal 16-[address] [facility] Comment on above: Performed By: #### C DAVID, HSTROPN ####[facility] Utgixlxcit0586 [place] [address]Dr. Garima Pulliam Anion gap [Moles/Vol] 4.8 mmol/L Normal [facility] Comment on above: Performed By: #### C DAVID, HSTROPN ####[facility] Axtdrfkiya[address] [place], [place] [address]Dr. Garima Pulliam AST [Catalytic activity/Vol] 21 U/L Normal 15-[address] [facility] Comment on above: Performed By: #### C DAVID, HSTROPN ####[facility] Txnztikruz30[address] [place], [place] [address]Dr. Garima Pulliam Bilirubin [Mass/Vol] 0.3 mg/dL Normal 0.2-1.[address] [facility] Comment on above: Performed By: #### C DAVID, HSTROPN ####[facility] Axheeoftyy[address] [place] [address]Dr. Garima Pulliam Calcium [Mass/Vol] 8.9 mg/dL Normal 8.5-10.1 [facility] Comment on above: Performed By: #### C DAVID, HSTROPN ####[facility] Wtbilebouv[address] [place] [address]Dr. Garima Pulliam Chloride [Moles/Vol] 106 mmol/L Normal 98-[address] [facility] Comment on above: Performed By: #### C DAVID, HSTROPN ####[facility] Nojjwvczsh[address] [place] [address]Dr. Garima Pulliam CO2 [Moles/Vol] 29.8 mmol/L Normal 21.0-32.0 The [facility] Comment on above: Performed By: #### C DAVID, HSTROPN ####[facility] Afnyrvcifg9[address] [place] [address]Dr. Garima Pulliam Creatinine [Mass/Vol] 0.68 mg/dL Critically low 0.70-1.30 [facility] Comment on above: Performed By: #### C MP, HSTROPN ####[facility] Zkiqiaqwlr475[address] [place] [address]Dr. Garima Pulliam EGFR-AF ITALIAN >60 Normal >=60 [facility] Comment on above: Performed By: #### C MP, HSTROPN ####[facility] Dfpffexfai7410 [place] [address]Dr. Chapislan Pulliam EGFR-NON AF ITALIAN >60 Normal >=60 [facility] Comment on above: Performed By: #### C MP, HSTROPN ####[facility] Qrhsqdgpho4272 [place] [address]Dr. Garima Pulliam Globulin (S) [Mass/Vol] 2.8 g/dL Normal [facility] Comment on above: Performed By: #### C MP, HSTROPN ####[facility] Ypmkxhzosk4063 [place] [address]Dr. Garima Pulliam Glucose [Mass/Vol] 133 mg/dL Critically high 74-106 [facility] Comment on above: Performed By: #### C MP, HSTROPN ####[facility] Vlugelbmbr7[address] [place] [address]Dr. Chapisrenu Pulliam Potassium [Moles/Vol] 3.6 mmol/L Normal 3.5-5.1 [facility] Comment on above: Performed By: #### C MP, HSTROPN ####[facility] Xowimyvisk28[address] [place] [address]Dr. Chapisrenu Pulliam Protein [Mass/Vol] 6.3 g/dL Critically low 6.4-8.2 [facility] Comment on above: Performed By: #### C MP, HSTROPN ####[facility] Xfqhyaeddz[address] [place], [place] [address]Dr. Chapisrenu Pulliam Sodium [Moles/Vol] 137 mmol/L Normal 136-145 [facility] Comment on above: Performed By: #### C MP, HSTROPN ####[facility] Mgfnzamzyc[address] [place], [place] [address]Dr. Garima Pulliam Urea nitrogen [Mass/Vol] 15.0 mg/dL Normal 7.0-18.[address] [facility] Comment on above: Performed By: #### C DAVID HSTROPN ####[facility] Oidsnlrauv5369 [place] [address]Dr. Chapisrenu Pulliam Urea nitrogen/Creatinine [Mass ratio] 22.1 mg/mg Normal [facility] Comment on above: Performed By: #### C DAVID HSTROPN ####[facility] Ozoeryfnoi73[address] [place] [address]Dr. Garima Heraclio TROPONIN, HIGH SENSITIVITYon 09-26-2022 HSTROP 12.8 pg/mL Normal 4.0-76.[address] [facility] Comment on above: Result Comment: CUT- OFF POINTS HAVE BEEN ESTABLISHED BASED ON THE FOURTH UNIVERSAL DEFINITIONS OF MYOCARDIALINFARCTION. THE UPPER REFERENCE LIMIT (URL) OF TROPONIN, DEFINED THE 99TH PERCENTILE OFcTnI DISTRIBUTION IN A REFERENCE POPULATION, HAS BEEN CONFIRMED THE DECISION THRESHOLDFOR [place] DIAGNOSIS. Performed By: #### C DAVID HSTROPN ####[facility] Sezjtaoqdq44[address] [place] [address]Dr. Chapisrenu Pulliam XR CHEST 1 Von 09-26-2022 XR CHEST [address] [facility] XR CHEST 1 Von 09-16-2022 XR CHEST [address] [facility] CBC AUTO DIFFon 09-15-2022 BASO # 0.0 103/ul Normal 0.0-0.[address] [facility] Comment on above: Performed By: #### C BC ####[facility] Mnnjfqasfh3761 [place] [address]Dr. Garima Heraclio Basophils/100 WBC (Bld) 0.1 % Critically low 0.2-2.[address] [facility] Comment on above: Performed By: #### C BC ####[facility] Olxbaquqmj3132 [place] [address]Dr. Garima Pulliam EO # 0.0 103/ul Normal 0.0-0.[address] [facility] Comment on above: Performed By: #### C BC ####[facility] Fsvokuibpg6464 [place] [address]Dr. Garima Pulliam Eosinophils/100 WBC (Bld) 0.1 % Critically low 0.9-7.[address] [facility] Comment on above: Performed By: #### C BC ####[facility] Opizmdpxds1541 [place] [address]Dr. Garima Pulliam Erythrocyte distribution width (RBC) [Ratio] 14.1 % Normal 11.0-15.[address] [facility] Comment on above: Performed By: #### C BC ####[facility] [address]zatgkfpeu[address] [place], [place] [address]Dr. Garima Pulliam Hematocrit (Bld) [Volume fraction] 46.1 % Normal 42.0-54.[address] [facility] Comment on above: Performed By: #### C BC ####[facility] Oqfjxijxmm68[address] [place], [place] [address]Dr. Garima Pulliam Hemoglobin (Bld) [Mass/Vol] 15.0 g/dL Normal 14.0-18.[address] [facility] Comment on above: Performed By: #### C BC ####[facility] Uyapcidmdi[address] [place], [place] [address]Dr. Garima Pulliam IG # 0.03 10e3/ul Normal 0.00-0.[address] [facility] Comment on above: Performed By: #### C BC ####[facility] Mxvpbwjpaz86[address] [place], [place] [address]Dr. Garima Pulliam IG % 0.3 % Normal 0.0-0.[address] [facility] Comment on above: Performed By: #### C BC ####[facility] Ijjlpcxhet34[address] [place], [place] [address]Dr. Garima Pulliam LYMPH # 0.6 103/ul Critically low 1.2-3.8 The [facility] Comment on above: Performed By: #### C BC ####[facility] Wburyjglvq687[address] [place], [place] [address]Dr. Garima Pulliam Lymphocytes/100 WBC (Bld) 5.8 % Critically low 20.5-60.[address] [facility] Comment on above: Performed By: #### C BC ####[facility] Dtlqaqtape7598 [place] [id number]. Garima Pulliam MANUAL DIFF REQ NO Normal [facility] Comment on above: Performed By: #### C BC ####[facility] Trimojttwd4616 [place] [id number]. Garima Pulliam MCH (RBC) [Entitic mass] 30.2 pg Normal 25.9-34.[address] [facility] Comment on above: Performed By: #### C BC ####[facility] Anbimkuovo2391 [place] [address]Dr. Garima Pulliam MCHC (RBC) [Mass/Vol] 32.5 g/dL Normal 29.9-35.[address] [facility] Comment on above: Performed By: #### C BC ####[facility] Szqbriaeob9261 [place] [address]Dr. Garima Pulliam MCV (RBC) [Entitic vol] 92.8 fL Normal 80.0-94.[address] [facility] Comment on above: Performed By: #### C BC ####[facility] Illgdecrgm4931 [place] [address]Dr. Garima Heraclio MONO # 0.3 103/ul Normal 0.3-0.[address] [facility] Comment on above: Performed By: #### C BC ####[facility] Ubduiosvob1440 [place] [id number]. Garima Heraclio Monocytes/100 WBC (Bld) 3.2 % Normal 1.7-12.[address] [facility] Comment on above: Performed By: #### C BC ####[facility] Zmhbpgifga7988 [place] [id number]. Garima Pulliam NEUT # 9.8 103/ul Critically high 1.4-6.5 [facility] Comment on above: Performed By: #### C BC ####[facility] Vnutxgvaur6007 [place] [id number]. Garima Pulliam Neutrophils/100 WBC (Bld) 90.5 % Critically high 43.0-75.[address] [facility] Comment on above: Performed By: #### C BC ####[facility] Yudissetft1052 [place] [id number]. Garima Pulliam Platelet mean volume (Bld) [Entitic vol] 9.4 fL Critically low 9.5-13.[address] [facility] Comment on above: Performed By: #### C BC ####[facility] Yfszmkxmci3935 [place] [id number]. Garima Pulliam PLT 208 103/ul Normal 150-[address] [facility] Comment on above: Performed By: #### C BC ####[facility] Hnurnmrzkn9548 [place] [address]Dr. Garima Pulliam RBC 4.97 106/ul Normal 4.70-6.[address] [facility] Comment on above: Performed By: #### C BC ####[facility] Ucljgsdscu8228 [place] [address]Dr. Garima Pulliam WBC 10.8 103/ul Normal 4.0-11.[address] [facility] Comment on above: Performed By: #### C BC ####[facility] Irzwotffht7855 [place] [address]Dr. Garima Pulliam PROF 14(COMP METB)on 022 Albumin [Mass/Vol] 4.0 g/dL Normal 3.4-5.0 [facility] Comment on above: Performed By: #### C MP ####[facility] Jeopcwlmbc4208 [place] [address]Dr. Garima Pulliam Albumin/Globulin [Mass ratio] 1.5 {ratio} Normal [facility] Comment on above: Performed By: #### C MP ####[facility] Dcccpyqynw8062 [place] [address]Dr. Garima Pulliam ALP [Catalytic activity/Vol] 73 U/L Normal 46-[address] [facility] Comment on above: Performed By: #### C MP ####[facility] Ajpngkxulb1932 [place] [address]Dr. Garima Pulliam ALT [Catalytic activity/Vol] 42 U/L Normal 16-[address] [facility] Comment on above: Performed By: #### C MP ####[facility] Qaqudgydiz1941 [place] [address]Dr. Garima Pulliam Anion gap [Moles/Vol] 9.1 mmol/L Normal [facility] Comment on above: Performed By: #### C MP ####[facility] Egrhofjzwe264[address] [place], [place] [address]Dr. Garima Pulliam AST [Catalytic activity/Vol] 28 U/L Normal 15-[address] [facility] Comment on above: Performed By: #### C MP ####[facility] Pphkhapzle[address] [place], [place] [address]Dr. Garima Pulliam Bilirubin [Mass/Vol] 0.6 mg/dL Normal 0.2-1.[address] [facility] Comment on above: Performed By: #### C MP ####[facility] Kwymxjwssd[address] [place], [place] [address]Dr. Garima Pulliam Calcium [Mass/Vol] 8.6 mg/dL Normal 8.5-10.1 The [facility] Comment on above: Performed By: #### C MP ####[facility] Qzxingmcsh175[address] [place], [place] [address]Dr. Garima Pulliam Chloride [Moles/Vol] 105 mmol/L Normal 98-[address] [facility] Comment on above: Performed By: #### C MP ####[facility] Llcjolqjdu76[address] [place], [place] [address]Dr. Garima Pulliam CO2 [Moles/Vol] 28.5 mmol/L Normal 21.0-32.0 The [facility] Comment on above: Performed By: #### C MP ####[facility] Qdjmdroaar2[address] [place], [place] [address]Dr. Garima Heraclio Creatinine [Mass/Vol] 0.78 mg/dL Normal 0.70-1.[address] [facility] Comment on above: Performed By: #### C MP ####[facility] Jepwuhumpw[address] [place], [place] [address]Dr. Chapisrenu Heraclio EGFR-AF ITALIAN >60 Normal >=60 The [facility] Comment on above: Performed By: #### C MP ####[facility] Nsxpofefag0[address] [place], [place] [address]Dr. Garima Pulliam EGFR-NON AF ITALIAN >60 Normal >=60 [facility] Comment on above: Performed By: #### C MP ####[facility] Qoequqbnyl2345 [place] [address]Dr. Garima Pulliam Globulin (S) [Mass/Vol] 2.7 g/dL Normal [facility] Comment on above: Performed By: #### C MP ####[facility] Umsesdutyw1457 [place] [address]Dr. Garima Pulliam Glucose [Mass/Vol] 220 mg/dL Critically high 74-106 [facility] Comment on above: Performed By: #### C MP ####[facility] Azefnovnep3401 [place] [address]Dr. Garima Pulliam Potassium [Moles/Vol] 3.6 mmol/L Normal 3.5-5.1 [facility] Comment on above: Performed By: #### C MP ####[facility] Efoyhyoysb[address] [place], [place] [address]Dr. Garima Pulliam Protein [Mass/Vol] 6.7 g/dL Normal 6.4-8.2 [facility] Comment on above: Performed By: #### C MP ####[facility] Gnjbsxornp5[address] [place], [place] [address]Dr. Garima Pulliam Sodium [Moles/Vol] 139 mmol/L Normal 136-145 [facility] Comment on above: Performed By: #### C MP ####[facility] Hbtbpmdukr0667[address] [place], [place] [address]Dr. Garima Pulliam Urea nitrogen [Mass/Vol] 11.0 mg/dL Normal 7.0-18.0 [facility] Comment on above: Performed By: #### C MP ####[facility] Cakajtofoy9[address] [place], [place] [address]Dr. Garima Pulliam Urea nitrogen/Creatinine [Mass ratio] 14.1 mg/mg Normal [facility] Comment on above: Performed By: #### C MP ####[facility] Sybcoswiil39[address] [place], [place] [address]Dr. Garima Pulliam CARDIAC NASH 3-6on 2 CK [Catalytic activity/Vol] 240 U/L Normal 39-308 [facility] Comment on above: Performed By: #### C MREP ####[facility] Xhwyndczld8721 [place] [address]Dr. Garima Pulliam CK.MB [Mass/Vol] 10.38 ng/mL Critically high <=3.60 [facility] Comment on above: Performed By: #### C MREP ####[facility] Bqmubidpmi0474 [place] [address]Dr. Garima Pulliam HSTROP 18.5 pg/mL Normal 4.0-76.1 [facility] Comment on above: Result Comment: CUT- OFF POINTS HAVE BEEN ESTABLISHED BASED ON THE FOURTH UNIVERSAL DEFINITIONS OF MYOCARDIALINFARCTION. THE UPPER REFERENCE LIMIT (URL) OF TROPONIN, DEFINED THE 99TH PERCENTILE OFcTnI DISTRIBUTION IN A REFERENCE POPULATION, HAS BEEN CONFIRMED THE DECISION THRESHOLDFOR [place] DIAGNOSIS. Performed By: #### C MREP ####[facility] Eowpfdhktf8736 [place] [address]Dr. Garima Pulliam CK [Catalytic activity/Vol] 257 U/L Normal 39-308 [facility] Comment on above: Performed By: #### C MREP ####[facility] Ubaefouxoi96[address] [place], [place] [address]Dr. Garima Pulliam CK.MB [Mass/Vol] 9.89 ng/mL Critically high <=3.60 [facility] Comment on above: Performed By: #### C MREP ####[facility] Pixxlcrzhc5[address] [place], [place] [address]Dr. Garima Pulliam HSTROP 16.9 pg/mL Normal 4.0-76.1 [facility] Comment on above: Result Comment: CUT- OFF POINTS HAVE BEEN ESTABLISHED BASED ON THE FOURTH UNIVERSAL DEFINITIONS OF MYOCARDIALINFARCTION. THE UPPER REFERENCE LIMIT (URL) OF TROPONIN, DEFINED THE 99TH PERCENTILE OFcTnI DISTRIBUTION IN A REFERENCE POPULATION, HAS BEEN CONFIRMED THE DECISION THRESHOLDFOR [place] DIAGNOSIS. Performed By: #### C MREP ####[facility] Jilpvmnohw4187 [place] [address]Dr. Garima Heraclio CBC AUTO DIFFon 10-22-2022 BASO # 0.0 103/ul Normal 0.0-0.[address] [facility] Comment on above: Performed By: #### C BC ####[facility] Sqjcwjrovn9661 [place] [id number]. Garima Pulliam Basophils/100 WBC (Bld) 0.1 % Critically low 0.2-2.[address] [facility] Comment on above: Performed By: #### C BC ####[facility] Srtvivoddm4059 [place] [address]Dr. Garima Pulliam EO # 0.0 103/ul Normal 0.0-0.[address] [facility] Comment on above: Performed By: #### C BC ####[facility] Vvhgldpvln8[address] [place], [place] [address]Dr. Chapisrenu Heraclio Eosinophils/100 WBC (Bld) 0.0 % Critically low 0.9-7.[address] [facility] Comment on above: Performed By: #### C BC ####[facility] Fflpbrkokf84[address] [place], [place] [address]Dr. Garima Pulliam Erythrocyte distribution width (RBC) [Ratio] 13.6 % Normal 11.0-15.[address] [facility] Comment on above: Performed By: #### C BC ####[facility] Swdhmkkqod074[address] [place], [place] [address]Dr. Garima Pulliam Hematocrit (Bld) [Volume fraction] 48.2 % Normal 42.0-54.[address] [facility] Comment on above: Performed By: #### C BC ####[facility] Ggctopxwby69[address] [place], [place] [address]Dr. Garima Pulliam Hemoglobin (Bld) [Mass/Vol] 16.0 g/dL Normal 14.0-18.[address] [facility] Comment on above: Performed By: #### C BC ####[facility] Rtgfkxkhqw1860[address] [place], [place] [address]Dr. Chapisrenu Heraclio IG # 0.02 10e3/ul Normal 0.00-0.[address] [facility] Comment on above: Performed By: #### C BC ####[facility] Hgmlzjsrpd4694 [place] [id number]. Garima Pulliam IG % 0.3 % Normal 0.0-0.[address] [facility] Comment on above: Performed By: #### C BC ####[facility] Alokvjesxu5516 [place] [address]Dr. Garima Heraclio LYMPH # 0.5 103/ul Critically low 1.2-3.8 [facility] Comment on above: Performed By: #### C BC ####[facility] Xnugencjrp9710 [place] [address]Dr. Garima Heraclio Lymphocytes/100 WBC (Bld) 7.7 % Critically low 20.5-60.[address] [facility] Comment on above: Performed By: #### C BC ####[facility] Jlepkyffco[address] [place], [place] [address]Dr. Chapisrenu Pulliam MANUAL DIFF REQ NO Normal [facility] Comment on above: Performed By: #### C BC ####[facility] Tsqmlvsbva238[address] [place], [place] [address]Dr. Garima Heraclio MCH (RBC) [Entitic mass] 30.6 pg Normal 25.9-34.[address] [facility] Comment on above: Performed By: #### C BC ####[facility] Mdjocgasgc258[address] [place], [place] [address]Dr. Garima Pulliam MCHC (RBC) [Mass/Vol] 33.2 g/dL Normal 29.9-35.[address] [facility] Comment on above: Performed By: #### C BC ####[facility] Gviercnwsw13[address] [place], [place] [address]Dr. Garima Heraclio MCV (RBC) [Entitic vol] 92.2 fL Normal 80.0-94.[address] [facility] Comment on above: Performed By: #### C BC ####[facility] Bfokckfxkv85[address] [place], [place] [address]Dr. Garima Pulliam MONO # 0.0 103/ul Critically low 0.3-0.8 [facility] Comment on above: Performed By: #### C BC ####[facility] Vtdatxewvs7714 [place] [id number]. Garima Pulliam Monocytes/100 WBC (Bld) 0.4 % Critically low 1.7-12.[address] [facility] Comment on above: Performed By: #### C BC ####[facility] Alelfsafph4098 [place] [id number]. Garima Pulliam NEUT # 6.2 103/ul Normal 1.4-6.[address] [facility] Comment on above: Performed By: #### C BC ####[facility] Nfnzjvdtdj6271 [place] [address]Dr. Garima Pulliam Neutrophils/100 WBC (Bld) 91.5 % Critically high 43.0-75.[address] [facility] Comment on above: Performed By: #### C BC ####[facility] Kfnlpgekvl3859 [place] [address]Dr. Garima Pulliam Platelet mean volume (Bld) [Entitic vol] 8.7 fL Critically low 9.5-13.[address] [facility] Comment on above: Performed By: #### C BC ####[facility] Mqxqzuugnx3701 [place] [address]Dr. Garima Pulliam PLT 179 103/ul Normal 150-[address] [facility] Comment on above: Performed By: #### C BC ####[facility] Qapyqifmdm6202 [place] [id number]. Garima Pulliam RBC 5.23 106/ul Normal 4.70-6.[address] [facility] Comment on above: Performed By: #### C BC ####[facility] Amdhnzlidj4485 [place] [address]Dr. Garima Pulliam WBC 6.7 103/ul Normal 4.0-11.[address] [facility] Comment on above: Performed By: #### C BC ####[facility] Gpqfcspxau0206 [place] [address]Dr. Garima Pulliam PROF CHEM 8 (BAS METB)on Anion gap [Moles/Vol] 12.1 mmol/L Normal Th [facility] Comment on above: Performed By: #### B MP ####[facility] Ftvhdzmvtg2266 [place] [id number]. Garima Pulliam Calcium [Mass/Vol] 8.7 mg/dL Normal 8.5-10.1 The [facility] Comment on above: Performed By: #### B MP ####[facility] Pzhnijtlkg7316 [place] [id number]. Garima Pulliam Chloride [Moles/Vol] 105 mmol/L Normal 98-107 [facility] Comment on above: Performed By: #### B MP ####[facility] Qkzukddljj0000 [place] [id number]. Garima Pulliam CO2 [Moles/Vol] 25.5 mmol/L Normal 21.0-32.0 The [facility] Comment on above: Performed By: #### B MP ####[facility] Gzjcilhntx9425 [place] [address]Dr. Garima Pulliam Creatinine [Mass/Vol] 0.63 mg/dL Critically low 0.70-1.30 [facility] Comment on above: Performed By: #### B MP ####[facility] Pkifgilwfh7821 [place] [address]Dr. Garima Pulliam EGFR-AF ITALIAN >60 Normal >=60 [facility] Comment on above: Performed By: #### B MP ####[facility] Ersbncjqhj5417 [place] [address]Dr. Garima Pulliam EGFR-NON AF ITALIAN >60 Normal >=60 [facility] Comment on above: Performed By: #### B MP ####[facility] Hpfyqzlrho2472 [place] [address]Dr. Garima Pulliam Glucose [Mass/Vol] 162 mg/dL Critically high 74-106 [facility] Comment on above: Performed By: #### B MP ####[facility] Zadvjubazd4[address] [place], [place] [address]Dr. Garima Pulliam Potassium [Moles/Vol] 3.6 mmol/L Normal 3.5-5.[address] [facility] Comment on above: Performed By: #### B MP ####[facility] Tcyaeobzth5[address] [place], [place] [address]Dr. Garima Pulliam Sodium [Moles/Vol] 139 mmol/L Normal 136-145 [facility] Comment on above: Performed By: #### B DAVID ####[facility] Dlrlzdeddf7048 [place] [address]Dr. Garima Pulliam Urea nitrogen [Mass/Vol] 9.0 mg/dL Normal 7.0-18.0 [facility] Comment on above: Performed By: #### B DAVID ####[facility] Qzpzauwznr3165 [place] [address]Dr. Garima Pulliam Urea nitrogen/Creatinine [Mass ratio] 14.3 mg/mg Normal [facility] Comment on above: Performed By: #### B DAVID ####[facility] Hsvwksjycs3152 [place] [address]Dr. Chapisrenu Pulliam CARDIAC NASH ADMITon 09-12- 022 CK [Catalytic activity/Vol] 304 U/L Normal 39-308 [facility] Comment on above: Performed By: #### B NANCY HERNANDEZ ####[facility] Dfuisbxgyd9604 [place] [address]Dr. Garima Pulliam CK.MB [Mass/Vol] 11.81 ng/mL Critically high <=3.60 Th [facility] Comment on above: Performed By: #### B NANCY HERNANDEZ ####[facility] Jtihlzxxer3579 [place] [address]Dr. Garima Heraclio HSTROP 13.3 pg/mL Normal 4.0-76.1 [facility] Comment on above: Result Comment: CUT- OFF POINTS HAVE BEEN ESTABLISHED BASED ON THE FOURTH UNIVERSAL DEFINITIONS OF MYOCARDIALINFARCTION. THE UPPER REFERENCE LIMIT (URL) OF TROPONIN, DEFINED THE 99TH PERCENTILE OFcTnI DISTRIBUTION IN A REFERENCE POPULATION, HAS BEEN CONFIRMED THE DECISION THRESHOLDFOR [place] DIAGNOSIS. Performed By: #### B NANCY HERNANDEZ ####[facility] Xmlwvrhxpq4126 [place] [address]Dr. Garima Pulliam DORIS 133 ng/mL Critically high 16-96 [facility] Comment on above: Performed By: #### B NANCY HERNANDEZ ####[facility] Ppeagakmql6030 [place] [address]Dr. Garima Pulliam CBC AUTO DIFFon 09-12-2022 BASO # 0.0 103/ul Normal 0.0-0.[address] [facility] Comment on above: Performed By: #### C BC ####[facility] Acdoxwvhmk[address] [place], [place] [address]Dr. Garima Heraclio Basophils/100 WBC (Bld) 0.2 % Normal 0.2-2.[address] [facility] Comment on above: Performed By: #### C BC ####[facility] Irncfapiph[address] [place], [place] [address]Dr. Garima Heraclio EO # 0.2 103/ul Normal 0.0-0.[address] [facility] Comment on above: Performed By: #### C BC ####[facility] Prommxkvnz[address] [place], [place] [address]Dr. Chapisrenu Pulliam Eosinophils/100 WBC (Bld) 1.3 % Normal 0.9-7.[address] [facility] Comment on above: Performed By: #### C BC ####[facility] Lwryimyolb[address] [place], [place] [address]Dr. Garima Pulliam Erythrocyte distribution width (RBC) [Ratio] 13.7 % Normal 11.0-15.0 [facility] Comment on above: Performed By: #### C BC ####[facility] Rvyglieqco[address] [place], [place] [address]Dr. Garima Pulliam Hematocrit (Bld) [Volume fraction] 46.4 % Normal 42.0-54.[address] [facility] [facility] Comment on above: Performed By: #### C BC ####[facility] [address] [place], [place] [address]Dr. Garima Pulliam Hemoglobin (Bld) [Mass/Vol] 15.7 g/dL Normal 14.0-18.[address] [facility] Comment on above: Performed By: #### C BC ####[facility] [address] [place], [place] [address]Dr. Garima Pulliam IG # 0.04 10e3/ul Critically high 0.00-0.03 [facility] Comment on above: Performed By: #### C BC ####[facility] [address] [place] [id number]. Garima Pulliam IG % 0.3 % Normal 0.0-0.5 [facility] Comment on above: Performed By: #### C BC ####[facility] [address] [place] [id number]. Garima Pulliam LYMPH # 1.7 103/ul Normal 1.2-3.[address] [facility] Comment on above: Performed By: #### C BC ####[facility] [address]kmvn[address] [place] [id number]. Garima Pulliam Lymphocytes/100 WBC (Bld) 11.5 % Critically low 20.5-60.0 [facility] Comment on above: Performed By: #### C BC ####[facility] [address] [place] [id number]. Garima Pulliam MANUAL DIFF REQ NO Normal [facility] Comment on above: Performed By: #### C BC ####[facility] [address] [place] [id number]. Garima Pulliam MCH (RBC) [Entitic mass] 31.0 pg Normal 25.9-34.0 [facility] Comment on above: Performed By: #### C BC ####[facility] [address] [place] [id number]. Garima Pulliam MCHC (RBC) [Mass/Vol] 33.8 g/dL Normal 29.9-35.[address] [facility] Comment on above: Performed By: #### C BC ####[facility] [address] [place] [id number]. Garima Pulliam MCV (RBC) [Entitic vol] 91.7 fL Normal 80.0-94.[address] [facility] Comment on above: Performed By: #### C BC ####[facility] [address] [place] [id number]. Garima Heraclio MONO # 0.8 103/ul Normal 0.3-0.8 [facility] Comment on above: Performed By: #### C BC ####[facility] [address] [place] [id number]. Garima Pulliam Monocytes/100 WBC (Bld) 5.2 % Normal 1.7-12.[address] [facility] Comment on above: Performed By: #### C BC ####[facility] [address] [place] [id number]. Garima Pulliam NEUT # 11.7 103/ul Critically high 1.4-6.5 [facility] Comment on above: Performed By: #### C BC ####[facility] [address] [place] [id number]. Garima Pulliam Neutrophils/100 WBC (Bld) 81.5 % Critically high 43.0-75.[address] [facility] Comment on above: Performed By: #### C BC ####[facility] [address] [place] [address]Dr. Garima Pulliam Platelet mean volume (Bld) [Entitic vol] 8.6 fL Critically low 9.5-13.[address] [facility] Comment on above: Performed By: #### C BC ####[facility] [address] [place] [id number]. Garima Pulliam PLT 191 103/ul Normal 150-[address] [facility] Comment on above: Performed By: #### C BC ####[facility] [address] [place], [place] [id number]. Garima Pulliam RBC 5.06 106/ul Normal 4.70-6.[address] [facility] Comment on above: Performed By: #### C BC ####[facility] [address] [place], [place] [id number]. Garima Pulliam WBC 14.4 103/ul Critically high 4.0-11.0 [facility] Comment on above: Performed By: #### C BC ####[facility] [address] [place], [place] [address]Dr. Garima Pulliam [facility]24 SARS-CoV-2 (COVID-19) RNA MARIE+probe Ql (Unsp spec) Not detected Normal NOT DETECTED [facility] Comment on above: Result Comment: When [...] for this test is supported by the [place] of Health and Human Service's declaration that [...] used). Performed By: #### C VDTBH ####[facility] [address] [place], [place] [address]Dr. Garima Pulliam LACTATE/LACTIC ACIDon 2021 Lactate [Moles/Vol] 1.0 mmol/L Normal 0.4-1.9 [facility] Comment on above: Performed By: #### L ACT ####[facility] [address] [place], [place] [address]Dr. Garima Pulliam PROF CHEM 8 (BAS METB)on Anion gap [Moles/Vol] 11.6 mmol/L Normal [facility] Comment on above: Performed By: #### B NANCY HERNANDEZ ####[facility] [address] [place] [address]Dr. Garima Pulliam Calcium [Mass/Vol] 9.2 mg/dL Normal 8.5-10.1 [facility] Comment on above: Performed By: #### B NANCY HERNANDEZ ####[facility] [address] [place] [address]Dr. Garima Pulliam Chloride [Moles/Vol] 105 mmol/L Normal 98-107 [facility] Comment on above: Performed By: #### B MP, CMADM ####[facility] [address] [place] [id number]. Garima Pulliam CO2 [Moles/Vol] 25.9 mmol/L Normal 21.0-32.0 [facility] Comment on above: Performed By: #### B DAVID, CMADM ####[facility] [address] [place] [address]Dr. Garima Pulliam Creatinine [Mass/Vol] 0.72 mg/dL Normal 0.70-1.30 [facility] Comment on above: Performed By: #### B DAVID, CMADM ####[facility] [address] [place] [id number]. Garima Pulliam EGFR-AF ITALIAN >60 Normal >=60 [facility] Comment on above: Performed By: #### B DAVID, CMADM ####[facility] [address] [place] [address]Dr. Chapisrenu Pulliam EGFR-NON AF ITALIAN >60 Normal >=60 [facility] Comment on above: Performed By: #### B DAVID, CMAANA ROSA ####[facility] [address] [place] [address]Dr. Garima Pulliam Glucose [Mass/Vol] 111 mg/dL Critically high 74-106 [facility] Comment on above: Performed By: #### B DAVID, CMADM ####[facility] [address] [place] [address]Dr. Chapisrenu Pulliam Potassium [Moles/Vol] 3.5 mmol/L Normal 3.5-5.1 [facility] Comment on above: Performed By: #### B DAVID, CMADM ####[facility] [address] [place] [address]Dr. Chapisrenu Pulliam Sodium [Moles/Vol] 139 mmol/L Normal 136-145 [facility] Comment on above: Performed By: #### B DAVID, CMADM ####[facility] [address] [place] [address]Dr. Garima Pulliam Urea nitrogen [Mass/Vol] 7.0 mg/dL Normal 7.0-18.0 [facility] Comment on above: Performed By: #### B DAVID, CMADM ####[facility] [address] [place], [place] [address]Ho. Garima Pulliam Urea nitrogen/Creatinine [Mass ratio] 9.7 mg/mg Normal [facility] Comment on above: Performed By: #### B MP, CMADM ####[facility] [address] [place], [place] [address]Bn. Garima Pulliam XR CHEST 1 Von 09-12-2022 XR CHEST [address] [facility] Encounters Encounter Date Encounter Type Care [...] Start: 11-20-2022 End: 11-20-[address] KANE POLLCOK . Facility[facility] Start: 10-01-2022 End: 10-02-[address] MILADIS MELARA . Facility[facility] Start: 09-29-2022 End: 09-29-2022 ambulatory LEIA ALLEN . Facility:[facility] Start: 09-26-2022 End: 09-26-[address] MILADIS MELARA . Facility:[facility] Start: 09-15-2022 End: 09-16-[address] NASH STEVENS Facility:[facility] Start: 09-13-2022 End: 09-13-[address] SEBAS CABALLERO . Facility:[facility] Payers Date Payer Category Payer Unknown [id number] 1960 Medicaid [id number] 1960 Unknown [id number] 1960 Unknown [id number] 1954 Unknown [id number] 2.16.84 0.1.793282.3.579.2.593 1954 Unknown [id number] 2.16.84 0.1.240955.3.579.2.593 1954 Unknown [id number] 2.16.84 0.1.986852.3.579.2.593 1954 Unknown [id number] 2.16.84 0.1.193233.3.579.2.593 1954 Unknown [id number] 2.16.84 0.1.119237.3.579.2.593 1954 Unknown [id number] 2.16.84 0.1.164296.3.579.2.593 1954 Unknown [id number] 2.16.84 0.1.658148.3.579.2.593 1954 Unknown [id number] 2.16.84 0.1.162626.3.579.2.593 1954 Unknown [id number] 2.16.84 0.1.485541.3.579.2.593 1954 Unknown [id number] 2.16.84 0.1.312618.3.579.2.593 1954 Unknown [id number] 2.16.84 0.1.070801.3.579.2.593 1954 Unknown [id number] 2.16.84 0.1.856465.3.579.2.593 1954 Unknown [id number] 2.16.84 0.1.178707.3.579.2.593 1954 Unknown [id number] 2.16.84 0.1.461191.3.579.2.593 1954 Unknown [id number] 2.16.84 0.1.231905.3.579.2.593 1954 Unknown [id number] 2.16.84 0.1.879707.3.579.2.593 1954 Unknown [id number] 2.16.84 0.1.566865.3.579.2.593 1954 Unknown [id number] 2.16.84 0.1.340131.3.579.2.593 1954 Unknown [id number] 2.16.84 0.1.786897.3.579.2.593 1954 Unknown [id number] 2.16.84 0.1.834875.3.579.2.593 Summary Purpose Family History No Family History Records Found Advance Directives No Advanced Directives Records Found Additional Source Comments (unrecognized sect ion and content) No Status Records Found INFORMATION SOURCE (unrecogn ized section and content) DATE CREATED AUTHOR 04/08/2023 [facility] FOR RECORDS PERTAINING TO PATIENTS WHO [...] BE BASED ON THE PRIMARY CLINICAL RECORDS. [facility] [employer] [facility]. provides no warranty or guarantee of the accuracy or completeness of information in this document.
--- NOTE | 2024-07-01 17:16 | ED.SOB1 ---
HPI - SOB/Dyspnea General Chief Complaint: Shortness of Breath/Dyspnea Stated Complaint: sob Time Seen by Provider: 07/01/24 17:11 Source: patient Mode of arrival: Wheelchair Limitations: no limitations History of Present Illness HPI Narrative: 68-year-old male presents for difficulty breathing. He has a history of COPD and states he just needs an aerosol treatment. He comes in frequently for this issue. He has had no fever cough and does not have chest pain. Symptoms started today. Related Data Home Medications ?Medication ?Instructions ?Recorded ?Confirmed albuterol sulfate 90 mcg/actuation 2 inh inhalation Q6H PRN shortness 03/13/24 05/26/24 aerosol inhaler of breath or wheezing Previous Rx's ?Medication ?Instructions ?Recorded losartan 100 mg tablet 100 mg PO DAILY #30 tabs 12/27/23 albuterol sulfate 2.5 mg/3 mL 2.5 mg (3 mL) inhalation Q6H PRN 05/26/24 (0.083 %) solution for nebulization shortness of breath or wheezing #90 mL loratadine 10 mg tablet (Claritin) 10 mg PO DAILY #20 tabs 05/30/24 azithromycin 250 mg tablet See Rx Instructions PO .COMPLEX #6 06/12/24 (Zithromax Z-Luis) tabs prednisone 20 mg tablet 40 mg (2 x 20 mg) PO DAILY 5 days 06/12/24 #10 tabs Allergies Allergy/AdvReac Type Severity Reaction Status Date / Time No Known Drug Allergies Allergy Verified 05/30/24 00:40 Review of Systems ROS Narrative A ten point review of systems is negative except as noted above. [facility] Medical History (Updated 07/01/24 @ 17:37 by Diego Lilly MD) Hypokalemia ?E87.6 - Hypokalemia (ICD-10) New onset type 2 diabetes mellitus ?E11.9 - Type 2 diabetes mellitus without complications (ICD-10) Lower extremity edema ?R60.0 - Localized edema (ICD-10) Edema ?R60.9 - Edema, unspecified (ICD-10) Acute hyperglycemia ?R73.9 - Hyperglycemia, unspecified (ICD-10) Tobacco abuse ?Z72.0 - Tobacco use (ICD-10) HTN (hypertension) ?I10 - Essential (primary) hypertension (ICD-10) Community acquired pneumonia ?J18.9 - Pneumonia, unspecified organism (ICD-10) Chronic obstructive pulmonary disease ?J44.9 - Chronic obstructive pulmonary disease, unspecified (ICD-10) Acute exacerbation of chronic obstructive pulmonary disease (COPD) ?J44.1 - Chronic obstructive pulmonary disease with (acute) exacerbation (ICD-10) RLL pneumonia ?J18.9 - Pneumonia, unspecified organism (ICD-10) COPD (chronic obstructive pulmonary disease) ?J44.9 - Chronic obstructive pulmonary disease, unspecified (ICD-10) Surgical History (Updated 01/29/24 @ 06:45 by Latonia Martin RN) Hx of tonsillectomy ?Z90.89 - Acquired absence of other organs (ICD-10) Family History (Updated 12/25/23 @ 21:28 by Kym Ordaz) Mother Family history of cancer Family history of hypertension Father Family history of cancer Social History Within the past year, how often did you have a drink containing alcohol: 4 or more times a week Within the past year, how many standard drinks containing alcohol did you have on a typical day: 3 or 4 Within the past year, how often did you have six or more drinks on one occasion: less than monthly Total score: 3 Score interpretation: A score of 4 or more indicates drinking is likely to affect patient's safety. Smoking status: Current every day smoker Non-prescribed substance use: cannabis (any form) Previous occupational history: retired Highest level of school completed/degree received: high school graduate Are you now , , , , never or living with a partner: In a typical week, how many times do you talk on the telephone with family, friends, or neighbors: twice per week How often do you get together with friends or relatives: once per week How often do you attend catholic or scientologist services: never Do you belong to any clubs or organizations such as catholic groups unions, fraternal or athletic groups, or school groups: no Total score: 1 Score interpretation: A score of less than or equal to 1 indicates the most socially isolated. Little interest or pleasure in doing things: several days Feeling down, depressed, or hopeless: not at all Feel stressed/tense/nervous/anxious/difficulty sleeping: not at all Do you think of yourself as: straight/heterosexual Gender Identity: male Exam Narrative Exam Narrative: Nurses note and vital signs reviewed and patient is not hypoxic. General: The patient appears in no apparent distress. Skin: Warm, dry, no pallor noted. There is no rash noted. Head: Normocephalic, atraumatic Eye: Normal conjunctiva, no drainage Ears, Nose, Mouth, and Throat: oral mucosa is moist. Nares patent. Cardiovascular: Regular Rate and Rhythm, not tachycardic Respiratory: Bilateral rhonchi present with good air move Back: non-tender GI: Soft and nontender Musculoskeletal: The patient has no evidence of calf tenderness, no pitting edema, symmetrical pulses noted bilaterally Neurological: Awake and alert Psychiatric: Cooperative Constitutional Vital Signs, click to edit/add: Last Vital Signs Temp 97.5 F L 07/01/24 17:03 Pulse 78 07/01/24 17:23 Resp 22 H 07/01/24 17:03 BP 180/80 H 07/01/24 17:03 Pulse Ox 95 07/01/24 17:23 O2 Del Method Room Air 07/01/24 17:23 Course Vital Signs Vital signs: Vital Signs Temperature 97.5 F L 07/01/24 17:03 Pulse Rate 80 07/01/24 17:03 Respiratory Rate 22 H 07/01/24 17:03 Blood Pressure 180/80 H 07/01/24 17:03 Pulse Oximetry 95 07/01/24 17:03 Oxygen Delivery Method Room Air 07/01/24 17:03 Temperature 97.5 F L 07/01/24 17:03 Pulse Rate 78 07/01/24 17:23 Respiratory Rate 22 H 07/01/24 17:03 Blood Pressure 180/80 H 07/01/24 17:03 Pulse Oximetry 95 07/01/24 17:23 Oxygen Delivery Method Room Air 07/01/24 17:23 MDM - SOB/Dyspnea MDM Narrative Medical decision making narrative: He was given an aerosol treatment and feels much better and is requesting to be discharged. Treatment diagnosis and follow-up were discussed with the patient. Differential Diagnosis Differential diagnosis: Likely acute exacerbation of chronic obstructive airways disease, congestive heart failure and community acquired pneumonia Discharge Plan Discharge Stand Alone Forms: Portal Instructions Chief Complaint: Shortness of Breath/Dyspnea Clinical Impression: COPD (chronic obstructive pulmonary disease) Patient Disposition: Home, Self-Care Time of Disposition Decision: 17:37 Condition: Good Mode of Transportation: Private Vehicle Prescriptions / Home Meds: No Action losartan 100 mg tablet 100 mg PO DAILY Qty: 30 11RF albuterol sulfate 90 mcg/actuation HFA aerosol inhaler 2 inh inhalation Q6H PRN (Reason: shortness of breath or wheezing) albuterol sulfate 2.5 mg /3 mL (0.083 %) solution for nebulization 2.5 mg inhalation Q6H PRN (Reason: shortness of breath or wheezing) Qty: 90 0RF loratadine [Claritin] 10 mg tablet 10 mg PO DAILY Qty: 20 0RF prednisone 20 mg tablet 40 mg PO DAILY 5 Days Qty: 10 0RF azithromycin [Zithromax Z-Luis] 250 mg tablet See Rx Instructions .ROUTE .COMPLEX Qty: 6 0RF Rx Instructions: For 250 mg dose pack: take 500 mg today (day 1), then 250 mg for 4 days (days 2-5) Print Language: Bahraini Instructions: COPD (Chronic Obstructive Pulmonary Disease) (ED) Referrals: SERG DUENAS [Primary Care Provider] - 1 week
[2024-07-01] MEDS: ALBUTEROL SULFATE 2.5 MG/3 ML VIAL NEB IH (17:22)
[2024-07-01 17:23] VITALS: PULSE 78; O2SAT 95
== END 2024-07-01 17:44 | disposition home or self-care (01) ==
PROVIDERS: Emergency Provider Emergency Medicine
DX: J44.9 Chronic obstructive pulmonary disease, unspecified (principal); F17.200 Nicotine dependence, unspecified, uncomplicated
CPT/HCPCS: 94640; 99283

== ENCOUNTER 2024-08-05 02:20 | Emergency (ER) | payer MEDICARE, SELFPAY ==
[2024-08-05 02:26] VITALS: BP 170/125; PULSE 85; TEMP 36.6; O2SAT 95; BMI 23.7
--- NOTE | 2024-08-05 02:33 | ED.SOB1 ---
HPI - SOB/Dyspnea General Chief Complaint: Shortness of Breath/Dyspnea Stated Complaint: SOB Time Seen by Provider: 08/05/24 02:24 Source: patient Mode of arrival: walk-in Limitations: no limitations History of Present Illness HPI Narrative: history of COPD. current smoker. well known to the department. Presents requesting NMT treatment for his COPD. Denies chest pain or fever. No abdominal pain or nausea Related Data Home Medications ?Medication ?Instructions ?Recorded ?Confirmed albuterol sulfate 90 mcg/actuation 2 inh inhalation Q6H PRN shortness 03/13/24 05/26/24 aerosol inhaler of breath or wheezing Previous Rx's ?Medication ?Instructions ?Recorded losartan 100 mg tablet 100 mg PO DAILY #30 tabs 12/27/23 albuterol sulfate 2.5 mg/3 mL 2.5 mg (3 mL) inhalation Q6H PRN 05/26/24 (0.083 %) solution for nebulization shortness of breath or wheezing #90 mL loratadine 10 mg tablet (Claritin) 10 mg PO DAILY #20 tabs 05/30/24 Allergies Allergy/AdvReac Type Severity Reaction Status Date / Time No Known Drug Allergies Allergy Verified 05/30/24 00:40 Review of Systems ROS Status of ROS 10 or more systems reviewed and unremarkable except as noted in history and below [facility] Medical History (Updated 08/05/24 @ 03:34 by Júnior Andrade MD) Hypokalemia ?E87.6 - Hypokalemia (ICD-10) New onset type 2 diabetes mellitus ?E11.9 - Type 2 diabetes mellitus without complications (ICD-10) Lower extremity edema ?R60.0 - Localized edema (ICD-10) Edema ?R60.9 - Edema, unspecified (ICD-10) Acute hyperglycemia ?R73.9 - Hyperglycemia, unspecified (ICD-10) Tobacco abuse ?Z72.0 - Tobacco use (ICD-10) HTN (hypertension) ?I10 - Essential (primary) hypertension (ICD-10) Community acquired pneumonia ?J18.9 - Pneumonia, unspecified organism (ICD-10) Chronic obstructive pulmonary disease ?J44.9 - Chronic obstructive pulmonary disease, unspecified (ICD-10) Acute exacerbation of chronic obstructive pulmonary disease (COPD) ?J44.1 - Chronic obstructive pulmonary disease with (acute) exacerbation (ICD-10) RLL pneumonia ?J18.9 - Pneumonia, unspecified organism (ICD-10) COPD (chronic obstructive pulmonary disease) ?J44.9 - Chronic obstructive pulmonary disease, unspecified (ICD-10) Surgical History (Updated 01/29/24 @ 06:45 by Latonia Martin RN) Hx of tonsillectomy ?Z90.89 - Acquired absence of other organs (ICD-10) Family History (Updated 12/25/23 @ 21:28 by Kym Ordaz) Mother Family history of cancer Family history of hypertension Father Family history of cancer Social History Within the past year, how often did you have a drink containing alcohol: 4 or more times a week Within the past year, how many standard drinks containing alcohol did you have on a typical day: 3 or 4 Within the past year, how often did you have six or more drinks on one occasion: less than monthly Total score: 3 Score interpretation: A score of 4 or more indicates drinking is likely to affect patient's safety. Smoking status: Current every day smoker Non-prescribed substance use: cannabis (any form) Previous occupational history: retired Highest level of school completed/degree received: high school graduate Are you now , , , , never or living with a partner: In a typical week, how many times do you talk on the telephone with family, friends, or neighbors: twice per week How often do you get together with friends or relatives: once per week How often do you attend gnosticist or alevism services: never Do you belong to any clubs or organizations such as gnosticist groups unions, fraternal or athletic groups, or school groups: no Total score: 1 Score interpretation: A score of less than or equal to 1 indicates the most socially isolated. Little interest or pleasure in doing things: not at all Feeling down, depressed, or hopeless: not at all Feel stressed/tense/nervous/anxious/difficulty sleeping: not at all Do you think of yourself as: straight/heterosexual Gender Identity: male Exam Constitutional Vital Signs, click to edit/add: Last Vital Signs Temp 98 F 08/05/24 02:26 Pulse 78 08/05/24 02:56 Resp 20 08/05/24 02:56 BP 170/125 H 08/05/24 02:26 Pulse Ox 98 08/05/24 02:56 O2 Del Method Room Air 08/05/24 02:56 Common normals: no apparent distress, oriented x3, no limitations, healthy appearing, alert and well nourished [facility] Common normals: normocephalic and head/scalp atraumatic Eye Common normals: EOMs intact bilaterally and conjunctivae normal Chest Common normals: inspection of chest normal Respiratory Common normals: normal respiratory effort, no retractions, no use of accessory muscles and clear to auscultation bilaterally (diminished breath sounds) Cardio Common normals: regular rate, regular rhythm, S1 normal heart sound and S2 normal heart sound Extremity Common normals: normal to inspection and full ROM Neuro Common normals: oriented x3, CN's II-XII intact bilaterally and moves all extremities Psych Appearance: grossly normal Course Vital Signs Vital signs: Vital Signs Temperature 98 F 08/05/24 02:26 Pulse Rate 85 08/05/24 02:26 Respiratory Rate 18 08/05/24 02:26 Blood Pressure 170/125 H 08/05/24 02:26 Pulse Oximetry 95 08/05/24 02:26 Oxygen Delivery Method Room Air 08/05/24 02:26 Temperature 98 F 08/05/24 02:26 Pulse Rate 78 08/05/24 02:56 Respiratory Rate 20 08/05/24 02:56 Blood Pressure 170/125 H 08/05/24 02:26 Pulse Oximetry 98 08/05/24 02:56 Oxygen Delivery Method Room Air 08/05/24 02:56 MDM - SOB/Dyspnea MDM Narrative Medical decision making narrative: patient well known to the department. Presents requesting albuterol NMT for his COPD. No chest pain. Did not feel he needed to have any blood work done. usually he gets an NMT treatment and goes home. cxray also performed and there are no acute findings. Patient is feeling better after duoneb treatment and is discharged home to follow up with his doctor Imaging Data Chest x-ray: Radiologist's impression: ITS Impressions Chest X-Ray 08/05/24 02:37 IMPRESSION: 1. Clear lungs without acute cardiopulmonary findings on x-ray. 2. 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 Old healed posterior lateral right ninth rib fracture. No acute osseous pathology. These changes are chronic and stable dating back to 03/27/2021. Electronically authenticated by: TAPAN JIMENEZ Date: 08/05/2024 04:01 Discharge Plan Discharge Chief Complaint: Shortness of Breath/Dyspnea Clinical Impression: COPD (chronic obstructive pulmonary disease) Patient Disposition: Home, Self-Care Prescriptions / Home Meds: No Action losartan 100 mg tablet 100 mg PO DAILY Qty: 30 11RF albuterol sulfate 90 mcg/actuation HFA aerosol inhaler 2 inh inhalation Q6H PRN (Reason: shortness of breath or wheezing) albuterol sulfate 2.5 mg /3 mL (0.083 %) solution for nebulization 2.5 mg inhalation Q6H PRN (Reason: shortness of breath or wheezing) Qty: 90 0RF loratadine [Claritin] 10 mg tablet 10 mg PO DAILY Qty: 20 0RF Print Language: Georgian Instructions: COPD (Chronic Obstructive Pulmonary Disease) (ED) Additional Instructions: follow up with your doctor early next week for recheck Referrals: SERG DUENAS [Primary Care Provider] - 1 week
--- OUTSIDE RECORDS SUMMARY | 2024-08-05 02:34 | XMS_ITS | CCD ---
Author Organization [facility] CliniSysc Care Team Providers Care Olericulture Professor Name Role Phone REQUEST, DR NONE LISTED [...] Consulting Unavailable TIFFANY ., LEIA Attending Unavailable TFIFANY ., LEIA Admitting Unavailable WEST, DR REGINALDO [...] LISTED Primary Care Unavaila ble TAAVRES, KENTRELL Consulting Unavailable TAVARES, KENTRELL Admitting Unavailable [...] (1 source) Penicillin Drug Allergy 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 Comment on above: Performed By: #### C BC ####[facility] [address] [place] [address]Dr. Garima Pulliam Basophils/100 WBC (Bld) 0.3 % Normal 0.2-2.[address] [facility] Comment on above: Performed By: #### C BC ####[facility] Psclsblkxz9160 [place] [address]DrAdalberto Pulliam EO # 0.3 103/ul Normal 0.0-0.[address] [facility] Comment on above: Performed By: #### C BC ####[facility] [address] [place], [place] [address]Dr. Garima Pulliam Eosinophils/100 WBC (Bld) 2.8 % Normal 0.9-7.[address] [facility] Comment on above: Performed By: #### C BC ####[facility] Jdghjqrbxq90[address] [place] [address]Dr. Garima Pulliam Erythrocyte distribution width (RBC) [Ratio] 13.4 % Normal 11.0-15.[address] [facility] Comment on above: Performed By: #### C BC ####[facility] [address]agmjtcune[address] [place] [address]Dr. Garima Pulliam Hematocrit (Bld) [Volume fraction] 45.7 % Normal 42.0-54.[address] [facility] Comment on above: Performed By: #### C BC ####[facility] Urutwcnita[address] [place] [address]Dr. Garima Pulliam Hemoglobin (Bld) [Mass/Vol] 15.2 g/dL Normal 14.0-18.[address] [facility] Comment on above: Performed By: #### C BC ####[facility] Otrzsqooav[address] [place] [address]Dr. Garima Pulliam IG # 0.02 10e3/ul Normal 0.00-0.[address] [facility] Comment on above: Performed By: #### C BC ####[facility] Cbqswctvrb85[address] [place] [address]Dr. Garima Pulliam IG % 0.2 % Normal 0.0-0.[address] [facility] Comment on above: Performed By: #### C BC ####[facility] Ilteabdyix[address] [place] [address]Dr. Garima Pulliam LYMPH # 2.1 103/ul Normal 1.2-3.[address] [facility] Comment on above: Performed By: #### C BC ####[facility] Mlqpmxmlwb1368 [place] [address]Dr. Garima Pulliam Lymphocytes/100 WBC (Bld) 23.7 % Normal 20.5-60.[address] [facility] Comment on above: Performed By: #### C BC ####[facility] Tsgkojmbot18[address] [place] [address]Dr. Garima Heraclio MANUAL DIFF REQ NO Normal [facility] Comment on above: Performed By: #### C BC ####[facility] Mgtieemime5[address] [place] [address]Dr. Garima Pulliam MCH (RBC) [Entitic mass] 30.4 pg Normal 25.9-34.[address] [facility] Comment on above: Performed By: #### C BC ####[facility] Dpgbpdmqmt0260 [place] [address]Dr. Garima Heraclio MCHC (RBC) [Mass/Vol] 33.3 g/dL Normal 29.9-35.[address] [facility] Comment on above: Performed By: #### C BC ####[facility] [address]rokt[address] [place], [place] [address]Dr. Chapisrenu Pulliam MCV (RBC) [Entitic vol] 91.4 fL Normal 80.0-94.[address] [facility] Comment on above: Performed By: #### C BC ####[facility] [address]szktdxphm[address] [place], [place] [address]Dr. Garima Heraclio MONO # 0.7 103/ul Normal 0.3-0.[address] [facility] Comment on above: Performed By: #### C BC ####[facility] Zwbsqacnoe[address] [place], [place] [address]Dr. Chapisrenu Pulliam Monocytes/100 WBC (Bld) 8.3 % Normal 1.7-12.[address] [facility] Comment on above: Performed By: #### C BC ####[facility] Dsvcymqzsb8206 [place] [address]Dr. Chapisrenu Heraclio NEUT # 5.8 103/ul Normal 1.4-6.[address] [facility] Comment on above: Performed By: #### C BC ####[facility] Xomualguam[address] [place], [place] [address]Dr. Garima Pulliam Neutrophils/100 WBC (Bld) 64.7 % Normal 43.0-75.[address] [facility] Comment on above: Performed By: #### C BC ####[facility] Yuklxoehvx38[address] [place] [address]Dr. Garima Pulliam Platelet mean volume (Bld) [Entitic vol] 8.6 fL Critically low 9.5-13.5 [facility] Comment on above: Performed By: #### C BC ####[facility] Wzvsxdcboi01[address] [place] [address]Dr. Garima Pulliam PLT 230 103/ul Normal 150-[address] [facility] Comment on above: Performed By: #### C BC ####[facility] Dpcyykcdqp5843 [place] [address]Dr. Chapisrenu Heraclio RBC 5.00 106/ul Normal 4.70-6.10 [facility] Comment on above: Performed By: #### C BC ####[facility] Tplscsdnjk6104 [place] [address]Dr. Garima Heraclio WBC 9.0 103/ul Normal 4.0-11.[address] [facility] Comment on above: Performed By: #### C BC ####[facility] Wsfvgskvmf488[address] [place] [address]Dr. Garima Pulliam MAGNESIUMon 04-04-2023 Magnesium [Mass/Vol] 1.8 mg/dL Normal 1.8-2.4 [facility] Comment on above: Performed By: #### M G ####[facility] Ncmmpbmrzp75[address] [place] [address]Dr. Chapisrenu Pulliam PROF 14(COMP METB)on 023 Albumin [Mass/Vol] 3.8 g/dL Normal 3.4-5.0 [facility] Comment on above: Performed By: #### C MP ####[facility] Nmijdhkafc8[address] [place] [address]Dr. Garima Pulliam Albumin/Globulin [Mass ratio] 1.2 {ratio} Normal [facility] Comment on above: Performed By: #### C MP ####[facility] Cpxqnbxglt1614 [place] [address]Dr. Garima Heraclio ALP [Catalytic activity/Vol] 84 U/L Normal 46-[address] [facility] Comment on above: Performed By: #### C MP ####[facility] Csiwgbfayz2788 [place] [id number]. Garima Pulliam ALT [Catalytic activity/Vol] 31 U/L Normal 16-[address] [facility] Comment on above: Performed By: #### C MP ####[facility] Rrexanhkay8405 [place] [address]Dr. Garima Pulliam Anion gap [Moles/Vol] 12.2 mmol/L Normal [facility] Comment on above: Performed By: #### C MP ####[facility] Nucefiydgr0415 [place] [address]Dr. Garima Pulliam AST [Catalytic activity/Vol] 23 U/L Normal 15-[address] [facility] Comment on above: Performed By: #### C MP ####[facility] Mzoiotngft[address] [place], [place] [address]Dr. Garima Pulliam Bilirubin [Mass/Vol] 0.5 mg/dL Normal 0.2-1.[address] [facility] Comment on above: Performed By: #### C MP ####[facility] Artjqfgkfe[address] [place], [place] [address]Dr. Garima Pulliam Calcium [Mass/Vol] 9.2 mg/dL Normal 8.5-10.1 [facility] Comment on above: Performed By: #### C MP ####[facility] Praiqspotf[address] [place], [place] [address]Dr. Garima Pulliam Chloride [Moles/Vol] 103 mmol/L Normal 98-[address] [facility] Comment on above: Performed By: #### C MP ####[facility] Xvfsewzjap7501 [place] [address]Dr. Garima Pulliam CO2 [Moles/Vol] 28.5 mmol/L Normal 21.0-32.[address] [facility] Comment on above: Performed By: #### C MP ####[facility] Algroapqqa[address] [place], [place] [address]Dr. Garima Pulliam Creatinine [Mass/Vol] 0.74 mg/dL Normal 0.70-1.30 [facility] Comment on above: Performed By: #### C MP ####[facility] Lycqyozmlh039[address] [place] [id number]. Garima Pulliam EGFR-AF AUSTRIAN >60 Normal >=[address] [facility] Comment on above: Performed By: #### C MP ####[facility] Qljsumizop8188 [place] [address]Dr. Garima Heraclio EGFR-NON AF AUSTRIAN >60 Normal >=[address] [facility] Comment on above: Performed By: #### C MP ####[facility] Gwcfowljhj1715 [place] [id number]. Garima Heraclio Globulin (S) [Mass/Vol] 3.1 g/dL Normal [facility] Comment on above: Performed By: #### C MP ####[facility] Fxdchghiti[address] [place], [place] [address]Dr. Garima Heraclio Glucose [Mass/Vol] 93 mg/dL Normal 74-106 [facility] Comment on above: Performed By: #### C MP ####[facility] Rfsxrhlrmz[address] [place], [place] [address]Dr. Garima Heraclio Potassium [Moles/Vol] 3.7 mmol/L Normal 3.5-5.[address] [facility] Comment on above: Performed By: #### C MP ####[facility] Bxnkahjhun[address] [place], [place] [address]Dr. Garima Heraclio Protein [Mass/Vol] 6.9 g/dL Normal 6.4-8.2 [facility] Comment on above: Performed By: #### C MP ####[facility] Twvyvsrvhk[address] [place], [place] [address]Dr. Garima Heraclio Sodium [Moles/Vol] 140 mmol/L Normal 136-145 [facility] Comment on above: Performed By: #### C MP ####[facility] Qafsknzwai[address] [place], [place] [address]Dr. Garima Pulliam Urea nitrogen [Mass/Vol] 8.0 mg/dL Normal 7.0-18.[address] [facility] Comment on above: Performed By: #### C MP ####[facility] Tylgoqxnve[address] [place], [place] [address]Dr. Garima Pulliam Urea nitrogen/Creatinine [Mass ratio] 10.8 mg/mg Normal [facility] Comment on above: Performed By: #### C DAVID ####[facility] Kyqrvkdolc98[address] [place] [address]Dr. Garima Pulliam AMMONIAon 03-30-2023 Ammonia (P) [Moles/Vol] 11 umol/L Normal 11-[address] [facility] Comment on above: Performed By: #### A MM ####[facility] [address]kldlnoq[address] [place], [place] [address]Dr. Garima Pulliam CARDIAC NASH ADMITon 023 CK [Catalytic activity/Vol] 232 U/L Normal 39-[address] [facility] Comment on above: Performed By: #### C NANCY HERNANDEZ ####[facility] Ctpbxzufgq8224 [place] [address]Dr. Chapisrenu Pulliam CK.MB [Mass/Vol] 4.83 ng/mL Critically high <=3.[address] [facility] Comment on above: Performed By: #### C NANCY HERNANDEZ ####[facility] Hsqiveihao[address] [place], [place] [address]Dr. Garima Pulliam HSTROP 10.5 pg/mL Normal 4.0-76.[address] [facility] Comment on above: Result Comment: CUT- OFF POINTS HAVE BEEN ESTABLISHED BASED ON THE FOURTH UNIVERSAL DEFINITIONS OF MYOCARDIALINFARCTION. THE UPPER REFERENCE LIMIT (URL) OF TROPONIN, DEFINED THE 99TH PERCENTILE OFcTnI DISTRIBUTION IN A REFERENCE POPULATION, HAS BEEN CONFIRMED THE DECISION THRESHOLDFOR OK DIAGNOSIS. Performed By: #### C NANCY HERNANDEZ ####[facility] Lhrxxsssra[address] [place], [place] [address]Dr. Garima Heraclio DORIS 79 ng/mL Normal 16-[address] [facility] Comment on above: Performed By: #### C NANCY HERNANDEZ ####[facility] Bjjdrjjrvw[address] [place], [place] [address]Dr. Garima Heraclio CBC AUTO DIFFon 03-30-2023 BASO # 0.0 103/ul Normal 0.0-0.[address] [facility] Comment on above: Performed By: #### C BC ####[facility] Ycflbusecs4261 [place] [address]Dr. Garima Pulliam Basophils/100 WBC (Bld) 0.1 % Critically low 0.2-2.[address] [facility] Comment on above: Performed By: #### C BC ####[facility] Ufhbpfkbvv3380 [place] [address]Dr. Garima Pulliam EO # 0.3 103/ul Normal 0.0-0.[address] [facility] Comment on above: Performed By: #### C BC ####[facility] [address] [place], [place] [address]Dr. Garima Pulliam Eosinophils/100 WBC (Bld) 3.3 % Normal 0.9-7.[address] [facility] Comment on above: Performed By: #### C BC ####[facility] Zvcysllwbh[address] [place], [place] [address]Dr. Garima Pulliam Erythrocyte distribution width (RBC) [Ratio] 13.5 % Normal 11.0-15.[address] [facility] Comment on above: Performed By: #### C BC ####[facility] Yffvcujsuu[address] [place], [place] [address]Dr. Garima Pulliam Hematocrit (Bld) [Volume fraction] 42.9 % Normal 42.0-54.[address] [facility] Comment on above: Performed By: #### C BC ####[facility] Jtemzgkawi[address] [place], [place] [address]Dr. Garima Pulliam Hemoglobin (Bld) [Mass/Vol] 13.9 g/dL Critically low 14.0-18.[address] [facility] Comment on above: Performed By: #### C BC ####[facility] Pfcgwkjioo9395 [place] [address]Dr. Garima Pulliam IG # 0.01 10e3/ul Normal 0.00-0.[address] [facility] Comment on above: Performed By: #### C BC ####[facility] P[address]lzd[address] [place], [place] [address]Dr. Garima Pulliam IG % 0.1 % Normal 0.0-0.[address] [facility] Comment on above: Performed By: #### C BC ####[facility] Ktreooitph0834 [place] [address]Dr. Garima Pulliam LYMPH # 1.7 103/ul Normal 1.2-3.[address] [facility] Comment on above: Performed By: #### C BC ####[facility] Ebicipsyuq6872 [place], [place] [address]Hd. Garima Pulliam Lymphocytes/100 WBC (Bld) 22.8 % Normal 20.5-60.[address] [facility] Comment on above: Performed By: #### C BC ####[facility] Bnwzzamkpq3207 [place] [address]Dr. Garima Heraclio MANUAL DIFF REQ NO Normal [facility] Comment on above: Performed By: #### C BC ####[facility] Xbtaaslubb4739 [place] [address]Dr. Garima Heraclio MCH (RBC) [Entitic mass] 30.5 pg Normal 25.9-34.[address] [facility] Comment on above: Performed By: #### C BC ####[facility] Evmxrzcwvf4161 [place] [address]Dr. Garima Pulliam MCHC (RBC) [Mass/Vol] 32.4 g/dL Normal 29.9-35.[address] [facility] Comment on above: Performed By: #### C BC ####[facility] Gksmbooqec6189 [place] [address]Dr. Garima Heraclio MCV (RBC) [Entitic vol] 94.1 fL Critically high 80.0-94.[address] [facility] Comment on above: Performed By: #### C BC ####[facility] Nbghgrmurp0931 [place] [address]Dr. Garima Heraclio MONO # 0.7 103/ul Normal 0.3-0.[address] [facility] Comment on above: Performed By: #### C BC ####[facility] Tphpyavttk1223 [place] [address]Dr. Garima Heraclio Monocytes/100 WBC (Bld) 8.6 % Normal 1.7-12.[address] [facility] Comment on above: Performed By: #### C BC ####[facility] Wdyzgldsgy2301 [place] [address]Dr. Garima Pulliam NEUT # 4.9 103/ul Normal 1.4-6.[address] [facility] Comment on above: Performed By: #### C BC ####[facility] Ztdfbulsap6245 [place] [address]Dr. Garima Pulliam Neutrophils/100 WBC (Bld) 65.1 % Normal 43.0-75.[address] [facility] Comment on above: Performed By: #### C BC ####[facility] Zgvqazrcfj7785 [place] [address]Dr. Garima Pulliam Platelet mean volume (Bld) [Entitic vol] 8.5 fL Critically low 9.5-13.5 [facility] Comment on above: Performed By: #### C BC ####[facility] Srkfsaccga6377 [place] [address]Dr. Garima Pulliam PLT 219 103/ul Normal 150-[address] [facility] Comment on above: Performed By: #### C BC ####[facility] Sunqvbemsy3750 [place] [address]Dr. Garima Pulliam RBC 4.56 106/ul Critically low 4.70-6.10 [facility] Comment on above: Performed By: #### C BC ####[facility] Fgemttuvuw5848 [place] [address]Dr. Garima Pulliam WBC 7.6 103/ul Normal 4.0-11.[address] [facility] Comment on above: Performed By: #### C BC ####[facility] Fancqnqjel6145 [place] [address]Dr. Garima Pulliam LACTATE/LACTIC ACIDon 2022 Lactate [Moles/Vol] 1.2 mmol/L Normal 0.4-2.0 [facility] Comment on above: Performed By: #### L ACT ####[facility] Tvwailumie2791 [place] [address]Dr. Garima Pulliam MAGNESIUMon 03-30-2023 Magnesium [Mass/Vol] 1.8 mg/dL Normal 1.8-2.4 [facility] Comment on above: Performed By: #### M G ####[facility] Bpumtojxtb18[address] [place] [address]Dr. Garima Pulliam PROF 14(COMP METB)on 023 Albumin [Mass/Vol] 3.5 g/dL Normal 3.4-5.0 [facility] Comment on above: Performed By: #### C DAVID, CMAANA ROSA ####[facility] Wklofddqbn7983 [place] [address]Dr. Garima Pulliam Albumin/Globulin [Mass ratio] 1.2 {ratio} Normal [facility] Comment on above: Performed By: #### C DAVID, CMAANA ROSA ####[facility] Ardvkcggei1920 [place] [address]Dr. Garima Pulliam ALP [Catalytic activity/Vol] 85 U/L Normal 46-116 [facility] Comment on above: Performed By: #### C DAVID, CMAANA ROSA ####[facility] [address]wtfaqgm[address] [place], [place] [address]Dr. Garima Pulliam ALT [Catalytic activity/Vol] 29 U/L Normal 16-63 [facility] Comment on above: Performed By: #### C DAVID, CMAANA ROSA ####[facility] Qqrkvltdip8588 [place] [address]Dr. Garima Pulliam Anion gap [Moles/Vol] 8.0 mmol/L Normal [facility] Comment on above: Performed By: #### C DAVID, CMAANA ROSA ####[facility] Knpmgwehyi8519 [place] [address]Dr. Garima Pulliam AST [Catalytic activity/Vol] 18 U/L Normal 15-[address] [facility] Comment on above: Performed By: #### C DAVID, CMADM ####[facility] Ckftchcciz2359 [place] [address]Dr. Garima Pulliam Bilirubin [Mass/Vol] 0.4 mg/dL Normal 0.2-1.[address] [facility] Comment on above: Performed By: #### C DAVID, CMADM ####[facility] Gjqizsojsb9327 [place] [address]Dr. Garima Pulliam Calcium [Mass/Vol] 8.8 mg/dL Normal 8.5-10.1 [facility] Comment on above: Performed By: #### C DAVID, NANCY ####[facility] Lagkpekeau4617 [place] [address]Dr. Chapisrenu Pulliam Chloride [Moles/Vol] 108 mmol/L Critically high 98-107 [facility] Comment on above: Performed By: #### C DAVID, NANCY ####[facility] Zjfcudbfvf4259 [place] [address]Dr. Garima Pulliam CO2 [Moles/Vol] 29.6 mmol/L Normal 21.0-32.[address] [facility] Comment on above: Performed By: #### C NANCY HERNANDEZ ####[facility] Urvmfbhwon[address] [place], [place] [address]Dr. Garima Pulliam Creatinine [Mass/Vol] 0.77 mg/dL Normal 0.70-1.30 [facility] Comment on above: Performed By: #### C NANCY HERNANDEZ ####[facility] [address]tun[address] [place], [place] [address]Dr. Garima Heraclio EGFR-AF AUSTRIAN >60 Normal >=[address] [facility] Comment on above: Performed By: #### C NANCY HERNANDEZ ####[facility] [address]iqgoqqd94[address] [place], [place] [address]Dr. Garima Heraclio EGFR-NON AF AUSTRIAN >60 Normal >=60 [facility] Comment on above: Performed By: #### C NANCY HERNANDEZ ####[facility] Azmlruyiss83[address] [place] [address]Dr. Garima Pulliam Globulin (S) [Mass/Vol] 2.8 g/dL Normal [facility] Comment on above: Performed By: #### C NANCY HERNANDEZ ####[facility] Zwmlimfmxl2558 [place] [address]Dr. Garima Pulliam Glucose [Mass/Vol] 207 mg/dL Critically high 74-106 [facility] Comment on above: Performed By: #### C NANCY HERNANDEZ ####[facility] [address]yrprxnhpv[address] [place], [place] [address]Dr. Garima Pulliam Potassium [Moles/Vol] 4.6 mmol/L Normal 3.5-5.1 [facility] Comment on above: Performed By: #### C DAVID, NANCY ####[facility] Jlxrkdnzwl6953 [place] [address]Dr. Garima Pulliam Protein [Mass/Vol] 6.3 g/dL Critically low 6.4-8.[address] [facility] Comment on above: Performed By: #### C DAVID, NANCY ####[facility] Kdhowgidml0532 [place] [address]Dr. Garima Pulliam Sodium [Moles/Vol] 141 mmol/L Normal 136-145 [facility] Comment on above: Performed By: #### C DAVID, NANCY ####[facility] Jonpplopyv0954 [place] [address]Dr. Garima Pulliam Urea nitrogen [Mass/Vol] 9.0 mg/dL Normal 7.0-18.0 [facility] Comment on above: Performed By: #### C DAVID, NANCY ####[facility] Auneqvbhvf7148 [place] [address]Dr. Garima Pulliam Urea nitrogen/Creatinine [Mass ratio] 11.7 mg/mg Normal [facility] Comment on above: Performed By: #### C DAVID, NANCY ####[facility] Kzqltsshhh4602 [place] [address]Dr. Garima Pulliam XR CHEST 1 Von 03-30-2023 XR CHEST 1 V Normal [facility] BNPon 03-27-2023 Natriuretic peptide B (Bld) [Mass/Vol] 251.0 pg/mL Normal <=900.0 [facility] Comment on above: Performed By: #### C MP, BNP, LIPID ####[facility] Acqkjetfaz38[address] [place] [address]Dr. Garima Pulliam GLYCOHEMOGLOBIN A1Con 2022 ADA RECOMMENDATION SEE BELOW Normal [facility] Comment on above: Result Comment: ADA RECOMMENDED LIMIT 4.0 - 6.0 ADA THERAPEUTIC TARGET < 7.0 ACTION SUGGESTED > 7.0 Performed By: #### A 1C ####[facility] Drlzonvmei1485 [place] [address]Dr. Garima Pulliam Glucose [Mass/Vol] 180 mg/dL Normal [facility] Comment on above: Performed By: #### A 1C ####[facility] [address]qogtze[address] [place], [place] [address]Dr. Chapisrenu Pulliam HbA1c (Bld) [Mass fraction] 7.9 % Critically high 4.5-6.2 [facility] Comment on above: Performed By: #### A 1C ####[facility] [address]umgskpc[address] [place], [place] [address]Dr. Garima Pulliam HEMOGRAM AND PLATELon 2022 Hematocrit (Bld) [Volume fraction] 45.7 % Normal 42.0-54.0 [facility] Comment on above: Performed By: #### H H ####[facility] [address]vjjjqrjo[address] [place], [place] [address]Dr. Garima Pulliam Hemoglobin (Bld) [Mass/Vol] 15.1 g/dL Normal 14.0-18.0 [facility] Comment on above: Performed By: #### H H ####[facility] [address]ioqivxyj[address] [place], [place] [address]Dr. Garima Pulliam MCH (RBC) [Entitic mass] 30.0 pg Normal 25.9-34.0 [facility] Comment on above: Performed By: #### H H ####[facility] [address]hyjdqluyu[address] [place], [place] [address]Dr. Garima Pulliam MCHC (RBC) [Mass/Vol] 33.0 g/dL Normal 29.9-35.[address] [facility] Comment on above: Performed By: #### H H ####[facility] Dhdxgwkvqg[address] [place], [place] [address]Dr. Garima Pulliam MCV (RBC) [Entitic vol] 90.7 fL Normal 80.0-94.0 [facility] Comment on above: Performed By: #### H H ####[facility] [address]ypaavjp[address] [place], [place] [address]Dr. Garima Pulliam PLT 222 103/ul Normal 150-[address] [facility] Comment on above: Performed By: #### H H ####[facility] Jiiomzedro8655 [place] [id number]. aGrima Pulliam RBC 5.04 106/ul Normal 4.70-6.10 [facility] Comment on above: Performed By: #### H H ####[facility] Kopiwqqhpl0740 [place] [address]Dr. Garima Pulliam WBC 8.7 103/ul Normal 4.0-11.0 [facility] Comment on above: Performed By: #### H H ####[facility] Iwdlruponz0129 [place] [id number]. Garima Pulliam LIPID PROFILEon 03-27-2023 CHOL-HDL RATIO NORM SEE BELOW Normal [facility] Comment on above: Result Comment: 3.3 - 4.4 LOW RISK 4.4 - 7.1 AVERAGE RISK 7.1 - 11.0 MODERATE RISK >11.0 HIGH RISK Performed By: #### C MP, BNP, LIPID ####[facility] Wivvplgqmr[address] [place] [address]Dr. Garima Pulliam Cholesterol [Mass/Vol] 113 mg/dL Normal <=200 [facility] Comment on above: Performed By: #### C MP, BNP, LIPID ####[facility] Fvtntqcnsk7490 [place] [address]Dr. Garima Pulliam Cholesterol in HDL [Mass/Vol] 51 mg/dL Normal 40-60 [facility] Comment on above: Performed By: #### C MP, BNP, LIPID ####[facility] Twghdqpbxn4300 [place] [address]Dr. Garima Pulliam Cholesterol in LDL [Mass/Vol] 49.8 mg/dL Normal [facility] Comment on above: Performed By: #### C MP, BNP, LIPID ####[facility] Azdudicvtb6013 [place] [address]Dr. Garima Pulliam Cholesterol.total/Cho lesterol in HDL [Mass ratio] 2.2 {ratio} Normal [facility] Comment on above: Performed By: #### C MP, BNP, LIPID ####[facility] Tryifcpxex[address]89 [place] [address]Dr. Garima Pulliam HDL NORMAL > or = 60 mg/dl - LOW CARDIOVASCULAR RISK <40 mg/dl - HIGH CARDIOVASCULAR RISK Normal [facility] Comment on above: Performed By: #### C MP, BNP, LIPID ####[facility] Qnprstfnri8192 [place] [address]Dr. Garima Pulliam LDL CALC NORMAL SEE BELOW Normal [facility] Comment on above: Result Comment: <100 mg/dl OPTIMAL 100 - 129 mg/dl NEAR OR ABOVE OPTIMAL 130 - 159 mg/dl BORDERLINE HIGH 160 - 189 mg/dl HIGH >190 mg/dl VERY HIGH Performed By: #### C MP, BNP, LIPID ####[facility] [address]ibzbzcdqn[address] [place] [address]Dr. Garima Pulliam Triglyceride [Mass/Vol] 61 mg/dL Normal <=150 [facility] Comment on above: Performed By: #### C MP, BNP, LIPID ####[facility] Drmmqitckd20[address] [place] [address]Dr. Garima Pulliam VLDL CALC 12.2 mg/dL Normal [facility] Comment on above: Performed By: #### C MP, BNP, LIPID ####[facility] Jivgfniccm25[address] [place] [address]Dr. Garima Pulliam PROF 14(COMP METB)on 023 Albumin [Mass/Vol] 3.5 g/dL Normal 3.4-5.0 [facility] Comment on above: Performed By: #### C MP, BNP, LIPID ####[facility] Oufvzqezxb[address] [place] [address]Dr. Garima Pulliam Albumin/Globulin [Mass ratio] 1.2 {ratio} Normal [facility] Comment on above: Performed By: #### C MP, BNP, LIPID ####[facility] Pcnqzhhvba7[address] [place] [address]Dr. Garima Pulliam ALP [Catalytic activity/Vol] 82 U/L Normal 46-116 [facility] Comment on above: Performed By: #### C MP, BNP, LIPID ####[facility] Euymzucupn[address] [place] [address]Dr. Garima Pulliam ALT [Catalytic activity/Vol] 33 U/L Normal 16-63 [facility] Comment on above: Performed By: #### C MP, BNP, LIPID ####[facility] Iarrflazvo49[address] [place] [address]Dr. Garima Pulliam Anion gap [Moles/Vol] 9.9 mmol/L Normal [facility] Comment on above: Performed By: #### C MP, BNP, LIPID ####[facility] Whcsiyahfu[address] [place] [address]Dr. Garima Pulliam AST [Catalytic activity/Vol] 24 U/L Normal 15-37 [facility] Comment on above: Performed By: #### C MP, BNP, LIPID ####[facility] Hznbzoitlk2464 [place] [address]Dr. Garima Pulliam Bilirubin [Mass/Vol] 0.6 mg/dL Normal 0.2-1.0 [facility] Comment on above: Performed By: #### C MP, BNP, LIPID ####[facility] Naavrkeaoa5[address] [place] [address]Dr. Garima Pulliam Calcium [Mass/Vol] 9.2 mg/dL Normal 8.5-10.1 [facility] Comment on above: Performed By: #### C MP, BNP, LIPID ####[facility] Xihtgzynut4248 [place] [address]Dr. Garima Pulliam Chloride [Moles/Vol] 106 mmol/L Normal 98-[address] [facility] Comment on above: Performed By: #### C MP, BNP, LIPID ####[facility] Wlupuzebxy4556 [place] [address]Dr. Garima Pulliam CO2 [Moles/Vol] 32.3 mmol/L Critically high 21.0-32.[address] [facility] Comment on above: Performed By: #### C MP, BNP, LIPID ####[facility] Qohaviukzy9012 [place] [address]Dr. Garima Pulliam Creatinine [Mass/Vol] 0.70 mg/dL Normal 0.70-1.30 [facility] Comment on above: Performed By: #### C MP, BNP, LIPID ####[facility] Cixdmnxkfl7257 [place] [id number]. Garima Pulliam EGFR-AF AUSTRIAN >60 Normal >=[address] [facility] Comment on above: Performed By: #### C MP, BNP, LIPID ####[facility] Czgwwlbuls6995 [place] [id number]. Garima Pulliam EGFR-NON AF AUSTRIAN >60 Normal >=60 [facility] Comment on above: Performed By: #### C MP, BNP, LIPID ####[facility] Luevgtkdzo3444 [place] [address]Dr. Garima Pulliam Globulin (S) [Mass/Vol] 2.9 g/dL Normal [facility] Comment on above: Performed By: #### C MP, BNP, LIPID ####[facility] Rzcvpknsnb5325 [place] [address]Dr. Garima Pulliam Glucose [Mass/Vol] 111 mg/dL Critically high 74-106 [facility] Comment on above: Performed By: #### C MP, BNP, LIPID ####[facility] Kwezoiugtx7487 [place] [address]Dr. Garima Pulliam Potassium [Moles/Vol] 4.2 mmol/L Normal 3.5-5.1 [facility] Comment on above: Performed By: #### C MP, BNP, LIPID ####[facility] Oezqibtrit9895 [place] [address]Dr. Garima Pulliam Protein [Mass/Vol] 6.4 g/dL Normal 6.4-8.2 [facility] Comment on above: Performed By: #### C MP, BNP, LIPID ####[facility] Eesfgnsbgu7894 [place] [address]Dr. Garima Pulliam Sodium [Moles/Vol] 144 mmol/L Normal 136-145 [facility] Comment on above: Performed By: #### C MP, BNP, LIPID ####[facility] Eyaauzszji0881 [place] [address]Dr. Garima Pulliam Urea nitrogen [Mass/Vol] 7.0 mg/dL Normal 7.0-18.[address] [facility] Comment on above: Performed By: #### C MP, BNP, LIPID ####[facility] Wqsgywxoif[address] [place], [place] [address]Dr. Garima Pulliam Urea nitrogen/Creatinine [Mass ratio] 10.0 mg/mg Normal [facility] Comment on above: Performed By: #### C MP, BNP, LIPID ####[facility] Slrtwtrrhn15[address] [place], [place] [address]Dr. Garima Pulliam BNPon 03-22-2023 Natriuretic peptide B (Bld) [Mass/Vol] 103.0 pg/mL Normal <=900.[address] [facility] Comment on above: Performed By: #### B TORPEDO MAN, BMP ####[facility] Cdxdzonqfl[address] [place], [place] [address]Dr. Garima Pulliam CBC AUTO DIFFon 03-22-2023 BASO # 0.0 103/ul Normal 0.0-0.[address] [facility] Comment on above: Performed By: #### C BC ####[facility] Kxdxdufmzo134[address] [place], [place] [address]Dr. Garima Heraclio Basophils/100 WBC (Bld) 0.3 % Normal 0.2-2.[address] [facility] Comment on above: Performed By: #### C BC ####[facility] Urmlpqzkpi385[address] [place], [place] [address]Dr. Garima Pulliam EO # 0.2 103/ul Normal 0.0-0.[address] [facility] Comment on above: Performed By: #### C BC ####[facility] Lriptjrpyv856[address] [place], [place] [address]Dr. Garima Pulliam Eosinophils/100 WBC (Bld) 2.2 % Normal 0.9-7.[address] [facility] Comment on above: Performed By: #### C BC ####[facility] Eqyytglbtx77[address] [place], [place] [address]Dr. Garima Pulliam Erythrocyte distribution width (RBC) [Ratio] 13.2 % Normal 11.0-15.[address] [facility] Comment on above: Performed By: #### C BC ####[facility] Dbscmznvqm6768 [place] [id number]. Garima Pulliam Hematocrit (Bld) [Volume fraction] 43.4 % Normal 42.0-54.[address] [facility] Comment on above: Performed By: #### C BC ####[facility] Tdwelimkcv4245 [place] [address]Dr. Garima Heraclio Hemoglobin (Bld) [Mass/Vol] 14.3 g/dL Normal 14.0-18.[address] [facility] Comment on above: Performed By: #### C BC ####[facility] Uvxrettedu8625 [place] [address]Dr. Garima Pulliam IG # 0.02 10e3/ul Normal 0.00-0.[address] [facility] Comment on above: Performed By: #### C BC ####[facility] Drumzdrmjl4783 [place] [address]Dr. Garima Pulliam IG % 0.3 % Normal 0.0-0.[address] [facility] Comment on above: Performed By: #### C BC ####[facility] Mhjvowfubz4740 [place] [address]Dr. Chapisrenu Pulliam LYMPH # 2.0 103/ul Normal 1.2-3.[address] [facility] Comment on above: Performed By: #### C BC ####[facility] Snejwnmkyu7007 [place] [address]Dr. Chapisrenu Pulliam Lymphocytes/100 WBC (Bld) 24.8 % Normal 20.5-60.[address] [facility] Comment on above: Performed By: #### C BC ####[facility] Vyhuwgqvnc0586 [place] [address]Dr. Chapisrenu Pulliam MANUAL DIFF REQ NO Normal [facility] Comment on above: Performed By: #### C BC ####[facility] Oechezinbb2612 [place] [address]Dr. Garima Heraclio MCH (RBC) [Entitic mass] 30.0 pg Normal 25.9-34.[address] [facility] Comment on above: Performed By: #### C BC ####[facility] Slrtkvrlfz[address] [place], [place] [address]Dr. Garima Pulliam MCHC (RBC) [Mass/Vol] 32.9 g/dL Normal 29.9-35.[address] [facility] Comment on above: Performed By: #### C BC ####[facility] Dylcpyfuyp3874 [place] [id number]. Garima Pulliam MCV (RBC) [Entitic vol] 91.0 fL Normal 80.0-94.[address] [facility] Comment on above: Performed By: #### C BC ####[facility] Vffrahkbfh1825 [place] [id number]. Garima Heraclio MONO # 0.8 103/ul Normal 0.3-0.[address] [facility] Comment on above: Performed By: #### C BC ####[facility] Vpqdeklenb3292 [place] [address]Dr. Chapisrenu Pulliam Monocytes/100 WBC (Bld) 9.7 % Normal 1.7-12.[address] [facility] Comment on above: Performed By: #### C BC ####[facility] Gcfclnpxkt9057 [place] [address]Dr. Garima Pulliam NEUT # 4.9 103/ul Normal 1.4-6.[address] [facility] Comment on above: Performed By: #### C BC ####[facility] Wkwelhvngh5399 [place] [id number]. Garima Heraclio Neutrophils/100 WBC (Bld) 62.7 % Normal 43.0-75.[address] [facility] Comment on above: Performed By: #### C BC ####[facility] Llrxdohgwn9030 [place] [id number]. Garima Heraclio Platelet mean volume (Bld) [Entitic vol] 8.8 fL Critically low 9.5-13.[address] [facility] Comment on above: Performed By: #### C BC ####[facility] Budftmutzv9305 [place] [id number]. Garima Heraclio PLT 198 103/ul Normal 150-[address] [facility] Comment on above: Performed By: #### C BC ####[facility] Rivigoqumx4070 [place] [id number]. Garima Heraclio RBC 4.77 106/ul Normal 4.70-6.[address] [facility] Comment on above: Performed By: #### C BC ####[facility] Wvdzydeonw6217 [place] [id number]. Garima Heraclio WBC 7.9 103/ul Normal 4.0-11.[address] [facility] Comment on above: Performed By: #### C BC ####[facility] Mkddwidylr8544 [place] [id number]. Garima Heraclio D-DIMERon 03-22-2023 D-DIMER 0.85 mg/L FEU Critically high <=0.59 [facility] Comment on above: Performed By: #### D DIM ####[facility] Cwnshoumat9330 [place] [address]Dr. Garima Pulliam D-DIMER COMMENTS SEE BELOW Normal [facility] [...] hospitalization. Performed By: #### D DIM ####[facility] Uldrgphcrc[address] [place], [place] [address]Dr. Garima Pulliam PROF CHEM 8 (BAS METB)on Anion gap [Moles/Vol] 6.9 mmol/L Normal [facility] Comment on above: Performed By: #### B TORPEDO MAN, BMP ####[facility] Cyazzizegh2604 [place] [address]Dr. Garima Pulliam Calcium [Mass/Vol] 8.9 mg/dL Normal 8.5-10.1 [facility] Comment on above: Performed By: #### B TORPEDO MAN, BMP ####[facility] Oaqcbeezvn0565 [place] [address]Dr. Garima Pulliam Chloride [Moles/Vol] 101 mmol/L Normal 98-107 [facility] Comment on above: Performed By: #### B TORPEDO MAN, BMP ####[facility] Olhkappjob[address] [place], [place] [address]Dr. Chapisrenu Heraclio CO2 [Moles/Vol] 30.7 mmol/L Normal 21.0-32.[address] [facility] Comment on above: Performed By: #### B TORPEDO MAN, BMP ####[facility] Mkesodhylx45[address] [place], [place] [address]Dr. Garima Pulliam Creatinine [Mass/Vol] 0.82 mg/dL Normal 0.70-1.30 [facility] Comment on above: Performed By: #### B TORPEDO MAN, BMP ####[facility] Krckqbxxgb513[address] [place], [place] [address]Dr. Garima Pulliam EGFR-AF AUSTRIAN >60 Normal >=[address] [facility] Comment on above: Performed By: #### B TORPEDO MAN, BMP ####[facility] Vzccmeousy[address] [place], [place] [address]Dr. Chapisrenu Heraclio EGFR-NON AF AUSTRIAN >60 Normal >=60 [facility] Comment on above: Performed By: #### B TORPEDO MAN, BMP ####[facility] Bbagcqsrvp74[address] [place], [place] [address]Dr. Garima Pulliam Glucose [Mass/Vol] 339 mg/dL Critically high 74-[address] [facility] Comment on above: Performed By: #### B TORPEDO MAN, BMP ####[facility] Ncumwvtktx9[address] [place], [place] [address]Dr. Garima Pulliam Potassium [Moles/Vol] 3.6 mmol/L Normal 3.5-5.1 [facility] Comment on above: Performed By: #### B TORPEDO MAN, BMP ####[facility] Wiivmmnkdq453[address] [place], [place] [address]Dr. Garima Pulliam Sodium [Moles/Vol] 135 mmol/L Critically low 136-145 Th [facility] Comment on above: Performed By: #### B TORPEDO MAN, BMP ####[facility] Szcqgslfhc[address] [place], [place] [address]Dr. Garima Pulliam Urea nitrogen [Mass/Vol] 11.0 mg/dL Normal 7.0-18.[address] [facility] Comment on above: Performed By: #### B TORPEDO MAN, BMP ####[facility] Zecllhnsnp46[address] [place], [place] [address]Dr. Garima Pulliam Urea nitrogen/Creatinine [Mass ratio] 13.4 mg/mg Normal [facility] Comment on above: Performed By: #### B TORPEDO MAN, BMP ####[facility] Xskirnapqt22[address] [place], [place] [address]Dr. Garima Pulliam US VERONICA DOP LEG BILon 023 US VERONICA DOP LEG BENOIT Normal [facility] BNPon 03-18-2023 Natriuretic peptide B (Bld) [Mass/Vol] 226.0 pg/mL Normal <=900.[address] [facility] Comment on above: Performed By: #### B TORPEDO MAN, BMP ####[facility] Tfqjrrddlg4[address] [place], [place] [address]Dr. Garima Pulliam CBC AUTO DIFFon 03-18-2023 BASO # 0.0 103/ul Normal 0.0-0.1 [facility] Comment on above: Performed By: #### C BC ####[facility] Qormajiucm76[address] [place], [place] [address]Dr. Garima Heraclio Basophils/100 WBC (Bld) 0.2 % Normal 0.2-2.[address] [facility] Comment on above: Performed By: #### C BC ####[facility] Zijaojacue[address] [place], [place] [address]Dr. Garima Pulliam EO # 0.3 103/ul Normal 0.0-0.[address] [facility] Comment on above: Performed By: #### C BC ####[facility] Jcstpvflre7[address] [place], [place] [address]Dr. Garima Heraclio Eosinophils/100 WBC (Bld) 2.5 % Normal 0.9-7.[address] [facility] Comment on above: Performed By: #### C BC ####[facility] Cmknhjlvye[address] [place], [place] [address]Dr. Garima Heraclio Erythrocyte distribution width (RBC) [Ratio] 13.2 % Normal 11.0-15.0 [facility] Comment on above: Performed By: #### C BC ####[facility] Oasbapbuei0827 [place] [address]DrAdalberto Pulliam Hematocrit (Bld) [Volume fraction] 45.8 % Normal 42.0-54.0 [facility] Comment on above: Performed By: #### C BC ####[facility] Nrgeevmigy5482 [place] [address]DrAdalberto Pulliam Hemoglobin (Bld) [Mass/Vol] 15.3 g/dL Normal 14.0-18.[address] [facility] Comment on above: Performed By: #### C BC ####[facility] Fzvuncfacv[address] [place], [place] [address]DrAdalberto Pulliam IG # 0.02 10e3/ul Normal 0.00-0.[address] [facility] Comment on above: Performed By: #### C BC ####[facility] Xqvthcczhv20[address] [place], [place] [address]DrAdalberto Pulliam IG % 0.2 % Normal 0.0-0.5 [facility] Comment on above: Performed By: #### C BC ####[facility] Lcgzueedgi11[address] [place], [place] [address]DrAdalberto Pulliam LYMPH # 1.8 103/ul Normal 1.2-3.[address] [facility] Comment on above: Performed By: #### C BC ####[facility] Fvscbwgspr2325[address] [place], [place] [address]DrAdalberto Pulliam Lymphocytes/100 WBC (Bld) 18.3 % Critically low 20.5-60.[address] [facility] Comment on above: Performed By: #### C BC ####[facility] Zndijndanp92[address] [place], [place] [address]DrAdalberto Pulliam MANUAL DIFF REQ NO Normal [facility] Comment on above: Performed By: #### C BC ####[facility] Ocwwntpzod2482 [place] [address]DrAdalberto Pulliam MCH (RBC) [Entitic mass] 30.5 pg Normal 25.9-34.0 [facility] Comment on above: Performed By: #### C BC ####[facility] Jybpehorbg6257 [place] [address]DrAdalberto Pulliam MCHC (RBC) [Mass/Vol] 33.4 g/dL Normal 29.9-35.[address] [facility] Comment on above: Performed By: #### C BC ####[facility] Imucrtfewn8943 [place] [address]DrAdalberto Pulliam MCV (RBC) [Entitic vol] 91.2 fL Normal 80.0-94.[address] [facility] Comment on above: Performed By: #### C BC ####[facility] Vxvxfteucv[address] [place], [place] [address]DrAdalberto Pulliam MONO # 0.8 103/ul Normal 0.3-0.[address] [facility] Comment on above: Performed By: #### C BC ####[facility] Vpgpvktuvf95[address] [place], [place] [address]DrAdalberto Pulliam Monocytes/100 WBC (Bld) 7.6 % Normal 1.7-12.[address] [facility] Comment on above: Performed By: #### C BC ####[facility] Fgszptnnhx06[address] [place], [place] [address]DrAdalberto Pulliam NEUT # 7.0 103/ul Critically high 1.4-6.5 [facility] Comment on above: Performed By: #### C BC ####[facility] Tenazdduoy4[address] [place], [place] [address]DrAdalberto Pulliam Neutrophils/100 WBC (Bld) 71.2 % Normal 43.0-75.[address] [facility] Comment on above: Performed By: #### C BC ####[facility] [address]ajqkxkcsm[address] [place], [place] [address]DrAdalberto Pulliam Platelet mean volume (Bld) [Entitic vol] 8.9 fL Critically low 9.5-13.[address] [facility] Comment on above: Performed By: #### C BC ####[facility] Zxrgbanmej12[address] [place], [place] [address]DrAdalberto Pulliam PLT 217 103/ul Normal 150-450 [facility] Comment on above: Performed By: #### C BC ####[facility] Pqvnmdivvm3906 [place] [address]Dr. Garima Heraclio RBC 5.02 106/ul Normal 4.70-6.10 [facility] Comment on above: Performed By: #### C BC ####[facility] Nxqihsrccl[address] [place], [place] [address]Dr. Garima Pulliam WBC 9.8 103/ul Normal 4.0-11.0 [facility] Comment on above: Performed By: #### C BC ####[facility] Sfleexcnty[address] [place], [place] [address]Dr. Garima Heraclio CRPon 03-18-2023 CRP 0.1 mg/dL Normal <=1.0 [facility] Comment on above: Performed By: #### C RP ####[facility] Ljzcfrtinl[address] [place], [place] [address]Dr. Garima Heraclio PROF CHEM 8 (BAS METB)on Anion gap [Moles/Vol] 10.4 mmol/L Normal [facility] Comment on above: Performed By: #### B TORPEDO MAN, BMP ####[facility] Rkkcbeizrh6[address] [place], [place] [address]Dr. Garima Heraclio Calcium [Mass/Vol] 8.8 mg/dL Normal 8.5-10.1 [facility] Comment on above: Performed By: #### B TORPEDO MAN, BMP ####[facility] Thithecldq[address] [place], [place] [address]Dr. Garima Heraclio Chloride [Moles/Vol] 97 mmol/L Critically low 98-107 [facility] Comment on above: Performed By: #### B TORPEDO MAN, BMP ####[facility] Ejuvsdvltf6[address] [place], [place] [address]Dr. Garima Pulliam CO2 [Moles/Vol] 31.2 mmol/L Normal 21.0-32.[address] [facility] Comment on above: Performed By: #### B TORPEDO MAN, BMP ####[facility] Lnwujjcnla[address] [place], [place] [address]Dr. Garima Pulliam Creatinine [Mass/Vol] 0.91 mg/dL Normal 0.70-1.30 [facility] Comment on above: Performed By: #### B TORPEDO MAN, BMP ####[facility] Cfkosyvyax1774 [place] [address]Dr. Garima Pulliam EGFR-AF AUSTRIAN >60 Normal >=[address] [facility] Comment on above: Performed By: #### B TORPEDO MAN, BMP ####[facility] Wlqdjbbofa8597 [place] [id number]. Garima Pulliam EGFR-NON AF AUSTRIAN >60 Normal >=60 [facility] Comment on above: Performed By: #### B TORPEDO MAN, BMP ####[facility] Ezhbtuydyu3461 [place] [address]Dr. Garima Pulliam Glucose [Mass/Vol] 315 mg/dL Critically high 74-[address] [facility] Comment on above: Performed By: #### B TORPEDO MAN, BMP ####[facility] Chtmnmlsja7005 [place] [address]Dr. Garima Pulliam Potassium [Moles/Vol] 3.6 mmol/L Normal 3.5-5.1 [facility] Comment on above: Performed By: #### B TORPEDO MAN, BMP ####[facility] Gylndmqvgm5748 [place] [address]Dr. Garima Pulliam Sodium [Moles/Vol] 135 mmol/L Critically low 136-145 Th [facility] Comment on above: Performed By: #### B TORPEDO MAN, BMP ####[facility] Mbxkhaayxz8511 [place] [address]Dr. Garima Pulliam Urea nitrogen [Mass/Vol] 7.0 mg/dL Normal 7.0-18.0 [facility] Comment on above: Performed By: #### B TORPEDO MAN, BMP ####[facility] Goojakgewd4481 [place] [address]Dr. Garima Pulliam Urea nitrogen/Creatinine [Mass ratio] 7.7 mg/mg Normal [facility] Comment on above: Performed By: #### B TORPEDO MAN, BMP ####[facility] Suzulfjccg7765 [place] [address]Dr. Garima Pulliam SED RATE WESTERGRENon 2022 SED RATE 8 mm/hr Normal <=[address] [facility] Comment on above: Performed By: #### S EDR ####[facility] [address]omefynhue[address] [place], [place] [address]Dr. Garima Pulliam BNPon 03-16-2023 Natriuretic peptide B (Bld) [Mass/Vol] 241.0 pg/mL Normal <=900.[address] [facility] Comment on above: Performed By: #### B TORPEDO MAN, BMP, HSTROPN ####[facility] Iccdtjpyrb[address] [place], [place] [address]Dr. Garima Heraclio CBC AUTO DIFFon 03-16-2023 BASO # 0.0 103/ul Normal 0.0-0.1 [facility] Comment on above: Performed By: #### C BC ####[facility] Uvwvcosvon[address] [place], [place] [address]Dr. Chapisrenu Pulliam Basophils/100 WBC (Bld) 0.2 % Normal 0.2-2.0 [facility] Comment on above: Performed By: #### C BC ####[facility] Vdmzmfqniy[address] [place], [place] [address]Dr. Garima Pulliam EO # 0.2 103/ul Normal 0.0-0.[address] [facility] Comment on above: Performed By: #### C BC ####[facility] Qiciojddxz[address] [place], [place] [address]Dr. Chapisrenu Pulliam Eosinophils/100 WBC (Bld) 2.7 % Normal 0.9-7.[address] [facility] Comment on above: Performed By: #### C BC ####[facility] Wmpavoaagn69[address] [place], [place] [address]Dr. Garima Pulliam Erythrocyte distribution width (RBC) [Ratio] 13.1 % Normal 11.0-15.[address] [facility] Comment on above: Performed By: #### C BC ####[facility] Hgfxozsjqi02[address] [place], [place] [address]Dr. Garima Pulliam Hematocrit (Bld) [Volume fraction] 41.8 % Critically low 42.0-54.0 [facility] Comment on above: Performed By: #### C BC ####[facility] Mqtcloulad8621 [place] [address]Dr. Garima Pulliam Hemoglobin (Bld) [Mass/Vol] 14.0 g/dL Normal 14.0-18.0 [facility] Comment on above: Performed By: #### C BC ####[facility] Oplezbbynu7762 [place] [address]Dr. Garima Pulliam IG # 0.03 10e3/ul Normal 0.00-0.03 [facility] Comment on above: Performed By: #### C BC ####[facility] Avysbswcsi8576 [place] [address]Dr. Garima Pulliam IG % 0.3 % Normal 0.0-0.5 [facility] Comment on above: Performed By: #### C BC ####[facility] K[address]zkknjkv[address] [place], [place] [address]Dr. Chapisrenu Pulliam LYMPH # 2.1 103/ul Normal 1.2-3.8 [facility] Comment on above: Performed By: #### C BC ####[facility] Osazmdewip[address] [place], [place] [address]Dr. Chapisrenu Pulliam Lymphocytes/100 WBC (Bld) 24.2 % Normal 20.5-60.0 [facility] Comment on above: Performed By: #### C BC ####[facility] Mnotixukjz6108 [place] [address]Dr. Garima Pulliam MANUAL DIFF REQ NO Normal [facility] Comment on above: Performed By: #### C BC ####[facility] Naorwechoy6276 [place] [address]Dr. Garima Pulliam MCH (RBC) [Entitic mass] 30.2 pg Normal 25.9-34.[address] [facility] Comment on above: Performed By: #### C BC ####[facility] Ixiutvfsao5623 [place] [address]Dr. Garima Pulliam MCHC (RBC) [Mass/Vol] 33.5 g/dL Normal 29.9-35.[address] [facility] Comment on above: Performed By: #### C BC ####[facility] Kwttrouuup4470 [place] [id number]. Garima Pulliam MCV (RBC) [Entitic vol] 90.1 fL Normal 80.0-94.[address] [facility] Comment on above: Performed By: #### C BC ####[facility] Llzkrnyfmr4699 [place] [id number]. Garima Pulliam MONO # 0.6 103/ul Normal 0.3-0.8 [facility] Comment on above: Performed By: #### C BC ####[facility] Rpnnupbite2332 [place] [address]Dr. Garima Heraclio Monocytes/100 WBC (Bld) 7.4 % Normal 1.7-12.0 [facility] Comment on above: Performed By: #### C BC ####[facility] F[address]wvkfpx[address] [place], [place] [address]Dr. Garima Pulliam NEUT # 5.6 103/ul Normal 1.4-6.5 [facility] Comment on above: Performed By: #### C BC ####[facility] K[address]dzw[address] [place], [place] [address]Dr. Garima Heraclio Neutrophils/100 WBC (Bld) 65.2 % Normal 43.0-75.[address] [facility] Comment on above: Performed By: #### C BC ####[facility] [address]safruwauc[address] [place] [id number]. Garima Heraclio Platelet mean volume (Bld) [Entitic vol] 8.7 fL Critically low 9.5-13.[address] [facility] Comment on above: Performed By: #### C BC ####[facility] K[address]es[address] [place], [place] [id number]. Garima Heraclio PLT 195 103/ul Normal 150-[address] [facility] Comment on above: Performed By: #### C BC ####[facility] Vneobsnhph[address] [place] [id number]. Garima Pulliam RBC 4.64 106/ul Critically low 4.70-6.10 [facility] Comment on above: Performed By: #### C BC ####[facility] [address]comlphv[address] [place] [address]Dr. Garima Pulliam WBC 8.6 103/ul Normal 4.0-11.[address] [facility] Comment on above: Performed By: #### C BC ####[facility] Jxtutltkxq9348 [place] [address]Dr. Garima Pulliam PROF CHEM 8 (BAS METB)on Anion gap [Moles/Vol] 6.7 mmol/L Normal [facility] Comment on above: Performed By: #### B TORPEDO MAN, BMP, HSTROPN ####[facility] [address]ynkhgwsvq[address] [place] [address]Dr. Garima Pulliam Calcium [Mass/Vol] 8.8 mg/dL Normal 8.5-10.1 [facility] [place] [facility] Comment on above: Performed By: #### B TORPEDO MAN, BMP, HSTROPN ####[facility] Bylyjxfzqn[address] [place], [place] [address]Dr. Garima Pulliam Chloride [Moles/Vol] 106 mmol/L Normal 98-[address] [facility] Comment on above: Performed By: #### B TORPEDO MAN, BMP, HSTROPN ####[facility] Nabnnyvelq[address] [place], [place] [address]Dr. Garima Pulliam CO2 [Moles/Vol] 31.4 mmol/L Normal 21.0-32.[address] [facility] Comment on above: Performed By: #### B TORPEDO MAN, BMP, HSTROPN ####[facility] F[address]ltghkir[address] [place], [place] [address]Dr. Garima Pulliam Creatinine [Mass/Vol] 0.75 mg/dL Normal 0.70-1.[address] [facility] Comment on above: Performed By: #### B TORPEDO MAN, BMP, HSTROPN ####[facility] Anbjslimgh[address] [place] [address]Dr. Garima Pulliam EGFR-AF AUSTRIAN >60 Normal >=[address] [facility] Comment on above: Performed By: #### B TORPEDO MAN, BMP, HSTROPN ####[facility] W[address]ievibqbd[address] [place] [address]Dr. Garima Pulliam EGFR-NON AF AUSTRIAN >60 Normal >=60 [facility] Comment on above: Performed By: #### B TORPEDO MAN, BMP, HSTROPN ####[facility] Jtruhjjfbr9573 [place] [address]Dr. Garima Pulliam Glucose [Mass/Vol] 161 mg/dL Critically high 74-[address] [facility] Comment on above: Performed By: #### B TORPEDO MAN, BMP, HSTROPN ####[facility] Snpmvixpvx8[address] [place] [address]Dr. Garima Pulliam Potassium [Moles/Vol] 4.1 mmol/L Normal 3.5-5.1 [facility] Comment on above: Performed By: #### B TORPEDO MAN, BMP, HSTROPN ####[facility] Pfjaeglaop6[address] [place] [address]Dr. Garima Pulliam Sodium [Moles/Vol] 140 mmol/L Normal 136-145 [facility] [place] [facility] Comment on above: Performed By: #### B TORPEDO MAN, BMP, HSTROPN ####[facility] Ssysuystrx8828 [place] [address]Dr. Garima Pulliam Urea nitrogen [Mass/Vol] 7.0 mg/dL Normal 7.0-18.0 [facility] Comment on above: Performed By: #### B TORPEDO MAN, BMP, HSTROPN ####[facility] Lcithplves[address] [place] [address]Dr. Garima Pulliam Urea nitrogen/Creatinine [Mass ratio] 9.3 mg/mg Normal [facility] Comment on above: Performed By: #### B TORPEDO MAN, BMP, HSTROPN ####[facility] Zqrfshjpaj3839 [place] [address]Dr. Garima Pulliam TROPONIN, HIGH SENSITIVITYon 03-16-2023 HSTROP 9.7 pg/mL Normal 4.0-76.1 [facility] Comment on above: Result Comment: CUT- OFF POINTS HAVE BEEN ESTABLISHED BASED ON THE FOURTH UNIVERSAL DEFINITIONS OF MYOCARDIALINFARCTION. THE UPPER REFERENCE LIMIT (URL) OF TROPONIN, DEFINED THE 99TH PERCENTILE OFcTnI DISTRIBUTION IN A REFERENCE POPULATION, HAS BEEN CONFIRMED THE DECISION THRESHOLDFOR OK DIAGNOSIS. Performed By: #### B TORPEDO MAN, BMP, HSTROPN ####[facility] Jisinwwdyl63[address] [place] [address]Dr. Garima Pulliam XR CHEST 1 Von 03-16-2023 XR CHEST [address] [facility] BNPon 03-06-2023 Natriuretic peptide B (Bld) [Mass/Vol] 111.0 pg/mL Normal <=900.[address] [facility] Comment on above: Performed By: #### C MP, BNP, CK ####[facility] Ogjahfialu3[address] [place] [address]Dr. Chapisrenu Pulliam CBC AUTO DIFFon 03-06-2023 BASO # 0.0 103/ul Normal 0.0-0.1 [facility] Comment on above: Performed By: #### C BC ####[facility] Rvmjitwx[address] [place], [place] [address]Dr. Garima Pulliam Basophils/100 WBC (Bld) 0.2 % Normal 0.2-2.[address] [facility] Comment on above: Performed By: #### C BC ####[facility] Abrnfohoqx[address] [place], [place] [address]Dr. Garima Pulliam EO # 0.3 103/ul Normal 0.0-0.[address] [facility] Comment on above: Performed By: #### C BC ####[facility] Oyxxlavyau[address] [place], [place] [address]Dr. Garima Pulliam Eosinophils/100 WBC (Bld) 3.5 % Normal 0.9-7.[address] [facility] Comment on above: Performed By: #### C BC ####[facility] Rhnaxahthe[address] [place], [place] [address]Dr. Garima Pulliam Erythrocyte distribution width (RBC) [Ratio] 13.3 % Normal 11.0-15.[address] [facility] Comment on above: Performed By: #### C BC ####[facility] Fsvvdvikgv8[address] [place], [place] [address]Dr. Garima Pulliam Hematocrit (Bld) [Volume fraction] 43.7 % Normal 42.0-54.0 [facility] Comment on above: Performed By: #### C BC ####[facility] Tndhjllyyo6[address] [place] [address]Dr. Garima Pulliam Hemoglobin (Bld) [Mass/Vol] 14.7 g/dL Normal 14.0-18.0 [facility] Comment on above: Performed By: #### C BC ####[facility] Jsxfpmeaut0864 [place] [address]Dr. Chapisrenu Heraclio IG # 0.03 10e3/ul Normal 0.00-0.03 [facility] Comment on above: Performed By: #### C BC ####[facility] Iwcykpbqff[address] [place], [place] [address]Dr. Garima Pulliam IG % 0.4 % Normal 0.0-0.5 [facility] Comment on above: Performed By: #### C BC ####[facility] Beovoxqxmv[address] [place], [place] [address]Dr. Garima Pulliam LYMPH # 2.0 103/ul Normal 1.2-3.8 [facility] Comment on above: Performed By: #### C BC ####[facility] Ynhniqeajf[address] [place], [place] [address]DrAdalberto Pulliam Lymphocytes/100 WBC (Bld) 23.7 % Normal 20.5-60.0 [facility] Comment on above: Performed By: #### C BC ####[facility] Wuirzihlgp20[address] [place] [address]Dr. Garima Pulliam MANUAL DIFF REQ NO Normal [facility] Comment on above: Performed By: #### C BC ####[facility] Vgjkhappmw1617 [place] [id number] Pulliam MCH (RBC) [Entitic mass] 30.1 pg Normal 25.9-34.0 [facility] Comment on above: Performed By: #### C BC ####[facility] Qgnbdnynns3065 [place] [id number]. Garima Pulliam MCHC (RBC) [Mass/Vol] 33.6 g/dL Normal 29.9-35.2 [facility] Comment on above: Performed By: #### C BC ####[facility] Zsoeilvvwt0376 [place] [address]Dr. Garima Heraclio MCV (RBC) [Entitic vol] 89.4 fL Normal 80.0-94.[address] [facility] Comment on above: Performed By: #### C BC ####[facility] Osylynefcl1251 [place] [address]Dr. Garima Pulliam MONO # 0.8 103/ul Normal 0.3-0.[address] [facility] Comment on above: Performed By: #### C BC ####[facility] Djvdzfowkw8086 [place] [address]Dr. Garima Pulliam Monocytes/100 WBC (Bld) 9.0 % Normal 1.7-12.[address] [facility] Comment on above: Performed By: #### C BC ####[facility] Ihqaqz[address] [place], [place] [address]Dr. Garima Pulliam NEUT # 5.4 103/ul Normal 1.4-6.[address] [facility] Comment on above: Performed By: #### C BC ####[facility] Niwydobojx[address] [place], [place] [address]Dr. Garima Pulliam Neutrophils/100 WBC (Bld) 63.2 % Normal 43.0-75.[address] [facility] Comment on above: Performed By: #### C BC ####[facility] Miuvtlutsc[address] [place], [place] [address]Dr. Garima Pulliam Platelet mean volume (Bld) [Entitic vol] 9.0 fL Critically low 9.5-13.[address] [facility] Comment on above: Performed By: #### C BC ####[facility] Ozoxuvacsd[address] [place], [place] [address]Dr. Garima Pulliam PLT 218 103/ul Normal 150-[address] [facility] Comment on above: Performed By: #### C BC ####[facility] Mmljupdfhz6192 [place] [id number]. Garima Pulliam RBC 4.89 106/ul Normal 4.70-6.[address] [facility] Comment on above: Performed By: #### C BC ####[facility] Jblcngrqso7035 [place] [address]Dr. Garima Pulliam WBC 8.5 103/ul Normal 4.0-11.0 [facility] Comment on above: Performed By: #### C BC ####[facility] Qaskbrluvs3451 [place] [address]Dr. Garima Pulliam CPKon 03-06-2023 CK [Catalytic activity/Vol] 191 U/L Normal 39-308 [facility] Comment on above: Performed By: #### C MP, BNP, CK ####[facility] Kzbpsujscl1595 [place] [address]Dr. Garima Pulliam PROF 14(COMP METB)on 023 Albumin [Mass/Vol] 3.6 g/dL Normal 3.4-5.0 [facility] [place] [facility] Comment on above: Performed By: #### C MP, BNP, CK ####[facility] Ufkddiysww1867 [place] [address]Dr. Garima Pulliam Albumin/Globulin [Mass ratio] 1.2 {ratio} Normal [facility] Comment on above: Performed By: #### C MP, BNP, CK ####[facility] Gajtqjzlnk2249 [place] [address]Dr. Garima Pulliam ALP [Catalytic activity/Vol] 91 U/L Normal 46-116 [facility] Comment on above: Performed By: #### C MP, BNP, CK ####[facility] Umvfwocwbh2821 [place] [address]Dr. Garima Pulliam ALT [Catalytic activity/Vol] 33 U/L Normal 16-63 [facility] Comment on above: Performed By: #### C MP, BNP, CK ####[facility] Dhyntybelx5704 [place] [address]Dr. Garima Pulliam Anion gap [Moles/Vol] 10.3 mmol/L Normal [facility] Comment on above: Performed By: #### C MP, BNP, CK ####[facility] Cqgbagsalb1696 [place] [address]Dr. Garima Pulliam AST [Catalytic activity/Vol] 17 U/L Normal 15-[address] [facility] Comment on above: Performed By: #### C MP, BNP, CK ####[facility] Hsvqgkfjwz5066 [place] [address]Dr. Garima Pulliam Bilirubin [Mass/Vol] 0.4 mg/dL Normal 0.2-1.0 [facility] Comment on above: Performed By: #### C MP, BNP, CK ####[facility] Ohkkgwkinh6187 [place] [address]Dr. Garima Pulliam Calcium [Mass/Vol] 9.1 mg/dL Normal 8.5-10.1 [facility] Comment on above: Performed By: #### C MP, BNP, CK ####[facility] Pmsgxzzbyi5241 [place] [address]Dr. Garima Pulliam Chloride [Moles/Vol] 102 mmol/L Normal 98-[address] [facility] Comment on above: Performed By: #### C MP, BNP, CK ####[facility] Ooboyskold1636 [place] [address]Dr. Garima Pulliam CO2 [Moles/Vol] 29.7 mmol/L Normal 21.0-32.[address] [facility] Comment on above: Performed By: #### C MP, BNP, CK ####[facility] Gmsvaxdjmy2497 [place] [address]Dr. Garima Pulliam Creatinine [Mass/Vol] 0.79 mg/dL Normal 0.70-1.[address] [facility] Comment on above: Performed By: #### C MP, BNP, CK ####[facility] Ltinotiuht4067 [place] [address]Dr. Garima Pulliam EGFR-AF AUSTRIAN >60 Normal >=[address] [facility] Comment on above: Performed By: #### C MP, BNP, CK ####[facility] Ofwyhhzncv9819 [place] [address]Dr. Garima Pulliam EGFR-NON AF AUSTRIAN >60 Normal >=[address] [facility] Comment on above: Performed By: #### C MP, BNP, CK ####[facility] Dcmrcexmya7633 [place] [address]Dr. Garima Pulliam Globulin (S) [Mass/Vol] 3.0 g/dL Normal [facility] Comment on above: Performed By: #### C MP, BNP, CK ####[facility] Kymjeanvpz7741 [place] [address]Dr. Garima Pulliam Glucose [Mass/Vol] 202 mg/dL Critically high 74-106 [facility] Comment on above: Performed By: #### C MP, BNP, CK ####[facility] Smmfbqvtpt0001 [place] [address]Dr. Garima Pulliam Potassium [Moles/Vol] 4.0 mmol/L Normal 3.5-5.1 [facility] Comment on above: Performed By: #### C MP, BNP, CK ####[facility] Eolhficdbh5434 [place] [address]Dr. Garima Pulliam Protein [Mass/Vol] 6.6 g/dL Normal 6.4-8.2 [facility] Comment on above: Performed By: #### C MP, BNP, CK ####[facility] Xazuqgxlhc[address] [place], [place] [address]Dr. Garima Pulliam Sodium [Moles/Vol] 138 mmol/L Normal 136-145 [facility] [place] [facility] Comment on above: Performed By: #### C MP, BNP, CK ####[facility] Jphidvkcpr[address] [place], [place] [address]Dr. Garima Pulliam Urea nitrogen [Mass/Vol] 10.0 mg/dL Normal 7.0-18.0 [facility] Comment on above: Performed By: #### C MP, BNP, CK ####[facility] Cklpjaolww1846 [place] [address]Dr. Garima Pulliam Urea nitrogen/Creatinine [Mass ratio] 12.7 mg/mg Normal [facility] Comment on above: Performed By: #### C MP, BNP, CK ####[facility] Qdbqtybiuw8623 [place] [address]Dr. Garima Pulliam US VERONICA DOP LEG BILon 023 US VERONICA DOP LEG EBNOIT Normal [facility] CBC AUTO DIFFon 01-13-2023 BASO # 0.0 103/ul Normal 0.0-0.[address] [facility] Comment on above: Performed By: #### C BC ####[facility] Qnzesvugng8263 [place] [id number]. Chapisrenu Pulliam Basophils/100 WBC (Bld) 0.0 % Critically low 0.2-2.[address] [facility] Comment on above: Performed By: #### C BC ####[facility] Lhwqceltkh0013 [place] [address]Dr. Garima Pulliam EO # 0.0 103/ul Normal 0.0-0.[address] [facility] Comment on above: Performed By: #### C BC ####[facility] Ceqlrucgya[address] [place], [place] [address]Dr. Garima Pulliam Eosinophils/100 WBC (Bld) 0.0 % Critically low 0.9-7.[address] [facility] Comment on above: Performed By: #### C BC ####[facility] Cttyvahyuu4519 [place] [address]Dr. Garima Pulliam Erythrocyte distribution width (RBC) [Ratio] 13.2 % Normal 11.0-15.0 [facility] Comment on above: Performed By: #### C BC ####[facility] Irwmcemlrm[address] [place], [place] [address]Dr. Garima Pulliam Hematocrit (Bld) [Volume fraction] 46.7 % Normal 42.0-54.[address] [facility] Comment on above: Performed By: #### C BC ####[facility] [address]dtuolnbxq[address] [place], [place] [address]Dr. Garima Pulliam Hemoglobin (Bld) [Mass/Vol] 15.6 g/dL Normal 14.0-18.[address] [facility] Comment on above: Performed By: #### C BC ####[facility] Wqipwugrmg6[address] [place], [place] [address]Dr. Garima Pulliam IG # 0.01 10e3/ul Normal 0.00-0.[address] [facility] Comment on above: Performed By: #### C BC ####[facility] Hubelqrswl4095 [place] [id number]. Garima Pulliam IG % 0.2 % Normal 0.0-0.5 [facility] Comment on above: Performed By: #### C BC ####[facility] Nlyvfqcyyr9953 [place] [id number]. Garima Pulliam LYMPH # 0.8 103/ul Critically low 1.2-3.8 [facility] Comment on above: Performed By: #### C BC ####[facility] Svjxirjbed3019 [place] [id number]. Garima Pulliam Lymphocytes/100 WBC (Bld) 12.7 % Critically low 20.5-60.0 [facility] Comment on above: Performed By: #### C BC ####[facility] Ularbvamrm3552 [place] [address]Dr. Garima Pulliam MANUAL DIFF REQ NO Normal [facility] Comment on above: Performed By: #### C BC ####[facility] Hrhfqgyunh7965 [place] [id number]. Garima Pulliam MCH (RBC) [Entitic mass] 30.2 pg Normal 25.9-34.0 [facility] Comment on above: Performed By: #### C BC ####[facility] Vmenmvossa8486 [place] [id number]. Garima Pulliam MCHC (RBC) [Mass/Vol] 33.4 g/dL Normal 29.9-35.[address] [facility] Comment on above: Performed By: #### C BC ####[facility] Nbmnstktfn6727 [place] [phone]. Garima Pulliam MCV (RBC) [Entitic vol] 90.3 fL Normal 80.0-94.[address] [facility] Comment on above: Performed By: #### C BC ####[facility] Tvarusuvtk0776 [place] [address]Dr. Garima Heraclio MONO # 0.1 103/ul Critically low 0.3-0.8 [facility] Comment on above: Performed By: #### C BC ####[facility] Ruifuymnmg5176 [place] [id number]. Garima Pulliam Monocytes/100 WBC (Bld) 0.9 % Critically low 1.7-12.0 [facility] Comment on above: Performed By: #### C BC ####[facility] Nbqvhzghcd5749 [place] [id number]. Garima Pulliam NEUT # 5.6 103/ul Normal 1.4-6.[address] [facility] Comment on above: Performed By: #### C BC ####[facility] Ixfyrffusd5471 [place] [id number]. Garima Pulliam Neutrophils/100 WBC (Bld) 86.2 % Critically high 43.0-75.0 [facility] Comment on above: Performed By: #### C BC ####[facility] Zdanmozpst4073 [place] [address]Dr. Garima Pulliam Platelet mean volume (Bld) [Entitic vol] 9.1 fL Critically low 9.5-13.5 [facility] Comment on above: Performed By: #### C BC ####[facility] Qslrgoqihu[address] [place], [place] [address]Dr. Garima Pulliam PLT 169 103/ul Normal 150-[address] [facility] Comment on above: Performed By: #### C BC ####[facility] Oqshqojenm[address] [place], [place] [address]Dr. Garima Pulliam RBC 5.17 106/ul Normal 4.70-6.[address] [facility] Comment on above: Performed By: #### C BC ####[facility] Wgdindxnhj[address] [place], [place] [address]Dr. Garima Pulliam WBC 6.5 103/ul Normal 4.0-11.[address] [facility] Comment on above: Performed By: #### C BC ####[facility] Lxtbcrdaon[address] [place], [place] [address]Dr. Garima Pulliam D-DIMERon 01-13-2023 D-DIMER 0.41 mg/L FEU Normal <=0.59 [facility] Comment on above: Performed By: #### D DIM ####[facility] Qgsuqereiy7629 [place] [address]Dr. Garima Pulliam D-DIMER COMMENTS SEE BELOW Normal [facility] Comment on above: Result Comment: Incr [...] hospitalization. Performed By: #### D DIM ####[facility] Laxtztwafy[address] [place], [place] [address]Dr. Garima Pulliam PROF 14(COMP METB)on 023 Albumin [Mass/Vol] 3.4 g/dL Normal 3.4-5.0 [facility] Comment on above: Performed By: #### C MP ####[facility] Xkslapoaza[address] [place], [place] [address]Dr. Garima Pulliam Albumin/Globulin [Mass ratio] 1.3 {ratio} Normal [facility] Comment on above: Performed By: #### C MP ####[facility] Ygvepcqtmp[address] [place], [place] [address]Dr. Garima Pulliam ALP [Catalytic activity/Vol] 83 U/L Normal 46-116 [facility] Comment on above: Performed By: #### C MP ####[facility] Ibhzwaamhb9[address] [place], [place] [address]Dr. Garima Pulliam ALT [Catalytic activity/Vol] 25 U/L Normal 16-63 [facility] Comment on above: Performed By: #### C MP ####[facility] Ikmnkcjyeu5930 [place] [address]Dr. Garima Pulliam Anion gap [Moles/Vol] 14.5 mmol/L Normal [facility] Comment on above: Performed By: #### C MP ####[facility] Yptqjaaxfw[address] [place], [place] [address]Dr. Garima Pulliam AST [Catalytic activity/Vol] 19 U/L Normal 15-37 [facility] Comment on above: Performed By: #### C MP ####[facility] Rvfjtzxtvp[address] [place], [place] [address]Dr. Garima Pulliam Bilirubin [Mass/Vol] 0.4 mg/dL Normal 0.2-1.0 [facility] Comment on above: Performed By: #### C MP ####[facility] Lynweomrvj[address] [place], [place] [address]Dr. Garima Pulliam Calcium [Mass/Vol] 8.7 mg/dL Normal 8.5-10.1 [facility] Comment on above: Performed By: #### C MP ####[facility] Dnxfnfiece259[address] [place], [place] [address]Dr. Garima Pulliam Chloride [Moles/Vol] 104 mmol/L Normal 98-107 [facility] Comment on above: Performed By: #### C MP ####[facility] Oqyoklchxs[address] [place], [place] [address]Dr. Garima Pulliam CO2 [Moles/Vol] 24.5 mmol/L Normal 21.0-32.[address] [facility] Comment on above: Performed By: #### C MP ####[facility] Yjmgmrwkcw[address] [place], [place] [address]Dr. Garima Pulliam Creatinine [Mass/Vol] 0.70 mg/dL Normal 0.70-1.30 [facility] Comment on above: Performed By: #### C MP ####[facility] Epehrgbuck[address] [place], [place] [address]Dr. Garima Heraclio EGFR-AF AUSTRIAN >60 Normal >=[address] [facility] Comment on above: Performed By: #### C MP ####[facility] Xndinzdgqj[address] [place], [place] [address]Dr. Chapisrenu Heraclio EGFR-NON AF AUSTRIAN >60 Normal >=60 [facility] Comment on above: Performed By: #### C MP ####[facility] Fqlckokpok[address] [place], [place] [address]Dr. Chapisrenu Pulliam Globulin (S) [Mass/Vol] 2.6 g/dL Normal [facility] Comment on above: Performed By: #### C MP ####[facility] Lqyiyhxltg5579 [place] [address]Dr. Garima Pulliam Glucose [Mass/Vol] 196 mg/dL Critically high 74-106 [facility] Comment on above: Performed By: #### C MP ####[facility] Tsocbjkzda8831 [place] [address]Dr. Garima Pulliam Potassium [Moles/Vol] 4.0 mmol/L Normal 3.5-5.1 [facility] Comment on above: Performed By: #### C MP ####[facility] Vmmtelxsih5214 [place] [address]Dr. Garima Pulliam Protein [Mass/Vol] 6.0 g/dL Critically low 6.4-8.2 [facility] Comment on above: Performed By: #### C MP ####[facility] [address]kflmofz[address] [place], [place] [address]Dr. Garima Pulliam Sodium [Moles/Vol] 139 mmol/L Normal 136-145 [facility] Comment on above: Performed By: #### C MP ####[facility] Wjflufcfod[address] [place], [place] [address]Dr. Garima Pulliam Urea nitrogen [Mass/Vol] 7.0 mg/dL Normal 7.0-18.0 [facility] Comment on above: Performed By: #### C MP ####[facility] [address]gfdpezql4[address] [place], [place] [address]Dr. Garima Heraclio Urea nitrogen/Creatinine [Mass ratio] 10.0 mg/mg Normal [facility] Comment on above: Performed By: #### C MP ####[facility] [address]djbskooss[address] [place], [place] [address]Dr. Garima Heraclio BNPon 01-12-2023 Natriuretic peptide B (Bld) [Mass/Vol] 141.0 pg/mL Normal <=900.0 [facility] Comment on above: Performed By: #### C MP, BNP, HSTROPN ####[facility] Ukifwzwxjv[address] [place], [place] [address]Dr. Garima Heraclio CBC AUTO DIFFon 01-12-2023 BASO # 0.0 103/ul Normal 0.0-0.[address] [facility] Comment on above: Performed By: #### C BC ####[facility] Gsnrmjzwvc3073 [place] [id number]. Garima Heraclio Basophils/100 WBC (Bld) 0.2 % Normal 0.2-2.[address] [facility] Comment on above: Performed By: #### C BC ####[facility] Fqijlbkidc5970 [place] [address]Dr. Garima Heraclio EO # 0.2 103/ul Normal 0.0-0.[address] [facility] Comment on above: Performed By: #### C BC ####[facility] Ezezlftlus8756 [place] [address]Dr. Garima Heraclio Eosinophils/100 WBC (Bld) 2.7 % Normal 0.9-7.[address] [facility] Comment on above: Performed By: #### C BC ####[facility] Ogiukhybuz[address] [place], [place] [address]Dr. Garima Pulliam Erythrocyte distribution width (RBC) [Ratio] 13.3 % Normal 11.0-15.[address] [facility] Comment on above: Performed By: #### C BC ####[facility] Yopbarcxmd65[address] [place], [place] [address]Dr. Garima Pulliam Hematocrit (Bld) [Volume fraction] 42.3 % Normal 42.0-54.[address] [facility] Comment on above: Performed By: #### C BC ####[facility] Nyaszmbwni[address] [place], [place] [address]Dr. Garima Pulliam Hemoglobin (Bld) [Mass/Vol] 14.3 g/dL Normal 14.0-18.[address] [facility] Comment on above: Performed By: #### C BC ####[facility] Evxbzplyvo[address] [place], [place] [address]Dr. Garima Pulliam IG # 0.02 10e3/ul Normal 0.00-0.[address] [facility] Comment on above: Performed By: #### C BC ####[facility] Qksfmxsbhm17[address] [place] [id number]. Garima Pulliam IG % 0.2 % Normal 0.0-0.[address] [facility] Comment on above: Performed By: #### C BC ####[facility] Gfkxavrfec23[address] [place] [id number]. Garima Pulliam LYMPH # 2.6 103/ul Normal 1.2-3.[address] [facility] Comment on above: Performed By: #### C BC ####[facility] Sufpkblxfx7626 [place] [id number]. Garima Heraclio Lymphocytes/100 WBC (Bld) 29.6 % Normal 20.5-60.[address] [facility] Comment on above: Performed By: #### C BC ####[facility] Oegoyqjrll[address] [place] [address]Dr. Garima Heraclio MANUAL DIFF REQ NO Normal [facility] Comment on above: Performed By: #### C BC ####[facility] Bjwanlglkk30[address] [place] [id number]. Garima Pulliam MCH (RBC) [Entitic mass] 30.2 pg Normal 25.9-34.[address] [facility] Comment on above: Performed By: #### C BC ####[facility] Osdqzheguy[address] [place] [address]Dr. Garima Pulliam MCHC (RBC) [Mass/Vol] 33.8 g/dL Normal 29.9-35.[address] [facility] Comment on above: Performed By: #### C BC ####[facility] Qqfankvzlz5699 [place] [id number]. Garima Pulliam MCV (RBC) [Entitic vol] 89.2 fL Normal 80.0-94.[address] [facility] Comment on above: Performed By: #### C BC ####[facility] Cclkqbwmiq[address] [place], [place] [address]Dr. Chapisrenu uPlliam MONO # 0.7 103/ul Normal 0.3-0.[address] [facility] Comment on above: Performed By: #### C BC ####[facility] Vamwpholcd75[address] [place] [id number]. Garima Pulliam Monocytes/100 WBC (Bld) 8.3 % Normal 1.7-12.[address] [facility] Comment on above: Performed By: #### C BC ####[facility] Xevnzwmjha9078 [place] [id number]. Garima Pulliam NEUT # 5.1 103/ul Normal 1.4-6.[address] [facility] Comment on above: Performed By: #### C BC ####[facility] Hhpaxntroh3513 [place] [id number]. Garima Pulliam Neutrophils/100 WBC (Bld) 59.0 % Normal 43.0-75.[address] [facility] Comment on above: Performed By: #### C BC ####[facility] Aofasjahez39[address] [place] [address]Dr. Garima Pulliam Platelet mean volume (Bld) [Entitic vol] 8.7 fL Critically low 9.5-13.[address] [facility] Comment on above: Performed By: #### C BC ####[facility] Izfckyjdxf4036 [place] [address]Dr. Garima Pulliam PLT 182 103/ul Normal 150-[address] [facility] Comment on above: Performed By: #### C BC ####[facility] Dynxtppkgc7221 [place] [id number]. Garima Pulliam RBC 4.74 106/ul Normal 4.70-6.[address] [facility] Comment on above: Performed By: #### C BC ####[facility] [address]df[address] [place], [place] [id number]. Garima Pulliam WBC 8.7 103/ul Normal 4.0-11.[address] [facility] Comment on above: Performed By: #### C BC ####[facility] Eupllugoiw[address] [place], [place] [address]Dr. Garima Pulliam Covid-19 PCR (CVDTB)on 12-25 SARS-CoV-2 (COVID-19) RNA MARIE+probe Ql (Unsp spec) Not detected Normal NOT DETECTED [facility] Comment on above: Result Comment: When [...] for this test is supported by the [place] of Health and Human Service's declaration that [...] used). Performed By: #### C VDTBH ####[facility] Dpxwcenvox6[address] [place] [address]Dr. Garima Pulliam PROF 14(COMP METB)on 023 Albumin [Mass/Vol] 3.6 g/dL Normal 3.4-5.0 [facility] [place] [facility] Comment on above: Performed By: #### C MP, BNP, HSTROPN ####[facility] Swzmojhbbg4[address] [place] [address]Dr. Garima Pulliam Albumin/Globulin [Mass ratio] 1.5 {ratio} Normal [facility] Comment on above: Performed By: #### C MP, BNP, HSTROPN ####[facility] Xzldxmymid26[address] [place] [address]Dr. Garima Pulliam ALP [Catalytic activity/Vol] 79 U/L Normal 46-[address] [facility] Comment on above: Performed By: #### C MP, BNP, HSTROPN ####[facility] Tybrnetbmc[address] [place] [address]Dr. Garima Pulliam ALT [Catalytic activity/Vol] 27 U/L Normal 16-63 [facility] Comment on above: Performed By: #### C MP, BNP, HSTROPN ####[facility] Poogqpnlyf7[address] [place] [address]Dr. Garima Pulliam Anion gap [Moles/Vol] 11.7 mmol/L Normal Th [facility] [place] [facility] Comment on above: Performed By: #### C MP, BNP, HSTROPN ####[facility] Qadgopwyww46[address] [place] [address]Dr. Garima Pulliam AST [Catalytic activity/Vol] 21 U/L Normal 15-37 [facility] Comment on above: Performed By: #### C MP, BNP, HSTROPN ####[facility] Jjxstepkie3780 [place] [address]Dr. Garima Pulliam Bilirubin [Mass/Vol] 0.3 mg/dL Normal 0.2-1.0 [facility] Comment on above: Performed By: #### C MP, BNP, HSTROPN ####[facility] Cisdruvupg0315 [place] [address]Dr. Garima Pulliam Calcium [Mass/Vol] 8.9 mg/dL Normal 8.5-10.1 [facility] Comment on above: Performed By: #### C MP, BNP, HSTROPN ####[facility] Lfrfoawwtq9841 [place] [address]Dr. Garima Pulliam Chloride [Moles/Vol] 107 mmol/L Normal 98-107 [facility] Comment on above: Performed By: #### C MP, BNP, HSTROPN ####[facility] Bxnjomedmj5976 [place] [address]Dr. Garima Pulliam CO2 [Moles/Vol] 26.0 mmol/L Normal 21.0-32.[address] [facility] Comment on above: Performed By: #### C MP, BNP, HSTROPN ####[facility] Xoyldnwfoq5132 [place] [address]Dr. Garima Pulliam Creatinine [Mass/Vol] 0.65 mg/dL Critically low 0.70-1.30 [facility] Comment on above: Performed By: #### C MP, BNP, HSTROPN ####[facility] Dghqdhszjj5110 [place] [address]Dr. Yilan Pulliam EGFR-AF AUSTRIAN >60 Normal >=[address] [facility] Comment on above: Performed By: #### C MP, BNP, HSTROPN ####[facility] Njiywalwfb33[address] [place] [address]Dr. Garima Pulliam EGFR-NON AF AUSTRIAN >60 Normal >=60 [facility] Comment on above: Performed By: #### C MP, BNP, HSTROPN ####[facility] Smifbgqdwo7[address] [place] [address]Dr. Garima Pulliam Globulin (S) [Mass/Vol] 2.4 g/dL Normal [facility] Comment on above: Performed By: #### C MP, BNP, HSTROPN ####[facility] [address]pszltawd[address] [place], [place] [address]Dr. Garima Pulliam Glucose [Mass/Vol] 85 mg/dL Normal 74-106 [facility] [place] [facility] Comment on above: Performed By: #### C MP, BNP, HSTROPN ####[facility] Zrrikduxie2302 [place] [address]Dr. Garima Pulliam Potassium [Moles/Vol] 3.7 mmol/L Normal 3.5-5.1 [facility] Comment on above: Performed By: #### C MP, BNP, HSTROPN ####[facility] Eqbvgbknmz3025 [place] [address]Dr. Garima Pulliam Protein [Mass/Vol] 6.0 g/dL Critically low 6.4-8.2 [facility] Comment on above: Performed By: #### C MP, BNP, HSTROPN ####[facility] Skbtjqmgnu0082 [place] [address]Dr. Garima Pulliam Sodium [Moles/Vol] 141 mmol/L Normal 136-145 [facility] Comment on above: Performed By: #### C MP, BNP, HSTROPN ####[facility] Fmkqeroemx6440 [place] [address]Dr. Garima Pulliam Urea nitrogen [Mass/Vol] 5.0 mg/dL Critically low 7.0-18.0 [facility] Comment on above: Performed By: #### C MP, BNP, HSTROPN ####[facility] Jueomakznf5[address] [place] [address]Dr. Garima Pulliam Urea nitrogen/Creatinine [Mass ratio] 7.7 mg/mg Normal [facility] Comment on above: Performed By: #### C MP, BNP, HSTROPN ####[facility] Qghxcmuety3360 [place] [address]Dr. Garima Pulliam PROTIMEon 01-12-2023 INR Coag (PPP) [Relative time] 1.16 {INR} Normal [facility] Comment on above: Performed By: #### P TT, PT ####[facility] Firvunohgq54[address] [place] [address]Dr. Garima Pulliam INR GUIDELINES SEE BELOW Normal The [facility] Comment on above: Result Comment: WESLEY RED INR: 2.0 - 3.0 CONDITIONS NOT LISTED BELOW 2.5 - 3.5 FOR PROSTHETIC HEART VALVE REPLACEMENT 2.5 - 3.5 RECURRENT THROMBOSIS Performed By: #### P TT, PT ####[facility] Unrlobanhc[address] [place], [place] [address]Dr. Garima Pulliam PT Coag (PPP) [Time] 12.2 s Critically high 9.0-11.[address] [facility] Comment on above: Performed By: #### P TT, PT ####[facility] Mduibmyazc0381 [place] [address]Dr. Garima Pulliam PTTon 01-12-2023 aPTT Coag (Bld) [Time] 29.1 s Normal 22.3-36.[address] [facility] Comment on above: Performed By: #### P TT, PT ####[facility] Rbefearq[address] [place], [place] [address]Dr. Garima Pulliam TROPONIN, HIGH SENSITIVITYon 01-12-2023 HSTROP 10.3 pg/mL Normal 4.0-76.[address] [facility] Comment on above: Result Comment: CUT- OFF POINTS HAVE BEEN ESTABLISHED BASED ON THE FOURTH UNIVERSAL DEFINITIONS OF MYOCARDIALINFARCTION. THE UPPER REFERENCE LIMIT (URL) OF TROPONIN, DEFINED THE 99TH PERCENTILE OFcTnI DISTRIBUTION IN A REFERENCE POPULATION, HAS BEEN CONFIRMED THE DECISION THRESHOLDFOR OK DIAGNOSIS. Performed By: #### H STROPN ####[facility] Titgzadjce2427 [place] [address]Dr. Garima Pulliam HSTROP 9.2 pg/mL Normal 4.0-76.1 [facility] Comment on above: Result Comment: CUT- OFF POINTS HAVE BEEN ESTABLISHED BASED ON THE FOURTH UNIVERSAL DEFINITIONS OF MYOCARDIALINFARCTION. THE UPPER REFERENCE LIMIT (URL) OF TROPONIN, DEFINED THE 99TH PERCENTILE OFcTnI DISTRIBUTION IN A REFERENCE POPULATION, HAS BEEN CONFIRMED THE DECISION THRESHOLDFOR OK DIAGNOSIS. Performed By: #### C MP, BNP, HSTROPN ####[facility] Qgmqjkuhqz5784 [place] [address]Dr. Garima Pulliam XR CHEST 1 Von 01-12-2023 XR CHEST 1 V Normal [facility] XR CHEST 1 Von 01-01-2023 XR CHEST [address] [facility] CARDIAC NASH 3-6on 3 CK [Catalytic activity/Vol] 196 U/L Normal 39-308 [facility] Comment on above: Performed By: #### C MREP ####[facility] Farefiqkwd8119 [place] [address]Dr. Garima Pulliam CK.MB [Mass/Vol] 7.41 ng/mL Critically high <=3.60 [facility] Comment on above: Performed By: #### C MREP ####[facility] Stvnyhufyi2919 [place] [address]Dr. Garima Pulliam HSTROP 10.3 pg/mL Normal 4.0-76.[address] [facility] Comment on above: Result Comment: CUT- OFF POINTS HAVE BEEN ESTABLISHED BASED ON THE FOURTH UNIVERSAL DEFINITIONS OF MYOCARDIALINFARCTION. THE UPPER REFERENCE LIMIT (URL) OF TROPONIN, DEFINED THE 99TH PERCENTILE OFcTnI DISTRIBUTION IN A REFERENCE POPULATION, HAS BEEN CONFIRMED THE DECISION THRESHOLDFOR OK DIAGNOSIS. Performed By: #### C MREP ####[facility] Dndytlkxte2510 [place] [id number]. Garima Pulliam XR CHEST 1 Von 12-26-2022 XR CHEST 1 V Normal [facility] BNPon 12-25-2022 Natriuretic peptide B (Bld) [Mass/Vol] 98.0 pg/mL Normal <=900.[address] [facility] Comment on above: Performed By: #### B MARVIN FRENCH CMADM ####[facility] Jyleesmzft2515 [place] [address]Dr. Garima Pulliam CARDIAC NASH ADMITon 023 CK [Catalytic activity/Vol] 208 U/L Normal 39-[address] [facility] Comment on above: Performed By: #### B MARVIN FRENCH CMADM ####[facility] Mapbfdyzie3901 [place] [address]Dr. Garima Pulliam CK.MB [Mass/Vol] 7.63 ng/mL Critically high <=3.[address] [facility] Comment on above: Performed By: #### B MARVIN FRENCH CMADM ####[facility] Dsqdbjcekm[address] [place], [place] [address]Dr. Garima Pulliam HSTROP 8.8 pg/mL Normal 4.0-76.[address] [facility] Comment on above: Result Comment: CUT- OFF POINTS HAVE BEEN ESTABLISHED BASED ON THE FOURTH UNIVERSAL DEFINITIONS OF MYOCARDIALINFARCTION. THE UPPER REFERENCE LIMIT (URL) OF TROPONIN, DEFINED THE 99TH PERCENTILE OFcTnI DISTRIBUTION IN A REFERENCE POPULATION, HAS BEEN CONFIRMED THE DECISION THRESHOLDFOR OK DIAGNOSIS. Performed By: #### B MARVIN FRENCH CMADM ####[facility] Anmztnojdx[address] [place], [place] [address]Dr. Garima Pulliam DORIS 83 ng/mL Normal 16-[address] [facility] Comment on above: Performed By: #### B MARVIN FRENCH CMADM ####[facility] Tnxgaulads[address] [place], [place] [address]Dr. Garima Pulliam CBC AUTO DIFFon 12-25-2022 BASO # 0.0 103/ul Normal 0.0-0.[address] [facility] Comment on above: Performed By: #### C BC ####[facility] Hbjaphjkqr[address] [place], [place] [address]Dr. Garima Pulliam Basophils/100 WBC (Bld) 0.0 % Critically low 0.2-2.[address] [facility] Comment on above: Performed By: #### C BC ####[facility] Hxjawbjash6787 [place] [address]Dr. Garima Pulliam EO # 0.0 103/ul Normal 0.0-0.[address] [facility] Comment on above: Performed By: #### C BC ####[facility] Mritsfrzqw[address] [place], [place] [address]Dr. Garima Pulliam Eosinophils/100 WBC (Bld) 0.7 % Critically low 0.9-7.0 [facility] Comment on above: Performed By: #### C BC ####[facility] Ebbzisiffj[address] [place], [place] [address]Dr. Garima Pulliam Erythrocyte distribution width (RBC) [Ratio] 13.4 % Normal 11.0-15.0 [facility] Comment on above: Performed By: #### C BC ####[facility] [address]ijpizvkjx[address] [place], [place] [address]Dr. Garima Pulliam Hematocrit (Bld) [Volume fraction] 42.9 % Normal 42.0-54.0 [facility] Comment on above: Performed By: #### C BC ####[facility] Nchnbrgryk[address] [place], [place] [address]Dr. Garima Pulliam Hemoglobin (Bld) [Mass/Vol] 14.4 g/dL Normal 14.0-18.0 [facility] Comment on above: Performed By: #### C BC ####[facility] Occrmrkvgz93[address] [place], [place] [address]Dr. Garima Pulliam IG # 0.00 10e3/ul Normal 0.00-0.[address] [facility] Comment on above: Performed By: #### C BC ####[facility] Occmvrrcqu63[address] [place], [place] [address]Dr. Garima Pulliam IG % 0.0 % Normal 0.0-0.[address] [facility] Comment on above: Performed By: #### C BC ####[facility] Pncmadygtm[address] [place], [place] [address]Dr. Garima Pulliam LYMPH # 2.4 103/ul Normal 1.2-3.[address] [facility] Comment on above: Performed By: #### C BC ####[facility] Uhtwbenovc2983 [place] [id number]. Chapisrenu Pulliam Lymphocytes/100 WBC (Bld) 29.2 % Normal 20.5-60.0 [facility] Comment on above: Performed By: #### C BC ####[facility] Cbyxlzectl3835 [place] [id number]. Garima Pulliam MANUAL DIFF REQ NO Normal [facility] Comment on above: Performed By: #### C BC ####[facility] Llvgnzkcjl1081 [place] [phone]. Garima Pulliam MCH (RBC) [Entitic mass] 30.7 pg Normal 25.9-34.0 [facility] Comment on above: Performed By: #### C BC ####[facility] Dzpfvnrmnh[address] [place], [place] [address]Dr. Garima Pulliam MCHC (RBC) [Mass/Vol] 33.6 g/dL Normal 29.9-35.[address] [facility] Comment on above: Performed By: #### C BC ####[facility] Iklubyknqi[address] [place], [place] [address]Dr. Garima Pulliam MCV (RBC) [Entitic vol] 91.5 fL Normal 80.0-94.0 [facility] Comment on above: Performed By: #### C BC ####[facility] Injpgeilmf46[address] [place], [place] [address]Dr. Garima Pulliam MONO # 0.0 103/ul Critically low 0.3-0.8 [facility] Comment on above: Performed By: #### C BC ####[facility] Pnnfchoctp9882 [place] [address]Dr. Garima Pulliam Monocytes/100 WBC (Bld) 8.0 % Normal 1.7-12.[address] [facility] Comment on above: Performed By: #### C BC ####[facility] Nqxlhkxcaa[address] [place], [place] [address]Dr. Garima Pulliam NEUT # 5.1 103/ul Normal 1.4-6.[address] [facility] Comment on above: Performed By: #### C BC ####[facility] Htjdhhufzz9514 [place], [place] [address]Sm. Garima Pulliam Neutrophils/100 WBC (Bld) 62.8 % Normal 43.0-75.0 [facility] Comment on above: Performed By: #### C BC ####[facility] Fqrzjxzpao5130 [place], [place] [address]Tb. Garima Pulliam Platelet mean volume (Bld) [Entitic vol] 8.6 fL Critically low 9.5-13.5 [facility] Comment on above: Performed By: #### C BC ####[facility] Xkovaydxov6282 [place] [id number]. Garima Pulliam PLT 200 103/ul Normal 150-[address] [facility] Comment on above: Performed By: #### C BC ####[facility] Sjozhiwpxx5591 [place] [id number]. Garima Pulliam RBC 4.69 106/ul Critically low 4.70-6.10 [facility] Comment on above: Performed By: #### C BC ####[facility] Escwxczucb5[address] [place], [place] [address]Tr. Garima Pulliam WBC 8.2 103/ul Normal 4.0-11.0 [facility] Comment on above: Performed By: #### C BC ####[facility] Csrskkqjtd0583 [place], [place] [address]Pg. Garima Pulliam [facility]on SARS-CoV-2 (COVID-19) RNA MARIE+probe Ql (Unsp spec) Not detected Normal NOT DETECTED [facility] Comment on above: Result Comment: When [...] for this test is supported by the [place] of Health and Human Service's declaration that [...] used). Performed By: #### C VDTBH ####[facility] [address]kssiwmv[address] [place], [place] [address]Dr. Garima Pulliam INFLUENZA A AND B AGon 12-25 INFLUANEGH SEE BELOW Normal [facility] Comment on above: Result Comment: Nega tive for Flu A protein angiten. Infection due to Flu A cannot be ruled out. Flu A angiten in the sample may be below the detection limit of the test. Performed By: #### I NFLUAB ####[facility] Zrhgwegtor[address] [place], [place] [address]Dr. Garima Pulliam INFLUBNEGH SEE BELOW Normal [facility] Comment on above: Result Comment: Nega tive for Flu B protein antigen. Infection due to Flu B cannot be ruled out. Flu B antigen in the sample may be below the detection limit of the test. Performed By: #### I NFLUAB ####[facility] Diplkarqfw[address] [place], [place] [address]Dr. Garima Pulliam INFLUENZA A AG Negative Normal NEGATIVE SEE COMMENT [facility] Comment on above: Performed By: #### I NFLUAB ####[facility] Rocbhbnvdl[address] [place], [place] [address]Dr. renu [facility] INFLUENZA B AG Negative Normal NEGATIVE SEE COMMENT [facility] Comment on above: Performed By: #### I NFLUAB ####[facility] Uvzdedlwgs[address] [place], [place] [address]Dr. Garima Pulliam PROF CHEM 8 (BAS METB)on Anion gap [Moles/Vol] 11.1 mmol/L Normal Th [facility] Comment on above: Performed By: #### B TORPEDO MAN, BMP, CMADM ####[facility] Rtbivzrbtv8[address] [place], [place] [address]Dr. Garima Pulliam Calcium [Mass/Vol] 8.5 mg/dL Normal 8.5-10.1 [facility] Comment on above: Performed By: #### B TORPEDO MAN, MARVIN, CMADM ####[facility] Yrcbahjxns0958 [place] [id number]. Garima Pulliam Chloride [Moles/Vol] 106 mmol/L Normal 98-107 [facility] Comment on above: Performed By: #### B TORPEDO MAN, BMP, CMADM ####[facility] Pyphangsbv7486 [place] [address]Dr. Garima Pulliam CO2 [Moles/Vol] 27.4 mmol/L Normal 21.0-32.[address] [facility] Comment on above: Performed By: #### B TORPEDO MAN, MARVIN, CMADM ####[facility] Azhoqevskb9008 [place] [address]Dr. Garima Pulliam Creatinine [Mass/Vol] 0.65 mg/dL Critically low 0.70-1.30 [facility] Comment on above: Performed By: #### B TORPEDO MAN, MARVIN, CMADM ####[facility] Wolshpxwmc9512 [place] [address]Dr. Garima Pulliam EGFR-AF AUSTRIAN >60 Normal >=[address] [facility] Comment on above: Performed By: #### B TORPEDO MAN, BMP, CMADM ####[facility] Zlosgjaxwb8399 [place] [address]Dr. Garima Pulliam EGFR-NON AF AUSTRIAN >60 Normal >=60 [facility] Comment on above: Performed By: #### B TORPEDO MAN, BMP, CMADM ####[facility] Glmpiqbzye2776 [place] [address]Dr. Garima Pulliam Glucose [Mass/Vol] 140 mg/dL Critically high 74-106 [facility] Comment on above: Performed By: #### B TORPEDO MAN, BMP, CMADM ####[facility] Fbvesarmgq2476 [place] [address]Dr. Garima Pulliam Potassium [Moles/Vol] 3.5 mmol/L Normal 3.5-5.1 [facility] Comment on above: Performed By: #### B TORPEDO MAN, BMP, CMADM ####[facility] Zuvcrtervb6522 [place] [address]Dr. Garima Pulliam Sodium [Moles/Vol] 141 mmol/L Normal 136-145 [facility] Comment on above: Performed By: #### B TORPEDO MAN, BMP, CMADM ####[facility] Cwugefmvyg3561 [place] [address]Dr. Garima Pulliam Urea nitrogen [Mass/Vol] 8.0 mg/dL Normal 7.0-18.0 [facility] Comment on above: Performed By: #### B TORPEDO MAN, BMP, CMADM ####[facility] Jrannvwqmb2699 [place] [address]Dr. Garima Pulliam Urea nitrogen/Creatinine [Mass ratio] 12.3 mg/mg Normal [facility] Comment on above: Performed By: #### B TORPEDO MAN, BMP, CMADM ####[facility] Vlcuvapifr[address] [place], [place] [address]Dr. Garima Pulliam CARDIAC NASH ADMITon 023 CK [Catalytic activity/Vol] 165 U/L Normal 39-308 [facility] Comment on above: Performed By: #### B DAVID, CMADM ####[facility] Dfgrukickn[address] [place], [place] [address]Dr. Garima Pulliam CK.MB [Mass/Vol] 6.48 ng/mL Critically high <=3.60 [facility] Comment on above: Performed By: #### B MP, CMADM ####[facility] Vtfmlchrie[address] [place], [place] [address]Dr. Garima Pulliam HSTROP 11.7 pg/mL Normal 4.0-76.1 [facility] Comment on above: Result Comment: CUT- OFF POINTS HAVE BEEN ESTABLISHED BASED ON THE FOURTH UNIVERSAL DEFINITIONS OF MYOCARDIALINFARCTION. THE UPPER REFERENCE LIMIT (URL) OF TROPONIN, DEFINED THE 99TH PERCENTILE OFcTnI DISTRIBUTION IN A REFERENCE POPULATION, HAS BEEN CONFIRMED THE DECISION THRESHOLDFOR OK DIAGNOSIS. Performed By: #### B MP, CMADM ####[facility] Derhejthob[address] [place], [place] [address]Dr. Garima Pulliam DORIS 83 ng/mL Normal 16-[address] [facility] Comment on above: Performed By: #### B MP, CMADM ####[facility] Jvxiejuhev2619 [place] [address]Dr. Garima Pulliam CBC AUTO DIFFon 12-10-2022 BASO # 0.0 103/ul Normal 0.0-0.[address] [facility] Comment on above: Performed By: #### C BC ####[facility] Z[address]dmiijtj[address] [place], [place] [address]Dr. Garima Heraclio Basophils/100 WBC (Bld) 0.3 % Normal 0.2-2.[address] [facility] Comment on above: Performed By: #### C BC ####[facility] Yrvjuyvomo[address] [place], [place] [address]Dr. Garima Pulliam EO # 0.1 103/ul Normal 0.0-0.[address] [facility] Comment on above: Performed By: #### C BC ####[facility] Uespgwvyrh[address] [place], [place] [address]Dr. Garima Pulliam Eosinophils/100 WBC (Bld) 0.4 % Critically low 0.9-7.[address] [facility] Comment on above: Performed By: #### C BC ####[facility] Hfxhwmfozy[address] [place], [place] [address]Dr. Garima Pulliam Erythrocyte distribution width (RBC) [Ratio] 13.2 % Normal 11.0-15.[address] [facility] Comment on above: Performed By: #### C BC ####[facility] Smrtogoaza2[address] [place], [place] [address]Dr. Garima Pulliam Hematocrit (Bld) [Volume fraction] 42.4 % Normal 42.0-54.[address] [facility] Comment on above: Performed By: #### C BC ####[facility] St[address]rhwxoh[address] [place], [place] [address]Dr. Garima Pulliam Hemoglobin (Bld) [Mass/Vol] 14.4 g/dL Normal 14.0-18.[address] [facility] Comment on above: Performed By: #### C BC ####[facility] Pbdbcsvoak3348 [place] [id number]. Garima Heraclio IG # 0.05 10e3/ul Critically high 0.00-0.03 [facility] Comment on above: Performed By: #### C BC ####[facility] Yhtjwbenxo3564 [place] [address]Dr. Garima Heraclio IG % 0.4 % Normal 0.0-0.[address] [facility] Comment on above: Performed By: #### C BC ####[facility] Vzehrhbpay[address] [place], [place] [address]Dr. Garima Pulliam LYMPH # 0.8 103/ul Critically low 1.2-3.8 The [facility] Comment on above: Performed By: #### C BC ####[facility] Wpluycofdo[address] [place], [place] [address]Dr. Chapisrenu Pulliam Lymphocytes/100 WBC (Bld) 6.5 % Critically low 20.5-60.[address] [facility] Comment on above: Performed By: #### C BC ####[facility] Ofjzxidxck47[address] [place], [place] [address]Dr. Chapisrenu Pulliam MANUAL DIFF REQ NO Normal The [facility] Comment on above: Performed By: #### C BC ####[facility] Kycbbfbxfp[address] [place], [place] [address]DrAdalberto Garima Pulliam MCH (RBC) [Entitic mass] 30.5 pg Normal 25.9-34.[address] [facility] Comment on above: Performed By: #### C BC ####[facility] Pnaayzvyly46[address] [place], [place] [address]DrAdalberto Garima Heraclio MCHC (RBC) [Mass/Vol] 34.0 g/dL Normal 29.9-35.[address] [facility] Comment on above: Performed By: #### C BC ####[facility] Vfauufkzjf[address] [place], [place] [address]DrAdalberto Garima Heraclio MCV (RBC) [Entitic vol] 89.8 fL Normal 80.0-94.[address] [facility] Comment on above: Performed By: #### C BC ####[facility] Fawrwejlcn[address] [place], [place] [address]Dr. Garima Pulliam MONO # 0.2 103/ul Critically low 0.3-0.8 The [facility] Comment on above: Performed By: #### C BC ####[facility] Rcvxdjulyt6436 [place] [id number]. Garima Pulliam Monocytes/100 WBC (Bld) 2.0 % Normal 1.7-12.[address] [facility] Comment on above: Performed By: #### C BC ####[facility] Xszwzcscsv[address] [place] [address]Dr. Chapisrenu Heraclio NEUT # 10.5 103/ul Critically high 1.4-6.[address] [facility] Comment on above: Performed By: #### C BC ####[facility] Einycbvycv0296 [place] [address]Dr. Garima Pulliam Neutrophils/100 WBC (Bld) 90.4 % Critically high 43.0-75.[address] [facility] Comment on above: Performed By: #### C BC ####[facility] Zyadfvrkyx4798 [place] [address]Dr. Garima Pulliam Platelet mean volume (Bld) [Entitic vol] 9.4 fL Critically low 9.5-13.[address] [facility] Comment on above: Performed By: #### C BC ####[facility] Xbyynuwijn6684 [place] [address]Dr. Garima Pulliam PLT 198 103/ul Normal 150-[address] [facility] Comment on above: Performed By: #### C BC ####[facility] Kovljekyix[address] [place] [address]Dr. Garima Pulliam RBC 4.72 106/ul Normal 4.70-6.[address] [facility] Comment on above: Performed By: #### C BC ####[facility] Lbaftftpyy8473 [place] [id number]. Garima Pulliam WBC 11.6 103/ul Critically high 4.0-11.[address] [facility] Comment on above: Performed By: #### C BC ####[facility] Jazkislieg[address] [place] [address]DrAdablerto Pulliam PROF CHEM 8 (BAS METB)on Anion gap [Moles/Vol] 11.3 mmol/L Normal Th [facility] [place] [facility] Comment on above: Performed By: #### B NANCY HERNANDEZ ####[facility] Zdtibyfcie[address] [place] [address]Dr. Garima Pulliam Calcium [Mass/Vol] 8.9 mg/dL Normal 8.5-10.1 [facility] Comment on above: Performed By: #### B NANCY HERNANDEZ ####[facility] Onoatoaitf6904 [place] [address]Dr. Garima Pulliam Chloride [Moles/Vol] 103 mmol/L Normal 98-107 [facility] Comment on above: Performed By: #### B NANCY HERNANDEZ ####[facility] Jakgovnjgc[address] [place], [place] [address]Dr. Garima Pulliam CO2 [Moles/Vol] 28.2 mmol/L Normal 21.0-32.[address] [facility] Comment on above: Performed By: #### NANCY Larkin MP ####[facility] Sumzffxavi8[address] [place] [address]Dr. Chapisrenu Pulliam Creatinine [Mass/Vol] 0.60 mg/dL Critically low 0.70-1.30 [facility] Comment on above: Performed By: #### NANCY Larkin MP ####[facility] Hagzlbzyzj35[address] [place] [address]Dr. Garima Pulliam EGFR-AF AUSTRIAN >60 Normal >=[address] [facility] Comment on above: Performed By: #### NANCY Larkin MP ####[facility] Eoeuvrpsek[address]41 [place] [address]Dr. Garima Pulliam EGFR-NON AF AUSTRIAN >60 Normal >=60 [facility] Comment on above: Performed By: #### NANCY Larkin MP ####[facility] Vgalkpblnl94[address] [place], [place] [address]Dr. Garmia Pulliam Glucose [Mass/Vol] 166 mg/dL Critically high 74-106 [facility] Comment on above: Performed By: #### B MP, CMADM ####[facility] Eydpvclrfh8920 [place] [address]Dr. Garima Pulliam Potassium [Moles/Vol] 3.5 mmol/L Normal 3.5-5.[address] [facility] Comment on above: Performed By: #### B MP, CMADM ####[facility] Otmahfbbai3502 [place] [address]Dr. Garima Pulliam Sodium [Moles/Vol] 139 mmol/L Normal 136-145 The [facility] Comment on above: Performed By: #### B DAVID, CMADM ####[facility] Vooolzzpjc5623 [place] [address]Dr. Garima Heraclio Urea nitrogen [Mass/Vol] 9.0 mg/dL Normal 7.0-18.[address] [facility] Comment on above: Performed By: #### B DAVID, NANCY ####[facility] Domndtpbvp5[address] [place], [place] [address]Dr. Garima Heraclio Urea nitrogen/Creatinine [Mass ratio] 15.0 mg/mg Normal [facility] Comment on above: Performed By: #### B DAVID, CMAANA ROSA ####[facility] Gmsucvxsfl2[address] [place], [place] [address]Dr. Garima Pulliam XR CHEST 1 Von 12-10-2022 XR CHEST [address] [facility] BNPon 11-27-2022 Natriuretic peptide B (Bld) [Mass/Vol] 95.0 pg/mL Normal <=900.[address] [facility] Comment on above: Performed By: #### C MP, HSTROPN, BNP ####[facility] Gzsgzuzgng04[address] [place], [place] [address]Dr. Garima Heraclio CBC AUTO DIFFon 11-27-2022 BASO # 0.0 103/ul Normal 0.0-0.[address] [facility] Comment on above: Performed By: #### C BC ####[facility] Fnwnxubuna[address] [place], [place] [address]Dr. Garima Heraclio Basophils/100 WBC (Bld) 0.2 % Normal 0.2-2.[address] [facility] Comment on above: Performed By: #### C BC ####[facility] Kphjlyxhkk6921 [place] [id number]. Garima Pulliam EO # 0.2 103/ul Normal 0.0-0.[address] [facility] Comment on above: Performed By: #### C BC ####[facility] Ocaokzbrhl5461 [place] [address]Dr. Garima Pulliam Eosinophils/100 WBC (Bld) 2.0 % Normal 0.9-7.[address] [facility] Comment on above: Performed By: #### C BC ####[facility] Wjwejvxnqe07[address] [place], [place] [address]Dr. Garima Pulliam Erythrocyte distribution width (RBC) [Ratio] 13.2 % Normal 11.0-15.[address] [facility] Comment on above: Performed By: #### C BC ####[facility] Yqmuuqrnfn[address] [place], [place] [address]Dr. Garima Pulliam Hematocrit (Bld) [Volume fraction] 42.4 % Normal 42.0-54.[address] [facility] Comment on above: Performed By: #### C BC ####[facility] Izinancppt11[address] [place], [place] [address]Dr. Garima Pulliam Hemoglobin (Bld) [Mass/Vol] 14.4 g/dL Normal 14.0-18.[address] [facility] Comment on above: Performed By: #### C BC ####[facility] Lqxgipumwv[address] [place], [place] [address]Dr. Garima Pulliam IG # 0.04 10e3/ul Critically high 0.00-0.03 The [facility] Comment on above: Performed By: #### C BC ####[facility] Akvynyvfwj[address] [place], [place] [address]Dr. Garima Pulliam IG % 0.4 % Normal 0.0-0.[address] [facility] Comment on above: Performed By: #### C BC ####[facility] Xyrpjvgcrg[address] [place], [place] [address]Dr. Garima Pulliam LYMPH # 2.2 103/ul Normal 1.2-3.[address] [facility] Comment on above: Performed By: #### C BC ####[facility] Bculndwrvp5337 [place] [id number]. Garima Pulliam Lymphocytes/100 WBC (Bld) 21.5 % Normal 20.5-60.[address] [facility] Comment on above: Performed By: #### C BC ####[facility] Uhtqxndfej8465 [place] [id number]. Garima Heraclio MANUAL DIFF REQ NO Normal [facility] Comment on above: Performed By: #### C BC ####[facility] Fzxvggskhr3356 [place] [id number]. Garima Heraclio MCH (RBC) [Entitic mass] 30.4 pg Normal 25.9-34.[address] [facility] Comment on above: Performed By: #### C BC ####[facility] Xxklbmcccp8197 [place] [address]Dr. Garima Heraclio MCHC (RBC) [Mass/Vol] 34.0 g/dL Normal 29.9-35.[address] [facility] Comment on above: Performed By: #### C BC ####[facility] Ojyzyrmpqc0824 [place] [id number]. Garima Pulliam MCV (RBC) [Entitic vol] 89.6 fL Normal 80.0-94.[address] [facility] Comment on above: Performed By: #### C BC ####[facility] Ekkbzcabsk4578 [place] [address]Dr. Garima Pulliam MONO # 0.8 103/ul Normal 0.3-0.[address] [facility] Comment on above: Performed By: #### C BC ####[facility] Wxipnfjtzs0507 [place] [address]Dr. Chapisrenu Pulliam Monocytes/100 WBC (Bld) 7.7 % Normal 1.7-12.[address] [facility] Comment on above: Performed By: #### C BC ####[facility] Ecp[address]lkmu[address] [place], [place] [address]Dr. Garima Pulliam NEUT # 7.0 103/ul Critically high 1.4-6.5 [facility] Comment on above: Performed By: #### C BC ####[facility] Vnjfydaqpo4622 [place] [id number]. Garima Pulliam Neutrophils/100 WBC (Bld) 68.2 % Normal 43.0-75.0 [facility] Comment on above: Performed By: #### C BC ####[facility] Pcloiijuwt9639 [place] [id number]. Chapisrenu Pulliam Platelet mean volume (Bld) [Entitic vol] 8.9 fL Critically low 9.5-13.5 [facility] Comment on above: Performed By: #### C BC ####[facility] [address]lluxnyr[address] [place] [address]Dr. Garima Pulliam PLT 222 103/ul Normal 150-450 [facility] Comment on above: Performed By: #### C BC ####[facility] Oofgbpyjyo9952 [place] [address]Dr. Garima Pulliam RBC 4.73 106/ul Normal 4.70-6.[address] [facility] Comment on above: Performed By: #### C BC ####[facility] Xwvnjconxy7934 [place] [address]Dr. Garima Pulliam WBC 10.3 103/ul Normal 4.0-11.0 [facility] Comment on above: Performed By: #### C BC ####[facility] Bkrzifzrgb8376 [place] [address]Dr. Garima Pulliam PROF 14(COMP METB)on 023 Albumin [Mass/Vol] 3.7 g/dL Normal 3.4-5.0 [facility] Comment on above: Performed By: #### C MP, HSTROPN, BNP ####[facility] Lktithafjz0951 [place] [address]Dr. Chapisrenu Pulliam Albumin/Globulin [Mass ratio] 1.5 {ratio} Normal [facility] Comment on above: Performed By: #### C MP, HSTROPN, BNP ####[facility] Qjknjnbmnk1109 [place] [address]Dr. Garima Pulliam ALP [Catalytic activity/Vol] 79 U/L Normal 46-[address] [facility] Comment on above: Performed By: #### C MP, HSTROPN, BNP ####[facility] Jbfwclxoqp9802 [place] [address]Dr. Garima Pulliam ALT [Catalytic activity/Vol] 32 U/L Normal 16-63 [facility] Comment on above: Performed By: #### C MP, HSTROPN, BNP ####[facility] Pqqdfzuzne3957 [place] [address]Dr. Garima Pulliam Anion gap [Moles/Vol] 9.5 mmol/L Normal [facility] Comment on above: Performed By: #### C MP, HSTROPN, BNP ####[facility] Iyuxzjtzvh[address] [place], [place] [address]Dr. Garima Pulliam AST [Catalytic activity/Vol] 25 U/L Normal 15-37 [facility] Comment on above: Performed By: #### C MP, HSTROPN, BNP ####[facility] Ijwzixnpdb65[address] [place], [place] [address]Dr. Chapislan Pulliam Bilirubin [Mass/Vol] 0.4 mg/dL Normal 0.2-1.[address] [facility] Comment on above: Performed By: #### C MP, HSTROPN, BNP ####[facility] Htioymuqfj[address] [place], [place] [address]Dr. Garima Pulliam Calcium [Mass/Vol] 8.9 mg/dL Normal 8.5-10.1 [facility] Comment on above: Performed By: #### C MP, HSTROPN, BNP ####[facility] Zcdsmsdhsi[address] [place], [place] [address]Dr. Chapislan Pulliam Chloride [Moles/Vol] 103 mmol/L Normal 98-[address] [facility] Comment on above: Performed By: #### C MP, HSTROPN, BNP ####[facility] Xnwnxoituc5[address] [place], [place] [address]Dr. Yilan Pulliam CO2 [Moles/Vol] 28.6 mmol/L Normal 21.0-32.[address] [facility] Comment on above: Performed By: #### C MP, HSTROPN, BNP ####[facility] Nsriuocyqv5450 [place] [address]Dr. Garima Pulliam Creatinine [Mass/Vol] 0.72 mg/dL Normal 0.70-1.30 [facility] Comment on above: Performed By: #### C MP, HSTROPN, BNP ####[facility] Bstdlcgcsg2142 [place] [address]Dr. Garima Pulliam EGFR-AF AUSTRIAN >60 Normal >=[address] [facility] Comment on above: Performed By: #### C MP, HSTROPN, BNP ####[facility] Cquwfpqahf9767 [place] [address]Dr. Garima Pulliam EGFR-NON AF AUSTRIAN >60 Normal >=60 [facility] Comment on above: Performed By: #### C MP, HSTROPN, BNP ####[facility] Aimanuvkkv5867 [place] [address]Dr. Garima Pulliam Globulin (S) [Mass/Vol] 2.5 g/dL Normal [facility] Comment on above: Performed By: #### C MP, HSTROPN, BNP ####[facility] J[address]jbthsjd72[address] [place], [place] [address]Dr. Garima Pulliam Glucose [Mass/Vol] 114 mg/dL Critically high 74-[address] [facility] Comment on above: Performed By: #### C MP, HSTROPN, BNP ####[facility] Gomlbobbzv[address] [place], [place] [address]Dr. Garima Pulliam Potassium [Moles/Vol] 4.1 mmol/L Normal 3.5-5.1 [facility] Comment on above: Performed By: #### C MP, HSTROPN, BNP ####[facility] [address]akohzyqz06[address] [place], [place] [address]Dr. Garima Pulliam Protein [Mass/Vol] 6.2 g/dL Critically low 6.4-8.2 Th [facility] Comment on above: Performed By: #### C MP, HSTROPN, BNP ####[facility] Lwbjpknlic[address] [place], [place] [address]Dr. Yilan Pulliam Sodium [Moles/Vol] 137 mmol/L Normal 136-145 The [facility] Comment on above: Performed By: #### C MP, HSTROPN, BNP ####[facility] Czbfqehngj0925 [place] [address]Dr. Garima Pulliam Urea nitrogen [Mass/Vol] 13.0 mg/dL Normal 7.0-18.0 [facility] Comment on above: Performed By: #### C MP, HSTROPN, BNP ####[facility] Fanwkutiym2511 [place] [address]Dr. Garima Pulliam Urea nitrogen/Creatinine [Mass ratio] 18.1 mg/mg Normal [facility] Comment on above: Performed By: #### C MP, HSTROPN, BNP ####[facility] Zzapzfjrzd[address] [place], [place] [address]Dr. Garima Pulliam TROPONIN, HIGH SENSITIVITYon 11-27-2022 HSTROP 11.8 pg/mL Normal 4.0-76.1 [facility] Comment on above: Result Comment: CUT- OFF POINTS HAVE BEEN ESTABLISHED BASED ON THE FOURTH UNIVERSAL DEFINITIONS OF MYOCARDIALINFARCTION. THE UPPER REFERENCE LIMIT (URL) OF TROPONIN, DEFINED THE 99TH PERCENTILE OFcTnI DISTRIBUTION IN A REFERENCE POPULATION, HAS BEEN CONFIRMED THE DECISION THRESHOLDFOR OK DIAGNOSIS. Performed By: #### C MP, HSTROPN, BNP ####[facility] Nemvxyozyt[address] [place], [place] [address]Dr. Garima Pulliam XR CHEST 1 Von 11-27-2022 XR CHEST [address] [facility] BNPon 11-20-2022 Natriuretic peptide B (Bld) [Mass/Vol] 73.0 pg/mL Normal <=900.[address] [facility] Comment on above: Performed By: #### B MP, HSTROPN, BNP ####[facility] Hoboqazmne[address] [place], [place] [address]Dr. Garima Pulliam CBC AUTO DIFFon 11-20-2022 BASO # 0.0 103/ul Normal 0.0-0.1 [facility] Comment on above: Performed By: #### C BC ####[facility] Puaxcgsmqx7738 [place] [id number]. Garima Pulliam Basophils/100 WBC (Bld) 0.3 % Normal 0.2-2.[address] [facility] Comment on above: Performed By: #### C BC ####[facility] Ybjfrrsjst1690 [place] [id number]. Garima Pulliam EO # 0.2 103/ul Normal 0.0-0.[address] [facility] Comment on above: Performed By: #### C BC ####[facility] Sdfxdoymbn5763 [place] [address]Dr. Garima Pulliam Eosinophils/100 WBC (Bld) 2.1 % Normal 0.9-7.[address] [facility] Comment on above: Performed By: #### C BC ####[facility] Rljrltguhv[address] [place], [place] [address]Dr. Garima Pulliam Erythrocyte distribution width (RBC) [Ratio] 13.2 % Normal 11.0-15.[address] [facility] Comment on above: Performed By: #### C BC ####[facility] Fftnxhnlkg10[address] [place], [place] [address]Dr. Garima Pulliam Hematocrit (Bld) [Volume fraction] 43.4 % Normal 42.0-54.[address] [facility] Comment on above: Performed By: #### C BC ####[facility] [address]az[address] [place], [place] [id number]. Garima Pulliam Hemoglobin (Bld) [Mass/Vol] 14.6 g/dL Normal 14.0-18.[address] [facility] Comment on above: Performed By: #### C BC ####[facility] Kquvankeun9770 [place] [address]Dr. Garima Pulliam IG # 0.02 10e3/ul Normal 0.00-0.[address] [facility] Comment on above: Performed By: #### C BC ####[facility] Kpxjcbulmj7762 [place] [address]Dr. Garima Pulliam IG % 0.2 % Normal 0.0-0.[address] [facility] Comment on above: Performed By: #### C BC ####[facility] Lbbhzqukgt4086 [place] [address]Dr. Garima Heraclio LYMPH # 2.1 103/ul Normal 1.2-3.[address] [facility] Comment on above: Performed By: #### C BC ####[facility] Oeztiycpib1121 [place] [address]Dr. Garima Heraclio Lymphocytes/100 WBC (Bld) 19.2 % Critically low 20.5-60.[address] [facility] Comment on above: Performed By: #### C BC ####[facility] Ufaptlxvci9142 [place] [address]Dr. Chapisrenu Pulliam MANUAL DIFF REQ NO Normal [facility] Comment on above: Performed By: #### C BC ####[facility] Tyawprhotv2984 [place] [id number]. Garima Heraclio MCH (RBC) [Entitic mass] 30.4 pg Normal 25.9-34.[address] [facility] Comment on above: Performed By: #### C BC ####[facility] Qvgdzqzoof5926 [place] [address]Dr. Garima Pulliam MCHC (RBC) [Mass/Vol] 33.6 g/dL Normal 29.9-35.[address] [facility] Comment on above: Performed By: #### C BC ####[facility] Mhpufhgwlk9015 [place] [id number]. Garima Heraclio MCV (RBC) [Entitic vol] 90.4 fL Normal 80.0-94.[address] [facility] Comment on above: Performed By: #### C BC ####[facility] Oypirrygaj6536 [place] [address]Dr. Garima Heraclio MONO # 0.6 103/ul Normal 0.3-0.[address] [facility] Comment on above: Performed By: #### C BC ####[facility] Rlvnkbulrt2749 [place] [address]Dr. Garima Heraclio Monocytes/100 WBC (Bld) 5.8 % Normal 1.7-12.[address] [facility] Comment on above: Performed By: #### C BC ####[facility] Gnsbfqcdwl6981 [place], [place] [address]Js. Garima Pulliam NEUT # 7.8 103/ul Critically high 1.4-6.5 [facility] Comment on above: Performed By: #### C BC ####[facility] Syjnuacsyt2739 [place] [id number]. Garima Pulliam Neutrophils/100 WBC (Bld) 72.4 % Normal 43.0-75.[address] [facility] Comment on above: Performed By: #### C BC ####[facility] Yblmodqrqk3698 [place] [address]Dr. Garima Pulliam Platelet mean volume (Bld) [Entitic vol] 8.7 fL Critically low 9.5-13.[address] [facility] Comment on above: Performed By: #### C BC ####[facility] Cqvoidpccu3859 [place] [id number]. Garima Pulliam PLT 184 103/ul Normal 150-[address] [facility] Comment on above: Performed By: #### C BC ####[facility] Upgchsmpib4856 [place], [place] [address]Mx. Garima Pulliam RBC 4.80 106/ul Normal 4.70-6.[address] [facility] Comment on above: Performed By: #### C BC ####[facility] Ixnphsjitr0004 [place] [address]Dr. Garima Pulliam WBC 10.8 103/ul Normal 4.0-11.[address] [facility] Comment on above: Performed By: #### C BC ####[facility] Mxxtpyrzkg1666 [place] [id number]. Garima Pulliam [facility]-24 SARS-CoV-2 (COVID-19) RNA MARIE+probe Ql (Unsp spec) Not detected Normal NOT DETECTED [facility] Comment on above: Result Comment: When [...] for this test is supported by the [employer] Health and Human Service's declaration that [...] used). Performed By: #### C VDTBH ####[facility] [address]ftwgujtsx[address] [place], [place] [address]Dr. Garima Pulliam INFLUENZA A AND B AGon 11-20 [facility] SEE BELOW Normal [facility] Comment on above: Result Comment: Nega tive for Flu A protein angiten. Infection due to Flu A cannot be ruled out. Flu A angiten in the sample may be below the detection limit of the test. Performed By: #### I NFLUAB ####[facility] Yddavocqie[address] [place], [place] [address]Dr. Garima Pulliam INFLUBNEGH SEE BELOW Normal [facility] Comment on above: Result Comment: Nega tive for Flu B protein antigen. Infection due to Flu B cannot be ruled out. Flu B antigen in the sample may be below the detection limit of the test. Performed By: #### I NFLUAB ####[facility] Vanrnlgyie7[address] [place], [place] [address]Dr. Garima Pulliam INFLUENZA A AG Negative Normal NEGATIVE SEE COMMENT [facility] Comment on above: Performed By: #### I NFLUAB ####[facility] Aonhoyqfig14[address] [place], [place] [address]Dr. Garima [facility] INFLUENZA B AG Negative Normal NEGATIVE SEE COMMENT [facility] Comment on above: Performed By: #### I NFLUAB ####[facility] Csbreunhup[address] [place], [place] [address]Dr. Garima Pulliam PROF CHEM 8 (BAS METB)on Anion gap [Moles/Vol] 8.2 mmol/L Normal [facility] Comment on above: Performed By: #### B MP, HSTROPN, BNP ####[facility] Udatmcheml5339 [place] [address]Dr. Garima Pulliam Calcium [Mass/Vol] 8.7 mg/dL Normal 8.5-10.1 [facility] Comment on above: Performed By: #### B MP, HSTROPN, BNP ####[facility] Wrjabkmssf4012 [place] [address]Dr. Garima Pulliam Chloride [Moles/Vol] 103 mmol/L Normal 98-107 [facility] Comment on above: Performed By: #### B MP, HSTROPN, BNP ####[facility] [address]avbxgwxg[address] [place], [place] [address]Dr. Garima Pulliam CO2 [Moles/Vol] 29.4 mmol/L Normal 21.0-32.[address] [facility] Comment on above: Performed By: #### B MP, HSTROPN, BNP ####[facility] Bcykswhnmg[address] [place], [place] [address]Dr. Garima Pulliam Creatinine [Mass/Vol] 0.69 mg/dL Critically low 0.70-1.30 [facility] Comment on above: Performed By: #### B MP, HSTROPN, BNP ####[facility] Nknrducryu8116 [place] [address]Dr. Garima Pulliam EGFR-AF AUSTRIAN >60 Normal >=[address] [facility] Comment on above: Performed By: #### B MP, HSTROPN, BNP ####[facility] [address]hsrrqtp[address] [place], [place] [address]Dr. Garima Pulliam EGFR-NON AF AUSTRIAN >60 Normal >=60 [facility] Comment on above: Performed By: #### B MP, HSTROPN, BNP ####[facility] Osvkubflgn9176 [place] [address]Dr. Garima Pulliam Glucose [Mass/Vol] 209 mg/dL Critically high 74-[address] [facility] Comment on above: Performed By: #### B MP, HSTROPN, BNP ####[facility] Lrzyakxbhi1637 [place] [address]Dr. Garima Pulliam Potassium [Moles/Vol] 3.6 mmol/L Normal 3.5-5.1 [facility] Comment on above: Performed By: #### B MP, HSTROPN, BNP ####[facility] Ajmfdzoyva9049 [place] [address]Dr. Garima Pulliam Sodium [Moles/Vol] 137 mmol/L Normal 136-145 [facility] Comment on above: Performed By: #### B MP, HSTROPN, BNP ####[facility] Rekgumgwmw2685 [place] [address]Dr. Garima Pulliam Urea nitrogen [Mass/Vol] 11.0 mg/dL Normal 7.0-18.0 [facility] Comment on above: Performed By: #### B MP, HSTROPN, BNP ####[facility] Vzsfqhciip7632 [place] [address]Dr. Garima Pulliam Urea nitrogen/Creatinine [Mass ratio] 15.9 mg/mg Normal [facility] Comment on above: Performed By: #### B MP, HSTROPN, BNP ####[facility] [address] [place] [address]Dr. Garima Pulliam TROPONIN, HIGH SENSITIVITYon 11-20-2022 HSTROP 8.7 pg/mL Normal 4.0-76.1 [facility] Comment on above: Result Comment: CUT- OFF POINTS HAVE BEEN ESTABLISHED BASED ON THE FOURTH UNIVERSAL DEFINITIONS OF MYOCARDIALINFARCTION. THE UPPER REFERENCE LIMIT (URL) OF TROPONIN, DEFINED THE 99TH PERCENTILE OFcTnI DISTRIBUTION IN A REFERENCE POPULATION, HAS BEEN CONFIRMED THE DECISION THRESHOLDFOR OK DIAGNOSIS. Performed By: #### B MP, HSTROPN, BNP ####[facility] V[address]rrwpkav[address] [place] [address]Dr. Garima Pulliam XR CHEST 1 Von 11-20-2022 XR CHEST [address] [facility] XR CHEST 1 Von 10-02-2022 XR CHEST [address] [facility] BNPon 09-29-2022 Natriuretic peptide B (Bld) [Mass/Vol] 107.0 pg/mL Normal <=900.[address] [facility] Comment on above: Performed By: #### C MP, BNP, CMADM ####[facility] [address]jpwigshhk[address] [place] [address]Dr. Garima Pulliam CARDIAC NASH ADMITon 022 CK [Catalytic activity/Vol] 190 U/L Normal 39-[address] [facility] Comment on above: Performed By: #### C MP, BNP, CMADM ####[facility] Tsgkbcmreg[address] [place] [address]Dr. Garima Heraclio CK.MB [Mass/Vol] 11.11 ng/mL Critically high <=3.60 Th [facility] Comment on above: Performed By: #### C MP, BNP, CMADM ####[facility] Zbsixuxvug[address] [place] [address]Dr. Garima Pulliam HSTROP 11.8 pg/mL Normal 4.0-76.[address] [facility] Comment on above: Result Comment: CUT- OFF POINTS HAVE BEEN ESTABLISHED BASED ON THE FOURTH UNIVERSAL DEFINITIONS OF MYOCARDIALINFARCTION. THE UPPER REFERENCE LIMIT (URL) OF TROPONIN, DEFINED THE 99TH PERCENTILE OFcTnI DISTRIBUTION IN A REFERENCE POPULATION, HAS BEEN CONFIRMED THE DECISION THRESHOLDFOR OK DIAGNOSIS. Performed By: #### C MP, BNP, CMADM ####[facility] Mtjtulnigz4[address] [place] [address]Dr. Garima Pulliam DORIS 133 ng/mL Critically high 16-96 [facility] Comment on above: Performed By: #### C MP, BNP, CMADM ####[facility] Sbtfyjaobo[address] [place] [address]Dr. Garima Heraclio CBC AUTO DIFFon 09-29-2022 BASO # 0.0 103/ul Normal 0.0-0.[address] [facility] Comment on above: Performed By: #### C BC ####[facility] Osouvfgtae[address] [place] [address]Dr. Garima Heraclio Basophils/100 WBC (Bld) 0.2 % Normal 0.2-2.[address] [facility] Comment on above: Performed By: #### C BC ####[facility] Hfhyyhlibb220[address] [place] [id number]. Garima Pulliam EO # 0.1 103/ul Normal 0.0-0.[address] [facility] Comment on above: Performed By: #### C BC ####[facility] Usjkbzpbfr[address] [place] [address]Dr. Garima Pulliam Eosinophils/100 WBC (Bld) 1.4 % Normal 0.9-7.[address] [facility] Comment on above: Performed By: #### C BC ####[facility] Cwssccalau[address] [place], [place] [address]Dr. Garima Pulliam Erythrocyte distribution width (RBC) [Ratio] 13.7 % Normal 11.0-15.0 [facility] Comment on above: Performed By: #### C BC ####[facility] Lppqidnctr[address] [place], [place] [address]Dr. Garima Pulliam Hematocrit (Bld) [Volume fraction] 45.4 % Normal 42.0-54.0 [facility] Comment on above: Performed By: #### C BC ####[facility] Jvvukxkqnz02[address] [place], [place] [address]Dr. Garima Pulliam Hemoglobin (Bld) [Mass/Vol] 14.8 g/dL Normal 14.0-18.0 [facility] Comment on above: Performed By: #### C BC ####[facility] Ohozqsxtoj[address] [place], [place] [address]Dr. Garima Pulliam IG # 0.04 10e3/ul Critically high 0.00-0.03 [facility] Comment on above: Performed By: #### C BC ####[facility] Uijgkfhbhn[address] [place], [place] [address]Dr. Garima Pulliam IG % 0.5 % Normal 0.0-0.[address] [facility] Comment on above: Performed By: #### C BC ####[facility] Qckjsivyyw39[address] [place], [place] [address]Dr. Garima Pulliam LYMPH # 1.1 103/ul Critically low 1.2-3.8 The [facility] Comment on above: Performed By: #### C BC ####[facility] Ztxsbtelax7340 [place] [id number]. Garima Pulliam Lymphocytes/100 WBC (Bld) 12.7 % Critically low 20.5-60.0 [facility] Comment on above: Performed By: #### C BC ####[facility] Ihpixkhygz8487 [place] [id number]. Chapisrenu Pulliam MANUAL DIFF REQ NO Normal [facility] Comment on above: Performed By: #### C BC ####[facility] Gvcirrsmmu[address] [place], [place] [address]Dr. Garima Heraclio MCH (RBC) [Entitic mass] 30.0 pg Normal 25.9-34.[address] [facility] Comment on above: Performed By: #### C BC ####[facility] Oeivkxzzka[address] [place], [place] [address]Dr. Garima Heraclio MCHC (RBC) [Mass/Vol] 32.6 g/dL Normal 29.9-35.[address] [facility] Comment on above: Performed By: #### C BC ####[facility] Iniaavrrya[address] [place], [place] [address]Dr. Garima Heraclio MCV (RBC) [Entitic vol] 91.9 fL Normal 80.0-94.[address] [facility] Comment on above: Performed By: #### C BC ####[facility] Nuafybddjg[address] [place], [place] [address]Dr. Garima Pulliam MONO # 0.4 103/ul Normal 0.3-0.[address] [facility] Comment on above: Performed By: #### C BC ####[facility] Pwgkxayvio[address] [place], [place] [address]Dr. Chapisrenu Pulliam Monocytes/100 WBC (Bld) 4.8 % Normal 1.7-12.[address] [facility] Comment on above: Performed By: #### C BC ####[facility] Ohsxzywndz[address] [place], [place] [address]Dr. Garima Pulliam NEUT # 7.1 103/ul Critically high 1.4-6.5 [facility] Comment on above: Performed By: #### C BC ####[facility] Ewwrzjtzfr5734 [place], [place] [address]Ai. Garima Pulliam Neutrophils/100 WBC (Bld) 80.4 % Critically high 43.0-75.0 [facility] Comment on above: Performed By: #### C BC ####[facility] Wcxdewahyk2902 [place] [id number]. Garima Pulliam Platelet mean volume (Bld) [Entitic vol] 9.1 fL Critically low 9.5-13.5 [facility] Comment on above: Performed By: #### C BC ####[facility] Ufzvipzfgb2203 [place] [id number]. Garima Pulliam PLT 200 103/ul Normal 150-[address] [facility] Comment on above: Performed By: #### C BC ####[facility] Fcijrqxlja5953 [place] [address]Dr. Garima Pulliam RBC 4.94 106/ul Normal 4.70-6.[address] [facility] Comment on above: Performed By: #### C BC ####[facility] Rcwafrpkxa4724 [place] [address]Dr. Garima Pulliam WBC 8.9 103/ul Normal 4.0-11.[address] [facility] Comment on above: Performed By: #### C BC ####[facility] Zjewiwbuuj2941 [place] [id number]. Garima Pulliam Covid-19 PCR (CVDTB)on SARS-CoV-2 (COVID-19) RNA MARIE+probe Ql (Unsp spec) Not detected Normal NOT DETECTED [facility] Comment on above: Result Comment: When [...] for this test is supported by the [employer] and Human Service's declaration that [...] used). Performed By: #### C VDTBH ####[facility] [address]ildsoshn[address] [place] [address]Dr. Garima Pulliam LACTATE/LACTIC ACIDon 2021 Lactate [Moles/Vol] 1.7 mmol/L Normal 0.4-1.9 [facility] Comment on above: Performed By: #### L ACT ####[facility] Qptcmuxhkp[address] [place], [place] [address]Dr. Garima Pulliam PROF 14(COMP METB)on 022 Albumin [Mass/Vol] 3.8 g/dL Normal 3.4-5.0 [facility] Comment on above: Performed By: #### C MP, BNP, CMADM ####[facility] Xijjglffby[address] [place], [place] [address]Dr. Garima Pulliam Albumin/Globulin [Mass ratio] 1.5 {ratio} Normal [facility] Comment on above: Performed By: #### C MP, BNP, CMADM ####[facility] Vtpriaxwey3045 [place] [address]Dr. Garima Pulliam ALP [Catalytic activity/Vol] 62 U/L Normal 46-116 [facility] Comment on above: Performed By: #### C MP, BNP, CMADM ####[facility] Ncymtxlinl1298 [place] [address]Dr. Garima Pulliam ALT [Catalytic activity/Vol] 37 U/L Normal 16-63 [facility] Comment on above: Performed By: #### C MP, BNP, CMADM ####[facility] Runynjegkp93[address] [place] [address]Dr. Garima Pulliam Anion gap [Moles/Vol] 8.0 mmol/L Normal [facility] Comment on above: Performed By: #### C MP, BNP, CMADM ####[facility] Bdkiyepbhh7476 [place] [address]Dr. Garima Pulliam AST [Catalytic activity/Vol] 20 U/L Normal 15-37 [facility] Comment on above: Performed By: #### C MP, BNP, CMADM ####[facility] Sjsfsbroxo1892 [place] [address]Dr. Garima Pulliam Bilirubin [Mass/Vol] 0.6 mg/dL Normal 0.2-1.[address] [facility] Comment on above: Performed By: #### C MP, BNP, CMADM ####[facility] Okyynronlt9635 [place] [address]Dr. Garima Pulliam Calcium [Mass/Vol] 9.1 mg/dL Normal 8.5-10.1 [facility] Comment on above: Performed By: #### C MP, BNP, CMADM ####[facility] Gnwcjojlhg6[address] [place], [place] [address]Dr. Garima Pulliam Chloride [Moles/Vol] 103 mmol/L Normal 98-[address] [facility] Comment on above: Performed By: #### C MP, BNP, CMADM ####[facility] Kvsoqoovlw[address] [place], [place] [address]Dr. Garima Pulliam CO2 [Moles/Vol] 31.8 mmol/L Normal 21.0-32.[address] [facility] Comment on above: Performed By: #### C MP, BNP, CMADM ####[facility] Czmdusacqb[address] [place], [place] [address]Dr. Garima Pulliam Creatinine [Mass/Vol] 0.63 mg/dL Critically low 0.70-1.[address] [facility] Comment on above: Performed By: #### C MP, BNP, CMADM ####[facility] Dgyatrntwt[address] [place], [place] [address]Dr. Garima Pulliam EGFR-AF AUSTRIAN >60 Normal >=[address] [facility] Comment on above: Performed By: #### C MP, BNP, CMADM ####[facility] Mrsmrskgls[address] [place], [place] [address]Dr. Garima Pulliam EGFR-NON AF AUSTRIAN >60 Normal >=[address] [facility] Comment on above: Performed By: #### C MP, BNP, CMADM ####[facility] Dldswxxsnw2585 [place] [address]Dr. Garima Pulliam Globulin (S) [Mass/Vol] 2.6 g/dL Normal [facility] Comment on above: Performed By: #### C MP, BNP, CMADM ####[facility] Namjsbluls5705 [place] [address]Dr. Garima Pulliam Glucose [Mass/Vol] 103 mg/dL Normal 74-106 The [facility] Comment on above: Performed By: #### C MP, BNP, CMADM ####[facility] Kstkchrigc2438 [place] [address]Dr. Garima Pulliam Potassium [Moles/Vol] 3.8 mmol/L Normal 3.5-5.[address] [facility] Comment on above: Performed By: #### C MP, BNP, CMADM ####[facility] Mobvopmama9997 [place] [address]Dr. Garima Pulliam Protein [Mass/Vol] 6.4 g/dL Normal 6.4-8.2 [facility] Comment on above: Performed By: #### C MP, BNP, CMADM ####[facility] Gxdeokltje5218 [place] [address]Dr. Garima Pulliam Sodium [Moles/Vol] 139 mmol/L Normal 136-145 [facility] Comment on above: Performed By: #### C MP, BNP, CMADM ####[facility] Jervsdejkj4475 [place] [address]Dr. Garima Pulliam Urea nitrogen [Mass/Vol] 7.0 mg/dL Normal 7.0-18.[address] [facility] Comment on above: Performed By: #### C MP, BNP, CMADM ####[facility] Gxjcvpjthi2151 [place] [address]Dr. Garima Pulliam Urea nitrogen/Creatinine [Mass ratio] 11.1 mg/mg Normal [facility] Comment on above: Performed By: #### C MP, BNP, CMADM ####[facility] Gthjlltczl3275 [place] [address]Dr. Garima Pulliam PROTIMEon 09-29-2022 INR Coag (PPP) [Relative time] 1.14 {INR} Normal [facility] Comment on above: Performed By: #### P T, PTT ####[facility] [address]vqedemclj[address] [place], [place] [address]Dr. Garima Pulliam INR GUIDELINES SEE BELOW Normal The [facility] Comment on above: Result Comment: WESLEY RED INR: 2.0 - 3.0 CONDITIONS NOT LISTED BELOW 2.5 - 3.5 FOR PROSTHETIC HEART VALVE REPLACEMENT 2.5 - 3.5 RECURRENT THROMBOSIS Performed By: #### P T, PTT ####[facility] Chdfntjwrz[address] [place], [place] [address]Dr. Garima Pulliam PT Coag (PPP) [Time] 12.2 s Critically high 9.0-11.[address] [facility] Comment on above: Performed By: #### P T, PTT ####[facility] Dypbjvqqyh[address] [place], [place] [address]Dr. Garima Pulliam PTTon 09-29-2022 aPTT Coag (Bld) [Time] 29.3 s Normal 22.3-36.[address] [facility] Comment on above: Performed By: #### P T, PTT ####[facility] Hmynxdofix[address] [place], [place] [address]Dr. Garima Pulliam XR CHEST 1 Von 09-29-2022 XR CHEST [address] [facility] CBC AUTO DIFFon 09-26-2022 BASO # 0.0 103/ul Normal 0.0-0.[address] [facility] Comment on above: Performed By: #### C BC ####[facility] Ybjjsztsys[address] [place], [place] [address]Dr. Garima Pulliam Basophils/100 WBC (Bld) 0.2 % Normal 0.2-2.[address] [facility] Comment on above: Performed By: #### C BC ####[facility] Cezromiwri55[address] [place], [place] [address]Dr. Garima Pullaim EO # 0.1 103/ul Normal 0.0-0.7 [facility] Comment on above: Performed By: #### C BC ####[facility] Vrqsiplblt10[address] [place], [place] [address]Dr. Garima Pulliam Eosinophils/100 WBC (Bld) 1.0 % Normal 0.9-7.0 [facility] Comment on above: Performed By: #### C BC ####[facility] Yejqvrgmuf8[address] [place], [place] [address]Dr. Garima Pulliam Erythrocyte distribution width (RBC) [Ratio] 13.4 % Normal 11.0-15.0 [facility] Comment on above: Performed By: #### C BC ####[facility] Payelvpnwz40[address] [place], [place] [address]Dr. Garima Pulliam Hematocrit (Bld) [Volume fraction] 46.3 % Normal 42.0-54.0 [facility] Comment on above: Performed By: #### C BC ####[facility] Ebatlbbosk8[address] [place], [place] [address]Dr. Garima Pulliam Hemoglobin (Bld) [Mass/Vol] 15.3 g/dL Normal 14.0-18.[address] [facility] Comment on above: Performed By: #### C BC ####[facility] Lvjdbjgzsk5[address] [place], [place] [address]Dr. Garima Pulliam IG # 0.05 10e3/ul Critically high 0.00-0.03 [facility] Comment on above: Performed By: #### C BC ####[facility] Ffxhzwoupf83[address] [place], [place] [address]Dr. Garima Pulliam IG % 0.4 % Normal 0.0-0.[address] [facility] Comment on above: Performed By: #### C BC ####[facility] Lryizonojx24[address] [place], [place] [address]Dr. Garima Pulliam LYMPH # 1.7 103/ul Normal 1.2-3.[address] [facility] Comment on above: Performed By: #### C BC ####[facility] Xosocdneas[address] [place], [place] [address]Dr. Garima Pulliam Lymphocytes/100 WBC (Bld) 12.7 % Critically low 20.5-60.[address] [facility] Comment on above: Performed By: #### C BC ####[facility] Ajbdcgbvkj5163 [place] [address]DrAdalberto Pulliam MANUAL DIFF REQ NO Normal [facility] Comment on above: Performed By: #### C BC ####[facility] Vndrsuiidf6349 [place] [address]Dr. Garima Pulliam MCH (RBC) [Entitic mass] 30.1 pg Normal 25.9-34.[address] [facility] Comment on above: Performed By: #### C BC ####[facility] Dtiewanpxn[address] [place], [place] [address]Dr. Garima Pulliam MCHC (RBC) [Mass/Vol] 33.0 g/dL Normal 29.9-35.[address] [facility] Comment on above: Performed By: #### C BC ####[facility] Svdpqyygxz[address] [place], [place] [address]DrAdalberto Pulliam MCV (RBC) [Entitic vol] 91.1 fL Normal 80.0-94.[address] [facility] Comment on above: Performed By: #### C BC ####[facility] Xkylxbxbmh47[address] [place], [place] [address]DrAdalberto Pulliam MONO # 0.9 103/ul Critically high 0.3-0.8 [facility] Comment on above: Performed By: #### C BC ####[facility] Opkrhjqnwm[address] [place], [place] [address]DrAdalberto Pulliam Monocytes/100 WBC (Bld) 7.0 % Normal 1.7-12.[address] [facility] Comment on above: Performed By: #### C BC ####[facility] Pnjutdclsk[address] [place], [place] [address]DrAdalberto Pulliam NEUT # 10.4 103/ul Critically high 1.4-6.[address] [facility] Comment on above: Performed By: #### C BC ####[facility] Wjgtrkhujt084[address] [place], [place] [address]DrAdalberto Pulliam Neutrophils/100 WBC (Bld) 78.7 % Critically high 43.0-75.0 [facility] Comment on above: Performed By: #### C BC ####[facility] Uwovjwkhgt6884 [place] [address]Dr. Garima Pulliam Platelet mean volume (Bld) [Entitic vol] 8.9 fL Critically low 9.5-13.[address] [facility] Comment on above: Performed By: #### C BC ####[facility] Eggeeijztb5[address] [place] [address]Dr. Garima Pulliam PLT 195 103/ul Normal 150-[address] [facility] Comment on above: Performed By: #### C BC ####[facility] Imctzkumwq37[address] [place], [place] [address]Dr. Garima Pulliam RBC 5.08 106/ul Normal 4.70-6.[address] [facility] Comment on above: Performed By: #### C BC ####[facility] Xhuxmzbrji7[address] [place], [place] [address]Dr. Garima Pulliam WBC 13.2 103/ul Critically high 4.0-11.[address] [facility] Comment on above: Performed By: #### C BC ####[facility] Ysgbrnyjwt[address] [place], [place] [address]Dr. Garima Pulliam PROF 14(COMP METB)on 022 Albumin [Mass/Vol] 3.5 g/dL Normal 3.4-5.0 [facility] Comment on above: Performed By: #### C DAVID HSTROPN ####[facility] Pzaavrsrph4[address] [place] [address]Dr. Garima Pulliam Albumin/Globulin [Mass ratio] 1.2 {ratio} Normal [facility] Comment on above: Performed By: #### C RAFAT HERNANDEZTROPN ####[facility] Mrqoytisob7234 [place] [address]Dr. Garima Pulliam ALP [Catalytic activity/Vol] 71 U/L Normal 46-[address] [facility] Comment on above: Performed By: #### C DAVID HSTROPN ####[facility] Uaeeiomuql5726 [place] [address]Dr. Garima Pulliam ALT [Catalytic activity/Vol] 37 U/L Normal 16-[address] [facility] Comment on above: Performed By: #### C DAVID, HSTROPN ####[facility] Fzvigfmyco7668 [place] [address]Dr. Garima Pulliam Anion gap [Moles/Vol] 4.8 mmol/L Normal [facility] Comment on above: Performed By: #### C DAVID, HSTROPN ####[facility] Fwwmatlwux[address] [place], [place] [address]Dr. Garima Pulliam AST [Catalytic activity/Vol] 21 U/L Normal 15-[address] [facility] Comment on above: Performed By: #### C DAVID, HSTROPN ####[facility] Z[address]hdvsavx[address] [place], [place] [address]Dr. Garima Pulliam Bilirubin [Mass/Vol] 0.3 mg/dL Normal 0.2-1.[address] [facility] Comment on above: Performed By: #### C DAVID, HSTROPN ####[facility] Fdjcyntzpr2434 [place] [address]Dr. Garima Pulliam Calcium [Mass/Vol] 8.9 mg/dL Normal 8.5-10.1 [facility] Comment on above: Performed By: #### C DAVID, HSTROPN ####[facility] Qzultqermp9955 [place] [address]Dr. Garima Pulliam Chloride [Moles/Vol] 106 mmol/L Normal 98-[address] [facility] Comment on above: Performed By: #### C DAVID, HSTROPN ####[facility] Qssefukcip6157 [place] [address]Dr. Garima Pulliam CO2 [Moles/Vol] 29.8 mmol/L Normal 21.0-32.[address] [facility] Comment on above: Performed By: #### C DAVID, HSTROPN ####[facility] Pmgfqhhoat8250 [place] [address]Dr. Garima Pulliam Creatinine [Mass/Vol] 0.68 mg/dL Critically low 0.70-1.30 [facility] Comment on above: Performed By: #### C MP, HSTROPN ####[facility] Ifylwpdoft0575 [place] [address]Dr. Garima Pulliam EGFR-AF AUSTRIAN >60 Normal >=[address] [facility] Comment on above: Performed By: #### C MP, HSTROPN ####[facility] Ndonanjjrs2687 [place] [address]Dr. Chapislan Pulliam EGFR-NON AF AUSTRIAN >60 Normal >=60 [facility] Comment on above: Performed By: #### C MP, HSTROPN ####[facility] Qdquckhlks9674 [place] [address]Dr. Garima Pulliam Globulin (S) [Mass/Vol] 2.8 g/dL Normal [facility] Comment on above: Performed By: #### C MP, HSTROPN ####[facility] Stgwrtuyxi6607 [place] [address]Dr. Garima Pulliam Glucose [Mass/Vol] 133 mg/dL Critically high 74-106 [facility] Comment on above: Performed By: #### C MP, HSTROPN ####[facility] Ieyodznfue8881 [place] [address]Dr. Chapisrenu Pulliam Potassium [Moles/Vol] 3.6 mmol/L Normal 3.5-5.1 [facility] Comment on above: Performed By: #### C MP, HSTROPN ####[facility] Rqfvtcexuv5872 [place] [address]Dr. Chapisrenu Pulliam Protein [Mass/Vol] 6.3 g/dL Critically low 6.4-8.2 Th [facility] Comment on above: Performed By: #### C MP, HSTROPN ####[facility] Xgyycgcvsa[address] [place], [place] [address]Dr. Chapisrenu Pulliam Sodium [Moles/Vol] 137 mmol/L Normal 136-145 [facility] Comment on above: Performed By: #### C MP, HSTROPN ####[facility] Tekuoaxunx[address] [place], [place] [address]Dr. Garima Pulliam Urea nitrogen [Mass/Vol] 15.0 mg/dL Normal 7.0-18.[address] [facility] Comment on above: Performed By: #### C DAVID HSTROPN ####[facility] Zhfklcnfos1606 [place] [address]Dr. Chapisrenu Pulliam Urea nitrogen/Creatinine [Mass ratio] 22.1 mg/mg Normal [facility] Comment on above: Performed By: #### C DAVID HSTROPN ####[facility] Hlyzreapzo1438 [place] [address]Dr. Garima Heraclio TROPONIN, HIGH SENSITIVITYon 09-26-2022 HSTROP 12.8 pg/mL Normal 4.0-76.[address] [facility] Comment on above: Result Comment: CUT- OFF POINTS HAVE BEEN ESTABLISHED BASED ON THE FOURTH UNIVERSAL DEFINITIONS OF MYOCARDIALINFARCTION. THE UPPER REFERENCE LIMIT (URL) OF TROPONIN, DEFINED THE 99TH PERCENTILE OFcTnI DISTRIBUTION IN A REFERENCE POPULATION, HAS BEEN CONFIRMED THE DECISION THRESHOLDFOR OK DIAGNOSIS. Performed By: #### C DAVID HSTROPN ####[facility] Zadfmhgruo24[address] [place] [address]Dr. Chapisrenu Pulliam XR CHEST 1 Von 09-26-2022 XR CHEST [address] [facility] XR CHEST 1 Von 09-16-2022 XR CHEST [address] [facility] CBC AUTO DIFFon 09-15-2022 BASO # 0.0 103/ul Normal 0.0-0.[address] [facility] Comment on above: Performed By: #### C BC ####[facility] Ddgmtmcgwn8525 [place] [address]Dr. Garima Heraclio Basophils/100 WBC (Bld) 0.1 % Critically low 0.2-2.[address] [facility] Comment on above: Performed By: #### C BC ####[facility] Gyrwgftpny1270 [place] [address]Dr. Garima Pulliam EO # 0.0 103/ul Normal 0.0-0.[address] [facility] Comment on above: Performed By: #### C BC ####[facility] Szicpgumfy0180 [place] [address]Dr. Garima Pulliam Eosinophils/100 WBC (Bld) 0.1 % Critically low 0.9-7.[address] [facility] Comment on above: Performed By: #### C BC ####[facility] Tfrpzpckbd2336 [place] [address]Dr. Garima Pulliam Erythrocyte distribution width (RBC) [Ratio] 14.1 % Normal 11.0-15.[address] [facility] Comment on above: Performed By: #### C BC ####[facility] [address]ofhgwbh[address] [place], [place] [address]Dr. Garima Pulliam Hematocrit (Bld) [Volume fraction] 46.1 % Normal 42.0-54.[address] [facility] Comment on above: Performed By: #### C BC ####[facility] [address]obqrbcm[address] [place], [place] [address]Dr. Garima Pulliam Hemoglobin (Bld) [Mass/Vol] 15.0 g/dL Normal 14.0-18.[address] [facility] Comment on above: Performed By: #### C BC ####[facility] Gmqngfpqwg[address] [place], [place] [address]Dr. Garima Pulliam IG # 0.03 10e3/ul Normal 0.00-0.[address] [facility] Comment on above: Performed By: #### C BC ####[facility] [address]zrqucvzvc[address] [place], [place] [address]Dr. Garima Pulliam IG % 0.3 % Normal 0.0-0.[address] [facility] Comment on above: Performed By: #### C BC ####[facility] [address]yravyuv[address] [place], [place] [address]Dr. Garima Pulliam LYMPH # 0.6 103/ul Critically low 1.2-3.8 The [facility] Comment on above: Performed By: #### C BC ####[facility] Wunxmvjroo[address] [place], [place] [address]Dr. Garima Pulliam Lymphocytes/100 WBC (Bld) 5.8 % Critically low 20.5-60.[address] [facility] Comment on above: Performed By: #### C BC ####[facility] Xjospqfkrr1000 [place] [id number]. Garima Pulliam MANUAL DIFF REQ NO Normal [facility] Comment on above: Performed By: #### C BC ####[facility] Lvsqnrsqns4880 [place] [id number]. Garima Pulliam MCH (RBC) [Entitic mass] 30.2 pg Normal 25.9-34.[address] [facility] Comment on above: Performed By: #### C BC ####[facility] Uicedqsrpj07[address] [place] [address]Dr. Garima Pulliam MCHC (RBC) [Mass/Vol] 32.5 g/dL Normal 29.9-35.[address] [facility] Comment on above: Performed By: #### C BC ####[facility] Megjmlkxlo4027 [place] [address]Dr. Garima Pulliam MCV (RBC) [Entitic vol] 92.8 fL Normal 80.0-94.[address] [facility] Comment on above: Performed By: #### C BC ####[facility] Ieqmhevlst2664 [place] [address]Dr. Garima Heraclio MONO # 0.3 103/ul Normal 0.3-0.[address] [facility] Comment on above: Performed By: #### C BC ####[facility] Kpfphbhyib4346 [place] [id number]. Garima Heraclio Monocytes/100 WBC (Bld) 3.2 % Normal 1.7-12.[address] [facility] Comment on above: Performed By: #### C BC ####[facility] Pondgymlkz7611 [place] [id number]. Garima Pulliam NEUT # 9.8 103/ul Critically high 1.4-6.5 [facility] Comment on above: Performed By: #### C BC ####[facility] Offueauivr9212 [place] [id number]. Garima Pulliam Neutrophils/100 WBC (Bld) 90.5 % Critically high 43.0-75.[address] [facility] Comment on above: Performed By: #### C BC ####[facility] Jlqdooudxl4570 [place] [id number]. Garima Pulliam Platelet mean volume (Bld) [Entitic vol] 9.4 fL Critically low 9.5-13.[address] [facility] Comment on above: Performed By: #### C BC ####[facility] Jorknxvlzd0981 [place] [id number]. Garima Pulliam PLT 208 103/ul Normal 150-[address] [facility] Comment on above: Performed By: #### C BC ####[facility] Mjdcwzuskt0992 [place] [address]Dr. Garima Pulliam RBC 4.97 106/ul Normal 4.70-6.[address] [facility] Comment on above: Performed By: #### C BC ####[facility] Brbgvyvuie9602 [place] [address]Dr. Garima Pulliam WBC 10.8 103/ul Normal 4.0-11.[address] [facility] Comment on above: Performed By: #### C BC ####[facility] Sdsxmhblif6411 [place] [address]Dr. Garima Pulliam PROF 14(COMP METB)on 022 Albumin [Mass/Vol] 4.0 g/dL Normal 3.4-5.0 [facility] Comment on above: Performed By: #### C MP ####[facility] Faynambyvv8236 [place] [address]Dr. Garima Pulliam Albumin/Globulin [Mass ratio] 1.5 {ratio} Normal [facility] Comment on above: Performed By: #### C MP ####[facility] Awbtrdahqc1666 [place] [address]Dr. Garima Pulliam ALP [Catalytic activity/Vol] 73 U/L Normal 46-[address] [facility] Comment on above: Performed By: #### C MP ####[facility] Ajdmhdelvm4003 [place] [address]Dr. Garima Pulliam ALT [Catalytic activity/Vol] 42 U/L Normal 16-[address] [facility] Comment on above: Performed By: #### C MP ####[facility] Btcwypkjte4885 [place] [address]Dr. Garima Pulliam Anion gap [Moles/Vol] 9.1 mmol/L Normal [facility] Comment on above: Performed By: #### C MP ####[facility] Eecjtmnolm[address] [place], [place] [address]Dr. Garima Pulliam AST [Catalytic activity/Vol] 28 U/L Normal 15-[address] [facility] Comment on above: Performed By: #### C MP ####[facility] Zjgxhmozxu[address] [place], [place] [address]Dr. Garima Pulliam Bilirubin [Mass/Vol] 0.6 mg/dL Normal 0.2-1.[address] [facility] Comment on above: Performed By: #### C MP ####[facility] Fiotntojac[address] [place], [place] [address]Dr. Garima Pulliam Calcium [Mass/Vol] 8.6 mg/dL Normal 8.5-10.1 The [facility] Comment on above: Performed By: #### C MP ####[facility] Ilsganbiec[address] [place], [place] [address]Dr. Garima Pulliam Chloride [Moles/Vol] 105 mmol/L Normal 98-[address] [facility] Comment on above: Performed By: #### C MP ####[facility] Bquqwyahmt[address] [place], [place] [address]Dr. Garima Pulliam CO2 [Moles/Vol] 28.5 mmol/L Normal 21.0-32.[address] [facility] Comment on above: Performed By: #### C MP ####[facility] Yhjtzsypml5[address] [place], [place] [address]Dr. Garima Heraclio Creatinine [Mass/Vol] 0.78 mg/dL Normal 0.70-1.[address] [facility] Comment on above: Performed By: #### C MP ####[facility] Tbbkmnoucg[address] [place], [place] [address]Dr. Chapisrenu Heraclio EGFR-AF AUSTRIAN >60 Normal >=[address] [facility] Comment on above: Performed By: #### C MP ####[facility] Laopxihstu[address] [place], [place] [address]Dr. Garima Pulliam EGFR-NON AF AUSTRIAN >60 Normal >=60 [facility] Comment on above: Performed By: #### C MP ####[facility] Yhwidtlhxn1819 [place] [address]Dr. Garima Pulliam Globulin (S) [Mass/Vol] 2.7 g/dL Normal [facility] Comment on above: Performed By: #### C MP ####[facility] Oeocydjhok6127 [place] [address]Dr. Garima Pulliam Glucose [Mass/Vol] 220 mg/dL Critically high 74-[address] [facility] Comment on above: Performed By: #### C MP ####[facility] Cngkirlewv7902 [place] [address]Dr. Garima Pulliam Potassium [Moles/Vol] 3.6 mmol/L Normal 3.5-5.1 [facility] Comment on above: Performed By: #### C MP ####[facility] Gzybwhjyfx[address] [place], [place] [address]Dr. Garima Pulliam Protein [Mass/Vol] 6.7 g/dL Normal 6.4-8.2 [facility] Comment on above: Performed By: #### C MP ####[facility] Sltvqvemrd26[address] [place], [place] [address]Dr. Garima Pulliam Sodium [Moles/Vol] 139 mmol/L Normal 136-145 [facility] [place] [facility] Comment on above: Performed By: #### C MP ####[facility] Atvvfrhpez[address] [place], [place] [address]Dr. Garima Pulliam Urea nitrogen [Mass/Vol] 11.0 mg/dL Normal 7.0-18.0 [facility] Comment on above: Performed By: #### C MP ####[facility] Mvwynsxwhr[address] [place], [place] [address]Dr. Garima Pulliam Urea nitrogen/Creatinine [Mass ratio] 14.1 mg/mg Normal [facility] Comment on above: Performed By: #### C MP ####[facility] Lkyenyaeyj[address] [place], [place] [address]Dr. Garima Pulliam CARDIAC NASH 3-6on 2 CK [Catalytic activity/Vol] 240 U/L Normal 39-308 [facility] Comment on above: Performed By: #### C MREP ####[facility] Yyzgksxuky3192 [place] [address]Dr. Garima Pulliam CK.MB [Mass/Vol] 10.38 ng/mL Critically high <=3.60 Th [facility] Comment on above: Performed By: #### C MREP ####[facility] Tjxkvymece3592 [place] [address]Dr. Garima Pulliam HSTROP 18.5 pg/mL Normal 4.0-76.1 [facility] Comment on above: Result Comment: CUT- OFF POINTS HAVE BEEN ESTABLISHED BASED ON THE FOURTH UNIVERSAL DEFINITIONS OF MYOCARDIALINFARCTION. THE UPPER REFERENCE LIMIT (URL) OF TROPONIN, DEFINED THE 99TH PERCENTILE OFcTnI DISTRIBUTION IN A REFERENCE POPULATION, HAS BEEN CONFIRMED THE DECISION THRESHOLDFOR OK DIAGNOSIS. Performed By: #### C MREP ####[facility] Nmcwsrusto3479 [place] [address]Dr. Garima Pulliam CK [Catalytic activity/Vol] 257 U/L Normal 39-308 [facility] Comment on above: Performed By: #### C MREP ####[facility] Ctqjdaouml[address] [place], [place] [address]Dr. Garima Pulliam CK.MB [Mass/Vol] 9.89 ng/mL Critically high <=3.60 [facility] Comment on above: Performed By: #### C MREP ####[facility] Iimlkfmmbw[address] [place], [place] [address]Dr. Garima Pulliam HSTROP 16.9 pg/mL Normal 4.0-76.1 [facility] Comment on above: Result Comment: CUT- OFF POINTS HAVE BEEN ESTABLISHED BASED ON THE FOURTH UNIVERSAL DEFINITIONS OF MYOCARDIALINFARCTION. THE UPPER REFERENCE LIMIT (URL) OF TROPONIN, DEFINED THE 99TH PERCENTILE OFcTnI DISTRIBUTION IN A REFERENCE POPULATION, HAS BEEN CONFIRMED THE DECISION THRESHOLDFOR OK DIAGNOSIS. Performed By: #### C MREP ####[facility] Pwmzoepkca1825 [place] [address]Dr. Garima Heraclio CBC AUTO DIFFon 10-22-2022 BASO # 0.0 103/ul Normal 0.0-0.[address] [facility] Comment on above: Performed By: #### C BC ####[facility] Lrkmhujugq6044 [place] [id number]. Garima Pulliam Basophils/100 WBC (Bld) 0.1 % Critically low 0.2-2.[address] [facility] Comment on above: Performed By: #### C BC ####[facility] Rarglsvagz0496 [place] [address]Dr. Garima Pulliam EO # 0.0 103/ul Normal 0.0-0.[address] [facility] Comment on above: Performed By: #### C BC ####[facility] Hopkqfajoi[address] [place], [place] [address]Dr. Chapisrenu Heraclio Eosinophils/100 WBC (Bld) 0.0 % Critically low 0.9-7.[address] [facility] Comment on above: Performed By: #### C BC ####[facility] Jviogygibf[address] [place], [place] [address]Dr. Garima Pulliam Erythrocyte distribution width (RBC) [Ratio] 13.6 % Normal 11.0-15.[address] [facility] Comment on above: Performed By: #### C BC ####[facility] Yaoddqzmkb390[address] [place], [place] [address]Dr. Garima Pulliam Hematocrit (Bld) [Volume fraction] 48.2 % Normal 42.0-54.[address] [facility] Comment on above: Performed By: #### C BC ####[facility] Wrgphkguea9[address] [place], [place] [address]Dr. Garima Pulliam Hemoglobin (Bld) [Mass/Vol] 16.0 g/dL Normal 14.0-18.[address] [facility] Comment on above: Performed By: #### C BC ####[facility] Udzecqvfsr199[address] [place], [place] [address]Dr. Chapisrenu Heraclio IG # 0.02 10e3/ul Normal 0.00-0.[address] [facility] Comment on above: Performed By: #### C BC ####[facility] Hjxsexxlet3295 [place] [id number]. Garima Pulliam IG % 0.3 % Normal 0.0-0.[address] [facility] Comment on above: Performed By: #### C BC ####[facility] Dyirbmezez7495 [place] [address]Dr. Garima Heraclio LYMPH # 0.5 103/ul Critically low 1.2-3.8 The [facility] Comment on above: Performed By: #### C BC ####[facility] Qqcjozzybz4911 [place] [address]Dr. Garima Heraclio Lymphocytes/100 WBC (Bld) 7.7 % Critically low 20.5-60.[address] [facility] Comment on above: Performed By: #### C BC ####[facility] Vtjwpzspbc[address] [place], [place] [address]Dr. Chapisrenu Pulliam MANUAL DIFF REQ NO Normal [facility] Comment on above: Performed By: #### C BC ####[facility] Hldctxnrtf[address] [place], [place] [address]Dr. Garima Heraclio MCH (RBC) [Entitic mass] 30.6 pg Normal 25.9-34.[address] [facility] Comment on above: Performed By: #### C BC ####[facility] Ffyxtnfgej38[address] [place], [place] [address]Dr. Garima Pulliam MCHC (RBC) [Mass/Vol] 33.2 g/dL Normal 29.9-35.[address] [facility] Comment on above: Performed By: #### C BC ####[facility] Beifxqugqb64[address] [place], [place] [address]Dr. Garima Heraclio MCV (RBC) [Entitic vol] 92.2 fL Normal 80.0-94.[address] [facility] Comment on above: Performed By: #### C BC ####[facility] Dpvcotcwar7[address] [place], [place] [address]Dr. Garima Pulliam MONO # 0.0 103/ul Critically low 0.3-0.8 The [facility] Comment on above: Performed By: #### C BC ####[facility] Rgfepgbuih7338 [place] [id number]. Garima Pulliam Monocytes/100 WBC (Bld) 0.4 % Critically low 1.7-12.[address] [facility] Comment on above: Performed By: #### C BC ####[facility] Tsmouzqwiy6474 [place] [address]Dr. Garima Pulliam NEUT # 6.2 103/ul Normal 1.4-6.[address] [facility] Comment on above: Performed By: #### C BC ####[facility] Xabzodazsz2782 [place] [address]Dr. Garima Pulliam Neutrophils/100 WBC (Bld) 91.5 % Critically high 43.0-75.[address] [facility] Comment on above: Performed By: #### C BC ####[facility] Kxztlgabwu5965 [place] [address]Dr. Garima Pulliam Platelet mean volume (Bld) [Entitic vol] 8.7 fL Critically low 9.5-13.[address] [facility] Comment on above: Performed By: #### C BC ####[facility] Bnodhduaxh0559 [place] [address]Dr. Garima Pulliam PLT 179 103/ul Normal 150-[address] [facility] Comment on above: Performed By: #### C BC ####[facility] Xpytkomwqe5374 [place] [id number]. Garima Pulliam RBC 5.23 106/ul Normal 4.70-6.[address] [facility] Comment on above: Performed By: #### C BC ####[facility] Icxcitmfgn9654 [place] [address]Dr. Garima Pulliam WBC 6.7 103/ul Normal 4.0-11.[address] [facility] Comment on above: Performed By: #### C BC ####[facility] Wrwzpfggif3503 [place] [address]Dr. Garima Pulliam PROF CHEM 8 (BAS METB)on Anion gap [Moles/Vol] 12.1 mmol/L Normal Th [facility] Comment on above: Performed By: #### B MP ####[facility] Bcxaoknuxf0674 [place] [id number]. Garima Pulliam Calcium [Mass/Vol] 8.7 mg/dL Normal 8.5-10.1 The [facility] Comment on above: Performed By: #### B MP ####[facility] Teiugkorlx1712 [place] [id number]. Garima Pulliam Chloride [Moles/Vol] 105 mmol/L Normal 98-107 [facility] Comment on above: Performed By: #### B MP ####[facility] Humgavteup5925 [place] [id number]. Garima Pulliam CO2 [Moles/Vol] 25.5 mmol/L Normal 21.0-32.[address] [facility] Comment on above: Performed By: #### B MP ####[facility] Awbnmbdxzk6677 [place] [address]Dr. Garima Pulliam Creatinine [Mass/Vol] 0.63 mg/dL Critically low 0.70-1.30 [facility] Comment on above: Performed By: #### B MP ####[facility] Scezajioxu1867 [place] [address]Dr. Garima Pulliam EGFR-AF AUSTRIAN >60 Normal >=[address] [facility] Comment on above: Performed By: #### B MP ####[facility] Byjagkzqbk7433 [place] [address]Dr. Garima Pulliam EGFR-NON AF AUSTRIAN >60 Normal >=60 [facility] Comment on above: Performed By: #### B MP ####[facility] Vtiikogwck6174 [place] [address]Dr. Garima Pulliam Glucose [Mass/Vol] 162 mg/dL Critically high 74-106 [facility] Comment on above: Performed By: #### B MP ####[facility] [address]scyrfhyjo[address] [place], [place] [address]Dr. Garima Pulliam Potassium [Moles/Vol] 3.6 mmol/L Normal 3.5-5.[address] [facility] Comment on above: Performed By: #### B MP ####[facility] Uapiwyyrtf[address] [place], [place] [address]Dr. Garima Pulliam Sodium [Moles/Vol] 139 mmol/L Normal 136-145 [facility] Comment on above: Performed By: #### B DAVID ####[facility] Hdszbemuyx1146 [place] [address]Dr. Garima Pulliam Urea nitrogen [Mass/Vol] 9.0 mg/dL Normal 7.0-18.0 [facility] Comment on above: Performed By: #### B DAVID ####[facility] Gltdrhlbus0838 [place] [address]Dr. Garima Pulliam Urea nitrogen/Creatinine [Mass ratio] 14.3 mg/mg Normal [facility] Comment on above: Performed By: #### B DAVID ####[facility] Tcvakcguwl1007 [place] [address]Dr. Chapisrenu Pulliam CARDIAC NASH ADMITon 09-12- 022 CK [Catalytic activity/Vol] 304 U/L Normal 39-308 [facility] Comment on above: Performed By: #### B NANCY HERNANDEZ ####[facility] Qnyaibvrjg7378 [place] [address]Dr. Garima Pulliam CK.MB [Mass/Vol] 11.81 ng/mL Critically high <=3.60 Th [facility] Comment on above: Performed By: #### B NANCY HERNANDEZ ####[facility] Rpdlpcptwh6001 [place] [address]Dr. Garima Heraclio HSTROP 13.3 pg/mL Normal 4.0-76.1 [facility] Comment on above: Result Comment: CUT- OFF POINTS HAVE BEEN ESTABLISHED BASED ON THE FOURTH UNIVERSAL DEFINITIONS OF MYOCARDIALINFARCTION. THE UPPER REFERENCE LIMIT (URL) OF TROPONIN, DEFINED THE 99TH PERCENTILE OFcTnI DISTRIBUTION IN A REFERENCE POPULATION, HAS BEEN CONFIRMED THE DECISION THRESHOLDFOR OK DIAGNOSIS. Performed By: #### B NANCY HERNANDEZ ####[facility] Freftmnwwc3785 [place] [address]Dr. Garima Pulliam DORIS 133 ng/mL Critically high 16-96 [facility] Comment on above: Performed By: #### B NANCY HERNANDEZ ####[facility] Gonomkkmpl7509 [place] [address]Dr. Garima Pulliam CBC AUTO DIFFon 09-12-2022 BASO # 0.0 103/ul Normal 0.0-0.[address] [facility] Comment on above: Performed By: #### C BC ####[facility] Y[address]whfs[address] [place], [place] [address]Dr. Garima Heraclio Basophils/100 WBC (Bld) 0.2 % Normal 0.2-2.[address] [facility] Comment on above: Performed By: #### C BC ####[facility] Vxbsyxdxqi[address] [place], [place] [address]Dr. Garima Heraclio EO # 0.2 103/ul Normal 0.0-0.[address] [facility] Comment on above: Performed By: #### C BC ####[facility] Wdgtzhibsn[address] [place], [place] [address]Dr. Chapisrenu Pulliam Eosinophils/100 WBC (Bld) 1.3 % Normal 0.9-7.[address] [facility] Comment on above: Performed By: #### C BC ####[facility] Oizueffqxe51[address] [place], [place] [address]Dr. Garima Pulliam Erythrocyte distribution width (RBC) [Ratio] 13.7 % Normal 11.0-15.0 [facility] Comment on above: Performed By: #### C BC ####[facility] Ibzyettvos08[address] [place], [place] [address]Dr. Garima Pulliam Hematocrit (Bld) [Volume fraction] 46.4 % Normal 42.0-54.[address] [facility] Comment on above: Performed By: #### C BC ####[facility] Cnqrzocpbv4[address] [place], [place] [address]Dr. Garima Pulliam Hemoglobin (Bld) [Mass/Vol] 15.7 g/dL Normal 14.0-18.[address] [facility] Comment on above: Performed By: #### C BC ####[facility] C[address]ikcaghwe[address] [place], [place] [address]Dr. Garima Pulliam IG # 0.04 10e3/ul Critically high 0.00-0.03 [facility] Comment on above: Performed By: #### C BC ####[facility] Xcmbodkxzb5949 [place] [address]Dr. Garima Pulliam IG % 0.3 % Normal 0.0-0.5 [facility] Comment on above: Performed By: #### C BC ####[facility] Itnoqftevn4427 [place] [address]Dr. Garima Pulliam LYMPH # 1.7 103/ul Normal 1.2-3.[address] [facility] Comment on above: Performed By: #### C BC ####[facility] Jodrmosxnc2811 [place] [address]Dr. Garima Pulliam Lymphocytes/100 WBC (Bld) 11.5 % Critically low 20.5-60.0 [facility] Comment on above: Performed By: #### C BC ####[facility] Ioekxmpeik5339 [place] [address]Dr. Garima Pulliam MANUAL DIFF REQ NO Normal [facility] Comment on above: Performed By: #### C BC ####[facility] Yxpzzdegqn2158 [place] [address]Dr. Garima Pulliam MCH (RBC) [Entitic mass] 31.0 pg Normal 25.9-34.0 [facility] Comment on above: Performed By: #### C BC ####[facility] Lcncsujhsg4278 [place] [address]Dr. Garima Pulliam MCHC (RBC) [Mass/Vol] 33.8 g/dL Normal 29.9-35.[address] [facility] Comment on above: Performed By: #### C BC ####[facility] Usoeideicc9624 [place] [address]Dr. Garima Pulliam MCV (RBC) [Entitic vol] 91.7 fL Normal 80.0-94.[address] [facility] Comment on above: Performed By: #### C BC ####[facility] Bbpagjgjds9930 [place] [address]Dr. Garima Heraclio MONO # 0.8 103/ul Normal 0.3-0.8 [facility] Comment on above: Performed By: #### C BC ####[facility] Nflcsizfrh6618 [place] [address]Dr. Garima Pulliam Monocytes/100 WBC (Bld) 5.2 % Normal 1.7-12.[address] [facility] Comment on above: Performed By: #### C BC ####[facility] Wwwrggsgwv5109 [place] [address]Dr. Garima Pulliam NEUT # 11.7 103/ul Critically high 1.4-6.[address] [facility] Comment on above: Performed By: #### C BC ####[facility] Tqsizbdatm3878 [place] [address]Dr. Garima Pulliam Neutrophils/100 WBC (Bld) 81.5 % Critically high 43.0-75.[address] [facility] Comment on above: Performed By: #### C BC ####[facility] Lqhcfqabsn6894 [place] [address]Dr. Garima Pulliam Platelet mean volume (Bld) [Entitic vol] 8.6 fL Critically low 9.5-13.[address] [facility] Comment on above: Performed By: #### C BC ####[facility] Eloinpamrs1461 [place] [id number]. Garima Pulliam PLT 191 103/ul Normal 150-[address] [facility] Comment on above: Performed By: #### C BC ####[facility] [address]wiqoncu[address] [place], [place] [address]Dr. Garima Pulliam RBC 5.06 106/ul Normal 4.70-6.[address] [facility] Comment on above: Performed By: #### C BC ####[facility] Lwhirwvwmr[address] [place], [place] [address]Dr. Garima Pulliam WBC 14.4 103/ul Critically high 4.0-11.[address] [facility] Comment on above: Performed By: #### C BC ####[facility] [address]zimsyzgwk[address] [place], [place] [address]Dr. Garima Pulliam [facility]24 SARS-CoV-2 (COVID-19) RNA MARIE+probe Ql (Unsp spec) Not detected Normal NOT DETECTED [facility] Comment on above: Result Comment: When [...] for this test is supported by the [employer] and Human Service's declaration that [...] used). Performed By: #### C VDTBH ####[facility] Flgmbkflig[address] [place], [place] [address]Dr. Garima Pulliam LACTATE/LACTIC ACIDon 2021 Lactate [Moles/Vol] 1.0 mmol/L Normal 0.4-1.9 [facility] Comment on above: Performed By: #### L ACT ####[facility] [address]lgetaqxrm[address] [place], [place] [address]Dr. Garima Pulliam PROF CHEM 8 (BAS METB)on Anion gap [Moles/Vol] 11.6 mmol/L Normal [facility] Comment on above: Performed By: #### B NANCY HERNANDEZ ####[facility] Zaqlkaltgo6372 [place] [address]Dr. Garima Pulliam Calcium [Mass/Vol] 9.2 mg/dL Normal 8.5-10.1 [facility] Comment on above: Performed By: #### B NANCY HERNANDEZ ####[facility] Fcodxitpyd5394 [place] [address]Dr. Garima Pulliam Chloride [Moles/Vol] 105 mmol/L Normal 98-107 [facility] Comment on above: Performed By: #### B MP, CMADM ####[facility] Xxtqjktcsj9119 [place] [id number]. Garima Pulliam CO2 [Moles/Vol] 25.9 mmol/L Normal 21.0-32.[address] [facility] Comment on above: Performed By: #### B DAVID, CMADM ####[facility] Fcsymccbfm5938 [place] [address]Dr. Garima Pulliam Creatinine [Mass/Vol] 0.72 mg/dL Normal 0.70-1.30 [facility] Comment on above: Performed By: #### B DAVID, CMADM ####[facility] Vtfxvmnlof3342 [place] [id number]. Garima Pulliam EGFR-AF AUSTRIAN >60 Normal >=[address] [facility] Comment on above: Performed By: #### B DAVID, CMADM ####[facility] Vhnzahxusj5299 [place] [address]Dr. Chapisrneu Pulliam EGFR-NON AF AUSTRIAN >60 Normal >=60 [facility] Comment on above: Performed By: #### B DAVID, CMAANA ROSA ####[facility] Rhwvafxwzu6466 [place] [address]Dr. Garima Pulliam Glucose [Mass/Vol] 111 mg/dL Critically high 74-106 [facility] Comment on above: Performed By: #### B DAVID, CMADM ####[facility] Gioujwrutx1193 [place] [address]Dr. Chapisrenu Pulliam Potassium [Moles/Vol] 3.5 mmol/L Normal 3.5-5.1 [facility] Comment on above: Performed By: #### B DAVID, CMADM ####[facility] Oqatlcyvns7434 [place] [address]Dr. Chapisrenu Pulliam Sodium [Moles/Vol] 139 mmol/L Normal 136-145 [facility] Comment on above: Performed By: #### B DAVID, CMADM ####[facility] Pmkfwigcbo0589 [place] [address]Dr. Garima Pulliam Urea nitrogen [Mass/Vol] 7.0 mg/dL Normal 7.0-18.0 [facility] Comment on above: Performed By: #### B DAVID, CMADM ####[facility] [address] [place], [place] [address]Qf. Garima Pulliam Urea nitrogen/Creatinine [Mass ratio] 9.7 mg/mg Normal [facility] Comment on above: Performed By: #### B MP, CMADM ####[facility] [address] [place], [place] [address]Eu. Garima Pulliam XR CHEST 1 Von 09-12-2022 XR CHEST [address] [facility] Encounters Encounter Date Encounter Type Care [...] Facility:[facility] Payers Date Payer Category Payer Unknown [id number] 1960 Medicaid [id number] 1960 Unknown [id number] 1960 Unknown [id number] 1955 Unknown [id number] 2.16.84 0.1.481543.3.579.2.593 1954 Unknown [id number] 2.16.84 0.1.678618.3.579.2.593 1954 Unknown [id number] 2.16.84 0.1.256549.3.579.2.593 1954 Unknown [id number] 2.16.84 0.1.752016.3.579.2.593 1954 Unknown [id number] 2.16.84 0.1.050195.3.579.2.593 1954 Unknown [id number] 2.16.84 0.1.801553.3.579.2.593 1954 Unknown [id number] 2.16.84 0.1.725730.3.579.2.593 1954 Unknown [id number] 2.16.84 0.1.700568.3.579.2.593 1954 Unknown [id number] 2.16.84 0.1.676921.3.579.2.593 1954 Unknown [id number] 2.16.84 0.1.497095.3.579.2.593 1954 Unknown [id number] 2.16.84 0.1.156806.3.579.2.593 1954 Unknown [id number] 2.16.84 0.1.127429.3.579.2.593 1954 Unknown [id number] 2.16.84 0.1.628385.3.579.2.593 1954 Unknown [id number] 2.16.84 0.1.294088.3.579.2.593 1954 Unknown [id number] 2.16.84 0.1.251736.3.579.2.593 1954 Unknown [id number] 2.16.84 0.1.721794.3.579.2.593 1954 Unknown [id number] 2.16.84 0.1.536035.3.579.2.593 1954 Unknown [id number] 2.16.84 0.1.354218.3.579.2.593 1954 Unknown [id number] 2.16.84 0.1.217426.3.579.2.593 1954 Unknown [id number] 2.16.84 0.1.979502.3.579.2.593 Summary Purpose Family History No Family History Records Found Advance Directives No Advanced Directives Records Found Additional Source Comments (unrecognized sect ion and content) No Status Records Found INFORMATION SOURCE (unrecogn ized section and content) DATE CREATED AUTHOR 04/08/2023 The [facility] FOR RECORDS PERTAINING TO PATIENTS WHO [...] ON THE PRIMARY CLINICAL RECORDS. [facility]. provides no warranty or guarantee of the accuracy or completeness of information in this document.
--- NOTE | 2024-08-05 02:37 | XR_ITS ---
The [address] [address] Patient Name: CONSTANZA BARRETO MRN: [id number] date: 1955 Sex: M Assigned Patient Location: ER Current Patient Location: ED.MAIN Accession/Order Number: [id number] Exam Date: 08/05/2024 02:58 Report Date: 08/05/2024 04:01 At the request of: KENTRELL CHAPIN Procedure: XR chest 2V EXAM: XR chest 2V CLINICAL HISTORY: Short of breath COMPARISONS: Chest x-ray 05/30/2024; CT chest without 05/27/2024 multiple chest x-rays dating back to 03/27/2021. TECHNIQUE: PA and lateral chest. FINDINGS: CARDIAC SILHOUETTE: Within normal limits. MEDIASTINAL AND HILAR CONTOUR: Within normal limits. PULMONARY PARENCHYMA AND PLEURA: Clear lungs. No consolidation, edema, effusion, or pneumothorax. OSSEOUS STRUCTURES:Remote posttraumatic changes of several posterior ribs with old healed posterior left fourth, fifth, sixth and seventh rib fractures. 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 No acute fractures. Also noted is old healed posterior lateral right ninth rib. OTHER COMMENTS:None. XR/XR chest 2V IMPRESSION: 1. Clear lungs without acute cardiopulmonary findings on x-ray. 2. 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 Old healed posterior lateral right ninth rib fracture. No acute osseous pathology. These changes are chronic and stable dating back to 03/27/2021. Electronically authenticated by: TAPAN JIMENEZ Date: 08/05/2024 04:01
[2024-08-05 02:43] VITALS: O2SAT 93
[2024-08-05 02:47] VITALS: PULSE 84; O2SAT 94
[2024-08-05] MEDS: IPRATROPIUM/ALBUTEROL SULFATE 3 ML AMPUL.NEB IH (02:47)
[2024-08-05 02:56] VITALS: PULSE 78; O2SAT 98
== END 2024-08-05 04:15 | disposition home or self-care (01) ==
PROVIDERS: Emergency Provider Internal Medicine
DX: J44.9 Chronic obstructive pulmonary disease, unspecified (principal); F17.200 Nicotine dependence, unspecified, uncomplicated
CPT/HCPCS: 71046; 94640; 99283

== ENCOUNTER 2024-08-07 17:07 | Emergency (ER) | payer MEDICARE, SELFPAY ==
[2024-08-07 17:09] VITALS: BP 166/88; PULSE 88; TEMP 36.9; O2SAT 94
--- OUTSIDE RECORDS SUMMARY | 2024-08-07 17:12 | XMS_ITS | CCD ---
Author Organization [facility] CliniSymo Care Team Providers Care Digital Controls Technical Officer Name Role Phone REQUEST, DR NONE LISTED [...] (1 source) Penicillin Drug Allergy [facility] Repository Problems Active Problems Problem [...] Other roasterman (current) drug therapy; Translations: [OTH GROUP HOME [...] # 0.0 103/ul Normal 0.0-0.1 [facility] Comment on above: Performed By: #### C BC ####[facility] [address]brfzhvtxo[address] [place] [address]Dr. Garima Pulliam Basophils/100 WBC (Bld) 0.3 % Normal 0.2-2.0 [facility] Comment on above: Performed By: #### C BC ####[facility] Egogvnfvom3228 [place] [address]DrAdalberto Pulliam EO # 0.3 103/ul Normal 0.0-0.7 [facility] Comment on above: Performed By: #### C BC ####[facility] Cvdkqvvxdq[address] [place], [place] [address]Dr. Garima Pulliam Eosinophils/100 WBC (Bld) 2.8 % Normal 0.9-7.0 [facility] Comment on above: Performed By: #### C BC ####[facility] Cmjqodyirn08[address] [place] [address]Dr. Garima Pulliam Erythrocyte distribution width (RBC) [Ratio] 13.4 % Normal 11.0-15.0 [facility] Comment on above: Performed By: #### C BC ####[facility] Fvzvrjqdte3[address] [place] [address]Dr. Garima Pulliam Hematocrit (Bld) [Volume fraction] 45.7 % Normal 42.0-54.0 [facility] Comment on above: Performed By: #### C BC ####[facility] Gtsvlutfjx14[address] [place] [address]Dr. Garima Pulliam Hemoglobin (Bld) [Mass/Vol] 15.2 g/dL Normal 14.0-18.0 [facility] Comment on above: Performed By: #### C BC ####[facility] Usteogdnru[address] [place] [address]Dr. Garima Pulliam IG # 0.02 10e3/ul Normal 0.00-0.03 [facility] Comment on above: Performed By: #### C BC ####[facility] Yinjjbkqhg9[address] [place] [address]Dr. Garima Pulliam IG % 0.2 % Normal 0.0-0.5 [facility] Comment on above: Performed By: #### C BC ####[facility] Fyuzweiosj[address] [place] [address]Dr. Garima Pulliam LYMPH # 2.1 103/ul Normal 1.2-3.8 [facility] Comment on above: Performed By: #### C BC ####[facility] Djrnkdcnoq9199 [place] [address]Dr. Garima Pulliam Lymphocytes/100 WBC (Bld) 23.7 % Normal 20.5-60.0 [facility] Comment on above: Performed By: #### C BC ####[facility] Ohkglrrmrp39[address] [place] [address]Dr. Garima Heraclio MANUAL DIFF REQ NO Normal [facility] Comment on above: Performed By: #### C BC ####[facility] Hmeiuhqdig7464 [place] [address]Dr. Garima Pulliam MCH (RBC) [Entitic mass] 30.4 pg Normal 25.9-34.0 [facility] Comment on above: Performed By: #### C BC ####[facility] Bdkdlvdvfc6556 [place] [address]Dr. Garima Heraclio MCHC (RBC) [Mass/Vol] 33.3 g/dL Normal 29.9-35.2 [facility] Comment on above: Performed By: #### C BC ####[facility] Fbvsetoxqb[address] [place], [place] [address]Dr. Chapisrenu Pulliam MCV (RBC) [Entitic vol] 91.4 fL Normal 80.0-94.0 [facility] Comment on above: Performed By: #### C BC ####[facility] Gqmwemcmae[address] [place], [place] [address]Dr. Garima Heraclio MONO # 0.7 103/ul Normal 0.3-0.8 [facility] Comment on above: Performed By: #### C BC ####[facility] Lksrsbjugv[address] [place], [place] [address]Dr. Chapisrenu Pulliam Monocytes/100 WBC (Bld) 8.3 % Normal 1.7-12.0 [facility] Comment on above: Performed By: #### C BC ####[facility] Mymscbrhhf82[address] [place] [address]Dr. Chapisrenu Heraclio NEUT # 5.8 103/ul Normal 1.4-6.5 [facility] Comment on above: Performed By: #### C BC ####[facility] Bkhovlykws[address] [place], [place] [address]Dr. Garima Pulliam Neutrophils/100 WBC (Bld) 64.7 % Normal 43.0-75.0 [facility] Comment on above: Performed By: #### C BC ####[facility] Mwonreuhyx4893 [place] [address]Dr. Garima Pulliam Platelet mean volume (Bld) [Entitic vol] 8.6 fL Critically low 9.5-13.5 [facility] Comment on above: Performed By: #### C BC ####[facility] Bejujwiork[address] [place] [address]Dr. Garima Pulliam PLT 230 103/ul Normal 150-450 [facility] Comment on above: Performed By: #### C BC ####[facility] Olzakywhne6173 [place] [address]Dr. Chapisrenu Heraclio RBC 5.00 106/ul Normal 4.70-6.10 [facility] Comment on above: Performed By: #### C BC ####[facility] Qnbsbhxeth9525 [place] [address]Dr. Garima Heraclio WBC 9.0 103/ul Normal 4.0-11.0 [facility] Comment on above: Performed By: #### C BC ####[facility] Shtmdksxrg0578 [place] [address]Dr. Garima Pulliam MAGNESIUMon 04-04-2023 Magnesium [Mass/Vol] 1.8 mg/dL Normal 1.8-2.4 [facility] Comment on above: Performed By: #### M G ####[facility] Lzrvoariid1708 [place] [address]Dr. Chapisrenu Pulliam PROF 14(COMP METB)on 023 Albumin [Mass/Vol] 3.8 g/dL Normal 3.4-5.0 [facility] Comment on above: Performed By: #### C MP ####[facility] Jxuqieblrg7812 [place] [address]Dr. Garima Pulliam Albumin/Globulin [Mass ratio] 1.2 {ratio} Normal [facility] Comment on above: Performed By: #### C MP ####[facility] Imcghuspvc1663 [place] [address]Dr. Garima Heraclio ALP [Catalytic activity/Vol] 84 U/L Normal 46-116 [facility] Comment on above: Performed By: #### C MP ####[facility] Jkbycscbgx6473 [place] [id number]. Garima Pulliam ALT [Catalytic activity/Vol] 31 U/L Normal 16-63 [facility] Comment on above: Performed By: #### C MP ####[facility] Xdrosymied9140 [place] [address]Dr. Garima Pulliam Anion gap [Moles/Vol] 12.2 mmol/L Normal [facility] Comment on above: Performed By: #### C MP ####[facility] Ezlfidgnwk9746 [place] [address]Dr. Garima Pulliam AST [Catalytic activity/Vol] 23 U/L Normal 15-37 [facility] Comment on above: Performed By: #### C MP ####[facility] Sazmcycljl[address] [place], [place] [address]Dr. Garima Pulliam Bilirubin [Mass/Vol] 0.5 mg/dL Normal 0.2-1.0 [facility] Comment on above: Performed By: #### C MP ####[facility] Bsmxxqxbol[address] [place], [place] [address]Dr. Garima Pulliam Calcium [Mass/Vol] 9.2 mg/dL Normal 8.5-10.1 [facility] Comment on above: Performed By: #### C MP ####[facility] Ctxffxpboi[address] [place], [place] [address]Dr. Garima Pulliam Chloride [Moles/Vol] 103 mmol/L Normal 98-107 [facility] Comment on above: Performed By: #### C MP ####[facility] Ppjifpbkqz4173 [place] [address]Dr. Garima Pulliam CO2 [Moles/Vol] 28.5 mmol/L Normal 21.0-32.0 [facility] Comment on above: Performed By: #### C MP ####[facility] Bkswnsqzyz678[address] [place], [place] [address]Dr. Garima Pulliam Creatinine [Mass/Vol] 0.74 mg/dL Normal 0.70-1.30 [facility] Comment on above: Performed By: #### C MP ####[facility] Flirthkecr1787 [place] [id number]. Garima Pulliam EGFR-AF SOUTH AFRICAN >60 Normal >=60 [facility] Comment on above: Performed By: #### C MP ####[facility] Dtbippbrhu5355 [place] [address]Dr. Garima Heraclio EGFR-NON AF SOU[place] AFR[place] >60 Normal >=60 [facility] Comment on above: Performed By: #### C MP ####[facility] Icpzorvzll7986 [place] [id number]. Garima Heraclio Globulin (S) [Mass/Vol] 3.1 g/dL Normal [facility] Comment on above: Performed By: #### C MP ####[facility] Kcihggular[address] [place], [place] [address]Dr. Garima Heraclio Glucose [Mass/Vol] 93 mg/dL Normal 74-106 [facility] Comment on above: Performed By: #### C MP ####[facility] Lkstxqucak[address] [place], [place] [address]Dr. Garima Heraclio Potassium [Moles/Vol] 3.7 mmol/L Normal 3.5-5.1 [facility] Comment on above: Performed By: #### C MP ####[facility] Lncxtdetuk[address] [place], [place] [address]Dr. Garima Heraclio Protein [Mass/Vol] 6.9 g/dL Normal 6.4-8.2 [facility] Comment on above: Performed By: #### C MP ####[facility] Wzmbrfcaxx18[address] [place], [place] [address]Dr. Garima Heraclio Sodium [Moles/Vol] 140 mmol/L Normal 136-145 [facility] Comment on above: Performed By: #### C MP ####[facility] Onwpxowhoz440[address] [place], [place] [address]Dr. Garima Pulliam Urea nitrogen [Mass/Vol] 8.0 mg/dL Normal 7.0-18.0 [facility] Comment on above: Performed By: #### C MP ####[facility] Nzrrqwbhsk[address] [place], [place] [address]Dr. Garima Pulliam Urea nitrogen/Creatinine [Mass ratio] 10.8 mg/mg Normal [facility] Comment on above: Performed By: #### C DAVID ####[facility] Waxndrjovt70[address] [place] [address]Dr. Garima Pulliam AMMONIAon 03-30-2023 Ammonia (P) [Moles/Vol] 11 umol/L Normal 11-32 [facility] Comment on above: Performed By: #### A MM ####[facility] Zzhgptxxrq055[address] [place], [place] [address]Dr. Garima Pulliam CARDIAC NASH ADMITon 023 CK [Catalytic activity/Vol] 232 U/L Normal 39-308 [facility] Comment on above: Performed By: #### C NANCY HERNANDEZ ####[facility] Bvjiktjilq8153 [place] [address]Dr. Chapisrenu Pulliam CK.MB [Mass/Vol] 4.83 ng/mL Critically high <=3.60 [facility] Comment on above: Performed By: #### C NANCY HERNANDEZ ####[facility] Drxkjwncvt635[address] [place], [place] [address]Dr. Garima Pulliam HSTROP 10.5 pg/mL Normal 4.0-76.1 [facility] Comment on above: Result Comment: CUT- OFF POINTS HAVE BEEN ESTABLISHED BASED ON THE FOURTH UNIVERSAL DEFINITIONS OF MYOCARDIALINFARCTION. THE UPPER REFERENCE LIMIT (URL) OF TROPONIN, DEFINED THE 99TH PERCENTILE OFcTnI DISTRIBUTION IN A REFERENCE POPULATION, HAS BEEN CONFIRMED THE DECISION THRESHOLDFOR [place] DIAGNOSIS. Performed By: #### C NANCY HERNANDEZ ####[facility] Elsgqhjrvl[address] [place], [place] [address]Dr. Garima Heraclio DORIS 79 ng/mL Normal 16-96 [facility] Comment on above: Performed By: #### C NANCY HERNANDEZ ####[facility] Pbpqrknkuf06[address] [place], [place] [address]Dr. Garima Heraclio CBC AUTO DIFFon 03-30-2023 BASO # 0.0 103/ul Normal 0.0-0.1 [facility] Comment on above: Performed By: #### C BC ####[facility] Shacspsqip8572 [place] [id number]. Garima Pulliam Basophils/100 WBC (Bld) 0.1 % Critically low 0.2-2.0 [facility] Comment on above: Performed By: #### C BC ####[facility] Fknspvpvtv8250 [place] [id number]. Garima Pulliam EO # 0.3 103/ul Normal 0.0-0.7 [facility] Comment on above: Performed By: #### C BC ####[facility] On[address]vawzj[address] [place], [place] [address]Dr. Garima Pulliam Eosinophils/100 WBC (Bld) 3.3 % Normal 0.9-7.0 [facility] Comment on above: Performed By: #### C BC ####[facility] Tiyaztisuf[address] [place], [place] [address]Dr. Garima Pulliam Erythrocyte distribution width (RBC) [Ratio] 13.5 % Normal 11.0-15.0 [facility] Comment on above: Performed By: #### C BC ####[facility] [address]stlqgevll[address] [place], [place] [address]Dr. Garima Pulliam Hematocrit (Bld) [Volume fraction] 42.9 % Normal 42.0-54.0 [facility] Comment on above: Performed By: #### C BC ####[facility] Tpmuhufsom[address] [place], [place] [address]Dr. Garima Pulliam Hemoglobin (Bld) [Mass/Vol] 13.9 g/dL Critically low 14.0-18.0 [facility] Comment on above: Performed By: #### C BC ####[facility] Hfqcehcgqj0652 [place] [id number]. Garima Pulliam IG # 0.01 10e3/ul Normal 0.00-0.03 [facility] Comment on above: Performed By: #### C BC ####[facility] Szitekcozh[address] [place], [place] [address]Dr. Garima Pulliam IG % 0.1 % Normal 0.0-0.5 [facility] Comment on above: Performed By: #### C BC ####[facility] Ndnjtbmurn0629 [place] [id number]. Garima Pulliam LYMPH # 1.7 103/ul Normal 1.2-3.8 [facility] Comment on above: Performed By: #### C BC ####[facility] Ewvtsrbeij1335 [place], [place] [address]Ae. Garima Pulliam Lymphocytes/100 WBC (Bld) 22.8 % Normal 20.5-60.0 [facility] Comment on above: Performed By: #### C BC ####[facility] Glepdoaaja0834 [place] [id number]. Garima Heraclio MANUAL DIFF REQ NO Normal [facility] Comment on above: Performed By: #### C BC ####[facility] Fqbwfieqaj5202 [place] [id number]. Garima Heraclio MCH (RBC) [Entitic mass] 30.5 pg Normal 25.9-34.0 [facility] Comment on above: Performed By: #### C BC ####[facility] Jxfsmubfjl0938 [place] [id number]. Garima Pulliam MCHC (RBC) [Mass/Vol] 32.4 g/dL Normal 29.9-35.2 [facility] Comment on above: Performed By: #### C BC ####[facility] Wwtotxkufo6291 [place] [id number]. Garima Heraclio MCV (RBC) [Entitic vol] 94.1 fL Critically high 80.0-94.0 [facility] Comment on above: Performed By: #### C BC ####[facility] Tuwdkbzwdd6444 [place] [id number]. Garima Heraclio MONO # 0.7 103/ul Normal 0.3-0.8 [facility] Comment on above: Performed By: #### C BC ####[facility] Vibepxjguf2782 [place] [address]Dr. Garima Heraclio Monocytes/100 WBC (Bld) 8.6 % Normal 1.7-12.0 [facility] Comment on above: Performed By: #### C BC ####[facility] Tqjvagoose7505 [place] [id number]. Garima Pulliam NEUT # 4.9 103/ul Normal 1.4-6.5 [facility] Comment on above: Performed By: #### C BC ####[facility] Cydfnuxohm5924 [place] [id number]. Garima Pulliam Neutrophils/100 WBC (Bld) 65.1 % Normal 43.0-75.0 [facility] Comment on above: Performed By: #### C BC ####[facility] Hzmdwhlfrm0181 [place] [id number]. Garima Pulliam Platelet mean volume (Bld) [Entitic vol] 8.5 fL Critically low 9.5-13.5 [facility] Comment on above: Performed By: #### C BC ####[facility] Lznrytgnvm6586 [place] [id number]. Garima Pulliam PLT 219 103/ul Normal 150-450 [facility] Comment on above: Performed By: #### C BC ####[facility] Kszueknpdu7750 [place] [id number]. Garima Pulliam RBC 4.56 106/ul Critically low 4.70-6.10 [facility] Comment on above: Performed By: #### C BC ####[facility] Bhntvifadd6879 [place] [id number]. Garima Pulliam WBC 7.6 103/ul Normal 4.0-11.0 [facility] Comment on above: Performed By: #### C BC ####[facility] Tkxaipdbay3923 [place] [id number]. Garima Pulliam LACTATE/LACTIC ACIDon 2022 Lactate [Moles/Vol] 1.2 mmol/L Normal 0.4-2.0 [facility] Comment on above: Performed By: #### L ACT ####[facility] Jfzvnkukxt6015 [place] [id number]. Garima Pulliam MAGNESIUMon 03-30-2023 Magnesium [Mass/Vol] 1.8 mg/dL Normal 1.8-2.4 [facility] Comment on above: Performed By: #### M G ####[facility] Fuegdoxtzv4149 [place] [address]Dr. Garima Pulliam PROF 14(COMP METB)on 023 Albumin [Mass/Vol] 3.5 g/dL Normal 3.4-5.0 [facility] Comment on above: Performed By: #### C DAVID, CMAANA ROSA ####[facility] Kxcojjeona9943 [place] [address]Dr. Garima Pulliam Albumin/Globulin [Mass ratio] 1.2 {ratio} Normal [facility] Comment on above: Performed By: #### C DAVID, CMAANA ROSA ####[facility] Nfzpsnibfj8628 [place] [address]Dr. Garima Pulliam ALP [Catalytic activity/Vol] 85 U/L Normal 46-116 [facility] Comment on above: Performed By: #### C DAVID, CMAANA ROSA ####[facility] Cxvfdfdowy[address] [place], [place] [address]Dr. Garima Pulliam ALT [Catalytic activity/Vol] 29 U/L Normal 16-63 [facility] Comment on above: Performed By: #### C DAVID, CMAANA ROSA ####[facility] Zehpmfcsqn5629 [place] [address]Dr. Garima Pulliam Anion gap [Moles/Vol] 8.0 mmol/L Normal [facility] Comment on above: Performed By: #### C DAVID, CMAANA ROSA ####[facility] Rswjzlrcco6969 [place] [address]Dr. Garima Pulliam AST [Catalytic activity/Vol] 18 U/L Normal 15-37 [facility] Comment on above: Performed By: #### C DAVID, CMADM ####[facility] Jrdjlclglg7161 [place] [address]Dr. Garima Pulliam Bilirubin [Mass/Vol] 0.4 mg/dL Normal 0.2-1.0 [facility] Comment on above: Performed By: #### C DAVID, CMADM ####[facility] Mhjbtzhcet8544 [place] [address]Dr. Garima Pulliam Calcium [Mass/Vol] 8.8 mg/dL Normal 8.5-10.1 [facility] Comment on above: Performed By: #### C DAVID, NANCY ####[facility] Eyzpqxxovr5933 [place] [address]Dr. Chapisrenu Pulliam Chloride [Moles/Vol] 108 mmol/L Critically high 98-107 [facility] Comment on above: Performed By: #### C DAVID, NANCY ####[facility] Tkxidfbhhd4288 [place] [address]Dr. Garima Pulliam CO2 [Moles/Vol] 29.6 mmol/L Normal 21.0-32.0 [facility] Comment on above: Performed By: #### C NANCY HERNANDEZ ####[facility] Hovaybasbb[address] [place], [place] [address]Dr. Garima Pulliam Creatinine [Mass/Vol] 0.77 mg/dL Normal 0.70-1.30 [facility] Comment on above: Performed By: #### C NANCY HERNANDEZ ####[facility] Meiesxsiny9[address] [place], [place] [address]Dr. Garima Heraclio EGFR-AF SOU[place] AFRICAN >60 Normal >=60 [facility] Comment on above: Performed By: #### C NANCY HERNANDEZ ####[facility] Ylpbwqoyjl[address] [place], [place] [address]Dr. Garima Heraclio EGFR-NON AF [place] AFR[place] >60 Normal >=60 [facility] Comment on above: Performed By: #### C NANCY HERNANDEZ ####[facility] Dgniatjgom3581 [place] [address]Dr. Garima Pulliam Globulin (S) [Mass/Vol] 2.8 g/dL Normal [facility] Comment on above: Performed By: #### C NANCY HERNANDEZ ####[facility] Pqmzzibgwx7130 [place] [address]Dr. Garima Pulliam Glucose [Mass/Vol] 207 mg/dL Critically high 74-106 [facility] Comment on above: Performed By: #### C NANCY HERNANDEZ ####[facility] Gyfwzpvibm[address] [place], [place] [address]Dr. Garima Pulliam Potassium [Moles/Vol] 4.6 mmol/L Normal 3.5-5.1 [facility] Comment on above: Performed By: #### C DAVID, NANCY ####[facility] Zxenvhfwxc9009 [place] [address]Dr. Garima Pulliam Protein [Mass/Vol] 6.3 g/dL Critically low 6.4-8.2 [facility] Comment on above: Performed By: #### C DAVID, NANCY ####[facility] Ltystrnhnh8586 [place] [address]Dr. Garima Pulliam Sodium [Moles/Vol] 141 mmol/L Normal 136-145 [facility] Comment on above: Performed By: #### C DAVID, NANCY ####[facility] Qzljkuqxev0740 [place] [address]Dr. Garima Pulliam Urea nitrogen [Mass/Vol] 9.0 mg/dL Normal 7.0-18.0 [facility] Comment on above: Performed By: #### C DAVID, NANCY ####[facility] Tunybjbhxp3639 [place] [address]Dr. Garima Pulliam Urea nitrogen/Creatinine [Mass ratio] 11.7 mg/mg Normal [facility] Comment on above: Performed By: #### C DAVID, NANCY ####[facility] Hwmyayyigu3699 [place] [address]Dr. Garima Pulliam XR CHEST 1 Von 03-30-2023 XR CHEST 1 V Normal [facility] BNPon 03-27-2023 Natriuretic peptide B (Bld) [Mass/Vol] 251.0 pg/mL Normal <=900.0 [facility] Comment on above: Performed By: #### C MP, BNP, LIPID ####[facility] Nupnnaladf5598 [place] [address]Dr. Garima Pulliam GLYCOHEMOGLOBIN A1Con 2022 ADA RECOMMENDATION SEE BELOW Normal [facility] Comment on above: Result Comment: ADA RECOMMENDED LIMIT 4.0 - 6.0 ADA THERAPEUTIC TARGET < 7.0 ACTION SUGGESTED > 7.0 Performed By: #### A 1C ####[facility] Xriuowfarn6244 [place] [address]Dr. Garima Pulliam Glucose [Mass/Vol] 180 mg/dL Normal [facility] Comment on above: Performed By: #### A 1C ####[facility] Ycbjsjyyrq[address] [place], [place] [address]Dr. Chapisrenu Pulliam HbA1c (Bld) [Mass fraction] 7.9 % Critically high 4.5-6.2 [facility] Comment on above: Performed By: #### A 1C ####[facility] Jcavspurgs[address] [place], [place] [address]Dr. Garima Pulliam HEMOGRAM AND PLATELon 2022 Hematocrit (Bld) [Volume fraction] 45.7 % Normal 42.0-54.0 [facility] Comment on above: Performed By: #### H H ####[facility] Umflevdbre[address] [place], [place] [address]Dr. Garima Pulliam Hemoglobin (Bld) [Mass/Vol] 15.1 g/dL Normal 14.0-18.0 [facility] Comment on above: Performed By: #### H H ####[facility] Bigqgkpqck[address] [place], [place] [address]Dr. Garima Pulliam MCH (RBC) [Entitic mass] 30.0 pg Normal 25.9-34.0 [facility] Comment on above: Performed By: #### H H ####[facility] Hbhvoeqcay[address] [place], [place] [address]Dr. Garima Pulliam MCHC (RBC) [Mass/Vol] 33.0 g/dL Normal 29.9-35.2 [facility] Comment on above: Performed By: #### H H ####[facility] Syablfaebe[address] [place], [place] [address]Dr. Garima Pulliam MCV (RBC) [Entitic vol] 90.7 fL Normal 80.0-94.0 [facility] Comment on above: Performed By: #### H H ####[facility] Grdknyrxuw[address] [place], [place] [address]Dr. Garima Pulliam PLT 222 103/ul Normal 150-450 [facility] Comment on above: Performed By: #### H H ####[facility] Pgxeurhulz4596 [place] [id number]. Garima Pulliam RBC 5.04 106/ul Normal 4.70-6.10 [facility] Comment on above: Performed By: #### H H ####[facility] Gxxyapdocq6144 [place] [id number]. Garima Pulliam WBC 8.7 103/ul Normal 4.0-11.0 [facility] Comment on above: Performed By: #### H H ####[facility] Dypdhcvecl5500 [place] [id number]. Garima Pulliam LIPID PROFILEon 03-27-2023 CHOL-HDL RATIO NORM SEE BELOW Normal [facility] Comment on above: Result Comment: 3.3 - 4.4 LOW RISK 4.4 - 7.1 AVERAGE RISK 7.1 - 11.0 MODERATE RISK >11.0 HIGH RISK Performed By: #### C MP, BNP, LIPID ####[facility] Ujkmrkntuv7528 [place] [address]Dr. Garima Pulliam Cholesterol [Mass/Vol] 113 mg/dL Normal <=200 [facility] Comment on above: Performed By: #### C MP, BNP, LIPID ####[facility] Majufgxywu4120 [place] [address]Dr. Garima Pulliam Cholesterol in HDL [Mass/Vol] 51 mg/dL Normal 40-60 [facility] Comment on above: Performed By: #### C MP, BNP, LIPID ####[facility] Bfzzxxwtve3500 [place] [address]Dr. Garima Pulliam Cholesterol in LDL [Mass/Vol] 49.8 mg/dL Normal [facility] Comment on above: Performed By: #### C MP, BNP, LIPID ####[facility] Vgrfaqotwn7913 [place] [address]Dr. Garima Pulliam Cholesterol.total/Cho lesterol in HDL [Mass ratio] 2.2 {ratio} Normal [facility] Comment on above: Performed By: #### C MP, BNP, LIPID ####[facility] Gchxeawlul5957 [place] [address]Dr. Garima Pulliam HDL NORMAL > or = 60 mg/dl - LOW CARDIOVASCULAR RISK <40 mg/dl - HIGH CARDIOVASCULAR RISK Normal [facility] Comment on above: Performed By: #### C MP, BNP, LIPID ####[facility] System [address]hlprtbyrz[address] [place] [address]Dr. Garima Pulliam LDL CALC NORMAL SEE BELOW Normal [facility] Comment on above: Result Comment: <100 mg/dl OPTIMAL 100 - 129 mg/dl NEAR OR ABOVE OPTIMAL 130 - 159 mg/dl BORDERLINE HIGH 160 - 189 mg/dl HIGH >190 mg/dl VERY HIGH Performed By: #### C MP, BNP, LIPID ####[facility] Ncybiffnjz[address] [place] [address]Dr. Garima Pulliam Triglyceride [Mass/Vol] 61 mg/dL Normal <=150 [facility] Comment on above: Performed By: #### C MP, BNP, LIPID ####[facility] Pegjcysuly[address] [place] [address]Dr. Garima Pulliam VLDL CALC 12.2 mg/dL Normal [facility] Comment on above: Performed By: #### C MP, BNP, LIPID ####[facility] Dlerrytvkf7385 [place] [address]Dr. Garima Pulliam PROF 14(COMP METB)on 023 Albumin [Mass/Vol] 3.5 g/dL Normal 3.4-5.0 [facility] Comment on above: Performed By: #### C MP, BNP, LIPID ####[facility] Krdlwjawkm25[address] [place] [address]Dr. Garima Pulliam Albumin/Globulin [Mass ratio] 1.2 {ratio} Normal [facility] Comment on above: Performed By: #### C MP, BNP, LIPID ####[facility] Lmurwskjac9016 [place] [address]Dr. Garima Pulliam ALP [Catalytic activity/Vol] 82 U/L Normal 46-116 [facility] Comment on above: Performed By: #### C MP, BNP, LIPID ####[facility] Lvpxcmlyby17[address] [place] [address]Dr. Garima Pulliam ALT [Catalytic activity/Vol] 33 U/L Normal 16-63 [facility] Comment on above: Performed By: #### C MP, BNP, LIPID ####[facility] Srohxcghpw1676 [place] [address]Dr. Garima Pulliam Anion gap [Moles/Vol] 9.9 mmol/L Normal [facility] Comment on above: Performed By: #### C MP, BNP, LIPID ####[facility] Apipymjcde5189 [place] [address]Dr. Garima Pulliam AST [Catalytic activity/Vol] 24 U/L Normal 15-37 [facility] Comment on above: Performed By: #### C MP, BNP, LIPID ####[facility] Nmtcyepubs6517 [place] [address]Dr. Garima Pulliam Bilirubin [Mass/Vol] 0.6 mg/dL Normal 0.2-1.0 [facility] Comment on above: Performed By: #### C MP, BNP, LIPID ####[facility] Janlmfrxbe2305 [place] [address]Dr. Garima Pulliam Calcium [Mass/Vol] 9.2 mg/dL Normal 8.5-10.1 [facility] Comment on above: Performed By: #### C MP, BNP, LIPID ####[facility] Mscewecbmu3088 [place] [address]Dr. Garima Pulliam Chloride [Moles/Vol] 106 mmol/L Normal 98-107 [facility] Comment on above: Performed By: #### C MP, BNP, LIPID ####[facility] Icosnphpps7526 [place] [address]Dr. Garima Pulliam CO2 [Moles/Vol] 32.3 mmol/L Critically high 21.0-32.0 [facility] Comment on above: Performed By: #### C MP, BNP, LIPID ####[facility] Bbzqqrhdom3125 [place] [address]Dr. Garima Pulliam Creatinine [Mass/Vol] 0.70 mg/dL Normal 0.70-1.30 [facility] Comment on above: Performed By: #### C MP, BNP, LIPID ####[facility] Idnejugobh7829 [place] [id number]. Garima Pulliam EGFR-AF SOUTH AFRICAN >60 Normal >=60 [facility] Comment on above: Performed By: #### C MP, BNP, LIPID ####[facility] Itzfxmbajo6877 [place] [id number]. Garima Pulliam EGFR-NON AF S[place] AFR[place] >60 Normal >=60 [facility] Comment on above: Performed By: #### C MP, BNP, LIPID ####[facility] Lgkqafsuwl2453 [place] [address]Dr. Garima Pulliam Globulin (S) [Mass/Vol] 2.9 g/dL Normal [facility] Comment on above: Performed By: #### C MP, BNP, LIPID ####[facility] Zhxcuoucak4555 [place] [address]Dr. Garima Pulliam Glucose [Mass/Vol] 111 mg/dL Critically high 74-106 [facility] Comment on above: Performed By: #### C MP, BNP, LIPID ####[facility] Qdhjrvvzkq5966 [place] [address]Dr. Garima Pulliam Potassium [Moles/Vol] 4.2 mmol/L Normal 3.5-5.1 [facility] Comment on above: Performed By: #### C MP, BNP, LIPID ####[facility] Jwtuyirnlf0868 [place] [address]Dr. Garima Pulliam Protein [Mass/Vol] 6.4 g/dL Normal 6.4-8.2 [facility] Comment on above: Performed By: #### C MP, BNP, LIPID ####[facility] Jntawkgbxr2701 [place] [address]Dr. Garima Pulliam Sodium [Moles/Vol] 144 mmol/L Normal 136-145 [facility] Comment on above: Performed By: #### C MP, BNP, LIPID ####[facility] Mfvpfchpkb8206 [place] [address]Dr. Garima Pulliam Urea nitrogen [Mass/Vol] 7.0 mg/dL Normal 7.0-18.0 [facility] Comment on above: Performed By: #### C MP, BNP, LIPID ####[facility] Lcwozogwtr[address] [place], [place] [address]Dr. Garima Pulliam Urea nitrogen/Creatinine [Mass ratio] 10.0 mg/mg Normal [facility] Comment on above: Performed By: #### C MP, BNP, LIPID ####[facility] Apwbzohasd312[address] [place], [place] [address]Dr. Garima Pulliam BNPon 03-22-2023 Natriuretic peptide B (Bld) [Mass/Vol] 103.0 pg/mL Normal <=900.0 [facility] Comment on above: Performed By: #### B TEACHER OF THE VISUALLY IMPAIRED, BMP ####[facility] Ddajpkxryi190[address] [place], [place] [address]Dr. Garima Pulliam CBC AUTO DIFFon 03-22-2023 BASO # 0.0 103/ul Normal 0.0-0.1 [facility] Comment on above: Performed By: #### C BC ####[facility] Wojdwzlwwt[address] [place], [place] [address]Dr. Garima Heraclio Basophils/100 WBC (Bld) 0.3 % Normal 0.2-2.0 [facility] Comment on above: Performed By: #### C BC ####[facility] Tuasdptekw[address] [place], [place] [address]Dr. Garima Pulliam EO # 0.2 103/ul Normal 0.0-0.7 [facility] Comment on above: Performed By: #### C BC ####[facility] Shwqzceieq[address] [place], [place] [address]Dr. Garima Pulliam Eosinophils/100 WBC (Bld) 2.2 % Normal 0.9-7.0 [facility] Comment on above: Performed By: #### C BC ####[facility] Kimmyzmscq215[address] [place], [place] [address]Dr. Garima Pulliam Erythrocyte distribution width (RBC) [Ratio] 13.2 % Normal 11.0-15.0 [facility] Comment on above: Performed By: #### C BC ####[facility] Hbixhcwvtg1476 [place] [id number]. Garima Pulliam Hematocrit (Bld) [Volume fraction] 43.4 % Normal 42.0-54.0 [facility] Comment on above: Performed By: #### C BC ####[facility] Ckxiqcxpfr0556 [place] [address]Dr. Garima Heraclio Hemoglobin (Bld) [Mass/Vol] 14.3 g/dL Normal 14.0-18.0 [facility] Comment on above: Performed By: #### C BC ####[facility] Ddphigyofd6956 [place] [address]Dr. Garima Pulliam IG # 0.02 10e3/ul Normal 0.00-0.03 [facility] Comment on above: Performed By: #### C BC ####[facility] Djbnwgtmzr4565 [place] [address]Dr. Garima Pulliam IG % 0.3 % Normal 0.0-0.5 [facility] Comment on above: Performed By: #### C BC ####[facility] Qjzoboexir6534 [place] [address]Dr. Chapisrenu Pulliam LYMPH # 2.0 103/ul Normal 1.2-3.8 [facility] Comment on above: Performed By: #### C BC ####[facility] Nptpukbbyk3109 [place] [address]Dr. Chapisrenu Pulliam Lymphocytes/100 WBC (Bld) 24.8 % Normal 20.5-60.0 [facility] Comment on above: Performed By: #### C BC ####[facility] Ixgedrzony8773 [place] [address]Dr. Chapisrenu Pulliam MANUAL DIFF REQ NO Normal [facility] Comment on above: Performed By: #### C BC ####[facility] Bepxbdmgvi0724 [place] [address]Dr. Garima Heraclio MCH (RBC) [Entitic mass] 30.0 pg Normal 25.9-34.0 [facility] Comment on above: Performed By: #### C BC ####[facility] Rougupqkhk[address] [place], [place] [address]Dr. Garima Pulliam MCHC (RBC) [Mass/Vol] 32.9 g/dL Normal 29.9-35.2 [facility] Comment on above: Performed By: #### C BC ####[facility] Azgdlbnrkq5612 [place] [id number]. Garima Pulliam MCV (RBC) [Entitic vol] 91.0 fL Normal 80.0-94.0 [facility] Comment on above: Performed By: #### C BC ####[facility] Msttkiuzaj0973 [place] [id number]. Garima Heraclio MONO # 0.8 103/ul Normal 0.3-0.8 [facility] Comment on above: Performed By: #### C BC ####[facility] Ojdssxpttw0166 [place] [address]Dr. Chapisrenu Pulliam Monocytes/100 WBC (Bld) 9.7 % Normal 1.7-12.0 [facility] Comment on above: Performed By: #### C BC ####[facility] Swbviygtgc5780 [place] [address]Dr. Garima Pulliam NEUT # 4.9 103/ul Normal 1.4-6.5 [facility] Comment on above: Performed By: #### C BC ####[facility] Trfpbheozl7575 [place] [id number]. Garima Heraclio Neutrophils/100 WBC (Bld) 62.7 % Normal 43.0-75.0 [facility] Comment on above: Performed By: #### C BC ####[facility] Ngaolwiqua7541 [place] [id number]. Garima Heraclio Platelet mean volume (Bld) [Entitic vol] 8.8 fL Critically low 9.5-13.5 [facility] Comment on above: Performed By: #### C BC ####[facility] Mkefcdtafo4362 [place] [id number]. Garima Heraclio PLT 198 103/ul Normal 150-450 [facility] Comment on above: Performed By: #### C BC ####[facility] Bgmbxatxyi9651 [place] [id number]. Garima Heraclio RBC 4.77 106/ul Normal 4.70-6.10 [facility] Comment on above: Performed By: #### C BC ####[facility] Ochrqcdbrd7194 [place] [id number]. Garima Heraclio WBC 7.9 103/ul Normal 4.0-11.0 [facility] Comment on above: Performed By: #### C BC ####[facility] Kawwtspnqk1309 [place] [id number]. Garima Heraclio D-DIMERon 03-22-2023 D-DIMER 0.85 mg/L FEU Critically high <=0.59 [facility] Comment on above: Performed By: #### D DIM ####[facility] Xjtdvvkrln0946 [place] [address]Dr. Garima Pulliam D-DIMER COMMENTS SEE BELOW Normal [facility] Comment on above: Result Comment: [...] hospitalization. Performed By: #### D DIM ####[facility] Vgjkvedves[address] [place], [place] [address]Dr. Garima Pulliam PROF CHEM 8 (BAS METB)on Anion gap [Moles/Vol] 6.9 mmol/L Normal [facility] Comment on above: Performed By: #### B TEACHER OF THE VISUALLY IMPAIRED, BMP ####[facility] Jauumpbwux0700 [place] [address]Dr. Garima Pulliam Calcium [Mass/Vol] 8.9 mg/dL Normal 8.5-10.1 [facility] Comment on above: Performed By: #### B TEACHER OF THE VISUALLY IMPAIRED, BMP ####[facility] Vizjvraovb4520 [place] [address]Dr. Garima Pulliam Chloride [Moles/Vol] 101 mmol/L Normal 98-107 [facility] Comment on above: Performed By: #### B TEACHER OF THE VISUALLY IMPAIRED, BMP ####[facility] Kftaifdpnh[address] [place], [place] [address]Dr. Chapisrenu Heraclio CO2 [Moles/Vol] 30.7 mmol/L Normal 21.0-32.0 [facility] Comment on above: Performed By: #### B TEACHER OF THE VISUALLY IMPAIRED, BMP ####[facility] Jythqfluue[address] [place], [place] [address]Dr. Garima Pulliam Creatinine [Mass/Vol] 0.82 mg/dL Normal 0.70-1.30 [facility] Comment on above: Performed By: #### B TEACHER OF THE VISUALLY IMPAIRED, BMP ####[facility] Whunpgvann[address] [place], [place] [address]Dr. Garima Pulliam EGFR-AF S[place]FR[place] >60 Normal >=60 [facility] Comment on above: Performed By: #### B TEACHER OF THE VISUALLY IMPAIRED, BMP ####[facility] Izlkyjnkgh[address] [place], [place] [address]Dr. Chapisrenu Heraclio EGFR-NON AF [place] >60 Normal >=60 [facility] Comment on above: Performed By: #### B TEACHER OF THE VISUALLY IMPAIRED, BMP ####[facility] Qzgqdkgrme875[address] [place], [place] [address]Dr. Garima Pulliam Glucose [Mass/Vol] 339 mg/dL Critically high 74-106 [facility] Comment on above: Performed By: #### B TEACHER OF THE VISUALLY IMPAIRED, BMP ####[facility] Milwtgejly60[address] [place], [place] [address]Dr. Garima Pulliam Potassium [Moles/Vol] 3.6 mmol/L Normal 3.5-5.1 [facility] Comment on above: Performed By: #### B TEACHER OF THE VISUALLY IMPAIRED, BMP ####[facility] Vpbzddihdp037[address] [place], [place] [address]Dr. Garima Pulliam Sodium [Moles/Vol] 135 mmol/L Critically low 136-145 [facility] Comment on above: Performed By: #### B TEACHER OF THE VISUALLY IMPAIRED, BMP ####[facility] Niqhcjmnqq106[address] [place], [place] [address]Dr. Garima Pulliam Urea nitrogen [Mass/Vol] 11.0 mg/dL Normal 7.0-18.0 [facility] Comment on above: Performed By: #### B TEACHER OF THE VISUALLY IMPAIRED, BMP ####[facility] Fbdwiizbdv010[address] [place], [place] [address]Dr. Garima Pulliam Urea nitrogen/Creatinine [Mass ratio] 13.4 mg/mg Normal [facility] Comment on above: Performed By: #### B TEACHER OF THE VISUALLY IMPAIRED, BMP ####[facility] Qxakbtiteg119[address] [place], [place] [address]Dr. Garima Pulliam US VERONICA DOP LEG BILon 023 US VERONICA DOP LEG BENOIT Normal [facility] BNPon 03-18-2023 Natriuretic peptide B (Bld) [Mass/Vol] 226.0 pg/mL Normal <=900.0 [facility] Comment on above: Performed By: #### B TEACHER OF THE VISUALLY IMPAIRED, BMP ####[facility] Baavwbdzhg094[address] [place], [place] [address]Dr. Garima Pulliam CBC AUTO DIFFon 03-18-2023 BASO # 0.0 103/ul Normal 0.0-0.1 [facility] Comment on above: Performed By: #### C BC ####[facility] Lxnrglqczg422[address] [place], [place] [address]Dr. Garima Heraclio Basophils/100 WBC (Bld) 0.2 % Normal 0.2-2.0 [facility] Comment on above: Performed By: #### C BC ####[facility] Zytomhgljt[address] [place], [place] [address]Dr. Garima Pulliam EO # 0.3 103/ul Normal 0.0-0.7 [facility] Comment on above: Performed By: #### C BC ####[facility] Mqpdpaauil144[address] [place], [place] [address]Dr. Garima Heraclio Eosinophils/100 WBC (Bld) 2.5 % Normal 0.9-7.0 [facility] Comment on above: Performed By: #### C BC ####[facility] Gtdeatenei7[address] [place], [place] [address]Dr. Garima Heraclio Erythrocyte distribution width (RBC) [Ratio] 13.2 % Normal 11.0-15.0 [facility] Comment on above: Performed By: #### C BC ####[facility] Vnvauagcid5243 [place] [address]DrAdalberto Pulliam Hematocrit (Bld) [Volume fraction] 45.8 % Normal 42.0-54.0 [facility] Comment on above: Performed By: #### C BC ####[facility] Afsgdwgjek3446 [place] [address]DrAdalberto Pulliam Hemoglobin (Bld) [Mass/Vol] 15.3 g/dL Normal 14.0-18.0 [facility] Comment on above: Performed By: #### C BC ####[facility] Qqfmhmevaz7[address] [place], [place] [address]DrAdalberto Pulliam IG # 0.02 10e3/ul Normal 0.00-0.03 [facility] Comment on above: Performed By: #### C BC ####[facility] Yyeadanjjo9[address] [place], [place] [address]DrAdalberto Pulliam IG % 0.2 % Normal 0.0-0.5 [facility] Comment on above: Performed By: #### C BC ####[facility] Qmcnfducca[address] [place], [place] [address]DrAdalberto Pulliam LYMPH # 1.8 103/ul Normal 1.2-3.8 [facility] Comment on above: Performed By: #### C BC ####[facility] Uxhvetxzeb60[address] [place], [place] [address]DrAdalberto Pulliam Lymphocytes/100 WBC (Bld) 18.3 % Critically low 20.5-60.0 [facility] Comment on above: Performed By: #### C BC ####[facility] Amswtmpmce39[address] [place], [place] [address]DrAdalberto Pulliam MANUAL DIFF REQ NO Normal [facility] Comment on above: Performed By: #### C BC ####[facility] Fgrlyhgdxq2428 [place] [address]DrAdalberto Pulliam MCH (RBC) [Entitic mass] 30.5 pg Normal 25.9-34.0 [facility] Comment on above: Performed By: #### C BC ####[facility] Aucrzelknt3395 [place] [address]DrAdalberto Pulliam MCHC (RBC) [Mass/Vol] 33.4 g/dL Normal 29.9-35.2 [facility] Comment on above: Performed By: #### C BC ####[facility] Uttahwoicm0253 [place] [address]DrAdalberto Pulliam MCV (RBC) [Entitic vol] 91.2 fL Normal 80.0-94.0 [facility] Comment on above: Performed By: #### C BC ####[facility] Iwufdbdeks[address] [place], [place] [address]DrAdalberto Pulliam MONO # 0.8 103/ul Normal 0.3-0.8 [facility] Comment on above: Performed By: #### C BC ####[facility] Urtnwppzky[address] [place], [place] [address]DrAdalberto Pulliam Monocytes/100 WBC (Bld) 7.6 % Normal 1.7-12.0 [facility] Comment on above: Performed By: #### C BC ####[facility] Uystyfbhem[address] [place], [place] [address]DrAdalberto Pulliam NEUT # 7.0 103/ul Critically high 1.4-6.5 [facility] Comment on above: Performed By: #### C BC ####[facility] Zodvnfvocy37[address] [place], [place] [address]DrAdalberto Pulliam Neutrophils/100 WBC (Bld) 71.2 % Normal 43.0-75.0 [facility] Comment on above: Performed By: #### C BC ####[facility] Ckudxtanwk[address] [place], [place] [address]DrAdalbreto Pulliam Platelet mean volume (Bld) [Entitic vol] 8.9 fL Critically low 9.5-13.5 [facility] Comment on above: Performed By: #### C BC ####[facility] Vltavwrbog[address] [place], [place] [address]DrAdalberto Pulliam PLT 217 103/ul Normal 150-450 [facility] Comment on above: Performed By: #### C BC ####[facility] Qlvrqvrsak5644 [place] [address]Dr. Garima Heraclio RBC 5.02 106/ul Normal 4.70-6.10 [facility] Comment on above: Performed By: #### C BC ####[facility] Pmqlvikkud[address] [place], [place] [address]Dr. Gairma Pulliam WBC 9.8 103/ul Normal 4.0-11.0 [facility] Comment on above: Performed By: #### C BC ####[facility] Chnqtrixrn[address] [place], [place] [address]Dr. Garima Heraclio CRPon 03-18-2023 CRP 0.1 mg/dL Normal <=1.0 [facility] Comment on above: Performed By: #### C RP ####[facility] Fdlgrqggyz[address] [place], [place] [address]Dr. Garima Heraclio PROF CHEM 8 (BAS METB)on Anion gap [Moles/Vol] 10.4 mmol/L Normal [facility] Comment on above: Performed By: #### B TEACHER OF THE VISUALLY IMPAIRED, BMP ####[facility] Uvdkubshor[address] [place], [place] [address]Dr. Garima Heraclio Calcium [Mass/Vol] 8.8 mg/dL Normal 8.5-10.1 [facility] Comment on above: Performed By: #### B TEACHER OF THE VISUALLY IMPAIRED, BMP ####[facility] Fzwtlbrote[address] [place], [place] [address]Dr. Garima Heraclio Chloride [Moles/Vol] 97 mmol/L Critically low 98-107 [facility] Comment on above: Performed By: #### B TEACHER OF THE VISUALLY IMPAIRED, BMP ####[facility] Dyhsuzcjxd[address] [place], [place] [address]Dr. Garima Pulliam CO2 [Moles/Vol] 31.2 mmol/L Normal 21.0-32.0 [facility] Comment on above: Performed By: #### B TEACHER OF THE VISUALLY IMPAIRED, BMP ####[facility] Swjohtrecr[address] [place], [place] [address]Dr. Garima Pulliam Creatinine [Mass/Vol] 0.91 mg/dL Normal 0.70-1.30 [facility] Comment on above: Performed By: #### B TEACHER OF THE VISUALLY IMPAIRED, BMP ####[facility] Hhhfpxkbhs4610 [place] [address]Dr. Garima Pulliam EGFR-AF SOU[place]FR[place] >60 Normal >=60 [facility] Comment on above: Performed By: #### B TEACHER OF THE VISUALLY IMPAIRED, BMP ####[facility] Kvurlcsbeg0278 [place] [id number]. Garima Pulliam EGFR-NON AF [place] >60 Normal >=60 [facility] Comment on above: Performed By: #### B TEACHER OF THE VISUALLY IMPAIRED, BMP ####[facility] Bjmdtiecmr0388 [place] [address]Dr. Garima Pulliam Glucose [Mass/Vol] 315 mg/dL Critically high 74-106 T [facility] Comment on above: Performed By: #### B TEACHER OF THE VISUALLY IMPAIRED, BMP ####[facility] Gxwprllmrm4179 [place] [address]Dr. Garima Pulliam Potassium [Moles/Vol] 3.6 mmol/L Normal 3.5-5.1 [facility] Comment on above: Performed By: #### B TEACHER OF THE VISUALLY IMPAIRED, BMP ####[facility] Kzbuoywpbc0340 [place] [address]Dr. Garima Pulliam Sodium [Moles/Vol] 135 mmol/L Critically low 136-145 Th [facility] Comment on above: Performed By: #### B TEACHER OF THE VISUALLY IMPAIRED, BMP ####[facility] Mterfndrhg9389 [place] [address]Dr. Garima Pulliam Urea nitrogen [Mass/Vol] 7.0 mg/dL Normal 7.0-18.0 [facility] Comment on above: Performed By: #### B TEACHER OF THE VISUALLY IMPAIRED, BMP ####[facility] Vavfhmfpwh6248 [place] [address]Dr. Garima Pulliam Urea nitrogen/Creatinine [Mass ratio] 7.7 mg/mg Normal [facility] Comment on above: Performed By: #### B TEACHER OF THE VISUALLY IMPAIRED, BMP ####[facility] Djzflmrxbk2295 [place] [address]Dr. Garima Pulliam SED RATE WESTERGRENon 2022 SED RATE 8 mm/hr Normal <=20 [facility] Comment on above: Performed By: #### S EDR ####[facility] Qljmrximnz[address] [place], [place] [address]Dr. Garima Pulliam BNPon 03-16-2023 Natriuretic peptide B (Bld) [Mass/Vol] 241.0 pg/mL Normal <=900.0 [facility] Comment on above: Performed By: #### B TEACHER OF THE VISUALLY IMPAIRED, BMP, HSTROPN ####[facility] Bzarfmbarr[address] [place], [place] [address]Dr. Garima Heraclio CBC AUTO DIFFon 03-16-2023 BASO # 0.0 103/ul Normal 0.0-0.1 [facility] Comment on above: Performed By: #### C BC ####[facility] Zmhxeqtfnm[address] [place], [place] [address]Dr. Chapisrenu Pulliam Basophils/100 WBC (Bld) 0.2 % Normal 0.2-2.0 [facility] Comment on above: Performed By: #### C BC ####[facility] Wrfjalymee[address] [place], [place] [address]Dr. Garima Pulliam EO # 0.2 103/ul Normal 0.0-0.7 [facility] Comment on above: Performed By: #### C BC ####[facility] Sdkjpmaxdp[address] [place], [place] [address]Dr. Chapisrenu Pulliam Eosinophils/100 WBC (Bld) 2.7 % Normal 0.9-7.0 [facility] Comment on above: Performed By: #### C BC ####[facility] Ntzbokgjyx[address] [place], [place] [address]Dr. Garima Pulliam Erythrocyte distribution width (RBC) [Ratio] 13.1 % Normal 11.0-15.0 [facility] Comment on above: Performed By: #### C BC ####[facility] Dilzxumlzq[address] [place], [place] [address]Dr. Garima Pulliam Hematocrit (Bld) [Volume fraction] 41.8 % Critically low 42.0-54.0 [facility] Comment on above: Performed By: #### C BC ####[facility] Lypibuvcvk9983 [place] [address]Dr. Garima Pulliam Hemoglobin (Bld) [Mass/Vol] 14.0 g/dL Normal 14.0-18.0 [facility] Comment on above: Performed By: #### C BC ####[facility] Mrozvbzelt0651 [place] [address]Dr. Garima Pulliam IG # 0.03 10e3/ul Normal 0.00-0.03 [facility] Comment on above: Performed By: #### C BC ####[facility] Rbnobtqusx3437 [place] [address]Dr. Garima Pulliam IG % 0.3 % Normal 0.0-0.5 [facility] Comment on above: Performed By: #### C BC ####[facility] Ewprjixchf[address] [place], [place] [address]Dr. Chapisrenu Pulliam LYMPH # 2.1 103/ul Normal 1.2-3.8 [facility] Comment on above: Performed By: #### C BC ####[facility] System [address] [place], [place] [address]Dr. Chapisrenu Pulliam Lymphocytes/100 WBC (Bld) 24.2 % Normal 20.5-60.0 [facility] Comment on above: Performed By: #### C BC ####[facility] Tpzmhunidk[address] [place] [address]Dr. Garima Pulliam MANUAL DIFF REQ NO Normal [facility] Comment on above: Performed By: #### C BC ####[facility] Uioarzepky[address] [place] [address]Dr. Garima Pulliam MCH (RBC) [Entitic mass] 30.2 pg Normal 25.9-34.0 [facility] Comment on above: Performed By: #### C BC ####[facility] Orkceffaev[address] [place] [address]Dr. Garima Pulliam MCHC (RBC) [Mass/Vol] 33.5 g/dL Normal 29.9-35.2 [facility] Comment on above: Performed By: #### C BC ####[facility] Onwfekydrc0720 [place] [id number]. Garima Pulliam MCV (RBC) [Entitic vol] 90.1 fL Normal 80.0-94.0 [facility] Comment on above: Performed By: #### C BC ####[facility] Gyadsocvuz2093 [place] [id number]. Garima Pulliam MONO # 0.6 103/ul Normal 0.3-0.8 [facility] Comment on above: Performed By: #### C BC ####[facility] Zriabkfyzv35[address] [place] [address]Dr. Garima Heraclio Monocytes/100 WBC (Bld) 7.4 % Normal 1.7-12.0 [facility] Comment on above: Performed By: #### C BC ####[facility] Gwuoqwpjgi[address] [place], [place] [address]Dr. Garima Pulliam NEUT # 5.6 103/ul Normal 1.4-6.5 [facility] Comment on above: Performed By: #### C BC ####[facility] Woevctldhu[address] [place], [place] [address]Dr. Garima Heraclio Neutrophils/100 WBC (Bld) 65.2 % Normal 43.0-75.0 [facility] Comment on above: Performed By: #### C BC ####[facility] Txgvmnjbjt6525 [place] [id number]. Garima Heraclio Platelet mean volume (Bld) [Entitic vol] 8.7 fL Critically low 9.5-13.5 [facility] Comment on above: Performed By: #### C BC ####[facility] Rvgsuzetmx[address] [place], [place] [id number]. Garima Heraclio PLT 195 103/ul Normal 150-450 [facility] Comment on above: Performed By: #### C BC ####[facility] Jjwoiqowjv[address] [place] [id number]. Garima Pulliam RBC 4.64 106/ul Critically low 4.70-6.10 [facility] Comment on above: Performed By: #### C BC ####[facility] Hthrezqgyi2215 [place] [address]Dr. Garima Pulliam WBC 8.6 103/ul Normal 4.0-11.0 [facility] Comment on above: Performed By: #### C BC ####[facility] Mjjnhzepms9544 [place] [address]Dr. Garima Pulliam PROF CHEM 8 (BAS METB)on Anion gap [Moles/Vol] 6.7 mmol/L Normal [facility] Comment on above: Performed By: #### B TEACHER OF THE VISUALLY IMPAIRED, BMP, HSTROPN ####[facility] Ufwrrvqofc8037 [place] [address]Dr. Garima Pulliam Calcium [Mass/Vol] 8.8 mg/dL Normal 8.5-10.1 [facility] Comment on above: Performed By: #### B TEACHER OF THE VISUALLY IMPAIRED, BMP, HSTROPN ####[facility] Cdvxaolbkl[address] [place], [place] [address]Dr. Garima Pulliam Chloride [Moles/Vol] 106 mmol/L Normal 98-107 [facility] Comment on above: Performed By: #### B TEACHER OF THE VISUALLY IMPAIRED, BMP, HSTROPN ####[facility] Pijdaiehdz[address] [place], [place] [address]Dr. Garima Pulliam CO2 [Moles/Vol] 31.4 mmol/L Normal 21.0-32.0 [facility] Comment on above: Performed By: #### B TEACHER OF THE VISUALLY IMPAIRED, BMP, HSTROPN ####[facility] Hsrihrrzxl[address] [place], [place] [address]Dr. Garima Pulliam Creatinine [Mass/Vol] 0.75 mg/dL Normal 0.70-1.30 [facility] Comment on above: Performed By: #### B TEACHER OF THE VISUALLY IMPAIRED, BMP, HSTROPN ####[facility] Moruujcojv6119 [place] [address]Dr. Garima Pulliam EGFR-AF SOUTH AFRICAN >60 Normal >=60 [facility] Comment on above: Performed By: #### B TEACHER OF THE VISUALLY IMPAIRED, BMP, HSTROPN ####[facility] Jfdlbwpuah9080 [place] [address]Dr. Garima Pulliam EGFR-NON AF SOUTH AFRICAN >60 Normal >=60 [facility] Comment on above: Performed By: #### B TEACHER OF THE VISUALLY IMPAIRED, BMP, HSTROPN ####[facility] Hlwyjuopso6544 [place] [address]Dr. Garima Pulliam Glucose [Mass/Vol] 161 mg/dL Critically high 74-106 [facility] Comment on above: Performed By: #### B TEACHER OF THE VISUALLY IMPAIRED, BMP, HSTROPN ####[facility] Vfruavchmc9725 [place] [address]Dr. Garima Pulliam Potassium [Moles/Vol] 4.1 mmol/L Normal 3.5-5.1 [facility] Comment on above: Performed By: #### B TEACHER OF THE VISUALLY IMPAIRED, BMP, HSTROPN ####[facility] Keywvvwusa5117 [place] [address]Dr. Garima Pulliam Sodium [Moles/Vol] 140 mmol/L Normal 136-145 [facility] Comment on above: Performed By: #### B TEACHER OF THE VISUALLY IMPAIRED, BMP, HSTROPN ####[facility] Zpbbftnafb2601 [place] [address]Dr. Garima Pulliam Urea nitrogen [Mass/Vol] 7.0 mg/dL Normal 7.0-18.0 [facility] Comment on above: Performed By: #### B TEACHER OF THE VISUALLY IMPAIRED, BMP, HSTROPN ####[facility] Jkmcmuuazo3618 [place] [address]Dr. Garima Pulliam Urea nitrogen/Creatinine [Mass ratio] 9.3 mg/mg Normal [facility] Comment on above: Performed By: #### B TEACHER OF THE VISUALLY IMPAIRED, BMP, HSTROPN ####[facility] Risjniktuc8546 [place] [address]Dr. Garima Pulliam TROPONIN, HIGH SENSITIVITYon 03-16-2023 HSTROP 9.7 pg/mL Normal 4.0-76.1 [facility] Comment on above: Result Comment: CUT- OFF POINTS HAVE BEEN ESTABLISHED BASED ON THE FOURTH UNIVERSAL DEFINITIONS OF MYOCARDIALINFARCTION. THE UPPER REFERENCE LIMIT (URL) OF TROPONIN, DEFINED THE 99TH PERCENTILE OFcTnI DISTRIBUTION IN A REFERENCE POPULATION, HAS BEEN CONFIRMED THE DECISION THRESHOLDFOR [place] DIAGNOSIS. Performed By: #### B TEACHER OF THE VISUALLY IMPAIRED, BMP, HSTROPN ####[facility] Qoolbwecno6945 [place] [address]Dr. Garima Pulliam XR CHEST 1 Von 03-16-2023 XR CHEST 1 V Normal [facility] BNPon 03-06-2023 Natriuretic peptide B (Bld) [Mass/Vol] 111.0 pg/mL Normal <=900.0 [facility] Comment on above: Performed By: #### C MP, BNP, CK ####[facility] Fffxnnnyqt7476 [place] [address]Dr. Chapisrenu Pulliam CBC AUTO DIFFon 03-06-2023 BASO # 0.0 103/ul Normal 0.0-0.1 [facility] Comment on above: Performed By: #### C BC ####[facility] Njvejfehfe[address] [place], [place] [address]Dr. Garima Pulliam Basophils/100 WBC (Bld) 0.2 % Normal 0.2-2.0 [facility] Comment on above: Performed By: #### C BC ####[facility] Euyhgvycfs[address] [place], [place] [address]Dr. Garima Pulliam EO # 0.3 103/ul Normal 0.0-0.7 [facility] Comment on above: Performed By: #### C BC ####[facility] Luewlitkkm[address] [place], [place] [address]Dr. Garima Pulliam Eosinophils/100 WBC (Bld) 3.5 % Normal 0.9-7.0 [facility] Comment on above: Performed By: #### C BC ####[facility] Chfuonysdu[address] [place], [place] [address]Dr. Garima Pulliam Erythrocyte distribution width (RBC) [Ratio] 13.3 % Normal 11.0-15.0 [facility] Comment on above: Performed By: #### C BC ####[facility] Uxfijqljpr[address] [place], [place] [address]Dr. Garima Pulliam Hematocrit (Bld) [Volume fraction] 43.7 % Normal 42.0-54.0 [facility] Comment on above: Performed By: #### C BC ####[facility] Lnrlumllyt7812 [place] [address]Dr. Garima Pulliam Hemoglobin (Bld) [Mass/Vol] 14.7 g/dL Normal 14.0-18.0 [facility] Comment on above: Performed By: #### C BC ####[facility] Xwhaigqout8653 [place] [address]Dr. Chapisrenu Heraclio IG # 0.03 10e3/ul Normal 0.00-0.03 [facility] Comment on above: Performed By: #### C BC ####[facility] Bfdvyrfyhi[address] [place], [place] [address]Dr. Garima Pulliam IG % 0.4 % Normal 0.0-0.5 [facility] Comment on above: Performed By: #### C BC ####[facility] Qkwhhowquq[address] [place], [place] [address]Dr. Garima Pulliam LYMPH # 2.0 103/ul Normal 1.2-3.8 [facility] Comment on above: Performed By: #### C BC ####[facility] Myeaxqwmqd[address] [place], [place] [address]DrAdalberto Pulliam Lymphocytes/100 WBC (Bld) 23.7 % Normal 20.5-60.0 [facility] Comment on above: Performed By: #### C BC ####[facility] Sqtmfxctue8166 [place] [address]Dr. Garima Pulliam MANUAL DIFF REQ NO Normal [facility] Comment on above: Performed By: #### C BC ####[facility] Seajcjgoaa8214 [place] [id number] Pulliam MCH (RBC) [Entitic mass] 30.1 pg Normal 25.9-34.0 [facility] Comment on above: Performed By: #### C BC ####[facility] Mlbjxufsdw1259 [place] [id number]. Garima Pulliam MCHC (RBC) [Mass/Vol] 33.6 g/dL Normal 29.9-35.2 [facility] Comment on above: Performed By: #### C BC ####[facility] Qyzpbcwzbi1516 [place] [address]Dr. Garima Heraclio MCV (RBC) [Entitic vol] 89.4 fL Normal 80.0-94.0 [facility] Comment on above: Performed By: #### C BC ####[facility] Rhevciiosl2148 [place] [address]Dr. Garima Pulliam MONO # 0.8 103/ul Normal 0.3-0.8 [facility] Comment on above: Performed By: #### C BC ####[facility] Cipbdkyyls3120 [place] [address]Dr. Garima Pulliam Monocytes/100 WBC (Bld) 9.0 % Normal 1.7-12.0 [facility] Comment on above: Performed By: #### C BC ####[facility] Kcpgksmkhk[address] [place], [place] [address]Dr. Garima Pulliam NEUT # 5.4 103/ul Normal 1.4-6.5 [facility] Comment on above: Performed By: #### C BC ####[facility] Qmgwcvslxb38[address] [place], [place] [address]Dr. Garima Pulliam Neutrophils/100 WBC (Bld) 63.2 % Normal 43.0-75.0 [facility] Comment on above: Performed By: #### C BC ####[facility] Cpgrqenvyl[address] [place], [place] [address]Dr. Garima Pulliam Platelet mean volume (Bld) [Entitic vol] 9.0 fL Critically low 9.5-13.5 [facility] Comment on above: Performed By: #### C BC ####[facility] Mekybdanuh[address] [place], [place] [address]Dr. Garima Pulliam PLT 218 103/ul Normal 150-450 [facility] Comment on above: Performed By: #### C BC ####[facility] Adlbrjehro4771 [place] [id number]. Garima Pulliam RBC 4.89 106/ul Normal 4.70-6.10 [facility] Comment on above: Performed By: #### C BC ####[facility] Jxzdivahka0678 [place] [address]Dr. Garima Pulliam WBC 8.5 103/ul Normal 4.0-11.0 [facility] Comment on above: Performed By: #### C BC ####[facility] Prgaqofrbn3046 [place] [address]Dr. Garima Pulliam CPKon 03-06-2023 CK [Catalytic activity/Vol] 191 U/L Normal 39-308 [facility] Comment on above: Performed By: #### C MP, BNP, CK ####[facility] Xtkqlbanuz6289 [place] [address]Dr. Garima Pulliam PROF 14(COMP METB)on 023 Albumin [Mass/Vol] 3.6 g/dL Normal 3.4-5.0 [facility] Comment on above: Performed By: #### C MP, BNP, CK ####[facility] Qmhpobghnv1690 [place] [address]Dr. Garima Pulliam Albumin/Globulin [Mass ratio] 1.2 {ratio} Normal [facility] Comment on above: Performed By: #### C MP, BNP, CK ####[facility] Imsappdqsq3410 [place] [address]Dr. Garima Pulliam ALP [Catalytic activity/Vol] 91 U/L Normal 46-116 [facility] Comment on above: Performed By: #### C MP, BNP, CK ####[facility] Wyhthdhhne2500 [place] [address]Dr. Garima Pulliam ALT [Catalytic activity/Vol] 33 U/L Normal 16-63 [facility] Comment on above: Performed By: #### C MP, BNP, CK ####[facility] Uranxgvqxs5773 [place] [address]Dr. Garima Pulliam Anion gap [Moles/Vol] 10.3 mmol/L Normal [facility] Comment on above: Performed By: #### C MP, BNP, CK ####[facility] Ffphhyqhgr8860 [place] [address]Dr. Garima Pulliam AST [Catalytic activity/Vol] 17 U/L Normal 15-37 [facility] Comment on above: Performed By: #### C MP, BNP, CK ####[facility] Izgpaxwiwj0934 [place] [address]Dr. Garima Pulliam Bilirubin [Mass/Vol] 0.4 mg/dL Normal 0.2-1.0 [facility] Comment on above: Performed By: #### C MP, BNP, CK ####[facility] Yeehhhpnyh7441 [place] [address]Dr. Garima Pulliam Calcium [Mass/Vol] 9.1 mg/dL Normal 8.5-10.1 [facility] Comment on above: Performed By: #### C MP, BNP, CK ####[facility] Cinnupgrzt4682 [place] [address]Dr. Garima Pulliam Chloride [Moles/Vol] 102 mmol/L Normal 98-107 [facility] Comment on above: Performed By: #### C MP, BNP, CK ####[facility] Cvpephdzqc0865 [place] [address]Dr. Garima Pulliam CO2 [Moles/Vol] 29.7 mmol/L Normal 21.0-32.0 [facility] Comment on above: Performed By: #### C MP, BNP, CK ####[facility] Aredjzdwuk5130 [place] [address]Dr. Garima Pulliam Creatinine [Mass/Vol] 0.79 mg/dL Normal 0.70-1.30 [facility] Comment on above: Performed By: #### C MP, BNP, CK ####[facility] Oapelhnsjs9608 [place] [address]Dr. Garima Pulliam EGFR-AF SOUTH AFR[place] >60 Normal >=60 [facility] Comment on above: Performed By: #### C MP, BNP, CK ####[facility] Aednibfgfb6490 [place] [address]Dr. Garima Pulliam EGFR-NON AF [place] AFR[place] >60 Normal >=60 [facility] Comment on above: Performed By: #### C MP, BNP, CK ####[facility] Hnjcyzzjgz5969 [place] [address]Dr. Garima Pulliam Globulin (S) [Mass/Vol] 3.0 g/dL Normal [facility] Comment on above: Performed By: #### C MP, BNP, CK ####[facility] Peduojvlbx9112 [place] [address]Dr. Garima Pulliam Glucose [Mass/Vol] 202 mg/dL Critically high 74-106 [facility] Comment on above: Performed By: #### C MP, BNP, CK ####[facility] Ouyuuchikn7136 [place] [address]Dr. Garima Pulliam Potassium [Moles/Vol] 4.0 mmol/L Normal 3.5-5.1 [facility] Comment on above: Performed By: #### C MP, BNP, CK ####[facility] Lvdvyrqeoc2083 [place] [address]Dr. Garima Pulliam Protein [Mass/Vol] 6.6 g/dL Normal 6.4-8.2 [facility] Comment on above: Performed By: #### C MP, BNP, CK ####[facility] Yuebhfgaqb7[address] [place], [place] [address]Dr. Garima Pulliam Sodium [Moles/Vol] 138 mmol/L Normal 136-145 [facility] Comment on above: Performed By: #### C MP, BNP, CK ####[facility] Cglgzbattb[address] [place], [place] [address]Dr. Garima Pulliam Urea nitrogen [Mass/Vol] 10.0 mg/dL Normal 7.0-18.0 [facility] Comment on above: Performed By: #### C MP, BNP, CK ####[facility] Utwdouesjs8356 [place] [address]Dr. Garima Pulliam Urea nitrogen/Creatinine [Mass ratio] 12.7 mg/mg Normal [facility] Comment on above: Performed By: #### C MP, BNP, CK ####[facility] Tlgralxzkz5251 [place] [address]Dr. Garima Pulliam US VERONICA DOP LEG BILon 023 US VERONICA DOP LEG BENOIT Normal [facility] CBC AUTO DIFFon 01-13-2023 BASO # 0.0 103/ul Normal 0.0-0.1 [facility] Comment on above: Performed By: #### C BC ####[facility] Jhzmqnvuds6286 [place] [id number]. Chapisrenu Pulliam Basophils/100 WBC (Bld) 0.0 % Critically low 0.2-2.0 [facility] Comment on above: Performed By: #### C BC ####[facility] Jvuphnpwox6041 [place] [address]Dr. Garima Pulliam EO # 0.0 103/ul Normal 0.0-0.7 [facility] Comment on above: Performed By: #### C BC ####[facility] Qphbysjxnl[address] [place], [place] [address]Dr. Garima Pulliam Eosinophils/100 WBC (Bld) 0.0 % Critically low 0.9-7.0 [facility] Comment on above: Performed By: #### C BC ####[facility] Vemhkrpixb2674 [place] [address]Dr. Garima Pulliam Erythrocyte distribution width (RBC) [Ratio] 13.2 % Normal 11.0-15.0 [facility] Comment on above: Performed By: #### C BC ####[facility] Uuynbrtwwu[address] [place], [place] [address]Dr. Garima Pulliam Hematocrit (Bld) [Volume fraction] 46.7 % Normal 42.0-54.0 [facility] Comment on above: Performed By: #### C BC ####[facility] Ygehipblcy[address] [place], [place] [address]Dr. Garima Pulliam Hemoglobin (Bld) [Mass/Vol] 15.6 g/dL Normal 14.0-18.0 [facility] Comment on above: Performed By: #### C BC ####[facility] Ptvnqljuee[address] [place], [place] [address]Dr. Garima Pulliam IG # 0.01 10e3/ul Normal 0.00-0.03 [facility] Comment on above: Performed By: #### C BC ####[facility] Ovoixirdie7302 [place] [id number]. Garima Pulliam IG % 0.2 % Normal 0.0-0.5 [facility] Comment on above: Performed By: #### C BC ####[facility] Mmnrhcfvxk4823 [place] [id number]. Garima Pulliam LYMPH # 0.8 103/ul Critically low 1.2-3.8 [facility] Comment on above: Performed By: #### C BC ####[facility] Rbxabiiupv4975 [place] [id number]. Garima Pulliam Lymphocytes/100 WBC (Bld) 12.7 % Critically low 20.5-60.0 [facility] Comment on above: Performed By: #### C BC ####[facility] Tbprsvyroj4036 [place] [address]Dr. Garima Pulliam MANUAL DIFF REQ NO Normal [facility] Comment on above: Performed By: #### C BC ####[facility] Nkilizgysd3187 [place] [id number]. Garima Pulliam MCH (RBC) [Entitic mass] 30.2 pg Normal 25.9-34.0 [facility] Comment on above: Performed By: #### C BC ####[facility] Ndonayiafj7264 [place] [id number]. Garima Pulliam MCHC (RBC) [Mass/Vol] 33.4 g/dL Normal 29.9-35.2 [facility] Comment on above: Performed By: #### C BC ####[facility] Ggiurnpmyc7418 [place] [id number]. Garima Pulliam MCV (RBC) [Entitic vol] 90.3 fL Normal 80.0-94.0 [facility] Comment on above: Performed By: #### C BC ####[facility] Pdkpjuhopk3943 [place] [id number]. Garima Heraclio MONO # 0.1 103/ul Critically low 0.3-0.8 [facility] Comment on above: Performed By: #### C BC ####[facility] Fovmbljpqs9128 [place] [id number]. Garima Pulliam Monocytes/100 WBC (Bld) 0.9 % Critically low 1.7-12.0 [facility] Comment on above: Performed By: #### C BC ####[facility] Jxywequoum2355 [place] [id number]. Garima Pulliam NEUT # 5.6 103/ul Normal 1.4-6.5 [facility] Comment on above: Performed By: #### C BC ####[facility] Vfvhamtogp1081 [place] [id number]. Garima Pulliam Neutrophils/100 WBC (Bld) 86.2 % Critically high 43.0-75.0 [facility] Comment on above: Performed By: #### C BC ####[facility] Aukipltsih4922 [place] [address]Dr. Garima Pulliam Platelet mean volume (Bld) [Entitic vol] 9.1 fL Critically low 9.5-13.5 [facility] Comment on above: Performed By: #### C BC ####[facility] Ykencscmie9[address] [place], [place] [address]Dr. Garima Pulliam PLT 169 103/ul Normal 150-450 [facility] Comment on above: Performed By: #### C BC ####[facility] Emlqmelsmn[address] [place], [place] [address]Dr. Garima Pulliam RBC 5.17 106/ul Normal 4.70-6.10 [facility] Comment on above: Performed By: #### C BC ####[facility] Hlrheryzel[address] [place], [place] [address]Dr. Garima Pulliam WBC 6.5 103/ul Normal 4.0-11.0 [facility] Comment on above: Performed By: #### C BC ####[facility] Sbtqwzmnrv[address] [place], [place] [address]Dr. Garima Pulliam D-DIMERon 01-13-2023 D-DIMER 0.41 mg/L FEU Normal <=0.59 [facility] Comment on above: Performed By: #### D DIM ####[facility] Esrkfknads1858 [place] [address]Dr. Garima Pulliam D-DIMER COMMENTS SEE BELOW Normal [facility] Comment on above: Result [...] hospitalization. Performed By: #### D DIM ####[facility] Mgtzukbvrw[address] [place], [place] [address]Dr. Garima Pulliam PROF 14(COMP METB)on 023 Albumin [Mass/Vol] 3.4 g/dL Normal 3.4-5.0 [facility] Comment on above: Performed By: #### C MP ####[facility] Bymugswtub[address] [place], [place] [address]Dr. Garima Pulliam Albumin/Globulin [Mass ratio] 1.3 {ratio} Normal [facility] Comment on above: Performed By: #### C MP ####[facility] Aqyyyylltr[address] [place], [place] [address]Dr. Garima Pulliam ALP [Catalytic activity/Vol] 83 U/L Normal 46-116 [facility] Comment on above: Performed By: #### C MP ####[facility] Jtctlatcvl[address] [place], [place] [address]Dr. Garima Pulliam ALT [Catalytic activity/Vol] 25 U/L Normal 16-63 [facility] Comment on above: Performed By: #### C MP ####[facility] Tcppbrqfkn4319 [place] [address]Dr. Garima Pulliam Anion gap [Moles/Vol] 14.5 mmol/L Normal [facility] Comment on above: Performed By: #### C MP ####[facility] Bycueygbup[address] [place], [place] [address]Dr. Garima Pulliam AST [Catalytic activity/Vol] 19 U/L Normal 15-37 [facility] Comment on above: Performed By: #### C MP ####[facility] Srlmcndqtt[address] [place], [place] [address]Dr. Garima Pulliam Bilirubin [Mass/Vol] 0.4 mg/dL Normal 0.2-1.0 [facility] Comment on above: Performed By: #### C MP ####[facility] Erlblxovwz[address] [place], [place] [address]Dr. Garima Pulliam Calcium [Mass/Vol] 8.7 mg/dL Normal 8.5-10.1 [facility] Comment on above: Performed By: #### C MP ####[facility] Pfjobacknb[address] [place], [place] [address]Dr. Garima Pulliam Chloride [Moles/Vol] 104 mmol/L Normal 98-107 [facility] Comment on above: Performed By: #### C MP ####[facility] Fxmfxmbdge[address] [place], [place] [address]Dr. Garima Pulliam CO2 [Moles/Vol] 24.5 mmol/L Normal 21.0-32.0 [facility] Comment on above: Performed By: #### C MP ####[facility] Mfdsaswbct[address] [place], [place] [address]Dr. Garima Pulliam Creatinine [Mass/Vol] 0.70 mg/dL Normal 0.70-1.30 [facility] Comment on above: Performed By: #### C MP ####[facility] Pwcrjjwduo[address] [place], [place] [address]Dr. Garima Heraclio EGFR-AF SOUTH [place]FR[place] >60 Normal >=60 [facility] Comment on above: Performed By: #### C MP ####[facility] Qpsqpkfnmo[address] [place], [place] [address]Dr. Chapisrenu Heraclio EGFR-NON AF [place]FR[place] >60 Normal >=60 [facility] Comment on above: Performed By: #### C MP ####[facility] Enpsiwlghv[address] [place], [place] [address]Dr. Chapisrenu Pulliam Globulin (S) [Mass/Vol] 2.6 g/dL Normal [facility] Comment on above: Performed By: #### C MP ####[facility] Ehqxvutpva1766 [place] [address]Dr. Garima Pulliam Glucose [Mass/Vol] 196 mg/dL Critically high 74-106 [facility] Comment on above: Performed By: #### C MP ####[facility] Tcjgjlitmt0702 [place] [address]Dr. Garima Pulliam Potassium [Moles/Vol] 4.0 mmol/L Normal 3.5-5.1 [facility] Comment on above: Performed By: #### C MP ####[facility] Zkjkcrhjci[address] [place] [address]Dr. Garima Pulliam Protein [Mass/Vol] 6.0 g/dL Critically low 6.4-8.2 Th [facility] Comment on above: Performed By: #### C MP ####[facility] Goalbygkrm[address] [place], [place] [address]Dr. Garima Pulliam Sodium [Moles/Vol] 139 mmol/L Normal 136-145 [facility] Comment on above: Performed By: #### C MP ####[facility] Xigrrlxiqi[address] [place], [place] [address]Dr. Garima Pulliam Urea nitrogen [Mass/Vol] 7.0 mg/dL Normal 7.0-18.0 [facility] Comment on above: Performed By: #### C MP ####[facility] Joruzymsin[address] [place], [place] [address]Dr. Garima Heraclio Urea nitrogen/Creatinine [Mass ratio] 10.0 mg/mg Normal [facility] Comment on above: Performed By: #### C MP ####[facility] Pmbozphgll[address] [place], [place] [address]Dr. Garima Heraclio BNPon 01-12-2023 Natriuretic peptide B (Bld) [Mass/Vol] 141.0 pg/mL Normal <=900.0 [facility] Comment on above: Performed By: #### C MP, BNP, HSTROPN ####[facility] Lxihmuibnk057[address] [place], [place] [address]Dr. Garima Heraclio CBC AUTO DIFFon 01-12-2023 BASO # 0.0 103/ul Normal 0.0-0.1 [facility] Comment on above: Performed By: #### C BC ####[facility] Jfeorvhxvu4[address] [place] [id number]. Garima Heraclio Basophils/100 WBC (Bld) 0.2 % Normal 0.2-2.0 [facility] Comment on above: Performed By: #### C BC ####[facility] Dpijtpaxsa[address] [place] [address]Dr. Garima Heraclio EO # 0.2 103/ul Normal 0.0-0.7 [facility] Comment on above: Performed By: #### C BC ####[facility] Hfmbwdhhvy7674 [place] [address]Dr. Garima Heraclio Eosinophils/100 WBC (Bld) 2.7 % Normal 0.9-7.0 [facility] Comment on above: Performed By: #### C BC ####[facility] Dyplvmoqng[address] [place], [place] [address]Dr. Garima Pluliam Erythrocyte distribution width (RBC) [Ratio] 13.3 % Normal 11.0-15.0 [facility] Comment on above: Performed By: #### C BC ####[facility] Hznbrdlwoy735[address] [place], [place] [address]Dr. Garima Pulliam Hematocrit (Bld) [Volume fraction] 42.3 % Normal 42.0-54.0 [facility] Comment on above: Performed By: #### C BC ####[facility] Eohlikzcfq[address] [place], [place] [address]Dr. Garima Pulliam Hemoglobin (Bld) [Mass/Vol] 14.3 g/dL Normal 14.0-18.0 [facility] Comment on above: Performed By: #### C BC ####[facility] Hsyeexribu[address] [place], [place] [address]Dr. Garima Pulliam IG # 0.02 10e3/ul Normal 0.00-0.03 [facility] Comment on above: Performed By: #### C BC ####[facility] Sivbmlzivx5928 [place] [id number]. Garima Pulliam IG % 0.2 % Normal 0.0-0.5 [facility] Comment on above: Performed By: #### C BC ####[facility] Pyobxlxyve2599 [place] [address]Dr. Garima Pulliam LYMPH # 2.6 103/ul Normal 1.2-3.8 [facility] Comment on above: Performed By: #### C BC ####[facility] Twuiqysbkp0074 [place] [id number]. Garima Heraclio Lymphocytes/100 WBC (Bld) 29.6 % Normal 20.5-60.0 [facility] Comment on above: Performed By: #### C BC ####[facility] Dhokpdtxid1381 [place] [address]Dr. Garima Heraclio MANUAL DIFF REQ NO Normal [facility] Comment on above: Performed By: #### C BC ####[facility] Voaanolrfr4874 [place] [id number]. Garima Pulliam MCH (RBC) [Entitic mass] 30.2 pg Normal 25.9-34.0 [facility] Comment on above: Performed By: #### C BC ####[facility] Espjwyttrl3051 [place] [address]Dr. Garima Pulliam MCHC (RBC) [Mass/Vol] 33.8 g/dL Normal 29.9-35.2 [facility] Comment on above: Performed By: #### C BC ####[facility] Ymlaxsknar6344 [place] [id number]. Garima Pulliam MCV (RBC) [Entitic vol] 89.2 fL Normal 80.0-94.0 [facility] Comment on above: Performed By: #### C BC ####[facility] Bovnsiejbg246[address] [place], [place] [address]Dr. Chapisrenu Pulliam MONO # 0.7 103/ul Normal 0.3-0.8 [facility] Comment on above: Performed By: #### C BC ####[facility] Kaijphctfc7613 [place] [address]Dr. Garima Pulliam Monocytes/100 WBC (Bld) 8.3 % Normal 1.7-12.0 [facility] Comment on above: Performed By: #### C BC ####[facility] Wxuavjgipb1033 [place] [address]Dr. Garima Pulliam NEUT # 5.1 103/ul Normal 1.4-6.5 [facility] Comment on above: Performed By: #### C BC ####[facility] Oyfqaovmll4562 [place] [address]Dr. Garima Pulliam Neutrophils/100 WBC (Bld) 59.0 % Normal 43.0-75.0 [facility] Comment on above: Performed By: #### C BC ####[facility] Eygyjfkhiv3149 [place] [address]Dr. Garima Pulliam Platelet mean volume (Bld) [Entitic vol] 8.7 fL Critically low 9.5-13.5 [facility] Comment on above: Performed By: #### C BC ####[facility] Ykmwpcpvii6399 [place] [address]Dr. Garima Pulliam PLT 182 103/ul Normal 150-450 [facility] Comment on above: Performed By: #### C BC ####[facility] Bncunwrxef5737 [place] [id number]. Garima Pulliam RBC 4.74 106/ul Normal 4.70-6.10 [facility] Comment on above: Performed By: #### C BC ####[facility] P[address] [place], [place] [address]Dr. Garima Pulliam WBC 8.7 103/ul Normal 4.0-11.0 [facility] Comment on above: Performed By: #### C BC ####[facility] Tkmzgxwjyb[address] [place], [place] [address]Dr. Garima Pulliam Covid-19 PCR (CVDTB)on 12-25 SARS-CoV-2 (COVID-19) RNA MARIE+probe Ql (Unsp spec) Not detected Normal NOT DETECTED [facility] Comment on above: Result Comment: [...] for this test is supported by the [place] Coordinator of Health and Human Service's declaration that [...] used). Performed By: #### C VDTBH ####[facility] Sahqeutzxj9859 [place] [address]Dr. Garima Pulliam PROF 14(COMP METB)on 023 Albumin [Mass/Vol] 3.6 g/dL Normal 3.4-5.0 [facility] Comment on above: Performed By: #### C MP, BNP, HSTROPN ####[facility] Bklqdifwld3220 [place] [address]Dr. Garima Pulliam Albumin/Globulin [Mass ratio] 1.5 {ratio} Normal [facility] Comment on above: Performed By: #### C MP, BNP, HSTROPN ####[facility] Pfmjfodajm8388 [place] [address]Dr. Garima Pulliam ALP [Catalytic activity/Vol] 79 U/L Normal 46-116 [facility] Comment on above: Performed By: #### C MP, BNP, HSTROPN ####[facility] Fdhlrdlzyl5020 [place] [address]Dr. Garima Pulliam ALT [Catalytic activity/Vol] 27 U/L Normal 16-63 [facility] Comment on above: Performed By: #### C MP, BNP, HSTROPN ####[facility] Camdeatkvd8823 [place] [address]Dr. Garima Pulliam Anion gap [Moles/Vol] 11.7 mmol/L Normal Th [facility] Comment on above: Performed By: #### C MP, BNP, HSTROPN ####[facility] Mzkeoqlyyd0449 [place] [address]Dr. Garima Pulliam AST [Catalytic activity/Vol] 21 U/L Normal 15-37 [facility] Comment on above: Performed By: #### C MP, BNP, HSTROPN ####[facility] Qazakzyaya3102 [place] [address]Dr. Garima Pulliam Bilirubin [Mass/Vol] 0.3 mg/dL Normal 0.2-1.0 [facility] Comment on above: Performed By: #### C MP, BNP, HSTROPN ####[facility] Besswubwkz7244 [place] [address]Dr. Garima Pulliam Calcium [Mass/Vol] 8.9 mg/dL Normal 8.5-10.1 [facility] Comment on above: Performed By: #### C MP, BNP, HSTROPN ####[facility] Imiatkzlxe2191 [place] [address]Dr. Garima Pulliam Chloride [Moles/Vol] 107 mmol/L Normal 98-107 [facility] Comment on above: Performed By: #### C MP, BNP, HSTROPN ####[facility] Uhbyrzrmgc6788 [place] [address]Dr. Garima Pulliam CO2 [Moles/Vol] 26.0 mmol/L Normal 21.0-32.0 [facility] Comment on above: Performed By: #### C MP, BNP, HSTROPN ####[facility] Juwrwypfkt8151 [place] [address]Dr. Garima Pulliam Creatinine [Mass/Vol] 0.65 mg/dL Critically low 0.70-1.30 [facility] Comment on above: Performed By: #### C MP, BNP, HSTROPN ####[facility] Iicvltdxlu9699 [place] [address]Dr. Yilan Pulliam EGFR-AF SOUTH AFRICAN >60 Normal >=60 [facility] Comment on above: Performed By: #### C MP, BNP, HSTROPN ####[facility] Tmynfrdinc8175 [place] [address]Dr. Garima Pulliam EGFR-NON AF SOU[place] AFR[place] >60 Normal >=60 [facility] Comment on above: Performed By: #### C MP, BNP, HSTROPN ####[facility] Tioceglexb0248 [place] [address]Dr. Garima Pulliam Globulin (S) [Mass/Vol] 2.4 g/dL Normal [facility] Comment on above: Performed By: #### C MP, BNP, HSTROPN ####[facility] Bqupnuubzy9[address] [place], [place] [address]Dr. Garima Pulliam Glucose [Mass/Vol] 85 mg/dL Normal 74-106 [facility] Comment on above: Performed By: #### C MP, BNP, HSTROPN ####[facility] Dpyemjwkgh2609 [place] [address]Dr. Garima Pulliam Potassium [Moles/Vol] 3.7 mmol/L Normal 3.5-5.1 [facility] Comment on above: Performed By: #### C MP, BNP, HSTROPN ####[facility] Acqigrblxp0188 [place] [address]Dr. Garima Pulliam Protein [Mass/Vol] 6.0 g/dL Critically low 6.4-8.2 [facility] Comment on above: Performed By: #### C MP, BNP, HSTROPN ####[facility] Iclskractc1789 [place] [address]Dr. Garima Pulliam Sodium [Moles/Vol] 141 mmol/L Normal 136-145 [facility] Comment on above: Performed By: #### C MP, BNP, HSTROPN ####[facility] Gnyuxzwrgd3113 [place] [address]Dr. Garima Pulliam Urea nitrogen [Mass/Vol] 5.0 mg/dL Critically low 7.0-18.0 [facility] Comment on above: Performed By: #### C MP, BNP, HSTROPN ####[facility] Csetkzlonq5771 [place] [address]Dr. Garima Pulliam Urea nitrogen/Creatinine [Mass ratio] 7.7 mg/mg Normal [facility] Comment on above: Performed By: #### C MP, BNP, HSTROPN ####[facility] Lnvxxccydm8483 [place] [address]Dr. Garima Pulliam PROTIMEon 01-12-2023 INR Coag (PPP) [Relative time] 1.16 {INR} Normal [facility] Comment on above: Performed By: #### P TT, PT ####[facility] Tascpfadal2938 [place] [address]Dr. Garima Pulliam INR GUIDELINES SEE BELOW Normal [facility] Comment on above: Result Comment: WESLEY RED INR: 2.0 - 3.0 CONDITIONS NOT LISTED BELOW 2.5 - 3.5 FOR PROSTHETIC HEART VALVE REPLACEMENT 2.5 - 3.5 RECURRENT THROMBOSIS Performed By: #### P TT, PT ####[facility] Tnjdxypmcb[address] [place], [place] [address]Dr. Garima Pulliam PT Coag (PPP) [Time] 12.2 s Critically high 9.0-11.6 [facility] Comment on above: Performed By: #### P TT, PT ####[facility] Pcaleclrwj6607 [place] [address]Dr. Garima Pulliam PTTon 01-12-2023 aPTT Coag (Bld) [Time] 29.1 s Normal 22.3-36.2 [facility] Comment on above: Performed By: #### P TT, PT ####[facility] Llgsiadftv[address] [place], [place] [address]Dr. Garima Pulliam TROPONIN, HIGH SENSITIVITYon 01-12-2023 HSTROP 10.3 pg/mL Normal 4.0-76.1 [facility] Comment on above: Result Comment: CUT- OFF POINTS HAVE BEEN ESTABLISHED BASED ON THE FOURTH UNIVERSAL DEFINITIONS OF MYOCARDIALINFARCTION. THE UPPER REFERENCE LIMIT (URL) OF TROPONIN, DEFINED THE 99TH PERCENTILE OFcTnI DISTRIBUTION IN A REFERENCE POPULATION, HAS BEEN CONFIRMED THE DECISION THRESHOLDFOR [place] DIAGNOSIS. Performed By: #### H STROPN ####[facility] Mlavkpxxfv9188 [place] [address]Dr. Garima Pulliam HSTROP 9.2 pg/mL Normal 4.0-76.1 [facility] Comment on above: Result Comment: CUT- OFF POINTS HAVE BEEN ESTABLISHED BASED ON THE FOURTH UNIVERSAL DEFINITIONS OF MYOCARDIALINFARCTION. THE UPPER REFERENCE LIMIT (URL) OF TROPONIN, DEFINED THE 99TH PERCENTILE OFcTnI DISTRIBUTION IN A REFERENCE POPULATION, HAS BEEN CONFIRMED THE DECISION THRESHOLDFOR [place] DIAGNOSIS. Performed By: #### C MP, BNP, HSTROPN ####[facility] Hwfnaizbxv5202 [place] [address]Dr. Garima Pulliam XR CHEST 1 Von 01-12-2023 XR CHEST 1 V Normal [facility] XR CHEST 1 Von 01-01-2023 XR CHEST 1 V Normal [facility] CARDIAC NASH 3-6on 3 CK [Catalytic activity/Vol] 196 U/L Normal 39-308 [facility] Comment on above: Performed By: #### C MREP ####[facility] Kogwdheliz7745 [place] [address]Dr. Garima Pulliam CK.MB [Mass/Vol] 7.41 ng/mL Critically high <=3.60 [facility] Comment on above: Performed By: #### C MREP ####[facility] Tfqldznunz4722 [place] [address]Dr. Garima Pulliam HSTROP 10.3 pg/mL Normal 4.0-76.1 [facility] Comment on above: Result Comment: CUT- OFF POINTS HAVE BEEN ESTABLISHED BASED ON THE FOURTH UNIVERSAL DEFINITIONS OF MYOCARDIALINFARCTION. THE UPPER REFERENCE LIMIT (URL) OF TROPONIN, DEFINED THE 99TH PERCENTILE OFcTnI DISTRIBUTION IN A REFERENCE POPULATION, HAS BEEN CONFIRMED THE DECISION THRESHOLDFOR [place] DIAGNOSIS. Performed By: #### C MREP ####[facility] Skkfcoihgr3482 [place] [id number]. Garima Pulliam XR CHEST 1 Von 12-26-2022 XR CHEST 1 V Normal [facility] BNPon 12-25-2022 Natriuretic peptide B (Bld) [Mass/Vol] 98.0 pg/mL Normal <=900.0 [facility] Comment on above: Performed By: #### B MARVIN FRENCH CMADM ####[facility] Usvhglddui3419 [place] [address]Dr. Garima Pulliam CARDIAC NASH ADMITon 023 CK [Catalytic activity/Vol] 208 U/L Normal 39-308 [facility] Comment on above: Performed By: #### B MARVIN FRENCH CMADM ####[facility] Cbvgfclocq3210 [place] [address]Dr. Garima Pulliam CK.MB [Mass/Vol] 7.63 ng/mL Critically high <=3.60 [facility] Comment on above: Performed By: #### B MARVIN FRENCH CMADM ####[facility] Iauzlacryo[address] [place], [place] [address]Dr. Garima Pulliam HSTROP 8.8 pg/mL Normal 4.0-76.1 [facility] Comment on above: Result Comment: CUT- OFF POINTS HAVE BEEN ESTABLISHED BASED ON THE FOURTH UNIVERSAL DEFINITIONS OF MYOCARDIALINFARCTION. THE UPPER REFERENCE LIMIT (URL) OF TROPONIN, DEFINED THE 99TH PERCENTILE OFcTnI DISTRIBUTION IN A REFERENCE POPULATION, HAS BEEN CONFIRMED THE DECISION THRESHOLDFOR [place] DIAGNOSIS. Performed By: #### B MARVIN FRENCH CMADM ####[facility] Kslovokdxr[address] [place], [place] [address]Dr. Garima Pulliam DORIS 83 ng/mL Normal 16-96 [facility] Comment on above: Performed By: #### B MARVIN FRENCH CMADM ####[facility] Xqeuvhllah[address] [place], [place] [address]Dr. Garima Pulliam CBC AUTO DIFFon 12-25-2022 BASO # 0.0 103/ul Normal 0.0-0.1 [facility] Comment on above: Performed By: #### C BC ####[facility] Qyghldpmkv[address] [place], [place] [address]Dr. Garima Pulliam Basophils/100 WBC (Bld) 0.0 % Critically low 0.2-2.0 [facility] Comment on above: Performed By: #### C BC ####[facility] Uxzzkqwhec8944 [place] [address]Dr. Garima Pulliam EO # 0.0 103/ul Normal 0.0-0.7 [facility] Comment on above: Performed By: #### C BC ####[facility] Ksksciewbi[address] [place], [place] [address]Dr. Garima Pulliam Eosinophils/100 WBC (Bld) 0.7 % Critically low 0.9-7.0 [facility] Comment on above: Performed By: #### C BC ####[facility] Xukgfqinmr[address] [place], [place] [address]Dr. Garima Pulliam Erythrocyte distribution width (RBC) [Ratio] 13.4 % Normal 11.0-15.0 [facility] Comment on above: Performed By: #### C BC ####[facility] Chelzdrxhx24[address] [place], [place] [address]Dr. Garima Pulliam Hematocrit (Bld) [Volume fraction] 42.9 % Normal 42.0-54.0 [facility] Comment on above: Performed By: #### C BC ####[facility] Grufmcacbp16[address] [place], [place] [address]Dr. Garima Pulliam Hemoglobin (Bld) [Mass/Vol] 14.4 g/dL Normal 14.0-18.0 [facility] Comment on above: Performed By: #### C BC ####[facility] Glnhifdvll[address] [place], [place] [address]Dr. Garima Pulliam IG # 0.00 10e3/ul Normal 0.00-0.03 [facility] Comment on above: Performed By: #### C BC ####[facility] Wjkqvvmnao[address] [place], [place] [address]Dr. Garima Pulliam IG % 0.0 % Normal 0.0-0.5 [facility] Comment on above: Performed By: #### C BC ####[facility] Zakeokbwie[address] [place], [place] [address]Dr. Garima Pulliam LYMPH # 2.4 103/ul Normal 1.2-3.8 [facility] Comment on above: Performed By: #### C BC ####[facility] Zzybryoqez9767 [place] [id number]. Chapisrenu Pulliam Lymphocytes/100 WBC (Bld) 29.2 % Normal 20.5-60.0 [facility] Comment on above: Performed By: #### C BC ####[facility] Eaanxbdybp6481 [place] [id number]. Garima Pulliam MANUAL DIFF REQ NO Normal [facility] Comment on above: Performed By: #### C BC ####[facility] Uorzilzoon8040 [place] [id number]. Garima Pulliam MCH (RBC) [Entitic mass] 30.7 pg Normal 25.9-34.0 [facility] Comment on above: Performed By: #### C BC ####[facility] Ldbgngvntu[address] [place], [place] [address]Dr. Garima Pulliam MCHC (RBC) [Mass/Vol] 33.6 g/dL Normal 29.9-35.2 [facility] Comment on above: Performed By: #### C BC ####[facility] Mcmlqipcji044[address] [place], [place] [address]Dr. Garima Pulliam MCV (RBC) [Entitic vol] 91.5 fL Normal 80.0-94.0 [facility] Comment on above: Performed By: #### C BC ####[facility] Efkzfztkwq[address] [place], [place] [address]Dr. Garima Pulliam MONO # 0.0 103/ul Critically low 0.3-0.8 [facility] Comment on above: Performed By: #### C BC ####[facility] Smdstppsfi6769 [place] [address]Dr. Garima Pulliam Monocytes/100 WBC (Bld) 8.0 % Normal 1.7-12.0 [facility] Comment on above: Performed By: #### C BC ####[facility] Cmgyfmderb[address] [place], [place] [address]Dr. Garima Pulliam NEUT # 5.1 103/ul Normal 1.4-6.5 [facility] Comment on above: Performed By: #### C BC ####[facility] Qrfbapqsyw2890 [place], [place] [address]Oy. Garima Pulliam Neutrophils/100 WBC (Bld) 62.8 % Normal 43.0-75.0 [facility] Comment on above: Performed By: #### C BC ####[facility] Dgovlilwlk2570 [place], [place] [address]Sk. Garima Pulliam Platelet mean volume (Bld) [Entitic vol] 8.6 fL Critically low 9.5-13.5 [facility] Comment on above: Performed By: #### C BC ####[facility] Jzxrlhyico3486 [place] [id number]. Garima Pulliam PLT 200 103/ul Normal 150-450 [facility] Comment on above: Performed By: #### C BC ####[facility] Bbjmfewabj6449 [place] [id number]. Garima Pulliam RBC 4.69 106/ul Critically low 4.70-6.10 [facility] Comment on above: Performed By: #### C BC ####[facility] Hqjfqshctt9848 [place], [place] [address]Wb. Garima Pulliam WBC 8.2 103/ul Normal 4.0-11.0 [facility] Comment on above: Performed By: #### C BC ####[facility] Faqcxkvexc6962 [place], [place] [address]By. Garima Pulliam [facility])on SARS-CoV-2 (COVID-19) RNA MARIE+probe Ql (Unsp spec) Not detected Normal NOT DETECTED [facility] Comment on above: Result Comment: [...] for this test is supported by the [place] of Health and Human Service's declaration that [...] used). Performed By: #### C VDTBH ####[facility] Ymjzhemspj[address] [place], [place] [address]Dr. Garima Pulliam INFLUENZA A AND B AGon 12-25 INFLUANEGH SEE BELOW Normal [facility] Comment on above: Result Comment: Nega tive for Flu A protein angiten. Infection due to Flu A cannot be ruled out. Flu A angiten in the sample may be below the detection limit of the test. Performed By: #### I NFLUAB ####[facility] Lugcspuobd[address] [place], [place] [address]Dr. Garima Pulliam INFLUBNEGH SEE BELOW Normal [facility] Comment on above: Result Comment: Nega tive for Flu B protein antigen. Infection due to Flu B cannot be ruled out. Flu B antigen in the sample may be below the detection limit of the test. Performed By: #### I NFLUAB ####[facility] Cgleaumoga[address] [place], [place] [address]Dr. Garima Pulliam INFLUENZA A AG Negative Normal NEGATIVE SEE COMMENT [facility] Comment on above: Performed By: #### I NFLUAB ####[facility] Mhtfzlujnp66[address] [place], [place] [address]Dr. renu [facility] INFLUENZA B AG Negative Normal NEGATIVE SEE COMMENT [facility] Comment on above: Performed By: #### I NFLUAB ####[facility] Jxusfgdyzb04[address] [place], [place] [address]Dr. Garima Pulliam PROF CHEM 8 (BAS METB)on Anion gap [Moles/Vol] 11.1 mmol/L Normal Th [facility] Comment on above: Performed By: #### B TEACHER OF THE VISUALLY IMPAIRED, BMP, CMADM ####[facility] Tpipawynil[address] [place], [place] [address]Dr. Garima Pulliam Calcium [Mass/Vol] 8.5 mg/dL Normal 8.5-10.1 [facility] Comment on above: Performed By: #### B TEACHER OF THE VISUALLY IMPAIRED, MARVIN, CMADM ####[facility] Jepwwnmqwn2259 [place] [id number]. Garima Pulliam Chloride [Moles/Vol] 106 mmol/L Normal 98-107 [facility] Comment on above: Performed By: #### B TEACHER OF THE VISUALLY IMPAIRED, BMP, CMADM ####[facility] Oummrdslxa4227 [place] [address]Dr. Garima Pulliam CO2 [Moles/Vol] 27.4 mmol/L Normal 21.0-32.0 [facility] Comment on above: Performed By: #### B TEACHER OF THE VISUALLY IMPAIRED, MARVIN, CMADM ####[facility] Tpysrwklqv8827 [place] [address]Dr. Garima Pulliam Creatinine [Mass/Vol] 0.65 mg/dL Critically low 0.70-1.30 [facility] Comment on above: Performed By: #### B TEACHER OF THE VISUALLY IMPAIRED, MARVIN, CMADM ####[facility] Cgpsfwegpo9812 [place] [address]Dr. Garima Pulliam EGFR-AF SOU[place] AFRICAN >60 Normal >=60 [facility] Comment on above: Performed By: #### B TEACHER OF THE VISUALLY IMPAIRED, BMP, CMADM ####[facility] Wljqviigky0672 [place] [address]Dr. Garima Pulliam EGFR-NON AF [place] >60 Normal >=60 [facility] Comment on above: Performed By: #### B TEACHER OF THE VISUALLY IMPAIRED, BMP, CMADM ####[facility] Ifpqogjnhr0013 [place] [address]Dr. Garima Pulliam Glucose [Mass/Vol] 140 mg/dL Critically high 74-106 [facility] Comment on above: Performed By: #### B TEACHER OF THE VISUALLY IMPAIRED, BMP, CMADM ####[facility] Ksixnkyyjx3949 [place] [address]Dr. Garima Pulliam Potassium [Moles/Vol] 3.5 mmol/L Normal 3.5-5.1 [facility] Comment on above: Performed By: #### B TEACHER OF THE VISUALLY IMPAIRED, BMP, CMADM ####[facility] Eheodeyhqo6584 [place] [address]Dr. Garima Pulliam Sodium [Moles/Vol] 141 mmol/L Normal 136-145 [facility] Comment on above: Performed By: #### B TEACHER OF THE VISUALLY IMPAIRED, BMP, CMADM ####[facility] Vsqxfpkvaz9100 [place] [address]Dr. Garima Pulliam Urea nitrogen [Mass/Vol] 8.0 mg/dL Normal 7.0-18.0 [facility] Comment on above: Performed By: #### B TEACHER OF THE VISUALLY IMPAIRED, BMP, CMADM ####[facility] Xlvmlxzliq1089 [place] [address]Dr. Garima Pulliam Urea nitrogen/Creatinine [Mass ratio] 12.3 mg/mg Normal [facility] [facility] Comment on above: Performed By: #### B TEACHER OF THE VISUALLY IMPAIRED, BMP, CMADM ####[facility] Icvbikkwaq[address] [place], [place] [address]Dr. Garima Pulliam CARDIAC NASH ADMITon 023 CK [Catalytic activity/Vol] 165 U/L Normal 39-308 [facility] Comment on above: Performed By: #### B DAVID, CMADM ####[facility] Zisqmjgycw[address] [place], [place] [address]Dr. Garima Pulliam CK.MB [Mass/Vol] 6.48 ng/mL Critically high <=3.60 [facility] Comment on above: Performed By: #### B MP, CMADM ####[facility] Uohdnhtzcc[address] [place], [place] [address]Dr. Garima Pulliam HSTROP 11.7 pg/mL Normal 4.0-76.1 [facility] Comment on above: Result Comment: CUT- OFF POINTS HAVE BEEN ESTABLISHED BASED ON THE FOURTH UNIVERSAL DEFINITIONS OF MYOCARDIALINFARCTION. THE UPPER REFERENCE LIMIT (URL) OF TROPONIN, DEFINED THE 99TH PERCENTILE OFcTnI DISTRIBUTION IN A REFERENCE POPULATION, HAS BEEN CONFIRMED THE DECISION THRESHOLDFOR [place] DIAGNOSIS. Performed By: #### B MP, CMADM ####[facility] Deptruiqcy[address] [place], [place] [address]Dr. Garima Pulliam DORIS 83 ng/mL Normal 16-96 [facility] Comment on above: Performed By: #### B MP, CMADM ####[facility] [address]hrxhreffs[address] [place] [address]Dr. Garima Pulliam CBC AUTO DIFFon 12-10-2022 BASO # 0.0 103/ul Normal 0.0-0.1 [facility] Comment on above: Performed By: #### C BC ####[facility] Nqryolrlsa197[address] [place], [place] [address]Dr. Garima Heraclio Basophils/100 WBC (Bld) 0.3 % Normal 0.2-2.0 [facility] Comment on above: Performed By: #### C BC ####[facility] Lqfahyjkvw[address] [place], [place] [address]Dr. Garima Pulliam EO # 0.1 103/ul Normal 0.0-0.7 [facility] Comment on above: Performed By: #### C BC ####[facility] Hgsinfqlsi[address] [place], [place] [address]Dr. Garima Pulliam Eosinophils/100 WBC (Bld) 0.4 % Critically low 0.9-7.0 [facility] Comment on above: Performed By: #### C BC ####[facility] Bitwmqnyzu[address] [place], [place] [address]Dr. Garima Pulliam Erythrocyte distribution width (RBC) [Ratio] 13.2 % Normal 11.0-15.0 [facility] Comment on above: Performed By: #### C BC ####[facility] Grxcqsbnsl237[address] [place], [place] [address]Dr. Garima Pulliam Hematocrit (Bld) [Volume fraction] 42.4 % Normal 42.0-54.0 [facility] Comment on above: Performed By: #### C BC ####[facility] Nssgplbfkc54[address] [place], [place] [address]Dr. Garima Pulliam Hemoglobin (Bld) [Mass/Vol] 14.4 g/dL Normal 14.0-18.0 [facility] Comment on above: Performed By: #### C BC ####[facility] K[address]febwaom[address] [place] [id number]. Garima Heraclio IG # 0.05 10e3/ul Critically high 0.00-0.03 [facility] Comment on above: Performed By: #### C BC ####[facility] Vqriwqcohv[address] [place] [address]Dr. Garima Heraclio IG % 0.4 % Normal 0.0-0.5 [facility] Comment on above: Performed By: #### C BC ####[facility] Inzplkuokz864[address] [place], [place] [address]Dr. Garima Pulliam LYMPH # 0.8 103/ul Critically low 1.2-3.8 [facility] Comment on above: Performed By: #### C BC ####[facility] Ghcgvrosut[address] [place], [place] [address]Dr. Chapisrenu Pulliam Lymphocytes/100 WBC (Bld) 6.5 % Critically low 20.5-60.0 [facility] Comment on above: Performed By: #### C BC ####[facility] Qxtuwihdnd[address] [place], [place] [address]Dr. Chapisrenu Pulliam MANUAL DIFF REQ NO Normal [facility] Comment on above: Performed By: #### C BC ####[facility] Oarlelurew[address] [place], [place] [address]DrAdalberto Garima Pulliam MCH (RBC) [Entitic mass] 30.5 pg Normal 25.9-34.0 [facility] Comment on above: Performed By: #### C BC ####[facility] Ygktingafw313[address] [place], [place] [address]DrAdalberto Garima Heraclio MCHC (RBC) [Mass/Vol] 34.0 g/dL Normal 29.9-35.2 [facility] Comment on above: Performed By: #### C BC ####[facility] Tdnthdxxxe[address] [place], [place] [address]DrAdalberto Garima Heraclio MCV (RBC) [Entitic vol] 89.8 fL Normal 80.0-94.0 [facility] Comment on above: Performed By: #### C BC ####[facility] Dswgrrhysp[address] [place], [place] [address]Dr. Garima Pulliam MONO # 0.2 103/ul Critically low 0.3-0.8 [facility] Comment on above: Performed By: #### C BC ####[facility] Irbactyejy[address] [place] [id number]. Garima Pulliam Monocytes/100 WBC (Bld) 2.0 % Normal 1.7-12.0 [facility] Comment on above: Performed By: #### C BC ####[facility] Gghpyqzeid4[address] [place] [address]Dr. Chapisrenu Heraclio NEUT # 10.5 103/ul Critically high 1.4-6.5 [facility] Comment on above: Performed By: #### C BC ####[facility] Xgbujwvhdm[address] [place] [address]Dr. Garima Pulliam Neutrophils/100 WBC (Bld) 90.4 % Critically high 43.0-75.0 [facility] Comment on above: Performed By: #### C BC ####[facility] Bmpzqzbapp020[address] [place] [address]Dr. Garima Pulliam Platelet mean volume (Bld) [Entitic vol] 9.4 fL Critically low 9.5-13.5 [facility] Comment on above: Performed By: #### C BC ####[facility] Zreovrkvwd[address] [place] [address]Dr. Garima Pulliam PLT 198 103/ul Normal 150-450 [facility] Comment on above: Performed By: #### C BC ####[facility] Iqvruefhtv32[address] [place] [address]Dr. Garima Pulliam RBC 4.72 106/ul Normal 4.70-6.10 [facility] Comment on above: Performed By: #### C BC ####[facility] Bohrtbabel7288 [place] [id number]. Garima Pulliam WBC 11.6 103/ul Critically high 4.0-11.0 [facility] Comment on above: Performed By: #### C BC ####[facility] Tiasjrsfhu[address] [place] [address]DrAdalberto Pulliam PROF CHEM 8 (BAS METB)on Anion gap [Moles/Vol] 11.3 mmol/L Normal Th [facility] Comment on above: Performed By: #### B NANCY HERNANDEZ ####[facility] Zllbzpmngx7[address] [place] [address]Dr. Garima Pulliam Calcium [Mass/Vol] 8.9 mg/dL Normal 8.5-10.1 [facility] Comment on above: Performed By: #### B NANCY HERNANDEZ ####[facility] Nphorohwrd[address] [place] [address]Dr. Garima Pulliam Chloride [Moles/Vol] 103 mmol/L Normal 98-107 [facility] Comment on above: Performed By: #### B NANCY HERNANDEZ ####[facility] Ibtvjhltws[address] [place], [place] [address]Dr. Garima Pulliam CO2 [Moles/Vol] 28.2 mmol/L Normal 21.0-32.0 [facility] Comment on above: Performed By: #### NANCY Larkin MP ####[facility] Acmwjtdqqn53[address] [place] [address]Dr. Chapisrenu Pulliam Creatinine [Mass/Vol] 0.60 mg/dL Critically low 0.70-1.30 [facility] Comment on above: Performed By: #### NANCY Larkin MP ####[facility] Ulclbqbxae[address] [place] [address]Dr. Garima Pulliam EGFR-AF SOUTH AFRICAN >60 Normal >=60 [facility] Comment on above: Performed By: #### NANCY Larkin MP ####[facility] Opnesjcyyi[address] [place] [address]Dr. Garima Pulliam EGFR-NON AF SOUTH AFRICAN >60 Normal >=60 [facility] Comment on above: Performed By: #### NANCY Larkin MP ####[facility] Odhaphuufq[address] [place], [place] [address]Dr. Garima Pulliam Glucose [Mass/Vol] 166 mg/dL Critically high 74-106 [facility] Comment on above: Performed By: #### B MP, CMADM ####[facility] Cylnmfecuz[address] [place] [address]Dr. Garima Pulliam Potassium [Moles/Vol] 3.5 mmol/L Normal 3.5-5.1 [facility] Comment on above: Performed By: #### B MP, CMADM ####[facility] Ivkycdpthr38[address] [place] [address]Dr. Garima Pulliam Sodium [Moles/Vol] 139 mmol/L Normal 136-145 [facility] Comment on above: Performed By: #### B DAVID, CMADM ####[facility] Hqqoiszqpu09[address] [place] [address]Dr. Garima Heraclio Urea nitrogen [Mass/Vol] 9.0 mg/dL Normal 7.0-18.0 [facility] Comment on above: Performed By: #### B DAVID, NANCY ####[facility] Tixujviofc187[address] [place], [place] [address]Dr. Garima Heraclio Urea nitrogen/Creatinine [Mass ratio] 15.0 mg/mg Normal [facility] Comment on above: Performed By: #### B DAVID, CMAANA ROSA ####[facility] Hcmmvlkmro[address] [place], [place] [address]Dr. Garima Pulliam XR CHEST 1 Von 12-10-2022 XR CHEST 1 V Normal [facility] BNPon 11-27-2022 Natriuretic peptide B (Bld) [Mass/Vol] 95.0 pg/mL Normal <=900.0 [facility] Comment on above: Performed By: #### C MP, HSTROPN, BNP ####[facility] Xokrjfkhmz[address] [place], [place] [address]Dr. Garima Heraclio CBC AUTO DIFFon 11-27-2022 BASO # 0.0 103/ul Normal 0.0-0.1 [facility] Comment on above: Performed By: #### C BC ####[facility] Zaxipohzmz[address] [place], [place] [address]Dr. Garima Heraclio Basophils/100 WBC (Bld) 0.2 % Normal 0.2-2.0 [facility] Comment on above: Performed By: #### C BC ####[facility] Xnmgvwpllk2850 [place] [id number]. Garima Pulliam EO # 0.2 103/ul Normal 0.0-0.7 [facility] Comment on above: Performed By: #### C BC ####[facility] Btedrumcmv2937 [place] [address]Dr. Garima Pulliam Eosinophils/100 WBC (Bld) 2.0 % Normal 0.9-7.0 [facility] Comment on above: Performed By: #### C BC ####[facility] Ovxlxwwive146[address] [place], [place] [address]Dr. Garima Pulliam Erythrocyte distribution width (RBC) [Ratio] 13.2 % Normal 11.0-15.0 [facility] Comment on above: Performed By: #### C BC ####[facility] Yarlfsyjki188[address] [place], [place] [address]Dr. Garima Pulliam Hematocrit (Bld) [Volume fraction] 42.4 % Normal 42.0-54.0 [facility] Comment on above: Performed By: #### C BC ####[facility] Qjavwixdcm947[address] [place], [place] [address]Dr. Garima Pulliam Hemoglobin (Bld) [Mass/Vol] 14.4 g/dL Normal 14.0-18.0 [facility] Comment on above: Performed By: #### C BC ####[facility] Hpkdciwmwr187[address] [place], [place] [address]Dr. Garima Pulliam IG # 0.04 10e3/ul Critically high 0.00-0.03 [facility] Comment on above: Performed By: #### C BC ####[facility] Wucqarwfag55[address] [place], [place] [address]Dr. Garima Pulliam IG % 0.4 % Normal 0.0-0.5 [facility] Comment on above: Performed By: #### C BC ####[facility] Giugpszixi[address] [place], [place] [address]Dr. Garima Pulliam LYMPH # 2.2 103/ul Normal 1.2-3.8 [facility] Comment on above: Performed By: #### C BC ####[facility] Rxjkzfxxqn3460 [place] [id number]. Garima Pulliam Lymphocytes/100 WBC (Bld) 21.5 % Normal 20.5-60.0 [facility] Comment on above: Performed By: #### C BC ####[facility] Ozirnzqueb7636 [place] [id number]. Garima Heraclio MANUAL DIFF REQ NO Normal [facility] Comment on above: Performed By: #### C BC ####[facility] Vugikxuqfo[address] [place] [id number]. Garima Heraclio MCH (RBC) [Entitic mass] 30.4 pg Normal 25.9-34.0 [facility] Comment on above: Performed By: #### C BC ####[facility] Phxgvwvvdt5404 [place] [address]Dr. Garima Heraclio MCHC (RBC) [Mass/Vol] 34.0 g/dL Normal 29.9-35.2 [facility] Comment on above: Performed By: #### C BC ####[facility] Hdvtnmuedt8035 [place] [id number]. Garima Pulliam MCV (RBC) [Entitic vol] 89.6 fL Normal 80.0-94.0 [facility] Comment on above: Performed By: #### C BC ####[facility] Dknxtlilfp6745 [place] [id number]. Garima Pulliam MONO # 0.8 103/ul Normal 0.3-0.8 [facility] Comment on above: Performed By: #### C BC ####[facility] Mxeparwunn0412 [place] [id number]. Chapisrenu Pulliam Monocytes/100 WBC (Bld) 7.7 % Normal 1.7-12.0 [facility] Comment on above: Performed By: #### C BC ####[facility] Ouqytqnhab[address] [place], [place] [address]Dr. Garima Pulliam NEUT # 7.0 103/ul Critically high 1.4-6.5 [facility] Comment on above: Performed By: #### C BC ####[facility] Bfztgztpnl7479 [place] [id number]. Garima Pulliam Neutrophils/100 WBC (Bld) 68.2 % Normal 43.0-75.0 [facility] Comment on above: Performed By: #### C BC ####[facility] Jruowxxxns7446 [place] [id number]. Chapisrenu Pulliam Platelet mean volume (Bld) [Entitic vol] 8.9 fL Critically low 9.5-13.5 [facility] Comment on above: Performed By: #### C BC ####[facility] Bmbacazobn48[address] [place] [address]Dr. Garima Pulliam PLT 222 103/ul Normal 150-450 [facility] Comment on above: Performed By: #### C BC ####[facility] Snyrapyrmp5245 [place] [address]Dr. Garima Pulliam RBC 4.73 106/ul Normal 4.70-6.10 [facility] Comment on above: Performed By: #### C BC ####[facility] Shxuzolpsh77[address] [place] [address]Dr. Garima Pulliam WBC 10.3 103/ul Normal 4.0-11.0 [facility] Comment on above: Performed By: #### C BC ####[facility] Hkeblgyflh4335 [place] [address]Dr. Garima Pulliam PROF 14(COMP METB)on 023 Albumin [Mass/Vol] 3.7 g/dL Normal 3.4-5.0 [facility] Comment on above: Performed By: #### C MP, HSTROPN, BNP ####[facility] Dqcrwufczw1434 [place] [address]Dr. Chapisrenu Pulliam Albumin/Globulin [Mass ratio] 1.5 {ratio} Normal [facility] Comment on above: Performed By: #### C MP, HSTROPN, BNP ####[facility] Jduwntegrw8230 [place] [address]Dr. Garima Pulliam ALP [Catalytic activity/Vol] 79 U/L Normal 46-116 [facility] Comment on above: Performed By: #### C MP, HSTROPN, BNP ####[facility] Scphugesyj0641 [place] [address]Dr. Garima Pulliam ALT [Catalytic activity/Vol] 32 U/L Normal 16-63 [facility] Comment on above: Performed By: #### C MP, HSTROPN, BNP ####[facility] Cvunmtzwlc0998 [place] [address]Dr. Gariam Pulliam Anion gap [Moles/Vol] 9.5 mmol/L Normal [facility] Comment on above: Performed By: #### C MP, HSTROPN, BNP ####[facility] Nitpxxpybg[address] [place], [place] [address]Dr. Garima Pulliam AST [Catalytic activity/Vol] 25 U/L Normal 15-37 [facility] Comment on above: Performed By: #### C MP, HSTROPN, BNP ####[facility] Wwdwsawhhl[address] [place], [place] [address]Dr. Chapislan Pulliam Bilirubin [Mass/Vol] 0.4 mg/dL Normal 0.2-1.0 [facility] Comment on above: Performed By: #### C MP, HSTROPN, BNP ####[facility] Sbdxindcpw399[address] [place], [place] [address]Dr. Garima Pulliam Calcium [Mass/Vol] 8.9 mg/dL Normal 8.5-10.1 [facility] Comment on above: Performed By: #### C MP, HSTROPN, BNP ####[facility] Emtjwlyyjy[address] [place], [place] [address]Dr. Chapislan Pulliam Chloride [Moles/Vol] 103 mmol/L Normal 98-107 [facility] Comment on above: Performed By: #### C MP, HSTROPN, BNP ####[facility] Hiqzneiryk033[address] [place], [place] [address]Dr. Yilan Pulliam CO2 [Moles/Vol] 28.6 mmol/L Normal 21.0-32.0 [facility] Comment on above: Performed By: #### C MP, HSTROPN, BNP ####[facility] Omgfsrnkkk300[address] [place] [address]Dr. Garima Pulliam Creatinine [Mass/Vol] 0.72 mg/dL Normal 0.70-1.30 [facility] Comment on above: Performed By: #### C MP, HSTROPN, BNP ####[facility] Wromojomir[address] [place] [address]Dr. Garima Pulliam EGFR-AF SOUTH AFRICAN >60 Normal >=60 [facility] Comment on above: Performed By: #### C MP, HSTROPN, BNP ####[facility] Qcrrlwfbmy5540 [place] [address]Dr. Garima Pulliam EGFR-NON AF [place] AFR[place] >60 Normal >=60 [facility] Comment on above: Performed By: #### C MP, HSTROPN, BNP ####[facility] Wrgptcijvo8631 [place] [address]Dr. Garima Pulliam Globulin (S) [Mass/Vol] 2.5 g/dL Normal [facility] Comment on above: Performed By: #### C MP, HSTROPN, BNP ####[facility] Fagylvlyzp[address] [place], [place] [address]Dr. Garima Pulliam Glucose [Mass/Vol] 114 mg/dL Critically high 74-106 [facility] Comment on above: Performed By: #### C MP, HSTROPN, BNP ####[facility] Xfcfmmqqay[address] [place], [place] [address]Dr. Garima Pulliam Potassium [Moles/Vol] 4.1 mmol/L Normal 3.5-5.1 [facility] Comment on above: Performed By: #### C MP, HSTROPN, BNP ####[facility] Ywkriaqopm[address] [place], [place] [address]Dr. Garima Pulliam Protein [Mass/Vol] 6.2 g/dL Critically low 6.4-8.2 Th [facility] Comment on above: Performed By: #### C MP, HSTROPN, BNP ####[facility] Mmrhofffyb034[address] [place], [place] [address]Dr. Yilan Pulliam Sodium [Moles/Vol] 137 mmol/L Normal 136-145 [facility] Comment on above: Performed By: #### C MP, HSTROPN, BNP ####[facility] Vnlwrgxkex8970 [place] [address]Dr. Garima Pulliam Urea nitrogen [Mass/Vol] 13.0 mg/dL Normal 7.0-18.0 [facility] Comment on above: Performed By: #### C MP, HSTROPN, BNP ####[facility] Shruwtafti15[address] [place] [address]Dr. Garima Pulliam Urea nitrogen/Creatinine [Mass ratio] 18.1 mg/mg Normal [facility] Comment on above: Performed By: #### C MP, HSTROPN, BNP ####[facility] Rnxxovmind419[address] [place], [place] [address]Dr. Garima Pulliam TROPONIN, HIGH SENSITIVITYon 11-27-2022 HSTROP 11.8 pg/mL Normal 4.0-76.1 [facility] Comment on above: Result Comment: CUT- OFF POINTS HAVE BEEN ESTABLISHED BASED ON THE FOURTH UNIVERSAL DEFINITIONS OF MYOCARDIALINFARCTION. THE UPPER REFERENCE LIMIT (URL) OF TROPONIN, DEFINED THE 99TH PERCENTILE OFcTnI DISTRIBUTION IN A REFERENCE POPULATION, HAS BEEN CONFIRMED THE DECISION THRESHOLDFOR [place] DIAGNOSIS. Performed By: #### C MP, HSTROPN, BNP ####[facility] Zsbpksewkq[address] [place], [place] [address]Dr. Garima Pulliam XR CHEST 1 Von 11-27-2022 XR CHEST 1 V Normal [facility] BNPon 11-20-2022 Natriuretic peptide B (Bld) [Mass/Vol] 73.0 pg/mL Normal <=900.0 [facility] Comment on above: Performed By: #### B MP, HSTROPN, BNP ####[facility] Iwzjgkmhqn[address] [place], [place] [address]Dr. Garima Pulliam CBC AUTO DIFFon 11-20-2022 BASO # 0.0 103/ul Normal 0.0-0.1 [facility] Comment on above: Performed By: #### C BC ####[facility] Petyeqfxvz8349 [place] [id number]. Garima Pulliam Basophils/100 WBC (Bld) 0.3 % Normal 0.2-2.0 [facility] Comment on above: Performed By: #### C BC ####[facility] Bkfaqjjkxw7094 [place] [id number]. Garima Pulliam EO # 0.2 103/ul Normal 0.0-0.7 [facility] Comment on above: Performed By: #### C BC ####[facility] Rbforsewyz6998 [place] [address]Dr. Garima Pulliam Eosinophils/100 WBC (Bld) 2.1 % Normal 0.9-7.0 [facility] Comment on above: Performed By: #### C BC ####[facility] Setunqcvnv27[address] [place], [place] [address]Dr. Garima Pulliam Erythrocyte distribution width (RBC) [Ratio] 13.2 % Normal 11.0-15.0 [facility] Comment on above: Performed By: #### C BC ####[facility] Khdtqzelyw[address] [place], [place] [address]Dr. Garima Pulliam Hematocrit (Bld) [Volume fraction] 43.4 % Normal 42.0-54.0 [facility] Comment on above: Performed By: #### C BC ####[facility] [address] [place], [place] [address]Dr. Garima Pulliam Hemoglobin (Bld) [Mass/Vol] 14.6 g/dL Normal 14.0-18.0 [facility] Comment on above: Performed By: #### C BC ####[facility] Aqofabrejn3976 [place] [id number]. Garima Pulliam IG # 0.02 10e3/ul Normal 0.00-0.03 [facility] Comment on above: Performed By: #### C BC ####[facility] Uypmzhbsdh6[address] [place] [address]Dr. Garima Pulliam IG % 0.2 % Normal 0.0-0.5 [facility] Comment on above: Performed By: #### C BC ####[facility] Xawmchnypa7069 [place] [id number]. Garima Heraclio LYMPH # 2.1 103/ul Normal 1.2-3.8 [facility] Comment on above: Performed By: #### C BC ####[facility] Grmxrjqfhs9698 [place] [id number]. Garima Heraclio Lymphocytes/100 WBC (Bld) 19.2 % Critically low 20.5-60.0 [facility] Comment on above: Performed By: #### C BC ####[facility] Tmowkmpnrp6147 [place] [id number]. Chapisrenu Pulliam MANUAL DIFF REQ NO Normal [facility] Comment on above: Performed By: #### C BC ####[facility] Hesyhlvmdq1118 [place] [id number]. Garima Heraclio MCH (RBC) [Entitic mass] 30.4 pg Normal 25.9-34.0 [facility] Comment on above: Performed By: #### C BC ####[facility] Cqzifhkjsy9274 [place] [address]Dr. Garima Pulliam MCHC (RBC) [Mass/Vol] 33.6 g/dL Normal 29.9-35.2 [facility] Comment on above: Performed By: #### C BC ####[facility] Soucuhzixg5047 [place] [id number]. Garima Heraclio MCV (RBC) [Entitic vol] 90.4 fL Normal 80.0-94.0 [facility] Comment on above: Performed By: #### C BC ####[facility] Dodybiyvsz1278 [place] [id number]. Garima Heraclio MONO # 0.6 103/ul Normal 0.3-0.8 [facility] Comment on above: Performed By: #### C BC ####[facility] Bbxjghxqyu4510 [place] [address]Dr. Garima Heraclio Monocytes/100 WBC (Bld) 5.8 % Normal 1.7-12.0 [facility] Comment on above: Performed By: #### C BC ####[facility] Htjfgqukkk2400 [place], [place] [address]Tj. Garima Pulliam NEUT # 7.8 103/ul Critically high 1.4-6.5 [facility] Comment on above: Performed By: #### C BC ####[facility] Kpnckypyzg7735 [place] [id number]. Garima Pulliam Neutrophils/100 WBC (Bld) 72.4 % Normal 43.0-75.0 [facility] Comment on above: Performed By: #### C BC ####[facility] Gvokqykeon8248 [place] [id number]. Garima Pulliam Platelet mean volume (Bld) [Entitic vol] 8.7 fL Critically low 9.5-13.5 [facility] Comment on above: Performed By: #### C BC ####[facility] Qlnlbvhcla4840 [place] [id number]. Garima Pulliam PLT 184 103/ul Normal 150-450 [facility] Comment on above: Performed By: #### C BC ####[facility] Biuareliug6454 [place], [place] [address]Ah. Garima Pulliam RBC 4.80 106/ul Normal 4.70-6.10 [facility] Comment on above: Performed By: #### C BC ####[facility] Daqnicgsaz0128 [place] [id number]. Garima Pulliam WBC 10.8 103/ul Normal 4.0-11.0 [facility] Comment on above: Performed By: #### C BC ####[facility] Jnyxeqpkha2676 [place] [id number]. Garima Pulliam [facility]on [facility]-24 SARS-CoV-2 (COVID-19) RNA MARIE+probe Ql (Unsp spec) Not detected Normal NOT DETECTED [facility] Comment on above: Result Comment: [...] for this test is supported by the Weatherization Coordinator of Health and Human Service's declaration that [...] used). Performed By: #### C VDTBH ####[facility] Eorbmsmijq[address] [place], [place] [address]Dr. Garima Pulliam INFLUENZA A AND B AGon 11-20 IN[facility]UABRAZO [facility] SEE BELOW Normal [facility] Comment on above: Result Comment: Nega tive for Flu A protein angiten. Infection due to Flu A cannot be ruled out. Flu A angiten in the sample may be below the detection limit of the test. Performed By: #### I NFLUAB ####[facility] Zrgtsuvrjs[address] [place], [place] [address]Dr. Garima Pulliam INFLUBNEGH SEE BELOW Normal [facility] Comment on above: Result Comment: Nega tive for Flu B protein antigen. Infection due to Flu B cannot be ruled out. Flu B antigen in the sample may be below the detection limit of the test. Performed By: #### I NFLUAB ####[facility] Baplizhlsx[address] [place], [place] [address]Dr. Garima Pulliam INFLUENZA A AG Negative Normal NEGATIVE SEE COMMENT [facility] Comment on above: Performed By: #### I NFLUAB ####[facility] Pvuufikzde[address] [place], [place] [address]Dr. Garima [facility] INFLUENZA B AG Negative Normal NEGATIVE SEE COMMENT [facility] Comment on above: Performed By: #### I NFLUAB ####[facility] Wzfwkixdpp[address] [place], [place] [address]Dr. Garima Pulliam PROF CHEM 8 (BAS METB)on Anion gap [Moles/Vol] 8.2 mmol/L Normal [facility] Comment on above: Performed By: #### B MP, HSTROPN, BNP ####[facility] [address] [place] [address]Dr. Garima Pulliam Calcium [Mass/Vol] 8.7 mg/dL Normal 8.5-10.1 [facility] Comment on above: Performed By: #### B MP, HSTROPN, BNP ####[facility] Vdfmwqmega[address] [place] [address]Dr. Garima Pulliam Chloride [Moles/Vol] 103 mmol/L Normal 98-107 [facility] Comment on above: Performed By: #### B MP, HSTROPN, BNP ####[facility] Zrgljyrmzn[address] [place], [place] [address]Dr. Garima Pulliam CO2 [Moles/Vol] 29.4 mmol/L Normal 21.0-32.0 [facility] Comment on above: Performed By: #### B MP, HSTROPN, BNP ####[facility] Wclupnpmaf[address] [place], [place] [address]Dr. Garima Pulliam Creatinine [Mass/Vol] 0.69 mg/dL Critically low 0.70-1.30 [facility] Comment on above: Performed By: #### B MP, HSTROPN, BNP ####[facility] [address]tjroriynf[address] [place] [address]Dr. Garima Pulliam EGFR-AF SOUTH AFRICAN >60 Normal >=60 [facility] Comment on above: Performed By: #### B MP, HSTROPN, BNP ####[facility] Kbtfriypwg[address] [place], [place] [address]Dr. Garima Pulliam EGFR-NON AF SOUTH AFRICAN >60 Normal >=60 [facility] Comment on above: Performed By: #### B MP, HSTROPN, BNP ####[facility] [address]jgeczaxux[address] [place] [address]Dr. Garima Pulliam Glucose [Mass/Vol] 209 mg/dL Critically high 74-106 [facility] Comment on above: Performed By: #### B MP, HSTROPN, BNP ####[facility] Gcogligqse[address] [place] [address]Dr. Garima Pulliam Potassium [Moles/Vol] 3.6 mmol/L Normal 3.5-5.1 [facility] Comment on above: Performed By: #### B MP, HSTROPN, BNP ####[facility] Klmogezlfn[address] [place] [address]Dr. Garima Pulliam Sodium [Moles/Vol] 137 mmol/L Normal 136-145 [facility] Comment on above: Performed By: #### B MP, HSTROPN, BNP ####[facility] Edqwhrrosj24[address] [place] [address]Dr. Garima Pulliam Urea nitrogen [Mass/Vol] 11.0 mg/dL Normal 7.0-18.0 [facility] Comment on above: Performed By: #### B MP, HSTROPN, BNP ####[facility] Qxjbqnqnam[address] [place] [address]Dr. Garima Pulliam Urea nitrogen/Creatinine [Mass ratio] 15.9 mg/mg Normal [facility] Comment on above: Performed By: #### B MP, HSTROPN, BNP ####[facility] Imlkqkrnqg[address] [place] [address]Dr. Garima Pulliam TROPONIN, HIGH SENSITIVITYon 11-20-2022 HSTROP 8.7 pg/mL Normal 4.0-76.1 [facility] Comment on above: Result Comment: CUT- OFF POINTS HAVE BEEN ESTABLISHED BASED ON THE FOURTH UNIVERSAL DEFINITIONS OF MYOCARDIALINFARCTION. THE UPPER REFERENCE LIMIT (URL) OF TROPONIN, DEFINED THE 99TH PERCENTILE OFcTnI DISTRIBUTION IN A REFERENCE POPULATION, HAS BEEN CONFIRMED THE DECISION THRESHOLDFOR [place] DIAGNOSIS. Performed By: #### B MP, HSTROPN, BNP ####[facility] [address]eb[address]lsyftw[address] [place] [address]Dr. Garima Pulliam XR CHEST 1 Von 11-20-2022 XR CHEST 1 V Normal [facility] XR CHEST 1 Von 10-02-2022 XR CHEST 1 V Normal [facility] BNPon 09-29-2022 Natriuretic peptide B (Bld) [Mass/Vol] 107.0 pg/mL Normal <=900.0 [facility] Comment on above: Performed By: #### C MP, BNP, CMADM ####[facility] Xbytnaazpn4[address] [place] [address]Dr. Garima Pulliam CARDIAC NASH ADMITon 022 CK [Catalytic activity/Vol] 190 U/L Normal 39-308 [facility] Comment on above: Performed By: #### C MP, BNP, CMADM ####[facility] Ilbyjzvnqt26[address] [place] [address]Dr. Garima Heraclio CK.MB [Mass/Vol] 11.11 ng/mL Critically high <=3.60 [facility] Comment on above: Performed By: #### C MP, BNP, CMADM ####[facility] Uvsrwfmdxb15[address] [place] [address]Dr. Garima Pulliam HSTROP 11.8 pg/mL Normal 4.0-76.1 [facility] Comment on above: Result Comment: CUT- OFF POINTS HAVE BEEN ESTABLISHED BASED ON THE FOURTH UNIVERSAL DEFINITIONS OF MYOCARDIALINFARCTION. THE UPPER REFERENCE LIMIT (URL) OF TROPONIN, DEFINED THE 99TH PERCENTILE OFcTnI DISTRIBUTION IN A REFERENCE POPULATION, HAS BEEN CONFIRMED THE DECISION THRESHOLDFOR [place] DIAGNOSIS. Performed By: #### C MP, BNP, CMADM ####[facility] Dekbnwdltn[address] [place] [address]Dr. Garima Pulliam DORIS 133 ng/mL Critically high 16-96 [facility] Comment on above: Performed By: #### C MP, BNP, CMADM ####[facility] Quffyliavj[address] [place] [address]Dr. Garima Heraclio CBC AUTO DIFFon 09-29-2022 BASO # 0.0 103/ul Normal 0.0-0.1 [facility] Comment on above: Performed By: #### C BC ####[facility] Y[address]uwixhza[address] [place] [address]Dr. Garima Heraclio Basophils/100 WBC (Bld) 0.2 % Normal 0.2-2.0 [facility] Comment on above: Performed By: #### C BC ####[facility] Fmjggjzlav65[address] [place] [id number]. Garima Pulliam EO # 0.1 103/ul Normal 0.0-0.7 [facility] Comment on above: Performed By: #### C BC ####[facility] Cnofncrwge0161 [place] [id number]. Garima Pulliam Eosinophils/100 WBC (Bld) 1.4 % Normal 0.9-7.0 [facility] Comment on above: Performed By: #### C BC ####[facility] Yetwikuwgq[address] [place], [place] [address]Dr. Garima Pulliam Erythrocyte distribution width (RBC) [Ratio] 13.7 % Normal 11.0-15.0 [facility] Comment on above: Performed By: #### C BC ####[facility] Svrdsiiopv6[address] [place], [place] [address]Dr. Garima Pulliam Hematocrit (Bld) [Volume fraction] 45.4 % Normal 42.0-54.0 [facility] Comment on above: Performed By: #### C BC ####[facility] Rvlikadtmr[address] [place], [place] [address]Dr. Garima Pulliam Hemoglobin (Bld) [Mass/Vol] 14.8 g/dL Normal 14.0-18.0 [facility] Comment on above: Performed By: #### C BC ####[facility] Zezuptxzfo017[address] [place], [place] [address]Dr. Garima Pulliam IG # 0.04 10e3/ul Critically high 0.00-0.03 [facility] Comment on above: Performed By: #### C BC ####[facility] Akdvpckems[address] [place], [place] [address]Dr. Garima Pulliam IG % 0.5 % Normal 0.0-0.5 [facility] Comment on above: Performed By: #### C BC ####[facility] Nulbbscqdu[address] [place], [place] [address]Dr. Garima Pulliam LYMPH # 1.1 103/ul Critically low 1.2-3.8 [facility] Comment on above: Performed By: #### C BC ####[facility] Lofsuelilu[address] [place] [id number]. Garima Pulliam Lymphocytes/100 WBC (Bld) 12.7 % Critically low 20.5-60.0 [facility] Comment on above: Performed By: #### C BC ####[facility] Rjdcxbgtnl2785 [place] [id number]. Chapisrenu Pulliam MANUAL DIFF REQ NO Normal [facility] Comment on above: Performed By: #### C BC ####[facility] Qrbvolmysn[address] [place], [place] [address]Dr. Garima Heraclio MCH (RBC) [Entitic mass] 30.0 pg Normal 25.9-34.0 [facility] Comment on above: Performed By: #### C BC ####[facility] Hwhcillqqw95[address] [place], [place] [address]Dr. Garima Heraclio MCHC (RBC) [Mass/Vol] 32.6 g/dL Normal 29.9-35.2 [facility] Comment on above: Performed By: #### C BC ####[facility] M[address]bdylsqg[address] [place], [place] [address]Dr. Garima Heraclio MCV (RBC) [Entitic vol] 91.9 fL Normal 80.0-94.0 [facility] Comment on above: Performed By: #### C BC ####[facility] Folphfccsq[address] [place], [place] [address]Dr. Garima Pulliam MONO # 0.4 103/ul Normal 0.3-0.8 [facility] Comment on above: Performed By: #### C BC ####[facility] Wqonuryuaz[address] [place], [place] [address]Dr. Chapisrenu Pulliam Monocytes/100 WBC (Bld) 4.8 % Normal 1.7-12.0 [facility] Comment on above: Performed By: #### C BC ####[facility] [address]yzihm[address] [place], [place] [address]Dr. Garima Pulliam NEUT # 7.1 103/ul Critically high 1.4-6.5 [facility] Comment on above: Performed By: #### C BC ####[facility] Dedawblyjm0906 [place], [place] [address]Nl. Garima Pulliam Neutrophils/100 WBC (Bld) 80.4 % Critically high 43.0-75.0 [facility] Comment on above: Performed By: #### C BC ####[facility] Lsijywsjis[address] [place] [id number]. Garima Pulliam Platelet mean volume (Bld) [Entitic vol] 9.1 fL Critically low 9.5-13.5 [facility] Comment on above: Performed By: #### C BC ####[facility] Tquhimwpfk1812 [place] [id number]. Garima Pulliam PLT 200 103/ul Normal 150-450 [facility] Comment on above: Performed By: #### C BC ####[facility] Xlmvofxxaq6467 [place] [id number]. Garima Pulliam RBC 4.94 106/ul Normal 4.70-6.10 [facility] Comment on above: Performed By: #### C BC ####[facility] Pqlgqwbcuj8957 [place] [address]Dr. Garima Pulliam WBC 8.9 103/ul Normal 4.0-11.0 [facility] Comment on above: Performed By: #### C BC ####[facility] Ynxodfcgjw5672 [place] [id number]. Garima Pulliam Covid-19 PCR (CVDTB)on SARS-CoV-2 (COVID-19) RNA MARIE+probe Ql (Unsp spec) Not detected Normal NOT DETECTED [facility] Comment on above: Result Comment: [...] for this test is supported by the Weatherization Coordinator of Health and Human Service's declaration that [...] used). Performed By: #### C VDTBH ####[facility] [address]zawbldt4[address] [place] [address]Dr. Garima Pulliam LACTATE/LACTIC ACIDon 2021 Lactate [Moles/Vol] 1.7 mmol/L Normal 0.4-1.9 [facility] Comment on above: Performed By: #### L ACT ####[facility] Sdqvtmpyzu[address] [place], [place] [address]Dr. Garima Pulliam PROF 14(COMP METB)on 022 Albumin [Mass/Vol] 3.8 g/dL Normal 3.4-5.0 [facility] Comment on above: Performed By: #### C MP, BNP, CMADM ####[facility] Bvvnzueakn[address] [place], [place] [address]Dr. Garima Pulliam Albumin/Globulin [Mass ratio] 1.5 {ratio} Normal [facility] Comment on above: Performed By: #### C MP, BNP, CMADM ####[facility] Skopeusrcu[address] [place] [address]Dr. Garima Pulliam ALP [Catalytic activity/Vol] 62 U/L Normal 46-116 [facility] Comment on above: Performed By: #### C MP, BNP, CMADM ####[facility] Ozzgijajqc39[address] [place] [address]Dr. Garima Pulliam ALT [Catalytic activity/Vol] 37 U/L Normal 16-63 [facility] Comment on above: Performed By: #### C MP, BNP, CMADM ####[facility] Ultajjqonu1799 [place] [address]Dr. Garima Pulliam Anion gap [Moles/Vol] 8.0 mmol/L Normal [facility] Comment on above: Performed By: #### C MP, BNP, CMADM ####[facility] Zaeltstntg[address]70 [place] [address]Dr. Garima Pulliam AST [Catalytic activity/Vol] 20 U/L Normal 15-37 [facility] Comment on above: Performed By: #### C MP, BNP, CMADM ####[facility] Lbkbqzchdp4993 [place] [address]Dr. Garima Pulliam Bilirubin [Mass/Vol] 0.6 mg/dL Normal 0.2-1.0 [facility] Comment on above: Performed By: #### C MP, BNP, CMADM ####[facility] Slihfzcgdf7247 [place] [address]Dr. Garima Pulliam Calcium [Mass/Vol] 9.1 mg/dL Normal 8.5-10.1 [facility] Comment on above: Performed By: #### C MP, BNP, CMADM ####[facility] Weevfutqbr[address] [place], [place] [address]Dr. Garima Pulliam Chloride [Moles/Vol] 103 mmol/L Normal 98-107 [facility] Comment on above: Performed By: #### C MP, BNP, CMADM ####[facility] Yfjzpwxven[address] [place], [place] [address]Dr. Garima Pulliam CO2 [Moles/Vol] 31.8 mmol/L Normal 21.0-32.0 [facility] Comment on above: Performed By: #### C MP, BNP, CMADM ####[facility] Eoagpsmqmj[address] [place], [place] [address]Dr. Garima Pulliam Creatinine [Mass/Vol] 0.63 mg/dL Critically low 0.70-1.30 [facility] Comment on above: Performed By: #### C MP, BNP, CMADM ####[facility] Oburhkikfm[address] [place], [place] [address]Dr. Garima Pulliam EGFR-AF SOU[place] AFRICAN >60 Normal >=60 [facility] Comment on above: Performed By: #### C MP, BNP, CMADM ####[facility] Uhxgpdwnaz[address] [place], [place] [address]Dr. Garima Pulliam EGFR-NON AF S[place] AFRICAN >60 Normal >=60 [facility] Comment on above: Performed By: #### C MP, BNP, CMADM ####[facility] Tcejeceohk[address] [place] [address]Dr. Garima Pulliam Globulin (S) [Mass/Vol] 2.6 g/dL Normal [facility] Comment on above: Performed By: #### C MP, BNP, CMADM ####[facility] Xylnnmxbzt0901 [place] [address]Dr. Garima Pulliam Glucose [Mass/Vol] 103 mg/dL Normal 74-106 [facility] Comment on above: Performed By: #### C MP, BNP, CMADM ####[facility] Ejvlgkveet9805 [place] [address]Dr. Garima Pulliam Potassium [Moles/Vol] 3.8 mmol/L Normal 3.5-5.1 [facility] Comment on above: Performed By: #### C MP, BNP, CMADM ####[facility] Qtgkaiuihs7946 [place] [address]Dr. Garima Pulliam Protein [Mass/Vol] 6.4 g/dL Normal 6.4-8.2 [facility] Comment on above: Performed By: #### C MP, BNP, CMADM ####[facility] Vlkldfozyi3863 [place] [address]Dr. Garima Pulliam Sodium [Moles/Vol] 139 mmol/L Normal 136-145 [facility] Comment on above: Performed By: #### C MP, BNP, CMADM ####[facility] Xxvqkfxzjv7626 [place] [address]Dr. Garima Pulliam Urea nitrogen [Mass/Vol] 7.0 mg/dL Normal 7.0-18.0 [facility] Comment on above: Performed By: #### C MP, BNP, CMADM ####[facility] Sunkagzpgb70[address] [place] [address]Dr. Garima Pulliam Urea nitrogen/Creatinine [Mass ratio] 11.1 mg/mg Normal [facility] Comment on above: Performed By: #### C MP, BNP, CMADM ####[facility] Hwhgqlqvls5737 [place] [address]Dr. Garima Pulliam PROTIMEon 09-29-2022 INR Coag (PPP) [Relative time] 1.14 {INR} Normal [facility] Comment on above: Performed By: #### P T, PTT ####[facility] Xkfzzbryre[address] [place], [place] [address]Dr. Garima Pulliam INR GUIDELINES SEE BELOW Normal [facility] Comment on above: Result Comment: WESLEY RED INR: 2.0 - 3.0 CONDITIONS NOT LISTED BELOW 2.5 - 3.5 FOR PROSTHETIC HEART VALVE REPLACEMENT 2.5 - 3.5 RECURRENT THROMBOSIS Performed By: #### P T, PTT ####[facility] Kchiometsi[address] [place], [place] [address]Dr. Garima Pulliam PT Coag (PPP) [Time] 12.2 s Critically high 9.0-11.6 [facility] Comment on above: Performed By: #### P T, PTT ####[facility] Ghyprcgsnb[address] [place], [place] [address]Dr. Garima Pulliam PTTon 09-29-2022 aPTT Coag (Bld) [Time] 29.3 s Normal 22.3-36.2 [facility] Comment on above: Performed By: #### P T, PTT ####[facility] Dkyqvbasyi[address] [place], [place] [address]Dr. Garima Pulliam XR CHEST 1 Von 09-29-2022 XR CHEST 1 V Normal [facility] CBC AUTO DIFFon 09-26-2022 BASO # 0.0 103/ul Normal 0.0-0.1 [facility] Comment on above: Performed By: #### C BC ####[facility] Qxrtmsirbf[address] [place], [place] [address]Dr. Garima Pulliam Basophils/100 WBC (Bld) 0.2 % Normal 0.2-2.0 [facility] Comment on above: Performed By: #### C BC ####[facility] Yxrdiuvgxh[address] [place], [place] [address]Dr. Garima Pulliam EO # 0.1 103/ul Normal 0.0-0.7 [facility] Comment on above: Performed By: #### C BC ####[facility] Rwcclblajf[address] [place], [place] [address]Dr. Garima Pulliam Eosinophils/100 WBC (Bld) 1.0 % Normal 0.9-7.0 [facility] Comment on above: Performed By: #### C BC ####[facility] Sewuplzlbv50[address] [place], [place] [address]Dr. Garima Pulliam Erythrocyte distribution width (RBC) [Ratio] 13.4 % Normal 11.0-15.0 [facility] Comment on above: Performed By: #### C BC ####[facility] Akzaytnynl[address] [place], [place] [address]Dr. Garima Pulliam Hematocrit (Bld) [Volume fraction] 46.3 % Normal 42.0-54.0 [facility] Comment on above: Performed By: #### C BC ####[facility] Lrhebtkxtf[address] [place], [place] [address]Dr. Garima Pulliam Hemoglobin (Bld) [Mass/Vol] 15.3 g/dL Normal 14.0-18.0 [facility] Comment on above: Performed By: #### C BC ####[facility] Vvynyeegls[address] [place], [place] [address]Dr. Garima Pulliam IG # 0.05 10e3/ul Critically high 0.00-0.03 [facility] Comment on above: Performed By: #### C BC ####[facility] Lipznklfra[address] [place], [place] [address]Dr. Garima Pulliam IG % 0.4 % Normal 0.0-0.5 [facility] Comment on above: Performed By: #### C BC ####[facility] Fclfopxtgu[address] [place], [place] [address]Dr. Garima Pulliam LYMPH # 1.7 103/ul Normal 1.2-3.8 [facility] Comment on above: Performed By: #### C BC ####[facility] Uyzfxhluxu707[address] [place], [place] [address]Dr. Garima Pulliam Lymphocytes/100 WBC (Bld) 12.7 % Critically low 20.5-60.0 [facility] Comment on above: Performed By: #### C BC ####[facility] Wyewtglhgr76[address] [place] [address]DrAdalberto Pulliam MANUAL DIFF REQ NO Normal [facility] Comment on above: Performed By: #### C BC ####[facility] Btnxlqxyrr4130 [place] [address]Dr. Garima Pulliam MCH (RBC) [Entitic mass] 30.1 pg Normal 25.9-34.0 [facility] Comment on above: Performed By: #### C BC ####[facility] Cygjzqengc[address] [place], [place] [address]Dr. Garima Pulliam MCHC (RBC) [Mass/Vol] 33.0 g/dL Normal 29.9-35.2 [facility] Comment on above: Performed By: #### C BC ####[facility] Ljqqpzihzt[address] [place], [place] [address]DrAdalberto Pulliam MCV (RBC) [Entitic vol] 91.1 fL Normal 80.0-94.0 [facility] Comment on above: Performed By: #### C BC ####[facility] Xrdysmbzoe[address] [place], [place] [address]DrAdalberto Pulliam MONO # 0.9 103/ul Critically high 0.3-0.8 [facility] Comment on above: Performed By: #### C BC ####[facility] Frwchndkka[address] [place], [place] [address]DrAdalberto Pulliam Monocytes/100 WBC (Bld) 7.0 % Normal 1.7-12.0 [facility] Comment on above: Performed By: #### C BC ####[facility] Nthpumcqfr[address] [place], [place] [address]DrAdalberto Pulliam NEUT # 10.4 103/ul Critically high 1.4-6.5 [facility] Comment on above: Performed By: #### C BC ####[facility] Etnqhevyqg7[address] [place], [place] [address]DrAdalberto Pulliam Neutrophils/100 WBC (Bld) 78.7 % Critically high 43.0-75.0 [facility] Comment on above: Performed By: #### C BC ####[facility] Vswtwtpfuz16[address] [place] [address]Dr. Garima Pulliam Platelet mean volume (Bld) [Entitic vol] 8.9 fL Critically low 9.5-13.5 [facility] Comment on above: Performed By: #### C BC ####[facility] Vvlphopdwd6964 [place] [address]Dr. Garima Pulliam PLT 195 103/ul Normal 150-450 [facility] Comment on above: Performed By: #### C BC ####[facility] Izphyflhan[address] [place], [place] [address]Dr. Garima Pulliam RBC 5.08 106/ul Normal 4.70-6.10 [facility] Comment on above: Performed By: #### C BC ####[facility] Fzezqzynma[address] [place], [place] [address]Dr. Garima Pulliam WBC 13.2 103/ul Critically high 4.0-11.0 [facility] Comment on above: Performed By: #### C BC ####[facility] Ghpfqwvzhb311[address] [place], [place] [address]Dr. Garima Pulliam PROF 14(COMP METB)on 022 Albumin [Mass/Vol] 3.5 g/dL Normal 3.4-5.0 [facility] Comment on above: Performed By: #### C DAVID HSTROPN ####[facility] Avkldmcjgc38[address] [place] [address]Dr. Garima Pulliam Albumin/Globulin [Mass ratio] 1.2 {ratio} Normal [facility] Comment on above: Performed By: #### C RAFAT HERNANDEZTROPN ####[facility] Pfcsxwsgat5[address] [place] [address]Dr. Garima Pulliam ALP [Catalytic activity/Vol] 71 U/L Normal 46-116 [facility] Comment on above: Performed By: #### C DAVID HSTROPN ####[facility] Ohqjgjminj6640 [place] [address]Dr. Garima Pulliam ALT [Catalytic activity/Vol] 37 U/L Normal 16-63 [facility] Comment on above: Performed By: #### C DAVID, HSTROPN ####[facility] Dxlulwxssc5303 [place] [address]Dr. Garima Pulliam Anion gap [Moles/Vol] 4.8 mmol/L Normal [facility] Comment on above: Performed By: #### C DAVID, HSTROPN ####[facility] Gponxxikzu[address] [place], [place] [address]Dr. Garima Pulliam AST [Catalytic activity/Vol] 21 U/L Normal 15-37 [facility] Comment on above: Performed By: #### C DAVID, HSTROPN ####[facility] Dtsfztysxq[address] [place], [place] [address]Dr. Garima Pulliam Bilirubin [Mass/Vol] 0.3 mg/dL Normal 0.2-1.0 [facility] Comment on above: Performed By: #### C DAVID, HSTROPN ####[facility] Gqdfixjgdj364[address] [place] [address]Dr. Garima Pulliam Calcium [Mass/Vol] 8.9 mg/dL Normal 8.5-10.1 [facility] Comment on above: Performed By: #### C DAVID, HSTROPN ####[facility] Fyfxtshvsp67[address] [place] [address]Dr. Garima Pulliam Chloride [Moles/Vol] 106 mmol/L Normal 98-107 [facility] Comment on above: Performed By: #### C DAVID, HSTROPN ####[facility] Iukebbmsdd1143 [place] [address]Dr. Garima Pulliam CO2 [Moles/Vol] 29.8 mmol/L Normal 21.0-32.0 [facility] Comment on above: Performed By: #### C DAVID, HSTROPN ####[facility] Jxmqzawogv1585 [place] [address]Dr. Garima Pulliam Creatinine [Mass/Vol] 0.68 mg/dL Critically low 0.70-1.30 [facility] Comment on above: Performed By: #### C MP, HSTROPN ####[facility] Jyljuzklcm73[address] [place] [address]Dr. Garima Pulliam EGFR-AF SOUTH AFRICAN >60 Normal >=60 [facility] Comment on above: Performed By: #### C MP, HSTROPN ####[facility] Jmpsnmujha9821 [place] [address]Dr. Chapislan Pulliam EGFR-NON AF SOUTH AFR[place] >60 Normal >=60 [facility] Comment on above: Performed By: #### C MP, HSTROPN ####[facility] Wzcjejhqve4[address] [place] [address]Dr. Garima Pulliam Globulin (S) [Mass/Vol] 2.8 g/dL Normal [facility] Comment on above: Performed By: #### C MP, HSTROPN ####[facility] Pelhciligr[address] [place] [address]Dr. Garima Pulliam Glucose [Mass/Vol] 133 mg/dL Critically high 74-106 [facility] Comment on above: Performed By: #### C MP, HSTROPN ####[facility] Fymrkuuscw[address] [place] [address]Dr. Chapisrenu Pulliam Potassium [Moles/Vol] 3.6 mmol/L Normal 3.5-5.1 [facility] Comment on above: Performed By: #### C MP, HSTROPN ####[facility] Itsqzohjnn69[address] [place] [address]Dr. Chapisrenu Pulliam Protein [Mass/Vol] 6.3 g/dL Critically low 6.4-8.2 Th [facility] Comment on above: Performed By: #### C MP, HSTROPN ####[facility] Ymrdnsrqnq[address] [place], [place] [address]Dr. Chapisrenu Pulliam Sodium [Moles/Vol] 137 mmol/L Normal 136-145 [facility] Comment on above: Performed By: #### C MP, HSTROPN ####[facility] Uxzlrxzqsi[address] [place], [place] [address]Dr. Garima Pulliam Urea nitrogen [Mass/Vol] 15.0 mg/dL Normal 7.0-18.0 [facility] Comment on above: Performed By: #### C DAVID HSTROPN ####[facility] [address]ifuiuygtq[address] [place] [address]Dr. Chapisrenu Pullima Urea nitrogen/Creatinine [Mass ratio] 22.1 mg/mg Normal [facility] Comment on above: Performed By: #### C DAVID HSTROPN ####[facility] Ymmcjrgtyj[address] [place] [address]Dr. Garima Heraclio TROPONIN, HIGH SENSITIVITYon 09-26-2022 HSTROP 12.8 pg/mL Normal 4.0-76.1 [facility] Comment on above: Result Comment: CUT- OFF POINTS HAVE BEEN ESTABLISHED BASED ON THE FOURTH UNIVERSAL DEFINITIONS OF MYOCARDIALINFARCTION. THE UPPER REFERENCE LIMIT (URL) OF TROPONIN, DEFINED THE 99TH PERCENTILE OFcTnI DISTRIBUTION IN A REFERENCE POPULATION, HAS BEEN CONFIRMED THE DECISION THRESHOLDFOR [place] DIAGNOSIS. Performed By: #### C DAVID HSTROPN ####[facility] Rwjiyuhodq[address] [place] [address]Dr. Chapisrenu Pulliam XR CHEST 1 Von 09-26-2022 XR CHEST 1 V Normal [facility] XR CHEST 1 Von 09-16-2022 XR CHEST 1 V Normal [facility] CBC AUTO DIFFon 09-15-2022 BASO # 0.0 103/ul Normal 0.0-0.1 [facility] Comment on above: Performed By: #### C BC ####[facility] Tmutmwrjha[address] [place] [address]Dr. Garima Heraclio Basophils/100 WBC (Bld) 0.1 % Critically low 0.2-2.0 [facility] Comment on above: Performed By: #### C BC ####[facility] Pkfjixstnh[address] [place] [address]Dr. Garima Pulliam EO # 0.0 103/ul Normal 0.0-0.7 [facility] Comment on above: Performed By: #### C BC ####[facility] Akhstzgfkf4[address] [place] [address]Dr. Garima Pulliam Eosinophils/100 WBC (Bld) 0.1 % Critically low 0.9-7.0 [facility] Comment on above: Performed By: #### C BC ####[facility] Pcawjgstxk74[address] [place] [address]Dr. Garima Pulliam Erythrocyte distribution width (RBC) [Ratio] 14.1 % Normal 11.0-15.0 [facility] Comment on above: Performed By: #### C BC ####[facility] Cdaxqqqhwc[address] [place], [place] [address]Dr. Garima Pulliam Hematocrit (Bld) [Volume fraction] 46.1 % Normal 42.0-54.0 [facility] Comment on above: Performed By: #### C BC ####[facility] Cuqpxpmgty119[address] [place], [place] [address]Dr. Garima Pulliam Hemoglobin (Bld) [Mass/Vol] 15.0 g/dL Normal 14.0-18.0 [facility] Comment on above: Performed By: #### C BC ####[facility] Dwabpbkfcn50[address] [place], [place] [address]Dr. Garima Pulliam IG # 0.03 10e3/ul Normal 0.00-0.03 [facility] Comment on above: Performed By: #### C BC ####[facility] Hzqhbpnrqa709[address] [place], [place] [address]Dr. Garima Pulliam IG % 0.3 % Normal 0.0-0.5 [facility] Comment on above: Performed By: #### C BC ####[facility] Vhakjiroug[address] [place], [place] [address]Dr. Garima Pulliam LYMPH # 0.6 103/ul Critically low 1.2-3.8 [facility] Comment on above: Performed By: #### C BC ####[facility] Idxvezjqij[address] [place], [place] [address]Dr. Garima Pulliam Lymphocytes/100 WBC (Bld) 5.8 % Critically low 20.5-60.0 [facility] Comment on above: Performed By: #### C BC ####[facility] Wqyvunqbor[address] [place] [id number]. Garima Pulliam MANUAL DIFF REQ NO Normal The [facility] Comment on above: Performed By: #### C BC ####[facility] Crypjnwncv40[address] [place] [id number]. Garima Pulliam MCH (RBC) [Entitic mass] 30.2 pg Normal 25.9-34.0 [facility] Comment on above: Performed By: #### C BC ####[facility] Fpdpybtwgo4004 [place] [address]Dr. Garima Pulliam MCHC (RBC) [Mass/Vol] 32.5 g/dL Normal 29.9-35.2 [facility] Comment on above: Performed By: #### C BC ####[facility] Lkmkrpolwk6[address] [place] [address]Dr. Garima Pulliam MCV (RBC) [Entitic vol] 92.8 fL Normal 80.0-94.0 [facility] Comment on above: Performed By: #### C BC ####[facility] Iahbexfhju8[address] [place] [address]Dr. Garima Heraclio MONO # 0.3 103/ul Normal 0.3-0.8 [facility] Comment on above: Performed By: #### C BC ####[facility] Unzziljgzj0764 [place] [id number]. Garima Heraclio Monocytes/100 WBC (Bld) 3.2 % Normal 1.7-12.0 [facility] Comment on above: Performed By: #### C BC ####[facility] Pspewdalmv4670 [place] [id number]. Garima Pulliam NEUT # 9.8 103/ul Critically high 1.4-6.5 The [facility] Comment on above: Performed By: #### C BC ####[facility] Uqrkvujllo6975 [place] [id number]. Garima Pulliam Neutrophils/100 WBC (Bld) 90.5 % Critically high 43.0-75.0 [facility] Comment on above: Performed By: #### C BC ####[facility] Eusyaykqbj6996 [place] [id number]. Garima Pulliam Platelet mean volume (Bld) [Entitic vol] 9.4 fL Critically low 9.5-13.5 [facility] Comment on above: Performed By: #### C BC ####[facility] Fgagowbqut3756 [place] [id number]. Garima Pulliam PLT 208 103/ul Normal 150-450 [facility] Comment on above: Performed By: #### C BC ####[facility] Svjmipqzem7835 [place] [address]Dr. Garima Pulliam RBC 4.97 106/ul Normal 4.70-6.10 [facility] Comment on above: Performed By: #### C BC ####[facility] Ijympnpkue7087 [place] [address]Dr. Garima Pulliam WBC 10.8 103/ul Normal 4.0-11.0 [facility] Comment on above: Performed By: #### C BC ####[facility] Vdctdpeeyz9854 [place] [address]Dr. Garima Pulliam PROF 14(COMP METB)on 022 Albumin [Mass/Vol] 4.0 g/dL Normal 3.4-5.0 [facility] Comment on above: Performed By: #### C MP ####[facility] Flnzqbznni2616 [place] [address]Dr. Garima Pulliam Albumin/Globulin [Mass ratio] 1.5 {ratio} Normal [facility] Comment on above: Performed By: #### C MP ####[facility] Tiabyzqnsn15[address] [place] [address]Dr. Garima Pulliam ALP [Catalytic activity/Vol] 73 U/L Normal 46-116 [facility] Comment on above: Performed By: #### C MP ####[facility] Yofsqitkrd9978 [place] [address]Dr. Garima Pulliam ALT [Catalytic activity/Vol] 42 U/L Normal 16-63 [facility] Comment on above: Performed By: #### C MP ####[facility] Zcewmexsge9619 [place] [address]Dr. Garima Pulliam Anion gap [Moles/Vol] 9.1 mmol/L Normal [facility] Comment on above: Performed By: #### C MP ####[facility] Kdialqqknr[address] [place], [place] [address]Dr. Garima Pulliam AST [Catalytic activity/Vol] 28 U/L Normal 15-37 [facility] Comment on above: Performed By: #### C MP ####[facility] Drcltnwhog[address] [place], [place] [address]Dr. Garima Pulliam Bilirubin [Mass/Vol] 0.6 mg/dL Normal 0.2-1.0 [facility] Comment on above: Performed By: #### C MP ####[facility] Kxtyhkgdud144[address] [place], [place] [address]Dr. Garima Pulliam Calcium [Mass/Vol] 8.6 mg/dL Normal 8.5-10.1 The [facility] Comment on above: Performed By: #### C MP ####[facility] Rpickhweux[address] [place], [place] [address]Dr. Garima Pulliam Chloride [Moles/Vol] 105 mmol/L Normal 98-107 [facility] Comment on above: Performed By: #### C MP ####[facility] Aqsztngmhe858[address] [place], [place] [address]Dr. Garima Pulliam CO2 [Moles/Vol] 28.5 mmol/L Normal 21.0-32.0 The [facility] Comment on above: Performed By: #### C MP ####[facility] Poknxtxwvz14[address] [place], [place] [address]Dr. Garima Heraclio Creatinine [Mass/Vol] 0.78 mg/dL Normal 0.70-1.30 [facility] Comment on above: Performed By: #### C MP ####[facility] Hwwjoktebs[address] [place], [place] [address]Dr. Chapisrenu Heraclio EGFR-AF SOUTH AFR[place] >60 Normal >=60 [facility] Comment on above: Performed By: #### C MP ####[facility] Svjvwjmosb26[address] [place], [place] [address]Dr. Garima Pulliam EGFR-NON AF [place] >60 Normal >=60 [facility] Comment on above: Performed By: #### C MP ####[facility] Vhicvvthls37[address] [place] [address]Dr. Garima Pulliam Globulin (S) [Mass/Vol] 2.7 g/dL Normal [facility] Comment on above: Performed By: #### C MP ####[facility] Oqsipndgkf1347 [place] [address]Dr. Garima Pulliam Glucose [Mass/Vol] 220 mg/dL Critically high 74-106 T [facility] Comment on above: Performed By: #### C MP ####[facility] Ddndyccsxp8618 [place] [address]Dr. Garima Pulliam Potassium [Moles/Vol] 3.6 mmol/L Normal 3.5-5.1 [facility] Comment on above: Performed By: #### C MP ####[facility] Qzkplhrzdq19[address] [place], [place] [address]Dr. Garima Pulliam Protein [Mass/Vol] 6.7 g/dL Normal 6.4-8.2 [facility] Comment on above: Performed By: #### C MP ####[facility] Syyxeinxde69[address] [place], [place] [address]Dr. Garima Pulliam Sodium [Moles/Vol] 139 mmol/L Normal 136-145 [facility] Comment on above: Performed By: #### C MP ####[facility] Aspsinehpu250[address] [place], [place] [address]Dr. Garima Pulliam Urea nitrogen [Mass/Vol] 11.0 mg/dL Normal 7.0-18.0 [facility] Comment on above: Performed By: #### C MP ####[facility] Pucigihvwr217[address] [place], [place] [address]Dr. Garima Pulliam Urea nitrogen/Creatinine [Mass ratio] 14.1 mg/mg Normal [facility] Comment on above: Performed By: #### C MP ####[facility] Syvdatbixo[address] [place], [place] [address]Dr. Garima Pulliam CARDIAC NASH 3-6on 2 CK [Catalytic activity/Vol] 240 U/L Normal 39-308 [facility] Comment on above: Performed By: #### C MREP ####[facility] Tklwfuyxqi[address] [place] [address]Dr. Garima Pulliam CK.MB [Mass/Vol] 10.38 ng/mL Critically high <=3.60 Th [facility] Comment on above: Performed By: #### C MREP ####[facility] Nvtgmttmpn0987 [place] [address]Dr. Garima Pulliam HSTROP 18.5 pg/mL Normal 4.0-76.1 [facility] Comment on above: Result Comment: CUT- OFF POINTS HAVE BEEN ESTABLISHED BASED ON THE FOURTH UNIVERSAL DEFINITIONS OF MYOCARDIALINFARCTION. THE UPPER REFERENCE LIMIT (URL) OF TROPONIN, DEFINED THE 99TH PERCENTILE OFcTnI DISTRIBUTION IN A REFERENCE POPULATION, HAS BEEN CONFIRMED THE DECISION THRESHOLDFOR [place] DIAGNOSIS. Performed By: #### C MREP ####[facility] Ipxgwvveub3454 [place] [address]Dr. Garima Pulliam CK [Catalytic activity/Vol] 257 U/L Normal 39-308 [facility] Comment on above: Performed By: #### C MREP ####[facility] Chesrgumsw[address] [place], [place] [address]Dr. Garima Pulliam CK.MB [Mass/Vol] 9.89 ng/mL Critically high <=3.60 [facility] Comment on above: Performed By: #### C MREP ####[facility] Shuxrqlavv[address] [place], [place] [address]Dr. Garima Pulliam HSTROP 16.9 pg/mL Normal 4.0-76.1 [facility] Comment on above: Result Comment: CUT- OFF POINTS HAVE BEEN ESTABLISHED BASED ON THE FOURTH UNIVERSAL DEFINITIONS OF MYOCARDIALINFARCTION. THE UPPER REFERENCE LIMIT (URL) OF TROPONIN, DEFINED THE 99TH PERCENTILE OFcTnI DISTRIBUTION IN A REFERENCE POPULATION, HAS BEEN CONFIRMED THE DECISION THRESHOLDFOR [place] DIAGNOSIS. Performed By: #### C MREP ####[facility] Odrycqmykp5564 [place] [address]Dr. Garima Heraclio CBC AUTO DIFFon 10-22-2022 BASO # 0.0 103/ul Normal 0.0-0.1 [facility] Comment on above: Performed By: #### C BC ####[facility] Qyfowmeova4322 [place] [id number]. Garima Pulliam Basophils/100 WBC (Bld) 0.1 % Critically low 0.2-2.0 [facility] Comment on above: Performed By: #### C BC ####[facility] Rflldipega4811 [place] [address]Dr. Garima Pulliam EO # 0.0 103/ul Normal 0.0-0.7 [facility] Comment on above: Performed By: #### C BC ####[facility] Xjwhotktvs[address] [place], [place] [address]Dr. Chapisrenu Heraclio Eosinophils/100 WBC (Bld) 0.0 % Critically low 0.9-7.0 [facility] Comment on above: Performed By: #### C BC ####[facility] Dlcwtsfery327[address] [place], [place] [address]Dr. Garima Pulliam Erythrocyte distribution width (RBC) [Ratio] 13.6 % Normal 11.0-15.0 [facility] Comment on above: Performed By: #### C BC ####[facility] Ulkkmrkiqv[address] [place], [place] [address]Dr. Garima Pulliam Hematocrit (Bld) [Volume fraction] 48.2 % Normal 42.0-54.0 [facility] Comment on above: Performed By: #### C BC ####[facility] Toubbgzibc547[address] [place], [place] [address]Dr. Garima Pulliam Hemoglobin (Bld) [Mass/Vol] 16.0 g/dL Normal 14.0-18.0 [facility] Comment on above: Performed By: #### C BC ####[facility] Yttjxbrpdt365[address] [place], [place] [address]Dr. Chapisrenu Heraclio IG # 0.02 10e3/ul Normal 0.00-0.03 [facility] Comment on above: Performed By: #### C BC ####[facility] Xvmneelwmc9721 [place] [id number]. Garima Pulliam IG % 0.3 % Normal 0.0-0.5 [facility] Comment on above: Performed By: #### C BC ####[facility] Ixswrhladh0023 [place] [address]Dr. Garima Heraclio LYMPH # 0.5 103/ul Critically low 1.2-3.8 [facility] Comment on above: Performed By: #### C BC ####[facility] Vdovwxmtmj6088 [place] [address]Dr. Garima Heraclio Lymphocytes/100 WBC (Bld) 7.7 % Critically low 20.5-60.0 [facility] Comment on above: Performed By: #### C BC ####[facility] Tftswkekae[address] [place], [place] [address]Dr. Chapisrenu Pulliam MANUAL DIFF REQ NO Normal [facility] Comment on above: Performed By: #### C BC ####[facility] Mwttsprrmw23[address] [place], [place] [address]Dr. Garima Heraclio MCH (RBC) [Entitic mass] 30.6 pg Normal 25.9-34.0 [facility] Comment on above: Performed By: #### C BC ####[facility] Revompoorj03[address] [place], [place] [address]Dr. Garima Pulliam MCHC (RBC) [Mass/Vol] 33.2 g/dL Normal 29.9-35.2 [facility] Comment on above: Performed By: #### C BC ####[facility] Vqqguxmsit[address] [place], [place] [address]Dr. Garima Heraclio MCV (RBC) [Entitic vol] 92.2 fL Normal 80.0-94.0 [facility] Comment on above: Performed By: #### C BC ####[facility] Jnzldkydel138[address] [place], [place] [address]Dr. Garima Pulliam MONO # 0.0 103/ul Critically low 0.3-0.8 [facility] Comment on above: Performed By: #### C BC ####[facility] Lmkcgsdrxg5389 [place] [id number]. Garima Pulliam Monocytes/100 WBC (Bld) 0.4 % Critically low 1.7-12.0 [facility] Comment on above: Performed By: #### C BC ####[facility] Guoseluoqj8565 [place] [id number]. Garima Pulliam NEUT # 6.2 103/ul Normal 1.4-6.5 [facility] Comment on above: Performed By: #### C BC ####[facility] Rljgpdlzbj1724 [place] [address]Dr. Garima Pulliam Neutrophils/100 WBC (Bld) 91.5 % Critically high 43.0-75.0 [facility] Comment on above: Performed By: #### C BC ####[facility] Mogeiyumbr6834 [place] [address]Dr. Garima Pulliam Platelet mean volume (Bld) [Entitic vol] 8.7 fL Critically low 9.5-13.5 [facility] Comment on above: Performed By: #### C BC ####[facility] Oqjrlfqvdl7627 [place] [address]Dr. Garima Pulliam PLT 179 103/ul Normal 150-450 [facility] Comment on above: Performed By: #### C BC ####[facility] Mmsfitfcft4653 [place] [id number]. Garima Pulliam RBC 5.23 106/ul Normal 4.70-6.10 [facility] Comment on above: Performed By: #### C BC ####[facility] Rgxetykplg7943 [place] [address]Dr. Garima Pulliam WBC 6.7 103/ul Normal 4.0-11.0 [facility] Comment on above: Performed By: #### C BC ####[facility] Dkduifuluh6660 [place] [address]Dr. Garima Pulliam PROF CHEM 8 (BAS METB)on Anion gap [Moles/Vol] 12.1 mmol/L Normal Th [facility] Comment on above: Performed By: #### B MP ####[facility] Cwsadsgcyb9851 [place] [id number]. Garima Pulliam Calcium [Mass/Vol] 8.7 mg/dL Normal 8.5-10.1 The [facility] Comment on above: Performed By: #### B MP ####[facility] Cvpkcnxser1660 [place] [id number]. Garima Pulliam Chloride [Moles/Vol] 105 mmol/L Normal 98-107 [facility] Comment on above: Performed By: #### B MP ####[facility] Ywnntskhse4780 [place] [id number]. Garima Pulliam CO2 [Moles/Vol] 25.5 mmol/L Normal 21.0-32.0 [facility] Comment on above: Performed By: #### B MP ####[facility] Afffzjzira4452 [place] [address]Dr. Garima Pulliam Creatinine [Mass/Vol] 0.63 mg/dL Critically low 0.70-1.30 [facility] Comment on above: Performed By: #### B MP ####[facility] Kvbwyxvcur0900 [place] [address]Dr. Garima Pulliam EGFR-AF S[place]FR[place] >60 Normal >=60 [facility] Comment on above: Performed By: #### B MP ####[facility] Tpdbncnlia7587 [place] [address]Dr. Garima Pluliam EGFR-NON AF [place] >60 Normal >=60 [facility] Comment on above: Performed By: #### B MP ####[facility] Auhfqmvinn9774 [place] [address]Dr. Garima Pulliam Glucose [Mass/Vol] 162 mg/dL Critically high 74-106 [facility] Comment on above: Performed By: #### B MP ####[facility] Jmdqjoimsd[address] [place], [place] [address]Dr. Garima Pulliam Potassium [Moles/Vol] 3.6 mmol/L Normal 3.5-5.1 [facility] Comment on above: Performed By: #### B MP ####[facility] Xdvumsbcqb[address] [place], [place] [address]Dr. Garima Pulliam Sodium [Moles/Vol] 139 mmol/L Normal 136-145 [facility] Comment on above: Performed By: #### B DAVID ####[facility] Hkxwlzdmjg6292 [place] [address]Dr. Garima Pulliam Urea nitrogen [Mass/Vol] 9.0 mg/dL Normal 7.0-18.0 [facility] Comment on above: Performed By: #### B DAVID ####[facility] Xfgurpghdy6119 [place] [address]Dr. Garima Pulliam Urea nitrogen/Creatinine [Mass ratio] 14.3 mg/mg Normal [facility] Comment on above: Performed By: #### B DAVID ####[facility] Lqyhddzsyt4313 [place] [address]Dr. Chapisrenu Pulliam CARDIAC NASH ADMITon 09-12- 022 CK [Catalytic activity/Vol] 304 U/L Normal 39-308 [facility] Comment on above: Performed By: #### B NANCY HERNANDEZ ####[facility] Rgwbupytkb9730 [place] [address]Dr. Garima Pulliam CK.MB [Mass/Vol] 11.81 ng/mL Critically high <=3.60 Th [facility] Comment on above: Performed By: #### B NANCY HERNANDEZ ####[facility] Nrwkedjlhz2260 [place] [address]Dr. Garima Heraclio HSTROP 13.3 pg/mL Normal 4.0-76.1 [facility] Comment on above: Result Comment: CUT- OFF POINTS HAVE BEEN ESTABLISHED BASED ON THE FOURTH UNIVERSAL DEFINITIONS OF MYOCARDIALINFARCTION. THE UPPER REFERENCE LIMIT (URL) OF TROPONIN, DEFINED THE 99TH PERCENTILE OFcTnI DISTRIBUTION IN A REFERENCE POPULATION, HAS BEEN CONFIRMED THE DECISION THRESHOLDFOR [place] DIAGNOSIS. Performed By: #### B NANCY HERNANDEZ ####[facility] Hcongeafbc7551 [place] [address]Dr. Garima Pulliam DORIS 133 ng/mL Critically high 16-96 [facility] Comment on above: Performed By: #### B NANCY HERNANDEZ ####[facility] Csghwtqewa0475 [place] [address]Dr. Garima Pulliam CBC AUTO DIFFon 09-12-2022 BASO # 0.0 103/ul Normal 0.0-0.1 [facility] Comment on above: Performed By: #### C BC ####[facility] Telsnfmgcu[address] [place], [place] [address]Dr. Garima Heraclio Basophils/100 WBC (Bld) 0.2 % Normal 0.2-2.0 [facility] Comment on above: Performed By: #### C BC ####[facility] Nsmcxmoyim99[address] [place], [place] [address]Dr. Garima Heraclio EO # 0.2 103/ul Normal 0.0-0.7 [facility] Comment on above: Performed By: #### C BC ####[facility] Ffoglkxshk52[address] [place], [place] [address]Dr. Chapisrenu Pulliam Eosinophils/100 WBC (Bld) 1.3 % Normal 0.9-7.0 [facility] Comment on above: Performed By: #### C BC ####[facility] Kynrlpureh88[address] [place], [place] [address]Dr. Garima Pulliam Erythrocyte distribution width (RBC) [Ratio] 13.7 % Normal 11.0-15.0 [facility] Comment on above: Performed By: #### C BC ####[facility] Xzsnhueohl922[address] [place], [place] [address]Dr. Garima Pulliam Hematocrit (Bld) [Volume fraction] 46.4 % Normal 42.0-54.0 [facility] Comment on above: Performed By: #### C BC ####[facility] Cjoxopwcma[address] [place], [place] [address]Dr. Garima Pulliam Hemoglobin (Bld) [Mass/Vol] 15.7 g/dL Normal 14.0-18.0 [facility] Comment on above: Performed By: #### C BC ####[facility] Byqruejdsg[address] [place], [place] [address]Dr. Garima Pulliam IG # 0.04 10e3/ul Critically high 0.00-0.03 [facility] Comment on above: Performed By: #### C BC ####[facility] Ghunmexgvb1718 [place] [id number]. Garima Pulliam IG % 0.3 % Normal 0.0-0.5 [facility] Comment on above: Performed By: #### C BC ####[facility] Qtcjmkvoxe6754 [place] [id number]. Garima Pulliam LYMPH # 1.7 103/ul Normal 1.2-3.8 [facility] Comment on above: Performed By: #### C BC ####[facility] Stzbyuuayf5768 [place] [id number]. Garima Pulliam Lymphocytes/100 WBC (Bld) 11.5 % Critically low 20.5-60.0 [facility] Comment on above: Performed By: #### C BC ####[facility] Cioavxvutu1472 [place] [id number]. Garima Pulliam MANUAL DIFF REQ NO Normal [facility] Comment on above: Performed By: #### C BC ####[facility] Ioiygzcbpq6270 [place] [id number]. Garima Pulliam MCH (RBC) [Entitic mass] 31.0 pg Normal 25.9-34.0 [facility] Comment on above: Performed By: #### C BC ####[facility] Jtrlqjrofk2332 [place] [id number]. Garima Pulliam MCHC (RBC) [Mass/Vol] 33.8 g/dL Normal 29.9-35.2 [facility] Comment on above: Performed By: #### C BC ####[facility] Gcrungkkhs0996 [place] [id number]. Garima Pulliam MCV (RBC) [Entitic vol] 91.7 fL Normal 80.0-94.0 [facility] Comment on above: Performed By: #### C BC ####[facility] Sjgmifxern5453 [place] [id number]. Garima Heraclio MONO # 0.8 103/ul Normal 0.3-0.8 [facility] [facility] Comment on above: Performed By: #### C BC ####[facility] [address] [place] [id number]. Garima Pulliam Monocytes/100 WBC (Bld) 5.2 % Normal 1.7-12.0 [facility] Comment on above: Performed By: #### C BC ####[facility] [address] [place] [id number]. Garima Pulliam NEUT # 11.7 103/ul Critically high 1.4-6.5 [facility] Comment on above: Performed By: #### C BC ####[facility] Dateqnrusd[address] [place] [id number]. Garima Pulliam Neutrophils/100 WBC (Bld) 81.5 % Critically high 43.0-75.0 [facility] Comment on above: Performed By: #### C BC ####[facility] [address] [place] [address]Dr. Garima Pulliam Platelet mean volume (Bld) [Entitic vol] 8.6 fL Critically low 9.5-13.5 [facility] Comment on above: Performed By: #### C BC ####[facility] [address] [place] [id number]. Garima Pulliam PLT 191 103/ul Normal 150-450 [facility] Comment on above: Performed By: #### C BC ####[facility] [address] [place], [place] [id number]. Garima Pulliam RBC 5.06 106/ul Normal 4.70-6.10 [facility] Comment on above: Performed By: #### C BC ####[facility] [address] [place], [place] [id number]. Garima Pulliam WBC 14.4 103/ul Critically high 4.0-11.0 [facility] Comment on above: Performed By: #### C BC ####[facility] [address] [place], [place] [address]Dr. Garima Pulliam [facility]24 SARS-CoV-2 (COVID-19) RNA MARIE+probe Ql (Unsp spec) Not detected Normal NOT DETECTED [facility] Comment on above: Result Comment: When [...] for this test is supported by the Weatherization Coordinator of Health and Human Service's declaration that [...] used). Performed By: #### C VDTBH ####[facility] [address] [place], [place] [address]Dr. Garima Pulliam LACTATE/LACTIC ACIDon 2021 Lactate [Moles/Vol] 1.0 mmol/L Normal 0.4-1.9 [facility] Comment on above: Performed By: #### L ACT ####[facility] [address] [place], [place] [address]Dr. Garima Pulliam PROF CHEM 8 (BAS METB)on Anion gap [Moles/Vol] 11.6 mmol/L Normal [facility] Comment on above: Performed By: #### B NANCY HERNANDEZ ####[facility] [address] [place] [address]Dr. Garima Pulliam Calcium [Mass/Vol] 9.2 mg/dL Normal 8.5-10.1 [facility] Comment on above: Performed By: #### B NANCY HERNANDEZ ####[facility] [address] [place] [address]Dr. Garima Pulliam Chloride [Moles/Vol] 105 mmol/L Normal 98-107 [facility] Comment on above: Performed By: #### B MP, CMADM ####[facility] [address] [place] [id number]. Garima Pulliam CO2 [Moles/Vol] 25.9 mmol/L Normal 21.0-32.0 [facility] Comment on above: Performed By: #### B DAVID, CMADM ####[facility] [address] [place] [address]Dr. Garima Pulliam Creatinine [Mass/Vol] 0.72 mg/dL Normal 0.70-1.30 [facility] Comment on above: Performed By: #### B DAVID, CMADM ####[facility] [address] [place] [id number]. Garima Pulliam EGFR-AF SOUTH AFRICAN >60 Normal >=60 [facility] Comment on above: Performed By: #### B DAVID, CMADM ####[facility] [address] [place] [address]Dr. Chapisrenu Pulliam EGFR-NON AF SOUTH AFRICAN >60 Normal >=60 [facility] Comment on above: Performed By: #### B DAVID, CMAANA ROSA ####[facility] [address] [place] [address]Dr. Garima Pulliam Glucose [Mass/Vol] 111 mg/dL Critically high 74-106 [facility] Comment on above: Performed By: #### B DAVID, CMADM ####[facility] [address] [place] [address]Dr. Chapisrenu Pulliam Potassium [Moles/Vol] 3.5 mmol/L Normal 3.5-5.1 [facility] Comment on above: Performed By: #### B DAVID, CMADM ####[facility] [address] [place] [address]Dr. Chapisrenu Pulliam Sodium [Moles/Vol] 139 mmol/L Normal 136-145 [facility] Comment on above: Performed By: #### B DAVID, CMADM ####[facility] [address] [place] [address]Dr. Garima Pulliam Urea nitrogen [Mass/Vol] 7.0 mg/dL Normal 7.0-18.0 [facility] Comment on above: Performed By: #### B DAVID, CMADM ####[facility] [address] [place], [place] [address]Oq. Garima Pulliam Urea nitrogen/Creatinine [Mass ratio] 9.7 mg/mg Normal [facility] Comment on above: Performed By: #### B MP, CMADM ####[facility] [address] [place], [place] [address]Fy. Garima Pulliam XR CHEST 1 Von 09-12-2022 XR CHEST 1 V Normal [facility] Encounters Encounter Date Encounter Type [...] Facility:H1 Payers Date Payer Category Payer Unknown [id number] 1960 Medicaid [id number] 1960 Unknown [id number] 1959 Unknown [id number] 1954 Unknown [id number] 2.16.84 0.1.154196.3.579.2.593 1954 Unknown [id number] 2.16.84 0.1.818805.3.579.2.593 1954 Unknown [id number] 2.16.84 0.1.318881.3.579.2.593 1954 Unknown [id number] 2.16.84 0.1.662699.3.579.2.593 1954 Unknown [id number] 2.16.84 0.1.088020.3.579.2.593 1954 Unknown [id number] 2.16.84 0.1.909904.3.579.2.593 1954 Unknown [id number] 2.16.84 0.1.711356.3.579.2.593 1954 Unknown [id number] 2.16.84 0.1.620211.3.579.2.593 1954 Unknown [id number] 2.16.84 0.1.748532.3.579.2.593 1954 Unknown [id number] 2.16.84 0.1.175579.3.579.2.593 1954 Unknown [id number] 2.16.84 0.1.164394.3.579.2.593 1954 Unknown [id number] 2.16.84 0.1.550283.3.579.2.593 1954 Unknown [id number] 2.16.84 0.1.618146.3.579.2.593 1954 Unknown [id number] 2.16.84 0.1.458085.3.579.2.593 1954 Unknown [id number] 2.16.84 0.1.000782.3.579.2.593 1954 Unknown [id number] 2.16.84 0.1.898318.3.579.2.593 1954 Unknown [id number] 2.16.84 0.1.462828.3.579.2.593 1954 Unknown [id number] 2.16.84 0.1.829890.3.579.2.593 1954 Unknown [id number] 2.16.84 0.1.862349.3.579.2.593 1954 Unknown [id number] 2.16.84 0.1.246978.3.579.2.593 Summary Purpose Family History No Family History Records Found Advance Directives No Advanced Directives Records Found Additional Source Comments (unrecognized sect ion and content) No Status Records Found INFORMATION SOURCE (unrecogn ized section and content) DATE CREATED AUTHOR 04/08/2023 [facility] FOR RECORDS PERTAINING TO PATIENTS [...] BE BASED ON THE PRIMARY CLINICAL RECORDS. [facility] [employer] [facility]. provides no warranty or guarantee of the accuracy or completeness of information in this document.
--- NOTE | 2024-08-07 17:13 | XR_ITS ---
The [place] [id number] Patient Name: CONSTANZA BARRETO MRN: [id number] date: 1955 Sex: M Assigned Patient Location: ED.MAIN Current Patient Location: ER Accession/Order Number: [id number] Exam Date: 08/07/2024 17:50 Report Date: 08/07/2024 18:17 At the request of: RUDDY MCGHEE Procedure: XR chest 1V EXAMINATION: XR chest 1V, , 08/07/2024 5:50 PM EDT INDICATION: Shortness of breath HISTORY: Ordering Provider Reason for Exam: Shortness of breath Technologist Note: Additional: COMPARISON: None. TECHNIQUE: Chest x-ray: One view. FINDINGS: No pneumothorax, pleural effusion or focal airspace consolidation. Heart is normal in size. Bony thorax is unremarkable. XR/XR chest 1V IMPRESSION: No acute cardiopulmonary process. Electronically authenticated by: PARAG REYES Date: 08/07/2024 18:17
--- NOTE | 2024-08-07 17:13 | ECG_ITS ---
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
--- NOTE | 2024-08-07 17:17 | ED.SOB1 ---
HPI - SOB/Dyspnea General Chief Complaint: Shortness of Breath/Dyspnea Stated Complaint: Shortness of breath Time Seen by Provider: 08/07/24 17:13 Source: patient Mode of arrival: Wheelchair History of Present Illness HPI Narrative: Patient is a 69-year-old male well-known to this emergency department with an extensive history of COPD, A-fib with RVR, CHF who returns for shortness of breath. He was seen in this emergency department 2 days ago for the same requesting a breathing treatment, he had a stable chest x-ray and no blood work was performed. He states today he had a return of the shortness of breath. He is sitting in a bedside chair watching a football game on my entrance into the room. He denies fevers, chills, sputum production, hemoptysis, new peripheral edema. He denies chest pain. He states he completed a treatment of antibiotics and steroids about 1 week ago. Related Data Home Medications ?Medication ?Instructions ?Recorded ?Confirmed albuterol sulfate 90 mcg/actuation 2 inh inhalation Q6H PRN shortness 03/13/24 05/26/24 aerosol inhaler of breath or wheezing Previous Rx's ?Medication ?Instructions ?Recorded losartan 100 mg tablet 100 mg PO DAILY #30 tabs 12/27/23 albuterol sulfate 2.5 mg/3 mL 2.5 mg (3 mL) inhalation Q6H PRN 05/26/24 (0.083 %) solution for nebulization shortness of breath or wheezing #90 mL loratadine 10 mg tablet (Claritin) 10 mg PO DAILY #20 tabs 05/30/24 albuterol sulfate 2.5 mg/3 mL 2.5 mg (3 mL) inhalation Q6H PRN 08/07/24 (0.083 %) solution for nebulization shortness of breath or wheezing #90 mL albuterol sulfate 90 mcg/actuation 2 inh inhalation Q4H PRN shortness 08/07/24 aerosol inhaler of breath or wheezing #8.5 grams Allergies Allergy/AdvReac Type Severity Reaction Status Date / Time No Known Drug Allergies Allergy Verified 05/30/24 00:40 Review of Systems ROS Constitutional Denies: fever or chills Ears, nose, mouth, and throat Denies: throat pain or nasal congestion Cardiovascular Denies: chest pain Respiratory Reports: shortness of breath; Denies: cough Gastrointestinal Denies: nausea or vomiting Musculoskeletal Denies: back pain or neck pain Integumentary/Breast Denies: rash Hematologic/Lymphatic Denies: easy bruising or easy bleeding PFSH PFSH Medical History (Updated 08/07/24 @ 18:31 by PALMIRA Pederson) Hypokalemia ?E87.6 - Hypokalemia (ICD-10) New onset type 2 diabetes mellitus ?E11.9 - Type 2 diabetes mellitus without complications (ICD-10) Lower extremity edema ?R60.0 - Localized edema (ICD-10) Edema ?R60.9 - Edema, unspecified (ICD-10) Acute hyperglycemia ?R73.9 - Hyperglycemia, unspecified (ICD-10) Tobacco abuse ?Z72.0 - Tobacco use (ICD-10) HTN (hypertension) ?I10 - Essential (primary) hypertension (ICD-10) Community acquired pneumonia ?J18.9 - Pneumonia, unspecified organism (ICD-10) Chronic obstructive pulmonary disease ?J44.9 - Chronic obstructive pulmonary disease, unspecified (ICD-10) Acute exacerbation of chronic obstructive pulmonary disease (COPD) ?J44.1 - Chronic obstructive pulmonary disease with (acute) exacerbation (ICD-10) RLL pneumonia ?J18.9 - Pneumonia, unspecified organism (ICD-10) COPD (chronic obstructive pulmonary disease) ?J44.9 - Chronic obstructive pulmonary disease, unspecified (ICD-10) Surgical History (Updated 01/29/24 @ 06:45 by Latonia Martin RN) Hx of tonsillectomy ?Z90.89 - Acquired absence of other organs (ICD-10) Family History (Updated 12/25/23 @ 21:28 by Kym Ordaz) Mother Family history of cancer Family history of hypertension Father Family history of cancer Social History Within the past year, how often did you have a drink containing alcohol: 4 or more times a week Within the past year, how many standard drinks containing alcohol did you have on a typical day: 3 or 4 Within the past year, how often did you have six or more drinks on one occasion: less than monthly Total score: 3 Score interpretation: A score of 4 or more indicates drinking is likely to affect patient's safety. Smoking status: Current every day smoker Non-prescribed substance use: cannabis (any form) Previous occupational history: retired Highest level of school completed/degree received: high school graduate Are you now , , , , never or living with a partner: In a typical week, how many times do you talk on the telephone with family, friends, or neighbors: twice per week How often do you get together with friends or relatives: once per week How often do you attend advent or adventist services: never Do you belong to any clubs or organizations such as advent groups unions, fraMobibeam or athletic groups, or school groups: no Total score: 1 Score interpretation: A score of less than or equal to 1 indicates the most socially isolated. Little interest or pleasure in doing things: not at all Feeling down, depressed, or hopeless: not at all Feel stressed/tense/nervous/anxious/difficulty sleeping: not at all Do you think of yourself as: straight/heterosexual Gender Identity: male Exam Narrative Exam Narrative: Gen.: Awake, alert, in no distress Head: Normocephalic, atraumatic ENT: Moist mucous membranes Respiratory: No respiratory distress, breathing easily, speaking in full sentences with diminished lung sounds globally Extremities: Moves extremities equally, nonpitting pedal edema bilaterally Psych: Normal mood and affect Neuro: No focal neuro deficit Skin: Warm, dry, intact Constitutional Vital Signs, click to edit/add: Last Vital Signs Temp 98.4 F 08/07/24 17:09 Pulse 74 08/07/24 17:55 Resp 22 H 08/07/24 17:09 BP 166/88 H 08/07/24 17:09 Pulse Ox 90 L 08/07/24 17:55 O2 Del Method Room Air 08/07/24 17:55 Course Vital Signs Vital signs: Vital Signs Temperature 98.4 F 08/07/24 17:09 Pulse Rate 88 08/07/24 17:09 Respiratory Rate 22 H 08/07/24 17:09 Blood Pressure 166/88 H 08/07/24 17:09 Pulse Oximetry 94 L 08/07/24 17:09 Oxygen Delivery Method Room Air 08/07/24 17:09 Temperature 98.4 F 08/07/24 17:09 Pulse Rate 74 08/07/24 17:55 Respiratory Rate 22 H 08/07/24 17:09 Blood Pressure 166/88 H 08/07/24 17:09 Pulse Oximetry 90 L 08/07/24 17:55 Oxygen Delivery Method Room Air 08/07/24 17:55 MDM - SOB/Dyspnea MDM Narrative Medical decision making narrative: Patient with stable vital signs in the ER, no hypoxia or supplemental oxygen requirements. Laboratory studies reviewed and noted, patient was agreeable to a workup today as he did not have one several days ago. BNP, troponin within normal limits. Patient was given a DuoNeb and oxygen is 94% on room air after the breathing treatment. Patient is sitting comfortably watching football in the ER and chest x-ray is unremarkable. No EKG changes. Patient is discharged home to follow-up with PCP and return to the ER if symptoms change or worsen. SUPERVISED APC VISIT, PHYSICIAN ATTESTATION: Based on the medical record the care appears appropriate. ? Medical Records Attestation: I reviewed the patient's medical records. Lab Data Attestation: I reviewed the patient's lab results. Labs: Lab Results 08/07/24 Range/Units 17:23 WBC 8.5 (4.0-11.0) 10^3/uL RBC 4.61 L (4.70-6.10) 10^6/uL Hgb 13.7 L (14.0-18.0) g/dL Hct 40.6 L (42.0-54.0) % MCV 88.1 (80.0-94.0) fL MCH 29.7 (25.9-34.0) pg MCHC 33.7 (29.9-35.2) g/dL RDW 13.2 (11.0-15.0) % Plt Count 247 (150-450) 10^3/uL MPV 8.9 L (9.5-13.5) fL Neut % (Auto) 69.0 (43.0-75.0) % Lymph % (Auto) 21.8 (20.5-60.0) % Smith % (Auto) 6.7 (1.7-12.0) % Eos % (Auto) 2.1 (0.9-7.0) % Baso % (Auto) 0.2 (0.2-2.0) % Neut # (Auto) 5.9 (1.4-6.5) 10^3/uL Lymph # (Auto) 1.9 (1.2-3.8) 10^3/uL Smith # (Auto) 0.6 (0.3-0.8) 10^3/uL Eos # (Auto) 0.2 (0.0-0.7) 10^3/uL Baso # (Auto) 0.0 (0.0-0.1) 10^3/uL Abs Immat Gran (auto) 0.02 (0.00-0.03) 10^3/uL Imm/Tot Granulo (auto) 0.2 (0.0-0.5) % PT 12.4 H (9.0-11.6) sec INR 1.19 APTT 29.2 (22.3-36.2) sec VBG pH 7.450 H (7.330-7.430) VBG pCO2 45.4 (40.0-52.0) mmHg Sodium 137 (136-145) mmol/L Potassium 3.6 (3.5-5.1) mmol/L Chloride 100 (98-107) mmol/L Carbon Dioxide 34.7 H (21.0-32.0) mmol/L Anion Gap 5.9 BUN 7.0 (7.0-18.0) mg/dL Creatinine 0.74 (0.70-1.30) mg/dL Est GFR ( Amer) >60 (>=60) Est GFR (Non-Af Amer) >60 (>=60) BUN/Creatinine Ratio 9.5 Glucose 327 H (74-106) mg/dL Calcium 8.7 (8.5-10.1) mg/dL Total Bilirubin 0.4 (0.2-1.0) mg/dL AST 33 (15-37) U/L ALT 55 (16-63) U/L Alkaline Phosphatase 103 (46-116) U/L Troponin I High Sens 21.8 (4.0-76.1) pg/mL NT-Pro-B Natriuret Pep 618.0 (<=900.0) pg/mL Total Protein 5.6 L (6.4-8.2) g/dL Albumin 3.3 L (3.4-5.0) g/dL Globulin 2.3 g/dL Albumin/Globulin Ratio 1.4 Imaging Data Chest x-ray: Attestation: I have reviewed the pertinent imaging results. Radiologist's impression: ITS Impressions Chest X-Ray 08/07/24 17:13 IMPRESSION: No acute cardiopulmonary process. Electronically authenticated by: PARAG AHALANA Date: 08/07/2024 18:17 ECG Data Attestation: I personally reviewed and interpreted this ECG as follows: (Normal sinus rhythm at a rate of [address] elevation or ectopy. EKG reviewed by attending physician) Discharge Plan Discharge Chief Complaint: Shortness of Breath/Dyspnea Clinical Impression: COPD (chronic obstructive pulmonary disease) Patient Disposition: Home, Self-Care Time of Disposition Decision: 18:31 Condition: Good Prescriptions / Home Meds: New albuterol sulfate 2.5 mg /3 mL (0.083 %) solution for nebulization 2.5 mg inhalation Q6H PRN (Reason: shortness of breath or wheezing) Qty: 90 0RF albuterol sulfate 90 mcg/actuation HFA aerosol inhaler 2 inh inhalation Q4H PRN (Reason: shortness of breath or wheezing) Qty: 8.5 0RF No Action losartan 100 mg tablet 100 mg PO DAILY Qty: 30 11RF albuterol sulfate 90 mcg/actuation HFA aerosol inhaler 2 inh inhalation Q6H PRN (Reason: shortness of breath or wheezing) albuterol sulfate 2.5 mg /3 mL (0.083 %) solution for nebulization 2.5 mg inhalation Q6H PRN (Reason: shortness of breath or wheezing) Qty: 90 0RF loratadine [Claritin] 10 mg tablet 10 mg PO DAILY Qty: 20 0RF Print Language: Croatian Instructions: COPD (Chronic Obstructive Pulmonary Disease) (ED) Referrals: SERG DUENAS [Primary Care Provider] - 1 week
[2024-08-07 17:29] VITALS: O2SAT 94
[2024-08-07 17:29] LABS: Basophils Percent Auto 0.2 % (0.2-2.0); Eosinophils Absolute Auto 0.2 10^3/uL (0.0-0.7); Eosinophils Percent Auto 2.1 % (0.9-7.0); Hematocrit 40.6 % (42.0-54.0); Hemoglobin 13.7 g/dL (14.0-18.0); Immature Granulocytes Abs Auto 0.02 10^3/uL (0.00-0.03); Immature Granulocytes Pct Auto 0.2 % (0.0-0.5); Lymphocytes Absolute Auto 1.9 10^3/uL (1.2-3.8); Lymphocytes Percent Auto 21.8 % (20.5-60.0); Mean Corpuscular HGB Conc 33.7 g/dL (29.9-35.2); Mean Corpuscular Hemoglobin 29.7 pg (25.9-34.0); Mean Corpuscular Volume 88.1 fL (80.0-94.0); Mean Platelet Volume 8.9 fL (9.5-13.5); Monocytes Absolute Auto 0.6 10^3/uL (0.3-0.8); Monocytes Percent Auto 6.7 % (1.7-12.0); Neutrophils Absolute Auto 5.9 10^3/uL (1.4-6.5); Platelet Count 247 10^3/uL (150-450); Red Blood Count 4.61 10^6/uL (4.70-6.10); Red Cell Distribution Width 13.2 % (11.0-15.0); White Blood Count 8.5 10^3/uL (4.0-11.0)
[2024-08-07 17:45] LABS: INR 1.19; PCO2 VBG 45.4 mmHg (40.0-52.0); Partial Thromboplastin Time 29.2 sec (22.3-36.2); Prothrombin Time 12.4 sec (9.0-11.6)
[2024-08-07] MEDS: IPRATROPIUM/ALBUTEROL SULFATE 3 ML AMPUL.NEB IH (17:50)
[2024-08-07 17:55] VITALS: PULSE 74; O2SAT 90
[2024-08-07 18:08] LABS: Alanine Aminotransferase 55 U/L (16-63); Albumin Globulin Ratio 1.4; Albumin Level 3.3 g/dL (3.4-5.0); Alkaline Phosphatase 103 U/L (46-116); Anion Gap 5.9; Aspartate Amino Transferase 33 U/L (15-37); BUN Creatinine Ratio 9.5; Bilirubin Total 0.4 mg/dL (0.2-1.0); Calcium 8.7 mg/dL (8.5-10.1); Carbon Dioxide 34.7 mmol/L (21.0-32.0); Chloride 100 mmol/L (98-107); Estimated GFR (African America >60 (>=60); Estimated GFR (Non-African Ame >60 (>=60); Globulin 2.3 g/dL; Glucose 327 mg/dL (74-106); Potassium 3.6 mmol/L (3.5-5.1); Sodium 137 mmol/L (136-145); Total Protein 5.6 g/dL (6.4-8.2)
[2024-08-07 18:16] LABS: Troponin I High Sensitivity 21.8 pg/mL (4.0-76.1)
[2024-08-07 18:29] VITALS: PULSE 73; O2SAT 94
[2024-08-07 18:40] VITALS: O2SAT 95
== END 2024-08-07 18:41 | disposition home or self-care (01) ==
PROVIDERS: Physician Assistant; Emergency Provider Emergency Medicine Emergency Medical Services
DX: J44.9 Chronic obstructive pulmonary disease, unspecified (principal); I48.91 Unspecified atrial fibrillation; I50.9 Heart failure, unspecified; F17.200 Nicotine dependence, unspecified, uncomplicated
CPT/HCPCS: 36415; 71045; 80053; 82800; 83880; 84484; 85025; 85610; 85730; 93005; 94640; 99285

== ENCOUNTER 2024-08-25 22:42 | Emergency (ER) | payer MEDICARE, SELFPAY ==
--- OUTSIDE RECORDS SUMMARY | 2024-08-25 22:46 | XMS_ITS | CCD ---
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 Garima Pulliam Basophils/100 WBC (Bld) 0.3 % Normal 0.2-2.0 [facility] Comment on above: Performed By: #### C BC ####[facility] Gmhkxgixki5091 [place] [address]DrAdalberto Pulliam EO # 0.3 103/ul Normal 0.0-0.7 [facility] Comment on above: Performed By: #### C BC ####[facility] Depjegolai[address] [place], [place] [address]Dr. Garima Pulliam Eosinophils/100 WBC (Bld) 2.8 % Normal 0.9-7.0 [facility] Comment on above: Performed By: #### C BC ####[facility] Jseaixevjx6562 [place] [address]Dr. Garima Pulliam Erythrocyte distribution width (RBC) [Ratio] 13.4 % Normal 11.0-15.0 [facility] Comment on above: Performed By: #### C BC ####[facility] Mnoemmaxyu9390 [place] [address]Dr. Garima Pulliam Hematocrit (Bld) [Volume fraction] 45.7 % Normal 42.0-54.0 [facility] Comment on above: Performed By: #### C BC ####[facility] Qodfwzqsvy6248 [place] [address]Dr. Garima Pulliam Hemoglobin (Bld) [Mass/Vol] 15.2 g/dL Normal 14.0-18.0 [facility] Comment on above: Performed By: #### C BC ####[facility] Wqlluerysf[address]647 [place] [address]Dr. Garima Pulliam IG # 0.02 10e3/ul Normal 0.00-0.03 [facility] Comment on above: Performed By: #### C BC ####[facility] Cogzyhvxab5787 [place] [address]Dr. Garima Pulliam IG % 0.2 % Normal 0.0-0.5 [facility] Comment on above: Performed By: #### C BC ####[facility] Qxovsjfzay1607 [place] [address]Dr. Garima Pulliam LYMPH # 2.1 103/ul Normal 1.2-3.8 [facility] Comment on above: Performed By: #### C BC ####[facility] Evjmrsfwdn8878 [place] [address]Dr. Garima Pulliam Lymphocytes/100 WBC (Bld) 23.7 % Normal 20.5-60.0 [facility] Comment on above: Performed By: #### C BC ####[facility] Jdnztkdisn4076 [place] [address]Dr. Garima Heraclio MANUAL DIFF REQ NO Normal [facility] Comment on above: Performed By: #### C BC ####[facility] Mjwlaawmoh6605 [place] [address]Dr. Garima Pulliam MCH (RBC) [Entitic mass] 30.4 pg Normal 25.9-34.0 [facility] Comment on above: Performed By: #### C BC ####[facility] Qnbutcwnsw6132 [place] [address]Dr. Garima Heraclio MCHC (RBC) [Mass/Vol] 33.3 g/dL Normal 29.9-35.2 [facility] Comment on above: Performed By: #### C BC ####[facility] Jwnyetlycd[address] [place], [place] [address]Dr. Chapisrenu Pulliam MCV (RBC) [Entitic vol] 91.4 fL Normal 80.0-94.0 [facility] Comment on above: Performed By: #### C BC ####[facility] Zhcjuvkvxg[address] [place], [place] [address]Dr. Garima Heraclio MONO # 0.7 103/ul Normal 0.3-0.8 [facility] Comment on above: Performed By: #### C BC ####[facility] Gwcsbzkiwn[address] [place], [place] [address]Dr. Chapisrenu Pulliam Monocytes/100 WBC (Bld) 8.3 % Normal 1.7-12.0 [facility] Comment on above: Performed By: #### C BC ####[facility] Lxzdeunait8444 [place] [address]Dr. Chapisrenu Heraclio NEUT # 5.8 103/ul Normal 1.4-6.5 [facility] Comment on above: Performed By: #### C BC ####[facility] Pjjcfbkxft[address] [place], [place] [address]Dr. Garima Pulliam Neutrophils/100 WBC (Bld) 64.7 % Normal 43.0-75.0 [facility] Comment on above: Performed By: #### C BC ####[facility] Enhrgpqnim7898 [place] [address]Dr. Garima Pulliam Platelet mean volume (Bld) [Entitic vol] 8.6 fL Critically low 9.5-13.5 [facility] Comment on above: Performed By: #### C BC ####[facility] Xndyjakfve9323 [place] [address]Dr. Garima Pulliam PLT 230 103/ul Normal 150-450 [facility] Comment on above: Performed By: #### C BC ####[facility] Jmfaujkmyy4823 [place] [address]Dr. Chapisrenu Heraclio RBC 5.00 106/ul Normal 4.70-6.10 [facility] Comment on above: Performed By: #### C BC ####[facility] Fvaemesqzy2985 [place] [address]Dr. Garima Heraclio WBC 9.0 103/ul Normal 4.0-11.0 [facility] Comment on above: Performed By: #### C BC ####[facility] Xeapuijgfu3917 [place] [address]Dr. Garima Pulliam MAGNESIUMon 04-04-2023 Magnesium [Mass/Vol] 1.8 mg/dL Normal 1.8-2.4 [facility] Comment on above: Performed By: #### M G ####[facility] Ouvfywyuyz9658 [place] [address]Dr. Chapisrenu Pulliam PROF 14(COMP METB)on 023 Albumin [Mass/Vol] 3.8 g/dL Normal 3.4-5.0 [facility] Comment on above: Performed By: #### C MP ####[facility] Hxhfbrlhoo0455 [place] [address]Dr. Garima Pulliam Albumin/Globulin [Mass ratio] 1.2 {ratio} Normal [facility] Comment on above: Performed By: #### C MP ####[facility] Xfcufcksio4930 [place] [address]Dr. Garima Heraclio ALP [Catalytic activity/Vol] 84 U/L Normal 46-116 [facility] Comment on above: Performed By: #### C MP ####[facility] Pvmvrfkwqn3590 [place] [phone]. Garima Pulliam ALT [Catalytic activity/Vol] 31 U/L Normal 16-63 [facility] Comment on above: Performed By: #### C MP ####[facility] Ylabntadzb6134 [place] [address]Dr. Garima Pulliam Anion gap [Moles/Vol] 12.2 mmol/L Normal [facility] Comment on above: Performed By: #### C MP ####[facility] Kqnssdqbrr2961 [place] [address]Dr. Garima Pulliam AST [Catalytic activity/Vol] 23 U/L Normal 15-37 [facility] Comment on above: Performed By: #### C MP ####[facility] Ptzrsvilom[address] [place], [place] [address]Dr. Garima Pulliam Bilirubin [Mass/Vol] 0.5 mg/dL Normal 0.2-1.0 [facility] Comment on above: Performed By: #### C MP ####[facility] Mskvtzkjqw[address] [place], [place] [address]Dr. Garima Pulliam Calcium [Mass/Vol] 9.2 mg/dL Normal 8.5-10.1 [facility] Comment on above: Performed By: #### C MP ####[facility] Phyobceoan[address] [place], [place] [address]Dr. Garima Pulliam Chloride [Moles/Vol] 103 mmol/L Normal 98-107 [facility] Comment on above: Performed By: #### C MP ####[facility] Ccjzsknxaq6523 [place] [address]Dr. Garima Pulliam CO2 [Moles/Vol] 28.5 mmol/L Normal 21.0-32.0 [facility] Comment on above: Performed By: #### C MP ####[facility] Jjknlyydid[address] [place], [place] [address]Dr. Garima Pulliam Creatinine [Mass/Vol] 0.74 mg/dL Normal 0.70-1.30 [facility] Comment on above: Performed By: #### C MP ####[facility] Dtiahnccjh9517 [place] [phone]. Garima Pulliam EGFR-AF CITIZEN OF [place] >60 Normal >=60 [facility] Comment on above: Performed By: #### C MP ####[facility] Dkwpvrevnd6495 [place] [address]Dr. Garima Heraclio EGFR-NON AF CITIZEN OF [place] >60 Normal >=60 [facility] Comment on above: Performed By: #### C MP ####[facility] Vxdcoxemhl8152 [place] [phone]. Garima Heraclio Globulin (S) [Mass/Vol] 3.1 g/dL Normal [facility] Comment on above: Performed By: #### C MP ####[facility] Bmbfabrjpa[address] [place], [place] [address]Dr. Garima Heraclio Glucose [Mass/Vol] 93 mg/dL Normal 74-106 [facility] Comment on above: Performed By: #### C MP ####[facility] Ekzjlucorf54[address] [place], [place] [address]Dr. Garima Heraclio Potassium [Moles/Vol] 3.7 mmol/L Normal 3.5-5.1 [facility] Comment on above: Performed By: #### C MP ####[facility] Erzhkhnlrg36[address] [place], [place] [address]Dr. Garima Heraclio Protein [Mass/Vol] 6.9 g/dL Normal 6.4-8.2 [facility] Comment on above: Performed By: #### C MP ####[facility] Drdflbnzpv03[address] [place], [place] [address]Dr. Garima Heraclio Sodium [Moles/Vol] 140 mmol/L Normal 136-145 [facility] Comment on above: Performed By: #### C MP ####[facility] Ycahgcfgyg06[address] [place], [place] [address]Dr. Garima Pulliam Urea nitrogen [Mass/Vol] 8.0 mg/dL Normal 7.0-18.0 [facility] Comment on above: Performed By: #### C MP ####[facility] Bomieuzyue[address] [place], [place] [address]Dr. Garima Pulliam Urea nitrogen/Creatinine [Mass ratio] 10.8 mg/mg Normal [facility] Comment on above: Performed By: #### C DAVID ####[facility] Aslbspzxtx9590 [place] [address]Dr. Garima Pulliam AMMONIAon 03-30-2023 Ammonia (P) [Moles/Vol] 11 umol/L Normal 11-32 [facility] Comment on above: Performed By: #### A MM ####[facility] Mtmxtimrlh[address] [place], [place] [address]Dr. Garima Pulliam CARDIAC NASH ADMITon 023 CK [Catalytic activity/Vol] 232 U/L Normal 39-308 [facility] Comment on above: Performed By: #### C NANCY HERNANDEZ ####[facility] Ioymshxhki5870 [place] [address]Dr. Chapisrenu Pulliam CK.MB [Mass/Vol] 4.83 ng/mL Critically high <=3.60 [facility] Comment on above: Performed By: #### C NANCY HERNANDEZ ####[facility] Xtzgujjcxr[address] [place], [place] [address]Dr. Garima Pulliam HSTROP 10.5 pg/mL Normal 4.0-76.1 [facility] Comment on above: Result Comment: CUT- OFF POINTS HAVE BEEN ESTABLISHED BASED ON THE FOURTH UNIVERSAL DEFINITIONS OF MYOCARDIALINFARCTION. THE UPPER REFERENCE LIMIT (URL) OF TROPONIN, DEFINED THE 99TH PERCENTILE OFcTnI DISTRIBUTION IN A REFERENCE POPULATION, HAS BEEN CONFIRMED THE DECISION THRESHOLDFOR ND DIAGNOSIS. Performed By: #### C NANCY HERNANDEZ ####[facility] Ftvajtfrtc[address] [place], [place] [address]Dr. Garima Heraclio DORIS 79 ng/mL Normal 16-96 [facility] Comment on above: Performed By: #### C NANCY HERNANDEZ ####[facility] Gzxhuxicnl[address] [place], [place] [address]Dr. Garima Heraclio CBC AUTO DIFFon 03-30-2023 BASO # 0.0 103/ul Normal 0.0-0.1 [facility] Comment on above: Performed By: #### C BC ####[facility] Gqhcsfllke7593 [place] [id number]. Garima Pulliam Basophils/100 WBC (Bld) 0.1 % Critically low 0.2-2.0 [facility] Comment on above: Performed By: #### C BC ####[facility] Agaergtlmr0977 [place] [phone]. Garima Pulliam EO # 0.3 103/ul Normal 0.0-0.7 [facility] Comment on above: Performed By: #### C BC ####[facility] Ckcutedmqr[address] [place], [place] [address]Dr. Garima Pulliam Eosinophils/100 WBC (Bld) 3.3 % Normal 0.9-7.0 [facility] Comment on above: Performed By: #### C BC ####[facility] Fakhnkcnve4[address] [place], [place] [address]Dr. Garima Pulliam Erythrocyte distribution width (RBC) [Ratio] 13.5 % Normal 11.0-15.0 [facility] Comment on above: Performed By: #### C BC ####[facility] Iaykdclkyj[address] [place], [place] [address]Dr. Garima Pulliam Hematocrit (Bld) [Volume fraction] 42.9 % Normal 42.0-54.0 [facility] Comment on above: Performed By: #### C BC ####[facility] Ewzekccedp[address] [place], [place] [address]Dr. Garima Pulliam Hemoglobin (Bld) [Mass/Vol] 13.9 g/dL Critically low 14.0-18.0 [facility] Comment on above: Performed By: #### C BC ####[facility] Ugywtcuorv6504 [place] [id number]. Garima Pulliam IG # 0.01 10e3/ul Normal 0.00-0.03 [facility] Comment on above: Performed By: #### C BC ####[facility] Mjzmbgonjs[address] [place], [place] [address]Dr. Garima Pulliam IG % 0.1 % Normal 0.0-0.5 [facility] Comment on above: Performed By: #### C BC ####[facility] Gmuorkhuxr6495 [place] [id number]. Garima Pulliam LYMPH # 1.7 103/ul Normal 1.2-3.8 [facility] Comment on above: Performed By: #### C BC ####[facility] Jtgikoobsw0719 [place], [place] [address]Ab. Garima Pulliam Lymphocytes/100 WBC (Bld) 22.8 % Normal 20.5-60.0 [facility] Comment on above: Performed By: #### C BC ####[facility] Nzarpssbty9289 [place] [id number]. Garima Heraclio MANUAL DIFF REQ NO Normal [facility] Comment on above: Performed By: #### C BC ####[facility] Pymfitpznq8464 [place] [phone]. Garima Heraclio MCH (RBC) [Entitic mass] 30.5 pg Normal 25.9-34.0 [facility] Comment on above: Performed By: #### C BC ####[facility] Jvsbihbmuf7572 [place] [phone]. Garima Pulliam MCHC (RBC) [Mass/Vol] 32.4 g/dL Normal 29.9-35.2 [facility] Comment on above: Performed By: #### C BC ####[facility] Arbziqxkrd6320 [place] [phone]. Garima Heraclio MCV (RBC) [Entitic vol] 94.1 fL Critically high 80.0-94.0 [facility] Comment on above: Performed By: #### C BC ####[facility] Xuyizpwymh1563 [place] [id number]. Garima Heraclio MONO # 0.7 103/ul Normal 0.3-0.8 [facility] Comment on above: Performed By: #### C BC ####[facility] Dwxcmtakox1421 [place] [phone]. Garima Heraclio Monocytes/100 WBC (Bld) 8.6 % Normal 1.7-12.0 [facility] Comment on above: Performed By: #### C BC ####[facility] Fnwqcckrht6688 [place] [id number]. Garima Pulliam NEUT # 4.9 103/ul Normal 1.4-6.5 [facility] Comment on above: Performed By: #### C BC ####[facility] Ggkldrhzrq9352 [place] [phone]. Garima Pulliam Neutrophils/100 WBC (Bld) 65.1 % Normal 43.0-75.0 [facility] Comment on above: Performed By: #### C BC ####[facility] Rbtrvxoann0991 [place] [phone]. Garima Pulliam Platelet mean volume (Bld) [Entitic vol] 8.5 fL Critically low 9.5-13.5 [facility] Comment on above: Performed By: #### C BC ####[facility] Sybnkcvbwz9079 [place] [id number]. Garima Pulliam PLT 219 103/ul Normal 150-450 [facility] Comment on above: Performed By: #### C BC ####[facility] Yrljygleky6965 [place] [id number]. Garima Pulliam RBC 4.56 106/ul Critically low 4.70-6.10 [facility] Comment on above: Performed By: #### C BC ####[facility] Fqyncavojx8739 [place] [phone]. Garima Pulliam WBC 7.6 103/ul Normal 4.0-11.0 [facility] Comment on above: Performed By: #### C BC ####[facility] Dlookgzctu4411 [place] [phone]. Garima Pulliam LACTATE/LACTIC ACIDon 2022 Lactate [Moles/Vol] 1.2 mmol/L Normal 0.4-2.0 [facility] Comment on above: Performed By: #### L ACT ####[facility] Rpbicrhiks2027 [place] [phone]. Garima Pulliam MAGNESIUMon 03-30-2023 Magnesium [Mass/Vol] 1.8 mg/dL Normal 1.8-2.4 [facility] Comment on above: Performed By: #### M G ####[facility] Jgxlcvgktl0758 [place] [address]Dr. Garima Pulliam PROF 14(COMP METB)on 023 Albumin [Mass/Vol] 3.5 g/dL Normal 3.4-5.0 [facility] Comment on above: Performed By: #### C DAVID, CMAANA ROSA ####[facility] Zbgzppdaff7042 [place] [address]Dr. Garima Pulliam Albumin/Globulin [Mass ratio] 1.2 {ratio} Normal [facility] Comment on above: Performed By: #### C DAVID, CMAANA ROSA ####[facility] Hzjeastuit6739 [place] [address]Dr. Garima Pulliam ALP [Catalytic activity/Vol] 85 U/L Normal 46-116 [facility] Comment on above: Performed By: #### C DAVID, CMAANA ROSA ####[facility] Pztvpjevug[address] [place], [place] [address]Dr. Garima Pulliam ALT [Catalytic activity/Vol] 29 U/L Normal 16-63 [facility] Comment on above: Performed By: #### C DAVID, CMAANA ROSA ####[facility] Mprtjhtlvj7952 [place] [address]Dr. Garima Pulliam Anion gap [Moles/Vol] 8.0 mmol/L Normal [facility] Comment on above: Performed By: #### C DAVID, CMAANA ROSA ####[facility] Cfjirmoyvt7311 [place] [address]Dr. Garima Pulliam AST [Catalytic activity/Vol] 18 U/L Normal 15-37 [facility] Comment on above: Performed By: #### C DAVID, CMADM ####[facility] Vidxbirhxf9664 [place] [address]Dr. Garima Pulliam Bilirubin [Mass/Vol] 0.4 mg/dL Normal 0.2-1.0 [facility] Comment on above: Performed By: #### C DAVID, CMADM ####[facility] Juruvhezkz3759 [place] [address]Dr. Garima Pulliam Calcium [Mass/Vol] 8.8 mg/dL Normal 8.5-10.1 [facility] Comment on above: Performed By: #### C DAVID, NANCY ####[facility] Lbnoszkhbr0233 [place] [address]Dr. Chapisrenu Pulliam Chloride [Moles/Vol] 108 mmol/L Critically high 98-107 [facility] Comment on above: Performed By: #### C DAVID, NANCY ####[facility] Puwkslhnqm8202 [place] [address]Dr. Garima Pulliam CO2 [Moles/Vol] 29.6 mmol/L Normal 21.0-32.0 [facility] Comment on above: Performed By: #### C NANCY HERNANDEZ ####[facility] Mljpwkbhnm[address] [place], [place] [address]Dr. Garima Pulliam Creatinine [Mass/Vol] 0.77 mg/dL Normal 0.70-1.30 [facility] Comment on above: Performed By: #### C NANCY HERNANDEZ ####[facility] Jxstsajjdv[address] [place], [place] [address]Dr. Garima Heraclio EGFR-AF CITIZ[place] >60 Normal >=60 [facility] Comment on above: Performed By: #### C NANCY HERNANDEZ ####[facility] Fmgiqtbikb[address] [place], [place] [address]Dr. Garima Heraclio EGFR-NON AF CITIZEN OF [place] >60 Normal >=60 [facility] Comment on above: Performed By: #### C NANCY HERNANDEZ ####[facility] Kkqyciaxlc6244 [place] [address]Dr. Garima Pulliam Globulin (S) [Mass/Vol] 2.8 g/dL Normal [facility] Comment on above: Performed By: #### C NANCY HERNANDEZ ####[facility] Sakpzauslf9463 [place] [address]Dr. Garima Pulliam Glucose [Mass/Vol] 207 mg/dL Critically high 74-[address] [facility] Comment on above: Performed By: #### C NANCY HERNANDEZ ####[facility] Wdrmzrqtwq[address] [place], [place] [address]Dr. Garima Pulliam Potassium [Moles/Vol] 4.6 mmol/L Normal 3.5-5.1 [facility] Comment on above: Performed By: #### C DAVID, NANCY ####[facility] Uiwmitloyh5740 [place] [address]Dr. Garima Pulliam Protein [Mass/Vol] 6.3 g/dL Critically low 6.4-8.2 [facility] Comment on above: Performed By: #### C DAVID, NANCY ####[facility] Lviylabnph1023 [place] [address]Dr. Garima Pulliam Sodium [Moles/Vol] 141 mmol/L Normal 136-145 [facility] Comment on above: Performed By: #### C DAVID, NANCY ####[facility] Apdssshytw0108 [place] [address]Dr. Garima Pulliam Urea nitrogen [Mass/Vol] 9.0 mg/dL Normal 7.0-18.0 [facility] Comment on above: Performed By: #### C DAVID, NANCY ####[facility] Ywamirxxfi5474 [place] [address]Dr. Garima Pulliam Urea nitrogen/Creatinine [Mass ratio] 11.7 mg/mg Normal [facility] Comment on above: Performed By: #### C DAVID, NANCY ####[facility] Ptgqnitkuc9506 [place] [address]Dr. Garima Pulliam XR CHEST 1 Von 03-30-2023 XR CHEST 1 V Normal [facility] BNPon 03-27-2023 Natriuretic peptide B (Bld) [Mass/Vol] 251.0 pg/mL Normal <=900.0 [facility] Comment on above: Performed By: #### C MP, BNP, LIPID ####[facility] Usfyrhbvfc2824 [place] [address]Dr. Garima Pulliam GLYCOHEMOGLOBIN A1Con 2022 ADA RECOMMENDATION SEE BELOW Normal [facility] Comment on above: Result Comment: ADA RECOMMENDED LIMIT 4.0 - 6.0 ADA THERAPEUTIC TARGET < 7.0 ACTION SUGGESTED > 7.0 Performed By: #### A 1C ####[facility] Ocnolhdarg9643 [place] [address]Dr. Garima Pulliam Glucose [Mass/Vol] 180 mg/dL Normal [facility] Comment on above: Performed By: #### A 1C ####[facility] Cnoikfyjhj[address] [place], [place] [address]Dr. Chapisrenu Pulliam HbA1c (Bld) [Mass fraction] 7.9 % Critically high 4.5-6.2 [facility] Comment on above: Performed By: #### A 1C ####[facility] Gykaapuwat[address] [place], [place] [address]Dr. Garima Pulliam HEMOGRAM AND PLATELon 2022 Hematocrit (Bld) [Volume fraction] 45.7 % Normal 42.0-54.0 [facility] Comment on above: Performed By: #### H H ####[facility] Ahdqpicamk[address] [place], [place] [address]Dr. Garima Pulliam Hemoglobin (Bld) [Mass/Vol] 15.1 g/dL Normal 14.0-18.0 [facility] Comment on above: Performed By: #### H H ####[facility] Mvxarcktws[address] [place], [place] [address]Dr. Garima Pulliam MCH (RBC) [Entitic mass] 30.0 pg Normal 25.9-34.0 [facility] Comment on above: Performed By: #### H H ####[facility] Lxrskanxsc8[address] [place], [place] [address]Dr. Garima Pulliam MCHC (RBC) [Mass/Vol] 33.0 g/dL Normal 29.9-35.2 [facility] Comment on above: Performed By: #### H H ####[facility] Ztekebsiot7[address] [place], [place] [address]Dr. Garima Pulliam MCV (RBC) [Entitic vol] 90.7 fL Normal 80.0-94.0 [facility] Comment on above: Performed By: #### H H ####[facility] Pdffmclmum[address] [place], [place] [address]Dr. Garima Pulliam PLT 222 103/ul Normal 150-450 [facility] Comment on above: Performed By: #### H H ####[facility] Zikhztddtj3421 [place] [id number]. Garima Pulliam RBC 5.04 106/ul Normal 4.70-6.10 [facility] Comment on above: Performed By: #### H H ####[facility] Yiyfaxgaka4949 [place] [id number]. Garima Pulliam WBC 8.7 103/ul Normal 4.0-11.0 [facility] Comment on above: Performed By: #### H H ####[facility] Brjmnflnkd0623 [place] [id number]. Garima Pulliam LIPID PROFILEon 03-27-2023 CHOL-HDL RATIO NORM SEE BELOW Normal [facility] Comment on above: Result Comment: 3.3 - 4.4 LOW RISK 4.4 - 7.1 AVERAGE RISK 7.1 - 11.0 MODERATE RISK >11.0 HIGH RISK Performed By: #### C MP, BNP, LIPID ####[facility] Qagmizuzbo0367 [place] [address]Dr. Garima Pulliam Cholesterol [Mass/Vol] 113 mg/dL Normal <=200 [facility] Comment on above: Performed By: #### C MP, BNP, LIPID ####[facility] Msozhvszlk5001 [place] [address]Dr. Garima Pulliam Cholesterol in HDL [Mass/Vol] 51 mg/dL Normal 40-60 [facility] Comment on above: Performed By: #### C MP, BNP, LIPID ####[facility] Zqzaiqxche7884 [place] [address]Dr. Garima Pulliam Cholesterol in LDL [Mass/Vol] 49.8 mg/dL Normal [facility] Comment on above: Performed By: #### C MP, BNP, LIPID ####[facility] Tekxiltfxw7767 [place] [address]Dr. Garima Pulliam Cholesterol.total/Cho lesterol in HDL [Mass ratio] 2.2 {ratio} Normal [facility] Comment on above: Performed By: #### C MP, BNP, LIPID ####[facility] Tkhouydedr0239 [place] [address]Dr. Garima Pulliam HDL NORMAL > or = 60 mg/dl - LOW CARDIOVASCULAR RISK <40 mg/dl - HIGH CARDIOVASCULAR RISK Normal [facility] Comment on above: Performed By: #### C MP, BNP, LIPID ####[facility] Hlcvbgqrcg6109 [place] [address]Dr. Garima Pulliam LDL CALC NORMAL SEE BELOW Normal [facility] Comment on above: Result Comment: <100 mg/dl OPTIMAL 100 - 129 mg/dl NEAR OR ABOVE OPTIMAL 130 - 159 mg/dl BORDERLINE HIGH 160 - 189 mg/dl HIGH >190 mg/dl VERY HIGH Performed By: #### C MP, BNP, LIPID ####[facility] Okhkeelyht4255 [place] [address]Dr. Garima Pulliam Triglyceride [Mass/Vol] 61 mg/dL Normal <=150 [facility] Comment on above: Performed By: #### C MP, BNP, LIPID ####[facility] Cnvnmluklk6645 [place] [address]Dr. Garima Pulliam VLDL CALC 12.2 mg/dL Normal [facility] Comment on above: Performed By: #### C MP, BNP, LIPID ####[facility] Dbwqbsgbqv7742 [place] [address]Dr. Garima Pulliam PROF 14(COMP METB)on 023 Albumin [Mass/Vol] 3.5 g/dL Normal 3.4-5.0 [facility] Comment on above: Performed By: #### C MP, BNP, LIPID ####[facility] [address]pm[address]rb[address] [place] [address]Dr. Garima Pulliam Albumin/Globulin [Mass ratio] 1.2 {ratio} Normal [facility] Comment on above: Performed By: #### C MP, BNP, LIPID ####[facility] Xyxexovbys[address] [place] [address]Dr. Garima Pulliam ALP [Catalytic activity/Vol] 82 U/L Normal 46-116 [facility] Comment on above: Performed By: #### C MP, BNP, LIPID ####[facility] Hfgqluekfj[address] [place] [address]Dr. Garima Pulliam ALT [Catalytic activity/Vol] 33 U/L Normal 16-63 [facility] Comment on above: Performed By: #### C MP, BNP, LIPID ####[facility] Fykkmkeokr[address] [place] [address]Dr. Garima Pulliam Anion gap [Moles/Vol] 9.9 mmol/L Normal [facility] Comment on above: Performed By: #### C MP, BNP, LIPID ####[facility] Rqabobytiy5938 [place] [address]Dr. Garima Pulliam AST [Catalytic activity/Vol] 24 U/L Normal 15-37 [facility] Comment on above: Performed By: #### C MP, BNP, LIPID ####[facility] Wtzrvqhvhp[address] [place] [address]Dr. Garima Pulliam Bilirubin [Mass/Vol] 0.6 mg/dL Normal 0.2-1.0 [facility] Comment on above: Performed By: #### C MP, BNP, LIPID ####[facility] Tgpzatkxow[address] [place] [address]Dr. Garima Pulliam Calcium [Mass/Vol] 9.2 mg/dL Normal 8.5-10.1 [facility] Comment on above: Performed By: #### C MP, BNP, LIPID ####[facility] Rdchjxuooa7534 [place] [address]Dr. Garima Pulliam Chloride [Moles/Vol] 106 mmol/L Normal 98-107 [facility] Comment on above: Performed By: #### C MP, BNP, LIPID ####[facility] Pvydyprtdu38[address] [place] [address]Dr. Garima Pulliam CO2 [Moles/Vol] 32.3 mmol/L Critically high 21.0-32.0 [facility] Comment on above: Performed By: #### C MP, BNP, LIPID ####[facility] Ovsaqqgmto4198 [place] [address]Dr. Garima Pulliam Creatinine [Mass/Vol] 0.70 mg/dL Normal 0.70-1.30 [facility] Comment on above: Performed By: #### C MP, BNP, LIPID ####[facility] Stirlscmdh37[address] [place] [phone]. Garima Pulliam EGFR-AF CITIZEN OF [place] >60 Normal >=60 [facility] Comment on above: Performed By: #### C MP, BNP, LIPID ####[facility] Ltuxrcqsda7511 [place] [phone]. Garima Pulliam EGFR-NON AF CITIZEN OF [place] >60 Normal >=60 [facility] Comment on above: Performed By: #### C MP, BNP, LIPID ####[facility] Nbkmrwiyaa6367 [place] [address]Dr. Garima Pulliam Globulin (S) [Mass/Vol] 2.9 g/dL Normal [facility] Comment on above: Performed By: #### C MP, BNP, LIPID ####[facility] Mfuhrvitcg9177 [place] [address]Dr. Garima Pulliam Glucose [Mass/Vol] 111 mg/dL Critically high 74-[address] [facility] Comment on above: Performed By: #### C MP, BNP, LIPID ####[facility] Cwfrxpsofh4636 [place] [address]Dr. Garima Pulliam Potassium [Moles/Vol] 4.2 mmol/L Normal 3.5-5.1 [facility] Comment on above: Performed By: #### C MP, BNP, LIPID ####[facility] Bbtsceacoj5319 [place] [address]Dr. Garima Pulliam Protein [Mass/Vol] 6.4 g/dL Normal 6.4-8.2 [facility] Comment on above: Performed By: #### C MP, BNP, LIPID ####[facility] Kfavtafyoq3706 [place] [address]Dr. Garima Pulliam Sodium [Moles/Vol] 144 mmol/L Normal 136-145 [facility] Comment on above: Performed By: #### C MP, BNP, LIPID ####[facility] Vwbeihtpgl1680 [place] [address]Dr. Garima Pulliam Urea nitrogen [Mass/Vol] 7.0 mg/dL Normal 7.0-18.0 [facility] Comment on above: Performed By: #### C MP, BNP, LIPID ####[facility] Ubpgrtckxg8[address] [place], [place] [address]Dr. Garima Pulliam Urea nitrogen/Creatinine [Mass ratio] 10.0 mg/mg Normal [facility] Comment on above: Performed By: #### C MP, BNP, LIPID ####[facility] Itsoebxazm[address] [place], [place] [address]Dr. Garima Pulliam BNPon 03-22-2023 Natriuretic peptide B (Bld) [Mass/Vol] 103.0 pg/mL Normal <=900.0 [facility] Comment on above: Performed By: #### B TRUST OFFICER, BMP ####[facility] Jszgzcykzn[address] [place], [place] [address]Dr. Garima Pulliam CBC AUTO DIFFon 03-22-2023 BASO # 0.0 103/ul Normal 0.0-0.1 [facility] Comment on above: Performed By: #### C BC ####[facility] Dethxyyduy[address] [place], [place] [address]Dr. Garima Heraclio Basophils/100 WBC (Bld) 0.3 % Normal 0.2-2.0 [facility] Comment on above: Performed By: #### C BC ####[facility] Sycziiywlh[address] [place], [place] [address]Dr. Garima Pulliam EO # 0.2 103/ul Normal 0.0-0.7 [facility] Comment on above: Performed By: #### C BC ####[facility] Ormvrlvkvf[address] [place], [place] [address]Dr. Garima Pulliam Eosinophils/100 WBC (Bld) 2.2 % Normal 0.9-7.0 [facility] Comment on above: Performed By: #### C BC ####[facility] Hbsjrfcqtl06[address] [place], [place] [address]Dr. Garima Pulliam Erythrocyte distribution width (RBC) [Ratio] 13.2 % Normal 11.0-15.0 [facility] Comment on above: Performed By: #### C BC ####[facility] Bfxaxbbnqe4478 [place] [phone]. Garima Pulliam Hematocrit (Bld) [Volume fraction] 43.4 % Normal 42.0-54.0 [facility] Comment on above: Performed By: #### C BC ####[facility] Wrofuytgrh16[address] [place] [address]Dr. Garima Heraclio Hemoglobin (Bld) [Mass/Vol] 14.3 g/dL Normal 14.0-18.0 [facility] Comment on above: Performed By: #### C BC ####[facility] Xirglelvzj6798 [place] [address]Dr. Garima Pulliam IG # 0.02 10e3/ul Normal 0.00-0.03 [facility] Comment on above: Performed By: #### C BC ####[facility] Fzgmtrymyk4483 [place] [address]Dr. Garima Pulliam IG % 0.3 % Normal 0.0-0.5 [facility] Comment on above: Performed By: #### C BC ####[facility] Bpsyfoefjj0185 [place] [address]Dr. Chapisrenu Pulliam LYMPH # 2.0 103/ul Normal 1.2-3.8 [facility] Comment on above: Performed By: #### C BC ####[facility] Nwrqnijsde7744 [place] [address]Dr. Chapisrenu Pulliam Lymphocytes/100 WBC (Bld) 24.8 % Normal 20.5-60.0 [facility] Comment on above: Performed By: #### C BC ####[facility] Nfzjcmprrg8287 [place] [address]Dr. Chapisrenu Pulliam MANUAL DIFF REQ NO Normal [facility] Comment on above: Performed By: #### C BC ####[facility] Ouvpnukybh7765 [place] [address]Dr. Garima Heraclio MCH (RBC) [Entitic mass] 30.0 pg Normal 25.9-34.0 [facility] Comment on above: Performed By: #### C BC ####[facility] Jwxpvjvrwn[address] [place], [place] [address]Dr. Garima Pulliam MCHC (RBC) [Mass/Vol] 32.9 g/dL Normal 29.9-35.2 [facility] Comment on above: Performed By: #### C BC ####[facility] Jzprpfebzs3178 [place] [phone]. Garima Pulliam MCV (RBC) [Entitic vol] 91.0 fL Normal 80.0-94.0 [facility] Comment on above: Performed By: #### C BC ####[facility] Nlqoqfpsbk0536 [place] [phone]. Garima Heraclio MONO # 0.8 103/ul Normal 0.3-0.8 [facility] Comment on above: Performed By: #### C BC ####[facility] Ovvmgmltkh9309 [place] [address]Dr. Chapisrenu Pulliam Monocytes/100 WBC (Bld) 9.7 % Normal 1.7-12.0 [facility] Comment on above: Performed By: #### C BC ####[facility] Hleshymfjp0317 [place] [address]Dr. Garima Pulliam NEUT # 4.9 103/ul Normal 1.4-6.5 [facility] Comment on above: Performed By: #### C BC ####[facility] Pxvauoigxr8915 [place] [phone]. Garima Heraclio Neutrophils/100 WBC (Bld) 62.7 % Normal 43.0-75.0 [facility] Comment on above: Performed By: #### C BC ####[facility] Lgrxcxpabg6728 [place] [phone]. Garima Heraclio Platelet mean volume (Bld) [Entitic vol] 8.8 fL Critically low 9.5-13.5 [facility] Comment on above: Performed By: #### C BC ####[facility] Xkyptxggwo8303 [place] [phone]. Garima Heraclio PLT 198 103/ul Normal 150-450 [facility] Comment on above: Performed By: #### C BC ####[facility] Nxpkaefjsr5947 [place] [phone]. Garima Heraclio RBC 4.77 106/ul Normal 4.70-6.10 [facility] Comment on above: Performed By: #### C BC ####[facility] Arzziwqwbh4400 [place] [phone]. Garima Heraclio WBC 7.9 103/ul Normal 4.0-11.0 [facility] Comment on above: Performed By: #### C BC ####[facility] Lpmlxmpoax0719 [place] [phone]. Garima Heraclio D-DIMERon 03-22-2023 D-DIMER 0.85 mg/L FEU Critically high <=0.59 [facility] Comment on above: Performed By: #### D DIM ####[facility] Mesundyiia4[address] [place] [address]Dr. Garima Pulliam D-DIMER COMMENTS SEE BELOW Normal [facility] Comment on above: Result Comment: Incr [...] Performed By: #### D DIM ####[facility] Rdgwgncjdb[address] [place], [place] [address]Dr. Garima Pulliam PROF CHEM 8 (BAS METB)on Anion gap [Moles/Vol] 6.9 mmol/L Normal [facility] Comment on above: Performed By: #### B TRUST OFFICER, BMP ####[facility] Tdcyxuirvu0350 [place] [address]Dr. Garima Pulliam Calcium [Mass/Vol] 8.9 mg/dL Normal 8.5-10.1 [facility] Comment on above: Performed By: #### B TRUST OFFICER, BMP ####[facility] Jmobbrfpcb4799 [place] [address]Dr. Garima Pulliam Chloride [Moles/Vol] 101 mmol/L Normal 98-107 [facility] Comment on above: Performed By: #### B TRUST OFFICER, BMP ####[facility] Tqbxdvtayr[address] [place], [place] [address]Dr. Chapisrenu Heraclio CO2 [Moles/Vol] 30.7 mmol/L Normal 21.0-32.0 [facility] Comment on above: Performed By: #### B TRUST OFFICER, BMP ####[facility] Dagxxzlimy349[address] [place], [place] [address]Dr. Garima Pulliam Creatinine [Mass/Vol] 0.82 mg/dL Normal 0.70-1.30 [facility] Comment on above: Performed By: #### B TRUST OFFICER, BMP ####[facility] Fyuaxnqfhl36[address] [place], [place] [address]Dr. Garima Pulliam EGFR-AF CITIZ[place] >60 Normal >=60 [facility] Comment on above: Performed By: #### B TRUST OFFICER, BMP ####[facility] Nuheeffgyp10[address] [place], [place] [address]Dr. Chapisrenu Heraclio EGFR-NON AF CITIZEN [place] >60 Normal >=60 [facility] Comment on above: Performed By: #### B TRUST OFFICER, BMP ####[facility] Jxvznomzor9[address] [place], [place] [address]Dr. Garima Pulliam Glucose [Mass/Vol] 339 mg/dL Critically high 74-106 T [facility] Comment on above: Performed By: #### B TRUST OFFICER, BMP ####[facility] Dwrlpjxksv9717[address] [place], [place] [address]Dr. Garima Pulliam Potassium [Moles/Vol] 3.6 mmol/L Normal 3.5-5.1 [facility] Comment on above: Performed By: #### B TRUST OFFICER, BMP ####[facility] Lcccuzclem034[address] [place], [place] [address]Dr. Garima Pulliam Sodium [Moles/Vol] 135 mmol/L Critically low 136-145 Th [facility] Comment on above: Performed By: #### B TRUST OFFICER, BMP ####[facility] Rjtxgovysa[address] [place], [place] [address]Dr. Garima Pulliam Urea nitrogen [Mass/Vol] 11.0 mg/dL Normal 7.0-18.0 [facility] Comment on above: Performed By: #### B TRUST OFFICER, BMP ####[facility] Ddwkcyvpwo645[address] [place], [place] [address]Dr. Garima Pulliam Urea nitrogen/Creatinine [Mass ratio] 13.4 mg/mg Normal [facility] Comment on above: Performed By: #### B TRUST OFFICER, BMP ####[facility] Ycziudqwqh027[address] [place], [place] [address]Dr. Garima Pulliam US VERONICA DOP LEG BILon 023 US VERONICA DOP LEG BENOIT Normal [facility] BNPon 03-18-2023 Natriuretic peptide B (Bld) [Mass/Vol] 226.0 pg/mL Normal <=900.0 [facility] Comment on above: Performed By: #### B TRUST OFFICER, BMP ####[facility] Uuujxflddf6970[address] [place], [place] [address]Dr. Garima Pulliam CBC AUTO DIFFon 03-18-2023 BASO # 0.0 103/ul Normal 0.0-0.1 [facility] Comment on above: Performed By: #### C BC ####[facility] Pzwykalpfr[address] [place], [place] [address]Dr. Garima Heraclio Basophils/100 WBC (Bld) 0.2 % Normal 0.2-2.0 [facility] Comment on above: Performed By: #### C BC ####[facility] Lbojrvnqqc30[address] [place], [place] [address]Dr. Garima Pulliam EO # 0.3 103/ul Normal 0.0-0.7 [facility] Comment on above: Performed By: #### C BC ####[facility] Ogdvfvncpq644[address] [place], [place] [address]Dr. Garima Heraclio Eosinophils/100 WBC (Bld) 2.5 % Normal 0.9-7.0 [facility] Comment on above: Performed By: #### C BC ####[facility] Dyspcmzxnv3298[address] [place], [place] [address]Dr. Garima Heraclio Erythrocyte distribution width (RBC) [Ratio] 13.2 % Normal 11.0-15.0 [facility] Comment on above: Performed By: #### C BC ####[facility] Rpnzgjdker2670 [place] [address]DrAdalberto Pulliam Hematocrit (Bld) [Volume fraction] 45.8 % Normal 42.0-54.0 [facility] Comment on above: Performed By: #### C BC ####[facility] Mauhxjupgn3013 [place] [address]DrAdalberto Pulliam Hemoglobin (Bld) [Mass/Vol] 15.3 g/dL Normal 14.0-18.0 [facility] Comment on above: Performed By: #### C BC ####[facility] Yoapjsyfzu05[address] [place], [place] [address]DrAdalberto Pulliam IG # 0.02 10e3/ul Normal 0.00-0.03 [facility] Comment on above: Performed By: #### C BC ####[facility] Kspfupywec[address] [place], [place] [address]DrAdalberto Pulliam IG % 0.2 % Normal 0.0-0.5 [facility] Comment on above: Performed By: #### C BC ####[facility] Tftnafpiqz63[address] [place], [place] [address]DrAdalberto Pulliam LYMPH # 1.8 103/ul Normal 1.2-3.8 [facility] Comment on above: Performed By: #### C BC ####[facility] Dowiypruqx116[address] [place], [place] [address]DrAdalberto Pulliam Lymphocytes/100 WBC (Bld) 18.3 % Critically low 20.5-60.0 [facility] Comment on above: Performed By: #### C BC ####[facility] Mkufxusbvy[address] [place], [place] [address]DrAdalberto Pulliam MANUAL DIFF REQ NO Normal [facility] Comment on above: Performed By: #### C BC ####[facility] Aysscnqnno3367 [place] [address]DrAdalberto Pulliam MCH (RBC) [Entitic mass] 30.5 pg Normal 25.9-34.0 [facility] Comment on above: Performed By: #### C BC ####[facility] Dvkkbsyrsx1112 [place] [address]DrAdalberto Pulliam MCHC (RBC) [Mass/Vol] 33.4 g/dL Normal 29.9-35.2 [facility] Comment on above: Performed By: #### C BC ####[facility] Ekwbwtrzgm0457 [place] [address]DrAdalberto Pulliam MCV (RBC) [Entitic vol] 91.2 fL Normal 80.0-94.0 [facility] Comment on above: Performed By: #### C BC ####[facility] Salyydqiow[address] [place], [place] [address]DrAdalberto Pulliam MONO # 0.8 103/ul Normal 0.3-0.8 [facility] Comment on above: Performed By: #### C BC ####[facility] Ewxouriphv16[address] [place], [place] [address]DrAdalberto Pulliam Monocytes/100 WBC (Bld) 7.6 % Normal 1.7-12.0 [facility] Comment on above: Performed By: #### C BC ####[facility] Hvucfvvfvd8[address] [place], [place] [address]DrAdalberto Pulliam NEUT # 7.0 103/ul Critically high 1.4-6.5 [facility] Comment on above: Performed By: #### C BC ####[facility] Ktcwikfftg19[address] [place], [place] [address]DrAdalberto Pulliam Neutrophils/100 WBC (Bld) 71.2 % Normal 43.0-75.0 [facility] Comment on above: Performed By: #### C BC ####[facility] Vdnfperrrt[address] [place], [place] [address]DrAdalberto Pulliam Platelet mean volume (Bld) [Entitic vol] 8.9 fL Critically low 9.5-13.5 [facility] Comment on above: Performed By: #### C BC ####[facility] Gjrmoggvas0[address] [place], [place] [address]DrAdalberto Pulliam PLT 217 103/ul Normal 150-450 [facility] Comment on above: Performed By: #### C BC ####[facility] Ihrncwrgkw3246 [place] [address]Dr. Garima Heraclio RBC 5.02 106/ul Normal 4.70-6.10 [facility] Comment on above: Performed By: #### C BC ####[facility] Xwmxmjjjrw85[address] [place], [place] [address]Dr. Garima Pulliam WBC 9.8 103/ul Normal 4.0-11.0 [facility] Comment on above: Performed By: #### C BC ####[facility] Eewmxcwmtb000[address] [place], [place] [address]Dr. Garima Heraclio CRPon 03-18-2023 CRP 0.1 mg/dL Normal <=1.0 [facility] Comment on above: Performed By: #### C RP ####[facility] Ylgzoovlol44[address] [place], [place] [address]Dr. Garima Heraclio PROF CHEM 8 (BAS METB)on Anion gap [Moles/Vol] 10.4 mmol/L Normal [facility] Comment on above: Performed By: #### B TRUST OFFICER, BMP ####[facility] Livsoeiwzd17[address] [place], [place] [address]Dr. Garima Heraclio Calcium [Mass/Vol] 8.8 mg/dL Normal 8.5-10.1 [facility] Comment on above: Performed By: #### B TRUST OFFICER, BMP ####[facility] Sadpdazddo[address] [place], [place] [address]Dr. Garima Heraclio Chloride [Moles/Vol] 97 mmol/L Critically low 98-107 [facility] Comment on above: Performed By: #### B TRUST OFFICER, BMP ####[facility] Pcqeygrlsd[address] [place], [place] [address]Dr. Garima Pulliam CO2 [Moles/Vol] 31.2 mmol/L Normal 21.0-32.0 [facility] Comment on above: Performed By: #### B TRUST OFFICER, BMP ####[facility] Odxmzqvuly[address] [place], [place] [address]Dr. Garima Pulliam Creatinine [Mass/Vol] 0.91 mg/dL Normal 0.70-1.30 [facility] Comment on above: Performed By: #### B TRUST OFFICER, BMP ####[facility] Zdgiwatbaq3967 [place] [address]Dr. Garima Pulliam EGFR-AF CITIZ[place] >60 Normal >=60 [facility] Comment on above: Performed By: #### B TRUST OFFICER, BMP ####[facility] Itdomhcahm3385 [place] [phone]. Garima Pulliam EGFR-NON AF CITIZ[place] OF [place] >60 Normal >=60 [facility] Comment on above: Performed By: #### B TRUST OFFICER, BMP ####[facility] Mkvzgbpagj5181 [place] [address]Dr. Garima Pulliam Glucose [Mass/Vol] 315 mg/dL Critically high 74-106 T [facility] Comment on above: Performed By: #### B TRUST OFFICER, BMP ####[facility] Zifnqdzyow8952 [place] [address]Dr. Garima Pulliam Potassium [Moles/Vol] 3.6 mmol/L Normal 3.5-5.1 [facility] Comment on above: Performed By: #### B TRUST OFFICER, BMP ####[facility] Pylixuvkeg2222 [place] [address]Dr. Garima Pulliam Sodium [Moles/Vol] 135 mmol/L Critically low 136-145 Th [facility] Comment on above: Performed By: #### B TRUST OFFICER, BMP ####[facility] Bymlinolat4155 [place] [address]Dr. Garima Pulliam Urea nitrogen [Mass/Vol] 7.0 mg/dL Normal 7.0-18.0 [facility] Comment on above: Performed By: #### B TRUST OFFICER, BMP ####[facility] Gixnmphuvj4829 [place] [address]Dr. Garima Pulliam Urea nitrogen/Creatinine [Mass ratio] 7.7 mg/mg Normal [facility] Comment on above: Performed By: #### B TRUST OFFICER, BMP ####[facility] Nzatqofayz2587 [place] [address]Dr. Garima Pulliam SED RATE WESTERGRENon 2022 SED RATE 8 mm/hr Normal <=20 [facility] Comment on above: Performed By: #### S EDR ####[facility] Ekfamzyqey[address] [place], [place] [address]Dr. Garima Pulliam BNPon 03-16-2023 Natriuretic peptide B (Bld) [Mass/Vol] 241.0 pg/mL Normal <=900.0 [facility] Comment on above: Performed By: #### B TRUST OFFICER, BMP, HSTROPN ####[facility] Ngqyfionqw97[address] [place], [place] [address]Dr. Garima Heraclio CBC AUTO DIFFon 03-16-2023 BASO # 0.0 103/ul Normal 0.0-0.1 [facility] Comment on above: Performed By: #### C BC ####[facility] Sddbwkqfbw[address] [place], [place] [address]Dr. Chapisrenu Pulliam Basophils/100 WBC (Bld) 0.2 % Normal 0.2-2.0 [facility] Comment on above: Performed By: #### C BC ####[facility] Eavrwhmfgo[address] [place], [place] [address]Dr. Garima Pulliam EO # 0.2 103/ul Normal 0.0-0.7 [facility] Comment on above: Performed By: #### C BC ####[facility] Zyjgzjwvit[address] [place], [place] [address]Dr. Chapisrenu Pulliam Eosinophils/100 WBC (Bld) 2.7 % Normal 0.9-7.0 [facility] Comment on above: Performed By: #### C BC ####[facility] Esuawjahns[address] [place], [place] [address]Dr. Garima Pulliam Erythrocyte distribution width (RBC) [Ratio] 13.1 % Normal 11.0-15.0 [facility] Comment on above: Performed By: #### C BC ####[facility] Ycpahurztg[address] [place], [place] [address]Dr. Garima Pulliam Hematocrit (Bld) [Volume fraction] 41.8 % Critically low 42.0-54.0 [facility] Comment on above: Performed By: #### C BC ####[facility] Woyfkfoebq1599 [place] [address]Dr. Garima Pulliam Hemoglobin (Bld) [Mass/Vol] 14.0 g/dL Normal 14.0-18.0 [facility] Comment on above: Performed By: #### C BC ####[facility] Ldubhptipi10[address] [place] [address]Dr. Garima Pulliam IG # 0.03 10e3/ul Normal 0.00-0.03 [facility] Comment on above: Performed By: #### C BC ####[facility] Gngxumdbxd4559 [place] [address]Dr. Garima Pulliam IG % 0.3 % Normal 0.0-0.5 [facility] Comment on above: Performed By: #### C BC ####[facility] Mxizoyxppn[address] [place], [place] [address]Dr. Chapisrenu Pulliam LYMPH # 2.1 103/ul Normal 1.2-3.8 [facility] Comment on above: Performed By: #### C BC ####[facility] Expszrgtka54[address] [place], [place] [address]Dr. Chapisrenu Pulliam Lymphocytes/100 WBC (Bld) 24.2 % Normal 20.5-60.0 [facility] Comment on above: Performed By: #### C BC ####[facility] Edgmuvpigm14[address] [place] [address]Dr. Garima Pulliam MANUAL DIFF REQ NO Normal [facility] Comment on above: Performed By: #### C BC ####[facility] Obnwyeukhr3252 [place] [address]Dr. Garima Pulliam MCH (RBC) [Entitic mass] 30.2 pg Normal 25.9-34.0 [facility] Comment on above: Performed By: #### C BC ####[facility] Lmjuzbysof[address] [place] [address]Dr. Garima Pulliam MCHC (RBC) [Mass/Vol] 33.5 g/dL Normal 29.9-35.2 [facility] Comment on above: Performed By: #### C BC ####[facility] Ksgtpfphmu7263 [place] [phone]. Garima Pulliam MCV (RBC) [Entitic vol] 90.1 fL Normal 80.0-94.0 [facility] Comment on above: Performed By: #### C BC ####[facility] Hwfcqtxwmn6227 [place] [id number]. Garima Pulliam MONO # 0.6 103/ul Normal 0.3-0.8 [facility] Comment on above: Performed By: #### C BC ####[facility] Stkozitnwq6025 [place] [address]Dr. Garima Heraclio Monocytes/100 WBC (Bld) 7.4 % Normal 1.7-12.0 [facility] Comment on above: Performed By: #### C BC ####[facility] Hmbcquzswq[address] [place], [place] [address]Dr. Garima Pulliam NEUT # 5.6 103/ul Normal 1.4-6.5 [facility] Comment on above: Performed By: #### C BC ####[facility] [address]muzvrmpuv[address] [place], [place] [address]Dr. Garima Heraclio Neutrophils/100 WBC (Bld) 65.2 % Normal 43.0-75.0 [facility] Comment on above: Performed By: #### C BC ####[facility] Ibdpahxdai6614 [place] [phone]. Garima Heraclio Platelet mean volume (Bld) [Entitic vol] 8.7 fL Critically low 9.5-13.5 [facility] Comment on above: Performed By: #### C BC ####[facility] Qprj[address]xcx[address] [place], [place] [address]Dr. Garima Heraclio PLT 195 103/ul Normal 150-450 [facility] Comment on above: Performed By: #### C BC ####[facility] Foyudgfcid4846 [place] [phone]. Garima Pulliam RBC 4.64 106/ul Critically low 4.70-6.10 [facility] Comment on above: Performed By: #### C BC ####[facility] Kfydxekfzu6708 [place] [address]Dr. Garima Pulliam WBC 8.6 103/ul Normal 4.0-11.0 [facility] Comment on above: Performed By: #### C BC ####[facility] Euwuwdsppo34[address] [place] [address]Dr. Garima Pulliam PROF CHEM 8 (BAS METB)on Anion gap [Moles/Vol] 6.7 mmol/L Normal [facility] Comment on above: Performed By: #### B TRUST OFFICER, BMP, HSTROPN ####[facility] Cfaunakwah64[address] [place] [address]Dr. Garima Pulliam Calcium [Mass/Vol] 8.8 mg/dL Normal 8.5-10.1 [facility] Comment on above: Performed By: #### B TRUST OFFICER, BMP, HSTROPN ####[facility] Sm[address] [place], [place] [address]Dr. Garima Pulliam Chloride [Moles/Vol] 106 mmol/L Normal 98-107 [facility] Comment on above: Performed By: #### B TRUST OFFICER, BMP, HSTROPN ####[facility] Tctalqlolw[address] [place], [place] [address]Dr. Garima Pulliam CO2 [Moles/Vol] 31.4 mmol/L Normal 21.0-32.0 [facility] Comment on above: Performed By: #### B TRUST OFFICER, BMP, HSTROPN ####[facility] Tamb[address]ur[address] [place], [place] [address]Dr. Garima Pulliam Creatinine [Mass/Vol] 0.75 mg/dL Normal 0.70-1.30 [facility] Comment on above: Performed By: #### B TRUST OFFICER, BMP, HSTROPN ####[facility] [address] [place] [address]Dr. Garima Pulliam EGFR-AF CITIZEN OF [place] >60 Normal >=60 [facility] Comment on above: Performed By: #### B TRUST OFFICER, BMP, HSTROPN ####[facility] Bnhpqagsly[address] [place] [address]Dr. Garima Pulliam EGFR-NON AF CITIZEN OF [place] >60 Normal >=60 [facility] Comment on above: Performed By: #### B TRUST OFFICER, BMP, HSTROPN ####[facility] Wrukfysyfd[address] [place] [address]Dr. Garima Pulliam Glucose [Mass/Vol] 161 mg/dL Critically high 74-106 [facility] Comment on above: Performed By: #### B TRUST OFFICER, BMP, HSTROPN ####[facility] Rcixrlftwk75[address] [place] [address]Dr. Garima Pulliam Potassium [Moles/Vol] 4.1 mmol/L Normal 3.5-5.1 [facility] Comment on above: Performed By: #### B TRUST OFFICER, BMP, HSTROPN ####[facility] Ktcgwtncum[address] [place] [address]Dr. Garima Pulliam Sodium [Moles/Vol] 140 mmol/L Normal 136-145 [facility] Comment on above: Performed By: #### B TRUST OFFICER, BMP, HSTROPN ####[facility] Jehsxlnrrh40[address] [place] [address]Dr. Garima Pulliam Urea nitrogen [Mass/Vol] 7.0 mg/dL Normal 7.0-18.0 [facility] Comment on above: Performed By: #### B TRUST OFFICER, BMP, HSTROPN ####[facility] Urgmnzflud[address] [place] [address]Dr. Garima Pulliam Urea nitrogen/Creatinine [Mass ratio] 9.3 mg/mg Normal [facility] Comment on above: Performed By: #### B TRUST OFFICER, BMP, HSTROPN ####[facility] Zwmenkjoph[address] [place] [address]Dr. Garima Pulliam TROPONIN, HIGH SENSITIVITYon 03-16-2023 HSTROP 9.7 pg/mL Normal 4.0-76.1 [facility] Comment on above: Result Comment: CUT- OFF POINTS HAVE BEEN ESTABLISHED BASED ON THE FOURTH UNIVERSAL DEFINITIONS OF MYOCARDIALINFARCTION. THE UPPER REFERENCE LIMIT (URL) OF TROPONIN, DEFINED THE 99TH PERCENTILE OFcTnI DISTRIBUTION IN A REFERENCE POPULATION, HAS BEEN CONFIRMED THE DECISION THRESHOLDFOR ND DIAGNOSIS. Performed By: #### B TRUST OFFICER, BMP, HSTROPN ####[facility] Poqwnsjsed[address] [place] [address]Dr. Garima Pulliam XR CHEST 1 Von 03-16-2023 XR CHEST 1 V Normal [facility] BNPon 03-06-2023 Natriuretic peptide B (Bld) [Mass/Vol] 111.0 pg/mL Normal <=900.0 [facility] Comment on above: Performed By: #### C MP, BNP, CK ####[facility] Kbvdgovvia[address] [place] [address]Dr. Chapisrenu Pulliam CBC AUTO DIFFon 03-06-2023 BASO # 0.0 103/ul Normal 0.0-0.1 [facility] Comment on above: Performed By: #### C BC ####[facility] Cwnvxujiej[address] [place], [place] [address]Dr. Garima Pulliam Basophils/100 WBC (Bld) 0.2 % Normal 0.2-2.0 [facility] Comment on above: Performed By: #### C BC ####[facility] Kchmgvcxnn[address] [place], [place] [address]Dr. Garima Pulliam EO # 0.3 103/ul Normal 0.0-0.7 [facility] Comment on above: Performed By: #### C BC ####[facility] Kyiclocfeh[address] [place], [place] [address]Dr. Garima Pulliam Eosinophils/100 WBC (Bld) 3.5 % Normal 0.9-7.0 [facility] Comment on above: Performed By: #### C BC ####[facility] Sfupbnvenl[address] [place], [place] [address]Dr. Garima Pulliam Erythrocyte distribution width (RBC) [Ratio] 13.3 % Normal 11.0-15.0 [facility] Comment on above: Performed By: #### C BC ####[facility] Qkruxrnfjy[address] [place], [place] [address]Dr. Garima Pulliam Hematocrit (Bld) [Volume fraction] 43.7 % Normal 42.0-54.0 [facility] Comment on above: Performed By: #### C BC ####[facility] Srfmfqprkw[address] [place] [address]Dr. Garima Pulliam Hemoglobin (Bld) [Mass/Vol] 14.7 g/dL Normal 14.0-18.0 [facility] Comment on above: Performed By: #### C BC ####[facility] Huikrynokz9367 [place] [address]Dr. Chapisrenu Heraclio IG # 0.03 10e3/ul Normal 0.00-0.03 [facility] Comment on above: Performed By: #### C BC ####[facility] Pdfccnznsl[address] [place], [place] [address]Dr. Garima Pulliam IG % 0.4 % Normal 0.0-0.5 [facility] Comment on above: Performed By: #### C BC ####[facility] Mjxioevzew[address] [place], [place] [address]Dr. Garima Pulliam LYMPH # 2.0 103/ul Normal 1.2-3.8 [facility] Comment on above: Performed By: #### C BC ####[facility] Infxlaksgr[address] [place], [place] [address]DrAdalberto Pulliam Lymphocytes/100 WBC (Bld) 23.7 % Normal 20.5-60.0 [facility] Comment on above: Performed By: #### C BC ####[facility] Lpqascmhcx65[address] [place] [address]Dr. Garima Pulliam MANUAL DIFF REQ NO Normal [facility] Comment on above: Performed By: #### C BC ####[facility] Xysgzoyhct8907 [place] [phone] Pulliam MCH (RBC) [Entitic mass] 30.1 pg Normal 25.9-34.0 [facility] Comment on above: Performed By: #### C BC ####[facility] Ardvdpepts6961 [place] [phone]. Garima Pulliam MCHC (RBC) [Mass/Vol] 33.6 g/dL Normal 29.9-35.2 [facility] Comment on above: Performed By: #### C BC ####[facility] Vvjivjidla6995 [place] [address]Dr. Garima Heraclio MCV (RBC) [Entitic vol] 89.4 fL Normal 80.0-94.0 [facility] Comment on above: Performed By: #### C BC ####[facility] Fbwdlwnvkf6369 [place] [address]Dr. Garima Pulliam MONO # 0.8 103/ul Normal 0.3-0.8 [facility] Comment on above: Performed By: #### C BC ####[facility] Kyemxwtjzk7167 [place] [address]Dr. Garima Pulliam Monocytes/100 WBC (Bld) 9.0 % Normal 1.7-12.0 [facility] Comment on above: Performed By: #### C BC ####[facility] Bhghsqtzbj[address] [place], [place] [address]Dr. Garima Pulliam NEUT # 5.4 103/ul Normal 1.4-6.5 [facility] Comment on above: Performed By: #### C BC ####[facility] Fvkevawcib[address] [place], [place] [address]Dr. Garima Pulliam Neutrophils/100 WBC (Bld) 63.2 % Normal 43.0-75.0 [facility] Comment on above: Performed By: #### C BC ####[facility] Sryyegvfcw[address] [place], [place] [address]Dr. Garima Pulliam Platelet mean volume (Bld) [Entitic vol] 9.0 fL Critically low 9.5-13.5 [facility] Comment on above: Performed By: #### C BC ####[facility] Npezptkhrn[address] [place], [place] [address]Dr. Garima Pulliam PLT 218 103/ul Normal 150-450 [facility] Comment on above: Performed By: #### C BC ####[facility] Hawcjlwurd[address] [place] [phone]. Garima Pulliam RBC 4.89 106/ul Normal 4.70-6.10 [facility] Comment on above: Performed By: #### C BC ####[facility] Xlyniidgjz7040 [place] [address]Dr. Garima Pulliam WBC 8.5 103/ul Normal 4.0-11.0 [facility] Comment on above: Performed By: #### C BC ####[facility] Fqftmsdmes[address] [place] [address]Dr. Garima Pulliam CPKon 03-06-2023 CK [Catalytic activity/Vol] 191 U/L Normal 39-308 [facility] Comment on above: Performed By: #### C MP, BNP, CK ####[facility] Riktchoxyy9349 [place] [address]Dr. Garima Pulliam PROF 14(COMP METB)on 023 Albumin [Mass/Vol] 3.6 g/dL Normal 3.4-5.0 [facility] Comment on above: Performed By: #### C MP, BNP, CK ####[facility] Ubmttbacsk4830 [place] [address]Dr. Garima Pulliam Albumin/Globulin [Mass ratio] 1.2 {ratio} Normal [facility] Comment on above: Performed By: #### C MP, BNP, CK ####[facility] Zqqkjsdads[address] [place] [address]Dr. Garima Pulliam ALP [Catalytic activity/Vol] 91 U/L Normal 46-116 [facility] Comment on above: Performed By: #### C MP, BNP, CK ####[facility] Ffqpbizeke3573 [place] [address]Dr. Garima Pulliam ALT [Catalytic activity/Vol] 33 U/L Normal 16-63 [facility] Comment on above: Performed By: #### C MP, BNP, CK ####[facility] Xzbwnsqbqt9281 [place] [address]Dr. Garima Pulliam Anion gap [Moles/Vol] 10.3 mmol/L Normal [facility] Comment on above: Performed By: #### C MP, BNP, CK ####[facility] Wqljszivwa7515 [place] [address]Dr. Garima Pulliam AST [Catalytic activity/Vol] 17 U/L Normal 15-37 [facility] Comment on above: Performed By: #### C MP, BNP, CK ####[facility] Khkvbdvzzd6675 [place] [address]Dr. Garima Pulliam Bilirubin [Mass/Vol] 0.4 mg/dL Normal 0.2-1.0 [facility] Comment on above: Performed By: #### C MP, BNP, CK ####[facility] Jvmnlanqfp4628 [place] [address]Dr. Garima Pulliam Calcium [Mass/Vol] 9.1 mg/dL Normal 8.5-10.1 [facility] Comment on above: Performed By: #### C MP, BNP, CK ####[facility] Rbrpqfoaac8636 [place] [address]Dr. Garima Pulliam Chloride [Moles/Vol] 102 mmol/L Normal 98-107 [facility] Comment on above: Performed By: #### C MP, BNP, CK ####[facility] Czjlajdbic7516 [place] [address]Dr. Garima Pulliam CO2 [Moles/Vol] 29.7 mmol/L Normal 21.0-32.0 [facility] Comment on above: Performed By: #### C MP, BNP, CK ####[facility] Gxkdflsstt1219 [place] [address]Dr. Garima Pulliam Creatinine [Mass/Vol] 0.79 mg/dL Normal 0.70-1.30 [facility] Comment on above: Performed By: #### C MP, BNP, CK ####[facility] Rfhxbuqfdj7283 [place] [address]Dr. Garima Pulliam EGFR-AF [place]IZ[place] >60 Normal >=60 [facility] Comment on above: Performed By: #### C MP, BNP, CK ####[facility] Rhwooaxegn[address] [place] [address]Dr. Garima Pulliam EGFR-NON AF CITIZ[place] >60 Normal >=60 [facility] Comment on above: Performed By: #### C MP, BNP, CK ####[facility] Wtkzzfroib7714 [place] [address]Dr. Garima Pulliam Globulin (S) [Mass/Vol] 3.0 g/dL Normal [facility] Comment on above: Performed By: #### C MP, BNP, CK ####[facility] Rpecgsjabb6580 [place] [address]Dr. Garima Pulliam Glucose [Mass/Vol] 202 mg/dL Critically high 74-[address] [facility] Comment on above: Performed By: #### C MP, BNP, CK ####[facility] Iwcaestend5241 [place] [address]Dr. Garima Pulliam Potassium [Moles/Vol] 4.0 mmol/L Normal 3.5-5.1 [facility] Comment on above: Performed By: #### C MP, BNP, CK ####[facility] Utywaibnse7588 [place] [address]Dr. Garima Pulliam Protein [Mass/Vol] 6.6 g/dL Normal 6.4-8.2 [facility] Comment on above: Performed By: #### C MP, BNP, CK ####[facility] Dldgucayud[address] [place], [place] [address]Dr. Garima Pulliam Sodium [Moles/Vol] 138 mmol/L Normal 136-145 [facility] Comment on above: Performed By: #### C MP, BNP, CK ####[facility] Uhyfhqcaet8[address] [place], [place] [address]Dr. Garima Pulliam Urea nitrogen [Mass/Vol] 10.0 mg/dL Normal 7.0-18.0 [facility] Comment on above: Performed By: #### C MP, BNP, CK ####[facility] Ndyaiyxpcg2071 [place] [address]Dr. Garima Pulliam Urea nitrogen/Creatinine [Mass ratio] 12.7 mg/mg Normal [facility] Comment on above: Performed By: #### C MP, BNP, CK ####[facility] Hitptbvfhm0111 [place] [address]Dr. Garima Pulliam US VERONICA DOP LEG BILon 023 US VERONICA DOP LEG BENOIT Normal [facility] CBC AUTO DIFFon 01-13-2023 BASO # 0.0 103/ul Normal 0.0-0.1 [facility] Comment on above: Performed By: #### C BC ####[facility] Djnppknqck3565 [place] [phone]. Chapisrenu Pulliam Basophils/100 WBC (Bld) 0.0 % Critically low 0.2-2.0 [facility] Comment on above: Performed By: #### C BC ####[facility] Lqznvsfmal2960 [place] [address]Dr. Garima Pulliam EO # 0.0 103/ul Normal 0.0-0.7 [facility] Comment on above: Performed By: #### C BC ####[facility] Kqqygdsgiq[address] [place], [place] [address]Dr. Garima Pulliam Eosinophils/100 WBC (Bld) 0.0 % Critically low 0.9-7.0 [facility] Comment on above: Performed By: #### C BC ####[facility] Ewcnxcoqck8282 [place] [address]Dr. Garima Pulliam Erythrocyte distribution width (RBC) [Ratio] 13.2 % Normal 11.0-15.0 [facility] Comment on above: Performed By: #### C BC ####[facility] Xxlwtrvzcb[address] [place], [place] [address]Dr. Garima Pulliam Hematocrit (Bld) [Volume fraction] 46.7 % Normal 42.0-54.0 [facility] Comment on above: Performed By: #### C BC ####[facility] Jbsetqvsvr[address] [place], [place] [address]Dr. Garima Pulliam Hemoglobin (Bld) [Mass/Vol] 15.6 g/dL Normal 14.0-18.0 [facility] Comment on above: Performed By: #### C BC ####[facility] Duqdltuchn60[address] [place], [place] [address]Dr. Garima Pulliam IG # 0.01 10e3/ul Normal 0.00-0.03 [facility] Comment on above: Performed By: #### C BC ####[facility] Ogdjuwydbe4511 [place] [phone]. Garima Pulliam IG % 0.2 % Normal 0.0-0.5 [facility] Comment on above: Performed By: #### C BC ####[facility] Knswuujext6036 [place] [phone]. Garima Pulliam LYMPH # 0.8 103/ul Critically low 1.2-3.8 [facility] Comment on above: Performed By: #### C BC ####[facility] Rpslqqnudh0784 [place] [phone]. Garima Pulliam Lymphocytes/100 WBC (Bld) 12.7 % Critically low 20.5-60.0 [facility] Comment on above: Performed By: #### C BC ####[facility] Migpnyibzh6852 [place] [address]Dr. Garima Pulliam MANUAL DIFF REQ NO Normal [facility] Comment on above: Performed By: #### C BC ####[facility] Uczlkygddn3515 [place] [phone]. Gairma Pulliam MCH (RBC) [Entitic mass] 30.2 pg Normal 25.9-34.0 [facility] Comment on above: Performed By: #### C BC ####[facility] Sdnlhxuuts4094 [place] [phone]. Garima Pulliam MCHC (RBC) [Mass/Vol] 33.4 g/dL Normal 29.9-35.2 [facility] Comment on above: Performed By: #### C BC ####[facility] Mrrmgjgwjt2712 [place] [phone]. Garima Pulliam MCV (RBC) [Entitic vol] 90.3 fL Normal 80.0-94.0 [facility] Comment on above: Performed By: #### C BC ####[facility] Pzfankxwrs3678 [place] [phone]. Garima Heraclio MONO # 0.1 103/ul Critically low 0.3-0.8 [facility] Comment on above: Performed By: #### C BC ####[facility] Shqogsitit9425 [place] [phone]. Garima Pulliam Monocytes/100 WBC (Bld) 0.9 % Critically low 1.7-12.0 [facility] Comment on above: Performed By: #### C BC ####[facility] Mxzyhlmqid0570 [place] [phone]. Garima Pulliam NEUT # 5.6 103/ul Normal 1.4-6.5 [facility] Comment on above: Performed By: #### C BC ####[facility] Tnqcfujspn6631 [place] [phone]. Garima Pulliam Neutrophils/100 WBC (Bld) 86.2 % Critically high 43.0-75.0 [facility] Comment on above: Performed By: #### C BC ####[facility] Sffkxnpwhd4414 [place] [address]Dr. Garima Pulliam Platelet mean volume (Bld) [Entitic vol] 9.1 fL Critically low 9.5-13.5 [facility] Comment on above: Performed By: #### C BC ####[facility] Kuxintxvfk[address] [place], [place] [address]Dr. Garima Pulliam PLT 169 103/ul Normal 150-450 [facility] Comment on above: Performed By: #### C BC ####[facility] Dlqzxdfdlk[address] [place], [place] [address]Dr. Garima Pulliam RBC 5.17 106/ul Normal 4.70-6.10 [facility] Comment on above: Performed By: #### C BC ####[facility] Zzaykkqxnz[address] [place], [place] [address]Dr. Garima Pulliam WBC 6.5 103/ul Normal 4.0-11.0 [facility] Comment on above: Performed By: #### C BC ####[facility] Yapomlwyuy[address] [place], [place] [address]Dr. Garima Pulliam D-DIMERon 01-13-2023 D-DIMER 0.41 mg/L FEU Normal <=0.59 [facility] Comment on above: Performed By: #### D DIM ####[facility] Paayugstps[address] [place] [address]Dr. Garima Pulliam D-DIMER COMMENTS SEE BELOW Normal [facility] Comment on above: Result Comment: Incr [...] Performed By: #### D DIM ####[facility] Topwchfsrp[address] [place], [place] [address]Dr. Garima Pulliam PROF 14(COMP METB)on 023 Albumin [Mass/Vol] 3.4 g/dL Normal 3.4-5.0 [facility] Comment on above: Performed By: #### C MP ####[facility] Rtpuhpoooz[address] [place], [place] [address]Dr. Garima Pulliam Albumin/Globulin [Mass ratio] 1.3 {ratio} Normal [facility] Comment on above: Performed By: #### C MP ####[facility] Swdvzfcutw[address] [place], [place] [address]Dr. Garima Pulliam ALP [Catalytic activity/Vol] 83 U/L Normal 46-116 [facility] Comment on above: Performed By: #### C MP ####[facility] Eyzcpelsei[address] [place], [place] [address]Dr. Garima Pulliam ALT [Catalytic activity/Vol] 25 U/L Normal 16-63 [facility] Comment on above: Performed By: #### C MP ####[facility] Itsqnfdmxl5067 [place] [address]Dr. Garima Pulliam Anion gap [Moles/Vol] 14.5 mmol/L Normal [facility] Comment on above: Performed By: #### C MP ####[facility] Jgjrcxujkg7[address] [place], [place] [address]Dr. Garima Pulliam AST [Catalytic activity/Vol] 19 U/L Normal 15-37 [facility] Comment on above: Performed By: #### C MP ####[facility] Lzfoqwxzxd88[address] [place], [place] [address]Dr. Garima Pulliam Bilirubin [Mass/Vol] 0.4 mg/dL Normal 0.2-1.0 [facility] Comment on above: Performed By: #### C MP ####[facility] Uqokydrumv[address] [place], [place] [address]Dr. Garima Pulliam Calcium [Mass/Vol] 8.7 mg/dL Normal 8.5-10.1 [facility] Comment on above: Performed By: #### C MP ####[facility] Mrgctjpcyk[address] [place], [place] [address]Dr. Garima Pulliam Chloride [Moles/Vol] 104 mmol/L Normal 98-107 [facility] Comment on above: Performed By: #### C MP ####[facility] Vkrgppxqeq[address] [place], [place] [address]Dr. Garima Pulliam CO2 [Moles/Vol] 24.5 mmol/L Normal 21.0-32.0 [facility] Comment on above: Performed By: #### C MP ####[facility] Lplvohjnze38[address] [place], [place] [address]Dr. Garima Pulliam Creatinine [Mass/Vol] 0.70 mg/dL Normal 0.70-1.30 [facility] Comment on above: Performed By: #### C MP ####[facility] Eekreywdhp85[address] [place], [place] [address]Dr. Garima Heraclio EGFR-AF CITIZ[place] >60 Normal >=60 [facility] Comment on above: Performed By: #### C MP ####[facility] Ddpxvnjxay[address] [place], [place] [address]Dr. Chapisrenu Heraclio EGFR-NON AF CITIZEN OF [place] >60 Normal >=60 [facility] Comment on above: Performed By: #### C MP ####[facility] Lotwmfsvpm96[address] [place], [place] [address]Dr. Chapisrenu Pulliam Globulin (S) [Mass/Vol] 2.6 g/dL Normal [facility] Comment on above: Performed By: #### C MP ####[facility] Tjtdfivxeo8943 [place] [address]Dr. Garima Pulliam Glucose [Mass/Vol] 196 mg/dL Critically high 74-[address] [facility] Comment on above: Performed By: #### C MP ####[facility] Rtvircaxcb6601 [place] [address]Dr. Garima Pulliam Potassium [Moles/Vol] 4.0 mmol/L Normal 3.5-5.1 [facility] Comment on above: Performed By: #### C MP ####[facility] Gfilqlggkq8517 [place] [address]Dr. Garima Pulliam Protein [Mass/Vol] 6.0 g/dL Critically low 6.4-8.2 [facility] Comment on above: Performed By: #### C MP ####[facility] Byspwcfras[address] [place], [place] [address]Dr. Garima Pulliam Sodium [Moles/Vol] 139 mmol/L Normal 136-145 [facility] Comment on above: Performed By: #### C MP ####[facility] Wkvfxwbxjw[address] [place], [place] [address]Dr. Garima Pulliam Urea nitrogen [Mass/Vol] 7.0 mg/dL Normal 7.0-18.0 [facility] Comment on above: Performed By: #### C MP ####[facility] Hojzdwukmx8[address] [place], [place] [address]Dr. Garima Heraclio Urea nitrogen/Creatinine [Mass ratio] 10.0 mg/mg Normal [facility] Comment on above: Performed By: #### C MP ####[facility] Phjaxovnju23[address] [place], [place] [address]Dr. Garima Heraclio BNPon 01-12-2023 Natriuretic peptide B (Bld) [Mass/Vol] 141.0 pg/mL Normal <=900.0 [facility] Comment on above: Performed By: #### C MP, BNP, HSTROPN ####[facility] Tbtfhtkvfk50[address] [place], [place] [address]Dr. Garima Heraclio CBC AUTO DIFFon 01-12-2023 BASO # 0.0 103/ul Normal 0.0-0.1 [facility] Comment on above: Performed By: #### C BC ####[facility] Crctpgscmg4126 [place] [phone]. Garima Heraclio Basophils/100 WBC (Bld) 0.2 % Normal 0.2-2.0 [facility] Comment on above: Performed By: #### C BC ####[facility] Elyqpsddhr4368 [place] [address]Dr. Garima Heraclio EO # 0.2 103/ul Normal 0.0-0.7 [facility] Comment on above: Performed By: #### C BC ####[facility] Rknphkcpmy1812 [place] [address]Dr. Garima Heraclio Eosinophils/100 WBC (Bld) 2.7 % Normal 0.9-7.0 [facility] Comment on above: Performed By: #### C BC ####[facility] Ouyaacpozh[address] [place], [place] [address]Dr. Garima Pulliam Erythrocyte distribution width (RBC) [Ratio] 13.3 % Normal 11.0-15.0 [facility] Comment on above: Performed By: #### C BC ####[facility] Qeeqjuvoou[address] [place], [place] [address]Dr. Garima Pulliam Hematocrit (Bld) [Volume fraction] 42.3 % Normal 42.0-54.0 [facility] Comment on above: Performed By: #### C BC ####[facility] Xetmktxsff[address] [place], [place] [address]Dr. Garima Pulliam Hemoglobin (Bld) [Mass/Vol] 14.3 g/dL Normal 14.0-18.0 [facility] Comment on above: Performed By: #### C BC ####[facility] Jwlslaetrm[address] [place], [place] [address]Dr. Garima Pulliam IG # 0.02 10e3/ul Normal 0.00-0.03 [facility] Comment on above: Performed By: #### C BC ####[facility] Bhvnfdleyx3008 [place] [id number]. Garima Pulliam IG % 0.2 % Normal 0.0-0.5 [facility] Comment on above: Performed By: #### C BC ####[facility] Sfudtxmeel6088 [place] [phone]. Garima Pulliam LYMPH # 2.6 103/ul Normal 1.2-3.8 [facility] Comment on above: Performed By: #### C BC ####[facility] Izodtrustv5182 [place] [phone]. Garima Heraclio Lymphocytes/100 WBC (Bld) 29.6 % Normal 20.5-60.0 [facility] Comment on above: Performed By: #### C BC ####[facility] Jepyekopqa9110 [place] [address]Dr. Garima Heraclio MANUAL DIFF REQ NO Normal [facility] Comment on above: Performed By: #### C BC ####[facility] Olrfsrpzyi1747 [place] [phone]. Garima Pulliam MCH (RBC) [Entitic mass] 30.2 pg Normal 25.9-34.0 [facility] Comment on above: Performed By: #### C BC ####[facility] Xzgyuhhbwk4779 [place] [address]Dr. Garima Pulliam MCHC (RBC) [Mass/Vol] 33.8 g/dL Normal 29.9-35.2 [facility] Comment on above: Performed By: #### C BC ####[facility] Samzewdgsv8073 [place] [phone]. Garima Pulliam MCV (RBC) [Entitic vol] 89.2 fL Normal 80.0-94.0 [facility] Comment on above: Performed By: #### C BC ####[facility] Ucrhrclrfy[address] [place], [place] [address]Dr. Chapisrenu Pulliam MONO # 0.7 103/ul Normal 0.3-0.8 [facility] Comment on above: Performed By: #### C BC ####[facility] Vighxywjyv8005 [place] [phone]. Garima Pulliam Monocytes/100 WBC (Bld) 8.3 % Normal 1.7-12.0 [facility] Comment on above: Performed By: #### C BC ####[facility] [address] [place] [id number]. Garima Pulliam NEUT # 5.1 103/ul Normal 1.4-6.5 [facility] Comment on above: Performed By: #### C BC ####[facility] Prjjvpkupl0860 [place] [id number]. Garima Pulliam Neutrophils/100 WBC (Bld) 59.0 % Normal 43.0-75.0 [facility] Comment on above: Performed By: #### C BC ####[facility] Qhpdalaexx08[address] [place] [address]Dr. Garima Pulliam Platelet mean volume (Bld) [Entitic vol] 8.7 fL Critically low 9.5-13.5 [facility] Comment on above: Performed By: #### C BC ####[facility] Oosgdocubk[address] [place] [address]Dr. Garima Pulliam PLT 182 103/ul Normal 150-450 [facility] Comment on above: Performed By: #### C BC ####[facility] Jrxfbxgnqc0295 [place] [id number]. Garima Pulliam RBC 4.74 106/ul Normal 4.70-6.10 [facility] Comment on above: Performed By: #### C BC ####[facility] Ywfn[address] [place], [place] [id number]. Garima Pulliam WBC 8.7 103/ul Normal 4.0-11.0 [facility] Comment on above: Performed By: #### C BC ####[facility] Clbdidctqo[address] [place], [place] [address]Dr. Garima Pulliam Covid-19 PCR (CVDTB)on 12-25 SARS-CoV-2 (COVID-19) RNA MARIE+probe Ql (Unsp spec) Not detected Normal NOT DETECTED [facility] Comment on above: Result Comment: When diagnostic [...] for this test is supported by the Rail [employer] of Health and Human Service's declaration that [...] Performed By: #### C VDTBH ####[facility] Wvtiuymcln45[address] [place] [address]Dr. Garima Pulliam PROF 14(COMP METB)on 023 Albumin [Mass/Vol] 3.6 g/dL Normal 3.4-5.0 [facility] Comment on above: Performed By: #### C MP, BNP, HSTROPN ####[facility] Fixszustsu7[address] [place] [address]Dr. Garima Pulliam Albumin/Globulin [Mass ratio] 1.5 {ratio} Normal [facility] Comment on above: Performed By: #### C MP, BNP, HSTROPN ####[facility] Rdajogwxsn3480 [place] [address]Dr. Garima Pulliam ALP [Catalytic activity/Vol] 79 U/L Normal 46-116 [facility] Comment on above: Performed By: #### C MP, BNP, HSTROPN ####[facility] Gjxmshbuyl17[address] [place] [address]Dr. Garima Pulliam ALT [Catalytic activity/Vol] 27 U/L Normal 16-63 [facility] Comment on above: Performed By: #### C MP, BNP, HSTROPN ####[facility] Xytilujpxe7968 [place] [address]Dr. Garima Pulliam Anion gap [Moles/Vol] 11.7 mmol/L Normal [facility] Comment on above: Performed By: #### C MP, BNP, HSTROPN ####[facility] Clwgrwypxi30[address] [place] [address]Dr. Garima Pulliam AST [Catalytic activity/Vol] 21 U/L Normal 15-37 [facility] Comment on above: Performed By: #### C MP, BNP, HSTROPN ####[facility] Mhzqgfuinu5285 [place] [address]Dr. Garima Pulliam Bilirubin [Mass/Vol] 0.3 mg/dL Normal 0.2-1.0 [facility] Comment on above: Performed By: #### C MP, BNP, HSTROPN ####[facility] Hnnytpjacp2342 [place] [address]Dr. Garima Pulliam Calcium [Mass/Vol] 8.9 mg/dL Normal 8.5-10.1 [facility] Comment on above: Performed By: #### C MP, BNP, HSTROPN ####[facility] Xcnsvtiurp3652 [place] [address]Dr. Garima Pulliam Chloride [Moles/Vol] 107 mmol/L Normal 98-107 [facility] Comment on above: Performed By: #### C MP, BNP, HSTROPN ####[facility] Byrulughnm3697 [place] [address]Dr. Garima Pulliam CO2 [Moles/Vol] 26.0 mmol/L Normal 21.0-32.0 [facility] Comment on above: Performed By: #### C MP, BNP, HSTROPN ####[facility] Cziqgjxlul37[address] [place] [address]Dr. Garima Pulliam Creatinine [Mass/Vol] 0.65 mg/dL Critically low 0.70-1.30 [facility] Comment on above: Performed By: #### C MP, BNP, HSTROPN ####[facility] Elmwdcmolb1437 [place] [address]Dr. Yilan Pulliam EGFR-AF CITIZEN OF THE [place] >60 Normal >=60 [facility] Comment on above: Performed By: #### C MP, BNP, HSTROPN ####[facility] Uvhpmpxpay0208 [place] [address]Dr. Garima Pulliam EGFR-NON AF CITIZEN OF [place] >60 Normal >=60 [facility] Comment on above: Performed By: #### C MP, BNP, HSTROPN ####[facility] Czbuepbgwr1886 [place] [address]Dr. Garima Pulliam Globulin (S) [Mass/Vol] 2.4 g/dL Normal [facility] Comment on above: Performed By: #### C MP, BNP, HSTROPN ####[facility] Eqkoecjjhn[address] [place], [place] [address]Dr. Garima Pulliam Glucose [Mass/Vol] 85 mg/dL Normal 74-106 [facility] Comment on above: Performed By: #### C MP, BNP, HSTROPN ####[facility] Eumtwjpwzf5430 [place] [address]Dr. Garima Pulliam Potassium [Moles/Vol] 3.7 mmol/L Normal 3.5-5.1 [facility] Comment on above: Performed By: #### C MP, BNP, HSTROPN ####[facility] Huwtwxashf2320 [place] [address]Dr. Garima Pulliam Protein [Mass/Vol] 6.0 g/dL Critically low 6.4-8.2 [facility] Comment on above: Performed By: #### C MP, BNP, HSTROPN ####[facility] Xbgpkiftwj8864 [place] [address]Dr. Garima Pulliam Sodium [Moles/Vol] 141 mmol/L Normal 136-145 [facility] Comment on above: Performed By: #### C MP, BNP, HSTROPN ####[facility] Yslmkgxlqa6939 [place] [address]Dr. Garima Pulliam Urea nitrogen [Mass/Vol] 5.0 mg/dL Critically low 7.0-18.0 [facility] Comment on above: Performed By: #### C MP, BNP, HSTROPN ####[facility] Tijcppjzzx1385 [place] [address]Dr. Garima Pulliam Urea nitrogen/Creatinine [Mass ratio] 7.7 mg/mg Normal [facility] Comment on above: Performed By: #### C MP, BNP, HSTROPN ####[facility] Xbegvemzmq9662 [place] [address]Dr. Garima Pulliam PROTIMEon 01-12-2023 INR Coag (PPP) [Relative time] 1.16 {INR} Normal [facility] Comment on above: Performed By: #### P TT, PT ####[facility] Grqsrkuksl8240 [place] [address]Dr. Garima Pulliam INR GUIDELINES SEE BELOW Normal [facility] Comment on above: Result Comment: WESLEY RED INR: 2.0 - 3.0 CONDITIONS NOT LISTED BELOW 2.5 - 3.5 FOR PROSTHETIC HEART VALVE REPLACEMENT 2.5 - 3.5 RECURRENT THROMBOSIS Performed By: #### P TT, PT ####[facility] Bdtvfomhnz[address] [place], [place] [address]Dr. Garima Pulliam PT Coag (PPP) [Time] 12.2 s Critically high 9.0-11.6 [facility] Comment on above: Performed By: #### P TT, PT ####[facility] Grqdwembyn6501 [place] [address]Dr. Garima Pulliam PTTon 01-12-2023 aPTT Coag (Bld) [Time] 29.1 s Normal 22.3-36.2 [facility] Comment on above: Performed By: #### P TT, PT ####[facility] Sdbsrzaowd[address] [place], [place] [address]Dr. Garima Pulliam TROPONIN, HIGH SENSITIVITYon 01-12-2023 HSTROP 10.3 pg/mL Normal 4.0-76.1 [facility] Comment on above: Result Comment: CUT- OFF POINTS HAVE BEEN ESTABLISHED BASED ON THE FOURTH UNIVERSAL DEFINITIONS OF MYOCARDIALINFARCTION. THE UPPER REFERENCE LIMIT (URL) OF TROPONIN, DEFINED THE 99TH PERCENTILE OFcTnI DISTRIBUTION IN A REFERENCE POPULATION, HAS BEEN CONFIRMED THE DECISION THRESHOLDFOR ND DIAGNOSIS. Performed By: #### H STROPN ####[facility] Oryictqpnu69[address] [place] [address]Dr. Garima Pulliam HSTROP 9.2 pg/mL Normal 4.0-76.1 [facility] Comment on above: Result Comment: CUT- OFF POINTS HAVE BEEN ESTABLISHED BASED ON THE FOURTH UNIVERSAL DEFINITIONS OF MYOCARDIALINFARCTION. THE UPPER REFERENCE LIMIT (URL) OF TROPONIN, DEFINED THE 99TH PERCENTILE OFcTnI DISTRIBUTION IN A REFERENCE POPULATION, HAS BEEN CONFIRMED THE DECISION THRESHOLDFOR ND DIAGNOSIS. Performed By: #### C MP, BNP, HSTROPN ####[facility] Babcipboes[address] [place] [address]Dr. Garima Pulliam XR CHEST 1 Von 01-12-2023 XR CHEST 1 V Normal [facility] XR CHEST 1 Von 01-01-2023 XR CHEST 1 V Normal [facility] CARDIAC NASH 3-6on 3 CK [Catalytic activity/Vol] 196 U/L Normal 39-308 [facility] Comment on above: Performed By: #### C MREP ####[facility] Bbkorzqkjd98[address] [place] [address]Dr. Garima Pulliam CK.MB [Mass/Vol] 7.41 ng/mL Critically high <=3.60 [facility] Comment on above: Performed By: #### C MREP ####[facility] Hjxpkaygfq0369 [place] [address]Dr. Garima Pulliam HSTROP 10.3 pg/mL Normal 4.0-76.1 [facility] Comment on above: Result Comment: CUT- OFF POINTS HAVE BEEN ESTABLISHED BASED ON THE FOURTH UNIVERSAL DEFINITIONS OF MYOCARDIALINFARCTION. THE UPPER REFERENCE LIMIT (URL) OF TROPONIN, DEFINED THE 99TH PERCENTILE OFcTnI DISTRIBUTION IN A REFERENCE POPULATION, HAS BEEN CONFIRMED THE DECISION THRESHOLDFOR ND DIAGNOSIS. Performed By: #### C MREP ####[facility] Qyosxfhgni5824 [place] [phone]. Garima Pulliam XR CHEST 1 Von 12-26-2022 XR CHEST 1 V Normal [facility] BNPon 12-25-2022 Natriuretic peptide B (Bld) [Mass/Vol] 98.0 pg/mL Normal <=900.0 [facility] Comment on above: Performed By: #### B MARVIN FRENCH CMADM ####[facility] Ozgfxstseu45[address] [place] [address]Dr. Garima Pulliam CARDIAC NASH ADMITon 023 CK [Catalytic activity/Vol] 208 U/L Normal 39-308 [facility] Comment on above: Performed By: #### B MARVIN FRENCH CMADM ####[facility] Slohtszcqm9140 [place] [address]Dr. Garima Pulliam CK.MB [Mass/Vol] 7.63 ng/mL Critically high <=3.60 [facility] Comment on above: Performed By: #### B MARVIN FRENCH CMADM ####[facility] Ybhpsedpwj[address] [place], [place] [address]Dr. Garima Pulliam HSTROP 8.8 pg/mL Normal 4.0-76.1 [facility] Comment on above: Result Comment: CUT- OFF POINTS HAVE BEEN ESTABLISHED BASED ON THE FOURTH UNIVERSAL DEFINITIONS OF MYOCARDIALINFARCTION. THE UPPER REFERENCE LIMIT (URL) OF TROPONIN, DEFINED THE 99TH PERCENTILE OFcTnI DISTRIBUTION IN A REFERENCE POPULATION, HAS BEEN CONFIRMED THE DECISION THRESHOLDFOR ND DIAGNOSIS. Performed By: #### B MARVIN FRENCH CMADM ####[facility] Hgtgaxcwmn[address] [place], [place] [address]Dr. Garima Pulliam DORIS 83 ng/mL Normal 16-96 [facility] Comment on above: Performed By: #### B MARVIN FRENCH CMADM ####[facility] Bfeyeqswqx94[address] [place], [place] [address]Dr. Garima Pulliam CBC AUTO DIFFon 12-25-2022 BASO # 0.0 103/ul Normal 0.0-0.1 [facility] Comment on above: Performed By: #### C BC ####[facility] Jmbypgcvnz0[address] [place], [place] [address]Dr. Garima Pulliam Basophils/100 WBC (Bld) 0.0 % Critically low 0.2-2.0 [facility] Comment on above: Performed By: #### C BC ####[facility] Hdkjuetrtw2842 [place] [address]Dr. Garima Pulliam EO # 0.0 103/ul Normal 0.0-0.7 [facility] Comment on above: Performed By: #### C BC ####[facility] Uxdgkxzozv[address] [place], [place] [address]Dr. Garima Pulliam Eosinophils/100 WBC (Bld) 0.7 % Critically low 0.9-7.0 [facility] Comment on above: Performed By: #### C BC ####[facility] Elynonlhav4[address] [place], [place] [address]Dr. Garima Pulliam Erythrocyte distribution width (RBC) [Ratio] 13.4 % Normal 11.0-15.0 [facility] Comment on above: Performed By: #### C BC ####[facility] Qnxdrhwrlf[address] [place], [place] [address]Dr. Garima Pulliam Hematocrit (Bld) [Volume fraction] 42.9 % Normal 42.0-54.0 [facility] Comment on above: Performed By: #### C BC ####[facility] Kmfksafbga[address] [place], [place] [address]Dr. Garima Pulliam Hemoglobin (Bld) [Mass/Vol] 14.4 g/dL Normal 14.0-18.0 [facility] Comment on above: Performed By: #### C BC ####[facility] Bvltlpaxhd7[address] [place], [place] [address]Dr. Garima Pulliam IG # 0.00 10e3/ul Normal 0.00-0.03 [facility] Comment on above: Performed By: #### C BC ####[facility] Xibwofktzj85[address] [place], [place] [address]Dr. Garima Pulliam IG % 0.0 % Normal 0.0-0.5 [facility] Comment on above: Performed By: #### C BC ####[facility] Djvwpdwjva9775[address] [place], [place] [address]Dr. Garima Pulliam LYMPH # 2.4 103/ul Normal 1.2-3.8 [facility] Comment on above: Performed By: #### C BC ####[facility] Ovwhhtnwrg8863 [place] [phone]. Chapisrenu Pulliam Lymphocytes/100 WBC (Bld) 29.2 % Normal 20.5-60.0 [facility] Comment on above: Performed By: #### C BC ####[facility] Ciefexoxmm7671 [place] [id number]. Garima Pulliam MANUAL DIFF REQ NO Normal [facility] Comment on above: Performed By: #### C BC ####[facility] Csqltyjgjy9004 [place] [phone]. Garima Pulliam MCH (RBC) [Entitic mass] 30.7 pg Normal 25.9-34.0 [facility] Comment on above: Performed By: #### C BC ####[facility] Kwrgzdrpvu[address] [place], [place] [address]Dr. Garima Pulliam MCHC (RBC) [Mass/Vol] 33.6 g/dL Normal 29.9-35.2 [facility] Comment on above: Performed By: #### C BC ####[facility] Vhdvxlmhij44[address] [place], [place] [address]Dr. Garima Pulliam MCV (RBC) [Entitic vol] 91.5 fL Normal 80.0-94.0 [facility] Comment on above: Performed By: #### C BC ####[facility] Xurucrmfsc96[address] [place], [place] [address]Dr. Garima Pulliam MONO # 0.0 103/ul Critically low 0.3-0.8 [facility] Comment on above: Performed By: #### C BC ####[facility] Xbidcoxdhp2476 [place] [address]Dr. Garima Pulliam Monocytes/100 WBC (Bld) 8.0 % Normal 1.7-12.0 [facility] Comment on above: Performed By: #### C BC ####[facility] Nopsipulwh0[address] [place], [place] [address]Dr. Garima Pulliam NEUT # 5.1 103/ul Normal 1.4-6.5 [facility] Comment on above: Performed By: #### C BC ####[facility] Ncxzataype2827 [place], [place] [address]Sf. Garima Pulliam Neutrophils/100 WBC (Bld) 62.8 % Normal 43.0-75.0 [facility] Comment on above: Performed By: #### C BC ####[facility] Ddcvrsmsvo8824 [place], [place] [address]Bi. Garima Pulliam Platelet mean volume (Bld) [Entitic vol] 8.6 fL Critically low 9.5-13.5 [facility] Comment on above: Performed By: #### C BC ####[facility] Lnngfieyok1966 [place] [id number]. Garima Pulliam PLT 200 103/ul Normal 150-450 [facility] Comment on above: Performed By: #### C BC ####[facility] Ccpkwwhpyz0072 [place] [phone]. Garima Pulliam RBC 4.69 106/ul Critically low 4.70-6.10 [facility] Comment on above: Performed By: #### C BC ####[facility] Llmsfrceim1327 [place], [place] [address]Nw. Garima Pulliam WBC 8.2 103/ul Normal 4.0-11.0 [facility] Comment on above: Performed By: #### C BC ####[facility] Nspivlphma0181 [place], [place] [address]Mp. Garima Pulliam [facility]on SARS-CoV-2 (COVID-19) RNA MARIE+probe Ql (Unsp spec) Not detected Normal NOT DETECTED [facility] Comment on above: Result Comment: When diagnostic [...] for this test is supported by the Rail [employer]ender of Health and Human Service's declaration that [...] Performed By: #### C VDTBH ####[facility] Blzqrzjsyb[address] [place], [place] [address]Dr. Garima Pulliam INFLUENZA A AND B AGon 12-25 INFLUANEGH SEE BELOW Normal [facility] Comment on above: Result Comment: Nega tive for Flu A protein angiten. Infection due to Flu A cannot be ruled out. Flu A angiten in the sample may be below the detection limit of the test. Performed By: #### I NFLUAB ####[facility] Gcxkejcjdn[address] [place], [place] [address]Dr. Garima Pulliam INFLUBNEGH SEE BELOW Normal [facility] Comment on above: Result Comment: Nega tive for Flu B protein antigen. Infection due to Flu B cannot be ruled out. Flu B antigen in the sample may be below the detection limit of the test. Performed By: #### I NFLUAB ####[facility] Muoaofmuxk[address] [place], [place] [address]Dr. Garima Pulliam INFLUENZA A AG Negative Normal NEGATIVE SEE COMMENT [facility] Comment on above: Performed By: #### I NFLUAB ####[facility] Dbfuuyuapf[address] [place], [place] [address]Dr. renu [facility] INFLUENZA B AG Negative Normal NEGATIVE SEE COMMENT [facility] Comment on above: Performed By: #### I NFLUAB ####[facility] Qvqvvhlyoh[address] [place], [place] [address]Dr. Garima Pulliam PROF CHEM 8 (BAS METB)on Anion gap [Moles/Vol] 11.1 mmol/L Normal [facility] Comment on above: Performed By: #### B TRUST OFFICER, BMP, CMADM ####[facility] Cofwmetogx[address] [place], [place] [address]Dr. Garima Pulliam Calcium [Mass/Vol] 8.5 mg/dL Normal 8.5-10.1 [facility] Comment on above: Performed By: #### B TRUST OFFICER, MARVIN, CMADM ####[facility] Khhhlltgae2462 [place] [phone]. Garima Pulliam Chloride [Moles/Vol] 106 mmol/L Normal 98-107 [facility] Comment on above: Performed By: #### B TRUST OFFICER, BMP, CMADM ####[facility] Acjhdjroat1837 [place] [address]Dr. Garima Pulliam CO2 [Moles/Vol] 27.4 mmol/L Normal 21.0-32.0 [facility] Comment on above: Performed By: #### B TRUST OFFICER, MARVIN, CMADM ####[facility] Bswfrdbybo8827 [place] [address]Dr. Garima Pulliam Creatinine [Mass/Vol] 0.65 mg/dL Critically low 0.70-1.30 [facility] Comment on above: Performed By: #### B TRUST OFFICER, MARVIN, CMADM ####[facility] Hkflpkzggb0751 [place] [address]Dr. Garima Pulliam EGFR-AF CITIZ[place] >60 Normal >=60 [facility] Comment on above: Performed By: #### B TRUST OFFICER, BMP, CMADM ####[facility] Utpryrppgs2227 [place] [address]Dr. Garima Pulliam EGFR-NON AF CITIZEN OF [place] >60 Normal >=60 [facility] Comment on above: Performed By: #### B TRUST OFFICER, BMP, CMADM ####[facility] Hacgytjkbz4289 [place] [address]Dr. Garima Pulliam Glucose [Mass/Vol] 140 mg/dL Critically high 74-[address] [facility] Comment on above: Performed By: #### B TRUST OFFICER, BMP, CMADM ####[facility] Xvmuebmlln8890 [place] [address]Dr. Garima Pulliam Potassium [Moles/Vol] 3.5 mmol/L Normal 3.5-5.1 [facility] Comment on above: Performed By: #### B TRUST OFFICER, BMP, CMADM ####[facility] Wnfeqipjxr2406 [place] [address]Dr. Garima Pulliam Sodium [Moles/Vol] 141 mmol/L Normal 136-145 [facility] Comment on above: Performed By: #### B TRUST OFFICER, BMP, CMADM ####[facility] Equzypcvaq2440 [place] [address]Dr. Garima Pulliam Urea nitrogen [Mass/Vol] 8.0 mg/dL Normal 7.0-18.0 [facility] Comment on above: Performed By: #### B TRUST OFFICER, BMP, CMADM ####[facility] Osmwyytnxm1044 [place] [address]Dr. Garima Pulliam Urea nitrogen/Creatinine [Mass ratio] 12.3 mg/mg Normal [facility] Comment on above: Performed By: #### B TRUST OFFICER, BMP, CMADM ####[facility] Zkpsonqvqj07[address] [place], [place] [address]Dr. Garima Pulliam CARDIAC NASH ADMITon 023 CK [Catalytic activity/Vol] 165 U/L Normal 39-308 [facility] Comment on above: Performed By: #### B DAVID, CMADM ####[facility] Glczsmcytk[address] [place], [place] [address]Dr. Garima Pulliam CK.MB [Mass/Vol] 6.48 ng/mL Critically high <=3.60 [facility] Comment on above: Performed By: #### B MP, CMADM ####[facility] Qbtgyzxlwl[address] [place], [place] [address]Dr. Garima Pulliam HSTROP 11.7 pg/mL Normal 4.0-76.1 [facility] Comment on above: Result Comment: CUT- OFF POINTS HAVE BEEN ESTABLISHED BASED ON THE FOURTH UNIVERSAL DEFINITIONS OF MYOCARDIALINFARCTION. THE UPPER REFERENCE LIMIT (URL) OF TROPONIN, DEFINED THE 99TH PERCENTILE OFcTnI DISTRIBUTION IN A REFERENCE POPULATION, HAS BEEN CONFIRMED THE DECISION THRESHOLDFOR ND DIAGNOSIS. Performed By: #### B MP, CMADM ####[facility] Jdorxpfyzk[address] [place], [place] [address]Dr. Garima Pulliam DORIS 83 ng/mL Normal 16-96 [facility] Comment on above: Performed By: #### B MP, CMADM ####[facility] Stwgtoeqix4250 [place] [address]Dr. Garima Pulliam CBC AUTO DIFFon 12-10-2022 BASO # 0.0 103/ul Normal 0.0-0.1 [facility] Comment on above: Performed By: #### C BC ####[facility] Jcqwbhtegg[address] [place], [place] [address]Dr. Garima Heraclio Basophils/100 WBC (Bld) 0.3 % Normal 0.2-2.0 [facility] Comment on above: Performed By: #### C BC ####[facility] Ghmxbqbmzv[address] [place], [place] [address]Dr. Garima Pulliam EO # 0.1 103/ul Normal 0.0-0.7 [facility] Comment on above: Performed By: #### C BC ####[facility] Ujulmeucsv[address] [place], [place] [address]Dr. Garima Pulliam Eosinophils/100 WBC (Bld) 0.4 % Critically low 0.9-7.0 [facility] Comment on above: Performed By: #### C BC ####[facility] Krxcyyfpqc[address] [place], [place] [address]Dr. Garima Pulliam Erythrocyte distribution width (RBC) [Ratio] 13.2 % Normal 11.0-15.0 [facility] Comment on above: Performed By: #### C BC ####[facility] Ytjlqubqgz[address] [place], [place] [address]Dr. Garima Pulliam Hematocrit (Bld) [Volume fraction] 42.4 % Normal 42.0-54.0 [facility] Comment on above: Performed By: #### C BC ####[facility] Bxvpbwqdiq00[address] [place], [place] [address]Dr. Garima Pulliam Hemoglobin (Bld) [Mass/Vol] 14.4 g/dL Normal 14.0-18.0 [facility] Comment on above: Performed By: #### C BC ####[facility] Jtnzaothue1491 [place] [id number]. Garima Heraclio IG # 0.05 10e3/ul Critically high 0.00-0.03 [facility] Comment on above: Performed By: #### C BC ####[facility] Qykzotglgi0690 [place] [address]Dr. Garima Heraclio IG % 0.4 % Normal 0.0-0.5 [facility] Comment on above: Performed By: #### C BC ####[facility] Xadxcrzycc9[address] [place], [place] [address]Dr. Garima Pulliam LYMPH # 0.8 103/ul Critically low 1.2-3.8 [facility] Comment on above: Performed By: #### C BC ####[facility] Okpyutixzn7[address] [place], [place] [address]Dr. Chapisrenu Pulliam Lymphocytes/100 WBC (Bld) 6.5 % Critically low 20.5-60.0 [facility] Comment on above: Performed By: #### C BC ####[facility] Eiucdgaaey7[address] [place], [place] [address]Dr. Chapisrenu Pulliam MANUAL DIFF REQ NO Normal [facility] Comment on above: Performed By: #### C BC ####[facility] Dodthmlcho[address] [place], [place] [address]DrAdalberto Garima Pulliam MCH (RBC) [Entitic mass] 30.5 pg Normal 25.9-34.0 [facility] Comment on above: Performed By: #### C BC ####[facility] Fviunraawy[address] [place], [place] [address]DrAdalberto Garima Heraclio MCHC (RBC) [Mass/Vol] 34.0 g/dL Normal 29.9-35.2 [facility] Comment on above: Performed By: #### C BC ####[facility] Qivtbvnkgm[address] [place], [place] [address]DrAdalberto Garima Heraclio MCV (RBC) [Entitic vol] 89.8 fL Normal 80.0-94.0 [facility] Comment on above: Performed By: #### C BC ####[facility] Angcpvywpc8[address] [place], [place] [address]Dr. Garima Pulliam MONO # 0.2 103/ul Critically low 0.3-0.8 [facility] Comment on above: Performed By: #### C BC ####[facility] Mcixlmaxub0229 [place] [id number]. Garima Pulliam Monocytes/100 WBC (Bld) 2.0 % Normal 1.7-12.0 [facility] Comment on above: Performed By: #### C BC ####[facility] Uaoyodagdo5843 [place] [address]Dr. Chapisrenu Heraclio NEUT # 10.5 103/ul Critically high 1.4-6.5 [facility] Comment on above: Performed By: #### C BC ####[facility] Ktcshtfpvp8251 [place] [address]Dr. Garima Pulliam Neutrophils/100 WBC (Bld) 90.4 % Critically high 43.0-75.0 [facility] Comment on above: Performed By: #### C BC ####[facility] Vfwdgshfzf0211 [place] [address]Dr. Garima Pulliam Platelet mean volume (Bld) [Entitic vol] 9.4 fL Critically low 9.5-13.5 [facility] Comment on above: Performed By: #### C BC ####[facility] Qqqhzdoege7661 [place] [address]Dr. Garima Pulliam PLT 198 103/ul Normal 150-450 [facility] Comment on above: Performed By: #### C BC ####[facility] Bpwnpbsnyw5829 [place] [address]Dr. Garima Pulliam RBC 4.72 106/ul Normal 4.70-6.10 [facility] Comment on above: Performed By: #### C BC ####[facility] Easlbggkwp2323 [place] [phone]. Garima Pulliam WBC 11.6 103/ul Critically high 4.0-11.0 [facility] Comment on above: Performed By: #### C BC ####[facility] [address]we[address]xtod[address] [place] [address]DrAdalberto Pulliam PROF CHEM 8 (BAS METB)on Anion gap [Moles/Vol] 11.3 mmol/L Normal [facility] Comment on above: Performed By: #### B NANCY HERNANDEZ ####[facility] Avivssqiat[address] [place] [address]Dr. Garima Pulliam Calcium [Mass/Vol] 8.9 mg/dL Normal 8.5-10.1 [facility] Comment on above: Performed By: #### B NANCY HERNANDEZ ####[facility] Fswnvshlbn8[address] [place] [address]Dr. Garima Pulliam Chloride [Moles/Vol] 103 mmol/L Normal 98-107 [facility] Comment on above: Performed By: #### B NANCY HERNANDEZ ####[facility] Xivnqwyisn[address] [place], [place] [address]Dr. Garima Pulliam CO2 [Moles/Vol] 28.2 mmol/L Normal 21.0-32.0 [facility] Comment on above: Performed By: #### NANCY Larkin MP ####[facility] Lebabezjdx64[address] [place] [address]Dr. Chapisrenu Pulliam Creatinine [Mass/Vol] 0.60 mg/dL Critically low 0.70-1.30 [facility] Comment on above: Performed By: #### NANCY Larkin MP ####[facility] Eldexprdcu[address] [place] [address]Dr. Garima Pulliam EGFR-AF CITIZEN OF [place] >60 Normal >=60 [facility] Comment on above: Performed By: #### NANCY Larkin MP ####[facility] Qkghaupfkb6[address] [place] [address]Dr. Garima Pulliam EGFR-NON AF CITIZEN OF [place] >60 Normal >=60 [facility] Comment on above: Performed By: #### NANCY Larkin MP ####[facility] Iwtj[address]ljax[address] [place], [place] [address]Dr. Garima Pulliam Glucose [Mass/Vol] 166 mg/dL Critically high 74-[address] [facility] Comment on above: Performed By: #### B MP, CMADM ####[facility] Mdihhqvkeo87[address] [place] [address]Dr. Garima Pulliam Potassium [Moles/Vol] 3.5 mmol/L Normal 3.5-5.1 [facility] Comment on above: Performed By: #### B MP, CMADM ####[facility] Xgjoegettg14[address] [place] [address]Dr. Garima Pulliam Sodium [Moles/Vol] 139 mmol/L Normal 136-145 [facility] Comment on above: Performed By: #### B DAVID, CMADM ####[facility] Ejapwirpxb7[address] [place] [address]Dr. Garima Heraclio Urea nitrogen [Mass/Vol] 9.0 mg/dL Normal 7.0-18.0 [facility] Comment on above: Performed By: #### B DAVID, NANCY ####[facility] Xxtfpxubvv[address] [place], [place] [address]Dr. Garima Heraclio Urea nitrogen/Creatinine [Mass ratio] 15.0 mg/mg Normal [facility] Comment on above: Performed By: #### B DAVID, CMAANA ROSA ####[facility] Pigzbixvih[address] [place], [place] [address]Dr. Garima Pulliam XR CHEST 1 Von 12-10-2022 XR CHEST 1 V Normal [facility] BNPon 11-27-2022 Natriuretic peptide B (Bld) [Mass/Vol] 95.0 pg/mL Normal <=900.0 [facility] Comment on above: Performed By: #### C MP, HSTROPN, BNP ####[facility] Zzdnixtzdy[address] [place], [place] [address]Dr. Garima Heraclio CBC AUTO DIFFon 11-27-2022 BASO # 0.0 103/ul Normal 0.0-0.1 [facility] Comment on above: Performed By: #### C BC ####[facility] Uuqjrdkltu[address] [place], [place] [address]Dr. Garima Heraclio Basophils/100 WBC (Bld) 0.2 % Normal 0.2-2.0 [facility] Comment on above: Performed By: #### C BC ####[facility] Gquqvqwmgx29[address] [place] [id number]. Garima Pulliam EO # 0.2 103/ul Normal 0.0-0.7 [facility] Comment on above: Performed By: #### C BC ####[facility] Yjbdjuczzj7982 [place] [phone]. Garima Pulliam Eosinophils/100 WBC (Bld) 2.0 % Normal 0.9-7.0 [facility] Comment on above: Performed By: #### C BC ####[facility] Iaznqzkbvh[address] [place], [place] [address]Dr. Garima Pulliam Erythrocyte distribution width (RBC) [Ratio] 13.2 % Normal 11.0-15.0 [facility] Comment on above: Performed By: #### C BC ####[facility] Gksctaawtz[address] [place], [place] [address]Dr. Garima Pulliam Hematocrit (Bld) [Volume fraction] 42.4 % Normal 42.0-54.0 [facility] Comment on above: Performed By: #### C BC ####[facility] Yugtapidwu[address] [place], [place] [address]Dr. Garima Pulliam Hemoglobin (Bld) [Mass/Vol] 14.4 g/dL Normal 14.0-18.0 [facility] Comment on above: Performed By: #### C BC ####[facility] Vnpijmocec[address] [place], [place] [address]Dr. Garima Pulliam IG # 0.04 10e3/ul Critically high 0.00-0.03 [facility] Comment on above: Performed By: #### C BC ####[facility] Anwstmmhhv14[address] [place], [place] [address]Dr. Garima Pulliam IG % 0.4 % Normal 0.0-0.5 [facility] Comment on above: Performed By: #### C BC ####[facility] Wythduxntd[address] [place], [place] [address]Dr. Garima Pulliam LYMPH # 2.2 103/ul Normal 1.2-3.8 [facility] Comment on above: Performed By: #### C BC ####[facility] Ogrmyrqska4272 [place] [phone]. Garima Pulliam Lymphocytes/100 WBC (Bld) 21.5 % Normal 20.5-60.0 [facility] Comment on above: Performed By: #### C BC ####[facility] Tumsgimdso16[address] [place] [id number]. Garima Heraclio MANUAL DIFF REQ NO Normal [facility] Comment on above: Performed By: #### C BC ####[facility] Gekeygmsyj5137 [place] [phone]. Garima Heraclio MCH (RBC) [Entitic mass] 30.4 pg Normal 25.9-34.0 [facility] Comment on above: Performed By: #### C BC ####[facility] Jyququiodq8426 [place] [address]Dr. Garima Heraclio MCHC (RBC) [Mass/Vol] 34.0 g/dL Normal 29.9-35.2 [facility] Comment on above: Performed By: #### C BC ####[facility] Mcfmcjoxgs2990 [place] [phone]. Garima Pulliam MCV (RBC) [Entitic vol] 89.6 fL Normal 80.0-94.0 [facility] Comment on above: Performed By: #### C BC ####[facility] Xxzgyrvdie3677 [place] [phone]. Garima Pulliam MONO # 0.8 103/ul Normal 0.3-0.8 [facility] Comment on above: Performed By: #### C BC ####[facility] Oeisrihiah0047 [place] [phone]. Chapisrenu Pulliam Monocytes/100 WBC (Bld) 7.7 % Normal 1.7-12.0 [facility] Comment on above: Performed By: #### C BC ####[facility] Mqstnsiajq[address] [place], [place] [address]Dr. Garima Pulliam NEUT # 7.0 103/ul Critically high 1.4-6.5 [facility] Comment on above: Performed By: #### C BC ####[facility] Qerdcmkaob4457 [place] [phone]. Garima Pulliam Neutrophils/100 WBC (Bld) 68.2 % Normal 43.0-75.0 [facility] Comment on above: Performed By: #### C BC ####[facility] Jibzhttcyi9057 [place] [phone]. Chapisrenu Pulliam Platelet mean volume (Bld) [Entitic vol] 8.9 fL Critically low 9.5-13.5 [facility] Comment on above: Performed By: #### C BC ####[facility] Qtiylxbpgq6441 [place] [address]Dr. Garima Pulliam PLT 222 103/ul Normal 150-450 [facility] Comment on above: Performed By: #### C BC ####[facility] Pndahhoehm9852 [place] [address]Dr. Garima Pulliam RBC 4.73 106/ul Normal 4.70-6.10 [facility] Comment on above: Performed By: #### C BC ####[facility] Rvvfhdxlli0316 [place] [address]Dr. Garima Pulliam WBC 10.3 103/ul Normal 4.0-11.0 [facility] Comment on above: Performed By: #### C BC ####[facility] Keezinvgdi95[address] [place] [address]Dr. Garima Pulliam PROF 14(COMP METB)on 023 Albumin [Mass/Vol] 3.7 g/dL Normal 3.4-5.0 [facility] Comment on above: Performed By: #### C MP, HSTROPN, BNP ####[facility] Npcdbqpmue8117 [place] [address]Dr. Chapisrenu Pulliam Albumin/Globulin [Mass ratio] 1.5 {ratio} Normal [facility] Comment on above: Performed By: #### C MP, HSTROPN, BNP ####[facility] Oemsnwxqmw9205 [place] [address]Dr. Garima Pulliam ALP [Catalytic activity/Vol] 79 U/L Normal 46-116 [facility] Comment on above: Performed By: #### C MP, HSTROPN, BNP ####[facility] Dbykapgotk2507 [place] [address]Dr. Garima Pulliam ALT [Catalytic activity/Vol] 32 U/L Normal 16-63 [facility] Comment on above: Performed By: #### C MP, HSTROPN, BNP ####[facility] Rzbwsgxggh3463 [place] [address]Dr. Garima Pulliam Anion gap [Moles/Vol] 9.5 mmol/L Normal [facility] Comment on above: Performed By: #### C MP, HSTROPN, BNP ####[facility] Qjocpbxasq[address] [place], [place] [address]Dr. Garima Pulliam AST [Catalytic activity/Vol] 25 U/L Normal 15-37 [facility] Comment on above: Performed By: #### C MP, HSTROPN, BNP ####[facility] Tqdatjcrpw[address] [place], [place] [address]Dr. Chapislan Pulliam Bilirubin [Mass/Vol] 0.4 mg/dL Normal 0.2-1.0 [facility] Comment on above: Performed By: #### C MP, HSTROPN, BNP ####[facility] Hyftuheztl[address] [place], [place] [address]Dr. Garima Pulliam Calcium [Mass/Vol] 8.9 mg/dL Normal 8.5-10.1 [facility] Comment on above: Performed By: #### C MP, HSTROPN, BNP ####[facility] Njupntupll[address] [place], [place] [address]Dr. Chapislan Pulliam Chloride [Moles/Vol] 103 mmol/L Normal 98-107 [facility] Comment on above: Performed By: #### C MP, HSTROPN, BNP ####[facility] Mgymjrbuiz187[address] [place], [place] [address]Dr. Yilan Pulliam CO2 [Moles/Vol] 28.6 mmol/L Normal 21.0-32.0 [facility] Comment on above: Performed By: #### C MP, HSTROPN, BNP ####[facility] Rwufgpaowu4347 [place] [address]Dr. Garima Pulliam Creatinine [Mass/Vol] 0.72 mg/dL Normal 0.70-1.30 [facility] Comment on above: Performed By: #### C MP, HSTROPN, BNP ####[facility] Wqtozrqrfw0586 [place] [address]Dr. Garima Pulliam EGFR-AF CITIZ[place] >60 Normal >=60 [facility] Comment on above: Performed By: #### C MP, HSTROPN, BNP ####[facility] Mfumapngtf7425 [place] [address]Dr. Garima Pulliam EGFR-NON AF CITIZEN OF [place] >60 Normal >=60 [facility] Comment on above: Performed By: #### C MP, HSTROPN, BNP ####[facility] Jdrbobgkpt5860 [place] [address]Dr. Garima Pulliam Globulin (S) [Mass/Vol] 2.5 g/dL Normal [facility] Comment on above: Performed By: #### C MP, HSTROPN, BNP ####[facility] Ijtjakgunh[address] [place], [place] [address]Dr. Garima Pulliam Glucose [Mass/Vol] 114 mg/dL Critically high 74-106 [facility] [place] [facility] Comment on above: Performed By: #### C MP, HSTROPN, BNP ####[facility] Sgjxzcezos[address] [place], [place] [address]Dr. Garima Pulliam Potassium [Moles/Vol] 4.1 mmol/L Normal 3.5-5.1 [facility] Comment on above: Performed By: #### C MP, HSTROPN, BNP ####[facility] Lxokhczmyg[address] [place], [place] [address]Dr. Garima Pulliam Protein [Mass/Vol] 6.2 g/dL Critically low 6.4-8.2 [facility] Comment on above: Performed By: #### C MP, HSTROPN, BNP ####[facility] Vcdzsasros[address] [place], [place] [address]Dr. Yilan Pulliam Sodium [Moles/Vol] 137 mmol/L Normal 136-145 [facility] Comment on above: Performed By: #### C MP, HSTROPN, BNP ####[facility] Faieywzflx8932 [place] [address]Dr. Garima Pulliam Urea nitrogen [Mass/Vol] 13.0 mg/dL Normal 7.0-18.0 [facility] Comment on above: Performed By: #### C MP, HSTROPN, BNP ####[facility] Pwunbjuqog7860 [place] [address]Dr. Garima Pulliam Urea nitrogen/Creatinine [Mass ratio] 18.1 mg/mg Normal [facility] Comment on above: Performed By: #### C MP, HSTROPN, BNP ####[facility] Tydxbvuwon[address] [place], [place] [address]Dr. Garima Pulliam TROPONIN, HIGH SENSITIVITYon 11-27-2022 HSTROP 11.8 pg/mL Normal 4.0-76.1 [facility] Comment on above: Result Comment: CUT- OFF POINTS HAVE BEEN ESTABLISHED BASED ON THE FOURTH UNIVERSAL DEFINITIONS OF MYOCARDIALINFARCTION. THE UPPER REFERENCE LIMIT (URL) OF TROPONIN, DEFINED THE 99TH PERCENTILE OFcTnI DISTRIBUTION IN A REFERENCE POPULATION, HAS BEEN CONFIRMED THE DECISION THRESHOLDFOR ND DIAGNOSIS. Performed By: #### C MP, HSTROPN, BNP ####[facility] Jttxnnpsep[address] [place], [place] [address]Dr. Garima Pulliam XR CHEST 1 Von 11-27-2022 XR CHEST 1 V Normal [facility] BNPon 11-20-2022 Natriuretic peptide B (Bld) [Mass/Vol] 73.0 pg/mL Normal <=900.0 [facility] Comment on above: Performed By: #### B MP, HSTROPN, BNP ####[facility] Fmknqmbhga[address] [place], [place] [address]Dr. Garima Pulliam CBC AUTO DIFFon 11-20-2022 BASO # 0.0 103/ul Normal 0.0-0.1 [facility] Comment on above: Performed By: #### C BC ####[facility] Xwmuirmxlt9312 [place] [id number]. Garima Pulliam Basophils/100 WBC (Bld) 0.3 % Normal 0.2-2.0 [facility] Comment on above: Performed By: #### C BC ####[facility] Yavpeglqwn3368 [place] [id number]. Garima Pulliam EO # 0.2 103/ul Normal 0.0-0.7 [facility] Comment on above: Performed By: #### C BC ####[facility] Zqmiwsaxll4175 [place] [address]Dr. Garima Pulliam Eosinophils/100 WBC (Bld) 2.1 % Normal 0.9-7.0 [facility] Comment on above: Performed By: #### C BC ####[facility] Zunqrzfskp[address] [place], [place] [address]Dr. Garima Pulliam Erythrocyte distribution width (RBC) [Ratio] 13.2 % Normal 11.0-15.0 [facility] Comment on above: Performed By: #### C BC ####[facility] Yccsjogmci17[address] [place], [place] [address]Dr. Garima Pulliam Hematocrit (Bld) [Volume fraction] 43.4 % Normal 42.0-54.0 [facility] Comment on above: Performed By: #### C BC ####[facility] Wdvnyxfbgc[address] [place], [place] [address]Dr. Garima Pulliam Hemoglobin (Bld) [Mass/Vol] 14.6 g/dL Normal 14.0-18.0 [facility] Comment on above: Performed By: #### C BC ####[facility] Ibyismyhpk2230 [place] [phone]. Garima Pulliam IG # 0.02 10e3/ul Normal 0.00-0.03 [facility] Comment on above: Performed By: #### C BC ####[facility] Vaymelqalg5055 [place] [address]Dr. Garima Pulliam IG % 0.2 % Normal 0.0-0.5 [facility] Comment on above: Performed By: #### C BC ####[facility] Rtevvottpw9411 [place] [phone]. Garima Heraclio LYMPH # 2.1 103/ul Normal 1.2-3.8 [facility] Comment on above: Performed By: #### C BC ####[facility] Stlnrjfgkm8880 [place] [phone]. Garima Heraclio Lymphocytes/100 WBC (Bld) 19.2 % Critically low 20.5-60.0 [facility] Comment on above: Performed By: #### C BC ####[facility] Qiqkctvfse8872 [place] [phone]. Chapisrenu Pulliam MANUAL DIFF REQ NO Normal [facility] Comment on above: Performed By: #### C BC ####[facility] Bmawuhgkyz2550 [place] [phone]. Garima Heraclio MCH (RBC) [Entitic mass] 30.4 pg Normal 25.9-34.0 [facility] Comment on above: Performed By: #### C BC ####[facility] Lafjgucgzw0721 [place] [address]Dr. Garima Pulliam MCHC (RBC) [Mass/Vol] 33.6 g/dL Normal 29.9-35.2 [facility] Comment on above: Performed By: #### C BC ####[facility] Zdjczbptjl3258 [place] [phone]. Garima Heraclio MCV (RBC) [Entitic vol] 90.4 fL Normal 80.0-94.0 [facility] Comment on above: Performed By: #### C BC ####[facility] Clrorcyfnz9412 [place] [phone]. Garima Heraclio MONO # 0.6 103/ul Normal 0.3-0.8 [facility] Comment on above: Performed By: #### C BC ####[facility] Frfbestwba3352 [place] [address]Dr. Garima Heraclio Monocytes/100 WBC (Bld) 5.8 % Normal 1.7-12.0 [facility] Comment on above: Performed By: #### C BC ####[facility] Qakltquvow8201 [place], [place] [address]Qk. Garima Pulliam NEUT # 7.8 103/ul Critically high 1.4-6.5 [facility] Comment on above: Performed By: #### C BC ####[facility] Egrgwgyoiv9180 [place] [phone]. Garima Pulliam Neutrophils/100 WBC (Bld) 72.4 % Normal 43.0-75.0 [facility] Comment on above: Performed By: #### C BC ####[facility] Vkhovzgqws7992 [place] [phone]. Garima Pulliam Platelet mean volume (Bld) [Entitic vol] 8.7 fL Critically low 9.5-13.5 [facility] Comment on above: Performed By: #### C BC ####[facility] Vkorpyzscf7232 [place] [phone]. Garima Pulliam PLT 184 103/ul Normal 150-450 [facility] Comment on above: Performed By: #### C BC ####[facility] Gwikfnpwmy1389 [place], [place] [address]Aj. Garima Pulliam RBC 4.80 106/ul Normal 4.70-6.10 [facility] Comment on above: Performed By: #### C BC ####[facility] Dcplaqcgwb3583 [place] [phone]. Garima Pulliam WBC 10.8 103/ul Normal 4.0-11.0 [facility] Comment on above: Performed By: #### C BC ####[facility] Mfiuysuaqa9015 [place] [phone]. Garima Pulliam [facility] SARS-CoV-2 (COVID-19) RNA MARIE+probe Ql (Unsp spec) Not detected Normal NOT DETECTED [facility] Comment on above: Result Comment: When diagnostic [...] for this test is supported by the [place] of Health and Human Service's declaration that [...] Performed By: #### C VDTBH ####[facility] Iluqjygmgv[address] [place], [place] [address]Dr. Garima Pulliam INFLUENZA A AND B AGon 11-20 [facility] SEE BELOW Normal [facility] Comment on above: Result Comment: Nega tive for Flu A protein angiten. Infection due to Flu A cannot be ruled out. Flu A angiten in the sample may be below the detection limit of the test. Performed By: #### I NFLUAB ####[facility] Kypbhjxpea[address] [place], [place] [address]Dr. Garima Pulliam INFLUBNEGH SEE BELOW Normal [facility] Comment on above: Result Comment: Nega tive for Flu B protein antigen. Infection due to Flu B cannot be ruled out. Flu B antigen in the sample may be below the detection limit of the test. Performed By: #### I NFLUAB ####[facility] Csgnudztdy[address] [place], [place] [address]Dr. Garima Pulliam INFLUENZA A AG Negative Normal NEGATIVE SEE COMMENT [facility] Comment on above: Performed By: #### I NFLUAB ####[facility] Ixjccppvzv[address] [place], [place] [address]Dr. Garima [facility] INFLUENZA B AG Negative Normal NEGATIVE SEE COMMENT [facility] Comment on above: Performed By: #### I NFLUAB ####[facility] Ptyzrvhleg[address] [place], [place] [address]Dr. Garima Pulliam PROF CHEM 8 (BAS METB)on Anion gap [Moles/Vol] 8.2 mmol/L Normal [facility] Comment on above: Performed By: #### B MP, HSTROPN, BNP ####[facility] Cuqpanegln5482 [place] [address]Dr. Garima Pulliam Calcium [Mass/Vol] 8.7 mg/dL Normal 8.5-10.1 [facility] Comment on above: Performed By: #### B MP, HSTROPN, BNP ####[facility] Imfyfqdvri1521 [place] [address]Dr. Garima Pulliam Chloride [Moles/Vol] 103 mmol/L Normal 98-107 [facility] Comment on above: Performed By: #### B MP, HSTROPN, BNP ####[facility] Keshvpwmpc[address] [place], [place] [address]Dr. Garima Pulliam CO2 [Moles/Vol] 29.4 mmol/L Normal 21.0-32.0 [facility] Comment on above: Performed By: #### B MP, HSTROPN, BNP ####[facility] Rfctjgebmi[address] [place], [place] [address]Dr. Garima Pulliam Creatinine [Mass/Vol] 0.69 mg/dL Critically low 0.70-1.30 [facility] Comment on above: Performed By: #### B MP, HSTROPN, BNP ####[facility] Ijdqkvvqec4442 [place] [address]Dr. Garima Pulliam EGFR-AF [place]IZ[place] >60 Normal >=60 [facility] Comment on above: Performed By: #### B MP, HSTROPN, BNP ####[facility] Jaxazbuyyy[address] [place], [place] [address]Dr. Garima Pulliam EGFR-NON AF CITIZEN OF [place] >60 Normal >=60 [facility] Comment on above: Performed By: #### B MP, HSTROPN, BNP ####[facility] Ftnzigqowt6968 [place] [address]Dr. Garima Pulliam Glucose [Mass/Vol] 209 mg/dL Critically high 74-106 T [facility] Comment on above: Performed By: #### B MP, HSTROPN, BNP ####[facility] Xdsxigopyr8814 [place] [address]Dr. Garima Pullima Potassium [Moles/Vol] 3.6 mmol/L Normal 3.5-5.1 [facility] Comment on above: Performed By: #### B MP, HSTROPN, BNP ####[facility] Ppoqwybsvi5170 [place] [address]Dr. Garima Pulliam Sodium [Moles/Vol] 137 mmol/L Normal 136-145 [facility] Comment on above: Performed By: #### B MP, HSTROPN, BNP ####[facility] Voribiygge9637 [place] [address]Dr. Garima Pulliam Urea nitrogen [Mass/Vol] 11.0 mg/dL Normal 7.0-18.0 [facility] Comment on above: Performed By: #### B MP, HSTROPN, BNP ####[facility] Kxksyplryc9215 [place] [address]Dr. Garima Pulliam Urea nitrogen/Creatinine [Mass ratio] 15.9 mg/mg Normal [facility] Comment on above: Performed By: #### B MP, HSTROPN, BNP ####[facility] Clyszlwmdz2965 [place] [address]Dr. Garima Pulliam TROPONIN, HIGH SENSITIVITYon 11-20-2022 HSTROP 8.7 pg/mL Normal 4.0-76.1 [facility] Comment on above: Result Comment: CUT- OFF POINTS HAVE BEEN ESTABLISHED BASED ON THE FOURTH UNIVERSAL DEFINITIONS OF MYOCARDIALINFARCTION. THE UPPER REFERENCE LIMIT (URL) OF TROPONIN, DEFINED THE 99TH PERCENTILE OFcTnI DISTRIBUTION IN A REFERENCE POPULATION, HAS BEEN CONFIRMED THE DECISION THRESHOLDFOR ND DIAGNOSIS. Performed By: #### B MP, HSTROPN, BNP ####[facility] Mgsutuegnv4574 [place] [address]Dr. Garima Pulliam XR CHEST 1 Von 11-20-2022 XR CHEST 1 V Normal [facility] XR CHEST 1 Von 10-02-2022 XR CHEST 1 V Normal [facility] BNPon 09-29-2022 Natriuretic peptide B (Bld) [Mass/Vol] 107.0 pg/mL Normal <=900.0 [facility] Comment on above: Performed By: #### C MP, BNP, CMADM ####[facility] Rdbfarnksa5985 [place] [address]Dr. Garima Pulliam CARDIAC NASH ADMITon 022 CK [Catalytic activity/Vol] 190 U/L Normal 39-308 [facility] Comment on above: Performed By: #### C MP, BNP, CMADM ####[facility] Sjfugoobrb3281 [place] [address]Dr. Garima Heraclio CK.MB [Mass/Vol] 11.11 ng/mL Critically high <=3.60 [facility] Comment on above: Performed By: #### C MP, BNP, CMADM ####[facility] Tfnjusvvxx9299 [place] [address]Dr. Garima Pulliam HSTROP 11.8 pg/mL Normal 4.0-76.1 [facility] Comment on above: Result Comment: CUT- OFF POINTS HAVE BEEN ESTABLISHED BASED ON THE FOURTH UNIVERSAL DEFINITIONS OF MYOCARDIALINFARCTION. THE UPPER REFERENCE LIMIT (URL) OF TROPONIN, DEFINED THE 99TH PERCENTILE OFcTnI DISTRIBUTION IN A REFERENCE POPULATION, HAS BEEN CONFIRMED THE DECISION THRESHOLDFOR ND DIAGNOSIS. Performed By: #### C MP, BNP, CMADM ####[facility] Ixjvebbsql1358 [place] [address]Dr. Garima Pulliam DORIS 133 ng/mL Critically high 16-96 [facility] Comment on above: Performed By: #### C MP, BNP, CMADM ####[facility] Wnljcqtick4093 [place] [address]Dr. Garima Heraclio CBC AUTO DIFFon 09-29-2022 BASO # 0.0 103/ul Normal 0.0-0.1 [facility] Comment on above: Performed By: #### C BC ####[facility] Yczlhjhmxd0654 [place] [address]Dr. Garima Heraclio Basophils/100 WBC (Bld) 0.2 % Normal 0.2-2.0 [facility] Comment on above: Performed By: #### C BC ####[facility] Ckscddjvxw5254 [place] [id number]. Garima Pulliam EO # 0.1 103/ul Normal 0.0-0.7 [facility] Comment on above: Performed By: #### C BC ####[facility] Xbrlkztooz6743 [place] [id number]. Garima Pulliam Eosinophils/100 WBC (Bld) 1.4 % Normal 0.9-7.0 [facility] Comment on above: Performed By: #### C BC ####[facility] Xgzjdxmsnx[address] [place], [place] [address]Dr. Garima Pulliam Erythrocyte distribution width (RBC) [Ratio] 13.7 % Normal 11.0-15.0 [facility] Comment on above: Performed By: #### C BC ####[facility] Vrnxtuyhpl[address] [place], [place] [address]Dr. Garima Pulliam Hematocrit (Bld) [Volume fraction] 45.4 % Normal 42.0-54.0 [facility] Comment on above: Performed By: #### C BC ####[facility] Rsxdtqnsda65[address] [place], [place] [address]Dr. Garima Pulliam Hemoglobin (Bld) [Mass/Vol] 14.8 g/dL Normal 14.0-18.0 [facility] [facility] Comment on above: Performed By: #### C BC ####[facility] [address] [place], [place] [address]Dr. Garima Pulliam IG # 0.04 10e3/ul Critically high 0.00-0.03 [facility] Comment on above: Performed By: #### C BC ####[facility] Iogdzaumis[address] [place], [place] [address]Dr. Garima Pulliam IG % 0.5 % Normal 0.0-0.5 [facility] Comment on above: Performed By: #### C BC ####[facility] Oruwivahfk[address] [place], [place] [address]Dr. Garima Pulliam LYMPH # 1.1 103/ul Critically low 1.2-3.8 [facility] Comment on above: Performed By: #### C BC ####[facility] Bl[address]npeoan[address] [place] [id number]. Garima Pulliam Lymphocytes/100 WBC (Bld) 12.7 % Critically low 20.5-60.0 [facility] Comment on above: Performed By: #### C BC ####[facility] Zedbfunvxp7491 [place] [phone]. Chapisrenu Pulliam MANUAL DIFF REQ NO Normal [facility] Comment on above: Performed By: #### C BC ####[facility] Xnnblrywtt[address] [place], [place] [id number]. Garima Heraclio MCH (RBC) [Entitic mass] 30.0 pg Normal 25.9-34.0 [facility] Comment on above: Performed By: #### C BC ####[facility] Rklseeyvbx[address] [place], [place] [address]Dr. Garima Heraclio MCHC (RBC) [Mass/Vol] 32.6 g/dL Normal 29.9-35.2 [facility] Comment on above: Performed By: #### C BC ####[facility] Wricnpsuak[address] [place], [place] [id number]. Garima Heraclio MCV (RBC) [Entitic vol] 91.9 fL Normal 80.0-94.0 [facility] Comment on above: Performed By: #### C BC ####[facility] Eeamwgsysl[address] [place], [place] [address]Dr. Garima Pulliam MONO # 0.4 103/ul Normal 0.3-0.8 [facility] Comment on above: Performed By: #### C BC ####[facility] Leizqmjzub[address] [place], [place] [id number]. Chapisrenu Pulliam Monocytes/100 WBC (Bld) 4.8 % Normal 1.7-12.0 [facility] Comment on above: Performed By: #### C BC ####[facility] Trfntsdjpg[address] [place], [place] [address]Dr. Garima Pulliam NEUT # 7.1 103/ul Critically high 1.4-6.5 [facility] Comment on above: Performed By: #### C BC ####[facility] Chnwajlevt4795 [place], [place] [address]Nh. Garima Pulliam Neutrophils/100 WBC (Bld) 80.4 % Critically high 43.0-75.0 [facility] Comment on above: Performed By: #### C BC ####[facility] Npbnaytzwt2036 [place] [phone]. Garima Pulliam Platelet mean volume (Bld) [Entitic vol] 9.1 fL Critically low 9.5-13.5 [facility] Comment on above: Performed By: #### C BC ####[facility] Ouhlhczqbw6398 [place] [phone]. Garima Pulliam PLT 200 103/ul Normal 150-450 [facility] Comment on above: Performed By: #### C BC ####[facility] Mfepgzfrty5468 [place] [phone]. Garima Pulliam RBC 4.94 106/ul Normal 4.70-6.10 [facility] Comment on above: Performed By: #### C BC ####[facility] Csvixguweo2767 [place] [phone]. Garima Pulliam WBC 8.9 103/ul Normal 4.0-11.0 [facility] Comment on above: Performed By: #### C BC ####[facility] Evubbwxnfh5723 [place] [phone]. Garima Pulliam Covid-19 PCR (CVDTB)on SARS-CoV-2 (COVID-19) RNA MARIE+probe Ql (Unsp spec) Not detected Normal NOT DETECTED [facility] Comment on above: Result Comment: When diagnostic [...] for this test is supported by the [employer] of Health and Human Service's declaration that [...] Performed By: #### C VDTBH ####[facility] Jkgnhgwbvi[address] [place] [address]Dr. Garima Pulliam LACTATE/LACTIC ACIDon 2021 Lactate [Moles/Vol] 1.7 mmol/L Normal 0.4-1.9 [facility] Comment on above: Performed By: #### L ACT ####[facility] Tuxtfhgndd[address] [place], [place] [address]Dr. Garima Pulliam PROF 14(COMP METB)on 022 Albumin [Mass/Vol] 3.8 g/dL Normal 3.4-5.0 [facility] Comment on above: Performed By: #### C MP, BNP, CMADM ####[facility] Qljednbrjr4[address] [place], [place] [address]Dr. Garima Pulliam Albumin/Globulin [Mass ratio] 1.5 {ratio} Normal [facility] Comment on above: Performed By: #### C MP, BNP, CMADM ####[facility] Blvzglljuc[address] [place] [address]Dr. Garima Pulliam ALP [Catalytic activity/Vol] 62 U/L Normal 46-116 [facility] Comment on above: Performed By: #### C MP, BNP, CMADM ####[facility] Xcyyrftvcz3501 [place] [address]Dr. Garima Pulliam ALT [Catalytic activity/Vol] 37 U/L Normal 16-63 [facility] Comment on above: Performed By: #### C MP, BNP, CMADM ####[facility] Fddsqgqinc3748 [place] [address]Dr. Garima Pulliam Anion gap [Moles/Vol] 8.0 mmol/L Normal [facility] Comment on above: Performed By: #### C MP, BNP, CMADM ####[facility] Nspbpohuue9218 [place] [address]Dr. Garima Pulliam AST [Catalytic activity/Vol] 20 U/L Normal 15-37 [facility] Comment on above: Performed By: #### C MP, BNP, CMADM ####[facility] Vmoyzmqujx4317 [place] [address]Dr. Garima Pullima Bilirubin [Mass/Vol] 0.6 mg/dL Normal 0.2-1.0 [facility] Comment on above: Performed By: #### C MP, BNP, CMADM ####[facility] Vdgtknapfs9356 [place] [address]Dr. Garima Pulliam Calcium [Mass/Vol] 9.1 mg/dL Normal 8.5-10.1 [facility] Comment on above: Performed By: #### C MP, BNP, CMADM ####[facility] Fgjgvhpdbo64[address] [place], [place] [address]Dr. Garima Pulliam Chloride [Moles/Vol] 103 mmol/L Normal 98-107 [facility] Comment on above: Performed By: #### C MP, BNP, CMADM ####[facility] Llrfuztzlc6[address] [place], [place] [address]Dr. Garima Pulliam CO2 [Moles/Vol] 31.8 mmol/L Normal 21.0-32.0 [facility] Comment on above: Performed By: #### C MP, BNP, CMADM ####[facility] Zanxkdylkg85[address] [place], [place] [address]Dr. Garima Pulliam Creatinine [Mass/Vol] 0.63 mg/dL Critically low 0.70-1.30 [facility] Comment on above: Performed By: #### C MP, BNP, CMADM ####[facility] Xiugrsboju[address] [place], [place] [address]Dr. Garima Pulliam EGFR-AF CITIZEN OF [place] >60 Normal >=60 [facility] Comment on above: Performed By: #### C MP, BNP, CMADM ####[facility] Isagpxmtmx20[address] [place], [place] [address]Dr. Garima Pulliam EGFR-NON AF CITIZEN OF [place] >60 Normal >=60 [facility] Comment on above: Performed By: #### C MP, BNP, CMADM ####[facility] Rovzkpsxrm15[address] [place] [address]Dr. Garima Pulliam Globulin (S) [Mass/Vol] 2.6 g/dL Normal [facility] Comment on above: Performed By: #### C MP, BNP, CMADM ####[facility] Dmbyyzmuty5026 [place] [address]Dr. Garima Pulliam Glucose [Mass/Vol] 103 mg/dL Normal 74-106 [facility] Comment on above: Performed By: #### C MP, BNP, CMADM ####[facility] Hotggdafnr7874 [place] [address]Dr. Garima Pulliam Potassium [Moles/Vol] 3.8 mmol/L Normal 3.5-5.1 [facility] Comment on above: Performed By: #### C MP, BNP, CMADM ####[facility] Wlstjssipd6285 [place] [address]Dr. Garima Pulliam Protein [Mass/Vol] 6.4 g/dL Normal 6.4-8.2 [facility] Comment on above: Performed By: #### C MP, BNP, CMADM ####[facility] Owjxyudztp0741 [place] [address]Dr. Garima Pulliam Sodium [Moles/Vol] 139 mmol/L Normal 136-145 [facility] Comment on above: Performed By: #### C MP, BNP, CMADM ####[facility] Ccewsxsxan8581 [place] [address]Dr. Garima Pulliam Urea nitrogen [Mass/Vol] 7.0 mg/dL Normal 7.0-18.0 [facility] Comment on above: Performed By: #### C MP, BNP, CMADM ####[facility] Pjhcamidqz5436 [place] [address]Dr. Garima Pulliam Urea nitrogen/Creatinine [Mass ratio] 11.1 mg/mg Normal [facility] Comment on above: Performed By: #### C MP, BNP, CMADM ####[facility] Cnlasswkdf6335 [place] [address]Dr. Garima Pulliam PROTIMEon 09-29-2022 INR Coag (PPP) [Relative time] 1.14 {INR} Normal [facility] Comment on above: Performed By: #### P T, PTT ####[facility] Osthfaseyp[address] [place], [place] [address]Dr. Garima Pulliam INR GUIDELINES SEE BELOW Normal [facility] Comment on above: Result Comment: WESLEY RED INR: 2.0 - 3.0 CONDITIONS NOT LISTED BELOW 2.5 - 3.5 FOR PROSTHETIC HEART VALVE REPLACEMENT 2.5 - 3.5 RECURRENT THROMBOSIS Performed By: #### P T, PTT ####[facility] Dbuvqliero[address] [place], [place] [address]Dr. Garima Pulliam PT Coag (PPP) [Time] 12.2 s Critically high 9.0-11.6 [facility] Comment on above: Performed By: #### P T, PTT ####[facility] Xgcedxmeay[address] [place], [place] [address]Dr. Garima Pulliam PTTon 09-29-2022 aPTT Coag (Bld) [Time] 29.3 s Normal 22.3-36.2 [facility] Comment on above: Performed By: #### P T, PTT ####[facility] Numgumidtm[address] [place], [place] [address]Dr. Garima Pulliam XR CHEST 1 Von 09-29-2022 XR CHEST 1 V Normal [facility] CBC AUTO DIFFon 09-26-2022 BASO # 0.0 103/ul Normal 0.0-0.1 [facility] Comment on above: Performed By: #### C BC ####[facility] Zjfshgwynt[address] [place], [place] [address]Dr. Garima Pulliam Basophils/100 WBC (Bld) 0.2 % Normal 0.2-2.0 [facility] Comment on above: Performed By: #### C BC ####[facility] Slfhsmpcsi13[address] [place], [place] [address]Dr. Garima Pulliam EO # 0.1 103/ul Normal 0.0-0.7 [facility] Comment on above: Performed By: #### C BC ####[facility] Uyuitkfgav217[address] [place], [place] [address]Dr. Garima Pulliam Eosinophils/100 WBC (Bld) 1.0 % Normal 0.9-7.0 [facility] Comment on above: Performed By: #### C BC ####[facility] Aepmodxtbu[address] [place], [place] [address]Dr. Garima Pullaim Erythrocyte distribution width (RBC) [Ratio] 13.4 % Normal 11.0-15.0 [facility] Comment on above: Performed By: #### C BC ####[facility] Ufklwtxaph878[address] [place], [place] [address]Dr. Garima Pulliam Hematocrit (Bld) [Volume fraction] 46.3 % Normal 42.0-54.0 [facility] Comment on above: Performed By: #### C BC ####[facility] Gjjidaoutv[address]24[address] [place], [place] [address]Dr. Garima Pulliam Hemoglobin (Bld) [Mass/Vol] 15.3 g/dL Normal 14.0-18.0 [facility] Comment on above: Performed By: #### C BC ####[facility] Ehwlxjpweo87[address] [place], [place] [address]Dr. Garima Pulliam IG # 0.05 10e3/ul Critically high 0.00-0.03 [facility] Comment on above: Performed By: #### C BC ####[facility] Niuxnxrvma98[address] [place], [place] [address]Dr. Garima Pulliam IG % 0.4 % Normal 0.0-0.5 [facility] Comment on above: Performed By: #### C BC ####[facility] Usngluhmzc8[address] [place], [place] [address]Dr. Garima Pulliam LYMPH # 1.7 103/ul Normal 1.2-3.8 [facility] Comment on above: Performed By: #### C BC ####[facility] Umuvzzoszv17[address] [place], [place] [address]Dr. Garima Pulliam Lymphocytes/100 WBC (Bld) 12.7 % Critically low 20.5-60.0 [facility] Comment on above: Performed By: #### C BC ####[facility] Wvsyjzerli9724 [place] [address]DrAdalberto Pulliam MANUAL DIFF REQ NO Normal [facility] Comment on above: Performed By: #### C BC ####[facility] Dxbrhqxlwu1481 [place] [address]Dr. Garima Pulliam MCH (RBC) [Entitic mass] 30.1 pg Normal 25.9-34.0 [facility] Comment on above: Performed By: #### C BC ####[facility] Hmubvmbutn[address] [place], [place] [address]Dr. Garima Pulliam MCHC (RBC) [Mass/Vol] 33.0 g/dL Normal 29.9-35.2 [facility] Comment on above: Performed By: #### C BC ####[facility] Lgxpbwypxy3464[address] [place], [place] [address]DrAdalberto Pulliam MCV (RBC) [Entitic vol] 91.1 fL Normal 80.0-94.0 [facility] Comment on above: Performed By: #### C BC ####[facility] Mqoijgmslt8[address] [place], [place] [address]DrAdalberto Pulliam MONO # 0.9 103/ul Critically high 0.3-0.8 [facility] Comment on above: Performed By: #### C BC ####[facility] Jqcxyvaila[address] [place], [place] [address]DrAdalberto Pulliam Monocytes/100 WBC (Bld) 7.0 % Normal 1.7-12.0 [facility] Comment on above: Performed By: #### C BC ####[facility] Aokwjsojor[address] [place], [place] [address]DrAdalberto Pulliam NEUT # 10.4 103/ul Critically high 1.4-6.5 [facility] Comment on above: Performed By: #### C BC ####[facility] Hvdpjmpqjj06[address] [place], [place] [address]DrAdalberto Pulliam Neutrophils/100 WBC (Bld) 78.7 % Critically high 43.0-75.0 [facility] Comment on above: Performed By: #### C BC ####[facility] Ftncfizisl2259 [place] [address]Dr. Garima Pulliam Platelet mean volume (Bld) [Entitic vol] 8.9 fL Critically low 9.5-13.5 [facility] Comment on above: Performed By: #### C BC ####[facility] Mtlzemkyvt7237 [place] [address]Dr. Garima Pulliam PLT 195 103/ul Normal 150-450 [facility] Comment on above: Performed By: #### C BC ####[facility] Ivzgbywylo45[address] [place], [place] [address]Dr. Garima Pulliam RBC 5.08 106/ul Normal 4.70-6.10 [facility] Comment on above: Performed By: #### C BC ####[facility] Tukwgdmiah[address] [place], [place] [address]Dr. Garima Pulliam WBC 13.2 103/ul Critically high 4.0-11.0 [facility] Comment on above: Performed By: #### C BC ####[facility] Dneckgkqor456[address] [place], [place] [address]Dr. Garima Pulliam PROF 14(COMP METB)on 022 Albumin [Mass/Vol] 3.5 g/dL Normal 3.4-5.0 [facility] Comment on above: Performed By: #### C DAVID HSTROPN ####[facility] Pftwbkmmsl1381 [place] [address]Dr. Garima Pulliam Albumin/Globulin [Mass ratio] 1.2 {ratio} Normal [facility] Comment on above: Performed By: #### C RAFAT HERNANDEZTROPN ####[facility] Gqjkbtefvu7809 [place] [address]Dr. Garima Pulliam ALP [Catalytic activity/Vol] 71 U/L Normal 46-116 [facility] Comment on above: Performed By: #### C DAVID HSTROPN ####[facility] Uvjgsevgrp2680 [place] [address]Dr. Garima Pulliam ALT [Catalytic activity/Vol] 37 U/L Normal 16-63 [facility] Comment on above: Performed By: #### C DAVID, HSTROPN ####[facility] Mrpiyjbxzq0059 [place] [address]Dr. Garima Pulliam Anion gap [Moles/Vol] 4.8 mmol/L Normal [facility] Comment on above: Performed By: #### C ADVID, HSTROPN ####[facility] Ngcibkzair[address] [place], [place] [address]Dr. Garima Pulliam AST [Catalytic activity/Vol] 21 U/L Normal 15-37 [facility] Comment on above: Performed By: #### C DAVID, HSTROPN ####[facility] Onsivrdweq9864[address] [place], [place] [address]Dr. Garima Pulliam Bilirubin [Mass/Vol] 0.3 mg/dL Normal 0.2-1.0 [facility] Comment on above: Performed By: #### C DAVID, HSTROPN ####[facility] Dyottksien[address] [place] [address]Dr. Garima Pulliam Calcium [Mass/Vol] 8.9 mg/dL Normal 8.5-10.1 [facility] Comment on above: Performed By: #### C DAVID, HSTROPN ####[facility] Ivngndthry5394 [place] [address]Dr. Garima Pulliam Chloride [Moles/Vol] 106 mmol/L Normal 98-107 [facility] Comment on above: Performed By: #### C DAVID, HSTROPN ####[facility] Gitubdfgei0615 [place] [address]Dr. Garima Pulliam CO2 [Moles/Vol] 29.8 mmol/L Normal 21.0-32.0 [facility] Comment on above: Performed By: #### C DAVID, HSTROPN ####[facility] Mdlpcaawdf2963 [place] [address]Dr. Garima Pulliam Creatinine [Mass/Vol] 0.68 mg/dL Critically low 0.70-1.30 [facility] Comment on above: Performed By: #### C MP, HSTROPN ####[facility] Gwfeesjnjv4675 [place] [address]Dr. Garima Pulliam EGFR-AF CITIZ[place] >60 Normal >=60 [facility] Comment on above: Performed By: #### C MP, HSTROPN ####[facility] Pqzylmlcwo5832 [place] [address]Dr. Chapislan Pulliam EGFR-NON AF CITIZEN OF [place] >60 Normal >=60 [facility] Comment on above: Performed By: #### C MP, HSTROPN ####[facility] Sgzxutvhcm7807 [place] [address]Dr. Garima Pulliam Globulin (S) [Mass/Vol] 2.8 g/dL Normal [facility] Comment on above: Performed By: #### C MP, HSTROPN ####[facility] Evqigsgpqv0024 [place] [address]Dr. Garima Pulliam Glucose [Mass/Vol] 133 mg/dL Critically high 74-[address] [facility] Comment on above: Performed By: #### C MP, HSTROPN ####[facility] Qefjrcnqhj7658 [place] [address]Dr. Chapisrenu Pulliam Potassium [Moles/Vol] 3.6 mmol/L Normal 3.5-5.1 [facility] Comment on above: Performed By: #### C MP, HSTROPN ####[facility] Dovrzlnkkf1574 [place] [address]Dr. Chapisrenu Pulliam Protein [Mass/Vol] 6.3 g/dL Critically low 6.4-8.2 [facility] Comment on above: Performed By: #### C MP, HSTROPN ####[facility] Gwfktwxans[address] [place], [place] [address]Dr. Chapisrenu Pulliam Sodium [Moles/Vol] 137 mmol/L Normal 136-145 [facility] Comment on above: Performed By: #### C MP, HSTROPN ####[facility] Rabmqijtsg[address] [place], [place] [address]Dr. Garima Pulliam Urea nitrogen [Mass/Vol] 15.0 mg/dL Normal 7.0-18.0 [facility] Comment on above: Performed By: #### C DAVID HSTROPN ####[facility] Ymvrfztiuq5276 [place] [address]Dr. Chapisrenu Pulliam Urea nitrogen/Creatinine [Mass ratio] 22.1 mg/mg Normal [facility] Comment on above: Performed By: #### C DAVID HSTROPN ####[facility] Aeuwljkanh3970 [place] [address]Dr. Garima Heraclio TROPONIN, HIGH SENSITIVITYon 09-26-2022 HSTROP 12.8 pg/mL Normal 4.0-76.1 [facility] Comment on above: Result Comment: CUT- OFF POINTS HAVE BEEN ESTABLISHED BASED ON THE FOURTH UNIVERSAL DEFINITIONS OF MYOCARDIALINFARCTION. THE UPPER REFERENCE LIMIT (URL) OF TROPONIN, DEFINED THE 99TH PERCENTILE OFcTnI DISTRIBUTION IN A REFERENCE POPULATION, HAS BEEN CONFIRMED THE DECISION THRESHOLDFOR ND DIAGNOSIS. Performed By: #### C DAVID HSTROPN ####[facility] Wptzqlhzxt9317 [place] [address]Dr. Chapisrenu Pulliam XR CHEST 1 Von 09-26-2022 XR CHEST 1 V Normal [facility] XR CHEST 1 Von 09-16-2022 XR CHEST 1 V Normal [facility] CBC AUTO DIFFon 09-15-2022 BASO # 0.0 103/ul Normal 0.0-0.1 [facility] Comment on above: Performed By: #### C BC ####[facility] Tqurrwdhgm8492 [place] [address]Dr. Garima Heraclio Basophils/100 WBC (Bld) 0.1 % Critically low 0.2-2.0 [facility] Comment on above: Performed By: #### C BC ####[facility] Ythgjywmjo0615 [place] [address]Dr. Garima Pulliam EO # 0.0 103/ul Normal 0.0-0.7 [facility] Comment on above: Performed By: #### C BC ####[facility] Vmmglnhbfo4799 [place] [address]Dr. Garima Pulliam Eosinophils/100 WBC (Bld) 0.1 % Critically low 0.9-7.0 [facility] Comment on above: Performed By: #### C BC ####[facility] Voqdereyrs2641 [place] [address]Dr. Garima Pulliam Erythrocyte distribution width (RBC) [Ratio] 14.1 % Normal 11.0-15.0 [facility] Comment on above: Performed By: #### C BC ####[facility] Fjjjskqejz5[address] [place], [place] [address]Dr. Garima Pulliam Hematocrit (Bld) [Volume fraction] 46.1 % Normal 42.0-54.0 [facility] Comment on above: Performed By: #### C BC ####[facility] Nyglkwwkxy67[address] [place], [place] [address]Dr. Garima Pulliam Hemoglobin (Bld) [Mass/Vol] 15.0 g/dL Normal 14.0-18.0 [facility] Comment on above: Performed By: #### C BC ####[facility] Hednqqvyti[address] [place], [place] [address]Dr. Garima Pulliam IG # 0.03 10e3/ul Normal 0.00-0.03 [facility] Comment on above: Performed By: #### C BC ####[facility] Zhlddnxaxt06[address] [place], [place] [address]Dr. Garima Pulliam IG % 0.3 % Normal 0.0-0.5 [facility] Comment on above: Performed By: #### C BC ####[facility] Yurynqhrvv[address] [place], [place] [address]Dr. Garima Pulliam LYMPH # 0.6 103/ul Critically low 1.2-3.8 [facility] Comment on above: Performed By: #### C BC ####[facility] Bhrmjrxygk[address] [place], [place] [address]Dr. Garima Pulliam Lymphocytes/100 WBC (Bld) 5.8 % Critically low 20.5-60.0 [facility] Comment on above: Performed By: #### C BC ####[facility] Yoerotvddf8621 [place] [id number]. Garima Pulliam MANUAL DIFF REQ NO Normal [facility] Comment on above: Performed By: #### C BC ####[facility] Pfvhujkhii0258 [place] [id number]. Garima Pulliam MCH (RBC) [Entitic mass] 30.2 pg Normal 25.9-34.0 [facility] Comment on above: Performed By: #### C BC ####[facility] Dwdfxyesec0251 [place] [address]Dr. Garima Pulliam MCHC (RBC) [Mass/Vol] 32.5 g/dL Normal 29.9-35.2 [facility] Comment on above: Performed By: #### C BC ####[facility] Kbpzuznpqb4533 [place] [address]Dr. Garima Pulliam MCV (RBC) [Entitic vol] 92.8 fL Normal 80.0-94.0 [facility] Comment on above: Performed By: #### C BC ####[facility] Pzpjvwokxi3965 [place] [address]Dr. Garima Heraclio MONO # 0.3 103/ul Normal 0.3-0.8 [facility] Comment on above: Performed By: #### C BC ####[facility] Wxjgugtilx4028 [place] [id number]. Garima Heraclio Monocytes/100 WBC (Bld) 3.2 % Normal 1.7-12.0 [facility] Comment on above: Performed By: #### C BC ####[facility] Yodqwwvbdg7971 [place] [id number]. Garima Pulliam NEUT # 9.8 103/ul Critically high 1.4-6.5 [facility] Comment on above: Performed By: #### C BC ####[facility] Exripgfjtd7996 [place] [id number]. Garima Pulliam Neutrophils/100 WBC (Bld) 90.5 % Critically high 43.0-75.0 [facility] Comment on above: Performed By: #### C BC ####[facility] Soejmqwhve7750 [place] [id number]. Garima Pulliam Platelet mean volume (Bld) [Entitic vol] 9.4 fL Critically low 9.5-13.5 [facility] Comment on above: Performed By: #### C BC ####[facility] Hakqzscfdo5822 [place] [id number]. Garima Pulliam PLT 208 103/ul Normal 150-450 [facility] Comment on above: Performed By: #### C BC ####[facility] Toxrrpmcwj3829 [place] [address]Dr. Garima Pulliam RBC 4.97 106/ul Normal 4.70-6.10 [facility] Comment on above: Performed By: #### C BC ####[facility] Vubulrlhnn5900 [place] [address]Dr. Garima Pulliam WBC 10.8 103/ul Normal 4.0-11.0 [facility] Comment on above: Performed By: #### C BC ####[facility] Egsbbwwlkb0336 [place] [address]Dr. Garima Pulliam PROF 14(COMP METB)on 022 Albumin [Mass/Vol] 4.0 g/dL Normal 3.4-5.0 [facility] Comment on above: Performed By: #### C MP ####[facility] Ftyqreeghf7674 [place] [address]Dr. Garima Pulliam Albumin/Globulin [Mass ratio] 1.5 {ratio} Normal [facility] Comment on above: Performed By: #### C MP ####[facility] Kftfieztkm0536 [place] [address]Dr. Garima Pulliam ALP [Catalytic activity/Vol] 73 U/L Normal 46-116 [facility] Comment on above: Performed By: #### C MP ####[facility] Lcoadwiusi1915 [place] [address]Dr. Garima Pulliam ALT [Catalytic activity/Vol] 42 U/L Normal 16-63 [facility] Comment on above: Performed By: #### C MP ####[facility] Unmamfusyo5586 [place] [address]Dr. Garima Pulliam Anion gap [Moles/Vol] 9.1 mmol/L Normal [facility] Comment on above: Performed By: #### C MP ####[facility] Oaktgmaxga[address] [place], [place] [address]Dr. Garima Pulliam AST [Catalytic activity/Vol] 28 U/L Normal 15-37 [facility] Comment on above: Performed By: #### C MP ####[facility] Sfpylwstxy[address] [place], [place] [address]Dr. Garima Pulliam Bilirubin [Mass/Vol] 0.6 mg/dL Normal 0.2-1.0 [facility] Comment on above: Performed By: #### C MP ####[facility] Mcpzxiefbp[address] [place], [place] [address]Dr. Garima Pulliam Calcium [Mass/Vol] 8.6 mg/dL Normal 8.5-10.1 [facility] Comment on above: Performed By: #### C MP ####[facility] Blrconvvfg[address] [place], [place] [address]Dr. Garima Pulliam Chloride [Moles/Vol] 105 mmol/L Normal 98-107 [facility] Comment on above: Performed By: #### C MP ####[facility] Zyxopwfwbv[address] [place], [place] [address]Dr. Garima Pulliam CO2 [Moles/Vol] 28.5 mmol/L Normal 21.0-32.0 [facility] Comment on above: Performed By: #### C MP ####[facility] Obhhqcnemq[address] [place], [place] [address]Dr. Garima Heraclio Creatinine [Mass/Vol] 0.78 mg/dL Normal 0.70-1.30 [facility] Comment on above: Performed By: #### C MP ####[facility] Bmcpjjpzxb[address] [place], [place] [address]Dr. Chapisrenu Heraclio EGFR-AF CITIZEN OF THE [place] >60 Normal >=60 [facility] Comment on above: Performed By: #### C MP ####[facility] Ibrjxqahzf[address] [place], [place] [address]Dr. Garima Pulliam EGFR-NON AF CITIZEN OF THE [place] >60 Normal >=60 [facility] Comment on above: Performed By: #### C MP ####[facility] [address]jsr[address] [place] [address]Dr. Garima Pulliam Globulin (S) [Mass/Vol] 2.7 g/dL Normal [facility] Comment on above: Performed By: #### C MP ####[facility] Ibrmsdbwsm0653 [place] [address]Dr. Garima Pulliam Glucose [Mass/Vol] 220 mg/dL Critically high 74-106 T [facility] Comment on above: Performed By: #### C MP ####[facility] Dgqaspeqsv4706 [place] [address]Dr. Garima Pulliam Potassium [Moles/Vol] 3.6 mmol/L Normal 3.5-5.1 [facility] Comment on above: Performed By: #### C MP ####[facility] Hpgyxhsyci[address] [place], [place] [address]Dr. Garima Pulliam Protein [Mass/Vol] 6.7 g/dL Normal 6.4-8.2 [facility] Comment on above: Performed By: #### C MP ####[facility] Dnbwrlrudh71[address] [place], [place] [address]Dr. Garima Pulliam Sodium [Moles/Vol] 139 mmol/L Normal 136-145 [facility] Comment on above: Performed By: #### C MP ####[facility] Narzcvfdcf[address] [place], [place] [address]Dr. Garima Pulliam Urea nitrogen [Mass/Vol] 11.0 mg/dL Normal 7.0-18.0 [facility] Comment on above: Performed By: #### C MP ####[facility] Ozjoaoeatq[address] [place], [place] [address]Dr. Garima Pulliam Urea nitrogen/Creatinine [Mass ratio] 14.1 mg/mg Normal [facility] Comment on above: Performed By: #### C MP ####[facility] Skcsaoaauz406[address] [place], [place] [address]Dr. Garima Pulliam CARDIAC NASH 3-6on 2 CK [Catalytic activity/Vol] 240 U/L Normal 39-308 [facility] Comment on above: Performed By: #### C MREP ####[facility] Bvtxpvhtlz16[address] [place] [address]Dr. Garima Pulliam CK.MB [Mass/Vol] 10.38 ng/mL Critically high <=3.60 [facility] Comment on above: Performed By: #### C MREP ####[facility] Fdwgchvnpu5735 [place] [address]Dr. Garima Pulliam HSTROP 18.5 pg/mL Normal 4.0-76.1 [facility] Comment on above: Result Comment: CUT- OFF POINTS HAVE BEEN ESTABLISHED BASED ON THE FOURTH UNIVERSAL DEFINITIONS OF MYOCARDIALINFARCTION. THE UPPER REFERENCE LIMIT (URL) OF TROPONIN, DEFINED THE 99TH PERCENTILE OFcTnI DISTRIBUTION IN A REFERENCE POPULATION, HAS BEEN CONFIRMED THE DECISION THRESHOLDFOR ND DIAGNOSIS. Performed By: #### C MREP ####[facility] Rhrvfttdqk7119 [place] [address]Dr. Garima Pulliam CK [Catalytic activity/Vol] 257 U/L Normal 39-308 [facility] Comment on above: Performed By: #### C MREP ####[facility] Tpnhujyndn4[address] [place], [place] [address]Dr. Garima Pulliam CK.MB [Mass/Vol] 9.89 ng/mL Critically high <=3.60 [facility] Comment on above: Performed By: #### C MREP ####[facility] Ewonhiytvy5[address] [place], [place] [address]Dr. Garima Pulliam HSTROP 16.9 pg/mL Normal 4.0-76.1 [facility] Comment on above: Result Comment: CUT- OFF POINTS HAVE BEEN ESTABLISHED BASED ON THE FOURTH UNIVERSAL DEFINITIONS OF MYOCARDIALINFARCTION. THE UPPER REFERENCE LIMIT (URL) OF TROPONIN, DEFINED THE 99TH PERCENTILE OFcTnI DISTRIBUTION IN A REFERENCE POPULATION, HAS BEEN CONFIRMED THE DECISION THRESHOLDFOR ND DIAGNOSIS. Performed By: #### C MREP ####[facility] Evutvipwkv5[address] [place] [address]Dr. Garima Heraclio CBC AUTO DIFFon 10-22-2022 BASO # 0.0 103/ul Normal 0.0-0.1 [facility] Comment on above: Performed By: #### C BC ####[facility] Smmmwaqdzo8929 [place] [id number]. Garima Pulliam Basophils/100 WBC (Bld) 0.1 % Critically low 0.2-2.0 [facility] Comment on above: Performed By: #### C BC ####[facility] Pvkkwydglo2739 [place] [address]Dr. Garima Pulliam EO # 0.0 103/ul Normal 0.0-0.7 [facility] Comment on above: Performed By: #### C BC ####[facility] Gsixontokx04[address] [place], [place] [address]Dr. Chapisrenu Heraclio Eosinophils/100 WBC (Bld) 0.0 % Critically low 0.9-7.0 [facility] Comment on above: Performed By: #### C BC ####[facility] Ddmjqckdpp[address] [place], [place] [address]Dr. Garima Pulliam Erythrocyte distribution width (RBC) [Ratio] 13.6 % Normal 11.0-15.0 [facility] Comment on above: Performed By: #### C BC ####[facility] Uewmibxzyn[address] [place], [place] [address]Dr. Garima Pulliam Hematocrit (Bld) [Volume fraction] 48.2 % Normal 42.0-54.0 [facility] Comment on above: Performed By: #### C BC ####[facility] Cjpibuwrto8034[address] [place], [place] [address]Dr. Garima Pulliam Hemoglobin (Bld) [Mass/Vol] 16.0 g/dL Normal 14.0-18.0 [facility] Comment on above: Performed By: #### C BC ####[facility] Bzpvohgrdf[address] [place], [place] [address]Dr. Chapisrenu Heraclio IG # 0.02 10e3/ul Normal 0.00-0.03 [facility] Comment on above: Performed By: #### C BC ####[facility] Iemdnkwaps1199 [place] [id number]. Garima Pulliam IG % 0.3 % Normal 0.0-0.5 [facility] Comment on above: Performed By: #### C BC ####[facility] Bsvudmvmuz3852 [place] [address]Dr. Garima Heraclio LYMPH # 0.5 103/ul Critically low 1.2-3.8 [facility] Comment on above: Performed By: #### C BC ####[facility] Dlfewizrln1612 [place] [address]Dr. Garima Heraclio Lymphocytes/100 WBC (Bld) 7.7 % Critically low 20.5-60.0 [facility] Comment on above: Performed By: #### C BC ####[facility] Vnmtghcgbm[address] [place], [place] [address]Dr. Chapisrenu Pulliam MANUAL DIFF REQ NO Normal [facility] Comment on above: Performed By: #### C BC ####[facility] Oigpphqnzh[address] [place], [place] [address]Dr. Garima Heraclio MCH (RBC) [Entitic mass] 30.6 pg Normal 25.9-34.0 [facility] Comment on above: Performed By: #### C BC ####[facility] Weelvheazu3[address] [place], [place] [address]Dr. Garima Pulliam MCHC (RBC) [Mass/Vol] 33.2 g/dL Normal 29.9-35.2 [facility] Comment on above: Performed By: #### C BC ####[facility] Cpadydiphu[address] [place], [place] [address]Dr. Garima Heraclio MCV (RBC) [Entitic vol] 92.2 fL Normal 80.0-94.0 [facility] Comment on above: Performed By: #### C BC ####[facility] Jbpooxdkur[address] [place], [place] [address]Dr. Garima Pulliam MONO # 0.0 103/ul Critically low 0.3-0.8 [facility] Comment on above: Performed By: #### C BC ####[facility] Zykittauut33[address] [place] [phone]. Garima Pulliam Monocytes/100 WBC (Bld) 0.4 % Critically low 1.7-12.0 [facility] Comment on above: Performed By: #### C BC ####[facility] Etqhbozqmx2344 [place] [phone]. Garima Pulliam NEUT # 6.2 103/ul Normal 1.4-6.5 [facility] Comment on above: Performed By: #### C BC ####[facility] Hpvqzomxwk6652 [place] [address]Dr. Garima Pulliam Neutrophils/100 WBC (Bld) 91.5 % Critically high 43.0-75.0 [facility] Comment on above: Performed By: #### C BC ####[facility] Fofuftfkhw2316 [place] [address]Dr. Garima Pulliam Platelet mean volume (Bld) [Entitic vol] 8.7 fL Critically low 9.5-13.5 [facility] Comment on above: Performed By: #### C BC ####[facility] Wycwaigmsz1566 [place] [address]Dr. Garima Pulliam PLT 179 103/ul Normal 150-450 [facility] Comment on above: Performed By: #### C BC ####[facility] Tpyahpzxpb4302 [place] [phone]. Garima Pulliam RBC 5.23 106/ul Normal 4.70-6.10 [facility] Comment on above: Performed By: #### C BC ####[facility] Cgokbixywb6319 [place] [address]Dr. Garima Pulliam WBC 6.7 103/ul Normal 4.0-11.0 [facility] Comment on above: Performed By: #### C BC ####[facility] Fcctqdboho8888 [place] [address]Dr. Garima Pulliam PROF CHEM 8 (BAS METB)on Anion gap [Moles/Vol] 12.1 mmol/L Normal [facility] Comment on above: Performed By: #### B MP ####[facility] Uhfesjkdpg2972 [place] [phone]. Garima Pulliam Calcium [Mass/Vol] 8.7 mg/dL Normal 8.5-10.1 [facility] Comment on above: Performed By: #### B MP ####[facility] Aihnalffko7375 [place] [phone]. Garima Pulliam Chloride [Moles/Vol] 105 mmol/L Normal 98-107 [facility] Comment on above: Performed By: #### B MP ####[facility] Acrstrmmck1279 [place] [phone]. Garima Pulliam CO2 [Moles/Vol] 25.5 mmol/L Normal 21.0-32.0 [facility] Comment on above: Performed By: #### B MP ####[facility] Zrrbpyytyp8188 [place] [address]Dr. Garima Pulliam Creatinine [Mass/Vol] 0.63 mg/dL Critically low 0.70-1.30 [facility] Comment on above: Performed By: #### B MP ####[facility] Xqgkvsvdgq6949 [place] [address]Dr. Garima Pulliam EGFR-AF CITIZ[place] >60 Normal >=60 [facility] Comment on above: Performed By: #### B MP ####[facility] Cqutchtfpq3080 [place] [address]Dr. Garima Pulliam EGFR-NON AF CITIZEN OF [place] >60 Normal >=60 [facility] Comment on above: Performed By: #### B MP ####[facility] Vuhtzqbkit8056 [place] [address]Dr. Garima Pulliam Glucose [Mass/Vol] 162 mg/dL Critically high 74-[address] [facility] Comment on above: Performed By: #### B MP ####[facility] Oabxdwljyu[address] [place], [place] [address]Dr. Garima Pulliam Potassium [Moles/Vol] 3.6 mmol/L Normal 3.5-5.1 [facility] Comment on above: Performed By: #### B MP ####[facility] Znmnivotwd[address] [place], [place] [address]Dr. Garima Pulliam Sodium [Moles/Vol] 139 mmol/L Normal 136-145 [facility] Comment on above: Performed By: #### B DAVID ####[facility] Wzaqosoczd3141 [place] [address]Dr. Garima Pulliam Urea nitrogen [Mass/Vol] 9.0 mg/dL Normal 7.0-18.0 [facility] Comment on above: Performed By: #### B DAVID ####[facility] Qeczitsdaz2695 [place] [address]Dr. Garima Pulliam Urea nitrogen/Creatinine [Mass ratio] 14.3 mg/mg Normal [facility] Comment on above: Performed By: #### B DAVID ####[facility] Abntierlfn9609 [place] [address]Dr. Chapisrenu Pulliam CARDIAC NASH ADMITon 09-12- 022 CK [Catalytic activity/Vol] 304 U/L Normal 39-308 [facility] Comment on above: Performed By: #### B NANCY HERNANDEZ ####[facility] Vetbqvnoun8503 [place] [address]Dr. Garima Pulliam CK.MB [Mass/Vol] 11.81 ng/mL Critically high <=3.60 [facility] Comment on above: Performed By: #### B NANCY HERNANDEZ ####[facility] Ofdilyiixs1466 [place] [address]Dr. Garima Heraclio HSTROP 13.3 pg/mL Normal 4.0-76.1 [facility] Comment on above: Result Comment: CUT- OFF POINTS HAVE BEEN ESTABLISHED BASED ON THE FOURTH UNIVERSAL DEFINITIONS OF MYOCARDIALINFARCTION. THE UPPER REFERENCE LIMIT (URL) OF TROPONIN, DEFINED THE 99TH PERCENTILE OFcTnI DISTRIBUTION IN A REFERENCE POPULATION, HAS BEEN CONFIRMED THE DECISION THRESHOLDFOR ND DIAGNOSIS. Performed By: #### B NANCY HERNANDEZ ####[facility] Aojdoouiav7743 [place] [address]Dr. Garima Pulliam DORIS 133 ng/mL Critically high 16-96 [facility] Comment on above: Performed By: #### B NANCY HERNANDEZ ####[facility] Beiqogwvjp9038 [place] [address]Dr. Garima Pulliam CBC AUTO DIFFon 09-12-2022 BASO # 0.0 103/ul Normal 0.0-0.1 [facility] Comment on above: Performed By: #### C BC ####[facility] Peyoohvcva[address] [place], [place] [address]Dr. Garima Heraclio Basophils/100 WBC (Bld) 0.2 % Normal 0.2-2.0 [facility] Comment on above: Performed By: #### C BC ####[facility] Aoyvvpzzer[address] [place], [place] [address]Dr. Garima Heraclio EO # 0.2 103/ul Normal 0.0-0.7 [facility] Comment on above: Performed By: #### C BC ####[facility] Ecdzugqssb[address] [place], [place] [address]Dr. Chapisrenu Pulliam Eosinophils/100 WBC (Bld) 1.3 % Normal 0.9-7.0 [facility] Comment on above: Performed By: #### C BC ####[facility] Favzpikyqb[address] [place], [place] [address]Dr. Garima Pulliam Erythrocyte distribution width (RBC) [Ratio] 13.7 % Normal 11.0-15.0 [facility] Comment on above: Performed By: #### C BC ####[facility] Zvobhkoltr[address] [place], [place] [address]Dr. Garima Pulliam Hematocrit (Bld) [Volume fraction] 46.4 % Normal 42.0-54.0 [facility] Comment on above: Performed By: #### C BC ####[facility] Othpunwtys[address] [place], [place] [address]Dr. Garima Pulliam Hemoglobin (Bld) [Mass/Vol] 15.7 g/dL Normal 14.0-18.0 [facility] Comment on above: Performed By: #### C BC ####[facility] Ynaejgaqbb97[address] [place], [place] [address]Dr. Garima Pulliam IG # 0.04 10e3/ul Critically high 0.00-0.03 [facility] Comment on above: Performed By: #### C BC ####[facility] Pjnarjvhrz7074 [place] [id number]. Garima Pulliam IG % 0.3 % Normal 0.0-0.5 [facility] Comment on above: Performed By: #### C BC ####[facility] Lgdzzqjqct1397 [place] [id number]. Garima Pulliam LYMPH # 1.7 103/ul Normal 1.2-3.8 [facility] Comment on above: Performed By: #### C BC ####[facility] Kzcblpspzj4862 [place] [id number]. Garima Pulliam Lymphocytes/100 WBC (Bld) 11.5 % Critically low 20.5-60.0 [facility] Comment on above: Performed By: #### C BC ####[facility] Qqibbslsnd9915 [place] [id number]. Garima Pulliam MANUAL DIFF REQ NO Normal [facility] Comment on above: Performed By: #### C BC ####[facility] Voupmchnje0462 [place] [phone]. Garima Pulliam MCH (RBC) [Entitic mass] 31.0 pg Normal 25.9-34.0 [facility] Comment on above: Performed By: #### C BC ####[facility] Aawegkurhk4662 [place] [phone]. Garima Pulliam MCHC (RBC) [Mass/Vol] 33.8 g/dL Normal 29.9-35.2 [facility] Comment on above: Performed By: #### C BC ####[facility] Glugpbsgze5170 [place] [phone]. Garima Pulliam MCV (RBC) [Entitic vol] 91.7 fL Normal 80.0-94.0 [facility] Comment on above: Performed By: #### C BC ####[facility] Uklihwqqoh3254 [place] [id number]. Garima Heraclio MONO # 0.8 103/ul Normal 0.3-0.8 [facility] Comment on above: Performed By: #### C BC ####[facility] Njgeishbwo5583 [place] [phone]. Garima Pulliam Monocytes/100 WBC (Bld) 5.2 % Normal 1.7-12.0 [facility] Comment on above: Performed By: #### C BC ####[facility] Wcglnymtwc0775 [place] [id number]. Garima Pulliam NEUT # 11.7 103/ul Critically high 1.4-6.5 [facility] Comment on above: Performed By: #### C BC ####[facility] Kltbwdfnsy5769 [place] [phone]. Garima Pulliam Neutrophils/100 WBC (Bld) 81.5 % Critically high 43.0-75.0 [facility] Comment on above: Performed By: #### C BC ####[facility] Uvkakzohmf0502 [place] [address]Dr. Garima Pulliam Platelet mean volume (Bld) [Entitic vol] 8.6 fL Critically low 9.5-13.5 [facility] Comment on above: Performed By: #### C BC ####[facility] Sytqadyzvv5273 [place] [id number]. Garima Pulliam PLT 191 103/ul Normal 150-450 [facility] Comment on above: Performed By: #### C BC ####[facility] Qvrjzypkzy[address] [place], [place] [address]Dr. Garima Pulliam RBC 5.06 106/ul Normal 4.70-6.10 [facility] Comment on above: Performed By: #### C BC ####[facility] Opgvcjnnvt[address] [place], [place] [address]Dr. Garima Pulliam WBC 14.4 103/ul Critically high 4.0-11.0 [facility] Comment on above: Performed By: #### C BC ####[facility] Rngvlwhoer8[address] [place], [place] [address]Dr. Garima Pulliam [facility] SARS-CoV-2 (COVID-19) RNA MARIE+probe Ql (Unsp spec) Not detected Normal NOT DETECTED [facility] Comment on above: Result Comment: When [...] for this test is supported by the [employer] of Health and Human Service's declaration that [...] Performed By: #### C VDTBH ####[facility] Luoamzkvkf[address] [place], [place] [address]Dr. Garima Pulliam LACTATE/LACTIC ACIDon 2021 Lactate [Moles/Vol] 1.0 mmol/L Normal 0.4-1.9 [facility] Comment on above: Performed By: #### L ACT ####[facility] Kurruanzzi[address] [place], [place] [address]Dr. Garima Pulliam PROF CHEM 8 (BAS METB)on Anion gap [Moles/Vol] 11.6 mmol/L Normal [facility] Comment on above: Performed By: #### B NANCY HERNANDEZ ####[facility] Nevensghsl37[address] [place] [address]Dr. Garima Pulliam Calcium [Mass/Vol] 9.2 mg/dL Normal 8.5-10.1 [facility] Comment on above: Performed By: #### B NANCY HERNANDEZ ####[facility] Svtqqpraoi0213 [place] [address]Dr. Garima Pulliam Chloride [Moles/Vol] 105 mmol/L Normal 98-107 [facility] Comment on above: Performed By: #### B MP, CMADM ####[facility] Qkeaitrecl4412 [place] [phone]. Garima Pulliam CO2 [Moles/Vol] 25.9 mmol/L Normal 21.0-32.0 [facility] Comment on above: Performed By: #### B DAVID, CMADM ####[facility] Caqxtccgou2599 [place] [address]Dr. Garima Pulliam Creatinine [Mass/Vol] 0.72 mg/dL Normal 0.70-1.30 [facility] Comment on above: Performed By: #### B DAVID, CMADM ####[facility] Tjmdtetqog8565 [place] [id number]. Garima Pulliam EGFR-AF CITIZ[place] >60 Normal >=60 [facility] Comment on above: Performed By: #### B DAVID, CMADM ####[facility] Hrmxmegmno5486 [place] [address]Dr. Chapisrenu Pulliam EGFR-NON AF CITIZEN OF [place] >60 Normal >=60 [facility] Comment on above: Performed By: #### B DAVID, CMAANA ROSA ####[facility] Biwwwkhjwt3617 [place] [address]Dr. Garima Pulliam Glucose [Mass/Vol] 111 mg/dL Critically high 74-[address] [facility] Comment on above: Performed By: #### B DAVID, CMADM ####[facility] Yxobuixzik7972 [place] [address]Dr. Chapisrenu Pulliam Potassium [Moles/Vol] 3.5 mmol/L Normal 3.5-5.1 [facility] Comment on above: Performed By: #### B DAVID, CMADM ####[facility] Jatvpgeuqi2846 [place] [address]Dr. Chapisrenu Pulliam Sodium [Moles/Vol] 139 mmol/L Normal 136-145 [facility] Comment on above: Performed By: #### B DAVID, CMADM ####[facility] Qumojlpdov2691 [place] [address]Dr. Garima Pulliam Urea nitrogen [Mass/Vol] 7.0 mg/dL Normal 7.0-18.0 [facility] Comment on above: Performed By: #### B DAVID, CMADM ####[facility] Upihjnqzlp0157 [place], [place] [address]Cx. Garima Pulliam Urea nitrogen/Creatinine [Mass ratio] 9.7 mg/mg Normal [facility] Comment on above: Performed By: #### B MP, CMADM ####[facility] Qonvuscpeg7714 [place], [place] [address]Uc. Garima Pulliam XR CHEST 1 Von 09-12-2022 XR CHEST 1 V Normal [facility] Encounters Encounter Date Encounter Type Care Provider [...] Facility:H1 Payers Date Payer Category Payer Unknown [id number] 1960 Medicaid [id number] 1960 Unknown [id number] 1960 Unknown [id number] 1954 Unknown [id number] 2.16.84 0.1.814513.3.579.2.593 1954 Unknown [id number] 2.16.84 0.1.395149.3.579.2.593 1954 Unknown [id number] 2.16.84 0.1.061560.3.579.2.593 1954 Unknown [id number] 2.16.84 0.1.067426.3.579.2.593 1954 Unknown [id number] 2.16.84 0.1.568263.3.579.2.593 1954 Unknown [id number] 2.16.84 0.1.337886.3.579.2.593 1954 Unknown [id number] 2.16.84 0.1.605995.3.579.2.593 1954 Unknown [id number] 2.16.84 0.1.022891.3.579.2.593 1954 Unknown [id number] 2.16.84 0.1.523716.3.579.2.593 1954 Unknown [id number] 2.16.84 0.1.353821.3.579.2.593 1954 Unknown [id number] 2.16.84 0.1.045843.3.579.2.593 1954 Unknown [id number] 2.16.84 0.1.099586.3.579.2.593 1954 Unknown [id number] 2.16.84 0.1.135067.3.579.2.593 1954 Unknown [id number] 2.16.84 0.1.719232.3.579.2.593 1954 Unknown [id number] 2.16.84 0.1.387459.3.579.2.593 1954 Unknown [id number] 2.16.84 0.1.768908.3.579.2.593 1954 Unknown [id number] 2.16.84 0.1.986521.3.579.2.593 1954 Unknown [id number] 2.16.84 0.1.486005.3.579.2.593 1954 Unknown [id number] 2.16.84 0.1.321603.3.579.2.593 1954 Unknown [id number] 2.16.84 0.1.683982.3.579.2.593 Summary Purpose Family History No Family History Records Found Advance Directives No Advanced Directives Records Found Additional Source Comments (unrecognized sect ion and content) No Status Records Found INFORMATION SOURCE (unrecogn ized section and content) DATE CREATED AUTHOR 04/08/[address] [facility] FOR RECORDS PERTAINING TO PATIENTS WHO [...] BE BASED ON THE PRIMARY CLINICAL RECORDS. [facility]. provides no warranty or guarantee of the accuracy or completeness of information in this document.
[2024-08-25 22:49] VITALS: BP 174/76; PULSE 68; TEMP 36.6; O2SAT 94; BMI 23.7
[2024-08-25] MEDS: ALBUTEROL SULFATE 200 PUFF/6.7 GM INHALER IH (23:28)
[2024-08-25] MEDS: IPRATROPIUM/ALBUTEROL SULFATE 3 ML AMPUL.NEB IH ×2 (23:28→23:30)
--- NOTE | 2024-08-25 23:44 | ED_ITS ---
HPI - SOB/Dyspnea General Chief Complaint: Shortness of Breath/Dyspnea Stated Complaint: SOB Time Seen by Provider: 08/25/24 22:56 Source: patient Mode of arrival: walk-in Limitations: no limitations History of Present Illness HPI Narrative: This 69-year-old male with a history of COPD who is well-known to this emergency department presents for evaluation of shortness of breath. He is currently out of his albuterol MDI and his DuoNeb treatment. His nebulizer machine is functional but he is out of his medications. He denies any fever. He denies any chest pain. He denies any dizziness or syncope. He has not have any abdominal pain or lower extremity pain or swelling. Related Data Home Medications ?Medication ?Instructions ?Recorded ?Confirmed albuterol sulfate 90 mcg/actuation 2 inh inhalation Q6H PRN shortness 03/13/24 08/25/24 aerosol inhaler of breath or wheezing Previous Rx's ?Medication ?Instructions ?Recorded losartan 100 mg tablet 100 mg PO DAILY #30 tabs 12/27/23 albuterol sulfate 2.5 mg/3 mL 2.5 mg (3 mL) inhalation Q6H PRN 05/26/24 (0.083 %) solution for nebulization shortness of breath or wheezing #90 mL loratadine 10 mg tablet (Claritin) 10 mg PO DAILY #20 tabs 05/30/24 albuterol sulfate 2.5 mg/3 mL 2.5 mg (3 mL) inhalation Q6H PRN 08/07/24 (0.083 %) solution for nebulization shortness of breath or wheezing #90 mL albuterol sulfate 90 mcg/actuation 2 inh inhalation Q4H PRN shortness 08/07/24 aerosol inhaler of breath or wheezing #8.5 grams Allergies Allergy/AdvReac Type Severity Reaction Status Date / Time No Known Drug Allergies Allergy Verified 08/25/24 22:49 Review of Systems ROS Status of ROS 10 or more systems reviewed and unremark able except as noted in history and below [facility] Medical History (Updated 08/26/24 @ 00:09 by Teresa Ag MD) Hypokalemia ?E87.6 - Hypokalemia (ICD-10) New onset type 2 diabetes mellitus ?E11.9 - Type 2 diabetes mellitus without complications (ICD-10) Lower extremity edema ?R60.0 - Localized edema (ICD-10) Edema ?R60.9 - Edema, unspecified (ICD-10) Acute hyperglycemia ?R73.9 - Hyperglycemia, unspecified (ICD-10) Tobacco abuse ?Z72.0 - Tobacco use (ICD-10) HTN (hypertension) ?I10 - Essential (primary) hypertension (ICD-10) Community acquired pneumonia ?J18.9 - Pneumonia, unspecified organism (ICD-10) Chronic obstructive pulmonary disease ?J44.9 - Chronic obstructive pulmonary disease, unspecified (ICD-10) Acute exacerbation of chronic obstructive pulmonary disease (COPD) ?J44.1 - Chronic obstructive pulmonary disease with (acute) exacerbation (ICD-10) RLL pneumonia ?J18.9 - Pneumonia, unspecified organism (ICD-10) COPD (chronic obstructive pulmonary disease) ?J44.9 - Chronic obstructive pulmonary disease, unspecified (ICD-10) Surgical History (Updated 01/29/24 @ 06:45 by Latonia Martin RN) Hx of tonsillectomy ?Z90.89 - Acquired absence of other organs (ICD-10) Family History (Updated 12/25/23 @ 21:28 by Kym Ordaz) Mother Family history of cancer Family history of hypertension Father Family history of cancer Social History Within the past year, how often did you have a drink containing alcohol: 4 or more times a week Within the past year, how many standard drinks containing alcohol did you have on a typical day: 3 or 4 Within the past year, how often did you have six or more drinks on one occasion: less than monthly Total score: 3 Score interpretation: A score of 4 or more indicates drinking is likely to affect patient's safety. Smoking status: Current every day smoker Non-prescribed substance use: cannabis (any form) Previous occupational history: retired Highest level of school completed/degree received: high school graduate Are you now , , , , never or living with a partner: In a typical week, how many times do you talk on the telephone with family, friends, or neighbors: twice per week How often do you get together with friends or relatives: once per week How often do you attend islam or caodaism services: never Do you belong to any clubs or organizations such as islam groups unions, fraternal or athletic groups, or school groups: no Total score: 1 Score interpretation: A score of less than or equal to 1 indicates the most socially isolated. Little interest or pleasure in doing things: not at all Feeling down, depressed, or hopeless: not at all Feel stressed/tense/nervous/anxious/difficulty sleeping: not at all Do you think of yourself as: straight/heterosexual Gender Identity: male Exam Narrative Exam Narrative: Vital signs and Nursing Notes reviewed: Patient is afebrile, he has a normal pulse, blood pressure is mildly elevated at 174/76 and he is tachypneic with respiratory of 22, he is at his baseline with pulse ox of 94% on room air General: Awake, alert, oriented, no acute distress, sitting in a chair drinking coffee and watching television, no respiratory distress, he is speaking in complete sentences HEENT: Normocephalic atraumatic, mucous membranes are moist and pink, eyes are clear, normal conjunctiva, vision is grossly intact Chest: Lungs are clear with coarse breath sounds, occasional rhonchi are noted that clear with the patient's coughing, no respiratory distress CVS: Regular rate and rhythm S1-S2, no murmurs rubs or gallops, pulses are brisk and equal bilaterally ABD: Soft, nondistended, nontender, no rebound guarding or rigidity, bowel sounds are normal, no pulsatile masses appreciated Extremities: Moving all extremities, no lower extremity tenderness or swelling noted, negative Homans' sign, pulses are brisk and equal bilaterally Skin: Normal in appearance without rash,pallor, petechiae or purpura Neuro: No focal deficits Constitutional Vital Signs, click to edit/add: Last Vital Signs Temp 97.9 F 08/25/24 22:49 Pulse 68 08/25/24 22:49 Resp 22 H 08/25/24 22:49 BP 174/76 H 08/25/24 22:49 Pulse Ox 94 L 08/25/24 22:49 O2 Del Method Room Air 08/25/24 22:49 Course Vital Signs Vital signs: Vital Signs Temperature 97.9 F 08/25/24 22:49 Pulse Rate 68 08/25/24 22:49 Respiratory Rate 22 H 08/25/24 22:49 Blood Pressure 174/76 H 08/25/24 22:49 Pulse Oximetry 94 L 08/25/24 22:49 Oxygen Delivery Method Room Air 08/25/24 22:49 Temperature 97.9 F 08/25/24 22:49 Pulse Rate 68 08/25/24 22:49 Respiratory Rate 22 H 08/25/24 22:49 Blood Pressure 174/76 H 08/25/24 22:49 Pulse Oximetry 94 L 08/25/24 22:49 Oxygen Delivery Method Room Air 08/25/24 22:49 MDM - SOB/Dyspnea MDM Narrative Medical decision making narrative: This 69-year-old male who is well-known to this emergency department and has a history of tobacco use and COPD presents for evaluation of shortness of breath. He is currently out of his albuterol MDI and his nebulizer medication and request refills for these medications. He denies any fever. He denies any chest pain or shortness of breath. He is well-appearing, drinking coffee and watching television. His lungs are coarse. He did not feel that he needed any steroids or antibiotics. He was given a DuoNeb treatment in the emergency department and shortly after requested to be discharged home. I did not feel that labs or x-rays were indicated. The patient is well versed in his treatment and emergency department and did not feel that a cardiac workup was indicated at this time. He was discharged home with an extra Nebules of DuoNeb medication and albuterol MDI and prescriptions for DuoNeb, albuterol inhaler and prednisone. He was encouraged, as always, to quit smoking but did not verbalize any indication that he was interested in tobacco cessation. Discharge Plan Discharge Chief Complaint: Shortness of Breath/Dyspnea Clinical Impression: COPD (chronic obstructive pulmonary disease), Medication refill Patient Disposition: Home, Self-Care Prescriptions / Home Meds: No Action losartan 100 mg tablet 100 mg PO DAILY Qty: 30 11RF albuterol sulfate 90 mcg/actuation HFA aerosol inhaler 2 inh inhalation Q6H PRN (Reason: shortness of breath or wheezing) albuterol sulfate 2.5 mg /3 mL (0.083 %) solution for nebulization 2.5 mg inhalation Q6H PRN (Reason: shortness of breath or wheezing) Qty: 90 0RF albuterol sulfate 2.5 mg /3 mL (0.083 %) solution for nebulization 2.5 mg inhalation Q6H PRN (Reason: shortness of breath or wheezing) Qty: 90 0RF albuterol sulfate 90 mcg/actuation HFA aerosol inhaler 2 inh inhalation Q4H PRN (Reason: shortness of breath or wheezing) Qty: 8.5 0RF loratadine [Claritin] 10 mg tablet 10 mg PO DAILY Qty: 20 0RF Print Language: Portuguese Referrals: SERG DUENAS [Primary Care Provider] - 1 week Discharge Date/Time: 08/26/24 00:15
== END 2024-08-26 00:15 | disposition home or self-care (01) ==
LOC: ER 22:44
PROVIDERS: Emergency Provider Emergency Medicine
DX: J44.9 Chronic obstructive pulmonary disease, unspecified (principal); Z76.0 Encounter for issue of repeat prescription; F17.200 Nicotine dependence, unspecified, uncomplicated
CPT/HCPCS: 94640; 99284

== ENCOUNTER 2024-09-04 15:35 | Emergency (ER) | payer MEDICARE, SELFPAY ==
[2024-09-04 15:38] VITALS: BP 173/103; PULSE 76; TEMP 36.5; O2SAT 94; BMI 23.7
--- OUTSIDE RECORDS SUMMARY | 2024-09-04 15:42 | XMS_ITS | CCD ---
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 Garima Pulliam Basophils/100 WBC (Bld) 0.3 % Normal 0.2-2.0 [facility] Comment on above: Performed By: #### C BC ####[facility] Vqhxasvqgl[address] [place] [address]DrAdalberto Pulliam EO # 0.3 103/ul Normal 0.0-0.7 [facility] Comment on above: Performed By: #### C BC ####[facility] Avplyavtos[address] [place], [place] [address]Dr. Garima Pulliam Eosinophils/100 WBC (Bld) 2.8 % Normal 0.9-7.0 [facility] Comment on above: Performed By: #### C BC ####[facility] Hwtqcxckqj[address] [place] [address]Dr. Garima Pulliam Erythrocyte distribution width (RBC) [Ratio] 13.4 % Normal 11.0-15.0 [facility] Comment on above: Performed By: #### C BC ####[facility] Qzofwlwiks46[address] [place] [address]Dr. Garima Pulliam Hematocrit (Bld) [Volume fraction] 45.7 % Normal 42.0-54.0 [facility] Comment on above: Performed By: #### C BC ####[facility] Zbyjvldpas[address] [place] [address]Dr. Garima Pulliam Hemoglobin (Bld) [Mass/Vol] 15.2 g/dL Normal 14.0-18.0 [facility] Comment on above: Performed By: #### C BC ####[facility] Doglsmlkcx28[address] [place] [address]Dr. Garima Pulliam IG # 0.02 10e3/ul Normal 0.00-0.03 [facility] Comment on above: Performed By: #### C BC ####[facility] Ksmjlhvygz[address] [place] [address]Dr. Garima Pulliam IG % 0.2 % Normal 0.0-0.5 [facility] Comment on above: Performed By: #### C BC ####[facility] Tsgunwimxs[address] [place] [address]Dr. Garima Pulliam LYMPH # 2.1 103/ul Normal 1.2-3.8 [facility] Comment on above: Performed By: #### C BC ####[facility] Sscmyddgjk4[address] [place] [address]Dr. Garima Pulliam Lymphocytes/100 WBC (Bld) 23.7 % Normal 20.5-60.0 [facility] Comment on above: Performed By: #### C BC ####[facility] Ihwxlupwgc[address] [place] [address]Dr. Garima Heraclio MANUAL DIFF REQ NO Normal [facility] Comment on above: Performed By: #### C BC ####[facility] Waxzaqulmy[address] [place] [address]Dr. Garima Pulliam MCH (RBC) [Entitic mass] 30.4 pg Normal 25.9-34.0 [facility] Comment on above: Performed By: #### C BC ####[facility] Rzszllrwfy[address] [place] [address]Dr. Garima Heraclio MCHC (RBC) [Mass/Vol] 33.3 g/dL Normal 29.9-35.2 [facility] Comment on above: Performed By: #### C BC ####[facility] Fobcdllrnk[address] [place], [place] [address]Dr. Chapisrenu Pulliam MCV (RBC) [Entitic vol] 91.4 fL Normal 80.0-94.0 [facility] Comment on above: Performed By: #### C BC ####[facility] Ubluaxkieu[address] [place], [place] [address]Dr. Garima Heraclio MONO # 0.7 103/ul Normal 0.3-0.8 [facility] Comment on above: Performed By: #### C BC ####[facility] [address]frqhvvw[address] [place], [place] [address]Dr. Chapisrenu Pulliam Monocytes/100 WBC (Bld) 8.3 % Normal 1.7-12.0 [facility] Comment on above: Performed By: #### C BC ####[facility] Uuvfwekwfg45[address] [place] [address]Dr. Chapisrenu Heraclio NEUT # 5.8 103/ul Normal 1.4-6.5 [facility] Comment on above: Performed By: #### C BC ####[facility] Uzftkftnsw[address] [place], [place] [address]Dr. Garima Pulliam Neutrophils/100 WBC (Bld) 64.7 % Normal 43.0-75.0 [facility] Comment on above: Performed By: #### C BC ####[facility] Zzrfavdlcq69[address] [place] [address]Dr. Garima Pulliam Platelet mean volume (Bld) [Entitic vol] 8.6 fL Critically low 9.5-13.5 [facility] Comment on above: Performed By: #### C BC ####[facility] Vikmzclheg7[address] [place] [address]Dr. Garima Pulliam PLT 230 103/ul Normal 150-450 [facility] Comment on above: Performed By: #### C BC ####[facility] Dlvfjsfpyr77[address] [place] [address]Dr. Chapisrenu Heraclio RBC 5.00 106/ul Normal 4.70-6.10 [facility] Comment on above: Performed By: #### C BC ####[facility] Dljljfyvsb7822 [place] [address]Dr. Garima Heraclio WBC 9.0 103/ul Normal 4.0-11.0 [facility] Comment on above: Performed By: #### C BC ####[facility] Pnslygrjhx7[address] [place] [address]Dr. Garima Pulliam MAGNESIUMon 04-04-2023 Magnesium [Mass/Vol] 1.8 mg/dL Normal 1.8-2.4 [facility] Comment on above: Performed By: #### M G ####[facility] Zrqsfyslpw[address] [place] [address]Dr. Chapisrenu Pulliam PROF 14(COMP METB)on 023 Albumin [Mass/Vol] 3.8 g/dL Normal 3.4-5.0 [facility] Comment on above: Performed By: #### C MP ####[facility] Vekmdsczli[address] [place] [address]Dr. Garima Pulliam Albumin/Globulin [Mass ratio] 1.2 {ratio} Normal [facility] Comment on above: Performed By: #### C MP ####[facility] Dkuootcvzj1638 [place] [address]Dr. Garima Heraclio ALP [Catalytic activity/Vol] 84 U/L Normal 46-116 [facility] Comment on above: Performed By: #### C MP ####[facility] Jeznwmcuzx1070 [place] [phone]. Garima Pulliam ALT [Catalytic activity/Vol] 31 U/L Normal 16-63 [facility] Comment on above: Performed By: #### C MP ####[facility] Utksrcrtrl0626 [place] [address]Dr. Garima Pulliam Anion gap [Moles/Vol] 12.2 mmol/L Normal [facility] Comment on above: Performed By: #### C MP ####[facility] Tnloxvwlsz5666 [place] [address]Dr. Garima Pulliam AST [Catalytic activity/Vol] 23 U/L Normal 15-37 [facility] Comment on above: Performed By: #### C MP ####[facility] Hvpkkzxovy[address] [place], [place] [address]Dr. Garima Pulliam Bilirubin [Mass/Vol] 0.5 mg/dL Normal 0.2-1.0 [facility] Comment on above: Performed By: #### C MP ####[facility] Ogskllpaql8[address] [place], [place] [address]Dr. Garima Pulliam Calcium [Mass/Vol] 9.2 mg/dL Normal 8.5-10.1 [facility] Comment on above: Performed By: #### C MP ####[facility] Alijtnumiu479[address] [place], [place] [address]Dr. Garima Pulliam Chloride [Moles/Vol] 103 mmol/L Normal 98-107 [facility] Comment on above: Performed By: #### C MP ####[facility] Ivudydffap9721 [place] [address]Dr. Garima Pulliam CO2 [Moles/Vol] 28.5 mmol/L Normal 21.0-32.0 [facility] Comment on above: Performed By: #### C MP ####[facility] Gwgrkndwer7[address] [place], [place] [address]Dr. Garima Pulliam Creatinine [Mass/Vol] 0.74 mg/dL Normal 0.70-1.30 [facility] Comment on above: Performed By: #### C MP ####[facility] Vkxnfnghlg8532 [place] [phone]. Garima Pulliam EGFR-AF LEBANESE >60 Normal >=60 [facility] Comment on above: Performed By: #### C MP ####[facility] Elqfqrerfr40[address] [place] [address]Dr. Garima Heraclio EGFR-NON AF LEBANESE >60 Normal >=60 [facility] Comment on above: Performed By: #### C MP ####[facility] Mmcljgstpn5345 [place] [phone]. Garima Heraclio Globulin (S) [Mass/Vol] 3.1 g/dL Normal [facility] Comment on above: Performed By: #### C MP ####[facility] Oblcatzpxy[address] [place], [place] [address]Dr. Garima Heraclio Glucose [Mass/Vol] 93 mg/dL Normal 74-106 [facility] Comment on above: Performed By: #### C MP ####[facility] Zmuqqpmgud[address] [place], [place] [address]Dr. Garima Heraclio Potassium [Moles/Vol] 3.7 mmol/L Normal 3.5-5.1 [facility] Comment on above: Performed By: #### C MP ####[facility] Cnoawbygil[address] [place], [place] [address]Dr. Garima Heraclio Protein [Mass/Vol] 6.9 g/dL Normal 6.4-8.2 [facility] Comment on above: Performed By: #### C MP ####[facility] Ajuyrgdukd64[address] [place], [place] [address]Dr. Garima Heraclio Sodium [Moles/Vol] 140 mmol/L Normal 136-145 [facility] Comment on above: Performed By: #### C MP ####[facility] Wwuzrglgtv[address] [place], [place] [address]Dr. Garima Pulliam Urea nitrogen [Mass/Vol] 8.0 mg/dL Normal 7.0-18.0 [facility] Comment on above: Performed By: #### C MP ####[facility] Sasvkhvtkl[address] [place], [place] [address]Dr. Garima Pulliam Urea nitrogen/Creatinine [Mass ratio] 10.8 mg/mg Normal [facility] Comment on above: Performed By: #### C DAVID ####[facility] Szhhlnflkz4[address] [place] [address]Dr. Garima Pulliam AMMONIAon 03-30-2023 Ammonia (P) [Moles/Vol] 11 umol/L Normal 11-32 [facility] Comment on above: Performed By: #### A MM ####[facility] Bornrkjady[address] [place], [place] [address]Dr. Garima Pulliam CARDIAC NASH ADMITon 023 CK [Catalytic activity/Vol] 232 U/L Normal 39-308 [facility] Comment on above: Performed By: #### C NANCY HERNANDEZ ####[facility] Eapstarokd39[address] [place] [address]Dr. Chapisrenu Pulliam CK.MB [Mass/Vol] 4.83 ng/mL Critically high <=3.60 [facility] Comment on above: Performed By: #### C NANCY HERNANDEZ ####[facility] Qkkswogsqf[address] [place], [place] [address]Dr. Garima Pulliam HSTROP 10.5 pg/mL Normal 4.0-76.1 [facility] Comment on above: Result Comment: CUT- OFF POINTS HAVE BEEN ESTABLISHED BASED ON THE FOURTH UNIVERSAL DEFINITIONS OF MYOCARDIALINFARCTION. THE UPPER REFERENCE LIMIT (URL) OF TROPONIN, DEFINED THE 99TH PERCENTILE OFcTnI DISTRIBUTION IN A REFERENCE POPULATION, HAS BEEN CONFIRMED THE DECISION THRESHOLDFOR [place] DIAGNOSIS. Performed By: #### C NANCY HERNANDEZ ####[facility] Yymtwctkyc[address] [place], [place] [address]Dr. Garima Heraclio DORIS 79 ng/mL Normal 16-96 [facility] Comment on above: Performed By: #### C NANCY HERNANDEZ ####[facility] Tlsdaiecuh[address] [place], [place] [address]Dr. Garima Heraclio CBC AUTO DIFFon 03-30-2023 BASO # 0.0 103/ul Normal 0.0-0.1 [facility] Comment on above: Performed By: #### C BC ####[facility] Lfrgmfmmbs9537 [place] [phone]. Garima Pulliam Basophils/100 WBC (Bld) 0.1 % Critically low 0.2-2.0 [facility] Comment on above: Performed By: #### C BC ####[facility] Lumboffnqn5921 [place] [phone]. Garima Pulliam EO # 0.3 103/ul Normal 0.0-0.7 [facility] Comment on above: Performed By: #### C BC ####[facility] Bxtmxjrppy[address] [place], [place] [address]Dr. Garima Pulliam Eosinophils/100 WBC (Bld) 3.3 % Normal 0.9-7.0 [facility] Comment on above: Performed By: #### C BC ####[facility] Zhmlwuluqa[address] [place], [place] [address]Dr. Garima Pulliam Erythrocyte distribution width (RBC) [Ratio] 13.5 % Normal 11.0-15.0 [facility] Comment on above: Performed By: #### C BC ####[facility] [address]vmb[address]vx[address] [place], [place] [address]Dr. Garima Pulliam Hematocrit (Bld) [Volume fraction] 42.9 % Normal 42.0-54.0 [facility] Comment on above: Performed By: #### C BC ####[facility] J[address]hwqxrs[address] [place], [place] [address]Dr. Garima Pulliam Hemoglobin (Bld) [Mass/Vol] 13.9 g/dL Critically low 14.0-18.0 [facility] Comment on above: Performed By: #### C BC ####[facility] Qsiamgkhda7432 [place] [phone]. Garima Pulliam IG # 0.01 10e3/ul Normal 0.00-0.03 [facility] Comment on above: Performed By: #### C BC ####[facility] W[address]uikdzix[address] [place], [place] [address]Dr. Garima Pulliam IG % 0.1 % Normal 0.0-0.5 [facility] Comment on above: Performed By: #### C BC ####[facility] Ydgtugtxeh4421 [place] [phone]. Garima Pulliam LYMPH # 1.7 103/ul Normal 1.2-3.8 [facility] Comment on above: Performed By: #### C BC ####[facility] Iywvnmfeil5514 [place], [place] [address]Gv. Garima Pulliam Lymphocytes/100 WBC (Bld) 22.8 % Normal 20.5-60.0 [facility] Comment on above: Performed By: #### C BC ####[facility] Mxwrituxct4880 [place] [phone]. Garima Heraclio MANUAL DIFF REQ NO Normal [facility] Comment on above: Performed By: #### C BC ####[facility] Xbqaxnhuvx1490 [place] [phone]. Garima Heraclio MCH (RBC) [Entitic mass] 30.5 pg Normal 25.9-34.0 [facility] Comment on above: Performed By: #### C BC ####[facility] Esxvvugigf6511 [place] [phone]. Garima Pulliam MCHC (RBC) [Mass/Vol] 32.4 g/dL Normal 29.9-35.2 [facility] Comment on above: Performed By: #### C BC ####[facility] Lvgkkxnxey2697 [place] [phone]. Garima Heraclio MCV (RBC) [Entitic vol] 94.1 fL Critically high 80.0-94.0 [facility] Comment on above: Performed By: #### C BC ####[facility] Afmwmbmrna0325 [place] [phone]. Garima Heraclio MONO # 0.7 103/ul Normal 0.3-0.8 [facility] Comment on above: Performed By: #### C BC ####[facility] Otsksfyxbx9043 [place] [phone]. Garima Heraclio Monocytes/100 WBC (Bld) 8.6 % Normal 1.7-12.0 [facility] Comment on above: Performed By: #### C BC ####[facility] Zmkkurncda7370 [place] [phone]. Garima Pulliam NEUT # 4.9 103/ul Normal 1.4-6.5 [facility] Comment on above: Performed By: #### C BC ####[facility] Qftlltyvzk8781 [place] [phone]. Garima Pulliam Neutrophils/100 WBC (Bld) 65.1 % Normal 43.0-75.0 [facility] Comment on above: Performed By: #### C BC ####[facility] Gysvgohcwh0290 [place] [phone]. Garima Pulliam Platelet mean volume (Bld) [Entitic vol] 8.5 fL Critically low 9.5-13.5 [facility] Comment on above: Performed By: #### C BC ####[facility] Snybmexjdx3099 [place] [phone]. Garima Pulliam PLT 219 103/ul Normal 150-450 [facility] Comment on above: Performed By: #### C BC ####[facility] Qxaajygnjh8242 [place] [phone]. Garima Pulliam RBC 4.56 106/ul Critically low 4.70-6.10 [facility] Comment on above: Performed By: #### C BC ####[facility] Ltjagciapn0933 [place] [phone]. Garima Pulliam WBC 7.6 103/ul Normal 4.0-11.0 [facility] Comment on above: Performed By: #### C BC ####[facility] Sfrwzodwgn6228 [place] [phone]. Garima Pulliam LACTATE/LACTIC ACIDon 2022 Lactate [Moles/Vol] 1.2 mmol/L Normal 0.4-2.0 [facility] Comment on above: Performed By: #### L ACT ####[facility] Ozqpixxtru2034 [place] [phone]. Garima Pulliam MAGNESIUMon 03-30-2023 Magnesium [Mass/Vol] 1.8 mg/dL Normal 1.8-2.4 [facility] Comment on above: Performed By: #### M G ####[facility] Zejcuvbyao[address] [place] [address]Dr. Garima Pulliam PROF 14(COMP METB)on 023 Albumin [Mass/Vol] 3.5 g/dL Normal 3.4-5.0 [facility] Comment on above: Performed By: #### C DAVID, CMAANA ROSA ####[facility] Xnnropwnod[address] [place] [address]Dr. Garima Pulliam Albumin/Globulin [Mass ratio] 1.2 {ratio} Normal [facility] Comment on above: Performed By: #### C DAVID, CMAANA ROSA ####[facility] Tbkuddyyca98[address] [place] [address]Dr. Garima Pulliam ALP [Catalytic activity/Vol] 85 U/L Normal 46-116 [facility] Comment on above: Performed By: #### C DAVID, CMAANA ROSA ####[facility] [address]ubylghd[address] [place], [place] [address]Dr. Garima Pulliam ALT [Catalytic activity/Vol] 29 U/L Normal 16-63 [facility] Comment on above: Performed By: #### C DAVID, CMAANA ROSA ####[facility] Tcnizaoctu3827 [place] [address]Dr. Garima Pulliam Anion gap [Moles/Vol] 8.0 mmol/L Normal [facility] Comment on above: Performed By: #### C DAVID, CMAANA ROSA ####[facility] Xxdpyvzwmr9800 [place] [address]Dr. Garima Pulliam AST [Catalytic activity/Vol] 18 U/L Normal 15-37 [facility] Comment on above: Performed By: #### C DAVID, CMADM ####[facility] Hzdpafdutk9719 [place] [address]Dr. Garima Pulliam Bilirubin [Mass/Vol] 0.4 mg/dL Normal 0.2-1.0 [facility] Comment on above: Performed By: #### C DAVID, CMADM ####[facility] Ocnxwznivd3207 [place] [address]Dr. Garima Pulliam Calcium [Mass/Vol] 8.8 mg/dL Normal 8.5-10.1 [facility] Comment on above: Performed By: #### C DAVID, NANCY ####[facility] Jghfxetgru9019 [place] [address]Dr. Chapisrenu Pulliam Chloride [Moles/Vol] 108 mmol/L Critically high 98-107 [facility] Comment on above: Performed By: #### C DAVID, NANCY ####[facility] Xagkchwjzo7453 [place] [address]Dr. Garima Pulliam CO2 [Moles/Vol] 29.6 mmol/L Normal 21.0-32.0 [facility] Comment on above: Performed By: #### C NANCY HERNANDEZ ####[facility] Ffrbyurbaz[address] [place], [place] [address]Dr. Garima Pulliam Creatinine [Mass/Vol] 0.77 mg/dL Normal 0.70-1.30 [facility] Comment on above: Performed By: #### C NANCY HERNANDEZ ####[facility] Xqljwcduav[address] [place], [place] [address]Dr. Garima Heraclio EGFR-AF LEBANESE >60 Normal >=60 [facility] Comment on above: Performed By: #### C NANCY HERNANDEZ ####[facility] Nagorgvbdp94[address] [place], [place] [address]Dr. Garima Heraclio EGFR-NON AF LEBANESE >60 Normal >=60 [facility] Comment on above: Performed By: #### C NANCY HERNANDEZ ####[facility] Lyqmudyemr34[address] [place] [address]Dr. Garima Pulliam Globulin (S) [Mass/Vol] 2.8 g/dL Normal [facility] Comment on above: Performed By: #### C NANCY HERNANDEZ ####[facility] Ugcdcecukb9186 [place] [address]Dr. Garima Pulliam Glucose [Mass/Vol] 207 mg/dL Critically high 74-106 [facility] Comment on above: Performed By: #### C NANCY HERNANDEZ ####[facility] Pjpxiflssy[address] [place], [place] [address]Dr. Garima Pulliam Potassium [Moles/Vol] 4.6 mmol/L Normal 3.5-5.1 [facility] Comment on above: Performed By: #### C DAVID, NANCY ####[facility] Iwgjozzzis8214 [place] [address]Dr. Garima Pulliam Protein [Mass/Vol] 6.3 g/dL Critically low 6.4-8.2 [facility] Comment on above: Performed By: #### C DAVID, NANCY ####[facility] Vdbxsqnisc1483 [place] [address]Dr. Garima Pulliam Sodium [Moles/Vol] 141 mmol/L Normal 136-145 [facility] Comment on above: Performed By: #### C DAVID, NANCY ####[facility] Nbrybcayul7706 [place] [address]Dr. Garima Pulliam Urea nitrogen [Mass/Vol] 9.0 mg/dL Normal 7.0-18.0 [facility] Comment on above: Performed By: #### C DAVID, NANCY ####[facility] Sgdlnezcvg9934 [place] [address]Dr. Garima Pulliam Urea nitrogen/Creatinine [Mass ratio] 11.7 mg/mg Normal [facility] Comment on above: Performed By: #### C DAVID, NANCY ####[facility] Foayntgmkw0080 [place] [address]Dr. Garima Pulliam XR CHEST 1 Von 03-30-2023 XR CHEST 1 V Normal [facility] BNPon 03-27-2023 Natriuretic peptide B (Bld) [Mass/Vol] 251.0 pg/mL Normal <=900.0 [facility] Comment on above: Performed By: #### C MP, BNP, LIPID ####[facility] Tgypivbnfa5686 [place] [address]Dr. Garima Pulliam GLYCOHEMOGLOBIN A1Con 2022 ADA RECOMMENDATION SEE BELOW Normal [facility] Comment on above: Result Comment: ADA RECOMMENDED LIMIT 4.0 - 6.0 ADA THERAPEUTIC TARGET < 7.0 ACTION SUGGESTED > 7.0 Performed By: #### A 1C ####[facility] Blnaifvfjr1466 [place] [address]Dr. Garima Pulliam Glucose [Mass/Vol] 180 mg/dL Normal [facility] Comment on above: Performed By: #### A 1C ####[facility] Clnorzqsmo[address] [place], [place] [address]Dr. Chapisrenu Pulliam HbA1c (Bld) [Mass fraction] 7.9 % Critically high 4.5-6.2 [facility] Comment on above: Performed By: #### A 1C ####[facility] Gqaymfvrja[address] [place], [place] [address]Dr. Garima Pulliam HEMOGRAM AND PLATELon 2022 Hematocrit (Bld) [Volume fraction] 45.7 % Normal 42.0-54.0 [facility] Comment on above: Performed By: #### H H ####[facility] S[address]brrfxalb[address] [place], [place] [address]Dr. Garima Pulliam Hemoglobin (Bld) [Mass/Vol] 15.1 g/dL Normal 14.0-18.0 [facility] Comment on above: Performed By: #### H H ####[facility] Okeufnbiee524[address] [place], [place] [address]Dr. Garima Pulliam MCH (RBC) [Entitic mass] 30.0 pg Normal 25.9-34.0 [facility] Comment on above: Performed By: #### H H ####[facility] [address]kytqvcn[address] [place], [place] [address]Dr. Garima Pulliam MCHC (RBC) [Mass/Vol] 33.0 g/dL Normal 29.9-35.2 [facility] Comment on above: Performed By: #### H H ####[facility] Geqbgocyzm[address] [place], [place] [address]Dr. Garima Pulliam MCV (RBC) [Entitic vol] 90.7 fL Normal 80.0-94.0 [facility] Comment on above: Performed By: #### H H ####[facility] Ofzzxhlfvx[address] [place], [place] [address]Dr. Garima Pulliam PLT 222 103/ul Normal 150-450 [facility] Comment on above: Performed By: #### H H ####[facility] Zquvssywht6041 [place] [phone]. Garima Pulliam RBC 5.04 106/ul Normal 4.70-6.10 [facility] Comment on above: Performed By: #### H H ####[facility] Abdjbfkmun9130 [place] [phone]. Garima Pulliam WBC 8.7 103/ul Normal 4.0-11.0 [facility] Comment on above: Performed By: #### H H ####[facility] Csicsktuyi1406 [place] [phone]. Garima Pulliam LIPID PROFILEon 03-27-2023 CHOL-HDL RATIO NORM SEE BELOW Normal [facility] Comment on above: Result Comment: 3.3 - 4.4 LOW RISK 4.4 - 7.1 AVERAGE RISK 7.1 - 11.0 MODERATE RISK >11.0 HIGH RISK Performed By: #### C MP, BNP, LIPID ####[facility] Ikquexvkfy99[address] [place] [address]Dr. Garima Pulliam Cholesterol [Mass/Vol] 113 mg/dL Normal <=200 [facility] Comment on above: Performed By: #### C MP, BNP, LIPID ####[facility] Qpejkupnhu04[address] [place] [address]Dr. Garima Pulliam Cholesterol in HDL [Mass/Vol] 51 mg/dL Normal 40-60 [facility] Comment on above: Performed By: #### C MP, BNP, LIPID ####[facility] Zjecepwgxt1601 [place] [address]Dr. Garima Pulliam Cholesterol in LDL [Mass/Vol] 49.8 mg/dL Normal [facility] Comment on above: Performed By: #### C MP, BNP, LIPID ####[facility] Uvmoathvcy[address] [place] [address]Dr. Garima Pulliam Cholesterol.total/Cho lesterol in HDL [Mass ratio] 2.2 {ratio} Normal [facility] Comment on above: Performed By: #### C MP, BNP, LIPID ####[facility] Lmscmlkyqj16[address] [place] [address]Dr. Garima Pulliam HDL NORMAL > or = 60 mg/dl - LOW CARDIOVASCULAR RISK <40 mg/dl - HIGH CARDIOVASCULAR RISK Normal [facility] Comment on above: Performed By: #### C MP, BNP, LIPID ####[facility] [address] [place] [address]Dr. Garima Pulliam LDL CALC NORMAL SEE BELOW Normal [facility] Comment on above: Result Comment: <100 mg/dl OPTIMAL 100 - 129 mg/dl NEAR OR ABOVE OPTIMAL 130 - 159 mg/dl BORDERLINE HIGH 160 - 189 mg/dl HIGH >190 mg/dl VERY HIGH Performed By: #### C MP, BNP, LIPID ####[facility] Zetczctqso24[address] [place] [address]Dr. Garima Pulliam Triglyceride [Mass/Vol] 61 mg/dL Normal <=150 [facility] Comment on above: Performed By: #### C MP, BNP, LIPID ####[facility] Fexzrgipaf[address] [place] [address]Dr. Garima Pulliam VLDL CALC 12.2 mg/dL Normal [facility] Comment on above: Performed By: #### C MP, BNP, LIPID ####[facility] Mbwntkvcqn[address] [place] [address]Dr. Garima Pulliam PROF 14(COMP METB)on 023 Albumin [Mass/Vol] 3.5 g/dL Normal 3.4-5.0 [facility] Comment on above: Performed By: #### C MP, BNP, LIPID ####[facility] Sfyefnkwul8[address] [place] [address]Dr. Garima Pulliam Albumin/Globulin [Mass ratio] 1.2 {ratio} Normal [facility] Comment on above: Performed By: #### C MP, BNP, LIPID ####[facility] Pkiwfzbsdi55[address] [place] [address]Dr. Garima Pulliam ALP [Catalytic activity/Vol] 82 U/L Normal 46-116 [facility] Comment on above: Performed By: #### C MP, BNP, LIPID ####[facility] Nqbgvntoeq8071 [place] [address]Dr. Garima Pulliam ALT [Catalytic activity/Vol] 33 U/L Normal 16-63 [facility] Comment on above: Performed By: #### C MP, BNP, LIPID ####[facility] Incecsmkan[address] [place] [address]Dr. Garima Pulliam Anion gap [Moles/Vol] 9.9 mmol/L Normal [facility] Comment on above: Performed By: #### C MP, BNP, LIPID ####[facility] Xtanbsjgnw9[address] [place] [address]Dr. Garima Pulliam AST [Catalytic activity/Vol] 24 U/L Normal 15-37 [facility] Comment on above: Performed By: #### C MP, BNP, LIPID ####[facility] Cptnuqubit9[address] [place] [address]Dr. Garima Pulliam Bilirubin [Mass/Vol] 0.6 mg/dL Normal 0.2-1.0 [facility] Comment on above: Performed By: #### C MP, BNP, LIPID ####[facility] Qsaxgpjumm1191 [place] [address]Dr. Garima Pulliam Calcium [Mass/Vol] 9.2 mg/dL Normal 8.5-10.1 [facility] Comment on above: Performed By: #### C MP, BNP, LIPID ####[facility] Migybujyhi023[address] [place] [address]Dr. Garima Pulliam Chloride [Moles/Vol] 106 mmol/L Normal 98-107 [facility] Comment on above: Performed By: #### C MP, BNP, LIPID ####[facility] Mbbdtgynpd5043 [place] [address]Dr. Garima Pulliam CO2 [Moles/Vol] 32.3 mmol/L Critically high 21.0-32.0 [facility] Comment on above: Performed By: #### C MP, BNP, LIPID ####[facility] Ytrrywlpmi668[address] [place] [address]Dr. Garima Pulliam Creatinine [Mass/Vol] 0.70 mg/dL Normal 0.70-1.30 [facility] Comment on above: Performed By: #### C MP, BNP, LIPID ####[facility] Cwbwwmxgnt9353 [place] [id number]. Garima Pulliam EGFR-AF LEBANESE >60 Normal >=60 [facility] Comment on above: Performed By: #### C MP, BNP, LIPID ####[facility] Qxwuyxikdi3177 [place] [phone]. Garima Pulliam EGFR-NON AF LEBANESE >60 Normal >=60 [facility] Comment on above: Performed By: #### C MP, BNP, LIPID ####[facility] Bqlsgmzwpp1187 [place] [address]Dr. Garima Pulliam Globulin (S) [Mass/Vol] 2.9 g/dL Normal [facility] Comment on above: Performed By: #### C MP, BNP, LIPID ####[facility] Wdldlbnrnl5723 [place] [address]Dr. Garima Pulliam Glucose [Mass/Vol] 111 mg/dL Critically high 74-106 [facility] Comment on above: Performed By: #### C MP, BNP, LIPID ####[facility] Tcgudncxas3[address] [place] [address]Dr. Garima Pulliam Potassium [Moles/Vol] 4.2 mmol/L Normal 3.5-5.1 [facility] Comment on above: Performed By: #### C MP, BNP, LIPID ####[facility] Gtfszivtyb2177 [place] [address]Dr. Garima Pulliam Protein [Mass/Vol] 6.4 g/dL Normal 6.4-8.2 [facility] Comment on above: Performed By: #### C MP, BNP, LIPID ####[facility] Uqyvznmpbl5306 [place] [address]Dr. Garima Pulliam Sodium [Moles/Vol] 144 mmol/L Normal 136-145 [facility] Comment on above: Performed By: #### C MP, BNP, LIPID ####[facility] Rdlojxxbfb3269 [place] [address]Dr. Garima Pulliam Urea nitrogen [Mass/Vol] 7.0 mg/dL Normal 7.0-18.0 [facility] Comment on above: Performed By: #### C MP, BNP, LIPID ####[facility] S[address]qwixbbhj[address] [place], [place] [address]Dr. Garima Pulliam Urea nitrogen/Creatinine [Mass ratio] 10.0 mg/mg Normal [facility] Comment on above: Performed By: #### C MP, BNP, LIPID ####[facility] Ikhrvwdkjw197[address] [place], [place] [address]Dr. Garima Pulliam BNPon 03-22-2023 Natriuretic peptide B (Bld) [Mass/Vol] 103.0 pg/mL Normal <=900.0 [facility] Comment on above: Performed By: #### B SUGAR CONTROLLER, BMP ####[facility] Oopxomxugg95[address] [place], [place] [address]Dr. Garima Pulliam CBC AUTO DIFFon 03-22-2023 BASO # 0.0 103/ul Normal 0.0-0.1 [facility] Comment on above: Performed By: #### C BC ####[facility] Uyzgtevfio[address] [place], [place] [address]Dr. Garima Heraclio Basophils/100 WBC (Bld) 0.3 % Normal 0.2-2.0 [facility] Comment on above: Performed By: #### C BC ####[facility] Boofwisxjx95[address] [place], [place] [address]Dr. Garima Pulliam EO # 0.2 103/ul Normal 0.0-0.7 [facility] Comment on above: Performed By: #### C BC ####[facility] Cjadebejbz57[address] [place], [place] [address]Dr. Garima Pulliam Eosinophils/100 WBC (Bld) 2.2 % Normal 0.9-7.0 [facility] Comment on above: Performed By: #### C BC ####[facility] Psvlglkgkx67[address] [place], [place] [address]Dr. Garima Pulliam Erythrocyte distribution width (RBC) [Ratio] 13.2 % Normal 11.0-15.0 [facility] Comment on above: Performed By: #### C BC ####[facility] Ambpnndxvo5904 [place] [phone]. Garima Pulliam Hematocrit (Bld) [Volume fraction] 43.4 % Normal 42.0-54.0 [facility] Comment on above: Performed By: #### C BC ####[facility] Xlltmcuhsy40[address] [place] [address]Dr. Garima Heraclio Hemoglobin (Bld) [Mass/Vol] 14.3 g/dL Normal 14.0-18.0 [facility] Comment on above: Performed By: #### C BC ####[facility] Wppxhpphyc5580 [place] [address]Dr. Garima Pulliam IG # 0.02 10e3/ul Normal 0.00-0.03 [facility] Comment on above: Performed By: #### C BC ####[facility] Jxxcoeqohq4345 [place] [address]Dr. Garima Pulliam IG % 0.3 % Normal 0.0-0.5 [facility] Comment on above: Performed By: #### C BC ####[facility] Nhwqlhgvnc6093 [place] [address]Dr. Chapisrenu Pulliam LYMPH # 2.0 103/ul Normal 1.2-3.8 [facility] Comment on above: Performed By: #### C BC ####[facility] Wabcqgfowz5129 [place] [address]Dr. Chapisrenu Pulliam Lymphocytes/100 WBC (Bld) 24.8 % Normal 20.5-60.0 [facility] Comment on above: Performed By: #### C BC ####[facility] Liijdovsns9[address] [place] [address]Dr. Chapisrenu Pulliam MANUAL DIFF REQ NO Normal [facility] Comment on above: Performed By: #### C BC ####[facility] Qsgeakhpwj6604 [place] [address]Dr. Garima Heraclio MCH (RBC) [Entitic mass] 30.0 pg Normal 25.9-34.0 [facility] Comment on above: Performed By: #### C BC ####[facility] Xelgxnekys[address] [place], [place] [address]Dr. Garima Pulliam MCHC (RBC) [Mass/Vol] 32.9 g/dL Normal 29.9-35.2 [facility] Comment on above: Performed By: #### C BC ####[facility] Sbirwtozwr0750 [place] [phone]. Garima Pulliam MCV (RBC) [Entitic vol] 91.0 fL Normal 80.0-94.0 [facility] Comment on above: Performed By: #### C BC ####[facility] Nvasvmjtns7288 [place] [phone]. Garima Heraclio MONO # 0.8 103/ul Normal 0.3-0.8 [facility] Comment on above: Performed By: #### C BC ####[facility] Xbfcrpuaqw0578 [place] [address]Dr. Chapisrenu Pulliam Monocytes/100 WBC (Bld) 9.7 % Normal 1.7-12.0 [facility] Comment on above: Performed By: #### C BC ####[facility] Ojuxbzqrcm9030 [place] [address]Dr. Garima Pulliam NEUT # 4.9 103/ul Normal 1.4-6.5 [facility] Comment on above: Performed By: #### C BC ####[facility] Bylrfivhmq2503 [place] [phone]. Garima Heraclio Neutrophils/100 WBC (Bld) 62.7 % Normal 43.0-75.0 [facility] Comment on above: Performed By: #### C BC ####[facility] Webbbfhbru2692 [place] [phone]. Garima Heraclio Platelet mean volume (Bld) [Entitic vol] 8.8 fL Critically low 9.5-13.5 [facility] Comment on above: Performed By: #### C BC ####[facility] Aimvoaonrq8103 [place] [phone]. Garima Heraclio PLT 198 103/ul Normal 150-450 [facility] Comment on above: Performed By: #### C BC ####[facility] Sktqkbnfoe5010 [place] [phone]. Garima Heraclio RBC 4.77 106/ul Normal 4.70-6.10 [facility] Comment on above: Performed By: #### C BC ####[facility] Nbraodvtfs6941 [place] [phone]. Garima Heraclio WBC 7.9 103/ul Normal 4.0-11.0 [facility] Comment on above: Performed By: #### C BC ####[facility] Shchjazthn5842 [place] [phone]. Garima Heraclio D-DIMERon 03-22-2023 D-DIMER 0.85 mg/L FEU Critically high <=0.59 [facility] Comment on above: Performed By: #### D DIM ####[facility] Eubgpmmoyb8730 [place] [address]Dr. Garima Pulliam D-DIMER COMMENTS SEE BELOW Normal [facility] Comment on above: Result Comment: Incr eases [...] generalized hospitalization. Performed By: #### D DIM ####[facility] Vkolcnckwl348[address] [place], [place] [address]Dr. Garima Pulliam PROF CHEM 8 (BAS METB)on Anion gap [Moles/Vol] 6.9 mmol/L Normal [facility] Comment on above: Performed By: #### B SUGAR CONTROLLER, BMP ####[facility] Qocmatoseg0167 [place] [address]Dr. Garima Pulliam Calcium [Mass/Vol] 8.9 mg/dL Normal 8.5-10.1 [facility] Comment on above: Performed By: #### B SUGAR CONTROLLER, BMP ####[facility] Uanifivbxi8666 [place] [address]Dr. Garima Pulliam Chloride [Moles/Vol] 101 mmol/L Normal 98-107 [facility] Comment on above: Performed By: #### B SUGAR CONTROLLER, BMP ####[facility] Opwpvxhdel33[address] [place], [place] [address]Dr. Chapisrenu Heraclio CO2 [Moles/Vol] 30.7 mmol/L Normal 21.0-32.0 [facility] Comment on above: Performed By: #### B SUGAR CONTROLLER, BMP ####[facility] Qocjgtwnhw413[address] [place], [place] [address]Dr. Garima Pulliam Creatinine [Mass/Vol] 0.82 mg/dL Normal 0.70-1.30 [facility] Comment on above: Performed By: #### B SUGAR CONTROLLER, BMP ####[facility] Odwztmhkdf499[address] [place], [place] [address]Dr. Garima Pulliam EGFR-AF LEBANESE >60 Normal >=60 [facility] Comment on above: Performed By: #### B SUGAR CONTROLLER, BMP ####[facility] Urtkmgdeir05[address] [place], [place] [address]Dr. Chapisrenu Heraclio EGFR-NON AF LEBANESE >60 Normal >=60 [facility] Comment on above: Performed By: #### B SUGAR CONTROLLER, BMP ####[facility] Zddsaqqrxc360[address] [place], [place] [address]Dr. Garima Pulliam Glucose [Mass/Vol] 339 mg/dL Critically high 74-106 [facility] Comment on above: Performed By: #### B SUGAR CONTROLLER, BMP ####[facility] Nfzgwmxuot806[address] [place], [place] [address]Dr. Garima Pulliam Potassium [Moles/Vol] 3.6 mmol/L Normal 3.5-5.1 [facility] Comment on above: Performed By: #### B SUGAR CONTROLLER, BMP ####[facility] Pbddqhilzd165[address] [place], [place] [address]Dr. Garima Pulliam Sodium [Moles/Vol] 135 mmol/L Critically low 136-145 [facility] Comment on above: Performed By: #### B SUGAR CONTROLLER, BMP ####[facility] Ojljzuwlnf2716[address] [place], [place] [address]Dr. Garima Pulliam Urea nitrogen [Mass/Vol] 11.0 mg/dL Normal 7.0-18.0 [facility] Comment on above: Performed By: #### B SUGAR CONTROLLER, BMP ####[facility] Ylxqwlgwej4220[address] [place], [place] [address]Dr. Garima Pulliam Urea nitrogen/Creatinine [Mass ratio] 13.4 mg/mg Normal [facility] Comment on above: Performed By: #### B SUGAR CONTROLLER, BMP ####[facility] Bpehlmable8025[address] [place], [place] [address]Dr. Garima Pulliam US VERONICA DOP LEG BILon 023 US VERONICA DOP LEG BENOIT Normal [facility] BNPon 03-18-2023 Natriuretic peptide B (Bld) [Mass/Vol] 226.0 pg/mL Normal <=900.0 [facility] Comment on above: Performed By: #### B SUGAR CONTROLLER, BMP ####[facility] Imcwgxliiq128[address] [place], [place] [address]Dr. Garima Pulliam CBC AUTO DIFFon 03-18-2023 BASO # 0.0 103/ul Normal 0.0-0.1 [facility] Comment on above: Performed By: #### C BC ####[facility] Rmcoelgixw255[address] [place], [place] [address]Dr. Garima Heraclio Basophils/100 WBC (Bld) 0.2 % Normal 0.2-2.0 [facility] Comment on above: Performed By: #### C BC ####[facility] Rnfjvahoyk67[address] [place], [place] [address]Dr. Garima Pulliam EO # 0.3 103/ul Normal 0.0-0.7 [facility] Comment on above: Performed By: #### C BC ####[facility] Tfrkeyomvu134[address] [place], [place] [address]Dr. Garima Heraclio Eosinophils/100 WBC (Bld) 2.5 % Normal 0.9-7.0 [facility] Comment on above: Performed By: #### C BC ####[facility] Eoanxbcglg2339[address] [place], [place] [address]Dr. Garima Heraclio Erythrocyte distribution width (RBC) [Ratio] 13.2 % Normal 11.0-15.0 [facility] Comment on above: Performed By: #### C BC ####[facility] Fewtsxazmf8411 [place] [address]DrAdalberto Pulliam Hematocrit (Bld) [Volume fraction] 45.8 % Normal 42.0-54.0 [facility] Comment on above: Performed By: #### C BC ####[facility] Fwpvhyakgk3316 [place] [address]DrAdalberto Pulliam Hemoglobin (Bld) [Mass/Vol] 15.3 g/dL Normal 14.0-18.0 [facility] Comment on above: Performed By: #### C BC ####[facility] Tzclpaoopx9[address] [place], [place] [address]DrAdalberto Pulliam IG # 0.02 10e3/ul Normal 0.00-0.03 [facility] Comment on above: Performed By: #### C BC ####[facility] Tpfkfvjcnt218[address] [place], [place] [address]DrAdalberto Pulliam IG % 0.2 % Normal 0.0-0.5 [facility] Comment on above: Performed By: #### C BC ####[facility] Cbibkumsfo224[address] [place], [place] [address]DrAdalberto Pulliam LYMPH # 1.8 103/ul Normal 1.2-3.8 [facility] Comment on above: Performed By: #### C BC ####[facility] Trjiwvxdil6664[address] [place], [place] [address]DrAdalberto Pulliam Lymphocytes/100 WBC (Bld) 18.3 % Critically low 20.5-60.0 [facility] Comment on above: Performed By: #### C BC ####[facility] Eelhuebbnv607[address] [place], [place] [address]DrAdalberto Pulliam MANUAL DIFF REQ NO Normal [facility] Comment on above: Performed By: #### C BC ####[facility] Gogzbvdidr4847 [place] [address]DrAdalberto Pulliam MCH (RBC) [Entitic mass] 30.5 pg Normal 25.9-34.0 [facility] Comment on above: Performed By: #### C BC ####[facility] Wsxltcpakl6386 [place] [address]DrAdalberto Pulliam MCHC (RBC) [Mass/Vol] 33.4 g/dL Normal 29.9-35.2 [facility] Comment on above: Performed By: #### C BC ####[facility] Qxbhqaixzn7497 [place] [address]DrAdalberto Pulliam MCV (RBC) [Entitic vol] 91.2 fL Normal 80.0-94.0 [facility] Comment on above: Performed By: #### C BC ####[facility] Cvkqpedqug686[address] [place], [place] [address]DrAdalberto Pulliam MONO # 0.8 103/ul Normal 0.3-0.8 [facility] Comment on above: Performed By: #### C BC ####[facility] Wjdpkfckgg714[address] [place], [place] [address]DrAdalberto Pulliam Monocytes/100 WBC (Bld) 7.6 % Normal 1.7-12.0 [facility] Comment on above: Performed By: #### C BC ####[facility] Nhflfxityy70[address] [place], [place] [address]DrAdalberto Pulliam NEUT # 7.0 103/ul Critically high 1.4-6.5 [facility] Comment on above: Performed By: #### C BC ####[facility] Vvmkfaxhbc15[address] [place], [place] [address]DrAdalberto Pulliam Neutrophils/100 WBC (Bld) 71.2 % Normal 43.0-75.0 [facility] Comment on above: Performed By: #### C BC ####[facility] Szzzbhaiaf180[address] [place], [place] [address]DrAdalberto Pulliam Platelet mean volume (Bld) [Entitic vol] 8.9 fL Critically low 9.5-13.5 [facility] Comment on above: Performed By: #### C BC ####[facility] Mcxahguavz475[address] [place], [place] [address]DrAdalberto Pulliam PLT 217 103/ul Normal 150-450 [facility] Comment on above: Performed By: #### C BC ####[facility] Udbqjukgcu8979 [place] [address]Dr. Garima Heraclio RBC 5.02 106/ul Normal 4.70-6.10 [facility] Comment on above: Performed By: #### C BC ####[facility] Ntyahqtwbr66[address] [place], [place] [address]Dr. Garima Pulliam WBC 9.8 103/ul Normal 4.0-11.0 [facility] Comment on above: Performed By: #### C BC ####[facility] Ddygafzwvt872[address] [place], [place] [address]Dr. Garima Heraclio CRPon 03-18-2023 CRP 0.1 mg/dL Normal <=1.0 [facility] Comment on above: Performed By: #### C RP ####[facility] Uelzbtglvk[address] [place], [place] [address]Dr. Garima Heraclio PROF CHEM 8 (BAS METB)on Anion gap [Moles/Vol] 10.4 mmol/L Normal [facility] Comment on above: Performed By: #### B SUGAR CONTROLLER, BMP ####[facility] Bfvhqaomeh062[address] [place], [place] [address]Dr. Garima Heraclio Calcium [Mass/Vol] 8.8 mg/dL Normal 8.5-10.1 [facility] Comment on above: Performed By: #### B SUGAR CONTROLLER, BMP ####[facility] Iifvgqmfjw614[address] [place], [place] [address]Dr. Garima Heraclio Chloride [Moles/Vol] 97 mmol/L Critically low 98-107 [facility] Comment on above: Performed By: #### B SUGAR CONTROLLER, BMP ####[facility] Thqejjztgn7[address] [place], [place] [address]Dr. Garima Pulliam CO2 [Moles/Vol] 31.2 mmol/L Normal 21.0-32.0 [facility] Comment on above: Performed By: #### B SUGAR CONTROLLER, BMP ####[facility] Opmvxegwqs604[address] [place], [place] [address]Dr. Garima Pulliam Creatinine [Mass/Vol] 0.91 mg/dL Normal 0.70-1.30 [facility] Comment on above: Performed By: #### B SUGAR CONTROLLER, BMP ####[facility] Kouksbfsrd5254 [place] [address]Dr. Garima Pulliam EGFR-AF LEBANESE >60 Normal >=60 [facility] Comment on above: Performed By: #### B SUGAR CONTROLLER, BMP ####[facility] Amlkymknwi0063 [place] [id number]. Garima Pulliam EGFR-NON AF LEBANESE >60 Normal >=60 [facility] Comment on above: Performed By: #### B SUGAR CONTROLLER, BMP ####[facility] Hhffbqvirn4669 [place] [address]Dr. Garima Pulliam Glucose [Mass/Vol] 315 mg/dL Critically high 74-106 T [facility] Comment on above: Performed By: #### B SUGAR CONTROLLER, BMP ####[facility] Nfogzwebjb0467 [place] [address]Dr. Garima Pulliam Potassium [Moles/Vol] 3.6 mmol/L Normal 3.5-5.1 [facility] Comment on above: Performed By: #### B SUGAR CONTROLLER, BMP ####[facility] Nbkjsxmmta1486 [place] [address]Dr. Garima Pulliam Sodium [Moles/Vol] 135 mmol/L Critically low 136-145 [facility] Comment on above: Performed By: #### B SUGAR CONTROLLER, BMP ####[facility] Jhvajhehtn9690 [place] [address]Dr. Garima Pulliam Urea nitrogen [Mass/Vol] 7.0 mg/dL Normal 7.0-18.0 [facility] Comment on above: Performed By: #### B SUGAR CONTROLLER, BMP ####[facility] Bowzwkjwyz68[address] [place] [address]Dr. Garima Pulliam Urea nitrogen/Creatinine [Mass ratio] 7.7 mg/mg Normal [facility] Comment on above: Performed By: #### B SUGAR CONTROLLER, BMP ####[facility] Qhtnprtswx6385 [place] [address]Dr. Garima Pulliam SED RATE WESTERGRENon 2022 SED RATE 8 mm/hr Normal <=20 [facility] Comment on above: Performed By: #### S EDR ####[facility] Svoxqgyhgd798[address] [place], [place] [address]Dr. Garima Pulliam BNPon 03-16-2023 Natriuretic peptide B (Bld) [Mass/Vol] 241.0 pg/mL Normal <=900.0 [facility] Comment on above: Performed By: #### B SUGAR CONTROLLER, BMP, HSTROPN ####[facility] Caoenmrxsc998[address] [place], [place] [address]Dr. Garima Heraclio CBC AUTO DIFFon 03-16-2023 BASO # 0.0 103/ul Normal 0.0-0.1 [facility] Comment on above: Performed By: #### C BC ####[facility] Mzqcdsuxql750[address] [place], [place] [address]Dr. Chapisrenu Pulliam Basophils/100 WBC (Bld) 0.2 % Normal 0.2-2.0 [facility] Comment on above: Performed By: #### C BC ####[facility] Blnknvdjac9[address] [place], [place] [address]Dr. Garima Pulliam EO # 0.2 103/ul Normal 0.0-0.7 [facility] Comment on above: Performed By: #### C BC ####[facility] Peeenquvxn[address] [place], [place] [address]Dr. Chapisrenu Pulliam Eosinophils/100 WBC (Bld) 2.7 % Normal 0.9-7.0 [facility] Comment on above: Performed By: #### C BC ####[facility] Xlbxtztmog890[address] [place], [place] [address]Dr. Garima Pulliam Erythrocyte distribution width (RBC) [Ratio] 13.1 % Normal 11.0-15.0 [facility] Comment on above: Performed By: #### C BC ####[facility] Egkwlpefkq080[address] [place], [place] [address]Dr. Garima Pulliam Hematocrit (Bld) [Volume fraction] 41.8 % Critically low 42.0-54.0 [facility] Comment on above: Performed By: #### C BC ####[facility] Hwzclqvsas050[address] [place] [address]Dr. Garima Pulliam Hemoglobin (Bld) [Mass/Vol] 14.0 g/dL Normal 14.0-18.0 [facility] Comment on above: Performed By: #### C BC ####[facility] Tpnobkicfw5195 [place] [address]Dr. Garima Pulliam IG # 0.03 10e3/ul Normal 0.00-0.03 [facility] Comment on above: Performed By: #### C BC ####[facility] Jcqjzscipw2679 [place] [address]Dr. Garima Pulliam IG % 0.3 % Normal 0.0-0.5 [facility] Comment on above: Performed By: #### C BC ####[facility] Tdzrbdjins[address] [place], [place] [address]Dr. Chapisrenu Pulliam LYMPH # 2.1 103/ul Normal 1.2-3.8 [facility] Comment on above: Performed By: #### C BC ####[facility] Tiwswjzoxf[address] [place], [place] [address]Dr. Chapisrenu Pulliam Lymphocytes/100 WBC (Bld) 24.2 % Normal 20.5-60.0 [facility] Comment on above: Performed By: #### C BC ####[facility] Brhdkhpmky[address] [address]Dr. Garima Pulliam MANUAL DIFF REQ NO Normal [facility] Comment on above: Performed By: #### C BC ####[facility] [address] [address]Dr. Garima Pulliam MCH (RBC) [Entitic mass] 30.2 pg Normal 25.9-34.0 [facility] Comment on above: Performed By: #### C BC ####[facility] [address] [address]Dr. Garima Pulliam MCHC (RBC) [Mass/Vol] 33.5 g/dL Normal 29.9-35.2 [facility] Comment on above: Performed By: #### C BC ####[facility] Fiontbarly[address] [place] [phone]. Garima Pulliam MCV (RBC) [Entitic vol] 90.1 fL Normal 80.0-94.0 [facility] Comment on above: Performed By: #### C BC ####[facility] Wkpzsxskfa7617 [place] [phone]. Garima Pulliam MONO # 0.6 103/ul Normal 0.3-0.8 [facility] Comment on above: Performed By: #### C BC ####[facility] Ihalosjcrm[address] [place] [address]Dr. Garima Heraclio Monocytes/100 WBC (Bld) 7.4 % Normal 1.7-12.0 [facility] Comment on above: Performed By: #### C BC ####[facility] Yyerlusqbe[address] [place], [place] [address]Dr. Garima Pulliam NEUT # 5.6 103/ul Normal 1.4-6.5 [facility] Comment on above: Performed By: #### C BC ####[facility] Kagflrbxrh[address] [place], [place] [address]Dr. Garima Heraclio Neutrophils/100 WBC (Bld) 65.2 % Normal 43.0-75.0 [facility] Comment on above: Performed By: #### C BC ####[facility] Otvszcaxtf6613 [place] [phone]. Garima Heraclio Platelet mean volume (Bld) [Entitic vol] 8.7 fL Critically low 9.5-13.5 [facility] Comment on above: Performed By: #### C BC ####[facility] Vopoyndfnj[address] [place], [place] [id number]. Garima Heraclio PLT 195 103/ul Normal 150-450 [facility] Comment on above: Performed By: #### C BC ####[facility] Afdxfdjhnw0627 [place] [phone]. Garima Pulliam RBC 4.64 106/ul Critically low 4.70-6.10 [facility] Comment on above: Performed By: #### C BC ####[facility] Yakrqaalsr[address] [place] [address]Dr. Garima Pulliam WBC 8.6 103/ul Normal 4.0-11.0 [facility] Comment on above: Performed By: #### C BC ####[facility] Excdrrmswg[address] [place] [address]Dr. Garima Pulliam PROF CHEM 8 (BAS METB)on Anion gap [Moles/Vol] 6.7 mmol/L Normal [facility] Comment on above: Performed By: #### B SUGAR CONTROLLER, BMP, HSTROPN ####[facility] Avwothgwmr[address] [place] [address]Dr. Garima Pulliam Calcium [Mass/Vol] 8.8 mg/dL Normal 8.5-10.1 [facility] Comment on above: Performed By: #### B SUGAR CONTROLLER, BMP, HSTROPN ####[facility] Kocygviwgi[address] [place], [place] [address]Dr. Garima Pulliam Chloride [Moles/Vol] 106 mmol/L Normal 98-107 [facility] Comment on above: Performed By: #### B SUGAR CONTROLLER, BMP, HSTROPN ####[facility] Qmzvsowywc[address] [place], [place] [address]Dr. Garima Pulliam CO2 [Moles/Vol] 31.4 mmol/L Normal 21.0-32.0 [facility] Comment on above: Performed By: #### B SUGAR CONTROLLER, BMP, HSTROPN ####[facility] Iophcqefek39[address] [place], [place] [address]Dr. Garima Pulliam Creatinine [Mass/Vol] 0.75 mg/dL Normal 0.70-1.30 [facility] Comment on above: Performed By: #### B SUGAR CONTROLLER, BMP, HSTROPN ####[facility] Neujzqujcb[address] [place] [address]Dr. Garima Pulliam EGFR-AF LEBANESE >60 Normal >=60 [facility] Comment on above: Performed By: #### B SUGAR CONTROLLER, BMP, HSTROPN ####[facility] Ydsuvovsfv[address] [place] [address]Dr. Garima Pulliam EGFR-NON AF LEBANESE >60 Normal >=60 [facility] Comment on above: Performed By: #### B SUGAR CONTROLLER, BMP, HSTROPN ####[facility] Nmrgijbfit05[address] [place] [address]Dr. Garima Pulliam Glucose [Mass/Vol] 161 mg/dL Critically high 74-106 T [facility] Comment on above: Performed By: #### B SUGAR CONTROLLER, BMP, HSTROPN ####[facility] Pruqvjwqbq6[address] [place] [address]Dr. Garima Pulliam Potassium [Moles/Vol] 4.1 mmol/L Normal 3.5-5.1 [facility] Comment on above: Performed By: #### B SUGAR CONTROLLER, BMP, HSTROPN ####[facility] Bgxoliiolp25[address] [place] [address]Dr. Garima Pulliam Sodium [Moles/Vol] 140 mmol/L Normal 136-145 [facility] Comment on above: Performed By: #### B SUGAR CONTROLLER, BMP, HSTROPN ####[facility] Bvkkyebfcc5174 [place] [address]Dr. Garima Pulliam Urea nitrogen [Mass/Vol] 7.0 mg/dL Normal 7.0-18.0 [facility] Comment on above: Performed By: #### B SUGAR CONTROLLER, BMP, HSTROPN ####[facility] Vjgegyjdac70[address] [place] [address]Dr. Garima Pulliam Urea nitrogen/Creatinine [Mass ratio] 9.3 mg/mg Normal [facility] Comment on above: Performed By: #### B SUGAR CONTROLLER, BMP, HSTROPN ####[facility] Xbhiaqftnt[address] [place] [address]Dr. Garima Pulliam TROPONIN, HIGH SENSITIVITYon 03-16-2023 HSTROP 9.7 pg/mL Normal 4.0-76.1 [facility] Comment on above: Result Comment: CUT- OFF POINTS HAVE BEEN ESTABLISHED BASED ON THE FOURTH UNIVERSAL DEFINITIONS OF MYOCARDIALINFARCTION. THE UPPER REFERENCE LIMIT (URL) OF TROPONIN, DEFINED THE 99TH PERCENTILE OFcTnI DISTRIBUTION IN A REFERENCE POPULATION, HAS BEEN CONFIRMED THE DECISION THRESHOLDFOR [place] DIAGNOSIS. Performed By: #### B SUGAR CONTROLLER, BMP, HSTROPN ####[facility] Ngeygmoawp[address] [place] [address]Dr. Garima Pulliam XR CHEST 1 Von 03-16-2023 XR CHEST 1 V Normal [facility] BNPon 03-06-2023 Natriuretic peptide B (Bld) [Mass/Vol] 111.0 pg/mL Normal <=900.0 [facility] Comment on above: Performed By: #### C MP, BNP, CK ####[facility] Thbztgufwi4[address] [place] [address]Dr. Chapisrenu Pulliam CBC AUTO DIFFon 03-06-2023 BASO # 0.0 103/ul Normal 0.0-0.1 [facility] Comment on above: Performed By: #### C BC ####[facility] Hmazwfkxse9[address] [place], [place] [address]Dr. Garima Pulliam Basophils/100 WBC (Bld) 0.2 % Normal 0.2-2.0 [facility] Comment on above: Performed By: #### C BC ####[facility] Sbvothvzwr17[address] [place], [place] [address]Dr. Garima Pulliam EO # 0.3 103/ul Normal 0.0-0.7 [facility] Comment on above: Performed By: #### C BC ####[facility] Blrblyumbt70[address] [place], [place] [address]Dr. Garima Pulliam Eosinophils/100 WBC (Bld) 3.5 % Normal 0.9-7.0 [facility] Comment on above: Performed By: #### C BC ####[facility] Khzccxozzf095[address] [place], [place] [address]Dr. Garima Pulliam Erythrocyte distribution width (RBC) [Ratio] 13.3 % Normal 11.0-15.0 [facility] Comment on above: Performed By: #### C BC ####[facility] Ucmejvkkre8[address] [place], [place] [address]Dr. Garima Pulliam Hematocrit (Bld) [Volume fraction] 43.7 % Normal 42.0-54.0 [facility] Comment on above: Performed By: #### C BC ####[facility] Zoxogickhx[address] [place] [address]Dr. Garima Pulliam Hemoglobin (Bld) [Mass/Vol] 14.7 g/dL Normal 14.0-18.0 [facility] Comment on above: Performed By: #### C BC ####[facility] Hgmnyvxrii35[address] [place] [address]Dr. Chapisrenu Heraclio IG # 0.03 10e3/ul Normal 0.00-0.03 [facility] Comment on above: Performed By: #### C BC ####[facility] Kzpfalicms997[address] [place], [place] [address]Dr. Garima Pulliam IG % 0.4 % Normal 0.0-0.5 [facility] Comment on above: Performed By: #### C BC ####[facility] Tnduwigucu655[address] [place], [place] [address]Dr. Garima Pulliam LYMPH # 2.0 103/ul Normal 1.2-3.8 [facility] Comment on above: Performed By: #### C BC ####[facility] Ovwlnghopl485[address] [place], [place] [address]DrAdalberto Pulliam Lymphocytes/100 WBC (Bld) 23.7 % Normal 20.5-60.0 [facility] Comment on above: Performed By: #### C BC ####[facility] Iydayvdeku[address] [place] [address]Dr. Garima Pulliam MANUAL DIFF REQ NO Normal [facility] Comment on above: Performed By: #### C BC ####[facility] Ihvaefmnjz2567 [place] [phone] Pulliam MCH (RBC) [Entitic mass] 30.1 pg Normal 25.9-34.0 [facility] Comment on above: Performed By: #### C BC ####[facility] Zgrehcpdii1356 [place] [phone]. Garima Pulliam MCHC (RBC) [Mass/Vol] 33.6 g/dL Normal 29.9-35.2 [facility] Comment on above: Performed By: #### C BC ####[facility] Qpzihjqtgb[address] [place] [address]Dr. Garima Heraclio MCV (RBC) [Entitic vol] 89.4 fL Normal 80.0-94.0 [facility] Comment on above: Performed By: #### C BC ####[facility] Jupythiguu69[address] [place] [address]Dr. Garima Pulliam MONO # 0.8 103/ul Normal 0.3-0.8 [facility] Comment on above: Performed By: #### C BC ####[facility] Cjdlypqght6304 [place] [address]Dr. Garima Pulliam Monocytes/100 WBC (Bld) 9.0 % Normal 1.7-12.0 [facility] Comment on above: Performed By: #### C BC ####[facility] Ptdbintmud[address] [place], [place] [address]Dr. Garima Pulliam NEUT # 5.4 103/ul Normal 1.4-6.5 [facility] Comment on above: Performed By: #### C BC ####[facility] Apfvtnaupu077[address] [place], [place] [address]Dr. Garima Pulliam Neutrophils/100 WBC (Bld) 63.2 % Normal 43.0-75.0 [facility] Comment on above: Performed By: #### C BC ####[facility] Ojveuyxotp403[address] [place], [place] [address]Dr. Garima Pulliam Platelet mean volume (Bld) [Entitic vol] 9.0 fL Critically low 9.5-13.5 [facility] Comment on above: Performed By: #### C BC ####[facility] Orvwvnvmcf[address] [place], [place] [address]Dr. Garima Pulliam PLT 218 103/ul Normal 150-450 [facility] Comment on above: Performed By: #### C BC ####[facility] Rfpkildxyd2760 [place] [phone]. Garima Pulliam RBC 4.89 106/ul Normal 4.70-6.10 [facility] Comment on above: Performed By: #### C BC ####[facility] Uwelnckenr[address] [place] [address]Dr. Garima Pulliam WBC 8.5 103/ul Normal 4.0-11.0 [facility] Comment on above: Performed By: #### C BC ####[facility] Mfrscvfmgb5663 [place] [address]Dr. Garima Pulliam CPKon 03-06-2023 CK [Catalytic activity/Vol] 191 U/L Normal 39-308 [facility] Comment on above: Performed By: #### C MP, BNP, CK ####[facility] Cbmnxjeqzr4[address] [place] [address]Dr. Garima Pulliam PROF 14(COMP METB)on 023 Albumin [Mass/Vol] 3.6 g/dL Normal 3.4-5.0 [facility] Comment on above: Performed By: #### C MP, BNP, CK ####[facility] Vetmdzkcyj[address] [place] [address]Dr. Gariam Pulliam Albumin/Globulin [Mass ratio] 1.2 {ratio} Normal [facility] Comment on above: Performed By: #### C MP, BNP, CK ####[facility] Ytzxrgcqyr39[address] [place] [address]Dr. Garima Pulliam ALP [Catalytic activity/Vol] 91 U/L Normal 46-116 [facility] Comment on above: Performed By: #### C MP, BNP, CK ####[facility] Qssqvltjyx0024 [place] [address]Dr. Garima Pulliam ALT [Catalytic activity/Vol] 33 U/L Normal 16-63 [facility] Comment on above: Performed By: #### C MP, BNP, CK ####[facility] Ayunaifuwh[address] [place] [address]Dr. Garima Pulliam Anion gap [Moles/Vol] 10.3 mmol/L Normal [facility] Comment on above: Performed By: #### C MP, BNP, CK ####[facility] Tyiwxaqqez1246 [place] [address]Dr. Garima Pulliam AST [Catalytic activity/Vol] 17 U/L Normal 15-37 [facility] Comment on above: Performed By: #### C MP, BNP, CK ####[facility] Hthglanjss9040 [place] [address]Dr. Garima Pulliam Bilirubin [Mass/Vol] 0.4 mg/dL Normal 0.2-1.0 [facility] Comment on above: Performed By: #### C MP, BNP, CK ####[facility] Zurdcerres9063 [place] [address]Dr. Garima Pulliam Calcium [Mass/Vol] 9.1 mg/dL Normal 8.5-10.1 [facility] Comment on above: Performed By: #### C MP, BNP, CK ####[facility] Xozghlbfva[address] [place] [address]Dr. Garima Pulliam Chloride [Moles/Vol] 102 mmol/L Normal 98-107 [facility] Comment on above: Performed By: #### C MP, BNP, CK ####[facility] Mujexwrzmj75[address] [place] [address]Dr. Garima Pulliam CO2 [Moles/Vol] 29.7 mmol/L Normal 21.0-32.0 [facility] Comment on above: Performed By: #### C MP, BNP, CK ####[facility] Xbcenglxfd8974 [place] [address]Dr. Garima Pulliam Creatinine [Mass/Vol] 0.79 mg/dL Normal 0.70-1.30 [facility] Comment on above: Performed By: #### C MP, BNP, CK ####[facility] Zmxveewhjt4658 [place] [address]Dr. Garima Pulliam EGFR-AF LEBANESE >60 Normal >=60 [facility] Comment on above: Performed By: #### C MP, BNP, CK ####[facility] Rlejsnetpb2099 [place] [address]Dr. Garima Pulliam EGFR-NON AF LEBANESE >60 Normal >=60 [facility] Comment on above: Performed By: #### C MP, BNP, CK ####[facility] Xrqhcaaeyu7160 [place] [address]Dr. Garima Pulliam Globulin (S) [Mass/Vol] 3.0 g/dL Normal [facility] Comment on above: Performed By: #### C MP, BNP, CK ####[facility] Sgkpfuwyiw4619 [place] [address]Dr. Garima Pulliam Glucose [Mass/Vol] 202 mg/dL Critically high 74-106 [facility] Comment on above: Performed By: #### C MP, BNP, CK ####[facility] Npgizgozxs1513 [place] [address]Dr. Garima Pulliam Potassium [Moles/Vol] 4.0 mmol/L Normal 3.5-5.1 [facility] Comment on above: Performed By: #### C MP, BNP, CK ####[facility] Nvnusyuhcy7248 [place] [address]Dr. Garima Pulliam Protein [Mass/Vol] 6.6 g/dL Normal 6.4-8.2 [facility] Comment on above: Performed By: #### C MP, BNP, CK ####[facility] Rpisxgnquq[address] [place], [place] [address]Dr. Garima Pulliam Sodium [Moles/Vol] 138 mmol/L Normal 136-145 [facility] Comment on above: Performed By: #### C MP, BNP, CK ####[facility] Wzuciznewh[address] [place], [place] [address]Dr. Garima Pulliam Urea nitrogen [Mass/Vol] 10.0 mg/dL Normal 7.0-18.0 [facility] Comment on above: Performed By: #### C MP, BNP, CK ####[facility] Clgfpobcsy9613 [place] [address]Dr. Garima Pulliam Urea nitrogen/Creatinine [Mass ratio] 12.7 mg/mg Normal [facility] Comment on above: Performed By: #### C MP, BNP, CK ####[facility] Lwcxqaomwi6120 [place] [address]Dr. Garima Pulliam US VERONICA DOP LEG BILon 023 US VERONICA DOP LEG BENOIT Normal [facility] CBC AUTO DIFFon 01-13-2023 BASO # 0.0 103/ul Normal 0.0-0.1 [facility] Comment on above: Performed By: #### C BC ####[facility] Lyonvfzgss9817 [place] [phone]. Chapisrenu Pulliam Basophils/100 WBC (Bld) 0.0 % Critically low 0.2-2.0 [facility] Comment on above: Performed By: #### C BC ####[facility] Snjrvnzycz9426 [place] [address]Dr. Garima Pulliam EO # 0.0 103/ul Normal 0.0-0.7 [facility] Comment on above: Performed By: #### C BC ####[facility] Zgxdvfejpz165[address] [place], [place] [address]Dr. Garima Pulliam Eosinophils/100 WBC (Bld) 0.0 % Critically low 0.9-7.0 [facility] Comment on above: Performed By: #### C BC ####[facility] Eorlipahlx4943 [place] [address]Dr. Garima Pulliam Erythrocyte distribution width (RBC) [Ratio] 13.2 % Normal 11.0-15.0 [facility] Comment on above: Performed By: #### C BC ####[facility] Mbnsftqaue39[address] [place], [place] [address]Dr. Garima Pulliam Hematocrit (Bld) [Volume fraction] 46.7 % Normal 42.0-54.0 [facility] Comment on above: Performed By: #### C BC ####[facility] Merilubzes119[address] [place], [place] [address]Dr. Garima Pulliam Hemoglobin (Bld) [Mass/Vol] 15.6 g/dL Normal 14.0-18.0 [facility] Comment on above: Performed By: #### C BC ####[facility] Nznwplydyx212[address] [place], [place] [address]Dr. Garima Pulliam IG # 0.01 10e3/ul Normal 0.00-0.03 [facility] Comment on above: Performed By: #### C BC ####[facility] Cykxughqef5417 [place] [phone]. Garima Pulliam IG % 0.2 % Normal 0.0-0.5 [facility] Comment on above: Performed By: #### C BC ####[facility] Rioilbzzxw0479 [place] [phone]. Garima Pulliam LYMPH # 0.8 103/ul Critically low 1.2-3.8 [facility] Comment on above: Performed By: #### C BC ####[facility] Jqlvofwruu5497 [place] [phone]. Garima Pulliam Lymphocytes/100 WBC (Bld) 12.7 % Critically low 20.5-60.0 [facility] Comment on above: Performed By: #### C BC ####[facility] Eigjcxbjgm7815 [place] [address]Dr. Garima Pulliam MANUAL DIFF REQ NO Normal [facility] Comment on above: Performed By: #### C BC ####[facility] Shzqdaazhm0490 [place] [phone]. Garima Pulliam MCH (RBC) [Entitic mass] 30.2 pg Normal 25.9-34.0 [facility] Comment on above: Performed By: #### C BC ####[facility] Xeogmwfytd9544 [place] [phone]. Garima Pulliam MCHC (RBC) [Mass/Vol] 33.4 g/dL Normal 29.9-35.2 [facility] Comment on above: Performed By: #### C BC ####[facility] Vdxbrkafdo8833 [place] [phone]. Garima Pulliam MCV (RBC) [Entitic vol] 90.3 fL Normal 80.0-94.0 [facility] Comment on above: Performed By: #### C BC ####[facility] Kcybzrdtwv8194 [place] [phone]. Garima Heraclio MONO # 0.1 103/ul Critically low 0.3-0.8 [facility] Comment on above: Performed By: #### C BC ####[facility] Wyyrssjuks6830 [place] [phone]. Garima Pulliam Monocytes/100 WBC (Bld) 0.9 % Critically low 1.7-12.0 [facility] Comment on above: Performed By: #### C BC ####[facility] Sftzgqgcys6780 [place] [phone]. Garima Pulliam NEUT # 5.6 103/ul Normal 1.4-6.5 [facility] Comment on above: Performed By: #### C BC ####[facility] Llefipgonx7390 [place] [phone]. Garima Pulliam Neutrophils/100 WBC (Bld) 86.2 % Critically high 43.0-75.0 [facility] Comment on above: Performed By: #### C BC ####[facility] Znqngacjjh0470 [place] [address]Dr. Garima Pulliam Platelet mean volume (Bld) [Entitic vol] 9.1 fL Critically low 9.5-13.5 [facility] Comment on above: Performed By: #### C BC ####[facility] Cbbsehvyju32[address] [place], [place] [address]Dr. Garima Pulliam PLT 169 103/ul Normal 150-450 [facility] Comment on above: Performed By: #### C BC ####[facility] Kghntteqqx698[address] [place], [place] [address]Dr. Garima Pulliam RBC 5.17 106/ul Normal 4.70-6.10 [facility] Comment on above: Performed By: #### C BC ####[facility] Fiwmrviunb[address] [place], [place] [address]Dr. Garima Pulliam WBC 6.5 103/ul Normal 4.0-11.0 [facility] Comment on above: Performed By: #### C BC ####[facility] Ixyalzqvyp217[address] [place], [place] [address]Dr. Garima Pulliam D-DIMERon 01-13-2023 D-DIMER 0.41 mg/L FEU Normal <=0.59 [facility] Comment on above: Performed By: #### D DIM ####[facility] Ghjariyirt10[address] [place] [address]Dr. Garima Pulliam D-DIMER COMMENTS SEE BELOW Normal [...] generalized hospitalization. Performed By: #### D DIM ####[facility] Sbihabbohz00[address] [place], [place] [address]Dr. Garima Pulliam PROF 14(COMP METB)on 023 Albumin [Mass/Vol] 3.4 g/dL Normal 3.4-5.0 [facility] Comment on above: Performed By: #### C MP ####[facility] Yehmccaebn444[address] [place], [place] [address]Dr. Garima Pulliam Albumin/Globulin [Mass ratio] 1.3 {ratio} Normal [facility] Comment on above: Performed By: #### C MP ####[facility] Kronfpbmhu395[address] [place], [place] [address]Dr. Garima Pulliam ALP [Catalytic activity/Vol] 83 U/L Normal 46-116 [facility] Comment on above: Performed By: #### C MP ####[facility] Svgzwnthmr9[address] [place], [place] [address]Dr. Garima Pulliam ALT [Catalytic activity/Vol] 25 U/L Normal 16-63 [facility] Comment on above: Performed By: #### C MP ####[facility] Ridlblwbnk1525 [place] [address]Dr. Garima Pulliam Anion gap [Moles/Vol] 14.5 mmol/L Normal [facility] Comment on above: Performed By: #### C MP ####[facility] Wkossrdjxv437[address] [place], [place] [address]Dr. Garima Pulliam AST [Catalytic activity/Vol] 19 U/L Normal 15-37 [facility] Comment on above: Performed By: #### C MP ####[facility] Mkpjwnqohk0312[address] [place], [place] [address]Dr. Garima Pulliam Bilirubin [Mass/Vol] 0.4 mg/dL Normal 0.2-1.0 [facility] Comment on above: Performed By: #### C MP ####[facility] Xeersextoq36[address] [place], [place] [address]Dr. Garima Pulliam Calcium [Mass/Vol] 8.7 mg/dL Normal 8.5-10.1 [facility] Comment on above: Performed By: #### C MP ####[facility] Wjigdmjrmg312[address] [place], [place] [address]Dr. Garima Pulliam Chloride [Moles/Vol] 104 mmol/L Normal 98-107 [facility] Comment on above: Performed By: #### C MP ####[facility] Cuwzxdgvsx327[address] [place], [place] [address]Dr. Garima Pulliam CO2 [Moles/Vol] 24.5 mmol/L Normal 21.0-32.0 [facility] Comment on above: Performed By: #### C MP ####[facility] Dmwielzmmo27[address] [place], [place] [address]Dr. Garima Pulliam Creatinine [Mass/Vol] 0.70 mg/dL Normal 0.70-1.30 [facility] Comment on above: Performed By: #### C MP ####[facility] Indnsfnimr114[address] [place], [place] [address]Dr. Garima Heraclio EGFR-AF LEBANESE >60 Normal >=60 [facility] Comment on above: Performed By: #### C MP ####[facility] Neqnhedhbd733[address] [place], [place] [address]Dr. Chapisrenu Heraclio EGFR-NON AF LEBANESE >60 Normal >=60 [facility] Comment on above: Performed By: #### C MP ####[facility] Wsyrofxhqu232[address] [place], [place] [address]Dr. Chapisrenu Pulliam Globulin (S) [Mass/Vol] 2.6 g/dL Normal [facility] Comment on above: Performed By: #### C MP ####[facility] Bbxxjkepab3443 [place] [address]Dr. Garima Pulliam Glucose [Mass/Vol] 196 mg/dL Critically high 74-106 [facility] Comment on above: Performed By: #### C MP ####[facility] Zmqocpajxn5838 [place] [address]Dr. Garima Pulliam Potassium [Moles/Vol] 4.0 mmol/L Normal 3.5-5.1 [facility] Comment on above: Performed By: #### C MP ####[facility] Ubujxypnxr5678 [place] [address]Dr. Garima Pulliam Protein [Mass/Vol] 6.0 g/dL Critically low 6.4-8.2 [facility] Comment on above: Performed By: #### C MP ####[facility] Wzcpbjetam[address] [place], [place] [address]Dr. Garima Pulliam Sodium [Moles/Vol] 139 mmol/L Normal 136-145 [facility] Comment on above: Performed By: #### C MP ####[facility] Tmyjbfbrdw[address] [place], [place] [address]Dr. Garima Pulliam Urea nitrogen [Mass/Vol] 7.0 mg/dL Normal 7.0-18.0 [facility] Comment on above: Performed By: #### C MP ####[facility] Nraftncvhg[address] [place], [place] [address]Dr. Garima Heraclio Urea nitrogen/Creatinine [Mass ratio] 10.0 mg/mg Normal [facility] Comment on above: Performed By: #### C MP ####[facility] Zdcoacmiln67[address] [place], [place] [address]Dr. Garima Heraclio BNPon 01-12-2023 Natriuretic peptide B (Bld) [Mass/Vol] 141.0 pg/mL Normal <=900.0 [facility] Comment on above: Performed By: #### C MP, BNP, HSTROPN ####[facility] Adkzpheblc[address] [place], [place] [address]Dr. Garima Heraclio CBC AUTO DIFFon 01-12-2023 BASO # 0.0 103/ul Normal 0.0-0.1 [facility] Comment on above: Performed By: #### C BC ####[facility] Dzamrztgoj29[address] [place] [id number]. Garima Heraclio Basophils/100 WBC (Bld) 0.2 % Normal 0.2-2.0 [facility] Comment on above: Performed By: #### C BC ####[facility] Mmachicekb[address] [place] [address]Dr. Garima Heraclio EO # 0.2 103/ul Normal 0.0-0.7 [facility] Comment on above: Performed By: #### C BC ####[facility] Yohdjyzyjf18[address] [place] [address]Dr. Garima Heraclio Eosinophils/100 WBC (Bld) 2.7 % Normal 0.9-7.0 [facility] Comment on above: Performed By: #### C BC ####[facility] Htduskacvm[address] [place], [place] [address]Dr. Garima Pulliam Erythrocyte distribution width (RBC) [Ratio] 13.3 % Normal 11.0-15.0 [facility] Comment on above: Performed By: #### C BC ####[facility] Nxgsagklbn98[address] [place], [place] [address]Dr. Garima Pulliam Hematocrit (Bld) [Volume fraction] 42.3 % Normal 42.0-54.0 [facility] Comment on above: Performed By: #### C BC ####[facility] Jmrhbagyef[address] [place], [place] [address]Dr. Garima Pulliam Hemoglobin (Bld) [Mass/Vol] 14.3 g/dL Normal 14.0-18.0 [facility] Comment on above: Performed By: #### C BC ####[facility] Wcwxbpcjuv[address] [place], [place] [address]Dr. Garima Pulliam IG # 0.02 10e3/ul Normal 0.00-0.03 [facility] Comment on above: Performed By: #### C BC ####[facility] Rrilvetkyl9357 [place] [id number]. Garima Pulliam IG % 0.2 % Normal 0.0-0.5 [facility] Comment on above: Performed By: #### C BC ####[facility] Ffmqnbcdls3525 [place] [phone]. Garima Pulliam LYMPH # 2.6 103/ul Normal 1.2-3.8 [facility] Comment on above: Performed By: #### C BC ####[facility] Eikuvdfejv9739 [place] [phone]. Garima Heraclio Lymphocytes/100 WBC (Bld) 29.6 % Normal 20.5-60.0 [facility] Comment on above: Performed By: #### C BC ####[facility] Flpfogdvdr[address] [place] [address]Dr. Garima Heraclio MANUAL DIFF REQ NO Normal [facility] Comment on above: Performed By: #### C BC ####[facility] Ginimzydpe[address] [place] [phone]. Garima Pulliam MCH (RBC) [Entitic mass] 30.2 pg Normal 25.9-34.0 [facility] Comment on above: Performed By: #### C BC ####[facility] Dsulwmwehj2952 [place] [address]Dr. Garima Pulliam MCHC (RBC) [Mass/Vol] 33.8 g/dL Normal 29.9-35.2 [facility] Comment on above: Performed By: #### C BC ####[facility] Mkkxpetxyw7609 [place] [phone]. Garima Pulliam MCV (RBC) [Entitic vol] 89.2 fL Normal 80.0-94.0 [facility] Comment on above: Performed By: #### C BC ####[facility] Bloxffwoog[address] [place], [place] [address]Dr. Chapisrenu Pulliam MONO # 0.7 103/ul Normal 0.3-0.8 [facility] Comment on above: Performed By: #### C BC ####[facility] Wkbruynnlm5548 [place] [phone]. Garima Pulliam Monocytes/100 WBC (Bld) 8.3 % Normal 1.7-12.0 [facility] Comment on above: Performed By: #### C BC ####[facility] Ohjyaawevs9309 [place] [phone]. Garima Pulliam NEUT # 5.1 103/ul Normal 1.4-6.5 [facility] Comment on above: Performed By: #### C BC ####[facility] Xamrayimxa1660 [place] [phone]. Garima Pulliam Neutrophils/100 WBC (Bld) 59.0 % Normal 43.0-75.0 [facility] Comment on above: Performed By: #### C BC ####[facility] Rxpimxfwrb6807 [place] [address]Dr. Garima Pulliam Platelet mean volume (Bld) [Entitic vol] 8.7 fL Critically low 9.5-13.5 [facility] Comment on above: Performed By: #### C BC ####[facility] Ydfxnyjywb6558 [place] [address]Dr. Garima Pulliam PLT 182 103/ul Normal 150-450 [facility] Comment on above: Performed By: #### C BC ####[facility] Crlwuxqjsq8024 [place] [phone]. Garima Pulliam RBC 4.74 106/ul Normal 4.70-6.10 [facility] Comment on above: Performed By: #### C BC ####[facility] Vznwzlkfwh[address] [place], [place] [id number]. Garima Pulliam WBC 8.7 103/ul Normal 4.0-11.0 [facility] Comment on above: Performed By: #### C BC ####[facility] Pxijnvdsip[address] [place], [place] [address]Dr. Garima Pulliam Covid-19 PCR (CVDTB)on 12-25 SARS-CoV-2 (COVID-19) RNA MARIE+probe Ql (Unsp spec) Not detected Normal NOT DETECTED [facility] Comment on above: Result Comment: When diagnostic [...] for this test is supported by the Control Panel Tester of Health and Human Service's declaration that [...] be used). Performed By: #### C VDTBH ####[facility] Fzzaoaeaws8[address] [place] [address]Dr. Garima Pulliam PROF 14(COMP METB)on 023 Albumin [Mass/Vol] 3.6 g/dL Normal 3.4-5.0 [facility] Comment on above: Performed By: #### C MP, BNP, HSTROPN ####[facility] Rihhcudhbm55[address] [place] [address]Dr. Garima Pulliam Albumin/Globulin [Mass ratio] 1.5 {ratio} Normal [facility] Comment on above: Performed By: #### C MP, BNP, HSTROPN ####[facility] Dfyrhkzwvw4339 [place] [address]Dr. Garima Pulliam ALP [Catalytic activity/Vol] 79 U/L Normal 46-116 [facility] Comment on above: Performed By: #### C MP, BNP, HSTROPN ####[facility] Biqsnlnrhu4263 [place] [address]Dr. Garima Pulliam ALT [Catalytic activity/Vol] 27 U/L Normal 16-63 [facility] Comment on above: Performed By: #### C MP, BNP, HSTROPN ####[facility] Bnerdywzlb4[address] [place] [address]Dr. Garima Pulliam Anion gap [Moles/Vol] 11.7 mmol/L Normal [facility] Comment on above: Performed By: #### C MP, BNP, HSTROPN ####[facility] Sjegezgatb0328 [place] [address]Dr. Garima Pulliam AST [Catalytic activity/Vol] 21 U/L Normal 15-37 [facility] Comment on above: Performed By: #### C MP, BNP, HSTROPN ####[facility] Naruhwjupj09[address] [place] [address]Dr. Garima Pulliam Bilirubin [Mass/Vol] 0.3 mg/dL Normal 0.2-1.0 [facility] Comment on above: Performed By: #### C MP, BNP, HSTROPN ####[facility] Jwwictsvom8221 [place] [address]Dr. Garima Pulliam Calcium [Mass/Vol] 8.9 mg/dL Normal 8.5-10.1 [facility] Comment on above: Performed By: #### C MP, BNP, HSTROPN ####[facility] Giafolhqof60[address] [place] [address]Dr. Garima Pulliam Chloride [Moles/Vol] 107 mmol/L Normal 98-107 [facility] Comment on above: Performed By: #### C MP, BNP, HSTROPN ####[facility] Fsoxshwnsg2616 [place] [address]Dr. Garima Pulliam CO2 [Moles/Vol] 26.0 mmol/L Normal 21.0-32.0 [facility] Comment on above: Performed By: #### C MP, BNP, HSTROPN ####[facility] Lfzfknzljn3582 [place] [address]Dr. Garima Pulliam Creatinine [Mass/Vol] 0.65 mg/dL Critically low 0.70-1.30 [facility] Comment on above: Performed By: #### C MP, BNP, HSTROPN ####[facility] Scdopnbnun3552 [place] [address]Dr. Yilan Pulliam EGFR-AF LEBANESE >60 Normal >=60 [facility] Comment on above: Performed By: #### C MP, BNP, HSTROPN ####[facility] Nqdktvwqmh1871 [place] [address]Dr. Garima Pulliam EGFR-NON AF LEBANESE >60 Normal >=60 [facility] Comment on above: Performed By: #### C MP, BNP, HSTROPN ####[facility] Cvhmlivmxv2687 [place] [address]Dr. Garima Pulliam Globulin (S) [Mass/Vol] 2.4 g/dL Normal [facility] Comment on above: Performed By: #### C MP, BNP, HSTROPN ####[facility] Kznlitzwgn[address] [place], [place] [address]Dr. Garima Pulliam Glucose [Mass/Vol] 85 mg/dL Normal 74-106 [facility] Comment on above: Performed By: #### C MP, BNP, HSTROPN ####[facility] Sopyphditu8489 [place] [address]Dr. Garima Pulliam Potassium [Moles/Vol] 3.7 mmol/L Normal 3.5-5.1 [facility] Comment on above: Performed By: #### C MP, BNP, HSTROPN ####[facility] Nlgvmjigdf9343 [place] [address]Dr. Garima Pulliam Protein [Mass/Vol] 6.0 g/dL Critically low 6.4-8.2 [facility] Comment on above: Performed By: #### C MP, BNP, HSTROPN ####[facility] Rzrcmjggis7[address] [place] [address]Dr. Garima Pulliam Sodium [Moles/Vol] 141 mmol/L Normal 136-145 [facility] Comment on above: Performed By: #### C MP, BNP, HSTROPN ####[facility] Bexkeyozka5635 [place] [address]Dr. Garima Pulliam Urea nitrogen [Mass/Vol] 5.0 mg/dL Critically low 7.0-18.0 [facility] Comment on above: Performed By: #### C MP, BNP, HSTROPN ####[facility] Xmzjdajmgd6797 [place] [address]Dr. Garima Pulliam Urea nitrogen/Creatinine [Mass ratio] 7.7 mg/mg Normal [facility] Comment on above: Performed By: #### C MP, BNP, HSTROPN ####[facility] Wgyukkbiyq6349 [place] [address]Dr. Garima Pulliam PROTIMEon 01-12-2023 INR Coag (PPP) [Relative time] 1.16 {INR} Normal [facility] Comment on above: Performed By: #### P TT, PT ####[facility] Rvoshdvzuy50[address] [place] [address]Dr. Garima Pulliam INR GUIDELINES SEE BELOW Normal [facility] Comment on above: Result Comment: WESLEY RED INR: 2.0 - 3.0 CONDITIONS NOT LISTED BELOW 2.5 - 3.5 FOR PROSTHETIC HEART VALVE REPLACEMENT 2.5 - 3.5 RECURRENT THROMBOSIS Performed By: #### P TT, PT ####[facility] Ueivbjwkoz[address] [place], [place] [address]Dr. Garima Pulliam PT Coag (PPP) [Time] 12.2 s Critically high 9.0-11.6 [facility] Comment on above: Performed By: #### P TT, PT ####[facility] Vhwudvecnz45[address] [place] [address]Dr. Garima Pulliam PTTon 01-12-2023 aPTT Coag (Bld) [Time] 29.1 s Normal 22.3-36.2 [facility] Comment on above: Performed By: #### P TT, PT ####[facility] Sagmtytsun[address] [place], [place] [address]Dr. Garima Pulliam TROPONIN, HIGH SENSITIVITYon 01-12-2023 HSTROP 10.3 pg/mL Normal 4.0-76.1 [facility] Comment on above: Result Comment: CUT- OFF POINTS HAVE BEEN ESTABLISHED BASED ON THE FOURTH UNIVERSAL DEFINITIONS OF MYOCARDIALINFARCTION. THE UPPER REFERENCE LIMIT (URL) OF TROPONIN, DEFINED THE 99TH PERCENTILE OFcTnI DISTRIBUTION IN A REFERENCE POPULATION, HAS BEEN CONFIRMED THE DECISION THRESHOLDFOR [place] DIAGNOSIS. Performed By: #### H STROPN ####[facility] Zwswnnkcmb14[address] [place] [address]Dr. Garima Pulliam HSTROP 9.2 pg/mL Normal 4.0-76.1 [facility] Comment on above: Result Comment: CUT- OFF POINTS HAVE BEEN ESTABLISHED BASED ON THE FOURTH UNIVERSAL DEFINITIONS OF MYOCARDIALINFARCTION. THE UPPER REFERENCE LIMIT (URL) OF TROPONIN, DEFINED THE 99TH PERCENTILE OFcTnI DISTRIBUTION IN A REFERENCE POPULATION, HAS BEEN CONFIRMED THE DECISION THRESHOLDFOR [place] DIAGNOSIS. Performed By: #### C MP, BNP, HSTROPN ####[facility] Noztjlywqd0883 [place] [address]Dr. Garima Pulliam XR CHEST 1 Von 01-12-2023 XR CHEST 1 V Normal [facility] XR CHEST 1 Von 01-01-2023 XR CHEST 1 V Normal [facility] CARDIAC NASH 3-6on 3 CK [Catalytic activity/Vol] 196 U/L Normal 39-308 [facility] Comment on above: Performed By: #### C MREP ####[facility] Hujwfhxozc55[address] [place] [address]Dr. Garima Pulliam CK.MB [Mass/Vol] 7.41 ng/mL Critically high <=3.60 [facility] Comment on above: Performed By: #### C MREP ####[facility] Kmvgungyfu5[address] [place] [address]Dr. Garima Pulliam HSTROP 10.3 pg/mL Normal 4.0-76.1 [facility] Comment on above: Result Comment: CUT- OFF POINTS HAVE BEEN ESTABLISHED BASED ON THE FOURTH UNIVERSAL DEFINITIONS OF MYOCARDIALINFARCTION. THE UPPER REFERENCE LIMIT (URL) OF TROPONIN, DEFINED THE 99TH PERCENTILE OFcTnI DISTRIBUTION IN A REFERENCE POPULATION, HAS BEEN CONFIRMED THE DECISION THRESHOLDFOR [place] DIAGNOSIS. Performed By: #### C MREP ####[facility] Nlnqjbnqbd3390 [place] [phone]. Garima Pulliam XR CHEST 1 Von 12-26-2022 XR CHEST 1 V Normal [facility] BNPon 12-25-2022 Natriuretic peptide B (Bld) [Mass/Vol] 98.0 pg/mL Normal <=900.0 [facility] Comment on above: Performed By: #### B MARVIN FRENCH CMADM ####[facility] Falazxeqqh6352 [place] [address]Dr. Garima Pulliam CARDIAC NASH ADMITon 023 CK [Catalytic activity/Vol] 208 U/L Normal 39-308 [facility] Comment on above: Performed By: #### B MARVIN FRENCH CMADM ####[facility] Ftrcfocasz5450 [place] [address]Dr. Garima Pulliam CK.MB [Mass/Vol] 7.63 ng/mL Critically high <=3.60 [facility] Comment on above: Performed By: #### B MARVIN FRENCH CMADM ####[facility] Nfdckgrfmb[address] [place], [place] [address]Dr. Garima Pulliam HSTROP 8.8 pg/mL Normal 4.0-76.1 [facility] Comment on above: Result Comment: CUT- OFF POINTS HAVE BEEN ESTABLISHED BASED ON THE FOURTH UNIVERSAL DEFINITIONS OF MYOCARDIALINFARCTION. THE UPPER REFERENCE LIMIT (URL) OF TROPONIN, DEFINED THE 99TH PERCENTILE OFcTnI DISTRIBUTION IN A REFERENCE POPULATION, HAS BEEN CONFIRMED THE DECISION THRESHOLDFOR [place] DIAGNOSIS. Performed By: #### B MARVIN FRENCH CMADM ####[facility] Mljbntfhbb49[address] [place], [place] [address]Dr. Garima Pulliam DORIS 83 ng/mL Normal 16-96 [facility] Comment on above: Performed By: #### B MARVIN FRENCH CMADM ####[facility] Gxbrnkdmdl[address] [place], [place] [address]Dr. Garima Pulliam CBC AUTO DIFFon 12-25-2022 BASO # 0.0 103/ul Normal 0.0-0.1 [facility] Comment on above: Performed By: #### C BC ####[facility] Bulmgxpeyk386[address] [place], [place] [address]Dr. Garima Pulliam Basophils/100 WBC (Bld) 0.0 % Critically low 0.2-2.0 [facility] Comment on above: Performed By: #### C BC ####[facility] Xorekiwbgp2163 [place] [address]Dr. Garima Pulliam EO # 0.0 103/ul Normal 0.0-0.7 [facility] Comment on above: Performed By: #### C BC ####[facility] Jonowyxxqf804[address] [place], [place] [address]Dr. Garima Pulliam Eosinophils/100 WBC (Bld) 0.7 % Critically low 0.9-7.0 [facility] Comment on above: Performed By: #### C BC ####[facility] Ekaghvziyd316[address] [place], [place] [address]Dr. Garima Pulliam Erythrocyte distribution width (RBC) [Ratio] 13.4 % Normal 11.0-15.0 [facility] Comment on above: Performed By: #### C BC ####[facility] Imcroyjtwv568[address] [place], [place] [address]Dr. Garima Pulliam Hematocrit (Bld) [Volume fraction] 42.9 % Normal 42.0-54.0 [facility] Comment on above: Performed By: #### C BC ####[facility] Xyalhqzxqo687[address] [place], [place] [address]Dr. Garima Pulliam Hemoglobin (Bld) [Mass/Vol] 14.4 g/dL Normal 14.0-18.0 [facility] Comment on above: Performed By: #### C BC ####[facility] Exutmgjomh8[address] [place], [place] [address]Dr. Garima Pulliam IG # 0.00 10e3/ul Normal 0.00-0.03 [facility] Comment on above: Performed By: #### C BC ####[facility] Qbnkcicpik56[address] [place], [place] [address]Dr. Garima Pulliam IG % 0.0 % Normal 0.0-0.5 [facility] Comment on above: Performed By: #### C BC ####[facility] Mvegvaozbp177[address] [place], [place] [address]Dr. Garima Pulliam LYMPH # 2.4 103/ul Normal 1.2-3.8 [facility] Comment on above: Performed By: #### C BC ####[facility] Ovkpkgoump0696 [place] [phone]. Chapisrenu Pulliam Lymphocytes/100 WBC (Bld) 29.2 % Normal 20.5-60.0 [facility] Comment on above: Performed By: #### C BC ####[facility] Xjilkoaaez0151 [place] [phone]. Garima Pulliam MANUAL DIFF REQ NO Normal [facility] Comment on above: Performed By: #### C BC ####[facility] Exvpegjqex1827 [place] [phone]. Garima Pulliam MCH (RBC) [Entitic mass] 30.7 pg Normal 25.9-34.0 [facility] Comment on above: Performed By: #### C BC ####[facility] Cxinoxghnu711[address] [place], [place] [address]Dr. Garima Pulliam MCHC (RBC) [Mass/Vol] 33.6 g/dL Normal 29.9-35.2 [facility] Comment on above: Performed By: #### C BC ####[facility] Gwzfunxcxt99[address] [place], [place] [address]Dr. Garima Pulliam MCV (RBC) [Entitic vol] 91.5 fL Normal 80.0-94.0 [facility] Comment on above: Performed By: #### C BC ####[facility] Lvlobkkjgy920[address] [place], [place] [address]Dr. Garima Pulliam MONO # 0.0 103/ul Critically low 0.3-0.8 [facility] Comment on above: Performed By: #### C BC ####[facility] Ygkzkilvmb4710 [place] [address]Dr. Garima Pulliam Monocytes/100 WBC (Bld) 8.0 % Normal 1.7-12.0 [facility] Comment on above: Performed By: #### C BC ####[facility] Tavddtjwal64[address] [place], [place] [address]Dr. Garima Pulliam NEUT # 5.1 103/ul Normal 1.4-6.5 [facility] Comment on above: Performed By: #### C BC ####[facility] Npywcigdja8234 [place], [place] [address]Dv. Garima Pulliam Neutrophils/100 WBC (Bld) 62.8 % Normal 43.0-75.0 [facility] Comment on above: Performed By: #### C BC ####[facility] Bhcdbsurtd6781 [place], [place] [address]Er. Garima Pulliam Platelet mean volume (Bld) [Entitic vol] 8.6 fL Critically low 9.5-13.5 [facility] Comment on above: Performed By: #### C BC ####[facility] Jxgndchkts4344 [place] [phone]. Garima Pulliam PLT 200 103/ul Normal 150-450 [facility] Comment on above: Performed By: #### C BC ####[facility] Zyppsdapyq0147 [place] [phone]. Garima Pulliam RBC 4.69 106/ul Critically low 4.70-6.10 [facility] Comment on above: Performed By: #### C BC ####[facility] Qqpiafmsan0990 [place], [place] [address]Zv. Garima Pulliam WBC 8.2 103/ul Normal 4.0-11.0 [facility] Comment on above: Performed By: #### C BC ####[facility] Wsyxkmhbag2619 [place], [place] [address]Qo. Garima Pulliam [facility]on SARS-CoV-2 (COVID-19) RNA MARIE+probe Ql (Unsp spec) Not detected Normal NOT DETECTED [facility] Comment on above: Result Comment: When diagnostic [...] for this test is supported by the Control Panel Tester of Health and Human Service's declaration that [...] be used). Performed By: #### C VDTBH ####[facility] Adjkgblenl64[address] [place], [place] [address]Dr. Garima Pulliam INFLUENZA A AND B AGon 12-25 INFLUANEGH SEE BELOW Normal [facility] Comment on above: Result Comment: Nega tive for Flu A protein angiten. Infection due to Flu A cannot be ruled out. Flu A angiten in the sample may be below the detection limit of the test. Performed By: #### I NFLUAB ####[facility] Ohdiezdoyl22[address] [place], [place] [address]Dr. Garima Pulliam INFLUBNEGH SEE BELOW Normal [facility] Comment on above: Result Comment: Nega tive for Flu B protein antigen. Infection due to Flu B cannot be ruled out. Flu B antigen in the sample may be below the detection limit of the test. Performed By: #### I NFLUAB ####[facility] Iffsmyadyb72[address] [place], [place] [address]Dr. Garima Pulliam INFLUENZA A AG Negative Normal NEGATIVE SEE COMMENT [facility] Comment on above: Performed By: #### I NFLUAB ####[facility] Rmqwwmnszo27[address] [place], [place] [address]Dr. renu [facility] INFLUENZA B AG Negative Normal NEGATIVE SEE COMMENT [facility] Comment on above: Performed By: #### I NFLUAB ####[facility] Ztdvpprtms[address] [place], [place] [address]Dr. Garima Pulliam PROF CHEM 8 (BAS METB)on Anion gap [Moles/Vol] 11.1 mmol/L Normal [facility] Comment on above: Performed By: #### B SUGAR CONTROLLER, BMP, CMADM ####[facility] Epoczpwigc312[address] [place], [place] [address]Dr. Garima Pulliam Calcium [Mass/Vol] 8.5 mg/dL Normal 8.5-10.1 [facility] Comment on above: Performed By: #### B SUGAR CONTROLLER, MARVIN, CMADM ####[facility] Pjyvzwlsrt3392 [place] [phone]. Garima Pulliam Chloride [Moles/Vol] 106 mmol/L Normal 98-107 [facility] Comment on above: Performed By: #### B SUGAR CONTROLLER, BMP, CMADM ####[facility] Ivqlvnaymh4815 [place] [address]Dr. Garima Pulliam CO2 [Moles/Vol] 27.4 mmol/L Normal 21.0-32.0 [facility] Comment on above: Performed By: #### B SUGAR CONTROLLER, MARVIN, CMADM ####[facility] Tghyfqujvx7848 [place] [address]Dr. Garima Pulliam Creatinine [Mass/Vol] 0.65 mg/dL Critically low 0.70-1.30 [facility] Comment on above: Performed By: #### B SUGAR CONTROLLER, MARVIN, CMADM ####[facility] Waxhteystb67[address] [place] [address]Dr. Garima Pulliam EGFR-AF LEBANESE >60 Normal >=60 [facility] Comment on above: Performed By: #### B SUGAR CONTROLLER, BMP, CMADM ####[facility] Xjqcvohfef6917 [place] [address]Dr. Garima Pulliam EGFR-NON AF LEBANESE >60 Normal >=60 [facility] Comment on above: Performed By: #### B SUGAR CONTROLLER, BMP, CMADM ####[facility] Xiqhlejfxn0721 [place] [address]Dr. Garima Pulliam Glucose [Mass/Vol] 140 mg/dL Critically high 74-106 [facility] Comment on above: Performed By: #### B SUGAR CONTROLLER, BMP, CMADM ####[facility] Dhbcgizshy6807 [place] [address]Dr. Garima Pulliam Potassium [Moles/Vol] 3.5 mmol/L Normal 3.5-5.1 [facility] Comment on above: Performed By: #### B SUGAR CONTROLLER, BMP, CMADM ####[facility] Tkvpgughop6521 [place] [address]Dr. Garima Pulliam Sodium [Moles/Vol] 141 mmol/L Normal 136-145 [facility] Comment on above: Performed By: #### B SUGAR CONTROLLER, BMP, CMADM ####[facility] Rjutetsfoz8489 [place] [address]Dr. Garima Pulliam Urea nitrogen [Mass/Vol] 8.0 mg/dL Normal 7.0-18.0 [facility] Comment on above: Performed By: #### B SUGAR CONTROLLER, BMP, CMADM ####[facility] Vvucclqhfh0108 [place] [address]Dr. Garima Pulliam Urea nitrogen/Creatinine [Mass ratio] 12.3 mg/mg Normal [facility] Comment on above: Performed By: #### B SUGAR CONTROLLER, BMP, CMADM ####[facility] Unqgfllfmi[address] [place], [place] [address]Dr. Garima Pulliam CARDIAC NASH ADMITon 023 CK [Catalytic activity/Vol] 165 U/L Normal 39-308 [facility] Comment on above: Performed By: #### B DAVID, CMADM ####[facility] Tzstsbfknf98[address] [place], [place] [address]Dr. Garima Pulliam CK.MB [Mass/Vol] 6.48 ng/mL Critically high <=3.60 [facility] Comment on above: Performed By: #### B MP, CMADM ####[facility] U[address]ztcrvnw[address] [place], [place] [address]Dr. Garima Pulliam HSTROP 11.7 pg/mL Normal 4.0-76.1 [facility] Comment on above: Result Comment: CUT- OFF POINTS HAVE BEEN ESTABLISHED BASED ON THE FOURTH UNIVERSAL DEFINITIONS OF MYOCARDIALINFARCTION. THE UPPER REFERENCE LIMIT (URL) OF TROPONIN, DEFINED THE 99TH PERCENTILE OFcTnI DISTRIBUTION IN A REFERENCE POPULATION, HAS BEEN CONFIRMED THE DECISION THRESHOLDFOR [place] DIAGNOSIS. Performed By: #### B MP, CMADM ####[facility] F[address]vbkqqueb[address] [place], [place] [address]Dr. Garima Pulliam DORIS 83 ng/mL Normal 16-96 [facility] Comment on above: Performed By: #### B MP, CMADM ####[facility] Ofjzojsmvn56[address] [place] [address]Dr. Garima Pulliam CBC AUTO DIFFon 12-10-2022 BASO # 0.0 103/ul Normal 0.0-0.1 [facility] Comment on above: Performed By: #### C BC ####[facility] [facility] [address]wlsath[address] [place], [place] [address]Dr. Garima Heraclio Basophils/100 WBC (Bld) 0.3 % Normal 0.2-2.0 [facility] Comment on above: Performed By: #### C BC ####[facility] Oomgorqtps[address] [place], [place] [address]Dr. Garima Pulliam EO # 0.1 103/ul Normal 0.0-0.7 [facility] Comment on above: Performed By: #### C BC ####[facility] Qsuffyfgih05[address] [place], [place] [address]Dr. Garima Pulliam Eosinophils/100 WBC (Bld) 0.4 % Critically low 0.9-7.0 [facility] Comment on above: Performed By: #### C BC ####[facility] Vfgbmrduix759[address] [place], [place] [address]Dr. Garima Pulliam Erythrocyte distribution width (RBC) [Ratio] 13.2 % Normal 11.0-15.0 [facility] Comment on above: Performed By: #### C BC ####[facility] Jzpenqlpzc[address] [place], [place] [address]Dr. Garima uPlliam Hematocrit (Bld) [Volume fraction] 42.4 % Normal 42.0-54.0 [facility] Comment on above: Performed By: #### C BC ####[facility] Dgidjqvnka[address] [place], [place] [address]Dr. Garima Pulliam Hemoglobin (Bld) [Mass/Vol] 14.4 g/dL Normal 14.0-18.0 [facility] Comment on above: Performed By: #### C BC ####[facility] Vgaoqqtgzr9551 [place] [id number]. Garima Heraclio IG # 0.05 10e3/ul Critically high 0.00-0.03 The [facility] Comment on above: Performed By: #### C BC ####[facility] Gxczvbktns06[address] [place] [address]Dr. Garima Heraclio IG % 0.4 % Normal 0.0-0.5 [facility] Comment on above: Performed By: #### C BC ####[facility] Wjqfjjysrc203[address] [place], [place] [address]Dr. Garima Pulliam LYMPH # 0.8 103/ul Critically low 1.2-3.8 The [facility] Comment on above: Performed By: #### C BC ####[facility] Vkzflpvbxf064[address] [place], [place] [address]Dr. Chapisrenu Pulliam Lymphocytes/100 WBC (Bld) 6.5 % Critically low 20.5-60.0 [facility] Comment on above: Performed By: #### C BC ####[facility] Lprjuphvue[address] [place], [place] [address]Dr. Chapisrenu Pulliam MANUAL DIFF REQ NO Normal [facility] Comment on above: Performed By: #### C BC ####[facility] Hmbfzzggyr[address] [place], [place] [address]DrAdalberto Garima Pulliam MCH (RBC) [Entitic mass] 30.5 pg Normal 25.9-34.0 [facility] Comment on above: Performed By: #### C BC ####[facility] Ximqbkwsop014[address] [place], [place] [address]DrAdalberto Garima Heraclio MCHC (RBC) [Mass/Vol] 34.0 g/dL Normal 29.9-35.2 [facility] Comment on above: Performed By: #### C BC ####[facility] Kuiaiozhup16[address] [place], [place] [address]DrAdalberto Garima Heraclio MCV (RBC) [Entitic vol] 89.8 fL Normal 80.0-94.0 [facility] Comment on above: Performed By: #### C BC ####[facility] Pjlsopbltz[address] [place], [place] [address]Dr. Garima Pulliam MONO # 0.2 103/ul Critically low 0.3-0.8 [facility] Comment on above: Performed By: #### C BC ####[facility] Cqxkpihtdo1996 [place] [phone]. Garima Pulliam Monocytes/100 WBC (Bld) 2.0 % Normal 1.7-12.0 [facility] Comment on above: Performed By: #### C BC ####[facility] Iksgyybbku9650 [place] [address]Dr. Chapisrenu Heraclio NEUT # 10.5 103/ul Critically high 1.4-6.5 The [facility] Comment on above: Performed By: #### C BC ####[facility] Rwkglrpcvk5917 [place] [address]Dr. Garima Pulliam Neutrophils/100 WBC (Bld) 90.4 % Critically high 43.0-75.0 [facility] Comment on above: Performed By: #### C BC ####[facility] Puuaqhcuox9616 [place] [address]Dr. Garima Pulliam Platelet mean volume (Bld) [Entitic vol] 9.4 fL Critically low 9.5-13.5 [facility] Comment on above: Performed By: #### C BC ####[facility] Hktactxrju3704 [place] [address]Dr. Garima Pulliam PLT 198 103/ul Normal 150-450 [facility] Comment on above: Performed By: #### C BC ####[facility] Hhziszxylh1909 [place] [address]Dr. Garima Pulliam RBC 4.72 106/ul Normal 4.70-6.10 [facility] Comment on above: Performed By: #### C BC ####[facility] Yxlyyufppl7495 [place] [phone]. Garima Pulliam WBC 11.6 103/ul Critically high 4.0-11.0 [facility] Comment on above: Performed By: #### C BC ####[facility] Pyjjnrjkft2183 [place] [address]DrAdalberto Pulliam PROF CHEM 8 (BAS METB)on Anion gap [Moles/Vol] 11.3 mmol/L Normal [facility] Comment on above: Performed By: #### B NANCY HERNANDEZ ####[facility] Vpjqdespvv1942 [place] [address]Dr. Garima Pulliam Calcium [Mass/Vol] 8.9 mg/dL Normal 8.5-10.1 [facility] Comment on above: Performed By: #### B NANCY HERNANDEZ ####[facility] Ccyqyydiug9468 [place] [address]Dr. Garima Pulliam Chloride [Moles/Vol] 103 mmol/L Normal 98-107 [facility] Comment on above: Performed By: #### B NANCY HERNANDEZ ####[facility] Evbpghjzpu[address] [place], [place] [address]Dr. Garima Pulliam CO2 [Moles/Vol] 28.2 mmol/L Normal 21.0-32.0 [facility] Comment on above: Performed By: #### NANCY Larkin MP ####[facility] Wsushleofa1691 [place] [address]Dr. Chapisrenu Pulliam Creatinine [Mass/Vol] 0.60 mg/dL Critically low 0.70-1.30 [facility] Comment on above: Performed By: #### NANCY Larkin MP ####[facility] Wfldqoysax3913 [place] [address]Dr. Garima Pulliam EGFR-AF LEBANESE >60 Normal >=60 [facility] Comment on above: Performed By: #### NANCY Larkin MP ####[facility] Mwbztalxfo8133 [place] [address]Dr. Garima Pulliam EGFR-NON AF LEBANESE >60 Normal >=60 [facility] Comment on above: Performed By: #### NANCY Larkin MP ####[facility] Uffzeohhca016[address] [place], [place] [address]Dr. Garima Pulliam Glucose [Mass/Vol] 166 mg/dL Critically high 74-106 [facility] Comment on above: Performed By: #### B MP, CMADM ####[facility] Eapqktqryd4646 [place] [address]Dr. Garima Pulliam Potassium [Moles/Vol] 3.5 mmol/L Normal 3.5-5.1 [facility] Comment on above: Performed By: #### B MP, CMADM ####[facility] Srqqarmqvm4922 [place] [address]Dr. Garima Pulliam Sodium [Moles/Vol] 139 mmol/L Normal 136-145 [facility] Comment on above: Performed By: #### B DAVID, CMADM ####[facility] Lmuwfqcrio5429 [place] [address]Dr. Garima Heraclio Urea nitrogen [Mass/Vol] 9.0 mg/dL Normal 7.0-18.0 [facility] Comment on above: Performed By: #### B DAVID, NANCY ####[facility] Wripqgyrtq[address] [place], [place] [address]Dr. Garima Heraclio Urea nitrogen/Creatinine [Mass ratio] 15.0 mg/mg Normal [facility] Comment on above: Performed By: #### B DAVID, CMAANA ROSA ####[facility] Yambkascly[address] [place], [place] [address]Dr. Garima Pulliam XR CHEST 1 Von 12-10-2022 XR CHEST 1 V Normal [facility] BNPon 11-27-2022 Natriuretic peptide B (Bld) [Mass/Vol] 95.0 pg/mL Normal <=900.0 [facility] Comment on above: Performed By: #### C MP, HSTROPN, BNP ####[facility] Hjjzsdgdes457[address] [place], [place] [address]Dr. Garima Heraclio CBC AUTO DIFFon 11-27-2022 BASO # 0.0 103/ul Normal 0.0-0.1 [facility] Comment on above: Performed By: #### C BC ####[facility] Nxbtwlqnxx12[address] [place], [place] [address]Dr. Garima Heraclio Basophils/100 WBC (Bld) 0.2 % Normal 0.2-2.0 [facility] Comment on above: Performed By: #### C BC ####[facility] Xvfyjkhrmu5498 [place] [phone]. Garima Pulliam EO # 0.2 103/ul Normal 0.0-0.7 [facility] Comment on above: Performed By: #### C BC ####[facility] Bhfsvyawvk8075 [place] [phone]. Garima Pulliam Eosinophils/100 WBC (Bld) 2.0 % Normal 0.9-7.0 [facility] Comment on above: Performed By: #### C BC ####[facility] Bnmlqnkmmr[address] [place], [place] [address]Dr. Garima Pulliam Erythrocyte distribution width (RBC) [Ratio] 13.2 % Normal 11.0-15.0 [facility] Comment on above: Performed By: #### C BC ####[facility] Wecibuvjmz9[address] [place], [place] [address]Dr. Garima Pulliam Hematocrit (Bld) [Volume fraction] 42.4 % Normal 42.0-54.0 [facility] Comment on above: Performed By: #### C BC ####[facility] Jqpmqpqdgj[address] [place], [place] [address]Dr. Garima Pulliam Hemoglobin (Bld) [Mass/Vol] 14.4 g/dL Normal 14.0-18.0 [facility] Comment on above: Performed By: #### C BC ####[facility] Yppypixdhe12[address] [place], [place] [address]Dr. Garima Pulliam IG # 0.04 10e3/ul Critically high 0.00-0.03 [facility] Comment on above: Performed By: #### C BC ####[facility] Yeptwmcvrk919[address] [place], [place] [address]Dr. Garima Pulliam IG % 0.4 % Normal 0.0-0.5 [facility] Comment on above: Performed By: #### C BC ####[facility] Zuahyomgky468[address] [place], [place] [address]Dr. Garima Pulliam LYMPH # 2.2 103/ul Normal 1.2-3.8 [facility] Comment on above: Performed By: #### C BC ####[facility] Mjaedjvmsa[address] [place] [phone]. Garima Pulliam Lymphocytes/100 WBC (Bld) 21.5 % Normal 20.5-60.0 [facility] Comment on above: Performed By: #### C BC ####[facility] Zgwhydtnej6703 [place] [phone]. Garima Heraclio MANUAL DIFF REQ NO Normal [facility] Comment on above: Performed By: #### C BC ####[facility] Obsjmmosxf9292 [place] [phone]. Garima Heraclio MCH (RBC) [Entitic mass] 30.4 pg Normal 25.9-34.0 [facility] Comment on above: Performed By: #### C BC ####[facility] Netetpwalk0447 [place] [address]Dr. Garima Heraclio MCHC (RBC) [Mass/Vol] 34.0 g/dL Normal 29.9-35.2 [facility] Comment on above: Performed By: #### C BC ####[facility] Pkrthnekpt9074 [place] [phone]. Garima Pulliam MCV (RBC) [Entitic vol] 89.6 fL Normal 80.0-94.0 [facility] Comment on above: Performed By: #### C BC ####[facility] Qytrjwchoe8179 [place] [phone]. Garima Pulliam MONO # 0.8 103/ul Normal 0.3-0.8 [facility] Comment on above: Performed By: #### C BC ####[facility] Xzlarmqqyo2827 [place] [phone]. Chapisrenu Pulliam Monocytes/100 WBC (Bld) 7.7 % Normal 1.7-12.0 [facility] Comment on above: Performed By: #### C BC ####[facility] Ltaifwaxrp94[address] [place], [place] [address]Dr. Garima Pulliam NEUT # 7.0 103/ul Critically high 1.4-6.5 [facility] Comment on above: Performed By: #### C BC ####[facility] Kghczxsztl5963 [place] [phone]. Garima Pulliam Neutrophils/100 WBC (Bld) 68.2 % Normal 43.0-75.0 [facility] Comment on above: Performed By: #### C BC ####[facility] Fgzimgbsrm1606 [place] [phone]. Chapisrenu Pulliam Platelet mean volume (Bld) [Entitic vol] 8.9 fL Critically low 9.5-13.5 [facility] Comment on above: Performed By: #### C BC ####[facility] Qkvpgaogwa7327 [place] [address]Dr. Garima Pulliam PLT 222 103/ul Normal 150-450 [facility] Comment on above: Performed By: #### C BC ####[facility] Vuwgiuawxd7909 [place] [address]Dr. Garima Pulliam RBC 4.73 106/ul Normal 4.70-6.10 [facility] Comment on above: Performed By: #### C BC ####[facility] Xuxhiaignu8997 [place] [address]Dr. Garima Pulliam WBC 10.3 103/ul Normal 4.0-11.0 [facility] Comment on above: Performed By: #### C BC ####[facility] Tiqvrgigen2097 [place] [address]Dr. Garima Pulliam PROF 14(COMP METB)on 023 Albumin [Mass/Vol] 3.7 g/dL Normal 3.4-5.0 [facility] Comment on above: Performed By: #### C MP, HSTROPN, BNP ####[facility] Mkkfsgegqv9525 [place] [address]Dr. Chapisrenu Pulliam Albumin/Globulin [Mass ratio] 1.5 {ratio} Normal [facility] Comment on above: Performed By: #### C MP, HSTROPN, BNP ####[facility] Ocyivdzjjv6780 [place] [address]Dr. Garima Pulliam ALP [Catalytic activity/Vol] 79 U/L Normal 46-116 [facility] Comment on above: Performed By: #### C MP, HSTROPN, BNP ####[facility] Gbfwxedrtt4125 [place] [address]Dr. Garima Pulliam ALT [Catalytic activity/Vol] 32 U/L Normal 16-63 [facility] Comment on above: Performed By: #### C MP, HSTROPN, BNP ####[facility] Wlvoahybcm3571 [place] [address]Dr. Garima Pulliam Anion gap [Moles/Vol] 9.5 mmol/L Normal [facility] Comment on above: Performed By: #### C MP, HSTROPN, BNP ####[facility] Jphpteodfd19[address] [place], [place] [address]Dr. Garima Pulliam AST [Catalytic activity/Vol] 25 U/L Normal 15-37 [facility] Comment on above: Performed By: #### C MP, HSTROPN, BNP ####[facility] Dogwuzhahz50[address] [place], [place] [address]Dr. Chapislan Pulliam Bilirubin [Mass/Vol] 0.4 mg/dL Normal 0.2-1.0 [facility] Comment on above: Performed By: #### C MP, HSTROPN, BNP ####[facility] Bjktesovrr153[address] [place], [place] [address]Dr. Garima Pulliam Calcium [Mass/Vol] 8.9 mg/dL Normal 8.5-10.1 [facility] Comment on above: Performed By: #### C MP, HSTROPN, BNP ####[facility] Xxvlkmhnfg428[address] [place], [place] [address]Dr. Chapislan Pulliam Chloride [Moles/Vol] 103 mmol/L Normal 98-107 [facility] Comment on above: Performed By: #### C MP, HSTROPN, BNP ####[facility] Mvuyhsuqcf205[address] [place], [place] [address]Dr. Yilan Pulliam CO2 [Moles/Vol] 28.6 mmol/L Normal 21.0-32.0 [facility] Comment on above: Performed By: #### C MP, HSTROPN, BNP ####[facility] Ercczrrvti3665 [place] [address]Dr. Garima Pulliam Creatinine [Mass/Vol] 0.72 mg/dL Normal 0.70-1.30 [facility] Comment on above: Performed By: #### C MP, HSTROPN, BNP ####[facility] Besirayaxm3586 [place] [address]Dr. Garima Pulliam EGFR-AF LEBANESE >60 Normal >=60 [facility] Comment on above: Performed By: #### C MP, HSTROPN, BNP ####[facility] Tprzxabznt7527 [place] [address]Dr. Garima Pulliam EGFR-NON AF LEBANESE >60 Normal >=60 [facility] Comment on above: Performed By: #### C MP, HSTROPN, BNP ####[facility] Shbcniernl0550 [place] [address]Dr. Garima Pulliam Globulin (S) [Mass/Vol] 2.5 g/dL Normal [facility] Comment on above: Performed By: #### C MP, HSTROPN, BNP ####[facility] Ibainxyevo[address] [place], [place] [address]Dr. Garima Pulliam Glucose [Mass/Vol] 114 mg/dL Critically high 74-106 [facility] Comment on above: Performed By: #### C MP, HSTROPN, BNP ####[facility] Vviyqlldva[address] [place], [place] [address]Dr. Garima Pulliam Potassium [Moles/Vol] 4.1 mmol/L Normal 3.5-5.1 [facility] Comment on above: Performed By: #### C MP, HSTROPN, BNP ####[facility] Uzdykylulo[address] [place], [place] [address]Dr. Garima Pulliam Protein [Mass/Vol] 6.2 g/dL Critically low 6.4-8.2 [facility] Comment on above: Performed By: #### C MP, HSTROPN, BNP ####[facility] Qetuilzcyq225[address] [place], [place] [address]Dr. Yilan Pulliam Sodium [Moles/Vol] 137 mmol/L Normal 136-145 [facility] Comment on above: Performed By: #### C MP, HSTROPN, BNP ####[facility] Xrmjgpqwmm7841 [place] [address]Dr. Garima Pulliam Urea nitrogen [Mass/Vol] 13.0 mg/dL Normal 7.0-18.0 [facility] Comment on above: Performed By: #### C MP, HSTROPN, BNP ####[facility] Advbvxmbae1030 [place] [address]Dr. Garima Pulliam Urea nitrogen/Creatinine [Mass ratio] 18.1 mg/mg Normal [facility] Comment on above: Performed By: #### C MP, HSTROPN, BNP ####[facility] Ihrtjxtddo8[address] [place], [place] [address]Dr. Garima Pulliam TROPONIN, HIGH SENSITIVITYon 11-27-2022 HSTROP 11.8 pg/mL Normal 4.0-76.1 [facility] Comment on above: Result Comment: CUT- OFF POINTS HAVE BEEN ESTABLISHED BASED ON THE FOURTH UNIVERSAL DEFINITIONS OF MYOCARDIALINFARCTION. THE UPPER REFERENCE LIMIT (URL) OF TROPONIN, DEFINED THE 99TH PERCENTILE OFcTnI DISTRIBUTION IN A REFERENCE POPULATION, HAS BEEN CONFIRMED THE DECISION THRESHOLDFOR [place] DIAGNOSIS. Performed By: #### C MP, HSTROPN, BNP ####[facility] Pwvlezqzpo90[address] [place], [place] [address]Dr. Garima Pulliam XR CHEST 1 Von 11-27-2022 XR CHEST 1 V Normal [facility] BNPon 11-20-2022 Natriuretic peptide B (Bld) [Mass/Vol] 73.0 pg/mL Normal <=900.0 [facility] Comment on above: Performed By: #### B MP, HSTROPN, BNP ####[facility] Bcbkehmxlx229[address] [place], [place] [address]Dr. Garima Pulliam CBC AUTO DIFFon 11-20-2022 BASO # 0.0 103/ul Normal 0.0-0.1 [facility] Comment on above: Performed By: #### C BC ####[facility] Uayujklmgr6442 [place] [phone]. Garima Pulliam Basophils/100 WBC (Bld) 0.3 % Normal 0.2-2.0 [facility] Comment on above: Performed By: #### C BC ####[facility] Idamrctkhm8797 [place] [phone]. Garima Pulliam EO # 0.2 103/ul Normal 0.0-0.7 [facility] Comment on above: Performed By: #### C BC ####[facility] Eoehzaykqe8185 [place] [address]Dr. Garima Pulliam Eosinophils/100 WBC (Bld) 2.1 % Normal 0.9-7.0 [facility] Comment on above: Performed By: #### C BC ####[facility] Jlbhmglglj240[address] [place], [place] [address]Dr. Garima Pulliam Erythrocyte distribution width (RBC) [Ratio] 13.2 % Normal 11.0-15.0 [facility] Comment on above: Performed By: #### C BC ####[facility] Hosjfdzfmc994[address] [place], [place] [address]Dr. Garima Pulliam Hematocrit (Bld) [Volume fraction] 43.4 % Normal 42.0-54.0 [facility] Comment on above: Performed By: #### C BC ####[facility] Zhoegbdkfn[address] [place], [place] [address]Dr. Garima Pulliam Hemoglobin (Bld) [Mass/Vol] 14.6 g/dL Normal 14.0-18.0 [facility] Comment on above: Performed By: #### C BC ####[facility] Galsaluuwb4456 [place] [phone]. Garima Pulliam IG # 0.02 10e3/ul Normal 0.00-0.03 [facility] Comment on above: Performed By: #### C BC ####[facility] Emoofpvkfw2292 [place] [address]Dr. Garima Pulliam IG % 0.2 % Normal 0.0-0.5 [facility] Comment on above: Performed By: #### C BC ####[facility] Povvgbtbti4172 [place] [phone]. Garima Heraclio LYMPH # 2.1 103/ul Normal 1.2-3.8 [facility] Comment on above: Performed By: #### C BC ####[facility] Ewrzihhpjv1458 [place] [phone]. Garima Heraclio Lymphocytes/100 WBC (Bld) 19.2 % Critically low 20.5-60.0 [facility] Comment on above: Performed By: #### C BC ####[facility] Denfcgyths0128 [place] [phone]. Chapisrenu Pulliam MANUAL DIFF REQ NO Normal [facility] Comment on above: Performed By: #### C BC ####[facility] Mfriselbpq9000 [place] [phone]. Garima Heraclio MCH (RBC) [Entitic mass] 30.4 pg Normal 25.9-34.0 [facility] Comment on above: Performed By: #### C BC ####[facility] Sxsukjpeww0761 [place] [address]Dr. Garima Pulliam MCHC (RBC) [Mass/Vol] 33.6 g/dL Normal 29.9-35.2 [facility] Comment on above: Performed By: #### C BC ####[facility] Uyutkbesxa9355 [place] [phone]. Garima Heraclio MCV (RBC) [Entitic vol] 90.4 fL Normal 80.0-94.0 [facility] Comment on above: Performed By: #### C BC ####[facility] Abbrpigipd9444 [place] [phone]. Garima Heraclio MONO # 0.6 103/ul Normal 0.3-0.8 [facility] Comment on above: Performed By: #### C BC ####[facility] Jkqhjndiry9557 [place] [address]Dr. Garima Heraclio Monocytes/100 WBC (Bld) 5.8 % Normal 1.7-12.0 [facility] Comment on above: Performed By: #### C BC ####[facility] Qmcgrfiapo9046 [place], [place] [address]Pn. Garima Pulliam NEUT # 7.8 103/ul Critically high 1.4-6.5 [facility] Comment on above: Performed By: #### C BC ####[facility] Qlbpzufzqu5674 [place] [phone]. Garima Pulliam Neutrophils/100 WBC (Bld) 72.4 % Normal 43.0-75.0 [facility] Comment on above: Performed By: #### C BC ####[facility] Eolbzfqvvi4980 [place] [phone]. Garima Pulliam Platelet mean volume (Bld) [Entitic vol] 8.7 fL Critically low 9.5-13.5 [facility] Comment on above: Performed By: #### C BC ####[facility] Lymfdbwxsw8802 [place] [phone]. Garima Pulliam PLT 184 103/ul Normal 150-450 [facility] Comment on above: Performed By: #### C BC ####[facility] Nxwidfiyap8190 [place], [place] [address]Eb. Garima Pulliam RBC 4.80 106/ul Normal 4.70-6.10 [facility] Comment on above: Performed By: #### C BC ####[facility] Lepfggucix4474 [place] [phone]. Garima Pulliam WBC 10.8 103/ul Normal 4.0-11.0 [facility] Comment on above: Performed By: #### C BC ####[facility] Ujftapfrxh1508 [place] [phone]. Garima Pulliam [facility] ([facility]on 10-24 SARS-CoV-2 (COVID-19) RNA MARIE+probe Ql (Unsp spec) Not detected Normal NOT DETECTED [facility] Comment on above: Result Comment: When diagnostic [...] for this test is supported by the [place] of Health and Human Service's declaration that [...] be used). Performed By: #### C VDTBH ####[facility] Faraujyirr[address] [place], [place] [address]Dr. Garima Pulliam INFLUENZA A AND B AGon 11-20 [facility] SEE BELOW Normal [facility] Comment on above: Result Comment: Nega tive for Flu A protein angiten. Infection due to Flu A cannot be ruled out. Flu A angiten in the sample may be below the detection limit of the test. Performed By: #### I NFLUAB ####[facility] Ncwmqnltoq[address] [place], [place] [address]Dr. Garima Pulliam INFLUBNEGH SEE BELOW Normal [facility] Comment on above: Result Comment: Nega tive for Flu B protein antigen. Infection due to Flu B cannot be ruled out. Flu B antigen in the sample may be below the detection limit of the test. Performed By: #### I NFLUAB ####[facility] Szdsnucjni60[address] [place], [place] [address]Dr. Garima Pulliam INFLUENZA A AG Negative Normal NEGATIVE SEE COMMENT [facility] Comment on above: Performed By: #### I NFLUAB ####[facility] Dtsrkrtybf0664[address] [place], [place] [address]Dr. Garima [facility] INFLUENZA B AG Negative Normal NEGATIVE SEE COMMENT [facility] Comment on above: Performed By: #### I NFLUAB ####[facility] Ydnjumpnmn30[address] [place], [place] [address]Dr. Garima Pulliam PROF CHEM 8 (BAS METB)on Anion gap [Moles/Vol] 8.2 mmol/L Normal [facility] Comment on above: Performed By: #### B MP, HSTROPN, BNP ####[facility] Aoufoblynw2275 [place] [address]Dr. Garima Pulliam Calcium [Mass/Vol] 8.7 mg/dL Normal 8.5-10.1 [facility] Comment on above: Performed By: #### B MP, HSTROPN, BNP ####[facility] Vreovzvbmm0605 [place] [address]Dr. Garima Pulliam Chloride [Moles/Vol] 103 mmol/L Normal 98-107 [facility] [facility] Comment on above: Performed By: #### B MP, HSTROPN, BNP ####[facility] Zadflpjahf[address] [place], [place] [address]Dr. Garima Pulliam CO2 [Moles/Vol] 29.4 mmol/L Normal 21.0-32.0 [facility] Comment on above: Performed By: #### B MP, HSTROPN, BNP ####[facility] Dklxuqbjud[address] [place], [place] [address]Dr. Garima Pulliam Creatinine [Mass/Vol] 0.69 mg/dL Critically low 0.70-1.30 [facility] Comment on above: Performed By: #### B MP, HSTROPN, BNP ####[facility] [address] [place] [address]Dr. Garima Pulliam EGFR-AF LEBANESE >60 Normal >=60 [facility] Comment on above: Performed By: #### B MP, HSTROPN, BNP ####[facility] Zvndarxvwe67[address] [place], [place] [address]Dr. Garima Pulliam EGFR-NON AF LEBANESE >60 Normal >=60 [facility] Comment on above: Performed By: #### B MP, HSTROPN, BNP ####[facility] Jvrgdbrwzx[address] [place] [address]Dr. Garima Pulliam Glucose [Mass/Vol] 209 mg/dL Critically high 74-106 T [facility] Comment on above: Performed By: #### B MP, HSTROPN, BNP ####[facility] [address]xuv[address]jouwe[address] [place] [address]Dr. Garima Pulliam Potassium [Moles/Vol] 3.6 mmol/L Normal 3.5-5.1 [facility] Comment on above: Performed By: #### B MP, HSTROPN, BNP ####[facility] [address]rsuvpthj[address] [place] [address]Dr. Garima Pulliam Sodium [Moles/Vol] 137 mmol/L Normal 136-145 [facility] Comment on above: Performed By: #### B MP, HSTROPN, BNP ####[facility] Ygvsagshfv[address] [place] [address]Dr. Garima Pulliam Urea nitrogen [Mass/Vol] 11.0 mg/dL Normal 7.0-18.0 [facility] Comment on above: Performed By: #### B MP, HSTROPN, BNP ####[facility] Znthyscwom[address] [place] [address]Dr. Garima Pulliam Urea nitrogen/Creatinine [Mass ratio] 15.9 mg/mg Normal [facility] Comment on above: Performed By: #### B MP, HSTROPN, BNP ####[facility] Yslfrbtkzi6[address] [place] [address]Dr. Garima Pulliam TROPONIN, HIGH SENSITIVITYon 11-20-2022 HSTROP 8.7 pg/mL Normal 4.0-76.1 [facility] Comment on above: Result Comment: CUT- OFF POINTS HAVE BEEN ESTABLISHED BASED ON THE FOURTH UNIVERSAL DEFINITIONS OF MYOCARDIALINFARCTION. THE UPPER REFERENCE LIMIT (URL) OF TROPONIN, DEFINED THE 99TH PERCENTILE OFcTnI DISTRIBUTION IN A REFERENCE POPULATION, HAS BEEN CONFIRMED THE DECISION THRESHOLDFOR [place] DIAGNOSIS. Performed By: #### B MP, HSTROPN, BNP ####[facility] [address] [place] [address]Dr. Garima Pulliam XR CHEST 1 Von 11-20-2022 XR CHEST 1 V Normal [facility] XR CHEST 1 Von 10-02-2022 XR CHEST 1 V Normal [facility] BNPon 09-29-2022 Natriuretic peptide B (Bld) [Mass/Vol] 107.0 pg/mL Normal <=900.0 [facility] Comment on above: Performed By: #### C MP, BNP, CMADM ####[facility] Zzowkyetxg[address] [place] [address]Dr. Garima Pulliam CARDIAC NASH ADMITon 022 CK [Catalytic activity/Vol] 190 U/L Normal 39-308 [facility] Comment on above: Performed By: #### C MP, BNP, CMADM ####[facility] Dtfcpewcus[address] [place] [address]Dr. Garima Heraclio CK.MB [Mass/Vol] 11.11 ng/mL Critically high <=3.60 [facility] Comment on above: Performed By: #### C MP, BNP, CMADM ####[facility] Vqvyqiwoml[address] [place] [address]Dr. Garima Pulliam HSTROP 11.8 pg/mL Normal 4.0-76.1 [facility] Comment on above: Result Comment: CUT- OFF POINTS HAVE BEEN ESTABLISHED BASED ON THE FOURTH UNIVERSAL DEFINITIONS OF MYOCARDIALINFARCTION. THE UPPER REFERENCE LIMIT (URL) OF TROPONIN, DEFINED THE 99TH PERCENTILE OFcTnI DISTRIBUTION IN A REFERENCE POPULATION, HAS BEEN CONFIRMED THE DECISION THRESHOLDFOR [place] DIAGNOSIS. Performed By: #### C MP, BNP, CMADM ####[facility] Crkrowcvdz[address] [place] [address]Dr. Garima Pulliam DORIS 133 ng/mL Critically high 16-96 [facility] Comment on above: Performed By: #### C MP, BNP, CMADM ####[facility] Tk[address]fzigzs[address] [place] [address]Dr. Garima Heraclio CBC AUTO DIFFon 09-29-2022 BASO # 0.0 103/ul Normal 0.0-0.1 [facility] Comment on above: Performed By: #### C BC ####[facility] Bmtrujmkig6[address] [place] [address]Dr. Garima Heraclio Basophils/100 WBC (Bld) 0.2 % Normal 0.2-2.0 [facility] Comment on above: Performed By: #### C BC ####[facility] Jmszcgoraw2366 [place] [id number]. Garima Pulliam EO # 0.1 103/ul Normal 0.0-0.7 [facility] Comment on above: Performed By: #### C BC ####[facility] Alowvvmyqh4546 [place] [id number]. Garima Pulliam Eosinophils/100 WBC (Bld) 1.4 % Normal 0.9-7.0 [facility] Comment on above: Performed By: #### C BC ####[facility] Famqfvbnrc9[address] [place], [place] [address]Dr. Garima Pulliam Erythrocyte distribution width (RBC) [Ratio] 13.7 % Normal 11.0-15.0 [facility] Comment on above: Performed By: #### C BC ####[facility] Rlfxlwwnkm[address] [place], [place] [address]Dr. Garima Pulliam Hematocrit (Bld) [Volume fraction] 45.4 % Normal 42.0-54.0 [facility] Comment on above: Performed By: #### C BC ####[facility] Iivksqksao[address] [place], [place] [address]Dr. Garima Pulliam Hemoglobin (Bld) [Mass/Vol] 14.8 g/dL Normal 14.0-18.0 [facility] Comment on above: Performed By: #### C BC ####[facility] Sspxjcrmzq[address] [place], [place] [address]Dr. Garima Pulliam IG # 0.04 10e3/ul Critically high 0.00-0.03 [facility] Comment on above: Performed By: #### C BC ####[facility] Nwsahizrxh97[address] [place], [place] [address]Dr. Garima Pulliam IG % 0.5 % Normal 0.0-0.5 [facility] Comment on above: Performed By: #### C BC ####[facility] Lxfpdordzo8[address] [place], [place] [address]Dr. Garima Pulliam LYMPH # 1.1 103/ul Critically low 1.2-3.8 [facility] Comment on above: Performed By: #### C BC ####[facility] Jpopuwcciv3429 [place] [id number]. Garima Pulliam Lymphocytes/100 WBC (Bld) 12.7 % Critically low 20.5-60.0 [facility] Comment on above: Performed By: #### C BC ####[facility] Azxwsvohpb8359 [place] [phone]. Chapisrenu Pulliam MANUAL DIFF REQ NO Normal [facility] Comment on above: Performed By: #### C BC ####[facility] Apohsiiqxy[address] [place], [place] [id number]. Garima Heraclio MCH (RBC) [Entitic mass] 30.0 pg Normal 25.9-34.0 [facility] Comment on above: Performed By: #### C BC ####[facility] Rovfwilszl7[address] [place], [place] [address]Dr. Garima Heraclio MCHC (RBC) [Mass/Vol] 32.6 g/dL Normal 29.9-35.2 [facility] Comment on above: Performed By: #### C BC ####[facility] Wtfjayepuf[address] [place], [place] [address]Dr. Garima Heraclio MCV (RBC) [Entitic vol] 91.9 fL Normal 80.0-94.0 [facility] Comment on above: Performed By: #### C BC ####[facility] Avzcrrwcpy65[address] [place], [place] [address]Dr. Garima Pulliam MONO # 0.4 103/ul Normal 0.3-0.8 [facility] Comment on above: Performed By: #### C BC ####[facility] Jrsodsfrdi[address] [place], [place] [address]Dr. Chapisrenu Pulliam Monocytes/100 WBC (Bld) 4.8 % Normal 1.7-12.0 [facility] Comment on above: Performed By: #### C BC ####[facility] Uoswmbqufr[address] [place], [place] [address]Dr. Garima Pulliam NEUT # 7.1 103/ul Critically high 1.4-6.5 [facility] Comment on above: Performed By: #### C BC ####[facility] Bwraqwxdnw50[address] [place], [place] [address]Vv. Garima Pulliam Neutrophils/100 WBC (Bld) 80.4 % Critically high 43.0-75.0 [facility] Comment on above: Performed By: #### C BC ####[facility] Cfiuyedcvz6735 [place] [phone]. Garima Pulliam Platelet mean volume (Bld) [Entitic vol] 9.1 fL Critically low 9.5-13.5 [facility] Comment on above: Performed By: #### C BC ####[facility] Rkkmwuynto7748 [place] [phone]. Garima Pulliam PLT 200 103/ul Normal 150-450 [facility] Comment on above: Performed By: #### C BC ####[facility] Hmtvtlqbkc8133 [place] [phone]. Garima Pulliam RBC 4.94 106/ul Normal 4.70-6.10 [facility] Comment on above: Performed By: #### C BC ####[facility] Jvkzlawkbq0764 [place] [phone]. Garima Pulliam WBC 8.9 103/ul Normal 4.0-11.0 [facility] Comment on above: Performed By: #### C BC ####[facility] Xelmvujdkw6046 [place] [phone]. Garima Pulliam Covid-19 PCR (CVDTB)on SARS-CoV-2 (COVID-19) RNA MARIE+probe Ql (Unsp spec) Not detected Normal NOT DETECTED [facility] Comment on above: Result Comment: When diagnostic [...] for this test is supported by the [place] of Health and Human Service's declaration that [...] be used). Performed By: #### C VDTBH ####[facility] Ipgxilzhld[address] [place] [address]Dr. Garima Pulliam LACTATE/LACTIC ACIDon 2021 Lactate [Moles/Vol] 1.7 mmol/L Normal 0.4-1.9 [facility] Comment on above: Performed By: #### L ACT ####[facility] Tqdidjvbxx[address] [place], [place] [address]Dr. Garima Pulliam PROF 14(COMP METB)on 022 Albumin [Mass/Vol] 3.8 g/dL Normal 3.4-5.0 [facility] Comment on above: Performed By: #### C MP, BNP, CMADM ####[facility] Jzmqtdprcz[address] [place], [place] [address]Dr. Garima Pulliam Albumin/Globulin [Mass ratio] 1.5 {ratio} Normal [facility] Comment on above: Performed By: #### C MP, BNP, CMADM ####[facility] Dctfmkttnq5[address] [place] [address]Dr. Garima Pulliam ALP [Catalytic activity/Vol] 62 U/L Normal 46-116 [facility] Comment on above: Performed By: #### C MP, BNP, CMADM ####[facility] Ouzisaemzu[address] [place] [address]Dr. Garima Pulliam ALT [Catalytic activity/Vol] 37 U/L Normal 16-63 [facility] Comment on above: Performed By: #### C MP, BNP, CMADM ####[facility] Twqanabxis026[address] [place] [address]Dr. Garima Pulliam Anion gap [Moles/Vol] 8.0 mmol/L Normal [facility] Comment on above: Performed By: #### C MP, BNP, CMADM ####[facility] Yvakqztfoa4[address] [place] [address]Dr. Garima Pulliam AST [Catalytic activity/Vol] 20 U/L Normal 15-37 [facility] Comment on above: Performed By: #### C MP, BNP, CMADM ####[facility] Wcgrcxoqlz[address] [place] [address]Dr. Garima Pulliam Bilirubin [Mass/Vol] 0.6 mg/dL Normal 0.2-1.0 [facility] Comment on above: Performed By: #### C MP, BNP, CMADM ####[facility] Cbjxaosrit3599 [place] [address]Dr. Garima Pulliam Calcium [Mass/Vol] 9.1 mg/dL Normal 8.5-10.1 [facility] Comment on above: Performed By: #### C MP, BNP, CMADM ####[facility] [address]ovkmlq99[address] [place], [place] [address]Dr. Garima Pulliam Chloride [Moles/Vol] 103 mmol/L Normal 98-107 [facility] Comment on above: Performed By: #### C MP, BNP, CMADM ####[facility] Xslyyxnrvl[address] [place], [place] [address]Dr. Garima Pulliam CO2 [Moles/Vol] 31.8 mmol/L Normal 21.0-32.0 [facility] Comment on above: Performed By: #### C MP, BNP, CMADM ####[facility] Gyrxdwjxmt[address] [place], [place] [address]Dr. Garima Pulliam Creatinine [Mass/Vol] 0.63 mg/dL Critically low 0.70-1.30 [facility] Comment on above: Performed By: #### C MP, BNP, CMADM ####[facility] M[address]jcyvtzlh[address] [place], [place] [address]Dr. Garima Pulliam EGFR-AF LEBANESE >60 Normal >=60 [facility] Comment on above: Performed By: #### C MP, BNP, CMADM ####[facility] Yjojvekhop[address] [place], [place] [address]Dr. Garima Pulliam EGFR-NON AF LEBANESE >60 Normal >=60 [facility] Comment on above: Performed By: #### C MP, BNP, CMADM ####[facility] Fwjejsauzx69[address] [place] [address]Dr. Garima Pulliam Globulin (S) [Mass/Vol] 2.6 g/dL Normal [facility] Comment on above: Performed By: #### C MP, BNP, CMADM ####[facility] Xgadgjceiu264[address] [place] [address]Dr. Garima Pulliam Glucose [Mass/Vol] 103 mg/dL Normal 74-106 [facility] Comment on above: Performed By: #### C MP, BNP, CMADM ####[facility] Ajzmmtxqim16[address] [place] [address]Dr. Garima Pulliam Potassium [Moles/Vol] 3.8 mmol/L Normal 3.5-5.1 [facility] Comment on above: Performed By: #### C MP, BNP, CMADM ####[facility] Rzowgxoosr7[address] [place] [address]Dr. Garima Pulliam Protein [Mass/Vol] 6.4 g/dL Normal 6.4-8.2 [facility] Comment on above: Performed By: #### C MP, BNP, CMADM ####[facility] Yrvzlpvpce[address] [place] [address]Dr. Garima Pulliam Sodium [Moles/Vol] 139 mmol/L Normal 136-145 [facility] Comment on above: Performed By: #### C MP, BNP, CMADM ####[facility] Enqiznmbqk5353 [place] [address]Dr. Garima Pulliam Urea nitrogen [Mass/Vol] 7.0 mg/dL Normal 7.0-18.0 [facility] Comment on above: Performed By: #### C MP, BNP, CMADM ####[facility] Mxjimghkbe9[address] [place] [address]Dr. Garima Pulliam Urea nitrogen/Creatinine [Mass ratio] 11.1 mg/mg Normal [facility] Comment on above: Performed By: #### C MP, BNP, CMADM ####[facility] Stmpjrmazq[address] [place] [address]Dr. Garima Pulliam PROTIMEon 09-29-2022 INR Coag (PPP) [Relative time] 1.14 {INR} Normal [facility] Comment on above: Performed By: #### P T, PTT ####[facility] W[address]zcfawol[address] [place], [place] [address]Dr. Garima Pulliam INR GUIDELINES SEE BELOW Normal [facility] Comment on above: Result Comment: WESLEY RED INR: 2.0 - 3.0 CONDITIONS NOT LISTED BELOW 2.5 - 3.5 FOR PROSTHETIC HEART VALVE REPLACEMENT 2.5 - 3.5 RECURRENT THROMBOSIS Performed By: #### P T, PTT ####[facility] Updpcbxsfp[address] [place], [place] [address]Dr. Garima Pulliam PT Coag (PPP) [Time] 12.2 s Critically high 9.0-11.6 [facility] Comment on above: Performed By: #### P T, PTT ####[facility] Htufoelzgq97[address] [place], [place] [address]Dr. Garima Pulliam PTTon 09-29-2022 aPTT Coag (Bld) [Time] 29.3 s Normal 22.3-36.2 [facility] Comment on above: Performed By: #### P T, PTT ####[facility] Mfsbbcdsju[address] [place], [place] [address]Dr. Garima Pulliam XR CHEST 1 Von 09-29-2022 XR CHEST 1 V Normal [facility] CBC AUTO DIFFon 09-26-2022 BASO # 0.0 103/ul Normal 0.0-0.1 [facility] Comment on above: Performed By: #### C BC ####[facility] Jnxfpgikzb[address] [place], [place] [address]Dr. Garima Pulliam Basophils/100 WBC (Bld) 0.2 % Normal 0.2-2.0 [facility] Comment on above: Performed By: #### C BC ####[facility] Wvxwubiqeg954[address] [place], [place] [address]Dr. Garima Pulliam EO # 0.1 103/ul Normal 0.0-0.7 [facility] Comment on above: Performed By: #### C BC ####[facility] V[address]kfypjud[address] [place], [place] [address]Dr. Garima Pulliam Eosinophils/100 WBC (Bld) 1.0 % Normal 0.9-7.0 [facility] Comment on above: Performed By: #### C BC ####[facility] Ohxyayrzpe59[address] [place], [place] [address]Dr. Garima Pulliam Erythrocyte distribution width (RBC) [Ratio] 13.4 % Normal 11.0-15.0 [facility] Comment on above: Performed By: #### C BC ####[facility] Maujzqsuwy5[address] [place], [place] [address]Dr. Garima Pulliam Hematocrit (Bld) [Volume fraction] 46.3 % Normal 42.0-54.0 [facility] Comment on above: Performed By: #### C BC ####[facility] Axvgemyceo[address] [place], [place] [address]Dr. Garima Pulliam Hemoglobin (Bld) [Mass/Vol] 15.3 g/dL Normal 14.0-18.0 [facility] Comment on above: Performed By: #### C BC ####[facility] Pxzxdcvqkg555[address] [place], [place] [address]Dr. Garima Pulliam IG # 0.05 10e3/ul Critically high 0.00-0.03 [facility] Comment on above: Performed By: #### C BC ####[facility] Iwetcgoyac412[address] [place], [place] [address]Dr. Garima Pulliam IG % 0.4 % Normal 0.0-0.5 [facility] Comment on above: Performed By: #### C BC ####[facility] Cmshozumgt37[address] [place], [place] [address]Dr. Garima Pulliam LYMPH # 1.7 103/ul Normal 1.2-3.8 [facility] Comment on above: Performed By: #### C BC ####[facility] Hxvqajfsta04[address] [place], [place] [address]Dr. Garima Pulliam Lymphocytes/100 WBC (Bld) 12.7 % Critically low 20.5-60.0 [facility] Comment on above: Performed By: #### C BC ####[facility] O[address]ixzmvitp[address] [place] [address]DrAdalberto Pulliam MANUAL DIFF REQ NO Normal [facility] Comment on above: Performed By: #### C BC ####[facility] Xflvbxuoas8[address] [place] [address]Dr. Garima Pulliam MCH (RBC) [Entitic mass] 30.1 pg Normal 25.9-34.0 [facility] Comment on above: Performed By: #### C BC ####[facility] Regfllsdqt101[address] [place], [place] [address]Dr. Garima Pulliam MCHC (RBC) [Mass/Vol] 33.0 g/dL Normal 29.9-35.2 [facility] Comment on above: Performed By: #### C BC ####[facility] Grnopfklbr[address] [place], [place] [address]DrAdalberto Pulliam MCV (RBC) [Entitic vol] 91.1 fL Normal 80.0-94.0 [facility] Comment on above: Performed By: #### C BC ####[facility] Sojtbjbmix10[address] [place], [place] [address]DrAdalberto Pulliam MONO # 0.9 103/ul Critically high 0.3-0.8 [facility] Comment on above: Performed By: #### C BC ####[facility] Ykebribhcp242[address] [place], [place] [address]DrAdalberto Pulliam Monocytes/100 WBC (Bld) 7.0 % Normal 1.7-12.0 [facility] Comment on above: Performed By: #### C BC ####[facility] Awzljnwmgt318[address] [place], [place] [address]DrAdalberto Pulliam NEUT # 10.4 103/ul Critically high 1.4-6.5 [facility] Comment on above: Performed By: #### C BC ####[facility] Dzoukjyppe684[address] [place], [place] [address]DrAdalberto Pulliam Neutrophils/100 WBC (Bld) 78.7 % Critically high 43.0-75.0 [facility] Comment on above: Performed By: #### C BC ####[facility] Xgxlxsgezw8[address] [place] [address]Dr. Garima Pulliam Platelet mean volume (Bld) [Entitic vol] 8.9 fL Critically low 9.5-13.5 [facility] Comment on above: Performed By: #### C BC ####[facility] Yhzweksoyd50[address] [place] [address]Dr. Garima Pulliam PLT 195 103/ul Normal 150-450 [facility] Comment on above: Performed By: #### C BC ####[facility] Aqroxfrrsc97[address] [place], [place] [address]Dr. Garima Pulliam RBC 5.08 106/ul Normal 4.70-6.10 [facility] Comment on above: Performed By: #### C BC ####[facility] Nnuajdduyq184[address] [place], [place] [address]Dr. Garima Pulliam WBC 13.2 103/ul Critically high 4.0-11.0 [facility] Comment on above: Performed By: #### C BC ####[facility] Uwgdjjgxii89[address] [place], [place] [address]Dr. Garima Pulliam PROF 14(COMP METB)on 022 Albumin [Mass/Vol] 3.5 g/dL Normal 3.4-5.0 [facility] Comment on above: Performed By: #### C DAVID HSTROPN ####[facility] Nyfzmqvpdg7335 [place] [address]Dr. Garima Pulliam Albumin/Globulin [Mass ratio] 1.2 {ratio} Normal [facility] Comment on above: Performed By: #### C RAFAT HERNANDEZTROPN ####[facility] Yvnkezxmkp06[address] [place] [address]Dr. Garima Pulliam ALP [Catalytic activity/Vol] 71 U/L Normal 46-116 [facility] Comment on above: Performed By: #### C DAVID HSTROPN ####[facility] Papxfsajfi[address] [place] [address]Dr. Garima Pulliam ALT [Catalytic activity/Vol] 37 U/L Normal 16-63 [facility] Comment on above: Performed By: #### C DAVID, HSTROPN ####[facility] Gexzjjqbpc216[address] [place] [address]Dr. Garima Pulliam Anion gap [Moles/Vol] 4.8 mmol/L Normal [facility] Comment on above: Performed By: #### C DAVID, HSTROPN ####[facility] Gywxhvhioy[address] [place], [place] [address]Dr. Garima Pulliam AST [Catalytic activity/Vol] 21 U/L Normal 15-37 [facility] Comment on above: Performed By: #### C DAVID, HSTROPN ####[facility] Cbverwwioe042[address] [place], [place] [address]Dr. Garima Pulliam Bilirubin [Mass/Vol] 0.3 mg/dL Normal 0.2-1.0 [facility] Comment on above: Performed By: #### C DAVID, HSTROPN ####[facility] Ownseifwmu25[address] [place] [address]Dr. Garima Pulliam Calcium [Mass/Vol] 8.9 mg/dL Normal 8.5-10.1 [facility] Comment on above: Performed By: #### C DAVID, HSTROPN ####[facility] [address]aksdlejxi[address] [place] [address]Dr. Garima Pulliam Chloride [Moles/Vol] 106 mmol/L Normal 98-107 [facility] Comment on above: Performed By: #### C DAVID, HSTROPN ####[facility] Kkijyyuxnp9784 [place] [address]Dr. Garima Pulliam CO2 [Moles/Vol] 29.8 mmol/L Normal 21.0-32.0 [facility] Comment on above: Performed By: #### C DAVID, HSTROPN ####[facility] Irswpmqhxx65[address] [place] [address]Dr. Garima Pulliam Creatinine [Mass/Vol] 0.68 mg/dL Critically low 0.70-1.30 [facility] Comment on above: Performed By: #### C MP, HSTROPN ####[facility] Bhtpjasvhw23[address] [place] [address]Dr. Garima Pulliam EGFR-AF LEBANESE >60 Normal >=60 [facility] Comment on above: Performed By: #### C MP, HSTROPN ####[facility] Hiqjsyizlj24[address] [place] [address]Dr. Chapislan Pulliam EGFR-NON AF LEBANESE >60 Normal >=60 [facility] Comment on above: Performed By: #### C MP, HSTROPN ####[facility] Uzihootfgv6265 [place] [address]Dr. Garima Pulliam Globulin (S) [Mass/Vol] 2.8 g/dL Normal [facility] Comment on above: Performed By: #### C MP, HSTROPN ####[facility] Vwaqejwxys40[address] [place] [address]Dr. Garima Pulliam Glucose [Mass/Vol] 133 mg/dL Critically high 74-106 [facility] Comment on above: Performed By: #### C MP, HSTROPN ####[facility] Vsbqalxfew6716 [place] [address]Dr. Chapisrenu Pulliam Potassium [Moles/Vol] 3.6 mmol/L Normal 3.5-5.1 [facility] Comment on above: Performed By: #### C MP, HSTROPN ####[facility] Mlcbwqrbpm3931 [place] [address]Dr. Chapisrenu Pulliam Protein [Mass/Vol] 6.3 g/dL Critically low 6.4-8.2 [facility] Comment on above: Performed By: #### C MP, HSTROPN ####[facility] Wqncvrwvjx[address] [place], [place] [address]Dr. Chapisrenu Pulliam Sodium [Moles/Vol] 137 mmol/L Normal 136-145 [facility] Comment on above: Performed By: #### C MP, HSTROPN ####[facility] Jfrbycbhkk[address] [place], [place] [address]Dr. Garima Pulliam Urea nitrogen [Mass/Vol] 15.0 mg/dL Normal 7.0-18.0 [facility] Comment on above: Performed By: #### C DAVID HSTROPN ####[facility] Lwnzvheuqt4[address] [place] [address]Dr. Chapisrenu Pulliam Urea nitrogen/Creatinine [Mass ratio] 22.1 mg/mg Normal [facility] Comment on above: Performed By: #### C DAVID HSTROPN ####[facility] Dsstnhpotm2[address] [place] [address]Dr. Garima Heraclio TROPONIN, HIGH SENSITIVITYon 09-26-2022 HSTROP 12.8 pg/mL Normal 4.0-76.1 [facility] Comment on above: Result Comment: CUT- OFF POINTS HAVE BEEN ESTABLISHED BASED ON THE FOURTH UNIVERSAL DEFINITIONS OF MYOCARDIALINFARCTION. THE UPPER REFERENCE LIMIT (URL) OF TROPONIN, DEFINED THE 99TH PERCENTILE OFcTnI DISTRIBUTION IN A REFERENCE POPULATION, HAS BEEN CONFIRMED THE DECISION THRESHOLDFOR [place] DIAGNOSIS. Performed By: #### C DAVID HSTROPN ####[facility] [address]cl[address]ius[address] [place] [address]Dr. Chapisrenu Pulliam XR CHEST 1 Von 09-26-2022 XR CHEST 1 V Normal [facility] XR CHEST 1 Von 09-16-2022 XR CHEST 1 V Normal [facility] CBC AUTO DIFFon 09-15-2022 BASO # 0.0 103/ul Normal 0.0-0.1 [facility] Comment on above: Performed By: #### C BC ####[facility] Ofjqemaoqq[address] [place] [address]Dr. Garima Heraclio Basophils/100 WBC (Bld) 0.1 % Critically low 0.2-2.0 [facility] Comment on above: Performed By: #### C BC ####[facility] Urwhpfrryz[address] [place] [address]Dr. Garima Pulliam EO # 0.0 103/ul Normal 0.0-0.7 [facility] Comment on above: Performed By: #### C BC ####[facility] Clyhqttiwq4[address] [place] [address]Dr. Garima Pulliam Eosinophils/100 WBC (Bld) 0.1 % Critically low 0.9-7.0 [facility] Comment on above: Performed By: #### C BC ####[facility] Csylxobcsi[address] [place] [address]Dr. Garima Pulliam Erythrocyte distribution width (RBC) [Ratio] 14.1 % Normal 11.0-15.0 [facility] Comment on above: Performed By: #### C BC ####[facility] Gaselkqpyo[address] [place], [place] [address]Dr. Garima Pulliam Hematocrit (Bld) [Volume fraction] 46.1 % Normal 42.0-54.0 [facility] Comment on above: Performed By: #### C BC ####[facility] Zkogqzsdxe[address] [place], [place] [address]Dr. Garima Pulliam Hemoglobin (Bld) [Mass/Vol] 15.0 g/dL Normal 14.0-18.0 [facility] Comment on above: Performed By: #### C BC ####[facility] Npffpbsnle[address] [place], [place] [address]Dr. Garima Pulliam IG # 0.03 10e3/ul Normal 0.00-0.03 [facility] Comment on above: Performed By: #### C BC ####[facility] Xxhigagbmo[address] [place], [place] [address]Dr. Garima Pulliam IG % 0.3 % Normal 0.0-0.5 [facility] Comment on above: Performed By: #### C BC ####[facility] Cqqkjqoqbz[address] [place], [place] [address]Dr. Garima Pulliam LYMPH # 0.6 103/ul Critically low 1.2-3.8 [facility] Comment on above: Performed By: #### C BC ####[facility] Akjvhtjufn[address] [place], [place] [address]Dr. Garima Pulliam Lymphocytes/100 WBC (Bld) 5.8 % Critically low 20.5-60.0 [facility] Comment on above: Performed By: #### C BC ####[facility] Axzzilzghl98[address] [place] [phone]. Garima Pulliam MANUAL DIFF REQ NO Normal [facility] Comment on above: Performed By: #### C BC ####[facility] Glfrqbahxl6204 [place] [phone]. Garima Pulliam MCH (RBC) [Entitic mass] 30.2 pg Normal 25.9-34.0 [facility] Comment on above: Performed By: #### C BC ####[facility] Advtvtyjjp33[address] [place] [address]Dr. Garima Pulliam MCHC (RBC) [Mass/Vol] 32.5 g/dL Normal 29.9-35.2 [facility] Comment on above: Performed By: #### C BC ####[facility] Pzjmqcnmug[address] [place] [address]Dr. Garima Pulliam MCV (RBC) [Entitic vol] 92.8 fL Normal 80.0-94.0 [facility] Comment on above: Performed By: #### C BC ####[facility] Vvqjingmzu97[address] [place] [address]Dr. Garima Heraclio MONO # 0.3 103/ul Normal 0.3-0.8 [facility] Comment on above: Performed By: #### C BC ####[facility] Qdfdykzlvv5271 [place] [phone]. Garima Heraclio Monocytes/100 WBC (Bld) 3.2 % Normal 1.7-12.0 [facility] Comment on above: Performed By: #### C BC ####[facility] Biypvutzmz7[address] [place] [phone]. Garima Pulliam NEUT # 9.8 103/ul Critically high 1.4-6.5 [facility] Comment on above: Performed By: #### C BC ####[facility] Ohfbojexyd2140 [place] [phone]. Garima Pulliam Neutrophils/100 WBC (Bld) 90.5 % Critically high 43.0-75.0 [facility] Comment on above: Performed By: #### C BC ####[facility] Gfbhozhuyd8764 [place] [phone]. Garima Pulliam Platelet mean volume (Bld) [Entitic vol] 9.4 fL Critically low 9.5-13.5 [facility] Comment on above: Performed By: #### C BC ####[facility] Eyfjcucbqo3463 [place] [phone]. Garima Pulliam PLT 208 103/ul Normal 150-450 [facility] Comment on above: Performed By: #### C BC ####[facility] Dpeirksjxn74[address] [place] [address]Dr. Garima Pulliam RBC 4.97 106/ul Normal 4.70-6.10 [facility] Comment on above: Performed By: #### C BC ####[facility] Qixbaiubgz2[address] [place] [address]Dr. Garima Pulliam WBC 10.8 103/ul Normal 4.0-11.0 [facility] Comment on above: Performed By: #### C BC ####[facility] Jjjtvqswkt4[address] [place] [address]Dr. Garima Pulliam PROF 14(COMP METB)on 022 Albumin [Mass/Vol] 4.0 g/dL Normal 3.4-5.0 [facility] Comment on above: Performed By: #### C MP ####[facility] Pjbkzhmyru40[address] [place] [address]Dr. Garima Pulliam Albumin/Globulin [Mass ratio] 1.5 {ratio} Normal [facility] Comment on above: Performed By: #### C MP ####[facility] Guwwdilkqd[address] [place] [address]Dr. Garima Pulliam ALP [Catalytic activity/Vol] 73 U/L Normal 46-116 [facility] Comment on above: Performed By: #### C MP ####[facility] Zxfyuqkegw4106 [place] [address]Dr. Garima Pulliam ALT [Catalytic activity/Vol] 42 U/L Normal 16-63 [facility] Comment on above: Performed By: #### C MP ####[facility] Dpaknjwdrn69[address] [place] [address]Dr. Garima Pulliam Anion gap [Moles/Vol] 9.1 mmol/L Normal [facility] Comment on above: Performed By: #### C MP ####[facility] Lgtozkpzox[address] [place], [place] [address]Dr. Garima Pulliam AST [Catalytic activity/Vol] 28 U/L Normal 15-37 [facility] Comment on above: Performed By: #### C MP ####[facility] Gmbezmhisu[address] [place], [place] [address]Dr. Garima Pulliam Bilirubin [Mass/Vol] 0.6 mg/dL Normal 0.2-1.0 [facility] Comment on above: Performed By: #### C MP ####[facility] Ineowkhiuu564[address] [place], [place] [address]Dr. Garima Pulliam Calcium [Mass/Vol] 8.6 mg/dL Normal 8.5-10.1 [facility] Comment on above: Performed By: #### C MP ####[facility] Mpnrxrzryz9[address] [place], [place] [address]Dr. Garima Pulliam Chloride [Moles/Vol] 105 mmol/L Normal 98-107 [facility] Comment on above: Performed By: #### C MP ####[facility] Hxudtxokve004[address] [place], [place] [address]Dr. Garima Pulliam CO2 [Moles/Vol] 28.5 mmol/L Normal 21.0-32.0 [facility] Comment on above: Performed By: #### C MP ####[facility] Ouztzapcyv627[address] [place], [place] [address]Dr. Garima Heraclio Creatinine [Mass/Vol] 0.78 mg/dL Normal 0.70-1.30 [facility] Comment on above: Performed By: #### C MP ####[facility] Sysbbmruiz027[address] [place], [place] [address]Dr. Chapisrenu Heraclio EGFR-AF LEBANESE >60 Normal >=60 [facility] Comment on above: Performed By: #### C MP ####[facility] Qrsadfecfo565[address] [place], [place] [address]Dr. Garima Pulliam EGFR-NON AF LEBANESE >60 Normal >=60 [facility] Comment on above: Performed By: #### C MP ####[facility] Sgvulitffv55[address] [place] [address]Dr. Garima Pulliam Globulin (S) [Mass/Vol] 2.7 g/dL Normal [facility] Comment on above: Performed By: #### C MP ####[facility] Yadyoctvff85[address] [place] [address]Dr. Garima Pulliam Glucose [Mass/Vol] 220 mg/dL Critically high 74-106 [facility] Comment on above: Performed By: #### C MP ####[facility] Kfzyukjuhn1660 [place] [address]Dr. Garima Pulliam Potassium [Moles/Vol] 3.6 mmol/L Normal 3.5-5.1 [facility] Comment on above: Performed By: #### C MP ####[facility] Cygecoybwm694[address] [place], [place] [address]Dr. Garima Pulliam Protein [Mass/Vol] 6.7 g/dL Normal 6.4-8.2 [facility] Comment on above: Performed By: #### C MP ####[facility] Wjzeqdfjjx387[address] [place], [place] [address]Dr. Garima Pulliam Sodium [Moles/Vol] 139 mmol/L Normal 136-145 [facility] Comment on above: Performed By: #### C MP ####[facility] Bixueolyzu832[address] [place], [place] [address]Dr. Garima Pulliam Urea nitrogen [Mass/Vol] 11.0 mg/dL Normal 7.0-18.0 [facility] Comment on above: Performed By: #### C MP ####[facility] Iaivkkbdxz[address] [place], [place] [address]Dr. Garima Pulliam Urea nitrogen/Creatinine [Mass ratio] 14.1 mg/mg Normal [facility] Comment on above: Performed By: #### C MP ####[facility] Jygvgzlrpd24[address] [place], [place] [address]Dr. Garima Pulliam CARDIAC NASH 3-6on 2 CK [Catalytic activity/Vol] 240 U/L Normal 39-308 [facility] Comment on above: Performed By: #### C MREP ####[facility] Qpzjzvazdi8[address] [place] [address]Dr. Garima Pulliam CK.MB [Mass/Vol] 10.38 ng/mL Critically high <=3.60 [facility] Comment on above: Performed By: #### C MREP ####[facility] Ptdewwurjw7078 [place] [address]Dr. Garima Pulliam HSTROP 18.5 pg/mL Normal 4.0-76.1 [facility] Comment on above: Result Comment: CUT- OFF POINTS HAVE BEEN ESTABLISHED BASED ON THE FOURTH UNIVERSAL DEFINITIONS OF MYOCARDIALINFARCTION. THE UPPER REFERENCE LIMIT (URL) OF TROPONIN, DEFINED THE 99TH PERCENTILE OFcTnI DISTRIBUTION IN A REFERENCE POPULATION, HAS BEEN CONFIRMED THE DECISION THRESHOLDFOR [place] DIAGNOS[place]. Performed By: #### C MREP ####[facility] Avtvuorccx13[address] [place] [address]Dr. Garima Pulliam CK [Catalytic activity/Vol] 257 U/L Normal 39-308 [facility] Comment on above: Performed By: #### C MREP ####[facility] Yywotkltwq[address] [place], [place] [address]Dr. Garima Pulliam CK.MB [Mass/Vol] 9.89 ng/mL Critically high <=3.60 [facility] Comment on above: Performed By: #### C MREP ####[facility] Scefniybyn[address] [place], [place] [address]Dr. Garima Pulliam HSTROP 16.9 pg/mL Normal 4.0-76.1 [facility] Comment on above: Result Comment: CUT- OFF POINTS HAVE BEEN ESTABLISHED BASED ON THE FOURTH UNIVERSAL DEFINITIONS OF MYOCARDIALINFARCTION. THE UPPER REFERENCE LIMIT (URL) OF TROPONIN, DEFINED THE 99TH PERCENTILE OFcTnI DISTRIBUTION IN A REFERENCE POPULATION, HAS BEEN CONFIRMED THE DECISION THRESHOLDFOR [place]. Performed By: #### C MREP ####[facility] Hnvcuamozh66[address] [place] [address]Dr. Garima Heraclio CBC AUTO DIFFon 10-22-2022 BASO # 0.0 103/ul Normal 0.0-0.1 [facility] Comment on above: Performed By: #### C BC ####[facility] Xhwnucvdab0508 [place] [phone]. Garima Pulliam Basophils/100 WBC (Bld) 0.1 % Critically low 0.2-2.0 [facility] Comment on above: Performed By: #### C BC ####[facility] Vzlpmdwqer0041 [place] [address]Dr. Garima Pulliam EO # 0.0 103/ul Normal 0.0-0.7 [facility] Comment on above: Performed By: #### C BC ####[facility] Hojizigmiy94[address] [place], [place] [address]Dr. Chapisrenu Heraclio Eosinophils/100 WBC (Bld) 0.0 % Critically low 0.9-7.0 [facility] Comment on above: Performed By: #### C BC ####[facility] Rxpbvrfxfe8[address] [place], [place] [address]Dr. Garima Pulliam Erythrocyte distribution width (RBC) [Ratio] 13.6 % Normal 11.0-15.0 [facility] Comment on above: Performed By: #### C BC ####[facility] Ovginuvurb208[address] [place], [place] [address]Dr. Garima Pulliam Hematocrit (Bld) [Volume fraction] 48.2 % Normal 42.0-54.0 [facility] Comment on above: Performed By: #### C BC ####[facility] Jldqkpsqtv1955[address] [place], [place] [address]Dr. Garima Pulliam Hemoglobin (Bld) [Mass/Vol] 16.0 g/dL Normal 14.0-18.0 [facility] Comment on above: Performed By: #### C BC ####[facility] Rqzkwlomah[address] [place], [place] [address]Dr. Chapisrenu Heraclio IG # 0.02 10e3/ul Normal 0.00-0.03 [facility] Comment on above: Performed By: #### C BC ####[facility] Cnbkulzyuz7995 [place] [phone]. Garima Pulliam IG % 0.3 % Normal 0.0-0.5 [facility] Comment on above: Performed By: #### C BC ####[facility] Npqqopgdpr0[address] [place] [address]Dr. Garima Heraclio LYMPH # 0.5 103/ul Critically low 1.2-3.8 [facility] Comment on above: Performed By: #### C BC ####[facility] Uspcnktzea3604 [place] [address]Dr. Garima Heraclio Lymphocytes/100 WBC (Bld) 7.7 % Critically low 20.5-60.0 [facility] Comment on above: Performed By: #### C BC ####[facility] Wusvqejnqy[address] [place], [place] [address]Dr. Chapisrenu Pulliam MANUAL DIFF REQ NO Normal [facility] Comment on above: Performed By: #### C BC ####[facility] Hoginsqwpz070[address] [place], [place] [address]Dr. Garima Heraclio MCH (RBC) [Entitic mass] 30.6 pg Normal 25.9-34.0 [facility] Comment on above: Performed By: #### C BC ####[facility] Ebyjgataei[address] [place], [place] [address]Dr. Garima Pulliam MCHC (RBC) [Mass/Vol] 33.2 g/dL Normal 29.9-35.2 [facility] Comment on above: Performed By: #### C BC ####[facility] Guikovoitr[address] [place], [place] [address]Dr. Garima Heraclio MCV (RBC) [Entitic vol] 92.2 fL Normal 80.0-94.0 [facility] Comment on above: Performed By: #### C BC ####[facility] Htcojdqbyy[address] [place], [place] [address]Dr. Garima Pulliam MONO # 0.0 103/ul Critically low 0.3-0.8 [facility] Comment on above: Performed By: #### C BC ####[facility] Rwhaebwvnd5344 [place] [phone]. Garima Pulliam Monocytes/100 WBC (Bld) 0.4 % Critically low 1.7-12.0 [facility] Comment on above: Performed By: #### C BC ####[facility] Wbhydnuxfa5694 [place] [phone]. Garima Pulliam NEUT # 6.2 103/ul Normal 1.4-6.5 [facility] Comment on above: Performed By: #### C BC ####[facility] Xzexleucfs37[address] [place] [address]Dr. Garima Pulliam Neutrophils/100 WBC (Bld) 91.5 % Critically high 43.0-75.0 [facility] Comment on above: Performed By: #### C BC ####[facility] Ejjknougjv3[address] [place] [address]Dr. Garima Pulliam Platelet mean volume (Bld) [Entitic vol] 8.7 fL Critically low 9.5-13.5 [facility] Comment on above: Performed By: #### C BC ####[facility] Gjsuccymge2[address] [place] [address]Dr. Garima Pulliam PLT 179 103/ul Normal 150-450 [facility] Comment on above: Performed By: #### C BC ####[facility] Wibgishkcc1895 [place] [phone]. Garima Pulliam RBC 5.23 106/ul Normal 4.70-6.10 [facility] Comment on above: Performed By: #### C BC ####[facility] Tvmdowiaar7406 [place] [address]Dr. Garima Pulliam WBC 6.7 103/ul Normal 4.0-11.0 [facility] Comment on above: Performed By: #### C BC ####[facility] Uqnvuhygnm25[address] [place] [address]Dr. Garima Pulliam PROF CHEM 8 (BAS METB)on Anion gap [Moles/Vol] 12.1 mmol/L Normal [facility] Comment on above: Performed By: #### B MP ####[facility] Hiukmnzzmb9362 [place] [phone]. Garima Pulliam Calcium [Mass/Vol] 8.7 mg/dL Normal 8.5-10.1 [facility] Comment on above: Performed By: #### B MP ####[facility] Ognajykrcb3322 [place] [phone]. Garima Pulliam Chloride [Moles/Vol] 105 mmol/L Normal 98-107 [facility] Comment on above: Performed By: #### B MP ####[facility] Jjyhxfchbs8929 [place] [phone]. Garima Pulliam CO2 [Moles/Vol] 25.5 mmol/L Normal 21.0-32.0 [facility] Comment on above: Performed By: #### B MP ####[facility] Bztmxzgpri9558 [place] [address]Dr. Garima Pulliam Creatinine [Mass/Vol] 0.63 mg/dL Critically low 0.70-1.30 [facility] Comment on above: Performed By: #### B MP ####[facility] Uugdctmlks84[address] [place] [address]Dr. Garima Pulliam EGFR-AF LEBANESE >60 Normal >=60 [facility] Comment on above: Performed By: #### B MP ####[facility] Arkiowwoog[address] [place] [address]Dr. Garima Pulliam EGFR-NON AF LEBANESE >60 Normal >=60 [facility] Comment on above: Performed By: #### B MP ####[facility] Ofnazgntcs93[address] [place] [address]Dr. Garima Pulliam Glucose [Mass/Vol] 162 mg/dL Critically high 74-106 [facility] Comment on above: Performed By: #### B MP ####[facility] Czmvlmusvb[address] [place], [place] [address]Dr. Garima Pulliam Potassium [Moles/Vol] 3.6 mmol/L Normal 3.5-5.1 [facility] Comment on above: Performed By: #### B MP ####[facility] Nufqaiebau66[address] [place], [place] [address]Dr. Garima Pulliam Sodium [Moles/Vol] 139 mmol/L Normal 136-145 [facility] Comment on above: Performed By: #### B DAVID ####[facility] Xnnwqvjntl44[address] [place] [address]Dr. Garima Pulliam Urea nitrogen [Mass/Vol] 9.0 mg/dL Normal 7.0-18.0 [facility] Comment on above: Performed By: #### B DAVID ####[facility] Shivfccrap77[address] [place] [address]Dr. Garima Pulliam Urea nitrogen/Creatinine [Mass ratio] 14.3 mg/mg Normal [facility] Comment on above: Performed By: #### B DAVID ####[facility] Oskfnsnull67[address] [place] [address]Dr. Chapisrenu Pulliam CARDIAC NASH ADMITon 09-12- 022 CK [Catalytic activity/Vol] 304 U/L Normal 39-308 [facility] Comment on above: Performed By: #### B NANCY HERNANDEZ ####[facility] Vaqqqnsaxw87[address] [place] [address]Dr. Garima Pulliam CK.MB [Mass/Vol] 11.81 ng/mL Critically high <=3.60 [facility] Comment on above: Performed By: #### B NANCY HERNANDEZ ####[facility] Ltjucffckz15[address] [place] [address]Dr. Garima Heraclio HSTROP 13.3 pg/mL Normal 4.0-76.1 [facility] Comment on above: Result Comment: CUT- OFF POINTS HAVE BEEN ESTABLISHED BASED ON THE FOURTH UNIVERSAL DEFINITIONS OF MYOCARDIALINFARCTION. THE UPPER REFERENCE LIMIT (URL) OF TROPONIN, DEFINED THE 99TH PERCENTILE OFcTnI DISTRIBUTION IN A REFERENCE POPULATION, HAS BEEN CONFIRMED THE DECISION THRESHOLDFOR [place] DIAGNOS[place]. Performed By: #### B NANCY HERNANDEZ ####[facility] Hyzgeffijv14[address] [place] [address]Dr. Garima Pulliam DORIS 133 ng/mL Critically high 16-96 [facility] Comment on above: Performed By: #### B NANCY HERNANDEZ ####[facility] Onolkpjduu8538 [place] [address]Dr. Garima Pulliam CBC AUTO DIFFon 09-12-2022 BASO # 0.0 103/ul Normal 0.0-0.1 [facility] Comment on above: Performed By: #### C BC ####[facility] H[address]qjtwaatv[address] [place], [place] [id number]. Garima Heraclio Basophils/100 WBC (Bld) 0.2 % Normal 0.2-2.0 [facility] Comment on above: Performed By: #### C BC ####[facility] Rxlabxsatj624[address] [place], [place] [address]Dr. Garima Heraclio EO # 0.2 103/ul Normal 0.0-0.7 [facility] Comment on above: Performed By: #### C BC ####[facility] Mhqczkcibp334[address] [place], [place] [address]Dr. Chapisrenu Pulliam Eosinophils/100 WBC (Bld) 1.3 % Normal 0.9-7.0 [facility] Comment on above: Performed By: #### C BC ####[facility] Ojtdjmmbqa346[address] [place], [place] [address]Dr. Garima Pulliam Erythrocyte distribution width (RBC) [Ratio] 13.7 % Normal 11.0-15.0 [facility] Comment on above: Performed By: #### C BC ####[facility] Wpmyidbaef85[address] [place], [place] [address]Dr. Garima Pulliam Hematocrit (Bld) [Volume fraction] 46.4 % Normal 42.0-54.0 [facility] Comment on above: Performed By: #### C BC ####[facility] Ncxuakivrg9[address] [place], [place] [address]Dr. Garima Pulliam Hemoglobin (Bld) [Mass/Vol] 15.7 g/dL Normal 14.0-18.0 [facility] Comment on above: Performed By: #### C BC ####[facility] Qmyzfnavvn[address] [place], [place] [address]Dr. Garima Pulliam IG # 0.04 10e3/ul Critically high 0.00-0.03 [facility] Comment on above: Performed By: #### C BC ####[facility] Qtxzcsapyr6919 [place] [phone]. Garima Pulliam IG % 0.3 % Normal 0.0-0.5 [facility] Comment on above: Performed By: #### C BC ####[facility] Hpzkntjtrn6003 [place] [phone]. Garima Pulliam LYMPH # 1.7 103/ul Normal 1.2-3.8 [facility] Comment on above: Performed By: #### C BC ####[facility] Wdhuwifzxd1137 [place] [phone]. Garima Pulliam Lymphocytes/100 WBC (Bld) 11.5 % Critically low 20.5-60.0 [facility] Comment on above: Performed By: #### C BC ####[facility] Tmnsnqwivg4793 [place] [phone]. Garima Pulliam MANUAL DIFF REQ NO Normal [facility] Comment on above: Performed By: #### C BC ####[facility] Xadxdcuodr4578 [place] [phone]. Garima Pulliam MCH (RBC) [Entitic mass] 31.0 pg Normal 25.9-34.0 [facility] Comment on above: Performed By: #### C BC ####[facility] Zuwerzzpxi0150 [place] [phone]. Garima Pulliam MCHC (RBC) [Mass/Vol] 33.8 g/dL Normal 29.9-35.2 [facility] Comment on above: Performed By: #### C BC ####[facility] Lwceshstdb9914 [place] [phone]. Garima Pulliam MCV (RBC) [Entitic vol] 91.7 fL Normal 80.0-94.0 [facility] Comment on above: Performed By: #### C BC ####[facility] Zctxmdsvda4983 [place] [phone]. Garima Heraclio MONO # 0.8 103/ul Normal 0.3-0.8 [facility] Comment on above: Performed By: #### C BC ####[facility] Spjqmuixqh2507 [place] [phone]. Garima Pulliam Monocytes/100 WBC (Bld) 5.2 % Normal 1.7-12.0 [facility] Comment on above: Performed By: #### C BC ####[facility] Yuefjyibme4864 [place] [phone]. Garima Pulliam NEUT # 11.7 103/ul Critically high 1.4-6.5 [facility] Comment on above: Performed By: #### C BC ####[facility] Ybntlvbald7213 [place] [phone]. Garima Pulliam Neutrophils/100 WBC (Bld) 81.5 % Critically high 43.0-75.0 [facility] Comment on above: Performed By: #### C BC ####[facility] Pemcinxjzy[address] [place] [address]Dr. Garima Pulliam Platelet mean volume (Bld) [Entitic vol] 8.6 fL Critically low 9.5-13.5 [facility] Comment on above: Performed By: #### C BC ####[facility] Bzcnqgizup8703 [place] [phone]. Garima Pulliam PLT 191 103/ul Normal 150-450 [facility] Comment on above: Performed By: #### C BC ####[facility] Ptz[address]awbmh[address] [place], [place] [address]Dr. Garima Pulliam RBC 5.06 106/ul Normal 4.70-6.10 [facility] Comment on above: Performed By: #### C BC ####[facility] H[address]zhntjhhx[address] [place], [place] [address]Dr. Garima Pulliam WBC 14.4 103/ul Critically high 4.0-11.0 [facility] Comment on above: Performed By: #### C BC ####[facility] Kfhtqrrwcb[address] [place], [place] [address]Dr. Garima Pulliam [facility]24 SARS-CoV-2 (COVID-19) RNA MARIE+probe Ql (Unsp spec) Not detected Normal NOT DETECTED [facility] Comment on above: Result Comment: When [...] for this test is supported by the Control Panel Tester of Health and Human Service's declaration that [...] be used). Performed By: #### C VDTBH ####[facility] [address] [place], [place] [address]Dr. Garima Pulliam LACTATE/LACTIC ACIDon 2021 Lactate [Moles/Vol] 1.0 mmol/L Normal 0.4-1.9 [facility] Comment on above: Performed By: #### L ACT ####[facility] [address] [place], [place] [address]Dr. Garima Pulliam PROF CHEM 8 (BAS METB)on Anion gap [Moles/Vol] 11.6 mmol/L Normal [facility] Comment on above: Performed By: #### B NANCY HERNANDEZ ####[facility] [address] [place] [address]Dr. Garima Pulliam Calcium [Mass/Vol] 9.2 mg/dL Normal 8.5-10.1 [facility] Comment on above: Performed By: #### B NANCY HERNANDEZ ####[facility] [address] [place] [address]Dr. Garima Pulliam Chloride [Moles/Vol] 105 mmol/L Normal 98-107 [facility] Comment on above: Performed By: #### B MP, CMADM ####[facility] [address] [place] [id number]. Garima Pulliam CO2 [Moles/Vol] 25.9 mmol/L Normal 21.0-32.0 [facility] Comment on above: Performed By: #### B DAVID, CMADM ####[facility] [address] [place] [address]Dr. Garima Pulliam Creatinine [Mass/Vol] 0.72 mg/dL Normal 0.70-1.30 [facility] Comment on above: Performed By: #### B DAVID, CMADM ####[facility] [address] [place] [id number]. Garima Pulliam EGFR-AF LEBANESE >60 Normal >=60 [facility] Comment on above: Performed By: #### B DAVID, CMADM ####[facility] [address] [place] [address]Dr. Chapisrenu Pulliam EGFR-NON AF LEBANESE >60 Normal >=60 [facility] Comment on above: Performed By: #### B DAVID, CMAANA ROSA ####[facility] [address] [place] [address]Dr. Garima Pulliam Glucose [Mass/Vol] 111 mg/dL Critically high 74-106 [facility] Comment on above: Performed By: #### B DAVID, CMADM ####[facility] [address] [place] [address]Dr. Chapisrenu Pulliam Potassium [Moles/Vol] 3.5 mmol/L Normal 3.5-5.1 [facility] Comment on above: Performed By: #### B DAVID, CMADM ####[facility] [address] [place] [address]Dr. Chapisrenu Pulliam Sodium [Moles/Vol] 139 mmol/L Normal 136-145 [facility] Comment on above: Performed By: #### B DAVID, CMADM ####[facility] [address] [place] [address]Dr. Garima Pulliam Urea nitrogen [Mass/Vol] 7.0 mg/dL Normal 7.0-18.0 [facility] Comment on above: Performed By: #### B DAVID, CMADM ####[facility] [address] [place], [place] [address]Wm. Garima Pulliam Urea nitrogen/Creatinine [Mass ratio] 9.7 mg/mg Normal [facility] Comment on above: Performed By: #### B MP, CMADM ####[facility] [address] [place], [place] [address]Yi. Garima Pulliam XR CHEST 1 Von 09-12-2022 XR CHEST 1 V Normal [facility] Encounters Encounter Date Encounter Type Care Provider [...] Facility:[facility]1 Payers Date Payer Category Payer Unknown [id number] 1960 Medicaid [id number] 1960 Unknown [id number] 1959 Unknown [id number] 1954 Unknown [id number] 2.16.84 0.1.431633.3.579.2.593 1954 Unknown [id number] 2.16.84 0.1.769706.3.579.2.593 1954 Unknown [id number] 2.16.84 0.1.780912.3.579.2.593 1954 Unknown [id number] 2.16.84 0.1.195816.3.579.2.593 1954 Unknown [id number] 2.16.84 0.1.684201.3.579.2.593 1954 Unknown [id number] 2.16.84 0.1.572818.3.579.2.593 1954 Unknown [id number] 2.16.84 0.1.914059.3.579.2.593 1954 Unknown [id number] 2.16.84 0.1.847120.3.579.2.593 1954 Unknown [id number] 2.16.84 0.1.226314.3.579.2.593 1954 Unknown [id number] 2.16.84 0.1.494039.3.579.2.593 1954 Unknown [id number] 2.16.84 0.1.854877.3.579.2.593 1954 Unknown [id number] 2.16.84 0.1.980376.3.579.2.593 1954 Unknown [id number] 2.16.84 0.1.662730.3.579.2.593 1954 Unknown [id number] 2.16.84 0.1.398935.3.579.2.593 1954 Unknown [id number] 2.16.84 0.1.351854.3.579.2.593 1954 Unknown [id number] 2.16.84 0.1.263636.3.579.2.593 1954 Unknown [id number] 2.16.84 0.1.791823.3.579.2.593 1954 Unknown [id number] 2.16.84 0.1.452255.3.579.2.593 1954 Unknown [id number] 2.16.84 0.1.121272.3.579.2.593 1954 Unknown [id number] 2.16.84 0.1.346322.3.579.2.593 Summary Purpose Family History No Family History Records Found Advance Directives No Advanced Directives Records Found Additional Source Comments (unrecognized sect ion and content) No Status Records Found INFORMATION SOURCE (unrecogn ized section and content) DATE CREATED AUTHOR 04/08/2023 [facility] FOR RECORDS PERTAINING TO PATIENTS WHO [...] BE BASED ON THE PRIMARY CLINICAL RECORDS. [facility] [employer] [facility]. provides no warranty or guarantee of the accuracy or completeness of information in this document.
[2024-09-04] MEDS: IPRATROPIUM/ALBUTEROL SULFATE 3 ML AMPUL.NEB IH (15:59)
[2024-09-04 16:01] VITALS: PULSE 72; O2SAT 94
--- NOTE | 2024-09-04 16:12 | ED_ITS ---
HPI HPI - General Adult General Chief complaint: Shortness of Breath/Dyspnea Stated complaint: SOB Time Seen by Provider: 09/04/24 15:44 Source: patient Mode of arrival: Wheelchair Limitations: no limitations History of Present Illness HPI narrative: 69-year-old male well-known to the emergency room presents chief complaint of wanting a breathing treatment. He states he is currently out of money and out of his prescription refills for albuterol inhaler and Nebules. He shows no signs of distress. He states he gets paid on Thursday of this week. Patient is well-known does not appear hypoxic. Related Data Home Medications ?Medication ?Instructions ?Recorded ?Confirmed albuterol sulfate 90 mcg/actuation 2 inh inhalation Q6H PRN shortness 03/13/24 08/25/24 aerosol inhaler of breath or wheezing Previous Rx's ?Medication ?Instructions ?Recorded losartan 100 mg tablet 100 mg PO DAILY #30 tabs 12/27/23 albuterol sulfate 2.5 mg/3 mL 2.5 mg (3 mL) inhalation Q6H PRN 05/26/24 (0.083 %) solution for nebulization shortness of breath or wheezing #90 mL loratadine 10 mg tablet (Claritin) 10 mg PO DAILY #20 tabs 05/30/24 albuterol sulfate 2.5 mg/3 mL 2.5 mg (3 mL) inhalation Q6H PRN 08/07/24 (0.083 %) solution for nebulization shortness of breath or wheezing #90 mL albuterol sulfate 90 mcg/actuation 2 inh inhalation Q4H PRN shortness 08/07/24 aerosol inhaler of breath or wheezing #8.5 grams albuterol sulfate 2.5 mg/3 mL 1.25 mg (1.5 mL) inhalation Q6H 09/04/24 (0.083 %) solution for nebulization PRN bronchospasm #75 mL albuterol sulfate 90 mcg/actuation 2 inh inhalation Q6H PRN shortness 09/04/24 aerosol inhaler of breath or wheezing #6.7 grams Allergies Allergy/AdvReac Type Severity Reaction Status Date / Time No Known Drug Allergies Allergy Verified 08/25/24 22:49 Opioid HPI Opioid Management Most Recent Opioid Data: Last ORT Total Score 0 01/29/24 06:36 01/29/24 Last ORT Risk Category Low Risk 01/29/24 06:36 01/29/24 Review of Systems ROS Narrative All Systems are negative except as noted/marked.All systems reviewed and otherwise negative PFSH PFSH Medical History (Updated 09/04/24 @ 16:08 by Arabella Wills) Hypokalemia ?E87.6 - Hypokalemia (ICD-10) New onset type 2 diabetes mellitus ?E11.9 - Type 2 diabetes mellitus without complications (ICD-10) Lower extremity edema ?R60.0 - Localized edema (ICD-10) Edema ?R60.9 - Edema, unspecified (ICD-10) Acute hyperglycemia ?R73.9 - Hyperglycemia, unspecified (ICD-10) Tobacco abuse ?Z72.0 - Tobacco use (ICD-10) HTN (hypertension) ?I10 - Essential (primary) hypertension (ICD-10) Community acquired pneumonia ?J18.9 - Pneumonia, unspecified organism (ICD-10) Chronic obstructive pulmonary disease ?J44.9 - Chronic obstructive pulmonary disease, unspecified (ICD-10) Acute exacerbation of chronic obstructive pulmonary disease (COPD) ?J44.1 - Chronic obstructive pulmonary disease with (acute) exacerbation (IC D-10) RLL pneumonia ?J18.9 - Pneumonia, unspecified organism (ICD-10) COPD (chronic obstructive pulmonary disease) ?J44.9 - Chronic obstructive pulmonary disease, unspecified (ICD-10) Surgical History (Updated 01/29/24 @ 06:45 by Latonia Martin, SERENITY) Hx of tonsillectomy ?Z90.89 - Acquired absence of other organs (ICD-10) Family History (Updated 12/25/23 @ 21:28 by Kym Ordaz) Mother Family history of cancer Family history of hypertension Father Family history of cancer Social History Within the past year, how often did you have a drink containing alcohol: 4 or more times a week Within the past year, how many standard drinks containing alcohol did you have on a typical day: 3 or 4 Within the past year, how often did you have six or more drinks on one occasion: less than monthly Total score: 3 Score interpretation: A score of 4 or more indicates drinking is likely to affect patient's safety. Smoking status: Current every day smoker Non-prescribed substance use: cannabis (any form) Previous occupational history: retired Highest level of school completed/degree received: high school graduate Are you now , , , , never or living with a partner: In a typical week, how many times do you talk on the telephone with family, friends, or neighbors: twice per week How often do you get together with friends or relatives: once per week How often do you attend spiritism or latter-day services: never Do you belong to any clubs or organizations such as spiritism groups unions, fraternal or athletic groups, or school groups: no Total score: 1 Score interpretation: A score of less than or equal to 1 indicates the most socially isolated. Little interest or pleasure in doing things: not at all Feeling down, depressed, or hopeless: not at all Feel stressed/tense/nervous/anxious/difficulty sleeping: not at all Do you think of yourself as: straight/heterosexual Gender Identity: male Exam Narrative Exam Narrative: All Systems are negative except as noted/marked.All systems reviewed and otherwise negative Nurses note and vital signs reviewed and patient is not hypoxic. General: The patient appears well and in no apparent distress. Patient is resting comfortably on cart. Skin: Warm, dry, no pallor noted. There is no rash noted. Head: Normocephalic, atraumatic Eye: Normal conjunctiva, no drainage, EOMI. PERRL Ears, Nose, Mouth, and Throat: oral mucosa is moist. Nares patent. Mouth without vesicles. Ear canals patent. Tm's without Erythema Cardiovascular: Regular Rate and Rhythm Respiratory: Patient is in no distress, no accessory muscle use, lungs are clear to auscultation, no wheezing, rales or rhonchi Back: non-tender, no CVA tenderness bilaterally to percussion. GI: Normal bowel sounds, no tenderness to palpation, no masses appreciated. No rebound, guarding, or rigidity noted. Musculoskeletal: The patient has no evidence of calf tenderness, no pitting edema, symmetrical pulses noted bilaterally Neurological: A&O x4, normal speech Psychiatric: Cooperative Constitutional Vital Signs, click to edit/add: Last Vital Signs Temp 97.7 F 09/04/24 15:38 Pulse 72 09/04/24 16:01 Resp 18 09/04/24 15:38 BP 173/103 H 09/04/24 15:38 Pulse Ox 94 L 09/04/24 16:01 O2 Del Method Room Air 09/04/24 16:01 Course Vital Signs Vital signs: Vital Signs Temperature 97.7 F 09/04/24 15:38 Pulse Rate 76 09/04/24 15:38 Respiratory Rate 18 09/04/24 15:38 Blood Pressure 173/103 H 09/04/24 15:38 Pulse Oximetry 94 L 09/04/24 15:38 Oxygen Delivery Method Room Air 09/04/24 15:38 Temperature 97.7 F 09/04/24 15:38 Pulse Rate 72 09/04/24 16:01 Respiratory Rate 18 09/04/24 15:38 Blood Pressure 173/103 H 09/04/24 15:38 Pulse Oximetry 94 L 09/04/24 16:01 Oxygen Delivery Method Room Air 09/04/24 16:01 Medical Decision Making MDM Narrative Medical decision making narrative: Chief complaint of needing a breathing treatment. He shows no signs of distre ss. He is a smoker. He is not hypoxic. Medicated with DuoNeb breathing treatment. Patient be given her prescription refill for albuterol nebulizer and Nebules. He states he does not get paid till Thursday. Patient encouraged to cut back smoking. Patient laughs and states that that will not happen. Patient is otherwise stable able to be discharged home. Discharge Plan Discharge Chief Complaint: Shortness of Breath/Dyspnea Clinical Impression: COPD (chronic obstructive pulmonary disease), Medication refill Patient Disposition: Home, Self-Care Time of Disposition Decision: 16:08 Condition: Good Prescriptions / Home Meds: New albuterol sulfate 2.5 mg /3 mL (0.083 %) solution for nebulization 1.25 mg inhalation Q6H PRN (Reason: bronchospasm) Qty: 75 0RF albuterol sulfate 90 mcg/actuation HFA aerosol inhaler 2 inh inhalation Q6H PRN (Reason: shortness of breath or wheezing) Qty: 6.7 0RF No Action losartan 100 mg tablet 100 mg PO DAILY Qty: 30 11RF albuterol sulfate 90 mcg/actuation HFA aerosol inhaler 2 inh inhalation Q6H PRN (Reason: shortness of breath or wheezing) albuterol sulfate 2.5 mg /3 mL (0.083 %) solution for nebulization 2.5 mg inhalation Q6H PRN (Reason: shortness of breath or wheezing) Qty: 90 0RF albuterol sulfate 2.5 mg /3 mL (0.083 %) solution for nebulization 2.5 mg inhalation Q6H PRN (Reason: shortness of breath or wheezing) Qty: 90 0RF albuterol sulfate 90 mcg/actuation HFA aerosol inhaler 2 inh inhalation Q4H PRN (Reason: shortness of breath or wheezing) Qty: 8.5 0RF loratadine [Claritin] 10 mg tablet 10 mg PO DAILY Qty: 20 0RF Print Language: Tanzanian Instructions: COPD (Chronic Obstructive Pulmonary Disease) (ED) Referrals: SERG DUENAS [Primary Care Provider] - 1 week
== END 2024-09-04 16:26 | disposition home or self-care (01) ==
PROVIDERS: Emergency Provider Emergency Medicine
DX: J44.9 Chronic obstructive pulmonary disease, unspecified (principal); Z76.0 Encounter for issue of repeat prescription; F17.200 Nicotine dependence, unspecified, uncomplicated
CPT/HCPCS: 94640; 99284

== ENCOUNTER 2024-09-12 22:48 | Emergency (ER) | payer MEDICARE, SELFPAY ==
--- OUTSIDE RECORDS SUMMARY | 2024-09-12 22:56 | XMS_ITS | CCD ---
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 Garima Pulliam Basophils/100 WBC (Bld) 0.3 % Normal 0.2-2.0 [facility] Comment on above: Performed By: #### C BC ####[facility] Mshqhcfizy91[address] [place] [address]DrAdalberto Pulliam EO # 0.3 103/ul Normal 0.0-0.7 [facility] Comment on above: Performed By: #### C BC ####[facility] [address]mbtejal[address] [place], [place] [address]Dr. Garima Pulliam Eosinophils/100 WBC (Bld) 2.8 % Normal 0.9-7.0 [facility] Comment on above: Performed By: #### C BC ####[facility] Ahtelygvlm7344 [place] [address]Dr. Gairma Pulliam Erythrocyte distribution width (RBC) [Ratio] 13.4 % Normal 11.0-15.0 [facility] Comment on above: Performed By: #### C BC ####[facility] Lsnmhiqrrg0[address] [place] [address]Dr. Garima Pulliam Hematocrit (Bld) [Volume fraction] 45.7 % Normal 42.0-54.0 [facility] Comment on above: Performed By: #### C BC ####[facility] Rzvfcxfwlv4639 [place] [address]Dr. Garima Pulliam Hemoglobin (Bld) [Mass/Vol] 15.2 g/dL Normal 14.0-18.0 [facility] Comment on above: Performed By: #### C BC ####[facility] Glasdlrcff9[address] [place] [address]Dr. Garima Pulliam IG # 0.02 10e3/ul Normal 0.00-0.03 [facility] Comment on above: Performed By: #### C BC ####[facility] Htghptdfvo0634 [place] [address]Dr. Garima Pulliam IG % 0.2 % Normal 0.0-0.5 [facility] Comment on above: Performed By: #### C BC ####[facility] Gbqnnipset5439 [place] [address]Dr. Garima Pulliam LYMPH # 2.1 103/ul Normal 1.2-3.8 [facility] Comment on above: Performed By: #### C BC ####[facility] Nrmloxeolh0552 [place] [address]Dr. Garima Pulliam Lymphocytes/100 WBC (Bld) 23.7 % Normal 20.5-60.0 [facility] Comment on above: Performed By: #### C BC ####[facility] Gqhsstapzh1732 [place] [address]Dr. Garima Heraclio MANUAL DIFF REQ NO Normal [facility] Comment on above: Performed By: #### C BC ####[facility] Idnanvnicy5737 [place] [address]Dr. Garima Pulliam MCH (RBC) [Entitic mass] 30.4 pg Normal 25.9-34.0 [facility] Comment on above: Performed By: #### C BC ####[facility] Mugcwljbap9328 [place] [address]Dr. Garima Heraclio MCHC (RBC) [Mass/Vol] 33.3 g/dL Normal 29.9-35.2 [facility] Comment on above: Performed By: #### C BC ####[facility] [address]xl[address]cusx[address] [place], [place] [address]Dr. Chapisrenu Pulliam MCV (RBC) [Entitic vol] 91.4 fL Normal 80.0-94.0 [facility] Comment on above: Performed By: #### C BC ####[facility] Extceflfev[address] [place], [place] [address]Dr. Garima Heraclio MONO # 0.7 103/ul Normal 0.3-0.8 [facility] Comment on above: Performed By: #### C BC ####[facility] Eadknurgzf[address] [place], [place] [address]Dr. Chapisrenu Pulliam Monocytes/100 WBC (Bld) 8.3 % Normal 1.7-12.0 [facility] Comment on above: Performed By: #### C BC ####[facility] Gfbqzlbyur9443 [place] [address]Dr. Chapisrenu Heraclio NEUT # 5.8 103/ul Normal 1.4-6.5 [facility] Comment on above: Performed By: #### C BC ####[facility] Ukwmwxbhbh[address] [place], [place] [address]Dr. Garima Pulliam Neutrophils/100 WBC (Bld) 64.7 % Normal 43.0-75.0 [facility] Comment on above: Performed By: #### C BC ####[facility] Gpbiqaeqku7805 [place] [address]Dr. Garima Pulliam Platelet mean volume (Bld) [Entitic vol] 8.6 fL Critically low 9.5-13.5 [facility] Comment on above: Performed By: #### C BC ####[facility] Eluahuycks9042 [place] [address]Dr. Garima Pulliam PLT 230 103/ul Normal 150-450 [facility] Comment on above: Performed By: #### C BC ####[facility] Reozgmrsuo9761 [place] [address]Dr. Chapisrenu Heraclio RBC 5.00 106/ul Normal 4.70-6.10 [facility] Comment on above: Performed By: #### C BC ####[facility] Cadcktpfgx0049 [place] [address]Dr. Garima Heraclio WBC 9.0 103/ul Normal 4.0-11.0 [facility] Comment on above: Performed By: #### C BC ####[facility] Mlvttlmegd0348 [place] [address]Dr. Garima Pulliam MAGNESIUMon 04-04-2023 Magnesium [Mass/Vol] 1.8 mg/dL Normal 1.8-2.4 [facility] Comment on above: Performed By: #### M G ####[facility] Tuezgnpjsg8278 [place] [address]Dr. Chapisrenu Pulliam PROF 14(COMP METB)on 023 Albumin [Mass/Vol] 3.8 g/dL Normal 3.4-5.0 [facility] Comment on above: Performed By: #### C MP ####[facility] Yvcnglnvzp0743 [place] [address]Dr. Garima Pulliam Albumin/Globulin [Mass ratio] 1.2 {ratio} Normal [facility] Comment on above: Performed By: #### C MP ####[facility] Qxwcwobjgg6572 [place] [address]Dr. Garima Heraclio ALP [Catalytic activity/Vol] 84 U/L Normal 46-116 [facility] Comment on above: Performed By: #### C MP ####[facility] Yjmwodkhpt4734 [place] [id number]. Garima Pulliam ALT [Catalytic activity/Vol] 31 U/L Normal 16-63 [facility] Comment on above: Performed By: #### C MP ####[facility] Ykmngrhkte7495 [place] [address]Dr. Garima Pulliam Anion gap [Moles/Vol] 12.2 mmol/L Normal [facility] Comment on above: Performed By: #### C MP ####[facility] Atjousioge4602 [place] [address]Dr. Garima Pulliam AST [Catalytic activity/Vol] 23 U/L Normal 15-37 [facility] Comment on above: Performed By: #### C MP ####[facility] Eesderzdbj[address] [place], [place] [address]Dr. Garima Pulliam Bilirubin [Mass/Vol] 0.5 mg/dL Normal 0.2-1.0 [facility] Comment on above: Performed By: #### C MP ####[facility] Pmuizsrsbf[address] [place], [place] [address]Dr. Garima Pulliam Calcium [Mass/Vol] 9.2 mg/dL Normal 8.5-10.1 [facility] Comment on above: Performed By: #### C MP ####[facility] Spikfwvfgu3[address] [place], [place] [address]Dr. Garima Pulliam Chloride [Moles/Vol] 103 mmol/L Normal 98-107 [facility] Comment on above: Performed By: #### C MP ####[facility] Hemzetubre6241 [place] [address]Dr. Garima Pulliam CO2 [Moles/Vol] 28.5 mmol/L Normal 21.0-32.0 [facility] Comment on above: Performed By: #### C MP ####[facility] Cugtutdgyu[address] [place], [place] [address]Dr. Garima Pulliam Creatinine [Mass/Vol] 0.74 mg/dL Normal 0.70-1.30 [facility] Comment on above: Performed By: #### C MP ####[facility] Blepdsuhmt8741 [place] [id number]. Garima Pulliam EGFR-AF GERMAN >60 Normal >=60 [facility] Comment on above: Performed By: #### C MP ####[facility] Vpbxcqcynu0623 [place] [address]Dr. Garima Heraclio EGFR-NON AF GERMAN >60 Normal >=60 [facility] Comment on above: Performed By: #### C MP ####[facility] Liqxbeqzje6487 [place] [id number]. Garima Heraclio Globulin (S) [Mass/Vol] 3.1 g/dL Normal [facility] Comment on above: Performed By: #### C MP ####[facility] Qotjbogsst[address] [place], [place] [address]Dr. Garima Heraclio Glucose [Mass/Vol] 93 mg/dL Normal 74-106 [facility] Comment on above: Performed By: #### C MP ####[facility] Iwhfuudocz[address] [place], [place] [address]Dr. Garima Heraclio Potassium [Moles/Vol] 3.7 mmol/L Normal 3.5-5.1 [facility] Comment on above: Performed By: #### C MP ####[facility] Kkucspfnug9[address] [place], [place] [address]Dr. Garima Heraclio Protein [Mass/Vol] 6.9 g/dL Normal 6.4-8.2 [facility] Comment on above: Performed By: #### C MP ####[facility] Mvdcluivxj[address] [place], [place] [address]Dr. Garima Heraclio Sodium [Moles/Vol] 140 mmol/L Normal 136-145 [facility] Comment on above: Performed By: #### C MP ####[facility] Esfaxlgerf[address] [place], [place] [address]Dr. Garima Pulliam Urea nitrogen [Mass/Vol] 8.0 mg/dL Normal 7.0-18.0 [facility] Comment on above: Performed By: #### C MP ####[facility] Wnscqruxjv[address] [place], [place] [address]Dr. Garima Pulliam Urea nitrogen/Creatinine [Mass ratio] 10.8 mg/mg Normal [facility] Comment on above: Performed By: #### C DAVID ####[facility] Sgcqluzwmp3923 [place] [address]Dr. Garima Pulliam AMMONIAon 03-30-2023 Ammonia (P) [Moles/Vol] 11 umol/L Normal 11-32 [facility] Comment on above: Performed By: #### A MM ####[facility] Duqfpnybwo[address] [place], [place] [address]Dr. Garima Pulliam CARDIAC NASH ADMITon 023 CK [Catalytic activity/Vol] 232 U/L Normal 39-308 [facility] Comment on above: Performed By: #### C NANCY HERNANDEZ ####[facility] Kivylositm3843 [place] [address]Dr. Chapisrenu Pulliam CK.MB [Mass/Vol] 4.83 ng/mL Critically high <=3.60 [facility] Comment on above: Performed By: #### C NANCY HERNANDEZ ####[facility] Kwuhnazsjn[address] [place], [place] [address]Dr. Garima Pulliam HSTROP 10.5 pg/mL Normal 4.0-76.1 [facility] Comment on above: Result Comment: CUT- OFF POINTS HAVE BEEN ESTABLISHED BASED ON THE FOURTH UNIVERSAL DEFINITIONS OF MYOCARDIALINFARCTION. THE UPPER REFERENCE LIMIT (URL) OF TROPONIN, DEFINED THE 99TH PERCENTILE OFcTnI DISTRIBUTION IN A REFERENCE POPULATION, HAS BEEN CONFIRMED THE DECISION THRESHOLDFOR OR DIAGNOSIS. Performed By: #### C NANCY HERNANDEZ ####[facility] Xmxzkmwagb[address] [place], [place] [address]Dr. Garima Heraclio DORIS 79 ng/mL Normal 16-96 [facility] Comment on above: Performed By: #### C NANCY HERNANDEZ ####[facility] Czosxqpchu19[address] [place], [place] [address]Dr. Garima Heraclio CBC AUTO DIFFon 03-30-2023 BASO # 0.0 103/ul Normal 0.0-0.1 [facility] Comment on above: Performed By: #### C BC ####[facility] Oxdlybwegv8433 [place] [id number]. Garima Pulliam Basophils/100 WBC (Bld) 0.1 % Critically low 0.2-2.0 [facility] Comment on above: Performed By: #### C BC ####[facility] Riudzfwkib3015 [place] [id number]. Garima Pulliam EO # 0.3 103/ul Normal 0.0-0.7 [facility] Comment on above: Performed By: #### C BC ####[facility] Lqybmdemnm[address] [place], [place] [address]Dr. Garima Pulliam Eosinophils/100 WBC (Bld) 3.3 % Normal 0.9-7.0 [facility] Comment on above: Performed By: #### C BC ####[facility] Idppgikdhj7[address] [place], [place] [address]Dr. Garima Pulliam Erythrocyte distribution width (RBC) [Ratio] 13.5 % Normal 11.0-15.0 [facility] Comment on above: Performed By: #### C BC ####[facility] Wdfeqnqtnz[address] [place], [place] [address]Dr. Garima Pulliam Hematocrit (Bld) [Volume fraction] 42.9 % Normal 42.0-54.0 [facility] Comment on above: Performed By: #### C BC ####[facility] Dpbuwbxveu[address] [place], [place] [address]Dr. Garima Pulliam Hemoglobin (Bld) [Mass/Vol] 13.9 g/dL Critically low 14.0-18.0 [facility] Comment on above: Performed By: #### C BC ####[facility] Jpsavlbczw6494 [place] [id number]. Garima Pulliam IG # 0.01 10e3/ul Normal 0.00-0.03 [facility] Comment on above: Performed By: #### C BC ####[facility] Mtewybcjfn[address] [place], [place] [address]Dr. Garima Pulliam IG % 0.1 % Normal 0.0-0.5 [facility] Comment on above: Performed By: #### C BC ####[facility] Ipuotcefuu[address] [place] [id number]. Garima Pulliam LYMPH # 1.7 103/ul Normal 1.2-3.8 [facility] Comment on above: Performed By: #### C BC ####[facility] Vyquxllfjr3[address] [place], [place] [address]Wy. Garima Pulliam Lymphocytes/100 WBC (Bld) 22.8 % Normal 20.5-60.0 [facility] Comment on above: Performed By: #### C BC ####[facility] Hevnreinjf9923 [place] [id number]. Garima Heraclio MANUAL DIFF REQ NO Normal [facility] Comment on above: Performed By: #### C BC ####[facility] Yebmntgbgr2846 [place] [id number]. Garima Heraclio MCH (RBC) [Entitic mass] 30.5 pg Normal 25.9-34.0 [facility] Comment on above: Performed By: #### C BC ####[facility] Alrwtlieqw6897 [place] [id number]. Garima Pulliam MCHC (RBC) [Mass/Vol] 32.4 g/dL Normal 29.9-35.2 [facility] Comment on above: Performed By: #### C BC ####[facility] Zzjthgylvi6452 [place] [id number]. Garima Heraclio MCV (RBC) [Entitic vol] 94.1 fL Critically high 80.0-94.0 [facility] Comment on above: Performed By: #### C BC ####[facility] Ihgrbormjh8600 [place] [id number]. Garima Heraclio MONO # 0.7 103/ul Normal 0.3-0.8 [facility] Comment on above: Performed By: #### C BC ####[facility] Wktwasgywo2292 [place] [id number]. Garima Heraclio Monocytes/100 WBC (Bld) 8.6 % Normal 1.7-12.0 [facility] Comment on above: Performed By: #### C BC ####[facility] Nxoucichhw5271 [place] [id number]. Garima Pulliam NEUT # 4.9 103/ul Normal 1.4-6.5 [facility] Comment on above: Performed By: #### C BC ####[facility] Tsjonskkgn7095 [place] [id number]. Garima Pulliam Neutrophils/100 WBC (Bld) 65.1 % Normal 43.0-75.0 [facility] Comment on above: Performed By: #### C BC ####[facility] Eeguzxnnow0441 [place] [id number]. Garima Pulliam Platelet mean volume (Bld) [Entitic vol] 8.5 fL Critically low 9.5-13.5 [facility] Comment on above: Performed By: #### C BC ####[facility] Zzicrjguqb4543 [place] [id number]. Graima Pulliam PLT 219 103/ul Normal 150-450 [facility] Comment on above: Performed By: #### C BC ####[facility] Terlyeeggs9270 [place] [id number]. Garima Pulliam RBC 4.56 106/ul Critically low 4.70-6.[address] [facility] Comment on above: Performed By: #### C BC ####[facility] Vqijvldhxq9093 [place] [id number]. Garima Pulliam WBC 7.6 103/ul Normal 4.0-11.0 [facility] Comment on above: Performed By: #### C BC ####[facility] Vzatjlkged8240 [place] [id number]. Garima Pulliam LACTATE/LACTIC ACIDon 2022 Lactate [Moles/Vol] 1.2 mmol/L Normal 0.4-2.0 [facility] Comment on above: Performed By: #### L ACT ####[facility] Nvltebxuxa7865 [place] [id number]. Garima Pulliam MAGNESIUMon 03-30-2023 Magnesium [Mass/Vol] 1.8 mg/dL Normal 1.8-2.4 [facility] Comment on above: Performed By: #### M G ####[facility] Hnyccdviwg1968 [place] [address]Dr. Garima Pulliam PROF 14(COMP METB)on 023 Albumin [Mass/Vol] 3.5 g/dL Normal 3.4-5.0 [facility] Comment on above: Performed By: #### C DAVID, CMAANA ROSA ####[facility] Xfdrbssflz0313 [place] [address]Dr. Garima Pulliam Albumin/Globulin [Mass ratio] 1.2 {ratio} Normal [facility] Comment on above: Performed By: #### C DAVID, CMAANA ROSA ####[facility] Icalnocizd3489 [place] [address]Dr. Garima Pulliam ALP [Catalytic activity/Vol] 85 U/L Normal 46-116 [facility] Comment on above: Performed By: #### C DAVID, CMAANA ROSA ####[facility] [address]bys[address]wyfp[address] [place], [place] [address]Dr. Garima Pulliam ALT [Catalytic activity/Vol] 29 U/L Normal 16-63 [facility] Comment on above: Performed By: #### C DAVID, CMAANA ROSA ####[facility] Emojrkucxf8752 [place] [address]Dr. Garima Pulliam Anion gap [Moles/Vol] 8.0 mmol/L Normal [facility] Comment on above: Performed By: #### C DAVID, CMAANA ROSA ####[facility] Kvvynxoeoq6380 [place] [address]Dr. Garima Pulliam AST [Catalytic activity/Vol] 18 U/L Normal 15-37 [facility] Comment on above: Performed By: #### C DAVID, CMADM ####[facility] Bfxxtokjit0997 [place] [address]Dr. Garima Pulliam Bilirubin [Mass/Vol] 0.4 mg/dL Normal 0.2-1.0 [facility] Comment on above: Performed By: #### C DAVID, CMADM ####[facility] Umbisgbztw6196 [place] [address]Dr. Garima Pulliam Calcium [Mass/Vol] 8.8 mg/dL Normal 8.5-10.1 [facility] Comment on above: Performed By: #### C DAVID, NANCY ####[facility] Rrdsrmisrv1517 [place] [address]Dr. Chapisrenu Pulliam Chloride [Moles/Vol] 108 mmol/L Critically high 98-107 [facility] Comment on above: Performed By: #### C DAVID, NANCY ####[facility] Ydchwcquxh1620 [place] [address]Dr. Garima Pulliam CO2 [Moles/Vol] 29.6 mmol/L Normal 21.0-32.[address] [facility] Comment on above: Performed By: #### C NANCY HERNANDEZ ####[facility] Hxaxqfioxw[address] [place], [place] [address]Dr. Garima Pulliam Creatinine [Mass/Vol] 0.77 mg/dL Normal 0.70-1.30 [facility] Comment on above: Performed By: #### C NANCY HERNANDEZ ####[facility] [address]wpeowgvl[address] [place], [place] [address]Dr. Garima Heraclio EGFR-AF GERMAN >60 Normal >=[address] [facility] Comment on above: Performed By: #### C NANCY HERNANDEZ ####[facility] Zhtawzycqe[address] [place], [place] [address]Dr. Garima Heraclio EGFR-NON AF GERMAN >60 Normal >=60 [facility] Comment on above: Performed By: #### C NANCY HERNANDEZ ####[facility] Mszhxqsttz0875 [place] [address]Dr. Garima Pulliam Globulin (S) [Mass/Vol] 2.8 g/dL Normal [facility] Comment on above: Performed By: #### C NANCY HERNANDEZ ####[facility] Csvycvhuuv1378 [place] [address]Dr. Garima Pulliam Glucose [Mass/Vol] 207 mg/dL Critically high 74-106 [facility] Comment on above: Performed By: #### C NANCY HERNANDEZ ####[facility] Nggcxqoktr[address] [place], [place] [address]Dr. Garima Pulliam Potassium [Moles/Vol] 4.6 mmol/L Normal 3.5-5.1 [facility] Comment on above: Performed By: #### C DAVID, NANCY ####[facility] Rmduixvkzw7957 [place] [address]Dr. Garima Pulliam Protein [Mass/Vol] 6.3 g/dL Critically low 6.4-8.2 [facility] Comment on above: Performed By: #### C DAVID, NANCY ####[facility] Rtvetqasfv7815 [place] [address]Dr. Garima Pulliam Sodium [Moles/Vol] 141 mmol/L Normal 136-145 [facility] Comment on above: Performed By: #### C DAVID, NANCY ####[facility] Aakgaqiwtf3526 [place] [address]Dr. Garima Pulliam Urea nitrogen [Mass/Vol] 9.0 mg/dL Normal 7.0-18.0 [facility] Comment on above: Performed By: #### C DAVID, NANCY ####[facility] Etlvvnqeil8108 [place] [address]Dr. Garima Pulliam Urea nitrogen/Creatinine [Mass ratio] 11.7 mg/mg Normal [facility] Comment on above: Performed By: #### C DAVID, NANCY ####[facility] Hgtvjzyjjk5156 [place] [address]Dr. Garima Pulliam XR CHEST 1 Von 03-30-2023 XR CHEST 1 V Normal [facility] BNPon 03-27-2023 Natriuretic peptide B (Bld) [Mass/Vol] 251.0 pg/mL Normal <=900.0 [facility] Comment on above: Performed By: #### C MP, BNP, LIPID ####[facility] Pcfoxgrsef6940 [place] [address]Dr. Garima Pulliam GLYCOHEMOGLOBIN A1Con 2022 ADA RECOMMENDATION SEE BELOW Normal [facility] Comment on above: Result Comment: ADA RECOMMENDED LIMIT 4.0 - 6.0 ADA THERAPEUTIC TARGET < 7.0 ACTION SUGGESTED > 7.0 Performed By: #### A 1C ####[facility] Gapxdumcal0788 [place] [address]Dr. Garima Pulliam Glucose [Mass/Vol] 180 mg/dL Normal [facility] Comment on above: Performed By: #### A 1C ####[facility] [address]omphfunyc[address] [place], [place] [address]Dr. Chapisrenu Pulliam HbA1c (Bld) [Mass fraction] 7.9 % Critically high 4.5-6.2 [facility] Comment on above: Performed By: #### A 1C ####[facility] [address]qifxwiyv[address] [place], [place] [address]Dr. Garima Pulliam HEMOGRAM AND PLATELon 2022 Hematocrit (Bld) [Volume fraction] 45.7 % Normal 42.0-54.0 [facility] Comment on above: Performed By: #### H H ####[facility] Mjucftniyc[address] [place], [place] [address]Dr. Garima Pulliam Hemoglobin (Bld) [Mass/Vol] 15.1 g/dL Normal 14.0-18.0 [facility] Comment on above: Performed By: #### H H ####[facility] Herphfgrit[address] [place], [place] [address]Dr. Garima Pulliam MCH (RBC) [Entitic mass] 30.0 pg Normal 25.9-34.0 [facility] Comment on above: Performed By: #### H H ####[facility] [address]cataebn[address] [place], [place] [address]Dr. Garima Pulliam MCHC (RBC) [Mass/Vol] 33.0 g/dL Normal 29.9-35.2 [facility] Comment on above: Performed By: #### H H ####[facility] Xdngdijska[address] [place], [place] [address]Dr. Garima Pulliam MCV (RBC) [Entitic vol] 90.7 fL Normal 80.0-94.0 [facility] Comment on above: Performed By: #### H H ####[facility] Esbilevyld[address] [place], [place] [address]Dr. Garima Pulliam PLT 222 103/ul Normal 150-450 [facility] Comment on above: Performed By: #### H H ####[facility] Oyuntbujdh6608 [place] [id number]. Garima Pulliam RBC 5.04 106/ul Normal 4.70-6.10 [facility] Comment on above: Performed By: #### H H ####[facility] Euewrnviqp6744 [place] [id number]. Garima Pulliam WBC 8.7 103/ul Normal 4.0-11.0 [facility] Comment on above: Performed By: #### H H ####[facility] Vzfibbqkii1428 [place] [id number]. Garima Pulliam LIPID PROFILEon 03-27-2023 CHOL-HDL RATIO NORM SEE BELOW Normal [facility] Comment on above: Result Comment: 3.3 - 4.4 LOW RISK 4.4 - 7.1 AVERAGE RISK 7.1 - 11.0 MODERATE RISK >11.0 HIGH RISK Performed By: #### C MP, BNP, LIPID ####[facility] Cycsjfvtxk2358 [place] [address]Dr. Garima Pulliam Cholesterol [Mass/Vol] 113 mg/dL Normal <=200 [facility] Comment on above: Performed By: #### C MP, BNP, LIPID ####[facility] Xtlsatuyww3720 [place] [address]Dr. Garima Pulliam Cholesterol in HDL [Mass/Vol] 51 mg/dL Normal 40-60 [facility] Comment on above: Performed By: #### C MP, BNP, LIPID ####[facility] Fxcmbtkxkc2474 [place] [address]Dr. Garima Pulliam Cholesterol in LDL [Mass/Vol] 49.8 mg/dL Normal [facility] Comment on above: Performed By: #### C MP, BNP, LIPID ####[facility] Skmrbaqyey8724 [place] [address]Dr. Garima Pulliam Cholesterol.total/Cho lesterol in HDL [Mass ratio] 2.2 {ratio} Normal [facility] Comment on above: Performed By: #### C MP, BNP, LIPID ####[facility] Siculozsrj1284 [place] [address]Dr. Garima Pulliam HDL NORMAL > or = 60 mg/dl - LOW CARDIOVASCULAR RISK <40 mg/dl - HIGH CARDIOVASCULAR RISK Normal [facility] Comment on above: Performed By: #### C MP, BNP, LIPID ####[facility] Enlnyugaqu6623 [place] [address]Dr. Garima Pulliam LDL CALC NORMAL SEE BELOW Normal [facility] Comment on above: Result Comment: <100 mg/dl OPTIMAL 100 - 129 mg/dl NEAR OR ABOVE OPTIMAL 130 - 159 mg/dl BORDERLINE HIGH 160 - 189 mg/dl HIGH >190 mg/dl VERY HIGH Performed By: #### C MP, BNP, LIPID ####[facility] [address]zeftohky[address] [place] [id number]. Garima Pulliam Triglyceride [Mass/Vol] 61 mg/dL Normal <=150 [facility] Comment on above: Performed By: #### C MP, BNP, LIPID ####[facility] [address]rqpfkyk[address] [place] [address]Dr. Garima Pulliam VLDL CALC 12.2 mg/dL Normal [facility] Comment on above: Performed By: #### C MP, BNP, LIPID ####[facility] Miiyjalwtg25[address] [place] [address]Dr. Garima Pulliam PROF 14(COMP METB)on 023 Albumin [Mass/Vol] 3.5 g/dL Normal 3.4-5.0 [facility] Comment on above: Performed By: #### C MP, BNP, LIPID ####[facility] Nvrbashryh[address] [place] [address]Dr. Garima Pulliam Albumin/Globulin [Mass ratio] 1.2 {ratio} Normal [facility] Comment on above: Performed By: #### C MP, BNP, LIPID ####[facility] Srepfdhehe[address] [place] [address]Dr. Garima Pulliam ALP [Catalytic activity/Vol] 82 U/L Normal 46-116 [facility] Comment on above: Performed By: #### C MP, BNP, LIPID ####[facility] Rviykukngq[address] [place] [address]Dr. Garima Pulliam ALT [Catalytic activity/Vol] 33 U/L Normal 16-63 [facility] Comment on above: Performed By: #### C MP, BNP, LIPID ####[facility] Gkjpadawoz[address] [place] [address]Dr. Garima Pulliam Anion gap [Moles/Vol] 9.9 mmol/L Normal [facility] Comment on above: Performed By: #### C MP, BNP, LIPID ####[facility] Hoodyyppzj[address] [place] [address]Dr. Garima Pulliam AST [Catalytic activity/Vol] 24 U/L Normal 15-37 [facility] Comment on above: Performed By: #### C MP, BNP, LIPID ####[facility] Weociklwfz67[address] [place] [address]Dr. Garima Pulliam Bilirubin [Mass/Vol] 0.6 mg/dL Normal 0.2-1.0 [facility] Comment on above: Performed By: #### C MP, BNP, LIPID ####[facility] Iehotqnkxw029[address] [place] [address]Dr. Garima Pulliam Calcium [Mass/Vol] 9.2 mg/dL Normal 8.5-10.1 [facility] Comment on above: Performed By: #### C MP, BNP, LIPID ####[facility] Terjdxnugr45[address] [place] [address]Dr. Garima Pulliam Chloride [Moles/Vol] 106 mmol/L Normal 98-107 [facility] Comment on above: Performed By: #### C MP, BNP, LIPID ####[facility] Hauvvnupbt06[address] [place] [address]Dr. Garima Pulliam CO2 [Moles/Vol] 32.3 mmol/L Critically high 21.0-32.0 [facility] Comment on above: Performed By: #### C MP, BNP, LIPID ####[facility] Gthdgwpmwq[address] [place] [address]Dr. Garima Pulliam Creatinine [Mass/Vol] 0.70 mg/dL Normal 0.70-1.30 [facility] Comment on above: Performed By: #### C MP, BNP, LIPID ####[facility] Inowlvrwss29[address] [place] [id number]. Garima Pulliam EGFR-AF GERMAN >60 Normal >=[address] [facility] Comment on above: Performed By: #### C MP, BNP, LIPID ####[facility] Anflnmimed74[address] [place] [id number]. Garima Pulliam EGFR-NON AF GERMAN >60 Normal >=60 [facility] Comment on above: Performed By: #### C MP, BNP, LIPID ####[facility] Rjagozxtbi2444 [place] [address]Dr. Garima Pulliam Globulin (S) [Mass/Vol] 2.9 g/dL Normal [facility] Comment on above: Performed By: #### C MP, BNP, LIPID ####[facility] Gnxmgtezgw5103 [place] [address]Dr. Garima Pulliam Glucose [Mass/Vol] 111 mg/dL Critically high 74-106 [facility] Comment on above: Performed By: #### C MP, BNP, LIPID ####[facility] Dhidedbmgr9964 [place] [address]Dr. Garima Pulliam Potassium [Moles/Vol] 4.2 mmol/L Normal 3.5-5.1 [facility] Comment on above: Performed By: #### C MP, BNP, LIPID ####[facility] Kqmlccedig7355 [place] [address]Dr. Garima Pulliam Protein [Mass/Vol] 6.4 g/dL Normal 6.4-8.2 [facility] Comment on above: Performed By: #### C MP, BNP, LIPID ####[facility] Lhlxgnwvvg3932 [place] [address]Dr. Garima Pulliam Sodium [Moles/Vol] 144 mmol/L Normal 136-145 [facility] Comment on above: Performed By: #### C MP, BNP, LIPID ####[facility] Zmkrpiyesy7025 [place] [address]Dr. Garima Pulliam Urea nitrogen [Mass/Vol] 7.0 mg/dL Normal 7.0-18.0 [facility] Comment on above: Performed By: #### C MP, BNP, LIPID ####[facility] [address]xt[address]ys[address] [place], [place] [address]Dr. Garima Pulliam Urea nitrogen/Creatinine [Mass ratio] 10.0 mg/mg Normal [facility] Comment on above: Performed By: #### C MP, BNP, LIPID ####[facility] Bnbriwdswq[address] [place], [place] [address]Dr. Garima Pulliam BNPon 03-22-2023 Natriuretic peptide B (Bld) [Mass/Vol] 103.0 pg/mL Normal <=900.0 [facility] Comment on above: Performed By: #### B PEARL STRINGER, BMP ####[facility] Isictrluwi[address] [place], [place] [address]Dr. Garima Pulliam CBC AUTO DIFFon 03-22-2023 BASO # 0.0 103/ul Normal 0.0-0.1 [facility] Comment on above: Performed By: #### C BC ####[facility] Dmmskxqqhv[address] [place], [place] [address]Dr. Graima Heraclio Basophils/100 WBC (Bld) 0.3 % Normal 0.2-2.0 [facility] Comment on above: Performed By: #### C BC ####[facility] Fwgjfczxbs[address] [place], [place] [address]Dr. Garima Pulliam EO # 0.2 103/ul Normal 0.0-0.7 [facility] Comment on above: Performed By: #### C BC ####[facility] Pegveclbwj[address] [place], [place] [address]Dr. Garima Pulliam Eosinophils/100 WBC (Bld) 2.2 % Normal 0.9-7.0 [facility] Comment on above: Performed By: #### C BC ####[facility] Yzeagjdjhi[address] [place], [place] [address]Dr. Garima Pulliam Erythrocyte distribution width (RBC) [Ratio] 13.2 % Normal 11.0-15.0 [facility] Comment on above: Performed By: #### C BC ####[facility] Svsmjoblma2521 [place] [id number]. Garima Pulliam Hematocrit (Bld) [Volume fraction] 43.4 % Normal 42.0-54.0 [facility] Comment on above: Performed By: #### C BC ####[facility] Xrgugqmkay5412 [place] [address]Dr. Garima Heraclio Hemoglobin (Bld) [Mass/Vol] 14.3 g/dL Normal 14.0-18.0 [facility] Comment on above: Performed By: #### C BC ####[facility] Apxtgpdjqc4120 [place] [address]Dr. Garima Pulliam IG # 0.02 10e3/ul Normal 0.00-0.03 [facility] Comment on above: Performed By: #### C BC ####[facility] Kkwehkijmp6127 [place] [address]Dr. Garima Pulliam IG % 0.3 % Normal 0.0-0.5 [facility] Comment on above: Performed By: #### C BC ####[facility] Fslutippqh5[address] [place] [address]Dr. Chapisrenu Pulliam LYMPH # 2.0 103/ul Normal 1.2-3.8 [facility] Comment on above: Performed By: #### C BC ####[facility] Skylevttao3705 [place] [address]Dr. Chapisrenu Pulliam Lymphocytes/100 WBC (Bld) 24.8 % Normal 20.5-60.0 [facility] Comment on above: Performed By: #### C BC ####[facility] Leituulzvv7456 [place] [address]Dr. Chapisrenu Pulliam MANUAL DIFF REQ NO Normal [facility] Comment on above: Performed By: #### C BC ####[facility] Lyyxmslucn8659 [place] [address]Dr. Garima Heraclio MCH (RBC) [Entitic mass] 30.0 pg Normal 25.9-34.0 [facility] Comment on above: Performed By: #### C BC ####[facility] S[address]fwnqkex[address] [place], [place] [address]Dr. Garima Pulliam MCHC (RBC) [Mass/Vol] 32.9 g/dL Normal 29.9-35.2 [facility] Comment on above: Performed By: #### C BC ####[facility] Yjqjueyqdd9384 [place] [id number]. Garima Pulliam MCV (RBC) [Entitic vol] 91.0 fL Normal 80.0-94.0 [facility] Comment on above: Performed By: #### C BC ####[facility] Dkqbacruye6913 [place] [id number]. Garima Heraclio MONO # 0.8 103/ul Normal 0.3-0.8 [facility] Comment on above: Performed By: #### C BC ####[facility] Irlgmpyvsf1263 [place] [address]Dr. Chapisrenu Pulliam Monocytes/100 WBC (Bld) 9.7 % Normal 1.7-12.0 [facility] Comment on above: Performed By: #### C BC ####[facility] Kkqxaskxsv1442 [place] [address]Dr. Garima Pulliam NEUT # 4.9 103/ul Normal 1.4-6.5 [facility] Comment on above: Performed By: #### C BC ####[facility] Btypvehivv7887 [place] [id number]. Garima Heraclio Neutrophils/100 WBC (Bld) 62.7 % Normal 43.0-75.0 [facility] Comment on above: Performed By: #### C BC ####[facility] Swanjexehw2977 [place] [id number]. Garima Heraclio Platelet mean volume (Bld) [Entitic vol] 8.8 fL Critically low 9.5-13.5 [facility] Comment on above: Performed By: #### C BC ####[facility] Ifvvadbfsx7489 [place] [id number]. Garima Heraclio PLT 198 103/ul Normal 150-450 [facility] Comment on above: Performed By: #### C BC ####[facility] Daseqesqou6332 [place] [id number]. Garima Heraclio RBC 4.77 106/ul Normal 4.70-6.10 [facility] Comment on above: Performed By: #### C BC ####[facility] Rnsghivsvu8745 [place] [id number]. Garima Heraclio WBC 7.9 103/ul Normal 4.0-11.0 [facility] Comment on above: Performed By: #### C BC ####[facility] Yekqcyeeas0649 [place] [id number]. Garima Heraclio D-DIMERon 03-22-2023 D-DIMER 0.85 mg/L FEU Critically high <=0.59 [facility] Comment on above: Performed By: #### D DIM ####[facility] Wqbztkhvpu5247 [place] [address]Dr. Garima Pulliam D-DIMER COMMENTS SEE BELOW Normal [facility] [...] generalized hospitalization. Performed By: #### D DIM ####[facility] Patouiyzeq[address] [place], [place] [address]Dr. Garima Pulliam PROF CHEM 8 (BAS METB)on Anion gap [Moles/Vol] 6.9 mmol/L Normal [facility] Comment on above: Performed By: #### B PEARL STRINGER, BMP ####[facility] Lippqexkpk5912 [place] [address]Dr. Garima Pulliam Calcium [Mass/Vol] 8.9 mg/dL Normal 8.5-10.1 [facility] Comment on above: Performed By: #### B PEARL STRINGER, BMP ####[facility] Hxxqdidczd4729 [place] [address]Dr. Garima Pulliam Chloride [Moles/Vol] 101 mmol/L Normal 98-107 [facility] Comment on above: Performed By: #### B PEARL STRINGER, BMP ####[facility] Psnnpgalkj[address] [place], [place] [address]Dr. Chapisrenu Heraclio CO2 [Moles/Vol] 30.7 mmol/L Normal 21.0-32.[address] [facility] Comment on above: Performed By: #### B PEARL STRINGER, BMP ####[facility] Lrnmjoczwz[address] [place], [place] [address]Dr. Garima Pulliam Creatinine [Mass/Vol] 0.82 mg/dL Normal 0.70-1.30 [facility] Comment on above: Performed By: #### B PEARL STRINGER, BMP ####[facility] Otoukeddif[address] [place], [place] [address]Dr. Garima Pulliam EGFR-AF GERMAN >60 Normal >=60 [facility] Comment on above: Performed By: #### B PEARL STRINGER, BMP ####[facility] Qufwmkvwjb[address] [place], [place] [address]Dr. Chapisrenu Heraclio EGFR-NON AF GERMAN >60 Normal >=60 [facility] Comment on above: Performed By: #### B PEARL STRINGER, BMP ####[facility] Eweyewsbwa[address] [place], [place] [address]Dr. Garima Pulliam Glucose [Mass/Vol] 339 mg/dL Critically high 74-106 [facility] Comment on above: Performed By: #### B PEARL STRINGER, BMP ####[facility] Zttrzdezhe[address] [place], [place] [address]Dr. Garima Pulliam Potassium [Moles/Vol] 3.6 mmol/L Normal 3.5-5.1 [facility] Comment on above: Performed By: #### B PEARL STRINGER, BMP ####[facility] Ezmckkctdb[address] [place], [place] [address]Dr. Garima Pulliam Sodium [Moles/Vol] 135 mmol/L Critically low 136-145 [facility] Comment on above: Performed By: #### B PEARL STRINGER, BMP ####[facility] Pqrkjkifxq8[address] [place], [place] [address]Dr. Garima Pulliam Urea nitrogen [Mass/Vol] 11.0 mg/dL Normal 7.0-18.0 [facility] Comment on above: Performed By: #### B PEARL STRINGER, BMP ####[facility] Cfcyovqqqo50[address] [place], [place] [address]Dr. Garima Pulliam Urea nitrogen/Creatinine [Mass ratio] 13.4 mg/mg Normal [facility] Comment on above: Performed By: #### B PEARL STRINGER, BMP ####[facility] Hnsrmdfghv[address] [place], [place] [address]Dr. Garima Pulliam US VERONICA DOP LEG BILon 023 US VERONICA DOP LEG BENOIT Normal [facility] BNPon 03-18-2023 Natriuretic peptide B (Bld) [Mass/Vol] 226.0 pg/mL Normal <=900.0 [facility] Comment on above: Performed By: #### B PEARL STRINGER, BMP ####[facility] Osltoapeoe[address] [place], [place] [address]Dr. Garima Pulliam CBC AUTO DIFFon 03-18-2023 BASO # 0.0 103/ul Normal 0.0-0.1 [facility] Comment on above: Performed By: #### C BC ####[facility] Ulslsivtys[address] [place], [place] [address]Dr. Garima Heraclio Basophils/100 WBC (Bld) 0.2 % Normal 0.2-2.0 [facility] Comment on above: Performed By: #### C BC ####[facility] Ifkhnsaihd73[address] [place], [place] [address]Dr. Garima Pulliam EO # 0.3 103/ul Normal 0.0-0.7 [facility] Comment on above: Performed By: #### C BC ####[facility] Ueawfbconm[address] [place], [place] [address]Dr. Garima Heraclio Eosinophils/100 WBC (Bld) 2.5 % Normal 0.9-7.0 [facility] Comment on above: Performed By: #### C BC ####[facility] Foavxjorxl[address] [place], [place] [address]Dr. Garima Heraclio Erythrocyte distribution width (RBC) [Ratio] 13.2 % Normal 11.0-15.0 [facility] Comment on above: Performed By: #### C BC ####[facility] Bnssnrvhzc0968 [place] [address]DrAdalberto Pulliam Hematocrit (Bld) [Volume fraction] 45.8 % Normal 42.0-54.0 [facility] Comment on above: Performed By: #### C BC ####[facility] Zonpwzswdz9746 [place] [address]DrAdalberto Pulliam Hemoglobin (Bld) [Mass/Vol] 15.3 g/dL Normal 14.0-18.0 [facility] Comment on above: Performed By: #### C BC ####[facility] Hmffxlswcm[address] [place], [place] [address]DrAdalberto Pulliam IG # 0.02 10e3/ul Normal 0.00-0.03 [facility] Comment on above: Performed By: #### C BC ####[facility] Xcnwbxboqv404[address] [place], [place] [address]DrAdalberto Pulliam IG % 0.2 % Normal 0.0-0.5 [facility] Comment on above: Performed By: #### C BC ####[facility] Xsurfqptvj8[address] [place], [place] [address]DrAdalberto Pulliam LYMPH # 1.8 103/ul Normal 1.2-3.8 [facility] Comment on above: Performed By: #### C BC ####[facility] [address]eqlqkdghu[address] [place], [place] [address]DrAdalberto Pulliam Lymphocytes/100 WBC (Bld) 18.3 % Critically low 20.5-60.0 [facility] Comment on above: Performed By: #### C BC ####[facility] [address]fjgxjihgm[address] [place], [place] [address]DrAdalberto Pulliam MANUAL DIFF REQ NO Normal [facility] Comment on above: Performed By: #### C BC ####[facility] Zwommhxwrc6246 [place] [address]DrAdalberto Pulliam MCH (RBC) [Entitic mass] 30.5 pg Normal 25.9-34.0 [facility] Comment on above: Performed By: #### C BC ####[facility] Dmybaxdocu5523 [place] [address]DrAdalberto Pulliam MCHC (RBC) [Mass/Vol] 33.4 g/dL Normal 29.9-35.2 [facility] Comment on above: Performed By: #### C BC ####[facility] Ecuxzivlpy0141 [place] [address]DrAdalberto Pulliam MCV (RBC) [Entitic vol] 91.2 fL Normal 80.0-94.0 [facility] Comment on above: Performed By: #### C BC ####[facility] Hbdzrsgjoh[address] [place], [place] [address]DrAdalberto Pulliam MONO # 0.8 103/ul Normal 0.3-0.8 [facility] Comment on above: Performed By: #### C BC ####[facility] Irxbntrwft4[address] [place], [place] [address]DrAdalberto Pulliam Monocytes/100 WBC (Bld) 7.6 % Normal 1.7-12.0 [facility] Comment on above: Performed By: #### C BC ####[facility] Rphthymyna[address] [place], [place] [address]DrAdalberto Pulliam NEUT # 7.0 103/ul Critically high 1.4-6.[address] [facility] Comment on above: Performed By: #### C BC ####[facility] Xckkbxuwqs4[address] [place], [place] [address]DrAdalberto Pulliam Neutrophils/100 WBC (Bld) 71.2 % Normal 43.0-75.0 [facility] Comment on above: Performed By: #### C BC ####[facility] Jhldknbqdu[address] [place], [place] [address]DrAdalberto Pulliam Platelet mean volume (Bld) [Entitic vol] 8.9 fL Critically low 9.5-13.5 [facility] Comment on above: Performed By: #### C BC ####[facility] Wxvbnbwgwc[address] [place], [place] [address]DrAdalberto Pulliam PLT 217 103/ul Normal 150-450 [facility] Comment on above: Performed By: #### C BC ####[facility] Uvrgdixmij1357 [place] [address]Dr. Garima Heraclio RBC 5.02 106/ul Normal 4.70-6.10 [facility] Comment on above: Performed By: #### C BC ####[facility] Utjgtliizu[address] [place], [place] [address]Dr. Garima Pulliam WBC 9.8 103/ul Normal 4.0-11.0 [facility] Comment on above: Performed By: #### C BC ####[facility] Irtenrmxdy[address] [place], [place] [address]Dr. Garima Heraclio CRPon 03-18-2023 CRP 0.1 mg/dL Normal <=1.0 [facility] Comment on above: Performed By: #### C RP ####[facility] [address]odtfucoeh[address] [place], [place] [address]Dr. Garima Heraclio PROF CHEM 8 (BAS METB)on Anion gap [Moles/Vol] 10.4 mmol/L Normal [facility] Comment on above: Performed By: #### B PEARL STRINGER, BMP ####[facility] F[address]gbvnwwlh[address] [place], [place] [address]Dr. Garima Heraclio Calcium [Mass/Vol] 8.8 mg/dL Normal 8.5-10.1 [facility] Comment on above: Performed By: #### B PEARL STRINGER, BMP ####[facility] [address]rlytosouv[address] [place], [place] [address]Dr. Garima Heraclio Chloride [Moles/Vol] 97 mmol/L Critically low 98-107 [facility] Comment on above: Performed By: #### B PEARL STRINGER, BMP ####[facility] [address]zcdvdxxt[address] [place], [place] [address]Dr. Garima Pulliam CO2 [Moles/Vol] 31.2 mmol/L Normal 21.0-32.[address] [facility] Comment on above: Performed By: #### B PEARL STRINGER, BMP ####[facility] H[address]izouqfw[address] [place], [place] [address]Dr. Garima Pulliam Creatinine [Mass/Vol] 0.91 mg/dL Normal 0.70-1.30 [facility] Comment on above: Performed By: #### B PEARL STRINGER, BMP ####[facility] Eefykxgdfm0086 [place] [address]Dr. Garima Pulliam EGFR-AF GERMAN >60 Normal >=[address] [facility] Comment on above: Performed By: #### B PEARL STRINGER, BMP ####[facility] Vniuvfvozs7040 [place] [id number]. Garima Pulliam EGFR-NON AF GERMAN >60 Normal >=60 [facility] Comment on above: Performed By: #### B PEARL STRINGER, BMP ####[facility] Akdjbsnhan5459 [place] [address]Dr. Garima Pulliam Glucose [Mass/Vol] 315 mg/dL Critically high 74-106 T [facility] Comment on above: Performed By: #### B PEARL STRINGER, BMP ####[facility] Ztdiccsjlz3273 [place] [address]Dr. Garima Pulliam Potassium [Moles/Vol] 3.6 mmol/L Normal 3.5-5.1 [facility] Comment on above: Performed By: #### B PEARL STRINGER, BMP ####[facility] Bpafjokvjt7922 [place] [address]Dr. Garima Pulliam Sodium [Moles/Vol] 135 mmol/L Critically low 136-145 Th [facility] Comment on above: Performed By: #### B PEARL STRINGER, BMP ####[facility] Qtoiuhhdtf5455 [place] [address]Dr. Garima Pulliam Urea nitrogen [Mass/Vol] 7.0 mg/dL Normal 7.0-18.0 [facility] Comment on above: Performed By: #### B PEARL STRINGER, BMP ####[facility] Ezvcbqrdgz2710 [place] [address]Dr. Garima Pulliam Urea nitrogen/Creatinine [Mass ratio] 7.7 mg/mg Normal [facility] Comment on above: Performed By: #### B PEARL STRINGER, BMP ####[facility] Fhydvgwreo4919 [place] [address]Dr. Garima Pulliam SED RATE WESTERGRENon 2022 SED RATE 8 mm/hr Normal <=20 [facility] Comment on above: Performed By: #### S EDR ####[facility] [address]yscdicg[address] [place], [place] [address]Dr. Garima Pulliam BNPon 03-16-2023 Natriuretic peptide B (Bld) [Mass/Vol] 241.0 pg/mL Normal <=900.0 [facility] Comment on above: Performed By: #### B PEARL STRINGER, BMP, HSTROPN ####[facility] Aeylwdjyrg[address] [place], [place] [address]Dr. Garima Heraclio CBC AUTO DIFFon 03-16-2023 BASO # 0.0 103/ul Normal 0.0-0.1 [facility] Comment on above: Performed By: #### C BC ####[facility] Celzxdixef[address] [place], [place] [address]Dr. Chapisrenu Pulliam Basophils/100 WBC (Bld) 0.2 % Normal 0.2-2.0 [facility] Comment on above: Performed By: #### C BC ####[facility] Xcnshjylcp[address] [place], [place] [address]Dr. Garima Pulliam EO # 0.2 103/ul Normal 0.0-0.7 [facility] Comment on above: Performed By: #### C BC ####[facility] Rdbsxxojtv[address] [place], [place] [address]Dr. Chapisrenu Pulliam Eosinophils/100 WBC (Bld) 2.7 % Normal 0.9-7.0 [facility] Comment on above: Performed By: #### C BC ####[facility] [address]qqeqknuz[address] [place], [place] [address]Dr. Garima Pulliam Erythrocyte distribution width (RBC) [Ratio] 13.1 % Normal 11.0-15.0 [facility] Comment on above: Performed By: #### C BC ####[facility] Ytelkmwspe[address] [place], [place] [address]Dr. Garima Pulliam Hematocrit (Bld) [Volume fraction] 41.8 % Critically low 42.0-54.0 [facility] Comment on above: Performed By: #### C BC ####[facility] Gtulwgkuyv5627 [place] [address]Dr. Garima Pulliam Hemoglobin (Bld) [Mass/Vol] 14.0 g/dL Normal 14.0-18.0 [facility] Comment on above: Performed By: #### C BC ####[facility] Gjozobpvkt4613 [place] [address]Dr. Garima Pulliam IG # 0.03 10e3/ul Normal 0.00-0.03 [facility] Comment on above: Performed By: #### C BC ####[facility] Flffadjgya4512 [place] [address]Dr. Garima Pulliam IG % 0.3 % Normal 0.0-0.5 [facility] Comment on above: Performed By: #### C BC ####[facility] [address]qcrfpwm[address] [place], [place] [address]Dr. Chapisrenu Pulliam LYMPH # 2.1 103/ul Normal 1.2-3.8 [facility] Comment on above: Performed By: #### C BC ####[facility] Msmunxvuon[address] [place], [place] [address]Dr. Chapisrenu Pulliam Lymphocytes/100 WBC (Bld) 24.2 % Normal 20.5-60.0 [facility] Comment on above: Performed By: #### C BC ####[facility] Mpafrbweru99[address] [place] [address]Dr. Garima Pulliam MANUAL DIFF REQ NO Normal [facility] Comment on above: Performed By: #### C BC ####[facility] Krjvtjtlim0327 [place] [address]Dr. Garima Pulliam MCH (RBC) [Entitic mass] 30.2 pg Normal 25.9-34.0 [facility] Comment on above: Performed By: #### C BC ####[facility] Hwlylhgnfe7654 [place] [address]Dr. Garima Pulliam MCHC (RBC) [Mass/Vol] 33.5 g/dL Normal 29.9-35.2 [facility] Comment on above: Performed By: #### C BC ####[facility] Bmhtcrhwge8525 [place] [id number]. Garima Pulliam MCV (RBC) [Entitic vol] 90.1 fL Normal 80.0-94.0 [facility] Comment on above: Performed By: #### C BC ####[facility] Ynolmlavrd6553 [place] [id number]. Garima Pulliam MONO # 0.6 103/ul Normal 0.3-0.8 [facility] Comment on above: Performed By: #### C BC ####[facility] [facility] [address] [place] [address]Dr. Garima Heraclio Monocytes/100 WBC (Bld) 7.4 % Normal 1.7-12.0 [facility] Comment on above: Performed By: #### C BC ####[facility] Tibjrtfvus[address] [place], [place] [address]Dr. Garima Pulliam NEUT # 5.6 103/ul Normal 1.4-6.5 [facility] Comment on above: Performed By: #### C BC ####[facility] [address] [place], [place] [address]Dr. Garima Heraclio Neutrophils/100 WBC (Bld) 65.2 % Normal 43.0-75.0 [facility] Comment on above: Performed By: #### C BC ####[facility] [address]zjabxvv4[address] [place] [id number]. Garima Heraclio Platelet mean volume (Bld) [Entitic vol] 8.7 fL Critically low 9.5-13.5 [facility] Comment on above: Performed By: #### C BC ####[facility] [address] [place], [place] [id number]. Garima Heraclio PLT 195 103/ul Normal 150-450 [facility] Comment on above: Performed By: #### C BC ####[facility] Ywmwpkcbie[address] [place] [id number]. Garima Pulliam RBC 4.64 106/ul Critically low 4.70-6.[address] [facility] Comment on above: Performed By: #### C BC ####[facility] Jrwbzbhrqo35[address] [place] [address]Dr. Garima Pulliam WBC 8.6 103/ul Normal 4.0-11.0 [facility] Comment on above: Performed By: #### C BC ####[facility] K[address]hxxwebv[address] [place] [address]Dr. Garima Pulliam PROF CHEM 8 (BAS METB)on Anion gap [Moles/Vol] 6.7 mmol/L Normal [facility] Comment on above: Performed By: #### B PEARL STRINGER, BMP, HSTROPN ####[facility] [address]okybnsoey[address] [place] [address]Dr. Garima Pulliam Calcium [Mass/Vol] 8.8 mg/dL Normal 8.5-10.1 [facility] Comment on above: Performed By: #### B PEARL STRINGER, BMP, HSTROPN ####[facility] [address]kwhe[address]qdo[address] [place], [place] [address]Dr. Garima Pulliam Chloride [Moles/Vol] 106 mmol/L Normal 98-107 [facility] Comment on above: Performed By: #### B PEARL STRINGER, BMP, HSTROPN ####[facility] [address]wze[address] [place], [place] [address]Dr. Garima Pulliam CO2 [Moles/Vol] 31.4 mmol/L Normal 21.0-32.0 [facility] Comment on above: Performed By: #### B PEARL STRINGER, BMP, HSTROPN ####[facility] Telcrisxxm[address] [place], [place] [address]Dr. Garima Pulliam Creatinine [Mass/Vol] 0.75 mg/dL Normal 0.70-1.30 [facility] Comment on above: Performed By: #### B PEARL STRINGER, BMP, HSTROPN ####[facility] Vasztafsrh[address] [place] [address]Dr. Garima Pulliam EGFR-AF GERMAN >60 Normal >=60 [facility] Comment on above: Performed By: #### B PEARL STRINGER, BMP, HSTROPN ####[facility] Zjlvjutmew[address] [place] [address]Dr. Garima Pulliam EGFR-NON AF GERMAN >60 Normal >=60 [facility] Comment on above: Performed By: #### B PEARL STRINGER, BMP, HSTROPN ####[facility] Bywingkmsr[address] [place] [address]Dr. Garima Pulliam Glucose [Mass/Vol] 161 mg/dL Critically high 74-106 T [facility] Comment on above: Performed By: #### B PEARL STRINGER, BMP, HSTROPN ####[facility] Wxbprtvlhk20[address] [place] [address]Dr. Garima Pulliam Potassium [Moles/Vol] 4.1 mmol/L Normal 3.5-5.1 [facility] Comment on above: Performed By: #### B PEARL STRINGER, BMP, HSTROPN ####[facility] Ispunfakhn90[address] [place] [address]Dr. Garima Pulliam Sodium [Moles/Vol] 140 mmol/L Normal 136-145 [facility] Comment on above: Performed By: #### B PEARL STRINGER, BMP, HSTROPN ####[facility] Mpqfffyqgh30[address] [place] [address]Dr. Garima Pulliam Urea nitrogen [Mass/Vol] 7.0 mg/dL Normal 7.0-18.0 [facility] Comment on above: Performed By: #### B PEARL STRINGER, BMP, HSTROPN ####[facility] Ulznzswtqa[address] [place] [address]Dr. Garima Pulliam Urea nitrogen/Creatinine [Mass ratio] 9.3 mg/mg Normal [facility] Comment on above: Performed By: #### B PEARL STRINGER, BMP, HSTROPN ####[facility] Txfncrcnbx[address] [place] [address]Dr. Garima Pulliam TROPONIN, HIGH SENSITIVITYon 03-16-2023 HSTROP 9.7 pg/mL Normal 4.0-76.1 [facility] Comment on above: Result Comment: CUT- OFF POINTS HAVE BEEN ESTABLISHED BASED ON THE FOURTH UNIVERSAL DEFINITIONS OF MYOCARDIALINFARCTION. THE UPPER REFERENCE LIMIT (URL) OF TROPONIN, DEFINED THE 99TH PERCENTILE OFcTnI DISTRIBUTION IN A REFERENCE POPULATION, HAS BEEN CONFIRMED THE DECISION THRESHOLDFOR OR DIAGNOSIS. Performed By: #### B PEARL STRINGER, BMP, HSTROPN ####[facility] Znkyrvjtfn[address] [place] [address]Dr. Garima Pulliam XR CHEST 1 Von 03-16-2023 XR CHEST 1 V Normal [facility] BNPon 03-06-2023 Natriuretic peptide B (Bld) [Mass/Vol] 111.0 pg/mL Normal <=900.0 [facility] Comment on above: Performed By: #### C MP, BNP, CK ####[facility] Gjgpoanpaw[address] [place] [address]Dr. Chapisrenu Pulliam CBC AUTO DIFFon 03-06-2023 BASO # 0.0 103/ul Normal 0.0-0.1 [facility] Comment on above: Performed By: #### C BC ####[facility] Bnutgaeats[address] [place], [place] [address]Dr. Garima Pulliam Basophils/100 WBC (Bld) 0.2 % Normal 0.2-2.0 [facility] Comment on above: Performed By: #### C BC ####[facility] Abvslworpd[address] [place], [place] [address]Dr. Garima Pulliam EO # 0.3 103/ul Normal 0.0-0.7 [facility] Comment on above: Performed By: #### C BC ####[facility] F[address]wdqyonxc[address] [place], [place] [address]Dr. Garima Pulliam Eosinophils/100 WBC (Bld) 3.5 % Normal 0.9-7.0 [facility] Comment on above: Performed By: #### C BC ####[facility] Qdxllymwsz[address] [place], [place] [address]Dr. Garima Pulliam Erythrocyte distribution width (RBC) [Ratio] 13.3 % Normal 11.0-15.0 [facility] Comment on above: Performed By: #### C BC ####[facility] Qckjqvsnfz[address] [place], [place] [address]Dr. Garima Pulliam Hematocrit (Bld) [Volume fraction] 43.7 % Normal 42.0-54.0 [facility] Comment on above: Performed By: #### C BC ####[facility] Fszrecjqkr3[address] [place] [address]Dr. Garima Pulliam Hemoglobin (Bld) [Mass/Vol] 14.7 g/dL Normal 14.0-18.0 [facility] Comment on above: Performed By: #### C BC ####[facility] Gnyvzrclce[address] [place] [address]Dr. Chapisrenu Heraclio IG # 0.03 10e3/ul Normal 0.00-0.03 [facility] Comment on above: Performed By: #### C BC ####[facility] W[address]nkqsczv[address] [place], [place] [address]Dr. Garima Pulliam IG % 0.4 % Normal 0.0-0.5 [facility] Comment on above: Performed By: #### C BC ####[facility] Kyuknscddp[address] [place], [place] [address]Dr. Garima Pulliam LYMPH # 2.0 103/ul Normal 1.2-3.8 [facility] Comment on above: Performed By: #### C BC ####[facility] Nyazvaihlm[address] [place], [place] [address]DrAdalberto Pulliam Lymphocytes/100 WBC (Bld) 23.7 % Normal 20.5-60.0 [facility] Comment on above: Performed By: #### C BC ####[facility] Undeqgqxpl[address] [place] [address]Dr. Garima Pulliam MANUAL DIFF REQ NO Normal [facility] Comment on above: Performed By: #### C BC ####[facility] Dmcejtuaws0414 [place] [id number] Pulliam MCH (RBC) [Entitic mass] 30.1 pg Normal 25.9-34.0 [facility] Comment on above: Performed By: #### C BC ####[facility] Pubsdpfooa8624 [place] [id number]. Garima Pulliam MCHC (RBC) [Mass/Vol] 33.6 g/dL Normal 29.9-35.2 [facility] Comment on above: Performed By: #### C BC ####[facility] Javmscozbd55[address] [place] [address]Dr. Garima Heraclio MCV (RBC) [Entitic vol] 89.4 fL Normal 80.0-94.0 [facility] Comment on above: Performed By: #### C BC ####[facility] Ddowwhgoly[address] [place] [address]Dr. Garima Pulliam MONO # 0.8 103/ul Normal 0.3-0.8 [facility] Comment on above: Performed By: #### C BC ####[facility] Wimtiddiqd[address] [place] [address]Dr. Garima Pulliam Monocytes/100 WBC (Bld) 9.0 % Normal 1.7-12.0 [facility] Comment on above: Performed By: #### C BC ####[facility] [address]qta[address] [place], [place] [address]Dr. Garima Pulliam NEUT # 5.4 103/ul Normal 1.4-6.5 [facility] Comment on above: Performed By: #### C BC ####[facility] [address]pydpgcc[address] [place], [place] [address]Dr. Garima Pulliam Neutrophils/100 WBC (Bld) 63.2 % Normal 43.0-75.0 [facility] Comment on above: Performed By: #### C BC ####[facility] Grhcbbxdri[address] [place], [place] [address]Dr. aGrima Pulliam Platelet mean volume (Bld) [Entitic vol] 9.0 fL Critically low 9.5-13.5 [facility] Comment on above: Performed By: #### C BC ####[facility] Sl[address]fm[address] [place], [place] [address]Dr. Garima Pulliam PLT 218 103/ul Normal 150-450 [facility] Comment on above: Performed By: #### C BC ####[facility] D[address]zmnoqhu[address] [place] [id number]. Garima Pulliam RBC 4.89 106/ul Normal 4.70-6.10 [facility] Comment on above: Performed By: #### C BC ####[facility] Dlfrazbqua32[address] [place] [address]Dr. Garima Pulliam WBC 8.5 103/ul Normal 4.0-11.0 [facility] Comment on above: Performed By: #### C BC ####[facility] Daneceddwb[address] [place] [address]Dr. Garima Pulliam CPKon 03-06-2023 CK [Catalytic activity/Vol] 191 U/L Normal 39-308 [facility] Comment on above: Performed By: #### C MP, BNP, CK ####[facility] K[address]nzktzbt[address] [place] [address]Dr. Garima Pulliam PROF 14(COMP METB)on 023 Albumin [Mass/Vol] 3.6 g/dL Normal 3.4-5.0 [facility] Comment on above: Performed By: #### C MP, BNP, CK ####[facility] Weovycoglz0066 [place] [address]Dr. Garima Pulliam Albumin/Globulin [Mass ratio] 1.2 {ratio} Normal [facility] Comment on above: Performed By: #### C MP, BNP, CK ####[facility] Pgdfdtefqg9454 [place] [address]Dr. Garmia Pulliam ALP [Catalytic activity/Vol] 91 U/L Normal 46-116 [facility] Comment on above: Performed By: #### C MP, BNP, CK ####[facility] Kznjvmhmjg3[address] [place] [address]Dr. Garima Pulliam ALT [Catalytic activity/Vol] 33 U/L Normal 16-63 [facility] Comment on above: Performed By: #### C MP, BNP, CK ####[facility] Hvtzauowar8[address] [place] [address]Dr. Garima Pulliam Anion gap [Moles/Vol] 10.3 mmol/L Normal [facility] Comment on above: Performed By: #### C MP, BNP, CK ####[facility] Gazmcbgvpb4[address] [place] [address]Dr. Garima Pulliam AST [Catalytic activity/Vol] 17 U/L Normal 15-37 [facility] Comment on above: Performed By: #### C MP, BNP, CK ####[facility] Ouhcdjqwmj22[address] [place] [address]Dr. Garima Pulliam Bilirubin [Mass/Vol] 0.4 mg/dL Normal 0.2-1.0 [facility] Comment on above: Performed By: #### C MP, BNP, CK ####[facility] Ymjmjjegho2233 [place] [address]Dr. Garima Pulliam Calcium [Mass/Vol] 9.1 mg/dL Normal 8.5-10.1 [facility] Comment on above: Performed By: #### C MP, BNP, CK ####[facility] Upkinaqydr27[address] [place] [address]Dr. Garima Pulliam Chloride [Moles/Vol] 102 mmol/L Normal 98-107 [facility] Comment on above: Performed By: #### C MP, BNP, CK ####[facility] Aiiolwbnst2744 [place] [address]Dr. Garima Pulliam CO2 [Moles/Vol] 29.7 mmol/L Normal 21.0-32.0 [facility] Comment on above: Performed By: #### C MP, BNP, CK ####[facility] Mnqrckbbzj4986 [place] [address]Dr. Garima Pulliam Creatinine [Mass/Vol] 0.79 mg/dL Normal 0.70-1.30 [facility] Comment on above: Performed By: #### C MP, BNP, CK ####[facility] Hwtqkgvglg89[address] [place] [address]Dr. Garima Pulliam EGFR-AF GERMAN >60 Normal >=60 [facility] Comment on above: Performed By: #### C MP, BNP, CK ####[facility] Pwdsnmcumr6225 [place] [address]Dr. Garima Pulliam EGFR-NON AF GERMAN >60 Normal >=60 [facility] Comment on above: Performed By: #### C MP, BNP, CK ####[facility] Ckkqjqojor1295 [place] [address]Dr. Garima Pulliam Globulin (S) [Mass/Vol] 3.0 g/dL Normal [facility] Comment on above: Performed By: #### C MP, BNP, CK ####[facility] Uqxnprbqww78[address] [place] [address]Dr. Garima Pulliam Glucose [Mass/Vol] 202 mg/dL Critically high 74-106 [facility] Comment on above: Performed By: #### C MP, BNP, CK ####[facility] Zcayoguvpo023[address] [place] [address]Dr. Garima Pulliam Potassium [Moles/Vol] 4.0 mmol/L Normal 3.5-5.1 [facility] Comment on above: Performed By: #### C MP, BNP, CK ####[facility] Dvphxbcwbn8814 [place] [address]Dr. Garima Pulliam Protein [Mass/Vol] 6.6 g/dL Normal 6.4-8.2 [facility] Comment on above: Performed By: #### C MP, BNP, CK ####[facility] [address]vq[address]ett[address] [place], [place] [address]Dr. Garima Pulliam Sodium [Moles/Vol] 138 mmol/L Normal 136-145 [facility] Comment on above: Performed By: #### C MP, BNP, CK ####[facility] Bqrxrxauom6[address] [place], [place] [address]Dr. Garima Pulliam Urea nitrogen [Mass/Vol] 10.0 mg/dL Normal 7.0-18.0 [facility] Comment on above: Performed By: #### C MP, BNP, CK ####[facility] Vondcuyniw97[address] [place] [address]Dr. Garima Pulliam Urea nitrogen/Creatinine [Mass ratio] 12.7 mg/mg Normal [facility] Comment on above: Performed By: #### C MP, BNP, CK ####[facility] Nqcafvyswn49[address] [place] [address]Dr. Garima Pulliam US VERONICA DOP LEG BILon 023 US VERONICA DOP LEG BENOIT Normal [facility] CBC AUTO DIFFon 01-13-2023 BASO # 0.0 103/ul Normal 0.0-0.1 [facility] Comment on above: Performed By: #### C BC ####[facility] Gtkaemnrtd4482 [place] [id number]. Chapisrenu Pulliam Basophils/100 WBC (Bld) 0.0 % Critically low 0.2-2.0 [facility] Comment on above: Performed By: #### C BC ####[facility] Vejalhlhdi9187 [place] [address]Dr. Garima Pulliam EO # 0.0 103/ul Normal 0.0-0.7 [facility] Comment on above: Performed By: #### C BC ####[facility] I[address]knmpjr[address] [place], [place] [address]Dr. Garima Pulliam Eosinophils/100 WBC (Bld) 0.0 % Critically low 0.9-7.0 [facility] Comment on above: Performed By: #### C BC ####[facility] Tsdkckldsn5559 [place] [address]Dr. Garima Pulliam Erythrocyte distribution width (RBC) [Ratio] 13.2 % Normal 11.0-15.0 [facility] Comment on above: Performed By: #### C BC ####[facility] Swmppsftfi[address] [place], [place] [address]Dr. Garima Pulliam Hematocrit (Bld) [Volume fraction] 46.7 % Normal 42.0-54.0 [facility] Comment on above: Performed By: #### C BC ####[facility] Ialloqgipf[address] [place], [place] [address]Dr. Garima Pulliam Hemoglobin (Bld) [Mass/Vol] 15.6 g/dL Normal 14.0-18.0 [facility] Comment on above: Performed By: #### C BC ####[facility] Nevcdyjdtz[address] [place], [place] [address]Dr. Garima Pulliam IG # 0.01 10e3/ul Normal 0.00-0.03 [facility] Comment on above: Performed By: #### C BC ####[facility] Xdjdqurvxx2383 [place] [id number]. Garima Pulliam IG % 0.2 % Normal 0.0-0.5 [facility] Comment on above: Performed By: #### C BC ####[facility] Thecpclfvf8401 [place] [id number]. Garima Pulliam LYMPH # 0.8 103/ul Critically low 1.2-3.8 [facility] Comment on above: Performed By: #### C BC ####[facility] Pktghrudjf7569 [place] [id number]. Garima Pulliam Lymphocytes/100 WBC (Bld) 12.7 % Critically low 20.5-60.0 [facility] Comment on above: Performed By: #### C BC ####[facility] Ydckkrbgxf0969 [place] [address]Dr. Garima Pulliam MANUAL DIFF REQ NO Normal [facility] Comment on above: Performed By: #### C BC ####[facility] Xglesaxzau0284 [place] [id number]. Garima Pulliam MCH (RBC) [Entitic mass] 30.2 pg Normal 25.9-34.0 [facility] Comment on above: Performed By: #### C BC ####[facility] Pmgdtetrok4855 [place] [id number]. Garima Pulliam MCHC (RBC) [Mass/Vol] 33.4 g/dL Normal 29.9-35.2 [facility] Comment on above: Performed By: #### C BC ####[facility] Lwvvfqpdie9704 [place] [id number]. Garima Pulliam MCV (RBC) [Entitic vol] 90.3 fL Normal 80.0-94.0 [facility] Comment on above: Performed By: #### C BC ####[facility] Lxlwdeyexs5499 [place] [id number]. Garima Heraclio MONO # 0.1 103/ul Critically low 0.3-0.8 [facility] Comment on above: Performed By: #### C BC ####[facility] Grkuozsqxz7334 [place] [id number]. Garima Pulliam Monocytes/100 WBC (Bld) 0.9 % Critically low 1.7-12.0 [facility] Comment on above: Performed By: #### C BC ####[facility] Jcgxqctpov7918 [place] [id number]. Garima Pulliam NEUT # 5.6 103/ul Normal 1.4-6.5 [facility] Comment on above: Performed By: #### C BC ####[facility] Wxicyngjun7509 [place] [id number]. Garima Pulliam Neutrophils/100 WBC (Bld) 86.2 % Critically high 43.0-75.0 [facility] Comment on above: Performed By: #### C BC ####[facility] Svscqhxzsk8403 [place] [address]Dr. Garima Pulliam Platelet mean volume (Bld) [Entitic vol] 9.1 fL Critically low 9.5-13.5 [facility] Comment on above: Performed By: #### C BC ####[facility] [address]ynbukudnz64[address] [place], [place] [address]Dr. Garima Pulliam PLT 169 103/ul Normal 150-450 [facility] Comment on above: Performed By: #### C BC ####[facility] Ddhxkgwmru8[address] [place], [place] [address]Dr. Garima Pulliam RBC 5.17 106/ul Normal 4.70-6.10 [facility] Comment on above: Performed By: #### C BC ####[facility] K[address]frskqi[address] [place], [place] [address]Dr. Garima Pulliam WBC 6.5 103/ul Normal 4.0-11.0 [facility] Comment on above: Performed By: #### C BC ####[facility] Yuhbvrhbwd[address] [place], [place] [address]Dr. Garima Pulliam D-DIMERon 01-13-2023 D-DIMER 0.41 mg/L FEU Normal <=0.59 [facility] Comment on above: Performed By: #### D DIM ####[facility] Qxdkvohivy0826 [place] [address]Dr. Garima Pulliam D-DIMER COMMENTS SEE BELOW Normal [facility] [...] generalized hospitalization. Performed By: #### D DIM ####[facility] [address]dtiedxr[address] [place], [place] [address]Dr. Garima Pulliam PROF 14(COMP METB)on 023 Albumin [Mass/Vol] 3.4 g/dL Normal 3.4-5.0 [facility] Comment on above: Performed By: #### C MP ####[facility] Nmxcuzseat68[address] [place], [place] [address]Dr. Garima Pulliam Albumin/Globulin [Mass ratio] 1.3 {ratio} Normal [facility] Comment on above: Performed By: #### C MP ####[facility] Mfacfbnibr85[address] [place], [place] [address]Dr. Garima Pulliam ALP [Catalytic activity/Vol] 83 U/L Normal 46-116 [facility] Comment on above: Performed By: #### C MP ####[facility] Lkhgcbfgzp[address] [place], [place] [address]Dr. Garima Pulliam ALT [Catalytic activity/Vol] 25 U/L Normal 16-63 [facility] Comment on above: Performed By: #### C MP ####[facility] Ulmxhrhsur7165 [place] [address]Dr. Garima Pulliam Anion gap [Moles/Vol] 14.5 mmol/L Normal [facility] Comment on above: Performed By: #### C MP ####[facility] Tzcnsdwwlg[address] [place], [place] [address]Dr. Garima Pulliam AST [Catalytic activity/Vol] 19 U/L Normal 15-37 [facility] Comment on above: Performed By: #### C MP ####[facility] Szmnmaqxrk[address] [place], [place] [address]Dr. Garima Pulliam Bilirubin [Mass/Vol] 0.4 mg/dL Normal 0.2-1.0 [facility] Comment on above: Performed By: #### C MP ####[facility] Uzdqvkoxuf[address] [place], [place] [address]Dr. Garima Pulliam Calcium [Mass/Vol] 8.7 mg/dL Normal 8.5-10.1 [facility] Comment on above: Performed By: #### C MP ####[facility] Dsqwvjegpg[address] [place], [place] [address]Dr. Garima Pulliam Chloride [Moles/Vol] 104 mmol/L Normal 98-107 [facility] Comment on above: Performed By: #### C MP ####[facility] Zjqvsmjsjm9[address] [place], [place] [address]Dr. Garima Pulliam CO2 [Moles/Vol] 24.5 mmol/L Normal 21.0-32.0 [facility] Comment on above: Performed By: #### C MP ####[facility] Tdbvdzjqkl[address] [place], [place] [address]Dr. Garima Pulliam Creatinine [Mass/Vol] 0.70 mg/dL Normal 0.70-1.30 [facility] Comment on above: Performed By: #### C MP ####[facility] O[address]vqremp[address] [place], [place] [address]Dr. Garima Heraclio EGFR-AF GERMAN >60 Normal >=60 [facility] Comment on above: Performed By: #### C MP ####[facility] [address]ommzzyypz[address] [place], [place] [address]Dr. Chapisrenu Heraclio EGFR-NON AF GERMAN >60 Normal >=60 [facility] Comment on above: Performed By: #### C MP ####[facility] Eqtuiwsshp[address] [place], [place] [address]Dr. Chapisrenu Pulliam Globulin (S) [Mass/Vol] 2.6 g/dL Normal [facility] Comment on above: Performed By: #### C MP ####[facility] Icoklepwtv01[address] [place] [address]Dr. Garima Pulliam Glucose [Mass/Vol] 196 mg/dL Critically high 74-106 [facility] Comment on above: Performed By: #### C MP ####[facility] Qbctpxszfe4857 [place] [address]Dr. Garima Pulliam Potassium [Moles/Vol] 4.0 mmol/L Normal 3.5-5.1 [facility] Comment on above: Performed By: #### C MP ####[facility] Zbzqkuptch6548 [place] [address]Dr. Garima Pulliam Protein [Mass/Vol] 6.0 g/dL Critically low 6.4-8.2 [facility] Comment on above: Performed By: #### C MP ####[facility] [address]mngdqt[address] [place], [place] [address]Dr. Garima Pulliam Sodium [Moles/Vol] 139 mmol/L Normal 136-145 [facility] Comment on above: Performed By: #### C MP ####[facility] [address]ayjfuq[address] [place], [place] [address]Dr. Garima Pulliam Urea nitrogen [Mass/Vol] 7.0 mg/dL Normal 7.0-18.0 [facility] Comment on above: Performed By: #### C MP ####[facility] [address]ndlsbup[address] [place], [place] [address]Dr. Garima Heraclio Urea nitrogen/Creatinine [Mass ratio] 10.0 mg/mg Normal [facility] Comment on above: Performed By: #### C MP ####[facility] K[address]lwjpokl[address] [place], [place] [address]Dr. Garima Heraclio BNPon 01-12-2023 Natriuretic peptide B (Bld) [Mass/Vol] 141.0 pg/mL Normal <=900.0 [facility] Comment on above: Performed By: #### C MP, BNP, HSTROPN ####[facility] Y[address]omye[address] [place], [place] [address]Dr. Garima Heraclio CBC AUTO DIFFon 01-12-2023 BASO # 0.0 103/ul Normal 0.0-0.1 [facility] Comment on above: Performed By: #### C BC ####[facility] Uphpjoksqc9487 [place] [id number]. Garima Heraclio Basophils/100 WBC (Bld) 0.2 % Normal 0.2-2.0 [facility] Comment on above: Performed By: #### C BC ####[facility] Tolauamltc[address] [place] [address]Dr. Garima Heraclio EO # 0.2 103/ul Normal 0.0-0.7 [facility] Comment on above: Performed By: #### C BC ####[facility] [address]kdzb[address] [place] [address]Dr. Garima Heraclio Eosinophils/100 WBC (Bld) 2.7 % Normal 0.9-7.0 [facility] Comment on above: Performed By: #### C BC ####[facility] [address]kulxv[address] [place], [place] [address]Dr. Garima Pulliam Erythrocyte distribution width (RBC) [Ratio] 13.3 % Normal 11.0-15.0 [facility] Comment on above: Performed By: #### C BC ####[facility] Zfpriafurs[address] [place], [place] [address]Dr. Garima Pulliam Hematocrit (Bld) [Volume fraction] 42.3 % Normal 42.0-54.0 [facility] Comment on above: Performed By: #### C BC ####[facility] Spuajyhtvp[address] [place], [place] [address]Dr. Garima Pulliam Hemoglobin (Bld) [Mass/Vol] 14.3 g/dL Normal 14.0-18.0 [facility] Comment on above: Performed By: #### C BC ####[facility] Ctnkqqozen[address] [place], [place] [address]Dr. Garima Pulliam IG # 0.02 10e3/ul Normal 0.00-0.03 [facility] Comment on above: Performed By: #### C BC ####[facility] Yirgrzderl[address] [place] [id number]. Garima Pulliam IG % 0.2 % Normal 0.0-0.5 [facility] Comment on above: Performed By: #### C BC ####[facility] Rmfgnwtneu3858 [place] [id number]. Garima Pulliam LYMPH # 2.6 103/ul Normal 1.2-3.8 [facility] Comment on above: Performed By: #### C BC ####[facility] Zcnlgdlbth8419 [place] [id number]. Garima Heraclio Lymphocytes/100 WBC (Bld) 29.6 % Normal 20.5-60.0 [facility] Comment on above: Performed By: #### C BC ####[facility] H[address]szutarj[address] [place] [address]Dr. Garima Hearclio MANUAL DIFF REQ NO Normal [facility] Comment on above: Performed By: #### C BC ####[facility] Luebidsjma4[address] [place] [id number]. Garima Pulliam MCH (RBC) [Entitic mass] 30.2 pg Normal 25.9-34.0 [facility] Comment on above: Performed By: #### C BC ####[facility] Ampnsudzho43[address] [place] [address]Dr. Garima Pulliam MCHC (RBC) [Mass/Vol] 33.8 g/dL Normal 29.9-35.2 [facility] Comment on above: Performed By: #### C BC ####[facility] Iwvasjchwa1798 [place] [id number]. Garima Pulliam MCV (RBC) [Entitic vol] 89.2 fL Normal 80.0-94.0 [facility] Comment on above: Performed By: #### C BC ####[facility] [address]xbq[address]eb[address] [place], [place] [address]Dr. Chapisrenu Pulliam MONO # 0.7 103/ul Normal 0.3-0.8 [facility] Comment on above: Performed By: #### C BC ####[facility] Jgwsczkuft0606 [place] [id number]. Garima Pulliam Monocytes/100 WBC (Bld) 8.3 % Normal 1.7-12.0 [facility] Comment on above: Performed By: #### C BC ####[facility] Bfhzpxecvs5188 [place] [id number]. Garima Pulliam NEUT # 5.1 103/ul Normal 1.4-6.5 [facility] Comment on above: Performed By: #### C BC ####[facility] Osuhhwueva85[address] [place] [id number]. Garima Pulliam Neutrophils/100 WBC (Bld) 59.0 % Normal 43.0-75.0 [facility] Comment on above: Performed By: #### C BC ####[facility] Asygilhjyi0652 [place] [address]Dr. Garima Pulliam Platelet mean volume (Bld) [Entitic vol] 8.7 fL Critically low 9.5-13.5 [facility] Comment on above: Performed By: #### C BC ####[facility] Wdfrptxwag63[address] [place] [address]Dr. Garima Pulliam PLT 182 103/ul Normal 150-450 [facility] Comment on above: Performed By: #### C BC ####[facility] Szizqalyjc7607 [place] [id number]. Garima Pulliam RBC 4.74 106/ul Normal 4.70-6.10 [facility] Comment on above: Performed By: #### C BC ####[facility] Fpbt[address]xj[address] [place], [place] [address]Dr. Garima Pulliam WBC 8.7 103/ul Normal 4.0-11.0 [facility] Comment on above: Performed By: #### C BC ####[facility] Kmdwxplcrc[address] [place], [place] [address]Dr. Garima Pulliam Covid-19 PCR (CVDTB)on 12-25 SARS-CoV-2 (COVID-19) RNA MARIE+probe Ql (Unsp spec) Not detected Normal NOT DETECTED [facility] Comment on above: Result Comment: When [...] for this test is supported by the Want Ad Clerk of Health and Human Service's declaration that [...] be used). Performed By: #### C VDTBH ####[facility] Lfhoigvvhz[address] [place] [address]Dr. Garima Pulliam PROF 14(COMP METB)on 023 Albumin [Mass/Vol] 3.6 g/dL Normal 3.4-5.0 [facility] Comment on above: Performed By: #### C MP, BNP, HSTROPN ####[facility] Byoygcqwwr380[address] [place] [address]Dr. Garima Pulliam Albumin/Globulin [Mass ratio] 1.5 {ratio} Normal [facility] Comment on above: Performed By: #### C MP, BNP, HSTROPN ####[facility] Jnjqkireyl7[address] [place] [address]Dr. Garima Pulliam ALP [Catalytic activity/Vol] 79 U/L Normal 46-116 [facility] Comment on above: Performed By: #### C MP, BNP, HSTROPN ####[facility] Dfwdsidnoz1404 [place] [address]Dr. Garima Pulliam ALT [Catalytic activity/Vol] 27 U/L Normal 16-63 [facility] Comment on above: Performed By: #### C MP, BNP, HSTROPN ####[facility] Xlizugjzwh4796 [place] [address]Dr. Garima Pulliam Anion gap [Moles/Vol] 11.7 mmol/L Normal [facility] Comment on above: Performed By: #### C MP, BNP, HSTROPN ####[facility] Rxrdsnbevy2197 [place] [address]Dr. Garima Pulliam AST [Catalytic activity/Vol] 21 U/L Normal 15-37 [facility] Comment on above: Performed By: #### C MP, BNP, HSTROPN ####[facility] Mrouaoxrcd2713 [place] [address]Dr. Garima Pulliam Bilirubin [Mass/Vol] 0.3 mg/dL Normal 0.2-1.0 [facility] Comment on above: Performed By: #### C MP, BNP, HSTROPN ####[facility] Schdthwlst55[address] [place] [address]Dr. Garima Pulliam Calcium [Mass/Vol] 8.9 mg/dL Normal 8.5-10.1 [facility] Comment on above: Performed By: #### C MP, BNP, HSTROPN ####[facility] Nczkpbymln1124 [place] [address]Dr. Garima Pulliam Chloride [Moles/Vol] 107 mmol/L Normal 98-107 [facility] Comment on above: Performed By: #### C MP, BNP, HSTROPN ####[facility] Vpgelaeonj1398 [place] [address]Dr. Garima Pulliam CO2 [Moles/Vol] 26.0 mmol/L Normal 21.0-32.0 [facility] Comment on above: Performed By: #### C MP, BNP, HSTROPN ####[facility] Cvglqxnzxs5740 [place] [address]Dr. Garima Pulliam Creatinine [Mass/Vol] 0.65 mg/dL Critically low 0.70-1.30 [facility] Comment on above: Performed By: #### C MP, BNP, HSTROPN ####[facility] Usgabyiyti[address] [place] [address]Dr. Yilan Pulliam EGFR-AF GERMAN >60 Normal >=[address] [facility] Comment on above: Performed By: #### C MP, BNP, HSTROPN ####[facility] Ykrvertuoj7103 [place] [address]Dr. Garima Pulliam EGFR-NON AF GERMAN >60 Normal >=60 [facility] Comment on above: Performed By: #### C MP, BNP, HSTROPN ####[facility] Vxgftjyfbm8287 [place] [address]Dr. Garima Pulliam Globulin (S) [Mass/Vol] 2.4 g/dL Normal [facility] Comment on above: Performed By: #### C MP, BNP, HSTROPN ####[facility] Tcpabreetp[address] [place], [place] [address]Dr. Garima Pulliam Glucose [Mass/Vol] 85 mg/dL Normal 74-106 [facility] Comment on above: Performed By: #### C MP, BNP, HSTROPN ####[facility] Vqrorxngkj7[address] [place] [address]Dr. Garima Pulliam Potassium [Moles/Vol] 3.7 mmol/L Normal 3.5-5.1 [facility] Comment on above: Performed By: #### C MP, BNP, HSTROPN ####[facility] Huqhsafbgp16[address] [place] [address]Dr. Garima Pulliam Protein [Mass/Vol] 6.0 g/dL Critically low 6.4-8.2 [facility] Comment on above: Performed By: #### C MP, BNP, HSTROPN ####[facility] Yzcbtrrgvs7713 [place] [address]Dr. Garima Pulliam Sodium [Moles/Vol] 141 mmol/L Normal 136-145 [facility] Comment on above: Performed By: #### C MP, BNP, HSTROPN ####[facility] Zpdvtshrkb1026 [place] [address]Dr. Garima Pulliam Urea nitrogen [Mass/Vol] 5.0 mg/dL Critically low 7.0-18.0 [facility] Comment on above: Performed By: #### C MP, BNP, HSTROPN ####[facility] Kvhtfvzrql0271 [place] [address]Dr. Garima Pulliam Urea nitrogen/Creatinine [Mass ratio] 7.7 mg/mg Normal [facility] Comment on above: Performed By: #### C MP, BNP, HSTROPN ####[facility] Tfzakjmjzd8[address] [place] [address]Dr. Garima Pulliam PROTIMEon 01-12-2023 INR Coag (PPP) [Relative time] 1.16 {INR} Normal [facility] Comment on above: Performed By: #### P TT, PT ####[facility] Brrpkxiwar2[address] [place] [address]Dr. Garima Pulliam INR GUIDELINES SEE BELOW Normal [facility] Comment on above: Result Comment: WESLEY RED INR: 2.0 - 3.0 CONDITIONS NOT LISTED BELOW 2.5 - 3.5 FOR PROSTHETIC HEART VALVE REPLACEMENT 2.5 - 3.5 RECURRENT THROMBOSIS Performed By: #### P TT, PT ####[facility] [address]rugxajq[address] [place], [place] [address]Dr. Garima Pulliam PT Coag (PPP) [Time] 12.2 s Critically high 9.0-11.6 [facility] Comment on above: Performed By: #### P TT, PT ####[facility] Cpglcmbnce4919 [place] [address]Dr. Garima Pulliam PTTon 01-12-2023 aPTT Coag (Bld) [Time] 29.1 s Normal 22.3-36.2 [facility] Comment on above: Performed By: #### P TT, PT ####[facility] Eaylxaoalo[address] [place], [place] [address]Dr. Garima Pulliam TROPONIN, HIGH SENSITIVITYon 01-12-2023 HSTROP 10.3 pg/mL Normal 4.0-76.1 [facility] Comment on above: Result Comment: CUT- OFF POINTS HAVE BEEN ESTABLISHED BASED ON THE FOURTH UNIVERSAL DEFINITIONS OF MYOCARDIALINFARCTION. THE UPPER REFERENCE LIMIT (URL) OF TROPONIN, DEFINED THE 99TH PERCENTILE OFcTnI DISTRIBUTION IN A REFERENCE POPULATION, HAS BEEN CONFIRMED THE DECISION THRESHOLDFOR OR DIAGNOSIS. Performed By: #### H STROPN ####[facility] Ektvfrtevv3154 [place] [address]Dr. Garima Pulliam HSTROP 9.2 pg/mL Normal 4.0-76.1 [facility] Comment on above: Result Comment: CUT- OFF POINTS HAVE BEEN ESTABLISHED BASED ON THE FOURTH UNIVERSAL DEFINITIONS OF MYOCARDIALINFARCTION. THE UPPER REFERENCE LIMIT (URL) OF TROPONIN, DEFINED THE 99TH PERCENTILE OFcTnI DISTRIBUTION IN A REFERENCE POPULATION, HAS BEEN CONFIRMED THE DECISION THRESHOLDFOR OR DIAGNOSIS. Performed By: #### C MP, BNP, HSTROPN ####[facility] Sdrquxdyhg2867 [place] [address]Dr. Garima Pulliam XR CHEST 1 Von 01-12-2023 XR CHEST 1 V Normal [facility] XR CHEST 1 Von 01-01-2023 XR CHEST 1 V Normal [facility] CARDIAC NAHS 3-6on 3 CK [Catalytic activity/Vol] 196 U/L Normal 39-308 [facility] Comment on above: Performed By: #### C MREP ####[facility] Wcfryxnqvu4474 [place] [address]Dr. Garima Pulliam CK.MB [Mass/Vol] 7.41 ng/mL Critically high <=3.60 [facility] Comment on above: Performed By: #### C MREP ####[facility] Mxapcidhns2218 [place] [address]Dr. Garima Pulliam HSTROP 10.3 pg/mL Normal 4.0-76.1 [facility] Comment on above: Result Comment: CUT- OFF POINTS HAVE BEEN ESTABLISHED BASED ON THE FOURTH UNIVERSAL DEFINITIONS OF MYOCARDIALINFARCTION. THE UPPER REFERENCE LIMIT (URL) OF TROPONIN, DEFINED THE 99TH PERCENTILE OFcTnI DISTRIBUTION IN A REFERENCE POPULATION, HAS BEEN CONFIRMED THE DECISION THRESHOLDFOR OR DIAGNOSIS. Performed By: #### C MREP ####[facility] Oonusbuejj9079 [place] [id number]. Garima Pulliam XR CHEST 1 Von 12-26-2022 XR CHEST 1 V Normal [facility] BNPon 12-25-2022 Natriuretic peptide B (Bld) [Mass/Vol] 98.0 pg/mL Normal <=900.0 [facility] Comment on above: Performed By: #### B MARVIN FRENCH CMADM ####[facility] Xoxyhlfoqc7[address] [place] [address]Dr. Garima Pulliam CARDIAC NASH ADMITon 023 CK [Catalytic activity/Vol] 208 U/L Normal 39-308 [facility] Comment on above: Performed By: #### B MARVIN FRENCH CMADM ####[facility] Ksnwrasrvh3746 [place] [address]Dr. Garima Pulliam CK.MB [Mass/Vol] 7.63 ng/mL Critically high <=3.60 [facility] Comment on above: Performed By: #### B MARVIN FRENCH CMADM ####[facility] S[address]vstveeu[address] [place], [place] [address]Dr. Garima Pulliam HSTROP 8.8 pg/mL Normal 4.0-76.1 [facility] Comment on above: Result Comment: CUT- OFF POINTS HAVE BEEN ESTABLISHED BASED ON THE FOURTH UNIVERSAL DEFINITIONS OF MYOCARDIALINFARCTION. THE UPPER REFERENCE LIMIT (URL) OF TROPONIN, DEFINED THE 99TH PERCENTILE OFcTnI DISTRIBUTION IN A REFERENCE POPULATION, HAS BEEN CONFIRMED THE DECISION THRESHOLDFOR OR DIAGNOSIS. Performed By: #### B MARVIN FRENCH CMADM ####[facility] [address]vymoebb[address] [place], [place] [address]Dr. Garima Pulliam DORIS 83 ng/mL Normal 16-96 [facility] Comment on above: Performed By: #### B MARVIN FRENCH CMADM ####[facility] Przicvttgo[address] [place], [place] [address]Dr. Garima Pulliam CBC AUTO DIFFon 12-25-2022 BASO # 0.0 103/ul Normal 0.0-0.1 [facility] Comment on above: Performed By: #### C BC ####[facility] [address]cqorwuqjl[address] [place], [place] [address]Dr. Garima Pulliam Basophils/100 WBC (Bld) 0.0 % Critically low 0.2-2.0 [facility] Comment on above: Performed By: #### C BC ####[facility] Ltqrcbtsym7497 [place] [address]Dr. Garima Pulliam EO # 0.0 103/ul Normal 0.0-0.7 [facility] Comment on above: Performed By: #### C BC ####[facility] Hsxcoojkel6[address] [place], [place] [address]Dr. Garima Pulliam Eosinophils/100 WBC (Bld) 0.7 % Critically low 0.9-7.0 [facility] Comment on above: Performed By: #### C BC ####[facility] Qknehejljp[address] [place], [place] [address]Dr. Garima Pulliam Erythrocyte distribution width (RBC) [Ratio] 13.4 % Normal 11.0-15.0 [facility] Comment on above: Performed By: #### C BC ####[facility] Mypyeyeeib8[address] [place], [place] [address]Dr. Garima Pulliam Hematocrit (Bld) [Volume fraction] 42.9 % Normal 42.0-54.0 [facility] Comment on above: Performed By: #### C BC ####[facility] Bipaqvyblj[address] [place], [place] [address]Dr. Garima Pulliam Hemoglobin (Bld) [Mass/Vol] 14.4 g/dL Normal 14.0-18.0 [facility] Comment on above: Performed By: #### C BC ####[facility] Kpwjajcymd[address] [place], [place] [address]Dr. Garima Pulliam IG # 0.00 10e3/ul Normal 0.00-0.03 [facility] Comment on above: Performed By: #### C BC ####[facility] Iuqggmviqn[address] [place], [place] [address]Dr. Garima Pulliam IG % 0.0 % Normal 0.0-0.5 [facility] Comment on above: Performed By: #### C BC ####[facility] Upbijcezia[address] [place], [place] [address]Dr. Garima Pulliam LYMPH # 2.4 103/ul Normal 1.2-3.8 [facility] Comment on above: Performed By: #### C BC ####[facility] Myvhkaejhz0922 [place] [id number]. Chapisrenu Pulliam Lymphocytes/100 WBC (Bld) 29.2 % Normal 20.5-60.0 [facility] Comment on above: Performed By: #### C BC ####[facility] Kslbymizru0266 [place] [id number]. Garima Pulliam MANUAL DIFF REQ NO Normal [facility] Comment on above: Performed By: #### C BC ####[facility] Qjwfdlbdzw5615 [place] [id number]. Garima Pulliam MCH (RBC) [Entitic mass] 30.7 pg Normal 25.9-34.0 [facility] Comment on above: Performed By: #### C BC ####[facility] Aeomheapzf[address] [place], [place] [address]Dr. Garima Pulliam MCHC (RBC) [Mass/Vol] 33.6 g/dL Normal 29.9-35.2 [facility] Comment on above: Performed By: #### C BC ####[facility] Eygwffinmu[address] [place], [place] [address]Dr. Garima Pulliam MCV (RBC) [Entitic vol] 91.5 fL Normal 80.0-94.0 [facility] Comment on above: Performed By: #### C BC ####[facility] Riftbhemhf[address] [place], [place] [address]Dr. Garima Pulliam MONO # 0.0 103/ul Critically low 0.3-0.8 [facility] Comment on above: Performed By: #### C BC ####[facility] Bnttuckffc0052 [place] [address]Dr. Garima Pulliam Monocytes/100 WBC (Bld) 8.0 % Normal 1.7-12.0 [facility] Comment on above: Performed By: #### C BC ####[facility] Adrcdnrgrl[address] [place], [place] [address]Dr. Garima Pulliam NEUT # 5.1 103/ul Normal 1.4-6.5 [facility] Comment on above: Performed By: #### C BC ####[facility] Uegodgidxr4[address] [place], [place] [address]Gr. Garima Pulliam Neutrophils/100 WBC (Bld) 62.8 % Normal 43.0-75.0 [facility] Comment on above: Performed By: #### C BC ####[facility] Loocqtjsbp9161 [place], [place] [address]Nw. Garima Pulliam Platelet mean volume (Bld) [Entitic vol] 8.6 fL Critically low 9.5-13.5 [facility] Comment on above: Performed By: #### C BC ####[facility] Gqyyhkurkx7507 [place] [id number]. Garima Pulliam PLT 200 103/ul Normal 150-450 [facility] Comment on above: Performed By: #### C BC ####[facility] Yiwmufwsfw3500 [place] [id number]. Garima Pullima RBC 4.69 106/ul Critically low 4.70-6.10 [facility] Comment on above: Performed By: #### C BC ####[facility] Jfutxolkva1277 [place], [place] [address]Zw. Garima Pulliam WBC 8.2 103/ul Normal 4.0-11.0 [facility] Comment on above: Performed By: #### C BC ####[facility] Rjopqbuojc6109 [place], [place] [address]Tp. Garima Pulliam [facility]on SARS-CoV-2 (COVID-19) RNA MARIE+probe Ql (Unsp spec) Not detected Normal NOT DETECTED [facility] Comment on above: Result Comment: When [...] for this test is supported by the Want Ad Clerk of Health and Human Service's declaration that [...] be used). Performed By: #### C VDTBH ####[facility] Fcksvkzhmi[address] [place], [place] [address]Dr. Garima Pulliam INFLUENZA A AND B AGon 12-25 INFLUANEGH SEE BELOW Normal [facility] Comment on above: Result Comment: Nega tive for Flu A protein angiten. Infection due to Flu A cannot be ruled out. Flu A angiten in the sample may be below the detection limit of the test. Performed By: #### I NFLUAB ####[facility] Ihmmvamfik[address] [place], [place] [address]Dr. Garima Pulliam INFLUBNEGH SEE BELOW Normal [facility] Comment on above: Result Comment: Nega tive for Flu B protein antigen. Infection due to Flu B cannot be ruled out. Flu B antigen in the sample may be below the detection limit of the test. Performed By: #### I NFLUAB ####[facility] Kcurcwizto[address] [place], [place] [address]Dr. Garima Pulliam INFLUENZA A AG Negative Normal NEGATIVE SEE COMMENT [facility] Comment on above: Performed By: #### I NFLUAB ####[facility] [address]rypumpnup[address] [place], [place] [address]Dr. renu [facility] INFLUENZA B AG Negative Normal NEGATIVE SEE COMMENT [facility] Comment on above: Performed By: #### I NFLUAB ####[facility] Slcrffvbxk[address] [place], [place] [address]Dr. Garima Pulliam PROF CHEM 8 (BAS METB)on Anion gap [Moles/Vol] 11.1 mmol/L Normal Th [facility] Comment on above: Performed By: #### B PEARL STRINGER, BMP, CMADM ####[facility] [address]ufieqilzt[address] [place], [place] [address]Dr. Garima Pulliam Calcium [Mass/Vol] 8.5 mg/dL Normal 8.5-10.1 [facility] Comment on above: Performed By: #### B PEARL STRINGER, MARVIN, CMADM ####[facility] Bkoicwjvfy1653 [place] [id number]. Garima Pulliam Chloride [Moles/Vol] 106 mmol/L Normal 98-107 [facility] Comment on above: Performed By: #### B PEARL STRINGER, BMP, CMADM ####[facility] Iknutaduqk1075 [place] [address]Dr. Garima Pulliam CO2 [Moles/Vol] 27.4 mmol/L Normal 21.0-32.0 [facility] Comment on above: Performed By: #### B PEARL STRINGER, MARVIN, CMADM ####[facility] Pcmeeknxov2318 [place] [address]Dr. Garima Pulliam Creatinine [Mass/Vol] 0.65 mg/dL Critically low 0.70-1.30 [facility] Comment on above: Performed By: #### B PEARL STRINGER, MARVIN, CMADM ####[facility] Dljmoqgxna5801 [place] [address]Dr. Garima Pulliam EGFR-AF GERMAN >60 Normal >=[address] [facility] Comment on above: Performed By: #### B PEARL STRINGER, BMP, CMADM ####[facility] Ppunjvegcj2738 [place] [address]Dr. Garima Pulliam EGFR-NON AF GERMAN >60 Normal >=60 [facility] Comment on above: Performed By: #### B PEARL STRINGER, BMP, CMADM ####[facility] Rtuheqjsfw8305 [place] [address]Dr. Garima Pulliam Glucose [Mass/Vol] 140 mg/dL Critically high 74-106 [facility] Comment on above: Performed By: #### B PEARL STRINGER, BMP, CMADM ####[facility] Einrptgloq3975 [place] [address]Dr. Garima Pulliam Potassium [Moles/Vol] 3.5 mmol/L Normal 3.5-5.1 [facility] Comment on above: Performed By: #### B PEARL STRINGER, BMP, CMADM ####[facility] Hdirtvocvc8693 [place] [address]Dr. Garima Pulliam Sodium [Moles/Vol] 141 mmol/L Normal 136-145 [facility] Comment on above: Performed By: #### B PEARL STRINGER, BMP, CMADM ####[facility] Slapaggmqd5882 [place] [address]Dr. Garima Pulliam Urea nitrogen [Mass/Vol] 8.0 mg/dL Normal 7.0-18.0 [facility] Comment on above: Performed By: #### B PEARL STRINGER, BMP, CMADM ####[facility] Jecvporacs[address] [place] [address]Dr. Garima Pulliam Urea nitrogen/Creatinine [Mass ratio] 12.3 mg/mg Normal [facility] Comment on above: Performed By: #### B PEARL STRINGER, BMP, CMADM ####[facility] [address]pxyefm[address] [place], [place] [address]Dr. Garima Pulliam CARDIAC NASH ADMITon 023 CK [Catalytic activity/Vol] 165 U/L Normal 39-308 [facility] Comment on above: Performed By: #### B DAVID, CMADM ####[facility] [address]onjgarq[address] [place], [place] [address]Dr. Garima Pulliam CK.MB [Mass/Vol] 6.48 ng/mL Critically high <=3.60 [facility] Comment on above: Performed By: #### B MP, CMADM ####[facility] [address]whbjdsem[address] [place], [place] [address]Dr. Garima Pulliam HSTROP 11.7 pg/mL Normal 4.0-76.1 [facility] Comment on above: Result Comment: CUT- OFF POINTS HAVE BEEN ESTABLISHED BASED ON THE FOURTH UNIVERSAL DEFINITIONS OF MYOCARDIALINFARCTION. THE UPPER REFERENCE LIMIT (URL) OF TROPONIN, DEFINED THE 99TH PERCENTILE OFcTnI DISTRIBUTION IN A REFERENCE POPULATION, HAS BEEN CONFIRMED THE DECISION THRESHOLDFOR OR DIAGNOSIS. Performed By: #### B MP, CMADM ####[facility] [address]wybkg[address] [place], [place] [address]Dr. Garima Pulliam DORIS 83 ng/mL Normal 16-96 [facility] Comment on above: Performed By: #### B MP, CMADM ####[facility] Zhqfnhkrag3539 [place] [address]Dr. Garima Pulliam CBC AUTO DIFFon 12-10-2022 BASO # 0.0 103/ul Normal 0.0-0.1 [facility] Comment on above: Performed By: #### C BC ####[facility] [address]vstj[address] [place], [place] [address]Dr. Garima Heraclio Basophils/100 WBC (Bld) 0.3 % Normal 0.2-2.0 [facility] Comment on above: Performed By: #### C BC ####[facility] [address]kfunlwh[address] [place], [place] [address]Dr. Garima Pulliam EO # 0.1 103/ul Normal 0.0-0.7 [facility] Comment on above: Performed By: #### C BC ####[facility] [address]xmqlqy[address] [place], [place] [address]Dr. Garima Pulliam Eosinophils/100 WBC (Bld) 0.4 % Critically low 0.9-7.0 [facility] Comment on above: Performed By: #### C BC ####[facility] Mtwcqzexfk[address] [place], [place] [address]Dr. Garima Pulliam Erythrocyte distribution width (RBC) [Ratio] 13.2 % Normal 11.0-15.0 [facility] Comment on above: Performed By: #### C BC ####[facility] Yfpptgvrqi[address] [place], [place] [address]Dr. Garima Pulliam Hematocrit (Bld) [Volume fraction] 42.4 % Normal 42.0-54.0 [facility] Comment on above: Performed By: #### C BC ####[facility] Wtoscfhyuc[address] [place], [place] [address]Dr. Garima Pulliam Hemoglobin (Bld) [Mass/Vol] 14.4 g/dL Normal 14.0-18.0 [facility] Comment on above: Performed By: #### C BC ####[facility] Tttimmlwff6[address] [place] [id number]. Garima Heraclio IG # 0.05 10e3/ul Critically high 0.00-0.[address] [facility] Comment on above: Performed By: #### C BC ####[facility] Wwxacashbo70[address] [place] [address]Dr. Garima Heraclio IG % 0.4 % Normal 0.0-0.5 [facility] Comment on above: Performed By: #### C BC ####[facility] Zzqrjkfwvc[address] [place], [place] [address]Dr. Garima Pulliam LYMPH # 0.8 103/ul Critically low 1.2-3.8 The [facility] Comment on above: Performed By: #### C BC ####[facility] Bzlfwhohqe[address] [place], [place] [address]Dr. Chapisrenu Pulliam Lymphocytes/100 WBC (Bld) 6.5 % Critically low 20.5-60.0 [facility] Comment on above: Performed By: #### C BC ####[facility] Bgdvrfoepa[address] [place], [place] [address]Dr. Chapisrenu Pulliam MANUAL DIFF REQ NO Normal The [facility] Comment on above: Performed By: #### C BC ####[facility] Thjjgoyhwl9[address] [place], [place] [address]DrAdalberto Garima Pulliam MCH (RBC) [Entitic mass] 30.5 pg Normal 25.9-34.0 [facility] Comment on above: Performed By: #### C BC ####[facility] Tubftvkguu[address] [place], [place] [address]DrAdalberto Garima Heraclio MCHC (RBC) [Mass/Vol] 34.0 g/dL Normal 29.9-35.2 [facility] Comment on above: Performed By: #### C BC ####[facility] Ivcfpiwtte[address] [place], [place] [address]DrAdalberto Garima Heraclio MCV (RBC) [Entitic vol] 89.8 fL Normal 80.0-94.0 [facility] Comment on above: Performed By: #### C BC ####[facility] Xbunrwrdux[address] [place], [place] [address]Dr. Garima Pulliam MONO # 0.2 103/ul Critically low 0.3-0.8 The [facility] Comment on above: Performed By: #### C BC ####[facility] Wiwhunvxtv9490 [place] [id number]. Garima Pulliam Monocytes/100 WBC (Bld) 2.0 % Normal 1.7-12.0 [facility] Comment on above: Performed By: #### C BC ####[facility] Yygubsyfpr7798 [place] [address]Dr. Chapisrenu Heraclio NEUT # 10.5 103/ul Critically high 1.4-6.5 The [facility] Comment on above: Performed By: #### C BC ####[facility] Rgprtcyync1437 [place] [address]Dr. Garima Pulliam Neutrophils/100 WBC (Bld) 90.4 % Critically high 43.0-75.0 [facility] Comment on above: Performed By: #### C BC ####[facility] Vgevdjdccz8001 [place] [address]Dr. Garima Pulliam Platelet mean volume (Bld) [Entitic vol] 9.4 fL Critically low 9.5-13.5 [facility] Comment on above: Performed By: #### C BC ####[facility] Caxzxtavdm6779 [place] [address]Dr. Garima Pulliam PLT 198 103/ul Normal 150-450 [facility] Comment on above: Performed By: #### C BC ####[facility] Dkwovsecik9499 [place] [address]Dr. Garima Pulliam RBC 4.72 106/ul Normal 4.70-6.10 [facility] Comment on above: Performed By: #### C BC ####[facility] Nifexbjlgf7253 [place] [id number]. Garima Pulliam WBC 11.6 103/ul Critically high 4.0-11.0 The [facility] Comment on above: Performed By: #### C BC ####[facility] Dhltwgfgus8668 [place] [address]DrAdalberto Pulliam PROF CHEM 8 (BAS METB)on Anion gap [Moles/Vol] 11.3 mmol/L Normal Th [facility] Comment on above: Performed By: #### B NANCY HERNANDEZ ####[facility] Oxkmisjpae39[address] [place] [address]Dr. Garima Pulliam Calcium [Mass/Vol] 8.9 mg/dL Normal 8.5-10.1 [facility] Comment on above: Performed By: #### B NANCY HERNANDEZ ####[facility] Ywhglotqcv6595 [place] [address]Dr. Garima Pulliam Chloride [Moles/Vol] 103 mmol/L Normal 98-107 [facility] Comment on above: Performed By: #### B NANCY HERNANDEZ ####[facility] Ubfdgzyouz[address] [place], [place] [address]Dr. Garima Pulliam CO2 [Moles/Vol] 28.2 mmol/L Normal 21.0-32.[address] [facility] Comment on above: Performed By: #### NANCY Larkin MP ####[facility] Grmanygsdy4280 [place] [address]Dr. Chapisrenu Pulliam Creatinine [Mass/Vol] 0.60 mg/dL Critically low 0.70-1.30 [facility] Comment on above: Performed By: #### NANCY Larkin MP ####[facility] Mncsnqrnnh7772 [place] [address]Dr. Garima Pulliam EGFR-AF GERMAN >60 Normal >=[address] [facility] Comment on above: Performed By: #### NANCY Larkin MP ####[facility] Cnqsxuztwd1392 [place] [address]Dr. Garima Pulliam EGFR-NON AF GERMAN >60 Normal >=60 [facility] Comment on above: Performed By: #### NANCY Larkin MP ####[facility] Tpbybehmny[address] [place], [place] [address]Dr. Garima Pulliam Glucose [Mass/Vol] 166 mg/dL Critically high 74-106 [facility] Comment on above: Performed By: #### B MP, CMADM ####[facility] Ejdxbenpke3214 [place] [address]Dr. Garima Pulliam Potassium [Moles/Vol] 3.5 mmol/L Normal 3.5-5.1 [facility] Comment on above: Performed By: #### B MP, CMADM ####[facility] Rznjnzwpir4790 [place] [address]Dr. Garima Pulliam Sodium [Moles/Vol] 139 mmol/L Normal 136-145 [facility] Comment on above: Performed By: #### B DAVID, CMADM ####[facility] Oyaslojguy4519 [place] [address]Dr. Garima Heraclio Urea nitrogen [Mass/Vol] 9.0 mg/dL Normal 7.0-18.0 [facility] Comment on above: Performed By: #### B DAVID, NANCY ####[facility] Vpopiuvbol[address] [place], [place] [address]Dr. Garima Heraclio Urea nitrogen/Creatinine [Mass ratio] 15.0 mg/mg Normal [facility] Comment on above: Performed By: #### B DAVID, CMAANA ROSA ####[facility] Azgmchgdkq9[address] [place], [place] [address]Dr. Garima Pulliam XR CHEST 1 Von 12-10-2022 XR CHEST 1 V Normal [facility] BNPon 11-27-2022 Natriuretic peptide B (Bld) [Mass/Vol] 95.0 pg/mL Normal <=900.0 [facility] Comment on above: Performed By: #### C MP, HSTROPN, BNP ####[facility] Lntflpraqr[address] [place], [place] [address]Dr. Garima Heraclio CBC AUTO DIFFon 11-27-2022 BASO # 0.0 103/ul Normal 0.0-0.1 [facility] Comment on above: Performed By: #### C BC ####[facility] Yhhfflrwet[address] [place], [place] [address]Dr. Garima Heraclio Basophils/100 WBC (Bld) 0.2 % Normal 0.2-2.0 [facility] Comment on above: Performed By: #### C BC ####[facility] Wqznmffwgq1673 [place] [id number]. Garima Pulliam EO # 0.2 103/ul Normal 0.0-0.7 [facility] Comment on above: Performed By: #### C BC ####[facility] Xmzqljsxwy0370 [place] [id number]. Garima Pulliam Eosinophils/100 WBC (Bld) 2.0 % Normal 0.9-7.0 [facility] Comment on above: Performed By: #### C BC ####[facility] Duoocygkvg9[address] [place], [place] [address]Dr. Garima Pulliam Erythrocyte distribution width (RBC) [Ratio] 13.2 % Normal 11.0-15.0 [facility] Comment on above: Performed By: #### C BC ####[facility] Wdwbsxcjje209[address] [place], [place] [address]Dr. Garima Pulliam Hematocrit (Bld) [Volume fraction] 42.4 % Normal 42.0-54.0 [facility] Comment on above: Performed By: #### C BC ####[facility] Bdccafailk[address] [place], [place] [address]Dr. Garima Pulliam Hemoglobin (Bld) [Mass/Vol] 14.4 g/dL Normal 14.0-18.0 [facility] Comment on above: Performed By: #### C BC ####[facility] Onbfnhldeg[address] [place], [place] [address]Dr. Garima Pulliam IG # 0.04 10e3/ul Critically high 0.00-0.[address] [facility] Comment on above: Performed By: #### C BC ####[facility] H[address]vqzxhphl[address] [place], [place] [address]Dr. Garima Pulliam IG % 0.4 % Normal 0.0-0.5 [facility] Comment on above: Performed By: #### C BC ####[facility] Nouozqhqlq[address] [place], [place] [address]Dr. Garima Pulliam LYMPH # 2.2 103/ul Normal 1.2-3.8 [facility] Comment on above: Performed By: #### C BC ####[facility] Sipwtugrrd4825 [place] [id number]. Garima Pulliam Lymphocytes/100 WBC (Bld) 21.5 % Normal 20.5-60.0 [facility] Comment on above: Performed By: #### C BC ####[facility] Wwkhhqkmck9576 [place] [id number]. Garima Heraclio MANUAL DIFF REQ NO Normal [facility] Comment on above: Performed By: #### C BC ####[facility] Llfdhsvdkw2436 [place] [id number]. Garima Heraclio MCH (RBC) [Entitic mass] 30.4 pg Normal 25.9-34.0 [facility] Comment on above: Performed By: #### C BC ####[facility] Bejecvxjhl4934 [place] [address]Dr. Garima Heraclio MCHC (RBC) [Mass/Vol] 34.0 g/dL Normal 29.9-35.2 [facility] Comment on above: Performed By: #### C BC ####[facility] Wvgzexoztt2040 [place] [id number]. Garima Pulliam MCV (RBC) [Entitic vol] 89.6 fL Normal 80.0-94.0 [facility] Comment on above: Performed By: #### C BC ####[facility] Frbxuodbqz2094 [place] [id number]. Garima Pulliam MONO # 0.8 103/ul Normal 0.3-0.8 [facility] Comment on above: Performed By: #### C BC ####[facility] Oheiddtbaz7070 [place] [id number]. Chapisrenu Pulliam Monocytes/100 WBC (Bld) 7.7 % Normal 1.7-12.0 [facility] Comment on above: Performed By: #### C BC ####[facility] Jdfujubhip[address] [place], [place] [address]Dr. Garima Pulliam NEUT # 7.0 103/ul Critically high 1.4-6.[address] [facility] Comment on above: Performed By: #### C BC ####[facility] Nbqbihzeug9454 [place] [id number]. Garima Pulliam Neutrophils/100 WBC (Bld) 68.2 % Normal 43.0-75.0 [facility] Comment on above: Performed By: #### C BC ####[facility] Lzoycbatsr6614 [place] [id number]. Chapisrenu Pulliam Platelet mean volume (Bld) [Entitic vol] 8.9 fL Critically low 9.5-13.5 [facility] Comment on above: Performed By: #### C BC ####[facility] Bgiqpehfvg6275 [place] [address]Dr. Garima Pulliam PLT 222 103/ul Normal 150-450 [facility] Comment on above: Performed By: #### C BC ####[facility] Bhwdgkksaa2034 [place] [address]Dr. Garima Pulliam RBC 4.73 106/ul Normal 4.70-6.10 [facility] Comment on above: Performed By: #### C BC ####[facility] Vtzdiithli6619 [place] [address]Dr. Garima Pulliam WBC 10.3 103/ul Normal 4.0-11.0 [facility] Comment on above: Performed By: #### C BC ####[facility] Xegxqnhhgn9361 [place] [address]Dr. Garima Pulliam PROF 14(COMP METB)on 023 Albumin [Mass/Vol] 3.7 g/dL Normal 3.4-5.0 [facility] Comment on above: Performed By: #### C MP, HSTROPN, BNP ####[facility] Ijwmtrqptv1886 [place] [address]Dr. Chapisrenu Pulliam Albumin/Globulin [Mass ratio] 1.5 {ratio} Normal [facility] Comment on above: Performed By: #### C MP, HSTROPN, BNP ####[facility] Cyojydbfvn3356 [place] [address]Dr. Garima Pulliam ALP [Catalytic activity/Vol] 79 U/L Normal 46-116 [facility] Comment on above: Performed By: #### C MP, HSTROPN, BNP ####[facility] Ivbvvuektt6251 [place] [address]Dr. Garima Pulliam ALT [Catalytic activity/Vol] 32 U/L Normal 16-63 [facility] Comment on above: Performed By: #### C MP, HSTROPN, BNP ####[facility] Yazrgktfmj1963 [place] [address]Dr. Garima Pulliam Anion gap [Moles/Vol] 9.5 mmol/L Normal [facility] Comment on above: Performed By: #### C MP, HSTROPN, BNP ####[facility] X[address]zqvoodn[address] [place], [place] [address]Dr. Garima Pulliam AST [Catalytic activity/Vol] 25 U/L Normal 15-37 [facility] Comment on above: Performed By: #### C MP, HSTROPN, BNP ####[facility] Uknhbeyjxk7[address] [place], [place] [address]Dr. Chapsilan Pulliam Bilirubin [Mass/Vol] 0.4 mg/dL Normal 0.2-1.0 [facility] Comment on above: Performed By: #### C MP, HSTROPN, BNP ####[facility] Ixutnnurnn[address] [place], [place] [address]Dr. Garima Pulliam Calcium [Mass/Vol] 8.9 mg/dL Normal 8.5-10.1 [facility] Comment on above: Performed By: #### C MP, HSTROPN, BNP ####[facility] Xonvqemnqb[address] [place], [place] [address]Dr. Chapislan Pulliam Chloride [Moles/Vol] 103 mmol/L Normal 98-107 [facility] Comment on above: Performed By: #### C MP, HSTROPN, BNP ####[facility] Qnxmhjrrwj83[address] [place], [place] [address]Dr. Yilan Pulliam CO2 [Moles/Vol] 28.6 mmol/L Normal 21.0-32.0 [facility] Comment on above: Performed By: #### C MP, HSTROPN, BNP ####[facility] Bmdfrpnnme3913 [place] [address]Dr. Garima Pulliam Creatinine [Mass/Vol] 0.72 mg/dL Normal 0.70-1.30 [facility] Comment on above: Performed By: #### C MP, HSTROPN, BNP ####[facility] Inivilgcem4481 [place] [address]Dr. Garima Pulliam EGFR-AF GERMAN >60 Normal >=[address] [facility] Comment on above: Performed By: #### C MP, HSTROPN, BNP ####[facility] Qghgumumyk8864 [place] [address]Dr. Garima Pulliam EGFR-NON AF GERMAN >60 Normal >=60 [facility] Comment on above: Performed By: #### C MP, HSTROPN, BNP ####[facility] Fgzetblzeh3981 [place] [address]Dr. Garima Pulliam Globulin (S) [Mass/Vol] 2.5 g/dL Normal [facility] Comment on above: Performed By: #### C MP, HSTROPN, BNP ####[facility] Nldennvytg4[address] [place], [place] [address]Dr. Garima Pulliam Glucose [Mass/Vol] 114 mg/dL Critically high 74-106 T [facility] Comment on above: Performed By: #### C MP, HSTROPN, BNP ####[facility] Zflubbsktg7[address] [place], [place] [address]Dr. Garima Pulliam Potassium [Moles/Vol] 4.1 mmol/L Normal 3.5-5.1 [facility] Comment on above: Performed By: #### C MP, HSTROPN, BNP ####[facility] Hhjjhipcvw[address] [place], [place] [address]Dr. Garima Pulliam Protein [Mass/Vol] 6.2 g/dL Critically low 6.4-8.2 Th [facility] Comment on above: Performed By: #### C MP, HSTROPN, BNP ####[facility] [address]aapevvyvd[address] [place], [place] [address]Dr. Yilan Pulliam Sodium [Moles/Vol] 137 mmol/L Normal 136-145 [facility] Comment on above: Performed By: #### C MP, HSTROPN, BNP ####[facility] Kafdjlalba4686 [place] [address]Dr. Garima Pulliam Urea nitrogen [Mass/Vol] 13.0 mg/dL Normal 7.0-18.0 [facility] Comment on above: Performed By: #### C MP, HSTROPN, BNP ####[facility] Qgixpleqwa1646 [place] [address]Dr. Garima Pulliam Urea nitrogen/Creatinine [Mass ratio] 18.1 mg/mg Normal [facility] Comment on above: Performed By: #### C MP, HSTROPN, BNP ####[facility] Cludcdtvfq[address] [place], [place] [address]Dr. Garima Pulliam TROPONIN, HIGH SENSITIVITYon 11-27-2022 HSTROP 11.8 pg/mL Normal 4.0-76.1 [facility] Comment on above: Result Comment: CUT- OFF POINTS HAVE BEEN ESTABLISHED BASED ON THE FOURTH UNIVERSAL DEFINITIONS OF MYOCARDIALINFARCTION. THE UPPER REFERENCE LIMIT (URL) OF TROPONIN, DEFINED THE 99TH PERCENTILE OFcTnI DISTRIBUTION IN A REFERENCE POPULATION, HAS BEEN CONFIRMED THE DECISION THRESHOLDFOR OR DIAGNOSIS. Performed By: #### C MP, HSTROPN, BNP ####[facility] T[address]tavdtz[address] [place], [place] [address]Dr. Garima Pulliam XR CHEST 1 Von 11-27-2022 XR CHEST 1 V Normal [facility] BNPon 11-20-2022 Natriuretic peptide B (Bld) [Mass/Vol] 73.0 pg/mL Normal <=900.0 [facility] Comment on above: Performed By: #### B MP, HSTROPN, BNP ####[facility] M[address]jlcrjwdv[address] [place], [place] [address]Dr. Garima Pulliam CBC AUTO DIFFon 11-20-2022 BASO # 0.0 103/ul Normal 0.0-0.1 [facility] Comment on above: Performed By: #### C BC ####[facility] Rmwprsyzqy0879 [place] [id number]. Garima Pulliam Basophils/100 WBC (Bld) 0.3 % Normal 0.2-2.0 [facility] Comment on above: Performed By: #### C BC ####[facility] Esxjfruwoc6119 [place] [id number]. Garima Pulliam EO # 0.2 103/ul Normal 0.0-0.7 [facility] Comment on above: Performed By: #### C BC ####[facility] Wzbmtktyfr4090 [place] [address]Dr. Garima Pulliam Eosinophils/100 WBC (Bld) 2.1 % Normal 0.9-7.0 [facility] Comment on above: Performed By: #### C BC ####[facility] Rpbvmzlema[address] [place], [place] [address]Dr. Garima Pulliam Erythrocyte distribution width (RBC) [Ratio] 13.2 % Normal 11.0-15.0 [facility] Comment on above: Performed By: #### C BC ####[facility] Fheaqtnbti[address] [place], [place] [address]Dr. Garima Pulliam Hematocrit (Bld) [Volume fraction] 43.4 % Normal 42.0-54.0 [facility] Comment on above: Performed By: #### C BC ####[facility] J[address]qcvzl[address] [place], [place] [address]Dr. Garima Pulliam Hemoglobin (Bld) [Mass/Vol] 14.6 g/dL Normal 14.0-18.0 [facility] Comment on above: Performed By: #### C BC ####[facility] Xkhvpiinxy6903 [place] [id number]. Garima Pulliam IG # 0.02 10e3/ul Normal 0.00-0.03 [facility] Comment on above: Performed By: #### C BC ####[facility] Fexejlzvuv2235 [place] [address]Dr. Garima Pulliam IG % 0.2 % Normal 0.0-0.5 [facility] Comment on above: Performed By: #### C BC ####[facility] Xjbasqbkkf8543 [place] [id number]. Garima Heraclio LYMPH # 2.1 103/ul Normal 1.2-3.8 [facility] Comment on above: Performed By: #### C BC ####[facility] Xjsqunjbqe2241 [place] [id number]. Garima Heraclio Lymphocytes/100 WBC (Bld) 19.2 % Critically low 20.5-60.0 [facility] Comment on above: Performed By: #### C BC ####[facility] Jftxslofiy5761 [place] [id number]. Chapisrenu Pulliam MANUAL DIFF REQ NO Normal [facility] Comment on above: Performed By: #### C BC ####[facility] Ygcpigxmet3537 [place] [id number]. Garima Heraclio MCH (RBC) [Entitic mass] 30.4 pg Normal 25.9-34.0 [facility] Comment on above: Performed By: #### C BC ####[facility] Oogdxeqcnx2575 [place] [address]Dr. Garima Pulliam MCHC (RBC) [Mass/Vol] 33.6 g/dL Normal 29.9-35.2 [facility] Comment on above: Performed By: #### C BC ####[facility] Gqlpcdbrgr4505 [place] [id number]. Garima Heraclio MCV (RBC) [Entitic vol] 90.4 fL Normal 80.0-94.0 [facility] Comment on above: Performed By: #### C BC ####[facility] Xlztfmptet4409 [place] [id number]. Garima Heraclio MONO # 0.6 103/ul Normal 0.3-0.8 [facility] Comment on above: Performed By: #### C BC ####[facility] Wstufjuapy6913 [place] [address]Dr. Garima Heraclio Monocytes/100 WBC (Bld) 5.8 % Normal 1.7-12.0 [facility] Comment on above: Performed By: #### C BC ####[facility] Uquqcpxtly8[address] [place], [place] [address]Jf. Garima Pulliam NEUT # 7.8 103/ul Critically high 1.4-6.[address] [facility] Comment on above: Performed By: #### C BC ####[facility] Npksmlubqq7835 [place] [id number]. Garima Pulliam Neutrophils/100 WBC (Bld) 72.4 % Normal 43.0-75.0 [facility] Comment on above: Performed By: #### C BC ####[facility] Vzdwfgvccs0094 [place] [id number]. Garima Pulliam Platelet mean volume (Bld) [Entitic vol] 8.7 fL Critically low 9.5-13.5 [facility] Comment on above: Performed By: #### C BC ####[facility] Gqvjoeewga3244 [place] [id number]. Garima Pulliam PLT 184 103/ul Normal 150-450 [facility] Comment on above: Performed By: #### C BC ####[facility] Inkawrqxav9669 [place], [place] [address]Iw. Garima Pulliam RBC 4.80 106/ul Normal 4.70-6.10 [facility] Comment on above: Performed By: #### C BC ####[facility] Qnmjxvoodo8264 [place] [id number]. Garima Pulliam WBC 10.8 103/ul Normal 4.0-11.0 [facility] Comment on above: Performed By: #### C BC ####[facility] Qnyxtsivbf9625 [place] [id number]. Garima Pulliam [facility]-24 SARS-CoV-2 (COVID-19) RNA MARIE+probe Ql (Unsp spec) Not detected Normal NOT DETECTED [facility] Comment on above: Result Comment: When [...] for this test is supported by the [place] of Health and Human Service's declaration that [...] be used). Performed By: #### C VDTBH ####[facility] Irsusyrkdi[address] [place], [place] [address]Dr. Garima Pulliam INFLUENZA A AND B AGon 11-20 INFLUBANNER SEE BELOW Normal [facility] Comment on above: Result Comment: Nega tive for Flu A protein angiten. Infection due to Flu A cannot be ruled out. Flu A angiten in the sample may be below the detection limit of the test. Performed By: #### I NFLUAB ####[facility] [address]fizmsstu[address] [place], [place] [address]Dr. Garima Pulliam INFLUBNEGH SEE BELOW Normal [facility] Comment on above: Result Comment: Nega tive for Flu B protein antigen. Infection due to Flu B cannot be ruled out. Flu B antigen in the sample may be below the detection limit of the test. Performed By: #### I NFLUAB ####[facility] E[address]oxvdvkd[address] [place], [place] [address]Dr. Garima Pulliam INFLUENZA A AG Negative Normal NEGATIVE SEE COMMENT [facility] Comment on above: Performed By: #### I NFLUAB ####[facility] Rnzqqfhnzv[address] [place], [place] [address]Dr. Garima [facility] INFLUENZA B AG Negative Normal NEGATIVE SEE COMMENT [facility] Comment on above: Performed By: #### I NFLUAB ####[facility] Dnbxfeimdx[address] [place], [place] [address]Dr. Garima Pulliam PROF CHEM 8 (BAS METB)on Anion gap [Moles/Vol] 8.2 mmol/L Normal [facility] Comment on above: Performed By: #### B MP, HSTROPN, BNP ####[facility] Ocfelgjyug90[address] [place] [address]Dr. Garima Pulliam Calcium [Mass/Vol] 8.7 mg/dL Normal 8.5-10.1 [facility] Comment on above: Performed By: #### B MP, HSTROPN, BNP ####[facility] Kiazdstjzk6211 [place] [address]Dr. Garima Pulliam Chloride [Moles/Vol] 103 mmol/L Normal 98-107 [facility] Comment on above: Performed By: #### B MP, HSTROPN, BNP ####[facility] [address]rtnowg[address] [place], [place] [address]Dr. Garima Pulliam CO2 [Moles/Vol] 29.4 mmol/L Normal 21.0-32.0 [facility] Comment on above: Performed By: #### B MP, HSTROPN, BNP ####[facility] [address]ikdcxrupn[address] [place], [place] [address]Dr. Garima Pulliam Creatinine [Mass/Vol] 0.69 mg/dL Critically low 0.70-1.30 [facility] Comment on above: Performed By: #### B MP, HSTROPN, BNP ####[facility] Eacbvkwdag2282 [place] [address]Dr. Garima Pulliam EGFR-AF GERMAN >60 Normal >=60 [facility] Comment on above: Performed By: #### B MP, HSTROPN, BNP ####[facility] [address]iwdpjesso[address] [place], [place] [address]Dr. Garima Pulliam EGFR-NON AF GERMAN >60 Normal >=60 [facility] Comment on above: Performed By: #### B MP, HSTROPN, BNP ####[facility] Y[address]vrvack[address] [place] [address]Dr. Garima Pulliam Glucose [Mass/Vol] 209 mg/dL Critically high 74-106 T [facility] Comment on above: Performed By: #### B MP, HSTROPN, BNP ####[facility] Igiuvtvwab[address] [place] [address]Dr. Garima Pulliam Potassium [Moles/Vol] 3.6 mmol/L Normal 3.5-5.1 [facility] Comment on above: Performed By: #### B MP, HSTROPN, BNP ####[facility] Jyojgbbjzd[address] [place] [address]Dr. Garima Pulliam Sodium [Moles/Vol] 137 mmol/L Normal 136-145 [facility] Comment on above: Performed By: #### B MP, HSTROPN, BNP ####[facility] Xhordnqggj[address] [place] [address]Dr. Garima Pulliam Urea nitrogen [Mass/Vol] 11.0 mg/dL Normal 7.0-18.0 [facility] Comment on above: Performed By: #### B MP, HSTROPN, BNP ####[facility] Cslrtnusim[address] [place] [address]Dr. Garima Pulliam Urea nitrogen/Creatinine [Mass ratio] 15.9 mg/mg Normal [facility] Comment on above: Performed By: #### B MP, HSTROPN, BNP ####[facility] Gexlpdnukm[address] [place] [address]Dr. Garima Pulliam TROPONIN, HIGH SENSITIVITYon 11-20-2022 HSTROP 8.7 pg/mL Normal 4.0-76.1 [facility] Comment on above: Result Comment: CUT- OFF POINTS HAVE BEEN ESTABLISHED BASED ON THE FOURTH UNIVERSAL DEFINITIONS OF MYOCARDIALINFARCTION. THE UPPER REFERENCE LIMIT (URL) OF TROPONIN, DEFINED THE 99TH PERCENTILE OFcTnI DISTRIBUTION IN A REFERENCE POPULATION, HAS BEEN CONFIRMED THE DECISION THRESHOLDFOR OR DIAGNOSIS. Performed By: #### B MP, HSTROPN, BNP ####[facility] [address]ebziuwjy[address] [place] [address]Dr. Garima Pulliam XR CHEST 1 Von 11-20-2022 XR CHEST 1 V Normal [facility] XR CHEST 1 Von 10-02-2022 XR CHEST 1 V Normal [facility] BNPon 09-29-2022 Natriuretic peptide B (Bld) [Mass/Vol] 107.0 pg/mL Normal <=900.0 [facility] Comment on above: Performed By: #### C MP, BNP, CMADM ####[facility] Xvodfovjls[address] [place] [address]Dr. Garima Pulliam CARDIAC NASH ADMITon 022 CK [Catalytic activity/Vol] 190 U/L Normal 39-308 [facility] Comment on above: Performed By: #### C MP, BNP, CMADM ####[facility] Ridmrbvype[address] [place] [address]Dr. Garima Heraclio CK.MB [Mass/Vol] 11.11 ng/mL Critically high <=3.60 Th [facility] Comment on above: Performed By: #### C MP, BNP, CMADM ####[facility] Bhfzldlvfw[address] [place] [address]Dr. Garima Pulliam HSTROP 11.8 pg/mL Normal 4.0-76.1 [facility] Comment on above: Result Comment: CUT- OFF POINTS HAVE BEEN ESTABLISHED BASED ON THE FOURTH UNIVERSAL DEFINITIONS OF MYOCARDIALINFARCTION. THE UPPER REFERENCE LIMIT (URL) OF TROPONIN, DEFINED THE 99TH PERCENTILE OFcTnI DISTRIBUTION IN A REFERENCE POPULATION, HAS BEEN CONFIRMED THE DECISION THRESHOLDFOR OR DIAGNOSIS. Performed By: #### C MP, BNP, CMADM ####[facility] Lbrtlphual[address] [place] [address]Dr. Garima Pulliam DORIS 133 ng/mL Critically high 16-[address] [facility] Comment on above: Performed By: #### C MP, BNP, CMADM ####[facility] Sqmeuidulv[address] [place] [address]Dr. Garima Heraclio CBC AUTO DIFFon 09-29-2022 BASO # 0.0 103/ul Normal 0.0-0.1 [facility] Comment on above: Performed By: #### C BC ####[facility] Heqnuzjccv[address] [place] [address]Dr. Garima Heraclio Basophils/100 WBC (Bld) 0.2 % Normal 0.2-2.0 [facility] Comment on above: Performed By: #### C BC ####[facility] Ougeagyteu[address] [place] [id number]. Garima Pulliam EO # 0.1 103/ul Normal 0.0-0.7 [facility] Comment on above: Performed By: #### C BC ####[facility] Dmwwaabqno5424 [place] [id number]. Garima Pulliam Eosinophils/100 WBC (Bld) 1.4 % Normal 0.9-7.0 [facility] Comment on above: Performed By: #### C BC ####[facility] [address]jj[address]yotjy[address] [place], [place] [address]Dr. Garima Pulliam Erythrocyte distribution width (RBC) [Ratio] 13.7 % Normal 11.0-15.0 [facility] Comment on above: Performed By: #### C BC ####[facility] [address]ubtbqwem[address] [place], [place] [address]Dr. Garima Pulliam Hematocrit (Bld) [Volume fraction] 45.4 % Normal 42.0-54.0 [facility] Comment on above: Performed By: #### C BC ####[facility] Dlpurlgsgn[address] [place], [place] [address]Dr. Garima Pulliam Hemoglobin (Bld) [Mass/Vol] 14.8 g/dL Normal 14.0-18.0 [facility] Comment on above: Performed By: #### C BC ####[facility] [address]uf[address]kpxrdq[address] [place], [place] [address]Dr. Garima Pulliam IG # 0.04 10e3/ul Critically high 0.00-0.03 [facility] Comment on above: Performed By: #### C BC ####[facility] Gonryojxzi[address] [place], [place] [address]Dr. Garima Pulliam IG % 0.5 % Normal 0.0-0.5 [facility] Comment on above: Performed By: #### C BC ####[facility] Lhsqhtizyf[address] [place], [place] [address]Dr. Garima Pulliam LYMPH # 1.1 103/ul Critically low 1.2-3.8 The [facility] Comment on above: Performed By: #### C BC ####[facility] Qeijcyitfo00[address] [place] [id number]. Garima Pulliam Lymphocytes/100 WBC (Bld) 12.7 % Critically low 20.5-60.0 [facility] Comment on above: Performed By: #### C BC ####[facility] Bsjgafnhro[address] [place] [id number]. Chapisrenu Pulliam MANUAL DIFF REQ NO Normal [facility] Comment on above: Performed By: #### C BC ####[facility] Qleicajara[address] [place], [place] [address]Dr. Garima Heraclio MCH (RBC) [Entitic mass] 30.0 pg Normal 25.9-34.0 [facility] Comment on above: Performed By: #### C BC ####[facility] [address]jytbqvssy[address] [place], [place] [address]Dr. Garima Heraclio MCHC (RBC) [Mass/Vol] 32.6 g/dL Normal 29.9-35.2 [facility] Comment on above: Performed By: #### C BC ####[facility] Ebdmhpvona[address] [place], [place] [address]Dr. Garima Heraclio MCV (RBC) [Entitic vol] 91.9 fL Normal 80.0-94.0 [facility] Comment on above: Performed By: #### C BC ####[facility] Npnulpjecb[address] [place], [place] [address]Dr. Garima Pulliam MONO # 0.4 103/ul Normal 0.3-0.8 [facility] Comment on above: Performed By: #### C BC ####[facility] [address]tvnwudqgz[address] [place], [place] [address]Dr. Chapisrenu Pulliam Monocytes/100 WBC (Bld) 4.8 % Normal 1.7-12.0 [facility] Comment on above: Performed By: #### C BC ####[facility] Hqdmzvmqxk[address] [place], [place] [address]Dr. Garima Pulliam NEUT # 7.1 103/ul Critically high 1.4-6.[address] [facility] Comment on above: Performed By: #### C BC ####[facility] Ccrphuspfu[address] [place], [place] [address]Sn. Garima Pulliam Neutrophils/100 WBC (Bld) 80.4 % Critically high 43.0-75.0 [facility] Comment on above: Performed By: #### C BC ####[facility] Gaicxrqjrn[address] [place] [id number]. Garima Pulliam Platelet mean volume (Bld) [Entitic vol] 9.1 fL Critically low 9.5-13.5 [facility] Comment on above: Performed By: #### C BC ####[facility] B[address]udrrdapm[address] [place] [id number]. Garima Pulliam PLT 200 103/ul Normal 150-450 [facility] Comment on above: Performed By: #### C BC ####[facility] Qiddfjheum79[address] [place] [id number]. Garima Pulliam RBC 4.94 106/ul Normal 4.70-6.10 [facility] Comment on above: Performed By: #### C BC ####[facility] Jzzyqpvnuj69[address] [place] [id number]. Garima Pulliam WBC 8.9 103/ul Normal 4.0-11.0 [facility] Comment on above: Performed By: #### C BC ####[facility] Attcqfluva02[address] [place] [id number]. Garima Pulliam Covid-19 PCR (CVDTB)on SARS-CoV-2 (COVID-19) RNA MARIE+probe Ql (Unsp spec) Not detected Normal NOT DETECTED [facility] Comment on above: Result Comment: When [...] for this test is supported by the [place] of Health and Human Service's declaration that [...] be used). Performed By: #### C VDTBH ####[facility] Ewgutngqrm[address] [place] [address]Dr. Garima Pulliam LACTATE/LACTIC ACIDon 2021 Lactate [Moles/Vol] 1.7 mmol/L Normal 0.4-1.9 [facility] Comment on above: Performed By: #### L ACT ####[facility] [address]rcwod[address] [place], [place] [address]Dr. Garima Pulliam PROF 14(COMP METB)on 022 Albumin [Mass/Vol] 3.8 g/dL Normal 3.4-5.0 [facility] Comment on above: Performed By: #### C MP, BNP, CMADM ####[facility] [address]zndj[address] [place], [place] [address]Dr. Garima Pulliam Albumin/Globulin [Mass ratio] 1.5 {ratio} Normal [facility] Comment on above: Performed By: #### C MP, BNP, CMADM ####[facility] Bvmbtgdnxo[address] [place] [address]Dr. Garima Pulliam ALP [Catalytic activity/Vol] 62 U/L Normal 46-116 [facility] Comment on above: Performed By: #### C MP, BNP, CMADM ####[facility] Hscynuwvwp25[address] [place] [address]Dr. Garima Pulliam ALT [Catalytic activity/Vol] 37 U/L Normal 16-63 [facility] Comment on above: Performed By: #### C MP, BNP, CMADM ####[facility] Vwtjibfykd6[address] [place] [address]Dr. Garima Pulliam Anion gap [Moles/Vol] 8.0 mmol/L Normal [facility] Comment on above: Performed By: #### C MP, BNP, CMADM ####[facility] Nvhiqnhjpe87[address] [place] [address]Dr. Garima Pulliam AST [Catalytic activity/Vol] 20 U/L Normal 15-37 [facility] Comment on above: Performed By: #### C MP, BNP, CMADM ####[facility] Vnrnnehwfo6[address] [place] [address]Dr. Garima Pulliam Bilirubin [Mass/Vol] 0.6 mg/dL Normal 0.2-1.0 [facility] Comment on above: Performed By: #### C MP, BNP, CMADM ####[facility] Woddygbhtk[address] [place] [address]Dr. Garima Pulliam Calcium [Mass/Vol] 9.1 mg/dL Normal 8.5-10.1 [facility] Comment on above: Performed By: #### C MP, BNP, CMADM ####[facility] Ot[address]rvpcw[address] [place], [place] [address]Dr. Garima Pulliam Chloride [Moles/Vol] 103 mmol/L Normal 98-107 [facility] Comment on above: Performed By: #### C MP, BNP, CMADM ####[facility] Zymkupimpj[address] [place], [place] [address]Dr. Garima Pulliam CO2 [Moles/Vol] 31.8 mmol/L Normal 21.0-32.0 [facility] Comment on above: Performed By: #### C MP, BNP, CMADM ####[facility] [address]yxihir[address] [place], [place] [address]Dr. Garima Pulliam Creatinine [Mass/Vol] 0.63 mg/dL Critically low 0.70-1.30 [facility] Comment on above: Performed By: #### C MP, BNP, CMADM ####[facility] Uewjwrlris[address] [place], [place] [address]Dr. Garima Pulliam EGFR-AF GERMAN >60 Normal >=60 [facility] Comment on above: Performed By: #### C MP, BNP, CMADM ####[facility] Bvwkgvqmlh[address] [place], [place] [address]Dr. Garima Pulliam EGFR-NON AF GERMAN >60 Normal >=60 [facility] Comment on above: Performed By: #### C MP, BNP, CMADM ####[facility] Cqfjtngkje4[address] [place] [address]Dr. Garima Pulliam Globulin (S) [Mass/Vol] 2.6 g/dL Normal [facility] Comment on above: Performed By: #### C MP, BNP, CMADM ####[facility] Jouraoebps75[address] [place] [address]Dr. Garima Pulliam Glucose [Mass/Vol] 103 mg/dL Normal 74-106 [facility] Comment on above: Performed By: #### C MP, BNP, CMADM ####[facility] Djkaufysfo0245 [place] [address]Dr. Garima Pulliam Potassium [Moles/Vol] 3.8 mmol/L Normal 3.5-5.1 [facility] Comment on above: Performed By: #### C MP, BNP, CMADM ####[facility] Peqghzwozc4[address] [place] [address]Dr. Garima Pulliam Protein [Mass/Vol] 6.4 g/dL Normal 6.4-8.2 [facility] Comment on above: Performed By: #### C MP, BNP, CMADM ####[facility] Dwmqkcwrta7032 [place] [address]Dr. Garima Pulliam Sodium [Moles/Vol] 139 mmol/L Normal 136-145 [facility] Comment on above: Performed By: #### C MP, BNP, CMADM ####[facility] Kuwzkhusng3807 [place] [address]Dr. Garima Pulliam Urea nitrogen [Mass/Vol] 7.0 mg/dL Normal 7.0-18.0 [facility] Comment on above: Performed By: #### C MP, BNP, CMADM ####[facility] Nwcsbvvtxe2713 [place] [address]Dr. Garima Pulliam Urea nitrogen/Creatinine [Mass ratio] 11.1 mg/mg Normal [facility] Comment on above: Performed By: #### C MP, BNP, CMADM ####[facility] Xvwycclden3[address] [place] [address]Dr. Garima Pulliam PROTIMEon 09-29-2022 INR Coag (PPP) [Relative time] 1.14 {INR} Normal [facility] Comment on above: Performed By: #### P T, PTT ####[facility] [address]ijrjlg[address] [place], [place] [address]Dr. Garima Pulliam INR GUIDELINES SEE BELOW Normal [facility] Comment on above: Result Comment: WESLEY RED INR: 2.0 - 3.0 CONDITIONS NOT LISTED BELOW 2.5 - 3.5 FOR PROSTHETIC HEART VALVE REPLACEMENT 2.5 - 3.5 RECURRENT THROMBOSIS Performed By: #### P T, PTT ####[facility] Vymrzbueju[address] [place], [place] [address]Dr. Garima Pulliam PT Coag (PPP) [Time] 12.2 s Critically high 9.0-11.6 [facility] Comment on above: Performed By: #### P T, PTT ####[facility] Nqcxybebdm[address] [place], [place] [address]Dr. Garima Pulliam PTTon 09-29-2022 aPTT Coag (Bld) [Time] 29.3 s Normal 22.3-36.2 [facility] Comment on above: Performed By: #### P T, PTT ####[facility] [address]wsxfqvlf[address] [place], [place] [address]Dr. Garima Pulliam XR CHEST 1 Von 09-29-2022 XR CHEST 1 V Normal [facility] CBC AUTO DIFFon 09-26-2022 BASO # 0.0 103/ul Normal 0.0-0.1 [facility] Comment on above: Performed By: #### C BC ####[facility] Vigdsqgdnq[address] [place], [place] [address]Dr. Garima Pulliam Basophils/100 WBC (Bld) 0.2 % Normal 0.2-2.0 [facility] Comment on above: Performed By: #### C BC ####[facility] Sumrlbmztr[address] [place], [place] [address]Dr. Garima Pulliam EO # 0.1 103/ul Normal 0.0-0.7 [facility] Comment on above: Performed By: #### C BC ####[facility] Sthksjyigs[address] [place], [place] [address]Dr. Garima Pulliam Eosinophils/100 WBC (Bld) 1.0 % Normal 0.9-7.0 [facility] Comment on above: Performed By: #### C BC ####[facility] [address]zohvasxrx[address] [place], [place] [address]Dr. Garima Pulliam Erythrocyte distribution width (RBC) [Ratio] 13.4 % Normal 11.0-15.0 [facility] Comment on above: Performed By: #### C BC ####[facility] Aahbfkqbah[address] [place], [place] [address]Dr. Garima Pulliam Hematocrit (Bld) [Volume fraction] 46.3 % Normal 42.0-54.0 [facility] Comment on above: Performed By: #### C BC ####[facility] Wuddoxlbam[address] [place], [place] [address]Dr. Garima Pulliam Hemoglobin (Bld) [Mass/Vol] 15.3 g/dL Normal 14.0-18.0 [facility] Comment on above: Performed By: #### C BC ####[facility] Ixikogfwme[address] [place], [place] [address]Dr. Garima Pulliam IG # 0.05 10e3/ul Critically high 0.00-0.03 [facility] Comment on above: Performed By: #### C BC ####[facility] Kmzrustqap[address] [place], [place] [address]Dr. Garima Pulliam IG % 0.4 % Normal 0.0-0.5 [facility] Comment on above: Performed By: #### C BC ####[facility] Gszshsjogg[address] [place], [place] [address]Dr. Garima Pulliam LYMPH # 1.7 103/ul Normal 1.2-3.8 [facility] Comment on above: Performed By: #### C BC ####[facility] W[address]fsdihnf[address] [place], [place] [address]Dr. Garima Pulliam Lymphocytes/100 WBC (Bld) 12.7 % Critically low 20.5-60.0 [facility] Comment on above: Performed By: #### C BC ####[facility] Gsdbawfnoh[address] [place] [address]DrAdalberto Pulliam MANUAL DIFF REQ NO Normal [facility] Comment on above: Performed By: #### C BC ####[facility] Jarogvfujb1787 [place] [address]Dr. Garima Pulliam MCH (RBC) [Entitic mass] 30.1 pg Normal 25.9-34.0 [facility] Comment on above: Performed By: #### C BC ####[facility] Ouymyztdel[address] [place], [place] [address]Dr. Garima Pulliam MCHC (RBC) [Mass/Vol] 33.0 g/dL Normal 29.9-35.2 [facility] Comment on above: Performed By: #### C BC ####[facility] Tqhiefyehx[address] [place], [place] [address]DrAdalberto Pulliam MCV (RBC) [Entitic vol] 91.1 fL Normal 80.0-94.0 [facility] Comment on above: Performed By: #### C BC ####[facility] Hbs[address]qqmkq[address] [place], [place] [address]DrAdalberto Pulliam MONO # 0.9 103/ul Critically high 0.3-0.[address] [facility] Comment on above: Performed By: #### C BC ####[facility] Fymvxjnvlg[address] [place], [place] [address]DrAdalberto Pulliam Monocytes/100 WBC (Bld) 7.0 % Normal 1.7-12.0 [facility] Comment on above: Performed By: #### C BC ####[facility] Cdrjdkoqza[address] [place], [place] [address]DrAdalberto Pulliam NEUT # 10.4 103/ul Critically high 1.4-6.5 [facility] Comment on above: Performed By: #### C BC ####[facility] Kmxpfxdvpy[address] [place], [place] [address]DrAdalberto Pulliam Neutrophils/100 WBC (Bld) 78.7 % Critically high 43.0-75.0 [facility] Comment on above: Performed By: #### C BC ####[facility] Rkacmxrjtc59[address] [place] [address]Dr. Garima Pulliam Platelet mean volume (Bld) [Entitic vol] 8.9 fL Critically low 9.5-13.5 [facility] Comment on above: Performed By: #### C BC ####[facility] Yosbtohkzm[address] [place] [address]Dr. Garima Pulliam PLT 195 103/ul Normal 150-450 [facility] Comment on above: Performed By: #### C BC ####[facility] Jngfknibdt[address] [place], [place] [address]Dr. Garima Pulliam RBC 5.08 106/ul Normal 4.70-6.10 [facility] Comment on above: Performed By: #### C BC ####[facility] [address]gmkwpid[address] [place], [place] [address]Dr. Garima Pulliam WBC 13.2 103/ul Critically high 4.0-11.0 [facility] Comment on above: Performed By: #### C BC ####[facility] Fenykxfpay[address] [place], [place] [address]Dr. Garima Pulliam PROF 14(COMP METB)on 022 Albumin [Mass/Vol] 3.5 g/dL Normal 3.4-5.0 [facility] Comment on above: Performed By: #### C DAVID HSTROPN ####[facility] Hpallcnqty[address] [place] [address]Dr. Garima Pulliam Albumin/Globulin [Mass ratio] 1.2 {ratio} Normal [facility] Comment on above: Performed By: #### C RAFAT HERNANDEZTROPN ####[facility] Etatpudhij[address] [place] [address]Dr. Garima Pulliam ALP [Catalytic activity/Vol] 71 U/L Normal 46-116 [facility] Comment on above: Performed By: #### C DAVID HSTROPN ####[facility] Lawpziouud[address] [place] [address]Dr. Garima Pulliam ALT [Catalytic activity/Vol] 37 U/L Normal 16-63 [facility] Comment on above: Performed By: #### C DAVID, HSTROPN ####[facility] Tmeuhucbfm14[address] [place] [address]Dr. Garima Pulliam Anion gap [Moles/Vol] 4.8 mmol/L Normal [facility] Comment on above: Performed By: #### C DAVID, HSTROPN ####[facility] [address]aszkais[address] [place], [place] [address]Dr. Garima Pulliam AST [Catalytic activity/Vol] 21 U/L Normal 15-37 [facility] Comment on above: Performed By: #### C DAVID, HSTROPN ####[facility] [address]jdlkr[address] [place], [place] [address]Dr. Garima Pulliam Bilirubin [Mass/Vol] 0.3 mg/dL Normal 0.2-1.0 [facility] Comment on above: Performed By: #### C DAVID, HSTROPN ####[facility] Spnfivcslh[address] [place] [address]Dr. Garima Pulliam Calcium [Mass/Vol] 8.9 mg/dL Normal 8.5-10.1 [facility] Comment on above: Performed By: #### C DAVID, HSTROPN ####[facility] Trktalijjk[address] [place] [address]Dr. Garima Pulliam Chloride [Moles/Vol] 106 mmol/L Normal 98-107 [facility] Comment on above: Performed By: #### C DAVID, HSTROPN ####[facility] Sigoxnoitw15[address] [place] [address]Dr. Garima Pulliam CO2 [Moles/Vol] 29.8 mmol/L Normal 21.0-32.0 [facility] Comment on above: Performed By: #### C DAVID, HSTROPN ####[facility] Qhzgvmszho2[address] [place] [address]Dr. Garima Pulliam Creatinine [Mass/Vol] 0.68 mg/dL Critically low 0.70-1.30 [facility] Comment on above: Performed By: #### C MP, HSTROPN ####[facility] Qfrryhqxoa55[address] [place] [address]Dr. Garima Pulliam EGFR-AF GERMAN >60 Normal >=[address] [facility] Comment on above: Performed By: #### C MP, HSTROPN ####[facility] Wjcffbngzd26[address] [place] [address]Dr. Chapislan Pulliam EGFR-NON AF GERMAN >60 Normal >=60 [facility] Comment on above: Performed By: #### C MP, HSTROPN ####[facility] Pvinifvond[address] [place] [address]Dr. Garima Pulliam Globulin (S) [Mass/Vol] 2.8 g/dL Normal [facility] Comment on above: Performed By: #### C MP, HSTROPN ####[facility] Dtsnehswiv23[address] [place] [address]Dr. Garima Pulliam Glucose [Mass/Vol] 133 mg/dL Critically high 74-106 [facility] Comment on above: Performed By: #### C MP, HSTROPN ####[facility] Ozsjewgbiq1854 [place] [address]Dr. Chapisrenu Pulliam Potassium [Moles/Vol] 3.6 mmol/L Normal 3.5-5.1 [facility] Comment on above: Performed By: #### C MP, HSTROPN ####[facility] Wedlujaeks1216 [place] [address]Dr. Chapisrenu Pulliam Protein [Mass/Vol] 6.3 g/dL Critically low 6.4-8.2 [facility] Comment on above: Performed By: #### C MP, HSTROPN ####[facility] S[address]sgpjq[address] [place], [place] [address]Dr. Chapisrenu Pulliam Sodium [Moles/Vol] 137 mmol/L Normal 136-145 [facility] Comment on above: Performed By: #### C MP, HSTROPN ####[facility] Ki[address]tsai[address] [place], [place] [address]Dr. Garima Pulliam Urea nitrogen [Mass/Vol] 15.0 mg/dL Normal 7.0-18.0 [facility] Comment on above: Performed By: #### C DAVID HSTROPN ####[facility] Pqcdsejhdc12[address] [place] [address]Dr. Chapisrenu Pulliam Urea nitrogen/Creatinine [Mass ratio] 22.1 mg/mg Normal [facility] Comment on above: Performed By: #### C DAVID HSTROPN ####[facility] Rbktqfbndf[address] [place] [address]Dr. Garima Heraclio TROPONIN, HIGH SENSITIVITYon 09-26-2022 HSTROP 12.8 pg/mL Normal 4.0-76.1 [facility] Comment on above: Result Comment: CUT- OFF POINTS HAVE BEEN ESTABLISHED BASED ON THE FOURTH UNIVERSAL DEFINITIONS OF MYOCARDIALINFARCTION. THE UPPER REFERENCE LIMIT (URL) OF TROPONIN, DEFINED THE 99TH PERCENTILE OFcTnI DISTRIBUTION IN A REFERENCE POPULATION, HAS BEEN CONFIRMED THE DECISION THRESHOLDFOR OR DIAGNOSIS. Performed By: #### C DAVID HSTROPN ####[facility] Orv[address]fhihf[address] [place] [address]Dr. Chapisrenu Pulliam XR CHEST 1 Von 09-26-2022 XR CHEST 1 V Normal [facility] XR CHEST 1 Von 09-16-2022 XR CHEST 1 V Normal [facility] CBC AUTO DIFFon 09-15-2022 BASO # 0.0 103/ul Normal 0.0-0.1 [facility] Comment on above: Performed By: #### C BC ####[facility] [address]xltlqiow[address] [place] [address]Dr. Garima Heraclio Basophils/100 WBC (Bld) 0.1 % Critically low 0.2-2.0 [facility] Comment on above: Performed By: #### C BC ####[facility] Heyyqwbbgy[address] [place] [address]Dr. Garima Pulliam EO # 0.0 103/ul Normal 0.0-0.7 [facility] Comment on above: Performed By: #### C BC ####[facility] Zfhzseklpl[address] [place] [address]Dr. Garima Pulliam Eosinophils/100 WBC (Bld) 0.1 % Critically low 0.9-7.0 [facility] Comment on above: Performed By: #### C BC ####[facility] Ehkujqbmwi[address] [place] [address]Dr. Garima Pulliam Erythrocyte distribution width (RBC) [Ratio] 14.1 % Normal 11.0-15.0 [facility] Comment on above: Performed By: #### C BC ####[facility] Neonwfgppo[address] [place], [place] [address]Dr. Garima Pulliam Hematocrit (Bld) [Volume fraction] 46.1 % Normal 42.0-54.0 [facility] Comment on above: Performed By: #### C BC ####[facility] Yxdnnsvyus[address] [place], [place] [address]Dr. Garima Pulliam Hemoglobin (Bld) [Mass/Vol] 15.0 g/dL Normal 14.0-18.0 [facility] Comment on above: Performed By: #### C BC ####[facility] Xuczatklek[address] [place], [place] [address]Dr. Garima Pulliam IG # 0.03 10e3/ul Normal 0.00-0.03 [facility] Comment on above: Performed By: #### C BC ####[facility] Zwoqjpxmzk[address] [place], [place] [address]Dr. Garima Pulliam IG % 0.3 % Normal 0.0-0.5 [facility] Comment on above: Performed By: #### C BC ####[facility] Lsptxxzhro[address] [place], [place] [address]Dr. Garima Pulliam LYMPH # 0.6 103/ul Critically low 1.2-3.8 The [facility] Comment on above: Performed By: #### C BC ####[facility] Ozumgtugql[address] [place], [place] [address]Dr. Garima Pulliam Lymphocytes/100 WBC (Bld) 5.8 % Critically low 20.5-60.0 [facility] Comment on above: Performed By: #### C BC ####[facility] Vfzxootlji5[address] [place] [id number]. Garima Pulliam MANUAL DIFF REQ NO Normal The [facility] Comment on above: Performed By: #### C BC ####[facility] Xtbpfsotdj8051 [place] [id number]. Garima Pulliam MCH (RBC) [Entitic mass] 30.2 pg Normal 25.9-34.0 [facility] Comment on above: Performed By: #### C BC ####[facility] Wjrqcjvivc40[address] [place] [address]Dr. Garima Pulliam MCHC (RBC) [Mass/Vol] 32.5 g/dL Normal 29.9-35.2 [facility] Comment on above: Performed By: #### C BC ####[facility] Yoozlmmaqi80[address] [place] [address]Dr. Garima Pulliam MCV (RBC) [Entitic vol] 92.8 fL Normal 80.0-94.0 [facility] Comment on above: Performed By: #### C BC ####[facility] Juhwwcpiny16[address] [place] [address]Dr. Garima Heraclio MONO # 0.3 103/ul Normal 0.3-0.8 [facility] Comment on above: Performed By: #### C BC ####[facility] Qbwshtbpju8915 [place] [id number]. Garima Heraclio Monocytes/100 WBC (Bld) 3.2 % Normal 1.7-12.0 [facility] Comment on above: Performed By: #### C BC ####[facility] Olkzzycgie6568 [place] [id number]. Garima Pulliam NEUT # 9.8 103/ul Critically high 1.4-6.[address] [facility] Comment on above: Performed By: #### C BC ####[facility] Kynfxvjmna7672 [place] [id number]. Garima Pulliam Neutrophils/100 WBC (Bld) 90.5 % Critically high 43.0-75.0 [facility] Comment on above: Performed By: #### C BC ####[facility] Cdcqmetwfr8005 [place] [id number]. Garima Pulliam Platelet mean volume (Bld) [Entitic vol] 9.4 fL Critically low 9.5-13.5 [facility] Comment on above: Performed By: #### C BC ####[facility] Utzxisijnk2[address] [place] [id number]. Garima Pulliam PLT 208 103/ul Normal 150-450 [facility] Comment on above: Performed By: #### C BC ####[facility] Akcjyjwfwl8325 [place] [address]Dr. Garima Pulliam RBC 4.97 106/ul Normal 4.70-6.10 [facility] Comment on above: Performed By: #### C BC ####[facility] Umjlzicxgl3551 [place] [address]Dr. Garima Pulliam WBC 10.8 103/ul Normal 4.0-11.0 [facility] Comment on above: Performed By: #### C BC ####[facility] Tqckcozodz7431 [place] [address]Dr. Garima Pulliam PROF 14(COMP METB)on 022 Albumin [Mass/Vol] 4.0 g/dL Normal 3.4-5.0 [facility] Comment on above: Performed By: #### C MP ####[facility] Tqgsnpmjea5031 [place] [address]Dr. Garima Pulliam Albumin/Globulin [Mass ratio] 1.5 {ratio} Normal [facility] Comment on above: Performed By: #### C MP ####[facility] Xoeptcdpuq4149 [place] [address]Dr. Garima Pulliam ALP [Catalytic activity/Vol] 73 U/L Normal 46-116 [facility] Comment on above: Performed By: #### C MP ####[facility] Rlhdukrblu1817 [place] [address]Dr. Garima Pulliam ALT [Catalytic activity/Vol] 42 U/L Normal 16-63 [facility] Comment on above: Performed By: #### C MP ####[facility] Vxbaveotcq0992 [place] [address]Dr. Garima Pulliam Anion gap [Moles/Vol] 9.1 mmol/L Normal [facility] Comment on above: Performed By: #### C MP ####[facility] Crxowiwqlh[address] [place], [place] [address]Dr. Garima Pulliam AST [Catalytic activity/Vol] 28 U/L Normal 15-37 [facility] Comment on above: Performed By: #### C MP ####[facility] Nqvqcleqmc99[address] [place], [place] [address]Dr. Garima Pulliam Bilirubin [Mass/Vol] 0.6 mg/dL Normal 0.2-1.0 [facility] Comment on above: Performed By: #### C MP ####[facility] Jcnbnywzjv[address] [place], [place] [address]Dr. Garima Pulliam Calcium [Mass/Vol] 8.6 mg/dL Normal 8.5-10.1 The [facility] Comment on above: Performed By: #### C MP ####[facility] Ambduknpsb[address] [place], [place] [address]Dr. Garima Pulliam Chloride [Moles/Vol] 105 mmol/L Normal 98-107 [facility] Comment on above: Performed By: #### C MP ####[facility] Kitchzmadg[address] [place], [place] [address]Dr. Garima Pulliam CO2 [Moles/Vol] 28.5 mmol/L Normal 21.0-32.0 The [facility] Comment on above: Performed By: #### C MP ####[facility] Muhmaljpcy13[address] [place], [place] [address]Dr. Garima Heraclio Creatinine [Mass/Vol] 0.78 mg/dL Normal 0.70-1.30 [facility] Comment on above: Performed By: #### C MP ####[facility] Igdywlvufu36[address] [place], [place] [address]Dr. Chapisrenu Heraclio EGFR-AF GERMAN >60 Normal >=60 The [facility] Comment on above: Performed By: #### C MP ####[facility] Noegymekmu01[address] [place], [place] [address]Dr. Garima Pulliam EGFR-NON AF GERMAN >60 Normal >=60 [facility] Comment on above: Performed By: #### C MP ####[facility] Tkaberyzks5104 [place] [address]Dr. Garima Pullima Globulin (S) [Mass/Vol] 2.7 g/dL Normal [facility] Comment on above: Performed By: #### C MP ####[facility] Yxmnrrajto5187 [place] [address]Dr. Garima Pulliam Glucose [Mass/Vol] 220 mg/dL Critically high 74-106 T [facility] Comment on above: Performed By: #### C MP ####[facility] Zwknfkqfnm5643 [place] [address]Dr. Garima Pulliam Potassium [Moles/Vol] 3.6 mmol/L Normal 3.5-5.1 [facility] Comment on above: Performed By: #### C MP ####[facility] Qlaxehjpnx[address] [place], [place] [address]Dr. Garima Pulliam Protein [Mass/Vol] 6.7 g/dL Normal 6.4-8.2 [facility] Comment on above: Performed By: #### C MP ####[facility] Aodwspurep63[address] [place], [place] [address]Dr. Garima Pulliam Sodium [Moles/Vol] 139 mmol/L Normal 136-145 [facility] Comment on above: Performed By: #### C MP ####[facility] Tubkepnpbj8[address] [place], [place] [address]Dr. Garima Pulliam Urea nitrogen [Mass/Vol] 11.0 mg/dL Normal 7.0-18.0 [facility] Comment on above: Performed By: #### C MP ####[facility] Itjwuewqfw193[address] [place], [place] [address]Dr. Garima Pulliam Urea nitrogen/Creatinine [Mass ratio] 14.1 mg/mg Normal [facility] Comment on above: Performed By: #### C MP ####[facility] Xvrvofjjgz[address] [place], [place] [address]Dr. Garima Pulliam CARDIAC NASH 3-6on 2 CK [Catalytic activity/Vol] 240 U/L Normal 39-308 [facility] Comment on above: Performed By: #### C MREP ####[facility] Iigrhyeagx8[address] [place] [address]Dr. Garima Pulliam CK.MB [Mass/Vol] 10.38 ng/mL Critically high <=3.60 [facility] Comment on above: Performed By: #### C MREP ####[facility] Okiuiqmzqm20[address] [place] [address]Dr. Garima Pulliam HSTROP 18.5 pg/mL Normal 4.0-76.1 [facility] Comment on above: Result Comment: CUT- OFF POINTS HAVE BEEN ESTABLISHED BASED ON THE FOURTH UNIVERSAL DEFINITIONS OF MYOCARDIALINFARCTION. THE UPPER REFERENCE LIMIT (URL) OF TROPONIN, DEFINED THE 99TH PERCENTILE OFcTnI DISTRIBUTION IN A REFERENCE POPULATION, HAS BEEN CONFIRMED THE DECISION THRESHOLDFOR OR DIAGNOSIS. Performed By: #### C MREP ####[facility] Tulpehjpjg5[address] [place] [address]Dr. Garima Pulliam CK [Catalytic activity/Vol] 257 U/L Normal 39-308 [facility] Comment on above: Performed By: #### C MREP ####[facility] Eiepluqizw[address] [place], [place] [address]Dr. Garima Pulliam CK.MB [Mass/Vol] 9.89 ng/mL Critically high <=3.60 [facility] Comment on above: Performed By: #### C MREP ####[facility] Bvmipqregh[address] [place], [place] [address]Dr. Garima Pulliam HSTROP 16.9 pg/mL Normal 4.0-76.1 [facility] Comment on above: Result Comment: CUT- OFF POINTS HAVE BEEN ESTABLISHED BASED ON THE FOURTH UNIVERSAL DEFINITIONS OF MYOCARDIALINFARCTION. THE UPPER REFERENCE LIMIT (URL) OF TROPONIN, DEFINED THE 99TH PERCENTILE OFcTnI DISTRIBUTION IN A REFERENCE POPULATION, HAS BEEN CONFIRMED THE DECISION THRESHOLDFOR OR DIAGNOSIS. Performed By: #### C MREP ####[facility] Zpzzriarby0912 [place] [address]Dr. Garima Heraclio CBC AUTO DIFFon 10-22-2022 BASO # 0.0 103/ul Normal 0.0-0.1 [facility] Comment on above: Performed By: #### C BC ####[facility] Esejooypej5970 [place] [id number]. Garima Pulliam Basophils/100 WBC (Bld) 0.1 % Critically low 0.2-2.0 [facility] Comment on above: Performed By: #### C BC ####[facility] Bvahddddfx4511 [place] [address]Dr. Garima Pulliam EO # 0.0 103/ul Normal 0.0-0.7 [facility] Comment on above: Performed By: #### C BC ####[facility] L[address]jjardswc[address] [place], [place] [address]Dr. Chapisrenu Heraclio Eosinophils/100 WBC (Bld) 0.0 % Critically low 0.9-7.0 [facility] Comment on above: Performed By: #### C BC ####[facility] Oeenamzwur[address] [place], [place] [address]Dr. Garima Pulliam Erythrocyte distribution width (RBC) [Ratio] 13.6 % Normal 11.0-15.0 [facility] Comment on above: Performed By: #### C BC ####[facility] Siqsdfbcgf[address] [place], [place] [address]Dr. Garima Pulliam Hematocrit (Bld) [Volume fraction] 48.2 % Normal 42.0-54.0 [facility] Comment on above: Performed By: #### C BC ####[facility] Znfrjrvxax[address] [place], [place] [address]Dr. Garima Pulliam Hemoglobin (Bld) [Mass/Vol] 16.0 g/dL Normal 14.0-18.0 [facility] Comment on above: Performed By: #### C BC ####[facility] Wfrckrsbyv78[address] [place], [place] [address]Dr. Chapisrenu Heraclio IG # 0.02 10e3/ul Normal 0.00-0.03 [facility] Comment on above: Performed By: #### C BC ####[facility] Odvvucrmhf9785 [place] [id number]. Garima Pulliam IG % 0.3 % Normal 0.0-0.5 [facility] Comment on above: Performed By: #### C BC ####[facility] Fhcabtjvas8186 [place] [address]Dr. Garima Heraclio LYMPH # 0.5 103/ul Critically low 1.2-3.8 The [facility] Comment on above: Performed By: #### C BC ####[facility] Eimhcllshe9672 [place] [address]Dr. Garima Heraclio Lymphocytes/100 WBC (Bld) 7.7 % Critically low 20.5-60.0 [facility] Comment on above: Performed By: #### C BC ####[facility] Xutsvbeviq62[address] [place], [place] [address]Dr. Chapisrenu Pulliam MANUAL DIFF REQ NO Normal [facility] Comment on above: Performed By: #### C BC ####[facility] Lqqzizxaml[address] [place], [place] [address]Dr. Garima Heraclio MCH (RBC) [Entitic mass] 30.6 pg Normal 25.9-34.0 [facility] Comment on above: Performed By: #### C BC ####[facility] Kefszaatif[address] [place], [place] [address]Dr. Garima Pulliam MCHC (RBC) [Mass/Vol] 33.2 g/dL Normal 29.9-35.2 [facility] Comment on above: Performed By: #### C BC ####[facility] Hthrvtqgzs[address] [place], [place] [address]Dr. Garima Heraclio MCV (RBC) [Entitic vol] 92.2 fL Normal 80.0-94.0 [facility] Comment on above: Performed By: #### C BC ####[facility] Vmlnwecjhh[address] [place], [place] [address]Dr. Garima Pulliam MONO # 0.0 103/ul Critically low 0.3-0.8 The [facility] Comment on above: Performed By: #### C BC ####[facility] Jmfsjrmqjv7581 [place] [id number]. Garima Pulliam Monocytes/100 WBC (Bld) 0.4 % Critically low 1.7-12.0 [facility] Comment on above: Performed By: #### C BC ####[facility] Hadvqwujkr2626 [place] [id number]. Garima Pulliam NEUT # 6.2 103/ul Normal 1.4-6.5 [facility] Comment on above: Performed By: #### C BC ####[facility] Hottreqbwq7023 [place] [address]Dr. Garima Pulliam Neutrophils/100 WBC (Bld) 91.5 % Critically high 43.0-75.0 [facility] Comment on above: Performed By: #### C BC ####[facility] Gplnlmgsnt1854 [place] [address]Dr. Garima Pulliam Platelet mean volume (Bld) [Entitic vol] 8.7 fL Critically low 9.5-13.5 [facility] Comment on above: Performed By: #### C BC ####[facility] Frsuxpktrm5243 [place] [address]Dr. Garima Pulliam PLT 179 103/ul Normal 150-450 [facility] Comment on above: Performed By: #### C BC ####[facility] Zzcjibnhvl8410 [place] [id number]. Garima Pulliam RBC 5.23 106/ul Normal 4.70-6.10 [facility] Comment on above: Performed By: #### C BC ####[facility] Dxmcgqnydf9989 [place] [address]Dr. Garima Pulliam WBC 6.7 103/ul Normal 4.0-11.0 [facility] Comment on above: Performed By: #### C BC ####[facility] Mtxurkckyi9627 [place] [address]Dr. Garima Pulliam PROF CHEM 8 (BAS METB)on Anion gap [Moles/Vol] 12.1 mmol/L Normal [facility] Comment on above: Performed By: #### B MP ####[facility] Jirbhaqnlo6600 [place] [id number]. Garima Pulliam Calcium [Mass/Vol] 8.7 mg/dL Normal 8.5-10.1 [facility] Comment on above: Performed By: #### B MP ####[facility] Jffpfetjnw3837 [place] [id number]. Garima Pulliam Chloride [Moles/Vol] 105 mmol/L Normal 98-107 [facility] Comment on above: Performed By: #### B MP ####[facility] Qxxquzkpoc6446 [place] [id number]. Garima Pulliam CO2 [Moles/Vol] 25.5 mmol/L Normal 21.0-32.0 [facility] Comment on above: Performed By: #### B MP ####[facility] Wuohpgihwy8498 [place] [address]Dr. Garima Pulliam Creatinine [Mass/Vol] 0.63 mg/dL Critically low 0.70-1.30 [facility] Comment on above: Performed By: #### B MP ####[facility] Zkzyubqwsv7430 [place] [address]Dr. Garima Pulliam EGFR-AF GERMAN >60 Normal >=60 [facility] Comment on above: Performed By: #### B MP ####[facility] Xkiwgkvehw3586 [place] [address]Dr. Garima Pulliam EGFR-NON AF GERMAN >60 Normal >=60 [facility] Comment on above: Performed By: #### B MP ####[facility] Ikwgrehxgx4611 [place] [address]Dr. Garima Pulliam Glucose [Mass/Vol] 162 mg/dL Critically high 74-106 [facility] Comment on above: Performed By: #### B MP ####[facility] Z[address]wrznhrd[address] [place], [place] [address]Dr. Garima Pulliam Potassium [Moles/Vol] 3.6 mmol/L Normal 3.5-5.1 [facility] Comment on above: Performed By: #### B MP ####[facility] Doanrbvchl[address] [place], [place] [address]Dr. Garima Pulliam Sodium [Moles/Vol] 139 mmol/L Normal 136-145 [facility] Comment on above: Performed By: #### B DAVID ####[facility] Yzqxcqexgx7776 [place] [address]Dr. Garima Pulliam Urea nitrogen [Mass/Vol] 9.0 mg/dL Normal 7.0-18.0 [facility] Comment on above: Performed By: #### B DAVID ####[facility] Xumlnympsi2388 [place] [address]Dr. Garima Pulliam Urea nitrogen/Creatinine [Mass ratio] 14.3 mg/mg Normal [facility] Comment on above: Performed By: #### B DAVID ####[facility] Vjvgspnvyx9306 [place] [address]Dr. Chapisrenu Pulliam CARDIAC NASH ADMITon 09-12- 022 CK [Catalytic activity/Vol] 304 U/L Normal 39-308 [facility] Comment on above: Performed By: #### B NANCY HERNANDEZ ####[facility] Iwjizukfyo9872 [place] [address]Dr. Garima Pulliam CK.MB [Mass/Vol] 11.81 ng/mL Critically high <=3.60 Th [facility] Comment on above: Performed By: #### B NANCY HERNANDEZ ####[facility] Dmfnzgkjgu8639 [place] [address]Dr. Garima Heraclio HSTROP 13.3 pg/mL Normal 4.0-76.1 [facility] Comment on above: Result Comment: CUT- OFF POINTS HAVE BEEN ESTABLISHED BASED ON THE FOURTH UNIVERSAL DEFINITIONS OF MYOCARDIALINFARCTION. THE UPPER REFERENCE LIMIT (URL) OF TROPONIN, DEFINED THE 99TH PERCENTILE OFcTnI DISTRIBUTION IN A REFERENCE POPULATION, HAS BEEN CONFIRMED THE DECISION THRESHOLDFOR OR DIAGNOSIS. Performed By: #### B NANCY HERNANDEZ ####[facility] Qsqvmmptme7178 [place] [address]Dr. Garima Pulliam DORIS 133 ng/mL Critically high 16-96 [facility] Comment on above: Performed By: #### B NANCY HERNANDEZ ####[facility] Lqtxplypkt8413 [place] [address]Dr. Garima Pulliam CBC AUTO DIFFon 09-12-2022 BASO # 0.0 103/ul Normal 0.0-0.1 [facility] Comment on above: Performed By: #### C BC ####[facility] Ncsnnqddao[address] [place], [place] [address]Dr. Garima Heraclio Basophils/100 WBC (Bld) 0.2 % Normal 0.2-2.0 [facility] Comment on above: Performed By: #### C BC ####[facility] Rcrjcqqsnx[address] [place], [place] [address]Dr. Garima Heraclio EO # 0.2 103/ul Normal 0.0-0.7 [facility] Comment on above: Performed By: #### C BC ####[facility] Yyvadhgfjt19[address] [place], [place] [address]Dr. Chapisrenu Pulliam Eosinophils/100 WBC (Bld) 1.3 % Normal 0.9-7.0 [facility] Comment on above: Performed By: #### C BC ####[facility] Qdghnwxxrj[address] [place], [place] [address]Dr. Garima Pulliam Erythrocyte distribution width (RBC) [Ratio] 13.7 % Normal 11.0-15.0 [facility] Comment on above: Performed By: #### C BC ####[facility] Zgkbvxehdr[address] [place], [place] [address]Dr. Garima Pulliam Hematocrit (Bld) [Volume fraction] 46.4 % Normal 42.0-54.0 [facility] Comment on above: Performed By: #### C BC ####[facility] Keyukvclyo145[address] [place], [place] [address]Dr. Garima Pulliam Hemoglobin (Bld) [Mass/Vol] 15.7 g/dL Normal 14.0-18.0 [facility] Comment on above: Performed By: #### C BC ####[facility] Xwffsmrbfl[address] [place], [place] [address]Dr. Garima Pulliam IG # 0.04 10e3/ul Critically high 0.00-0.03 [facility] Comment on above: Performed By: #### C BC ####[facility] Lmlbkkoyrh8944 [place] [id number]. Garmia Pulliam IG % 0.3 % Normal 0.0-0.5 [facility] Comment on above: Performed By: #### C BC ####[facility] Ihthtfpvdp1358 [place] [id number]. Garima Pulliam LYMPH # 1.7 103/ul Normal 1.2-3.8 [facility] Comment on above: Performed By: #### C BC ####[facility] Bamkdmekgx2744 [place] [id number]. Garima Pulliam Lymphocytes/100 WBC (Bld) 11.5 % Critically low 20.5-60.0 [facility] Comment on above: Performed By: #### C BC ####[facility] Hkhtonyywh4898 [place] [id number]. Garima Pulliam MANUAL DIFF REQ NO Normal [facility] Comment on above: Performed By: #### C BC ####[facility] Rezagqkpfb7307 [place] [id number]. Garima Pulliam MCH (RBC) [Entitic mass] 31.0 pg Normal 25.9-34.0 [facility] Comment on above: Performed By: #### C BC ####[facility] Neyucbyuzl3608 [place] [id number]. Garima Pulliam MCHC (RBC) [Mass/Vol] 33.8 g/dL Normal 29.9-35.2 [facility] Comment on above: Performed By: #### C BC ####[facility] Zzxfevthit9200 [place] [id number]. Garima Pulliam MCV (RBC) [Entitic vol] 91.7 fL Normal 80.0-94.0 [facility] Comment on above: Performed By: #### C BC ####[facility] Dimjpbulgt1113 [place] [id number]. Garima Heraclio MONO # 0.8 103/ul Normal 0.3-0.8 [facility] Comment on above: Performed By: #### C BC ####[facility] Avlqfbsvwz1085 [place] [id number]. Garima Pulliam Monocytes/100 WBC (Bld) 5.2 % Normal 1.7-12.0 [facility] Comment on above: Performed By: #### C BC ####[facility] Suzxbyyhvi1949 [place] [id number]. Garima Pulliam NEUT # 11.7 103/ul Critically high 1.4-6.5 [facility] Comment on above: Performed By: #### C BC ####[facility] Nkxwfgaeyv1422 [place] [id number]. Garima Pulliam Neutrophils/100 WBC (Bld) 81.5 % Critically high 43.0-75.0 [facility] Comment on above: Performed By: #### C BC ####[facility] Foncoxzeas5738 [place] [address]Dr. Garima Pulliam Platelet mean volume (Bld) [Entitic vol] 8.6 fL Critically low 9.5-13.5 [facility] Comment on above: Performed By: #### C BC ####[facility] Wptppvfxdx2354 [place] [id number]. Garima Pulliam PLT 191 103/ul Normal 150-450 [facility] Comment on above: Performed By: #### C BC ####[facility] Ubbphuoqlo[address] [place], [place] [address]Dr. Garima Pulliam RBC 5.06 106/ul Normal 4.70-6.10 [facility] Comment on above: Performed By: #### C BC ####[facility] Kolnrylwww[address] [place], [place] [address]Dr. Garima Pulliam WBC 14.4 103/ul Critically high 4.0-11.0 [facility] Comment on above: Performed By: #### C BC ####[facility] C[address]sfgwxoi[address] [place], [place] [address]Dr. Garima Pulliam [facility]24 SARS-CoV-2 (COVID-19) RNA MARIE+probe Ql (Unsp spec) Not detected Normal NOT DETECTED [facility] Comment on above: Result Comment: When [...] for this test is supported by the Want [employer] Clerk of Health and Human Service's declaration that [...] be used). Performed By: #### C VDTBH ####[facility] [address]waebej[address] [place], [place] [address]Dr. Garima Pulliam LACTATE/LACTIC ACIDon 2021 Lactate [Moles/Vol] 1.0 mmol/L Normal 0.4-1.9 [facility] Comment on above: Performed By: #### L ACT ####[facility] Shiyliloxh[address] [place], [place] [address]Dr. Garima Pulliam PROF CHEM 8 (BAS METB)on Anion gap [Moles/Vol] 11.6 mmol/L Normal [facility] Comment on above: Performed By: #### B NANCY HERNANDEZ ####[facility] Pjyxsrtvsf5[address] [place] [address]Dr. Garima Pulliam Calcium [Mass/Vol] 9.2 mg/dL Normal 8.5-10.1 [facility] Comment on above: Performed By: #### B NANCY HERNANDEZ ####[facility] Jrrptakiwg7604 [place] [address]Dr. Garima Pulliam Chloride [Moles/Vol] 105 mmol/L Normal 98-107 [facility] Comment on above: Performed By: #### B MP, CMADM ####[facility] Bejczskmsg5825 [place] [id number]. Garima Pulliam CO2 [Moles/Vol] 25.9 mmol/L Normal 21.0-32.[address] [facility] Comment on above: Performed By: #### B DAVID, CMADM ####[facility] Pfryxyjipv0052 [place] [address]Dr. Garima Pulliam Creatinine [Mass/Vol] 0.72 mg/dL Normal 0.70-1.30 [facility] Comment on above: Performed By: #### B DAVID, CMADM ####[facility] Pabxhmorwm6670 [place] [id number]. Garima Pulliam EGFR-AF GERMAN >60 Normal >=[address] [facility] Comment on above: Performed By: #### B DAVID, CMADM ####[facility] [id number] [place] [address]Dr. Chapisrenu Pulliam EGFR-NON AF GERMAN >60 Normal >=60 [facility] Comment on above: Performed By: #### B DAVID, CMAANA ROSA ####[facility] [address] [place] [address]Dr. Garima Pulliam Glucose [Mass/Vol] 111 mg/dL Critically high 74-106 [facility] Comment on above: Performed By: #### B DAVID, CMADM ####[facility] [address] [place] [address]Dr. Chapisrenu Pulliam Potassium [Moles/Vol] 3.5 mmol/L Normal 3.5-5.1 [facility] Comment on above: Performed By: #### B DAVID, CMADM ####[facility] [address] [place] [address]Dr. Chapisrenu Pulliam Sodium [Moles/Vol] 139 mmol/L Normal 136-145 [facility] Comment on above: Performed By: #### B DAVID, CMADM ####[facility] [address] [place] [address]Dr. Garima Pulliam Urea nitrogen [Mass/Vol] 7.0 mg/dL Normal 7.0-18.0 [facility] Comment on above: Performed By: #### B DAVID, CMADM ####[facility] [address] [place], [place] [address]Iz. Garima Pulliam Urea nitrogen/Creatinine [Mass ratio] 9.7 mg/mg Normal [facility] Comment on above: Performed By: #### B MP, CMADM ####[facility] [address] [place], [place] [address]Fq. Garima Pulliam XR CHEST 1 Von 09-12-2022 XR CHEST 1 V Normal [facility] Encounters Encounter Date Encounter Type Care [...] Facility:[facility] Start: 12-25-2022 End: 12-26-2022 ambulatory [facility] HCAPIN Facility:[facility] Start: 12-10-2022 End: 12-10-2022 ambulatory KENTRELL [...] Facility:H1 Payers Date Payer Category Payer Unknown [id number] 1960 Medicaid [id number] 1960 Unknown [id number] 1959 Unknown [id number] 1954 Unknown [id number] 2.16.84 0.1.406434.3.579.2.593 1954 Unknown [id number] 2.16.84 0.1.613009.3.579.2.593 1954 Unknown [id number] 2.16.84 0.1.362626.3.579.2.593 1954 Unknown [id number] 2.16.84 0.1.387472.3.579.2.593 1954 Unknown [id number] 2.16.84 0.1.208974.3.579.2.593 1954 Unknown [id number] 2.16.84 0.1.666368.3.579.2.593 1954 Unknown [id number] 2.16.84 0.1.596228.3.579.2.593 1954 Unknown [id number] 2.16.84 0.1.045275.3.579.2.593 1954 Unknown [id number] 2.16.84 0.1.486806.3.579.2.593 1954 Unknown [id number] 2.16.84 0.1.471218.3.579.2.593 1954 Unknown [id number] 2.16.84 0.1.385364.3.579.2.593 1954 Unknown [id number] 2.16.84 0.1.854868.3.579.2.593 1954 Unknown [id number] 2.16.84 0.1.745840.3.579.2.593 1954 Unknown [id number] 2.16.84 0.1.915583.3.579.2.593 1954 Unknown [id number] 2.16.84 0.1.288094.3.579.2.593 1954 Unknown [id number] 2.16.84 0.1.857146.3.579.2.593 1954 Unknown [id number] 2.16.84 0.1.783567.3.579.2.593 1954 Unknown [id number] 2.16.84 0.1.602733.3.579.2.593 1954 Unknown [id number] 2.16.84 0.1.838836.3.579.2.593 1954 Unknown [id number] 2.16.84 0.1.806927.3.579.2.593 Summary Purpose Family History No Family History Records Found Advance Directives No Advanced Directives Records Found Additional Source Comments (unrecognized sect ion and content) No Status Records Found INFORMATION SOURCE (unrecogn ized section and content) DATE CREATED AUTHOR 04/08/2023 The [facility] FOR RECORDS PERTAINING TO PATIENTS WHO ARE [...] BE BASED ON THE PRIMARY CLINICAL RECORDS. [facility]. provides no warranty or guarantee of the accuracy or completeness of information in this document.
[2024-09-12 23:00] VITALS: BP 173/105; PULSE 77; TEMP 36.6; O2SAT 96; BMI 23.7
--- NOTE | 2024-09-12 23:03 | ED_ITS ---
HPI - SOB/Dyspnea General Chief Complaint: Shortness of Breath/Dyspnea Stated Complaint: Shortness of Breath Time Seen by Provider: 09/12/24 22:59 History of Present Illness HPI Narrative: 6-year-old male presents for difficulty breathing. He has a history of COPD and he is almost run out of his albuterol for his nebulizer at home. He thinks he has 2 treatments left and he did not want to run out. He does not have a PCP and will not see 1. No fever or productive cough or chest pain. Symptoms began today. Related Data Home Medications ?Medication ?Instructions ?Recorded ?Confirmed albuterol sulfate 90 mcg/actuation 2 inh inhalation Q6H PRN shortness 03/13/24 08/25/24 aerosol inhaler of breath or wheezing Previous Rx's ?Medication ?Instructions ?Recorded losartan 100 mg tablet 100 mg PO DAILY #30 tabs 12/27/23 albuterol sulfate 2.5 mg/3 mL 2.5 mg (3 mL) inhalation Q6H PRN 05/26/24 (0.083 %) solution for nebulization shortness of breath or wheezing #90 mL loratadine 10 mg tablet (Claritin) 10 mg PO DAILY #20 tabs 05/30/24 albuterol sulfate 2.5 mg/3 mL 2.5 mg (3 mL) inhalation Q6H PRN 08/07/24 (0.083 %) solution for nebulization shortness of breath or wheezing #90 mL albuterol sulfate 90 mcg/actuation 2 inh inhalation Q4H PRN shortness 08/07/24 aerosol inhaler of breath or wheezing #8.5 grams albuterol sulfate 2.5 mg/3 mL 1.25 mg (1.5 mL) inhalation Q6H 09/04/24 (0.083 %) solution for nebulization PRN bronchospasm #75 mL albuterol sulfate 90 mcg/actuation 2 inh inhalation Q6H PRN shortness 09/04/24 aerosol inhaler of breath or wheezing #6.7 grams albuterol sulfate 2.5 mg/3 mL 2.5 mg (3 mL) inhalation Q6H PRN 09/12/24 (0.083 %) solution for nebulization shortness of breath or wheezing #90 mL Allergies Allergy/AdvReac Type Severity Reaction Status Date / Time No Known Drug Allergies Allergy Verified 08/25/24 22:49 Review of Systems ROS Narrative A ten point review of systems is negative except as noted above. [facility] Medical History (Updated 09/12/24 @ 23:48 by Diego Lilly MD) Hypokalemia ?E87.6 - Hypokalemia (ICD-10) New onset type 2 diabetes mellitus ?E11.9 - Type 2 diabetes mellitus without complications (ICD-10) Lower extremity edema ?R60.0 - Localized edema (ICD-10) Edema ?R60.9 - Edema, unspecified (ICD-10) Acute hyperglycemia ?R73.9 - Hyperglycemia, unspecified (ICD-10) Tobacco abuse ?Z72.0 - Tobacco use (ICD-10) HTN (hypertension) ?I10 - Essential (primary) hypertension (ICD-10) Community acquired pneumonia ?J18.9 - Pneumonia, unspecified organism (ICD-10) Chronic obstructive pulmonary disease ?J44.9 - Chronic obstructive pulmonary disease, unspecified (ICD-10) Acute exacerbation of chronic obstructive pulmonary disease (COPD) ?J44.1 - Chronic obstructive pulmonary disease with (acute) exacerbation (ICD-10) RLL pneumonia ?J18.9 - Pneumonia, unspecified organism (ICD-10) COPD (chronic obstructive pulmonary disease) ?J44.9 - Chronic obstructive pulmonary disease, unspecified (ICD-10) Surgical History (Updated 01/29/24 @ 06:45 by Latonia Martin RN) Hx of tonsillectomy ?Z90.89 - Acquired absence of other organs (ICD-10) Family History (Updated 12/25/23 @ 21:28 by Kym Ordaz) Mother Family history of cancer Family history of hypertension Father Family history of cancer Social History Within the past year, how often did you have a drink containing alcohol: 4 or more times a week Within the past year, how many standard drinks containing alcohol did you have on a typical day: 3 or 4 Within the past year, how often did you have six or more drinks on one occasion: less than monthly Total score: 3 Score interpretation: A score of 4 or more indicates drinking is likely to affect patient's safety. Smoking status: Current every day smoker Non-prescribed substance use: cannabis (any form) Previous occupational history: retired Highest level of school completed/degree received: high school graduate Are you now , , , , never or living with a partner: In a typical week, how many times do you talk on the telephone with family, friends, or neighbors: twice per week How often do you get together with friends or relatives: once per week How often do you attend jain or taoism services: never Do you belong to any clubs or organizations such as jain groups unions, fraternal or athletic groups, or school groups: no Total score: 1 Score interpretation: A score of less than or equal to 1 indicates the most socially isolated. Little interest or pleasure in doing things: not at all Feeling down, depressed, or hopeless: not at all Feel stressed/tense/nervous/anxious/difficulty sleeping: not at all Do you think of yourself as: straight/heterosexual Gender Identity: male Exam Narrative Exam Narrative: Nurses note and vital signs reviewed and patient is not hypoxic. General: The patient appears well and in no apparent distress. Patient is resting comfortably on cart, watching TV when I walk into the room. Skin: Warm, dry, no pallor noted. There is no rash noted. Head: Normocephalic, atraumatic Eye: Normal conjunctiva, no drainage Ears, Nose, Mouth, and Throat: oral mucosa is moist. Nares patent. Cardiovascular: Regular Rate and Rhythm Respiratory: Breath sounds are diminished but equal Back: non-tender GI: Soft and nontender Musculoskeletal: The patient has no evidence of calf tenderness, no pitting edema, symmetrical pulses noted bilaterally Neurological: A&O, normal speech Psychiatric: Cooperative Constitutional Vital Signs, click to edit/add: Last Vital Signs Temp 97.9 F 09/12/24 23:00 Pulse 70 09/12/24 23:30 Resp 18 09/12/24 23:30 BP 173/105 H 09/12/24 23:00 Pulse Ox 94 L 09/12/24 23:30 O2 Del Method Room Air 09/12/24 23:30 Course Vital Signs Vital signs: Vital Signs Temperature 97.9 F 09/12/24 23:00 Pulse Rate 77 09/12/24 23:00 Respiratory Rate 20 09/12/24 23:00 Blood Pressure 173/105 H 09/12/24 23:00 Pulse Oximetry 96 09/12/24 23:00 Oxygen Delivery Method Room Air 09/12/24 23:00 Temperature 97.9 F 09/12/24 23:00 Pulse Rate 70 09/12/24 23:30 Respiratory Rate 18 09/12/24 23:30 Blood Pressure 173/105 H 09/12/24 23:00 Pulse Oximetry 94 L 09/12/24 23:30 Oxygen Delivery Method Room Air 09/12/24 23:30 MDM - SOB/Dyspnea MDM Narrative Medical decision making narrative: He was given an aerosol treatment and feels improved. He requested and was given a prescription for his nebulizer solution. Treatment diagnosis and follow-up were discussed with the patient. Differential Diagnosis Differential diagnosis: Likely acute exacerbation of chronic obstructive airways disease Discharge Plan Discharge Chief Complaint: Shortness of Breath/Dyspnea Clinical Impression: Acute exacerbation of chronic obstructive pulmonary disease Patient Disposition: Home, Self-Care Time of Disposition Decision: 23:48 Condition: Good Mode of Transportation: Private Vehicle Prescriptions / Home Meds: New albuterol sulfate 2.5 mg /3 mL (0.083 %) solution for nebulization 2.5 mg inhalation Q6H PRN (Reason: shortness of breath or wheezing) Qty: 90 0RF No Action losartan 100 mg tablet 100 mg PO DAILY Qty: 30 11RF albuterol sulfate 90 mcg/actuation HFA aerosol inhaler 2 inh inhalation Q6H PRN (Reason: shortness of breath or wheezing) albuterol sulfate 2.5 mg /3 mL (0.083 %) solution for nebulization 2.5 mg inhalation Q6H PRN (Reason: shortness of breath or wheezing) Qty: 90 0RF albuterol sulfate 2.5 mg /3 mL (0.083 %) solution for nebulization 2.5 mg inhalation Q6H PRN (Reason: shortness of breath or wheezing) Qty: 90 0RF albuterol sulfate 90 mcg/actuation HFA aerosol inhaler 2 inh inhalation Q4H PRN (Reason: shortness of breath or wheezing) Qty: 8.5 0RF loratadine [Claritin] 10 mg tablet 10 mg PO DAILY Qty: 20 0RF albuterol sulfate 2.5 mg /3 mL (0.083 %) solution for nebulization 1.25 mg inhalation Q6H PRN (Reason: bronchospasm) Qty: 75 0RF albuterol sulfate 90 mcg/actuation HFA aerosol inhaler 2 inh inhalation Q6H PRN (Reason: shortness of breath or wheezing) Qty: 6.7 0RF Print Language: Korean Instructions: COPD (Chronic Obstructive Pulmonary Disease) (ED) Referrals: SERG DUENAS [Primary Care Provider] - 1 week
[2024-09-12] MEDS: ALBUTEROL SULFATE 2.5 MG/3 ML VIAL NEB IH (23:28)
[2024-09-12 23:30] VITALS: PULSE 70; O2SAT 94
== END 2024-09-12 23:54 | disposition home or self-care (01) ==
PROVIDERS: Emergency Provider Emergency Medicine
DX: J44.1 Chronic obstructive pulmonary disease with (acute) exacerbation (principal); F17.200 Nicotine dependence, unspecified, uncomplicated
CPT/HCPCS: 94640; 99283

== ENCOUNTER 2024-09-21 17:05 | Emergency (ER) | payer MEDICARE, SELFPAY ==
[2024-09-21] VITALS (12 sets, daily range): BP systolic 172–190; BP diastolic 68–108; PULSE 59–89; O2SAT 93–99
--- NOTE | 2024-09-21 17:13 | ECG_ITS ---
[facility] Test Date: 2024-09-21 Pat Name: CONSTANZA BARRETO Department: Room: - Gender: Male [employer]: : 1955 Requested By: YELITZA AMIN Order Number: [id number] Reading MD: CARLYN LITTLE Measurements Intervals [place] Rate: 66 P: 70 VT: 206 QRS: 23 QRSD: 110 T: 51 QT: 418 QTc: 432 Interpretive Statements 1100 Sinus rhythm 3434 Septal myocardial infarction, age undetermined 9150 abnormal ECG Compared to ECG 08/07/2024 17:22:06 Possible ischemia no longer present Myocardial infarct finding still present Electronically Signed On 09-21-2024 23:27:48 EDT by CARLYN LITTLE
--- NOTE | 2024-09-21 17:13 | XR_ITS ---
The [address] [address] Patient Name: CONSTANZA BARRETO MRN: [id number] date: 1955 Sex: M Assigned Patient Location: ER Current Patient Location: ED.MAIN Accession/Order Number: [id number] Exam Date: 09/21/2024 17:37 Report Date: 09/21/2024 18:30 At the request of: RUDDY MCGHEE Procedure: XR chest 1V EXAM: XR chest 1V at 1730 hours HISTORY: Shortness of breath COMPARISON: 08/07/2024 TECHNIQUE: AP upright portable chest x-ray FINDINGS: The heart is not enlarged and the vasculature is not distended. No acute infiltrate, effusion or pneumothorax is identified. Multiple remote rib fractures are present. The osseous structures are otherwise grossly intact. XR/XR chest 1V IMPRESSION: No acute infiltrate or evidence of cardiac decompensation. The overall appearance of the chest is essentially unchanged. Electronically authenticated by: DOMI ABBASI Date: 09/21/2024 18:30
--- NOTE | 2024-09-21 17:16 | ED_ITS ---
HPI HPI - General Adult General Chief complaint: Shortness of Breath/Dyspnea Stated complaint: SOB Time Seen by Provider: 09/21/24 17:13 Source: patient History of Present Illness HPI narrative: Patient is a 69-year-old male who is very well-known to this emergency department who presents to the ER for increasing shortness of breath today. He has no active chest pain, he reports cough without sputum production or hemoptysis. He is seen regularly in this emergency department for similar symptoms. He continues to smoke a pack of cigarettes daily. He has had no fevers or other upper respiratory symptoms. He comes to the emergency department typically requesting breathing treatments because he feels the breathing treatments in this emergency department are better than his home nebulizers. He denies any recent antibiotics or steroids. Related Data Home Medications ?Medication ?Instructions ?Recorded ?Confirmed albuterol sulfate 90 mcg/actuation 2 inh inhalation Q6H PRN shortness 03/13/24 08/25/24 aerosol inhaler of breath or wheezing Previous Rx's ?Medication ?Instructions ?Recorded losartan 100 mg tablet 100 mg PO DAILY #30 tabs 12/27/23 albuterol sulfate 2.5 mg/3 mL 2.5 mg (3 mL) inhalation Q6H PRN 05/26/24 (0.083 %) solution for nebulization shortness of breath or wheezing #90 mL loratadine 10 mg tablet (Claritin) 10 mg PO DAILY #20 tabs 05/30/24 albuterol sulfate 2.5 mg/3 mL 2.5 mg (3 mL) inhalation Q6H PRN 08/07/24 (0.083 %) solution for nebulization shortness of breath or wheezing #90 mL albuterol sulfate 90 mcg/actuation 2 inh inhalation Q4H PRN shortness 08/07/24 aerosol inhaler of breath or wheezing #8.5 grams albuterol sulfate 2.5 mg/3 mL 1.25 mg (1.5 mL) inhalation Q6H 09/04/24 (0.083 %) solution for nebulization PRN bronchospasm #75 mL albuterol sulfate 90 mcg/actuation 2 inh inhalation Q6H PRN shortness 09/04/24 aerosol inhaler of breath or wheezing #6.7 grams albuterol sulfate 2.5 mg/3 mL 2.5 mg (3 mL) inhalation Q6H PRN 09/12/24 (0.083 %) solution for nebulization shortness of breath or wheezing #90 mL azithromycin 250 mg tablet See Rx Instructions PO .COMPLEX #6 09/21/24 (Zithromax Z-Luis) tabs prednisone 20 mg tablet See Rx Instructions .Route 09/21/24 .COMPLEX #12 tabs Allergies Allergy/AdvReac Type Severity Reaction Status Date / Time No Known Drug Allergies Allergy Verified 08/25/24 22:49 Opioid HPI Opioid Management Most Recent Opioid Data: Last ORT Total Score 0 01/29/24 06:36 01/29/24 Last ORT Risk Category Low Risk 01/29/24 06:36 01/29/24 Review of Systems ROS Constitutional Denies: fever or chills Ears, nose, mouth, and throat Denies: throat pain or nasal congestion Cardiovascular Denies: chest pain Respiratory Reports: shortness of breath and cough Gastrointestinal Denies: nausea or vomiting Musculoskeletal Denies: back pain or neck pain Integumentary/Breast Denies: rash Neurological Denies: numbness in extremities or weakness in extremities Hematologic/Lymphatic Denies: easy bruising or easy bleeding [facility] Medical History (Updated 09/21/24 @ 18:37 by PALMIRA Pederson) Hypokalemia ?E87.6 - Hypokalemia (ICD-10) New onset type 2 diabetes mellitus ?E11.9 - Type 2 diabetes mellitus without complications (ICD-10) Lower extremity edema ?R60.0 - Localized edema (ICD-10) Edema ?R60.9 - Edema, unspecified (ICD-10) Acute hyperglycemia ?R73.9 - Hyperglycemia, unspecified (ICD-10) Tobacco abuse ?Z72.0 - Tobacco use (ICD-10) HTN (hypertension) ?I10 - Essential (primary) hypertension (ICD-10) Community acquired pneumonia ?J18.9 - Pneumonia, unspecified organism (ICD-10) Chronic obstructive pulmonary disease ?J44.9 - Chronic obstructive pulmonary disease, unspecified (ICD-10) Acute exacerbation of chronic obstructive pulmonary disease (COPD) ?J44.1 - Chronic obstructive pulmonary disease with (acute) exacerbation (ICD-10) RLL pneumonia ?J18.9 - Pneumonia, unspecified organism (ICD-10) COPD (chronic obstructive pulmonary disease) ?J44.9 - Chronic obstructive pulmonary disease, unspecified (ICD-10) Surgical History (Updated 01/29/24 @ 06:45 by Latonia Martin RN) Hx of tonsillectomy ?Z90.89 - Acquired absence of other organs (ICD-10) Family History (Updated 12/25/23 @ 21:28 by Kym Ordaz) Mother Family history of cancer Family history of hypertension Father Family history of cancer Social History Within the past year, how often did you have a drink containing alcohol: 4 or more times a week Within the past year, how many standard drinks containing alcohol did you have on a typical day: 3 or 4 Within the past year, how often did you have six or more drinks on one occasion: less than monthly Total score: 3 Score interpretation: A score of 4 or more indicates drinking is likely to affect patient's safety. Smoking status: Current every day smoker Non-prescribed substance use: cannabis (any form) Previous occupational history: retired Highest level of school completed/degree received: high school graduate Are you now , , , , never or living with a partner: In a typical week, how many times do you talk on the telephone with family, friends, or neighbors: twice per week How often do you get together with friends or relatives: once per week How often do you attend judaism or buddhism services: never Do you belong to any clubs or organizations such as judaism groups unions, fraternal or athletic groups, or school groups: no Total score: 1 Score interpretation: A score of less than or equal to 1 indicates the most socially isolated. Little interest or pleasure in doing things: not at all Feeling down, depressed, or hopeless: not at all Feel stressed/tense/nervous/anxious/difficulty sleeping: not at all Do you think of yourself as: straight/heterosexual Gender Identity: male Exam Narrative Exam Narrative: Gen.: Awake, alert, in no distress Head: Normocephalic, atraumatic ENT: Moist mucous membranes Respiratory: No respiratory distress, diminished lung sounds globally, smells of cigarette smoke; speaking and breathing easily Cardio: Regular rate and rhythm Extremities: Moves extremities equally, no pedal edema Psych: Normal mood and affect Neuro: No focal neuro deficit Skin: Warm, dry, intact Constitutional Vital Signs, click to edit/add: Last Vital Signs Pulse 89 09/21/24 17:28 Pulse Ox 96 09/21/24 17:28 O2 Del Method Room Air 09/21/24 17:28 Course Vital Signs Vital signs: Vital Signs Pulse Rate 89 09/21/24 17:28 Pulse Oximetry 96 09/21/24 17:28 Oxygen Delivery Method Room Air 09/21/24 17:28 Pulse Rate 89 09/21/24 17:28 Pulse Oximetry 96 09/21/24 17:28 Oxygen Delivery Method Room Air 09/21/24 17:28 Medical Decision Making MDM Narrative Medical decision making narrative: Patient with no hypoxia in the ER, no EKG changes, no complaints of chest pain. Laboratory studies reviewed and noted within normal limits. Chest x-ray is unremarkable. Patient was given breathing treatment in the ER and pulse oximetry shows 96% on room air at time of discharge. He is discharged home with azithromycin and prednisone. Follow-up with PCP and return to the ER if symptoms change or worsen SUPERVISED APC VISIT, PHYSICIAN ATTESTATION: Based on the medical record the care appears appropriate. ? Medical Records Medical records reviewed: Yes I reviewed the patient's medical records Lab Data Lab results reviewed: Yes I reviewed the patient's lab results Labs: Lab Results 09/21/24 Range/Units 17:25 WBC 7.2 (4.0-11.0) 10^3/uL RBC 4.85 (4.70-6.10) 10^6/uL Hgb 14.7 (14.0-18.0) g/dL Hct 42.6 (42.0-54.0) % MCV 87.8 (80.0-94.0) fL MCH 30.3 (25.9-34.0) pg MCHC 34.5 (29.9-35.2) g/dL RDW 13.2 (11.0-15.0) % Plt Count 184 (150-450) 10^3/uL MPV 8.9 L (9.5-13.5) fL Neut % (Auto) 66.9 (43.0-75.0) % Lymph % (Auto) 24.3 (20.5-60.0) % [place] % (Auto) 7.0 (1.7-12.0) % Eos % (Auto) 1.4 (0.9-7.0) % Baso % (Auto) 0.3 (0.2-2.0) % Neut # (Auto) 4.8 (1.4-6.5) 10^3/uL Lymph # (Auto) 1.8 (1.2-3.8) 10^3/uL [place] # (Auto) 0.5 (0.3-0.8) 10^3/uL Eos # (Auto) 0.1 (0.0-0.7) 10^3/uL Baso # (Auto) 0.0 (0.0-0.1) 10^3/uL Abs Immat Gran (auto) 0.01 (0.00-0.03) 10^3/uL Imm/Tot Granulo (auto) 0.1 (0.0-0.5) % PT 12.3 H (9.0-11.6) sec INR 1.18 VBG pH 7.514 H (7.330-7.430) VBG pCO2 36.1 L (40.0-52.0) mmHg Sodium 142 (136-145) mmol/L Potassium 3.2 L (3.5-5.1) mmol/L Chloride 103 (98-107) mmol/L Carbon Dioxide 30.9 (21.0-32.0) mmol/L Anion Gap 11.3 BUN 7.0 (7.0-18.0) mg/dL Creatinine 0.75 (0.70-1.30) mg/dL Est GFR ( Amer) >60 (>=60 mL/min/1.73m^2) Est GFR (Non-Af Amer) >60 (>=60 mL/min/1.73m^2) BUN/Creatinine Ratio 9.3 Glucose 190 H (74-106) mg/dL Calcium 8.9 (8.5-10.1) mg/dL Total Bilirubin 0.6 (0.2-1.0) mg/dL AST 23 (15-37) U/L ALT 51 (16-63) U/L Alkaline Phosphatase 86 (46-116) U/L Troponin I High Sens 22.4 (4.0-76.1) pg/mL NT-Pro-B Natriuret Pep 257.0 (<=900.0) pg/mL Total Protein 6.0 L (6.4-8.2) g/dL Albumin 3.5 (3.4-5.0) g/dL Globulin 2.5 g/dL Albumin/Globulin Ratio 1.4 Imaging Data Chest x-ray: Attestation: I have reviewed the pertinent imaging results. Radiologist's impression: ITS Impressions Chest X-Ray 09/21/24 17:13 IMPRESSION: No acute infiltrate or evidence of cardiac decompensation. The overall appearance of the chest is essentially unchanged. Electronically authenticated by: DOMI ABBASI Date: 09/21/2024 18:30 ECG Data Attestation: I personally reviewed and interpreted this ECG as follows: (Normal sinus rhythm at a rate of 66, no acute ST elevation or ectopy. EKG reviewed by attending physician) Discharge Plan Discharge Chief Complaint: Shortness of Breath/Dyspnea Clinical Impression: Dyspnea, COPD (chronic obstructive pulmonary disease) Patient Disposition: Home, Self-Care Time of Disposition Decision: 18:36 Condition: Good Prescriptions / Home Meds: New azithromycin [Zithromax Z-Luis] 250 mg tablet See Rx Instructions .ROUTE .COMPLEX Qty: 6 0RF Rx Instructions: For 250 mg dose pack: take 500 mg today (day 1), then 250 mg for 4 days (days 2-5) prednisone 20 mg tablet See Rx Instructions .ROUTE .COMPLEX Qty: 12 0RF Rx Instructions: 3 tabs daily for 2 days, then 2 tabs daily for 2 days, then 1 tab daily for 2 days No Action losartan 100 mg tablet 100 mg PO DAILY Qty: 30 11RF albuterol sulfate 90 mcg/actuation HFA aerosol inhaler 2 inh inhalation Q6H PRN (Reason: shortness of breath or wheezing) albuterol sulfate 2.5 mg /3 mL (0.083 %) solution for nebulization 2.5 mg inhalation Q6H PRN (Reason: shortness of breath or wheezing) Qty: 90 0RF albuterol sulfate 2.5 mg /3 mL (0.083 %) solution for nebulization 2.5 mg inhalation Q6H PRN (Reason: shortness of breath or wheezing) Qty: 90 0RF albuterol sulfate 90 mcg/actuation HFA aerosol inhaler 2 inh inhalation Q4H PRN (Reason: shortness of breath or wheezing) Qty: 8.5 0RF albuterol sulfate 2.5 mg /3 mL (0.083 %) solution for nebulization 2.5 mg inhalation Q6H PRN (Reason: shortness of breath or wheezing) Qty: 90 0RF loratadine [Claritin] 10 mg tablet 10 mg PO DAILY Qty: 20 0RF albuterol sulfate 2.5 mg /3 mL (0.083 %) solution for nebulization 1.25 mg inhalation Q6H PRN (Reason: bronchospasm) Qty: 75 0RF albuterol sulfate 90 mcg/actuation HFA aerosol inhaler 2 inh inhalation Q6H PRN (Reason: shortness of breath or wheezing) Qty: 6.7 0RF Print Language: Mexican Instructions: COPD (Chronic Obstructive Pulmonary Disease) (ED) Referrals: SERG DUENAS [Primary Care Provider] - 1 week
[2024-09-21] MEDS: ALBUTEROL SULFATE 2.5 MG/3 ML VIAL NEB IH (17:27)
[2024-09-21 17:32] LABS: Basophils Percent Auto 0.3 % (0.2-2.0); Eosinophils Absolute Auto 0.1 10^3/uL (0.0-0.7); Eosinophils Percent Auto 1.4 % (0.9-7.0); Hematocrit 42.6 % (42.0-54.0); Hemoglobin 14.7 g/dL (14.0-18.0); Immature Granulocytes Abs Auto 0.01 10^3/uL (0.00-0.03); Immature Granulocytes Pct Auto 0.1 % (0.0-0.5); Lymphocytes Absolute Auto 1.8 10^3/uL (1.2-3.8); Lymphocytes Percent Auto 24.3 % (20.5-60.0); Mean Corpuscular HGB Conc 34.5 g/dL (29.9-35.2); Mean Corpuscular Hemoglobin 30.3 pg (25.9-34.0); Mean Corpuscular Volume 87.8 fL (80.0-94.0); Mean Platelet Volume 8.9 fL (9.5-13.5); Monocytes Absolute Auto 0.5 10^3/uL (0.3-0.8); Neutrophils Absolute Auto 4.8 10^3/uL (1.4-6.5); Neutrophils Percent Auto 66.9 % (43.0-75.0); Platelet Count 184 10^3/uL (150-450); Red Blood Count 4.85 10^6/uL (4.70-6.10); Red Cell Distribution Width 13.2 % (11.0-15.0); White Blood Count 7.2 10^3/uL (4.0-11.0)
[2024-09-21 17:34] LABS: PCO2 VBG 36.1 mmHg (40.0-52.0); pH VBG 7.514 (7.330-7.430)
[2024-09-21 17:45] LABS: INR 1.18; Prothrombin Time 12.3 sec (9.0-11.6)
[2024-09-21 17:55] LABS: Alanine Aminotransferase 51 U/L (16-63); Albumin Globulin Ratio 1.4; Albumin Level 3.5 g/dL (3.4-5.0); Alkaline Phosphatase 86 U/L (46-116); Anion Gap 11.3; Aspartate Amino Transferase 23 U/L (15-37); BUN Creatinine Ratio 9.3; Bilirubin Total 0.6 mg/dL (0.2-1.0); Calcium 8.9 mg/dL (8.5-10.1); Carbon Dioxide 30.9 mmol/L (21.0-32.0); Chloride 103 mmol/L (98-107); Estimated GFR (African America >60 (>=60 mL/min/1.73m^2); Estimated GFR (Non-African Ame >60 (>=60 mL/min/1.73m^2); Globulin 2.5 g/dL; Glucose 190 mg/dL (74-106); Potassium 3.2 mmol/L (3.5-5.1); Sodium 142 mmol/L (136-145); Troponin I High Sensitivity 22.4 pg/mL (4.0-76.1)
--- OUTSIDE RECORDS SUMMARY | 2024-09-21 18:00 | XMS_ITS | CCD ---
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 Garima Pulliam Basophils/100 WBC (Bld) 0.3 % Normal 0.2-2.0 [facility] Comment on above: Performed By: #### C BC ####[facility] Hniircqkry[address] [place] [address]DrAdalberto Pulliam EO # 0.3 103/ul Normal 0.0-0.7 [facility] Comment on above: Performed By: #### C BC ####[facility] Fyhunzdmrx[address] [place], [place] [address]Dr. Garima Pulliam Eosinophils/100 WBC (Bld) 2.8 % Normal 0.9-7.0 [facility] Comment on above: Performed By: #### C BC ####[facility] Eedfhrwsbq[address] [place] [address]Dr. Garima Pulliam Erythrocyte distribution width (RBC) [Ratio] 13.4 % Normal 11.0-15.0 [facility] Comment on above: Performed By: #### C BC ####[facility] Seyurqzazh[address] [place] [address]Dr. Garima Pulliam Hematocrit (Bld) [Volume fraction] 45.7 % Normal 42.0-54.0 [facility] Comment on above: Performed By: #### C BC ####[facility] Begvpthiab[address] [place] [address]Dr. Garima Pulliam Hemoglobin (Bld) [Mass/Vol] 15.2 g/dL Normal 14.0-18.0 [facility] Comment on above: Performed By: #### C BC ####[facility] Ophrailpfx4[address] [place] [address]Dr. Garima Pulliam IG # 0.02 10e3/ul Normal 0.00-0.03 [facility] Comment on above: Performed By: #### C BC ####[facility] Gprnqisnef08[address] [place] [address]Dr. Garima Pulliam IG % 0.2 % Normal 0.0-0.5 [facility] Comment on above: Performed By: #### C BC ####[facility] Bokopjibyp[address] [place] [address]Dr. Garima Pulliam LYMPH # 2.1 103/ul Normal 1.2-3.8 [facility] Comment on above: Performed By: #### C BC ####[facility] Xgahmlhlfb3876 [place] [address]Dr. Garima Pulliam Lymphocytes/100 WBC (Bld) 23.7 % Normal 20.5-60.0 [facility] Comment on above: Performed By: #### C BC ####[facility] Xghoyncchg8656 [place] [address]Dr. Garima Heraclio MANUAL DIFF REQ NO Normal [facility] Comment on above: Performed By: #### C BC ####[facility] Dkvmualhlv9728 [place] [address]Dr. Garima Pulliam MCH (RBC) [Entitic mass] 30.4 pg Normal 25.9-34.0 [facility] Comment on above: Performed By: #### C BC ####[facility] Sowpmncixb7240 [place] [address]Dr. Garima Heraclio MCHC (RBC) [Mass/Vol] 33.3 g/dL Normal 29.9-35.2 [facility] Comment on above: Performed By: #### C BC ####[facility] Qssgltralr[address] [place], [place] [address]Dr. Chapisrenu Pulliam MCV (RBC) [Entitic vol] 91.4 fL Normal 80.0-94.0 [facility] Comment on above: Performed By: #### C BC ####[facility] Ccmymeutul[address] [place], [place] [address]Dr. Garima Heraclio MONO # 0.7 103/ul Normal 0.3-0.8 [facility] Comment on above: Performed By: #### C BC ####[facility] Fuxbgqkjxr[address] [place], [place] [address]Dr. Chapisrenu Pulliam Monocytes/100 WBC (Bld) 8.3 % Normal 1.7-12.0 [facility] Comment on above: Performed By: #### C BC ####[facility] Bojfbuwchd3496 [place] [address]Dr. Chapisrenu Heraclio NEUT # 5.8 103/ul Normal 1.4-6.5 [facility] Comment on above: Performed By: #### C BC ####[facility] Ctztizipuf[address] [place], [place] [address]Dr. Garima Pulliam Neutrophils/100 WBC (Bld) 64.7 % Normal 43.0-75.0 [facility] Comment on above: Performed By: #### C BC ####[facility] Fwsncgveef6805 [place] [address]Dr. Garima Pulliam Platelet mean volume (Bld) [Entitic vol] 8.6 fL Critically low 9.5-13.5 [facility] Comment on above: Performed By: #### C BC ####[facility] Jbizetiiaq4843 [place] [address]Dr. Garima Pulliam PLT 230 103/ul Normal 150-450 [facility] Comment on above: Performed By: #### C BC ####[facility] Hpmpbatkra1169 [place] [address]Dr. Chapisrenu Heraclio RBC 5.00 106/ul Normal 4.70-6.10 [facility] Comment on above: Performed By: #### C BC ####[facility] Ymeecvwiyn9723 [place] [address]Dr. Garima Heraclio WBC 9.0 103/ul Normal 4.0-11.0 [facility] Comment on above: Performed By: #### C BC ####[facility] Akafvfikne4969 [place] [address]Dr. Garima Pulliam MAGNESIUMon 04-04-2023 Magnesium [Mass/Vol] 1.8 mg/dL Normal 1.8-2.4 [facility] Comment on above: Performed By: #### M G ####[facility] Nkgwsoffjg1376 [place] [address]Dr. Chapisrenu Pulliam PROF 14(COMP METB)on 023 Albumin [Mass/Vol] 3.8 g/dL Normal 3.4-5.0 [facility] Comment on above: Performed By: #### C MP ####[facility] Jpgajahcdv2659 [place] [address]Dr. Garima Pulliam Albumin/Globulin [Mass ratio] 1.2 {ratio} Normal [facility] Comment on above: Performed By: #### C MP ####[facility] Tmtzujktdo4053 [place] [address]Dr. Garima Heraclio ALP [Catalytic activity/Vol] 84 U/L Normal 46-116 [facility] Comment on above: Performed By: #### C MP ####[facility] Oemvildebp8061 [place] [id number]. Garima Pulliam ALT [Catalytic activity/Vol] 31 U/L Normal 16-63 [facility] Comment on above: Performed By: #### C MP ####[facility] Hadtwhxhal6715 [place] [address]Dr. Garima Pulliam Anion gap [Moles/Vol] 12.2 mmol/L Normal [facility] Comment on above: Performed By: #### C MP ####[facility] Ipyycbzuhd4790 [place] [address]Dr. Garima Pulliam AST [Catalytic activity/Vol] 23 U/L Normal 15-37 [facility] Comment on above: Performed By: #### C MP ####[facility] Xvnyhgijvu[address] [place], [place] [address]Dr. Garima Pulliam Bilirubin [Mass/Vol] 0.5 mg/dL Normal 0.2-1.0 [facility] Comment on above: Performed By: #### C MP ####[facility] Rydtlbqekm[address] [place], [place] [address]Dr. Garima Pulliam Calcium [Mass/Vol] 9.2 mg/dL Normal 8.5-10.1 [facility] Comment on above: Performed By: #### C MP ####[facility] Isjbmstpil[address] [place], [place] [address]Dr. Garima Pulliam Chloride [Moles/Vol] 103 mmol/L Normal 98-107 [facility] Comment on above: Performed By: #### C MP ####[facility] Ydcldxbhny0271 [place] [address]Dr. Garima Pulliam CO2 [Moles/Vol] 28.5 mmol/L Normal 21.0-32.0 [facility] Comment on above: Performed By: #### C MP ####[facility] Dhngcntoqa[address] [place], [place] [address]Dr. Garima Pulliam Creatinine [Mass/Vol] 0.74 mg/dL Normal 0.70-1.30 [facility] Comment on above: Performed By: #### C MP ####[facility] Ycjagayiyh7232 [place] [id number]. Garima Pulliam EGFR-AF LATVIAN >60 Normal >=60 [facility] Comment on above: Performed By: #### C MP ####[facility] Tiifsnmebe3175 [place] [address]Dr. Garima Heraclio EGFR-NON AF LATVIAN >60 Normal >=60 [facility] Comment on above: Performed By: #### C MP ####[facility] Pbevmokfba8184 [place] [phone]. Garima Heraclio Globulin (S) [Mass/Vol] 3.1 g/dL Normal [facility] Comment on above: Performed By: #### C MP ####[facility] Xbwrytlrxr[address] [place], [place] [address]Dr. Garima Heraclio Glucose [Mass/Vol] 93 mg/dL Normal 74-106 [facility] Comment on above: Performed By: #### C MP ####[facility] Qpksbmfsmb[address] [place], [place] [address]Dr. Garima Heraclio Potassium [Moles/Vol] 3.7 mmol/L Normal 3.5-5.1 [facility] Comment on above: Performed By: #### C MP ####[facility] [address]jfoshzoc[address] [place], [place] [address]Dr. Garima Heraclio Protein [Mass/Vol] 6.9 g/dL Normal 6.4-8.2 [facility] Comment on above: Performed By: #### C MP ####[facility] Lyqpstxnzu[address] [place], [place] [address]Dr. Garima Heraclio Sodium [Moles/Vol] 140 mmol/L Normal 136-145 [facility] Comment on above: Performed By: #### C MP ####[facility] Inxcshnjgk[address] [place], [place] [address]Dr. Garima Pulliam Urea nitrogen [Mass/Vol] 8.0 mg/dL Normal 7.0-18.0 [facility] Comment on above: Performed By: #### C MP ####[facility] Plvdihnkbs[address] [place], [place] [address]Dr. Garima Pulliam Urea nitrogen/Creatinine [Mass ratio] 10.8 mg/mg Normal [facility] Comment on above: Performed By: #### C DAVID ####[facility] Mfdwsnuzjv1636 [place] [address]Dr. Garima Pulliam AMMONIAon 03-30-2023 Ammonia (P) [Moles/Vol] 11 umol/L Normal 11-32 [facility] Comment on above: Performed By: #### A MM ####[facility] Smsukmyfdq[address] [place], [place] [address]Dr. Garima Pulliam CARDIAC NASH ADMITon 023 CK [Catalytic activity/Vol] 232 U/L Normal 39-308 [facility] Comment on above: Performed By: #### C NANCY HERNANDEZ ####[facility] Fszgusxrxr1272 [place] [address]Dr. Chapisrenu Pulliam CK.MB [Mass/Vol] 4.83 ng/mL Critically high <=3.60 [facility] Comment on above: Performed By: #### C NANCY HERNANDEZ ####[facility] Uzwcqblzps[address] [place], [place] [address]Dr. Garima Pulliam HSTROP 10.5 pg/mL Normal 4.0-76.1 [facility] Comment on above: Result Comment: CUT- OFF POINTS HAVE BEEN ESTABLISHED BASED ON THE FOURTH UNIVERSAL DEFINITIONS OF MYOCARDIALINFARCTION. THE UPPER REFERENCE LIMIT (URL) OF TROPONIN, DEFINED THE 99TH PERCENTILE OFcTnI DISTRIBUTION IN A REFERENCE POPULATION, HAS BEEN CONFIRMED THE DECISION THRESHOLDFOR NC DIAGNOSIS. Performed By: #### C NANCY HERNANDEZ ####[facility] Lqdyknyvvh[address] [place], [place] [address]Dr. Garima Heraclio DORIS 79 ng/mL Normal 16-96 [facility] Comment on above: Performed By: #### C NANCY HERNANDEZ ####[facility] Vwquzizrvy[address] [place], [place] [address]Dr. Garima Heraclio CBC AUTO DIFFon 03-30-2023 BASO # 0.0 103/ul Normal 0.0-0.1 [facility] Comment on above: Performed By: #### C BC ####[facility] Bbrrquqzfh3212 [place] [id number]. Garima Pulliam Basophils/100 WBC (Bld) 0.1 % Critically low 0.2-2.0 [facility] Comment on above: Performed By: #### C BC ####[facility] Udjdvxfcpn5151 [place] [phone]. Garima Pulliam EO # 0.3 103/ul Normal 0.0-0.7 [facility] Comment on above: Performed By: #### C BC ####[facility] L[address]wmcvtzv[address] [place], [place] [id number]. Garima Pulliam Eosinophils/100 WBC (Bld) 3.3 % Normal 0.9-7.0 [facility] Comment on above: Performed By: #### C BC ####[facility] L[address]choqbzwp[address] [place], [place] [id number]. Garima Pulliam Erythrocyte distribution width (RBC) [Ratio] 13.5 % Normal 11.0-15.0 [facility] Comment on above: Performed By: #### C BC ####[facility] Aikkkkymqr[address] [place], [place] [address]Dr. Garima Pulliam Hematocrit (Bld) [Volume fraction] 42.9 % Normal 42.0-54.0 [facility] Comment on above: Performed By: #### C BC ####[facility] [address]cxcimybkv[address] [place], [place] [address]Dr. Garima Pulliam Hemoglobin (Bld) [Mass/Vol] 13.9 g/dL Critically low 14.0-18.0 [facility] Comment on above: Performed By: #### C BC ####[facility] Kigyqhdvos5[address] [place] [id number]. Garima Pulliam IG # 0.01 10e3/ul Normal 0.00-0.03 [facility] Comment on above: Performed By: #### C BC ####[facility] [address]ezodzkgck[address] [place], [place] [address]Dr. Garima Pulliam IG % 0.1 % Normal 0.0-0.5 [facility] Comment on above: Performed By: #### C BC ####[facility] Jzncznbkti6906 [place] [phone]. Garima Pulliam LYMPH # 1.7 103/ul Normal 1.2-3.8 [facility] Comment on above: Performed By: #### C BC ####[facility] Suseeraqij9063 [place], [place] [address]Fn. Garima Pulliam Lymphocytes/100 WBC (Bld) 22.8 % Normal 20.5-60.0 [facility] Comment on above: Performed By: #### C BC ####[facility] Bmdbhnbzzi9998 [place] [phone]. Garima Heraclio MANUAL DIFF REQ NO Normal [facility] Comment on above: Performed By: #### C BC ####[facility] Yijgvkafdg2363 [place] [phone]. Garima Heraclio MCH (RBC) [Entitic mass] 30.5 pg Normal 25.9-34.0 [facility] Comment on above: Performed By: #### C BC ####[facility] Knztrdasfo0945 [place] [phone]. Garima Pulliam MCHC (RBC) [Mass/Vol] 32.4 g/dL Normal 29.9-35.2 [facility] Comment on above: Performed By: #### C BC ####[facility] Inqdoucmig4509 [place] [phone]. Garima Heraclio MCV (RBC) [Entitic vol] 94.1 fL Critically high 80.0-94.0 [facility] Comment on above: Performed By: #### C BC ####[facility] Otrgphedou0993 [place] [id number]. Garima Heraclio MONO # 0.7 103/ul Normal 0.3-0.8 [facility] Comment on above: Performed By: #### C BC ####[facility] Xrwwmqidqs7167 [place] [phone]. Garima Heraclio Monocytes/100 WBC (Bld) 8.6 % Normal 1.7-12.0 [facility] Comment on above: Performed By: #### C BC ####[facility] Vmsqcyjojl3578 [place] [phone]. Garima Pulliam NEUT # 4.9 103/ul Normal 1.4-6.5 [facility] Comment on above: Performed By: #### C BC ####[facility] Rcxsnlcabc8726 [place] [phone]. Garima Pulliam Neutrophils/100 WBC (Bld) 65.1 % Normal 43.0-75.0 [facility] Comment on above: Performed By: #### C BC ####[facility] Fstrqlpdze8028 [place] [phone]. Garima Pulliam Platelet mean volume (Bld) [Entitic vol] 8.5 fL Critically low 9.5-13.5 [facility] Comment on above: Performed By: #### C BC ####[facility] Rmrwecoieh3736 [place] [phone]. Garima Pulliam PLT 219 103/ul Normal 150-450 [facility] Comment on above: Performed By: #### C BC ####[facility] Mbyzdpylfq4236 [place] [phone]. Garima Pulliam RBC 4.56 106/ul Critically low 4.70-6.10 [facility] Comment on above: Performed By: #### C BC ####[facility] Mtxnqhdurj8396 [place] [phone]. Garima Pulliam WBC 7.6 103/ul Normal 4.0-11.0 [facility] Comment on above: Performed By: #### C BC ####[facility] Rbjdkwafou4231 [place] [phone]. Garima Pulliam LACTATE/LACTIC ACIDon 2022 Lactate [Moles/Vol] 1.2 mmol/L Normal 0.4-2.0 [facility] Comment on above: Performed By: #### L ACT ####[facility] Rjlkktyoqy4123 [place] [phone]. Garima Pulliam MAGNESIUMon 03-30-2023 Magnesium [Mass/Vol] 1.8 mg/dL Normal 1.8-2.4 [facility] Comment on above: Performed By: #### M G ####[facility] Pkxckoplxn4604 [place] [address]Dr. Garima Pulliam PROF 14(COMP METB)on 023 Albumin [Mass/Vol] 3.5 g/dL Normal 3.4-5.0 [facility] Comment on above: Performed By: #### C DAVID, CMAANA ROSA ####[facility] Vawzoukuni[address] [place] [address]Dr. Garima Pulliam Albumin/Globulin [Mass ratio] 1.2 {ratio} Normal [facility] Comment on above: Performed By: #### C DAVID, CMAANA ROSA ####[facility] Vagtjovjte7143 [place] [address]Dr. Garima Pulliam ALP [Catalytic activity/Vol] 85 U/L Normal 46-116 [facility] Comment on above: Performed By: #### C DAVID, CMAANA ROSA ####[facility] Hbmblzauim[address] [place], [place] [address]Dr. Garima Pulliam ALT [Catalytic activity/Vol] 29 U/L Normal 16-63 [facility] Comment on above: Performed By: #### C DAVID, CMAANA ROSA ####[facility] Mjzilghphg5443 [place] [address]Dr. Garima Pulliam Anion gap [Moles/Vol] 8.0 mmol/L Normal [facility] Comment on above: Performed By: #### C DAVID, CMAANA ROSA ####[facility] Hyvfodbfln6891 [place] [address]Dr. Garima Pulliam AST [Catalytic activity/Vol] 18 U/L Normal 15-37 [facility] Comment on above: Performed By: #### C DAVID, CMADM ####[facility] Vvznjovevz6078 [place] [address]Dr. Garima Pulliam Bilirubin [Mass/Vol] 0.4 mg/dL Normal 0.2-1.0 [facility] Comment on above: Performed By: #### C DAVID, CMADM ####[facility] Mxyjweunif1276 [place] [address]Dr. Garima Pulliam Calcium [Mass/Vol] 8.8 mg/dL Normal 8.5-10.1 [facility] Comment on above: Performed By: #### C DAVID, NANCY ####[facility] Ycrzmnuczl4860 [place] [address]Dr. Chapisrenu Pulliam Chloride [Moles/Vol] 108 mmol/L Critically high 98-107 [facility] Comment on above: Performed By: #### C DAVID, NANCY ####[facility] Balbmfrrcr8442 [place] [address]Dr. Garima Pulliam CO2 [Moles/Vol] 29.6 mmol/L Normal 21.0-32.0 [facility] Comment on above: Performed By: #### C NANCY HERNANDEZ ####[facility] Gwmntmwxac[address] [place], [place] [address]Dr. Garima Pulliam Creatinine [Mass/Vol] 0.77 mg/dL Normal 0.70-1.30 [facility] Comment on above: Performed By: #### C NANCY HERNANDEZ ####[facility] Kzhghiznum[address] [place], [place] [address]Dr. Garima Heraclio EGFR-AF LATVIAN >60 Normal >=60 [facility] Comment on above: Performed By: #### C NANCY HERNANDEZ ####[facility] Fonvvfqsuu[address] [place], [place] [address]Dr. Garima Heraclio EGFR-NON AF LATVIAN >60 Normal >=60 [facility] Comment on above: Performed By: #### C NANCY HERNANDEZ ####[facility] Ttbfiujzdg6231 [place] [address]Dr. Garima Pulliam Globulin (S) [Mass/Vol] 2.8 g/dL Normal [facility] Comment on above: Performed By: #### C NANCY HERNANDEZ ####[facility] Yzbwrutpys1037 [place] [address]Dr. Garima Pulliam Glucose [Mass/Vol] 207 mg/dL Critically high 74-106 [facility] Comment on above: Performed By: #### C NANCY HERNANDEZ ####[facility] Kubsqdjxbs[address] [place], [place] [address]Dr. Garima Pulliam Potassium [Moles/Vol] 4.6 mmol/L Normal 3.5-5.1 [facility] Comment on above: Performed By: #### C DAVID, NANCY ####[facility] Qohqvzobby6349 [place] [address]Dr. Garima Pulliam Protein [Mass/Vol] 6.3 g/dL Critically low 6.4-8.2 [facility] Comment on above: Performed By: #### C DAVID, NANCY ####[facility] Nbdalcyuoh7318 [place] [address]Dr. Garima Pulliam Sodium [Moles/Vol] 141 mmol/L Normal 136-145 [facility] Comment on above: Performed By: #### C DAVID, NANCY ####[facility] Mricgigmfo4256 [place] [address]Dr. Garima Pulliam Urea nitrogen [Mass/Vol] 9.0 mg/dL Normal 7.0-18.0 [facility] Comment on above: Performed By: #### C DAVID, NANCY ####[facility] Vilijcgvxe[address]118 [place] [address]Dr. Garima Pulliam Urea nitrogen/Creatinine [Mass ratio] 11.7 mg/mg Normal [facility] Comment on above: Performed By: #### C DAVID, NANCY ####[facility] Ljwyuuwuxd7910 [place] [address]Dr. Garima Pulliam XR CHEST 1 Von 03-30-2023 XR CHEST 1 V Normal [facility] BNPon 03-27-2023 Natriuretic peptide B (Bld) [Mass/Vol] 251.0 pg/mL Normal <=900.0 [facility] Comment on above: Performed By: #### C MP, BNP, LIPID ####[facility] Jwaxftobpo[address] [place] [address]Dr. Garima Pulliam GLYCOHEMOGLOBIN A1Con 2022 ADA RECOMMENDATION SEE BELOW Normal [facility] Comment on above: Result Comment: ADA RECOMMENDED LIMIT 4.0 - 6.0 ADA THERAPEUTIC TARGET < 7.0 ACTION SUGGESTED > 7.0 Performed By: #### A 1C ####[facility] Qxhlpkewzw2855 [place] [address]Dr. Garima Pulliam Glucose [Mass/Vol] 180 mg/dL Normal [facility] Comment on above: Performed By: #### A 1C ####[facility] Ialpymezvu[address] [place], [place] [address]Dr. Chapisrenu Pulliam HbA1c (Bld) [Mass fraction] 7.9 % Critically high 4.5-6.2 [facility] Comment on above: Performed By: #### A 1C ####[facility] Pfrxhdowlz[address] [place], [place] [address]Dr. Garima Pulliam HEMOGRAM AND PLATELon 2022 Hematocrit (Bld) [Volume fraction] 45.7 % Normal 42.0-54.0 [facility] Comment on above: Performed By: #### H H ####[facility] Obdpjcshyw[address] [place], [place] [address]Dr. Garima Pulliam Hemoglobin (Bld) [Mass/Vol] 15.1 g/dL Normal 14.0-18.0 [facility] Comment on above: Performed By: #### H H ####[facility] [address]zmocygt[address] [place], [place] [address]Dr. Garima Pulliam MCH (RBC) [Entitic mass] 30.0 pg Normal 25.9-34.0 [facility] Comment on above: Performed By: #### H H ####[facility] Jouysxnbyc[address] [place], [place] [address]Dr. Garima Pulliam MCHC (RBC) [Mass/Vol] 33.0 g/dL Normal 29.9-35.2 [facility] Comment on above: Performed By: #### H H ####[facility] [address]so[address]iv[address] [place], [place] [address]Dr. Garima Pulliam MCV (RBC) [Entitic vol] 90.7 fL Normal 80.0-94.0 [facility] Comment on above: Performed By: #### H H ####[facility] Ecpsvzzypm[address] [place], [place] [address]Dr. Garima Pulliam PLT 222 103/ul Normal 150-450 [facility] Comment on above: Performed By: #### H H ####[facility] [address]reb[address] [place] [id number]. Garima Pullaim RBC 5.04 106/ul Normal 4.70-6.10 [facility] Comment on above: Performed By: #### H H ####[facility] Sducnpvqar[address] [place] [phone]. Garima Pulliam WBC 8.7 103/ul Normal 4.0-11.0 [facility] Comment on above: Performed By: #### H H ####[facility] Lanvmyhxov[address] [place] [phone]. Garima Pulliam LIPID PROFILEon 03-27-2023 CHOL-HDL RATIO NORM SEE BELOW Normal [facility] Comment on above: Result Comment: 3.3 - 4.4 LOW RISK 4.4 - 7.1 AVERAGE RISK 7.1 - 11.0 MODERATE RISK >11.0 HIGH RISK Performed By: #### C MP, BNP, LIPID ####[facility] Ovfloztq[address] [place] [address]Dr. Garima Pulliam Cholesterol [Mass/Vol] 113 mg/dL Normal <=200 [facility] Comment on above: Performed By: #### C MP, BNP, LIPID ####[facility] Vgpketrdwk[address] [place] [address]Dr. Garima Pulliam Cholesterol in HDL [Mass/Vol] 51 mg/dL Normal 40-60 [facility] Comment on above: Performed By: #### C MP, BNP, LIPID ####[facility] Nfjccwrhth[address] [place] [address]Dr. Garima Pulliam Cholesterol in LDL [Mass/Vol] 49.8 mg/dL Normal [facility] Comment on above: Performed By: #### C MP, BNP, LIPID ####[facility] Fwcfhotqhr[address] [place] [address]Dr. Garima Pulliam Cholesterol.total/Cho lesterol in HDL [Mass ratio] 2.2 {ratio} Normal [facility] Comment on above: Performed By: #### C MP, BNP, LIPID ####[facility] Mfpfrrmceq69[address] [place] [address]Dr. Garima Pulliam HDL NORMAL > or = 60 mg/dl - LOW CARDIOVASCULAR RISK <40 mg/dl - HIGH CARDIOVASCULAR RISK Normal [facility] Comment on above: Performed By: #### C MP, BNP, LIPID ####[facility] Usowaeowvm[address] [place] [address]Dr. Garima Pulliam LDL CALC NORMAL SEE BELOW Normal [facility] Comment on above: Result Comment: <100 mg/dl OPTIMAL 100 - 129 mg/dl NEAR OR ABOVE OPTIMAL 130 - 159 mg/dl BORDERLINE HIGH 160 - 189 mg/dl HIGH >190 mg/dl VERY HIGH Performed By: #### C MP, BNP, LIPID ####[facility] Frlsswylcv69[address] [place] [address]Dr. Garima Pulliam Triglyceride [Mass/Vol] 61 mg/dL Normal <=150 [facility] Comment on above: Performed By: #### C MP, BNP, LIPID ####[facility] Zelxkuqelh[address] [place] [address]Dr. Garima Pulliam VLDL CALC 12.2 mg/dL Normal [facility] Comment on above: Performed By: #### C MP, BNP, LIPID ####[facility] Kthavwinkn[address] [place] [address]Dr. Garima Pulliam PROF 14(COMP METB)on 023 Albumin [Mass/Vol] 3.5 g/dL Normal 3.4-5.0 [facility] Comment on above: Performed By: #### C MP, BNP, LIPID ####[facility] Cbcimrgphv80[address] [place] [address]Dr. Garima Pulliam Albumin/Globulin [Mass ratio] 1.2 {ratio} Normal [facility] Comment on above: Performed By: #### C MP, BNP, LIPID ####[facility] Loxzaxpzxc[address] [place] [address]Dr. Garima Pulliam ALP [Catalytic activity/Vol] 82 U/L Normal 46-116 [facility] Comment on above: Performed By: #### C MP, BNP, LIPID ####[facility] Dqzdcqhczb6[address] [place] [address]Dr. Garima Pulliam ALT [Catalytic activity/Vol] 33 U/L Normal 16-63 [facility] Comment on above: Performed By: #### C MP, BNP, LIPID ####[facility] Zlakxpmjlx2606 [place] [address]Dr. Garima Pulliam Anion gap [Moles/Vol] 9.9 mmol/L Normal [facility] Comment on above: Performed By: #### C MP, BNP, LIPID ####[facility] Imysobvsdl9155 [place] [address]Dr. Garima Pulliam AST [Catalytic activity/Vol] 24 U/L Normal 15-37 [facility] Comment on above: Performed By: #### C MP, BNP, LIPID ####[facility] Uyehxsxzju7087 [place] [address]Dr. Garima Pulliam Bilirubin [Mass/Vol] 0.6 mg/dL Normal 0.2-1.0 [facility] Comment on above: Performed By: #### C MP, BNP, LIPID ####[facility] Zmalusimue[address] [place] [address]Dr. Garima Pulliam Calcium [Mass/Vol] 9.2 mg/dL Normal 8.5-10.1 [facility] Comment on above: Performed By: #### C MP, BNP, LIPID ####[facility] Ipaoopquza8533 [place] [address]Dr. Garima Pulliam Chloride [Moles/Vol] 106 mmol/L Normal 98-107 [facility] Comment on above: Performed By: #### C MP, BNP, LIPID ####[facility] Wnwwxoptlx6525 [place] [address]Dr. Garima Pulliam CO2 [Moles/Vol] 32.3 mmol/L Critically high 21.0-32.0 [facility] Comment on above: Performed By: #### C MP, BNP, LIPID ####[facility] Jnsbutbhlf3360 [place] [address]Dr. Garima Pulliam Creatinine [Mass/Vol] 0.70 mg/dL Normal 0.70-1.30 [facility] Comment on above: Performed By: #### C MP, BNP, LIPID ####[facility] Dbvkifpigb3452 [place] [phone]. Garima Pulliam EGFR-AF LATVIAN >60 Normal >=60 [facility] Comment on above: Performed By: #### C MP, BNP, LIPID ####[facility] Ywymgjklax7328 [place] [phone]. Garima Pulliam EGFR-NON AF LATVIAN >60 Normal >=60 [facility] Comment on above: Performed By: #### C MP, BNP, LIPID ####[facility] Buemuqtwrf5186 [place] [address]Dr. Garima Pulliam Globulin (S) [Mass/Vol] 2.9 g/dL Normal [facility] Comment on above: Performed By: #### C MP, BNP, LIPID ####[facility] Jkbhdsfuth5399 [place] [address]Dr. Garima Pulliam Glucose [Mass/Vol] 111 mg/dL Critically high 74-106 [facility] Comment on above: Performed By: #### C MP, BNP, LIPID ####[facility] Odbfpdqfxw2660 [place] [address]Dr. Garima Pulliam Potassium [Moles/Vol] 4.2 mmol/L Normal 3.5-5.1 [facility] Comment on above: Performed By: #### C MP, BNP, LIPID ####[facility] Tjojkxrlhy5537 [place] [address]Dr. Garima Pulliam Protein [Mass/Vol] 6.4 g/dL Normal 6.4-8.2 [facility] Comment on above: Performed By: #### C MP, BNP, LIPID ####[facility] Cszlyvrras3827 [place] [address]Dr. Garima Pulliam Sodium [Moles/Vol] 144 mmol/L Normal 136-145 [facility] Comment on above: Performed By: #### C MP, BNP, LIPID ####[facility] Tfqhhbpvxl6908 [place] [address]Dr. Garima Pulliam Urea nitrogen [Mass/Vol] 7.0 mg/dL Normal 7.0-18.0 [facility] Comment on above: Performed By: #### C MP, BNP, LIPID ####[facility] [address]usjtz[address] [place], [place] [address]Dr. Garima Pulliam Urea nitrogen/Creatinine [Mass ratio] 10.0 mg/mg Normal [facility] Comment on above: Performed By: #### C MP, BNP, LIPID ####[facility] Leofqicshz[address] [place], [place] [address]Dr. Garima Pulliam BNPon 03-22-2023 Natriuretic peptide B (Bld) [Mass/Vol] 103.0 pg/mL Normal <=900.0 [facility] Comment on above: Performed By: #### B CLIENT SERVICE MANAGER, BMP ####[facility] Ssvygjluwb[address] [place], [place] [address]Dr. Garima Pulliam CBC AUTO DIFFon 03-22-2023 BASO # 0.0 103/ul Normal 0.0-0.1 [facility] Comment on above: Performed By: #### C BC ####[facility] Sorpwfbjhv[address] [place], [place] [address]Dr. Garima Heraclio Basophils/100 WBC (Bld) 0.3 % Normal 0.2-2.0 [facility] Comment on above: Performed By: #### C BC ####[facility] Bumbzqaecl[address] [place], [place] [address]Dr. Garima Pulliam EO # 0.2 103/ul Normal 0.0-0.7 [facility] Comment on above: Performed By: #### C BC ####[facility] Iwedjrjfig[address] [place], [place] [address]Dr. Garima Pulliam Eosinophils/100 WBC (Bld) 2.2 % Normal 0.9-7.0 [facility] Comment on above: Performed By: #### C BC ####[facility] Cwdlltafin[address] [place], [place] [address]Dr. Garima Pulliam Erythrocyte distribution width (RBC) [Ratio] 13.2 % Normal 11.0-15.0 [facility] Comment on above: Performed By: #### C BC ####[facility] Vddrbfklaa7948 [place] [phone]. Garima Pulliam Hematocrit (Bld) [Volume fraction] 43.4 % Normal 42.0-54.0 [facility] Comment on above: Performed By: #### C BC ####[facility] Jtuxjtqzeb37[address] [place] [address]Dr. Garima Heraclio Hemoglobin (Bld) [Mass/Vol] 14.3 g/dL Normal 14.0-18.0 [facility] Comment on above: Performed By: #### C BC ####[facility] Cuvpjkeoii80[address] [place] [address]Dr. Garima Pulliam IG # 0.02 10e3/ul Normal 0.00-0.03 [facility] Comment on above: Performed By: #### C BC ####[facility] Llmlkbbvjr9175 [place] [address]Dr. Garima Pulliam IG % 0.3 % Normal 0.0-0.5 [facility] Comment on above: Performed By: #### C BC ####[facility] Nftwlyycis7004 [place] [address]Dr. Chapisrenu Pulliam LYMPH # 2.0 103/ul Normal 1.2-3.8 [facility] Comment on above: Performed By: #### C BC ####[facility] Akxhtaytsb6368 [place] [address]Dr. Chapisrenu Pulliam Lymphocytes/100 WBC (Bld) 24.8 % Normal 20.5-60.0 [facility] Comment on above: Performed By: #### C BC ####[facility] Hpecvxegcx1474 [place] [address]Dr. Chapisrenu Pulliam MANUAL DIFF REQ NO Normal [facility] Comment on above: Performed By: #### C BC ####[facility] Gnmbrdvcbu3555 [place] [address]Dr. Garima Heraclio MCH (RBC) [Entitic mass] 30.0 pg Normal 25.9-34.0 [facility] Comment on above: Performed By: #### C BC ####[facility] [address] [place], [place] [address]Dr. Garima Pulliam MCHC (RBC) [Mass/Vol] 32.9 g/dL Normal 29.9-35.2 [facility] Comment on above: Performed By: #### C BC ####[facility] Medunfpwpw6667 [place] [phone]. Garima Pulliam MCV (RBC) [Entitic vol] 91.0 fL Normal 80.0-94.0 [facility] Comment on above: Performed By: #### C BC ####[facility] Jsasqcwxqq1982 [place] [phone]. Garima Heraclio MONO # 0.8 103/ul Normal 0.3-0.8 [facility] Comment on above: Performed By: #### C BC ####[facility] Rnoehldmyh2901 [place] [address]Dr. Chapisrenu Pulliam Monocytes/100 WBC (Bld) 9.7 % Normal 1.7-12.0 [facility] Comment on above: Performed By: #### C BC ####[facility] Ocngddxjif7136 [place] [address]Dr. Garima Pulliam NEUT # 4.9 103/ul Normal 1.4-6.5 [facility] Comment on above: Performed By: #### C BC ####[facility] Hevhocbmkr2591 [place] [phone]. Garima Heraclio Neutrophils/100 WBC (Bld) 62.7 % Normal 43.0-75.0 [facility] Comment on above: Performed By: #### C BC ####[facility] Csbvltmbif2618 [place] [phone]. Garima Heraclio Platelet mean volume (Bld) [Entitic vol] 8.8 fL Critically low 9.5-13.5 [facility] Comment on above: Performed By: #### C BC ####[facility] Bnizpuqvqh1869 [place] [phone]. Garima Heraclio PLT 198 103/ul Normal 150-450 [facility] Comment on above: Performed By: #### C BC ####[facility] Snklhakfnm5881 [place] [phone]. Garima Heraclio RBC 4.77 106/ul Normal 4.70-6.10 [facility] Comment on above: Performed By: #### C BC ####[facility] Ybimwljjqb6299 [place] [phone]. Garima Heraclio WBC 7.9 103/ul Normal 4.0-11.0 [facility] Comment on above: Performed By: #### C BC ####[facility] Iuyfwtneuu1638 [place] [phone]. Garima Heraclio D-DIMERon 03-22-2023 D-DIMER 0.85 mg/L FEU Critically high <=0.59 [facility] Comment on above: Performed By: #### D DIM ####[facility] Lucyqrqzvm9682 [place] [address]Dr. Garima Pulliam D-DIMER COMMENTS SEE BELOW Normal [facility] Comment on above: Result [...] generalized hospitalization. Performed By: #### D DIM ####[facility] Otekqxkvoy[address] [place], [place] [address]Dr. Garima Pulliam PROF CHEM 8 (BAS METB)on Anion gap [Moles/Vol] 6.9 mmol/L Normal [facility] Comment on above: Performed By: #### B CLIENT SERVICE MANAGER, BMP ####[facility] Nbbkgtqwrk8978 [place] [address]Dr. Garima Pulliam Calcium [Mass/Vol] 8.9 mg/dL Normal 8.5-10.1 [facility] Comment on above: Performed By: #### B CLIENT SERVICE MANAGER, BMP ####[facility] Vvojpwrtgx8716 [place] [address]Dr. Garima Pulliam Chloride [Moles/Vol] 101 mmol/L Normal 98-107 [facility] Comment on above: Performed By: #### B CLIENT SERVICE MANAGER, BMP ####[facility] Izrxesknkd23[address] [place], [place] [address]Dr. Chapisrenu Heraclio CO2 [Moles/Vol] 30.7 mmol/L Normal 21.0-32.0 [facility] Comment on above: Performed By: #### B CLIENT SERVICE MANAGER, BMP ####[facility] Lrbplximdy26[address] [place], [place] [address]Dr. Garima Pulliam Creatinine [Mass/Vol] 0.82 mg/dL Normal 0.70-1.30 [facility] Comment on above: Performed By: #### B CLIENT SERVICE MANAGER, BMP ####[facility] Dhvyzamotm01[address] [place], [place] [address]Dr. Garima Pulliam EGFR-AF LATVIAN >60 Normal >=60 [facility] Comment on above: Performed By: #### B CLIENT SERVICE MANAGER, BMP ####[facility] Eoquctjtqt[address] [place], [place] [address]Dr. Chapisrenu Heraclio EGFR-NON AF LATVIAN >60 Normal >=60 [facility] Comment on above: Performed By: #### B CLIENT SERVICE MANAGER, BMP ####[facility] Itzevnmdvj[address] [place], [place] [address]Dr. Garima Pulliam Glucose [Mass/Vol] 339 mg/dL Critically high 74-106 [facility] Comment on above: Performed By: #### B CLIENT SERVICE MANAGER, BMP ####[facility] Iscsnzbpqy[address] [place], [place] [address]Dr. Garima Pulliam Potassium [Moles/Vol] 3.6 mmol/L Normal 3.5-5.1 [facility] Comment on above: Performed By: #### B CLIENT SERVICE MANAGER, BMP ####[facility] Jscvebdpqw[address] [place], [place] [address]Dr. Garima Pulliam Sodium [Moles/Vol] 135 mmol/L Critically low 136-145 [facility] Comment on above: Performed By: #### B CLIENT SERVICE MANAGER, BMP ####[facility] Utxgeaqybo[address] [place], [place] [address]Dr. Garima Pulliam Urea nitrogen [Mass/Vol] 11.0 mg/dL Normal 7.0-18.0 [facility] Comment on above: Performed By: #### B CLIENT SERVICE MANAGER, BMP ####[facility] Bzfercdvpe[address] [place], [place] [address]Dr. Garima Pulliam Urea nitrogen/Creatinine [Mass ratio] 13.4 mg/mg Normal [facility] Comment on above: Performed By: #### B CLIENT SERVICE MANAGER, BMP ####[facility] Ysezhxrlvn66[address] [place], [place] [address]Dr. Garima Pulliam US VERONICA DOP LEG BILon 023 US VERONICA DOP LEG BENOIT Normal [facility] BNPon 03-18-2023 Natriuretic peptide B (Bld) [Mass/Vol] 226.0 pg/mL Normal <=900.0 [facility] Comment on above: Performed By: #### B CLIENT SERVICE MANAGER, BMP ####[facility] Hydwjubxvt[address] [place], [place] [address]Dr. Garima Pulliam CBC AUTO DIFFon 03-18-2023 BASO # 0.0 103/ul Normal 0.0-0.1 [facility] Comment on above: Performed By: #### C BC ####[facility] Rtefgebhkd[address] [place], [place] [address]Dr. Garima Heraclio Basophils/100 WBC (Bld) 0.2 % Normal 0.2-2.0 [facility] Comment on above: Performed By: #### C BC ####[facility] Ydnygbfibg[address] [place], [place] [address]Dr. Garima Pulliam EO # 0.3 103/ul Normal 0.0-0.7 [facility] Comment on above: Performed By: #### C BC ####[facility] Twhhsbiqiy45[address] [place], [place] [address]Dr. Garima Heraclio Eosinophils/100 WBC (Bld) 2.5 % Normal 0.9-7.0 [facility] Comment on above: Performed By: #### C BC ####[facility] Soynxtnhqk[address] [place], [place] [address]Dr. Garima Heraclio Erythrocyte distribution width (RBC) [Ratio] 13.2 % Normal 11.0-15.0 [facility] Comment on above: Performed By: #### C BC ####[facility] Peqjtpcwhp1142 [place] [address]DrAdalberto Pulliam Hematocrit (Bld) [Volume fraction] 45.8 % Normal 42.0-54.0 [facility] Comment on above: Performed By: #### C BC ####[facility] Kpjsmksgnc5920 [place] [address]DrAdalberto Pulliam Hemoglobin (Bld) [Mass/Vol] 15.3 g/dL Normal 14.0-18.0 [facility] Comment on above: Performed By: #### C BC ####[facility] Zgejxtbuyz4[address] [place], [place] [address]DrAdalberto Pulliam IG # 0.02 10e3/ul Normal 0.00-0.03 [facility] Comment on above: Performed By: #### C BC ####[facility] Ioyyyahudr[address] [place], [place] [address]DrAdalberto Pulliam IG % 0.2 % Normal 0.0-0.5 [facility] Comment on above: Performed By: #### C BC ####[facility] Nbdwpvlaac[address] [place], [place] [address]DrAdalberto Pulliam LYMPH # 1.8 103/ul Normal 1.2-3.8 [facility] Comment on above: Performed By: #### C BC ####[facility] Gukfblcypr97[address] [place], [place] [address]DrAdalberto Pulliam Lymphocytes/100 WBC (Bld) 18.3 % Critically low 20.5-60.0 [facility] Comment on above: Performed By: #### C BC ####[facility] Vjeorqwnrm[address] [place], [place] [address]DrAdalberto Pulliam MANUAL DIFF REQ NO Normal [facility] Comment on above: Performed By: #### C BC ####[facility] Yqriavnlqg9060 [place] [address]DrAdalberto Pulliam MCH (RBC) [Entitic mass] 30.5 pg Normal 25.9-34.0 [facility] Comment on above: Performed By: #### C BC ####[facility] Nfvsdbowvo4562 [place] [address]DrAdalberto Pulliam MCHC (RBC) [Mass/Vol] 33.4 g/dL Normal 29.9-35.2 [facility] Comment on above: Performed By: #### C BC ####[facility] Qalugjnefs4668 [place] [address]DrAdalberto Pulliam MCV (RBC) [Entitic vol] 91.2 fL Normal 80.0-94.0 [facility] Comment on above: Performed By: #### C BC ####[facility] Ejviczljln34[address] [place], [place] [address]DrAdalberto Pulliam MONO # 0.8 103/ul Normal 0.3-0.8 [facility] Comment on above: Performed By: #### C BC ####[facility] Wyrlkaxtms[address] [place], [place] [address]DrAdalberto Pulliam Monocytes/100 WBC (Bld) 7.6 % Normal 1.7-12.0 [facility] Comment on above: Performed By: #### C BC ####[facility] Xzajyvkgnv[address] [place], [place] [address]DrAdalberto Pulliam NEUT # 7.0 103/ul Critically high 1.4-6.5 [facility] Comment on above: Performed By: #### C BC ####[facility] Lsaspvndug[address] [place], [place] [address]DrAdalberto Pulliam Neutrophils/100 WBC (Bld) 71.2 % Normal 43.0-75.0 [facility] Comment on above: Performed By: #### C BC ####[facility] [address]htkzzsq[address] [place], [place] [address]DrAdalberto Pulliam Platelet mean volume (Bld) [Entitic vol] 8.9 fL Critically low 9.5-13.5 [facility] Comment on above: Performed By: #### C BC ####[facility] J[address]qtrmtc[address] [place], [place] [address]DrAdalberto Pulliam PLT 217 103/ul Normal 150-450 [facility] Comment on above: Performed By: #### C BC ####[facility] Xfiswvnofz8172 [place] [address]Dr. Garima Heraclio RBC 5.02 106/ul Normal 4.70-6.10 [facility] Comment on above: Performed By: #### C BC ####[facility] Xievhuzuhu[address] [place], [place] [address]Dr. Garima Pulliam WBC 9.8 103/ul Normal 4.0-11.0 [facility] Comment on above: Performed By: #### C BC ####[facility] Xrxinvjwpa[address] [place], [place] [address]Dr. Garima Heraclio CRPon 03-18-2023 CRP 0.1 mg/dL Normal <=1.0 [facility] Comment on above: Performed By: #### C RP ####[facility] Rqxtehtals23[address] [place], [place] [address]Dr. Garima Heraclio PROF CHEM 8 (BAS METB)on Anion gap [Moles/Vol] 10.4 mmol/L Normal [facility] Comment on above: Performed By: #### B CLIENT SERVICE MANAGER, BMP ####[facility] Odugwlnfoc06[address] [place], [place] [address]Dr. Garima Heraclio Calcium [Mass/Vol] 8.8 mg/dL Normal 8.5-10.1 [facility] Comment on above: Performed By: #### B CLIENT SERVICE MANAGER, BMP ####[facility] [address]ixxkmccjn[address] [place], [place] [address]Dr. Garima Heraclio Chloride [Moles/Vol] 97 mmol/L Critically low 98-107 [facility] Comment on above: Performed By: #### B CLIENT SERVICE MANAGER, BMP ####[facility] U[address]ymusbnu40[address] [place], [place] [address]Dr. Garima Pulliam CO2 [Moles/Vol] 31.2 mmol/L Normal 21.0-32.0 [facility] Comment on above: Performed By: #### B CLIENT SERVICE MANAGER, BMP ####[facility] Igrwnozbwu[address] [place], [place] [address]Dr. Garima Pulliam Creatinine [Mass/Vol] 0.91 mg/dL Normal 0.70-1.30 [facility] Comment on above: Performed By: #### B CLIENT SERVICE MANAGER, BMP ####[facility] Wlpkluqqsq3543 [place] [address]Dr. Garima Pulliam EGFR-AF LATVIAN >60 Normal >=60 [facility] Comment on above: Performed By: #### B CLIENT SERVICE MANAGER, BMP ####[facility] Tfiykkvqqc6940 [place] [id number]. Garima Pulilam EGFR-NON AF LATVIAN >60 Normal >=60 [facility] Comment on above: Performed By: #### B CLIENT SERVICE MANAGER, BMP ####[facility] Qeymnmdsyd6817 [place] [address]Dr. Garima Pulliam Glucose [Mass/Vol] 315 mg/dL Critically high 74-106 [facility] Comment on above: Performed By: #### B CLIENT SERVICE MANAGER, BMP ####[facility] Nmqtehwefx9254 [place] [address]Dr. Garima Pulliam Potassium [Moles/Vol] 3.6 mmol/L Normal 3.5-5.1 [facility] Comment on above: Performed By: #### B CLIENT SERVICE MANAGER, BMP ####[facility] Nrhnqwzafy8227 [place] [address]Dr. Garima Pulliam Sodium [Moles/Vol] 135 mmol/L Critically low 136-145 Th [facility] Comment on above: Performed By: #### B CLIENT SERVICE MANAGER, BMP ####[facility] Bkshllbfga[address] [place] [address]Dr. Garima Pulliam Urea nitrogen [Mass/Vol] 7.0 mg/dL Normal 7.0-18.0 [facility] Comment on above: Performed By: #### B CLIENT SERVICE MANAGER, BMP ####[facility] [address]hecsd[address] [place] [address]Dr. Garima Pulliam Urea nitrogen/Creatinine [Mass ratio] 7.7 mg/mg [facility] Comment on above: Performed By: #### B CLIENT SERVICE MANAGER, BMP ####[facility] Jiisywfabu[address] [place] [address]Dr. Garima Pulliam SED RATE WESTERGRENon 2022 SED RATE 8 mm/hr Normal <=20 [facility] Comment on above: Performed By: #### S EDR ####[facility] Jhgobsphtm[address] [place], [place] [address]Dr. Garima Pulliam BNPon 03-16-2023 Natriuretic peptide B (Bld) [Mass/Vol] 241.0 pg/mL Normal <=900.0 [facility] Comment on above: Performed By: #### B CLIENT SERVICE MANAGER, BMP, HSTROPN ####[facility] Fdmjehszfr[address] [place], [place] [address]Dr. Garima Heraclio CBC AUTO DIFFon 03-16-2023 BASO # 0.0 103/ul Normal 0.0-0.1 [facility] Comment on above: Performed By: #### C BC ####[facility] Rpicubwvoz[address] [place], [place] [address]Dr. Chapisrenu Pulliam Basophils/100 WBC (Bld) 0.2 % Normal 0.2-2.0 [facility] Comment on above: Performed By: #### C BC ####[facility] Mkxepkvwwt[address] [place], [place] [address]Dr. Garima Pulliam EO # 0.2 103/ul Normal 0.0-0.7 [facility] Comment on above: Performed By: #### C BC ####[facility] Jbjxvshpay[address] [place], [place] [address]Dr. Chapisrenu Pulliam Eosinophils/100 WBC (Bld) 2.7 % Normal 0.9-7.0 [facility] Comment on above: Performed By: #### C BC ####[facility] Irukzfavvo[address] [place], [place] [address]Dr. Garima Pulliam Erythrocyte distribution width (RBC) [Ratio] 13.1 % Normal 11.0-15.0 [facility] Comment on above: Performed By: #### C BC ####[facility] Gonasvlcib[address] [place], [place] [address]Dr. Garima Pulliam Hematocrit (Bld) [Volume fraction] 41.8 % Critically low 42.0-54.0 [facility] Comment on above: Performed By: #### C BC ####[facility] Jutqewdzmy[address] [place] [address]Dr. Garima Pulliam Hemoglobin (Bld) [Mass/Vol] 14.0 g/dL Normal 14.0-18.0 [facility] Comment on above: Performed By: #### C BC ####[facility] Drfvbilkyf36[address] [place] [address]Dr. Garima Pulliam IG # 0.03 10e3/ul Normal 0.00-0.03 [facility] Comment on above: Performed By: #### C BC ####[facility] Cjqtbdpdat2917 [place] [address]Dr. Garima Pulliam IG % 0.3 % Normal 0.0-0.5 [facility] Comment on above: Performed By: #### C BC ####[facility] Rfesgyzjpo34[address] [place], [place] [address]Dr. Chapisrenu Pulliam LYMPH # 2.1 103/ul Normal 1.2-3.8 [facility] Comment on above: Performed By: #### C BC ####[facility] Rqtaadbwhv[address] [place], [place] [address]Dr. Chapisrenu Pulliam Lymphocytes/100 WBC (Bld) 24.2 % Normal 20.5-60.0 [facility] Comment on above: Performed By: #### C BC ####[facility] Vobiueytux[address] [place] [address]Dr. Garima Pulliam MANUAL DIFF REQ NO Normal [facility] Comment on above: Performed By: #### C BC ####[facility] Dgxamobcoh9183 [place] [address]Dr. Garima Pulliam MCH (RBC) [Entitic mass] 30.2 pg Normal 25.9-34.0 [facility] Comment on above: Performed By: #### C BC ####[facility] Aticakmxem[address] [place] [address]Dr. Garima Pulliam MCHC (RBC) [Mass/Vol] 33.5 g/dL Normal 29.9-35.2 [facility] Comment on above: Performed By: #### C BC ####[facility] Npqawwjqcn[address] [place] [id number]. Garima Pulliam MCV (RBC) [Entitic vol] 90.1 fL Normal 80.0-94.0 [facility] Comment on above: Performed By: #### C BC ####[facility] Iulhxyioxt5799 [place] [phone]. Garima Pulliam MONO # 0.6 103/ul Normal 0.3-0.8 [facility] Comment on above: Performed By: #### C BC ####[facility] Wwyheamqee7771 [place] [address]Dr. Garima Heraclio Monocytes/100 WBC (Bld) 7.4 % Normal 1.7-12.0 [facility] Comment on above: Performed By: #### C BC ####[facility] Wsoqobruao[address] [place], [place] [address]Dr. Garima Pulliam NEUT # 5.6 103/ul Normal 1.4-6.5 [facility] Comment on above: Performed By: #### C BC ####[facility] Videynywun89[address] [place], [place] [address]Dr. Garima Heraclio Neutrophils/100 WBC (Bld) 65.2 % Normal 43.0-75.0 [facility] Comment on above: Performed By: #### C BC ####[facility] Qjzhfmasoo9396 [place] [phone]. Garima Heraclio Platelet mean volume (Bld) [Entitic vol] 8.7 fL Critically low 9.5-13.5 [facility] Comment on above: Performed By: #### C BC ####[facility] [address]pr[address]sp[address] [place], [place] [id number]. Garima Heraclio PLT 195 103/ul Normal 150-450 [facility] Comment on above: Performed By: #### C BC ####[facility] Dedsgvfdxo8724 [place] [phone]. Garima Pulliam RBC 4.64 106/ul Critically low 4.70-6.10 [facility] Comment on above: Performed By: #### C BC ####[facility] Sojzxixbqf75[address] [place] [address]Dr. Garima Pulliam WBC 8.6 103/ul Normal 4.0-11.0 [facility] Comment on above: Performed By: #### C BC ####[facility] Nsknckqlkx38[address] [place] [address]Dr. Garima Pulliam PROF CHEM 8 (BAS METB)on Anion gap [Moles/Vol] 6.7 mmol/L Normal [facility] Comment on above: Performed By: #### B CLIENT SERVICE MANAGER, BMP, HSTROPN ####[facility] Ovjwgnhhxg3[address] [place] [address]Dr. Garima Pulliam Calcium [Mass/Vol] 8.8 mg/dL Normal 8.5-10.1 [facility] Comment on above: Performed By: #### B CLIENT SERVICE MANAGER, BMP, HSTROPN ####[facility] Mjfrvstdwn[address] [place], [place] [address]Dr. Garima Pulliam Chloride [Moles/Vol] 106 mmol/L Normal 98-107 [facility] Comment on above: Performed By: #### B CLIENT SERVICE MANAGER, BMP, HSTROPN ####[facility] Lemsnqpfdu[address] [place], [place] [address]Dr. Garima Pulliam CO2 [Moles/Vol] 31.4 mmol/L Normal 21.0-32.0 [facility] Comment on above: Performed By: #### B CLIENT SERVICE MANAGER, BMP, HSTROPN ####[facility] Ujwiggnwjn[address] [place], [place] [address]Dr. Garima Pulliam Creatinine [Mass/Vol] 0.75 mg/dL Normal 0.70-1.30 [facility] Comment on above: Performed By: #### B CLIENT SERVICE MANAGER, BMP, HSTROPN ####[facility] Apvxrxlhcu4[address] [place] [address]Dr. Garima Pulliam EGFR-AF LATVIAN >60 Normal >=60 [facility] Comment on above: Performed By: #### B CLIENT SERVICE MANAGER, BMP, HSTROPN ####[facility] Rdecnsqnws8[address] [place] [address]Dr. Garima Pulliam EGFR-NON AF LATVIAN >60 Normal >=60 [facility] Comment on above: Performed By: #### B CLIENT SERVICE MANAGER, BMP, HSTROPN ####[facility] Hqfrwabuoy7[address] [place] [address]Dr. Garima Pulliam Glucose [Mass/Vol] 161 mg/dL Critically high 74-106 [facility] Comment on above: Performed By: #### B CLIENT SERVICE MANAGER, BMP, HSTROPN ####[facility] Lpzarxdpiy7046 [place] [address]Dr. Garima Pulliam Potassium [Moles/Vol] 4.1 mmol/L Normal 3.5-5.1 [facility] Comment on above: Performed By: #### B CLIENT SERVICE MANAGER, BMP, HSTROPN ####[facility] Lxviqxdutk98[address] [place] [address]Dr. Garima Pulliam Sodium [Moles/Vol] 140 mmol/L Normal 136-145 [facility] Comment on above: Performed By: #### B CLIENT SERVICE MANAGER, BMP, HSTROPN ####[facility] Gnhziaecid[address] [place] [address]Dr. Garima Pulliam Urea nitrogen [Mass/Vol] 7.0 mg/dL Normal 7.0-18.0 [facility] Comment on above: Performed By: #### B CLIENT SERVICE MANAGER, BMP, HSTROPN ####[facility] Koyppiyxbe[address] [place] [address]Dr. Garima Pulliam Urea nitrogen/Creatinine [Mass ratio] 9.3 mg/mg Normal [facility] Comment on above: Performed By: #### B CLIENT SERVICE MANAGER, BMP, HSTROPN ####[facility] Ugfupjcixo37[address] [place] [address]Dr. Garima Pulliam TROPONIN, HIGH SENSITIVITYon 03-16-2023 HSTROP 9.7 pg/mL Normal 4.0-76.1 [facility] Comment on above: Result Comment: CUT- OFF POINTS HAVE BEEN ESTABLISHED BASED ON THE FOURTH UNIVERSAL DEFINITIONS OF MYOCARDIALINFARCTION. THE UPPER REFERENCE LIMIT (URL) OF TROPONIN, DEFINED THE 99TH PERCENTILE OFcTnI DISTRIBUTION IN A REFERENCE POPULATION, HAS BEEN CONFIRMED THE DECISION THRESHOLDFOR NC DIAGNOSIS. Performed By: #### B CLIENT SERVICE MANAGER, BMP, HSTROPN ####[facility] W[address]xbnngpt[address] [place] [address]Dr. Garima Pulliam XR CHEST 1 Von 03-16-2023 XR CHEST 1 V Normal [facility] BNPon 03-06-2023 Natriuretic peptide B (Bld) [Mass/Vol] 111.0 pg/mL Normal <=900.0 [facility] Comment on above: Performed By: #### C MP, BNP, CK ####[facility] Wgtbughpvq0203 [place] [address]Dr. Chaipsrenu Pulliam CBC AUTO DIFFon 03-06-2023 BASO # 0.0 103/ul Normal 0.0-0.1 [facility] Comment on above: Performed By: #### C BC ####[facility] Hubphrittn[address] [place], [place] [address]Dr. Garima Pulliam Basophils/100 WBC (Bld) 0.2 % Normal 0.2-2.0 [facility] Comment on above: Performed By: #### C BC ####[facility] Wqbvbfvcbd[address] [place], [place] [address]Dr. Garima Pulliam EO # 0.3 103/ul Normal 0.0-0.7 [facility] Comment on above: Performed By: #### C BC ####[facility] Ujlasbyuxi[address] [place], [place] [address]Dr. Garima Pulliam Eosinophils/100 WBC (Bld) 3.5 % Normal 0.9-7.0 [facility] Comment on above: Performed By: #### C BC ####[facility] Efhwhzuyfi8[address] [place], [place] [address]Dr. Garima Pulliam Erythrocyte distribution width (RBC) [Ratio] 13.3 % Normal 11.0-15.0 [facility] Comment on above: Performed By: #### C BC ####[facility] Xnbwrkguze[address] [place], [place] [address]Dr. Garima Pulliam Hematocrit (Bld) [Volume fraction] 43.7 % Normal 42.0-54.0 [facility] Comment on above: Performed By: #### C BC ####[facility] Dmmmarueob5167 [place] [address]Dr. Garima Pulliam Hemoglobin (Bld) [Mass/Vol] 14.7 g/dL Normal 14.0-18.0 [facility] Comment on above: Performed By: #### C BC ####[facility] Eiaxrbcvwt1409 [place] [address]Dr. Chapisrenu Heraclio IG # 0.03 10e3/ul Normal 0.00-0.03 [facility] Comment on above: Performed By: #### C BC ####[facility] Bugmdnkced[address] [place], [place] [address]Dr. Garima Pulliam IG % 0.4 % Normal 0.0-0.5 [facility] Comment on above: Performed By: #### C BC ####[facility] Unswwxzvyu26[address] [place], [place] [address]Dr. Garima Pulliam LYMPH # 2.0 103/ul Normal 1.2-3.8 [facility] Comment on above: Performed By: #### C BC ####[facility] Wuaktbjhxs[address] [place], [place] [address]DrAdalberto Pulliam Lymphocytes/100 WBC (Bld) 23.7 % Normal 20.5-60.0 [facility] Comment on above: Performed By: #### C BC ####[facility] Dzwvkvskip7450 [place] [address]Dr. Garima Pulliam MANUAL DIFF REQ NO Normal [facility] Comment on above: Performed By: #### C BC ####[facility] Smnfbpdbds0519 [place] [phone] Pulliam MCH (RBC) [Entitic mass] 30.1 pg Normal 25.9-34.0 [facility] Comment on above: Performed By: #### C BC ####[facility] Umirbychmv2931 [place] [phone]. Garima Pulliam MCHC (RBC) [Mass/Vol] 33.6 g/dL Normal 29.9-35.2 [facility] Comment on above: Performed By: #### C BC ####[facility] Dszzbvvpbx2802 [place] [address]Dr. Garima Heraclio MCV (RBC) [Entitic vol] 89.4 fL Normal 80.0-94.0 [facility] Comment on above: Performed By: #### C BC ####[facility] Vznzkvdqvw6158 [place] [address]Dr. Garima Pulliam MONO # 0.8 103/ul Normal 0.3-0.8 [facility] Comment on above: Performed By: #### C BC ####[facility] Tmntnjhqcm1727 [place] [address]Dr. Garima Pulliam Monocytes/100 WBC (Bld) 9.0 % Normal 1.7-12.0 [facility] Comment on above: Performed By: #### C BC ####[facility] Aldfdlirdl[address] [place], [place] [address]Dr. Garima Pulliam NEUT # 5.4 103/ul Normal 1.4-6.5 [facility] Comment on above: Performed By: #### C BC ####[facility] Wcptjwczlq7[address] [place], [place] [address]Dr. Garima Pulliam Neutrophils/100 WBC (Bld) 63.2 % Normal 43.0-75.0 [facility] Comment on above: Performed By: #### C BC ####[facility] Nsvnrwkpog24[address] [place], [place] [address]Dr. Garima Pulliam Platelet mean volume (Bld) [Entitic vol] 9.0 fL Critically low 9.5-13.5 [facility] Comment on above: Performed By: #### C BC ####[facility] Uqenzbnwoq[address] [place], [place] [address]Dr. Garima Pullima PLT 218 103/ul Normal 150-450 [facility] Comment on above: Performed By: #### C BC ####[facility] Xqwtdxlepd7789 [place] [phone]. Garima Pulliam RBC 4.89 106/ul Normal 4.70-6.10 [facility] Comment on above: Performed By: #### C BC ####[facility] Obbajcfynj7965 [place] [address]Dr. Garima Pulliam WBC 8.5 103/ul Normal 4.0-11.0 [facility] Comment on above: Performed By: #### C BC ####[facility] Jqtaianfhd75[address] [place] [address]Dr. Garima Pulliam CPKon 03-06-2023 CK [Catalytic activity/Vol] 191 U/L Normal 39-308 [facility] Comment on above: Performed By: #### C MP, BNP, CK ####[facility] Eecxkszkmo8603 [place] [address]Dr. Garima Pulliam PROF 14(COMP METB)on 023 Albumin [Mass/Vol] 3.6 g/dL Normal 3.4-5.0 [facility] Comment on above: Performed By: #### C MP, BNP, CK ####[facility] Xujllfxxaf2081 [place] [address]Dr. Garima Pulliam Albumin/Globulin [Mass ratio] 1.2 {ratio} Normal [facility] Comment on above: Performed By: #### C MP, BNP, CK ####[facility] Yzvfhhihsp7337 [place] [address]Dr. Garima Pulliam ALP [Catalytic activity/Vol] 91 U/L Normal 46-116 [facility] Comment on above: Performed By: #### C MP, BNP, CK ####[facility] Lxapswszoq8361 [place] [address]Dr. Garima Pulliam ALT [Catalytic activity/Vol] 33 U/L Normal 16-63 [facility] Comment on above: Performed By: #### C MP, BNP, CK ####[facility] Somtnzxrgt8566 [place] [address]Dr. Garima Pulliam Anion gap [Moles/Vol] 10.3 mmol/L Normal [facility] Comment on above: Performed By: #### C MP, BNP, CK ####[facility] Dlqcggggxa9925 [place] [address]Dr. Garima Pulliam AST [Catalytic activity/Vol] 17 U/L Normal 15-37 [facility] Comment on above: Performed By: #### C MP, BNP, CK ####[facility] Ksncxirefa7436 [place] [address]Dr. Garima Pulliam Bilirubin [Mass/Vol] 0.4 mg/dL Normal 0.2-1.0 [facility] Comment on above: Performed By: #### C MP, BNP, CK ####[facility] Cvfvthcidf8938 [place] [address]Dr. Garima Pulliam Calcium [Mass/Vol] 9.1 mg/dL Normal 8.5-10.1 [facility] Comment on above: Performed By: #### C MP, BNP, CK ####[facility] Wcrimhhjvm2280 [place] [address]Dr. Garima Pulliam Chloride [Moles/Vol] 102 mmol/L Normal 98-107 [facility] Comment on above: Performed By: #### C MP, BNP, CK ####[facility] Pvtybbnmjs3655 [place] [address]Dr. Garima Pulliam CO2 [Moles/Vol] 29.7 mmol/L Normal 21.0-32.0 [facility] Comment on above: Performed By: #### C MP, BNP, CK ####[facility] Qernbdkbcc2592 [place] [address]Dr. Garima Pulliam Creatinine [Mass/Vol] 0.79 mg/dL Normal 0.70-1.30 [facility] Comment on above: Performed By: #### C MP, BNP, CK ####[facility] Jbxlorgnem1755 [place] [address]Dr. Garima Pulliam EGFR-AF LATVIAN >60 Normal >=60 [facility] Comment on above: Performed By: #### C MP, BNP, CK ####[facility] Siaarqyvns4982 [place] [address]Dr. Garima Pulliam EGFR-NON AF LATVIAN >60 Normal >=60 [facility] Comment on above: Performed By: #### C MP, BNP, CK ####[facility] Pjrbqirrkg8780 [place] [address]Dr. Garima Pulliam Globulin (S) [Mass/Vol] 3.0 g/dL Normal [facility] Comment on above: Performed By: #### C MP, BNP, CK ####[facility] Qjpgmsbzes1503 [place] [address]Dr. Garima Pulliam Glucose [Mass/Vol] 202 mg/dL Critically high 74-106 [facility] Comment on above: Performed By: #### C MP, BNP, CK ####[facility] Xiqwteaqad6838 [place] [address]Dr. Garima Pulliam Potassium [Moles/Vol] 4.0 mmol/L Normal 3.5-5.1 [facility] Comment on above: Performed By: #### C MP, BNP, CK ####[facility] Ssmrejrwgr1996 [place] [address]Dr. Garima Pulliam Protein [Mass/Vol] 6.6 g/dL Normal 6.4-8.2 [facility] Comment on above: Performed By: #### C MP, BNP, CK ####[facility] Eshvsyeboa[address] [place], [place] [address]Dr. Garima Pulliam Sodium [Moles/Vol] 138 mmol/L Normal 136-145 [facility] Comment on above: Performed By: #### C MP, BNP, CK ####[facility] Dxoweshbbb68[address] [place], [place] [address]Dr. Garima Pulliam Urea nitrogen [Mass/Vol] 10.0 mg/dL Normal 7.0-18.0 [facility] Comment on above: Performed By: #### C MP, BNP, CK ####[facility] Zhilfzqfsu9546 [place] [address]Dr. Garima Pulliam Urea nitrogen/Creatinine [Mass ratio] 12.7 mg/mg Normal [facility] Comment on above: Performed By: #### C MP, BNP, CK ####[facility] Bqvmouivrt4520 [place] [address]Dr. Garima Pulliam US VERONICA DOP LEG BILon 023 US VERONICA DOP LEG BENOIT Normal [facility] CBC AUTO DIFFon 01-13-2023 BASO # 0.0 103/ul Normal 0.0-0.1 [facility] Comment on above: Performed By: #### C BC ####[facility] Opatqdoges7806 [place] [id number]. Chapisrenu Pulliam Basophils/100 WBC (Bld) 0.0 % Critically low 0.2-2.0 [facility] Comment on above: Performed By: #### C BC ####[facility] Yhgafpolrx2932 [place] [address]Dr. Garima Pulliam EO # 0.0 103/ul Normal 0.0-0.7 [facility] Comment on above: Performed By: #### C BC ####[facility] Ysvthidrfe[address] [place], [place] [address]Dr. Garima Pulliam Eosinophils/100 WBC (Bld) 0.0 % Critically low 0.9-7.0 [facility] Comment on above: Performed By: #### C BC ####[facility] Qpoeiyehkl9553 [place] [address]Dr. Garima Pulliam Erythrocyte distribution width (RBC) [Ratio] 13.2 % Normal 11.0-15.0 [facility] Comment on above: Performed By: #### C BC ####[facility] Zkkimyzvya65[address] [place], [place] [address]Dr. Garima Pulliam Hematocrit (Bld) [Volume fraction] 46.7 % Normal 42.0-54.0 [facility] Comment on above: Performed By: #### C BC ####[facility] Fjbbykhvhe63[address] [place], [place] [address]Dr. Garima Pulliam Hemoglobin (Bld) [Mass/Vol] 15.6 g/dL Normal 14.0-18.0 [facility] Comment on above: Performed By: #### C BC ####[facility] Ocnnknjcux[address] [place], [place] [address]Dr. Garima Pulliam IG # 0.01 10e3/ul Normal 0.00-0.03 [facility] Comment on above: Performed By: #### C BC ####[facility] Ryoyzraztt9447 [place] [phone]. Garima Pulliam IG % 0.2 % Normal 0.0-0.5 [facility] Comment on above: Performed By: #### C BC ####[facility] Cjvoyykqvw8437 [place] [phone]. Garima Pulliam LYMPH # 0.8 103/ul Critically low 1.2-3.8 [facility] Comment on above: Performed By: #### C BC ####[facility] Pdpwgenkcd0387 [place] [phone]. Garima Pulliam Lymphocytes/100 WBC (Bld) 12.7 % Critically low 20.5-60.0 [facility] Comment on above: Performed By: #### C BC ####[facility] Tlgttxhsjz9813 [place] [address]Dr. Garima Pulliam MANUAL DIFF REQ NO Normal [facility] Comment on above: Performed By: #### C BC ####[facility] Iayhaivmfh0049 [place] [phone]. Garima Pulliam MCH (RBC) [Entitic mass] 30.2 pg Normal 25.9-34.0 [facility] Comment on above: Performed By: #### C BC ####[facility] Orzlthtaun4832 [place] [phone]. Garima Pulliam MCHC (RBC) [Mass/Vol] 33.4 g/dL Normal 29.9-35.2 [facility] Comment on above: Performed By: #### C BC ####[facility] Boayybpwrt0507 [place] [phone]. Garima Pulliam MCV (RBC) [Entitic vol] 90.3 fL Normal 80.0-94.0 [facility] Comment on above: Performed By: #### C BC ####[facility] Geruovzgws4841 [place] [phone]. Garima Heraclio MONO # 0.1 103/ul Critically low 0.3-0.8 [facility] Comment on above: Performed By: #### C BC ####[facility] Zjrpvcfcif2189 [place] [phone]. Garima Pulliam Monocytes/100 WBC (Bld) 0.9 % Critically low 1.7-12.0 [facility] Comment on above: Performed By: #### C BC ####[facility] Qsflottuet7314 [place] [phone]. Garima Pulliam NEUT # 5.6 103/ul Normal 1.4-6.5 [facility] Comment on above: Performed By: #### C BC ####[facility] Blgjgrszjt7136 [place] [phone]. Garima Pulliam Neutrophils/100 WBC (Bld) 86.2 % Critically high 43.0-75.0 [facility] Comment on above: Performed By: #### C BC ####[facility] Scuiccahtk7339 [place] [address]Dr. Garima Pulliam Platelet mean volume (Bld) [Entitic vol] 9.1 fL Critically low 9.5-13.5 [facility] Comment on above: Performed By: #### C BC ####[facility] Ryx[address]whwj[address] [place], [place] [address]Dr. Garima Pulliam PLT 169 103/ul Normal 150-450 [facility] Comment on above: Performed By: #### C BC ####[facility] [address]kbctrhtp[address] [place], [place] [address]Dr. Garima Pulliam RBC 5.17 106/ul Normal 4.70-6.10 [facility] Comment on above: Performed By: #### C BC ####[facility] [address]tr[address]qs[address] [place], [place] [id number]. Garima Pulliam WBC 6.5 103/ul Normal 4.0-11.0 [facility] Comment on above: Performed By: #### C BC ####[facility] Tptrwmymim[address] [place], [place] [address]Dr. Garima Pulliam D-DIMERon 01-13-2023 D-DIMER 0.41 mg/L FEU Normal <=0.59 [facility] Comment on above: Performed By: #### D DIM ####[facility] C[address]lxnjfzz[address] [place] [address]Dr. Garima Pulliam D-DIMER COMMENTS SEE BELOW Normal [facility] Comment on above: Result Comment: Incr [...] generalized hospitalization. Performed By: #### D DIM ####[facility] Augtityvac[address] [place], [place] [address]Dr. Garima Pulliam PROF 14(COMP METB)on 023 Albumin [Mass/Vol] 3.4 g/dL Normal 3.4-5.0 [facility] Comment on above: Performed By: #### C MP ####[facility] Jhlqlprisp[address] [place], [place] [address]Dr. Garima Pulliam Albumin/Globulin [Mass ratio] 1.3 {ratio} Normal [facility] Comment on above: Performed By: #### C MP ####[facility] Xadimxqowe[address] [place], [place] [address]Dr. Garima Pulliam ALP [Catalytic activity/Vol] 83 U/L Normal 46-116 [facility] Comment on above: Performed By: #### C MP ####[facility] Bgibogsuvr[address] [place], [place] [address]Dr. Garima Pulliam ALT [Catalytic activity/Vol] 25 U/L Normal 16-63 [facility] Comment on above: Performed By: #### C MP ####[facility] Qsgxfcwclb[address] [place] [address]Dr. Garima Pulliam Anion gap [Moles/Vol] 14.5 mmol/L Normal [facility] Comment on above: Performed By: #### C MP ####[facility] Jbgibzhwus[address] [place], [place] [address]Dr. Garima Pulliam AST [Catalytic activity/Vol] 19 U/L Normal 15-37 [facility] Comment on above: Performed By: #### C MP ####[facility] Qzcgpyxqox[address] [place], [place] [address]Dr. Garima Pulliam Bilirubin [Mass/Vol] 0.4 mg/dL Normal 0.2-1.0 [facility] Comment on above: Performed By: #### C MP ####[facility] Abcztkeigw[address] [place], [place] [address]Dr. Garima Pulliam Calcium [Mass/Vol] 8.7 mg/dL Normal 8.5-10.1 [facility] Comment on above: Performed By: #### C MP ####[facility] Xifbyhryjo[address] [place], [place] [address]Dr. Garima Pulliam Chloride [Moles/Vol] 104 mmol/L Normal 98-107 [facility] Comment on above: Performed By: #### C MP ####[facility] Uxbwnfgqoo192[address] [place], [place] [address]Dr. Garima Pulliam CO2 [Moles/Vol] 24.5 mmol/L Normal 21.0-32.0 [facility] Comment on above: Performed By: #### C MP ####[facility] Smdahxeggr[address] [place], [place] [address]Dr. Garima Pulliam Creatinine [Mass/Vol] 0.70 mg/dL Normal 0.70-1.30 [facility] Comment on above: Performed By: #### C MP ####[facility] Udlsgmemrd[address] [place], [place] [address]Dr. Garima Heraclio EGFR-AF LATVIAN >60 Normal >=60 [facility] Comment on above: Performed By: #### C MP ####[facility] Fgbqnpgdyo[address] [place], [place] [address]Dr. Chapisrenu Heraclio EGFR-NON AF LATVIAN >60 Normal >=60 [facility] Comment on above: Performed By: #### C MP ####[facility] Cxgpjzvirp[address] [place], [place] [address]Dr. Chapisrenu Pulliam Globulin (S) [Mass/Vol] 2.6 g/dL Normal [facility] Comment on above: Performed By: #### C MP ####[facility] Utctruxrbv[address] [place] [address]Dr. Garima Pulliam Glucose [Mass/Vol] 196 mg/dL Critically high 74-106 [facility] Comment on above: Performed By: #### C MP ####[facility] Ewumkncafk65[address] [place] [address]Dr. Garima Pulliam Potassium [Moles/Vol] 4.0 mmol/L Normal 3.5-5.1 [facility] Comment on above: Performed By: #### C MP ####[facility] Hkfgprubsg6686 [place] [address]Dr. Garima Pulliam Protein [Mass/Vol] 6.0 g/dL Critically low 6.4-8.2 [facility] Comment on above: Performed By: #### C MP ####[facility] Tsiuxbccjk[address] [place], [place] [address]Dr. Garima Pulliam Sodium [Moles/Vol] 139 mmol/L Normal 136-145 [facility] Comment on above: Performed By: #### C MP ####[facility] Wxcnkrcdcs[address] [place], [place] [address]Dr. Garima Pulliam Urea nitrogen [Mass/Vol] 7.0 mg/dL Normal 7.0-18.0 [facility] Comment on above: Performed By: #### C MP ####[facility] Yakvtvmpry[address] [place], [place] [address]Dr. Garima Heraclio Urea nitrogen/Creatinine [Mass ratio] 10.0 mg/mg Normal [facility] Comment on above: Performed By: #### C MP ####[facility] Yazpeyeuby[address] [place], [place] [address]Dr. Garima Heraclio BNPon 01-12-2023 Natriuretic peptide B (Bld) [Mass/Vol] 141.0 pg/mL Normal <=900.0 [facility] Comment on above: Performed By: #### C MP, BNP, HSTROPN ####[facility] Qepntckwxd[address] [place], [place] [address]Dr. Garima Heraclio CBC AUTO DIFFon 01-12-2023 BASO # 0.0 103/ul Normal 0.0-0.1 [facility] Comment on above: Performed By: #### C BC ####[facility] [address]jbi[address]gfmmm33[address] [place] [id number]. Garima Heraclio Basophils/100 WBC (Bld) 0.2 % Normal 0.2-2.0 [facility] Comment on above: Performed By: #### C BC ####[facility] Iysxrwfcvr5121 [place] [address]Dr. Garima Heraclio EO # 0.2 103/ul Normal 0.0-0.7 [facility] Comment on above: Performed By: #### C BC ####[facility] Pmrgxgrilh71[address] [place] [address]Dr. Garima Heraclio Eosinophils/100 WBC (Bld) 2.7 % Normal 0.9-7.0 [facility] Comment on above: Performed By: #### C BC ####[facility] Ekmsltrdqb18[address] [place], [place] [address]Dr. Garima Pulliam Erythrocyte distribution width (RBC) [Ratio] 13.3 % Normal 11.0-15.0 [facility] Comment on above: Performed By: #### C BC ####[facility] Dfrzlufeya[address] [place], [place] [address]Dr. Garima Pulliam Hematocrit (Bld) [Volume fraction] 42.3 % Normal 42.0-54.0 [facility] Comment on above: Performed By: #### C BC ####[facility] Gubkxlzzat[address] [place], [place] [address]Dr. Garima Pulliam Hemoglobin (Bld) [Mass/Vol] 14.3 g/dL Normal 14.0-18.0 [facility] Comment on above: Performed By: #### C BC ####[facility] Kwccbvtami[address] [place], [place] [address]Dr. Garima Pulliam IG # 0.02 10e3/ul Normal 0.00-0.03 [facility] Comment on above: Performed By: #### C BC ####[facility] Qfdoktydvk7306 [place] [id number]. Garima Pulliam IG % 0.2 % Normal 0.0-0.5 [facility] Comment on above: Performed By: #### C BC ####[facility] Aimqmfsvyk0808 [place] [phone]. Garima Pulliam LYMPH # 2.6 103/ul Normal 1.2-3.8 [facility] Comment on above: Performed By: #### C BC ####[facility] Mrgozlpyum0878 [place] [phone]. aGrima Heraclio Lymphocytes/100 WBC (Bld) 29.6 % Normal 20.5-60.0 [facility] Comment on above: Performed By: #### C BC ####[facility] Bhutdzliay[address] [place] [address]Dr. Garima Heraclio MANUAL DIFF REQ NO Normal The [facility] Comment on above: Performed By: #### C BC ####[facility] Ldnrpsvhum6[address] [place] [id number]. Garima Pulliam MCH (RBC) [Entitic mass] 30.2 pg Normal 25.9-34.0 [facility] Comment on above: Performed By: #### C BC ####[facility] Ukthjjovsf[address] [place] [address]Dr. Garima Pulliam MCHC (RBC) [Mass/Vol] 33.8 g/dL Normal 29.9-35.2 [facility] Comment on above: Performed By: #### C BC ####[facility] Aktamtsrmv2996 [place] [phone]. Garima Pulliam MCV (RBC) [Entitic vol] 89.2 fL Normal 80.0-94.0 [facility] Comment on above: Performed By: #### C BC ####[facility] Cabevssi[address] [place], [place] [address]Dr. Chapisrenu Pulliam MONO # 0.7 103/ul Normal 0.3-0.8 [facility] Comment on above: Performed By: #### C BC ####[facility] Eqwmyxdbnn3665 [place] [phone]. Garima Pulliam Monocytes/100 WBC (Bld) 8.3 % Normal 1.7-12.0 [facility] Comment on above: Performed By: #### C BC ####[facility] Wsgupibgul13[address] [place] [phone]. Garima Pulliam NEUT # 5.1 103/ul Normal 1.4-6.5 [facility] Comment on above: Performed By: #### C BC ####[facility] Twjbajobqd6918 [place] [phone]. Garima Pulliam Neutrophils/100 WBC (Bld) 59.0 % Normal 43.0-75.0 [facility] Comment on above: Performed By: #### C BC ####[facility] Hrnuxxatxz77[address] [place] [address]Dr. Garima Pulliam Platelet mean volume (Bld) [Entitic vol] 8.7 fL Critically low 9.5-13.5 [facility] Comment on above: Performed By: #### C BC ####[facility] Mdevghuzyd90[address] [place] [address]Dr. Garima Pulliam PLT 182 103/ul Normal 150-450 [facility] Comment on above: Performed By: #### C BC ####[facility] Ypsekquldc9969 [place] [phone]. Garima Pulliam RBC 4.74 106/ul Normal 4.70-6.10 [facility] Comment on above: Performed By: #### C BC ####[facility] J[address]crhtos[address] [place], [place] [id number]. Garima Pulliam WBC 8.7 103/ul Normal 4.0-11.0 [facility] Comment on above: Performed By: #### C BC ####[facility] Cunnguandm[address] [place], [place] [address]Dr. Garima Pulliam Covid-19 PCR (CVDTB)on 12-25 SARS-CoV-2 (COVID-19) RNA MARIE+probe Ql (Unsp spec) Not detected Normal NOT DETECTED [facility] Comment on above: Result [...] for this test is supported by the Director [employer] of Health and Human Service's declaration that [...] be used). Performed By: #### C VDTBH ####[facility] [address]qdsrjnsly[address] [place] [address]Dr. Garima Pulliam PROF 14(COMP METB)on 023 Albumin [Mass/Vol] 3.6 g/dL Normal 3.4-5.0 [facility] Comment on above: Performed By: #### C MP, BNP, HSTROPN ####[facility] Fzwfotpgwx8[address] [place] [address]Dr. Garima Pulliam Albumin/Globulin [Mass ratio] 1.5 {ratio} Normal [facility] Comment on above: Performed By: #### C MP, BNP, HSTROPN ####[facility] Bvcbjhwktn3453 [place] [address]Dr. Garima Pulliam ALP [Catalytic activity/Vol] 79 U/L Normal 46-116 [facility] Comment on above: Performed By: #### C MP, BNP, HSTROPN ####[facility] Kdsgxzsvxr5039 [place] [address]Dr. Garima Pulliam ALT [Catalytic activity/Vol] 27 U/L Normal 16-63 [facility] Comment on above: Performed By: #### C MP, BNP, HSTROPN ####[facility] Fjlawgzrtw54[address] [place] [address]Dr. Garima Pulliam Anion gap [Moles/Vol] 11.7 mmol/L Normal Th [facility] Comment on above: Performed By: #### C MP, BNP, HSTROPN ####[facility] Azppjkfqwy7205 [place] [address]Dr. Garima Pulliam AST [Catalytic activity/Vol] 21 U/L Normal 15-37 [facility] Comment on above: Performed By: #### C MP, BNP, HSTROPN ####[facility] Kiuwnvhsul38[address] [place] [address]Dr. Garima Pulliam Bilirubin [Mass/Vol] 0.3 mg/dL Normal 0.2-1.0 [facility] Comment on above: Performed By: #### C MP, BNP, HSTROPN ####[facility] Yeabhpogmx7436 [place] [address]Dr. Garima Pulliam Calcium [Mass/Vol] 8.9 mg/dL Normal 8.5-10.1 [facility] Comment on above: Performed By: #### C MP, BNP, HSTROPN ####[facility] Igjkmrvkqh17[address] [place] [address]Dr. Garima Pulliam Chloride [Moles/Vol] 107 mmol/L Normal 98-107 [facility] Comment on above: Performed By: #### C MP, BNP, HSTROPN ####[facility] Puuiyxyizl7254 [place] [address]Dr. Garima Pulliam CO2 [Moles/Vol] 26.0 mmol/L Normal 21.0-32.0 [facility] Comment on above: Performed By: #### C MP, BNP, HSTROPN ####[facility] Uabqmzahtp6[address] [place] [address]Dr. Garima Pulliam Creatinine [Mass/Vol] 0.65 mg/dL Critically low 0.70-1.30 [facility] Comment on above: Performed By: #### C MP, BNP, HSTROPN ####[facility] Adbispvwsr9[address] [place] [address]Dr. Yilan Pulliam EGFR-AF LATVIAN >60 Normal >=60 [facility] Comment on above: Performed By: #### C MP, BNP, HSTROPN ####[facility] Ynslroisby4[address] [place] [address]Dr. Garima Pulliam EGFR-NON AF LATVIAN >60 Normal >=60 [facility] Comment on above: Performed By: #### C MP, BNP, HSTROPN ####[facility] Ormecjhzvk50[address] [place] [address]Dr. Garima Pulliam Globulin (S) [Mass/Vol] 2.4 g/dL Normal [facility] Comment on above: Performed By: #### C MP, BNP, HSTROPN ####[facility] Dbscvisycz[address] [place], [place] [address]Dr. Garima Pulliam Glucose [Mass/Vol] 85 mg/dL Normal 74-106 [facility] Comment on above: Performed By: #### C MP, BNP, HSTROPN ####[facility] Rphgvsrfqf6250 [place] [address]Dr. Garima Pulliam Potassium [Moles/Vol] 3.7 mmol/L Normal 3.5-5.1 [facility] Comment on above: Performed By: #### C MP, BNP, HSTROPN ####[facility] Wbwxdsrjqr57[address] [place] [address]Dr. Garima Pulliam Protein [Mass/Vol] 6.0 g/dL Critically low 6.4-8.2 [facility] Comment on above: Performed By: #### C MP, BNP, HSTROPN ####[facility] Ozaesaijmo[address] [place] [address]Dr. Garima Pulliam Sodium [Moles/Vol] 141 mmol/L Normal 136-145 [facility] Comment on above: Performed By: #### C MP, BNP, HSTROPN ####[facility] Zmdznjscpf[address] [place] [address]Dr. Garima Pulliam Urea nitrogen [Mass/Vol] 5.0 mg/dL Critically low 7.0-18.0 [facility] Comment on above: Performed By: #### C MP, BNP, HSTROPN ####[facility] Svqjmfeoxh2150 [place] [address]Dr. Garima Pulliam Urea nitrogen/Creatinine [Mass ratio] 7.7 mg/mg Normal [facility] Comment on above: Performed By: #### C MP, BNP, HSTROPN ####[facility] Nztvrhvcyj7162 [place] [address]Dr. Garima Pulliam PROTIMEon 01-12-2023 INR Coag (PPP) [Relative time] 1.16 {INR} Normal [facility] Comment on above: Performed By: #### P TT, PT ####[facility] Uomxvmiqwg3974 [place] [address]Dr. Garima Pulliam INR GUIDELINES SEE BELOW Normal [facility] Comment on above: Result Comment: WESLEY RED INR: 2.0 - 3.0 CONDITIONS NOT LISTED BELOW 2.5 - 3.5 FOR PROSTHETIC HEART VALVE REPLACEMENT 2.5 - 3.5 RECURRENT THROMBOSIS Performed By: #### P TT, PT ####[facility] Jrbfamnqsg[address] [place], [place] [address]Dr. Garima Pulliam PT Coag (PPP) [Time] 12.2 s Critically high 9.0-11.6 [facility] Comment on above: Performed By: #### P TT, PT ####[facility] Zekifgjdkt28[address] [place] [address]Dr. Garima Pulliam PTTon 01-12-2023 aPTT Coag (Bld) [Time] 29.1 s Normal 22.3-36.2 [facility] Comment on above: Performed By: #### P TT, PT ####[facility] [address]vjvhyooph[address] [place], [place] [address]Dr. Garima Pulliam TROPONIN, HIGH SENSITIVITYon 01-12-2023 HSTROP 10.3 pg/mL Normal 4.0-76.1 [facility] Comment on above: Result Comment: CUT- OFF POINTS HAVE BEEN ESTABLISHED BASED ON THE FOURTH UNIVERSAL DEFINITIONS OF MYOCARDIALINFARCTION. THE UPPER REFERENCE LIMIT (URL) OF TROPONIN, DEFINED THE 99TH PERCENTILE OFcTnI DISTRIBUTION IN A REFERENCE POPULATION, HAS BEEN CONFIRMED THE DECISION THRESHOLDFOR [place] DIAGNOSIS. Performed By: #### H STROPN ####[facility] Pkwcjupmct[address] [place] [address]Dr. Garima Pulliam HSTROP 9.2 pg/mL Normal 4.0-76.1 [facility] Comment on above: Result Comment: CUT- OFF POINTS HAVE BEEN ESTABLISHED BASED ON THE FOURTH UNIVERSAL DEFINITIONS OF MYOCARDIALINFARCTION. THE UPPER REFERENCE LIMIT (URL) OF TROPONIN, DEFINED THE 99TH PERCENTILE OFcTnI DISTRIBUTION IN A REFERENCE POPULATION, HAS BEEN CONFIRMED THE DECISION THRESHOLDFOR [place] DIAGNOSIS. Performed By: #### C MP, BNP, HSTROPN ####[facility] Jothszqujv6[address] [place] [address]Dr. Garima Pulliam XR CHEST 1 Von 01-12-2023 XR CHEST 1 V [facility] XR CHEST 1 Von 01-01-2023 XR CHEST 1 V Normal [facility] CARDIAC NASH 3-6on 3 CK [Catalytic activity/Vol] 196 U/L Normal 39-308 [facility] Comment on above: Performed By: #### C MREP ####[facility] Qqafetobmh1869 [place] [address]Dr. Garima Pulliam CK.MB [Mass/Vol] 7.41 ng/mL Critically high <=3.60 [facility] Comment on above: Performed By: #### C MREP ####[facility] Wzqoamusgw2180 [place] [address]Dr. Garima Pulliam HSTROP 10.3 pg/mL Normal 4.0-76.1 [facility] Comment on above: Result Comment: CUT- OFF POINTS HAVE BEEN ESTABLISHED BASED ON THE FOURTH UNIVERSAL DEFINITIONS OF MYOCARDIALINFARCTION. THE UPPER REFERENCE LIMIT (URL) OF TROPONIN, DEFINED THE 99TH PERCENTILE OFcTnI DISTRIBUTION IN A REFERENCE POPULATION, HAS BEEN CONFIRMED THE DECISION THRESHOLDFOR [place] DIAGNOSIS. Performed By: #### C MREP ####[facility] Kqmhlgnkdl6163 [place] [id number]. Garima Pulliam XR CHEST 1 Von 12-26-2022 XR CHEST 1 V [facility] BNPon 12-25-2022 Natriuretic peptide B (Bld) [Mass/Vol] 98.0 pg/mL Normal <=900.0 [facility] Comment on above: Performed By: #### B MARVIN FRENCH CMADM ####[facility] Waizbvqwdg79[address] [place] [address]Dr. Garima Pulliam CARDIAC NASH ADMITon 023 CK [Catalytic activity/Vol] 208 U/L Normal 39-308 [facility] Comment on above: Performed By: #### B MARVIN FRENCH CMADM ####[facility] Rdgpjvlowz0604 [place] [address]Dr. Garima Pulliam CK.MB [Mass/Vol] 7.63 ng/mL Critically high <=3.60 [facility] Comment on above: Performed By: #### B MARVIN FRENCH CMADM ####[facility] Drbtcfqqbt[address] [place], [place] [address]Dr. Garima Pulliam HSTROP 8.8 pg/mL Normal 4.0-76.1 [facility] Comment on above: Result Comment: CUT- OFF POINTS HAVE BEEN ESTABLISHED BASED ON THE FOURTH UNIVERSAL DEFINITIONS OF MYOCARDIALINFARCTION. THE UPPER REFERENCE LIMIT (URL) OF TROPONIN, DEFINED THE 99TH PERCENTILE OFcTnI DISTRIBUTION IN A REFERENCE POPULATION, HAS BEEN CONFIRMED THE DECISION THRESHOLDFOR [place] DIAGNOSIS. Performed By: #### B MARVIN FRENCH CMADM ####[facility] Jzcbnouctt[address] [place], [place] [address]Dr. Garima Pulliam DORIS 83 ng/mL Normal 16-96 [facility] Comment on above: Performed By: #### B MARVIN FRENCH CMADM ####[facility] Kxqdtqjtdm[address] [place], [place] [address]Dr. Garima Pulliam CBC AUTO DIFFon 12-25-2022 BASO # 0.0 103/ul Normal 0.0-0.1 [facility] Comment on above: Performed By: #### C BC ####[facility] Ogjghtzojb2[address] [place], [place] [address]Dr. Garima Pulliam Basophils/100 WBC (Bld) 0.0 % Critically low 0.2-2.0 [facility] Comment on above: Performed By: #### C BC ####[facility] Viydxzgzbr6209 [place] [address]Dr. Garima Pulliam EO # 0.0 103/ul Normal 0.0-0.7 [facility] Comment on above: Performed By: #### C BC ####[facility] Ehnvlcccqu[address] [place], [place] [address]Dr. Garima Pulliam Eosinophils/100 WBC (Bld) 0.7 % Critically low 0.9-7.0 [facility] Comment on above: Performed By: #### C BC ####[facility] Rdovsdcxqd654[address] [place], [place] [address]Dr. Garima Pulliam Erythrocyte distribution width (RBC) [Ratio] 13.4 % Normal 11.0-15.0 [facility] Comment on above: Performed By: #### C BC ####[facility] Txcwklgyxl[address] [place], [place] [address]Dr. Garima Pulliam Hematocrit (Bld) [Volume fraction] 42.9 % Normal 42.0-54.0 [facility] Comment on above: Performed By: #### C BC ####[facility] Zdwczymcwd[address] [place], [place] [address]Dr. Garima Pulliam Hemoglobin (Bld) [Mass/Vol] 14.4 g/dL Normal 14.0-18.0 [facility] Comment on above: Performed By: #### C BC ####[facility] Yocspvuowo08[address] [place], [place] [address]Dr. Garima Pulliam IG # 0.00 10e3/ul Normal 0.00-0.03 [facility] Comment on above: Performed By: #### C BC ####[facility] Rdvrnmojzy024[address] [place], [place] [address]Dr. Garima Pulliam IG % 0.0 % Normal 0.0-0.5 [facility] Comment on above: Performed By: #### C BC ####[facility] Xguqvlvqox27[address] [place], [place] [address]Dr. Garima Pulliam LYMPH # 2.4 103/ul Normal 1.2-3.8 [facility] Comment on above: Performed By: #### C BC ####[facility] Sznbtwwihp6996 [place] [phone]. Chapisrenu Pulliam Lymphocytes/100 WBC (Bld) 29.2 % Normal 20.5-60.0 [facility] Comment on above: Performed By: #### C BC ####[facility] Tnaydpxjfc5091 [place] [phone]. Garima Pulliam MANUAL DIFF REQ NO Normal [facility] Comment on above: Performed By: #### C BC ####[facility] Kaswkxqvjs7876 [place] [id number]. Garima Pulliam MCH (RBC) [Entitic mass] 30.7 pg Normal 25.9-34.0 [facility] Comment on above: Performed By: #### C BC ####[facility] Ifhsmijhpy[address] [place], [place] [address]Dr. Garima Pulliam MCHC (RBC) [Mass/Vol] 33.6 g/dL Normal 29.9-35.2 [facility] Comment on above: Performed By: #### C BC ####[facility] Culwmpffwx[address] [place], [place] [address]Dr. Garima Pulliam MCV (RBC) [Entitic vol] 91.5 fL Normal 80.0-94.0 [facility] Comment on above: Performed By: #### C BC ####[facility] Oqdlfdqugt[address] [place], [place] [address]Dr. Garima Pulliam MONO # 0.0 103/ul Critically low 0.3-0.8 [facility] Comment on above: Performed By: #### C BC ####[facility] Ezecxwkbhu9458 [place] [address]Dr. Garima Pulliam Monocytes/100 WBC (Bld) 8.0 % Normal 1.7-12.0 [facility] Comment on above: Performed By: #### C BC ####[facility] Usnpmqkutg[address] [place], [place] [address]Dr. Garima Pulliam NEUT # 5.1 103/ul Normal 1.4-6.5 [facility] Comment on above: Performed By: #### C BC ####[facility] [address]vfr39[address] [place], [place] [address]Pi. Garima Pulliam Neutrophils/100 WBC (Bld) 62.8 % Normal 43.0-75.0 [facility] Comment on above: Performed By: #### C BC ####[facility] Wziveerdvo7642 [place], [place] [address]Mv. Garima Pulliam Platelet mean volume (Bld) [Entitic vol] 8.6 fL Critically low 9.5-13.5 [facility] Comment on above: Performed By: #### C BC ####[facility] [address] [place] [id number]. Garima Pulliam PLT 200 103/ul Normal 150-450 [facility] Comment on above: Performed By: #### C BC ####[facility] Fyxoorzuae63[address] [place] [id number]. Garima Pulliam RBC 4.69 106/ul Critically low 4.70-6.10 [facility] Comment on above: Performed By: #### C BC ####[facility] Heosdadvpi038[address] [place], [place] [address]Nq. Garima Pulliam WBC 8.2 103/ul Normal 4.0-11.0 [facility] Comment on above: Performed By: #### C BC ####[facility] Dodabmehah[address] [place], [place] [address]Su. Garima Pulliam [facility]on SARS-CoV-2 (COVID-19) RNA MARIE+probe Ql (Unsp spec) Not detected Normal NOT DETECTED [facility] Comment on above: Result [...] for this test is supported by the Director Radio of Health and Human Service's declaration that [...] be used). Performed By: #### C VDTBH ####[facility] Tlkdncyxol[address] [place], [place] [address]Dr. Garima Pulliam INFLUENZA A AND B AGon 12-25 INFLUANEGH SEE BELOW Normal [facility] Comment on above: Result Comment: Nega tive for Flu A protein angiten. Infection due to Flu A cannot be ruled out. Flu A angiten in the sample may be below the detection limit of the test. Performed By: #### I NFLUAB ####[facility] Uribhdqv[address] [place], [place] [address]Dr. Garima Pulliam INFLUBNEGH SEE BELOW Normal [facility] Comment on above: Result Comment: Nega tive for Flu B protein antigen. Infection due to Flu B cannot be ruled out. Flu B antigen in the sample may be below the detection limit of the test. Performed By: #### I NFLUAB ####[facility] [address]xtvs[address] [place], [place] [address]Dr. Garima Pulliam INFLUENZA A AG Negative Normal NEGATIVE SEE COMMENT [facility] Comment on above: Performed By: #### I NFLUAB ####[facility] Hwlgwwh[address] [place], [place] [address]Dr. renu [facility] INFLUENZA B AG Negative Normal NEGATIVE SEE COMMENT [facility] Comment on above: Performed By: #### I NFLUAB ####[facility] Knehygscza[address] [place], [place] [address]Dr. Garima Pulliam PROF CHEM 8 (BAS METB)on Anion gap [Moles/Vol] 11.1 mmol/L Normal Th [facility] Comment on above: Performed By: #### B CLIENT SERVICE MANAGER, BMP, CMADM ####[facility] Ghtkegpmia[address] [place], [place] [address]Dr. Garima Pulliam Calcium [Mass/Vol] 8.5 mg/dL Normal 8.5-10.1 The [facility] Comment on above: Performed By: #### B CLIENT SERVICE MANAGER, MARVIN, CMADM ####[facility] [address]qkhaybnsn[address] [place] [phone]. Garima Pulliam Chloride [Moles/Vol] 106 mmol/L Normal 98-107 [facility] Comment on above: Performed By: #### B CLIENT SERVICE MANAGER, BMP, CMADM ####[facility] [address]psghrupfh[address] [place] [address]Dr. Garima Pulliam CO2 [Moles/Vol] 27.4 mmol/L Normal 21.0-32.0 The [facility] Comment on above: Performed By: #### B CLIENT SERVICE MANAGER, MARVIN, CMADM ####[facility] Sbjhqjvrqw[address] [place] [address]Dr. Garima Pulliam Creatinine [Mass/Vol] 0.65 mg/dL Critically low 0.70-1.30 [facility] Comment on above: Performed By: #### B CLIENT SERVICE MANAGER, MARVIN, CMADM ####[facility] [address] [place] [address]Dr. Garima Pulliam EGFR-AF LATVIAN >60 Normal >=60 [facility] Comment on above: Performed By: #### B CLIENT SERVICE MANAGER, BMP, CMADM ####[facility] Azvxgydfll[address] [place] [address]Dr. Garima Pulliam EGFR-NON AF LATVIAN >60 Normal >=60 [facility] Comment on above: Performed By: #### B CLIENT SERVICE MANAGER, BMP, CMADM ####[facility] Vvpjktjvwl[address] [place] [address]Dr. Garima Pulliam Glucose [Mass/Vol] 140 mg/dL Critically high 74-106 [facility] Comment on above: Performed By: #### B CLIENT SERVICE MANAGER, BMP, CMADM ####[facility] [address]vnffigs[address] [place] [address]Dr. Garima Pulliam Potassium [Moles/Vol] 3.5 mmol/L Normal 3.5-5.1 [facility] Comment on above: Performed By: #### B CLIENT SERVICE MANAGER, BMP, CMADM ####[facility] Rtd[address]tetvd[address] [place] [address]Dr. Garima Pulliam Sodium [Moles/Vol] 141 mmol/L Normal 136-145 [facility] Comment on above: Performed By: #### B CLIENT SERVICE MANAGER, BMP, CMADM ####[facility] Ziib[address]taeu[address] [place] [address]Dr. Garima Pulliam Urea nitrogen [Mass/Vol] 8.0 mg/dL Normal 7.0-18.0 [facility] Comment on above: Performed By: #### B CLIENT SERVICE MANAGER, BMP, CMADM ####[facility] Pjnbvyuyjc[address] [place] [address]Dr. Garima Pulliam Urea nitrogen/Creatinine [Mass ratio] 12.3 mg/mg Normal [facility] Comment on above: Performed By: #### B CLIENT SERVICE MANAGER, BMP, CMADM ####[facility] Jujciegdrr[address] [place], [place] [address]Dr. Garima Pulliam CARDIAC NASH ADMITon 023 CK [Catalytic activity/Vol] 165 U/L Normal 39-308 [facility] Comment on above: Performed By: #### B DAVID, CMADM ####[facility] Rwxfpcgt[address] [place], [place] [address]Dr. Garima Pulliam CK.MB [Mass/Vol] 6.48 ng/mL Critically high <=3.60 [facility] Comment on above: Performed By: #### B MP, CMADM ####[facility] Rpdyscdniy[address] [place], [place] [address]Dr. Garima Pulliam HSTROP 11.7 pg/mL Normal 4.0-76.1 [facility] Comment on above: Result Comment: CUT- OFF POINTS HAVE BEEN ESTABLISHED BASED ON THE FOURTH UNIVERSAL DEFINITIONS OF MYOCARDIALINFARCTION. THE UPPER REFERENCE LIMIT (URL) OF TROPONIN, DEFINED THE 99TH PERCENTILE OFcTnI DISTRIBUTION IN A REFERENCE POPULATION, HAS BEEN CONFIRMED THE DECISION THRESHOLDFOR NC DIAGNOSIS. Performed By: #### B MP, CMADM ####[facility] Rstetdypvw[address] [place], [place] [address]Dr. Garima Pulliam ODRIS 83 ng/mL Normal 16-96 [facility] Comment on above: Performed By: #### B MP, CMADM ####[facility] [address]wvhgyorkx[address] [place] [address]Dr. Garima Pulliam CBC AUTO DIFFon 12-10-2022 BASO # 0.0 103/ul Normal 0.0-0.1 [facility] Comment on above: Performed By: #### C BC ####[facility] Sbjpnpszyi[address] [place], [place] [address]Dr. Garima Heraclio Basophils/100 WBC (Bld) 0.3 % Normal 0.2-2.0 [facility] Comment on above: Performed By: #### C BC ####[facility] Yjygfgzqny[address] [place], [place] [address]Dr. Garima Pulliam EO # 0.1 103/ul Normal 0.0-0.7 [facility] Comment on above: Performed By: #### C BC ####[facility] Satjieacgu[address] [place], [place] [address]Dr. Garima Pulliam Eosinophils/100 WBC (Bld) 0.4 % Critically low 0.9-7.0 [facility] Comment on above: Performed By: #### C BC ####[facility] Jveftaxrdz[address] [place], [place] [address]Dr. Garima Pulliam Erythrocyte distribution width (RBC) [Ratio] 13.2 % Normal 11.0-15.0 [facility] Comment on above: Performed By: #### C BC ####[facility] Agjdixakie[address] [place], [place] [address]Dr. Garima Pulliam Hematocrit (Bld) [Volume fraction] 42.4 % Normal 42.0-54.0 [facility] Comment on above: Performed By: #### C BC ####[facility] Mwtykjrflw[address] [place], [place] [address]Dr. Garima Pulliam Hemoglobin (Bld) [Mass/Vol] 14.4 g/dL Normal 14.0-18.0 [facility] Comment on above: Performed By: #### C BC ####[facility] [address]imqid[address] [place] [id number]. Garima Heraclio IG # 0.05 10e3/ul Critically high 0.00-0.03 The [facility] Comment on above: Performed By: #### C BC ####[facility] Dlgjdaivyt[address] [place] [address]Dr. Garima Heraclio IG % 0.4 % Normal 0.0-0.5 [facility] Comment on above: Performed By: #### C BC ####[facility] Dvmogakpjq[address] [place], [place] [address]Dr. Garima Pulliam LYMPH # 0.8 103/ul Critically low 1.2-3.8 The [facility] Comment on above: Performed By: #### C BC ####[facility] Cjgqhuosxu[address] [place], [place] [address]Dr. Chapisrenu Pulliam Lymphocytes/100 WBC (Bld) 6.5 % Critically low 20.5-60.0 [facility] Comment on above: Performed By: #### C BC ####[facility] Osjsovvjmp[address] [place], [place] [address]Dr. Chapisrenu Pulliam MANUAL DIFF REQ NO Normal The [facility] Comment on above: Performed By: #### C BC ####[facility] Ekxdescecc[address] [place], [place] [address]DrAdalberto Garima Pulliam MCH (RBC) [Entitic mass] 30.5 pg Normal 25.9-34.0 [facility] Comment on above: Performed By: #### C BC ####[facility] [address]ps[address]om[address] [place], [place] [address]DrAdalberto Garima Heraclio MCHC (RBC) [Mass/Vol] 34.0 g/dL Normal 29.9-35.2 [facility] Comment on above: Performed By: #### C BC ####[facility] [address]xnejag[address] [place], [place] [address]DrAdalberto Garima Heraclio MCV (RBC) [Entitic vol] 89.8 fL Normal 80.0-94.0 [facility] Comment on above: Performed By: #### C BC ####[facility] [address]zcju[address] [place], [place] [address]Dr. Garima Pulliam MONO # 0.2 103/ul Critically low 0.3-0.8 The [facility] Comment on above: Performed By: #### C BC ####[facility] X[address]ky[address]hro[address] [place] [id number]. Garima Pulliam Monocytes/100 WBC (Bld) 2.0 % Normal 1.7-12.0 [facility] Comment on above: Performed By: #### C BC ####[facility] [address]rv[address] [place] [address]Dr. Chapisrenu Heraclio NEUT # 10.5 103/ul Critically high 1.4-6.5 The [facility] Comment on above: Performed By: #### C BC ####[facility] [address]hfqvgcf[address] [place] [address]Dr. Garima Pulliam Neutrophils/100 WBC (Bld) 90.4 % Critically high 43.0-75.0 [facility] Comment on above: Performed By: #### C BC ####[facility] Evlipqgdzh[address] [place] [address]Dr. Garima Pulliam Platelet mean volume (Bld) [Entitic vol] 9.4 fL Critically low 9.5-13.5 [facility] Comment on above: Performed By: #### C BC ####[facility] [address]rel[address]oc[address] [place] [address]Dr. Garima Pulliam PLT 198 103/ul Normal 150-450 [facility] Comment on above: Performed By: #### C BC ####[facility] [address]qxgky[address] [place] [address]Dr. Garima Pulliam RBC 4.72 106/ul Normal 4.70-6.10 [facility] Comment on above: Performed By: #### C BC ####[facility] [address]iflp[address] [place] [phone]. Garima Pulliam WBC 11.6 103/ul Critically high 4.0-11.0 The [facility] Comment on above: Performed By: #### C BC ####[facility] [address]wgsjl[address] [place] [address]DrAdalberto Pulliam PROF CHEM 8 (BAS METB)on Anion gap [Moles/Vol] 11.3 mmol/L Normal Th [facility] Comment on above: Performed By: #### B NANCY HERNANDEZ ####[facility] [address]jhf[address] [place] [address]Dr. Garima Pulliam Calcium [Mass/Vol] 8.9 mg/dL Normal 8.5-10.1 [facility] Comment on above: Performed By: #### B NANCY HERNANDEZ ####[facility] [address]lwjyqtdhc[address] [place] [address]Dr. Garima Pulliam Chloride [Moles/Vol] 103 mmol/L Normal 98-107 [facility] Comment on above: Performed By: #### B NANCY HERNANDEZ ####[facility] Maowvethnw[address] [place], [place] [address]Dr. Garima Pulliam CO2 [Moles/Vol] 28.2 mmol/L Normal 21.0-32.0 [facility] Comment on above: Performed By: #### NANCY Larkin MP ####[facility] [address]qroj[address] [place] [address]Dr. Chapisrenu Pulliam Creatinine [Mass/Vol] 0.60 mg/dL Critically low 0.70-1.30 [facility] Comment on above: Performed By: #### NANCY Larkin MP ####[facility] [address]attqf[address] [place] [address]Dr. Garima Pulliam EGFR-AF LATVIAN >60 Normal >=60 [facility] Comment on above: Performed By: #### NANCY Larkin MP ####[facility] Iexiswweut[address] [place] [address]Dr. Garima Pulliam EGFR-NON AF LATVIAN >60 Normal >=60 [facility] Comment on above: Performed By: #### NANCY Larkin MP ####[facility] Jzkiicttbw[address] [place], [place] [address]Dr. Garima Pulliam Glucose [Mass/Vol] 166 mg/dL Critically high 74-106 [facility] Comment on above: Performed By: #### B MP, CMADM ####[facility] [address]hbuqvtliy[address] [place] [address]Dr. Garima Pulliam Potassium [Moles/Vol] 3.5 mmol/L Normal 3.5-5.1 [facility] Comment on above: Performed By: #### B MP, CMADM ####[facility] [address]zcuwemfb[address] [place] [address]Dr. Garima Pulliam Sodium [Moles/Vol] 139 mmol/L Normal 136-145 The [facility] Comment on above: Performed By: #### B DAVID, CMADM ####[facility] Yklznvzapz4[address] [place] [address]Dr. Garima Heraclio Urea nitrogen [Mass/Vol] 9.0 mg/dL Normal 7.0-18.0 [facility] Comment on above: Performed By: #### B DAVID, NANCY ####[facility] Lks[address]fehlvt[address] [place], [place] [address]Dr. Garima Heraclio Urea nitrogen/Creatinine [Mass ratio] 15.0 mg/mg Normal [facility] Comment on above: Performed By: #### B DAVID, CMAANA ROSA ####[facility] Wutercwudg[address] [place], [place] [address]Dr. Garima Pulliam XR CHEST 1 Von 12-10-2022 XR CHEST 1 V Normal [facility] BNPon 11-27-2022 Natriuretic peptide B (Bld) [Mass/Vol] 95.0 pg/mL Normal <=900.0 [facility] Comment on above: Performed By: #### C MP, HSTROPN, BNP ####[facility] Xwyygpstbc[address] [place], [place] [address]Dr. Garima Heraclio CBC AUTO DIFFon 11-27-2022 BASO # 0.0 103/ul Normal 0.0-0.1 [facility] Comment on above: Performed By: #### C BC ####[facility] Mapefowxco[address] [place], [place] [address]Dr. Garima Heraclio Basophils/100 WBC (Bld) 0.2 % Normal 0.2-2.0 [facility] Comment on above: Performed By: #### C BC ####[facility] K[address]ongedeyj[address] [place] [id number]. Garima Pulliam EO # 0.2 103/ul Normal 0.0-0.7 [facility] Comment on above: Performed By: #### C BC ####[facility] Oekaxvjfsi89[address] [place] [phone]. Garima Pulliam Eosinophils/100 WBC (Bld) 2.0 % Normal 0.9-7.0 [facility] Comment on above: Performed By: #### C BC ####[facility] Cmxqduljgq[address] [place], [place] [address]Dr. Garima Pulliam Erythrocyte distribution width (RBC) [Ratio] 13.2 % Normal 11.0-15.0 [facility] Comment on above: Performed By: #### C BC ####[facility] Hkiwwbywzm[address] [place], [place] [address]Dr. Garima Pulliam Hematocrit (Bld) [Volume fraction] 42.4 % Normal 42.0-54.0 [facility] Comment on above: Performed By: #### C BC ####[facility] Sinlmakyyq[address] [place], [place] [address]Dr. Garima Pulliam Hemoglobin (Bld) [Mass/Vol] 14.4 g/dL Normal 14.0-18.0 [facility] Comment on above: Performed By: #### C BC ####[facility] Fkfvlchdli[address] [place], [place] [address]Dr. Garima Pulliam IG # 0.04 10e3/ul Critically high 0.00-0.03 The [facility] Comment on above: Performed By: #### C BC ####[facility] Odkwjwrlbp[address] [place], [place] [address]Dr. Garima Pulliam IG % 0.4 % Normal 0.0-0.5 [facility] Comment on above: Performed By: #### C BC ####[facility] Vbkietrscz[address] [place], [place] [address]Dr. Garima Pulliam LYMPH # 2.2 103/ul Normal 1.2-3.8 [facility] Comment on above: Performed By: #### C BC ####[facility] Lvmpxumafi70[address] [place] [phone]. Garima Pulliam Lymphocytes/100 WBC (Bld) 21.5 % Normal 20.5-60.0 [facility] Comment on above: Performed By: #### C BC ####[facility] Zdlilxvzah[address] [place] [phone]. Garima Heraclio MANUAL DIFF REQ NO Normal The [facility] Comment on above: Performed By: #### C BC ####[facility] Smovmifhvu77[address] [place] [phone]. Garima Heraclio MCH (RBC) [Entitic mass] 30.4 pg Normal 25.9-34.0 [facility] Comment on above: Performed By: #### C BC ####[facility] [address]em[address] [place] [address]Dr. Garima Heraclio MCHC (RBC) [Mass/Vol] 34.0 g/dL Normal 29.9-35.2 [facility] Comment on above: Performed By: #### C BC ####[facility] Zovtdvrdlo57[address] [place] [phone]. Garima Pulliam MCV (RBC) [Entitic vol] 89.6 fL Normal 80.0-94.0 [facility] Comment on above: Performed By: #### C BC ####[facility] Hftvsdmbax4[address] [place] [phone]. Garima Pulliam MONO # 0.8 103/ul Normal 0.3-0.8 [facility] Comment on above: Performed By: #### C BC ####[facility] Pfsnizdyao84[address] [place] [phone]. Chapisrenu Pulliam Monocytes/100 WBC (Bld) 7.7 % Normal 1.7-12.0 [facility] Comment on above: Performed By: #### C BC ####[facility] [address]wwxjvy[address] [place], [place] [address]Dr. Garima Pulliam NEUT # 7.0 103/ul Critically high 1.4-6.5 The [facility] Comment on above: Performed By: #### C BC ####[facility] Dlnckwezxo99[address] [place] [phone]. Garima Pulliam Neutrophils/100 WBC (Bld) 68.2 % Normal 43.0-75.0 [facility] Comment on above: Performed By: #### C BC ####[facility] Ckpebodikc[address] [place] [phone]. Chapisrenu Pulliam Platelet mean volume (Bld) [Entitic vol] 8.9 fL Critically low 9.5-13.5 [facility] Comment on above: Performed By: #### C BC ####[facility] [address]stuvzoowt[address] [place] [address]Dr. Garima Pulliam PLT 222 103/ul Normal 150-450 [facility] Comment on above: Performed By: #### C BC ####[facility] Vtqskcqklg13[address] [place] [address]Dr. Garima Pulliam RBC 4.73 106/ul Normal 4.70-6.10 [facility] Comment on above: Performed By: #### C BC ####[facility] [address]jmqepouzu[address] [place] [address]Dr. Garima Pulliam WBC 10.3 103/ul Normal 4.0-11.0 [facility] Comment on above: Performed By: #### C BC ####[facility] Xqyqxahzab[address] [place] [address]Dr. Garima Pulliam PROF 14(COMP METB)on 023 Albumin [Mass/Vol] 3.7 g/dL Normal 3.4-5.0 [facility] Comment on above: Performed By: #### C MP, HSTROPN, BNP ####[facility] Cmtsdbwyax[address]504 [place] [address]Dr. Chapisrenu Pulliam Albumin/Globulin [Mass ratio] 1.5 {ratio} Normal [facility] Comment on above: Performed By: #### C MP, HSTROPN, BNP ####[facility] Lsllphzenu40[address] [place] [address]Dr. Garima Pulliam ALP [Catalytic activity/Vol] 79 U/L Normal 46-116 [facility] Comment on above: Performed By: #### C MP, HSTROPN, BNP ####[facility] Tgpgcspulb0948 [place] [address]Dr. Garima Pulliam ALT [Catalytic activity/Vol] 32 U/L Normal 16-63 [facility] Comment on above: Performed By: #### C MP, HSTROPN, BNP ####[facility] Budnbiduke[address] [place] [address]Dr. Garima Pulliam Anion gap [Moles/Vol] 9.5 mmol/L Normal [facility] Comment on above: Performed By: #### C MP, HSTROPN, BNP ####[facility] Cjmczorscv[address] [place], [place] [address]Dr. Garima Pulliam AST [Catalytic activity/Vol] 25 U/L Normal 15-37 [facility] Comment on above: Performed By: #### C MP, HSTROPN, BNP ####[facility] Gzqpgojqxk[address] [place], [place] [address]Dr. Chapislan Pulliam Bilirubin [Mass/Vol] 0.4 mg/dL Normal 0.2-1.0 [facility] Comment on above: Performed By: #### C MP, HSTROPN, BNP ####[facility] Ythgapjrgj[address] [place], [place] [address]Dr. Garima Pulliam Calcium [Mass/Vol] 8.9 mg/dL Normal 8.5-10.1 [facility] Comment on above: Performed By: #### C MP, HSTROPN, BNP ####[facility] Rdcybpggum[address] [place], [place] [address]Dr. Chapislan Pulliam Chloride [Moles/Vol] 103 mmol/L Normal 98-107 [facility] Comment on above: Performed By: #### C MP, HSTROPN, BNP ####[facility] I[address]qumrics[address] [place], [place] [address]Dr. Yilan Pulliam CO2 [Moles/Vol] 28.6 mmol/L Normal 21.0-32.0 The [facility] Comment on above: Performed By: #### C MP, HSTROPN, BNP ####[facility] Klwuveenjb[address] [place] [address]Dr. Garima Pulliam Creatinine [Mass/Vol] 0.72 mg/dL Normal 0.70-1.30 [facility] Comment on above: Performed By: #### C MP, HSTROPN, BNP ####[facility] Hixhbwnlgk44[address] [place] [address]Dr. Garima Pulliam EGFR-AF LATVIAN >60 Normal >=60 [facility] Comment on above: Performed By: #### C MP, HSTROPN, BNP ####[facility] Gdhtxghiwt[address] [place] [address]Dr. Garima Pulliam EGFR-NON AF LATVIAN >60 Normal >=60 [facility] Comment on above: Performed By: #### C MP, HSTROPN, BNP ####[facility] Zohvgujhwq25[address] [place] [address]Dr. Garima Pulliam Globulin (S) [Mass/Vol] 2.5 g/dL Normal [facility] Comment on above: Performed By: #### C MP, HSTROPN, BNP ####[facility] Elnqdpujfr[address] [place], [place] [address]Dr. Garima Pulliam Glucose [Mass/Vol] 114 mg/dL Critically high 74-106 [facility] Comment on above: Performed By: #### C MP, HSTROPN, BNP ####[facility] Oairnajjal[address] [place], [place] [address]Dr. Garima Pulliam Potassium [Moles/Vol] 4.1 mmol/L Normal 3.5-5.1 [facility] Comment on above: Performed By: #### C MP, HSTROPN, BNP ####[facility] [address]qx[address]we[address] [place], [place] [address]Dr. Garima Pulliam Protein [Mass/Vol] 6.2 g/dL Critically low 6.4-8.2 Th [facility] Comment on above: Performed By: #### C MP, HSTROPN, BNP ####[facility] [address]ldxwdopeq[address] [place], [place] [address]Dr. Yilan Pulliam Sodium [Moles/Vol] 137 mmol/L Normal 136-145 [facility] Comment on above: Performed By: #### C MP, HSTROPN, BNP ####[facility] [facility] [address] [place] [address]Dr. Garima Pulliam Urea nitrogen [Mass/Vol] 13.0 mg/dL Normal 7.0-18.0 [facility] Comment on above: Performed By: #### C MP, HSTROPN, BNP ####[facility] [address] [place] [address]Dr. Garima Pulliam Urea nitrogen/Creatinine [Mass ratio] 18.1 mg/mg [facility] Comment on above: Performed By: #### C MP, HSTROPN, BNP ####[facility] [address] [place], [place] [address]Dr. Garima Pulliam TROPONIN, HIGH SENSITIVITYon 11-27-2022 HSTROP 11.8 pg/mL Normal 4.0-76.1 [facility] Comment on above: Result Comment: CUT- OFF POINTS HAVE BEEN ESTABLISHED BASED ON THE FOURTH UNIVERSAL DEFINITIONS OF MYOCARDIALINFARCTION. THE UPPER REFERENCE LIMIT (URL) OF TROPONIN, DEFINED THE 99TH PERCENTILE OFcTnI DISTRIBUTION IN A REFERENCE POPULATION, HAS BEEN CONFIRMED THE DECISION THRESHOLDFOR [place] DIAGNOSIS. Performed By: #### C MP, HSTROPN, BNP ####[facility] Abf[address] [place], [place] [address]Dr. Garima Pulliam XR CHEST 1 Von 11-27-2022 XR CHEST 1 V Normal [facility] BNPon 11-20-2022 Natriuretic peptide B (Bld) [Mass/Vol] 73.0 pg/mL Normal <=900.0 [facility] Comment on above: Performed By: #### B MP, HSTROPN, BNP ####[facility] Ivatuwcq[address] [place], [place] [address]Dr. Garima Pulliam CBC AUTO DIFFon 11-20-2022 BASO # 0.0 103/ul Normal 0.0-0.1 [facility] Comment on above: Performed By: #### C BC ####[facility] [address] [place] [id number]. Garima Pulliam Basophils/100 WBC (Bld) 0.3 % Normal 0.2-2.0 [facility] Comment on above: Performed By: #### C BC ####[facility] [address] [place] [id number]. Garima Pulliam EO # 0.2 103/ul Normal 0.0-0.7 [facility] Comment on above: Performed By: #### C BC ####[facility] [address] [place] [address]Dr. Garima Pulliam Eosinophils/100 WBC (Bld) 2.1 % Normal 0.9-7.0 [facility] Comment on above: Performed By: #### C BC ####[facility] [address]usof[address] [place], [place] [address]Dr. Garima Pulliam Erythrocyte distribution width (RBC) [Ratio] 13.2 % Normal 11.0-15.0 [facility] Comment on above: Performed By: #### C BC ####[facility] Lzrsc[address] [place], [place] [address]Dr. Garima Pulliam Hematocrit (Bld) [Volume fraction] 43.4 % Normal 42.0-54.0 [facility] Comment on above: Performed By: #### C BC ####[facility] [address] [place], [place] [id number]. Garima Pulliam Hemoglobin (Bld) [Mass/Vol] 14.6 g/dL Normal 14.0-18.0 [facility] Comment on above: Performed By: #### C BC ####[facility] [address] [place] [id number]. Garima Pulliam IG # 0.02 10e3/ul Normal 0.00-0.03 [facility] Comment on above: Performed By: #### C BC ####[facility] [address] [place] [address]Dr. Garima Pulliam IG % 0.2 % Normal 0.0-0.5 [facility] Comment on above: Performed By: #### C BC ####[facility] [address]rbqi[address] [place] [phone]. Garima Heraclio LYMPH # 2.1 103/ul Normal 1.2-3.8 [facility] Comment on above: Performed By: #### C BC ####[facility] [address]er[address] [place] [phone]. Garima Heraclio Lymphocytes/100 WBC (Bld) 19.2 % Critically low 20.5-60.0 [facility] Comment on above: Performed By: #### C BC ####[facility] [address]ky[address] [place] [phone]. Chapisrenu Pulliam MANUAL DIFF REQ NO Normal [facility] Comment on above: Performed By: #### C BC ####[facility] Aytayqpkks[address] [place] [phone]. Garima Heraclio MCH (RBC) [Entitic mass] 30.4 pg Normal 25.9-34.0 [facility] Comment on above: Performed By: #### C BC ####[facility] [address]wlpxor[address] [place] [address]Dr. Garima Pulliam MCHC (RBC) [Mass/Vol] 33.6 g/dL Normal 29.9-35.2 [facility] Comment on above: Performed By: #### C BC ####[facility] [address]lk[address] [place] [phone]. Garima Heraclio MCV (RBC) [Entitic vol] 90.4 fL Normal 80.0-94.0 [facility] Comment on above: Performed By: #### C BC ####[facility] [address]rmv[address]avd[address] [place] [phone]. Garima Heraclio MONO # 0.6 103/ul Normal 0.3-0.8 [facility] Comment on above: Performed By: #### C BC ####[facility] [address] [place] [address]Dr. Garima Heraclio Monocytes/100 WBC (Bld) 5.8 % Normal 1.7-12.0 [facility] Comment on above: Performed By: #### C BC ####[facility] [address] [place], [place] [address]Ou. Garima Pulliam NEUT # 7.8 103/ul Critically high 1.4-6.5 [facility] Comment on above: Performed By: #### C BC ####[facility] [address] [place] [phone]. Garima Pulliam Neutrophils/100 WBC (Bld) 72.4 % Normal 43.0-75.0 [facility] Comment on above: Performed By: #### C BC ####[facility] [address]ewb[address] [place] [phone]. Garima Pulliam Platelet mean volume (Bld) [Entitic vol] 8.7 fL Critically low 9.5-13.5 [facility] Comment on above: Performed By: #### C BC ####[facility] [address]tr[address]za[address] [place] [phone]. Garima Pulliam PLT 184 103/ul Normal 150-450 [facility] Comment on above: Performed By: #### C BC ####[facility] [address]fu[address] [place], [place] [address]Nl. Garima Pulliam RBC 4.80 106/ul Normal 4.70-6.10 [facility] Comment on above: Performed By: #### C BC ####[facility] [address]ztj[address] [place] [phone]. Garima Pulliam WBC 10.8 103/ul Normal 4.0-11.0 [facility] Comment on above: Performed By: #### C BC ####[facility] [address]apbzj[address] [place] [phone]. Garima Pulliam [facility]on [facility]-24 SARS-CoV-2 (COVID-19) RNA MARIE+probe Ql (Unsp spec) Not detected Normal NOT DETECTED [facility] Comment on above: Result [...] for this test is supported by the [place] of [employer] and Human Service's declaration that [...] be used). Performed By: #### C VDTBH ####[facility] Owluudylbg[address] [place], [place] [address]Dr. Garima Pulliam INFLUENZA A AND B AGon 11-[facility] SEE BELOW [facility] Comment on above: Result Comment: Nega tive for Flu A protein angiten. Infection due to Flu A cannot be ruled out. Flu A angiten in the sample may be below the detection limit of the test. Performed By: #### I NFLUAB ####[facility] Uckdr[address]vsd[address] [place], [place] [address]Dr. Garima Pulliam INFLUBNEGH SEE BELOW Normal [facility] Comment on above: Result Comment: Nega tive for Flu B protein antigen. Infection due to Flu B cannot be ruled out. Flu B antigen in the sample may be below the detection limit of the test. Performed By: #### I NFLUAB ####[facility] Dvqncbzf[address] [place], [place] [address]Dr. Garima Pulliam INFLUENZA A AG Negative Normal NEGATIVE SEE COMMENT [facility] Comment on above: Performed By: #### I NFLUAB ####[facility] Txdraevkrw[address] [place], [place] [address]Dr. Garima [facility] INFLUENZA B AG Negative Normal NEGATIVE SEE COMMENT [facility] Comment on above: Performed By: #### I NFLUAB ####[facility] [address]axzxpyzij[address] [place], [place] [address]Dr. Garima Pulliam PROF CHEM 8 (BAS METB)on Anion gap [Moles/Vol] 8.2 mmol/L Normal [facility] Comment on above: Performed By: #### B MP, HSTROPN, BNP ####[facility] [address] [place] [address]Dr. Garima Pulliam Calcium [Mass/Vol] 8.7 mg/dL Normal 8.5-10.1 [facility] Comment on above: Performed By: #### B MP, HSTROPN, BNP ####[facility] [address] [place] [address]Dr. Garima Pulliam Chloride [Moles/Vol] 103 mmol/L Normal 98-107 [facility] Comment on above: Performed By: #### B MP, HSTROPN, BNP ####[facility] Ved[address]jw[address] [place], [place] [address]Dr. Garima Pulliam CO2 [Moles/Vol] 29.4 mmol/L Normal 21.0-32.0 [facility] Comment on above: Performed By: #### B MP, HSTROPN, BNP ####[facility] Jtxx[address]qc[address] [place], [place] [address]Dr. Garima Pulliam Creatinine [Mass/Vol] 0.69 mg/dL Critically low 0.70-1.30 [facility] Comment on above: Performed By: #### B MP, HSTROPN, BNP ####[facility] [address]sp[address] [place] [address]Dr. Garima Pulliam EGFR-AF LATVIAN >60 Normal >=60 [facility] Comment on above: Performed By: #### B MP, HSTROPN, BNP ####[facility] Y[address]sh[address] [place], [place] [address]Dr. Garima Pulliam EGFR-NON AF LATVIAN >60 Normal >=60 [facility] Comment on above: Performed By: #### B MP, HSTROPN, BNP ####[facility] X[address]tx[address] [place] [address]Dr. Garima Pulliam Glucose [Mass/Vol] 209 mg/dL Critically high 74-106 [facility] Comment on above: Performed By: #### B MP, HSTROPN, BNP ####[facility] V[address]vy[address] [place] [address]Dr. Garima Pulliam Potassium [Moles/Vol] 3.6 mmol/L Normal 3.5-5.1 [facility] Comment on above: Performed By: #### B MP, HSTROPN, BNP ####[facility] Adv[address]vbhrv[address] [place] [address]Dr. Garima Pulliam Sodium [Moles/Vol] 137 mmol/L Normal 136-145 [facility] Comment on above: Performed By: #### B MP, HSTROPN, BNP ####[facility] S[address]fgc[address] [place] [address]Dr. Garima Pulliam Urea nitrogen [Mass/Vol] 11.0 mg/dL Normal 7.0-18.0 [facility] Comment on above: Performed By: #### B MP, HSTROPN, BNP ####[facility] [address]xl[address]ffjcdt[address] [place] [address]Dr. Garima Pulliam Urea nitrogen/Creatinine [Mass ratio] 15.9 mg/mg Normal [facility] Comment on above: Performed By: #### B MP, HSTROPN, BNP ####[facility] [address] [place] [address]Dr. Garima Pulliam TROPONIN, HIGH SENSITIVITYon 11-20-2022 HSTROP 8.7 pg/mL Normal 4.0-76.1 [facility] Comment on above: Result Comment: CUT- OFF POINTS HAVE BEEN ESTABLISHED BASED ON THE FOURTH UNIVERSAL DEFINITIONS OF MYOCARDIALINFARCTION. THE UPPER REFERENCE LIMIT (URL) OF TROPONIN, DEFINED THE 99TH PERCENTILE OFcTnI DISTRIBUTION IN A REFERENCE POPULATION, HAS BEEN CONFIRMED THE DECISION THRESHOLDFOR [place] DIAGNOSIS. Performed By: #### B MP, HSTROPN, BNP ####[facility] [address] [place] [address]Dr. Garima Pulliam XR CHEST 1 Von 11-20-2022 XR CHEST 1 V Normal [facility] XR CHEST 1 Von 10-02-2022 XR CHEST 1 V Normal [facility] BNPon 09-29-2022 Natriuretic peptide B (Bld) [Mass/Vol] 107.0 pg/mL Normal <=900.0 [facility] Comment on above: Performed By: #### C MP, BNP, CMADM ####[facility] [address] [place] [address]Dr. Garima Pulliam CARDIAC NASH ADMITon 022 CK [Catalytic activity/Vol] 190 U/L Normal 39-308 [facility] Comment on above: Performed By: #### C MP, BNP, CMADM ####[facility] [address] [place] [address]Dr. Garima Heraclio CK.MB [Mass/Vol] 11.11 ng/mL Critically high <=3.60 [facility] Comment on above: Performed By: #### C MP, BNP, CMADM ####[facility] [address]ym[address] [place] [address]Dr. Garima Pulliam HSTROP 11.8 pg/mL Normal 4.0-76.1 [facility] Comment on above: Result Comment: CUT- OFF POINTS HAVE BEEN ESTABLISHED BASED ON THE FOURTH UNIVERSAL DEFINITIONS OF MYOCARDIALINFARCTION. THE UPPER REFERENCE LIMIT (URL) OF TROPONIN, DEFINED THE 99TH PERCENTILE OFcTnI DISTRIBUTION IN A REFERENCE POPULATION, HAS BEEN CONFIRMED THE DECISION THRESHOLDFOR [place] DIAGNOSIS. Performed By: #### C MP, BNP, CMADM ####[facility] [address]opv[address] [place] [address]Dr. Garima Pulliam DORIS 133 ng/mL Critically high 16-96 [facility] Comment on above: Performed By: #### C MP, BNP, CMADM ####[facility] U[address]zn[address] [place] [address]Dr. Garima Heraclio CBC AUTO DIFFon 09-29-2022 BASO # 0.0 103/ul Normal 0.0-0.1 [facility] Comment on above: Performed By: #### C BC ####[facility] [address]xbum[address] [place] [address]Dr. Garima Heraclio Basophils/100 WBC (Bld) 0.2 % Normal 0.2-2.0 [facility] Comment on above: Performed By: #### C BC ####[facility] U[address]jhp[address] [place] [phone]. Garima Pulliam EO # 0.1 103/ul Normal 0.0-0.7 [facility] Comment on above: Performed By: #### C BC ####[facility] Uirefrmtqg5228 [place] [phone]. Garima Pulliam Eosinophils/100 WBC (Bld) 1.4 % Normal 0.9-7.0 [facility] Comment on above: Performed By: #### C BC ####[facility] Metgrtwabw[address] [place], [place] [address]Dr. Garima Pulliam Erythrocyte distribution width (RBC) [Ratio] 13.7 % Normal 11.0-15.0 [facility] Comment on above: Performed By: #### C BC ####[facility] Ryeuwvusuq[address] [place], [place] [address]Dr. Garima Pulliam Hematocrit (Bld) [Volume fraction] 45.4 % Normal 42.0-54.0 [facility] Comment on above: Performed By: #### C BC ####[facility] Okwvgkgpjo[address] [place], [place] [address]Dr. Garima Pulliam Hemoglobin (Bld) [Mass/Vol] 14.8 g/dL Normal 14.0-18.0 [facility] Comment on above: Performed By: #### C BC ####[facility] Wgs[address]pjala[address] [place], [place] [address]Dr. Garima Pulliam IG # 0.04 10e3/ul Critically high 0.00-0.03 [facility] Comment on above: Performed By: #### C BC ####[facility] Lkhqdrzvzs[address] [place], [place] [address]Dr. Garima Pulliam IG % 0.5 % Normal 0.0-0.5 [facility] Comment on above: Performed By: #### C BC ####[facility] C[address] [place], [place] [address]Dr. Garima Pulliam LYMPH # 1.1 103/ul Critically low 1.2-3.8 The [facility] Comment on above: Performed By: #### C BC ####[facility] Ocaxsiuwpg0[address] [place] [phone]. Garima Pulliam Lymphocytes/100 WBC (Bld) 12.7 % Critically low 20.5-60.0 [facility] Comment on above: Performed By: #### C BC ####[facility] Pcxzevhaja[address] [place] [phone]. Chapisrenu Pulliam MANUAL DIFF REQ NO Normal [facility] Comment on above: Performed By: #### C BC ####[facility] [address]ib[address] [place], [place] [id number]. Garima Heraclio MCH (RBC) [Entitic mass] 30.0 pg Normal 25.9-34.0 [facility] Comment on above: Performed By: #### C BC ####[facility] Y[address]hb[address]qkr[address] [place], [place] [address]Dr. Garima Heraclio MCHC (RBC) [Mass/Vol] 32.6 g/dL Normal 29.9-35.2 [facility] Comment on above: Performed By: #### C BC ####[facility] [address]juqxkty[address] [place], [place] [address]Dr. Garima Heraclio MCV (RBC) [Entitic vol] 91.9 fL Normal 80.0-94.0 [facility] Comment on above: Performed By: #### C BC ####[facility] F[address]awa[address] [place], [place] [address]Dr. Garima Pulliam MONO # 0.4 103/ul Normal 0.3-0.8 [facility] Comment on above: Performed By: #### C BC ####[facility] [address]xwmq[address] [place], [place] [address]Dr. Chapisrenu Pulliam Monocytes/100 WBC (Bld) 4.8 % Normal 1.7-12.0 [facility] Comment on above: Performed By: #### C BC ####[facility] Is[address]qfmzg[address] [place], [place] [address]Dr. Garima Pulliam NEUT # 7.1 103/ul Critically high 1.4-6.5 [facility] Comment on above: Performed By: #### C BC ####[facility] [address]ex[address]xm[address] [place], [place] [address]Ns. Garima Pulliam Neutrophils/100 WBC (Bld) 80.4 % Critically high 43.0-75.0 [facility] Comment on above: Performed By: #### C BC ####[facility] Vnvcelnvxb5134 [place] [phone]. Garima Pulliam Platelet mean volume (Bld) [Entitic vol] 9.1 fL Critically low 9.5-13.5 [facility] Comment on above: Performed By: #### C BC ####[facility] Wjc[address]jldgoh50[address] [place] [phone]. Garima Pulliam PLT 200 103/ul Normal 150-450 [facility] Comment on above: Performed By: #### C BC ####[facility] Hvgzlrbzjj364[address] [place] [phone]. Garima Pulliam RBC 4.94 106/ul Normal 4.70-6.10 [facility] Comment on above: Performed By: #### C BC ####[facility] Rziiahyrds[address] [place] [phone]. Garima Pulliam WBC 8.9 103/ul Normal 4.0-11.0 [facility] Comment on above: Performed By: #### C BC ####[facility] Pdormbhqvh4249 [place] [phone]. Garima Pulliam Covid-19 PCR (CVDTB)on SARS-CoV-2 (COVID-19) RNA MARIE+probe Ql (Unsp spec) Not detected Normal NOT DETECTED [facility] Comment on above: Result [...] for this test is supported by the [place] of [employer] and Human Service's declaration that [...] be used). Performed By: #### C VDTBH ####[facility] [address]uehfrti[address] [place] [address]Dr. Garima Pulliam LACTATE/LACTIC ACIDon 2021 Lactate [Moles/Vol] 1.7 mmol/L Normal 0.4-1.9 [facility] Comment on above: Performed By: #### L ACT ####[facility] [address]mbiwxomui[address] [place], [place] [address]Dr. Garima Pulliam PROF 14(COMP METB)on 022 Albumin [Mass/Vol] 3.8 g/dL Normal 3.4-5.0 [facility] Comment on above: Performed By: #### C MP, BNP, CMADM ####[facility] Frtpkvulct[address] [place], [place] [address]Dr. Garima Pulliam Albumin/Globulin [Mass ratio] 1.5 {ratio} Normal [facility] Comment on above: Performed By: #### C MP, BNP, CMADM ####[facility] [address]xeowwrpmq7[address] [place] [address]Dr. Garima Pulliam ALP [Catalytic activity/Vol] 62 U/L Normal 46-116 [facility] Comment on above: Performed By: #### C MP, BNP, CMADM ####[facility] [address]xbqdimxny7198 [place] [address]Dr. Garima Pulliam ALT [Catalytic activity/Vol] 37 U/L Normal 16-63 [facility] Comment on above: Performed By: #### C MP, BNP, CMADM ####[facility] Upnvkctmvf[address] [place] [address]Dr. Garima Pulliam Anion gap [Moles/Vol] 8.0 mmol/L Normal [facility] Comment on above: Performed By: #### C MP, BNP, CMADM ####[facility] Nknbkqcbcz59[address] [place] [address]Dr. Garima Pulliam AST [Catalytic activity/Vol] 20 U/L Normal 15-37 [facility] Comment on above: Performed By: #### C MP, BNP, CMADM ####[facility] Tkntmyvfay27[address] [place] [address]Dr. Garima Pulliam Bilirubin [Mass/Vol] 0.6 mg/dL Normal 0.2-1.0 [facility] Comment on above: Performed By: #### C MP, BNP, CMADM ####[facility] Ekjhjrmdvt0[address] [place] [address]Dr. Garima Pulliam Calcium [Mass/Vol] 9.1 mg/dL Normal 8.5-10.1 [facility] Comment on above: Performed By: #### C MP, BNP, CMADM ####[facility] [address]qfvdmmae[address] [place], [place] [address]Dr. Garima Pulliam Chloride [Moles/Vol] 103 mmol/L Normal 98-107 [facility] Comment on above: Performed By: #### C MP, BNP, CMADM ####[facility] T[address]vlranxc[address] [place], [place] [address]Dr. Garima Pulliam CO2 [Moles/Vol] 31.8 mmol/L Normal 21.0-32.0 [facility] Comment on above: Performed By: #### C MP, BNP, CMADM ####[facility] K[address] [place], [place] [address]Dr. Garima Pulliam Creatinine [Mass/Vol] 0.63 mg/dL Critically low 0.70-1.30 [facility] Comment on above: Performed By: #### C MP, BNP, CMADM ####[facility] [address] [place], [place] [address]Dr. Garima Pulliam EGFR-AF LATVIAN >60 Normal >=60 [facility] Comment on above: Performed By: #### C MP, BNP, CMADM ####[facility] Admlijxgxs[address] [place], [place] [address]Dr. Garima Pulliam EGFR-NON AF LATVIAN >60 Normal >=60 [facility] Comment on above: Performed By: #### C MP, BNP, CMADM ####[facility] [address]ylky[address] [place] [address]Dr. Garima Pulliam Globulin (S) [Mass/Vol] 2.6 g/dL [facility] Comment on above: Performed By: #### C MP, BNP, CMADM ####[facility] [address]jzxyswrkc74[address] [place] [address]Dr. Garima Pulliam Glucose [Mass/Vol] 103 mg/dL Normal 74-106 [facility] Comment on above: Performed By: #### C MP, BNP, CMADM ####[facility] Iibzkmixom67[address] [place] [address]Dr. Garima Pulliam Potassium [Moles/Vol] 3.8 mmol/L Normal 3.5-5.1 [facility] Comment on above: Performed By: #### C MP, BNP, CMADM ####[facility] Ppxnxjxmxe6[address] [place] [address]Dr. Garima Pulliam Protein [Mass/Vol] 6.4 g/dL Normal 6.4-8.2 [facility] Comment on above: Performed By: #### C MP, BNP, CMADM ####[facility] Dddzzuezvp7648 [place] [address]Dr. Garima Pulliam Sodium [Moles/Vol] 139 mmol/L Normal 136-145 [facility] Comment on above: Performed By: #### C MP, BNP, CMADM ####[facility] Ivrhoyioaa63[address] [place] [address]Dr. Garima Pulliam Urea nitrogen [Mass/Vol] 7.0 mg/dL Normal 7.0-18.0 [facility] Comment on above: Performed By: #### C MP, BNP, CMADM ####[facility] Ulayiwhrjs[address] [place] [address]Dr. Garima Pulliam Urea nitrogen/Creatinine [Mass ratio] 11.1 mg/mg [facility] Comment on above: Performed By: #### C MP, BNP, CMADM ####[facility] Byztsjcdng47[address] [place] [address]Dr. Garima Pulliam PROTIMEon 09-29-2022 INR Coag (PPP) [Relative time] 1.14 {INR} Normal [facility] Comment on above: Performed By: #### P T, PTT ####[facility] [address] [place], [place] [address]Dr. Garima Pulliam INR GUIDELINES SEE BELOW Normal [facility] Comment on above: Result Comment: WESLEY RED INR: 2.0 - 3.0 CONDITIONS NOT LISTED BELOW 2.5 - 3.5 FOR PROSTHETIC HEART VALVE REPLACEMENT 2.5 - 3.5 RECURRENT THROMBOSIS Performed By: #### P T, PTT ####[facility] [address] [address] [place], [place] [address]Dr. Garima Pulliam PT Coag (PPP) [Time] 12.2 s Critically high 9.0-11.6 [facility] Comment on above: Performed By: #### P T, PTT ####[facility] Ffw[address]ikv[address] [place], [place] [address]Dr. Garima Pulliam PTTon 09-29-2022 aPTT Coag (Bld) [Time] 29.3 s Normal 22.3-36.2 [facility] Comment on above: Performed By: #### P T, PTT ####[facility] Mhalwgisjg[address] [place], [place] [address]Dr. Garima Pulliam XR CHEST 1 Von 09-29-2022 XR CHEST 1 V Normal [facility] CBC AUTO DIFFon 09-26-2022 BASO # 0.0 103/ul Normal 0.0-0.1 [facility] Comment on above: Performed By: #### C BC ####[facility] Uelzcurw[address] [place], [place] [address]Dr. Garima Pulliam Basophils/100 WBC (Bld) 0.2 % Normal 0.2-2.0 [facility] Comment on above: Performed By: #### C BC ####[facility] Jtwigxexgf[address] [place], [place] [address]Dr. Garima Pulliam EO # 0.1 103/ul Normal 0.0-0.7 [facility] Comment on above: Performed By: #### C BC ####[facility] Hvb[address] [place], [place] [address]Dr. Garima Pulliam Eosinophils/100 WBC (Bld) 1.0 % Normal 0.9-7.0 [facility] Comment on above: Performed By: #### C BC ####[facility] Dtjwadsoqq[address] [place], [place] [address]Dr. Garima Pulliam Erythrocyte distribution width (RBC) [Ratio] 13.4 % Normal 11.0-15.0 [facility] Comment on above: Performed By: #### C BC ####[facility] Zozzaoxtlg[address] [place], [place] [address]Dr. Garima Pulliam Hematocrit (Bld) [Volume fraction] 46.3 % Normal 42.0-54.0 [facility] Comment on above: Performed By: #### C BC ####[facility] Pqlvaowrcb[address] [place], [place] [address]Dr. Garima Pulliam Hemoglobin (Bld) [Mass/Vol] 15.3 g/dL Normal 14.0-18.0 [facility] Comment on above: Performed By: #### C BC ####[facility] Vxkmwpwcvz[address] [place], [place] [address]Dr. Garima Pulliam IG # 0.05 10e3/ul Critically high 0.00-0.03 [facility] Comment on above: Performed By: #### C BC ####[facility] Camvyjoh[address] [place], [place] [address]Dr. Garima Pulliam IG % 0.4 % Normal 0.0-0.5 [facility] Comment on above: Performed By: #### C BC ####[facility] Ltbwklmjgh8[address] [place], [place] [address]Dr. Garima Pulliam LYMPH # 1.7 103/ul Normal 1.2-3.8 [facility] Comment on above: Performed By: #### C BC ####[facility] Yfsmmjjkcg50[address] [place], [place] [address]Dr. Garima Pulliam Lymphocytes/100 WBC (Bld) 12.7 % Critically low 20.5-60.0 [facility] Comment on above: Performed By: #### C BC ####[facility] [address] [place] [address]DrAdalberto Pulliam MANUAL DIFF REQ NO Normal [facility] Comment on above: Performed By: #### C BC ####[facility] [address]skifn[address]cj[address] [place] [address]Dr. Garima Pulliam MCH (RBC) [Entitic mass] 30.1 pg Normal 25.9-34.0 [facility] Comment on above: Performed By: #### C BC ####[facility] Mccfwmqeci[address] [place], [place] [address]Dr. Garima Pulliam MCHC (RBC) [Mass/Vol] 33.0 g/dL Normal 29.9-35.2 [facility] Comment on above: Performed By: #### C BC ####[facility] Bwxvajelq[address] [place], [place] [address]DrAdalberto Pulliam MCV (RBC) [Entitic vol] 91.1 fL Normal 80.0-94.0 [facility] Comment on above: Performed By: #### C BC ####[facility] Luxqmhifmn0[address] [place], [place] [address]DrAdalberto Pulliam MONO # 0.9 103/ul Critically high 0.3-0.8 [facility] Comment on above: Performed By: #### C BC ####[facility] Tyhfjliucs[address] [place], [place] [address]DrAdalberto Pulliam Monocytes/100 WBC (Bld) 7.0 % Normal 1.7-12.0 [facility] Comment on above: Performed By: #### C BC ####[facility] Pxykagzkus[address] [place], [place] [address]DrAdalberto Pulliam NEUT # 10.4 103/ul Critically high 1.4-6.5 The [facility] Comment on above: Performed By: #### C BC ####[facility] Sxxtztvwfe[address] [place], [place] [address]DrAdalberto Pulliam Neutrophils/100 WBC (Bld) 78.7 % Critically high 43.0-75.0 [facility] Comment on above: Performed By: #### C BC ####[facility] [address] [place] [address]Dr. Garima Pulliam Platelet mean volume (Bld) [Entitic vol] 8.9 fL Critically low 9.5-13.5 [facility] Comment on above: Performed By: #### C BC ####[facility] [address] [place] [address]Dr. Garima Pulliam PLT 195 103/ul Normal 150-450 [facility] Comment on above: Performed By: #### C BC ####[facility] Xvxaeoavtg[address] [place], [place] [address]Dr. Garima Pulliam RBC 5.08 106/ul Normal 4.70-6.10 [facility] Comment on above: Performed By: #### C BC ####[facility] Idzaaichtg6[address] [place], [place] [address]Dr. Garima Pulliam WBC 13.2 103/ul Critically high 4.0-11.0 The [facility] Comment on above: Performed By: #### C BC ####[facility] Cminxogoqe[address] [place], [place] [address]Dr. Garima Pulliam PROF 14(COMP METB)on 022 Albumin [Mass/Vol] 3.5 g/dL Normal 3.4-5.0 [facility] Comment on above: Performed By: #### C DAVID HSTROPN ####[facility] [address] [place] [address]Dr. Garima Pulliam Albumin/Globulin [Mass ratio] 1.2 {ratio} Normal [facility] Comment on above: Performed By: #### C RAFAT HERNANDEZTROPN ####[facility] [address]jhzecbdt[address] [place] [address]Dr. Garima Pulliam ALP [Catalytic activity/Vol] 71 U/L Normal 46-116 [facility] Comment on above: Performed By: #### C DAVID HSTROPN ####[facility] [address]ec[address]osbq[address] [place] [address]Dr. Garima Pulliam ALT [Catalytic activity/Vol] 37 U/L Normal 16-63 [facility] Comment on above: Performed By: #### C DAVID, HSTROPN ####[facility] [address]wkxhyt[address] [place] [address]Dr. Garima Pulliam Anion gap [Moles/Vol] 4.8 mmol/L Normal [facility] Comment on above: Performed By: #### C DAVID, HSTROPN ####[facility] Qwvqmpjhbv[address] [place], [place] [address]Dr. Garima Pulliam AST [Catalytic activity/Vol] 21 U/L Normal 15-37 [facility] Comment on above: Performed By: #### C DAVID, HSTROPN ####[facility] Eqedfsgaje[address] [place], [place] [address]Dr. Garima Pulliam Bilirubin [Mass/Vol] 0.3 mg/dL Normal 0.2-1.0 [facility] Comment on above: Performed By: #### C DAVID, HSTROPN ####[facility] [address]ir[address] [place] [address]Dr. Garima Pulliam Calcium [Mass/Vol] 8.9 mg/dL Normal 8.5-10.1 [facility] Comment on above: Performed By: #### C DAVID, HSTROPN ####[facility] [address]cyx[address] [place] [address]Dr. Garima Pulliam Chloride [Moles/Vol] 106 mmol/L Normal 98-107 [facility] Comment on above: Performed By: #### C DAVID, HSTROPN ####[facility] [address]ok[address] [place] [address]Dr. Garima Pulliam CO2 [Moles/Vol] 29.8 mmol/L Normal 21.0-32.0 The [facility] Comment on above: Performed By: #### C DAVID, HSTROPN ####[facility] [address]jfxrsxzp[address] [place] [address]Dr. Garima Pulliam Creatinine [Mass/Vol] 0.68 mg/dL Critically low 0.70-1.30 The [facility] Comment on above: Performed By: #### C MP, HSTROPN ####[facility] [address] [place] [address]Dr. Garima Pulliam EGFR-AF LATVIAN >60 Normal >=60 [facility] Comment on above: Performed By: #### C MP, HSTROPN ####[facility] [address]ouq[address] [place] [address]Dr. Chapislan Pulliam EGFR-NON AF LATVIAN >60 Normal >=60 [facility] Comment on above: Performed By: #### C MP, HSTROPN ####[facility] [address]fkj[address] [place] [address]Dr. Garima Pulliam Globulin (S) [Mass/Vol] 2.8 g/dL Normal [facility] Comment on above: Performed By: #### C MP, HSTROPN ####[facility] Rp[address]qxzwq[address] [place] [address]Dr. Garima Pulliam Glucose [Mass/Vol] 133 mg/dL Critically high 74-106 [facility] Comment on above: Performed By: #### C MP, HSTROPN ####[facility] [address]xftipfjwl[address] [place] [address]Dr. Chapisrenu Pulliam Potassium [Moles/Vol] 3.6 mmol/L Normal 3.5-5.1 [facility] Comment on above: Performed By: #### C MP, HSTROPN ####[facility] [address]so[address] [place] [address]Dr. Chapisrenu Pulliam Protein [Mass/Vol] 6.3 g/dL Critically low 6.4-8.2 [facility] Comment on above: Performed By: #### C MP, HSTROPN ####[facility] Kegduwxiuz[address] [place], [place] [address]Dr. Chapisrenu Pulliam Sodium [Moles/Vol] 137 mmol/L Normal 136-145 [facility] Comment on above: Performed By: #### C MP, HSTROPN ####[facility] Bmofvgxvcx[address] [place], [place] [address]Dr. Garima Pulliam Urea nitrogen [Mass/Vol] 15.0 mg/dL Normal 7.0-18.0 [facility] Comment on above: Performed By: #### C DAVID HSTROPN ####[facility] [address] [place] [address]Dr. Chapisernu Pulliam Urea nitrogen/Creatinine [Mass ratio] 22.1 mg/mg Normal [facility] Comment on above: Performed By: #### C DAVID HSTROPN ####[facility] [address] [place] [address]Dr. Garima Heraclio TROPONIN, HIGH SENSITIVITYon 09-26-2022 HSTROP 12.8 pg/mL Normal 4.0-76.1 [facility] Comment on above: Result Comment: CUT- OFF POINTS HAVE BEEN ESTABLISHED BASED ON THE FOURTH UNIVERSAL DEFINITIONS OF MYOCARDIALINFARCTION. THE UPPER REFERENCE LIMIT (URL) OF TROPONIN, DEFINED THE 99TH PERCENTILE OFcTnI DISTRIBUTION IN A REFERENCE POPULATION, HAS BEEN CONFIRMED THE DECISION THRESHOLDFOR [place] DIAGNOSIS. Performed By: #### C DAVID HSTROPN ####[facility] [address] [place] [address]Dr. Chapisrenu Pulliam XR CHEST 1 Von 09-26-2022 XR CHEST 1 V Normal [facility] XR CHEST 1 Von 09-16-2022 XR CHEST 1 V Normal [facility] CBC AUTO DIFFon 09-15-2022 BASO # 0.0 103/ul Normal 0.0-0.1 [facility] Comment on above: Performed By: #### C BC ####[facility] [address] [place] [address]Dr. Garima Heraclio Basophils/100 WBC (Bld) 0.1 % Critically low 0.2-2.0 [facility] Comment on above: Performed By: #### C BC ####[facility] [address]rsx[address]endg[address] [place] [address]Dr. Garima Pulliam EO # 0.0 103/ul Normal 0.0-0.7 [facility] Comment on above: Performed By: #### C BC ####[facility] [address]qzuqbux[address] [place] [address]Dr. Garima Pulliam Eosinophils/100 WBC (Bld) 0.1 % Critically low 0.9-7.0 [facility] Comment on above: Performed By: #### C BC ####[facility] Nixkr[address]kxy[address] [place] [address]Dr. Garima Pulliam Erythrocyte distribution width (RBC) [Ratio] 14.1 % Normal 11.0-15.0 [facility] Comment on above: Performed By: #### C BC ####[facility] Xwnuapbozh[address] [place], [place] [address]Dr. Garima Pulliam Hematocrit (Bld) [Volume fraction] 46.1 % Normal 42.0-54.0 [facility] Comment on above: Performed By: #### C BC ####[facility] Lokassqdtz[address] [place], [place] [address]Dr. Garima Pulliam Hemoglobin (Bld) [Mass/Vol] 15.0 g/dL Normal 14.0-18.0 [facility] Comment on above: Performed By: #### C BC ####[facility] Jrdxqambug[address] [place], [place] [address]Dr. Garima Pulliam IG # 0.03 10e3/ul Normal 0.00-0.03 [facility] Comment on above: Performed By: #### C BC ####[facility] Qzymkcufap[address] [place], [place] [address]Dr. Garima Pulliam IG % 0.3 % Normal 0.0-0.5 [facility] Comment on above: Performed By: #### C BC ####[facility] Urazz[address]xta[address] [place], [place] [address]Dr. Garima Pulliam LYMPH # 0.6 103/ul Critically low 1.2-3.8 The [facility] Comment on above: Performed By: #### C BC ####[facility] Nyfdsvhiqe[address] [place], [place] [address]Dr. Garima Pulliam Lymphocytes/100 WBC (Bld) 5.8 % Critically low 20.5-60.0 [facility] Comment on above: Performed By: #### C BC ####[facility] [address] [place] [id number]. Garima Pulliam MANUAL DIFF REQ NO Normal The [facility] Comment on above: Performed By: #### C BC ####[facility] W[address]qu[address]uhlb[address] [place] [id number]. Garima Pulliam MCH (RBC) [Entitic mass] 30.2 pg Normal 25.9-34.0 [facility] Comment on above: Performed By: #### C BC ####[facility] [address]iwp[address]qpz[address] [place] [address]Dr. Garima Pulliam MCHC (RBC) [Mass/Vol] 32.5 g/dL Normal 29.9-35.2 [facility] Comment on above: Performed By: #### C BC ####[facility] Edaljaryrg[address] [place] [address]Dr. Garima Pulliam MCV (RBC) [Entitic vol] 92.8 fL Normal 80.0-94.0 [facility] Comment on above: Performed By: #### C BC ####[facility] [address]tbvkn[address] [place] [address]Dr. Garima Heraclio MONO # 0.3 103/ul Normal 0.3-0.8 [facility] Comment on above: Performed By: #### C BC ####[facility] Ackiq[address]uhyl[address] [place] [phone]. Garima Heraclio Monocytes/100 WBC (Bld) 3.2 % Normal 1.7-12.0 [facility] Comment on above: Performed By: #### C BC ####[facility] [address]wr[address]oz[address] [place] [phone]. Garima Pulliam NEUT # 9.8 103/ul Critically high 1.4-6.5 [facility] Comment on above: Performed By: #### C BC ####[facility] Ysvfkkquri44[address] [place] [phone]. Garima Pulliam Neutrophils/100 WBC (Bld) 90.5 % Critically high 43.0-75.0 [facility] Comment on above: Performed By: #### C BC ####[facility] Jlufewzkgo[address] [place] [phone]. Garima Pulliam Platelet mean volume (Bld) [Entitic vol] 9.4 fL Critically low 9.5-13.5 [facility] Comment on above: Performed By: #### C BC ####[facility] Lxrvtovnty8[address] [place] [phone]. Garima Pulliam PLT 208 103/ul Normal 150-450 [facility] Comment on above: Performed By: #### C BC ####[facility] [address]lqsvprqps8[address] [place] [address]Dr. Garima Pulliam RBC 4.97 106/ul Normal 4.70-6.10 [facility] Comment on above: Performed By: #### C BC ####[facility] Cfeedthsfa[address] [place] [address]Dr. Garima Pulliam WBC 10.8 103/ul Normal 4.0-11.0 [facility] Comment on above: Performed By: #### C BC ####[facility] Ipimqvarps[address] [place] [address]Dr. Garima Pulliam PROF 14(COMP METB)on 022 Albumin [Mass/Vol] 4.0 g/dL Normal 3.4-5.0 [facility] Comment on above: Performed By: #### C MP ####[facility] Yczcnixzsr30[address] [place] [address]Dr. Garima Pulliam Albumin/Globulin [Mass ratio] 1.5 {ratio} Normal [facility] Comment on above: Performed By: #### C MP ####[facility] Unfrpekfqa[address] [place] [address]Dr. Garima Pulliam ALP [Catalytic activity/Vol] 73 U/L Normal 46-116 [facility] Comment on above: Performed By: #### C MP ####[facility] [address]ew[address] [place] [address]Dr. Garima Pulliam ALT [Catalytic activity/Vol] 42 U/L Normal 16-63 [facility] Comment on above: Performed By: #### C MP ####[facility] Jmlzmslgra[address] [place] [address]Dr. Garima Pulliam Anion gap [Moles/Vol] 9.1 mmol/L [facility] Comment on above: Performed By: #### C MP ####[facility] Ukonujctps[address] [place], [place] [address]Dr. Garima Pulliam AST [Catalytic activity/Vol] 28 U/L Normal 15-37 [facility] Comment on above: Performed By: #### C MP ####[facility] Jzhgeevlvw[address] [place], [place] [address]Dr. Garima Pulliam Bilirubin [Mass/Vol] 0.6 mg/dL Normal 0.2-1.0 [facility] Comment on above: Performed By: #### C MP ####[facility] Xvoonfvzsh[address] [place], [place] [address]Dr. Garima Pulliam Calcium [Mass/Vol] 8.6 mg/dL Normal 8.5-10.1 The [facility] Comment on above: Performed By: #### C MP ####[facility] Azpenammst[address] [place], [place] [address]Dr. Garima Pulliam Chloride [Moles/Vol] 105 mmol/L Normal 98-107 [facility] Comment on above: Performed By: #### C MP ####[facility] Llbhrszovt[address] [place], [place] [address]Dr. Garima Pulliam CO2 [Moles/Vol] 28.5 mmol/L Normal 21.0-32.0 The [facility] Comment on above: Performed By: #### C MP ####[facility] Keppeuoisq[address] [place], [place] [address]Dr. Garima Heraclio Creatinine [Mass/Vol] 0.78 mg/dL Normal 0.70-1.30 [facility] Comment on above: Performed By: #### C MP ####[facility] P[address]jhhpuuun[address] [place], [place] [address]Dr. Chapisrenu Heraclio EGFR-AF LATVIAN >60 Normal >=60 [facility] Comment on above: Performed By: #### C MP ####[facility] Bnewbljdig[address] [place], [place] [address]Dr. Garima Pulliam EGFR-NON AF LATVIAN >60 Normal >=60 [facility] Comment on above: Performed By: #### C MP ####[facility] Yzujikxsbv4326 [place] [address]Dr. Garima Pulliam Globulin (S) [Mass/Vol] 2.7 g/dL Normal [facility] Comment on above: Performed By: #### C MP ####[facility] Ttuqmvxrbs5[address] [place] [address]Dr. Garima Pulliam Glucose [Mass/Vol] 220 mg/dL Critically high 74-106 [facility] Comment on above: Performed By: #### C MP ####[facility] Rmdtkfyojc6222 [place] [address]Dr. Garima Pulliam Potassium [Moles/Vol] 3.6 mmol/L Normal 3.5-5.1 [facility] Comment on above: Performed By: #### C MP ####[facility] Jh[address]flfguz[address] [place], [place] [address]Dr. Garima Pulliam Protein [Mass/Vol] 6.7 g/dL Normal 6.4-8.2 [facility] Comment on above: Performed By: #### C MP ####[facility] Os[address]uservw[address] [place], [place] [address]Dr. Garima Pulliam Sodium [Moles/Vol] 139 mmol/L Normal 136-145 [facility] Comment on above: Performed By: #### C MP ####[facility] Ysyunmwstn[address] [place], [place] [address]Dr. Garima Pulliam Urea nitrogen [Mass/Vol] 11.0 mg/dL Normal 7.0-18.0 [facility] Comment on above: Performed By: #### C MP ####[facility] Lhbhsycgze[address] [place], [place] [address]Dr. Garima Pulliam Urea nitrogen/Creatinine [Mass ratio] 14.1 mg/mg Normal [facility] Comment on above: Performed By: #### C MP ####[facility] Gpvmbavims[address] [place], [place] [address]Dr. Garima Pulliam CARDIAC NASH 3-6on 2 CK [Catalytic activity/Vol] 240 U/L Normal 39-308 [facility] Comment on above: Performed By: #### C MREP ####[facility] Kborrpaijg5[address] [place] [address]Dr. Garima Pulliam CK.MB [Mass/Vol] 10.38 ng/mL Critically high <=3.60 [facility] Comment on above: Performed By: #### C MREP ####[facility] Gnwopjpskj4[address] [place] [address]Dr. Garima Pulliam HSTROP 18.5 pg/mL Normal 4.0-76.1 [facility] Comment on above: Result Comment: CUT- OFF POINTS HAVE BEEN ESTABLISHED BASED ON THE FOURTH UNIVERSAL DEFINITIONS OF MYOCARDIALINFARCTION. THE UPPER REFERENCE LIMIT (URL) OF TROPONIN, DEFINED THE 99TH PERCENTILE OFcTnI DISTRIBUTION IN A REFERENCE POPULATION, HAS BEEN CONFIRMED THE DECISION THRESHOLDFOR [place] DIAGNOSIS. Performed By: #### C MREP ####[facility] K[address]etktkuzp[address] [place] [address]Dr. Garima Pulliam CK [Catalytic activity/Vol] 257 U/L Normal 39-308 [facility] Comment on above: Performed By: #### C MREP ####[facility] Znmafztqgw[address] [place], [place] [address]Dr. Garima Pulliam CK.MB [Mass/Vol] 9.89 ng/mL Critically high <=3.60 [facility] Comment on above: Performed By: #### C MREP ####[facility] Leodmywazd[address] [place], [place] [address]Dr. Garima Pulliam HSTROP 16.9 pg/mL Normal 4.0-76.1 [facility] Comment on above: Result Comment: CUT- OFF POINTS HAVE BEEN ESTABLISHED BASED ON THE FOURTH UNIVERSAL DEFINITIONS OF MYOCARDIALINFARCTION. THE UPPER REFERENCE LIMIT (URL) OF TROPONIN, DEFINED THE 99TH PERCENTILE OFcTnI DISTRIBUTION IN A REFERENCE POPULATION, HAS BEEN CONFIRMED THE DECISION THRESHOLDFOR [place] DIAGNOSIS. Performed By: #### C MREP ####[facility] [address]uzxbhxdx13[address] [place] [address]Dr. Garima Heraclio CBC AUTO DIFFon 10-22-2022 BASO # 0.0 103/ul Normal 0.0-0.1 [facility] Comment on above: Performed By: #### C BC ####[facility] Pvhbraynhv5114 [place] [id number]. Garima Pulliam Basophils/100 WBC (Bld) 0.1 % Critically low 0.2-2.0 [facility] Comment on above: Performed By: #### C BC ####[facility] [address]zvntujtzd[address] [place] [address]Dr. Garima Pulliam EO # 0.0 103/ul Normal 0.0-0.7 [facility] Comment on above: Performed By: #### C BC ####[facility] Oltizxebpk[address] [place], [place] [address]Dr. Chapisrenu Heraclio Eosinophils/100 WBC (Bld) 0.0 % Critically low 0.9-7.0 [facility] Comment on above: Performed By: #### C BC ####[facility] Gsldshlbkk[address] [place], [place] [address]Dr. Garima Pulliam Erythrocyte distribution width (RBC) [Ratio] 13.6 % Normal 11.0-15.0 [facility] Comment on above: Performed By: #### C BC ####[facility] Pxgbxnucpc[address] [place], [place] [address]Dr. Garima Pulliam Hematocrit (Bld) [Volume fraction] 48.2 % Normal 42.0-54.0 [facility] Comment on above: Performed By: #### C BC ####[facility] Kvdwh[address]usr[address] [place], [place] [address]Dr. Garima Pulliam Hemoglobin (Bld) [Mass/Vol] 16.0 g/dL Normal 14.0-18.0 [facility] Comment on above: Performed By: #### C BC ####[facility] Syhcmdosgc[address] [place], [place] [address]Dr. Chapisrenu Heraclio IG # 0.02 10e3/ul Normal 0.00-0.03 [facility] Comment on above: Performed By: #### C BC ####[facility] [address] [place] [id number]. Garima Pulliam IG % 0.3 % Normal 0.0-0.5 [facility] Comment on above: Performed By: #### C BC ####[facility] [address] [place] [address]Dr. Garima Heraclio LYMPH # 0.5 103/ul Critically low 1.2-3.8 The [facility] Comment on above: Performed By: #### C BC ####[facility] [address]nrpknmg[address] [place] [address]Dr. Garima Heraclio Lymphocytes/100 WBC (Bld) 7.7 % Critically low 20.5-60.0 [facility] Comment on above: Performed By: #### C BC ####[facility] V[address] [place], [place] [address]Dr. Chapisrenu Pulliam MANUAL DIFF REQ NO Normal The [facility] Comment on above: Performed By: #### C BC ####[facility] [address] [place], [place] [address]Dr. Garima Heraclio MCH (RBC) [Entitic mass] 30.6 pg Normal 25.9-34.0 [facility] Comment on above: Performed By: #### C BC ####[facility] Fct[address] [place], [place] [address]Dr. Garima Pulliam MCHC (RBC) [Mass/Vol] 33.2 g/dL Normal 29.9-35.2 [facility] Comment on above: Performed By: #### C BC ####[facility] Dw[address] [place], [place] [address]Dr. Garima Heraclio MCV (RBC) [Entitic vol] 92.2 fL Normal 80.0-94.0 [facility] Comment on above: Performed By: #### C BC ####[facility] N[address] [place], [place] [address]Dr. Garima Pulliam MONO # 0.0 103/ul Critically low 0.3-0.8 The [facility] Comment on above: Performed By: #### C BC ####[facility] Iqhjmnhacl1287 [place] [id number]. Garima Pulliam Monocytes/100 WBC (Bld) 0.4 % Critically low 1.7-12.0 [facility] Comment on above: Performed By: #### C BC ####[facility] [address]epquskkwh[address] [place] [id number]. Garima Pulliam NEUT # 6.2 103/ul Normal 1.4-6.5 [facility] Comment on above: Performed By: #### C BC ####[facility] Uuk[address]unips[address] [place] [address]Dr. Garima Pulliam Neutrophils/100 WBC (Bld) 91.5 % Critically high 43.0-75.0 [facility] Comment on above: Performed By: #### C BC ####[facility] [address]sgjuck[address] [place] [address]Dr. Garima Pulliam Platelet mean volume (Bld) [Entitic vol] 8.7 fL Critically low 9.5-13.5 [facility] Comment on above: Performed By: #### C BC ####[facility] [address] [place] [address]Dr. Garima Pulliam PLT 179 103/ul Normal 150-450 [facility] Comment on above: Performed By: #### C BC ####[facility] Sybpuscuyz6554 [place] [phone]. Garima Pulliam RBC 5.23 106/ul Normal 4.70-6.10 [facility] Comment on above: Performed By: #### C BC ####[facility] Itrvrsqtjk3995 [place] [address]Dr. Garima Pulliam WBC 6.7 103/ul Normal 4.0-11.0 [facility] Comment on above: Performed By: #### C BC ####[facility] Eiytfvsgwb[address] [place] [address]Dr. Garima Pulliam PROF CHEM 8 (BAS METB)on Anion gap [Moles/Vol] 12.1 mmol/L Normal Th [facility] Comment on above: Performed By: #### B MP ####[facility] Xfgkg[address]qy55[address] [place] [phone]. Garima Pulliam Calcium [Mass/Vol] 8.7 mg/dL Normal 8.5-10.1 The [facility] Comment on above: Performed By: #### B MP ####[facility] Whgxddmltd4664 [place] [phone]. Garima Pulliam Chloride [Moles/Vol] 105 mmol/L Normal 98-107 [facility] Comment on above: Performed By: #### B MP ####[facility] Uaqxwcpbpn0923 [place] [phone]. Garima Pulliam CO2 [Moles/Vol] 25.5 mmol/L Normal 21.0-32.0 The [facility] Comment on above: Performed By: #### B MP ####[facility] Fgqfnsdyea8[address] [place] [address]Dr. Garima Pulliam Creatinine [Mass/Vol] 0.63 mg/dL Critically low 0.70-1.30 [facility] Comment on above: Performed By: #### B MP ####[facility] Treqzmanuu[address] [place] [address]Dr. Garima Pulliam EGFR-AF LATVIAN >60 Normal >=60 The [facility] Comment on above: Performed By: #### B MP ####[facility] Zzoxdmzicu[address] [place] [address]Dr. Garima Pulliam EGFR-NON AF LATVIAN >60 Normal >=60 [facility] Comment on above: Performed By: #### B MP ####[facility] Pnbgqrauco[address] [place] [address]Dr. Garima Pulliam Glucose [Mass/Vol] 162 mg/dL Critically high 74-106 [facility] Comment on above: Performed By: #### B MP ####[facility] O[address]xl[address] [place], [place] [address]Dr. Garima Pulliam Potassium [Moles/Vol] 3.6 mmol/L Normal 3.5-5.1 [facility] Comment on above: Performed By: #### B MP ####[facility] Tvoop[address]uxro[address] [place], [place] [address]Dr. Garima Pulliam Sodium [Moles/Vol] 139 mmol/L Normal 136-145 [facility] Comment on above: Performed By: #### B DAVID ####[facility] [address]zhghcys[address] [place] [address]Dr. Garima Pulliam Urea nitrogen [Mass/Vol] 9.0 mg/dL Normal 7.0-18.0 [facility] Comment on above: Performed By: #### B DAVID ####[facility] Xpjspidmmj7732 [place] [address]Dr. Garima Pulliam Urea nitrogen/Creatinine [Mass ratio] 14.3 mg/mg Normal [facility] Comment on above: Performed By: #### B DAVID ####[facility] Zlocsfajrj7[address] [place] [address]Dr. Chapisrenu Pulliam CARDIAC NASH ADMITon 09-12- 022 CK [Catalytic activity/Vol] 304 U/L Normal 39-308 [facility] Comment on above: Performed By: #### B NANCY HERNANDEZ ####[facility] Penmpaavmx5946 [place] [address]Dr. Garima Pulliam CK.MB [Mass/Vol] 11.81 ng/mL Critically high <=3.60 Th [facility] Comment on above: Performed By: #### B NANCY HERNANDEZ ####[facility] Engfybfakt7043 [place] [address]Dr. Garima Heraclio HSTROP 13.3 pg/mL Normal 4.0-76.1 [facility] Comment on above: Result Comment: CUT- OFF POINTS HAVE BEEN ESTABLISHED BASED ON THE FOURTH UNIVERSAL DEFINITIONS OF MYOCARDIALINFARCTION. THE UPPER REFERENCE LIMIT (URL) OF TROPONIN, DEFINED THE 99TH PERCENTILE OFcTnI DISTRIBUTION IN A REFERENCE POPULATION, HAS BEEN CONFIRMED THE DECISION THRESHOLDFOR NC DIAGNOSIS. Performed By: #### B NANCY HERNANDEZ ####[facility] Jtupbugfrb76[address] [place] [address]Dr. Garima Pulliam DORIS 133 ng/mL Critically high 16-96 [facility] Comment on above: Performed By: #### B NANCY HERNANDEZ ####[facility] Rbgmbsrkci[address]68 [place] [address]Dr. Garima Pulliam CBC AUTO DIFFon 09-12-2022 BASO # 0.0 103/ul Normal 0.0-0.1 [facility] Comment on above: Performed By: #### C BC ####[facility] [address] [place], [place] [address]Dr. Garima Heraclio Basophils/100 WBC (Bld) 0.2 % Normal 0.2-2.0 [facility] Comment on above: Performed By: #### C BC ####[facility] Zsckjdi[address]qr[address] [place], [place] [address]Dr. Garima Heraclio EO # 0.2 103/ul Normal 0.0-0.7 [facility] Comment on above: Performed By: #### C BC ####[facility] Amwzqtrteq[address] [place], [place] [address]Dr. Chapisrenu Pulliam Eosinophils/100 WBC (Bld) 1.3 % Normal 0.9-7.0 [facility] Comment on above: Performed By: #### C BC ####[facility] U[address]nxuqbxi[address] [place], [place] [address]Dr. Garima Pulliam Erythrocyte distribution width (RBC) [Ratio] 13.7 % Normal 11.0-15.0 [facility] Comment on above: Performed By: #### C BC ####[facility] [address]ec[address] [place], [place] [address]Dr. Garima Pulliam Hematocrit (Bld) [Volume fraction] 46.4 % Normal 42.0-54.0 [facility] Comment on above: Performed By: #### C BC ####[facility] Ttahpejidq[address] [place], [place] [address]Dr. Garima Pulliam Hemoglobin (Bld) [Mass/Vol] 15.7 g/dL Normal 14.0-18.0 [facility] Comment on above: Performed By: #### C BC ####[facility] [address]rayj[address] [place], [place] [address]Dr. Garima Pulliam IG # 0.04 10e3/ul Critically high 0.00-0.03 [facility] Comment on above: Performed By: #### C BC ####[facility] Mfhnxrzdvq9568 [place] [id number]. Garima Pulliam IG % 0.3 % Normal 0.0-0.5 [facility] Comment on above: Performed By: #### C BC ####[facility] Oqjupmelsh1735 [place] [id number]. Garima Pulliam LYMPH # 1.7 103/ul Normal 1.2-3.8 [facility] Comment on above: Performed By: #### C BC ####[facility] Wccoibakzj8426 [place] [phone]. Garima Pulliam Lymphocytes/100 WBC (Bld) 11.5 % Critically low 20.5-60.0 [facility] Comment on above: Performed By: #### C BC ####[facility] Nrzjnsucpb[address] [place] [phone]. Garima Pulliam MANUAL DIFF REQ NO Normal [facility] Comment on above: Performed By: #### C BC ####[facility] Ijgmrpkppa6916 [place] [phone]. Garima Pulliam MCH (RBC) [Entitic mass] 31.0 pg Normal 25.9-34.0 [facility] Comment on above: Performed By: #### C BC ####[facility] Zdlspehgqk4051 [place] [phone]. Garima Pulliam MCHC (RBC) [Mass/Vol] 33.8 g/dL Normal 29.9-35.2 [facility] Comment on above: Performed By: #### C BC ####[facility] Dzpqsylhef8709 [place] [phone]. Garima Pulliam MCV (RBC) [Entitic vol] 91.7 fL Normal 80.0-94.0 [facility] Comment on above: Performed By: #### C BC ####[facility] Dkleulqoib0209 [place] [phone]. Garima Heraclio MONO # 0.8 103/ul Normal 0.3-0.8 [facility] Comment on above: Performed By: #### C BC ####[facility] Fegbzdbmrd2578 [place] [phone]. Garima Pulliam Monocytes/100 WBC (Bld) 5.2 % Normal 1.7-12.0 [facility] Comment on above: Performed By: #### C BC ####[facility] Evrrrhbtkl3086 [place] [phone]. Garima Pulliam NEUT # 11.7 103/ul Critically high 1.4-6.5 The [facility] Comment on above: Performed By: #### C BC ####[facility] Xsqwaztmsg0896 [place] [phone]. Garima Pulliam Neutrophils/100 WBC (Bld) 81.5 % Critically high 43.0-75.0 [facility] Comment on above: Performed By: #### C BC ####[facility] Qggmdmpcaj8[address] [place] [address]Dr. Garima Pulliam Platelet mean volume (Bld) [Entitic vol] 8.6 fL Critically low 9.5-13.5 [facility] Comment on above: Performed By: #### C BC ####[facility] Hdpgmaaeyq8951 [place] [phone]. Garima Pulliam PLT 191 103/ul Normal 150-450 [facility] Comment on above: Performed By: #### C BC ####[facility] [address] [place], [place] [address]Dr. Garima Pulliam RBC 5.06 106/ul Normal 4.70-6.10 [facility] Comment on above: Performed By: #### C BC ####[facility] [address]tsp[address] [place], [place] [address]Dr. Garima Pulliam WBC 14.4 103/ul Critically high 4.0-11.0 The [facility] Comment on above: Performed By: #### C BC ####[facility] [address]rzub[address] [place], [place] [address]Dr. Garima Pluliam [facility]24 SARS-CoV-2 (COVID-19) RNA MARIE+probe Ql (Unsp spec) Not detected Normal NOT DETECTED The [facility] Comment on above: Result Comment: When [...] for this test is supported by the Director [employer] of Health and Human Service's declaration that [...] be used). Performed By: #### C VDTBH ####[facility] [address]vscwgkdw[address] [place], [place] [address]Dr. Garima Pulliam LACTATE/LACTIC ACIDon 2021 Lactate [Moles/Vol] 1.0 mmol/L Normal 0.4-1.9 [facility] Comment on above: Performed By: #### L ACT ####[facility] Qrfimbijtq[address] [place], [place] [address]Dr. Garima Pulliam PROF CHEM 8 (BAS METB)on Anion gap [Moles/Vol] 11.6 mmol/L Normal [facility] Comment on above: Performed By: #### B NANCY HERNANDEZ ####[facility] Xzmpvmhpeh[address] [place] [address]Dr. Garima Pulliam Calcium [Mass/Vol] 9.2 mg/dL Normal 8.5-10.1 [facility] Comment on above: Performed By: #### B NANCY HERNANDEZ ####[facility] [address]dbyrunlzq26[address] [place] [address]Dr. Garima Pulliam Chloride [Moles/Vol] 105 mmol/L Normal 98-107 [facility] Comment on above: Performed By: #### B MP, CMADM ####[facility] Fvgfkbuxyr0736 [place] [phone]. Garima Pulliam CO2 [Moles/Vol] 25.9 mmol/L Normal 21.0-32.0 [facility] Comment on above: Performed By: #### B DAVID, CMADM ####[facility] Iusgkqqptz[address] [place] [address]Dr. Garima Pulliam Creatinine [Mass/Vol] 0.72 mg/dL Normal 0.70-1.30 [facility] Comment on above: Performed By: #### B DAVID, CMADM ####[facility] Wgbgwkrozj36[address] [place] [id number]. Garima Pulliam EGFR-AF LATVIAN >60 Normal >=60 [facility] Comment on above: Performed By: #### B DAVID, CMADM ####[facility] Retoxe[address] [place] [address]Dr. Chapisrenu Pulliam EGFR-NON AF LATVIAN >60 Normal >=60 [facility] Comment on above: Performed By: #### B DAVID, CMAANA ROSA ####[facility] Aut[address] [place] [address]Dr. Garima Pulliam Glucose [Mass/Vol] 111 mg/dL Critically high 74-106 [facility] Comment on above: Performed By: #### B DAVID, CMADM ####[facility] [address]lylkjfvc[address] [place] [address]Dr. Chapisrenu Pulliam Potassium [Moles/Vol] 3.5 mmol/L Normal 3.5-5.1 [facility] Comment on above: Performed By: #### B DAVID, CMADM ####[facility] [address]rbwh[address] [place] [address]Dr. Chapisrenu Pulliam Sodium [Moles/Vol] 139 mmol/L Normal 136-145 [facility] Comment on above: Performed By: #### B DAVID, CMADM ####[facility] [address] [place] [address]Dr. Garima Pulliam Urea nitrogen [Mass/Vol] 7.0 mg/dL Normal 7.0-18.0 [facility] Comment on above: Performed By: #### B DAVID, CMADM ####[facility] [address] [place], [place] [address]Pv. Garima Pulliam Urea nitrogen/Creatinine [Mass ratio] 9.7 mg/mg Normal [facility] Comment on above: Performed By: #### B MP, CMADM ####[facility] [address] [place], [place] [address]Ya. Garima Pulliam XR CHEST 1 Von 09-12-2022 XR CHEST 1 V Normal [facility] Encounters Encounter Date Encounter Type [...] Facility:H1 Payers Date Payer Category Payer Unknown [id number] 1960 Medicaid [id number] 1960 Unknown [id number] 1960 Unknown [id number] 1954 Unknown [id number] 2.16.84 0.1.955812.3.579.2.593 1954 Unknown [id number] 2.16.84 0.1.012312.3.579.2.593 1954 Unknown [id number] 2.16.84 0.1.271687.3.579.2.593 1954 Unknown [id number] 2.16.84 0.1.611028.3.579.2.593 1954 Unknown [id number] 2.16.84 0.1.808449.3.579.2.593 1954 Unknown [id number] 2.16.84 0.1.689125.3.579.2.593 1954 Unknown [id number] 2.16.84 0.1.781674.3.579.2.593 1954 Unknown [id number] 2.16.84 0.1.747197.3.579.2.593 1954 Unknown [id number] 2.16.84 0.1.400157.3.579.2.593 1954 Unknown [id number] 2.16.84 0.1.863161.3.579.2.593 1954 Unknown [id number] 2.16.84 0.1.017504.3.579.2.593 1954 Unknown [id number] 2.16.84 0.1.469224.3.579.2.593 1954 Unknown [id number] 2.16.84 0.1.603263.3.579.2.593 1954 Unknown [id number] 2.16.84 0.1.869453.3.579.2.593 1954 Unknown [id number] 2.16.84 0.1.387433.3.579.2.593 1954 Unknown [id number] 2.16.84 0.1.087996.3.579.2.593 1954 Unknown [id number] 2.16.84 0.1.050869.3.579.2.593 1954 Unknown [id number] 2.16.84 0.1.601619.3.579.2.593 1954 Unknown [id number] 2.16.84 0.1.895749.3.579.2.593 1954 Unknown [id number] 2.16.84 0.1.156996.3.579.2.593 Summary Purpose Family History No Family History Records Found Advance Directives No Advanced Directives Records Found Additional Source Comments (unrecognized sect ion and content) No Status Records Found INFORMATION SOURCE (unrecogn ized section and content) DATE CREATED AUTHOR 04/08/2023 The [facility] FOR RECORDS PERTAINING TO PATIENTS WHO [...] BE BASED ON THE PRIMARY CLINICAL RECORDS. [facility] [employer] [facility]. provides no warranty or guarantee of the accuracy or completeness of information in this document.
[2024-09-21] MEDS: AZITHROMYCIN 250 MG TABLET 500 MG PO (18:56)
[2024-09-21] MEDS: PREDNISONE 20 MG TABLET 60 MG PO (18:56)
== END 2024-09-21 18:59 | disposition home or self-care (01) ==
PROVIDERS: Physician Assistant; Emergency Provider Emergency Medicine Emergency Medical Services
DX: R06.00 Dyspnea, unspecified (principal); J44.0 Chronic obstructive pulmonary disease with (acute) lower respiratory infection; F17.200 Nicotine dependence, unspecified, uncomplicated
CPT/HCPCS: 36415; 71045; 80053; 82800; 83880; 84484; 85025; 85610; 93005; 94640; 99285; J7512

== ENCOUNTER 2024-09-25 01:17 | Emergency (ER) | payer MEDICARE, SELFPAY ==
[2024-09-25] MEDS: IPRATROPIUM/ALBUTEROL SULFATE 3 ML AMPUL.NEB IH (01:14)
[2024-09-25] MEDS: ALBUTEROL SULFATE 200 PUFF/6.7 GM INHALER IH (01:14)
[2024-09-25] MEDS: IPRATROPIUM/ALBUTEROL SULFATE 3 ML AMPUL.NEB 18 ML IH (01:14)
[2024-09-25 01:17] VITALS: PULSE 74; O2SAT 94
--- OUTSIDE RECORDS SUMMARY | 2024-09-25 01:24 | XMS_ITS | CCD ---
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 Garima Pulliam Basophils/100 WBC (Bld) 0.3 % Normal 0.2-2.0 [facility] Comment on above: Performed By: #### C BC ####[facility] Snvjavyotk8108 [place] [address]DrAdalberto Pulliam EO # 0.3 103/ul Normal 0.0-0.7 [facility] Comment on above: Performed By: #### C BC ####[facility] [address]zeykepi[address] [place], [place] [address]Dr. Garima Pulliam Eosinophils/100 WBC (Bld) 2.8 % Normal 0.9-7.0 [facility] Comment on above: Performed By: #### C BC ####[facility] Dgaqvofkty5136 [place] [address]Dr. Garima Pulliam Erythrocyte distribution width (RBC) [Ratio] 13.4 % Normal 11.0-15.0 [facility] Comment on above: Performed By: #### C BC ####[facility] Fpsgdocxoi0927 [place] [address]Dr. Garima Pulliam Hematocrit (Bld) [Volume fraction] 45.7 % Normal 42.0-54.0 [facility] Comment on above: Performed By: #### C BC ####[facility] Ezoliilfis6311 [place] [address]Dr. Garima Pulliam Hemoglobin (Bld) [Mass/Vol] 15.2 g/dL Normal 14.0-18.0 [facility] Comment on above: Performed By: #### C BC ####[facility] Vprrujbnjx1881 [place] [address]Dr. Garima Pulliam IG # 0.02 10e3/ul Normal 0.00-0.03 [facility] Comment on above: Performed By: #### C BC ####[facility] Lkkwxmxcif5529 [place] [address]Dr. Garima Pulliam IG % 0.2 % Normal 0.0-0.5 [facility] Comment on above: Performed By: #### C BC ####[facility] Frokvwfiun3215 [place] [address]Dr. Garima Pulliam LYMPH # 2.1 103/ul Normal 1.2-3.8 [facility] Comment on above: Performed By: #### C BC ####[facility] Llxbdchrif4858 [place] [address]Dr. Garima Pulliam Lymphocytes/100 WBC (Bld) 23.7 % Normal 20.5-60.0 [facility] Comment on above: Performed By: #### C BC ####[facility] Duxzajcxwx5[address] [place] [address]Dr. Garima Heraclio MANUAL DIFF REQ NO Normal [facility] Comment on above: Performed By: #### C BC ####[facility] Jxrxewrumb0827 [place] [address]Dr. Garima Pulliam MCH (RBC) [Entitic mass] 30.4 pg Normal 25.9-34.0 [facility] Comment on above: Performed By: #### C BC ####[facility] Unamyxfejm5291 [place] [address]Dr. Garima Heraclio MCHC (RBC) [Mass/Vol] 33.3 g/dL Normal 29.9-35.2 [facility] Comment on above: Performed By: #### C BC ####[facility] Bmapgpeqtf[address] [place], [place] [address]Dr. Chapisrenu Pulliam MCV (RBC) [Entitic vol] 91.4 fL Normal 80.0-94.0 [facility] Comment on above: Performed By: #### C BC ####[facility] Uvpfqwcbst[address] [place], [place] [address]Dr. Garima Heraclio MONO # 0.7 103/ul Normal 0.3-0.8 [facility] Comment on above: Performed By: #### C BC ####[facility] Jbncpkmwxj[address] [place], [place] [address]Dr. Chapisrenu Pulliam Monocytes/100 WBC (Bld) 8.3 % Normal 1.7-12.0 [facility] Comment on above: Performed By: #### C BC ####[facility] Gfqthgxcen6569 [place] [address]Dr. Chapisrenu Heraclio NEUT # 5.8 103/ul Normal 1.4-6.5 [facility] Comment on above: Performed By: #### C BC ####[facility] Xlkjgdasuh9[address] [place], [place] [address]Dr. Garima Pulliam Neutrophils/100 WBC (Bld) 64.7 % Normal 43.0-75.0 [facility] Comment on above: Performed By: #### C BC ####[facility] Wptueekgvt5154 [place] [address]Dr. Garima Pulliam Platelet mean volume (Bld) [Entitic vol] 8.6 fL Critically low 9.5-13.5 [facility] Comment on above: Performed By: #### C BC ####[facility] Ripxsdtftq2426 [place] [address]Dr. Garima Pulliam PLT 230 103/ul Normal 150-450 [facility] Comment on above: Performed By: #### C BC ####[facility] Setflkwpyx1016 [place] [address]Dr. Chapisrenu Heraclio RBC 5.00 106/ul Normal 4.70-6.10 [facility] Comment on above: Performed By: #### C BC ####[facility] Urkjjzatky4193 [place] [address]Dr. Garima Heraclio WBC 9.0 103/ul Normal 4.0-11.0 [facility] Comment on above: Performed By: #### C BC ####[facility] Sspmoabcfr2934 [place] [address]Dr. Garima Pulliam MAGNESIUMon 04-04-2023 Magnesium [Mass/Vol] 1.8 mg/dL Normal 1.8-2.4 [facility] Comment on above: Performed By: #### M G ####[facility] Kvxtdjpwmv4376 [place] [address]Dr. Chapisrenu Pulliam PROF 14(COMP METB)on 023 Albumin [Mass/Vol] 3.8 g/dL Normal 3.4-5.0 [facility] Comment on above: Performed By: #### C MP ####[facility] Stzikdtceh4579 [place] [address]Dr. Garima Pulliam Albumin/Globulin [Mass ratio] 1.2 {ratio} Normal [facility] Comment on above: Performed By: #### C MP ####[facility] Izssuigfpn0743 [place] [address]Dr. Garima Heraclio ALP [Catalytic activity/Vol] 84 U/L Normal 46-116 [facility] Comment on above: Performed By: #### C MP ####[facility] Aifjflmgdj4377 [place] [id number]. Garima Pulliam ALT [Catalytic activity/Vol] 31 U/L Normal 16-63 [facility] Comment on above: Performed By: #### C MP ####[facility] Qhfrwpmtcl2090 [place] [address]Dr. Garima Pulliam Anion gap [Moles/Vol] 12.2 mmol/L Normal [facility] Comment on above: Performed By: #### C MP ####[facility] Ptnhduxrql2237 [place] [address]Dr. Garima Pulliam AST [Catalytic activity/Vol] 23 U/L Normal 15-37 [facility] Comment on above: Performed By: #### C MP ####[facility] Lsrzkiqmzf[address] [place], [place] [address]Dr. Garima Pulliam Bilirubin [Mass/Vol] 0.5 mg/dL Normal 0.2-1.0 [facility] Comment on above: Performed By: #### C MP ####[facility] Ulwrdnerjk4740[address] [place], [place] [address]Dr. Garima Pulliam Calcium [Mass/Vol] 9.2 mg/dL Normal 8.5-10.1 [facility] Comment on above: Performed By: #### C MP ####[facility] Ovmvdnmvwp[address] [place], [place] [address]Dr. Garima Pulliam Chloride [Moles/Vol] 103 mmol/L Normal 98-107 [facility] Comment on above: Performed By: #### C MP ####[facility] Ckwdrqqumg5383 [place] [address]Dr. Garima Pulliam CO2 [Moles/Vol] 28.5 mmol/L Normal 21.0-32.0 [facility] Comment on above: Performed By: #### C MP ####[facility] Fdhdfpacei[address] [place], [place] [address]Dr. Garima Pulliam Creatinine [Mass/Vol] 0.74 mg/dL Normal 0.70-1.30 [facility] Comment on above: Performed By: #### C MP ####[facility] Tusvnftcfb3107 [place] [id number]. Garima Pulliam EGFR-AF MOSOTHO >60 Normal >=60 [facility] Comment on above: Performed By: #### C MP ####[facility] Tukeywbtbj8052 [place] [address]Dr. Garima Heraclio EGFR-NON AF MOSOTHO >60 Normal >=60 [facility] Comment on above: Performed By: #### C MP ####[facility] Ecdyexqpuo6519 [place] [id number]. Garima Heraclio Globulin (S) [Mass/Vol] 3.1 g/dL Normal [facility] Comment on above: Performed By: #### C MP ####[facility] Oeoqwoyvvk[address] [place], [place] [address]Dr. Garima Heraclio Glucose [Mass/Vol] 93 mg/dL Normal 74-106 [facility] Comment on above: Performed By: #### C MP ####[facility] Rhxxsffpge295[address] [place], [place] [address]Dr. Garima Heraclio Potassium [Moles/Vol] 3.7 mmol/L Normal 3.5-5.1 [facility] Comment on above: Performed By: #### C MP ####[facility] Ieroffakue033[address] [place], [place] [address]Dr. Garima Heraclio Protein [Mass/Vol] 6.9 g/dL Normal 6.4-8.2 [facility] Comment on above: Performed By: #### C MP ####[facility] Zdkbtawckz40[address] [place], [place] [address]Dr. Garima Heraclio Sodium [Moles/Vol] 140 mmol/L Normal 136-145 [facility] Comment on above: Performed By: #### C MP ####[facility] Ilomrkleot9[address] [place], [place] [address]Dr. Garima Pulliam Urea nitrogen [Mass/Vol] 8.0 mg/dL Normal 7.0-18.0 [facility] Comment on above: Performed By: #### C MP ####[facility] Dfppgkfmkd7[address] [place], [place] [address]Dr. Garima Pulliam Urea nitrogen/Creatinine [Mass ratio] 10.8 mg/mg Normal [facility] Comment on above: Performed By: #### C DAVID ####[facility] Smkwdtqwyh2509 [place] [address]Dr. Garima Pulliam AMMONIAon 03-30-2023 Ammonia (P) [Moles/Vol] 11 umol/L Normal 11-32 [facility] Comment on above: Performed By: #### A MM ####[facility] Frfnpdqlhb70[address] [place], [place] [address]Dr. Garima Pluliam CARDIAC NASH ADMITon 023 CK [Catalytic activity/Vol] 232 U/L Normal 39-308 [facility] Comment on above: Performed By: #### C NANCY HERNANDEZ ####[facility] Vphvhaiayu4347 [place] [address]Dr. Chapisrenu Pulliam CK.MB [Mass/Vol] 4.83 ng/mL Critically high <=3.60 [facility] Comment on above: Performed By: #### C NANCY HERNANDEZ ####[facility] Rmobmvcepq44[address] [place], [place] [address]Dr. Garima Pulliam HSTROP 10.5 pg/mL Normal 4.0-76.1 [facility] Comment on above: Result Comment: CUT- OFF POINTS HAVE BEEN ESTABLISHED BASED ON THE FOURTH UNIVERSAL DEFINITIONS OF MYOCARDIALINFARCTION. THE UPPER REFERENCE LIMIT (URL) OF TROPONIN, DEFINED THE 99TH PERCENTILE OFcTnI DISTRIBUTION IN A REFERENCE POPULATION, HAS BEEN CONFIRMED THE DECISION THRESHOLDFOR CT DIAGNOSIS. Performed By: #### C NANCY HERNANDEZ ####[facility] Ebgpobbtep[address] [place], [place] [address]Dr. Garima Heraclio DORIS 79 ng/mL Normal 16-96 [facility] Comment on above: Performed By: #### C NANCY HERNANDEZ ####[facility] Rfdoycgnef[address] [place], [place] [address]Dr. Garima Heraclio CBC AUTO DIFFon 03-30-2023 BASO # 0.0 103/ul Normal 0.0-0.1 [facility] Comment on above: Performed By: #### C BC ####[facility] Aubpefrsdm8677 [place] [id number]. Garima Pulliam Basophils/100 WBC (Bld) 0.1 % Critically low 0.2-2.0 [facility] Comment on above: Performed By: #### C BC ####[facility] Bphzvuqgdp6844 [place] [id number]. Garima Pulliam EO # 0.3 103/ul Normal 0.0-0.7 [facility] Comment on above: Performed By: #### C BC ####[facility] Syp[address]akgd[address] [place], [place] [address]Dr. Garima uPlliam Eosinophils/100 WBC (Bld) 3.3 % Normal 0.9-7.0 [facility] Comment on above: Performed By: #### C BC ####[facility] Sufnewrjpy[address] [place], [place] [address]Dr. Garima Pulliam Erythrocyte distribution width (RBC) [Ratio] 13.5 % Normal 11.0-15.0 [facility] Comment on above: Performed By: #### C BC ####[facility] V[address]kfpr[address] [place], [place] [address]Dr. Garima Pulliam Hematocrit (Bld) [Volume fraction] 42.9 % Normal 42.0-54.0 [facility] Comment on above: Performed By: #### C BC ####[facility] [address] [place], [place] [address]Dr. Garima Pulliam Hemoglobin (Bld) [Mass/Vol] 13.9 g/dL Critically low 14.0-18.0 [facility] Comment on above: Performed By: #### C BC ####[facility] Hvepyygkhu6994 [place] [id number]. Garima Pulliam IG # 0.01 10e3/ul Normal 0.00-0.03 [facility] Comment on above: Performed By: #### C BC ####[facility] V[address]emgvdw[address] [place], [place] [address]Dr. Garima Pulliam IG % 0.1 % Normal 0.0-0.5 [facility] Comment on above: Performed By: #### C BC ####[facility] Xqdqcqndzy6349 [place] [id number]. Garima Pulliam LYMPH # 1.7 103/ul Normal 1.2-3.8 [facility] Comment on above: Performed By: #### C BC ####[facility] Mldpzdpfeu7057 [place], [place] [address]Wz. Garima Pulliam Lymphocytes/100 WBC (Bld) 22.8 % Normal 20.5-60.0 [facility] Comment on above: Performed By: #### C BC ####[facility] Whnrdfmwuq1916 [place] [id number]. Garima Heraclio MANUAL DIFF REQ NO Normal [facility] Comment on above: Performed By: #### C BC ####[facility] Yovkpmnwng2821 [place] [id number]. Garima Heraclio MCH (RBC) [Entitic mass] 30.5 pg Normal 25.9-34.0 [facility] Comment on above: Performed By: #### C BC ####[facility] Wudmgzwwjp7216 [place] [id number]. Garima Pulliam MCHC (RBC) [Mass/Vol] 32.4 g/dL Normal 29.9-35.2 [facility] Comment on above: Performed By: #### C BC ####[facility] Xfodnrxrty4859 [place] [id number]. Garima Heraclio MCV (RBC) [Entitic vol] 94.1 fL Critically high 80.0-94.0 [facility] Comment on above: Performed By: #### C BC ####[facility] Yzyeeqndhk1527 [place] [id number]. Garima Heraclio MONO # 0.7 103/ul Normal 0.3-0.8 [facility] Comment on above: Performed By: #### C BC ####[facility] Kuzjscrzpq8390 [place] [id number]. Garima Heraclio Monocytes/100 WBC (Bld) 8.6 % Normal 1.7-12.0 [facility] Comment on above: Performed By: #### C BC ####[facility] Omqzsgkjal8729 [place] [id number]. Garima Pulliam NEUT # 4.9 103/ul Normal 1.4-6.5 [facility] Comment on above: Performed By: #### C BC ####[facility] Thvxoqlyzg4106 [place] [address]Dr. Garima Pulliam Neutrophils/100 WBC (Bld) 65.1 % Normal 43.0-75.0 [facility] Comment on above: Performed By: #### C BC ####[facility] Hotyhvozoh5904 [place] [id number]. Garima Pulliam Platelet mean volume (Bld) [Entitic vol] 8.5 fL Critically low 9.5-13.5 [facility] Comment on above: Performed By: #### C BC ####[facility] Gsycuikfok6642 [place] [id number]. Garima Pulliam PLT 219 103/ul Normal 150-450 [facility] Comment on above: Performed By: #### C BC ####[facility] Cwkzbjjwja5685 [place] [id number]. Garima Pulliam RBC 4.56 106/ul Critically low 4.70-6.10 [facility] Comment on above: Performed By: #### C BC ####[facility] Uayfmxfzik3595 [place] [id number]. Garima Pulliam WBC 7.6 103/ul Normal 4.0-11.0 [facility] Comment on above: Performed By: #### C BC ####[facility] Fqjhuqxbfy2985 [place] [id number]. Garima Pulliam LACTATE/LACTIC ACIDon 2022 Lactate [Moles/Vol] 1.2 mmol/L Normal 0.4-2.0 [facility] Comment on above: Performed By: #### L ACT ####[facility] Jdriyjqmos5577 [place] [id number]. Garima Pulliam MAGNESIUMon 03-30-2023 Magnesium [Mass/Vol] 1.8 mg/dL Normal 1.8-2.4 [facility] Comment on above: Performed By: #### M G ####[facility] Rubviltgmj9379 [place] [address]Dr. Garima Pulliam PROF 14(COMP METB)on 023 Albumin [Mass/Vol] 3.5 g/dL Normal 3.4-5.0 [facility] Comment on above: Performed By: #### C DAVID, CMAANA ROSA ####[facility] Lsocfmntsg2610 [place] [address]Dr. Garima Pulliam Albumin/Globulin [Mass ratio] 1.2 {ratio} Normal [facility] Comment on above: Performed By: #### C DAVID, CMAANA ROSA ####[facility] Iqvycywdqv3480 [place] [address]Dr. Garima Pulliam ALP [Catalytic activity/Vol] 85 U/L Normal 46-116 [facility] Comment on above: Performed By: #### C DAVID, CMAANA ROSA ####[facility] Owwsdqponk[address] [place], [place] [address]Dr. Garima Pulliam ALT [Catalytic activity/Vol] 29 U/L Normal 16-63 [facility] Comment on above: Performed By: #### C DAVID, CMAANA ROSA ####[facility] Cdqqpgzuks8496 [place] [address]Dr. Garima Pulliam Anion gap [Moles/Vol] 8.0 mmol/L Normal [facility] Comment on above: Performed By: #### C DAVID, CMAAAN ROSA ####[facility] Zrroildwuy5624 [place] [address]Dr. Garima Pulliam AST [Catalytic activity/Vol] 18 U/L Normal 15-37 [facility] Comment on above: Performed By: #### C DAVID, CMADM ####[facility] Ohypaagtfl6010 [place] [address]Dr. Garima Pulliam Bilirubin [Mass/Vol] 0.4 mg/dL Normal 0.2-1.0 [facility] Comment on above: Performed By: #### C DAVID, CMADM ####[facility] Lmausrvxqc8462 [place] [address]Dr. Garima Pulliam Calcium [Mass/Vol] 8.8 mg/dL Normal 8.5-10.1 [facility] Comment on above: Performed By: #### C DAVID, NANCY ####[facility] Vissevjxhg5185 [place] [address]Dr. Chapisrenu Pulliam Chloride [Moles/Vol] 108 mmol/L Critically high 98-107 [facility] Comment on above: Performed By: #### C DAVID, NANCY ####[facility] Xmrsylhvpy3327 [place] [address]Dr. Garima Pulliam CO2 [Moles/Vol] 29.6 mmol/L Normal 21.0-32.0 [facility] Comment on above: Performed By: #### C NANCY HERNANDEZ ####[facility] Slebpfpaxa[address] [place], [place] [address]Dr. Garima Pulliam Creatinine [Mass/Vol] 0.77 mg/dL Normal 0.70-1.30 [facility] Comment on above: Performed By: #### C NANCY HERNANDEZ ####[facility] Rdbdrtnrqg[address] [place], [place] [address]Dr. Garima Heraclio EGFR-AF MOSOTHO >60 Normal >=60 [facility] Comment on above: Performed By: #### C NANCY HERNANDEZ ####[facility] Rufswjgpoh[address] [place], [place] [address]Dr. Garima Heraclio EGFR-NON AF MOSOTHO >60 Normal >=60 [facility] Comment on above: Performed By: #### C NANCY HERNANDEZ ####[facility] Htptrqjaqt9810 [place] [address]Dr. Garima Pulliam Globulin (S) [Mass/Vol] 2.8 g/dL Normal [facility] Comment on above: Performed By: #### C NANCY HERNANDEZ ####[facility] Hlygfmibut6492 [place] [address]Dr. Garima Pulliam Glucose [Mass/Vol] 207 mg/dL Critically high 74-106 [facility] Comment on above: Performed By: #### C NANCY HERNANDEZ ####[facility] Zbqwcfjqau[address] [place], [place] [address]Dr. Garima Pulliam Potassium [Moles/Vol] 4.6 mmol/L Normal 3.5-5.1 [facility] Comment on above: Performed By: #### C DAVID, NANCY ####[facility] Xaqbmomeui6052 [place] [address]Dr. Garima Pulliam Protein [Mass/Vol] 6.3 g/dL Critically low 6.4-8.2 [facility] Comment on above: Performed By: #### C DAVID, NANCY ####[facility] Tvllqquunj1830 [place] [address]Dr. Garima Pulliam Sodium [Moles/Vol] 141 mmol/L Normal 136-145 [facility] Comment on above: Performed By: #### C DAVID, NANCY ####[facility] Ciqkjeqhjz2886 [place] [address]Dr. Garima Pulliam Urea nitrogen [Mass/Vol] 9.0 mg/dL Normal 7.0-18.0 [facility] Comment on above: Performed By: #### C DAVID, NANCY ####[facility] Twufdtfmnk8527 [place] [address]Dr. Garima Pulliam Urea nitrogen/Creatinine [Mass ratio] 11.7 mg/mg Normal [facility] Comment on above: Performed By: #### C DAVID, NANCY ####[facility] Yzfymvkotq9860 [place] [address]Dr. Garmia Pulliam XR CHEST 1 Von 03-30-2023 XR CHEST [address] [facility] BNPon 03-27-2023 Natriuretic peptide B (Bld) [Mass/Vol] 251.0 pg/mL Normal <=900.0 [facility] Comment on above: Performed By: #### C MP, BNP, LIPID ####[facility] Efhiricycn1760 [place] [address]Dr. Garima Pulliam GLYCOHEMOGLOBIN A1Con 2022 ADA RECOMMENDATION SEE BELOW Normal [facility] Comment on above: Result Comment: ADA RECOMMENDED LIMIT 4.0 - 6.0 ADA THERAPEUTIC TARGET < 7.0 ACTION SUGGESTED > 7.0 Performed By: #### A 1C ####[facility] Ubewyluchg0224 [place] [address]Dr. Garima Pulliam Glucose [Mass/Vol] 180 mg/dL Normal [facility] Comment on above: Performed By: #### A 1C ####[facility] Hpihxndjme[address] [place], [place] [address]Dr. Chapisrenu Pulliam HbA1c (Bld) [Mass fraction] 7.9 % Critically high 4.5-6.2 [facility] Comment on above: Performed By: #### A 1C ####[facility] Abehddlfkf[address] [place], [place] [address]Dr. Garima Pulliam HEMOGRAM AND PLATELon 2022 Hematocrit (Bld) [Volume fraction] 45.7 % Normal 42.0-54.0 [facility] Comment on above: Performed By: #### H H ####[facility] Arqdovdkbs04[address] [place], [place] [address]Dr. Garima Pulliam Hemoglobin (Bld) [Mass/Vol] 15.1 g/dL Normal 14.0-18.0 [facility] Comment on above: Performed By: #### H H ####[facility] Kcccvshlct202[address] [place], [place] [address]Dr. Garima Pulliam MCH (RBC) [Entitic mass] 30.0 pg Normal 25.9-34.0 [facility] Comment on above: Performed By: #### H H ####[facility] Rpjjxlqxzv[address] [place], [place] [address]Dr. Garima Pulliam MCHC (RBC) [Mass/Vol] 33.0 g/dL Normal 29.9-35.2 [facility] Comment on above: Performed By: #### H H ####[facility] Jasvbkipkk[address] [place], [place] [address]Dr. Garima Pulliam MCV (RBC) [Entitic vol] 90.7 fL Normal 80.0-94.0 [facility] Comment on above: Performed By: #### H H ####[facility] Mfzicehcvx[address] [place], [place] [address]Dr. Garima Pulliam PLT 222 103/ul Normal 150-450 [facility] Comment on above: Performed By: #### H H ####[facility] Rzptcdjwlt1231 [place] [id number]. Garima Pulliam RBC 5.04 106/ul Normal 4.70-6.10 [facility] Comment on above: Performed By: #### H H ####[facility] Etceqvclaq3761 [place] [id number]. Garima Pulliam WBC 8.7 103/ul Normal 4.0-11.0 [facility] Comment on above: Performed By: #### H H ####[facility] Jbzujagegx3880 [place] [id number]. Garima Pulliam LIPID PROFILEon 03-27-2023 CHOL-HDL RATIO NORM SEE BELOW Normal [facility] Comment on above: Result Comment: 3.3 - 4.4 LOW RISK 4.4 - 7.1 AVERAGE RISK 7.1 - 11.0 MODERATE RISK >11.0 HIGH RISK Performed By: #### C MP, BNP, LIPID ####[facility] Apondfovbk2383 [place] [address]Dr. Garima Pulliam Cholesterol [Mass/Vol] 113 mg/dL Normal <=200 [facility] Comment on above: Performed By: #### C MP, BNP, LIPID ####[facility] Ezribzidnt4368 [place] [address]Dr. Garima Pulliam Cholesterol in HDL [Mass/Vol] 51 mg/dL Normal 40-60 [facility] Comment on above: Performed By: #### C MP, BNP, LIPID ####[facility] Odararlpun1043 [place] [address]Dr. Garima Pulliam Cholesterol in LDL [Mass/Vol] 49.8 mg/dL Normal [facility] Comment on above: Performed By: #### C MP, BNP, LIPID ####[facility] Sdazkwklfn6175 [place] [address]Dr. Garima Pulliam Cholesterol.total/Cho lesterol in HDL [Mass ratio] 2.2 {ratio} Normal [facility] Comment on above: Performed By: #### C MP, BNP, LIPID ####[facility] Ppdzprrthg7056 [place] [address]Dr. Garima Pulliam HDL NORMAL > or = 60 mg/dl - LOW CARDIOVASCULAR RISK <40 mg/dl - HIGH CARDIOVASCULAR RISK Normal [facility] Comment on above: Performed By: #### C MP, BNP, LIPID ####[facility] Xefaolqexf7523 [place] [address]Dr. Garima Pulliam LDL CALC NORMAL SEE BELOW Normal [facility] Comment on above: Result Comment: <100 mg/dl OPTIMAL 100 - 129 mg/dl NEAR OR ABOVE OPTIMAL 130 - 159 mg/dl BORDERLINE HIGH 160 - 189 mg/dl HIGH >190 mg/dl VERY HIGH Performed By: #### C MP, BNP, LIPID ####[facility] Bcrfurdozg7184 [place] [address]Dr. Garima Pulliam Triglyceride [Mass/Vol] 61 mg/dL Normal <=150 [facility] Comment on above: Performed By: #### C MP, BNP, LIPID ####[facility] [address]if[address] [place] [address]Dr. Garima Pulliam VLDL CALC 12.2 mg/dL Normal [facility] Comment on above: Performed By: #### C MP, BNP, LIPID ####[facility] Kglesnjlqt0[address] [place] [address]Dr. Garima Pulliam PROF 14(COMP METB)on 023 Albumin [Mass/Vol] 3.5 g/dL Normal 3.4-5.0 [facility] Comment on above: Performed By: #### C MP, BNP, LIPID ####[facility] Pnqcpooacw34[address] [place] [address]Dr. Garima Pulliam Albumin/Globulin [Mass ratio] 1.2 {ratio} Normal [facility] Comment on above: Performed By: #### C MP, BNP, LIPID ####[facility] Yvlcftzqje8423 [place] [address]Dr. Garima Pulliam ALP [Catalytic activity/Vol] 82 U/L Normal 46-116 [facility] Comment on above: Performed By: #### C MP, BNP, LIPID ####[facility] Vvfgiwhwfp8201 [place] [address]Dr. Garima Pulliam ALT [Catalytic activity/Vol] 33 U/L Normal 16-63 [facility] Comment on above: Performed By: #### C MP, BNP, LIPID ####[facility] Bwbujniqtx23[address] [place] [address]Dr. Garima Pulliam Anion gap [Moles/Vol] 9.9 mmol/L Normal [facility] Comment on above: Performed By: #### C MP, BNP, LIPID ####[facility] Shgoraxdgq83[address] [place] [address]Dr. Garima Pulliam AST [Catalytic activity/Vol] 24 U/L Normal 15-37 [facility] Comment on above: Performed By: #### C MP, BNP, LIPID ####[facility] Cwnjvpcovc55[address] [place] [address]Dr. Garima uPlliam Bilirubin [Mass/Vol] 0.6 mg/dL Normal 0.2-1.0 [facility] Comment on above: Performed By: #### C MP, BNP, LIPID ####[facility] Wnxrgaostz7[address] [place] [address]Dr. Garima Pulliam Calcium [Mass/Vol] 9.2 mg/dL Normal 8.5-10.1 [facility] Comment on above: Performed By: #### C MP, BNP, LIPID ####[facility] Usetavpkdn230[address] [place] [address]Dr. Garima Pulliam Chloride [Moles/Vol] 106 mmol/L Normal 98-107 [facility] Comment on above: Performed By: #### C MP, BNP, LIPID ####[facility] Kksptmkulc57[address] [place] [address]Dr. Garima Pulliam CO2 [Moles/Vol] 32.3 mmol/L Critically high 21.0-32.0 [facility] Comment on above: Performed By: #### C MP, BNP, LIPID ####[facility] Sxqvpkowgn7766 [place] [address]Dr. Garima Pulliam Creatinine [Mass/Vol] 0.70 mg/dL Normal 0.70-1.30 [facility] Comment on above: Performed By: #### C MP, BNP, LIPID ####[facility] Vweoekriuu9052 [place] [id number]. Garima Pulliam EGFR-AF MOSOTHO >60 Normal >=60 [facility] Comment on above: Performed By: #### C MP, BNP, LIPID ####[facility] Temcjdtwvc0000 [place] [id number]. Garima Pulliam EGFR-NON AF MOSOTHO >60 Normal >=60 [facility] Comment on above: Performed By: #### C MP, BNP, LIPID ####[facility] Lqjebykkuz5002 [place] [address]Dr. Garima Pulliam Globulin (S) [Mass/Vol] 2.9 g/dL Normal [facility] Comment on above: Performed By: #### C MP, BNP, LIPID ####[facility] Jfxziqnmfu2767 [place] [address]Dr. Garima Pulliam Glucose [Mass/Vol] 111 mg/dL Critically high 74-106 [facility] Comment on above: Performed By: #### C MP, BNP, LIPID ####[facility] Sfnnzkgmez9789 [place] [address]Dr. Garima Pulliam Potassium [Moles/Vol] 4.2 mmol/L Normal 3.5-5.1 [facility] Comment on above: Performed By: #### C MP, BNP, LIPID ####[facility] Cogzdkjxvg8322 [place] [address]Dr. Garima Pulliam Protein [Mass/Vol] 6.4 g/dL Normal 6.4-8.2 [facility] Comment on above: Performed By: #### C MP, BNP, LIPID ####[facility] Cokhvcwraa57[address] [place] [address]Dr. Garima Pulliam Sodium [Moles/Vol] 144 mmol/L Normal 136-145 [facility] Comment on above: Performed By: #### C MP, BNP, LIPID ####[facility] Ciwjtvhgav2880 [place] [address]Dr. Garima Pulliam Urea nitrogen [Mass/Vol] 7.0 mg/dL Normal 7.0-18.0 [facility] Comment on above: Performed By: #### C MP, BNP, LIPID ####[facility] Xoyeuvtmzn[address] [place], [place] [address]Dr. Garima Pulliam Urea nitrogen/Creatinine [Mass ratio] 10.0 mg/mg Normal [facility] Comment on above: Performed By: #### C MP, BNP, LIPID ####[facility] Fkkcvhknhk49[address] [place], [place] [address]Dr. Garima Pulliam BNPon 03-22-2023 Natriuretic peptide B (Bld) [Mass/Vol] 103.0 pg/mL Normal <=900.0 [facility] Comment on above: Performed By: #### B CORRECTIONS CASEWORKER, BMP ####[facility] Xikdppbadm[address] [place], [place] [address]Dr. Garima Pulliam CBC AUTO DIFFon 03-22-2023 BASO # 0.0 103/ul Normal 0.0-0.1 [facility] Comment on above: Performed By: #### C BC ####[facility] Ahjprwjdzv[address] [place], [place] [address]Dr. Garima Heraclio Basophils/100 WBC (Bld) 0.3 % Normal 0.2-2.0 [facility] Comment on above: Performed By: #### C BC ####[facility] Yvtuexlbgn627[address] [place], [place] [address]Dr. Garima Pulliam EO # 0.2 103/ul Normal 0.0-0.7 [facility] Comment on above: Performed By: #### C BC ####[facility] Wqqdawozlx[address] [place], [place] [address]Dr. Garima Pulliam Eosinophils/100 WBC (Bld) 2.2 % Normal 0.9-7.0 [facility] Comment on above: Performed By: #### C BC ####[facility] Xyejdiqxpv025[address] [place], [place] [address]Dr. Garima Pulliam Erythrocyte distribution width (RBC) [Ratio] 13.2 % Normal 11.0-15.0 [facility] Comment on above: Performed By: #### C BC ####[facility] Yahrshndvk9059 [place] [id number]. Garima Pulliam Hematocrit (Bld) [Volume fraction] 43.4 % Normal 42.0-54.0 [facility] Comment on above: Performed By: #### C BC ####[facility] Acvbvddfhu7308 [place] [address]Dr. Garima Heraclio Hemoglobin (Bld) [Mass/Vol] 14.3 g/dL Normal 14.0-18.0 [facility] Comment on above: Performed By: #### C BC ####[facility] Gcimdddxqs5905 [place] [address]Dr. Garima Pulliam IG # 0.02 10e3/ul Normal 0.00-0.03 [facility] Comment on above: Performed By: #### C BC ####[facility] Peqbkvgthd5078 [place] [address]Dr. Garima Pulliam IG % 0.3 % Normal 0.0-0.5 [facility] Comment on above: Performed By: #### C BC ####[facility] Pxxpivczmd7090 [place] [address]Dr. Chapisrenu Pulliam LYMPH # 2.0 103/ul Normal 1.2-3.8 [facility] Comment on above: Performed By: #### C BC ####[facility] Ntuauzepfg4966 [place] [address]Dr. Chapisrenu Pulliam Lymphocytes/100 WBC (Bld) 24.8 % Normal 20.5-60.0 [facility] Comment on above: Performed By: #### C BC ####[facility] Kxmzfqhjrt7834 [place] [address]Dr. Chapisrenu Pulliam MANUAL DIFF REQ NO Normal [facility] Comment on above: Performed By: #### C BC ####[facility] Diueutbvpr3773 [place] [address]Dr. Garima Heraclio MCH (RBC) [Entitic mass] 30.0 pg Normal 25.9-34.0 [facility] Comment on above: Performed By: #### C BC ####[facility] Vzmldmlaqa[address] [place], [place] [address]Dr. Garima Pulliam MCHC (RBC) [Mass/Vol] 32.9 g/dL Normal 29.9-35.2 [facility] Comment on above: Performed By: #### C BC ####[facility] Iytebdacis4544 [place] [id number]. Garima Pulliam MCV (RBC) [Entitic vol] 91.0 fL Normal 80.0-94.0 [facility] Comment on above: Performed By: #### C BC ####[facility] Kkyqkgbzig1425 [place] [id number]. Garima Heraclio MONO # 0.8 103/ul Normal 0.3-0.8 [facility] Comment on above: Performed By: #### C BC ####[facility] Wikptpgrfz2596 [place] [address]Dr. Chapisrenu Pulliam Monocytes/100 WBC (Bld) 9.7 % Normal 1.7-12.0 [facility] Comment on above: Performed By: #### C BC ####[facility] Jasyhusbpb6046 [place] [address]Dr. Garima Pulliam NEUT # 4.9 103/ul Normal 1.4-6.5 [facility] Comment on above: Performed By: #### C BC ####[facility] Peufmsqgju3723 [place] [id number]. Garima Heraclio Neutrophils/100 WBC (Bld) 62.7 % Normal 43.0-75.0 [facility] Comment on above: Performed By: #### C BC ####[facility] Rkxpatxolt5698 [place] [id number]. Garima Heraclio Platelet mean volume (Bld) [Entitic vol] 8.8 fL Critically low 9.5-13.5 [facility] Comment on above: Performed By: #### C BC ####[facility] Hzvriwzlce9652 [place] [id number]. Garima Heraclio PLT 198 103/ul Normal 150-450 [facility] Comment on above: Performed By: #### C BC ####[facility] Osewdiwjne2435 [place] [id number]. Garima Heraclio RBC 4.77 106/ul Normal 4.70-6.10 [facility] Comment on above: Performed By: #### C BC ####[facility] Lcbuwgxjgd3959 [place] [id number]. Garima Heraclio WBC 7.9 103/ul Normal 4.0-11.0 [facility] Comment on above: Performed By: #### C BC ####[facility] Ozfeyfhgye7011 [place] [id number]. Garima Heraclio D-DIMERon 03-22-2023 D-DIMER 0.85 mg/L FEU Critically high <=0.59 [facility] Comment on above: Performed By: #### D DIM ####[facility] Zymerwzuaf1193 [place] [address]Dr. Garima Pulliam D-DIMER COMMENTS SEE BELOW Normal [facility] Comment on above: Result Comment: Incr [...] hospitalization. Performed By: #### D DIM ####[facility] Oxmxwthhgv14[address] [place], [place] [address]Dr. Garima Pulliam PROF CHEM 8 (BAS METB)on Anion gap [Moles/Vol] 6.9 mmol/L Normal [facility] Comment on above: Performed By: #### B CORRECTIONS CASEWORKER, BMP ####[facility] Zkvoialmdw1127 [place] [address]Dr. Garima Pulliam Calcium [Mass/Vol] 8.9 mg/dL Normal 8.5-10.1 [facility] Comment on above: Performed By: #### B CORRECTIONS CASEWORKER, BMP ####[facility] Nulbhwqbag4016 [place] [address]Dr. Garima Pulliam Chloride [Moles/Vol] 101 mmol/L Normal 98-107 [facility] Comment on above: Performed By: #### B CORRECTIONS CASEWORKER, BMP ####[facility] Xxdzbdjepm[address] [place], [place] [address]Dr. Chapisrenu Heraclio CO2 [Moles/Vol] 30.7 mmol/L Normal 21.0-32.0 [facility] Comment on above: Performed By: #### B CORRECTIONS CASEWORKER, BMP ####[facility] Nuuzgrtkys5[address] [place], [place] [address]Dr. Garima Pulliam Creatinine [Mass/Vol] 0.82 mg/dL Normal 0.70-1.30 [facility] Comment on above: Performed By: #### B CORRECTIONS CASEWORKER, BMP ####[facility] Hoefimiibe347[address] [place], [place] [address]Dr. Garima Pulliam EGFR-AF MOSOTHO >60 Normal >=60 [facility] Comment on above: Performed By: #### B CORRECTIONS CASEWORKER, BMP ####[facility] Wlgqjnuaul513[address] [place], [place] [address]Dr. Chapisrenu Heraclio EGFR-NON AF MOSOTHO >60 Normal >=60 [facility] Comment on above: Performed By: #### B CORRECTIONS CASEWORKER, BMP ####[facility] Wmswdjsiuu395[address] [place], [place] [address]Dr. Garima Pulliam Glucose [Mass/Vol] 339 mg/dL Critically high 74-106 [facility] Comment on above: Performed By: #### B CORRECTIONS CASEWORKER, BMP ####[facility] Skgjtzcofh193[address] [place], [place] [address]Dr. Garima Pulliam Potassium [Moles/Vol] 3.6 mmol/L Normal 3.5-5.1 [facility] Comment on above: Performed By: #### B CORRECTIONS CASEWORKER, BMP ####[facility] Mgrurbvpat75[address] [place], [place] [address]Dr. Garima Pulliam Sodium [Moles/Vol] 135 mmol/L Critically low 136-145 [facility] Comment on above: Performed By: #### B CORRECTIONS CASEWORKER, BMP ####[facility] Vnfisoddsb330[address] [place], [place] [address]Dr. Garima Pulliam Urea nitrogen [Mass/Vol] 11.0 mg/dL Normal 7.0-18.0 [facility] Comment on above: Performed By: #### B CORRECTIONS CASEWORKER, BMP ####[facility] Ikxjpqftvs13[address] [place], [place] [address]Dr. Garima Pulliam Urea nitrogen/Creatinine [Mass ratio] 13.4 mg/mg Normal [facility] Comment on above: Performed By: #### B CORRECTIONS CASEWORKER, BMP ####[facility] Ikdyquwpzm640[address] [place], [place] [address]Dr. Garima Pulliam US VERONICA DOP LEG BILon 023 US VERONICA DOP LEG BENOIT Normal [facility] BNPon 03-18-2023 Natriuretic peptide B (Bld) [Mass/Vol] 226.0 pg/mL Normal <=900.0 [facility] Comment on above: Performed By: #### B CORRECTIONS CASEWORKER, BMP ####[facility] Hyczcdovfl268[address] [place], [place] [address]Dr. Garima Pulliam CBC AUTO DIFFon 03-18-2023 BASO # 0.0 103/ul Normal 0.0-0.1 [facility] Comment on above: Performed By: #### C BC ####[facility] Dwfjwuwmgx[address] [place], [place] [address]Dr. Garima Heraclio Basophils/100 WBC (Bld) 0.2 % Normal 0.2-2.0 [facility] Comment on above: Performed By: #### C BC ####[facility] Yqngozflce822[address] [place], [place] [address]Dr. Garima Pulliam EO # 0.3 103/ul Normal 0.0-0.7 [facility] Comment on above: Performed By: #### C BC ####[facility] Uwjalfgrxg832[address] [place], [place] [address]Dr. Garima Heraclio Eosinophils/100 WBC (Bld) 2.5 % Normal 0.9-7.0 [facility] Comment on above: Performed By: #### C BC ####[facility] Fcnpxfulxy[address] [place], [place] [address]Dr. Garima Heraclio Erythrocyte distribution width (RBC) [Ratio] 13.2 % Normal 11.0-15.0 [facility] Comment on above: Performed By: #### C BC ####[facility] Hpdmdzygkw2972 [place] [address]DrAdalberto Pulliam Hematocrit (Bld) [Volume fraction] 45.8 % Normal 42.0-54.0 [facility] Comment on above: Performed By: #### C BC ####[facility] Fnswufkhoy1746 [place] [address]DrAdalberto Pulliam Hemoglobin (Bld) [Mass/Vol] 15.3 g/dL Normal 14.0-18.0 [facility] Comment on above: Performed By: #### C BC ####[facility] Qqjufstpne[address] [place], [place] [address]DrAdalberto Pulliam IG # 0.02 10e3/ul Normal 0.00-0.03 [facility] Comment on above: Performed By: #### C BC ####[facility] Hpalsyfpsf[address] [place], [place] [address]DrAdalberto Pulliam IG % 0.2 % Normal 0.0-0.5 [facility] Comment on above: Performed By: #### C BC ####[facility] Cmkqioyzoc4[address] [place], [place] [address]DrAdalberto Pulliam LYMPH # 1.8 103/ul Normal 1.2-3.8 [facility] Comment on above: Performed By: #### C BC ####[facility] Zhxepacixi98[address] [place], [place] [address]DrAdalberto Pulliam Lymphocytes/100 WBC (Bld) 18.3 % Critically low 20.5-60.0 [facility] Comment on above: Performed By: #### C BC ####[facility] Vxxvtqjsxy39[address] [place], [place] [address]DrAdalberto Pulliam MANUAL DIFF REQ NO Normal [facility] Comment on above: Performed By: #### C BC ####[facility] Cjcvxynerh6291 [place] [address]DrAdalberto Pulliam MCH (RBC) [Entitic mass] 30.5 pg Normal 25.9-34.0 [facility] Comment on above: Performed By: #### C BC ####[facility] Exwxjyyhcm7699 [place] [address]DrAdalberto Pulliam MCHC (RBC) [Mass/Vol] 33.4 g/dL Normal 29.9-35.2 [facility] Comment on above: Performed By: #### C BC ####[facility] Yryldqcuvt3764 [place] [address]DrAdalberto Pulliam MCV (RBC) [Entitic vol] 91.2 fL Normal 80.0-94.0 [facility] Comment on above: Performed By: #### C BC ####[facility] Ydoigfbhyy13[address] [place], [place] [address]DrAdalberto Pulliam MONO # 0.8 103/ul Normal 0.3-0.8 [facility] Comment on above: Performed By: #### C BC ####[facility] Jnvmeqsvol714[address] [place], [place] [address]DrAdalberto Pulliam Monocytes/100 WBC (Bld) 7.6 % Normal 1.7-12.0 [facility] Comment on above: Performed By: #### C BC ####[facility] Vcretjmnyd8[address] [place], [place] [address]DrAdalberto Pulliam NEUT # 7.0 103/ul Critically high 1.4-6.5 [facility] Comment on above: Performed By: #### C BC ####[facility] Drylzudjle47[address] [place], [place] [address]DrAdalberto Pulliam Neutrophils/100 WBC (Bld) 71.2 % Normal 43.0-75.0 [facility] Comment on above: Performed By: #### C BC ####[facility] Soltykabah[address] [place], [place] [address]DrAdalberto Pulliam Platelet mean volume (Bld) [Entitic vol] 8.9 fL Critically low 9.5-13.5 [facility] Comment on above: Performed By: #### C BC ####[facility] Rzmerrdodd211[address] [place], [place] [address]DrAdalberto Pulliam PLT 217 103/ul Normal 150-450 [facility] Comment on above: Performed By: #### C BC ####[facility] Ucepcgxhoq8764 [place] [address]Dr. Garima Heraclio RBC 5.02 106/ul Normal 4.70-6.10 [facility] Comment on above: Performed By: #### C BC ####[facility] Uyaqcjiaka[address] [place], [place] [address]Dr. Garima Pulliam WBC 9.8 103/ul Normal 4.0-11.0 [facility] Comment on above: Performed By: #### C BC ####[facility] Zmonbvupls518[address] [place], [place] [address]Dr. Garima Heraclio CRPon 03-18-2023 CRP 0.1 mg/dL Normal <=1.0 [facility] Comment on above: Performed By: #### C RP ####[facility] Gtelcmxhar449[address] [place], [place] [address]Dr. Garima Heraclio PROF CHEM 8 (BAS METB)on Anion gap [Moles/Vol] 10.4 mmol/L Normal [facility] Comment on above: Performed By: #### B CORRECTIONS CASEWORKER, BMP ####[facility] Jijuwwvhqb997[address] [place], [place] [address]Dr. Garima Heraclio Calcium [Mass/Vol] 8.8 mg/dL Normal 8.5-10.1 [facility] Comment on above: Performed By: #### B CORRECTIONS CASEWORKER, BMP ####[facility] Gqfjwzfizv7[address] [place], [place] [address]Dr. Garima Heraclio Chloride [Moles/Vol] 97 mmol/L Critically low 98-107 [facility] Comment on above: Performed By: #### B CORRECTIONS CASEWORKER, BMP ####[facility] Cfclczxzrr432[address] [place], [place] [address]Dr. Garima Pulliam CO2 [Moles/Vol] 31.2 mmol/L Normal 21.0-32.0 [facility] Comment on above: Performed By: #### B CORRECTIONS CASEWORKER, BMP ####[facility] Uqegvbmiws[address] [place], [place] [address]Dr. Garima Pullaim Creatinine [Mass/Vol] 0.91 mg/dL Normal 0.70-1.30 [facility] Comment on above: Performed By: #### B CORRECTIONS CASEWORKER, BMP ####[facility] Mbsezggdnw1133 [place] [address]Dr. Gariam Pulliam EGFR-AF MOSOTHO >60 Normal >=60 [facility] Comment on above: Performed By: #### B CORRECTIONS CASEWORKER, BMP ####[facility] Fwrrcnjmpe1422 [place] [id number]. Garima Pulliam EGFR-NON AF MOSOTHO >60 Normal >=60 [facility] Comment on above: Performed By: #### B CORRECTIONS CASEWORKER, BMP ####[facility] Nrtwtzdbji6422 [place] [address]Dr. Garima Pulliam Glucose [Mass/Vol] 315 mg/dL Critically high 74-106 T [facility] Comment on above: Performed By: #### B CORRECTIONS CASEWORKER, BMP ####[facility] Rkskuckles5024 [place] [address]Dr. Garima Pulliam Potassium [Moles/Vol] 3.6 mmol/L Normal 3.5-5.1 [facility] Comment on above: Performed By: #### B CORRECTIONS CASEWORKER, BMP ####[facility] Vupnqbgnte3698 [place] [address]Dr. Garima Pulliam Sodium [Moles/Vol] 135 mmol/L Critically low 136-145 [facility] Comment on above: Performed By: #### B CORRECTIONS CASEWORKER, BMP ####[facility] Zwgyvwjdsh4575 [place] [address]Dr. Garima Pulliam Urea nitrogen [Mass/Vol] 7.0 mg/dL Normal 7.0-18.0 [facility] Comment on above: Performed By: #### B CORRECTIONS CASEWORKER, BMP ####[facility] Gwizhaxzkk7822 [place] [address]Dr. Garima Pulliam Urea nitrogen/Creatinine [Mass ratio] 7.7 mg/mg Normal [facility] Comment on above: Performed By: #### B CORRECTIONS CASEWORKER, BMP ####[facility] Aynqktkupf3415 [place] [address]Dr. Garima Pulliam SED RATE WESTERGRENon 2022 SED RATE 8 mm/hr Normal <=20 [facility] Comment on above: Performed By: #### S EDR ####[facility] Xqboakrcvm[address] [place], [place] [address]Dr. Garima Pulliam BNPon 03-16-2023 Natriuretic peptide B (Bld) [Mass/Vol] 241.0 pg/mL Normal <=900.0 [facility] Comment on above: Performed By: #### B CORRECTIONS CASEWORKER, BMP, HSTROPN ####[facility] Knrgvuckmx384[address] [place], [place] [address]Dr. Garima Heraclio CBC AUTO DIFFon 03-16-2023 BASO # 0.0 103/ul Normal 0.0-0.1 [facility] Comment on above: Performed By: #### C BC ####[facility] Yqmhbmbuzw[address] [place], [place] [address]Dr. Chapisrenu Pulliam Basophils/100 WBC (Bld) 0.2 % Normal 0.2-2.0 [facility] Comment on above: Performed By: #### C BC ####[facility] Jogukvayjt[address] [place], [place] [address]Dr. Garima Pulliam EO # 0.2 103/ul Normal 0.0-0.7 [facility] Comment on above: Performed By: #### C BC ####[facility] Zplrpvohdn7[address] [place], [place] [address]Dr. Chapisrenu Pulliam Eosinophils/100 WBC (Bld) 2.7 % Normal 0.9-7.0 [facility] Comment on above: Performed By: #### C BC ####[facility] Cbumdlhffr137[address] [place], [place] [address]Dr. Garima Pulliam Erythrocyte distribution width (RBC) [Ratio] 13.1 % Normal 11.0-15.0 [facility] Comment on above: Performed By: #### C BC ####[facility] Kwralcoqll05[address] [place], [place] [address]Dr. Garima Pulliam Hematocrit (Bld) [Volume fraction] 41.8 % Critically low 42.0-54.0 [facility] Comment on above: Performed By: #### C BC ####[facility] Olsgvuhrep8607 [place] [address]Dr. Garima Pulliam Hemoglobin (Bld) [Mass/Vol] 14.0 g/dL Normal 14.0-18.0 [facility] Comment on above: Performed By: #### C BC ####[facility] Zajdbrbqwr2305 [place] [address]Dr. Garima Pulliam IG # 0.03 10e3/ul Normal 0.00-0.03 [facility] Comment on above: Performed By: #### C BC ####[facility] Axewujsfxh7392 [place] [address]Dr. Garima Pulliam IG % 0.3 % Normal 0.0-0.5 [facility] Comment on above: Performed By: #### C BC ####[facility] Xbrattuiwa[address] [place], [place] [address]Dr. Chapisrenu Pulliam LYMPH # 2.1 103/ul Normal 1.2-3.8 [facility] Comment on above: Performed By: #### C BC ####[facility] Mrtqmgarji[address] [place], [place] [address]Dr. Chapisrenu Pulliam Lymphocytes/100 WBC (Bld) 24.2 % Normal 20.5-60.0 [facility] Comment on above: Performed By: #### C BC ####[facility] Zkaawctzrn4[address] [place] [address]Dr. Garima Pulliam MANUAL DIFF REQ NO Normal [facility] Comment on above: Performed By: #### C BC ####[facility] Tcmkwdyhmo6576 [place] [address]Dr. Garima Pulliam MCH (RBC) [Entitic mass] 30.2 pg Normal 25.9-34.0 [facility] Comment on above: Performed By: #### C BC ####[facility] Jgjcntzrqf7540 [place] [address]Dr. Garima Pulliam MCHC (RBC) [Mass/Vol] 33.5 g/dL Normal 29.9-35.2 [facility] Comment on above: Performed By: #### C BC ####[facility] Wvuzsosvju4136 [place] [id number]. Garima Pulliam MCV (RBC) [Entitic vol] 90.1 fL Normal 80.0-94.0 [facility] Comment on above: Performed By: #### C BC ####[facility] Ctpzzfcibg6824 [place] [id number]. Garima Pulliam MONO # 0.6 103/ul Normal 0.3-0.8 [facility] Comment on above: Performed By: #### C BC ####[facility] Miwpyhssvt1715 [place] [address]Dr. Garima Heraclio Monocytes/100 WBC (Bld) 7.4 % Normal 1.7-12.0 [facility] Comment on above: Performed By: #### C BC ####[facility] Utalswstfq[address] [place], [place] [address]Dr. Garima Pulliam NEUT # 5.6 103/ul Normal 1.4-6.5 [facility] Comment on above: Performed By: #### C BC ####[facility] Ppiowigayg[address] [place], [place] [address]Dr. Garima Heraclio Neutrophils/100 WBC (Bld) 65.2 % Normal 43.0-75.0 [facility] [facility] Comment on above: Performed By: #### C BC ####[facility] Hyfndpjiqg0543 [place] [id number]. Garima Heraclio Platelet mean volume (Bld) [Entitic vol] 8.7 fL Critically low 9.5-13.5 [facility] Comment on above: Performed By: #### C BC ####[facility] W[address]uf[address] [place], [place] [id number]. Garima Heraclio PLT 195 103/ul Normal 150-450 [facility] Comment on above: Performed By: #### C BC ####[facility] Mluurcyhfq8468 [place] [id number]. Garima Pulliam RBC 4.64 106/ul Critically low 4.70-6.10 [facility] Comment on above: Performed By: #### C BC ####[facility] Vjradtmber[address] [place] [address]Dr. Garima Pulliam WBC 8.6 103/ul Normal 4.0-11.0 [facility] Comment on above: Performed By: #### C BC ####[facility] Safwvaqfxa[address] [place] [address]Dr. Garima Pulliam PROF CHEM 8 (BAS METB)on Anion gap [Moles/Vol] 6.7 mmol/L Normal [facility] Comment on above: Performed By: #### B CORRECTIONS CASEWORKER, BMP, HSTROPN ####[facility] Nennhvfwgd77[address] [place] [address]Dr. Garima Pulliam Calcium [Mass/Vol] 8.8 mg/dL Normal 8.5-10.1 [facility] Comment on above: Performed By: #### B CORRECTIONS CASEWORKER, BMP, HSTROPN ####[facility] Fzuqravxpf[address] [place], [place] [address]Dr. Garima Pulliam Chloride [Moles/Vol] 106 mmol/L Normal 98-107 [facility] Comment on above: Performed By: #### B CORRECTIONS CASEWORKER, BMP, HSTROPN ####[facility] Ecjnjglusx[address] [place], [place] [address]Dr. Garima Pulliam CO2 [Moles/Vol] 31.4 mmol/L Normal 21.0-32.0 [facility] Comment on above: Performed By: #### B CORRECTIONS CASEWORKER, BMP, HSTROPN ####[facility] Vqjdkxrtgp[address] [place], [place] [address]Dr. Garima Pulliam Creatinine [Mass/Vol] 0.75 mg/dL Normal 0.70-1.30 [facility] Comment on above: Performed By: #### B CORRECTIONS CASEWORKER, BMP, HSTROPN ####[facility] Ybwcoewuvb3037 [place] [address]Dr. Garima Pulliam EGFR-AF MOSOTHO >60 Normal >=60 [facility] Comment on above: Performed By: #### B CORRECTIONS CASEWORKER, BMP, HSTROPN ####[facility] Wkpvijjhca2[address] [place] [address]Dr. Garima Pulliam EGFR-NON AF MOSOTHO >60 Normal >=60 [facility] Comment on above: Performed By: #### B CORRECTIONS CASEWORKER, BMP, HSTROPN ####[facility] Pkdvteehss1848 [place] [address]Dr. Garima Pulliam Glucose [Mass/Vol] 161 mg/dL Critically high 74-106 [facility] Comment on above: Performed By: #### B CORRECTIONS CASEWORKER, BMP, HSTROPN ####[facility] Holdiqtemh7945 [place] [address]Dr. Garima Pulliam Potassium [Moles/Vol] 4.1 mmol/L Normal 3.5-5.1 [facility] Comment on above: Performed By: #### B CORRECTIONS CASEWORKER, BMP, HSTROPN ####[facility] Auhhyswnjb9750 [place] [address]Dr. Garima Pulliam Sodium [Moles/Vol] 140 mmol/L Normal 136-145 [facility] Comment on above: Performed By: #### B CORRECTIONS CASEWORKER, BMP, HSTROPN ####[facility] Qqatjchtvb0583 [place] [address]Dr. Garima Pulliam Urea nitrogen [Mass/Vol] 7.0 mg/dL Normal 7.0-18.0 [facility] Comment on above: Performed By: #### B CORRECTIONS CASEWORKER, BMP, HSTROPN ####[facility] Imukwmwvzr3108 [place] [address]Dr. Garima Pulliam Urea nitrogen/Creatinine [Mass ratio] 9.3 mg/mg Normal [facility] Comment on above: Performed By: #### B CORRECTIONS CASEWORKER, BMP, HSTROPN ####[facility] Xstnzszuqj3910 [place] [address]Dr. Garima Pulliam TROPONIN, HIGH SENSITIVITYon 03-16-2023 HSTROP 9.7 pg/mL Normal 4.0-76.1 [facility] Comment on above: Result Comment: CUT- OFF POINTS HAVE BEEN ESTABLISHED BASED ON THE FOURTH UNIVERSAL DEFINITIONS OF MYOCARDIALINFARCTION. THE UPPER REFERENCE LIMIT (URL) OF TROPONIN, DEFINED THE 99TH PERCENTILE OFcTnI DISTRIBUTION IN A REFERENCE POPULATION, HAS BEEN CONFIRMED THE DECISION THRESHOLDFOR CT DIAGNOSIS. Performed By: #### B CORRECTIONS CASEWORKER, BMP, HSTROPN ####[facility] Gmbjwemuko3094 [place] [address]Dr. Garima Pulliam XR CHEST 1 Von 03-16-2023 XR CHEST 1 V Normal [facility] BNPon 03-06-2023 Natriuretic peptide B (Bld) [Mass/Vol] 111.0 pg/mL Normal <=900.0 [facility] Comment on above: Performed By: #### C MP, BNP, CK ####[facility] Xkvsnrotwh4600 [place] [address]Dr. Chapisrenu Pulliam CBC AUTO DIFFon 03-06-2023 BASO # 0.0 103/ul Normal 0.0-0.1 [facility] Comment on above: Performed By: #### C BC ####[facility] Dmwjmpkunk65[address] [place], [place] [address]Dr. Garima Pulliam Basophils/100 WBC (Bld) 0.2 % Normal 0.2-2.0 [facility] Comment on above: Performed By: #### C BC ####[facility] Axzqnvhwdh[address] [place], [place] [address]Dr. Garima Pulliam EO # 0.3 103/ul Normal 0.0-0.7 [facility] Comment on above: Performed By: #### C BC ####[facility] Lshgzdiorv463[address] [place], [place] [address]Dr. Garima Pulliam Eosinophils/100 WBC (Bld) 3.5 % Normal 0.9-7.0 [facility] Comment on above: Performed By: #### C BC ####[facility] Udnkuckkmy26[address] [place], [place] [address]Dr. Garima Pulliam Erythrocyte distribution width (RBC) [Ratio] 13.3 % Normal 11.0-15.0 [facility] Comment on above: Performed By: #### C BC ####[facility] Vdkqjydohx487[address] [place], [place] [address]Dr. Garima Pulliam Hematocrit (Bld) [Volume fraction] 43.7 % Normal 42.0-54.0 [facility] Comment on above: Performed By: #### C BC ####[facility] Xliwbgyudo1997 [place] [address]Dr. Garima Pulliam Hemoglobin (Bld) [Mass/Vol] 14.7 g/dL Normal 14.0-18.0 [facility] Comment on above: Performed By: #### C BC ####[facility] Iyaogrxurq0136 [place] [address]Dr. Chapisrenu Heraclio IG # 0.03 10e3/ul Normal 0.00-0.03 [facility] Comment on above: Performed By: #### C BC ####[facility] Opeemlzowd[address] [place], [place] [address]Dr. Garima Pulliam IG % 0.4 % Normal 0.0-0.5 [facility] Comment on above: Performed By: #### C BC ####[facility] Jobridtfom7[address] [place], [place] [address]Dr. Garima Pulliam LYMPH # 2.0 103/ul Normal 1.2-3.8 [facility] Comment on above: Performed By: #### C BC ####[facility] Ssfprssjig[address] [place], [place] [address]DrAdalberto Pulliam Lymphocytes/100 WBC (Bld) 23.7 % Normal 20.5-60.0 [facility] Comment on above: Performed By: #### C BC ####[facility] Rexprtfyxp8358 [place] [address]Dr. Garima Pulliam MANUAL DIFF REQ NO Normal [facility] Comment on above: Performed By: #### C BC ####[facility] Rrkmrtmjkr2154 [place] [id number] Pulliam MCH (RBC) [Entitic mass] 30.1 pg Normal 25.9-34.0 [facility] Comment on above: Performed By: #### C BC ####[facility] Vrlyciteea0685 [place] [id number]. Garima Pulliam MCHC (RBC) [Mass/Vol] 33.6 g/dL Normal 29.9-35.2 [facility] Comment on above: Performed By: #### C BC ####[facility] Noqalonnra7723 [place] [address]Dr. Garima Heraclio MCV (RBC) [Entitic vol] 89.4 fL Normal 80.0-94.0 [facility] Comment on above: Performed By: #### C BC ####[facility] Bbsxgohkwt2348 [place] [address]Dr. Garima Pulliam MONO # 0.8 103/ul Normal 0.3-0.8 [facility] Comment on above: Performed By: #### C BC ####[facility] Sxnwzrrass7495 [place] [address]Dr. Garima Pulliam Monocytes/100 WBC (Bld) 9.0 % Normal 1.7-12.0 [facility] Comment on above: Performed By: #### C BC ####[facility] Mdrysnenfi326[address] [place], [place] [address]Dr. Garima Pulliam NEUT # 5.4 103/ul Normal 1.4-6.5 [facility] Comment on above: Performed By: #### C BC ####[facility] Avteuiajro[address] [place], [place] [address]Dr. Garima Pulliam Neutrophils/100 WBC (Bld) 63.2 % Normal 43.0-75.0 [facility] Comment on above: Performed By: #### C BC ####[facility] Vkctzijuvv[address] [place], [place] [address]Dr. Garima Pulliam Platelet mean volume (Bld) [Entitic vol] 9.0 fL Critically low 9.5-13.5 [facility] Comment on above: Performed By: #### C BC ####[facility] Jigafysaqp12[address] [place], [place] [address]Dr. Garima Pulliam PLT 218 103/ul Normal 150-450 [facility] Comment on above: Performed By: #### C BC ####[facility] Pccozdcknz4365 [place] [id number]. Garima Pulliam RBC 4.89 106/ul Normal 4.70-6.10 [facility] Comment on above: Performed By: #### C BC ####[facility] Gdygjfofcp0413 [place] [address]Dr. Garima Pulliam WBC 8.5 103/ul Normal 4.0-11.0 [facility] Comment on above: Performed By: #### C BC ####[facility] Utdygcdkfg2737 [place] [address]Dr. Garima Pulliam CPKon 03-06-2023 CK [Catalytic activity/Vol] 191 U/L Normal 39-308 [facility] Comment on above: Performed By: #### C MP, BNP, CK ####[facility] Lhvnnoresh2068 [place] [address]Dr. Garima Pulliam PROF 14(COMP METB)on 023 Albumin [Mass/Vol] 3.6 g/dL Normal 3.4-5.0 [facility] Comment on above: Performed By: #### C MP, BNP, CK ####[facility] Vflyvyulvi0280 [place] [address]Dr. Garima Pulliam Albumin/Globulin [Mass ratio] 1.2 {ratio} Normal [facility] Comment on above: Performed By: #### C MP, BNP, CK ####[facility] Vgszybdhpk8118 [place] [address]Dr. Garima Pulliam ALP [Catalytic activity/Vol] 91 U/L Normal 46-116 [facility] Comment on above: Performed By: #### C MP, BNP, CK ####[facility] Fyvvyddgbj8160 [place] [address]Dr. Garima Pulliam ALT [Catalytic activity/Vol] 33 U/L Normal 16-63 [facility] Comment on above: Performed By: #### C MP, BNP, CK ####[facility] Guhqgvegoy9492 [place] [address]Dr. Garima Pulliam Anion gap [Moles/Vol] 10.3 mmol/L Normal [facility] Comment on above: Performed By: #### C MP, BNP, CK ####[facility] Wnvedyjxkm6900 [place] [address]Dr. Garima Pulliam AST [Catalytic activity/Vol] 17 U/L Normal 15-37 [facility] Comment on above: Performed By: #### C MP, BNP, CK ####[facility] Lsdsgyfdiz3850 [place] [address]Dr. Garima Pulliam Bilirubin [Mass/Vol] 0.4 mg/dL Normal 0.2-1.0 [facility] Comment on above: Performed By: #### C MP, BNP, CK ####[facility] Uzrizzysbb1736 [place] [address]Dr. Garima Pulliam Calcium [Mass/Vol] 9.1 mg/dL Normal 8.5-10.1 [facility] Comment on above: Performed By: #### C MP, BNP, CK ####[facility] Llmostjvao2242 [place] [address]Dr. Garima Pulliam Chloride [Moles/Vol] 102 mmol/L Normal 98-107 [facility] Comment on above: Performed By: #### C MP, BNP, CK ####[facility] Fkvizztmub7974 [place] [address]Dr. Garima Pulliam CO2 [Moles/Vol] 29.7 mmol/L Normal 21.0-32.0 [facility] Comment on above: Performed By: #### C MP, BNP, CK ####[facility] Pllslzpoah9858 [place] [address]Dr. Garima Pulliam Creatinine [Mass/Vol] 0.79 mg/dL Normal 0.70-1.30 [facility] Comment on above: Performed By: #### C MP, BNP, CK ####[facility] Blkfdujzjd1008 [place] [address]Dr. Garima Pulliam EGFR-AF MOSOTHO >60 Normal >=60 [facility] Comment on above: Performed By: #### C MP, BNP, CK ####[facility] Jwbyhostnh0757 [place] [address]Dr. Garima Pulliam EGFR-NON AF MOSOTHO >60 Normal >=60 [facility] Comment on above: Performed By: #### C MP, BNP, CK ####[facility] Snezcjqltb2354 [place] [address]Dr. Garima Pulliam Globulin (S) [Mass/Vol] 3.0 g/dL Normal [facility] Comment on above: Performed By: #### C MP, BNP, CK ####[facility] Qhefaacbdf3445 [place] [address]Dr. Garima Pulliam Glucose [Mass/Vol] 202 mg/dL Critically high 74-106 [facility] Comment on above: Performed By: #### C MP, BNP, CK ####[facility] Lurokvlhwa3789 [place] [address]Dr. Garima Pulliam Potassium [Moles/Vol] 4.0 mmol/L Normal 3.5-5.1 [facility] Comment on above: Performed By: #### C MP, BNP, CK ####[facility] Ufwrprxjbo7105 [place] [address]Dr. Garima Pulliam Protein [Mass/Vol] 6.6 g/dL Normal 6.4-8.2 [facility] Comment on above: Performed By: #### C MP, BNP, CK ####[facility] Imeucdpinl65[address] [place], [place] [address]Dr. Garima Pulliam Sodium [Moles/Vol] 138 mmol/L Normal 136-145 [facility] Comment on above: Performed By: #### C MP, BNP, CK ####[facility] Ebcifcduxs[address] [place], [place] [address]Dr. Garima Pulliam Urea nitrogen [Mass/Vol] 10.0 mg/dL Normal 7.0-18.0 [facility] Comment on above: Performed By: #### C MP, BNP, CK ####[facility] Csiolrxeeg9519 [place] [address]Dr. Garima Pulliam Urea nitrogen/Creatinine [Mass ratio] 12.7 mg/mg Normal [facility] Comment on above: Performed By: #### C MP, BNP, CK ####[facility] Vpnwjorrfr9141 [place] [address]Dr. Garima Pulliam US VERONICA DOP LEG BILon 023 US VERONICA DOP LEG BENOIT Normal [facility] CBC AUTO DIFFon 01-13-2023 BASO # 0.0 103/ul Normal 0.0-0.1 [facility] Comment on above: Performed By: #### C BC ####[facility] Uwtvmlmqld5657 [place] [id number]. Chapisrenu Pulliam Basophils/100 WBC (Bld) 0.0 % Critically low 0.2-2.0 [facility] Comment on above: Performed By: #### C BC ####[facility] Yeroupskmc4317 [place] [address]Dr. Garima Pulliam EO # 0.0 103/ul Normal 0.0-0.7 [facility] Comment on above: Performed By: #### C BC ####[facility] Nmwksvwlwq69[address] [place], [place] [address]Dr. Garima Pulliam Eosinophils/100 WBC (Bld) 0.0 % Critically low 0.9-7.0 [facility] Comment on above: Performed By: #### C BC ####[facility] Rhtbokkuvl6367 [place] [address]Dr. Garima Pulliam Erythrocyte distribution width (RBC) [Ratio] 13.2 % Normal 11.0-15.0 [facility] Comment on above: Performed By: #### C BC ####[facility] Zzijqyjgvg[address] [place], [place] [address]Dr. Garima Pulliam Hematocrit (Bld) [Volume fraction] 46.7 % Normal 42.0-54.0 [facility] Comment on above: Performed By: #### C BC ####[facility] Csoozyocdp[address] [place], [place] [address]Dr. Garima Pulliam Hemoglobin (Bld) [Mass/Vol] 15.6 g/dL Normal 14.0-18.0 [facility] Comment on above: Performed By: #### C BC ####[facility] Xeraxmjoen512[address] [place], [place] [address]Dr. Garima Pulliam IG # 0.01 10e3/ul Normal 0.00-0.03 [facility] Comment on above: Performed By: #### C BC ####[facility] Ilboxamdxu2499 [place] [id number]. Garima Pulliam IG % 0.2 % Normal 0.0-0.5 [facility] Comment on above: Performed By: #### C BC ####[facility] Rqwmjfperd8846 [place] [id number]. Garima Pulliam LYMPH # 0.8 103/ul Critically low 1.2-3.8 [facility] Comment on above: Performed By: #### C BC ####[facility] Sxisnxdkhc3089 [place] [id number]. Garima Pulliam Lymphocytes/100 WBC (Bld) 12.7 % Critically low 20.5-60.0 [facility] Comment on above: Performed By: #### C BC ####[facility] Mboenbjuyc1517 [place] [address]Dr. Garima Pulliam MANUAL DIFF REQ NO Normal [facility] Comment on above: Performed By: #### C BC ####[facility] Jhopmoecot7327 [place] [id number]. Garima Pulliam MCH (RBC) [Entitic mass] 30.2 pg Normal 25.9-34.0 [facility] Comment on above: Performed By: #### C BC ####[facility] Rasxsppnma1787 [place] [id number]. Garima Pulliam MCHC (RBC) [Mass/Vol] 33.4 g/dL Normal 29.9-35.2 [facility] Comment on above: Performed By: #### C BC ####[facility] Gxpxvuqjvc8421 [place] [id number]. Garima Pulliam MCV (RBC) [Entitic vol] 90.3 fL Normal 80.0-94.0 [facility] Comment on above: Performed By: #### C BC ####[facility] Naiarvjowa7448 [place] [id number]. Garima Heraclio MONO # 0.1 103/ul Critically low 0.3-0.8 [facility] Comment on above: Performed By: #### C BC ####[facility] Fhrhsitxkn3661 [place] [id number]. Garima Pulliam Monocytes/100 WBC (Bld) 0.9 % Critically low 1.7-12.0 [facility] Comment on above: Performed By: #### C BC ####[facility] Jwphmpiibn4864 [place] [id number]. Garima Pulliam NEUT # 5.6 103/ul Normal 1.4-6.5 [facility] Comment on above: Performed By: #### C BC ####[facility] Bxhiiwpyzh3442 [place] [id number]. Garima Pulliam Neutrophils/100 WBC (Bld) 86.2 % Critically high 43.0-75.0 [facility] Comment on above: Performed By: #### C BC ####[facility] Xcxkcghops9173 [place] [address]Dr. Garima Pulliam Platelet mean volume (Bld) [Entitic vol] 9.1 fL Critically low 9.5-13.5 [facility] Comment on above: Performed By: #### C BC ####[facility] Vuuwgucafr38[address] [place], [place] [address]Dr. Garima Pulliam PLT 169 103/ul Normal 150-450 [facility] Comment on above: Performed By: #### C BC ####[facility] Bmivmcftke9[address] [place], [place] [address]Dr. Garima Pulliam RBC 5.17 106/ul Normal 4.70-6.10 [facility] Comment on above: Performed By: #### C BC ####[facility] Utyjlzeagf[address] [place], [place] [address]Dr. Garima Pulliam WBC 6.5 103/ul Normal 4.0-11.0 [facility] Comment on above: Performed By: #### C BC ####[facility] Hogabtlfhg8[address] [place], [place] [address]Dr. Garima Pulliam D-DIMERon 01-13-2023 D-DIMER 0.41 mg/L FEU Normal <=0.59 [facility] Comment on above: Performed By: #### D DIM ####[facility] Oojshufgbf7188 [place] [address]Dr. Garima Pulliam D-DIMER COMMENTS SEE BELOW Normal [facility] Comment [...] hospitalization. Performed By: #### D DIM ####[facility] Ynyluedqqp595[address] [place], [place] [address]Dr. Garima Pulliam PROF 14(COMP METB)on 023 Albumin [Mass/Vol] 3.4 g/dL Normal 3.4-5.0 [facility] Comment on above: Performed By: #### C MP ####[facility] Jytagwhkst[address] [place], [place] [address]Dr. Garima Pulliam Albumin/Globulin [Mass ratio] 1.3 {ratio} Normal [facility] Comment on above: Performed By: #### C MP ####[facility] Xfwucvfxwf804[address] [place], [place] [address]Dr. Garima Pulliam ALP [Catalytic activity/Vol] 83 U/L Normal 46-116 [facility] Comment on above: Performed By: #### C MP ####[facility] Xssooevyen7[address] [place], [place] [address]Dr. Garima Pulliam ALT [Catalytic activity/Vol] 25 U/L Normal 16-63 [facility] Comment on above: Performed By: #### C MP ####[facility] Navnhsoetk5211 [place] [address]Dr. Garima Pulliam Anion gap [Moles/Vol] 14.5 mmol/L Normal [facility] Comment on above: Performed By: #### C MP ####[facility] Nunuabcnkw62[address] [place], [place] [address]Dr. Garima Pulliam AST [Catalytic activity/Vol] 19 U/L Normal 15-37 [facility] Comment on above: Performed By: #### C MP ####[facility] Xiyhtffcuj55[address] [place], [place] [address]Dr. Garima Pulliam Bilirubin [Mass/Vol] 0.4 mg/dL Normal 0.2-1.0 [facility] Comment on above: Performed By: #### C MP ####[facility] Vdusogspiw087[address] [place], [place] [address]Dr. Garima Pulliam Calcium [Mass/Vol] 8.7 mg/dL Normal 8.5-10.1 [facility] Comment on above: Performed By: #### C MP ####[facility] Bnbvgakvfk547[address] [place], [place] [address]Dr. Garima Pulliam Chloride [Moles/Vol] 104 mmol/L Normal 98-107 [facility] Comment on above: Performed By: #### C MP ####[facility] Tfjutqagtx[address] [place], [place] [address]Dr. Garima Pulliam CO2 [Moles/Vol] 24.5 mmol/L Normal 21.0-32.0 [facility] Comment on above: Performed By: #### C MP ####[facility] Kfmeuqbuug064[address] [place], [place] [address]Dr. Garima Pulliam Creatinine [Mass/Vol] 0.70 mg/dL Normal 0.70-1.30 [facility] Comment on above: Performed By: #### C MP ####[facility] Gbwbtzdblb0114[address] [place], [place] [address]Dr. Garima Heraclio EGFR-AF MOSOTHO >60 Normal >=60 [facility] Comment on above: Performed By: #### C MP ####[facility] Klbytnjsez212[address] [place], [place] [address]Dr. Chapisrenu Heraclio EGFR-NON AF MOSOTHO >60 Normal >=60 [facility] Comment on above: Performed By: #### C MP ####[facility] Eamvxpmyfl17[address] [place], [place] [address]Dr. Chapisrenu Pulliam Globulin (S) [Mass/Vol] 2.6 g/dL Normal [facility] Comment on above: Performed By: #### C MP ####[facility] Ljbzxfeeuw2489 [place] [address]Dr. Garima Pulliam Glucose [Mass/Vol] 196 mg/dL Critically high 74-106 [facility] Comment on above: Performed By: #### C MP ####[facility] Edmyfndqfl3352 [place] [address]Dr. Garima Pulliam Potassium [Moles/Vol] 4.0 mmol/L Normal 3.5-5.1 [facility] Comment on above: Performed By: #### C MP ####[facility] Ushcufhpvs7612 [place] [address]Dr. Garima Pulliam Protein [Mass/Vol] 6.0 g/dL Critically low 6.4-8.2 [facility] Comment on above: Performed By: #### C MP ####[facility] Efphedqhkg[address] [place], [place] [address]Dr. Garima Pulliam Sodium [Moles/Vol] 139 mmol/L Normal 136-145 [facility] Comment on above: Performed By: #### C MP ####[facility] Xvpexdvhht1914[address] [place], [place] [address]Dr. Garima Pulliam Urea nitrogen [Mass/Vol] 7.0 mg/dL Normal 7.0-18.0 [facility] Comment on above: Performed By: #### C MP ####[facility] Htsulwltoh[address] [place], [place] [address]Dr. Garima Heraclio Urea nitrogen/Creatinine [Mass ratio] 10.0 mg/mg Normal [facility] Comment on above: Performed By: #### C MP ####[facility] Wfmcujrjms147[address] [place], [place] [address]Dr. Garima Heraclio BNPon 01-12-2023 Natriuretic peptide B (Bld) [Mass/Vol] 141.0 pg/mL Normal <=900.0 [facility] Comment on above: Performed By: #### C MP, BNP, HSTROPN ####[facility] Nglyhawuzf207[address] [place], [place] [address]Dr. Garima Heraclio CBC AUTO DIFFon 01-12-2023 BASO # 0.0 103/ul Normal 0.0-0.1 [facility] Comment on above: Performed By: #### C BC ####[facility] Dzaahlexlf9686 [place] [id number]. Garima Heraclio Basophils/100 WBC (Bld) 0.2 % Normal 0.2-2.0 [facility] Comment on above: Performed By: #### C BC ####[facility] Efqyxelzbe6815 [place] [address]Dr. Garima Heraclio EO # 0.2 103/ul Normal 0.0-0.7 [facility] Comment on above: Performed By: #### C BC ####[facility] Mhulnvdvck6764 [place] [address]Dr. Garima Heraclio Eosinophils/100 WBC (Bld) 2.7 % Normal 0.9-7.0 [facility] Comment on above: Performed By: #### C BC ####[facility] Cscbbjdhus[address] [place], [place] [address]Dr. Garima Pulliam Erythrocyte distribution width (RBC) [Ratio] 13.3 % Normal 11.0-15.0 [facility] Comment on above: Performed By: #### C BC ####[facility] Fqoikcfday639[address] [place], [place] [address]Dr. Garima Pulliam Hematocrit (Bld) [Volume fraction] 42.3 % Normal 42.0-54.0 [facility] Comment on above: Performed By: #### C BC ####[facility] Zpssdcyxdl[address] [place], [place] [address]Dr. Garima Pulliam Hemoglobin (Bld) [Mass/Vol] 14.3 g/dL Normal 14.0-18.0 [facility] Comment on above: Performed By: #### C BC ####[facility] Fllmdddnba847[address] [place], [place] [address]Dr. Garima Pulliam IG # 0.02 10e3/ul Normal 0.00-0.03 [facility] Comment on above: Performed By: #### C BC ####[facility] Lfgyaafgks[address] [place] [id number]. Garima Pulliam IG % 0.2 % Normal 0.0-0.5 [facility] Comment on above: Performed By: #### C BC ####[facility] Mzytwlwbal[address] [place] [id number]. Garima Pulliam LYMPH # 2.6 103/ul Normal 1.2-3.8 [facility] Comment on above: Performed By: #### C BC ####[facility] Poepyjvyym34[address] [place] [id number]. Garima Heraclio Lymphocytes/100 WBC (Bld) 29.6 % Normal 20.5-60.0 [facility] Comment on above: Performed By: #### C BC ####[facility] Bgedacafss[address] [place] [address]Dr. Garima Heraclio MANUAL DIFF REQ NO Normal [facility] Comment on above: Performed By: #### C BC ####[facility] Rhsqgveicy7[address] [place] [id number]. Garima Pulliam MCH (RBC) [Entitic mass] 30.2 pg Normal 25.9-34.0 [facility] Comment on above: Performed By: #### C BC ####[facility] Mofafrviii[address] [place] [address]Dr. Garima Pulliam MCHC (RBC) [Mass/Vol] 33.8 g/dL Normal 29.9-35.2 [facility] Comment on above: Performed By: #### C BC ####[facility] Zdgywdaygl9599 [place] [id number]. Garima Pulliam MCV (RBC) [Entitic vol] 89.2 fL Normal 80.0-94.0 [facility] Comment on above: Performed By: #### C BC ####[facility] X[address]quizgwus[address] [place], [place] [address]Dr. Chapisrenu Pulliam MONO # 0.7 103/ul Normal 0.3-0.8 [facility] Comment on above: Performed By: #### C BC ####[facility] Wraoizgkhf4[address] [place] [id number]. Garima Pulliam Monocytes/100 WBC (Bld) 8.3 % Normal 1.7-12.0 [facility] Comment on above: Performed By: #### C BC ####[facility] Cnxbjxjmuh78[address] [place] [id number]. Garima Pulliam NEUT # 5.1 103/ul Normal 1.4-6.5 [facility] Comment on above: Performed By: #### C BC ####[facility] Jtdhrjtoxe36[address] [place] [id number]. Garima Pulliam Neutrophils/100 WBC (Bld) 59.0 % Normal 43.0-75.0 [facility] Comment on above: Performed By: #### C BC ####[facility] Xcqwsqgstt7321 [place] [address]Dr. Garima Pulliam Platelet mean volume (Bld) [Entitic vol] 8.7 fL Critically low 9.5-13.5 [facility] Comment on above: Performed By: #### C BC ####[facility] Raamiopqqm[address] [place] [address]Dr. Garima Pulliam PLT 182 103/ul Normal 150-450 [facility] Comment on above: Performed By: #### C BC ####[facility] Hcnhcskwvh29[address] [place] [id number]. Garima Pulliam RBC 4.74 106/ul Normal 4.70-6.10 [facility] Comment on above: Performed By: #### C BC ####[facility] Ezwslfum[address] [place], [place] [address]Dr. Garima Pulliam WBC 8.7 103/ul Normal 4.0-11.0 [facility] Comment on above: Performed By: #### C BC ####[facility] Zlrwvbudql[address] [place], [place] [address]Dr. Garima Pulliam Covid-19 PCR (CVDTB)on 12-25 SARS-CoV-2 (COVID-19) RNA MARIE+probe Ql (Unsp spec) Not detected Normal NOT DETECTED [facility] Comment on above: Result Comment: [...] for this test is supported by the Wearing Apparel Assembler of Health and Human Service's declaration that [...] used). Performed By: #### C VDTBH ####[facility] Riffcmcibt6[address] [place] [address]Dr. aGrima Pulliam PROF 14(COMP METB)on 023 Albumin [Mass/Vol] 3.6 g/dL Normal 3.4-5.0 [facility] Comment on above: Performed By: #### C MP, BNP, HSTROPN ####[facility] Xqzylkhejr67[address] [place] [address]Dr. Garima Pulliam Albumin/Globulin [Mass ratio] 1.5 {ratio} Normal [facility] Comment on above: Performed By: #### C MP, BNP, HSTROPN ####[facility] Oemqpittii[address] [place] [address]Dr. Garima Pulliam ALP [Catalytic activity/Vol] 79 U/L Normal 46-116 [facility] Comment on above: Performed By: #### C MP, BNP, HSTROPN ####[facility] Pgbmugzzwc4586 [place] [address]Dr. Garima Pulliam ALT [Catalytic activity/Vol] 27 U/L Normal 16-63 [facility] Comment on above: Performed By: #### C MP, BNP, HSTROPN ####[facility] Rjohbggfjw79[address] [place] [address]Dr. Garima Pulliam Anion gap [Moles/Vol] 11.7 mmol/L Normal [facility] Comment on above: Performed By: #### C MP, BNP, HSTROPN ####[facility] Wzpkwejybs4[address] [place] [address]Dr. Garima Pulliam AST [Catalytic activity/Vol] 21 U/L Normal 15-37 [facility] Comment on above: Performed By: #### C MP, BNP, HSTROPN ####[facility] Imuievdzbt98[address] [place] [address]Dr. Garima Pulliam Bilirubin [Mass/Vol] 0.3 mg/dL Normal 0.2-1.0 [facility] Comment on above: Performed By: #### C MP, BNP, HSTROPN ####[facility] Vyrbyfsmuv53[address] [place] [address]Dr. Garima Pulliam Calcium [Mass/Vol] 8.9 mg/dL Normal 8.5-10.1 [facility] Comment on above: Performed By: #### C MP, BNP, HSTROPN ####[facility] Ckpcqddcyj24[address] [place] [address]Dr. Garima Pulliam Chloride [Moles/Vol] 107 mmol/L Normal 98-107 [facility] Comment on above: Performed By: #### C MP, BNP, HSTROPN ####[facility] Fxrjofjcaj24[address] [place] [address]Dr. Garima Pulliam CO2 [Moles/Vol] 26.0 mmol/L Normal 21.0-32.0 [facility] Comment on above: Performed By: #### C MP, BNP, HSTROPN ####[facility] Rfhsqzkyzd4[address] [place] [address]Dr. Garima Pulliam Creatinine [Mass/Vol] 0.65 mg/dL Critically low 0.70-1.30 [facility] Comment on above: Performed By: #### C MP, BNP, HSTROPN ####[facility] Dwkeaczkau34[address] [place] [address]Dr. Yilan Pulliam EGFR-AF MOSOTHO >60 Normal >=60 [facility] Comment on above: Performed By: #### C MP, BNP, HSTROPN ####[facility] Mtjlnarkch35[address] [place] [address]Dr. Garima Pulliam EGFR-NON AF MOSOTHO >60 Normal >=60 [facility] Comment on above: Performed By: #### C MP, BNP, HSTROPN ####[facility] Nkovfkvuwt[address] [place] [address]Dr. Garima Pulliam Globulin (S) [Mass/Vol] 2.4 g/dL Normal [facility] Comment on above: Performed By: #### C MP, BNP, HSTROPN ####[facility] Zdymydiepy[address] [place], [place] [address]Dr. Garima Pulliam Glucose [Mass/Vol] 85 mg/dL Normal 74-106 [facility] Comment on above: Performed By: #### C MP, BNP, HSTROPN ####[facility] Izhjqxwvgi35[address] [place] [address]Dr. Garima Pulliam Potassium [Moles/Vol] 3.7 mmol/L Normal 3.5-5.1 [facility] Comment on above: Performed By: #### C MP, BNP, HSTROPN ####[facility] Ojrpxgdujm6[address] [place] [address]Dr. Garima Pulliam Protein [Mass/Vol] 6.0 g/dL Critically low 6.4-8.2 [facility] Comment on above: Performed By: #### C MP, BNP, HSTROPN ####[facility] Ndzjtmhorw9[address] [place] [address]Dr. Garima Pulliam Sodium [Moles/Vol] 141 mmol/L Normal 136-145 [facility] Comment on above: Performed By: #### C MP, BNP, HSTROPN ####[facility] Huqjxjspjh52[address] [place] [address]Dr. Garima Pulliam Urea nitrogen [Mass/Vol] 5.0 mg/dL Critically low 7.0-18.0 [facility] Comment on above: Performed By: #### C MP, BNP, HSTROPN ####[facility] Qixrrzeudw5307 [place] [address]Dr. Garima Pulliam Urea nitrogen/Creatinine [Mass ratio] 7.7 mg/mg Normal [facility] Comment on above: Performed By: #### C MP, BNP, HSTROPN ####[facility] Lakpvhdbsy027[address] [place] [address]Dr. Garima Pulliam PROTIMEon 01-12-2023 INR Coag (PPP) [Relative time] 1.16 {INR} Normal [facility] Comment on above: Performed By: #### P TT, PT ####[facility] Pcdkmeypez3[address] [place] [address]Dr. Garima Pulliam INR GUIDELINES SEE BELOW Normal [facility] Comment on above: Result Comment: WESLEY RED INR: 2.0 - 3.0 CONDITIONS NOT LISTED BELOW 2.5 - 3.5 FOR PROSTHETIC HEART VALVE REPLACEMENT 2.5 - 3.5 RECURRENT THROMBOSIS Performed By: #### P TT, PT ####[facility] Njofwqfwtn[address] [place], [place] [address]Dr. Garima Pulliam PT Coag (PPP) [Time] 12.2 s Critically high 9.0-11.6 [facility] Comment on above: Performed By: #### P TT, PT ####[facility] Awupoirmln[address] [place] [address]Dr. Garima Pulliam PTTon 01-12-2023 aPTT Coag (Bld) [Time] 29.1 s Normal 22.3-36.2 [facility] Comment on above: Performed By: #### P TT, PT ####[facility] Fpsaysthlq[address] [place], [place] [address]Dr. Garima Pulliam TROPONIN, HIGH SENSITIVITYon 01-12-2023 HSTROP 10.3 pg/mL Normal 4.0-76.1 [facility] Comment on above: Result Comment: CUT- OFF POINTS HAVE BEEN ESTABLISHED BASED ON THE FOURTH UNIVERSAL DEFINITIONS OF MYOCARDIALINFARCTION. THE UPPER REFERENCE LIMIT (URL) OF TROPONIN, DEFINED THE 99TH PERCENTILE OFcTnI DISTRIBUTION IN A REFERENCE POPULATION, HAS BEEN CONFIRMED THE DECISION THRESHOLDFOR CT DIAGNOSIS. Performed By: #### H STROPN ####[facility] Qggrtrewyh[address] [place] [address]Dr. Garima Pulliam HSTROP 9.2 pg/mL Normal 4.0-76.1 [facility] Comment on above: Result Comment: CUT- OFF POINTS HAVE BEEN ESTABLISHED BASED ON THE FOURTH UNIVERSAL DEFINITIONS OF MYOCARDIALINFARCTION. THE UPPER REFERENCE LIMIT (URL) OF TROPONIN, DEFINED THE 99TH PERCENTILE OFcTnI DISTRIBUTION IN A REFERENCE POPULATION, HAS BEEN CONFIRMED THE DECISION THRESHOLDFOR CT DIAGNOSIS. Performed By: #### C MP, BNP, HSTROPN ####[facility] Eiloutgrax95[address] [place] [address]Dr. Garima Pulliam XR CHEST 1 Von 01-12-2023 XR CHEST [address] [facility] XR CHEST 1 Von 01-01-2023 XR CHEST 1 V Normal [facility] CARDIAC NASH 3-6on 3 CK [Catalytic activity/Vol] 196 U/L Normal 39-308 [facility] Comment on above: Performed By: #### C MREP ####[facility] Qklzimuzxx23[address] [place] [address]Dr. Garima Pulliam CK.MB [Mass/Vol] 7.41 ng/mL Critically high <=3.60 [facility] Comment on above: Performed By: #### C MREP ####[facility] Brcfebrgsf59[address] [place] [address]Dr. Garima Pulliam HSTROP 10.3 pg/mL Normal 4.0-76.1 [facility] Comment on above: Result Comment: CUT- OFF POINTS HAVE BEEN ESTABLISHED BASED ON THE FOURTH UNIVERSAL DEFINITIONS OF MYOCARDIALINFARCTION. THE UPPER REFERENCE LIMIT (URL) OF TROPONIN, DEFINED THE 99TH PERCENTILE OFcTnI DISTRIBUTION IN A REFERENCE POPULATION, HAS BEEN CONFIRMED THE DECISION THRESHOLDFOR CT DIAGNOSIS. Performed By: #### C MREP ####[facility] Ourvyyugmb50[address] [place] [id number]. Garima Pulliam XR CHEST 1 Von 12-26-2022 XR CHEST [address] [facility] BNPon 12-25-2022 Natriuretic peptide B (Bld) [Mass/Vol] 98.0 pg/mL Normal <=900.0 [facility] Comment on above: Performed By: #### B MARVIN FRENCH CMADM ####[facility] Hgqgulybgb58[address] [place] [address]Dr. Garima Pulliam CARDIAC NASH ADMITon 023 CK [Catalytic activity/Vol] 208 U/L Normal 39-308 [facility] Comment on above: Performed By: #### B MARVIN FRENCH CMADM ####[facility] Izemctoqzz5[address] [place] [address]Dr. Garima Pulliam CK.MB [Mass/Vol] 7.63 ng/mL Critically high <=3.60 [facility] Comment on above: Performed By: #### B MARVIN FRENCH CMADM ####[facility] Haqcmjyzuc[address] [place], [place] [address]Dr. Garima Pulliam HSTROP 8.8 pg/mL Normal 4.0-76.1 [facility] Comment on above: Result Comment: CUT- OFF POINTS HAVE BEEN ESTABLISHED BASED ON THE FOURTH UNIVERSAL DEFINITIONS OF MYOCARDIALINFARCTION. THE UPPER REFERENCE LIMIT (URL) OF TROPONIN, DEFINED THE 99TH PERCENTILE OFcTnI DISTRIBUTION IN A REFERENCE POPULATION, HAS BEEN CONFIRMED THE DECISION THRESHOLDFOR CT DIAGNOSIS. Performed By: #### B MARVIN FRENCH CMADM ####[facility] Japysrcjcg[address] [place], [place] [address]Dr. Garima Pulliam DORIS 83 ng/mL Normal 16-96 [facility] Comment on above: Performed By: #### B MARVIN FRENCH CMADM ####[facility] Owblnglgnb[address] [place], [place] [address]Dr. Garima Pulliam CBC AUTO DIFFon 12-25-2022 BASO # 0.0 103/ul Normal 0.0-0.1 [facility] Comment on above: Performed By: #### C BC ####[facility] Xwknsjsxvv[address] [place], [place] [address]Dr. Garima Pulliam Basophils/100 WBC (Bld) 0.0 % Critically low 0.2-2.0 [facility] Comment on above: Performed By: #### C BC ####[facility] Ghqcdxclcz52[address] [place] [address]Dr. Garima Pulliam EO # 0.0 103/ul Normal 0.0-0.7 [facility] Comment on above: Performed By: #### C BC ####[facility] Tufcerctja[address] [place], [place] [address]Dr. Garima Pulliam Eosinophils/100 WBC (Bld) 0.7 % Critically low 0.9-7.0 [facility] Comment on above: Performed By: #### C BC ####[facility] Memvvsvqqf[address] [place], [place] [address]Dr. Garima Pulliam Erythrocyte distribution width (RBC) [Ratio] 13.4 % Normal 11.0-15.0 [facility] Comment on above: Performed By: #### C BC ####[facility] Uaigutjebj[address] [place], [place] [address]Dr. Garima Pulliam Hematocrit (Bld) [Volume fraction] 42.9 % Normal 42.0-54.0 [facility] Comment on above: Performed By: #### C BC ####[facility] Rcduuykouk[address] [place], [place] [address]Dr. Garima Pulliam Hemoglobin (Bld) [Mass/Vol] 14.4 g/dL Normal 14.0-18.0 [facility] Comment on above: Performed By: #### C BC ####[facility] Sazuwxjixy[address] [place], [place] [address]Dr. Garima Pulliam IG # 0.00 10e3/ul Normal 0.00-0.03 [facility] Comment on above: Performed By: #### C BC ####[facility] Vvdcnropha[address] [place], [place] [address]Dr. Garima Pulliam IG % 0.0 % Normal 0.0-0.5 [facility] Comment on above: Performed By: #### C BC ####[facility] Vmpybmouiv[address] [place], [place] [address]Dr. Garima Pulliam LYMPH # 2.4 103/ul Normal 1.2-3.8 [facility] Comment on above: Performed By: #### C BC ####[facility] Uvwnwptvun57[address] [place] [id number]. Chapisrenu Pulliam Lymphocytes/100 WBC (Bld) 29.2 % Normal 20.5-60.0 [facility] Comment on above: Performed By: #### C BC ####[facility] Naicjpzloi77[address] [place] [id number]. Garima Pulliam MANUAL DIFF REQ NO Normal [facility] Comment on above: Performed By: #### C BC ####[facility] Ldmlybpwfc9807 [place] [id number]. Garima Pulliam MCH (RBC) [Entitic mass] 30.7 pg Normal 25.9-34.0 [facility] Comment on above: Performed By: #### C BC ####[facility] Ovlaguzgrq[address] [place], [place] [address]Dr. Garima Pulliam MCHC (RBC) [Mass/Vol] 33.6 g/dL Normal 29.9-35.2 [facility] Comment on above: Performed By: #### C BC ####[facility] Inysiyjsxh[address] [place], [place] [address]Dr. Garima Pulliam MCV (RBC) [Entitic vol] 91.5 fL Normal 80.0-94.0 [facility] Comment on above: Performed By: #### C BC ####[facility] Ldwqpeugmj[address] [place], [place] [address]Dr. Garima Pulliam MONO # 0.0 103/ul Critically low 0.3-0.8 [facility] Comment on above: Performed By: #### C BC ####[facility] Gmtawqajtk1654 [place] [address]Dr. Garima Pulliam Monocytes/100 WBC (Bld) 8.0 % Normal 1.7-12.0 [facility] Comment on above: Performed By: #### C BC ####[facility] Hmsaffepgw[address] [place], [place] [address]Dr. Garima Pulliam NEUT # 5.1 103/ul Normal 1.4-6.5 [facility] Comment on above: Performed By: #### C BC ####[facility] Oioycygcsl6152 [place], [place] [address]Yv. Garima Pulliam Neutrophils/100 WBC (Bld) 62.8 % Normal 43.0-75.0 [facility] Comment on above: Performed By: #### C BC ####[facility] Kqdzofteyp0992 [place], [place] [address]Kh. Garima Pulliam Platelet mean volume (Bld) [Entitic vol] 8.6 fL Critically low 9.5-13.5 [facility] Comment on above: Performed By: #### C BC ####[facility] Dbzmgynewt0416 [place] [id number]. Garima Pulliam PLT 200 103/ul Normal 150-450 [facility] Comment on above: Performed By: #### C BC ####[facility] Jllcfykzpg4501 [place] [id number]. Garima Pulliam RBC 4.69 106/ul Critically low 4.70-6.[address] [facility] Comment on above: Performed By: #### C BC ####[facility] Cbopaijehc6780 [place], [place] [address]Uj. Garima Pulliam WBC 8.2 103/ul Normal 4.0-11.0 [facility] Comment on above: Performed By: #### C BC ####[facility] Hdbkinxrap1379 [place], [place] [address]Dc. Garima Pulliam [facility]on SARS-CoV-2 (COVID-19) RNA MARIE+probe Ql (Unsp spec) Not detected Normal NOT DETECTED [facility] Comment on above: Result Comment: [...] for this test is supported by the Wearing Apparel Assembler of Health and Human Service's declaration that [...] used). Performed By: #### C VDTBH ####[facility] Fwmkiavcgk[address] [place], [place] [address]Dr. Garima Pulliam INFLUENZA A AND B AGon 12-25 INFLUANEGH SEE BELOW Normal [facility] Comment on above: Result Comment: Nega tive for Flu A protein angiten. Infection due to Flu A cannot be ruled out. Flu A angiten in the sample may be below the detection limit of the test. Performed By: #### I NFLUAB ####[facility] Kcewcmbvcy[address] [place], [place] [address]Dr. Garima Pulliam INFLUBNEGH SEE BELOW Normal [facility] Comment on above: Result Comment: Nega tive for Flu B protein antigen. Infection due to Flu B cannot be ruled out. Flu B antigen in the sample may be below the detection limit of the test. Performed By: #### I NFLUAB ####[facility] Aplbvmkvaw[address] [place], [place] [address]Dr. Garima Pulliam INFLUENZA A AG Negative Normal NEGATIVE SEE COMMENT [facility] Comment on above: Performed By: #### I NFLUAB ####[facility] Gnefvvbeck[address] [place], [place] [address]Dr. renu [facility] INFLUENZA B AG Negative Normal NEGATIVE SEE COMMENT [facility] Comment on above: Performed By: #### I NFLUAB ####[facility] Atsgvwpwfo[address] [place], [place] [address]Dr. Garima Pulliam PROF CHEM 8 (BAS METB)on Anion gap [Moles/Vol] 11.1 mmol/L Normal [facility] Comment on above: Performed By: #### B CORRECTIONS CASEWORKER, BMP, CMADM ####[facility] Qjhsrlwmom[address] [place], [place] [address]Dr. Garima Pulliam Calcium [Mass/Vol] 8.5 mg/dL Normal 8.5-10.1 [facility] Comment on above: Performed By: #### B CORRECTIONS CASEWORKER, MARVIN, CMADM ####[facility] Jfhqjbqyhx10[address] [place] [id number]. Garima Pulliam Chloride [Moles/Vol] 106 mmol/L Normal 98-107 [facility] Comment on above: Performed By: #### B CORRECTIONS CASEWORKER, BMP, CMADM ####[facility] Xgdueodsds[address] [place] [address]Dr. Garima Pulliam CO2 [Moles/Vol] 27.4 mmol/L Normal 21.0-32.0 [facility] Comment on above: Performed By: #### B CORRECTIONS CASEWORKER, MARVIN, CMADM ####[facility] Ojsluvosjf1696 [place] [address]Dr. Garima Pulliam Creatinine [Mass/Vol] 0.65 mg/dL Critically low 0.70-1.30 [facility] Comment on above: Performed By: #### B CORRECTIONS CASEWORKER, MARVIN, CMADM ####[facility] Wmwvuuazzu1090 [place] [address]Dr. aGrima Pulliam EGFR-AF MOSOTHO >60 Normal >=60 [facility] Comment on above: Performed By: #### B CORRECTIONS CASEWORKER, BMP, CMADM ####[facility] Dyeiahmeln0591 [place] [address]Dr. Garima Pulliam EGFR-NON AF MOSOTHO >60 Normal >=60 [facility] Comment on above: Performed By: #### B CORRECTIONS CASEWORKER, BMP, CMADM ####[facility] Gdjsevhqqk5542 [place] [address]Dr. Garima Pulliam Glucose [Mass/Vol] 140 mg/dL Critically high 74-106 [facility] Comment on above: Performed By: #### B CORRECTIONS CASEWORKER, BMP, CMADM ####[facility] Nluszlglcb0613 [place] [address]Dr. Garima Pulliam Potassium [Moles/Vol] 3.5 mmol/L Normal 3.5-5.1 [facility] Comment on above: Performed By: #### B CORRECTIONS CASEWORKER, BMP, CMADM ####[facility] Afmijjtzog6719 [place] [address]Dr. Garima Pulliam Sodium [Moles/Vol] 141 mmol/L Normal 136-145 [facility] Comment on above: Performed By: #### B CORRECTIONS CASEWORKER, BMP, CMADM ####[facility] Zlvrvblere4778 [place] [address]Dr. Garima Pulliam Urea nitrogen [Mass/Vol] 8.0 mg/dL Normal 7.0-18.0 [facility] Comment on above: Performed By: #### B CORRECTIONS CASEWORKER, BMP, CMADM ####[facility] Yorpiixqwq7532 [place] [address]Dr. Garima Pulliam Urea nitrogen/Creatinine [Mass ratio] 12.3 mg/mg Normal [facility] Comment on above: Performed By: #### B CORRECTIONS CASEWORKER, BMP, CMADM ####[facility] Jghoaziikw[address] [place], [place] [address]Dr. Garima Pulliam CARDIAC NASH ADMITon 023 CK [Catalytic activity/Vol] 165 U/L Normal 39-308 [facility] Comment on above: Performed By: #### B DAVID, CMADM ####[facility] Mhyyhmbqyr[address] [place], [place] [address]Dr. Garima Pulliam CK.MB [Mass/Vol] 6.48 ng/mL Critically high <=3.60 [facility] Comment on above: Performed By: #### B MP, CMADM ####[facility] Yctbwgjauz[address] [place], [place] [address]Dr. Garima Pulliam HSTROP 11.7 pg/mL Normal 4.0-76.1 [facility] Comment on above: Result Comment: CUT- OFF POINTS HAVE BEEN ESTABLISHED BASED ON THE FOURTH UNIVERSAL DEFINITIONS OF MYOCARDIALINFARCTION. THE UPPER REFERENCE LIMIT (URL) OF TROPONIN, DEFINED THE 99TH PERCENTILE OFcTnI DISTRIBUTION IN A REFERENCE POPULATION, HAS BEEN CONFIRMED THE DECISION THRESHOLDFOR CT DIAGNOSIS. Performed By: #### B MP, CMADM ####[facility] Akiraosjdp[address] [place], [place] [address]Dr. Garima Pulliam DORIS 83 ng/mL Normal 16-96 [facility] Comment on above: Performed By: #### B MP, CMADM ####[facility] Twzmzyriok96[address] [place] [address]Dr. Garima Pulliam CBC AUTO DIFFon 12-10-2022 BASO # 0.0 103/ul Normal 0.0-0.1 [facility] Comment on above: Performed By: #### C BC ####[facility] Duxfbvqxdt[address] [place], [place] [address]Dr. Garima Heraclio Basophils/100 WBC (Bld) 0.3 % Normal 0.2-2.0 [facility] Comment on above: Performed By: #### C BC ####[facility] Oyehvimtqn[address] [place], [place] [address]Dr. Garima Pulliam EO # 0.1 103/ul Normal 0.0-0.7 [facility] Comment on above: Performed By: #### C BC ####[facility] Imoovrwkqu[address] [place], [place] [address]Dr. Garima Pulliam Eosinophils/100 WBC (Bld) 0.4 % Critically low 0.9-7.0 [facility] Comment on above: Performed By: #### C BC ####[facility] Oyvehqmdwo9[address] [place], [place] [address]Dr. Garima Pulliam Erythrocyte distribution width (RBC) [Ratio] 13.2 % Normal 11.0-15.0 [facility] Comment on above: Performed By: #### C BC ####[facility] Wjbzmkdxxd[address] [place], [place] [address]Dr. Garima Pulliam Hematocrit (Bld) [Volume fraction] 42.4 % Normal 42.0-54.0 [facility] Comment on above: Performed By: #### C BC ####[facility] Jpnauwlepx[address] [place], [place] [address]Dr. Garima Pulliam Hemoglobin (Bld) [Mass/Vol] 14.4 g/dL Normal 14.0-18.0 [facility] Comment on above: Performed By: #### C BC ####[facility] Bmmuzlssig60[address] [place] [id number]. Garima Heraclio IG # 0.05 10e3/ul Critically high 0.00-0.03 [facility] Comment on above: Performed By: #### C BC ####[facility] Xbjxpimbiv2177 [place] [address]Dr. Garima Heraclio IG % 0.4 % Normal 0.0-0.5 [facility] Comment on above: Performed By: #### C BC ####[facility] Eswjvhsgur[address] [place], [place] [address]Dr. Garima Pulilam LYMPH # 0.8 103/ul Critically low 1.2-3.8 [facility] Comment on above: Performed By: #### C BC ####[facility] Lwpognekrf[address] [place], [place] [address]Dr. Chapisrenu Pulliam Lymphocytes/100 WBC (Bld) 6.5 % Critically low 20.5-60.0 [facility] Comment on above: Performed By: #### C BC ####[facility] [address]sp[address] [place], [place] [address]Dr. Chapisrenu Pulliam MANUAL DIFF REQ NO Normal [facility] Comment on above: Performed By: #### C BC ####[facility] Uxzxuv[address] [place], [place] [address]DrAdalberto Garima Pulliam MCH (RBC) [Entitic mass] 30.5 pg Normal 25.9-34.0 [facility] Comment on above: Performed By: #### C BC ####[facility] Sjpxrspqhx[address] [place], [place] [address]DrAdalberto Garima Heraclio MCHC (RBC) [Mass/Vol] 34.0 g/dL Normal 29.9-35.2 [facility] Comment on above: Performed By: #### C BC ####[facility] Nefisofaaf[address] [place], [place] [address]DrAdalberto Garima Heraclio MCV (RBC) [Entitic vol] 89.8 fL Normal 80.0-94.0 [facility] Comment on above: Performed By: #### C BC ####[facility] Iflwrxdzbf[address] [place], [place] [address]Dr. Garima Pulliam MONO # 0.2 103/ul Critically low 0.3-0.8 [facility] Comment on above: Performed By: #### C BC ####[facility] Zombudfvak[address] [place] [id number]. Garima Pulliam Monocytes/100 WBC (Bld) 2.0 % Normal 1.7-12.0 [facility] Comment on above: Performed By: #### C BC ####[facility] Vnvckasudd[address] [place] [address]Dr. Chapisrenu Heraclio NEUT # 10.5 103/ul Critically high 1.4-6.5 [facility] Comment on above: Performed By: #### C BC ####[facility] Fokpthqvka[address] [place] [address]Dr. Garima Pulliam Neutrophils/100 WBC (Bld) 90.4 % Critically high 43.0-75.0 [facility] Comment on above: Performed By: #### C BC ####[facility] Tgmzjtaduh28[address] [place] [address]Dr. Garima Pulliam Platelet mean volume (Bld) [Entitic vol] 9.4 fL Critically low 9.5-13.5 [facility] Comment on above: Performed By: #### C BC ####[facility] Obrmyiasjg4[address] [place] [address]Dr. Garima Pulliam PLT 198 103/ul Normal 150-450 [facility] Comment on above: Performed By: #### C BC ####[facility] Ojxhyxdztr6315 [place] [address]Dr. Garima Pulliam RBC 4.72 106/ul Normal 4.70-6.10 [facility] Comment on above: Performed By: #### C BC ####[facility] Lhbpbakicc7615 [place] [id number]. Garima Pulliam WBC 11.6 103/ul Critically high 4.0-11.0 [facility] Comment on above: Performed By: #### C BC ####[facility] Waosxnaglk24[address] [place] [address]DrAdalberto Pulliam PROF CHEM 8 (BAS METB)on Anion gap [Moles/Vol] 11.3 mmol/L Normal [facility] Comment on above: Performed By: #### B NANCY HERNANDEZ ####[facility] Qonzrdyjir[address] [place] [address]Dr. Garima Pulliam Calcium [Mass/Vol] 8.9 mg/dL Normal 8.5-10.1 [facility] Comment on above: Performed By: #### B NANCY HERNANDEZ ####[facility] Dutavgwnhp4817 [place] [address]Dr. Garima Pulliam Chloride [Moles/Vol] 103 mmol/L Normal 98-107 [facility] Comment on above: Performed By: #### B NANCY HERNANDEZ ####[facility] Olcqbxhrou[address] [place], [place] [address]Dr. Garima Pulliam CO2 [Moles/Vol] 28.2 mmol/L Normal 21.0-32.0 [facility] Comment on above: Performed By: #### NANCY Larkin MP ####[facility] Fzdxdfxceh5[address] [place] [address]Dr. Chapisrenu Pulliam Creatinine [Mass/Vol] 0.60 mg/dL Critically low 0.70-1.30 [facility] Comment on above: Performed By: #### NANCY Larkin MP ####[facility] Byseadzqis6[address] [place] [address]Dr. Garima Pulliam EGFR-AF MOSOTHO >60 Normal >=60 [facility] Comment on above: Performed By: #### NANCY Larkin MP ####[facility] Mzrfefeltl3299 [place] [address]Dr. Garima Pulliam EGFR-NON AF MOSOTHO >60 Normal >=60 [facility] Comment on above: Performed By: #### NANCY Larkin MP ####[facility] Xqvlptokrk18[address] [place], [place] [address]Dr. Garima Pulliam Glucose [Mass/Vol] 166 mg/dL Critically high 74-106 [facility] Comment on above: Performed By: #### B MP, CMADM ####[facility] Yyvioyjztc35[address] [place] [address]Dr. Garima Pulliam Potassium [Moles/Vol] 3.5 mmol/L Normal 3.5-5.1 [facility] Comment on above: Performed By: #### B MP, CMADM ####[facility] Rclicwythf0181 [place] [address]Dr. Garima Pulliam Sodium [Moles/Vol] 139 mmol/L Normal 136-145 [facility] Comment on above: Performed By: #### B DAVID, CMADM ####[facility] Ltuzsknpbc1922 [place] [address]Dr. Garima Heraclio Urea nitrogen [Mass/Vol] 9.0 mg/dL Normal 7.0-18.0 [facility] Comment on above: Performed By: #### B DAVID, NANCY ####[facility] Wjlrpphyla[address] [place], [place] [address]Dr. Garima Heraclio Urea nitrogen/Creatinine [Mass ratio] 15.0 mg/mg Normal [facility] Comment on above: Performed By: #### B DAVID, CMAANA ROSA ####[facility] Nyrbjslkoq[address] [place], [place] [address]Dr. Garima Pulliam XR CHEST 1 Von 12-10-2022 XR CHEST 1 V Normal [facility] BNPon 11-27-2022 Natriuretic peptide B (Bld) [Mass/Vol] 95.0 pg/mL Normal <=900.0 [facility] Comment on above: Performed By: #### C MP, HSTROPN, BNP ####[facility] Jcwufnytfw[address] [place], [place] [address]Dr. Garima Heraclio CBC AUTO DIFFon 11-27-2022 BASO # 0.0 103/ul Normal 0.0-0.1 [facility] Comment on above: Performed By: #### C BC ####[facility] Gaohzepfbl67[address] [place], [place] [address]Dr. Garima Heraclio Basophils/100 WBC (Bld) 0.2 % Normal 0.2-2.0 [facility] Comment on above: Performed By: #### C BC ####[facility] Tawcnwhkmg7227 [place] [id number]. Garima Pulliam EO # 0.2 103/ul Normal 0.0-0.7 [facility] Comment on above: Performed By: #### C BC ####[facility] Nmfiqvttti3058 [place] [id number]. Garima Pulliam Eosinophils/100 WBC (Bld) 2.0 % Normal 0.9-7.0 [facility] Comment on above: Performed By: #### C BC ####[facility] Ywhrfzpwbh726[address] [place], [place] [address]Dr. Garima Pulliam Erythrocyte distribution width (RBC) [Ratio] 13.2 % Normal 11.0-15.0 [facility] Comment on above: Performed By: #### C BC ####[facility] Kedzjuserc367[address] [place], [place] [address]Dr. Garima Pulliam Hematocrit (Bld) [Volume fraction] 42.4 % Normal 42.0-54.0 [facility] Comment on above: Performed By: #### C BC ####[facility] Lvokihpkqn09[address] [place], [place] [address]Dr. Garima Pulliam Hemoglobin (Bld) [Mass/Vol] 14.4 g/dL Normal 14.0-18.0 [facility] Comment on above: Performed By: #### C BC ####[facility] Jbtgfyvyka246[address] [place], [place] [address]Dr. Garima Pulliam IG # 0.04 10e3/ul Critically high 0.00-0.03 [facility] Comment on above: Performed By: #### C BC ####[facility] Srkinfuahz359[address] [place], [place] [address]Dr. Garima Pulliam IG % 0.4 % Normal 0.0-0.5 [facility] Comment on above: Performed By: #### C BC ####[facility] Gpxwicbfcw524[address] [place], [place] [address]Dr. Garima Pulliam LYMPH # 2.2 103/ul Normal 1.2-3.8 [facility] Comment on above: Performed By: #### C BC ####[facility] Eouqtomjzd6733 [place] [id number]. Garima Pulliam Lymphocytes/100 WBC (Bld) 21.5 % Normal 20.5-60.0 [facility] Comment on above: Performed By: #### C BC ####[facility] Cvwncgzfau3858 [place] [id number]. Garima Heraclio MANUAL DIFF REQ NO Normal [facility] Comment on above: Performed By: #### C BC ####[facility] Ymavzyloox5461 [place] [id number]. Garima Heraclio MCH (RBC) [Entitic mass] 30.4 pg Normal 25.9-34.0 [facility] Comment on above: Performed By: #### C BC ####[facility] Lcvrlyvydj9365 [place] [address]Dr. Garima Heraclio MCHC (RBC) [Mass/Vol] 34.0 g/dL Normal 29.9-35.2 [facility] Comment on above: Performed By: #### C BC ####[facility] Pfkrbisybn1560 [place] [id number]. Garima Pulliam MCV (RBC) [Entitic vol] 89.6 fL Normal 80.0-94.0 [facility] Comment on above: Performed By: #### C BC ####[facility] Rsecfiiclf2746 [place] [id number]. Garima Pulliam MONO # 0.8 103/ul Normal 0.3-0.8 [facility] Comment on above: Performed By: #### C BC ####[facility] Xxgrydeudn1587 [place] [id number]. Chapisrenu Pulliam Monocytes/100 WBC (Bld) 7.7 % Normal 1.7-12.0 [facility] Comment on above: Performed By: #### C BC ####[facility] Zmfqfwkgxp[address] [place], [place] [address]Dr. Garima Pulliam NEUT # 7.0 103/ul Critically high 1.4-6.5 [facility] Comment on above: Performed By: #### C BC ####[facility] Ritzzqrvwn2258 [place] [id number]. Garima Pulliam Neutrophils/100 WBC (Bld) 68.2 % Normal 43.0-75.0 [facility] Comment on above: Performed By: #### C BC ####[facility] Vbgreovenr3298 [place] [id number]. Chapisrenu Pulliam Platelet mean volume (Bld) [Entitic vol] 8.9 fL Critically low 9.5-13.5 [facility] Comment on above: Performed By: #### C BC ####[facility] Xxxjfjovxg6273 [place] [address]Dr. Garima Pulliam PLT 222 103/ul Normal 150-450 [facility] Comment on above: Performed By: #### C BC ####[facility] Gdxqqjjiye0367 [place] [address]Dr. Garima Pulliam RBC 4.73 106/ul Normal 4.70-6.10 [facility] Comment on above: Performed By: #### C BC ####[facility] Fneotmqpvt6423 [place] [address]Dr. Garima Pulliam WBC 10.3 103/ul Normal 4.0-11.0 [facility] Comment on above: Performed By: #### C BC ####[facility] Vekasjuqqo64[address] [place] [address]Dr. Garima Pulliam PROF 14(COMP METB)on 023 Albumin [Mass/Vol] 3.7 g/dL Normal 3.4-5.0 [facility] Comment on above: Performed By: #### C MP, HSTROPN, BNP ####[facility] Ejslenfapl9325 [place] [address]Dr. Chapisrenu Pulliam Albumin/Globulin [Mass ratio] 1.5 {ratio} Normal [facility] Comment on above: Performed By: #### C MP, HSTROPN, BNP ####[facility] Urmpvxmfie4043 [place] [address]Dr. Garima Pulliam ALP [Catalytic activity/Vol] 79 U/L Normal 46-116 [facility] Comment on above: Performed By: #### C MP, HSTROPN, BNP ####[facility] Crrusdpkfr1912 [place] [address]Dr. Garima Pulliam ALT [Catalytic activity/Vol] 32 U/L Normal 16-63 [facility] Comment on above: Performed By: #### C MP, HSTROPN, BNP ####[facility] Bwseyezazq9237 [place] [address]Dr. Garima Pulliam Anion gap [Moles/Vol] 9.5 mmol/L Normal [facility] Comment on above: Performed By: #### C MP, HSTROPN, BNP ####[facility] Ykjczonyro[address] [place], [place] [address]Dr. Garima Pulliam AST [Catalytic activity/Vol] 25 U/L Normal 15-37 [facility] Comment on above: Performed By: #### C MP, HSTROPN, BNP ####[facility] Vqepxrvhdk[address] [place], [place] [address]Dr. Chapislan Pulliam Bilirubin [Mass/Vol] 0.4 mg/dL Normal 0.2-1.0 [facility] Comment on above: Performed By: #### C MP, HSTROPN, BNP ####[facility] Vbovpfblby18[address] [place], [place] [address]Dr. Garima Pulliam Calcium [Mass/Vol] 8.9 mg/dL Normal 8.5-10.1 [facility] Comment on above: Performed By: #### C MP, HSTROPN, BNP ####[facility] Txrcvlwenl46[address] [place], [place] [address]Dr. Chapislan Pulliam Chloride [Moles/Vol] 103 mmol/L Normal 98-107 [facility] Comment on above: Performed By: #### C MP, HSTROPN, BNP ####[facility] Sjzbfdxgvu[address] [place], [place] [address]Dr. Yilan Pulliam CO2 [Moles/Vol] 28.6 mmol/L Normal 21.0-32.0 [facility] Comment on above: Performed By: #### C MP, HSTROPN, BNP ####[facility] Jlntoozxzc2300 [place] [address]Dr. Garima Pulliam Creatinine [Mass/Vol] 0.72 mg/dL Normal 0.70-1.30 [facility] Comment on above: Performed By: #### C MP, HSTROPN, BNP ####[facility] Uhzeycobjs6165 [place] [address]Dr. Garima Pulliam EGFR-AF MOSOTHO >60 Normal >=60 [facility] Comment on above: Performed By: #### C MP, HSTROPN, BNP ####[facility] Kuegspekdr1703 [place] [address]Dr. Garima Pulliam EGFR-NON AF MOSOTHO >60 Normal >=60 [facility] Comment on above: Performed By: #### C MP, HSTROPN, BNP ####[facility] Xxmvfhihgc7364 [place] [address]Dr. Garima Pulliam Globulin (S) [Mass/Vol] 2.5 g/dL Normal [facility] Comment on above: Performed By: #### C MP, HSTROPN, BNP ####[facility] Usptwnrobz82[address] [place], [place] [address]Dr. Garima Pulliam Glucose [Mass/Vol] 114 mg/dL Critically high 74-106 [facility] Comment on above: Performed By: #### C MP, HSTROPN, BNP ####[facility] Cizvzffamr[address] [place], [place] [address]Dr. Garima Pulliam Potassium [Moles/Vol] 4.1 mmol/L Normal 3.5-5.1 [facility] Comment on above: Performed By: #### C MP, HSTROPN, BNP ####[facility] Fiwgykolut[address] [place], [place] [address]Dr. Garima Pulliam Protein [Mass/Vol] 6.2 g/dL Critically low 6.4-8.2 [facility] Comment on above: Performed By: #### C MP, HSTROPN, BNP ####[facility] Evovpeksjk90[address] [place], [place] [address]Dr. Yilan Pulliam Sodium [Moles/Vol] 137 mmol/L Normal 136-145 [facility] Comment on above: Performed By: #### C MP, HSTROPN, BNP ####[facility] Ddlqosajbo5446 [place] [address]Dr. Garima Pulliam Urea nitrogen [Mass/Vol] 13.0 mg/dL Normal 7.0-18.0 [facility] Comment on above: Performed By: #### C MP, HSTROPN, BNP ####[facility] Isiinqldgk7205 [place] [address]Dr. Garima Pulliam Urea nitrogen/Creatinine [Mass ratio] 18.1 mg/mg Normal [facility] Comment on above: Performed By: #### C MP, HSTROPN, BNP ####[facility] Igczctyove12[address] [place], [place] [address]Dr. Garima Pulliam TROPONIN, HIGH SENSITIVITYon 11-27-2022 HSTROP 11.8 pg/mL Normal 4.0-76.1 [facility] Comment on above: Result Comment: CUT- OFF POINTS HAVE BEEN ESTABLISHED BASED ON THE FOURTH UNIVERSAL DEFINITIONS OF MYOCARDIALINFARCTION. THE UPPER REFERENCE LIMIT (URL) OF TROPONIN, DEFINED THE 99TH PERCENTILE OFcTnI DISTRIBUTION IN A REFERENCE POPULATION, HAS BEEN CONFIRMED THE DECISION THRESHOLDFOR CT DIAGNOSIS. Performed By: #### C MP, HSTROPN, BNP ####[facility] Rajlzbgqbp[address] [place], [place] [address]Dr. Garima Pulliam XR CHEST 1 Von 11-27-2022 XR CHEST 1 V Normal [facility] BNPon 11-20-2022 Natriuretic peptide B (Bld) [Mass/Vol] 73.0 pg/mL Normal <=900.0 [facility] Comment on above: Performed By: #### B MP, HSTROPN, BNP ####[facility] Rtmfpgnrug[address] [place], [place] [address]Dr. Garima Pulliam CBC AUTO DIFFon 11-20-2022 BASO # 0.0 103/ul Normal 0.0-0.1 [facility] Comment on above: Performed By: #### C BC ####[facility] Wkxerxqpgb8048 [place] [id number]. Garima Pulliam Basophils/100 WBC (Bld) 0.3 % Normal 0.2-2.0 [facility] Comment on above: Performed By: #### C BC ####[facility] Chaiirendv4593 [place] [id number]. Garima Pulliam EO # 0.2 103/ul Normal 0.0-0.7 [facility] Comment on above: Performed By: #### C BC ####[facility] Oypkvkmskt1051 [place] [address]Dr. Garima Pulliam Eosinophils/100 WBC (Bld) 2.1 % Normal 0.9-7.0 [facility] Comment on above: Performed By: #### C BC ####[facility] Qzrbdruhlk[address] [place], [place] [address]Dr. Garima Pulliam Erythrocyte distribution width (RBC) [Ratio] 13.2 % Normal 11.0-15.0 [facility] Comment on above: Performed By: #### C BC ####[facility] Yvvdmkfuuk[address] [place], [place] [address]Dr. Garima Pulliam Hematocrit (Bld) [Volume fraction] 43.4 % Normal 42.0-54.0 [facility] Comment on above: Performed By: #### C BC ####[facility] [address] [place], [place] [address]Dr. Garima Pulliam Hemoglobin (Bld) [Mass/Vol] 14.6 g/dL Normal 14.0-18.0 [facility] Comment on above: Performed By: #### C BC ####[facility] Eplfiazqft2918 [place] [id number]. Garima Pulliam IG # 0.02 10e3/ul Normal 0.00-0.03 [facility] Comment on above: Performed By: #### C BC ####[facility] Zrwprfrtgq8489 [place] [address]Dr. Garima Pulliam IG % 0.2 % Normal 0.0-0.5 [facility] Comment on above: Performed By: #### C BC ####[facility] Qnvzswizjx1028 [place] [id number]. Garima Heraclio LYMPH # 2.1 103/ul Normal 1.2-3.8 [facility] Comment on above: Performed By: #### C BC ####[facility] Jgxypqfznz1242 [place] [id number]. Garima Heraclio Lymphocytes/100 WBC (Bld) 19.2 % Critically low 20.5-60.0 [facility] Comment on above: Performed By: #### C BC ####[facility] Jweienjblb0049 [place] [id number]. Chapisrenu Pulliam MANUAL DIFF REQ NO Normal [facility] Comment on above: Performed By: #### C BC ####[facility] Djzokqapbb8831 [place] [id number]. Garima Heraclio MCH (RBC) [Entitic mass] 30.4 pg Normal 25.9-34.0 [facility] Comment on above: Performed By: #### C BC ####[facility] Nzvcprodzt1726 [place] [address]Dr. Garima Pulliam MCHC (RBC) [Mass/Vol] 33.6 g/dL Normal 29.9-35.2 [facility] Comment on above: Performed By: #### C BC ####[facility] Ttwgpvetfs9223 [place] [id number]. Garima Heraclio MCV (RBC) [Entitic vol] 90.4 fL Normal 80.0-94.0 [facility] Comment on above: Performed By: #### C BC ####[facility] Hoyhiadhkh7543 [place] [id number]. Garima Heraclio MONO # 0.6 103/ul Normal 0.3-0.8 [facility] Comment on above: Performed By: #### C BC ####[facility] Ynxhtlrqyt9757 [place] [address]Dr. Garima Heraclio Monocytes/100 WBC (Bld) 5.8 % Normal 1.7-12.0 [facility] Comment on above: Performed By: #### C BC ####[facility] Tzzdqwuvyl7264 [place], [place] [address]Uu. Garima Pulliam NEUT # 7.8 103/ul Critically high 1.4-6.5 [facility] Comment on above: Performed By: #### C BC ####[facility] Fwkapabtdz6424 [place] [id number]. Garima Pulliam Neutrophils/100 WBC (Bld) 72.4 % Normal 43.0-75.0 [facility] Comment on above: Performed By: #### C BC ####[facility] Sadtixfrdd8362 [place] [id number]. Garima Pulliam Platelet mean volume (Bld) [Entitic vol] 8.7 fL Critically low 9.5-13.5 [facility] Comment on above: Performed By: #### C BC ####[facility] Kqpqakrbxa2579 [place] [id number]. Garima Pulliam PLT 184 103/ul Normal 150-450 [facility] Comment on above: Performed By: #### C BC ####[facility] Ywwovmjwtf9144 [place], [place] [address]Ay. Garima Pulliam RBC 4.80 106/ul Normal 4.70-6.10 [facility] Comment on above: Performed By: #### C BC ####[facility] Mpcuftbqfx1095 [place] [id number]. Garima Pulliam WBC 10.8 103/ul Normal 4.0-11.0 [facility] Comment on above: Performed By: #### C BC ####[facility] Dayluhiugf8287 [place] [id number]. Garima Pulliam [facility]24 SARS-CoV-2 (COVID-19) RNA MARIE+probe Ql (Unsp spec) Not detected Normal NOT DETECTED [facility] Comment on above: Result Comment: [...] for this test is supported by the [place] of Health and Human Service's declaration that [...] used). Performed By: #### C VDTBH ####[facility] Rtfbwyxcod125[address] [place], [place] [address]Dr. Garima Pulliam INFLUENZA A AND B AGon 11-20 [facility] BELOW Normal [facility] Comment on above: Result Comment: Nega tive for Flu A protein angiten. Infection due to Flu A cannot be ruled out. Flu A angiten in the sample may be below the detection limit of the test. Performed By: #### I NFLUAB ####[facility] Mluvqsmvmh[address] [place], [place] [address]Dr. Garima Pulliam INFLUBNEGH SEE BELOW Normal [facility] Comment on above: Result Comment: Nega tive for Flu B protein antigen. Infection due to Flu B cannot be ruled out. Flu B antigen in the sample may be below the detection limit of the test. Performed By: #### I NFLUAB ####[facility] Bddvdygunv69[address] [place], [place] [address]Dr. Garima Pulliam INFLUENZA A AG Negative Normal NEGATIVE SEE COMMENT [facility] Comment on above: Performed By: #### I NFLUAB ####[facility] Dxeaoeypbs[address] [place], [place] [address]Dr. Garima [facility] INFLUENZA B AG Negative Normal NEGATIVE SEE COMMENT [facility] Comment on above: Performed By: #### I NFLUAB ####[facility] Lxzdnceunz5[address] [place], [place] [address]Dr. Garima Pulliam PROF CHEM 8 (BAS METB)on Anion gap [Moles/Vol] 8.2 mmol/L Normal [facility] Comment on above: Performed By: #### B MP, HSTROPN, BNP ####[facility] Jbvzsltdnq3643 [place] [address]Dr. Garima Pulliam Calcium [Mass/Vol] 8.7 mg/dL Normal 8.5-10.1 [facility] Comment on above: Performed By: #### B MP, HSTROPN, BNP ####[facility] Hqeleutavy2900 [place] [address]Dr. Garima Pulliam Chloride [Moles/Vol] 103 mmol/L Normal 98-107 [facility] Comment on above: Performed By: #### B MP, HSTROPN, BNP ####[facility] Dnwalyyeqm8[address] [place], [place] [address]Dr. Garima Pulliam CO2 [Moles/Vol] 29.4 mmol/L Normal 21.0-32.0 [facility] Comment on above: Performed By: #### B MP, HSTROPN, BNP ####[facility] Kgybwlzyjh[address] [place], [place] [address]Dr. Garima Pulliam Creatinine [Mass/Vol] 0.69 mg/dL Critically low 0.70-1.30 [facility] Comment on above: Performed By: #### B MP, HSTROPN, BNP ####[facility] Bldxsyrejv6030 [place] [address]Dr. Garima Pulliam EGFR-AF MOSOTHO >60 Normal >=60 [facility] Comment on above: Performed By: #### B MP, HSTROPN, BNP ####[facility] Zdazsmsxur[address] [place], [place] [address]Dr. Garima Pulliam EGFR-NON AF MOSOTHO >60 Normal >=60 [facility] Comment on above: Performed By: #### B MP, HSTROPN, BNP ####[facility] Ulglmscvpf7433 [place] [address]Dr. Garima Pulliam Glucose [Mass/Vol] 209 mg/dL Critically high 74-106 T [facility] Comment on above: Performed By: #### B MP, HSTROPN, BNP ####[facility] Zrgtimxnka5134 [place] [address]Dr. Garima Pulliam Potassium [Moles/Vol] 3.6 mmol/L Normal 3.5-5.1 [facility] Comment on above: Performed By: #### B MP, HSTROPN, BNP ####[facility] Wfjhdywjfn3290 [place] [address]Dr. Garima Pulliam Sodium [Moles/Vol] 137 mmol/L Normal 136-145 [facility] Comment on above: Performed By: #### B MP, HSTROPN, BNP ####[facility] Ytznqeuwln4428 [place] [address]Dr. Garima Pulliam Urea nitrogen [Mass/Vol] 11.0 mg/dL Normal 7.0-18.0 [facility] Comment on above: Performed By: #### B MP, HSTROPN, BNP ####[facility] Mjvxvktahq8880 [place] [address]Dr. Garima Pulliam Urea nitrogen/Creatinine [Mass ratio] 15.9 mg/mg Normal [facility] Comment on above: Performed By: #### B MP, HSTROPN, BNP ####[facility] Gpgkhsqedo6105 [place] [address]Dr. Garima Pulliam TROPONIN, HIGH SENSITIVITYon 11-20-2022 HSTROP 8.7 pg/mL Normal 4.0-76.1 [facility] Comment on above: Result Comment: CUT- OFF POINTS HAVE BEEN ESTABLISHED BASED ON THE FOURTH UNIVERSAL DEFINITIONS OF MYOCARDIALINFARCTION. THE UPPER REFERENCE LIMIT (URL) OF TROPONIN, DEFINED THE 99TH PERCENTILE OFcTnI DISTRIBUTION IN A REFERENCE POPULATION, HAS BEEN CONFIRMED THE DECISION THRESHOLDFOR CT DIAGNOSIS. Performed By: #### B MP, HSTROPN, BNP ####[facility] [address]ogjslppwn7[address] [place] [address]Dr. Garima Pulliam XR CHEST 1 Von 11-20-2022 XR CHEST 1 V Normal [facility] XR CHEST 1 Von 10-02-2022 XR CHEST 1 V Normal [facility] BNPon 09-29-2022 Natriuretic peptide B (Bld) [Mass/Vol] 107.0 pg/mL Normal <=900.0 [facility] Comment on above: Performed By: #### C MP, BNP, CMADM ####[facility] Lvksqncida[address] [place] [address]Dr. Garima Pulliam CARDIAC NASH ADMITon 022 CK [Catalytic activity/Vol] 190 U/L Normal 39-308 [facility] Comment on above: Performed By: #### C MP, BNP, CMADM ####[facility] Xvwlouepkr[address] [place] [address]Dr. Garima Heraclio CK.MB [Mass/Vol] 11.11 ng/mL Critically high <=3.60 [facility] Comment on above: Performed By: #### C MP, BNP, CMADM ####[facility] Geqgletdbf46[address] [place] [address]Dr. Garima Pluliam HSTROP 11.8 pg/mL Normal 4.0-76.1 [facility] Comment on above: Result Comment: CUT- OFF POINTS HAVE BEEN ESTABLISHED BASED ON THE FOURTH UNIVERSAL DEFINITIONS OF MYOCARDIALINFARCTION. THE UPPER REFERENCE LIMIT (URL) OF TROPONIN, DEFINED THE 99TH PERCENTILE OFcTnI DISTRIBUTION IN A REFERENCE POPULATION, HAS BEEN CONFIRMED THE DECISION THRESHOLDFOR CT DIAGNOSIS. Performed By: #### C MP, BNP, CMADM ####[facility] Xgahnaglfn[address] [place] [address]Dr. Garima Pulliam DORIS 133 ng/mL Critically high 16-96 [facility] Comment on above: Performed By: #### C MP, BNP, CMADM ####[facility] Zcztxwkjld60[address] [place] [address]Dr. Garima Heraclio CBC AUTO DIFFon 09-29-2022 BASO # 0.0 103/ul Normal 0.0-0.1 [facility] Comment on above: Performed By: #### C BC ####[facility] Fnvjxsfukm7[address] [place] [address]Dr. Garima Heraclio Basophils/100 WBC (Bld) 0.2 % Normal 0.2-2.0 [facility] Comment on above: Performed By: #### C BC ####[facility] Bigagzjrdx87[address] [place] [id number]. Garima Pulliam EO # 0.1 103/ul Normal 0.0-0.7 [facility] Comment on above: Performed By: #### C BC ####[facility] Pksswxhwgp9026 [place] [id number]. Garima Pulliam Eosinophils/100 WBC (Bld) 1.4 % Normal 0.9-7.0 [facility] Comment on above: Performed By: #### C BC ####[facility] [address]zjeqvksx[address] [place], [place] [address]Dr. Garima Pulliam Erythrocyte distribution width (RBC) [Ratio] 13.7 % Normal 11.0-15.0 [facility] Comment on above: Performed By: #### C BC ####[facility] Ugszlblhqy[address] [place], [place] [address]Dr. Garima Pulliam Hematocrit (Bld) [Volume fraction] 45.4 % Normal 42.0-54.0 [facility] Comment on above: Performed By: #### C BC ####[facility] Mhursuyxme9[address] [place], [place] [address]Dr. Garima Pulliam Hemoglobin (Bld) [Mass/Vol] 14.8 g/dL Normal 14.0-18.0 [facility] Comment on above: Performed By: #### C BC ####[facility] Ydvahvrmgp[address] [place], [place] [address]Dr. Garima Pulliam IG # 0.04 10e3/ul Critically high 0.00-0.03 [facility] Comment on above: Performed By: #### C BC ####[facility] Ojcrozlaes[address] [place], [place] [address]Dr. Garima Pulliam IG % 0.5 % Normal 0.0-0.5 [facility] Comment on above: Performed By: #### C BC ####[facility] Gqvonqcrpi18[address] [place], [place] [address]Dr. Garima Pulliam LYMPH # 1.1 103/ul Critically low 1.2-3.8 [facility] Comment on above: Performed By: #### C BC ####[facility] Qzzxkocafo0733 [place] [id number]. Garima Pulliam Lymphocytes/100 WBC (Bld) 12.7 % Critically low 20.5-60.0 [facility] Comment on above: Performed By: #### C BC ####[facility] Iaorqibkfp0929 [place] [id number]. Chapisrenu Pulliam MANUAL DIFF REQ NO Normal [facility] Comment on above: Performed By: #### C BC ####[facility] Radwrxojrl[address] [place], [place] [address]Dr. Garima Heraclio MCH (RBC) [Entitic mass] 30.0 pg Normal 25.9-34.0 [facility] Comment on above: Performed By: #### C BC ####[facility] Widbvevaoy39[address] [place], [place] [address]Dr. Garima Heraclio MCHC (RBC) [Mass/Vol] 32.6 g/dL Normal 29.9-35.2 [facility] Comment on above: Performed By: #### C BC ####[facility] Mgvbarujig[address] [place], [place] [address]Dr. Garima Heraclio MCV (RBC) [Entitic vol] 91.9 fL Normal 80.0-94.0 [facility] Comment on above: Performed By: #### C BC ####[facility] Vjpgffyrvh[address] [place], [place] [address]Dr. Garima Pulliam MONO # 0.4 103/ul Normal 0.3-0.8 [facility] Comment on above: Performed By: #### C BC ####[facility] Njymgjbwvc[address] [place], [place] [address]Dr. Chapisrenu Pulliam Monocytes/100 WBC (Bld) 4.8 % Normal 1.7-12.0 [facility] Comment on above: Performed By: #### C BC ####[facility] Isvumqhxjp[address] [place], [place] [address]Dr. Garima Pulliam NEUT # 7.1 103/ul Critically high 1.4-6.5 [facility] Comment on above: Performed By: #### C BC ####[facility] Vgktbnbxab9178 [place], [place] [address]Ie. Garima Pulliam Neutrophils/100 WBC (Bld) 80.4 % Critically high 43.0-75.0 [facility] Comment on above: Performed By: #### C BC ####[facility] Gfunfgzdig3423 [place] [id number]. Garima Pulliam Platelet mean volume (Bld) [Entitic vol] 9.1 fL Critically low 9.5-13.5 [facility] Comment on above: Performed By: #### C BC ####[facility] Hgjwohobsa0841 [place] [id number]. Garima Pulliam PLT 200 103/ul Normal 150-450 [facility] Comment on above: Performed By: #### C BC ####[facility] Nbrduczufm[address] [place] [id number]. Garima Pulliam RBC 4.94 106/ul Normal 4.70-6.10 [facility] Comment on above: Performed By: #### C BC ####[facility] Nvsnczepgf4677 [place] [id number]. Garima Pulliam WBC 8.9 103/ul Normal 4.0-11.0 [facility] Comment on above: Performed By: #### C BC ####[facility] Ognucqaogj1802 [place] [id number]. Garima Pulliam Covid-19 PCR (CVDTB)on SARS-CoV-2 (COVID-19) RNA MARIE+probe Ql (Unsp spec) Not detected Normal NOT DETECTED [facility] Comment on above: Result Comment: [...] for this test is supported by the [place] of Health and Human Service's declaration that [...] used). Performed By: #### C VDTBH ####[facility] Virhiodgcb97[address] [place] [address]Dr. Garima Pulliam LACTATE/LACTIC ACIDon 2021 Lactate [Moles/Vol] 1.7 mmol/L Normal 0.4-1.9 [facility] Comment on above: Performed By: #### L ACT ####[facility] Rpwprumyjn[address] [place], [place] [address]Dr. Garima Pulliam PROF 14(COMP METB)on 022 Albumin [Mass/Vol] 3.8 g/dL Normal 3.4-5.0 [facility] Comment on above: Performed By: #### C MP, BNP, CMADM ####[facility] Hrswcbjoky63[address] [place], [place] [address]Dr. Garima Pulliam Albumin/Globulin [Mass ratio] 1.5 {ratio} Normal [facility] Comment on above: Performed By: #### C MP, BNP, CMADM ####[facility] Fmxzexsvdq3021 [place] [address]Dr. Garima Pulliam ALP [Catalytic activity/Vol] 62 U/L Normal 46-116 [facility] Comment on above: Performed By: #### C MP, BNP, CMADM ####[facility] Jlmlrenxkk0840 [place] [address]Dr. Garima Pulliam ALT [Catalytic activity/Vol] 37 U/L Normal 16-63 [facility] Comment on above: Performed By: #### C MP, BNP, CMADM ####[facility] Xvclcowjjo5727 [place] [address]Dr. Garima Pulliam Anion gap [Moles/Vol] 8.0 mmol/L Normal [facility] Comment on above: Performed By: #### C MP, BNP, CMADM ####[facility] Gkkjxpcjpn2578 [place] [address]Dr. Garima Pulliam AST [Catalytic activity/Vol] 20 U/L Normal 15-37 [facility] Comment on above: Performed By: #### C MP, BNP, CMADM ####[facility] Kcvzfflakg6915 [place] [address]Dr. Graima Pulliam Bilirubin [Mass/Vol] 0.6 mg/dL Normal 0.2-1.0 [facility] Comment on above: Performed By: #### C MP, BNP, CMADM ####[facility] Khucvnaypu4845 [place] [address]Dr. Garima Pulliam Calcium [Mass/Vol] 9.1 mg/dL Normal 8.5-10.1 [facility] Comment on above: Performed By: #### C MP, BNP, CMADM ####[facility] Jwsxcdwofx39[address] [place], [place] [address]Dr. Garima Pulliam Chloride [Moles/Vol] 103 mmol/L Normal 98-107 [facility] Comment on above: Performed By: #### C MP, BNP, CMADM ####[facility] Hsrgijnymv[address] [place], [place] [address]Dr. Garima Pulliam CO2 [Moles/Vol] 31.8 mmol/L Normal 21.0-32.0 [facility] Comment on above: Performed By: #### C MP, BNP, CMADM ####[facility] Pklmlsitad[address] [place], [place] [address]Dr. Garima Pulliam Creatinine [Mass/Vol] 0.63 mg/dL Critically low 0.70-1.30 [facility] Comment on above: Performed By: #### C MP, BNP, CMADM ####[facility] Jhaqfqajio84[address] [place], [place] [address]Dr. Garima Pulliam EGFR-AF MOSOTHO >60 Normal >=60 [facility] Comment on above: Performed By: #### C MP, BNP, CMADM ####[facility] Oynwyuznaf024[address] [place], [place] [address]Dr. Garima Pulliam EGFR-NON AF MOSOTHO >60 Normal >=60 [facility] Comment on above: Performed By: #### C MP, BNP, CMADM ####[facility] Tdlpmouxuw3221 [place] [address]Dr. Garima Pulliam Globulin (S) [Mass/Vol] 2.6 g/dL Normal [facility] Comment on above: Performed By: #### C MP, BNP, CMADM ####[facility] Cetkopxvgf216[address] [place] [address]Dr. Garima Pulliam Glucose [Mass/Vol] 103 mg/dL Normal 74-106 [facility] Comment on above: Performed By: #### C MP, BNP, CMADM ####[facility] Hkndxinpus2221 [place] [address]Dr. Garima Pulliam Potassium [Moles/Vol] 3.8 mmol/L Normal 3.5-5.1 [facility] Comment on above: Performed By: #### C MP, BNP, CMADM ####[facility] Egwtwvupfu1046 [place] [address]Dr. Garima Pulliam Protein [Mass/Vol] 6.4 g/dL Normal 6.4-8.2 [facility] Comment on above: Performed By: #### C MP, BNP, CMADM ####[facility] Qerodpqypg9237 [place] [address]Dr. Garima Pulliam Sodium [Moles/Vol] 139 mmol/L Normal 136-145 [facility] Comment on above: Performed By: #### C MP, BNP, CMADM ####[facility] Iinpwiirvl4405 [place] [address]Dr. Garima Pulliam Urea nitrogen [Mass/Vol] 7.0 mg/dL Normal 7.0-18.0 [facility] Comment on above: Performed By: #### C MP, BNP, CMADM ####[facility] Pwrvxmhxxw6117 [place] [address]Dr. Garima Pulliam Urea nitrogen/Creatinine [Mass ratio] 11.1 mg/mg Normal [facility] Comment on above: Performed By: #### C MP, BNP, CMADM ####[facility] Bxlyvvfcpa9344 [place] [address]Dr. Garima Pulliam PROTIMEon 09-29-2022 INR Coag (PPP) [Relative time] 1.14 {INR} Normal [facility] Comment on above: Performed By: #### P T, PTT ####[facility] Xwfnnnbcnt[address] [place], [place] [address]Dr. Garima Pulliam INR GUIDELINES SEE BELOW Normal [facility] Comment on above: Result Comment: WESLEY RED INR: 2.0 - 3.0 CONDITIONS NOT LISTED BELOW 2.5 - 3.5 FOR PROSTHETIC HEART VALVE REPLACEMENT 2.5 - 3.5 RECURRENT THROMBOSIS Performed By: #### P T, PTT ####[facility] Ldbdekmsqg06[address] [place], [place] [address]Dr. Garima Pulliam PT Coag (PPP) [Time] 12.2 s Critically high 9.0-11.6 [facility] Comment on above: Performed By: #### P T, PTT ####[facility] Oooqsupstw[address] [place], [place] [address]Dr. Garima Pulliam PTTon 09-29-2022 aPTT Coag (Bld) [Time] 29.3 s Normal 22.3-36.2 [facility] Comment on above: Performed By: #### P T, PTT ####[facility] Potppegohc[address] [place], [place] [address]Dr. Garima Pulliam XR CHEST 1 Von 09-29-2022 XR CHEST 1 V Normal [facility] CBC AUTO DIFFon 09-26-2022 BASO # 0.0 103/ul Normal 0.0-0.1 [facility] Comment on above: Performed By: #### C BC ####[facility] Ewzewibppm0499[address] [place], [place] [address]Dr. Garima Pulliam Basophils/100 WBC (Bld) 0.2 % Normal 0.2-2.0 [facility] Comment on above: Performed By: #### C BC ####[facility] Egqgnktwqd7313[address] [place], [place] [address]Dr. Garima Pulliam EO # 0.1 103/ul Normal 0.0-0.7 [facility] Comment on above: Performed By: #### C BC ####[facility] Ipsalzsfgy1426[address] [place], [place] [address]Dr. Garima Pulliam Eosinophils/100 WBC (Bld) 1.0 % Normal 0.9-7.0 [facility] Comment on above: Performed By: #### C BC ####[facility] Vemkulahte70[address] [place], [place] [address]Dr. Garima Pulliam Erythrocyte distribution width (RBC) [Ratio] 13.4 % Normal 11.0-15.0 [facility] Comment on above: Performed By: #### C BC ####[facility] Vvgoleqeom[address] [place], [place] [address]Dr. Garima Pulliam Hematocrit (Bld) [Volume fraction] 46.3 % Normal 42.0-54.0 [facility] Comment on above: Performed By: #### C BC ####[facility] Mxllwezira474[address] [place], [place] [address]Dr. Garima Pulliam Hemoglobin (Bld) [Mass/Vol] 15.3 g/dL Normal 14.0-18.0 [facility] Comment on above: Performed By: #### C BC ####[facility] Hpzfifvllx0101[address] [place], [place] [address]Dr. Garima Pulliam IG # 0.05 10e3/ul Critically high 0.00-0.03 [facility] Comment on above: Performed By: #### C BC ####[facility] Dljmursbbz087[address] [place], [place] [address]Dr. Garima Pulliam IG % 0.4 % Normal 0.0-0.5 [facility] Comment on above: Performed By: #### C BC ####[facility] Trpyppnwqu480[address] [place], [place] [address]Dr. Garima Pulliam LYMPH # 1.7 103/ul Normal 1.2-3.8 [facility] Comment on above: Performed By: #### C BC ####[facility] Ulotvygdsz1264[address] [place], [place] [address]Dr. Garima Pulliam Lymphocytes/100 WBC (Bld) 12.7 % Critically low 20.5-60.0 [facility] Comment on above: Performed By: #### C BC ####[facility] Pyaawdoljo7374 [place] [address]DrAdalberto Pulliam MANUAL DIFF REQ NO Normal [facility] Comment on above: Performed By: #### C BC ####[facility] Bsvjycfjzq7845 [place] [address]Dr. Garima Pulliam MCH (RBC) [Entitic mass] 30.1 pg Normal 25.9-34.0 [facility] Comment on above: Performed By: #### C BC ####[facility] Xtqzcifily701[address] [place], [place] [address]Dr. Garima Pulliam MCHC (RBC) [Mass/Vol] 33.0 g/dL Normal 29.9-35.2 [facility] Comment on above: Performed By: #### C BC ####[facility] Preexeusmi47[address] [place], [place] [address]DrAdalberto Pulliam MCV (RBC) [Entitic vol] 91.1 fL Normal 80.0-94.0 [facility] Comment on above: Performed By: #### C BC ####[facility] Uqducctdcs7[address] [place], [place] [address]DrAdalberto Pulliam MONO # 0.9 103/ul Critically high 0.3-0.8 [facility] Comment on above: Performed By: #### C BC ####[facility] Kyxuvchrwy70[address] [place], [place] [address]DrAdalberto Pulliam Monocytes/100 WBC (Bld) 7.0 % Normal 1.7-12.0 [facility] Comment on above: Performed By: #### C BC ####[facility] Jovbytbgzi997[address] [place], [place] [address]DrAdalberto Pulliam NEUT # 10.4 103/ul Critically high 1.4-6.5 [facility] Comment on above: Performed By: #### C BC ####[facility] Ivpuctkhvt758[address] [place], [place] [address]DrAdalberto Pulliam Neutrophils/100 WBC (Bld) 78.7 % Critically high 43.0-75.0 [facility] Comment on above: Performed By: #### C BC ####[facility] Oinmcriorq1123 [place] [address]Dr. Garima Pulliam Platelet mean volume (Bld) [Entitic vol] 8.9 fL Critically low 9.5-13.5 [facility] Comment on above: Performed By: #### C BC ####[facility] Aexalqktnf3540 [place] [address]Dr. Garima Pulliam PLT 195 103/ul Normal 150-450 [facility] Comment on above: Performed By: #### C BC ####[facility] Kmtwdxovpc025[address] [place], [place] [address]Dr. Garima Pulliam RBC 5.08 106/ul Normal 4.70-6.10 [facility] Comment on above: Performed By: #### C BC ####[facility] Zehyfunhzd[address] [place], [place] [address]Dr. Garima Pulliam WBC 13.2 103/ul Critically high 4.0-11.0 [facility] Comment on above: Performed By: #### C BC ####[facility] Uwemfvqcuk[address] [place], [place] [address]Dr. Garima Pulliam PROF 14(COMP METB)on 022 Albumin [Mass/Vol] 3.5 g/dL Normal 3.4-5.0 [facility] Comment on above: Performed By: #### C DAVID HSTROPN ####[facility] Gmiaunmnas66[address] [place] [address]Dr. Garima Pulliam Albumin/Globulin [Mass ratio] 1.2 {ratio} Normal [facility] Comment on above: Performed By: #### C RAFAT HERNANDEZTROPN ####[facility] Gkpkxnqacz6816 [place] [address]Dr. Garima Pulliam ALP [Catalytic activity/Vol] 71 U/L Normal 46-116 [facility] Comment on above: Performed By: #### C DAVID HSTROPN ####[facility] Flvqvnxijh1221 [place] [address]Dr. Garima Pulliam ALT [Catalytic activity/Vol] 37 U/L Normal 16-63 [facility] Comment on above: Performed By: #### C DAVID, HSTROPN ####[facility] Wfcoyyjtze3200 [place] [address]Dr. Garima Pulliam Anion gap [Moles/Vol] 4.8 mmol/L Normal [facility] Comment on above: Performed By: #### C DAVID, HSTROPN ####[facility] Xsrhcslnqx[address] [place], [place] [address]Dr. Garima Pulliam AST [Catalytic activity/Vol] 21 U/L Normal 15-37 [facility] Comment on above: Performed By: #### C DAVID, HSTROPN ####[facility] Qweennpeib[address] [place], [place] [address]Dr. Garima Pulliam Bilirubin [Mass/Vol] 0.3 mg/dL Normal 0.2-1.0 [facility] Comment on above: Performed By: #### C DAVID, HSTROPN ####[facility] Waffdylyky7[address] [place] [address]Dr. Garima Pulliam Calcium [Mass/Vol] 8.9 mg/dL Normal 8.5-10.1 [facility] Comment on above: Performed By: #### C DAVID, HSTROPN ####[facility] Iajnlhtsdk1424 [place] [address]Dr. Garima Pulliam Chloride [Moles/Vol] 106 mmol/L Normal 98-107 [facility] Comment on above: Performed By: #### C DAVID, HSTROPN ####[facility] Tmqeosekns3139 [place] [address]Dr. Garima Pulliam CO2 [Moles/Vol] 29.8 mmol/L Normal 21.0-32.0 [facility] Comment on above: Performed By: #### C DAVID, HSTROPN ####[facility] Tdydmjckfe78[address] [place] [address]Dr. Garima Pulliam Creatinine [Mass/Vol] 0.68 mg/dL Critically low 0.70-1.30 [facility] Comment on above: Performed By: #### C MP, HSTROPN ####[facility] Ltihdzwmsm9046 [place] [address]Dr. Garima Pulliam EGFR-AF MOSOTHO >60 Normal >=60 [facility] Comment on above: Performed By: #### C MP, HSTROPN ####[facility] Hsqqrbubwo1046 [place] [address]Dr. Chapislan Pulliam EGFR-NON AF MOSOTHO >60 Normal >=60 [facility] Comment on above: Performed By: #### C MP, HSTROPN ####[facility] Znpybtkujl7253 [place] [address]Dr. Garima Pulliam Globulin (S) [Mass/Vol] 2.8 g/dL Normal [facility] Comment on above: Performed By: #### C MP, HSTROPN ####[facility] Zqhwtpjmxq3538 [place] [address]Dr. Garima Pulliam Glucose [Mass/Vol] 133 mg/dL Critically high 74-106 [facility] Comment on above: Performed By: #### C MP, HSTROPN ####[facility] Cykazhrwhp7083 [place] [address]Dr. Chapisrenu Pulliam Potassium [Moles/Vol] 3.6 mmol/L Normal 3.5-5.1 [facility] Comment on above: Performed By: #### C MP, HSTROPN ####[facility] Mvhzchipic3834 [place] [address]Dr. Chapisrenu Pulliam Protein [Mass/Vol] 6.3 g/dL Critically low 6.4-8.2 [facility] Comment on above: Performed By: #### C MP, HSTROPN ####[facility] Babdemdncc87[address] [place], [place] [address]Dr. Chapisrenu Pulliam Sodium [Moles/Vol] 137 mmol/L Normal 136-145 [facility] Comment on above: Performed By: #### C MP, HSTROPN ####[facility] Xazyoxrase33[address] [place], [place] [address]Dr. Garima Pulliam Urea nitrogen [Mass/Vol] 15.0 mg/dL Normal 7.0-18.0 [facility] Comment on above: Performed By: #### C DAVID HSTROPN ####[facility] Awibyzbywu2239 [place] [address]Dr. Chapisrenu Pulliam Urea nitrogen/Creatinine [Mass ratio] 22.1 mg/mg Normal [facility] Comment on above: Performed By: #### C DAVID HSTROPN ####[facility] Oksollxglf89[address] [place] [address]Dr. Garima Heraclio TROPONIN, HIGH SENSITIVITYon 09-26-2022 HSTROP 12.8 pg/mL Normal 4.0-76.1 [facility] Comment on above: Result Comment: CUT- OFF POINTS HAVE BEEN ESTABLISHED BASED ON THE FOURTH UNIVERSAL DEFINITIONS OF MYOCARDIALINFARCTION. THE UPPER REFERENCE LIMIT (URL) OF TROPONIN, DEFINED THE 99TH PERCENTILE OFcTnI DISTRIBUTION IN A REFERENCE POPULATION, HAS BEEN CONFIRMED THE DECISION THRESHOLDFOR CT DIAGNOSIS. Performed By: #### C DAVID HSTROPN ####[facility] Cnfwxhmrie6065 [place] [address]Dr. Chapisrenu Pulliam XR CHEST 1 Von 09-26-2022 XR CHEST 1 V Normal [facility] XR CHEST 1 Von 09-16-2022 XR CHEST 1 V Normal [facility] CBC AUTO DIFFon 09-15-2022 BASO # 0.0 103/ul Normal 0.0-0.1 [facility] Comment on above: Performed By: #### C BC ####[facility] Umirahhzmx0442 [place] [address]Dr. Garima Heraclio Basophils/100 WBC (Bld) 0.1 % Critically low 0.2-2.0 [facility] Comment on above: Performed By: #### C BC ####[facility] Gtaepmrmua[address] [place] [address]Dr. Garima Pulliam EO # 0.0 103/ul Normal 0.0-0.7 [facility] Comment on above: Performed By: #### C BC ####[facility] Nujhjuwotd9732 [place] [address]Dr. Garima Pulliam Eosinophils/100 WBC (Bld) 0.1 % Critically low 0.9-7.0 [facility] Comment on above: Performed By: #### C BC ####[facility] Ycqbxttyed8689 [place] [address]Dr. Garima Pulliam Erythrocyte distribution width (RBC) [Ratio] 14.1 % Normal 11.0-15.0 [facility] Comment on above: Performed By: #### C BC ####[facility] [address]izgciwpf[address] [place], [place] [address]Dr. Garima Pulliam Hematocrit (Bld) [Volume fraction] 46.1 % Normal 42.0-54.0 [facility] Comment on above: Performed By: #### C BC ####[facility] Bwehdhnkew[address] [place], [place] [address]Dr. Garima Pulliam Hemoglobin (Bld) [Mass/Vol] 15.0 g/dL Normal 14.0-18.0 [facility] Comment on above: Performed By: #### C BC ####[facility] Dmtimavvlf[address] [place], [place] [address]Dr. Garima Pulliam IG # 0.03 10e3/ul Normal 0.00-0.03 [facility] Comment on above: Performed By: #### C BC ####[facility] Bgxndonxvb[address] [place], [place] [address]Dr. Garima Pulliam IG % 0.3 % Normal 0.0-0.5 [facility] Comment on above: Performed By: #### C BC ####[facility] Ezrzypbkqa[address] [place], [place] [address]Dr. Garima Pulliam LYMPH # 0.6 103/ul Critically low 1.2-3.8 [facility] Comment on above: Performed By: #### C BC ####[facility] Zwusjeqypj50[address] [place], [place] [address]Dr. Garima Pulliam Lymphocytes/100 WBC (Bld) 5.8 % Critically low 20.5-60.0 [facility] Comment on above: Performed By: #### C BC ####[facility] Jvyqvhzwsr9740 [place] [id number]. Garima Pulliam MANUAL DIFF REQ NO Normal [facility] Comment on above: Performed By: #### C BC ####[facility] Tqcizazqnh8740 [place] [address]Dr. Garima Pulliam MCH (RBC) [Entitic mass] 30.2 pg Normal 25.9-34.0 [facility] Comment on above: Performed By: #### C BC ####[facility] Ipktaerafb6[address] [place] [address]Dr. Garima Pulliam MCHC (RBC) [Mass/Vol] 32.5 g/dL Normal 29.9-35.2 [facility] Comment on above: Performed By: #### C BC ####[facility] Jwfyzbgxvy9644 [place] [address]Dr. Garima Pulliam MCV (RBC) [Entitic vol] 92.8 fL Normal 80.0-94.0 [facility] Comment on above: Performed By: #### C BC ####[facility] Xwrhpcvrzz9036 [place] [address]Dr. Garima Heraclio MONO # 0.3 103/ul Normal 0.3-0.8 The [facility] Comment on above: Performed By: #### C BC ####[facility] Snsbfgoruj9581 [place] [id number]. Garima Heraclio Monocytes/100 WBC (Bld) 3.2 % Normal 1.7-12.0 [facility] Comment on above: Performed By: #### C BC ####[facility] Hxzcvaddoe3043 [place] [id number]. Garima Pulliam NEUT # 9.8 103/ul Critically high 1.4-6.5 [facility] Comment on above: Performed By: #### C BC ####[facility] Mnrpwsffcf6161 [place] [id number]. Garima Pulliam Neutrophils/100 WBC (Bld) 90.5 % Critically high 43.0-75.0 [facility] Comment on above: Performed By: #### C BC ####[facility] Eaeksviklk2594 [place] [id number]. Garima Pulliam Platelet mean volume (Bld) [Entitic vol] 9.4 fL Critically low 9.5-13.5 [facility] Comment on above: Performed By: #### C BC ####[facility] Gujkvqjhut3872 [place] [id number]. Garima Pulliam PLT 208 103/ul Normal 150-450 [facility] Comment on above: Performed By: #### C BC ####[facility] Xljdochzoz85[address] [place] [address]Dr. Garima Pulliam RBC 4.97 106/ul Normal 4.70-6.10 [facility] Comment on above: Performed By: #### C BC ####[facility] Mrkqropdew8[address] [place] [address]Dr. Garima Pulliam WBC 10.8 103/ul Normal 4.0-11.0 [facility] Comment on above: Performed By: #### C BC ####[facility] Qfhrhknozb6574 [place] [address]Dr. Garima Pulliam PROF 14(COMP METB)on 022 Albumin [Mass/Vol] 4.0 g/dL Normal 3.4-5.0 [facility] Comment on above: Performed By: #### C MP ####[facility] Ndqwbfgymx9676 [place] [address]Dr. Garima Pulliam Albumin/Globulin [Mass ratio] 1.5 {ratio} Normal [facility] Comment on above: Performed By: #### C MP ####[facility] Pzhmmxspcp8756 [place] [address]Dr. Garima Pulliam ALP [Catalytic activity/Vol] 73 U/L Normal 46-116 [facility] Comment on above: Performed By: #### C MP ####[facility] Teqlhcgjrs1022 [place] [address]Dr. Garima Pulliam ALT [Catalytic activity/Vol] 42 U/L Normal 16-63 [facility] Comment on above: Performed By: #### C MP ####[facility] Eajttsrepv0958 [place] [address]Dr. Garima Pulliam Anion gap [Moles/Vol] 9.1 mmol/L Normal [facility] Comment on above: Performed By: #### C MP ####[facility] Vifnzzlfgs[address] [place], [place] [address]Dr. Garima Pulliam AST [Catalytic activity/Vol] 28 U/L Normal 15-37 [facility] Comment on above: Performed By: #### C MP ####[facility] Crdaiqcgnd[address] [place], [place] [address]Dr. Garima Pulliam Bilirubin [Mass/Vol] 0.6 mg/dL Normal 0.2-1.0 [facility] Comment on above: Performed By: #### C MP ####[facility] Eqoxxysvua20[address] [place], [place] [address]Dr. Garima Pulliam Calcium [Mass/Vol] 8.6 mg/dL Normal 8.5-10.1 [facility] Comment on above: Performed By: #### C MP ####[facility] Fkebzirkch72[address] [place], [place] [address]Dr. Garima Pulliam Chloride [Moles/Vol] 105 mmol/L Normal 98-107 [facility] Comment on above: Performed By: #### C MP ####[facility] Dsnlhgplhv7[address] [place], [place] [address]Dr. Garima Pulliam CO2 [Moles/Vol] 28.5 mmol/L Normal 21.0-32.0 [facility] Comment on above: Performed By: #### C MP ####[facility] Gvmekbhojs[address] [place], [place] [address]Dr. Garima Heraclio Creatinine [Mass/Vol] 0.78 mg/dL Normal 0.70-1.30 [facility] Comment on above: Performed By: #### C MP ####[facility] Ljprgjznyr[address] [place], [place] [address]Dr. Chapisrenu Heraclio EGFR-AF MOSOTHO >60 Normal >=60 [facility] Comment on above: Performed By: #### C MP ####[facility] Nsjbhydoxa[address] [place], [place] [address]Dr. Garima Pulliam EGFR-NON AF MOSOTHO >60 Normal >=60 [facility] Comment on above: Performed By: #### C MP ####[facility] Tmywdijjvk3893 [place] [address]Dr. Garima Pulliam Globulin (S) [Mass/Vol] 2.7 g/dL Normal [facility] Comment on above: Performed By: #### C MP ####[facility] Aercjdxnma2638 [place] [address]Dr. Garima Pulliam Glucose [Mass/Vol] 220 mg/dL Critically high 74-106 [facility] Comment on above: Performed By: #### C MP ####[facility] Qerjdlbwgz0958 [place] [address]Dr. Garima Pulliam Potassium [Moles/Vol] 3.6 mmol/L Normal 3.5-5.1 [facility] Comment on above: Performed By: #### C MP ####[facility] Thmfmiqcif[address] [place], [place] [address]Dr. Garima Pulliam Protein [Mass/Vol] 6.7 g/dL Normal 6.4-8.2 [facility] Comment on above: Performed By: #### C MP ####[facility] Mfzkrehexb[address] [place], [place] [address]Dr. Garima Pulliam Sodium [Moles/Vol] 139 mmol/L Normal 136-145 [facility] Comment on above: Performed By: #### C MP ####[facility] Znlkzpyxvc201[address] [place], [place] [address]Dr. Garima Pulliam Urea nitrogen [Mass/Vol] 11.0 mg/dL Normal 7.0-18.0 [facility] Comment on above: Performed By: #### C MP ####[facility] Acrkvgvydz15[address] [place], [place] [address]Dr. Garima Pulliam Urea nitrogen/Creatinine [Mass ratio] 14.1 mg/mg Normal [facility] Comment on above: Performed By: #### C MP ####[facility] Vnsogqjsyy149[address] [place], [place] [address]Dr. Garima Pulliam CARDIAC NASH 3-6on 2 CK [Catalytic activity/Vol] 240 U/L Normal 39-308 [facility] Comment on above: Performed By: #### C MREP ####[facility] Gwixkfxvvg22[address] [place] [address]Dr. Garima Pulliam CK.MB [Mass/Vol] 10.38 ng/mL Critically high <=3.60 [facility] Comment on above: Performed By: #### C MREP ####[facility] Hxxgwnzycf5907 [place] [address]Dr. Garima Pulliam HSTROP 18.5 pg/mL Normal 4.0-76.1 [facility] Comment on above: Result Comment: CUT- OFF POINTS HAVE BEEN ESTABLISHED BASED ON THE FOURTH UNIVERSAL DEFINITIONS OF MYOCARDIALINFARCTION. THE UPPER REFERENCE LIMIT (URL) OF TROPONIN, DEFINED THE 99TH PERCENTILE OFcTnI DISTRIBUTION IN A REFERENCE POPULATION, HAS BEEN CONFIRMED THE DECISION THRESHOLDFOR CT DIAGNOSIS. Performed By: #### C MREP ####[facility] Wupxokmhjv44[address] [place] [address]Dr. Garima Pulliam CK [Catalytic activity/Vol] 257 U/L Normal 39-308 [facility] Comment on above: Performed By: #### C MREP ####[facility] Mwwsjjzffu[address] [place], [place] [address]Dr. Garima Pulliam CK.MB [Mass/Vol] 9.89 ng/mL Critically high <=3.60 [facility] Comment on above: Performed By: #### C MREP ####[facility] Qpqxwzanml43[address] [place], [place] [address]Dr. Garima Pulliam HSTROP 16.9 pg/mL Normal 4.0-76.1 [facility] Comment on above: Result Comment: CUT- OFF POINTS HAVE BEEN ESTABLISHED BASED ON THE FOURTH UNIVERSAL DEFINITIONS OF MYOCARDIALINFARCTION. THE UPPER REFERENCE LIMIT (URL) OF TROPONIN, DEFINED THE 99TH PERCENTILE OFcTnI DISTRIBUTION IN A REFERENCE POPULATION, HAS BEEN CONFIRMED THE DECISION THRESHOLDFOR CT DIAGNOSIS. Performed By: #### C MREP ####[facility] Zsuveecmhe22[address] [place] [address]Dr. Garima Heraclio CBC AUTO DIFFon 10-22-2022 BASO # 0.0 103/ul Normal 0.0-0.1 [facility] Comment on above: Performed By: #### C BC ####[facility] Dmbuavanzs8550 [place] [id number]. Garima Pulliam Basophils/100 WBC (Bld) 0.1 % Critically low 0.2-2.0 [facility] Comment on above: Performed By: #### C BC ####[facility] Qnmcxrkzui7036 [place] [address]Dr. Garima Pulliam EO # 0.0 103/ul Normal 0.0-0.7 [facility] Comment on above: Performed By: #### C BC ####[facility] Risjfzdmjr[address] [place], [place] [address]Dr. Chapisrenu Heraclio Eosinophils/100 WBC (Bld) 0.0 % Critically low 0.9-7.0 [facility] Comment on above: Performed By: #### C BC ####[facility] Tkqksjawbq[address] [place], [place] [address]Dr. Garima Pulliam Erythrocyte distribution width (RBC) [Ratio] 13.6 % Normal 11.0-15.0 [facility] Comment on above: Performed By: #### C BC ####[facility] Tnqfpcafki065[address] [place], [place] [address]Dr. Garima Pulliam Hematocrit (Bld) [Volume fraction] 48.2 % Normal 42.0-54.0 [facility] Comment on above: Performed By: #### C BC ####[facility] Lsowtdpuux6[address] [place], [place] [address]Dr. Garima Pulliam Hemoglobin (Bld) [Mass/Vol] 16.0 g/dL Normal 14.0-18.0 [facility] Comment on above: Performed By: #### C BC ####[facility] Qdfwwoudfh04[address] [place], [place] [address]Dr. Chapisrenu Heraclio IG # 0.02 10e3/ul Normal 0.00-0.03 [facility] Comment on above: Performed By: #### C BC ####[facility] Gsejgkllnl0042 [place] [id number]. Garima Pulliam IG % 0.3 % Normal 0.0-0.5 [facility] Comment on above: Performed By: #### C BC ####[facility] Otyougukjc1040 [place] [address]Dr. Garima Heraclio LYMPH # 0.5 103/ul Critically low 1.2-3.8 [facility] Comment on above: Performed By: #### C BC ####[facility] Cbkwiwrabl1653 [place] [address]Dr. Garima Heraclio Lymphocytes/100 WBC (Bld) 7.7 % Critically low 20.5-60.0 [facility] Comment on above: Performed By: #### C BC ####[facility] Wwmofjzzsi18[address] [place], [place] [address]Dr. Chapisrenu Pulliam MANUAL DIFF REQ NO Normal [facility] Comment on above: Performed By: #### C BC ####[facility] Lozzuyjkjy[address] [place], [place] [address]Dr. Garima Heraclio MCH (RBC) [Entitic mass] 30.6 pg Normal 25.9-34.0 [facility] Comment on above: Performed By: #### C BC ####[facility] Wirvhmmnsf96[address] [place], [place] [address]Dr. Garima Pulliam MCHC (RBC) [Mass/Vol] 33.2 g/dL Normal 29.9-35.2 [facility] Comment on above: Performed By: #### C BC ####[facility] Ifywluxosp[address] [place], [place] [address]Dr. Garima Heraclio MCV (RBC) [Entitic vol] 92.2 fL Normal 80.0-94.0 [facility] Comment on above: Performed By: #### C BC ####[facility] Jgxrwhtabw[address] [place], [place] [address]Dr. Garima Pulliam MONO # 0.0 103/ul Critically low 0.3-0.8 [facility] Comment on above: Performed By: #### C BC ####[facility] Clwjbchdvv0110 [place] [id number]. Garima Pulliam Monocytes/100 WBC (Bld) 0.4 % Critically low 1.7-12.0 [facility] Comment on above: Performed By: #### C BC ####[facility] Poscqkiixl0654 [place] [id number]. Garima Pulliam NEUT # 6.2 103/ul Normal 1.4-6.5 [facility] Comment on above: Performed By: #### C BC ####[facility] Fznudzjtan0665 [place] [address]Dr. Garima Pulliam Neutrophils/100 WBC (Bld) 91.5 % Critically high 43.0-75.0 [facility] Comment on above: Performed By: #### C BC ####[facility] Yffwrewaus3421 [place] [address]Dr. Garima Pulliam Platelet mean volume (Bld) [Entitic vol] 8.7 fL Critically low 9.5-13.5 [facility] Comment on above: Performed By: #### C BC ####[facility] Jrrbwlfmtt1254 [place] [address]Dr. Garima Pulliam PLT 179 103/ul Normal 150-450 [facility] Comment on above: Performed By: #### C BC ####[facility] Gzjqwcemfr3972 [place] [id number]. Garima Pulliam RBC 5.23 106/ul Normal 4.70-6.10 [facility] Comment on above: Performed By: #### C BC ####[facility] Cynubstplm3061 [place] [address]Dr. Garima Pulliam WBC 6.7 103/ul Normal 4.0-11.0 [facility] Comment on above: Performed By: #### C BC ####[facility] Fprwxnrnyj8832 [place] [address]Dr. Garima Pulliam PROF CHEM 8 (BAS METB)on Anion gap [Moles/Vol] 12.1 mmol/L Normal [facility] Comment on above: Performed By: #### B MP ####[facility] Kmqftxfvhl0349 [place] [id number]. Garima Pulliam Calcium [Mass/Vol] 8.7 mg/dL Normal 8.5-10.1 [facility] Comment on above: Performed By: #### B MP ####[facility] Olnhdipdml8974 [place] [id number]. Garima Pulliam Chloride [Moles/Vol] 105 mmol/L Normal 98-107 [facility] Comment on above: Performed By: #### B MP ####[facility] Enymzekell5848 [place] [id number]. Garima Pulliam CO2 [Moles/Vol] 25.5 mmol/L Normal 21.0-32.0 [facility] Comment on above: Performed By: #### B MP ####[facility] Jhnnahngzo5471 [place] [address]Dr. Garmia Pulliam Creatinine [Mass/Vol] 0.63 mg/dL Critically low 0.70-1.30 [facility] Comment on above: Performed By: #### B MP ####[facility] Yqtsbirvow3229 [place] [address]Dr. Garima Pulliam EGFR-AF MOSOTHO >60 Normal >=60 [facility] Comment on above: Performed By: #### B MP ####[facility] Wzmztrvlau5938 [place] [address]Dr. Garima Pulliam EGFR-NON AF MOSOTHO >60 Normal >=60 [facility] Comment on above: Performed By: #### B MP ####[facility] Nuzijdqmuk9600 [place] [address]Dr. Garima Pulliam Glucose [Mass/Vol] 162 mg/dL Critically high 74-106 [facility] Comment on above: Performed By: #### B MP ####[facility] Ebgivnfcme[address] [place], [place] [address]Dr. Garima Pulliam Potassium [Moles/Vol] 3.6 mmol/L Normal 3.5-5.1 [facility] Comment on above: Performed By: #### B MP ####[facility] Hnpontcgwi[address] [place], [place] [address]Dr. Garima Pulliam Sodium [Moles/Vol] 139 mmol/L Normal 136-145 [facility] Comment on above: Performed By: #### B DAVID ####[facility] Omvxeuuupi4802 [place] [address]Dr. Garima Pulliam Urea nitrogen [Mass/Vol] 9.0 mg/dL Normal 7.0-18.0 [facility] Comment on above: Performed By: #### B DAVID ####[facility] Jdmcecrljv3079 [place] [address]Dr. Garima Pulliam Urea nitrogen/Creatinine [Mass ratio] 14.3 mg/mg Normal [facility] Comment on above: Performed By: #### B DAVID ####[facility] Gnvtersddp2277 [place] [address]Dr. Chapisrenu Pulliam CARDIAC NASH ADMITon 09-12- 022 CK [Catalytic activity/Vol] 304 U/L Normal 39-308 [facility] Comment on above: Performed By: #### B NANCY HERNANDEZ ####[facility] Nvnrzwyvwq9762 [place] [address]Dr. Garima Pulliam CK.MB [Mass/Vol] 11.81 ng/mL Critically high <=3.60 [facility] Comment on above: Performed By: #### B NANCY HERNANDEZ ####[facility] Gtsovofwak4958 [place] [address]Dr. Garima Heraclio HSTROP 13.3 pg/mL Normal 4.0-76.1 [facility] Comment on above: Result Comment: CUT- OFF POINTS HAVE BEEN ESTABLISHED BASED ON THE FOURTH UNIVERSAL DEFINITIONS OF MYOCARDIALINFARCTION. THE UPPER REFERENCE LIMIT (URL) OF TROPONIN, DEFINED THE 99TH PERCENTILE OFcTnI DISTRIBUTION IN A REFERENCE POPULATION, HAS BEEN CONFIRMED THE DECISION THRESHOLDFOR CT DIAGNOSIS. Performed By: #### B NANCY HERNANDEZ ####[facility] Diajolesys9217 [place] [address]Dr. Garima Pulliam DORIS 133 ng/mL Critically high 16-[address] [facility] Comment on above: Performed By: #### B NANCY HERNANDEZ ####[facility] Cnlygehqfv8500 [place] [address]Dr. Garima Pulliam CBC AUTO DIFFon 09-12-2022 BASO # 0.0 103/ul Normal 0.0-0.1 [facility] Comment on above: Performed By: #### C BC ####[facility] Dtxspxspfo[address] [place], [place] [address]Dr. Garima Heraclio Basophils/100 WBC (Bld) 0.2 % Normal 0.2-2.0 [facility] Comment on above: Performed By: #### C BC ####[facility] Befgfbhfqe080[address] [place], [place] [address]Dr. Garima Heraclio EO # 0.2 103/ul Normal 0.0-0.7 [facility] Comment on above: Performed By: #### C BC ####[facility] Dwzkpvafrs099[address] [place], [place] [address]Dr. Chapisrenu Pulliam Eosinophils/100 WBC (Bld) 1.3 % Normal 0.9-7.0 [facility] Comment on above: Performed By: #### C BC ####[facility] Cybbwcvtwz67[address] [place], [place] [address]Dr. Garima Pulliam Erythrocyte distribution width (RBC) [Ratio] 13.7 % Normal 11.0-15.0 [facility] Comment on above: Performed By: #### C BC ####[facility] Mjmxyucbth93[address] [place], [place] [address]Dr. Garima Pulliam Hematocrit (Bld) [Volume fraction] 46.4 % Normal 42.0-54.0 [facility] Comment on above: Performed By: #### C BC ####[facility] Westeitkqm86[address] [place], [place] [address]Dr. Garima Pulliam Hemoglobin (Bld) [Mass/Vol] 15.7 g/dL Normal 14.0-18.0 [facility] Comment on above: Performed By: #### C BC ####[facility] Fmcdgjtbvn[address] [place], [place] [address]Dr. Garima Pulliam IG # 0.04 10e3/ul Critically high 0.00-0.03 [facility] Comment on above: Performed By: #### C BC ####[facility] Iqsdccclen9057 [place] [id number]. Garima Pulliam IG % 0.3 % Normal 0.0-0.5 [facility] Comment on above: Performed By: #### C BC ####[facility] Uqahdqzodq3577 [place] [address]Dr. Garima Pulliam LYMPH # 1.7 103/ul Normal 1.2-3.8 [facility] Comment on above: Performed By: #### C BC ####[facility] Arrszclguv0214 [place] [address]Dr. Garima Pulliam Lymphocytes/100 WBC (Bld) 11.5 % Critically low 20.5-60.0 [facility] Comment on above: Performed By: #### C BC ####[facility] Qviyqginds5805 [place] [address]Dr. Garima Pulliam MANUAL DIFF REQ NO Normal [facility] Comment on above: Performed By: #### C BC ####[facility] Tqxveyygaa5762 [place] [id number]. Garima Pulliam MCH (RBC) [Entitic mass] 31.0 pg Normal 25.9-34.0 [facility] Comment on above: Performed By: #### C BC ####[facility] Nrpesecqbg6712 [place] [address]Dr. Garima Pulliam MCHC (RBC) [Mass/Vol] 33.8 g/dL Normal 29.9-35.2 [facility] Comment on above: Performed By: #### C BC ####[facility] Ywbadpwpkz6271 [place] [address]Dr. Garima Pulliam MCV (RBC) [Entitic vol] 91.7 fL Normal 80.0-94.0 [facility] Comment on above: Performed By: #### C BC ####[facility] Vnqfxnhewb6556 [place] [address]Dr. Garima Heraclio MONO # 0.8 103/ul Normal 0.3-0.8 [facility] Comment on above: Performed By: #### C BC ####[facility] Inumnhzgyq7773 [place] [address]Dr. Garima Pulliam Monocytes/100 WBC (Bld) 5.2 % Normal 1.7-12.0 [facility] Comment on above: Performed By: #### C BC ####[facility] Dmduktfjjj0663 [place] [address]Dr. Garima Pulliam NEUT # 11.7 103/ul Critically high 1.4-6.5 [facility] Comment on above: Performed By: #### C BC ####[facility] Lrkocdqklz7366 [place] [address]Dr. Gariam Pulliam Neutrophils/100 WBC (Bld) 81.5 % Critically high 43.0-75.0 [facility] Comment on above: Performed By: #### C BC ####[facility] Gvgzswraqv9613 [place] [address]Dr. Garima Pulliam Platelet mean volume (Bld) [Entitic vol] 8.6 fL Critically low 9.5-13.5 [facility] Comment on above: Performed By: #### C BC ####[facility] Tjbofyrmhv7812 [place] [id number]. Garima Pulliam PLT 191 103/ul Normal 150-450 [facility] Comment on above: Performed By: #### C BC ####[facility] Qptqisbfpd[address] [place], [place] [address]Dr. Garima Pulliam RBC 5.06 106/ul Normal 4.70-6.10 [facility] Comment on above: Performed By: #### C BC ####[facility] Ujcietukmg[address] [place], [place] [address]Dr. Garima Pulliam WBC 14.4 103/ul Critically high 4.0-11.0 [facility] Comment on above: Performed By: #### C BC ####[facility] Zpezqxrlvc[address] [place], [place] [address]Dr. Garima Pulliam [facility]24 SARS-CoV-2 (COVID-19) RNA MARIE+probe Ql (Unsp spec) Not detected Normal NOT DETECTED [facility] Comment on above: Result Comment: When [...] for this test is supported by the [employer] of Health and Human Service's declaration that [...] used). Performed By: #### C VDTBH ####[facility] Jrjspeoxgv[address] [place], [place] [address]Dr. Garima Pulliam LACTATE/LACTIC ACIDon 2021 Lactate [Moles/Vol] 1.0 mmol/L Normal 0.4-1.9 [facility] Comment on above: Performed By: #### L ACT ####[facility] Knwdyogdad[address] [place], [place] [address]Dr. Garima Pulliam PROF CHEM 8 (BAS METB)on Anion gap [Moles/Vol] 11.6 mmol/L Normal [facility] Comment on above: Performed By: #### B NANCY HERNANDEZ ####[facility] Vfwakcmjdj1720 [place] [address]Dr. Garima Pulliam Calcium [Mass/Vol] 9.2 mg/dL Normal 8.5-10.1 [facility] Comment on above: Performed By: #### B NANCY HERNANDEZ ####[facility] Ezxcsmmpbv6819 [place] [address]Dr. Garima Pulliam Chloride [Moles/Vol] 105 mmol/L Normal 98-107 [facility] Comment on above: Performed By: #### B MP, CMADM ####[facility] Imbvdwdzbi1776 [place] [id number]. Garima Pulliam CO2 [Moles/Vol] 25.9 mmol/L Normal 21.0-32.0 [facility] Comment on above: Performed By: #### B DAVID, CMADM ####[facility] Qzpivdaayg3201 [place] [address]Dr. Garima Pulliam Creatinine [Mass/Vol] 0.72 mg/dL Normal 0.70-1.30 [facility] Comment on above: Performed By: #### B DAVID, CMADM ####[facility] Ompwtzbmou6088 [place] [address]Dr. Garima Pulliam EGFR-AF MOSOTHO >60 Normal >=60 [facility] Comment on above: Performed By: #### B DAVID, CMADM ####[facility] Rigxiamlvc7331 [place] [address]Dr. Chapisrenu Pulliam EGFR-NON AF MOSOTHO >60 Normal >=60 [facility] Comment on above: Performed By: #### B DAVID, CMAANA ROSA ####[facility] Zorafhjbph7170 [place] [address]Dr. Garima Pulliam Glucose [Mass/Vol] 111 mg/dL Critically high 74-106 [facility] Comment on above: Performed By: #### B DAVID, CMADM ####[facility] Dumgstytuj8326 [place] [address]Dr. Chapisrenu Pulliam Potassium [Moles/Vol] 3.5 mmol/L Normal 3.5-5.1 [facility] Comment on above: Performed By: #### B DAVID, CMADM ####[facility] Osbncexisj6174 [place] [address]Dr. Chapisrenu Pulliam Sodium [Moles/Vol] 139 mmol/L Normal 136-145 [facility] Comment on above: Performed By: #### B DAVID, CMADM ####[facility] Bkgsrzxphs0476 [place] [address]Dr. Garima Pulliam Urea nitrogen [Mass/Vol] 7.0 mg/dL Normal 7.0-18.0 [facility] Comment on above: Performed By: #### B DAVID, CMADM ####[facility] Uxzbbnptqp9529 [place], [place] [address]Hq. Garima Pulliam Urea nitrogen/Creatinine [Mass ratio] 9.7 mg/mg Normal [facility] Comment on above: Performed By: #### B MP, CMADM ####[facility] Rnazxgwxid4120 [place], [place] [address]Is. Garima Pulliam XR CHEST 1 Von 09-12-2022 XR CHEST 1 V Normal [facility] Encounters Encounter Date Encounter Type [...] Facility:H1 Payers Date Payer Category Payer Unknown [id number] 1960 Medicaid [id number] 1960 Unknown [id number] 1960 Unknown [id number] 1954 Unknown [id number] 2.16.84 0.1.709353.3.579.2.593 1954 Unknown [id number] 2.16.84 0.1.818581.3.579.2.593 1954 Unknown [id number] 2.16.84 0.1.302476.3.579.2.593 1954 Unknown [id number] 2.16.84 0.1.777452.3.579.2.593 1954 Unknown [id number] 2.16.84 0.1.107256.3.579.2.593 1954 Unknown [id number] 2.16.84 0.1.131508.3.579.2.593 1954 Unknown [id number] 2.16.84 0.1.061242.3.579.2.593 1954 Unknown [id number] 2.16.84 0.1.254772.3.579.2.593 1954 Unknown [id number] 2.16.84 0.1.199677.3.579.2.593 1954 Unknown [id number] 2.16.84 0.1.769344.3.579.2.593 1954 Unknown [id number] 2.16.84 0.1.734926.3.579.2.593 1954 Unknown [id number] 2.16.84 0.1.681557.3.579.2.593 1954 Unknown [id number] 2.16.84 0.1.621021.3.579.2.593 1954 Unknown [id number] 2.16.84 0.1.154553.3.579.2.593 1954 Unknown [id number] 2.16.84 0.1.107348.3.579.2.593 1954 Unknown [id number] 2.16.84 0.1.775677.3.579.2.593 1954 Unknown [id number] 2.16.84 0.1.876220.3.579.2.593 1954 Unknown [id number] 2.16.84 0.1.330006.3.579.2.593 1955 Unknown [id number] 1955 Unknown [id number] Summary Purpose Family History No Family History Records Found Advance Directives No Advanced Directives Records Found Additional Source Comments (unrecognized sect ion and content) No Status Records Found INFORMATION SOURCE (unrecogn ized section and content) DATE CREATED AUTHOR 04/08/2023 [facility] FOR RECORDS PERTAINING TO PATIENTS WHO ARE [...] BE BASED ON THE PRIMARY CLINICAL RECORDS. [facility] [employer] [facility]. provides no warranty or guarantee of the accuracy or completeness of information in this document.
[2024-09-25 01:29] VITALS: BP 214/108; PULSE 72; TEMP 36.5; O2SAT 92
[2024-09-25 01:47] VITALS: O2SAT 92
--- NOTE | 2024-09-25 01:47 | PC.NURSE ---
Patient to ED with increased SOB that started today. He is a frequent patient to the ED with c/o needing breathing treatment. He declines offer of workup including CXR, steroids, or labs. He just wants breathing treatment and inhaler to go.
--- NOTE | 2024-09-25 01:48 | ED.GENADUL1 ---
HPI HPI - General Adult General Chief complaint: Shortness of Breath/Dyspnea Stated complaint: sob Time Seen by Provider: 09/25/24 01:22 EDT Source: patient Mode of arrival: Wheelchair History of Present Illness HPI narrative: 69-year-old male to the emergency department with chief complaint of needing a breathing treatment. Patient reports that his nebulizer cartridges and inhaler are in the mail and will be delivered until Thursday. He reports that he does not want any workup, needles, EKGs, chest x-rays. He would just like a breathing treatment at discharge. He also needs a albuterol inhaler and some aerosol cartridges for home. Related Data Home Medications ?Medication ?Instructions ?Recorded ?Confirmed albuterol sulfate 90 mcg/actuation 2 inh inhalation Q6H PRN shortness 03/13/24 08/25/24 aerosol inhaler of breath or wheezing Previous Rx's ?Medication ?Instructions ?Recorded losartan 100 mg tablet 100 mg PO DAILY #30 tabs 12/27/23 albuterol sulfate 2.5 mg/3 mL 2.5 mg (3 mL) inhalation Q6H PRN 05/26/24 (0.083 %) solution for nebulization shortness of breath or wheezing #90 mL loratadine 10 mg tablet (Claritin) 10 mg PO DAILY #20 tabs 05/30/24 albuterol sulfate 2.5 mg/3 mL 2.5 mg (3 mL) inhalation Q6H PRN 08/07/24 (0.083 %) solution for nebulization shortness of breath or wheezing #90 mL albuterol sulfate 90 mcg/actuation 2 inh inhalation Q4H PRN shortness 08/07/24 aerosol inhaler of breath or wheezing #8.5 grams albuterol sulfate 2.5 mg/3 mL 1.25 mg (1.5 mL) inhalation Q6H 09/04/24 (0.083 %) solution for nebulization PRN bronchospasm #75 mL albuterol sulfate 90 mcg/actuation 2 inh inhalation Q6H PRN shortness 09/04/24 aerosol inhaler of breath or wheezing #6.7 grams albuterol sulfate 2.5 mg/3 mL 2.5 mg (3 mL) inhalation Q6H PRN 09/12/24 (0.083 %) solution for nebulization shortness of breath or wheezing #90 mL azithromycin 250 mg tablet See Rx Instructions PO .COMPLEX #6 09/21/24 (Zithromax Z-Luis) tabs prednisone 20 mg tablet See Rx Instructions .Route 09/21/24 .COMPLEX #12 tabs Allergies Allergy/AdvReac Type Severity Reaction Status Date / Time No Known Drug Allergies Allergy Verified 09/25/24 01:35 EDT Opioid HPI Opioid Management Most Recent Opioid Data: Last ORT Total Score 0 01/29/24 06:36 01/29/24 Last ORT Risk Category Low Risk 01/29/24 06:36 01/29/24 Review of Systems ROS Status of ROS 10 or more systems reviewed and unremarkable except as noted in history and below [facility] Medical History (Updated 09/25/24 @ 01:47 EDT by Abdullahi Ivory MD) Hypokalemia ?E87.6 - Hypokalemia (ICD-10) New onset type 2 diabetes mellitus ?E11.9 - Type 2 diabetes mellitus without complications (ICD-10) Lower extremity edema ?R60.0 - Localized edema (ICD-10) Edema ?R60.9 - Edema, unspecified (ICD-10) Acute hyperglycemia ?R73.9 - Hyperglycemia, unspecified (ICD-10) Tobacco abuse ?Z72.0 - Tobacco use (ICD-10) HTN (hypertension) ?I10 - Essential (primary) hypertension (ICD-10) Community acquired pneumonia ?J18.9 - Pneumonia, unspecified organism (ICD-10) Chronic obstructive pulmonary disease ?J44.9 - Chronic obstructive pulmonary disease, unspecified (ICD-10) Acute exacerbation of chronic obstructive pulmonary disease (COPD) ?J44.1 - Chronic obstructive pulmonary disease with (acute) exacerbation (ICD-10) RLL pneumonia ?J18.9 - Pneumonia, unspecified organism (ICD-10) COPD (chronic obstructive pulmonary disease) ?J44.9 - Chronic obstructive pulmonary disease, unspecified (ICD-10) Surgical History (Updated 01/29/24 @ 06:45 by Latonia Martin RN) Hx of tonsillectomy ?Z90.89 - Acquired absence of other organs (ICD-10) Family History (Updated 12/25/23 @ 21:28 by Kym Ordaz) Mother Family history of cancer Family history of hypertension Father Family history of cancer Social History Within the past year, how often did you have a drink containing alcohol: 4 or more times a week Within the past year, how many standard drinks containing alcohol did you have on a typical day: 3 or 4 Within the past year, how often did you have six or more drinks on one occasion: less than monthly Total score: 3 Score interpretation: A score of 4 or more indicates drinking is likely to affect patient's safety. Smoking status: Current every day smoker Non-prescribed substance use: cannabis (any form) Previous occupational history: retired Highest level of school completed/degree received: high school graduate Are you now , , , , never or living with a partner: In a typical week, how many times do you talk on the telephone with family, friends, or neighbors: twice per week How often do you get together with friends or relatives: once per week How often do you attend sabianism or yarsani services: never Do you belong to any clubs or organizations such as sabianism groups unions, [employer] or athletic groups, or school groups: no Total score: 1 Score interpretation: A score of less than or equal to 1 indicates the most socially isolated. Little interest or pleasure in doing things: not at all Feeling down, depressed, or hopeless: not at all Feel stressed/tense/nervous/anxious/difficulty sleeping: not at all Do you think of yourself as: straight/heterosexual Gender Identity: male Exam Narrative Exam Narrative: VITALS: I have reviewed the triage vital signs. GENERAL: Well developed, well appearing adult in no acute distress. NEURO: Alert and oriented. Moves all extremities. Face is symmetric and expressive. EYES: PERRL. No scleral icterus or conjunctival injection. No discharge. HENT: Normocephalic, atraumatic. Hearing is grossly intact. Nares grossly patent and without discharge. Mucous membranes moist. NECK: No JVD. Patient moves neck without restriction. CARDIO: Rhythm regular. Normal rate. No murmur, rub, or gallop. Pulses equal bilaterally in the upper and lower extremity. No lower extremity edema. PULM: Trace wheezes. No conversational dyspnea. No splinting, stridor, or accessory muscle use. GI/: Abdomen is soft and non-tender. Normoactive bowel sounds. EXTREMITIES: Symmetric muscle bulk. No joint swelling. No clubbing, cyanosis, or deformity. SKIN: Warm and dry. Normal turgor. No rash or lesions appreciated. PSYCH: Mood, affect, and interaction is appropriate to the setting. Constitutional Vital Signs, click to edit/add: Last Vital Signs Temp 97.7 F 09/25/24 01:29 EDT Pulse 72 09/25/24 01:29 EDT Resp 16 09/25/24 01:29 EDT BP 214/108 H 09/25/24 01:29 EDT Pulse Ox 92 L 09/25/24 01:47 EDT O2 Del Method Room Air 09/25/24 01:47 EDT Course Vital Signs Vital signs: Vital Signs Temperature 97.7 F 09/25/24 01:29 EDT Pulse Rate 72 09/25/24 01:29 EDT Respiratory Rate 16 09/25/24 01:29 EDT Blood Pressure 214/108 H 09/25/24 01:29 EDT Pulse Oximetry 92 L 09/25/24 01:29 EDT Oxygen Delivery Method Room Air 09/25/24 01:29 EDT Temperature 97.7 F 09/25/24 01:29 EDT Pulse Rate 72 09/25/24 01:29 EDT Respiratory Rate 16 09/25/24 01:29 EDT Blood Pressure 214/108 H 09/25/24 01:29 EDT Pulse Oximetry 92 L 09/25/24 01:47 EDT Oxygen Delivery Method Room Air 09/25/24 01:47 EDT Medical Decision Making MDM Narrative Medical decision making narrative: Well-appearing 69-year-old male to the emergency department requesting breathing treatment and meds for home. Vital stable, the patient is afebrile. He is in no respiratory distress. His pulse ox is normal. He is offered workup with labs, EKG, chest x-ray and declines. Patient felt fine after breathing treatment. DuoNeb cartridges every 4 hours as needed for shortness of breath and albuterol every 4 hours as needed shortness of breath were sent for home. He will follow-up with his PCP. Return precautions were discussed. All questions were answered. The patient was discharged home. Medical Records Medical records reviewed: Yes I reviewed the patient's medical records Discharge Plan Discharge Chief Complaint: Shortness of Breath/Dyspnea Clinical Impression: Medication refill, COPD (chronic obstructive pulmonary disease) Patient Disposition: Home, Self-Care Time of Disposition Decision: 01:46 Condition: Good Prescriptions / Home Meds: No Action losartan 100 mg tablet 100 mg PO DAILY Qty: 30 11RF albuterol sulfate 90 mcg/actuation HFA aerosol inhaler 2 inh inhalation Q6H PRN (Reason: shortness of breath or wheezing) albuterol sulfate 2.5 mg /3 mL (0.083 %) solution for nebulization 2.5 mg inhalation Q6H PRN (Reason: shortness of breath or wheezing) Qty: 90 0RF albuterol sulfate 2.5 mg /3 mL (0.083 %) solution for nebulization 2.5 mg inhalation Q6H PRN (Reason: shortness of breath or wheezing) Qty: 90 0RF albuterol sulfate 90 mcg/actuation HFA aerosol inhaler 2 inh inhalation Q4H PRN (Reason: shortness of breath or wheezing) Qty: 8.5 0RF albuterol sulfate 2.5 mg /3 mL (0.083 %) solution for nebulization 2.5 mg inhalation Q6H PRN (Reason: shortness of breath or wheezing) Qty: 90 0RF azithromycin [Zithromax Z-Luis] 250 mg tablet See Rx Instructions .ROUTE .COMPLEX Qty: 6 0RF Rx Instructions: For 250 mg dose pack: take 500 mg today (day 1), then 250 mg for 4 days (days 2-5) prednisone 20 mg tablet See Rx Instructions .ROUTE .COMPLEX Qty: 12 0RF Rx Instructions: 3 tabs daily for 2 days, then 2 tabs daily for 2 days, then 1 tab daily for 2 days loratadine [Claritin] 10 mg tablet 10 mg PO DAILY Qty: 20 0RF albuterol sulfate 2.5 mg /3 mL (0.083 %) solution for nebulization 1.25 mg inhalation Q6H PRN (Reason: bronchospasm) Qty: 75 0RF albuterol sulfate 90 mcg/actuation HFA aerosol inhaler 2 inh inhalation Q6H PRN (Reason: shortness of breath or wheezing) Qty: 6.7 0RF Print Language: Lao Instructions: How to Use a Metered-Dose Inhaler (ED), COPD (Chronic Obstructive Pulmonary Disease) (ED), How to Use a Nebulizer (ED) Additional Instructions: Call the office of your primary care doctor to arrange for follow-up within the above-stated timeframe. Your ED visit was focused on your acute issue and does not replace primary care. You should review your labs, imaging, and diagnoses from this ED visit with your primary care physician. There may be non-emergent/ incidental findings that need further evaluation. You should review your vital signs including blood pressure with your PCP. If you were prescribed medications you should discuss possible side-effects and drug interactions with your pharmacist. Call 911 or go to the nearest Emergency Department if you develop any new or worsening symptoms. Seek immediate medical attention if you develop: worsening shortness of breath, difficulty breathing, chest pain, nausea, vomiting, weakness, numbness, tingling, excessive sweating, loss of motion in your arms or legs, or any new or worsening symptoms. Referrals: SERG DUENAS [Primary Care Provider] - 1 week
== END 2024-09-25 01:56 | disposition home or self-care (01) ==
PROVIDERS: Emergency Provider Student in an Organized Health Care Education/Training Program
DX: Z76.0 Encounter for issue of repeat prescription (principal); J44.9 Chronic obstructive pulmonary disease, unspecified; F17.200 Nicotine dependence, unspecified, uncomplicated
CPT/HCPCS: 94640; 99284

== ENCOUNTER 2024-09-28 07:40 | Emergency (ER) | payer MEDICARE, SELFPAY ==
[2024-09-28 07:50] VITALS: BP 167/96; O2SAT 90
[2024-09-28 07:51] VITALS: BP 167/96; PULSE 78; TEMP 37.1; O2SAT 93; BMI 23.7
--- OUTSIDE RECORDS SUMMARY | 2024-09-28 07:53 | XMS_ITS | CCD ---
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 Garima Pulliam Basophils/100 WBC (Bld) 0.3 % Normal 0.2-2.0 [facility] Comment on above: Performed By: #### C BC ####[facility] Uykpaorckf[address] [place] [address]DrAdalberto Pulliam EO # 0.3 103/ul Normal 0.0-0.7 [facility] Comment on above: Performed By: #### C BC ####[facility] [address]seqhwuibx[address] [place], [place] [address]Dr. Garima Pulliam Eosinophils/100 WBC (Bld) 2.8 % Normal 0.9-7.0 [facility] Comment on above: Performed By: #### C BC ####[facility] Wmt[address]rchyw[address] [place] [address]Dr. Garima Pulliam Erythrocyte distribution width (RBC) [Ratio] 13.4 % Normal 11.0-15.0 [facility] Comment on above: Performed By: #### C BC ####[facility] Gfvyajuowl[address] [place] [address]Dr. Garima Pulliam Hematocrit (Bld) [Volume fraction] 45.7 % Normal 42.0-54.0 [facility] Comment on above: Performed By: #### C BC ####[facility] Bjpzfcnnhk[address] [place] [address]Dr. Garima Pulliam Hemoglobin (Bld) [Mass/Vol] 15.2 g/dL Normal 14.0-18.0 [facility] Comment on above: Performed By: #### C BC ####[facility] Hprneecekm[address] [place] [address]Dr. Garima Pulliam IG # 0.02 10e3/ul Normal 0.00-0.03 [facility] Comment on above: Performed By: #### C BC ####[facility] Jrnjxuvvtb34[address] [place] [address]Dr. Garima Pulliam IG % 0.2 % Normal 0.0-0.5 [facility] Comment on above: Performed By: #### C BC ####[facility] Ysijwsjhvu[address] [place] [address]Dr. Garima Pulliam LYMPH # 2.1 103/ul Normal 1.2-3.8 [facility] Comment on above: Performed By: #### C BC ####[facility] Ulavlhcyum[address] [place] [address]Dr. Garima Pulliam Lymphocytes/100 WBC (Bld) 23.7 % Normal 20.5-60.0 [facility] Comment on above: Performed By: #### C BC ####[facility] Unpceyuadi[address] [place] [address]Dr. Garima Heraclio MANUAL DIFF REQ NO Normal [facility] Comment on above: Performed By: #### C BC ####[facility] Tblsjrhjaf[address] [place] [address]Dr. Garima Pulliam MCH (RBC) [Entitic mass] 30.4 pg Normal 25.9-34.0 [facility] Comment on above: Performed By: #### C BC ####[facility] Mphpqyzfte[address] [place] [address]Dr. Garima Heraclio MCHC (RBC) [Mass/Vol] 33.3 g/dL Normal 29.9-35.2 [facility] Comment on above: Performed By: #### C BC ####[facility] [address] [place], [place] [address]Dr. Chapisrenu Pulliam MCV (RBC) [Entitic vol] 91.4 fL Normal 80.0-94.0 [facility] Comment on above: Performed By: #### C BC ####[facility] Lkeipfdd[address] [place], [place] [address]Dr. Garima Heraclio MONO # 0.7 103/ul Normal 0.3-0.8 [facility] Comment on above: Performed By: #### C BC ####[facility] Jstcmemmnv[address] [place], [place] [address]Dr. Chapisrenu Pulliam Monocytes/100 WBC (Bld) 8.3 % Normal 1.7-12.0 [facility] Comment on above: Performed By: #### C BC ####[facility] Turolcuckn[address] [place] [address]Dr. Chapisrenu Heraclio NEUT # 5.8 103/ul Normal 1.4-6.5 [facility] Comment on above: Performed By: #### C BC ####[facility] Tgcdorwydw[address] [place], [place] [address]Dr. Garima Pulliam Neutrophils/100 WBC (Bld) 64.7 % Normal 43.0-75.0 [facility] Comment on above: Performed By: #### C BC ####[facility] Xfyyjcluqq3717 [place] [address]Dr. Garima Pulliam Platelet mean volume (Bld) [Entitic vol] 8.6 fL Critically low 9.5-13.5 [facility] Comment on above: Performed By: #### C BC ####[facility] Hzgpmmtejs1973 [place] [address]Dr. Garima Pulliam PLT 230 103/ul Normal 150-450 [facility] Comment on above: Performed By: #### C BC ####[facility] Tsblszotxa2932 [place] [address]Dr. Chapisrenu Heraclio RBC 5.00 106/ul Normal 4.70-6.10 [facility] Comment on above: Performed By: #### C BC ####[facility] Qbvnentiom2406 [place] [address]Dr. Garima Heraclio WBC 9.0 103/ul Normal 4.0-11.0 [facility] Comment on above: Performed By: #### C BC ####[facility] Vbvzmnlmro8903 [place] [address]Dr. Garima Pulliam MAGNESIUMon 04-04-2023 Magnesium [Mass/Vol] 1.8 mg/dL Normal 1.8-2.4 [facility] Comment on above: Performed By: #### M G ####[facility] Jyhipyggjr26[address] [place] [address]Dr. Chapisrenu Pulliam PROF 14(COMP METB)on 023 Albumin [Mass/Vol] 3.8 g/dL Normal 3.4-5.0 [facility] Comment on above: Performed By: #### C MP ####[facility] Trfghcfzei3076 [place] [address]Dr. Garima Pulliam Albumin/Globulin [Mass ratio] 1.2 {ratio} Normal [facility] Comment on above: Performed By: #### C MP ####[facility] Dshkvkgirv0915 [place] [address]Dr. Garima Heraclio ALP [Catalytic activity/Vol] 84 U/L Normal 46-116 [facility] Comment on above: Performed By: #### C MP ####[facility] Nvpnjpgngi1380 [place] [phone]. Garima Pulliam ALT [Catalytic activity/Vol] 31 U/L Normal 16-63 [facility] Comment on above: Performed By: #### C MP ####[facility] Iybqtuymly4096 [place] [address]Dr. Garima Pulliam Anion gap [Moles/Vol] 12.2 mmol/L Normal [facility] Comment on above: Performed By: #### C MP ####[facility] Qwwcxfsomk1834 [place] [address]Dr. Garima Pulliam AST [Catalytic activity/Vol] 23 U/L Normal 15-37 [facility] Comment on above: Performed By: #### C MP ####[facility] Jqmaghjled[address] [place], [place] [address]Dr. Garima Pulliam Bilirubin [Mass/Vol] 0.5 mg/dL Normal 0.2-1.0 [facility] Comment on above: Performed By: #### C MP ####[facility] Gbaokprocq18[address] [place], [place] [address]Dr. Garima Pulliam Calcium [Mass/Vol] 9.2 mg/dL Normal 8.5-10.1 [facility] Comment on above: Performed By: #### C MP ####[facility] Itbhcnlttz09[address] [place], [place] [address]Dr. Garima Pulliam Chloride [Moles/Vol] 103 mmol/L Normal 98-107 [facility] Comment on above: Performed By: #### C MP ####[facility] Onsiqjiltt87[address] [place] [address]Dr. Garima Pulliam CO2 [Moles/Vol] 28.5 mmol/L Normal 21.0-32.0 [facility] Comment on above: Performed By: #### C MP ####[facility] Umqucgypxq[address] [place], [place] [address]Dr. Garima Pulliam Creatinine [Mass/Vol] 0.74 mg/dL Normal 0.70-1.30 [facility] Comment on above: Performed By: #### C MP ####[facility] Ved[address]uc[address] [place] [address]Dr. Garima Pulliam EGFR-AF BELIZEAN >60 Normal >=60 [facility] Comment on above: Performed By: #### C MP ####[facility] Ozpgtsbvco8123 [place] [address]Dr. Garima Heraclio EGFR-NON AF BELIZEAN >60 Normal >=60 [facility] Comment on above: Performed By: #### C MP ####[facility] Dqgthduhgq6301 [place] [phone]. Garima Heraclio Globulin (S) [Mass/Vol] 3.1 g/dL Normal [facility] Comment on above: Performed By: #### C MP ####[facility] Gyjfubpvok[address] [place], [place] [address]Dr. Garima Heraclio Glucose [Mass/Vol] 93 mg/dL Normal 74-[address] [facility] Comment on above: Performed By: #### C MP ####[facility] Rymvbdviks[address] [place], [place] [address]Dr. Garima Heraclio Potassium [Moles/Vol] 3.7 mmol/L Normal 3.5-5.1 [facility] Comment on above: Performed By: #### C MP ####[facility] Lwzzpfobrc45[address] [place], [place] [address]Dr. Garima Heraclio Protein [Mass/Vol] 6.9 g/dL Normal 6.4-8.[address] [facility] Comment on above: Performed By: #### C MP ####[facility] Ebdqqwmboh18[address] [place], [place] [address]Dr. Garima Heraclio Sodium [Moles/Vol] 140 mmol/L Normal 136-[address] [facility] Comment on above: Performed By: #### C MP ####[facility] Wrjuegcdpx[address] [place], [place] [address]Dr. Garima Pulliam Urea nitrogen [Mass/Vol] 8.0 mg/dL Normal 7.0-18.0 [facility] Comment on above: Performed By: #### C MP ####[facility] Ntoihzpvqj4[address] [place], [place] [address]Dr. Garima Pulliam Urea nitrogen/Creatinine [Mass ratio] 10.8 mg/mg Normal [facility] Comment on above: Performed By: #### C DAVID ####[facility] Bxzmnyruht67[address] [place] [address]Dr. Garima Pulliam AMMONIAon 03-30-2023 Ammonia (P) [Moles/Vol] 11 umol/L Normal 11-32 [facility] Comment on above: Performed By: #### A MM ####[facility] Pczihmomuz[address] [place], [place] [address]Dr. Garima Pulliam CARDIAC NASH ADMITon 023 CK [Catalytic activity/Vol] 232 U/L Normal 39-308 [facility] Comment on above: Performed By: #### C NANCY HERNANDEZ ####[facility] Jeowxtudvq9206 [place] [address]Dr. Chapisrenu Pulliam CK.MB [Mass/Vol] 4.83 ng/mL Critically high <=3.60 [facility] Comment on above: Performed By: #### C NANCY HERNANDEZ ####[facility] Rwxt[address]ribzx[address] [place], [place] [address]Dr. Garima Pulliam HSTROP 10.5 pg/mL Normal 4.0-76.1 [facility] Comment on above: Result Comment: CUT- OFF POINTS HAVE BEEN ESTABLISHED BASED ON THE FOURTH UNIVERSAL DEFINITIONS OF MYOCARDIALINFARCTION. THE UPPER REFERENCE LIMIT (URL) OF TROPONIN, DEFINED THE 99TH PERCENTILE OFcTnI DISTRIBUTION IN A REFERENCE POPULATION, HAS BEEN CONFIRMED THE DECISION THRESHOLDFOR [place] DIAGNOSIS. Performed By: #### C NANCY HERNANDEZ ####[facility] Ompszhvrrr[address] [place], [place] [address]Dr. Garima Heraclio DORIS 79 ng/mL Normal 16-96 [facility] Comment on above: Performed By: #### C NANCY HERNANDEZ ####[facility] Kahadgnopd[address] [place], [place] [address]Dr. Garima Heraclio CBC AUTO DIFFon 03-30-2023 BASO # 0.0 103/ul Normal 0.0-0.1 [facility] Comment on above: Performed By: #### C BC ####[facility] Pluzkskcuw5429 [place] [phone]. Garima Pulliam Basophils/100 WBC (Bld) 0.1 % Critically low 0.2-2.0 [facility] Comment on above: Performed By: #### C BC ####[facility] Ckdpmvojcv1439 [place] [phone]. Garima Pulliam EO # 0.3 103/ul Normal 0.0-0.7 [facility] Comment on above: Performed By: #### C BC ####[facility] [address]uvv[address] [place], [place] [address]Dr. Garima Pulliam Eosinophils/100 WBC (Bld) 3.3 % Normal 0.9-7.0 [facility] Comment on above: Performed By: #### C BC ####[facility] Losmaghloi[address] [place], [place] [address]Dr. Garima Pulliam Erythrocyte distribution width (RBC) [Ratio] 13.5 % Normal 11.0-15.0 [facility] Comment on above: Performed By: #### C BC ####[facility] Mzbd[address]xbq[address] [place], [place] [address]Dr. Garima Pulliam Hematocrit (Bld) [Volume fraction] 42.9 % Normal 42.0-54.0 [facility] Comment on above: Performed By: #### C BC ####[facility] Usdxyosufl[address] [place], [place] [address]Dr. Garima Pulliam Hemoglobin (Bld) [Mass/Vol] 13.9 g/dL Critically low 14.0-18.0 [facility] Comment on above: Performed By: #### C BC ####[facility] Khkxvrfhas2143 [place] [address]Dr. Garima Pulliam IG # 0.01 10e3/ul Normal 0.00-0.03 [facility] Comment on above: Performed By: #### C BC ####[facility] Ioz[address]llyev[address] [place], [place] [address]Dr. Garima Pulliam IG % 0.1 % Normal 0.0-0.5 [facility] Comment on above: Performed By: #### C BC ####[facility] Azcvbkouzq0244 [place] [address]Dr. Garima Pulliam LYMPH # 1.7 103/ul Normal 1.2-3.8 [facility] Comment on above: Performed By: #### C BC ####[facility] Scfcsmvwel9155 [place], [place] [address]Zw. Garima Pulliam Lymphocytes/100 WBC (Bld) 22.8 % Normal 20.5-60.0 [facility] Comment on above: Performed By: #### C BC ####[facility] Dyibmjrluy3083 [place] [phone]. Garima Heraclio MANUAL DIFF REQ NO Normal [facility] Comment on above: Performed By: #### C BC ####[facility] Qmrvxfkwsy5093 [place] [address]Dr. Garima Heraclio MCH (RBC) [Entitic mass] 30.5 pg Normal 25.9-34.0 [facility] Comment on above: Performed By: #### C BC ####[facility] Ulkrkjlcyd3519 [place] [phone]. Garima Pulliam MCHC (RBC) [Mass/Vol] 32.4 g/dL Normal 29.9-35.2 [facility] Comment on above: Performed By: #### C BC ####[facility] Uhgdxxmlcf7774 [place] [address]Dr. Garima Heraclio MCV (RBC) [Entitic vol] 94.1 fL Critically high 80.0-94.0 [facility] Comment on above: Performed By: #### C BC ####[facility] Cwqvglwpcj9603 [place] [address]Dr. Garima Heraclio MONO # 0.7 103/ul Normal 0.3-0.8 [facility] Comment on above: Performed By: #### C BC ####[facility] Xbwpypxyqs2265 [place] [address]Dr. Garima Heraclio Monocytes/100 WBC (Bld) 8.6 % Normal 1.7-12.0 [facility] Comment on above: Performed By: #### C BC ####[facility] Bdeeggybge9015 [place] [address]Dr. Garima Pulliam NEUT # 4.9 103/ul Normal 1.4-6.5 [facility] Comment on above: Performed By: #### C BC ####[facility] Svdkxjcqkh2346 [place] [address]Dr. Garima Pulliam Neutrophils/100 WBC (Bld) 65.1 % Normal 43.0-75.0 [facility] Comment on above: Performed By: #### C BC ####[facility] Dtfrysubva7443 [place] [phone]. Garima Pulliam Platelet mean volume (Bld) [Entitic vol] 8.5 fL Critically low 9.5-13.5 [facility] Comment on above: Performed By: #### C BC ####[facility] Rhdykyfthj2173 [place] [address]Dr. Garima Pulliam PLT 219 103/ul Normal 150-450 [facility] Comment on above: Performed By: #### C BC ####[facility] Vnxebqvidu3969 [place] [address]Dr. Garima Pulliam RBC 4.56 106/ul Critically low 4.70-6.[address] [facility] Comment on above: Performed By: #### C BC ####[facility] Qhbodqvxqg8730 [place] [address]Dr. Garima Pulliam WBC 7.6 103/ul Normal 4.0-11.0 [facility] Comment on above: Performed By: #### C BC ####[facility] Wnvhhyyqmp5320 [place] [phone]. Garima Pulliam LACTATE/LACTIC ACIDon 2022 Lactate [Moles/Vol] 1.2 mmol/L Normal 0.4-2.0 [facility] Comment on above: Performed By: #### L ACT ####[facility] Ehzwuddayz8099 [place] [phone]. Garima Pulliam MAGNESIUMon 03-30-2023 Magnesium [Mass/Vol] 1.8 mg/dL Normal 1.8-2.4 [facility] Comment on above: Performed By: #### M G ####[facility] Ftfajmldda77[address] [place] [address]Dr. Garima Pulliam PROF 14(COMP METB)on 023 Albumin [Mass/Vol] 3.5 g/dL Normal 3.4-5.0 [facility] Comment on above: Performed By: #### C DAVID, CMAANA ROSA ####[facility] Tbdgzbbmnd8974 [place] [address]Dr. Garima Pulliam Albumin/Globulin [Mass ratio] 1.2 {ratio} Normal [facility] Comment on above: Performed By: #### C DAVID, CMAANA ROSA ####[facility] Kflwxuqjsk9561 [place] [address]Dr. Garima Pulliam ALP [Catalytic activity/Vol] 85 U/L Normal 46-116 [facility] Comment on above: Performed By: #### C DAVID, CMAANA ROSA ####[facility] [address]ldotaxoh[address] [place], [place] [address]Dr. Garima Pulliam ALT [Catalytic activity/Vol] 29 U/L Normal 16-63 [facility] Comment on above: Performed By: #### C DAVID, CMAANA ROSA ####[facility] Qxvpfgnuuo3307 [place] [address]Dr. Garima Pulliam Anion gap [Moles/Vol] 8.0 mmol/L Normal [facility] Comment on above: Performed By: #### C DAVID, CMAANA ROSA ####[facility] Jqxfzuxgic0723 [place] [address]Dr. Garima Pulliam AST [Catalytic activity/Vol] 18 U/L Normal 15-37 [facility] Comment on above: Performed By: #### C DAVID, CMADM ####[facility] Lezhwikzzq6424 [place] [address]Dr. Garima Pulliam Bilirubin [Mass/Vol] 0.4 mg/dL Normal 0.2-1.0 [facility] Comment on above: Performed By: #### C DAVID, CMADM ####[facility] Xhmfqdyjgd0909 [place] [address]Dr. Garima Pulliam Calcium [Mass/Vol] 8.8 mg/dL Normal 8.5-10.1 [facility] Comment on above: Performed By: #### C DAVID, NANCY ####[facility] Rgfwikpmuy1032 [place] [address]Dr. Chapisrenu Pulliam Chloride [Moles/Vol] 108 mmol/L Critically high 98-107 [facility] Comment on above: Performed By: #### C DAVID, NANCY ####[facility] Tctnbhsnya5520 [place] [address]Dr. Garima Pulliam CO2 [Moles/Vol] 29.6 mmol/L Normal 21.0-32.0 [facility] Comment on above: Performed By: #### C NANCY HERNANDEZ ####[facility] [address]ttliahqyx[address] [place], [place] [address]Dr. Garima Pulliam Creatinine [Mass/Vol] 0.77 mg/dL Normal 0.70-1.30 [facility] Comment on above: Performed By: #### C NANCY HERNANDEZ ####[facility] Ebjwgcynnj[address] [place], [place] [address]Dr. Garima Heraclio EGFR-AF BELIZEAN >60 Normal >=60 [facility] Comment on above: Performed By: #### C NANCY HERNANDEZ ####[facility] Efsdyjkylq[address] [place], [place] [address]Dr. Garima Heraclio EGFR-NON AF BELIZEAN >60 Normal >=60 [facility] Comment on above: Performed By: #### C NANCY HERNANDEZ ####[facility] Wutwmuagys7968 [place] [address]Dr. Garima Pulliam Globulin (S) [Mass/Vol] 2.8 g/dL Normal [facility] Comment on above: Performed By: #### C NANCY HERNANDEZ ####[facility] Tpfkycngmd5180 [place] [address]Dr. Garima Pulliam Glucose [Mass/Vol] 207 mg/dL Critically high 74-106 [facility] Comment on above: Performed By: #### C NANCY HERNANDEZ ####[facility] [address]rmrrewzoc[address] [place], [place] [address]Dr. Garima Pulliam Potassium [Moles/Vol] 4.6 mmol/L Normal 3.5-5.1 [facility] Comment on above: Performed By: #### C DAVID, NANCY ####[facility] Snsekibgud8160 [place] [address]Dr. Garima Pulliam Protein [Mass/Vol] 6.3 g/dL Critically low 6.4-8.2 [facility] Comment on above: Performed By: #### C DAVID, NANCY ####[facility] Tlzknhmkqi0403 [place] [address]Dr. Garima Pulliam Sodium [Moles/Vol] 141 mmol/L Normal 136-145 [facility] Comment on above: Performed By: #### C DAVID, NANCY ####[facility] Odnsipodzb2186 [place] [address]Dr. Garima Pulliam Urea nitrogen [Mass/Vol] 9.0 mg/dL Normal 7.0-18.0 [facility] Comment on above: Performed By: #### C DAVID, NANCY ####[facility] Eftsjfesdw9545 [place] [address]Dr. Garima Pulliam Urea nitrogen/Creatinine [Mass ratio] 11.7 mg/mg Normal [facility] Comment on above: Performed By: #### C DAVID, NANCY ####[facility] Bbtwhfdksh3033 [place] [address]Dr. Garima Pulliam XR CHEST 1 Von 03-30-2023 XR CHEST 1 V Normal [facility] BNPon 03-27-2023 Natriuretic peptide B (Bld) [Mass/Vol] 251.0 pg/mL Normal <=900.0 [facility] Comment on above: Performed By: #### C MP, BNP, LIPID ####[facility] Dfqojijyxm4648 [place] [address]Dr. Garima Pulliam GLYCOHEMOGLOBIN A1Con 2022 ADA RECOMMENDATION SEE BELOW Normal [facility] Comment on above: Result Comment: ADA RECOMMENDED LIMIT 4.0 - 6.0 ADA THERAPEUTIC TARGET < 7.0 ACTION SUGGESTED > 7.0 Performed By: #### A 1C ####[facility] Exfinenucp6868 [place] [address]Dr. Garima Pulliam Glucose [Mass/Vol] 180 mg/dL Normal [facility] Comment on above: Performed By: #### A 1C ####[facility] [address]hsnzelcfy[address] [place], [place] [address]Dr. Chapisrenu Pulliam HbA1c (Bld) [Mass fraction] 7.9 % Critically high 4.5-6.2 [facility] Comment on above: Performed By: #### A 1C ####[facility] [address]ooibjrwzz[address] [place], [place] [address]Dr. Garima Pulliam HEMOGRAM AND PLATELon 2022 Hematocrit (Bld) [Volume fraction] 45.7 % Normal 42.0-54.0 [facility] Comment on above: Performed By: #### H H ####[facility] Umhvwpvbhd[address] [place], [place] [address]Dr. Garima Pulliam Hemoglobin (Bld) [Mass/Vol] 15.1 g/dL Normal 14.0-18.0 [facility] Comment on above: Performed By: #### H H ####[facility] Zcmkokuxlx[address] [place], [place] [address]Dr. Garima Pulliam MCH (RBC) [Entitic mass] 30.0 pg Normal 25.9-34.0 [facility] Comment on above: Performed By: #### H H ####[facility] [address]wyjrmksvc[address] [place], [place] [address]Dr. Garima Pulliam MCHC (RBC) [Mass/Vol] 33.0 g/dL Normal 29.9-35.2 [facility] Comment on above: Performed By: #### H H ####[facility] Vekuvdtfzd[address] [place], [place] [address]Dr. Garima Pulliam MCV (RBC) [Entitic vol] 90.7 fL Normal 80.0-94.0 [facility] Comment on above: Performed By: #### H H ####[facility] Bwfyngrenl[address] [place], [place] [address]Dr. Garima Pulliam PLT 222 103/ul Normal 150-450 [facility] Comment on above: Performed By: #### H H ####[facility] Psczlowvbp7730 [place] [phone]. Garima Pulliam RBC 5.04 106/ul Normal 4.70-6.10 [facility] Comment on above: Performed By: #### H H ####[facility] Feqmegbngw5011 [place] [address]Dr. Garima Pulliam WBC 8.7 103/ul Normal 4.0-11.0 [facility] Comment on above: Performed By: #### H H ####[facility] Zqszcvfrgu6943 [place] [phone]. Garima Pulliam LIPID PROFILEon 03-27-2023 CHOL-HDL RATIO NORM SEE BELOW Normal [facility] Comment on above: Result Comment: 3.3 - 4.4 LOW RISK 4.4 - 7.1 AVERAGE RISK 7.1 - 11.0 MODERATE RISK >11.0 HIGH RISK Performed By: #### C MP, BNP, LIPID ####[facility] Oqynwcjvbf6996 [place] [address]Dr. Garima Pulliam Cholesterol [Mass/Vol] 113 mg/dL Normal <=200 [facility] Comment on above: Performed By: #### C MP, BNP, LIPID ####[facility] [address]om[address] [place] [address]Dr. Garima Pulliam Cholesterol in HDL [Mass/Vol] 51 mg/dL Normal 40-60 [facility] Comment on above: Performed By: #### C MP, BNP, LIPID ####[facility] Tlqppdkeaq[address] [place] [address]Dr. Garima Pulliam Cholesterol in LDL [Mass/Vol] 49.8 mg/dL Normal [facility] Comment on above: Performed By: #### C MP, BNP, LIPID ####[facility] Spefnsybvi[address] [place] [address]Dr. Garima Pulliam Cholesterol.total/Cho lesterol in HDL [Mass ratio] 2.2 {ratio} Normal [facility] Comment on above: Performed By: #### C MP, BNP, LIPID ####[facility] Bztbzenlhb[address] [place] [address]Dr. Garima Pulliam HDL NORMAL > or = 60 mg/dl - LOW CARDIOVASCULAR RISK <40 mg/dl - HIGH CARDIOVASCULAR RISK Normal [facility] Comment on above: Performed By: #### C MP, BNP, LIPID ####[facility] Azrhantoxq[address] [place] [address]Dr. Garima Pulliam LDL CALC NORMAL SEE BELOW Normal [facility] Comment on above: Result Comment: <100 mg/dl OPTIMAL 100 - 129 mg/dl NEAR OR ABOVE OPTIMAL 130 - 159 mg/dl BORDERLINE HIGH 160 - 189 mg/dl HIGH >190 mg/dl VERY HIGH Performed By: #### C MP, BNP, LIPID ####[facility] Qqovnubrnh64[address] [place] [address]Dr. Garima Pulliam Triglyceride [Mass/Vol] 61 mg/dL Normal <=150 [facility] Comment on above: Performed By: #### C MP, BNP, LIPID ####[facility] Vwnvssfzeh[address] [place] [address]Dr. Garima Pulliam VLDL CALC 12.2 mg/dL Normal [facility] Comment on above: Performed By: #### C MP, BNP, LIPID ####[facility] Tmnakbhpnr[address] [place] [address]Dr. Garima Pulliam PROF 14(COMP METB)on 023 Albumin [Mass/Vol] 3.5 g/dL Normal 3.4-5.0 [facility] Comment on above: Performed By: #### C MP, BNP, LIPID ####[facility] Llwclcwdjy0460 [place] [address]Dr. Garima Pulliam Albumin/Globulin [Mass ratio] 1.2 {ratio} Normal [facility] Comment on above: Performed By: #### C MP, BNP, LIPID ####[facility] Ljexywaxgx[address] [place] [address]Dr. Garima Pulliam ALP [Catalytic activity/Vol] 82 U/L Normal 46-116 [facility] Comment on above: Performed By: #### C MP, BNP, LIPID ####[facility] Evuyvclpdf6708 [place] [address]Dr. Garima Pulliam ALT [Catalytic activity/Vol] 33 U/L Normal 16-63 [facility] Comment on above: Performed By: #### C MP, BNP, LIPID ####[facility] Ximsbukzpm2163 [place] [address]Dr. Garima Pulliam Anion gap [Moles/Vol] 9.9 mmol/L Normal [facility] Comment on above: Performed By: #### C MP, BNP, LIPID ####[facility] Fhvmahplcj5063 [place] [address]Dr. Garima Pulliam AST [Catalytic activity/Vol] 24 U/L Normal 15-37 [facility] Comment on above: Performed By: #### C MP, BNP, LIPID ####[facility] Qsmvnjiizy3111 [place] [address]Dr. Garima Pulliam Bilirubin [Mass/Vol] 0.6 mg/dL Normal 0.2-1.0 [facility] Comment on above: Performed By: #### C MP, BNP, LIPID ####[facility] Ttmnvhrnfb5970 [place] [address]Dr. Garima Pulliam Calcium [Mass/Vol] 9.2 mg/dL Normal 8.5-10.1 [facility] Comment on above: Performed By: #### C MP, BNP, LIPID ####[facility] Rbugwcdzbd8802 [place] [address]Dr. Garima Pulliam Chloride [Moles/Vol] 106 mmol/L Normal 98-107 [facility] Comment on above: Performed By: #### C MP, BNP, LIPID ####[facility] Hqcndghmck7154 [place] [address]Dr. Garima Pulliam CO2 [Moles/Vol] 32.3 mmol/L Critically high 21.0-32.0 [facility] Comment on above: Performed By: #### C MP, BNP, LIPID ####[facility] Bhbzxvrtzc6885 [place] [address]Dr. Garima Pulliam Creatinine [Mass/Vol] 0.70 mg/dL Normal 0.70-1.30 [facility] Comment on above: Performed By: #### C MP, BNP, LIPID ####[facility] Pckhtwomlz33[address] [place] [id number]. Garima Pulliam EGFR-AF BELIZEAN >60 Normal >=60 [facility] Comment on above: Performed By: #### C MP, BNP, LIPID ####[facility] Bgisosetph8155 [place] [phone]. Garima Pulliam EGFR-NON AF BELIZEAN >60 Normal >=60 [facility] Comment on above: Performed By: #### C MP, BNP, LIPID ####[facility] Ytdtgawftg4104 [place] [address]Dr. Garima Pulliam Globulin (S) [Mass/Vol] 2.9 g/dL Normal [facility] Comment on above: Performed By: #### C MP, BNP, LIPID ####[facility] Rnxtrujijh1205 [place] [address]Dr. Garima Pulliam Glucose [Mass/Vol] 111 mg/dL Critically high 74-106 [facility] Comment on above: Performed By: #### C MP, BNP, LIPID ####[facility] Neffkduams9290 [place] [address]Dr. Garima Pulliam Potassium [Moles/Vol] 4.2 mmol/L Normal 3.5-5.1 [facility] Comment on above: Performed By: #### C MP, BNP, LIPID ####[facility] Zeqobdctah0602 [place] [address]Dr. Garima Pulliam Protein [Mass/Vol] 6.4 g/dL Normal 6.4-8.2 [facility] Comment on above: Performed By: #### C MP, BNP, LIPID ####[facility] Rdmevdhbon6222 [place] [address]Dr. Garima Pulliam Sodium [Moles/Vol] 144 mmol/L Normal 136-145 [facility] Comment on above: Performed By: #### C MP, BNP, LIPID ####[facility] Xukjarbefd0360 [place] [address]Dr. Garima Pulliam Urea nitrogen [Mass/Vol] 7.0 mg/dL Normal 7.0-18.0 [facility] Comment on above: Performed By: #### C MP, BNP, LIPID ####[facility] Vnigmsbmeq[address] [place], [place] [address]Dr. Garima Pulliam Urea nitrogen/Creatinine [Mass ratio] 10.0 mg/mg Normal [facility] Comment on above: Performed By: #### C MP, BNP, LIPID ####[facility] Qtcpzpkjdt[address] [place], [place] [address]Dr. Garima Pulliam BNPon 03-22-2023 Natriuretic peptide B (Bld) [Mass/Vol] 103.0 pg/mL Normal <=900.0 [facility] Comment on above: Performed By: #### B EDUCATION TRAINER, BMP ####[facility] Neloecqciw[address] [place], [place] [address]Dr. Garima Pulliam CBC AUTO DIFFon 03-22-2023 BASO # 0.0 103/ul Normal 0.0-0.1 [facility] Comment on above: Performed By: #### C BC ####[facility] Sqeazgpfpz[address] [place], [place] [address]Dr. Garima Heraclio Basophils/100 WBC (Bld) 0.3 % Normal 0.2-2.0 [facility] Comment on above: Performed By: #### C BC ####[facility] Whuzlmsoau[address] [place], [place] [address]Dr. Garima Pulliam EO # 0.2 103/ul Normal 0.0-0.7 [facility] Comment on above: Performed By: #### C BC ####[facility] Zofqeclcjr17[address] [place], [place] [address]Dr. Garima Pulliam Eosinophils/100 WBC (Bld) 2.2 % Normal 0.9-7.0 [facility] Comment on above: Performed By: #### C BC ####[facility] Xmtnwuyams[address] [place], [place] [address]Dr. Garima Pulliam Erythrocyte distribution width (RBC) [Ratio] 13.2 % Normal 11.0-15.0 [facility] Comment on above: Performed By: #### C BC ####[facility] Tjxfihuxfv1277 [place] [phone]. Garima Pulliam Hematocrit (Bld) [Volume fraction] 43.4 % Normal 42.0-54.0 [facility] Comment on above: Performed By: #### C BC ####[facility] Nbaewycjad4278 [place] [address]Dr. Garima Heraclio Hemoglobin (Bld) [Mass/Vol] 14.3 g/dL Normal 14.0-18.0 [facility] Comment on above: Performed By: #### C BC ####[facility] Ctguikyjct6996 [place] [address]Dr. Garima Pulliam IG # 0.02 10e3/ul Normal 0.00-0.03 [facility] Comment on above: Performed By: #### C BC ####[facility] Bxlommixrh7347 [place] [address]Dr. Garima Pulliam IG % 0.3 % Normal 0.0-0.5 [facility] Comment on above: Performed By: #### C BC ####[facility] Weulevjsqw2994 [place] [address]Dr. Chapisrenu Pulliam LYMPH # 2.0 103/ul Normal 1.2-3.8 [facility] Comment on above: Performed By: #### C BC ####[facility] Mvbmhkpaov8047 [place] [address]Dr. Chapisrenu Pulliam Lymphocytes/100 WBC (Bld) 24.8 % Normal 20.5-60.0 [facility] Comment on above: Performed By: #### C BC ####[facility] Vmtpetzbol0604 [place] [address]Dr. Chapisrenu Pulliam MANUAL DIFF REQ NO Normal [facility] Comment on above: Performed By: #### C BC ####[facility] Tccnpynyuq9355 [place] [address]Dr. Garima Heraclio MCH (RBC) [Entitic mass] 30.0 pg Normal 25.9-34.0 [facility] Comment on above: Performed By: #### C BC ####[facility] [address]qbixeqw[address] [place], [place] [address]Dr. Garima Pulliam MCHC (RBC) [Mass/Vol] 32.9 g/dL Normal 29.9-35.2 [facility] Comment on above: Performed By: #### C BC ####[facility] Lfqwbqqtpi3377 [place] [phone]. Garima Pulliam MCV (RBC) [Entitic vol] 91.0 fL Normal 80.0-94.0 [facility] Comment on above: Performed By: #### C BC ####[facility] Bryrmiwboj6358 [place] [phone]. Garima Heraclio MONO # 0.8 103/ul Normal 0.3-0.8 [facility] Comment on above: Performed By: #### C BC ####[facility] Bsipwcxdty4982 [place] [address]Dr. Chapisrenu Pulliam Monocytes/100 WBC (Bld) 9.7 % Normal 1.7-12.0 [facility] Comment on above: Performed By: #### C BC ####[facility] Iveiopnrva5573 [place] [address]Dr. Garima Pulliam NEUT # 4.9 103/ul Normal 1.4-6.5 [facility] Comment on above: Performed By: #### C BC ####[facility] Fagffhjwsa8349 [place] [phone]. Garima Heraclio Neutrophils/100 WBC (Bld) 62.7 % Normal 43.0-75.0 [facility] Comment on above: Performed By: #### C BC ####[facility] Mvoewmddfp7459 [place] [phone]. Garima Heraclio Platelet mean volume (Bld) [Entitic vol] 8.8 fL Critically low 9.5-13.5 [facility] Comment on above: Performed By: #### C BC ####[facility] Mcntgzsraq5082 [place] [phone]. Garima Heraclio PLT 198 103/ul Normal 150-450 [facility] Comment on above: Performed By: #### C BC ####[facility] Qokfjwutor1633 [place] [phone]. Garima Heraclio RBC 4.77 106/ul Normal 4.70-6.10 [facility] Comment on above: Performed By: #### C BC ####[facility] Xffwpoccxf9818 [place] [phone]. Garima Heraclio WBC 7.9 103/ul Normal 4.0-11.0 [facility] Comment on above: Performed By: #### C BC ####[facility] Lhnnzevmsk2518 [place] [phone]. Garima Heraclio D-DIMERon 03-22-2023 D-DIMER 0.85 mg/L FEU Critically high <=0.[address] [facility] Comment on above: Performed By: #### D DIM ####[facility] Oepxaeqaql9362 [place] [address]Dr. Garima Pulliam D-DIMER COMMENTS SEE BELOW Normal [facility] Comment on above: Result [...] By: #### D DIM ####[facility] P[address]cawrekr[address] [place], [place] [address]Dr. Garima Pulliam PROF CHEM 8 (BAS METB)on Anion gap [Moles/Vol] 6.9 mmol/L Normal [facility] Comment on above: Performed By: #### B EDUCATION TRAINER, BMP ####[facility] Qkudxlcqnl1897 [place] [address]Dr. Garima Pulliam Calcium [Mass/Vol] 8.9 mg/dL Normal 8.5-10.[address] [facility] Comment on above: Performed By: #### B EDUCATION TRAINER, BMP ####[facility] Bwhnrimbzz4647 [place] [address]Dr. Garima Pulliam Chloride [Moles/Vol] 101 mmol/L Normal 98-107 [facility] Comment on above: Performed By: #### B EDUCATION TRAINER, BMP ####[facility] Nupjredpds[address] [place], [place] [address]Dr. Chapisrenu Heraclio CO2 [Moles/Vol] 30.7 mmol/L Normal 21.0-32.0 [facility] Comment on above: Performed By: #### B EDUCATION TRAINER, BMP ####[facility] Xfftiyqkmj[address] [place], [place] [address]Dr. Garima Pulliam Creatinine [Mass/Vol] 0.82 mg/dL Normal 0.70-1.30 [facility] Comment on above: Performed By: #### B EDUCATION TRAINER, BMP ####[facility] Pgvkxipqpl2[address] [place], [place] [address]Dr. Garima Pulliam EGFR-AF BELIZEAN >60 Normal >=60 [facility] Comment on above: Performed By: #### B EDUCATION TRAINER, BMP ####[facility] Scmjpihojr26[address] [place], [place] [address]Dr. Chapisrenu Heraclio EGFR-NON AF BELIZEAN >60 Normal >=60 [facility] Comment on above: Performed By: #### B EDUCATION TRAINER, BMP ####[facility] Jbourlocee04[address] [place], [place] [address]Dr. Garima Pulliam Glucose [Mass/Vol] 339 mg/dL Critically high 74-106 [facility] Comment on above: Performed By: #### B EDUCATION TRAINER, BMP ####[facility] Qhtivnedxu79[address] [place], [place] [address]Dr. Garima Pulliam Potassium [Moles/Vol] 3.6 mmol/L Normal 3.5-5.1 [facility] Comment on above: Performed By: #### B EDUCATION TRAINER, BMP ####[facility] Anrynzdmbj2[address] [place], [place] [address]Dr. Garima Pulliam Sodium [Moles/Vol] 135 mmol/L Critically low 136-145 [facility] Comment on above: Performed By: #### B EDUCATION TRAINER, BMP ####[facility] Suunpirpce9[address] [place], [place] [address]Dr. Garima Pulliam Urea nitrogen [Mass/Vol] 11.0 mg/dL Normal 7.0-18.0 [facility] Comment on above: Performed By: #### B EDUCATION TRAINER, BMP ####[facility] Ncvqhezxns[address] [place], [place] [address]Dr. Garima Pulliam Urea nitrogen/Creatinine [Mass ratio] 13.4 mg/mg Normal [facility] Comment on above: Performed By: #### B EDUCATION TRAINER, BMP ####[facility] Zgurmrxzzw16[address] [place], [place] [address]Dr. Garima Pulliam US VERONICA DOP LEG BILon 023 US VERONICA DOP LEG BENOIT Normal [facility] BNPon 03-18-2023 Natriuretic peptide B (Bld) [Mass/Vol] 226.0 pg/mL Normal <=900.0 [facility] Comment on above: Performed By: #### B EDUCATION TRAINER, BMP ####[facility] Rtfjkuaqss4[address] [place], [place] [address]Dr. Garima Pulliam CBC AUTO DIFFon 03-18-2023 BASO # 0.0 103/ul Normal 0.0-0.1 [facility] Comment on above: Performed By: #### C BC ####[facility] Eorawxegda04[address] [place], [place] [address]Dr. Garima Heraclio Basophils/100 WBC (Bld) 0.2 % Normal 0.2-2.0 [facility] Comment on above: Performed By: #### C BC ####[facility] Wohjwzkhcz[address] [place], [place] [address]Dr. Garima Pulliam EO # 0.3 103/ul Normal 0.0-0.7 [facility] Comment on above: Performed By: #### C BC ####[facility] Fxnufgpyhm6[address] [place], [place] [address]Dr. Garima Heraclio Eosinophils/100 WBC (Bld) 2.5 % Normal 0.9-7.0 [facility] Comment on above: Performed By: #### C BC ####[facility] Cdanvpmssp[address] [place], [place] [address]Dr. Garima Heraclio Erythrocyte distribution width (RBC) [Ratio] 13.2 % Normal 11.0-15.0 [facility] Comment on above: Performed By: #### C BC ####[facility] Khckyfjbxg9220 [place] [address]DrAdalberto Pulliam Hematocrit (Bld) [Volume fraction] 45.8 % Normal 42.0-54.0 [facility] Comment on above: Performed By: #### C BC ####[facility] Mxqvhyfdvo8271 [place] [address]DrAdalberto Pulliam Hemoglobin (Bld) [Mass/Vol] 15.3 g/dL Normal 14.0-18.0 [facility] Comment on above: Performed By: #### C BC ####[facility] Rblnazpahp[address] [place], [place] [address]DrAdalberto Pulliam IG # 0.02 10e3/ul Normal 0.00-0.03 [facility] Comment on above: Performed By: #### C BC ####[facility] Enznliwqmn[address] [place], [place] [address]DrAdalberto Pulliam IG % 0.2 % Normal 0.0-0.5 [facility] Comment on above: Performed By: #### C BC ####[facility] Rinofsmmtf7[address] [place], [place] [address]DrAdalberto Pulliam LYMPH # 1.8 103/ul Normal 1.2-3.8 [facility] Comment on above: Performed By: #### C BC ####[facility] Xbpjdbfvba16[address] [place], [place] [address]DrAdalberto Pulliam Lymphocytes/100 WBC (Bld) 18.3 % Critically low 20.5-60.0 [facility] Comment on above: Performed By: #### C BC ####[facility] Wdvcfpwuhg7[address] [place], [place] [address]DrAdalberto Pulliam MANUAL DIFF REQ NO Normal [facility] Comment on above: Performed By: #### C BC ####[facility] Lyagmvdqir9571 [place] [address]DrAdalberto Pulliam MCH (RBC) [Entitic mass] 30.5 pg Normal 25.9-34.0 [facility] Comment on above: Performed By: #### C BC ####[facility] Eotjqdmgmx2789 [place] [address]DrAdalberto Pulliam MCHC (RBC) [Mass/Vol] 33.4 g/dL Normal 29.9-35.2 [facility] Comment on above: Performed By: #### C BC ####[facility] Bjrmnszpdk3119 [place] [address]DrAdalberto Pulliam MCV (RBC) [Entitic vol] 91.2 fL Normal 80.0-94.0 [facility] Comment on above: Performed By: #### C BC ####[facility] Mhcrmzvreo[address] [place], [place] [address]DrAdalberto Pulliam MONO # 0.8 103/ul Normal 0.3-0.8 [facility] Comment on above: Performed By: #### C BC ####[facility] Qwsolagiax58[address] [place], [place] [address]DrAdalberto Pulliam Monocytes/100 WBC (Bld) 7.6 % Normal 1.7-12.0 [facility] Comment on above: Performed By: #### C BC ####[facility] Ubfcjsjzbz[address] [place], [place] [address]DrAdalberto Pulliam NEUT # 7.0 103/ul Critically high 1.4-6.[address] [facility] Comment on above: Performed By: #### C BC ####[facility] Wavdqsyngx[address] [place], [place] [address]DrAdalberto Pulliam Neutrophils/100 WBC (Bld) 71.2 % Normal 43.0-75.0 [facility] Comment on above: Performed By: #### C BC ####[facility] [address]xkfizslv[address] [place], [place] [address]DrAdalberto Pulliam Platelet mean volume (Bld) [Entitic vol] 8.9 fL Critically low 9.5-13.5 [facility] Comment on above: Performed By: #### C BC ####[facility] Ahypyjpeey[address] [place], [place] [address]DrAdalberto Pulliam PLT 217 103/ul Normal 150-450 [facility] Comment on above: Performed By: #### C BC ####[facility] Gcgxurcwkv1882 [place] [address]Dr. Garima Heraclio RBC 5.02 106/ul Normal 4.70-6.10 [facility] Comment on above: Performed By: #### C BC ####[facility] Uqsdswzkfq[address] [place], [place] [address]Dr. Garima Pulliam WBC 9.8 103/ul Normal 4.0-11.0 [facility] Comment on above: Performed By: #### C BC ####[facility] Oattoghczj[address] [place], [place] [address]Dr. Garima Heraclio CRPon 03-18-2023 CRP 0.1 mg/dL Normal <=1.0 [facility] Comment on above: Performed By: #### C RP ####[facility] Ajhmfaoatc[address] [place], [place] [address]Dr. Garima Heraclio PROF CHEM 8 (BAS METB)on Anion gap [Moles/Vol] 10.4 mmol/L Normal [facility] Comment on above: Performed By: #### B EDUCATION TRAINER, BMP ####[facility] Xpltqabmvj[address] [place], [place] [address]Dr. Garima Heraclio Calcium [Mass/Vol] 8.8 mg/dL Normal 8.5-10.1 [facility] Comment on above: Performed By: #### B EDUCATION TRAINER, BMP ####[facility] Eneelpwgaz[address] [place], [place] [address]Dr. Garima Heraclio Chloride [Moles/Vol] 97 mmol/L Critically low 98-107 [facility] Comment on above: Performed By: #### B EDUCATION TRAINER, BMP ####[facility] Ugbeokriuo09[address] [place], [place] [address]Dr. Garima Pulliam CO2 [Moles/Vol] 31.2 mmol/L Normal 21.0-32.0 [facility] Comment on above: Performed By: #### B EDUCATION TRAINER, BMP ####[facility] Erjjaaeedl[address] [place], [place] [address]Dr. Garima Pulliam Creatinine [Mass/Vol] 0.91 mg/dL Normal 0.70-1.30 [facility] Comment on above: Performed By: #### B EDUCATION TRAINER, BMP ####[facility] Mbukypkgof1844 [place] [address]Dr. Garima Pulliam EGFR-AF BELIZEAN >60 Normal >=60 [facility] Comment on above: Performed By: #### B EDUCATION TRAINER, BMP ####[facility] Ntsvggdzxq9940 [place] [id number]. Garima Pulliam EGFR-NON AF BELIZEAN >60 Normal >=60 [facility] Comment on above: Performed By: #### B EDUCATION TRAINER, BMP ####[facility] Uziuxnygwj0019 [place] [address]Dr. Garima Pulliam Glucose [Mass/Vol] 315 mg/dL Critically high 74-106 T [facility] Comment on above: Performed By: #### B EDUCATION TRAINER, BMP ####[facility] Ijcmudgcyq4738 [place] [address]Dr. Garima Pulliam Potassium [Moles/Vol] 3.6 mmol/L Normal 3.5-5.1 [facility] Comment on above: Performed By: #### B EDUCATION TRAINER, BMP ####[facility] Ppbdiqqlrd1205 [place] [address]Dr. Garima Pulliam Sodium [Moles/Vol] 135 mmol/L Critically low 136-145 Th [facility] Comment on above: Performed By: #### B EDUCATION TRAINER, BMP ####[facility] Rodbdzzush7389 [place] [address]Dr. Garima Pulliam Urea nitrogen [Mass/Vol] 7.0 mg/dL Normal 7.0-18.0 [facility] Comment on above: Performed By: #### B EDUCATION TRAINER, BMP ####[facility] Brzmbtbiyt9344 [place] [address]Dr. Garima Pulliam Urea nitrogen/Creatinine [Mass ratio] 7.7 mg/mg Normal [facility] Comment on above: Performed By: #### B EDUCATION TRAINER, BMP ####[facility] Rjbpjhnzty5380 [place] [address]Dr. Garima Pulliam SED RATE WESTERGRENon 2022 SED RATE 8 mm/hr Normal <=20 [facility] Comment on above: Performed By: #### S EDR ####[facility] C[address]cjesmyvd[address] [place], [place] [address]Dr. Garima Pulliam BNPon 03-16-2023 Natriuretic peptide B (Bld) [Mass/Vol] 241.0 pg/mL Normal <=900.0 [facility] Comment on above: Performed By: #### B EDUCATION TRAINER, BMP, HSTROPN ####[facility] Shsvohcfbp[address] [place], [place] [address]Dr. Garima Heraclio CBC AUTO DIFFon 03-16-2023 BASO # 0.0 103/ul Normal 0.0-0.1 [facility] Comment on above: Performed By: #### C BC ####[facility] [address]flkxkiab[address] [place], [place] [address]Dr. Chapisrenu Pulliam Basophils/100 WBC (Bld) 0.2 % Normal 0.2-2.0 [facility] Comment on above: Performed By: #### C BC ####[facility] Giuyfxhvvd[address] [place], [place] [address]Dr. Garima Pulliam EO # 0.2 103/ul Normal 0.0-0.7 [facility] Comment on above: Performed By: #### C BC ####[facility] [address]hsvjzvml[address] [place], [place] [address]Dr. Chapisrenu Pulliam Eosinophils/100 WBC (Bld) 2.7 % Normal 0.9-7.0 [facility] Comment on above: Performed By: #### C BC ####[facility] [address]qp[address] [place], [place] [address]Dr. Garima Pulliam Erythrocyte distribution width (RBC) [Ratio] 13.1 % Normal 11.0-15.0 [facility] Comment on above: Performed By: #### C BC ####[facility] Ewprfzwwva[address] [place], [place] [address]Dr. Garima Pulliam Hematocrit (Bld) [Volume fraction] 41.8 % Critically low 42.0-54.0 [facility] Comment on above: Performed By: #### C BC ####[facility] [address]hemnzhuet[address] [place] [address]Dr. Garima Pulliam Hemoglobin (Bld) [Mass/Vol] 14.0 g/dL Normal 14.0-18.0 [facility] Comment on above: Performed By: #### C BC ####[facility] Imihzhmexl[address] [place] [address]Dr. Garima Pulliam IG # 0.03 10e3/ul Normal 0.00-0.03 [facility] Comment on above: Performed By: #### C BC ####[facility] Lfdknlywco5715 [place] [address]Dr. Garima Pulliam IG % 0.3 % Normal 0.0-0.5 [facility] Comment on above: Performed By: #### C BC ####[facility] [address]mrq[address] [place], [place] [address]Dr. Chapisrenu Pulliam LYMPH # 2.1 103/ul Normal 1.2-3.8 [facility] Comment on above: Performed By: #### C BC ####[facility] Iszyhnxfjm[address] [place], [place] [address]Dr. Chapisrenu Pulliam Lymphocytes/100 WBC (Bld) 24.2 % Normal 20.5-60.0 [facility] Comment on above: Performed By: #### C BC ####[facility] [address]abyvscf[address] [place] [address]Dr. Garima Pulliam MANUAL DIFF REQ NO Normal [facility] Comment on above: Performed By: #### C BC ####[facility] Bbjxmrygxt46[address] [place] [address]Dr. Garima Pulliam MCH (RBC) [Entitic mass] 30.2 pg Normal 25.9-34.0 [facility] Comment on above: Performed By: #### C BC ####[facility] Ldmerfwspf7660 [place] [address]Dr. Garima Pulliam MCHC (RBC) [Mass/Vol] 33.5 g/dL Normal 29.9-35.2 [facility] Comment on above: Performed By: #### C BC ####[facility] Iuhepdzkcr9021 [place] [phone]. Garima Pulliam MCV (RBC) [Entitic vol] 90.1 fL Normal 80.0-94.0 [facility] Comment on above: Performed By: #### C BC ####[facility] Xbmahyjbwr7592 [place] [phone]. Garima Pulliam MONO # 0.6 103/ul Normal 0.3-0.8 [facility] Comment on above: Performed By: #### C BC ####[facility] Uadlazatzh[address] [place] [address]Dr. Garima Heraclio Monocytes/100 WBC (Bld) 7.4 % Normal 1.7-12.0 [facility] Comment on above: Performed By: #### C BC ####[facility] Ysgdscepnd[address] [place], [place] [address]Dr. Garima Pulliam NEUT # 5.6 103/ul Normal 1.4-6.5 [facility] Comment on above: Performed By: #### C BC ####[facility] Gsoiqwfxkg[address] [place], [place] [address]Dr. Garima Heraclio Neutrophils/100 WBC (Bld) 65.2 % Normal 43.0-75.0 [facility] Comment on above: Performed By: #### C BC ####[facility] Zvivrjoyqo8605 [place] [phone]. Garima Heraclio Platelet mean volume (Bld) [Entitic vol] 8.7 fL Critically low 9.5-13.5 [facility] Comment on above: Performed By: #### C BC ####[facility] [address]ctpwfir[address] [place], [place] [address]Dr. Garima Heraclio PLT 195 103/ul Normal 150-450 [facility] Comment on above: Performed By: #### C BC ####[facility] Vyzhrgsfwq5667 [place] [phone]. Garima Pulliam RBC 4.64 106/ul Critically low 4.70-6.[address] [facility] Comment on above: Performed By: #### C BC ####[facility] Pvqtwaaoyk6205 [place] [address]Dr. Garima Pulliam WBC 8.6 103/ul Normal 4.0-11.0 [facility] Comment on above: Performed By: #### C BC ####[facility] Updyyyemew[address] [place] [address]Dr. Garima Pulliam PROF CHEM 8 (BAS METB)on Anion gap [Moles/Vol] 6.7 mmol/L Normal [facility] Comment on above: Performed By: #### B EDUCATION TRAINER, BMP, HSTROPN ####[facility] Cumxuzookn[address] [place] [address]Dr. Garima Pulliam Calcium [Mass/Vol] 8.8 mg/dL Normal 8.5-10.1 [facility] Comment on above: Performed By: #### B EDUCATION TRAINER, BMP, HSTROPN ####[facility] Qdlvjaiuid[address] [place], [place] [address]Dr. Garima Pulliam Chloride [Moles/Vol] 106 mmol/L Normal 98-107 [facility] Comment on above: Performed By: #### B EDUCATION TRAINER, BMP, HSTROPN ####[facility] Roucfosiyl[address] [place], [place] [address]Dr. Garima Pulliam CO2 [Moles/Vol] 31.4 mmol/L Normal 21.0-32.0 [facility] Comment on above: Performed By: #### B EDUCATION TRAINER, BMP, HSTROPN ####[facility] Hhulczkihy[address] [place], [place] [address]Dr. Garima Pulliam Creatinine [Mass/Vol] 0.75 mg/dL Normal 0.70-1.30 [facility] Comment on above: Performed By: #### B EDUCATION TRAINER, BMP, HSTROPN ####[facility] Wxcpqpduvv7264 [place] [address]Dr. Garima Pulliam EGFR-AF BELIZEAN >60 Normal >=60 [facility] Comment on above: Performed By: #### B EDUCATION TRAINER, BMP, HSTROPN ####[facility] Mlpfgfgvhg7445 [place] [address]Dr. Garima Pulliam EGFR-NON AF BELIZEAN >60 Normal >=60 [facility] Comment on above: Performed By: #### B EDUCATION TRAINER, BMP, HSTROPN ####[facility] Rcclyjqsmh9880 [place] [address]Dr. Garima Pulliam Glucose [Mass/Vol] 161 mg/dL Critically high 74-106 [facility] Comment on above: Performed By: #### B EDUCATION TRAINER, BMP, HSTROPN ####[facility] Lqpyglqqwt1134 [place] [address]Dr. Garima Pulliam Potassium [Moles/Vol] 4.1 mmol/L Normal 3.5-5.1 [facility] Comment on above: Performed By: #### B EDUCATION TRAINER, BMP, HSTROPN ####[facility] Uitvypnrms8124 [place] [address]Dr. Garima Pulliam Sodium [Moles/Vol] 140 mmol/L Normal 136-145 [facility] Comment on above: Performed By: #### B EDUCATION TRAINER, BMP, HSTROPN ####[facility] Pfnezybicv9673 [place] [address]Dr. Garima Pulliam Urea nitrogen [Mass/Vol] 7.0 mg/dL Normal 7.0-18.0 [facility] Comment on above: Performed By: #### B EDUCATION TRAINER, BMP, HSTROPN ####[facility] Yzzxmzsqem1529 [place] [address]Dr. Garima Pulliam Urea nitrogen/Creatinine [Mass ratio] 9.3 mg/mg Normal [facility] Comment on above: Performed By: #### B EDUCATION TRAINER, BMP, HSTROPN ####[facility] Zivxspcxga2213 [place] [address]Dr. Garima Pulliam TROPONIN, HIGH SENSITIVITYon 03-16-2023 HSTROP 9.7 pg/mL Normal 4.0-76.1 [facility] Comment on above: Result Comment: CUT- OFF POINTS HAVE BEEN ESTABLISHED BASED ON THE FOURTH UNIVERSAL DEFINITIONS OF MYOCARDIALINFARCTION. THE UPPER REFERENCE LIMIT (URL) OF TROPONIN, DEFINED THE 99TH PERCENTILE OFcTnI DISTRIBUTION IN A REFERENCE POPULATION, HAS BEEN CONFIRMED THE DECISION THRESHOLDFOR [place] DIAGNOSIS. Performed By: #### B EDUCATION TRAINER, BMP, HSTROPN ####[facility] Qjnfdjsyig[address]48 [place] [address]Dr. Garima Pulliam XR CHEST 1 Von 03-16-2023 XR CHEST 1 V Normal [facility] BNPon 03-06-2023 Natriuretic peptide B (Bld) [Mass/Vol] 111.0 pg/mL Normal <=900.0 [facility] Comment on above: Performed By: #### C MP, BNP, CK ####[facility] Vzmnptwafw65[address] [place] [address]Dr. Chapisrenu Pulliam CBC AUTO DIFFon 03-06-2023 BASO # 0.0 103/ul Normal 0.0-0.1 [facility] Comment on above: Performed By: #### C BC ####[facility] Mtirsaqica[address] [place], [place] [address]Dr. Garima Pulliam Basophils/100 WBC (Bld) 0.2 % Normal 0.2-2.0 [facility] Comment on above: Performed By: #### C BC ####[facility] [address]ukfs[address]zea[address] [place], [place] [address]Dr. Garima Pulliam EO # 0.3 103/ul Normal 0.0-0.7 [facility] Comment on above: Performed By: #### C BC ####[facility] Cesrjfzovx[address] [place], [place] [address]Dr. Garima Pulliam Eosinophils/100 WBC (Bld) 3.5 % Normal 0.9-7.0 [facility] Comment on above: Performed By: #### C BC ####[facility] Boziuaajog[address] [place], [place] [address]Dr. Garima Pulliam Erythrocyte distribution width (RBC) [Ratio] 13.3 % Normal 11.0-15.0 [facility] Comment on above: Performed By: #### C BC ####[facility] Ozqhjpnrlg[address] [place], [place] [address]Dr. Garima Pulliam Hematocrit (Bld) [Volume fraction] 43.7 % Normal 42.0-54.0 [facility] Comment on above: Performed By: #### C BC ####[facility] Qaolvzejft6798 [place] [address]Dr. Garima Pulliam Hemoglobin (Bld) [Mass/Vol] 14.7 g/dL Normal 14.0-18.0 [facility] Comment on above: Performed By: #### C BC ####[facility] Hfgjtfwppk0628 [place] [address]Dr. Chapisreun Heraclio IG # 0.03 10e3/ul Normal 0.00-0.03 [facility] Comment on above: Performed By: #### C BC ####[facility] Plahtkwcbl[address] [place], [place] [address]Dr. Garima Pulliam IG % 0.4 % Normal 0.0-0.5 [facility] Comment on above: Performed By: #### C BC ####[facility] W[address]mukklfa[address] [place], [place] [address]Dr. Garima Pulliam LYMPH # 2.0 103/ul Normal 1.2-3.8 [facility] Comment on above: Performed By: #### C BC ####[facility] Mnkncqpknq[address] [place], [place] [address]DrAdalberto Pulliam Lymphocytes/100 WBC (Bld) 23.7 % Normal 20.5-60.0 [facility] Comment on above: Performed By: #### C BC ####[facility] Dylmuigryo1857 [place] [address]Dr. Garima Pulliam MANUAL DIFF REQ NO Normal [facility] Comment on above: Performed By: #### C BC ####[facility] Faxzwwzavb6909 [place] [phone] Pulliam MCH (RBC) [Entitic mass] 30.1 pg Normal 25.9-34.0 [facility] Comment on above: Performed By: #### C BC ####[facility] Akzlrehvpz1483 [place] [phone]. Garima Pulliam MCHC (RBC) [Mass/Vol] 33.6 g/dL Normal 29.9-35.2 [facility] Comment on above: Performed By: #### C BC ####[facility] Htxelodinh9056 [place] [address]Dr. Garima Heraclio MCV (RBC) [Entitic vol] 89.4 fL Normal 80.0-94.0 [facility] Comment on above: Performed By: #### C BC ####[facility] Ebpivopdzu9444 [place] [address]Dr. Garima Pulliam MONO # 0.8 103/ul Normal 0.3-0.8 [facility] Comment on above: Performed By: #### C BC ####[facility] Hblsirzuvg6372 [place] [address]Dr. Garima Pulliam Monocytes/100 WBC (Bld) 9.0 % Normal 1.7-12.0 [facility] Comment on above: Performed By: #### C BC ####[facility] Ol[address]ie[address]ixyq[address] [place], [place] [address]Dr. Garima Pulliam NEUT # 5.4 103/ul Normal 1.4-6.5 [facility] Comment on above: Performed By: #### C BC ####[facility] Diyfcosjxd[address] [place], [place] [address]Dr. Garima Pulliam Neutrophils/100 WBC (Bld) 63.2 % Normal 43.0-75.0 [facility] Comment on above: Performed By: #### C BC ####[facility] Vrnvsvqzlg[address] [place], [place] [address]Dr. Garima Pulliam Platelet mean volume (Bld) [Entitic vol] 9.0 fL Critically low 9.5-13.5 [facility] Comment on above: Performed By: #### C BC ####[facility] Yhvonshkve[address] [place], [place] [address]Dr. Garima Pulliam PLT 218 103/ul Normal 150-450 [facility] Comment on above: Performed By: #### C BC ####[facility] Nwrrywmekf7310 [place] [phone]. Garima Pulliam RBC 4.89 106/ul Normal 4.70-6.10 [facility] Comment on above: Performed By: #### C BC ####[facility] Gepnhduldl[address] [place] [address]Dr. Garima Pulliam WBC 8.5 103/ul Normal 4.0-11.0 [facility] Comment on above: Performed By: #### C BC ####[facility] Zwmvtcadxz0636 [place] [address]Dr. Garima Pulliam CPKon 03-06-2023 CK [Catalytic activity/Vol] 191 U/L Normal 39-308 [facility] Comment on above: Performed By: #### C MP, BNP, CK ####[facility] Nmwwgvqybz2776 [place] [address]Dr. aGrima Pulliam PROF 14(COMP METB)on 023 Albumin [Mass/Vol] 3.6 g/dL Normal 3.4-5.0 [facility] Comment on above: Performed By: #### C MP, BNP, CK ####[facility] Qrlpchwpcw9203 [place] [address]Dr. Garima Pulliam Albumin/Globulin [Mass ratio] 1.2 {ratio} Normal [facility] Comment on above: Performed By: #### C MP, BNP, CK ####[facility] Atjxycixbu6401 [place] [address]Dr. Garima Pulliam ALP [Catalytic activity/Vol] 91 U/L Normal 46-116 [facility] Comment on above: Performed By: #### C MP, BNP, CK ####[facility] Sqyhrcrvkz0104 [place] [address]Dr. Garima Pulliam ALT [Catalytic activity/Vol] 33 U/L Normal 16-63 [facility] Comment on above: Performed By: #### C MP, BNP, CK ####[facility] Mgcxvqcsay0631 [place] [address]Dr. Garima Pulliam Anion gap [Moles/Vol] 10.3 mmol/L Normal [facility] Comment on above: Performed By: #### C MP, BNP, CK ####[facility] Dxbdveinhs1782 [place] [address]Dr. Garima Pulliam AST [Catalytic activity/Vol] 17 U/L Normal 15-37 [facility] Comment on above: Performed By: #### C MP, BNP, CK ####[facility] Dcvsxfjntl9457 [place] [address]Dr. Garima Pulliam Bilirubin [Mass/Vol] 0.4 mg/dL Normal 0.2-1.0 [facility] Comment on above: Performed By: #### C MP, BNP, CK ####[facility] Xpsetlzeai2569 [place] [address]Dr. Garima Pulliam Calcium [Mass/Vol] 9.1 mg/dL Normal 8.5-10.[address] [facility] Comment on above: Performed By: #### C MP, BNP, CK ####[facility] Pkqbrwnepc5267 [place] [address]Dr. Garima Pulliam Chloride [Moles/Vol] 102 mmol/L Normal 98-107 [facility] Comment on above: Performed By: #### C MP, BNP, CK ####[facility] Pcrbvbygqu5165 [place] [address]Dr. Garima Pulliam CO2 [Moles/Vol] 29.7 mmol/L Normal 21.0-32.0 [facility] Comment on above: Performed By: #### C MP, BNP, CK ####[facility] Hyujibocgz0988 [place] [address]Dr. Garima Pulliam Creatinine [Mass/Vol] 0.79 mg/dL Normal 0.70-1.30 [facility] Comment on above: Performed By: #### C MP, BNP, CK ####[facility] Yxwvxdldyo2560 [place] [address]Dr. Garima Pulliam EGFR-AF BELIZEAN >60 Normal >=60 [facility] Comment on above: Performed By: #### C MP, BNP, CK ####[facility] Lfafmmwdll1830 [place] [address]Dr. Garima Pulliam EGFR-NON AF BELIZEAN >60 Normal >=60 [facility] Comment on above: Performed By: #### C MP, BNP, CK ####[facility] Stjdscnvjd5729 [place] [address]Dr. Garima Pulliam Globulin (S) [Mass/Vol] 3.0 g/dL Normal [facility] Comment on above: Performed By: #### C MP, BNP, CK ####[facility] Wrlifgsarp1799 [place] [address]Dr. Garima Pulliam Glucose [Mass/Vol] 202 mg/dL Critically high 74-106 [facility] Comment on above: Performed By: #### C MP, BNP, CK ####[facility] Cthpswszji2081 [place] [address]Dr. Garima Pulliam Potassium [Moles/Vol] 4.0 mmol/L Normal 3.5-5.1 [facility] Comment on above: Performed By: #### C MP, BNP, CK ####[facility] Kgpizounrs0318 [place] [address]Dr. Garima Pulliam Protein [Mass/Vol] 6.6 g/dL Normal 6.4-8.2 [facility] Comment on above: Performed By: #### C MP, BNP, CK ####[facility] Jqaqtovjyd[address] [place], [place] [address]Dr. Garima Pulliam Sodium [Moles/Vol] 138 mmol/L Normal 136-145 [facility] Comment on above: Performed By: #### C MP, BNP, CK ####[facility] Guaaarwjyu[address] [place], [place] [address]Dr. Garima Pulliam Urea nitrogen [Mass/Vol] 10.0 mg/dL Normal 7.0-18.0 [facility] Comment on above: Performed By: #### C MP, BNP, CK ####[facility] Oyvovcgxqd6466 [place] [address]Dr. Garima Pulliam Urea nitrogen/Creatinine [Mass ratio] 12.7 mg/mg Normal [facility] Comment on above: Performed By: #### C MP, BNP, CK ####[facility] Cicbkwwmsc9830 [place] [address]Dr. Garima Pulliam US VERONICA DOP LEG BILon 023 US VERONICA DOP LEG BENOIT Normal [facility] CBC AUTO DIFFon 01-13-2023 BASO # 0.0 103/ul Normal 0.0-0.1 [facility] Comment on above: Performed By: #### C BC ####[facility] Fnuyppkubq8551 [place] [phone]. Chapisrenu Pulliam Basophils/100 WBC (Bld) 0.0 % Critically low 0.2-2.0 [facility] Comment on above: Performed By: #### C BC ####[facility] Rrxbmtkdzy2156 [place] [address]Dr. Garima Pulliam EO # 0.0 103/ul Normal 0.0-0.7 [facility] Comment on above: Performed By: #### C BC ####[facility] Qsatcqzzjv[address] [place], [place] [address]Dr. Garima Pulliam Eosinophils/100 WBC (Bld) 0.0 % Critically low 0.9-7.0 [facility] Comment on above: Performed By: #### C BC ####[facility] Ghantvqdlk7139 [place] [address]Dr. Garima Pulliam Erythrocyte distribution width (RBC) [Ratio] 13.2 % Normal 11.0-15.0 [facility] Comment on above: Performed By: #### C BC ####[facility] Dgieextyak[address] [place], [place] [address]Dr. Garima Pulliam Hematocrit (Bld) [Volume fraction] 46.7 % Normal 42.0-54.0 [facility] Comment on above: Performed By: #### C BC ####[facility] Bclbranizu70[address] [place], [place] [address]Dr. Garima Pulliam Hemoglobin (Bld) [Mass/Vol] 15.6 g/dL Normal 14.0-18.0 [facility] Comment on above: Performed By: #### C BC ####[facility] H[address]msjnidfl[address] [place], [place] [address]Dr. Garima Pulliam IG # 0.01 10e3/ul Normal 0.00-0.03 [facility] Comment on above: Performed By: #### C BC ####[facility] Xjryyqpdmn2051 [place] [id number]. Garima Pulliam IG % 0.2 % Normal 0.0-0.5 [facility] Comment on above: Performed By: #### C BC ####[facility] Furevpaqxq8150 [place] [address]Dr. Garima Pulliam LYMPH # 0.8 103/ul Critically low 1.2-3.8 [facility] Comment on above: Performed By: #### C BC ####[facility] Dhoapqciew0174 [place] [phone]. Garima Pulliam Lymphocytes/100 WBC (Bld) 12.7 % Critically low 20.5-60.0 [facility] Comment on above: Performed By: #### C BC ####[facility] Osmaoggzff2032 [place] [address]Dr. Garima Pulliam MANUAL DIFF REQ NO Normal [facility] Comment on above: Performed By: #### C BC ####[facility] Wrjupzolqg0234 [place] [phone]. Garima Pulliam MCH (RBC) [Entitic mass] 30.2 pg Normal 25.9-34.0 [facility] Comment on above: Performed By: #### C BC ####[facility] Zrtrdrsspi0609 [place] [phone]. Garima Pulliam MCHC (RBC) [Mass/Vol] 33.4 g/dL Normal 29.9-35.2 [facility] Comment on above: Performed By: #### C BC ####[facility] Xivdmwlgwx6378 [place] [phone]. Garima Pulliam MCV (RBC) [Entitic vol] 90.3 fL Normal 80.0-94.0 [facility] Comment on above: Performed By: #### C BC ####[facility] Wmqqjvuolc1229 [place] [phone]. Garima Heraclio MONO # 0.1 103/ul Critically low 0.3-0.8 [facility] Comment on above: Performed By: #### C BC ####[facility] Vgzpcknxfz2983 [place] [phone]. Garima Pulliam Monocytes/100 WBC (Bld) 0.9 % Critically low 1.7-12.0 [facility] Comment on above: Performed By: #### C BC ####[facility] Wcqfofrbow5179 [place] [phone]. Garima Pulliam NEUT # 5.6 103/ul Normal 1.4-6.5 [facility] Comment on above: Performed By: #### C BC ####[facility] Tkmjfaitvq0528 [place] [phone]. Garima Pulliam Neutrophils/100 WBC (Bld) 86.2 % Critically high 43.0-75.0 [facility] Comment on above: Performed By: #### C BC ####[facility] Wjonchiyul4050 [place] [address]Dr. Garima Pulliam Platelet mean volume (Bld) [Entitic vol] 9.1 fL Critically low 9.5-13.5 [facility] Comment on above: Performed By: #### C BC ####[facility] Necfnkehte[address] [place], [place] [address]Dr. Garima Pulliam PLT 169 103/ul Normal 150-450 [facility] Comment on above: Performed By: #### C BC ####[facility] Wfblrzrswv19[address] [place], [place] [address]Dr. Garima Pulliam RBC 5.17 106/ul Normal 4.70-6.10 [facility] Comment on above: Performed By: #### C BC ####[facility] [address]tewfghth[address] [place], [place] [address]Dr. Garima Pulliam WBC 6.5 103/ul Normal 4.0-11.0 [facility] Comment on above: Performed By: #### C BC ####[facility] Zttqrurfvp8[address] [place], [place] [address]Dr. Garima Pulliam D-DIMERon 01-13-2023 D-DIMER 0.41 mg/L FEU Normal <=0.59 [facility] Comment on above: Performed By: #### D DIM ####[facility] Ntouzyzbps8756 [place] [address]Dr. Garima Pulliam D-DIMER COMMENTS SEE BELOW Normal [facility] Comment on above: Result Comment: Incr eases [...] By: #### D DIM ####[facility] Mbumlphbgv4[address] [place], [place] [address]Dr. Garima Pulliam PROF 14(COMP METB)on 023 Albumin [Mass/Vol] 3.4 g/dL Normal 3.4-5.0 [facility] Comment on above: Performed By: #### C MP ####[facility] Zwrglxcmgj[address] [place], [place] [address]Dr. Garima Pulliam Albumin/Globulin [Mass ratio] 1.3 {ratio} Normal [facility] Comment on above: Performed By: #### C MP ####[facility] Ncicvgcxwj[address] [place], [place] [address]Dr. Garima Pulliam ALP [Catalytic activity/Vol] 83 U/L Normal 46-116 [facility] Comment on above: Performed By: #### C MP ####[facility] Aqaytrrfyq[address] [place], [place] [address]Dr. Garima Pulliam ALT [Catalytic activity/Vol] 25 U/L Normal 16-63 [facility] Comment on above: Performed By: #### C MP ####[facility] Xgoiaidmpd5795 [place] [address]Dr. Garima Pulliam Anion gap [Moles/Vol] 14.5 mmol/L Normal [facility] Comment on above: Performed By: #### C MP ####[facility] Xofdgwufxw[address] [place], [place] [address]Dr. Garima Pulliam AST [Catalytic activity/Vol] 19 U/L Normal 15-37 [facility] Comment on above: Performed By: #### C MP ####[facility] Fwrhujasyf[address] [place], [place] [address]Dr. Garima Pulliam Bilirubin [Mass/Vol] 0.4 mg/dL Normal 0.2-1.0 [facility] Comment on above: Performed By: #### C MP ####[facility] [address] [place], [place] [address]Dr. Garima Pulliam Calcium [Mass/Vol] 8.7 mg/dL Normal 8.5-10.1 [facility] Comment on above: Performed By: #### C MP ####[facility] Xdvopiesjf[address] [place], [place] [address]Dr. Garima Pulliam Chloride [Moles/Vol] 104 mmol/L Normal 98-107 [facility] Comment on above: Performed By: #### C MP ####[facility] Iaysauyybj5[address] [place], [place] [address]Dr. Garima Pulliam CO2 [Moles/Vol] 24.5 mmol/L Normal 21.0-32.0 [facility] Comment on above: Performed By: #### C MP ####[facility] Ghbrxlzfgu6[address] [place], [place] [address]Dr. Garima Pulliam Creatinine [Mass/Vol] 0.70 mg/dL Normal 0.70-1.30 [facility] Comment on above: Performed By: #### C MP ####[facility] Yulghfzrdu[address] [place], [place] [address]Dr. Garima Heraclio EGFR-AF BELIZEAN >60 Normal >=60 [facility] Comment on above: Performed By: #### C MP ####[facility] Ejkgmfyyvl421[address] [place], [place] [address]Dr. Chapisrenu Heraclio EGFR-NON AF BELIZEAN >60 Normal >=60 [facility] Comment on above: Performed By: #### C MP ####[facility] Qkylwkfvjs33[address] [place], [place] [address]Dr. Chapisrenu Pulliam Globulin (S) [Mass/Vol] 2.6 g/dL Normal [facility] Comment on above: Performed By: #### C MP ####[facility] [address] [place] [address]Dr. Garima Pulliam Glucose [Mass/Vol] 196 mg/dL Critically high 74-106 [facility] Comment on above: Performed By: #### C MP ####[facility] Uyyffkuwgs[address] [place] [address]Dr. Garima Pulliam Potassium [Moles/Vol] 4.0 mmol/L Normal 3.5-5.1 [facility] Comment on above: Performed By: #### C MP ####[facility] Jtemnonqmc[address] [place] [address]Dr. Garima Pulliam Protein [Mass/Vol] 6.0 g/dL Critically low 6.4-8.2 [facility] Comment on above: Performed By: #### C MP ####[facility] Xyureqvuwd66[address] [place], [place] [address]Dr. Garima Pulliam Sodium [Moles/Vol] 139 mmol/L Normal 136-145 [facility] Comment on above: Performed By: #### C MP ####[facility] Dcxjigcrbg[address] [place], [place] [address]Dr. Garima Pulliam Urea nitrogen [Mass/Vol] 7.0 mg/dL Normal 7.0-18.0 [facility] Comment on above: Performed By: #### C MP ####[facility] Xvyuspcgwj23[address] [place], [place] [address]Dr. Garima Heraclio Urea nitrogen/Creatinine [Mass ratio] 10.0 mg/mg Normal [facility] Comment on above: Performed By: #### C MP ####[facility] Jiloumscdp8359[address] [place], [place] [address]Dr. Garima Heraclio BNPon 01-12-2023 Natriuretic peptide B (Bld) [Mass/Vol] 141.0 pg/mL Normal <=900.0 [facility] Comment on above: Performed By: #### C MP, BNP, HSTROPN ####[facility] Sixuepqllm[address] [place], [place] [address]Dr. Garima Heraclio CBC AUTO DIFFon 01-12-2023 BASO # 0.0 103/ul Normal 0.0-0.1 [facility] Comment on above: Performed By: #### C BC ####[facility] Xftf[address]wksn65[address] [place] [phone]. Garima Heraclio Basophils/100 WBC (Bld) 0.2 % Normal 0.2-2.0 [facility] Comment on above: Performed By: #### C BC ####[facility] Vpecztniwa[address] [place] [address]Dr. Garima Heraclio EO # 0.2 103/ul Normal 0.0-0.7 [facility] Comment on above: Performed By: #### C BC ####[facility] Didvvixtyu[address] [place] [address]Dr. Garima Heraclio Eosinophils/100 WBC (Bld) 2.7 % Normal 0.9-7.0 [facility] Comment on above: Performed By: #### C BC ####[facility] Hudalvpzjw[address] [place], [place] [address]Dr. Garima Pulliam Erythrocyte distribution width (RBC) [Ratio] 13.3 % Normal 11.0-15.0 [facility] Comment on above: Performed By: #### C BC ####[facility] Fvhwyblcau[address] [place], [place] [address]Dr. Garima Pulliam Hematocrit (Bld) [Volume fraction] 42.3 % Normal 42.0-54.0 [facility] Comment on above: Performed By: #### C BC ####[facility] Jpgcfwbrnl[address] [place], [place] [address]Dr. Garima Pulliam Hemoglobin (Bld) [Mass/Vol] 14.3 g/dL Normal 14.0-18.0 [facility] Comment on above: Performed By: #### C BC ####[facility] Lbriinjwca9[address] [place], [place] [address]Dr. Garima Pulliam IG # 0.02 10e3/ul Normal 0.00-0.03 [facility] Comment on above: Performed By: #### C BC ####[facility] V[address]ryylceud[address] [place] [phone]. Garima Pullaim IG % 0.2 % Normal 0.0-0.5 [facility] Comment on above: Performed By: #### C BC ####[facility] Hyzpcktvwc6775 [place] [address]Dr. Garima Pulliam LYMPH # 2.6 103/ul Normal 1.2-3.8 [facility] Comment on above: Performed By: #### C BC ####[facility] Qojfglussh7066 [place] [phone]. Garima Heraclio Lymphocytes/100 WBC (Bld) 29.6 % Normal 20.5-60.0 [facility] Comment on above: Performed By: #### C BC ####[facility] C[address]bydxkaw[address] [place] [address]Dr. Garima Heraclio MANUAL DIFF REQ NO Normal [facility] Comment on above: Performed By: #### C BC ####[facility] Rqsnxsmiui8249 [place] [phone]. Garima Pulliam MCH (RBC) [Entitic mass] 30.2 pg Normal 25.9-34.0 [facility] Comment on above: Performed By: #### C BC ####[facility] Xabwufcqtq18[address] [place] [address]Dr. Garima Pulliam MCHC (RBC) [Mass/Vol] 33.8 g/dL Normal 29.9-35.2 [facility] Comment on above: Performed By: #### C BC ####[facility] Dowgbkeujp6971 [place] [phone]. Garima Pulliam MCV (RBC) [Entitic vol] 89.2 fL Normal 80.0-94.0 [facility] Comment on above: Performed By: #### C BC ####[facility] Byhzansdok[address] [place], [place] [address]Dr. Chapisrenu Pulliam MONO # 0.7 103/ul Normal 0.3-0.8 [facility] Comment on above: Performed By: #### C BC ####[facility] Otrukncjir[address] [place] [address]Dr. Garima Pulliam Monocytes/100 WBC (Bld) 8.3 % Normal 1.7-12.0 [facility] Comment on above: Performed By: #### C BC ####[facility] Uvuwykyxmj8366 [place] [address]Dr. Garima Pulliam NEUT # 5.1 103/ul Normal 1.4-6.5 [facility] Comment on above: Performed By: #### C BC ####[facility] Eyquorcfps6868 [place] [address]Dr. Garima Pulliam Neutrophils/100 WBC (Bld) 59.0 % Normal 43.0-75.0 [facility] Comment on above: Performed By: #### C BC ####[facility] Ipmlmspmzg0624 [place] [address]Dr. Garima Pulliam Platelet mean volume (Bld) [Entitic vol] 8.7 fL Critically low 9.5-13.5 [facility] Comment on above: Performed By: #### C BC ####[facility] Msf[address] [place] [address]Dr. Garima Pulliam PLT 182 103/ul Normal 150-450 [facility] Comment on above: Performed By: #### C BC ####[facility] Gauptsbvlb8365 [place] [phone]. Garima Pulliam RBC 4.74 106/ul Normal 4.70-6.10 [facility] Comment on above: Performed By: #### C BC ####[facility] Fkux[address] [place], [place] [address]Dr. Garima Pulliam WBC 8.7 103/ul Normal 4.0-11.0 [facility] Comment on above: Performed By: #### C BC ####[facility] Ajmnupzyhb[address] [place], [place] [address]Dr. Garima Pulliam Covid-19 PCR (CVDTB)on 12-25 SARS-CoV-2 [...] for this test is supported by the Operations Research Analyst of Health and Human Service's declaration that [...] By: #### C VDTBH ####[facility] M[address]qfgeqpv64[address] [place] [address]Dr. Garima Pulliam PROF 14(COMP METB)on 023 Albumin [Mass/Vol] 3.6 g/dL Normal 3.4-5.0 [facility] Comment on above: Performed By: #### C MP, BNP, HSTROPN ####[facility] Z[address]rlvxsyqv[address] [place] [address]Dr. Garima Pulliam Albumin/Globulin [Mass ratio] 1.5 {ratio} Normal [facility] Comment on above: Performed By: #### C MP, BNP, HSTROPN ####[facility] V[address]notnney[address] [place] [address]Dr. Garima Pulliam ALP [Catalytic activity/Vol] 79 U/L Normal 46-116 [facility] Comment on above: Performed By: #### C MP, BNP, HSTROPN ####[facility] Xubicuyxtw[address] [place] [address]Dr. Garima Pulliam ALT [Catalytic activity/Vol] 27 U/L Normal 16-63 [facility] Comment on above: Performed By: #### C MP, BNP, HSTROPN ####[facility] Whzxbrfzgl69[address] [place] [address]Dr. Garima Pulliam Anion gap [Moles/Vol] 11.7 mmol/L Normal Th [facility] Comment on above: Performed By: #### C MP, BNP, HSTROPN ####[facility] Wbfliasfvr8[address] [place] [address]Dr. Garima Pulliam AST [Catalytic activity/Vol] 21 U/L Normal 15-37 [facility] Comment on above: Performed By: #### C MP, BNP, HSTROPN ####[facility] Zpacrfxcfi5[address] [place] [address]Dr. Garima Pulliam Bilirubin [Mass/Vol] 0.3 mg/dL Normal 0.2-1.0 [facility] Comment on above: Performed By: #### C MP, BNP, HSTROPN ####[facility] Uhkxhryqdr44[address] [place] [address]Dr. Garima Pulliam Calcium [Mass/Vol] 8.9 mg/dL Normal 8.5-10.1 [facility] Comment on above: Performed By: #### C MP, BNP, HSTROPN ####[facility] Rdiyqbzxmo38[address] [place] [address]Dr. Garima Pulliam Chloride [Moles/Vol] 107 mmol/L Normal 98-107 [facility] Comment on above: Performed By: #### C MP, BNP, HSTROPN ####[facility] Erhtfxuhwq34[address] [place] [address]Dr. Garima Pulliam CO2 [Moles/Vol] 26.0 mmol/L Normal 21.0-32.0 [facility] Comment on above: Performed By: #### C MP, BNP, HSTROPN ####[facility] Vdskbckhgm2483 [place] [address]Dr. Garima Pulliam Creatinine [Mass/Vol] 0.65 mg/dL Critically low 0.70-1.30 [facility] Comment on above: Performed By: #### C MP, BNP, HSTROPN ####[facility] Dduouxthoh[address] [place] [address]Dr. Yilan Pulliam EGFR-AF BELIZEAN >60 Normal >=60 [facility] Comment on above: Performed By: #### C MP, BNP, HSTROPN ####[facility] [address]htifxocw[address] [place] [address]Dr. Garima Pulliam EGFR-NON AF BELIZEAN >60 Normal >=60 [facility] Comment on above: Performed By: #### C MP, BNP, HSTROPN ####[facility] Sprliifjpb5739 [place] [address]Dr. Garima Pulliam Globulin (S) [Mass/Vol] 2.4 g/dL Normal [facility] Comment on above: Performed By: #### C MP, BNP, HSTROPN ####[facility] Yxxfcowlnf[address] [place], [place] [address]Dr. Garima Pulliam Glucose [Mass/Vol] 85 mg/dL Normal 74-106 [facility] Comment on above: Performed By: #### C MP, BNP, HSTROPN ####[facility] Smiirhlcbn5[address] [place] [address]Dr. Garima Pulliam Potassium [Moles/Vol] 3.7 mmol/L Normal 3.5-5.1 [facility] Comment on above: Performed By: #### C MP, BNP, HSTROPN ####[facility] Wbngnacujw4781 [place] [address]Dr. Garima Pulliam Protein [Mass/Vol] 6.0 g/dL Critically low 6.4-8.2 [facility] Comment on above: Performed By: #### C MP, BNP, HSTROPN ####[facility] Caxokliovd57[address] [place] [address]Dr. Garima Pulliam Sodium [Moles/Vol] 141 mmol/L Normal 136-[address] [facility] Comment on above: Performed By: #### C MP, BNP, HSTROPN ####[facility] Cnqahuovlg4134 [place] [address]Dr. Garima Pulliam Urea nitrogen [Mass/Vol] 5.0 mg/dL Critically low 7.0-18.0 [facility] Comment on above: Performed By: #### C MP, BNP, HSTROPN ####[facility] Sgbpmbivcl5527 [place] [address]Dr. Garima Pulliam Urea nitrogen/Creatinine [Mass ratio] 7.7 mg/mg Normal [facility] Comment on above: Performed By: #### C MP, BNP, HSTROPN ####[facility] Myocpdzrta[address] [place] [address]Dr. Garima Pulliam PROTIMEon 01-12-2023 INR Coag (PPP) [Relative time] 1.16 {INR} Normal [facility] Comment on above: Performed By: #### P TT, PT ####[facility] Vbmtogihzy[address] [place] [address]Dr. Garima Pulliam INR GUIDELINES SEE BELOW Normal [facility] Comment on above: Result Comment: WESLEY RED INR: 2.0 - 3.0 CONDITIONS NOT LISTED BELOW 2.5 - 3.5 FOR PROSTHETIC HEART VALVE REPLACEMENT 2.5 - 3.5 RECURRENT THROMBOSIS Performed By: #### P TT, PT ####[facility] Nqgilsnaeu[address] [place], [place] [address]Dr. Garima Pulliam PT Coag (PPP) [Time] 12.2 s Critically high 9.0-11.6 [facility] Comment on above: Performed By: #### P TT, PT ####[facility] Mtcfrqctxl06[address] [place] [address]Dr. Garima Pulliam PTTon 01-12-2023 aPTT Coag (Bld) [Time] 29.1 s Normal 22.3-36.2 [facility] Comment on above: Performed By: #### P TT, PT ####[facility] Rnedfsxrwx[address] [place], [place] [address]Dr. Garima Pulliam TROPONIN, HIGH SENSITIVITYon 01-12-2023 HSTROP [...] [place] DIAGNOSIS. Performed By: #### H STROPN ####[facility] Xhacbviutp9[address] [place] [address]Dr. Garima Pulliam HSTROP 9.2 pg/mL Normal 4.0-76.1 [facility] Comment on above: Result Comment: CUT- OFF POINTS HAVE BEEN ESTABLISHED BASED ON THE FOURTH UNIVERSAL DEFINITIONS OF MYOCARDIALINFARCTION. THE UPPER REFERENCE LIMIT (URL) OF TROPONIN, DEFINED THE 99TH PERCENTILE OFcTnI DISTRIBUTION IN A REFERENCE POPULATION, HAS BEEN CONFIRMED THE DECISION THRESHOLDFOR [place] DIAGNOSIS. Performed By: #### C MP, BNP, HSTROPN ####[facility] Imtyytpydy[address] [place] [address]Dr. Garima Pulliam XR CHEST 1 Von 01-12-2023 XR CHEST 1 V Normal [facility] XR CHEST 1 Von 01-01-2023 XR CHEST 1 V Normal [facility] CARDIAC NASH 3-6on 3 CK [Catalytic activity/Vol] 196 U/L Normal 39-308 [facility] Comment on above: Performed By: #### C MREP ####[facility] Vffzlqxhpr9461 [place] [address]Dr. Garima Pulliam CK.MB [Mass/Vol] 7.41 ng/mL Critically high <=3.60 [facility] Comment on above: Performed By: #### C MREP ####[facility] Tvxmquwhmp7290 [place] [address]Dr. Garima Pulliam HSTROP 10.3 pg/mL Normal 4.0-76.1 [facility] Comment on above: Result Comment: CUT- OFF POINTS HAVE BEEN ESTABLISHED BASED ON THE FOURTH UNIVERSAL DEFINITIONS OF MYOCARDIALINFARCTION. THE UPPER REFERENCE LIMIT (URL) OF TROPONIN, DEFINED THE 99TH PERCENTILE OFcTnI DISTRIBUTION IN A REFERENCE POPULATION, HAS BEEN CONFIRMED THE DECISION THRESHOLDFOR [place] DIAGNOSIS. Performed By: #### C MREP ####[facility] Odfmsrtwmd8123 [place] [phone]. Garima Pulliam XR CHEST 1 Von 12-26-2022 XR CHEST 1 V Normal [facility] BNPon 12-25-2022 Natriuretic peptide B (Bld) [Mass/Vol] 98.0 pg/mL Normal <=900.0 [facility] Comment on above: Performed By: #### B MARVIN FRENCH CMADM ####[facility] Imerxibwxv9805 [place] [address]Dr. Garima Pulliam CARDIAC NASH ADMITon 023 CK [Catalytic activity/Vol] 208 U/L Normal 39-308 [facility] Comment on above: Performed By: #### B MARVIN FRENCH CMADM ####[facility] Dpibeoemez4[address] [place] [address]Dr. Garima Pulliam CK.MB [Mass/Vol] 7.63 ng/mL Critically high <=3.60 [facility] Comment on above: Performed By: #### B MARVIN FRENCH CMADM ####[facility] U[address]ieasjafd[address] [place], [place] [address]Dr. Garima Pulliam HSTROP 8.8 pg/mL Normal 4.0-76.1 [...] B MARVIN FRENCH CMADM ####[facility] Glbhczmzur22[address] [place], [place] [address]Dr. Garima Pulliam DORIS 83 ng/mL Normal 16-96 [facility] Comment on above: Performed By: #### B MARVIN FRENCH CMADM ####[facility] Ahcnbbrkkk[address] [place], [place] [address]Dr. Garima Pulliam CBC AUTO DIFFon 12-25-2022 BASO # 0.0 103/ul Normal 0.0-0.1 [facility] Comment on above: Performed By: #### C BC ####[facility] Orjeafpjwt[address] [place], [place] [address]Dr. Garima Pulliam Basophils/100 WBC (Bld) 0.0 % Critically low 0.2-2.0 [facility] Comment on above: Performed By: #### C BC ####[facility] Pnylgqwfos2546 [place] [address]Dr. Garima Pulliam EO # 0.0 103/ul Normal 0.0-0.7 [facility] Comment on above: Performed By: #### C BC ####[facility] Rioimltgmy00[address] [place], [place] [address]Dr. Garima Pulliam Eosinophils/100 WBC (Bld) 0.7 % Critically low 0.9-7.0 [facility] Comment on above: Performed By: #### C BC ####[facility] Loshwjosdz50[address] [place], [place] [address]Dr. Garima Pulliam Erythrocyte distribution width (RBC) [Ratio] 13.4 % Normal 11.0-15.0 [facility] Comment on above: Performed By: #### C BC ####[facility] Cxvzjschai962[address] [place], [place] [address]Dr. Garima Pulliam Hematocrit (Bld) [Volume fraction] 42.9 % Normal 42.0-54.0 [facility] Comment on above: Performed By: #### C BC ####[facility] Qigssarutg0820[address] [place], [place] [address]Dr. Garima Pulliam Hemoglobin (Bld) [Mass/Vol] 14.4 g/dL Normal 14.0-18.0 [facility] Comment on above: Performed By: #### C BC ####[facility] Icpwokafgk428[address] [place], [place] [address]Dr. Garima Pulliam IG # 0.00 10e3/ul Normal 0.00-0.03 [facility] Comment on above: Performed By: #### C BC ####[facility] Wynhzesseq[address] [place], [place] [address]Dr. Garima Pulliam IG % 0.0 % Normal 0.0-0.5 [facility] Comment on above: Performed By: #### C BC ####[facility] Chqjdyrshb55[address] [place], [place] [address]Dr. Garima Pulliam LYMPH # 2.4 103/ul Normal 1.2-3.8 [facility] Comment on above: Performed By: #### C BC ####[facility] Wayaszcmhk6208 [place] [phone]. Chapisrenu Pulliam Lymphocytes/100 WBC (Bld) 29.2 % Normal 20.5-60.0 [facility] Comment on above: Performed By: #### C BC ####[facility] Puysyoxgmq5265 [place] [phone]. Garima Pulliam MANUAL DIFF REQ NO Normal [facility] Comment on above: Performed By: #### C BC ####[facility] Hdcvqhhlhj9523 [place] [phone]. Garima Pulliam MCH (RBC) [Entitic mass] 30.7 pg Normal 25.9-34.0 [facility] Comment on above: Performed By: #### C BC ####[facility] Dovezfbmid05[address] [place], [place] [address]Dr. Garima Pulliam MCHC (RBC) [Mass/Vol] 33.6 g/dL Normal 29.9-35.2 [facility] Comment on above: Performed By: #### C BC ####[facility] Bciwqbwknd[address] [place], [place] [address]Dr. Garima Pulliam MCV (RBC) [Entitic vol] 91.5 fL Normal 80.0-94.0 [facility] Comment on above: Performed By: #### C BC ####[facility] Zhermtrlkq376[address] [place], [place] [address]Dr. Garima Pulliam MONO # 0.0 103/ul Critically low 0.3-0.8 [facility] Comment on above: Performed By: #### C BC ####[facility] Zurcshakie[address] [place] [address]Dr. Garima Pulliam Monocytes/100 WBC (Bld) 8.0 % Normal 1.7-12.0 [facility] Comment on above: Performed By: #### C BC ####[facility] Vbthgdtdcr20[address] [place], [place] [address]Dr. Garima Pulliam NEUT # 5.1 103/ul Normal 1.4-6.5 [facility] Comment on above: Performed By: #### C BC ####[facility] Kzsnevtagh7125 [place], [place] [address]Uk. Garima Pulliam Neutrophils/100 WBC (Bld) 62.8 % Normal 43.0-75.0 [facility] Comment on above: Performed By: #### C BC ####[facility] Qqdyxrfosk5591 [place], [place] [address]Sq. Garima Pulliam Platelet mean volume (Bld) [Entitic vol] 8.6 fL Critically low 9.5-13.5 [facility] Comment on above: Performed By: #### C BC ####[facility] Xkpzqrsmiq6543 [place] [phone]. Garima Pulliam PLT 200 103/ul Normal 150-450 [facility] Comment on above: Performed By: #### C BC ####[facility] Lwlxtwxald3869 [place] [phone]. Garima Pulliam RBC 4.69 106/ul Critically low 4.70-6.10 [facility] Comment on above: Performed By: #### C BC ####[facility] Gesoifzuai5967 [place], [place] [address]Jd. Garima Pulliam WBC 8.2 103/ul Normal 4.0-11.0 [facility] Comment on above: Performed By: #### C BC ####[facility] Legoeledcu1846 [place], [place] [address]We. Garima Pulliam [facility]on [...] for this test is supported by the Operations Research Analyst of Health and Human Service's declaration that [...] By: #### C VDTBH ####[facility] Irbfdcxptq[address] [place], [place] [address]Dr. Garima Pulliam INFLUENZA A AND B AGon 12-25 INFLUANEGH SEE BELOW Normal [facility] Comment on above: Result Comment: Nega tive for Flu A protein angiten. Infection due to Flu A cannot be ruled out. Flu A angiten in the sample may be below the detection limit of the test. Performed By: #### I NFLUAB ####[facility] Ucbmmhitej3[address] [place], [place] [address]Dr. Garima Pulliam INFLUBNEGH SEE BELOW Normal [facility] Comment on above: Result Comment: Nega tive for Flu B protein antigen. Infection due to Flu B cannot be ruled out. Flu B antigen in the sample may be below the detection limit of the test. Performed By: #### I NFLUAB ####[facility] Uicoeglgpu4[address] [place], [place] [address]Dr. Garima Pulliam INFLUENZA A AG Negative Normal NEGATIVE SEE COMMENT [facility] Comment on above: Performed By: #### I NFLUAB ####[facility] Piaessanqe9[address] [place], [place] [address]Dr. renu [facility] INFLUENZA B AG Negative Normal NEGATIVE SEE COMMENT [facility] Comment on above: Performed By: #### I NFLUAB ####[facility] Jlwjcruwnd17[address] [place], [place] [address]Dr. Garima Pulliam PROF CHEM 8 (BAS METB)on Anion gap [Moles/Vol] 11.1 mmol/L Normal Th [facility] Comment on above: Performed By: #### B EDUCATION TRAINER, BMP, CMADM ####[facility] Rzhuiixgjz[address] [place], [place] [address]Dr. Garima Pulliam Calcium [Mass/Vol] 8.5 mg/dL Normal 8.5-10.[address] [facility] Comment on above: Performed By: #### B EDUCATION TRAINER, MARVIN, CMADM ####[facility] Iaeqfmkzdn2213 [place] [phone]. Garima Pulliam Chloride [Moles/Vol] 106 mmol/L Normal 98-107 [facility] Comment on above: Performed By: #### B EDUCATION TRAINER, BMP, CMADM ####[facility] Irzegghone7[address] [place] [address]Dr. Garima Pulliam CO2 [Moles/Vol] 27.4 mmol/L Normal 21.0-32.0 [facility] Comment on above: Performed By: #### B EDUCATION TRAINER, MARVIN, CMADM ####[facility] Lntbgcltmz4583 [place] [address]Dr. Garima Pulliam Creatinine [Mass/Vol] 0.65 mg/dL Critically low 0.70-1.30 [facility] [facility] Comment on above: Performed By: #### B EDUCATION TRAINER, MARVIN, CMADM ####[facility] [address] [place] [address]Dr. Garima Pulliam EGFR-AF BELIZEAN >60 Normal >=60 [facility] Comment on above: Performed By: #### B EDUCATION TRAINER, BMP, CMADM ####[facility] [address]qrxiejd[address] [place] [address]Dr. Garima Pulliam EGFR-NON AF BELIZEAN >60 Normal >=60 [facility] Comment on above: Performed By: #### B EDUCATION TRAINER, BMP, CMADM ####[facility] [address]ukcby[address]zu[address] [place] [address]Dr. Garima Pulliam Glucose [Mass/Vol] 140 mg/dL Critically high 74-106 [facility] Comment on above: Performed By: #### B EDUCATION TRAINER, BMP, CMADM ####[facility] Icopjwgyqi[address] [place] [address]Dr. Garima Pulliam Potassium [Moles/Vol] 3.5 mmol/L Normal 3.5-5.1 [facility] Comment on above: Performed By: #### B EDUCATION TRAINER, BMP, CMADM ####[facility] Uldrwlsgag[address] [place] [address]Dr. Garima Pulliam Sodium [Moles/Vol] 141 mmol/L Normal 136-145 [facility] Comment on above: Performed By: #### B EDUCATION TRAINER, BMP, CMADM ####[facility] Vsvsdtvbxy[address] [place] [address]Dr. Garima Pulliam Urea nitrogen [Mass/Vol] 8.0 mg/dL Normal 7.0-18.0 [facility] Comment on above: Performed By: #### B EDUCATION TRAINER, BMP, CMADM ####[facility] Irptofyvei[address] [place] [address]Dr. Garima Pulliam Urea nitrogen/Creatinine [Mass ratio] 12.3 mg/mg Normal [facility] Comment on above: Performed By: #### B EDUCATION TRAINER, BMP, CMADM ####[facility] Th[address]zhmlwuo[address] [place], [place] [address]Dr. Garima Pulliam CARDIAC NASH ADMITon 023 CK [Catalytic activity/Vol] 165 U/L Normal 39-308 [facility] Comment on above: Performed By: #### B DAVID, CMADM ####[facility] Plzg[address]fduo[address] [place], [place] [address]Dr. Garima Pulliam CK.MB [Mass/Vol] 6.48 ng/mL Critically high <=3.60 [facility] Comment on above: Performed By: #### B MP, CMADM ####[facility] [address]uv[address]wfq[address] [place], [place] [address]Dr. Garima Pulliam HSTROP 11.7 pg/mL Normal 4.0-76.1 [facility] Comment on above: Result Comment: CUT- OFF POINTS HAVE BEEN ESTABLISHED BASED ON THE FOURTH UNIVERSAL DEFINITIONS OF MYOCARDIALINFARCTION. THE UPPER REFERENCE LIMIT (URL) OF TROPONIN, DEFINED THE 99TH PERCENTILE OFcTnI DISTRIBUTION IN A REFERENCE POPULATION, HAS BEEN CONFIRMED THE DECISION THRESHOLDFOR [place] DIAGNOSIS. Performed By: #### B MP, CMADM ####[facility] Npvovssuyr[address] [place], [place] [address]Dr. Garima Pulliam DORIS 83 ng/mL Normal 16-96 [facility] Comment on above: Performed By: #### B MP, CMADM ####[facility] Kricrsbrvp[address] [place] [address]Dr. Garima Pulliam CBC AUTO DIFFon 12-10-2022 BASO # 0.0 103/ul Normal 0.0-0.1 [facility] Comment on above: Performed By: #### C BC ####[facility] Qzkozjnnlc[address] [place], [place] [address]Dr. Garima Heraclio Basophils/100 WBC (Bld) 0.3 % Normal 0.2-2.0 [facility] Comment on above: Performed By: #### C BC ####[facility] Jxgtdunzsc[address] [place], [place] [address]Dr. Garima Pulliam EO # 0.1 103/ul Normal 0.0-0.7 [facility] Comment on above: Performed By: #### C BC ####[facility] Sgrxgahrji[address] [place], [place] [address]Dr. Garima Pulliam Eosinophils/100 WBC (Bld) 0.4 % Critically low 0.9-7.0 [facility] Comment on above: Performed By: #### C BC ####[facility] Mcccsosdap[address] [place], [place] [address]Dr. Garima Pulliam Erythrocyte distribution width (RBC) [Ratio] 13.2 % Normal 11.0-15.0 [facility] Comment on above: Performed By: #### C BC ####[facility] Qbydjruojd14[address] [place], [place] [address]Dr. Garima Pulliam Hematocrit (Bld) [Volume fraction] 42.4 % Normal 42.0-54.0 [facility] Comment on above: Performed By: #### C BC ####[facility] Xeqafwnegu[address] [place], [place] [address]Dr. Garima Pulliam Hemoglobin (Bld) [Mass/Vol] 14.4 g/dL Normal 14.0-18.0 [facility] Comment on above: Performed By: #### C BC ####[facility] [address]ra[address]f3[address] [place] [phone]. Garima Heraclio IG # 0.05 10e3/ul Critically high 0.00-0.03 [facility] Comment on above: Performed By: #### C BC ####[facility] Hyrmayvogj76[address] [place] [address]Dr. Garima Heraclio IG % 0.4 % Normal 0.0-0.5 [facility] Comment on above: Performed By: #### C BC ####[facility] Yfenmdhezc[address] [place], [place] [address]Dr. Garima Pulliam LYMPH # 0.8 103/ul Critically low 1.2-3.8 [facility] Comment on above: Performed By: #### C BC ####[facility] Tpmajxjovg[address] [place], [place] [address]Dr. Chapisrenu Pulliam Lymphocytes/100 WBC (Bld) 6.5 % Critically low 20.5-60.0 [facility] Comment on above: Performed By: #### C BC ####[facility] Umdhkmcyca[address] [place], [place] [address]Dr. Chapisrenu Pulliam MANUAL DIFF REQ NO Normal The [facility] Comment on above: Performed By: #### C BC ####[facility] Nnmtkmlfby[address] [place], [place] [address]DrAdalberto Garima Pulliam MCH (RBC) [Entitic mass] 30.5 pg Normal 25.9-34.0 [facility] Comment on above: Performed By: #### C BC ####[facility] Lpvodfzsgu[address] [place], [place] [address]DrAdalberto Garima Heraclio MCHC (RBC) [Mass/Vol] 34.0 g/dL Normal 29.9-35.2 [facility] Comment on above: Performed By: #### C BC ####[facility] Enymktqifk[address] [place], [place] [address]DrAdalberto Garima Heraclio MCV (RBC) [Entitic vol] 89.8 fL Normal 80.0-94.0 [facility] Comment on above: Performed By: #### C BC ####[facility] Wjeztixrog[address] [place], [place] [address]Dr. Garima Pulliam MONO # 0.2 103/ul Critically low 0.3-0.8 [facility] Comment on above: Performed By: #### C BC ####[facility] Gslvcixkce32[address] [place] [phone]. Garima Pulliam Monocytes/100 WBC (Bld) 2.0 % Normal 1.7-12.0 [facility] Comment on above: Performed By: #### C BC ####[facility] Nsgywwkylx3[address] [place] [address]Dr. Chapisrenu Heraclio NEUT # 10.5 103/ul Critically high 1.4-6.5 [facility] Comment on above: Performed By: #### C BC ####[facility] Gteyampuuv[address] [place] [address]Dr. Garima Pulliam Neutrophils/100 WBC (Bld) 90.4 % Critically high 43.0-75.0 [facility] Comment on above: Performed By: #### C BC ####[facility] Rzxtxqvqre88[address] [place] [address]Dr. Garima Pulliam Platelet mean volume (Bld) [Entitic vol] 9.4 fL Critically low 9.5-13.5 [facility] Comment on above: Performed By: #### C BC ####[facility] Rdohdxtmzl9018 [place] [address]Dr. Garima Pulliam PLT 198 103/ul Normal 150-450 [facility] Comment on above: Performed By: #### C BC ####[facility] B[address]awgdamf[address] [place] [address]Dr. Garima Pulliam RBC 4.72 106/ul Normal 4.70-6.10 [facility] Comment on above: Performed By: #### C BC ####[facility] Rqq[address]ogshs30[address] [place] [phone]. Garima Pulliam WBC 11.6 103/ul Critically high 4.0-11.0 [facility] Comment on above: Performed By: #### C BC ####[facility] [address]ys[address]qlodgv[address] [place] [address]DrAdalberto Pulliam PROF CHEM 8 (BAS METB)on Anion gap [Moles/Vol] 11.3 mmol/L Normal Th [facility] Comment on above: Performed By: #### B NANCY HERNANDEZ ####[facility] [address]kw[address]rrpdj[address] [place] [address]Dr. Garima Pulliam Calcium [Mass/Vol] 8.9 mg/dL Normal 8.5-10.1 [facility] Comment on above: Performed By: #### B NANCY HERNANDEZ ####[facility] Vvqizmynbi[address] [place] [address]Dr. Garima Pulliam Chloride [Moles/Vol] 103 mmol/L Normal 98-107 [facility] Comment on above: Performed By: #### B NANCY HERNANDEZ ####[facility] Atemefzxbk[address] [place], [place] [address]Dr. Garima Pulliam CO2 [Moles/Vol] 28.2 mmol/L Normal 21.0-32.0 [facility] Comment on above: Performed By: #### NANCY Larkin MP ####[facility] D[address]zkqewof75[address] [place] [address]Dr. Chapisrenu Pulliam Creatinine [Mass/Vol] 0.60 mg/dL Critically low 0.70-1.30 [facility] Comment on above: Performed By: #### NANCY Larkin MP ####[facility] [address]wppbyhah[address] [place] [address]Dr. Garima Pulliam EGFR-AF BELIZEAN >60 Normal >=60 [facility] Comment on above: Performed By: #### NANCY Larkin MP ####[facility] Irrhligefz71[address] [place] [address]Dr. Garima Pulliam EGFR-NON AF BELIZEAN >60 Normal >=60 [facility] Comment on above: Performed By: #### NANCY Larkin MP ####[facility] Zjatprofms[address] [place], [place] [address]Dr. Garima Pulliam Glucose [Mass/Vol] 166 mg/dL Critically high 74-106 [facility] Comment on above: Performed By: #### B MP, CMADM ####[facility] Zugbsczgae[address] [place] [address]Dr. Garima Pulliam Potassium [Moles/Vol] 3.5 mmol/L Normal 3.5-5.1 [facility] Comment on above: Performed By: #### B MP, CMADM ####[facility] Zkcqwaipqa6[address] [place] [address]Dr. Garima Pulliam Sodium [Moles/Vol] 139 mmol/L Normal 136-[address] [facility] Comment on above: Performed By: #### B DAVID, CMADM ####[facility] Luetcbjfzs4049 [place] [address]Dr. Garima Heraclio Urea nitrogen [Mass/Vol] 9.0 mg/dL Normal 7.0-18.0 [facility] Comment on above: Performed By: #### B DAVID, NANCY ####[facility] [address]hpb[address] [place], [place] [address]Dr. Garima Heraclio Urea nitrogen/Creatinine [Mass ratio] 15.0 mg/mg Normal [facility] Comment on above: Performed By: #### B DAVID, CMAANA ROSA ####[facility] [address]wtj[address] [place], [place] [address]Dr. Garima Pulliam XR CHEST 1 Von 12-10-2022 XR CHEST 1 V Normal [facility] BNPon 11-27-2022 Natriuretic peptide B (Bld) [Mass/Vol] 95.0 pg/mL Normal <=900.0 [facility] Comment on above: Performed By: #### C MP, HSTROPN, BNP ####[facility] Fwclcgueuv[address] [place], [place] [address]Dr. Garima Heraclio CBC AUTO DIFFon 11-27-2022 BASO # 0.0 103/ul Normal 0.0-0.1 [facility] Comment on above: Performed By: #### C BC ####[facility] Grextyjguj[address] [place], [place] [address]Dr. Garima Heraclio Basophils/100 WBC (Bld) 0.2 % Normal 0.2-2.0 [facility] Comment on above: Performed By: #### C BC ####[facility] Nmjncpudss5559 [place] [phone]. Garima Pulliam EO # 0.2 103/ul Normal 0.0-0.7 [facility] Comment on above: Performed By: #### C BC ####[facility] Ollwyhsqvp5196 [place] [phone]. Garima Pulliam Eosinophils/100 WBC (Bld) 2.0 % Normal 0.9-7.0 [facility] Comment on above: Performed By: #### C BC ####[facility] Stdjaonset2[address] [place], [place] [address]Dr. Garima Pulliam Erythrocyte distribution width (RBC) [Ratio] 13.2 % Normal 11.0-15.0 [facility] Comment on above: Performed By: #### C BC ####[facility] Nlolxdqrgk[address] [place], [place] [address]Dr. Garima Pulliam Hematocrit (Bld) [Volume fraction] 42.4 % Normal 42.0-54.0 [facility] Comment on above: Performed By: #### C BC ####[facility] Nlkidaglxj[address] [place], [place] [address]Dr. Garima Pulliam Hemoglobin (Bld) [Mass/Vol] 14.4 g/dL Normal 14.0-18.0 [facility] Comment on above: Performed By: #### C BC ####[facility] Dykvzmizrg[address] [place], [place] [address]Dr. Garima Pulliam IG # 0.04 10e3/ul Critically high 0.00-0.03 [facility] Comment on above: Performed By: #### C BC ####[facility] [address]qwltjgnvo[address] [place], [place] [address]Dr. Garima Pulliam IG % 0.4 % Normal 0.0-0.5 [facility] Comment on above: Performed By: #### C BC ####[facility] U[address]oxfojrjb[address] [place], [place] [address]Dr. Garima Pulliam LYMPH # 2.2 103/ul Normal 1.2-3.8 [facility] Comment on above: Performed By: #### C BC ####[facility] Bgevfwkrcg9491 [place] [phone]. Garima Pulliam Lymphocytes/100 WBC (Bld) 21.5 % Normal 20.5-60.0 [facility] Comment on above: Performed By: #### C BC ####[facility] Fplxydxsln4976 [place] [phone]. Garima Heraclio MANUAL DIFF REQ NO Normal [facility] Comment on above: Performed By: #### C BC ####[facility] Irdcxyoppg6344 [place] [phone]. Garima Heraclio MCH (RBC) [Entitic mass] 30.4 pg Normal 25.9-34.0 [facility] Comment on above: Performed By: #### C BC ####[facility] Jgchcokhxm4826 [place] [address]Dr. Garima Heraclio MCHC (RBC) [Mass/Vol] 34.0 g/dL Normal 29.9-35.2 [facility] Comment on above: Performed By: #### C BC ####[facility] Dnnpeuxpej2830 [place] [phone]. Garima Pulliam MCV (RBC) [Entitic vol] 89.6 fL Normal 80.0-94.0 [facility] Comment on above: Performed By: #### C BC ####[facility] Twtqmrleaq7649 [place] [phone]. Garima Pulliam MONO # 0.8 103/ul Normal 0.3-0.8 [facility] Comment on above: Performed By: #### C BC ####[facility] Nhhjzpparu5670 [place] [phone]. Chpaisrenu Pulliam Monocytes/100 WBC (Bld) 7.7 % Normal 1.7-12.0 [facility] Comment on above: Performed By: #### C BC ####[facility] [address]qxzhbzo[address] [place], [place] [address]Dr. Garima Pulliam NEUT # 7.0 103/ul Critically high 1.4-6.[address] [facility] Comment on above: Performed By: #### C BC ####[facility] Khxrhslmgw2989 [place] [phone]. Garima Pulliam Neutrophils/100 WBC (Bld) 68.2 % Normal 43.0-75.0 [facility] Comment on above: Performed By: #### C BC ####[facility] Steuvozjkg1089 [place] [phone]. Chapisrenu Pulliam Platelet mean volume (Bld) [Entitic vol] 8.9 fL Critically low 9.5-13.5 [facility] Comment on above: Performed By: #### C BC ####[facility] Xnslkkfzum[address] [place] [address]Dr. Garima Pulliam PLT 222 103/ul Normal 150-450 [facility] Comment on above: Performed By: #### C BC ####[facility] Ijxegqzjmt69[address] [place] [address]Dr. Garima Pulliam RBC 4.73 106/ul Normal 4.70-6.10 [facility] Comment on above: Performed By: #### C BC ####[facility] Sekngekkse[address] [place] [address]Dr. Garima Pulliam WBC 10.3 103/ul Normal 4.0-11.0 [facility] Comment on above: Performed By: #### C BC ####[facility] Jzkvzarauo39[address] [place] [address]Dr. Garima Pulliam PROF 14(COMP METB)on 023 Albumin [Mass/Vol] 3.7 g/dL Normal 3.4-5.0 [facility] Comment on above: Performed By: #### C MP, HSTROPN, BNP ####[facility] Ciwfzcbkas38[address] [place] [address]Dr. Chapisrenu Pulliam Albumin/Globulin [Mass ratio] 1.5 {ratio} Normal [facility] Comment on above: Performed By: #### C MP, HSTROPN, BNP ####[facility] Qsderhcrje4088 [place] [address]Dr. Garima Pulliam ALP [Catalytic activity/Vol] 79 U/L Normal 46-116 [facility] Comment on above: Performed By: #### C MP, HSTROPN, BNP ####[facility] Mveumnraiv6230 [place] [address]Dr. Garima Pulliam ALT [Catalytic activity/Vol] 32 U/L Normal 16-63 [facility] Comment on above: Performed By: #### C MP, HSTROPN, BNP ####[facility] Ottmlnkiif8965 [place] [address]Dr. Garima Pulliam Anion gap [Moles/Vol] 9.5 mmol/L Normal [facility] Comment on above: Performed By: #### C MP, HSTROPN, BNP ####[facility] Vtnkftndun[address] [place], [place] [address]Dr. Garima Pulliam AST [Catalytic activity/Vol] 25 U/L Normal 15-37 [facility] Comment on above: Performed By: #### C MP, HSTROPN, BNP ####[facility] Pnmprnlyto[address] [place], [place] [address]Dr. Chapislan Pulliam Bilirubin [Mass/Vol] 0.4 mg/dL Normal 0.2-1.0 [facility] Comment on above: Performed By: #### C MP, HSTROPN, BNP ####[facility] Odvskfeqej[address] [place], [place] [address]Dr. Garima Pulliam Calcium [Mass/Vol] 8.9 mg/dL Normal 8.5-10.1 [facility] Comment on above: Performed By: #### C MP, HSTROPN, BNP ####[facility] [address]hhutsme19[address] [place], [place] [address]Dr. Chapislan Pulliam Chloride [Moles/Vol] 103 mmol/L Normal 98-107 [facility] Comment on above: Performed By: #### C MP, HSTROPN, BNP ####[facility] B[address]czqquvvk[address] [place], [place] [address]Dr. Yilan Pulliam CO2 [Moles/Vol] 28.6 mmol/L Normal 21.0-32.0 [facility] Comment on above: Performed By: #### C MP, HSTROPN, BNP ####[facility] Cogmvexwqu35[address] [place] [address]Dr. Garima Pulliam Creatinine [Mass/Vol] 0.72 mg/dL Normal 0.70-1.30 [facility] Comment on above: Performed By: #### C MP, HSTROPN, BNP ####[facility] Qhftridgri0223 [place] [address]Dr. Garima Pulliam EGFR-AF BELIZEAN >60 Normal >=60 [facility] Comment on above: Performed By: #### C MP, HSTROPN, BNP ####[facility] Kcaemcmhno[address] [place] [address]Dr. Garima Pulliam EGFR-NON AF BELIZEAN >60 Normal >=60 [facility] Comment on above: Performed By: #### C MP, HSTROPN, BNP ####[facility] Nhzgfivwsq3865 [place] [address]Dr. Garima Pulliam Globulin (S) [Mass/Vol] 2.5 g/dL Normal [facility] Comment on above: Performed By: #### C MP, HSTROPN, BNP ####[facility] [address]zgyu[address] [place], [place] [address]Dr. Garima Pulliam Glucose [Mass/Vol] 114 mg/dL Critically high 74-106 [facility] Comment on above: Performed By: #### C MP, HSTROPN, BNP ####[facility] Ayznmhlpev[address] [place], [place] [address]Dr. Garima Pulliam Potassium [Moles/Vol] 4.1 mmol/L Normal 3.5-5.1 [facility] Comment on above: Performed By: #### C MP, HSTROPN, BNP ####[facility] Iozpxfykgw[address] [place], [place] [address]Dr. Garima Pulliam Protein [Mass/Vol] 6.2 g/dL Critically low 6.4-8.2 Th [facility] Comment on above: Performed By: #### C MP, HSTROPN, BNP ####[facility] B[address]hw[address]obsjg[address] [place], [place] [address]Dr. Yilan Pulliam Sodium [Moles/Vol] 137 mmol/L Normal 136-[address] [facility] Comment on above: Performed By: #### C MP, HSTROPN, BNP ####[facility] Mwggidfvmu2048 [place] [address]Dr. Garima Pulliam Urea nitrogen [Mass/Vol] 13.0 mg/dL Normal 7.0-18.0 [facility] Comment on above: Performed By: #### C MP, HSTROPN, BNP ####[facility] Wnmxaaeruj30[address] [place] [address]Dr. Garima Pulliam Urea nitrogen/Creatinine [Mass ratio] 18.1 mg/mg Normal [facility] Comment on above: Performed By: #### C MP, HSTROPN, BNP ####[facility] Cdjjvehond[address] [place], [place] [address]Dr. Garima Pulliam TROPONIN, HIGH SENSITIVITYon 11-27-2022 HSTROP 11.8 pg/mL Normal 4.0-76.1 [facility] Comment on above: Result Comment: CUT- OFF POINTS HAVE BEEN ESTABLISHED BASED ON THE FOURTH UNIVERSAL DEFINITIONS OF MYOCARDIALINFARCTION. THE UPPER REFERENCE LIMIT (URL) OF TROPONIN, DEFINED THE 99TH PERCENTILE OFcTnI DISTRIBUTION IN A REFERENCE POPULATION, HAS BEEN CONFIRMED THE DECISION THRESHOLDFOR [place] DIAGNOSIS. Performed By: #### C MP, HSTROPN, BNP ####[facility] [address]yzseeb[address] [place], [place] [address]Dr. Garima Pulliam XR CHEST 1 Von 11-27-2022 XR CHEST 1 V Normal [facility] BNPon 11-20-2022 Natriuretic peptide B (Bld) [Mass/Vol] 73.0 pg/mL Normal <=900.0 [facility] Comment on above: Performed By: #### B MP, HSTROPN, BNP ####[facility] Yerbaxnlnr[address] [place], [place] [address]Dr. Garima Pulliam CBC AUTO DIFFon 11-20-2022 BASO # 0.0 103/ul Normal 0.0-0.1 [facility] Comment on above: Performed By: #### C BC ####[facility] Hbbjmpctqj1063 [place] [phone]. Garima Pulliam Basophils/100 WBC (Bld) 0.3 % Normal 0.2-2.0 [facility] Comment on above: Performed By: #### C BC ####[facility] Vpppzxlkvl2621 [place] [phone]. Garima Pulliam EO # 0.2 103/ul Normal 0.0-0.7 [facility] Comment on above: Performed By: #### C BC ####[facility] Fhbdhivtqm4161 [place] [address]Dr. Garima Pulliam Eosinophils/100 WBC (Bld) 2.1 % Normal 0.9-7.0 [facility] Comment on above: Performed By: #### C BC ####[facility] Z[address]fdpfnii[address] [place], [place] [address]Dr. Garima Pulliam Erythrocyte distribution width (RBC) [Ratio] 13.2 % Normal 11.0-15.0 [facility] Comment on above: Performed By: #### C BC ####[facility] [address]xwwmcukyy[address] [place], [place] [address]Dr. Garima Pulliam Hematocrit (Bld) [Volume fraction] 43.4 % Normal 42.0-54.0 [facility] Comment on above: Performed By: #### C BC ####[facility] [address] [place], [place] [address]Dr. Garima Pulliam Hemoglobin (Bld) [Mass/Vol] 14.6 g/dL Normal 14.0-18.0 [facility] Comment on above: Performed By: #### C BC ####[facility] Fzlxpegkdm3793 [place] [phone]. Garima Pulliam IG # 0.02 10e3/ul Normal 0.00-0.03 [facility] Comment on above: Performed By: #### C BC ####[facility] Zh[address]iqeoui[address] [place] [address]Dr. Garima Pulliam IG % 0.2 % Normal 0.0-0.5 [facility] Comment on above: Performed By: #### C BC ####[facility] Ergjtvzdkx7312 [place] [phone]. Garima Heraclio LYMPH # 2.1 103/ul Normal 1.2-3.8 [facility] Comment on above: Performed By: #### C BC ####[facility] Zcifybgdef4543 [place] [phone]. Garima Heraclio Lymphocytes/100 WBC (Bld) 19.2 % Critically low 20.5-60.0 [facility] Comment on above: Performed By: #### C BC ####[facility] Dtcxxoikge9526 [place] [phone]. Chapisrenu Pulliam MANUAL DIFF REQ NO Normal [facility] Comment on above: Performed By: #### C BC ####[facility] Sgqqkxfrnb1281 [place] [phone]. Garima Heraclio MCH (RBC) [Entitic mass] 30.4 pg Normal 25.9-34.0 [facility] Comment on above: Performed By: #### C BC ####[facility] [address]efptuhixm[address] [place] [address]Dr. Garima Pulliam MCHC (RBC) [Mass/Vol] 33.6 g/dL Normal 29.9-35.2 [facility] Comment on above: Performed By: #### C BC ####[facility] [address]st[address] [place] [id number]. Garima Heraclio MCV (RBC) [Entitic vol] 90.4 fL Normal 80.0-94.0 [facility] Comment on above: Performed By: #### C BC ####[facility] Maywbkikzq5[address] [place] [phone]. Garima Heraclio MONO # 0.6 103/ul Normal 0.3-0.8 [facility] Comment on above: Performed By: #### C BC ####[facility] [address]rb[address] [place] [address]Dr. Garima Heraclio Monocytes/100 WBC (Bld) 5.8 % Normal 1.7-12.0 [facility] Comment on above: Performed By: #### C BC ####[facility] Abrpbxvjuk8142 [place], [place] [address]Ve. Garima Pulliam NEUT # 7.8 103/ul Critically high 1.4-6.[address] [facility] Comment on above: Performed By: #### C BC ####[facility] Mkjjhkpkxp4487 [place] [phone]. Garima Pulliam Neutrophils/100 WBC (Bld) 72.4 % Normal 43.0-75.0 [facility] Comment on above: Performed By: #### C BC ####[facility] Uvaaiwqiyf7[address] [place] [phone]. Garima Pulliam Platelet mean volume (Bld) [Entitic vol] 8.7 fL Critically low 9.5-13.5 [facility] Comment on above: Performed By: #### C BC ####[facility] Stsodvqquy6[address] [place] [phone]. Garima Pulliam PLT 184 103/ul Normal 150-450 [facility] Comment on above: Performed By: #### C BC ####[facility] Hktabzybdu5388 [place], [place] [address]Ms. Garima Pulliam RBC 4.80 106/ul Normal 4.70-6.10 [facility] Comment on above: Performed By: #### C BC ####[facility] Wcikzcovoj6640 [place] [phone]. Garima Pulliam WBC 10.8 103/ul Normal 4.0-11.0 [facility] Comment on above: Performed By: #### C BC ####[facility] Jsufdenlfk4799 [place] [phone]. Garima Pulliam [facility] ([facility]on [...] for this test is supported by the [place] of Health and Human Service's declaration that [...] By: #### C VDTBH ####[facility] [address]jbqxdgviu[address] [place], [place] [address]Dr. Garima Pulliam INFLUENZA A AND B AGon 11-20 [facility] SEE BELOW Normal [facility] Comment on above: Result Comment: Nega tive for Flu A protein angiten. Infection due to Flu A cannot be ruled out. Flu A angiten in the sample may be below the detection limit of the test. Performed By: #### I NFLUAB ####[facility] Pfombcvuyz[address] [place], [place] [address]Dr. Garima Pulliam INFLUBNEGH SEE BELOW Normal [facility] Comment on above: Result Comment: Nega tive for Flu B protein antigen. Infection due to Flu B cannot be ruled out. Flu B antigen in the sample may be below the detection limit of the test. Performed By: #### I NFLUAB ####[facility] Ktvelovgli[address] [place], [place] [address]Dr. Garmia Pulliam INFLUENZA A AG Negative Normal NEGATIVE SEE COMMENT [facility] Comment on above: Performed By: #### I NFLUAB ####[facility] Dwcmlyrvvf7[address] [place], [place] [address]Dr. Garima [facility] INFLUENZA B AG Negative Normal NEGATIVE SEE COMMENT [facility] Comment on above: Performed By: #### I NFLUAB ####[facility] Pjrgnycyop[address] [place], [place] [address]Dr. Garima Pulliam PROF CHEM 8 (BAS METB)on Anion gap [Moles/Vol] 8.2 mmol/L Normal [facility] Comment on above: Performed By: #### B MP, HSTROPN, BNP ####[facility] Jlqztukocg[address] [place] [address]Dr. Garima Pulliam Calcium [Mass/Vol] 8.7 mg/dL Normal 8.5-10.1 [facility] Comment on above: Performed By: #### B MP, HSTROPN, BNP ####[facility] Zjqcforsti85[address] [place] [address]Dr. Garima Pulliam Chloride [Moles/Vol] 103 mmol/L Normal 98-107 [facility] Comment on above: Performed By: #### B MP, HSTROPN, BNP ####[facility] Efcnostpwn[address] [place], [place] [address]Dr. Garima Pulliam CO2 [Moles/Vol] 29.4 mmol/L Normal 21.0-32.0 [facility] Comment on above: Performed By: #### B MP, HSTROPN, BNP ####[facility] Oqwvdffyig[address] [place], [place] [address]Dr. Garima Pulliam Creatinine [Mass/Vol] 0.69 mg/dL Critically low 0.70-1.30 [facility] Comment on above: Performed By: #### B MP, HSTROPN, BNP ####[facility] Miceedevll[address] [place] [address]Dr. Garima Pulliam EGFR-AF BELIZEAN >60 Normal >=60 [facility] Comment on above: Performed By: #### B MP, HSTROPN, BNP ####[facility] Qmarjpfrmt54[address] [place], [place] [address]Dr. Garima Pulliam EGFR-NON AF BELIZEAN >60 Normal >=60 [facility] Comment on above: Performed By: #### B MP, HSTROPN, BNP ####[facility] Fwznhphpxn[address] [place] [address]Dr. Garima Pulliam Glucose [Mass/Vol] 209 mg/dL Critically high 74-106 T [facility] Comment on above: Performed By: #### B MP, HSTROPN, BNP ####[facility] Sbamssvlcd3486 [place] [address]Dr. Garima Pulliam Potassium [Moles/Vol] 3.6 mmol/L Normal 3.5-5.1 [facility] Comment on above: Performed By: #### B MP, HSTROPN, BNP ####[facility] [address]utxenfny[address] [place] [address]Dr. Garima Pulliam Sodium [Moles/Vol] 137 mmol/L Normal 136-[address] [facility] Comment on above: Performed By: #### B MP, HSTROPN, BNP ####[facility] Oeqclzvtlk18[address] [place] [address]Dr. Garima Pulliam Urea nitrogen [Mass/Vol] 11.0 mg/dL Normal 7.0-18.0 [facility] Comment on above: Performed By: #### B MP, HSTROPN, BNP ####[facility] Qbxnrvkjam4464 [place] [address]Dr. Garima Pulliam Urea nitrogen/Creatinine [Mass ratio] 15.9 mg/mg Normal [facility] Comment on above: Performed By: #### B MP, HSTROPN, BNP ####[facility] Xrewvhwzqn59[address] [place] [address]Dr. Garima Pulliam TROPONIN, HIGH SENSITIVITYon 11-20-2022 HSTROP 8.7 pg/mL Normal 4.0-76.1 [facility] Comment on above: Result Comment: CUT- OFF POINTS HAVE BEEN ESTABLISHED BASED ON THE FOURTH UNIVERSAL DEFINITIONS OF MYOCARDIALINFARCTION. THE UPPER REFERENCE LIMIT (URL) OF TROPONIN, DEFINED THE 99TH PERCENTILE OFcTnI DISTRIBUTION IN A REFERENCE POPULATION, HAS BEEN CONFIRMED THE DECISION THRESHOLDFOR NH DIAGNOSIS. Performed By: #### B MP, HSTROPN, BNP ####[facility] Drhtriejmo22[address] [place] [address]Dr. Garima Pulliam XR CHEST 1 Von 11-20-2022 XR CHEST 1 V Normal [facility] XR CHEST 1 Von 10-02-2022 XR CHEST 1 V Normal [facility] BNPon 09-29-2022 Natriuretic peptide B (Bld) [Mass/Vol] 107.0 pg/mL Normal <=900.0 [facility] Comment on above: Performed By: #### C MP, BNP, CMADM ####[facility] Ybyhwxgokn[address] [place] [address]Dr. Garima Pulliam CARDIAC NASH ADMITon 022 CK [Catalytic activity/Vol] 190 U/L Normal 39-308 [facility] Comment on above: Performed By: #### C MP, BNP, CMADM ####[facility] Tkgocgwjul360[address] [place] [address]Dr. Garima Heraclio CK.MB [Mass/Vol] 11.11 ng/mL Critically high <=3.60 [facility] Comment on above: Performed By: #### C MP, BNP, CMADM ####[facility] Hgnotrqvbs7371 [place] [address]Dr. Garima Pulliam HSTROP 11.8 pg/mL Normal 4.0-76.1 [...] C MP, BNP, CMADM ####[facility] Kksewgtamr[address] [place] [address]Dr. Garima Pulliam DORIS 133 ng/mL Critically high 16-[address] [facility] Comment on above: Performed By: #### C MP, BNP, CMADM ####[facility] Sllsvcqqyw4[address] [place] [address]Dr. Garima Heraclio CBC AUTO DIFFon 09-29-2022 BASO # 0.0 103/ul Normal 0.0-0.1 [facility] Comment on above: Performed By: #### C BC ####[facility] Yvytqaelln14[address] [place] [address]Dr. Garima Heraclio Basophils/100 WBC (Bld) 0.2 % Normal 0.2-2.0 [facility] Comment on above: Performed By: #### C BC ####[facility] Gjqusulqmo6363 [place] [address]Dr. Garima Pulliam EO # 0.1 103/ul Normal 0.0-0.7 [facility] Comment on above: Performed By: #### C BC ####[facility] Zczuuioszy1337 [place] [address]Dr. Garima Pulliam Eosinophils/100 WBC (Bld) 1.4 % Normal 0.9-7.0 [facility] Comment on above: Performed By: #### C BC ####[facility] Ijpjjgucxo06[address] [place], [place] [address]Dr. Garima Pulliam Erythrocyte distribution width (RBC) [Ratio] 13.7 % Normal 11.0-15.0 [facility] Comment on above: Performed By: #### C BC ####[facility] Wdxvvnerkt18[address] [place], [place] [address]Dr. Garima Pulliam Hematocrit (Bld) [Volume fraction] 45.4 % Normal 42.0-54.0 [facility] Comment on above: Performed By: #### C BC ####[facility] Kdfoeutfww74[address] [place], [place] [address]Dr. Garima Pulliam Hemoglobin (Bld) [Mass/Vol] 14.8 g/dL Normal 14.0-18.0 [facility] Comment on above: Performed By: #### C BC ####[facility] Hgsknehgne[address] [place], [place] [address]Dr. Garima Pulliam IG # 0.04 10e3/ul Critically high 0.00-0.03 [facility] Comment on above: Performed By: #### C BC ####[facility] Mpvevgeepo19[address] [place], [place] [address]Dr. Garima Pulliam IG % 0.5 % Normal 0.0-0.5 [facility] Comment on above: Performed By: #### C BC ####[facility] Nyunlbpjtx4[address] [place], [place] [address]Dr. Garima Pulliam LYMPH # 1.1 103/ul Critically low 1.2-3.8 [facility] Comment on above: Performed By: #### C BC ####[facility] Hoffpojmpq1049 [place] [address]Dr. Garima Pulliam Lymphocytes/100 WBC (Bld) 12.7 % Critically low 20.5-60.0 [facility] Comment on above: Performed By: #### C BC ####[facility] Djrxfdljfd4378 [place] [address]Dr. Chapisrenu Pulliam MANUAL DIFF REQ NO Normal [facility] Comment on above: Performed By: #### C BC ####[facility] [address]as[address] [place], [place] [address]Dr. Garima Heraclio MCH (RBC) [Entitic mass] 30.0 pg Normal 25.9-34.0 [facility] Comment on above: Performed By: #### C BC ####[facility] Bueqonvgvb[address] [place], [place] [address]Dr. Garima Heraclio MCHC (RBC) [Mass/Vol] 32.6 g/dL Normal 29.9-35.2 [facility] Comment on above: Performed By: #### C BC ####[facility] Igkkhwmwyd[address] [place], [place] [address]Dr. Garima Heraclio MCV (RBC) [Entitic vol] 91.9 fL Normal 80.0-94.0 [facility] Comment on above: Performed By: #### C BC ####[facility] Cbf[address]azgdm[address] [place], [place] [address]Dr. Garima Pulliam MONO # 0.4 103/ul Normal 0.3-0.8 [facility] Comment on above: Performed By: #### C BC ####[facility] Cfccrhnlsz[address] [place], [place] [address]Dr. Chapisrenu Pulliam Monocytes/100 WBC (Bld) 4.8 % Normal 1.7-12.0 [facility] Comment on above: Performed By: #### C BC ####[facility] Qowppwbblr[address] [place], [place] [address]Dr. Garima Pulliam NEUT # 7.1 103/ul Critically high 1.4-6.[address] [facility] Comment on above: Performed By: #### C BC ####[facility] Pqoieemmkm9976 [place], [place] [address]Hs. Garima Pulliam Neutrophils/100 WBC (Bld) 80.4 % Critically high 43.0-75.0 [facility] Comment on above: Performed By: #### C BC ####[facility] Jscnrmpzfh5009 [place] [phone]. Garima Pulliam Platelet mean volume (Bld) [Entitic vol] 9.1 fL Critically low 9.5-13.5 [facility] Comment on above: Performed By: #### C BC ####[facility] Avzgkmbsdd9915 [place] [address]Dr. Garima Pulliam PLT 200 103/ul Normal 150-450 [facility] Comment on above: Performed By: #### C BC ####[facility] Hyvdugqoci1801 [place] [address]Dr. Garima Pulliam RBC 4.94 106/ul Normal 4.70-6.10 [facility] Comment on above: Performed By: #### C BC ####[facility] Abuqldytdo4682 [place] [address]Dr. Garima Pulliam WBC 8.9 103/ul Normal 4.0-11.0 [facility] Comment on above: Performed By: #### C BC ####[facility] Vgyijbwdnm4736 [place] [phone]. Garima Pulliam Covid-19 PCR (CVDTB)on SARS-CoV-2 (COVID-19) [...] for this test is supported by the [place] of Health and Human Service's declaration that [...] By: #### C VDTBH ####[facility] K[address]chee[address] [place] [address]Dr. Garima Pulliam LACTATE/LACTIC ACIDon 2021 Lactate [Moles/Vol] 1.7 mmol/L Normal 0.4-1.9 [facility] Comment on above: Performed By: #### L ACT ####[facility] Hnffdtjnod[address] [place], [place] [address]Dr. Garima Pulliam PROF 14(COMP METB)on 022 Albumin [Mass/Vol] 3.8 g/dL Normal 3.4-5.0 [facility] Comment on above: Performed By: #### C MP, BNP, CMADM ####[facility] Oksqtrutul[address] [place], [place] [address]Dr. Garima Pulliam Albumin/Globulin [Mass ratio] 1.5 {ratio} Normal [facility] Comment on above: Performed By: #### C MP, BNP, CMADM ####[facility] Upudexthxl59[address] [place] [address]Dr. Garima Pulliam ALP [Catalytic activity/Vol] 62 U/L Normal 46-116 [facility] Comment on above: Performed By: #### C MP, BNP, CMADM ####[facility] Axqwopalek7273 [place] [address]Dr. Garima Pulliam ALT [Catalytic activity/Vol] 37 U/L Normal 16-63 [facility] Comment on above: Performed By: #### C MP, BNP, CMADM ####[facility] Mmbafkbtme5915 [place] [address]Dr. Garima Pulliam Anion gap [Moles/Vol] 8.0 mmol/L Normal [facility] Comment on above: Performed By: #### C MP, BNP, CMADM ####[facility] Biidfmptip7020 [place] [address]Dr. Garima Pulliam AST [Catalytic activity/Vol] 20 U/L Normal 15-37 [facility] Comment on above: Performed By: #### C MP, BNP, CMADM ####[facility] Ofveypztct5851 [place] [address]Dr. Garima Pulliam Bilirubin [Mass/Vol] 0.6 mg/dL Normal 0.2-1.0 [facility] Comment on above: Performed By: #### C MP, BNP, CMADM ####[facility] Ydyizplxov3251 [place] [address]Dr. Garima Pulliam Calcium [Mass/Vol] 9.1 mg/dL Normal 8.5-10.1 [facility] Comment on above: Performed By: #### C MP, BNP, CMADM ####[facility] Tnenmqrlrf50[address] [place], [place] [address]Dr. Garima Pulliam Chloride [Moles/Vol] 103 mmol/L Normal 98-107 [facility] Comment on above: Performed By: #### C MP, BNP, CMADM ####[facility] Hclfpbjfvi[address] [place], [place] [address]Dr. Garima Pulliam CO2 [Moles/Vol] 31.8 mmol/L Normal 21.0-32.0 [facility] Comment on above: Performed By: #### C MP, BNP, CMADM ####[facility] Hbfihjptfw[address] [place], [place] [address]Dr. Garima Pulliam Creatinine [Mass/Vol] 0.63 mg/dL Critically low 0.70-1.30 [facility] Comment on above: Performed By: #### C MP, BNP, CMADM ####[facility] Uhbuwziekw50[address] [place], [place] [address]Dr. Garima Pulliam EGFR-AF BELIZEAN >60 Normal >=60 [facility] Comment on above: Performed By: #### C MP, BNP, CMADM ####[facility] Rvjuejbqne[address] [place], [place] [address]Dr. Garima Pulliam EGFR-NON AF BELIZEAN >60 Normal >=60 [facility] Comment on above: Performed By: #### C MP, BNP, CMADM ####[facility] Qilhferiyh5659 [place] [address]Dr. Garima Pulliam Globulin (S) [Mass/Vol] 2.6 g/dL Normal [facility] Comment on above: Performed By: #### C MP, BNP, CMADM ####[facility] Vefdpuvtao6854 [place] [address]Dr. Garima Pulliam Glucose [Mass/Vol] 103 mg/dL Normal 74-[address] [facility] Comment on above: Performed By: #### C MP, BNP, CMADM ####[facility] Xqtgjbuhkn8832 [place] [address]Dr. Garima Pulliam Potassium [Moles/Vol] 3.8 mmol/L Normal 3.5-5.1 [facility] Comment on above: Performed By: #### C MP, BNP, CMADM ####[facility] Isutqceasf6463 [place] [address]Dr. Garima Pulliam Protein [Mass/Vol] 6.4 g/dL Normal 6.4-8.[address] [facility] Comment on above: Performed By: #### C MP, BNP, CMADM ####[facility] Ryfqfmayyu4537 [place] [address]Dr. Garima Pulliam Sodium [Moles/Vol] 139 mmol/L Normal 136-[address] [facility] Comment on above: Performed By: #### C MP, BNP, CMADM ####[facility] Nyjqstlwzv6830 [place] [address]Dr. Garima Pulliam Urea nitrogen [Mass/Vol] 7.0 mg/dL Normal 7.0-18.0 [facility] Comment on above: Performed By: #### C MP, BNP, CMADM ####[facility] Olqkjlgvvg0925 [place] [address]Dr. Garima Pulliam Urea nitrogen/Creatinine [Mass ratio] 11.1 mg/mg Normal [facility] Comment on above: Performed By: #### C MP, BNP, CMADM ####[facility] Ivshomfvvc5842 [place] [address]Dr. Garima Pulliam PROTIMEon 09-29-2022 INR Coag (PPP) [Relative time] 1.14 {INR} Normal [facility] Comment on above: Performed By: #### P T, PTT ####[facility] Zoticzodup[address] [place], [place] [address]Dr. Garima Pulliam INR GUIDELINES SEE BELOW Normal [facility] Comment on above: Result Comment: WESLEY RED INR: 2.0 - 3.0 CONDITIONS NOT LISTED BELOW 2.5 - 3.5 FOR PROSTHETIC HEART VALVE REPLACEMENT 2.5 - 3.5 RECURRENT THROMBOSIS Performed By: #### P T, PTT ####[facility] Vstiuhggck[address] [place], [place] [address]Dr. Garima Pulliam PT Coag (PPP) [Time] 12.2 s Critically high 9.0-11.6 [facility] Comment on above: Performed By: #### P T, PTT ####[facility] Okwbimygdm[address] [place], [place] [address]Dr. Garima Pulliam PTTon 09-29-2022 aPTT Coag (Bld) [Time] 29.3 s Normal 22.3-36.2 [facility] Comment on above: Performed By: #### P T, PTT ####[facility] Bdwxczgzse20[address] [place], [place] [address]Dr. Garima Pulliam XR CHEST 1 Von 09-29-2022 XR CHEST 1 V Normal [facility] CBC AUTO DIFFon 09-26-2022 BASO # 0.0 103/ul Normal 0.0-0.1 [facility] Comment on above: Performed By: #### C BC ####[facility] S[address]tdxasjhs[address] [place], [place] [address]Dr. Garima Pulliam Basophils/100 WBC (Bld) 0.2 % Normal 0.2-2.0 [facility] Comment on above: Performed By: #### C BC ####[facility] Kjzxpnqxeg[address] [place], [place] [address]Dr. Garima Pulliam EO # 0.1 103/ul Normal 0.0-0.7 [facility] Comment on above: Performed By: #### C BC ####[facility] Sjvklqiavz[address] [place], [place] [address]Dr. Garima Pulliam Eosinophils/100 WBC (Bld) 1.0 % Normal 0.9-7.0 [facility] Comment on above: Performed By: #### C BC ####[facility] Zevylugugd8[address] [place], [place] [address]Dr. Garima Pulliam Erythrocyte distribution width (RBC) [Ratio] 13.4 % Normal 11.0-15.0 [facility] Comment on above: Performed By: #### C BC ####[facility] Ppkjpttbdu75[address] [place], [place] [address]Dr. Garima Pulliam Hematocrit (Bld) [Volume fraction] 46.3 % Normal 42.0-54.0 [facility] Comment on above: Performed By: #### C BC ####[facility] Bxoxgckkvp[address] [place], [place] [address]Dr. Garima Pulliam Hemoglobin (Bld) [Mass/Vol] 15.3 g/dL Normal 14.0-18.0 [facility] Comment on above: Performed By: #### C BC ####[facility] Ouuxhbfchm99[address] [place], [place] [address]Dr. Garima Pulliam IG # 0.05 10e3/ul Critically high 0.00-0.03 [facility] Comment on above: Performed By: #### C BC ####[facility] Olydhfleyq[address] [place], [place] [address]Dr. Garima Pulliam IG % 0.4 % Normal 0.0-0.5 [facility] Comment on above: Performed By: #### C BC ####[facility] Akxznlmshi4[address] [place], [place] [address]Dr. Garima Pulliam LYMPH # 1.7 103/ul Normal 1.2-3.8 [facility] Comment on above: Performed By: #### C BC ####[facility] Dvpryyxwav[address] [place], [place] [address]Dr. Garima Pulliam Lymphocytes/100 WBC (Bld) 12.7 % Critically low 20.5-60.0 [facility] Comment on above: Performed By: #### C BC ####[facility] Qmzghokrbj[address] [place] [address]DrAdalberto Pulliam MANUAL DIFF REQ NO Normal [facility] Comment on above: Performed By: #### C BC ####[facility] Yohdowdtil52[address] [place] [address]Dr. Garima Pulliam MCH (RBC) [Entitic mass] 30.1 pg Normal 25.9-34.0 [facility] Comment on above: Performed By: #### C BC ####[facility] Rugaujahaf[address] [place], [place] [address]Dr. Garima Pulliam MCHC (RBC) [Mass/Vol] 33.0 g/dL Normal 29.9-35.2 [facility] Comment on above: Performed By: #### C BC ####[facility] Chjugxbunt[address] [place], [place] [address]DrAdalberto Pulliam MCV (RBC) [Entitic vol] 91.1 fL Normal 80.0-94.0 [facility] Comment on above: Performed By: #### C BC ####[facility] Uvtrppvodn[address] [place], [place] [address]DrAdalberto Pulliam MONO # 0.9 103/ul Critically high 0.3-0.[address] [facility] Comment on above: Performed By: #### C BC ####[facility] Rsmtqvbcrs[address] [place], [place] [address]DrAdalberto Pulliam Monocytes/100 WBC (Bld) 7.0 % Normal 1.7-12.0 [facility] Comment on above: Performed By: #### C BC ####[facility] C[address]axxehbp[address] [place], [place] [address]DrAdalberto Pulliam NEUT # 10.4 103/ul Critically high 1.4-6.5 [facility] Comment on above: Performed By: #### C BC ####[facility] Elsxhwxrva3[address] [place], [place] [address]DrAdalberto Pulliam Neutrophils/100 WBC (Bld) 78.7 % Critically high 43.0-75.0 [facility] Comment on above: Performed By: #### C BC ####[facility] Lzfgycwgdm9053 [place] [address]Dr. Garima Pulliam Platelet mean volume (Bld) [Entitic vol] 8.9 fL Critically low 9.5-13.5 [facility] Comment on above: Performed By: #### C BC ####[facility] Pvmnihtzwq5042 [place] [address]Dr. Garima Pulliam PLT 195 103/ul Normal 150-450 [facility] Comment on above: Performed By: #### C BC ####[facility] Ekrdqvvkcm[address] [place], [place] [address]Dr. Gairma Pulliam RBC 5.08 106/ul Normal 4.70-6.10 [facility] Comment on above: Performed By: #### C BC ####[facility] [address]qzgvawxof[address] [place], [place] [address]Dr. Garima Pulliam WBC 13.2 103/ul Critically high 4.0-11.0 [facility] Comment on above: Performed By: #### C BC ####[facility] Kcnbimuzkf[address] [place], [place] [address]Dr. Garima Pulliam PROF 14(COMP METB)on 022 Albumin [Mass/Vol] 3.5 g/dL Normal 3.4-5.0 [facility] [facility] Comment on above: Performed By: #### C DAVID HSTROPN ####[facility] [address]rdgdmpp[address] [place] [address]Dr. Garima Pulliam Albumin/Globulin [Mass ratio] 1.2 {ratio} Normal [facility] Comment on above: Performed By: #### C RAFAT HERNANDEZTROPN ####[facility] Hyejuebkvn[address] [place] [address]Dr. Garima Pulliam ALP [Catalytic activity/Vol] 71 U/L Normal 46-116 [facility] Comment on above: Performed By: #### C DAVID HSTROPN ####[facility] Odlvmcleee[address] [place] [address]Dr. Garima Pulliam ALT [Catalytic activity/Vol] 37 U/L Normal 16-63 [facility] Comment on above: Performed By: #### C DAVID, HSTROPN ####[facility] Ljpfqzofjp[address] [place] [address]Dr. Garima Pulliam Anion gap [Moles/Vol] 4.8 mmol/L Normal [facility] Comment on above: Performed By: #### C DAVID, HSTROPN ####[facility] [address]iwaai[address] [place], [place] [address]Dr. Garima Pulliam AST [Catalytic activity/Vol] 21 U/L Normal 15-37 [facility] Comment on above: Performed By: #### C DAVID, HSTROPN ####[facility] Xkvffpbrhc[address] [place], [place] [address]Dr. Garima Pulliam Bilirubin [Mass/Vol] 0.3 mg/dL Normal 0.2-1.0 [facility] Comment on above: Performed By: #### C DAVID, HSTROPN ####[facility] [address]beusdxl[address] [place] [address]Dr. Garima Pulliam Calcium [Mass/Vol] 8.9 mg/dL Normal 8.5-10.1 [facility] Comment on above: Performed By: #### C DAVID, HSTROPN ####[facility] Ybmudcpbvw[address] [place] [address]Dr. Garima Pulliam Chloride [Moles/Vol] 106 mmol/L Normal 98-107 [facility] Comment on above: Performed By: #### C DAVID, HSTROPN ####[facility] [address]emilgvdp[address] [place] [address]Dr. Garima Pulliam CO2 [Moles/Vol] 29.8 mmol/L Normal 21.0-32.0 [facility] Comment on above: Performed By: #### C DAVID, HSTROPN ####[facility] Mbuhsnsqpk[address] [place] [address]Dr. Garima Pulliam Creatinine [Mass/Vol] 0.68 mg/dL Critically low 0.70-1.30 The [facility] Comment on above: Performed By: #### C MP, HSTROPN ####[facility] [address]ffvwyinql[address] [place] [address]Dr. Garima Pulliam EGFR-AF BELIZEAN >60 Normal >=60 [facility] Comment on above: Performed By: #### C MP, HSTROPN ####[facility] Ihgmmzcjtk[address] [place] [address]Dr. Chapislan Pulliam EGFR-NON AF BELIZEAN >60 Normal >=60 [facility] Comment on above: Performed By: #### C MP, HSTROPN ####[facility] Khflrgkmtn96[address] [place] [address]Dr. Garima Pulliam Globulin (S) [Mass/Vol] 2.8 g/dL Normal [facility] Comment on above: Performed By: #### C MP, HSTROPN ####[facility] Ebtqwemupr64[address] [place] [address]Dr. Garima Pulliam Glucose [Mass/Vol] 133 mg/dL Critically high 74-106 [facility] Comment on above: Performed By: #### C MP, HSTROPN ####[facility] Uqftnfatew[address] [place] [address]Dr. Chapisrenu Pulliam Potassium [Moles/Vol] 3.6 mmol/L Normal 3.5-5.1 [facility] Comment on above: Performed By: #### C MP, HSTROPN ####[facility] Exrpuevssp[address] [place] [address]Dr. Chapisrenu Pulliam Protein [Mass/Vol] 6.3 g/dL Critically low 6.4-8.2 [facility] Comment on above: Performed By: #### C MP, HSTROPN ####[facility] [address]pusbtbiol[address] [place], [place] [address]Dr. Chapisrenu Pulliam Sodium [Moles/Vol] 137 mmol/L Normal 136-145 [facility] Comment on above: Performed By: #### C MP, HSTROPN ####[facility] Pzuxtmqnou[address] [place], [place] [address]Dr. Garima Pulliam Urea nitrogen [Mass/Vol] 15.0 mg/dL Normal 7.0-18.0 [facility] Comment on above: Performed By: #### C DAVID HSTROPN ####[facility] [address]erjgau[address] [place] [address]Dr. Chapisrenu Pulliam Urea nitrogen/Creatinine [Mass ratio] 22.1 mg/mg Normal [facility] Comment on above: Performed By: #### C DAVID HSTROPN ####[facility] Vevexjsvxv[address] [place] [address]Dr. Garima Heraclio TROPONIN, HIGH SENSITIVITYon 09-26-2022 HSTROP [...] DIAGNOSIS. Performed By: #### C DAVID HSTROPN ####[facility] [address]qf[address]jnzrv[address] [place] [address]Dr. Chapisrenu Pulliam XR CHEST 1 Von 09-26-2022 XR CHEST 1 V Normal [facility] XR CHEST 1 Von 09-16-2022 XR CHEST 1 V Normal [facility] CBC AUTO DIFFon 09-15-2022 BASO # 0.0 103/ul Normal 0.0-0.1 [facility] Comment on above: Performed By: #### C BC ####[facility] Bmrub[address]tsg[address] [place] [address]Dr. Garima Heraclio Basophils/100 WBC (Bld) 0.1 % Critically low 0.2-2.0 [facility] Comment on above: Performed By: #### C BC ####[facility] Hfnetjstii34[address] [place] [address]Dr. Garima Pulliam EO # 0.0 103/ul Normal 0.0-0.7 [facility] Comment on above: Performed By: #### C BC ####[facility] Ofrvybhgte[address] [place] [address]Dr. Garima Pulliam Eosinophils/100 WBC (Bld) 0.1 % Critically low 0.9-7.0 [facility] Comment on above: Performed By: #### C BC ####[facility] Vorxpppxny0616 [place] [address]Dr. Garima Pulliam Erythrocyte distribution width (RBC) [Ratio] 14.1 % Normal 11.0-15.0 [facility] Comment on above: Performed By: #### C BC ####[facility] Aeeuzluzvb[address] [place], [place] [address]Dr. Garima Pulliam Hematocrit (Bld) [Volume fraction] 46.1 % Normal 42.0-54.0 [facility] Comment on above: Performed By: #### C BC ####[facility] Jtswxtaqmg[address] [place], [place] [address]Dr. Garima Pulliam Hemoglobin (Bld) [Mass/Vol] 15.0 g/dL Normal 14.0-18.0 [facility] Comment on above: Performed By: #### C BC ####[facility] Nrzrnezgto[address] [place], [place] [address]Dr. Garima Pulliam IG # 0.03 10e3/ul Normal 0.00-0.03 [facility] Comment on above: Performed By: #### C BC ####[facility] Flhlfzbcyq[address] [place], [place] [address]Dr. Garima Pulliam IG % 0.3 % Normal 0.0-0.5 [facility] Comment on above: Performed By: #### C BC ####[facility] Pjzrpmwxbd[address] [place], [place] [address]Dr. Garima Pulliam LYMPH # 0.6 103/ul Critically low 1.2-3.8 The [facility] Comment on above: Performed By: #### C BC ####[facility] Fxbhicfowv[address] [place], [place] [address]Dr. Garima Pulliam Lymphocytes/100 WBC (Bld) 5.8 % Critically low 20.5-60.0 [facility] Comment on above: Performed By: #### C BC ####[facility] [address]qco[address] [place] [phone]. Garima Pulliam MANUAL DIFF REQ NO Normal The [facility] Comment on above: Performed By: #### C BC ####[facility] Vvzqshpxti[address] [place] [phone]. Garima Pulliam MCH (RBC) [Entitic mass] 30.2 pg Normal 25.9-34.0 [facility] Comment on above: Performed By: #### C BC ####[facility] Ikfzsxcutu64[address] [place] [address]Dr. Garima Pulliam MCHC (RBC) [Mass/Vol] 32.5 g/dL Normal 29.9-35.2 [facility] Comment on above: Performed By: #### C BC ####[facility] Ojdkddwwlr[address] [place] [address]Dr. Garima Pulliam MCV (RBC) [Entitic vol] 92.8 fL Normal 80.0-94.0 [facility] Comment on above: Performed By: #### C BC ####[facility] Fewegtieyi[address] [place] [address]Dr. Garima Heraclio MONO # 0.3 103/ul Normal 0.3-0.8 [facility] Comment on above: Performed By: #### C BC ####[facility] Uxzxzhysjb0497 [place] [phone]. Gairma Heraclio Monocytes/100 WBC (Bld) 3.2 % Normal 1.7-12.0 [facility] Comment on above: Performed By: #### C BC ####[facility] Iqpukwurol8754 [place] [address]Dr. Garima Pulliam NEUT # 9.8 103/ul Critically high 1.4-6.[address] [facility] Comment on above: Performed By: #### C BC ####[facility] Vzgrzylymw5579 [place] [address]Dr. Garima Pulliam Neutrophils/100 WBC (Bld) 90.5 % Critically high 43.0-75.0 [facility] Comment on above: Performed By: #### C BC ####[facility] Bksbqjnphl7439 [place] [phone]. Garima Pulliam Platelet mean volume (Bld) [Entitic vol] 9.4 fL Critically low 9.5-13.5 [facility] Comment on above: Performed By: #### C BC ####[facility] F[address]rgthpbq4172 [place] [address]Dr. Garima Pulliam PLT 208 103/ul Normal 150-450 [facility] Comment on above: Performed By: #### C BC ####[facility] Flaoffatbb[address] [place] [address]Dr. Garima Pulliam RBC 4.97 106/ul Normal 4.70-6.10 [facility] Comment on above: Performed By: #### C BC ####[facility] Snefcvoevo[address] [place] [address]Dr. Garima Pulliam WBC 10.8 103/ul Normal 4.0-11.0 [facility] Comment on above: Performed By: #### C BC ####[facility] Ahtpexsywl[address] [place] [address]Dr. Garima Pulliam PROF 14(COMP METB)on 022 Albumin [Mass/Vol] 4.0 g/dL Normal 3.4-5.0 [facility] Comment on above: Performed By: #### C MP ####[facility] Dyfsxhvsau[address] [place] [address]Dr. Garima Pulliam Albumin/Globulin [Mass ratio] 1.5 {ratio} Normal [facility] Comment on above: Performed By: #### C MP ####[facility] Vvxrypivta1439 [place] [address]Dr. Garima Pulliam ALP [Catalytic activity/Vol] 73 U/L Normal 46-116 [facility] Comment on above: Performed By: #### C MP ####[facility] Clad[address]lfkf[address] [place] [address]Dr. Garima Pulliam ALT [Catalytic activity/Vol] 42 U/L Normal 16-63 [facility] Comment on above: Performed By: #### C MP ####[facility] Gocuxlefzu[address] [place] [address]Dr. Garima Pulliam Anion gap [Moles/Vol] 9.1 mmol/L Normal [facility] Comment on above: Performed By: #### C MP ####[facility] Awlqyjubdl[address] [place], [place] [address]Dr. Garima Pulliam AST [Catalytic activity/Vol] 28 U/L Normal 15-37 [facility] Comment on above: Performed By: #### C MP ####[facility] Btfkfgdrlh[address] [place], [place] [address]Dr. Garima Pulliam Bilirubin [Mass/Vol] 0.6 mg/dL Normal 0.2-1.0 [facility] Comment on above: Performed By: #### C MP ####[facility] Ujrzqbmrll[address] [place], [place] [address]Dr. Garima Pulliam Calcium [Mass/Vol] 8.6 mg/dL Normal 8.5-10.[address] [facility] Comment on above: Performed By: #### C MP ####[facility] Hlbrbforni[address] [place], [place] [address]Dr. Garima Pulliam Chloride [Moles/Vol] 105 mmol/L Normal 98-107 [facility] Comment on above: Performed By: #### C MP ####[facility] Fbwudzvdkr[address] [place], [place] [address]Dr. Garima Pulliam CO2 [Moles/Vol] 28.5 mmol/L Normal 21.0-32.0 The [facility] Comment on above: Performed By: #### C MP ####[facility] Tffrywxsio49[address] [place], [place] [address]Dr. Garima Heraclio Creatinine [Mass/Vol] 0.78 mg/dL Normal 0.70-1.30 [facility] Comment on above: Performed By: #### C MP ####[facility] Idaqoxbkhg[address] [place], [place] [address]Dr. Chapisrenu Heraclio EGFR-AF BELIZEAN >60 Normal >=60 [facility] Comment on above: Performed By: #### C MP ####[facility] Gmfcxpgiok16[address] [place], [place] [address]Dr. Garima Pulliam EGFR-NON AF BELIZEAN >60 Normal >=60 [facility] Comment on above: Performed By: #### C MP ####[facility] Ugxppbdfds1025 [place] [address]Dr. Garima Pulliam Globulin (S) [Mass/Vol] 2.7 g/dL Normal [facility] Comment on above: Performed By: #### C MP ####[facility] Vavojciaio5822 [place] [address]Dr. Garima Pulliam Glucose [Mass/Vol] 220 mg/dL Critically high 74-106 [facility] Comment on above: Performed By: #### C MP ####[facility] Dawwdkmayl5119 [place] [address]Dr. Garima Pulliam Potassium [Moles/Vol] 3.6 mmol/L Normal 3.5-5.1 [facility] Comment on above: Performed By: #### C MP ####[facility] Vvmfxvfayf[address] [place], [place] [address]Dr. Garima Pulliam Protein [Mass/Vol] 6.7 g/dL Normal 6.4-8.2 [facility] Comment on above: Performed By: #### C MP ####[facility] Lngsfvswxl[address] [place], [place] [address]Dr. Garima Pulliam Sodium [Moles/Vol] 139 mmol/L Normal 136-145 [facility] Comment on above: Performed By: #### C MP ####[facility] Qkhcsphlmx04[address] [place], [place] [address]Dr. Garima Pulliam Urea nitrogen [Mass/Vol] 11.0 mg/dL Normal 7.0-18.0 [facility] Comment on above: Performed By: #### C MP ####[facility] [address]hrfqjfboq[address] [place], [place] [address]Dr. Garima Pulliam Urea nitrogen/Creatinine [Mass ratio] 14.1 mg/mg Normal [facility] Comment on above: Performed By: #### C MP ####[facility] Heuaxfaaxb[address] [place], [place] [address]Dr. Garima Pulliam CARDIAC NASH 3-6on 2 CK [Catalytic activity/Vol] 240 U/L Normal 39-308 [facility] Comment on above: Performed By: #### C MREP ####[facility] Yupypridon[address] [place] [address]Dr. Garima Pulliam CK.MB [Mass/Vol] 10.38 ng/mL Critically high <=3.60 Th [facility] Comment on above: Performed By: #### C MREP ####[facility] Zxugenrczc0591 [place] [address]Dr. Garima Pulliam HSTROP 18.5 pg/mL Normal 4.0-76.1 [facility] Comment on above: Result Comment: CUT- OFF POINTS HAVE BEEN ESTABLISHED BASED ON THE FOURTH UNIVERSAL DEFINITIONS OF MYOCARDIALINFARCTION. THE UPPER REFERENCE LIMIT (URL) OF TROPONIN, DEFINED THE 99TH PERCENTILE OFcTnI DISTRIBUTION IN A REFERENCE POPULATION, HAS BEEN CONFIRMED THE DECISION THRESHOLDFOR [place] DIAGNOSIS. Performed By: #### C MREP ####[facility] Mctzbbobio5[address] [place] [address]Dr. Garima Pulliam CK [Catalytic activity/Vol] 257 U/L Normal 39-308 [facility] Comment on above: Performed By: #### C MREP ####[facility] Acyjpbtaqc[address] [place], [place] [address]Dr. Garima Pulliam CK.MB [Mass/Vol] 9.89 ng/mL Critically high <=3.60 [facility] Comment on above: Performed By: #### C MREP ####[facility] [address]tfzlomyag[address] [place], [place] [address]Dr. Garima Pulliam HSTROP 16.9 pg/mL Normal 4.0-76.1 [facility] Comment on above: Result Comment: CUT- OFF POINTS HAVE BEEN ESTABLISHED BASED ON THE FOURTH UNIVERSAL DEFINITIONS OF MYOCARDIALINFARCTION. THE UPPER REFERENCE LIMIT (URL) OF TROPONIN, DEFINED THE 99TH PERCENTILE OFcTnI DISTRIBUTION IN A REFERENCE POPULATION, HAS BEEN CONFIRMED THE DECISION THRESHOLDFOR [place] DIAGNOSIS. Performed By: #### C MREP ####[facility] Kuovpydxft[address] [place] [address]Dr. Garima Heraclio CBC AUTO DIFFon 10-22-2022 BASO # 0.0 103/ul Normal 0.0-0.1 [facility] Comment on above: Performed By: #### C BC ####[facility] Ddtwhyhocy8618 [place] [id number]. Garima Pulliam Basophils/100 WBC (Bld) 0.1 % Critically low 0.2-2.0 [facility] Comment on above: Performed By: #### C BC ####[facility] Sohehvclrs5[address] [place] [address]Dr. Garima Pulliam EO # 0.0 103/ul Normal 0.0-0.7 [facility] Comment on above: Performed By: #### C BC ####[facility] Pmopyldavg[address] [place], [place] [address]Dr. Chapisrenu Heraclio Eosinophils/100 WBC (Bld) 0.0 % Critically low 0.9-7.0 [facility] Comment on above: Performed By: #### C BC ####[facility] V[address]afgecqdw[address] [place], [place] [address]Dr. Garima Pulliam Erythrocyte distribution width (RBC) [Ratio] 13.6 % Normal 11.0-15.0 [facility] Comment on above: Performed By: #### C BC ####[facility] Fqyaitfppi[address] [place], [place] [address]Dr. Garima Pulliam Hematocrit (Bld) [Volume fraction] 48.2 % Normal 42.0-54.0 [facility] Comment on above: Performed By: #### C BC ####[facility] [address]vwydqjnfn[address] [place], [place] [address]Dr. Gairma Pulliam Hemoglobin (Bld) [Mass/Vol] 16.0 g/dL Normal 14.0-18.0 [facility] Comment on above: Performed By: #### C BC ####[facility] Jbnyldszct[address] [place], [place] [address]Dr. Chapisrenu Heraclio IG # 0.02 10e3/ul Normal 0.00-0.03 [facility] Comment on above: Performed By: #### C BC ####[facility] Cbmtekwiml4787 [place] [phone]. Garima Pulliam IG % 0.3 % Normal 0.0-0.5 [facility] Comment on above: Performed By: #### C BC ####[facility] Hoqcowdmdt8[address] [place] [address]Dr. Garima Heraclio LYMPH # 0.5 103/ul Critically low 1.2-3.8 [facility] Comment on above: Performed By: #### C BC ####[facility] Tzuaqdofml46[address] [place] [address]Dr. Garima Heraclio Lymphocytes/100 WBC (Bld) 7.7 % Critically low 20.5-60.0 [facility] Comment on above: Performed By: #### C BC ####[facility] Stzixpgoaw[address] [place], [place] [address]Dr. Chapisrenu Pulliam MANUAL DIFF REQ NO Normal The [facility] Comment on above: Performed By: #### C BC ####[facility] Icqxvekuix[address] [place], [place] [address]Dr. Garima Heraclio MCH (RBC) [Entitic mass] 30.6 pg Normal 25.9-34.0 [facility] Comment on above: Performed By: #### C BC ####[facility] Tsbsuzidiu[address] [place], [place] [address]Dr. Garima Pulliam MCHC (RBC) [Mass/Vol] 33.2 g/dL Normal 29.9-35.2 [facility] Comment on above: Performed By: #### C BC ####[facility] [address]mtapmhono[address] [place], [place] [address]Dr. Garima Heraclio MCV (RBC) [Entitic vol] 92.2 fL Normal 80.0-94.0 [facility] Comment on above: Performed By: #### C BC ####[facility] X[address]flxkfdq[address] [place], [place] [address]Dr. Garima Pulliam MONO # 0.0 103/ul Critically low 0.3-0.8 [facility] Comment on above: Performed By: #### C BC ####[facility] Gjclpqqlke7475 [place] [phone]. Garima Pulliam Monocytes/100 WBC (Bld) 0.4 % Critically low 1.7-12.0 [facility] Comment on above: Performed By: #### C BC ####[facility] Uanklxdsjq9282 [place] [address]Dr. Garima Pulliam NEUT # 6.2 103/ul Normal 1.4-6.5 [facility] Comment on above: Performed By: #### C BC ####[facility] Rjtdnfeaju5[address] [place] [address]Dr. Garima Pulliam Neutrophils/100 WBC (Bld) 91.5 % Critically high 43.0-75.0 [facility] Comment on above: Performed By: #### C BC ####[facility] Stzepkqoxj9[address] [place] [address]Dr. Garima Pulliam Platelet mean volume (Bld) [Entitic vol] 8.7 fL Critically low 9.5-13.5 [facility] Comment on above: Performed By: #### C BC ####[facility] Lqltdjypat[address] [place] [address]Dr. Garima Pulliam PLT 179 103/ul Normal 150-450 [facility] Comment on above: Performed By: #### C BC ####[facility] Aezgkedffx4305 [place] [address]Dr. Garima Pulliam RBC 5.23 106/ul Normal 4.70-6.10 [facility] Comment on above: Performed By: #### C BC ####[facility] Ufzxuwqcyu16[address] [place] [address]Dr. Garima Pulliam WBC 6.7 103/ul Normal 4.0-11.0 [facility] Comment on above: Performed By: #### C BC ####[facility] Oxgljoibsf4[address] [place] [address]Dr. Garima Pulliam PROF CHEM 8 (BAS METB)on Anion gap [Moles/Vol] 12.1 mmol/L Normal Th [facility] Comment on above: Performed By: #### B MP ####[facility] Kmppqyuozz0465 [place] [phone]. Garima Pulliam Calcium [Mass/Vol] 8.7 mg/dL Normal 8.5-10.[address] [facility] Comment on above: Performed By: #### B MP ####[facility] Lqowwbyzjx1553 [place] [phone]. Garima Pulliam Chloride [Moles/Vol] 105 mmol/L Normal 98-107 [facility] Comment on above: Performed By: #### B MP ####[facility] Cloriqnojl2256 [place] [address]Dr. Garima Pulliam CO2 [Moles/Vol] 25.5 mmol/L Normal 21.0-32.0 [facility] Comment on above: Performed By: #### B MP ####[facility] Nsmbfwvsmw01[address] [place] [address]Dr. Garima Pulliam Creatinine [Mass/Vol] 0.63 mg/dL Critically low 0.70-1.30 [facility] Comment on above: Performed By: #### B MP ####[facility] Nfrimixmcv3949 [place] [address]Dr. Garima Pulliam EGFR-AF BELIZEAN >60 Normal >=60 [facility] Comment on above: Performed By: #### B MP ####[facility] Fswztqcouc3[address] [place] [address]Dr. Garima Pulliam EGFR-NON AF BELIZEAN >60 Normal >=60 [facility] Comment on above: Performed By: #### B MP ####[facility] Yomycmlphi3771 [place] [address]Dr. Garima Pulliam Glucose [Mass/Vol] 162 mg/dL Critically high 74-106 [facility] Comment on above: Performed By: #### B MP ####[facility] [address]tmv[address] [place], [place] [address]Dr. Garima Pulliam Potassium [Moles/Vol] 3.6 mmol/L Normal 3.5-5.1 [facility] Comment on above: Performed By: #### B MP ####[facility] Fcfpfiuump[address] [place], [place] [address]Dr. Garima Pulliam Sodium [Moles/Vol] 139 mmol/L Normal 136-145 [facility] Comment on above: Performed By: #### B DAVID ####[facility] Mjmlcbwoxm9549 [place] [address]Dr. Garima Pulliam Urea nitrogen [Mass/Vol] 9.0 mg/dL Normal 7.0-18.0 [facility] Comment on above: Performed By: #### B DAVID ####[facility] Ivfvclpvro0094 [place] [address]Dr. Garima Pulliam Urea nitrogen/Creatinine [Mass ratio] 14.3 mg/mg Normal [facility] Comment on above: Performed By: #### B DAVID ####[facility] Lrfegffzee12[address] [place] [address]Dr. Chapisrenu Pulliam CARDIAC NASH ADMITon 09-12- 022 CK [Catalytic activity/Vol] 304 U/L Normal 39-308 [facility] Comment on above: Performed By: #### B NANCY HERNANDEZ ####[facility] Orwdwiqcfc6[address] [place] [address]Dr. Garima Pulliam CK.MB [Mass/Vol] 11.81 ng/mL Critically high <=3.60 Th [facility] Comment on above: Performed By: #### B NANCY HERNANDEZ ####[facility] Nlwsoznhyp58[address] [place] [address]Dr. Garima Heraclio HSTROP 13.3 pg/mL Normal 4.0-76.1 [facility] Comment on above: Result Comment: CUT- OFF POINTS HAVE BEEN ESTABLISHED BASED ON THE FOURTH UNIVERSAL DEFINITIONS OF MYOCARDIALINFARCTION. THE UPPER REFERENCE LIMIT (URL) OF TROPONIN, DEFINED THE 99TH PERCENTILE OFcTnI DISTRIBUTION IN A REFERENCE POPULATION, HAS BEEN CONFIRMED THE DECISION THRESHOLDFOR [place] DIAGNOSIS. Performed By: #### B NANCY HERNANDEZ ####[facility] Rdeivwputi20[address] [place] [address]Dr. Garima Pulliam DORIS 133 ng/mL Critically high 16-96 [facility] Comment on above: Performed By: #### B NANCY HERNANDEZ ####[facility] [address] [place] [address]Dr. Garima Pulliam CBC AUTO DIFFon 09-12-2022 BASO # 0.0 103/ul Normal 0.0-0.1 [facility] Comment on above: Performed By: #### C BC ####[facility] [address] [place], [place] [id number]. Garima Heraclio Basophils/100 WBC (Bld) 0.2 % Normal 0.2-2.0 [facility] Comment on above: Performed By: #### C BC ####[facility] [address] [place], [place] [address]Dr. Garima Heraclio EO # 0.2 103/ul Normal 0.0-0.7 [facility] Comment on above: Performed By: #### C BC ####[facility] [address] [place], [place] [address]Dr. Chapisrenu Pulliam Eosinophils/100 WBC (Bld) 1.3 % Normal 0.9-7.0 [facility] Comment on above: Performed By: #### C BC ####[facility] B[address] [place], [place] [address]Dr. Garima Pulliam Erythrocyte distribution width (RBC) [Ratio] 13.7 % Normal 11.0-15.0 [facility] Comment on above: Performed By: #### C BC ####[facility] [address] [place], [place] [address]Dr. Garima Pulliam Hematocrit (Bld) [Volume fraction] 46.4 % Normal 42.0-54.0 [facility] Comment on above: Performed By: #### C BC ####[facility] [address] [place], [place] [address]Dr. Garima Pulliam Hemoglobin (Bld) [Mass/Vol] 15.7 g/dL Normal 14.0-18.0 [facility] Comment on above: Performed By: #### C BC ####[facility] [address] [place], [place] [address]Dr. Garima Pulliam IG # 0.04 10e3/ul Critically high 0.00-0.03 [facility] Comment on above: Performed By: #### C BC ####[facility] [address] [place] [address]Dr. Garima Pulliam IG % 0.3 % Normal 0.0-0.5 [facility] Comment on above: Performed By: #### C BC ####[facility] [address] [place] [address]Dr. Garima Pulliam LYMPH # 1.7 103/ul Normal 1.2-3.8 [facility] Comment on above: Performed By: #### C BC ####[facility] [address] [place] [address]Dr. Garima Pulliam Lymphocytes/100 WBC (Bld) 11.5 % Critically low 20.5-60.0 [facility] Comment on above: Performed By: #### C BC ####[facility] [address] [place] [phone]. Garima Pulliam MANUAL DIFF REQ NO Normal [facility] Comment on above: Performed By: #### C BC ####[facility] [address] [place] [phone]. Garima Pulliam MCH (RBC) [Entitic mass] 31.0 pg Normal 25.9-34.0 [facility] Comment on above: Performed By: #### C BC ####[facility] [address] [place] [address]Dr. Garima Pulliam MCHC (RBC) [Mass/Vol] 33.8 g/dL Normal 29.9-35.2 [facility] Comment on above: Performed By: #### C BC ####[facility] [address] [place] [address]Dr. Garima Pulliam MCV (RBC) [Entitic vol] 91.7 fL Normal 80.0-94.0 [facility] Comment on above: Performed By: #### C BC ####[facility] [address] [place] [address]Dr. Garima Heraclio MONO # 0.8 103/ul Normal 0.3-0.8 [facility] Comment on above: Performed By: #### C BC ####[facility] [address] [place] [address]Dr. Garima Pulliam Monocytes/100 WBC (Bld) 5.2 % Normal 1.7-12.0 [facility] Comment on above: Performed By: #### C BC ####[facility] [address] [place] [address]Dr. Garima Pulliam NEUT # 11.7 103/ul Critically high 1.4-6.5 [facility] Comment on above: Performed By: #### C BC ####[facility] [address] [place] [phone]. Garima Pulliam Neutrophils/100 WBC (Bld) 81.5 % Critically high 43.0-75.0 [facility] Comment on above: Performed By: #### C BC ####[facility] [address] [place] [address]Dr. Garima Pulliam Platelet mean volume (Bld) [Entitic vol] 8.6 fL Critically low 9.5-13.5 [facility] Comment on above: Performed By: #### C BC ####[facility] [address] [place] [phone]. Garima Pulliam PLT 191 103/ul Normal 150-450 [facility] Comment on above: Performed By: #### C BC ####[facility] Y[address] [place], [place] [address]Dr. Garima Pulliam RBC 5.06 106/ul Normal 4.70-6.10 [facility] Comment on above: Performed By: #### C BC ####[facility] [address] [place], [place] [address]Dr. Garima Pulliam WBC 14.4 103/ul Critically high 4.0-11.0 [facility] Comment on above: Performed By: #### C BC ####[facility] [address] [place], [place] [address]Dr. Garima Pulliam [facility] SARS-CoV-2 (COVID-19) RNA MARIE+probe Ql (Unsp spec) Not detected Normal NOT DETECTED [facility] Comment on above: Result Comment: When [...] for this test is supported by the Operations Research Analyst of Health and Human Service's declaration that [...] By: #### C VDTBH ####[facility] [address] [place], [place] [address]Dr. Garima Pulliam LACTATE/LACTIC ACIDon 2021 Lactate [Moles/Vol] 1.0 mmol/L Normal 0.4-1.9 [facility] Comment on above: Performed By: #### L ACT ####[facility] [address] [place], [place] [address]Dr. Garima Pulliam PROF CHEM 8 (BAS METB)on Anion gap [Moles/Vol] 11.6 mmol/L Normal [facility] Comment on above: Performed By: #### B NANCY HERNANDEZ ####[facility] [address] [place] [address]Dr. Garima Pulliam Calcium [Mass/Vol] 9.2 mg/dL Normal 8.5-10.1 [facility] Comment on above: Performed By: #### B NANCY HERNANDEZ ####[facility] [address] [place] [address]Dr. Garima Pulliam Chloride [Moles/Vol] 105 mmol/L Normal 98-107 [facility] Comment on above: Performed By: #### B MP, CMADM ####[facility] [address] [place] [address]Dr. Garima Pulliam CO2 [Moles/Vol] 25.9 mmol/L Normal 21.0-32.0 [facility] Comment on above: Performed By: #### B DAVID, CMADM ####[facility] [address] [place] [address]Dr. Garima Pulliam Creatinine [Mass/Vol] 0.72 mg/dL Normal 0.70-1.30 [facility] Comment on above: Performed By: #### B DAVID, CMADM ####[facility] [address] [place] [address]Dr. Garima Pulliam EGFR-AF BELIZEAN >60 Normal >=60 [facility] Comment on above: Performed By: #### B DAVID, CMADM ####[facility] [address] [place] [address]Dr. Chapisrenu Pulliam EGFR-NON AF BELIZEAN >60 Normal >=60 [facility] Comment on above: Performed By: #### B DAVID, CMAANA ROSA ####[facility] [address] [place] [address]Dr. Garima Pulliam Glucose [Mass/Vol] 111 mg/dL Critically high 74-106 [facility] Comment on above: Performed By: #### B DAVID, CMADM ####[facility] [address] [place] [address]Dr. Chapisrenu Pulliam Potassium [Moles/Vol] 3.5 mmol/L Normal 3.5-5.1 [facility] Comment on above: Performed By: #### B DAVID, CMADM ####[facility] [address] [place] [address]Dr. hCapisrenu Pulliam Sodium [Moles/Vol] 139 mmol/L Normal 136-145 [facility] Comment on above: Performed By: #### B DAVID, CMADM ####[facility] [address] [place] [address]Dr. Garima Pulliam Urea nitrogen [Mass/Vol] 7.0 mg/dL Normal 7.0-18.0 [facility] Comment on above: Performed By: #### B DAVID, CMADM ####[facility] [address] [place], [place] [address]Cn. Garima Pulliam Urea nitrogen/Creatinine [Mass ratio] 9.7 mg/mg Normal [facility] Comment on above: Performed By: #### B MP, CMADM ####[facility] [address] [place], [place] [address]Kj. Garima Pulliam XR CHEST 1 Von 09-12-2022 [...] Facility:[facility] Payers Date Payer Category Payer Unknown [id number] 1960 Medicaid [id number] 1960 Unknown [id number] 1960 Unknown [id number] 1955 Unknown [id number] 2.16.84 0.1.736629.3.579.2.593 1954 Unknown [id number] 2.16.84 0.1.497266.3.579.2.593 1954 Unknown [id number] 2.16.84 0.1.248433.3.579.2.593 1954 Unknown [id number] 2.16.84 0.1.491000.3.579.2.593 1954 Unknown [id number] 2.16.84 0.1.439632.3.579.2.593 1954 Unknown [id number] 2.16.84 0.1.773009.3.579.2.593 1954 Unknown [id number] 2.16.84 0.1.872369.3.579.2.593 1954 Unknown [id number] 2.16.84 0.1.310227.3.579.2.593 1954 Unknown [id number] 2.16.84 0.1.775665.3.579.2.593 1954 Unknown [id number] 2.16.84 0.1.445966.3.579.2.593 1954 Unknown [id number] 2.16.84 0.1.777486.3.579.2.593 1954 Unknown [id number] 2.16.84 0.1.444706.3.579.2.593 1954 Unknown [id number] 2.16.84 0.1.007143.3.579.2.593 1954 Unknown [id number] 2.16.84 0.1.971510.3.579.2.593 1954 Unknown [id number] 2.16.84 0.1.460873.3.579.2.593 1954 Unknown [id number] 2.16.84 0.1.560617.3.579.2.593 1954 Unknown [id number] 2.16.84 0.1.293574.3.579.2.593 1954 Unknown [id number] 2.16.84 0.1.639740.3.579.2.593 1954 Unknown [id number] 2.16.84 0.1.738555.3.579.2.593 1954 Unknown [id number] 2.16.84 0.1.028987.3.579.2.593 Summary Purpose Family History No Family History Records Found Advance Directives No Advanced Directives Records Found Additional Source Comments (unrecognized sect ion and content) No Status Records Found INFORMATION SOURCE (unrecogn ized section and content) DATE CREATED AUTHOR 04/08/2023 [facility] FOR RECORDS PERTAINING TO PATIENTS [...] BE BASED ON THE PRIMARY CLINICAL RECORDS. [facility] [employer] [facility]. provides no warranty or guarantee of the accuracy or completeness of information in this document.
--- NOTE | 2024-09-28 07:58 | ECG_ITS ---
[facility] Test Date: 2024-09-28 Pat Name: CONSTANZA BARRETO Department: Room: - Gender: Male [place] Turner: : 1955 Requested By: Order Number: [id number] Reading MD: DOMI RÍOS Measurements Intervals [place] Rate: 66 P: 76 W[place]: 202 QRS: -37 QRSD: 114 T: 30 QT: 400 QTc: 413 Interpretive Statements 1100 Sinus rhythm 1570 with occasional ventricular premature complexes 3434 Septal myocardial infarction, age undetermined [address] depression 4564 Twave abnormality, possible lateral ischemia 7200 Abnormal left axis deviation 9150 abnormal ECG Electronically Signed On 09-29-2024 6:15:17 EST by DOMI RÍOS
--- NOTE | 2024-09-28 07:58 | XR_ITS ---
[address] [address] Patient Name: CONSTANZA BARRETO MRN: [id number] date: 1955 Sex: M Assigned Patient Location: ER Current Patient Location: ER Accession/Order Number: [id number] Exam Date: 09/28/2024 08:15 Report Date: 09/28/2024 08:45 At the request of: DOMINGUEZ CURTIS Procedure: XR chest 1V EXAMINATION: XR chest 1V HISTORY: sob COMPARISON: 09/21/2024 TECHNIQUE: AP portable FINDINGS: LUNGS: No significant pulmonary parenchymal abnormalities. VASCULATURE: No increased pulmonary vasculature. PLEURA: No pneumothorax, effusion, or pleural thickening. CARDIAC: No cardiomegaly or cardiac silhouette abnormality. MEDIASTINUM: No visible mass or adenopathy. BONES: No fracture or visible bone lesion. Multiple remote left posterior healed rib fractures OTHER: Negative. XR/XR chest 1V IMPRESSION: No acute cardiopulmonary process Electronically authenticated by: REGINALDO JAIN Date: 09/28/2024 08:45
[2024-09-28 08:00] VITALS: O2SAT 94
[2024-09-28] MEDS: IPRATROPIUM/ALBUTEROL SULFATE 3 ML AMPUL.NEB IH (08:04)
[2024-09-28 08:08] VITALS: PULSE 64; O2SAT 97
[2024-09-28] MEDS: DEXAMETHASONE SOD PHOS 10 MG/ML VIAL IV (08:14)
[2024-09-28 08:15] VITALS: PULSE 65; O2SAT 93
[2024-09-28 08:17] LABS: Basophils Percent Auto 0.3 % (0.2-2.0); Eosinophils Absolute Auto 0.2 10^3/uL (0.0-0.7); Eosinophils Percent Auto 2.4 % (0.9-7.0); Hemoglobin 14.1 g/dL (14.0-18.0); Immature Granulocytes Abs Auto 0.01 10^3/uL (0.00-0.03); Immature Granulocytes Pct Auto 0.1 % (0.0-0.5); Lymphocytes Absolute Auto 1.5 10^3/uL (1.2-3.8); Lymphocytes Percent Auto 21.5 % (20.5-60.0); Mean Corpuscular HGB Conc 34.4 g/dL (29.9-35.2); Mean Corpuscular Hemoglobin 30.1 pg (25.9-34.0); Mean Corpuscular Volume 87.4 fL (80.0-94.0); Mean Platelet Volume 9.1 fL (9.5-13.5); Monocytes Absolute Auto 0.5 10^3/uL (0.3-0.8); Monocytes Percent Auto 6.8 % (1.7-12.0); Neutrophils Absolute Auto 4.9 10^3/uL (1.4-6.5); Neutrophils Percent Auto 68.9 % (43.0-75.0); Platelet Count 169 10^3/uL (150-450); Red Blood Count 4.69 10^6/uL (4.70-6.10); Red Cell Distribution Width 13.3 % (11.0-15.0); White Blood Count 7.2 10^3/uL (4.0-11.0)
[2024-09-28 08:41] LABS: Alanine Aminotransferase 51 U/L (16-63); Albumin Globulin Ratio 1.3; Albumin Level 3.2 g/dL (3.4-5.0); Alkaline Phosphatase 96 U/L (46-116); Anion Gap 9.7; Aspartate Amino Transferase 19 U/L (15-37); BUN Creatinine Ratio 10.1; Bilirubin Total 0.5 mg/dL (0.2-1.0); Chloride 100 mmol/L (98-107); Estimated GFR (African America >60 (>=60 mL/min/1.73m^2); Estimated GFR (Non-African Ame >60 (>=60 mL/min/1.73m^2); Globulin 2.4 g/dL; Glucose 361 mg/dL (74-106); Sodium 137 mmol/L (136-145); Total Protein 5.6 g/dL (6.4-8.2); Troponin I High Sensitivity 26.3 pg/mL (4.0-76.1)
[2024-09-28 08:43] LABS: Potassium 2.7 mmol/L (3.5-5.1)
[2024-09-28] MEDS: POTASSIUM CHLORIDE 10 MEQ ER TABLET 40 MEQ PO (08:51)
--- NOTE | 2024-09-28 08:59 | ED.SOB1 ---
HPI - SOB/Dyspnea General Chief Complaint: Shortness of Breath/Dyspnea Stated Complaint: SOB and BLEEDING FROM THE RECTUM Time Seen by Provider: 09/28/24 07:43 Source: patient Mode of arrival: Wheelchair Limitations: no limitations History of Present Illness HPI Narrative: Patient presents to ED complaining of shortness of breath and also some rectal bleeding. He has a chronic history of COPD. He states he has been feeling a little more short of breath recently. No acute respiratory distress and no hypoxia at this time. Patient denies chest pain. Patient does state the last couple of times he is going to the bathroom and wiped there is a little bit of blood on the toilet paper. He denies any gross blood per rectum or gross bloody bowel movements. He does report that his stool has seemed slightly dark. No abdominal pain. Nausea vomiting. No fevers. No productive cough. He is resting comfortably in the bed in no acute distress. Related Data Home Medications ?Medication ?Instructions ?Recorded ?Confirmed albuterol sulfate 90 mcg/actuation 2 inh inhalation Q6H PRN shortness 03/13/24 08/25/24 aerosol inhaler of breath or wheezing Previous Rx's ?Medication ?Instructions ?Recorded losartan 100 mg tablet 100 mg PO DAILY #30 tabs 12/27/23 albuterol sulfate 2.5 mg/3 mL 2.5 mg (3 mL) inhalation Q6H PRN 05/26/24 (0.083 %) solution for nebulization shortness of breath or wheezing #90 mL loratadine 10 mg tablet (Claritin) 10 mg PO DAILY #20 tabs 05/30/24 albuterol sulfate 2.5 mg/3 mL 2.5 mg (3 mL) inhalation Q6H PRN 08/07/24 (0.083 %) solution for nebulization shortness of breath or wheezing #90 mL albuterol sulfate 90 mcg/actuation 2 inh inhalation Q4H PRN shortness 08/07/24 aerosol inhaler of breath or wheezing #8.5 grams albuterol sulfate 2.5 mg/3 mL 1.25 mg (1.5 mL) inhalation Q6H 09/04/24 (0.083 %) solution for nebulization PRN bronchospasm #75 mL albuterol sulfate 90 mcg/actuation 2 inh inhalation Q6H PRN shortness 09/04/24 aerosol inhaler of breath or wheezing #6.7 grams albuterol sulfate 2.5 mg/3 mL 2.5 mg (3 mL) inhalation Q6H PRN 09/12/24 (0.083 %) solution for nebulization shortness of breath or wheezing #90 mL azithromycin 250 mg tablet See Rx Instructions PO .COMPLEX #6 09/21/24 (Zithromax Z-Luis) tabs prednisone 20 mg tablet See Rx Instructions .Route 09/21/24 .COMPLEX #12 tabs Allergies Allergy/AdvReac Type Severity Reaction Status Date / Time No Known Drug Allergies Allergy Verified 09/28/24 07:51 Review of Systems ROS Status of ROS 10 or more systems reviewed and unremarkable except as noted in history and below [facility] Medical History (Updated 09/28/24 @ 09:40 by Rochelle Tan DO) Hypokalemia ?E87.6 - Hypokalemia (ICD-10) New onset type 2 diabetes mellitus ?E11.9 - Type 2 diabetes mellitus without complications (ICD-10) Lower extremity edema ?R60.0 - Localized edema (ICD-10) Edema ?R60.9 - Edema, unspecified (ICD-10) Acute hyperglycemia ?R73.9 - Hyperglycemia, unspecified (ICD-10) Tobacco abuse ?Z72.0 - Tobacco use (ICD-10) HTN (hypertension) ?I10 - Essential (primary) hypertension (ICD-10) Community acquired pneumonia ?J18.9 - Pneumonia, unspecified organism (ICD-10) Chronic obstructive pulmonary disease ?J44.9 - Chronic obstructive pulmonary disease, unspecified (ICD-10) Acute exacerbation of chronic obstructive pulmonary disease (COPD) ?J44.1 - Chronic obstructive pulmonary disease with (acute) exacerbation (ICD-10) RLL pneumonia ?J18.9 - Pneumonia, unspecified organism (ICD-10) COPD (chronic obstructive pulmonary disease) ?J44.9 - Chronic obstructive pulmonary disease, unspecified (ICD-10) Surgical History (Updated 01/29/24 @ 06:45 by Latonia Martin RN) Hx of tonsillectomy ?Z90.89 - Acquired absence of other organs (ICD-10) Family History (Updated 12/25/23 @ 21:28 by Kym Ordaz) Mother Family history of cancer Family history of hypertension Father Family history of cancer Social History Within the past year, how often did you have a drink containing alcohol: 4 or more times a week Within the past year, how many standard drinks containing alcohol did you have on a typical day: 3 or 4 Within the past year, how often did you have six or more drinks on one occasion: less than monthly Total score: 3 Score interpretation: A score of 4 or more indicates drinking is likely to affect patient's safety. Smoking status: Current every day smoker Non-prescribed substance use: cannabis (any form) Previous occupational history: retired Highest level of school completed/degree received: high school graduate Are you now , , , , never or living with a partner: In a typical week, how many times do you talk on the telephone with family, friends, or neighbors: twice per week How often do you get together with friends or relatives: once per week How often do you attend mu-ism or yarsani services: never Do you belong to any clubs or organizations such as mu-ism groups unions, [employer] or athletic groups, or school groups: no Total score: 1 Score interpretation: A score of less than or equal to 1 indicates the most socially isolated. Little interest or pleasure in doing things: not at all Feeling down, depressed, or hopeless: not at all Feel stressed/tense/nervous/anxious/difficulty sleeping: not at all Do you think of yourself as: straight/heterosexual Gender Identity: male Exam Narrative Exam Narrative: Time Seen: [] Vital Signs: [Per nurse's notes.] General: [Alert] Skin: [Warm, dry, no rash.] Head: [Normocephalic, atraumatic.] Neck: [Supple, trachea midline.] Eye: [Pupils are equal, round and reactive to light, extraocular movements are intact, normal conjunctiva.] Ears, nose, mouth and throat: oral mucosa moist. Cardiovascular: [Regular rate and rhythm, no murmur.] Respiratory: [Breath sounds diminished bilaterally. No acute respiratory distress, mild wheezing bilaterally Chest wall: [No tenderness, no deformity.] Gastrointestinal: [Soft, nontender, non distended, normal bowel sounds.] Rectal exam reveals pinkish blood. Small hemorrhoid no diffuse bleeding or active bleeding. MSK: 5 out of 5 muscle strength x 4 extremities no calf pain or edema Lymphatics: [No lymphadenopathy.] Psychiatric: [Cooperative, appropriate mood & affect.] Neurological: [Alert and oriented to person, place, time, and situation, no focal neurological deficit observed.] Constitutional Vital Signs, click to edit/add: Last Vital Signs Temp 98.7 F 09/28/24 07:51 Pulse 65 09/28/24 08:15 Resp 18 09/28/24 08:15 BP 167/96 H 09/28/24 07:51 Pulse Ox 93 L 09/28/24 08:15 O2 Del Method Room Air 09/28/24 08:08 Course Vital Signs Vital signs: Vital Signs Blood Pressure 167/96 H 09/28/24 07:50 Pulse Oximetry 90 L 09/28/24 07:50 Temperature 98.7 F 09/28/24 07:51 Pulse Rate 65 09/28/24 08:15 Respiratory Rate 18 09/28/24 08:15 Blood Pressure 167/96 H 09/28/24 07:51 Pulse Oximetry 93 L 09/28/24 08:15 Oxygen Delivery Method Room Air 09/28/24 08:08 MDM - SOB/Dyspnea MDM Narrative Medical decision making narrative: DuoNeb was ordered for his shortness of breath. Potassium was low which is a chronic issue for him. Potassium p.o. was ordered. Patient is stable Otherwise labs and imaging are nonacute. Patient's potassium was replaced here. No evidence for need for inpatient admission at this time. Patient is stable for discharge home. Patient is comfortable with care plan for home. He does need some care for his feet and I will refer him to podiatry as well. No evidence of acute OH or pneumonia. No severe exacerbation of his COPD. Hemoglobin stable. Occult blood was positive but it was very minimal on exam I am not worried at this time for massive GI bleed although instructions were given to return if worsening symptoms. Differential Diagnosis Differential diagnosis: Likely acute exacerbation of chronic obstructive airways disease, congestive heart failure, community acquired pneumonia, asthma with exacerbation and other (Hypokalemia, dehydration) Medical Records Attestation: I reviewed the patient's medical records. Lab Data Attestation: I reviewed the patient's lab results. Labs: Lab Results 09/28/24 09/28/24 Range/Units 07:35 08:10 WBC 7.2 (4.0-11.0) 10^3/uL RBC 4.69 L (4.70-6.10) 10^6/uL Hgb 14.1 (14.0-18.0) g/dL Hct 41.0 L (42.0-54.0) % MCV 87.4 (80.0-94.0) fL MCH 30.1 (25.9-34.0) pg MCHC 34.4 (29.9-35.2) g/dL RDW 13.3 (11.0-15.0) % Plt Count 169 (150-450) 10^3/uL MPV 9.1 L (9.5-13.5) fL Neut % (Auto) 68.9 (43.0-75.0) % Lymph % (Auto) 21.5 (20.5-60.0) % [place] % (Auto) 6.8 (1.7-12.0) % Eos % (Auto) 2.4 (0.9-7.0) % Baso % (Auto) 0.3 (0.2-2.0) % Neut # (Auto) 4.9 (1.4-6.5) 10^3/uL Lymph # (Auto) 1.5 (1.2-3.8) 10^3/uL [place] # (Auto) 0.5 (0.3-0.8) 10^3/uL Eos # (Auto) 0.2 (0.0-0.7) 10^3/uL Baso # (Auto) 0.0 (0.0-0.1) 10^3/uL Abs Immat Gran (auto) 0.01 (0.00-0.03) 10^3/uL Imm/Tot Granulo (auto) 0.1 (0.0-0.5) % Sodium 137 (136-145) mmol/L Potassium 2.7 L* (3.5-5.1) mmol/L Chloride 100 (98-107) mmol/L Carbon Dioxide 30.0 (21.0-32.0) mmol/L Anion Gap 9.7 BUN 8.0 (7.0-18.0) mg/dL Creatinine 0.79 (0.70-1.30) mg/dL Est GFR ( Amer) >60 (>=60 mL/min/1.73m^2) Est GFR (Non-Af Amer) >60 (>=60 mL/min/1.73m^2) BUN/Creatinine Ratio 10.1 Glucose 361 H (74-106) mg/dL Calcium 8.0 L (8.5-10.1) mg/dL Total Bilirubin 0.5 (0.2-1.0) mg/dL AST 19 (15-37) U/L ALT 51 (16-63) U/L Alkaline Phosphatase 96 (46-116) U/L Troponin I High Sens 26.3 (4.0-76.1) pg/mL NT-Pro-B Natriuret Pep 626.0 (<=900.0) pg/mL Total Protein 5.6 L (6.4-8.2) g/dL Albumin 3.2 L (3.4-5.0) g/dL Globulin 2.4 g/dL Albumin/Globulin Ratio 1.3 Stool Occult Blood Positive A Imaging Data Chest x-ray: Radiologist's impression: ITS Impressions Chest X-Ray 09/28/24 07:58 IMPRESSION: No acute cardiopulmonary process Electronically authenticated by: REGINALDO JAIN Date: 09/28/2024 08:45 ECG Data Attestation: I personally reviewed and interpreted this ECG as follows: Interpretation: EKG INTERPRETATION Time: [] 806 Rate: [] 66 Rhythm: _ [] Sinus rhythm occasional PVCs ST segments: _ [] No acute ST elevation or depression T waves: _ [] Ectopy: _ [] P wave/PA interval: _ [] QRS interval: _ [] QT interval: _ [] Comparison: _ [] Comparison EKG date: [] Performed by: [self] Discharge Plan Discharge Chief Complaint: Shortness of Breath/Dyspnea Clinical Impression: COPD (chronic obstructive pulmonary disease), Painless rectal bleeding, Hypokalemia Patient Disposition: Home, Self-Care Time of Disposition Decision: 09:40 Condition: Good Mode of Transportation: Private Vehicle Prescriptions / Home Meds: No Action losartan 100 mg tablet 100 mg PO DAILY Qty: 30 11RF albuterol sulfate 90 mcg/actuation HFA aerosol inhaler 2 inh inhalation Q6H PRN (Reason: shortness of breath or wheezing) albuterol sulfate 2.5 mg /3 mL (0.083 %) solution for nebulization 2.5 mg inhalation Q6H PRN (Reason: shortness of breath or wheezing) Qty: 90 0RF albuterol sulfate 2.5 mg /3 mL (0.083 %) solution for nebulization 2.5 mg inhalation Q6H PRN (Reason: shortness of breath or wheezing) Qty: 90 0RF albuterol sulfate 90 mcg/actuation HFA aerosol inhaler 2 inh inhalation Q4H PRN (Reason: shortness of breath or wheezing) Qty: 8.5 0RF albuterol sulfate 2.5 mg /3 mL (0.083 %) solution for nebulization 2.5 mg inhalation Q6H PRN (Reason: shortness of breath or wheezing) Qty: 90 0RF azithromycin [Zithromax Z-Luis] 250 mg tablet See Rx Instructions .ROUTE .COMPLEX Qty: 6 0RF Rx Instructions: For 250 mg dose pack: take 500 mg today (day 1), then 250 mg for 4 days (days 2-5) prednisone 20 mg tablet See Rx Instructions .ROUTE .COMPLEX Qty: 12 0RF Rx Instructions: 3 tabs daily for 2 days, then 2 tabs daily for 2 days, then 1 tab daily for 2 days loratadine [Claritin] 10 mg tablet 10 mg PO DAILY Qty: 20 0RF albuterol sulfate 2.5 mg /3 mL (0.083 %) solution for nebulization 1.25 mg inhalation Q6H PRN (Reason: bronchospasm) Qty: 75 0RF albuterol sulfate 90 mcg/actuation HFA aerosol inhaler 2 inh inhalation Q6H PRN (Reason: shortness of breath or wheezing) Qty: 6.7 0RF Print Language: Japanese Instructions: COPD (Chronic Obstructive Pulmonary Disease) (ED) Referrals: SERG DUENAS [Primary Care Provider] - 1 week
[2024-09-28 09:23] LABS: Internal Control Within Normal Limits; Occult Blood Positive
== END 2024-09-28 10:12 | disposition home or self-care (01) ==
PROVIDERS: Emergency Provider Emergency Medicine
DX: E87.6 Hypokalemia (principal); K62.5 Hemorrhage of anus and rectum; J44.9 Chronic obstructive pulmonary disease, unspecified; F17.200 Nicotine dependence, unspecified, uncomplicated
CPT/HCPCS: 36415; 71045; 80053; 83880; 84484; 85025; 93005; 94640; 96374; 99285; G0328; J1100

== ENCOUNTER 2024-09-30 23:57 | Emergency (ER) | payer MEDICARE, SELFPAY ==
--- OUTSIDE RECORDS SUMMARY | 2024-10-01 00:03 | XMS_ITS | CCD ---
Author Organization [facility] CliniSyhi Care Team Providers Care Clinical Sales Consultant Name Role Phone REQUEST, DR NONE LISTED [...] Facility (1 source) Penicillin Drug Allergy [facility] Repository Problems Active Problems Problem Classification [...] 03-27-2023 Episodic Other aftercare (1 source) Other long term care phlebotomist (current) drug therapy; Translations: [OTH OPERATOR AUTOMATED PROCESS CURRENT DRUG THERAPY] Onset: 04-07-2023 Episodic Other [...] BASO # 0.0 103/ul Normal 0.0-0.1 [facility] Comment on above: Performed By: #### C BC ####[facility] Hxkwygbsze[address] [place] [address]Dr. Garima Pulliam Basophils/100 WBC (Bld) 0.3 % Normal 0.2-2.0 [facility] Comment on above: Performed By: #### C BC ####[facility] Fhdyjltrzu[address] [place] [address]DrAdalberto Pulliam EO # 0.3 103/ul Normal 0.0-0.7 [facility] Comment on above: Performed By: #### C BC ####[facility] Ybmpjfri[address] [place], [place] [address]Dr. Garima Pulliam Eosinophils/100 WBC (Bld) 2.8 % Normal 0.9-7.0 [facility] Comment on above: Performed By: #### C BC ####[facility] Ozkeexzpow8559 [place] [address]Dr. Garima Pulliam Erythrocyte distribution width (RBC) [Ratio] 13.4 % Normal 11.0-15.0 [facility] Comment on above: Performed By: #### C BC ####[facility] Texcnbzobv78[address] [place] [address]Dr. Garima Pulliam Hematocrit (Bld) [Volume fraction] 45.7 % Normal 42.0-54.0 [facility] Comment on above: Performed By: #### C BC ####[facility] Svfwkxzujn4891 [place] [address]Dr. Garima Pulliam Hemoglobin (Bld) [Mass/Vol] 15.2 g/dL Normal 14.0-18.0 [facility] Comment on above: Performed By: #### C BC ####[facility] Xmmcbuvvhy9739 [place] [address]Dr. Garima Pulliam IG # 0.02 10e3/ul Normal 0.00-0.03 [facility] Comment on above: Performed By: #### C BC ####[facility] Tzjtvkblkw2275 [place] [address]Dr. Garima Pulliam IG % 0.2 % Normal 0.0-0.5 [facility] Comment on above: Performed By: #### C BC ####[facility] Xttwawwbly55[address] [place] [address]Dr. Garima Pulliam LYMPH # 2.1 103/ul Normal 1.2-3.8 [facility] Comment on above: Performed By: #### C BC ####[facility] Skveetxxuy1841 [place] [address]Dr. Garima Pulliam Lymphocytes/100 WBC (Bld) 23.7 % Normal 20.5-60.0 [facility] Comment on above: Performed By: #### C BC ####[facility] Ryfywbuxwm1155 [place] [address]Dr. Garima Heraclio MANUAL DIFF REQ NO Normal [facility] Comment on above: Performed By: #### C BC ####[facility] Vjkayqvqct8[address] [place] [address]Dr. Garima Pulliam MCH (RBC) [Entitic mass] 30.4 pg Normal 25.9-34.0 [facility] Comment on above: Performed By: #### C BC ####[facility] Dohlbucyix2411 [place] [address]Dr. Garima Heraclio MCHC (RBC) [Mass/Vol] 33.3 g/dL Normal 29.9-35.2 [facility] Comment on above: Performed By: #### C BC ####[facility] Cgxtdiixlm[address] [place], [place] [address]Dr. Chapisrenu Pulliam MCV (RBC) [Entitic vol] 91.4 fL Normal 80.0-94.0 [facility] Comment on above: Performed By: #### C BC ####[facility] Nthyyekzug[address] [place], [place] [address]Dr. Garima Heraclio MONO # 0.7 103/ul Normal 0.3-0.8 [facility] Comment on above: Performed By: #### C BC ####[facility] Ycqtchruyi[address] [place], [place] [address]Dr. Chapisrenu Pulliam Monocytes/100 WBC (Bld) 8.3 % Normal 1.7-12.0 [facility] Comment on above: Performed By: #### C BC ####[facility] Izopgohipe1620 [place] [address]Dr. Chapisrenu Heraclio NEUT # 5.8 103/ul Normal 1.4-6.5 [facility] Comment on above: Performed By: #### C BC ####[facility] Obruhucoug[address] [place], [place] [address]Dr. Garima Pulliam Neutrophils/100 WBC (Bld) 64.7 % Normal 43.0-75.0 [facility] Comment on above: Performed By: #### C BC ####[facility] Cnfeoksfdv8613 [place] [address]Dr. Garima Pulliam Platelet mean volume (Bld) [Entitic vol] 8.6 fL Critically low 9.5-13.5 [facility] Comment on above: Performed By: #### C BC ####[facility] Fsfsyxrfwt4235 [place] [address]Dr. Garima Pulliam PLT 230 103/ul Normal 150-450 [facility] Comment on above: Performed By: #### C BC ####[facility] Ygoaxscvvx1045 [place] [address]Dr. Chapisrenu Heraclio RBC 5.00 106/ul Normal 4.70-6.10 [facility] Comment on above: Performed By: #### C BC ####[facility] Stuljzbjob5001 [place] [address]Dr. Garima Heraclio WBC 9.0 103/ul Normal 4.0-11.0 [facility] Comment on above: Performed By: #### C BC ####[facility] Kmbfnzuhgr57[address] [place] [address]Dr. Garima Pulliam MAGNESIUMon 04-04-2023 Magnesium [Mass/Vol] 1.8 mg/dL Normal 1.8-2.4 [facility] Comment on above: Performed By: #### M G ####[facility] Lsbyvonkkl9788 [place] [address]Dr. Chapisrenu Pulliam PROF 14(COMP METB)on 023 Albumin [Mass/Vol] 3.8 g/dL Normal 3.4-5.[address] [facility] Comment on above: Performed By: #### C MP ####[facility] Diwvaymuli8688 [place] [address]Dr. Garima Pulliam Albumin/Globulin [Mass ratio] 1.2 {ratio} Normal [facility] Comment on above: Performed By: #### C MP ####[facility] Kuscmqarkr3563 [place] [address]Dr. Garima Heraclio ALP [Catalytic activity/Vol] 84 U/L Normal 46-116 [facility] Comment on above: Performed By: #### C MP ####[facility] Udhoizfssw5414 [place] [id number]. Garima Pulliam ALT [Catalytic activity/Vol] 31 U/L Normal 16-63 [facility] Comment on above: Performed By: #### C MP ####[facility] Llyfnvzkra3220 [place] [address]Dr. Garima Pulliam Anion gap [Moles/Vol] 12.2 mmol/L Normal [facility] Comment on above: Performed By: #### C MP ####[facility] Daziyxkrwo1416 [place] [address]Dr. Garima Pulliam AST [Catalytic activity/Vol] 23 U/L Normal 15-37 [facility] Comment on above: Performed By: #### C MP ####[facility] Urwyarbkdm[address] [place], [place] [address]Dr. Garima Pulliam Bilirubin [Mass/Vol] 0.5 mg/dL Normal 0.2-1.0 [facility] Comment on above: Performed By: #### C MP ####[facility] Nejfnqdnbk[address] [place], [place] [address]Dr. Garima Pulliam Calcium [Mass/Vol] 9.2 mg/dL Normal 8.5-10.[address] [facility] Comment on above: Performed By: #### C MP ####[facility] Duvbxwmwoa993[address] [place], [place] [address]Dr. Garima Pulliam Chloride [Moles/Vol] 103 mmol/L Normal 98-107 [facility] Comment on above: Performed By: #### C MP ####[facility] Tugfttijws5623 [place] [address]Dr. Garima Pulliam CO2 [Moles/Vol] 28.5 mmol/L Normal 21.0-32.0 The [facility] Comment on above: Performed By: #### C MP ####[facility] Hfbrqmmzxy[address] [place], [place] [address]Dr. Garima Pulliam Creatinine [Mass/Vol] 0.74 mg/dL Normal 0.70-1.30 [facility] Comment on above: Performed By: #### C MP ####[facility] Pouocgoucx5251 [place] [id number]. Garima Pulliam EGFR-AF SOMALI >60 Normal >=60 The [facility] Comment on above: Performed By: #### C MP ####[facility] Kmmpwsqmyg2194 [place] [address]Dr. Garima Heraclio EGFR-NON AF SOMALI >60 Normal >=60 [facility] Comment on above: Performed By: #### C MP ####[facility] Lmxtdpwvlv2185 [place] [id number]. Garima Heraclio Globulin (S) [Mass/Vol] 3.1 g/dL Normal [facility] Comment on above: Performed By: #### C MP ####[facility] Dzapxjkcix22[address] [place], [place] [address]Dr. Garima Heraclio Glucose [Mass/Vol] 93 mg/dL Normal 74-106 [facility] Comment on above: Performed By: #### C MP ####[facility] Jucufvtdro07[address] [place], [place] [address]Dr. Garima Heraclio Potassium [Moles/Vol] 3.7 mmol/L Normal 3.5-5.1 [facility] Comment on above: Performed By: #### C MP ####[facility] Isbwzilqab[address] [place], [place] [address]Dr. Garima Heraclio Protein [Mass/Vol] 6.9 g/dL Normal 6.4-8.2 [facility] Comment on above: Performed By: #### C MP ####[facility] Qgeuhrifuz09[address] [place], [place] [address]Dr. Garima Heraclio Sodium [Moles/Vol] 140 mmol/L Normal 136-145 [facility] Comment on above: Performed By: #### C MP ####[facility] Bhpcrnmjwu12[address] [place], [place] [address]Dr. Garima Pulliam Urea nitrogen [Mass/Vol] 8.0 mg/dL Normal 7.0-18.0 [facility] Comment on above: Performed By: #### C MP ####[facility] Idmwnbvfmq[address] [place], [place] [address]Dr. Garima Pulliam Urea nitrogen/Creatinine [Mass ratio] 10.8 mg/mg Normal [facility] Comment on above: Performed By: #### C DAVID ####[facility] Spuhdccchj1492 [place] [address]Dr. Garima Pulliam AMMONIAon 03-30-2023 Ammonia (P) [Moles/Vol] 11 umol/L Normal 11-32 [facility] Comment on above: Performed By: #### A MM ####[facility] Bgxlxjtpef114[address] [place], [place] [address]Dr. Garima Pulliam CARDIAC NASH ADMITon 023 CK [Catalytic activity/Vol] 232 U/L Normal 39-308 [facility] Comment on above: Performed By: #### C NANCY HERNANDEZ ####[facility] Xbqjwyemhn6113 [place] [address]Dr. Chapisrenu Pulliam CK.MB [Mass/Vol] 4.83 ng/mL Critically high <=3.60 [facility] Comment on above: Performed By: #### C NANCY HERNANDEZ ####[facility] Yefaeviyaz34[address] [place], [place] [address]Dr. Garima Pulliam HSTROP 10.5 pg/mL Normal 4.0-76.1 [facility] Comment on above: Result Comment: CUT- OFF POINTS HAVE BEEN ESTABLISHED BASED ON THE FOURTH UNIVERSAL DEFINITIONS OF MYOCARDIALINFARCTION. THE UPPER REFERENCE LIMIT (URL) OF TROPONIN, DEFINED THE 99TH PERCENTILE OFcTnI DISTRIBUTION IN A REFERENCE POPULATION, HAS BEEN CONFIRMED THE DECISION THRESHOLDFOR [place] DIAGNOSIS. Performed By: #### C NANCY HERNANDEZ ####[facility] Xdyrmurvoi[address] [place], [place] [address]Dr. Garima Heraclio DORIS 79 ng/mL Normal 16-96 [facility] Comment on above: Performed By: #### C NANCY HERNANDEZ ####[facility] Qrvhmqfgvg[address] [place], [place] [address]Dr. Garima Heraclio CBC AUTO DIFFon 03-30-2023 BASO # 0.0 103/ul Normal 0.0-0.1 [facility] Comment on above: Performed By: #### C BC ####[facility] Xnyzpfsubk0583 [place] [id number]. Garima Pulliam Basophils/100 WBC (Bld) 0.1 % Critically low 0.2-2.0 [facility] Comment on above: Performed By: #### C BC ####[facility] Wvypnpwtcf9872 [place] [phone]. Garima Pulliam EO # 0.3 103/ul Normal 0.0-0.7 [facility] Comment on above: Performed By: #### C BC ####[facility] Bjolvhkhgl[address] [place], [place] [address]Dr. Garima Pulliam Eosinophils/100 WBC (Bld) 3.3 % Normal 0.9-7.0 [facility] Comment on above: Performed By: #### C BC ####[facility] Zpzlvgpypt[address] [place], [place] [address]Dr. Garima Pulliam Erythrocyte distribution width (RBC) [Ratio] 13.5 % Normal 11.0-15.0 [facility] Comment on above: Performed By: #### C BC ####[facility] Gwcarmprky[address] [place], [place] [address]Dr. Garima Pulliam Hematocrit (Bld) [Volume fraction] 42.9 % Normal 42.0-54.0 [facility] Comment on above: Performed By: #### C BC ####[facility] S[address]byoafndg[address] [place], [place] [address]Dr. Garima Pulliam Hemoglobin (Bld) [Mass/Vol] 13.9 g/dL Critically low 14.0-18.0 [facility] Comment on above: Performed By: #### C BC ####[facility] Lwgbdlthst7321 [place] [phone]. Garima Pulliam IG # 0.01 10e3/ul Normal 0.00-0.03 [facility] Comment on above: Performed By: #### C BC ####[facility] Rnlzopwqsz[address] [place], [place] [address]Dr. Garima Pulliam IG % 0.1 % Normal 0.0-0.5 [facility] Comment on above: Performed By: #### C BC ####[facility] Rufasttrxt0193 [place] [phone]. Garima Pulliam LYMPH # 1.7 103/ul Normal 1.2-3.8 [facility] Comment on above: Performed By: #### C BC ####[facility] Trtuagwbsz8421 [place], [place] [address]Pm. Garima Pulliam Lymphocytes/100 WBC (Bld) 22.8 % Normal 20.5-60.0 [facility] Comment on above: Performed By: #### C BC ####[facility] Eawfvvvwpn9417 [place] [phone]. Garima Heraclio MANUAL DIFF REQ NO Normal [facility] Comment on above: Performed By: #### C BC ####[facility] Hadbklvriy6712 [place] [phone]. Garima Heraclio MCH (RBC) [Entitic mass] 30.5 pg Normal 25.9-34.0 [facility] Comment on above: Performed By: #### C BC ####[facility] Landmkuuvh3638 [place] [phone]. Garima Pulliam MCHC (RBC) [Mass/Vol] 32.4 g/dL Normal 29.9-35.2 [facility] Comment on above: Performed By: #### C BC ####[facility] Fvhzgqssod6651 [place] [phone]. Garima Heraclio MCV (RBC) [Entitic vol] 94.1 fL Critically high 80.0-94.0 [facility] Comment on above: Performed By: #### C BC ####[facility] Aynzldziiz5150 [place] [phone]. Garima Heraclio MONO # 0.7 103/ul Normal 0.3-0.8 [facility] Comment on above: Performed By: #### C BC ####[facility] Rvzioucijp1491 [place] [phone]. Garima Heraclio Monocytes/100 WBC (Bld) 8.6 % Normal 1.7-12.0 [facility] Comment on above: Performed By: #### C BC ####[facility] Boayvrajvm8325 [place] [phone]. Garima Pulliam NEUT # 4.9 103/ul Normal 1.4-6.5 [facility] Comment on above: Performed By: #### C BC ####[facility] Yxdqwoeefv7960 [place] [phone]. Garima Pulliam Neutrophils/100 WBC (Bld) 65.1 % Normal 43.0-75.0 [facility] Comment on above: Performed By: #### C BC ####[facility] Zvwblmjvhs7009 [place] [phone]. Garima Pulliam Platelet mean volume (Bld) [Entitic vol] 8.5 fL Critically low 9.5-13.5 [facility] Comment on above: Performed By: #### C BC ####[facility] Isrjxfwoxa6300 [place] [phone]. Garima Pulliam PLT 219 103/ul Normal 150-450 [facility] Comment on above: Performed By: #### C BC ####[facility] Rfebnlkhkz0743 [place] [phone]. Garima Pulliam RBC 4.56 106/ul Critically low 4.70-6.10 [facility] Comment on above: Performed By: #### C BC ####[facility] Icbcixoroa0544 [place] [phone]. Garima Pulliam WBC 7.6 103/ul Normal 4.0-11.0 [facility] Comment on above: Performed By: #### C BC ####[facility] Yjsruqkrov8683 [place] [phone]. Garima Pulliam LACTATE/LACTIC ACIDon 2022 Lactate [Moles/Vol] 1.2 mmol/L Normal 0.4-2.0 [facility] Comment on above: Performed By: #### L ACT ####[facility] Xzlahcrtvi0667 [place] [phone]. Garima Pulliam MAGNESIUMon 03-30-2023 Magnesium [Mass/Vol] 1.8 mg/dL Normal 1.8-2.4 [facility] Comment on above: Performed By: #### M G ####[facility] Fflcyqlkwy[address] [place] [address]Dr. Garima Pulliam PROF 14(COMP METB)on 023 Albumin [Mass/Vol] 3.5 g/dL Normal 3.4-5.[address] [facility] Comment on above: Performed By: #### C DAVID, CMAANA ROSA ####[facility] Bjevooafco8860 [place] [address]Dr. Garima Pulliam Albumin/Globulin [Mass ratio] 1.2 {ratio} Normal [facility] Comment on above: Performed By: #### C DAVID, CMAANA ROSA ####[facility] Nmzosfykaf7183 [place] [address]Dr. Garima Pulliam ALP [Catalytic activity/Vol] 85 U/L Normal 46-116 [facility] Comment on above: Performed By: #### C DAVID, CMAANA ROSA ####[facility] Byasnufkie[address] [place], [place] [address]Dr. Garima Pulliam ALT [Catalytic activity/Vol] 29 U/L Normal 16-63 [facility] Comment on above: Performed By: #### C DAVID, CMAANA ROSA ####[facility] Wpynncpkas5878 [place] [address]Dr. Garima Pulliam Anion gap [Moles/Vol] 8.0 mmol/L Normal [facility] Comment on above: Performed By: #### C DAVID, CMAANA ROSA ####[facility] Zscvrecjjm4368 [place] [address]Dr. Garima Pulliam AST [Catalytic activity/Vol] 18 U/L Normal 15-37 [facility] Comment on above: Performed By: #### C DAVID, CMADM ####[facility] Cssceihmhq2790 [place] [address]Dr. Garima Pulliam Bilirubin [Mass/Vol] 0.4 mg/dL Normal 0.2-1.0 [facility] Comment on above: Performed By: #### C DAVID, CMADM ####[facility] Eupagyyazm7110 [place] [address]Dr. Garima Pulliam Calcium [Mass/Vol] 8.8 mg/dL Normal 8.5-10.[address] [facility] Comment on above: Performed By: #### C DAVID, NANCY ####[facility] Buzmlxurvq5861 [place] [address]Dr. Chapisrenu Pulliam Chloride [Moles/Vol] 108 mmol/L Critically high 98-107 [facility] Comment on above: Performed By: #### C DAVID, NANCY ####[facility] Tzmdenvzts7840 [place] [address]Dr. Garima Pulliam CO2 [Moles/Vol] 29.6 mmol/L Normal 21.0-32.0 [facility] Comment on above: Performed By: #### C NANCY HERNANDEZ ####[facility] Vyzcrzscij[address] [place], [place] [address]Dr. Garima Pulliam Creatinine [Mass/Vol] 0.77 mg/dL Normal 0.70-1.30 [facility] Comment on above: Performed By: #### C NANCY HERNANDEZ ####[facility] Gntvdicnqp[address] [place], [place] [address]Dr. Garima Heraclio EGFR-AF SOMALI >60 Normal >=60 [facility] Comment on above: Performed By: #### C NANCY HERNANDEZ ####[facility] Ucjjmmwfkg[address] [place], [place] [address]Dr. Garima Heraclio EGFR-NON AF SOMALI >60 Normal >=60 [facility] Comment on above: Performed By: #### C NANCY HERNANDEZ ####[facility] Mtajgjfiki4905 [place] [address]Dr. Garima Pulliam Globulin (S) [Mass/Vol] 2.8 g/dL Normal [facility] Comment on above: Performed By: #### C NANCY HERNANDEZ ####[facility] Naohchgtbs5976 [place] [address]Dr. Garima Pulliam Glucose [Mass/Vol] 207 mg/dL Critically high 74-106 [facility] Comment on above: Performed By: #### C NANCY HERNANDEZ ####[facility] Pffrfbgstj[address] [place], [place] [address]Dr. Garima Pulliam Potassium [Moles/Vol] 4.6 mmol/L Normal 3.5-5.1 [facility] Comment on above: Performed By: #### C DAVID, NANCY ####[facility] Kfjzcdokkv9114 [place] [address]Dr. Garima Pulliam Protein [Mass/Vol] 6.3 g/dL Critically low 6.4-8.2 [facility] Comment on above: Performed By: #### C DAVID, NANCY ####[facility] Pqgilrhgwe4729 [place] [address]Dr. Garima Pulliam Sodium [Moles/Vol] 141 mmol/L Normal 136-[address] [facility] Comment on above: Performed By: #### C DAVID, NANCY ####[facility] Rgwjcnxbvs0146 [place] [address]Dr. Garima Pulliam Urea nitrogen [Mass/Vol] 9.0 mg/dL Normal 7.0-18.0 [facility] Comment on above: Performed By: #### C DAVID, NANCY ####[facility] Yndyeecwpy7991 [place] [address]Dr. Garima Pulliam Urea nitrogen/Creatinine [Mass ratio] 11.7 mg/mg Normal [facility] Comment on above: Performed By: #### C DAVID, NANCY ####[facility] Eqvjzdbuum6476 [place] [address]Dr. Garima Pulliam XR CHEST 1 Von 03-30-2023 XR CHEST 1 V Normal [facility] BNPon 03-27-2023 Natriuretic peptide B (Bld) [Mass/Vol] 251.0 pg/mL Normal <=900.0 [facility] Comment on above: Performed By: #### C MP, BNP, LIPID ####[facility] Pjhipqxbbw2805 [place] [address]Dr. Garima Pulliam GLYCOHEMOGLOBIN A1Con 2022 ADA RECOMMENDATION SEE BELOW Normal [facility] Comment on above: Result Comment: ADA RECOMMENDED LIMIT 4.0 - 6.0 ADA THERAPEUTIC TARGET < 7.0 ACTION SUGGESTED > 7.0 Performed By: #### A 1C ####[facility] Fsdzfsxjow4407 [place] [address]Dr. Garima Pulliam Glucose [Mass/Vol] 180 mg/dL Normal [facility] Comment on above: Performed By: #### A 1C ####[facility] Mcpobvwvvk[address] [place], [place] [address]Dr. Chapisrenu Pulliam HbA1c (Bld) [Mass fraction] 7.9 % Critically high 4.5-6.2 [facility] Comment on above: Performed By: #### A 1C ####[facility] Yjsoygqpnl[address] [place], [place] [address]Dr. Garima Pulliam HEMOGRAM AND PLATELon 2022 Hematocrit (Bld) [Volume fraction] 45.7 % Normal 42.0-54.0 [facility] Comment on above: Performed By: #### H H ####[facility] Epwhfzpyib[address] [place], [place] [address]Dr. Garima Pulliam Hemoglobin (Bld) [Mass/Vol] 15.1 g/dL Normal 14.0-18.0 [facility] Comment on above: Performed By: #### H H ####[facility] Tpysmzldoh[address] [place], [place] [address]Dr. Garima Pulliam MCH (RBC) [Entitic mass] 30.0 pg Normal 25.9-34.0 [facility] Comment on above: Performed By: #### H H ####[facility] Vprrjqppvo[address] [place], [place] [address]Dr. Garima Pulliam MCHC (RBC) [Mass/Vol] 33.0 g/dL Normal 29.9-35.2 [facility] Comment on above: Performed By: #### H H ####[facility] Kffwktnlft[address] [place], [place] [address]Dr. Garima Pulliam MCV (RBC) [Entitic vol] 90.7 fL Normal 80.0-94.0 [facility] Comment on above: Performed By: #### H H ####[facility] [address]adoqwtbbz[address] [place], [place] [address]Dr. Garima Pulliam PLT 222 103/ul Normal 150-450 [facility] Comment on above: Performed By: #### H H ####[facility] Mdrpopmrjs4793 [place] [id number]. Garima Pulliam RBC 5.04 106/ul Normal 4.70-6.10 [facility] Comment on above: Performed By: #### H H ####[facility] Vpnwdggust5312 [place] [phone]. Garima Pulliam WBC 8.7 103/ul Normal 4.0-11.0 [facility] Comment on above: Performed By: #### H H ####[facility] Tqqzugqpnm3668 [place] [phone]. Garima Pulliam LIPID PROFILEon 03-27-2023 CHOL-HDL RATIO NORM SEE BELOW Normal [facility] Comment on above: Result Comment: 3.3 - 4.4 LOW RISK 4.4 - 7.1 AVERAGE RISK 7.1 - 11.0 MODERATE RISK >11.0 HIGH RISK Performed By: #### C MP, BNP, LIPID ####[facility] Uqppoiosbk1277 [place] [address]Dr. Garima Pulliam Cholesterol [Mass/Vol] 113 mg/dL Normal <=200 [facility] Comment on above: Performed By: #### C MP, BNP, LIPID ####[facility] Sspdaqksia5228 [place] [address]Dr. Garima Pulliam Cholesterol in HDL [Mass/Vol] 51 mg/dL Normal 40-60 [facility] Comment on above: Performed By: #### C MP, BNP, LIPID ####[facility] Kkdbrdrrbf8427 [place] [address]Dr. Garima Pulliam Cholesterol in LDL [Mass/Vol] 49.8 mg/dL Normal [facility] Comment on above: Performed By: #### C MP, BNP, LIPID ####[facility] Jakcprivpa6046 [place] [address]Dr. Garima Pulliam Cholesterol.total/Cho lesterol in HDL [Mass ratio] 2.2 {ratio} Normal [facility] Comment on above: Performed By: #### C MP, BNP, LIPID ####[facility] Yxlhzzbgui6506 [place] [address]Dr. Garima Pulliam HDL NORMAL > or = 60 mg/dl - LOW CARDIOVASCULAR RISK <40 mg/dl - HIGH CARDIOVASCULAR RISK Normal [facility] Comment on above: Performed By: #### C MP, BNP, LIPID ####[facility] Xnwkyindne3419 [place] [address]Dr. Garima Pulliam LDL CALC NORMAL SEE BELOW Normal [facility] Comment on above: Result Comment: <100 mg/dl OPTIMAL 100 - 129 mg/dl NEAR OR ABOVE OPTIMAL 130 - 159 mg/dl BORDERLINE HIGH 160 - 189 mg/dl HIGH >190 mg/dl VERY HIGH Performed By: #### C MP, BNP, LIPID ####[facility] Nwnnhlqqoa65[address] [place] [address]Dr. Garima Pulliam Triglyceride [Mass/Vol] 61 mg/dL Normal <=150 [facility] Comment on above: Performed By: #### C MP, BNP, LIPID ####[facility] Tvrlwmaifr[address] [place] [address]Dr. Garima Pulliam VLDL CALC 12.2 mg/dL Normal [facility] Comment on above: Performed By: #### C MP, BNP, LIPID ####[facility] Pajnhpysns[address] [place] [address]Dr. Garima Pulliam PROF 14(COMP METB)on 023 Albumin [Mass/Vol] 3.5 g/dL Normal 3.4-5.[address] [facility] Comment on above: Performed By: #### C MP, BNP, LIPID ####[facility] Igvswffkqm2537 [place] [address]Dr. Garima Pulliam Albumin/Globulin [Mass ratio] 1.2 {ratio} Normal [facility] Comment on above: Performed By: #### C MP, BNP, LIPID ####[facility] Unhssfwxtm38[address] [place] [address]Dr. Garima Pulliam ALP [Catalytic activity/Vol] 82 U/L Normal 46-116 [facility] Comment on above: Performed By: #### C MP, BNP, LIPID ####[facility] Pjojbjczpk032[address] [place] [address]Dr. Garima Pulliam ALT [Catalytic activity/Vol] 33 U/L Normal 16-63 [facility] Comment on above: Performed By: #### C MP, BNP, LIPID ####[facility] Kjqotjzxju7100 [place] [address]Dr. Garima Pulliam Anion gap [Moles/Vol] 9.9 mmol/L Normal [facility] Comment on above: Performed By: #### C MP, BNP, LIPID ####[facility] Dwzprfnbrp9463 [place] [address]Dr. Garima Pulliam AST [Catalytic activity/Vol] 24 U/L Normal 15-37 [facility] Comment on above: Performed By: #### C MP, BNP, LIPID ####[facility] Qpwzpooxsa9364 [place] [address]Dr. Garima Pulliam Bilirubin [Mass/Vol] 0.6 mg/dL Normal 0.2-1.0 [facility] Comment on above: Performed By: #### C MP, BNP, LIPID ####[facility] Ybhxfclgqd5354 [place] [address]Dr. Garima Pulliam Calcium [Mass/Vol] 9.2 mg/dL Normal 8.5-10.[address] [facility] Comment on above: Performed By: #### C MP, BNP, LIPID ####[facility] Bxlqjqeqtr6721 [place] [address]Dr. Garima Pulliam Chloride [Moles/Vol] 106 mmol/L Normal 98-107 [facility] Comment on above: Performed By: #### C MP, BNP, LIPID ####[facility] Gxzodkxfqu0014 [place] [address]Dr. Garima Pulliam CO2 [Moles/Vol] 32.3 mmol/L Critically high 21.0-32.0 [facility] Comment on above: Performed By: #### C MP, BNP, LIPID ####[facility] Pyzklsgthi4274 [place] [address]Dr. Garima Pulliam Creatinine [Mass/Vol] 0.70 mg/dL Normal 0.70-1.30 [facility] Comment on above: Performed By: #### C MP, BNP, LIPID ####[facility] Kewliwjayy54[address] [place] [id number]. Garima Pulliam EGFR-AF SOMALI >60 Normal >=60 [facility] Comment on above: Performed By: #### C MP, BNP, LIPID ####[facility] Jrhfjboamq7791 [place] [id number]. Garima Pulliam EGFR-NON AF SOMALI >60 Normal >=60 [facility] Comment on above: Performed By: #### C MP, BNP, LIPID ####[facility] Cfddskxrqy2506 [place] [address]Dr. Garima Pulliam Globulin (S) [Mass/Vol] 2.9 g/dL Normal [facility] Comment on above: Performed By: #### C MP, BNP, LIPID ####[facility] Srsyazjdlz3498 [place] [address]Dr. Garima Pulliam Glucose [Mass/Vol] 111 mg/dL Critically high 74-106 [facility] Comment on above: Performed By: #### C MP, BNP, LIPID ####[facility] Zjyjsidbrp7291 [place] [address]Dr. Garima Pulliam Potassium [Moles/Vol] 4.2 mmol/L Normal 3.5-5.1 [facility] Comment on above: Performed By: #### C MP, BNP, LIPID ####[facility] Gubquczxro8668 [place] [address]Dr. Garima Pulliam Protein [Mass/Vol] 6.4 g/dL Normal 6.4-8.[address] [facility] Comment on above: Performed By: #### C MP, BNP, LIPID ####[facility] Mnbsojkqfg0785 [place] [address]Dr. Garima Pulliam Sodium [Moles/Vol] 144 mmol/L Normal 136-[address] [facility] Comment on above: Performed By: #### C MP, BNP, LIPID ####[facility] Vxnqyxamnk6163 [place] [address]Dr. Garima Pulliam Urea nitrogen [Mass/Vol] 7.0 mg/dL Normal 7.0-18.0 [facility] Comment on above: Performed By: #### C MP, BNP, LIPID ####[facility] Litnjgtjnw26[address] [place], [place] [address]Dr. Garima Pulliam Urea nitrogen/Creatinine [Mass ratio] 10.0 mg/mg Normal [facility] Comment on above: Performed By: #### C MP, BNP, LIPID ####[facility] Ciopxftcnk[address] [place], [place] [address]Dr. Garima Pulliam BNPon 03-22-2023 Natriuretic peptide B (Bld) [Mass/Vol] 103.0 pg/mL Normal <=900.0 [facility] Comment on above: Performed By: #### B AIR CONTROL ELECTRONICS OPERATOR, BMP ####[facility] Umefiqwwxx[address] [place], [place] [address]Dr. Garima Pulliam CBC AUTO DIFFon 03-22-2023 BASO # 0.0 103/ul Normal 0.0-0.1 [facility] Comment on above: Performed By: #### C BC ####[facility] Bdrfgmvsol[address] [place], [place] [address]Dr. Garima Heraclio Basophils/100 WBC (Bld) 0.3 % Normal 0.2-2.0 [facility] Comment on above: Performed By: #### C BC ####[facility] Pbmcecocvj[address] [place], [place] [address]Dr. Garima Pulliam EO # 0.2 103/ul Normal 0.0-0.7 [facility] Comment on above: Performed By: #### C BC ####[facility] Ftrzstrsyb7[address] [place], [place] [address]Dr. Garima Pulliam Eosinophils/100 WBC (Bld) 2.2 % Normal 0.9-7.0 [facility] Comment on above: Performed By: #### C BC ####[facility] Lvzpzwvxnh439[address] [place], [place] [address]Dr. Garima Pulliam Erythrocyte distribution width (RBC) [Ratio] 13.2 % Normal 11.0-15.0 [facility] Comment on above: Performed By: #### C BC ####[facility] Tdyamzqmya0715 [place] [id number]. Garima Pulliam Hematocrit (Bld) [Volume fraction] 43.4 % Normal 42.0-54.0 [facility] Comment on above: Performed By: #### C BC ####[facility] Bjxaaafksn5995 [place] [address]Dr. Garima Heraclio Hemoglobin (Bld) [Mass/Vol] 14.3 g/dL Normal 14.0-18.0 [facility] Comment on above: Performed By: #### C BC ####[facility] Kpewsktuwm5335 [place] [address]Dr. Garima Pulliam IG # 0.02 10e3/ul Normal 0.00-0.03 [facility] Comment on above: Performed By: #### C BC ####[facility] Ngaosvalhe4257 [place] [address]Dr. Garima Pulliam IG % 0.3 % Normal 0.0-0.5 [facility] Comment on above: Performed By: #### C BC ####[facility] Lnmqggmlan8218 [place] [address]Dr. Chapisrenu Pulliam LYMPH # 2.0 103/ul Normal 1.2-3.8 [facility] Comment on above: Performed By: #### C BC ####[facility] Tityshgrte3558 [place] [address]Dr. Chapisrenu Pulliam Lymphocytes/100 WBC (Bld) 24.8 % Normal 20.5-60.0 [facility] Comment on above: Performed By: #### C BC ####[facility] Inlqmekfva3580 [place] [address]Dr. Chapisrenu Pulliam MANUAL DIFF REQ NO Normal [facility] Comment on above: Performed By: #### C BC ####[facility] Nepaclmvkg8866 [place] [address]Dr. Garima Heraclio MCH (RBC) [Entitic mass] 30.0 pg Normal 25.9-34.0 [facility] Comment on above: Performed By: #### C BC ####[facility] Hvvtshfxow[address] [place], [place] [address]Dr. Garima Pulliam MCHC (RBC) [Mass/Vol] 32.9 g/dL Normal 29.9-35.2 [facility] Comment on above: Performed By: #### C BC ####[facility] Ojltjbgkru2989 [place] [id number]. Garima Pulliam MCV (RBC) [Entitic vol] 91.0 fL Normal 80.0-94.0 [facility] Comment on above: Performed By: #### C BC ####[facility] Zmepkrxkdu3020 [place] [id number]. Garima Heraclio MONO # 0.8 103/ul Normal 0.3-0.8 [facility] Comment on above: Performed By: #### C BC ####[facility] Klkxhzrjfx1079 [place] [address]Dr. Chapisrenu Pulliam Monocytes/100 WBC (Bld) 9.7 % Normal 1.7-12.0 [facility] Comment on above: Performed By: #### C BC ####[facility] Duifdxmxje2987 [place] [address]Dr. Garima Pulilam NEUT # 4.9 103/ul Normal 1.4-6.5 [facility] Comment on above: Performed By: #### C BC ####[facility] Ilgczokxys9123 [place] [id number]. Garima Heraclio Neutrophils/100 WBC (Bld) 62.7 % Normal 43.0-75.0 [facility] Comment on above: Performed By: #### C BC ####[facility] Qwmsgbewnn5297 [place] [phone]. Garima Heraclio Platelet mean volume (Bld) [Entitic vol] 8.8 fL Critically low 9.5-13.5 [facility] Comment on above: Performed By: #### C BC ####[facility] Bxdkkbllty7629 [place] [id number]. Garima Heraclio PLT 198 103/ul Normal 150-450 [facility] Comment on above: Performed By: #### C BC ####[facility] Gtneajmibr1772 [place] [phone]. Garima Heraclio RBC 4.77 106/ul Normal 4.70-6.10 [facility] Comment on above: Performed By: #### C BC ####[facility] Vzrjkdjhsx2765 [place] [phone]. Garima Heraclio WBC 7.9 103/ul Normal 4.0-11.0 [facility] Comment on above: Performed By: #### C BC ####[facility] Ddyhpksjhk7690 [place] [id number]. Garima Heraclio D-DIMERon 03-22-2023 D-DIMER 0.85 mg/L FEU Critically high <=0.59 [facility] Comment on above: Performed By: #### D DIM ####[facility] Hhjdrauwoj0213 [place] [address]Dr. Garima Pulliam D-DIMER COMMENTS SEE BELOW Normal [facility] Comment on above: Result Comment: [...] generalized hospitalization. Performed By: #### D DIM ####[facility] Abjplcjxfn[address] [place], [place] [address]Dr. Garima Pulliam PROF CHEM 8 (BAS METB)on Anion gap [Moles/Vol] 6.9 mmol/L Normal [facility] Comment on above: Performed By: #### B AIR CONTROL ELECTRONICS OPERATOR, BMP ####[facility] Ewfjbzlwfz4991 [place] [address]Dr. Garima Pulliam Calcium [Mass/Vol] 8.9 mg/dL Normal 8.5-10.1 [facility] Comment on above: Performed By: #### B AIR CONTROL ELECTRONICS OPERATOR, BMP ####[facility] Qljebuzdyf7038 [place] [address]Dr. Garima Pulliam Chloride [Moles/Vol] 101 mmol/L Normal 98-107 [facility] Comment on above: Performed By: #### B AIR CONTROL ELECTRONICS OPERATOR, BMP ####[facility] Prndgbboas754[address] [place], [place] [address]Dr. Chapisrenu Heraclio CO2 [Moles/Vol] 30.7 mmol/L Normal 21.0-32.0 [facility] Comment on above: Performed By: #### B AIR CONTROL ELECTRONICS OPERATOR, BMP ####[facility] Vcgbjxvzep2[address] [place], [place] [address]Dr. Garima Pulliam Creatinine [Mass/Vol] 0.82 mg/dL Normal 0.70-1.30 [facility] Comment on above: Performed By: #### B AIR CONTROL ELECTRONICS OPERATOR, BMP ####[facility] Bdohvjgkpa962[address] [place], [place] [address]Dr. Garima Pulliam EGFR-AF SOMALI >60 Normal >=60 [facility] Comment on above: Performed By: #### B AIR CONTROL ELECTRONICS OPERATOR, BMP ####[facility] Tdikvghdcf75[address] [place], [place] [address]Dr. Chapisrenu Heraclio EGFR-NON AF SOMALI >60 Normal >=60 [facility] Comment on above: Performed By: #### B AIR CONTROL ELECTRONICS OPERATOR, BMP ####[facility] Ronftfhpqs1048[address] [place], [place] [address]Dr. Garima Pulliam Glucose [Mass/Vol] 339 mg/dL Critically high 74-106 [facility] Comment on above: Performed By: #### B AIR CONTROL ELECTRONICS OPERATOR, BMP ####[facility] Fcoczsudql22[address] [place], [place] [address]Dr. Garima Pulliam Potassium [Moles/Vol] 3.6 mmol/L Normal 3.5-5.1 [facility] Comment on above: Performed By: #### B AIR CONTROL ELECTRONICS OPERATOR, BMP ####[facility] Qcdzkoaynr034[address] [place], [place] [address]Dr. Garima Pulliam Sodium [Moles/Vol] 135 mmol/L Critically low 136-145 [facility] Comment on above: Performed By: #### B AIR CONTROL ELECTRONICS OPERATOR, BMP ####[facility] Qzrrxjeuwo554[address] [place], [place] [address]Dr. Garima Pulliam Urea nitrogen [Mass/Vol] 11.0 mg/dL Normal 7.0-18.0 [facility] Comment on above: Performed By: #### B AIR CONTROL ELECTRONICS OPERATOR, BMP ####[facility] Zatmdnilkj9[address] [place], [place] [address]Dr. Garima Pulliam Urea nitrogen/Creatinine [Mass ratio] 13.4 mg/mg Normal [facility] Comment on above: Performed By: #### B AIR CONTROL ELECTRONICS OPERATOR, BMP ####[facility] Terkgrmecu9[address] [place], [place] [address]Dr. Garima Pulliam US VERONICA DOP LEG BILon 023 US VERONICA DOP LEG BENOIT Normal [facility] BNPon 03-18-2023 Natriuretic peptide B (Bld) [Mass/Vol] 226.0 pg/mL Normal <=900.0 [facility] Comment on above: Performed By: #### B AIR CONTROL ELECTRONICS OPERATOR, BMP ####[facility] Hpgpzuuaga6[address] [place], [place] [address]Dr. Garima Pulliam CBC AUTO DIFFon 03-18-2023 BASO # 0.0 103/ul Normal 0.0-0.1 [facility] Comment on above: Performed By: #### C BC ####[facility] Tdepdufdcz12[address] [place], [place] [address]Dr. Garima Heraclio Basophils/100 WBC (Bld) 0.2 % Normal 0.2-2.0 [facility] Comment on above: Performed By: #### C BC ####[facility] Euxpbxemgf4964[address] [place], [place] [address]Dr. Garima Pulliam EO # 0.3 103/ul Normal 0.0-0.7 [facility] Comment on above: Performed By: #### C BC ####[facility] Uhpcwovojd8527[address] [place], [place] [address]Dr. Garima Heraclio Eosinophils/100 WBC (Bld) 2.5 % Normal 0.9-7.0 [facility] Comment on above: Performed By: #### C BC ####[facility] Kmmqlbizvb0310[address] [place], [place] [address]Dr. Garima Heraclio Erythrocyte distribution width (RBC) [Ratio] 13.2 % Normal 11.0-15.0 [facility] Comment on above: Performed By: #### C BC ####[facility] Dxzjkzojig2994 [place] [address]DrAdalberto Pulliam Hematocrit (Bld) [Volume fraction] 45.8 % Normal 42.0-54.0 [facility] Comment on above: Performed By: #### C BC ####[facility] Nljitahifw7855 [place] [address]DrAdalberto Pulliam Hemoglobin (Bld) [Mass/Vol] 15.3 g/dL Normal 14.0-18.0 [facility] Comment on above: Performed By: #### C BC ####[facility] Vobjzpicrc87[address] [place], [place] [address]DrAdalberto Pulliam IG # 0.02 10e3/ul Normal 0.00-0.03 [facility] Comment on above: Performed By: #### C BC ####[facility] Zybfxxhoyy69[address] [place], [place] [address]DrAdalberto Pulliam IG % 0.2 % Normal 0.0-0.5 [facility] Comment on above: Performed By: #### C BC ####[facility] Ntryxfjays3935[address] [place], [place] [address]DrAdalberto Pulliam LYMPH # 1.8 103/ul Normal 1.2-3.8 [facility] Comment on above: Performed By: #### C BC ####[facility] Jciwvyidee869[address] [place], [place] [address]DrAdalberto Pulliam Lymphocytes/100 WBC (Bld) 18.3 % Critically low 20.5-60.0 [facility] Comment on above: Performed By: #### C BC ####[facility] Qbvdwreksz192[address] [place], [place] [address]DrAdalberto Pulliam MANUAL DIFF REQ NO Normal [facility] Comment on above: Performed By: #### C BC ####[facility] Qdjpowgcqp0717 [place] [address]DrAdalberto Pulliam MCH (RBC) [Entitic mass] 30.5 pg Normal 25.9-34.0 [facility] Comment on above: Performed By: #### C BC ####[facility] Hhkjuzwpjz1470 [place] [address]DrAdablerto Pulliam MCHC (RBC) [Mass/Vol] 33.4 g/dL Normal 29.9-35.2 [facility] Comment on above: Performed By: #### C BC ####[facility] Djxsnevwix5564 [place] [address]DrAdalberto Pulliam MCV (RBC) [Entitic vol] 91.2 fL Normal 80.0-94.0 [facility] Comment on above: Performed By: #### C BC ####[facility] Sbenlwuqjj[address] [place], [place] [address]DrAdalberto Pulliam MONO # 0.8 103/ul Normal 0.3-0.8 [facility] Comment on above: Performed By: #### C BC ####[facility] Cugelvosuz8[address] [place], [place] [address]DrAdalberto Pulliam Monocytes/100 WBC (Bld) 7.6 % Normal 1.7-12.0 [facility] Comment on above: Performed By: #### C BC ####[facility] Lwpzkpiqfm22[address] [place], [place] [address]DrAdalberto Pulliam NEUT # 7.0 103/ul Critically high 1.4-6.5 [facility] Comment on above: Performed By: #### C BC ####[facility] Rjpyhaltra[address] [place], [place] [address]DrAdalberto Pulliam Neutrophils/100 WBC (Bld) 71.2 % Normal 43.0-75.0 [facility] Comment on above: Performed By: #### C BC ####[facility] Stipgtpwjd24[address] [place], [place] [address]DrAdalberto Pulliam Platelet mean volume (Bld) [Entitic vol] 8.9 fL Critically low 9.5-13.5 [facility] Comment on above: Performed By: #### C BC ####[facility] Kkvcuikfrc[address] [place], [place] [address]DrAdalberto Pulliam PLT 217 103/ul Normal 150-450 [facility] Comment on above: Performed By: #### C BC ####[facility] Hkiuuekptd9500 [place] [address]Dr. Garima Heraclio RBC 5.02 106/ul Normal 4.70-6.10 [facility] Comment on above: Performed By: #### C BC ####[facility] Uyaethmdra[address] [place], [place] [address]Dr. Garima Pulliam WBC 9.8 103/ul Normal 4.0-11.0 [facility] Comment on above: Performed By: #### C BC ####[facility] Swcusqiwdd[address] [place], [place] [address]Dr. Garima Heraclio CRPon 03-18-2023 CRP 0.1 mg/dL Normal <=1.0 [facility] Comment on above: Performed By: #### C RP ####[facility] Oqxmprgrei34[address] [place], [place] [address]Dr. Garima Heraclio PROF CHEM 8 (BAS METB)on Anion gap [Moles/Vol] 10.4 mmol/L Normal [facility] Comment on above: Performed By: #### B AIR CONTROL ELECTRONICS OPERATOR, BMP ####[facility] Tjuwtqksja58[address] [place], [place] [address]Dr. Garima Heraclio Calcium [Mass/Vol] 8.8 mg/dL Normal 8.5-10.[address] [facility] Comment on above: Performed By: #### B AIR CONTROL ELECTRONICS OPERATOR, BMP ####[facility] Kfqvsjjuhs7[address] [place], [place] [address]Dr. Garima Heraclio Chloride [Moles/Vol] 97 mmol/L Critically low 98-107 [facility] Comment on above: Performed By: #### B AIR CONTROL ELECTRONICS OPERATOR, BMP ####[facility] Wwqcivprvu17[address] [place], [place] [address]Dr. Garima Pulliam CO2 [Moles/Vol] 31.2 mmol/L Normal 21.0-32.0 [facility] Comment on above: Performed By: #### B AIR CONTROL ELECTRONICS OPERATOR, BMP ####[facility] Jzliswcjhd75[address] [place], [place] [address]Dr. Garima Pulliam Creatinine [Mass/Vol] 0.91 mg/dL Normal 0.70-1.30 [facility] Comment on above: Performed By: #### B AIR CONTROL ELECTRONICS OPERATOR, BMP ####[facility] Sbwqghhdot6312 [place] [address]Dr. Garima Pulliam EGFR-AF SOMALI >60 Normal >=60 [facility] Comment on above: Performed By: #### B AIR CONTROL ELECTRONICS OPERATOR, BMP ####[facility] Cxgwyeuhpl3928 [place] [id number]. Garima Pulliam EGFR-NON AF SOMALI >60 Normal >=60 [facility] Comment on above: Performed By: #### B AIR CONTROL ELECTRONICS OPERATOR, BMP ####[facility] Doktvjyxqy2770 [place] [address]Dr. Garima Pulliam Glucose [Mass/Vol] 315 mg/dL Critically high 74-106 [facility] Comment on above: Performed By: #### B AIR CONTROL ELECTRONICS OPERATOR, BMP ####[facility] Jgkizcknen2094 [place] [address]Dr. Garima Pulliam Potassium [Moles/Vol] 3.6 mmol/L Normal 3.5-5.1 [facility] Comment on above: Performed By: #### B AIR CONTROL ELECTRONICS OPERATOR, BMP ####[facility] Ufcgoywixs3963 [place] [address]Dr. Garima Pulliam Sodium [Moles/Vol] 135 mmol/L Critically low 136-145 [facility] Comment on above: Performed By: #### B AIR CONTROL ELECTRONICS OPERATOR, BMP ####[facility] Iyiewxxxnx4426 [place] [address]Dr. Garima Pulliam Urea nitrogen [Mass/Vol] 7.0 mg/dL Normal 7.0-18.0 [facility] Comment on above: Performed By: #### B AIR CONTROL ELECTRONICS OPERATOR, BMP ####[facility] Ivdfmwsvnk7383 [place] [address]Dr. Garima Pulliam Urea nitrogen/Creatinine [Mass ratio] 7.7 mg/mg Normal [facility] Comment on above: Performed By: #### B AIR CONTROL ELECTRONICS OPERATOR, BMP ####[facility] Nkjiouthwx7875 [place] [address]Dr. Garima Pulliam SED RATE WESTERGRENon 2022 SED RATE 8 mm/hr Normal <=20 [facility] Comment on above: Performed By: #### S EDR ####[facility] Hnjtfgpvzn[address] [place], [place] [address]Dr. Garima Pulliam BNPon 03-16-2023 Natriuretic peptide B (Bld) [Mass/Vol] 241.0 pg/mL Normal <=900.0 [facility] Comment on above: Performed By: #### B AIR CONTROL ELECTRONICS OPERATOR, BMP, HSTROPN ####[facility] Eqxkswxnrx[address] [place], [place] [address]Dr. Garima Heraclio CBC AUTO DIFFon 03-16-2023 BASO # 0.0 103/ul Normal 0.0-0.1 [facility] Comment on above: Performed By: #### C BC ####[facility] Ootgyrtpvq20[address] [place], [place] [address]Dr. Chapisrenu Pulliam Basophils/100 WBC (Bld) 0.2 % Normal 0.2-2.0 [facility] Comment on above: Performed By: #### C BC ####[facility] Cguztgcbox[address] [place], [place] [address]Dr. Garima Pulliam EO # 0.2 103/ul Normal 0.0-0.7 [facility] Comment on above: Performed By: #### C BC ####[facility] Jxvwsmxkjc4[address] [place], [place] [address]Dr. Chapisrenu Pulliam Eosinophils/100 WBC (Bld) 2.7 % Normal 0.9-7.0 [facility] Comment on above: Performed By: #### C BC ####[facility] Svknlfnvap[address] [place], [place] [address]Dr. Garima Pulliam Erythrocyte distribution width (RBC) [Ratio] 13.1 % Normal 11.0-15.0 [facility] Comment on above: Performed By: #### C BC ####[facility] Nicobylpho[address] [place], [place] [address]Dr. Gariam Pulliam Hematocrit (Bld) [Volume fraction] 41.8 % Critically low 42.0-54.0 [facility] Comment on above: Performed By: #### C BC ####[facility] Primvgjiau0782 [place] [address]Dr. Garima Pulliam Hemoglobin (Bld) [Mass/Vol] 14.0 g/dL Normal 14.0-18.0 [facility] Comment on above: Performed By: #### C BC ####[facility] Pakkbvqeee1387 [place] [address]Dr. Garima Pulliam IG # 0.03 10e3/ul Normal 0.00-0.03 [facility] Comment on above: Performed By: #### C BC ####[facility] Fnzzxslmsr7872 [place] [address]Dr. Garima Pulliam IG % 0.3 % Normal 0.0-0.5 [facility] Comment on above: Performed By: #### C BC ####[facility] [address]jcwcscvy[address] [place], [place] [address]Dr. Chapisrenu Pulliam LYMPH # 2.1 103/ul Normal 1.2-3.8 [facility] Comment on above: Performed By: #### C BC ####[facility] [address]tvdhrxtag[address] [place], [place] [address]Dr. Chapisrenu Pulliam Lymphocytes/100 WBC (Bld) 24.2 % Normal 20.5-60.0 [facility] Comment on above: Performed By: #### C BC ####[facility] Xegdhvhhtq0197 [place] [address]Dr. Garima Pulliam MANUAL DIFF REQ NO Normal [facility] Comment on above: Performed By: #### C BC ####[facility] Tggmuvgikg9202 [place] [address]Dr. Garima Pulliam MCH (RBC) [Entitic mass] 30.2 pg Normal 25.9-34.0 [facility] Comment on above: Performed By: #### C BC ####[facility] Lurzoxvtjj2096 [place] [address]Dr. Garima Pulliam MCHC (RBC) [Mass/Vol] 33.5 g/dL Normal 29.9-35.2 [facility] Comment on above: Performed By: #### C BC ####[facility] Tntmuzkkmc1436 [place] [id number]. Garima Pulliam MCV (RBC) [Entitic vol] 90.1 fL Normal 80.0-94.0 [facility] Comment on above: Performed By: #### C BC ####[facility] Tutkvhtdgm5570 [place] [id number]. Garima Pulliam MONO # 0.6 103/ul Normal 0.3-0.8 [facility] Comment on above: Performed By: #### C BC ####[facility] Cxlsgqcufi[address] [place] [address]Dr. Garima Heraclio Monocytes/100 WBC (Bld) 7.4 % Normal 1.7-12.0 [facility] Comment on above: Performed By: #### C BC ####[facility] Emwknyp[address] [place], [place] [address]Dr. Garima Pulliam NEUT # 5.6 103/ul Normal 1.4-6.5 [facility] Comment on above: Performed By: #### C BC ####[facility] Lmujcndwmx[address] [place], [place] [address]Dr. Garima Heraclio Neutrophils/100 WBC (Bld) 65.2 % Normal 43.0-75.0 [facility] Comment on above: Performed By: #### C BC ####[facility] Chxhryyive[address] [place] [id number]. Garima Heraclio Platelet mean volume (Bld) [Entitic vol] 8.7 fL Critically low 9.5-13.5 [facility] Comment on above: Performed By: #### C BC ####[facility] Rgesyipzz[address] [place], [place] [address]Dr. Garima Heraclio PLT 195 103/ul Normal 150-450 [facility] Comment on above: Performed By: #### C BC ####[facility] Qetbfjabqs9982 [place] [id number]. Garima Pulliam RBC 4.64 106/ul Critically low 4.70-6.10 [facility] Comment on above: Performed By: #### C BC ####[facility] Msjksdmvov[address] [place] [address]Dr. Garima Pulliam WBC 8.6 103/ul Normal 4.0-11.0 [facility] Comment on above: Performed By: #### C BC ####[facility] Iftbcbwcpd9375 [place] [address]Dr. Garima Pulliam PROF CHEM 8 (BAS METB)on Anion gap [Moles/Vol] 6.7 mmol/L Normal [facility] Comment on above: Performed By: #### B AIR CONTROL ELECTRONICS OPERATOR, BMP, HSTROPN ####[facility] Mnxarmkvgx99[address] [place] [address]Dr. Garima Pulliam Calcium [Mass/Vol] 8.8 mg/dL Normal 8.5-10.[address] [facility] Comment on above: Performed By: #### B AIR CONTROL ELECTRONICS OPERATOR, BMP, HSTROPN ####[facility] Tqttinlmqb[address] [place], [place] [address]Dr. Garima Pulliam Chloride [Moles/Vol] 106 mmol/L Normal 98-107 [facility] Comment on above: Performed By: #### B AIR CONTROL ELECTRONICS OPERATOR, BMP, HSTROPN ####[facility] Wmkarhqcrk[address] [place], [place] [address]Dr. Garima Pulliam CO2 [Moles/Vol] 31.4 mmol/L Normal 21.0-32.0 The [facility] Comment on above: Performed By: #### B AIR CONTROL ELECTRONICS OPERATOR, BMP, HSTROPN ####[facility] Sefhctjerf25[address] [place], [place] [address]Dr. Garima Pulliam Creatinine [Mass/Vol] 0.75 mg/dL Normal 0.70-1.30 [facility] Comment on above: Performed By: #### B AIR CONTROL ELECTRONICS OPERATOR, BMP, HSTROPN ####[facility] Wfzsdgilss4[address] [place] [address]Dr. Garima Pulliam EGFR-AF SOMALI >60 Normal >=60 The [facility] Comment on above: Performed By: #### B AIR CONTROL ELECTRONICS OPERATOR, BMP, HSTROPN ####[facility] Vfdfpdnsjn69[address] [place] [address]Dr. Garima Pulliam EGFR-NON AF SOMALI >60 Normal >=60 [facility] Comment on above: Performed By: #### B AIR CONTROL ELECTRONICS OPERATOR, BMP, HSTROPN ####[facility] Gobllektjy5[address] [place] [address]Dr. Garima Pulliam Glucose [Mass/Vol] 161 mg/dL Critically high 74-106 [facility] Comment on above: Performed By: #### B AIR CONTROL ELECTRONICS OPERATOR, BMP, HSTROPN ####[facility] Vsyvrmkgoa96[address] [place] [address]Dr. Garima Pulliam Potassium [Moles/Vol] 4.1 mmol/L Normal 3.5-5.1 [facility] Comment on above: Performed By: #### B AIR CONTROL ELECTRONICS OPERATOR, BMP, HSTROPN ####[facility] Gqwtzowvte0893 [place] [address]Dr. Garima Pulliam Sodium [Moles/Vol] 140 mmol/L Normal 136-[address] [facility] Comment on above: Performed By: #### B AIR CONTROL ELECTRONICS OPERATOR, BMP, HSTROPN ####[facility] Joxzuhgshf101[address] [place] [address]Dr. Garima Pulliam Urea nitrogen [Mass/Vol] 7.0 mg/dL Normal 7.0-18.0 [facility] Comment on above: Performed By: #### B AIR CONTROL ELECTRONICS OPERATOR, BMP, HSTROPN ####[facility] Hxzbzonjoc7780 [place] [address]Dr. Garima Pulliam Urea nitrogen/Creatinine [Mass ratio] 9.3 mg/mg Normal [facility] Comment on above: Performed By: #### B AIR CONTROL ELECTRONICS OPERATOR, BMP, HSTROPN ####[facility] Tkajawadvy8[address] [place] [address]Dr. Garima Pulliam TROPONIN, HIGH SENSITIVITYon 03-16-2023 HSTROP 9.7 pg/mL Normal 4.0-76.1 [facility] Comment on above: Result Comment: CUT- OFF POINTS HAVE BEEN ESTABLISHED BASED ON THE FOURTH UNIVERSAL DEFINITIONS OF MYOCARDIALINFARCTION. THE UPPER REFERENCE LIMIT (URL) OF TROPONIN, DEFINED THE 99TH PERCENTILE OFcTnI DISTRIBUTION IN A REFERENCE POPULATION, HAS BEEN CONFIRMED THE DECISION THRESHOLDFOR [place] DIAGNOSIS. Performed By: #### B AIR CONTROL ELECTRONICS OPERATOR, BMP, HSTROPN ####[facility] Kgljuvnyol23[address] [place] [address]Dr. Garima Pulliam XR CHEST 1 Von 03-16-2023 XR CHEST 1 V Normal [facility] BNPon 03-06-2023 Natriuretic peptide B (Bld) [Mass/Vol] 111.0 pg/mL Normal <=900.0 [facility] Comment on above: Performed By: #### C MP, BNP, CK ####[facility] Sthayldlss6582 [place] [address]Dr. Chapisrenu Pulliam CBC AUTO DIFFon 03-06-2023 BASO # 0.0 103/ul Normal 0.0-0.1 [facility] Comment on above: Performed By: #### C BC ####[facility] Qoeerhpsmj7[address] [place], [place] [address]Dr. Garima Pulliam Basophils/100 WBC (Bld) 0.2 % Normal 0.2-2.0 [facility] Comment on above: Performed By: #### C BC ####[facility] Pyesfludib22[address] [place], [place] [address]Dr. Garima Pulliam EO # 0.3 103/ul Normal 0.0-0.7 [facility] Comment on above: Performed By: #### C BC ####[facility] Hotueanxji0099[address] [place], [place] [address]Dr. Garima Pulliam Eosinophils/100 WBC (Bld) 3.5 % Normal 0.9-7.0 [facility] Comment on above: Performed By: #### C BC ####[facility] Utvwjatkya[address] [place], [place] [address]Dr. Garima Pulliam Erythrocyte distribution width (RBC) [Ratio] 13.3 % Normal 11.0-15.0 [facility] Comment on above: Performed By: #### C BC ####[facility] Psbdgpbknb8[address] [place], [place] [address]Dr. Garima Pulliam Hematocrit (Bld) [Volume fraction] 43.7 % Normal 42.0-54.0 [facility] Comment on above: Performed By: #### C BC ####[facility] Luemlmzcit99[address] [place] [address]Dr. Garima Pulliam Hemoglobin (Bld) [Mass/Vol] 14.7 g/dL Normal 14.0-18.0 [facility] Comment on above: Performed By: #### C BC ####[facility] Gbwamesynh7287 [place] [address]Dr. Chapisrenu Heraclio IG # 0.03 10e3/ul Normal 0.00-0.03 [facility] Comment on above: Performed By: #### C BC ####[facility] Afpkfzshfi25[address] [place], [place] [address]Dr. Garima Pulliam IG % 0.4 % Normal 0.0-0.5 [facility] Comment on above: Performed By: #### C BC ####[facility] Zyphsqfmxm46[address] [place], [place] [address]Dr. Garima Pulliam LYMPH # 2.0 103/ul Normal 1.2-3.8 [facility] Comment on above: Performed By: #### C BC ####[facility] Fzmbbhmkyf46[address] [place], [place] [address]DrAdalberto Pulliam Lymphocytes/100 WBC (Bld) 23.7 % Normal 20.5-60.0 [facility] Comment on above: Performed By: #### C BC ####[facility] Gncvanclfi4[address] [place] [address]Dr. Garima Pulliam MANUAL DIFF REQ NO Normal [facility] Comment on above: Performed By: #### C BC ####[facility] Ryrwuqrjmf4265 [place] [id number] Pulliam MCH (RBC) [Entitic mass] 30.1 pg Normal 25.9-34.0 [facility] Comment on above: Performed By: #### C BC ####[facility] Cbgqjlbsyy2101 [place] [phone]. Garima Pulliam MCHC (RBC) [Mass/Vol] 33.6 g/dL Normal 29.9-35.2 [facility] Comment on above: Performed By: #### C BC ####[facility] Zerpiympti1757 [place] [address]Dr. Garima Heraclio MCV (RBC) [Entitic vol] 89.4 fL Normal 80.0-94.0 [facility] Comment on above: Performed By: #### C BC ####[facility] Qtvgorlidi5571 [place] [address]Dr. Garima Pulliam MONO # 0.8 103/ul Normal 0.3-0.8 [facility] Comment on above: Performed By: #### C BC ####[facility] Nhwrmwjskm0466 [place] [address]Dr. Garima Pulliam Monocytes/100 WBC (Bld) 9.0 % Normal 1.7-12.0 [facility] Comment on above: Performed By: #### C BC ####[facility] Ghuswzsfbx[address] [place], [place] [address]Dr. Garima Pulliam NEUT # 5.4 103/ul Normal 1.4-6.5 [facility] Comment on above: Performed By: #### C BC ####[facility] Vmuqyghazv[address] [place], [place] [address]Dr. Garima Pulliam Neutrophils/100 WBC (Bld) 63.2 % Normal 43.0-75.0 [facility] Comment on above: Performed By: #### C BC ####[facility] Tlrxtanmes6[address] [place], [place] [address]Dr. Garima Pulliam Platelet mean volume (Bld) [Entitic vol] 9.0 fL Critically low 9.5-13.5 [facility] Comment on above: Performed By: #### C BC ####[facility] Thwggenxtd[address] [place], [place] [address]Dr. Garima Pulliam PLT 218 103/ul Normal 150-450 [facility] Comment on above: Performed By: #### C BC ####[facility] Gxoedtvstv85[address] [place] [id number]. Garima Pulliam RBC 4.89 106/ul Normal 4.70-6.10 [facility] Comment on above: Performed By: #### C BC ####[facility] Mqjmimaqwq7304 [place] [address]Dr. Garima Pulliam WBC 8.5 103/ul Normal 4.0-11.0 [facility] Comment on above: Performed By: #### C BC ####[facility] Idigpvmwpw8939 [place] [address]Dr. Garima Pulliam CPKon 03-06-2023 CK [Catalytic activity/Vol] 191 U/L Normal 39-308 [facility] Comment on above: Performed By: #### C MP, BNP, CK ####[facility] Goxhmlfqdp[address] [place] [address]Dr. Garima Pulliam PROF 14(COMP METB)on 023 Albumin [Mass/Vol] 3.6 g/dL Normal 3.4-5.[address] [facility] Comment on above: Performed By: #### C MP, BNP, CK ####[facility] Ypcvamztdg1570 [place] [address]Dr. Garima Pulliam Albumin/Globulin [Mass ratio] 1.2 {ratio} Normal [facility] Comment on above: Performed By: #### C MP, BNP, CK ####[facility] Yqekonhsbo4983 [place] [address]Dr. Garima Pulliam ALP [Catalytic activity/Vol] 91 U/L Normal 46-116 [facility] Comment on above: Performed By: #### C MP, BNP, CK ####[facility] Vwposluxyn8979 [place] [address]Dr. Garima Pulliam ALT [Catalytic activity/Vol] 33 U/L Normal 16-63 [facility] Comment on above: Performed By: #### C MP, BNP, CK ####[facility] Fnvirqtjqo6955 [place] [address]Dr. Garima Pulliam Anion gap [Moles/Vol] 10.3 mmol/L Normal [facility] Comment on above: Performed By: #### C MP, BNP, CK ####[facility] Jpxdamfczk0347 [place] [address]Dr. Garima Pulliam AST [Catalytic activity/Vol] 17 U/L Normal 15-37 [facility] Comment on above: Performed By: #### C MP, BNP, CK ####[facility] Kvoewdjqyf2953 [place] [address]Dr. Garima Pulliam Bilirubin [Mass/Vol] 0.4 mg/dL Normal 0.2-1.0 [facility] Comment on above: Performed By: #### C MP, BNP, CK ####[facility] Qundmrxife9755 [place] [address]Dr. Garima Pulliam Calcium [Mass/Vol] 9.1 mg/dL Normal 8.5-10.1 [facility] Comment on above: Performed By: #### C MP, BNP, CK ####[facility] Gziwafvzfl6238 [place] [address]Dr. Garima Pulliam Chloride [Moles/Vol] 102 mmol/L Normal 98-107 [facility] Comment on above: Performed By: #### C MP, BNP, CK ####[facility] Ifrlcogdgx6264 [place] [address]Dr. Garima Pulliam CO2 [Moles/Vol] 29.7 mmol/L Normal 21.0-32.0 The [facility] Comment on above: Performed By: #### C MP, BNP, CK ####[facility] Yclluxkxcu9859 [place] [address]Dr. Garima Pulliam Creatinine [Mass/Vol] 0.79 mg/dL Normal 0.70-1.30 [facility] Comment on above: Performed By: #### C MP, BNP, CK ####[facility] Rgrphqoawz0721 [place] [address]Dr. Garima Pulliam EGFR-AF SOMALI >60 Normal >=60 The [facility] Comment on above: Performed By: #### C MP, BNP, CK ####[facility] Gjssmcdmrq0792 [place] [address]Dr. Garima Pulliam EGFR-NON AF SOMALI >60 Normal >=60 [facility] Comment on above: Performed By: #### C MP, BNP, CK ####[facility] Juejpqflnx2243 [place] [address]Dr. Garima Pulliam Globulin (S) [Mass/Vol] 3.0 g/dL Normal [facility] Comment on above: Performed By: #### C MP, BNP, CK ####[facility] Rrmaaohuqp0595 [place] [address]Dr. Garima Pulliam Glucose [Mass/Vol] 202 mg/dL Critically high 74-106 [facility] Comment on above: Performed By: #### C MP, BNP, CK ####[facility] Evsuhgadow6887 [place] [address]Dr. Garima Pulliam Potassium [Moles/Vol] 4.0 mmol/L Normal 3.5-5.1 [facility] Comment on above: Performed By: #### C MP, BNP, CK ####[facility] Lfqfhyjewf8677 [place] [address]Dr. Garima Pulliam Protein [Mass/Vol] 6.6 g/dL Normal 6.4-8.[address] [facility] Comment on above: Performed By: #### C MP, BNP, CK ####[facility] Xdehlmfjpg30[address] [place], [place] [address]Dr. Garima Pulliam Sodium [Moles/Vol] 138 mmol/L Normal 136-[address] [facility] Comment on above: Performed By: #### C MP, BNP, CK ####[facility] Okxkswmggx724[address] [place], [place] [address]Dr. Garima Pulliam Urea nitrogen [Mass/Vol] 10.0 mg/dL Normal 7.0-18.0 [facility] Comment on above: Performed By: #### C MP, BNP, CK ####[facility] Neumecdsik7803 [place] [address]Dr. Garima Pulliam Urea nitrogen/Creatinine [Mass ratio] 12.7 mg/mg Normal [facility] Comment on above: Performed By: #### C MP, BNP, CK ####[facility] Ukqbdnsyhi5461 [place] [address]Dr. Garima Pulliam US VERONICA DOP LEG BILon 023 US VERONICA DOP LEG BENOIT Normal [facility] CBC AUTO DIFFon 01-13-2023 BASO # 0.0 103/ul Normal 0.0-0.1 [facility] Comment on above: Performed By: #### C BC ####[facility] Edtgnkdzxa1712 [place] [id number]. Chapisrenu Pulliam Basophils/100 WBC (Bld) 0.0 % Critically low 0.2-2.0 [facility] Comment on above: Performed By: #### C BC ####[facility] Sopqmctson6671 [place] [address]Dr. Garima Pulliam EO # 0.0 103/ul Normal 0.0-0.7 [facility] Comment on above: Performed By: #### C BC ####[facility] Gpjvodznwf[address] [place], [place] [address]Dr. Garima Pulliam Eosinophils/100 WBC (Bld) 0.0 % Critically low 0.9-7.0 [facility] Comment on above: Performed By: #### C BC ####[facility] Ktfcxzlnoq9628 [place] [address]Dr. Garima Pulliam Erythrocyte distribution width (RBC) [Ratio] 13.2 % Normal 11.0-15.0 [facility] Comment on above: Performed By: #### C BC ####[facility] Qthsvrvghu68[address] [place], [place] [address]Dr. Garima Pulliam Hematocrit (Bld) [Volume fraction] 46.7 % Normal 42.0-54.0 [facility] Comment on above: Performed By: #### C BC ####[facility] Kijoiuoean[address] [place], [place] [address]Dr. Garima Pulliam Hemoglobin (Bld) [Mass/Vol] 15.6 g/dL Normal 14.0-18.0 [facility] Comment on above: Performed By: #### C BC ####[facility] Bnnjekiamx[address] [place], [place] [address]Dr. Garima Pulliam IG # 0.01 10e3/ul Normal 0.00-0.03 [facility] Comment on above: Performed By: #### C BC ####[facility] Gqrlezdzpt7122 [place] [id number]. Garima Pulliam IG % 0.2 % Normal 0.0-0.5 [facility] Comment on above: Performed By: #### C BC ####[facility] Jyppiowtvi5899 [place] [phone]. Garima Pulliam LYMPH # 0.8 103/ul Critically low 1.2-3.8 [facility] Comment on above: Performed By: #### C BC ####[facility] Gkioueltew9029 [place] [phone]. Garima Pulliam Lymphocytes/100 WBC (Bld) 12.7 % Critically low 20.5-60.0 [facility] Comment on above: Performed By: #### C BC ####[facility] Gcijpuvwhi40[address] [place] [address]Dr. Garima Pulliam MANUAL DIFF REQ NO Normal [facility] Comment on above: Performed By: #### C BC ####[facility] Bhtmyhexen4112 [place] [phone]. Garima Pulliam MCH (RBC) [Entitic mass] 30.2 pg Normal 25.9-34.0 [facility] Comment on above: Performed By: #### C BC ####[facility] Wcjfwijxrv6685 [place] [phone]. Garima Pulliam MCHC (RBC) [Mass/Vol] 33.4 g/dL Normal 29.9-35.2 [facility] Comment on above: Performed By: #### C BC ####[facility] Dwuqvtrnca9500 [place] [phone]. Garima Pulliam MCV (RBC) [Entitic vol] 90.3 fL Normal 80.0-94.0 [facility] Comment on above: Performed By: #### C BC ####[facility] Wrcvkhhyow5486 [place] [phone]. Garima Heraclio MONO # 0.1 103/ul Critically low 0.3-0.8 [facility] Comment on above: Performed By: #### C BC ####[facility] Hgjxpzfgvq4678 [place] [phone]. Garima Pulliam Monocytes/100 WBC (Bld) 0.9 % Critically low 1.7-12.0 [facility] Comment on above: Performed By: #### C BC ####[facility] Ujtqlpifig3979 [place] [phone]. Garima Pulliam NEUT # 5.6 103/ul Normal 1.4-6.5 [facility] Comment on above: Performed By: #### C BC ####[facility] Vhgtnzpqsc9593 [place] [phone]. Garima Pulliam Neutrophils/100 WBC (Bld) 86.2 % Critically high 43.0-75.0 [facility] Comment on above: Performed By: #### C BC ####[facility] Khoqlzpsoy6359 [place] [address]Dr. Garima Pulliam Platelet mean volume (Bld) [Entitic vol] 9.1 fL Critically low 9.5-13.5 [facility] Comment on above: Performed By: #### C BC ####[facility] Qdliizhiid320[address] [place], [place] [address]Dr. Garima Pulliam PLT 169 103/ul Normal 150-450 [facility] Comment on above: Performed By: #### C BC ####[facility] Wvqhzqgvai[address] [place], [place] [address]Dr. Garima Pulliam RBC 5.17 106/ul Normal 4.70-6.10 [facility] Comment on above: Performed By: #### C BC ####[facility] Mhvjrcytct[address] [place], [place] [address]Dr. Garima Pulliam WBC 6.5 103/ul Normal 4.0-11.0 [facility] Comment on above: Performed By: #### C BC ####[facility] Axcnlkfgrf13[address] [place], [place] [address]Dr. Garima Pulliam D-DIMERon 01-13-2023 D-DIMER 0.41 mg/L FEU Normal <=0.59 [facility] Comment on above: Performed By: #### D DIM ####[facility] Lykznfadej5785 [place] [address]Dr. Garima Pulliam D-DIMER COMMENTS SEE BELOW Normal [facility] Comment on above: Result Comment: Incr [...] generalized hospitalization. Performed By: #### D DIM ####[facility] Fwkhmgtgzn25[address] [place], [place] [address]Dr. Garima Pulliam PROF 14(COMP METB)on 023 Albumin [Mass/Vol] 3.4 g/dL Normal 3.4-5.[address] [facility] Comment on above: Performed By: #### C MP ####[facility] Kuyotmbols[address] [place], [place] [address]Dr. Garima Pulliam Albumin/Globulin [Mass ratio] 1.3 {ratio} Normal [facility] Comment on above: Performed By: #### C MP ####[facility] Xoyltqmggu4620[address] [place], [place] [address]Dr. Garima Pulliam ALP [Catalytic activity/Vol] 83 U/L Normal 46-116 [facility] Comment on above: Performed By: #### C MP ####[facility] Gznworcowp7[address] [place], [place] [address]Dr. Garima Pulliam ALT [Catalytic activity/Vol] 25 U/L Normal 16-63 [facility] Comment on above: Performed By: #### C MP ####[facility] Zvhvmybzxq7635 [place] [address]Dr. Garima Pulliam Anion gap [Moles/Vol] 14.5 mmol/L Normal [facility] Comment on above: Performed By: #### C MP ####[facility] Tcuxxugefs957[address] [place], [place] [address]Dr. Garima Pulliam AST [Catalytic activity/Vol] 19 U/L Normal 15-37 [facility] Comment on above: Performed By: #### C MP ####[facility] Xlydhayani858[address] [place], [place] [address]Dr. Garima Pulliam Bilirubin [Mass/Vol] 0.4 mg/dL Normal 0.2-1.0 [facility] Comment on above: Performed By: #### C MP ####[facility] Sadbgywqrm424[address] [place], [place] [address]Dr. Garima Pulliam Calcium [Mass/Vol] 8.7 mg/dL Normal 8.5-10.[address] [facility] Comment on above: Performed By: #### C MP ####[facility] Djhcyroazg1887[address] [place], [place] [address]Dr. Garima Pulliam Chloride [Moles/Vol] 104 mmol/L Normal 98-107 [facility] Comment on above: Performed By: #### C MP ####[facility] Cbshitpjdl480[address] [place], [place] [address]Dr. Garima Pulliam CO2 [Moles/Vol] 24.5 mmol/L Normal 21.0-32.0 [facility] Comment on above: Performed By: #### C MP ####[facility] Fhuymlwrxj339[address] [place], [place] [address]Dr. Garima Pulliam Creatinine [Mass/Vol] 0.70 mg/dL Normal 0.70-1.30 [facility] Comment on above: Performed By: #### C MP ####[facility] Vslbiaefzl33[address] [place], [place] [address]Dr. Garima Heraclio EGFR-AF SOMALI >60 Normal >=60 [facility] Comment on above: Performed By: #### C MP ####[facility] Qaeehdgakf[address] [place], [place] [address]Dr. Chapisrenu Heraclio EGFR-NON AF SOMALI >60 Normal >=60 [facility] Comment on above: Performed By: #### C MP ####[facility] Mqwsdoxhvm8[address] [place], [place] [address]Dr. Chapisrenu Pulliam Globulin (S) [Mass/Vol] 2.6 g/dL Normal [facility] Comment on above: Performed By: #### C MP ####[facility] Ypabqxfnhr2989 [place] [address]Dr. Garima Pulliam Glucose [Mass/Vol] 196 mg/dL Critically high 74-106 [facility] Comment on above: Performed By: #### C MP ####[facility] Uipkzcdlhg6755 [place] [address]Dr. Garima Pulliam Potassium [Moles/Vol] 4.0 mmol/L Normal 3.5-5.1 [facility] Comment on above: Performed By: #### C MP ####[facility] Pcztjnvgby9254 [place] [address]Dr. Garima Pulliam Protein [Mass/Vol] 6.0 g/dL Critically low 6.4-8.2 [facility] Comment on above: Performed By: #### C MP ####[facility] Jbykopbeng[address] [place], [place] [address]Dr. Garima Pulliam Sodium [Moles/Vol] 139 mmol/L Normal 136-[address] [facility] Comment on above: Performed By: #### C MP ####[facility] Wverlgyqej84[address] [place], [place] [address]Dr. Garima Pulliam Urea nitrogen [Mass/Vol] 7.0 mg/dL Normal 7.0-18.0 [facility] Comment on above: Performed By: #### C MP ####[facility] Rkipdixxfz104[address] [place], [place] [address]Dr. Garima Heraclio Urea nitrogen/Creatinine [Mass ratio] 10.0 mg/mg Normal [facility] Comment on above: Performed By: #### C MP ####[facility] Kvrennrfbj456[address] [place], [place] [address]Dr. Garima Heraclio BNPon 01-12-2023 Natriuretic peptide B (Bld) [Mass/Vol] 141.0 pg/mL Normal <=900.0 [facility] Comment on above: Performed By: #### C MP, BNP, HSTROPN ####[facility] Ssxxnlbqmh[address] [place], [place] [address]Dr. Garima Heraclio CBC AUTO DIFFon 01-12-2023 BASO # 0.0 103/ul Normal 0.0-0.1 [facility] Comment on above: Performed By: #### C BC ####[facility] Yizmoditix4[address] [place] [id number]. Garima Heraclio Basophils/100 WBC (Bld) 0.2 % Normal 0.2-2.0 [facility] Comment on above: Performed By: #### C BC ####[facility] Bqinhthrus[address] [place] [address]Dr. Garima Heraclio EO # 0.2 103/ul Normal 0.0-0.7 [facility] Comment on above: Performed By: #### C BC ####[facility] Eqnacaoadl34[address] [place] [address]Dr. Garima Heraclio Eosinophils/100 WBC (Bld) 2.7 % Normal 0.9-7.0 [facility] Comment on above: Performed By: #### C BC ####[facility] Vtlhkbqjjv[address] [place], [place] [address]Dr. Garima Pulliam Erythrocyte distribution width (RBC) [Ratio] 13.3 % Normal 11.0-15.0 [facility] Comment on above: Performed By: #### C BC ####[facility] Cscfkmahcl[address] [place], [place] [address]Dr. Garima Pulliam Hematocrit (Bld) [Volume fraction] 42.3 % Normal 42.0-54.0 [facility] Comment on above: Performed By: #### C BC ####[facility] Xxzpfhzqdo99[address] [place], [place] [address]Dr. Garima Pulliam Hemoglobin (Bld) [Mass/Vol] 14.3 g/dL Normal 14.0-18.0 [facility] Comment on above: Performed By: #### C BC ####[facility] Ngvlfwhefk24[address] [place], [place] [address]Dr. Garima Pulliam IG # 0.02 10e3/ul Normal 0.00-0.03 [facility] Comment on above: Performed By: #### C BC ####[facility] Zenhpgofqe29[address] [place] [id number]. Garima Pulliam IG % 0.2 % Normal 0.0-0.5 [facility] Comment on above: Performed By: #### C BC ####[facility] Ppoqnlnwjb4326 [place] [id number]. Garima Pulliam LYMPH # 2.6 103/ul Normal 1.2-3.8 [facility] Comment on above: Performed By: #### C BC ####[facility] Coqpqkouep9[address] [place] [id number]. Garima Heraclio Lymphocytes/100 WBC (Bld) 29.6 % Normal 20.5-60.0 [facility] Comment on above: Performed By: #### C BC ####[facility] Idnrnponqw1191 [place] [address]Dr. Garima Heraclio MANUAL DIFF REQ NO Normal [facility] Comment on above: Performed By: #### C BC ####[facility] Zuzpfcaxsm6239 [place] [phone]. Garima Pulliam MCH (RBC) [Entitic mass] 30.2 pg Normal 25.9-34.0 [facility] Comment on above: Performed By: #### C BC ####[facility] Ekqwpsvmdv4216 [place] [address]Dr. Garima Pulliam MCHC (RBC) [Mass/Vol] 33.8 g/dL Normal 29.9-35.2 [facility] Comment on above: Performed By: #### C BC ####[facility] Iqqrorsyup9571 [place] [phone]. Garima Pulliam MCV (RBC) [Entitic vol] 89.2 fL Normal 80.0-94.0 [facility] Comment on above: Performed By: #### C BC ####[facility] Dlavhiqsku20[address] [place], [place] [address]Dr. Chapisrenu Pulliam MONO # 0.7 103/ul Normal 0.3-0.8 [facility] Comment on above: Performed By: #### C BC ####[facility] Jlocwhodkv0299 [place] [phone]. Garima Pulliam Monocytes/100 WBC (Bld) 8.3 % Normal 1.7-12.0 [facility] Comment on above: Performed By: #### C BC ####[facility] Sarxllggrl5139 [place] [phone]. Garima Pulliam NEUT # 5.1 103/ul Normal 1.4-6.5 [facility] Comment on above: Performed By: #### C BC ####[facility] Zwcvnrtdgx3506 [place] [phone]. Garima Pulliam Neutrophils/100 WBC (Bld) 59.0 % Normal 43.0-75.0 [facility] Comment on above: Performed By: #### C BC ####[facility] Ckxssrxqqv6517 [place] [address]Dr. Garima Pulliam Platelet mean volume (Bld) [Entitic vol] 8.7 fL Critically low 9.5-13.5 [facility] Comment on above: Performed By: #### C BC ####[facility] Fhkpfwqxcj3473 [place] [address]Dr. Garima Pulliam PLT 182 103/ul Normal 150-450 [facility] Comment on above: Performed By: #### C BC ####[facility] Pqphtxmqsz7200 [place] [phone]. Garima Pulliam RBC 4.74 106/ul Normal 4.70-6.10 [facility] Comment on above: Performed By: #### C BC ####[facility] Vwpzecczcz[address] [place], [place] [address]Dr. Garima Pulliam WBC 8.7 103/ul Normal 4.0-11.0 [facility] Comment on above: Performed By: #### C BC ####[facility] Hcohiouine[address] [place], [place] [address]Dr. Garima Pulliam Covid-19 PCR (CVDTB)on 12-25 SARS-CoV-2 (COVID-19) RNA MARIE+probe Ql (Unsp spec) Not detected Normal NOT DETECTED [facility] Comment on above: Result Comment: When [...] for this test is supported by the Seafood Process Worker of Health and Human Service's declaration that [...] be used). Performed By: #### C VDTBH ####[facility] Ptiikialdu8702 [place] [address]Dr. Garima Pulliam PROF 14(COMP METB)on 023 Albumin [Mass/Vol] 3.6 g/dL Normal 3.4-5.[address] [facility] Comment on above: Performed By: #### C MP, BNP, HSTROPN ####[facility] Dhitqgatfy9968 [place] [address]Dr. Garima Pulliam Albumin/Globulin [Mass ratio] 1.5 {ratio} Normal [facility] Comment on above: Performed By: #### C MP, BNP, HSTROPN ####[facility] Kraccjfslm8898 [place] [address]Dr. Garima Pulliam ALP [Catalytic activity/Vol] 79 U/L Normal 46-116 [facility] Comment on above: Performed By: #### C MP, BNP, HSTROPN ####[facility] Ysqxdjwmig9574 [place] [address]Dr. Garima Pulliam ALT [Catalytic activity/Vol] 27 U/L Normal 16-63 [facility] Comment on above: Performed By: #### C MP, BNP, HSTROPN ####[facility] Dvqsyyfdjb5926 [place] [address]Dr. Garima Pulliam Anion gap [Moles/Vol] 11.7 mmol/L Normal [facility] Comment on above: Performed By: #### C MP, BNP, HSTROPN ####[facility] Kigcxiofhi6479 [place] [address]Dr. Garima Pulliam AST [Catalytic activity/Vol] 21 U/L Normal 15-37 [facility] Comment on above: Performed By: #### C MP, BNP, HSTROPN ####[facility] Zlsginootr9210 [place] [address]Dr. Garima Pulliam Bilirubin [Mass/Vol] 0.3 mg/dL Normal 0.2-1.0 [facility] Comment on above: Performed By: #### C MP, BNP, HSTROPN ####[facility] Glmlhpkcji0807 [place] [address]Dr. Garima Pulliam Calcium [Mass/Vol] 8.9 mg/dL Normal 8.5-10.[address] [facility] Comment on above: Performed By: #### C MP, BNP, HSTROPN ####[facility] Prfcxkbdvi9975 [place] [address]Dr. Garima Pulliam Chloride [Moles/Vol] 107 mmol/L Normal 98-107 [facility] Comment on above: Performed By: #### C MP, BNP, HSTROPN ####[facility] Tqovjuhitf1247 [place] [address]Dr. Garima Pulliam CO2 [Moles/Vol] 26.0 mmol/L Normal 21.0-32.0 The [facility] Comment on above: Performed By: #### C MP, BNP, HSTROPN ####[facility] Hsouwnfhej2960 [place] [address]Dr. Garima Pulliam Creatinine [Mass/Vol] 0.65 mg/dL Critically low 0.70-1.30 [facility] Comment on above: Performed By: #### C MP, BNP, HSTROPN ####[facility] Idjcfxrsvm7644 [place] [address]Dr. Yilan Pulliam EGFR-AF SOMALI >60 Normal >=60 [facility] Comment on above: Performed By: #### C MP, BNP, HSTROPN ####[facility] Xqtmnfnrcn8095 [place] [address]Dr. Garima Pulliam EGFR-NON AF SOMALI >60 Normal >=60 [facility] Comment on above: Performed By: #### C MP, BNP, HSTROPN ####[facility] Ggeznarjed7393 [place] [address]Dr. Garima Pulliam Globulin (S) [Mass/Vol] 2.4 g/dL Normal [facility] Comment on above: Performed By: #### C MP, BNP, HSTROPN ####[facility] Lpjmrpyftj[address] [place], [place] [address]Dr. Garima Pulliam Glucose [Mass/Vol] 85 mg/dL Normal 74-[address] [facility] Comment on above: Performed By: #### C MP, BNP, HSTROPN ####[facility] Shfwlxahdg8299 [place] [address]Dr. Garima Pulliam Potassium [Moles/Vol] 3.7 mmol/L Normal 3.5-5.1 [facility] Comment on above: Performed By: #### C MP, BNP, HSTROPN ####[facility] Vpwmyrtnqv0850 [place] [address]Dr. Garima Pulliam Protein [Mass/Vol] 6.0 g/dL Critically low 6.4-8.2 [facility] Comment on above: Performed By: #### C MP, BNP, HSTROPN ####[facility] Waljpdnjhn030[address] [place] [address]Dr. Garima Pulliam Sodium [Moles/Vol] 141 mmol/L Normal 136-145 [facility] Comment on above: Performed By: #### C MP, BNP, HSTROPN ####[facility] Repfmcqnmh1520 [place] [address]Dr. Garima Pulliam Urea nitrogen [Mass/Vol] 5.0 mg/dL Critically low 7.0-18.0 [facility] Comment on above: Performed By: #### C MP, BNP, HSTROPN ####[facility] Bnzaokattx84[address] [place] [address]Dr. Garima Pulliam Urea nitrogen/Creatinine [Mass ratio] 7.7 mg/mg Normal [facility] Comment on above: Performed By: #### C MP, BNP, HSTROPN ####[facility] Dxgdrmlpju4772 [place] [address]Dr. Garima Pulliam PROTIMEon 01-12-2023 INR Coag (PPP) [Relative time] 1.16 {INR} Normal [facility] Comment on above: Performed By: #### P TT, PT ####[facility] Rpguriwylo6738 [place] [address]Dr. Garima Pulliam INR GUIDELINES SEE BELOW Normal [facility] Comment on above: Result Comment: WESLEY RED INR: 2.0 - 3.0 CONDITIONS NOT LISTED BELOW 2.5 - 3.5 FOR PROSTHETIC HEART VALVE REPLACEMENT 2.5 - 3.5 RECURRENT THROMBOSIS Performed By: #### P TT, PT ####[facility] Snrbuffxef[address] [place], [place] [address]Dr. Garima Pulliam PT Coag (PPP) [Time] 12.2 s Critically high 9.0-11.6 [facility] Comment on above: Performed By: #### P TT, PT ####[facility] Aequjaybxi4249 [place] [address]Dr. Garima Pulliam PTTon 01-12-2023 aPTT Coag (Bld) [Time] 29.1 s Normal 22.3-36.2 [facility] Comment on above: Performed By: #### P TT, PT ####[facility] Qtkopurixm[address] [place], [place] [address]Dr. Garima Pulliam TROPONIN, HIGH SENSITIVITYon 01-12-2023 HSTROP 10.3 pg/mL Normal 4.0-76.1 [facility] Comment on above: Result Comment: CUT- OFF POINTS HAVE BEEN ESTABLISHED BASED ON THE FOURTH UNIVERSAL DEFINITIONS OF MYOCARDIALINFARCTION. THE UPPER REFERENCE LIMIT (URL) OF TROPONIN, DEFINED THE 99TH PERCENTILE OFcTnI DISTRIBUTION IN A REFERENCE POPULATION, HAS BEEN CONFIRMED THE DECISION THRESHOLDFOR [place] DIAGNOSIS. Performed By: #### H STROPN ####[facility] Qwuobtgmmn5068 [place] [address]Dr. Garima Pulliam HSTROP 9.2 pg/mL Normal 4.0-76.1 [facility] Comment on above: Result Comment: CUT- OFF POINTS HAVE BEEN ESTABLISHED BASED ON THE FOURTH UNIVERSAL DEFINITIONS OF MYOCARDIALINFARCTION. THE UPPER REFERENCE LIMIT (URL) OF TROPONIN, DEFINED THE 99TH PERCENTILE OFcTnI DISTRIBUTION IN A REFERENCE POPULATION, HAS BEEN CONFIRMED THE DECISION THRESHOLDFOR [place] DIAGNOSIS. Performed By: #### C MP, BNP, HSTROPN ####[facility] Gauqehjpsr8397 [place] [address]Dr. Garima Pulliam XR CHEST 1 Von 01-12-2023 XR CHEST 1 V Normal [facility] XR CHEST 1 Von 01-01-2023 XR CHEST 1 V Normal [facility] CARDIAC NASH 3-6on 3 CK [Catalytic activity/Vol] 196 U/L Normal 39-308 [facility] Comment on above: Performed By: #### C MREP ####[facility] Ttagfrwhvj1054 [place] [address]Dr. Garima Pulliam CK.MB [Mass/Vol] 7.41 ng/mL Critically high <=3.60 [facility] Comment on above: Performed By: #### C MREP ####[facility] Inhembhgyk5877 [place] [address]Dr. Garima Pulliam HSTROP 10.3 pg/mL Normal 4.0-76.1 [facility] Comment on above: Result Comment: CUT- OFF POINTS HAVE BEEN ESTABLISHED BASED ON THE FOURTH UNIVERSAL DEFINITIONS OF MYOCARDIALINFARCTION. THE UPPER REFERENCE LIMIT (URL) OF TROPONIN, DEFINED THE 99TH PERCENTILE OFcTnI DISTRIBUTION IN A REFERENCE POPULATION, HAS BEEN CONFIRMED THE DECISION THRESHOLDFOR [place] DIAGNOSIS. Performed By: #### C MREP ####[facility] Duacyqsiww7853 [place] [id number]. Garima Pulliam XR CHEST 1 Von 12-26-2022 XR CHEST 1 V Normal [facility] BNPon 12-25-2022 Natriuretic peptide B (Bld) [Mass/Vol] 98.0 pg/mL Normal <=900.0 [facility] Comment on above: Performed By: #### B MARVIN FRENCH CMADM ####[facility] Zscdazbpym9178 [place] [address]Dr. Garima Pulliam CARDIAC NASH ADMITon 023 CK [Catalytic activity/Vol] 208 U/L Normal 39-308 [facility] Comment on above: Performed By: #### B MARVIN FRENCH CMADM ####[facility] Mgsssskslh8097 [place] [address]Dr. Garima Pulliam CK.MB [Mass/Vol] 7.63 ng/mL Critically high <=3.60 [facility] Comment on above: Performed By: #### B MARVIN FRENCH CMADM ####[facility] Xeosdcrpdr[address] [place], [place] [address]Dr. Garima Pulliam HSTROP 8.8 pg/mL Normal 4.0-76.1 [facility] Comment on above: Result Comment: CUT- OFF POINTS HAVE BEEN ESTABLISHED BASED ON THE FOURTH UNIVERSAL DEFINITIONS OF MYOCARDIALINFARCTION. THE UPPER REFERENCE LIMIT (URL) OF TROPONIN, DEFINED THE 99TH PERCENTILE OFcTnI DISTRIBUTION IN A REFERENCE POPULATION, HAS BEEN CONFIRMED THE DECISION THRESHOLDFOR [place] DIAGNOSIS. Performed By: #### B MARVIN FRENCH CMADM ####[facility] Xvlkfbkeov08[address] [place], [place] [address]Dr. Garima Pulliam DORIS 83 ng/mL Normal 16-96 [facility] Comment on above: Performed By: #### B MARVIN FRENCH CMADM ####[facility] Xfrshhzbrg[address] [place], [place] [address]Dr. Garima Pulliam CBC AUTO DIFFon 12-25-2022 BASO # 0.0 103/ul Normal 0.0-0.1 [facility] Comment on above: Performed By: #### C BC ####[facility] Vpmusgdqon[address] [place], [place] [address]Dr. Garima Pulliam Basophils/100 WBC (Bld) 0.0 % Critically low 0.2-2.0 [facility] Comment on above: Performed By: #### C BC ####[facility] Sygmnbjirp6726 [place] [address]Dr. Garima Pulliam EO # 0.0 103/ul Normal 0.0-0.7 [facility] Comment on above: Performed By: #### C BC ####[facility] Auapahrxuu[address] [place], [place] [address]Dr. Garima Pulliam Eosinophils/100 WBC (Bld) 0.7 % Critically low 0.9-7.0 [facility] Comment on above: Performed By: #### C BC ####[facility] Gjybglebsf[address] [place], [place] [address]Dr. Garima Pulliam Erythrocyte distribution width (RBC) [Ratio] 13.4 % Normal 11.0-15.0 [facility] Comment on above: Performed By: #### C BC ####[facility] Byxviiwdqr058[address] [place], [place] [address]Dr. Garima Pulliam Hematocrit (Bld) [Volume fraction] 42.9 % Normal 42.0-54.0 [facility] Comment on above: Performed By: #### C BC ####[facility] Mjvvnotnxc[address] [place], [place] [address]Dr. Garima Pulliam Hemoglobin (Bld) [Mass/Vol] 14.4 g/dL Normal 14.0-18.0 [facility] Comment on above: Performed By: #### C BC ####[facility] Dpdcrlpxbf39[address] [place], [place] [address]Dr. Garima Pulliam IG # 0.00 10e3/ul Normal 0.00-0.03 [facility] Comment on above: Performed By: #### C BC ####[facility] Ijirrobwqr[address] [place], [place] [address]Dr. Garima Pulliam IG % 0.0 % Normal 0.0-0.5 [facility] Comment on above: Performed By: #### C BC ####[facility] Iwejvmhjqj[address] [place], [place] [address]Dr. Garima Pulliam LYMPH # 2.4 103/ul Normal 1.2-3.8 [facility] Comment on above: Performed By: #### C BC ####[facility] Wgwdjcmluo7397 [place] [id number]. Chapisrenu Pulliam Lymphocytes/100 WBC (Bld) 29.2 % Normal 20.5-60.0 [facility] Comment on above: Performed By: #### C BC ####[facility] Hxdzfomusx8405 [place] [phone]. Garima Pulliam MANUAL DIFF REQ NO Normal [facility] Comment on above: Performed By: #### C BC ####[facility] Etalrgeqfj3023 [place] [phone]. Garima Pulliam MCH (RBC) [Entitic mass] 30.7 pg Normal 25.9-34.0 [facility] Comment on above: Performed By: #### C BC ####[facility] Exeftscwbo[address] [place], [place] [address]Dr. Garima Pulliam MCHC (RBC) [Mass/Vol] 33.6 g/dL Normal 29.9-35.2 [facility] Comment on above: Performed By: #### C BC ####[facility] Mzqisppdis[address] [place], [place] [address]Dr. Garima Pulliam MCV (RBC) [Entitic vol] 91.5 fL Normal 80.0-94.0 [facility] Comment on above: Performed By: #### C BC ####[facility] Imjigdcrdo[address] [place], [place] [address]Dr. Garima Pulliam MONO # 0.0 103/ul Critically low 0.3-0.8 [facility] Comment on above: Performed By: #### C BC ####[facility] Tklvambtcn1041 [place] [address]Dr. Garima Pulliam Monocytes/100 WBC (Bld) 8.0 % Normal 1.7-12.0 [facility] Comment on above: Performed By: #### C BC ####[facility] Lchheqieik[address] [place], [place] [address]Dr. Garima Pulliam NEUT # 5.1 103/ul Normal 1.4-6.5 [facility] Comment on above: Performed By: #### C BC ####[facility] Zqfsqnwqwy0306 [place], [place] [address]Hb. Garima Pulliam Neutrophils/100 WBC (Bld) 62.8 % Normal 43.0-75.0 [facility] Comment on above: Performed By: #### C BC ####[facility] Avxylfwlok9696 [place], [place] [address]Wm. Garima Pulliam Platelet mean volume (Bld) [Entitic vol] 8.6 fL Critically low 9.5-13.5 [facility] Comment on above: Performed By: #### C BC ####[facility] Xawhveiyrd0782 [place] [id number]. Garima Pulliam PLT 200 103/ul Normal 150-450 [facility] Comment on above: Performed By: #### C BC ####[facility] Cthukrehte3069 [place] [phone]. Garima Pulliam RBC 4.69 106/ul Critically low 4.70-6.10 [facility] Comment on above: Performed By: #### C BC ####[facility] Xuxznuyhji3642 [place], [place] [address]Uy. Garima Pulliam WBC 8.2 103/ul Normal 4.0-11.0 [facility] Comment on above: Performed By: #### C BC ####[facility] Jnufbhmpej9246 [place], [place] [address]Qg. Garima Pulliam [facility]on SARS-CoV-2 (COVID-19) RNA MARIE+probe Ql (Unsp spec) Not detected Normal NOT DETECTED [facility] Comment on above: Result Comment: When [...] for this test is supported by the Seafood Process Worker of Health and Human Service's declaration that [...] be used). Performed By: #### C VDTBH ####[facility] Yzvevlguzk[address] [place], [place] [address]Dr. Garima Pulliam INFLUENZA A AND B AGon 12-25 INFLUANEGH SEE BELOW Normal [facility] Comment on above: Result Comment: Nega tive for Flu A protein angiten. Infection due to Flu A cannot be ruled out. Flu A angiten in the sample may be below the detection limit of the test. Performed By: #### I NFLUAB ####[facility] Hgtlgyjvkg[address] [place], [place] [address]Dr. Garima Pulliam INFLUBNEGH SEE BELOW Normal [facility] Comment on above: Result Comment: Nega tive for Flu B protein antigen. Infection due to Flu B cannot be ruled out. Flu B antigen in the sample may be below the detection limit of the test. Performed By: #### I NFLUAB ####[facility] Aclktjrtmx[address] [place], [place] [address]Dr. Garima Pulliam INFLUENZA A AG Negative Normal NEGATIVE SEE COMMENT [facility] Comment on above: Performed By: #### I NFLUAB ####[facility] Cqcbzplnzr[address] [place], [place] [address]Dr. renu [facility] INFLUENZA B AG Negative Normal NEGATIVE SEE COMMENT [facility] Comment on above: Performed By: #### I NFLUAB ####[facility] Pfbdtlcmgo[address] [place], [place] [address]Dr. Garima Pulliam PROF CHEM 8 (BAS METB)on Anion gap [Moles/Vol] 11.1 mmol/L Normal [facility] Comment on above: Performed By: #### B AIR CONTROL ELECTRONICS OPERATOR, BMP, CMADM ####[facility] Cycnsiyvem[address] [place], [place] [address]Dr. Garima Pulliam Calcium [Mass/Vol] 8.5 mg/dL Normal 8.5-10.1 [facility] Comment on above: Performed By: #### B AIR CONTROL ELECTRONICS OPERATOR, MARVIN, CMADM ####[facility] Pvocnahplr3722 [place] [id number]. Garima Pulliam Chloride [Moles/Vol] 106 mmol/L Normal 98-107 [facility] Comment on above: Performed By: #### B AIR CONTROL ELECTRONICS OPERATOR, BMP, CMADM ####[facility] Hpedpqndyu3775 [place] [address]Dr. Garima Pulliam CO2 [Moles/Vol] 27.4 mmol/L Normal 21.0-32.0 The [facility] Comment on above: Performed By: #### B AIR CONTROL ELECTRONICS OPERATOR, MARVIN, CMADM ####[facility] Epkzcpebql8121 [place] [address]Dr. Garima Pulliam Creatinine [Mass/Vol] 0.65 mg/dL Critically low 0.70-1.30 [facility] Comment on above: Performed By: #### B AIR CONTROL ELECTRONICS OPERATOR, MARVIN, CMADM ####[facility] Fdijmyxcyy5789 [place] [address]Dr. Garima Pulliam EGFR-AF SOMALI >60 Normal >=60 [facility] Comment on above: Performed By: #### B AIR CONTROL ELECTRONICS OPERATOR, BMP, CMADM ####[facility] Ivlnoynpuy0449 [place] [address]Dr. Garima Pulliam EGFR-NON AF SOMALI >60 Normal >=60 [facility] Comment on above: Performed By: #### B AIR CONTROL ELECTRONICS OPERATOR, BMP, CMADM ####[facility] Jxhddajzvm9549 [place] [address]Dr. Garima Pulliam Glucose [Mass/Vol] 140 mg/dL Critically high 74-106 [facility] Comment on above: Performed By: #### B AIR CONTROL ELECTRONICS OPERATOR, BMP, CMADM ####[facility] Yevtsdwyjs0010 [place] [address]Dr. Garima Pulliam Potassium [Moles/Vol] 3.5 mmol/L Normal 3.5-5.1 [facility] Comment on above: Performed By: #### B AIR CONTROL ELECTRONICS OPERATOR, BMP, CMADM ####[facility] Ohrraustym7515 [place] [address]Dr. Garima Pulliam Sodium [Moles/Vol] 141 mmol/L Normal 136-[address] [facility] Comment on above: Performed By: #### B AIR CONTROL ELECTRONICS OPERATOR, BMP, CMADM ####[facility] Tarpmovcxy8409 [place] [address]Dr. Garima Pulliam Urea nitrogen [Mass/Vol] 8.0 mg/dL Normal 7.0-18.0 [facility] Comment on above: Performed By: #### B AIR CONTROL ELECTRONICS OPERATOR, BMP, CMADM ####[facility] Xmysyfzots6169 [place] [address]Dr. Garima Pulliam Urea nitrogen/Creatinine [Mass ratio] 12.3 mg/mg Normal [facility] Comment on above: Performed By: #### B AIR CONTROL ELECTRONICS OPERATOR, BMP, CMADM ####[facility] Babdbscwme[address] [place], [place] [address]Dr. Garima Pulliam CARDIAC NASH ADMITon 023 CK [Catalytic activity/Vol] 165 U/L Normal 39-308 [facility] Comment on above: Performed By: #### B DAVID, CMADM ####[facility] Iindqijbuf18[address] [place], [place] [address]Dr. Garima Pulliam CK.MB [Mass/Vol] 6.48 ng/mL Critically high <=3.60 [facility] Comment on above: Performed By: #### B MP, CMADM ####[facility] Papddhswex05[address] [place], [place] [address]Dr. Garima Pulliam HSTROP 11.7 pg/mL Normal 4.0-76.1 [facility] Comment on above: Result Comment: CUT- OFF POINTS HAVE BEEN ESTABLISHED BASED ON THE FOURTH UNIVERSAL DEFINITIONS OF MYOCARDIALINFARCTION. THE UPPER REFERENCE LIMIT (URL) OF TROPONIN, DEFINED THE 99TH PERCENTILE OFcTnI DISTRIBUTION IN A REFERENCE POPULATION, HAS BEEN CONFIRMED THE DECISION THRESHOLDFOR [place] DIAGNOSIS. Performed By: #### B MP, CMADM ####[facility] Ehjiripjld[address] [place], [place] [address]Dr. Garima Pulliam DORIS 83 ng/mL Normal 16-96 [facility] Comment on above: Performed By: #### B MP, CMADM ####[facility] Uljomgrrtu9686 [place] [address]Dr. Garima Pulliam CBC AUTO DIFFon 12-10-2022 BASO # 0.0 103/ul Normal 0.0-0.1 [facility] Comment on above: Performed By: #### C BC ####[facility] Uztszomkpn[address] [place], [place] [address]Dr. Garima Heraclio Basophils/100 WBC (Bld) 0.3 % Normal 0.2-2.0 [facility] Comment on above: Performed By: #### C BC ####[facility] Gemxjypump[address] [place], [place] [address]Dr. Garima Pulliam EO # 0.1 103/ul Normal 0.0-0.7 [facility] Comment on above: Performed By: #### C BC ####[facility] Ydttjteblh[address] [place], [place] [address]Dr. Garima Pulliam Eosinophils/100 WBC (Bld) 0.4 % Critically low 0.9-7.0 [facility] Comment on above: Performed By: #### C BC ####[facility] Pesrkxrtxo69[address] [place], [place] [address]Dr. Garima Pulliam Erythrocyte distribution width (RBC) [Ratio] 13.2 % Normal 11.0-15.0 [facility] Comment on above: Performed By: #### C BC ####[facility] Lztvojnjgl89[address] [place], [place] [address]Dr. Garima Pulliam Hematocrit (Bld) [Volume fraction] 42.4 % Normal 42.0-54.0 [facility] Comment on above: Performed By: #### C BC ####[facility] Eontsmrpcj5[address] [place], [place] [address]Dr. Garima Pulliam Hemoglobin (Bld) [Mass/Vol] 14.4 g/dL Normal 14.0-18.0 [facility] Comment on above: Performed By: #### C BC ####[facility] Lgiiazlfll[address] [place] [id number]. Gairma Heraclio IG # 0.05 10e3/ul Critically high 0.00-0.03 [facility] Comment on above: Performed By: #### C BC ####[facility] Fdlmbjaska64[address] [place] [address]Dr. Garima Heraclio IG % 0.4 % Normal 0.0-0.5 [facility] Comment on above: Performed By: #### C BC ####[facility] Nzttkxcidh[address] [place], [place] [address]Dr. Garima Pulliam LYMPH # 0.8 103/ul Critically low 1.2-3.8 [facility] Comment on above: Performed By: #### C BC ####[facility] Agmjgbfbjb17[address] [place], [place] [address]Dr. Chapisrenu Pulliam Lymphocytes/100 WBC (Bld) 6.5 % Critically low 20.5-60.0 [facility] Comment on above: Performed By: #### C BC ####[facility] Cvguokalco[address] [place], [place] [address]Dr. Chapisrenu Pulliam MANUAL DIFF REQ NO Normal The [facility] Comment on above: Performed By: #### C BC ####[facility] Tenldbauga[address] [place], [place] [address]DrAdalberto Garima Pulliam MCH (RBC) [Entitic mass] 30.5 pg Normal 25.9-34.0 [facility] Comment on above: Performed By: #### C BC ####[facility] Weistgnszh7[address] [place], [place] [address]DrAdalberto Garima Heraclio MCHC (RBC) [Mass/Vol] 34.0 g/dL Normal 29.9-35.2 [facility] Comment on above: Performed By: #### C BC ####[facility] Ynjcocbbil[address] [place], [place] [address]DrAdalberto Garima Heraclio MCV (RBC) [Entitic vol] 89.8 fL Normal 80.0-94.0 [facility] Comment on above: Performed By: #### C BC ####[facility] Oslgwbqdzj[address] [place], [place] [address]Dr. Garima Pulliam MONO # 0.2 103/ul Critically low 0.3-0.8 [facility] Comment on above: Performed By: #### C BC ####[facility] Ecdnqvqoqw5655 [place] [id number]. Garima Pulliam Monocytes/100 WBC (Bld) 2.0 % Normal 1.7-12.0 [facility] Comment on above: Performed By: #### C BC ####[facility] Jbzioqimlw6360 [place] [address]Dr. Chapisrenu Heraclio NEUT # 10.5 103/ul Critically high 1.4-6.5 The [facility] Comment on above: Performed By: #### C BC ####[facility] Kzebxnnuyo4[address] [place] [address]Dr. Garima Pulliam Neutrophils/100 WBC (Bld) 90.4 % Critically high 43.0-75.0 [facility] Comment on above: Performed By: #### C BC ####[facility] Qrlmirqcau6178 [place] [address]Dr. Garima Pulliam Platelet mean volume (Bld) [Entitic vol] 9.4 fL Critically low 9.5-13.5 [facility] Comment on above: Performed By: #### C BC ####[facility] Wjoodxbdya7908 [place] [address]Dr. Garima Pulliam PLT 198 103/ul Normal 150-450 [facility] Comment on above: Performed By: #### C BC ####[facility] Edlavezadv7504 [place] [address]Dr. Garima Pulliam RBC 4.72 106/ul Normal 4.70-6.10 [facility] Comment on above: Performed By: #### C BC ####[facility] Pnxexdvdvd0703 [place] [id number]. Garima Pulliam WBC 11.6 103/ul Critically high 4.0-11.0 The [facility] Comment on above: Performed By: #### C BC ####[facility] Rjlryxtmlj9891 [place] [address]DrAdalberto Pulliam PROF CHEM 8 (BAS METB)on Anion gap [Moles/Vol] 11.3 mmol/L Normal [facility] Comment on above: Performed By: #### B NANCY HERNANDEZ ####[facility] Pmddlqtvie2190 [place] [address]Dr. Garima Pulliam Calcium [Mass/Vol] 8.9 mg/dL Normal 8.5-10.[address] [facility] Comment on above: Performed By: #### B NANCY HERNANDEZ ####[facility] Evzqgrreip97[address] [place] [address]Dr. Garima Pulliam Chloride [Moles/Vol] 103 mmol/L Normal 98-107 [facility] Comment on above: Performed By: #### B NANCY HERNANDEZ ####[facility] Zwukkwyddn456[address] [place], [place] [address]Dr. Garima Pulliam CO2 [Moles/Vol] 28.2 mmol/L Normal 21.0-32.0 [facility] Comment on above: Performed By: #### NANCY Larkin MP ####[facility] Jiaajycifq7778 [place] [address]Dr. Chapisrenu Pulliam Creatinine [Mass/Vol] 0.60 mg/dL Critically low 0.70-1.30 [facility] Comment on above: Performed By: #### NANCY Larkin MP ####[facility] Xptoecbxda1694 [place] [address]Dr. Garima Pulliam EGFR-AF SOMALI >60 Normal >=60 [facility] Comment on above: Performed By: #### NANCY Larkin MP ####[facility] Bbzatzkaxa0834 [place] [address]Dr. Garmia Pulliam EGFR-NON AF SOMALI >60 Normal >=60 [facility] Comment on above: Performed By: #### NANCY Larkin MP ####[facility] Vfzfpucocq0[address] [place], [place] [address]Dr. Garima Pulliam Glucose [Mass/Vol] 166 mg/dL Critically high 74-106 [facility] Comment on above: Performed By: #### B MP, CMADM ####[facility] Awjijzimyd7189 [place] [address]Dr. Garima Pulliam Potassium [Moles/Vol] 3.5 mmol/L Normal 3.5-5.1 [facility] Comment on above: Performed By: #### B MP, CMADM ####[facility] Bnarlliptg7745 [place] [address]Dr. Garima Pulliam Sodium [Moles/Vol] 139 mmol/L Normal 136-145 [facility] Comment on above: Performed By: #### B DAVID, CMADM ####[facility] Pxclutadsq9651 [place] [address]Dr. Garima Heraclio Urea nitrogen [Mass/Vol] 9.0 mg/dL Normal 7.0-18.0 [facility] Comment on above: Performed By: #### B DAVID, NANCY ####[facility] Jgnbmrnins5[address] [place], [place] [address]Dr. Garima Heraclio Urea nitrogen/Creatinine [Mass ratio] 15.0 mg/mg Normal [facility] Comment on above: Performed By: #### B DAVID, CMAANA ROSA ####[facility] Rkubriskyu197[address] [place], [place] [address]Dr. Garima Pulliam XR CHEST 1 Von 12-10-2022 XR CHEST 1 V Normal [facility] BNPon 11-27-2022 Natriuretic peptide B (Bld) [Mass/Vol] 95.0 pg/mL Normal <=900.0 [facility] Comment on above: Performed By: #### C MP, HSTROPN, BNP ####[facility] Zidowhdaie09[address] [place], [place] [address]Dr. Garima Heraclio CBC AUTO DIFFon 11-27-2022 BASO # 0.0 103/ul Normal 0.0-0.1 [facility] Comment on above: Performed By: #### C BC ####[facility] Hfqqycdlkg64[address] [place], [place] [address]Dr. Garima Heraclio Basophils/100 WBC (Bld) 0.2 % Normal 0.2-2.0 [facility] Comment on above: Performed By: #### C BC ####[facility] Nfkpqjnuhu1027 [place] [phone]. Garima Pulliam EO # 0.2 103/ul Normal 0.0-0.7 [facility] Comment on above: Performed By: #### C BC ####[facility] Xfxqatwyzc8680 [place] [phone]. Garima Pulliam Eosinophils/100 WBC (Bld) 2.0 % Normal 0.9-7.0 [facility] Comment on above: Performed By: #### C BC ####[facility] Goxfxbrlle9769[address] [place], [place] [address]Dr. Garima Pulliam Erythrocyte distribution width (RBC) [Ratio] 13.2 % Normal 11.0-15.0 [facility] Comment on above: Performed By: #### C BC ####[facility] Gfioqcigft63[address] [place], [place] [address]Dr. Garima Pulliam Hematocrit (Bld) [Volume fraction] 42.4 % Normal 42.0-54.0 [facility] Comment on above: Performed By: #### C BC ####[facility] Rwjlxmifys35[address] [place], [place] [address]Dr. Garima Pulliam Hemoglobin (Bld) [Mass/Vol] 14.4 g/dL Normal 14.0-18.0 [facility] Comment on above: Performed By: #### C BC ####[facility] Mshqsqhpvg9[address] [place], [place] [address]Dr. Garima Pulliam IG # 0.04 10e3/ul Critically high 0.00-0.03 [facility] Comment on above: Performed By: #### C BC ####[facility] Exbigkscif9[address] [place], [place] [address]Dr. Garima Pulliam IG % 0.4 % Normal 0.0-0.5 [facility] Comment on above: Performed By: #### C BC ####[facility] Ikheysqmod[address] [place], [place] [address]Dr. Garima Pulliam LYMPH # 2.2 103/ul Normal 1.2-3.8 [facility] Comment on above: Performed By: #### C BC ####[facility] Lwedsjbmqt9023 [place] [phone]. Garima Pulliam Lymphocytes/100 WBC (Bld) 21.5 % Normal 20.5-60.0 [facility] Comment on above: Performed By: #### C BC ####[facility] Zsxfkddpxz7570 [place] [phone]. Garima Heraclio MANUAL DIFF REQ NO Normal [facility] Comment on above: Performed By: #### C BC ####[facility] Szjluoqjoa4374 [place] [phone]. Garima Heraclio MCH (RBC) [Entitic mass] 30.4 pg Normal 25.9-34.0 [facility] Comment on above: Performed By: #### C BC ####[facility] Cjivgezbaz6254 [place] [address]Dr. Garima Heraclio MCHC (RBC) [Mass/Vol] 34.0 g/dL Normal 29.9-35.2 [facility] Comment on above: Performed By: #### C BC ####[facility] Axxvftypvz6648 [place] [phone]. Garima Pulliam MCV (RBC) [Entitic vol] 89.6 fL Normal 80.0-94.0 [facility] Comment on above: Performed By: #### C BC ####[facility] Rsokggljbl7801 [place] [phone]. Garima Pulliam MONO # 0.8 103/ul Normal 0.3-0.8 [facility] Comment on above: Performed By: #### C BC ####[facility] Zquwxyiwbg9661 [place] [phone]. Chapisrenu Pulliam Monocytes/100 WBC (Bld) 7.7 % Normal 1.7-12.0 [facility] Comment on above: Performed By: #### C BC ####[facility] Hyucwdtmiy[address] [place], [place] [address]Dr. Garima Pulliam NEUT # 7.0 103/ul Critically high 1.4-6.5 [facility] Comment on above: Performed By: #### C BC ####[facility] Ftytfslnxd5415 [place] [phone]. Garima Pulliam Neutrophils/100 WBC (Bld) 68.2 % Normal 43.0-75.0 [facility] Comment on above: Performed By: #### C BC ####[facility] Tzkazzhova0587 [place] [phone]. Chapisrenu Pulliam Platelet mean volume (Bld) [Entitic vol] 8.9 fL Critically low 9.5-13.5 [facility] Comment on above: Performed By: #### C BC ####[facility] Vxccnconzl0559 [place] [address]Dr. Garima Pulliam PLT 222 103/ul Normal 150-450 [facility] Comment on above: Performed By: #### C BC ####[facility] Kisxekaqik4795 [place] [address]Dr. Garima Pulliam RBC 4.73 106/ul Normal 4.70-6.10 [facility] Comment on above: Performed By: #### C BC ####[facility] Ohmizvhwzq2599 [place] [address]Dr. Garima Pulliam WBC 10.3 103/ul Normal 4.0-11.0 [facility] Comment on above: Performed By: #### C BC ####[facility] Dlssklvbqf2728 [place] [address]Dr. Garima Pulliam PROF 14(COMP METB)on 023 Albumin [Mass/Vol] 3.7 g/dL Normal 3.4-5.[address] [facility] Comment on above: Performed By: #### C MP, HSTROPN, BNP ####[facility] Jsjpqajwlz9620 [place] [address]Dr. Chapisrenu Pulliam Albumin/Globulin [Mass ratio] 1.5 {ratio} Normal [facility] Comment on above: Performed By: #### C MP, HSTROPN, BNP ####[facility] Veeecvfhno7471 [place] [address]Dr. Garima Pulliam ALP [Catalytic activity/Vol] 79 U/L Normal 46-116 [facility] Comment on above: Performed By: #### C MP, HSTROPN, BNP ####[facility] Gcqefqyiim6358 [place] [address]Dr. Garima Pulliam ALT [Catalytic activity/Vol] 32 U/L Normal 16-63 [facility] Comment on above: Performed By: #### C MP, HSTROPN, BNP ####[facility] Difkhhvvji8516 [place] [address]Dr. Garima Pulliam Anion gap [Moles/Vol] 9.5 mmol/L Normal [facility] Comment on above: Performed By: #### C MP, HSTROPN, BNP ####[facility] Fyoaobqwek[address] [place], [place] [address]Dr. Garima Pulliam AST [Catalytic activity/Vol] 25 U/L Normal 15-37 [facility] Comment on above: Performed By: #### C MP, HSTROPN, BNP ####[facility] Lqctxssaye7[address] [place], [place] [address]Dr. Chapislan Pulliam Bilirubin [Mass/Vol] 0.4 mg/dL Normal 0.2-1.0 [facility] Comment on above: Performed By: #### C MP, HSTROPN, BNP ####[facility] Emoaddoref8[address] [place], [place] [address]Dr. Garima Pulliam Calcium [Mass/Vol] 8.9 mg/dL Normal 8.5-10.[address] [facility] Comment on above: Performed By: #### C MP, HSTROPN, BNP ####[facility] Hnkwhtbgds[address] [place], [place] [address]Dr. Chapislan Pulliam Chloride [Moles/Vol] 103 mmol/L Normal 98-107 [facility] Comment on above: Performed By: #### C MP, HSTROPN, BNP ####[facility] Cakyzsmgzx220[address] [place], [place] [address]Dr. Yilan Pulliam CO2 [Moles/Vol] 28.6 mmol/L Normal 21.0-32.0 The [facility] Comment on above: Performed By: #### C MP, HSTROPN, BNP ####[facility] Gkmeylxgdt5982 [place] [address]Dr. Garima Pulliam Creatinine [Mass/Vol] 0.72 mg/dL Normal 0.70-1.30 [facility] Comment on above: Performed By: #### C MP, HSTROPN, BNP ####[facility] Exbznknrkg0037 [place] [address]Dr. Garima Pulliam EGFR-AF SOMALI >60 Normal >=60 [facility] Comment on above: Performed By: #### C MP, HSTROPN, BNP ####[facility] Izwrrtmxno7725 [place] [address]Dr. Garima Pulliam EGFR-NON AF SOMALI >60 Normal >=60 [facility] Comment on above: Performed By: #### C MP, HSTROPN, BNP ####[facility] Qftsupdsys9453 [place] [address]Dr. Garima Pulliam Globulin (S) [Mass/Vol] 2.5 g/dL Normal [facility] Comment on above: Performed By: #### C MP, HSTROPN, BNP ####[facility] Whlnmhgjpx81[address] [place], [place] [address]Dr. Garima Pulliam Glucose [Mass/Vol] 114 mg/dL Critically high 74-106 [facility] Comment on above: Performed By: #### C MP, HSTROPN, BNP ####[facility] Vsaqnmchxk5645[address] [place], [place] [address]Dr. Garima Pulliam Potassium [Moles/Vol] 4.1 mmol/L Normal 3.5-5.1 [facility] Comment on above: Performed By: #### C MP, HSTROPN, BNP ####[facility] Ojzfgmzcgi038[address] [place], [place] [address]Dr. Garima Pulliam Protein [Mass/Vol] 6.2 g/dL Critically low 6.4-8.2 [facility] Comment on above: Performed By: #### C MP, HSTROPN, BNP ####[facility] Yemwclqkex4724[address] [place], [place] [address]Dr. Yilan Pulliam Sodium [Moles/Vol] 137 mmol/L Normal 136-145 [facility] Comment on above: Performed By: #### C MP, HSTROPN, BNP ####[facility] Ntldzhyuic5924 [place] [address]Dr. Garima Pulliam Urea nitrogen [Mass/Vol] 13.0 mg/dL Normal 7.0-18.0 [facility] Comment on above: Performed By: #### C MP, HSTROPN, BNP ####[facility] Tksvtrvhta4278 [place] [address]Dr. Garima Pulliam Urea nitrogen/Creatinine [Mass ratio] 18.1 mg/mg Normal [facility] Comment on above: Performed By: #### C MP, HSTROPN, BNP ####[facility] Rkehitiank16[address] [place], [place] [address]Dr. Garima Pulliam TROPONIN, HIGH SENSITIVITYon 11-27-2022 HSTROP 11.8 pg/mL Normal 4.0-76.1 [facility] Comment on above: Result Comment: CUT- OFF POINTS HAVE BEEN ESTABLISHED BASED ON THE FOURTH UNIVERSAL DEFINITIONS OF MYOCARDIALINFARCTION. THE UPPER REFERENCE LIMIT (URL) OF TROPONIN, DEFINED THE 99TH PERCENTILE OFcTnI DISTRIBUTION IN A REFERENCE POPULATION, HAS BEEN CONFIRMED THE DECISION THRESHOLDFOR [place] DIAGNOSIS. Performed By: #### C MP, HSTROPN, BNP ####[facility] Mvuwzphsdj6[address] [place], [place] [address]Dr. Garima Pulliam XR CHEST 1 Von 11-27-2022 XR CHEST 1 V Normal [facility] BNPon 11-20-2022 Natriuretic peptide B (Bld) [Mass/Vol] 73.0 pg/mL Normal <=900.0 [facility] Comment on above: Performed By: #### B MP, HSTROPN, BNP ####[facility] Jlvjnmdufy[address] [place], [place] [address]Dr. Garima Pulliam CBC AUTO DIFFon 11-20-2022 BASO # 0.0 103/ul Normal 0.0-0.1 [facility] Comment on above: Performed By: #### C BC ####[facility] Bhsvttjsfr2673 [place] [phone]. Garima Pulliam Basophils/100 WBC (Bld) 0.3 % Normal 0.2-2.0 [facility] Comment on above: Performed By: #### C BC ####[facility] Nezfbbqyen8242 [place] [phone]. Garima Pulliam EO # 0.2 103/ul Normal 0.0-0.7 [facility] Comment on above: Performed By: #### C BC ####[facility] Gmldbjqqjo2064 [place] [address]Dr. Garima Pulliam Eosinophils/100 WBC (Bld) 2.1 % Normal 0.9-7.0 [facility] Comment on above: Performed By: #### C BC ####[facility] Ndzpcezmgk89[address] [place], [place] [address]Dr. Garima Pulliam Erythrocyte distribution width (RBC) [Ratio] 13.2 % Normal 11.0-15.0 [facility] Comment on above: Performed By: #### C BC ####[facility] Kiggsypkoy[address] [place], [place] [address]Dr. Garima Pulliam Hematocrit (Bld) [Volume fraction] 43.4 % Normal 42.0-54.0 [facility] Comment on above: Performed By: #### C BC ####[facility] Hjynzjehyu[address] [place], [place] [address]Dr. Garima Pullima Hemoglobin (Bld) [Mass/Vol] 14.6 g/dL Normal 14.0-18.0 [facility] Comment on above: Performed By: #### C BC ####[facility] Ileelqrgtt7221 [place] [id number]. Garima Pulliam IG # 0.02 10e3/ul Normal 0.00-0.03 [facility] Comment on above: Performed By: #### C BC ####[facility] Eayeypyikx8203 [place] [address]Dr. Garima Pulliam IG % 0.2 % Normal 0.0-0.5 [facility] Comment on above: Performed By: #### C BC ####[facility] Fwvhkwpmrn0893 [place] [phone]. Garima Heraclio LYMPH # 2.1 103/ul Normal 1.2-3.8 [facility] Comment on above: Performed By: #### C BC ####[facility] Zqymbnqkhf2279 [place] [phone]. aGrima Heraclio Lymphocytes/100 WBC (Bld) 19.2 % Critically low 20.5-60.0 [facility] Comment on above: Performed By: #### C BC ####[facility] Pkarwrvats0413 [place] [phone]. Chapisrenu Pulliam MANUAL DIFF REQ NO Normal [facility] Comment on above: Performed By: #### C BC ####[facility] Stmxpblyhf3373 [place] [phone]. Garima Heraclio MCH (RBC) [Entitic mass] 30.4 pg Normal 25.9-34.0 [facility] Comment on above: Performed By: #### C BC ####[facility] Paqaknaoxl5186 [place] [address]Dr. Garima Pulliam MCHC (RBC) [Mass/Vol] 33.6 g/dL Normal 29.9-35.2 [facility] Comment on above: Performed By: #### C BC ####[facility] Ppxgordalv7731 [place] [phone]. Garima Heraclio MCV (RBC) [Entitic vol] 90.4 fL Normal 80.0-94.0 [facility] Comment on above: Performed By: #### C BC ####[facility] Uoxytobuek5195 [place] [phone]. Garima Heraclio MONO # 0.6 103/ul Normal 0.3-0.8 [facility] Comment on above: Performed By: #### C BC ####[facility] Geqllqspvv7280 [place] [address]Dr. Garima Heraclio Monocytes/100 WBC (Bld) 5.8 % Normal 1.7-12.0 [facility] Comment on above: Performed By: #### C BC ####[facility] Raukcoyzdy9482 [place], [place] [address]La. Garima Pulliam NEUT # 7.8 103/ul Critically high 1.4-6.5 [facility] Comment on above: Performed By: #### C BC ####[facility] Pvvmngtnsk6482 [place] [phone]. Garima Pulliam Neutrophils/100 WBC (Bld) 72.4 % Normal 43.0-75.0 [facility] Comment on above: Performed By: #### C BC ####[facility] Htnqjhkrbh9674 [place] [phone]. Garima Pulliam Platelet mean volume (Bld) [Entitic vol] 8.7 fL Critically low 9.5-13.5 [facility] Comment on above: Performed By: #### C BC ####[facility] Jchzhdjmei6084 [place] [phone]. Garima Pulliam PLT 184 103/ul Normal 150-450 [facility] Comment on above: Performed By: #### C BC ####[facility] Gkeghgzqna0651 [place], [place] [address]Ta. Garima Pulliam RBC 4.80 106/ul Normal 4.70-6.10 [facility] Comment on above: Performed By: #### C BC ####[facility] Zjadzuwhww1567 [place] [phone]. Garima Pulliam WBC 10.8 103/ul Normal 4.0-11.0 [facility] Comment on above: Performed By: #### C BC ####[facility] Bhhwwsphbn8416 [place] [phone]. Garima Pulliam [facility]24 SARS-CoV-2 (COVID-19) RNA MARIE+probe Ql (Unsp spec) Not detected Normal NOT DETECTED [facility] Comment on above: Result Comment: When [...] for this test is supported by the [place] of Health and Human Service's declaration that [...] be used). Performed By: #### C VDTBH ####[facility] Ahuhzsczdw04[address] [place], [place] [address]Dr. Garima Pulliam INFLUENZA A AND B AGon 11-[facility] BELOW Normal [facility] Comment on above: Result Comment: Nega tive for Flu A protein angiten. Infection due to Flu A cannot be ruled out. Flu A angiten in the sample may be below the detection limit of the test. Performed By: #### I NFLUAB ####[facility] Vjtlxkyrjk7[address] [place], [place] [address]Dr. Garima Pulliam INFLUBNEGH SEE BELOW Normal [facility] Comment on above: Result Comment: Nega tive for Flu B protein antigen. Infection due to Flu B cannot be ruled out. Flu B antigen in the sample may be below the detection limit of the test. Performed By: #### I NFLUAB ####[facility] Ijyyaynzoe93[address] [place], [place] [address]Dr. Garima Pulliam INFLUENZA A AG Negative Normal NEGATIVE SEE COMMENT [facility] Comment on above: Performed By: #### I NFLUAB ####[facility] Bukgjefanq80[address] [place], [place] [address]Dr. Garima [facility] INFLUENZA B AG Negative Normal NEGATIVE SEE COMMENT [facility] Comment on above: Performed By: #### I NFLUAB ####[facility] Xulfmxwbpb427[address] [place], [place] [address]Dr. Garima Pulliam PROF CHEM 8 (BAS METB)on Anion gap [Moles/Vol] 8.2 mmol/L Normal [facility] Comment on above: Performed By: #### B MP, HSTROPN, BNP ####[facility] Tnlrbwlbdw9484 [place] [address]Dr. Garima Pulliam Calcium [Mass/Vol] 8.7 mg/dL Normal 8.5-10.[address] [facility] Comment on above: Performed By: #### B MP, HSTROPN, BNP ####[facility] Gfzusfpdrt6805 [place] [address]Dr. Garima Pulliam Chloride [Moles/Vol] 103 mmol/L Normal 98-107 [facility] Comment on above: Performed By: #### B MP, HSTROPN, BNP ####[facility] Zoqgyeqbsg604[address] [place], [place] [address]Dr. Garima Pulliam CO2 [Moles/Vol] 29.4 mmol/L Normal 21.0-32.0 The [facility] Comment on above: Performed By: #### B MP, HSTROPN, BNP ####[facility] Tcxiiursqs03[address] [place], [place] [address]Dr. Garima Pulliam Creatinine [Mass/Vol] 0.69 mg/dL Critically low 0.70-1.30 [facility] Comment on above: Performed By: #### B MP, HSTROPN, BNP ####[facility] Egdpqyqspa2600 [place] [address]Dr. Garima Pulliam EGFR-AF SOMALI >60 Normal >=60 [facility] Comment on above: Performed By: #### B MP, HSTROPN, BNP ####[facility] Dctrfhfygb7[address] [place], [place] [address]Dr. Garima Pulliam EGFR-NON AF SOMALI >60 Normal >=60 [facility] [facility] Comment on above: Performed By: #### B MP, HSTROPN, BNP ####[facility] [address]ukjioz[address] [place] [address]Dr. Garima Pulliam Glucose [Mass/Vol] 209 mg/dL Critically high 74-106 [facility] Comment on above: Performed By: #### B MP, HSTROPN, BNP ####[facility] Ifryrrzvpn[address] [place] [address]Dr. Garima Pulliam Potassium [Moles/Vol] 3.6 mmol/L Normal 3.5-5.1 [facility] Comment on above: Performed By: #### B MP, HSTROPN, BNP ####[facility] Beoigzfwcd64[address] [place] [address]Dr. Garima Pulliam Sodium [Moles/Vol] 137 mmol/L Normal 136-145 [facility] Comment on above: Performed By: #### B MP, HSTROPN, BNP ####[facility] Ftzuqzwrtl488[address] [place] [address]Dr. Garima Pulliam Urea nitrogen [Mass/Vol] 11.0 mg/dL Normal 7.0-18.0 [facility] Comment on above: Performed By: #### B MP, HSTROPN, BNP ####[facility] Iqthzqgjui9[address] [place] [address]Dr. Garima Pulliam Urea nitrogen/Creatinine [Mass ratio] 15.9 mg/mg Normal [facility] Comment on above: Performed By: #### B MP, HSTROPN, BNP ####[facility] Clnqkxqrhi69[address] [place] [address]Dr. Garima Pulliam TROPONIN, HIGH SENSITIVITYon 11-20-2022 HSTROP 8.7 pg/mL Normal 4.0-76.1 [facility] Comment on above: Result Comment: CUT- OFF POINTS HAVE BEEN ESTABLISHED BASED ON THE FOURTH UNIVERSAL DEFINITIONS OF MYOCARDIALINFARCTION. THE UPPER REFERENCE LIMIT (URL) OF TROPONIN, DEFINED THE 99TH PERCENTILE OFcTnI DISTRIBUTION IN A REFERENCE POPULATION, HAS BEEN CONFIRMED THE DECISION THRESHOLDFOR [place] DIAGNOSIS. Performed By: #### B MP, HSTROPN, BNP ####[facility] Vxsmwezbgx[address] [place] [address]Dr. Garima Pulliam XR CHEST 1 Von 11-20-2022 XR CHEST 1 V Normal [facility] XR CHEST 1 Von 10-02-2022 XR CHEST 1 V Normal [facility] BNPon 09-29-2022 Natriuretic peptide B (Bld) [Mass/Vol] 107.0 pg/mL Normal <=900.0 [facility] Comment on above: Performed By: #### C MP, BNP, CMADM ####[facility] Vynkanwadv85[address] [place] [address]Dr. Garima Pulliam CARDIAC NASH ADMITon 022 CK [Catalytic activity/Vol] 190 U/L Normal 39-308 [facility] Comment on above: Performed By: #### C MP, BNP, CMADM ####[facility] Taozhizcnh[address] [place] [address]Dr. Garima Heraclio CK.MB [Mass/Vol] 11.11 ng/mL Critically high <=3.60 [facility] Comment on above: Performed By: #### C MP, BNP, CMADM ####[facility] Qelyfbmiux4814 [place] [address]Dr. Garima Pulliam HSTROP 11.8 pg/mL Normal 4.0-76.1 [facility] Comment on above: Result Comment: CUT- OFF POINTS HAVE BEEN ESTABLISHED BASED ON THE FOURTH UNIVERSAL DEFINITIONS OF MYOCARDIALINFARCTION. THE UPPER REFERENCE LIMIT (URL) OF TROPONIN, DEFINED THE 99TH PERCENTILE OFcTnI DISTRIBUTION IN A REFERENCE POPULATION, HAS BEEN CONFIRMED THE DECISION THRESHOLDFOR [place] DIAGNOSIS. Performed By: #### C MP, BNP, CMADM ####[facility] Mtajsyxtij14[address] [place] [address]Dr. Garima Pulliam DORIS 133 ng/mL Critically high 16-96 [facility] Comment on above: Performed By: #### C MP, BNP, CMADM ####[facility] Jufnwnxzhc1332 [place] [address]Dr. Garima Heraclio CBC AUTO DIFFon 09-29-2022 BASO # 0.0 103/ul Normal 0.0-0.1 [facility] Comment on above: Performed By: #### C BC ####[facility] Bactfgawwp6920 [place] [address]Dr. Garima Heraclio Basophils/100 WBC (Bld) 0.2 % Normal 0.2-2.0 [facility] Comment on above: Performed By: #### C BC ####[facility] Mlflitugoi0217 [place] [id number]. Garima Pulliam EO # 0.1 103/ul Normal 0.0-0.7 [facility] Comment on above: Performed By: #### C BC ####[facility] Hqnsssnrdc7952 [place] [id number]. Garima Pulliam Eosinophils/100 WBC (Bld) 1.4 % Normal 0.9-7.0 [facility] Comment on above: Performed By: #### C BC ####[facility] Lqbfdnmgol8[address] [place], [place] [address]Dr. Garima Pulliam Erythrocyte distribution width (RBC) [Ratio] 13.7 % Normal 11.0-15.0 [facility] Comment on above: Performed By: #### C BC ####[facility] Megjjavjwe[address] [place], [place] [address]Dr. Garima Pulliam Hematocrit (Bld) [Volume fraction] 45.4 % Normal 42.0-54.0 [facility] Comment on above: Performed By: #### C BC ####[facility] Leuxjdcacw[address] [place], [place] [address]Dr. Garima Pulliam Hemoglobin (Bld) [Mass/Vol] 14.8 g/dL Normal 14.0-18.0 [facility] Comment on above: Performed By: #### C BC ####[facility] Hhaqbgkqot01[address] [place], [place] [address]Dr. Garima Pulliam IG # 0.04 10e3/ul Critically high 0.00-0.03 [facility] Comment on above: Performed By: #### C BC ####[facility] Kyohcopvqu9[address] [place], [place] [address]Dr. Garima Pulliam IG % 0.5 % Normal 0.0-0.5 [facility] Comment on above: Performed By: #### C BC ####[facility] Votrxtfpqo56[address] [place], [place] [address]Dr. Garima Pulliam LYMPH # 1.1 103/ul Critically low 1.2-3.8 [facility] Comment on above: Performed By: #### C BC ####[facility] Nepuderhvn4810 [place] [id number]. Garima Pulliam Lymphocytes/100 WBC (Bld) 12.7 % Critically low 20.5-60.0 [facility] Comment on above: Performed By: #### C BC ####[facility] Evuxgxdavw1778 [place] [phone]. Chapisrenu Pulliam MANUAL DIFF REQ NO Normal [facility] Comment on above: Performed By: #### C BC ####[facility] Htkooxwx[address] [place], [place] [address]Dr. Garima Heraclio MCH (RBC) [Entitic mass] 30.0 pg Normal 25.9-34.0 [facility] Comment on above: Performed By: #### C BC ####[facility] Pxpkvfgwsq39[address] [place], [place] [address]Dr. Garima Heraclio MCHC (RBC) [Mass/Vol] 32.6 g/dL Normal 29.9-35.2 [facility] Comment on above: Performed By: #### C BC ####[facility] Tptpykberq[address] [place], [place] [address]Dr. Garima Heraclio MCV (RBC) [Entitic vol] 91.9 fL Normal 80.0-94.0 [facility] Comment on above: Performed By: #### C BC ####[facility] Vzxtaqvrwo[address] [place], [place] [address]Dr. Garima Pulliam MONO # 0.4 103/ul Normal 0.3-0.8 [facility] Comment on above: Performed By: #### C BC ####[facility] Eivjmeyfdj[address] [place], [place] [address]Dr. Chapisrenu Pulliam Monocytes/100 WBC (Bld) 4.8 % Normal 1.7-12.0 [facility] Comment on above: Performed By: #### C BC ####[facility] Vysjtjyhpg[address] [place], [place] [address]Dr. Garima Pulliam NEUT # 7.1 103/ul Critically high 1.4-6.5 [facility] Comment on above: Performed By: #### C BC ####[facility] Pxdzwjrxxe7183 [place], [place] [address]Pk. Garima Pulliam Neutrophils/100 WBC (Bld) 80.4 % Critically high 43.0-75.0 [facility] Comment on above: Performed By: #### C BC ####[facility] Hcgdthjgzu6416 [place] [id number]. Garima Pulliam Platelet mean volume (Bld) [Entitic vol] 9.1 fL Critically low 9.5-13.5 [facility] Comment on above: Performed By: #### C BC ####[facility] Rxdclnmxft8004 [place] [phone]. Garima Pulliam PLT 200 103/ul Normal 150-450 [facility] Comment on above: Performed By: #### C BC ####[facility] Gulkekdvig9527 [place] [phone]. Garima Pulliam RBC 4.94 106/ul Normal 4.70-6.10 [facility] Comment on above: Performed By: #### C BC ####[facility] Znahbegeai7498 [place] [phone]. Garima Pulliam WBC 8.9 103/ul Normal 4.0-11.0 [facility] Comment on above: Performed By: #### C BC ####[facility] Czwpjsmyws1344 [place] [phone]. Garima Pulliam Covid-19 PCR (CVDTB)on SARS-CoV-2 (COVID-19) RNA MARIE+probe Ql (Unsp spec) Not detected Normal NOT DETECTED [facility] Comment on above: Result Comment: When [...] for this test is supported by the [place] of Health and Human Service's declaration that [...] be used). Performed By: #### C VDTBH ####[facility] Cavmurfemb49[address] [place] [address]Dr. Garima Pulliam LACTATE/LACTIC ACIDon 2021 Lactate [Moles/Vol] 1.7 mmol/L Normal 0.4-1.9 [facility] Comment on above: Performed By: #### L ACT ####[facility] Peayxqfkol[address] [place], [place] [address]Dr. Garima Pulilam PROF 14(COMP METB)on 022 Albumin [Mass/Vol] 3.8 g/dL Normal 3.4-5.[address] [facility] Comment on above: Performed By: #### C MP, BNP, CMADM ####[facility] Ogwjncytne[address] [place], [place] [address]Dr. Garima Pulliam Albumin/Globulin [Mass ratio] 1.5 {ratio} Normal [facility] Comment on above: Performed By: #### C MP, BNP, CMADM ####[facility] Yfwvnjcfig8296 [place] [address]Dr. Garima Pulliam ALP [Catalytic activity/Vol] 62 U/L Normal 46-116 [facility] Comment on above: Performed By: #### C MP, BNP, CMADM ####[facility] Jnuwgohfhb0986 [place] [address]Dr. Garima Pulliam ALT [Catalytic activity/Vol] 37 U/L Normal 16-63 [facility] Comment on above: Performed By: #### C MP, BNP, CMADM ####[facility] Bsvhplwaah0788 [place] [address]Dr. Garima Pulliam Anion gap [Moles/Vol] 8.0 mmol/L Normal [facility] Comment on above: Performed By: #### C MP, BNP, CMADM ####[facility] Uhahcvfrwb6074 [place] [address]Dr. Garima Pulliam AST [Catalytic activity/Vol] 20 U/L Normal 15-37 [facility] Comment on above: Performed By: #### C MP, BNP, CMADM ####[facility] Dhhicuymjo6612 [place] [address]Dr. Garima Pulliam Bilirubin [Mass/Vol] 0.6 mg/dL Normal 0.2-1.0 [facility] Comment on above: Performed By: #### C MP, BNP, CMADM ####[facility] Hxphlvdtei0515 [place] [address]Dr. Garima Pulliam Calcium [Mass/Vol] 9.1 mg/dL Normal 8.5-10.[address] [facility] Comment on above: Performed By: #### C MP, BNP, CMADM ####[facility] Quuvhjyczl[address] [place], [place] [address]Dr. Garima Pulliam Chloride [Moles/Vol] 103 mmol/L Normal 98-107 [facility] Comment on above: Performed By: #### C MP, BNP, CMADM ####[facility] Smrhkxhtyw[address] [place], [place] [address]Dr. Garima Pulliam CO2 [Moles/Vol] 31.8 mmol/L Normal 21.0-32.0 The [facility] Comment on above: Performed By: #### C MP, BNP, CMADM ####[facility] Qelglwxyxz[address] [place], [place] [address]Dr. Garima Pulliam Creatinine [Mass/Vol] 0.63 mg/dL Critically low 0.70-1.30 [facility] Comment on above: Performed By: #### C MP, BNP, CMADM ####[facility] Hfgnwmthtp[address] [place], [place] [address]Dr. Garima Pulliam EGFR-AF SOMALI >60 Normal >=60 The [facility] Comment on above: Performed By: #### C MP, BNP, CMADM ####[facility] Lyevgkbdms[address] [place], [place] [address]Dr. Garima Pulliam EGFR-NON AF SOMALI >60 Normal >=60 [facility] Comment on above: Performed By: #### C MP, BNP, CMADM ####[facility] Hpdchoroeg8899 [place] [address]Dr. Garima Pulliam Globulin (S) [Mass/Vol] 2.6 g/dL Normal [facility] Comment on above: Performed By: #### C MP, BNP, CMADM ####[facility] Cxzzywryab6546 [place] [address]Dr. Garima Pulliam Glucose [Mass/Vol] 103 mg/dL Normal 74-106 [facility] Comment on above: Performed By: #### C MP, BNP, CMADM ####[facility] Svpzlljzac3072 [place] [address]Dr. Garima Pulliam Potassium [Moles/Vol] 3.8 mmol/L Normal 3.5-5.1 [facility] Comment on above: Performed By: #### C MP, BNP, CMADM ####[facility] Pnsckdsjyc1706 [place] [address]Dr. Garima Pulliam Protein [Mass/Vol] 6.4 g/dL Normal 6.4-8.2 [facility] Comment on above: Performed By: #### C MP, BNP, CMADM ####[facility] Itxvgfvbou0273 [place] [address]Dr. Garima Pulliam Sodium [Moles/Vol] 139 mmol/L Normal 136-145 [facility] Comment on above: Performed By: #### C MP, BNP, CMADM ####[facility] Pirddfnmod8988 [place] [address]Dr. Garima Pulliam Urea nitrogen [Mass/Vol] 7.0 mg/dL Normal 7.0-18.0 [facility] Comment on above: Performed By: #### C MP, BNP, CMADM ####[facility] Hkxrzmtgbf1616 [place] [address]Dr. Garima Pulliam Urea nitrogen/Creatinine [Mass ratio] 11.1 mg/mg Normal [facility] Comment on above: Performed By: #### C MP, BNP, CMADM ####[facility] Sjlbolpuli6486 [place] [address]Dr. Garima Pulliam PROTIMEon 09-29-2022 INR Coag (PPP) [Relative time] 1.14 {INR} Normal [facility] Comment on above: Performed By: #### P T, PTT ####[facility] Amowjocdro92[address] [place], [place] [address]Dr. Garima Pulliam INR GUIDELINES SEE BELOW Normal [facility] Comment on above: Result Comment: WESLEY RED INR: 2.0 - 3.0 CONDITIONS NOT LISTED BELOW 2.5 - 3.5 FOR PROSTHETIC HEART VALVE REPLACEMENT 2.5 - 3.5 RECURRENT THROMBOSIS Performed By: #### P T, PTT ####[facility] Xcalnyxphm[address] [place], [place] [address]Dr. Garima Pulliam PT Coag (PPP) [Time] 12.2 s Critically high 9.0-11.6 [facility] Comment on above: Performed By: #### P T, PTT ####[facility] Coqeecoyds[address] [place], [place] [address]Dr. Garima Pulliam PTTon 09-29-2022 aPTT Coag (Bld) [Time] 29.3 s Normal 22.3-36.2 [facility] Comment on above: Performed By: #### P T, PTT ####[facility] Rqbsrnzpgp[address] [place], [place] [address]Dr. Garima Pulliam XR CHEST 1 Von 09-29-2022 XR CHEST 1 V Normal [facility] CBC AUTO DIFFon 09-26-2022 BASO # 0.0 103/ul Normal 0.0-0.1 [facility] Comment on above: Performed By: #### C BC ####[facility] Hmuxpxhvgu[address] [place], [place] [address]Dr. Garima Pulliam Basophils/100 WBC (Bld) 0.2 % Normal 0.2-2.0 [facility] Comment on above: Performed By: #### C BC ####[facility] Idkyiakngf[address] [place], [place] [address]Dr. Garima Pulliam EO # 0.1 103/ul Normal 0.0-0.7 [facility] Comment on above: Performed By: #### C BC ####[facility] Kkmwvvpwfj608[address] [place], [place] [address]Dr. Garima Pulliam Eosinophils/100 WBC (Bld) 1.0 % Normal 0.9-7.0 [facility] Comment on above: Performed By: #### C BC ####[facility] Yubfpffasu[address] [place], [place] [address]Dr. Garima Pulliam Erythrocyte distribution width (RBC) [Ratio] 13.4 % Normal 11.0-15.0 [facility] Comment on above: Performed By: #### C BC ####[facility] Bfwejcjslc[address] [place], [place] [address]Dr. Garima Pulliam Hematocrit (Bld) [Volume fraction] 46.3 % Normal 42.0-54.0 [facility] Comment on above: Performed By: #### C BC ####[facility] Kbvuraabci9433[address] [place], [place] [address]Dr. Garima Pulliam Hemoglobin (Bld) [Mass/Vol] 15.3 g/dL Normal 14.0-18.0 [facility] Comment on above: Performed By: #### C BC ####[facility] Pyjuaqmjok7[address] [place], [place] [address]Dr. Garima Pulliam IG # 0.05 10e3/ul Critically high 0.00-0.03 [facility] Comment on above: Performed By: #### C BC ####[facility] Pibcwnbvrg646[address] [place], [place] [address]Dr. Garima Pulliam IG % 0.4 % Normal 0.0-0.5 [facility] Comment on above: Performed By: #### C BC ####[facility] Aeydwwyjez97[address] [place], [place] [address]Dr. Garima Pulliam LYMPH # 1.7 103/ul Normal 1.2-3.8 [facility] Comment on above: Performed By: #### C BC ####[facility] Cqhgaqsblw[address] [place], [place] [address]Dr. Garima Pulliam Lymphocytes/100 WBC (Bld) 12.7 % Critically low 20.5-60.0 [facility] Comment on above: Performed By: #### C BC ####[facility] Gdlqomieep3247 [place] [address]DrAdalberto Pulliam MANUAL DIFF REQ NO Normal [facility] Comment on above: Performed By: #### C BC ####[facility] Rzhwretflh4788 [place] [address]Dr. Garima Pulliam MCH (RBC) [Entitic mass] 30.1 pg Normal 25.9-34.0 [facility] Comment on above: Performed By: #### C BC ####[facility] Naeznlyvif44[address] [place], [place] [address]Dr. Garima Pulliam MCHC (RBC) [Mass/Vol] 33.0 g/dL Normal 29.9-35.2 [facility] Comment on above: Performed By: #### C BC ####[facility] Lamfhzmrda64[address] [place], [place] [address]DrAdalberto Pulliam MCV (RBC) [Entitic vol] 91.1 fL Normal 80.0-94.0 [facility] Comment on above: Performed By: #### C BC ####[facility] Uqhwxkwyuf[address] [place], [place] [address]DrAdalberto Pulliam MONO # 0.9 103/ul Critically high 0.3-0.8 [facility] Comment on above: Performed By: #### C BC ####[facility] Kqzyzexyre[address] [place], [place] [address]DrAdalberto Pulliam Monocytes/100 WBC (Bld) 7.0 % Normal 1.7-12.0 [facility] Comment on above: Performed By: #### C BC ####[facility] Bygbnoknaa[address] [place], [place] [address]DrAdalberto Pulliam NEUT # 10.4 103/ul Critically high 1.4-6.5 The [facility] Comment on above: Performed By: #### C BC ####[facility] Eazmgglsce6[address] [place], [place] [address]DrAdalberto Pulliam Neutrophils/100 WBC (Bld) 78.7 % Critically high 43.0-75.0 [facility] Comment on above: Performed By: #### C BC ####[facility] Oqvrbicopu8389 [place] [address]Dr. Garima Pulliam Platelet mean volume (Bld) [Entitic vol] 8.9 fL Critically low 9.5-13.5 [facility] Comment on above: Performed By: #### C BC ####[facility] Bhiuhvyxve3714 [place] [address]Dr. Garima Pulliam PLT 195 103/ul Normal 150-450 [facility] Comment on above: Performed By: #### C BC ####[facility] Wzdpibiygt9[address] [place], [place] [address]Dr. Garima Pulliam RBC 5.08 106/ul Normal 4.70-6.10 [facility] Comment on above: Performed By: #### C BC ####[facility] Fknfgybypx[address] [place], [place] [address]Dr. Garima Pulliam WBC 13.2 103/ul Critically high 4.0-11.0 The [facility] Comment on above: Performed By: #### C BC ####[facility] Aqkvrkpbzy[address] [place], [place] [address]Dr. Garima Pulliam PROF 14(COMP METB)on 022 Albumin [Mass/Vol] 3.5 g/dL Normal 3.4-5.[address] [facility] Comment on above: Performed By: #### C DAVID HSTROPN ####[facility] Ndwbqerigw9030 [place] [address]Dr. Garima Pulliam Albumin/Globulin [Mass ratio] 1.2 {ratio} Normal [facility] Comment on above: Performed By: #### C RAFAT HERNANDEZTROPN ####[facility] Yjnctpqquk0804 [place] [address]Dr. Garima Pulliam ALP [Catalytic activity/Vol] 71 U/L Normal 46-116 [facility] Comment on above: Performed By: #### C DAVID HSTROPN ####[facility] Ffrmcgnzza2752 [place] [address]Dr. Garima Pulliam ALT [Catalytic activity/Vol] 37 U/L Normal 16-63 [facility] Comment on above: Performed By: #### C DAVID, HSTROPN ####[facility] Qiokxmhmnn6996 [place] [address]Dr. Garima Pulliam Anion gap [Moles/Vol] 4.8 mmol/L Normal [facility] Comment on above: Performed By: #### C DAIVD, HSTROPN ####[facility] Xazmrxecgq[address] [place], [place] [address]Dr. Garima Pulliam AST [Catalytic activity/Vol] 21 U/L Normal 15-37 [facility] Comment on above: Performed By: #### C DAVID, HSTROPN ####[facility] Qaafeieanb[address] [place], [place] [address]Dr. Garima Pulliam Bilirubin [Mass/Vol] 0.3 mg/dL Normal 0.2-1.0 [facility] Comment on above: Performed By: #### C DAVID, HSTROPN ####[facility] Kpeoyaekhr28[address] [place] [address]Dr. Garima Pulliam Calcium [Mass/Vol] 8.9 mg/dL Normal 8.5-10.[address] [facility] Comment on above: Performed By: #### C DAVID, HSTROPN ####[facility] Nesohqvorq0436 [place] [address]Dr. Garima Pulliam Chloride [Moles/Vol] 106 mmol/L Normal 98-107 [facility] Comment on above: Performed By: #### C DAVID, HSTROPN ####[facility] Hdpudvruzf0742 [place] [address]Dr. Garima Pulliam CO2 [Moles/Vol] 29.8 mmol/L Normal 21.0-32.0 The [facility] Comment on above: Performed By: #### C DAVID, HSTROPN ####[facility] Pvrtrgvaxp3120 [place] [address]Dr. Garima Pulliam Creatinine [Mass/Vol] 0.68 mg/dL Critically low 0.70-1.30 [facility] Comment on above: Performed By: #### C MP, HSTROPN ####[facility] Ucicktepad99[address] [place] [address]Dr. Garima Pulliam EGFR-AF SOMALI >60 Normal >=60 [facility] Comment on above: Performed By: #### C MP, HSTROPN ####[facility] Efaloahjjh27[address] [place] [address]Dr. Chapislan Pulliam EGFR-NON AF SOMALI >60 Normal >=60 [facility] Comment on above: Performed By: #### C MP, HSTROPN ####[facility] Ttdtxroxyn9508 [place] [address]Dr. Garima Pulliam Globulin (S) [Mass/Vol] 2.8 g/dL Normal [facility] Comment on above: Performed By: #### C MP, HSTROPN ####[facility] Znyenmisfe7330 [place] [address]Dr. Garima Pulliam Glucose [Mass/Vol] 133 mg/dL Critically high 74-106 [facility] Comment on above: Performed By: #### C MP, HSTROPN ####[facility] Ceqfjwhbfg2786 [place] [address]Dr. Chapisrenu Pulliam Potassium [Moles/Vol] 3.6 mmol/L Normal 3.5-5.1 [facility] Comment on above: Performed By: #### C MP, HSTROPN ####[facility] Rlgtwskdxx8000 [place] [address]Dr. Chapisrenu Pulliam Protein [Mass/Vol] 6.3 g/dL Critically low 6.4-8.2 [facility] Comment on above: Performed By: #### C MP, HSTROPN ####[facility] Bjjnibxfra[address] [place], [place] [address]Dr. Chapisrenu Pulliam Sodium [Moles/Vol] 137 mmol/L Normal 136-[address] [facility] Comment on above: Performed By: #### C MP, HSTROPN ####[facility] Mavtckuhaz[address] [place], [place] [address]Dr. Garima Pulliam Urea nitrogen [Mass/Vol] 15.0 mg/dL Normal 7.0-18.0 [facility] Comment on above: Performed By: #### C DAVID HSTROPN ####[facility] Wixfrdbwhr4824 [place] [address]Dr. Chapisrenu Pulliam Urea nitrogen/Creatinine [Mass ratio] 22.1 mg/mg Normal [facility] Comment on above: Performed By: #### C DAVID HSTROPN ####[facility] Vgrqoyaziy[address] [place] [address]Dr. Garima Heraclio TROPONIN, HIGH SENSITIVITYon 09-26-2022 HSTROP 12.8 pg/mL Normal 4.0-76.1 [facility] Comment on above: Result Comment: CUT- OFF POINTS HAVE BEEN ESTABLISHED BASED ON THE FOURTH UNIVERSAL DEFINITIONS OF MYOCARDIALINFARCTION. THE UPPER REFERENCE LIMIT (URL) OF TROPONIN, DEFINED THE 99TH PERCENTILE OFcTnI DISTRIBUTION IN A REFERENCE POPULATION, HAS BEEN CONFIRMED THE DECISION THRESHOLDFOR [place] DIAGNOSIS. Performed By: #### C DAVID HSTROPN ####[facility] Uxjwpaysvz0327 [place] [address]Dr. Chapisrenu Pulliam XR CHEST 1 Von 09-26-2022 XR CHEST 1 V Normal [facility] XR CHEST 1 Von 09-16-2022 XR CHEST 1 V Normal [facility] CBC AUTO DIFFon 09-15-2022 BASO # 0.0 103/ul Normal 0.0-0.1 [facility] Comment on above: Performed By: #### C BC ####[facility] Bezjjjyocs2163 [place] [address]Dr. Garima Heraclio Basophils/100 WBC (Bld) 0.1 % Critically low 0.2-2.0 [facility] Comment on above: Performed By: #### C BC ####[facility] Epaxpncqje8334 [place] [address]Dr. Garima Pulliam EO # 0.0 103/ul Normal 0.0-0.7 [facility] Comment on above: Performed By: #### C BC ####[facility] Olzyneikzv9436 [place] [address]Dr. Garima Pulliam Eosinophils/100 WBC (Bld) 0.1 % Critically low 0.9-7.0 [facility] Comment on above: Performed By: #### C BC ####[facility] Wtiijmvecr1166 [place] [address]Dr. Garima Pulliam Erythrocyte distribution width (RBC) [Ratio] 14.1 % Normal 11.0-15.0 [facility] Comment on above: Performed By: #### C BC ####[facility] Denwqauzpu[address] [place], [place] [address]Dr. Garima Pulliam Hematocrit (Bld) [Volume fraction] 46.1 % Normal 42.0-54.0 [facility] Comment on above: Performed By: #### C BC ####[facility] Jttthufkqv[address] [place], [place] [address]Dr. Garima Pulliam Hemoglobin (Bld) [Mass/Vol] 15.0 g/dL Normal 14.0-18.0 [facility] Comment on above: Performed By: #### C BC ####[facility] Nhrezlpkzr[address] [place], [place] [address]Dr. Garima Pulliam IG # 0.03 10e3/ul Normal 0.00-0.03 [facility] Comment on above: Performed By: #### C BC ####[facility] Uoytpspxbr[address] [place], [place] [address]Dr. Garima Pulliam IG % 0.3 % Normal 0.0-0.5 [facility] Comment on above: Performed By: #### C BC ####[facility] Qcuhyszbws85[address] [place], [place] [address]Dr. Garima Pulliam LYMPH # 0.6 103/ul Critically low 1.2-3.8 [facility] Comment on above: Performed By: #### C BC ####[facility] Lvsypuxrwr7[address] [place], [place] [address]Dr. Garima Pulliam Lymphocytes/100 WBC (Bld) 5.8 % Critically low 20.5-60.0 [facility] Comment on above: Performed By: #### C BC ####[facility] Rugjcqhxph6750 [place] [id number]. Garima Pulliam MANUAL DIFF REQ NO Normal [facility] Comment on above: Performed By: #### C BC ####[facility] Xnfriycfwf9264 [place] [id number]. Garima Pulliam MCH (RBC) [Entitic mass] 30.2 pg Normal 25.9-34.0 [facility] Comment on above: Performed By: #### C BC ####[facility] Dmipcywbuo9[address] [place] [address]Dr. Garima Pulliam MCHC (RBC) [Mass/Vol] 32.5 g/dL Normal 29.9-35.2 [facility] Comment on above: Performed By: #### C BC ####[facility] Lhouuqchgo[address] [place] [address]Dr. Garima Pulliam MCV (RBC) [Entitic vol] 92.8 fL Normal 80.0-94.0 [facility] Comment on above: Performed By: #### C BC ####[facility] Zxweoigifq4213 [place] [address]Dr. Garima Heraclio MONO # 0.3 103/ul Normal 0.3-0.8 [facility] Comment on above: Performed By: #### C BC ####[facility] Ocqgcuaope8860 [place] [id number]. Garima Heraclio Monocytes/100 WBC (Bld) 3.2 % Normal 1.7-12.0 [facility] Comment on above: Performed By: #### C BC ####[facility] Jrstethyhc4068 [place] [phone]. Garima Pulliam NEUT # 9.8 103/ul Critically high 1.4-6.5 [facility] Comment on above: Performed By: #### C BC ####[facility] Whitudeqcc3273 [place] [phone]. Garima Pulliam Neutrophils/100 WBC (Bld) 90.5 % Critically high 43.0-75.0 [facility] Comment on above: Performed By: #### C BC ####[facility] Kvrrsokcnc3770 [place] [phone]. Garima Pulliam Platelet mean volume (Bld) [Entitic vol] 9.4 fL Critically low 9.5-13.5 [facility] Comment on above: Performed By: #### C BC ####[facility] Qaslvssqhf4524 [place] [phone]. Garima Pulliam PLT 208 103/ul Normal 150-450 [facility] Comment on above: Performed By: #### C BC ####[facility] Scpvxwhlri7455 [place] [address]Dr. Garima Pulliam RBC 4.97 106/ul Normal 4.70-6.10 [facility] Comment on above: Performed By: #### C BC ####[facility] Ujmrcxphdh7137 [place] [address]Dr. Garima Pulliam WBC 10.8 103/ul Normal 4.0-11.0 [facility] Comment on above: Performed By: #### C BC ####[facility] Aoheejfujd1210 [place] [address]Dr. Garima Pulliam PROF 14(COMP METB)on 022 Albumin [Mass/Vol] 4.0 g/dL Normal 3.4-5.[address] [facility] Comment on above: Performed By: #### C MP ####[facility] Bwuefdfpij8005 [place] [address]Dr. Garima Pulliam Albumin/Globulin [Mass ratio] 1.5 {ratio} Normal [facility] Comment on above: Performed By: #### C MP ####[facility] Mrmhcstanj4888 [place] [address]Dr. Garima Pulliam ALP [Catalytic activity/Vol] 73 U/L Normal 46-116 [facility] Comment on above: Performed By: #### C MP ####[facility] Guxxakqiiy3147 [place] [address]Dr. Garima Pulliam ALT [Catalytic activity/Vol] 42 U/L Normal 16-63 [facility] Comment on above: Performed By: #### C MP ####[facility] Jknofhsceg8258 [place] [address]Dr. Garima Pulliam Anion gap [Moles/Vol] 9.1 mmol/L Normal [facility] Comment on above: Performed By: #### C MP ####[facility] Rwmbgdrvnu32[address] [place], [place] [address]Dr. Garima Pulliam AST [Catalytic activity/Vol] 28 U/L Normal 15-37 [facility] Comment on above: Performed By: #### C MP ####[facility] Kttuvpsvnh45[address] [place], [place] [address]Dr. Garima Pulliam Bilirubin [Mass/Vol] 0.6 mg/dL Normal 0.2-1.0 [facility] Comment on above: Performed By: #### C MP ####[facility] Wrqqjypbrk76[address] [place], [place] [address]Dr. Garima Pulliam Calcium [Mass/Vol] 8.6 mg/dL Normal 8.5-10.1 [facility] Comment on above: Performed By: #### C MP ####[facility] Xvmuydwgyv8[address] [place], [place] [address]Dr. Garima Pulliam Chloride [Moles/Vol] 105 mmol/L Normal 98-107 [facility] Comment on above: Performed By: #### C MP ####[facility] Juwmjxzgij1788[address] [place], [place] [address]Dr. Garima Pulliam CO2 [Moles/Vol] 28.5 mmol/L Normal 21.0-32.0 The [facility] Comment on above: Performed By: #### C MP ####[facility] Ubvydrfxcd2737[address] [place], [place] [address]Dr. Garima Heraclio Creatinine [Mass/Vol] 0.78 mg/dL Normal 0.70-1.30 [facility] Comment on above: Performed By: #### C MP ####[facility] Pqepumbxae[address] [place], [place] [address]Dr. Chapisrenu Heraclio EGFR-AF SOMALI >60 Normal >=60 The [facility] Comment on above: Performed By: #### C MP ####[facility] Dukaehxnwc1898[address] [place], [place] [address]Dr. Garima Pulliam EGFR-NON AF SOMALI >60 Normal >=60 [facility] Comment on above: Performed By: #### C MP ####[facility] Eapunhvzpq7852 [place] [address]Dr. Garima Pulliam Globulin (S) [Mass/Vol] 2.7 g/dL Normal [facility] Comment on above: Performed By: #### C MP ####[facility] Ebinidvmvb2604 [place] [address]Dr. Garima Pulliam Glucose [Mass/Vol] 220 mg/dL Critically high 74-106 [facility] Comment on above: Performed By: #### C MP ####[facility] Xscczzamua4040 [place] [address]Dr. Garima Pulliam Potassium [Moles/Vol] 3.6 mmol/L Normal 3.5-5.1 [facility] Comment on above: Performed By: #### C MP ####[facility] Djyqauhhut978[address] [place], [place] [address]Dr. Garima Pulliam Protein [Mass/Vol] 6.7 g/dL Normal 6.4-8.[address] [facility] Comment on above: Performed By: #### C MP ####[facility] Isxvykglra287[address] [place], [place] [address]Dr. Garima Pulliam Sodium [Moles/Vol] 139 mmol/L Normal 136-[address] [facility] Comment on above: Performed By: #### C MP ####[facility] Rvdxseawxf9[address] [place], [place] [address]Dr. Garima Pulliam Urea nitrogen [Mass/Vol] 11.0 mg/dL Normal 7.0-18.0 [facility] Comment on above: Performed By: #### C MP ####[facility] Xpfxsvwbkr11[address] [place], [place] [address]Dr. Garima Pulliam Urea nitrogen/Creatinine [Mass ratio] 14.1 mg/mg Normal [facility] Comment on above: Performed By: #### C MP ####[facility] Pmcmwlyncm2830[address] [place], [place] [address]Dr. Garima Pulliam CARDIAC NASH 3-6on 2 CK [Catalytic activity/Vol] 240 U/L Normal 39-308 [facility] Comment on above: Performed By: #### C MREP ####[facility] Micxhyokot0196 [place] [address]Dr. Garima Pulliam CK.MB [Mass/Vol] 10.38 ng/mL Critically high <=3.60 [facility] Comment on above: Performed By: #### C MREP ####[facility] Kifljiynzl8302 [place] [address]Dr. Garima Pulliam HSTROP 18.5 pg/mL Normal 4.0-76.1 [facility] Comment on above: Result Comment: CUT- OFF POINTS HAVE BEEN ESTABLISHED BASED ON THE FOURTH UNIVERSAL DEFINITIONS OF MYOCARDIALINFARCTION. THE UPPER REFERENCE LIMIT (URL) OF TROPONIN, DEFINED THE 99TH PERCENTILE OFcTnI DISTRIBUTION IN A REFERENCE POPULATION, HAS BEEN CONFIRMED THE DECISION THRESHOLDFOR [place] DIAGNOSIS. Performed By: #### C MREP ####[facility] Qfmopdlnon9404 [place] [address]Dr. Garima Pulliam CK [Catalytic activity/Vol] 257 U/L Normal 39-308 [facility] Comment on above: Performed By: #### C MREP ####[facility] Tgicmcwlxx78[address] [place], [place] [address]Dr. Garima Pulliam CK.MB [Mass/Vol] 9.89 ng/mL Critically high <=3.60 [facility] Comment on above: Performed By: #### C MREP ####[facility] Edkkhdefuh35[address] [place], [place] [address]Dr. Garima Pulliam HSTROP 16.9 pg/mL Normal 4.0-76.1 [facility] Comment on above: Result Comment: CUT- OFF POINTS HAVE BEEN ESTABLISHED BASED ON THE FOURTH UNIVERSAL DEFINITIONS OF MYOCARDIALINFARCTION. THE UPPER REFERENCE LIMIT (URL) OF TROPONIN, DEFINED THE 99TH PERCENTILE OFcTnI DISTRIBUTION IN A REFERENCE POPULATION, HAS BEEN CONFIRMED THE DECISION THRESHOLDFOR [place] DIAGNOSIS. Performed By: #### C MREP ####[facility] Crkndrizan6588 [place] [address]Dr. Garima Heraclio CBC AUTO DIFFon 10-22-2022 BASO # 0.0 103/ul Normal 0.0-0.1 [facility] Comment on above: Performed By: #### C BC ####[facility] Yktfqcsdqu0904 [place] [id number]. Garima Pulliam Basophils/100 WBC (Bld) 0.1 % Critically low 0.2-2.0 [facility] Comment on above: Performed By: #### C BC ####[facility] Gbhisjhwbo8929 [place] [address]Dr. Garima Pulliam EO # 0.0 103/ul Normal 0.0-0.7 [facility] Comment on above: Performed By: #### C BC ####[facility] Njetolhsfl65[address] [place], [place] [address]Dr. Chapisrenu Heraclio Eosinophils/100 WBC (Bld) 0.0 % Critically low 0.9-7.0 [facility] Comment on above: Performed By: #### C BC ####[facility] Ukspmnyass9[address] [place], [place] [address]Dr. Garima Pulliam Erythrocyte distribution width (RBC) [Ratio] 13.6 % Normal 11.0-15.0 [facility] Comment on above: Performed By: #### C BC ####[facility] Sjnqsttwvf5747[address] [place], [place] [address]Dr. Garima Pulliam Hematocrit (Bld) [Volume fraction] 48.2 % Normal 42.0-54.0 [facility] Comment on above: Performed By: #### C BC ####[facility] Ohouryosmv8813[address] [place], [place] [address]Dr. Garima Pulliam Hemoglobin (Bld) [Mass/Vol] 16.0 g/dL Normal 14.0-18.0 [facility] Comment on above: Performed By: #### C BC ####[facility] Ugwajwpokm389[address] [place], [place] [address]Dr. Chapisrenu Heraclio IG # 0.02 10e3/ul Normal 0.00-0.03 [facility] Comment on above: Performed By: #### C BC ####[facility] Khkclciswc9332 [place] [id number]. Garima Pulliam IG % 0.3 % Normal 0.0-0.5 [facility] Comment on above: Performed By: #### C BC ####[facility] Zzungnlhfp3671 [place] [address]Dr. Garima Heraclio LYMPH # 0.5 103/ul Critically low 1.2-3.8 [facility] Comment on above: Performed By: #### C BC ####[facility] Acsraoouyd1579 [place] [address]Dr. Garima Heraclio Lymphocytes/100 WBC (Bld) 7.7 % Critically low 20.5-60.0 [facility] Comment on above: Performed By: #### C BC ####[facility] Wunxujpxkp647[address] [place], [place] [address]Dr. Chapisrenu Pulliam MANUAL DIFF REQ NO Normal [facility] Comment on above: Performed By: #### C BC ####[facility] Ypunmmmebb990[address] [place], [place] [address]Dr. Garima Heraclio MCH (RBC) [Entitic mass] 30.6 pg Normal 25.9-34.0 [facility] Comment on above: Performed By: #### C BC ####[facility] Qqpjcqeowj137[address] [place], [place] [address]Dr. Garima Pulliam MCHC (RBC) [Mass/Vol] 33.2 g/dL Normal 29.9-35.2 [facility] Comment on above: Performed By: #### C BC ####[facility] Exzkejshql4[address] [place], [place] [address]Dr. Garima Heraclio MCV (RBC) [Entitic vol] 92.2 fL Normal 80.0-94.0 [facility] Comment on above: Performed By: #### C BC ####[facility] Befgcyrufs23[address] [place], [place] [address]Dr. Garima Pulliam MONO # 0.0 103/ul Critically low 0.3-0.8 [facility] Comment on above: Performed By: #### C BC ####[facility] Egwrkjvdls7232 [place] [phone]. Garima Pulliam Monocytes/100 WBC (Bld) 0.4 % Critically low 1.7-12.0 [facility] Comment on above: Performed By: #### C BC ####[facility] Ohwtxyszro0341 [place] [phone]. Garima Pulliam NEUT # 6.2 103/ul Normal 1.4-6.5 [facility] Comment on above: Performed By: #### C BC ####[facility] Yvrhamnhle9835 [place] [address]Dr. Garima Pulliam Neutrophils/100 WBC (Bld) 91.5 % Critically high 43.0-75.0 [facility] Comment on above: Performed By: #### C BC ####[facility] Vzerejrztq7349 [place] [address]Dr. Garima Pulliam Platelet mean volume (Bld) [Entitic vol] 8.7 fL Critically low 9.5-13.5 [facility] Comment on above: Performed By: #### C BC ####[facility] Iovelfpphl3609 [place] [address]Dr. Garima Pulliam PLT 179 103/ul Normal 150-450 [facility] Comment on above: Performed By: #### C BC ####[facility] Ugbuacuuob8144 [place] [id number]. Garima Pulliam RBC 5.23 106/ul Normal 4.70-6.10 [facility] Comment on above: Performed By: #### C BC ####[facility] Rkdsuwkdvy5839 [place] [address]Dr. Garima Pulliam WBC 6.7 103/ul Normal 4.0-11.0 [facility] Comment on above: Performed By: #### C BC ####[facility] Imlhvnayxz5632 [place] [address]Dr. Garima Pulliam PROF CHEM 8 (BAS METB)on Anion gap [Moles/Vol] 12.1 mmol/L Normal [facility] Comment on above: Performed By: #### B MP ####[facility] Tgxwqlfgbl5983 [place] [phone]. Garima Pulliam Calcium [Mass/Vol] 8.7 mg/dL Normal 8.5-10.1 [facility] Comment on above: Performed By: #### B MP ####[facility] Pdvnvokcol7800 [place] [phone]. Garima Pulliam Chloride [Moles/Vol] 105 mmol/L Normal 98-107 [facility] Comment on above: Performed By: #### B MP ####[facility] Rtgtfkymmd0243 [place] [phone]. Garima Pulliam CO2 [Moles/Vol] 25.5 mmol/L Normal 21.0-32.0 The [facility] Comment on above: Performed By: #### B MP ####[facility] Loiruofyhi7959 [place] [address]Dr. Garima Pulliam Creatinine [Mass/Vol] 0.63 mg/dL Critically low 0.70-1.30 [facility] Comment on above: Performed By: #### B MP ####[facility] Azxpcrxplj4221 [place] [address]Dr. Garima Pulliam EGFR-AF SOMALI >60 Normal >=60 The [facility] Comment on above: Performed By: #### B MP ####[facility] Pbtrdtmofq0607 [place] [address]Dr. Garima Pulliam EGFR-NON AF SOMALI >60 Normal >=60 [facility] Comment on above: Performed By: #### B MP ####[facility] Kllifqycah2352 [place] [address]Dr. Garima Pulliam Glucose [Mass/Vol] 162 mg/dL Critically high 74-106 [facility] Comment on above: Performed By: #### B MP ####[facility] Fecszkhzmp06[address] [place], [place] [address]Dr. Garima Pulliam Potassium [Moles/Vol] 3.6 mmol/L Normal 3.5-5.1 [facility] Comment on above: Performed By: #### B MP ####[facility] Dqxctcufyc34[address] [place], [place] [address]Dr. Garima Pulliam Sodium [Moles/Vol] 139 mmol/L Normal 136-[address] [facility] Comment on above: Performed By: #### B DAVID ####[facility] Qpnzqmhqot4031 [place] [address]Dr. Garima Pulliam Urea nitrogen [Mass/Vol] 9.0 mg/dL Normal 7.0-18.0 [facility] Comment on above: Performed By: #### B DAVID ####[facility] Idfgahmpkf2560 [place] [address]Dr. Garima Pulliam Urea nitrogen/Creatinine [Mass ratio] 14.3 mg/mg Normal [facility] Comment on above: Performed By: #### B DAVID ####[facility] Zauvtotdem1498 [place] [address]Dr. Chapisrenu Pulliam CARDIAC NASH ADMITon 09-12- 022 CK [Catalytic activity/Vol] 304 U/L Normal 39-308 [facility] Comment on above: Performed By: #### B NANCY HERNANDEZ ####[facility] Iduckeeitw1812 [place] [address]Dr. Garima Pulliam CK.MB [Mass/Vol] 11.81 ng/mL Critically high <=3.60 [facility] Comment on above: Performed By: #### B NANCY HERNANDEZ ####[facility] Ologzzkqut2003 [place] [address]Dr. Garima Heraclio HSTROP 13.3 pg/mL Normal 4.0-76.1 [facility] Comment on above: Result Comment: CUT- OFF POINTS HAVE BEEN ESTABLISHED BASED ON THE FOURTH UNIVERSAL DEFINITIONS OF MYOCARDIALINFARCTION. THE UPPER REFERENCE LIMIT (URL) OF TROPONIN, DEFINED THE 99TH PERCENTILE OFcTnI DISTRIBUTION IN A REFERENCE POPULATION, HAS BEEN CONFIRMED THE DECISION THRESHOLDFOR [place] DIAGNOSIS. Performed By: #### B NANCY HERNANDEZ ####[facility] Wbnwtykysv7946 [place] [address]Dr. Garima Pulliam DORIS 133 ng/mL Critically high 16-96 [facility] Comment on above: Performed By: #### B NANCY HERNANDEZ ####[facility] Yhsdicxlci4533 [place] [address]Dr. Garima Pulliam CBC AUTO DIFFon 09-12-2022 BASO # 0.0 103/ul Normal 0.0-0.1 [facility] Comment on above: Performed By: #### C BC ####[facility] Lwowihourr[address] [place], [place] [address]Dr. Garima Heraclio Basophils/100 WBC (Bld) 0.2 % Normal 0.2-2.0 [facility] Comment on above: Performed By: #### C BC ####[facility] Chxvhrcjtl312[address] [place], [place] [address]Dr. Garima Heraclio EO # 0.2 103/ul Normal 0.0-0.7 [facility] Comment on above: Performed By: #### C BC ####[facility] Dqtmuddpvr24[address] [place], [place] [address]Dr. Chapisrenu Pulliam Eosinophils/100 WBC (Bld) 1.3 % Normal 0.9-7.0 [facility] Comment on above: Performed By: #### C BC ####[facility] Xjzkzyxidb67[address] [place], [place] [address]Dr. Garima Pulliam Erythrocyte distribution width (RBC) [Ratio] 13.7 % Normal 11.0-15.0 [facility] Comment on above: Performed By: #### C BC ####[facility] Brfhxpmybe8459[address] [place], [place] [address]Dr. Garima Pulliam Hematocrit (Bld) [Volume fraction] 46.4 % Normal 42.0-54.0 [facility] Comment on above: Performed By: #### C BC ####[facility] Evllvypzgj66[address] [place], [place] [address]Dr. Garima Pulliam Hemoglobin (Bld) [Mass/Vol] 15.7 g/dL Normal 14.0-18.0 [facility] Comment on above: Performed By: #### C BC ####[facility] Odbosjtlwl[address] [place], [place] [address]Dr. Garima Pulliam IG # 0.04 10e3/ul Critically high 0.00-0.03 [facility] Comment on above: Performed By: #### C BC ####[facility] Yqjevdipfp6102 [place] [id number]. Garima Pulliam IG % 0.3 % Normal 0.0-0.5 [facility] Comment on above: Performed By: #### C BC ####[facility] Bbjcgctalv3318 [place] [phone]. Garima Pulliam LYMPH # 1.7 103/ul Normal 1.2-3.8 [facility] Comment on above: Performed By: #### C BC ####[facility] Mfhdibucrh9242 [place] [phone]. Garima Pulliam Lymphocytes/100 WBC (Bld) 11.5 % Critically low 20.5-60.0 [facility] Comment on above: Performed By: #### C BC ####[facility] Qjitplsbzv6950 [place] [phone]. Garima Pulliam MANUAL DIFF REQ NO Normal [facility] Comment on above: Performed By: #### C BC ####[facility] Vbysgrdovf3635 [place] [phone]. Garima Pulliam MCH (RBC) [Entitic mass] 31.0 pg Normal 25.9-34.0 [facility] Comment on above: Performed By: #### C BC ####[facility] Saodlvjqfd2696 [place] [phone]. Garima Pulliam MCHC (RBC) [Mass/Vol] 33.8 g/dL Normal 29.9-35.2 [facility] Comment on above: Performed By: #### C BC ####[facility] Wmmxfadxus5649 [place] [phone]. Garima Pulliam MCV (RBC) [Entitic vol] 91.7 fL Normal 80.0-94.0 [facility] Comment on above: Performed By: #### C BC ####[facility] Houduupbno1346 [place] [phone]. Garima Heraclio MONO # 0.8 103/ul Normal 0.3-0.8 [facility] Comment on above: Performed By: #### C BC ####[facility] Efwwrpofqh9832 [place] [phone]. Garima Pulliam Monocytes/100 WBC (Bld) 5.2 % Normal 1.7-12.0 [facility] Comment on above: Performed By: #### C BC ####[facility] Bkgmhgmurz6837 [place] [phone]. Garima Pulliam NEUT # 11.7 103/ul Critically high 1.4-6.5 The [facility] Comment on above: Performed By: #### C BC ####[facility] Ykjkncqhnb5206 [place] [phone]. Garima Pulliam Neutrophils/100 WBC (Bld) 81.5 % Critically high 43.0-75.0 [facility] Comment on above: Performed By: #### C BC ####[facility] Xleqlbslvk7379 [place] [address]Dr. Garima Pulliam Platelet mean volume (Bld) [Entitic vol] 8.6 fL Critically low 9.5-13.5 [facility] Comment on above: Performed By: #### C BC ####[facility] Thjcqoztyr6651 [place] [phone]. Garima Pulliam PLT 191 103/ul Normal 150-450 [facility] Comment on above: Performed By: #### C BC ####[facility] Tmczpnczwk[address] [place], [place] [address]Dr. Garima Pulliam RBC 5.06 106/ul Normal 4.70-6.10 [facility] Comment on above: Performed By: #### C BC ####[facility] Mocpfvahia[address] [place], [place] [address]Dr. Garima Pulliam WBC 14.4 103/ul Critically high 4.0-11.0 The [facility] Comment on above: Performed By: #### C BC ####[facility] Vxmehsxwhx[address] [place], [place] [address]Dr. Garima Pulliam [facility] SARS-CoV-2 (COVID-19) RNA MARIE+probe Ql (Unsp spec) Not detected Normal NOT DETECTED [facility] Comment on above: Result Comment: When [...] for this test is supported by the [employer] Worker of Health and Human Service's declaration that [...] be used). Performed By: #### C VDTBH ####[facility] Syturmfyjt[address] [place], [place] [address]Dr. Garima Pulliam LACTATE/LACTIC ACIDon 2021 Lactate [Moles/Vol] 1.0 mmol/L Normal 0.4-1.9 [facility] Comment on above: Performed By: #### L ACT ####[facility] Qxaiofdtnv4[address] [place], [place] [address]Dr. Garima Pulliam PROF CHEM 8 (BAS METB)on Anion gap [Moles/Vol] 11.6 mmol/L Normal [facility] Comment on above: Performed By: #### B NANCY HERNANDEZ ####[facility] Fiogylxqwz8850 [place] [address]Dr. Garima Pulliam Calcium [Mass/Vol] 9.2 mg/dL Normal 8.5-10.[address] [facility] Comment on above: Performed By: #### B NANCY HERNANDEZ ####[facility] Okgvmjhdhv9303 [place] [address]Dr. Garima Pulliam Chloride [Moles/Vol] 105 mmol/L Normal 98-107 [facility] Comment on above: Performed By: #### B MP, CMADM ####[facility] Qgyqzjmtoe1788 [place] [phone]. Garima Pulliam CO2 [Moles/Vol] 25.9 mmol/L Normal 21.0-32.0 [facility] Comment on above: Performed By: #### B DAVID, CMADM ####[facility] Ygnmbkemzs3123 [place] [address]Dr. Garima Pulliam Creatinine [Mass/Vol] 0.72 mg/dL Normal 0.70-1.30 [facility] Comment on above: Performed By: #### B DAVID, CMADM ####[facility] Hfblczkxyg8336 [place] [phone]. Garima Pulliam EGFR-AF SOMALI >60 Normal >=60 [facility] Comment on above: Performed By: #### B DAVID, CMADM ####[facility] [address] [place] [address]Dr. Chapisrenu Pulliam EGFR-NON AF SOMALI >60 Normal >=60 [facility] Comment on above: Performed By: #### B DAVID, CMAANA ROSA ####[facility] [address] [place] [address]Dr. Garima Pulliam Glucose [Mass/Vol] 111 mg/dL Critically high 74-106 [facility] Comment on above: Performed By: #### B DAVID, CMADM ####[facility] [address] [place] [address]Dr. Chapisrenu Pulliam Potassium [Moles/Vol] 3.5 mmol/L Normal 3.5-5.1 [facility] Comment on above: Performed By: #### B DAVID, CMADM ####[facility] [address] [place] [address]Dr. Chapisrenu Pulliam Sodium [Moles/Vol] 139 mmol/L Normal 136-[address] [facility] Comment on above: Performed By: #### B DAVID, CMADM ####[facility] [address] [place] [address]Dr. Garima Pulliam Urea nitrogen [Mass/Vol] 7.0 mg/dL Normal 7.0-18.0 [facility] Comment on above: Performed By: #### B DAVID, CMADM ####[facility] [address] [place], [place] [address]Zc. Garima Pulliam Urea nitrogen/Creatinine [Mass ratio] 9.7 mg/mg Normal [facility] Comment on above: Performed By: #### B MP, CMADM ####[facility] [address] [place], [place] [address]My. Garima Pulliam XR CHEST 1 Von 09-12-2022 XR CHEST 1 V Normal [facility] Encounters Encounter Date Encounter Type Care [...] Facility:H1 Payers Date Payer Category Payer Unknown [id number] 1960 Medicaid [id number] 1960 Unknown [id number] 1959 Unknown [id number] 1954 Unknown [id number] 2.16.84 0.1.116594.3.579.2.593 1954 Unknown [id number] 2.16.84 0.1.171843.3.579.2.593 1954 Unknown [id number] 2.16.84 0.1.405073.3.579.2.593 1954 Unknown [id number] 2.16.84 0.1.157837.3.579.2.593 1954 Unknown [id number] 2.16.84 0.1.924566.3.579.2.593 1954 Unknown [id number] 2.16.84 0.1.325556.3.579.2.593 1954 Unknown [id number] 2.16.84 0.1.008800.3.579.2.593 1954 Unknown [id number] 2.16.84 0.1.941661.3.579.2.593 1954 Unknown [id number] 2.16.84 0.1.125673.3.579.2.593 1954 Unknown [id number] 2.16.84 0.1.853506.3.579.2.593 1954 Unknown [id number] 2.16.84 0.1.790143.3.579.2.593 1954 Unknown [id number] 2.16.84 0.1.180905.3.579.2.593 1954 Unknown [id number] 2.16.84 0.1.519902.3.579.2.593 1954 Unknown [id number] 2.16.84 0.1.669821.3.579.2.593 1954 Unknown [id number] 2.16.84 0.1.951111.3.579.2.593 1954 Unknown [id number] 2.16.84 0.1.463844.3.579.2.593 1954 Unknown [id number] 2.16.84 0.1.214944.3.579.2.593 1954 Unknown [id number] 2.16.84 0.1.471957.3.579.2.593 1954 Unknown [id number] 2.16.84 0.1.213533.3.579.2.593 1954 Unknown [id number] 2.16.84 0.1.596897.3.579.2.593 Summary Purpose Family History No Family History Records Found Advance Directives No Advanced Directives Records Found Additional Source Comments (unrecognized sect ion and content) No Status Records Found INFORMATION SOURCE (unrecogn ized section and content) DATE CREATED AUTHOR 04/08/2023 [facility] [place] FOR RECORDS PERTAINING TO PATIENTS WHO ARE [...] BASED ON THE PRIMARY CLINICAL RECORDS. [facility] [employer] [facility]. provides no warranty or guarantee of the accuracy or completeness of information in this document.
[2024-10-01 00:13] VITALS: BP 174/103; PULSE 88; TEMP 36.6; O2SAT 92; BMI 23.7
--- NOTE | 2024-10-01 00:19 | ED.SOB1 ---
HPI - SOB/Dyspnea General Chief Complaint: Shortness of Breath/Dyspnea Stated Complaint: sob Time Seen by Provider: 10/01/24 00:13 Source: patient Mode of arrival: Wheelchair Limitations: no limitations History of Present Illness HPI Narrative: history of COPD and daily smoker. Well known to ER staff. Presents requesting albuterol treatment because of shortness of breath. No fever or chest pain. No nausea Related Data Home Medications ?Medication ?Instructions ?Recorded ?Confirmed albuterol sulfate 90 mcg/actuation 2 inh inhalation Q6H PRN shortness 03/13/24 10/02/24 aerosol inhaler of breath or wheezing Previous Rx's ?Medication ?Instructions ?Recorded losartan 100 mg tablet 100 mg PO DAILY #30 tabs 12/27/23 albuterol sulfate 2.5 mg/3 mL 2.5 mg (3 mL) inhalation Q6H PRN 05/26/24 (0.083 %) solution for nebulization shortness of breath or wheezing #90 mL loratadine 10 mg tablet (Claritin) 10 mg PO DAILY #20 tabs 05/30/24 albuterol sulfate 2.5 mg/3 mL 2.5 mg (3 mL) inhalation Q6H PRN 08/07/24 (0.083 %) solution for nebulization shortness of breath or wheezing #90 mL albuterol sulfate 90 mcg/actuation 2 inh inhalation Q4H PRN shortness 08/07/24 aerosol inhaler of breath or wheezing #8.5 grams albuterol sulfate 2.5 mg/3 mL 1.25 mg (1.5 mL) inhalation Q6H 09/04/24 (0.083 %) solution for nebulization PRN bronchospasm #75 mL albuterol sulfate 90 mcg/actuation 2 inh inhalation Q6H PRN shortness 09/04/24 aerosol inhaler of breath or wheezing #6.7 grams albuterol sulfate 2.5 mg/3 mL 2.5 mg (3 mL) inhalation Q6H PRN 09/12/24 (0.083 %) solution for nebulization shortness of breath or wheezing #90 mL azithromycin 250 mg tablet See Rx Instructions PO .COMPLEX #6 09/21/24 (Zithromax Z-Luis) tabs prednisone 20 mg tablet See Rx Instructions .Route 09/21/24 .COMPLEX #12 tabs albuterol sulfate 2.5 mg/0.5 mL 2.5 mg (0.5 mL) inhalation Q4H PRN 10/02/24 solution for nebulization shortness of breath or wheezing #30 ea albuterol sulfate 90 mcg/actuation 2 inh inhalation Q4H PRN shortness 10/02/24 aerosol inhaler of breath or wheezing #6.7 grams Allergies Allergy/AdvReac Type Severity Reaction Status Date / Time No Known Drug Allergies Allergy Verified 10/02/24 03:40 Review of Systems ROS Status of ROS 10 or more systems reviewed and unremarkable except as noted in history and below [facility] Medical History (Updated 10/02/24 @ 03:46 by Abdullahi Ivory MD) Hypokalemia ?E87.6 - Hypokalemia (ICD-10) New onset type 2 diabetes mellitus ?E11.9 - Type 2 diabetes mellitus without complications (ICD-10) Lower extremity edema ?R60.0 - Localized edema (ICD-10) Edema ?R60.9 - Edema, unspecified (ICD-10) Acute hyperglycemia ?R73.9 - Hyperglycemia, unspecified (ICD-10) Tobacco abuse ?Z72.0 - Tobacco use (ICD-10) HTN (hypertension) ?I10 - Essential (primary) hypertension (ICD-10) Community acquired pneumonia ?J18.9 - Pneumonia, unspecified organism (ICD-10) Chronic obstructive pulmonary disease ?J44.9 - Chronic obstructive pulmonary disease, unspecified (ICD-10) Acute exacerbation of chronic obstructive pulmonary disease (COPD) ?J44.1 - Chronic obstructive pulmonary disease with (acute) exacerbation (ICD-10) RLL pneumonia ?J18.9 - Pneumonia, unspecified organism (ICD-10) COPD (chronic obstructive pulmonary disease) ?J44.9 - Chronic obstructive pulmonary disease, unspecified (ICD-10) Surgical History (Updated 01/29/24 @ 06:45 by Latonia Martin RN) Hx of tonsillectomy ?Z90.89 - Acquired absence of other organs (ICD-10) Family History (Updated 12/25/23 @ 21:28 by Kym Ordaz) Mother Family history of cancer Family history of hypertension Father Family history of cancer Social History Within the past year, how often did you have a drink containing alcohol: 4 or more times a week Within the past year, how many standard drinks containing alcohol did you have on a typical day: 3 or 4 Within the past year, how often did you have six or more drinks on one occasion: less than monthly Total score: 3 Score interpretation: A score of 4 or more indicates drinking is likely to affect patient's safety. Smoking status: Current every day smoker Non-prescribed substance use: cannabis (any form) Previous occupational history: retired Highest level of school completed/degree received: high school graduate Are you now , , , , never or living with a partner: In a typical week, how many times do you talk on the telephone with family, friends, or neighbors: twice per week How often do you get together with friends or relatives: once per week How often do you attend advent or episcopalian services: never Do you belong to any clubs or organizations such as advent groups unions, [email or web address] or athletic groups, or school groups: no Total score: 1 Score interpretation: A score of less than or equal to 1 indicates the most socially isolated. Little interest or pleasure in doing things: not at all Feeling down, depressed, or hopeless: not at all Feel stressed/tense/nervous/anxious/difficulty sleeping: not at all Do you think of yourself as: straight/heterosexual Gender Identity: male Exam Constitutional Vital Signs, click to edit/add: Last Vital Signs Temp 97.9 F 10/01/24 00:13 Pulse 88 10/01/24 00:23 Resp 16 10/01/24 00:23 BP 174/103 H 10/01/24 00:13 Pulse Ox 94 L 10/01/24 00:23 O2 Del Method Room Air 10/01/24 00:23 Common normals: no apparent distress, average body habitus, oriented x3, no limitations, healthy appearing, alert and well nourished [facility] Common normals: normocephalic and head/scalp atraumatic Respiratory Other: diminished breath sounds. Cardio Common normals: regular rate, regular rhythm, S1 normal heart sound and S2 normal heart sound GI Common normals: Normal to inspection, nondistended, normoactive bowel sounds present, soft to palpation and non-tender Extremity Common normals: normal to inspection and full ROM Neuro Common normals: oriented x3, CN's II-XII intact bilaterally, moves all extremities and no focal motor deficits Psych Appearance: grossly normal Course Vital Signs Vital signs: Vital Signs Temperature 97.9 F 10/01/24 00:13 Pulse Rate 88 10/01/24 00:13 Respiratory Rate 18 10/01/24 00:13 Blood Pressure 174/103 H 10/01/24 00:13 Pulse Oximetry 92 L 10/01/24 00:13 Temperature 97.9 F 10/01/24 00:13 Pulse Rate 88 10/01/24 00:23 Respiratory Rate 16 10/01/24 00:23 Blood Pressure 174/103 H 10/01/24 00:13 Pulse Oximetry 94 L 10/01/24 00:23 Oxygen Delivery Method Room Air 10/01/24 00:23 MDM - SOB/Dyspnea MDM Narrative Medical decision making narrative: patient presents with mild COPD exacerbation. Given albuterol NMT. Now feeling better and ready to go home. Prescription provided for an albuterol inhaler Discharge Plan Discharge Chief Complaint: Shortness of Breath/Dyspnea Clinical Impression: Acute exacerbation of chronic obstructive pulmonary disease Patient Disposition: Home, Self-Care Condition: Good Mode of Transportation: Private Vehicle Prescriptions / Home Meds: No Action losartan 100 mg tablet 100 mg PO DAILY Qty: 30 11RF albuterol sulfate 90 mcg/actuation HFA aerosol inhaler 2 inh inhalation Q6H PRN (Reason: shortness of breath or wheezing) albuterol sulfate 2.5 mg /3 mL (0.083 %) solution for nebulization 2.5 mg inhalation Q6H PRN (Reason: shortness of breath or wheezing) Qty: 90 0RF albuterol sulfate 2.5 mg /3 mL (0.083 %) solution for nebulization 2.5 mg inhalation Q6H PRN (Reason: shortness of breath or wheezing) Qty: 90 0RF albuterol sulfate 90 mcg/actuation HFA aerosol inhaler 2 inh inhalation Q4H PRN (Reason: shortness of breath or wheezing) Qty: 8.5 0RF albuterol sulfate 2.5 mg /3 mL (0.083 %) solution for nebulization 2.5 mg inhalation Q6H PRN (Reason: shortness of breath or wheezing) Qty: 90 0RF azithromycin [Zithromax Z-Luis] 250 mg tablet See Rx Instructions .ROUTE .COMPLEX Qty: 6 0RF Rx Instructions: For 250 mg dose pack: take 500 mg today (day 1), then 250 mg for 4 days (days 2-5) prednisone 20 mg tablet See Rx Instructions .ROUTE .COMPLEX Qty: 12 0RF Rx Instructions: 3 tabs daily for 2 days, then 2 tabs daily for 2 days, then 1 tab daily for 2 days albuterol sulfate 2.5 mg/0.5 mL solution for nebulization 2.5 mg inhalation Q4H PRN (Reason: shortness of breath or wheezing) Qty: 30 2RF albuterol sulfate 90 mcg/actuation HFA aerosol inhaler 2 inh inhalation Q4H PRN (Reason: shortness of breath or wheezing) Qty: 6.7 0RF loratadine [Claritin] 10 mg tablet 10 mg PO DAILY Qty: 20 0RF albuterol sulfate 2.5 mg /3 mL (0.083 %) solution for nebulization 1.25 mg inhalation Q6H PRN (Reason: bronchospasm) Qty: 75 0RF albuterol sulfate 90 mcg/actuation HFA aerosol inhaler 2 inh inhalation Q6H PRN (Reason: shortness of breath or wheezing) Qty: 6.7 0RF Print Language: [place] Islander Instructions: COPD (Chronic Obstructive Pulmonary Disease) (ED) Referrals: SERG DUENAS [Primary Care Provider] - 1 week Discharge Date/Time: 10/01/24 00:50
[2024-10-01 00:23] VITALS: PULSE 88; O2SAT 94
[2024-10-01] MEDS: IPRATROPIUM/ALBUTEROL SULFATE 3 ML AMPUL.NEB IH (00:23)
== END 2024-10-01 00:50 | disposition home or self-care (01) ==
PROVIDERS: Emergency Provider Internal Medicine
DX: J44.1 Chronic obstructive pulmonary disease with (acute) exacerbation (principal); F17.200 Nicotine dependence, unspecified, uncomplicated
CPT/HCPCS: 94640; 99283

== ENCOUNTER 2024-10-02 03:32 | Emergency (ER) | payer MEDICARE, SELFPAY ==
[2024-10-02 03:38] VITALS: BP 192/105; PULSE 89; TEMP 36.8; O2SAT 96; BMI 33.9
--- OUTSIDE RECORDS SUMMARY | 2024-10-02 03:39 | XMS_ITS | CCD ---
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 Garima Pulliam Basophils/100 WBC (Bld) 0.3 % Normal 0.2-2.0 [facility] Comment on above: Performed By: #### C BC ####[facility] Tptazygjzf05[address] [place] [address]DrAdalberto Pulliam EO # 0.3 103/ul Normal 0.0-0.7 [facility] Comment on above: Performed By: #### C BC ####[facility] Oymprrumdc[address] [place], [place] [address]Dr. Garima Pulliam Eosinophils/100 WBC (Bld) 2.8 % Normal 0.9-7.0 [facility] Comment on above: Performed By: #### C BC ####[facility] Eftapeakxw[address] [place] [address]Dr. Garima Pulliam Erythrocyte distribution width (RBC) [Ratio] 13.4 % Normal 11.0-15.0 [facility] Comment on above: Performed By: #### C BC ####[facility] Nisgdsjwqt99[address] [place] [address]Dr. Garima Pulliam Hematocrit (Bld) [Volume fraction] 45.7 % Normal 42.0-54.0 [facility] Comment on above: Performed By: #### C BC ####[facility] Lratluolrq28[address] [place] [address]Dr. Garima Pulliam Hemoglobin (Bld) [Mass/Vol] 15.2 g/dL Normal 14.0-18.0 [facility] Comment on above: Performed By: #### C BC ####[facility] Vcvtatzeod7665 [place] [address]Dr. Garima Pulliam IG # 0.02 10e3/ul Normal 0.00-0.03 [facility] Comment on above: Performed By: #### C BC ####[facility] Msuxlbnsyq1544 [place] [address]Dr. Garima Pulliam IG % 0.2 % Normal 0.0-0.5 [facility] Comment on above: Performed By: #### C BC ####[facility] Ypadvexwdh65[address] [place] [address]Dr. Garima Pulliam LYMPH # 2.1 103/ul Normal 1.2-3.8 [facility] Comment on above: Performed By: #### C BC ####[facility] Xjhbtjwmgs7805 [place] [address]Dr. Garima Pulliam Lymphocytes/100 WBC (Bld) 23.7 % Normal 20.5-60.0 [facility] Comment on above: Performed By: #### C BC ####[facility] Bxaygrbrwc9[address] [place] [address]Dr. Garima Heraclio MANUAL DIFF REQ NO Normal [facility] Comment on above: Performed By: #### C BC ####[facility] Shkrdnkkxb77[address] [place] [address]Dr. Garima Pulliam MCH (RBC) [Entitic mass] 30.4 pg Normal 25.9-34.0 [facility] Comment on above: Performed By: #### C BC ####[facility] Pitgmezvry59[address] [place] [address]Dr. Garima Heraclio MCHC (RBC) [Mass/Vol] 33.3 g/dL Normal 29.9-35.2 [facility] Comment on above: Performed By: #### C BC ####[facility] Jrxrdktltz[address] [place], [place] [address]Dr. Chapisrenu Pulliam MCV (RBC) [Entitic vol] 91.4 fL Normal 80.0-94.0 [facility] Comment on above: Performed By: #### C BC ####[facility] Ajuxnkuwrh43[address] [place], [place] [address]Dr. Garima Heraclio MONO # 0.7 103/ul Normal 0.3-0.8 [facility] Comment on above: Performed By: #### C BC ####[facility] Ahsritanzz74[address] [place], [place] [address]Dr. Chapisrenu Pulliam Monocytes/100 WBC (Bld) 8.3 % Normal 1.7-12.0 [facility] Comment on above: Performed By: #### C BC ####[facility] Opoewpuzqj9781 [place] [address]Dr. Chapisrenu Heraclio NEUT # 5.8 103/ul Normal 1.4-6.5 [facility] Comment on above: Performed By: #### C BC ####[facility] Akqradvcfk[address] [place], [place] [address]Dr. Garima Pulliam Neutrophils/100 WBC (Bld) 64.7 % Normal 43.0-75.0 [facility] Comment on above: Performed By: #### C BC ####[facility] Beacaicksb7406 [place] [address]Dr. Garima Pulliam Platelet mean volume (Bld) [Entitic vol] 8.6 fL Critically low 9.5-13.5 [facility] Comment on above: Performed By: #### C BC ####[facility] Awsvhpvnbx6809 [place] [address]Dr. Garima Pulliam PLT 230 103/ul Normal 150-450 [facility] Comment on above: Performed By: #### C BC ####[facility] Jlqbvxgird6052 [place] [address]Dr. Chapisrenu Heraclio RBC 5.00 106/ul Normal 4.70-6.10 [facility] Comment on above: Performed By: #### C BC ####[facility] Huaajzlnro9297 [place] [address]Dr. Garima Heraclio WBC 9.0 103/ul Normal 4.0-11.0 [facility] Comment on above: Performed By: #### C BC ####[facility] Rgsahgpuvo3439 [place] [address]Dr. Garima Pulliam MAGNESIUMon 04-04-2023 Magnesium [Mass/Vol] 1.8 mg/dL Normal 1.8-2.4 [facility] Comment on above: Performed By: #### M G ####[facility] Ffliglokji9801 [place] [address]Dr. Chapisrenu Pulliam PROF 14(COMP METB)on 023 Albumin [Mass/Vol] 3.8 g/dL Normal 3.4-5.0 [facility] Comment on above: Performed By: #### C MP ####[facility] Cvifmmznoa0969 [place] [address]Dr. Garima Pulliam Albumin/Globulin [Mass ratio] 1.2 {ratio} Normal [facility] Comment on above: Performed By: #### C MP ####[facility] Laqbttngfs9664 [place] [address]Dr. Garima Heraclio ALP [Catalytic activity/Vol] 84 U/L Normal 46-116 [facility] Comment on above: Performed By: #### C MP ####[facility] Abgbojeptb7215 [place] [id number]. Garima Pulliam ALT [Catalytic activity/Vol] 31 U/L Normal 16-63 [facility] Comment on above: Performed By: #### C MP ####[facility] Heynglefdi2501 [place] [address]Dr. Garima Pulliam Anion gap [Moles/Vol] 12.2 mmol/L Normal [facility] Comment on above: Performed By: #### C MP ####[facility] Mgzblbyfsq9041 [place] [address]Dr. Garima Pulliam AST [Catalytic activity/Vol] 23 U/L Normal 15-37 [facility] Comment on above: Performed By: #### C MP ####[facility] Yxntuohxvg[address] [place], [place] [address]Dr. Garima Pulliam Bilirubin [Mass/Vol] 0.5 mg/dL Normal 0.2-1.0 [facility] Comment on above: Performed By: #### C MP ####[facility] Skrpqgqvyf[address] [place], [place] [address]Dr. Garima Pulliam Calcium [Mass/Vol] 9.2 mg/dL Normal 8.5-10.1 [facility] Comment on above: Performed By: #### C MP ####[facility] Whrunnggxa[address] [place], [place] [address]Dr. Garima Pulliam Chloride [Moles/Vol] 103 mmol/L Normal 98-107 [facility] Comment on above: Performed By: #### C MP ####[facility] Sowzwcptrl0866 [place] [address]Dr. Garima Pulliam CO2 [Moles/Vol] 28.5 mmol/L Normal 21.0-32.0 [facility] Comment on above: Performed By: #### C MP ####[facility] Mjjzubhrbk324[address] [place], [place] [address]Dr. Garima Pulliam Creatinine [Mass/Vol] 0.74 mg/dL Normal 0.70-1.30 [facility] Comment on above: Performed By: #### C MP ####[facility] Bkfzfnotsg5234 [place] [id number]. Garima Pulliam EGFR-AF GIBRALTARIAN >60 Normal >=60 [facility] Comment on above: Performed By: #### C MP ####[facility] Ippjybpfyl5098 [place] [address]Dr. Garima Heraclio EGFR-NON AF GIBRALTARIAN >60 Normal >=60 [facility] Comment on above: Performed By: #### C MP ####[facility] Hprnsopbia1133 [place] [id number]. Garima Heraclio Globulin (S) [Mass/Vol] 3.1 g/dL Normal [facility] Comment on above: Performed By: #### C MP ####[facility] Cusqbjmugo[address] [place], [place] [address]Dr. Garima Heraclio Glucose [Mass/Vol] 93 mg/dL Normal 74-106 [facility] Comment on above: Performed By: #### C MP ####[facility] Bknwyoqrif5[address] [place], [place] [address]Dr. Garima Heraclio Potassium [Moles/Vol] 3.7 mmol/L Normal 3.5-5.1 [facility] Comment on above: Performed By: #### C MP ####[facility] Wpvqxtbtsn[address] [place], [place] [address]Dr. Garima Heraclio Protein [Mass/Vol] 6.9 g/dL Normal 6.4-8.2 [facility] Comment on above: Performed By: #### C MP ####[facility] Erigettbmm8[address] [place], [place] [address]Dr. Garima Heraclio Sodium [Moles/Vol] 140 mmol/L Normal 136-145 [facility] Comment on above: Performed By: #### C MP ####[facility] Vkhieugtar7[address] [place], [place] [address]Dr. Garima Pulliam Urea nitrogen [Mass/Vol] 8.0 mg/dL Normal 7.0-18.0 [facility] Comment on above: Performed By: #### C MP ####[facility] Vmrhmehijg034[address] [place], [place] [address]Dr. Garima Pulliam Urea nitrogen/Creatinine [Mass ratio] 10.8 mg/mg Normal [facility] Comment on above: Performed By: #### C DAVID ####[facility] Luyeyfitbf6640 [place] [address]Dr. Garima Pulliam AMMONIAon 03-30-2023 Ammonia (P) [Moles/Vol] 11 umol/L Normal 11-32 [facility] Comment on above: Performed By: #### A MM ####[facility] Vdzdthxbtm[address] [place], [place] [address]Dr. Garima Pulliam CARDIAC NASH ADMITon 023 CK [Catalytic activity/Vol] 232 U/L Normal 39-308 [facility] Comment on above: Performed By: #### C NANCY HERNANDEZ ####[facility] Xmrigzdymf1616 [place] [address]Dr. Chapisrenu Pulliam CK.MB [Mass/Vol] 4.83 ng/mL Critically high <=3.60 [facility] Comment on above: Performed By: #### C NANCY HERNANDEZ ####[facility] Ncqyiomqxw[address] [place], [place] [address]Dr. Garima Pulliam HSTROP 10.5 pg/mL Normal 4.0-76.1 [facility] Comment on above: Result Comment: CUT- OFF POINTS HAVE BEEN ESTABLISHED BASED ON THE FOURTH UNIVERSAL DEFINITIONS OF MYOCARDIALINFARCTION. THE UPPER REFERENCE LIMIT (URL) OF TROPONIN, DEFINED THE 99TH PERCENTILE OFcTnI DISTRIBUTION IN A REFERENCE POPULATION, HAS BEEN CONFIRMED THE DECISION THRESHOLDFOR MD DIAGNOSIS. Performed By: #### C NANCY HERNANDEZ ####[facility] Ljwclgcgls[address] [place], [place] [address]Dr. Garima Heraclio DORIS 79 ng/mL Normal 16-96 [facility] Comment on above: Performed By: #### C NANCY HERNANDEZ ####[facility] Kzwawegfhw40[address] [place], [place] [address]Dr. Garima Heraclio CBC AUTO DIFFon 03-30-2023 BASO # 0.0 103/ul Normal 0.0-0.1 [facility] Comment on above: Performed By: #### C BC ####[facility] Zabzqxrpzd1276 [place] [id number]. Garima Pulliam Basophils/100 WBC (Bld) 0.1 % Critically low 0.2-2.0 [facility] Comment on above: Performed By: #### C BC ####[facility] Xmazcxayfn9390 [place] [id number]. Garima Pulliam EO # 0.3 103/ul Normal 0.0-0.7 [facility] Comment on above: Performed By: #### C BC ####[facility] [address]fus[address] [place], [place] [address]Dr. Garima Pulliam Eosinophils/100 WBC (Bld) 3.3 % Normal 0.9-7.0 [facility] Comment on above: Performed By: #### C BC ####[facility] Enqfqrfwvo[address] [place], [place] [address]Dr. Garima Pulliam Erythrocyte distribution width (RBC) [Ratio] 13.5 % Normal 11.0-15.0 [facility] Comment on above: Performed By: #### C BC ####[facility] Xcn[address]dp[address] [place], [place] [address]Dr. Garima Pulliam Hematocrit (Bld) [Volume fraction] 42.9 % Normal 42.0-54.0 [facility] Comment on above: Performed By: #### C BC ####[facility] Tgigaevpxw[address] [place], [place] [address]Dr. Garima Pulliam Hemoglobin (Bld) [Mass/Vol] 13.9 g/dL Critically low 14.0-18.0 [facility] Comment on above: Performed By: #### C BC ####[facility] Reaqobpntp9208 [place] [id number]. Garima Pulliam IG # 0.01 10e3/ul Normal 0.00-0.03 [facility] Comment on above: Performed By: #### C BC ####[facility] Tiponpwjlf[address] [place], [place] [address]Dr. Garima Pulliam IG % 0.1 % Normal 0.0-0.5 [facility] Comment on above: Performed By: #### C BC ####[facility] Nademttdfj0147 [place] [id number]. Garima Pulliam LYMPH # 1.7 103/ul Normal 1.2-3.8 [facility] Comment on above: Performed By: #### C BC ####[facility] Kztjcawmli[address]87 [place], [place] [address]Zu. Garima Pulliam Lymphocytes/100 WBC (Bld) 22.8 % Normal 20.5-60.0 [facility] Comment on above: Performed By: #### C BC ####[facility] Dmrnpuidub0199 [place] [id number]. Garima Heraclio MANUAL DIFF REQ NO Normal [facility] Comment on above: Performed By: #### C BC ####[facility] Jvkpvykbpr3553 [place] [id number]. Garima Heraclio MCH (RBC) [Entitic mass] 30.5 pg Normal 25.9-34.0 [facility] Comment on above: Performed By: #### C BC ####[facility] Dlkvolftzd9483 [place] [id number]. Garima Pulliam MCHC (RBC) [Mass/Vol] 32.4 g/dL Normal 29.9-35.2 [facility] Comment on above: Performed By: #### C BC ####[facility] Lcpampxwhn2198 [place] [id number]. Garima Heraclio MCV (RBC) [Entitic vol] 94.1 fL Critically high 80.0-94.0 [facility] Comment on above: Performed By: #### C BC ####[facility] Iyakqqxoww5027 [place] [id number]. Garima Heraclio MONO # 0.7 103/ul Normal 0.3-0.8 [facility] Comment on above: Performed By: #### C BC ####[facility] Cyddkmjilr5182 [place] [id number]. Garima Heraclio Monocytes/100 WBC (Bld) 8.6 % Normal 1.7-12.0 [facility] Comment on above: Performed By: #### C BC ####[facility] Nnkorypvrc0951 [place] [id number]. Garima Pulliam NEUT # 4.9 103/ul Normal 1.4-6.5 [facility] Comment on above: Performed By: #### C BC ####[facility] Efehrovemr4147 [place] [id number]. Garima Pulliam Neutrophils/100 WBC (Bld) 65.1 % Normal 43.0-75.0 [facility] Comment on above: Performed By: #### C BC ####[facility] Qkedckygot5212 [place] [id number]. Garima Pulliam Platelet mean volume (Bld) [Entitic vol] 8.5 fL Critically low 9.5-13.5 [facility] Comment on above: Performed By: #### C BC ####[facility] Cgkftbrycv1875 [place] [id number]. Garima Pulliam PLT 219 103/ul Normal 150-450 [facility] Comment on above: Performed By: #### C BC ####[facility] Hcabhftgyf4740 [place] [id number]. Garima Pulliam RBC 4.56 106/ul Critically low 4.70-6.10 [facility] Comment on above: Performed By: #### C BC ####[facility] Ayqfclquvj5671 [place] [id number]. Garima Pulliam WBC 7.6 103/ul Normal 4.0-11.0 [facility] Comment on above: Performed By: #### C BC ####[facility] Wdadehmdxa8676 [place] [id number]. Garima Pulliam LACTATE/LACTIC ACIDon 2022 Lactate [Moles/Vol] 1.2 mmol/L Normal 0.4-2.0 [facility] Comment on above: Performed By: #### L ACT ####[facility] Qnoryjfnqn2813 [place] [id number]. Garima Pulliam MAGNESIUMon 03-30-2023 Magnesium [Mass/Vol] 1.8 mg/dL Normal 1.8-2.4 [facility] Comment on above: Performed By: #### M G ####[facility] Ppspvtdonq3930 [place] [address]Dr. Garima Pulliam PROF 14(COMP METB)on 023 Albumin [Mass/Vol] 3.5 g/dL Normal 3.4-5.0 [facility] Comment on above: Performed By: #### C DAVID, CMAANA ROSA ####[facility] Oyrttvxmln3449 [place] [address]Dr. Garima Pulliam Albumin/Globulin [Mass ratio] 1.2 {ratio} Normal [facility] Comment on above: Performed By: #### C DAVID, CMAANA ROSA ####[facility] Hmenubvavs5904 [place] [address]Dr. Garima Pulliam ALP [Catalytic activity/Vol] 85 U/L Normal 46-116 [facility] Comment on above: Performed By: #### C DAVID, CMAANA ROSA ####[facility] Sp[address]oszrws[address] [place], [place] [address]Dr. Garima Pulliam ALT [Catalytic activity/Vol] 29 U/L Normal 16-63 [facility] Comment on above: Performed By: #### C DAVID, CMAANA ROSA ####[facility] Sknbffhqio7060 [place] [address]Dr. Garima Pulliam Anion gap [Moles/Vol] 8.0 mmol/L Normal [facility] Comment on above: Performed By: #### C DAVID, CMAANA ROSA ####[facility] Jzznlysmof1084 [place] [address]Dr. Garima Pulliam AST [Catalytic activity/Vol] 18 U/L Normal 15-37 [facility] Comment on above: Performed By: #### C DAVID, CMADM ####[facility] Nstjzxysxx9260 [place] [address]Dr. Garima Pulliam Bilirubin [Mass/Vol] 0.4 mg/dL Normal 0.2-1.0 [facility] Comment on above: Performed By: #### C DAVID, CMADM ####[facility] Qghlgvtedp5683 [place] [address]Dr. Garima Pulliam Calcium [Mass/Vol] 8.8 mg/dL Normal 8.5-10.1 [facility] Comment on above: Performed By: #### C DAVID, NANCY ####[facility] Fbitqnqpyk7596 [place] [address]Dr. Chapisrenu Pulliam Chloride [Moles/Vol] 108 mmol/L Critically high 98-107 [facility] Comment on above: Performed By: #### C DAVID, NANCY ####[facility] Rgpwudzuom0102 [place] [address]Dr. Garima Pulliam CO2 [Moles/Vol] 29.6 mmol/L Normal 21.0-32.0 [facility] Comment on above: Performed By: #### C NANCY HERNANDEZ ####[facility] Zhcjnayenu[address] [place], [place] [address]Dr. Garima Pulliam Creatinine [Mass/Vol] 0.77 mg/dL Normal 0.70-1.30 [facility] Comment on above: Performed By: #### C NANCY HERNANDEZ ####[facility] Pnpuoiklwv[address] [place], [place] [address]Dr. Garima Heraclio EGFR-AF GIBRALTARIAN >60 Normal >=60 [facility] Comment on above: Performed By: #### C NANCY HERNANDEZ ####[facility] Sxqtvvbkqm[address] [place], [place] [address]Dr. Garima Heraclio EGFR-NON AF GIBRALTARIAN >60 Normal >=60 [facility] Comment on above: Performed By: #### C NANCY HERNANDEZ ####[facility] Nzfevladsw0711 [place] [address]Dr. Garima Pulliam Globulin (S) [Mass/Vol] 2.8 g/dL Normal [facility] Comment on above: Performed By: #### C NANCY HERNANDEZ ####[facility] Betqzavwur5529 [place] [address]Dr. Garima Pulliam Glucose [Mass/Vol] 207 mg/dL Critically high 74-106 [facility] Comment on above: Performed By: #### C NANCY HERNANDEZ ####[facility] Gxdwmgmfea[address] [place], [place] [address]Dr. Garima Pulliam Potassium [Moles/Vol] 4.6 mmol/L Normal 3.5-5.1 [facility] Comment on above: Performed By: #### C DAVID, NANCY ####[facility] Cafrqqyvip8294 [place] [address]Dr. Garima Pulliam Protein [Mass/Vol] 6.3 g/dL Critically low 6.4-8.2 [facility] Comment on above: Performed By: #### C DAVID, NANCY ####[facility] Llitwkxdaw0616 [place] [address]Dr. Garima Pulliam Sodium [Moles/Vol] 141 mmol/L Normal 136-145 [facility] Comment on above: Performed By: #### C DAVID, NANCY ####[facility] Rlkzguwoxj9215 [place] [address]Dr. Garima Pulliam Urea nitrogen [Mass/Vol] 9.0 mg/dL Normal 7.0-18.0 [facility] Comment on above: Performed By: #### C DAVID, NANCY ####[facility] Zkfnuqsyec1772 [place] [address]Dr. Garima Pulliam Urea nitrogen/Creatinine [Mass ratio] 11.7 mg/mg Normal [facility] Comment on above: Performed By: #### C DAVID, NANCY ####[facility] Dgihyzqyhl0625 [place] [address]Dr. Garima Pulliam XR CHEST 1 Von 03-30-2023 XR CHEST 1 V Normal [facility] BNPon 03-27-2023 Natriuretic peptide B (Bld) [Mass/Vol] 251.0 pg/mL Normal <=900.0 [facility] Comment on above: Performed By: #### C MP, BNP, LIPID ####[facility] Yztbmlkcrq8954 [place] [address]Dr. Garima Pulliam GLYCOHEMOGLOBIN A1Con 2022 ADA RECOMMENDATION SEE BELOW Normal [facility] Comment on above: Result Comment: ADA RECOMMENDED LIMIT 4.0 - 6.0 ADA THERAPEUTIC TARGET < 7.0 ACTION SUGGESTED > 7.0 Performed By: #### A 1C ####[facility] Jkesiiarcv5705 [place] [address]Dr. Garima Pulliam Glucose [Mass/Vol] 180 mg/dL Normal [facility] Comment on above: Performed By: #### A 1C ####[facility] [address]qwqkwyenk[address] [place], [place] [address]Dr. Chapisrenu Pulliam HbA1c (Bld) [Mass fraction] 7.9 % Critically high 4.5-6.2 [facility] Comment on above: Performed By: #### A 1C ####[facility] Qprdycnhrq[address] [place], [place] [address]Dr. Garima Pulliam HEMOGRAM AND PLATELon 2022 Hematocrit (Bld) [Volume fraction] 45.7 % Normal 42.0-54.0 [facility] Comment on above: Performed By: #### H H ####[facility] Hncshaplyt[address] [place], [place] [address]Dr. Garima Pulliam Hemoglobin (Bld) [Mass/Vol] 15.1 g/dL Normal 14.0-18.0 [facility] Comment on above: Performed By: #### H H ####[facility] Vmyyycpxmm10[address] [place], [place] [address]Dr. Garima Pulliam MCH (RBC) [Entitic mass] 30.0 pg Normal 25.9-34.0 [facility] Comment on above: Performed By: #### H H ####[facility] Bbjvtbgmff[address] [place], [place] [address]Dr. Garima Pulliam MCHC (RBC) [Mass/Vol] 33.0 g/dL Normal 29.9-35.2 [facility] Comment on above: Performed By: #### H H ####[facility] [address]gmuhmlrel[address] [place], [place] [address]Dr. Garima Pulliam MCV (RBC) [Entitic vol] 90.7 fL Normal 80.0-94.0 [facility] Comment on above: Performed By: #### H H ####[facility] Creqnfeywy[address] [place], [place] [address]Dr. Garima Pulliam PLT 222 103/ul Normal 150-450 [facility] Comment on above: Performed By: #### H H ####[facility] Zbaxpwjozw2224 [place] [id number]. Garima Pulliam RBC 5.04 106/ul Normal 4.70-6.10 [facility] Comment on above: Performed By: #### H H ####[facility] Uhnmootlvl1212 [place] [id number]. Garima Pulliam WBC 8.7 103/ul Normal 4.0-11.0 [facility] Comment on above: Performed By: #### H H ####[facility] Sqlnfrxfge2600 [place] [id number]. Garima Pulliam LIPID PROFILEon 03-27-2023 CHOL-HDL RATIO NORM SEE BELOW Normal [facility] Comment on above: Result Comment: 3.3 - 4.4 LOW RISK 4.4 - 7.1 AVERAGE RISK 7.1 - 11.0 MODERATE RISK >11.0 HIGH RISK Performed By: #### C MP, BNP, LIPID ####[facility] [address]azsflpcdt2020 [place] [address]Dr. Garmia Pulliam Cholesterol [Mass/Vol] 113 mg/dL Normal <=200 [facility] Comment on above: Performed By: #### C MP, BNP, LIPID ####[facility] Mhlrqzvfah5752 [place] [address]Dr. Garima Pulliam Cholesterol in HDL [Mass/Vol] 51 mg/dL Normal 40-60 [facility] Comment on above: Performed By: #### C MP, BNP, LIPID ####[facility] Wwrddflhgt4895 [place] [address]Dr. Garima Pulliam Cholesterol in LDL [Mass/Vol] 49.8 mg/dL Normal [facility] Comment on above: Performed By: #### C MP, BNP, LIPID ####[facility] Rfnptfqixo4139 [place] [address]Dr. Garima Pulliam Cholesterol.total/Cho lesterol in HDL [Mass ratio] 2.2 {ratio} Normal [facility] Comment on above: Performed By: #### C MP, BNP, LIPID ####[facility] [address] [place] [address]Dr. Garima Pulliam HDL NORMAL > or = 60 mg/dl - LOW CARDIOVASCULAR RISK <40 mg/dl - HIGH CARDIOVASCULAR RISK Normal [facility] Comment on above: Performed By: #### C MP, BNP, LIPID ####[facility] Cwkgzymvdy[address] [place] [address]Dr. Garima Pulliam LDL CALC NORMAL SEE BELOW Normal [facility] Comment on above: Result Comment: <100 mg/dl OPTIMAL 100 - 129 mg/dl NEAR OR ABOVE OPTIMAL 130 - 159 mg/dl BORDERLINE HIGH 160 - 189 mg/dl HIGH >190 mg/dl VERY HIGH Performed By: #### C MP, BNP, LIPID ####[facility] Phpfppwmmp[address] [place] [address]Dr. Garima Pulliam Triglyceride [Mass/Vol] 61 mg/dL Normal <=150 [facility] Comment on above: Performed By: #### C MP, BNP, LIPID ####[facility] Lawmzdxdim[address] [place] [address]Dr. Garima Pulliam VLDL CALC 12.2 mg/dL Normal [facility] Comment on above: Performed By: #### C MP, BNP, LIPID ####[facility] Tuusststfj[address] [place] [address]Dr. Garima Pulliam PROF 14(COMP METB)on 023 Albumin [Mass/Vol] 3.5 g/dL Normal 3.4-5.0 [facility] Comment on above: Performed By: #### C MP, BNP, LIPID ####[facility] Mqmpfdtpyl[address] [place] [address]Dr. Garima Pulliam Albumin/Globulin [Mass ratio] 1.2 {ratio} Normal [facility] Comment on above: Performed By: #### C MP, BNP, LIPID ####[facility] Kgcsmseshh[address] [place] [address]Dr. Garima Pulliam ALP [Catalytic activity/Vol] 82 U/L Normal 46-116 [facility] Comment on above: Performed By: #### C MP, BNP, LIPID ####[facility] Jayhhgcsrb[address] [place] [address]Dr. Garima Pulliam ALT [Catalytic activity/Vol] 33 U/L Normal 16-63 [facility] Comment on above: Performed By: #### C MP, BNP, LIPID ####[facility] Oaqqwcnhmz[address] [place] [address]Dr. Garima Pulliam Anion gap [Moles/Vol] 9.9 mmol/L Normal [facility] Comment on above: Performed By: #### C MP, BNP, LIPID ####[facility] Mspdiakxow[address] [place] [address]Dr. Garima Pulliam AST [Catalytic activity/Vol] 24 U/L Normal 15-37 [facility] Comment on above: Performed By: #### C MP, BNP, LIPID ####[facility] Psdituzfya[address] [place] [address]Dr. Garima Pulliam Bilirubin [Mass/Vol] 0.6 mg/dL Normal 0.2-1.0 [facility] Comment on above: Performed By: #### C MP, BNP, LIPID ####[facility] Qsahtlkpeg38[address] [place] [address]Dr. Garima Pulliam Calcium [Mass/Vol] 9.2 mg/dL Normal 8.5-10.1 [facility] Comment on above: Performed By: #### C MP, BNP, LIPID ####[facility] Qldotqhdva7[address] [place] [address]Dr. Garima Pulliam Chloride [Moles/Vol] 106 mmol/L Normal 98-107 [facility] Comment on above: Performed By: #### C MP, BNP, LIPID ####[facility] Apdqjrbeid5[address] [place] [address]Dr. Garima Pulliam CO2 [Moles/Vol] 32.3 mmol/L Critically high 21.0-32.0 [facility] Comment on above: Performed By: #### C MP, BNP, LIPID ####[facility] Udglmhaglr15[address] [place] [address]Dr. Garima Pulliam Creatinine [Mass/Vol] 0.70 mg/dL Normal 0.70-1.30 [facility] Comment on above: Performed By: #### C MP, BNP, LIPID ####[facility] Mkmaoptbmc04[address] [place] [id number]. Garima Pulliam EGFR-AF GIBRALTARIAN >60 Normal >=60 [facility] Comment on above: Performed By: #### C MP, BNP, LIPID ####[facility] Bagpgnzynf[address] [place] [id number]. Garima Pulliam EGFR-NON AF GIBRALTARIAN >60 Normal >=60 [facility] Comment on above: Performed By: #### C MP, BNP, LIPID ####[facility] Blmdkqvymr78[address] [place] [address]Dr. Garima Pulliam Globulin (S) [Mass/Vol] 2.9 g/dL Normal [facility] Comment on above: Performed By: #### C MP, BNP, LIPID ####[facility] Wswawxrojr17[address] [place] [address]Dr. Garima Pulliam Glucose [Mass/Vol] 111 mg/dL Critically high 74-106 [facility] Comment on above: Performed By: #### C MP, BNP, LIPID ####[facility] Ptfwgfufll8435 [place] [address]Dr. Garima Pulliam Potassium [Moles/Vol] 4.2 mmol/L Normal 3.5-5.1 [facility] Comment on above: Performed By: #### C MP, BNP, LIPID ####[facility] Waztfudmlx1136 [place] [address]Dr. Garima Pulliam Protein [Mass/Vol] 6.4 g/dL Normal 6.4-8.2 [facility] Comment on above: Performed By: #### C MP, BNP, LIPID ####[facility] Phlmtxuzdb[address] [place] [address]Dr. Garima Pulliam Sodium [Moles/Vol] 144 mmol/L Normal 136-145 [facility] Comment on above: Performed By: #### C MP, BNP, LIPID ####[facility] Yhpuibayoq67[address] [place] [address]Dr. Garima Pulliam Urea nitrogen [Mass/Vol] 7.0 mg/dL Normal 7.0-18.0 [facility] Comment on above: Performed By: #### C MP, BNP, LIPID ####[facility] Zljttlxosl[address] [place], [place] [address]Dr. Garima Pulliam Urea nitrogen/Creatinine [Mass ratio] 10.0 mg/mg Normal [facility] Comment on above: Performed By: #### C MP, BNP, LIPID ####[facility] Dbroiuajmb[address] [place], [place] [address]Dr. Garima Pulliam BNPon 03-22-2023 Natriuretic peptide B (Bld) [Mass/Vol] 103.0 pg/mL Normal <=900.0 [facility] Comment on above: Performed By: #### B SWATCH CUTTER, BMP ####[facility] Jcqsfhhjjy[address] [place], [place] [address]Dr. Garima Pulliam CBC AUTO DIFFon 03-22-2023 BASO # 0.0 103/ul Normal 0.0-0.1 [facility] Comment on above: Performed By: #### C BC ####[facility] Bmychpjrck[address] [place], [place] [address]Dr. Garima Heraclio Basophils/100 WBC (Bld) 0.3 % Normal 0.2-2.0 [facility] Comment on above: Performed By: #### C BC ####[facility] Yjaqdasmem[address] [place], [place] [address]Dr. Garima Pulliam EO # 0.2 103/ul Normal 0.0-0.7 [facility] Comment on above: Performed By: #### C BC ####[facility] Jbhqgfdfns9[address] [place], [place] [address]Dr. Garima Pulliam Eosinophils/100 WBC (Bld) 2.2 % Normal 0.9-7.0 [facility] Comment on above: Performed By: #### C BC ####[facility] Mqlfqzznbf[address] [place], [place] [address]Dr. Garima Pulliam Erythrocyte distribution width (RBC) [Ratio] 13.2 % Normal 11.0-15.0 [facility] Comment on above: Performed By: #### C BC ####[facility] Eibmrycvux08[address] [place] [id number]. Garima Pulliam Hematocrit (Bld) [Volume fraction] 43.4 % Normal 42.0-54.0 [facility] Comment on above: Performed By: #### C BC ####[facility] Stsmdsgjlk29[address] [place] [address]Dr. Garima Heraclio Hemoglobin (Bld) [Mass/Vol] 14.3 g/dL Normal 14.0-18.0 [facility] Comment on above: Performed By: #### C BC ####[facility] Miqimysgrs79[address] [place] [address]Dr. Garima Pulliam IG # 0.02 10e3/ul Normal 0.00-0.03 [facility] Comment on above: Performed By: #### C BC ####[facility] Ldhlyrcypj7039 [place] [address]Dr. Garima Pulliam IG % 0.3 % Normal 0.0-0.5 [facility] Comment on above: Performed By: #### C BC ####[facility] Gauhngtepl[address] [place] [address]Dr. Chapisrenu Pulliam LYMPH # 2.0 103/ul Normal 1.2-3.8 [facility] Comment on above: Performed By: #### C BC ####[facility] Aznxlszflh35[address] [place] [address]Dr. Chapisrenu Pulliam Lymphocytes/100 WBC (Bld) 24.8 % Normal 20.5-60.0 [facility] Comment on above: Performed By: #### C BC ####[facility] Vnljjfkbkp7437 [place] [address]Dr. Chapisrenu Pulliam MANUAL DIFF REQ NO Normal [facility] Comment on above: Performed By: #### C BC ####[facility] Gqgkzxscan4702 [place] [address]Dr. Garima Heraclio MCH (RBC) [Entitic mass] 30.0 pg Normal 25.9-34.0 [facility] Comment on above: Performed By: #### C BC ####[facility] [address]vvoqelrq[address] [place], [place] [address]Dr. Garima Pulliam MCHC (RBC) [Mass/Vol] 32.9 g/dL Normal 29.9-35.2 [facility] Comment on above: Performed By: #### C BC ####[facility] Btmgpybijt8[address] [place] [id number]. Garima Pulliam MCV (RBC) [Entitic vol] 91.0 fL Normal 80.0-94.0 [facility] Comment on above: Performed By: #### C BC ####[facility] Ewvmozqdbh34[address] [place] [id number]. Garima Heraclio MONO # 0.8 103/ul Normal 0.3-0.8 [facility] Comment on above: Performed By: #### C BC ####[facility] Vygotxrqsm5065 [place] [address]Dr. Chapisrenu Pulliam Monocytes/100 WBC (Bld) 9.7 % Normal 1.7-12.0 [facility] Comment on above: Performed By: #### C BC ####[facility] Zapdutzvxj1252 [place] [address]Dr. Garima Pulliam NEUT # 4.9 103/ul Normal 1.4-6.5 [facility] Comment on above: Performed By: #### C BC ####[facility] Ybcgdffanz0130 [place] [id number]. Garima Heraclio Neutrophils/100 WBC (Bld) 62.7 % Normal 43.0-75.0 [facility] Comment on above: Performed By: #### C BC ####[facility] Jadubtobwr3519 [place] [id number]. Garima Heraclio Platelet mean volume (Bld) [Entitic vol] 8.8 fL Critically low 9.5-13.5 [facility] Comment on above: Performed By: #### C BC ####[facility] Tkvegzglgz9018 [place] [id number]. Garima Heraclio PLT 198 103/ul Normal 150-450 [facility] Comment on above: Performed By: #### C BC ####[facility] Dzoasfsjcu9353 [place] [id number]. Garima Heraclio RBC 4.77 106/ul Normal 4.70-6.10 [facility] Comment on above: Performed By: #### C BC ####[facility] Auqvvrskxl4316 [place] [id number]. Garima Heraclio WBC 7.9 103/ul Normal 4.0-11.0 [facility] Comment on above: Performed By: #### C BC ####[facility] Fascycfonp8639 [place] [id number]. Garima Heraclio D-DIMERon 03-22-2023 D-DIMER 0.85 mg/L FEU Critically high <=0.59 [facility] Comment on above: Performed By: #### D DIM ####[facility] Qcrpbnpcuk2873 [place] [address]Dr. Garima Pulliam D-DIMER COMMENTS SEE BELOW Normal [...] hospitalization. Performed By: #### D DIM ####[facility] Hayzdhipak[address] [place], [place] [address]Dr. Garima Pulliam PROF CHEM 8 (BAS METB)on Anion gap [Moles/Vol] 6.9 mmol/L Normal [facility] Comment on above: Performed By: #### B SWATCH CUTTER, BMP ####[facility] Lcmgayfafk8605 [place] [address]Dr. Garima Pulliam Calcium [Mass/Vol] 8.9 mg/dL Normal 8.5-10.1 [facility] Comment on above: Performed By: #### B SWATCH CUTTER, BMP ####[facility] Dibksubmgs8856 [place] [address]Dr. Garima Pulliam Chloride [Moles/Vol] 101 mmol/L Normal 98-107 [facility] Comment on above: Performed By: #### B SWATCH CUTTER, BMP ####[facility] Qdlzpvlhsi26[address] [place], [place] [address]Dr. Chapisrenu Heraclio CO2 [Moles/Vol] 30.7 mmol/L Normal 21.0-32.0 [facility] Comment on above: Performed By: #### B SWATCH CUTTER, BMP ####[facility] Urwfdojpre487[address] [place], [place] [address]Dr. Garima Pulliam Creatinine [Mass/Vol] 0.82 mg/dL Normal 0.70-1.30 [facility] Comment on above: Performed By: #### B SWATCH CUTTER, BMP ####[facility] Liaxwkzdbq009[address] [place], [place] [address]Dr. Garima Pulliam EGFR-AF GIBRALTARIAN >60 Normal >=60 [facility] Comment on above: Performed By: #### B SWATCH CUTTER, BMP ####[facility] Ohxyigqpqw9[address] [place], [place] [address]Dr. Chapisrenu Heraclio EGFR-NON AF GIBRALTARIAN >60 Normal >=60 [facility] Comment on above: Performed By: #### B SWATCH CUTTER, BMP ####[facility] Hnnxqlybdx764[address] [place], [place] [address]Dr. Garima Pulliam Glucose [Mass/Vol] 339 mg/dL Critically high 74-106 T [facility] Comment on above: Performed By: #### B SWATCH CUTTER, BMP ####[facility] Ogokjirlkv[address] [place], [place] [address]Dr. Garima Pulliam Potassium [Moles/Vol] 3.6 mmol/L Normal 3.5-5.1 [facility] Comment on above: Performed By: #### B SWATCH CUTTER, BMP ####[facility] Shdfhbefqw8[address] [place], [place] [address]Dr. Garima Pulliam Sodium [Moles/Vol] 135 mmol/L Critically low 136-145 [facility] Comment on above: Performed By: #### B SWATCH CUTTER, BMP ####[facility] Griptbvfyp649[address] [place], [place] [address]Dr. Garima Pulliam Urea nitrogen [Mass/Vol] 11.0 mg/dL Normal 7.0-18.0 [facility] Comment on above: Performed By: #### B SWATCH CUTTER, BMP ####[facility] Ujbmrngpuu109[address] [place], [place] [address]Dr. Garima Pulliam Urea nitrogen/Creatinine [Mass ratio] 13.4 mg/mg Normal [facility] Comment on above: Performed By: #### B SWATCH CUTTER, BMP ####[facility] Gkbzkyxnxu[address] [place], [place] [address]Dr. Garima Pulliam US VERONICA DOP LEG BILon 023 US VERONICA DOP LEG BENOIT Normal [facility] BNPon 03-18-2023 Natriuretic peptide B (Bld) [Mass/Vol] 226.0 pg/mL Normal <=900.0 [facility] Comment on above: Performed By: #### B SWATCH CUTTER, BMP ####[facility] Xvmxncvtot[address] [place], [place] [address]Dr. Garima Pulliam CBC AUTO DIFFon 03-18-2023 BASO # 0.0 103/ul Normal 0.0-0.1 [facility] Comment on above: Performed By: #### C BC ####[facility] Jjzamjoumt[address] [place], [place] [address]Dr. Garima Heraclio Basophils/100 WBC (Bld) 0.2 % Normal 0.2-2.0 [facility] Comment on above: Performed By: #### C BC ####[facility] Yihybnzygo8[address] [place], [place] [address]Dr. Garima Pulliam EO # 0.3 103/ul Normal 0.0-0.7 [facility] Comment on above: Performed By: #### C BC ####[facility] Liayzkfpvn[address] [place], [place] [address]Dr. Garima Heraclio Eosinophils/100 WBC (Bld) 2.5 % Normal 0.9-7.0 [facility] Comment on above: Performed By: #### C BC ####[facility] Xobbbscimh120[address] [place], [place] [address]Dr. Garima Heraclio Erythrocyte distribution width (RBC) [Ratio] 13.2 % Normal 11.0-15.0 [facility] Comment on above: Performed By: #### C BC ####[facility] Rllxrdoydb2309 [place] [address]DrAdalberto Pulliam Hematocrit (Bld) [Volume fraction] 45.8 % Normal 42.0-54.0 [facility] Comment on above: Performed By: #### C BC ####[facility] Qscahuoiiy0262 [place] [address]DrAdalberto Pulliam Hemoglobin (Bld) [Mass/Vol] 15.3 g/dL Normal 14.0-18.0 [facility] Comment on above: Performed By: #### C BC ####[facility] Atmxaanmbq[address] [place], [place] [address]DrAdalberto Pulliam IG # 0.02 10e3/ul Normal 0.00-0.03 [facility] Comment on above: Performed By: #### C BC ####[facility] Idqkwfaums[address] [place], [place] [address]DrAdalberto Pulliam IG % 0.2 % Normal 0.0-0.5 [facility] Comment on above: Performed By: #### C BC ####[facility] Qmrnirfrdv[address] [place], [place] [address]DrAdalberto Pulliam LYMPH # 1.8 103/ul Normal 1.2-3.8 [facility] Comment on above: Performed By: #### C BC ####[facility] Vzuxhmxfvy02[address] [place], [place] [address]DrAdalberto Pulliam Lymphocytes/100 WBC (Bld) 18.3 % Critically low 20.5-60.0 [facility] Comment on above: Performed By: #### C BC ####[facility] Akqvlmhhpf[address] [place], [place] [address]DrAdalberto Pulliam MANUAL DIFF REQ NO Normal [facility] Comment on above: Performed By: #### C BC ####[facility] Nakqrkgjxk2520 [place] [address]DrAdalberto Pulliam MCH (RBC) [Entitic mass] 30.5 pg Normal 25.9-34.0 [facility] Comment on above: Performed By: #### C BC ####[facility] Uvkjyzbfpm8980 [place] [address]DrAdalberto Pulliam MCHC (RBC) [Mass/Vol] 33.4 g/dL Normal 29.9-35.2 [facility] Comment on above: Performed By: #### C BC ####[facility] Qbhqqsczzm3515 [place] [address]DrAdalberto Pulliam MCV (RBC) [Entitic vol] 91.2 fL Normal 80.0-94.0 [facility] Comment on above: Performed By: #### C BC ####[facility] Oubpeptwua22[address] [place], [place] [address]DrAdalberto Pulliam MONO # 0.8 103/ul Normal 0.3-0.8 [facility] Comment on above: Performed By: #### C BC ####[facility] Hffvzecpes[address] [place], [place] [address]DrAdalberto Pulliam Monocytes/100 WBC (Bld) 7.6 % Normal 1.7-12.0 [facility] Comment on above: Performed By: #### C BC ####[facility] Hkfxenovcy[address] [place], [place] [address]DrAdalberto Pulliam NEUT # 7.0 103/ul Critically high 1.4-6.5 [facility] Comment on above: Performed By: #### C BC ####[facility] Cigkdrouij[address] [place], [place] [address]DrAdalberto Pulliam Neutrophils/100 WBC (Bld) 71.2 % Normal 43.0-75.0 [facility] Comment on above: Performed By: #### C BC ####[facility] Bldkxgurul854[address] [place], [place] [address]DrAdalberto Pulliam Platelet mean volume (Bld) [Entitic vol] 8.9 fL Critically low 9.5-13.5 [facility] Comment on above: Performed By: #### C BC ####[facility] Nphuwqhvdr[address] [place], [place] [address]DrAdalberto Pulliam PLT 217 103/ul Normal 150-450 [facility] Comment on above: Performed By: #### C BC ####[facility] Cutdqhchdt027[address] [place] [address]Dr. Garima Heraclio RBC 5.02 106/ul Normal 4.70-6.10 [facility] Comment on above: Performed By: #### C BC ####[facility] Ycfpjnimiq[address] [place], [place] [address]Dr. Garima Pulliam WBC 9.8 103/ul Normal 4.0-11.0 [facility] Comment on above: Performed By: #### C BC ####[facility] Hvwdpbcyru[address] [place], [place] [address]Dr. Garima Heraclio CRPon 03-18-2023 CRP 0.1 mg/dL Normal <=1.0 [facility] Comment on above: Performed By: #### C RP ####[facility] Vcfwofsebe[address] [place], [place] [address]Dr. Garima Heraclio PROF CHEM 8 (BAS METB)on Anion gap [Moles/Vol] 10.4 mmol/L Normal [facility] Comment on above: Performed By: #### B SWATCH CUTTER, BMP ####[facility] Aoxfkworuz[address] [place], [place] [address]Dr. Garima Heraclio Calcium [Mass/Vol] 8.8 mg/dL Normal 8.5-10.1 [facility] Comment on above: Performed By: #### B SWATCH CUTTER, BMP ####[facility] Queezyhfcr[address] [place], [place] [address]Dr. Garima Heraclio Chloride [Moles/Vol] 97 mmol/L Critically low 98-107 [facility] Comment on above: Performed By: #### B SWATCH CUTTER, BMP ####[facility] Kcjcyzrism[address] [place], [place] [address]Dr. Garima Pulliam CO2 [Moles/Vol] 31.2 mmol/L Normal 21.0-32.0 [facility] Comment on above: Performed By: #### B SWATCH CUTTER, BMP ####[facility] Krrgqkjghj[address] [place], [place] [address]Dr. Garima Pulliam Creatinine [Mass/Vol] 0.91 mg/dL Normal 0.70-1.30 [facility] Comment on above: Performed By: #### B SWATCH CUTTER, BMP ####[facility] Cgbmpmirja1629 [place] [address]Dr. Garima Pulliam EGFR-AF GIBRALTARIAN >60 Normal >=60 [facility] Comment on above: Performed By: #### B SWATCH CUTTER, BMP ####[facility] Jgdcxqjywr3087 [place] [id number]. Garima Pulliam EGFR-NON AF GIBRALTARIAN >60 Normal >=60 [facility] Comment on above: Performed By: #### B SWATCH CUTTER, BMP ####[facility] Ioqglejoer3642 [place] [address]Dr. Garima Pulliam Glucose [Mass/Vol] 315 mg/dL Critically high 74-106 T [facility] Comment on above: Performed By: #### B SWATCH CUTTER, BMP ####[facility] Lzomlsaagl3973 [place] [address]Dr. Garima Pulliam Potassium [Moles/Vol] 3.6 mmol/L Normal 3.5-5.1 [facility] Comment on above: Performed By: #### B SWATCH CUTTER, BMP ####[facility] Uhaxmthesi3546 [place] [address]Dr. Garima Pulliam Sodium [Moles/Vol] 135 mmol/L Critically low 136-145 [facility] Comment on above: Performed By: #### B SWATCH CUTTER, BMP ####[facility] Pszawiilpz1560 [place] [address]Dr. Garima Pulliam Urea nitrogen [Mass/Vol] 7.0 mg/dL Normal 7.0-18.0 [facility] Comment on above: Performed By: #### B SWATCH CUTTER, BMP ####[facility] Ehifdvomiq4958 [place] [address]Dr. Garima Pulliam Urea nitrogen/Creatinine [Mass ratio] 7.7 mg/mg Normal [facility] Comment on above: Performed By: #### B SWATCH CUTTER, BMP ####[facility] Stjihmjcdt5484 [place] [address]Dr. Garima Pulliam SED RATE WESTERGRENon 2022 SED RATE 8 mm/hr Normal <=20 [facility] Comment on above: Performed By: #### S EDR ####[facility] Rjgtmdflrw[address] [place], [place] [address]Dr. Garima Pulliam BNPon 03-16-2023 Natriuretic peptide B (Bld) [Mass/Vol] 241.0 pg/mL Normal <=900.0 [facility] Comment on above: Performed By: #### B SWATCH CUTTER, BMP, HSTROPN ####[facility] Drfxuatuiv994[address] [place], [place] [address]Dr. Garima Heraclio CBC AUTO DIFFon 03-16-2023 BASO # 0.0 103/ul Normal 0.0-0.1 [facility] Comment on above: Performed By: #### C BC ####[facility] Elrthykuex76[address] [place], [place] [address]Dr. Chapisrenu Pulliam Basophils/100 WBC (Bld) 0.2 % Normal 0.2-2.0 [facility] Comment on above: Performed By: #### C BC ####[facility] [address]fjfsosynw[address] [place], [place] [address]Dr. Garima Pulliam EO # 0.2 103/ul Normal 0.0-0.7 [facility] Comment on above: Performed By: #### C BC ####[facility] Iarxlzhypm[address] [place], [place] [address]Dr. Chapisrenu Pulliam Eosinophils/100 WBC (Bld) 2.7 % Normal 0.9-7.0 [facility] Comment on above: Performed By: #### C BC ####[facility] Cedsdjzquu[address] [place], [place] [address]Dr. Garima Pulliam Erythrocyte distribution width (RBC) [Ratio] 13.1 % Normal 11.0-15.0 [facility] Comment on above: Performed By: #### C BC ####[facility] Ukbxjaqsso[address] [place], [place] [address]Dr. Garima Pulliam Hematocrit (Bld) [Volume fraction] 41.8 % Critically low 42.0-54.0 [facility] Comment on above: Performed By: #### C BC ####[facility] Czqgbnuyue14[address] [place] [address]Dr. Garima Pulliam Hemoglobin (Bld) [Mass/Vol] 14.0 g/dL Normal 14.0-18.0 [facility] Comment on above: Performed By: #### C BC ####[facility] Vumxflqqcr[address]43 [place] [address]Dr. Garima Pulliam IG # 0.03 10e3/ul Normal 0.00-0.03 [facility] Comment on above: Performed By: #### C BC ####[facility] Yvmdtoueat8[address] [place] [address]Dr. Garima Pulliam IG % 0.3 % Normal 0.0-0.5 [facility] Comment on above: Performed By: #### C BC ####[facility] Vrvfchlwtp[address] [place], [place] [address]Dr. Chapisrenu Pulliam LYMPH # 2.1 103/ul Normal 1.2-3.8 [facility] Comment on above: Performed By: #### C BC ####[facility] Pibsmtgwqd[address] [place], [place] [address]Dr. Chapisrenu Pulliam Lymphocytes/100 WBC (Bld) 24.2 % Normal 20.5-60.0 [facility] Comment on above: Performed By: #### C BC ####[facility] [address]cownvoiy[address] [place] [address]Dr. Garima Pulliam MANUAL DIFF REQ NO Normal [facility] Comment on above: Performed By: #### C BC ####[facility] [address]pr[address] [place] [address]Dr. Garima Pulliam MCH (RBC) [Entitic mass] 30.2 pg Normal 25.9-34.0 [facility] Comment on above: Performed By: #### C BC ####[facility] Oqkigoegsa[address] [place] [address]Dr. Garima Pulliam MCHC (RBC) [Mass/Vol] 33.5 g/dL Normal 29.9-35.2 [facility] Comment on above: Performed By: #### C BC ####[facility] Connlbrobq[address] [place] [id number]. Garima Pulliam MCV (RBC) [Entitic vol] 90.1 fL Normal 80.0-94.0 [facility] Comment on above: Performed By: #### C BC ####[facility] Crccycyifc27[address] [place] [id number]. Garima Pulliam MONO # 0.6 103/ul Normal 0.3-0.8 [facility] Comment on above: Performed By: #### C BC ####[facility] Osoopfdmol[address] [place] [address]Dr. Garima Heraclio Monocytes/100 WBC (Bld) 7.4 % Normal 1.7-12.0 [facility] Comment on above: Performed By: #### C BC ####[facility] Vwbvbsnktv[address] [place], [place] [address]Dr. Garima Pulliam NEUT # 5.6 103/ul Normal 1.4-6.5 [facility] Comment on above: Performed By: #### C BC ####[facility] [address]wtdewvzf[address] [place], [place] [address]Dr. Garima Heraclio Neutrophils/100 WBC (Bld) 65.2 % Normal 43.0-75.0 [facility] Comment on above: Performed By: #### C BC ####[facility] Jwphddxrkh1049 [place] [id number]. Garima Heraclio Platelet mean volume (Bld) [Entitic vol] 8.7 fL Critically low 9.5-13.5 [facility] Comment on above: Performed By: #### C BC ####[facility] [address] [place], [place] [address]Dr. Garima Heraclio PLT 195 103/ul Normal 150-450 [facility] Comment on above: Performed By: #### C BC ####[facility] Gvgaqyffag8[address] [place] [id number]. Garima Pulliam RBC 4.64 106/ul Critically low 4.70-6.10 [facility] Comment on above: Performed By: #### C BC ####[facility] Wypxizmtdz55[address] [place] [address]Dr. Garima Pulliam WBC 8.6 103/ul Normal 4.0-11.0 [facility] Comment on above: Performed By: #### C BC ####[facility] Vydmcjdkbt8[address] [place] [address]Dr. Graima Pulliam PROF CHEM 8 (BAS METB)on Anion gap [Moles/Vol] 6.7 mmol/L Normal [facility] Comment on above: Performed By: #### B SWATCH CUTTER, BMP, HSTROPN ####[facility] Txwiackvjz95[address] [place] [address]Dr. Garima Pulliam Calcium [Mass/Vol] 8.8 mg/dL Normal 8.5-10.1 [facility] Comment on above: Performed By: #### B SWATCH CUTTER, BMP, HSTROPN ####[facility] Ffbkiocnxu227[address] [place], [place] [address]Dr. Garima Pulliam Chloride [Moles/Vol] 106 mmol/L Normal 98-107 [facility] Comment on above: Performed By: #### B SWATCH CUTTER, BMP, HSTROPN ####[facility] Mjowzridrg64[address] [place], [place] [address]Dr. Garima Pulliam CO2 [Moles/Vol] 31.4 mmol/L Normal 21.0-32.0 [facility] Comment on above: Performed By: #### B SWATCH CUTTER, BMP, HSTROPN ####[facility] Kdhqirqspe[address] [place], [place] [address]Dr. Garima Pulliam Creatinine [Mass/Vol] 0.75 mg/dL Normal 0.70-1.30 [facility] Comment on above: Performed By: #### B SWATCH CUTTER, BMP, HSTROPN ####[facility] Puzwwbnoll[address] [place] [address]Dr. Garima Pulliam EGFR-AF GIBRALTARIAN >60 Normal >=60 [facility] Comment on above: Performed By: #### B SWATCH CUTTER, BMP, HSTROPN ####[facility] Pqlpvjquxy59[address] [place] [address]Dr. Garima Pulliam EGFR-NON AF GIBRALTARIAN >60 Normal >=60 [facility] Comment on above: Performed By: #### B SWATCH CUTTER, BMP, HSTROPN ####[facility] Koijqaxnpv2896 [place] [address]Dr. Garima Pulliam Glucose [Mass/Vol] 161 mg/dL Critically high 74-106 T [facility] Comment on above: Performed By: #### B SWATCH CUTTER, BMP, HSTROPN ####[facility] Zulwqcvxki0089 [place] [address]Dr. Garima Pulliam Potassium [Moles/Vol] 4.1 mmol/L Normal 3.5-5.1 [facility] Comment on above: Performed By: #### B SWATCH CUTTER, BMP, HSTROPN ####[facility] Kxochtimwh7569 [place] [address]Dr. Garima Pulliam Sodium [Moles/Vol] 140 mmol/L Normal 136-145 [facility] Comment on above: Performed By: #### B SWATCH CUTTER, BMP, HSTROPN ####[facility] Hvtibqqqff5340 [place] [address]Dr. Garima Pulliam Urea nitrogen [Mass/Vol] 7.0 mg/dL Normal 7.0-18.0 [facility] Comment on above: Performed By: #### B SWATCH CUTTER, BMP, HSTROPN ####[facility] Quyhtygwis55[address] [place] [address]Dr. Garima Pulliam Urea nitrogen/Creatinine [Mass ratio] 9.3 mg/mg Normal [facility] Comment on above: Performed By: #### B SWATCH CUTTER, BMP, HSTROPN ####[facility] Tykhkyyshy[address] [place] [address]Dr. Garima Pulliam TROPONIN, HIGH SENSITIVITYon 03-16-2023 HSTROP 9.7 pg/mL Normal 4.0-76.1 [facility] Comment on above: Result Comment: CUT- OFF POINTS HAVE BEEN ESTABLISHED BASED ON THE FOURTH UNIVERSAL DEFINITIONS OF MYOCARDIALINFARCTION. THE UPPER REFERENCE LIMIT (URL) OF TROPONIN, DEFINED THE 99TH PERCENTILE OFcTnI DISTRIBUTION IN A REFERENCE POPULATION, HAS BEEN CONFIRMED THE DECISION THRESHOLDFOR MD DIAGNOSIS. Performed By: #### B SWATCH CUTTER, BMP, HSTROPN ####[facility] Imftltqqyq4139 [place] [address]Dr. Garima Pulliam XR CHEST 1 Von 03-16-2023 XR CHEST 1 V Normal [facility] BNPon 03-06-2023 Natriuretic peptide B (Bld) [Mass/Vol] 111.0 pg/mL Normal <=900.0 [facility] Comment on above: Performed By: #### C MP, BNP, CK ####[facility] Ibkymizijs4[address] [place] [address]Dr. Chapisrenu Pulliam CBC AUTO DIFFon 03-06-2023 BASO # 0.0 103/ul Normal 0.0-0.1 [facility] Comment on above: Performed By: #### C BC ####[facility] Czeslgkmhy[address] [place], [place] [address]Dr. Garima Pulliam Basophils/100 WBC (Bld) 0.2 % Normal 0.2-2.0 [facility] Comment on above: Performed By: #### C BC ####[facility] Uchkcyemww[address] [place], [place] [address]Dr. Garima Pulliam EO # 0.3 103/ul Normal 0.0-0.7 [facility] Comment on above: Performed By: #### C BC ####[facility] Upmnunmryb[address] [place], [place] [address]Dr. Garima Pulliam Eosinophils/100 WBC (Bld) 3.5 % Normal 0.9-7.0 [facility] Comment on above: Performed By: #### C BC ####[facility] Rpstxnyvek85[address] [place], [place] [address]Dr. Garima Pulliam Erythrocyte distribution width (RBC) [Ratio] 13.3 % Normal 11.0-15.0 [facility] Comment on above: Performed By: #### C BC ####[facility] Bsqmgrjtnh576[address] [place], [place] [address]Dr. Garima Pulliam Hematocrit (Bld) [Volume fraction] 43.7 % Normal 42.0-54.0 [facility] Comment on above: Performed By: #### C BC ####[facility] Njkpsywpux7945 [place] [address]Dr. Garima Pulliam Hemoglobin (Bld) [Mass/Vol] 14.7 g/dL Normal 14.0-18.0 [facility] Comment on above: Performed By: #### C BC ####[facility] Xjcyumicry3566 [place] [address]Dr. Chapisrenu Heraclio IG # 0.03 10e3/ul Normal 0.00-0.03 [facility] Comment on above: Performed By: #### C BC ####[facility] Zwobxitjhm[address] [place], [place] [address]Dr. Garima Pulliam IG % 0.4 % Normal 0.0-0.5 [facility] Comment on above: Performed By: #### C BC ####[facility] Ktdfppbirg[address] [place], [place] [address]Dr. Garima Pulliam LYMPH # 2.0 103/ul Normal 1.2-3.8 [facility] Comment on above: Performed By: #### C BC ####[facility] Hysvhmmswd[address] [place], [place] [address]DrAdalberto Pulliam Lymphocytes/100 WBC (Bld) 23.7 % Normal 20.5-60.0 [facility] Comment on above: Performed By: #### C BC ####[facility] Jourxpmzew[address] [place] [address]Dr. Garima Pulliam MANUAL DIFF REQ NO Normal [facility] Comment on above: Performed By: #### C BC ####[facility] Jrmvsspndw7646 [place] [id number] Pulliam MCH (RBC) [Entitic mass] 30.1 pg Normal 25.9-34.0 [facility] Comment on above: Performed By: #### C BC ####[facility] Afredjdeld3414 [place] [id number]. Garima Pulliam MCHC (RBC) [Mass/Vol] 33.6 g/dL Normal 29.9-35.2 [facility] Comment on above: Performed By: #### C BC ####[facility] Vhplftxwxe1273 [place] [address]Dr. Garima Heraclio MCV (RBC) [Entitic vol] 89.4 fL Normal 80.0-94.0 [facility] Comment on above: Performed By: #### C BC ####[facility] Tqytiilgih9775 [place] [address]Dr. Garima Pulliam MONO # 0.8 103/ul Normal 0.3-0.8 [facility] Comment on above: Performed By: #### C BC ####[facility] Xkmdplmhoi4[address] [place] [address]Dr. Garima Pulliam Monocytes/100 WBC (Bld) 9.0 % Normal 1.7-12.0 [facility] Comment on above: Performed By: #### C BC ####[facility] Kwuduyqpeb[address] [place], [place] [address]Dr. Garima Pulliam NEUT # 5.4 103/ul Normal 1.4-6.5 [facility] Comment on above: Performed By: #### C BC ####[facility] Ekgklwijpt[address] [place], [place] [address]Dr. Garima Pulliam Neutrophils/100 WBC (Bld) 63.2 % Normal 43.0-75.0 [facility] Comment on above: Performed By: #### C BC ####[facility] Qnnddcmyqu[address] [place], [place] [address]Dr. Garima Pulliam Platelet mean volume (Bld) [Entitic vol] 9.0 fL Critically low 9.5-13.5 [facility] Comment on above: Performed By: #### C BC ####[facility] Ljnpwjtiun[address] [place], [place] [address]Dr. Garima Pulliam PLT 218 103/ul Normal 150-450 [facility] Comment on above: Performed By: #### C BC ####[facility] Tetdplxudm4232 [place] [id number]. Garima Pulliam RBC 4.89 106/ul Normal 4.70-6.10 [facility] Comment on above: Performed By: #### C BC ####[facility] Kuqwxsxtek2844 [place] [address]Dr. Garima Pulliam WBC 8.5 103/ul Normal 4.0-11.0 [facility] Comment on above: Performed By: #### C BC ####[facility] Dgeacxilvt1548 [place] [address]Dr. Garima Pulliam CPKon 03-06-2023 CK [Catalytic activity/Vol] 191 U/L Normal 39-308 [facility] Comment on above: Performed By: #### C MP, BNP, CK ####[facility] Guxdgzihhd14[address] [place] [address]Dr. Garima Pulliam PROF 14(COMP METB)on 023 Albumin [Mass/Vol] 3.6 g/dL Normal 3.4-5.0 [facility] Comment on above: Performed By: #### C MP, BNP, CK ####[facility] Vwroozukwl[address] [place] [address]Dr. Garima Pulliam Albumin/Globulin [Mass ratio] 1.2 {ratio} Normal [facility] Comment on above: Performed By: #### C MP, BNP, CK ####[facility] Pwrudomcec9862 [place] [address]Dr. Garima Pulliam ALP [Catalytic activity/Vol] 91 U/L Normal 46-116 [facility] Comment on above: Performed By: #### C MP, BNP, CK ####[facility] Pioobwvnzf4197 [place] [address]Dr. Garima Pulliam ALT [Catalytic activity/Vol] 33 U/L Normal 16-63 [facility] Comment on above: Performed By: #### C MP, BNP, CK ####[facility] Bexitejkky5382 [place] [address]Dr. Garima Pulliam Anion gap [Moles/Vol] 10.3 mmol/L Normal [facility] Comment on above: Performed By: #### C MP, BNP, CK ####[facility] Hcfeqsyvft6756 [place] [address]Dr. Garima Pulliam AST [Catalytic activity/Vol] 17 U/L Normal 15-37 [facility] Comment on above: Performed By: #### C MP, BNP, CK ####[facility] Nrdcmxjezt6548 [place] [address]Dr. Garima Pulliam Bilirubin [Mass/Vol] 0.4 mg/dL Normal 0.2-1.0 [facility] Comment on above: Performed By: #### C MP, BNP, CK ####[facility] Dtgejozspd8666 [place] [address]Dr. Garima Pulliam Calcium [Mass/Vol] 9.1 mg/dL Normal 8.5-10.1 [facility] Comment on above: Performed By: #### C MP, BNP, CK ####[facility] Krededpkia7708 [place] [address]Dr. Garima Pulliam Chloride [Moles/Vol] 102 mmol/L Normal 98-107 [facility] Comment on above: Performed By: #### C MP, BNP, CK ####[facility] Wertfhybol3474 [place] [address]Dr. Garima Pulliam CO2 [Moles/Vol] 29.7 mmol/L Normal 21.0-32.0 [facility] Comment on above: Performed By: #### C MP, BNP, CK ####[facility] Lhopweklui6022 [place] [address]Dr. Garima Pulliam Creatinine [Mass/Vol] 0.79 mg/dL Normal 0.70-1.30 [facility] Comment on above: Performed By: #### C MP, BNP, CK ####[facility] Hqdhwxwqxg1132 [place] [address]Dr. Garima Pulliam EGFR-AF GIBRALTARIAN >60 Normal >=60 [facility] Comment on above: Performed By: #### C MP, BNP, CK ####[facility] Tnlsqktpnp4620 [place] [address]Dr. Garima Pulliam EGFR-NON AF GIBRALTARIAN >60 Normal >=60 [facility] Comment on above: Performed By: #### C MP, BNP, CK ####[facility] Luezfwobws5794 [place] [address]Dr. Garima Pulliam Globulin (S) [Mass/Vol] 3.0 g/dL Normal [facility] Comment on above: Performed By: #### C MP, BNP, CK ####[facility] Eygrobejli7550 [place] [address]Dr. Garima Pulliam Glucose [Mass/Vol] 202 mg/dL Critically high 74-106 [facility] Comment on above: Performed By: #### C MP, BNP, CK ####[facility] Epyeebxbyw2887 [place] [address]Dr. Garima Pulliam Potassium [Moles/Vol] 4.0 mmol/L Normal 3.5-5.1 [facility] Comment on above: Performed By: #### C MP, BNP, CK ####[facility] Nakmqqmjnm3659 [place] [address]Dr. Garima Pulliam Protein [Mass/Vol] 6.6 g/dL Normal 6.4-8.2 [facility] Comment on above: Performed By: #### C MP, BNP, CK ####[facility] Phwyabolvu92[address] [place], [place] [address]Dr. Garima Pulliam Sodium [Moles/Vol] 138 mmol/L Normal 136-145 [facility] Comment on above: Performed By: #### C MP, BNP, CK ####[facility] Mhizknowsq9[address] [place], [place] [address]Dr. Garima Pulliam Urea nitrogen [Mass/Vol] 10.0 mg/dL Normal 7.0-18.0 [facility] Comment on above: Performed By: #### C MP, BNP, CK ####[facility] Cwyiudtvxm0241 [place] [address]Dr. Garima Pulliam Urea nitrogen/Creatinine [Mass ratio] 12.7 mg/mg Normal [facility] Comment on above: Performed By: #### C MP, BNP, CK ####[facility] Rdtcxcehzn7799 [place] [address]Dr. Garima Pulliam US VERONICA DOP LEG BILon 023 US VERONICA DOP LEG BENOIT Normal [facility] CBC AUTO DIFFon 01-13-2023 BASO # 0.0 103/ul Normal 0.0-0.1 [facility] Comment on above: Performed By: #### C BC ####[facility] Snzhxvhwkm0270 [place] [id number]. Chapisrenu Pulliam Basophils/100 WBC (Bld) 0.0 % Critically low 0.2-2.0 [facility] Comment on above: Performed By: #### C BC ####[facility] Defsenqrqu4883 [place] [address]Dr. Garima Pulliam EO # 0.0 103/ul Normal 0.0-0.7 [facility] Comment on above: Performed By: #### C BC ####[facility] Wngfbkjohc[address] [place], [place] [address]Dr. Garima Pulliam Eosinophils/100 WBC (Bld) 0.0 % Critically low 0.9-7.0 [facility] Comment on above: Performed By: #### C BC ####[facility] Fsxaftslpl7721 [place] [address]Dr. Garima Pulliam Erythrocyte distribution width (RBC) [Ratio] 13.2 % Normal 11.0-15.0 [facility] Comment on above: Performed By: #### C BC ####[facility] Urfirqxkjm23[address] [place], [place] [address]Dr. Garima Pulliam Hematocrit (Bld) [Volume fraction] 46.7 % Normal 42.0-54.0 [facility] Comment on above: Performed By: #### C BC ####[facility] Myaussloup[address] [place], [place] [address]Dr. Garima Pulliam Hemoglobin (Bld) [Mass/Vol] 15.6 g/dL Normal 14.0-18.0 [facility] Comment on above: Performed By: #### C BC ####[facility] Svttpgehba[address] [place], [place] [address]Dr. Garima Pulliam IG # 0.01 10e3/ul Normal 0.00-0.03 [facility] Comment on above: Performed By: #### C BC ####[facility] Nmbkibeafo4446 [place] [id number]. Garima Pulliam IG % 0.2 % Normal 0.0-0.5 [facility] Comment on above: Performed By: #### C BC ####[facility] Mpyppkacnm1293 [place] [id number]. Garima Pulliam LYMPH # 0.8 103/ul Critically low 1.2-3.8 [facility] Comment on above: Performed By: #### C BC ####[facility] Yigmcvgrmi8365 [place] [id number]. Garima Pulliam Lymphocytes/100 WBC (Bld) 12.7 % Critically low 20.5-60.0 [facility] Comment on above: Performed By: #### C BC ####[facility] Ftkogynkxp1491 [place] [address]Dr. Garima Pulliam MANUAL DIFF REQ NO Normal [facility] Comment on above: Performed By: #### C BC ####[facility] Zuwauiwdoc9183 [place] [id number]. Garima Pulliam MCH (RBC) [Entitic mass] 30.2 pg Normal 25.9-34.0 [facility] Comment on above: Performed By: #### C BC ####[facility] Cojqectsbh7968 [place] [id number]. Garima Pulliam MCHC (RBC) [Mass/Vol] 33.4 g/dL Normal 29.9-35.2 [facility] Comment on above: Performed By: #### C BC ####[facility] Siblxgvvuo1496 [place] [id number]. Garima Pulliam MCV (RBC) [Entitic vol] 90.3 fL Normal 80.0-94.0 [facility] Comment on above: Performed By: #### C BC ####[facility] Vnljbxmvzd6946 [place] [id number]. Garima Heraclio MONO # 0.1 103/ul Critically low 0.3-0.[address] [facility] Comment on above: Performed By: #### C BC ####[facility] Jifzrsbskl1921 [place] [id number]. Garima Pulliam Monocytes/100 WBC (Bld) 0.9 % Critically low 1.7-12.0 [facility] Comment on above: Performed By: #### C BC ####[facility] Fyqcdaktik0348 [place] [id number]. Garima Pulliam NEUT # 5.6 103/ul Normal 1.4-6.5 [facility] Comment on above: Performed By: #### C BC ####[facility] Tdafbederb9612 [place] [id number]. Garima Pulliam Neutrophils/100 WBC (Bld) 86.2 % Critically high 43.0-75.0 [facility] Comment on above: Performed By: #### C BC ####[facility] Cfamjjkofu1045 [place] [address]Dr. Garima Pulliam Platelet mean volume (Bld) [Entitic vol] 9.1 fL Critically low 9.5-13.5 [facility] Comment on above: Performed By: #### C BC ####[facility] Oeuinsaqex[address] [place], [place] [address]Dr. Garima Pulliam PLT 169 103/ul Normal 150-450 [facility] Comment on above: Performed By: #### C BC ####[facility] Xkfqfcmngh[address] [place], [place] [address]Dr. Garima Pulliam RBC 5.17 106/ul Normal 4.70-6.10 [facility] Comment on above: Performed By: #### C BC ####[facility] Llxjmyvwvi[address] [place], [place] [address]Dr. Garima Pulliam WBC 6.5 103/ul Normal 4.0-11.0 [facility] Comment on above: Performed By: #### C BC ####[facility] Zelqkyfhxr356[address] [place], [place] [address]Dr. Garima Pulliam D-DIMERon 01-13-2023 D-DIMER 0.41 mg/L FEU Normal <=0.59 [facility] Comment on above: Performed By: #### D DIM ####[facility] Fxjurqhtze3114 [place] [address]Dr. Garima Pulliam D-DIMER COMMENTS SEE BELOW Normal [facility] Comment on above: Result Comment: [...] hospitalization. Performed By: #### D DIM ####[facility] Zcrjfxznjh125[address] [place], [place] [address]Dr. Garima Pulliam PROF 14(COMP METB)on 023 Albumin [Mass/Vol] 3.4 g/dL Normal 3.4-5.0 [facility] Comment on above: Performed By: #### C MP ####[facility] Gjyogqywgy[address] [place], [place] [address]Dr. Garima Pulliam Albumin/Globulin [Mass ratio] 1.3 {ratio} Normal [facility] Comment on above: Performed By: #### C MP ####[facility] Amyqxvuabe614[address] [place], [place] [address]Dr. Garima Pulliam ALP [Catalytic activity/Vol] 83 U/L Normal 46-116 [facility] Comment on above: Performed By: #### C MP ####[facility] Bmotfejpcl719[address] [place], [place] [address]Dr. Garima Pulliam ALT [Catalytic activity/Vol] 25 U/L Normal 16-63 [facility] Comment on above: Performed By: #### C MP ####[facility] Lhxblofjby7059 [place] [address]Dr. Garima Pulliam Anion gap [Moles/Vol] 14.5 mmol/L Normal [facility] Comment on above: Performed By: #### C MP ####[facility] Uqqcfsvxfb54[address] [place], [place] [address]Dr. Garima Pulliam AST [Catalytic activity/Vol] 19 U/L Normal 15-37 [facility] Comment on above: Performed By: #### C MP ####[facility] Ufychlymzv85[address] [place], [place] [address]Dr. Garima Pulliam Bilirubin [Mass/Vol] 0.4 mg/dL Normal 0.2-1.0 [facility] Comment on above: Performed By: #### C MP ####[facility] Cwzpusdxfl[address] [place], [place] [address]Dr. Garima Pulliam Calcium [Mass/Vol] 8.7 mg/dL Normal 8.5-10.1 [facility] Comment on above: Performed By: #### C MP ####[facility] Xifjgvmzcy510[address] [place], [place] [address]Dr. Garima Pulliam Chloride [Moles/Vol] 104 mmol/L Normal 98-107 [facility] Comment on above: Performed By: #### C MP ####[facility] Usynjwmllr195[address] [place], [place] [address]Dr. Garima Pulliam CO2 [Moles/Vol] 24.5 mmol/L Normal 21.0-32.0 [facility] Comment on above: Performed By: #### C MP ####[facility] Nxyyprrryt88[address] [place], [place] [address]Dr. Garima Pulliam Creatinine [Mass/Vol] 0.70 mg/dL Normal 0.70-1.30 [facility] Comment on above: Performed By: #### C MP ####[facility] Pzfktzdqek7[address] [place], [place] [address]Dr. Garima Heraclio EGFR-AF GIBRALTARIAN >60 Normal >=60 [facility] Comment on above: Performed By: #### C MP ####[facility] Mjfwkroxwl[address] [place], [place] [address]Dr. Chapisrenu Heraclio EGFR-NON AF GIBRALTARIAN >60 Normal >=60 [facility] Comment on above: Performed By: #### C MP ####[facility] Pcgvhypqru[address] [place], [place] [address]Dr. Chapisrenu Pulliam Globulin (S) [Mass/Vol] 2.6 g/dL Normal [facility] Comment on above: Performed By: #### C MP ####[facility] Iotvssnnao1084 [place] [address]Dr. Garima Pulliam Glucose [Mass/Vol] 196 mg/dL Critically high 74-106 [facility] Comment on above: Performed By: #### C MP ####[facility] Ewyrgogdbl7174 [place] [address]Dr. Garima Pulliam Potassium [Moles/Vol] 4.0 mmol/L Normal 3.5-5.1 [facility] Comment on above: Performed By: #### C MP ####[facility] Duiudpgndg7125 [place] [address]Dr. Garima Pulliam Protein [Mass/Vol] 6.0 g/dL Critically low 6.4-8.2 [facility] Comment on above: Performed By: #### C MP ####[facility] Prihxtkvkl[address] [place], [place] [address]Dr. Garima Pulliam Sodium [Moles/Vol] 139 mmol/L Normal 136-145 [facility] Comment on above: Performed By: #### C MP ####[facility] Hofzsrbgxh[address] [place], [place] [address]Dr. Garima Pulliam Urea nitrogen [Mass/Vol] 7.0 mg/dL Normal 7.0-18.0 [facility] [facility] Comment on above: Performed By: #### C MP ####[facility] Ewuzkkvs[address] [place], [place] [address]Dr. Garima Heraclio Urea nitrogen/Creatinine [Mass ratio] 10.0 mg/mg Normal [facility] Comment on above: Performed By: #### C MP ####[facility] Inqfkmyzyh[address] [place], [place] [address]Dr. Garima Heraclio BNPon 01-12-2023 Natriuretic peptide B (Bld) [Mass/Vol] 141.0 pg/mL Normal <=900.0 [facility] Comment on above: Performed By: #### C MP, BNP, HSTROPN ####[facility] Iviewoxwvx[address] [place], [place] [address]Dr. Garima Heraclio CBC AUTO DIFFon 01-12-2023 BASO # 0.0 103/ul Normal 0.0-0.1 [facility] Comment on above: Performed By: #### C BC ####[facility] Edxxlwfwap37[address] [place] [id number]. Garima Heraclio Basophils/100 WBC (Bld) 0.2 % Normal 0.2-2.0 [facility] Comment on above: Performed By: #### C BC ####[facility] Uxevizcptw[address] [place] [address]Dr. Garima Heraclio EO # 0.2 103/ul Normal 0.0-0.7 [facility] Comment on above: Performed By: #### C BC ####[facility] Ddilvledkq69[address] [place] [address]Dr. Garima Heraclio Eosinophils/100 WBC (Bld) 2.7 % Normal 0.9-7.0 [facility] Comment on above: Performed By: #### C BC ####[facility] Pqsctaqnvd[address] [place], [place] [address]Dr. Garima Pulliam Erythrocyte distribution width (RBC) [Ratio] 13.3 % Normal 11.0-15.0 [facility] Comment on above: Performed By: #### C BC ####[facility] Pgehdadvrl[address] [place], [place] [address]Dr. Garima Pulliam Hematocrit (Bld) [Volume fraction] 42.3 % Normal 42.0-54.0 [facility] Comment on above: Performed By: #### C BC ####[facility] Avghloxjur[address] [place], [place] [address]Dr. Garima Pulliam Hemoglobin (Bld) [Mass/Vol] 14.3 g/dL Normal 14.0-18.0 [facility] Comment on above: Performed By: #### C BC ####[facility] Ygtmfhyzcq[address] [place], [place] [address]Dr. Garima Pulliam IG # 0.02 10e3/ul Normal 0.00-0.03 [facility] Comment on above: Performed By: #### C BC ####[facility] Quqwsulwfb6094 [place] [id number]. Garima Pulliam IG % 0.2 % Normal 0.0-0.5 [facility] Comment on above: Performed By: #### C BC ####[facility] Yalxlmmyhh1407 [place] [id number]. Garima Pulliam LYMPH # 2.6 103/ul Normal 1.2-3.8 [facility] Comment on above: Performed By: #### C BC ####[facility] Yeqiobvnba6115 [place] [id number]. Garima Heraclio Lymphocytes/100 WBC (Bld) 29.6 % Normal 20.5-60.0 [facility] Comment on above: Performed By: #### C BC ####[facility] Xlwytffdmu8209 [place] [address]Dr. Garima Heraclio MANUAL DIFF REQ NO Normal [facility] Comment on above: Performed By: #### C BC ####[facility] Cmqfbfxcvo9073 [place] [id number]. Garima Pulliam MCH (RBC) [Entitic mass] 30.2 pg Normal 25.9-34.0 [facility] Comment on above: Performed By: #### C BC ####[facility] Heefbltwnr28[address] [place] [address]Dr. Garima Pulliam MCHC (RBC) [Mass/Vol] 33.8 g/dL Normal 29.9-35.2 [facility] Comment on above: Performed By: #### C BC ####[facility] Bpcultcxrd2453 [place] [id number]. Garima Pulliam MCV (RBC) [Entitic vol] 89.2 fL Normal 80.0-94.0 [facility] Comment on above: Performed By: #### C BC ####[facility] Whnwejkkgo[address] [place], [place] [address]Dr. Chapisrenu Pulliam MONO # 0.7 103/ul Normal 0.3-0.8 [facility] Comment on above: Performed By: #### C BC ####[facility] Bmeuhcelrd8845 [place] [id number]. Garima Pulliam Monocytes/100 WBC (Bld) 8.3 % Normal 1.7-12.0 [facility] Comment on above: Performed By: #### C BC ####[facility] Bjiznxfbxy4707 [place] [id number]. Garima Pulliam NEUT # 5.1 103/ul Normal 1.4-6.5 [facility] Comment on above: Performed By: #### C BC ####[facility] Rhttshrrld6678 [place] [id number]. Garima Pulliam Neutrophils/100 WBC (Bld) 59.0 % Normal 43.0-75.0 [facility] Comment on above: Performed By: #### C BC ####[facility] Oskhpfhggf1722 [place] [address]Dr. Garima Pulliam Platelet mean volume (Bld) [Entitic vol] 8.7 fL Critically low 9.5-13.5 [facility] Comment on above: Performed By: #### C BC ####[facility] Zsbieszrxx3433 [place] [address]Dr. Garima Pulliam PLT 182 103/ul Normal 150-450 [facility] Comment on above: Performed By: #### C BC ####[facility] Hqrgladpes0314 [place] [id number]. Garima Pulliam RBC 4.74 106/ul Normal 4.70-6.10 [facility] Comment on above: Performed By: #### C BC ####[facility] Fxuz[address] [place], [place] [address]Dr. Garima Pulliam WBC 8.7 103/ul Normal 4.0-11.0 [facility] Comment on above: Performed By: #### C BC ####[facility] Bsoauzqjtw[address] [place], [place] [address]Dr. Garima Pulliam Covid-19 PCR (CVDTB)on 12-25 SARS-CoV-2 (COVID-19) RNA MARIE+probe Ql (Unsp spec) Not detected Normal NOT DETECTED [facility] Comment on above: Result Comment: [...] for this test is supported by the [place] of Health and Human Service's declaration that [...] used). Performed By: #### C VDTBH ####[facility] O[address]bztriu[address] [place] [address]Dr. Garima Pulliam PROF 14(COMP METB)on 023 Albumin [Mass/Vol] 3.6 g/dL Normal 3.4-5.0 [facility] Comment on above: Performed By: #### C MP, BNP, HSTROPN ####[facility] Opaqzpiynl59[address] [place] [address]Dr. Garima Pulliam Albumin/Globulin [Mass ratio] 1.5 {ratio} Normal [facility] Comment on above: Performed By: #### C MP, BNP, HSTROPN ####[facility] Enclbzaycl8013 [place] [address]Dr. Graima Pulliam ALP [Catalytic activity/Vol] 79 U/L Normal 46-116 [facility] Comment on above: Performed By: #### C MP, BNP, HSTROPN ####[facility] Gkdmthtoxh9620 [place] [address]Dr. Garima Pulliam ALT [Catalytic activity/Vol] 27 U/L Normal 16-63 [facility] Comment on above: Performed By: #### C MP, BNP, HSTROPN ####[facility] Rpadmcwftc4071 [place] [address]Dr. Garima Pulliam Anion gap [Moles/Vol] 11.7 mmol/L Normal [facility] Comment on above: Performed By: #### C MP, BNP, HSTROPN ####[facility] Aoxfpeudhi0621 [place] [address]Dr. Garima Pulliam AST [Catalytic activity/Vol] 21 U/L Normal 15-37 [facility] Comment on above: Performed By: #### C MP, BNP, HSTROPN ####[facility] Eqaxtfeyol1777 [place] [address]Dr. Garima Pulliam Bilirubin [Mass/Vol] 0.3 mg/dL Normal 0.2-1.0 [facility] Comment on above: Performed By: #### C MP, BNP, HSTROPN ####[facility] Jwglzuwser4885 [place] [address]Dr. Garima Pulliam Calcium [Mass/Vol] 8.9 mg/dL Normal 8.5-10.1 [facility] Comment on above: Performed By: #### C MP, BNP, HSTROPN ####[facility] Nitirqigoz5919 [place] [address]Dr. Garima Pulliam Chloride [Moles/Vol] 107 mmol/L Normal 98-107 [facility] Comment on above: Performed By: #### C MP, BNP, HSTROPN ####[facility] Cqunqxorlo6306 [place] [address]Dr. Garima Pulliam CO2 [Moles/Vol] 26.0 mmol/L Normal 21.0-32.0 [facility] Comment on above: Performed By: #### C MP, BNP, HSTROPN ####[facility] Qmmceosedz2436 [place] [address]Dr. Garima Pulliam Creatinine [Mass/Vol] 0.65 mg/dL Critically low 0.70-1.30 [facility] Comment on above: Performed By: #### C MP, BNP, HSTROPN ####[facility] Pjczeqvoxx7393 [place] [address]Dr. Yilan Pulliam EGFR-AF GIBRALTARIAN >60 Normal >=60 [facility] Comment on above: Performed By: #### C MP, BNP, HSTROPN ####[facility] Izxlhgchgg2394 [place] [address]Dr. Garima Pulliam EGFR-NON AF GIBRALTARIAN >60 Normal >=60 [facility] Comment on above: Performed By: #### C MP, BNP, HSTROPN ####[facility] Bypxvehbwa0383 [place] [address]Dr. Garima Pulliam Globulin (S) [Mass/Vol] 2.4 g/dL Normal [facility] Comment on above: Performed By: #### C MP, BNP, HSTROPN ####[facility] Uvdezosdph[address] [place], [place] [address]Dr. Garima Pulliam Glucose [Mass/Vol] 85 mg/dL Normal 74-106 [facility] Comment on above: Performed By: #### C MP, BNP, HSTROPN ####[facility] Gmousouvzm0329 [place] [address]Dr. Garima Pulliam Potassium [Moles/Vol] 3.7 mmol/L Normal 3.5-5.1 [facility] Comment on above: Performed By: #### C MP, BNP, HSTROPN ####[facility] Hwrfzfdrvo4539 [place] [address]Dr. Garima Pulliam Protein [Mass/Vol] 6.0 g/dL Critically low 6.4-8.2 [facility] Comment on above: Performed By: #### C MP, BNP, HSTROPN ####[facility] Cwwdfsxggo7823 [place] [address]Dr. Garima Pulliam Sodium [Moles/Vol] 141 mmol/L Normal 136-145 [facility] Comment on above: Performed By: #### C MP, BNP, HSTROPN ####[facility] Jshzfmycjx5267 [place] [address]Dr. Garima Pulliam Urea nitrogen [Mass/Vol] 5.0 mg/dL Critically low 7.0-18.0 [facility] Comment on above: Performed By: #### C MP, BNP, HSTROPN ####[facility] Qeimynypfd3419 [place] [address]Dr. Garima Pulliam Urea nitrogen/Creatinine [Mass ratio] 7.7 mg/mg Normal [facility] Comment on above: Performed By: #### C MP, BNP, HSTROPN ####[facility] Cbwnspgdsm6780 [place] [address]Dr. Garima Pulliam PROTIMEon 01-12-2023 INR Coag (PPP) [Relative time] 1.16 {INR} Normal [facility] Comment on above: Performed By: #### P TT, PT ####[facility] Vfofupphhh58[address] [place] [address]Dr. Garima Pulliam INR GUIDELINES SEE BELOW Normal [facility] Comment on above: Result Comment: WESLEY RED INR: 2.0 - 3.0 CONDITIONS NOT LISTED BELOW 2.5 - 3.5 FOR PROSTHETIC HEART VALVE REPLACEMENT 2.5 - 3.5 RECURRENT THROMBOSIS Performed By: #### P TT, PT ####[facility] Avonuqpjlz[address] [place], [place] [address]Dr. Garima Pulliam PT Coag (PPP) [Time] 12.2 s Critically high 9.0-11.6 [facility] Comment on above: Performed By: #### P TT, PT ####[facility] Cavcvloisb0098 [place] [address]Dr. Garima Pulliam PTTon 01-12-2023 aPTT Coag (Bld) [Time] 29.1 s Normal 22.3-36.2 [facility] Comment on above: Performed By: #### P TT, PT ####[facility] Gwcxrwvkrq[address] [place], [place] [address]Dr. Garima Pulliam TROPONIN, HIGH SENSITIVITYon 01-12-2023 HSTROP 10.3 pg/mL Normal 4.0-76.1 [facility] Comment on above: Result Comment: CUT- OFF POINTS HAVE BEEN ESTABLISHED BASED ON THE FOURTH UNIVERSAL DEFINITIONS OF MYOCARDIALINFARCTION. THE UPPER REFERENCE LIMIT (URL) OF TROPONIN, DEFINED THE 99TH PERCENTILE OFcTnI DISTRIBUTION IN A REFERENCE POPULATION, HAS BEEN CONFIRMED THE DECISION THRESHOLDFOR MD DIAGNOSIS. Performed By: #### H STROPN ####[facility] Yvbzgnmxws2496 [place] [address]Dr. Garima Pulliam HSTROP 9.2 pg/mL Normal 4.0-76.1 [facility] Comment on above: Result Comment: CUT- OFF POINTS HAVE BEEN ESTABLISHED BASED ON THE FOURTH UNIVERSAL DEFINITIONS OF MYOCARDIALINFARCTION. THE UPPER REFERENCE LIMIT (URL) OF TROPONIN, DEFINED THE 99TH PERCENTILE OFcTnI DISTRIBUTION IN A REFERENCE POPULATION, HAS BEEN CONFIRMED THE DECISION THRESHOLDFOR MD DIAGNOSIS. Performed By: #### C MP, BNP, HSTROPN ####[facility] Jyqsqhjxgp4129 [place] [address]Dr. Garima Pulliam XR CHEST 1 Von 01-12-2023 XR CHEST 1 V Normal [facility] XR CHEST 1 Von 01-01-2023 XR CHEST 1 V Normal [facility] CARDIAC NASH 3-6on 3 CK [Catalytic activity/Vol] 196 U/L Normal 39-308 [facility] Comment on above: Performed By: #### C MREP ####[facility] Cutrmtnarz6820 [place] [address]Dr. Garima Pulliam CK.MB [Mass/Vol] 7.41 ng/mL Critically high <=3.60 [facility] Comment on above: Performed By: #### C MREP ####[facility] Jiexzqrrgq1230 [place] [address]Dr. Garima Pulliam HSTROP 10.3 pg/mL Normal 4.0-76.1 [facility] Comment on above: Result Comment: CUT- OFF POINTS HAVE BEEN ESTABLISHED BASED ON THE FOURTH UNIVERSAL DEFINITIONS OF MYOCARDIALINFARCTION. THE UPPER REFERENCE LIMIT (URL) OF TROPONIN, DEFINED THE 99TH PERCENTILE OFcTnI DISTRIBUTION IN A REFERENCE POPULATION, HAS BEEN CONFIRMED THE DECISION THRESHOLDFOR MD DIAGNOSIS. Performed By: #### C MREP ####[facility] Pniazizmcd3371 [place] [id number]. Garima Pulliam XR CHEST 1 Von 12-26-2022 XR CHEST 1 V Normal [facility] BNPon 12-25-2022 Natriuretic peptide B (Bld) [Mass/Vol] 98.0 pg/mL Normal <=900.0 [facility] Comment on above: Performed By: #### B MARVIN FRENCH CMADM ####[facility] Pqposmioof4750 [place] [address]Dr. Garima Pulliam CARDIAC NASH ADMITon 023 CK [Catalytic activity/Vol] 208 U/L Normal 39-308 [facility] Comment on above: Performed By: #### B MARVIN FRENCH CMADM ####[facility] Eofquwaitd4698 [place] [address]Dr. Garima Pulliam CK.MB [Mass/Vol] 7.63 ng/mL Critically high <=3.60 [facility] Comment on above: Performed By: #### B MARVIN FRENCH CMADM ####[facility] Lsziuwknjq[address] [place], [place] [address]Dr. Garima Pulliam HSTROP 8.8 pg/mL Normal 4.0-76.1 [facility] Comment on above: Result Comment: CUT- OFF POINTS HAVE BEEN ESTABLISHED BASED ON THE FOURTH UNIVERSAL DEFINITIONS OF MYOCARDIALINFARCTION. THE UPPER REFERENCE LIMIT (URL) OF TROPONIN, DEFINED THE 99TH PERCENTILE OFcTnI DISTRIBUTION IN A REFERENCE POPULATION, HAS BEEN CONFIRMED THE DECISION THRESHOLDFOR MD DIAGNOSIS. Performed By: #### B MARVIN FRENCH CMADM ####[facility] Hzeyhtarho89[address] [place], [place] [address]Dr. Garima Pulliam DORIS 83 ng/mL Normal 16-96 [facility] Comment on above: Performed By: #### B MARVIN FRENCH CMADM ####[facility] Lvabfupdkq26[address] [place], [place] [address]Dr. Garima Pulliam CBC AUTO DIFFon 12-25-2022 BASO # 0.0 103/ul Normal 0.0-0.1 [facility] Comment on above: Performed By: #### C BC ####[facility] Kajwzlnkgl13[address] [place], [place] [address]Dr. Garima Pulliam Basophils/100 WBC (Bld) 0.0 % Critically low 0.2-2.0 [facility] Comment on above: Performed By: #### C BC ####[facility] Qnoqhndocu9104 [place] [address]Dr. Garima Pulliam EO # 0.0 103/ul Normal 0.0-0.7 [facility] Comment on above: Performed By: #### C BC ####[facility] Thkkmuhuke[address] [place], [place] [address]Dr. Garima Pulliam Eosinophils/100 WBC (Bld) 0.7 % Critically low 0.9-7.0 [facility] Comment on above: Performed By: #### C BC ####[facility] Dtekbfnsll18[address] [place], [place] [address]Dr. Garima Pulliam Erythrocyte distribution width (RBC) [Ratio] 13.4 % Normal 11.0-15.0 [facility] Comment on above: Performed By: #### C BC ####[facility] Cpvbokphob[address] [place], [place] [address]Dr. Garima Pulliam Hematocrit (Bld) [Volume fraction] 42.9 % Normal 42.0-54.0 [facility] Comment on above: Performed By: #### C BC ####[facility] Kfonvqmcfb22[address] [place], [place] [address]Dr. Garima Pulliam Hemoglobin (Bld) [Mass/Vol] 14.4 g/dL Normal 14.0-18.0 [facility] Comment on above: Performed By: #### C BC ####[facility] Lbyxhtyuii[address] [place], [place] [address]Dr. Garima Pulliam IG # 0.00 10e3/ul Normal 0.00-0.03 [facility] Comment on above: Performed By: #### C BC ####[facility] Veezziowgh[address] [place], [place] [address]Dr. Garima Pulliam IG % 0.0 % Normal 0.0-0.5 [facility] Comment on above: Performed By: #### C BC ####[facility] Wkcjosmyol21[address] [place], [place] [address]Dr. Garima Pulliam LYMPH # 2.4 103/ul Normal 1.2-3.8 [facility] Comment on above: Performed By: #### C BC ####[facility] Rtyohvgxla2910 [place] [id number]. Chapisrenu Pulliam Lymphocytes/100 WBC (Bld) 29.2 % Normal 20.5-60.0 [facility] Comment on above: Performed By: #### C BC ####[facility] Ozqtgfqaho2628 [place] [id number]. Garima Pulliam MANUAL DIFF REQ NO Normal [facility] Comment on above: Performed By: #### C BC ####[facility] Xywimrnfnj2466 [place] [id number]. Garima Pulliam MCH (RBC) [Entitic mass] 30.7 pg Normal 25.9-34.0 [facility] Comment on above: Performed By: #### C BC ####[facility] Bkqatvpfxn[address] [place], [place] [address]Dr. Garima Pulliam MCHC (RBC) [Mass/Vol] 33.6 g/dL Normal 29.9-35.2 [facility] Comment on above: Performed By: #### C BC ####[facility] Bkviwmjyzj[address] [place], [place] [address]Dr. Garima Pulliam MCV (RBC) [Entitic vol] 91.5 fL Normal 80.0-94.0 [facility] Comment on above: Performed By: #### C BC ####[facility] Antgmtauui[address] [place], [place] [address]Dr. Garima Pulliam MONO # 0.0 103/ul Critically low 0.3-0.[address] [facility] Comment on above: Performed By: #### C BC ####[facility] Famzbzplwf5532 [place] [address]Dr. Garima Pulliam Monocytes/100 WBC (Bld) 8.0 % Normal 1.7-12.0 [facility] Comment on above: Performed By: #### C BC ####[facility] Nbjtdnymab[address] [place], [place] [address]Dr. Garima Pulliam NEUT # 5.1 103/ul Normal 1.4-6.5 [facility] Comment on above: Performed By: #### C BC ####[facility] Rdbwagqpdh4802 [place], [place] [address]Bk. Garima Pulliam Neutrophils/100 WBC (Bld) 62.8 % Normal 43.0-75.0 [facility] Comment on above: Performed By: #### C BC ####[facility] Ttlynzywxy7199 [place], [place] [address]Vq. Garima Pulliam Platelet mean volume (Bld) [Entitic vol] 8.6 fL Critically low 9.5-13.5 [facility] Comment on above: Performed By: #### C BC ####[facility] Mkmoqfvurx3965 [place] [id number]. Garima Pulliam PLT 200 103/ul Normal 150-450 [facility] Comment on above: Performed By: #### C BC ####[facility] Pfgzowjwwg2645 [place] [id number]. Garima Pulliam RBC 4.69 106/ul Critically low 4.70-6.10 [facility] Comment on above: Performed By: #### C BC ####[facility] Rlczmvtoqi5081 [place], [place] [address]Yb. Garima Pulliam WBC 8.2 103/ul Normal 4.0-11.0 [facility] Comment on above: Performed By: #### C BC ####[facility] Fhukdthwxn8294 [place], [place] [address]Mz. Garima Pulliam Covid-19 [facility] ([facility])on SARS-CoV-2 (COVID-19) RNA MARIE+probe Ql (Unsp spec) Not detected Normal NOT DETECTED [facility] Comment on above: Result Comment: [...] for this test is supported by the [employer] of Health and Human Service's declaration that [...] used). Performed By: #### C VDTBH ####[facility] Ozabjhgylv[address] [place], [place] [address]Dr. Garima Pulliam INFLUENZA A AND B AGon 12-25 INFLUANEGH SEE BELOW Normal [facility] Comment on above: Result Comment: Nega tive for Flu A protein angiten. Infection due to Flu A cannot be ruled out. Flu A angiten in the sample may be below the detection limit of the test. Performed By: #### I NFLUAB ####[facility] [address]plwivrxq[address] [place], [place] [address]Dr. Garima Pulliam INFLUBNEGH SEE BELOW Normal [facility] Comment on above: Result Comment: Nega tive for Flu B protein antigen. Infection due to Flu B cannot be ruled out. Flu B antigen in the sample may be below the detection limit of the test. Performed By: #### I NFLUAB ####[facility] Wbhsfusoxe[address] [place], [place] [address]Dr. Garima Pulliam INFLUENZA A AG Negative Normal NEGATIVE SEE COMMENT [facility] Comment on above: Performed By: #### I NFLUAB ####[facility] Hysjehjdzy137[address] [place], [place] [address]Dr. renu [facility] INFLUENZA B AG Negative Normal NEGATIVE SEE COMMENT [facility] Comment on above: Performed By: #### I NFLUAB ####[facility] Wwnkajrnti454[address] [place], [place] [address]Dr. Garima Pulliam PROF CHEM 8 (BAS METB)on Anion gap [Moles/Vol] 11.1 mmol/L Normal [facility] Comment on above: Performed By: #### B SWATCH CUTTER, BMP, CMADM ####[facility] [address]muwckhjaw[address] [place], [place] [address]Dr. Garima Pulliam Calcium [Mass/Vol] 8.5 mg/dL Normal 8.5-10.1 [facility] Comment on above: Performed By: #### B SWATCH CUTTER, MARVIN, CMADM ####[facility] Asxpibkhyv2159 [place] [id number]. Garima Pulliam Chloride [Moles/Vol] 106 mmol/L Normal 98-107 [facility] Comment on above: Performed By: #### B SWATCH CUTTER, BMP, CMADM ####[facility] Gubhjednzz6670 [place] [address]Dr. Garima Pulliam CO2 [Moles/Vol] 27.4 mmol/L Normal 21.0-32.0 [facility] Comment on above: Performed By: #### B SWATCH CUTTER, MARVIN, CMADM ####[facility] Hkvxtiixsh5803 [place] [address]Dr. Garima Pulliam Creatinine [Mass/Vol] 0.65 mg/dL Critically low 0.70-1.30 [facility] Comment on above: Performed By: #### B SWATCH CUTTER, MARVIN, CMADM ####[facility] Mjtadnubri2603 [place] [address]Dr. Garima Pulliam EGFR-AF GIBRALTARIAN >60 Normal >=60 [facility] Comment on above: Performed By: #### B SWATCH CUTTER, BMP, CMADM ####[facility] Shubzijbjg7332 [place] [address]Dr. Garima Pulliam EGFR-NON AF GIBRALTARIAN >60 Normal >=60 [facility] Comment on above: Performed By: #### B SWATCH CUTTER, BMP, CMADM ####[facility] Dlhdmgbhyj7542 [place] [address]Dr. Garima Pulliam Glucose [Mass/Vol] 140 mg/dL Critically high 74-106 [facility] Comment on above: Performed By: #### B SWATCH CUTTER, BMP, CMADM ####[facility] Wljeysonvm7498 [place] [address]Dr. Garima Pulliam Potassium [Moles/Vol] 3.5 mmol/L Normal 3.5-5.1 [facility] Comment on above: Performed By: #### B SWATCH CUTTER, BMP, CMADM ####[facility] Bssofsaxfo1937 [place] [address]Dr. Garima Pulliam Sodium [Moles/Vol] 141 mmol/L Normal 136-145 [facility] Comment on above: Performed By: #### B SWATCH CUTTER, BMP, CMADM ####[facility] Swrbstzyvb3081 [place] [address]Dr. Garima Pulliam Urea nitrogen [Mass/Vol] 8.0 mg/dL Normal 7.0-18.0 [facility] Comment on above: Performed By: #### B SWATCH CUTTER, BMP, CMADM ####[facility] Wggknlsint3964 [place] [address]Dr. Garima Pulliam Urea nitrogen/Creatinine [Mass ratio] 12.3 mg/mg Normal [facility] Comment on above: Performed By: #### B SWATCH CUTTER, BMP, CMADM ####[facility] Fqbdffrbdt[address] [place], [place] [address]Dr. Garima Pulliam CARDIAC NASH ADMITon 023 CK [Catalytic activity/Vol] 165 U/L Normal 39-308 [facility] Comment on above: Performed By: #### B DAVID, CMADM ####[facility] Hcnymmcmqp[address] [place], [place] [address]Dr. Garima Pulliam CK.MB [Mass/Vol] 6.48 ng/mL Critically high <=3.60 [facility] Comment on above: Performed By: #### B MP, CMADM ####[facility] Byqitrzpku[address] [place], [place] [address]Dr. Garima Pulliam HSTROP 11.7 pg/mL Normal 4.0-76.1 [facility] Comment on above: Result Comment: CUT- OFF POINTS HAVE BEEN ESTABLISHED BASED ON THE FOURTH UNIVERSAL DEFINITIONS OF MYOCARDIALINFARCTION. THE UPPER REFERENCE LIMIT (URL) OF TROPONIN, DEFINED THE 99TH PERCENTILE OFcTnI DISTRIBUTION IN A REFERENCE POPULATION, HAS BEEN CONFIRMED THE DECISION THRESHOLDFOR MD DIAGNOSIS. Performed By: #### B MP, CMADM ####[facility] Llvphulrwk[address] [place], [place] [address]Dr. Garima Pulliam DORIS 83 ng/mL Normal 16-96 [facility] Comment on above: Performed By: #### B MP, CMADM ####[facility] [address] [place] [address]Dr. Gariam Pulliam CBC AUTO DIFFon 12-10-2022 BASO # 0.0 103/ul Normal 0.0-0.1 [facility] Comment on above: Performed By: #### C BC ####[facility] Dfqcpvttse[address] [place], [place] [address]Dr. Garima Heraclio Basophils/100 WBC (Bld) 0.3 % Normal 0.2-2.0 [facility] Comment on above: Performed By: #### C BC ####[facility] Bxuplielcz[address] [place], [place] [address]Dr. Garima Pulliam EO # 0.1 103/ul Normal 0.0-0.7 [facility] Comment on above: Performed By: #### C BC ####[facility] Xmygtuomcq[address] [place], [place] [address]Dr. Garima Pulliam Eosinophils/100 WBC (Bld) 0.4 % Critically low 0.9-7.0 [facility] Comment on above: Performed By: #### C BC ####[facility] Arphkmjbyw[address] [place], [place] [address]Dr. Garima Pulliam Erythrocyte distribution width (RBC) [Ratio] 13.2 % Normal 11.0-15.0 [facility] Comment on above: Performed By: #### C BC ####[facility] Qavpddlxty174[address] [place], [place] [address]Dr. Garima Pulliam Hematocrit (Bld) [Volume fraction] 42.4 % Normal 42.0-54.0 [facility] Comment on above: Performed By: #### C BC ####[facility] Akccijstic[address] [place], [place] [address]Dr. Garima Pulliam Hemoglobin (Bld) [Mass/Vol] 14.4 g/dL Normal 14.0-18.0 [facility] Comment on above: Performed By: #### C BC ####[facility] Fcymjzqlzd95[address] [place] [id number]. Garima Heraclio IG # 0.05 10e3/ul Critically high 0.00-0.03 [facility] Comment on above: Performed By: #### C BC ####[facility] Tvcpvumdzn6892 [place] [address]Dr. Garima Heraclio IG % 0.4 % Normal 0.0-0.5 [facility] Comment on above: Performed By: #### C BC ####[facility] Gnnfqfmmqi[address] [place], [place] [address]Dr. Garima Pulliam LYMPH # 0.8 103/ul Critically low 1.2-3.[address] [facility] Comment on above: Performed By: #### C BC ####[facility] Ulpgpdgxtx1115[address] [place], [place] [address]Dr. Chapisrenu Pulliam Lymphocytes/100 WBC (Bld) 6.5 % Critically low 20.5-60.0 [facility] Comment on above: Performed By: #### C BC ####[facility] Kiukxjivpn[address] [place], [place] [address]Dr. Chapisrenu Pulliam MANUAL DIFF REQ NO Normal [facility] Comment on above: Performed By: #### C BC ####[facility] Nllclsefjw[address] [place], [place] [address]DrAdalberto Garima Pulliam MCH (RBC) [Entitic mass] 30.5 pg Normal 25.9-34.0 [facility] Comment on above: Performed By: #### C BC ####[facility] Fqaqynntri8916[address] [place], [place] [address]DrAdalberto Garima Heraclio MCHC (RBC) [Mass/Vol] 34.0 g/dL Normal 29.9-35.2 [facility] Comment on above: Performed By: #### C BC ####[facility] Mmfmxvbbaj457[address] [place], [place] [address]DrAdalberto Garima Heraclio MCV (RBC) [Entitic vol] 89.8 fL Normal 80.0-94.0 [facility] Comment on above: Performed By: #### C BC ####[facility] Orynqwtniz[address] [place], [place] [address]Dr. Garima Pulliam MONO # 0.2 103/ul Critically low 0.3-0.[address] [facility] Comment on above: Performed By: #### C BC ####[facility] Ecjnmqmpgo9485 [place] [id number]. Garima Pulliam Monocytes/100 WBC (Bld) 2.0 % Normal 1.7-12.0 [facility] Comment on above: Performed By: #### C BC ####[facility] Vmskyjmciz8507 [place] [address]Dr. Chapisrenu Heraclio NEUT # 10.5 103/ul Critically high 1.4-6.5 [facility] Comment on above: Performed By: #### C BC ####[facility] Ajcqrsvczs7708 [place] [address]Dr. Garima Pulliam Neutrophils/100 WBC (Bld) 90.4 % Critically high 43.0-75.0 [facility] Comment on above: Performed By: #### C BC ####[facility] Pvhefhrgck1290 [place] [address]Dr. Garima Pulliam Platelet mean volume (Bld) [Entitic vol] 9.4 fL Critically low 9.5-13.5 [facility] Comment on above: Performed By: #### C BC ####[facility] Ieqwwxlxtk6057 [place] [address]Dr. Garima Pulliam PLT 198 103/ul Normal 150-450 [facility] Comment on above: Performed By: #### C BC ####[facility] Eqpzakjxvt8373 [place] [address]Dr. Garima Pulliam RBC 4.72 106/ul Normal 4.70-6.10 [facility] Comment on above: Performed By: #### C BC ####[facility] Gzpcydeaac0220 [place] [id number]. Garima Pulliam WBC 11.6 103/ul Critically high 4.0-11.0 [facility] Comment on above: Performed By: #### C BC ####[facility] Xpktahsbbm7460 [place] [address]DrAdalberto Pulliam PROF CHEM 8 (BAS METB)on Anion gap [Moles/Vol] 11.3 mmol/L Normal Th [facility] Comment on above: Performed By: #### B NANCY HERNANDEZ ####[facility] Pyifvcpqja6504 [place] [address]Dr. Garima Pulliam Calcium [Mass/Vol] 8.9 mg/dL Normal 8.5-10.1 [facility] Comment on above: Performed By: #### B NANCY HERNANDEZ ####[facility] Tueuopjxrb6861 [place] [address]Dr. Garima Pulliam Chloride [Moles/Vol] 103 mmol/L Normal 98-107 [facility] Comment on above: Performed By: #### B NANCY HERNANDEZ ####[facility] Kzkchxffsz[address] [place], [place] [address]Dr. Garima Pulliam CO2 [Moles/Vol] 28.2 mmol/L Normal 21.0-32.0 [facility] Comment on above: Performed By: #### NANCY Larkin MP ####[facility] Ssihkoakvg69[address] [place] [address]Dr. Chapisrenu Pulliam Creatinine [Mass/Vol] 0.60 mg/dL Critically low 0.70-1.30 [facility] Comment on above: Performed By: #### NANCY Larkin MP ####[facility] Qokxhfizdi3622 [place] [address]Dr. Garima Pulliam EGFR-AF GIBRALTARIAN >60 Normal >=60 [facility] Comment on above: Performed By: #### NANCY Larkin MP ####[facility] Qenyjyfgvu1107 [place] [address]Dr. Garima Pulliam EGFR-NON AF GIBRALTARIAN >60 Normal >=60 [facility] Comment on above: Performed By: #### NANCY Larkin MP ####[facility] Ytyngarytl98[address] [place], [place] [address]Dr. Garima Pulliam Glucose [Mass/Vol] 166 mg/dL Critically high 74-106 [facility] Comment on above: Performed By: #### B MP, CMADM ####[facility] Jkmpsuwkrh2425 [place] [address]Dr. Garima Pulliam Potassium [Moles/Vol] 3.5 mmol/L Normal 3.5-5.1 [facility] Comment on above: Performed By: #### B MP, CMADM ####[facility] Pqulileand1940 [place] [address]Dr. Garima Pulliam Sodium [Moles/Vol] 139 mmol/L Normal 136-145 [facility] Comment on above: Performed By: #### B DAVID, CMADM ####[facility] Apcmxvokom0380 [place] [address]Dr. Garima Heraclio Urea nitrogen [Mass/Vol] 9.0 mg/dL Normal 7.0-18.0 [facility] Comment on above: Performed By: #### B DAVID, NANCY ####[facility] Eiinofcajd[address] [place], [place] [address]Dr. Garima Heraclio Urea nitrogen/Creatinine [Mass ratio] 15.0 mg/mg Normal [facility] Comment on above: Performed By: #### B DAVID, CMAANA ROSA ####[facility] Zqhojwcbir164[address] [place], [place] [address]Dr. Garima Pulliam XR CHEST 1 Von 12-10-2022 XR CHEST 1 V Normal [facility] BNPon 11-27-2022 Natriuretic peptide B (Bld) [Mass/Vol] 95.0 pg/mL Normal <=900.0 [facility] Comment on above: Performed By: #### C MP, HSTROPN, BNP ####[facility] Gkmngssmqi5[address] [place], [place] [address]Dr. Garima Heraclio CBC AUTO DIFFon 11-27-2022 BASO # 0.0 103/ul Normal 0.0-0.1 [facility] Comment on above: Performed By: #### C BC ####[facility] Ytvgrmhcth[address] [place], [place] [address]Dr. Garima Heraclio Basophils/100 WBC (Bld) 0.2 % Normal 0.2-2.0 [facility] Comment on above: Performed By: #### C BC ####[facility] Yrgdgugsbt2284 [place] [id number]. Garima Pulliam EO # 0.2 103/ul Normal 0.0-0.7 [facility] Comment on above: Performed By: #### C BC ####[facility] Iialnligbk6230 [place] [id number]. Garima Pulliam Eosinophils/100 WBC (Bld) 2.0 % Normal 0.9-7.0 [facility] Comment on above: Performed By: #### C BC ####[facility] Guwtxhwfrd194[address] [place], [place] [address]Dr. Garima Pulliam Erythrocyte distribution width (RBC) [Ratio] 13.2 % Normal 11.0-15.0 [facility] Comment on above: Performed By: #### C BC ####[facility] Cgsopwirya[address] [place], [place] [address]Dr. Garima Pulliam Hematocrit (Bld) [Volume fraction] 42.4 % Normal 42.0-54.0 [facility] Comment on above: Performed By: #### C BC ####[facility] Aafcprzfot[address] [place], [place] [address]Dr. Graima Pulliam Hemoglobin (Bld) [Mass/Vol] 14.4 g/dL Normal 14.0-18.0 [facility] Comment on above: Performed By: #### C BC ####[facility] Qirjbeqcwd46[address] [place], [place] [address]Dr. Garima Pulliam IG # 0.04 10e3/ul Critically high 0.00-0.03 [facility] Comment on above: Performed By: #### C BC ####[facility] Ifoeywrarm618[address] [place], [place] [address]Dr. Garima Pulliam IG % 0.4 % Normal 0.0-0.5 [facility] Comment on above: Performed By: #### C BC ####[facility] Xxebyruvsr06[address] [place], [place] [address]Dr. Garima Pulliam LYMPH # 2.2 103/ul Normal 1.2-3.8 [facility] Comment on above: Performed By: #### C BC ####[facility] Ezbyswkcpl5447 [place] [id number]. Garima Pulliam Lymphocytes/100 WBC (Bld) 21.5 % Normal 20.5-60.0 [facility] Comment on above: Performed By: #### C BC ####[facility] Agxhhxavmf2971 [place] [id number]. Garima Heraclio MANUAL DIFF REQ NO Normal [facility] Comment on above: Performed By: #### C BC ####[facility] Ckntmtqoia3771 [place] [id number]. Garima Heraclio MCH (RBC) [Entitic mass] 30.4 pg Normal 25.9-34.0 [facility] Comment on above: Performed By: #### C BC ####[facility] Qyrtlpprky9553 [place] [address]Dr. Garima Heraclio MCHC (RBC) [Mass/Vol] 34.0 g/dL Normal 29.9-35.2 [facility] Comment on above: Performed By: #### C BC ####[facility] Edbugwauij1607 [place] [id number]. Garima Pulliam MCV (RBC) [Entitic vol] 89.6 fL Normal 80.0-94.0 [facility] Comment on above: Performed By: #### C BC ####[facility] Eednnvvnvb4177 [place] [id number]. Garima Pulliam MONO # 0.8 103/ul Normal 0.3-0.8 [facility] Comment on above: Performed By: #### C BC ####[facility] Xeabwdpxob3504 [place] [id number]. Chapisrenu Pulliam Monocytes/100 WBC (Bld) 7.7 % Normal 1.7-12.0 [facility] Comment on above: Performed By: #### C BC ####[facility] Aahmdrqsic22[address] [place], [place] [address]Dr. Garima Pulliam NEUT # 7.0 103/ul Critically high 1.4-6.5 [facility] Comment on above: Performed By: #### C BC ####[facility] Sdtbcmsmli0024 [place] [id number]. Garima Pulliam Neutrophils/100 WBC (Bld) 68.2 % Normal 43.0-75.0 [facility] Comment on above: Performed By: #### C BC ####[facility] Szkqaaankq5143 [place] [id number]. Chapisreun Pulliam Platelet mean volume (Bld) [Entitic vol] 8.9 fL Critically low 9.5-13.5 [facility] Comment on above: Performed By: #### C BC ####[facility] Kndyzpifmo3248 [place] [address]Dr. Garima Pulliam PLT 222 103/ul Normal 150-450 [facility] Comment on above: Performed By: #### C BC ####[facility] Vbmqheikej9437 [place] [address]Dr. Garima Pulliam RBC 4.73 106/ul Normal 4.70-6.10 [facility] Comment on above: Performed By: #### C BC ####[facility] Gzvvmbvmty6980 [place] [address]Dr. Garima Pulliam WBC 10.3 103/ul Normal 4.0-11.0 [facility] Comment on above: Performed By: #### C BC ####[facility] Ayvhamsyrj9334 [place] [address]Dr. Garima Pulliam PROF 14(COMP METB)on 023 Albumin [Mass/Vol] 3.7 g/dL Normal 3.4-5.0 [facility] Comment on above: Performed By: #### C MP, HSTROPN, BNP ####[facility] Wlvrbmhlrr0599 [place] [address]Dr. Chapisrenu Pulliam Albumin/Globulin [Mass ratio] 1.5 {ratio} Normal [facility] Comment on above: Performed By: #### C MP, HSTROPN, BNP ####[facility] Wksojusdol3285 [place] [address]Dr. Garima Pulliam ALP [Catalytic activity/Vol] 79 U/L Normal 46-116 [facility] Comment on above: Performed By: #### C MP, HSTROPN, BNP ####[facility] Lywllhncvl7823 [place] [address]Dr. Garima Pulliam ALT [Catalytic activity/Vol] 32 U/L Normal 16-63 [facility] Comment on above: Performed By: #### C MP, HSTROPN, BNP ####[facility] Ssmayliogu4139 [place] [address]Dr. Garima Pulliam Anion gap [Moles/Vol] 9.5 mmol/L Normal [facility] Comment on above: Performed By: #### C MP, HSTROPN, BNP ####[facility] Afxvajeslx71[address] [place], [place] [address]Dr. Garima Pulliam AST [Catalytic activity/Vol] 25 U/L Normal 15-37 [facility] Comment on above: Performed By: #### C MP, HSTROPN, BNP ####[facility] Umqbtwihtz50[address] [place], [place] [address]Dr. Chapislan Pulliam Bilirubin [Mass/Vol] 0.4 mg/dL Normal 0.2-1.0 [facility] Comment on above: Performed By: #### C MP, HSTROPN, BNP ####[facility] Kocjmfcxdg276[address] [place], [place] [address]Dr. Garima Pulliam Calcium [Mass/Vol] 8.9 mg/dL Normal 8.5-10.1 [facility] Comment on above: Performed By: #### C MP, HSTROPN, BNP ####[facility] Fiiamuvmic04[address] [place], [place] [address]Dr. Chapislan Pulliam Chloride [Moles/Vol] 103 mmol/L Normal 98-107 [facility] Comment on above: Performed By: #### C MP, HSTROPN, BNP ####[facility] Xutzcagqpa9564[address] [place], [place] [address]Dr. Yilan Pulliam CO2 [Moles/Vol] 28.6 mmol/L Normal 21.0-32.0 [facility] Comment on above: Performed By: #### C MP, HSTROPN, BNP ####[facility] Qfloxirluv2221 [place] [address]Dr. Garima Pulliam Creatinine [Mass/Vol] 0.72 mg/dL Normal 0.70-1.30 [facility] Comment on above: Performed By: #### C MP, HSTROPN, BNP ####[facility] Ogsgjmarap7570 [place] [address]Dr. Garima Pulliam EGFR-AF GIBRALTARIAN >60 Normal >=60 [facility] Comment on above: Performed By: #### C MP, HSTROPN, BNP ####[facility] Sereydlbuv6535 [place] [address]Dr. Garima Pulliam EGFR-NON AF GIBRALTARIAN >60 Normal >=60 [facility] Comment on above: Performed By: #### C MP, HSTROPN, BNP ####[facility] Rrpikosnes0998 [place] [address]Dr. Garima Pulliam Globulin (S) [Mass/Vol] 2.5 g/dL Normal [facility] Comment on above: Performed By: #### C MP, HSTROPN, BNP ####[facility] Jqmmjoeafc[address] [place], [place] [address]Dr. Garima Pulliam Glucose [Mass/Vol] 114 mg/dL Critically high 74-106 T [facility] Comment on above: Performed By: #### C MP, HSTROPN, BNP ####[facility] Hzdxkjwkwu465[address] [place], [place] [address]Dr. Garima Pulliam Potassium [Moles/Vol] 4.1 mmol/L Normal 3.5-5.1 [facility] Comment on above: Performed By: #### C MP, HSTROPN, BNP ####[facility] Shvssuqyzk117[address] [place], [place] [address]Dr. Garima Pulliam Protein [Mass/Vol] 6.2 g/dL Critically low 6.4-8.2 Th [facility] Comment on above: Performed By: #### C MP, HSTROPN, BNP ####[facility] Tonhgqooat764[address] [place], [place] [address]Dr. Yilan Pulliam Sodium [Moles/Vol] 137 mmol/L Normal 136-145 [facility] Comment on above: Performed By: #### C MP, HSTROPN, BNP ####[facility] Bbnjlpbiud6478 [place] [address]Dr. Garima Pulliam Urea nitrogen [Mass/Vol] 13.0 mg/dL Normal 7.0-18.0 [facility] Comment on above: Performed By: #### C MP, HSTROPN, BNP ####[facility] Paormxmgcn7023 [place] [address]Dr. Garima Pulliam Urea nitrogen/Creatinine [Mass ratio] 18.1 mg/mg Normal [facility] Comment on above: Performed By: #### C MP, HSTROPN, BNP ####[facility] Ogbpsyoqcv2237[address] [place], [place] [address]Dr. Garima Pulliam TROPONIN, HIGH SENSITIVITYon 11-27-2022 HSTROP 11.8 pg/mL Normal 4.0-76.1 [facility] Comment on above: Result Comment: CUT- OFF POINTS HAVE BEEN ESTABLISHED BASED ON THE FOURTH UNIVERSAL DEFINITIONS OF MYOCARDIALINFARCTION. THE UPPER REFERENCE LIMIT (URL) OF TROPONIN, DEFINED THE 99TH PERCENTILE OFcTnI DISTRIBUTION IN A REFERENCE POPULATION, HAS BEEN CONFIRMED THE DECISION THRESHOLDFOR MD DIAGNOSIS. Performed By: #### C MP, HSTROPN, BNP ####[facility] Baytgnayth[address] [place], [place] [address]Dr. Garima Pulliam XR CHEST 1 Von 11-27-2022 XR CHEST 1 V Normal [facility] BNPon 11-20-2022 Natriuretic peptide B (Bld) [Mass/Vol] 73.0 pg/mL Normal <=900.0 [facility] Comment on above: Performed By: #### B MP, HSTROPN, BNP ####[facility] Hmvgaqwiws[address] [place], [place] [address]Dr. Garima Pulliam CBC AUTO DIFFon 11-20-2022 BASO # 0.0 103/ul Normal 0.0-0.1 [facility] Comment on above: Performed By: #### C BC ####[facility] Dravyhpmio4086 [place] [id number]. Garima Pulliam Basophils/100 WBC (Bld) 0.3 % Normal 0.2-2.0 [facility] Comment on above: Performed By: #### C BC ####[facility] Qpxilwhsmf5978 [place] [id number]. Garima Pulliam EO # 0.2 103/ul Normal 0.0-0.7 [facility] Comment on above: Performed By: #### C BC ####[facility] Rvqqfswvde2638 [place] [address]Dr. Garima Pulliam Eosinophils/100 WBC (Bld) 2.1 % Normal 0.9-7.0 [facility] Comment on above: Performed By: #### C BC ####[facility] Ggxpznuzuz[address] [place], [place] [address]Dr. Garima Pulliam Erythrocyte distribution width (RBC) [Ratio] 13.2 % Normal 11.0-15.0 [facility] Comment on above: Performed By: #### C BC ####[facility] Fjbnmnvsee[address] [place], [place] [address]Dr. Garima Pulliam Hematocrit (Bld) [Volume fraction] 43.4 % Normal 42.0-54.0 [facility] Comment on above: Performed By: #### C BC ####[facility] [address] [place], [place] [address]Dr. Garima Pulliam Hemoglobin (Bld) [Mass/Vol] 14.6 g/dL Normal 14.0-18.0 [facility] Comment on above: Performed By: #### C BC ####[facility] Sgqjdewivl1965 [place] [id number]. Garima Pulliam IG # 0.02 10e3/ul Normal 0.00-0.03 [facility] Comment on above: Performed By: #### C BC ####[facility] Tgkwlufofw3003 [place] [address]Dr. Garima Pulliam IG % 0.2 % Normal 0.0-0.5 [facility] Comment on above: Performed By: #### C BC ####[facility] Qskezicocw6637 [place] [id number]. Garima Heraclio LYMPH # 2.1 103/ul Normal 1.2-3.8 [facility] Comment on above: Performed By: #### C BC ####[facility] Dlnugdrxcn7148 [place] [id number]. Garima Heraclio Lymphocytes/100 WBC (Bld) 19.2 % Critically low 20.5-60.0 [facility] Comment on above: Performed By: #### C BC ####[facility] Natecibvxb1619 [place] [id number]. Chapisrenu Pulliam MANUAL DIFF REQ NO Normal [facility] Comment on above: Performed By: #### C BC ####[facility] Tuweectqql3828 [place] [id number]. Garima Heraclio MCH (RBC) [Entitic mass] 30.4 pg Normal 25.9-34.0 [facility] Comment on above: Performed By: #### C BC ####[facility] Zqeiycorle3906 [place] [address]Dr. Garima Pulliam MCHC (RBC) [Mass/Vol] 33.6 g/dL Normal 29.9-35.2 [facility] Comment on above: Performed By: #### C BC ####[facility] Jmpnhcajew2324 [place] [id number]. Garima Heraclio MCV (RBC) [Entitic vol] 90.4 fL Normal 80.0-94.0 [facility] Comment on above: Performed By: #### C BC ####[facility] Izxoxtotyt3889 [place] [id number]. Garima Heraclio MONO # 0.6 103/ul Normal 0.3-0.8 [facility] Comment on above: Performed By: #### C BC ####[facility] Kfrdpglskt6148 [place] [address]Dr. Garima Heraclio Monocytes/100 WBC (Bld) 5.8 % Normal 1.7-12.0 [facility] Comment on above: Performed By: #### C BC ####[facility] Maxkepdkih4695 [place], [place] [address]Jx. Garima Pulliam NEUT # 7.8 103/ul Critically high 1.4-6.5 [facility] Comment on above: Performed By: #### C BC ####[facility] Doejtkqljn7922 [place] [id number]. Garima Pulliam Neutrophils/100 WBC (Bld) 72.4 % Normal 43.0-75.0 [facility] Comment on above: Performed By: #### C BC ####[facility] Ozbdtgxzem1055 [place] [id number]. Garima Pulliam Platelet mean volume (Bld) [Entitic vol] 8.7 fL Critically low 9.5-13.5 [facility] Comment on above: Performed By: #### C BC ####[facility] Rjkyjctaiu2993 [place] [id number]. Garima Pulliam PLT 184 103/ul Normal 150-450 [facility] Comment on above: Performed By: #### C BC ####[facility] Padcgljesz4464 [place], [place] [address]Nx. Garima Pulliam RBC 4.80 106/ul Normal 4.70-6.10 [facility] Comment on above: Performed By: #### C BC ####[facility] Nxzdzpjzfd2949 [place] [id number]. Garima Pulliam WBC 10.8 103/ul Normal 4.0-11.0 [facility] Comment on above: Performed By: #### C BC ####[facility] Wtugivejdm6755 [place] [id number]. Garima Pulliam [facility]on [facility]24 SARS-CoV-2 (COVID-19) RNA MARIE+probe Ql (Unsp spec) Not detected Normal NOT DETECTED [facility] Comment on above: Result Comment: [...] for this test is supported by the Home Care Giver of Health and Human Service's declaration that [...] used). Performed By: #### C VDTBH ####[facility] Rgmwuuzdrx[address] [place], [place] [address]Dr. Garima Pulliam INFLUENZA A AND B AGon 11-20 [facility] SEE BELOW Normal [facility] Comment on above: Result Comment: Nega tive for Flu A protein angiten. Infection due to Flu A cannot be ruled out. Flu A angiten in the sample may be below the detection limit of the test. Performed By: #### I NFLUAB ####[facility] Oipbmnjfnm[address] [place], [place] [address]Dr. Garima Pulliam INFLUBNEGH SEE BELOW Normal [facility] Comment on above: Result Comment: Nega tive for Flu B protein antigen. Infection due to Flu B cannot be ruled out. Flu B antigen in the sample may be below the detection limit of the test. Performed By: #### I NFLUAB ####[facility] Bctuuackvf[address] [place], [place] [address]Dr. Garima Pulliam INFLUENZA A AG Negative Normal NEGATIVE SEE COMMENT [facility] Comment on above: Performed By: #### I NFLUAB ####[facility] Nezchllnpc[address] [place], [place] [address]Dr. Garima [facility] INFLUENZA B AG Negative Normal NEGATIVE SEE COMMENT [facility] Comment on above: Performed By: #### I NFLUAB ####[facility] Nbvkfxrpqk[address] [place], [place] [address]Dr. Garima Pulliam PROF CHEM 8 (BAS METB)on Anion gap [Moles/Vol] 8.2 mmol/L Normal [facility] Comment on above: Performed By: #### B MP, HSTROPN, BNP ####[facility] [address]tr[address] [place] [address]Dr. Garima Pulliam Calcium [Mass/Vol] 8.7 mg/dL Normal 8.5-10.1 [facility] Comment on above: Performed By: #### B MP, HSTROPN, BNP ####[facility] Smzfdcdlni[address] [place] [address]Dr. Garima Pulliam Chloride [Moles/Vol] 103 mmol/L Normal 98-107 [facility] Comment on above: Performed By: #### B MP, HSTROPN, BNP ####[facility] Muwxmdrtrf[address] [place], [place] [address]Dr. Garima Pulliam CO2 [Moles/Vol] 29.4 mmol/L Normal 21.0-32.0 [facility] Comment on above: Performed By: #### B MP, HSTROPN, BNP ####[facility] Jmcgzhxsgo[address] [place], [place] [address]Dr. Garima Pulilam Creatinine [Mass/Vol] 0.69 mg/dL Critically low 0.70-1.30 [facility] Comment on above: Performed By: #### B MP, HSTROPN, BNP ####[facility] Kdjwsioncb[address] [place] [address]Dr. Garima Pulliam EGFR-AF GIBRALTARIAN >60 Normal >=60 [facility] Comment on above: Performed By: #### B MP, HSTROPN, BNP ####[facility] Qvyhqpkodu[address] [place], [place] [address]Dr. Garima Pulliam EGFR-NON AF GIBRALTARIAN >60 Normal >=60 [facility] Comment on above: Performed By: #### B MP, HSTROPN, BNP ####[facility] Ckxftyhsfi[address] [place] [address]Dr. Garima Pulliam Glucose [Mass/Vol] 209 mg/dL Critically high 74-106 T [facility] Comment on above: Performed By: #### B MP, HSTROPN, BNP ####[facility] Abnabrmdrx[address] [place] [address]Dr. Garima Pulliam Potassium [Moles/Vol] 3.6 mmol/L Normal 3.5-5.1 [facility] Comment on above: Performed By: #### B MP, HSTROPN, BNP ####[facility] Vnxulbrbop6[address] [place] [address]Dr. Garima Pulliam Sodium [Moles/Vol] 137 mmol/L Normal 136-145 [facility] Comment on above: Performed By: #### B MP, HSTROPN, BNP ####[facility] Lneczrydzj90[address] [place] [address]Dr. Garima Pulliam Urea nitrogen [Mass/Vol] 11.0 mg/dL Normal 7.0-18.0 [facility] Comment on above: Performed By: #### B MP, HSTROPN, BNP ####[facility] Lo[address]ovqhtw[address] [place] [address]Dr. Garima Pulliam Urea nitrogen/Creatinine [Mass ratio] 15.9 mg/mg Normal [facility] Comment on above: Performed By: #### B MP, HSTROPN, BNP ####[facility] Luvrszxgyk[address] [place] [address]Dr. Garima Pulliam TROPONIN, HIGH SENSITIVITYon 11-20-2022 HSTROP 8.7 pg/mL Normal 4.0-76.1 [facility] Comment on above: Result Comment: CUT- OFF POINTS HAVE BEEN ESTABLISHED BASED ON THE FOURTH UNIVERSAL DEFINITIONS OF MYOCARDIALINFARCTION. THE UPPER REFERENCE LIMIT (URL) OF TROPONIN, DEFINED THE 99TH PERCENTILE OFcTnI DISTRIBUTION IN A REFERENCE POPULATION, HAS BEEN CONFIRMED THE DECISION THRESHOLDFOR MD DIAGNOSIS. Performed By: #### B MP, HSTROPN, BNP ####[facility] Wfmwmlmtrm[address] [place] [address]Dr. Garima Pulliam XR CHEST 1 Von 11-20-2022 XR CHEST 1 V Normal [facility] XR CHEST 1 Von 10-02-2022 XR CHEST 1 V Normal [facility] BNPon 09-29-2022 Natriuretic peptide B (Bld) [Mass/Vol] 107.0 pg/mL Normal <=900.0 [facility] Comment on above: Performed By: #### C MP, BNP, CMADM ####[facility] Zvzbqhekcr4[address] [place] [address]Dr. Garima Pulliam CARDIAC NASH ADMITon 022 CK [Catalytic activity/Vol] 190 U/L Normal 39-308 [facility] Comment on above: Performed By: #### C MP, BNP, CMADM ####[facility] Uihuefbxzg64[address] [place] [address]Dr. Garima Heraclio CK.MB [Mass/Vol] 11.11 ng/mL Critically high <=3.60 [facility] Comment on above: Performed By: #### C MP, BNP, CMADM ####[facility] Mbglvpcvze7[address] [place] [address]Dr. Garima Pulliam HSTROP 11.8 pg/mL Normal 4.0-76.1 [facility] Comment on above: Result Comment: CUT- OFF POINTS HAVE BEEN ESTABLISHED BASED ON THE FOURTH UNIVERSAL DEFINITIONS OF MYOCARDIALINFARCTION. THE UPPER REFERENCE LIMIT (URL) OF TROPONIN, DEFINED THE 99TH PERCENTILE OFcTnI DISTRIBUTION IN A REFERENCE POPULATION, HAS BEEN CONFIRMED THE DECISION THRESHOLDFOR MD DIAGNOSIS. Performed By: #### C MP, BNP, CMADM ####[facility] Ighsdhckju36[address] [place] [address]Dr. Garima Pulliam DORIS 133 ng/mL Critically high 16-96 [facility] Comment on above: Performed By: #### C MP, BNP, CMADM ####[facility] Tyfyqthgfn40[address] [place] [address]Dr. Garima Heraclio CBC AUTO DIFFon 09-29-2022 BASO # 0.0 103/ul Normal 0.0-0.1 [facility] Comment on above: Performed By: #### C BC ####[facility] Jwrygtujip88[address] [place] [address]Dr. Garima Heraclio Basophils/100 WBC (Bld) 0.2 % Normal 0.2-2.0 [facility] Comment on above: Performed By: #### C BC ####[facility] Efidozpttz23[address] [place] [id number]. Garima Pulliam EO # 0.1 103/ul Normal 0.0-0.7 [facility] Comment on above: Performed By: #### C BC ####[facility] Twcmcprvtg6656 [place] [id number]. Garima Pulliam Eosinophils/100 WBC (Bld) 1.4 % Normal 0.9-7.0 [facility] Comment on above: Performed By: #### C BC ####[facility] Qvhdzsgiys[address] [place], [place] [address]Dr. Garima Pulliam Erythrocyte distribution width (RBC) [Ratio] 13.7 % Normal 11.0-15.0 [facility] Comment on above: Performed By: #### C BC ####[facility] Xvkooxomrv[address] [place], [place] [address]Dr. Garima Pulliam Hematocrit (Bld) [Volume fraction] 45.4 % Normal 42.0-54.0 [facility] Comment on above: Performed By: #### C BC ####[facility] Xequhddnhs40[address] [place], [place] [address]Dr. Garima Pulliam Hemoglobin (Bld) [Mass/Vol] 14.8 g/dL Normal 14.0-18.0 [facility] Comment on above: Performed By: #### C BC ####[facility] Fyqexeoyap94[address] [place], [place] [address]Dr. Garima Pulliam IG # 0.04 10e3/ul Critically high 0.00-0.03 [facility] Comment on above: Performed By: #### C BC ####[facility] Bltykwqmzr[address] [place], [place] [address]Dr. Garima Pulliam IG % 0.5 % Normal 0.0-0.5 [facility] Comment on above: Performed By: #### C BC ####[facility] Cjlngwwktg[address] [place], [place] [address]Dr. Garima Pulliam LYMPH # 1.1 103/ul Critically low 1.2-3.[address] [facility] Comment on above: Performed By: #### C BC ####[facility] Fdbchvptki7[address] [place] [id number]. Garima Pulliam Lymphocytes/100 WBC (Bld) 12.7 % Critically low 20.5-60.0 [facility] Comment on above: Performed By: #### C BC ####[facility] Dfsiehfatk5464 [place] [id number]. Chapisreun Pulliam MANUAL DIFF REQ NO Normal [facility] Comment on above: Performed By: #### C BC ####[facility] Rdqfkomzjl[address] [place], [place] [address]Dr. Garima Heraclio MCH (RBC) [Entitic mass] 30.0 pg Normal 25.9-34.0 [facility] Comment on above: Performed By: #### C BC ####[facility] Xxxnzpfmke[address] [place], [place] [address]Dr. Garima Heraclio MCHC (RBC) [Mass/Vol] 32.6 g/dL Normal 29.9-35.2 [facility] Comment on above: Performed By: #### C BC ####[facility] [address] [place], [place] [address]Dr. Garima Heraclio MCV (RBC) [Entitic vol] 91.9 fL Normal 80.0-94.0 [facility] Comment on above: Performed By: #### C BC ####[facility] Ipandfznlh[address] [place], [place] [address]Dr. Garima Pulliam MONO # 0.4 103/ul Normal 0.3-0.8 [facility] Comment on above: Performed By: #### C BC ####[facility] Y[address]kw[address] [place], [place] [address]Dr. Chapisrenu Pulliam Monocytes/100 WBC (Bld) 4.8 % Normal 1.7-12.0 [facility] Comment on above: Performed By: #### C BC ####[facility] Dotsswwevi[address] [place], [place] [address]Dr. Garima Pulliam NEUT # 7.1 103/ul Critically high 1.4-6.5 [facility] Comment on above: Performed By: #### C BC ####[facility] H[address]ukk[address] [place], [place] [address]Zd. Garima Pulliam Neutrophils/100 WBC (Bld) 80.4 % Critically high 43.0-75.0 [facility] Comment on above: Performed By: #### C BC ####[facility] Drtebnbfmy5169 [place] [id number]. Garima Pulliam Platelet mean volume (Bld) [Entitic vol] 9.1 fL Critically low 9.5-13.5 [facility] Comment on above: Performed By: #### C BC ####[facility] Vczodgmhbs1354 [place] [id number]. Garima Pulliam PLT 200 103/ul Normal 150-450 [facility] Comment on above: Performed By: #### C BC ####[facility] Vochwmpdqx4058 [place] [id number]. Garima Pulliam RBC 4.94 106/ul Normal 4.70-6.10 [facility] Comment on above: Performed By: #### C BC ####[facility] Qqvndfvowc4455 [place] [id number]. Garima Pulliam WBC 8.9 103/ul Normal 4.0-11.0 [facility] Comment on above: Performed By: #### C BC ####[facility] Qdbxetkkew0931 [place] [id number]. Garima Pulliam Covid-19 PCR (CVDTB)on SARS-CoV-2 (COVID-19) RNA MARIE+probe Ql (Unsp spec) Not detected Normal NOT DETECTED [facility] Comment on above: Result Comment: [...] for this test is supported by the [place] of Health and Human Service's declaration that [...] used). Performed By: #### C VDTBH ####[facility] Bilmkddnny[address] [place] [address]Dr. Garima Pulliam LACTATE/LACTIC ACIDon 2021 Lactate [Moles/Vol] 1.7 mmol/L Normal 0.4-1.9 [facility] Comment on above: Performed By: #### L ACT ####[facility] Jhcmnmcijh[address] [place], [place] [address]Dr. Garima Pulliam PROF 14(COMP METB)on 022 Albumin [Mass/Vol] 3.8 g/dL Normal 3.4-5.0 [facility] Comment on above: Performed By: #### C MP, BNP, CMADM ####[facility] Upksmxzysw[address] [place], [place] [address]Dr. Garima Pulliam Albumin/Globulin [Mass ratio] 1.5 {ratio} Normal [facility] Comment on above: Performed By: #### C MP, BNP, CMADM ####[facility] Sy[address]cyyq[address] [place] [address]Dr. Garima Pulliam ALP [Catalytic activity/Vol] 62 U/L Normal 46-116 [facility] Comment on above: Performed By: #### C MP, BNP, CMADM ####[facility] Euybzuqbgk8183 [place] [address]Dr. Garima Pulliam ALT [Catalytic activity/Vol] 37 U/L Normal 16-63 [facility] Comment on above: Performed By: #### C MP, BNP, CMADM ####[facility] Gonnzviwje1548 [place] [address]Dr. Garima Pulliam Anion gap [Moles/Vol] 8.0 mmol/L Normal [facility] Comment on above: Performed By: #### C MP, BNP, CMADM ####[facility] Dmnrhecupp8929 [place] [address]Dr. Garima Pulliam AST [Catalytic activity/Vol] 20 U/L Normal 15-37 [facility] Comment on above: Performed By: #### C MP, BNP, CMADM ####[facility] Kqvtwtqbak74[address] [place] [address]Dr. Garima Pulliam Bilirubin [Mass/Vol] 0.6 mg/dL Normal 0.2-1.0 [facility] Comment on above: Performed By: #### C MP, BNP, CMADM ####[facility] Bwspgkxmtn3732 [place] [address]Dr. Garima Pulliam Calcium [Mass/Vol] 9.1 mg/dL Normal 8.5-10.1 [facility] Comment on above: Performed By: #### C MP, BNP, CMADM ####[facility] Irjcmiqupc[address] [place], [place] [address]Dr. Garima Pulliam Chloride [Moles/Vol] 103 mmol/L Normal 98-107 [facility] Comment on above: Performed By: #### C MP, BNP, CMADM ####[facility] Ebtmfcaw[address] [place], [place] [address]Dr. Garima Pulliam CO2 [Moles/Vol] 31.8 mmol/L Normal 21.0-32.0 [facility] Comment on above: Performed By: #### C MP, BNP, CMADM ####[facility] Lprzmoinfa[address] [place], [place] [address]Dr. Garima Pulliam Creatinine [Mass/Vol] 0.63 mg/dL Critically low 0.70-1.30 [facility] Comment on above: Performed By: #### C MP, BNP, CMADM ####[facility] Sbzsrvyvit[address] [place], [place] [address]Dr. Garima Pulliam EGFR-AF GIBRALTARIAN >60 Normal >=60 [facility] Comment on above: Performed By: #### C MP, BNP, CMADM ####[facility] Iorcxugfsv[address] [place], [place] [address]Dr. Garima Pulliam EGFR-NON AF GIBRALTARIAN >60 Normal >=60 [facility] Comment on above: Performed By: #### C MP, BNP, CMADM ####[facility] Eqbciyysvw5865 [place] [address]Dr. Garima Pulliam Globulin (S) [Mass/Vol] 2.6 g/dL Normal [facility] Comment on above: Performed By: #### C MP, BNP, CMADM ####[facility] Yknygoqaue6815 [place] [address]Dr. Garima Pulliam Glucose [Mass/Vol] 103 mg/dL Normal 74-106 [facility] Comment on above: Performed By: #### C MP, BNP, CMADM ####[facility] Rbpclcdkwm4890 [place] [address]Dr. Garima Pulliam Potassium [Moles/Vol] 3.8 mmol/L Normal 3.5-5.1 [facility] Comment on above: Performed By: #### C MP, BNP, CMADM ####[facility] Rrkdlmfbdn4644 [place] [address]Dr. Garima Pulliam Protein [Mass/Vol] 6.4 g/dL Normal 6.4-8.2 [facility] Comment on above: Performed By: #### C MP, BNP, CMADM ####[facility] Elytlmqtsy6869 [place] [address]Dr. Garima Pulliam Sodium [Moles/Vol] 139 mmol/L Normal 136-145 [facility] Comment on above: Performed By: #### C MP, BNP, CMADM ####[facility] Ahwphzgqqf3905 [place] [address]Dr. Garima Pulliam Urea nitrogen [Mass/Vol] 7.0 mg/dL Normal 7.0-18.0 [facility] Comment on above: Performed By: #### C MP, BNP, CMADM ####[facility] Sexdlppipx3625 [place] [address]Dr. Garima Pulliam Urea nitrogen/Creatinine [Mass ratio] 11.1 mg/mg Normal [facility] Comment on above: Performed By: #### C MP, BNP, CMADM ####[facility] Iaewmvbnva3489 [place] [address]Dr. Garima Pulliam PROTIMEon 09-29-2022 INR Coag (PPP) [Relative time] 1.14 {INR} Normal [facility] Comment on above: Performed By: #### P T, PTT ####[facility] Gyqsjanvvg[address] [place], [place] [address]Dr. Garima Pulliam INR GUIDELINES SEE BELOW Normal [facility] Comment on above: Result Comment: WESLEY RED INR: 2.0 - 3.0 CONDITIONS NOT LISTED BELOW 2.5 - 3.5 FOR PROSTHETIC HEART VALVE REPLACEMENT 2.5 - 3.5 RECURRENT THROMBOSIS Performed By: #### P T, PTT ####[facility] Ncmcgqylqv[address] [place], [place] [address]Dr. Garima Pulliam PT Coag (PPP) [Time] 12.2 s Critically high 9.0-11.6 [facility] Comment on above: Performed By: #### P T, PTT ####[facility] Sswvwqdnyn[address] [place], [place] [address]Dr. Garima Pulliam PTTon 09-29-2022 aPTT Coag (Bld) [Time] 29.3 s Normal 22.3-36.2 [facility] Comment on above: Performed By: #### P T, PTT ####[facility] Ksasspnwpw[address] [place], [place] [address]Dr. Garima Pulliam XR CHEST 1 Von 09-29-2022 XR CHEST 1 V Normal [facility] CBC AUTO DIFFon 09-26-2022 BASO # 0.0 103/ul Normal 0.0-0.1 [facility] Comment on above: Performed By: #### C BC ####[facility] Mawjaqymmo[address] [place], [place] [address]Dr. Garima Pulliam Basophils/100 WBC (Bld) 0.2 % Normal 0.2-2.0 [facility] Comment on above: Performed By: #### C BC ####[facility] Iqjzyejqfg[address] [place], [place] [address]Dr. Garima Pulliam EO # 0.1 103/ul Normal 0.0-0.7 [facility] Comment on above: Performed By: #### C BC ####[facility] Aqkwwjqxdh[address] [place], [place] [address]Dr. Garima Pulliam Eosinophils/100 WBC (Bld) 1.0 % Normal 0.9-7.0 [facility] Comment on above: Performed By: #### C BC ####[facility] Mmnlxfdofw[address] [place], [place] [address]Dr. Garima Pulliam Erythrocyte distribution width (RBC) [Ratio] 13.4 % Normal 11.0-15.0 [facility] Comment on above: Performed By: #### C BC ####[facility] Vfvwouqhjv685[address] [place], [place] [address]Dr. Garima Pulliam Hematocrit (Bld) [Volume fraction] 46.3 % Normal 42.0-54.0 [facility] Comment on above: Performed By: #### C BC ####[facility] Ocxovavvij484[address] [place], [place] [address]Dr. Garima Pulliam Hemoglobin (Bld) [Mass/Vol] 15.3 g/dL Normal 14.0-18.0 [facility] Comment on above: Performed By: #### C BC ####[facility] Shmaouunzz99[address] [place], [place] [address]Dr. Garima Pulliam IG # 0.05 10e3/ul Critically high 0.00-0.03 [facility] Comment on above: Performed By: #### C BC ####[facility] Zuyprnwpdp[address] [place], [place] [address]Dr. Garima Pulliam IG % 0.4 % Normal 0.0-0.5 [facility] Comment on above: Performed By: #### C BC ####[facility] [address]qwjvdyctm[address] [place], [place] [address]Dr. Garima Pulliam LYMPH # 1.7 103/ul Normal 1.2-3.8 [facility] Comment on above: Performed By: #### C BC ####[facility] Ftatfaeuil[address] [place], [place] [address]Dr. Garima Pulliam Lymphocytes/100 WBC (Bld) 12.7 % Critically low 20.5-60.0 [facility] Comment on above: Performed By: #### C BC ####[facility] Fyfbysrjly20[address] [place] [address]DrAdalberto Pulliam MANUAL DIFF REQ NO Normal [facility] Comment on above: Performed By: #### C BC ####[facility] Fbyamjsuid[address] [place] [address]Dr. Garima Pulliam MCH (RBC) [Entitic mass] 30.1 pg Normal 25.9-34.0 [facility] Comment on above: Performed By: #### C BC ####[facility] Aualpvevnw039[address] [place], [place] [address]Dr. Garima Pulliam MCHC (RBC) [Mass/Vol] 33.0 g/dL Normal 29.9-35.2 [facility] Comment on above: Performed By: #### C BC ####[facility] Patgmenavb618[address] [place], [place] [address]DrAdalberto Pulliam MCV (RBC) [Entitic vol] 91.1 fL Normal 80.0-94.0 [facility] Comment on above: Performed By: #### C BC ####[facility] Xfclgbxcwe[address] [place], [place] [address]DrAdalberto Pulliam MONO # 0.9 103/ul Critically high 0.3-0.8 [facility] Comment on above: Performed By: #### C BC ####[facility] Bskkycocut[address] [place], [place] [address]DrAdalberto Pulliam Monocytes/100 WBC (Bld) 7.0 % Normal 1.7-12.0 [facility] Comment on above: Performed By: #### C BC ####[facility] Shtjevsfsr[address] [place], [place] [address]DrAdalberto Pulliam NEUT # 10.4 103/ul Critically high 1.4-6.5 [facility] Comment on above: Performed By: #### C BC ####[facility] Foavkcoyvt000[address] [place], [place] [address]DrAdalberto Pulliam Neutrophils/100 WBC (Bld) 78.7 % Critically high 43.0-75.0 [facility] Comment on above: Performed By: #### C BC ####[facility] Yhfrdyhddx1087 [place] [address]Dr. Garima Pulliam Platelet mean volume (Bld) [Entitic vol] 8.9 fL Critically low 9.5-13.5 [facility] Comment on above: Performed By: #### C BC ####[facility] Hweamzyfxd9425 [place] [address]Dr. Garima Pulliam PLT 195 103/ul Normal 150-450 [facility] Comment on above: Performed By: #### C BC ####[facility] Jjxpffygpc[address] [place], [place] [address]Dr. Garima Pulliam RBC 5.08 106/ul Normal 4.70-6.10 [facility] Comment on above: Performed By: #### C BC ####[facility] Klbxijzcvo[address] [place], [place] [address]Dr. Garima Pulliam WBC 13.2 103/ul Critically high 4.0-11.0 [facility] Comment on above: Performed By: #### C BC ####[facility] Ovdqrwcwts[address] [place], [place] [address]Dr. Garima Pulliam PROF 14(COMP METB)on 022 Albumin [Mass/Vol] 3.5 g/dL Normal 3.4-5.0 [facility] Comment on above: Performed By: #### C DAVID HSTROPN ####[facility] Rinsmgdiup5[address] [place] [address]Dr. Garima Pulliam Albumin/Globulin [Mass ratio] 1.2 {ratio} Normal [facility] Comment on above: Performed By: #### C RAFAT HERNANDEZTROPN ####[facility] Gytlittfai[address] [place] [address]Dr. Garima Pulliam ALP [Catalytic activity/Vol] 71 U/L Normal 46-116 [facility] Comment on above: Performed By: #### C DAVID HSTROPN ####[facility] Zzvfhespfr0897 [place] [address]Dr. Garima Pulliam ALT [Catalytic activity/Vol] 37 U/L Normal 16-63 [facility] Comment on above: Performed By: #### C DAVID, HSTROPN ####[facility] Orearxpjbd4582 [place] [address]Dr. Garima Pulliam Anion gap [Moles/Vol] 4.8 mmol/L Normal [facility] Comment on above: Performed By: #### C DAVID, HSTROPN ####[facility] T[address]czprml[address] [place], [place] [address]Dr. Garima Pulliam AST [Catalytic activity/Vol] 21 U/L Normal 15-37 [facility] Comment on above: Performed By: #### C DAVID, HSTROPN ####[facility] Uupgfzoqgj[address] [place], [place] [address]Dr. Garima Pulliam Bilirubin [Mass/Vol] 0.3 mg/dL Normal 0.2-1.0 [facility] Comment on above: Performed By: #### C DAVID, HSTROPN ####[facility] Ybpieuscnr33[address] [place] [address]Dr. Garima Pulliam Calcium [Mass/Vol] 8.9 mg/dL Normal 8.5-10.1 [facility] Comment on above: Performed By: #### C DAVID, HSTROPN ####[facility] Mbniilqumh6624 [place] [address]Dr. Garima Pulliam Chloride [Moles/Vol] 106 mmol/L Normal 98-107 [facility] Comment on above: Performed By: #### C DAVID, HSTROPN ####[facility] Wznfdenjbz7470 [place] [address]Dr. Garima Pulliam CO2 [Moles/Vol] 29.8 mmol/L Normal 21.0-32.0 [facility] Comment on above: Performed By: #### C DAVID, HSTROPN ####[facility] Oahtippxvc1618 [place] [address]Dr. Garima Pulliam Creatinine [Mass/Vol] 0.68 mg/dL Critically low 0.70-1.30 [facility] Comment on above: Performed By: #### C MP, HSTROPN ####[facility] Vrbypqrsou34[address] [place] [address]Dr. Garima Pulliam EGFR-AF GIBRALTARIAN >60 Normal >=60 [facility] Comment on above: Performed By: #### C MP, HSTROPN ####[facility] Txcrjpdrjh[address] [place] [address]Dr. Chapislan Pulliam EGFR-NON AF GIBRALTARIAN >60 Normal >=60 [facility] Comment on above: Performed By: #### C MP, HSTROPN ####[facility] Ztzwculhkr[address] [place] [address]Dr. Garima Pulliam Globulin (S) [Mass/Vol] 2.8 g/dL Normal [facility] Comment on above: Performed By: #### C MP, HSTROPN ####[facility] Makjlqfnfj4339 [place] [address]Dr. Garima Pulliam Glucose [Mass/Vol] 133 mg/dL Critically high 74-106 [facility] Comment on above: Performed By: #### C MP, HSTROPN ####[facility] Ydbglqpkpp4583 [place] [address]Dr. Chapisrenu Pulliam Potassium [Moles/Vol] 3.6 mmol/L Normal 3.5-5.1 [facility] Comment on above: Performed By: #### C MP, HSTROPN ####[facility] Yvlmkdxbez0270 [place] [address]Dr. Chapisrenu Pulliam Protein [Mass/Vol] 6.3 g/dL Critically low 6.4-8.2 [facility] Comment on above: Performed By: #### C MP, HSTROPN ####[facility] Fborqdqghg[address] [place], [place] [address]Dr. Chapisrenu Pulliam Sodium [Moles/Vol] 137 mmol/L Normal 136-145 [facility] Comment on above: Performed By: #### C MP, HSTROPN ####[facility] Tupuvvjulb[address] [place], [place] [address]Dr. Garima Pulliam Urea nitrogen [Mass/Vol] 15.0 mg/dL Normal 7.0-18.0 [facility] Comment on above: Performed By: #### C DAVID HSTROPN ####[facility] Tdbcpvcnml8473 [place] [address]Dr. Chapisrenu Pulliam Urea nitrogen/Creatinine [Mass ratio] 22.1 mg/mg Normal [facility] Comment on above: Performed By: #### C DAVID HSTROPN ####[facility] Ifqmzenpvu0216 [place] [address]Dr. Garima Heraclio TROPONIN, HIGH SENSITIVITYon 09-26-2022 HSTROP 12.8 pg/mL Normal 4.0-76.1 [facility] Comment on above: Result Comment: CUT- OFF POINTS HAVE BEEN ESTABLISHED BASED ON THE FOURTH UNIVERSAL DEFINITIONS OF MYOCARDIALINFARCTION. THE UPPER REFERENCE LIMIT (URL) OF TROPONIN, DEFINED THE 99TH PERCENTILE OFcTnI DISTRIBUTION IN A REFERENCE POPULATION, HAS BEEN CONFIRMED THE DECISION THRESHOLDFOR MD DIAGNOSIS. Performed By: #### C DAVID HSTROPN ####[facility] Awngemzztz7387 [place] [address]Dr. Chapisrenu Pulliam XR CHEST 1 Von 09-26-2022 XR CHEST 1 V Normal [facility] XR CHEST 1 Von 09-16-2022 XR CHEST 1 V Normal [facility] CBC AUTO DIFFon 09-15-2022 BASO # 0.0 103/ul Normal 0.0-0.1 [facility] Comment on above: Performed By: #### C BC ####[facility] Vicrwindev9983 [place] [address]Dr. Garima Heraclio Basophils/100 WBC (Bld) 0.1 % Critically low 0.2-2.0 [facility] Comment on above: Performed By: #### C BC ####[facility] Ahyikvwtkj9726 [place] [address]Dr. Garima Pulliam EO # 0.0 103/ul Normal 0.0-0.7 [facility] Comment on above: Performed By: #### C BC ####[facility] Qkkdvaauvb0948 [place] [address]Dr. Garima Pulliam Eosinophils/100 WBC (Bld) 0.1 % Critically low 0.9-7.0 [facility] Comment on above: Performed By: #### C BC ####[facility] Tnhizkwxtb2016 [place] [address]Dr. Garima Pulliam Erythrocyte distribution width (RBC) [Ratio] 14.1 % Normal 11.0-15.0 [facility] Comment on above: Performed By: #### C BC ####[facility] Aiumybayau[address] [place], [place] [address]Dr. Garima Pulliam Hematocrit (Bld) [Volume fraction] 46.1 % Normal 42.0-54.0 [facility] Comment on above: Performed By: #### C BC ####[facility] Mshlvqqhdv35[address] [place], [place] [address]Dr. Garima Pulliam Hemoglobin (Bld) [Mass/Vol] 15.0 g/dL Normal 14.0-18.0 [facility] Comment on above: Performed By: #### C BC ####[facility] Cvavznpvly[address] [place], [place] [address]Dr. Garima Pulliam IG # 0.03 10e3/ul Normal 0.00-0.03 [facility] Comment on above: Performed By: #### C BC ####[facility] Vcwcobodfs8[address] [place], [place] [address]Dr. Garima Pulliam IG % 0.3 % Normal 0.0-0.5 [facility] Comment on above: Performed By: #### C BC ####[facility] Opxserayrb67[address] [place], [place] [address]Dr. Garima Pulliam LYMPH # 0.6 103/ul Critically low 1.2-3.[address] [facility] Comment on above: Performed By: #### C BC ####[facility] Lsktfznluv558[address] [place], [place] [address]Dr. Garima Pulliam Lymphocytes/100 WBC (Bld) 5.8 % Critically low 20.5-60.0 [facility] Comment on above: Performed By: #### C BC ####[facility] Cdepbtxsor6552 [place] [id number]. Garima Pulliam MANUAL DIFF REQ NO Normal [facility] Comment on above: Performed By: #### C BC ####[facility] Ptmivoxiek4010 [place] [id number]. Garima Pulliam MCH (RBC) [Entitic mass] 30.2 pg Normal 25.9-34.0 [facility] Comment on above: Performed By: #### C BC ####[facility] Lfelagatog7733 [place] [address]Dr. Garima Pulliam MCHC (RBC) [Mass/Vol] 32.5 g/dL Normal 29.9-35.2 [facility] Comment on above: Performed By: #### C BC ####[facility] Zeoaxmdfvs8644 [place] [address]Dr. Garima Pulliam MCV (RBC) [Entitic vol] 92.8 fL Normal 80.0-94.0 [facility] Comment on above: Performed By: #### C BC ####[facility] Eysievarqj9721 [place] [address]Dr. Garima Heraclio MONO # 0.3 103/ul Normal 0.3-0.8 [facility] Comment on above: Performed By: #### C BC ####[facility] Ensamcdlfl7838 [place] [id number]. Garima Heraclio Monocytes/100 WBC (Bld) 3.2 % Normal 1.7-12.0 [facility] Comment on above: Performed By: #### C BC ####[facility] Scvqjfaxlc7808 [place] [id number]. Garima Pulliam NEUT # 9.8 103/ul Critically high 1.4-6.5 [facility] Comment on above: Performed By: #### C BC ####[facility] Hmwhlxktuj0746 [place] [id number]. Garima Pulliam Neutrophils/100 WBC (Bld) 90.5 % Critically high 43.0-75.0 [facility] Comment on above: Performed By: #### C BC ####[facility] Ukeguethtu6001 [place] [id number]. Garima Pulliam Platelet mean volume (Bld) [Entitic vol] 9.4 fL Critically low 9.5-13.5 [facility] Comment on above: Performed By: #### C BC ####[facility] Rkmzfmlwgm1872 [place] [id number]. Garima Pulliam PLT 208 103/ul Normal 150-450 [facility] Comment on above: Performed By: #### C BC ####[facility] Cikxkcuudj5217 [place] [address]Dr. Garima Pulliam RBC 4.97 106/ul Normal 4.70-6.10 [facility] Comment on above: Performed By: #### C BC ####[facility] Ehautggnfj2064 [place] [address]Dr. Garima Pulliam WBC 10.8 103/ul Normal 4.0-11.0 [facility] Comment on above: Performed By: #### C BC ####[facility] Wcuibwubmq6279 [place] [address]Dr. Garima Pulliam PROF 14(COMP METB)on 022 Albumin [Mass/Vol] 4.0 g/dL Normal 3.4-5.0 [facility] Comment on above: Performed By: #### C MP ####[facility] Sygtybqxyt5005 [place] [address]Dr. Garima Pulliam Albumin/Globulin [Mass ratio] 1.5 {ratio} Normal [facility] Comment on above: Performed By: #### C MP ####[facility] Uooljkfikf3671 [place] [address]Dr. Garima Pulliam ALP [Catalytic activity/Vol] 73 U/L Normal 46-116 [facility] Comment on above: Performed By: #### C MP ####[facility] Jericqxfgd1581 [place] [address]Dr. Garima Pulliam ALT [Catalytic activity/Vol] 42 U/L Normal 16-63 [facility] Comment on above: Performed By: #### C MP ####[facility] Uzqiwaazdl3577 [place] [address]Dr. Garima Pulliam Anion gap [Moles/Vol] 9.1 mmol/L Normal [facility] Comment on above: Performed By: #### C MP ####[facility] Neritfwiog90[address] [place], [place] [address]Dr. Garima Pulliam AST [Catalytic activity/Vol] 28 U/L Normal 15-37 [facility] Comment on above: Performed By: #### C MP ####[facility] Cxyvrttwuy280[address] [place], [place] [address]Dr. Garima Pulliam Bilirubin [Mass/Vol] 0.6 mg/dL Normal 0.2-1.0 [facility] Comment on above: Performed By: #### C MP ####[facility] Gavzhbxnez959[address] [place], [place] [address]Dr. Garima Pulliam Calcium [Mass/Vol] 8.6 mg/dL Normal 8.5-10.1 [facility] Comment on above: Performed By: #### C MP ####[facility] Aoflwekmev639[address] [place], [place] [address]Dr. Garima Pulliam Chloride [Moles/Vol] 105 mmol/L Normal 98-107 [facility] Comment on above: Performed By: #### C MP ####[facility] Srjkngqawe[address] [place], [place] [address]Dr. Garima Pulliam CO2 [Moles/Vol] 28.5 mmol/L Normal 21.0-32.0 [facility] Comment on above: Performed By: #### C MP ####[facility] Pwtkissdei49[address] [place], [place] [address]Dr. Garima Heraclio Creatinine [Mass/Vol] 0.78 mg/dL Normal 0.70-1.30 [facility] Comment on above: Performed By: #### C MP ####[facility] Ggfvqjajac658[address] [place], [place] [address]Dr. Chapisrenu Heraclio EGFR-AF GIBRALTARIAN >60 Normal >=60 [facility] Comment on above: Performed By: #### C MP ####[facility] Aiupgwkyat258[address] [place], [place] [address]Dr. Garima Pulliam EGFR-NON AF GIBRALTARIAN >60 Normal >=60 [facility] Comment on above: Performed By: #### C MP ####[facility] Fbxrizpitl9630 [place] [address]Dr. Garima Pulliam Globulin (S) [Mass/Vol] 2.7 g/dL Normal [facility] Comment on above: Performed By: #### C MP ####[facility] Vahlzftavf2469 [place] [address]Dr. Garima Pulliam Glucose [Mass/Vol] 220 mg/dL Critically high 74-106 T [facility] Comment on above: Performed By: #### C MP ####[facility] Hraahbicqd8649 [place] [address]Dr. Garima Pulliam Potassium [Moles/Vol] 3.6 mmol/L Normal 3.5-5.1 [facility] Comment on above: Performed By: #### C MP ####[facility] Zmhdxezbkf97[address] [place], [place] [address]Dr. Garima Pulliam Protein [Mass/Vol] 6.7 g/dL Normal 6.4-8.2 [facility] Comment on above: Performed By: #### C MP ####[facility] Qrezszxjfc970[address] [place], [place] [address]Dr. Garima Pulliam Sodium [Moles/Vol] 139 mmol/L Normal 136-145 [facility] Comment on above: Performed By: #### C MP ####[facility] Zyogsfkuzh005[address] [place], [place] [address]Dr. Garima Pulliam Urea nitrogen [Mass/Vol] 11.0 mg/dL Normal 7.0-18.0 [facility] Comment on above: Performed By: #### C MP ####[facility] Eaekelcsbl277[address] [place], [place] [address]Dr. Garima Pulliam Urea nitrogen/Creatinine [Mass ratio] 14.1 mg/mg Normal [facility] Comment on above: Performed By: #### C MP ####[facility] Tnmmmaggsw94[address] [place], [place] [address]Dr. Garima Pulliam CARDIAC NASH 3-6on 2 CK [Catalytic activity/Vol] 240 U/L Normal 39-308 [facility] Comment on above: Performed By: #### C MREP ####[facility] Xkgwemrsjz6613 [place] [address]Dr. Garima Pulliam CK.MB [Mass/Vol] 10.38 ng/mL Critically high <=3.60 [facility] Comment on above: Performed By: #### C MREP ####[facility] Iryyripnyg0626 [place] [address]Dr. Garima Pulliam HSTROP 18.5 pg/mL Normal 4.0-76.1 [facility] Comment on above: Result Comment: CUT- OFF POINTS HAVE BEEN ESTABLISHED BASED ON THE FOURTH UNIVERSAL DEFINITIONS OF MYOCARDIALINFARCTION. THE UPPER REFERENCE LIMIT (URL) OF TROPONIN, DEFINED THE 99TH PERCENTILE OFcTnI DISTRIBUTION IN A REFERENCE POPULATION, HAS BEEN CONFIRMED THE DECISION THRESHOLDFOR MD DIAGNOSIS. Performed By: #### C MREP ####[facility] Turfvlahai6813 [place] [address]Dr. Garima Pulliam CK [Catalytic activity/Vol] 257 U/L Normal 39-308 [facility] Comment on above: Performed By: #### C MREP ####[facility] Hlevhzguyv256[address] [place], [place] [address]Dr. Garima Pulliam CK.MB [Mass/Vol] 9.89 ng/mL Critically high <=3.60 [facility] Comment on above: Performed By: #### C MREP ####[facility] Rmpfqoumac1240[address] [place], [place] [address]Dr. Garima Pulliam HSTROP 16.9 pg/mL Normal 4.0-76.1 [facility] Comment on above: Result Comment: CUT- OFF POINTS HAVE BEEN ESTABLISHED BASED ON THE FOURTH UNIVERSAL DEFINITIONS OF MYOCARDIALINFARCTION. THE UPPER REFERENCE LIMIT (URL) OF TROPONIN, DEFINED THE 99TH PERCENTILE OFcTnI DISTRIBUTION IN A REFERENCE POPULATION, HAS BEEN CONFIRMED THE DECISION THRESHOLDFOR MD DIAGNOSIS. Performed By: #### C MREP ####[facility] Ofgshmmjal0456 [place] [address]Dr. Garima Heraclio CBC AUTO DIFFon 10-22-2022 BASO # 0.0 103/ul Normal 0.0-0.1 [facility] Comment on above: Performed By: #### C BC ####[facility] Avzdlwbaqq8735 [place] [id number]. Garima Pulliam Basophils/100 WBC (Bld) 0.1 % Critically low 0.2-2.0 [facility] Comment on above: Performed By: #### C BC ####[facility] Zadfnglyta0540 [place] [address]Dr. Garima Pulliam EO # 0.0 103/ul Normal 0.0-0.7 [facility] Comment on above: Performed By: #### C BC ####[facility] Ahwppphjii95[address] [place], [place] [address]Dr. Chapisrenu Heraclio Eosinophils/100 WBC (Bld) 0.0 % Critically low 0.9-7.0 [facility] Comment on above: Performed By: #### C BC ####[facility] Bykkiekmhx701[address] [place], [place] [address]Dr. Garima Pulliam Erythrocyte distribution width (RBC) [Ratio] 13.6 % Normal 11.0-15.0 [facility] Comment on above: Performed By: #### C BC ####[facility] Ikcqyvtmua658[address] [place], [place] [address]Dr. Garima Pulliam Hematocrit (Bld) [Volume fraction] 48.2 % Normal 42.0-54.0 [facility] Comment on above: Performed By: #### C BC ####[facility] Zsysnqqush5055[address] [place], [place] [address]Dr. Garima Pulliam Hemoglobin (Bld) [Mass/Vol] 16.0 g/dL Normal 14.0-18.0 [facility] Comment on above: Performed By: #### C BC ####[facility] Dgbzhyrzpv079[address] [place], [place] [address]Dr. Chapisrenu Heraclio IG # 0.02 10e3/ul Normal 0.00-0.03 [facility] Comment on above: Performed By: #### C BC ####[facility] Yjufmrrtrq6790 [place] [id number]. Garima Pulliam IG % 0.3 % Normal 0.0-0.5 [facility] Comment on above: Performed By: #### C BC ####[facility] Upiupuuzjg1185 [place] [address]Dr. Gariam Heraclio LYMPH # 0.5 103/ul Critically low 1.2-3.[address] [facility] Comment on above: Performed By: #### C BC ####[facility] Xyzegxqttb3980 [place] [address]Dr. Garima Heraclio Lymphocytes/100 WBC (Bld) 7.7 % Critically low 20.5-60.0 [facility] Comment on above: Performed By: #### C BC ####[facility] Rjattrufur024[address] [place], [place] [address]Dr. Chapisrenu Pulliam MANUAL DIFF REQ NO Normal [facility] Comment on above: Performed By: #### C BC ####[facility] Ufnfgbuysv830[address] [place], [place] [address]Dr. Garima Heraclio MCH (RBC) [Entitic mass] 30.6 pg Normal 25.9-34.0 [facility] Comment on above: Performed By: #### C BC ####[facility] Delexpnoly045[address] [place], [place] [address]Dr. Garima Pulliam MCHC (RBC) [Mass/Vol] 33.2 g/dL Normal 29.9-35.2 [facility] Comment on above: Performed By: #### C BC ####[facility] Vgkmncsajj846[address] [place], [place] [address]Dr. Garima Heraclio MCV (RBC) [Entitic vol] 92.2 fL Normal 80.0-94.0 [facility] Comment on above: Performed By: #### C BC ####[facility] Ethvdyjruj248[address] [place], [place] [address]Dr. Garima Pulliam MONO # 0.0 103/ul Critically low 0.3-0.[address] [facility] Comment on above: Performed By: #### C BC ####[facility] Jkrvqvykly0484 [place] [id number]. Garima Pulliam Monocytes/100 WBC (Bld) 0.4 % Critically low 1.7-12.0 [facility] Comment on above: Performed By: #### C BC ####[facility] Qknbckhwjx3488 [place] [id number]. Garima Pulliam NEUT # 6.2 103/ul Normal 1.4-6.5 [facility] Comment on above: Performed By: #### C BC ####[facility] Fcpmjkzbjc4317 [place] [address]Dr. Garima Pulliam Neutrophils/100 WBC (Bld) 91.5 % Critically high 43.0-75.0 [facility] Comment on above: Performed By: #### C BC ####[facility] Wzgtizfsfo1327 [place] [address]Dr. Garima Pulliam Platelet mean volume (Bld) [Entitic vol] 8.7 fL Critically low 9.5-13.5 [facility] Comment on above: Performed By: #### C BC ####[facility] Zxvlkladhp7762 [place] [address]Dr. Garima Pulliam PLT 179 103/ul Normal 150-450 [facility] Comment on above: Performed By: #### C BC ####[facility] Rcxdtkluji4136 [place] [id number]. Garima Pulliam RBC 5.23 106/ul Normal 4.70-6.10 [facility] Comment on above: Performed By: #### C BC ####[facility] Lyzuyotros9247 [place] [address]Dr. Garima Pulliam WBC 6.7 103/ul Normal 4.0-11.0 [facility] Comment on above: Performed By: #### C BC ####[facility] Vwtemwjshl1496 [place] [address]Dr. Garima Pulliam PROF CHEM 8 (BAS METB)on Anion gap [Moles/Vol] 12.1 mmol/L Normal Th [facility] Comment on above: Performed By: #### B MP ####[facility] Hgnvnuzvft6287 [place] [id number]. Garima Pulliam Calcium [Mass/Vol] 8.7 mg/dL Normal 8.5-10.1 [facility] Comment on above: Performed By: #### B MP ####[facility] Ttpxscqdnp6877 [place] [id number]. Garima Pulliam Chloride [Moles/Vol] 105 mmol/L Normal 98-107 [facility] Comment on above: Performed By: #### B MP ####[facility] Nqcwddqmap4489 [place] [id number]. Garima Pulliam CO2 [Moles/Vol] 25.5 mmol/L Normal 21.0-32.0 [facility] Comment on above: Performed By: #### B MP ####[facility] Sbxupzldfa0780 [place] [address]Dr. Garima Pulliam Creatinine [Mass/Vol] 0.63 mg/dL Critically low 0.70-1.30 [facility] Comment on above: Performed By: #### B MP ####[facility] Yasairrmws2421 [place] [address]Dr. Garima Pulliam EGFR-AF GIBRALTARIAN >60 Normal >=60 [facility] Comment on above: Performed By: #### B MP ####[facility] Qpeabnihdb5273 [place] [address]Dr. Garima Pulliam EGFR-NON AF GIBRALTARIAN >60 Normal >=60 [facility] Comment on above: Performed By: #### B MP ####[facility] Olnvwsyeeb0475 [place] [address]Dr. Garima Pulliam Glucose [Mass/Vol] 162 mg/dL Critically high 74-106 [facility] Comment on above: Performed By: #### B MP ####[facility] Oixnkptdtc264[address] [place], [place] [address]Dr. Garima Pulliam Potassium [Moles/Vol] 3.6 mmol/L Normal 3.5-5.1 [facility] Comment on above: Performed By: #### B MP ####[facility] Twfzsdcsoi060[address] [place], [place] [address]Dr. Garima Pulliam Sodium [Moles/Vol] 139 mmol/L Normal 136-145 [facility] Comment on above: Performed By: #### B DAVID ####[facility] Gvldnuvtbv1415 [place] [address]Dr. Garima Pulliam Urea nitrogen [Mass/Vol] 9.0 mg/dL Normal 7.0-18.0 [facility] Comment on above: Performed By: #### B DAVID ####[facility] Kadihummhl8063 [place] [address]Dr. Garima Pulliam Urea nitrogen/Creatinine [Mass ratio] 14.3 mg/mg Normal [facility] Comment on above: Performed By: #### B DAVID ####[facility] Erxngrukog9877 [place] [address]Dr. Chapisrenu Pulliam CARDIAC NASH ADMITon 09-12- 022 CK [Catalytic activity/Vol] 304 U/L Normal 39-308 [facility] Comment on above: Performed By: #### B NANCY HERNANDEZ ####[facility] Srhnnfdnvx2999 [place] [address]Dr. Garima Pulliam CK.MB [Mass/Vol] 11.81 ng/mL Critically high <=3.60 [facility] Comment on above: Performed By: #### B NANCY HERNANDEZ ####[facility] Xruulybtuu2346 [place] [address]Dr. Garima Heraclio HSTROP 13.3 pg/mL Normal 4.0-76.1 [facility] Comment on above: Result Comment: CUT- OFF POINTS HAVE BEEN ESTABLISHED BASED ON THE FOURTH UNIVERSAL DEFINITIONS OF MYOCARDIALINFARCTION. THE UPPER REFERENCE LIMIT (URL) OF TROPONIN, DEFINED THE 99TH PERCENTILE OFcTnI DISTRIBUTION IN A REFERENCE POPULATION, HAS BEEN CONFIRMED THE DECISION THRESHOLDFOR MD DIAGNOSIS. Performed By: #### B NANCY HERNANDEZ ####[facility] Neldxyafml2714 [place] [address]Dr. Garima Pulliam DORIS 133 ng/mL Critically high 16-96 [facility] Comment on above: Performed By: #### B NANCY HERNANDEZ ####[facility] Puqmbrdcfs7030 [place] [address]Dr. Garima Pulliam CBC AUTO DIFFon 09-12-2022 BASO # 0.0 103/ul Normal 0.0-0.1 [facility] Comment on above: Performed By: #### C BC ####[facility] Lwg[address]rhjbw[address] [place], [place] [address]Dr. Garima Heraclio Basophils/100 WBC (Bld) 0.2 % Normal 0.2-2.0 [facility] Comment on above: Performed By: #### C BC ####[facility] Laleatetgq94[address] [place], [place] [address]Dr. Garima Heraclio EO # 0.2 103/ul Normal 0.0-0.7 [facility] Comment on above: Performed By: #### C BC ####[facility] Ixpgilnubi717[address] [place], [place] [address]Dr. Chapisrenu Pulliam Eosinophils/100 WBC (Bld) 1.3 % Normal 0.9-7.0 [facility] Comment on above: Performed By: #### C BC ####[facility] Mhwynonvci27[address] [place], [place] [address]Dr. Garima Pulliam Erythrocyte distribution width (RBC) [Ratio] 13.7 % Normal 11.0-15.0 [facility] Comment on above: Performed By: #### C BC ####[facility] Ucvmfcleip184[address] [place], [place] [address]Dr. Garima Pulliam Hematocrit (Bld) [Volume fraction] 46.4 % Normal 42.0-54.0 [facility] Comment on above: Performed By: #### C BC ####[facility] Yfvmgoiiid235[address] [place], [place] [address]Dr. Garima Pulliam Hemoglobin (Bld) [Mass/Vol] 15.7 g/dL Normal 14.0-18.0 [facility] Comment on above: Performed By: #### C BC ####[facility] Tgtmmkspqc908[address] [place], [place] [address]Dr. Garima Pulliam IG # 0.04 10e3/ul Critically high 0.00-0.03 [facility] Comment on above: Performed By: #### C BC ####[facility] Kdqzuwzfmb2850 [place] [id number]. Garima Pulliam IG % 0.3 % Normal 0.0-0.5 [facility] Comment on above: Performed By: #### C BC ####[facility] Vnitwzgpmv1317 [place] [id number]. Garima Pulliam LYMPH # 1.7 103/ul Normal 1.2-3.8 [facility] Comment on above: Performed By: #### C BC ####[facility] Gghffezdbz8048 [place] [id number]. Garima Pulliam Lymphocytes/100 WBC (Bld) 11.5 % Critically low 20.5-60.0 [facility] Comment on above: Performed By: #### C BC ####[facility] Srmltjuqto2108 [place] [id number]. Garima Pulliam MANUAL DIFF REQ NO Normal [facility] Comment on above: Performed By: #### C BC ####[facility] Wnhcfjmkcj1811 [place] [id number]. Garima Pulliam MCH (RBC) [Entitic mass] 31.0 pg Normal 25.9-34.0 [facility] Comment on above: Performed By: #### C BC ####[facility] Ltzteomnjv0267 [place] [id number]. Garima Pulliam MCHC (RBC) [Mass/Vol] 33.8 g/dL Normal 29.9-35.2 [facility] Comment on above: Performed By: #### C BC ####[facility] Fifqxayzrb9108 [place] [id number]. Garima Pulliam MCV (RBC) [Entitic vol] 91.7 fL Normal 80.0-94.0 [facility] Comment on above: Performed By: #### C BC ####[facility] [address] [place] [id number]. Garima Heraclio MONO # 0.8 103/ul Normal 0.3-0.8 [facility] Comment on above: Performed By: #### C BC ####[facility] [address] [place] [id number]. Garima Pulliam Monocytes/100 WBC (Bld) 5.2 % Normal 1.7-12.0 [facility] Comment on above: Performed By: #### C BC ####[facility] [address] [place] [id number]. Garima Pulliam NEUT # 11.7 103/ul Critically high 1.4-6.5 [facility] Comment on above: Performed By: #### C BC ####[facility] [address] [place] [id number]. Garima Pulliam Neutrophils/100 WBC (Bld) 81.5 % Critically high 43.0-75.0 [facility] Comment on above: Performed By: #### C BC ####[facility] [address] [place] [address]Dr. Garima Pulliam Platelet mean volume (Bld) [Entitic vol] 8.6 fL Critically low 9.5-13.5 [facility] Comment on above: Performed By: #### C BC ####[facility] [address] [place] [id number]. Garima Pulliam PLT 191 103/ul Normal 150-450 [facility] Comment on above: Performed By: #### C BC ####[facility] [address] [place], [place] [address]Dr. Garima Pulliam RBC 5.06 106/ul Normal 4.70-6.10 [facility] Comment on above: Performed By: #### C BC ####[facility] [address] [place], [place] [address]Dr. Garima Pulliam WBC 14.4 103/ul Critically high 4.0-11.0 [facility] Comment on above: Performed By: #### C BC ####[facility] [address] [place], [place] [address]Dr. Garima Pulliam [facility]24 SARS-CoV-2 (COVID-19) RNA MARIE+probe Ql (Unsp spec) Not detected Normal NOT DETECTED [facility] Comment on above: Result Comment: When [...] for this test is supported by the Home Care Giver of Health and Human Service's declaration that [...] used). Performed By: #### C VDTBH ####[facility] [address] [place], [place] [address]Dr. Garima Pulliam LACTATE/LACTIC ACIDon 2021 Lactate [Moles/Vol] 1.0 mmol/L Normal 0.4-1.9 [facility] Comment on above: Performed By: #### L ACT ####[facility] [address] [place], [place] [address]Dr. Garima Pulliam PROF CHEM 8 (BAS METB)on Anion gap [Moles/Vol] 11.6 mmol/L Normal [facility] Comment on above: Performed By: #### B NANCY HERNANDEZ ####[facility] [address] [place] [address]Dr. Garima Pulliam Calcium [Mass/Vol] 9.2 mg/dL Normal 8.5-10.1 [facility] Comment on above: Performed By: #### B NANCY HERNANDEZ ####[facility] [address] [place] [address]Dr. Garima Pulliam Chloride [Moles/Vol] 105 mmol/L Normal 98-107 [facility] Comment on above: Performed By: #### B MP, CMADM ####[facility] [address] [place] [id number]. Garima Pulliam CO2 [Moles/Vol] 25.9 mmol/L Normal 21.0-32.0 [facility] Comment on above: Performed By: #### B DAVID, CMADM ####[facility] [address] [place] [address]Dr. Garima Pulliam Creatinine [Mass/Vol] 0.72 mg/dL Normal 0.70-1.30 [facility] Comment on above: Performed By: #### B DAVID, CMADM ####[facility] [address] [place] [id number]. Garima Pulliam EGFR-AF GIBRALTARIAN >60 Normal >=60 [facility] Comment on above: Performed By: #### B DAVID, CMADM ####[facility] [address] [place] [address]Dr. Chapisrenu Pulliam EGFR-NON AF GIBRALTARIAN >60 Normal >=60 [facility] Comment on above: Performed By: #### B DAVID, CMAANA ROSA ####[facility] [address] [place] [address]Dr. Garima Pulliam Glucose [Mass/Vol] 111 mg/dL Critically high 74-106 [facility] Comment on above: Performed By: #### B DAVID, CMADM ####[facility] [address] [place] [address]Dr. Chapisrenu Pulliam Potassium [Moles/Vol] 3.5 mmol/L Normal 3.5-5.1 [facility] Comment on above: Performed By: #### B DAVID, CMADM ####[facility] [address] [place] [address]Dr. Chapisrenu Pulliam Sodium [Moles/Vol] 139 mmol/L Normal 136-145 [facility] Comment on above: Performed By: #### B DAVID, CMADM ####[facility] [address] [place] [address]Dr. Garima Pulliam Urea nitrogen [Mass/Vol] 7.0 mg/dL Normal 7.0-18.0 [facility] Comment on above: Performed By: #### B DAVID, CMADM ####[facility] [address] [place], [place] [address]Ln. Garima Pulliam Urea nitrogen/Creatinine [Mass ratio] 9.7 mg/mg Normal [facility] Comment on above: Performed By: #### B MP, CMADM ####[facility] [address] [place], [place] [address]Qk. Garima Pulliam XR CHEST 1 Von 09-12-2022 XR CHEST 1 V Normal [facility] Encounters Encounter Date Encounter Type [...] Facility:H1 Payers Date Payer Category Payer Unknown [id number] 1960 Medicaid [id number] 1960 Unknown [id number] 1960 Unknown [id number] 1954 Unknown [id number] 2.16.84 0.1.754487.3.579.2.593 1954 Unknown [id number] 2.16.84 0.1.829390.3.579.2.593 1954 Unknown [id number] 2.16.84 0.1.214991.3.579.2.593 1954 Unknown [id number] 2.16.84 0.1.849474.3.579.2.593 1954 Unknown [id number] 2.16.84 0.1.409862.3.579.2.593 1954 Unknown [id number] 2.16.84 0.1.466363.3.579.2.593 1954 Unknown [id number] 2.16.84 0.1.475157.3.579.2.593 1954 Unknown [id number] 2.16.84 0.1.808961.3.579.2.593 1954 Unknown [id number] 2.16.84 0.1.610270.3.579.2.593 1954 Unknown [id number] 2.16.84 0.1.175715.3.579.2.593 1954 Unknown [id number] 2.16.84 0.1.899903.3.579.2.593 1954 Unknown [id number] 2.16.84 0.1.730730.3.579.2.593 1954 Unknown [id number] 2.16.84 0.1.295331.3.579.2.593 1954 Unknown [id number] 2.16.84 0.1.439879.3.579.2.593 1954 Unknown [id number] 2.16.84 0.1.127269.3.579.2.593 1954 Unknown [id number] 2.16.84 0.1.387256.3.579.2.593 1954 Unknown [id number] 2.16.84 0.1.557600.3.579.2.593 1954 Unknown [id number] 2.16.84 0.1.256261.3.579.2.593 1954 Unknown [id number] 2.16.84 0.1.574507.3.579.2.593 1954 Unknown [id number] 2.16.84 0.1.066333.3.579.2.593 Summary Purpose Family History No Family History Records Found Advance Directives No Advanced Directives Records Found Additional Source Comments (unrecognized sect ion and content) No Status Records Found INFORMATION SOURCE (unrecogn ized section and content) DATE CREATED AUTHOR 04/08/2023 [facility] FOR RECORDS PERTAINING TO [...] BE BASED ON THE PRIMARY CLINICAL RECORDS. [facility] [employer] [facility]. provides no warranty or guarantee of the accuracy or completeness of information in this document.
[2024-10-02 03:46] VITALS: O2SAT 96
[2024-10-02 04:12] VITALS: PULSE 84; O2SAT 92
[2024-10-02] MEDS: IPRATROPIUM/ALBUTEROL SULFATE 3 ML AMPUL.NEB IH (04:12)
--- NOTE | 2024-10-02 04:31 | ED.GENADUL1 ---
HPI HPI - General Adult General Chief complaint: Shortness of Breath/Dyspnea Stated complaint: sob Time Seen by Provider: 10/02/24 03:34 Source: patient Mode of arrival: Wheelchair Limitations: no limitations History of Present Illness HPI narrative: 69-year-old male to the emergency department with chief complaint of shortness of breath. Patient reports he has not yet got his medications. He reports that he needs a breathing treatment. He does not want any other workup. He denies any chest pain. Related Data Home Medications ?Medication ?Instructions ?Recorded ?Confirmed albuterol sulfate 90 mcg/actuation 2 inh inhalation Q6H PRN shortness 03/13/24 10/02/24 aerosol inhaler of breath or wheezing Previous Rx's ?Medication ?Instructions ?Recorded losartan 100 mg tablet 100 mg PO DAILY #30 tabs 12/27/23 albuterol sulfate 2.5 mg/3 mL 2.5 mg (3 mL) inhalation Q6H PRN 05/26/24 (0.083 %) solution for nebulization shortness of breath or wheezing #90 mL loratadine 10 mg tablet (Claritin) 10 mg PO DAILY #20 tabs 05/30/24 albuterol sulfate 2.5 mg/3 mL 2.5 mg (3 mL) inhalation Q6H PRN 08/07/24 (0.083 %) solution for nebulization shortness of breath or wheezing #90 mL albuterol sulfate 90 mcg/actuation 2 inh inhalation Q4H PRN shortness 08/07/24 aerosol inhaler of breath or wheezing #8.5 grams albuterol sulfate 2.5 mg/3 mL 1.25 mg (1.5 mL) inhalation Q6H 09/04/24 (0.083 %) solution for nebulization PRN bronchospasm #75 mL albuterol sulfate 90 mcg/actuation 2 inh inhalation Q6H PRN shortness 09/04/24 aerosol inhaler of breath or wheezing #6.7 grams albuterol sulfate 2.5 mg/3 mL 2.5 mg (3 mL) inhalation Q6H PRN 09/12/24 (0.083 %) solution for nebulization shortness of breath or wheezing #90 mL azithromycin 250 mg tablet See Rx Instructions PO .COMPLEX #6 09/21/24 (Zithromax Z-Luis) tabs prednisone 20 mg tablet See Rx Instructions .Route 09/21/24 .COMPLEX #12 tabs albuterol sulfate 2.5 mg/0.5 mL 2.5 mg (0.5 mL) inhalation Q4H PRN 10/02/24 solution for nebulization shortness of breath or wheezing #30 ea albuterol sulfate 90 mcg/actuation 2 inh inhalation Q4H PRN shortness 10/02/24 aerosol inhaler of breath or wheezing #6.7 grams Allergies Allergy/AdvReac Type Severity Reaction Status Date / Time No Known Drug Allergies Allergy Verified 10/02/24 03:40 Opioid HPI Opioid Management Most Recent Opioid Data: Last ORT Total Score 0 01/29/24 06:36 01/29/24 Last ORT Risk Category Low Risk 01/29/24 06:36 01/29/24 Review of Systems ROS Status of ROS 10 or more systems reviewed and unremarkable except as noted in history and below [facility] Medical History (Updated 10/02/24 @ 03:46 by Abdullahi Ivory MD) Hypokalemia ?E87.6 - Hypokalemia (ICD-10) New onset type 2 diabetes mellitus ?E11.9 - Type 2 diabetes mellitus without complications (ICD-10) Lower extremity edema ?R60.0 - Localized edema (ICD-10) Edema ?R60.9 - Edema, unspecified (ICD-10) Acute hyperglycemia ?R73.9 - Hyperglycemia, unspecified (ICD-10) Tobacco abuse ?Z72.0 - Tobacco use (ICD-10) HTN (hypertension) ?I10 - Essential (primary) hypertension (ICD-10) Community acquired pneumonia ?J18.9 - Pneumonia, unspecified organism (ICD-10) Chronic obstructive pulmonary disease ?J44.9 - Chronic obstructive pulmonary disease, unspecified (ICD-10) Acute exacerbation of chronic obstructive pulmonary disease (COPD) ?J44.1 - Chronic obstructive pulmonary disease with (acute) exacerbation (ICD-10) RLL pneumonia ?J18.9 - Pneumonia, unspecified organism (ICD-10) COPD (chronic obstructive pulmonary disease) ?J44.9 - Chronic obstructive pulmonary disease, unspecified (ICD-10) Surgical History (Updated 01/29/24 @ 06:45 by Latonia Martin RN) Hx of tonsillectomy ?Z90.89 - Acquired absence of other organs (ICD-10) Family History (Updated 12/25/23 @ 21:28 by Kym Ordaz) Mother Family history of cancer Family history of hypertension Father Family history of cancer Social History Within the past year, how often did you have a drink containing alcohol: 4 or more times a week Within the past year, how many standard drinks containing alcohol did you have on a typical day: 3 or 4 Within the past year, how often did you have six or more drinks on one occasion: less than monthly Total score: 3 Score interpretation: A score of 4 or more indicates drinking is likely to affect patient's safety. Smoking status: Current every day smoker Non-prescribed substance use: cannabis (any form) Previous occupational history: retired Highest level of school completed/degree received: high school graduate Are you now , , , , never or living with a partner: In a typical week, how many times do you talk on the telephone with family, friends, or neighbors: twice per week How often do you get together with friends or relatives: once per week How often do you attend tenriism or restorationist services: never Do you belong to any clubs or organizations such as tenriism groups unions, fraternal or athletic groups, or school groups: no Total score: 1 Score interpretation: A score of less than or equal to 1 indicates the most socially isolated. Little interest or pleasure in doing things: not at all Feeling down, depressed, or hopeless: not at all Feel stressed/tense/nervous/anxious/difficulty sleeping: not at all Do you think of yourself as: straight/heterosexual Gender Identity: male Exam Narrative Exam Narrative: VITALS: I have reviewed the triage vital signs. GENERAL: Well developed, well appearing adult in no acute distress. NEURO: Alert and oriented. Moves all extremities. Face is symmetric and expressive. EYES: PERRL. No scleral icterus or conjunctival injection. No discharge. HENT: Normocephalic, atraumatic. Hearing is grossly intact. Nares grossly patent and without discharge. Mucous membranes moist. NECK: No JVD. Patient moves neck without restriction. CARDIO: Rhythm regular. Normal rate. No murmur, rub, or gallop. Pulses equal bilaterally in the upper and lower extremity. No lower extremity edema. PULM: Lungs clear to auscultation in all juarez. No wheezes, rales, or rhonchi. No conversational dyspnea. No splinting, stridor, or accessory muscle use. GI/: Abdomen is soft and non-tender. Normoactive bowel sounds. EXTREMITIES: Symmetric muscle bulk. No joint swelling. No clubbing, cyanosis, or deformity. SKIN: Warm and dry. Normal turgor. No rash or lesions appreciated. PSYCH: Mood, affect, and interaction is appropriate to the setting. Constitutional Vital Signs, click to edit/add: Last Vital Signs Temp 98.2 F 10/02/24 03:38 Pulse 84 10/02/24 04:12 Resp 18 10/02/24 04:12 BP 192/105 H 10/02/24 03:38 Pulse Ox 92 L 10/02/24 04:12 O2 Del Method Room Air 10/02/24 04:12 Course Vital Signs Vital signs: Vital Signs Temperature 98.2 F 10/02/24 03:38 Pulse Rate 89 10/02/24 03:38 Respiratory Rate 24 H 10/02/24 03:38 Blood Pressure 192/105 H 10/02/24 03:38 Pulse Oximetry 96 10/02/24 03:38 Oxygen Delivery Method Room Air 10/02/24 03:38 Temperature 98.2 F 10/02/24 03:38 Pulse Rate 84 10/02/24 04:12 Respiratory Rate 18 10/02/24 04:12 Blood Pressure 192/105 H 10/02/24 03:38 Pulse Oximetry 92 L 10/02/24 04:12 Oxygen Delivery Method Room Air 10/02/24 04:12 Medical Decision Making [facility] Narrative Medical decision making narrative: Breathing treatment was given. He declines any other workup or treatment. patient remained stable. He is given a prescription for breathing treatments. He has an albuterol inhaler already. He will orange picker his previously prescribed prescriptions tomorrow. Patient was discharged home. Medical Records Medical records reviewed: Yes I reviewed the patient's medical records Discharge Plan Discharge Chief Complaint: Shortness of Breath/Dyspnea Clinical Impression: COPD exacerbation Patient Disposition: Home, Self-Care Time of Disposition Decision: 03:46 Condition: Good Mode of Transportation: Private Vehicle Prescriptions / Home Meds: New albuterol sulfate 2.5 mg/0.5 mL solution for nebulization 2.5 mg inhalation Q4H PRN (Reason: shortness of breath or wheezing) Qty: 30 2RF albuterol sulfate 90 mcg/actuation HFA aerosol inhaler 2 inh inhalation Q4H PRN (Reason: shortness of breath or wheezing) Qty: 6.7 0RF No Action losartan 100 mg tablet 100 mg PO DAILY Qty: 30 11RF albuterol sulfate 90 mcg/actuation HFA aerosol inhaler 2 inh inhalation Q6H PRN (Reason: shortness of breath or wheezing) albuterol sulfate 2.5 mg /3 mL (0.083 %) solution for nebulization 2.5 mg inhalation Q6H PRN (Reason: shortness of breath or wheezing) Qty: 90 0RF albuterol sulfate 2.5 mg /3 mL (0.083 %) solution for nebulization 2.5 mg inhalation Q6H PRN (Reason: shortness of breath or wheezing) Qty: 90 0RF albuterol sulfate 90 mcg/actuation HFA aerosol inhaler 2 inh inhalation Q4H PRN (Reason: shortness of breath or wheezing) Qty: 8.5 0RF albuterol sulfate 2.5 mg /3 mL (0.083 %) solution for nebulization 2.5 mg inhalation Q6H PRN (Reason: shortness of breath or wheezing) Qty: 90 0RF azithromycin [Zithromax Z-Luis] 250 mg tablet See Rx Instructions .ROUTE .COMPLEX Qty: 6 0RF Rx Instructions: For 250 mg dose pack: take 500 mg today (day 1), then 250 mg for 4 days (days 2-5) prednisone 20 mg tablet See Rx Instructions .ROUTE .COMPLEX Qty: 12 0RF Rx Instructions: 3 tabs daily for 2 days, then 2 tabs daily for 2 days, then 1 tab daily for 2 days loratadine [Claritin] 10 mg tablet 10 mg PO DAILY Qty: 20 0RF albuterol sulfate 2.5 mg /3 mL (0.083 %) solution for nebulization 1.25 mg inhalation Q6H PRN (Reason: bronchospasm) Qty: 75 0RF albuterol sulfate 90 mcg/actuation HFA aerosol inhaler 2 inh inhalation Q6H PRN (Reason: shortness of breath or wheezing) Qty: 6.7 0RF Print Language: Sierra Leonean Instructions: How to Use a Metered-Dose Inhaler (ED), COPD (Chronic Obstructive Pulmonary Disease) (ED), How to Use a Nebulizer (ED), Nutrition Guidelines for People with COPD (ED) Referrals: SERG DUENAS [Primary Care Provider] - 1 week
[2024-10-02 04:34] VITALS: BP 160/80
== END 2024-10-02 04:35 | disposition home or self-care (01) ==
PROVIDERS: Emergency Provider Student in an Organized Health Care Education/Training Program
DX: J44.1 Chronic obstructive pulmonary disease with (acute) exacerbation (principal); F17.200 Nicotine dependence, unspecified, uncomplicated
CPT/HCPCS: 94640; 99283

== ENCOUNTER 2024-10-07 21:34 | Emergency (ER) | payer MEDICARE, MEDICAID, SELFPAY ==
[2024-10-07 21:40] VITALS: PULSE 109; TEMP 37.1; O2SAT 94; BMI 23.7
--- OUTSIDE RECORDS SUMMARY | 2024-10-07 21:42 | XMS_ITS | CCD ---
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 Garima Pulliam Basophils/100 WBC (Bld) 0.3 % Normal 0.2-2.0 [facility] Comment on above: Performed By: #### C BC ####[facility] Wyyqgnhhct5[address] [place] [address]DrAdalberto Pulliam EO # 0.3 103/ul Normal 0.0-0.7 [facility] Comment on above: Performed By: #### C BC ####[facility] [address] [place], [place] [address]Dr. Garima Pulliam Eosinophils/100 WBC (Bld) 2.8 % Normal 0.9-7.0 [facility] Comment on above: Performed By: #### C BC ####[facility] Vcudptprmi30[address] [place] [address]Dr. Garima Pulliam Erythrocyte distribution width (RBC) [Ratio] 13.4 % Normal 11.0-15.0 [facility] Comment on above: Performed By: #### C BC ####[facility] Txebzsdfzx[address] [place] [address]Dr. Garima Pulliam Hematocrit (Bld) [Volume fraction] 45.7 % Normal 42.0-54.0 [facility] Comment on above: Performed By: #### C BC ####[facility] Plysglddzi35[address] [place] [address]Dr. Garima Pulliam Hemoglobin (Bld) [Mass/Vol] 15.2 g/dL Normal 14.0-18.0 [facility] Comment on above: Performed By: #### C BC ####[facility] Kvkrtdkerh[address] [place] [address]Dr. Garima Pulliam IG # 0.02 10e3/ul Normal 0.00-0.03 [facility] Comment on above: Performed By: #### C BC ####[facility] Uvlhubawbn2721 [place] [address]Dr. Garima Pulliam IG % 0.2 % Normal 0.0-0.5 [facility] Comment on above: Performed By: #### C BC ####[facility] Rqwmghtnim5[address] [place] [address]Dr. Garima Pulliam LYMPH # 2.1 103/ul Normal 1.2-3.8 [facility] Comment on above: Performed By: #### C BC ####[facility] Fibpdsxsnw380[address] [place] [address]Dr. Garima Pulliam Lymphocytes/100 WBC (Bld) 23.7 % Normal 20.5-60.0 [facility] Comment on above: Performed By: #### C BC ####[facility] Srbuxrqofw[address] [place] [address]Dr. Garima Heraclio MANUAL DIFF REQ NO Normal [facility] Comment on above: Performed By: #### C BC ####[facility] Izpogeppuc[address] [place] [address]Dr. Garima Pulliam MCH (RBC) [Entitic mass] 30.4 pg Normal 25.9-34.0 [facility] Comment on above: Performed By: #### C BC ####[facility] Tcpbmywpjy[address] [place] [address]Dr. Garima Heraclio MCHC (RBC) [Mass/Vol] 33.3 g/dL Normal 29.9-35.2 [facility] Comment on above: Performed By: #### C BC ####[facility] Lqvadgzddw[address] [place], [place] [address]Dr. Chapisrenu Pulliam MCV (RBC) [Entitic vol] 91.4 fL Normal 80.0-94.0 [facility] Comment on above: Performed By: #### C BC ####[facility] Knchpjmyjh[address] [place], [place] [address]Dr. Garima Heraclio MONO # 0.7 103/ul Normal 0.3-0.8 [facility] Comment on above: Performed By: #### C BC ####[facility] Oabvnjxgcz[address] [place], [place] [address]Dr. Chapisrenu Pulliam Monocytes/100 WBC (Bld) 8.3 % Normal 1.7-12.0 [facility] Comment on above: Performed By: #### C BC ####[facility] Utpcouuftr[address] [place] [address]Dr. Chapisrenu Heraclio NEUT # 5.8 103/ul Normal 1.4-6.5 [facility] Comment on above: Performed By: #### C BC ####[facility] Gscpargpby[address] [place], [place] [address]Dr. Garima Pulliam Neutrophils/100 WBC (Bld) 64.7 % Normal 43.0-75.0 [facility] Comment on above: Performed By: #### C BC ####[facility] Clrkkfjivj1887 [place] [address]Dr. Garima Pulliam Platelet mean volume (Bld) [Entitic vol] 8.6 fL Critically low 9.5-13.5 [facility] Comment on above: Performed By: #### C BC ####[facility] Vszldawchg8043 [place] [address]Dr. Garima Pulliam PLT 230 103/ul Normal 150-450 [facility] Comment on above: Performed By: #### C BC ####[facility] Yfxdjezdnp7645 [place] [address]Dr. Chapisrenu Heraclio RBC 5.00 106/ul Normal 4.70-6.10 [facility] Comment on above: Performed By: #### C BC ####[facility] Yjdeyploib7193 [place] [address]Dr. Garima Heraclio WBC 9.0 103/ul Normal 4.0-11.0 [facility] Comment on above: Performed By: #### C BC ####[facility] Popsqxjzic9721 [place] [address]Dr. Garima Pulliam MAGNESIUMon 04-04-2023 Magnesium [Mass/Vol] 1.8 mg/dL Normal 1.8-2.4 [facility] Comment on above: Performed By: #### M G ####[facility] Ppimgwrdzr6369 [place] [address]Dr. Chapisrenu Pulliam PROF 14(COMP METB)on 023 Albumin [Mass/Vol] 3.8 g/dL Normal 3.4-5.0 [facility] Comment on above: Performed By: #### C MP ####[facility] Ztdkxrmdye6469 [place] [address]Dr. Garima Pulliam Albumin/Globulin [Mass ratio] 1.2 {ratio} Normal [facility] Comment on above: Performed By: #### C MP ####[facility] Vsnmtrnlzj6926 [place] [address]Dr. Garima Heraclio ALP [Catalytic activity/Vol] 84 U/L Normal 46-116 [facility] Comment on above: Performed By: #### C MP ####[facility] Cpmvuihucc6244 [place] [address]Dr. Garima Pulliam ALT [Catalytic activity/Vol] 31 U/L Normal 16-63 [facility] Comment on above: Performed By: #### C MP ####[facility] Hbuyrpvgaz4442 [place] [address]Dr. Garima Pulliam Anion gap [Moles/Vol] 12.2 mmol/L Normal [facility] Comment on above: Performed By: #### C MP ####[facility] Qlhmqnatoe7134 [place] [address]Dr. Garima Pulliam AST [Catalytic activity/Vol] 23 U/L Normal 15-37 [facility] Comment on above: Performed By: #### C MP ####[facility] Qqqjaybqwn[address] [place], [place] [address]Dr. Garima Pulliam Bilirubin [Mass/Vol] 0.5 mg/dL Normal 0.2-1.0 [facility] Comment on above: Performed By: #### C MP ####[facility] Tzmckeivwl86[address] [place], [place] [address]Dr. Garima Pulliam Calcium [Mass/Vol] 9.2 mg/dL Normal 8.5-10.1 [facility] Comment on above: Performed By: #### C MP ####[facility] Fernfpuqtj[address] [place], [place] [address]Dr. Garima Pulliam Chloride [Moles/Vol] 103 mmol/L Normal 98-107 [facility] Comment on above: Performed By: #### C MP ####[facility] Nioqxnskxo8513 [place] [address]Dr. Garima Pulliam CO2 [Moles/Vol] 28.5 mmol/L Normal 21.0-32.0 [facility] Comment on above: Performed By: #### C MP ####[facility] Ksiupwnsxm[address] [place], [place] [address]Dr. Garima Pulliam Creatinine [Mass/Vol] 0.74 mg/dL Normal 0.70-1.30 [facility] Comment on above: Performed By: #### C MP ####[facility] Igbmtapojb9572 [place] [address]Dr. Garima Pulliam EGFR-AF ECUADOREAN >60 Normal >=60 [facility] Comment on above: Performed By: #### C MP ####[facility] Vqhonblrqc6596 [place] [address]Dr. Garima Heraclio EGFR-NON AF ECUADOREAN >60 Normal >=60 [facility] Comment on above: Performed By: #### C MP ####[facility] Mfdwamwads4617 [place] [address]Dr. Garima Heraclio Globulin (S) [Mass/Vol] 3.1 g/dL Normal [facility] Comment on above: Performed By: #### C MP ####[facility] Lggiunsfmh[address] [place], [place] [address]Dr. Garima Heraclio Glucose [Mass/Vol] 93 mg/dL Normal 74-106 [facility] Comment on above: Performed By: #### C MP ####[facility] Hkyscotflz[address] [place], [place] [address]Dr. Garima Heraclio Potassium [Moles/Vol] 3.7 mmol/L Normal 3.5-5.1 [facility] Comment on above: Performed By: #### C MP ####[facility] Djkgsmbtuq67[address] [place], [place] [address]Dr. Garima Heraclio Protein [Mass/Vol] 6.9 g/dL Normal 6.4-8.2 [facility] Comment on above: Performed By: #### C MP ####[facility] Mxhvflaica[address] [place], [place] [address]Dr. Garima Heraclio Sodium [Moles/Vol] 140 mmol/L Normal 136-145 [facility] Comment on above: Performed By: #### C MP ####[facility] Upuftakldx[address] [place], [place] [address]Dr. Garima Pulliam Urea nitrogen [Mass/Vol] 8.0 mg/dL Normal 7.0-18.0 [facility] Comment on above: Performed By: #### C MP ####[facility] Avzitunhyn[address] [place], [place] [address]Dr. Garima Pulliam Urea nitrogen/Creatinine [Mass ratio] 10.8 mg/mg Normal [facility] Comment on above: Performed By: #### C DAVID ####[facility] Epttdnugfl6539 [place] [address]Dr. Garima Pulliam AMMONIAon 03-30-2023 Ammonia (P) [Moles/Vol] 11 umol/L Normal 11-32 [facility] Comment on above: Performed By: #### A MM ####[facility] Qpcezlfsto[address] [place], [place] [address]Dr. Garima Pulliam CARDIAC NASH ADMITon 023 CK [Catalytic activity/Vol] 232 U/L Normal 39-308 [facility] Comment on above: Performed By: #### C NANCY HERNANDEZ ####[facility] Lwqrjswgbk7000 [place] [address]Dr. Chapisrenu Pulliam CK.MB [Mass/Vol] 4.83 ng/mL Critically high <=3.60 [facility] Comment on above: Performed By: #### C NANCY HERNANDEZ ####[facility] Z[address]hkq[address]zc[address] [place], [place] [address]Dr. Garima Pulliam HSTROP 10.5 pg/mL Normal 4.0-76.1 [facility] Comment on above: Result Comment: CUT- OFF POINTS HAVE BEEN ESTABLISHED BASED ON THE FOURTH UNIVERSAL DEFINITIONS OF MYOCARDIALINFARCTION. THE UPPER REFERENCE LIMIT (URL) OF TROPONIN, DEFINED THE 99TH PERCENTILE OFcTnI DISTRIBUTION IN A REFERENCE POPULATION, HAS BEEN CONFIRMED THE DECISION THRESHOLDFOR CA DIAGNOSIS. Performed By: #### C NANCY HERNANDEZ ####[facility] [address]mftgbtv[address] [place], [place] [address]Dr. Garima Heraclio DORIS 79 ng/mL Normal 16-96 [facility] Comment on above: Performed By: #### C NANCY HERNANDEZ ####[facility] Dsonkgogzm[address] [place], [place] [address]Dr. Garima Heraclio CBC AUTO DIFFon 03-30-2023 BASO # 0.0 103/ul Normal 0.0-0.1 [facility] Comment on above: Performed By: #### C BC ####[facility] Dzgarbqnqw0681 [place] [address]Dr. Garima Pulliam Basophils/100 WBC (Bld) 0.1 % Critically low 0.2-2.0 [facility] Comment on above: Performed By: #### C BC ####[facility] Sdricrobau3574 [place] [address]Dr. Garima Pulliam EO # 0.3 103/ul Normal 0.0-0.7 [facility] Comment on above: Performed By: #### C BC ####[facility] [address]px[address]zs[address] [place], [place] [address]Dr. Garima Pulliam Eosinophils/100 WBC (Bld) 3.3 % Normal 0.9-7.0 [facility] Comment on above: Performed By: #### C BC ####[facility] Rvkzwworjg[address] [place], [place] [address]Dr. Garima Pulliam Erythrocyte distribution width (RBC) [Ratio] 13.5 % Normal 11.0-15.0 [facility] Comment on above: Performed By: #### C BC ####[facility] Zfwxnhjhgq[address] [place], [place] [address]Dr. Garima Pulliam Hematocrit (Bld) [Volume fraction] 42.9 % Normal 42.0-54.0 [facility] Comment on above: Performed By: #### C BC ####[facility] Ncgjqiywxr[address] [place], [place] [address]Dr. Garima Pulliam Hemoglobin (Bld) [Mass/Vol] 13.9 g/dL Critically low 14.0-18.0 [facility] Comment on above: Performed By: #### C BC ####[facility] Txhykhgmua5572 [place] [address]Dr. Garima Pulliam IG # 0.01 10e3/ul Normal 0.00-0.03 [facility] Comment on above: Performed By: #### C BC ####[facility] Qfot[address]bzir[address] [place], [place] [address]Dr. Garima Pulliam IG % 0.1 % Normal 0.0-0.5 [facility] Comment on above: Performed By: #### C BC ####[facility] Aialidstty1707 [place] [address]Dr. Garima Pulliam LYMPH # 1.7 103/ul Normal 1.2-3.8 [facility] Comment on above: Performed By: #### C BC ####[facility] Fnz[address]ks[address]ee[address] [place], [place] [address]Je. Garima Pulliam Lymphocytes/100 WBC (Bld) 22.8 % Normal 20.5-60.0 [facility] Comment on above: Performed By: #### C BC ####[facility] Ldglzgypve0163 [place] [address]Dr. Garima Heraclio MANUAL DIFF REQ NO Normal [facility] Comment on above: Performed By: #### C BC ####[facility] Cjjnkuhylb0949 [place] [address]Dr. Garima Heraclio MCH (RBC) [Entitic mass] 30.5 pg Normal 25.9-34.0 [facility] Comment on above: Performed By: #### C BC ####[facility] Xpxdmvinwp0838 [place] [address]Dr. Garima Pulliam MCHC (RBC) [Mass/Vol] 32.4 g/dL Normal 29.9-35.2 [facility] Comment on above: Performed By: #### C BC ####[facility] Zoxhkyzcdk3391 [place] [address]Dr. Garima Heraclio MCV (RBC) [Entitic vol] 94.1 fL Critically high 80.0-94.0 [facility] Comment on above: Performed By: #### C BC ####[facility] Sdxcysbizb2705 [place] [address]Dr. Garima Heraclio MONO # 0.7 103/ul Normal 0.3-0.8 [facility] Comment on above: Performed By: #### C BC ####[facility] Bqcezbfrzz1611 [place] [address]Dr. Garima Heraclio Monocytes/100 WBC (Bld) 8.6 % Normal 1.7-12.0 [facility] Comment on above: Performed By: #### C BC ####[facility] Wqcwtulwxm2578 [place] [address]Dr. Garima Pulliam NEUT # 4.9 103/ul Normal 1.4-6.5 [facility] Comment on above: Performed By: #### C BC ####[facility] Ucbqnrdixu8286 [place] [address]Dr. Garima Pulliam Neutrophils/100 WBC (Bld) 65.1 % Normal 43.0-75.0 [facility] Comment on above: Performed By: #### C BC ####[facility] Xenxszslji7981 [place] [address]Dr. Garima Pulliam Platelet mean volume (Bld) [Entitic vol] 8.5 fL Critically low 9.5-13.5 [facility] Comment on above: Performed By: #### C BC ####[facility] Ocdkjfsabn3121 [place] [address]Dr. Garima Pulliam PLT 219 103/ul Normal 150-450 [facility] Comment on above: Performed By: #### C BC ####[facility] Vhxqwutcpj2372 [place] [address]Dr. Garima Pulliam RBC 4.56 106/ul Critically low 4.70-6.10 [facility] Comment on above: Performed By: #### C BC ####[facility] Vrsvqvijwt4726 [place] [address]Dr. Garima Pulliam WBC 7.6 103/ul Normal 4.0-11.0 [facility] Comment on above: Performed By: #### C BC ####[facility] Ytrtbvcvvh6980 [place] [address]Dr. Garima Pulliam LACTATE/LACTIC ACIDon 2022 Lactate [Moles/Vol] 1.2 mmol/L Normal 0.4-2.0 [facility] Comment on above: Performed By: #### L ACT ####[facility] Cfprzvjjzh9416 [place] [address]Dr. Garima Pulliam MAGNESIUMon 03-30-2023 Magnesium [Mass/Vol] 1.8 mg/dL Normal 1.8-2.4 [facility] Comment on above: Performed By: #### M G ####[facility] Uopwxhivwe7554 [place] [address]Dr. Garima Pulliam PROF 14(COMP METB)on 023 Albumin [Mass/Vol] 3.5 g/dL Normal 3.4-5.0 [facility] Comment on above: Performed By: #### C DAVID, CMAANA ROSA ####[facility] Nwwbuhwhuh8105 [place] [address]Dr. Garima Pulliam Albumin/Globulin [Mass ratio] 1.2 {ratio} Normal [facility] Comment on above: Performed By: #### C DAVID, CMAANA ROSA ####[facility] Nrvuiplizu1221 [place] [address]Dr. Garima Pulliam ALP [Catalytic activity/Vol] 85 U/L Normal 46-116 [facility] Comment on above: Performed By: #### C DAVID, CMAANA ROSA ####[facility] [address]bs[address]jjesq[address] [place], [place] [address]Dr. Garima Pulliam ALT [Catalytic activity/Vol] 29 U/L Normal 16-63 [facility] Comment on above: Performed By: #### C DAVID, CMAANA ROSA ####[facility] Qbrrcldxan5607 [place] [address]Dr. Garima Pulliam Anion gap [Moles/Vol] 8.0 mmol/L Normal [facility] Comment on above: Performed By: #### C DAVID, CMAANA ROSA ####[facility] Mybvlkwafl9652 [place] [address]Dr. Garima Pulliam AST [Catalytic activity/Vol] 18 U/L Normal 15-37 [facility] Comment on above: Performed By: #### C DAVID, CMADM ####[facility] Dmaxawbdwp5417 [place] [address]Dr. Garima Pulliam Bilirubin [Mass/Vol] 0.4 mg/dL Normal 0.2-1.0 [facility] Comment on above: Performed By: #### C DAVID, CMADM ####[facility] Wvlizzxemk5815 [place] [address]Dr. Garima Pulliam Calcium [Mass/Vol] 8.8 mg/dL Normal 8.5-10.1 [facility] Comment on above: Performed By: #### C DAVID, NANCY ####[facility] Ytqmhsakhi2788 [place] [address]Dr. Chapisrenu Pulliam Chloride [Moles/Vol] 108 mmol/L Critically high 98-107 [facility] Comment on above: Performed By: #### C DAVID, NANCY ####[facility] Wnggkgchff0116 [place] [address]Dr. Garima Pulliam CO2 [Moles/Vol] 29.6 mmol/L Normal 21.0-32.0 [facility] Comment on above: Performed By: #### C NANCY HERNANDEZ ####[facility] L[address]qnqst[address] [place], [place] [address]Dr. Garima Pulliam Creatinine [Mass/Vol] 0.77 mg/dL Normal 0.70-1.30 [facility] Comment on above: Performed By: #### C NANCY HERNANDEZ ####[facility] T[address]ppupm[address] [place], [place] [address]Dr. Garima Heraclio EGFR-AF ECUADOREAN >60 Normal >=60 [facility] Comment on above: Performed By: #### C NANCY HERNANDEZ ####[facility] Foxwskhyvw[address] [place], [place] [address]Dr. Garima Heraclio EGFR-NON AF ECUADOREAN >60 Normal >=60 [facility] Comment on above: Performed By: #### C NANCY HERNANDEZ ####[facility] Mttvkmurrr5451 [place] [address]Dr. Garima Pulliam Globulin (S) [Mass/Vol] 2.8 g/dL Normal [facility] Comment on above: Performed By: #### C NANCY HERNANDEZ ####[facility] Rqfigtkdnc1382 [place] [address]Dr. Garima Pulliam Glucose [Mass/Vol] 207 mg/dL Critically high 74-106 [facility] Comment on above: Performed By: #### C NANCY HERNANDEZ ####[facility] Rydqroocvm[address] [place], [place] [address]Dr. Garima Pulliam Potassium [Moles/Vol] 4.6 mmol/L Normal 3.5-5.1 [facility] Comment on above: Performed By: #### C DAVID, NANCY ####[facility] Sbwgbspmeo7437 [place] [address]Dr. Garima Pulliam Protein [Mass/Vol] 6.3 g/dL Critically low 6.4-8.2 Th e [facility] Comment on above: Performed By: #### C DAVID, NANCY ####[facility] Undmtibajz5240 [place] [address]Dr. Garima Pulliam Sodium [Moles/Vol] 141 mmol/L Normal 136-145 [facility] Comment on above: Performed By: #### C DAVID, NANCY ####[facility] Ieousfnzok2114 [place] [address]Dr. Garima Pulliam Urea nitrogen [Mass/Vol] 9.0 mg/dL Normal 7.0-18.0 [facility] Comment on above: Performed By: #### C DAVID, NANCY ####[facility] Ufmgumhxry4743 [place] [address]Dr. Garima Pulliam Urea nitrogen/Creatinine [Mass ratio] 11.7 mg/mg Normal [facility] Comment on above: Performed By: #### C DAVID, NANCY ####[facility] Kgyprdkmmb6347 [place] [address]Dr. Garima Pulliam XR CHEST 1 Von 03-30-2023 XR CHEST 1 V Normal [facility] BNPon 03-27-2023 Natriuretic peptide B (Bld) [Mass/Vol] 251.0 pg/mL Normal <=900.0 [facility] Comment on above: Performed By: #### C MP, BNP, LIPID ####[facility] Eolpdbddhl4750 [place] [address]Dr. Garima Pulliam GLYCOHEMOGLOBIN A1Con 2022 ADA RECOMMENDATION SEE BELOW Normal [facility] Comment on above: Result Comment: ADA RECOMMENDED LIMIT 4.0 - 6.0 ADA THERAPEUTIC TARGET < 7.0 ACTION SUGGESTED > 7.0 Performed By: #### A 1C ####[facility] Slaqfxvhvo5581 [place] [address]Dr. Garima Pulliam Glucose [Mass/Vol] 180 mg/dL Normal [facility] Comment on above: Performed By: #### A 1C ####[facility] [address]sczztlw[address] [place], [place] [address]Dr. Chapisrenu Pulliam HbA1c (Bld) [Mass fraction] 7.9 % Critically high 4.5-6.2 [facility] Comment on above: Performed By: #### A 1C ####[facility] Amkbzbkazc[address] [place], [place] [address]Dr. Garima Pulliam HEMOGRAM AND PLATELon 2022 Hematocrit (Bld) [Volume fraction] 45.7 % Normal 42.0-54.0 [facility] Comment on above: Performed By: #### H H ####[facility] Qwlovedfym[address] [place], [place] [address]Dr. Garima Pulliam Hemoglobin (Bld) [Mass/Vol] 15.1 g/dL Normal 14.0-18.0 [facility] Comment on above: Performed By: #### H H ####[facility] [address]mbfwtifp[address] [place], [place] [address]Dr. Garima Pulliam MCH (RBC) [Entitic mass] 30.0 pg Normal 25.9-34.0 [facility] Comment on above: Performed By: #### H H ####[facility] Yyhswjbnll[address] [place], [place] [address]Dr. Garima Pulliam MCHC (RBC) [Mass/Vol] 33.0 g/dL Normal 29.9-35.2 [facility] Comment on above: Performed By: #### H H ####[facility] Vrxlrfaiyh[address] [place], [place] [address]Dr. Garima Pulliam MCV (RBC) [Entitic vol] 90.7 fL Normal 80.0-94.0 [facility] Comment on above: Performed By: #### H H ####[facility] Ehkhhluzod[address] [place], [place] [address]Dr. Garima Pulliam PLT 222 103/ul Normal 150-450 [facility] Comment on above: Performed By: #### H H ####[facility] Eirgdqgnxn5288 [place] [address]Dr. Garima Pulliam RBC 5.04 106/ul Normal 4.70-6.10 [facility] Comment on above: Performed By: #### H H ####[facility] Dvjweeepzo8888 [place] [address]Dr. Garima Pulliam WBC 8.7 103/ul Normal 4.0-11.0 [facility] Comment on above: Performed By: #### H H ####[facility] [address]xit[address] [place] [id number]. Garima Pulliam LIPID PROFILEon 03-27-2023 CHOL-HDL RATIO NORM SEE BELOW Normal [facility] Comment on above: Result Comment: 3.3 - 4.4 LOW RISK 4.4 - 7.1 AVERAGE RISK 7.1 - 11.0 MODERATE RISK >11.0 HIGH RISK Performed By: #### C MP, BNP, LIPID ####[facility] [address] [place] [address]Dr. Garima Pulliam Cholesterol [Mass/Vol] 113 mg/dL Normal <=200 [facility] Comment on above: Performed By: #### C MP, BNP, LIPID ####[facility] [address]ff[address]jcbdrj[address] [place] [address]Dr. Garima Pulliam Cholesterol in HDL [Mass/Vol] 51 mg/dL Normal 40-60 [facility] Comment on above: Performed By: #### C MP, BNP, LIPID ####[facility] Wntwcjrmoh[address] [place] [address]Dr. Garima Pulliam Cholesterol in LDL [Mass/Vol] 49.8 mg/dL Normal [facility] Comment on above: Performed By: #### C MP, BNP, LIPID ####[facility] Purmbglwgo[address] [place] [address]Dr. Garima Pulliam Cholesterol.total/Cho lesterol in HDL [Mass ratio] 2.2 {ratio} Normal [facility] Comment on above: Performed By: #### C MP, BNP, LIPID ####[facility] Olbzetnwvs[address] [place] [address]Dr. Garima Pulliam HDL NORMAL > or = 60 mg/dl - LOW CARDIOVASCULAR RISK <40 mg/dl - HIGH CARDIOVASCULAR RISK Normal [facility] Comment on above: Performed By: #### C MP, BNP, LIPID ####[facility] [address]venlkfovl[address] [place] [address]Dr. Garima Pulliam LDL CALC NORMAL SEE BELOW Normal [facility] Comment on above: Result Comment: <100 mg/dl OPTIMAL 100 - 129 mg/dl NEAR OR ABOVE OPTIMAL 130 - 159 mg/dl BORDERLINE HIGH 160 - 189 mg/dl HIGH >190 mg/dl VERY HIGH Performed By: #### C MP, BNP, LIPID ####[facility] [address]nbcivwf[address] [place] [address]Dr. Garima Pulliam Triglyceride [Mass/Vol] 61 mg/dL Normal <=150 [facility] Comment on above: Performed By: #### C MP, BNP, LIPID ####[facility] Ofvkdasszk[address] [place] [address]Dr. Garima Pulliam VLDL CALC 12.2 mg/dL Normal [facility] Comment on above: Performed By: #### C MP, BNP, LIPID ####[facility] Llkaklmhns[address] [place] [address]Dr. Garima Pulliam PROF 14(COMP METB)on 023 Albumin [Mass/Vol] 3.5 g/dL Normal 3.4-5.0 [facility] Comment on above: Performed By: #### C MP, BNP, LIPID ####[facility] Vhwgfbiuzx[address] [place] [address]Dr. Garima Pulliam Albumin/Globulin [Mass ratio] 1.2 {ratio} Normal [facility] Comment on above: Performed By: #### C MP, BNP, LIPID ####[facility] Rxwhglrpmq4736 [place] [address]Dr. Garima Pulliam ALP [Catalytic activity/Vol] 82 U/L Normal 46-116 [facility] Comment on above: Performed By: #### C MP, BNP, LIPID ####[facility] Lqnooriewe[address] [place] [address]Dr. Garima Pulliam ALT [Catalytic activity/Vol] 33 U/L Normal 16-63 [facility] Comment on above: Performed By: #### C MP, BNP, LIPID ####[facility] Pxluwxkxcv90[address] [place] [address]Dr. Garima Pulliam Anion gap [Moles/Vol] 9.9 mmol/L Normal [facility] Comment on above: Performed By: #### C MP, BNP, LIPID ####[facility] Nqrpvfamgh60[address] [place] [address]Dr. Garima Pulliam AST [Catalytic activity/Vol] 24 U/L Normal 15-37 [facility] Comment on above: Performed By: #### C MP, BNP, LIPID ####[facility] Ttrpvntwqr49[address] [place] [address]Dr. Garima Pulliam Bilirubin [Mass/Vol] 0.6 mg/dL Normal 0.2-1.0 [facility] Comment on above: Performed By: #### C MP, BNP, LIPID ####[facility] Zysaqcubrp[address] [place] [address]Dr. Garima Pullima Calcium [Mass/Vol] 9.2 mg/dL Normal 8.5-10.1 [facility] Comment on above: Performed By: #### C MP, BNP, LIPID ####[facility] Foiyecyhla[address] [place] [address]Dr. Garima Pulliam Chloride [Moles/Vol] 106 mmol/L Normal 98-107 [facility] Comment on above: Performed By: #### C MP, BNP, LIPID ####[facility] Akzhdgmcot25[address] [place] [address]Dr. Garima Pulliam CO2 [Moles/Vol] 32.3 mmol/L Critically high 21.0-32.0 [facility] Comment on above: Performed By: #### C MP, BNP, LIPID ####[facility] Yttdxwkxmr[address] [place] [address]Dr. Garima Pulliam Creatinine [Mass/Vol] 0.70 mg/dL Normal 0.70-1.30 [facility] Comment on above: Performed By: #### C MP, BNP, LIPID ####[facility] Lspqccyjfp65[address] [place] [id number]. Garima Pulliam EGFR-AF ECUADOREAN >60 Normal >=60 [facility] Comment on above: Performed By: #### C MP, BNP, LIPID ####[facility] Gguyvhuivc89[address] [place] [id number]. Garima Pulliam EGFR-NON AF ECUADOREAN >60 Normal >=60 [facility] Comment on above: Performed By: #### C MP, BNP, LIPID ####[facility] Rxqvoruvzt72[address] [place] [address]Dr. Garima Pulliam Globulin (S) [Mass/Vol] 2.9 g/dL Normal [facility] Comment on above: Performed By: #### C MP, BNP, LIPID ####[facility] Zdxjijyudz2765 [place] [address]Dr. Garima Pulliam Glucose [Mass/Vol] 111 mg/dL Critically high 74-106 [facility] Comment on above: Performed By: #### C MP, BNP, LIPID ####[facility] Lxvlvzizyg11[address] [place] [address]Dr. Garima Pulliam Potassium [Moles/Vol] 4.2 mmol/L Normal 3.5-5.1 [facility] Comment on above: Performed By: #### C MP, BNP, LIPID ####[facility] Wozzavdiou32[address] [place] [address]Dr. Garima Pulliam Protein [Mass/Vol] 6.4 g/dL Normal 6.4-8.2 [facility] Comment on above: Performed By: #### C MP, BNP, LIPID ####[facility] Vhcjcbfnvi11[address] [place] [address]Dr. Garima Pulliam Sodium [Moles/Vol] 144 mmol/L Normal 136-145 [facility] Comment on above: Performed By: #### C MP, BNP, LIPID ####[facility] Pticdxpwxu9141 [place] [address]Dr. Garima Pulliam Urea nitrogen [Mass/Vol] 7.0 mg/dL Normal 7.0-18.0 [facility] Comment on above: Performed By: #### C MP, BNP, LIPID ####[facility] Ieiytqwyri[address] [place], [place] [address]Dr. Garima Pulliam Urea nitrogen/Creatinine [Mass ratio] 10.0 mg/mg Normal [facility] Comment on above: Performed By: #### C MP, BNP, LIPID ####[facility] Pwjslnpcfb[address] [place], [place] [address]Dr. Garima Pulliam BNPon 03-22-2023 Natriuretic peptide B (Bld) [Mass/Vol] 103.0 pg/mL Normal <=900.0 [facility] Comment on above: Performed By: #### B STATION INSTALLER AND REPAIRER, BMP ####[facility] Yitqcjupqk[address] [place], [place] [address]Dr. Garima Pulliam CBC AUTO DIFFon 03-22-2023 BASO # 0.0 103/ul Normal 0.0-0.1 [facility] Comment on above: Performed By: #### C BC ####[facility] Lrmivollqr[address] [place], [place] [address]Dr. Garima Heraclio Basophils/100 WBC (Bld) 0.3 % Normal 0.2-2.0 [facility] Comment on above: Performed By: #### C BC ####[facility] Wpgmskasgd[address] [place], [place] [address]Dr. Garima Pulliam EO # 0.2 103/ul Normal 0.0-0.7 [facility] Comment on above: Performed By: #### C BC ####[facility] Wtuhzhdvdx[address] [place], [place] [address]Dr. Garima Pulliam Eosinophils/100 WBC (Bld) 2.2 % Normal 0.9-7.0 [facility] Comment on above: Performed By: #### C BC ####[facility] Ywuimywnxl[address] [place], [place] [address]Dr. Garima Pulliam Erythrocyte distribution width (RBC) [Ratio] 13.2 % Normal 11.0-15.0 [facility] Comment on above: Performed By: #### C BC ####[facility] [address]jalzipejh6[address] [place] [id number]. Garima Pulliam Hematocrit (Bld) [Volume fraction] 43.4 % Normal 42.0-54.0 [facility] Comment on above: Performed By: #### C BC ####[facility] [address]zpkhsdw2[address] [place] [address]Dr. Garima Heraclio Hemoglobin (Bld) [Mass/Vol] 14.3 g/dL Normal 14.0-18.0 [facility] Comment on above: Performed By: #### C BC ####[facility] Qsonrjmqbe9808 [place] [address]Dr. Garima Pulliam IG # 0.02 10e3/ul Normal 0.00-0.03 [facility] Comment on above: Performed By: #### C BC ####[facility] Zrmopgqdjg4973 [place] [address]Dr. Garima Pulliam IG % 0.3 % Normal 0.0-0.5 [facility] Comment on above: Performed By: #### C BC ####[facility] Sumnowncgp4[address] [place] [address]Dr. Chapisrenu Pullaim LYMPH # 2.0 103/ul Normal 1.2-3.8 [facility] Comment on above: Performed By: #### C BC ####[facility] Mqhkcjfyda5380 [place] [address]Dr. Chapisrenu Pulliam Lymphocytes/100 WBC (Bld) 24.8 % Normal 20.5-60.0 [facility] Comment on above: Performed By: #### C BC ####[facility] Wxbbxwmjmk5[address] [place] [address]Dr. Chapisrenu Pulliam MANUAL DIFF REQ NO Normal [facility] Comment on above: Performed By: #### C BC ####[facility] Qppfgcvtba7168 [place] [address]Dr. Graima Heraclio MCH (RBC) [Entitic mass] 30.0 pg Normal 25.9-34.0 [facility] Comment on above: Performed By: #### C BC ####[facility] Nnmdfkxxjq[address] [place], [place] [address]Dr. Garima Pulliam MCHC (RBC) [Mass/Vol] 32.9 g/dL Normal 29.9-35.2 [facility] Comment on above: Performed By: #### C BC ####[facility] Cojdlewrui6418 [place] [id number]. Garima Pulliam MCV (RBC) [Entitic vol] 91.0 fL Normal 80.0-94.0 [facility] Comment on above: Performed By: #### C BC ####[facility] Jmnitcwcib0756 [place] [id number]. Garima Heraclio MONO # 0.8 103/ul Normal 0.3-0.8 [facility] Comment on above: Performed By: #### C BC ####[facility] Djosffyeqm78[address] [place] [address]Dr. Chapisrenu Pulliam Monocytes/100 WBC (Bld) 9.7 % Normal 1.7-12.0 [facility] Comment on above: Performed By: #### C BC ####[facility] Wnvkrbcukp6669 [place] [address]Dr. Garima Pulliam NEUT # 4.9 103/ul Normal 1.4-6.5 [facility] Comment on above: Performed By: #### C BC ####[facility] Ukhxuhwcbl3855 [place] [id number]. Garima Heraclio Neutrophils/100 WBC (Bld) 62.7 % Normal 43.0-75.0 [facility] Comment on above: Performed By: #### C BC ####[facility] Monyphmlgx0152 [place] [id number]. Garima Heraclio Platelet mean volume (Bld) [Entitic vol] 8.8 fL Critically low 9.5-13.5 [facility] Comment on above: Performed By: #### C BC ####[facility] Uaswgozhoo78[address] [place] [id number]. Garima Heraclio PLT 198 103/ul Normal 150-450 [facility] Comment on above: Performed By: #### C BC ####[facility] Jcwpthmwhi8254 [place] [address]Dr. Garima Heraclio RBC 4.77 106/ul Normal 4.70-6.10 [facility] Comment on above: Performed By: #### C BC ####[facility] Lrbiquoxix6964 [place] [id number]. Garima Heraclio WBC 7.9 103/ul Normal 4.0-11.0 [facility] Comment on above: Performed By: #### C BC ####[facility] Shvtbxmddf4627 [place] [id number]. Garima Heraclio D-DIMERon 03-22-2023 D-DIMER 0.85 mg/L FEU Critically high <=0.59 [facility] Comment on above: Performed By: #### D DIM ####[facility] Erfsaacmgh13[address] [place] [address]Dr. Garima Pulliam D-DIMER COMMENTS SEE BELOW Normal [facility] Comment on above: Result Comment: [...] generalized hospitalization. Performed By: #### D DIM ####[facility] Ghduoicylv[address] [place], [place] [address]Dr. Garima Pulliam PROF CHEM 8 (BAS METB)on Anion gap [Moles/Vol] 6.9 mmol/L Normal [facility] Comment on above: Performed By: #### B STATION INSTALLER AND REPAIRER, BMP ####[facility] Dhpijfqpdc8526 [place] [address]Dr. Garima Pulliam Calcium [Mass/Vol] 8.9 mg/dL Normal 8.5-10.1 [facility] Comment on above: Performed By: #### B STATION INSTALLER AND REPAIRER, BMP ####[facility] Tzhfbnagfp2387 [place] [address]Dr. Garima Pulliam Chloride [Moles/Vol] 101 mmol/L Normal 98-107 [facility] Comment on above: Performed By: #### B STATION INSTALLER AND REPAIRER, BMP ####[facility] Kgfmynjvfw209[address] [place], [place] [address]Dr. Chapisrenu Heraclio CO2 [Moles/Vol] 30.7 mmol/L Normal 21.0-32.0 [facility] Comment on above: Performed By: #### B STATION INSTALLER AND REPAIRER, BMP ####[facility] Bbkpxnvqnb258[address] [place], [place] [address]Dr. Garima Pulliam Creatinine [Mass/Vol] 0.82 mg/dL Normal 0.70-1.30 [facility] Comment on above: Performed By: #### B STATION INSTALLER AND REPAIRER, BMP ####[facility] Kdvwjvltsi[address] [place], [place] [address]Dr. Garima Pulliam EGFR-AF ECUADOREAN >60 Normal >=60 [facility] Comment on above: Performed By: #### B STATION INSTALLER AND REPAIRER, BMP ####[facility] Azbqpgsrtz7[address] [place], [place] [address]Dr. Chapisrenu Heraclio EGFR-NON AF ECUADOREAN >60 Normal >=60 [facility] Comment on above: Performed By: #### B STATION INSTALLER AND REPAIRER, BMP ####[facility] Tkpljdcfbx118[address] [place], [place] [address]Dr. Garima Pulliam Glucose [Mass/Vol] 339 mg/dL Critically high 74-106 [facility] Comment on above: Performed By: #### B STATION INSTALLER AND REPAIRER, BMP ####[facility] Wrmgyiuhzk[address] [place], [place] [address]Dr. Garima Pulliam Potassium [Moles/Vol] 3.6 mmol/L Normal 3.5-5.1 [facility] Comment on above: Performed By: #### B STATION INSTALLER AND REPAIRER, BMP ####[facility] Atcasovlst7[address] [place], [place] [address]Dr. Garima Pulliam Sodium [Moles/Vol] 135 mmol/L Critically low 136-145 Th [facility] Comment on above: Performed By: #### B STATION INSTALLER AND REPAIRER, BMP ####[facility] Ggrwlkucva[address] [place], [place] [address]Dr. Garima Pulliam Urea nitrogen [Mass/Vol] 11.0 mg/dL Normal 7.0-18.0 [facility] Comment on above: Performed By: #### B STATION INSTALLER AND REPAIRER, BMP ####[facility] Zozssglkjy27[address] [place], [place] [address]Dr. Garima Pulliam Urea nitrogen/Creatinine [Mass ratio] 13.4 mg/mg Normal [facility] Comment on above: Performed By: #### B STATION INSTALLER AND REPAIRER, BMP ####[facility] Ejzkcnifpl[address] [place], [place] [address]Dr. Garima Pulliam US VERONICA DOP LEG BILon 023 US VERONICA DOP LEG BENOIT Normal [facility] BNPon 03-18-2023 Natriuretic peptide B (Bld) [Mass/Vol] 226.0 pg/mL Normal <=900.0 [facility] Comment on above: Performed By: #### B STATION INSTALLER AND REPAIRER, BMP ####[facility] Oqvxmrckcg3[address] [place], [place] [address]Dr. Garima Pulliam CBC AUTO DIFFon 03-18-2023 BASO # 0.0 103/ul Normal 0.0-0.1 [facility] Comment on above: Performed By: #### C BC ####[facility] Ziujkdhkeq[address] [place], [place] [address]Dr. Garima Heraclio Basophils/100 WBC (Bld) 0.2 % Normal 0.2-2.0 [facility] Comment on above: Performed By: #### C BC ####[facility] Iuwgvxtijj[address] [place], [place] [address]Dr. Garima Pulliam EO # 0.3 103/ul Normal 0.0-0.7 [facility] Comment on above: Performed By: #### C BC ####[facility] Hlaqvwgecn[address] [place], [place] [address]Dr. Garima Heraclio Eosinophils/100 WBC (Bld) 2.5 % Normal 0.9-7.0 [facility] Comment on above: Performed By: #### C BC ####[facility] Zdevutdlcq7[address] [place], [place] [address]Dr. Garima Heraclio Erythrocyte distribution width (RBC) [Ratio] 13.2 % Normal 11.0-15.0 [facility] Comment on above: Performed By: #### C BC ####[facility] Datrpzzygy9102 [place] [address]DrAdalberto Pulliam Hematocrit (Bld) [Volume fraction] 45.8 % Normal 42.0-54.0 [facility] Comment on above: Performed By: #### C BC ####[facility] Pyzftmvxhp9653 [place] [address]DrAdalberto Pulliam Hemoglobin (Bld) [Mass/Vol] 15.3 g/dL Normal 14.0-18.0 [facility] Comment on above: Performed By: #### C BC ####[facility] Vwokuxcoud[address] [place], [place] [address]DrAdalberto Pulliam IG # 0.02 10e3/ul Normal 0.00-0.03 [facility] Comment on above: Performed By: #### C BC ####[facility] Jyzwccerjp[address] [place], [place] [address]DrAdalberto Pulliam IG % 0.2 % Normal 0.0-0.5 [facility] Comment on above: Performed By: #### C BC ####[facility] Tpgyhxxuef[address] [place], [place] [address]DrAdalberto Pulliam LYMPH # 1.8 103/ul Normal 1.2-3.8 [facility] Comment on above: Performed By: #### C BC ####[facility] [address]pziqtpjsr[address] [place], [place] [address]DrAdalberto Pulliam Lymphocytes/100 WBC (Bld) 18.3 % Critically low 20.5-60.0 [facility] Comment on above: Performed By: #### C BC ####[facility] Xobvpifibb[address] [place], [place] [address]DrAdalberto Pulliam MANUAL DIFF REQ NO Normal [facility] Comment on above: Performed By: #### C BC ####[facility] Hgodzntuzf5590 [place] [address]DrAdalberto Pulliam MCH (RBC) [Entitic mass] 30.5 pg Normal 25.9-34.0 [facility] Comment on above: Performed By: #### C BC ####[facility] Hfjkemqbur4832 [place] [address]DrAdalberto Pulliam MCHC (RBC) [Mass/Vol] 33.4 g/dL Normal 29.9-35.2 [facility] Comment on above: Performed By: #### C BC ####[facility] Hspmxugqrg8707 [place] [address]DrAdalberto Pulliam MCV (RBC) [Entitic vol] 91.2 fL Normal 80.0-94.0 [facility] Comment on above: Performed By: #### C BC ####[facility] Jyczminucq9[address] [place], [place] [address]DrAdalberto Pulliam MONO # 0.8 103/ul Normal 0.3-0.8 [facility] Comment on above: Performed By: #### C BC ####[facility] Kzqtwduaqn[address] [place], [place] [address]DrAdalberto Pulliam Monocytes/100 WBC (Bld) 7.6 % Normal 1.7-12.0 [facility] Comment on above: Performed By: #### C BC ####[facility] Wbumqlwcea213[address] [place], [place] [address]DrAdalberto Pulliam NEUT # 7.0 103/ul Critically high 1.4-6.5 [facility] Comment on above: Performed By: #### C BC ####[facility] Mlslzfnjvi[address] [place], [place] [address]DrAdalberto Pulliam Neutrophils/100 WBC (Bld) 71.2 % Normal 43.0-75.0 [facility] Comment on above: Performed By: #### C BC ####[facility] Rigaqtarth[address] [place], [place] [address]DrAdalberto Pulliam Platelet mean volume (Bld) [Entitic vol] 8.9 fL Critically low 9.5-13.5 [facility] Comment on above: Performed By: #### C BC ####[facility] [address]zwlihqv[address] [place], [place] [address]DrAdalberto Pulliam PLT 217 103/ul Normal 150-450 [facility] Comment on above: Performed By: #### C BC ####[facility] Xsgjmicjba6498 [place] [address]Dr. Garima Heraclio RBC 5.02 106/ul Normal 4.70-6.10 [facility] Comment on above: Performed By: #### C BC ####[facility] Ghoyiejrwq[address] [place], [place] [address]Dr. Garima Pulliam WBC 9.8 103/ul Normal 4.0-11.0 [facility] Comment on above: Performed By: #### C BC ####[facility] Ojzcwqqabq[address] [place], [place] [address]Dr. Garima Heraclio CRPon 03-18-2023 CRP 0.1 mg/dL Normal <=1.0 [facility] Comment on above: Performed By: #### C RP ####[facility] Gvpceuhfrg[address] [place], [place] [address]Dr. Garima Heraclio PROF CHEM 8 (BAS METB)on Anion gap [Moles/Vol] 10.4 mmol/L Normal [facility] Comment on above: Performed By: #### B STATION INSTALLER AND REPAIRER, BMP ####[facility] Ztxlfkbqgm[address] [place], [place] [address]Dr. Garima Heraclio Calcium [Mass/Vol] 8.8 mg/dL Normal 8.5-10.1 [facility] Comment on above: Performed By: #### B STATION INSTALLER AND REPAIRER, BMP ####[facility] Uyowdawdkb[address] [place], [place] [address]Dr. Garima Heraclio Chloride [Moles/Vol] 97 mmol/L Critically low 98-107 [facility] Comment on above: Performed By: #### B STATION INSTALLER AND REPAIRER, BMP ####[facility] [address]ucibyqkml[address] [place], [place] [address]Dr. Garima Pulliam CO2 [Moles/Vol] 31.2 mmol/L Normal 21.0-32.0 [facility] Comment on above: Performed By: #### B STATION INSTALLER AND REPAIRER, BMP ####[facility] Egbhwbwppi[address] [place], [place] [address]Dr. Garima Pulliam Creatinine [Mass/Vol] 0.91 mg/dL Normal 0.70-1.30 [facility] Comment on above: Performed By: #### B STATION INSTALLER AND REPAIRER, BMP ####[facility] Tqqrpfgdrq[address] [place] [address]Dr. Garima Pulliam EGFR-AF ECUADOREAN >60 Normal >=60 [facility] Comment on above: Performed By: #### B STATION INSTALLER AND REPAIRER, BMP ####[facility] Yqivbupwlh[address]4 [place] [id number]. Garima Pulliam EGFR-NON AF ECUADOREAN >60 Normal >=60 [facility] Comment on above: Performed By: #### B STATION INSTALLER AND REPAIRER, BMP ####[facility] Rjrbspkaps[address] [place] [address]Dr. Garima Pulliam Glucose [Mass/Vol] 315 mg/dL Critically high 74-106 T [facility] Comment on above: Performed By: #### B STATION INSTALLER AND REPAIRER, BMP ####[facility] Otlxvkhmds6754 [place] [address]Dr. Garima Pulliam Potassium [Moles/Vol] 3.6 mmol/L Normal 3.5-5.1 [facility] Comment on above: Performed By: #### B STATION INSTALLER AND REPAIRER, BMP ####[facility] Smlmkuxmvi8185 [place] [address]Dr. Garima Pulliam Sodium [Moles/Vol] 135 mmol/L Critically low 136-145 Th [facility] Comment on above: Performed By: #### B STATION INSTALLER AND REPAIRER, BMP ####[facility] Yftcoqdvzd[address] [place] [address]Dr. Garima Pulliam Urea nitrogen [Mass/Vol] 7.0 mg/dL Normal 7.0-18.0 [facility] Comment on above: Performed By: #### B STATION INSTALLER AND REPAIRER, BMP ####[facility] [address]jtitrhzwh[address] [place] [address]Dr. Garima Pulliam Urea nitrogen/Creatinine [Mass ratio] 7.7 mg/mg Normal [facility] Comment on above: Performed By: #### B STATION INSTALLER AND REPAIRER, BMP ####[facility] [address] [place] [address]Dr. Garima Pulliam SED RATE WESTERGRENon 2022 SED RATE 8 mm/hr Normal <=20 [facility] Comment on above: Performed By: #### S EDR ####[facility] Qranlhcihm[address] [place], [place] [address]Dr. Garima Pulliam BNPon 03-16-2023 Natriuretic peptide B (Bld) [Mass/Vol] 241.0 pg/mL Normal <=900.0 [facility] Comment on above: Performed By: #### B STATION INSTALLER AND REPAIRER, BMP, HSTROPN ####[facility] Czhdafuukc[address] [place], [place] [address]Dr. Garima Heraclio CBC AUTO DIFFon 03-16-2023 BASO # 0.0 103/ul Normal 0.0-0.1 [facility] Comment on above: Performed By: #### C BC ####[facility] Weqqqsoclt8[address] [place], [place] [address]Dr. Chapisrenu Pulliam Basophils/100 WBC (Bld) 0.2 % Normal 0.2-2.0 [facility] Comment on above: Performed By: #### C BC ####[facility] Bblmqczcoa[address] [place], [place] [address]Dr. Garima Pulliam EO # 0.2 103/ul Normal 0.0-0.7 [facility] Comment on above: Performed By: #### C BC ####[facility] Oplleftybl[address] [place], [place] [address]Dr. Chapisrenu Pulliam Eosinophils/100 WBC (Bld) 2.7 % Normal 0.9-7.0 [facility] Comment on above: Performed By: #### C BC ####[facility] Qlpkdpjdha[address] [place], [place] [address]Dr. Garima Pulliam Erythrocyte distribution width (RBC) [Ratio] 13.1 % Normal 11.0-15.0 [facility] Comment on above: Performed By: #### C BC ####[facility] Oojabgwyga[address] [place], [place] [address]Dr. Garima Pulliam Hematocrit (Bld) [Volume fraction] 41.8 % Critically low 42.0-54.0 [facility] Comment on above: Performed By: #### C BC ####[facility] [address]xiwwmsr[address] [place] [address]Dr. Garima Pulliam Hemoglobin (Bld) [Mass/Vol] 14.0 g/dL Normal 14.0-18.0 [facility] Comment on above: Performed By: #### C BC ####[facility] [address]xqptcivuc[address] [place] [address]Dr. Garima Pulliam IG # 0.03 10e3/ul Normal 0.00-0.03 [facility] Comment on above: Performed By: #### C BC ####[facility] Yekkxwdwfb[address] [place] [address]Dr. Garima Pulliam IG % 0.3 % Normal 0.0-0.5 [facility] Comment on above: Performed By: #### C BC ####[facility] Ycqjphpqwx[address] [place], [place] [address]Dr. Chapisrenu Pulliam LYMPH # 2.1 103/ul Normal 1.2-3.8 [facility] Comment on above: Performed By: #### C BC ####[facility] Ksyiuufdea[address] [place], [place] [address]Dr. Chapisrenu Pulliam Lymphocytes/100 WBC (Bld) 24.2 % Normal 20.5-60.0 [facility] Comment on above: Performed By: #### C BC ####[facility] [address]iuzpqr[address] [place] [address]Dr. Garima Pulliam MANUAL DIFF REQ NO Normal [facility] Comment on above: Performed By: #### C BC ####[facility] Ruxyzrihjv[address] [place] [address]Dr. Garima Pulliam MCH (RBC) [Entitic mass] 30.2 pg Normal 25.9-34.0 [facility] Comment on above: Performed By: #### C BC ####[facility] Aosohgycon[address] [place] [address]Dr. Garima Pulliam MCHC (RBC) [Mass/Vol] 33.5 g/dL Normal 29.9-35.2 [facility] Comment on above: Performed By: #### C BC ####[facility] Psmzbfjotx[address] [place] [address]Dr. Garima Pulliam MCV (RBC) [Entitic vol] 90.1 fL Normal 80.0-94.0 [facility] Comment on above: Performed By: #### C BC ####[facility] Mmjddxcbll3[address] [place] [address]Dr. Garima Pulliam MONO # 0.6 103/ul Normal 0.3-0.8 [facility] Comment on above: Performed By: #### C BC ####[facility] Vcbnfxcvht[address] [place] [address]Dr. Garima Heraclio Monocytes/100 WBC (Bld) 7.4 % Normal 1.7-12.0 [facility] Comment on above: Performed By: #### C BC ####[facility] Uavwtpprax[address] [place], [place] [address]Dr. Garima Pulliam NEUT # 5.6 103/ul Normal 1.4-6.5 [facility] Comment on above: Performed By: #### C BC ####[facility] Qdkevthscg[address] [place], [place] [address]Dr. Garima Heraclio Neutrophils/100 WBC (Bld) 65.2 % Normal 43.0-75.0 [facility] Comment on above: Performed By: #### C BC ####[facility] Onwadsffrq[address] [place] [address]Dr. Garima Heraclio Platelet mean volume (Bld) [Entitic vol] 8.7 fL Critically low 9.5-13.5 [facility] Comment on above: Performed By: #### C BC ####[facility] [address]ysl[address] [place], [place] [address]Dr. Garima Heraclio PLT 195 103/ul Normal 150-450 [facility] Comment on above: Performed By: #### C BC ####[facility] Jocwsnrkop[address] [place] [address]Dr. Garima Pulliam RBC 4.64 106/ul Critically low 4.70-6.10 [facility] Comment on above: Performed By: #### C BC ####[facility] Qsvamwjpjd38[address] [place] [address]Dr. Garima Pulliam WBC 8.6 103/ul Normal 4.0-11.0 [facility] Comment on above: Performed By: #### C BC ####[facility] Fzxbwtkkwg[address] [place] [address]Dr. Garima Pulliam PROF CHEM 8 (BAS METB)on Anion gap [Moles/Vol] 6.7 mmol/L Normal [facility] Comment on above: Performed By: #### B STATION INSTALLER AND REPAIRER, BMP, HSTROPN ####[facility] Yrcsixdnvu[address] [place] [address]Dr. Garima Pulliam Calcium [Mass/Vol] 8.8 mg/dL Normal 8.5-10.1 [facility] Comment on above: Performed By: #### B STATION INSTALLER AND REPAIRER, BMP, HSTROPN ####[facility] Ymhbydpbtp[address] [place], [place] [address]Dr. Garima Pulliam Chloride [Moles/Vol] 106 mmol/L Normal 98-107 [facility] Comment on above: Performed By: #### B STATION INSTALLER AND REPAIRER, BMP, HSTROPN ####[facility] Dcuwieivvi[address] [place], [place] [address]Dr. Garima Pulliam CO2 [Moles/Vol] 31.4 mmol/L Normal 21.0-32.0 The [facility] Comment on above: Performed By: #### B STATION INSTALLER AND REPAIRER, BMP, HSTROPN ####[facility] Tyjhdxugre[address] [place], [place] [address]Dr. Garima Pulliam Creatinine [Mass/Vol] 0.75 mg/dL Normal 0.70-1.30 [facility] Comment on above: Performed By: #### B STATION INSTALLER AND REPAIRER, BMP, HSTROPN ####[facility] Jtgzftivjp20[address] [place] [address]Dr. Garima Pulliam EGFR-AF ECUADOREAN >60 Normal >=60 The [facility] Comment on above: Performed By: #### B STATION INSTALLER AND REPAIRER, BMP, HSTROPN ####[facility] [address]axirxaxdb[address] [place] [address]Dr. Garima Pulliam EGFR-NON AF ECUADOREAN >60 Normal >=60 [facility] Comment on above: Performed By: #### B STATION INSTALLER AND REPAIRER, BMP, HSTROPN ####[facility] Itoudfqqym[address] [place] [address]Dr. Garima Pulliam Glucose [Mass/Vol] 161 mg/dL Critically high 74-106 [facility] Comment on above: Performed By: #### B STATION INSTALLER AND REPAIRER, BMP, HSTROPN ####[facility] Tw[address]unvzq[address] [place] [address]Dr. Garima Pulliam Potassium [Moles/Vol] 4.1 mmol/L Normal 3.5-5.1 [facility] Comment on above: Performed By: #### B STATION INSTALLER AND REPAIRER, BMP, HSTROPN ####[facility] Nrrbunnvdl[address] [place] [address]Dr. Garima Pulliam Sodium [Moles/Vol] 140 mmol/L Normal 136-145 [facility] Comment on above: Performed By: #### B STATION INSTALLER AND REPAIRER, BMP, HSTROPN ####[facility] Igdzlvlwzx[address] [place] [address]Dr. Garima Pulliam Urea nitrogen [Mass/Vol] 7.0 mg/dL Normal 7.0-18.0 [facility] Comment on above: Performed By: #### B STATION INSTALLER AND REPAIRER, BMP, HSTROPN ####[facility] Ttpilikjpu[address] [place] [address]Dr. Garima Pulliam Urea nitrogen/Creatinine [Mass ratio] 9.3 mg/mg Normal [facility] Comment on above: Performed By: #### B STATION INSTALLER AND REPAIRER, BMP, HSTROPN ####[facility] [address]rmeytnm[address] [place] [address]Dr. Garima Pulliam TROPONIN, HIGH SENSITIVITYon 03-16-2023 HSTROP 9.7 pg/mL Normal 4.0-76.1 [facility] Comment on above: Result Comment: CUT- OFF POINTS HAVE BEEN ESTABLISHED BASED ON THE FOURTH UNIVERSAL DEFINITIONS OF MYOCARDIALINFARCTION. THE UPPER REFERENCE LIMIT (URL) OF TROPONIN, DEFINED THE 99TH PERCENTILE OFcTnI DISTRIBUTION IN A REFERENCE POPULATION, HAS BEEN CONFIRMED THE DECISION THRESHOLDFOR CA DIAGNOSIS. Performed By: #### B STATION INSTALLER AND REPAIRER, BMP, HSTROPN ####[facility] [address]qxtagb[address] [place] [address]Dr. Garima Pulliam XR CHEST 1 Von 03-16-2023 XR CHEST 1 V Normal [facility] BNPon 03-06-2023 Natriuretic peptide B (Bld) [Mass/Vol] 111.0 pg/mL Normal <=900.0 [facility] Comment on above: Performed By: #### C MP, BNP, CK ####[facility] W[address]hbbxdqv[address] [place] [address]Dr. Chapisrenu Pulliam CBC AUTO DIFFon 03-06-2023 BASO # 0.0 103/ul Normal 0.0-0.1 [facility] Comment on above: Performed By: #### C BC ####[facility] Rxiqwjbruo[address] [place], [place] [address]Dr. Garima Pulliam Basophils/100 WBC (Bld) 0.2 % Normal 0.2-2.0 [facility] Comment on above: Performed By: #### C BC ####[facility] Lkxoooicei[address] [place], [place] [address]Dr. Garima Pulliam EO # 0.3 103/ul Normal 0.0-0.7 [facility] Comment on above: Performed By: #### C BC ####[facility] Tsaverxgji[address] [place], [place] [address]Dr. Garima Pulliam Eosinophils/100 WBC (Bld) 3.5 % Normal 0.9-7.0 [facility] Comment on above: Performed By: #### C BC ####[facility] Tklyvbuomj[address] [place], [place] [address]Dr. Garima Pulliam Erythrocyte distribution width (RBC) [Ratio] 13.3 % Normal 11.0-15.0 [facility] Comment on above: Performed By: #### C BC ####[facility] Qpnjwanejq[address] [place], [place] [address]Dr. Garima Pulliam Hematocrit (Bld) [Volume fraction] 43.7 % Normal 42.0-54.0 [facility] Comment on above: Performed By: #### C BC ####[facility] Afnqvcbjnu[address] [place] [address]Dr. Garima Pulliam Hemoglobin (Bld) [Mass/Vol] 14.7 g/dL Normal 14.0-18.0 [facility] Comment on above: Performed By: #### C BC ####[facility] Qtrmiynncx36[address] [place] [address]Dr. Chapisrenu Heraclio IG # 0.03 10e3/ul Normal 0.00-0.03 [facility] Comment on above: Performed By: #### C BC ####[facility] Yhmfzxdjdb[address] [place], [place] [address]Dr. Garima Pulliam IG % 0.4 % Normal 0.0-0.5 [facility] Comment on above: Performed By: #### C BC ####[facility] K[address]ebf[address] [place], [place] [address]Dr. Garima Pulliam LYMPH # 2.0 103/ul Normal 1.2-3.8 [facility] Comment on above: Performed By: #### C BC ####[facility] Jfphacrwom[address] [place], [place] [address]DrAdalberto Pulliam Lymphocytes/100 WBC (Bld) 23.7 % Normal 20.5-60.0 [facility] Comment on above: Performed By: #### C BC ####[facility] Xpktbyywak[address] [place] [address]Dr. Garima Pulliam MANUAL DIFF REQ NO Normal [facility] Comment on above: Performed By: #### C BC ####[facility] Mijhcnzkxq92[address] [place] [id number] Pulliam MCH (RBC) [Entitic mass] 30.1 pg Normal 25.9-34.0 [facility] Comment on above: Performed By: #### C BC ####[facility] Whrghbziib3549 [place] [address]Dr. Garima Pulliam MCHC (RBC) [Mass/Vol] 33.6 g/dL Normal 29.9-35.2 [facility] Comment on above: Performed By: #### C BC ####[facility] Ikjohwdikr[address] [place] [address]Dr. Garima Heraclio MCV (RBC) [Entitic vol] 89.4 fL Normal 80.0-94.0 [facility] Comment on above: Performed By: #### C BC ####[facility] Xxudijwdpm40[address] [place] [address]Dr. Garima Pulliam MONO # 0.8 103/ul Normal 0.3-0.8 [facility] Comment on above: Performed By: #### C BC ####[facility] Xonokrenrr[address] [place] [address]Dr. Garima Pulliam Monocytes/100 WBC (Bld) 9.0 % Normal 1.7-12.0 [facility] Comment on above: Performed By: #### C BC ####[facility] N[address]qqsjvq[address] [place], [place] [address]Dr. Garima Pulliam NEUT # 5.4 103/ul Normal 1.4-6.5 [facility] Comment on above: Performed By: #### C BC ####[facility] [address]qgvuswtox[address] [place], [place] [address]Dr. Garima Pulliam Neutrophils/100 WBC (Bld) 63.2 % Normal 43.0-75.0 [facility] Comment on above: Performed By: #### C BC ####[facility] Dclljubbbp[address] [place], [place] [address]Dr. Garima Pulliam Platelet mean volume (Bld) [Entitic vol] 9.0 fL Critically low 9.5-13.5 [facility] Comment on above: Performed By: #### C BC ####[facility] Yzwjpielsc[address] [place], [place] [address]Dr. Garima Pulliam PLT 218 103/ul Normal 150-450 [facility] Comment on above: Performed By: #### C BC ####[facility] Dobrsehqtn[address] [place] [address]Dr. Garima Pulliam RBC 4.89 106/ul Normal 4.70-6.10 [facility] Comment on above: Performed By: #### C BC ####[facility] Ncemwtpcea[address] [place] [address]Dr. Garima Pulliam WBC 8.5 103/ul Normal 4.0-11.0 [facility] Comment on above: Performed By: #### C BC ####[facility] Qcgqrftxrx28[address] [place] [address]Dr. Garima Pulliam CPKon 03-06-2023 CK [Catalytic activity/Vol] 191 U/L Normal 39-308 [facility] Comment on above: Performed By: #### C MP, BNP, CK ####[facility] Oogkokrawl[address] [place] [address]Dr. Garima Pulliam PROF 14(COMP METB)on 023 Albumin [Mass/Vol] 3.6 g/dL Normal 3.4-5.0 [facility] Comment on above: Performed By: #### C MP, BNP, CK ####[facility] Pdzlauswuj[address] [place] [address]Dr. Garima Pulliam Albumin/Globulin [Mass ratio] 1.2 {ratio} Normal [facility] Comment on above: Performed By: #### C MP, BNP, CK ####[facility] Ogqjagmayh[address] [place] [address]Dr. Garima Pulliam ALP [Catalytic activity/Vol] 91 U/L Normal 46-116 [facility] Comment on above: Performed By: #### C MP, BNP, CK ####[facility] Swmelsbzar[address] [place] [address]Dr. Garima Pulliam ALT [Catalytic activity/Vol] 33 U/L Normal 16-63 [facility] Comment on above: Performed By: #### C MP, BNP, CK ####[facility] Kdpyfbujcr52[address] [place] [address]Dr. Garima Pulliam Anion gap [Moles/Vol] 10.3 mmol/L Normal [facility] Comment on above: Performed By: #### C MP, BNP, CK ####[facility] Fznaxoeuoe34[address] [place] [address]Dr. Garima Pulliam AST [Catalytic activity/Vol] 17 U/L Normal 15-37 [facility] Comment on above: Performed By: #### C MP, BNP, CK ####[facility] Mldvjnserp[address] [place] [address]Dr. Garima Pulliam Bilirubin [Mass/Vol] 0.4 mg/dL Normal 0.2-1.0 [facility] Comment on above: Performed By: #### C MP, BNP, CK ####[facility] Vjfsfkrotq[address] [place] [address]Dr. Garima Pulliam Calcium [Mass/Vol] 9.1 mg/dL Normal 8.5-10.1 [facility] Comment on above: Performed By: #### C MP, BNP, CK ####[facility] Twgczkvhsk4[address] [place] [address]Dr. Garima Pulliam Chloride [Moles/Vol] 102 mmol/L Normal 98-107 [facility] Comment on above: Performed By: #### C MP, BNP, CK ####[facility] Ktfxidskwa27[address] [place] [address]Dr. Garima Pulliam CO2 [Moles/Vol] 29.7 mmol/L Normal 21.0-32.0 [facility] Comment on above: Performed By: #### C MP, BNP, CK ####[facility] Wucllfunra[address] [place] [address]Dr. Garima Pulliam Creatinine [Mass/Vol] 0.79 mg/dL Normal 0.70-1.30 [facility] Comment on above: Performed By: #### C MP, BNP, CK ####[facility] Wwlfoodosn[address] [place] [address]Dr. Garima Pulliam EGFR-AF ECUADOREAN >60 Normal >=60 [facility] Comment on above: Performed By: #### C MP, BNP, CK ####[facility] Baeopjavjz[address] [place] [address]Dr. Garima Pulliam EGFR-NON AF ECUADOREAN >60 Normal >=60 [facility] Comment on above: Performed By: #### C MP, BNP, CK ####[facility] Xymkoewdze[address] [place] [address]Dr. Garima Pulliam Globulin (S) [Mass/Vol] 3.0 g/dL Normal [facility] Comment on above: Performed By: #### C MP, BNP, CK ####[facility] Rqzqtthfma28[address] [place] [address]Dr. Garima Pulliam Glucose [Mass/Vol] 202 mg/dL Critically high 74-106 [facility] Comment on above: Performed By: #### C MP, BNP, CK ####[facility] Bnjioccopb9[address] [place] [address]Dr. Garima Pulliam Potassium [Moles/Vol] 4.0 mmol/L Normal 3.5-5.1 [facility] Comment on above: Performed By: #### C MP, BNP, CK ####[facility] Xnwridltpd2496 [place] [address]Dr. Garima Pulliam Protein [Mass/Vol] 6.6 g/dL Normal 6.4-8.2 [facility] Comment on above: Performed By: #### C MP, BNP, CK ####[facility] [address]zemq[address] [place], [place] [address]Dr. Garima Pulliam Sodium [Moles/Vol] 138 mmol/L Normal 136-145 [facility] Comment on above: Performed By: #### C MP, BNP, CK ####[facility] Br[address]hbdvv[address] [place], [place] [address]Dr. Garima Pulliam Urea nitrogen [Mass/Vol] 10.0 mg/dL Normal 7.0-18.0 [facility] Comment on above: Performed By: #### C MP, BNP, CK ####[facility] Ozcnnuaqlg17[address] [place] [address]Dr. Garima Pulliam Urea nitrogen/Creatinine [Mass ratio] 12.7 mg/mg Normal [facility] Comment on above: Performed By: #### C MP, BNP, CK ####[facility] Tjdgyqyduc15[address] [place] [address]Dr. Garima Pulliam US VERONICA DOP LEG BILon 023 US VERONICA DOP LEG BENOIT Normal [facility] CBC AUTO DIFFon 01-13-2023 BASO # 0.0 103/ul Normal 0.0-0.1 [facility] Comment on above: Performed By: #### C BC ####[facility] Htvmzhfnxp5668 [place] [id number]. Chapisrenu Pulliam Basophils/100 WBC (Bld) 0.0 % Critically low 0.2-2.0 [facility] Comment on above: Performed By: #### C BC ####[facility] Lkxwcoxdkk75[address] [place] [address]Dr. Garima Pulliam EO # 0.0 103/ul Normal 0.0-0.7 [facility] Comment on above: Performed By: #### C BC ####[facility] Abzadqtoar[address] [place], [place] [address]Dr. Garima Pulliam Eosinophils/100 WBC (Bld) 0.0 % Critically low 0.9-7.0 [facility] Comment on above: Performed By: #### C BC ####[facility] Cqfjomxvqo7305 [place] [address]Dr. Garima Pulliam Erythrocyte distribution width (RBC) [Ratio] 13.2 % Normal 11.0-15.0 [facility] Comment on above: Performed By: #### C BC ####[facility] Kmleifzota[address] [place], [place] [address]Dr. Garima Pulliam Hematocrit (Bld) [Volume fraction] 46.7 % Normal 42.0-54.0 [facility] Comment on above: Performed By: #### C BC ####[facility] [address]trhdhxae[address] [place], [place] [address]Dr. Garima Pulliam Hemoglobin (Bld) [Mass/Vol] 15.6 g/dL Normal 14.0-18.0 [facility] Comment on above: Performed By: #### C BC ####[facility] Auntxrquad[address] [place], [place] [address]Dr. Garima Pulliam IG # 0.01 10e3/ul Normal 0.00-0.03 [facility] Comment on above: Performed By: #### C BC ####[facility] Ktuckbnytp5078 [place] [address]Dr. Garima Pulliam IG % 0.2 % Normal 0.0-0.5 [facility] Comment on above: Performed By: #### C BC ####[facility] Ftdgjfabwd8704 [place] [address]Dr. Garima Pulliam LYMPH # 0.8 103/ul Critically low 1.2-3.8 [facility] Comment on above: Performed By: #### C BC ####[facility] Hnlhvlzcbt5493 [place] [address]Dr. Garima Pulliam Lymphocytes/100 WBC (Bld) 12.7 % Critically low 20.5-60.0 [facility] Comment on above: Performed By: #### C BC ####[facility] Evaxhtupbs8734 [place] [address]Dr. Garima Pulliam MANUAL DIFF REQ NO Normal [facility] Comment on above: Performed By: #### C BC ####[facility] Tceztbwmek2263 [place] [address]Dr. Garima Pulliam MCH (RBC) [Entitic mass] 30.2 pg Normal 25.9-34.0 [facility] Comment on above: Performed By: #### C BC ####[facility] Yxnhxbdyzg8228 [place] [address]Dr. Garima Pulliam MCHC (RBC) [Mass/Vol] 33.4 g/dL Normal 29.9-35.2 [facility] Comment on above: Performed By: #### C BC ####[facility] Dccaetwhkv5128 [place] [address]Dr. Garima Pulliam MCV (RBC) [Entitic vol] 90.3 fL Normal 80.0-94.0 [facility] Comment on above: Performed By: #### C BC ####[facility] Bmtuzfayot6826 [place] [address]Dr. Garima Heraclio MONO # 0.1 103/ul Critically low 0.3-0.8 [facility] Comment on above: Performed By: #### C BC ####[facility] Njefjfqohw0586 [place] [address]Dr. Garima Pulliam Monocytes/100 WBC (Bld) 0.9 % Critically low 1.7-12.0 [facility] Comment on above: Performed By: #### C BC ####[facility] Szqfswihgr3995 [place] [address]Dr. Garima Pulliam NEUT # 5.6 103/ul Normal 1.4-6.5 [facility] Comment on above: Performed By: #### C BC ####[facility] Gfdcogynnu0377 [place] [address]Dr. Garima Pulliam Neutrophils/100 WBC (Bld) 86.2 % Critically high 43.0-75.0 [facility] Comment on above: Performed By: #### C BC ####[facility] Lbusicdzpt8934 [place] [address]Dr. Garima Pulliam Platelet mean volume (Bld) [Entitic vol] 9.1 fL Critically low 9.5-13.5 [facility] Comment on above: Performed By: #### C BC ####[facility] Otjmhjuopi[address] [place], [place] [address]Dr. Garima Pulliam PLT 169 103/ul Normal 150-450 [facility] Comment on above: Performed By: #### C BC ####[facility] Rudnjnqqpo[address] [place], [place] [address]Dr. Garima Pulliam RBC 5.17 106/ul Normal 4.70-6.10 [facility] Comment on above: Performed By: #### C BC ####[facility] [address] [place], [place] [address]Dr. Garima Pulliam WBC 6.5 103/ul Normal 4.0-11.0 [facility] Comment on above: Performed By: #### C BC ####[facility] Wdsohpvcsh[address] [place], [place] [address]Dr. Garima Pulliam D-DIMERon 01-13-2023 D-DIMER 0.41 mg/L FEU Normal <=0.59 [facility] Comment on above: Performed By: #### D DIM ####[facility] [address] [place] [address]Dr. Garima Pulliam D-DIMER COMMENTS SEE BELOW Normal [facility] Comment on above: Result Comment: [...] generalized hospitalization. Performed By: #### D DIM ####[facility] Jmifgojxki[address] [place], [place] [address]Dr. Garima Pulliam PROF 14(COMP METB)on 023 Albumin [Mass/Vol] 3.4 g/dL Normal 3.4-5.0 [facility] Comment on above: Performed By: #### C MP ####[facility] Ppzxqmuybn[address] [place], [place] [address]Dr. Garima Pulliam Albumin/Globulin [Mass ratio] 1.3 {ratio} Normal [facility] Comment on above: Performed By: #### C MP ####[facility] Ksdtsltlbd[address] [place], [place] [address]Dr. Garima Pulliam ALP [Catalytic activity/Vol] 83 U/L Normal 46-116 [facility] Comment on above: Performed By: #### C MP ####[facility] Ctklxazmus[address] [place], [place] [address]Dr. Garima Pulliam ALT [Catalytic activity/Vol] 25 U/L Normal 16-63 [facility] Comment on above: Performed By: #### C MP ####[facility] [address]dttvzfhxx[address] [place] [address]Dr. Garima Pulliam Anion gap [Moles/Vol] 14.5 mmol/L Normal [facility] Comment on above: Performed By: #### C MP ####[facility] Ezinuhofna[address] [place], [place] [address]Dr. Garima Pulliam AST [Catalytic activity/Vol] 19 U/L Normal 15-37 [facility] Comment on above: Performed By: #### C MP ####[facility] Tmyfzlammt[address] [place], [place] [address]Dr. Garima Pulliam Bilirubin [Mass/Vol] 0.4 mg/dL Normal 0.2-1.0 [facility] Comment on above: Performed By: #### C MP ####[facility] Wshzncynlp[address] [place], [place] [address]Dr. Garima Pulliam Calcium [Mass/Vol] 8.7 mg/dL Normal 8.5-10.1 [facility] Comment on above: Performed By: #### C MP ####[facility] Bjpmewraia84[address] [place], [place] [address]Dr. Garima Pulliam Chloride [Moles/Vol] 104 mmol/L Normal 98-107 [facility] Comment on above: Performed By: #### C MP ####[facility] Ohsfoiiutq[address] [place], [place] [address]Dr. Garima Pulliam CO2 [Moles/Vol] 24.5 mmol/L Normal 21.0-32.0 [facility] Comment on above: Performed By: #### C MP ####[facility] Hxrirrfasp[address] [place], [place] [address]Dr. Garima Pulliam Creatinine [Mass/Vol] 0.70 mg/dL Normal 0.70-1.30 [facility] Comment on above: Performed By: #### C MP ####[facility] Faohzbvnxi2426[address] [place], [place] [address]Dr. Garima Heraclio EGFR-AF ECUADOREAN >60 Normal >=60 [facility] Comment on above: Performed By: #### C MP ####[facility] Bcojvbztag[address] [place], [place] [address]Dr. Chapisrenu Heraclio EGFR-NON AF ECUADOREAN >60 Normal >=60 [facility] Comment on above: Performed By: #### C MP ####[facility] Qrbdhuqxkb48[address] [place], [place] [address]Dr. Chapisrenu Pulliam Globulin (S) [Mass/Vol] 2.6 g/dL Normal [facility] Comment on above: Performed By: #### C MP ####[facility] Dwhprfpjxl[address] [place] [address]Dr. Garima Pulliam Glucose [Mass/Vol] 196 mg/dL Critically high 74-106 [facility] Comment on above: Performed By: #### C MP ####[facility] Racfopznfa[address] [place] [address]Dr. Garima Pulliam Potassium [Moles/Vol] 4.0 mmol/L Normal 3.5-5.1 [facility] Comment on above: Performed By: #### C MP ####[facility] Wvitapqknz[address] [place] [address]Dr. Garima Pulliam Protein [Mass/Vol] 6.0 g/dL Critically low 6.4-8.2 [facility] Comment on above: Performed By: #### C MP ####[facility] Chyupwxada[address] [place], [place] [address]Dr. Garima Pulliam Sodium [Moles/Vol] 139 mmol/L Normal 136-145 [facility] Comment on above: Performed By: #### C MP ####[facility] Cdxnpozxga[address] [place], [place] [address]Dr. Garima Pulliam Urea nitrogen [Mass/Vol] 7.0 mg/dL Normal 7.0-18.0 [facility] Comment on above: Performed By: #### C MP ####[facility] Bqmzosstgv[address] [place], [place] [address]Dr. Garima Heraclio Urea nitrogen/Creatinine [Mass ratio] 10.0 mg/mg Normal [facility] Comment on above: Performed By: #### C MP ####[facility] Luukigbppi[address] [place], [place] [address]Dr. Garima Heraclio BNPon 01-12-2023 Natriuretic peptide B (Bld) [Mass/Vol] 141.0 pg/mL Normal <=900.0 [facility] Comment on above: Performed By: #### C MP, BNP, HSTROPN ####[facility] Zowmkafbct16[address] [place], [place] [address]Dr. Garima Heraclio CBC AUTO DIFFon 01-12-2023 BASO # 0.0 103/ul Normal 0.0-0.1 [facility] Comment on above: Performed By: #### C BC ####[facility] [address]vjpqojat[address] [place] [address]Dr. Garima Heraclio Basophils/100 WBC (Bld) 0.2 % Normal 0.2-2.0 [facility] Comment on above: Performed By: #### C BC ####[facility] Rzvzgalzko[address] [place] [address]Dr. Garima Heraclio EO # 0.2 103/ul Normal 0.0-0.7 [facility] Comment on above: Performed By: #### C BC ####[facility] Qjyjixfilg[address] [place] [address]Dr. Garima Heraclio Eosinophils/100 WBC (Bld) 2.7 % Normal 0.9-7.0 [facility] Comment on above: Performed By: #### C BC ####[facility] Dddksytrek[address] [place], [place] [address]Dr. Garima Pulliam Erythrocyte distribution width (RBC) [Ratio] 13.3 % Normal 11.0-15.0 [facility] Comment on above: Performed By: #### C BC ####[facility] Ewtiumocjz[address] [place], [place] [address]Dr. Garima Pulliam Hematocrit (Bld) [Volume fraction] 42.3 % Normal 42.0-54.0 [facility] Comment on above: Performed By: #### C BC ####[facility] Hgzfmyfbia[address] [place], [place] [address]Dr. Garima Pulliam Hemoglobin (Bld) [Mass/Vol] 14.3 g/dL Normal 14.0-18.0 [facility] Comment on above: Performed By: #### C BC ####[facility] Gyikeiojmd6464[address] [place], [place] [address]Dr. Garima Pulliam IG # 0.02 10e3/ul Normal 0.00-0.03 [facility] Comment on above: Performed By: #### C BC ####[facility] [address]wfl[address] [place] [address]Dr. Garima Pulliam IG % 0.2 % Normal 0.0-0.5 [facility] Comment on above: Performed By: #### C BC ####[facility] Nbtsssxxwx27[address] [place] [address]Dr. Garima Pulliam LYMPH # 2.6 103/ul Normal 1.2-3.8 [facility] Comment on above: Performed By: #### C BC ####[facility] Lfukhahrdz[address] [place] [address]Dr. Garima Heraclio Lymphocytes/100 WBC (Bld) 29.6 % Normal 20.5-60.0 [facility] Comment on above: Performed By: #### C BC ####[facility] [address] [place] [address]Dr. Garima Heraclio MANUAL DIFF REQ NO Normal [facility] Comment on above: Performed By: #### C BC ####[facility] Nztjulrgfw3[address] [place] [address]Dr. Garima Pulliam MCH (RBC) [Entitic mass] 30.2 pg Normal 25.9-34.0 [facility] Comment on above: Performed By: #### C BC ####[facility] C[address]hrqanil[address] [place] [address]Dr. Garima Pulliam MCHC (RBC) [Mass/Vol] 33.8 g/dL Normal 29.9-35.2 [facility] Comment on above: Performed By: #### C BC ####[facility] Ovpkeescgj6680 [place] [address]Dr. Garima Pulliam MCV (RBC) [Entitic vol] 89.2 fL Normal 80.0-94.0 [facility] Comment on above: Performed By: #### C BC ####[facility] E[address]tyinhnk[address] [place], [place] [address]Dr. Chapisrenu Pulliam MONO # 0.7 103/ul Normal 0.3-0.8 [facility] Comment on above: Performed By: #### C BC ####[facility] Idflsiezcf2806 [place] [address]Dr. Garima Pulliam Monocytes/100 WBC (Bld) 8.3 % Normal 1.7-12.0 [facility] Comment on above: Performed By: #### C BC ####[facility] Cljkyxesqc[address] [place] [address]Dr. Garima Pulliam NEUT # 5.1 103/ul Normal 1.4-6.5 [facility] Comment on above: Performed By: #### C BC ####[facility] K[address]zqdhmkb37[address] [place] [address]Dr. Garima Pulliam Neutrophils/100 WBC (Bld) 59.0 % Normal 43.0-75.0 [facility] Comment on above: Performed By: #### C BC ####[facility] [address]qb[address]qs[address] [place] [address]Dr. Garima Pulliam Platelet mean volume (Bld) [Entitic vol] 8.7 fL Critically low 9.5-13.5 [facility] Comment on above: Performed By: #### C BC ####[facility] Yjmnxcytwb[address] [place] [address]Dr. Garima Pulliam PLT 182 103/ul Normal 150-450 [facility] Comment on above: Performed By: #### C BC ####[facility] Gdowtlgzbu6133 [place] [address]Dr. Garima Pulliam RBC 4.74 106/ul Normal 4.70-6.10 [facility] Comment on above: Performed By: #### C BC ####[facility] Ix[address] [place], [place] [address]Dr. Garima Pulliam WBC 8.7 103/ul Normal 4.0-11.0 [facility] Comment on above: Performed By: #### C BC ####[facility] [address]ct[address]ke[address] [place], [place] [address]Dr. Garima Pulliam Covid-19 PCR (CVDTB)on 12-25 SARS-CoV-2 (COVID-19) RNA MARIE+probe Ql (Unsp spec) Not detected Normal NOT DETECTED [facility] Comment on above: Result Comment: When [...] for this test is supported by the [place] of Health and Human Service's declaration that [...] be used). Performed By: #### C VDTBH ####[facility] [address]vouobak[address] [place] [address]Dr. Garima Pulliam PROF 14(COMP METB)on 023 Albumin [Mass/Vol] 3.6 g/dL Normal 3.4-5.0 [facility] Comment on above: Performed By: #### C MP, BNP, HSTROPN ####[facility] Otuexxghlp[address] [place] [address]Dr. Garima Pulliam Albumin/Globulin [Mass ratio] 1.5 {ratio} Normal [facility] Comment on above: Performed By: #### C MP, BNP, HSTROPN ####[facility] Iqrklnkbnw16[address] [place] [address]Dr. Garima Pulliam ALP [Catalytic activity/Vol] 79 U/L Normal 46-116 [facility] Comment on above: Performed By: #### C MP, BNP, HSTROPN ####[facility] Cxmgpzghlk5397 [place] [address]Dr. Garima Pulliam ALT [Catalytic activity/Vol] 27 U/L Normal 16-63 [facility] Comment on above: Performed By: #### C MP, BNP, HSTROPN ####[facility] Pzpommwlax[address] [place] [address]Dr. Garima Pulliam Anion gap [Moles/Vol] 11.7 mmol/L Normal Th [facility] Comment on above: Performed By: #### C MP, BNP, HSTROPN ####[facility] Ovgmaptsim67[address] [place] [address]Dr. Garima Pulliam AST [Catalytic activity/Vol] 21 U/L Normal 15-37 [facility] Comment on above: Performed By: #### C MP, BNP, HSTROPN ####[facility] G[address]zghxxwp5[address] [place] [address]Dr. Garima Pulliam Bilirubin [Mass/Vol] 0.3 mg/dL Normal 0.2-1.0 [facility] Comment on above: Performed By: #### C MP, BNP, HSTROPN ####[facility] Tugpnksnbb[address] [place] [address]Dr. Garima Pulliam Calcium [Mass/Vol] 8.9 mg/dL Normal 8.5-10.1 [facility] Comment on above: Performed By: #### C MP, BNP, HSTROPN ####[facility] Kw[address]yrjdtna04[address] [place] [address]Dr. Garima Pulliam Chloride [Moles/Vol] 107 mmol/L Normal 98-107 [facility] Comment on above: Performed By: #### C MP, BNP, HSTROPN ####[facility] Krbdiqitbq0439 [place] [address]Dr. Garima Pulliam CO2 [Moles/Vol] 26.0 mmol/L Normal 21.0-32.0 [facility] Comment on above: Performed By: #### C MP, BNP, HSTROPN ####[facility] Smtijoiiwx[address] [place] [address]Dr. Garima Pulliam Creatinine [Mass/Vol] 0.65 mg/dL Critically low 0.70-1.30 [facility] Comment on above: Performed By: #### C MP, BNP, HSTROPN ####[facility] Rfeddgcgvf5[address] [place] [address]Dr. Yilan Pulliam EGFR-AF ECUADOREAN >60 Normal >=60 [facility] Comment on above: Performed By: #### C MP, BNP, HSTROPN ####[facility] Tfqpmjsoam[address] [place] [address]Dr. Garima Pulliam EGFR-NON AF ECUADOREAN >60 Normal >=60 [facility] Comment on above: Performed By: #### C MP, BNP, HSTROPN ####[facility] Byjaethmvk70[address] [place] [address]Dr. Garima Pulliam Globulin (S) [Mass/Vol] 2.4 g/dL Normal [facility] Comment on above: Performed By: #### C MP, BNP, HSTROPN ####[facility] Bvbmuostks[address] [place], [place] [address]Dr. Garima Pulliam Glucose [Mass/Vol] 85 mg/dL Normal 74-106 [facility] Comment on above: Performed By: #### C MP, BNP, HSTROPN ####[facility] Quldwueibp4[address] [place] [address]Dr. Garima Pulliam Potassium [Moles/Vol] 3.7 mmol/L Normal 3.5-5.1 [facility] Comment on above: Performed By: #### C MP, BNP, HSTROPN ####[facility] Ehksrevdbb1172 [place] [address]Dr. Garima Pulliam Protein [Mass/Vol] 6.0 g/dL Critically low 6.4-8.2 [facility] Comment on above: Performed By: #### C MP, BNP, HSTROPN ####[facility] L[address]rkfqlrt27[address] [place] [address]Dr. Garima Pulliam Sodium [Moles/Vol] 141 mmol/L Normal 136-145 [facility] Comment on above: Performed By: #### C MP, BNP, HSTROPN ####[facility] Vpcqxxcbfk14[address] [place] [address]Dr. Garima Pulliam Urea nitrogen [Mass/Vol] 5.0 mg/dL Critically low 7.0-18.0 [facility] Comment on above: Performed By: #### C MP, BNP, HSTROPN ####[facility] Hhfthciqmh7454 [place] [address]Dr. Garima Pulliam Urea nitrogen/Creatinine [Mass ratio] 7.7 mg/mg Normal [facility] Comment on above: Performed By: #### C MP, BNP, HSTROPN ####[facility] Gherxkpqzp[address] [place] [address]Dr. Garima Pulliam PROTIMEon 01-12-2023 INR Coag (PPP) [Relative time] 1.16 {INR} Normal [facility] Comment on above: Performed By: #### P TT, PT ####[facility] Qzjugyaugk4[address] [place] [address]Dr. Garima Pulliam INR GUIDELINES SEE BELOW Normal [facility] Comment on above: Result Comment: WESLEY RED INR: 2.0 - 3.0 CONDITIONS NOT LISTED BELOW 2.5 - 3.5 FOR PROSTHETIC HEART VALVE REPLACEMENT 2.5 - 3.5 RECURRENT THROMBOSIS Performed By: #### P TT, PT ####[facility] [address]aqmlnkb[address] [place], [place] [address]Dr. Garima Pulliam PT Coag (PPP) [Time] 12.2 s Critically high 9.0-11.6 [facility] Comment on above: Performed By: #### P TT, PT ####[facility] Tskaivlkbx1257 [place] [address]Dr. Garima Pulliam PTTon 01-12-2023 aPTT Coag (Bld) [Time] 29.1 s Normal 22.3-36.2 [facility] Comment on above: Performed By: #### P TT, PT ####[facility] [address]um[address]iew[address] [place], [place] [address]Dr. Garima Pulliam TROPONIN, HIGH SENSITIVITYon 01-12-2023 HSTROP 10.3 pg/mL Normal 4.0-76.1 [facility] Comment on above: Result Comment: CUT- OFF POINTS HAVE BEEN ESTABLISHED BASED ON THE FOURTH UNIVERSAL DEFINITIONS OF MYOCARDIALINFARCTION. THE UPPER REFERENCE LIMIT (URL) OF TROPONIN, DEFINED THE 99TH PERCENTILE OFcTnI DISTRIBUTION IN A REFERENCE POPULATION, HAS BEEN CONFIRMED THE DECISION THRESHOLDFOR CA DIAGNOSIS. Performed By: #### H STROPN ####[facility] Fzhdaykdez[address] [place] [address]Dr. Garima Pulliam HSTROP 9.2 pg/mL Normal 4.0-76.1 [facility] Comment on above: Result Comment: CUT- OFF POINTS HAVE BEEN ESTABLISHED BASED ON THE FOURTH UNIVERSAL DEFINITIONS OF MYOCARDIALINFARCTION. THE UPPER REFERENCE LIMIT (URL) OF TROPONIN, DEFINED THE 99TH PERCENTILE OFcTnI DISTRIBUTION IN A REFERENCE POPULATION, HAS BEEN CONFIRMED THE DECISION THRESHOLDFOR CA DIAGNOSIS. Performed By: #### C MP, BNP, HSTROPN ####[facility] Gcfwpnocnj[address] [place] [address]Dr. Garima Pulliam XR CHEST 1 Von 01-12-2023 XR CHEST 1 V Normal [facility] XR CHEST 1 Von 01-01-2023 XR CHEST 1 V Normal [facility] CARDIAC NASH 3-6on 3 CK [Catalytic activity/Vol] 196 U/L Normal 39-308 [facility] Comment on above: Performed By: #### C MREP ####[facility] Kvjqtejckw4[address] [place] [address]Dr. Garima Pulliam CK.MB [Mass/Vol] 7.41 ng/mL Critically high <=3.60 [facility] Comment on above: Performed By: #### C MREP ####[facility] Mqmlqhvejv8696 [place] [address]Dr. Garima Pulliam HSTROP 10.3 pg/mL Normal 4.0-76.1 [facility] Comment on above: Result Comment: CUT- OFF POINTS HAVE BEEN ESTABLISHED BASED ON THE FOURTH UNIVERSAL DEFINITIONS OF MYOCARDIALINFARCTION. THE UPPER REFERENCE LIMIT (URL) OF TROPONIN, DEFINED THE 99TH PERCENTILE OFcTnI DISTRIBUTION IN A REFERENCE POPULATION, HAS BEEN CONFIRMED THE DECISION THRESHOLDFOR CA DIAGNOSIS. Performed By: #### C MREP ####[facility] Eqcluvgodc1573 [place] [id number]. Garima Pulliam XR CHEST 1 Von 12-26-2022 XR CHEST 1 V Normal [facility] BNPon 12-25-2022 Natriuretic peptide B (Bld) [Mass/Vol] 98.0 pg/mL Normal <=900.0 [facility] Comment on above: Performed By: #### B MARVIN FRENCH CMADM ####[facility] Bgkbilxgyk2[address] [place] [address]Dr. Garima Pulliam CARDIAC NASH ADMITon 023 CK [Catalytic activity/Vol] 208 U/L Normal 39-308 [facility] Comment on above: Performed By: #### B MARVIN FRENCH CMADM ####[facility] Rtlvvssrky1149 [place] [address]Dr. Garima Pulliam CK.MB [Mass/Vol] 7.63 ng/mL Critically high <=3.60 [facility] Comment on above: Performed By: #### B MARVIN FRENCH CMADM ####[facility] [address]qppjdpx[address] [place], [place] [address]Dr. Garima Pulliam HSTROP 8.8 pg/mL Normal 4.0-76.1 [facility] Comment on above: Result Comment: CUT- OFF POINTS HAVE BEEN ESTABLISHED BASED ON THE FOURTH UNIVERSAL DEFINITIONS OF MYOCARDIALINFARCTION. THE UPPER REFERENCE LIMIT (URL) OF TROPONIN, DEFINED THE 99TH PERCENTILE OFcTnI DISTRIBUTION IN A REFERENCE POPULATION, HAS BEEN CONFIRMED THE DECISION THRESHOLDFOR CA DIAGNOSIS. Performed By: #### B MARVIN FRENCH CMADM ####[facility] [address]vqbmfcg[address] [place], [place] [address]Dr. Garima Pulliam DORIS 83 ng/mL Normal 16-96 [facility] Comment on above: Performed By: #### B MARVIN FRENCH CMADM ####[facility] Exatrzfskf[address] [place], [place] [address]Dr. Garima Pulliam CBC AUTO DIFFon 12-25-2022 BASO # 0.0 103/ul Normal 0.0-0.1 [facility] Comment on above: Performed By: #### C BC ####[facility] Hbdfisumca260[address] [place], [place] [address]Dr. Garima Pulliam Basophils/100 WBC (Bld) 0.0 % Critically low 0.2-2.0 [facility] Comment on above: Performed By: #### C BC ####[facility] Yxogdbuewy8923 [place] [address]Dr. Garima Pulliam EO # 0.0 103/ul Normal 0.0-0.7 [facility] Comment on above: Performed By: #### C BC ####[facility] Anadjxusik[address] [place], [place] [address]Dr. Garima Pulliam Eosinophils/100 WBC (Bld) 0.7 % Critically low 0.9-7.0 [facility] Comment on above: Performed By: #### C BC ####[facility] Elaoiqtfyk[address] [place], [place] [address]Dr. Garima Pulliam Erythrocyte distribution width (RBC) [Ratio] 13.4 % Normal 11.0-15.0 [facility] Comment on above: Performed By: #### C BC ####[facility] Xwsxvpwanw[address] [place], [place] [address]Dr. Garima Pulliam Hematocrit (Bld) [Volume fraction] 42.9 % Normal 42.0-54.0 [facility] Comment on above: Performed By: #### C BC ####[facility] Hwrbkdfhsw[address] [place], [place] [address]Dr. Garima Pulliam Hemoglobin (Bld) [Mass/Vol] 14.4 g/dL Normal 14.0-18.0 [facility] Comment on above: Performed By: #### C BC ####[facility] Pikealxmpy[address] [place], [place] [address]Dr. Garima Pulliam IG # 0.00 10e3/ul Normal 0.00-0.03 [facility] Comment on above: Performed By: #### C BC ####[facility] [address]vgzqsjyuf[address] [place], [place] [address]Dr. Garima Pulliam IG % 0.0 % Normal 0.0-0.5 [facility] Comment on above: Performed By: #### C BC ####[facility] Zzwleblvvo[address] [place], [place] [address]Dr. Garima Pulliam LYMPH # 2.4 103/ul Normal 1.2-3.8 [facility] Comment on above: Performed By: #### C BC ####[facility] Adsdpnkqfu6689 [place] [address]Dr. Chapisrenu Pulliam Lymphocytes/100 WBC (Bld) 29.2 % Normal 20.5-60.0 [facility] Comment on above: Performed By: #### C BC ####[facility] Eujhwuoakp5713 [place] [address]Dr. Garima Pulliam MANUAL DIFF REQ NO Normal [facility] Comment on above: Performed By: #### C BC ####[facility] Mjqpdzhkot6446 [place] [id number]. Garima Pulliam MCH (RBC) [Entitic mass] 30.7 pg Normal 25.9-34.0 [facility] Comment on above: Performed By: #### C BC ####[facility] Hfmsykvyby[address] [place], [place] [address]Dr. Garima Pulliam MCHC (RBC) [Mass/Vol] 33.6 g/dL Normal 29.9-35.2 [facility] Comment on above: Performed By: #### C BC ####[facility] Butmgwepkw[address] [place], [place] [address]Dr. Garima Pulliam MCV (RBC) [Entitic vol] 91.5 fL Normal 80.0-94.0 [facility] Comment on above: Performed By: #### C BC ####[facility] [address]ttchkdzv[address] [place], [place] [address]Dr. Garima Pulliam MONO # 0.0 103/ul Critically low 0.3-0.8 [facility] Comment on above: Performed By: #### C BC ####[facility] Wgubqhsggq5251 [place] [address]Dr. Garima Pulliam Monocytes/100 WBC (Bld) 8.0 % Normal 1.7-12.0 [facility] Comment on above: Performed By: #### C BC ####[facility] Xxtjrnzwxy[address] [place], [place] [address]Dr. Garima Pulliam NEUT # 5.1 103/ul Normal 1.4-6.5 [facility] Comment on above: Performed By: #### C BC ####[facility] Yjb[address]zvnw[address] [place], [place] [address]Up. Garima Pulliam Neutrophils/100 WBC (Bld) 62.8 % Normal 43.0-75.0 [facility] Comment on above: Performed By: #### C BC ####[facility] [address]ef[address]xjsfp4[address] [place], [place] [address]Kq. Garima Pulliam Platelet mean volume (Bld) [Entitic vol] 8.6 fL Critically low 9.5-13.5 [facility] Comment on above: Performed By: #### C BC ####[facility] Zmeaxpooop[address] [place] [id number]. Garima Pulliam PLT 200 103/ul Normal 150-450 [facility] Comment on above: Performed By: #### C BC ####[facility] Cxwxhzccog0083 [place] [id number]. Garima Pulliam RBC 4.69 106/ul Critically low 4.70-6.10 [facility] Comment on above: Performed By: #### C BC ####[facility] Fcbmwiloqa4406 [place], [place] [address]Ad. Garima Pulliam WBC 8.2 103/ul Normal 4.0-11.0 [facility] Comment on above: Performed By: #### C BC ####[facility] Lqwnswhntf8[address] [place], [place] [address]Fe. Garima Pulliam [facility]on SARS-CoV-2 (COVID-19) RNA MARIE+probe Ql (Unsp spec) Not detected Normal NOT DETECTED [facility] Comment on above: Result Comment: When [...] for this test is supported by the Painting Machine Operator of Health and Human Service's declaration [...] be used). Performed By: #### C VDTBH ####[facility] Begownywlz[address] [place], [place] [address]Dr. Garima Pulliam INFLUENZA A AND B AGon 12-25 INFLUANEGH SEE BELOW Normal [facility] Comment on above: Result Comment: Nega tive for Flu A protein angiten. Infection due to Flu A cannot be ruled out. Flu A angiten in the sample may be below the detection limit of the test. Performed By: #### I NFLUAB ####[facility] Klkuvezngh[address] [place], [place] [address]Dr. Garima Pulliam INFLUBNEGH SEE BELOW Normal [facility] Comment on above: Result Comment: Nega tive for Flu B protein antigen. Infection due to Flu B cannot be ruled out. Flu B antigen in the sample may be below the detection limit of the test. Performed By: #### I NFLUAB ####[facility] Xkizrd[address]zt[address] [place], [place] [address]Dr. Garima Pulliam INFLUENZA A AG Negative Normal NEGATIVE SEE COMMENT [facility] Comment on above: Performed By: #### I NFLUAB ####[facility] Pdruhoxxki[address] [place], [place] [address]Dr. renu [facility] INFLUENZA B AG Negative Normal NEGATIVE SEE COMMENT [facility] Comment on above: Performed By: #### I NFLUAB ####[facility] Jhuuisfuct[address] [place], [place] [address]Dr. Garima Pulliam PROF CHEM 8 (BAS METB)on Anion gap [Moles/Vol] 11.1 mmol/L Normal Th [facility] Comment on above: Performed By: #### B STATION INSTALLER AND REPAIRER, BMP, CMADM ####[facility] Sjvlpxdxfr[address] [place], [place] [address]Dr. Garima Pulliam Calcium [Mass/Vol] 8.5 mg/dL Normal 8.5-10.1 The [facility] Comment on above: Performed By: #### B STATION INSTALLER AND REPAIRER, MARVIN, CMADM ####[facility] Qwnezpqves4800 [place] [id number]. Garima Pulliam Chloride [Moles/Vol] 106 mmol/L Normal 98-107 [facility] Comment on above: Performed By: #### B STATION INSTALLER AND REPAIRER, BMP, CMADM ####[facility] Lpoyrutscv68[address] [place] [address]Dr. Garima Pulliam CO2 [Moles/Vol] 27.4 mmol/L Normal 21.0-32.0 The [facility] Comment on above: Performed By: #### B STATION INSTALLER AND REPAIRER, MARVIN, CMADM ####[facility] Nowivsnqjw4986 [place] [address]Dr. Garima Pulliam Creatinine [Mass/Vol] 0.65 mg/dL Critically low 0.70-1.30 [facility] Comment on above: Performed By: #### B STATION INSTALLER AND REPAIRER, MARVIN, CMADM ####[facility] Imyyboqfxn3640 [place] [address]Dr. Garima Pulliam EGFR-AF ECUADOREAN >60 Normal >=60 [facility] Comment on above: Performed By: #### B STATION INSTALLER AND REPAIRER, BMP, CMADM ####[facility] Ckadoxigut[address] [place] [address]Dr. Garima Pulliam EGFR-NON AF ECUADOREAN >60 Normal >=60 [facility] Comment on above: Performed By: #### B STATION INSTALLER AND REPAIRER, BMP, CMADM ####[facility] Kqnjpuuwls5[address] [place] [address]Dr. Garima Pulliam Glucose [Mass/Vol] 140 mg/dL Critically high 74-106 [facility] Comment on above: Performed By: #### B STATION INSTALLER AND REPAIRER, BMP, CMADM ####[facility] Cepxiaihqc2419 [place] [address]Dr. Garima Pulliam Potassium [Moles/Vol] 3.5 mmol/L Normal 3.5-5.1 [facility] Comment on above: Performed By: #### B STATION INSTALLER AND REPAIRER, BMP, CMADM ####[facility] Rajaqbzozh2834 [place] [address]Dr. Garima Pulliam Sodium [Moles/Vol] 141 mmol/L Normal 136-145 [facility] Comment on above: Performed By: #### B STATION INSTALLER AND REPAIRER, BMP, CMADM ####[facility] Fapkmbtobx74[address] [place] [address]Dr. Garima Pulliam Urea nitrogen [Mass/Vol] 8.0 mg/dL Normal 7.0-18.0 [facility] Comment on above: Performed By: #### B STATION INSTALLER AND REPAIRER, BMP, CMADM ####[facility] Vlzscokurd8254 [place] [address]Dr. Garima Pulliam Urea nitrogen/Creatinine [Mass ratio] 12.3 mg/mg Normal [facility] Comment on above: Performed By: #### B STATION INSTALLER AND REPAIRER, BMP, CMADM ####[facility] Ykrpsegjeq6[address] [place], [place] [address]Dr. Garima Pulliam CARDIAC NASH ADMITon 023 CK [Catalytic activity/Vol] 165 U/L Normal 39-308 [facility] Comment on above: Performed By: #### B DAVID, CMADM ####[facility] Ggtjncmfco[address] [place], [place] [address]Dr. Garima Pulliam CK.MB [Mass/Vol] 6.48 ng/mL Critically high <=3.60 [facility] Comment on above: Performed By: #### B MP, CMADM ####[facility] Jplnwgpank[address] [place], [place] [address]Dr. Garima Pulliam HSTROP 11.7 pg/mL Normal 4.0-76.1 [facility] Comment on above: Result Comment: CUT- OFF POINTS HAVE BEEN ESTABLISHED BASED ON THE FOURTH UNIVERSAL DEFINITIONS OF MYOCARDIALINFARCTION. THE UPPER REFERENCE LIMIT (URL) OF TROPONIN, DEFINED THE 99TH PERCENTILE OFcTnI DISTRIBUTION IN A REFERENCE POPULATION, HAS BEEN CONFIRMED THE DECISION THRESHOLDFOR CA DIAGNOSIS. Performed By: #### B MP, CMADM ####[facility] Dlsimugcih[address] [place], [place] [address]Dr. Garima Pulliam DORIS 83 ng/mL Normal 16-96 [facility] Comment on above: Performed By: #### B MP, CMADM ####[facility] Guhzzjzxuz7[address] [place] [address]Dr. Garima Pulliam CBC AUTO DIFFon 12-10-2022 BASO # 0.0 103/ul Normal 0.0-0.1 [facility] Comment on above: Performed By: #### C BC ####[facility] Weebxegybq[address] [place], [place] [address]Dr. Garima Heraclio Basophils/100 WBC (Bld) 0.3 % Normal 0.2-2.0 [facility] Comment on above: Performed By: #### C BC ####[facility] Sikfxorzyx[address] [place], [place] [address]Dr. Garima Pulliam EO # 0.1 103/ul Normal 0.0-0.7 [facility] Comment on above: Performed By: #### C BC ####[facility] Rhuqjksedv[address] [place], [place] [address]Dr. Garima Pulliam Eosinophils/100 WBC (Bld) 0.4 % Critically low 0.9-7.0 [facility] Comment on above: Performed By: #### C BC ####[facility] Ziooucwmya[address] [place], [place] [address]Dr. Garima Pulliam Erythrocyte distribution width (RBC) [Ratio] 13.2 % Normal 11.0-15.0 [facility] Comment on above: Performed By: #### C BC ####[facility] Ijlydkvdoq[address] [place], [place] [address]Dr. Garima Pulliam Hematocrit (Bld) [Volume fraction] 42.4 % Normal 42.0-54.0 [facility] Comment on above: Performed By: #### C BC ####[facility] Bbiursodte[address] [place], [place] [address]Dr. Garima Pulliam Hemoglobin (Bld) [Mass/Vol] 14.4 g/dL Normal 14.0-18.0 [facility] Comment on above: Performed By: #### C BC ####[facility] Ozyixvvhrw23[address] [place] [address]Dr. Garima Heraclio IG # 0.05 10e3/ul Critically high 0.00-0.03 The [facility] Comment on above: Performed By: #### C BC ####[facility] Ofaxtwjrlh8693 [place] [address]Dr. Garima Heraclio IG % 0.4 % Normal 0.0-0.5 [facility] Comment on above: Performed By: #### C BC ####[facility] Edniaggrwk[address] [place], [place] [address]Dr. Garima Pulliam LYMPH # 0.8 103/ul Critically low 1.2-3.8 The [facility] Comment on above: Performed By: #### C BC ####[facility] Tlkdbvoceq[address] [place], [place] [address]Dr. Chapisrenu Pulliam Lymphocytes/100 WBC (Bld) 6.5 % Critically low 20.5-60.0 [facility] Comment on above: Performed By: #### C BC ####[facility] Afjgmctutt[address] [place], [place] [address]Dr. Chapisrenu Pulliam MANUAL DIFF REQ NO Normal [facility] Comment on above: Performed By: #### C BC ####[facility] Qnmbuysnua5[address] [place], [place] [address]DrAdalberto Garima Pulliam MCH (RBC) [Entitic mass] 30.5 pg Normal 25.9-34.0 [facility] Comment on above: Performed By: #### C BC ####[facility] Ppzgmegyec[address] [place], [place] [address]DrAdalberto Garima Heraclio MCHC (RBC) [Mass/Vol] 34.0 g/dL Normal 29.9-35.2 [facility] Comment on above: Performed By: #### C BC ####[facility] Dyxcxvboam[address] [place], [place] [address]DrAdalberto Garima Heraclio MCV (RBC) [Entitic vol] 89.8 fL Normal 80.0-94.0 [facility] Comment on above: Performed By: #### C BC ####[facility] Cochhgrbux[address] [place], [place] [address]Dr. Garima Pulliam MONO # 0.2 103/ul Critically low 0.3-0.8 The [facility] Comment on above: Performed By: #### C BC ####[facility] Ghdvzrbyly8259 [place] [address]Dr. Garima Pulliam Monocytes/100 WBC (Bld) 2.0 % Normal 1.7-12.0 [facility] Comment on above: Performed By: #### C BC ####[facility] Cfqwzdyrvx0683 [place] [address]Dr. Chapisrenu Heraclio NEUT # 10.5 103/ul Critically high 1.4-6.5 The [facility] Comment on above: Performed By: #### C BC ####[facility] Wfshjfxszw6963 [place] [address]Dr. Garima Pulliam Neutrophils/100 WBC (Bld) 90.4 % Critically high 43.0-75.0 [facility] Comment on above: Performed By: #### C BC ####[facility] Ifrnyajjlb7476 [place] [address]Dr. Garima Pulliam Platelet mean volume (Bld) [Entitic vol] 9.4 fL Critically low 9.5-13.5 [facility] Comment on above: Performed By: #### C BC ####[facility] Sdvwyattfp1828 [place] [address]Dr. Garima Pulliam PLT 198 103/ul Normal 150-450 [facility] Comment on above: Performed By: #### C BC ####[facility] Dyhxlsdcrs59[address] [place] [address]Dr. Garima Pulliam RBC 4.72 106/ul Normal 4.70-6.10 [facility] Comment on above: Performed By: #### C BC ####[facility] Awrvmwhlhr4148 [place] [address]Dr. Garima Pulliam WBC 11.6 103/ul Critically high 4.0-11.0 The [facility] Comment on above: Performed By: #### C BC ####[facility] Dpwmdiisqt0693 [place] [address]DrAdalberto Pulliam PROF CHEM 8 (BAS METB)on Anion gap [Moles/Vol] 11.3 mmol/L Normal Th [facility] Comment on above: Performed By: #### B NANCY HERNANDEZ ####[facility] Elkqzmcdpg1887 [place] [address]Dr. Garima Pulliam Calcium [Mass/Vol] 8.9 mg/dL Normal 8.5-10.1 [facility] Comment on above: Performed By: #### B NANCY HERNANDEZ ####[facility] Zaqpucgsvm4647 [place] [address]Dr. Garima Pulliam Chloride [Moles/Vol] 103 mmol/L Normal 98-107 [facility] Comment on above: Performed By: #### B NANCY HERNANDEZ ####[facility] Ebpxsrivil[address] [place], [place] [address]Dr. Garima Pulliam CO2 [Moles/Vol] 28.2 mmol/L Normal 21.0-32.0 [facility] Comment on above: Performed By: #### NANCY Larkin MP ####[facility] Prztjqwcoe07[address] [place] [address]Dr. Chapisrenu Pulliam Creatinine [Mass/Vol] 0.60 mg/dL Critically low 0.70-1.30 [facility] Comment on above: Performed By: #### NANCY Larkin MP ####[facility] Tdfdhviqai[address] [place] [address]Dr. Garima Pulliam EGFR-AF ECUADOREAN >60 Normal >=60 [facility] Comment on above: Performed By: #### NANCY Larkin MP ####[facility] Jwsiqbfcvh7618 [place] [address]Dr. Garima Pulliam EGFR-NON AF ECUADOREAN >60 Normal >=60 [facility] Comment on above: Performed By: #### NANCY Larkin MP ####[facility] Lmedcewdno[address] [place], [place] [address]Dr. Garima Pulliam Glucose [Mass/Vol] 166 mg/dL Critically high 74-106 [facility] Comment on above: Performed By: #### B MP, CMADM ####[facility] Deyckeinnn[address] [place] [address]Dr. Garima Pulliam Potassium [Moles/Vol] 3.5 mmol/L Normal 3.5-5.1 [facility] Comment on above: Performed By: #### B MP, CMADM ####[facility] Sdgnocrpps5852 [place] [address]Dr. Garima Pulliam Sodium [Moles/Vol] 139 mmol/L Normal 136-145 The [facility] Comment on above: Performed By: #### B DAVID, CMADM ####[facility] Ltbnemlfgk0255 [place] [address]Dr. Garima Heraclio Urea nitrogen [Mass/Vol] 9.0 mg/dL Normal 7.0-18.0 [facility] Comment on above: Performed By: #### B DAVID, NANCY ####[facility] Eivqboylvx0[address] [place], [place] [address]Dr. Garima Heraclio Urea nitrogen/Creatinine [Mass ratio] 15.0 mg/mg Normal [facility] Comment on above: Performed By: #### B DAVID, CMAANA ROSA ####[facility] Novdgxxwdm[address] [place], [place] [address]Dr. Garima Pulliam XR CHEST 1 Von 12-10-2022 XR CHEST 1 V Normal [facility] BNPon 11-27-2022 Natriuretic peptide B (Bld) [Mass/Vol] 95.0 pg/mL Normal <=900.0 [facility] Comment on above: Performed By: #### C MP, HSTROPN, BNP ####[facility] Jsxouehfey[address] [place], [place] [address]Dr. Garima Heraclio CBC AUTO DIFFon 11-27-2022 BASO # 0.0 103/ul Normal 0.0-0.1 [facility] Comment on above: Performed By: #### C BC ####[facility] Zzhfksapdm[address] [place], [place] [address]Dr. Garima Heraclio Basophils/100 WBC (Bld) 0.2 % Normal 0.2-2.0 [facility] Comment on above: Performed By: #### C BC ####[facility] Wjifgpilji2668 [place] [address]Dr. Garima Pulliam EO # 0.2 103/ul Normal 0.0-0.7 [facility] Comment on above: Performed By: #### C BC ####[facility] Pskctztzqx8526 [place] [address]Dr. Garima Pulliam Eosinophils/100 WBC (Bld) 2.0 % Normal 0.9-7.0 [facility] Comment on above: Performed By: #### C BC ####[facility] Suhvrwvkgx[address] [place], [place] [address]Dr. Garima Pulliam Erythrocyte distribution width (RBC) [Ratio] 13.2 % Normal 11.0-15.0 [facility] Comment on above: Performed By: #### C BC ####[facility] Vkhjbbfevg[address] [place], [place] [address]Dr. Garima Pulliam Hematocrit (Bld) [Volume fraction] 42.4 % Normal 42.0-54.0 [facility] Comment on above: Performed By: #### C BC ####[facility] Xkneugserm[address] [place], [place] [address]Dr. Garima Pulliam Hemoglobin (Bld) [Mass/Vol] 14.4 g/dL Normal 14.0-18.0 [facility] Comment on above: Performed By: #### C BC ####[facility] Xqrwtzugxh[address] [place], [place] [address]Dr. Garima Pulliam IG # 0.04 10e3/ul Critically high 0.00-0.03 [facility] Comment on above: Performed By: #### C BC ####[facility] Syjzycwbtw[address] [place], [place] [address]Dr. Garima Pulliam IG % 0.4 % Normal 0.0-0.5 [facility] Comment on above: Performed By: #### C BC ####[facility] Czdigygcmm[address] [place], [place] [address]Dr. Garima Pulliam LYMPH # 2.2 103/ul Normal 1.2-3.8 [facility] Comment on above: Performed By: #### C BC ####[facility] Pwgdqakuep1538 [place] [address]Dr. Garima Pulliam Lymphocytes/100 WBC (Bld) 21.5 % Normal 20.5-60.0 [facility] Comment on above: Performed By: #### C BC ####[facility] Eyskugfmxa7556 [place] [address]Dr. Garima Heraclio MANUAL DIFF REQ NO Normal [facility] Comment on above: Performed By: #### C BC ####[facility] Cholktxmqr2039 [place] [address]Dr. Garima Heraclio MCH (RBC) [Entitic mass] 30.4 pg Normal 25.9-34.0 [facility] Comment on above: Performed By: #### C BC ####[facility] [address]wiqomaytu3[address] [place] [address]Dr. Garima Heraclio MCHC (RBC) [Mass/Vol] 34.0 g/dL Normal 29.9-35.2 [facility] Comment on above: Performed By: #### C BC ####[facility] Eqoamvtfas6593 [place] [address]Dr. Garima Pulliam MCV (RBC) [Entitic vol] 89.6 fL Normal 80.0-94.0 [facility] Comment on above: Performed By: #### C BC ####[facility] Ldhhayyeyu9169 [place] [address]Dr. Garima Pulliam MONO # 0.8 103/ul Normal 0.3-0.8 [facility] Comment on above: Performed By: #### C BC ####[facility] Rvpguxlzgp1708 [place] [address]Dr. Chapisrenu Pulliam Monocytes/100 WBC (Bld) 7.7 % Normal 1.7-12.0 [facility] Comment on above: Performed By: #### C BC ####[facility] Fyrarqjjak[address] [place], [place] [address]Dr. Garima Pulliam NEUT # 7.0 103/ul Critically high 1.4-6.5 [facility] Comment on above: Performed By: #### C BC ####[facility] Zuetbrssvd9498 [place] [address]Dr. Garima Pulliam Neutrophils/100 WBC (Bld) 68.2 % Normal 43.0-75.0 [facility] Comment on above: Performed By: #### C BC ####[facility] Rrivfmardv4493 [place] [address]Dr. Chapisrenu Pulliam Platelet mean volume (Bld) [Entitic vol] 8.9 fL Critically low 9.5-13.5 [facility] Comment on above: Performed By: #### C BC ####[facility] Tfgzmuifik[address] [place] [address]Dr. Garima Pulliam PLT 222 103/ul Normal 150-450 [facility] Comment on above: Performed By: #### C BC ####[facility] Fxnvcxdlrd5693 [place] [address]Dr. Garima Pulliam RBC 4.73 106/ul Normal 4.70-6.10 [facility] Comment on above: Performed By: #### C BC ####[facility] Zbrkwzvzhb6173 [place] [address]Dr. Garima Pulliam WBC 10.3 103/ul Normal 4.0-11.0 [facility] Comment on above: Performed By: #### C BC ####[facility] Cmsuzvdebe8444 [place] [address]Dr. Garima Pulliam PROF 14(COMP METB)on 023 Albumin [Mass/Vol] 3.7 g/dL Normal 3.4-5.0 [facility] Comment on above: Performed By: #### C MP, HSTROPN, BNP ####[facility] Nulxlbfpmg3414 [place] [address]Dr. Chapisrenu Pulliam Albumin/Globulin [Mass ratio] 1.5 {ratio} Normal [facility] Comment on above: Performed By: #### C MP, HSTROPN, BNP ####[facility] Skxlkwvixu0895 [place] [address]Dr. Garima Pulliam ALP [Catalytic activity/Vol] 79 U/L Normal 46-116 [facility] Comment on above: Performed By: #### C MP, HSTROPN, BNP ####[facility] Ktjftfubyi68[address] [place] [address]Dr. Garima Pulliam ALT [Catalytic activity/Vol] 32 U/L Normal 16-63 [facility] Comment on above: Performed By: #### C MP, HSTROPN, BNP ####[facility] Pfxajeqfra5213 [place] [address]Dr. Garima Pulliam Anion gap [Moles/Vol] 9.5 mmol/L Normal [facility] Comment on above: Performed By: #### C MP, HSTROPN, BNP ####[facility] [address]jbodzga[address] [place], [place] [address]Dr. Garima Pulliam AST [Catalytic activity/Vol] 25 U/L Normal 15-37 [facility] Comment on above: Performed By: #### C MP, HSTROPN, BNP ####[facility] Wfexjfnhil[address] [place], [place] [address]Dr. Chapislan Pulliam Bilirubin [Mass/Vol] 0.4 mg/dL Normal 0.2-1.0 [facility] Comment on above: Performed By: #### C MP, HSTROPN, BNP ####[facility] Abvyaznqaz[address] [place], [place] [address]Dr. Garima Pulliam Calcium [Mass/Vol] 8.9 mg/dL Normal 8.5-10.1 [facility] Comment on above: Performed By: #### C MP, HSTROPN, BNP ####[facility] Bttezggxoj[address] [place], [place] [address]Dr. Chapislan Pulliam Chloride [Moles/Vol] 103 mmol/L Normal 98-107 [facility] Comment on above: Performed By: #### C MP, HSTROPN, BNP ####[facility] Ulmiqsbwwk[address] [place], [place] [address]Dr. Yilan Pulliam CO2 [Moles/Vol] 28.6 mmol/L Normal 21.0-32.0 The [facility] Comment on above: Performed By: #### C MP, HSTROPN, BNP ####[facility] Vvgsmvzobk8692 [place] [address]Dr. Garima Pulliam Creatinine [Mass/Vol] 0.72 mg/dL Normal 0.70-1.30 [facility] Comment on above: Performed By: #### C MP, HSTROPN, BNP ####[facility] Zzhxpinjuy9738 [place] [address]Dr. Garima Pulliam EGFR-AF ECUADOREAN >60 Normal >=60 [facility] Comment on above: Performed By: #### C MP, HSTROPN, BNP ####[facility] Hdxblldncl0850 [place] [address]Dr. Garima Pulliam EGFR-NON AF ECUADOREAN >60 Normal >=60 [facility] Comment on above: Performed By: #### C MP, HSTROPN, BNP ####[facility] Bdlmwnctse2257 [place] [address]Dr. Garima Pulliam Globulin (S) [Mass/Vol] 2.5 g/dL Normal [facility] Comment on above: Performed By: #### C MP, HSTROPN, BNP ####[facility] H[address]imdgmxrq[address] [place], [place] [address]Dr. Garima Pulliam Glucose [Mass/Vol] 114 mg/dL Critically high 74-106 [facility] Comment on above: Performed By: #### C MP, HSTROPN, BNP ####[facility] Nqrnelbfcq[address] [place], [place] [address]Dr. Garima Pulliam Potassium [Moles/Vol] 4.1 mmol/L Normal 3.5-5.1 [facility] Comment on above: Performed By: #### C MP, HSTROPN, BNP ####[facility] Mluulynngf[address] [place], [place] [address]Dr. Garima Pulliam Protein [Mass/Vol] 6.2 g/dL Critically low 6.4-8.2 Th [facility] Comment on above: Performed By: #### C MP, HSTROPN, BNP ####[facility] [address]xb[address]qywcag[address] [place], [place] [address]Dr. Yilan Pulliam Sodium [Moles/Vol] 137 mmol/L Normal 136-145 [facility] Comment on above: Performed By: #### C MP, HSTROPN, BNP ####[facility] Xhyvijnupz55[address] [place] [address]Dr. Garima Pulliam Urea nitrogen [Mass/Vol] 13.0 mg/dL Normal 7.0-18.0 [facility] Comment on above: Performed By: #### C MP, HSTROPN, BNP ####[facility] [address] [place] [address]Dr. Garima Pulliam Urea nitrogen/Creatinine [Mass ratio] 18.1 mg/mg Normal [facility] Comment on above: Performed By: #### C MP, HSTROPN, BNP ####[facility] F[address]bu[address] [place], [place] [address]Dr. Garima Pulliam TROPONIN, HIGH SENSITIVITYon 11-27-2022 HSTROP 11.8 pg/mL Normal 4.0-76.1 [facility] Comment on above: Result Comment: CUT- OFF POINTS HAVE BEEN ESTABLISHED BASED ON THE FOURTH UNIVERSAL DEFINITIONS OF MYOCARDIALINFARCTION. THE UPPER REFERENCE LIMIT (URL) OF TROPONIN, DEFINED THE 99TH PERCENTILE OFcTnI DISTRIBUTION IN A REFERENCE POPULATION, HAS BEEN CONFIRMED THE DECISION THRESHOLDFOR CA DIAGNOSIS. Performed By: #### C MP, HSTROPN, BNP ####[facility] [address] [place], [place] [address]Dr. Garima Pulliam XR CHEST 1 Von 11-27-2022 XR CHEST 1 V Normal [facility] BNPon 11-20-2022 Natriuretic peptide B (Bld) [Mass/Vol] 73.0 pg/mL Normal <=900.0 [facility] Comment on above: Performed By: #### B MP, HSTROPN, BNP ####[facility] Eznj[address] [place], [place] [address]Dr. Garima Pulliam CBC AUTO DIFFon 11-20-2022 BASO # 0.0 103/ul Normal 0.0-0.1 [facility] Comment on above: Performed By: #### C BC ####[facility] [address] [place] [address]Dr. Garima Pulliam Basophils/100 WBC (Bld) 0.3 % Normal 0.2-2.0 [facility] Comment on above: Performed By: #### C BC ####[facility] Rkwgrcfzpf[address] [place] [address]Dr. Garima Pulliam EO # 0.2 103/ul Normal 0.0-0.7 [facility] Comment on above: Performed By: #### C BC ####[facility] Tvbbkiiidm[address] [place] [address]Dr. Garima Pulliam Eosinophils/100 WBC (Bld) 2.1 % Normal 0.9-7.0 [facility] Comment on above: Performed By: #### C BC ####[facility] Ufoppojlou[address] [place], [place] [address]Dr. Garima Pulliam Erythrocyte distribution width (RBC) [Ratio] 13.2 % Normal 11.0-15.0 [facility] Comment on above: Performed By: #### C BC ####[facility] [address]rktans[address] [place], [place] [address]Dr. Garima Pulliam Hematocrit (Bld) [Volume fraction] 43.4 % Normal 42.0-54.0 [facility] Comment on above: Performed By: #### C BC ####[facility] H[address]iypl[address] [place], [place] [address]Dr. Garima Pulliam Hemoglobin (Bld) [Mass/Vol] 14.6 g/dL Normal 14.0-18.0 [facility] Comment on above: Performed By: #### C BC ####[facility] Feexmylmfl[address] [place] [address]Dr. Garima Pulliam IG # 0.02 10e3/ul Normal 0.00-0.03 [facility] Comment on above: Performed By: #### C BC ####[facility] Egiftfvxom[address] [place] [address]Dr. Garima Pulliam IG % 0.2 % Normal 0.0-0.5 [facility] Comment on above: Performed By: #### C BC ####[facility] Gfeykvabzh[address] [place] [address]Dr. Garima Heraclio LYMPH # 2.1 103/ul Normal 1.2-3.8 [facility] Comment on above: Performed By: #### C BC ####[facility] Ifickxetzq1398 [place] [address]Dr. Garima Heraclio Lymphocytes/100 WBC (Bld) 19.2 % Critically low 20.5-60.0 [facility] Comment on above: Performed By: #### C BC ####[facility] Ggftxekwxy[address] [place] [address]Dr. Chapisrenu Pulliam MANUAL DIFF REQ NO Normal [facility] Comment on above: Performed By: #### C BC ####[facility] Dbkewcerxu25[address] [place] [address]Dr. Garima Heraclio MCH (RBC) [Entitic mass] 30.4 pg Normal 25.9-34.0 [facility] Comment on above: Performed By: #### C BC ####[facility] J[address]lsvudota[address] [place] [address]Dr. Garima Pulliam MCHC (RBC) [Mass/Vol] 33.6 g/dL Normal 29.9-35.2 [facility] Comment on above: Performed By: #### C BC ####[facility] Qenoequvum[address] [place] [address]Dr. Garima Heraclio MCV (RBC) [Entitic vol] 90.4 fL Normal 80.0-94.0 [facility] Comment on above: Performed By: #### C BC ####[facility] Xnsvowhblu76[address] [place] [address]Dr. Garima Heraclio MONO # 0.6 103/ul Normal 0.3-0.8 [facility] Comment on above: Performed By: #### C BC ####[facility] Ozkqoarawk[address] [place] [address]Dr. Garima Heraclio Monocytes/100 WBC (Bld) 5.8 % Normal 1.7-12.0 [facility] Comment on above: Performed By: #### C BC ####[facility] N[address]ig[address]axso[address] [place], [place] [address]Gr. Garima Pulliam NEUT # 7.8 103/ul Critically high 1.4-6.5 [facility] Comment on above: Performed By: #### C BC ####[facility] Iihfnxtgmc2778 [place] [address]Dr. Garima Pulliam Neutrophils/100 WBC (Bld) 72.4 % Normal 43.0-75.0 [facility] Comment on above: Performed By: #### C BC ####[facility] Sgkubbyrlo6228 [place] [address]Dr. Garima Pulliam Platelet mean volume (Bld) [Entitic vol] 8.7 fL Critically low 9.5-13.5 [facility] Comment on above: Performed By: #### C BC ####[facility] Owwwvrglhe4595 [place] [address]Dr. Garima Pulliam PLT 184 103/ul Normal 150-450 [facility] Comment on above: Performed By: #### C BC ####[facility] Efhoeghxlb[address] [place], [place] [address]Qc. Garima Pulliam RBC 4.80 106/ul Normal 4.70-6.10 [facility] Comment on above: Performed By: #### C BC ####[facility] Luqvcxudro0397 [place] [address]Dr. Garima Pulliam WBC 10.8 103/ul Normal 4.0-11.0 [facility] Comment on above: Performed By: #### C BC ####[facility] Klqffzmeqm8415 [place] [address]Dr. Garima Pulliam [facility]on [facility]-24 SARS-CoV-2 (COVID-19) RNA MARIE+probe Ql (Unsp spec) Not detected Normal NOT DETECTED [facility] Comment on above: Result Comment: When [...] for this test is supported by the [employer] of Health and Human Service's declaration [...] be used). Performed By: #### C VDTBH ####[facility] Atlkapqaiq[address] [place], [place] [address]Dr. Garima Pulliam INFLUENZA A AND B AGon 11-20 [facility] SEE BELOW Normal [facility] Comment on above: Result Comment: Nega tive for Flu A protein angiten. Infection due to Flu A cannot be ruled out. Flu A angiten in the sample may be below the detection limit of the test. Performed By: #### I NFLUAB ####[facility] Sopylwzmxt[address] [place], [place] [address]Dr. Garima Pulliam INFLUBNEGH SEE BELOW Normal [facility] Comment on above: Result Comment: Nega tive for Flu B protein antigen. Infection due to Flu B cannot be ruled out. Flu B antigen in the sample may be below the detection limit of the test. Performed By: #### I NFLUAB ####[facility] Phioliacjg[address] [place], [place] [address]Dr. Garima Pulliam INFLUENZA A AG Negative Normal NEGATIVE SEE COMMENT [facility] Comment on above: Performed By: #### I NFLUAB ####[facility] Jyjls[address] [place], [place] [address]Dr. Garima [facility] INFLUENZA B AG Negative Normal NEGATIVE SEE COMMENT [facility] Comment on above: Performed By: #### I NFLUAB ####[facility] Hocorbuots[address] [place], [place] [address]Dr. Garima Pulliam PROF CHEM 8 (BAS METB)on Anion gap [Moles/Vol] 8.2 mmol/L Normal [facility] Comment on above: Performed By: #### B MP, HSTROPN, BNP ####[facility] Wdembwcdiq[address] [place] [address]Dr. Garima Pulliam Calcium [Mass/Vol] 8.7 mg/dL Normal 8.5-10.1 [facility] Comment on above: Performed By: #### B MP, HSTROPN, BNP ####[facility] Soyntmmcpo6[address] [place] [address]Dr. Garima Pulliam Chloride [Moles/Vol] 103 mmol/L Normal 98-107 [facility] Comment on above: Performed By: #### B MP, HSTROPN, BNP ####[facility] Gmhsgbiinb[address] [place], [place] [address]Dr. Garima Pulliam CO2 [Moles/Vol] 29.4 mmol/L Normal 21.0-32.0 [facility] Comment on above: Performed By: #### B MP, HSTROPN, BNP ####[facility] Yxeejdipgh[address] [place], [place] [address]Dr. Garima Pulliam Creatinine [Mass/Vol] 0.69 mg/dL Critically low 0.70-1.30 [facility] Comment on above: Performed By: #### B MP, HSTROPN, BNP ####[facility] K[address]rncrz[address] [place] [address]Dr. Garima Pulliam EGFR-AF ECUADOREAN >60 Normal >=60 [facility] Comment on above: Performed By: #### B MP, HSTROPN, BNP ####[facility] [address]cl[address] [place], [place] [address]Dr. Garima Pulliam EGFR-NON AF ECUADOREAN >60 Normal >=60 [facility] Comment on above: Performed By: #### B MP, HSTROPN, BNP ####[facility] K[address]ayqnlch[address] [place] [address]Dr. Garima Pulliam Glucose [Mass/Vol] 209 mg/dL Critically high 74-106 [facility] Comment on above: Performed By: #### B MP, HSTROPN, BNP ####[facility] Eslyvuuzcz[address] [place] [address]Dr. Garima Pulliam Potassium [Moles/Vol] 3.6 mmol/L Normal 3.5-5.1 [facility] Comment on above: Performed By: #### B MP, HSTROPN, BNP ####[facility] Ugvzcpmcii[address] [place] [address]Dr. Garima Pulliam Sodium [Moles/Vol] 137 mmol/L Normal 136-145 [facility] Comment on above: Performed By: #### B MP, HSTROPN, BNP ####[facility] S[address]cgszfr[address] [place] [address]Dr. Garima Pulliam Urea nitrogen [Mass/Vol] 11.0 mg/dL Normal 7.0-18.0 [facility] Comment on above: Performed By: #### B MP, HSTROPN, BNP ####[facility] Dbmmuxudeo0[address] [place] [address]Dr. Garima Pulliam Urea nitrogen/Creatinine [Mass ratio] 15.9 mg/mg Normal [facility] Comment on above: Performed By: #### B MP, HSTROPN, BNP ####[facility] [address]xhjcxdtue[address] [place] [address]Dr. Garima Pulliam TROPONIN, HIGH SENSITIVITYon 11-20-2022 HSTROP 8.7 pg/mL Normal 4.0-76.1 [facility] Comment on above: Result Comment: CUT- OFF POINTS HAVE BEEN ESTABLISHED BASED ON THE FOURTH UNIVERSAL DEFINITIONS OF MYOCARDIALINFARCTION. THE UPPER REFERENCE LIMIT (URL) OF TROPONIN, DEFINED THE 99TH PERCENTILE OFcTnI DISTRIBUTION IN A REFERENCE POPULATION, HAS BEEN CONFIRMED THE DECISION THRESHOLDFOR CA DIAGNOSIS. Performed By: #### B MP, HSTROPN, BNP ####[facility] Wtdoxxpwey[address] [place] [address]Dr. Garima Pulliam XR CHEST 1 Von 11-20-2022 XR CHEST 1 V Normal [facility] XR CHEST 1 Von 10-02-2022 XR CHEST 1 V Normal [facility] BNPon 09-29-2022 Natriuretic peptide B (Bld) [Mass/Vol] 107.0 pg/mL Normal <=900.0 [facility] Comment on above: Performed By: #### C MP, BNP, CMADM ####[facility] Xadgjjcpfl[address] [place] [address]Dr. Garima Pulliam CARDIAC NASH ADMITon 022 CK [Catalytic activity/Vol] 190 U/L Normal 39-308 [facility] Comment on above: Performed By: #### C MP, BNP, CMADM ####[facility] Hpwvpnkovj[address] [place] [address]Dr. Garima Heraclio CK.MB [Mass/Vol] 11.11 ng/mL Critically high <=3.60 Th [facility] Comment on above: Performed By: #### C MP, BNP, CMADM ####[facility] Qkoumqqphg[address] [place] [address]Dr. Garima Pulliam HSTROP 11.8 pg/mL Normal 4.0-76.1 [facility] Comment on above: Result Comment: CUT- OFF POINTS HAVE BEEN ESTABLISHED BASED ON THE FOURTH UNIVERSAL DEFINITIONS OF MYOCARDIALINFARCTION. THE UPPER REFERENCE LIMIT (URL) OF TROPONIN, DEFINED THE 99TH PERCENTILE OFcTnI DISTRIBUTION IN A REFERENCE POPULATION, HAS BEEN CONFIRMED THE DECISION THRESHOLDFOR CA DIAGNOSIS. Performed By: #### C MP, BNP, CMADM ####[facility] Evvlyktaan[address] [place] [address]Dr. Garima Pulliam DORIS 133 ng/mL Critically high 16-96 [facility] Comment on above: Performed By: #### C MP, BNP, CMADM ####[facility] Azhlclgbkt[address] [place] [address]Dr. Garima Heraclio CBC AUTO DIFFon 09-29-2022 BASO # 0.0 103/ul Normal 0.0-0.1 [facility] Comment on above: Performed By: #### C BC ####[facility] Wqxwqnuurq[address] [place] [address]Dr. Garima Heraclio Basophils/100 WBC (Bld) 0.2 % Normal 0.2-2.0 [facility] Comment on above: Performed By: #### C BC ####[facility] Uyzpdsorti8175 [place] [address]Dr. Garima Pulliam EO # 0.1 103/ul Normal 0.0-0.7 [facility] Comment on above: Performed By: #### C BC ####[facility] Dccxfackvm7859 [place] [address]Dr. Garima Pulliam Eosinophils/100 WBC (Bld) 1.4 % Normal 0.9-7.0 [facility] Comment on above: Performed By: #### C BC ####[facility] Cresnnqerv[address] [place], [place] [address]Dr. Garima Pulliam Erythrocyte distribution width (RBC) [Ratio] 13.7 % Normal 11.0-15.0 [facility] Comment on above: Performed By: #### C BC ####[facility] Ynofofxohf[address] [place], [place] [address]Dr. Garima Pulliam Hematocrit (Bld) [Volume fraction] 45.4 % Normal 42.0-54.0 [facility] Comment on above: Performed By: #### C BC ####[facility] Ebrgntcmeh[address] [place], [place] [address]Dr. Garima Pulliam Hemoglobin (Bld) [Mass/Vol] 14.8 g/dL Normal 14.0-18.0 [facility] Comment on above: Performed By: #### C BC ####[facility] [address]yv[address]azeec[address] [place], [place] [address]Dr. Garima Pulliam IG # 0.04 10e3/ul Critically high 0.00-0.03 [facility] Comment on above: Performed By: #### C BC ####[facility] K[address]qstaztrv[address] [place], [place] [address]Dr. Garima Pulliam IG % 0.5 % Normal 0.0-0.5 [facility] Comment on above: Performed By: #### C BC ####[facility] Jxzxnqopev[address] [place], [place] [address]Dr. Garima Pulliam LYMPH # 1.1 103/ul Critically low 1.2-3.8 [facility] Comment on above: Performed By: #### C BC ####[facility] Xtddgkqjbe1699 [place] [address]Dr. Garima Pulliam Lymphocytes/100 WBC (Bld) 12.7 % Critically low 20.5-60.0 [facility] Comment on above: Performed By: #### C BC ####[facility] Tnjxsvyvqj2611 [place] [address]Dr. Chapisrenu Pulliam MANUAL DIFF REQ NO Normal [facility] Comment on above: Performed By: #### C BC ####[facility] Yq[address]mmk[address] [place], [place] [address]Dr. Garima Heraclio MCH (RBC) [Entitic mass] 30.0 pg Normal 25.9-34.0 [facility] Comment on above: Performed By: #### C BC ####[facility] Xpcbnlrggf[address] [place], [place] [address]Dr. Garima Heraclio MCHC (RBC) [Mass/Vol] 32.6 g/dL Normal 29.9-35.2 [facility] Comment on above: Performed By: #### C BC ####[facility] Yvxsiakkxi[address] [place], [place] [address]Dr. Garima Heraclio MCV (RBC) [Entitic vol] 91.9 fL Normal 80.0-94.0 [facility] Comment on above: Performed By: #### C BC ####[facility] [address]nz[address] [place], [place] [address]Dr. Garima Pulliam MONO # 0.4 103/ul Normal 0.3-0.8 [facility] Comment on above: Performed By: #### C BC ####[facility] Ah[address]bv[address]as[address] [place], [place] [address]Dr. Chapisrenu Pulliam Monocytes/100 WBC (Bld) 4.8 % Normal 1.7-12.0 [facility] Comment on above: Performed By: #### C BC ####[facility] [address]fp[address] [place], [place] [address]Dr. Garima Pulliam NEUT # 7.1 103/ul Critically high 1.4-6.5 [facility] Comment on above: Performed By: #### C BC ####[facility] [address] [place], [place] [address]Dq. Garima Pulliam Neutrophils/100 WBC (Bld) 80.4 % Critically high 43.0-75.0 [facility] Comment on above: Performed By: #### C BC ####[facility] Hgvmgfhtzu1874 [place] [address]Dr. Garima Pulliam Platelet mean volume (Bld) [Entitic vol] 9.1 fL Critically low 9.5-13.5 [facility] Comment on above: Performed By: #### C BC ####[facility] Nsynwlqogd1311 [place] [address]Dr. Garima Pulliam PLT 200 103/ul Normal 150-450 [facility] Comment on above: Performed By: #### C BC ####[facility] Ksklvxcsih7282 [place] [address]Dr. Garima Pulliam RBC 4.94 106/ul Normal 4.70-6.10 [facility] Comment on above: Performed By: #### C BC ####[facility] Lxzoglrnfn9720 [place] [address]Dr. Garima Pulliam WBC 8.9 103/ul Normal 4.0-11.0 [facility] Comment on above: Performed By: #### C BC ####[facility] Yzkijexkgf6045 [place] [address]Dr. Garima Pulliam Covid-19 PCR (CVDTB)on SARS-CoV-2 (COVID-19) RNA MARIE+probe Ql (Unsp spec) Not detected Normal NOT DETECTED [facility] Comment on above: Result Comment: When [...] for this test is supported by the [place] of Health and Human Service's declaration that [...] be used). Performed By: #### C VDTBH ####[facility] Kozwpshtfx[address] [place] [address]Dr. Garima Pulliam LACTATE/LACTIC ACIDon 2021 Lactate [Moles/Vol] 1.7 mmol/L Normal 0.4-1.9 [facility] Comment on above: Performed By: #### L ACT ####[facility] [address]knfcfrk[address] [place], [place] [address]Dr. Garima Pulliam PROF 14(COMP METB)on 022 Albumin [Mass/Vol] 3.8 g/dL Normal 3.4-5.0 [facility] Comment on above: Performed By: #### C MP, BNP, CMADM ####[facility] L[address]slmmblta[address] [place], [place] [address]Dr. Garima Pulliam Albumin/Globulin [Mass ratio] 1.5 {ratio} Normal [facility] Comment on above: Performed By: #### C MP, BNP, CMADM ####[facility] Zeqywixrut[address] [place] [address]Dr. Garima Pulliam ALP [Catalytic activity/Vol] 62 U/L Normal 46-116 [facility] Comment on above: Performed By: #### C MP, BNP, CMADM ####[facility] Zjskuudhtx9451 [place] [address]Dr. Garima Pulliam ALT [Catalytic activity/Vol] 37 U/L Normal 16-63 [facility] Comment on above: Performed By: #### C MP, BNP, CMADM ####[facility] Iyrbdjrbyb4[address] [place] [address]Dr. Garima Pulliam Anion gap [Moles/Vol] 8.0 mmol/L Normal [facility] Comment on above: Performed By: #### C MP, BNP, CMADM ####[facility] Dihilzyzaw37[address] [place] [address]Dr. Garima Pulliam AST [Catalytic activity/Vol] 20 U/L Normal 15-37 [facility] Comment on above: Performed By: #### C MP, BNP, CMADM ####[facility] Flaqezcedn[address] [place] [address]Dr. Garima Pulliam Bilirubin [Mass/Vol] 0.6 mg/dL Normal 0.2-1.0 [facility] Comment on above: Performed By: #### C MP, BNP, CMADM ####[facility] Jdffozgltr8103 [place] [address]Dr. Garima Pulliam Calcium [Mass/Vol] 9.1 mg/dL Normal 8.5-10.1 [facility] Comment on above: Performed By: #### C MP, BNP, CMADM ####[facility] Tucxtitw[address] [place], [place] [address]Dr. Garima Pulliam Chloride [Moles/Vol] 103 mmol/L Normal 98-107 [facility] Comment on above: Performed By: #### C MP, BNP, CMADM ####[facility] Uizryuxpil[address] [place], [place] [address]Dr. Garima Pulliam CO2 [Moles/Vol] 31.8 mmol/L Normal 21.0-32.0 [facility] Comment on above: Performed By: #### C MP, BNP, CMADM ####[facility] Edbmwvcznc[address] [place], [place] [address]Dr. Garima Pulliam Creatinine [Mass/Vol] 0.63 mg/dL Critically low 0.70-1.30 [facility] Comment on above: Performed By: #### C MP, BNP, CMADM ####[facility] [address]mswcfurk[address] [place], [place] [address]Dr. Garima Pulliam EGFR-AF ECUADOREAN >60 Normal >=60 [facility] Comment on above: Performed By: #### C MP, BNP, CMADM ####[facility] Eshfjshkeg[address] [place], [place] [address]Dr. Garima Pulliam EGFR-NON AF ECUADOREAN >60 Normal >=60 [facility] Comment on above: Performed By: #### C MP, BNP, CMADM ####[facility] Jflatvckqx0207 [place] [address]Dr. Garima Pulliam Globulin (S) [Mass/Vol] 2.6 g/dL Normal [facility] Comment on above: Performed By: #### C MP, BNP, CMADM ####[facility] Rxrjnkdcsq8797 [place] [address]Dr. Garima Pulliam Glucose [Mass/Vol] 103 mg/dL Normal 74-106 [facility] Comment on above: Performed By: #### C MP, BNP, CMADM ####[facility] Hnnwlzibpo2966 [place] [address]Dr. Garima Pulliam Potassium [Moles/Vol] 3.8 mmol/L Normal 3.5-5.1 [facility] Comment on above: Performed By: #### C MP, BNP, CMADM ####[facility] Kgdgzsykth1483 [place] [address]Dr. Garima Pulliam Protein [Mass/Vol] 6.4 g/dL Normal 6.4-8.2 [facility] Comment on above: Performed By: #### C MP, BNP, CMADM ####[facility] Okfgsxvktc8[address] [place] [address]Dr. Garima Pulliam Sodium [Moles/Vol] 139 mmol/L Normal 136-145 [facility] Comment on above: Performed By: #### C MP, BNP, CMADM ####[facility] Jfozampppq4676 [place] [address]Dr. Garima Pulliam Urea nitrogen [Mass/Vol] 7.0 mg/dL Normal 7.0-18.0 [facility] Comment on above: Performed By: #### C MP, BNP, CMADM ####[facility] Csvpmcgogw49[address] [place] [address]Dr. Garima Pulliam Urea nitrogen/Creatinine [Mass ratio] 11.1 mg/mg Normal [facility] Comment on above: Performed By: #### C MP, BNP, CMADM ####[facility] Xpgdwsmrfn4736 [place] [address]Dr. Garima Pulliam PROTIMEon 09-29-2022 INR Coag (PPP) [Relative time] 1.14 {INR} Normal [facility] Comment on above: Performed By: #### P T, PTT ####[facility] [address]wwxxt[address] [place], [place] [address]Dr. Garima Pulliam INR GUIDELINES SEE BELOW Normal [facility] Comment on above: Result Comment: WESLEY RED INR: 2.0 - 3.0 CONDITIONS NOT LISTED BELOW 2.5 - 3.5 FOR PROSTHETIC HEART VALVE REPLACEMENT 2.5 - 3.5 RECURRENT THROMBOSIS Performed By: #### P T, PTT ####[facility] [address]fl[address]rxvu[address] [place], [place] [address]Dr. Garima Pulliam PT Coag (PPP) [Time] 12.2 s Critically high 9.0-11.6 [facility] Comment on above: Performed By: #### P T, PTT ####[facility] Fwyismugse[address] [place], [place] [address]Dr. Garima Pulliam PTTon 09-29-2022 aPTT Coag (Bld) [Time] 29.3 s Normal 22.3-36.2 [facility] [facility] Comment on above: Performed By: #### P T, PTT ####[facility] Eegyzveiv[address] [place], [place] [address]Dr. Garima Pulliam XR CHEST 1 Von 09-29-2022 XR CHEST 1 V Normal [facility] CBC AUTO DIFFon 09-26-2022 BASO # 0.0 103/ul Normal 0.0-0.1 [facility] Comment on above: Performed By: #### C BC ####[facility] Vinjlrurrd[address] [place], [place] [address]Dr. Garima Pulliam Basophils/100 WBC (Bld) 0.2 % Normal 0.2-2.0 [facility] Comment on above: Performed By: #### C BC ####[facility] Ecjzeyvkef[address] [place], [place] [address]Dr. Garima Pulliam EO # 0.1 103/ul Normal 0.0-0.7 [facility] Comment on above: Performed By: #### C BC ####[facility] Cenuchsncc[address] [place], [place] [address]Dr. Garima Pulliam Eosinophils/100 WBC (Bld) 1.0 % Normal 0.9-7.0 [facility] Comment on above: Performed By: #### C BC ####[facility] Ayitsaorjh[address] [place], [place] [address]Dr. Garima Pulliam Erythrocyte distribution width (RBC) [Ratio] 13.4 % Normal 11.0-15.0 [facility] Comment on above: Performed By: #### C BC ####[facility] Zqbnmcjnlw[address] [place], [place] [address]Dr. Garima Pulliam Hematocrit (Bld) [Volume fraction] 46.3 % Normal 42.0-54.0 [facility] Comment on above: Performed By: #### C BC ####[facility] Eemyrtepak[address] [place], [place] [address]Dr. Garima Pulliam Hemoglobin (Bld) [Mass/Vol] 15.3 g/dL Normal 14.0-18.0 [facility] Comment on above: Performed By: #### C BC ####[facility] Hibmpjdefe[address] [place], [place] [address]Dr. Garima Pulliam IG # 0.05 10e3/ul Critically high 0.00-0.03 [facility] Comment on above: Performed By: #### C BC ####[facility] Wqocfwmqfk6[address] [place], [place] [address]Dr. Garima Pulliam IG % 0.4 % Normal 0.0-0.5 [facility] Comment on above: Performed By: #### C BC ####[facility] Noxxfmoyjr[address] [place], [place] [address]Dr. Garima Pulliam LYMPH # 1.7 103/ul Normal 1.2-3.8 [facility] Comment on above: Performed By: #### C BC ####[facility] Cgwktnzyhb[address] [place], [place] [address]Dr. Garima Pulliam Lymphocytes/100 WBC (Bld) 12.7 % Critically low 20.5-60.0 [facility] Comment on above: Performed By: #### C BC ####[facility] Giynfinsem[address] [place] [address]DrAdalberto Pulliam MANUAL DIFF REQ NO Normal [facility] Comment on above: Performed By: #### C BC ####[facility] Cvyvtiomak[address] [place] [address]Dr. Garima Pulliam MCH (RBC) [Entitic mass] 30.1 pg Normal 25.9-34.0 [facility] Comment on above: Performed By: #### C BC ####[facility] Errbpolxpl[address] [place], [place] [address]Dr. Garima Pulliam MCHC (RBC) [Mass/Vol] 33.0 g/dL Normal 29.9-35.2 [facility] Comment on above: Performed By: #### C BC ####[facility] Ooulyxzqdw[address] [place], [place] [address]DrAdalberto Pulliam MCV (RBC) [Entitic vol] 91.1 fL Normal 80.0-94.0 [facility] Comment on above: Performed By: #### C BC ####[facility] Mioitgstko[address] [place], [place] [address]DrAdalberto Pulliam MONO # 0.9 103/ul Critically high 0.3-0.8 The [facility] Comment on above: Performed By: #### C BC ####[facility] Niztufpbqn314[address] [place], [place] [address]DrAdalberto Pulliam Monocytes/100 WBC (Bld) 7.0 % Normal 1.7-12.0 [facility] Comment on above: Performed By: #### C BC ####[facility] Citymnhvwj7[address] [place], [place] [address]DrAdalberto Pulliam NEUT # 10.4 103/ul Critically high 1.4-6.5 The [facility] Comment on above: Performed By: #### C BC ####[facility] Qjjlynzsmw98[address] [place], [place] [address]DrAdalberto Pulliam Neutrophils/100 WBC (Bld) 78.7 % Critically high 43.0-75.0 [facility] Comment on above: Performed By: #### C BC ####[facility] Qfjrepnzpk[address] [place] [address]Dr. Garima Pulliam Platelet mean volume (Bld) [Entitic vol] 8.9 fL Critically low 9.5-13.5 [facility] Comment on above: Performed By: #### C BC ####[facility] [address]fkl[address]eg[address] [place] [address]Dr. Garima Pulliam PLT 195 103/ul Normal 150-450 [facility] Comment on above: Performed By: #### C BC ####[facility] Xxchockfeh[address] [place], [place] [address]Dr. Garima Pulliam RBC 5.08 106/ul Normal 4.70-6.10 [facility] Comment on above: Performed By: #### C BC ####[facility] Ontkkdlilv[address] [place], [place] [address]Dr. Garima Pulliam WBC 13.2 103/ul Critically high 4.0-11.0 The [facility] Comment on above: Performed By: #### C BC ####[facility] Rkqvswfxis[address] [place], [place] [address]Dr. Garima Pulliam PROF 14(COMP METB)on 022 Albumin [Mass/Vol] 3.5 g/dL Normal 3.4-5.0 [facility] Comment on above: Performed By: #### C DAVID HSTROPN ####[facility] F[address]th[address] [place] [address]Dr. Garima Pulliam Albumin/Globulin [Mass ratio] 1.2 {ratio} Normal [facility] Comment on above: Performed By: #### C RAFAT HERNANDEZTROPN ####[facility] [address]ms[address]ke[address] [place] [address]Dr. Garima Pulliam ALP [Catalytic activity/Vol] 71 U/L Normal 46-116 [facility] Comment on above: Performed By: #### C DAVDI HSTROPN ####[facility] Thrpugeraj[address] [place] [address]Dr. Garima Pulliam ALT [Catalytic activity/Vol] 37 U/L Normal 16-63 [facility] Comment on above: Performed By: #### C DAVID, HSTROPN ####[facility] Efcnfzjouh[address] [place] [address]Dr. Garima Pulliam Anion gap [Moles/Vol] 4.8 mmol/L Normal [facility] Comment on above: Performed By: #### C DAVID, HSTROPN ####[facility] [address]nqzwvnb[address] [place], [place] [address]Dr. Garima Pulliam AST [Catalytic activity/Vol] 21 U/L Normal 15-37 [facility] Comment on above: Performed By: #### C DAVID, HSTROPN ####[facility] Ibdnegpvru8[address] [place], [place] [address]Dr. Garima Pulliam Bilirubin [Mass/Vol] 0.3 mg/dL Normal 0.2-1.0 [facility] Comment on above: Performed By: #### C DAVID, HSTROPN ####[facility] Y[address]mqetkij[address] [place] [address]Dr. Garima Pulliam Calcium [Mass/Vol] 8.9 mg/dL Normal 8.5-10.1 [facility] Comment on above: Performed By: #### C DAVID, HSTROPN ####[facility] [address]wnjxud[address] [place] [address]Dr. Garima Pulliam Chloride [Moles/Vol] 106 mmol/L Normal 98-107 [facility] Comment on above: Performed By: #### C DAVID, HSTROPN ####[facility] Ymccrfshft[address] [place] [address]Dr. Garima Pulliam CO2 [Moles/Vol] 29.8 mmol/L Normal 21.0-32.0 The [facility] Comment on above: Performed By: #### C DAVID, HSTROPN ####[facility] Awpscjkyvi[address] [place] [address]Dr. Garima Pulliam Creatinine [Mass/Vol] 0.68 mg/dL Critically low 0.70-1.30 The [facility] Comment on above: Performed By: #### C MP, HSTROPN ####[facility] [address]rndqrd[address] [place] [address]Dr. Garima Pulliam EGFR-AF ECUADOREAN >60 Normal >=60 [facility] Comment on above: Performed By: #### C MP, HSTROPN ####[facility] [address]sfmeoqnun[address] [place] [address]Dr. Chapislan Pulliam EGFR-NON AF ECUADOREAN >60 Normal >=60 [facility] Comment on above: Performed By: #### C MP, HSTROPN ####[facility] Fzmiurasjg[address] [place] [address]Dr. Garima Pulliam Globulin (S) [Mass/Vol] 2.8 g/dL Normal [facility] Comment on above: Performed By: #### C MP, HSTROPN ####[facility] Nkcwsmziio[address] [place] [address]Dr. Garima Pulliam Glucose [Mass/Vol] 133 mg/dL Critically high 74-106 [facility] Comment on above: Performed By: #### C MP, HSTROPN ####[facility] T[address]fhyrmgr[address] [place] [address]Dr. Chapisrenu Pulliam Potassium [Moles/Vol] 3.6 mmol/L Normal 3.5-5.1 [facility] Comment on above: Performed By: #### C MP, HSTROPN ####[facility] [address]wscalq[address] [place] [address]Dr. Chapisrenu Pulliam Protein [Mass/Vol] 6.3 g/dL Critically low 6.4-8.2 Th [facility] Comment on above: Performed By: #### C MP, HSTROPN ####[facility] Jmhvtqpehg[address] [place], [place] [address]Dr. Chapisrenu Pulliam Sodium [Moles/Vol] 137 mmol/L Normal 136-145 [facility] Comment on above: Performed By: #### C MP, HSTROPN ####[facility] Aemmaptkcn[address] [place], [place] [address]Dr. Garima Pulliam Urea nitrogen [Mass/Vol] 15.0 mg/dL Normal 7.0-18.0 [facility] Comment on above: Performed By: #### C DAVID HSTROPN ####[facility] [address]zzykvd[address] [place] [address]Dr. Chapisrenu Pulliam Urea nitrogen/Creatinine [Mass ratio] 22.1 mg/mg Normal [facility] Comment on above: Performed By: #### C DAVID HSTROPN ####[facility] Ytxd[address]obxk[address] [place] [address]Dr. Garima Heraclio TROPONIN, HIGH SENSITIVITYon 09-26-2022 HSTROP 12.8 pg/mL Normal 4.0-76.1 [facility] Comment on above: Result Comment: CUT- OFF POINTS HAVE BEEN ESTABLISHED BASED ON THE FOURTH UNIVERSAL DEFINITIONS OF MYOCARDIALINFARCTION. THE UPPER REFERENCE LIMIT (URL) OF TROPONIN, DEFINED THE 99TH PERCENTILE OFcTnI DISTRIBUTION IN A REFERENCE POPULATION, HAS BEEN CONFIRMED THE DECISION THRESHOLDFOR CA DIAGNOSIS. Performed By: #### C DAVID HSTROPN ####[facility] [address] [place] [address]Dr. Chapisrenu Pulliam XR CHEST 1 Von 09-26-2022 XR CHEST 1 V Normal [facility] XR CHEST 1 Von 09-16-2022 XR CHEST 1 V Normal [facility] CBC AUTO DIFFon 09-15-2022 BASO # 0.0 103/ul Normal 0.0-0.1 [facility] Comment on above: Performed By: #### C BC ####[facility] [address] [place] [address]Dr. Garima Heraclio Basophils/100 WBC (Bld) 0.1 % Critically low 0.2-2.0 [facility] Comment on above: Performed By: #### C BC ####[facility] Fyesuyiwwp[address] [place] [address]Dr. Garima Pulliam EO # 0.0 103/ul Normal 0.0-0.7 [facility] Comment on above: Performed By: #### C BC ####[facility] Tbcfvvbaez6[address] [place] [address]Dr. Garima Pulliam Eosinophils/100 WBC (Bld) 0.1 % Critically low 0.9-7.0 [facility] Comment on above: Performed By: #### C BC ####[facility] [address]jzwnrdu[address] [place] [address]Dr. Garima Pulliam Erythrocyte distribution width (RBC) [Ratio] 14.1 % Normal 11.0-15.0 [facility] Comment on above: Performed By: #### C BC ####[facility] Pfsijihpqo4[address] [place], [place] [address]Dr. Garima Pulliam Hematocrit (Bld) [Volume fraction] 46.1 % Normal 42.0-54.0 [facility] Comment on above: Performed By: #### C BC ####[facility] Xv[address]fgqcbn[address] [place], [place] [address]Dr. Garima Pulliam Hemoglobin (Bld) [Mass/Vol] 15.0 g/dL Normal 14.0-18.0 [facility] Comment on above: Performed By: #### C BC ####[facility] R[address]vrrcoed[address] [place], [place] [address]Dr. Garima Pulliam IG # 0.03 10e3/ul Normal 0.00-0.03 [facility] Comment on above: Performed By: #### C BC ####[facility] Z[address]wvxnvgv[address] [place], [place] [address]Dr. Garima Pulliam IG % 0.3 % Normal 0.0-0.5 [facility] Comment on above: Performed By: #### C BC ####[facility] [address]rmrmwd[address] [place], [place] [address]Dr. Garima Pulliam LYMPH # 0.6 103/ul Critically low 1.2-3.8 The [facility] Comment on above: Performed By: #### C BC ####[facility] F[address]upxfu[address] [place], [place] [address]Dr. Garima Pulliam Lymphocytes/100 WBC (Bld) 5.8 % Critically low 20.5-60.0 [facility] Comment on above: Performed By: #### C BC ####[facility] [address] [place] [id number]. Garima Pulliam MANUAL DIFF REQ NO Normal [facility] Comment on above: Performed By: #### C BC ####[facility] [address]elfoddxgq8076 [place] [address]Dr. Garima Pulliam MCH (RBC) [Entitic mass] 30.2 pg Normal 25.9-34.0 [facility] Comment on above: Performed By: #### C BC ####[facility] Chmlaogstd[address] [place] [address]Dr. Garima Pulliam MCHC (RBC) [Mass/Vol] 32.5 g/dL Normal 29.9-35.2 [facility] Comment on above: Performed By: #### C BC ####[facility] [address]af[address]zqrap[address] [place] [address]Dr. Garima Pulliam MCV (RBC) [Entitic vol] 92.8 fL Normal 80.0-94.0 [facility] Comment on above: Performed By: #### C BC ####[facility] [address]atskapaqx[address] [place] [address]Dr. Garima Heraclio MONO # 0.3 103/ul Normal 0.3-0.8 [facility] Comment on above: Performed By: #### C BC ####[facility] Wiehxtuyru[address] [place] [address]22[address]Dr. Garima Heraclio Monocytes/100 WBC (Bld) 3.2 % Normal 1.7-12.0 [facility] Comment on above: Performed By: #### C BC ####[facility] Ixdmhfeihx1139 [place] [address]22[address]Dr. Garima Pulliam NEUT # 9.8 103/ul Critically high 1.4-6.5 [facility] Comment on above: Performed By: #### C BC ####[facility] Wmhbzrjbzl7322 [place] [address]Dr. Garima Pulliam Neutrophils/100 WBC (Bld) 90.5 % Critically high 43.0-75.0 [facility] Comment on above: Performed By: #### C BC ####[facility] Ejdujodbbd70[address] [place] [address]Dr. Garima Pulliam Platelet mean volume (Bld) [Entitic vol] 9.4 fL Critically low 9.5-13.5 [facility] Comment on above: Performed By: #### C BC ####[facility] [address]wvpx[address] [place] [address]Dr. Garima Pulliam PLT 208 103/ul Normal 150-450 [facility] Comment on above: Performed By: #### C BC ####[facility] T[address]wawvvyv[address] [place] [address]Dr. Garima Pulliam RBC 4.97 106/ul Normal 4.70-6.10 [facility] Comment on above: Performed By: #### C BC ####[facility] Ujugmxrrzt[address] [place] [address]Dr. Garima Pulliam WBC 10.8 103/ul Normal 4.0-11.0 [facility] Comment on above: Performed By: #### C BC ####[facility] Ypomyizlty[address] [place] [address]Dr. Garima Pulliam PROF 14(COMP METB)on 022 Albumin [Mass/Vol] 4.0 g/dL Normal 3.4-5.0 [facility] Comment on above: Performed By: #### C MP ####[facility] [address]odhmtxgn[address] [place] [address]Dr. Garima Pulliam Albumin/Globulin [Mass ratio] 1.5 {ratio} Normal [facility] Comment on above: Performed By: #### C MP ####[facility] Lnovtfkiil4923 [place] [address]Dr. Garima Pulliam ALP [Catalytic activity/Vol] 73 U/L Normal 46-116 [facility] Comment on above: Performed By: #### C MP ####[facility] Kkeepiixwd5684 [place] [address]Dr. Garima Pulliam ALT [Catalytic activity/Vol] 42 U/L Normal 16-63 [facility] Comment on above: Performed By: #### C MP ####[facility] Uwsvqgahxa19[address] [place] [address]Dr. Garima Pulliam Anion gap [Moles/Vol] 9.1 mmol/L Normal [facility] Comment on above: Performed By: #### C MP ####[facility] [address]tx[address]wwyj[address] [place], [place] [address]Dr. Garima Pulliam AST [Catalytic activity/Vol] 28 U/L Normal 15-37 [facility] Comment on above: Performed By: #### C MP ####[facility] Pxeuooorlz[address] [place], [place] [address]Dr. Garima Pulliam Bilirubin [Mass/Vol] 0.6 mg/dL Normal 0.2-1.0 [facility] Comment on above: Performed By: #### C MP ####[facility] Lbjkqwlxpl[address] [place], [place] [address]Dr. Garima Pulliam Calcium [Mass/Vol] 8.6 mg/dL Normal 8.5-10.1 The [facility] Comment on above: Performed By: #### C MP ####[facility] Zwpsolzihc[address] [place], [place] [address]Dr. Garima Pulliam Chloride [Moles/Vol] 105 mmol/L Normal 98-107 [facility] Comment on above: Performed By: #### C MP ####[facility] Bmwtnewkth[address] [place], [place] [address]Dr. Garima Pulliam CO2 [Moles/Vol] 28.5 mmol/L Normal 21.0-32.0 The [facility] Comment on above: Performed By: #### C MP ####[facility] Fmavoqvmfo[address] [place], [place] [address]Dr. Garima Heraclio Creatinine [Mass/Vol] 0.78 mg/dL Normal 0.70-1.30 [facility] Comment on above: Performed By: #### C MP ####[facility] Ncuavonpsn[address] [place], [place] [address]Dr. Chapisrenu Heraclio EGFR-AF ECUADOREAN >60 Normal >=60 [facility] Comment on above: Performed By: #### C MP ####[facility] R[address]qvgdhrf[address] [place], [place] [address]Dr. Garima Pulliam EGFR-NON AF ECUADOREAN >60 Normal >=60 [facility] Comment on above: Performed By: #### C MP ####[facility] Dsarodwlrv0706 [place] [address]Dr. Garima Pulliam Globulin (S) [Mass/Vol] 2.7 g/dL Normal [facility] Comment on above: Performed By: #### C MP ####[facility] Rbcxjdmpqw6059 [place] [address]Dr. Garima Pulliam Glucose [Mass/Vol] 220 mg/dL Critically high 74-106 [facility] Comment on above: Performed By: #### C MP ####[facility] Nnyvwuabxh4514 [place] [address]Dr. Garima Pulliam Potassium [Moles/Vol] 3.6 mmol/L Normal 3.5-5.1 [facility] Comment on above: Performed By: #### C MP ####[facility] Xoclcpehmk[address] [place], [place] [address]Dr. Garima Pulliam Protein [Mass/Vol] 6.7 g/dL Normal 6.4-8.2 [facility] Comment on above: Performed By: #### C MP ####[facility] [address]jkwafgr[address] [place], [place] [address]Dr. Garima Pulliam Sodium [Moles/Vol] 139 mmol/L Normal 136-145 [facility] Comment on above: Performed By: #### C MP ####[facility] Hwbujdyyaj[address] [place], [place] [address]Dr. Garima Pulliam Urea nitrogen [Mass/Vol] 11.0 mg/dL Normal 7.0-18.0 [facility] Comment on above: Performed By: #### C MP ####[facility] Yejfettzbw[address] [place], [place] [address]Dr. Garima Pulliam Urea nitrogen/Creatinine [Mass ratio] 14.1 mg/mg Normal [facility] Comment on above: Performed By: #### C MP ####[facility] [address]bsjjbeuag[address] [place], [place] [address]Dr. Garima Pulliam CARDIAC NASH 3-6on 2 CK [Catalytic activity/Vol] 240 U/L Normal 39-308 [facility] Comment on above: Performed By: #### C MREP ####[facility] [address]wbattjf[address] [place] [address]Dr. Garima Pulliam CK.MB [Mass/Vol] 10.38 ng/mL Critically high <=3.60 Th [facility] Comment on above: Performed By: #### C MREP ####[facility] Lndthpsquk35[address] [place] [address]Dr. Garima Pulliam HSTROP 18.5 pg/mL Normal 4.0-76.1 [facility] Comment on above: Result Comment: CUT- OFF POINTS HAVE BEEN ESTABLISHED BASED ON THE FOURTH UNIVERSAL DEFINITIONS OF MYOCARDIALINFARCTION. THE UPPER REFERENCE LIMIT (URL) OF TROPONIN, DEFINED THE 99TH PERCENTILE OFcTnI DISTRIBUTION IN A REFERENCE POPULATION, HAS BEEN CONFIRMED THE DECISION THRESHOLDFOR CA DIAGNOSIS. Performed By: #### C MREP ####[facility] Xjexkfdkah[address] [place] [address]Dr. Garima Pulliam CK [Catalytic activity/Vol] 257 U/L Normal 39-308 [facility] Comment on above: Performed By: #### C MREP ####[facility] [address]kowwatz[address] [place], [place] [address]Dr. Garima Pulliam CK.MB [Mass/Vol] 9.89 ng/mL Critically high <=3.60 [facility] Comment on above: Performed By: #### C MREP ####[facility] Bhjxycmchn262[address] [place], [place] [address]Dr. Garima Pulliam HSTROP 16.9 pg/mL Normal 4.0-76.1 [facility] Comment on above: Result Comment: CUT- OFF POINTS HAVE BEEN ESTABLISHED BASED ON THE FOURTH UNIVERSAL DEFINITIONS OF MYOCARDIALINFARCTION. THE UPPER REFERENCE LIMIT (URL) OF TROPONIN, DEFINED THE 99TH PERCENTILE OFcTnI DISTRIBUTION IN A REFERENCE POPULATION, HAS BEEN CONFIRMED THE DECISION THRESHOLDFOR CA DIAGNOSIS. Performed By: #### C MREP ####[facility] [address]uzvmlmxkr[address] [place] [address]Dr. Garima Heraclio CBC AUTO DIFFon 10-22-2022 BASO # 0.0 103/ul Normal 0.0-0.1 [facility] Comment on above: Performed By: #### C BC ####[facility] Ccfszbeeih8322 [place] [id number]. Garima Pulliam Basophils/100 WBC (Bld) 0.1 % Critically low 0.2-2.0 [facility] Comment on above: Performed By: #### C BC ####[facility] Ssvqalwspi8272 [place] [address]Dr. Garima Pulliam EO # 0.0 103/ul Normal 0.0-0.7 [facility] Comment on above: Performed By: #### C BC ####[facility] Aalytyifnk[address] [place], [place] [address]Dr. Chapisrenu Heraclio Eosinophils/100 WBC (Bld) 0.0 % Critically low 0.9-7.0 [facility] Comment on above: Performed By: #### C BC ####[facility] Nqkuuxjjyy[address] [place], [place] [address]Dr. Garima Pulliam Erythrocyte distribution width (RBC) [Ratio] 13.6 % Normal 11.0-15.0 [facility] Comment on above: Performed By: #### C BC ####[facility] Kdcrwwcggh[address] [place], [place] [address]Dr. Garima Pulliam Hematocrit (Bld) [Volume fraction] 48.2 % Normal 42.0-54.0 [facility] Comment on above: Performed By: #### C BC ####[facility] [address]kzvgcyga[address] [place], [place] [address]Dr. Garima Pulliam Hemoglobin (Bld) [Mass/Vol] 16.0 g/dL Normal 14.0-18.0 [facility] Comment on above: Performed By: #### C BC ####[facility] Oosatfqzrk[address] [place], [place] [address]Dr. Chapisrenu Heraclio IG # 0.02 10e3/ul Normal 0.00-0.03 [facility] Comment on above: Performed By: #### C BC ####[facility] Ooofbhpbkb3775 [place] [id number]. Garima Pulliam IG % 0.3 % Normal 0.0-0.5 [facility] Comment on above: Performed By: #### C BC ####[facility] [address]zwxarlzfc[address] [place] [address]Dr. Garima Heraclio LYMPH # 0.5 103/ul Critically low 1.2-3.8 The [facility] Comment on above: Performed By: #### C BC ####[facility] [address]frhteqnyy[address] [place] [address]Dr. Garima Heraclio Lymphocytes/100 WBC (Bld) 7.7 % Critically low 20.5-60.0 [facility] Comment on above: Performed By: #### C BC ####[facility] E[address] [place], [place] [address]Dr. Chapisrenu Pulliam MANUAL DIFF REQ NO Normal The [facility] Comment on above: Performed By: #### C BC ####[facility] [address] [place], [place] [address]Dr. Garima Heraclio MCH (RBC) [Entitic mass] 30.6 pg Normal 25.9-34.0 [facility] Comment on above: Performed By: #### C BC ####[facility] [address] [place], [place] [address]Dr. Garima Pulliam MCHC (RBC) [Mass/Vol] 33.2 g/dL Normal 29.9-35.2 [facility] Comment on above: Performed By: #### C BC ####[facility] [address] [place], [place] [address]Dr. Garima Heraclio MCV (RBC) [Entitic vol] 92.2 fL Normal 80.0-94.0 [facility] Comment on above: Performed By: #### C BC ####[facility] M[address] [place], [place] [address]Dr. Garima Pulliam MONO # 0.0 103/ul Critically low 0.3-0.8 The [facility] Comment on above: Performed By: #### C BC ####[facility] [address] [place] [address]Dr. Garima Pulliam Monocytes/100 WBC (Bld) 0.4 % Critically low 1.7-12.0 [facility] Comment on above: Performed By: #### C BC ####[facility] Dwccfe[address]mf[address] [place] [address]Dr. Garima Pulliam NEUT # 6.2 103/ul Normal 1.4-6.5 [facility] Comment on above: Performed By: #### C BC ####[facility] [address] [place] [address]Dr. Garima Pulliam Neutrophils/100 WBC (Bld) 91.5 % Critically high 43.0-75.0 [facility] Comment on above: Performed By: #### C BC ####[facility] [address] [place] [address]Dr. Garima Pulliam Platelet mean volume (Bld) [Entitic vol] 8.7 fL Critically low 9.5-13.5 [facility] Comment on above: Performed By: #### C BC ####[facility] [address]xlfhxnis[address] [place] [address]Dr. Garima Pulliam PLT 179 103/ul Normal 150-450 [facility] Comment on above: Performed By: #### C BC ####[facility] Pbflxtqhxt[address] [place] [address]Dr. Garima Pulliam RBC 5.23 106/ul Normal 4.70-6.10 [facility] Comment on above: Performed By: #### C BC ####[facility] [address] [place] [address]Dr. Garima Pulliam WBC 6.7 103/ul Normal 4.0-11.0 [facility] Comment on above: Performed By: #### C BC ####[facility] [address]tyr[address] [place] [address]Dr. Garima Pulliam PROF CHEM 8 (BAS METB)on Anion gap [Moles/Vol] 12.1 mmol/L Normal Th [facility] Comment on above: Performed By: #### B MP ####[facility] [address] [place] [address]Dr. Garima Pulliam Calcium [Mass/Vol] 8.7 mg/dL Normal 8.5-10.1 The [facility] Comment on above: Performed By: #### B MP ####[facility] U[address]vuilwi[address] [place] [address]Dr. Garima Pulliam Chloride [Moles/Vol] 105 mmol/L Normal 98-107 [facility] Comment on above: Performed By: #### B MP ####[facility] Qycnlvzmxh5516 [place] [address]Dr. Garima Pulliam CO2 [Moles/Vol] 25.5 mmol/L Normal 21.0-32.0 The [facility] Comment on above: Performed By: #### B MP ####[facility] [address]we[address]tri[address] [place] [address]Dr. Garima Pulliam Creatinine [Mass/Vol] 0.63 mg/dL Critically low 0.70-1.30 [facility] Comment on above: Performed By: #### B MP ####[facility] [address]bre[address]xq[address] [place] [address]Dr. Garima Pulliam EGFR-AF ECUADOREAN >60 Normal >=60 The [facility] Comment on above: Performed By: #### B MP ####[facility] Hxakxdimib4276 [place] [address]Dr. Garima Pulliam EGFR-NON AF ECUADOREAN >60 Normal >=60 [facility] Comment on above: Performed By: #### B MP ####[facility] Aigbwtvbiw16[address] [place] [address]Dr. Garima Pulliam Glucose [Mass/Vol] 162 mg/dL Critically high 74-106 [facility] Comment on above: Performed By: #### B MP ####[facility] S[address] [place], [place] [address]Dr. Garima Pulliam Potassium [Moles/Vol] 3.6 mmol/L Normal 3.5-5.1 [facility] Comment on above: Performed By: #### B MP ####[facility] [address] [place], [place] [address]Dr. Garima Pulliam Sodium [Moles/Vol] 139 mmol/L Normal 136-145 [facility] Comment on above: Performed By: #### B DAVID ####[facility] Wemmgjdode[address] [place] [address]Dr. Garima Pulliam Urea nitrogen [Mass/Vol] 9.0 mg/dL Normal 7.0-18.0 [facility] Comment on above: Performed By: #### B DAVID ####[facility] [address]wtluogqbs4[address] [place] [address]Dr. Garima Pulliam Urea nitrogen/Creatinine [Mass ratio] 14.3 mg/mg Normal [facility] Comment on above: Performed By: #### B DAVID ####[facility] Hvsaxbxzzb42[address] [place] [address]Dr. Chapisrenu Pulliam CARDIAC NASH ADMITon 09-12- 022 CK [Catalytic activity/Vol] 304 U/L Normal 39-308 [facility] Comment on above: Performed By: #### B NANCY HERNANDEZ ####[facility] [address]bhmxd[address] [place] [address]Dr. Garima Pulliam CK.MB [Mass/Vol] 11.81 ng/mL Critically high <=3.60 Th [facility] Comment on above: Performed By: #### B NANCY HERNANDEZ ####[facility] Oiglxoptup[address] [place] [address]Dr. Garima Heraclio HSTROP 13.3 pg/mL Normal 4.0-76.1 [facility] Comment on above: Result Comment: CUT- OFF POINTS HAVE BEEN ESTABLISHED BASED ON THE FOURTH UNIVERSAL DEFINITIONS OF MYOCARDIALINFARCTION. THE UPPER REFERENCE LIMIT (URL) OF TROPONIN, DEFINED THE 99TH PERCENTILE OFcTnI DISTRIBUTION IN A REFERENCE POPULATION, HAS BEEN CONFIRMED THE DECISION THRESHOLDFOR CA DIAGNOSIS. Performed By: #### B NANCY HERNANDEZ ####[facility] Bzoissnlfq01[address] [place] [address]Dr. Garima Pulliam DORIS 133 ng/mL Critically high 16-96 [facility] Comment on above: Performed By: #### B NANCY HERNANDEZ ####[facility] Junmbqlmee[address] [place] [address]Dr. Garima Pulliam CBC AUTO DIFFon 09-12-2022 BASO # 0.0 103/ul Normal 0.0-0.1 [facility] Comment on above: Performed By: #### C BC ####[facility] [address] [place], [place] [address]Dr. Garima Heraclio Basophils/100 WBC (Bld) 0.2 % Normal 0.2-2.0 [facility] Comment on above: Performed By: #### C BC ####[facility] Pql[address]ty[address] [place], [place] [address]Dr. Garima Heraclio EO # 0.2 103/ul Normal 0.0-0.7 [facility] Comment on above: Performed By: #### C BC ####[facility] [address]wyjmi[address] [place], [place] [address]Dr. Chapisrenu Pulliam Eosinophils/100 WBC (Bld) 1.3 % Normal 0.9-7.0 [facility] Comment on above: Performed By: #### C BC ####[facility] [address] [place], [place] [address]Dr. Garima Pulliam Erythrocyte distribution width (RBC) [Ratio] 13.7 % Normal 11.0-15.0 [facility] Comment on above: Performed By: #### C BC ####[facility] N[address]ffmuz[address] [place], [place] [address]Dr. Garima Pulliam Hematocrit (Bld) [Volume fraction] 46.4 % Normal 42.0-54.0 [facility] Comment on above: Performed By: #### C BC ####[facility] [address] [place], [place] [address]Dr. Garima Pulliam Hemoglobin (Bld) [Mass/Vol] 15.7 g/dL Normal 14.0-18.0 [facility] Comment on above: Performed By: #### C BC ####[facility] Kwx[address]jub[address] [place], [place] [address]Dr. Garima Pulliam IG # 0.04 10e3/ul Critically high 0.00-0.03 [facility] Comment on above: Performed By: #### C BC ####[facility] Pxxdqjrcyj6452 [place] [address]Dr. Garima Pulliam IG % 0.3 % Normal 0.0-0.5 [facility] Comment on above: Performed By: #### C BC ####[facility] Qcvvlvftvd3574 [place] [address]Dr. Garima Pulliam LYMPH # 1.7 103/ul Normal 1.2-3.8 [facility] Comment on above: Performed By: #### C BC ####[facility] Asdehzkcic4278 [place] [address]Dr. Garima Pulliam Lymphocytes/100 WBC (Bld) 11.5 % Critically low 20.5-60.0 [facility] Comment on above: Performed By: #### C BC ####[facility] Qxrdpfijqc7117 [place] [address]Dr. Garima Pulliam MANUAL DIFF REQ NO Normal [facility] Comment on above: Performed By: #### C BC ####[facility] Ymawnyvpgv3433 [place] [address]Dr. Garima Pulliam MCH (RBC) [Entitic mass] 31.0 pg Normal 25.9-34.0 [facility] Comment on above: Performed By: #### C BC ####[facility] Mtwhboqhvj9[address] [place] [address]Dr. Garima Pulliam MCHC (RBC) [Mass/Vol] 33.8 g/dL Normal 29.9-35.2 [facility] Comment on above: Performed By: #### C BC ####[facility] Urjihgvouq2614 [place] [address]Dr. Garima Pulliam MCV (RBC) [Entitic vol] 91.7 fL Normal 80.0-94.0 [facility] Comment on above: Performed By: #### C BC ####[facility] Wjnlqrvwtk2086 [place] [address]Dr. aGrima Heraclio MONO # 0.8 103/ul Normal 0.3-0.8 [facility] Comment on above: Performed By: #### C BC ####[facility] Yueenfjeli[address] [place] [address]Dr. Garima Pulliam Monocytes/100 WBC (Bld) 5.2 % Normal 1.7-12.0 [facility] Comment on above: Performed By: #### C BC ####[facility] Guufpljdrp4750 [place] [address]Dr. Garima Pulliam NEUT # 11.7 103/ul Critically high 1.4-6.5 [facility] Comment on above: Performed By: #### C BC ####[facility] Caqimjgmxk7633 [place] [address]Dr. Garima Pulliam Neutrophils/100 WBC (Bld) 81.5 % Critically high 43.0-75.0 [facility] Comment on above: Performed By: #### C BC ####[facility] Eizexalgwk[address]461 [place] [address]Dr. Garima Pulliam Platelet mean volume (Bld) [Entitic vol] 8.6 fL Critically low 9.5-13.5 [facility] Comment on above: Performed By: #### C BC ####[facility] Akkstricuv[address]853 [place] [address]Dr. Garima Pulliam PLT 191 103/ul Normal 150-450 [facility] Comment on above: Performed By: #### C BC ####[facility] Y[address] [place], [place] [address]Dr. Garima Pulliam RBC 5.06 106/ul Normal 4.70-6.10 [facility] Comment on above: Performed By: #### C BC ####[facility] Tbvr[address]ojjd[address] [place], [place] [address]Dr. Garima Pulliam WBC 14.4 103/ul Critically high 4.0-11.0 [facility] Comment on above: Performed By: #### C BC ####[facility] [address] [place], [place] [address]Dr. Garima Pulliam [facility] SARS-CoV-2 (COVID-19) RNA MARIE+probe Ql (Unsp spec) Not detected Normal NOT DETECTED [facility] Comment on above: Result Comment: When [...] for this test is supported by the Painting [employer] Operator of Health and Human Service's declaration [...] be used). Performed By: #### C VDTBH ####[facility] [address] [place], [place] [address]Dr. Garima Pulliam LACTATE/LACTIC ACIDon 2021 Lactate [Moles/Vol] 1.0 mmol/L Normal 0.4-1.9 [facility] Comment on above: Performed By: #### L ACT ####[facility] Glgjoxhgbe[address] [place], [place] [address]Dr. Garima Pulliam PROF CHEM 8 (BAS METB)on Anion gap [Moles/Vol] 11.6 mmol/L Normal [facility] Comment on above: Performed By: #### B NANCY HERNANDEZ ####[facility] [address]ax[address]fc[address] [place] [address]Dr. Garima Pulliam Calcium [Mass/Vol] 9.2 mg/dL Normal 8.5-10.1 [facility] Comment on above: Performed By: #### B NANCY HERNANDEZ ####[facility] Liezagwwbk[address] [place] [address]Dr. Garima Pulliam Chloride [Moles/Vol] 105 mmol/L Normal 98-107 [facility] Comment on above: Performed By: #### B MP, CMADM ####[facility] Qvopyyeidf8669 [place] [address]Dr. Garima Pulliam CO2 [Moles/Vol] 25.9 mmol/L Normal 21.0-32.0 [facility] Comment on above: Performed By: #### B DAVID, CMADM ####[facility] [address]tmxzshfud20[address] [place] [address]Dr. Garima Pulliam Creatinine [Mass/Vol] 0.72 mg/dL Normal 0.70-1.30 [facility] Comment on above: Performed By: #### B DAVID, CMADM ####[facility] Uqjtvstvqg37[address] [place] [address]Dr. Garima Pulliam EGFR-AF ECUADOREAN >60 Normal >=60 [facility] Comment on above: Performed By: #### B DAVID, CMADM ####[facility] [address] [place] [address]Dr. Chapisrenu Pulliam EGFR-NON AF ECUADOREAN >60 Normal >=60 [facility] Comment on above: Performed By: #### B DAVID, CMAANA ROSA ####[facility] [address]vb[address]vi[address] [place] [address]Dr. Garima Pulliam Glucose [Mass/Vol] 111 mg/dL Critically high 74-106 [facility] Comment on above: Performed By: #### B DAVID, CMADM ####[facility] [address]rq[address]jj[address] [place] [address]Dr. Chapisrenu Pulliam Potassium [Moles/Vol] 3.5 mmol/L Normal 3.5-5.1 [facility] Comment on above: Performed By: #### B DAVID, CMADM ####[facility] [address]zv[address]wvyc[address] [place] [address]Dr. Chapisrenu Pulliam Sodium [Moles/Vol] 139 mmol/L Normal 136-145 [facility] Comment on above: Performed By: #### B DAVID, CMADM ####[facility] Fi[address]jlqvjm[address] [place] [address]Dr. Garima Pulliam Urea nitrogen [Mass/Vol] 7.0 mg/dL Normal 7.0-18.0 [facility] Comment on above: Performed By: #### B DAVID, CMADM ####[facility] [address] [place], [place] [address]Cu. Garima Pulliam Urea nitrogen/Creatinine [Mass ratio] 9.7 mg/mg Normal [facility] Comment on above: Performed By: #### B MP, CMADM ####[facility] [address] [place], [place] [address]. Gar[place] Pulliam XR CHEST 1 Von 09-12-2022 XR CHEST 1 V Normal [facility] Encounters Encounter Date Encounter Type Care [...] Facility:H1 Payers Date Payer Category Payer Unknown [id number] 1960 Medicaid [id number] 1960 Unknown [id number] 1959 Unknown [id number] 1954 Unknown [id number] 2.16.84 0.1.946505.3.579.2.593 1954 Unknown [id number] 2.16.84 0.1.332889.3.579.2.593 1954 Unknown [id number] 2.16.84 0.1.967419.3.579.2.593 1954 Unknown [id number] 2.16.84 0.1.160228.3.579.2.593 1954 Unknown [id number] 2.16.84 0.1.188455.3.579.2.593 1954 Unknown [id number] 2.16.84 0.1.243611.3.579.2.593 1954 Unknown [id number] 2.16.84 0.1.609586.3.579.2.593 1954 Unknown [id number] 2.16.84 0.1.814658.3.579.2.593 1954 Unknown [id number] 2.16.84 0.1.178396.3.579.2.593 1954 Unknown [id number] 2.16.84 0.1.464401.3.579.2.593 1954 Unknown [id number] 2.16.84 0.1.845754.3.579.2.593 1954 Unknown [id number] 2.16.84 0.1.782391.3.579.2.593 1954 Unknown [id number] 2.16.84 0.1.093057.3.579.2.593 1954 Unknown [id number] 2.16.84 0.1.199354.3.579.2.593 1954 Unknown [id number] 2.16.84 0.1.017194.3.579.2.593 1954 Unknown [id number] 2.16.84 0.1.861318.3.579.2.593 1954 Unknown [id number] 2.16.84 0.1.065474.3.579.2.593 1954 Unknown [id number] 2.16.84 0.1.083608.3.579.2.593 1954 Unknown [id number] 2.16.84 0.1.596861.3.579.2.593 1954 Unknown [id number] 2.16.84 0.1.961602.3.579.2.593 Summary Purpose Family History No Family History Records Found Advance Directives No Advanced Directives Records Found Additional Source Comments (unrecognized sect ion and content) No Status Records Found INFORMATION SOURCE (unrecogn ized section and content) DATE CREATED AUTHOR 04/08/2023 The [facility] FOR RECORDS PERTAINING TO PATIENTS WHO ARE [...] BE BASED ON THE PRIMARY CLINICAL RECORDS. [facility] [employer] [facility]. provides no warranty or guarantee of the accuracy or completeness of information in this document.
--- NOTE | 2024-10-07 21:46 | ED.SOB1 ---
HPI - SOB/Dyspnea General Chief Complaint: Shortness of Breath/Dyspnea Stated Complaint: SOB Time Seen by Provider: 10/07/24 21:40 Source: patient Mode of arrival: walk-in Limitations: no limitations History of Present Illness HPI Narrative: 69-year-old male presents to the emergency department for difficulty breathing. He has a history of COPD and he states he lost his medicine, albuterol. He lost his inhaler and does not have any nebulizer solution. No fever or chest pain. He is in this emergency department quite frequently with the same issue. Related Data Home Medications ?Medication ?Instructions ?Recorded ?Confirmed albuterol sulfate 90 mcg/actuation 2 inh inhalation Q6H PRN shortness 03/13/24 10/02/24 aerosol inhaler of breath or wheezing Previous Rx's ?Medication ?Instructions ?Recorded losartan 100 mg tablet 100 mg PO DAILY #30 tabs 12/27/23 albuterol sulfate 2.5 mg/3 mL 2.5 mg (3 mL) inhalation Q6H PRN 05/26/24 (0.083 %) solution for nebulization shortness of breath or wheezing #90 mL loratadine 10 mg tablet (Claritin) 10 mg PO DAILY #20 tabs 05/30/24 albuterol sulfate 2.5 mg/3 mL 2.5 mg (3 mL) inhalation Q6H PRN 08/07/24 (0.083 %) solution for nebulization shortness of breath or wheezing #90 mL albuterol sulfate 90 mcg/actuation 2 inh inhalation Q4H PRN shortness 08/07/24 aerosol inhaler of breath or wheezing #8.5 grams albuterol sulfate 2.5 mg/3 mL 1.25 mg (1.5 mL) inhalation Q6H 09/04/24 (0.083 %) solution for nebulization PRN bronchospasm #75 mL albuterol sulfate 90 mcg/actuation 2 inh inhalation Q6H PRN shortness 09/04/24 aerosol inhaler of breath or wheezing #6.7 grams albuterol sulfate 2.5 mg/3 mL 2.5 mg (3 mL) inhalation Q6H PRN 09/12/24 (0.083 %) solution for nebulization shortness of breath or wheezing #90 mL azithromycin 250 mg tablet See Rx Instructions PO .COMPLEX #6 09/21/24 (Zithromax Z-Luis) tabs prednisone 20 mg tablet See Rx Instructions .Route 09/21/24 .COMPLEX #12 tabs albuterol sulfate 2.5 mg/0.5 mL 2.5 mg (0.5 mL) inhalation Q4H PRN 10/02/24 solution for nebulization shortness of breath or wheezing #30 ea albuterol sulfate 90 mcg/actuation 2 inh inhalation Q4H PRN shortness 10/02/24 aerosol inhaler of breath or wheezing #6.7 grams albuterol sulfate 2.5 mg/3 mL 2.5 mg (3 mL) inhalation Q6H PRN 10/07/24 (0.083 %) solution for nebulization shortness of breath or wheezing #90 mL albuterol sulfate 90 mcg/actuation 2 inh inhalation Q4H PRN shortness 10/07/24 aerosol inhaler of breath or wheezing #8.5 grams Allergies Allergy/AdvReac Type Severity Reaction Status Date / Time No Known Drug Allergies Allergy Verified 10/02/24 03:40 Review of Systems ROS Narrative A ten point review of systems is negative except as noted above. [facility] Medical History (Updated 10/07/24 @ 22:12 by Diego Lilly MD) Hypokalemia ?E87.6 - Hypokalemia (ICD-10) New onset type 2 diabetes mellitus ?E11.9 - Type 2 diabetes mellitus without complications (ICD-10) Lower extremity edema ?R60.0 - Localized edema (ICD-10) Edema ?R60.9 - Edema, unspecified (ICD-10) Acute hyperglycemia ?R73.9 - Hyperglycemia, unspecified (ICD-10) Tobacco abuse ?Z72.0 - Tobacco use (ICD-10) HTN (hypertension) ?I10 - Essential (primary) hypertension (ICD-10) Community acquired pneumonia ?J18.9 - Pneumonia, unspecified organism (ICD-10) Chronic obstructive pulmonary disease ?J44.9 - Chronic obstructive pulmonary disease, unspecified (ICD-10) Acute exacerbation of chronic obstructive pulmonary disease (COPD) ?J44.1 - Chronic obstructive pulmonary disease with (acute) exacerbation (ICD-10) RLL pneumonia ?J18.9 - Pneumonia, unspecified organism (ICD-10) COPD (chronic obstructive pulmonary disease) ?J44.9 - Chronic obstructive pulmonary disease, unspecified (ICD-10) Surgical History (Updated 01/29/24 @ 06:45 by Latonia Martin RN) Hx of tonsillectomy ?Z90.89 - Acquired absence of other organs (ICD-10) Family History (Updated 12/25/23 @ 21:28 by Kym Ordaz) Mother Family history of cancer Family history of hypertension Father Family history of cancer Social History Within the past year, how often did you have a drink containing alcohol: 4 or more times a week Within the past year, how many standard drinks containing alcohol did you have on a typical day: 3 or 4 Within the past year, how often did you have six or more drinks on one occasion: less than monthly Total score: 3 Score interpretation: A score of 4 or more indicates drinking is likely to affect patient's safety. Smoking status: Current every day smoker Non-prescribed substance use: cannabis (any form) Previous occupational history: retired Highest level of school completed/degree received: high school graduate Are you now , , , , never or living with a partner: In a typical week, how many times do you talk on the telephone with family, friends, or neighbors: twice per week How often do you get together with friends or relatives: once per week How often do you attend christianity or moravian services: never Do you belong to any clubs or organizations such as christianity groups unions, fraternal or athletic groups, or school groups: no Total score: 1 Score interpretation: A score of less than or equal to 1 indicates the most socially isolated. Little interest or pleasure in doing things: not at all Feeling down, depressed, or hopeless: not at all Feel stressed/tense/nervous/anxious/difficulty sleeping: not at all Do you think of yourself as: straight/heterosexual Gender Identity: male Exam Narrative Exam Narrative: Nurses note and vital signs reviewed and patient is not hypoxic. General: The patient appears well and in no apparent respiratory distress. Skin: Warm, dry, no pallor noted. There is no rash noted. Head: Normocephalic, atraumatic Eye: Normal conjunctiva, no drainage Ears, Nose, Mouth, and Throat: oral mucosa is moist. Nares patent. Cardiovascular: Regular Rate and Rhythm Respiratory: Good air movement, some rhonchi present Back: non-tender, no CVA tenderness bilaterally to percussion. GI: Normal bowel sounds, no tenderness to palpation, no masses appreciated. No rebound, guarding, or rigidity noted. Musculoskeletal: The patient has no evidence of calf tenderness, no pitting edema, symmetrical pulses noted bilaterally Neurological: A&O, normal speech Psychiatric: Cooperative Constitutional Vital Signs, click to edit/add: Last Vital Signs Temp 98.7 F 10/07/24 21:40 Pulse 20 L 10/07/24 21:55 Resp 106 H 10/07/24 21:55 BP 180/90 H 10/07/24 21:48 Pulse Ox 98 10/07/24 21:55 O2 Del Method Room Air 10/07/24 21:55 Course Vital Signs Vital signs: Vital Signs Temperature 98.7 F 10/07/24 21:40 Pulse Rate 109 H 10/07/24 21:40 Respiratory Rate 22 H 10/07/24 21:40 Pulse Oximetry 94 L 10/07/24 21:40 Oxygen Delivery Method Room Air 10/07/24 21:40 Temperature 98.7 F 10/07/24 21:40 Pulse Rate 20 L 10/07/24 21:55 Respiratory Rate 106 H 10/07/24 21:55 Blood Pressure 180/90 H 10/07/24 21:48 Pulse Oximetry 98 10/07/24 21:55 Oxygen Delivery Method Room Air 10/07/24 21:55 MDM - SOB/Dyspnea MDM Narrative Medical decision making narrative: He was given aerosol treatment and feels improved. He was sent in prescriptions for albuterol inhaler and nebulizer medication. The importance of following up with a primary care physician was once again discussed with him. Differential Diagnosis Differential diagnosis: Likely acute exacerbation of chronic obstructive airways disease Discharge Plan Discharge Chief Complaint: Shortness of Breath/Dyspnea Clinical Impression: Acute exacerbation of chronic obstructive pulmonary disease, Medication refill Patient Disposition: Home, Self-Care Time of Disposition Decision: 22:12 Condition: Good Prescriptions / Home Meds: New albuterol sulfate 90 mcg/actuation HFA aerosol inhaler 2 inh inhalation Q4H PRN (Reason: shortness of breath or wheezing) Qty: 8.5 0RF albuterol sulfate 2.5 mg /3 mL (0.083 %) solution for nebulization 2.5 mg inhalation Q6H PRN (Reason: shortness of breath or wheezing) Qty: 90 0RF No Action losartan 100 mg tablet 100 mg PO DAILY Qty: 30 11RF albuterol sulfate 90 mcg/actuation HFA aerosol inhaler 2 inh inhalation Q6H PRN (Reason: shortness of breath or wheezing) albuterol sulfate 2.5 mg /3 mL (0.083 %) solution for nebulization 2.5 mg inhalation Q6H PRN (Reason: shortness of breath or wheezing) Qty: 90 0RF albuterol sulfate 2.5 mg /3 mL (0.083 %) solution for nebulization 2.5 mg inhalation Q6H PRN (Reason: shortness of breath or wheezing) Qty: 90 0RF albuterol sulfate 90 mcg/actuation HFA aerosol inhaler 2 inh inhalation Q4H PRN (Reason: shortness of breath or wheezing) Qty: 8.5 0RF albuterol sulfate 2.5 mg /3 mL (0.083 %) solution for nebulization 2.5 mg inhalation Q6H PRN (Reason: shortness of breath or wheezing) Qty: 90 0RF azithromycin [Zithromax Z-Luis] 250 mg tablet See Rx Instructions .ROUTE .COMPLEX Qty: 6 0RF Rx Instructions: For 250 mg dose pack: take 500 mg today (day 1), then 250 mg for 4 days (days 2-5) prednisone 20 mg tablet See Rx Instructions .ROUTE .COMPLEX Qty: 12 0RF Rx Instructions: 3 tabs daily for 2 days, then 2 tabs daily for 2 days, then 1 tab daily for 2 days albuterol sulfate 2.5 mg/0.5 mL solution for nebulization 2.5 mg inhalation Q4H PRN (Reason: shortness of breath or wheezing) Qty: 30 2RF albuterol sulfate 90 mcg/actuation HFA aerosol inhaler 2 inh inhalation Q4H PRN (Reason: shortness of breath or wheezing) Qty: 6.7 0RF loratadine [Claritin] 10 mg tablet 10 mg PO DAILY Qty: 20 0RF albuterol sulfate 2.5 mg /3 mL (0.083 %) solution for nebulization 1.25 mg inhalation Q6H PRN (Reason: bronchospasm) Qty: 75 0RF albuterol sulfate 90 mcg/actuation HFA aerosol inhaler 2 inh inhalation Q6H PRN (Reason: shortness of breath or wheezing) Qty: 6.7 0RF Print Language: Ecuadorean Instructions: COPD (Chronic Obstructive Pulmonary Disease) (ED), Medicine Refill (ED) Additional Instructions: Please obtain a primary care physician. List provided. Referrals: SERG DUENAS [Primary Care Provider] - 1 week
[2024-10-07 21:48] VITALS: BP 180/90
[2024-10-07] MEDS: ALBUTEROL SULFATE 2.5 MG/3 ML VIAL NEB IH (21:54)
[2024-10-07 21:55] VITALS: PULSE 20; O2SAT 98
[2024-10-07 22:22] VITALS: BP 170/80
== END 2024-10-07 22:24 | disposition home or self-care (01) ==
PROVIDERS: Emergency Provider Emergency Medicine
DX: J44.1 Chronic obstructive pulmonary disease with (acute) exacerbation (principal); Z76.0 Encounter for issue of repeat prescription; F17.200 Nicotine dependence, unspecified, uncomplicated
CPT/HCPCS: 94640; 99283

== ENCOUNTER 2024-11-03 18:11 | Emergency (ER) | payer MEDICARE, SELFPAY ==
--- OUTSIDE RECORDS SUMMARY | 2024-11-03 18:22 | XMS_ITS | CCD ---
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 Garima Pulliam Basophils/100 WBC (Bld) 0.3 % Normal 0.2-2.0 [facility] Comment on above: Performed By: #### C BC ####[facility] Aqxraxovof75[address] [place] [address]DrAdalberto Pulliam EO # 0.3 103/ul Normal 0.0-0.7 [facility] Comment on above: Performed By: #### C BC ####[facility] Cukxvcjbnj[address] [place], [place] [address]Dr. Garima Pulliam Eosinophils/100 WBC (Bld) 2.8 % Normal 0.9-7.0 [facility] Comment on above: Performed By: #### C BC ####[facility] Vhroynwdrn11[address] [place] [address]Dr. Garima Pulliam Erythrocyte distribution width (RBC) [Ratio] 13.4 % Normal 11.0-15.0 [facility] Comment on above: Performed By: #### C BC ####[facility] Aguwuqggpc8962 [place] [address]Dr. Garima Pulliam Hematocrit (Bld) [Volume fraction] 45.7 % Normal 42.0-54.0 [facility] Comment on above: Performed By: #### C BC ####[facility] Jewenjbpti[address] [place] [address]Dr. Garima Pulliam Hemoglobin (Bld) [Mass/Vol] 15.2 g/dL Normal 14.0-18.0 [facility] Comment on above: Performed By: #### C BC ####[facility] Hwcmhjxwik33[address] [place] [address]Dr. Garima Pulliam IG # 0.02 10e3/ul Normal 0.00-0.03 [facility] Comment on above: Performed By: #### C BC ####[facility] Ckrhqfiolt1155 [place] [address]Dr. Garima Pulliam IG % 0.2 % Normal 0.0-0.5 [facility] Comment on above: Performed By: #### C BC ####[facility] Wgjvhaodsp9718 [place] [address]Dr. Garima Pulliam LYMPH # 2.1 103/ul Normal 1.2-3.8 [facility] Comment on above: Performed By: #### C BC ####[facility] Jczbucvjwl5243 [place] [address]Dr. Garima Pulliam Lymphocytes/100 WBC (Bld) 23.7 % Normal 20.5-60.0 [facility] Comment on above: Performed By: #### C BC ####[facility] Wqblsvahis1121 [place] [address]Dr. Garima Heraclio MANUAL DIFF REQ NO Normal [facility] Comment on above: Performed By: #### C BC ####[facility] Qfespepezi5486 [place] [address]Dr. Garima Pulliam MCH (RBC) [Entitic mass] 30.4 pg Normal 25.9-34.0 [facility] Comment on above: Performed By: #### C BC ####[facility] Ocxtsfdbts8785 [place] [address]Dr. Garima Heraclio MCHC (RBC) [Mass/Vol] 33.3 g/dL Normal 29.9-35.2 [facility] Comment on above: Performed By: #### C BC ####[facility] Sazwwvffjd[address] [place], [place] [address]Dr. Chapisrenu Pulliam MCV (RBC) [Entitic vol] 91.4 fL Normal 80.0-94.0 [facility] Comment on above: Performed By: #### C BC ####[facility] Tkrriruxjk207[address] [place], [place] [address]Dr. Garima Heraclio MONO # 0.7 103/ul Normal 0.3-0.8 [facility] Comment on above: Performed By: #### C BC ####[facility] Dykvrxcegl130[address] [place], [place] [address]Dr. Chapisrenu Pulliam Monocytes/100 WBC (Bld) 8.3 % Normal 1.7-12.0 [facility] Comment on above: Performed By: #### C BC ####[facility] Nqtciojcwq5386 [place] [address]Dr. Chapisrenu Heraclio NEUT # 5.8 103/ul Normal 1.4-6.5 [facility] Comment on above: Performed By: #### C BC ####[facility] Jlscaaxbqw646[address] [place], [place] [address]Dr. Garima Pulliam Neutrophils/100 WBC (Bld) 64.7 % Normal 43.0-75.0 [facility] Comment on above: Performed By: #### C BC ####[facility] Epusrobbud8775 [place] [address]Dr. Garima Pulliam Platelet mean volume (Bld) [Entitic vol] 8.6 fL Critically low 9.5-13.5 [facility] Comment on above: Performed By: #### C BC ####[facility] Xfjlogvvrt2356 [place] [address]Dr. Garima Pulliam PLT 230 103/ul Normal 150-450 [facility] Comment on above: Performed By: #### C BC ####[facility] Mzthcwftgh4460 [place] [address]Dr. Chapisrenu Heraclio RBC 5.00 106/ul Normal 4.70-6.10 [facility] Comment on above: Performed By: #### C BC ####[facility] Obytiqlbvt6191 [place] [address]Dr. Garima Heraclio WBC 9.0 103/ul Normal 4.0-11.0 [facility] Comment on above: Performed By: #### C BC ####[facility] Mczjulvlzl1461 [place] [address]Dr. Garima Pulliam MAGNESIUMon 04-04-2023 Magnesium [Mass/Vol] 1.8 mg/dL Normal 1.8-2.4 [facility] Comment on above: Performed By: #### M G ####[facility] Yddopviaav4471 [place] [address]Dr. Chapisrenu Pulliam PROF 14(COMP METB)on 023 Albumin [Mass/Vol] 3.8 g/dL Normal 3.4-5.0 [facility] Comment on above: Performed By: #### C MP ####[facility] Lwmrnjuyms3418 [place] [address]Dr. Garima Pulliam Albumin/Globulin [Mass ratio] 1.2 {ratio} Normal [facility] Comment on above: Performed By: #### C MP ####[facility] Xwycwmmffb2301 [place] [address]Dr. Garima Heraclio ALP [Catalytic activity/Vol] 84 U/L Normal 46-116 [facility] Comment on above: Performed By: #### C MP ####[facility] Tviqicnumw6755 [place] [address]Dr. Garima Pulliam ALT [Catalytic activity/Vol] 31 U/L Normal 16-63 [facility] Comment on above: Performed By: #### C MP ####[facility] Lxtqyrozxz9792 [place] [address]Dr. Garima Pulliam Anion gap [Moles/Vol] 12.2 mmol/L Normal [facility] Comment on above: Performed By: #### C MP ####[facility] Vmzjcheocs7047 [place] [address]Dr. Garima Pulliam AST [Catalytic activity/Vol] 23 U/L Normal 15-37 [facility] Comment on above: Performed By: #### C MP ####[facility] Edziigxmnl467[address] [place], [place] [address]Dr. Garima Pulliam Bilirubin [Mass/Vol] 0.5 mg/dL Normal 0.2-1.0 [facility] Comment on above: Performed By: #### C MP ####[facility] Gvboccwzxt3437[address] [place], [place] [address]Dr. Garima Pulliam Calcium [Mass/Vol] 9.2 mg/dL Normal 8.5-10.1 [facility] Comment on above: Performed By: #### C MP ####[facility] Xnzrjprpzl47[address] [place], [place] [address]Dr. Garima Pulliam Chloride [Moles/Vol] 103 mmol/L Normal 98-107 [facility] Comment on above: Performed By: #### C MP ####[facility] Ftwlmygten1886 [place] [address]Dr. Garima Pulliam CO2 [Moles/Vol] 28.5 mmol/L Normal 21.0-32.0 [facility] Comment on above: Performed By: #### C MP ####[facility] Gvfterspqt059[address] [place], [place] [address]Dr. Garima Pulliam Creatinine [Mass/Vol] 0.74 mg/dL Normal 0.70-1.30 [facility] Comment on above: Performed By: #### C MP ####[facility] Pbclcynoxi4982 [place] [address]Dr. Garima Pulliam EGFR-AF IRANIAN >60 Normal >=60 [facility] Comment on above: Performed By: #### C MP ####[facility] Orhumhfeuz1769 [place] [address]Dr. Garima Heraclio EGFR-NON AF IRANIAN >60 Normal >=60 [facility] Comment on above: Performed By: #### C MP ####[facility] Intrjgxtbg7329 [place] [address]Dr. Garima Heraclio Globulin (S) [Mass/Vol] 3.1 g/dL Normal [facility] Comment on above: Performed By: #### C MP ####[facility] Yaeiskdbkb2934[address] [place], [place] [address]Dr. Garima Heraclio Glucose [Mass/Vol] 93 mg/dL Normal 74-106 [facility] Comment on above: Performed By: #### C MP ####[facility] Euupiswxzl916[address] [place], [place] [address]Dr. Garima Heraclio Potassium [Moles/Vol] 3.7 mmol/L Normal 3.5-5.1 [facility] Comment on above: Performed By: #### C MP ####[facility] Emjsfvfowq4264[address] [place], [place] [address]Dr. Garima Heraclio Protein [Mass/Vol] 6.9 g/dL Normal 6.4-8.2 [facility] Comment on above: Performed By: #### C MP ####[facility] Ktpyvkvjjn1464[address] [place], [place] [address]Dr. Garima Heraclio Sodium [Moles/Vol] 140 mmol/L Normal 136-145 [facility] Comment on above: Performed By: #### C MP ####[facility] Lylfrqrmdg326[address] [place], [place] [address]Dr. Garima Pulliam Urea nitrogen [Mass/Vol] 8.0 mg/dL Normal 7.0-18.0 [facility] Comment on above: Performed By: #### C MP ####[facility] Ildbqtzsrs770[address] [place], [place] [address]Dr. Garima Pulliam Urea nitrogen/Creatinine [Mass ratio] 10.8 mg/mg Normal [facility] Comment on above: Performed By: #### C DAVID ####[facility] Okxhwmqdov2308 [place] [address]Dr. Garima Pulliam AMMONIAon 03-30-2023 Ammonia (P) [Moles/Vol] 11 umol/L Normal 11-32 [facility] Comment on above: Performed By: #### A MM ####[facility] Bpcmyjfzeo613[address] [place], [place] [address]Dr. Garima Pulliam CARDIAC NASH ADMITon 023 CK [Catalytic activity/Vol] 232 U/L Normal 39-308 [facility] Comment on above: Performed By: #### C NANCY HERNANDEZ ####[facility] Glfhodojwt9225 [place] [address]Dr. Chapisrenu Pulliam CK.MB [Mass/Vol] 4.83 ng/mL Critically high <=3.60 [facility] Comment on above: Performed By: #### C NANCY HERNANDEZ ####[facility] Hxqmlcacss8[address] [place], [place] [address]Dr. Garima Pulliam HSTROP 10.5 pg/mL Normal 4.0-76.1 [facility] Comment on above: Result Comment: CUT- OFF POINTS HAVE BEEN ESTABLISHED BASED ON THE FOURTH UNIVERSAL DEFINITIONS OF MYOCARDIALINFARCTION. THE UPPER REFERENCE LIMIT (URL) OF TROPONIN, DEFINED THE 99TH PERCENTILE OFcTnI DISTRIBUTION IN A REFERENCE POPULATION, HAS BEEN CONFIRMED THE DECISION THRESHOLDFOR MO DIAGNOSIS. Performed By: #### C NANCY HERNANDEZ ####[facility] Apcylbnzfo6950[address] [place], [place] [address]Dr. Garima Heraclio DORIS 79 ng/mL Normal 16-96 [facility] Comment on above: Performed By: #### C NANCY HERNANDEZ ####[facility] Qnmlbpiqdk524[address] [place], [place] [address]Dr. Garima Heraclio CBC AUTO DIFFon 03-30-2023 BASO # 0.0 103/ul Normal 0.0-0.1 [facility] Comment on above: Performed By: #### C BC ####[facility] Guegbyvbpm4894 [place] [address]Dr. Garima Pulliam Basophils/100 WBC (Bld) 0.1 % Critically low 0.2-2.0 [facility] Comment on above: Performed By: #### C BC ####[facility] Zdgjcenztc8072 [place] [address]Dr. Garima Pulliam EO # 0.3 103/ul Normal 0.0-0.7 [facility] Comment on above: Performed By: #### C BC ####[facility] Rawspdfwer[address] [place], [place] [address]Dr. Garima Pulliam Eosinophils/100 WBC (Bld) 3.3 % Normal 0.9-7.0 [facility] Comment on above: Performed By: #### C BC ####[facility] Scxiispksq[address] [place], [place] [address]Dr. Garima Pulliam Erythrocyte distribution width (RBC) [Ratio] 13.5 % Normal 11.0-15.0 [facility] Comment on above: Performed By: #### C BC ####[facility] Aqlltswktf[address] [place], [place] [address]Dr. Garima Pulliam Hematocrit (Bld) [Volume fraction] 42.9 % Normal 42.0-54.0 [facility] Comment on above: Performed By: #### C BC ####[facility] Bcjfmjtswl[address] [place], [place] [address]Dr. Garima Pulliam Hemoglobin (Bld) [Mass/Vol] 13.9 g/dL Critically low 14.0-18.0 [facility] Comment on above: Performed By: #### C BC ####[facility] Vhbdvrvzmh0023 [place] [address]Dr. Garima Pulliam IG # 0.01 10e3/ul Normal 0.00-0.03 [facility] Comment on above: Performed By: #### C BC ####[facility] Cmisjdsgcu[address] [place], [place] [address]Dr. Garima Pulliam IG % 0.1 % Normal 0.0-0.5 [facility] Comment on above: Performed By: #### C BC ####[facility] Nbtbgrntoq9992 [place] [address]Dr. Garima Pulliam LYMPH # 1.7 103/ul Normal 1.2-3.8 [facility] Comment on above: Performed By: #### C BC ####[facility] Songapjubg6875 [place], [place] [address]Wp. Garima Pulliam Lymphocytes/100 WBC (Bld) 22.8 % Normal 20.5-60.0 [facility] Comment on above: Performed By: #### C BC ####[facility] Lxgeuhtced7135 [place] [address]Dr. Garima Heraclio MANUAL DIFF REQ NO Normal [facility] Comment on above: Performed By: #### C BC ####[facility] Rzggxaftgh2053 [place] [address]Dr. Garima Heraclio MCH (RBC) [Entitic mass] 30.5 pg Normal 25.9-34.0 [facility] Comment on above: Performed By: #### C BC ####[facility] Gumcpnaloj5822 [place] [address]Dr. Garima Pulliam MCHC (RBC) [Mass/Vol] 32.4 g/dL Normal 29.9-35.2 [facility] Comment on above: Performed By: #### C BC ####[facility] Zceevpbozj5664 [place] [address]Dr. Garima Heraclio MCV (RBC) [Entitic vol] 94.1 fL Critically high 80.0-94.0 [facility] Comment on above: Performed By: #### C BC ####[facility] Zpsbyxzhmv7226 [place] [address]Dr. Garima Heraclio MONO # 0.7 103/ul Normal 0.3-0.8 [facility] Comment on above: Performed By: #### C BC ####[facility] Xvksfsvlnt4522 [place] [address]Dr. Garima Heraclio Monocytes/100 WBC (Bld) 8.6 % Normal 1.7-12.0 [facility] Comment on above: Performed By: #### C BC ####[facility] Obqqjlnzwb3383 [place] [address]Dr. Garima Pulliam NEUT # 4.9 103/ul Normal 1.4-6.5 [facility] Comment on above: Performed By: #### C BC ####[facility] Zuvqfoojmo7274 [place] [address]Dr. Garima Pulliam Neutrophils/100 WBC (Bld) 65.1 % Normal 43.0-75.0 [facility] Comment on above: Performed By: #### C BC ####[facility] Wsdfuefdhu3758 [place] [address]Dr. Garima Pulliam Platelet mean volume (Bld) [Entitic vol] 8.5 fL Critically low 9.5-13.5 [facility] Comment on above: Performed By: #### C BC ####[facility] Oufdkqmnyz2872 [place] [address]Dr. Garima Pulliam PLT 219 103/ul Normal 150-450 [facility] Comment on above: Performed By: #### C BC ####[facility] Ixytstbidx3819 [place] [address]Dr. Garima Pulliam RBC 4.56 106/ul Critically low 4.70-6.10 [facility] Comment on above: Performed By: #### C BC ####[facility] Zbqkcykzak2167 [place] [address]Dr. Garima Pulliam WBC 7.6 103/ul Normal 4.0-11.0 [facility] Comment on above: Performed By: #### C BC ####[facility] Kjlnuydbmr4177 [place] [address]Dr. Garima Pulliam LACTATE/LACTIC ACIDon 2022 Lactate [Moles/Vol] 1.2 mmol/L Normal 0.4-2.0 [facility] Comment on above: Performed By: #### L ACT ####[facility] Ixbixvuvft1849 [place] [address]Dr. Garima Pulliam MAGNESIUMon 03-30-2023 Magnesium [Mass/Vol] 1.8 mg/dL Normal 1.8-2.4 [facility] Comment on above: Performed By: #### M G ####[facility] Duvngtadlc3895 [place] [address]Dr. Garima Pulliam PROF 14(COMP METB)on 023 Albumin [Mass/Vol] 3.5 g/dL Normal 3.4-5.0 [facility] Comment on above: Performed By: #### C DAVID, CMAANA ROSA ####[facility] Qfzaanuzjx3889 [place] [address]Dr. Garima Pulliam Albumin/Globulin [Mass ratio] 1.2 {ratio} Normal [facility] Comment on above: Performed By: #### C DAVID, CMAANA ROSA ####[facility] Kayhjtdifo9986 [place] [address]Dr. Garima Pulliam ALP [Catalytic activity/Vol] 85 U/L Normal 46-116 [facility] Comment on above: Performed By: #### C DAVID, CMAANA ROSA ####[facility] Bwhbqeyrpu[address] [place], [place] [address]Dr. Garima Pulliam ALT [Catalytic activity/Vol] 29 U/L Normal 16-63 [facility] Comment on above: Performed By: #### C DAVID, CMAANA ROSA ####[facility] Hsmgafyxdj4670 [place] [address]Dr. Garima Pulliam Anion gap [Moles/Vol] 8.0 mmol/L Normal [facility] Comment on above: Performed By: #### C DAVID, CMAANA ROSA ####[facility] Bnbwtbmxmd0638 [place] [address]Dr. Garima Pulliam AST [Catalytic activity/Vol] 18 U/L Normal 15-37 [facility] Comment on above: Performed By: #### C DAVID, CMADM ####[facility] Gkpkwywxoc5620 [place] [address]Dr. Garima Pulliam Bilirubin [Mass/Vol] 0.4 mg/dL Normal 0.2-1.0 [facility] Comment on above: Performed By: #### C DAVID, CMADM ####[facility] Mvdaaeqdgr7263 [place] [address]Dr. Garima Pulliam Calcium [Mass/Vol] 8.8 mg/dL Normal 8.5-10.1 [facility] Comment on above: Performed By: #### C DAVID, NANCY ####[facility] Rhkzdkpnyx3705 [place] [address]Dr. Chapisrenu Pulliam Chloride [Moles/Vol] 108 mmol/L Critically high 98-107 [facility] Comment on above: Performed By: #### C DAVID, NANCY ####[facility] Vwsurnhobx9171 [place] [address]Dr. Garima Pulliam CO2 [Moles/Vol] 29.6 mmol/L Normal 21.0-32.0 [facility] Comment on above: Performed By: #### C NANCY HERNANDEZ ####[facility] Hzwejnvskd8[address] [place], [place] [address]Dr. Garima Pulliam Creatinine [Mass/Vol] 0.77 mg/dL Normal 0.70-1.30 [facility] Comment on above: Performed By: #### C NANCY HERNANDEZ ####[facility] Ultyzagaoy[address] [place], [place] [address]Dr. Garima Heraclio EGFR-AF IRANIAN >60 Normal >=60 [facility] Comment on above: Performed By: #### C NANCY HERNANDEZ ####[facility] Rbsiocjclp1969[address] [place], [place] [address]Dr. Garima Heraclio EGFR-NON AF IRANIAN >60 Normal >=60 [facility] Comment on above: Performed By: #### C NANCY HERNANDEZ ####[facility] Tiokdwevam4360 [place] [address]Dr. Garima Pulliam Globulin (S) [Mass/Vol] 2.8 g/dL Normal [facility] Comment on above: Performed By: #### C NANCY HERNANDEZ ####[facility] Berqrovvss8271 [place] [address]Dr. Garima Pulliam Glucose [Mass/Vol] 207 mg/dL Critically high 74-106 [facility] Comment on above: Performed By: #### C NANCY HERNANDEZ ####[facility] Hwldimobtn215[address] [place], [place] [address]Dr. Garima Pulliam Potassium [Moles/Vol] 4.6 mmol/L Normal 3.5-5.1 [facility] Comment on above: Performed By: #### C DAVID, NANCY ####[facility] Jhwzvxptmu5024 [place] [address]Dr. Garima Pulliam Protein [Mass/Vol] 6.3 g/dL Critically low 6.4-8.2 [facility] Comment on above: Performed By: #### C DAVID, NANCY ####[facility] Vesazkyegh7247 [place] [address]Dr. Garima Pulliam Sodium [Moles/Vol] 141 mmol/L Normal 136-145 [facility] Comment on above: Performed By: #### C DAVID, NANCY ####[facility] Qxeroekfyk3500 [place] [address]Dr. Garima Pulliam Urea nitrogen [Mass/Vol] 9.0 mg/dL Normal 7.0-18.0 [facility] Comment on above: Performed By: #### C DAVID, NANCY ####[facility] Mbuzrgmdkh9301 [place] [address]Dr. Garima Pulliam Urea nitrogen/Creatinine [Mass ratio] 11.7 mg/mg Normal [facility] Comment on above: Performed By: #### C DAVID, NANCY ####[facility] Hudnxnakwg8042 [place] [address]Dr. Garima Pulliam XR CHEST 1 Von 03-30-2023 XR CHEST 1 V Normal [facility] BNPon 03-27-2023 Natriuretic peptide B (Bld) [Mass/Vol] 251.0 pg/mL Normal <=900.0 [facility] Comment on above: Performed By: #### C MP, BNP, LIPID ####[facility] Itrtmofeqc2550 [place] [address]Dr. Garima Pulliam GLYCOHEMOGLOBIN A1Con 2022 ADA RECOMMENDATION SEE BELOW Normal [facility] Comment on above: Result Comment: ADA RECOMMENDED LIMIT 4.0 - 6.0 ADA THERAPEUTIC TARGET < 7.0 ACTION SUGGESTED > 7.0 Performed By: #### A 1C ####[facility] Ceaejmujkc1852 [place] [address]Dr. Garima Pulliam Glucose [Mass/Vol] 180 mg/dL Normal [facility] Comment on above: Performed By: #### A 1C ####[facility] Getlberbpa37[address] [place], [place] [address]Dr. Chapisrenu Pulliam HbA1c (Bld) [Mass fraction] 7.9 % Critically high 4.5-6.2 [facility] Comment on above: Performed By: #### A 1C ####[facility] Bzlmzorgim879[address] [place], [place] [address]Dr. Garima Pulliam HEMOGRAM AND PLATELon 2022 Hematocrit (Bld) [Volume fraction] 45.7 % Normal 42.0-54.0 [facility] Comment on above: Performed By: #### H H ####[facility] Wugjimoofs[address] [place], [place] [address]Dr. Garima Pulliam Hemoglobin (Bld) [Mass/Vol] 15.1 g/dL Normal 14.0-18.0 [facility] Comment on above: Performed By: #### H H ####[facility] Bsyrisazas119[address] [place], [place] [address]Dr. Garima Pulliam MCH (RBC) [Entitic mass] 30.0 pg Normal 25.9-34.0 [facility] Comment on above: Performed By: #### H H ####[facility] Ltojorckau[address] [place], [place] [address]Dr. Garima Pulliam MCHC (RBC) [Mass/Vol] 33.0 g/dL Normal 29.9-35.2 [facility] Comment on above: Performed By: #### H H ####[facility] Miqwmenjbu15[address] [place], [place] [address]Dr. Garima Pulliam MCV (RBC) [Entitic vol] 90.7 fL Normal 80.0-94.0 [facility] Comment on above: Performed By: #### H H ####[facility] Nujshylyry34[address] [place], [place] [address]Dr. Garima Pulliam PLT 222 103/ul Normal 150-450 [facility] Comment on above: Performed By: #### H H ####[facility] Faanxjjaua3144 [place] [address]Dr. Garima Pulliam RBC 5.04 106/ul Normal 4.70-6.10 [facility] Comment on above: Performed By: #### H H ####[facility] Zeqdvdbmtm2373 [place] [address]Dr. Graima Pulliam WBC 8.7 103/ul Normal 4.0-11.0 [facility] Comment on above: Performed By: #### H H ####[facility] [address] [place] [id number]. Garima Pulliam LIPID PROFILEon 03-27-2023 CHOL-HDL RATIO NORM SEE BELOW Normal [facility] Comment on above: Result Comment: 3.3 - 4.4 LOW RISK 4.4 - 7.1 AVERAGE RISK 7.1 - 11.0 MODERATE RISK >11.0 HIGH RISK Performed By: #### C MP, BNP, LIPID ####[facility] [address] [place] [address]Dr. Garima Pulliam Cholesterol [Mass/Vol] 113 mg/dL Normal <=200 [facility] Comment on above: Performed By: #### C MP, BNP, LIPID ####[facility] Oyf[address]zd[address] [place] [address]Dr. Garima Pulliam Cholesterol in HDL [Mass/Vol] 51 mg/dL Normal 40-60 [facility] Comment on above: Performed By: #### C MP, BNP, LIPID ####[facility] Bpujknbplo[address] [place] [address]Dr. Garima Pulliam Cholesterol in LDL [Mass/Vol] 49.8 mg/dL Normal [facility] Comment on above: Performed By: #### C MP, BNP, LIPID ####[facility] Ohbzoksydv[address] [place] [address]Dr. Garima Pulliam Cholesterol.total/Cho lesterol in HDL [Mass ratio] 2.2 {ratio} Normal [facility] Comment on above: Performed By: #### C MP, BNP, LIPID ####[facility] Hohflivihy[address] [place] [address]Dr. Garima Pulliam HDL NORMAL > or = 60 mg/dl - LOW CARDIOVASCULAR RISK <40 mg/dl - HIGH CARDIOVASCULAR RISK Normal [facility] Comment on above: Performed By: #### C MP, BNP, LIPID ####[facility] Fcuajkdtcn[address] [place] [address]Dr. Garima Pulliam LDL CALC NORMAL SEE BELOW Normal [facility] Comment on above: Result Comment: <100 mg/dl OPTIMAL 100 - 129 mg/dl NEAR OR ABOVE OPTIMAL 130 - 159 mg/dl BORDERLINE HIGH 160 - 189 mg/dl HIGH >190 mg/dl VERY HIGH Performed By: #### C MP, BNP, LIPID ####[facility] Zxejlwapne[address] [place] [address]Dr. Garima Pulliam Triglyceride [Mass/Vol] 61 mg/dL Normal <=150 [facility] Comment on above: Performed By: #### C MP, BNP, LIPID ####[facility] V[address]zlwcgw[address] [place] [address]Dr. Garima Pulliam VLDL CALC 12.2 mg/dL Normal [facility] Comment on above: Performed By: #### C MP, BNP, LIPID ####[facility] Mjqpvjixra[address] [place] [address]Dr. Garima Pulliam PROF 14(COMP METB)on 023 Albumin [Mass/Vol] 3.5 g/dL Normal 3.4-5.0 [facility] Comment on above: Performed By: #### C MP, BNP, LIPID ####[facility] Qzjpmhized16[address] [place] [address]Dr. Garima Pulliam Albumin/Globulin [Mass ratio] 1.2 {ratio} Normal [facility] Comment on above: Performed By: #### C MP, BNP, LIPID ####[facility] Wdpexsvhzu[address] [place] [address]Dr. Garima Pulliam ALP [Catalytic activity/Vol] 82 U/L Normal 46-116 [facility] Comment on above: Performed By: #### C MP, BNP, LIPID ####[facility] Bqbeaoameg[address] [place] [address]Dr. Garima Pulliam ALT [Catalytic activity/Vol] 33 U/L Normal 16-63 [facility] Comment on above: Performed By: #### C MP, BNP, LIPID ####[facility] Obfsqtigsm[address] [place] [address]Dr. Garima Pulliam Anion gap [Moles/Vol] 9.9 mmol/L Normal [facility] Comment on above: Performed By: #### C MP, BNP, LIPID ####[facility] Ryiowxtcmi[address] [place] [address]Dr. Garima Pulliam AST [Catalytic activity/Vol] 24 U/L Normal 15-37 [facility] Comment on above: Performed By: #### C MP, BNP, LIPID ####[facility] Euggjiejdz[address] [place] [address]Dr. Garima Pulliam Bilirubin [Mass/Vol] 0.6 mg/dL Normal 0.2-1.0 [facility] Comment on above: Performed By: #### C MP, BNP, LIPID ####[facility] Jxkwbqmvzk4[address] [place] [address]Dr. Garima Pulliam Calcium [Mass/Vol] 9.2 mg/dL Normal 8.5-10.1 [facility] Comment on above: Performed By: #### C MP, BNP, LIPID ####[facility] Vduugobfnz[address] [place] [address]Dr. Garima Pulliam Chloride [Moles/Vol] 106 mmol/L Normal 98-107 [facility] Comment on above: Performed By: #### C MP, BNP, LIPID ####[facility] Rzgyodegel[address] [place] [address]Dr. Garima Pulliam CO2 [Moles/Vol] 32.3 mmol/L Critically high 21.0-32.0 [facility] Comment on above: Performed By: #### C MP, BNP, LIPID ####[facility] Drdqvlrdse2935 [place] [address]Dr. Garima Pulliam Creatinine [Mass/Vol] 0.70 mg/dL Normal 0.70-1.30 [facility] Comment on above: Performed By: #### C MP, BNP, LIPID ####[facility] Wpuryxikkj[address] [place] [id number]. Garima Pulliam EGFR-AF IRANIAN >60 Normal >=60 [facility] Comment on above: Performed By: #### C MP, BNP, LIPID ####[facility] Plrrpxxjkc05[address] [place] [address]Dr. Garima Pulliam EGFR-NON AF IRANIAN >60 Normal >=60 [facility] Comment on above: Performed By: #### C MP, BNP, LIPID ####[facility] Vgisoikofc[address] [place] [address]Dr. Garima Pulliam Globulin (S) [Mass/Vol] 2.9 g/dL Normal [facility] Comment on above: Performed By: #### C MP, BNP, LIPID ####[facility] Dhstocbnzc0082 [place] [address]Dr. Garima Pulliam Glucose [Mass/Vol] 111 mg/dL Critically high 74-106 [facility] Comment on above: Performed By: #### C MP, BNP, LIPID ####[facility] Vkmmtaownq6546 [place] [address]Dr. Garima Pulliam Potassium [Moles/Vol] 4.2 mmol/L Normal 3.5-5.1 [facility] Comment on above: Performed By: #### C MP, BNP, LIPID ####[facility] Yzlmzopnjo026[address] [place] [address]Dr. Garima Pulliam Protein [Mass/Vol] 6.4 g/dL Normal 6.4-8.2 [facility] Comment on above: Performed By: #### C MP, BNP, LIPID ####[facility] Eqsfdnfaym2472 [place] [address]Dr. Garima Pulliam Sodium [Moles/Vol] 144 mmol/L Normal 136-145 [facility] Comment on above: Performed By: #### C MP, BNP, LIPID ####[facility] Punpqiwwhk5020 [place] [address]Dr. Garima Pulliam Urea nitrogen [Mass/Vol] 7.0 mg/dL Normal 7.0-18.0 [facility] Comment on above: Performed By: #### C MP, BNP, LIPID ####[facility] Wamrjaerll[address] [place], [place] [address]Dr. Garima Pulliam Urea nitrogen/Creatinine [Mass ratio] 10.0 mg/mg Normal [facility] Comment on above: Performed By: #### C MP, BNP, LIPID ####[facility] Aratgghhib[address] [place], [place] [address]Dr. Garima Pulliam BNPon 03-22-2023 Natriuretic peptide B (Bld) [Mass/Vol] 103.0 pg/mL Normal <=900.0 [facility] Comment on above: Performed By: #### B SHOVEL LOGGER, BMP ####[facility] Qyzhnrbwzd[address] [place], [place] [address]Dr. Garima Pulliam CBC AUTO DIFFon 03-22-2023 BASO # 0.0 103/ul Normal 0.0-0.1 [facility] Comment on above: Performed By: #### C BC ####[facility] Hkdzwrdiiu[address] [place], [place] [address]Dr. Garima Heraclio Basophils/100 WBC (Bld) 0.3 % Normal 0.2-2.0 [facility] Comment on above: Performed By: #### C BC ####[facility] Feoiighkxj[address] [place], [place] [address]Dr. Garima Pulliam EO # 0.2 103/ul Normal 0.0-0.7 [facility] Comment on above: Performed By: #### C BC ####[facility] Jvvmtdfohk[address] [place], [place] [address]Dr. Garima Pulliam Eosinophils/100 WBC (Bld) 2.2 % Normal 0.9-7.0 [facility] Comment on above: Performed By: #### C BC ####[facility] Egupwpvmsu350[address] [place], [place] [address]Dr. Garima Pulliam Erythrocyte distribution width (RBC) [Ratio] 13.2 % Normal 11.0-15.0 [facility] Comment on above: Performed By: #### C BC ####[facility] Opbadrssdi7507 [place] [address]Dr. Garima Pulliam Hematocrit (Bld) [Volume fraction] 43.4 % Normal 42.0-54.0 [facility] Comment on above: Performed By: #### C BC ####[facility] Pwlhbpwnnj77[address] [place] [address]Dr. Garima Heraclio Hemoglobin (Bld) [Mass/Vol] 14.3 g/dL Normal 14.0-18.0 [facility] Comment on above: Performed By: #### C BC ####[facility] Xoczsasttd15[address] [place] [address]Dr. Garima Pulliam IG # 0.02 10e3/ul Normal 0.00-0.03 [facility] Comment on above: Performed By: #### C BC ####[facility] Csouzofkdq55[address] [place] [address]Dr. Garima Pulliam IG % 0.3 % Normal 0.0-0.5 [facility] Comment on above: Performed By: #### C BC ####[facility] Bpavkhjwnv5[address] [place] [address]Dr. Chapisrenu Pulliam LYMPH # 2.0 103/ul Normal 1.2-3.8 [facility] Comment on above: Performed By: #### C BC ####[facility] Nywhhnpkyu24[address] [place] [address]Dr. Chapisrenu Pulliam Lymphocytes/100 WBC (Bld) 24.8 % Normal 20.5-60.0 [facility] Comment on above: Performed By: #### C BC ####[facility] Sdaskcldbr[address] [place] [address]Dr. Chapisrenu Pulliam MANUAL DIFF REQ NO Normal [facility] Comment on above: Performed By: #### C BC ####[facility] Cxvuxvrkzp86[address] [place] [address]Dr. Garima Heraclio MCH (RBC) [Entitic mass] 30.0 pg Normal 25.9-34.0 [facility] Comment on above: Performed By: #### C BC ####[facility] Kuznhszhqc[address] [place], [place] [address]Dr. Garima Pulliam MCHC (RBC) [Mass/Vol] 32.9 g/dL Normal 29.9-35.2 [facility] Comment on above: Performed By: #### C BC ####[facility] Jxvufkqwpb06[address] [place] [address]Dr. Garima Pulliam MCV (RBC) [Entitic vol] 91.0 fL Normal 80.0-94.0 [facility] Comment on above: Performed By: #### C BC ####[facility] Qxsomevbai5949 [place] [address]Dr. Garima Heraclio MONO # 0.8 103/ul Normal 0.3-0.8 [facility] Comment on above: Performed By: #### C BC ####[facility] Xrbxdnxhma1393 [place] [address]Dr. Chapisrenu Pulliam Monocytes/100 WBC (Bld) 9.7 % Normal 1.7-12.0 [facility] Comment on above: Performed By: #### C BC ####[facility] Gkqfhlspyr18[address] [place] [address]Dr. Garima Pulliam NEUT # 4.9 103/ul Normal 1.4-6.5 [facility] Comment on above: Performed By: #### C BC ####[facility] Mvijtxzedw9484 [place] [address]Dr. Garima Heraclio Neutrophils/100 WBC (Bld) 62.7 % Normal 43.0-75.0 [facility] Comment on above: Performed By: #### C BC ####[facility] Fpxbooslqe6[address] [place] [address]Dr. Garima Heraclio Platelet mean volume (Bld) [Entitic vol] 8.8 fL Critically low 9.5-13.5 [facility] Comment on above: Performed By: #### C BC ####[facility] Gwogjqcnsa5[address] [place] [address]Dr. Garima Heraclio PLT 198 103/ul Normal 150-450 [facility] Comment on above: Performed By: #### C BC ####[facility] Bqkacnwuzi3419 [place] [address]Dr. Garima Heraclio RBC 4.77 106/ul Normal 4.70-6.10 [facility] Comment on above: Performed By: #### C BC ####[facility] Hzxgfollqx7108 [place] [address]Dr. Garima Heraclio WBC 7.9 103/ul Normal 4.0-11.0 [facility] Comment on above: Performed By: #### C BC ####[facility] Fozmoaawcj[address] [place] [address]Dr. Garima Heraclio D-DIMERon 03-22-2023 D-DIMER 0.85 mg/L FEU Critically high <=0.59 [facility] Comment on above: Performed By: #### D DIM ####[facility] Eubnkyasrd[address] [place] [address]Dr. Garima Pulliam D-DIMER COMMENTS SEE BELOW Normal [facility] Comment on above: Result Comment: Incr [...] Performed By: #### D DIM ####[facility] Tavkpbjdmt64[address] [place], [place] [address]Dr. Garima Pulliam PROF CHEM 8 (BAS METB)on Anion gap [Moles/Vol] 6.9 mmol/L Normal [facility] Comment on above: Performed By: #### B SHOVEL LOGGER, BMP ####[facility] Wxryoiuwzc5330 [place] [address]Dr. Garima Pulliam Calcium [Mass/Vol] 8.9 mg/dL Normal 8.5-10.1 [facility] Comment on above: Performed By: #### B SHOVEL LOGGER, BMP ####[facility] Cikzrnjjyy50[address] [place] [address]Dr. Garima Pulliam Chloride [Moles/Vol] 101 mmol/L Normal 98-107 [facility] Comment on above: Performed By: #### B SHOVEL LOGGER, BMP ####[facility] Julmepvdhy09[address] [place], [place] [address]Dr. Chapisrenu Heraclio CO2 [Moles/Vol] 30.7 mmol/L Normal 21.0-32.0 [facility] Comment on above: Performed By: #### B SHOVEL LOGGER, BMP ####[facility] Bybnqakuzu39[address] [place], [place] [address]Dr. Garima Pulliam Creatinine [Mass/Vol] 0.82 mg/dL Normal 0.70-1.30 [facility] Comment on above: Performed By: #### B SHOVEL LOGGER, BMP ####[facility] Mnqrdqgjve205[address] [place], [place] [address]Dr. Garima Pulliam EGFR-AF IRANIAN >60 Normal >=60 [facility] Comment on above: Performed By: #### B SHOVEL LOGGER, BMP ####[facility] Zxiwbvijrr9[address] [place], [place] [address]Dr. Chapisrenu Heraclio EGFR-NON AF IRANIAN >60 Normal >=60 [facility] Comment on above: Performed By: #### B SHOVEL LOGGER, BMP ####[facility] Wdjjciokmi624[address] [place], [place] [address]Dr. Garima Pulliam Glucose [Mass/Vol] 339 mg/dL Critically high 74-106 T [facility] Comment on above: Performed By: #### B SHOVEL LOGGER, BMP ####[facility] Kpmleozyfc2526[address] [place], [place] [address]Dr. Garima Pulliam Potassium [Moles/Vol] 3.6 mmol/L Normal 3.5-5.1 [facility] Comment on above: Performed By: #### B SHOVEL LOGGER, BMP ####[facility] Jeuqvozelu185[address] [place], [place] [address]Dr. Garima Pulliam Sodium [Moles/Vol] 135 mmol/L Critically low 136-145 [facility] Comment on above: Performed By: #### B SHOVEL LOGGER, BMP ####[facility] Bijtvpvdbe757[address] [place], [place] [address]Dr. Garima Pulliam Urea nitrogen [Mass/Vol] 11.0 mg/dL Normal 7.0-18.0 [facility] Comment on above: Performed By: #### B SHOVEL LOGGER, BMP ####[facility] Xqbcyimqnr332[address] [place], [place] [address]Dr. Garima Pulliam Urea nitrogen/Creatinine [Mass ratio] 13.4 mg/mg Normal [facility] Comment on above: Performed By: #### B SHOVEL LOGGER, BMP ####[facility] Gdnlubggdp67[address] [place], [place] [address]Dr. Garima Pulliam US VERONICA DOP LEG BILon 023 US VERONICA DOP LEG BENOIT Normal [facility] BNPon 03-18-2023 Natriuretic peptide B (Bld) [Mass/Vol] 226.0 pg/mL Normal <=900.0 [facility] Comment on above: Performed By: #### B SHOVEL LOGGER, BMP ####[facility] Lljyewlsco0940[address] [place], [place] [address]Dr. Garima Pulliam CBC AUTO DIFFon 03-18-2023 BASO # 0.0 103/ul Normal 0.0-0.1 [facility] Comment on above: Performed By: #### C BC ####[facility] Okcqnblule425[address] [place], [place] [address]Dr. Garima Heraclio Basophils/100 WBC (Bld) 0.2 % Normal 0.2-2.0 [facility] Comment on above: Performed By: #### C BC ####[facility] Cnvplfmscm15[address] [place], [place] [address]Dr. Garima Pulliam EO # 0.3 103/ul Normal 0.0-0.7 [facility] Comment on above: Performed By: #### C BC ####[facility] Lqqovxtamf375[address] [place], [place] [address]Dr. Garima Heraclio Eosinophils/100 WBC (Bld) 2.5 % Normal 0.9-7.0 [facility] Comment on above: Performed By: #### C BC ####[facility] Wtorfwpsbl385[address] [place], [place] [address]Dr. Garima Heraclio Erythrocyte distribution width (RBC) [Ratio] 13.2 % Normal 11.0-15.0 [facility] Comment on above: Performed By: #### C BC ####[facility] Fpsldskimy05[address] [place] [address]DrAdalberto Pulliam Hematocrit (Bld) [Volume fraction] 45.8 % Normal 42.0-54.0 [facility] Comment on above: Performed By: #### C BC ####[facility] Sgaepztwjm3798 [place] [address]DrAdalberto Pulliam Hemoglobin (Bld) [Mass/Vol] 15.3 g/dL Normal 14.0-18.0 [facility] Comment on above: Performed By: #### C BC ####[facility] Jtvaooladq[address] [place], [place] [address]DrAdalberto Pulliam IG # 0.02 10e3/ul Normal 0.00-0.03 [facility] Comment on above: Performed By: #### C BC ####[facility] Ykbyirdscg034[address] [place], [place] [address]DrAdalberto Pulliam IG % 0.2 % Normal 0.0-0.5 [facility] Comment on above: Performed By: #### C BC ####[facility] Yvlxrjzrwf23[address] [place], [place] [address]DrAdalberto Pulliam LYMPH # 1.8 103/ul Normal 1.2-3.8 [facility] Comment on above: Performed By: #### C BC ####[facility] Zmgtvlhpkz260[address] [place], [place] [address]DrAdalberto Pulliam Lymphocytes/100 WBC (Bld) 18.3 % Critically low 20.5-60.0 [facility] Comment on above: Performed By: #### C BC ####[facility] Eygfouacda36[address] [place], [place] [address]DrAdalberto Pluliam MANUAL DIFF REQ NO Normal [facility] Comment on above: Performed By: #### C BC ####[facility] Biqmyksgsz4168 [place] [address]DrAdalberto Pulliam MCH (RBC) [Entitic mass] 30.5 pg Normal 25.9-34.0 [facility] Comment on above: Performed By: #### C BC ####[facility] Lodaflegqx6385 [place] [address]DrAdalberto Pulliam MCHC (RBC) [Mass/Vol] 33.4 g/dL Normal 29.9-35.2 [facility] Comment on above: Performed By: #### C BC ####[facility] Ccscmdkdyk2687 [place] [address]DrAdalberto Pulliam MCV (RBC) [Entitic vol] 91.2 fL Normal 80.0-94.0 [facility] Comment on above: Performed By: #### C BC ####[facility] Ahdnssnilm[address] [place], [place] [address]DrAdalberto Pulliam MONO # 0.8 103/ul Normal 0.3-0.8 [facility] Comment on above: Performed By: #### C BC ####[facility] Ciujesrnoy658[address] [place], [place] [address]DrAdalberto Pulliam Monocytes/100 WBC (Bld) 7.6 % Normal 1.7-12.0 [facility] Comment on above: Performed By: #### C BC ####[facility] Henjvfuhrb284[address] [place], [place] [address]DrAdalberto Pulliam NEUT # 7.0 103/ul Critically high 1.4-6.5 [facility] Comment on above: Performed By: #### C BC ####[facility] Kohngaougo4960[address] [place], [place] [address]DrAdalberto Pulliam Neutrophils/100 WBC (Bld) 71.2 % Normal 43.0-75.0 [facility] Comment on above: Performed By: #### C BC ####[facility] Kbbeecuyyz542[address] [place], [place] [address]DrAdalberto Pulliam Platelet mean volume (Bld) [Entitic vol] 8.9 fL Critically low 9.5-13.5 [facility] Comment on above: Performed By: #### C BC ####[facility] Aoixrzztmi75[address] [place], [place] [address]DrAdalberto Pulliam PLT 217 103/ul Normal 150-450 [facility] Comment on above: Performed By: #### C BC ####[facility] Zusbuyvftq9609 [place] [address]Dr. Garima Heraclio RBC 5.02 106/ul Normal 4.70-6.10 [facility] Comment on above: Performed By: #### C BC ####[facility] Qpaxkkrzlj070[address] [place], [place] [address]Dr. Garima Pulliam WBC 9.8 103/ul Normal 4.0-11.0 [facility] Comment on above: Performed By: #### C BC ####[facility] Afxtjsscgh7214[address] [place], [place] [address]Dr. Garima Heraclio CRPon 03-18-2023 CRP 0.1 mg/dL Normal <=1.0 [facility] Comment on above: Performed By: #### C RP ####[facility] Pfaadaeuyu7935[address] [place], [place] [address]Dr. Garima Heraclio PROF CHEM 8 (BAS METB)on Anion gap [Moles/Vol] 10.4 mmol/L Normal [facility] Comment on above: Performed By: #### B SHOVEL LOGGER, BMP ####[facility] Zvdpujpjmi025[address] [place], [place] [address]Dr. Garima Heraclio Calcium [Mass/Vol] 8.8 mg/dL Normal 8.5-10.1 [facility] Comment on above: Performed By: #### B SHOVEL LOGGER, BMP ####[facility] Bffgcppmlw38[address] [place], [place] [address]Dr. Garima Heraclio Chloride [Moles/Vol] 97 mmol/L Critically low 98-107 [facility] Comment on above: Performed By: #### B SHOVEL LOGGER, BMP ####[facility] Wbkuvicica40[address] [place], [place] [address]Dr. Garima Pulliam CO2 [Moles/Vol] 31.2 mmol/L Normal 21.0-32.0 [facility] Comment on above: Performed By: #### B SHOVEL LOGGER, BMP ####[facility] Lawfuhappn943[address] [place], [place] [address]Dr. Garima Pulliam Creatinine [Mass/Vol] 0.91 mg/dL Normal 0.70-1.30 [facility] Comment on above: Performed By: #### B SHOVEL LOGGER, BMP ####[facility] Auofdwxjll8[address] [place] [address]Dr. Garima Pulliam EGFR-AF IRANIAN >60 Normal >=60 [facility] Comment on above: Performed By: #### B SHOVEL LOGGER, BMP ####[facility] Hqgtjszgvy0833 [place] [id number]. Garima Pulliam EGFR-NON AF IRANIAN >60 Normal >=60 [facility] Comment on above: Performed By: #### B SHOVEL LOGGER, BMP ####[facility] Wmyzwshitp0662 [place] [address]Dr. Garima Pulliam Glucose [Mass/Vol] 315 mg/dL Critically high 74-106 T [facility] Comment on above: Performed By: #### B SHOVEL LOGGER, BMP ####[facility] Bzbyufaaiv1612 [place] [address]Dr. Garima Pulliam Potassium [Moles/Vol] 3.6 mmol/L Normal 3.5-5.1 [facility] Comment on above: Performed By: #### B SHOVEL LOGGER, BMP ####[facility] Sqttwnvdto4014 [place] [address]Dr. Garima Pulliam Sodium [Moles/Vol] 135 mmol/L Critically low 136-145 Th [facility] Comment on above: Performed By: #### B SHOVEL LOGGER, BMP ####[facility] Bbhqrwjjuu8442 [place] [address]Dr. Garima Pulliam Urea nitrogen [Mass/Vol] 7.0 mg/dL Normal 7.0-18.0 [facility] Comment on above: Performed By: #### B SHOVEL LOGGER, BMP ####[facility] Tpzyawpsce4[address] [place] [address]Dr. Garima Pulliam Urea nitrogen/Creatinine [Mass ratio] 7.7 mg/mg Normal [facility] Comment on above: Performed By: #### B SHOVEL LOGGER, BMP ####[facility] Ilsrodvprj4[address] [place] [address]Dr. Garima Pulliam SED RATE WESTERGRENon 2022 SED RATE 8 mm/hr Normal <=20 [facility] Comment on above: Performed By: #### S EDR ####[facility] Lrqjocbljr[address] [place], [place] [address]Dr. Garima Pulliam BNPon 03-16-2023 Natriuretic peptide B (Bld) [Mass/Vol] 241.0 pg/mL Normal <=900.0 [facility] Comment on above: Performed By: #### B SHOVEL LOGGER, BMP, HSTROPN ####[facility] Yzgtadnqay[address] [place], [place] [address]Dr. Garima Heraclio CBC AUTO DIFFon 03-16-2023 BASO # 0.0 103/ul Normal 0.0-0.1 [facility] Comment on above: Performed By: #### C BC ####[facility] Zsefsdsizf[address] [place], [place] [address]Dr. Chapisrenu Pulliam Basophils/100 WBC (Bld) 0.2 % Normal 0.2-2.0 [facility] Comment on above: Performed By: #### C BC ####[facility] Xdavrjkjai[address] [place], [place] [address]Dr. Garima Pulliam EO # 0.2 103/ul Normal 0.0-0.7 [facility] Comment on above: Performed By: #### C BC ####[facility] Tuzblxdtto98[address] [place], [place] [address]Dr. Chapisrenu Pulliam Eosinophils/100 WBC (Bld) 2.7 % Normal 0.9-7.0 [facility] Comment on above: Performed By: #### C BC ####[facility] Otqpazqzcz739[address] [place], [place] [address]Dr. Garima Pulliam Erythrocyte distribution width (RBC) [Ratio] 13.1 % Normal 11.0-15.0 [facility] Comment on above: Performed By: #### C BC ####[facility] Gzelqnljtq76[address] [place], [place] [address]Dr. Garima Pulliam Hematocrit (Bld) [Volume fraction] 41.8 % Critically low 42.0-54.0 [facility] Comment on above: Performed By: #### C BC ####[facility] Ex[address]wluher[address] [place] [address]Dr. Garima Pluliam Hemoglobin (Bld) [Mass/Vol] 14.0 g/dL Normal 14.0-18.0 [facility] Comment on above: Performed By: #### C BC ####[facility] Npcvtdpvxl46[address] [place] [address]Dr. Garima Pulliam IG # 0.03 10e3/ul Normal 0.00-0.03 [facility] Comment on above: Performed By: #### C BC ####[facility] Dpylpsifsf[address] [place] [address]Dr. Garima Pulliam IG % 0.3 % Normal 0.0-0.5 [facility] Comment on above: Performed By: #### C BC ####[facility] Zwmafzhrka[address] [place], [place] [address]Dr. Chapisrenu Pulliam LYMPH # 2.1 103/ul Normal 1.2-3.8 [facility] Comment on above: Performed By: #### C BC ####[facility] Cemrcypmny398[address] [place], [place] [address]Dr. Chapisrenu Pulliam Lymphocytes/100 WBC (Bld) 24.2 % Normal 20.5-60.0 [facility] Comment on above: Performed By: #### C BC ####[facility] Tzpjtggfgk[address] [place] [address]Dr. Garima Pulliam MANUAL DIFF REQ NO Normal [facility] Comment on above: Performed By: #### C BC ####[facility] Kwjdrwccuy62[address] [place] [address]Dr. Garima Pulliam MCH (RBC) [Entitic mass] 30.2 pg Normal 25.9-34.0 [facility] Comment on above: Performed By: #### C BC ####[facility] Tokjziichb7[address] [place] [address]Dr. Garima Pulliam MCHC (RBC) [Mass/Vol] 33.5 g/dL Normal 29.9-35.2 [facility] Comment on above: Performed By: #### C BC ####[facility] Sqegfboweo[address] [place] [address]Dr. Garima Pulliam MCV (RBC) [Entitic vol] 90.1 fL Normal 80.0-94.0 [facility] Comment on above: Performed By: #### C BC ####[facility] Fxbjezkvge2656 [place] [address]Dr. Garima Pulliam MONO # 0.6 103/ul Normal 0.3-0.8 [facility] Comment on above: Performed By: #### C BC ####[facility] Asxqhxaged70[address] [place] [address]Dr. Garima Heraclio Monocytes/100 WBC (Bld) 7.4 % Normal 1.7-12.0 [facility] Comment on above: Performed By: #### C BC ####[facility] Zwcqxvjunc334[address] [place], [place] [address]Dr. Garima Pulliam NEUT # 5.6 103/ul Normal 1.4-6.5 [facility] Comment on above: Performed By: #### C BC ####[facility] Btqfppydbd3416[address] [place], [place] [address]Dr. Garima Heraclio Neutrophils/100 WBC (Bld) 65.2 % Normal 43.0-75.0 [facility] Comment on above: Performed By: #### C BC ####[facility] Zvtqdpwmus9392 [place] [address]Dr. Garima Heraclio Platelet mean volume (Bld) [Entitic vol] 8.7 fL Critically low 9.5-13.5 [facility] Comment on above: Performed By: #### C BC ####[facility] F[address]jv[address]pcau[address] [place], [place] [address]Dr. Garima Heraclio PLT 195 103/ul Normal 150-450 [facility] Comment on above: Performed By: #### C BC ####[facility] Qhodgqhebw7916 [place] [address]Dr. Garima Pulliam RBC 4.64 106/ul Critically low 4.70-6.10 [facility] Comment on above: Performed By: #### C BC ####[facility] Kbckqkkhac8305 [place] [address]Dr. Garima Pulliam WBC 8.6 103/ul Normal 4.0-11.0 [facility] Comment on above: Performed By: #### C BC ####[facility] Hxqwssxdtm3507 [place] [address]Dr. Garima Pulliam PROF CHEM 8 (BAS METB)on Anion gap [Moles/Vol] 6.7 mmol/L Normal [facility] Comment on above: Performed By: #### B SHOVEL LOGGER, BMP, HSTROPN ####[facility] Lnncfduetm0301 [place] [address]Dr. Garima Pulliam Calcium [Mass/Vol] 8.8 mg/dL Normal 8.5-10.1 [facility] Comment on above: Performed By: #### B SHOVEL LOGGER, BMP, HSTROPN ####[facility] Jmovonbhxi478[address] [place], [place] [address]Dr. Garima Pulliam Chloride [Moles/Vol] 106 mmol/L Normal 98-107 [facility] Comment on above: Performed By: #### B SHOVEL LOGGER, BMP, HSTROPN ####[facility] Bvdvazpjji666[address] [place], [place] [address]Dr. Garima Pulliam CO2 [Moles/Vol] 31.4 mmol/L Normal 21.0-32.0 [facility] Comment on above: Performed By: #### B SHOVEL LOGGER, BMP, HSTROPN ####[facility] Ijzfqglmcg907[address] [place], [place] [address]Dr. Garima Pulliam Creatinine [Mass/Vol] 0.75 mg/dL Normal 0.70-1.30 [facility] Comment on above: Performed By: #### B SHOVEL LOGGER, BMP, HSTROPN ####[facility] Wuzgkpecsm5022 [place] [address]Dr. Garima Pulliam EGFR-AF IRANIAN >60 Normal >=60 [facility] Comment on above: Performed By: #### B SHOVEL LOGGER, BMP, HSTROPN ####[facility] Qfocajppbi1621 [place] [address]Dr. Garima Pulliam EGFR-NON AF IRANIAN >60 Normal >=60 [facility] Comment on above: Performed By: #### B SHOVEL LOGGER, BMP, HSTROPN ####[facility] Yabiokuvkr13[address] [place] [address]Dr. Garima Pulliam Glucose [Mass/Vol] 161 mg/dL Critically high 74-106 T [facility] Comment on above: Performed By: #### B SHOVEL LOGGER, BMP, HSTROPN ####[facility] Ybsbmwyabe5282 [place] [address]Dr. Garima Pulliam Potassium [Moles/Vol] 4.1 mmol/L Normal 3.5-5.1 [facility] Comment on above: Performed By: #### B SHOVEL LOGGER, BMP, HSTROPN ####[facility] Airlncdhle6692 [place] [address]Dr. Garima Pulliam Sodium [Moles/Vol] 140 mmol/L Normal 136-145 [facility] Comment on above: Performed By: #### B SHOVEL LOGGER, BMP, HSTROPN ####[facility] Fcbkwmjyfc6873 [place] [address]Dr. Garima Pulliam Urea nitrogen [Mass/Vol] 7.0 mg/dL Normal 7.0-18.0 [facility] Comment on above: Performed By: #### B SHOVEL LOGGER, BMP, HSTROPN ####[facility] Ohpopkrgfv0406 [place] [address]Dr. Garima Pulliam Urea nitrogen/Creatinine [Mass ratio] 9.3 mg/mg Normal [facility] Comment on above: Performed By: #### B SHOVEL LOGGER, BMP, HSTROPN ####[facility] Bxiuuikflg0[address] [place] [address]Dr. Garima Pulliam TROPONIN, HIGH SENSITIVITYon 03-16-2023 HSTROP 9.7 pg/mL Normal 4.0-76.1 [facility] Comment on above: Result Comment: CUT- OFF POINTS HAVE BEEN ESTABLISHED BASED ON THE FOURTH UNIVERSAL DEFINITIONS OF MYOCARDIALINFARCTION. THE UPPER REFERENCE LIMIT (URL) OF TROPONIN, DEFINED THE 99TH PERCENTILE OFcTnI DISTRIBUTION IN A REFERENCE POPULATION, HAS BEEN CONFIRMED THE DECISION THRESHOLDFOR MO DIAGNOSIS. Performed By: #### B SHOVEL LOGGER, BMP, HSTROPN ####[facility] Daowfvodoz9086 [place] [address]Dr. Garima Pulliam XR CHEST 1 Von 03-16-2023 XR CHEST 1 V Normal [facility] BNPon 03-06-2023 Natriuretic peptide B (Bld) [Mass/Vol] 111.0 pg/mL Normal <=900.0 [facility] Comment on above: Performed By: #### C MP, BNP, CK ####[facility] Mxerarvnzv3258 [place] [address]Dr. Chapisrenu Pulliam CBC AUTO DIFFon 03-06-2023 BASO # 0.0 103/ul Normal 0.0-0.1 [facility] Comment on above: Performed By: #### C BC ####[facility] Cjcbhjfddx[address] [place], [place] [address]Dr. Garima Pulliam Basophils/100 WBC (Bld) 0.2 % Normal 0.2-2.0 [facility] Comment on above: Performed By: #### C BC ####[facility] Cvzhxbblit7[address] [place], [place] [address]Dr. Garima Pulliam EO # 0.3 103/ul Normal 0.0-0.7 [facility] Comment on above: Performed By: #### C BC ####[facility] Aginmfwjeq120[address] [place], [place] [address]Dr. Garima Pulliam Eosinophils/100 WBC (Bld) 3.5 % Normal 0.9-7.0 [facility] Comment on above: Performed By: #### C BC ####[facility] Nqjnzorzgl028[address] [place], [place] [address]Dr. Garima Pulliam Erythrocyte distribution width (RBC) [Ratio] 13.3 % Normal 11.0-15.0 [facility] Comment on above: Performed By: #### C BC ####[facility] Hycszpvzom902[address] [place], [place] [address]Dr. Garima Pulliam Hematocrit (Bld) [Volume fraction] 43.7 % Normal 42.0-54.0 [facility] Comment on above: Performed By: #### C BC ####[facility] Zbffynyzgd9760 [place] [address]Dr. Garima Pulliam Hemoglobin (Bld) [Mass/Vol] 14.7 g/dL Normal 14.0-18.0 [facility] Comment on above: Performed By: #### C BC ####[facility] Smbpobqnqq5532 [place] [address]Dr. Chapisrenu Heraclio IG # 0.03 10e3/ul Normal 0.00-0.03 [facility] Comment on above: Performed By: #### C BC ####[facility] Mnvjtmzolp863[address] [place], [place] [address]Dr. Garima Pulliam IG % 0.4 % Normal 0.0-0.5 [facility] Comment on above: Performed By: #### C BC ####[facility] Jtuvroqyjq415[address] [place], [place] [address]Dr. Garima Pulliam LYMPH # 2.0 103/ul Normal 1.2-3.8 [facility] Comment on above: Performed By: #### C BC ####[facility] Xsaakjxjuv709[address] [place], [place] [address]DrAdalberto Pulliam Lymphocytes/100 WBC (Bld) 23.7 % Normal 20.5-60.0 [facility] Comment on above: Performed By: #### C BC ####[facility] Ktqxlzscad3294 [place] [address]Dr. Garima Pulliam MANUAL DIFF REQ NO Normal [facility] Comment on above: Performed By: #### C BC ####[facility] Agofyeimlq1238 [place] [address]DrAdalberto Pulliam MCH (RBC) [Entitic mass] 30.1 pg Normal 25.9-34.0 [facility] Comment on above: Performed By: #### C BC ####[facility] Hdjgyvycvu4276 [place] [address]Dr. Garima Pulliam MCHC (RBC) [Mass/Vol] 33.6 g/dL Normal 29.9-35.2 [facility] Comment on above: Performed By: #### C BC ####[facility] Jklbchrrxk8424 [place] [address]Dr. Garima Heraclio MCV (RBC) [Entitic vol] 89.4 fL Normal 80.0-94.0 [facility] Comment on above: Performed By: #### C BC ####[facility] Hhwqnowdll5164 [place] [address]Dr. Garima Pulliam MONO # 0.8 103/ul Normal 0.3-0.8 [facility] Comment on above: Performed By: #### C BC ####[facility] Bthzocfjuc6853 [place] [address]Dr. Garima Pulliam Monocytes/100 WBC (Bld) 9.0 % Normal 1.7-12.0 [facility] Comment on above: Performed By: #### C BC ####[facility] Xjtjywflyy348[address] [place], [place] [address]Dr. Garima Pulliam NEUT # 5.4 103/ul Normal 1.4-6.5 [facility] Comment on above: Performed By: #### C BC ####[facility] Kkbcflubug91[address] [place], [place] [address]Dr. Garima Pulliam Neutrophils/100 WBC (Bld) 63.2 % Normal 43.0-75.0 [facility] Comment on above: Performed By: #### C BC ####[facility] Rvhrkpkioj17[address] [place], [place] [address]Dr. Garima Pulliam Platelet mean volume (Bld) [Entitic vol] 9.0 fL Critically low 9.5-13.5 [facility] Comment on above: Performed By: #### C BC ####[facility] Sgpwzcuinz68[address] [place], [place] [address]Dr. Garima Pulliam PLT 218 103/ul Normal 150-450 [facility] Comment on above: Performed By: #### C BC ####[facility] Wguhaeitcd3819 [place] [address]Dr. Garima Pulliam RBC 4.89 106/ul Normal 4.70-6.10 [facility] Comment on above: Performed By: #### C BC ####[facility] Terihbxkus9839 [place] [address]Dr. Garima Pulliam WBC 8.5 103/ul Normal 4.0-11.0 [facility] Comment on above: Performed By: #### C BC ####[facility] Yjzylmaulv0910 [place] [address]Dr. Garima Pulliam CPKon 03-06-2023 CK [Catalytic activity/Vol] 191 U/L Normal 39-308 [facility] Comment on above: Performed By: #### C MP, BNP, CK ####[facility] Pkupyuhyqj4760 [place] [address]Dr. Garima Pulliam PROF 14(COMP METB)on 023 Albumin [Mass/Vol] 3.6 g/dL Normal 3.4-5.0 [facility] Comment on above: Performed By: #### C MP, BNP, CK ####[facility] Pxobsxkrsj6053 [place] [address]Dr. Garima Pulliam Albumin/Globulin [Mass ratio] 1.2 {ratio} Normal [facility] Comment on above: Performed By: #### C MP, BNP, CK ####[facility] Ieeznryerl4855 [place] [address]Dr. Garima Pulliam ALP [Catalytic activity/Vol] 91 U/L Normal 46-116 [facility] Comment on above: Performed By: #### C MP, BNP, CK ####[facility] Ukkebtbpxj0880 [place] [address]Dr. Garima Pulliam ALT [Catalytic activity/Vol] 33 U/L Normal 16-63 [facility] Comment on above: Performed By: #### C MP, BNP, CK ####[facility] Sdvjqmxvle2232 [place] [address]Dr. Garima Pulliam Anion gap [Moles/Vol] 10.3 mmol/L Normal [facility] Comment on above: Performed By: #### C MP, BNP, CK ####[facility] Wfwvsfehwu2065 [place] [address]Dr. Garima Pulliam AST [Catalytic activity/Vol] 17 U/L Normal 15-37 [facility] Comment on above: Performed By: #### C MP, BNP, CK ####[facility] Uzbtepjzmo0821 [place] [address]Dr. Garima Pulliam Bilirubin [Mass/Vol] 0.4 mg/dL Normal 0.2-1.0 [facility] Comment on above: Performed By: #### C MP, BNP, CK ####[facility] Btibdnjyex2371 [place] [address]Dr. Garima Pulliam Calcium [Mass/Vol] 9.1 mg/dL Normal 8.5-10.1 [facility] Comment on above: Performed By: #### C MP, BNP, CK ####[facility] Wxjcyizsba2430 [place] [address]Dr. Garima Pulliam Chloride [Moles/Vol] 102 mmol/L Normal 98-107 [facility] Comment on above: Performed By: #### C MP, BNP, CK ####[facility] Dvnhbhejfz9554 [place] [address]Dr. Garima Pulliam CO2 [Moles/Vol] 29.7 mmol/L Normal 21.0-32.0 [facility] Comment on above: Performed By: #### C MP, BNP, CK ####[facility] Prtertcnlc8321 [place] [address]Dr. Garima Pulliam Creatinine [Mass/Vol] 0.79 mg/dL Normal 0.70-1.30 [facility] Comment on above: Performed By: #### C MP, BNP, CK ####[facility] Afxkqsvopw8423 [place] [address]Dr. Garima Pulliam EGFR-AF IRANIAN >60 Normal >=60 [facility] Comment on above: Performed By: #### C MP, BNP, CK ####[facility] Ycvqxzoejv1588 [place] [address]Dr. Garima Pulliam EGFR-NON AF IRANIAN >60 Normal >=60 [facility] Comment on above: Performed By: #### C MP, BNP, CK ####[facility] Pfagisfubi5600 [place] [address]Dr. Garima Pulliam Globulin (S) [Mass/Vol] 3.0 g/dL Normal [facility] Comment on above: Performed By: #### C MP, BNP, CK ####[facility] Pdoyvlehtw3410 [place] [address]Dr. Garima Pulliam Glucose [Mass/Vol] 202 mg/dL Critically high 74-106 [facility] Comment on above: Performed By: #### C MP, BNP, CK ####[facility] Jeoxpokqbt0069 [place] [address]Dr. Garima Pulliam Potassium [Moles/Vol] 4.0 mmol/L Normal 3.5-5.1 [facility] Comment on above: Performed By: #### C MP, BNP, CK ####[facility] Erwpwjytyi2818 [place] [address]Dr. Garima Pulliam Protein [Mass/Vol] 6.6 g/dL Normal 6.4-8.2 [facility] Comment on above: Performed By: #### C MP, BNP, CK ####[facility] Adqvagjech[address] [place], [place] [address]Dr. Garima Pulliam Sodium [Moles/Vol] 138 mmol/L Normal 136-145 [facility] Comment on above: Performed By: #### C MP, BNP, CK ####[facility] Qkhmhgpvyj130[address] [place], [place] [address]Dr. Garima Pulliam Urea nitrogen [Mass/Vol] 10.0 mg/dL Normal 7.0-18.0 [facility] Comment on above: Performed By: #### C MP, BNP, CK ####[facility] Fhejeuuwav5755 [place] [address]Dr. Garima Pulliam Urea nitrogen/Creatinine [Mass ratio] 12.7 mg/mg Normal [facility] Comment on above: Performed By: #### C MP, BNP, CK ####[facility] Pcozdcvioa1163 [place] [address]Dr. Garima Pulliam US VERONICA DOP LEG BILon 023 US VERONICA DOP LEG BENOIT Normal [facility] CBC AUTO DIFFon 01-13-2023 BASO # 0.0 103/ul Normal 0.0-0.1 [facility] Comment on above: Performed By: #### C BC ####[facility] Hqsljpzijl7595 [place] [address]Dr. Chapisrenu Pulliam Basophils/100 WBC (Bld) 0.0 % Critically low 0.2-2.0 [facility] Comment on above: Performed By: #### C BC ####[facility] Ahmmtoyiyv6056 [place] [address]Dr. Garima Pulliam EO # 0.0 103/ul Normal 0.0-0.7 [facility] Comment on above: Performed By: #### C BC ####[facility] Gbupvtuqtu115[address] [place], [place] [address]Dr. Garima Pulliam Eosinophils/100 WBC (Bld) 0.0 % Critically low 0.9-7.0 [facility] Comment on above: Performed By: #### C BC ####[facility] Usrmlzpcct8588 [place] [address]Dr. Garima Pulliam Erythrocyte distribution width (RBC) [Ratio] 13.2 % Normal 11.0-15.0 [facility] Comment on above: Performed By: #### C BC ####[facility] Dqsunwepgw527[address] [place], [place] [address]Dr. Gairma Pulliam Hematocrit (Bld) [Volume fraction] 46.7 % Normal 42.0-54.0 [facility] Comment on above: Performed By: #### C BC ####[facility] Tlvyzuymnp660[address] [place], [place] [address]Dr. Garima Pulliam Hemoglobin (Bld) [Mass/Vol] 15.6 g/dL Normal 14.0-18.0 [facility] Comment on above: Performed By: #### C BC ####[facility] Wvzbyhtwme694[address] [place], [place] [address]Dr. Garima Pulliam IG # 0.01 10e3/ul Normal 0.00-0.03 [facility] Comment on above: Performed By: #### C BC ####[facility] Dswdvipkjj4174 [place] [address]Dr. Garima Pulliam IG % 0.2 % Normal 0.0-0.5 [facility] Comment on above: Performed By: #### C BC ####[facility] Oseohntdke2829 [place] [address]Dr. Garima Pulliam LYMPH # 0.8 103/ul Critically low 1.2-3.8 [facility] Comment on above: Performed By: #### C BC ####[facility] Awbextkwiv2863 [place] [address]Dr. Garima Pulliam Lymphocytes/100 WBC (Bld) 12.7 % Critically low 20.5-60.0 [facility] Comment on above: Performed By: #### C BC ####[facility] Bodvdqkfle3252 [place] [address]Dr. Garima Pulliam MANUAL DIFF REQ NO Normal [facility] Comment on above: Performed By: #### C BC ####[facility] Avacoqmxoz5256 [place] [address]Dr. Garima Pulliam MCH (RBC) [Entitic mass] 30.2 pg Normal 25.9-34.0 [facility] Comment on above: Performed By: #### C BC ####[facility] Aceztgrrlk3546 [place] [address]Dr. Garima Pulliam MCHC (RBC) [Mass/Vol] 33.4 g/dL Normal 29.9-35.2 [facility] Comment on above: Performed By: #### C BC ####[facility] Ikksouslpm7893 [place] [address]Dr. Garima Pulliam MCV (RBC) [Entitic vol] 90.3 fL Normal 80.0-94.0 [facility] Comment on above: Performed By: #### C BC ####[facility] Tvzuamyvfq2504 [place] [address]Dr. Garima Heraclio MONO # 0.1 103/ul Critically low 0.3-0.8 [facility] Comment on above: Performed By: #### C BC ####[facility] Jzdenfojce6846 [place] [address]Dr. Garima Pulliam Monocytes/100 WBC (Bld) 0.9 % Critically low 1.7-12.0 [facility] Comment on above: Performed By: #### C BC ####[facility] Rpmfyqxftb6220 [place] [address]Dr. Garima Pulliam NEUT # 5.6 103/ul Normal 1.4-6.5 [facility] Comment on above: Performed By: #### C BC ####[facility] Wpegjcjwke7571 [place] [address]Dr. Garima Pulliam Neutrophils/100 WBC (Bld) 86.2 % Critically high 43.0-75.0 [facility] Comment on above: Performed By: #### C BC ####[facility] Yjmwwweueb6276 [place] [address]Dr. Garima Pulliam Platelet mean volume (Bld) [Entitic vol] 9.1 fL Critically low 9.5-13.5 [facility] Comment on above: Performed By: #### C BC ####[facility] Yhtndqzrtq[address] [place], [place] [address]Dr. Garima Pulliam PLT 169 103/ul Normal 150-450 [facility] Comment on above: Performed By: #### C BC ####[facility] Qwbuxyfllr887[address] [place], [place] [address]Dr. Garima Pulliam RBC 5.17 106/ul Normal 4.70-6.10 [facility] Comment on above: Performed By: #### C BC ####[facility] [address]oviyidjhy[address] [place], [place] [address]Dr. Garima Pulliam WBC 6.5 103/ul Normal 4.0-11.0 [facility] Comment on above: Performed By: #### C BC ####[facility] Cxegvpexee663[address] [place], [place] [address]Dr. Garima Pulliam D-DIMERon 01-13-2023 D-DIMER 0.41 mg/L FEU Normal <=0.59 [facility] Comment on above: Performed By: #### D DIM ####[facility] Rzebiqdklw8935 [place] [address]Dr. Garima Pulliam D-DIMER COMMENTS SEE BELOW Normal [facility] Comment on above: Result Comment: Incr eases [...] Performed By: #### D DIM ####[facility] Lgoizitofx613[address] [place], [place] [address]Dr. Garima Pulliam PROF 14(COMP METB)on 023 Albumin [Mass/Vol] 3.4 g/dL Normal 3.4-5.0 [facility] Comment on above: Performed By: #### C MP ####[facility] Vwfmivslag04[address] [place], [place] [address]Dr. Garima Pulliam Albumin/Globulin [Mass ratio] 1.3 {ratio} Normal [facility] Comment on above: Performed By: #### C MP ####[facility] Hslggmxsdt713456 [address] [place], [place] [address]Dr. Garima Pulliam ALP [Catalytic activity/Vol] 83 U/L Normal 46-116 [facility] Comment on above: Performed By: #### C MP ####[facility] Aewugccudo[address] [place], [place] [address]Dr. Garima Pulliam ALT [Catalytic activity/Vol] 25 U/L Normal 16-63 [facility] Comment on above: Performed By: #### C MP ####[facility] Zkukxbbntq22[address] [place] [address]Dr. Garima Pulliam Anion gap [Moles/Vol] 14.5 mmol/L Normal [facility] Comment on above: Performed By: #### C MP ####[facility] Tbdepjvkgr079[address] [place], [place] [address]Dr. Garima Pulliam AST [Catalytic activity/Vol] 19 U/L Normal 15-37 [facility] Comment on above: Performed By: #### C MP ####[facility] Zsxjugsafp13[address] [place], [place] [address]Dr. Garima Pulliam Bilirubin [Mass/Vol] 0.4 mg/dL Normal 0.2-1.0 [facility] Comment on above: Performed By: #### C MP ####[facility] Rdaqaqnsky70[address] [place], [place] [address]Dr. Garima Pulliam Calcium [Mass/Vol] 8.7 mg/dL Normal 8.5-10.1 [facility] Comment on above: Performed By: #### C MP ####[facility] Hxypoowmzv489[address] [place], [place] [address]Dr. Garima Pulliam Chloride [Moles/Vol] 104 mmol/L Normal 98-107 [facility] Comment on above: Performed By: #### C MP ####[facility] Anxcjqijdi797[address] [place], [place] [address]Dr. Garima Pulliam CO2 [Moles/Vol] 24.5 mmol/L Normal 21.0-32.0 [facility] Comment on above: Performed By: #### C MP ####[facility] Mqfkoqtmjq389[address] [place], [place] [address]Dr. Garima Pulliam Creatinine [Mass/Vol] 0.70 mg/dL Normal 0.70-1.30 [facility] Comment on above: Performed By: #### C MP ####[facility] Zmwehuyllv176[address] [place], [place] [address]Dr. Garima Heraclio EGFR-AF IRANIAN >60 Normal >=60 [facility] Comment on above: Performed By: #### C MP ####[facility] Fvvotlvttv007[address] [place], [place] [address]Dr. Chapisrenu Heraclio EGFR-NON AF IRANIAN >60 Normal >=60 [facility] Comment on above: Performed By: #### C MP ####[facility] Dihmoowrkm1350[address] [place], [place] [address]Dr. Chapisrenu Pulliam Globulin (S) [Mass/Vol] 2.6 g/dL Normal [facility] Comment on above: Performed By: #### C MP ####[facility] Yrnmgbbzik9518 [place] [address]Dr. Garima Pulliam Glucose [Mass/Vol] 196 mg/dL Critically high 74-106 [facility] Comment on above: Performed By: #### C MP ####[facility] Lqjpeqceoi1743 [place] [address]Dr. Garima Pulliam Potassium [Moles/Vol] 4.0 mmol/L Normal 3.5-5.1 [facility] Comment on above: Performed By: #### C MP ####[facility] Jmvlxnpysk0133 [place] [address]Dr. Garima Pulliam Protein [Mass/Vol] 6.0 g/dL Critically low 6.4-8.2 [facility] Comment on above: Performed By: #### C MP ####[facility] Cpsxrriple167[address] [place], [place] [address]Dr. Garima Pulliam Sodium [Moles/Vol] 139 mmol/L Normal 136-145 [facility] Comment on above: Performed By: #### C MP ####[facility] Phgmsacpfr8795[address] [place], [place] [address]Dr. Garima Pulliam Urea nitrogen [Mass/Vol] 7.0 mg/dL Normal 7.0-18.0 [facility] Comment on above: Performed By: #### C MP ####[facility] Stgfytsjop615[address] [place], [place] [address]Dr. Garima Heraclio Urea nitrogen/Creatinine [Mass ratio] 10.0 mg/mg Normal [facility] Comment on above: Performed By: #### C MP ####[facility] Dvktyaenjv867[address] [place], [place] [address]Dr. Garima Heraclio BNPon 01-12-2023 Natriuretic peptide B (Bld) [Mass/Vol] 141.0 pg/mL Normal <=900.0 [facility] Comment on above: Performed By: #### C MP, BNP, HSTROPN ####[facility] Mcdeckuffw959[address] [place], [place] [address]Dr. Garima Heraclio CBC AUTO DIFFon 01-12-2023 BASO # 0.0 103/ul Normal 0.0-0.1 [facility] Comment on above: Performed By: #### C BC ####[facility] Miwzswcrfe9[address] [place] [address]Dr. Garima Heraclio Basophils/100 WBC (Bld) 0.2 % Normal 0.2-2.0 [facility] Comment on above: Performed By: #### C BC ####[facility] Puxfpdnyyr0503 [place] [address]Dr. Garima Heraclio EO # 0.2 103/ul Normal 0.0-0.7 [facility] Comment on above: Performed By: #### C BC ####[facility] Jtclljwnee1676 [place] [address]Dr. Garima Heraclio Eosinophils/100 WBC (Bld) 2.7 % Normal 0.9-7.0 [facility] Comment on above: Performed By: #### C BC ####[facility] Olbwfiuhrn997[address] [place], [place] [address]Dr. Garima Pulliam Erythrocyte distribution width (RBC) [Ratio] 13.3 % Normal 11.0-15.0 [facility] Comment on above: Performed By: #### C BC ####[facility] Fuvhodgaoc414[address] [place], [place] [address]Dr. Garima Pulliam Hematocrit (Bld) [Volume fraction] 42.3 % Normal 42.0-54.0 [facility] Comment on above: Performed By: #### C BC ####[facility] Kopntcscie[address] [place], [place] [address]Dr. Garima Pulliam Hemoglobin (Bld) [Mass/Vol] 14.3 g/dL Normal 14.0-18.0 [facility] Comment on above: Performed By: #### C BC ####[facility] Nutgaicpej190[address] [place], [place] [address]Dr. Garima Pulliam IG # 0.02 10e3/ul Normal 0.00-0.03 [facility] Comment on above: Performed By: #### C BC ####[facility] Ohvegfreoz70[address] [place] [address]Dr. Garima Pulliam IG % 0.2 % Normal 0.0-0.5 [facility] Comment on above: Performed By: #### C BC ####[facility] Feyopyjnmk2869 [place] [address]Dr. Garima Pulliam LYMPH # 2.6 103/ul Normal 1.2-3.8 [facility] Comment on above: Performed By: #### C BC ####[facility] Msvbggimmg1332 [place] [address]Dr. Garima Heraclio Lymphocytes/100 WBC (Bld) 29.6 % Normal 20.5-60.0 [facility] Comment on above: Performed By: #### C BC ####[facility] Szevhdwnpa9540 [place] [address]Dr. Garima Heraclio MANUAL DIFF REQ NO Normal [facility] Comment on above: Performed By: #### C BC ####[facility] Ladcmxeqcx5298 [place] [address]Dr. Garima Pulliam MCH (RBC) [Entitic mass] 30.2 pg Normal 25.9-34.0 [facility] Comment on above: Performed By: #### C BC ####[facility] Avguffoadk9118 [place] [address]Dr. Garima Pulliam MCHC (RBC) [Mass/Vol] 33.8 g/dL Normal 29.9-35.2 [facility] Comment on above: Performed By: #### C BC ####[facility] Ftqhalsxgu0191 [place] [address]Dr. Garima Pulliam MCV (RBC) [Entitic vol] 89.2 fL Normal 80.0-94.0 [facility] Comment on above: Performed By: #### C BC ####[facility] Xbuybsqlgi826[address] [place], [place] [address]Dr. Chapisrenu Pulliam MONO # 0.7 103/ul Normal 0.3-0.8 [facility] Comment on above: Performed By: #### C BC ####[facility] Kfidqsalnm4983 [place] [address]Dr. Garima Pulliam Monocytes/100 WBC (Bld) 8.3 % Normal 1.7-12.0 [facility] Comment on above: Performed By: #### C BC ####[facility] Wcngzcsevh0185 [place] [address]Dr. Garima Pulliam NEUT # 5.1 103/ul Normal 1.4-6.5 [facility] Comment on above: Performed By: #### C BC ####[facility] Dxszfzvdww1289 [place] [address]Dr. Garima Pulliam Neutrophils/100 WBC (Bld) 59.0 % Normal 43.0-75.0 [facility] Comment on above: Performed By: #### C BC ####[facility] Opfnetrdpi9846 [place] [address]Dr. Garima Pulliam Platelet mean volume (Bld) [Entitic vol] 8.7 fL Critically low 9.5-13.5 [facility] Comment on above: Performed By: #### C BC ####[facility] Jjhicbvzzo6839 [place] [address]Dr. Garima Pulliam PLT 182 103/ul Normal 150-450 [facility] Comment on above: Performed By: #### C BC ####[facility] Xdparukbij4331 [place] [address]Dr. Garima Pulliam RBC 4.74 106/ul Normal 4.70-6.10 [facility] Comment on above: Performed By: #### C BC ####[facility] Tsmzutqpby[address] [place], [place] [address]Dr. Garima Pulliam WBC 8.7 103/ul Normal 4.0-11.0 [facility] Comment on above: Performed By: #### C BC ####[facility] Wgsbrindmt730[address] [place], [place] [address]Dr. Garima Pulliam Covid-19 PCR (CVDTB)on 12-25 SARS-CoV-2 (COVID-19) RNA MARIE+probe Ql (Unsp spec) Not detected Normal NOT DETECTED [facility] Comment on above: Result Comment: When [...] for this test is supported by the [place] of Health and Human Service's declaration that [...] Performed By: #### C VDTBH ####[facility] Wkocfvirji99[address] [place] [address]Dr. Garima Pulliam PROF 14(COMP METB)on 023 Albumin [Mass/Vol] 3.6 g/dL Normal 3.4-5.0 [facility] Comment on above: Performed By: #### C MP, BNP, HSTROPN ####[facility] Axgndgypnq7707 [place] [address]Dr. Garima Pulliam Albumin/Globulin [Mass ratio] 1.5 {ratio} Normal [facility] Comment on above: Performed By: #### C MP, BNP, HSTROPN ####[facility] Cyhkdoiafk9067 [place] [address]Dr. Garima Pulliam ALP [Catalytic activity/Vol] 79 U/L Normal 46-116 [facility] Comment on above: Performed By: #### C MP, BNP, HSTROPN ####[facility] Pnseexhris5417 [place] [address]Dr. Garima Pulliam ALT [Catalytic activity/Vol] 27 U/L Normal 16-63 [facility] Comment on above: Performed By: #### C MP, BNP, HSTROPN ####[facility] Jhbgvwixiy[address] [place] [address]Dr. Garima Pulliam Anion gap [Moles/Vol] 11.7 mmol/L Normal [facility] Comment on above: Performed By: #### C MP, BNP, HSTROPN ####[facility] Sprwveeojf4430 [place] [address]Dr. Garima Pulliam AST [Catalytic activity/Vol] 21 U/L Normal 15-37 [facility] Comment on above: Performed By: #### C MP, BNP, HSTROPN ####[facility] Caprpbqmfx7593 [place] [address]Dr. Garima Pulliam Bilirubin [Mass/Vol] 0.3 mg/dL Normal 0.2-1.0 [facility] Comment on above: Performed By: #### C MP, BNP, HSTROPN ####[facility] Oxfmwpgupc5272 [place] [address]Dr. Garima Pulliam Calcium [Mass/Vol] 8.9 mg/dL Normal 8.5-10.1 [facility] Comment on above: Performed By: #### C MP, BNP, HSTROPN ####[facility] Gengdvyjhe48[address] [place] [address]Dr. Garima Pulliam Chloride [Moles/Vol] 107 mmol/L Normal 98-107 [facility] Comment on above: Performed By: #### C MP, BNP, HSTROPN ####[facility] Tzuvgxbesj5208 [place] [address]Dr. Garima Pulliam CO2 [Moles/Vol] 26.0 mmol/L Normal 21.0-32.0 [facility] Comment on above: Performed By: #### C MP, BNP, HSTROPN ####[facility] Ofuaueutbu7415 [place] [address]Dr. Garima Pulliam Creatinine [Mass/Vol] 0.65 mg/dL Critically low 0.70-1.30 [facility] Comment on above: Performed By: #### C MP, BNP, HSTROPN ####[facility] Jlculjrvdt3722 [place] [address]Dr. Yilan Pulliam EGFR-AF IRANIAN >60 Normal >=60 [facility] Comment on above: Performed By: #### C MP, BNP, HSTROPN ####[facility] Iqqxwtmdrg7312 [place] [address]Dr. Garima Pulliam EGFR-NON AF IRANIAN >60 Normal >=60 [facility] Comment on above: Performed By: #### C MP, BNP, HSTROPN ####[facility] Pkljhqczoh2125 [place] [address]Dr. Garima Pulliam Globulin (S) [Mass/Vol] 2.4 g/dL Normal [facility] Comment on above: Performed By: #### C MP, BNP, HSTROPN ####[facility] Ekghppqrjf47[address] [place], [place] [address]Dr. Garima Pulliam Glucose [Mass/Vol] 85 mg/dL Normal 74-106 [facility] Comment on above: Performed By: #### C MP, BNP, HSTROPN ####[facility] Vctfynmkbs8085 [place] [address]Dr. Garima Pulliam Potassium [Moles/Vol] 3.7 mmol/L Normal 3.5-5.1 [facility] Comment on above: Performed By: #### C MP, BNP, HSTROPN ####[facility] Sibsfiamhm2739 [place] [address]Dr. Garima Pulliam Protein [Mass/Vol] 6.0 g/dL Critically low 6.4-8.2 [facility] Comment on above: Performed By: #### C MP, BNP, HSTROPN ####[facility] Zmqwslmlcc5303 [place] [address]Dr. Garima Pulliam Sodium [Moles/Vol] 141 mmol/L Normal 136-145 [facility] Comment on above: Performed By: #### C MP, BNP, HSTROPN ####[facility] Gqfxuhbzjt5977 [place] [address]Dr. Garima Pulliam Urea nitrogen [Mass/Vol] 5.0 mg/dL Critically low 7.0-18.0 [facility] Comment on above: Performed By: #### C MP, BNP, HSTROPN ####[facility] Enpqyvzbpt6051 [place] [address]Dr. Garima Pulliam Urea nitrogen/Creatinine [Mass ratio] 7.7 mg/mg Normal [facility] Comment on above: Performed By: #### C MP, BNP, HSTROPN ####[facility] Markcsxoky9577 [place] [address]Dr. Garima Pulliam PROTIMEon 01-12-2023 INR Coag (PPP) [Relative time] 1.16 {INR} Normal [facility] Comment on above: Performed By: #### P TT, PT ####[facility] Xkslpiygdj2777 [place] [address]Dr. Garima Pulliam INR GUIDELINES SEE BELOW Normal [facility] Comment on above: Result Comment: WESLEY RED INR: 2.0 - 3.0 CONDITIONS NOT LISTED BELOW 2.5 - 3.5 FOR PROSTHETIC HEART VALVE REPLACEMENT 2.5 - 3.5 RECURRENT THROMBOSIS Performed By: #### P TT, PT ####[facility] Xsjhzyemra122[address] [place], [place] [address]Dr. Garima Pulliam PT Coag (PPP) [Time] 12.2 s Critically high 9.0-11.6 [facility] Comment on above: Performed By: #### P TT, PT ####[facility] Vwoqhlysjc7772 [place] [address]Dr. Garima Pulliam PTTon 01-12-2023 aPTT Coag (Bld) [Time] 29.1 s Normal 22.3-36.2 [facility] Comment on above: Performed By: #### P TT, PT ####[facility] Lmcfnoqxkj[address] [place], [place] [address]Dr. Garima Pulliam TROPONIN, HIGH SENSITIVITYon 01-12-2023 HSTROP 10.3 pg/mL Normal 4.0-76.1 [facility] Comment on above: Result Comment: CUT- OFF POINTS HAVE BEEN ESTABLISHED BASED ON THE FOURTH UNIVERSAL DEFINITIONS OF MYOCARDIALINFARCTION. THE UPPER REFERENCE LIMIT (URL) OF TROPONIN, DEFINED THE 99TH PERCENTILE OFcTnI DISTRIBUTION IN A REFERENCE POPULATION, HAS BEEN CONFIRMED THE DECISION THRESHOLDFOR MO DIAGNOSIS. Performed By: #### H STROPN ####[facility] Iqqsdgvgsz2428 [place] [address]Dr. Garima Pulliam HSTROP 9.2 pg/mL Normal 4.0-76.1 [facility] Comment on above: Result Comment: CUT- OFF POINTS HAVE BEEN ESTABLISHED BASED ON THE FOURTH UNIVERSAL DEFINITIONS OF MYOCARDIALINFARCTION. THE UPPER REFERENCE LIMIT (URL) OF TROPONIN, DEFINED THE 99TH PERCENTILE OFcTnI DISTRIBUTION IN A REFERENCE POPULATION, HAS BEEN CONFIRMED THE DECISION THRESHOLDFOR MO DIAGNOSIS. Performed By: #### C MP, BNP, HSTROPN ####[facility] Iiujzzkeag3730 [place] [address]Dr. Garima Pulliam XR CHEST 1 Von 01-12-2023 XR CHEST 1 V Normal [facility] XR CHEST 1 Von 01-01-2023 XR CHEST 1 V Normal [facility] CARDIAC NASH 3-6on 3 CK [Catalytic activity/Vol] 196 U/L Normal 39-308 [facility] Comment on above: Performed By: #### C MREP ####[facility] Psqsavpwvv7322 [place] [address]Dr. Garima Pulliam CK.MB [Mass/Vol] 7.41 ng/mL Critically high <=3.60 [facility] Comment on above: Performed By: #### C MREP ####[facility] Avaermyigs9014 [place] [address]Dr. Garima Pulliam HSTROP 10.3 pg/mL Normal 4.0-76.1 [facility] Comment on above: Result Comment: CUT- OFF POINTS HAVE BEEN ESTABLISHED BASED ON THE FOURTH UNIVERSAL DEFINITIONS OF MYOCARDIALINFARCTION. THE UPPER REFERENCE LIMIT (URL) OF TROPONIN, DEFINED THE 99TH PERCENTILE OFcTnI DISTRIBUTION IN A REFERENCE POPULATION, HAS BEEN CONFIRMED THE DECISION THRESHOLDFOR MO DIAGNOSIS. Performed By: #### C MREP ####[facility] Vumiuqzqsr6387 [place] [id number]. Garima Pulliam XR CHEST 1 Von 12-26-2022 XR CHEST 1 V Normal [facility] BNPon 12-25-2022 Natriuretic peptide B (Bld) [Mass/Vol] 98.0 pg/mL Normal <=900.0 [facility] Comment on above: Performed By: #### B MARVIN FRENCH CMADM ####[facility] Cqnejywikk4779 [place] [address]Dr. Garima Pulliam CARDIAC NASH ADMITon 023 CK [Catalytic activity/Vol] 208 U/L Normal 39-308 [facility] Comment on above: Performed By: #### B MARVIN FRENCH CMADM ####[facility] Byplieppte3022 [place] [address]Dr. Garima Pulliam CK.MB [Mass/Vol] 7.63 ng/mL Critically high <=3.60 [facility] Comment on above: Performed By: #### B MARVIN FRENCH CMADM ####[facility] Fjwwxvaeqr12[address] [place], [place] [address]Dr. Garima Pulliam HSTROP 8.8 pg/mL Normal 4.0-76.1 [facility] Comment on above: Result Comment: CUT- OFF POINTS HAVE BEEN ESTABLISHED BASED ON THE FOURTH UNIVERSAL DEFINITIONS OF MYOCARDIALINFARCTION. THE UPPER REFERENCE LIMIT (URL) OF TROPONIN, DEFINED THE 99TH PERCENTILE OFcTnI DISTRIBUTION IN A REFERENCE POPULATION, HAS BEEN CONFIRMED THE DECISION THRESHOLDFOR MO DIAGNOSIS. Performed By: #### B MARVIN FRENCH CMADM ####[facility] Jrdimkardm7811[address] [place], [place] [address]Dr. Garima Pulliam DORIS 83 ng/mL Normal 16-96 [facility] Comment on above: Performed By: #### B MARVIN FRENCH CMADM ####[facility] Tuppprycuu917[address] [place], [place] [address]Dr. Garima Pulliam CBC AUTO DIFFon 12-25-2022 BASO # 0.0 103/ul Normal 0.0-0.1 [facility] Comment on above: Performed By: #### C BC ####[facility] Ppdomkwgzn560[address] [place], [place] [address]Dr. Garima Pulliam Basophils/100 WBC (Bld) 0.0 % Critically low 0.2-2.0 [facility] Comment on above: Performed By: #### C BC ####[facility] Cftdpksbdv4307 [place] [address]Dr. Garima Pulliam EO # 0.0 103/ul Normal 0.0-0.7 [facility] Comment on above: Performed By: #### C BC ####[facility] Blkmaptxkc0860[address] [place], [place] [address]Dr. Garima Pulliam Eosinophils/100 WBC (Bld) 0.7 % Critically low 0.9-7.0 [facility] Comment on above: Performed By: #### C BC ####[facility] Qyiqzvwhnr587[address] [place], [place] [address]Dr. Garima Pulliam Erythrocyte distribution width (RBC) [Ratio] 13.4 % Normal 11.0-15.0 [facility] Comment on above: Performed By: #### C BC ####[facility] Hfptzwcgzz975[address] [place], [place] [address]Dr. Garima Pulliam Hematocrit (Bld) [Volume fraction] 42.9 % Normal 42.0-54.0 [facility] Comment on above: Performed By: #### C BC ####[facility] Ksbtkoczxb54[address] [place], [place] [address]Dr. Garima Pulliam Hemoglobin (Bld) [Mass/Vol] 14.4 g/dL Normal 14.0-18.0 [facility] Comment on above: Performed By: #### C BC ####[facility] Trxgvddady624[address] [place], [place] [address]Dr. Garima Pulliam IG # 0.00 10e3/ul Normal 0.00-0.03 [facility] Comment on above: Performed By: #### C BC ####[facility] Svntmcacck855[address] [place], [place] [address]Dr. Garima Pulliam IG % 0.0 % Normal 0.0-0.5 [facility] Comment on above: Performed By: #### C BC ####[facility] Jmkruhsznj3660[address] [place], [place] [address]Dr. Garima Pulliam LYMPH # 2.4 103/ul Normal 1.2-3.8 [facility] Comment on above: Performed By: #### C BC ####[facility] Suunyuvkhf9012 [place] [address]Dr. Chapisrenu Pulliam Lymphocytes/100 WBC (Bld) 29.2 % Normal 20.5-60.0 [facility] Comment on above: Performed By: #### C BC ####[facility] Ppoftarwrf9256 [place] [address]Dr. Garima Pulliam MANUAL DIFF REQ NO Normal [facility] Comment on above: Performed By: #### C BC ####[facility] Htfsqreabs2108 [place] [address]Dr. Garima Pulliam MCH (RBC) [Entitic mass] 30.7 pg Normal 25.9-34.0 [facility] Comment on above: Performed By: #### C BC ####[facility] Latpskwqtq004[address] [place], [place] [address]Dr. Garima Pulliam MCHC (RBC) [Mass/Vol] 33.6 g/dL Normal 29.9-35.2 [facility] Comment on above: Performed By: #### C BC ####[facility] Clnktwpxjn859[address] [place], [place] [address]Dr. Garima Pulliam MCV (RBC) [Entitic vol] 91.5 fL Normal 80.0-94.0 [facility] Comment on above: Performed By: #### C BC ####[facility] Kgydnmuqxk8[address] [place], [place] [address]Dr. Garima Pulliam MONO # 0.0 103/ul Critically low 0.3-0.8 [facility] Comment on above: Performed By: #### C BC ####[facility] Hppxlxiwyk2821 [place] [address]Dr. Garima Pulliam Monocytes/100 WBC (Bld) 8.0 % Normal 1.7-12.0 [facility] Comment on above: Performed By: #### C BC ####[facility] Gnnqrtuzst152[address] [place], [place] [address]Dr. Garima Pulliam NEUT # 5.1 103/ul Normal 1.4-6.5 [facility] Comment on above: Performed By: #### C BC ####[facility] Tijvefuump8089 [place], [place] [address]Qh. Garima Pulliam Neutrophils/100 WBC (Bld) 62.8 % Normal 43.0-75.0 [facility] Comment on above: Performed By: #### C BC ####[facility] Gezgfodowk4330 [place], [place] [address]Up. Garima Pulliam Platelet mean volume (Bld) [Entitic vol] 8.6 fL Critically low 9.5-13.5 [facility] Comment on above: Performed By: #### C BC ####[facility] Qyvumrsfmw6985 [place] [address]Dr. Garima Pulliam PLT 200 103/ul Normal 150-450 [facility] Comment on above: Performed By: #### C BC ####[facility] Rqhpvuuhqx5543 [place] [address]Dr. Garima Pulliam RBC 4.69 106/ul Critically low 4.70-6.10 [facility] Comment on above: Performed By: #### C BC ####[facility] Aefnddtkfq1731 [place], [place] [address]Wj. Garima Pulliam WBC 8.2 103/ul Normal 4.0-11.0 [facility] Comment on above: Performed By: #### C BC ####[facility] Fyiekkojqb3261 [place], [place] [address]Ni. Garima Pulliam [facility]on SARS-CoV-2 (COVID-19) RNA MARIE+probe Ql (Unsp spec) Not detected Normal NOT DETECTED [facility] Comment on above: Result Comment: When [...] for this test is supported by the [place] of Health and Human Service's declaration that [...] Performed By: #### C VDTBH ####[facility] [address]clczkqtja[address] [place] [id number]. Garima Pulliam INFLUENZA A AND B AGon 12-25 INFLUANEGH SEE BELOW Normal [facility] Comment on above: Result Comment: Nega tive for Flu A protein angiten. Infection due to Flu A cannot be ruled out. Flu A angiten in the sample may be below the detection limit of the test. Performed By: #### I NFLUAB ####[facility] Xislsjkghh[address] [place], [place] [address]Dr. Garima Pulliam INFLUBNEGH SEE BELOW Normal [facility] Comment on above: Result Comment: Nega tive for Flu B protein antigen. Infection due to Flu B cannot be ruled out. Flu B antigen in the sample may be below the detection limit of the test. Performed By: #### I NFLUAB ####[facility] Kgmaxztjzq[address] [place], [place] [address]Dr. Garima Pulliam INFLUENZA A AG Negative Normal NEGATIVE SEE COMMENT [facility] Comment on above: Performed By: #### I NFLUAB ####[facility] Amnzkepdmh206[address] [place], [place] [address]Dr. renu [facility] INFLUENZA B AG Negative Normal NEGATIVE SEE COMMENT [facility] Comment on above: Performed By: #### I NFLUAB ####[facility] Xhyestkzks438[address] [place], [place] [address]Dr. Garima Pulliam PROF CHEM 8 (BAS METB)on Anion gap [Moles/Vol] 11.1 mmol/L Normal [facility] Comment on above: Performed By: #### B SHOVEL LOGGER, BMP, CMADM ####[facility] Nuuxxcocwj5616[address] [place], [place] [address]Dr. Garima Pulliam Calcium [Mass/Vol] 8.5 mg/dL Normal 8.5-10.1 [facility] Comment on above: Performed By: #### B SHOVEL LOGGER, MARVIN, CMADM ####[facility] [address] [place] [id number]. Garima Pulliam Chloride [Moles/Vol] 106 mmol/L Normal 98-107 [facility] Comment on above: Performed By: #### B SHOVEL LOGGER, BMP, CMADM ####[facility] Daidcomhql[address] [place] [address]Dr. Garima Pulliam CO2 [Moles/Vol] 27.4 mmol/L Normal 21.0-32.0 [facility] Comment on above: Performed By: #### B SHOVEL LOGGER, MARVIN, CMADM ####[facility] Vdmlncwtnn16[address] [place] [address]Dr. Garima Pulliam Creatinine [Mass/Vol] 0.65 mg/dL Critically low 0.70-1.30 [facility] Comment on above: Performed By: #### B SHOVEL LOGGER, MARVIN, CMADM ####[facility] Dsrjpvrxng[address] [place] [address]Dr. Garima Pulliam EGFR-AF IRANIAN >60 Normal >=60 [facility] Comment on above: Performed By: #### B SHOVEL LOGGER, BMP, CMADM ####[facility] Kjzcvhsapd8946 [place] [address]Dr. Garima Pulliam EGFR-NON AF IRANIAN >60 Normal >=60 [facility] Comment on above: Performed By: #### B SHOVEL LOGGER, BMP, CMADM ####[facility] Bkcjsllplb399[address] [place] [address]Dr. Garima Pulliam Glucose [Mass/Vol] 140 mg/dL Critically high 74-106 [facility] Comment on above: Performed By: #### B SHOVEL LOGGER, BMP, CMADM ####[facility] Kjubqvoxry0486 [place] [address]Dr. Garima Pulliam Potassium [Moles/Vol] 3.5 mmol/L Normal 3.5-5.1 [facility] Comment on above: Performed By: #### B SHOVEL LOGGER, BMP, CMADM ####[facility] Myyendanhk4[address] [place] [address]Dr. Garima Pulliam Sodium [Moles/Vol] 141 mmol/L Normal 136-145 [facility] Comment on above: Performed By: #### B SHOVEL LOGGER, BMP, CMADM ####[facility] Vnikcpokll2930 [place] [address]Dr. Garima Pulliam Urea nitrogen [Mass/Vol] 8.0 mg/dL Normal 7.0-18.0 [facility] Comment on above: Performed By: #### B SHOVEL LOGGER, BMP, CMADM ####[facility] Xtndesfrsp23[address] [place] [address]Dr. Garima Pulliam Urea nitrogen/Creatinine [Mass ratio] 12.3 mg/mg Normal [facility] Comment on above: Performed By: #### B SHOVEL LOGGER, BMP, CMADM ####[facility] Enzdwinfdm347[address] [place], [place] [address]Dr. Garima Pulliam CARDIAC NASH ADMITon 023 CK [Catalytic activity/Vol] 165 U/L Normal 39-308 [facility] Comment on above: Performed By: #### B DAVID, CMADM ####[facility] Gxlnagrrdo525[address] [place], [place] [address]Dr. Garima Pulliam CK.MB [Mass/Vol] 6.48 ng/mL Critically high <=3.60 [facility] Comment on above: Performed By: #### B MP, CMADM ####[facility] Fvqldcwsoq144[address] [place], [place] [address]Dr. Garima Pulliam HSTROP 11.7 pg/mL Normal 4.0-76.1 [facility] Comment on above: Result Comment: CUT- OFF POINTS HAVE BEEN ESTABLISHED BASED ON THE FOURTH UNIVERSAL DEFINITIONS OF MYOCARDIALINFARCTION. THE UPPER REFERENCE LIMIT (URL) OF TROPONIN, DEFINED THE 99TH PERCENTILE OFcTnI DISTRIBUTION IN A REFERENCE POPULATION, HAS BEEN CONFIRMED THE DECISION THRESHOLDFOR MO DIAGNOSIS. Performed By: #### B MP, CMADM ####[facility] Suhpdidqtr027[address] [place], [place] [address]Dr. Garima Pulliam DORIS 83 ng/mL Normal 16-96 [facility] Comment on above: Performed By: #### B MP, CMADM ####[facility] Kjurafwsra6663 [place] [address]Dr. Garima Pulliam CBC AUTO DIFFon 12-10-2022 BASO # 0.0 103/ul Normal 0.0-0.1 [facility] Comment on above: Performed By: #### C BC ####[facility] Pqougwgldm65[address] [place], [place] [address]Dr. Garima Heraclio Basophils/100 WBC (Bld) 0.3 % Normal 0.2-2.0 [facility] Comment on above: Performed By: #### C BC ####[facility] Irlqirmkgu095[address] [place], [place] [address]Dr. Garima Pulliam EO # 0.1 103/ul Normal 0.0-0.7 [facility] Comment on above: Performed By: #### C BC ####[facility] Nmfwksrhvz26[address] [place], [place] [address]Dr. Garima Pulliam Eosinophils/100 WBC (Bld) 0.4 % Critically low 0.9-7.0 [facility] Comment on above: Performed By: #### C BC ####[facility] Oflphodlqw020[address] [place], [place] [address]Dr. Garima Pulliam Erythrocyte distribution width (RBC) [Ratio] 13.2 % Normal 11.0-15.0 [facility] Comment on above: Performed By: #### C BC ####[facility] Smocifcnbz809[address] [place], [place] [address]Dr. Garima Pulliam Hematocrit (Bld) [Volume fraction] 42.4 % Normal 42.0-54.0 [facility] Comment on above: Performed By: #### C BC ####[facility] Oyfhqgzayz53[address] [place], [place] [address]Dr. Garima Pulliam Hemoglobin (Bld) [Mass/Vol] 14.4 g/dL Normal 14.0-18.0 [facility] Comment on above: Performed By: #### C BC ####[facility] Xzhvgtqetd2148 [place] [id number]. Garima Heraclio IG # 0.05 10e3/ul Critically high 0.00-0.03 [facility] Comment on above: Performed By: #### C BC ####[facility] Fxugrtufdh0279 [place] [address]Dr. Garima Heraclio IG % 0.4 % Normal 0.0-0.5 [facility] Comment on above: Performed By: #### C BC ####[facility] Ofbaejptay936[address] [place], [place] [address]Dr. Garima Pulliam LYMPH # 0.8 103/ul Critically low 1.2-3.8 [facility] Comment on above: Performed By: #### C BC ####[facility] Okwxbstsgf866056 [address] [place], [place] [address]Dr. Chapisrenu Pulliam Lymphocytes/100 WBC (Bld) 6.5 % Critically low 20.5-60.0 [facility] Comment on above: Performed By: #### C BC ####[facility] Buxnxvwqzq5[address] [place], [place] [address]Dr. Chapisrenu Pulliam MANUAL DIFF REQ NO Normal [facility] Comment on above: Performed By: #### C BC ####[facility] Aohkazyfsy704[address] [place], [place] [address]DrAdalberto Garima Pulliam MCH (RBC) [Entitic mass] 30.5 pg Normal 25.9-34.0 [facility] Comment on above: Performed By: #### C BC ####[facility] Oqcrqddqeb7[address] [place], [place] [address]DrAdalberto Garima Heraclio MCHC (RBC) [Mass/Vol] 34.0 g/dL Normal 29.9-35.2 [facility] Comment on above: Performed By: #### C BC ####[facility] Jmopsiuvmb[address] [place], [place] [address]DrAdalberto Garima Heraclio MCV (RBC) [Entitic vol] 89.8 fL Normal 80.0-94.0 [facility] Comment on above: Performed By: #### C BC ####[facility] Vnfcmquswj297[address] [place], [place] [address]Dr. Garima Pulliam MONO # 0.2 103/ul Critically low 0.3-0.8 [facility] Comment on above: Performed By: #### C BC ####[facility] Rpstzyznsp7254 [place] [address]Dr. Garima Pulliam Monocytes/100 WBC (Bld) 2.0 % Normal 1.7-12.0 [facility] Comment on above: Performed By: #### C BC ####[facility] Whtpvfiqvy9488 [place] [address]Dr. Chapisrenu Heraclio NEUT # 10.5 103/ul Critically high 1.4-6.5 [facility] Comment on above: Performed By: #### C BC ####[facility] Loefzywpsy8496 [place] [address]Dr. Garima Pulliam Neutrophils/100 WBC (Bld) 90.4 % Critically high 43.0-75.0 [facility] Comment on above: Performed By: #### C BC ####[facility] Gvykrrdwkf5007 [place] [address]Dr. Garima Pulliam Platelet mean volume (Bld) [Entitic vol] 9.4 fL Critically low 9.5-13.5 [facility] Comment on above: Performed By: #### C BC ####[facility] [address]vrlilvj[address] [place] [address]Dr. Garima Pulliam PLT 198 103/ul Normal 150-450 [facility] Comment on above: Performed By: #### C BC ####[facility] Aqssxztfph7747 [place] [address]Dr. Garima Pulliam RBC 4.72 106/ul Normal 4.70-6.10 [facility] Comment on above: Performed By: #### C BC ####[facility] Gkgeuyxumu9207 [place] [address]Dr. Garima Pulliam WBC 11.6 103/ul Critically high 4.0-11.0 [facility] Comment on above: Performed By: #### C BC ####[facility] Nkblyonogt8795 [place] [address]DrAdalberto Pulliam PROF CHEM 8 (BAS METB)on Anion gap [Moles/Vol] 11.3 mmol/L Normal [facility] Comment on above: Performed By: #### B NANCY HERNANDEZ ####[facility] Lrtrndggfr3879 [place] [address]Dr. Garima Pulliam Calcium [Mass/Vol] 8.9 mg/dL Normal 8.5-10.1 [facility] Comment on above: Performed By: #### B NANCY HERNANDEZ ####[facility] Rfvnsggrzu4320 [place] [address]Dr. Garima Pulliam Chloride [Moles/Vol] 103 mmol/L Normal 98-107 [facility] Comment on above: Performed By: #### B NANCY HERNANDEZ ####[facility] Opxgbbzglt90[address] [place], [place] [address]Dr. Garima Pulliam CO2 [Moles/Vol] 28.2 mmol/L Normal 21.0-32.0 [facility] Comment on above: Performed By: #### NANCY Larkin MP ####[facility] Hytqqojvbk3437 [place] [address]Dr. Chapisrenu Pulliam Creatinine [Mass/Vol] 0.60 mg/dL Critically low 0.70-1.30 [facility] Comment on above: Performed By: #### NANCY Larkin MP ####[facility] Ylwvbklpjn7637 [place] [address]Dr. Garima Pulliam EGFR-AF IRANIAN >60 Normal >=60 [facility] Comment on above: Performed By: #### NANCY Larkin MP ####[facility] Bxntrlubgr9672 [place] [address]Dr. Garima Pulliam EGFR-NON AF IRANIAN >60 Normal >=60 [facility] Comment on above: Performed By: #### NANCY Larkin MP ####[facility] Qlakfyddnl279[address] [place], [place] [address]Dr. Garima Pulliam Glucose [Mass/Vol] 166 mg/dL Critically high 74-106 [facility] Comment on above: Performed By: #### B MP, CMADM ####[facility] Cbosylbott[address] [place] [address]Dr. Garima Pulliam Potassium [Moles/Vol] 3.5 mmol/L Normal 3.5-5.1 [facility] Comment on above: Performed By: #### B MP, CMADM ####[facility] Tulrwamkiw8362 [place] [address]Dr. Garima Pulliam Sodium [Moles/Vol] 139 mmol/L Normal 136-145 [facility] Comment on above: Performed By: #### B DAVID, CMADM ####[facility] Gfvewidmzl8326 [place] [address]Dr. Garima Heraclio Urea nitrogen [Mass/Vol] 9.0 mg/dL Normal 7.0-18.0 [facility] Comment on above: Performed By: #### B DAVID, NANCY ####[facility] Qamhvesnui8023[address] [place], [place] [address]Dr. Garima Heraclio Urea nitrogen/Creatinine [Mass ratio] 15.0 mg/mg Normal [facility] Comment on above: Performed By: #### B DAVID, CMAANA ROSA ####[facility] Ezehvqszdx[address] [place], [place] [address]Dr. Garima Pulliam XR CHEST 1 Von 12-10-2022 XR CHEST 1 V Normal [facility] BNPon 11-27-2022 Natriuretic peptide B (Bld) [Mass/Vol] 95.0 pg/mL Normal <=900.0 [facility] Comment on above: Performed By: #### C MP, HSTROPN, BNP ####[facility] Wxxcxpfcei600[address] [place], [place] [address]Dr. Garima Heraclio CBC AUTO DIFFon 11-27-2022 BASO # 0.0 103/ul Normal 0.0-0.1 [facility] Comment on above: Performed By: #### C BC ####[facility] Qgzgsznjwi21[address] [place], [place] [address]Dr. Garima Heraclio Basophils/100 WBC (Bld) 0.2 % Normal 0.2-2.0 [facility] Comment on above: Performed By: #### C BC ####[facility] Bxdpbteyaw8858 [place] [address]Dr. Garima Pulliam EO # 0.2 103/ul Normal 0.0-0.7 [facility] Comment on above: Performed By: #### C BC ####[facility] Jtcfdxefbd5731 [place] [address]Dr. Garima Pulliam Eosinophils/100 WBC (Bld) 2.0 % Normal 0.9-7.0 [facility] Comment on above: Performed By: #### C BC ####[facility] Zxnwvclxsh112[address] [place], [place] [address]Dr. Garima Pulliam Erythrocyte distribution width (RBC) [Ratio] 13.2 % Normal 11.0-15.0 [facility] Comment on above: Performed By: #### C BC ####[facility] Nevqsjbsyh854[address] [place], [place] [address]Dr. Garima Pulliam Hematocrit (Bld) [Volume fraction] 42.4 % Normal 42.0-54.0 [facility] Comment on above: Performed By: #### C BC ####[facility] Plgagskcuw94[address] [place], [place] [address]Dr. Garima Pulliam Hemoglobin (Bld) [Mass/Vol] 14.4 g/dL Normal 14.0-18.0 [facility] Comment on above: Performed By: #### C BC ####[facility] Kxakakmdnn485[address] [place], [place] [address]Dr. Garima Pulliam IG # 0.04 10e3/ul Critically high 0.00-0.03 [facility] Comment on above: Performed By: #### C BC ####[facility] Kwumyypwis5[address] [place], [place] [address]Dr. Garima Pulliam IG % 0.4 % Normal 0.0-0.5 [facility] Comment on above: Performed By: #### C BC ####[facility] Gnkxyqjpci043[address] [place], [place] [address]Dr. Garima Pulliam LYMPH # 2.2 103/ul Normal 1.2-3.8 [facility] Comment on above: Performed By: #### C BC ####[facility] Yazuyblmfa6731 [place] [address]Dr. Garima Pulliam Lymphocytes/100 WBC (Bld) 21.5 % Normal 20.5-60.0 [facility] Comment on above: Performed By: #### C BC ####[facility] Sqyxkhejia8[address] [place] [address]Dr. Garima Heraclio MANUAL DIFF REQ NO Normal [facility] Comment on above: Performed By: #### C BC ####[facility] Agcprjneow3142 [place] [address]Dr. Garima Heraclio MCH (RBC) [Entitic mass] 30.4 pg Normal 25.9-34.0 [facility] Comment on above: Performed By: #### C BC ####[facility] Bnsoqxpedx8225 [place] [address]Dr. Garima Heraclio MCHC (RBC) [Mass/Vol] 34.0 g/dL Normal 29.9-35.2 [facility] Comment on above: Performed By: #### C BC ####[facility] Dvlgfdiuxt3301 [place] [address]Dr. Garima Pulliam MCV (RBC) [Entitic vol] 89.6 fL Normal 80.0-94.0 [facility] Comment on above: Performed By: #### C BC ####[facility] Gklzefutom3359 [place] [address]Dr. Garima Pulliam MONO # 0.8 103/ul Normal 0.3-0.8 [facility] Comment on above: Performed By: #### C BC ####[facility] Xqsbcdqdde1897 [place] [address]Dr. Chapisrenu Pulliam Monocytes/100 WBC (Bld) 7.7 % Normal 1.7-12.0 [facility] Comment on above: Performed By: #### C BC ####[facility] Nocyywbutx[address] [place], [place] [address]Dr. Garima Pulliam NEUT # 7.0 103/ul Critically high 1.4-6.5 [facility] Comment on above: Performed By: #### C BC ####[facility] Hvxovzxyet5871 [place] [address]Dr. Garima Pulliam Neutrophils/100 WBC (Bld) 68.2 % Normal 43.0-75.0 [facility] Comment on above: Performed By: #### C BC ####[facility] Kcveozhcfk4819 [place] [address]Dr. Chapisrenu Pulliam Platelet mean volume (Bld) [Entitic vol] 8.9 fL Critically low 9.5-13.5 [facility] Comment on above: Performed By: #### C BC ####[facility] Jpmxirbwwu7602 [place] [address]Dr. Garima Pulliam PLT 222 103/ul Normal 150-450 [facility] Comment on above: Performed By: #### C BC ####[facility] Gfxcvvhmey3326 [place] [address]Dr. Garima Pulliam RBC 4.73 106/ul Normal 4.70-6.10 [facility] Comment on above: Performed By: #### C BC ####[facility] Wigfzyuusf750[address] [place] [address]Dr. Garima Pulliam WBC 10.3 103/ul Normal 4.0-11.0 [facility] Comment on above: Performed By: #### C BC ####[facility] Mnjnfujjuw3195 [place] [address]Dr. Garima Pulliam PROF 14(COMP METB)on 023 Albumin [Mass/Vol] 3.7 g/dL Normal 3.4-5.0 [facility] Comment on above: Performed By: #### C MP, HSTROPN, BNP ####[facility] Jcbdyixrah6023 [place] [address]Dr. Chapisrenu Pulliam Albumin/Globulin [Mass ratio] 1.5 {ratio} Normal [facility] Comment on above: Performed By: #### C MP, HSTROPN, BNP ####[facility] Yqprjlwyex8365 [place] [address]Dr. Garima Pulliam ALP [Catalytic activity/Vol] 79 U/L Normal 46-116 [facility] Comment on above: Performed By: #### C MP, HSTROPN, BNP ####[facility] Fspsoaionh4693 [place] [address]Dr. Garima Pulliam ALT [Catalytic activity/Vol] 32 U/L Normal 16-63 [facility] Comment on above: Performed By: #### C MP, HSTROPN, BNP ####[facility] Bmxorjirzm8553 [place] [address]Dr. Garima Pulliam Anion gap [Moles/Vol] 9.5 mmol/L Normal [facility] Comment on above: Performed By: #### C MP, HSTROPN, BNP ####[facility] Vuoqfgbfet199[address] [place], [place] [address]Dr. Garima Pulliam AST [Catalytic activity/Vol] 25 U/L Normal 15-37 [facility] Comment on above: Performed By: #### C MP, HSTROPN, BNP ####[facility] Khzfvjxtch44[address] [place], [place] [address]Dr. Chapislan Pulliam Bilirubin [Mass/Vol] 0.4 mg/dL Normal 0.2-1.0 [facility] Comment on above: Performed By: #### C MP, HSTROPN, BNP ####[facility] Zbkoqpfbva74[address] [place], [place] [address]Dr. Garima Pulliam Calcium [Mass/Vol] 8.9 mg/dL Normal 8.5-10.1 [facility] Comment on above: Performed By: #### C MP, HSTROPN, BNP ####[facility] Dvrckkjytt438[address] [place], [place] [address]Dr. Chapislan Pulliam Chloride [Moles/Vol] 103 mmol/L Normal 98-107 [facility] Comment on above: Performed By: #### C MP, HSTROPN, BNP ####[facility] Cjymsnbtsb[address] [place], [place] [address]Dr. Yilan Pulliam CO2 [Moles/Vol] 28.6 mmol/L Normal 21.0-32.0 [facility] Comment on above: Performed By: #### C MP, HSTROPN, BNP ####[facility] Dtnyjyeutc8543 [place] [address]Dr. Garima Pulliam Creatinine [Mass/Vol] 0.72 mg/dL Normal 0.70-1.30 [facility] Comment on above: Performed By: #### C MP, HSTROPN, BNP ####[facility] Pmntowcqva7357 [place] [address]Dr. Garima Pulliam EGFR-AF IRANIAN >60 Normal >=60 [facility] Comment on above: Performed By: #### C MP, HSTROPN, BNP ####[facility] Ycsyfaxjho7869 [place] [address]Dr. Garima Pulliam EGFR-NON AF IRANIAN >60 Normal >=60 [facility] Comment on above: Performed By: #### C MP, HSTROPN, BNP ####[facility] Agumcymqhx9600 [place] [address]Dr. Garima Pulliam Globulin (S) [Mass/Vol] 2.5 g/dL Normal [facility] Comment on above: Performed By: #### C MP, HSTROPN, BNP ####[facility] Xftxgjmwst255[address] [place], [place] [address]Dr. Garima Pulliam Glucose [Mass/Vol] 114 mg/dL Critically high 74-106 T [facility] Comment on above: Performed By: #### C MP, HSTROPN, BNP ####[facility] Junsvtriuo689[address] [place], [place] [address]Dr. Garima Pulliam Potassium [Moles/Vol] 4.1 mmol/L Normal 3.5-5.1 [facility] Comment on above: Performed By: #### C MP, HSTROPN, BNP ####[facility] Mkltlvybkm634[address] [place], [place] [address]Dr. Garima Pulliam Protein [Mass/Vol] 6.2 g/dL Critically low 6.4-8.2 [facility] Comment on above: Performed By: #### C MP, HSTROPN, BNP ####[facility] Fbcjghvpqp079[address] [place], [place] [address]Dr. Yilan Pulliam Sodium [Moles/Vol] 137 mmol/L Normal 136-145 [facility] Comment on above: Performed By: #### C MP, HSTROPN, BNP ####[facility] Gxsqqynwdg8175 [place] [address]Dr. Garima Pulliam Urea nitrogen [Mass/Vol] 13.0 mg/dL Normal 7.0-18.0 [facility] Comment on above: Performed By: #### C MP, HSTROPN, BNP ####[facility] Rsyqtdyavb6569 [place] [address]Dr. Garima Pulliam Urea nitrogen/Creatinine [Mass ratio] 18.1 mg/mg Normal [facility] Comment on above: Performed By: #### C MP, HSTROPN, BNP ####[facility] Yagdsowtrc[address] [place], [place] [address]Dr. Garima Pulliam TROPONIN, HIGH SENSITIVITYon 11-27-2022 HSTROP 11.8 pg/mL Normal 4.0-76.1 [facility] Comment on above: Result Comment: CUT- OFF POINTS HAVE BEEN ESTABLISHED BASED ON THE FOURTH UNIVERSAL DEFINITIONS OF MYOCARDIALINFARCTION. THE UPPER REFERENCE LIMIT (URL) OF TROPONIN, DEFINED THE 99TH PERCENTILE OFcTnI DISTRIBUTION IN A REFERENCE POPULATION, HAS BEEN CONFIRMED THE DECISION THRESHOLDFOR MO DIAGNOSIS. Performed By: #### C MP, HSTROPN, BNP ####[facility] Cvcpqiluoq14[address] [place], [place] [address]Dr. Garima Pulliam XR CHEST 1 Von 11-27-2022 XR CHEST 1 V Normal [facility] BNPon 11-20-2022 Natriuretic peptide B (Bld) [Mass/Vol] 73.0 pg/mL Normal <=900.0 [facility] Comment on above: Performed By: #### B MP, HSTROPN, BNP ####[facility] Vzhuiqkeic[address] [place], [place] [address]Dr. Garima Pulliam CBC AUTO DIFFon 11-20-2022 BASO # 0.0 103/ul Normal 0.0-0.1 [facility] Comment on above: Performed By: #### C BC ####[facility] Crssnpkvob9637 [place] [id number]. Garima Pulliam Basophils/100 WBC (Bld) 0.3 % Normal 0.2-2.0 [facility] Comment on above: Performed By: #### C BC ####[facility] [address] [place] [id number]. Garima Pulliam EO # 0.2 103/ul Normal 0.0-0.7 [facility] Comment on above: Performed By: #### C BC ####[facility] Oy[address]ahvtsz[address] [place] [address]Dr. Garima Pulliam Eosinophils/100 WBC (Bld) 2.1 % Normal 0.9-7.0 [facility] Comment on above: Performed By: #### C BC ####[facility] Plfkaoagmi[address] [place], [place] [address]Dr. Garima Pulliam Erythrocyte distribution width (RBC) [Ratio] 13.2 % Normal 11.0-15.0 [facility] Comment on above: Performed By: #### C BC ####[facility] Ayqjzrmore[address] [place], [place] [address]Dr. Garima Pulliam Hematocrit (Bld) [Volume fraction] 43.4 % Normal 42.0-54.0 [facility] Comment on above: Performed By: #### C BC ####[facility] Zxuse[address] [place], [place] [address]Dr. Garima Pulliam Hemoglobin (Bld) [Mass/Vol] 14.6 g/dL Normal 14.0-18.0 [facility] Comment on above: Performed By: #### C BC ####[facility] Qgtqkrgsxk8132 [place] [address]Dr. Garima Pulliam IG # 0.02 10e3/ul Normal 0.00-0.03 [facility] Comment on above: Performed By: #### C BC ####[facility] Qywyahsiow8787 [place] [address]Dr. Garima Pulliam IG % 0.2 % Normal 0.0-0.5 [facility] Comment on above: Performed By: #### C BC ####[facility] Jfixkpeqfc1418 [place] [address]Dr. Garima Heraclio LYMPH # 2.1 103/ul Normal 1.2-3.8 [facility] Comment on above: Performed By: #### C BC ####[facility] Fybbkmitzh4056 [place] [address]Dr. Garima Heraclio Lymphocytes/100 WBC (Bld) 19.2 % Critically low 20.5-60.0 [facility] Comment on above: Performed By: #### C BC ####[facility] Tmbggssogu5565 [place] [address]Dr. Chapisrenu Pulliam MANUAL DIFF REQ NO Normal [facility] Comment on above: Performed By: #### C BC ####[facility] Dtzwhwlnyk5464 [place] [address]Dr. Garima Heraclio MCH (RBC) [Entitic mass] 30.4 pg Normal 25.9-34.0 [facility] Comment on above: Performed By: #### C BC ####[facility] Zpcuoiksmt8934 [place] [address]Dr. Garima Pulliam MCHC (RBC) [Mass/Vol] 33.6 g/dL Normal 29.9-35.2 [facility] Comment on above: Performed By: #### C BC ####[facility] Byhhfzqmnm5047 [place] [address]Dr. Garima Heraclio MCV (RBC) [Entitic vol] 90.4 fL Normal 80.0-94.0 [facility] Comment on above: Performed By: #### C BC ####[facility] Mxwwpasbmx1205 [place] [address]Dr. Garima Heraclio MONO # 0.6 103/ul Normal 0.3-0.8 [facility] Comment on above: Performed By: #### C BC ####[facility] Qbtswaillc6210 [place] [address]Dr. Garima Heraclio Monocytes/100 WBC (Bld) 5.8 % Normal 1.7-12.0 [facility] Comment on above: Performed By: #### C BC ####[facility] Shcdqysnvc4497 [place], [place] [address]Sm. Garima Pulliam NEUT # 7.8 103/ul Critically high 1.4-6.5 [facility] Comment on above: Performed By: #### C BC ####[facility] Qjcdytikhm7900 [place] [address]Dr. Garima Pulliam Neutrophils/100 WBC (Bld) 72.4 % Normal 43.0-75.0 [facility] Comment on above: Performed By: #### C BC ####[facility] Isaowiuwau2044 [place] [address]Dr. Garima Pulliam Platelet mean volume (Bld) [Entitic vol] 8.7 fL Critically low 9.5-13.5 [facility] Comment on above: Performed By: #### C BC ####[facility] Fqqzkvyzxo4603 [place] [address]Dr. Garima Pulliam PLT 184 103/ul Normal 150-450 [facility] Comment on above: Performed By: #### C BC ####[facility] Yqqokoemge3369 [place], [place] [address]Av. Garima Pulliam RBC 4.80 106/ul Normal 4.70-6.10 [facility] Comment on above: Performed By: #### C BC ####[facility] Zwfqktegon0779 [place] [address]Dr. Garima Pulliam WBC 10.8 103/ul Normal 4.0-11.0 [facility] Comment on above: Performed By: #### C BC ####[facility] Ejlkjbfulf5761 [place] [address]Dr. Garima Pulliam [facility]24 SARS-CoV-2 (COVID-19) RNA MARIE+probe Ql (Unsp spec) Not detected Normal NOT DETECTED [facility] Comment on above: Result Comment: When [...] for this test is supported by the [place] of Health and Human Service's declaration that [...] Performed By: #### C VDTBH ####[facility] Pqohqxzgto27[address] [place], [place] [address]Dr. Garima Pulliam INFLUENZA A AND B AGon 11-20 [facility] SEE BELOW Normal [facility] Comment on above: Result Comment: Nega tive for Flu A protein angiten. Infection due to Flu A cannot be ruled out. Flu A angiten in the sample may be below the detection limit of the test. Performed By: #### I NFLUAB ####[facility] Fsskxzforh[address] [place], [place] [address]Dr. Garima Pulliam INFLUBNEGH SEE BELOW Normal [facility] Comment on above: Result Comment: Nega tive for Flu B protein antigen. Infection due to Flu B cannot be ruled out. Flu B antigen in the sample may be below the detection limit of the test. Performed By: #### I NFLUAB ####[facility] Yehyejprtm[address] [place], [place] [address]Dr. Garima Pulliam INFLUENZA A AG Negative Normal NEGATIVE SEE COMMENT [facility] Comment on above: Performed By: #### I NFLUAB ####[facility] Fahuxhmfim02[address] [place], [place] [address]Dr. Garima [facility] INFLUENZA B AG Negative Normal NEGATIVE SEE COMMENT [facility] Comment on above: Performed By: #### I NFLUAB ####[facility] Mqvitfbznz7[address] [place], [place] [address]Dr. Garima Pulliam PROF CHEM 8 (BAS METB)on Anion gap [Moles/Vol] 8.2 mmol/L Normal [facility] Comment on above: Performed By: #### B MP, HSTROPN, BNP ####[facility] Trjlinfwwp8528 [place] [address]Dr. Garima Pulliam Calcium [Mass/Vol] 8.7 mg/dL Normal 8.5-10.1 [facility] Comment on above: Performed By: #### B MP, HSTROPN, BNP ####[facility] Yzheskjokn8[address] [place] [address]Dr. Garima Pulliam Chloride [Moles/Vol] 103 mmol/L Normal 98-107 [facility] Comment on above: Performed By: #### B MP, HSTROPN, BNP ####[facility] Hntzlaacfw[address] [place], [place] [address]Dr. Garima Pulliam CO2 [Moles/Vol] 29.4 mmol/L Normal 21.0-32.0 [facility] [place] [facility] Comment on above: Performed By: #### B MP, HSTROPN, BNP ####[facility] Ehcmvfbfjf5825[address] [place], [place] [address]Dr. Garima Pulliam Creatinine [Mass/Vol] 0.69 mg/dL Critically low 0.70-1.30 [facility] Comment on above: Performed By: #### B MP, HSTROPN, BNP ####[facility] Khsjzjzper8[address] [place] [address]Dr. Garima Pulliam EGFR-AF IRANIAN >60 Normal >=60 [facility] [place] [facility] Comment on above: Performed By: #### B MP, HSTROPN, BNP ####[facility] Vtixlmdqbg106[address] [place], [place] [address]Dr. Garima Pulliam EGFR-NON AF IRANIAN >60 Normal >=60 [facility] Comment on above: Performed By: #### B MP, HSTROPN, BNP ####[facility] Wdgiqsmjpl5232 [place] [address]Dr. Garima Pulliam Glucose [Mass/Vol] 209 mg/dL Critically high 74-106 T [facility] Comment on above: Performed By: #### B MP, HSTROPN, BNP ####[facility] Oniuhktvbl7758 [place] [address]Dr. Garima Pulliam Potassium [Moles/Vol] 3.6 mmol/L Normal 3.5-5.1 [facility] Comment on above: Performed By: #### B MP, HSTROPN, BNP ####[facility] Idqadqiywp9606 [place] [address]Dr. Garima Pulliam Sodium [Moles/Vol] 137 mmol/L Normal 136-145 [facility] Comment on above: Performed By: #### B MP, HSTROPN, BNP ####[facility] Kqlbadmtku2494 [place] [address]Dr. Garima Pulliam Urea nitrogen [Mass/Vol] 11.0 mg/dL Normal 7.0-18.0 [facility] Comment on above: Performed By: #### B MP, HSTROPN, BNP ####[facility] Jqfkpfvchv6322 [place] [address]Dr. Garima Pulliam Urea nitrogen/Creatinine [Mass ratio] 15.9 mg/mg Normal [facility] Comment on above: Performed By: #### B MP, HSTROPN, BNP ####[facility] Oyzltteyvx96[address] [place] [address]Dr. Garima Pulliam TROPONIN, HIGH SENSITIVITYon 11-20-2022 HSTROP 8.7 pg/mL Normal 4.0-76.1 [facility] Comment on above: Result Comment: CUT- OFF POINTS HAVE BEEN ESTABLISHED BASED ON THE FOURTH UNIVERSAL DEFINITIONS OF MYOCARDIALINFARCTION. THE UPPER REFERENCE LIMIT (URL) OF TROPONIN, DEFINED THE 99TH PERCENTILE OFcTnI DISTRIBUTION IN A REFERENCE POPULATION, HAS BEEN CONFIRMED THE DECISION THRESHOLDFOR MO DIAGNOSIS. Performed By: #### B MP, HSTROPN, BNP ####[facility] Oqomgfzloy9[address] [place] [address]Dr. Garima Pulliam XR CHEST 1 Von 11-20-2022 XR CHEST 1 V Normal [facility] XR CHEST 1 Von 10-02-2022 XR CHEST 1 V Normal [facility] BNPon 09-29-2022 Natriuretic peptide B (Bld) [Mass/Vol] 107.0 pg/mL Normal <=900.0 [facility] Comment on above: Performed By: #### C MP, BNP, CMADM ####[facility] Gsylqtigud7[address] [place] [address]Dr. Garima Pulliam CARDIAC NASH ADMITon 022 CK [Catalytic activity/Vol] 190 U/L Normal 39-308 [facility] Comment on above: Performed By: #### C MP, BNP, CMADM ####[facility] Rqdzfrcyvv8482 [place] [address]Dr. Garima Heraclio CK.MB [Mass/Vol] 11.11 ng/mL Critically high <=3.60 [facility] Comment on above: Performed By: #### C MP, BNP, CMADM ####[facility] Cppkhzknjj1736 [place] [address]Dr. Garima Pulliam HSTROP 11.8 pg/mL Normal 4.0-76.1 [facility] Comment on above: Result Comment: CUT- OFF POINTS HAVE BEEN ESTABLISHED BASED ON THE FOURTH UNIVERSAL DEFINITIONS OF MYOCARDIALINFARCTION. THE UPPER REFERENCE LIMIT (URL) OF TROPONIN, DEFINED THE 99TH PERCENTILE OFcTnI DISTRIBUTION IN A REFERENCE POPULATION, HAS BEEN CONFIRMED THE DECISION THRESHOLDFOR MO DIAGNOSIS. Performed By: #### C MP, BNP, CMADM ####[facility] Eyajunqoep8983 [place] [address]Dr. Garima Pulliam DORIS 133 ng/mL Critically high 16-96 [facility] Comment on above: Performed By: #### C MP, BNP, CMADM ####[facility] Nteicfdfjg6262 [place] [address]Dr. Garima Heraclio CBC AUTO DIFFon 09-29-2022 BASO # 0.0 103/ul Normal 0.0-0.1 [facility] Comment on above: Performed By: #### C BC ####[facility] Limbncnveq7239 [place] [address]Dr. Garima Heraclio Basophils/100 WBC (Bld) 0.2 % Normal 0.2-2.0 [facility] Comment on above: Performed By: #### C BC ####[facility] Mrftxydqvf0527 [place] [address]Dr. Garima Pulliam EO # 0.1 103/ul Normal 0.0-0.7 [facility] Comment on above: Performed By: #### C BC ####[facility] Qtjvucqyek7925 [place] [address]Dr. Garima Pulliam Eosinophils/100 WBC (Bld) 1.4 % Normal 0.9-7.0 [facility] Comment on above: Performed By: #### C BC ####[facility] Zulxvkagcr699[address] [place], [place] [address]Dr. Garima Pulliam Erythrocyte distribution width (RBC) [Ratio] 13.7 % Normal 11.0-15.0 [facility] Comment on above: Performed By: #### C BC ####[facility] Yhtrthscjt146[address] [place], [place] [address]Dr. Garima Pulliam Hematocrit (Bld) [Volume fraction] 45.4 % Normal 42.0-54.0 [facility] Comment on above: Performed By: #### C BC ####[facility] Kowlbqljpj74[address] [place], [place] [address]Dr. Garima Pulliam Hemoglobin (Bld) [Mass/Vol] 14.8 g/dL Normal 14.0-18.0 [facility] Comment on above: Performed By: #### C BC ####[facility] Rjzauixrgc[address] [place], [place] [address]Dr. Garima Pulliam IG # 0.04 10e3/ul Critically high 0.00-0.03 [facility] Comment on above: Performed By: #### C BC ####[facility] Sabpnnupkm14[address] [place], [place] [address]Dr. Garima Pulliam IG % 0.5 % Normal 0.0-0.5 [facility] Comment on above: Performed By: #### C BC ####[facility] Izrzayjmjq108[address] [place], [place] [address]Dr. Garima Pulliam LYMPH # 1.1 103/ul Critically low 1.2-3.8 [facility] Comment on above: Performed By: #### C BC ####[facility] Kvjwzhnxns2639 [place] [address]Dr. Garima Pulliam Lymphocytes/100 WBC (Bld) 12.7 % Critically low 20.5-60.0 [facility] Comment on above: Performed By: #### C BC ####[facility] Wcvdcqlrvm7067 [place] [address]Dr. Chapisrenu Pulliam MANUAL DIFF REQ NO Normal [facility] Comment on above: Performed By: #### C BC ####[facility] Vdvyyyobdk255[address] [place], [place] [address]Dr. Garima Heraclio MCH (RBC) [Entitic mass] 30.0 pg Normal 25.9-34.0 [facility] Comment on above: Performed By: #### C BC ####[facility] Zktlkylkrp0130[address] [place], [place] [address]Dr. Garima Heraclio MCHC (RBC) [Mass/Vol] 32.6 g/dL Normal 29.9-35.2 [facility] Comment on above: Performed By: #### C BC ####[facility] Ppiccdyhkl[address] [place], [place] [address]Dr. Garima Heraclio MCV (RBC) [Entitic vol] 91.9 fL Normal 80.0-94.0 [facility] Comment on above: Performed By: #### C BC ####[facility] Urziuaobmg456[address] [place], [place] [address]Dr. Garima Pulliam MONO # 0.4 103/ul Normal 0.3-0.8 [facility] Comment on above: Performed By: #### C BC ####[facility] Ocrvdzdohk[address] [place], [place] [address]Dr. Chapisrenu Pulliam Monocytes/100 WBC (Bld) 4.8 % Normal 1.7-12.0 [facility] Comment on above: Performed By: #### C BC ####[facility] Ywwsmezjmz16[address] [place], [place] [address]Dr. Garima Pulliam NEUT # 7.1 103/ul Critically high 1.4-6.5 [facility] Comment on above: Performed By: #### C BC ####[facility] Vbauvzpcbj4760 [place], [place] [address]Py. Garima Pulliam Neutrophils/100 WBC (Bld) 80.4 % Critically high 43.0-75.0 [facility] Comment on above: Performed By: #### C BC ####[facility] Jmprmqzzwm2328 [place] [address]Dr. Garima Pulliam Platelet mean volume (Bld) [Entitic vol] 9.1 fL Critically low 9.5-13.5 [facility] Comment on above: Performed By: #### C BC ####[facility] Ndkemaoanx8944 [place] [address]Dr. Garima Pulliam PLT 200 103/ul Normal 150-450 [facility] Comment on above: Performed By: #### C BC ####[facility] Jexmxcagrh9171 [place] [address]Dr. Garima Pulliam RBC 4.94 106/ul Normal 4.70-6.10 [facility] Comment on above: Performed By: #### C BC ####[facility] Xfeiecayxc0470 [place] [address]Dr. Garima Pulliam WBC 8.9 103/ul Normal 4.0-11.0 [facility] Comment on above: Performed By: #### C BC ####[facility] Cmfoguoplp8982 [place] [address]Dr. Garima Pulliam Covid-19 PCR (CVDTB)on SARS-CoV-2 (COVID-19) RNA MARIE+probe Ql (Unsp spec) Not detected Normal NOT DETECTED [facility] Comment on above: Result Comment: When [...] for this test is supported by the [place] of Health and Human Service's declaration that [...] Performed By: #### C VDTBH ####[facility] Owteyvmalq1625 [place] [address]Dr. Garima Pulliam LACTATE/LACTIC ACIDon 2021 Lactate [Moles/Vol] 1.7 mmol/L Normal 0.4-1.9 [facility] Comment on above: Performed By: #### L ACT ####[facility] Vccgkpnchy[address] [place], [place] [address]Dr. Garima Pulliam PROF 14(COMP METB)on 022 Albumin [Mass/Vol] 3.8 g/dL Normal 3.4-5.0 [facility] Comment on above: Performed By: #### C MP, BNP, CMADM ####[facility] Sjllodiajg[address] [place], [place] [address]Dr. Garima Pulliam Albumin/Globulin [Mass ratio] 1.5 {ratio} Normal [facility] Comment on above: Performed By: #### C MP, BNP, CMADM ####[facility] Coxlczqbjp2403 [place] [address]Dr. Garima Pulliam ALP [Catalytic activity/Vol] 62 U/L Normal 46-116 [facility] Comment on above: Performed By: #### C MP, BNP, CMADM ####[facility] Munrqhlgpw5051 [place] [address]Dr. Garima Pulliam ALT [Catalytic activity/Vol] 37 U/L Normal 16-63 [facility] Comment on above: Performed By: #### C MP, BNP, CMADM ####[facility] Kscwtmizhn1771 [place] [address]Dr. Garima Pulliam Anion gap [Moles/Vol] 8.0 mmol/L Normal [facility] Comment on above: Performed By: #### C MP, BNP, CMADM ####[facility] Ykwoxnmnys6942 [place] [address]Dr. Garima Pulliam AST [Catalytic activity/Vol] 20 U/L Normal 15-37 [facility] Comment on above: Performed By: #### C MP, BNP, CMADM ####[facility] Rfquyrpicc0482 [place] [address]Dr. Garima Pulliam Bilirubin [Mass/Vol] 0.6 mg/dL Normal 0.2-1.0 [facility] Comment on above: Performed By: #### C MP, BNP, CMADM ####[facility] Bdlwscleju5098 [place] [address]Dr. Garima Pulliam Calcium [Mass/Vol] 9.1 mg/dL Normal 8.5-10.1 [facility] Comment on above: Performed By: #### C MP, BNP, CMADM ####[facility] Fzdqxuxfqt170[address] [place], [place] [address]Dr. Garima Pulliam Chloride [Moles/Vol] 103 mmol/L Normal 98-107 [facility] Comment on above: Performed By: #### C MP, BNP, CMADM ####[facility] Nhrfhgaewq84[address] [place], [place] [address]Dr. Garima Pulliam CO2 [Moles/Vol] 31.8 mmol/L Normal 21.0-32.0 [facility] Comment on above: Performed By: #### C MP, BNP, CMADM ####[facility] Mrodgjhsfs120[address] [place], [place] [address]Dr. Garima Pulliam Creatinine [Mass/Vol] 0.63 mg/dL Critically low 0.70-1.30 [facility] Comment on above: Performed By: #### C MP, BNP, CMADM ####[facility] Zkqualpnhi59[address] [place], [place] [address]Dr. Garima Pulliam EGFR-AF IRANIAN >60 Normal >=60 [facility] Comment on above: Performed By: #### C MP, BNP, CMADM ####[facility] Giwujanbcq379[address] [place], [place] [address]Dr. Garima Pulliam EGFR-NON AF IRANIAN >60 Normal >=60 [facility] Comment on above: Performed By: #### C MP, BNP, CMADM ####[facility] Gzxrypzjkg4239 [place] [address]Dr. Garima Pulliam Globulin (S) [Mass/Vol] 2.6 g/dL Normal [facility] Comment on above: Performed By: #### C MP, BNP, CMADM ####[facility] Eluuqfvbow4744 [place] [address]Dr. Garima Pulliam Glucose [Mass/Vol] 103 mg/dL Normal 74-106 [facility] Comment on above: Performed By: #### C MP, BNP, CMADM ####[facility] Ckgytxxbyf9730 [place] [address]Dr. Garima Pulliam Potassium [Moles/Vol] 3.8 mmol/L Normal 3.5-5.1 [facility] Comment on above: Performed By: #### C MP, BNP, CMADM ####[facility] Ozcopyfkio7229 [place] [address]Dr. Garima Pulliam Protein [Mass/Vol] 6.4 g/dL Normal 6.4-8.2 [facility] Comment on above: Performed By: #### C MP, BNP, CMADM ####[facility] Yfbiilrpyj7146 [place] [address]Dr. Garima Pulliam Sodium [Moles/Vol] 139 mmol/L Normal 136-145 [facility] Comment on above: Performed By: #### C MP, BNP, CMADM ####[facility] Zxpxpkfetu9971 [place] [address]Dr. Garima Pulliam Urea nitrogen [Mass/Vol] 7.0 mg/dL Normal 7.0-18.0 [facility] Comment on above: Performed By: #### C MP, BNP, CMADM ####[facility] Oaifbbyesf2703 [place] [address]Dr. Garima Pulliam Urea nitrogen/Creatinine [Mass ratio] 11.1 mg/mg Normal [facility] Comment on above: Performed By: #### C MP, BNP, CMADM ####[facility] Dvcwiljowd0721 [place] [address]Dr. Garima Pulliam PROTIMEon 09-29-2022 INR Coag (PPP) [Relative time] 1.14 {INR} Normal [facility] Comment on above: Performed By: #### P T, PTT ####[facility] Suanbixbgs[address] [place], [place] [address]Dr. Garima Pulliam INR GUIDELINES SEE BELOW Normal [facility] Comment on above: Result Comment: WESLEY RED INR: 2.0 - 3.0 CONDITIONS NOT LISTED BELOW 2.5 - 3.5 FOR PROSTHETIC HEART VALVE REPLACEMENT 2.5 - 3.5 RECURRENT THROMBOSIS Performed By: #### P T, PTT ####[facility] Iicddgptpg76[address] [place], [place] [address]Dr. Garima Pulliam PT Coag (PPP) [Time] 12.2 s Critically high 9.0-11.6 [facility] Comment on above: Performed By: #### P T, PTT ####[facility] Jcrslmrnia056[address] [place], [place] [address]Dr. Garima Pulliam PTTon 09-29-2022 aPTT Coag (Bld) [Time] 29.3 s Normal 22.3-36.2 [facility] Comment on above: Performed By: #### P T, PTT ####[facility] Mlkqdvefay024[address] [place], [place] [address]Dr. Garima Pulliam XR CHEST 1 Von 09-29-2022 XR CHEST 1 V Normal [facility] CBC AUTO DIFFon 09-26-2022 BASO # 0.0 103/ul Normal 0.0-0.1 [facility] Comment on above: Performed By: #### C BC ####[facility] Nosgybyvnr718[address] [place], [place] [address]Dr. Garima Pulliam Basophils/100 WBC (Bld) 0.2 % Normal 0.2-2.0 [facility] Comment on above: Performed By: #### C BC ####[facility] Sjhynhnirg37[address] [place], [place] [address]Dr. Garima Pulliam EO # 0.1 103/ul Normal 0.0-0.7 [facility] Comment on above: Performed By: #### C BC ####[facility] Djhrypvwmg25[address] [place], [place] [address]Dr. Garima Pulliam Eosinophils/100 WBC (Bld) 1.0 % Normal 0.9-7.0 [facility] Comment on above: Performed By: #### C BC ####[facility] Cpsfsxxweo311[address] [place], [place] [address]Dr. Garima Pulliam Erythrocyte distribution width (RBC) [Ratio] 13.4 % Normal 11.0-15.0 [facility] Comment on above: Performed By: #### C BC ####[facility] Nhbykuioqv37[address] [place], [place] [address]Dr. Garima Pulliam Hematocrit (Bld) [Volume fraction] 46.3 % Normal 42.0-54.0 [facility] Comment on above: Performed By: #### C BC ####[facility] Jvzgrqicdw78[address] [place], [place] [address]Dr. Garima Pulliam Hemoglobin (Bld) [Mass/Vol] 15.3 g/dL Normal 14.0-18.0 [facility] Comment on above: Performed By: #### C BC ####[facility] Oyqyecopot[address] [place], [place] [address]Dr. Garima Pulliam IG # 0.05 10e3/ul Critically high 0.00-0.03 [facility] Comment on above: Performed By: #### C BC ####[facility] Uqcptbyyyt295[address] [place], [place] [address]Dr. Garima Pulliam IG % 0.4 % Normal 0.0-0.5 [facility] Comment on above: Performed By: #### C BC ####[facility] Jmhhtzlkgd208[address] [place], [place] [address]Dr. Garima Pulliam LYMPH # 1.7 103/ul Normal 1.2-3.8 [facility] Comment on above: Performed By: #### C BC ####[facility] Ahadsnrjnh318[address] [place], [place] [address]Dr. Garima Pulliam Lymphocytes/100 WBC (Bld) 12.7 % Critically low 20.5-60.0 [facility] Comment on above: Performed By: #### C BC ####[facility] [address]nyclr[address] [place] [address]DrAdalberto Pulliam MANUAL DIFF REQ NO Normal [facility] Comment on above: Performed By: #### C BC ####[facility] Ypwfkbkzod5174 [place] [address]Dr. Garima Pulliam MCH (RBC) [Entitic mass] 30.1 pg Normal 25.9-34.0 [facility] Comment on above: Performed By: #### C BC ####[facility] Brzqcuvtsl5750[address] [place], [place] [address]Dr. Garima Pulliam MCHC (RBC) [Mass/Vol] 33.0 g/dL Normal 29.9-35.2 [facility] Comment on above: Performed By: #### C BC ####[facility] Uaoivjujix025[address] [place], [place] [address]DrAdalberto Pulliam MCV (RBC) [Entitic vol] 91.1 fL Normal 80.0-94.0 [facility] Comment on above: Performed By: #### C BC ####[facility] Idmislduxw8499[address] [place], [place] [address]DrAdalberto Pulliam MONO # 0.9 103/ul Critically high 0.3-0.8 [facility] Comment on above: Performed By: #### C BC ####[facility] Ssqsbdscpq813[address] [place], [place] [address]DrAdalberto Pulliam Monocytes/100 WBC (Bld) 7.0 % Normal 1.7-12.0 [facility] Comment on above: Performed By: #### C BC ####[facility] Ylgitcvgzp638[address] [place], [place] [address]DrAdalberto Pulliam NEUT # 10.4 103/ul Critically high 1.4-6.5 [facility] Comment on above: Performed By: #### C BC ####[facility] Cipnyzmans076[address] [place], [place] [address]DrAdalberto Pulliam Neutrophils/100 WBC (Bld) 78.7 % Critically high 43.0-75.0 [facility] Comment on above: Performed By: #### C BC ####[facility] Ekzpbsddlk12[address] [place] [address]Dr. Garima Pulliam Platelet mean volume (Bld) [Entitic vol] 8.9 fL Critically low 9.5-13.5 [facility] Comment on above: Performed By: #### C BC ####[facility] Hhpxmrgpzz[address] [place] [address]Dr. Garima Pulliam PLT 195 103/ul Normal 150-450 [facility] Comment on above: Performed By: #### C BC ####[facility] Cksaotcwrw69[address] [place], [place] [address]Dr. Garima Pulliam RBC 5.08 106/ul Normal 4.70-6.10 [facility] Comment on above: Performed By: #### C BC ####[facility] Rvciihtguh286[address] [place], [place] [address]Dr. Garima Pulliam WBC 13.2 103/ul Critically high 4.0-11.0 [facility] Comment on above: Performed By: #### C BC ####[facility] Zjfkoaowyf77[address] [place], [place] [address]Dr. Garima Pulliam PROF 14(COMP METB)on 022 Albumin [Mass/Vol] 3.5 g/dL Normal 3.4-5.0 [facility] Comment on above: Performed By: #### C DAVID HSTROPN ####[facility] Cmprvtppko217[address] [place] [address]Dr. Garima Pulliam Albumin/Globulin [Mass ratio] 1.2 {ratio} Normal [facility] Comment on above: Performed By: #### C RAFAT HERNANDEZTROPN ####[facility] Oymukckcyp[address] [place] [address]Dr. Garima Pulliam ALP [Catalytic activity/Vol] 71 U/L Normal 46-116 [facility] Comment on above: Performed By: #### C DAVID HSTROPN ####[facility] Tfqdwmwgbo4256 [place] [address]Dr. Garima Pulliam ALT [Catalytic activity/Vol] 37 U/L Normal 16-63 [facility] Comment on above: Performed By: #### C DAVID, HSTROPN ####[facility] Jrgfnplfwf8367 [place] [address]Dr. Garima Pulliam Anion gap [Moles/Vol] 4.8 mmol/L Normal [facility] Comment on above: Performed By: #### C DAIVD, HSTROPN ####[facility] Gknvissnzx6[address] [place], [place] [address]Dr. Garima Pulliam AST [Catalytic activity/Vol] 21 U/L Normal 15-37 [facility] Comment on above: Performed By: #### C DAVID, HSTROPN ####[facility] Chbvbhffug5926[address] [place], [place] [address]Dr. Garima Pulliam Bilirubin [Mass/Vol] 0.3 mg/dL Normal 0.2-1.0 [facility] Comment on above: Performed By: #### C DAVID, HSTROPN ####[facility] Pfghauqnpa[address] [place] [address]Dr. Garima Pulliam Calcium [Mass/Vol] 8.9 mg/dL Normal 8.5-10.1 [facility] Comment on above: Performed By: #### C DAVID, HSTROPN ####[facility] Ksjjndvcdb[address] [place] [address]Dr. Garima Pulliam Chloride [Moles/Vol] 106 mmol/L Normal 98-107 [facility] Comment on above: Performed By: #### C DAVID, HSTROPN ####[facility] Dmpjpqtxok86[address] [place] [address]Dr. Garima Pulliam CO2 [Moles/Vol] 29.8 mmol/L Normal 21.0-32.0 [facility] Comment on above: Performed By: #### C DAVID, HSTROPN ####[facility] Lvmtkxaecm2256 [place] [address]Dr. Garima Pulliam Creatinine [Mass/Vol] 0.68 mg/dL Critically low 0.70-1.30 [facility] Comment on above: Performed By: #### C MP, HSTROPN ####[facility] Xcmykpmlmd668[address] [place] [address]Dr. Garima Pulliam EGFR-AF IRANIAN >60 Normal >=60 [facility] Comment on above: Performed By: #### C MP, HSTROPN ####[facility] Hycbynpeqe26[address] [place] [address]Dr. Chapislan Pulliam EGFR-NON AF IRANIAN >60 Normal >=60 [facility] Comment on above: Performed By: #### C MP, HSTROPN ####[facility] Ypzfoxhmdk7474 [place] [address]Dr. Garima Pulliam Globulin (S) [Mass/Vol] 2.8 g/dL Normal [facility] Comment on above: Performed By: #### C MP, HSTROPN ####[facility] Ducuztnwoq66[address] [place] [address]Dr. Garima Pulliam Glucose [Mass/Vol] 133 mg/dL Critically high 74-106 [facility] Comment on above: Performed By: #### C MP, HSTROPN ####[facility] Ddamiyhbse2161 [place] [address]Dr. Chapisrenu Pulliam Potassium [Moles/Vol] 3.6 mmol/L Normal 3.5-5.1 [facility] Comment on above: Performed By: #### C MP, HSTROPN ####[facility] Vddcmgutut9334 [place] [address]Dr. Chapisrenu Pulliam Protein [Mass/Vol] 6.3 g/dL Critically low 6.4-8.2 [facility] Comment on above: Performed By: #### C MP, HSTROPN ####[facility] Kkvugfiaqe55[address] [place], [place] [address]Dr. Chapisrenu Pulliam Sodium [Moles/Vol] 137 mmol/L Normal 136-145 [facility] Comment on above: Performed By: #### C MP, HSTROPN ####[facility] Lyfjqemqkv604[address] [place], [place] [address]Dr. Garima Pulliam Urea nitrogen [Mass/Vol] 15.0 mg/dL Normal 7.0-18.0 [facility] Comment on above: Performed By: #### C DAVID HSTROPN ####[facility] Eosfiaoayr26[address] [place] [address]Dr. Chapisrenu Pulliam Urea nitrogen/Creatinine [Mass ratio] 22.1 mg/mg Normal [facility] Comment on above: Performed By: #### C DAVID HSTROPN ####[facility] Dtsygbbufl[address] [place] [address]Dr. Garima Heraclio TROPONIN, HIGH SENSITIVITYon 09-26-2022 HSTROP 12.8 pg/mL Normal 4.0-76.1 [facility] Comment on above: Result Comment: CUT- OFF POINTS HAVE BEEN ESTABLISHED BASED ON THE FOURTH UNIVERSAL DEFINITIONS OF MYOCARDIALINFARCTION. THE UPPER REFERENCE LIMIT (URL) OF TROPONIN, DEFINED THE 99TH PERCENTILE OFcTnI DISTRIBUTION IN A REFERENCE POPULATION, HAS BEEN CONFIRMED THE DECISION THRESHOLDFOR MO DIAGNOSIS. Performed By: #### C DAVID HSTROPN ####[facility] Bgrhmoiobw[address] [place] [address]Dr. Chapisrenu Pulliam XR CHEST 1 Von 09-26-2022 XR CHEST 1 V Normal [facility] XR CHEST 1 Von 09-16-2022 XR CHEST 1 V Normal [facility] CBC AUTO DIFFon 09-15-2022 BASO # 0.0 103/ul Normal 0.0-0.1 [facility] Comment on above: Performed By: #### C BC ####[facility] Jvmlqxpmqk89[address] [place] [address]Dr. Garima Heraclio Basophils/100 WBC (Bld) 0.1 % Critically low 0.2-2.0 [facility] Comment on above: Performed By: #### C BC ####[facility] Hbjclhayqu4797 [place] [address]Dr. Garima Pulliam EO # 0.0 103/ul Normal 0.0-0.7 [facility] Comment on above: Performed By: #### C BC ####[facility] Iazhyqiszc1176 [place] [address]Dr. Garima Pulliam Eosinophils/100 WBC (Bld) 0.1 % Critically low 0.9-7.0 [facility] Comment on above: Performed By: #### C BC ####[facility] Ugtnspkxsl8[address] [place] [address]Dr. Garima Pulliam Erythrocyte distribution width (RBC) [Ratio] 14.1 % Normal 11.0-15.0 [facility] Comment on above: Performed By: #### C BC ####[facility] Dqmjyphycl7211[address] [place], [place] [address]Dr. Garima Pulliam Hematocrit (Bld) [Volume fraction] 46.1 % Normal 42.0-54.0 [facility] Comment on above: Performed By: #### C BC ####[facility] Njytymtvdi056[address] [place], [place] [address]Dr. Garima Pulliam Hemoglobin (Bld) [Mass/Vol] 15.0 g/dL Normal 14.0-18.0 [facility] Comment on above: Performed By: #### C BC ####[facility] Ovlwfqcdgf666[address] [place], [place] [address]Dr. Garima Pulliam IG # 0.03 10e3/ul Normal 0.00-0.03 [facility] Comment on above: Performed By: #### C BC ####[facility] Yqrqrzglle996[address] [place], [place] [address]Dr. Garima Pulliam IG % 0.3 % Normal 0.0-0.5 [facility] Comment on above: Performed By: #### C BC ####[facility] Vpsijqhohu346[address] [place], [place] [address]Dr. Garima Pulliam LYMPH # 0.6 103/ul Critically low 1.2-3.8 [facility] Comment on above: Performed By: #### C BC ####[facility] Sghihdbwkl648[address] [place], [place] [address]Dr. Garima Pulliam Lymphocytes/100 WBC (Bld) 5.8 % Critically low 20.5-60.0 [facility] Comment on above: Performed By: #### C BC ####[facility] [address]bytgxvbuy[address] [place] [address]Dr. Garima Pulliam MANUAL DIFF REQ NO Normal [facility] Comment on above: Performed By: #### C BC ####[facility] Bwajytkavd70[address] [place] [address]Dr. Garima Pulliam MCH (RBC) [Entitic mass] 30.2 pg Normal 25.9-34.0 [facility] Comment on above: Performed By: #### C BC ####[facility] Tkhgpytdpu5[address] [place] [address]Dr. Garima Pulliam MCHC (RBC) [Mass/Vol] 32.5 g/dL Normal 29.9-35.2 [facility] Comment on above: Performed By: #### C BC ####[facility] Vpjtvlypal3993 [place] [address]Dr. Garima Pulliam MCV (RBC) [Entitic vol] 92.8 fL Normal 80.0-94.0 [facility] Comment on above: Performed By: #### C BC ####[facility] Aaszwrzvrv[address] [place] [address]Dr. Garima Heraclio MONO # 0.3 103/ul Normal 0.3-0.8 [facility] Comment on above: Performed By: #### C BC ####[facility] Ndrvwrjbsb8134 [place] [address]Dr. Garima Heraclio Monocytes/100 WBC (Bld) 3.2 % Normal 1.7-12.0 [facility] Comment on above: Performed By: #### C BC ####[facility] Iocakaqpjq4545 [place] [address]Dr. Garima Pulliam NEUT # 9.8 103/ul Critically high 1.4-6.5 [facility] Comment on above: Performed By: #### C BC ####[facility] Kwxybpdqmd5154 [place] [address]Dr. Garima Pulliam Neutrophils/100 WBC (Bld) 90.5 % Critically high 43.0-75.0 [facility] Comment on above: Performed By: #### C BC ####[facility] Aqogxzxpkb16[address] [place] [address]Dr. Garima Pulliam Platelet mean volume (Bld) [Entitic vol] 9.4 fL Critically low 9.5-13.5 [facility] Comment on above: Performed By: #### C BC ####[facility] Ruxzktaoxa2[address] [place] [address]Dr. Garima Pulliam PLT 208 103/ul Normal 150-450 [facility] Comment on above: Performed By: #### C BC ####[facility] Fkmblckwoz86[address] [place] [address]Dr. Garima Pulliam RBC 4.97 106/ul Normal 4.70-6.10 [facility] Comment on above: Performed By: #### C BC ####[facility] Wrvmrzoail0127 [place] [address]Dr. Garima Pulliam WBC 10.8 103/ul Normal 4.0-11.0 [facility] Comment on above: Performed By: #### C BC ####[facility] Bwyycjgmqn3563 [place] [address]Dr. Garima Pulliam PROF 14(COMP METB)on 022 Albumin [Mass/Vol] 4.0 g/dL Normal 3.4-5.0 [facility] Comment on above: Performed By: #### C MP ####[facility] Tupootdiyu3839 [place] [address]Dr. Garima Pulliam Albumin/Globulin [Mass ratio] 1.5 {ratio} Normal [facility] Comment on above: Performed By: #### C MP ####[facility] Cgqhphcnvp8680 [place] [address]Dr. Garima Pulliam ALP [Catalytic activity/Vol] 73 U/L Normal 46-116 [facility] Comment on above: Performed By: #### C MP ####[facility] Ouliqvqzlj6129 [place] [address]Dr. Garima Pulliam ALT [Catalytic activity/Vol] 42 U/L Normal 16-63 [facility] Comment on above: Performed By: #### C MP ####[facility] Ddzfhehduc8927 [place] [address]Dr. Garima Pulliam Anion gap [Moles/Vol] 9.1 mmol/L Normal [facility] Comment on above: Performed By: #### C MP ####[facility] Yrhrucavmi30[address] [place], [place] [address]Dr. Garima Pulliam AST [Catalytic activity/Vol] 28 U/L Normal 15-37 [facility] Comment on above: Performed By: #### C MP ####[facility] Xtrlhymtst676[address] [place], [place] [address]Dr. Garima Pulliam Bilirubin [Mass/Vol] 0.6 mg/dL Normal 0.2-1.0 [facility] Comment on above: Performed By: #### C MP ####[facility] Rbhwjzzgdn854[address] [place], [place] [address]Dr. Garima Pulliam Calcium [Mass/Vol] 8.6 mg/dL Normal 8.5-10.1 [facility] Comment on above: Performed By: #### C MP ####[facility] Exifevywsn175756 [address] [place], [place] [address]Dr. Garima Pulliam Chloride [Moles/Vol] 105 mmol/L Normal 98-107 [facility] Comment on above: Performed By: #### C MP ####[facility] Jmkcxlizlq941756 [address] [place], [place] [address]Dr. Garima Pulliam CO2 [Moles/Vol] 28.5 mmol/L Normal 21.0-32.0 [facility] Comment on above: Performed By: #### C MP ####[facility] Sudgydmily9501[address] [place], [place] [address]Dr. Garima Heraclio Creatinine [Mass/Vol] 0.78 mg/dL Normal 0.70-1.30 [facility] Comment on above: Performed By: #### C MP ####[facility] Oowhfbndqj9211[address] [place], [place] [address]Dr. Chapisrenu Heraclio EGFR-AF IRANIAN >60 Normal >=60 [facility] Comment on above: Performed By: #### C MP ####[facility] Yfsvifzvqa400[address] [place], [place] [address]Dr. Garima Pulliam EGFR-NON AF IRANIAN >60 Normal >=60 [facility] Comment on above: Performed By: #### C MP ####[facility] Bigipynsht2673 [place] [address]Dr. Garima Pulliam Globulin (S) [Mass/Vol] 2.7 g/dL Normal [facility] Comment on above: Performed By: #### C MP ####[facility] Mjshvaizlc3301 [place] [address]Dr. Garima Pulliam Glucose [Mass/Vol] 220 mg/dL Critically high 74-106 T [facility] Comment on above: Performed By: #### C MP ####[facility] Xsmvbxroev1551 [place] [address]Dr. Garima Pulliam Potassium [Moles/Vol] 3.6 mmol/L Normal 3.5-5.1 [facility] Comment on above: Performed By: #### C MP ####[facility] Xugtgzktal5800[address] [place], [place] [address]Dr. Garima Pulliam Protein [Mass/Vol] 6.7 g/dL Normal 6.4-8.2 [facility] Comment on above: Performed By: #### C MP ####[facility] Giyuhyxmlf735[address] [place], [place] [address]Dr. Garima Pulliam Sodium [Moles/Vol] 139 mmol/L Normal 136-145 [facility] Comment on above: Performed By: #### C MP ####[facility] Hempmfqnay327[address] [place], [place] [address]Dr. Garima Pulliam Urea nitrogen [Mass/Vol] 11.0 mg/dL Normal 7.0-18.0 [facility] Comment on above: Performed By: #### C MP ####[facility] Mhlhsmwzbh1928[address] [place], [place] [address]Dr. Garima Pulliam Urea nitrogen/Creatinine [Mass ratio] 14.1 mg/mg Normal [facility] Comment on above: Performed By: #### C MP ####[facility] Oeybargcvu7575[address] [place], [place] [address]Dr. Garima Pulliam CARDIAC NASH 3-6on 2 CK [Catalytic activity/Vol] 240 U/L Normal 39-308 [facility] Comment on above: Performed By: #### C MREP ####[facility] Enrsrodcnw86[address] [place] [address]Dr. Garima Pulliam CK.MB [Mass/Vol] 10.38 ng/mL Critically high <=3.60 [facility] Comment on above: Performed By: #### C MREP ####[facility] Touxuinadu1536 [place] [address]Dr. Garima Pulliam HSTROP 18.5 pg/mL Normal 4.0-76.1 [facility] Comment on above: Result Comment: CUT- OFF POINTS HAVE BEEN ESTABLISHED BASED ON THE FOURTH UNIVERSAL DEFINITIONS OF MYOCARDIALINFARCTION. THE UPPER REFERENCE LIMIT (URL) OF TROPONIN, DEFINED THE 99TH PERCENTILE OFcTnI DISTRIBUTION IN A REFERENCE POPULATION, HAS BEEN CONFIRMED THE DECISION THRESHOLDFOR MO DIAGNOSIS. Performed By: #### C MREP ####[facility] Pwdziqpwpu7464 [place] [address]Dr. Garima Pulliam CK [Catalytic activity/Vol] 257 U/L Normal 39-308 [facility] Comment on above: Performed By: #### C MREP ####[facility] Wupzpwdcxz634[address] [place], [place] [address]Dr. Garima Pulliam CK.MB [Mass/Vol] 9.89 ng/mL Critically high <=3.60 [facility] Comment on above: Performed By: #### C MREP ####[facility] Jmxncxxnza0915[address] [place], [place] [address]Dr. Garima Pulliam HSTROP 16.9 pg/mL Normal 4.0-76.1 [facility] Comment on above: Result Comment: CUT- OFF POINTS HAVE BEEN ESTABLISHED BASED ON THE FOURTH UNIVERSAL DEFINITIONS OF MYOCARDIALINFARCTION. THE UPPER REFERENCE LIMIT (URL) OF TROPONIN, DEFINED THE 99TH PERCENTILE OFcTnI DISTRIBUTION IN A REFERENCE POPULATION, HAS BEEN CONFIRMED THE DECISION THRESHOLDFOR MO DIAGNOSIS. Performed By: #### C MREP ####[facility] Qekdankwxy18[address] [place] [address]Dr. Garima Heraclio CBC AUTO DIFFon 10-22-2022 BASO # 0.0 103/ul Normal 0.0-0.1 [facility] Comment on above: Performed By: #### C BC ####[facility] Hhrnivggdf5635 [place] [id number]. Garima Pulliam Basophils/100 WBC (Bld) 0.1 % Critically low 0.2-2.0 [facility] Comment on above: Performed By: #### C BC ####[facility] Lmonwhetxr5450 [place] [address]Dr. Garima Pulliam EO # 0.0 103/ul Normal 0.0-0.7 [facility] Comment on above: Performed By: #### C BC ####[facility] Quggqpkyfe349[address] [place], [place] [address]Dr. Chapisrenu Heraclio Eosinophils/100 WBC (Bld) 0.0 % Critically low 0.9-7.0 [facility] Comment on above: Performed By: #### C BC ####[facility] Hywdqsmahn134[address] [place], [place] [address]Dr. Garima Pulliam Erythrocyte distribution width (RBC) [Ratio] 13.6 % Normal 11.0-15.0 [facility] Comment on above: Performed By: #### C BC ####[facility] Xiblpyaywf5217[address] [place], [place] [address]Dr. Garima Pulliam Hematocrit (Bld) [Volume fraction] 48.2 % Normal 42.0-54.0 [facility] Comment on above: Performed By: #### C BC ####[facility] Bgwqleaunf7764[address] [place], [place] [address]Dr. Garima Pulliam Hemoglobin (Bld) [Mass/Vol] 16.0 g/dL Normal 14.0-18.0 [facility] Comment on above: Performed By: #### C BC ####[facility] Qnwoxvmmpx887[address] [place], [place] [address]Dr. Chapisrenu Heraclio IG # 0.02 10e3/ul Normal 0.00-0.03 [facility] Comment on above: Performed By: #### C BC ####[facility] Qryrrybiwn6214 [place] [id number]. Garima Pulliam IG % 0.3 % Normal 0.0-0.5 [facility] Comment on above: Performed By: #### C BC ####[facility] Gxtmwswpdy6993 [place] [address]Dr. Garima Heraclio LYMPH # 0.5 103/ul Critically low 1.2-3.8 [facility] Comment on above: Performed By: #### C BC ####[facility] Ddldepuufn4964 [place] [address]Dr. Garima Heraclio Lymphocytes/100 WBC (Bld) 7.7 % Critically low 20.5-60.0 [facility] Comment on above: Performed By: #### C BC ####[facility] Ngieledoem3224[address] [place], [place] [address]Dr. Chapisrenu Pulliam MANUAL DIFF REQ NO Normal [facility] Comment on above: Performed By: #### C BC ####[facility] Qgurcdnegw335[address] [place], [place] [address]Dr. Garima Heraclio MCH (RBC) [Entitic mass] 30.6 pg Normal 25.9-34.0 [facility] Comment on above: Performed By: #### C BC ####[facility] Guncdzhnmn924[address] [place], [place] [address]Dr. Garima Pulliam MCHC (RBC) [Mass/Vol] 33.2 g/dL Normal 29.9-35.2 [facility] Comment on above: Performed By: #### C BC ####[facility] Wxkvqmizjb211[address] [place], [place] [address]Dr. Garima Heraclio MCV (RBC) [Entitic vol] 92.2 fL Normal 80.0-94.0 [facility] Comment on above: Performed By: #### C BC ####[facility] Kninoxhejd970[address] [place], [place] [address]Dr. Garima Pulliam MONO # 0.0 103/ul Critically low 0.3-0.8 [facility] Comment on above: Performed By: #### C BC ####[facility] Pxodevssfq8240 [place] [id number]. Garima Pulliam Monocytes/100 WBC (Bld) 0.4 % Critically low 1.7-12.0 [facility] Comment on above: Performed By: #### C BC ####[facility] Kxthniczyx[address] [place] [id number]. Garima Pulliam NEUT # 6.2 103/ul Normal 1.4-6.5 [facility] Comment on above: Performed By: #### C BC ####[facility] [address] [place] [address]Dr. Garima Pulliam Neutrophils/100 WBC (Bld) 91.5 % Critically high 43.0-75.0 [facility] Comment on above: Performed By: #### C BC ####[facility] Mrqoxldswu[address] [place] [address]Dr. Garima Pulliam Platelet mean volume (Bld) [Entitic vol] 8.7 fL Critically low 9.5-13.5 [facility] Comment on above: Performed By: #### C BC ####[facility] Uhxnqukxyh[address] [place] [address]Dr. Garima Pulliam PLT 179 103/ul Normal 150-450 [facility] Comment on above: Performed By: #### C BC ####[facility] [address] [place] [id number]. Garima Pulliam RBC 5.23 106/ul Normal 4.70-6.10 [facility] Comment on above: Performed By: #### C BC ####[facility] Qujj[address]iigz[address] [place] [address]Dr. Garima Pulliam WBC 6.7 103/ul Normal 4.0-11.0 [facility] Comment on above: Performed By: #### C BC ####[facility] Dbkvehtvbt59[address] [place] [address]Dr. Garima Pulliam PROF CHEM 8 (BAS METB)on Anion gap [Moles/Vol] 12.1 mmol/L Normal [facility] Comment on above: Performed By: #### B MP ####[facility] Sz[address] [place] [id number]. Garima Pulliam Calcium [Mass/Vol] 8.7 mg/dL Normal 8.5-10.1 [facility] Comment on above: Performed By: #### B MP ####[facility] Sbugwfvbeb[address] [place] [id number]. Garima Pulliam Chloride [Moles/Vol] 105 mmol/L Normal 98-107 [facility] Comment on above: Performed By: #### B MP ####[facility] Bubdpkreye[address] [place] [id number]. Garima Pulliam CO2 [Moles/Vol] 25.5 mmol/L Normal 21.0-32.0 [facility] Comment on above: Performed By: #### B MP ####[facility] Rkuolgxsto[address] [place] [address]Dr. Garima Pulliam Creatinine [Mass/Vol] 0.63 mg/dL Critically low 0.70-1.30 [facility] Comment on above: Performed By: #### B MP ####[facility] Zbgxahvqao6[address] [place] [address]Dr. Garima Pulliam EGFR-AF IRANIAN >60 Normal >=60 [facility] Comment on above: Performed By: #### B MP ####[facility] Tybymxemka35[address] [place] [address]Dr. Garima Pulliam EGFR-NON AF IRANIAN >60 Normal >=60 [facility] Comment on above: Performed By: #### B MP ####[facility] Iffcvgzhtc8174 [place] [address]Dr. Garima Pulliam Glucose [Mass/Vol] 162 mg/dL Critically high 74-106 [facility] Comment on above: Performed By: #### B MP ####[facility] Ev[address] [place], [place] [address]Dr. Garima Pulliam Potassium [Moles/Vol] 3.6 mmol/L Normal 3.5-5.1 [facility] Comment on above: Performed By: #### B MP ####[facility] Y[address] [place], [place] [address]Dr. Garima Pulliam Sodium [Moles/Vol] 139 mmol/L Normal 136-145 [facility] Comment on above: Performed By: #### B DAVID ####[facility] Mdvkrneuvz8821 [place] [address]Dr. Garima Pulliam Urea nitrogen [Mass/Vol] 9.0 mg/dL Normal 7.0-18.0 [facility] Comment on above: Performed By: #### B DAVID ####[facility] Cysewifyxj4[address] [place] [address]Dr. Garima Pulliam Urea nitrogen/Creatinine [Mass ratio] 14.3 mg/mg Normal [facility] Comment on above: Performed By: #### B DAVID ####[facility] Mdpjifpeqa[address] [place] [address]Dr. Chapisrenu Pulliam CARDIAC NASH ADMITon 09-12- 022 CK [Catalytic activity/Vol] 304 U/L Normal 39-308 [facility] Comment on above: Performed By: #### B NANCY HERNANDEZ ####[facility] Lhzfqzpzll[address] [place] [address]Dr. Garima Pulliam CK.MB [Mass/Vol] 11.81 ng/mL Critically high <=3.60 [facility] Comment on above: Performed By: #### B NANCY HERNANDEZ ####[facility] Hmkbfaitkd7[address] [place] [address]Dr. Garima Heraclio HSTROP 13.3 pg/mL Normal 4.0-76.1 [facility] Comment on above: Result Comment: CUT- OFF POINTS HAVE BEEN ESTABLISHED BASED ON THE FOURTH UNIVERSAL DEFINITIONS OF MYOCARDIALINFARCTION. THE UPPER REFERENCE LIMIT (URL) OF TROPONIN, DEFINED THE 99TH PERCENTILE OFcTnI DISTRIBUTION IN A REFERENCE POPULATION, HAS BEEN CONFIRMED THE DECISION THRESHOLDFOR MO DIAGNOSIS. Performed By: #### B NANCY HERNANDEZ ####[facility] Lufpenppmq[address]203 [place] [address]Dr. Garima Pulliam DORIS 133 ng/mL Critically high 16-96 [facility] Comment on above: Performed By: #### B NANCY HERNANDEZ ####[facility] Ghzuggjlfi6140 [place] [address]Dr. Garima Pulliam CBC AUTO DIFFon 09-12-2022 BASO # 0.0 103/ul Normal 0.0-0.1 [facility] Comment on above: Performed By: #### C BC ####[facility] [address] [place], [place] [address]Dr. Garima Heraclio Basophils/100 WBC (Bld) 0.2 % Normal 0.2-2.0 [facility] Comment on above: Performed By: #### C BC ####[facility] T[address] [place], [place] [address]Dr. Garima Heraclio EO # 0.2 103/ul Normal 0.0-0.7 [facility] Comment on above: Performed By: #### C BC ####[facility] Whawcl[address]km[address] [place], [place] [address]Dr. Chapisrenu Pulliam Eosinophils/100 WBC (Bld) 1.3 % Normal 0.9-7.0 [facility] Comment on above: Performed By: #### C BC ####[facility] Diwztvlqsm[address] [place], [place] [address]Dr. Garima Pulliam Erythrocyte distribution width (RBC) [Ratio] 13.7 % Normal 11.0-15.0 [facility] Comment on above: Performed By: #### C BC ####[facility] Xrvl[address] [place], [place] [address]Dr. Garima Pulliam Hematocrit (Bld) [Volume fraction] 46.4 % Normal 42.0-54.0 [facility] Comment on above: Performed By: #### C BC ####[facility] Hxttzizp[address] [place], [place] [address]Dr. Garima Pulliam Hemoglobin (Bld) [Mass/Vol] 15.7 g/dL Normal 14.0-18.0 [facility] Comment on above: Performed By: #### C BC ####[facility] Efwj[address]cgbe[address] [place], [place] [address]Dr. Garima Pulliam IG # 0.04 10e3/ul Critically high 0.00-0.03 [facility] Comment on above: Performed By: #### C BC ####[facility] Rlfpejaczc[address] [place] [id number]. Garima Pulliam IG % 0.3 % Normal 0.0-0.5 [facility] Comment on above: Performed By: #### C BC ####[facility] Ykhzbpsnzk[address] [place] [id number]. Garima Pulliam LYMPH # 1.7 103/ul Normal 1.2-3.8 [facility] Comment on above: Performed By: #### C BC ####[facility] Qrnzhldsta8221 [place] [address]Dr. Garima Pulliam Lymphocytes/100 WBC (Bld) 11.5 % Critically low 20.5-60.0 [facility] Comment on above: Performed By: #### C BC ####[facility] Fhzuybkile98[address] [place] [address]Dr. Garima Pulliam MANUAL DIFF REQ NO Normal [facility] Comment on above: Performed By: #### C BC ####[facility] Qyouszeaey1214 [place] [address]Dr. Garima Pulliam MCH (RBC) [Entitic mass] 31.0 pg Normal 25.9-34.0 [facility] Comment on above: Performed By: #### C BC ####[facility] Apcljsrlda4[address] [place] [address]Dr. Garima Pulliam MCHC (RBC) [Mass/Vol] 33.8 g/dL Normal 29.9-35.2 [facility] Comment on above: Performed By: #### C BC ####[facility] Z[address]ujqehrq[address] [place] [address]Dr. Garima Pulliam MCV (RBC) [Entitic vol] 91.7 fL Normal 80.0-94.0 [facility] Comment on above: Performed By: #### C BC ####[facility] Ozmytzwabr[address] [place] [address]Dr. Garima Heraclio MONO # 0.8 103/ul Normal 0.3-0.8 [facility] Comment on above: Performed By: #### C BC ####[facility] Pgfnkjvtrn97[address] [place] [address]Dr. Garima Pulliam Monocytes/100 WBC (Bld) 5.2 % Normal 1.7-12.0 [facility] Comment on above: Performed By: #### C BC ####[facility] Hzkhqzwvbz6327 [place] [address]Dr. Garima Pulliam NEUT # 11.7 103/ul Critically high 1.4-6.5 [facility] Comment on above: Performed By: #### C BC ####[facility] Xpqrwccoyc22[address] [place] [address]Dr. Garima Pulliam Neutrophils/100 WBC (Bld) 81.5 % Critically high 43.0-75.0 [facility] Comment on above: Performed By: #### C BC ####[facility] Kjpzjnqeyy[address] [place] [address]Dr. Garima Pulliam Platelet mean volume (Bld) [Entitic vol] 8.6 fL Critically low 9.5-13.5 [facility] Comment on above: Performed By: #### C BC ####[facility] Ymnkotojfa[address] [place] [id number]. Garima Pulliam PLT 191 103/ul Normal 150-450 [facility] Comment on above: Performed By: #### C BC ####[facility] Ectwejwz[address] [place], [place] [address]Dr. Garima Pulliam RBC 5.06 106/ul Normal 4.70-6.10 [facility] Comment on above: Performed By: #### C BC ####[facility] [address]se[address] [place], [place] [address]Dr. Garima Pulliam WBC 14.4 103/ul Critically high 4.0-11.0 [facility] Comment on above: Performed By: #### C BC ####[facility] Mjzck[address]iqu[address] [place], [place] [address]Dr. Garima Pulliam [facility] SARS-CoV-2 (COVID-19) RNA MARIE+probe Ql (Unsp spec) Not detected Normal NOT DETECTED [facility] Comment on above: Result Comment: When [...] for this test is supported by the [employer] of Health and Human Service's declaration that [...] Performed By: #### C VDTBH ####[facility] Tfmvojv[address] [place], [place] [address]Dr. Garima Pulliam LACTATE/LACTIC ACIDon 2021 Lactate [Moles/Vol] 1.0 mmol/L Normal 0.4-1.9 [facility] Comment on above: Performed By: #### L ACT ####[facility] Delvndrnyz[address] [place], [place] [address]Dr. Garima Pulliam PROF CHEM 8 (BAS METB)on Anion gap [Moles/Vol] 11.6 mmol/L Normal [facility] Comment on above: Performed By: #### B NANCY HERNANDEZ ####[facility] Wfaluikqyh49[address] [place] [address]Dr. Garima Pulliam Calcium [Mass/Vol] 9.2 mg/dL Normal 8.5-10.1 [facility] Comment on above: Performed By: #### B NANCY HERNANDEZ ####[facility] Khyvyekyga[address] [place] [address]Dr. Garima Pulliam Chloride [Moles/Vol] 105 mmol/L Normal 98-107 [facility] Comment on above: Performed By: #### B MP, CMADM ####[facility] Uayvuxdnuh66[address] [place] [id number]. Garima Pulliam CO2 [Moles/Vol] 25.9 mmol/L Normal 21.0-32.0 [facility] Comment on above: Performed By: #### B DAVID, CMADM ####[facility] Xqcyodewms0621 [place] [address]Dr. Garima Pulliam Creatinine [Mass/Vol] 0.72 mg/dL Normal 0.70-1.30 [facility] Comment on above: Performed By: #### B DAVID, CMADM ####[facility] Jpculcfcyy[address]2 [place] [address]Dr. Garima Pulliam EGFR-AF IRANIAN >60 Normal >=60 [facility] Comment on above: Performed By: #### B DAVID, CMADM ####[facility] Ijemedzzts[address] [place] [address]Dr. Chapisrenu Pulliam EGFR-NON AF IRANIAN >60 Normal >=60 [facility] Comment on above: Performed By: #### B DAVID, CMAANA ROSA ####[facility] Ndzgrovink[address] [place] [address]Dr. Garima Pulliam Glucose [Mass/Vol] 111 mg/dL Critically high 74-106 [facility] Comment on above: Performed By: #### B DAVID, CMADM ####[facility] Ontlxdilfj5[address] [place] [address]Dr. Chapisrenu Pulliam Potassium [Moles/Vol] 3.5 mmol/L Normal 3.5-5.1 [facility] Comment on above: Performed By: #### B DAVID, CMADM ####[facility] Qmnlxwkara9073 [place] [address]Dr. Chapisrenu Pulliam Sodium [Moles/Vol] 139 mmol/L Normal 136-145 [facility] Comment on above: Performed By: #### B DAVID, CMADM ####[facility] Gnlgvkndyl1354 [place] [address]Dr. Garima Pulliam Urea nitrogen [Mass/Vol] 7.0 mg/dL Normal 7.0-18.0 [facility] Comment on above: Performed By: #### B DAVID, CMADM ####[facility] [address]rmsrm[address] [place], [place] [address]Nq. Garima Pulliam Urea nitrogen/Creatinine [Mass ratio] 9.7 mg/mg Normal [facility] Comment on above: Performed By: #### B MP, CMADM ####[facility] [address]xf[address] [place], [place] [address]Ui. Garima Pulliam XR CHEST 1 Von 09-12-2022 XR CHEST 1 V Normal [facility] Encounters Encounter Date Encounter Type Care [...] Facility:H1 Payers Date Payer Category Payer Unknown [id number] 1960 Medicaid [id number] 1960 Unknown [id number] 1960 Unknown [id number] 1954 Unknown [id number] 2.16.84 0.1.026194.3.579.2.593 1954 Unknown [id number] 2.16.84 0.1.182723.3.579.2.593 1954 Unknown [id number] 2.16.84 0.1.018964.3.579.2.593 1954 Unknown [id number] 2.16.84 0.1.598593.3.579.2.593 1954 Unknown [id number] 2.16.84 0.1.197674.3.579.2.593 1954 Unknown [id number] 2.16.84 0.1.629132.3.579.2.593 1954 Unknown [id number] 2.16.84 0.1.750012.3.579.2.593 1954 Unknown [id number] 2.16.84 0.1.972525.3.579.2.593 1954 Unknown [id number] 2.16.84 0.1.356813.3.579.2.593 1954 Unknown [id number] 2.16.84 0.1.699884.3.579.2.593 1954 Unknown [id number] 2.16.84 0.1.981407.3.579.2.593 1954 Unknown [id number] 2.16.84 0.1.621396.3.579.2.593 1954 Unknown [id number] 2.16.84 0.1.571493.3.579.2.593 1954 Unknown [id number] 2.16.84 0.1.209190.3.579.2.593 1954 Unknown [id number] 2.16.84 0.1.060578.3.579.2.593 1954 Unknown [id number] 2.16.84 0.1.023042.3.579.2.593 1954 Unknown [id number] 2.16.84 0.1.426866.3.579.2.593 1954 Unknown [id number] 2.16.84 0.1.343439.3.579.2.593 1954 Unknown [id number] 2.16.84 0.1.485091.3.579.2.593 1954 Unknown [id number] 2.16.84 0.1.495456.3.579.2.593 Summary Purpose Family History No Family History Records Found Advance Directives No Advanced Directives Records Found Additional Source Comments (unrecognized sect ion and content) No Status Records Found INFORMATION SOURCE (unrecogn ized section and content) DATE CREATED AUTHOR 04/08/2023 [facility] FOR RECORDS PERTAINING TO PATIENTS WHO [...] ON THE PRIMARY CLINICAL RECORDS. [facility] [employer] [facility]. provides no warranty or guarantee of the accuracy or completeness of information in this document.
[2024-11-03 18:25] VITALS: BP 178/90; PULSE 84; TEMP 36.8; O2SAT 94; BMI 24.4
--- NOTE | 2024-11-03 20:11 | ED.SOB1 ---
HPI - SOB/Dyspnea General Chief Complaint: Shortness of Breath/Dyspnea Stated Complaint: SHORTNESS OF BREATH Time Seen by Provider: 11/03/24 18:35 Source: patient Mode of arrival: Wheelchair Limitations: no limitations History of Present Illness HPI Narrative: This 69-year-old male with a history of COPD who continues to smoke presents for evaluation of shortness of breath and request medication refills. The patient typically uses albuterol MDI and albuterol nebulizer solution but is out of both. He states he missed an appointment [facility] which is why he thinks the medications were not called in for him. He has not had any fever. He has not had any chest pain. Related Data Home Medications ?Medication ?Instructions ?Recorded ?Confirmed albuterol sulfate 90 mcg/actuation 2 inh inhalation Q6H PRN shortness 03/13/24 10/02/24 aerosol inhaler of breath or wheezing Previous Rx's ?Medication ?Instructions ?Recorded losartan 100 mg tablet 100 mg PO DAILY #30 tabs 12/27/23 albuterol sulfate 2.5 mg/3 mL 2.5 mg (3 mL) inhalation Q6H PRN 05/26/24 (0.083 %) solution for nebulization shortness of breath or wheezing #90 mL loratadine 10 mg tablet (Claritin) 10 mg PO DAILY #20 tabs 05/30/24 albuterol sulfate 2.5 mg/3 mL 2.5 mg (3 mL) inhalation Q6H PRN 08/07/24 (0.083 %) solution for nebulization shortness of breath or wheezing #90 mL albuterol sulfate 90 mcg/actuation 2 inh inhalation Q4H PRN shortness 08/07/24 aerosol inhaler of breath or wheezing #8.5 grams albuterol sulfate 2.5 mg/3 mL 1.25 mg (1.5 mL) inhalation Q6H 09/04/24 (0.083 %) solution for nebulization PRN bronchospasm #75 mL albuterol sulfate 90 mcg/actuation 2 inh inhalation Q6H PRN shortness 09/04/24 aerosol inhaler of breath or wheezing #6.7 grams albuterol sulfate 2.5 mg/3 mL 2.5 mg (3 mL) inhalation Q6H PRN 09/12/24 (0.083 %) solution for nebulization shortness of breath or wheezing #90 mL azithromycin 250 mg tablet See Rx Instructions PO .COMPLEX #6 09/21/24 (Zithromax Z-Luis) tabs prednisone 20 mg tablet See Rx Instructions .Route 09/21/24 .COMPLEX #12 tabs albuterol sulfate 2.5 mg/0.5 mL 2.5 mg (0.5 mL) inhalation Q4H PRN 10/02/24 solution for nebulization shortness of breath or wheezing #30 ea albuterol sulfate 90 mcg/actuation 2 inh inhalation Q4H PRN shortness 10/02/24 aerosol inhaler of breath or wheezing #6.7 grams albuterol sulfate 2.5 mg/3 mL 2.5 mg (3 mL) inhalation Q6H PRN 10/07/24 (0.083 %) solution for nebulization shortness of breath or wheezing #90 mL albuterol sulfate 90 mcg/actuation 2 inh inhalation Q4H PRN shortness 10/07/24 aerosol inhaler of breath or wheezing #8.5 grams Allergies Allergy/AdvReac Type Severity Reaction Status Date / Time No Known Drug Allergies Allergy Verified 11/03/24 18:32 Review of Systems ROS Status of ROS 10 or more systems reviewed and unremarkable except as noted in history and below [facility] Medical History (Updated 11/03/24 @ 20:17 by Teresa Ag MD) Hypokalemia ?E87.6 - Hypokalemia (ICD-10) New onset type 2 diabetes mellitus ?E11.9 - Type 2 diabetes mellitus without complications (ICD-10) Lower extremity edema ?R60.0 - Localized edema (ICD-10) Edema ?R60.9 - Edema, unspecified (ICD-10) Acute hyperglycemia ?R73.9 - Hyperglycemia, unspecified (ICD-10) Tobacco abuse ?Z72.0 - Tobacco use (ICD-10) HTN (hypertension) ?I10 - Essential (primary) hypertension (ICD-10) Community acquired pneumonia ?J18.9 - Pneumonia, unspecified organism (ICD-10) Chronic obstructive pulmonary disease ?J44.9 - Chronic obstructive pulmonary disease, unspecified (ICD-10) Acute exacerbation of chronic obstructive pulmonary disease (COPD) ?J44.1 - Chronic obstructive pulmonary disease with (acute) exacerbation (ICD-10) RLL pneumonia ?J18.9 - Pneumonia, unspecified organism (ICD-10) COPD (chronic obstructive pulmonary disease) ?J44.9 - Chronic obstructive pulmonary disease, unspecified (ICD-10) Surgical History (Updated 01/29/24 @ 06:45 by Latonia Martin RN) Hx of tonsillectomy ?Z90.89 - Acquired absence of other organs (ICD-10) Family History (Updated 12/25/23 @ 21:28 by Kym Ordaz) Mother Family history of cancer Family history of hypertension Father Family history of cancer Social History Within the past year, how often did you have a drink containing alcohol: 4 or more times a week Within the past year, how many standard drinks containing alcohol did you have on a typical day: 3 or 4 Within the past year, how often did you have six or more drinks on one occasion: less than monthly Total score: 3 Score interpretation: A score of 4 or more indicates drinking is likely to affect patient's safety. Smoking status: Current every day smoker Non-prescribed substance use: cannabis (any form) Previous occupational history: retired Highest level of school completed/degree received: high school graduate Are you now , , , , never or living with a partner: In a typical week, how many times do you talk on the telephone with family, friends, or neighbors: twice per week How often do you get together with friends or relatives: once per week How often do you attend sabianist or denominational services: never Do you belong to any clubs or organizations such as sabianist groups unions, fraternal or athletic groups, or school groups: no Total score: 1 Score interpretation: A score of less than or equal to 1 indicates the most socially isolated. Little interest or pleasure in doing things: not at all Feeling down, depressed, or hopeless: not at all Feel stressed/tense/nervous/anxious/difficulty sleeping: not at all Do you think of yourself as: straight/heterosexual Gender Identity: male Exam Narrative Exam Narrative: Vital signs and Nursing Notes reviewed: Patient is afebrile with a normal pulse, blood pressure is elevated 178/90, he is not hypoxic with pulse ox 94% on room air General: Awake, alert, oriented, no acute distress, sitting in a chair watching TV HEENT: Normocephalic atraumatic, mucous membranes are moist and pink, eyes are clear, normal conjunctiva, vision is grossly intact Chest: Diffusely diminished breath sounds with occasional expiratory wheezing, no rhonchi or rales, no accessory muscle use, he is speaking in complete sentences CVS: Regular rate and rhythm S1-S2, no murmurs rubs or gallops, pulses are brisk and equal bilaterally ABD: Soft, nondistended, nontender, no rebound guarding or rigidity, bowel sounds are normal, no pulsatile masses appreciated Extremities: 2+ pitting edema of bilateral lower extremities Skin: Normal in appearance without rash,pallor, petechiae or purpura Neuro: No focal deficits Constitutional Vital Signs, click to edit/add: Last Vital Signs Temp 98.3 F 11/03/24 18:25 Pulse 84 11/03/24 18:25 Resp 16 11/03/24 18:25 BP 178/90 H 11/03/24 18:25 Pulse Ox 94 L 11/03/24 18:25 O2 Del Method Room Air 11/03/24 18:25 Course Vital Signs Vital signs: Vital Signs Temperature 98.3 F 11/03/24 18:25 Pulse Rate 84 11/03/24 18:25 Respiratory Rate 16 11/03/24 18:25 Blood Pressure 178/90 H 11/03/24 18:25 Pulse Oximetry 94 L 11/03/24 18:25 Oxygen Delivery Method Room Air 11/03/24 18:25 Temperature 98.3 F 11/03/24 18:25 Pulse Rate 84 11/03/24 18:25 Respiratory Rate 16 11/03/24 18:25 Blood Pressure 178/90 H 11/03/24 18:25 Pulse Oximetry 94 L 11/03/24 18:25 Oxygen Delivery Method Room Air 11/03/24 18:25 MDM - SOB/Dyspnea MDM Narrative Medical decision making narrative: This 69-year-old male who is well-known to this emergency department presents for evaluation of shortness of breath and request medication refills for his albuterol MDI and albuterol nebulizer solution. [facility] and states he missed an appointment and his medications were not called in for him. He denies any chest pain shortness of breath. He denies any fever. He states the cold weather often makes his COPD worse. He does continue to smoke. His lungs are diffusely diminished with occasional expiratory wheezes. He was given a DuoNeb treatment and 2 albuterol Nebules for home use until he can get his prescriptions filled. He was also given an albuterol MDI and a prescription for 2 albuterol MDI to use until he can be seen by his family physician [facility] the [facility]. Discharge Plan Discharge Chief Complaint: Shortness of Breath/Dyspnea Clinical Impression: COPD (chronic obstructive pulmonary disease), Medication refill Patient Disposition: Home, Self-Care Time of Disposition Decision: 20:16 Condition: Good Prescriptions / Home Meds: No Action losartan 100 mg tablet 100 mg PO DAILY Qty: 30 11RF albuterol sulfate 90 mcg/actuation HFA aerosol inhaler 2 inh inhalation Q6H PRN (Reason: shortness of breath or wheezing) albuterol sulfate 2.5 mg /3 mL (0.083 %) solution for nebulization 2.5 mg inhalation Q6H PRN (Reason: shortness of breath or wheezing) Qty: 90 0RF albuterol sulfate 2.5 mg /3 mL (0.083 %) solution for nebulization 2.5 mg inhalation Q6H PRN (Reason: shortness of breath or wheezing) Qty: 90 0RF albuterol sulfate 90 mcg/actuation HFA aerosol inhaler 2 inh inhalation Q4H PRN (Reason: shortness of breath or wheezing) Qty: 8.5 0RF albuterol sulfate 2.5 mg /3 mL (0.083 %) solution for nebulization 2.5 mg inhalation Q6H PRN (Reason: shortness of breath or wheezing) Qty: 90 0RF azithromycin [Zithromax Z-Luis] 250 mg tablet See Rx Instructions .ROUTE .COMPLEX Qty: 6 0RF Rx Instructions: For 250 mg dose pack: take 500 mg today (day 1), then 250 mg for 4 days (days 2-5) prednisone 20 mg tablet See Rx Instructions .ROUTE .COMPLEX Qty: 12 0RF Rx Instructions: 3 tabs daily for 2 days, then 2 tabs daily for 2 days, then 1 tab daily for 2 days albuterol sulfate 2.5 mg/0.5 mL solution for nebulization 2.5 mg inhalation Q4H PRN (Reason: shortness of breath or wheezing) Qty: 30 2RF albuterol sulfate 90 mcg/actuation HFA aerosol inhaler 2 inh inhalation Q4H PRN (Reason: shortness of breath or wheezing) Qty: 6.7 0RF loratadine [Claritin] 10 mg tablet 10 mg PO DAILY Qty: 20 0RF albuterol sulfate 2.5 mg /3 mL (0.083 %) solution for nebulization 1.25 mg inhalation Q6H PRN (Reason: bronchospasm) Qty: 75 0RF albuterol sulfate 90 mcg/actuation HFA aerosol inhaler 2 inh inhalation Q6H PRN (Reason: shortness of breath or wheezing) Qty: 6.7 0RF albuterol sulfate 90 mcg/actuation HFA aerosol inhaler 2 inh inhalation Q4H PRN (Reason: shortness of breath or wheezing) Qty: 8.5 0RF albuterol sulfate 2.5 mg /3 mL (0.083 %) solution for nebulization 2.5 mg inhalation Q6H PRN (Reason: shortness of breath or wheezing) Qty: 90 0RF Print Language: [place] Instructions: COPD (Chronic Obstructive Pulmonary Disease) (ED) Referrals: SERG DUENAS [Primary Care Provider] - 1 week
[2024-11-03] MEDS: IPRATROPIUM/ALBUTEROL SULFATE 3 ML AMPUL.NEB IH (20:24)
[2024-11-03] MEDS: ALBUTEROL SULFATE 2.5 MG/3 ML VIAL NEB IH ×2 (20:29→20:31)
[2024-11-03 20:30] VITALS: PULSE 89; O2SAT 94
[2024-11-03] MEDS: ALBUTEROL SULFATE 200 PUFF/6.7 GM INHALER IH (20:30)
--- NOTE | 2024-11-03 20:45 | PC.NURSE ---
i gave this patient verbal and written discharge papers and voices yes to understanding these. at time of discharge this patient voices no concerns and shows no signs of distress
== END 2024-11-03 20:47 | disposition home or self-care (01) ==
PROVIDERS: Emergency Provider Emergency Medicine
DX: Z76.0 Encounter for issue of repeat prescription (principal); J44.9 Chronic obstructive pulmonary disease, unspecified; R06.02 Shortness of breath; F17.200 Nicotine dependence, unspecified, uncomplicated
CPT/HCPCS: 94640; 99285

== ENCOUNTER 2024-11-11 05:44 | Emergency (ER) | payer MEDICARE, SELFPAY ==
[2024-11-11 05:48] VITALS: BP 172/98; PULSE 62; TEMP 36.7; O2SAT 95; BMI 24.4
--- OUTSIDE RECORDS SUMMARY | 2024-11-11 05:57 | XMS_ITS | CCD ---
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 Garima Pulliam Basophils/100 WBC (Bld) 0.3 % Normal 0.2-2.0 [facility] Comment on above: Performed By: #### C BC ####[facility] Zbcgcxwtsk4143 [place] [address]DrAdalberto Pulliam EO # 0.3 103/ul Normal 0.0-0.7 [facility] Comment on above: Performed By: #### C BC ####[facility] Pihznokxpy[address] [place], [place] [address]Dr. Garima Pulliam Eosinophils/100 WBC (Bld) 2.8 % Normal 0.9-7.0 [facility] Comment on above: Performed By: #### C BC ####[facility] Vhpxupwtzu04[address] [place] [address]Dr. Garima Pulliam Erythrocyte distribution width (RBC) [Ratio] 13.4 % Normal 11.0-15.0 [facility] Comment on above: Performed By: #### C BC ####[facility] Waovcaeykz[address] [place] [address]Dr. Garima Pulliam Hematocrit (Bld) [Volume fraction] 45.7 % Normal 42.0-54.0 [facility] Comment on above: Performed By: #### C BC ####[facility] Ksgehcwxev8[address] [place] [address]Dr. Garima Pulliam Hemoglobin (Bld) [Mass/Vol] 15.2 g/dL Normal 14.0-18.0 [facility] Comment on above: Performed By: #### C BC ####[facility] Dscnwbmzli7[address] [place] [address]Dr. Garima Pulliam IG # 0.02 10e3/ul Normal 0.00-0.03 [facility] Comment on above: Performed By: #### C BC ####[facility] Pmummaxtbv2522 [place] [address]Dr. Garima Pulliam IG % 0.2 % Normal 0.0-0.5 [facility] Comment on above: Performed By: #### C BC ####[facility] Afhhlpaxze39[address] [place] [address]Dr. Garima Pulliam LYMPH # 2.1 103/ul Normal 1.2-3.8 [facility] Comment on above: Performed By: #### C BC ####[facility] Bmapncpolx7507 [place] [address]Dr. Garima Pulliam Lymphocytes/100 WBC (Bld) 23.7 % Normal 20.5-60.0 [facility] Comment on above: Performed By: #### C BC ####[facility] Ybowdlzbgj6[address] [place] [address]Dr. Garima Heraclio MANUAL DIFF REQ NO Normal [facility] Comment on above: Performed By: #### C BC ####[facility] Dpxnpbeahz3647 [place] [address]Dr. Garima Pulliam MCH (RBC) [Entitic mass] 30.4 pg Normal 25.9-34.0 [facility] Comment on above: Performed By: #### C BC ####[facility] Jnziaqfawo1363 [place] [address]Dr. Garima Heraclio MCHC (RBC) [Mass/Vol] 33.3 g/dL Normal 29.9-35.2 [facility] Comment on above: Performed By: #### C BC ####[facility] Yzkqhdijxw[address] [place], [place] [address]Dr. Chapisrenu Pulliam MCV (RBC) [Entitic vol] 91.4 fL Normal 80.0-94.0 [facility] Comment on above: Performed By: #### C BC ####[facility] Mhsjxpgngh[address] [place], [place] [address]Dr. Garima Heraclio MONO # 0.7 103/ul Normal 0.3-0.8 [facility] Comment on above: Performed By: #### C BC ####[facility] Aigzvfkcua52[address] [place], [place] [address]Dr. Chapisrenu Pulliam Monocytes/100 WBC (Bld) 8.3 % Normal 1.7-12.0 [facility] Comment on above: Performed By: #### C BC ####[facility] Rkmftowubp9774 [place] [address]Dr. Chapisrenu Heraclio NEUT # 5.8 103/ul Normal 1.4-6.5 [facility] Comment on above: Performed By: #### C BC ####[facility] Uvollqihxv88[address] [place], [place] [address]Dr. Garima Pulliam Neutrophils/100 WBC (Bld) 64.7 % Normal 43.0-75.0 [facility] Comment on above: Performed By: #### C BC ####[facility] Qddykaeegf2320 [place] [address]Dr. Garima Pulliam Platelet mean volume (Bld) [Entitic vol] 8.6 fL Critically low 9.5-13.5 [facility] Comment on above: Performed By: #### C BC ####[facility] Byfwvfihlf2294 [place] [address]Dr. Garima Pulliam PLT 230 103/ul Normal 150-450 [facility] Comment on above: Performed By: #### C BC ####[facility] Hxfdjjqlcc1555 [place] [address]Dr. Chapisrenu Heraclio RBC 5.00 106/ul Normal 4.70-6.10 [facility] Comment on above: Performed By: #### C BC ####[facility] Zhoxowkflu8635 [place] [address]Dr. Garima Heraclio WBC 9.0 103/ul Normal 4.0-11.0 [facility] Comment on above: Performed By: #### C BC ####[facility] Esxbzerdwb2999 [place] [address]Dr. Garima Pulliam MAGNESIUMon 04-04-2023 Magnesium [Mass/Vol] 1.8 mg/dL Normal 1.8-2.4 [facility] Comment on above: Performed By: #### M G ####[facility] Clhmjuocmc1833 [place] [address]Dr. Chapisrenu Pulliam PROF 14(COMP METB)on 023 Albumin [Mass/Vol] 3.8 g/dL Normal 3.4-5.0 [facility] Comment on above: Performed By: #### C MP ####[facility] Olqnxpebab3227 [place] [address]Dr. Garima Pulliam Albumin/Globulin [Mass ratio] 1.2 {ratio} Normal [facility] Comment on above: Performed By: #### C MP ####[facility] Ollncrdxxj6888 [place] [address]Dr. Garima Heraclio ALP [Catalytic activity/Vol] 84 U/L Normal 46-116 [facility] Comment on above: Performed By: #### C MP ####[facility] Bgjjlhshzz3893 [place] [id number]. Garima Pulliam ALT [Catalytic activity/Vol] 31 U/L Normal 16-63 [facility] Comment on above: Performed By: #### C MP ####[facility] Zorlkgtbik8920 [place] [address]Dr. Garima Pulliam Anion gap [Moles/Vol] 12.2 mmol/L Normal [facility] Comment on above: Performed By: #### C MP ####[facility] Kgdfinqemm7796 [place] [address]Dr. Garima Pulliam AST [Catalytic activity/Vol] 23 U/L Normal 15-37 [facility] Comment on above: Performed By: #### C MP ####[facility] Vwawthxxea[address] [place], [place] [address]Dr. Garima Pulliam Bilirubin [Mass/Vol] 0.5 mg/dL Normal 0.2-1.0 [facility] Comment on above: Performed By: #### C MP ####[facility] Zrqqcbesdm[address] [place], [place] [address]Dr. Garima Pulliam Calcium [Mass/Vol] 9.2 mg/dL Normal 8.5-10.1 [facility] Comment on above: Performed By: #### C MP ####[facility] Bgdjddysmi4164[address] [place], [place] [address]Dr. Garima Pulliam Chloride [Moles/Vol] 103 mmol/L Normal 98-107 [facility] Comment on above: Performed By: #### C MP ####[facility] Rwcqhaxbhv5229 [place] [address]Dr. Garima Pulliam CO2 [Moles/Vol] 28.5 mmol/L Normal 21.0-32.0 [facility] Comment on above: Performed By: #### C MP ####[facility] Nsopawivtn97[address] [place], [place] [address]Dr. Garima Pulliam Creatinine [Mass/Vol] 0.74 mg/dL Normal 0.70-1.30 [facility] Comment on above: Performed By: #### C MP ####[facility] Vkqpxdkfbz4147 [place] [id number]. Garima Pulliam EGFR-AF [facility] LUCIAN >60 Normal >=60 [facility] Comment on above: Performed By: #### C MP ####[facility] Tpengqomab5019 [place] [address]Dr. Garima Heraclio EGFR-NON AF [facility] LUCIAN >60 Normal >=60 [facility] Comment on above: Performed By: #### C MP ####[facility] Euqwuweycy6762 [place] [id number]. Garima Heraclio Globulin (S) [Mass/Vol] 3.1 g/dL Normal [facility] Comment on above: Performed By: #### C MP ####[facility] Jdraguvypv[address] [place], [place] [address]Dr. Garima Heraclio Glucose [Mass/Vol] 93 mg/dL Normal 74-106 [facility] Comment on above: Performed By: #### C MP ####[facility] Oejedsjjar[address] [place], [place] [address]Dr. Garima Heraclio Potassium [Moles/Vol] 3.7 mmol/L Normal 3.5-5.1 [facility] Comment on above: Performed By: #### C MP ####[facility] Motngmmesk463[address] [place], [place] [address]Dr. Garima Heraclio Protein [Mass/Vol] 6.9 g/dL Normal 6.4-8.2 [facility] Comment on above: Performed By: #### C MP ####[facility] Fjdicoxpbu64[address] [place], [place] [address]Dr. Garima Heraclio Sodium [Moles/Vol] 140 mmol/L Normal 136-145 [facility] Comment on above: Performed By: #### C MP ####[facility] Rrzdwttehk096[address] [place], [place] [address]Dr. Garima Pulliam Urea nitrogen [Mass/Vol] 8.0 mg/dL Normal 7.0-18.0 [facility] Comment on above: Performed By: #### C MP ####[facility] Lbckjogddq502[address] [place], [place] [address]Dr. Garima Pulliam Urea nitrogen/Creatinine [Mass ratio] 10.8 mg/mg Normal [facility] Comment on above: Performed By: #### C DAVID ####[facility] Bqbmyjsetj0426 [place] [address]Dr. Garima Pulliam AMMONIAon 03-30-2023 Ammonia (P) [Moles/Vol] 11 umol/L Normal 11-32 [facility] Comment on above: Performed By: #### A MM ####[facility] Ocuammrznt[address] [place], [place] [address]Dr. Garima Pulliam CARDIAC NASH ADMITon 023 CK [Catalytic activity/Vol] 232 U/L Normal 39-308 [facility] Comment on above: Performed By: #### C NANCY HERNANDEZ ####[facility] Wlnecbawpa8560 [place] [address]Dr. Chapisrenu Pulliam CK.MB [Mass/Vol] 4.83 ng/mL Critically high <=3.60 [facility] Comment on above: Performed By: #### C NANCY HERNANDEZ ####[facility] Mhoezxwkzp[address] [place], [place] [address]Dr. Garima Pulliam HSTROP 10.5 pg/mL Normal 4.0-76.1 [facility] Comment on above: Result Comment: CUT- OFF POINTS HAVE BEEN ESTABLISHED BASED ON THE FOURTH UNIVERSAL DEFINITIONS OF MYOCARDIALINFARCTION. THE UPPER REFERENCE LIMIT (URL) OF TROPONIN, DEFINED THE 99TH PERCENTILE OFcTnI DISTRIBUTION IN A REFERENCE POPULATION, HAS BEEN CONFIRMED THE DECISION THRESHOLDFOR PR DIAGNOSIS. Performed By: #### C NANCY HERNANDEZ ####[facility] Owabnefgce88[address] [place], [place] [address]Dr. Garima Heraclio DORIS 79 ng/mL Normal 16-96 [facility] Comment on above: Performed By: #### C NANYC HERNANDEZ ####[facility] Mctqjqwaqd[address] [place], [place] [address]Dr. Garima Heraclio CBC AUTO DIFFon 03-30-2023 BASO # 0.0 103/ul Normal 0.0-0.1 [facility] Comment on above: Performed By: #### C BC ####[facility] Hkeooanrey9374 [place] [id number]. Garima Pulliam Basophils/100 WBC (Bld) 0.1 % Critically low 0.2-2.0 [facility] Comment on above: Performed By: #### C BC ####[facility] Nntmxtodgn3564 [place] [id number]. Garima Pulliam EO # 0.3 103/ul Normal 0.0-0.7 [facility] Comment on above: Performed By: #### C BC ####[facility] Vrsztieenb[address] [place], [place] [id number]. Garima Pulliam Eosinophils/100 WBC (Bld) 3.3 % Normal 0.9-7.0 [facility] Comment on above: Performed By: #### C BC ####[facility] Dorxrliuxj[address] [place], [place] [address]Dr. Garima Pulliam Erythrocyte distribution width (RBC) [Ratio] 13.5 % Normal 11.0-15.0 [facility] Comment on above: Performed By: #### C BC ####[facility] Eurbmsdkyj[address] [place], [place] [address]Dr. Garima Pulliam Hematocrit (Bld) [Volume fraction] 42.9 % Normal 42.0-54.0 [facility] Comment on above: Performed By: #### C BC ####[facility] Owfcgxgpqq32[address] [place], [place] [address]Dr. Garima Pulliam Hemoglobin (Bld) [Mass/Vol] 13.9 g/dL Critically low 14.0-18.0 [facility] Comment on above: Performed By: #### C BC ####[facility] Zhnmvfuvey5070 [place] [id number]. Garima Pulliam IG # 0.01 10e3/ul Normal 0.00-0.03 [facility] Comment on above: Performed By: #### C BC ####[facility] Ctluszpsxr[address] [place], [place] [address]Dr. Garima Pulliam IG % 0.1 % Normal 0.0-0.5 [facility] Comment on above: Performed By: #### C BC ####[facility] Agdzpgbxtk8989 [place] [id number]. Garima Pulliam LYMPH # 1.7 103/ul Normal 1.2-3.8 [facility] Comment on above: Performed By: #### C BC ####[facility] Zaafknqnbz2825 [place], [place] [address]Gq. Garima Pulliam Lymphocytes/100 WBC (Bld) 22.8 % Normal 20.5-60.0 [facility] Comment on above: Performed By: #### C BC ####[facility] Mjwpbjlvev6714 [place] [id number]. Garima Heraclio MANUAL DIFF REQ NO Normal [facility] Comment on above: Performed By: #### C BC ####[facility] Szacuidgfl6367 [place] [id number]. Garima Heraclio MCH (RBC) [Entitic mass] 30.5 pg Normal 25.9-34.0 [facility] Comment on above: Performed By: #### C BC ####[facility] Fvcpxxcggu9283 [place] [address]Dr. Garima Pulliam MCHC (RBC) [Mass/Vol] 32.4 g/dL Normal 29.9-35.2 [facility] Comment on above: Performed By: #### C BC ####[facility] Fyhutrfqwm2369 [place] [id number]. Garima Heraclio MCV (RBC) [Entitic vol] 94.1 fL Critically high 80.0-94.0 [facility] Comment on above: Performed By: #### C BC ####[facility] Uaoueaycgw7761 [place] [address]Dr. Garima Heraclio MONO # 0.7 103/ul Normal 0.3-0.8 [facility] Comment on above: Performed By: #### C BC ####[facility] Wgrnuwydss0705 [place] [address]Dr. Garima Heraclio Monocytes/100 WBC (Bld) 8.6 % Normal 1.7-12.0 [facility] Comment on above: Performed By: #### C BC ####[facility] Qykkckqiph9293 [place] [address]Dr. Garima Pulliam NEUT # 4.9 103/ul Normal 1.4-6.5 [facility] Comment on above: Performed By: #### C BC ####[facility] Anwhvocodc1731 [place] [address]Dr. Garima Pulliam Neutrophils/100 WBC (Bld) 65.1 % Normal 43.0-75.0 [facility] Comment on above: Performed By: #### C BC ####[facility] Cadqxagbbq6373 [place] [id number]. Garima Pulliam Platelet mean volume (Bld) [Entitic vol] 8.5 fL Critically low 9.5-13.5 [facility] Comment on above: Performed By: #### C BC ####[facility] Fxpnwpegma7881 [place] [address]Dr. Garima Pulliam PLT 219 103/ul Normal 150-450 [facility] Comment on above: Performed By: #### C BC ####[facility] Cpdnvazyhl6615 [place] [address]Dr. Garima Pulliam RBC 4.56 106/ul Critically low 4.70-6.10 [facility] Comment on above: Performed By: #### C BC ####[facility] Oxnyjayebu2239 [place] [address]Dr. Garima Pulliam WBC 7.6 103/ul Normal 4.0-11.0 [facility] Comment on above: Performed By: #### C BC ####[facility] Xgaeyjfebh0054 [place] [id number]. Garima Pulliam LACTATE/LACTIC ACIDon 2022 Lactate [Moles/Vol] 1.2 mmol/L Normal 0.4-2.0 [facility] Comment on above: Performed By: #### L ACT ####[facility] Vugqdizsnx2043 [place] [id number]. Garima Pulliam MAGNESIUMon 03-30-2023 Magnesium [Mass/Vol] 1.8 mg/dL Normal 1.8-2.4 [facility] Comment on above: Performed By: #### M G ####[facility] Bstebwdrmm7[address] [place] [address]Dr. Garima Pulliam PROF 14(COMP METB)on 023 Albumin [Mass/Vol] 3.5 g/dL Normal 3.4-5.0 [facility] Comment on above: Performed By: #### C DAVID, CMAANA ROSA ####[facility] Lflmvldbst0398 [place] [address]Dr. Garima Pluliam Albumin/Globulin [Mass ratio] 1.2 {ratio} Normal [facility] Comment on above: Performed By: #### C DAVID, CMAANA ROSA ####[facility] Gtalfwxtwv2291 [place] [address]Dr. Garima Pulliam ALP [Catalytic activity/Vol] 85 U/L Normal 46-116 [facility] Comment on above: Performed By: #### C DAVID, CMAANA ROSA ####[facility] Mpxkzzwnsh[address] [place], [place] [address]Dr. Garima Pulliam ALT [Catalytic activity/Vol] 29 U/L Normal 16-63 [facility] Comment on above: Performed By: #### C DAVID, CMAANA ROSA ####[facility] Bsaayganje6649 [place] [address]Dr. Garima Pulliam Anion gap [Moles/Vol] 8.0 mmol/L Normal [facility] Comment on above: Performed By: #### C DAVID, CMAANA ROSA ####[facility] Wtfylrpppp9713 [place] [address]Dr. Garima Pulliam AST [Catalytic activity/Vol] 18 U/L Normal 15-37 [facility] Comment on above: Performed By: #### C DAVID, CMADM ####[facility] Xkddwngeza0781 [place] [address]Dr. Garima Pulliam Bilirubin [Mass/Vol] 0.4 mg/dL Normal 0.2-1.0 [facility] Comment on above: Performed By: #### C DAVID, CMADM ####[facility] Eyvkesnkoi9981 [place] [address]Dr. Garima Pulliam Calcium [Mass/Vol] 8.8 mg/dL Normal 8.5-10.1 [facility] Comment on above: Performed By: #### C DAVID, NANCY ####[facility] Wzapmfukyz8748 [place] [address]Dr. Chapisrenu Pulliam Chloride [Moles/Vol] 108 mmol/L Critically high 98-107 [facility] Comment on above: Performed By: #### C DAVID, NANCY ####[facility] Kmhrrfniqs4246 [place] [address]Dr. Garima Pulliam CO2 [Moles/Vol] 29.6 mmol/L Normal 21.0-32.0 [facility] Comment on above: Performed By: #### C NANCY HERNANDEZ ####[facility] Frdttlgnnl[address] [place], [place] [address]Dr. Garima Pulliam Creatinine [Mass/Vol] 0.77 mg/dL Normal 0.70-1.30 [facility] Comment on above: Performed By: #### C NANCY HERNANDEZ ####[facility] Noohhtvbcb34[address] [place], [place] [address]Dr. Garima Heraclio EGFR-AF [facility] LUCIAN >60 Normal >=60 [facility] Comment on above: Performed By: #### C NANCY HERNANDEZ ####[facility] Hkiihoctxp[address] [place], [place] [address]Dr. Garima Heraclio EGFR-NON AF [facility] LUCIAN >60 Normal >=60 [facility] Comment on above: Performed By: #### C NANCY HERNANDEZ ####[facility] Gmnjlvfgxc3993 [place] [address]Dr. Garima Pulliam Globulin (S) [Mass/Vol] 2.8 g/dL Normal [facility] Comment on above: Performed By: #### C NANCY HERNANDEZ ####[facility] Qsdkbwneci8723 [place] [address]Dr. Garima Pulliam Glucose [Mass/Vol] 207 mg/dL Critically high 74-106 [facility] Comment on above: Performed By: #### C NANCY HERNANDEZ ####[facility] Pdyujtlrvs022[address] [place], [place] [address]Dr. Garima Pulliam Potassium [Moles/Vol] 4.6 mmol/L Normal 3.5-5.1 [facility] Comment on above: Performed By: #### C DAVID, NANCY ####[facility] Nofvexaglt6023 [place] [address]Dr. Garima Pulliam Protein [Mass/Vol] 6.3 g/dL Critically low 6.4-8.2 [facility] Comment on above: Performed By: #### C DAVID, NANCY ####[facility] Hadkozqmkd0522 [place] [address]Dr. Garima Pulliam Sodium [Moles/Vol] 141 mmol/L Normal 136-145 [facility] Comment on above: Performed By: #### C DAVID, NANCY ####[facility] Xcsdspkcka7410 [place] [address]Dr. Garima Pulliam Urea nitrogen [Mass/Vol] 9.0 mg/dL Normal 7.0-18.0 [facility] Comment on above: Performed By: #### C DAVID, NANCY ####[facility] Hdqmmctxdb9334 [place] [address]Dr. Garima Pulliam Urea nitrogen/Creatinine [Mass ratio] 11.7 mg/mg Normal [facility] Comment on above: Performed By: #### C DAVID, NANCY ####[facility] Rqtertryik9527 [place] [address]Dr. Garima Pulliam XR CHEST 1 Von 03-30-2023 XR CHEST 1 V Normal [facility] BNPon 03-27-2023 Natriuretic peptide B (Bld) [Mass/Vol] 251.0 pg/mL Normal <=900.0 [facility] Comment on above: Performed By: #### C MP, BNP, LIPID ####[facility] Gnqyuzhlpk6899 [place] [address]Dr. Garima Pulliam GLYCOHEMOGLOBIN A1Con 2022 ADA RECOMMENDATION SEE BELOW Normal [facility] Comment on above: Result Comment: ADA RECOMMENDED LIMIT 4.0 - 6.0 ADA THERAPEUTIC TARGET < 7.0 ACTION SUGGESTED > 7.0 Performed By: #### A 1C ####[facility] Znspykataa0053 [place] [address]Dr. Garima Pulliam Glucose [Mass/Vol] 180 mg/dL Normal [facility] Comment on above: Performed By: #### A 1C ####[facility] Ocarcobmbv[address] [place], [place] [address]Dr. Chapisrenu Pulliam HbA1c (Bld) [Mass fraction] 7.9 % Critically high 4.5-6.2 [facility] Comment on above: Performed By: #### A 1C ####[facility] Crlkeiwhei[address] [place], [place] [address]Dr. Garima Pulliam HEMOGRAM AND PLATELon 2022 Hematocrit (Bld) [Volume fraction] 45.7 % Normal 42.0-54.0 [facility] Comment on above: Performed By: #### H H ####[facility] Psrvjcygft[address] [place], [place] [address]Dr. Garima Pulliam Hemoglobin (Bld) [Mass/Vol] 15.1 g/dL Normal 14.0-18.0 [facility] Comment on above: Performed By: #### H H ####[facility] Ilxnumhtbr86[address] [place], [place] [address]Dr. Garima Pulliam MCH (RBC) [Entitic mass] 30.0 pg Normal 25.9-34.0 [facility] Comment on above: Performed By: #### H H ####[facility] Qcmultvtzs[address] [place], [place] [address]Dr. Garima Pulliam MCHC (RBC) [Mass/Vol] 33.0 g/dL Normal 29.9-35.2 [facility] Comment on above: Performed By: #### H H ####[facility] Recsnmvwze[address] [place], [place] [address]Dr. Garima Pulliam MCV (RBC) [Entitic vol] 90.7 fL Normal 80.0-94.0 [facility] Comment on above: Performed By: #### H H ####[facility] Cyscprtsex[address] [place], [place] [address]Dr. Garima Pulliam PLT 222 103/ul Normal 150-450 [facility] Comment on above: Performed By: #### H H ####[facility] Kqdqqoxsiv2463 [place] [id number]. Garima Pulliam RBC 5.04 106/ul Normal 4.70-6.10 [facility] Comment on above: Performed By: #### H H ####[facility] Dmxgeppvyq9247 [place] [address]Dr. Garima Pulliam WBC 8.7 103/ul Normal 4.0-11.0 [facility] Comment on above: Performed By: #### H H ####[facility] Wixvxfewme0611 [place] [id number]. Garima Pulliam LIPID PROFILEon 03-27-2023 CHOL-HDL RATIO NORM SEE BELOW Normal [facility] Comment on above: Result Comment: 3.3 - 4.4 LOW RISK 4.4 - 7.1 AVERAGE RISK 7.1 - 11.0 MODERATE RISK >11.0 HIGH RISK Performed By: #### C MP, BNP, LIPID ####[facility] Zwmsvkuhel3151 [place] [address]Dr. Garima Pulliam Cholesterol [Mass/Vol] 113 mg/dL Normal <=200 [facility] Comment on above: Performed By: #### C MP, BNP, LIPID ####[facility] Nptperlynj7763 [place] [address]Dr. Garima Pulliam Cholesterol in HDL [Mass/Vol] 51 mg/dL Normal 40-60 [facility] Comment on above: Performed By: #### C MP, BNP, LIPID ####[facility] Idqpwxutaa3955 [place] [address]Dr. Garima Pulliam Cholesterol in LDL [Mass/Vol] 49.8 mg/dL Normal [facility] Comment on above: Performed By: #### C MP, BNP, LIPID ####[facility] Niedeugegp5648 [place] [address]Dr. Garima Pulliam Cholesterol.total/Cho lesterol in HDL [Mass ratio] 2.2 {ratio} Normal [facility] Comment on above: Performed By: #### C MP, BNP, LIPID ####[facility] Jvbhnzedcj3256 [place] [address]Dr. Garima Pulliam HDL NORMAL > or = 60 mg/dl - LOW CARDIOVASCULAR RISK <40 mg/dl - HIGH CARDIOVASCULAR RISK Normal [facility] Comment on above: Performed By: #### C MP, BNP, LIPID ####[facility] Cozsyxadab6394 [place] [address]Dr. Garima Pulliam LDL CALC NORMAL SEE BELOW Normal [facility] Comment on above: Result Comment: <100 mg/dl OPTIMAL 100 - 129 mg/dl NEAR OR ABOVE OPTIMAL 130 - 159 mg/dl BORDERLINE HIGH 160 - 189 mg/dl HIGH >190 mg/dl VERY HIGH Performed By: #### C MP, BNP, LIPID ####[facility] Qkkjnqcxlx9510 [place] [address]Dr. Garima Pulliam Triglyceride [Mass/Vol] 61 mg/dL Normal <=150 [facility] Comment on above: Performed By: #### C MP, BNP, LIPID ####[facility] Caahyahcdr5730 [place] [address]Dr. Garima Pulliam VLDL CALC 12.2 mg/dL Normal [facility] Comment on above: Performed By: #### C MP, BNP, LIPID ####[facility] Uhbczqeqba[address] [place] [address]Dr. Garima Pulliam PROF 14(COMP METB)on 023 Albumin [Mass/Vol] 3.5 g/dL Normal 3.4-5.0 [facility] Comment on above: Performed By: #### C MP, BNP, LIPID ####[facility] Qiclvmllhw85[address] [place] [address]Dr. Garima Pulliam Albumin/Globulin [Mass ratio] 1.2 {ratio} Normal [facility] Comment on above: Performed By: #### C MP, BNP, LIPID ####[facility] Rlrdjdqbnp[address] [place] [address]Dr. Garima Pulliam ALP [Catalytic activity/Vol] 82 U/L Normal 46-116 [facility] Comment on above: Performed By: #### C MP, BNP, LIPID ####[facility] Sbdhteeeit[address] [place] [address]Dr. Garima Pulliam ALT [Catalytic activity/Vol] 33 U/L Normal 16-63 [facility] Comment on above: Performed By: #### C MP, BNP, LIPID ####[facility] Vqfxwcyufg67[address] [place] [address]Dr. Garima Pulliam Anion gap [Moles/Vol] 9.9 mmol/L Normal [facility] Comment on above: Performed By: #### C MP, BNP, LIPID ####[facility] Qdefskzljf7[address] [place] [address]Dr. Garima Pulliam AST [Catalytic activity/Vol] 24 U/L Normal 15-37 [facility] Comment on above: Performed By: #### C MP, BNP, LIPID ####[facility] Mksrygxbjq6[address] [place] [address]Dr. Garima Pulliam Bilirubin [Mass/Vol] 0.6 mg/dL Normal 0.2-1.0 [facility] Comment on above: Performed By: #### C MP, BNP, LIPID ####[facility] Xgofselvos[address] [place] [address]Dr. Garima Pulliam Calcium [Mass/Vol] 9.2 mg/dL Normal 8.5-10.1 [facility] Comment on above: Performed By: #### C MP, BNP, LIPID ####[facility] Ejuspjsjzi[address] [place] [address]Dr. Garima Pulliam Chloride [Moles/Vol] 106 mmol/L Normal 98-107 [facility] Comment on above: Performed By: #### C MP, BNP, LIPID ####[facility] Vdwcvklrpa19[address] [place] [address]Dr. Garima Pulliam CO2 [Moles/Vol] 32.3 mmol/L Critically high 21.0-32.0 [facility] Comment on above: Performed By: #### C MP, BNP, LIPID ####[facility] Zbaiohmwop2[address] [place] [address]Dr. Garima Pulliam Creatinine [Mass/Vol] 0.70 mg/dL Normal 0.70-1.30 [facility] Comment on above: Performed By: #### C MP, BNP, LIPID ####[facility] Jqnugiqbfk9086 [place] [id number]. Garima Pulliam EGFR-AF [facility] LUCIAN >60 Normal >=60 [facility] Comment on above: Performed By: #### C MP, BNP, LIPID ####[facility] Usiearscoq8299 [place] [id number]. Garima Pulliam EGFR-NON AF [facility] LUCIAN >60 Normal >=60 [facility] Comment on above: Performed By: #### C MP, BNP, LIPID ####[facility] Jybetuswvi0630 [place] [address]Dr. Garima Pulliam Globulin (S) [Mass/Vol] 2.9 g/dL Normal [facility] Comment on above: Performed By: #### C MP, BNP, LIPID ####[facility] Qilfukyqjm86[address] [place] [address]Dr. Garima Pulliam Glucose [Mass/Vol] 111 mg/dL Critically high 74-106 [facility] Comment on above: Performed By: #### C MP, BNP, LIPID ####[facility] Nfcypoqoue5107 [place] [address]Dr. Garima Pulliam Potassium [Moles/Vol] 4.2 mmol/L Normal 3.5-5.1 [facility] Comment on above: Performed By: #### C MP, BNP, LIPID ####[facility] Pzmdbwstwg94[address] [place] [address]Dr. Garima Pulliam Protein [Mass/Vol] 6.4 g/dL Normal 6.4-8.2 [facility] Comment on above: Performed By: #### C MP, BNP, LIPID ####[facility] Sqrbzrayln7543 [place] [address]Dr. Garima Pulliam Sodium [Moles/Vol] 144 mmol/L Normal 136-145 [facility] Comment on above: Performed By: #### C MP, BNP, LIPID ####[facility] Obblipxvzy9654 [place] [address]Dr. Garima Pulliam Urea nitrogen [Mass/Vol] 7.0 mg/dL Normal 7.0-18.0 [facility] Comment on above: Performed By: #### C MP, BNP, LIPID ####[facility] Fpdlrrvtrj[address] [place], [place] [address]Dr. Garima Pulliam Urea nitrogen/Creatinine [Mass ratio] 10.0 mg/mg Normal [facility] Comment on above: Performed By: #### C MP, BNP, LIPID ####[facility] Qqvlzeiajg7[address] [place], [place] [address]Dr. Garima Pulliam BNPon 03-22-2023 Natriuretic peptide B (Bld) [Mass/Vol] 103.0 pg/mL Normal <=900.0 [facility] Comment on above: Performed By: #### B LAUNDRY TECH, BMP ####[facility] Mfuatrssoz[address] [place], [place] [address]Dr. Graima Pulliam CBC AUTO DIFFon 03-22-2023 BASO # 0.0 103/ul Normal 0.0-0.1 [facility] Comment on above: Performed By: #### C BC ####[facility] Coajcelirt4[address] [place], [place] [address]Dr. Garima Heraclio Basophils/100 WBC (Bld) 0.3 % Normal 0.2-2.0 [facility] Comment on above: Performed By: #### C BC ####[facility] Itqzjmsgoy[address] [place], [place] [address]Dr. Garima Pulliam EO # 0.2 103/ul Normal 0.0-0.7 [facility] Comment on above: Performed By: #### C BC ####[facility] Jyccwlxhdd69[address] [place], [place] [address]Dr. Garima Pulliam Eosinophils/100 WBC (Bld) 2.2 % Normal 0.9-7.0 [facility] Comment on above: Performed By: #### C BC ####[facility] Fxhssubeci24[address] [place], [place] [address]Dr. Garima Pulliam Erythrocyte distribution width (RBC) [Ratio] 13.2 % Normal 11.0-15.0 [facility] Comment on above: Performed By: #### C BC ####[facility] Diqclycwjo1167 [place] [id number]. Garima Pulliam Hematocrit (Bld) [Volume fraction] 43.4 % Normal 42.0-54.0 [facility] Comment on above: Performed By: #### C BC ####[facility] Jhjkivctpm6138 [place] [address]Dr. Garima Heraclio Hemoglobin (Bld) [Mass/Vol] 14.3 g/dL Normal 14.0-18.0 [facility] Comment on above: Performed By: #### C BC ####[facility] Iwhhbgnhcz6652 [place] [address]Dr. Garima Pulliam IG # 0.02 10e3/ul Normal 0.00-0.03 [facility] Comment on above: Performed By: #### C BC ####[facility] Kahslkdpwi8046 [place] [address]Dr. Garima Pulliam IG % 0.3 % Normal 0.0-0.5 [facility] Comment on above: Performed By: #### C BC ####[facility] Jegvczlkgh3809 [place] [address]Dr. Chapisrenu Pulliam LYMPH # 2.0 103/ul Normal 1.2-3.8 [facility] Comment on above: Performed By: #### C BC ####[facility] Ahmgtscuor7082 [place] [address]Dr. Chapisrenu Pulliam Lymphocytes/100 WBC (Bld) 24.8 % Normal 20.5-60.0 [facility] Comment on above: Performed By: #### C BC ####[facility] Hfnkezesjh7380 [place] [address]Dr. Chapisrenu Pulliam MANUAL DIFF REQ NO Normal [facility] Comment on above: Performed By: #### C BC ####[facility] Xqxiapqgeg5978 [place] [address]Dr. Garima Heraclio MCH (RBC) [Entitic mass] 30.0 pg Normal 25.9-34.0 [facility] Comment on above: Performed By: #### C BC ####[facility] Mxmuqthysf[address] [place], [place] [address]Dr. Garima Pulliam MCHC (RBC) [Mass/Vol] 32.9 g/dL Normal 29.9-35.2 [facility] Comment on above: Performed By: #### C BC ####[facility] Sxwqyaatze8520 [place] [id number]. Garima Pulliam MCV (RBC) [Entitic vol] 91.0 fL Normal 80.0-94.0 [facility] Comment on above: Performed By: #### C BC ####[facility] Wwxkqlxvww1865 [place] [id number]. Garima Heraclio MONO # 0.8 103/ul Normal 0.3-0.8 [facility] Comment on above: Performed By: #### C BC ####[facility] Tkaxvjbwym3238 [place] [address]Dr. Chapisrenu Pulliam Monocytes/100 WBC (Bld) 9.7 % Normal 1.7-12.0 [facility] Comment on above: Performed By: #### C BC ####[facility] Geitnosirw1245 [place] [address]Dr. Garima Pulliam NEUT # 4.9 103/ul Normal 1.4-6.5 [facility] Comment on above: Performed By: #### C BC ####[facility] Fsuqhdtwrg4173 [place] [id number]. Garima Heraclio Neutrophils/100 WBC (Bld) 62.7 % Normal 43.0-75.0 [facility] Comment on above: Performed By: #### C BC ####[facility] Shrxqcqqvh0023 [place] [id number]. Garima Heraclio Platelet mean volume (Bld) [Entitic vol] 8.8 fL Critically low 9.5-13.5 [facility] Comment on above: Performed By: #### C BC ####[facility] Ahbuhoanqi9427 [place] [id number]. Garima Heraclio PLT 198 103/ul Normal 150-450 [facility] Comment on above: Performed By: #### C BC ####[facility] Yntfwndkqn8253 [place] [id number]. Garima Heraclio RBC 4.77 106/ul Normal 4.70-6.10 [facility] Comment on above: Performed By: #### C BC ####[facility] Mfxdwrmtdu0500 [place] [id number]. Garima Heraclio WBC 7.9 103/ul Normal 4.0-11.0 [facility] Comment on above: Performed By: #### C BC ####[facility] Qonzhvvcfe5124 [place] [id number]. Garima Heraclio D-DIMERon 03-22-2023 D-DIMER 0.85 mg/L FEU Critically high <=0.59 [facility] Comment on above: Performed By: #### D DIM ####[facility] Zyjpfyjpsv5171 [place] [address]Dr. Garima Pulliam D-DIMER COMMENTS SEE BELOW Normal [facility] Comment on above: Result Comment: Incr [...] Performed By: #### D DIM ####[facility] Uoyovfnvmo37[address] [place], [place] [address]Dr. Garima Pulliam PROF CHEM 8 (BAS METB)on Anion gap [Moles/Vol] 6.9 mmol/L Normal [facility] Comment on above: Performed By: #### B LAUNDRY TECH, BMP ####[facility] Gvdpnmzyvd4778 [place] [address]Dr. Garima Pulliam Calcium [Mass/Vol] 8.9 mg/dL Normal 8.5-10.1 [facility] Comment on above: Performed By: #### B LAUNDRY TECH, BMP ####[facility] Sfoqfyjtvo8494 [place] [address]Dr. Garima Pulliam Chloride [Moles/Vol] 101 mmol/L Normal 98-107 [facility] Comment on above: Performed By: #### B LAUNDRY TECH, BMP ####[facility] Vycvnouzkd86[address] [place], [place] [address]Dr. Chapisrenu Heraclio CO2 [Moles/Vol] 30.7 mmol/L Normal 21.0-32.0 [facility] Comment on above: Performed By: #### B LAUNDRY TECH, BMP ####[facility] Nrrdvebore[address] [place], [place] [address]Dr. Garima Pulliam Creatinine [Mass/Vol] 0.82 mg/dL Normal 0.70-1.30 [facility] Comment on above: Performed By: #### B LAUNDRY TECH, BMP ####[facility] Latykqgjyw8687[address] [place], [place] [address]Dr. Garima Pulliam EGFR-AF [facility] LUCIAN >60 Normal >=60 [facility] Comment on above: Performed By: #### B LAUNDRY TECH, BMP ####[facility] Ffcuseherp3823[address] [place], [place] [address]Dr. Chapisrenu Heraclio EGFR-NON AF [facility] LUCIAN >60 Normal >=60 [facility] Comment on above: Performed By: #### B LAUNDRY TECH, BMP ####[facility] Dnsjkmactr817[address] [place], [place] [address]Dr. Garima Pulliam Glucose [Mass/Vol] 339 mg/dL Critically high 74-106 [facility] Comment on above: Performed By: #### B LAUNDRY TECH, BMP ####[facility] Ypfalxafif716[address] [place], [place] [address]Dr. Garima Pulliam Potassium [Moles/Vol] 3.6 mmol/L Normal 3.5-5.1 [facility] Comment on above: Performed By: #### B LAUNDRY TECH, BMP ####[facility] Nsfyfwmtcb86[address] [place], [place] [address]Dr. Garima Pulliam Sodium [Moles/Vol] 135 mmol/L Critically low 136-145 [facility] Comment on above: Performed By: #### B LAUNDRY TECH, BMP ####[facility] Urkljfsxyr6828[address] [place], [place] [address]Dr. Garima Pulliam Urea nitrogen [Mass/Vol] 11.0 mg/dL Normal 7.0-18.0 [facility] Comment on above: Performed By: #### B LAUNDRY TECH, BMP ####[facility] Kbvdioifhs6975[address] [place], [place] [address]Dr. Garima Pulliam Urea nitrogen/Creatinine [Mass ratio] 13.4 mg/mg Normal [facility] Comment on above: Performed By: #### B LAUNDRY TECH, BMP ####[facility] Flycdigrbl0512[address] [place], [place] [address]Dr. Garima Pulliam US VERONICA DOP LEG BILon 023 US VERONICA DOP LEG BENOIT Normal [facility] BNPon 03-18-2023 Natriuretic peptide B (Bld) [Mass/Vol] 226.0 pg/mL Normal <=900.0 [facility] Comment on above: Performed By: #### B LAUNDRY TECH, BMP ####[facility] Ladbqktkzs84[address] [place], [place] [address]Dr. Garima Pulliam CBC AUTO DIFFon 03-18-2023 BASO # 0.0 103/ul Normal 0.0-0.1 [facility] Comment on above: Performed By: #### C BC ####[facility] Jafuskkkxn66[address] [place], [place] [address]Dr. Garima Heraclio Basophils/100 WBC (Bld) 0.2 % Normal 0.2-2.0 [facility] Comment on above: Performed By: #### C BC ####[facility] Zhphwywuie4[address] [place], [place] [address]Dr. Garima Pulliam EO # 0.3 103/ul Normal 0.0-0.7 [facility] Comment on above: Performed By: #### C BC ####[facility] Hjahqkilta7[address] [place], [place] [address]Dr. Garima Heraclio Eosinophils/100 WBC (Bld) 2.5 % Normal 0.9-7.0 [facility] Comment on above: Performed By: #### C BC ####[facility] Cvashcceim7[address] [place], [place] [address]Dr. Garima Heraclio Erythrocyte distribution width (RBC) [Ratio] 13.2 % Normal 11.0-15.0 [facility] Comment on above: Performed By: #### C BC ####[facility] Hwzloygsyq2413 [place] [address]DrAdalberto Pulliam Hematocrit (Bld) [Volume fraction] 45.8 % Normal 42.0-54.0 [facility] Comment on above: Performed By: #### C BC ####[facility] Lixqcbjnzb3865 [place] [address]DrAdalberto Pulliam Hemoglobin (Bld) [Mass/Vol] 15.3 g/dL Normal 14.0-18.0 [facility] Comment on above: Performed By: #### C BC ####[facility] Gyrofdhhuc[address] [place], [place] [address]DrAdalberto Pulliam IG # 0.02 10e3/ul Normal 0.00-0.03 [facility] Comment on above: Performed By: #### C BC ####[facility] Piugojwuqu[address] [place], [place] [address]DrAdalberto Pulliam IG % 0.2 % Normal 0.0-0.5 [facility] Comment on above: Performed By: #### C BC ####[facility] Ulqjrzvyya[address] [place], [place] [address]DrAdalberto Pulliam LYMPH # 1.8 103/ul Normal 1.2-3.8 [facility] Comment on above: Performed By: #### C BC ####[facility] Zrvrjfqhxy15[address] [place], [place] [address]DrAdalberto Pulliam Lymphocytes/100 WBC (Bld) 18.3 % Critically low 20.5-60.0 [facility] Comment on above: Performed By: #### C BC ####[facility] Kvcsxbtnme7035[address] [place], [place] [address]DrAdalberto Pulliam MANUAL DIFF REQ NO Normal [facility] Comment on above: Performed By: #### C BC ####[facility] Uqxfetikzd5390 [place] [address]DrAdalberto Pulliam MCH (RBC) [Entitic mass] 30.5 pg Normal 25.9-34.0 [facility] Comment on above: Performed By: #### C BC ####[facility] Olkxzjjifn7408 [place] [address]DrAdalberto Pulliam MCHC (RBC) [Mass/Vol] 33.4 g/dL Normal 29.9-35.2 [facility] Comment on above: Performed By: #### C BC ####[facility] Rfevzwcyca1071 [place] [address]DrAdalberto Pulliam MCV (RBC) [Entitic vol] 91.2 fL Normal 80.0-94.0 [facility] Comment on above: Performed By: #### C BC ####[facility] Wwnhsnerql8813[address] [place], [place] [address]DrAdalberto Pulliam MONO # 0.8 103/ul Normal 0.3-0.8 [facility] Comment on above: Performed By: #### C BC ####[facility] Fefcbsiocm532[address] [place], [place] [address]DrAdalberto Pulliam Monocytes/100 WBC (Bld) 7.6 % Normal 1.7-12.0 [facility] Comment on above: Performed By: #### C BC ####[facility] Wxonnjjdmu634[address] [place], [place] [address]DrAdalberto Pulliam NEUT # 7.0 103/ul Critically high 1.4-6.5 [facility] Comment on above: Performed By: #### C BC ####[facility] Mlbfgkaipt95[address] [place], [place] [address]DrAdalberto Pulliam Neutrophils/100 WBC (Bld) 71.2 % Normal 43.0-75.0 [facility] Comment on above: Performed By: #### C BC ####[facility] Jketqkdlxs354[address] [place], [place] [address]DrAdalberto Pulliam Platelet mean volume (Bld) [Entitic vol] 8.9 fL Critically low 9.5-13.5 [facility] Comment on above: Performed By: #### C BC ####[facility] Debzhycgni29[address] [place], [place] [address]DrAdalberto Pulliam PLT 217 103/ul Normal 150-450 [facility] Comment on above: Performed By: #### C BC ####[facility] Cfepwyxiag0288 [place] [address]Dr. Garima Heraclio RBC 5.02 106/ul Normal 4.70-6.10 [facility] Comment on above: Performed By: #### C BC ####[facility] Vsbjguzhkr[address] [place], [place] [address]Dr. Garima Pulliam WBC 9.8 103/ul Normal 4.0-11.0 [facility] Comment on above: Performed By: #### C BC ####[facility] Lcqbemzzuv03[address] [place], [place] [address]Dr. Garima Heraclio CRPon 03-18-2023 CRP 0.1 mg/dL Normal <=1.0 [facility] Comment on above: Performed By: #### C RP ####[facility] Vyskfkrxkz05[address] [place], [place] [address]Dr. Garima Heraclio PROF CHEM 8 (BAS METB)on Anion gap [Moles/Vol] 10.4 mmol/L Normal [facility] Comment on above: Performed By: #### B LAUNDRY TECH, BMP ####[facility] Dwqrghrtao[address] [place], [place] [address]Dr. Garima Heraclio Calcium [Mass/Vol] 8.8 mg/dL Normal 8.5-10.1 [facility] Comment on above: Performed By: #### B LAUNDRY TECH, BMP ####[facility] Bakgrbelrs[address] [place], [place] [address]Dr. Garima Heraclio Chloride [Moles/Vol] 97 mmol/L Critically low 98-107 [facility] Comment on above: Performed By: #### B LAUNDRY TECH, BMP ####[facility] Lxtzwrvgaw16[address] [place], [place] [address]Dr. Garima Pulliam CO2 [Moles/Vol] 31.2 mmol/L Normal 21.0-32.0 [facility] Comment on above: Performed By: #### B LAUNDRY TECH, BMP ####[facility] Ubhfeqhkrv68[address] [place], [place] [address]Dr. Garima Pulliam Creatinine [Mass/Vol] 0.91 mg/dL Normal 0.70-1.30 [facility] Comment on above: Performed By: #### B LAUNDRY TECH, BMP ####[facility] Lumqbtjvba3502 [place] [address]Dr. Garima Pulliam EGFR-AF ST LUCIAN >60 Normal >=60 [facility] Comment on above: Performed By: #### B LAUNDRY TECH, BMP ####[facility] Xhmvcmiipz2901 [place] [id number]. Garima Pulliam EGFR-NON AF [facility] LUCIAN >60 Normal >=60 [facility] Comment on above: Performed By: #### B LAUNDRY TECH, BMP ####[facility] Uvjzddzfqm6138 [place] [address]Dr. Garima Pulliam Glucose [Mass/Vol] 315 mg/dL Critically high 74-106 [facility] Comment on above: Performed By: #### B LAUNDRY TECH, BMP ####[facility] Jmprrglihh5763 [place] [address]Dr. Garima Pulliam Potassium [Moles/Vol] 3.6 mmol/L Normal 3.5-5.1 [facility] Comment on above: Performed By: #### B LAUNDRY TECH, BMP ####[facility] Pbsyvsaulp6742 [place] [address]Dr. Garima Pulliam Sodium [Moles/Vol] 135 mmol/L Critically low 136-145 [facility] Comment on above: Performed By: #### B LAUNDRY TECH, BMP ####[facility] Rqndwjyzvn4513 [place] [address]Dr. Garima Pulliam Urea nitrogen [Mass/Vol] 7.0 mg/dL Normal 7.0-18.0 [facility] Comment on above: Performed By: #### B LAUNDRY TECH, BMP ####[facility] Axxqcjietp2414 [place] [address]Dr. Garima Pulliam Urea nitrogen/Creatinine [Mass ratio] 7.7 mg/mg Normal [facility] Comment on above: Performed By: #### B LAUNDRY TECH, BMP ####[facility] Eixsznynjs6076 [place] [address]Dr. Garima Pulliam SED RATE WESTERGRENon 2022 SED RATE 8 mm/hr Normal <=20 [facility] Comment on above: Performed By: #### S EDR ####[facility] Jbvnpzkvxk78[address] [place], [place] [address]Dr. Garima Pulliam BNPon 03-16-2023 Natriuretic peptide B (Bld) [Mass/Vol] 241.0 pg/mL Normal <=900.0 [facility] Comment on above: Performed By: #### B LAUNDRY TECH, BMP, HSTROPN ####[facility] Rmtpefwfye[address] [place], [place] [address]Dr. Garima Heraclio CBC AUTO DIFFon 03-16-2023 BASO # 0.0 103/ul Normal 0.0-0.1 [facility] Comment on above: Performed By: #### C BC ####[facility] Uphlwqzphe8026[address] [place], [place] [address]Dr. Chapisrenu Pulliam Basophils/100 WBC (Bld) 0.2 % Normal 0.2-2.0 [facility] Comment on above: Performed By: #### C BC ####[facility] Braarqdslq8618[address] [place], [place] [address]Dr. Garima Pulliam EO # 0.2 103/ul Normal 0.0-0.7 [facility] Comment on above: Performed By: #### C BC ####[facility] Bssygylovp30[address] [place], [place] [address]Dr. Chapisrenu Pulliam Eosinophils/100 WBC (Bld) 2.7 % Normal 0.9-7.0 [facility] Comment on above: Performed By: #### C BC ####[facility] Fybxnygtsr[address] [place], [place] [address]Dr. Garima Pulliam Erythrocyte distribution width (RBC) [Ratio] 13.1 % Normal 11.0-15.0 [facility] Comment on above: Performed By: #### C BC ####[facility] Pcphduqxti257[address] [place], [place] [address]Dr. Garima Pulliam Hematocrit (Bld) [Volume fraction] 41.8 % Critically low 42.0-54.0 [facility] Comment on above: Performed By: #### C BC ####[facility] Khpgqizusz0862 [place] [address]Dr. Garima Pulliam Hemoglobin (Bld) [Mass/Vol] 14.0 g/dL Normal 14.0-18.0 [facility] Comment on above: Performed By: #### C BC ####[facility] Nzzvonlrrw9934 [place] [address]Dr. Garima Pulliam IG # 0.03 10e3/ul Normal 0.00-0.03 [facility] Comment on above: Performed By: #### C BC ####[facility] Tkyswnrtna8579 [place] [address]Dr. Garima Pulliam IG % 0.3 % Normal 0.0-0.5 [facility] Comment on above: Performed By: #### C BC ####[facility] Prrtefetyc[address] [place], [place] [address]Dr. Chapisrenu Pulliam LYMPH # 2.1 103/ul Normal 1.2-3.8 [facility] Comment on above: Performed By: #### C BC ####[facility] Etfwpmugkl4[address] [place], [place] [address]Dr. Chapisrenu Pulliam Lymphocytes/100 WBC (Bld) 24.2 % Normal 20.5-60.0 [facility] Comment on above: Performed By: #### C BC ####[facility] Fhtmryhvvs2864 [place] [address]Dr. Garima Pulliam MANUAL DIFF REQ NO Normal [facility] Comment on above: Performed By: #### C BC ####[facility] Dvhttyslpn5139 [place] [address]Dr. Garima Pulliam MCH (RBC) [Entitic mass] 30.2 pg Normal 25.9-34.0 [facility] Comment on above: Performed By: #### C BC ####[facility] Opqifgpadb0160 [place] [address]Dr. Garima Pulliam MCHC (RBC) [Mass/Vol] 33.5 g/dL Normal 29.9-35.2 [facility] Comment on above: Performed By: #### C BC ####[facility] Ilhilfjbkf5642 [place] [id number]. Garima Pulliam MCV (RBC) [Entitic vol] 90.1 fL Normal 80.0-94.0 [facility] Comment on above: Performed By: #### C BC ####[facility] Qjodxhqvxa0595 [place] [id number]. Garima Pulliam MONO # 0.6 103/ul Normal 0.3-0.8 [facility] Comment on above: Performed By: #### C BC ####[facility] Zqditahrer2878 [place] [address]Dr. Garima Heraclio Monocytes/100 WBC (Bld) 7.4 % Normal 1.7-12.0 [facility] Comment on above: Performed By: #### C BC ####[facility] Ebbqxmmbyc[address] [place], [place] [address]Dr. Garima Pulliam NEUT # 5.6 103/ul Normal 1.4-6.5 [facility] Comment on above: Performed By: #### C BC ####[facility] Fktipqosld195695 [address] [place], [place] [address]Dr. Garima Heraclio Neutrophils/100 WBC (Bld) 65.2 % Normal 43.0-75.0 [facility] Comment on above: Performed By: #### C BC ####[facility] Nvgofbwooq[address] [place] [id number]. Garima Heraclio Platelet mean volume (Bld) [Entitic vol] 8.7 fL Critically low 9.5-13.5 [facility] Comment on above: Performed By: #### C BC ####[facility] Whiq[address]wl[address] [place], [place] [id number]. Garima Heraclio PLT 195 103/ul Normal 150-450 [facility] Comment on above: Performed By: #### C BC ####[facility] Oitjpimjkw7[address] [place] [id number]. Garima Pulliam RBC 4.64 106/ul Critically low 4.70-6.10 [facility] Comment on above: Performed By: #### C BC ####[facility] Buhbnalsei[address] [place] [address]Dr. Garima Pulliam WBC 8.6 103/ul Normal 4.0-11.0 [facility] Comment on above: Performed By: #### C BC ####[facility] Gboycoluhu[address] [place] [address]Dr. Garima Pulliam PROF CHEM 8 (BAS METB)on Anion gap [Moles/Vol] 6.7 mmol/L Normal [facility] Comment on above: Performed By: #### B LAUNDRY TECH, BMP, HSTROPN ####[facility] Ohircczxlw[address] [place] [address]Dr. Garima Pulliam Calcium [Mass/Vol] 8.8 mg/dL Normal 8.5-10.1 [facility] Comment on above: Performed By: #### B LAUNDRY TECH, BMP, HSTROPN ####[facility] C[address]xfzavz[address] [place], [place] [address]Dr. Garima Pulliam Chloride [Moles/Vol] 106 mmol/L Normal 98-107 [facility] Comment on above: Performed By: #### B LAUNDRY TECH, BMP, HSTROPN ####[facility] Xjgujiofoz[address] [place], [place] [address]Dr. Garima Pulliam CO2 [Moles/Vol] 31.4 mmol/L Normal 21.0-32.0 [facility] Comment on above: Performed By: #### B LAUNDRY TECH, BMP, HSTROPN ####[facility] Dcasnggacn[address] [place], [place] [address]Dr. Garima Pulliam Creatinine [Mass/Vol] 0.75 mg/dL Normal 0.70-1.30 [facility] Comment on above: Performed By: #### B LAUNDRY TECH, BMP, HSTROPN ####[facility] Tsbestlgjq[address] [place] [address]Dr. Garima Pulliam EGFR-AF [facility] LUCIAN >60 Normal >=60 [facility] Comment on above: Performed By: #### B LAUNDRY TECH, BMP, HSTROPN ####[facility] Dpxbxercgj6776 [place] [address]Dr. Gariam Pulliam EGFR-NON AF [facility] LUCIAN >60 Normal >=60 [facility] Comment on above: Performed By: #### B LAUNDRY TECH, BMP, HSTROPN ####[facility] Lkdjoflxzi4062 [place] [address]Dr. Garima Pulliam Glucose [Mass/Vol] 161 mg/dL Critically high 74-106 [facility] Comment on above: Performed By: #### B LAUNDRY TECH, BMP, HSTROPN ####[facility] Sogttkbimc[address] [place] [address]Dr. Garima Pulliam Potassium [Moles/Vol] 4.1 mmol/L Normal 3.5-5.1 [facility] Comment on above: Performed By: #### B LAUNDRY TECH, BMP, HSTROPN ####[facility] Erlzzsapxd9565 [place] [address]Dr. Garima Pulliam Sodium [Moles/Vol] 140 mmol/L Normal 136-145 [facility] Comment on above: Performed By: #### B LAUNDRY TECH, BMP, HSTROPN ####[facility] Qvpjqdykjk4181 [place] [address]Dr. Garima Pulliam Urea nitrogen [Mass/Vol] 7.0 mg/dL Normal 7.0-18.0 [facility] Comment on above: Performed By: #### B LAUNDRY TECH, BMP, HSTROPN ####[facility] Tjawbrrfdl[address] [place] [address]Dr. Garima Pulliam Urea nitrogen/Creatinine [Mass ratio] 9.3 mg/mg Normal [facility] Comment on above: Performed By: #### B LAUNDRY TECH, BMP, HSTROPN ####[facility] Ucfqhyaqbq[address] [place] [address]Dr. Garima Pulliam TROPONIN, HIGH SENSITIVITYon 03-16-2023 HSTROP 9.7 pg/mL Normal 4.0-76.1 [facility] Comment on above: Result Comment: CUT- OFF POINTS HAVE BEEN ESTABLISHED BASED ON THE FOURTH UNIVERSAL DEFINITIONS OF MYOCARDIALINFARCTION. THE UPPER REFERENCE LIMIT (URL) OF TROPONIN, DEFINED THE 99TH PERCENTILE OFcTnI DISTRIBUTION IN A REFERENCE POPULATION, HAS BEEN CONFIRMED THE DECISION THRESHOLDFOR PR DIAGNOSIS. Performed By: #### B LAUNDRY TECH, BMP, HSTROPN ####[facility] Zypmyvjnhi[address] [place] [address]Dr. Garima Pulliam XR CHEST 1 Von 03-16-2023 XR CHEST 1 V Normal [facility] BNPon 03-06-2023 Natriuretic peptide B (Bld) [Mass/Vol] 111.0 pg/mL Normal <=900.0 [facility] Comment on above: Performed By: #### C MP, BNP, CK ####[facility] Uwcqgjigwu7220 [place] [address]Dr. Chapisrenu Pulliam CBC AUTO DIFFon 03-06-2023 BASO # 0.0 103/ul Normal 0.0-0.1 [facility] Comment on above: Performed By: #### C BC ####[facility] Qootiuudvn[address] [place], [place] [address]Dr. Garima Pulliam Basophils/100 WBC (Bld) 0.2 % Normal 0.2-2.0 [facility] Comment on above: Performed By: #### C BC ####[facility] Xisogavwyg67[address] [place], [place] [address]Dr. Garima Pulliam EO # 0.3 103/ul Normal 0.0-0.7 [facility] Comment on above: Performed By: #### C BC ####[facility] Opbetahjyx9[address] [place], [place] [address]Dr. Garima Pulliam Eosinophils/100 WBC (Bld) 3.5 % Normal 0.9-7.0 [facility] Comment on above: Performed By: #### C BC ####[facility] Nqldriixka378[address] [place], [place] [address]Dr. Garima Pulliam Erythrocyte distribution width (RBC) [Ratio] 13.3 % Normal 11.0-15.0 [facility] Comment on above: Performed By: #### C BC ####[facility] Yhqffwvylw25[address] [place], [place] [address]Dr. Garima Pulliam Hematocrit (Bld) [Volume fraction] 43.7 % Normal 42.0-54.0 [facility] Comment on above: Performed By: #### C BC ####[facility] Xjiacziwni54[address] [place] [address]Dr. Garima Pulliam Hemoglobin (Bld) [Mass/Vol] 14.7 g/dL Normal 14.0-18.0 [facility] Comment on above: Performed By: #### C BC ####[facility] Yiygbrxokt9650 [place] [address]Dr. Chapisrenu Heraclio IG # 0.03 10e3/ul Normal 0.00-0.03 [facility] Comment on above: Performed By: #### C BC ####[facility] Anvlhpkblv65[address] [place], [place] [address]Dr. Garima Pulliam IG % 0.4 % Normal 0.0-0.5 [facility] Comment on above: Performed By: #### C BC ####[facility] Rohnekunwo[address] [place], [place] [address]Dr. Garima Pulliam LYMPH # 2.0 103/ul Normal 1.2-3.8 [facility] Comment on above: Performed By: #### C BC ####[facility] Jmwgctchxr9[address] [place], [place] [address]DrAdalberto Pulliam Lymphocytes/100 WBC (Bld) 23.7 % Normal 20.5-60.0 [facility] Comment on above: Performed By: #### C BC ####[facility] Dbatxupinr8918 [place] [address]Dr. Garima Pulliam MANUAL DIFF REQ NO Normal [facility] Comment on above: Performed By: #### C BC ####[facility] Azrhiopfve0952 [place] [id number] Pulliam MCH (RBC) [Entitic mass] 30.1 pg Normal 25.9-34.0 [facility] Comment on above: Performed By: #### C BC ####[facility] Yzeluihgid2271 [place] [id number]. Garima Pulliam MCHC (RBC) [Mass/Vol] 33.6 g/dL Normal 29.9-35.2 [facility] Comment on above: Performed By: #### C BC ####[facility] Lffxowvoef[address] [place] [address]Dr. Garima Heraclio MCV (RBC) [Entitic vol] 89.4 fL Normal 80.0-94.0 [facility] Comment on above: Performed By: #### C BC ####[facility] Hcpozsqjym7086 [place] [address]Dr. Garima Pulliam MONO # 0.8 103/ul Normal 0.3-0.8 [facility] Comment on above: Performed By: #### C BC ####[facility] Xchicvcesx5917 [place] [address]Dr. Garima Pulliam Monocytes/100 WBC (Bld) 9.0 % Normal 1.7-12.0 [facility] Comment on above: Performed By: #### C BC ####[facility] Nkvpweqpst[address] [place], [place] [address]Dr. Garima Pulliam NEUT # 5.4 103/ul Normal 1.4-6.5 [facility] Comment on above: Performed By: #### C BC ####[facility] Aiwnqozcgd95[address] [place], [place] [address]Dr. Garima Pulliam Neutrophils/100 WBC (Bld) 63.2 % Normal 43.0-75.0 [facility] Comment on above: Performed By: #### C BC ####[facility] Afvhbwkmcj68[address] [place], [place] [address]Dr. Garima Pulliam Platelet mean volume (Bld) [Entitic vol] 9.0 fL Critically low 9.5-13.5 [facility] Comment on above: Performed By: #### C BC ####[facility] Ulttsmjmph[address] [place], [place] [address]Dr. Garima Pulliam PLT 218 103/ul Normal 150-450 [facility] Comment on above: Performed By: #### C BC ####[facility] Wpaqaopazb3025 [place] [id number]. Garima Pulliam RBC 4.89 106/ul Normal 4.70-6.10 [facility] Comment on above: Performed By: #### C BC ####[facility] Ygqyhzskag2918 [place] [address]Dr. Garima Pulliam WBC 8.5 103/ul Normal 4.0-11.0 [facility] Comment on above: Performed By: #### C BC ####[facility] Tzgloosdhw69[address] [place] [address]Dr. Garima Pulliam CPKon 03-06-2023 CK [Catalytic activity/Vol] 191 U/L Normal 39-308 [facility] Comment on above: Performed By: #### C MP, BNP, CK ####[facility] Yfikcvamqw2372 [place] [address]Dr. Garima Pulliam PROF 14(COMP METB)on 023 Albumin [Mass/Vol] 3.6 g/dL Normal 3.4-5.0 [facility] Comment on above: Performed By: #### C MP, BNP, CK ####[facility] Nrkcruvezq9768 [place] [address]Dr. Garima Pulliam Albumin/Globulin [Mass ratio] 1.2 {ratio} Normal [facility] Comment on above: Performed By: #### C MP, BNP, CK ####[facility] Qypudqumeu4057 [place] [address]Dr. Garima Pulliam ALP [Catalytic activity/Vol] 91 U/L Normal 46-116 [facility] Comment on above: Performed By: #### C MP, BNP, CK ####[facility] Uokpfztahu2351 [place] [address]Dr. Garima Pulliam ALT [Catalytic activity/Vol] 33 U/L Normal 16-63 [facility] Comment on above: Performed By: #### C MP, BNP, CK ####[facility] Rmfrrydksh9183 [place] [address]Dr. Garima Pulliam Anion gap [Moles/Vol] 10.3 mmol/L Normal [facility] Comment on above: Performed By: #### C MP, BNP, CK ####[facility] Ozgpbovuaf9342 [place] [address]Dr. Garima Pulliam AST [Catalytic activity/Vol] 17 U/L Normal 15-37 [facility] Comment on above: Performed By: #### C MP, BNP, CK ####[facility] Bqjjsohpnn3768 [place] [address]Dr. Garima Pulliam Bilirubin [Mass/Vol] 0.4 mg/dL Normal 0.2-1.0 [facility] Comment on above: Performed By: #### C MP, BNP, CK ####[facility] Vagdtfmwqg7336 [place] [address]Dr. Garima Pulliam Calcium [Mass/Vol] 9.1 mg/dL Normal 8.5-10.1 [facility] Comment on above: Performed By: #### C MP, BNP, CK ####[facility] Wwlysibapa7953 [place] [address]Dr. Garima Pulliam Chloride [Moles/Vol] 102 mmol/L Normal 98-107 [facility] Comment on above: Performed By: #### C MP, BNP, CK ####[facility] Jlgwmjrqge3831 [place] [address]Dr. Garima Pulliam CO2 [Moles/Vol] 29.7 mmol/L Normal 21.0-32.0 [facility] Comment on above: Performed By: #### C MP, BNP, CK ####[facility] Xccolzbjyl0725 [place] [address]Dr. Garima Pulliam Creatinine [Mass/Vol] 0.79 mg/dL Normal 0.70-1.30 [facility] Comment on above: Performed By: #### C MP, BNP, CK ####[facility] Lpqviwjkro3692 [place] [address]Dr. Garima Pulliam EGFR-AF [facility] LUCIAN >60 Normal >=60 [facility] Comment on above: Performed By: #### C MP, BNP, CK ####[facility] Lhudbpgnnd8332 [place] [address]Dr. Garima Pulliam EGFR-NON AF [facility] LUCIAN >60 Normal >=60 [facility] Comment on above: Performed By: #### C MP, BNP, CK ####[facility] Lxqiuifbey2159 [place] [address]Dr. Garima Pulliam Globulin (S) [Mass/Vol] 3.0 g/dL Normal [facility] Comment on above: Performed By: #### C MP, BNP, CK ####[facility] Usnenfqqmc8829 [place] [address]Dr. Garima Pulliam Glucose [Mass/Vol] 202 mg/dL Critically high 74-106 [facility] Comment on above: Performed By: #### C MP, BNP, CK ####[facility] Gnctaosawl9793 [place] [address]Dr. Garima Pulliam Potassium [Moles/Vol] 4.0 mmol/L Normal 3.5-5.1 [facility] Comment on above: Performed By: #### C MP, BNP, CK ####[facility] Pwablrnqye4386 [place] [address]Dr. Garima Pulliam Protein [Mass/Vol] 6.6 g/dL Normal 6.4-8.2 [facility] Comment on above: Performed By: #### C MP, BNP, CK ####[facility] Iztmiprnvj6[address] [place], [place] [address]Dr. Garima Pulliam Sodium [Moles/Vol] 138 mmol/L Normal 136-145 [facility] Comment on above: Performed By: #### C MP, BNP, CK ####[facility] Htjcwxnmwb7[address] [place], [place] [address]Dr. Garima Pulliam Urea nitrogen [Mass/Vol] 10.0 mg/dL Normal 7.0-18.0 [facility] Comment on above: Performed By: #### C MP, BNP, CK ####[facility] Yiibxzkfts8688 [place] [address]Dr. Garima Pulliam Urea nitrogen/Creatinine [Mass ratio] 12.7 mg/mg Normal [facility] Comment on above: Performed By: #### C MP, BNP, CK ####[facility] Vrmgzhomgy0691 [place] [address]Dr. Garima Pulliam US VERONICA DOP LEG BILon 023 US VERONICA DOP LEG BENOIT Normal [facility] CBC AUTO DIFFon 01-13-2023 BASO # 0.0 103/ul Normal 0.0-0.1 [facility] Comment on above: Performed By: #### C BC ####[facility] Lglonzwepk0970 [place] [id number]. Chapisrenu Pulliam Basophils/100 WBC (Bld) 0.0 % Critically low 0.2-2.0 [facility] Comment on above: Performed By: #### C BC ####[facility] Vixwhdponq1867 [place] [address]Dr. Garima Pulliam EO # 0.0 103/ul Normal 0.0-0.7 [facility] Comment on above: Performed By: #### C BC ####[facility] Jggmzgmlxr7074[address] [place], [place] [address]Dr. Garima Pulliam Eosinophils/100 WBC (Bld) 0.0 % Critically low 0.9-7.0 [facility] Comment on above: Performed By: #### C BC ####[facility] Xynmkannqx7459 [place] [address]Dr. Garima Pulliam Erythrocyte distribution width (RBC) [Ratio] 13.2 % Normal 11.0-15.0 [facility] Comment on above: Performed By: #### C BC ####[facility] Rsybwtshwe89[address] [place], [place] [address]Dr. Garima Pulliam Hematocrit (Bld) [Volume fraction] 46.7 % Normal 42.0-54.0 [facility] Comment on above: Performed By: #### C BC ####[facility] Cqqxxmoapu3177[address] [place], [place] [address]Dr. Garima Pulliam Hemoglobin (Bld) [Mass/Vol] 15.6 g/dL Normal 14.0-18.0 [facility] Comment on above: Performed By: #### C BC ####[facility] Xvosjoxcnm0817[address] [place], [place] [address]Dr. Garima Pulliam IG # 0.01 10e3/ul Normal 0.00-0.03 [facility] Comment on above: Performed By: #### C BC ####[facility] Axksudwhaw3733 [place] [id number]. Garima Pulliam IG % 0.2 % Normal 0.0-0.5 [facility] Comment on above: Performed By: #### C BC ####[facility] Hghvzmmocu9127 [place] [address]Dr. Garima Pulliam LYMPH # 0.8 103/ul Critically low 1.2-3.8 [facility] Comment on above: Performed By: #### C BC ####[facility] Wcqmrqbuci8053 [place] [id number]. Garima Pulliam Lymphocytes/100 WBC (Bld) 12.7 % Critically low 20.5-60.0 [facility] Comment on above: Performed By: #### C BC ####[facility] Udapnqbltj3967 [place] [address]Dr. Garima Pulliam MANUAL DIFF REQ NO Normal [facility] Comment on above: Performed By: #### C BC ####[facility] Fwjssppxhi7261 [place] [id number]. Garima Pulliam MCH (RBC) [Entitic mass] 30.2 pg Normal 25.9-34.0 [facility] Comment on above: Performed By: #### C BC ####[facility] Lleurnhpoq0716 [place] [id number]. Garima Pulliam MCHC (RBC) [Mass/Vol] 33.4 g/dL Normal 29.9-35.2 [facility] Comment on above: Performed By: #### C BC ####[facility] Qflbcpfutk2392 [place] [id number]. Garima Pulliam MCV (RBC) [Entitic vol] 90.3 fL Normal 80.0-94.0 [facility] Comment on above: Performed By: #### C BC ####[facility] Jdvsosatvt0309 [place] [address]Dr. Garima Heraclio MONO # 0.1 103/ul Critically low 0.3-0.8 [facility] Comment on above: Performed By: #### C BC ####[facility] Xwjmduqsjd4873 [place] [address]Dr. Garima Pulliam Monocytes/100 WBC (Bld) 0.9 % Critically low 1.7-12.0 [facility] Comment on above: Performed By: #### C BC ####[facility] Fqguuwugqx2663 [place] [address]Dr. Garima Pulliam NEUT # 5.6 103/ul Normal 1.4-6.5 [facility] Comment on above: Performed By: #### C BC ####[facility] Rnvywvyvua1758 [place] [id number]. Garima Pulliam Neutrophils/100 WBC (Bld) 86.2 % Critically high 43.0-75.0 [facility] Comment on above: Performed By: #### C BC ####[facility] Eunaefxjjz8123 [place] [address]Dr. Garima Pulliam Platelet mean volume (Bld) [Entitic vol] 9.1 fL Critically low 9.5-13.5 [facility] Comment on above: Performed By: #### C BC ####[facility] Tvfgqhussa358[address] [place], [place] [address]Dr. Garima Pulliam PLT 169 103/ul Normal 150-450 [facility] Comment on above: Performed By: #### C BC ####[facility] Gloxyjasnv2667[address] [place], [place] [address]Dr. Garima Pulliam RBC 5.17 106/ul Normal 4.70-6.10 [facility] Comment on above: Performed By: #### C BC ####[facility] Hyrtkonfik[address] [place], [place] [address]Dr. Garima Pulliam WBC 6.5 103/ul Normal 4.0-11.0 [facility] Comment on above: Performed By: #### C BC ####[facility] Lmpmyfpnac0128[address] [place], [place] [address]Dr. Garima Pulliam D-DIMERon 01-13-2023 D-DIMER 0.41 mg/L FEU Normal <=0.59 [facility] Comment on above: Performed By: #### D DIM ####[facility] Hzjwmpcopu8244 [place] [address]Dr. Garima Pulliam D-DIMER COMMENTS SEE BELOW Normal [facility] Comment on above: Result [...] Performed By: #### D DIM ####[facility] Iybcjilbdg9047[address] [place], [place] [address]Dr. Garima Pulliam PROF 14(COMP METB)on 023 Albumin [Mass/Vol] 3.4 g/dL Normal 3.4-5.0 [facility] Comment on above: Performed By: #### C MP ####[facility] Xbfgdcuokg450[address] [place], [place] [address]Dr. Garima Pulliam Albumin/Globulin [Mass ratio] 1.3 {ratio} Normal [facility] Comment on above: Performed By: #### C MP ####[facility] Afxsbmskoi5054[address] [place], [place] [address]Dr. Garima Pulliam ALP [Catalytic activity/Vol] 83 U/L Normal 46-116 [facility] Comment on above: Performed By: #### C MP ####[facility] Kwqxacrbvr2147[address] [place], [place] [address]Dr. Garima Pulliam ALT [Catalytic activity/Vol] 25 U/L Normal 16-63 [facility] Comment on above: Performed By: #### C MP ####[facility] Chwrpygpum0049 [place] [address]Dr. Garima Pulliam Anion gap [Moles/Vol] 14.5 mmol/L Normal [facility] Comment on above: Performed By: #### C MP ####[facility] Eookfubcmj5024[address] [place], [place] [address]Dr. Garima Pulliam AST [Catalytic activity/Vol] 19 U/L Normal 15-37 [facility] Comment on above: Performed By: #### C MP ####[facility] Psuosdelhc[address] [place], [place] [address]Dr. Garima Pulliam Bilirubin [Mass/Vol] 0.4 mg/dL Normal 0.2-1.0 [facility] Comment on above: Performed By: #### C MP ####[facility] Zpivclqbav658[address] [place], [place] [address]Dr. Garima Pulliam Calcium [Mass/Vol] 8.7 mg/dL Normal 8.5-10.1 [facility] Comment on above: Performed By: #### C MP ####[facility] Hvdvkcvyec7[address] [place], [place] [address]Dr. Garima Pulliam Chloride [Moles/Vol] 104 mmol/L Normal 98-107 [facility] Comment on above: Performed By: #### C MP ####[facility] Pxnnifhorf2537[address] [place], [place] [address]Dr. Garima Pulliam CO2 [Moles/Vol] 24.5 mmol/L Normal 21.0-32.0 [facility] Comment on above: Performed By: #### C MP ####[facility] Fuiboanjex1137[address] [place], [place] [address]Dr. Garima Pulliam Creatinine [Mass/Vol] 0.70 mg/dL Normal 0.70-1.30 [facility] Comment on above: Performed By: #### C MP ####[facility] Tapejbkxcv5736[address] [place], [place] [address]Dr. Garima Heraclio EGFR-AF ST LUCIAN >60 Normal >=60 [facility] Comment on above: Performed By: #### C MP ####[facility] Kxxwejdedo655[address] [place], [place] [address]Dr. Chapisrenu Heraclio EGFR-NON AF [facility] LUCIAN >60 Normal >=60 [facility] Comment on above: Performed By: #### C MP ####[facility] Roenvcjket839[address] [place], [place] [address]Dr. Chapisrenu Pulliam Globulin (S) [Mass/Vol] 2.6 g/dL Normal [facility] Comment on above: Performed By: #### C MP ####[facility] Dlulgmjztw9539 [place] [address]Dr. Garima Pulliam Glucose [Mass/Vol] 196 mg/dL Critically high 74-106 [facility] Comment on above: Performed By: #### C MP ####[facility] Usxbpvmbyc6655 [place] [address]Dr. Garima Pulliam Potassium [Moles/Vol] 4.0 mmol/L Normal 3.5-5.1 [facility] Comment on above: Performed By: #### C MP ####[facility] Glgxtkrydb5232 [place] [address]Dr. Garima Pulliam Protein [Mass/Vol] 6.0 g/dL Critically low 6.4-8.2 [facility] Comment on above: Performed By: #### C MP ####[facility] Fdmgwwiyvq[address] [place], [place] [address]Dr. Garima Pulliam Sodium [Moles/Vol] 139 mmol/L Normal 136-145 [facility] Comment on above: Performed By: #### C MP ####[facility] Tziwfcffeq33[address] [place], [place] [address]Dr. Garima Pulliam Urea nitrogen [Mass/Vol] 7.0 mg/dL Normal 7.0-18.0 [facility] Comment on above: Performed By: #### C MP ####[facility] Sddrkfwwxs[address] [place], [place] [address]Dr. Garima Heraclio Urea nitrogen/Creatinine [Mass ratio] 10.0 mg/mg Normal [facility] Comment on above: Performed By: #### C MP ####[facility] Nlugfyenjx[address] [place], [place] [address]Dr. Garima Heraclio BNPon 01-12-2023 Natriuretic peptide B (Bld) [Mass/Vol] 141.0 pg/mL Normal <=900.0 [facility] Comment on above: Performed By: #### C MP, BNP, HSTROPN ####[facility] Nvymezkssg[address] [place], [place] [address]Dr. Garima Heraclio CBC AUTO DIFFon 01-12-2023 BASO # 0.0 103/ul Normal 0.0-0.1 [facility] Comment on above: Performed By: #### C BC ####[facility] Uxcvscolwu3161 [place] [id number]. Garima Heraclio Basophils/100 WBC (Bld) 0.2 % Normal 0.2-2.0 [facility] Comment on above: Performed By: #### C BC ####[facility] Ahydcdkqxm8468 [place] [address]Dr. Garima Heraclio EO # 0.2 103/ul Normal 0.0-0.7 [facility] Comment on above: Performed By: #### C BC ####[facility] Iqoxzrblyg4865 [place] [address]Dr. Garima Heraclio Eosinophils/100 WBC (Bld) 2.7 % Normal 0.9-7.0 [facility] Comment on above: Performed By: #### C BC ####[facility] Ujndrhoikb7[address] [place], [place] [address]Dr. Garima Pulliam Erythrocyte distribution width (RBC) [Ratio] 13.3 % Normal 11.0-15.0 [facility] Comment on above: Performed By: #### C BC ####[facility] Ulwoaakast[address] [place], [place] [address]Dr. Garima Pulliam Hematocrit (Bld) [Volume fraction] 42.3 % Normal 42.0-54.0 [facility] Comment on above: Performed By: #### C BC ####[facility] [address] [place], [place] [address]Dr. Garima Pulliam Hemoglobin (Bld) [Mass/Vol] 14.3 g/dL Normal 14.0-18.0 [facility] Comment on above: Performed By: #### C BC ####[facility] C[address] [place], [place] [address]Dr. Garima Pulliam IG # 0.02 10e3/ul Normal 0.00-0.03 [facility] Comment on above: Performed By: #### C BC ####[facility] Xltwsztqtz0237 [place] [id number]. Garima Pulliam IG % 0.2 % Normal 0.0-0.5 [facility] Comment on above: Performed By: #### C BC ####[facility] Cyadfjfaja[address] [place] [id number]. Garima Pulliam LYMPH # 2.6 103/ul Normal 1.2-3.8 [facility] Comment on above: Performed By: #### C BC ####[facility] Yelmdoshqi1407 [place] [id number]. Garima Heraclio Lymphocytes/100 WBC (Bld) 29.6 % Normal 20.5-60.0 [facility] Comment on above: Performed By: #### C BC ####[facility] Vbbuttoprv[address] [place] [address]Dr. Garima Heraclio MANUAL DIFF REQ NO Normal [facility] Comment on above: Performed By: #### C BC ####[facility] Mftkttgjmk5445 [place] [id number]. Garima Pulliam MCH (RBC) [Entitic mass] 30.2 pg Normal 25.9-34.0 [facility] Comment on above: Performed By: #### C BC ####[facility] Pmpiukjsws[address] [place] [address]Dr. Garima Pulliam MCHC (RBC) [Mass/Vol] 33.8 g/dL Normal 29.9-35.2 [facility] Comment on above: Performed By: #### C BC ####[facility] Rhhcxcqtxy4001 [place] [id number]. Garima Pulliam MCV (RBC) [Entitic vol] 89.2 fL Normal 80.0-94.0 [facility] Comment on above: Performed By: #### C BC ####[facility] Iykbjsxora[address] [place], [place] [address]Dr. Chapisrenu Pulliam MONO # 0.7 103/ul Normal 0.3-0.8 [facility] Comment on above: Performed By: #### C BC ####[facility] Ppclaiiask0785 [place] [id number]. Garima Pulliam Monocytes/100 WBC (Bld) 8.3 % Normal 1.7-12.0 [facility] Comment on above: Performed By: #### C BC ####[facility] Rtexizxera8730 [place] [id number]. Garima Pulliam NEUT # 5.1 103/ul Normal 1.4-6.5 [facility] Comment on above: Performed By: #### C BC ####[facility] Asqnfzhvvv5026 [place] [id number]. Garima Pulliam Neutrophils/100 WBC (Bld) 59.0 % Normal 43.0-75.0 [facility] Comment on above: Performed By: #### C BC ####[facility] Imqdwgyfyf8543 [place] [address]Dr. Garima Pulliam Platelet mean volume (Bld) [Entitic vol] 8.7 fL Critically low 9.5-13.5 [facility] Comment on above: Performed By: #### C BC ####[facility] Hjgxwhabpn5[address] [place] [address]Dr. Garima Pulliam PLT 182 103/ul Normal 150-450 [facility] Comment on above: Performed By: #### C BC ####[facility] Rdhciohuex8353 [place] [id number]. Garima Pulliam RBC 4.74 106/ul Normal 4.70-6.10 [facility] Comment on above: Performed By: #### C BC ####[facility] Rvvthuw[address] [place], [place] [id number]. Garima Pulliam WBC 8.7 103/ul Normal 4.0-11.0 [facility] Comment on above: Performed By: #### C BC ####[facility] Upbldiugpm[address] [place], [place] [address]Dr. Garima Pulliam Covid-19 PCR (CVDTB)on 12-25 SARS-CoV-2 [...] for this test is supported by the [place] of Health and Human Service's declaration that [...] Performed By: #### C VDTBH ####[facility] Sbojkmdrdv1451 [place] [address]Dr. Garima Pulliam PROF 14(COMP METB)on 023 Albumin [Mass/Vol] 3.6 g/dL Normal 3.4-5.0 [facility] Comment on above: Performed By: #### C MP, BNP, HSTROPN ####[facility] Aavrdsrdjd1705 [place] [address]Dr. Garima Pulliam Albumin/Globulin [Mass ratio] 1.5 {ratio} Normal [facility] Comment on above: Performed By: #### C MP, BNP, HSTROPN ####[facility] Obxzcpslba14[address] [place] [address]Dr. Garima Pulliam ALP [Catalytic activity/Vol] 79 U/L Normal 46-116 [facility] Comment on above: Performed By: #### C MP, BNP, HSTROPN ####[facility] Jafvynisdz8983 [place] [address]Dr. Garima Pulliam ALT [Catalytic activity/Vol] 27 U/L Normal 16-63 [facility] Comment on above: Performed By: #### C MP, BNP, HSTROPN ####[facility] Wsnwxpmsrr5589 [place] [address]Dr. Garima Pulliam Anion gap [Moles/Vol] 11.7 mmol/L Normal Th [facility] Comment on above: Performed By: #### C MP, BNP, HSTROPN ####[facility] Eludangxzu8125 [place] [address]Dr. Garima Pulliam AST [Catalytic activity/Vol] 21 U/L Normal 15-37 [facility] Comment on above: Performed By: #### C MP, BNP, HSTROPN ####[facility] Skdlxwodvp7100 [place] [address]Dr. Garima Pulliam Bilirubin [Mass/Vol] 0.3 mg/dL Normal 0.2-1.0 [facility] Comment on above: Performed By: #### C MP, BNP, HSTROPN ####[facility] Vktxesiynt3738 [place] [address]Dr. Garima Pulliam Calcium [Mass/Vol] 8.9 mg/dL Normal 8.5-10.1 [facility] Comment on above: Performed By: #### C MP, BNP, HSTROPN ####[facility] Zabscpqxst6343 [place] [address]Dr. Garima Pulliam Chloride [Moles/Vol] 107 mmol/L Normal 98-107 [facility] Comment on above: Performed By: #### C MP, BNP, HSTROPN ####[facility] Fgpfabvmci9561 [place] [address]Dr. Garima Pulliam CO2 [Moles/Vol] 26.0 mmol/L Normal 21.0-32.0 [facility] Comment on above: Performed By: #### C MP, BNP, HSTROPN ####[facility] Drdcbigafm7787 [place] [address]Dr. Garima Pulliam Creatinine [Mass/Vol] 0.65 mg/dL Critically low 0.70-1.30 [facility] Comment on above: Performed By: #### C MP, BNP, HSTROPN ####[facility] Mjmrdnfcuz2949 [place] [address]Dr. Yilan Pulliam EGFR-AF [facility] LUCIAN >60 Normal >=60 [facility] Comment on above: Performed By: #### C MP, BNP, HSTROPN ####[facility] Gubghyrbpj6176 [place] [address]Dr. Garima Pulliam EGFR-NON AF [facility] LUCIAN >60 Normal >=60 [facility] Comment on above: Performed By: #### C MP, BNP, HSTROPN ####[facility] Gvqplhbuen6377 [place] [address]Dr. Garima Pulliam Globulin (S) [Mass/Vol] 2.4 g/dL Normal [facility] Comment on above: Performed By: #### C MP, BNP, HSTROPN ####[facility] Kyldqceotv[address] [place], [place] [address]Dr. Garima Pulliam Glucose [Mass/Vol] 85 mg/dL Normal 74-106 [facility] Comment on above: Performed By: #### C MP, BNP, HSTROPN ####[facility] Vxrzvocdzz9796 [place] [address]Dr. Garima Pulliam Potassium [Moles/Vol] 3.7 mmol/L Normal 3.5-5.1 [facility] Comment on above: Performed By: #### C MP, BNP, HSTROPN ####[facility] Mvzjpuxvwg1922 [place] [address]Dr. Garima Pulliam Protein [Mass/Vol] 6.0 g/dL Critically low 6.4-8.2 [facility] Comment on above: Performed By: #### C MP, BNP, HSTROPN ####[facility] Xvijrmbuft5639 [place] [address]Dr. Garima Pulliam Sodium [Moles/Vol] 141 mmol/L Normal 136-145 [facility] Comment on above: Performed By: #### C MP, BNP, HSTROPN ####[facility] Qcdclrcfsl3932 [place] [address]Dr. Garima Pulliam Urea nitrogen [Mass/Vol] 5.0 mg/dL Critically low 7.0-18.0 [facility] Comment on above: Performed By: #### C MP, BNP, HSTROPN ####[facility] Wtfpolfgku1957 [place] [address]Dr. Garima Pulliam Urea nitrogen/Creatinine [Mass ratio] 7.7 mg/mg Normal [facility] Comment on above: Performed By: #### C MP, BNP, HSTROPN ####[facility] Bmccriythx4780 [place] [address]Dr. Garima Pulliam PROTIMEon 01-12-2023 INR Coag (PPP) [Relative time] 1.16 {INR} Normal [facility] Comment on above: Performed By: #### P TT, PT ####[facility] Nmyvivvvdm8566 [place] [address]Dr. Garima Pulliam INR GUIDELINES SEE BELOW Normal [facility] Comment on above: Result Comment: WESLEY RED INR: 2.0 - 3.0 CONDITIONS NOT LISTED BELOW 2.5 - 3.5 FOR PROSTHETIC HEART VALVE REPLACEMENT 2.5 - 3.5 RECURRENT THROMBOSIS Performed By: #### P TT, PT ####[facility] [address] [place], [place] [address]Dr. Garima Pulliam PT Coag (PPP) [Time] 12.2 s Critically high 9.0-11.6 [facility] Comment on above: Performed By: #### P TT, PT ####[facility] Gfditwgsvn0771 [place] [address]Dr. Garima Pulliam PTTon 01-12-2023 aPTT Coag (Bld) [Time] 29.1 s Normal 22.3-36.2 [facility] Comment on above: Performed By: #### P TT, PT ####[facility] Ektgqpmmib[address] [place], [place] [address]Dr. Garima Pulliam TROPONIN, HIGH SENSITIVITYon 01-12-2023 HSTROP 10.3 pg/mL Normal 4.0-76.1 [facility] Comment on above: Result Comment: CUT- OFF POINTS HAVE BEEN ESTABLISHED BASED ON THE FOURTH UNIVERSAL DEFINITIONS OF MYOCARDIALINFARCTION. THE UPPER REFERENCE LIMIT (URL) OF TROPONIN, DEFINED THE 99TH PERCENTILE OFcTnI DISTRIBUTION IN A REFERENCE POPULATION, HAS BEEN CONFIRMED THE DECISION THRESHOLDFOR PR DIAGNOSIS. Performed By: #### H STROPN ####[facility] Yvkixsytbx3095 [place] [address]Dr. Garima Pulliam HSTROP 9.2 pg/mL Normal 4.0-76.1 [facility] Comment on above: Result Comment: CUT- OFF POINTS HAVE BEEN ESTABLISHED BASED ON THE FOURTH UNIVERSAL DEFINITIONS OF MYOCARDIALINFARCTION. THE UPPER REFERENCE LIMIT (URL) OF TROPONIN, DEFINED THE 99TH PERCENTILE OFcTnI DISTRIBUTION IN A REFERENCE POPULATION, HAS BEEN CONFIRMED THE DECISION THRESHOLDFOR PR DIAGNOSIS. Performed By: #### C MP, BNP, HSTROPN ####[facility] Okmxtpvsym7491 [place] [address]Dr. Garima Pulliam XR CHEST 1 Von 01-12-2023 XR CHEST 1 V Normal [facility] XR CHEST 1 Von 01-01-2023 XR CHEST 1 V Normal [facility] CARDIAC NASH 3-6on 3 CK [Catalytic activity/Vol] 196 U/L Normal 39-308 [facility] Comment on above: Performed By: #### C MREP ####[facility] Giaonnhjnd4125 [place] [address]Dr. Garima Pulliam CK.MB [Mass/Vol] 7.41 ng/mL Critically high <=3.60 [facility] Comment on above: Performed By: #### C MREP ####[facility] Vhomasaufi4817 [place] [address]Dr. Garima Pulliam HSTROP 10.3 pg/mL Normal 4.0-76.1 [facility] Comment on above: Result Comment: CUT- OFF POINTS HAVE BEEN ESTABLISHED BASED ON THE FOURTH UNIVERSAL DEFINITIONS OF MYOCARDIALINFARCTION. THE UPPER REFERENCE LIMIT (URL) OF TROPONIN, DEFINED THE 99TH PERCENTILE OFcTnI DISTRIBUTION IN A REFERENCE POPULATION, HAS BEEN CONFIRMED THE DECISION THRESHOLDFOR PR DIAGNOSIS. Performed By: #### C MREP ####[facility] Dnqkuvxvcw6746 [place] [id number]. Garima Pulliam XR CHEST 1 Von 12-26-2022 XR CHEST 1 V Normal [facility] BNPon 12-25-2022 Natriuretic peptide B (Bld) [Mass/Vol] 98.0 pg/mL Normal <=900.0 [facility] Comment on above: Performed By: #### B MARVIN FRENCH CMADM ####[facility] Omdyfdyszo8429 [place] [address]Dr. Garima Pulliam CARDIAC NASH ADMITon 023 CK [Catalytic activity/Vol] 208 U/L Normal 39-308 [facility] Comment on above: Performed By: #### B MARVIN FRENCH CMADM ####[facility] Lojhxjzgxs7598 [place] [address]Dr. Garima Pulliam CK.MB [Mass/Vol] 7.63 ng/mL Critically high <=3.60 [facility] Comment on above: Performed By: #### B MARVIN FRENCH CMADM ####[facility] Xouvoqfqki[address] [place], [place] [address]Dr. Garima Pulliam HSTROP 8.8 pg/mL Normal 4.0-76.1 [facility] Comment on above: Result Comment: CUT- OFF POINTS HAVE BEEN ESTABLISHED BASED ON THE FOURTH UNIVERSAL DEFINITIONS OF MYOCARDIALINFARCTION. THE UPPER REFERENCE LIMIT (URL) OF TROPONIN, DEFINED THE 99TH PERCENTILE OFcTnI DISTRIBUTION IN A REFERENCE POPULATION, HAS BEEN CONFIRMED THE DECISION THRESHOLDFOR PR DIAGNOSIS. Performed By: #### B MARVIN FRENCH CMADM ####[facility] Danazgaeyq95[address] [place], [place] [address]Dr. Garima Pulliam DORIS 83 ng/mL Normal 16-96 [facility] Comment on above: Performed By: #### B MARVIN FRENCH CMADM ####[facility] Ockoolqdxt[address] [place], [place] [address]Dr. Garima Pulliam CBC AUTO DIFFon 12-25-2022 BASO # 0.0 103/ul Normal 0.0-0.1 [facility] Comment on above: Performed By: #### C BC ####[facility] Hetkbonyrw[address] [place], [place] [address]Dr. Garima Pulliam Basophils/100 WBC (Bld) 0.0 % Critically low 0.2-2.0 [facility] Comment on above: Performed By: #### C BC ####[facility] Izdaysbiwz4947 [place] [address]Dr. Garima Pulliam EO # 0.0 103/ul Normal 0.0-0.7 [facility] Comment on above: Performed By: #### C BC ####[facility] Olpzhuwmta4764[address] [place], [place] [address]Dr. Garima Pulliam Eosinophils/100 WBC (Bld) 0.7 % Critically low 0.9-7.0 [facility] Comment on above: Performed By: #### C BC ####[facility] Suyyyswwkr7460[address] [place], [place] [address]Dr. Garima Pulliam Erythrocyte distribution width (RBC) [Ratio] 13.4 % Normal 11.0-15.0 [facility] Comment on above: Performed By: #### C BC ####[facility] Fglxwmfzdy96[address] [place], [place] [address]Dr. Garima Pulliam Hematocrit (Bld) [Volume fraction] 42.9 % Normal 42.0-54.0 [facility] Comment on above: Performed By: #### C BC ####[facility] Vjlcctamqc[address] [place], [place] [address]Dr. Garima Pulliam Hemoglobin (Bld) [Mass/Vol] 14.4 g/dL Normal 14.0-18.0 [facility] Comment on above: Performed By: #### C BC ####[facility] Feeyzijeqm78[address] [place], [place] [address]Dr. Garima Pulliam IG # 0.00 10e3/ul Normal 0.00-0.03 [facility] Comment on above: Performed By: #### C BC ####[facility] Ewjeibjjhw7[address] [place], [place] [address]Dr. Garima Pulliam IG % 0.0 % Normal 0.0-0.5 [facility] Comment on above: Performed By: #### C BC ####[facility] Hkkadjzsce[address]35[address] [place], [place] [address]Dr. Garima Pulliam LYMPH # 2.4 103/ul Normal 1.2-3.8 [facility] Comment on above: Performed By: #### C BC ####[facility] Lmjonzvjbi0313 [place] [id number]. Chapisrenu Pulliam Lymphocytes/100 WBC (Bld) 29.2 % Normal 20.5-60.0 [facility] Comment on above: Performed By: #### C BC ####[facility] Hpuwlawlev7320 [place] [id number]. Garima Pulliam MANUAL DIFF REQ NO Normal [facility] Comment on above: Performed By: #### C BC ####[facility] Nijgncbutn0652 [place] [id number]. Garima Pulliam MCH (RBC) [Entitic mass] 30.7 pg Normal 25.9-34.0 [facility] Comment on above: Performed By: #### C BC ####[facility] Qhadwqaldf12[address] [place], [place] [address]Dr. Garima Pulliam MCHC (RBC) [Mass/Vol] 33.6 g/dL Normal 29.9-35.2 [facility] Comment on above: Performed By: #### C BC ####[facility] Rxqgegvxoz[address] [place], [place] [address]Dr. Garima Pulliam MCV (RBC) [Entitic vol] 91.5 fL Normal 80.0-94.0 [facility] Comment on above: Performed By: #### C BC ####[facility] Szclcspyrt[address] [place], [place] [address]Dr. Garima Pulliam MONO # 0.0 103/ul Critically low 0.3-0.8 [facility] Comment on above: Performed By: #### C BC ####[facility] Fvgxnnbllo2104 [place] [address]Dr. Garima Pulliam Monocytes/100 WBC (Bld) 8.0 % Normal 1.7-12.0 [facility] Comment on above: Performed By: #### C BC ####[facility] Uvemdkjsqv6840[address] [place], [place] [address]Dr. Garima Pulliam NEUT # 5.1 103/ul Normal 1.4-6.5 [facility] Comment on above: Performed By: #### C BC ####[facility] Qrzxyshxjr7871 [place], [place] [address]Am. Garima Pulliam Neutrophils/100 WBC (Bld) 62.8 % Normal 43.0-75.0 [facility] Comment on above: Performed By: #### C BC ####[facility] Hogqpnltxs0735 [place], [place] [address]Cf. Garima Pulliam Platelet mean volume (Bld) [Entitic vol] 8.6 fL Critically low 9.5-13.5 [facility] Comment on above: Performed By: #### C BC ####[facility] Jyljoudrok0824 [place] [id number]. Garima Pulliam PLT 200 103/ul Normal 150-450 [facility] Comment on above: Performed By: #### C BC ####[facility] Kagbvfvhus7904 [place] [id number]. Garima Pulliam RBC 4.69 106/ul Critically low 4.70-6.10 [facility] Comment on above: Performed By: #### C BC ####[facility] Voopuqdfhe6352 [place], [place] [address]Lk. Garima Pulliam WBC 8.2 103/ul Normal 4.0-11.0 [facility] Comment on above: Performed By: #### C BC ####[facility] Sqpbedxhor5341 [place], [place] [address]Ks. Garima Pulliam Covid-19 PCR ([facility])on SARS-CoV-2 (COVID-19) RNA MARIE+probe Ql (Unsp spec) [...] for this test is supported by the [employer] of Health and Human Service's declaration [...] Performed By: #### C VDTBH ####[facility] Qrhbipvrwz[address] [place], [place] [address]Dr. Garima Pulliam INFLUENZA A AND B AGon 12-25 INFLUANEGH SEE BELOW Normal [facility] Comment on above: Result Comment: Nega tive for Flu A protein angiten. Infection due to Flu A cannot be ruled out. Flu A angiten in the sample may be below the detection limit of the test. Performed By: #### I NFLUAB ####[facility] Ezwmhqykkd[address] [place], [place] [address]Dr. Garima Pulliam INFLUBNEGH SEE BELOW Normal [facility] Comment on above: Result Comment: Nega tive for Flu B protein antigen. Infection due to Flu B cannot be ruled out. Flu B antigen in the sample may be below the detection limit of the test. Performed By: #### I NFLUAB ####[facility] Yfoxrfbllt26[address] [place], [place] [address]Dr. Garima Pulliam INFLUENZA A AG Negative Normal NEGATIVE SEE COMMENT [facility] Comment on above: Performed By: #### I NFLUAB ####[facility] Ywhvjmnzco08[address] [place], [place] [address]Dr. renu [facility] INFLUENZA B AG Negative Normal NEGATIVE SEE COMMENT [facility] Comment on above: Performed By: #### I NFLUAB ####[facility] Adwdavvxjv70[address] [place], [place] [address]Dr. Garima Pulliam PROF CHEM 8 (BAS METB)on Anion gap [Moles/Vol] 11.1 mmol/L Normal Th [facility] Comment on above: Performed By: #### B LAUNDRY TECH, BMP, CMADM ####[facility] Qbwaduerol[address] [place], [place] [address]Dr. Garima Pulliam Calcium [Mass/Vol] 8.5 mg/dL Normal 8.5-10.1 [facility] Comment on above: Performed By: #### B LAUNDRY TECH, MARVIN, CMADM ####[facility] Tgcinsseej6030 [place] [id number]. Garima Pulliam Chloride [Moles/Vol] 106 mmol/L Normal 98-107 [facility] Comment on above: Performed By: #### B LAUNDRY TECH, BMP, CMADM ####[facility] Ijtqhacmto5012 [place] [address]Dr. Garima Pulliam CO2 [Moles/Vol] 27.4 mmol/L Normal 21.0-32.0 [facility] Comment on above: Performed By: #### B LAUNDRY TECH, MARVIN, CMADM ####[facility] Qmdcnjxoij2212 [place] [address]Dr. Garima Pulliam Creatinine [Mass/Vol] 0.65 mg/dL Critically low 0.70-1.30 [facility] Comment on above: Performed By: #### B LAUNDRY TECH, MARVIN, CMADM ####[facility] Fjdzyujkma2220 [place] [address]Dr. Garima Pulliam EGFR-AF [facility] LUCIAN >60 Normal >=60 [facility] Comment on above: Performed By: #### B LAUNDRY TECH, BMP, CMADM ####[facility] Oevvaslolk2478 [place] [address]Dr. Garima Pulliam EGFR-NON AF [facility] LUCIAN >60 Normal >=60 [facility] Comment on above: Performed By: #### B LAUNDRY TECH, BMP, CMADM ####[facility] Gyktacawrm5013 [place] [address]Dr. Garima Pulliam Glucose [Mass/Vol] 140 mg/dL Critically high 74-106 [facility] Comment on above: Performed By: #### B LAUNDRY TECH, BMP, CMADM ####[facility] Xbvhxrlozk1481 [place] [address]Dr. Garima Pulliam Potassium [Moles/Vol] 3.5 mmol/L Normal 3.5-5.1 [facility] Comment on above: Performed By: #### B LAUNDRY TECH, BMP, CMADM ####[facility] Xzjmvpkjdd0410 [place] [address]Dr. Gariam Pulliam Sodium [Moles/Vol] 141 mmol/L Normal 136-145 [facility] Comment on above: Performed By: #### B LAUNDRY TECH, BMP, CMADM ####[facility] Cpgdbgsllj3338 [place] [address]Dr. Garima Pulliam Urea nitrogen [Mass/Vol] 8.0 mg/dL Normal 7.0-18.0 [facility] Comment on above: Performed By: #### B LAUNDRY TECH, BMP, CMADM ####[facility] Pwbbueafat1622 [place] [address]Dr. Garima Pulliam Urea nitrogen/Creatinine [Mass ratio] 12.3 mg/mg Normal [facility] Comment on above: Performed By: #### B LAUNDRY TECH, BMP, CMADM ####[facility] Jvdjwzesux22[address] [place], [place] [address]Dr. Garima Pulliam CARDIAC NASH ADMITon 023 CK [Catalytic activity/Vol] 165 U/L Normal 39-308 [facility] Comment on above: Performed By: #### B DAVID, CMADM ####[facility] Jxthqjhwwb[address] [place], [place] [address]Dr. Garima Pulliam CK.MB [Mass/Vol] 6.48 ng/mL Critically high <=3.60 [facility] Comment on above: Performed By: #### B MP, CMADM ####[facility] Hhsimlcddf2168[address] [place], [place] [address]Dr. Garima Pulliam HSTROP 11.7 pg/mL Normal 4.0-76.1 [facility] Comment on above: Result Comment: CUT- OFF POINTS HAVE BEEN ESTABLISHED BASED ON THE FOURTH UNIVERSAL DEFINITIONS OF MYOCARDIALINFARCTION. THE UPPER REFERENCE LIMIT (URL) OF TROPONIN, DEFINED THE 99TH PERCENTILE OFcTnI DISTRIBUTION IN A REFERENCE POPULATION, HAS BEEN CONFIRMED THE DECISION THRESHOLDFOR PR DIAGNOSIS. Performed By: #### B MP, CMADM ####[facility] Owxmqrcocw99[address] [place], [place] [address]Dr. Garima Pulliam DORIS 83 ng/mL Normal 16-96 [facility] Comment on above: Performed By: #### B MP, CMADM ####[facility] Xjltlyytiv4117 [place] [address]Dr. Garima Pulliam CBC AUTO DIFFon 12-10-2022 BASO # 0.0 103/ul Normal 0.0-0.1 [facility] Comment on above: Performed By: #### C BC ####[facility] Elkyxnjrym75[address] [place], [place] [address]Dr. Garima Heraclio Basophils/100 WBC (Bld) 0.3 % Normal 0.2-2.0 [facility] Comment on above: Performed By: #### C BC ####[facility] Rellirelwe74[address] [place], [place] [address]Dr. Garima Pulliam EO # 0.1 103/ul Normal 0.0-0.7 [facility] Comment on above: Performed By: #### C BC ####[facility] Wdivhlobvi[address] [place], [place] [address]Dr. Garima Pulliam Eosinophils/100 WBC (Bld) 0.4 % Critically low 0.9-7.0 [facility] Comment on above: Performed By: #### C BC ####[facility] Twvnzaczlq[address] [place], [place] [address]Dr. Garima Pulliam Erythrocyte distribution width (RBC) [Ratio] 13.2 % Normal 11.0-15.0 [facility] Comment on above: Performed By: #### C BC ####[facility] Yyqupxucbj[address] [place], [place] [address]Dr. Garima Pulliam Hematocrit (Bld) [Volume fraction] 42.4 % Normal 42.0-54.0 [facility] Comment on above: Performed By: #### C BC ####[facility] Usyaswqtzz[address] [place], [place] [address]Dr. Garima Pulliam Hemoglobin (Bld) [Mass/Vol] 14.4 g/dL Normal 14.0-18.0 [facility] Comment on above: Performed By: #### C BC ####[facility] Rkecvwrnml5486 [place] [id number]. Garima Heraclio IG # 0.05 10e3/ul Critically high 0.00-0.03 [facility] Comment on above: Performed By: #### C BC ####[facility] Cileuxucec[address] [place] [address]Dr. Garima Heraclio IG % 0.4 % Normal 0.0-0.5 [facility] Comment on above: Performed By: #### C BC ####[facility] Kzpkgmjlzh[address] [place], [place] [address]Dr. Garima Pulliam LYMPH # 0.8 103/ul Critically low 1.2-3.8 [facility] Comment on above: Performed By: #### C BC ####[facility] Ruloqydbkf[address] [place], [place] [address]Dr. Chapisrenu Pulliam Lymphocytes/100 WBC (Bld) 6.5 % Critically low 20.5-60.0 [facility] Comment on above: Performed By: #### C BC ####[facility] Wjqwjfekhe[address] [place], [place] [address]Dr. Chapisrenu Pulliam MANUAL DIFF REQ NO Normal [facility] Comment on above: Performed By: #### C BC ####[facility] Qoxtqhakif[address] [place], [place] [address]DrAdalberto Garima Pulliam MCH (RBC) [Entitic mass] 30.5 pg Normal 25.9-34.0 [facility] Comment on above: Performed By: #### C BC ####[facility] Vnmomxrgbi[address] [place], [place] [address]DrAdalberto Garima Heraclio MCHC (RBC) [Mass/Vol] 34.0 g/dL Normal 29.9-35.2 [facility] Comment on above: Performed By: #### C BC ####[facility] Baifjfvdtr[address] [place], [place] [address]DrAdalberto Garima Heraclio MCV (RBC) [Entitic vol] 89.8 fL Normal 80.0-94.0 [facility] Comment on above: Performed By: #### C BC ####[facility] Ralsurqcmr[address] [place], [place] [address]Dr. Garima Pulliam MONO # 0.2 103/ul Critically low 0.3-0.8 [facility] Comment on above: Performed By: #### C BC ####[facility] Bulcoefhiz[address] [place] [id number]. Garima Pulliam Monocytes/100 WBC (Bld) 2.0 % Normal 1.7-12.0 [facility] Comment on above: Performed By: #### C BC ####[facility] Okwgwxgmaj[address] [place] [address]Dr. Chapisrenu Heraclio NEUT # 10.5 103/ul Critically high 1.4-6.5 [facility] Comment on above: Performed By: #### C BC ####[facility] Pxyhdglrvo[address] [place] [address]Dr. Garima Pulliam Neutrophils/100 WBC (Bld) 90.4 % Critically high 43.0-75.0 [facility] Comment on above: Performed By: #### C BC ####[facility] Vrfohfvjrb27[address] [place] [address]Dr. Garima Pulliam Platelet mean volume (Bld) [Entitic vol] 9.4 fL Critically low 9.5-13.5 [facility] Comment on above: Performed By: #### C BC ####[facility] Azykxssjho9[address] [place] [address]Dr. Garima Pulliam PLT 198 103/ul Normal 150-450 [facility] Comment on above: Performed By: #### C BC ####[facility] Hkbbgmmidi5[address] [place] [address]Dr. Garima Pulliam RBC 4.72 106/ul Normal 4.70-6.10 [facility] Comment on above: Performed By: #### C BC ####[facility] Nlixlqcgsv9195 [place] [id number]. Garima Pulliam WBC 11.6 103/ul Critically high 4.0-11.0 [facility] Comment on above: Performed By: #### C BC ####[facility] Ygscnvnfic59[address] [place] [address]DrAdalberto Pulliam PROF CHEM 8 (BAS METB)on Anion gap [Moles/Vol] 11.3 mmol/L Normal [facility] Comment on above: Performed By: #### B NANCY HERNANDEZ ####[facility] Ckwppyjgdp6[address] [place] [address]Dr. Garima Pulliam Calcium [Mass/Vol] 8.9 mg/dL Normal 8.5-10.1 [facility] Comment on above: Performed By: #### B NANCY HERNANDEZ ####[facility] Hnckaqtvhn05[address] [place] [address]Dr. Garima Pulliam Chloride [Moles/Vol] 103 mmol/L Normal 98-107 [facility] Comment on above: Performed By: #### B NANCY HERNANDEZ ####[facility] Dodvgjtxbf389[address] [place], [place] [address]Dr. Garima Pulliam CO2 [Moles/Vol] 28.2 mmol/L Normal 21.0-32.0 [facility] Comment on above: Performed By: #### NANCY Larkin MP ####[facility] Pbihbwluxt8[address] [place] [address]Dr. Chapisrenu Pulliam Creatinine [Mass/Vol] 0.60 mg/dL Critically low 0.70-1.30 [facility] Comment on above: Performed By: #### NANCY Larkin MP ####[facility] Vnvrlcwnnw[address] [place] [address]Dr. Garima Pulliam EGFR-AF [facility] LUCIAN >60 Normal >=60 [facility] Comment on above: Performed By: #### NANCY Larkin MP ####[facility] Acxankiswo17[address] [place] [address]Dr. Garima Pulliam EGFR-NON AF [facility] LUCIAN >60 Normal >=60 [facility] Comment on above: Performed By: #### NANCY Larkin MP ####[facility] Tyrlatpset[address] [place], [place] [address]Dr. Garima Pulliam Glucose [Mass/Vol] 166 mg/dL Critically high 74-106 [facility] Comment on above: Performed By: #### B MP, CMADM ####[facility] Wosdshjrgy33[address] [place] [address]Dr. Garima Pulliam Potassium [Moles/Vol] 3.5 mmol/L Normal 3.5-5.1 [facility] Comment on above: Performed By: #### B MP, CMADM ####[facility] Nwonzswlxi3954 [place] [address]Dr. aGrima Pulliam Sodium [Moles/Vol] 139 mmol/L Normal 136-145 [facility] Comment on above: Performed By: #### B DAVID, CMADM ####[facility] Bvakynloxc9080 [place] [address]Dr. Garima Heraclio Urea nitrogen [Mass/Vol] 9.0 mg/dL Normal 7.0-18.0 [facility] Comment on above: Performed By: #### B DAVID, NANCY ####[facility] Ynaaforzwz84[address] [place], [place] [address]Dr. Garima Heraclio Urea nitrogen/Creatinine [Mass ratio] 15.0 mg/mg Normal [facility] Comment on above: Performed By: #### B DAVID, CMAANA ROSA ####[facility] Nsqmlkdxmw8[address] [place], [place] [address]Dr. Garima Pulliam XR CHEST 1 Von 12-10-2022 XR CHEST 1 V Normal [facility] BNPon 11-27-2022 Natriuretic peptide B (Bld) [Mass/Vol] 95.0 pg/mL Normal <=900.0 [facility] Comment on above: Performed By: #### C MP, HSTROPN, BNP ####[facility] Rwzvdqpblz[address] [place], [place] [address]Dr. Garima Heraclio CBC AUTO DIFFon 11-27-2022 BASO # 0.0 103/ul Normal 0.0-0.1 [facility] Comment on above: Performed By: #### C BC ####[facility] Zwxfdwrprp932[address] [place], [place] [address]Dr. Garima Heraclio Basophils/100 WBC (Bld) 0.2 % Normal 0.2-2.0 [facility] Comment on above: Performed By: #### C BC ####[facility] Wxfufbqkbc5042 [place] [id number]. Garima Pulliam EO # 0.2 103/ul Normal 0.0-0.7 [facility] Comment on above: Performed By: #### C BC ####[facility] Abpphfhylv7275 [place] [id number]. Garima Pulliam Eosinophils/100 WBC (Bld) 2.0 % Normal 0.9-7.0 [facility] Comment on above: Performed By: #### C BC ####[facility] Tpgfmudgab14[address] [place], [place] [address]Dr. Garima Pulliam Erythrocyte distribution width (RBC) [Ratio] 13.2 % Normal 11.0-15.0 [facility] Comment on above: Performed By: #### C BC ####[facility] Fyslgeetsd7[address] [place], [place] [address]Dr. Garima Pulliam Hematocrit (Bld) [Volume fraction] 42.4 % Normal 42.0-54.0 [facility] Comment on above: Performed By: #### C BC ####[facility] Iuhkwuavju[address] [place], [place] [address]Dr. Garima Pulliam Hemoglobin (Bld) [Mass/Vol] 14.4 g/dL Normal 14.0-18.0 [facility] Comment on above: Performed By: #### C BC ####[facility] Ejhjhspfrg722[address] [place], [place] [address]Dr. Garima Pulliam IG # 0.04 10e3/ul Critically high 0.00-0.03 [facility] Comment on above: Performed By: #### C BC ####[facility] Qnslrvmulp9[address] [place], [place] [address]Dr. Garima Pulliam IG % 0.4 % Normal 0.0-0.5 [facility] Comment on above: Performed By: #### C BC ####[facility] Lvnrsjqxox[address] [place], [place] [address]Dr. Garima Pulliam LYMPH # 2.2 103/ul Normal 1.2-3.8 [facility] Comment on above: Performed By: #### C BC ####[facility] Idnnknklhm9237 [place] [id number]. Garima Pulliam Lymphocytes/100 WBC (Bld) 21.5 % Normal 20.5-60.0 [facility] Comment on above: Performed By: #### C BC ####[facility] Xqflfrmcvi1756 [place] [id number]. Garima Heraclio MANUAL DIFF REQ NO Normal [facility] Comment on above: Performed By: #### C BC ####[facility] Whokbraije[address]23 [place] [id number]. Garima Heraclio MCH (RBC) [Entitic mass] 30.4 pg Normal 25.9-34.0 [facility] Comment on above: Performed By: #### C BC ####[facility] Wqvfjrpmvc6554 [place] [address]Dr. Garima Heraclio MCHC (RBC) [Mass/Vol] 34.0 g/dL Normal 29.9-35.2 [facility] Comment on above: Performed By: #### C BC ####[facility] Rzxgcgefei1231 [place] [id number]. Garima Pulliam MCV (RBC) [Entitic vol] 89.6 fL Normal 80.0-94.0 [facility] Comment on above: Performed By: #### C BC ####[facility] Leqimdiiaz8978 [place] [address]Dr. Garima Pulliam MONO # 0.8 103/ul Normal 0.3-0.8 [facility] Comment on above: Performed By: #### C BC ####[facility] Ekodhahyrw9217 [place] [address]Dr. Chapisrenu Pulliam Monocytes/100 WBC (Bld) 7.7 % Normal 1.7-12.0 [facility] Comment on above: Performed By: #### C BC ####[facility] Mkjygdxmnr[address] [place], [place] [address]Dr. Garima Pulliam NEUT # 7.0 103/ul Critically high 1.4-6.5 [facility] Comment on above: Performed By: #### C BC ####[facility] Btbcxiqyxb2649 [place] [address]Dr. Garima Pulliam Neutrophils/100 WBC (Bld) 68.2 % Normal 43.0-75.0 [facility] Comment on above: Performed By: #### C BC ####[facility] Yffpwvhojd2744 [place] [address]Dr. Chapisrenu Pulliam Platelet mean volume (Bld) [Entitic vol] 8.9 fL Critically low 9.5-13.5 [facility] Comment on above: Performed By: #### C BC ####[facility] Tfqvadgmno18[address] [place] [address]Dr. Garima Pulliam PLT 222 103/ul Normal 150-450 [facility] Comment on above: Performed By: #### C BC ####[facility] Knefwrrrxt97[address] [place] [address]Dr. Garima Pulliam RBC 4.73 106/ul Normal 4.70-6.10 [facility] Comment on above: Performed By: #### C BC ####[facility] Mrjesmmoer7[address] [place] [address]Dr. Garima Pulliam WBC 10.3 103/ul Normal 4.0-11.0 [facility] Comment on above: Performed By: #### C BC ####[facility] Ajpxuzpxsd1258 [place] [address]Dr. Garima Pulliam PROF 14(COMP METB)on 023 Albumin [Mass/Vol] 3.7 g/dL Normal 3.4-5.0 [facility] Comment on above: Performed By: #### C MP, HSTROPN, BNP ####[facility] Dskubdortc12[address] [place] [address]Dr. Chapisrenu Pulliam Albumin/Globulin [Mass ratio] 1.5 {ratio} Normal [facility] Comment on above: Performed By: #### C MP, HSTROPN, BNP ####[facility] Vuzhdutyny34[address] [place] [address]Dr. Garima Pulliam ALP [Catalytic activity/Vol] 79 U/L Normal 46-116 [facility] Comment on above: Performed By: #### C MP, HSTROPN, BNP ####[facility] Ptymxdkugv6536 [place] [address]Dr. Garima Pulliam ALT [Catalytic activity/Vol] 32 U/L Normal 16-63 [facility] Comment on above: Performed By: #### C MP, HSTROPN, BNP ####[facility] Ayxaaxctoq4868 [place] [address]Dr. Garima Pulliam Anion gap [Moles/Vol] 9.5 mmol/L Normal [facility] Comment on above: Performed By: #### C MP, HSTROPN, BNP ####[facility] Okkruparzv86[address] [place], [place] [address]Dr. Garima Pulliam AST [Catalytic activity/Vol] 25 U/L Normal 15-37 [facility] Comment on above: Performed By: #### C MP, HSTROPN, BNP ####[facility] Hqmpvdfoyp[address] [place], [place] [address]Dr. Chapislan Pulliam Bilirubin [Mass/Vol] 0.4 mg/dL Normal 0.2-1.0 [facility] Comment on above: Performed By: #### C MP, HSTROPN, BNP ####[facility] Huvmjrqzuc45[address] [place], [place] [address]Dr. Garima Pulliam Calcium [Mass/Vol] 8.9 mg/dL Normal 8.5-10.1 [facility] Comment on above: Performed By: #### C MP, HSTROPN, BNP ####[facility] Ekqezgjptl[address] [place], [place] [address]Dr. Chapislan Pulliam Chloride [Moles/Vol] 103 mmol/L Normal 98-107 [facility] Comment on above: Performed By: #### C MP, HSTROPN, BNP ####[facility] Rwyndbuyez85[address] [place], [place] [address]Dr. Yilan Pulliam CO2 [Moles/Vol] 28.6 mmol/L Normal 21.0-32.0 [facility] Comment on above: Performed By: #### C MP, HSTROPN, BNP ####[facility] Iaksdjguaf9[address] [place] [address]Dr. Garima Pulliam Creatinine [Mass/Vol] 0.72 mg/dL Normal 0.70-1.30 [facility] Comment on above: Performed By: #### C MP, HSTROPN, BNP ####[facility] Rvpzqvknvw5439 [place] [address]Dr. Garima Pulliam EGFR-AF [facility] LUCIAN >60 Normal >=60 [facility] Comment on above: Performed By: #### C MP, HSTROPN, BNP ####[facility] Nujyttlrcl4459 [place] [address]Dr. Garima Pulliam EGFR-NON AF [facility] LUCIAN >60 Normal >=60 [facility] Comment on above: Performed By: #### C MP, HSTROPN, BNP ####[facility] Uvgfwpapue8224 [place] [address]Dr. Garima Pulliam Globulin (S) [Mass/Vol] 2.5 g/dL Normal [facility] Comment on above: Performed By: #### C MP, HSTROPN, BNP ####[facility] Ljuzqapbfr[address] [place], [place] [address]Dr. Garima Pulliam Glucose [Mass/Vol] 114 mg/dL Critically high 74-106 [facility] Comment on above: Performed By: #### C MP, HSTROPN, BNP ####[facility] Nisqdhglvs[address] [place], [place] [address]Dr. Garima Pulliam Potassium [Moles/Vol] 4.1 mmol/L Normal 3.5-5.1 [facility] Comment on above: Performed By: #### C MP, HSTROPN, BNP ####[facility] Oujukcrxmp8255[address] [place], [place] [address]Dr. Garima Pulliam Protein [Mass/Vol] 6.2 g/dL Critically low 6.4-8.2 Th [facility] Comment on above: Performed By: #### C MP, HSTROPN, BNP ####[facility] Shnjkefrdl5[address] [place], [place] [address]Dr. Yilan Pulliam Sodium [Moles/Vol] 137 mmol/L Normal 136-145 [facility] Comment on above: Performed By: #### C MP, HSTROPN, BNP ####[facility] Ncnhgzkzmn4138 [place] [address]Dr. Garima Pulliam Urea nitrogen [Mass/Vol] 13.0 mg/dL Normal 7.0-18.0 [facility] Comment on above: Performed By: #### C MP, HSTROPN, BNP ####[facility] Lbtwtmpujr5378 [place] [address]Dr. Garima Pulliam Urea nitrogen/Creatinine [Mass ratio] 18.1 mg/mg Normal [facility] Comment on above: Performed By: #### C MP, HSTROPN, BNP ####[facility] Vnewkanjrc95[address] [place], [place] [address]Dr. Garima Pulliam TROPONIN, HIGH SENSITIVITYon 11-27-2022 HSTROP 11.8 pg/mL Normal 4.0-76.1 [facility] Comment on above: Result Comment: CUT- OFF POINTS HAVE BEEN ESTABLISHED BASED ON THE FOURTH UNIVERSAL DEFINITIONS OF MYOCARDIALINFARCTION. THE UPPER REFERENCE LIMIT (URL) OF TROPONIN, DEFINED THE 99TH PERCENTILE OFcTnI DISTRIBUTION IN A REFERENCE POPULATION, HAS BEEN CONFIRMED THE DECISION THRESHOLDFOR PR DIAGNOSIS. Performed By: #### C MP, HSTROPN, BNP ####[facility] Wcxhpb[address]cl[address] [place], [place] [address]Dr. Garima Pulliam XR CHEST 1 Von 11-27-2022 XR CHEST 1 V Normal [facility] BNPon 11-20-2022 Natriuretic peptide B (Bld) [Mass/Vol] 73.0 pg/mL Normal <=900.0 [facility] Comment on above: Performed By: #### B MP, HSTROPN, BNP ####[facility] Ubwhjxenny[address] [place], [place] [address]Dr. Garima Pulliam CBC AUTO DIFFon 11-20-2022 BASO # 0.0 103/ul Normal 0.0-0.1 [facility] Comment on above: Performed By: #### C BC ####[facility] Flojlmengt1186 [place] [id number]. Garima Pulliam Basophils/100 WBC (Bld) 0.3 % Normal 0.2-2.0 [facility] Comment on above: Performed By: #### C BC ####[facility] Ppbxsnkamg5791 [place] [address]Dr. Garima Pulliam EO # 0.2 103/ul Normal 0.0-0.7 [facility] Comment on above: Performed By: #### C BC ####[facility] Bjlkaawnsd6205 [place] [address]Dr. Garima Pulliam Eosinophils/100 WBC (Bld) 2.1 % Normal 0.9-7.0 [facility] Comment on above: Performed By: #### C BC ####[facility] Kycbocjnhq07[address] [place], [place] [address]Dr. Garima Pulliam Erythrocyte distribution width (RBC) [Ratio] 13.2 % Normal 11.0-15.0 [facility] Comment on above: Performed By: #### C BC ####[facility] Apmwzlvuhw[address] [place], [place] [address]Dr. Garima Pulliam Hematocrit (Bld) [Volume fraction] 43.4 % Normal 42.0-54.0 [facility] Comment on above: Performed By: #### C BC ####[facility] Gezpmribct[address] [place], [place] [address]Dr. Garima Pulliam Hemoglobin (Bld) [Mass/Vol] 14.6 g/dL Normal 14.0-18.0 [facility] Comment on above: Performed By: #### C BC ####[facility] Gdamdiffyq7134 [place] [address]Dr. Garima Pulliam IG # 0.02 10e3/ul Normal 0.00-0.03 [facility] Comment on above: Performed By: #### C BC ####[facility] Yesihzbscr9936 [place] [address]Dr. Garima Pulliam IG % 0.2 % Normal 0.0-0.5 [facility] Comment on above: Performed By: #### C BC ####[facility] Mwismaemvo8453 [place] [id number]. Garima Heraclio LYMPH # 2.1 103/ul Normal 1.2-3.8 [facility] Comment on above: Performed By: #### C BC ####[facility] Hbyqpjphzw6049 [place] [address]Dr. Garima Heraclio Lymphocytes/100 WBC (Bld) 19.2 % Critically low 20.5-60.0 [facility] Comment on above: Performed By: #### C BC ####[facility] Npvtbibctn8259 [place] [address]Dr. Chapisrenu Pulliam MANUAL DIFF REQ NO Normal [facility] Comment on above: Performed By: #### C BC ####[facility] Qrdjieylzw7881 [place] [address]Dr. Garima Heraclio MCH (RBC) [Entitic mass] 30.4 pg Normal 25.9-34.0 [facility] Comment on above: Performed By: #### C BC ####[facility] Rhohferdci5365 [place] [address]Dr. Garima Pulliam MCHC (RBC) [Mass/Vol] 33.6 g/dL Normal 29.9-35.2 [facility] Comment on above: Performed By: #### C BC ####[facility] Mjvvnfllfg2134 [place] [address]Dr. Garima Heraclio MCV (RBC) [Entitic vol] 90.4 fL Normal 80.0-94.0 [facility] Comment on above: Performed By: #### C BC ####[facility] Rgzptjdwqy0910 [place] [address]Dr. Garima Heraclio MONO # 0.6 103/ul Normal 0.3-0.8 [facility] Comment on above: Performed By: #### C BC ####[facility] Kevkkwwzxh9407 [place] [address]Dr. Garima Heraclio Monocytes/100 WBC (Bld) 5.8 % Normal 1.7-12.0 [facility] Comment on above: Performed By: #### C BC ####[facility] Xyswdpwble0903 [place], [place] [address]El. Garima Pulliam NEUT # 7.8 103/ul Critically high 1.4-6.5 [facility] Comment on above: Performed By: #### C BC ####[facility] Kmlyqnfbsz2244 [place] [address]Dr. Garima Pulliam Neutrophils/100 WBC (Bld) 72.4 % Normal 43.0-75.0 [facility] Comment on above: Performed By: #### C BC ####[facility] Ajmafcttsx9567 [place] [address]Dr. Garima Pulliam Platelet mean volume (Bld) [Entitic vol] 8.7 fL Critically low 9.5-13.5 [facility] Comment on above: Performed By: #### C BC ####[facility] Qjpducptcy2984 [place] [address]Dr. Garima Pulliam PLT 184 103/ul Normal 150-450 [facility] Comment on above: Performed By: #### C BC ####[facility] Merqnjcwcw4450 [place], [place] [address]Rk. Garima Pulliam RBC 4.80 106/ul Normal 4.70-6.10 [facility] Comment on above: Performed By: #### C BC ####[facility] Wybdxkxrtp0013 [place] [address]Dr. Garima Pulliam WBC 10.8 103/ul Normal 4.0-11.0 [facility] Comment on above: Performed By: #### C BC ####[facility] Pfnkxchwvz4967 [place] [id number]. Garima Pulliam Covid-19 PCR ([facility])on 10-24 SARS-CoV-2 (COVID-19) RNA MARIE+probe Ql (Unsp [...] for this test is supported by the [employer] Worker of Health and Human Service's declaration [...] Performed By: #### C VDTBH ####[facility] Nsjpczzcmh[address] [place], [place] [address]Dr. Garima Pulliam INFLUENZA A AND B AGon 11-20 [facility] SEE BELOW Normal [facility] Comment on above: Result Comment: Nega tive for Flu A protein angiten. Infection due to Flu A cannot be ruled out. Flu A angiten in the sample may be below the detection limit of the test. Performed By: #### I NFLUAB ####[facility] Edshjazxpv9[address] [place], [place] [address]Dr. Garima Pulliam INFLUBNEGH SEE BELOW Normal [facility] Comment on above: Result Comment: Nega tive for Flu B protein antigen. Infection due to Flu B cannot be ruled out. Flu B antigen in the sample may be below the detection limit of the test. Performed By: #### I NFLUAB ####[facility] Baronzpxew[address] [place], [place] [address]Dr. Garima Pulliam INFLUENZA A AG Negative Normal NEGATIVE SEE COMMENT [facility] Comment on above: Performed By: #### I NFLUAB ####[facility] Ueyfoqndkl[address] [place], [place] [address]Dr. Garima [facility] INFLUENZA B AG Negative Normal NEGATIVE SEE COMMENT [facility] Comment on above: Performed By: #### I NFLUAB ####[facility] Hfanqhadlc[address] [place], [place] [address]Dr. Garima Pulliam PROF CHEM 8 (BAS METB)on Anion gap [Moles/Vol] 8.2 mmol/L Normal [facility] Comment on above: Performed By: #### B MP, HSTROPN, BNP ####[facility] Wfmpxqhcvp0452 [place] [address]Dr. Garima Pulliam Calcium [Mass/Vol] 8.7 mg/dL Normal 8.5-10.1 [facility] Comment on above: Performed By: #### B MP, HSTROPN, BNP ####[facility] Lpujnatpoy5[address] [place] [address]Dr. Garima Pulliam Chloride [Moles/Vol] 103 mmol/L Normal 98-107 [facility] Comment on above: Performed By: #### B MP, HSTROPN, BNP ####[facility] Pxwjopcjqv[address] [place], [place] [address]Dr. Garima Pulliam CO2 [Moles/Vol] 29.4 mmol/L Normal 21.0-32.0 [facility] Comment on above: Performed By: #### B MP, HSTROPN, BNP ####[facility] Slmbcvcumm[address] [place], [place] [address]Dr. Garima Pulliam Creatinine [Mass/Vol] 0.69 mg/dL Critically low 0.70-1.30 [facility] Comment on above: Performed By: #### B MP, HSTROPN, BNP ####[facility] Watbamvwxh75[address] [place] [address]Dr. Garima Pulliam EGFR-AF [facility] LUCIAN >60 Normal >=60 [facility] Comment on above: Performed By: #### B MP, HSTROPN, BNP ####[facility] Yxninydekl[address] [place], [place] [address]Dr. Garima Pulliam EGFR-NON AF [facility] LUCIAN >60 Normal >=60 [facility] Comment on above: Performed By: #### B MP, HSTROPN, BNP ####[facility] Micwxwkuro3275 [place] [address]Dr. Garima Pulliam Glucose [Mass/Vol] 209 mg/dL Critically high 74-106 [facility] Comment on above: Performed By: #### B MP, HSTROPN, BNP ####[facility] Vrapoctyqx8182 [place] [address]Dr. Garima Pulliam Potassium [Moles/Vol] 3.6 mmol/L Normal 3.5-5.1 [facility] Comment on above: Performed By: #### B MP, HSTROPN, BNP ####[facility] Nxdhobjdse3762 [place] [address]Dr. Garima Pulliam Sodium [Moles/Vol] 137 mmol/L Normal 136-145 [facility] Comment on above: Performed By: #### B MP, HSTROPN, BNP ####[facility] Axqpujebuj5051 [place] [address]Dr. Garima Pulliam Urea nitrogen [Mass/Vol] 11.0 mg/dL Normal 7.0-18.0 [facility] Comment on above: Performed By: #### B MP, HSTROPN, BNP ####[facility] Eapydjtqpl4[address] [place] [address]Dr. Garima Pulliam Urea nitrogen/Creatinine [Mass ratio] 15.9 mg/mg Normal [facility] Comment on above: Performed By: #### B MP, HSTROPN, BNP ####[facility] [facility] [address] [place] [address]Dr. Garima Pulliam TROPONIN, HIGH SENSITIVITYon 11-20-2022 HSTROP 8.7 pg/mL Normal 4.0-76.1 [facility] Comment on above: Result Comment: CUT- OFF POINTS HAVE BEEN ESTABLISHED BASED ON THE FOURTH UNIVERSAL DEFINITIONS OF MYOCARDIALINFARCTION. THE UPPER REFERENCE LIMIT (URL) OF TROPONIN, DEFINED THE 99TH PERCENTILE OFcTnI DISTRIBUTION IN A REFERENCE POPULATION, HAS BEEN CONFIRMED THE DECISION THRESHOLDFOR PR DIAGNOSIS. Performed By: #### B MP, HSTROPN, BNP ####[facility] [address]zpkrvit[address] [place] [address]Dr. Garima Pulliam XR CHEST 1 Von 11-20-2022 XR CHEST 1 V Normal [facility] XR CHEST 1 Von 10-02-2022 XR CHEST 1 V Normal [facility] BNPon 09-29-2022 Natriuretic peptide B (Bld) [Mass/Vol] 107.0 pg/mL Normal <=900.0 [facility] Comment on above: Performed By: #### C MP, BNP, CMADM ####[facility] Fqrurncnrd[address] [place] [address]Dr. Garima Pulliam CARDIAC NASH ADMITon 022 CK [Catalytic activity/Vol] 190 U/L Normal 39-308 [facility] Comment on above: Performed By: #### C MP, BNP, CMADM ####[facility] Fktwjnjooc[address] [place] [address]Dr. Garima Heraclio CK.MB [Mass/Vol] 11.11 ng/mL Critically high <=3.60 [facility] Comment on above: Performed By: #### C MP, BNP, CMADM ####[facility] Cbmcwvujpt[address] [place] [address]Dr. Garima Pulliam HSTROP 11.8 pg/mL Normal 4.0-76.1 [facility] Comment on above: Result Comment: CUT- OFF POINTS HAVE BEEN ESTABLISHED BASED ON THE FOURTH UNIVERSAL DEFINITIONS OF MYOCARDIALINFARCTION. THE UPPER REFERENCE LIMIT (URL) OF TROPONIN, DEFINED THE 99TH PERCENTILE OFcTnI DISTRIBUTION IN A REFERENCE POPULATION, HAS BEEN CONFIRMED THE DECISION THRESHOLDFOR PR DIAGNOSIS. Performed By: #### C MP, BNP, CMADM ####[facility] Mzmfwwwjng[address] [place] [address]Dr. Garima Pulliam DORIS 133 ng/mL Critically high 16-96 [facility] Comment on above: Performed By: #### C MP, BNP, CMADM ####[facility] Lktciffoem[address] [place] [address]Dr. Garima Heraclio CBC AUTO DIFFon 09-29-2022 BASO # 0.0 103/ul Normal 0.0-0.1 [facility] Comment on above: Performed By: #### C BC ####[facility] K[address]ieumbllu[address] [place] [address]Dr. Garima Heraclio Basophils/100 WBC (Bld) 0.2 % Normal 0.2-2.0 [facility] Comment on above: Performed By: #### C BC ####[facility] Glrfybftyo[address] [place] [id number]. Garima Pulliam EO # 0.1 103/ul Normal 0.0-0.7 [facility] Comment on above: Performed By: #### C BC ####[facility] Wcpcmlvfdo[address] [place] [id number]. Garima Pulliam Eosinophils/100 WBC (Bld) 1.4 % Normal 0.9-7.0 [facility] Comment on above: Performed By: #### C BC ####[facility] Xzrpkwroqo[address] [place], [place] [address]Dr. Garima Pulliam Erythrocyte distribution width (RBC) [Ratio] 13.7 % Normal 11.0-15.0 [facility] Comment on above: Performed By: #### C BC ####[facility] Isavemjzjr264[address] [place], [place] [address]Dr. Garima Pulliam Hematocrit (Bld) [Volume fraction] 45.4 % Normal 42.0-54.0 [facility] Comment on above: Performed By: #### C BC ####[facility] Fpachplkru[address] [place], [place] [address]Dr. Garima Pulliam Hemoglobin (Bld) [Mass/Vol] 14.8 g/dL Normal 14.0-18.0 [facility] Comment on above: Performed By: #### C BC ####[facility] Xkynbkcuyt[address] [place], [place] [address]Dr. Garima Pulliam IG # 0.04 10e3/ul Critically high 0.00-0.03 [facility] Comment on above: Performed By: #### C BC ####[facility] Lmpdbrsiro[address] [place], [place] [address]Dr. Garima Pulliam IG % 0.5 % Normal 0.0-0.5 [facility] Comment on above: Performed By: #### C BC ####[facility] Qgbswjeyjq[address] [place], [place] [address]Dr. Garima Pulliam LYMPH # 1.1 103/ul Critically low 1.2-3.8 [facility] Comment on above: Performed By: #### C BC ####[facility] Rgdetuiouk5[address] [place] [id number]. Garima Pulliam Lymphocytes/100 WBC (Bld) 12.7 % Critically low 20.5-60.0 [facility] Comment on above: Performed By: #### C BC ####[facility] Ccygqkcbdv06[address] [place] [id number]. Chapisrenu Pulliam MANUAL DIFF REQ NO Normal [facility] Comment on above: Performed By: #### C BC ####[facility] Niqmmbwizg[address] [place], [place] [id number]. Garima Heraclio MCH (RBC) [Entitic mass] 30.0 pg Normal 25.9-34.0 [facility] Comment on above: Performed By: #### C BC ####[facility] Jklkzvdgmg[address] [place], [place] [address]Dr. Garima Heraclio MCHC (RBC) [Mass/Vol] 32.6 g/dL Normal 29.9-35.2 [facility] Comment on above: Performed By: #### C BC ####[facility] Nhcraqewft[address] [place], [place] [id number]. Garima Heraclio MCV (RBC) [Entitic vol] 91.9 fL Normal 80.0-94.0 [facility] Comment on above: Performed By: #### C BC ####[facility] Cobspppenk[address] [place], [place] [address]Dr. Garima Pulliam MONO # 0.4 103/ul Normal 0.3-0.8 [facility] Comment on above: Performed By: #### C BC ####[facility] Qopfdwtzmr[address] [place], [place] [id number]. Chapisrenu Pulliam Monocytes/100 WBC (Bld) 4.8 % Normal 1.7-12.0 [facility] Comment on above: Performed By: #### C BC ####[facility] Sigdkddjff27[address] [place], [place] [address]Dr. Garima Pulliam NEUT # 7.1 103/ul Critically high 1.4-6.5 [facility] Comment on above: Performed By: #### C BC ####[facility] Wglwcavvlh4025 [place], [place] [address]Dt. Garima Pulliam Neutrophils/100 WBC (Bld) 80.4 % Critically high 43.0-75.0 [facility] Comment on above: Performed By: #### C BC ####[facility] Jzkivuixmk34[address] [place] [id number]. Garima Pulliam Platelet mean volume (Bld) [Entitic vol] 9.1 fL Critically low 9.5-13.5 [facility] Comment on above: Performed By: #### C BC ####[facility] Rdelipfsbi9[address] [place] [id number]. Garima Pulliam PLT 200 103/ul Normal 150-450 [facility] Comment on above: Performed By: #### C BC ####[facility] Auhidoeyrf8207 [place] [address]Dr. Garima Pulliam RBC 4.94 106/ul Normal 4.70-6.10 [facility] Comment on above: Performed By: #### C BC ####[facility] Jvbxcxctix1913 [place] [id number]. Garima Pulliam WBC 8.9 103/ul Normal 4.0-11.0 [facility] Comment on above: Performed By: #### C BC ####[facility] Mbsxenzlso9420 [place] [id number]. Garima Pulliam Covid-19 PCR (CVDTB)on SARS-CoV-2 (COVID-19) [...] for this test is supported by the [place] of Health and Human Service's declaration that [...] Performed By: #### C VDTBH ####[facility] Hx[address]fgkphll[address] [place] [address]Dr. Garima Pulliam LACTATE/LACTIC ACIDon 2021 Lactate [Moles/Vol] 1.7 mmol/L Normal 0.4-1.9 [facility] Comment on above: Performed By: #### L ACT ####[facility] Syteocojen[address] [place], [place] [address]Dr. Garima Pulliam PROF 14(COMP METB)on 022 Albumin [Mass/Vol] 3.8 g/dL Normal 3.4-5.0 [facility] Comment on above: Performed By: #### C MP, BNP, CMADM ####[facility] Xhuxbbfpvn[address] [place], [place] [address]Dr. Garima Pulliam Albumin/Globulin [Mass ratio] 1.5 {ratio} Normal [facility] Comment on above: Performed By: #### C MP, BNP, CMADM ####[facility] Fujflygcrk9104 [place] [address]Dr. Garima Pulliam ALP [Catalytic activity/Vol] 62 U/L Normal 46-116 [facility] Comment on above: Performed By: #### C MP, BNP, CMADM ####[facility] Uvvbfnjxgv9[address] [place] [address]Dr. Garima Pulliam ALT [Catalytic activity/Vol] 37 U/L Normal 16-63 [facility] Comment on above: Performed By: #### C MP, BNP, CMADM ####[facility] Rnfaoiwsff9547 [place] [address]Dr. Garima Pulliam Anion gap [Moles/Vol] 8.0 mmol/L Normal [facility] Comment on above: Performed By: #### C MP, BNP, CMADM ####[facility] Paxqhuujov[address] [place] [address]Dr. Garima Pulliam AST [Catalytic activity/Vol] 20 U/L Normal 15-37 [facility] Comment on above: Performed By: #### C MP, BNP, CMADM ####[facility] Mnrhrptfyg7996 [place] [address]Dr. Garima Pulliam Bilirubin [Mass/Vol] 0.6 mg/dL Normal 0.2-1.0 [facility] Comment on above: Performed By: #### C MP, BNP, CMADM ####[facility] Cpslivxite8638 [place] [address]Dr. Garima Pulliam Calcium [Mass/Vol] 9.1 mg/dL Normal 8.5-10.1 [facility] Comment on above: Performed By: #### C MP, BNP, CMADM ####[facility] Ebajmrbjkp96[address] [place], [place] [address]Dr. Garima Pulliam Chloride [Moles/Vol] 103 mmol/L Normal 98-107 [facility] Comment on above: Performed By: #### C MP, BNP, CMADM ####[facility] Thptjvzrjk[address] [place], [place] [address]Dr. Garima Pulliam CO2 [Moles/Vol] 31.8 mmol/L Normal 21.0-32.0 [facility] Comment on above: Performed By: #### C MP, BNP, CMADM ####[facility] Xedgepveho[address] [place], [place] [address]Dr. Garima Pulliam Creatinine [Mass/Vol] 0.63 mg/dL Critically low 0.70-1.30 [facility] Comment on above: Performed By: #### C MP, BNP, CMADM ####[facility] Ridhvtnjrn[address] [place], [place] [address]Dr. Garima Pulliam EGFR-AF [facility] LUCIAN >60 Normal >=60 [facility] Comment on above: Performed By: #### C MP, BNP, CMADM ####[facility] Psghzryesn[address] [place], [place] [address]Dr. Garima Pulliam EGFR-NON AF [facility] LUCIAN >60 Normal >=60 [facility] Comment on above: Performed By: #### C MP, BNP, CMADM ####[facility] Qogpmmjryc0447 [place] [address]Dr. Garima Pulliam Globulin (S) [Mass/Vol] 2.6 g/dL Normal [facility] Comment on above: Performed By: #### C MP, BNP, CMADM ####[facility] Hizjgownfs2413 [place] [address]Dr. Garima Pulliam Glucose [Mass/Vol] 103 mg/dL Normal 74-106 [facility] Comment on above: Performed By: #### C MP, BNP, CMADM ####[facility] Lgyjnredqa4443 [place] [address]Dr. Garima Pulliam Potassium [Moles/Vol] 3.8 mmol/L Normal 3.5-5.1 [facility] Comment on above: Performed By: #### C MP, BNP, CMADM ####[facility] Nhjblvhydw4514 [place] [address]Dr. Garima Pulliam Protein [Mass/Vol] 6.4 g/dL Normal 6.4-8.2 [facility] Comment on above: Performed By: #### C MP, BNP, CMADM ####[facility] Dfssslrknh78[address] [place] [address]Dr. Garima Pulliam Sodium [Moles/Vol] 139 mmol/L Normal 136-145 [facility] Comment on above: Performed By: #### C MP, BNP, CMADM ####[facility] Lphwhqivbf6147 [place] [address]Dr. Garima Pulliam Urea nitrogen [Mass/Vol] 7.0 mg/dL Normal 7.0-18.0 [facility] Comment on above: Performed By: #### C MP, BNP, CMADM ####[facility] Hafxzakpca3496 [place] [address]Dr. Garima Pulliam Urea nitrogen/Creatinine [Mass ratio] 11.1 mg/mg Normal [facility] Comment on above: Performed By: #### C MP, BNP, CMADM ####[facility] Leudxumfpr8368 [place] [address]Dr. Garima Pulliam PROTIMEon 09-29-2022 INR Coag (PPP) [Relative time] 1.14 {INR} Normal [facility] Comment on above: Performed By: #### P T, PTT ####[facility] Bpsutcaine[address] [place], [place] [address]Dr. Garima Pulliam INR GUIDELINES SEE BELOW Normal [facility] Comment on above: Result Comment: WESLEY RED INR: 2.0 - 3.0 CONDITIONS NOT LISTED BELOW 2.5 - 3.5 FOR PROSTHETIC HEART VALVE REPLACEMENT 2.5 - 3.5 RECURRENT THROMBOSIS Performed By: #### P T, PTT ####[facility] Paudxynfsq3914[address] [place], [place] [address]Dr. Garima Pulliam PT Coag (PPP) [Time] 12.2 s Critically high 9.0-11.6 [facility] Comment on above: Performed By: #### P T, PTT ####[facility] Btwxwqovqk[address] [place], [place] [address]Dr. Garima Pulliam PTTon 09-29-2022 aPTT Coag (Bld) [Time] 29.3 s Normal 22.3-36.2 [facility] Comment on above: Performed By: #### P T, PTT ####[facility] Azurlcirhr4722[address] [place], [place] [address]Dr. Garima Pulliam XR CHEST 1 Von 09-29-2022 XR CHEST 1 V Normal [facility] CBC AUTO DIFFon 09-26-2022 BASO # 0.0 103/ul Normal 0.0-0.1 [facility] Comment on above: Performed By: #### C BC ####[facility] Stadnlaacn[address] [place], [place] [address]Dr. Garima Pulliam Basophils/100 WBC (Bld) 0.2 % Normal 0.2-2.0 [facility] Comment on above: Performed By: #### C BC ####[facility] Gekrzzosun[address] [place], [place] [address]Dr. Garima Pulliam EO # 0.1 103/ul Normal 0.0-0.7 [facility] Comment on above: Performed By: #### C BC ####[facility] Khpraawobo6[address] [place], [place] [address]Dr. Garima Pulliam Eosinophils/100 WBC (Bld) 1.0 % Normal 0.9-7.0 [facility] Comment on above: Performed By: #### C BC ####[facility] Gmzteqcvor9320[address] [place], [place] [address]Dr. Garima Pulliam Erythrocyte distribution width (RBC) [Ratio] 13.4 % Normal 11.0-15.0 [facility] Comment on above: Performed By: #### C BC ####[facility] Syyjrcwmdq375[address] [place], [place] [address]Dr. Garima Pulliam Hematocrit (Bld) [Volume fraction] 46.3 % Normal 42.0-54.0 [facility] Comment on above: Performed By: #### C BC ####[facility] Pkysgzinvo[address] [place], [place] [address]Dr. Garima Pulliam Hemoglobin (Bld) [Mass/Vol] 15.3 g/dL Normal 14.0-18.0 [facility] Comment on above: Performed By: #### C BC ####[facility] Zibuaizwlb[address] [place], [place] [address]Dr. Garima Pulliam IG # 0.05 10e3/ul Critically high 0.00-0.03 [facility] Comment on above: Performed By: #### C BC ####[facility] Xxzwozmras9033[address] [place], [place] [address]Dr. Garima Pulliam IG % 0.4 % Normal 0.0-0.5 [facility] Comment on above: Performed By: #### C BC ####[facility] Jzjweictnv4254[address] [place], [place] [address]Dr. Garima Pulliam LYMPH # 1.7 103/ul Normal 1.2-3.8 [facility] Comment on above: Performed By: #### C BC ####[facility] Tdulbgywiz2915[address] [place], [place] [address]Dr. Garima Pulliam Lymphocytes/100 WBC (Bld) 12.7 % Critically low 20.5-60.0 [facility] Comment on above: Performed By: #### C BC ####[facility] Ahudjerpch[address] [place] [address]DrAdalberto Pulliam MANUAL DIFF REQ NO Normal [facility] Comment on above: Performed By: #### C BC ####[facility] Vflhcnbdfd9448 [place] [address]Dr. Garima Pulliam MCH (RBC) [Entitic mass] 30.1 pg Normal 25.9-34.0 [facility] Comment on above: Performed By: #### C BC ####[facility] Geamtwpqhl5917[address] [place], [place] [address]Dr. Garima Pulliam MCHC (RBC) [Mass/Vol] 33.0 g/dL Normal 29.9-35.2 [facility] Comment on above: Performed By: #### C BC ####[facility] Jkljjlfqtd0560[address] [place], [place] [address]DrAdalberto Pulliam MCV (RBC) [Entitic vol] 91.1 fL Normal 80.0-94.0 [facility] Comment on above: Performed By: #### C BC ####[facility] Fhkscpvfdm[address] [place], [place] [address]DrAdalberto Pulliam MONO # 0.9 103/ul Critically high 0.3-0.8 [facility] Comment on above: Performed By: #### C BC ####[facility] Puweimasmm2401[address] [place], [place] [address]DrAdalberto Pulliam Monocytes/100 WBC (Bld) 7.0 % Normal 1.7-12.0 [facility] Comment on above: Performed By: #### C BC ####[facility] Svxbpugabg[address] [place], [place] [address]DrAdalberto Pulliam NEUT # 10.4 103/ul Critically high 1.4-6.5 [facility] Comment on above: Performed By: #### C BC ####[facility] Xfueideiuy7[address] [place], [place] [address]DrAdalberto Pulliam Neutrophils/100 WBC (Bld) 78.7 % Critically high 43.0-75.0 [facility] Comment on above: Performed By: #### C BC ####[facility] Gpadiakmqx3159 [place] [address]Dr. Garima Pulliam Platelet mean volume (Bld) [Entitic vol] 8.9 fL Critically low 9.5-13.5 [facility] Comment on above: Performed By: #### C BC ####[facility] Gttzmoyipp7580 [place] [address]Dr. Garima Pulliam PLT 195 103/ul Normal 150-450 [facility] Comment on above: Performed By: #### C BC ####[facility] Dfolmbbjth[address] [place], [place] [address]Dr. Garima Pulliam RBC 5.08 106/ul Normal 4.70-6.10 [facility] Comment on above: Performed By: #### C BC ####[facility] Adimacxrkx5234[address] [place], [place] [address]Dr. Garima Pulliam WBC 13.2 103/ul Critically high 4.0-11.0 [facility] Comment on above: Performed By: #### C BC ####[facility] Gbzvxrxcia958[address] [place], [place] [address]Dr. Garima Pullaim PROF 14(COMP METB)on 022 Albumin [Mass/Vol] 3.5 g/dL Normal 3.4-5.0 [facility] Comment on above: Performed By: #### C DAVID HSTROPN ####[facility] Rahzeptndi8876 [place] [address]Dr. Garima Pulliam Albumin/Globulin [Mass ratio] 1.2 {ratio} Normal [facility] Comment on above: Performed By: #### C RAFAT HERNANDEZTROPN ####[facility] Haiopiovxv9294 [place] [address]Dr. Garima Pulliam ALP [Catalytic activity/Vol] 71 U/L Normal 46-116 [facility] Comment on above: Performed By: #### C DAVID HSTROPN ####[facility] Wroqvhronv4673 [place] [address]Dr. Garima Pulliam ALT [Catalytic activity/Vol] 37 U/L Normal 16-63 [facility] Comment on above: Performed By: #### C DAVID, HSTROPN ####[facility] Haxcinbisd1507 [place] [address]Dr. Garima Pulliam Anion gap [Moles/Vol] 4.8 mmol/L Normal [facility] Comment on above: Performed By: #### C DAVID, HSTROPN ####[facility] Ccighiuwqi163[address] [place], [place] [address]Dr. Garima Pulliam AST [Catalytic activity/Vol] 21 U/L Normal 15-37 [facility] Comment on above: Performed By: #### C DAVID, HSTROPN ####[facility] Tsjcdrpcia[address] [place], [place] [address]Dr. Garima Pulliam Bilirubin [Mass/Vol] 0.3 mg/dL Normal 0.2-1.0 [facility] Comment on above: Performed By: #### C DAVID, HSTROPN ####[facility] Gascyoitgo1064 [place] [address]Dr. Garima Pulliam Calcium [Mass/Vol] 8.9 mg/dL Normal 8.5-10.1 [facility] Comment on above: Performed By: #### C DAVID, HSTROPN ####[facility] Uxqxjwkaiz3760 [place] [address]Dr. Garima Pulliam Chloride [Moles/Vol] 106 mmol/L Normal 98-107 [facility] Comment on above: Performed By: #### C DAVID, HSTROPN ####[facility] Ghkwglbklt6910 [place] [address]Dr. Garima Pulliam CO2 [Moles/Vol] 29.8 mmol/L Normal 21.0-32.0 [facility] Comment on above: Performed By: #### C DAVID, HSTROPN ####[facility] Rmtixrdvml4687 [place] [address]Dr. Garima Pulliam Creatinine [Mass/Vol] 0.68 mg/dL Critically low 0.70-1.30 [facility] Comment on above: Performed By: #### C MP, HSTROPN ####[facility] Khzxawljqs2612 [place] [address]Dr. Garima Pulliam EGFR-AF [facility] LUCIAN >60 Normal >=60 [facility] Comment on above: Performed By: #### C MP, HSTROPN ####[facility] Yqshtevpxk6172 [place] [address]Dr. Chapislan Pulliam EGFR-NON AF [facility] LUCIAN >60 Normal >=60 [facility] Comment on above: Performed By: #### C MP, HSTROPN ####[facility] Daiqtbnpaf6166 [place] [address]Dr. Garima Pulliam Globulin (S) [Mass/Vol] 2.8 g/dL Normal [facility] Comment on above: Performed By: #### C MP, HSTROPN ####[facility] Mombnsppdg9554 [place] [address]Dr. Garima Pulliam Glucose [Mass/Vol] 133 mg/dL Critically high 74-106 [facility] Comment on above: Performed By: #### C MP, HSTROPN ####[facility] Gsppgpwpwu6181 [place] [address]Dr. Chapisrenu Pulliam Potassium [Moles/Vol] 3.6 mmol/L Normal 3.5-5.1 [facility] Comment on above: Performed By: #### C MP, HSTROPN ####[facility] Stuynzdaaw6[address] [place] [address]Dr. Chapisrenu Pulliam Protein [Mass/Vol] 6.3 g/dL Critically low 6.4-8.2 [facility] Comment on above: Performed By: #### C MP, HSTROPN ####[facility] Ajjqufxqox[address] [place], [place] [address]Dr. Chapisrenu Pulliam Sodium [Moles/Vol] 137 mmol/L Normal 136-145 [facility] Comment on above: Performed By: #### C MP, HSTROPN ####[facility] Vqhnmizwdn[address] [place], [place] [address]Dr. Garima Pulliam Urea nitrogen [Mass/Vol] 15.0 mg/dL Normal 7.0-18.0 [facility] Comment on above: Performed By: #### C DAVID HSTROPN ####[facility] Nvnrajmcki5244 [place] [address]Dr. Chapisrenu Pulliam Urea nitrogen/Creatinine [Mass ratio] 22.1 mg/mg Normal [facility] Comment on above: Performed By: #### C DAVID HSTROPN ####[facility] Vgkdvkopdk1634 [place] [address]Dr. Garima Heraclio TROPONIN, HIGH SENSITIVITYon 09-26-2022 HSTROP [...] By: #### C DAVID HSTROPN ####[facility] Hemefhwxyc[address] [place] [address]Dr. Chapisrenu Pulliam XR CHEST 1 Von 09-26-2022 XR CHEST 1 V Normal [facility] XR CHEST 1 Von 09-16-2022 XR CHEST 1 V Normal [facility] CBC AUTO DIFFon 09-15-2022 BASO # 0.0 103/ul Normal 0.0-0.1 [facility] Comment on above: Performed By: #### C BC ####[facility] Mlvlcnfvjh1326 [place] [address]Dr. Garima Heraclio Basophils/100 WBC (Bld) 0.1 % Critically low 0.2-2.0 [facility] Comment on above: Performed By: #### C BC ####[facility] Isqydxkpca5687 [place] [address]Dr. Garima Pulliam EO # 0.0 103/ul Normal 0.0-0.7 [facility] Comment on above: Performed By: #### C BC ####[facility] Morpivopvc1152 [place] [address]Dr. Garima Pulliam Eosinophils/100 WBC (Bld) 0.1 % Critically low 0.9-7.0 [facility] Comment on above: Performed By: #### C BC ####[facility] Nrtizfqczi7820 [place] [address]Dr. Garima Pulliam Erythrocyte distribution width (RBC) [Ratio] 14.1 % Normal 11.0-15.0 [facility] Comment on above: Performed By: #### C BC ####[facility] Trmmtcsegm[address] [place], [place] [address]Dr. Garima Pulliam Hematocrit (Bld) [Volume fraction] 46.1 % Normal 42.0-54.0 [facility] Comment on above: Performed By: #### C BC ####[facility] Tdwksyjfax[address] [place], [place] [address]Dr. Garima Pulliam Hemoglobin (Bld) [Mass/Vol] 15.0 g/dL Normal 14.0-18.0 [facility] Comment on above: Performed By: #### C BC ####[facility] Lxssmfzfrv0[address] [place], [place] [address]Dr. Garima Pulliam IG # 0.03 10e3/ul Normal 0.00-0.03 [facility] Comment on above: Performed By: #### C BC ####[facility] Lkpcmhgjql[address] [place], [place] [address]Dr. Garima Pulliam IG % 0.3 % Normal 0.0-0.5 [facility] Comment on above: Performed By: #### C BC ####[facility] Lagdjyvdmn[address] [place], [place] [address]Dr. Garima Pulliam LYMPH # 0.6 103/ul Critically low 1.2-3.8 [facility] Comment on above: Performed By: #### C BC ####[facility] Kgrotzcdnx[address] [place], [place] [address]Dr. Garima Pulliam Lymphocytes/100 WBC (Bld) 5.8 % Critically low 20.5-60.0 [facility] Comment on above: Performed By: #### C BC ####[facility] Znwrcuhzbu1683 [place] [id number]. Garima Pulliam MANUAL DIFF REQ NO Normal [facility] Comment on above: Performed By: #### C BC ####[facility] Zflebfnlvd80[address] [place] [id number]. Garima Pulliam MCH (RBC) [Entitic mass] 30.2 pg Normal 25.9-34.0 [facility] Comment on above: Performed By: #### C BC ####[facility] Qozugcmbxy[address] [place] [address]Dr. Garima Pulliam MCHC (RBC) [Mass/Vol] 32.5 g/dL Normal 29.9-35.2 [facility] Comment on above: Performed By: #### C BC ####[facility] Xsyrqmtdig64[address] [place] [address]Dr. Garima Pulliam MCV (RBC) [Entitic vol] 92.8 fL Normal 80.0-94.0 [facility] Comment on above: Performed By: #### C BC ####[facility] Kemjluwzsz[address] [place] [address]Dr. Garima Heraclio MONO # 0.3 103/ul Normal 0.3-0.8 [facility] Comment on above: Performed By: #### C BC ####[facility] Zbkjzbbhlq1425 [place] [id number]. Garima Heraclio Monocytes/100 WBC (Bld) 3.2 % Normal 1.7-12.0 [facility] Comment on above: Performed By: #### C BC ####[facility] Olbvuxvalm1873 [place] [id number]. Garima Pulliam NEUT # 9.8 103/ul Critically high 1.4-6.5 [facility] Comment on above: Performed By: #### C BC ####[facility] Mmogrxkkuv4984 [place] [id number]. Garima Pulliam Neutrophils/100 WBC (Bld) 90.5 % Critically high 43.0-75.0 [facility] Comment on above: Performed By: #### C BC ####[facility] Pvjnksdezh4347 [place] [id number]. Garima Pulliam Platelet mean volume (Bld) [Entitic vol] 9.4 fL Critically low 9.5-13.5 [facility] Comment on above: Performed By: #### C BC ####[facility] Uzhbixensl5493 [place] [id number]. Garima Pulliam PLT 208 103/ul Normal 150-450 [facility] Comment on above: Performed By: #### C BC ####[facility] Vjflolskij75[address] [place] [address]Dr. Garima Pulliam RBC 4.97 106/ul Normal 4.70-6.10 [facility] Comment on above: Performed By: #### C BC ####[facility] Eubpsvivjf2[address] [place] [address]Dr. Garima Pulliam WBC 10.8 103/ul Normal 4.0-11.0 [facility] Comment on above: Performed By: #### C BC ####[facility] Tjrqlzxmph18[address] [place] [address]Dr. Garima Pulliam PROF 14(COMP METB)on 022 Albumin [Mass/Vol] 4.0 g/dL Normal 3.4-5.0 [facility] Comment on above: Performed By: #### C MP ####[facility] Hxarfazrih9[address] [place] [address]Dr. Garima Pulliam Albumin/Globulin [Mass ratio] 1.5 {ratio} Normal [facility] Comment on above: Performed By: #### C MP ####[facility] Jvwbgzqgjn4853 [place] [address]Dr. Garima Pulliam ALP [Catalytic activity/Vol] 73 U/L Normal 46-116 [facility] Comment on above: Performed By: #### C MP ####[facility] Llkbrglchm5217 [place] [address]Dr. Garima Pulliam ALT [Catalytic activity/Vol] 42 U/L Normal 16-63 [facility] Comment on above: Performed By: #### C MP ####[facility] Vvcncgxhtd8794 [place] [address]Dr. Garima Pulliam Anion gap [Moles/Vol] 9.1 mmol/L Normal [facility] Comment on above: Performed By: #### C MP ####[facility] Cqoxltvthx96[address] [place], [place] [address]Dr. Garima Pulliam AST [Catalytic activity/Vol] 28 U/L Normal 15-37 [facility] Comment on above: Performed By: #### C MP ####[facility] Wzhwanuzha[address] [place], [place] [address]Dr. Garima Pulliam Bilirubin [Mass/Vol] 0.6 mg/dL Normal 0.2-1.0 [facility] Comment on above: Performed By: #### C MP ####[facility] Ygophhcora23[address] [place], [place] [address]Dr. Garima Pulliam Calcium [Mass/Vol] 8.6 mg/dL Normal 8.5-10.1 [facility] Comment on above: Performed By: #### C MP ####[facility] Tyupjuphwz[address] [place], [place] [address]Dr. Garima Pulliam Chloride [Moles/Vol] 105 mmol/L Normal 98-107 [facility] Comment on above: Performed By: #### C MP ####[facility] Cyuialaifd938[address] [place], [place] [address]Dr. Garima Pulliam CO2 [Moles/Vol] 28.5 mmol/L Normal 21.0-32.0 [facility] Comment on above: Performed By: #### C MP ####[facility] Nlmdrpnlhs06[address] [place], [place] [address]Dr. Garima Heraclio Creatinine [Mass/Vol] 0.78 mg/dL Normal 0.70-1.30 [facility] Comment on above: Performed By: #### C MP ####[facility] Gunigrincp3565[address] [place], [place] [address]Dr. Chapisrenu Heraclio EGFR-AF [facility] LUCIAN >60 Normal >=60 [facility] Comment on above: Performed By: #### C MP ####[facility] Vjdsiifmeh[address] [place], [place] [address]Dr. Garima Pulliam EGFR-NON AF [facility] LUCIAN >60 Normal >=60 [facility] Comment on above: Performed By: #### C MP ####[facility] Wlxbidrynp4439 [place] [address]Dr. Garima Pulliam Globulin (S) [Mass/Vol] 2.7 g/dL Normal [facility] Comment on above: Performed By: #### C MP ####[facility] Jjlzdgycki2967 [place] [address]Dr. Garima Pulliam Glucose [Mass/Vol] 220 mg/dL Critically high 74-106 [facility] Comment on above: Performed By: #### C MP ####[facility] Awfviajihk3565 [place] [address]Dr. Garima Pulliam Potassium [Moles/Vol] 3.6 mmol/L Normal 3.5-5.1 [facility] Comment on above: Performed By: #### C MP ####[facility] Dxthbzrrov05[address] [place], [place] [address]Dr. Garima Pulliam Protein [Mass/Vol] 6.7 g/dL Normal 6.4-8.2 [facility] Comment on above: Performed By: #### C MP ####[facility] Hxzkuyjeua347[address] [place], [place] [address]Dr. Garima Pulliam Sodium [Moles/Vol] 139 mmol/L Normal 136-145 [facility] Comment on above: Performed By: #### C MP ####[facility] Tlcjkkyvnd[address] [place], [place] [address]Dr. Garima Pulliam Urea nitrogen [Mass/Vol] 11.0 mg/dL Normal 7.0-18.0 [facility] Comment on above: Performed By: #### C MP ####[facility] Gmcrapevev5[address] [place], [place] [address]Dr. Garima Pulliam Urea nitrogen/Creatinine [Mass ratio] 14.1 mg/mg Normal [facility] Comment on above: Performed By: #### C MP ####[facility] Uzmcmqqpbv6[address] [place], [place] [address]Dr. Garima Pulliam CARDIAC NASH 3-6on 2 CK [Catalytic activity/Vol] 240 U/L Normal 39-308 [facility] Comment on above: Performed By: #### C MREP ####[facility] Ufwfjjuesv1897 [place] [address]Dr. Garima Pulliam CK.MB [Mass/Vol] 10.38 ng/mL Critically high <=3.60 [facility] Comment on above: Performed By: #### C MREP ####[facility] Zfutkaudji5905 [place] [address]Dr. Garima Pulliam HSTROP 18.5 pg/mL Normal 4.0-76.1 [facility] Comment on above: Result Comment: CUT- OFF POINTS HAVE BEEN ESTABLISHED BASED ON THE FOURTH UNIVERSAL DEFINITIONS OF MYOCARDIALINFARCTION. THE UPPER REFERENCE LIMIT (URL) OF TROPONIN, DEFINED THE 99TH PERCENTILE OFcTnI DISTRIBUTION IN A REFERENCE POPULATION, HAS BEEN CONFIRMED THE DECISION THRESHOLDFOR PR DIAGNOSIS. Performed By: #### C MREP ####[facility] Zabokqtapr5[address] [place] [address]Dr. Garima Pulliam CK [Catalytic activity/Vol] 257 U/L Normal 39-308 [facility] Comment on above: Performed By: #### C MREP ####[facility] Oqwrnkzoze[address] [place], [place] [address]Dr. Garima Pulliam CK.MB [Mass/Vol] 9.89 ng/mL Critically high <=3.60 [facility] Comment on above: Performed By: #### C MREP ####[facility] Hrghrowkzc15[address] [place], [place] [address]Dr. Garima Pulliam HSTROP 16.9 pg/mL Normal 4.0-76.1 [facility] Comment on above: Result Comment: CUT- OFF POINTS HAVE BEEN ESTABLISHED BASED ON THE FOURTH UNIVERSAL DEFINITIONS OF MYOCARDIALINFARCTION. THE UPPER REFERENCE LIMIT (URL) OF TROPONIN, DEFINED THE 99TH PERCENTILE OFcTnI DISTRIBUTION IN A REFERENCE POPULATION, HAS BEEN CONFIRMED THE DECISION THRESHOLDFOR PR DIAGNOSIS. Performed By: #### C MREP ####[facility] Tzuwwuzqpu54[address] [place] [address]Dr. Garima Heraclio CBC AUTO DIFFon 10-22-2022 BASO # 0.0 103/ul Normal 0.0-0.1 [facility] Comment on above: Performed By: #### C BC ####[facility] Jcrzynnsln2920 [place] [id number]. Garima Pulliam Basophils/100 WBC (Bld) 0.1 % Critically low 0.2-2.0 [facility] Comment on above: Performed By: #### C BC ####[facility] Avrnyenidu0[address] [place] [address]Dr. Garima Pulliam EO # 0.0 103/ul Normal 0.0-0.7 [facility] Comment on above: Performed By: #### C BC ####[facility] Fydlshubna[address] [place], [place] [address]Dr. Chapisrenu Heraclio Eosinophils/100 WBC (Bld) 0.0 % Critically low 0.9-7.0 [facility] Comment on above: Performed By: #### C BC ####[facility] Bwomezltsu399[address] [place], [place] [address]Dr. Garima Pulliam Erythrocyte distribution width (RBC) [Ratio] 13.6 % Normal 11.0-15.0 [facility] Comment on above: Performed By: #### C BC ####[facility] Qxstqycuwo0000[address] [place], [place] [address]Dr. Garima Pulliam Hematocrit (Bld) [Volume fraction] 48.2 % Normal 42.0-54.0 [facility] Comment on above: Performed By: #### C BC ####[facility] Gwpnokywvu[address] [place], [place] [address]Dr. Garima Pulliam Hemoglobin (Bld) [Mass/Vol] 16.0 g/dL Normal 14.0-18.0 [facility] Comment on above: Performed By: #### C BC ####[facility] Proufkuiie[address] [place], [place] [address]Dr. Chapisrenu Heraclio IG # 0.02 10e3/ul Normal 0.00-0.03 [facility] Comment on above: Performed By: #### C BC ####[facility] Gqfhemtuev7274 [place] [id number]. Garima Pulliam IG % 0.3 % Normal 0.0-0.5 [facility] Comment on above: Performed By: #### C BC ####[facility] Dzfgvquqig[address] [place] [address]Dr. Garima Heraclio LYMPH # 0.5 103/ul Critically low 1.2-3.8 [facility] Comment on above: Performed By: #### C BC ####[facility] Inldbahzqw8250 [place] [address]Dr. Garima Heraclio Lymphocytes/100 WBC (Bld) 7.7 % Critically low 20.5-60.0 [facility] Comment on above: Performed By: #### C BC ####[facility] Pwmjdbncbd65[address] [place], [place] [address]Dr. Chapisrenu Pulliam MANUAL DIFF REQ NO Normal [facility] Comment on above: Performed By: #### C BC ####[facility] Qhftnfxxyd52[address] [place], [place] [address]Dr. Garima Heraclio MCH (RBC) [Entitic mass] 30.6 pg Normal 25.9-34.0 [facility] Comment on above: Performed By: #### C BC ####[facility] Qzvfkrcqur75[address] [place], [place] [address]Dr. Garima Pulliam MCHC (RBC) [Mass/Vol] 33.2 g/dL Normal 29.9-35.2 [facility] Comment on above: Performed By: #### C BC ####[facility] Mcpweicdvk8[address] [place], [place] [address]Dr. Garima Heraclio MCV (RBC) [Entitic vol] 92.2 fL Normal 80.0-94.0 [facility] Comment on above: Performed By: #### C BC ####[facility] Pmfeuhcmcw[address] [place], [place] [address]Dr. Garima Pulliam MONO # 0.0 103/ul Critically low 0.3-0.8 [facility] Comment on above: Performed By: #### C BC ####[facility] Cowydusyld1849 [place] [id number]. Garima Pulliam Monocytes/100 WBC (Bld) 0.4 % Critically low 1.7-12.0 [facility] Comment on above: Performed By: #### C BC ####[facility] Xguablqcut8492 [place] [address]Dr. Garima Pulliam NEUT # 6.2 103/ul Normal 1.4-6.5 [facility] Comment on above: Performed By: #### C BC ####[facility] Boahxrseiq26[address] [place] [address]Dr. Garima Pulliam Neutrophils/100 WBC (Bld) 91.5 % Critically high 43.0-75.0 [facility] Comment on above: Performed By: #### C BC ####[facility] Xzddobnezv2834 [place] [address]Dr. Garima Pulliam Platelet mean volume (Bld) [Entitic vol] 8.7 fL Critically low 9.5-13.5 [facility] Comment on above: Performed By: #### C BC ####[facility] Dkjwtutake4574 [place] [address]Dr. Garima Pulliam PLT 179 103/ul Normal 150-450 [facility] Comment on above: Performed By: #### C BC ####[facility] Zmrenxzcbb4031 [place] [address]Dr. Garima Pulliam RBC 5.23 106/ul Normal 4.70-6.10 [facility] Comment on above: Performed By: #### C BC ####[facility] Bndflnkpxg6312 [place] [address]Dr. Garima Pulliam WBC 6.7 103/ul Normal 4.0-11.0 [facility] Comment on above: Performed By: #### C BC ####[facility] Czubsyxrsq37[address] [place] [address]Dr. Garima Pulliam PROF CHEM 8 (BAS METB)on Anion gap [Moles/Vol] 12.1 mmol/L Normal [facility] Comment on above: Performed By: #### B MP ####[facility] Zzmttvwuhm0180 [place] [id number]. Garima Pulliam Calcium [Mass/Vol] 8.7 mg/dL Normal 8.5-10.1 [facility] Comment on above: Performed By: #### B MP ####[facility] Wbnpbpihlj2017 [place] [address]Dr. Garima Pulliam Chloride [Moles/Vol] 105 mmol/L Normal 98-107 [facility] Comment on above: Performed By: #### B MP ####[facility] Wxoonnayri0710 [place] [address]Dr. Garima Pulliam CO2 [Moles/Vol] 25.5 mmol/L Normal 21.0-32.0 [facility] Comment on above: Performed By: #### B MP ####[facility] Iwcripjqfh6247 [place] [address]Dr. Garima Pulliam Creatinine [Mass/Vol] 0.63 mg/dL Critically low 0.70-1.30 [facility] Comment on above: Performed By: #### B MP ####[facility] Gokigvrcnq5026 [place] [address]Dr. Garima Pulliam EGFR-AF ST LUCIAN >60 Normal >=60 [facility] Comment on above: Performed By: #### B MP ####[facility] Pqcptyqoqk1430 [place] [address]Dr. Garima Pulliam EGFR-NON AF [facility] LUCIAN >60 Normal >=60 [facility] Comment on above: Performed By: #### B MP ####[facility] Bvfwsohcea4097 [place] [address]Dr. Garima Pulliam Glucose [Mass/Vol] 162 mg/dL Critically high 74-106 [facility] Comment on above: Performed By: #### B MP ####[facility] Qdebhfpubf7[address] [place], [place] [address]Dr. Garima Pulliam Potassium [Moles/Vol] 3.6 mmol/L Normal 3.5-5.1 [facility] Comment on above: Performed By: #### B MP ####[facility] Nizpqvqmtf23[address] [place], [place] [address]Dr. Garima Pulliam Sodium [Moles/Vol] 139 mmol/L Normal 136-145 [facility] Comment on above: Performed By: #### B DAVID ####[facility] Ncfqyrwsfl0824 [place] [address]Dr. Garima Pulliam Urea nitrogen [Mass/Vol] 9.0 mg/dL Normal 7.0-18.0 [facility] Comment on above: Performed By: #### B DAVID ####[facility] Nqrgjmihme2051 [place] [address]Dr. Garima Pulliam Urea nitrogen/Creatinine [Mass ratio] 14.3 mg/mg Normal [facility] Comment on above: Performed By: #### B DAVID ####[facility] Yhrxuokwoj6801 [place] [address]Dr. Chapisrenu Pulliam CARDIAC NASH ADMITon 09-12- 022 CK [Catalytic activity/Vol] 304 U/L Normal 39-308 [facility] Comment on above: Performed By: #### B NANCY HERNANDEZ ####[facility] Hwtiwevxdc0978 [place] [address]Dr. Garima Pulliam CK.MB [Mass/Vol] 11.81 ng/mL Critically high <=3.60 Th [facility] Comment on above: Performed By: #### B NANCY HERNANDEZ ####[facility] Vfxlrsanca4455 [place] [address]Dr. Garima Heraclio HSTROP 13.3 pg/mL Normal 4.0-76.1 [facility] Comment on above: Result Comment: CUT- OFF POINTS HAVE BEEN ESTABLISHED BASED ON THE FOURTH UNIVERSAL DEFINITIONS OF MYOCARDIALINFARCTION. THE UPPER REFERENCE LIMIT (URL) OF TROPONIN, DEFINED THE 99TH PERCENTILE OFcTnI DISTRIBUTION IN A REFERENCE POPULATION, HAS BEEN CONFIRMED THE DECISION THRESHOLDFOR PR DIAGNOSIS. Performed By: #### B NANCY HERNANDEZ ####[facility] Mtijqapelr2526 [place] [address]Dr. Garima Pulliam DORIS 133 ng/mL Critically high 16-96 [facility] Comment on above: Performed By: #### B NANCY HERNANDEZ ####[facility] Nxnkkqhjwe3261 [place] [address]Dr. Garima Pulliam CBC AUTO DIFFon 09-12-2022 BASO # 0.0 103/ul Normal 0.0-0.1 [facility] Comment on above: Performed By: #### C BC ####[facility] Hezmckukba[address] [place], [place] [address]Dr. Garima Heraclio Basophils/100 WBC (Bld) 0.2 % Normal 0.2-2.0 [facility] Comment on above: Performed By: #### C BC ####[facility] Idswwynnat[address] [place], [place] [address]Dr. Garima Heraclio EO # 0.2 103/ul Normal 0.0-0.7 [facility] Comment on above: Performed By: #### C BC ####[facility] Psgndogdsr7[address] [place], [place] [address]Dr. Chapisrenu Pulliam Eosinophils/100 WBC (Bld) 1.3 % Normal 0.9-7.0 [facility] Comment on above: Performed By: #### C BC ####[facility] Ibzxigfktt8340[address] [place], [place] [address]Dr. Garima Pulliam Erythrocyte distribution width (RBC) [Ratio] 13.7 % Normal 11.0-15.0 [facility] Comment on above: Performed By: #### C BC ####[facility] Jiyodveibg[address] [place], [place] [address]Dr. Garima Pulliam Hematocrit (Bld) [Volume fraction] 46.4 % Normal 42.0-54.0 [facility] Comment on above: Performed By: #### C BC ####[facility] Dqivgmsirf[address] [place], [place] [address]Dr. Garima Pulliam Hemoglobin (Bld) [Mass/Vol] 15.7 g/dL Normal 14.0-18.0 [facility] Comment on above: Performed By: #### C BC ####[facility] Gwfmysczfs[address] [place], [place] [address]Dr. Garima Pulliam IG # 0.04 10e3/ul Critically high 0.00-0.03 [facility] Comment on above: Performed By: #### C BC ####[facility] Wcedotncpg6356 [place] [address]Dr. Garima Pulliam IG % 0.3 % Normal 0.0-0.5 [facility] Comment on above: Performed By: #### C BC ####[facility] Gdmiersfob3742 [place] [address]Dr. Garima Pulliam LYMPH # 1.7 103/ul Normal 1.2-3.8 [facility] Comment on above: Performed By: #### C BC ####[facility] Kedvzmnvgm4800 [place] [address]Dr. Garima Pulliam Lymphocytes/100 WBC (Bld) 11.5 % Critically low 20.5-60.0 [facility] Comment on above: Performed By: #### C BC ####[facility] Ntfclqmaip5572 [place] [address]Dr. Garima Pulliam MANUAL DIFF REQ NO Normal [facility] Comment on above: Performed By: #### C BC ####[facility] Uxmgzvnzyo9353 [place] [address]Dr. Garima Pulliam MCH (RBC) [Entitic mass] 31.0 pg Normal 25.9-34.0 [facility] Comment on above: Performed By: #### C BC ####[facility] Gxlzusjblg8646 [place] [address]Dr. Garima Pulliam MCHC (RBC) [Mass/Vol] 33.8 g/dL Normal 29.9-35.2 [facility] Comment on above: Performed By: #### C BC ####[facility] Wiwpazjeaq1980 [place] [address]Dr. Garima Pulliam MCV (RBC) [Entitic vol] 91.7 fL Normal 80.0-94.0 [facility] Comment on above: Performed By: #### C BC ####[facility] Eqwgyyppyq7874 [place] [address]Dr. Garima Heraclio MONO # 0.8 103/ul Normal 0.3-0.8 [facility] Comment on above: Performed By: #### C BC ####[facility] Qfubyjcksr8880 [place] [address]Dr. Garima Pulliam Monocytes/100 WBC (Bld) 5.2 % Normal 1.7-12.0 [facility] Comment on above: Performed By: #### C BC ####[facility] Bqhbokeflr7359 [place] [address]Dr. Garima Pulliam NEUT # 11.7 103/ul Critically high 1.4-6.5 [facility] Comment on above: Performed By: #### C BC ####[facility] Qcjnhvhvcl0120 [place] [address]Dr. Garima Pulliam Neutrophils/100 WBC (Bld) 81.5 % Critically high 43.0-75.0 [facility] Comment on above: Performed By: #### C BC ####[facility] Znrgnuvbgd7554 [place] [address]Dr. Garima Pulliam Platelet mean volume (Bld) [Entitic vol] 8.6 fL Critically low 9.5-13.5 [facility] Comment on above: Performed By: #### C BC ####[facility] Ztyenenrxc1582 [place] [address]Dr. Garima Pulliam PLT 191 103/ul Normal 150-450 [facility] Comment on above: Performed By: #### C BC ####[facility] Dynjcazatb[address] [place], [place] [address]Dr. Garima Pulliam RBC 5.06 106/ul Normal 4.70-6.10 [facility] Comment on above: Performed By: #### C BC ####[facility] Sfxooaqctn[address] [place], [place] [address]Dr. Garima Pulliam WBC 14.4 103/ul Critically high 4.0-11.0 [facility] Comment on above: Performed By: #### C BC ####[facility] Iyhwryoymm[address] [place], [place] [address]Dr. Garima Pulliam Covid-19 PCR ([facility])on 08-24 SARS-CoV-2 (COVID-19) RNA MARIE+probe Ql (Unsp spec) Not detected Normal NOT DETECTED [facility] Comment on above: Result Comment: When [...] for this test is supported by the [employer] Worker of Health and Human Service's declaration [...] Performed By: #### C VDTBH ####[facility] Yzpkaqicfa[address] [place], [place] [address]Dr. Garima Pulliam LACTATE/LACTIC ACIDon 2021 Lactate [Moles/Vol] 1.0 mmol/L Normal 0.4-1.9 [facility] Comment on above: Performed By: #### L ACT ####[facility] Ykbepmswih11[address] [place], [place] [address]Dr. Garima Pulliam PROF CHEM 8 (BAS METB)on Anion gap [Moles/Vol] 11.6 mmol/L Normal [facility] Comment on above: Performed By: #### B NANYC HERNANDEZ ####[facility] Xsawnwhdym1767 [place] [address]Dr. Garima Pulliam Calcium [Mass/Vol] 9.2 mg/dL Normal 8.5-10.1 [facility] Comment on above: Performed By: #### B NANCY HERNANDEZ ####[facility] Ckvvofhkmo3315 [place] [address]Dr. Garima Pulliam Chloride [Moles/Vol] 105 mmol/L Normal 98-107 [facility] Comment on above: Performed By: #### B MP, CMADM ####[facility] Jqrokgtoni1724 [place] [id number]. Garima Pulliam CO2 [Moles/Vol] 25.9 mmol/L Normal 21.0-32.0 [facility] Comment on above: Performed By: #### B DAVID, CMADM ####[facility] Fwipfqmdws5699 [place] [address]Dr. Garima Pulliam Creatinine [Mass/Vol] 0.72 mg/dL Normal 0.70-1.30 [facility] Comment on above: Performed By: #### B DAVID, CMADM ####[facility] Iyrtenimwb0862 [place] [id number]. Garima Pulliam EGFR-AF ST LUCIAN >60 Normal >=60 [facility] Comment on above: Performed By: #### B DAVID, CMADM ####[facility] Tbhbnxgqpp1623 [place] [address]Dr. Chapisrenu Pulliam EGFR-NON AF [facility] LUCIAN >60 Normal >=60 [facility] Comment on above: Performed By: #### B DAVID, CMAANA ROSA ####[facility] Zrdwcovhoc9396 [place] [address]Dr. Garima Pulliam Glucose [Mass/Vol] 111 mg/dL Critically high 74-106 [facility] Comment on above: Performed By: #### B DAVID, CMADM ####[facility] Wmrxjbqpkf2371 [place] [address]Dr. Chapisrenu Pulliam Potassium [Moles/Vol] 3.5 mmol/L Normal 3.5-5.1 [facility] Comment on above: Performed By: #### B DAVID, CMADM ####[facility] Kewxfnpzuk5665 [place] [address]Dr. Chapisrenu Pulliam Sodium [Moles/Vol] 139 mmol/L Normal 136-145 [facility] Comment on above: Performed By: #### B DAVID, CMADM ####[facility] Hquzdkuikm6980 [place] [address]Dr. Garima Pulliam Urea nitrogen [Mass/Vol] 7.0 mg/dL Normal 7.0-18.0 [facility] Comment on above: Performed By: #### B DAVID, CMADM ####[facility] Egcisvsvxc8920 [place], [place] [address]Gd. Garima Pulliam Urea nitrogen/Creatinine [Mass ratio] 9.7 mg/mg Normal [facility] Comment on above: Performed By: #### B MP, CMADM ####[facility] Aiynuhsloh4165 [place], [place] [address]Gh. Garima Pulliam XR CHEST 1 Von 09-12-2022 [...] Facility:[facility] Payers Date Payer Category Payer Unknown [id number] 1960 Medicaid [id number] 1960 Unknown [id number] 1960 Unknown [id number] 1955 Unknown [id number] 2.16.84 0.1.079473.3.579.2.593 1954 Unknown [id number] 2.16.84 0.1.846360.3.579.2.593 1954 Unknown [id number] 2.16.84 0.1.498233.3.579.2.593 1954 Unknown [id number] 2.16.84 0.1.912870.3.579.2.593 1954 Unknown [id number] 2.16.84 0.1.694187.3.579.2.593 1954 Unknown [id number] 2.16.84 0.1.642722.3.579.2.593 1954 Unknown [id number] 2.16.84 0.1.280642.3.579.2.593 1954 Unknown [id number] 2.16.84 0.1.706053.3.579.2.593 1954 Unknown [id number] 2.16.84 0.1.003035.3.579.2.593 1954 Unknown [id number] 2.16.84 0.1.824881.3.579.2.593 1954 Unknown [id number] 2.16.84 0.1.574779.3.579.2.593 1954 Unknown [id number] 2.16.84 0.1.419790.3.579.2.593 1954 Unknown [id number] 2.16.84 0.1.777040.3.579.2.593 1954 Unknown [id number] 2.16.84 0.1.656619.3.579.2.593 1954 Unknown [id number] 2.16.84 0.1.355574.3.579.2.593 1954 Unknown [id number] 2.16.84 0.1.092002.3.579.2.593 1954 Unknown [id number] 2.16.84 0.1.007480.3.579.2.593 1954 Unknown [id number] 2.16.84 0.1.172299.3.579.2.593 1954 Unknown [id number] 2.16.84 0.1.120958.3.579.2.593 1954 Unknown [id number] 2.16.84 0.1.960780.3.579.2.593 Summary Purpose Family History No Family History Records Found Advance Directives No Advanced Directives Records Found Additional Source Comments (unrecognized sect ion and content) No Status Records Found INFORMATION SOURCE (unrecogn ized section and content) DATE CREATED AUTHOR 04/08/2023 [facility] FOR RECORDS PERTAINING TO PATIENTS [...] BE BASED ON THE PRIMARY CLINICAL RECORDS. [facility] [employer] [facility]. provides no warranty or guarantee of the accuracy or completeness of information in this document.
--- NOTE | 2024-11-11 06:03 | CT_ITS ---
The [address] [address] Patient Name: CONSTANZA BARRETO MRN: [id number] date: 1955 Sex: M Assigned Patient Location: ER Current Patient Location: ER Accession/Order Number: [id number] Exam Date: 11/11/2024 07:33 Report Date: 11/11/2024 08:12 At the request of: DEMARCUS GARCIA Procedure: CT abdomen pelvis w con EXAM: CT abdomen pelvis w con HISTORY: Left lower quadrant pain Technique: Following intravenous administration of 75 mL of Omnipaque 350, axial soft tissue windows of the abdomen and pelvis were performed with coronal and sagittal reformats. CT dose reduction technique was used including Automated Exposure Control. Comparison: None FINDINGS: ABDOMEN: There are scattered hepatic low-attenuation lesions, too small to characterize. The gallbladder is unremarkable. Splenic calcifications likely relating to prior granulomatous disease. Extensive pancreatic parenchymal calcifications with pancreatic ductal dilatation likely relates to the sequelae of old trauma. There are multiple stones within the pancreatic duct. Bilateral adrenal nodules measuring 2.4 cm on the right and 4.4 cm on the left. Nonobstructing bilateral renal stones. The largest is within the lower pole of the left kidney measuring 0.5 cm. No right-sided renal collecting system dilatation. There is mild to moderate left-sided collecting system dilatation to the level of the ureterovesicular junction results were obtained 0.6 cm stone. Bilateral renal cysts. Evaluation of the bowel is limited given the absence of oral contrast. There are colonic diverticula. No bowel infarction. The appendix is nondilated. The aorta is normal caliber. Mild atherosclerotic disease. No enlarged abdominal lymph nodes. Small amount of free abdominal fluid. Pelvis: Circumferential bladder wall thickening likely relates to lack of distention. Otherwise the bladder is unremarkable with the exception of the left kidney is a stone. No enlarged pelvic lymph nodes. Small amount of free pelvic fluid. No aggressive sclerotic or lytic osseous lesions. CT/CT abdomen pelvis w con IMPRESSION: 1. Obstructing stone at the left ureterovesicular junction resulting in mild to moderate left-sided collecting system and ureteral dilatation. 2. Nonobstructing bilateral renal stones. 3. Bilateral adrenal nodules. If indicated, these could be further evaluated with adrenal mass protocol CT elevation nonemergent basis. 4. Other nonemergent findings, as described above. Electronically authenticated by: CONSTANZA GRUBBS Date: 11/11/2024 08:12
--- NOTE | 2024-11-11 06:04 | ED_ITS ---
HPI - Abdominal Pain General Chief Complaint: Abdominal Pain Stated Complaint: ABDOMINAL PAIN Time Seen by Provider: 11/11/24 06:00 Source: patient Mode of arrival: Wheelchair Limitations: no limitations History of Present Illness HPI narrative: 6-year-old male presents to the emergency department for abdominal pain. He is complaining of left lower quadrant abdominal pain which began last evening. No constipation or diarrhea or trauma. No fever. No complaints of shortness of breath. He has never had diverticulitis and states he has never had any abdominal surgeries. The pain is moderate and continuous. Related Data Home Medications ?Medication ?Instructions ?Recorded ?Confirmed albuterol sulfate 90 mcg/actuation 2 inh inhalation Q6H PRN shortness 03/13/24 10/02/24 aerosol inhaler of breath or wheezing Previous Rx's ?Medication ?Instructions ?Recorded losartan 100 mg tablet 100 mg PO DAILY #30 tabs 12/27/23 albuterol sulfate 2.5 mg/3 mL 2.5 mg (3 mL) inhalation Q6H PRN 05/26/24 (0.083 %) solution for nebulization shortness of breath or wheezing #90 mL loratadine 10 mg tablet (Claritin) 10 mg PO DAILY #20 tabs 05/30/24 albuterol sulfate 2.5 mg/3 mL 2.5 mg (3 mL) inhalation Q6H PRN 08/07/24 (0.083 %) solution for nebulization shortness of breath or wheezing #90 mL albuterol sulfate 90 mcg/actuation 2 inh inhalation Q4H PRN shortness 08/07/24 aerosol inhaler of breath or wheezing #8.5 grams albuterol sulfate 2.5 mg/3 mL 1.25 mg (1.5 mL) inhalation Q6H 09/04/24 (0.083 %) solution for nebulization PRN bronchospasm #75 mL albuterol sulfate 90 mcg/actuation 2 inh inhalation Q6H PRN shortness 09/04/24 aerosol inhaler of breath or wheezing #6.7 grams albuterol sulfate 2.5 mg/3 mL 2.5 mg (3 mL) inhalation Q6H PRN 09/12/24 (0.083 %) solution for nebulization shortness of breath or wheezing #90 mL prednisone 20 mg tablet See Rx Instructions .Route 09/21/24 .COMPLEX #12 tabs albuterol sulfate 2.5 mg/0.5 mL 2.5 mg (0.5 mL) inhalation Q4H PRN 10/02/24 solution for nebulization shortness of breath or wheezing #30 ea albuterol sulfate 90 mcg/actuation 2 inh inhalation Q4H PRN shortness 10/02/24 aerosol inhaler of breath or wheezing #6.7 grams albuterol sulfate 2.5 mg/3 mL 2.5 mg (3 mL) inhalation Q6H PRN 10/07/24 (0.083 %) solution for nebulization shortness of breath or wheezing #90 mL albuterol sulfate 90 mcg/actuation 2 inh inhalation Q4H PRN shortness 10/07/24 aerosol inhaler of breath or wheezing #8.5 grams Allergies Allergy/AdvReac Type Severity Reaction Status Date / Time No Known Drug Allergies Allergy Verified 11/11/24 05:54 Review of Systems ROS Narrative A ten point review of systems is negative except as noted above. [facility] Medical History (Updated 11/11/24 @ 06:55 by Diego Lilly MD) Hypokalemia ?E87.6 - Hypokalemia (ICD-10) New onset type 2 diabetes mellitus ?E11.9 - Type 2 diabetes mellitus without complications (ICD-10) Lower extremity edema ?R60.0 - Localized edema (ICD-10) Edema ?R60.9 - Edema, unspecified (ICD-10) Acute hyperglycemia ?R73.9 - Hyperglycemia, unspecified (ICD-10) Tobacco abuse ?Z72.0 - Tobacco use (ICD-10) HTN (hypertension) ?I10 - Essential (primary) hypertension (ICD-10) Community acquired pneumonia ?J18.9 - Pneumonia, unspecified organism (ICD-10) Chronic obstructive pulmonary disease ?J44.9 - Chronic obstructive pulmonary disease, unspecified (ICD-10) Acute exacerbation of chronic obstructive pulmonary disease (COPD) ?J44.1 - Chronic obstructive pulmonary disease with (acute) exacerbation (ICD-10) RLL pneumonia ?J18.9 - Pneumonia, unspecified organism (ICD-10) COPD (chronic obstructive pulmonary disease) ?J44.9 - Chronic obstructive pulmonary disease, unspecified (ICD-10) Surgical History (Updated 01/29/24 @ 06:45 by Latonia Martin RN) Hx of tonsillectomy ?Z90.89 - Acquired absence of other organs (ICD-10) Family History (Updated 12/25/23 @ 21:28 by Kym Ordaz) Mother Family history of cancer Family history of hypertension Father Family history of cancer Social History Within the past year, how often did you have a drink containing alcohol: 4 or more times a week Within the past year, how many standard drinks containing alcohol did you have on a typical day: 3 or 4 Within the past year, how often did you have six or more drinks on one occasion: less than monthly Total score: 3 Score interpretation: A score of 4 or more indicates drinking is likely to affect patient's safety. Smoking status: Current every day smoker Non-prescribed substance use: cannabis (any form) Previous occupational history: retired Highest level of school completed/degree received: high school graduate Are you now , , , , never or living with a partner: In a typical week, how many times do you talk on the telephone with family, friends, or neighbors: twice per week How often do you get together with friends or relatives: once per week How often do you attend orthodox or cheondoism services: never Do you belong to any clubs or organizations such as orthodox groups unions, fraternal or athletic groups, or school groups: no Total score: 1 Score interpretation: A score of less than or equal to 1 indicates the most socially isolated. Little interest or pleasure in doing things: not at all Feeling down, depressed, or hopeless: not at all Feel stressed/tense/nervous/anxious/difficulty sleeping: not at all Do you think of yourself as: straight/heterosexual Gender Identity: male Exam Narrative Exam Narrative: Nurses note and vital signs reviewed and patient is not hypoxic. General: The patient appears well and in no apparent distress. Patient is resting comfortably on cart. Skin: Warm, dry, no pallor noted. There is no rash noted. Head: Normocephalic, atraumatic Eye: Normal conjunctiva, no drainage Ears, Nose, Mouth, and Throat: oral mucosa is moist. Nares patent. Cardiovascular: Regular Rate and Rhythm Respiratory: Patient is in no distress, no accessory muscle use, lungs are clear to auscultation, no wheezing, rales or rhonchi Back: non-tender GI: Soft and nondistended. No masses. Tenderness of the left lower quadrant. Musculoskeletal: The patient has no evidence of calf tenderness, no pitting edema, symmetrical pulses noted bilaterally Neurological: A&O, normal speech Psychiatric: Cooperative Constitutional Vital Signs, click to edit/add: Last Vital Signs Temp 98.0 F 11/11/24 05:48 Pulse 62 11/11/24 05:48 Resp 20 11/11/24 05:48 BP 172/98 H 11/11/24 05:48 Pulse Ox 95 11/11/24 06:23 O2 Del Method Room Air 11/11/24 06:23 Course Vital Signs Vital signs: Vital Signs Temperature 98.0 F 11/11/24 05:48 Pulse Rate 62 11/11/24 05:48 Respiratory Rate 20 11/11/24 05:48 Blood Pressure 172/98 H 11/11/24 05:48 Pulse Oximetry 95 11/11/24 05:48 Oxygen Delivery Method Room Air 11/11/24 05:48 Temperature 98.0 F 11/11/24 05:48 Pulse Rate 62 11/11/24 05:48 Respiratory Rate 20 11/11/24 05:48 Blood Pressure 172/98 H 11/11/24 05:48 Pulse Oximetry 95 11/11/24 06:23 Oxygen Delivery Method Room Air 11/11/24 06:23 MDM - Abdominal Pain MDM Narrative Medical decision making narrative: Tests are ordered and the patient is signed out to Dr. Crum at change of shift. Differential Diagnosis Differential diagnosis: Likely abdominal pain, calculus of kidney, constipation, diverticulitis and small bowel obstruction Lab Data Attestation: I reviewed the patient's lab results. Labs: Lab Results 11/11/24 Range/Units 06:16 WBC 12.1 H (4.0-11.0) 10^3/uL RBC 5.15 (4.70-6.10) 10^6/uL Hgb 15.6 (14.0-18.0) g/dL Hct 44.0 (42.0-54.0) % MCV 85.4 (80.0-94.0) fL MCH 30.3 (25.9-34.0) pg MCHC 35.5 H (29.9-35.2) g/dL RDW 12.5 (11.0-15.0) % Plt Count 187 (150-450) 10^3/uL MPV 9.6 (9.5-13.5) fL Neut % (Auto) 78.7 H (43.0-75.0) % Lymph % (Auto) 10.9 L (20.5-60.0) % [place] % (Auto) 9.7 (1.7-12.0) % Eos % (Auto) 0.2 L (0.9-7.0) % Baso % (Auto) 0.2 (0.2-2.0) % Neut # (Auto) 9.5 H (1.4-6.5) 10^3/uL Lymph # (Auto) 1.3 (1.2-3.8) 10^3/uL [place] # (Auto) 1.2 H (0.3-0.8) 10^3/uL Eos # (Auto) 0.0 (0.0-0.7) 10^3/uL Baso # (Auto) 0.0 (0.0-0.1) 10^3/uL Abs Immat Gran (auto) 0.04 H (0.00-0.03) 10^3/uL Imm/Tot Granulo (auto) 0.3 (0.0-0.5) % Discharge Plan Discharge Patient Disposition: Still a Patient
[2024-11-11 06:23] VITALS: O2SAT 95
[2024-11-11] MEDS: ONDANSETRON PF 4 MG/2 ML VIAL IV (06:37)
[2024-11-11 06:43] LABS: Basophils Percent Auto 0.2 % (0.2-2.0); Eosinophils Percent Auto 0.2 % (0.9-7.0); Hemoglobin 15.6 g/dL (14.0-18.0); Immature Granulocytes Abs Auto 0.04 10^3/uL (0.00-0.03); Immature Granulocytes Pct Auto 0.3 % (0.0-0.5); Lymphocytes Absolute Auto 1.3 10^3/uL (1.2-3.8); Lymphocytes Percent Auto 10.9 % (20.5-60.0); Mean Corpuscular HGB Conc 35.5 g/dL (29.9-35.2); Mean Corpuscular Hemoglobin 30.3 pg (25.9-34.0); Mean Corpuscular Volume 85.4 fL (80.0-94.0); Mean Platelet Volume 9.6 fL (9.5-13.5); Monocytes Absolute Auto 1.2 10^3/uL (0.3-0.8); Monocytes Percent Auto 9.7 % (1.7-12.0); Neutrophils Absolute Auto 9.5 10^3/uL (1.4-6.5); Neutrophils Percent Auto 78.7 % (43.0-75.0); Platelet Count 187 10^3/uL (150-450); Red Blood Count 5.15 10^6/uL (4.70-6.10); Red Cell Distribution Width 12.5 % (11.0-15.0); White Blood Count 12.1 10^3/uL (4.0-11.0)
[2024-11-11 06:56] LABS: Anion Gap 12.9; BUN Creatinine Ratio 10.7; Calcium 8.9 mg/dL (8.5-10.1); Carbon Dioxide 29.6 mmol/L (21.0-32.0); Chloride 92 mmol/L (98-107); Estimated GFR (African America 57 (>=60 mL/min/1.73m^2); Estimated GFR (Non-African Ame 47 (>=60 mL/min/1.73m^2); Potassium 3.5 mmol/L (3.5-5.1); Sodium 131 mmol/L (136-145)
[2024-11-11 07:00] LABS: Glucose 512 mg/dL (74-106)
[2024-11-11 07:41] LABS: Bilirubin Urine NEGATIVE (NEGATIVE); Blood Urine SMALL (NEGATIVE); Clarity Urine CLEAR (CLEAR); Color Urine LT. YELLOW (YELLOW); Glucose Urine UA >=1000 mg/dL (NEGATIVE); Ketones Urine NEGATIVE (NEGATIVE); Leukocyte Esterase Urine NEGATIVE (NEGATIVE); Nitrite Urine NEGATIVE (NEGATIVE); Protein Urine NEGATIVE (NEG/TRACE); Urobilinogen Urine 0.2 EU/dL (0.2-1.0)
[2024-11-11 07:47] VITALS: BP 168/84; PULSE 56; O2SAT 93
[2024-11-11 07:53] LABS: Bacteria Urine NONE SEEN #/HPF (NONE SEEN); Cast Seen? NONE SEEN #/LPF (NONE SEEN); Crystals Seen? None Seen #/HPF (None Seen); Mucus Urine NONE SEEN (NONE SEEN); RBC Urine 0-2 #/HPF (0-2); Squamous Epithelial Cell Urine RARE #/LPF (NONE/RARE); WBC Urine 0-2 #/HPF (NONE SEEN)
[2024-11-11 09:53] VITALS: BP 160/90; PULSE 61; O2SAT 94
== END 2024-11-11 12:38 | disposition home or self-care (01) ==
PROVIDERS: Emergency Provider Emergency Medicine
DX: R10.32 Left lower quadrant pain (principal); F17.200 Nicotine dependence, unspecified, uncomplicated
CPT/HCPCS: 36415; 74177; 80048; 81001; 85025; 96374; 99285; J2405; Q9966

== ENCOUNTER 2024-11-12 18:26 | Emergency (ER) | payer MEDICARE, SELFPAY ==
--- OUTSIDE RECORDS SUMMARY | 2024-11-12 18:37 | XMS_ITS | CCD ---
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 Garima Pulliam Basophils/100 WBC (Bld) 0.3 % Normal 0.2-2.0 [facility] Comment on above: Performed By: #### C BC ####[facility] Vsvrnogjdu5182 [place] [address]DrAdalberto Pulliam EO # 0.3 103/ul Normal 0.0-0.7 [facility] Comment on above: Performed By: #### C BC ####[facility] [address] [place], [place] [address]Dr. Garima Pulliam Eosinophils/100 WBC (Bld) 2.8 % Normal 0.9-7.0 [facility] Comment on above: Performed By: #### C BC ####[facility] Vdpvyzjeny6[address] [place] [address]Dr. Garima Pulliam Erythrocyte distribution width (RBC) [Ratio] 13.4 % Normal 11.0-15.0 [facility] Comment on above: Performed By: #### C BC ####[facility] Lhcbqwazlp[address] [place] [address]Dr. Garima Pulliam Hematocrit (Bld) [Volume fraction] 45.7 % Normal 42.0-54.0 [facility] Comment on above: Performed By: #### C BC ####[facility] Ojvoknlyab[address] [place] [address]Dr. Garima Pulliam Hemoglobin (Bld) [Mass/Vol] 15.2 g/dL Normal 14.0-18.0 [facility] Comment on above: Performed By: #### C BC ####[facility] Lemexwwvpb[address] [place] [address]Dr. Garima Pulliam IG # 0.02 10e3/ul Normal 0.00-0.03 [facility] Comment on above: Performed By: #### C BC ####[facility] Uljmaqulcu12[address] [place] [address]Dr. Garima Pulliam IG % 0.2 % Normal 0.0-0.5 [facility] Comment on above: Performed By: #### C BC ####[facility] Efwmzsxgdr04[address] [place] [address]Dr. Garima Pulliam LYMPH # 2.1 103/ul Normal 1.2-3.8 [facility] Comment on above: Performed By: #### C BC ####[facility] Slrrvvqojg[address] [place] [address]Dr. Garima Pulliam Lymphocytes/100 WBC (Bld) 23.7 % Normal 20.5-60.0 [facility] Comment on above: Performed By: #### C BC ####[facility] Blgrzoiagi1738 [place] [address]Dr. Garima Heraclio MANUAL DIFF REQ NO Normal [facility] Comment on above: Performed By: #### C BC ####[facility] Vibqeurzeh[address] [place] [address]Dr. Garima Pulliam MCH (RBC) [Entitic mass] 30.4 pg Normal 25.9-34.0 [facility] Comment on above: Performed By: #### C BC ####[facility] Gcuviaaxlo8[address] [place] [address]Dr. Garima Heraclio MCHC (RBC) [Mass/Vol] 33.3 g/dL Normal 29.9-35.2 [facility] Comment on above: Performed By: #### C BC ####[facility] Efpfivpldu[address] [place], [place] [address]Dr. Chapisrenu Pulliam MCV (RBC) [Entitic vol] 91.4 fL Normal 80.0-94.0 [facility] Comment on above: Performed By: #### C BC ####[facility] Eucwgxcnes[address] [place], [place] [address]Dr. Garima Heraclio MONO # 0.7 103/ul Normal 0.3-0.8 [facility] Comment on above: Performed By: #### C BC ####[facility] Csehjlfznp[address] [place], [place] [address]Dr. Chapisrenu Pulliam Monocytes/100 WBC (Bld) 8.3 % Normal 1.7-12.0 [facility] Comment on above: Performed By: #### C BC ####[facility] Nifwvttolb8[address] [place] [address]Dr. Chapisrenu Heraclio NEUT # 5.8 103/ul Normal 1.4-6.5 [facility] Comment on above: Performed By: #### C BC ####[facility] Shlnztvfpv[address] [place], [place] [address]Dr. Garima Pulliam Neutrophils/100 WBC (Bld) 64.7 % Normal 43.0-75.0 [facility] Comment on above: Performed By: #### C BC ####[facility] Cdgbwcvmnx4049 [place] [address]Dr. Garima Pulliam Platelet mean volume (Bld) [Entitic vol] 8.6 fL Critically low 9.5-13.5 [facility] Comment on above: Performed By: #### C BC ####[facility] Vvgeauvtxz1786 [place] [address]Dr. Garima Pulliam PLT 230 103/ul Normal 150-450 [facility] Comment on above: Performed By: #### C BC ####[facility] Ckczrwnclt4622 [place] [address]Dr. Chapisrenu Heraclio RBC 5.00 106/ul Normal 4.70-6.10 [facility] Comment on above: Performed By: #### C BC ####[facility] Jvzhdqwkmg3921 [place] [address]Dr. Garima Heraclio WBC 9.0 103/ul Normal 4.0-11.0 [facility] Comment on above: Performed By: #### C BC ####[facility] Ienjpofoot0452 [place] [address]Dr. Garima Pulliam MAGNESIUMon 04-04-2023 Magnesium [Mass/Vol] 1.8 mg/dL Normal 1.8-2.4 [facility] Comment on above: Performed By: #### M G ####[facility] Pwrohdvotj1236 [place] [address]Dr. Chapisrenu Pulliam PROF 14(COMP METB)on 023 Albumin [Mass/Vol] 3.8 g/dL Normal 3.4-5.0 [facility] Comment on above: Performed By: #### C MP ####[facility] Rqdajjysqo8226 [place] [address]Dr. Garima Pulliam Albumin/Globulin [Mass ratio] 1.2 {ratio} Normal [facility] Comment on above: Performed By: #### C MP ####[facility] Ozttgpaxjw3724 [place] [address]Dr. Garima Heraclio ALP [Catalytic activity/Vol] 84 U/L Normal 46-116 [facility] Comment on above: Performed By: #### C MP ####[facility] Egjzvusplf0513 [place] [id number]. Garima Pulliam ALT [Catalytic activity/Vol] 31 U/L Normal 16-63 [facility] Comment on above: Performed By: #### C MP ####[facility] Bgbqbhzfqs0103 [place] [address]Dr. Garima Pulliam Anion gap [Moles/Vol] 12.2 mmol/L Normal [facility] Comment on above: Performed By: #### C MP ####[facility] Daniquerzz1852 [place] [address]Dr. Garima Pulliam AST [Catalytic activity/Vol] 23 U/L Normal 15-37 [facility] Comment on above: Performed By: #### C MP ####[facility] Aimwycrrfv[address] [place], [place] [address]Dr. Garima Pulliam Bilirubin [Mass/Vol] 0.5 mg/dL Normal 0.2-1.0 [facility] Comment on above: Performed By: #### C MP ####[facility] Nqcihodvuc[address] [place], [place] [address]Dr. Garima Pulliam Calcium [Mass/Vol] 9.2 mg/dL Normal 8.5-10.1 [facility] Comment on above: Performed By: #### C MP ####[facility] Qomhqhtcrf[address] [place], [place] [address]Dr. Garima Pulliam Chloride [Moles/Vol] 103 mmol/L Normal 98-107 [facility] Comment on above: Performed By: #### C MP ####[facility] Noaxipdyot8375 [place] [address]Dr. Garima Pulliam CO2 [Moles/Vol] 28.5 mmol/L Normal 21.0-32.0 [facility] Comment on above: Performed By: #### C MP ####[facility] Lmpgxuojvd[address] [place], [place] [address]Dr. Garima Pulliam Creatinine [Mass/Vol] 0.74 mg/dL Normal 0.70-1.30 [facility] Comment on above: Performed By: #### C MP ####[facility] Wnnfrrienb0962 [place] [id number]. Garima Pulliam EGFR-AF PORTUGUESE >60 Normal >=60 [facility] Comment on above: Performed By: #### C MP ####[facility] Hkthdjdasn6453 [place] [address]Dr. Garima Heraclio EGFR-NON AF PORTUGUESE >60 Normal >=60 [facility] Comment on above: Performed By: #### C MP ####[facility] Erprylqvss9249 [place] [id number]. Garima Heraclio Globulin (S) [Mass/Vol] 3.1 g/dL Normal [facility] Comment on above: Performed By: #### C MP ####[facility] Ggkzsdaihe[address] [place], [place] [address]Dr. Garima Heraclio Glucose [Mass/Vol] 93 mg/dL Normal 74-106 [facility] Comment on above: Performed By: #### C MP ####[facility] Wwabglmgcr[address] [place], [place] [address]Dr. Garima Heraclio Potassium [Moles/Vol] 3.7 mmol/L Normal 3.5-5.1 [facility] Comment on above: Performed By: #### C MP ####[facility] Gmltwuzqiy[address] [place], [place] [address]Dr. Garima Heraclio Protein [Mass/Vol] 6.9 g/dL Normal 6.4-8.2 [facility] Comment on above: Performed By: #### C MP ####[facility] Hejcbawnus[address] [place], [place] [address]Dr. Garima Heraclio Sodium [Moles/Vol] 140 mmol/L Normal 136-145 [facility] Comment on above: Performed By: #### C MP ####[facility] Rdkblamhfu[address] [place], [place] [address]Dr. Garima Pulliam Urea nitrogen [Mass/Vol] 8.0 mg/dL Normal 7.0-18.0 [facility] Comment on above: Performed By: #### C MP ####[facility] [address]rmzd[address]zj[address] [place], [place] [address]Dr. Garima Pulliam Urea nitrogen/Creatinine [Mass ratio] 10.8 mg/mg Normal [facility] Comment on above: Performed By: #### C DAVID ####[facility] Ikxmxbgzyk4119 [place] [address]Dr. Garima Pulliam AMMONIAon 03-30-2023 Ammonia (P) [Moles/Vol] 11 umol/L Normal 11-32 [facility] Comment on above: Performed By: #### A MM ####[facility] [address]hubwhzl[address] [place], [place] [address]Dr. Garima Pulliam CARDIAC NASH ADMITon 023 CK [Catalytic activity/Vol] 232 U/L Normal 39-308 [facility] Comment on above: Performed By: #### C NANCY HERNANDEZ ####[facility] Lknuadqhmn1862 [place] [address]Dr. Chapisrenu Pulliam CK.MB [Mass/Vol] 4.83 ng/mL Critically high <=3.60 [facility] Comment on above: Performed By: #### C NANCY HERNANDEZ ####[facility] G[address]vgz[address]zm[address] [place], [place] [address]Dr. Garima Pulliam HSTROP 10.5 pg/mL Normal 4.0-76.1 [facility] Comment on above: Result Comment: CUT- OFF POINTS HAVE BEEN ESTABLISHED BASED ON THE FOURTH UNIVERSAL DEFINITIONS OF MYOCARDIALINFARCTION. THE UPPER REFERENCE LIMIT (URL) OF TROPONIN, DEFINED THE 99TH PERCENTILE OFcTnI DISTRIBUTION IN A REFERENCE POPULATION, HAS BEEN CONFIRMED THE DECISION THRESHOLDFOR [place] DIAGNOSIS. Performed By: #### C NANCY HERNANDEZ ####[facility] Tzmxng[address]fm[address] [place], [place] [address]Dr. Garima Heraclio DORIS 79 ng/mL Normal 16-96 [facility] Comment on above: Performed By: #### C ANNCY HERNANDEZ ####[facility] [address]wy[address] [place], [place] [address]Dr. Garima Heraclio CBC AUTO DIFFon 03-30-2023 BASO # 0.0 103/ul Normal 0.0-0.1 [facility] Comment on above: Performed By: #### C BC ####[facility] Wqkpjdtezi9871 [place] [id number]. Garima Pulliam Basophils/100 WBC (Bld) 0.1 % Critically low 0.2-2.0 [facility] Comment on above: Performed By: #### C BC ####[facility] Khliqpqkop8097 [place] [id number]. Garima Pulliam EO # 0.3 103/ul Normal 0.0-0.7 [facility] Comment on above: Performed By: #### C BC ####[facility] [address] [place], [place] [address]Dr. Garima Pulliam Eosinophils/100 WBC (Bld) 3.3 % Normal 0.9-7.0 [facility] Comment on above: Performed By: #### C BC ####[facility] [address]mjh[address] [place], [place] [address]Dr. Garima Pulliam Erythrocyte distribution width (RBC) [Ratio] 13.5 % Normal 11.0-15.0 [facility] Comment on above: Performed By: #### C BC ####[facility] [address] [place], [place] [address]Dr. Garima Pulliam Hematocrit (Bld) [Volume fraction] 42.9 % Normal 42.0-54.0 [facility] Comment on above: Performed By: #### C BC ####[facility] [address] [place], [place] [address]Dr. Garima Pulliam Hemoglobin (Bld) [Mass/Vol] 13.9 g/dL Critically low 14.0-18.0 [facility] Comment on above: Performed By: #### C BC ####[facility] Kownurtvrq6915 [place] [id number]. Garima Pulliam IG # 0.01 10e3/ul Normal 0.00-0.03 [facility] Comment on above: Performed By: #### C BC ####[facility] [address] [place], [place] [address]Dr. Garima Pulliam IG % 0.1 % Normal 0.0-0.5 [facility] Comment on above: Performed By: #### C BC ####[facility] Rhdhijuave1538 [place] [id number]. Garima Pulliam LYMPH # 1.7 103/ul Normal 1.2-3.8 [facility] Comment on above: Performed By: #### C BC ####[facility] Kpokvcvimt6754 [place], [place] [address]Ym. Garima Pulliam Lymphocytes/100 WBC (Bld) 22.8 % Normal 20.5-60.0 [facility] Comment on above: Performed By: #### C BC ####[facility] Cxcqorzgzn4208 [place] [id number]. Garima Heraclio MANUAL DIFF REQ NO Normal [facility] Comment on above: Performed By: #### C BC ####[facility] Vioqcobxxr3693 [place] [id number]. Garima Heraclio MCH (RBC) [Entitic mass] 30.5 pg Normal 25.9-34.0 [facility] Comment on above: Performed By: #### C BC ####[facility] Zwqckufqdr9313 [place] [id number]. Garima Pulliam MCHC (RBC) [Mass/Vol] 32.4 g/dL Normal 29.9-35.2 [facility] Comment on above: Performed By: #### C BC ####[facility] Iqqlxsylrc1637 [place] [id number]. Garima Heraclio MCV (RBC) [Entitic vol] 94.1 fL Critically high 80.0-94.0 [facility] Comment on above: Performed By: #### C BC ####[facility] Jzhpekjevs2063 [place] [id number]. Garima Heraclio MONO # 0.7 103/ul Normal 0.3-0.8 [facility] Comment on above: Performed By: #### C BC ####[facility] Saamwuujmb0898 [place] [address]Dr. Garima Heraclio Monocytes/100 WBC (Bld) 8.6 % Normal 1.7-12.0 [facility] Comment on above: Performed By: #### C BC ####[facility] Jbxcznctaa1283 [place] [id number]. Garima Pulliam NEUT # 4.9 103/ul Normal 1.4-6.5 [facility] Comment on above: Performed By: #### C BC ####[facility] Modtvqmgmj8616 [place] [address]Dr. Garima Pulliam Neutrophils/100 WBC (Bld) 65.1 % Normal 43.0-75.0 [facility] Comment on above: Performed By: #### C BC ####[facility] Bimhtkamqa2868 [place] [id number]. Garima Pulliam Platelet mean volume (Bld) [Entitic vol] 8.5 fL Critically low 9.5-13.5 [facility] Comment on above: Performed By: #### C BC ####[facility] Cqtnztuawk1220 [place] [id number]. Garima Pulliam PLT 219 103/ul Normal 150-450 [facility] Comment on above: Performed By: #### C BC ####[facility] Hwtqhkcntg0067 [place] [id number]. Garima Pulliam RBC 4.56 106/ul Critically low 4.70-6.10 [facility] Comment on above: Performed By: #### C BC ####[facility] Ukvluhaulu2611 [place] [address]Dr. Garima Pulliam WBC 7.6 103/ul Normal 4.0-11.0 [facility] Comment on above: Performed By: #### C BC ####[facility] Cefinhnyrk5486 [place] [id number]. Garima Pulliam LACTATE/LACTIC ACIDon 2022 Lactate [Moles/Vol] 1.2 mmol/L Normal 0.4-2.0 [facility] Comment on above: Performed By: #### L ACT ####[facility] Zbmbuypsma2764 [place] [id number]. Garima Pulliam MAGNESIUMon 03-30-2023 Magnesium [Mass/Vol] 1.8 mg/dL Normal 1.8-2.4 [facility] Comment on above: Performed By: #### M G ####[facility] Wttvfshhfb3491 [place] [address]Dr. Garima Pulliam PROF 14(COMP METB)on 023 Albumin [Mass/Vol] 3.5 g/dL Normal 3.4-5.0 [facility] Comment on above: Performed By: #### C DAVID, CMAANA ROSA ####[facility] Kndhokbmpm4745 [place] [address]Dr. Garima Pulliam Albumin/Globulin [Mass ratio] 1.2 {ratio} Normal [facility] Comment on above: Performed By: #### C DAVID, CMAANA ROSA ####[facility] Ayddprgqwo3530 [place] [address]Dr. Garima Pulliam ALP [Catalytic activity/Vol] 85 U/L Normal 46-116 [facility] Comment on above: Performed By: #### C DAVID, CMAANA ROSA ####[facility] [address]kw[address] [place], [place] [address]Dr. Garima Pulliam ALT [Catalytic activity/Vol] 29 U/L Normal 16-63 [facility] Comment on above: Performed By: #### C DAVID, CMAANA ROSA ####[facility] Zqfjutljxp6793 [place] [address]Dr. Garima Pulliam Anion gap [Moles/Vol] 8.0 mmol/L Normal [facility] Comment on above: Performed By: #### C DAVID, CMAANA ROSA ####[facility] Obygowmqal7533 [place] [address]Dr. Garima Pulliam AST [Catalytic activity/Vol] 18 U/L Normal 15-37 [facility] Comment on above: Performed By: #### C DAVID, CMADM ####[facility] Zikmyalhmw8564 [place] [address]Dr. Garima Pulliam Bilirubin [Mass/Vol] 0.4 mg/dL Normal 0.2-1.0 [facility] Comment on above: Performed By: #### C DAVID, CMADM ####[facility] Pjrwqigqel8597 [place] [address]Dr. Garima Pulliam Calcium [Mass/Vol] 8.8 mg/dL Normal 8.5-10.1 [facility] Comment on above: Performed By: #### C DAVID, NANCY ####[facility] Zjwbcxhoqq7112 [place] [address]Dr. Chapisrenu Pulliam Chloride [Moles/Vol] 108 mmol/L Critically high 98-107 [facility] Comment on above: Performed By: #### C DAVID, NANCY ####[facility] Gtdplajwbz5891 [place] [address]Dr. Garima Pulliam CO2 [Moles/Vol] 29.6 mmol/L Normal 21.0-32.0 [facility] Comment on above: Performed By: #### C NANCY HERNANDEZ ####[facility] [address]zmlsfgq[address] [place], [place] [address]Dr. Garima Pulliam Creatinine [Mass/Vol] 0.77 mg/dL Normal 0.70-1.30 [facility] Comment on above: Performed By: #### C NANCY HERNANDEZ ####[facility] [address]ibhtpcvix[address] [place], [place] [address]Dr. Garima Heraclio EGFR-AF PORTUGUESE >60 Normal >=60 [facility] Comment on above: Performed By: #### C NANCY HERNANDEZ ####[facility] [address]sukhz[address] [place], [place] [address]Dr. Garima Heraclio EGFR-NON AF PORTUGUESE >60 Normal >=60 [facility] Comment on above: Performed By: #### C NANCY HERNANDEZ ####[facility] Rjyfxecrbc5070 [place] [address]Dr. Garima Pulliam Globulin (S) [Mass/Vol] 2.8 g/dL Normal [facility] Comment on above: Performed By: #### C NANCY HERNANDEZ ####[facility] Bxmncwmvij6514 [place] [address]Dr. Garima Pulliam Glucose [Mass/Vol] 207 mg/dL Critically high 74-106 [facility] Comment on above: Performed By: #### C NANCY HERNANDEZ ####[facility] [address]qeztpj[address] [place], [place] [address]Dr. Garima Pulliam Potassium [Moles/Vol] 4.6 mmol/L Normal 3.5-5.1 [facility] Comment on above: Performed By: #### C DAVID, NANCY ####[facility] Uzfxrkwuph7049 [place] [address]Dr. Garima Pulliam Protein [Mass/Vol] 6.3 g/dL Critically low 6.4-8.2 [facility] Comment on above: Performed By: #### C DAVID, NANCY ####[facility] Jswddpeobl4928 [place] [address]Dr. Garima Pulliam Sodium [Moles/Vol] 141 mmol/L Normal 136-145 [facility] Comment on above: Performed By: #### C DAVID, NANCY ####[facility] Xbiuxmoxoz6190 [place] [address]Dr. Garima Pulliam Urea nitrogen [Mass/Vol] 9.0 mg/dL Normal 7.0-18.0 [facility] Comment on above: Performed By: #### C DAVID, NANCY ####[facility] Qwctvewpmj3541 [place] [address]Dr. Garima Pulliam Urea nitrogen/Creatinine [Mass ratio] 11.7 mg/mg Normal [facility] Comment on above: Performed By: #### C DAVID, NANCY ####[facility] Gkwiblewpz7045 [place] [address]Dr. Garima Pulliam XR CHEST 1 Von 03-30-2023 XR CHEST 1 V Normal [facility] BNPon 03-27-2023 Natriuretic peptide B (Bld) [Mass/Vol] 251.0 pg/mL Normal <=900.0 [facility] Comment on above: Performed By: #### C MP, BNP, LIPID ####[facility] Idjjohfhye[address] [place] [address]Dr. Garima Pulliam GLYCOHEMOGLOBIN A1Con 2022 ADA RECOMMENDATION SEE BELOW Normal [facility] Comment on above: Result Comment: ADA RECOMMENDED LIMIT 4.0 - 6.0 ADA THERAPEUTIC TARGET < 7.0 ACTION SUGGESTED > 7.0 Performed By: #### A 1C ####[facility] Nykqfdwzuj8999 [place] [address]Dr. Garima Pulliam Glucose [Mass/Vol] 180 mg/dL Normal [facility] Comment on above: Performed By: #### A 1C ####[facility] [address]thfpnx[address] [place], [place] [address]Dr. Chapisrenu Pulliam HbA1c (Bld) [Mass fraction] 7.9 % Critically high 4.5-6.2 [facility] Comment on above: Performed By: #### A 1C ####[facility] Llkeupiaex[address] [place], [place] [address]Dr. Garima Pulliam HEMOGRAM AND PLATELon 2022 Hematocrit (Bld) [Volume fraction] 45.7 % Normal 42.0-54.0 [facility] Comment on above: Performed By: #### H H ####[facility] Ugatz[address]rro[address] [place], [place] [address]Dr. Garima Pulliam Hemoglobin (Bld) [Mass/Vol] 15.1 g/dL Normal 14.0-18.0 [facility] Comment on above: Performed By: #### H H ####[facility] [address]nwnd[address] [place], [place] [address]Dr. Garima Pulliam MCH (RBC) [Entitic mass] 30.0 pg Normal 25.9-34.0 [facility] Comment on above: Performed By: #### H H ####[facility] [address]suaxzijg[address] [place], [place] [address]Dr. Garima Pulliam MCHC (RBC) [Mass/Vol] 33.0 g/dL Normal 29.9-35.2 [facility] Comment on above: Performed By: #### H H ####[facility] Qzcnzugcnr[address] [place], [place] [address]Dr. Garima Pulliam MCV (RBC) [Entitic vol] 90.7 fL Normal 80.0-94.0 [facility] Comment on above: Performed By: #### H H ####[facility] Qnwzzzaiiy[address] [place], [place] [address]Dr. Garima Pulliam PLT 222 103/ul Normal 150-450 [facility] Comment on above: Performed By: #### H H ####[facility] Bfijdctcpo0544 [place] [id number]. Garima Pulliam RBC 5.04 106/ul Normal 4.70-6.10 [facility] Comment on above: Performed By: #### H H ####[facility] Qhhcjbccbs2136 [place] [id number]. Garima Pulliam WBC 8.7 103/ul Normal 4.0-11.0 [facility] Comment on above: Performed By: #### H H ####[facility] Pigsmhzbyd5577 [place] [id number]. Garima Pulliam LIPID PROFILEon 03-27-2023 CHOL-HDL RATIO NORM SEE BELOW Normal [facility] Comment on above: Result Comment: 3.3 - 4.4 LOW RISK 4.4 - 7.1 AVERAGE RISK 7.1 - 11.0 MODERATE RISK >11.0 HIGH RISK Performed By: #### C MP, BNP, LIPID ####[facility] Ybqsgyrhnq26[address] [place] [address]Dr. Garima Pulliam Cholesterol [Mass/Vol] 113 mg/dL Normal <=200 [facility] Comment on above: Performed By: #### C MP, BNP, LIPID ####[facility] [address]cc[address] [place] [address]Dr. Garima Pulliam Cholesterol in HDL [Mass/Vol] 51 mg/dL Normal 40-60 [facility] Comment on above: Performed By: #### C MP, BNP, LIPID ####[facility] Phpeoxqjdt[address] [place] [address]Dr. Garima Pulliam Cholesterol in LDL [Mass/Vol] 49.8 mg/dL Normal [facility] Comment on above: Performed By: #### C MP, BNP, LIPID ####[facility] Ryhajmvkkh[address] [place] [address]Dr. Garima Pulliam Cholesterol.total/Cho lesterol in HDL [Mass ratio] 2.2 {ratio} Normal [facility] Comment on above: Performed By: #### C MP, BNP, LIPID ####[facility] Erfwdajhcj[address] [place] [address]Dr. Garima Pulliam HDL NORMAL > or = 60 mg/dl - LOW CARDIOVASCULAR RISK <40 mg/dl - HIGH CARDIOVASCULAR RISK Normal [facility] Comment on above: Performed By: #### C MP, BNP, LIPID ####[facility] Mptblswmox[address] [place] [address]Dr. Garima Pulliam LDL CALC NORMAL SEE BELOW Normal [facility] Comment on above: Result Comment: <100 mg/dl OPTIMAL 100 - 129 mg/dl NEAR OR ABOVE OPTIMAL 130 - 159 mg/dl BORDERLINE HIGH 160 - 189 mg/dl HIGH >190 mg/dl VERY HIGH Performed By: #### C MP, BNP, LIPID ####[facility] Yyihroqpcu[address] [place] [address]Dr. Garima Pulliam Triglyceride [Mass/Vol] 61 mg/dL Normal <=150 [facility] Comment on above: Performed By: #### C MP, BNP, LIPID ####[facility] Srgpagiceg34[address] [place] [address]Dr. Garima Pulliam VLDL CALC 12.2 mg/dL Normal [facility] Comment on above: Performed By: #### C MP, BNP, LIPID ####[facility] Nwplmvjpnw9407 [place] [address]Dr. Garima Pulliam PROF 14(COMP METB)on 023 Albumin [Mass/Vol] 3.5 g/dL Normal 3.4-5.0 [facility] Comment on above: Performed By: #### C MP, BNP, LIPID ####[facility] Iiecdrnkzp35[address] [place] [address]Dr. Garima Pulliam Albumin/Globulin [Mass ratio] 1.2 {ratio} Normal [facility] Comment on above: Performed By: #### C MP, BNP, LIPID ####[facility] Nwoqkuknwd[address] [place] [address]Dr. Garima Pulliam ALP [Catalytic activity/Vol] 82 U/L Normal 46-116 [facility] Comment on above: Performed By: #### C MP, BNP, LIPID ####[facility] Takaddsgfv[address] [place] [address]Dr. Garima Pulliam ALT [Catalytic activity/Vol] 33 U/L Normal 16-63 [facility] Comment on above: Performed By: #### C MP, BNP, LIPID ####[facility] Rkhgcenyek79[address] [place] [address]Dr. Garima Pulliam Anion gap [Moles/Vol] 9.9 mmol/L Normal [facility] Comment on above: Performed By: #### C MP, BNP, LIPID ####[facility] Oqgbwqgdab2134 [place] [address]Dr. Garima Pulliam AST [Catalytic activity/Vol] 24 U/L Normal 15-37 [facility] Comment on above: Performed By: #### C MP, BNP, LIPID ####[facility] Clydvijdkh4435 [place] [address]Dr. Garima Pulliam Bilirubin [Mass/Vol] 0.6 mg/dL Normal 0.2-1.0 [facility] Comment on above: Performed By: #### C MP, BNP, LIPID ####[facility] Kpgmvielwq9912 [place] [address]Dr. Garima Pulliam Calcium [Mass/Vol] 9.2 mg/dL Normal 8.5-10.1 [facility] Comment on above: Performed By: #### C MP, BNP, LIPID ####[facility] Lymumioxid6486 [place] [address]Dr. Garima Pulliam Chloride [Moles/Vol] 106 mmol/L Normal 98-107 [facility] Comment on above: Performed By: #### C MP, BNP, LIPID ####[facility] Yrwgprutty6686 [place] [address]Dr. Garima Pulliam CO2 [Moles/Vol] 32.3 mmol/L Critically high 21.0-32.0 [facility] Comment on above: Performed By: #### C MP, BNP, LIPID ####[facility] Tckoawvnhy[address]12 [place] [address]Dr. Garima Pulliam Creatinine [Mass/Vol] 0.70 mg/dL Normal 0.70-1.30 [facility] Comment on above: Performed By: #### C MP, BNP, LIPID ####[facility] Xfdrnaouwg7764 [place] [id number]. Garima Pulliam EGFR-AF PORTUGUESE >60 Normal >=60 [facility] Comment on above: Performed By: #### C MP, BNP, LIPID ####[facility] Pyispnjwec0784 [place] [id number]. Garima Pulliam EGFR-NON AF PORTUGUESE >60 Normal >=60 [facility] Comment on above: Performed By: #### C MP, BNP, LIPID ####[facility] Hnbeckkbmt3224 [place] [address]Dr. Garima Pulliam Globulin (S) [Mass/Vol] 2.9 g/dL Normal [facility] Comment on above: Performed By: #### C MP, BNP, LIPID ####[facility] Kuguldiabb0413 [place] [address]Dr. Garima Pulliam Glucose [Mass/Vol] 111 mg/dL Critically high 74-106 [facility] Comment on above: Performed By: #### C MP, BNP, LIPID ####[facility] Yurtlvalaq6353 [place] [address]Dr. Garima Pulliam Potassium [Moles/Vol] 4.2 mmol/L Normal 3.5-5.1 [facility] Comment on above: Performed By: #### C MP, BNP, LIPID ####[facility] Rxwlyqrdmo3004 [place] [address]Dr. Garima Pulliam Protein [Mass/Vol] 6.4 g/dL Normal 6.4-8.2 [facility] Comment on above: Performed By: #### C MP, BNP, LIPID ####[facility] Mtngtwogyz8842 [place] [address]Dr. Garima Pulliam Sodium [Moles/Vol] 144 mmol/L Normal 136-145 [facility] Comment on above: Performed By: #### C MP, BNP, LIPID ####[facility] Waqullhxng2464 [place] [address]Dr. Garima Pulliam Urea nitrogen [Mass/Vol] 7.0 mg/dL Normal 7.0-18.0 [facility] Comment on above: Performed By: #### C MP, BNP, LIPID ####[facility] [address]ng[address]yt[address] [place], [place] [address]Dr. Garima Pulliam Urea nitrogen/Creatinine [Mass ratio] 10.0 mg/mg Normal [facility] Comment on above: Performed By: #### C MP, BNP, LIPID ####[facility] Ghlskvum[address] [place], [place] [address]Dr. Garima Pulliam BNPon 03-22-2023 Natriuretic peptide B (Bld) [Mass/Vol] 103.0 pg/mL Normal <=900.0 [facility] Comment on above: Performed By: #### B SEAMAN OFFICER, BMP ####[facility] [address] [place], [place] [address]Dr. Garima Pulliam CBC AUTO DIFFon 03-22-2023 BASO # 0.0 103/ul Normal 0.0-0.1 [facility] Comment on above: Performed By: #### C BC ####[facility] Pushgvnpnd[address] [place], [place] [address]Dr. Garima Heraclio Basophils/100 WBC (Bld) 0.3 % Normal 0.2-2.0 [facility] Comment on above: Performed By: #### C BC ####[facility] Hyumagxysx[address] [place], [place] [address]Dr. Garima Pulliam EO # 0.2 103/ul Normal 0.0-0.7 [facility] Comment on above: Performed By: #### C BC ####[facility] Eacaz[address]pyrx[address] [place], [place] [address]Dr. Garima Pulliam Eosinophils/100 WBC (Bld) 2.2 % Normal 0.9-7.0 [facility] Comment on above: Performed By: #### C BC ####[facility] [address]qvlasst[address] [place], [place] [address]Dr. Garima Pulliam Erythrocyte distribution width (RBC) [Ratio] 13.2 % Normal 11.0-15.0 [facility] Comment on above: Performed By: #### C BC ####[facility] Qzqimfbvzq9[address] [place] [id number]. Garima Pulliam Hematocrit (Bld) [Volume fraction] 43.4 % Normal 42.0-54.0 [facility] Comment on above: Performed By: #### C BC ####[facility] Kyiasedbsm1421 [place] [address]Dr. Garima Heraclio Hemoglobin (Bld) [Mass/Vol] 14.3 g/dL Normal 14.0-18.0 [facility] Comment on above: Performed By: #### C BC ####[facility] Onfvhhupfb[address] [place] [address]Dr. Garima Pulliam IG # 0.02 10e3/ul Normal 0.00-0.03 [facility] Comment on above: Performed By: #### C BC ####[facility] Fswdxiaebr5386 [place] [address]Dr. Garima Pulliam IG % 0.3 % Normal 0.0-0.5 [facility] Comment on above: Performed By: #### C BC ####[facility] Mfuuuimbux9025 [place] [address]Dr. Chapisrenu Pulliam LYMPH # 2.0 103/ul Normal 1.2-3.8 [facility] Comment on above: Performed By: #### C BC ####[facility] Liwoolyjfd2420 [place] [address]Dr. Chapisrenu Pulliam Lymphocytes/100 WBC (Bld) 24.8 % Normal 20.5-60.0 [facility] Comment on above: Performed By: #### C BC ####[facility] Sdohneqvqo2409 [place] [address]Dr. Chapisrenu Pulliam MANUAL DIFF REQ NO Normal [facility] Comment on above: Performed By: #### C BC ####[facility] Fshzbemwzw7954 [place] [address]Dr. Garima Heraclio MCH (RBC) [Entitic mass] 30.0 pg Normal 25.9-34.0 [facility] Comment on above: Performed By: #### C BC ####[facility] L[address]zsv[address] [place], [place] [address]Dr. Garima Pulliam MCHC (RBC) [Mass/Vol] 32.9 g/dL Normal 29.9-35.2 [facility] Comment on above: Performed By: #### C BC ####[facility] Mjclbihorx7312 [place] [id number]. Garima Pulliam MCV (RBC) [Entitic vol] 91.0 fL Normal 80.0-94.0 [facility] Comment on above: Performed By: #### C BC ####[facility] Epcurugnwa8987 [place] [id number]. Garima Heraclio MONO # 0.8 103/ul Normal 0.3-0.8 [facility] Comment on above: Performed By: #### C BC ####[facility] Zaukdwlnxv1452 [place] [address]Dr. Chapisrenu Pulliam Monocytes/100 WBC (Bld) 9.7 % Normal 1.7-12.0 [facility] Comment on above: Performed By: #### C BC ####[facility] Vlijdvhedh0747 [place] [address]Dr. Garima Pulliam NEUT # 4.9 103/ul Normal 1.4-6.5 [facility] Comment on above: Performed By: #### C BC ####[facility] Fznfznsmtx0503 [place] [id number]. Garima Heraclio Neutrophils/100 WBC (Bld) 62.7 % Normal 43.0-75.0 [facility] Comment on above: Performed By: #### C BC ####[facility] Evpwyaniwu0718 [place] [id number]. Garima Heraclio Platelet mean volume (Bld) [Entitic vol] 8.8 fL Critically low 9.5-13.5 [facility] Comment on above: Performed By: #### C BC ####[facility] Hixjcbpgbq2653 [place] [id number]. Garima Heraclio PLT 198 103/ul Normal 150-450 [facility] Comment on above: Performed By: #### C BC ####[facility] Jhqdyyiuvo3793 [place] [id number]. Garima Heraclio RBC 4.77 106/ul Normal 4.70-6.10 [facility] Comment on above: Performed By: #### C BC ####[facility] Xjpxrzcrik0386 [place] [id number]. Garima Heraclio WBC 7.9 103/ul Normal 4.0-11.0 [facility] Comment on above: Performed By: #### C BC ####[facility] Ahflmttnsu9171 [place] [id number]. Garima Heraclio D-DIMERon 03-22-2023 D-DIMER 0.85 mg/L FEU Critically high <=0.59 [facility] Comment on above: Performed By: #### D DIM ####[facility] Kwdaxnyrsa8797 [place] [address]Dr. Garima Pulliam D-DIMER COMMENTS SEE BELOW Normal [facility] Comment on above: Result Comment: Incr eases [...] generalized hospitalization. Performed By: #### D DIM ####[facility] V[address] [place], [place] [address]Dr. Garima Pulliam PROF CHEM 8 (BAS METB)on Anion gap [Moles/Vol] 6.9 mmol/L Normal [facility] Comment on above: Performed By: #### B SEAMAN OFFICER, BMP ####[facility] Qtjqldswuv6067 [place] [address]Dr. Garima Pulliam Calcium [Mass/Vol] 8.9 mg/dL Normal 8.5-10.1 [facility] Comment on above: Performed By: #### B SEAMAN OFFICER, BMP ####[facility] Krjruymeul1078 [place] [address]Dr. Garima Pulliam Chloride [Moles/Vol] 101 mmol/L Normal 98-107 [facility] Comment on above: Performed By: #### B SEAMAN OFFICER, BMP ####[facility] Aazwrbmlop[address] [place], [place] [address]Dr. Chapisrenu Heraclio CO2 [Moles/Vol] 30.7 mmol/L Normal 21.0-32.0 [facility] Comment on above: Performed By: #### B SEAMAN OFFICER, BMP ####[facility] [address]qadalchrc[address] [place], [place] [address]Dr. Garima Pulliam Creatinine [Mass/Vol] 0.82 mg/dL Normal 0.70-1.30 [facility] Comment on above: Performed By: #### B SEAMAN OFFICER, BMP ####[facility] Fthfmcxwfr[address] [place], [place] [address]Dr. Garima Pulliam EGFR-AF PORTUGUESE >60 Normal >=60 [facility] Comment on above: Performed By: #### B SEAMAN OFFICER, BMP ####[facility] Qntkhgayvz[address] [place], [place] [address]Dr. Chapisrenu Heraclio EGFR-NON AF PORTUGUESE >60 Normal >=60 [facility] Comment on above: Performed By: #### B SEAMAN OFFICER, BMP ####[facility] Cdfmlsilbm[address] [place], [place] [address]Dr. Garima Pulliam Glucose [Mass/Vol] 339 mg/dL Critically high 74-106 [facility] Comment on above: Performed By: #### B SEAMAN OFFICER, BMP ####[facility] [address]tsoumnsbs[address] [place], [place] [address]Dr. Garima Pulliam Potassium [Moles/Vol] 3.6 mmol/L Normal 3.5-5.1 [facility] Comment on above: Performed By: #### B SEAMAN OFFICER, BMP ####[facility] Sxkmhywlyt[address] [place], [place] [address]Dr. Garima Pulliam Sodium [Moles/Vol] 135 mmol/L Critically low 136-145 [facility] Comment on above: Performed By: #### B SEAMAN OFFICER, BMP ####[facility] Fmztqzmqpm[address] [place], [place] [address]Dr. Garima Pulliam Urea nitrogen [Mass/Vol] 11.0 mg/dL Normal 7.0-18.0 [facility] Comment on above: Performed By: #### B SEAMAN OFFICER, BMP ####[facility] Bhzvvrdghb[address] [place], [place] [address]Dr. Garima Pulliam Urea nitrogen/Creatinine [Mass ratio] 13.4 mg/mg Normal [facility] Comment on above: Performed By: #### B SEAMAN OFFICER, BMP ####[facility] Zlektnptkf[address] [place], [place] [address]Dr. Garima Pulliam US VERONICA DOP LEG BILon 023 US VERONICA DOP LEG BENOIT Normal [facility] BNPon 03-18-2023 Natriuretic peptide B (Bld) [Mass/Vol] 226.0 pg/mL Normal <=900.0 [facility] Comment on above: Performed By: #### B SEAMAN OFFICER, BMP ####[facility] Duddfuyyjz[address] [place], [place] [address]Dr. Garima Pulliam CBC AUTO DIFFon 03-18-2023 BASO # 0.0 103/ul Normal 0.0-0.1 [facility] Comment on above: Performed By: #### C BC ####[facility] Albgfwozwp[address] [place], [place] [address]Dr. Garima Heraclio Basophils/100 WBC (Bld) 0.2 % Normal 0.2-2.0 [facility] Comment on above: Performed By: #### C BC ####[facility] [address]pjhccsxkm[address] [place], [place] [address]Dr. Garima Pulliam EO # 0.3 103/ul Normal 0.0-0.7 [facility] Comment on above: Performed By: #### C BC ####[facility] Gsiknonoqr[address] [place], [place] [address]Dr. Garima Heraclio Eosinophils/100 WBC (Bld) 2.5 % Normal 0.9-7.0 [facility] Comment on above: Performed By: #### C BC ####[facility] Ucziiplfsg[address] [place], [place] [address]Dr. Graima Heraclio Erythrocyte distribution width (RBC) [Ratio] 13.2 % Normal 11.0-15.0 [facility] Comment on above: Performed By: #### C BC ####[facility] Yhfefuqjbu3125 [place] [address]DrAdalberto Pulliam Hematocrit (Bld) [Volume fraction] 45.8 % Normal 42.0-54.0 [facility] Comment on above: Performed By: #### C BC ####[facility] Pjjgvainbe3382 [place] [address]DrAdalberto Pulliam Hemoglobin (Bld) [Mass/Vol] 15.3 g/dL Normal 14.0-18.0 [facility] Comment on above: Performed By: #### C BC ####[facility] [address] [place], [place] [address]DrAdalberto Pulliam IG # 0.02 10e3/ul Normal 0.00-0.03 [facility] Comment on above: Performed By: #### C BC ####[facility] [address]lnxwuytko[address] [place], [place] [address]DrAdalberto Pulliam IG % 0.2 % Normal 0.0-0.5 [facility] Comment on above: Performed By: #### C BC ####[facility] S[address]wecxu[address] [place], [place] [address]DrAdalberto Pulliam LYMPH # 1.8 103/ul Normal 1.2-3.8 [facility] Comment on above: Performed By: #### C BC ####[facility] Hsshpidxkt[address] [place], [place] [address]DrAdalberto Pulliam Lymphocytes/100 WBC (Bld) 18.3 % Critically low 20.5-60.0 [facility] Comment on above: Performed By: #### C BC ####[facility] [address]qticpnja[address] [place], [place] [address]DrAdalberto Pulliam MANUAL DIFF REQ NO Normal [facility] Comment on above: Performed By: #### C BC ####[facility] Hinxfbwpzi2366 [place] [address]DrAdalberto Pulliam MCH (RBC) [Entitic mass] 30.5 pg Normal 25.9-34.0 [facility] Comment on above: Performed By: #### C BC ####[facility] Bowtrehhju3545 [place] [address]DrAdalberto Pulliam MCHC (RBC) [Mass/Vol] 33.4 g/dL Normal 29.9-35.2 [facility] Comment on above: Performed By: #### C BC ####[facility] Majheuzakd9251 [place] [address]DrAdalberto Pulliam MCV (RBC) [Entitic vol] 91.2 fL Normal 80.0-94.0 [facility] Comment on above: Performed By: #### C BC ####[facility] Qvoepfrisk[address] [place], [place] [address]DrAdalberto Pulliam MONO # 0.8 103/ul Normal 0.3-0.8 [facility] Comment on above: Performed By: #### C BC ####[facility] Fwloynltsh[address] [place], [place] [address]DrAdalberto Pulliam Monocytes/100 WBC (Bld) 7.6 % Normal 1.7-12.0 [facility] Comment on above: Performed By: #### C BC ####[facility] Xyli[address]wof[address] [place], [place] [address]DrAdalberto Pulliam NEUT # 7.0 103/ul Critically high 1.4-6.5 [facility] Comment on above: Performed By: #### C BC ####[facility] Mapauvingk[address] [place], [place] [address]DrAdalberto Pulliam Neutrophils/100 WBC (Bld) 71.2 % Normal 43.0-75.0 [facility] Comment on above: Performed By: #### C BC ####[facility] Unevjsagbi[address] [place], [place] [address]DrAdalberto Pulliam Platelet mean volume (Bld) [Entitic vol] 8.9 fL Critically low 9.5-13.5 [facility] Comment on above: Performed By: #### C BC ####[facility] [address]fforhi[address] [place], [place] [address]DrAdalberto Pulliam PLT 217 103/ul Normal 150-450 [facility] Comment on above: Performed By: #### C BC ####[facility] Itutkwayky1649 [place] [address]Dr. Garima Heraclio RBC 5.02 106/ul Normal 4.70-6.10 [facility] Comment on above: Performed By: #### C BC ####[facility] Ypjpgviubw[address] [place], [place] [address]Dr. Garima Pulliam WBC 9.8 103/ul Normal 4.0-11.0 [facility] Comment on above: Performed By: #### C BC ####[facility] Xxzqqfptga[address] [place], [place] [address]Dr. Garima Heraclio CRPon 03-18-2023 CRP 0.1 mg/dL Normal <=1.0 [facility] Comment on above: Performed By: #### C RP ####[facility] [address]sgbpouhi[address] [place], [place] [address]Dr. Garima Heraclio PROF CHEM 8 (BAS METB)on Anion gap [Moles/Vol] 10.4 mmol/L Normal [facility] Comment on above: Performed By: #### B SEAMAN OFFICER, BMP ####[facility] Z[address]vgtnqcaf[address] [place], [place] [address]Dr. Garima Heraclio Calcium [Mass/Vol] 8.8 mg/dL Normal 8.5-10.1 [facility] Comment on above: Performed By: #### B SEAMAN OFFICER, BMP ####[facility] [address]fpmxbuyfu[address] [place], [place] [address]Dr. Garima Heraclio Chloride [Moles/Vol] 97 mmol/L Critically low 98-107 [facility] Comment on above: Performed By: #### B SEAMAN OFFICER, BMP ####[facility] Optxrnfyiz[address] [place], [place] [address]Dr. Garima Pulliam CO2 [Moles/Vol] 31.2 mmol/L Normal 21.0-32.0 [facility] Comment on above: Performed By: #### B SEAMAN OFFICER, BMP ####[facility] Xy[address]zct[address]ju[address] [place], [place] [address]Dr. Garima Pulliam Creatinine [Mass/Vol] 0.91 mg/dL Normal 0.70-1.30 [facility] Comment on above: Performed By: #### B SEAMAN OFFICER, BMP ####[facility] Lgctngyclp7478 [place] [address]Dr. Garima Pulliam EGFR-AF PORTUGUESE >60 Normal >=60 [facility] Comment on above: Performed By: #### B SEAMAN OFFICER, BMP ####[facility] Ksfpzopkiz6460 [place] [id number]. Garima Pulliam EGFR-NON AF PORTUGUESE >60 Normal >=60 [facility] Comment on above: Performed By: #### B SEAMAN OFFICER, BMP ####[facility] Pijgdnwaob6374 [place] [address]Dr. Garima Pulliam Glucose [Mass/Vol] 315 mg/dL Critically high 74-106 T [facility] Comment on above: Performed By: #### B SEAMAN OFFICER, BMP ####[facility] Uqmiiqsopb3593 [place] [address]Dr. Garima Pulliam Potassium [Moles/Vol] 3.6 mmol/L Normal 3.5-5.1 [facility] Comment on above: Performed By: #### B SEAMAN OFFICER, BMP ####[facility] Avtkwqdcoa1512 [place] [address]Dr. Garima Pulliam Sodium [Moles/Vol] 135 mmol/L Critically low 136-145 Th [facility] Comment on above: Performed By: #### B SEAMAN OFFICER, BMP ####[facility] Ceixriikfh7363 [place] [address]Dr. Garima Pulliam Urea nitrogen [Mass/Vol] 7.0 mg/dL Normal 7.0-18.0 [facility] Comment on above: Performed By: #### B SEAMAN OFFICER, BMP ####[facility] Bqmwqkjuhk2341 [place] [address]Dr. Garima Pulliam Urea nitrogen/Creatinine [Mass ratio] 7.7 mg/mg Normal [facility] Comment on above: Performed By: #### B SEAMAN OFFICER, BMP ####[facility] Biscncbqur3783 [place] [address]Dr. Garima Pulliam SED RATE WESTERGRENon 2022 SED RATE 8 mm/hr Normal <=20 [facility] Comment on above: Performed By: #### S EDR ####[facility] [address]jyn[address] [place], [place] [address]Dr. Garima Pulliam BNPon 03-16-2023 Natriuretic peptide B (Bld) [Mass/Vol] 241.0 pg/mL Normal <=900.0 [facility] Comment on above: Performed By: #### B SEAMAN OFFICER, BMP, HSTROPN ####[facility] Naeqezfsks[address] [place], [place] [address]Dr. Garima Heraclio CBC AUTO DIFFon 03-16-2023 BASO # 0.0 103/ul Normal 0.0-0.1 [facility] Comment on above: Performed By: #### C BC ####[facility] [address]wk[address] [place], [place] [address]Dr. Chapisrenu Pulliam Basophils/100 WBC (Bld) 0.2 % Normal 0.2-2.0 [facility] Comment on above: Performed By: #### C BC ####[facility] [address]pt[address]sp[address] [place], [place] [address]Dr. Garima Pulliam EO # 0.2 103/ul Normal 0.0-0.7 [facility] Comment on above: Performed By: #### C BC ####[facility] C[address]qysfn[address] [place], [place] [address]Dr. Chapisrenu Pulliam Eosinophils/100 WBC (Bld) 2.7 % Normal 0.9-7.0 [facility] Comment on above: Performed By: #### C BC ####[facility] [address]qy[address] [place], [place] [address]Dr. Garima Pulliam Erythrocyte distribution width (RBC) [Ratio] 13.1 % Normal 11.0-15.0 [facility] Comment on above: Performed By: #### C BC ####[facility] Tdgeqrjb[address] [place], [place] [address]Dr. Garima Pulliam Hematocrit (Bld) [Volume fraction] 41.8 % Critically low 42.0-54.0 [facility] Comment on above: Performed By: #### C BC ####[facility] Dxyzlfjwei[address] [place] [address]Dr. Garima Pulliam Hemoglobin (Bld) [Mass/Vol] 14.0 g/dL Normal 14.0-18.0 [facility] Comment on above: Performed By: #### C BC ####[facility] Ydjuziqxpr[address] [place] [address]Dr. Garima Pulliam IG # 0.03 10e3/ul Normal 0.00-0.03 [facility] Comment on above: Performed By: #### C BC ####[facility] Uhnnkrnmza2082 [place] [address]Dr. Garima Pulliam IG % 0.3 % Normal 0.0-0.5 [facility] Comment on above: Performed By: #### C BC ####[facility] Gqyywfce[address] [place], [place] [address]Dr. Chapisrenu Pulliam LYMPH # 2.1 103/ul Normal 1.2-3.8 [facility] Comment on above: Performed By: #### C BC ####[facility] Iiivikwz[address] [place], [place] [address]Dr. Chapisrenu Pulliam Lymphocytes/100 WBC (Bld) 24.2 % Normal 20.5-60.0 [facility] Comment on above: Performed By: #### C BC ####[facility] Hfdotptumj[address] [place] [address]Dr. Garima Pulliam MANUAL DIFF REQ NO Normal [facility] Comment on above: Performed By: #### C BC ####[facility] Kbxendajuj69[address] [place] [address]Dr. Garima Pulliam MCH (RBC) [Entitic mass] 30.2 pg Normal 25.9-34.0 [facility] Comment on above: Performed By: #### C BC ####[facility] Gcnijqjlqc4278 [place] [address]Dr. Garima Pulliam MCHC (RBC) [Mass/Vol] 33.5 g/dL Normal 29.9-35.2 [facility] Comment on above: Performed By: #### C BC ####[facility] Skxfjrnlsb3182 [place] [id number]. Garima Pulliam MCV (RBC) [Entitic vol] 90.1 fL Normal 80.0-94.0 [facility] Comment on above: Performed By: #### C BC ####[facility] Cmnfaqreza7849 [place] [id number]. Garima Pulliam MONO # 0.6 103/ul Normal 0.3-0.8 [facility] Comment on above: Performed By: #### C BC ####[facility] Eegtbebzur0507 [place] [address]Dr. Garima Heraclio Monocytes/100 WBC (Bld) 7.4 % Normal 1.7-12.0 [facility] Comment on above: Performed By: #### C BC ####[facility] Vlifptosnr[address] [place], [place] [address]Dr. Garima Pulliam NEUT # 5.6 103/ul Normal 1.4-6.5 [facility] Comment on above: Performed By: #### C BC ####[facility] Doeggbxvmj024[address] [place], [place] [address]Dr. Garima Heraclio Neutrophils/100 WBC (Bld) 65.2 % Normal 43.0-75.0 [facility] Comment on above: Performed By: #### C BC ####[facility] Onhrwuocyz1517 [place] [id number]. Garima Heraclio Platelet mean volume (Bld) [Entitic vol] 8.7 fL Critically low 9.5-13.5 [facility] Comment on above: Performed By: #### C BC ####[facility] [address]jxafus[address] [place], [place] [address]Dr. Garima Heraclio PLT 195 103/ul Normal 150-450 [facility] Comment on above: Performed By: #### C BC ####[facility] Spqrknlozy5658 [place] [id number]. Garima Pulliam RBC 4.64 106/ul Critically low 4.70-6.10 [facility] Comment on above: Performed By: #### C BC ####[facility] Phftfmapte1893 [place] [address]Dr. Garima Pulliam WBC 8.6 103/ul Normal 4.0-11.0 [facility] Comment on above: Performed By: #### C BC ####[facility] Ejvlxceowm6925 [place] [address]Dr. Garima Pulliam PROF CHEM 8 (BAS METB)on Anion gap [Moles/Vol] 6.7 mmol/L Normal [facility] Comment on above: Performed By: #### B SEAMAN OFFICER, BMP, HSTROPN ####[facility] Mumpyneyfs0779 [place] [address]Dr. Garima Pulliam Calcium [Mass/Vol] 8.8 mg/dL Normal 8.5-10.1 [facility] Comment on above: Performed By: #### B SEAMAN OFFICER, BMP, HSTROPN ####[facility] Izywiavkef[address] [place], [place] [address]Dr. Garima Pulliam Chloride [Moles/Vol] 106 mmol/L Normal 98-107 [facility] Comment on above: Performed By: #### B SEAMAN OFFICER, BMP, HSTROPN ####[facility] Gpxxnlliiy[address] [place], [place] [address]Dr. Garima Pulliam CO2 [Moles/Vol] 31.4 mmol/L Normal 21.0-32.0 [facility] Comment on above: Performed By: #### B SEAMAN OFFICER, BMP, HSTROPN ####[facility] Erystfteqp99[address] [place], [place] [address]Dr. Garima Pulliam Creatinine [Mass/Vol] 0.75 mg/dL Normal 0.70-1.30 [facility] Comment on above: Performed By: #### B SEAMAN OFFICER, BMP, HSTROPN ####[facility] Fdedixglkc4592 [place] [address]Dr. Garima Pulliam EGFR-AF PORTUGUESE >60 Normal >=60 [facility] Comment on above: Performed By: #### B SEAMAN OFFICER, BMP, HSTROPN ####[facility] Lxviyataje3972 [place] [address]Dr. Garima Pulliam EGFR-NON AF PORTUGUESE >60 Normal >=60 [facility] Comment on above: Performed By: #### B SEAMAN OFFICER, BMP, HSTROPN ####[facility] Yravnprege2475 [place] [address]Dr. Garima Pulliam Glucose [Mass/Vol] 161 mg/dL Critically high 74-106 [facility] Comment on above: Performed By: #### B SEAMAN OFFICER, BMP, HSTROPN ####[facility] Wyoxfigkyv8212 [place] [address]Dr. Garima Pulliam Potassium [Moles/Vol] 4.1 mmol/L Normal 3.5-5.1 [facility] Comment on above: Performed By: #### B SEAMAN OFFICER, BMP, HSTROPN ####[facility] Izqpcdibym7800 [place] [address]Dr. Garima Pulliam Sodium [Moles/Vol] 140 mmol/L Normal 136-145 [facility] Comment on above: Performed By: #### B SEAMAN OFFICER, BMP, HSTROPN ####[facility] Jafpuvrnqz8659 [place] [address]Dr. Garima Pulliam Urea nitrogen [Mass/Vol] 7.0 mg/dL Normal 7.0-18.0 [facility] Comment on above: Performed By: #### B SEAMAN OFFICER, BMP, HSTROPN ####[facility] Jovinzatzh2614 [place] [address]Dr. Garima Pluliam Urea nitrogen/Creatinine [Mass ratio] 9.3 mg/mg Normal [facility] Comment on above: Performed By: #### B SEAMAN OFFICER, BMP, HSTROPN ####[facility] Hmbtoxwfkz3256 [place] [address]Dr. Garima Pulliam TROPONIN, HIGH SENSITIVITYon 03-16-2023 HSTROP 9.7 pg/mL Normal 4.0-76.1 [facility] Comment on above: Result Comment: CUT- OFF POINTS HAVE BEEN ESTABLISHED BASED ON THE FOURTH UNIVERSAL DEFINITIONS OF MYOCARDIALINFARCTION. THE UPPER REFERENCE LIMIT (URL) OF TROPONIN, DEFINED THE 99TH PERCENTILE OFcTnI DISTRIBUTION IN A REFERENCE POPULATION, HAS BEEN CONFIRMED THE DECISION THRESHOLDFOR W[place] DIAGNOSIS. Performed By: #### B SEAMAN OFFICER, BMP, HSTROPN ####[facility] Dhojhlsewn5562 [place] [address]Dr. Garima Pulliam XR CHEST 1 Von 03-16-2023 XR CHEST 1 V Normal [facility] BNPon 03-06-2023 Natriuretic peptide B (Bld) [Mass/Vol] 111.0 pg/mL Normal <=900.0 [facility] Comment on above: Performed By: #### C MP, BNP, CK ####[facility] Hieofepaym6292 [place] [address]Dr. Chapisrenu Pulliam CBC AUTO DIFFon 03-06-2023 BASO # 0.0 103/ul Normal 0.0-0.1 [facility] Comment on above: Performed By: #### C BC ####[facility] Qofkyuhkus[address] [place], [place] [address]Dr. Garima Pulliam Basophils/100 WBC (Bld) 0.2 % Normal 0.2-2.0 [facility] Comment on above: Performed By: #### C BC ####[facility] [address]zodjfsox[address] [place], [place] [address]Dr. Garima Pulliam EO # 0.3 103/ul Normal 0.0-0.7 [facility] Comment on above: Performed By: #### C BC ####[facility] Nsdzbzsxez[address] [place], [place] [address]Dr. Garima Pulliam Eosinophils/100 WBC (Bld) 3.5 % Normal 0.9-7.0 [facility] Comment on above: Performed By: #### C BC ####[facility] Wwkhluxppc[address] [place], [place] [address]Dr. Garima Pulliam Erythrocyte distribution width (RBC) [Ratio] 13.3 % Normal 11.0-15.0 [facility] Comment on above: Performed By: #### C BC ####[facility] Rpcbamlsuw[address] [place], [place] [address]Dr. Garima Pulliam Hematocrit (Bld) [Volume fraction] 43.7 % Normal 42.0-54.0 [facility] Comment on above: Performed By: #### C BC ####[facility] Taedrfcisf7903 [place] [address]Dr. Garima Pulliam Hemoglobin (Bld) [Mass/Vol] 14.7 g/dL Normal 14.0-18.0 [facility] Comment on above: Performed By: #### C BC ####[facility] Irglylzoir8802 [place] [address]Dr. Chapisrenu Heraclio IG # 0.03 10e3/ul Normal 0.00-0.03 [facility] Comment on above: Performed By: #### C BC ####[facility] Qjostymddx[address] [place], [place] [address]Dr. Garima Pulliam IG % 0.4 % Normal 0.0-0.5 [facility] Comment on above: Performed By: #### C BC ####[facility] Lbqfwlosml[address] [place], [place] [address]Dr. Garima Pulliam LYMPH # 2.0 103/ul Normal 1.2-3.8 [facility] Comment on above: Performed By: #### C BC ####[facility] Vpxpwelmsr[address] [place], [place] [address]DrAdalberto Pulliam Lymphocytes/100 WBC (Bld) 23.7 % Normal 20.5-60.0 [facility] Comment on above: Performed By: #### C BC ####[facility] Bnsinwhwkq4159 [place] [address]Dr. Garima Pulliam MANUAL DIFF REQ NO Normal [facility] Comment on above: Performed By: #### C BC ####[facility] Fuxvqrxnrg8873 [place] [id number] Pulliam MCH (RBC) [Entitic mass] 30.1 pg Normal 25.9-34.0 [facility] Comment on above: Performed By: #### C BC ####[facility] Eilygzccbu7989 [place] [id number]. Garima Pulliam MCHC (RBC) [Mass/Vol] 33.6 g/dL Normal 29.9-35.2 [facility] Comment on above: Performed By: #### C BC ####[facility] Qfcxivkoxp9902 [place] [address]Dr. Garima Heraclio MCV (RBC) [Entitic vol] 89.4 fL Normal 80.0-94.0 [facility] Comment on above: Performed By: #### C BC ####[facility] Ipyuglwzzf3584 [place] [address]Dr. Garima Pulliam MONO # 0.8 103/ul Normal 0.3-0.8 [facility] Comment on above: Performed By: #### C BC ####[facility] Yejpxvppjo8719 [place] [address]Dr. Garima Pulliam Monocytes/100 WBC (Bld) 9.0 % Normal 1.7-12.0 [facility] Comment on above: Performed By: #### C BC ####[facility] [address]qhgnrthir[address] [place], [place] [address]Dr. Garima Pulliam NEUT # 5.4 103/ul Normal 1.4-6.5 [facility] Comment on above: Performed By: #### C BC ####[facility] Esqefhenos[address] [place], [place] [address]Dr. Garima Pulliam Neutrophils/100 WBC (Bld) 63.2 % Normal 43.0-75.0 [facility] Comment on above: Performed By: #### C BC ####[facility] Slmadbhuwj[address] [place], [place] [address]Dr. Garima Pulliam Platelet mean volume (Bld) [Entitic vol] 9.0 fL Critically low 9.5-13.5 [facility] Comment on above: Performed By: #### C BC ####[facility] Mqrychojei[address] [place], [place] [address]Dr. Garima Pulliam PLT 218 103/ul Normal 150-450 [facility] Comment on above: Performed By: #### C BC ####[facility] Nadyaqxqwm9746 [place] [id number]. Garima Pulliam RBC 4.89 106/ul Normal 4.70-6.10 [facility] Comment on above: Performed By: #### C BC ####[facility] Wpxsldbmmu5618 [place] [address]Dr. Garima Pulliam WBC 8.5 103/ul Normal 4.0-11.0 [facility] Comment on above: Performed By: #### C BC ####[facility] Mewnocuevf8698 [place] [address]Dr. Garima Pulliam CPKon 03-06-2023 CK [Catalytic activity/Vol] 191 U/L Normal 39-308 [facility] Comment on above: Performed By: #### C MP, BNP, CK ####[facility] Qjfbmunzfn3779 [place] [address]Dr. Garima Pulliam PROF 14(COMP METB)on 023 Albumin [Mass/Vol] 3.6 g/dL Normal 3.4-5.0 [facility] Comment on above: Performed By: #### C MP, BNP, CK ####[facility] Vcrsfcrnsv4014 [place] [address]Dr. Garima Pulliam Albumin/Globulin [Mass ratio] 1.2 {ratio} Normal [facility] Comment on above: Performed By: #### C MP, BNP, CK ####[facility] Lcxiazthkw9089 [place] [address]Dr. Garima Pulliam ALP [Catalytic activity/Vol] 91 U/L Normal 46-116 [facility] Comment on above: Performed By: #### C MP, BNP, CK ####[facility] Vplqetdgls4221 [place] [address]Dr. Garima Pulliam ALT [Catalytic activity/Vol] 33 U/L Normal 16-63 [facility] Comment on above: Performed By: #### C MP, BNP, CK ####[facility] Jsecmntqot0322 [place] [address]Dr. Garima Pulliam Anion gap [Moles/Vol] 10.3 mmol/L Normal [facility] Comment on above: Performed By: #### C MP, BNP, CK ####[facility] Wqrdlrfstw7349 [place] [address]Dr. Garima Pulliam AST [Catalytic activity/Vol] 17 U/L Normal 15-37 [facility] Comment on above: Performed By: #### C MP, BNP, CK ####[facility] Ailpmjtxzg1557 [place] [address]Dr. Garima Pulliam Bilirubin [Mass/Vol] 0.4 mg/dL Normal 0.2-1.0 [facility] Comment on above: Performed By: #### C MP, BNP, CK ####[facility] Ppwxlqbiqd9278 [place] [address]Dr. Garima Pulliam Calcium [Mass/Vol] 9.1 mg/dL Normal 8.5-10.1 [facility] Comment on above: Performed By: #### C MP, BNP, CK ####[facility] Ytkvkwqfes8638 [place] [address]Dr. Garima Pulliam Chloride [Moles/Vol] 102 mmol/L Normal 98-107 [facility] Comment on above: Performed By: #### C MP, BNP, CK ####[facility] Brsekhhhzd3053 [place] [address]Dr. Garima Pulliam CO2 [Moles/Vol] 29.7 mmol/L Normal 21.0-32.0 [facility] Comment on above: Performed By: #### C MP, BNP, CK ####[facility] Ahuelmpexh5952 [place] [address]Dr. Garima Pulliam Creatinine [Mass/Vol] 0.79 mg/dL Normal 0.70-1.30 [facility] Comment on above: Performed By: #### C MP, BNP, CK ####[facility] Uchygyoeyr4163 [place] [address]Dr. Garima Pulliam EGFR-AF PORTUGUESE >60 Normal >=60 [facility] Comment on above: Performed By: #### C MP, BNP, CK ####[facility] Wfoktfzwiq8865 [place] [address]Dr. Garima Pulliam EGFR-NON AF PORTUGUESE >60 Normal >=60 [facility] Comment on above: Performed By: #### C MP, BNP, CK ####[facility] Wqpbgcvwpr1668 [place] [address]Dr. Garima Pulliam Globulin (S) [Mass/Vol] 3.0 g/dL Normal [facility] Comment on above: Performed By: #### C MP, BNP, CK ####[facility] Hsnzwepgfs1659 [place] [address]Dr. Garima Pulliam Glucose [Mass/Vol] 202 mg/dL Critically high 74-106 [facility] Comment on above: Performed By: #### C MP, BNP, CK ####[facility] Hswfptsiqa3827 [place] [address]Dr. Garima Pulliam Potassium [Moles/Vol] 4.0 mmol/L Normal 3.5-5.1 [facility] Comment on above: Performed By: #### C MP, BNP, CK ####[facility] Jpnmhahrru6921 [place] [address]Dr. Garima Pulliam Protein [Mass/Vol] 6.6 g/dL Normal 6.4-8.2 [facility] Comment on above: Performed By: #### C MP, BNP, CK ####[facility] [address]dc[address]xdgs[address] [place], [place] [address]Dr. Garima Pulliam Sodium [Moles/Vol] 138 mmol/L Normal 136-145 [facility] Comment on above: Performed By: #### C MP, BNP, CK ####[facility] [address]azkkwvv[address] [place], [place] [address]Dr. Garima Pulliam Urea nitrogen [Mass/Vol] 10.0 mg/dL Normal 7.0-18.0 [facility] Comment on above: Performed By: #### C MP, BNP, CK ####[facility] Hmtpmvvsnj4112 [place] [address]Dr. Garima Pulliam Urea nitrogen/Creatinine [Mass ratio] 12.7 mg/mg Normal [facility] Comment on above: Performed By: #### C MP, BNP, CK ####[facility] Elyvsqxniq5065 [place] [address]Dr. Garima Pulliam US VERONICA DOP LEG BILon 023 US VERONICA DOP LEG BENOIT Normal [facility] CBC AUTO DIFFon 01-13-2023 BASO # 0.0 103/ul Normal 0.0-0.1 [facility] Comment on above: Performed By: #### C BC ####[facility] Lefdaxsksa1293 [place] [id number]. Chapisrenu Pulliam Basophils/100 WBC (Bld) 0.0 % Critically low 0.2-2.0 [facility] Comment on above: Performed By: #### C BC ####[facility] Ucjzfevojz8397 [place] [address]Dr. Garima Pulliam EO # 0.0 103/ul Normal 0.0-0.7 [facility] Comment on above: Performed By: #### C BC ####[facility] Cvhnjjenih[address] [place], [place] [address]Dr. Garima Pulliam Eosinophils/100 WBC (Bld) 0.0 % Critically low 0.9-7.0 [facility] Comment on above: Performed By: #### C BC ####[facility] Pysexevrcr3922 [place] [address]Dr. Garima Pulliam Erythrocyte distribution width (RBC) [Ratio] 13.2 % Normal 11.0-15.0 [facility] Comment on above: Performed By: #### C BC ####[facility] Icogjcgcop[address] [place], [place] [address]Dr. Garima Pulliam Hematocrit (Bld) [Volume fraction] 46.7 % Normal 42.0-54.0 [facility] Comment on above: Performed By: #### C BC ####[facility] [address]zdcssgbrx[address] [place], [place] [address]Dr. Garima Pulliam Hemoglobin (Bld) [Mass/Vol] 15.6 g/dL Normal 14.0-18.0 [facility] Comment on above: Performed By: #### C BC ####[facility] Jijihexmoh[address] [place], [place] [address]Dr. Garima Pulliam IG # 0.01 10e3/ul Normal 0.00-0.03 [facility] Comment on above: Performed By: #### C BC ####[facility] Gkpzdyfhhz9000 [place] [id number]. Garima Pulliam IG % 0.2 % Normal 0.0-0.5 [facility] Comment on above: Performed By: #### C BC ####[facility] Aaagjxizyv5336 [place] [id number]. Garima Pulliam LYMPH # 0.8 103/ul Critically low 1.2-3.8 [facility] Comment on above: Performed By: #### C BC ####[facility] Rrnkpkrbee7450 [place] [id number]. Garima Pulliam Lymphocytes/100 WBC (Bld) 12.7 % Critically low 20.5-60.0 [facility] Comment on above: Performed By: #### C BC ####[facility] Qrtbuxtffq1437 [place] [address]Dr. Garima Pulliam MANUAL DIFF REQ NO Normal [facility] Comment on above: Performed By: #### C BC ####[facility] Jhrckuaxzx0379 [place] [id number]. Garima Pulliam MCH (RBC) [Entitic mass] 30.2 pg Normal 25.9-34.0 [facility] Comment on above: Performed By: #### C BC ####[facility] Rqvcfjlfxz0931 [place] [address]Dr. Garima Pulliam MCHC (RBC) [Mass/Vol] 33.4 g/dL Normal 29.9-35.2 [facility] Comment on above: Performed By: #### C BC ####[facility] Wgwssnuzfl4615 [place] [id number]. Garima Pulliam MCV (RBC) [Entitic vol] 90.3 fL Normal 80.0-94.0 [facility] Comment on above: Performed By: #### C BC ####[facility] Nwtdrprudx8550 [place] [id number]. Garima Heraclio MONO # 0.1 103/ul Critically low 0.3-0.8 [facility] Comment on above: Performed By: #### C BC ####[facility] Fapktmpehf3990 [place] [address]Dr. Garima Pulliam Monocytes/100 WBC (Bld) 0.9 % Critically low 1.7-12.0 [facility] Comment on above: Performed By: #### C BC ####[facility] Zbyuqrctgk3105 [place] [id number]. Garima Pulliam NEUT # 5.6 103/ul Normal 1.4-6.5 [facility] Comment on above: Performed By: #### C BC ####[facility] Kcgvkwayjk9800 [place] [id number]. Garima Pulliam Neutrophils/100 WBC (Bld) 86.2 % Critically high 43.0-75.0 [facility] Comment on above: Performed By: #### C BC ####[facility] Wixdvhnqet7573 [place] [address]Dr. Garima Pulliam Platelet mean volume (Bld) [Entitic vol] 9.1 fL Critically low 9.5-13.5 [facility] Comment on above: Performed By: #### C BC ####[facility] Rknzordxes[address] [place], [place] [address]Dr. Garima Pulliam PLT 169 103/ul Normal 150-450 [facility] Comment on above: Performed By: #### C BC ####[facility] Eyofasoags[address] [place], [place] [address]Dr. Garima Pulliam RBC 5.17 106/ul Normal 4.70-6.10 [facility] Comment on above: Performed By: #### C BC ####[facility] Jfszhlcmvo[address] [place], [place] [address]Dr. Garima Pulliam WBC 6.5 103/ul Normal 4.0-11.0 [facility] Comment on above: Performed By: #### C BC ####[facility] [address]vbpkempf[address] [place], [place] [address]Dr. Garima Pulliam D-DIMERon 01-13-2023 D-DIMER 0.41 mg/L FEU Normal <=0.59 [facility] Comment on above: Performed By: #### D DIM ####[facility] Hvkfewogvy1091 [place] [address]Dr. Garima Pulliam D-DIMER COMMENTS SEE BELOW Normal [facility] Comment on above: Result Comment: Incr [...] generalized hospitalization. Performed By: #### D DIM ####[facility] [address]kkygzbajr[address] [place], [place] [address]Dr. Garima Pulliam PROF 14(COMP METB)on 023 Albumin [Mass/Vol] 3.4 g/dL Normal 3.4-5.0 [facility] Comment on above: Performed By: #### C MP ####[facility] Hmzokxptdu[address] [place], [place] [address]Dr. Garima Pulliam Albumin/Globulin [Mass ratio] 1.3 {ratio} Normal [facility] Comment on above: Performed By: #### C MP ####[facility] Kswwpqqnpa[address] [place], [place] [address]Dr. Garima Pulliam ALP [Catalytic activity/Vol] 83 U/L Normal 46-116 [facility] Comment on above: Performed By: #### C MP ####[facility] Ggzvmwfaqz[address] [place], [place] [address]Dr. Garima Pulliam ALT [Catalytic activity/Vol] 25 U/L Normal 16-63 [facility] Comment on above: Performed By: #### C MP ####[facility] Hzzsibyrtk6513 [place] [address]Dr. Garima Pulliam Anion gap [Moles/Vol] 14.5 mmol/L Normal [facility] Comment on above: Performed By: #### C MP ####[facility] Ktwtyjqhql[address] [place], [place] [address]Dr. Garima Pulliam AST [Catalytic activity/Vol] 19 U/L Normal 15-37 [facility] Comment on above: Performed By: #### C MP ####[facility] [address]kifkvmd[address] [place], [place] [address]Dr. Garima Pulliam Bilirubin [Mass/Vol] 0.4 mg/dL Normal 0.2-1.0 [facility] Comment on above: Performed By: #### C MP ####[facility] Knwriprzus[address] [place], [place] [address]Dr. Garima Pulliam Calcium [Mass/Vol] 8.7 mg/dL Normal 8.5-10.1 [facility] Comment on above: Performed By: #### C MP ####[facility] Hufijucwua465471 [address] [place], [place] [address]Dr. Garima Pulliam Chloride [Moles/Vol] 104 mmol/L Normal 98-107 [facility] Comment on above: Performed By: #### C MP ####[facility] Oruyzkbsbw[address] [place], [place] [address]Dr. Garima Pulliam CO2 [Moles/Vol] 24.5 mmol/L Normal 21.0-32.0 [facility] Comment on above: Performed By: #### C MP ####[facility] Giagfzwkxy[address] [place], [place] [address]Dr. Garima Pulliam Creatinine [Mass/Vol] 0.70 mg/dL Normal 0.70-1.30 [facility] Comment on above: Performed By: #### C MP ####[facility] Qlwboptdjp[address] [place], [place] [address]Dr. Garima Heraclio EGFR-AF PORTUGUESE >60 Normal >=60 [facility] Comment on above: Performed By: #### C MP ####[facility] Lvcjpwbtso[address] [place], [place] [address]Dr. Chapisrenu Heraclio EGFR-NON AF PORTUGUESE >60 Normal >=60 [facility] Comment on above: Performed By: #### C MP ####[facility] Dmpfwohkky[address] [place], [place] [address]Dr. Chapisrenu Pulliam Globulin (S) [Mass/Vol] 2.6 g/dL Normal [facility] Comment on above: Performed By: #### C MP ####[facility] [address]zdikrjoci[address] [place] [address]Dr. Garima Pulliam Glucose [Mass/Vol] 196 mg/dL Critically high 74-106 [facility] Comment on above: Performed By: #### C MP ####[facility] Eumffdaxxw[address] [place] [address]Dr. Garima Pulliam Potassium [Moles/Vol] 4.0 mmol/L Normal 3.5-5.1 [facility] Comment on above: Performed By: #### C MP ####[facility] Citngksmqi[address] [place] [address]Dr. Garima Pulliam Protein [Mass/Vol] 6.0 g/dL Critically low 6.4-8.2 [facility] Comment on above: Performed By: #### C MP ####[facility] Lhgcjpbumi[address] [place], [place] [address]Dr. Garima Pulliam Sodium [Moles/Vol] 139 mmol/L Normal 136-145 [facility] Comment on above: Performed By: #### C MP ####[facility] Oyvdwkrvni[address] [place], [place] [address]Dr. Garima Pulliam Urea nitrogen [Mass/Vol] 7.0 mg/dL Normal 7.0-18.0 [facility] Comment on above: Performed By: #### C MP ####[facility] Lamruhbcpz[address] [place], [place] [address]Dr. Garima Heraclio Urea nitrogen/Creatinine [Mass ratio] 10.0 mg/mg Normal [facility] Comment on above: Performed By: #### C MP ####[facility] Mkbvvytyns[address] [place], [place] [address]Dr. Garima Heraclio BNPon 01-12-2023 Natriuretic peptide B (Bld) [Mass/Vol] 141.0 pg/mL Normal <=900.0 [facility] Comment on above: Performed By: #### C MP, BNP, HSTROPN ####[facility] Ylxanmtquz9[address] [place], [place] [address]Dr. Garima Heraclio CBC AUTO DIFFon 01-12-2023 BASO # 0.0 103/ul Normal 0.0-0.1 [facility] Comment on above: Performed By: #### C BC ####[facility] Rixcgdeudc[address] [place] [id number]. Garima Heraclio Basophils/100 WBC (Bld) 0.2 % Normal 0.2-2.0 [facility] Comment on above: Performed By: #### C BC ####[facility] Dnjmauvfzg2339 [place] [address]Dr. Garima Heraclio EO # 0.2 103/ul Normal 0.0-0.7 [facility] Comment on above: Performed By: #### C BC ####[facility] Twftiefobc4[address] [place] [address]Dr. Garima Heraclio Eosinophils/100 WBC (Bld) 2.7 % Normal 0.9-7.0 [facility] Comment on above: Performed By: #### C BC ####[facility] Jotjedtgjv[address] [place], [place] [address]Dr. Garima Pulliam Erythrocyte distribution width (RBC) [Ratio] 13.3 % Normal 11.0-15.0 [facility] Comment on above: Performed By: #### C BC ####[facility] Dbvwhwxdqt638[address] [place], [place] [address]Dr. Garima Pulliam Hematocrit (Bld) [Volume fraction] 42.3 % Normal 42.0-54.0 [facility] Comment on above: Performed By: #### C BC ####[facility] Azwfkgxahl[address] [place], [place] [address]Dr. Garima Pulliam Hemoglobin (Bld) [Mass/Vol] 14.3 g/dL Normal 14.0-18.0 [facility] Comment on above: Performed By: #### C BC ####[facility] Muarkpsoer[address] [place], [place] [address]Dr. Garima Pulliam IG # 0.02 10e3/ul Normal 0.00-0.03 [facility] Comment on above: Performed By: #### C BC ####[facility] Ngzjmutwqk2274 [place] [id number]. Garima Pulliam IG % 0.2 % Normal 0.0-0.5 [facility] Comment on above: Performed By: #### C BC ####[facility] Emtuceprsp[address]84 [place] [id number]. Garima Pulliam LYMPH # 2.6 103/ul Normal 1.2-3.8 [facility] Comment on above: Performed By: #### C BC ####[facility] Sxysnncoex7895 [place] [id number]. Garima Heraclio Lymphocytes/100 WBC (Bld) 29.6 % Normal 20.5-60.0 [facility] Comment on above: Performed By: #### C BC ####[facility] L[address]tisvl[address] [place] [address]Dr. Garima Heraclio MANUAL DIFF REQ NO Normal [facility] Comment on above: Performed By: #### C BC ####[facility] Xkxrmusbir5711 [place] [id number]. Garima Pulliam MCH (RBC) [Entitic mass] 30.2 pg Normal 25.9-34.0 [facility] Comment on above: Performed By: #### C BC ####[facility] Beljmyglij6172 [place] [address]Dr. Garima Pulliam MCHC (RBC) [Mass/Vol] 33.8 g/dL Normal 29.9-35.2 [facility] Comment on above: Performed By: #### C BC ####[facility] Vjtvmoiptp3546 [place] [id number]. Garima Pulliam MCV (RBC) [Entitic vol] 89.2 fL Normal 80.0-94.0 [facility] Comment on above: Performed By: #### C BC ####[facility] Qcwpuhhwcd[address] [place], [place] [address]Dr. Chapisrenu Pulliam MONO # 0.7 103/ul Normal 0.3-0.8 [facility] Comment on above: Performed By: #### C BC ####[facility] Gruzlilpvs8219 [place] [id number]. Garima Pulliam Monocytes/100 WBC (Bld) 8.3 % Normal 1.7-12.0 [facility] Comment on above: Performed By: #### C BC ####[facility] Ozmgxmrnog5078 [place] [id number]. Garima Pulliam NEUT # 5.1 103/ul Normal 1.4-6.5 [facility] Comment on above: Performed By: #### C BC ####[facility] Efchbxwjom1928 [place] [id number]. Garima Pulliam Neutrophils/100 WBC (Bld) 59.0 % Normal 43.0-75.0 [facility] Comment on above: Performed By: #### C BC ####[facility] Edylrjcnww7571 [place] [address]Dr. Garima Pulliam Platelet mean volume (Bld) [Entitic vol] 8.7 fL Critically low 9.5-13.5 [facility] Comment on above: Performed By: #### C BC ####[facility] Gutdiquwca0127 [place] [address]Dr. Garima Pulliam PLT 182 103/ul Normal 150-450 [facility] Comment on above: Performed By: #### C BC ####[facility] Prvtoixrrc3218 [place] [id number]. Garima Pulliam RBC 4.74 106/ul Normal 4.70-6.10 [facility] Comment on above: Performed By: #### C BC ####[facility] Bske[address]uyfu[address] [place], [place] [address]Dr. Garima Pulliam WBC 8.7 103/ul Normal 4.0-11.0 [facility] Comment on above: Performed By: #### C BC ####[facility] Qkzsnfekee[address] [place], [place] [address]Dr. Garima Pulliam Covid-19 PCR (CVDTB)on 12-25 SARS-CoV-2 (COVID-19) RNA MARIE+probe Ql (Unsp spec) Not detected Normal NOT DETECTED [facility] Comment on above: Result Comment: [...] for this test is supported by the [place] of [employer] and Human Service's declaration that [...] be used). Performed By: #### C VDTBH ####[facility] Slxbklqats5569 [place] [address]Dr. Garima Pulliam PROF 14(COMP METB)on 023 Albumin [Mass/Vol] 3.6 g/dL Normal 3.4-5.0 [facility] Comment on above: Performed By: #### C MP, BNP, HSTROPN ####[facility] Iuimhpohxm0048 [place] [address]Dr. Garima Pulliam Albumin/Globulin [Mass ratio] 1.5 {ratio} Normal [facility] Comment on above: Performed By: #### C MP, BNP, HSTROPN ####[facility] Kbnxjzbzlh1160 [place] [address]Dr. Garima Pulliam ALP [Catalytic activity/Vol] 79 U/L Normal 46-116 [facility] Comment on above: Performed By: #### C MP, BNP, HSTROPN ####[facility] Ndthtwpich0621 [place] [address]Dr. Garima Pulliam ALT [Catalytic activity/Vol] 27 U/L Normal 16-63 [facility] Comment on above: Performed By: #### C MP, BNP, HSTROPN ####[facility] Udvmjtprjv2537 [place] [address]Dr. Garima Pulliam Anion gap [Moles/Vol] 11.7 mmol/L Normal [facility] Comment on above: Performed By: #### C MP, BNP, HSTROPN ####[facility] Qxrraiouwf8073 [place] [address]Dr. Garima Pulliam AST [Catalytic activity/Vol] 21 U/L Normal 15-37 [facility] Comment on above: Performed By: #### C MP, BNP, HSTROPN ####[facility] Xsycsdmvxj5639 [place] [address]Dr. Garima Pulliam Bilirubin [Mass/Vol] 0.3 mg/dL Normal 0.2-1.0 [facility] Comment on above: Performed By: #### C MP, BNP, HSTROPN ####[facility] Octgxctabe8196 [place] [address]Dr. Garima Pulliam Calcium [Mass/Vol] 8.9 mg/dL Normal 8.5-10.1 [facility] Comment on above: Performed By: #### C MP, BNP, HSTROPN ####[facility] Swfvbztwvh4721 [place] [address]Dr. Garima Pulliam Chloride [Moles/Vol] 107 mmol/L Normal 98-107 [facility] Comment on above: Performed By: #### C MP, BNP, HSTROPN ####[facility] Oeyafdndip8539 [place] [address]Dr. Garima Pulliam CO2 [Moles/Vol] 26.0 mmol/L Normal 21.0-32.0 [facility] Comment on above: Performed By: #### C MP, BNP, HSTROPN ####[facility] Njhjqhbjlh7029 [place] [address]Dr. Garima Pulliam Creatinine [Mass/Vol] 0.65 mg/dL Critically low 0.70-1.30 [facility] Comment on above: Performed By: #### C MP, BNP, HSTROPN ####[facility] Qdojgkmwip6827 [place] [address]Dr. Yilan Pulliam EGFR-AF PORTUGUESE >60 Normal >=60 [facility] Comment on above: Performed By: #### C MP, BNP, HSTROPN ####[facility] Gosddgizeb8334 [place] [address]Dr. Garima Pulliam EGFR-NON AF PORTUGUESE >60 Normal >=60 [facility] Comment on above: Performed By: #### C MP, BNP, HSTROPN ####[facility] Rookfdtjjj6550 [place] [address]Dr. Garima Pulliam Globulin (S) [Mass/Vol] 2.4 g/dL Normal [facility] Comment on above: Performed By: #### C MP, BNP, HSTROPN ####[facility] [address]jyjyt[address] [place], [place] [address]Dr. Garima Pulliam Glucose [Mass/Vol] 85 mg/dL Normal 74-106 [facility] Comment on above: Performed By: #### C MP, BNP, HSTROPN ####[facility] Nhudccwztv1547 [place] [address]Dr. Garima Pulliam Potassium [Moles/Vol] 3.7 mmol/L Normal 3.5-5.1 [facility] Comment on above: Performed By: #### C MP, BNP, HSTROPN ####[facility] Miwsfpwolp0628 [place] [address]Dr. Garima Pulliam Protein [Mass/Vol] 6.0 g/dL Critically low 6.4-8.2 [facility] Comment on above: Performed By: #### C MP, BNP, HSTROPN ####[facility] Xjahfvjfdg9969 [place] [address]Dr. Garima Pulliam Sodium [Moles/Vol] 141 mmol/L Normal 136-145 [facility] Comment on above: Performed By: #### C MP, BNP, HSTROPN ####[facility] Efgtyidyjl2432 [place] [address]Dr. Garima Pulliam Urea nitrogen [Mass/Vol] 5.0 mg/dL Critically low 7.0-18.0 [facility] Comment on above: Performed By: #### C MP, BNP, HSTROPN ####[facility] Gsehspkyfg9540 [place] [address]Dr. Garima Pulliam Urea nitrogen/Creatinine [Mass ratio] 7.7 mg/mg Normal [facility] Comment on above: Performed By: #### C MP, BNP, HSTROPN ####[facility] Ylspuzueip8366 [place] [address]Dr. Garima Pulliam PROTIMEon 01-12-2023 INR Coag (PPP) [Relative time] 1.16 {INR} Normal [facility] Comment on above: Performed By: #### P TT, PT ####[facility] Oilyxmdmnk8089 [place] [address]Dr. Garima Pulliam INR GUIDELINES SEE BELOW Normal [facility] Comment on above: Result Comment: WESLEY RED INR: 2.0 - 3.0 CONDITIONS NOT LISTED BELOW 2.5 - 3.5 FOR PROSTHETIC HEART VALVE REPLACEMENT 2.5 - 3.5 RECURRENT THROMBOSIS Performed By: #### P TT, PT ####[facility] Usdsngwvip[address] [place], [place] [address]Dr. Garima Pulliam PT Coag (PPP) [Time] 12.2 s Critically high 9.0-11.6 [facility] Comment on above: Performed By: #### P TT, PT ####[facility] Zgnjgowxun1205 [place] [address]Dr. Garima Pulliam PTTon 01-12-2023 aPTT Coag (Bld) [Time] 29.1 s Normal 22.3-36.2 [facility] Comment on above: Performed By: #### P TT, PT ####[facility] [address]xhvsxydnk[address] [place], [place] [address]Dr. Garima Pulliam TROPONIN, HIGH SENSITIVITYon 01-12-2023 HSTROP 10.3 pg/mL Normal 4.0-76.1 [facility] Comment on above: Result Comment: CUT- OFF POINTS HAVE BEEN ESTABLISHED BASED ON THE FOURTH UNIVERSAL DEFINITIONS OF MYOCARDIALINFARCTION. THE UPPER REFERENCE LIMIT (URL) OF TROPONIN, DEFINED THE 99TH PERCENTILE OFcTnI DISTRIBUTION IN A REFERENCE POPULATION, HAS BEEN CONFIRMED THE DECISION THRESHOLDFOR [place] DIAGNOSIS. Performed By: #### H STROPN ####[facility] Qanpmrufuo0206 [place] [address]Dr. Garima Pulliam HSTROP 9.2 pg/mL Normal 4.0-76.1 [facility] Comment on above: Result Comment: CUT- OFF POINTS HAVE BEEN ESTABLISHED BASED ON THE FOURTH UNIVERSAL DEFINITIONS OF MYOCARDIALINFARCTION. THE UPPER REFERENCE LIMIT (URL) OF TROPONIN, DEFINED THE 99TH PERCENTILE OFcTnI DISTRIBUTION IN A REFERENCE POPULATION, HAS BEEN CONFIRMED THE DECISION THRESHOLDFOR [place] DIAGNOSIS. Performed By: #### C MP, BNP, HSTROPN ####[facility] Dhdzxxptop6303 [place] [address]Dr. Garima Pulliam XR CHEST 1 Von 01-12-2023 XR CHEST 1 V Normal [facility] XR CHEST 1 Von 01-01-2023 XR CHEST 1 V Normal [facility] CARDIAC NASH 3-6on 3 CK [Catalytic activity/Vol] 196 U/L Normal 39-308 [facility] Comment on above: Performed By: #### C MREP ####[facility] Ipgkortmiw1091 [place] [address]Dr. Garima Pulliam CK.MB [Mass/Vol] 7.41 ng/mL Critically high <=3.60 [facility] Comment on above: Performed By: #### C MREP ####[facility] Sptzqmbicg3291 [place] [address]Dr. Garima Pulliam HSTROP 10.3 pg/mL Normal 4.0-76.1 [facility] Comment on above: Result Comment: CUT- OFF POINTS HAVE BEEN ESTABLISHED BASED ON THE FOURTH UNIVERSAL DEFINITIONS OF MYOCARDIALINFARCTION. THE UPPER REFERENCE LIMIT (URL) OF TROPONIN, DEFINED THE 99TH PERCENTILE OFcTnI DISTRIBUTION IN A REFERENCE POPULATION, HAS BEEN CONFIRMED THE DECISION THRESHOLDFOR [place] DIAGNOSIS. Performed By: #### C MREP ####[facility] Smuakwwwgn7589 [place] [id number]. Garima Pulliam XR CHEST 1 Von 12-26-2022 XR CHEST 1 V Normal [facility] BNPon 12-25-2022 Natriuretic peptide B (Bld) [Mass/Vol] 98.0 pg/mL Normal <=900.0 [facility] Comment on above: Performed By: #### B MARVIN FRENCH CMADM ####[facility] Tzenakkubg37[address] [place] [address]Dr. Garima Pulliam CARDIAC NASH ADMITon 023 CK [Catalytic activity/Vol] 208 U/L Normal 39-308 [facility] Comment on above: Performed By: #### B MARVIN FRENCH CMADM ####[facility] Zrfdnofbli2597 [place] [address]Dr. Garima Pulliam CK.MB [Mass/Vol] 7.63 ng/mL Critically high <=3.60 [facility] Comment on above: Performed By: #### B MARVIN FRENCH CMADM ####[facility] Zgrcdublcw[address] [place], [place] [address]Dr. Garima Pulliam HSTROP 8.8 pg/mL Normal 4.0-76.1 [facility] Comment on above: Result Comment: CUT- OFF POINTS HAVE BEEN ESTABLISHED BASED ON THE FOURTH UNIVERSAL DEFINITIONS OF MYOCARDIALINFARCTION. THE UPPER REFERENCE LIMIT (URL) OF TROPONIN, DEFINED THE 99TH PERCENTILE OFcTnI DISTRIBUTION IN A REFERENCE POPULATION, HAS BEEN CONFIRMED THE DECISION THRESHOLDFOR [place] DIAGNOSIS. Performed By: #### B MARVIN FRENCH CMADM ####[facility] Sljoxlxngt[address] [place], [place] [address]Dr. Garima Pulliam DORIS 83 ng/mL Normal 16-96 [facility] Comment on above: Performed By: #### B MARVIN FRENCH CMADM ####[facility] Z[address]ixpmfglt[address] [place], [place] [address]Dr. Garima Pulliam CBC AUTO DIFFon 12-25-2022 BASO # 0.0 103/ul Normal 0.0-0.1 [facility] Comment on above: Performed By: #### C BC ####[facility] Xfwcobuntv[address] [place], [place] [address]Dr. Garima Pulliam Basophils/100 WBC (Bld) 0.0 % Critically low 0.2-2.0 [facility] Comment on above: Performed By: #### C BC ####[facility] Syyboaiheh9040 [place] [address]Dr. Garima Pulliam EO # 0.0 103/ul Normal 0.0-0.7 [facility] Comment on above: Performed By: #### C BC ####[facility] Surpbblgmb212[address] [place], [place] [address]Dr. Garima Pulliam Eosinophils/100 WBC (Bld) 0.7 % Critically low 0.9-7.0 [facility] Comment on above: Performed By: #### C BC ####[facility] Kwmhiocmbg06[address] [place], [place] [address]Dr. Garima Pulliam Erythrocyte distribution width (RBC) [Ratio] 13.4 % Normal 11.0-15.0 [facility] Comment on above: Performed By: #### C BC ####[facility] Nfubiocvkm[address] [place], [place] [address]Dr. Garima Pulliam Hematocrit (Bld) [Volume fraction] 42.9 % Normal 42.0-54.0 [facility] Comment on above: Performed By: #### C BC ####[facility] Htvwusbush[address] [place], [place] [address]Dr. Garima Pulliam Hemoglobin (Bld) [Mass/Vol] 14.4 g/dL Normal 14.0-18.0 [facility] Comment on above: Performed By: #### C BC ####[facility] Ixitvnpzgr[address] [place], [place] [address]Dr. Garima Pulliam IG # 0.00 10e3/ul Normal 0.00-0.03 [facility] Comment on above: Performed By: #### C BC ####[facility] Dmarkytccg[address] [place], [place] [address]Dr. Garima Pulliam IG % 0.0 % Normal 0.0-0.5 [facility] Comment on above: Performed By: #### C BC ####[facility] Snazhjclxo[address] [place], [place] [address]Dr. Garima Pulliam LYMPH # 2.4 103/ul Normal 1.2-3.8 [facility] Comment on above: Performed By: #### C BC ####[facility] Qxsalcjawc6134 [place] [id number]. Chapisrenu Pulliam Lymphocytes/100 WBC (Bld) 29.2 % Normal 20.5-60.0 [facility] Comment on above: Performed By: #### C BC ####[facility] Vykqkwnekw9724 [place] [id number]. Garima Pulliam MANUAL DIFF REQ NO Normal [facility] Comment on above: Performed By: #### C BC ####[facility] Xxlojrrdcc7627 [place] [id number]. Garima Pulliam MCH (RBC) [Entitic mass] 30.7 pg Normal 25.9-34.0 [facility] Comment on above: Performed By: #### C BC ####[facility] [address]xptthnmoj[address] [place], [place] [address]Dr. Garima Pulliam MCHC (RBC) [Mass/Vol] 33.6 g/dL Normal 29.9-35.2 [facility] Comment on above: Performed By: #### C BC ####[facility] Itoqipnwxm18[address] [place], [place] [address]Dr. Garima Pulliam MCV (RBC) [Entitic vol] 91.5 fL Normal 80.0-94.0 [facility] Comment on above: Performed By: #### C BC ####[facility] Vqaot[address]vgo[address] [place], [place] [address]Dr. Garima Pulliam MONO # 0.0 103/ul Critically low 0.3-0.8 [facility] Comment on above: Performed By: #### C BC ####[facility] Yywprxwtqt7817 [place] [address]Dr. Garima Pulliam Monocytes/100 WBC (Bld) 8.0 % Normal 1.7-12.0 [facility] Comment on above: Performed By: #### C BC ####[facility] Inajfujzjm[address] [place], [place] [address]Dr. Garima Pulliam NEUT # 5.1 103/ul Normal 1.4-6.5 [facility] Comment on above: Performed By: #### C BC ####[facility] Sbdrgrwoix6359 [place], [place] [address]Db. Garima Pulliam Neutrophils/100 WBC (Bld) 62.8 % Normal 43.0-75.0 [facility] Comment on above: Performed By: #### C BC ####[facility] Nwauumsxlq1299 [place], [place] [address]Ht. Garima Pulliam Platelet mean volume (Bld) [Entitic vol] 8.6 fL Critically low 9.5-13.5 [facility] Comment on above: Performed By: #### C BC ####[facility] Pxxbzwbvfz6154 [place] [id number]. Garima Pulliam PLT 200 103/ul Normal 150-450 [facility] Comment on above: Performed By: #### C BC ####[facility] Gserivoujf0971 [place] [id number]. Garima Pulliam RBC 4.69 106/ul Critically low 4.70-6.10 [facility] Comment on above: Performed By: #### C BC ####[facility] Iewulrsuiq8362 [place], [place] [address]Px. Garima Pulliam WBC 8.2 103/ul Normal 4.0-11.0 [facility] Comment on above: Performed By: #### C BC ####[facility] Xibkivjewp5421 [place], [place] [address]Av. Garima Pulliam Cov[facility]-19 PCR [facility]on SARS-CoV-2 (COVID-19) RNA MARIE+probe Ql (Unsp spec) Not detected Normal NOT DETECTED [facility] Comment on above: Result Comment: [...] for this test is supported by the [employer] and Human Service's [...] be used). Performed By: #### C VDTBH ####[facility] Wuigaaifdx[address] [place], [place] [address]Dr. Garima Pulliam INFLUENZA A AND B AGon 12-25 INFLUANEGH SEE BELOW Normal [facility] Comment on above: Result Comment: Nega tive for Flu A protein angiten. Infection due to Flu A cannot be ruled out. Flu A angiten in the sample may be below the detection limit of the test. Performed By: #### I NFLUAB ####[facility] Vhqbnktlmk[address] [place], [place] [address]Dr. Garima Pulliam INFLUBNEGH SEE BELOW Normal [facility] Comment on above: Result Comment: Nega tive for Flu B protein antigen. Infection due to Flu B cannot be ruled out. Flu B antigen in the sample may be below the detection limit of the test. Performed By: #### I NFLUAB ####[facility] Zlaiiuuvcy[address] [place], [place] [address]Dr. Garima Pulliam INFLUENZA A AG Negative Normal NEGATIVE SEE COMMENT [facility] Comment on above: Performed By: #### I NFLUAB ####[facility] Xkllknkpgv[address] [place], [place] [address]Dr. renu [facility] INFLUENZA B AG Negative Normal NEGATIVE SEE COMMENT [facility] Comment on above: Performed By: #### I NFLUAB ####[facility] Oggpavsqyc[address] [place], [place] [address]Dr. Garima Pulliam PROF CHEM 8 (BAS METB)on Anion gap [Moles/Vol] 11.1 mmol/L Normal [facility] Comment on above: Performed By: #### B SEAMAN OFFICER, BMP, CMADM ####[facility] Cvgkkltdmc[address] [place], [place] [address]Dr. Garima Pulliam Calcium [Mass/Vol] 8.5 mg/dL Normal 8.5-10.1 [facility] Comment on above: Performed By: #### B SEAMAN OFFICER, MARVIN, CMADM ####[facility] [address]bmytrnzjq[address] [place] [id number]. Garima Pulliam Chloride [Moles/Vol] 106 mmol/L Normal 98-107 [facility] Comment on above: Performed By: #### B SEAMAN OFFICER, BMP, CMADM ####[facility] Vwdztgbfwq[address] [place] [address]Dr. Garima Pulliam CO2 [Moles/Vol] 27.4 mmol/L Normal 21.0-32.0 [facility] Comment on above: Performed By: #### B SEAMAN OFFICER, MARVIN, CMADM ####[facility] Kxcioyajod[address] [place] [address]Dr. Garima Pulliam Creatinine [Mass/Vol] 0.65 mg/dL Critically low 0.70-1.30 [facility] Comment on above: Performed By: #### B SEAMAN OFFICER, MARVIN, CMADM ####[facility] Koguyiitnv[address] [place] [address]Dr. Garima Pulliam EGFR-AF PORTUGUESE >60 Normal >=60 [facility] Comment on above: Performed By: #### B SEAMAN OFFICER, BMP, CMADM ####[facility] Jiitirrqdp2967 [place] [address]Dr. Garima Pulliam EGFR-NON AF PORTUGUESE >60 Normal >=60 [facility] Comment on above: Performed By: #### B SEAMAN OFFICER, BMP, CMADM ####[facility] Ltwzthqsfx1583 [place] [address]Dr. Garima Pulliam Glucose [Mass/Vol] 140 mg/dL Critically high 74-106 [facility] Comment on above: Performed By: #### B SEAMAN OFFICER, BMP, CMADM ####[facility] Mneujglsjl5868 [place] [address]Dr. Garima Pulliam Potassium [Moles/Vol] 3.5 mmol/L Normal 3.5-5.1 [facility] Comment on above: Performed By: #### B SEAMAN OFFICER, BMP, CMADM ####[facility] Afulzsqnfx[address]120 [place] [address]Dr. Garima Pulliam Sodium [Moles/Vol] 141 mmol/L Normal 136-145 [facility] Comment on above: Performed By: #### B SEAMAN OFFICER, BMP, CMADM ####[facility] Tyqjeprugp[address] [place] [address]Dr. Garmia Pulliam Urea nitrogen [Mass/Vol] 8.0 mg/dL Normal 7.0-18.0 [facility] Comment on above: Performed By: #### B SEAMAN OFFICER, BMP, CMADM ####[facility] Onbymvvzog99[address] [place] [address]Dr. Garima Pulliam Urea nitrogen/Creatinine [Mass ratio] 12.3 mg/mg Normal [facility] Comment on above: Performed By: #### B SEAMAN OFFICER, BMP, CMADM ####[facility] [address]qz[address] [place], [place] [address]Dr. Garima Pulliam CARDIAC NASH ADMITon 023 CK [Catalytic activity/Vol] 165 U/L Normal 39-308 [facility] Comment on above: Performed By: #### B DAVID, CMADM ####[facility] [address]qorl[address] [place], [place] [address]Dr. Garima Pulliam CK.MB [Mass/Vol] 6.48 ng/mL Critically high <=3.60 [facility] Comment on above: Performed By: #### B MP, CMADM ####[facility] Vnaoxkzste[address] [place], [place] [address]Dr. Garima Pulliam HSTROP 11.7 pg/mL Normal 4.0-76.1 [facility] Comment on above: Result Comment: CUT- OFF POINTS HAVE BEEN ESTABLISHED BASED ON THE FOURTH UNIVERSAL DEFINITIONS OF MYOCARDIALINFARCTION. THE UPPER REFERENCE LIMIT (URL) OF TROPONIN, DEFINED THE 99TH PERCENTILE OFcTnI DISTRIBUTION IN A REFERENCE POPULATION, HAS BEEN CONFIRMED THE DECISION THRESHOLDFOR [place] DIAGNOSIS. Performed By: #### B MP, CMADM ####[facility] Nxiimkcajn[address] [place], [place] [address]Dr. Garima Pulliam DORIS 83 ng/mL Normal 16-96 [facility] Comment on above: Performed By: #### B MP, CMADM ####[facility] Yrpwchyhzf8044 [place] [address]Dr. Garima Pulliam CBC AUTO DIFFon 12-10-2022 BASO # 0.0 103/ul Normal 0.0-0.1 [facility] Comment on above: Performed By: #### C BC ####[facility] Hrwdcgfkyf[address] [place], [place] [address]Dr. Garima Heraclio Basophils/100 WBC (Bld) 0.3 % Normal 0.2-2.0 [facility] Comment on above: Performed By: #### C BC ####[facility] Wuaeglmxtc[address] [place], [place] [address]Dr. Garima Pulliam EO # 0.1 103/ul Normal 0.0-0.7 [facility] Comment on above: Performed By: #### C BC ####[facility] Yhdsyiuvax[address] [place], [place] [address]Dr. Garima Pulliam Eosinophils/100 WBC (Bld) 0.4 % Critically low 0.9-7.0 [facility] Comment on above: Performed By: #### C BC ####[facility] Fwefvxjcbu[address] [place], [place] [address]Dr. Garima Pulliam Erythrocyte distribution width (RBC) [Ratio] 13.2 % Normal 11.0-15.0 [facility] Comment on above: Performed By: #### C BC ####[facility] Ldutttmuxb[address] [place], [place] [address]Dr. Garima Pulliam Hematocrit (Bld) [Volume fraction] 42.4 % Normal 42.0-54.0 [facility] Comment on above: Performed By: #### C BC ####[facility] Vtqtlveikh[address] [place], [place] [address]Dr. Garima Pulliam Hemoglobin (Bld) [Mass/Vol] 14.4 g/dL Normal 14.0-18.0 [facility] Comment on above: Performed By: #### C BC ####[facility] Xsxllvnjtl8135 [place] [id number]. Garima Heraclio IG # 0.05 10e3/ul Critically high 0.00-0.03 [facility] Comment on above: Performed By: #### C BC ####[facility] Dtlwfsywwx8921 [place] [address]Dr. Garima Heraclio IG % 0.4 % Normal 0.0-0.5 [facility] Comment on above: Performed By: #### C BC ####[facility] Inuxqrjnon74[address] [place], [place] [address]Dr. Garima Pulliam LYMPH # 0.8 103/ul Critically low 1.2-3.8 [facility] Comment on above: Performed By: #### C BC ####[facility] Outxdutxum[address] [place], [place] [address]Dr. Chapisrenu Pulliam Lymphocytes/100 WBC (Bld) 6.5 % Critically low 20.5-60.0 [facility] Comment on above: Performed By: #### C BC ####[facility] Bnkdsqxtnt[address] [place], [place] [address]Dr. Chapsirenu Pulliam MANUAL DIFF REQ NO Normal [facility] Comment on above: Performed By: #### C BC ####[facility] Guqzggygsg[address] [place], [place] [address]DrAdalberto Garima Pulliam MCH (RBC) [Entitic mass] 30.5 pg Normal 25.9-34.0 [facility] Comment on above: Performed By: #### C BC ####[facility] Xzmfcgtq[address] [place], [place] [address]DrAdalberto Garima Heraclio MCHC (RBC) [Mass/Vol] 34.0 g/dL Normal 29.9-35.2 [facility] Comment on above: Performed By: #### C BC ####[facility] [address]cl[address] [place], [place] [address]DrAdalberto Garima Heraclio MCV (RBC) [Entitic vol] 89.8 fL Normal 80.0-94.0 [facility] Comment on above: Performed By: #### C BC ####[facility] F[address]kgjtkmtw[address] [place], [place] [address]Dr. Garima Pulliam MONO # 0.2 103/ul Critically low 0.3-0.8 [facility] Comment on above: Performed By: #### C BC ####[facility] Vqymtuzcxh9786 [place] [id number]. Garima Pulliam Monocytes/100 WBC (Bld) 2.0 % Normal 1.7-12.0 [facility] Comment on above: Performed By: #### C BC ####[facility] Bzoiejxrfy2903 [place] [address]Dr. Chapisrenu Heraclio NEUT # 10.5 103/ul Critically high 1.4-6.5 [facility] Comment on above: Performed By: #### C BC ####[facility] Cmfnfomzjt0158 [place] [address]Dr. Garima Pulliam Neutrophils/100 WBC (Bld) 90.4 % Critically high 43.0-75.0 [facility] Comment on above: Performed By: #### C BC ####[facility] Osotxpcsas9110 [place] [address]Dr. Garima Pulliam Platelet mean volume (Bld) [Entitic vol] 9.4 fL Critically low 9.5-13.5 [facility] Comment on above: Performed By: #### C BC ####[facility] Eoynbdqgve5119 [place] [address]Dr. Garima Pulliam PLT 198 103/ul Normal 150-450 [facility] Comment on above: Performed By: #### C BC ####[facility] Fabdfctemi8220 [place] [address]Dr. Garima Pulliam RBC 4.72 106/ul Normal 4.70-6.10 [facility] Comment on above: Performed By: #### C BC ####[facility] Khortrdkqi[address]44 [place] [id number]. Garima Pulliam WBC 11.6 103/ul Critically high 4.0-11.0 [facility] Comment on above: Performed By: #### C BC ####[facility] Spjdggzily3258 [place] [address]DrAdalberto Pulliam PROF CHEM 8 (BAS METB)on Anion gap [Moles/Vol] 11.3 mmol/L Normal [facility] Comment on above: Performed By: #### B NANCY HERNANDEZ ####[facility] Xvezhfvlpt[address] [place] [address]Dr. Garima Pulliam Calcium [Mass/Vol] 8.9 mg/dL Normal 8.5-10.1 [facility] Comment on above: Performed By: #### B NANCY HERNANDEZ ####[facility] Rpdizapbsi6195 [place] [address]Dr. Garima Pulliam Chloride [Moles/Vol] 103 mmol/L Normal 98-107 [facility] Comment on above: Performed By: #### B NANCY HERNANDEZ ####[facility] [address]ct[address] [place], [place] [address]Dr. Garima Pulliam CO2 [Moles/Vol] 28.2 mmol/L Normal 21.0-32.0 [facility] Comment on above: Performed By: #### NANCY Larkin MP ####[facility] Oqkiksjwpm9774 [place] [address]Dr. Chapisrenu Pulliam Creatinine [Mass/Vol] 0.60 mg/dL Critically low 0.70-1.30 [facility] Comment on above: Performed By: #### NANCY Larkin MP ####[facility] Qzzkqmpjfz9861 [place] [address]Dr. Garima Pulliam EGFR-AF PORTUGUESE >60 Normal >=60 [facility] Comment on above: Performed By: #### NANCY Larkin MP ####[facility] Ovmgfrichn9177 [place] [address]Dr. Garima Pulliam EGFR-NON AF PORTUGUESE >60 Normal >=60 [facility] Comment on above: Performed By: #### NANCY Larkin MP ####[facility] Nytyhqnfyn[address] [place], [place] [address]Dr. Garima Pulliam Glucose [Mass/Vol] 166 mg/dL Critically high 74-106 [facility] Comment on above: Performed By: #### B MP, CMADM ####[facility] Qaeccarkju9362 [place] [address]Dr. Garima Pulliam Potassium [Moles/Vol] 3.5 mmol/L Normal 3.5-5.1 [facility] Comment on above: Performed By: #### B MP, CMADM ####[facility] Hrvxotgqmz3406 [place] [address]Dr. Garima Pulliam Sodium [Moles/Vol] 139 mmol/L Normal 136-145 [facility] Comment on above: Performed By: #### B DAVID, CMADM ####[facility] Nowseyriwu5454 [place] [address]Dr. Garima Heraclio Urea nitrogen [Mass/Vol] 9.0 mg/dL Normal 7.0-18.0 [facility] Comment on above: Performed By: #### B DAVID, NANCY ####[facility] Bvzwjrecvp[address] [place], [place] [address]Dr. Garima Heraclio Urea nitrogen/Creatinine [Mass ratio] 15.0 mg/mg Normal [facility] Comment on above: Performed By: #### B DAVID, CMAANA ROSA ####[facility] Fwkyk[address] [place], [place] [address]Dr. Garima Pulliam XR CHEST 1 Von 12-10-2022 XR CHEST 1 V Normal [facility] BNPon 11-27-2022 Natriuretic peptide B (Bld) [Mass/Vol] 95.0 pg/mL Normal <=900.0 [facility] Comment on above: Performed By: #### C MP, HSTROPN, BNP ####[facility] [address]leuolxngr[address] [place], [place] [address]Dr. Garima Heraclio CBC AUTO DIFFon 11-27-2022 BASO # 0.0 103/ul Normal 0.0-0.1 [facility] Comment on above: Performed By: #### C BC ####[facility] Fkxlxlnmys[address] [place], [place] [address]Dr. Garima Heraclio Basophils/100 WBC (Bld) 0.2 % Normal 0.2-2.0 [facility] Comment on above: Performed By: #### C BC ####[facility] Dinpxrilej3840 [place] [id number]. Garima Pulliam EO # 0.2 103/ul Normal 0.0-0.7 [facility] Comment on above: Performed By: #### C BC ####[facility] Jainnarjhq5486 [place] [id number]. Garima Pulliam Eosinophils/100 WBC (Bld) 2.0 % Normal 0.9-7.0 [facility] Comment on above: Performed By: #### C BC ####[facility] Tyncsvshup[address] [place], [place] [address]Dr. Garima Pulliam Erythrocyte distribution width (RBC) [Ratio] 13.2 % Normal 11.0-15.0 [facility] Comment on above: Performed By: #### C BC ####[facility] [address]ql[address] [place], [place] [address]Dr. Garima Pulliam Hematocrit (Bld) [Volume fraction] 42.4 % Normal 42.0-54.0 [facility] Comment on above: Performed By: #### C BC ####[facility] [address]ts[address] [place], [place] [address]Dr. Garima Pulliam Hemoglobin (Bld) [Mass/Vol] 14.4 g/dL Normal 14.0-18.0 [facility] Comment on above: Performed By: #### C BC ####[facility] [address]ofqhjvvkj[address] [place], [place] [address]Dr. Garima Pulliam IG # 0.04 10e3/ul Critically high 0.00-0.03 [facility] Comment on above: Performed By: #### C BC ####[facility] Eiygkl[address] [place], [place] [address]Dr. Garima Pulliam IG % 0.4 % Normal 0.0-0.5 [facility] Comment on above: Performed By: #### C BC ####[facility] Veyccumurk[address] [place], [place] [address]Dr. Garima Pulliam LYMPH # 2.2 103/ul Normal 1.2-3.8 [facility] Comment on above: Performed By: #### C BC ####[facility] Dwrusmjhdk6953 [place] [id number]. Garima Pulliam Lymphocytes/100 WBC (Bld) 21.5 % Normal 20.5-60.0 [facility] Comment on above: Performed By: #### C BC ####[facility] Qvqdzyfvjd7369 [place] [id number]. Garima Heraclio MANUAL DIFF REQ NO Normal [facility] Comment on above: Performed By: #### C BC ####[facility] Fsrllbmkvf3172 [place] [id number]. Garima Heraclio MCH (RBC) [Entitic mass] 30.4 pg Normal 25.9-34.0 [facility] Comment on above: Performed By: #### C BC ####[facility] Fscqrhoscp7858 [place] [address]Dr. Garima Heraclio MCHC (RBC) [Mass/Vol] 34.0 g/dL Normal 29.9-35.2 [facility] Comment on above: Performed By: #### C BC ####[facility] Wdyhziitnf5207 [place] [id number]. Garima Pulliam MCV (RBC) [Entitic vol] 89.6 fL Normal 80.0-94.0 [facility] Comment on above: Performed By: #### C BC ####[facility] Tjttvuelxb8132 [place] [id number]. Garima Pulliam MONO # 0.8 103/ul Normal 0.3-0.8 [facility] Comment on above: Performed By: #### C BC ####[facility] Rajfakumeb7628 [place] [id number]. Chapisrenu Pulliam Monocytes/100 WBC (Bld) 7.7 % Normal 1.7-12.0 [facility] Comment on above: Performed By: #### C BC ####[facility] H[address] [place], [place] [address]Dr. Garima Pulliam NEUT # 7.0 103/ul Critically high 1.4-6.5 [facility] Comment on above: Performed By: #### C BC ####[facility] Aotaqvihyp0489 [place] [id number]. Garima Pulliam Neutrophils/100 WBC (Bld) 68.2 % Normal 43.0-75.0 [facility] Comment on above: Performed By: #### C BC ####[facility] Tsykpactyz7003 [place] [id number]. Chapisrenu Pulliam Platelet mean volume (Bld) [Entitic vol] 8.9 fL Critically low 9.5-13.5 [facility] Comment on above: Performed By: #### C BC ####[facility] Dhzvmtrguf3480 [place] [address]Dr. Gariam Pulliam PLT 222 103/ul Normal 150-450 [facility] Comment on above: Performed By: #### C BC ####[facility] Noahgrrowb1352 [place] [address]Dr. Garima Pulliam RBC 4.73 106/ul Normal 4.70-6.10 [facility] Comment on above: Performed By: #### C BC ####[facility] Owyothguea2745 [place] [address]Dr. Garima Pulliam WBC 10.3 103/ul Normal 4.0-11.0 [facility] Comment on above: Performed By: #### C BC ####[facility] Srhmhogcfw7666 [place] [address]Dr. Garima Pulliam PROF 14(COMP METB)on 023 Albumin [Mass/Vol] 3.7 g/dL Normal 3.4-5.0 [facility] Comment on above: Performed By: #### C MP, HSTROPN, BNP ####[facility] Mmxgadhrpq0373 [place] [address]Dr. Chapisrenu Pulliam Albumin/Globulin [Mass ratio] 1.5 {ratio} Normal [facility] Comment on above: Performed By: #### C MP, HSTROPN, BNP ####[facility] Pwoulntbem6140 [place] [address]Dr. Garima Pulliam ALP [Catalytic activity/Vol] 79 U/L Normal 46-116 [facility] Comment on above: Performed By: #### C MP, HSTROPN, BNP ####[facility] Riasdwlibh6252 [place] [address]Dr. Garima Pulliam ALT [Catalytic activity/Vol] 32 U/L Normal 16-63 [facility] Comment on above: Performed By: #### C MP, HSTROPN, BNP ####[facility] Svbmfrpiru2016 [place] [address]Dr. Garima Pulliam Anion gap [Moles/Vol] 9.5 mmol/L Normal [facility] Comment on above: Performed By: #### C MP, HSTROPN, BNP ####[facility] Aqxqasawwb[address] [place], [place] [address]Dr. Garima Pulliam AST [Catalytic activity/Vol] 25 U/L Normal 15-37 [facility] Comment on above: Performed By: #### C MP, HSTROPN, BNP ####[facility] Hllbvflgwj[address] [place], [place] [address]Dr. Chapislan Pulliam Bilirubin [Mass/Vol] 0.4 mg/dL Normal 0.2-1.0 [facility] Comment on above: Performed By: #### C MP, HSTROPN, BNP ####[facility] [address] [place], [place] [address]Dr. Garima Pulliam Calcium [Mass/Vol] 8.9 mg/dL Normal 8.5-10.1 [facility] Comment on above: Performed By: #### C MP, HSTROPN, BNP ####[facility] Qcssggktaa[address] [place], [place] [address]Dr. Chapislan Pulliam Chloride [Moles/Vol] 103 mmol/L Normal 98-107 [facility] Comment on above: Performed By: #### C MP, HSTROPN, BNP ####[facility] K[address]grji[address] [place], [place] [address]Dr. Yilan Pulliam CO2 [Moles/Vol] 28.6 mmol/L Normal 21.0-32.0 [facility] Comment on above: Performed By: #### C MP, HSTROPN, BNP ####[facility] Htgkbdmome0405 [place] [address]Dr. Garima Pulliam Creatinine [Mass/Vol] 0.72 mg/dL Normal 0.70-1.30 [facility] Comment on above: Performed By: #### C MP, HSTROPN, BNP ####[facility] Pmdgqlzfno7155 [place] [address]Dr. Garima Pulliam EGFR-AF PORTUGUESE >60 Normal >=60 [facility] Comment on above: Performed By: #### C MP, HSTROPN, BNP ####[facility] Lbsqroszkh2783 [place] [address]Dr. Garima Pulliam EGFR-NON AF PORTUGUESE >60 Normal >=60 [facility] Comment on above: Performed By: #### C MP, HSTROPN, BNP ####[facility] Hnzsidkldr6741 [place] [address]Dr. Garima Pulliam Globulin (S) [Mass/Vol] 2.5 g/dL Normal [facility] Comment on above: Performed By: #### C MP, HSTROPN, BNP ####[facility] Omkpvxchfb[address] [place], [place] [address]Dr. Garima Pulliam Glucose [Mass/Vol] 114 mg/dL Critically high 74-106 [facility] Comment on above: Performed By: #### C MP, HSTROPN, BNP ####[facility] [address]ssixycxy[address] [place], [place] [address]Dr. Garima Pulliam Potassium [Moles/Vol] 4.1 mmol/L Normal 3.5-5.1 [facility] Comment on above: Performed By: #### C MP, HSTROPN, BNP ####[facility] Ttuje[address]wq[address] [place], [place] [address]Dr. Garima Pulliam Protein [Mass/Vol] 6.2 g/dL Critically low 6.4-8.2 Th [facility] Comment on above: Performed By: #### C MP, HSTROPN, BNP ####[facility] Ysdqdiozod[address] [place], [place] [address]Dr. Yilan Pulliam Sodium [Moles/Vol] 137 mmol/L Normal 136-145 [facility] Comment on above: Performed By: #### C MP, HSTROPN, BNP ####[facility] Erwszcxdfk1786 [place] [address]Dr. Garima Pulliam Urea nitrogen [Mass/Vol] 13.0 mg/dL Normal 7.0-18.0 [facility] Comment on above: Performed By: #### C MP, HSTROPN, BNP ####[facility] Zjyfjnfbsv1877 [place] [address]Dr. Garima Pulliam Urea nitrogen/Creatinine [Mass ratio] 18.1 mg/mg Normal [facility] Comment on above: Performed By: #### C MP, HSTROPN, BNP ####[facility] Yxewuoex[address] [place], [place] [address]Dr. Garima Pulliam TROPONIN, HIGH SENSITIVITYon 11-27-2022 HSTROP [...] Performed By: #### C MP, HSTROPN, BNP ####[facility] [address]bebijjjxs[address] [place], [place] [address]Dr. Garima Pulliam XR CHEST 1 Von 11-27-2022 XR CHEST 1 V Normal [facility] BNPon 11-20-2022 Natriuretic peptide B (Bld) [Mass/Vol] 73.0 pg/mL Normal <=900.0 [facility] Comment on above: Performed By: #### B MP, HSTROPN, BNP ####[facility] Iqiltxwxhd[address] [place], [place] [address]Dr. Garima Pulliam CBC AUTO DIFFon 11-20-2022 BASO # 0.0 103/ul Normal 0.0-0.1 [facility] Comment on above: Performed By: #### C BC ####[facility] Bfxtnfyoib8669 [place] [id number]. Garima Pulliam Basophils/100 WBC (Bld) 0.3 % Normal 0.2-2.0 [facility] Comment on above: Performed By: #### C BC ####[facility] Wrpkzkqtdn5336 [place] [id number]. Garima Pulliam EO # 0.2 103/ul Normal 0.0-0.7 [facility] Comment on above: Performed By: #### C BC ####[facility] Eloimgfaxd2398 [place] [address]Dr. Garima Pulliam Eosinophils/100 WBC (Bld) 2.1 % Normal 0.9-7.0 [facility] Comment on above: Performed By: #### C BC ####[facility] [address] [place], [place] [address]Dr. Garima Pulliam Erythrocyte distribution width (RBC) [Ratio] 13.2 % Normal 11.0-15.0 [facility] Comment on above: Performed By: #### C BC ####[facility] [address]kexum[address] [place], [place] [address]Dr. Garima Pulliam Hematocrit (Bld) [Volume fraction] 43.4 % Normal 42.0-54.0 [facility] Comment on above: Performed By: #### C BC ####[facility] [address] [place], [place] [address]Dr. Garima Pulliam Hemoglobin (Bld) [Mass/Vol] 14.6 g/dL Normal 14.0-18.0 [facility] Comment on above: Performed By: #### C BC ####[facility] Abadkurwxp[address] [place] [id number]. Garima Pulliam IG # 0.02 10e3/ul Normal 0.00-0.03 [facility] Comment on above: Performed By: #### C BC ####[facility] Qnkikxsaos3756 [place] [address]Dr. Garima Pulliam IG % 0.2 % Normal 0.0-0.5 [facility] Comment on above: Performed By: #### C BC ####[facility] Xnijojkjws[address]906 [place] [id number]. Garima Heraclio LYMPH # 2.1 103/ul Normal 1.2-3.8 [facility] Comment on above: Performed By: #### C BC ####[facility] Rxvjurxbbc5877 [place] [id number]. Garima Heraclio Lymphocytes/100 WBC (Bld) 19.2 % Critically low 20.5-60.0 [facility] Comment on above: Performed By: #### C BC ####[facility] Ahbajcpgmj3367 [place] [id number]. Chapisrenu Pulliam MANUAL DIFF REQ NO Normal [facility] Comment on above: Performed By: #### C BC ####[facility] [facility] [address]nqmj[address] [place] [id number]. Garima Hreaclio MCH (RBC) [Entitic mass] 30.4 pg Normal 25.9-34.0 [facility] Comment on above: Performed By: #### C BC ####[facility] Vyodnrourn[address] [place] [address]Dr. Garima Pulliam MCHC (RBC) [Mass/Vol] 33.6 g/dL Normal 29.9-35.2 [facility] Comment on above: Performed By: #### C BC ####[facility] [address]jhdghfmot[address] [place] [id number]. Garima Heraclio MCV (RBC) [Entitic vol] 90.4 fL Normal 80.0-94.0 [facility] Comment on above: Performed By: #### C BC ####[facility] Yrhzihbbjr65[address] [place] [id number]. Garima Heraclio MONO # 0.6 103/ul Normal 0.3-0.8 [facility] Comment on above: Performed By: #### C BC ####[facility] J[address]ocksohx[address] [place] [address]Dr. Garima Heraclio Monocytes/100 WBC (Bld) 5.8 % Normal 1.7-12.0 [facility] Comment on above: Performed By: #### C BC ####[facility] Ukmbtluj[address] [place], [place] [address]We. Garima Pulliam NEUT # 7.8 103/ul Critically high 1.4-6.5 [facility] Comment on above: Performed By: #### C BC ####[facility] Gwixwmaaqg[address] [place] [id number]. Garima Pulliam Neutrophils/100 WBC (Bld) 72.4 % Normal 43.0-75.0 [facility] Comment on above: Performed By: #### C BC ####[facility] Irisjlclim[address] [place] [id number]. Garima Pulliam Platelet mean volume (Bld) [Entitic vol] 8.7 fL Critically low 9.5-13.5 [facility] Comment on above: Performed By: #### C BC ####[facility] Dxclevzkmu[address] [place] [id number]. Garima Pulliam PLT 184 103/ul Normal 150-450 [facility] Comment on above: Performed By: #### C BC ####[facility] A[address]lsvofn7573 [place], [place] [address]He. Garima Pulliam RBC 4.80 106/ul Normal 4.70-6.10 [facility] Comment on above: Performed By: #### C BC ####[facility] Pznvocdrhu8[address] [place] [id number]. Garima Pulliam WBC 10.8 103/ul Normal 4.0-11.0 [facility] Comment on above: Performed By: #### C BC ####[facility] Nillzkynzo1503 [place] [id number]. Garima Pulliam Cov[facility]-19 [facility]on [facility]24 SARS-CoV-2 (COVID-19) RNA MARIE+probe Ql (Unsp spec) Not detected Normal NOT DETECTED [facility] Comment on above: Result Comment: [...] for this test is supported by the Adapted Physical Education Teacher of Health and Human Service's [...] be used). Performed By: #### C VDTBH ####[facility] [address]rl[address] [place], [place] [address]Dr. Garima Pulliam INFLUENZA A AND B AGon 11-20 [facility] SEE BELOW Normal [facility] Comment on above: Result Comment: Nega tive for Flu A protein angiten. Infection due to Flu A cannot be ruled out. Flu A angiten in the sample may be below the detection limit of the test. Performed By: #### I NFLUAB ####[facility] [address] [place], [place] [address]Dr. Garima Pulliam INFLUBNEGH SEE BELOW Normal [facility] Comment on above: Result Comment: Nega tive for Flu B protein antigen. Infection due to Flu B cannot be ruled out. Flu B antigen in the sample may be below the detection limit of the test. Performed By: #### I NFLUAB ####[facility] Umkwrzhalk[address] [place], [place] [address]Dr. Garima Pulliam INFLUENZA A AG Negative Normal NEGATIVE SEE COMMENT [facility] Comment on above: Performed By: #### I NFLUAB ####[facility] Vgnwkjrlnb[address] [place], [place] [address]Dr. Garima [facility] INFLUENZA B AG Negative Normal NEGATIVE SEE COMMENT [facility] Comment on above: Performed By: #### I NFLUAB ####[facility] Guwcertujn[address] [place], [place] [address]Dr. Garima Pulliam PROF CHEM 8 (BAS METB)on Anion gap [Moles/Vol] 8.2 mmol/L Normal [facility] Comment on above: Performed By: #### B MP, HSTROPN, BNP ####[facility] Wtnoujmjfg3[address] [place] [address]Dr. Garima Pulliam Calcium [Mass/Vol] 8.7 mg/dL Normal 8.5-10.1 [facility] Comment on above: Performed By: #### B MP, HSTROPN, BNP ####[facility] Boldrcfhlb[address] [place] [address]Dr. Garima Pulliam Chloride [Moles/Vol] 103 mmol/L Normal 98-107 [facility] Comment on above: Performed By: #### B MP, HSTROPN, BNP ####[facility] Oadqgwlspo[address] [place], [place] [address]Dr. Garima Pulliam CO2 [Moles/Vol] 29.4 mmol/L Normal 21.0-32.0 [facility] Comment on above: Performed By: #### B MP, HSTROPN, BNP ####[facility] Nlpqnolywe[address] [place], [place] [address]Dr. Garima Pulliam Creatinine [Mass/Vol] 0.69 mg/dL Critically low 0.70-1.30 [facility] Comment on above: Performed By: #### B MP, HSTROPN, BNP ####[facility] Djklsmzcii[address] [place] [address]Dr. Garima Pulliam EGFR-AF PORTUGUESE >60 Normal >=60 [facility] Comment on above: Performed By: #### B MP, HSTROPN, BNP ####[facility] Ynwfoeps[address] [place], [place] [address]Dr. Garima Pulliam EGFR-NON AF PORTUGUESE >60 Normal >=60 [facility] Comment on above: Performed By: #### B MP, HSTROPN, BNP ####[facility] Nphukosqmx2[address] [place] [address]Dr. Garima Pulliam Glucose [Mass/Vol] 209 mg/dL Critically high 74-106 T [facility] Comment on above: Performed By: #### B MP, HSTROPN, BNP ####[facility] Adlqwuvjzi37[address] [place] [address]Dr. Garima Pulliam Potassium [Moles/Vol] 3.6 mmol/L Normal 3.5-5.1 [facility] Comment on above: Performed By: #### B MP, HSTROPN, BNP ####[facility] Coyfmdmppf65[address] [place] [address]Dr. Garima Pulliam Sodium [Moles/Vol] 137 mmol/L Normal 136-145 [facility] Comment on above: Performed By: #### B MP, HSTROPN, BNP ####[facility] Gwsczgwqfh7[address] [place] [address]Dr. Garima Pulliam Urea nitrogen [Mass/Vol] 11.0 mg/dL Normal 7.0-18.0 [facility] Comment on above: Performed By: #### B MP, HSTROPN, BNP ####[facility] Isamitmopb33[address] [place] [address]Dr. Garima Pulliam Urea nitrogen/Creatinine [Mass ratio] 15.9 mg/mg Normal [facility] Comment on above: Performed By: #### B MP, HSTROPN, BNP ####[facility] Vpvmwygmbt04[address] [place] [address]Dr. Garima Pulliam TROPONIN, HIGH SENSITIVITYon 11-20-2022 HSTROP [...] Performed By: #### B MP, HSTROPN, BNP ####[facility] Bzxzacodmb9204 [place] [address]Dr. Garima Pulliam XR CHEST 1 Von 11-20-2022 XR CHEST 1 V Normal [facility] XR CHEST 1 Von 10-02-2022 XR CHEST 1 V Normal [facility] BNPon 09-29-2022 Natriuretic peptide B (Bld) [Mass/Vol] 107.0 pg/mL Normal <=900.0 [facility] Comment on above: Performed By: #### C MP, BNP, CMADM ####[facility] Pajdlvxymp[address] [place] [address]Dr. Garima Pulliam CARDIAC NASH ADMITon 022 CK [Catalytic activity/Vol] 190 U/L Normal 39-308 [facility] Comment on above: Performed By: #### C MP, BNP, CMADM ####[facility] Tppqdhockj4593 [place] [address]Dr. Garima Heraclio CK.MB [Mass/Vol] 11.11 ng/mL Critically high <=3.60 [facility] Comment on above: Performed By: #### C MP, BNP, CMADM ####[facility] Nkuzddcuug7[address] [place] [address]Dr. Garima Pulliam HSTROP 11.8 pg/mL Normal 4.0-76.1 [facility] Comment on above: Result Comment: CUT- OFF POINTS HAVE BEEN ESTABLISHED BASED ON THE FOURTH UNIVERSAL DEFINITIONS OF MYOCARDIALINFARCTION. THE UPPER REFERENCE LIMIT (URL) OF TROPONIN, DEFINED THE 99TH PERCENTILE OFcTnI DISTRIBUTION IN A REFERENCE POPULATION, HAS BEEN CONFIRMED THE DECISION THRESHOLDFOR W[place] DIAGNOSIS. Performed By: #### C MP, BNP, CMADM ####[facility] Vmpjystfjo[address] [place] [address]Dr. Garima Pulliam DORIS 133 ng/mL Critically high 16-96 [facility] Comment on above: Performed By: #### C MP, BNP, CMADM ####[facility] Jbkhzgqrnt3193 [place] [address]Dr. Garima Heraclio CBC AUTO DIFFon 09-29-2022 BASO # 0.0 103/ul Normal 0.0-0.1 [facility] Comment on above: Performed By: #### C BC ####[facility] Hjvbqvycgz1858 [place] [address]Dr. Garima Heraclio Basophils/100 WBC (Bld) 0.2 % Normal 0.2-2.0 [facility] Comment on above: Performed By: #### C BC ####[facility] Vqksqkqhng73[address] [place] [id number]. Garima Pulliam EO # 0.1 103/ul Normal 0.0-0.7 [facility] Comment on above: Performed By: #### C BC ####[facility] Btaqdiehyh0953 [place] [id number]. Garima Pulliam Eosinophils/100 WBC (Bld) 1.4 % Normal 0.9-7.0 [facility] Comment on above: Performed By: #### C BC ####[facility] [address]zhteps[address] [place], [place] [address]Dr. Garima Pulliam Erythrocyte distribution width (RBC) [Ratio] 13.7 % Normal 11.0-15.0 [facility] Comment on above: Performed By: #### C BC ####[facility] [address]mutx[address] [place], [place] [address]Dr. Garima Pulliam Hematocrit (Bld) [Volume fraction] 45.4 % Normal 42.0-54.0 [facility] Comment on above: Performed By: #### C BC ####[facility] Dveebcesor[address] [place], [place] [address]Dr. Garima Pulliam Hemoglobin (Bld) [Mass/Vol] 14.8 g/dL Normal 14.0-18.0 [facility] Comment on above: Performed By: #### C BC ####[facility] [address]durksnywe[address] [place], [place] [address]Dr. Garima Pulliam IG # 0.04 10e3/ul Critically high 0.00-0.03 [facility] Comment on above: Performed By: #### C BC ####[facility] Yubbonlxgs[address] [place], [place] [address]Dr. aGrima Pulliam IG % 0.5 % Normal 0.0-0.5 [facility] Comment on above: Performed By: #### C BC ####[facility] Brinechxfm[address] [place], [place] [address]Dr. Garima Pulliam LYMPH # 1.1 103/ul Critically low 1.2-3.8 [facility] Comment on above: Performed By: #### C BC ####[facility] Oifqrhrzwn0633 [place] [id number]. Garima Pulliam Lymphocytes/100 WBC (Bld) 12.7 % Critically low 20.5-60.0 [facility] Comment on above: Performed By: #### C BC ####[facility] Cxmbymbtdj7958 [place] [id number]. Chapisrenu Pulliam MANUAL DIFF REQ NO Normal [facility] Comment on above: Performed By: #### C BC ####[facility] [address]ixz[address] [place], [place] [address]Dr. Garima Heraclio MCH (RBC) [Entitic mass] 30.0 pg Normal 25.9-34.0 [facility] Comment on above: Performed By: #### C BC ####[facility] [address]nqwelqnn[address] [place], [place] [address]Dr. Garima Heraclio MCHC (RBC) [Mass/Vol] 32.6 g/dL Normal 29.9-35.2 [facility] Comment on above: Performed By: #### C BC ####[facility] Itb[address]tohvi[address] [place], [place] [address]Dr. Garima Heraclio MCV (RBC) [Entitic vol] 91.9 fL Normal 80.0-94.0 [facility] Comment on above: Performed By: #### C BC ####[facility] [address]pyeelt[address] [place], [place] [address]Dr. Garima Pulliam MONO # 0.4 103/ul Normal 0.3-0.8 [facility] Comment on above: Performed By: #### C BC ####[facility] Uqsv[address] [place], [place] [address]Dr. Chapisrenu Pulliam Monocytes/100 WBC (Bld) 4.8 % Normal 1.7-12.0 [facility] Comment on above: Performed By: #### C BC ####[facility] [address]hrfe[address] [place], [place] [address]Dr. Garima Pulliam NEUT # 7.1 103/ul Critically high 1.4-6.5 [facility] Comment on above: Performed By: #### C BC ####[facility] Toxrdnvmzq2603 [place], [place] [address]Hg. Garima Pulliam Neutrophils/100 WBC (Bld) 80.4 % Critically high 43.0-75.0 [facility] Comment on above: Performed By: #### C BC ####[facility] Kqyegxbxav3276 [place] [id number]. Garima Pulliam Platelet mean volume (Bld) [Entitic vol] 9.1 fL Critically low 9.5-13.5 [facility] Comment on above: Performed By: #### C BC ####[facility] Rrwxkutzzp2895 [place] [id number]. Garima Pulliam PLT 200 103/ul Normal 150-450 [facility] Comment on above: Performed By: #### C BC ####[facility] Tjsthgdxzb7349 [place] [id number]. Garima Pulliam RBC 4.94 106/ul Normal 4.70-6.10 [facility] Comment on above: Performed By: #### C BC ####[facility] Mrkdqmcpcb1154 [place] [address]Dr. Garima Pulliam WBC 8.9 103/ul Normal 4.0-11.0 [facility] Comment on above: Performed By: #### C BC ####[facility] Jgnijmwduz9[address] [place] [id number]. Garima Pulliam Covid-19 PCR (CVDTB)on SARS-CoV-2 (COVID-19) RNA MARIE+probe Ql (Unsp spec) Not detected Normal NOT DETECTED [facility] Comment on above: Result Comment: [...] for this test is supported by the [place] of Health and Human Service's declaration that [...] be used). Performed By: #### C VDTBH ####[facility] Zbfrxmxnue9464 [place] [address]Dr. Garima Pulliam LACTATE/LACTIC ACIDon 2021 Lactate [Moles/Vol] 1.7 mmol/L Normal 0.4-1.9 [facility] Comment on above: Performed By: #### L ACT ####[facility] Xernigz[address] [place], [place] [address]Dr. Garima Pulliam PROF 14(COMP METB)on 022 Albumin [Mass/Vol] 3.8 g/dL Normal 3.4-5.0 [facility] Comment on above: Performed By: #### C MP, BNP, CMADM ####[facility] [address]cerfovwj[address] [place], [place] [address]Dr. Garima Pulliam Albumin/Globulin [Mass ratio] 1.5 {ratio} Normal [facility] Comment on above: Performed By: #### C MP, BNP, CMADM ####[facility] Etuvkgfjns[address] [place] [address]Dr. Garima Pulliam ALP [Catalytic activity/Vol] 62 U/L Normal 46-116 [facility] Comment on above: Performed By: #### C MP, BNP, CMADM ####[facility] Oyfmckjaek4408 [place] [address]Dr. Garima Pulliam ALT [Catalytic activity/Vol] 37 U/L Normal 16-63 [facility] Comment on above: Performed By: #### C MP, BNP, CMADM ####[facility] Vlhxndivdl6517 [place] [address]Dr. Garima Pulliam Anion gap [Moles/Vol] 8.0 mmol/L Normal [facility] Comment on above: Performed By: #### C MP, BNP, CMADM ####[facility] Pywvsmbslt7910 [place] [address]Dr. Garima Pulliam AST [Catalytic activity/Vol] 20 U/L Normal 15-37 [facility] Comment on above: Performed By: #### C MP, BNP, CMADM ####[facility] Xawolspudb0249 [place] [address]Dr. Garima Pulliam Bilirubin [Mass/Vol] 0.6 mg/dL Normal 0.2-1.0 [facility] Comment on above: Performed By: #### C MP, BNP, CMADM ####[facility] Ntucebudbe6994 [place] [address]Dr. Garima Pulliam Calcium [Mass/Vol] 9.1 mg/dL Normal 8.5-10.1 [facility] Comment on above: Performed By: #### C MP, BNP, CMADM ####[facility] Asmodasaut[address] [place], [place] [address]Dr. Garima Pulliam Chloride [Moles/Vol] 103 mmol/L Normal 98-107 [facility] Comment on above: Performed By: #### C MP, BNP, CMADM ####[facility] [address]dzx[address] [place], [place] [address]Dr. Garima Pulliam CO2 [Moles/Vol] 31.8 mmol/L Normal 21.0-32.0 [facility] Comment on above: Performed By: #### C MP, BNP, CMADM ####[facility] [address]udcm[address] [place], [place] [address]Dr. Garima Pulliam Creatinine [Mass/Vol] 0.63 mg/dL Critically low 0.70-1.30 [facility] Comment on above: Performed By: #### C MP, BNP, CMADM ####[facility] [address]ozryqsbrc[address] [place], [place] [address]Dr. Garima Pulliam EGFR-AF PORTUGUESE >60 Normal >=60 [facility] Comment on above: Performed By: #### C MP, BNP, CMADM ####[facility] [address]dwo[address] [place], [place] [address]Dr. Garima Pulliam EGFR-NON AF PORTUGUESE >60 Normal >=60 [facility] Comment on above: Performed By: #### C MP, BNP, CMADM ####[facility] Tpxqimvpyo8277 [place] [address]Dr. Garima Pulliam Globulin (S) [Mass/Vol] 2.6 g/dL Normal [facility] Comment on above: Performed By: #### C MP, BNP, CMADM ####[facility] Summinnhaf8022 [place] [address]Dr. Garima Pulliam Glucose [Mass/Vol] 103 mg/dL Normal 74-106 [facility] Comment on above: Performed By: #### C MP, BNP, CMADM ####[facility] Rshognmcaw6717 [place] [address]Dr. Garima Pulliam Potassium [Moles/Vol] 3.8 mmol/L Normal 3.5-5.1 [facility] Comment on above: Performed By: #### C MP, BNP, CMADM ####[facility] Enivspswyw3601 [place] [address]Dr. Garima Pulliam Protein [Mass/Vol] 6.4 g/dL Normal 6.4-8.2 [facility] Comment on above: Performed By: #### C MP, BNP, CMADM ####[facility] Rmioxprmmq9009 [place] [address]Dr. Garima Pulliam Sodium [Moles/Vol] 139 mmol/L Normal 136-145 [facility] Comment on above: Performed By: #### C MP, BNP, CMADM ####[facility] Cmnswlpupt0610 [place] [address]Dr. Garima Pulliam Urea nitrogen [Mass/Vol] 7.0 mg/dL Normal 7.0-18.0 [facility] Comment on above: Performed By: #### C MP, BNP, CMADM ####[facility] Fwdsxhmnly2617 [place] [address]Dr. Garima Pulliam Urea nitrogen/Creatinine [Mass ratio] 11.1 mg/mg Normal [facility] Comment on above: Performed By: #### C MP, BNP, CMADM ####[facility] Xebhsjdkty8506 [place] [address]Dr. Garima Pulliam PROTIMEon 09-29-2022 INR Coag (PPP) [Relative time] 1.14 {INR} Normal [facility] Comment on above: Performed By: #### P T, PTT ####[facility] [address]ircmpub[address] [place], [place] [address]Dr. Garima Pulliam INR GUIDELINES SEE BELOW Normal [facility] Comment on above: Result Comment: WESLEY RED INR: 2.0 - 3.0 CONDITIONS NOT LISTED BELOW 2.5 - 3.5 FOR PROSTHETIC HEART VALVE REPLACEMENT 2.5 - 3.5 RECURRENT THROMBOSIS Performed By: #### P T, PTT ####[facility] [address]oaeyvfb[address] [place], [place] [address]Dr. Garima Pulliam PT Coag (PPP) [Time] 12.2 s Critically high 9.0-11.6 [facility] Comment on above: Performed By: #### P T, PTT ####[facility] Fuxjzcuo[address] [place], [place] [address]Dr. Garima Pulliam PTTon 09-29-2022 aPTT Coag (Bld) [Time] 29.3 s Normal 22.3-36.2 [facility] Comment on above: Performed By: #### P T, PTT ####[facility] Nifmoirrin[address] [place], [place] [address]Dr. Garima Pulliam XR CHEST 1 Von 09-29-2022 XR CHEST 1 V Normal [facility] CBC AUTO DIFFon 09-26-2022 BASO # 0.0 103/ul Normal 0.0-0.1 [facility] Comment on above: Performed By: #### C BC ####[facility] Ky[address]ryt[address] [place], [place] [address]Dr. Garima Pulliam Basophils/100 WBC (Bld) 0.2 % Normal 0.2-2.0 [facility] Comment on above: Performed By: #### C BC ####[facility] Avmjhugrvy[address] [place], [place] [address]Dr. Garima Pulliam EO # 0.1 103/ul Normal 0.0-0.7 [facility] Comment on above: Performed By: #### C BC ####[facility] S[address]xb[address] [place], [place] [address]Dr. Garima Pulliam Eosinophils/100 WBC (Bld) 1.0 % Normal 0.9-7.0 [facility] Comment on above: Performed By: #### C BC ####[facility] Eeyxoesdwb[address] [place], [place] [address]Dr. Garima Pulliam Erythrocyte distribution width (RBC) [Ratio] 13.4 % Normal 11.0-15.0 [facility] Comment on above: Performed By: #### C BC ####[facility] Crohmbjitv[address] [place], [place] [address]Dr. Garima Pulliam Hematocrit (Bld) [Volume fraction] 46.3 % Normal 42.0-54.0 [facility] Comment on above: Performed By: #### C BC ####[facility] Yncwyspqmy[address] [place], [place] [address]Dr. Garima Pulliam Hemoglobin (Bld) [Mass/Vol] 15.3 g/dL Normal 14.0-18.0 [facility] Comment on above: Performed By: #### C BC ####[facility] [address]zhsw[address] [place], [place] [address]Dr. Garima Pulliam IG # 0.05 10e3/ul Critically high 0.00-0.03 [facility] Comment on above: Performed By: #### C BC ####[facility] Fusgrnbwxr[address] [place], [place] [address]Dr. Garima Pulliam IG % 0.4 % Normal 0.0-0.5 [facility] Comment on above: Performed By: #### C BC ####[facility] Rkyp[address]tyky[address] [place], [place] [address]Dr. Garima Pulliam LYMPH # 1.7 103/ul Normal 1.2-3.8 [facility] Comment on above: Performed By: #### C BC ####[facility] Ynbgkvnhwt[address] [place], [place] [address]Dr. Garima Pulliam Lymphocytes/100 WBC (Bld) 12.7 % Critically low 20.5-60.0 [facility] Comment on above: Performed By: #### C BC ####[facility] Awaytlgzwl4312 [place] [address]DrAdalberto Pulliam MANUAL DIFF REQ NO Normal [facility] Comment on above: Performed By: #### C BC ####[facility] Qegcuaurvf3907 [place] [address]Dr. Garima Pulliam MCH (RBC) [Entitic mass] 30.1 pg Normal 25.9-34.0 [facility] Comment on above: Performed By: #### C BC ####[facility] Eadftdvoag[address] [place], [place] [address]Dr. Garima Pulliam MCHC (RBC) [Mass/Vol] 33.0 g/dL Normal 29.9-35.2 [facility] Comment on above: Performed By: #### C BC ####[facility] P[address]tsnfzs[address] [place], [place] [address]DrAdalberto Pulliam MCV (RBC) [Entitic vol] 91.1 fL Normal 80.0-94.0 [facility] Comment on above: Performed By: #### C BC ####[facility] [address]nbutlb[address] [place], [place] [address]DrAdalberto Pulliam MONO # 0.9 103/ul Critically high 0.3-0.8 [facility] Comment on above: Performed By: #### C BC ####[facility] [address] [place], [place] [address]DrAdalberto Pulliam Monocytes/100 WBC (Bld) 7.0 % Normal 1.7-12.0 [facility] Comment on above: Performed By: #### C BC ####[facility] [address]idexixc[address] [place], [place] [address]DrAdalberto Pulliam NEUT # 10.4 103/ul Critically high 1.4-6.5 [facility] Comment on above: Performed By: #### C BC ####[facility] [address]oddeehbry[address] [place], [place] [address]DrAdalberto Pulliam Neutrophils/100 WBC (Bld) 78.7 % Critically high 43.0-75.0 [facility] Comment on above: Performed By: #### C BC ####[facility] Bxuxykedfn3601 [place] [address]Dr. Garima Pulliam Platelet mean volume (Bld) [Entitic vol] 8.9 fL Critically low 9.5-13.5 [facility] Comment on above: Performed By: #### C BC ####[facility] Ywgdhbkbhq7[address] [place] [address]Dr. Garima Pulliam PLT 195 103/ul Normal 150-450 [facility] Comment on above: Performed By: #### C BC ####[facility] Xfunodurmm[address] [place], [place] [address]Dr. Garima Pulliam RBC 5.08 106/ul Normal 4.70-6.10 [facility] Comment on above: Performed By: #### C BC ####[facility] Cqbxwyccqr[address] [place], [place] [address]Dr. Garima Pulliam WBC 13.2 103/ul Critically high 4.0-11.0 [facility] Comment on above: Performed By: #### C BC ####[facility] Bauxmbli[address] [place], [place] [address]Dr. Garima Pulliam PROF 14(COMP METB)on 022 Albumin [Mass/Vol] 3.5 g/dL Normal 3.4-5.0 [facility] Comment on above: Performed By: #### C DAVID HSTROPN ####[facility] [address]xurrsnovo[address] [place] [address]Dr. Garima Pulliam Albumin/Globulin [Mass ratio] 1.2 {ratio} Normal [facility] Comment on above: Performed By: #### C RAFAT HERNANDEZTROPN ####[facility] Facugfkbcj[address] [place] [address]Dr. Garima Pulliam ALP [Catalytic activity/Vol] 71 U/L Normal 46-116 [facility] Comment on above: Performed By: #### C DAVID HSTROPN ####[facility] Qjzpxezrkb[address] [place] [address]Dr. Garima Pulliam ALT [Catalytic activity/Vol] 37 U/L Normal 16-63 [facility] Comment on above: Performed By: #### C DAVID, HSTROPN ####[facility] Vtjwexswcf5602 [place] [address]Dr. Garima Pulliam Anion gap [Moles/Vol] 4.8 mmol/L Normal [facility] Comment on above: Performed By: #### C DAVID, HSTROPN ####[facility] Majcpncxk[address] [place], [place] [address]Dr. Garima Pulliam AST [Catalytic activity/Vol] 21 U/L Normal 15-37 [facility] Comment on above: Performed By: #### C DAVID, HSTROPN ####[facility] Ozuxdkttvd[address] [place], [place] [address]Dr. Garima Pulliam Bilirubin [Mass/Vol] 0.3 mg/dL Normal 0.2-1.0 [facility] Comment on above: Performed By: #### C DAVID, HSTROPN ####[facility] Nvdwcyedog6824 [place] [address]Dr. Garima Pulliam Calcium [Mass/Vol] 8.9 mg/dL Normal 8.5-10.1 [facility] Comment on above: Performed By: #### C DAVID, HSTROPN ####[facility] Tkcvvhtaqh0825 [place] [address]Dr. Garima Pulliam Chloride [Moles/Vol] 106 mmol/L Normal 98-107 [facility] Comment on above: Performed By: #### C DAVID, HSTROPN ####[facility] Dbvzhqwzck7986 [place] [address]Dr. Garima Pulliam CO2 [Moles/Vol] 29.8 mmol/L Normal 21.0-32.0 [facility] Comment on above: Performed By: #### C DAVID, HSTROPN ####[facility] Iesvvavjaf8477 [place] [address]Dr. Garima Pulliam Creatinine [Mass/Vol] 0.68 mg/dL Critically low 0.70-1.30 [facility] Comment on above: Performed By: #### C MP, HSTROPN ####[facility] Hrnnnimnac15[address] [place] [address]Dr. Garima Pulliam EGFR-AF PORTUGUESE >60 Normal >=60 [facility] Comment on above: Performed By: #### C MP, HSTROPN ####[facility] Xnimzabftz7751 [place] [address]Dr. Chapislan Pulliam EGFR-NON AF PORTUGUESE >60 Normal >=60 [facility] Comment on above: Performed By: #### C MP, HSTROPN ####[facility] Pchgxvinen08[address] [place] [address]Dr. Garima Pulliam Globulin (S) [Mass/Vol] 2.8 g/dL Normal [facility] Comment on above: Performed By: #### C MP, HSTROPN ####[facility] Gbgvgqdcea1291 [place] [address]Dr. Garima Pulliam Glucose [Mass/Vol] 133 mg/dL Critically high 74-106 [facility] Comment on above: Performed By: #### C MP, HSTROPN ####[facility] Cwkagrywzs1734 [place] [address]Dr. Chapisrenu Pulliam Potassium [Moles/Vol] 3.6 mmol/L Normal 3.5-5.1 [facility] Comment on above: Performed By: #### C MP, HSTROPN ####[facility] Ppnrjgoijt0590 [place] [address]Dr. Chapisrenu Pulliam Protein [Mass/Vol] 6.3 g/dL Critically low 6.4-8.2 [facility] Comment on above: Performed By: #### C MP, HSTROPN ####[facility] [address]axgmssgwz[address] [place], [place] [address]Dr. Chapisrenu Pulliam Sodium [Moles/Vol] 137 mmol/L Normal 136-145 [facility] Comment on above: Performed By: #### C MP, HSTROPN ####[facility] Snsnofwfgt[address] [place], [place] [address]Dr. Garima Pulliam Urea nitrogen [Mass/Vol] 15.0 mg/dL Normal 7.0-18.0 [facility] Comment on above: Performed By: #### C DAVID HSTROPN ####[facility] Omcclxxvrq0837 [place] [address]Dr. Chapisrenu Pulliam Urea nitrogen/Creatinine [Mass ratio] 22.1 mg/mg Normal [facility] Comment on above: Performed By: #### C DAVID HSTROPN ####[facility] Eswmzsqjck7752 [place] [address]Dr. Garima Heraclio TROPONIN, HIGH SENSITIVITYon 09-26-2022 HSTROP 12.8 pg/mL Normal 4.0-76.1 [facility] Comment on above: Result Comment: CUT- OFF POINTS HAVE BEEN ESTABLISHED BASED ON THE FOURTH UNIVERSAL DEFINITIONS OF MYOCARDIALINFARCTION. THE UPPER REFERENCE LIMIT (URL) OF TROPONIN, DEFINED THE 99TH PERCENTILE OFcTnI DISTRIBUTION IN A REFERENCE POPULATION, HAS BEEN CONFIRMED THE DECISION THRESHOLDFOR [place] DIAGNOSIS. Performed By: #### C DAVID HSTROPN ####[facility] Yrsrgpqraz9404 [place] [address]Dr. Chapisrenu Pulliam XR CHEST 1 Von 09-26-2022 XR CHEST 1 V Normal [facility] XR CHEST 1 Von 09-16-2022 XR CHEST 1 V Normal [facility] CBC AUTO DIFFon 09-15-2022 BASO # 0.0 103/ul Normal 0.0-0.1 [facility] Comment on above: Performed By: #### C BC ####[facility] Pdecsegkxk9107 [place] [address]Dr. Garima Heraclio Basophils/100 WBC (Bld) 0.1 % Critically low 0.2-2.0 [facility] Comment on above: Performed By: #### C BC ####[facility] Zgnrmilcsl7241 [place] [address]Dr. Garima Pulliam EO # 0.0 103/ul Normal 0.0-0.7 [facility] Comment on above: Performed By: #### C BC ####[facility] Akrnwmkfhm9623 [place] [address]Dr. Garima Pulliam Eosinophils/100 WBC (Bld) 0.1 % Critically low 0.9-7.0 [facility] Comment on above: Performed By: #### C BC ####[facility] Purqxkoqiq0991 [place] [address]Dr. Garima Pulliam Erythrocyte distribution width (RBC) [Ratio] 14.1 % Normal 11.0-15.0 [facility] Comment on above: Performed By: #### C BC ####[facility] Vdxqwlccfr[address] [place], [place] [address]Dr. Garima Pulliam Hematocrit (Bld) [Volume fraction] 46.1 % Normal 42.0-54.0 [facility] Comment on above: Performed By: #### C BC ####[facility] Zihcynjqxn[address] [place], [place] [address]Dr. Garima Pulliam Hemoglobin (Bld) [Mass/Vol] 15.0 g/dL Normal 14.0-18.0 [facility] Comment on above: Performed By: #### C BC ####[facility] Mtxxguvxtq[address] [place], [place] [address]Dr. Garima Pulliam IG # 0.03 10e3/ul Normal 0.00-0.03 [facility] Comment on above: Performed By: #### C BC ####[facility] Zirgzavofw[address] [place], [place] [address]Dr. Garima Pulliam IG % 0.3 % Normal 0.0-0.5 [facility] Comment on above: Performed By: #### C BC ####[facility] Ugllvuexqy[address] [place], [place] [address]Dr. Garima Pulliam LYMPH # 0.6 103/ul Critically low 1.2-3.8 [facility] Comment on above: Performed By: #### C BC ####[facility] Xkikhpfgsl[address] [place], [place] [address]Dr. Garima Pulliam Lymphocytes/100 WBC (Bld) 5.8 % Critically low 20.5-60.0 [facility] Comment on above: Performed By: #### C BC ####[facility] M[address]igbtej2[address] [place] [id number]. Garima Pulliam MANUAL DIFF REQ NO Normal [facility] Comment on above: Performed By: #### C BC ####[facility] Attnzycxfp9[address] [place] [id number]. Garima Pulliam MCH (RBC) [Entitic mass] 30.2 pg Normal 25.9-34.0 [facility] Comment on above: Performed By: #### C BC ####[facility] Yfeohwzjgx9478 [place] [address]Dr. Garima Pulliam MCHC (RBC) [Mass/Vol] 32.5 g/dL Normal 29.9-35.2 [facility] Comment on above: Performed By: #### C BC ####[facility] Fhtmgziuzh7683 [place] [address]Dr. Garima Pulliam MCV (RBC) [Entitic vol] 92.8 fL Normal 80.0-94.0 [facility] Comment on above: Performed By: #### C BC ####[facility] Eqsmqfbkgc3418 [place] [address]Dr. Garima Heraclio MONO # 0.3 103/ul Normal 0.3-0.8 [facility] Comment on above: Performed By: #### C BC ####[facility] Zhhhczigjd6028 [place] [id number]. Garima Heraclio Monocytes/100 WBC (Bld) 3.2 % Normal 1.7-12.0 [facility] Comment on above: Performed By: #### C BC ####[facility] Oknohvaiea5280 [place] [id number]. Garima Pulliam NEUT # 9.8 103/ul Critically high 1.4-6.5 [facility] Comment on above: Performed By: #### C BC ####[facility] Oydfmheycg9125 [place] [id number]. Garima Pulliam Neutrophils/100 WBC (Bld) 90.5 % Critically high 43.0-75.0 [facility] Comment on above: Performed By: #### C BC ####[facility] Chcqcfrxfr1843 [place] [id number]. Garima Pulliam Platelet mean volume (Bld) [Entitic vol] 9.4 fL Critically low 9.5-13.5 [facility] Comment on above: Performed By: #### C BC ####[facility] Caixcsfght1463 [place] [id number]. Garima Pulliam PLT 208 103/ul Normal 150-450 [facility] Comment on above: Performed By: #### C BC ####[facility] Parpgudodo4690 [place] [address]Dr. Garima Pulliam RBC 4.97 106/ul Normal 4.70-6.10 [facility] Comment on above: Performed By: #### C BC ####[facility] Dbtylkrynn2058 [place] [address]Dr. Garima Pulliam WBC 10.8 103/ul Normal 4.0-11.0 [facility] Comment on above: Performed By: #### C BC ####[facility] Loiwloxpyg9290 [place] [address]Dr. Garima Pulliam PROF 14(COMP METB)on 022 Albumin [Mass/Vol] 4.0 g/dL Normal 3.4-5.0 [facility] Comment on above: Performed By: #### C MP ####[facility] Dlrfiblrys1577 [place] [address]Dr. Garima Pulliam Albumin/Globulin [Mass ratio] 1.5 {ratio} Normal [facility] Comment on above: Performed By: #### C MP ####[facility] Qqsvlqxvrd8465 [place] [address]Dr. Garima Pulliam ALP [Catalytic activity/Vol] 73 U/L Normal 46-116 [facility] Comment on above: Performed By: #### C MP ####[facility] Htngnhemjq6210 [place] [address]Dr. Garima Pulliam ALT [Catalytic activity/Vol] 42 U/L Normal 16-63 [facility] Comment on above: Performed By: #### C MP ####[facility] Yaritrdcee1023 [place] [address]Dr. Garima Pulliam Anion gap [Moles/Vol] 9.1 mmol/L Normal [facility] Comment on above: Performed By: #### C MP ####[facility] [address]qmug[address]obho[address] [place], [place] [address]Dr. Garima Pulliam AST [Catalytic activity/Vol] 28 U/L Normal 15-37 [facility] Comment on above: Performed By: #### C MP ####[facility] Dxzlkmggkb[address] [place], [place] [address]Dr. Garima Pulliam Bilirubin [Mass/Vol] 0.6 mg/dL Normal 0.2-1.0 [facility] Comment on above: Performed By: #### C MP ####[facility] Gkgrkyzuon[address] [place], [place] [address]Dr. Garima Pluliam Calcium [Mass/Vol] 8.6 mg/dL Normal 8.5-10.1 [facility] Comment on above: Performed By: #### C MP ####[facility] Zkbvwcvfuq[address] [place], [place] [address]Dr. Garima Pulliam Chloride [Moles/Vol] 105 mmol/L Normal 98-107 [facility] Comment on above: Performed By: #### C MP ####[facility] Rsyvxfpkly[address] [place], [place] [address]Dr. Garima Pulliam CO2 [Moles/Vol] 28.5 mmol/L Normal 21.0-32.0 [facility] Comment on above: Performed By: #### C MP ####[facility] Uvmhyjvfbh[address] [place], [place] [address]Dr. Garima Heraclio Creatinine [Mass/Vol] 0.78 mg/dL Normal 0.70-1.30 [facility] Comment on above: Performed By: #### C MP ####[facility] Qdnwzvqiyt[address] [place], [place] [address]Dr. Chapisrenu Heraclio EGFR-AF PORTUGUESE >60 Normal >=60 [facility] Comment on above: Performed By: #### C MP ####[facility] Fssrilchyv[address] [place], [place] [address]Dr. Garima Pulliam EGFR-NON AF PORTUGUESE >60 Normal >=60 [facility] Comment on above: Performed By: #### C MP ####[facility] Iszjzytrqf1631 [place] [address]Dr. Garima Pulliam Globulin (S) [Mass/Vol] 2.7 g/dL Normal [facility] Comment on above: Performed By: #### C MP ####[facility] Tohhdgblfg8195 [place] [address]Dr. Garima Pulliam Glucose [Mass/Vol] 220 mg/dL Critically high 74-106 [facility] Comment on above: Performed By: #### C MP ####[facility] Elfvuhizkw0152 [place] [address]Dr. Garima Pulliam Potassium [Moles/Vol] 3.6 mmol/L Normal 3.5-5.1 [facility] Comment on above: Performed By: #### C MP ####[facility] Gicvhpgawv[address] [place], [place] [address]Dr. Garima Pulliam Protein [Mass/Vol] 6.7 g/dL Normal 6.4-8.2 [facility] Comment on above: Performed By: #### C MP ####[facility] Ztw[address]jfrsv[address] [place], [place] [address]Dr. Garima Pulliam Sodium [Moles/Vol] 139 mmol/L Normal 136-145 [facility] Comment on above: Performed By: #### C MP ####[facility] Lczpgocitx[address] [place], [place] [address]Dr. Garima Pulliam Urea nitrogen [Mass/Vol] 11.0 mg/dL Normal 7.0-18.0 [facility] Comment on above: Performed By: #### C MP ####[facility] Ynoiovouaz[address] [place], [place] [address]Dr. Garima Pulliam Urea nitrogen/Creatinine [Mass ratio] 14.1 mg/mg Normal [facility] Comment on above: Performed By: #### C MP ####[facility] Oykqceltjd[address] [place], [place] [address]Dr. Garima Pulliam CARDIAC NASH 3-6on 2 CK [Catalytic activity/Vol] 240 U/L Normal 39-308 [facility] Comment on above: Performed By: #### C MREP ####[facility] Oxnsacxzzt2726 [place] [address]Dr. Garima Pulliam CK.MB [Mass/Vol] 10.38 ng/mL Critically high <=3.60 [facility] Comment on above: Performed By: #### C MREP ####[facility] Gilpgbieia4739 [place] [address]Dr. Garima Pulliam HSTROP 18.5 pg/mL Normal 4.0-76.1 [facility] Comment on above: Result Comment: CUT- OFF POINTS HAVE BEEN ESTABLISHED BASED ON THE FOURTH UNIVERSAL DEFINITIONS OF MYOCARDIALINFARCTION. THE UPPER REFERENCE LIMIT (URL) OF TROPONIN, DEFINED THE 99TH PERCENTILE OFcTnI DISTRIBUTION IN A REFERENCE POPULATION, HAS BEEN CONFIRMED THE DECISION THRESHOLDFOR [place] DIAGNOSIS. Performed By: #### C MREP ####[facility] Znvuethhrp4365 [place] [address]Dr. Garima Pulliam CK [Catalytic activity/Vol] 257 U/L Normal 39-308 [facility] Comment on above: Performed By: #### C MREP ####[facility] Ooitfmzesk[address] [place], [place] [address]Dr. Garima Pulliam CK.MB [Mass/Vol] 9.89 ng/mL Critically high <=3.60 [facility] Comment on above: Performed By: #### C MREP ####[facility] Diiqzhxjsw[address] [place], [place] [address]Dr. Garima Pulliam HSTROP 16.9 pg/mL Normal 4.0-76.1 [facility] Comment on above: Result Comment: CUT- OFF POINTS HAVE BEEN ESTABLISHED BASED ON THE FOURTH UNIVERSAL DEFINITIONS OF MYOCARDIALINFARCTION. THE UPPER REFERENCE LIMIT (URL) OF TROPONIN, DEFINED THE 99TH PERCENTILE OFcTnI DISTRIBUTION IN A REFERENCE POPULATION, HAS BEEN CONFIRMED THE DECISION THRESHOLDFOR [place] DIAGNOSIS. Performed By: #### C MREP ####[facility] Zaexdqcedn6527 [place] [address]Dr. Garima Heraclio CBC AUTO DIFFon 10-22-2022 BASO # 0.0 103/ul Normal 0.0-0.1 [facility] Comment on above: Performed By: #### C BC ####[facility] Vjighqprrk0866 [place] [id number]. Garima Pulliam Basophils/100 WBC (Bld) 0.1 % Critically low 0.2-2.0 [facility] Comment on above: Performed By: #### C BC ####[facility] Ytddlzkezy8111 [place] [address]Dr. Garima Pulliam EO # 0.0 103/ul Normal 0.0-0.7 [facility] Comment on above: Performed By: #### C BC ####[facility] [address]vljuhfj[address] [place], [place] [address]Dr. Chapisrenu Heraclio Eosinophils/100 WBC (Bld) 0.0 % Critically low 0.9-7.0 [facility] Comment on above: Performed By: #### C BC ####[facility] Ocdakrsouk[address] [place], [place] [address]Dr. Garima Pulliam Erythrocyte distribution width (RBC) [Ratio] 13.6 % Normal 11.0-15.0 [facility] Comment on above: Performed By: #### C BC ####[facility] Xgzfqqdqyg[address] [place], [place] [address]Dr. Garima Pulliam Hematocrit (Bld) [Volume fraction] 48.2 % Normal 42.0-54.0 [facility] Comment on above: Performed By: #### C BC ####[facility] Aalfbfyglq[address] [place], [place] [address]Dr. Garima Pulliam Hemoglobin (Bld) [Mass/Vol] 16.0 g/dL Normal 14.0-18.0 [facility] Comment on above: Performed By: #### C BC ####[facility] Gxhxruzdnj[address] [place], [place] [address]Dr. Chapisrenu Heraclio IG # 0.02 10e3/ul Normal 0.00-0.03 [facility] Comment on above: Performed By: #### C BC ####[facility] Ehxaowxwev4854 [place] [id number]. Garima Pulliam IG % 0.3 % Normal 0.0-0.5 [facility] Comment on above: Performed By: #### C BC ####[facility] Dnwsfupjrk2268 [place] [address]Dr. Garima Heraclio LYMPH # 0.5 103/ul Critically low 1.2-3.8 [facility] Comment on above: Performed By: #### C BC ####[facility] Ayvioghsad5844 [place] [address]Dr. Garima Heraclio Lymphocytes/100 WBC (Bld) 7.7 % Critically low 20.5-60.0 [facility] Comment on above: Performed By: #### C BC ####[facility] H[address]lsgiwcaq[address] [place], [place] [address]Dr. Chapisrenu Pulliam MANUAL DIFF REQ NO Normal [facility] Comment on above: Performed By: #### C BC ####[facility] Nxoiogwpgz[address] [place], [place] [address]Dr. Garima Heraclio MCH (RBC) [Entitic mass] 30.6 pg Normal 25.9-34.0 [facility] Comment on above: Performed By: #### C BC ####[facility] W[address]tylxvtn[address] [place], [place] [address]Dr. Garima Pulliam MCHC (RBC) [Mass/Vol] 33.2 g/dL Normal 29.9-35.2 [facility] Comment on above: Performed By: #### C BC ####[facility] Uvauauycfs[address] [place], [place] [address]Dr. Garima Heraclio MCV (RBC) [Entitic vol] 92.2 fL Normal 80.0-94.0 [facility] Comment on above: Performed By: #### C BC ####[facility] [address]ioqefcsww[address] [place], [place] [address]Dr. Garima Pulliam MONO # 0.0 103/ul Critically low 0.3-0.8 [facility] Comment on above: Performed By: #### C BC ####[facility] Bxyobubrtk4832 [place] [id number]. Garima Pulliam Monocytes/100 WBC (Bld) 0.4 % Critically low 1.7-12.0 [facility] Comment on above: Performed By: #### C BC ####[facility] Qrngxsbplx2298 [place] [id number]. Garima Pulliam NEUT # 6.2 103/ul Normal 1.4-6.5 [facility] Comment on above: Performed By: #### C BC ####[facility] Dfigoccvib5241 [place] [address]Dr. Garima Pulliam Neutrophils/100 WBC (Bld) 91.5 % Critically high 43.0-75.0 [facility] Comment on above: Performed By: #### C BC ####[facility] Udyvwymovn1419 [place] [address]Dr. Garima Pulliam Platelet mean volume (Bld) [Entitic vol] 8.7 fL Critically low 9.5-13.5 [facility] Comment on above: Performed By: #### C BC ####[facility] Upubvuusei0515 [place] [address]Dr. Garima Pulliam PLT 179 103/ul Normal 150-450 [facility] Comment on above: Performed By: #### C BC ####[facility] Sjvgjehyay9296 [place] [id number]. Garima Pulliam RBC 5.23 106/ul Normal 4.70-6.10 [facility] Comment on above: Performed By: #### C BC ####[facility] Bozrgplxvo6771 [place] [address]Dr. Garima Pulliam WBC 6.7 103/ul Normal 4.0-11.0 [facility] Comment on above: Performed By: #### C BC ####[facility] Mqziirjbze0993 [place] [address]Dr. Garima Pulliam PROF CHEM 8 (BAS METB)on Anion gap [Moles/Vol] 12.1 mmol/L Normal Th [facility] Comment on above: Performed By: #### B MP ####[facility] Fmhmmxlzix0230 [place] [id number]. Garima Pulliam Calcium [Mass/Vol] 8.7 mg/dL Normal 8.5-10.1 [facility] Comment on above: Performed By: #### B MP ####[facility] Cfgzhonmhi9809 [place] [id number]. Garima Pulliam Chloride [Moles/Vol] 105 mmol/L Normal 98-107 [facility] Comment on above: Performed By: #### B MP ####[facility] Rgfaadvgte3550 [place] [id number]. Garima Pulliam CO2 [Moles/Vol] 25.5 mmol/L Normal 21.0-32.0 [facility] Comment on above: Performed By: #### B MP ####[facility] Wzenaetcwo3275 [place] [address]Dr. Garima Pulliam Creatinine [Mass/Vol] 0.63 mg/dL Critically low 0.70-1.30 [facility] Comment on above: Performed By: #### B MP ####[facility] Outolcgorx1824 [place] [address]Dr. Garima Pulliam EGFR-AF PORTUGUESE >60 Normal >=60 [facility] Comment on above: Performed By: #### B MP ####[facility] Rnpqojnjmq7972 [place] [address]Dr. Garima Pulliam EGFR-NON AF PORTUGUESE >60 Normal >=60 [facility] Comment on above: Performed By: #### B MP ####[facility] Fznthlpmeu1820 [place] [address]Dr. Garima Pulliam Glucose [Mass/Vol] 162 mg/dL Critically high 74-106 [facility] Comment on above: Performed By: #### B MP ####[facility] [address]kele[address] [place], [place] [address]Dr. Garima Pulliam Potassium [Moles/Vol] 3.6 mmol/L Normal 3.5-5.1 [facility] Comment on above: Performed By: #### B MP ####[facility] Ayjesvrkrd[address] [place], [place] [address]Dr. Garima Pulliam Sodium [Moles/Vol] 139 mmol/L Normal 136-145 [facility] Comment on above: Performed By: #### B DAVID ####[facility] Ocdmshprtj7012 [place] [address]Dr. Garima Pulliam Urea nitrogen [Mass/Vol] 9.0 mg/dL Normal 7.0-18.0 [facility] Comment on above: Performed By: #### B DAVID ####[facility] Avbwqrqwrg4573 [place] [address]Dr. Garima Pulliam Urea nitrogen/Creatinine [Mass ratio] 14.3 mg/mg Normal [facility] Comment on above: Performed By: #### B DAVID ####[facility] [facility] [address] [place] [address]Dr. Chapisrenu Pulliam CARDIAC NASH ADMITon 09-12- 022 CK [Catalytic activity/Vol] 304 U/L Normal 39-308 [facility] Comment on above: Performed By: #### B NANCY HERNANDEZ ####[facility] [address] [place] [address]Dr. Garima Pulliam CK.MB [Mass/Vol] 11.81 ng/mL Critically high <=3.60 [facility] Comment on above: Performed By: #### B NANCY HERNANDEZ ####[facility] [address] [place] [address]Dr. Garima Heraclio HSTROP 13.3 pg/mL Normal 4.0-76.1 [facility] Comment on above: Result Comment: CUT- OFF POINTS HAVE BEEN ESTABLISHED BASED ON THE FOURTH UNIVERSAL DEFINITIONS OF MYOCARDIALINFARCTION. THE UPPER REFERENCE LIMIT (URL) OF TROPONIN, DEFINED THE 99TH PERCENTILE OFcTnI DISTRIBUTION IN A REFERENCE POPULATION, HAS BEEN CONFIRMED THE DECISION THRESHOLDFOR [place] DIAGNOSIS. Performed By: #### B NANCY HERNANDEZ ####[facility] [address] [place] [address]Dr. Garima Pulliam DORIS 133 ng/mL Critically high 16-96 [facility] Comment on above: Performed By: #### B NANCY HERNANDEZ ####[facility] [address] [place] [address]Dr. Garima Uplliam CBC AUTO DIFFon 09-12-2022 BASO # 0.0 103/ul Normal 0.0-0.1 [facility] Comment on above: Performed By: #### C BC ####[facility] [address] [place], [place] [address]Dr. Garima Heraclio Basophils/100 WBC (Bld) 0.2 % Normal 0.2-2.0 [facility] Comment on above: Performed By: #### C BC ####[facility] [address] [place], [place] [address]Dr. Garima Heraclio EO # 0.2 103/ul Normal 0.0-0.7 [facility] Comment on above: Performed By: #### C BC ####[facility] [address] [place], [place] [address]Dr. Chapisrenu Pulliam Eosinophils/100 WBC (Bld) 1.3 % Normal 0.9-7.0 [facility] Comment on above: Performed By: #### C BC ####[facility] [address] [place], [place] [address]Dr. Garima Pulliam Erythrocyte distribution width (RBC) [Ratio] 13.7 % Normal 11.0-15.0 [facility] Comment on above: Performed By: #### C BC ####[facility] [address] [place], [place] [address]Dr. Garima Pulliam Hematocrit (Bld) [Volume fraction] 46.4 % Normal 42.0-54.0 [facility] Comment on above: Performed By: #### C BC ####[facility] [address] [place], [place] [address]Dr. Garima Pulliam Hemoglobin (Bld) [Mass/Vol] 15.7 g/dL Normal 14.0-18.0 [facility] Comment on above: Performed By: #### C BC ####[facility] [address] [place], [place] [address]Dr. Garima Pulliam IG # 0.04 10e3/ul Critically high 0.00-0.03 [facility] Comment on above: Performed By: #### C BC ####[facility] [address] [place] [id number]. Garima Pulliam IG % 0.3 % Normal 0.0-0.5 [facility] Comment on above: Performed By: #### C BC ####[facility] [address] [place] [id number]. Garima Pulliam LYMPH # 1.7 103/ul Normal 1.2-3.8 [facility] Comment on above: Performed By: #### C BC ####[facility] [address] [place] [id number]. Garima Pulliam Lymphocytes/100 WBC (Bld) 11.5 % Critically low 20.5-60.0 [facility] Comment on above: Performed By: #### C BC ####[facility] [address] [place] [id number]. Garima Pulliam MANUAL DIFF REQ NO Normal [facility] Comment on above: Performed By: #### C BC ####[facility] [address] [place] [id number]. Garima Pulliam MCH (RBC) [Entitic mass] 31.0 pg Normal 25.9-34.0 [facility] Comment on above: Performed By: #### C BC ####[facility] [address] [place] [id number]. Garima Pulliam MCHC (RBC) [Mass/Vol] 33.8 g/dL Normal 29.9-35.2 [facility] Comment on above: Performed By: #### C BC ####[facility] [address] [place] [id number]. Garima Pulliam MCV (RBC) [Entitic vol] 91.7 fL Normal 80.0-94.0 [facility] Comment on above: Performed By: #### C BC ####[facility] [address] [place] [id number]. Garima Heraclio MONO # 0.8 103/ul Normal 0.3-0.8 [facility] Comment on above: Performed By: #### C BC ####[facility] [address] [place] [address]Dr. Garima Pulliam Monocytes/100 WBC (Bld) 5.2 % Normal 1.7-12.0 [facility] Comment on above: Performed By: #### C BC ####[facility] [address] [place] [id number]. Garima Pulliam NEUT # 11.7 103/ul Critically high 1.4-6.5 [facility] Comment on above: Performed By: #### C BC ####[facility] [address] [place] [id number]. Garima Pulliam Neutrophils/100 WBC (Bld) 81.5 % Critically high 43.0-75.0 [facility] Comment on above: Performed By: #### C BC ####[facility] [address] [place] [address]Dr. Garima Pulliam Platelet mean volume (Bld) [Entitic vol] 8.6 fL Critically low 9.5-13.5 [facility] Comment on above: Performed By: #### C BC ####[facility] [address] [place] [id number]. Garima Pulliam PLT 191 103/ul Normal 150-450 [facility] Comment on above: Performed By: #### C BC ####[facility] [address] [place], [place] [address]Dr. Garima Pulliam RBC 5.06 106/ul Normal 4.70-6.10 [facility] Comment on above: Performed By: #### C BC ####[facility] [address] [place], [place] [address]Dr. Garima Pulliam WBC 14.4 103/ul Critically high 4.0-11.0 [facility] Comment on above: Performed By: #### C BC ####[facility] [address] [place], [place] [address]Dr. Garima Pulliam [facility] SARS-CoV-2 (COVID-19) RNA MARIE+probe Ql (Unsp spec) Not detected Normal NOT DETECTED [facility] Comment on above: Result Comment: When [...] for this test is supported by the Adapted Physical Education Teacher of [employer] and Human Service's [...] be used). Performed By: #### C VDTBH ####[facility] [address] [place], [place] [address]Dr. Garima Pulliam LACTATE/LACTIC ACIDon 2021 Lactate [Moles/Vol] 1.0 mmol/L Normal 0.4-1.9 [facility] Comment on above: Performed By: #### L ACT ####[facility] [address] [place], [place] [address]Dr. Garima Pulliam PROF CHEM 8 (BAS METB)on Anion gap [Moles/Vol] 11.6 mmol/L Normal [facility] Comment on above: Performed By: #### B NANCY HERNANDEZ ####[facility] [address] [place] [address]Dr. Garima Pulliam Calcium [Mass/Vol] 9.2 mg/dL Normal 8.5-10.1 [facility] Comment on above: Performed By: #### B NANCY HERNANDEZ ####[facility] [address] [place] [address]Dr. Garima Pulliam Chloride [Moles/Vol] 105 mmol/L Normal 98-107 [facility] Comment on above: Performed By: #### B MP, CMADM ####[facility] [address] [place] [id number]. Garima uPlliam CO2 [Moles/Vol] 25.9 mmol/L Normal 21.0-32.0 [facility] Comment on above: Performed By: #### B DAVID, CMADM ####[facility] [address] [place] [address]Dr. Garima Pulliam Creatinine [Mass/Vol] 0.72 mg/dL Normal 0.70-1.30 [facility] Comment on above: Performed By: #### B DAVID, CMADM ####[facility] [address] [place] [id number]. Garima Pulliam EGFR-AF PORTUGUESE >60 Normal >=60 [facility] Comment on above: Performed By: #### B DAVID, CMADM ####[facility] [address] [place] [address]Dr. Chapisrenu Pulliam EGFR-NON AF PORTUGUESE >60 Normal >=60 [facility] Comment on above: Performed By: #### B DAVID, CMAANA ROSA ####[facility] [address] [place] [address]Dr. Garima Pulliam Glucose [Mass/Vol] 111 mg/dL Critically high 74-106 [facility] Comment on above: Performed By: #### B DAVID, CMADM ####[facility] [address] [place] [address]Dr. Chapisrenu Pulliam Potassium [Moles/Vol] 3.5 mmol/L Normal 3.5-5.1 [facility] Comment on above: Performed By: #### B DAVID, CMADM ####[facility] [address] [place] [address]Dr. Chapisrenu Pulliam Sodium [Moles/Vol] 139 mmol/L Normal 136-145 [facility] Comment on above: Performed By: #### B DAVID, CMADM ####[facility] [address] [place] [address]Dr. Garima Pulliam Urea nitrogen [Mass/Vol] 7.0 mg/dL Normal 7.0-18.0 [facility] Comment on above: Performed By: #### B DAVID, CMADM ####[facility] [address] [place], [place] [address]Cz. Garima Pulliam Urea nitrogen/Creatinine [Mass ratio] 9.7 mg/mg Normal [facility] Comment on above: Performed By: #### B MP, CMADM ####[facility] [address] [place], [place] [address]Ob. Garima Pulliam XR CHEST 1 Von 09-12-2022 XR CHEST 1 V Normal [facility] Encounters Encounter Date Encounter Type [...] Facility:H1 Payers Date Payer Category Payer Unknown [id number] 1960 Medicaid [id number] 1960 Unknown [id number] 1959 Unknown [id number] 1954 Unknown [id number] 2.16.84 0.1.224595.3.579.2.593 1954 Unknown [id number] 2.16.84 0.1.256968.3.579.2.593 1954 Unknown [id number] 2.16.84 0.1.194786.3.579.2.593 1954 Unknown [id number] 2.16.84 0.1.760913.3.579.2.593 1954 Unknown [id number] 2.16.84 0.1.305524.3.579.2.593 1954 Unknown [id number] 2.16.84 0.1.790154.3.579.2.593 1954 Unknown [id number] 2.16.84 0.1.727062.3.579.2.593 1954 Unknown [id number] 2.16.84 0.1.679475.3.579.2.593 1954 Unknown [id number] 2.16.84 0.1.283904.3.579.2.593 1954 Unknown [id number] 2.16.84 0.1.888774.3.579.2.593 1954 Unknown [id number] 2.16.84 0.1.865505.3.579.2.593 1954 Unknown [id number] 2.16.84 0.1.145190.3.579.2.593 1954 Unknown [id number] 2.16.84 0.1.882811.3.579.2.593 1954 Unknown [id number] 2.16.84 0.1.902341.3.579.2.593 1954 Unknown [id number] 2.16.84 0.1.899862.3.579.2.593 1954 Unknown [id number] 2.16.84 0.1.771781.3.579.2.593 1954 Unknown [id number] 2.16.84 0.1.985282.3.579.2.593 1954 Unknown [id number] 2.16.84 0.1.013182.3.579.2.593 1954 Unknown [id number] 2.16.84 0.1.283799.3.579.2.593 1954 Unknown [id number] 2.16.84 0.1.806891.3.579.2.593 Summary Purpose Family History No Family History Records Found Advance Directives No Advanced Directives Records Found Additional Source Comments (unrecognized sect ion and content) No Status Records Found INFORMATION SOURCE (unrecogn ized section and content) DATE CREATED AUTHOR 04/08/2023 [facility] FOR RECORDS PERTAINING TO PATIENTS [...] BE BASED ON THE PRIMARY CLINICAL RECORDS. [facility] [employer] [facility]. provides no warranty or guarantee of the accuracy or completeness of information in this document.
[2024-11-12 18:42] VITALS: BP 158/90; PULSE 82; TEMP 37; O2SAT 95; BMI 23.7
[2024-11-12 19:30] LABS: Bilirubin Urine NEGATIVE (NEGATIVE); Blood Urine LARGE (NEGATIVE); Clarity Urine CLEAR (CLEAR); Color Urine LT. YELLOW (YELLOW); Glucose Urine UA >=1000 mg/dL (NEGATIVE); Ketones Urine NEGATIVE (NEGATIVE); Leukocyte Esterase Urine NEGATIVE (NEGATIVE); Nitrite Urine NEGATIVE (NEGATIVE); Protein Urine NEGATIVE (NEG/TRACE); Specific Gravity Urine <=1.005 (1.005-1.025); Urobilinogen Urine 0.2 EU/dL (0.2-1.0)
[2024-11-12 19:33] LABS: Urine Microscopic Indicated YES
[2024-11-12 19:37] LABS: Bacteria Urine NONE SEEN #/HPF (NONE SEEN); Mucus Urine NONE SEEN (NONE SEEN); Squamous Epithelial Cell Urine NONE SEEN #/LPF (NONE/RARE); WBC Urine 0-2 #/HPF (NONE SEEN)
[2024-11-12 19:38] LABS: Cast Seen? NONE SEEN #/LPF (NONE SEEN); Crystals Seen? None Seen #/HPF (None Seen); Urine Culture Indicated NO
--- NOTE | 2024-11-12 19:56 | ED.GENADUL1 ---
HPI HPI - General Adult General Chief complaint: Urogenital-Male Stated complaint: urinary complications Time Seen by Provider: 11/12/24 19:03 Mode of arrival: walk-in History of Present Illness HPI narrative: 69-year-old male to the emergency department chief complaint of urinary retention. Patient reports this has happened before. He does not know why. He reports that he has not been able to urinate in several hours. He reports he has the urge to go. When he pushes he only gets a few dribbles out. He reports he was on Flomax at 1 point in the past but currently does not take it. No new medications. He denies any fever, sweats, chills. No back pain, numbness, weakness, tingling. No falls or injuries. Related Data Home Medications ?Medication ?Instructions ?Recorded ?Confirmed albuterol sulfate 90 mcg/actuation 2 inh inhalation Q6H PRN shortness 03/13/24 10/02/24 aerosol inhaler of breath or wheezing Previous Rx's ?Medication ?Instructions ?Recorded losartan 100 mg tablet 100 mg PO DAILY #30 tabs 12/27/23 albuterol sulfate 2.5 mg/3 mL 2.5 mg (3 mL) inhalation Q6H PRN 05/26/24 (0.083 %) solution for nebulization shortness of breath or wheezing #90 mL loratadine 10 mg tablet (Claritin) 10 mg PO DAILY #20 tabs 05/30/24 albuterol sulfate 2.5 mg/3 mL 2.5 mg (3 mL) inhalation Q6H PRN 08/07/24 (0.083 %) solution for nebulization shortness of breath or wheezing #90 mL albuterol sulfate 90 mcg/actuation 2 inh inhalation Q4H PRN shortness 08/07/24 aerosol inhaler of breath or wheezing #8.5 grams albuterol sulfate 2.5 mg/3 mL 1.25 mg (1.5 mL) inhalation Q6H 09/04/24 (0.083 %) solution for nebulization PRN bronchospasm #75 mL albuterol sulfate 90 mcg/actuation 2 inh inhalation Q6H PRN shortness 09/04/24 aerosol inhaler of breath or wheezing #6.7 grams albuterol sulfate 2.5 mg/3 mL 2.5 mg (3 mL) inhalation Q6H PRN 09/12/24 (0.083 %) solution for nebulization shortness of breath or wheezing #90 mL prednisone 20 mg tablet See Rx Instructions .Route 09/21/24 .COMPLEX #12 tabs albuterol sulfate 2.5 mg/0.5 mL 2.5 mg (0.5 mL) inhalation Q4H PRN 10/02/24 solution for nebulization shortness of breath or wheezing #30 ea albuterol sulfate 90 mcg/actuation 2 inh inhalation Q4H PRN shortness 10/02/24 aerosol inhaler of breath or wheezing #6.7 grams albuterol sulfate 2.5 mg/3 mL 2.5 mg (3 mL) inhalation Q6H PRN 10/07/24 (0.083 %) solution for nebulization shortness of breath or wheezing #90 mL albuterol sulfate 90 mcg/actuation 2 inh inhalation Q4H PRN shortness 10/07/24 aerosol inhaler of breath or wheezing #8.5 grams hydrocodone 5 mg-acetaminophen 325 1 tab PO Q4H PRN pain #10 tabs 11/11/24 mg tablet ketorolac 10 mg tablet 10 mg PO Q8H PRN pain 1 day #10 11/11/24 tabs metformin 500 mg tablet 500 mg PO BID #30 tabs 11/11/24 ondansetron 4 mg disintegrating 4 mg PO Q4H PRN nausea and 11/11/24 tablet vomiting 3 days #6 tabs tamsulosin 0.4 mg capsule (Flomax) 0.4 mg PO DAILY 7 days #7 caps 11/11/24 tamsulosin 0.4 mg capsule (Flomax) 0.4 mg PO DAILY #14 caps 11/12/24 Allergies Allergy/AdvReac Type Severity Reaction Status Date / Time No Known Drug Allergies Allergy Verified 11/11/24 05:54 Opioid HPI Opioid Management Most Recent Opioid Data: Last ORT Total Score 0 01/29/24 06:36 01/29/24 Last ORT Risk Category Low Risk 01/29/24 06:36 01/29/24 Review of Systems ROS Status of ROS 10 or more systems reviewed and unremarkable except as noted in history and below [facility] Medical History (Updated 11/12/24 @ 19:51 by Abdullahi Ivory MD) Hypokalemia ?E87.6 - Hypokalemia (ICD-10) New onset type 2 diabetes mellitus ?E11.9 - Type 2 diabetes mellitus without complications (ICD-10) Lower extremity edema ?R60.0 - Localized edema (ICD-10) Edema ?R60.9 - Edema, unspecified (ICD-10) Acute hyperglycemia ?R73.9 - Hyperglycemia, unspecified (ICD-10) Tobacco abuse ?Z72.0 - Tobacco use (ICD-10) HTN (hypertension) ?I10 - Essential (primary) hypertension (ICD-10) Community acquired pneumonia ?J18.9 - Pneumonia, unspecified organism (ICD-10) Chronic obstructive pulmonary disease ?J44.9 - Chronic obstructive pulmonary disease, unspecified (ICD-10) Acute exacerbation of chronic obstructive pulmonary disease (COPD) ?J44.1 - Chronic obstructive pulmonary disease with (acute) exacerbation (ICD-10) RLL pneumonia ?J18.9 - Pneumonia, unspecified organism (ICD-10) COPD (chronic obstructive pulmonary disease) ?J44.9 - Chronic obstructive pulmonary disease, unspecified (ICD-10) Surgical History (Updated 01/29/24 @ 06:45 by Latonia Martin RN) Hx of tonsillectomy ?Z90.89 - Acquired absence of other organs (ICD-10) Family History (Updated 12/25/23 @ 21:28 by Kym Ordaz) Mother Family history of cancer Family history of hypertension Father Family history of cancer Social History Within the past year, how often did you have a drink containing alcohol: 4 or more times a week Within the past year, how many standard drinks containing alcohol did you have on a typical day: 3 or 4 Within the past year, how often did you have six or more drinks on one occasion: less than monthly Total score: 3 Score interpretation: A score of 4 or more indicates drinking is likely to affect patient's safety. Smoking status: Current every day smoker Non-prescribed substance use: cannabis (any form) Previous occupational history: retired Highest level of school completed/degree received: high school graduate Are you now , , , , never or living with a partner: In a typical week, how many times do you talk on the telephone with family, friends, or neighbors: twice per week How often do you get together with friends or relatives: once per week How often do you attend religion or mormonism services: never Do you belong to any clubs or organizations such as religion groups unions, fraternal or athletic groups, or school groups: no Total score: 1 Score interpretation: A score of less than or equal to 1 indicates the most socially isolated. Little interest or pleasure in doing things: not at all Feeling down, depressed, or hopeless: not at all Feel stressed/tense/nervous/anxious/difficulty sleeping: not at all Do you think of yourself as: straight/heterosexual Gender Identity: male Exam Narrative Exam Narrative: VITALS: I have reviewed the triage vital signs. GENERAL: Well developed, well appearing adult in no acute distress. NEURO: Alert and oriented. Moves all extremities. Face is symmetric and expressive. Normal gait. Normal sensation in the legs/groin. EYES: PERRL. No scleral icterus or conjunctival injection. No discharge. HENT: Normocephalic, atraumatic. Hearing is grossly intact. Nares grossly patent and without discharge. Mucous membranes moist. NECK: No JVD. Patient moves neck without restriction. GI/: Palpable bladder. Otherwise benign abdomen. EXTREMITIES: Symmetric muscle bulk. No joint swelling. No clubbing, cyanosis, or deformity. SKIN: Warm and dry. Normal turgor. No rash or lesions appreciated. PSYCH: Mood, affect, and interaction is appropriate to the setting. Constitutional Vital Signs, click to edit/add: Last Vital Signs Temp 98.6 F 11/12/24 18:42 Pulse 82 11/12/24 18:42 Resp 18 11/12/24 18:42 BP 158/90 H 11/12/24 18:42 Pulse Ox 95 11/12/24 18:42 O2 Del Method Room Air 11/12/24 18:42 Course Vital Signs Vital signs: Vital Signs Temperature 98.6 F 11/12/24 18:42 Pulse Rate 82 11/12/24 18:42 Respiratory Rate 18 11/12/24 18:42 Blood Pressure 158/90 H 11/12/24 18:42 Pulse Oximetry 95 11/12/24 18:42 Oxygen Delivery Method Room Air 11/12/24 18:42 Temperature 98.6 F 11/12/24 18:42 Pulse Rate 82 11/12/24 18:42 Respiratory Rate 18 11/12/24 18:42 Blood Pressure 158/90 H 11/12/24 18:42 Pulse Oximetry 95 11/12/24 18:42 Oxygen Delivery Method Room Air 11/12/24 18:42 Medical Decision Making MDM Narrative Medical decision making narrative: 69-year-old male to the emergency department chief complaint of urinary retention. Vital stable, the patient is afebrile. Palpable bladder. Does have greater than 800 by bladder scan. A Josue catheter was placed by nursing staff. Significant amount of urine out. Urinalysis was sent. No evidence of infection. He denies any flank pain, dysuria, urgency, frequency or hematuria proceeding. Will place him on Flomax, follow-up with urology in the next 2 weeks for removal and void trial. No obvious cause. Does not appear to be neurogenic or any acute anatomic abnormality. He reports this has happened in the past and he has been on Flomax. Return precautions were discussed. All questions were answered. The patient was discharged home. Medical Records Medical records reviewed: Yes I reviewed the patient's medical records Lab Data Lab results reviewed: Yes I reviewed the patient's lab results Labs: Lab Results 11/12/24 Range/Units 19:20 Urine Color Lt. yellow (YELLOW) Urine Clarity Clear (CLEAR) Urine pH 6.0 (5.0-9.0) Ur Specific [place] <=1.005 A (1.005-1.025) Urine Protein Negative (NEG/TRACE) mg/dL Urine Glucose (UA) >=1000 A (NEGATIVE) mg/dL Urine Ketones Negative (NEGATIVE) mg/dL Urine Occult Blood Large A (NEGATIVE) Urine Nitrite Negative (NEGATIVE) Urine Bilirubin Negative (NEGATIVE) Urine Urobilinogen 0.2 (0.2-1.0) EU/dL Ur Leukocyte Esterase Negative (NEGATIVE) Urine RBC 2-5 A (0-2) #/HPF Urine WBC 0-2 A (NONE SEEN) #/HPF Ur Squamous Epith Cells None seen (NONE/RARE) #/LPF Urine Crystals None seen (None Seen) #/HPF Urine Bacteria None seen (NONE SEEN) #/HPF Urine Casts None seen (NONE SEEN) #/LPF Urine Mucus None seen (NONE SEEN) Ur Culture Indicated? No Discharge Plan Discharge Chief Complaint: Urogenital-Male Clinical Impression: Acute urinary retention Patient Disposition: Home, Self-Care Time of Disposition Decision: 19:51 Condition: Good Mode of Transportation: Private Vehicle Prescriptions / Home Meds: New tamsulosin [Flomax] 0.4 mg capsule 0.4 mg PO DAILY Qty: 14 0RF No Action losartan 100 mg tablet 100 mg PO DAILY Qty: 30 11RF albuterol sulfate 90 mcg/actuation HFA aerosol inhaler 2 inh inhalation Q6H PRN (Reason: shortness of breath or wheezing) albuterol sulfate 2.5 mg /3 mL (0.083 %) solution for nebulization 2.5 mg inhalation Q6H PRN (Reason: shortness of breath or wheezing) Qty: 90 0RF albuterol sulfate 2.5 mg /3 mL (0.083 %) solution for nebulization 2.5 mg inhalation Q6H PRN (Reason: shortness of breath or wheezing) Qty: 90 0RF albuterol sulfate 90 mcg/actuation HFA aerosol inhaler 2 inh inhalation Q4H PRN (Reason: shortness of breath or wheezing) Qty: 8.5 0RF albuterol sulfate 2.5 mg /3 mL (0.083 %) solution for nebulization 2.5 mg inhalation Q6H PRN (Reason: shortness of breath or wheezing) Qty: 90 0RF prednisone 20 mg tablet See Rx Instructions .ROUTE .COMPLEX Qty: 12 0RF Rx Instructions: 3 tabs daily for 2 days, then 2 tabs daily for 2 days, then 1 tab daily for 2 days albuterol sulfate 2.5 mg/0.5 mL solution for nebulization 2.5 mg inhalation Q4H PRN (Reason: shortness of breath or wheezing) Qty: 30 2RF albuterol sulfate 90 mcg/actuation HFA aerosol inhaler 2 inh inhalation Q4H PRN (Reason: shortness of breath or wheezing) Qty: 6.7 0RF loratadine [Claritin] 10 mg tablet 10 mg PO DAILY Qty: 20 0RF albuterol sulfate 2.5 mg /3 mL (0.083 %) solution for nebulization 1.25 mg inhalation Q6H PRN (Reason: bronchospasm) Qty: 75 0RF albuterol sulfate 90 mcg/actuation HFA aerosol inhaler 2 inh inhalation Q6H PRN (Reason: shortness of breath or wheezing) Qty: 6.7 0RF albuterol sulfate 90 mcg/actuation HFA aerosol inhaler 2 inh inhalation Q4H PRN (Reason: shortness of breath or wheezing) Qty: 8.5 0RF albuterol sulfate 2.5 mg /3 mL (0.083 %) solution for nebulization 2.5 mg inhalation Q6H PRN (Reason: shortness of breath or wheezing) Qty: 90 0RF hydrocodone-acetaminophen 5-325 mg tablet 1 tab PO Q4H PRN (Reason: pain) Qty: 10 0RF ketorolac 10 mg tablet 10 mg PO Q8H PRN (Reason: pain) 1 Days Qty: 10 0RF tamsulosin [Flomax] 0.4 mg capsule 0.4 mg PO DAILY 7 Days Qty: 7 0RF ondansetron 4 mg tablet,disintegrating 4 mg PO Q4H PRN (Reason: nausea and vomiting) 3 Days Qty: 6 0RF metformin 500 mg tablet 500 mg PO BID Qty: 30 0RF Print Language: [place] Instructions: Urinary Retention in Men (ED), Josue Catheter Placement and Care (ED), How to Change a Catheter Drainage Bag (DC) Additional Instructions: Call the office of your primary care doctor to arrange for follow-up within the above-stated timeframe. Your ED visit was focused on your acute issue and does not replace primary care. You should review your labs, imaging, and diagnoses from this ED visit with your primary care physician. There may be non-emergent/ incidental findings that need further evaluation. You should review your vital signs including blood pressure with your PCP. If you were prescribed medications you should discuss possible side-effects and drug interactions with your pharmacist. Call 911 or go to the nearest Emergency Department if you develop any new or worsening symptoms. Referrals: Ariel Dahl MD [Physician] - 1 week (Follow-up for catheter removal within 2 weeks.) SERG DUENAS [Primary Care Provider] - 1 week
== END 2024-11-12 20:10 | disposition home or self-care (01) ==
PROVIDERS: Emergency Provider Student in an Organized Health Care Education/Training Program
DX: R33.9 Retention of urine, unspecified (principal); F17.200 Nicotine dependence, unspecified, uncomplicated
CPT/HCPCS: 51702; 81001; 99284

== ENCOUNTER 2024-11-21 19:13 | Emergency (ER) | payer MEDICARE, SELFPAY ==
[2024-11-21 19:18] VITALS: BP 177/101; PULSE 76; TEMP 36.6; O2SAT 93; BMI 23.7
--- OUTSIDE RECORDS SUMMARY | 2024-11-21 19:23 | XMS_ITS | CCD ---
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 Garima Pulliam Basophils/100 WBC (Bld) 0.3 % Normal 0.2-2.0 [facility] Comment on above: Performed By: #### C BC ####[facility] [address]rysmfcro[address] [place] [address]DrAdalberto Pulliam EO # 0.3 103/ul Normal 0.0-0.7 [facility] Comment on above: Performed By: #### C BC ####[facility] [address]ax[address] [place], [place] [address]Dr. Garima Pulliam Eosinophils/100 WBC (Bld) 2.8 % Normal 0.9-7.0 [facility] Comment on above: Performed By: #### C BC ####[facility] [address]iytyaqykb[address] [place] [address]Dr. Garima Pulliam Erythrocyte distribution width (RBC) [Ratio] 13.4 % Normal 11.0-15.0 [facility] Comment on above: Performed By: #### C BC ####[facility] [address]sp[address] [place] [address]Dr. Garima Pulliam Hematocrit (Bld) [Volume fraction] 45.7 % Normal 42.0-54.0 [facility] Comment on above: Performed By: #### C BC ####[facility] Utcpm[address]dlx[address] [place] [address]Dr. Garima Pulliam Hemoglobin (Bld) [Mass/Vol] 15.2 g/dL Normal 14.0-18.0 [facility] Comment on above: Performed By: #### C BC ####[facility] Rfqnyxvvem[address] [place] [address]Dr. Garima Pulliam IG # 0.02 10e3/ul Normal 0.00-0.03 [facility] Comment on above: Performed By: #### C BC ####[facility] Mhiipjhwgy[address] [place] [address]Dr. Garima Pulliam IG % 0.2 % Normal 0.0-0.5 [facility] Comment on above: Performed By: #### C BC ####[facility] Qgfb[address]xekyj[address] [place] [address]Dr. Garima Pulliam LYMPH # 2.1 103/ul Normal 1.2-3.8 [facility] Comment on above: Performed By: #### C BC ####[facility] Ztfsxenrdv[address] [place] [address]Dr. Garima Pulliam Lymphocytes/100 WBC (Bld) 23.7 % Normal 20.5-60.0 [facility] Comment on above: Performed By: #### C BC ####[facility] X[address]xrbwk39[address] [place] [address]Dr. Garima Heraclio MANUAL DIFF REQ NO Normal [facility] Comment on above: Performed By: #### C BC ####[facility] Bpmhb[address]nfr[address] [place] [address]Dr. Garima Pulliam MCH (RBC) [Entitic mass] 30.4 pg Normal 25.9-34.0 [facility] Comment on above: Performed By: #### C BC ####[facility] P[address]xyjabtq[address] [place] [address]Dr. Garima Heraclio MCHC (RBC) [Mass/Vol] 33.3 g/dL Normal 29.9-35.2 [facility] Comment on above: Performed By: #### C BC ####[facility] K[address]vx[address] [place], [place] [address]Dr. Chapisrenu Pulliam MCV (RBC) [Entitic vol] 91.4 fL Normal 80.0-94.0 [facility] Comment on above: Performed By: #### C BC ####[facility] Xcpwvkruti[address] [place], [place] [address]Dr. Garima Heraclio MONO # 0.7 103/ul Normal 0.3-0.8 [facility] Comment on above: Performed By: #### C BC ####[facility] Cotxmzmeup[address] [place], [place] [address]Dr. Chapisrenu Pulliam Monocytes/100 WBC (Bld) 8.3 % Normal 1.7-12.0 [facility] Comment on above: Performed By: #### C BC ####[facility] Wphmtybcko[address] [place] [address]Dr. Chapisrenu Heraclio NEUT # 5.8 103/ul Normal 1.4-6.5 [facility] Comment on above: Performed By: #### C BC ####[facility] Tvdmts[address]dup[address] [place], [place] [address]Dr. Garima Pulliam Neutrophils/100 WBC (Bld) 64.7 % Normal 43.0-75.0 [facility] Comment on above: Performed By: #### C BC ####[facility] Mlvgvvjgej16[address] [place] [address]Dr. Garima Pulliam Platelet mean volume (Bld) [Entitic vol] 8.6 fL Critically low 9.5-13.5 [facility] Comment on above: Performed By: #### C BC ####[facility] Axntgdfzgm60[address] [place] [address]Dr. Garima Pulliam PLT 230 103/ul Normal 150-450 [facility] Comment on above: Performed By: #### C BC ####[facility] Ilhrvwqndo89[address] [place] [address]Dr. Chapisrenu Heraclio RBC 5.00 106/ul Normal 4.70-6.10 [facility] Comment on above: Performed By: #### C BC ####[facility] Vbayjmwfff9973 [place] [address]Dr. Garima Heraclio WBC 9.0 103/ul Normal 4.0-11.0 [facility] Comment on above: Performed By: #### C BC ####[facility] Sxhmvnbjws[address] [place] [address]Dr. Garima Pulliam MAGNESIUMon 04-04-2023 Magnesium [Mass/Vol] 1.8 mg/dL Normal 1.8-2.4 [facility] Comment on above: Performed By: #### M G ####[facility] Ntucwkmjoy39[address] [place] [address]Dr. Chapisrenu Pulliam PROF 14(COMP METB)on 023 Albumin [Mass/Vol] 3.8 g/dL Normal 3.4-5.0 [facility] Comment on above: Performed By: #### C MP ####[facility] Qjlsvtnxcn7985 [place] [address]Dr. Garima Pulliam Albumin/Globulin [Mass ratio] 1.2 {ratio} Normal [facility] Comment on above: Performed By: #### C MP ####[facility] Eoeedjvzel[address] [place] [address]Dr. Garima Heraclio ALP [Catalytic activity/Vol] 84 U/L Normal 46-116 [facility] Comment on above: Performed By: #### C MP ####[facility] Ov[address]tbqnuk12[address] [place] [id number]. Garima Pulliam ALT [Catalytic activity/Vol] 31 U/L Normal 16-63 [facility] Comment on above: Performed By: #### C MP ####[facility] Lgzzdtxoyo[address] [place] [address]Dr. Garima Pulliam Anion gap [Moles/Vol] 12.2 mmol/L Normal [facility] Comment on above: Performed By: #### C MP ####[facility] Elwcyerxip78[address] [place] [address]Dr. Garima Pulliam AST [Catalytic activity/Vol] 23 U/L Normal 15-37 [facility] Comment on above: Performed By: #### C MP ####[facility] Dodjezbmyq[address] [place], [place] [address]Dr. Garima Pulliam Bilirubin [Mass/Vol] 0.5 mg/dL Normal 0.2-1.0 [facility] Comment on above: Performed By: #### C MP ####[facility] Ipuxbdcctt[address] [place], [place] [address]Dr. Garima Pulliam Calcium [Mass/Vol] 9.2 mg/dL Normal 8.5-10.1 [facility] Comment on above: Performed By: #### C MP ####[facility] Eiqad[address]xwb[address] [place], [place] [address]Dr. Garima Pulliam Chloride [Moles/Vol] 103 mmol/L Normal 98-107 [facility] Comment on above: Performed By: #### C MP ####[facility] Vnlwojupck50[address] [place] [address]Dr. Garima Pulliam CO2 [Moles/Vol] 28.5 mmol/L Normal 21.0-32.0 [facility] Comment on above: Performed By: #### C MP ####[facility] Esxqzsqnco[address] [place], [place] [address]Dr. Garima Pulliam Creatinine [Mass/Vol] 0.74 mg/dL Normal 0.70-1.30 [facility] Comment on above: Performed By: #### C MP ####[facility] Bitcbuxecl[address] [place] [id number]. Garima Pulliam EGFR-AF KYRGYZ >60 Normal >=60 [facility] Comment on above: Performed By: #### C MP ####[facility] F[address]kyfdtdb38[address] [place] [address]Dr. Garima Heraclio EGFR-NON AF KYRGYZ >60 Normal >=60 [facility] Comment on above: Performed By: #### C MP ####[facility] Ucwzdgxgzk76[address] [place] [id number]. Garima Heraclio Globulin (S) [Mass/Vol] 3.1 g/dL Normal [facility] Comment on above: Performed By: #### C MP ####[facility] K[address]fb[address]ytm[address] [place], [place] [address]Dr. Garima Heraclio Glucose [Mass/Vol] 93 mg/dL Normal 74-106 [facility] Comment on above: Performed By: #### C MP ####[facility] Ajqeemjjdi[address] [place], [place] [address]Dr. Garima Heraclio Potassium [Moles/Vol] 3.7 mmol/L Normal 3.5-5.1 [facility] Comment on above: Performed By: #### C MP ####[facility] Djcwtdbqlr7[address] [place], [place] [address]Dr. Garima Heraclio Protein [Mass/Vol] 6.9 g/dL Normal 6.4-8.2 [facility] Comment on above: Performed By: #### C MP ####[facility] Taxffpkmce[address] [place], [place] [address]Dr. Garima Heraclio Sodium [Moles/Vol] 140 mmol/L Normal 136-145 [facility] Comment on above: Performed By: #### C MP ####[facility] Izwulvkhjy[address] [place], [place] [address]Dr. Garima Pulliam Urea nitrogen [Mass/Vol] 8.0 mg/dL Normal 7.0-18.0 [facility] Comment on above: Performed By: #### C MP ####[facility] Acagpzmbrs[address] [place], [place] [address]Dr. Garima Pulliam Urea nitrogen/Creatinine [Mass ratio] 10.8 mg/mg Normal [facility] Comment on above: Performed By: #### C DAVID ####[facility] Ddzmwoelfs88[address] [place] [address]Dr. Garima Pulliam AMMONIAon 03-30-2023 Ammonia (P) [Moles/Vol] 11 umol/L Normal 11-32 [facility] Comment on above: Performed By: #### A MM ####[facility] Wyjyeicivi[address] [place], [place] [address]Dr. Garima Pulliam CARDIAC NASH ADMITon 023 CK [Catalytic activity/Vol] 232 U/L Normal 39-308 [facility] Comment on above: Performed By: #### C NANCY HERNANDEZ ####[facility] Kpel[address]uovb16[address] [place] [address]Dr. Chapisrenu Pulliam CK.MB [Mass/Vol] 4.83 ng/mL Critically high <=3.60 [facility] Comment on above: Performed By: #### C NANCY HERNANDEZ ####[facility] Ydbhrkowpz[address] [place], [place] [address]Dr. Garima Pulliam HSTROP 10.5 pg/mL Normal 4.0-76.1 [facility] Comment on above: Result Comment: CUT- OFF POINTS HAVE BEEN ESTABLISHED BASED ON THE FOURTH UNIVERSAL DEFINITIONS OF MYOCARDIALINFARCTION. THE UPPER REFERENCE LIMIT (URL) OF TROPONIN, DEFINED THE 99TH PERCENTILE OFcTnI DISTRIBUTION IN A REFERENCE POPULATION, HAS BEEN CONFIRMED THE DECISION THRESHOLDFOR VA DIAGNOSIS. Performed By: #### C NANCY HERNANDEZ ####[facility] Xqyp[address]po[address] [place], [place] [address]Dr. Garima Heraclio DORIS 79 ng/mL Normal 16-96 [facility] Comment on above: Performed By: #### C NANCY HERNANDEZ ####[facility] Rtnwrlpadp[address] [place], [place] [address]Dr. Garima Heraclio CBC AUTO DIFFon 03-30-2023 BASO # 0.0 103/ul Normal 0.0-0.1 [facility] Comment on above: Performed By: #### C BC ####[facility] Huytjjumrh0843 [place] [id number]. Garima Pulliam Basophils/100 WBC (Bld) 0.1 % Critically low 0.2-2.0 [facility] Comment on above: Performed By: #### C BC ####[facility] Sedbqjgnve3880 [place] [id number]. Garima Pulliam EO # 0.3 103/ul Normal 0.0-0.7 [facility] Comment on above: Performed By: #### C BC ####[facility] [address] [place], [place] [id number]. Garima Pulliam Eosinophils/100 WBC (Bld) 3.3 % Normal 0.9-7.0 [facility] Comment on above: Performed By: #### C BC ####[facility] [address] [place], [place] [address]Dr. Garima Pulliam Erythrocyte distribution width (RBC) [Ratio] 13.5 % Normal 11.0-15.0 [facility] Comment on above: Performed By: #### C BC ####[facility] [address] [place], [place] [address]Dr. Garima Pulliam Hematocrit (Bld) [Volume fraction] 42.9 % Normal 42.0-54.0 [facility] Comment on above: Performed By: #### C BC ####[facility] [address] [place], [place] [address]Dr. Garima Pulliam Hemoglobin (Bld) [Mass/Vol] 13.9 g/dL Critically low 14.0-18.0 [facility] Comment on above: Performed By: #### C BC ####[facility] [address]eb[address]fu[address] [place] [id number]. Garima Pulliam IG # 0.01 10e3/ul Normal 0.00-0.03 [facility] Comment on above: Performed By: #### C BC ####[facility] [address] [place], [place] [address]Dr. Garima Pulliam IG % 0.1 % Normal 0.0-0.5 [facility] Comment on above: Performed By: #### C BC ####[facility] Lyxjitazhc9211 [place] [id number]. Garima Pulliam LYMPH # 1.7 103/ul Normal 1.2-3.8 [facility] Comment on above: Performed By: #### C BC ####[facility] Bejjrv[address]6662 [place], [place] [address]Uq. Garima Pulliam Lymphocytes/100 WBC (Bld) 22.8 % Normal 20.5-60.0 [facility] Comment on above: Performed By: #### C BC ####[facility] Zjldxwricz0138 [place] [id number]. Garima Heraclio MANUAL DIFF REQ NO Normal [facility] Comment on above: Performed By: #### C BC ####[facility] Exughpynmw7249 [place] [id number]. Garima Heraclio MCH (RBC) [Entitic mass] 30.5 pg Normal 25.9-34.0 [facility] Comment on above: Performed By: #### C BC ####[facility] Cymodnlvqi2764 [place] [id number]. Garima Pulliam MCHC (RBC) [Mass/Vol] 32.4 g/dL Normal 29.9-35.2 [facility] Comment on above: Performed By: #### C BC ####[facility] Pmvrgjifxv9871 [place] [id number]. Garima Heraclio MCV (RBC) [Entitic vol] 94.1 fL Critically high 80.0-94.0 [facility] Comment on above: Performed By: #### C BC ####[facility] Vheogbpkwg1462 [place] [id number]. Garima Heraclio MONO # 0.7 103/ul Normal 0.3-0.8 [facility] Comment on above: Performed By: #### C BC ####[facility] Mibmwyizwh1341 [place] [id number]. Garima Heraclio Monocytes/100 WBC (Bld) 8.6 % Normal 1.7-12.0 [facility] Comment on above: Performed By: #### C BC ####[facility] Pjpwztiaev9269 [place] [id number]. Garima Pulliam NEUT # 4.9 103/ul Normal 1.4-6.5 [facility] Comment on above: Performed By: #### C BC ####[facility] Rzrmnmfycg4185 [place] [id number]. Garima Pulliam Neutrophils/100 WBC (Bld) 65.1 % Normal 43.0-75.0 [facility] Comment on above: Performed By: #### C BC ####[facility] Rgzwlvpwja2329 [place] [id number]. Garima Pulliam Platelet mean volume (Bld) [Entitic vol] 8.5 fL Critically low 9.5-13.5 [facility] Comment on above: Performed By: #### C BC ####[facility] Flxdjcmbip8826 [place] [id number]. Garima Pulliam PLT 219 103/ul Normal 150-450 [facility] Comment on above: Performed By: #### C BC ####[facility] Hdgtwfrqkr8104 [place] [id number]. Garima Pulliam RBC 4.56 106/ul Critically low 4.70-6.10 [facility] Comment on above: Performed By: #### C BC ####[facility] Uvnkqceflr8343 [place] [id number]. Garima Pulliam WBC 7.6 103/ul Normal 4.0-11.0 [facility] Comment on above: Performed By: #### C BC ####[facility] Bpsgsixxwq5959 [place] [id number]. Garima Pulliam LACTATE/LACTIC ACIDon 2022 Lactate [Moles/Vol] 1.2 mmol/L Normal 0.4-2.0 [facility] Comment on above: Performed By: #### L ACT ####[facility] Vsckaavhgc2997 [place] [id number]. Garima Pulliam MAGNESIUMon 03-30-2023 Magnesium [Mass/Vol] 1.8 mg/dL Normal 1.8-2.4 [facility] Comment on above: Performed By: #### M G ####[facility] Eobqhrfqcx[address] [place] [address]Dr. Garima Pulliam PROF 14(COMP METB)on 023 Albumin [Mass/Vol] 3.5 g/dL Normal 3.4-5.0 [facility] Comment on above: Performed By: #### C DAVID, CMAANA ROSA ####[facility] Enzaorwcaa[address] [place] [address]Dr. Garima Pulliam Albumin/Globulin [Mass ratio] 1.2 {ratio} Normal [facility] Comment on above: Performed By: #### C DAVID, CMAANA ROSA ####[facility] Sqtovrcfkq0225 [place] [address]Dr. Garima Pulliam ALP [Catalytic activity/Vol] 85 U/L Normal 46-116 [facility] Comment on above: Performed By: #### C DAVID, CMAANA ROSA ####[facility] Xftpihvlcx[address] [place], [place] [address]Dr. Garima Pulliam ALT [Catalytic activity/Vol] 29 U/L Normal 16-63 [facility] Comment on above: Performed By: #### C DAVID, CMAANA ROSA ####[facility] Eafrccwfrf3965 [place] [address]Dr. Garima Pulliam Anion gap [Moles/Vol] 8.0 mmol/L Normal [facility] Comment on above: Performed By: #### C DAVID, CMAANA ROSA ####[facility] Mnkavvhqrb7421 [place] [address]Dr. Garima Pulliam AST [Catalytic activity/Vol] 18 U/L Normal 15-37 [facility] Comment on above: Performed By: #### C DAVID, CMADM ####[facility] Znvawhlcwn5871 [place] [address]Dr. Garima Pulliam Bilirubin [Mass/Vol] 0.4 mg/dL Normal 0.2-1.0 [facility] Comment on above: Performed By: #### C DAVID, CMADM ####[facility] Mivebgygit8348 [place] [address]Dr. Garima Pulliam Calcium [Mass/Vol] 8.8 mg/dL Normal 8.5-10.1 [facility] Comment on above: Performed By: #### C DAVID, NANCY ####[facility] Mcvmghmidq0556 [place] [address]Dr. Chapisrenu Pulliam Chloride [Moles/Vol] 108 mmol/L Critically high 98-107 [facility] Comment on above: Performed By: #### C DAVID, NANCY ####[facility] Icjyipkvef6415 [place] [address]Dr. Garima Pulliam CO2 [Moles/Vol] 29.6 mmol/L Normal 21.0-32.0 [facility] Comment on above: Performed By: #### C NANCY HERNANDEZ ####[facility] [address]llsbehyuq[address] [place], [place] [address]Dr. Garima Pulliam Creatinine [Mass/Vol] 0.77 mg/dL Normal 0.70-1.30 [facility] Comment on above: Performed By: #### C NANCY HERNANDEZ ####[facility] [address]wokdkmsoo[address] [place], [place] [address]Dr. Garima Heraclio EGFR-AF KYRGYZ >60 Normal >=60 [facility] Comment on above: Performed By: #### C NANCY HERNANDEZ ####[facility] Yeeaycanrx[address] [place], [place] [address]Dr. Garima Heraclio EGFR-NON AF KYRGYZ >60 Normal >=60 [facility] Comment on above: Performed By: #### C NANCY HERNANDEZ ####[facility] Ckiesbsyze6680 [place] [address]Dr. Garima Pulliam Globulin (S) [Mass/Vol] 2.8 g/dL Normal [facility] Comment on above: Performed By: #### C NANCY HERNANDEZ ####[facility] Fztfmmkmhg8973 [place] [address]Dr. Garima Pulliam Glucose [Mass/Vol] 207 mg/dL Critically high 74-106 [facility] Comment on above: Performed By: #### C NANCY HERNANDEZ ####[facility] Pdtyhfdytq[address] [place], [place] [address]Dr. Garima Pulliam Potassium [Moles/Vol] 4.6 mmol/L Normal 3.5-5.1 [facility] Comment on above: Performed By: #### C DAVID, NANCY ####[facility] Lliilqmdee9346 [place] [address]Dr. Garima Pulliam Protein [Mass/Vol] 6.3 g/dL Critically low 6.4-8.2 [facility] Comment on above: Performed By: #### C DAVID, NANCY ####[facility] Dmbgqlmldn8287 [place] [address]Dr. Garima Pulliam Sodium [Moles/Vol] 141 mmol/L Normal 136-145 [facility] Comment on above: Performed By: #### C DAVID, NANCY ####[facility] Hgjgrswrwa2453 [place] [address]Dr. Garima Pulliam Urea nitrogen [Mass/Vol] 9.0 mg/dL Normal 7.0-18.0 [facility] Comment on above: Performed By: #### C DAVID, NANCY ####[facility] Nxepszehgw9385 [place] [address]Dr. Garima Pulliam Urea nitrogen/Creatinine [Mass ratio] 11.7 mg/mg Normal [facility] Comment on above: Performed By: #### C DAVID, NANCY ####[facility] Djcxlaiuva1351 [place] [address]Dr. Garima Pulliam XR CHEST 1 Von 03-30-2023 XR CHEST 1 V Normal [facility] BNPon 03-27-2023 Natriuretic peptide B (Bld) [Mass/Vol] 251.0 pg/mL Normal <=900.0 [facility] Comment on above: Performed By: #### C MP, BNP, LIPID ####[facility] Zadtrmsezo[address] [place] [address]Dr. Garima Pulliam GLYCOHEMOGLOBIN A1Con 2022 ADA RECOMMENDATION SEE BELOW Normal [facility] Comment on above: Result Comment: ADA RECOMMENDED LIMIT 4.0 - 6.0 ADA THERAPEUTIC TARGET < 7.0 ACTION SUGGESTED > 7.0 Performed By: #### A 1C ####[facility] Ncnkzyxzls5661 [place] [address]Dr. Garima Pulliam Glucose [Mass/Vol] 180 mg/dL Normal [facility] Comment on above: Performed By: #### A 1C ####[facility] N[address]vsyasyj[address] [place], [place] [address]Dr. Chapisrenu Pulliam HbA1c (Bld) [Mass fraction] 7.9 % Critically high 4.5-6.2 [facility] Comment on above: Performed By: #### A 1C ####[facility] [address]ft[address] [place], [place] [address]Dr. Garima Pulliam HEMOGRAM AND PLATELon 2022 Hematocrit (Bld) [Volume fraction] 45.7 % Normal 42.0-54.0 [facility] Comment on above: Performed By: #### H H ####[facility] [address]ivow[address]ho[address] [place], [place] [address]Dr. Garima Pulliam Hemoglobin (Bld) [Mass/Vol] 15.1 g/dL Normal 14.0-18.0 [facility] Comment on above: Performed By: #### H H ####[facility] Z[address]ff[address]hg[address] [place], [place] [address]Dr. Garima Pulliam MCH (RBC) [Entitic mass] 30.0 pg Normal 25.9-34.0 [facility] Comment on above: Performed By: #### H H ####[facility] V[address]hq[address] [place], [place] [address]Dr. Garima Pulliam MCHC (RBC) [Mass/Vol] 33.0 g/dL Normal 29.9-35.2 [facility] Comment on above: Performed By: #### H H ####[facility] Kpx[address]ritq[address] [place], [place] [address]Dr. Garima Pulliam MCV (RBC) [Entitic vol] 90.7 fL Normal 80.0-94.0 [facility] Comment on above: Performed By: #### H H ####[facility] [address] [place], [place] [address]Dr. Garima Pulliam PLT 222 103/ul Normal 150-450 [facility] Comment on above: Performed By: #### H H ####[facility] Mu[address]rhxp8131 [place] [id number]. Garima Pulliam RBC 5.04 106/ul Normal 4.70-6.10 [facility] Comment on above: Performed By: #### H H ####[facility] Vykeimaahg1885 [place] [id number]. Garima Pulliam WBC 8.7 103/ul Normal 4.0-11.0 [facility] Comment on above: Performed By: #### H H ####[facility] Ppfegtmeoo0880 [place] [id number]. Garima Pulliam LIPID PROFILEon 03-27-2023 CHOL-HDL RATIO NORM SEE BELOW Normal [facility] Comment on above: Result Comment: 3.3 - 4.4 LOW RISK 4.4 - 7.1 AVERAGE RISK 7.1 - 11.0 MODERATE RISK >11.0 HIGH RISK Performed By: #### C MP, BNP, LIPID ####[facility] [address]uedpxrfka[address] [place] [address]Dr. Garima Pulliam Cholesterol [Mass/Vol] 113 mg/dL Normal <=200 [facility] Comment on above: Performed By: #### C MP, BNP, LIPID ####[facility] Krhttrwsnd[address]61 [place] [address]Dr. Garima Pulliam Cholesterol in HDL [Mass/Vol] 51 mg/dL Normal 40-60 [facility] Comment on above: Performed By: #### C MP, BNP, LIPID ####[facility] Oxgxsdclio[address] [place] [address]Dr. Garima Pulliam Cholesterol in LDL [Mass/Vol] 49.8 mg/dL Normal [facility] Comment on above: Performed By: #### C MP, BNP, LIPID ####[facility] [address] [place] [address]Dr. Garima Pulliam Cholesterol.total/Cho lesterol in HDL [Mass ratio] 2.2 {ratio} Normal [facility] Comment on above: Performed By: #### C MP, BNP, LIPID ####[facility] [address] [place] [address]Dr. Garima Pulliam HDL NORMAL > or = 60 mg/dl - LOW CARDIOVASCULAR RISK <40 mg/dl - HIGH CARDIOVASCULAR RISK Normal [facility] Comment on above: Performed By: #### C MP, BNP, LIPID ####[facility] [address] [place] [address]Dr. Garima Pulliam LDL CALC NORMAL SEE BELOW Normal [facility] Comment on above: Result Comment: <100 mg/dl OPTIMAL 100 - 129 mg/dl NEAR OR ABOVE OPTIMAL 130 - 159 mg/dl BORDERLINE HIGH 160 - 189 mg/dl HIGH >190 mg/dl VERY HIGH Performed By: #### C MP, BNP, LIPID ####[facility] [address] [place] [address]Dr. Garima Pulliam Triglyceride [Mass/Vol] 61 mg/dL Normal <=150 [facility] Comment on above: Performed By: #### C MP, BNP, LIPID ####[facility] [address] [place] [address]Dr. Garima Pulliam VLDL CALC 12.2 mg/dL Normal [facility] Comment on above: Performed By: #### C MP, BNP, LIPID ####[facility] [address]kcl[address] [place] [address]Dr. Garima Pulliam PROF 14(COMP METB)on 023 Albumin [Mass/Vol] 3.5 g/dL Normal 3.4-5.0 [facility] Comment on above: Performed By: #### C MP, BNP, LIPID ####[facility] [address] [place] [address]Dr. Garima Pulliam Albumin/Globulin [Mass ratio] 1.2 {ratio} Normal [facility] Comment on above: Performed By: #### C MP, BNP, LIPID ####[facility] [address] [place] [address]Dr. Garima Pulliam ALP [Catalytic activity/Vol] 82 U/L Normal 46-116 [facility] Comment on above: Performed By: #### C MP, BNP, LIPID ####[facility] [address]oz[address] [place] [address]Dr. Garima Pulliam ALT [Catalytic activity/Vol] 33 U/L Normal 16-63 [facility] Comment on above: Performed By: #### C MP, BNP, LIPID ####[facility] [address]kw[address] [place] [address]Dr. Garima Pulliam Anion gap [Moles/Vol] 9.9 mmol/L Normal [facility] Comment on above: Performed By: #### C MP, BNP, LIPID ####[facility] [address]diterqspk[address] [place] [address]Dr. Garima Pulliam AST [Catalytic activity/Vol] 24 U/L Normal 15-37 [facility] Comment on above: Performed By: #### C MP, BNP, LIPID ####[facility] Lat[address]lavx[address] [place] [address]Dr. Garima Pulliam Bilirubin [Mass/Vol] 0.6 mg/dL Normal 0.2-1.0 [facility] Comment on above: Performed By: #### C MP, BNP, LIPID ####[facility] [address]ll[address] [place] [address]Dr. Garima Pulliam Calcium [Mass/Vol] 9.2 mg/dL Normal 8.5-10.1 [facility] Comment on above: Performed By: #### C MP, BNP, LIPID ####[facility] [address]sw[address] [place] [address]Dr. Garima Pulliam Chloride [Moles/Vol] 106 mmol/L Normal 98-107 [facility] Comment on above: Performed By: #### C MP, BNP, LIPID ####[facility] [address]waeiqiq[address] [place] [address]Dr. Garima Pulliam CO2 [Moles/Vol] 32.3 mmol/L Critically high 21.0-32.0 [facility] Comment on above: Performed By: #### C MP, BNP, LIPID ####[facility] [address]rbq[address] [place] [address]Dr. Garima Pulliam Creatinine [Mass/Vol] 0.70 mg/dL Normal 0.70-1.30 [facility] Comment on above: Performed By: #### C MP, BNP, LIPID ####[facility] [address] [place] [id number]. Garima Pulliam EGFR-AF KYRGYZ >60 Normal >=60 [facility] Comment on above: Performed By: #### C MP, BNP, LIPID ####[facility] [address] [place] [id number]. Garima Pulliam EGFR-NON AF KYRGYZ >60 Normal >=60 [facility] Comment on above: Performed By: #### C MP, BNP, LIPID ####[facility] Biups[address]rp[address] [place] [address]Dr. Garima Pulliam Globulin (S) [Mass/Vol] 2.9 g/dL Normal [facility] Comment on above: Performed By: #### C MP, BNP, LIPID ####[facility] [address] [place] [address]Dr. Garima Pulliam Glucose [Mass/Vol] 111 mg/dL Critically high 74-106 [facility] Comment on above: Performed By: #### C MP, BNP, LIPID ####[facility] Zpbxjbsgad[address] [place] [address]Dr. Garima Pulliam Potassium [Moles/Vol] 4.2 mmol/L Normal 3.5-5.1 [facility] Comment on above: Performed By: #### C MP, BNP, LIPID ####[facility] Vdx[address]ubl[address] [place] [address]Dr. Garima Pulliam Protein [Mass/Vol] 6.4 g/dL Normal 6.4-8.2 [facility] Comment on above: Performed By: #### C MP, BNP, LIPID ####[facility] [address]cf[address] [place] [address]Dr. Garima Pulliam Sodium [Moles/Vol] 144 mmol/L Normal 136-145 [facility] Comment on above: Performed By: #### C MP, BNP, LIPID ####[facility] [address]wp[address]ts[address] [place] [address]Dr. Garima Pulliam Urea nitrogen [Mass/Vol] 7.0 mg/dL Normal 7.0-18.0 [facility] Comment on above: Performed By: #### C MP, BNP, LIPID ####[facility] Gl[address]meab[address] [place], [place] [address]Dr. Garima Pulliam Urea nitrogen/Creatinine [Mass ratio] 10.0 mg/mg Normal [facility] Comment on above: Performed By: #### C MP, BNP, LIPID ####[facility] Wnatbzsupj[address] [place], [place] [address]Dr. Garima Pulliam BNPon 03-22-2023 Natriuretic peptide B (Bld) [Mass/Vol] 103.0 pg/mL Normal <=900.0 [facility] Comment on above: Performed By: #### B SQUIRREL MAN, BMP ####[facility] Xaz[address]xx[address]vpm[address] [place], [place] [address]Dr. Garima Pulliam CBC AUTO DIFFon 03-22-2023 BASO # 0.0 103/ul Normal 0.0-0.1 [facility] Comment on above: Performed By: #### C BC ####[facility] [address]ns[address] [place], [place] [address]Dr. Garima Heraclio Basophils/100 WBC (Bld) 0.3 % Normal 0.2-2.0 [facility] Comment on above: Performed By: #### C BC ####[facility] Y[address]bsj[address] [place], [place] [address]Dr. Garima Pulliam EO # 0.2 103/ul Normal 0.0-0.7 [facility] Comment on above: Performed By: #### C BC ####[facility] P[address]wqmjreb[address] [place], [place] [address]Dr. Garima Pulliam Eosinophils/100 WBC (Bld) 2.2 % Normal 0.9-7.0 [facility] Comment on above: Performed By: #### C BC ####[facility] Rbuiomoyae[address] [place], [place] [address]Dr. Garima Pulliam Erythrocyte distribution width (RBC) [Ratio] 13.2 % Normal 11.0-15.0 [facility] Comment on above: Performed By: #### C BC ####[facility] [address] [place] [id number]. Garima Pulilam Hematocrit (Bld) [Volume fraction] 43.4 % Normal 42.0-54.0 [facility] Comment on above: Performed By: #### C BC ####[facility] [address] [place] [address]Dr. Garima Heraclio Hemoglobin (Bld) [Mass/Vol] 14.3 g/dL Normal 14.0-18.0 [facility] Comment on above: Performed By: #### C BC ####[facility] Lybk[address]emks[address] [place] [address]Dr. Garima Pulliam IG # 0.02 10e3/ul Normal 0.00-0.03 [facility] Comment on above: Performed By: #### C BC ####[facility] [address]rx[address]fgx[address] [place] [address]Dr. Garima Pulliam IG % 0.3 % Normal 0.0-0.5 [facility] Comment on above: Performed By: #### C BC ####[facility] [address]ysrw[address] [place] [address]Dr. Chapisrenu Pulliam LYMPH # 2.0 103/ul Normal 1.2-3.8 [facility] Comment on above: Performed By: #### C BC ####[facility] [address] [place] [address]Dr. Chapisrenu Pulliam Lymphocytes/100 WBC (Bld) 24.8 % Normal 20.5-60.0 [facility] Comment on above: Performed By: #### C BC ####[facility] [address]fle[address] [place] [address]Dr. Chapisrenu Pulliam MANUAL DIFF REQ NO Normal [facility] Comment on above: Performed By: #### C BC ####[facility] X[address]cq[address] [place] [address]Dr. Garima Heraclio MCH (RBC) [Entitic mass] 30.0 pg Normal 25.9-34.0 [facility] Comment on above: Performed By: #### C BC ####[facility] [address]zr[address] [place], [place] [address]Dr. Garima Pulliam MCHC (RBC) [Mass/Vol] 32.9 g/dL Normal 29.9-35.2 [facility] Comment on above: Performed By: #### C BC ####[facility] [address]uogm[address] [place] [id number]. Garima Pulliam MCV (RBC) [Entitic vol] 91.0 fL Normal 80.0-94.0 [facility] Comment on above: Performed By: #### C BC ####[facility] [address]silks[address] [place] [id number]. Garima Heraclio MONO # 0.8 103/ul Normal 0.3-0.8 [facility] Comment on above: Performed By: #### C BC ####[facility] Q[address]fupz[address] [place] [address]Dr. Chapisrenu Pulliam Monocytes/100 WBC (Bld) 9.7 % Normal 1.7-12.0 [facility] Comment on above: Performed By: #### C BC ####[facility] [address]wl[address] [place] [address]Dr. Garima Pulliam NEUT # 4.9 103/ul Normal 1.4-6.5 [facility] Comment on above: Performed By: #### C BC ####[facility] Im[address]cj[address]ltjr5[address] [place] [id number]. Garima Heraclio Neutrophils/100 WBC (Bld) 62.7 % Normal 43.0-75.0 [facility] Comment on above: Performed By: #### C BC ####[facility] Azzrinqvlg7[address] [place] [id number]. Garima Heraclio Platelet mean volume (Bld) [Entitic vol] 8.8 fL Critically low 9.5-13.5 [facility] Comment on above: Performed By: #### C BC ####[facility] [address]la[address] [place] [id number]. Garima Heraclio PLT 198 103/ul Normal 150-450 [facility] Comment on above: Performed By: #### C BC ####[facility] [address]cuaja65[address] [place] [id number]. Garima Heraclio RBC 4.77 106/ul Normal 4.70-6.10 [facility] Comment on above: Performed By: #### C BC ####[facility] Rixeueqwnc[address] [place] [id number]. Garima Heraclio WBC 7.9 103/ul Normal 4.0-11.0 [facility] Comment on above: Performed By: #### C BC ####[facility] [address]tdc[address] [place] [id number]. Garima Heraclio D-DIMERon 03-22-2023 D-DIMER 0.85 mg/L FEU Critically high <=0.59 [facility] Comment on above: Performed By: #### D DIM ####[facility] [address]ss[address] [place] [address]Dr. Garima Pulliam D-DIMER COMMENTS SEE BELOW Normal [facility] Comment on [...] generalized hospitalization. Performed By: #### D DIM ####[facility] Bwzsafijrp[address] [place], [place] [address]Dr. Garima Pulliam PROF CHEM 8 (BAS METB)on Anion gap [Moles/Vol] 6.9 mmol/L Normal [facility] Comment on above: Performed By: #### B SQUIRREL MAN, BMP ####[facility] Pygqufpdbo[address] [place] [address]Dr. Garima Pulliam Calcium [Mass/Vol] 8.9 mg/dL Normal 8.5-10.1 [facility] Comment on above: Performed By: #### B SQUIRREL MAN, BMP ####[facility] [address]fcbkvojj[address] [place] [address]Dr. Garima Pulliam Chloride [Moles/Vol] 101 mmol/L Normal 98-107 [facility] Comment on above: Performed By: #### B SQUIRREL MAN, BMP ####[facility] Krqhbycwcw[address] [place], [place] [address]Dr. Chapisrenu Heraclio CO2 [Moles/Vol] 30.7 mmol/L Normal 21.0-32.0 [facility] Comment on above: Performed By: #### B SQUIRREL MAN, BMP ####[facility] Jxivxkvkho[address] [place], [place] [address]Dr. Garima Pulliam Creatinine [Mass/Vol] 0.82 mg/dL Normal 0.70-1.30 [facility] Comment on above: Performed By: #### B SQUIRREL MAN, BMP ####[facility] Rjcjjldxjx[address] [place], [place] [address]Dr. Garima Pulliam EGFR-AF KYRGYZ >60 Normal >=60 [facility] Comment on above: Performed By: #### B SQUIRREL MAN, BMP ####[facility] Bngmjlleee[address] [place], [place] [address]Dr. Chapisrenu Heraclio EGFR-NON AF KYRGYZ >60 Normal >=60 [facility] Comment on above: Performed By: #### B SQUIRREL MAN, BMP ####[facility] Ibydlvgmks[address] [place], [place] [address]Dr. Garima Pulliam Glucose [Mass/Vol] 339 mg/dL Critically high 74-106 [facility] Comment on above: Performed By: #### B SQUIRREL MAN, BMP ####[facility] Hsjibrzmtw[address] [place], [place] [address]Dr. Garima Pulliam Potassium [Moles/Vol] 3.6 mmol/L Normal 3.5-5.1 [facility] Comment on above: Performed By: #### B SQUIRREL MAN, BMP ####[facility] Eqvxziczun[address] [place], [place] [address]Dr. Garima Pulliam Sodium [Moles/Vol] 135 mmol/L Critically low 136-145 [facility] Comment on above: Performed By: #### B SQUIRREL MAN, BMP ####[facility] Wozwzendcu[address] [place], [place] [address]Dr. Garima Pulliam Urea nitrogen [Mass/Vol] 11.0 mg/dL Normal 7.0-18.0 [facility] Comment on above: Performed By: #### B SQUIRREL MAN, BMP ####[facility] Uffqkdomvj[address] [place], [place] [address]Dr. Garima Pulliam Urea nitrogen/Creatinine [Mass ratio] 13.4 mg/mg Normal [facility] Comment on above: Performed By: #### B SQUIRREL MAN, BMP ####[facility] Ugoyqnvmac[address] [place], [place] [address]Dr. Garima Pulliam US VERONICA DOP LEG BILon 023 US VERONICA DOP LEG BENOIT Normal [facility] BNPon 03-18-2023 Natriuretic peptide B (Bld) [Mass/Vol] 226.0 pg/mL Normal <=900.0 [facility] Comment on above: Performed By: #### B SQUIRREL MAN, BMP ####[facility] Cltdimjadw[address] [place], [place] [address]Dr. Garima Pulliam CBC AUTO DIFFon 03-18-2023 BASO # 0.0 103/ul Normal 0.0-0.1 [facility] Comment on above: Performed By: #### C BC ####[facility] Amtggzbobi[address] [place], [place] [address]Dr. Garima Heraclio Basophils/100 WBC (Bld) 0.2 % Normal 0.2-2.0 [facility] Comment on above: Performed By: #### C BC ####[facility] Qvypdbgxrd[address] [place], [place] [address]Dr. Garima Pulliam EO # 0.3 103/ul Normal 0.0-0.7 [facility] Comment on above: Performed By: #### C BC ####[facility] Naydvundgc[address] [place], [place] [address]Dr. Garima Heraclio Eosinophils/100 WBC (Bld) 2.5 % Normal 0.9-7.0 [facility] Comment on above: Performed By: #### C BC ####[facility] Skkhdydbcw[address] [place], [place] [address]Dr. Garima Heraclio Erythrocyte distribution width (RBC) [Ratio] 13.2 % Normal 11.0-15.0 [facility] Comment on above: Performed By: #### C BC ####[facility] Sxkixpclmj[address] [place] [address]DrAdalberto Pulliam Hematocrit (Bld) [Volume fraction] 45.8 % Normal 42.0-54.0 [facility] Comment on above: Performed By: #### C BC ####[facility] Cogqhcaqvx4[address] [place] [address]DrAdalberto Pulliam Hemoglobin (Bld) [Mass/Vol] 15.3 g/dL Normal 14.0-18.0 [facility] Comment on above: Performed By: #### C BC ####[facility] V[address]kecoyrh[address] [place], [place] [address]DrAdalberto Pulliam IG # 0.02 10e3/ul Normal 0.00-0.03 [facility] Comment on above: Performed By: #### C BC ####[facility] Hbhwpwtipc[address] [place], [place] [address]DrAdalberto Pulliam IG % 0.2 % Normal 0.0-0.5 [facility] Comment on above: Performed By: #### C BC ####[facility] Awwymiigum[address] [place], [place] [address]DrAdalberto Pulliam LYMPH # 1.8 103/ul Normal 1.2-3.8 [facility] Comment on above: Performed By: #### C BC ####[facility] Aljtthzieq[address] [place], [place] [address]DrAdalberto Pulliam Lymphocytes/100 WBC (Bld) 18.3 % Critically low 20.5-60.0 [facility] Comment on above: Performed By: #### C BC ####[facility] [address]afkirwrvs[address] [place], [place] [address]DrAdalberto Pulliam MANUAL DIFF REQ NO Normal [facility] Comment on above: Performed By: #### C BC ####[facility] L[address]swiwxt[address] [place] [address]DrAdalberto Pulliam MCH (RBC) [Entitic mass] 30.5 pg Normal 25.9-34.0 [facility] Comment on above: Performed By: #### C BC ####[facility] Efdialaynm[address] [place] [address]DrAdalberto Pulliam MCHC (RBC) [Mass/Vol] 33.4 g/dL Normal 29.9-35.2 [facility] Comment on above: Performed By: #### C BC ####[facility] Nuccmayvmo8[address] [place] [address]DrAdalberto Pulliam MCV (RBC) [Entitic vol] 91.2 fL Normal 80.0-94.0 [facility] Comment on above: Performed By: #### C BC ####[facility] Rtrvynkzix[address] [place], [place] [address]DrAdalberto Pulliam MONO # 0.8 103/ul Normal 0.3-0.8 [facility] Comment on above: Performed By: #### C BC ####[facility] Wkiiekbnin[address] [place], [place] [address]DrAdalberto Pulliam Monocytes/100 WBC (Bld) 7.6 % Normal 1.7-12.0 [facility] Comment on above: Performed By: #### C BC ####[facility] Upsexfpmlw[address] [place], [place] [address]DrAdalberto Pulliam NEUT # 7.0 103/ul Critically high 1.4-6.5 [facility] Comment on above: Performed By: #### C BC ####[facility] Awcuvstrdx[address] [place], [place] [address]DrAdalberto Pulliam Neutrophils/100 WBC (Bld) 71.2 % Normal 43.0-75.0 [facility] Comment on above: Performed By: #### C BC ####[facility] K[address]lqhqscv[address] [place], [place] [address]DrAdalberto Pulliam Platelet mean volume (Bld) [Entitic vol] 8.9 fL Critically low 9.5-13.5 [facility] Comment on above: Performed By: #### C BC ####[facility] [address]ltatzpnoh[address] [place], [place] [address]DrAdalberto Pulliam PLT 217 103/ul Normal 150-450 [facility] Comment on above: Performed By: #### C BC ####[facility] Krzoakwusi[address] [place] [address]Dr. Garima Heraclio RBC 5.02 106/ul Normal 4.70-6.10 [facility] Comment on above: Performed By: #### C BC ####[facility] Psfbkdphie[address] [place], [place] [address]Dr. Garima Pulliam WBC 9.8 103/ul Normal 4.0-11.0 [facility] Comment on above: Performed By: #### C BC ####[facility] [address]vuphytlhy[address] [place], [place] [address]Dr. Garima Heraclio CRPon 03-18-2023 CRP 0.1 mg/dL Normal <=1.0 [facility] Comment on above: Performed By: #### C RP ####[facility] Zcqzlpsohb[address] [place], [place] [address]Dr. Garima Heraclio PROF CHEM 8 (BAS METB)on Anion gap [Moles/Vol] 10.4 mmol/L Normal [facility] Comment on above: Performed By: #### B SQUIRREL MAN, BMP ####[facility] [address]bqgalrdgt[address] [place], [place] [address]Dr. Garima Heraclio Calcium [Mass/Vol] 8.8 mg/dL Normal 8.5-10.1 [facility] Comment on above: Performed By: #### B SQUIRREL MAN, BMP ####[facility] Eryxsupsij[address] [place], [place] [address]Dr. Garima Heraclio Chloride [Moles/Vol] 97 mmol/L Critically low 98-107 [facility] Comment on above: Performed By: #### B SQUIRREL MAN, BMP ####[facility] Ynnapogogu[address] [place], [place] [address]Dr. Garima Pulliam CO2 [Moles/Vol] 31.2 mmol/L Normal 21.0-32.0 [facility] Comment on above: Performed By: #### B SQUIRREL MAN, BMP ####[facility] Xphdjzglms[address] [place], [place] [address]Dr. Garima Pulliam Creatinine [Mass/Vol] 0.91 mg/dL Normal 0.70-1.30 [facility] Comment on above: Performed By: #### B SQUIRREL MAN, BMP ####[facility] Ixunocofus[address] [place] [address]Dr. Garima Pulliam EGFR-AF KYRGYZ >60 Normal >=60 [facility] Comment on above: Performed By: #### B SQUIRREL MAN, BMP ####[facility] [address]efuceaifv[address] [place] [id number]. Garima Pulliam EGFR-NON AF KYRGYZ >60 Normal >=60 [facility] Comment on above: Performed By: #### B SQUIRREL MAN, BMP ####[facility] M[address]zbqil[address] [place] [address]Dr. Garima Pulliam Glucose [Mass/Vol] 315 mg/dL Critically high 74-106 [facility] Comment on above: Performed By: #### B SQUIRREL MAN, BMP ####[facility] Gmajmttlll[address] [place] [address]Dr. Garima Pulliam Potassium [Moles/Vol] 3.6 mmol/L Normal 3.5-5.1 [facility] Comment on above: Performed By: #### B SQUIRREL MAN, BMP ####[facility] Symfnofxdf[address] [place] [address]Dr. Garima Pulliam Sodium [Moles/Vol] 135 mmol/L Critically low 136-145 [facility] Comment on above: Performed By: #### B SQUIRREL MAN, BMP ####[facility] Ibjnvckxyd18[address] [place] [address]Dr. Garima Pulliam Urea nitrogen [Mass/Vol] 7.0 mg/dL Normal 7.0-18.0 [facility] Comment on above: Performed By: #### B SQUIRREL MAN, BMP ####[facility] Xonieqlfjn[address] [place] [address]Dr. Garima Pulliam Urea nitrogen/Creatinine [Mass ratio] 7.7 mg/mg Normal [facility] Comment on above: Performed By: #### B SQUIRREL MAN, BMP ####[facility] Kmnbtbexkp[address] [place] [address]Dr. Garima Pulliam SED RATE WESTERGRENon 2022 SED RATE 8 mm/hr Normal <=20 [facility] Comment on above: Performed By: #### S EDR ####[facility] Botuvhhwzj[address] [place], [place] [address]Dr. Garima Pulliam BNPon 03-16-2023 Natriuretic peptide B (Bld) [Mass/Vol] 241.0 pg/mL Normal <=900.0 [facility] Comment on above: Performed By: #### B SQUIRREL MAN, BMP, HSTROPN ####[facility] Nkviivekbj[address] [place], [place] [address]Dr. Garima Heraclio CBC AUTO DIFFon 03-16-2023 BASO # 0.0 103/ul Normal 0.0-0.1 [facility] Comment on above: Performed By: #### C BC ####[facility] Bgnexhuzol[address] [place], [place] [address]Dr. Chapisrenu Pulliam Basophils/100 WBC (Bld) 0.2 % Normal 0.2-2.0 [facility] Comment on above: Performed By: #### C BC ####[facility] Afaeilazqj[address] [place], [place] [address]Dr. Garima Pulliam EO # 0.2 103/ul Normal 0.0-0.7 [facility] Comment on above: Performed By: #### C BC ####[facility] Dmeewewsrm[address] [place], [place] [address]Dr. Chapisrenu Pulliam Eosinophils/100 WBC (Bld) 2.7 % Normal 0.9-7.0 [facility] Comment on above: Performed By: #### C BC ####[facility] Zkmilgjily[address] [place], [place] [address]Dr. Garima Pulliam Erythrocyte distribution width (RBC) [Ratio] 13.1 % Normal 11.0-15.0 [facility] Comment on above: Performed By: #### C BC ####[facility] Tnej[address]wwjb[address] [place], [place] [address]Dr. Garima Pulliam Hematocrit (Bld) [Volume fraction] 41.8 % Critically low 42.0-54.0 [facility] Comment on above: Performed By: #### C BC ####[facility] [address]fep[address] [place] [address]Dr. Garima Pulliam Hemoglobin (Bld) [Mass/Vol] 14.0 g/dL Normal 14.0-18.0 [facility] Comment on above: Performed By: #### C BC ####[facility] Ex[address]smqhd[address] [place] [address]Dr. Garima Pulliam IG # 0.03 10e3/ul Normal 0.00-0.03 [facility] Comment on above: Performed By: #### C BC ####[facility] [facility] [address] [place] [address]Dr. Garima Pulliam IG % 0.3 % Normal 0.0-0.5 [facility] Comment on above: Performed By: #### C BC ####[facility] Bqnhowrm[address] [place], [place] [address]Dr. Chapisrenu Pulliam LYMPH # 2.1 103/ul Normal 1.2-3.8 [facility] Comment on above: Performed By: #### C BC ####[facility] [address]fe[address] [place], [place] [address]Dr. Chapisrenu Pulliam Lymphocytes/100 WBC (Bld) 24.2 % Normal 20.5-60.0 [facility] Comment on above: Performed By: #### C BC ####[facility] [address] [place] [address]Dr. Garima Pulliam MANUAL DIFF REQ NO Normal [facility] Comment on above: Performed By: #### C BC ####[facility] [address] [place] [address]Dr. Garima Pulliam MCH (RBC) [Entitic mass] 30.2 pg Normal 25.9-34.0 [facility] Comment on above: Performed By: #### C BC ####[facility] [address] [place] [address]Dr. Garima Pulliam MCHC (RBC) [Mass/Vol] 33.5 g/dL Normal 29.9-35.2 [facility] Comment on above: Performed By: #### C BC ####[facility] [address] [place] [id number]. Garima Pulliam MCV (RBC) [Entitic vol] 90.1 fL Normal 80.0-94.0 [facility] Comment on above: Performed By: #### C BC ####[facility] [address] [place] [id number]. Garima Pulliam MONO # 0.6 103/ul Normal 0.3-0.8 [facility] Comment on above: Performed By: #### C BC ####[facility] Icos[address]av[address] [place] [address]Dr. Garima Heraclio Monocytes/100 WBC (Bld) 7.4 % Normal 1.7-12.0 [facility] Comment on above: Performed By: #### C BC ####[facility] [address] [place], [place] [address]Dr. Garima Pulliam NEUT # 5.6 103/ul Normal 1.4-6.5 [facility] Comment on above: Performed By: #### C BC ####[facility] Ennqcy[address]oy[address] [place], [place] [address]Dr. Garima Heraclio Neutrophils/100 WBC (Bld) 65.2 % Normal 43.0-75.0 [facility] Comment on above: Performed By: #### C BC ####[facility] [address]we[address]ujwp[address] [place] [id number]. Garima Heraclio Platelet mean volume (Bld) [Entitic vol] 8.7 fL Critically low 9.5-13.5 [facility] Comment on above: Performed By: #### C BC ####[facility] [address] [place], [place] [id number]. Garima Heraclio PLT 195 103/ul Normal 150-450 [facility] Comment on above: Performed By: #### C BC ####[facility] [address]ticif[address] [place] [id number]. Garima Pulliam RBC 4.64 106/ul Critically low 4.70-6.10 [facility] Comment on above: Performed By: #### C BC ####[facility] [address] [place] [address]Dr. Garima Pulliam WBC 8.6 103/ul Normal 4.0-11.0 [facility] Comment on above: Performed By: #### C BC ####[facility] [address]yn[address] [place] [address]Dr. Garima Pulliam PROF CHEM 8 (BAS METB)on Anion gap [Moles/Vol] 6.7 mmol/L Normal [facility] Comment on above: Performed By: #### B SQUIRREL MAN, BMP, HSTROPN ####[facility] [address] [place] [address]Dr. Garima Pulliam Calcium [Mass/Vol] 8.8 mg/dL Normal 8.5-10.1 [facility] Comment on above: Performed By: #### B SQUIRREL MAN, BMP, HSTROPN ####[facility] Quhe[address]pxmi[address] [place], [place] [address]Dr. Garima Pulliam Chloride [Moles/Vol] 106 mmol/L Normal 98-107 [facility] Comment on above: Performed By: #### B SQUIRREL MAN, BMP, HSTROPN ####[facility] Fkcwrkzuvr[address] [place], [place] [address]Dr. Garima Pulliam CO2 [Moles/Vol] 31.4 mmol/L Normal 21.0-32.0 [facility] Comment on above: Performed By: #### B SQUIRREL MAN, BMP, HSTROPN ####[facility] Aszh[address] [place], [place] [address]Dr. Garima Pulliam Creatinine [Mass/Vol] 0.75 mg/dL Normal 0.70-1.30 [facility] Comment on above: Performed By: #### B SQUIRREL MAN, BMP, HSTROPN ####[facility] [address] [place] [address]Dr. Garima Pulliam EGFR-AF KYRGYZ >60 Normal >=60 [facility] Comment on above: Performed By: #### B SQUIRREL MAN, BMP, HSTROPN ####[facility] [address] [place] [address]Dr. Garima Pulliam EGFR-NON AF KYRGYZ >60 Normal >=60 [facility] Comment on above: Performed By: #### B SQUIRREL MAN, BMP, HSTROPN ####[facility] [address] [place] [address]Dr. Garima Pulliam Glucose [Mass/Vol] 161 mg/dL Critically high 74-106 [facility] Comment on above: Performed By: #### B SQUIRREL MAN, BMP, HSTROPN ####[facility] Y[address]wmn[address] [place] [address]Dr. Garima Pulliam Potassium [Moles/Vol] 4.1 mmol/L Normal 3.5-5.1 [facility] Comment on above: Performed By: #### B SQUIRREL MAN, BMP, HSTROPN ####[facility] [address]jjywm[address] [place] [address]Dr. Garima Pulliam Sodium [Moles/Vol] 140 mmol/L Normal 136-145 [facility] Comment on above: Performed By: #### B SQUIRREL MAN, BMP, HSTROPN ####[facility] [address]juu[address]oyqdn[address] [place] [address]Dr. Garima Pulliam Urea nitrogen [Mass/Vol] 7.0 mg/dL Normal 7.0-18.0 [facility] Comment on above: Performed By: #### B SQUIRREL MAN, BMP, HSTROPN ####[facility] [address] [place] [address]Dr. Garima Pulliam Urea nitrogen/Creatinine [Mass ratio] 9.3 mg/mg Normal [facility] Comment on above: Performed By: #### B SQUIRREL MAN, BMP, HSTROPN ####[facility] [address] [place] [address]Dr. Garima Pulliam TROPONIN, HIGH SENSITIVITYon 03-16-2023 HSTROP 9.7 pg/mL Normal 4.0-76.1 [facility] Comment on above: Result Comment: CUT- OFF POINTS HAVE BEEN ESTABLISHED BASED ON THE FOURTH UNIVERSAL DEFINITIONS OF MYOCARDIALINFARCTION. THE UPPER REFERENCE LIMIT (URL) OF TROPONIN, DEFINED THE 99TH PERCENTILE OFcTnI DISTRIBUTION IN A REFERENCE POPULATION, HAS BEEN CONFIRMED THE DECISION THRESHOLDFOR VA DIAGNOSIS. Performed By: #### B SQUIRREL MAN, BMP, HSTROPN ####[facility] [address] [place] [address]Dr. Garima Pulliam XR CHEST 1 Von 03-16-2023 XR CHEST 1 V Normal [facility] BNPon 03-06-2023 Natriuretic peptide B (Bld) [Mass/Vol] 111.0 pg/mL Normal <=900.0 [facility] Comment on above: Performed By: #### C MP, BNP, CK ####[facility] [address] [place] [address]Dr. Chapisrenu Pulliam CBC AUTO DIFFon 03-06-2023 BASO # 0.0 103/ul Normal 0.0-0.1 [facility] Comment on above: Performed By: #### C BC ####[facility] W[address]vruse[address] [place], [place] [address]Dr. Garima Pulliam Basophils/100 WBC (Bld) 0.2 % Normal 0.2-2.0 [facility] Comment on above: Performed By: #### C BC ####[facility] T[address]wq[address] [place], [place] [address]Dr. Garima Pulliam EO # 0.3 103/ul Normal 0.0-0.7 [facility] Comment on above: Performed By: #### C BC ####[facility] P[address]vljfcw[address] [place], [place] [address]Dr. Garima Pulliam Eosinophils/100 WBC (Bld) 3.5 % Normal 0.9-7.0 [facility] Comment on above: Performed By: #### C BC ####[facility] E[address]msonofp[address] [place], [place] [address]Dr. Garima Pulliam Erythrocyte distribution width (RBC) [Ratio] 13.3 % Normal 11.0-15.0 [facility] Comment on above: Performed By: #### C BC ####[facility] Cushgenjlj[address] [place], [place] [address]Dr. Garima Pulliam Hematocrit (Bld) [Volume fraction] 43.7 % Normal 42.0-54.0 [facility] Comment on above: Performed By: #### C BC ####[facility] [address] [place] [address]Dr. Garima Pulliam Hemoglobin (Bld) [Mass/Vol] 14.7 g/dL Normal 14.0-18.0 [facility] Comment on above: Performed By: #### C BC ####[facility] [address] [place] [address]Dr. Chapisrenu Heraclio IG # 0.03 10e3/ul Normal 0.00-0.03 [facility] Comment on above: Performed By: #### C BC ####[facility] Wiys[address]vlpq[address] [place], [place] [address]Dr. Garima Pulliam IG % 0.4 % Normal 0.0-0.5 [facility] Comment on above: Performed By: #### C BC ####[facility] [address]sszv[address] [place], [place] [address]Dr. Garima Pulliam LYMPH # 2.0 103/ul Normal 1.2-3.8 [facility] Comment on above: Performed By: #### C BC ####[facility] Y[address]ams[address]ff[address] [place], [place] [address]DrAdalberto Pulliam Lymphocytes/100 WBC (Bld) 23.7 % Normal 20.5-60.0 [facility] Comment on above: Performed By: #### C BC ####[facility] [address] [place] [address]Dr. Garima Pulliam MANUAL DIFF REQ NO Normal [facility] Comment on above: Performed By: #### C BC ####[facility] [address] [place] [id number] Pulliam MCH (RBC) [Entitic mass] 30.1 pg Normal 25.9-34.0 [facility] Comment on above: Performed By: #### C BC ####[facility] Aff[address]ysshd[address] [place] [id number]. Garima Pulliam MCHC (RBC) [Mass/Vol] 33.6 g/dL Normal 29.9-35.2 [facility] Comment on above: Performed By: #### C BC ####[facility] [address]xx[address] [place] [address]Dr. Garima Heraclio MCV (RBC) [Entitic vol] 89.4 fL Normal 80.0-94.0 [facility] Comment on above: Performed By: #### C BC ####[facility] Yy[address]urt[address] [place] [address]Dr. Garima Pulliam MONO # 0.8 103/ul Normal 0.3-0.8 [facility] Comment on above: Performed By: #### C BC ####[facility] Hxyspmvfxk[address] [place] [address]Dr. Garima Pulliam Monocytes/100 WBC (Bld) 9.0 % Normal 1.7-12.0 [facility] Comment on above: Performed By: #### C BC ####[facility] Pr[address]faulfu[address] [place], [place] [address]Dr. Garima Pulliam NEUT # 5.4 103/ul Normal 1.4-6.5 [facility] Comment on above: Performed By: #### C BC ####[facility] Xvvs[address]ghfa[address] [place], [place] [address]Dr. Garima Pulliam Neutrophils/100 WBC (Bld) 63.2 % Normal 43.0-75.0 [facility] Comment on above: Performed By: #### C BC ####[facility] [address]ozsm[address] [place], [place] [address]Dr. Garima Pulliam Platelet mean volume (Bld) [Entitic vol] 9.0 fL Critically low 9.5-13.5 [facility] Comment on above: Performed By: #### C BC ####[facility] [address]ypqx[address] [place], [place] [address]Dr. Garima Pulliam PLT 218 103/ul Normal 150-450 [facility] Comment on above: Performed By: #### C BC ####[facility] [address] [place] [id number]. Garima Pulliam RBC 4.89 106/ul Normal 4.70-6.10 [facility] Comment on above: Performed By: #### C BC ####[facility] [address]bw[address] [place] [address]Dr. Garima Pulliam WBC 8.5 103/ul Normal 4.0-11.0 [facility] Comment on above: Performed By: #### C BC ####[facility] Sup[address]wmqwc[address] [place] [address]Dr. Garima Pulliam CPKon 03-06-2023 CK [Catalytic activity/Vol] 191 U/L Normal 39-308 [facility] Comment on above: Performed By: #### C MP, BNP, CK ####[facility] [address] [place] [address]Dr. Garima Pulliam PROF 14(COMP METB)on 023 Albumin [Mass/Vol] 3.6 g/dL Normal 3.4-5.0 [facility] Comment on above: Performed By: #### C MP, BNP, CK ####[facility] [address]swtevscy[address] [place] [address]Dr. Garima Pulliam Albumin/Globulin [Mass ratio] 1.2 {ratio} Normal [facility] Comment on above: Performed By: #### C MP, BNP, CK ####[facility] [address]pidl[address] [place] [address]Dr. Garima Pulliam ALP [Catalytic activity/Vol] 91 U/L Normal 46-116 [facility] Comment on above: Performed By: #### C MP, BNP, CK ####[facility] [address]fmess[address] [place] [address]Dr. Garima Pulliam ALT [Catalytic activity/Vol] 33 U/L Normal 16-63 [facility] Comment on above: Performed By: #### C MP, BNP, CK ####[facility] V[address]lekpzp[address] [place] [address]Dr. Garima Pulliam Anion gap [Moles/Vol] 10.3 mmol/L Normal [facility] Comment on above: Performed By: #### C MP, BNP, CK ####[facility] [address]ys[address]bos[address] [place] [address]Dr. Garima Pulliam AST [Catalytic activity/Vol] 17 U/L Normal 15-37 [facility] Comment on above: Performed By: #### C MP, BNP, CK ####[facility] [address]piwcdqa[address] [place] [address]Dr. Garima Pulliam Bilirubin [Mass/Vol] 0.4 mg/dL Normal 0.2-1.0 [facility] Comment on above: Performed By: #### C MP, BNP, CK ####[facility] [address]ozyqskejs[address] [place] [address]Dr. Garima Pulliam Calcium [Mass/Vol] 9.1 mg/dL Normal 8.5-10.1 [facility] Comment on above: Performed By: #### C MP, BNP, CK ####[facility] [address] [place] [address]Dr. Garima Pulliam Chloride [Moles/Vol] 102 mmol/L Normal 98-107 [facility] Comment on above: Performed By: #### C MP, BNP, CK ####[facility] [address]qsc[address]okpig[address] [place] [address]Dr. Garima Pulliam CO2 [Moles/Vol] 29.7 mmol/L Normal 21.0-32.0 [facility] Comment on above: Performed By: #### C MP, BNP, CK ####[facility] Obj[address]ywdqr[address] [place] [address]Dr. Garima Pulliam Creatinine [Mass/Vol] 0.79 mg/dL Normal 0.70-1.30 [facility] Comment on above: Performed By: #### C MP, BNP, CK ####[facility] [address]pc[address]rosr[address] [place] [address]Dr. Garima Pulliam EGFR-AF KYRGYZ >60 Normal >=60 [facility] Comment on above: Performed By: #### C MP, BNP, CK ####[facility] [address]od[address]xyemh[address] [place] [address]Dr. Garima Pulliam EGFR-NON AF KYRGYZ >60 Normal >=60 [facility] Comment on above: Performed By: #### C MP, BNP, CK ####[facility] [address]zz[address]ipejq[address] [place] [address]Dr. Garima Pulliam Globulin (S) [Mass/Vol] 3.0 g/dL Normal [facility] Comment on above: Performed By: #### C MP, BNP, CK ####[facility] [address]zfs[address] [place] [address]Dr. Garima Pulliam Glucose [Mass/Vol] 202 mg/dL Critically high 74-106 [facility] Comment on above: Performed By: #### C MP, BNP, CK ####[facility] Xvtqeeftyv[address] [place] [address]Dr. Garima Pulliam Potassium [Moles/Vol] 4.0 mmol/L Normal 3.5-5.1 [facility] Comment on above: Performed By: #### C MP, BNP, CK ####[facility] T[address]jjerowt[address] [place] [address]Dr. Garima Pulliam Protein [Mass/Vol] 6.6 g/dL Normal 6.4-8.2 [facility] Comment on above: Performed By: #### C MP, BNP, CK ####[facility] Umzgawlaxm[address] [place], [place] [address]Dr. Garima Pulliam Sodium [Moles/Vol] 138 mmol/L Normal 136-145 [facility] Comment on above: Performed By: #### C MP, BNP, CK ####[facility] Oqjncgrvvk[address] [place], [place] [address]Dr. Garima Pulliam Urea nitrogen [Mass/Vol] 10.0 mg/dL Normal 7.0-18.0 [facility] Comment on above: Performed By: #### C MP, BNP, CK ####[facility] [address]rzjtnr[address] [place] [address]Dr. Garima Pulliam Urea nitrogen/Creatinine [Mass ratio] 12.7 mg/mg Normal [facility] Comment on above: Performed By: #### C MP, BNP, CK ####[facility] [address]zxtd[address] [place] [address]Dr. Garima Pulliam US VERONICA DOP LEG BILon 023 US VERONICA DOP LEG BENOIT Normal [facility] CBC AUTO DIFFon 01-13-2023 BASO # 0.0 103/ul Normal 0.0-0.1 [facility] Comment on above: Performed By: #### C BC ####[facility] [address]xdrox[address] [place] [id number]. Chapisrenu Pulliam Basophils/100 WBC (Bld) 0.0 % Critically low 0.2-2.0 [facility] Comment on above: Performed By: #### C BC ####[facility] Zzbym[address]ub[address] [place] [address]Dr. Garima Pulliam EO # 0.0 103/ul Normal 0.0-0.7 [facility] Comment on above: Performed By: #### C BC ####[facility] Wyrmejbvka[address] [place], [place] [address]Dr. Garima Pulliam Eosinophils/100 WBC (Bld) 0.0 % Critically low 0.9-7.0 [facility] Comment on above: Performed By: #### C BC ####[facility] [address]ptovrguk[address] [place] [address]Dr. Garima Pulliam Erythrocyte distribution width (RBC) [Ratio] 13.2 % Normal 11.0-15.0 [facility] Comment on above: Performed By: #### C BC ####[facility] [address]vbgtkwfzi[address] [place], [place] [address]Dr. Garima Pulliam Hematocrit (Bld) [Volume fraction] 46.7 % Normal 42.0-54.0 [facility] Comment on above: Performed By: #### C BC ####[facility] Rbinkqvwyi[address] [place], [place] [address]Dr. Garima Pulliam Hemoglobin (Bld) [Mass/Vol] 15.6 g/dL Normal 14.0-18.0 [facility] Comment on above: Performed By: #### C BC ####[facility] [address]af[address]amkyt[address] [place], [place] [address]Dr. Garima Pulliam IG # 0.01 10e3/ul Normal 0.00-0.03 [facility] Comment on above: Performed By: #### C BC ####[facility] Idpaarvbxx85[address] [place] [id number]. Garima Pulliam IG % 0.2 % Normal 0.0-0.5 [facility] Comment on above: Performed By: #### C BC ####[facility] K[address]ijycmnp48[address] [place] [id number]. Garima Pulliam LYMPH # 0.8 103/ul Critically low 1.2-3.8 [facility] Comment on above: Performed By: #### C BC ####[facility] Qygjqueuqb5782 [place] [id number]. Garima Pulliam Lymphocytes/100 WBC (Bld) 12.7 % Critically low 20.5-60.0 [facility] Comment on above: Performed By: #### C BC ####[facility] [address]dsxzsdlo[address] [place] [address]Dr. Garima Pulliam MANUAL DIFF REQ NO Normal [facility] Comment on above: Performed By: #### C BC ####[facility] Bfxawkpsln7060 [place] [id number]. Garima Pulliam MCH (RBC) [Entitic mass] 30.2 pg Normal 25.9-34.0 [facility] Comment on above: Performed By: #### C BC ####[facility] Npryzcpsqp64[address] [place] [id number]. Garima Pulliam MCHC (RBC) [Mass/Vol] 33.4 g/dL Normal 29.9-35.2 [facility] Comment on above: Performed By: #### C BC ####[facility] Crxneqjxis1084 [place] [id number]. Garima Pulliam MCV (RBC) [Entitic vol] 90.3 fL Normal 80.0-94.0 [facility] Comment on above: Performed By: #### C BC ####[facility] Ycskeayihh[address] [place] [id number]. Garima Heraclio MONO # 0.1 103/ul Critically low 0.3-0.8 [facility] Comment on above: Performed By: #### C BC ####[facility] Oifztnbecm65[address] [place] [id number]. Garima Pulliam Monocytes/100 WBC (Bld) 0.9 % Critically low 1.7-12.0 [facility] Comment on above: Performed By: #### C BC ####[facility] Ohvotstqid32[address] [place] [id number]. Garima Pulliam NEUT # 5.6 103/ul Normal 1.4-6.5 [facility] Comment on above: Performed By: #### C BC ####[facility] Gozsdotels2227 [place] [id number]. Garima Pulliam Neutrophils/100 WBC (Bld) 86.2 % Critically high 43.0-75.0 [facility] Comment on above: Performed By: #### C BC ####[facility] Gfdmzgaphj[address] [place] [address]Dr. Garima Pulliam Platelet mean volume (Bld) [Entitic vol] 9.1 fL Critically low 9.5-13.5 [facility] Comment on above: Performed By: #### C BC ####[facility] V[address]ss[address]cip[address] [place], [place] [address]Dr. Garima Pulliam PLT 169 103/ul Normal 150-450 [facility] Comment on above: Performed By: #### C BC ####[facility] G[address]kbmzznc[address] [place], [place] [address]Dr. Garima Pulliam RBC 5.17 106/ul Normal 4.70-6.10 [facility] Comment on above: Performed By: #### C BC ####[facility] [address] [place], [place] [id number]. Garima Pulliam WBC 6.5 103/ul Normal 4.0-11.0 [facility] Comment on above: Performed By: #### C BC ####[facility] N[address]iczxkif[address] [place], [place] [address]Dr. Garima Pulliam D-DIMERon 01-13-2023 D-DIMER 0.41 mg/L FEU Normal <=0.59 [facility] Comment on above: Performed By: #### D DIM ####[facility] Tvcus[address]ucqd[address] [place] [address]Dr. Garima Pulliam D-DIMER COMMENTS SEE BELOW Normal [facility] [...] generalized hospitalization. Performed By: #### D DIM ####[facility] [address]crgsxske[address] [place], [place] [address]Dr. Garima Pulliam PROF 14(COMP METB)on 023 Albumin [Mass/Vol] 3.4 g/dL Normal 3.4-5.0 [facility] Comment on above: Performed By: #### C MP ####[facility] Vmbjrzncuq[address] [place], [place] [address]Dr. Garima Pulliam Albumin/Globulin [Mass ratio] 1.3 {ratio} Normal [facility] Comment on above: Performed By: #### C MP ####[facility] Oatibtudvn0[address] [place], [place] [address]Dr. Garima Pulliam ALP [Catalytic activity/Vol] 83 U/L Normal 46-116 [facility] Comment on above: Performed By: #### C MP ####[facility] Ebffmqbaqi[address] [place], [place] [address]Dr. Garima Pulliam ALT [Catalytic activity/Vol] 25 U/L Normal 16-63 [facility] Comment on above: Performed By: #### C MP ####[facility] Xemtgwitvb[address] [place] [address]Dr. Garima Pulliam Anion gap [Moles/Vol] 14.5 mmol/L Normal [facility] Comment on above: Performed By: #### C MP ####[facility] Egnanbmgxa[address] [place], [place] [address]Dr. Garima Pulliam AST [Catalytic activity/Vol] 19 U/L Normal 15-37 [facility] Comment on above: Performed By: #### C MP ####[facility] Xuqu[address]axxgh[address] [place], [place] [address]Dr. Garima Pulliam Bilirubin [Mass/Vol] 0.4 mg/dL Normal 0.2-1.0 [facility] Comment on above: Performed By: #### C MP ####[facility] Anho[address]ayft[address] [place], [place] [address]Dr. Garima Pulliam Calcium [Mass/Vol] 8.7 mg/dL Normal 8.5-10.1 [facility] Comment on above: Performed By: #### C MP ####[facility] Srlwwsuviq[address] [place], [place] [address]Dr. Garima Pulliam Chloride [Moles/Vol] 104 mmol/L Normal 98-107 [facility] Comment on above: Performed By: #### C MP ####[facility] Jsttozkzgu[address] [place], [place] [address]Dr. Garima Pulliam CO2 [Moles/Vol] 24.5 mmol/L Normal 21.0-32.0 [facility] Comment on above: Performed By: #### C MP ####[facility] [address]epsqdqdzk[address] [place], [place] [address]Dr. Garima Pulliam Creatinine [Mass/Vol] 0.70 mg/dL Normal 0.70-1.30 [facility] Comment on above: Performed By: #### C MP ####[facility] [address]fszwoiywh[address] [place], [place] [address]Dr. Garima Heraclio EGFR-AF KYRGYZ >60 Normal >=60 [facility] Comment on above: Performed By: #### C MP ####[facility] [address]udjjntqj[address] [place], [place] [address]Dr. Chapisrenu Heraclio EGFR-NON AF KYRGYZ >60 Normal >=60 [facility] Comment on above: Performed By: #### C MP ####[facility] [address]vs[address]by[address] [place], [place] [address]Dr. Chapisrenu Pulliam Globulin (S) [Mass/Vol] 2.6 g/dL Normal [facility] Comment on above: Performed By: #### C MP ####[facility] [address] [place] [address]Dr. Garima Pulliam Glucose [Mass/Vol] 196 mg/dL Critically high 74-106 [facility] Comment on above: Performed By: #### C MP ####[facility] T[address] [place] [address]Dr. Garima Pulliam Potassium [Moles/Vol] 4.0 mmol/L Normal 3.5-5.1 [facility] Comment on above: Performed By: #### C MP ####[facility] [address] [place] [address]Dr. Garima Pulliam Protein [Mass/Vol] 6.0 g/dL Critically low 6.4-8.2 [facility] Comment on above: Performed By: #### C MP ####[facility] F[address]wc[address] [place], [place] [address]Dr. Garima Pulliam Sodium [Moles/Vol] 139 mmol/L Normal 136-145 [facility] Comment on above: Performed By: #### C MP ####[facility] Rarxelpqvw[address] [place], [place] [address]Dr. Garima Pulliam Urea nitrogen [Mass/Vol] 7.0 mg/dL Normal 7.0-18.0 [facility] Comment on above: Performed By: #### C MP ####[facility] Msnyqunrm[address] [place], [place] [address]Dr. Garima Heraclio Urea nitrogen/Creatinine [Mass ratio] 10.0 mg/mg Normal [facility] Comment on above: Performed By: #### C MP ####[facility] Wohxuqpakb[address] [place], [place] [address]Dr. Garima Heraclio BNPon 01-12-2023 Natriuretic peptide B (Bld) [Mass/Vol] 141.0 pg/mL Normal <=900.0 [facility] Comment on above: Performed By: #### C MP, BNP, HSTROPN ####[facility] Zltledlbhs[address] [place], [place] [address]Dr. Garima Heraclio CBC AUTO DIFFon 01-12-2023 BASO # 0.0 103/ul Normal 0.0-0.1 [facility] Comment on above: Performed By: #### C BC ####[facility] [address] [place] [id number]. Garima Heraclio Basophils/100 WBC (Bld) 0.2 % Normal 0.2-2.0 [facility] Comment on above: Performed By: #### C BC ####[facility] [address]qe[address] [place] [address]Dr. Garima Heraclio EO # 0.2 103/ul Normal 0.0-0.7 [facility] Comment on above: Performed By: #### C BC ####[facility] [address]iv[address] [place] [address]Dr. Garima Heraclio Eosinophils/100 WBC (Bld) 2.7 % Normal 0.9-7.0 [facility] Comment on above: Performed By: #### C BC ####[facility] Gercv[address] [place], [place] [address]Dr. Garima Pulliam Erythrocyte distribution width (RBC) [Ratio] 13.3 % Normal 11.0-15.0 [facility] Comment on above: Performed By: #### C BC ####[facility] [address]tbnwmiavv[address] [place], [place] [address]Dr. Garima Pulliam Hematocrit (Bld) [Volume fraction] 42.3 % Normal 42.0-54.0 [facility] Comment on above: Performed By: #### C BC ####[facility] Krrnkhowjn[address] [place], [place] [address]Dr. Garima Pulliam Hemoglobin (Bld) [Mass/Vol] 14.3 g/dL Normal 14.0-18.0 [facility] Comment on above: Performed By: #### C BC ####[facility] Mdcoilmwdy[address] [place], [place] [address]Dr. Garima Pulliam IG # 0.02 10e3/ul Normal 0.00-0.03 [facility] Comment on above: Performed By: #### C BC ####[facility] [address] [place] [id number]. Garima Pulliam IG % 0.2 % Normal 0.0-0.5 [facility] Comment on above: Performed By: #### C BC ####[facility] [address]ijclq[address] [place] [id number]. Garima Pulliam LYMPH # 2.6 103/ul Normal 1.2-3.8 [facility] Comment on above: Performed By: #### C BC ####[facility] [address]zyr[address] [place] [id number]. Garima Heraclio Lymphocytes/100 WBC (Bld) 29.6 % Normal 20.5-60.0 [facility] Comment on above: Performed By: #### C BC ####[facility] [address]ynj[address] [place] [address]Dr. Garima Heraclio MANUAL DIFF REQ NO Normal [facility] Comment on above: Performed By: #### C BC ####[facility] [address]ell[address] [place] [id number]. Garima Pulliam MCH (RBC) [Entitic mass] 30.2 pg Normal 25.9-34.0 [facility] Comment on above: Performed By: #### C BC ####[facility] [address] [place] [address]Dr. Garima Pulliam MCHC (RBC) [Mass/Vol] 33.8 g/dL Normal 29.9-35.2 [facility] Comment on above: Performed By: #### C BC ####[facility] [address]ufxfcz[address] [place] [id number]. Garima Pulliam MCV (RBC) [Entitic vol] 89.2 fL Normal 80.0-94.0 [facility] Comment on above: Performed By: #### C BC ####[facility] Xshvatvyui[address] [place], [place] [address]Dr. Chapisrenu Pulliam MONO # 0.7 103/ul Normal 0.3-0.8 [facility] Comment on above: Performed By: #### C BC ####[facility] [address]ch[address] [place] [id number]. Garima Pulliam Monocytes/100 WBC (Bld) 8.3 % Normal 1.7-12.0 [facility] Comment on above: Performed By: #### C BC ####[facility] Xmfr[address]zltfz34[address] [place] [id number]. Garima Pulliam NEUT # 5.1 103/ul Normal 1.4-6.5 [facility] Comment on above: Performed By: #### C BC ####[facility] W[address]qopgcpp[address] [place] [id number]. Garima Pulliam Neutrophils/100 WBC (Bld) 59.0 % Normal 43.0-75.0 [facility] Comment on above: Performed By: #### C BC ####[facility] [address]vagc[address] [place] [address]Dr. Garima Pulliam Platelet mean volume (Bld) [Entitic vol] 8.7 fL Critically low 9.5-13.5 [facility] Comment on above: Performed By: #### C BC ####[facility] [address]hi[address] [place] [address]Dr. Garima Pulliam PLT 182 103/ul Normal 150-450 [facility] Comment on above: Performed By: #### C BC ####[facility] Ymhigdyhqv7[address] [place] [id number]. Garima Pulliam RBC 4.74 106/ul Normal 4.70-6.10 [facility] Comment on above: Performed By: #### C BC ####[facility] [address] [place], [place] [id number]. Garima Pulliam WBC 8.7 103/ul Normal 4.0-11.0 [facility] Comment on above: Performed By: #### C BC ####[facility] [address]wte[address] [place], [place] [address]Dr. Garima Pulliam Covid-19 PCR (CVDTB)on 12-25 SARS-CoV-2 (COVID-19) RNA MARIE+probe Ql (Unsp spec) Not detected Normal NOT DETECTED [facility] Comment on above: [...] for this test is supported by the [place] of Health and Human Service's declaration that [...] be used). Performed By: #### C VDTBH ####[facility] [address] [place] [address]Dr. Garima Pulliam PROF 14(COMP METB)on 023 Albumin [Mass/Vol] 3.6 g/dL Normal 3.4-5.0 [facility] Comment on above: Performed By: #### C MP, BNP, HSTROPN ####[facility] Temcafxiii[address] [place] [address]Dr. Garima Pulliam Albumin/Globulin [Mass ratio] 1.5 {ratio} Normal [facility] Comment on above: Performed By: #### C MP, BNP, HSTROPN ####[facility] [address]striu[address] [place] [address]Dr. Garima Pulliam ALP [Catalytic activity/Vol] 79 U/L Normal 46-116 [facility] Comment on above: Performed By: #### C MP, BNP, HSTROPN ####[facility] [address]qr[address] [place] [address]Dr. Garima Pulliam ALT [Catalytic activity/Vol] 27 U/L Normal 16-63 [facility] Comment on above: Performed By: #### C MP, BNP, HSTROPN ####[facility] Qib[address]ux[address]kmr[address] [place] [address]Dr. Garima Pulliam Anion gap [Moles/Vol] 11.7 mmol/L Normal [facility] Comment on above: Performed By: #### C MP, BNP, HSTROPN ####[facility] [address]lddsw[address] [place] [address]Dr. Garima Pulliam AST [Catalytic activity/Vol] 21 U/L Normal 15-37 [facility] Comment on above: Performed By: #### C MP, BNP, HSTROPN ####[facility] [address] [place] [address]Dr. Garima Pulliam Bilirubin [Mass/Vol] 0.3 mg/dL Normal 0.2-1.0 [facility] Comment on above: Performed By: #### C MP, BNP, HSTROPN ####[facility] K[address]xjezziu[address] [place] [address]Dr. Garima Pulliam Calcium [Mass/Vol] 8.9 mg/dL Normal 8.5-10.1 [facility] Comment on above: Performed By: #### C MP, BNP, HSTROPN ####[facility] [address] [place] [address]Dr. Garima Pulliam Chloride [Moles/Vol] 107 mmol/L Normal 98-107 [facility] Comment on above: Performed By: #### C MP, BNP, HSTROPN ####[facility] [address]yjc[address] [place] [address]Dr. Garima Pulliam CO2 [Moles/Vol] 26.0 mmol/L Normal 21.0-32.0 [facility] Comment on above: Performed By: #### C MP, BNP, HSTROPN ####[facility] [address]dp[address] [place] [address]Dr. Garima Pulliam Creatinine [Mass/Vol] 0.65 mg/dL Critically low 0.70-1.30 [facility] Comment on above: Performed By: #### C MP, BNP, HSTROPN ####[facility] [address] [place] [address]Dr. Yilan Pulliam EGFR-AF KYRGYZ >60 Normal >=60 [facility] Comment on above: Performed By: #### C MP, BNP, HSTROPN ####[facility] [address] [place] [address]Dr. Garima Pulliam EGFR-NON AF KYRGYZ >60 Normal >=60 [facility] Comment on above: Performed By: #### C MP, BNP, HSTROPN ####[facility] [address]cj[address] [place] [address]Dr. Garima Pulliam Globulin (S) [Mass/Vol] 2.4 g/dL Normal [facility] Comment on above: Performed By: #### C MP, BNP, HSTROPN ####[facility] [address]ikvwkmj[address] [place], [place] [address]Dr. Garima Pulliam Glucose [Mass/Vol] 85 mg/dL Normal 74-106 [facility] Comment on above: Performed By: #### C MP, BNP, HSTROPN ####[facility] [address]kt[address]ca[address] [place] [address]Dr. Garima Pulliam Potassium [Moles/Vol] 3.7 mmol/L Normal 3.5-5.1 [facility] Comment on above: Performed By: #### C MP, BNP, HSTROPN ####[facility] Yugcv[address]39[address] [place] [address]Dr. Garima Pulliam Protein [Mass/Vol] 6.0 g/dL Critically low 6.4-8.[address] [facility] Comment on above: Performed By: #### C MP, BNP, HSTROPN ####[facility] [address] [place] [address]Dr. Garima Pulliam Sodium [Moles/Vol] 141 mmol/L Normal 136-145 [facility] Comment on above: Performed By: #### C MP, BNP, HSTROPN ####[facility] [address] [place] [address]Dr. Garima Pulliam Urea nitrogen [Mass/Vol] 5.0 mg/dL Critically low 7.0-18.0 [facility] Comment on above: Performed By: #### C MP, BNP, HSTROPN ####[facility] [address]aiy[address] [place] [address]Dr. Garima Pulliam Urea nitrogen/Creatinine [Mass ratio] 7.7 mg/mg Normal [facility] Comment on above: Performed By: #### C MP, BNP, HSTROPN ####[facility] Elsv[address] [place] [address]Dr. Garima Pulliam PROTIMEon 01-12-2023 INR Coag (PPP) [Relative time] 1.16 {INR} Normal [facility] Comment on above: Performed By: #### P TT, PT ####[facility] Of[address]iytyuh[address] [place] [address]Dr. Garima Pulliam INR GUIDELINES SEE BELOW Normal [facility] Comment on above: Result Comment: WESLEY RED INR: 2.0 - 3.0 CONDITIONS NOT LISTED BELOW 2.5 - 3.5 FOR PROSTHETIC HEART VALVE REPLACEMENT 2.5 - 3.5 RECURRENT THROMBOSIS Performed By: #### P TT, PT ####[facility] [address]uf[address] [place], [place] [address]Dr. Garima Pulliam PT Coag (PPP) [Time] 12.2 s Critically high 9.0-11.6 [facility] Comment on above: Performed By: #### P TT, PT ####[facility] A[address] [place] [address]Dr. Garima Pulliam PTTon 01-12-2023 aPTT Coag (Bld) [Time] 29.1 s Normal 22.3-36.2 [facility] Comment on above: Performed By: #### P TT, PT ####[facility] Scl[address]fs[address] [place], [place] [address]Dr. Garima Pulliam TROPONIN, HIGH SENSITIVITYon 01-12-2023 HSTROP 10.3 pg/mL Normal 4.0-76.1 [facility] Comment on above: Result Comment: CUT- OFF POINTS HAVE BEEN ESTABLISHED BASED ON THE FOURTH UNIVERSAL DEFINITIONS OF MYOCARDIALINFARCTION. THE UPPER REFERENCE LIMIT (URL) OF TROPONIN, DEFINED THE 99TH PERCENTILE OFcTnI DISTRIBUTION IN A REFERENCE POPULATION, HAS BEEN CONFIRMED THE DECISION THRESHOLDFOR VA DIAGNOSIS. Performed By: #### H STROPN ####[facility] [address] [place] [address]Dr. Garima Pulliam HSTROP 9.2 pg/mL Normal 4.0-76.1 [facility] Comment on above: Result Comment: CUT- OFF POINTS HAVE BEEN ESTABLISHED BASED ON THE FOURTH UNIVERSAL DEFINITIONS OF MYOCARDIALINFARCTION. THE UPPER REFERENCE LIMIT (URL) OF TROPONIN, DEFINED THE 99TH PERCENTILE OFcTnI DISTRIBUTION IN A REFERENCE POPULATION, HAS BEEN CONFIRMED THE DECISION THRESHOLDFOR VA DIAGNOSIS. Performed By: #### C MP, BNP, HSTROPN ####[facility] [address]qn[address] [place] [address]Dr. Garima Pulliam XR CHEST 1 Von 01-12-2023 XR CHEST 1 V Normal [facility] XR CHEST 1 Von 01-01-2023 XR CHEST 1 V Normal [facility] CARDIAC NASH 3-6on 3 CK [Catalytic activity/Vol] 196 U/L Normal 39-308 [facility] Comment on above: Performed By: #### C MREP ####[facility] Jumpczkhew[address] [place] [address]Dr. Garima Pulliam CK.MB [Mass/Vol] 7.41 ng/mL Critically high <=3.60 [facility] Comment on above: Performed By: #### C MREP ####[facility] R[address]hvemho[address] [place] [address]Dr. Garima Pulliam HSTROP 10.3 pg/mL Normal 4.0-76.1 [facility] Comment on above: Result Comment: CUT- OFF POINTS HAVE BEEN ESTABLISHED BASED ON THE FOURTH UNIVERSAL DEFINITIONS OF MYOCARDIALINFARCTION. THE UPPER REFERENCE LIMIT (URL) OF TROPONIN, DEFINED THE 99TH PERCENTILE OFcTnI DISTRIBUTION IN A REFERENCE POPULATION, HAS BEEN CONFIRMED THE DECISION THRESHOLDFOR VA DIAGNOSIS. Performed By: #### C MREP ####[facility] [address] [place] [id number]. Garima Pulliam XR CHEST 1 Von 12-26-2022 XR CHEST 1 V Normal [facility] BNPon 12-25-2022 Natriuretic peptide B (Bld) [Mass/Vol] 98.0 pg/mL Normal <=900.0 [facility] Comment on above: Performed By: #### B MARVIN FRENCH CMADM ####[facility] [address]bet[address] [place] [address]Dr. Garima Pulliam CARDIAC NASH ADMITon 023 CK [Catalytic activity/Vol] 208 U/L Normal 39-308 [facility] Comment on above: Performed By: #### B MARVIN FRENCH CMADM ####[facility] R[address]xpewg[address] [place] [address]Dr. Garima Pulliam CK.MB [Mass/Vol] 7.63 ng/mL Critically high <=3.60 [facility] Comment on above: Performed By: #### B MARVIN FRENCH CMADM ####[facility] Oyukaolmpj[address] [place], [place] [address]Dr. Garima Pulliam HSTROP 8.8 pg/mL Normal 4.0-76.1 [facility] Comment on above: Result Comment: CUT- OFF POINTS HAVE BEEN ESTABLISHED BASED ON THE FOURTH UNIVERSAL DEFINITIONS OF MYOCARDIALINFARCTION. THE UPPER REFERENCE LIMIT (URL) OF TROPONIN, DEFINED THE 99TH PERCENTILE OFcTnI DISTRIBUTION IN A REFERENCE POPULATION, HAS BEEN CONFIRMED THE DECISION THRESHOLDFOR VA DIAGNOSIS. Performed By: #### B MARVIN FRENCH CMADM ####[facility] Ltignnmsuy[address] [place], [place] [address]Dr. Garima Pulliam DORIS 83 ng/mL Normal 16-96 [facility] Comment on above: Performed By: #### B MARVIN FRENCH CMADM ####[facility] Bakgsgfacv[address] [place], [place] [address]Dr. Garima Pulliam CBC AUTO DIFFon 12-25-2022 BASO # 0.0 103/ul Normal 0.0-0.1 [facility] Comment on above: Performed By: #### C BC ####[facility] Wbmxerfduy[address] [place], [place] [address]Dr. Garima Pulliam Basophils/100 WBC (Bld) 0.0 % Critically low 0.2-2.0 [facility] Comment on above: Performed By: #### C BC ####[facility] Wq[address]vlcujal[address] [place] [address]Dr. Garima Pulliam EO # 0.0 103/ul Normal 0.0-0.7 [facility] Comment on above: Performed By: #### C BC ####[facility] Sxqfnsh[address] [place], [place] [address]Dr. Garima Pulliam Eosinophils/100 WBC (Bld) 0.7 % Critically low 0.9-7.0 [facility] Comment on above: Performed By: #### C BC ####[facility] Qbsybhlulw[address] [place], [place] [address]Dr. Garima Pulliam Erythrocyte distribution width (RBC) [Ratio] 13.4 % Normal 11.0-15.0 [facility] Comment on above: Performed By: #### C BC ####[facility] Txtyloxmch[address] [place], [place] [address]Dr. Garima Pulliam Hematocrit (Bld) [Volume fraction] 42.9 % Normal 42.0-54.0 [facility] Comment on above: Performed By: #### C BC ####[facility] Ipcbsgilys[address] [place], [place] [address]Dr. Garima Pulliam Hemoglobin (Bld) [Mass/Vol] 14.4 g/dL Normal 14.0-18.0 [facility] Comment on above: Performed By: #### C BC ####[facility] Lgqxcajrih[address] [place], [place] [address]Dr. Garima Pulliam IG # 0.00 10e3/ul Normal 0.00-0.03 [facility] Comment on above: Performed By: #### C BC ####[facility] Ugpoegjoxp[address] [place], [place] [address]Dr. Garima Pulliam IG % 0.0 % Normal 0.0-0.5 [facility] Comment on above: Performed By: #### C BC ####[facility] Uhqpvzmnep[address] [place], [place] [address]Dr. Garima Pulliam LYMPH # 2.4 103/ul Normal 1.2-3.8 [facility] Comment on above: Performed By: #### C BC ####[facility] Hcjccrarex[address] [place] [id number]. Chapisrenu Pulliam Lymphocytes/100 WBC (Bld) 29.2 % Normal 20.5-60.0 [facility] Comment on above: Performed By: #### C BC ####[facility] Kwciinqldk79[address] [place] [id number]. Garima Pulliam MANUAL DIFF REQ NO Normal [facility] Comment on above: Performed By: #### C BC ####[facility] Rqtrbilogk13[address] [place] [id number]. Garima Pulliam MCH (RBC) [Entitic mass] 30.7 pg Normal 25.9-34.0 [facility] Comment on above: Performed By: #### C BC ####[facility] [address]kfcezzxt[address] [place], [place] [address]Dr. Garima Pulliam MCHC (RBC) [Mass/Vol] 33.6 g/dL Normal 29.9-35.2 [facility] Comment on above: Performed By: #### C BC ####[facility] Leszbqciki[address] [place], [place] [address]Dr. Garima Pulliam MCV (RBC) [Entitic vol] 91.5 fL Normal 80.0-94.0 [facility] Comment on above: Performed By: #### C BC ####[facility] Jhsicumkou[address] [place], [place] [address]Dr. Garima Pulliam MONO # 0.0 103/ul Critically low 0.3-0.8 [facility] Comment on above: Performed By: #### C BC ####[facility] Ny[address]wojw[address] [place] [address]Dr. Garima Pulliam Monocytes/100 WBC (Bld) 8.0 % Normal 1.7-12.0 [facility] Comment on above: Performed By: #### C BC ####[facility] Smriwnjykb[address] [place], [place] [address]Dr. Garima Pulliam NEUT # 5.1 103/ul Normal 1.4-6.5 [facility] Comment on above: Performed By: #### C BC ####[facility] Ez[address]uj[address] [place], [place] [address]Wp. Garima Pulliam Neutrophils/100 WBC (Bld) 62.8 % Normal 43.0-75.0 [facility] Comment on above: Performed By: #### C BC ####[facility] Nvytgyomek0690 [place], [place] [address]Qk. Garima Pulliam Platelet mean volume (Bld) [Entitic vol] 8.6 fL Critically low 9.5-13.5 [facility] Comment on above: Performed By: #### C BC ####[facility] [address]x6[address] [place] [id number]. Garima Pulliam PLT 200 103/ul Normal 150-450 [facility] Comment on above: Performed By: #### C BC ####[facility] T[address]udlf5[address] [place] [id number]. Garima Pulliam RBC 4.69 106/ul Critically low 4.70-6.10 [facility] Comment on above: Performed By: #### C BC ####[facility] Cknpbgxtzc8738 [place], [place] [address]Jg. Garima Pulliam WBC 8.2 103/ul Normal 4.0-11.0 [facility] Comment on above: Performed By: #### C BC ####[facility] Wzxynvcdcb1584 [place], [place] [address]Ne. Garima Pulliam [facility]on SARS-CoV-2 (COVID-19) RNA MARIE+probe Ql (Unsp spec) Not detected Normal NOT DETECTED [facility] Comment on above: [...] for this test is supported by the [place] of Health and Human Service's declaration that [...] be used). Performed By: #### C VDTBH ####[facility] G[address]bcuzkdct[address] [place], [place] [address]Dr. Garima Pulliam INFLUENZA A AND B AGon 12-25 INFLUANEGH SEE BELOW Normal [facility] Comment on above: Result Comment: Nega tive for Flu A protein angiten. Infection due to Flu A cannot be ruled out. Flu A angiten in the sample may be below the detection limit of the test. Performed By: #### I NFLUAB ####[facility] [address]kixlnubxg[address] [place], [place] [address]Dr. Garima Pulliam INFLUBNEGH SEE BELOW Normal [facility] Comment on above: Result Comment: Nega tive for Flu B protein antigen. Infection due to Flu B cannot be ruled out. Flu B antigen in the sample may be below the detection limit of the test. Performed By: #### I NFLUAB ####[facility] Wnvcafwugx[address] [place], [place] [address]Dr. Garima Pulliam INFLUENZA A AG Negative Normal NEGATIVE SEE COMMENT [facility] Comment on above: Performed By: #### I NFLUAB ####[facility] Wtktobpkee[address] [place], [place] [address]Dr. renu [facility] INFLUENZA B AG Negative Normal NEGATIVE SEE COMMENT [facility] Comment on above: Performed By: #### I NFLUAB ####[facility] Towxnnydvg[address] [place], [place] [address]Dr. Garima Pulliam PROF CHEM 8 (BAS METB)on Anion gap [Moles/Vol] 11.1 mmol/L Normal [facility] Comment on above: Performed By: #### B SQUIRREL MAN, BMP, CMADM ####[facility] Eiyhxfsiqy[address] [place], [place] [address]Dr. Garima Pulliam Calcium [Mass/Vol] 8.5 mg/dL Normal 8.5-10.1 [facility] Comment on above: Performed By: #### B SQUIRREL MAN, MARVIN, CMADM ####[facility] Rpgjbviqzp14[address] [place] [id number]. Garima Pulliam Chloride [Moles/Vol] 106 mmol/L Normal 98-107 [facility] Comment on above: Performed By: #### B SQUIRREL MAN, BMP, CMADM ####[facility] Zmxmtliiqk[address] [place] [address]Dr. Garima Pulliam CO2 [Moles/Vol] 27.4 mmol/L Normal 21.0-32.0 [facility] Comment on above: Performed By: #### B SQUIRREL MAN, MARVIN, CMADM ####[facility] Qkrxblabxi[address] [place] [address]Dr. Garima Pulliam Creatinine [Mass/Vol] 0.65 mg/dL Critically low 0.70-1.30 [facility] Comment on above: Performed By: #### B SQUIRREL MAN, MARVIN, CMADM ####[facility] [address]uz[address] [place] [address]Dr. Garima Pulliam EGFR-AF KYRGYZ >60 Normal >=60 [facility] Comment on above: Performed By: #### B SQUIRREL MAN, BMP, CMADM ####[facility] [address]tb[address]omsx[address] [place] [address]Dr. Garima Pulliam EGFR-NON AF KYRGYZ >60 Normal >=60 [facility] Comment on above: Performed By: #### B SQUIRREL MAN, BMP, CMADM ####[facility] Enquqfnttz[address] [place] [address]Dr. Garima Pulliam Glucose [Mass/Vol] 140 mg/dL Critically high 74-106 [facility] Comment on above: Performed By: #### B SQUIRREL MAN, BMP, CMADM ####[facility] [address]zijjstuyo[address] [place] [address]Dr. Garima Pulliam Potassium [Moles/Vol] 3.5 mmol/L Normal 3.5-5.1 [facility] Comment on above: Performed By: #### B SQUIRREL MAN, BMP, CMADM ####[facility] [address] [place] [address]Dr. Garima Pulliam Sodium [Moles/Vol] 141 mmol/L Normal 136-145 [facility] Comment on above: Performed By: #### B SQUIRREL MAN, BMP, CMADM ####[facility] [address] [place] [address]Dr. Garima Pulliam Urea nitrogen [Mass/Vol] 8.0 mg/dL Normal 7.0-18.0 [facility] Comment on above: Performed By: #### B SQUIRREL MAN, BMP, CMADM ####[facility] [address] [place] [address]Dr. Garima Pulliam Urea nitrogen/Creatinine [Mass ratio] 12.3 mg/mg Normal [facility] Comment on above: Performed By: #### B SQUIRREL MAN, BMP, CMADM ####[facility] Lxsirlfkfj[address] [place], [place] [address]Dr. Garima Pulliam CARDIAC NASH ADMITon 023 CK [Catalytic activity/Vol] 165 U/L Normal 39-308 [facility] Comment on above: Performed By: #### B DAVID, CMADM ####[facility] Qwlnffsxku[address] [place], [place] [address]Dr. Garima Pulliam CK.MB [Mass/Vol] 6.48 ng/mL Critically high <=3.60 [facility] Comment on above: Performed By: #### B MP, CMADM ####[facility] Emtavofucq[address] [place], [place] [address]Dr. Garima Pulliam HSTROP 11.7 pg/mL Normal 4.0-76.1 [facility] Comment on above: Result Comment: CUT- OFF POINTS HAVE BEEN ESTABLISHED BASED ON THE FOURTH UNIVERSAL DEFINITIONS OF MYOCARDIALINFARCTION. THE UPPER REFERENCE LIMIT (URL) OF TROPONIN, DEFINED THE 99TH PERCENTILE OFcTnI DISTRIBUTION IN A REFERENCE POPULATION, HAS BEEN CONFIRMED THE DECISION THRESHOLDFOR VA DIAGNOSIS. Performed By: #### B MP, CMADM ####[facility] Atmozpxj[address] [place], [place] [address]Dr. Garima Pulliam DORIS 83 ng/mL Normal 16-96 [facility] Comment on above: Performed By: #### B MP, CMADM ####[facility] [address] [place] [address]Dr. Garima Pulliam CBC AUTO DIFFon 12-10-2022 BASO # 0.0 103/ul Normal 0.0-0.1 [facility] Comment on above: Performed By: #### C BC ####[facility] Xnkaovighc[address] [place], [place] [address]Dr. Garima Heraclio Basophils/100 WBC (Bld) 0.3 % Normal 0.2-2.0 [facility] Comment on above: Performed By: #### C BC ####[facility] Hbleaxnohs[address] [place], [place] [address]Dr. Garima Pulliam EO # 0.1 103/ul Normal 0.0-0.7 [facility] Comment on above: Performed By: #### C BC ####[facility] Gpezhgykzc[address] [place], [place] [address]Dr. Garima Pulliam Eosinophils/100 WBC (Bld) 0.4 % Critically low 0.9-7.0 [facility] Comment on above: Performed By: #### C BC ####[facility] Ubjeiuuibr[address] [place], [place] [address]Dr. Garima Pulliam Erythrocyte distribution width (RBC) [Ratio] 13.2 % Normal 11.0-15.0 [facility] Comment on above: Performed By: #### C BC ####[facility] Cakdmgavxu[address] [place], [place] [address]Dr. Garima Pulliam Hematocrit (Bld) [Volume fraction] 42.4 % Normal 42.0-54.0 [facility] Comment on above: Performed By: #### C BC ####[facility] Qeutsdssex[address] [place], [place] [address]Dr. Garima Pulliam Hemoglobin (Bld) [Mass/Vol] 14.4 g/dL Normal 14.0-18.0 [facility] Comment on above: Performed By: #### C BC ####[facility] [address] [place] [id number]. Garima Heraclio IG # 0.05 10e3/ul Critically high 0.00-0.03 [facility] Comment on above: Performed By: #### C BC ####[facility] [address]abe[address] [place] [address]Dr. Garima Heraclio IG % 0.4 % Normal 0.0-0.5 [facility] Comment on above: Performed By: #### C BC ####[facility] Nagapfkqzr[address] [place], [place] [address]Dr. Garima Pulliam LYMPH # 0.8 103/ul Critically low 1.2-3.8 [facility] Comment on above: Performed By: #### C BC ####[facility] Bspvqvsonr[address] [place], [place] [address]Dr. Chapisrenu Pulliam Lymphocytes/100 WBC (Bld) 6.5 % Critically low 20.5-60.0 [facility] Comment on above: Performed By: #### C BC ####[facility] Vzjbzhdzzv[address] [place], [place] [address]Dr. Chapisrenu Pulliam MANUAL DIFF REQ NO Normal [facility] Comment on above: Performed By: #### C BC ####[facility] Ccqthqebbo[address] [place], [place] [address]DrAdalberto Garima Pulliam MCH (RBC) [Entitic mass] 30.5 pg Normal 25.9-34.0 [facility] Comment on above: Performed By: #### C BC ####[facility] Hbkxmjnsrh[address] [place], [place] [address]DrAdalberto Garima Heraclio MCHC (RBC) [Mass/Vol] 34.0 g/dL Normal 29.9-35.2 [facility] Comment on above: Performed By: #### C BC ####[facility] Ajmvlcodkf87[address] [place], [place] [address]DrAdalberto Garima Heraclio MCV (RBC) [Entitic vol] 89.8 fL Normal 80.0-94.0 [facility] Comment on above: Performed By: #### C BC ####[facility] Dgvqhujvod[address] [place], [place] [address]Dr. Garima Pluliam MONO # 0.2 103/ul Critically low 0.3-0.8 [facility] Comment on above: Performed By: #### C BC ####[facility] [address] [place] [id number]. Garima Pulliam Monocytes/100 WBC (Bld) 2.0 % Normal 1.7-12.0 [facility] Comment on above: Performed By: #### C BC ####[facility] [address] [place] [address]Dr. Chapisrenu eHraclio NEUT # 10.5 103/ul Critically high 1.4-6.5 [facility] Comment on above: Performed By: #### C BC ####[facility] [address] [place] [address]Dr. Garima Pulliam Neutrophils/100 WBC (Bld) 90.4 % Critically high 43.0-75.0 [facility] Comment on above: Performed By: #### C BC ####[facility] [address]wsphhs[address] [place] [address]Dr. Garima Pulliam Platelet mean volume (Bld) [Entitic vol] 9.4 fL Critically low 9.5-13.5 [facility] Comment on above: Performed By: #### C BC ####[facility] [address] [place] [address]Dr. Garima Pulliam PLT 198 103/ul Normal 150-450 [facility] Comment on above: Performed By: #### C BC ####[facility] X[address]wi[address] [place] [address]Dr. Garima Pulliam RBC 4.72 106/ul Normal 4.70-6.10 [facility] Comment on above: Performed By: #### C BC ####[facility] [address] [place] [id number]. Garima Pulliam WBC 11.6 103/ul Critically high 4.0-11.0 [facility] Comment on above: Performed By: #### C BC ####[facility] [address] [place] [address]DrAdalberto Pulliam PROF CHEM 8 (BAS METB)on Anion gap [Moles/Vol] 11.3 mmol/L Normal [facility] Comment on above: Performed By: #### B NANCY HERNANDEZ ####[facility] [address] [place] [address]Dr. Garima Pulliam Calcium [Mass/Vol] 8.9 mg/dL Normal 8.5-10.1 [facility] Comment on above: Performed By: #### B NANCY HERNANDEZ ####[facility] [address]jv[address] [place] [address]Dr. Garima Pulliam Chloride [Moles/Vol] 103 mmol/L Normal 98-107 [facility] Comment on above: Performed By: #### B NANCY HERNANDEZ ####[facility] Vqjmezqcps[address] [place], [place] [address]Dr. Garima Pulliam CO2 [Moles/Vol] 28.2 mmol/L Normal 21.0-32.0 [facility] Comment on above: Performed By: #### NANCY Larkin MP ####[facility] [address]xfuxi[address] [place] [address]Dr. Chapisrenu Pulliam Creatinine [Mass/Vol] 0.60 mg/dL Critically low 0.70-1.30 [facility] Comment on above: Performed By: #### NANCY Larkin MP ####[facility] [address] [place] [address]Dr. Garima Pulliam EGFR-AF KYRGYZ >60 Normal >=60 [facility] Comment on above: Performed By: #### NANCY Larkin MP ####[facility] [address]posgk[address] [place] [address]Dr. Garima Pulliam EGFR-NON AF KYRGYZ >60 Normal >=60 [facility] Comment on above: Performed By: #### NANCY Larkin MP ####[facility] Wqcyspzjtc[address] [place], [place] [address]Dr. Garima Pulliam Glucose [Mass/Vol] 166 mg/dL Critically high 74-106 [facility] Comment on above: Performed By: #### B MP, CMADM ####[facility] [address] [place] [address]Dr. Garima Pulliam Potassium [Moles/Vol] 3.5 mmol/L Normal 3.5-5.1 [facility] Comment on above: Performed By: #### B MP, CMADM ####[facility] [address] [place] [address]Dr. Garima Pulliam Sodium [Moles/Vol] 139 mmol/L Normal 136-145 [facility] Comment on above: Performed By: #### B DAVID, CMADM ####[facility] [address] [place] [address]Dr. Garima Heraclio Urea nitrogen [Mass/Vol] 9.0 mg/dL Normal 7.0-18.0 [facility] Comment on above: Performed By: #### B DAVID, NANCY ####[facility] Yzyjnojmpm[address] [place], [place] [address]Dr. Garima Heraclio Urea nitrogen/Creatinine [Mass ratio] 15.0 mg/mg Normal [facility] Comment on above: Performed By: #### B DAVID, CMAANA ROSA ####[facility] Ldgzuyixpz[address] [place], [place] [address]Dr. Garima Pulliam XR CHEST 1 Von 12-10-2022 XR CHEST 1 V Normal [facility] BNPon 11-27-2022 Natriuretic peptide B (Bld) [Mass/Vol] 95.0 pg/mL Normal <=900.0 [facility] Comment on above: Performed By: #### C MP, HSTROPN, BNP ####[facility] Yinaboqrkx[address] [place], [place] [address]Dr. Garima Heraclio CBC AUTO DIFFon 11-27-2022 BASO # 0.0 103/ul Normal 0.0-0.1 [facility] Comment on above: Performed By: #### C BC ####[facility] Y[address]jwpuwk[address] [place], [place] [address]Dr. Garima Heraclio Basophils/100 WBC (Bld) 0.2 % Normal 0.2-2.0 [facility] Comment on above: Performed By: #### C BC ####[facility] [address] [place] [id number]. Garima Pulliam EO # 0.2 103/ul Normal 0.0-0.7 [facility] Comment on above: Performed By: #### C BC ####[facility] S[address]ok[address] [place] [id number]. Garima Pulliam Eosinophils/100 WBC (Bld) 2.0 % Normal 0.9-7.0 [facility] Comment on above: Performed By: #### C BC ####[facility] Ulwguudvgf[address] [place], [place] [address]Dr. Garima Pulliam Erythrocyte distribution width (RBC) [Ratio] 13.2 % Normal 11.0-15.0 [facility] Comment on above: Performed By: #### C BC ####[facility] Bjjdpvvozo[address] [place], [place] [address]Dr. Garima Pulliam Hematocrit (Bld) [Volume fraction] 42.4 % Normal 42.0-54.0 [facility] Comment on above: Performed By: #### C BC ####[facility] Tpalnhbdte[address] [place], [place] [address]Dr. Garima Pulliam Hemoglobin (Bld) [Mass/Vol] 14.4 g/dL Normal 14.0-18.0 [facility] Comment on above: Performed By: #### C BC ####[facility] Iupreybrva[address] [place], [place] [address]Dr. Garima Pulliam IG # 0.04 10e3/ul Critically high 0.00-0.03 [facility] Comment on above: Performed By: #### C BC ####[facility] Qfohkmyqjl[address] [place], [place] [address]Dr. Garima Pulliam IG % 0.4 % Normal 0.0-0.5 [facility] Comment on above: Performed By: #### C BC ####[facility] Fkrsdljolt[address] [place], [place] [address]Dr. Garima Pulliam LYMPH # 2.2 103/ul Normal 1.2-3.8 [facility] Comment on above: Performed By: #### C BC ####[facility] [address] [place] [id number]. Garima Pulliam Lymphocytes/100 WBC (Bld) 21.5 % Normal 20.5-60.0 [facility] Comment on above: Performed By: #### C BC ####[facility] [address]nbqy[address] [place] [id number]. Garima Heraclio MANUAL DIFF REQ NO Normal [facility] Comment on above: Performed By: #### C BC ####[facility] [address] [place] [id number]. Garima Heraclio MCH (RBC) [Entitic mass] 30.4 pg Normal 25.9-34.0 [facility] Comment on above: Performed By: #### C BC ####[facility] [address]aigo[address] [place] [address]Dr. Garima Heraclio MCHC (RBC) [Mass/Vol] 34.0 g/dL Normal 29.9-35.2 [facility] Comment on above: Performed By: #### C BC ####[facility] W[address]tsya[address] [place] [id number]. Garima Pulliam MCV (RBC) [Entitic vol] 89.6 fL Normal 80.0-94.0 [facility] Comment on above: Performed By: #### C BC ####[facility] K[address]rxkuas[address] [place] [id number]. Garima Pulliam MONO # 0.8 103/ul Normal 0.3-0.8 [facility] Comment on above: Performed By: #### C BC ####[facility] Jnx[address]fr[address] [place] [id number]. Chapisrenu Pulliam Monocytes/100 WBC (Bld) 7.7 % Normal 1.7-12.0 [facility] Comment on above: Performed By: #### C BC ####[facility] L[address]vbicinwg[address] [place], [place] [address]Dr. Garima Pulliam NEUT # 7.0 103/ul Critically high 1.4-6.5 [facility] Comment on above: Performed By: #### C BC ####[facility] [address] [place] [id number]. Garima Pulliam Neutrophils/100 WBC (Bld) 68.2 % Normal 43.0-75.0 [facility] Comment on above: Performed By: #### C BC ####[facility] Gfq[address]yqrwc4[address] [place] [id number]. Chapisrenu Pulliam Platelet mean volume (Bld) [Entitic vol] 8.9 fL Critically low 9.5-13.5 [facility] Comment on above: Performed By: #### C BC ####[facility] [address] [place] [address]Dr. Garima Pulliam PLT 222 103/ul Normal 150-450 [facility] Comment on above: Performed By: #### C BC ####[facility] [address]axmls[address] [place] [address]Dr. Garima Pulliam RBC 4.73 106/ul Normal 4.70-6.10 [facility] Comment on above: Performed By: #### C BC ####[facility] [address]jhxtu[address] [place] [address]Dr. Garima Pulliam WBC 10.3 103/ul Normal 4.0-11.0 [facility] Comment on above: Performed By: #### C BC ####[facility] [address]uxi[address] [place] [address]Dr. Garima Pulliam PROF 14(COMP METB)on 023 Albumin [Mass/Vol] 3.7 g/dL Normal 3.4-5.0 [facility] Comment on above: Performed By: #### C MP, HSTROPN, BNP ####[facility] [address] [place] [address]Dr. Chapisrenu Pulliam Albumin/Globulin [Mass ratio] 1.5 {ratio} Normal [facility] Comment on above: Performed By: #### C MP, HSTROPN, BNP ####[facility] [address]xju[address] [place] [address]Dr. Garima Pulliam ALP [Catalytic activity/Vol] 79 U/L Normal 46-116 [facility] Comment on above: Performed By: #### C MP, HSTROPN, BNP ####[facility] [address]cexvjjcrf[address] [place] [address]Dr. Garima Pulliam ALT [Catalytic activity/Vol] 32 U/L Normal 16-63 [facility] Comment on above: Performed By: #### C MP, HSTROPN, BNP ####[facility] Hzqbmpqcuw9[address] [place] [address]Dr. Garima Pulliam Anion gap [Moles/Vol] 9.5 mmol/L Normal [facility] Comment on above: Performed By: #### C MP, HSTROPN, BNP ####[facility] Pnkxjlfdau[address] [place], [place] [address]Dr. Garima Pulliam AST [Catalytic activity/Vol] 25 U/L Normal 15-37 [facility] Comment on above: Performed By: #### C MP, HSTROPN, BNP ####[facility] Uotnddlsdz[address] [place], [place] [address]Dr. Chapislan Pulliam Bilirubin [Mass/Vol] 0.4 mg/dL Normal 0.2-1.0 [facility] Comment on above: Performed By: #### C MP, HSTROPN, BNP ####[facility] Suqnbplwaq[address] [place], [place] [address]Dr. Garima Pulliam Calcium [Mass/Vol] 8.9 mg/dL Normal 8.5-10.1 [facility] Comment on above: Performed By: #### C MP, HSTROPN, BNP ####[facility] Sequpztoff[address] [place], [place] [address]Dr. Chapislan Pulliam Chloride [Moles/Vol] 103 mmol/L Normal 98-107 [facility] Comment on above: Performed By: #### C MP, HSTROPN, BNP ####[facility] Jzbxzdenqp[address] [place], [place] [address]Dr. Yilan Pulliam CO2 [Moles/Vol] 28.6 mmol/L Normal 21.0-32.0 [facility] Comment on above: Performed By: #### C MP, HSTROPN, BNP ####[facility] [address] [place] [address]Dr. Garima Pulliam Creatinine [Mass/Vol] 0.72 mg/dL Normal 0.70-1.30 [facility] Comment on above: Performed By: #### C MP, HSTROPN, BNP ####[facility] [address]cfa[address] [place] [address]Dr. Garima Pulliam EGFR-AF KYRGYZ >60 Normal >=60 [facility] Comment on above: Performed By: #### C MP, HSTROPN, BNP ####[facility] [address]utiah[address] [place] [address]Dr. Garima Pulliam EGFR-NON AF KYRGYZ >60 Normal >=60 [facility] Comment on above: Performed By: #### C MP, HSTROPN, BNP ####[facility] [address]omfdog[address] [place] [address]Dr. Garima Pulliam Globulin (S) [Mass/Vol] 2.5 g/dL Normal [facility] Comment on above: Performed By: #### C MP, HSTROPN, BNP ####[facility] Rzlxgdctsw[address] [place], [place] [address]Dr. Garima Pulliam Glucose [Mass/Vol] 114 mg/dL Critically high 74-106 [facility] Comment on above: Performed By: #### C MP, HSTROPN, BNP ####[facility] Xvzphfyqvw[address] [place], [place] [address]Dr. Garima Pulliam Potassium [Moles/Vol] 4.1 mmol/L Normal 3.5-5.1 [facility] Comment on above: Performed By: #### C MP, HSTROPN, BNP ####[facility] Xuekelqncj[address] [place], [place] [address]Dr. Garima Pulliam Protein [Mass/Vol] 6.2 g/dL Critically low 6.4-8.2 [facility] Comment on above: Performed By: #### C MP, HSTROPN, BNP ####[facility] Oqgwmgekvc[address] [place], [place] [address]Dr. Yilan Pulliam Sodium [Moles/Vol] 137 mmol/L Normal 136-145 [facility] Comment on above: Performed By: #### C MP, HSTROPN, BNP ####[facility] [address]fi[address]kb[address] [place] [address]Dr. Garima Pulliam Urea nitrogen [Mass/Vol] 13.0 mg/dL Normal 7.0-18.0 [facility] Comment on above: Performed By: #### C MP, HSTROPN, BNP ####[facility] [address]wf[address] [place] [address]Dr. Garima Pulliam Urea nitrogen/Creatinine [Mass ratio] 18.1 mg/mg Normal [facility] Comment on above: Performed By: #### C MP, HSTROPN, BNP ####[facility] Hweyzfmwne[address] [place], [place] [address]Dr. Garima Pulliam TROPONIN, HIGH SENSITIVITYon 11-27-2022 HSTROP 11.8 pg/mL Normal 4.0-76.1 [facility] Comment on above: Result Comment: CUT- OFF POINTS HAVE BEEN ESTABLISHED BASED ON THE FOURTH UNIVERSAL DEFINITIONS OF MYOCARDIALINFARCTION. THE UPPER REFERENCE LIMIT (URL) OF TROPONIN, DEFINED THE 99TH PERCENTILE OFcTnI DISTRIBUTION IN A REFERENCE POPULATION, HAS BEEN CONFIRMED THE DECISION THRESHOLDFOR [facility] DIAGNOSIS. Performed By: #### C MP, HSTROPN, BNP ####[facility] Ozrhhqptnn[address] [place], [place] [address]Dr. Garima Pulliam XR CHEST 1 Von 11-27-2022 XR CHEST 1 V Normal [facility] BNPon 11-20-2022 Natriuretic peptide B (Bld) [Mass/Vol] 73.0 pg/mL Normal <=900.0 [facility] Comment on above: Performed By: #### B MP, HSTROPN, BNP ####[facility] Gpcgjtvmun[address] [place], [place] [address]Dr. Garima Pulliam CBC AUTO DIFFon 11-20-2022 BASO # 0.0 103/ul Normal 0.0-0.1 [facility] Comment on above: Performed By: #### C BC ####[facility] [address] [place] [id number]. Garima Pulliam Basophils/100 WBC (Bld) 0.3 % Normal 0.2-2.0 [facility] Comment on above: Performed By: #### C BC ####[facility] Ztcudhgxqh060[address] [place] [id number]. Garima Pulliam EO # 0.2 103/ul Normal 0.0-0.7 [facility] Comment on above: Performed By: #### C BC ####[facility] Zx[address]wlgc[address] [place] [address]Dr. Garima Pulliam Eosinophils/100 WBC (Bld) 2.1 % Normal 0.9-7.0 [facility] Comment on above: Performed By: #### C BC ####[facility] Brglcyrics[address] [place], [place] [address]Dr. Garima Pulliam Erythrocyte distribution width (RBC) [Ratio] 13.2 % Normal 11.0-15.0 [facility] Comment on above: Performed By: #### C BC ####[facility] Thffuwqxkv[address] [place], [place] [address]Dr. Garima Pulliam Hematocrit (Bld) [Volume fraction] 43.4 % Normal 42.0-54.0 [facility] Comment on above: Performed By: #### C BC ####[facility] [address] [place], [place] [id number]. Garima Pulliam Hemoglobin (Bld) [Mass/Vol] 14.6 g/dL Normal 14.0-18.0 [facility] Comment on above: Performed By: #### C BC ####[facility] [address]bx[address]zzjvsm[address] [place] [id number]. Garima Pulliam IG # 0.02 10e3/ul Normal 0.00-0.03 [facility] Comment on above: Performed By: #### C BC ####[facility] [address]rorfdbr[address] [place] [address]Dr. Garima Pulliam IG % 0.2 % Normal 0.0-0.5 [facility] Comment on above: Performed By: #### C BC ####[facility] [address]ifbo[address] [place] [id number]. Garima Heraclio LYMPH # 2.1 103/ul Normal 1.2-3.8 [facility] Comment on above: Performed By: #### C BC ####[facility] Mmajdarygi8[address] [place] [id number]. Garima Heraclio Lymphocytes/100 WBC (Bld) 19.2 % Critically low 20.5-60.0 [facility] Comment on above: Performed By: #### C BC ####[facility] [address]scxyhpmqb6[address] [place] [id number]. Chapisrenu Pulliam MANUAL DIFF REQ NO Normal [facility] Comment on above: Performed By: #### C BC ####[facility] Wvjlotjqiu27[address] [place] [id number]. Garima Heraclio MCH (RBC) [Entitic mass] 30.4 pg Normal 25.9-34.0 [facility] Comment on above: Performed By: #### C BC ####[facility] [address]ary[address] [place] [address]Dr. Garima Pulliam MCHC (RBC) [Mass/Vol] 33.6 g/dL Normal 29.9-35.2 [facility] Comment on above: Performed By: #### C BC ####[facility] [address]zckmrswwa40[address] [place] [id number]. Garima Heraclio MCV (RBC) [Entitic vol] 90.4 fL Normal 80.0-94.0 [facility] Comment on above: Performed By: #### C BC ####[facility] Vmcdynabvr72[address] [place] [id number]. Garima Heraclio MONO # 0.6 103/ul Normal 0.3-0.8 [facility] Comment on above: Performed By: #### C BC ####[facility] Y[address]zm[address]yuze[address] [place] [address]Dr. Garima Heraclio Monocytes/100 WBC (Bld) 5.8 % Normal 1.7-12.0 [facility] Comment on above: Performed By: #### C BC ####[facility] Wveoxadmlb8220 [place], [place] [address]Dy. Garima Pulliam NEUT # 7.8 103/ul Critically high 1.4-6.5 [facility] Comment on above: Performed By: #### C BC ####[facility] [address]mswduy14[address] [place] [id number]. Garima Pulliam Neutrophils/100 WBC (Bld) 72.4 % Normal 43.0-75.0 [facility] Comment on above: Performed By: #### C BC ####[facility] Qezmqsahmm5206 [place] [id number]. Garima Pulliam Platelet mean volume (Bld) [Entitic vol] 8.7 fL Critically low 9.5-13.5 [facility] Comment on above: Performed By: #### C BC ####[facility] Vpb[address]kew[address] [place] [id number]. Garima Pulliam PLT 184 103/ul Normal 150-450 [facility] Comment on above: Performed By: #### C BC ####[facility] [address] [place], [place] [address]Fx. Garima Pulliam RBC 4.80 106/ul Normal 4.70-6.10 [facility] Comment on above: Performed By: #### C BC ####[facility] [address] [place] [id number]. Garima Pulliam WBC 10.8 103/ul Normal 4.0-11.0 [facility] Comment on above: Performed By: #### C BC ####[facility] [address]xx[address] [place] [id number]. Garima Pulliam [facility]on [facility]24 SARS-CoV-2 (COVID-19) RNA MARIE+probe Ql (Unsp spec) Not detected Normal NOT DETECTED [facility] Comment on above: [...] for this test is supported by the [place] [place] of Health and Human Service's declaration that [...] be used). Performed By: #### C VDTBH ####[facility] Ezxmzz[address] [place], [place] [address]Dr. Garima Pulliam INFLUENZA A AND B AGon 11-20 INFLUCITY OF HOPE, [place] SEE BELOW Normal [facility] Comment on above: Result Comment: Nega tive for Flu A protein angiten. Infection due to Flu A cannot be ruled out. Flu A angiten in the sample may be below the detection limit of the test. Performed By: #### I NFLUAB ####[facility] [address] [place], [place] [address]Dr. Garima Pulliam INFLUBNEGH SEE BELOW Normal [facility] Comment on above: Result Comment: Nega tive for Flu B protein antigen. Infection due to Flu B cannot be ruled out. Flu B antigen in the sample may be below the detection limit of the test. Performed By: #### I NFLUAB ####[facility] [address] [place], [place] [address]Dr. Garima Pulliam INFLUENZA A AG Negative Normal NEGATIVE SEE COMMENT [facility] Comment on above: Performed By: #### I NFLUAB ####[facility] Tqdqhbub[address] [place], [place] [address]Dr. Garima [facility] INFLUENZA B AG Negative Normal NEGATIVE SEE COMMENT [facility] Comment on above: Performed By: #### I NFLUAB ####[facility] Tyvjo[address] [place], [place] [address]Dr. Garima Pulliam PROF CHEM 8 (BAS METB)on Anion gap [Moles/Vol] 8.2 mmol/L Normal [facility] Comment on above: Performed By: #### B MP, HSTROPN, BNP ####[facility] [address] [place] [address]Dr. Garima Pulliam Calcium [Mass/Vol] 8.7 mg/dL Normal 8.5-10.1 [facility] Comment on above: Performed By: #### B MP, HSTROPN, BNP ####[facility] [address] [place] [address]Dr. Garima Pulliam Chloride [Moles/Vol] 103 mmol/L Normal 98-107 [facility] Comment on above: Performed By: #### B MP, HSTROPN, BNP ####[facility] [address]ki[address] [place], [place] [address]Dr. Garima Pulliam CO2 [Moles/Vol] 29.4 mmol/L Normal 21.0-32.0 [facility] Comment on above: Performed By: #### B MP, HSTROPN, BNP ####[facility] [address]vbu[address]ldv[address] [place], [place] [address]Dr. Garima Pulliam Creatinine [Mass/Vol] 0.69 mg/dL Critically low 0.70-1.30 [facility] Comment on above: Performed By: #### B MP, HSTROPN, BNP ####[facility] [address] [place] [address]Dr. Garima Pulliam EGFR-AF KYRGYZ >60 Normal >=60 [facility] Comment on above: Performed By: #### B MP, HSTROPN, BNP ####[facility] [address]pdxaos[address] [place], [place] [address]Dr. Garima Pulliam EGFR-NON AF KYRGYZ >60 Normal >=60 [facility] Comment on above: Performed By: #### B MP, HSTROPN, BNP ####[facility] [address] [place] [address]Dr. Garima Pulliam Glucose [Mass/Vol] 209 mg/dL Critically high 74-106 [facility] Comment on above: Performed By: #### B MP, HSTROPN, BNP ####[facility] [address] [place] [address]Dr. Garima Pulliam Potassium [Moles/Vol] 3.6 mmol/L Normal 3.5-5.1 [facility] Comment on above: Performed By: #### B MP, HSTROPN, BNP ####[facility] [address] [place] [address]Dr. Garima Pulliam Sodium [Moles/Vol] 137 mmol/L Normal 136-145 [facility] Comment on above: Performed By: #### B MP, HSTROPN, BNP ####[facility] [address]sq[address] [place] [address]Dr. Garima Pulliam Urea nitrogen [Mass/Vol] 11.0 mg/dL Normal 7.0-18.0 [facility] Comment on above: Performed By: #### B MP, HSTROPN, BNP ####[facility] [address] [place] [address]Dr. Garima Pulliam Urea nitrogen/Creatinine [Mass ratio] 15.9 mg/mg Normal [facility] Comment on above: Performed By: #### B MP, HSTROPN, BNP ####[facility] [address] [place] [address]Dr. Garima Pulliam TROPONIN, HIGH SENSITIVITYon 11-20-2022 HSTROP 8.7 pg/mL Normal 4.0-76.1 [facility] Comment on above: Result Comment: CUT- OFF POINTS HAVE BEEN ESTABLISHED BASED ON THE FOURTH UNIVERSAL DEFINITIONS OF MYOCARDIALINFARCTION. THE UPPER REFERENCE LIMIT (URL) OF TROPONIN, DEFINED THE 99TH PERCENTILE OFcTnI DISTRIBUTION IN A REFERENCE POPULATION, HAS BEEN CONFIRMED THE DECISION THRESHOLDFOR VA DIAGNOSIS. Performed By: #### B MP, HSTROPN, BNP ####[facility] [address] [place] [address]Dr. Garima Pulliam XR CHEST 1 Von 11-20-2022 XR CHEST 1 V Normal [facility] XR CHEST 1 Von 10-02-2022 XR CHEST 1 V Normal [facility] BNPon 09-29-2022 Natriuretic peptide B (Bld) [Mass/Vol] 107.0 pg/mL Normal <=900.0 [facility] Comment on above: Performed By: #### C MP, BNP, CMADM ####[facility] [address] [place] [address]Dr. Garima Pulliam CARDIAC NASH ADMITon 022 CK [Catalytic activity/Vol] 190 U/L Normal 39-308 [facility] Comment on above: Performed By: #### C MP, BNP, CMADM ####[facility] [address] [place] [address]Dr. Garima Heraclio CK.MB [Mass/Vol] 11.11 ng/mL Critically high <=3.60 [facility] [place] [facility] Comment on above: Performed By: #### C MP, BNP, CMADM ####[facility] [address] [place] [address]Dr. Garima Pulliam HSTROP 11.8 pg/mL Normal 4.0-76.1 [facility] Comment on above: Result Comment: CUT- OFF POINTS HAVE BEEN ESTABLISHED BASED ON THE FOURTH UNIVERSAL DEFINITIONS OF MYOCARDIALINFARCTION. THE UPPER REFERENCE LIMIT (URL) OF TROPONIN, DEFINED THE 99TH PERCENTILE OFcTnI DISTRIBUTION IN A REFERENCE POPULATION, HAS BEEN CONFIRMED THE DECISION THRESHOLDFOR VA DIAGNOSIS. Performed By: #### C MP, BNP, CMADM ####[facility] [address] [place] [address]Dr. Garima Pulliam DORIS 133 ng/mL Critically high 16-96 [facility] Comment on above: Performed By: #### C MP, BNP, CMADM ####[facility] [address] [place] [address]Dr. Garima Heraclio CBC AUTO DIFFon 09-29-2022 BASO # 0.0 103/ul Normal 0.0-0.1 [facility] Comment on above: Performed By: #### C BC ####[facility] [address] [place] [address]Dr. Garima Heraclio Basophils/100 WBC (Bld) 0.2 % Normal 0.2-2.0 [facility] Comment on above: Performed By: #### C BC ####[facility] [address] [place] [id number]. Garima Pulliam EO # 0.1 103/ul Normal 0.0-0.7 [facility] Comment on above: Performed By: #### C BC ####[facility] A[address] [place] [id number]. Garima Pulliam Eosinophils/100 WBC (Bld) 1.4 % Normal 0.9-7.0 [facility] Comment on above: Performed By: #### C BC ####[facility] Yhos[address]ocgs[address] [place], [place] [address]Dr. Garima Pulliam Erythrocyte distribution width (RBC) [Ratio] 13.7 % Normal 11.0-15.0 [facility] Comment on above: Performed By: #### C BC ####[facility] L[address]abeoi[address] [place], [place] [address]Dr. Garima Pulliam Hematocrit (Bld) [Volume fraction] 45.4 % Normal 42.0-54.0 [facility] Comment on above: Performed By: #### C BC ####[facility] Aux[address]myqvze[address] [place], [place] [address]Dr. Garima Pulliam Hemoglobin (Bld) [Mass/Vol] 14.8 g/dL Normal 14.0-18.0 [facility] Comment on above: Performed By: #### C BC ####[facility] [address]ny[address] [place], [place] [address]Dr. Garima Pulliam IG # 0.04 10e3/ul Critically high 0.00-0.03 [facility] Comment on above: Performed By: #### C BC ####[facility] [address]xry[address]bxakd[address] [place], [place] [address]Dr. Garima Pulliam IG % 0.5 % Normal 0.0-0.5 [facility] Comment on above: Performed By: #### C BC ####[facility] Axtmivnijr[address] [place], [place] [address]Dr. Garima Pulliam LYMPH # 1.1 103/ul Critically low 1.2-3.8 [facility] Comment on above: Performed By: #### C BC ####[facility] Qxit[address]fr[address] [place] [id number]. Garima Pulliam Lymphocytes/100 WBC (Bld) 12.7 % Critically low 20.5-60.0 [facility] Comment on above: Performed By: #### C BC ####[facility] Bs[address]neawmj[address] [place] [id number]. Chapisrenu Pulliam MANUAL DIFF REQ NO Normal [facility] Comment on above: Performed By: #### C BC ####[facility] [address] [place], [place] [id number]. Garima Heraclio MCH (RBC) [Entitic mass] 30.0 pg Normal 25.9-34.0 [facility] Comment on above: Performed By: #### C BC ####[facility] Ofch[address] [place], [place] [address]Dr. Garima Heraclio MCHC (RBC) [Mass/Vol] 32.6 g/dL Normal 29.9-35.2 [facility] Comment on above: Performed By: #### C BC ####[facility] [address] [place], [place] [id number]. Garima Heraclio MCV (RBC) [Entitic vol] 91.9 fL Normal 80.0-94.0 [facility] Comment on above: Performed By: #### C BC ####[facility] [address]tsq[address] [place], [place] [address]Dr. Garima Pulliam MONO # 0.4 103/ul Normal 0.3-0.8 [facility] Comment on above: Performed By: #### C BC ####[facility] [address] [place], [place] [address]Dr. Chapisrenu Pulliam Monocytes/100 WBC (Bld) 4.8 % Normal 1.7-12.0 [facility] Comment on above: Performed By: #### C BC ####[facility] [address]loj[address] [place], [place] [address]Dr. Garima Pulliam NEUT # 7.1 103/ul Critically high 1.4-6.5 [facility] Comment on above: Performed By: #### C BC ####[facility] [address] [place], [place] [address]Jd. Garima Pulliam Neutrophils/100 WBC (Bld) 80.4 % Critically high 43.0-75.0 [facility] Comment on above: Performed By: #### C BC ####[facility] [address]us[address] [place] [id number]. Garima Pulliam Platelet mean volume (Bld) [Entitic vol] 9.1 fL Critically low 9.5-13.5 [facility] Comment on above: Performed By: #### C BC ####[facility] [address]bs[address] [place] [id number]. Garima Pulliam PLT 200 103/ul Normal 150-450 [facility] Comment on above: Performed By: #### C BC ####[facility] [address] [place] [id number]. Garima Pulliam RBC 4.94 106/ul Normal 4.70-6.10 [facility] Comment on above: Performed By: #### C BC ####[facility] [address]bvfr[address] [place] [id number]. Garima Pulliam WBC 8.9 103/ul Normal 4.0-11.0 [facility] Comment on above: Performed By: #### C BC ####[facility] [address] [place] [id number]. Garima Pulliam Covid-19 PCR (CVDTB)on SARS-CoV-2 (COVID-19) RNA MARIE+probe Ql (Unsp spec) Not detected Normal NOT DETECTED [facility] Comment on above: [...] for this test is supported by the [place] of Health and Human Service's declaration that [...] be used). Performed By: #### C VDTBH ####[facility] [address] [place] [address]Dr. Garima Pulliam LACTATE/LACTIC ACIDon 2021 Lactate [Moles/Vol] 1.7 mmol/L Normal 0.4-1.9 [facility] Comment on above: Performed By: #### L ACT ####[facility] Ijxf[address]hub[address] [place], [place] [address]Dr. Garima Pulliam PROF 14(COMP METB)on 022 Albumin [Mass/Vol] 3.8 g/dL Normal 3.4-5.0 [facility] Comment on above: Performed By: #### C MP, BNP, CMADM ####[facility] [address] [place], [place] [address]Dr. Garima Pulliam Albumin/Globulin [Mass ratio] 1.5 {ratio} Normal [facility] Comment on above: Performed By: #### C MP, BNP, CMADM ####[facility] [address]ves[address] [place] [address]Dr. Garima Pulliam ALP [Catalytic activity/Vol] 62 U/L Normal 46-116 [facility] Comment on above: Performed By: #### C MP, BNP, CMADM ####[facility] X[address]ukfr[address] [place] [address]Dr. Garima Pulliam ALT [Catalytic activity/Vol] 37 U/L Normal 16-63 [facility] Comment on above: Performed By: #### C MP, BNP, CMADM ####[facility] [address]fe[address] [place] [address]Dr. Garima Pulliam Anion gap [Moles/Vol] 8.0 mmol/L Normal [facility] Comment on above: Performed By: #### C MP, BNP, CMADM ####[facility] [address]tuwcq[address] [place] [address]Dr. Garima Pulliam AST [Catalytic activity/Vol] 20 U/L Normal 15-37 [facility] Comment on above: Performed By: #### C MP, BNP, CMADM ####[facility] Wxxldpujnl[address] [place] [address]Dr. Garima Pulliam Bilirubin [Mass/Vol] 0.6 mg/dL Normal 0.2-1.0 [facility] Comment on above: Performed By: #### C MP, BNP, CMADM ####[facility] [address]qzkwxnsub[address] [place] [address]Dr. Garima Pulliam Calcium [Mass/Vol] 9.1 mg/dL Normal 8.5-10.1 [facility] Comment on above: Performed By: #### C MP, BNP, CMADM ####[facility] [address]voa[address] [place], [place] [address]Dr. Garima Pulliam Chloride [Moles/Vol] 103 mmol/L Normal 98-107 [facility] Comment on above: Performed By: #### C MP, BNP, CMADM ####[facility] Accrsbkxrc[address] [place], [place] [address]Dr. Garima Pulliam CO2 [Moles/Vol] 31.8 mmol/L Normal 21.0-32.0 [facility] Comment on above: Performed By: #### C MP, BNP, CMADM ####[facility] Im[address]ukgueux[address] [place], [place] [address]Dr. Garima Pulliam Creatinine [Mass/Vol] 0.63 mg/dL Critically low 0.70-1.30 [facility] Comment on above: Performed By: #### C MP, BNP, CMADM ####[facility] [address]smlpuxy[address] [place], [place] [address]Dr. Garima Pulliam EGFR-AF KYRGYZ >60 Normal >=60 [facility] Comment on above: Performed By: #### C MP, BNP, CMADM ####[facility] Gzb[address] [place], [place] [address]Dr. Garima Pulliam EGFR-NON AF KYRGYZ >60 Normal >=60 [facility] Comment on above: Performed By: #### C MP, BNP, CMADM ####[facility] [address]cy[address]rca[address] [place] [address]Dr. Garima Pulliam Globulin (S) [Mass/Vol] 2.6 g/dL Normal [facility] Comment on above: Performed By: #### C MP, BNP, CMADM ####[facility] Cxrh[address]zise[address] [place] [address]Dr. Garima Pulliam Glucose [Mass/Vol] 103 mg/dL Normal 74-106 [facility] Comment on above: Performed By: #### C MP, BNP, CMADM ####[facility] Qlmzhdoovt350[address] [place] [address]Dr. Garima Pulliam Potassium [Moles/Vol] 3.8 mmol/L Normal 3.5-5.1 [facility] Comment on above: Performed By: #### C MP, BNP, CMADM ####[facility] T[address]mb[address]uu[address] [place] [address]Dr. Garima Pulliam Protein [Mass/Vol] 6.4 g/dL Normal 6.4-8.2 [facility] Comment on above: Performed By: #### C MP, BNP, CMADM ####[facility] Se[address]abmrpq[address] [place] [address]Dr. Garima Pluliam Sodium [Moles/Vol] 139 mmol/L Normal 136-145 [facility] Comment on above: Performed By: #### C MP, BNP, CMADM ####[facility] Q[address]zcbvjfea[address] [place] [address]Dr. Garima Pulliam Urea nitrogen [Mass/Vol] 7.0 mg/dL Normal 7.0-18.0 [facility] Comment on above: Performed By: #### C MP, BNP, CMADM ####[facility] [address]qiqtvbi[address] [place] [address]Dr. Garima Pulliam Urea nitrogen/Creatinine [Mass ratio] 11.1 mg/mg Normal [facility] Comment on above: Performed By: #### C MP, BNP, CMADM ####[facility] [address]bevjuq[address] [place] [address]Dr. Garima Pulliam PROTIMEon 09-29-2022 INR Coag (PPP) [Relative time] 1.14 {INR} Normal [facility] Comment on above: Performed By: #### P T, PTT ####[facility] [address]xnnps[address] [place], [place] [address]Dr. Garima Pulliam INR GUIDELINES SEE BELOW Normal [facility] Comment on above: Result Comment: WESLEY RED INR: 2.0 - 3.0 CONDITIONS NOT LISTED BELOW 2.5 - 3.5 FOR PROSTHETIC HEART VALVE REPLACEMENT 2.5 - 3.5 RECURRENT THROMBOSIS Performed By: #### P T, PTT ####[facility] [address]cukssbi[address] [place], [place] [address]Dr. Garima Pulliam PT Coag (PPP) [Time] 12.2 s Critically high 9.0-11.6 [facility] Comment on above: Performed By: #### P T, PTT ####[facility] [address]flw[address] [place], [place] [address]Dr. Garima Pulliam PTTon 09-29-2022 aPTT Coag (Bld) [Time] 29.3 s Normal 22.3-36.2 [facility] Comment on above: Performed By: #### P T, PTT ####[facility] Kfxcslnsel[address] [place], [place] [address]Dr. Garima Pulliam XR CHEST 1 Von 09-29-2022 XR CHEST 1 V Normal [facility] CBC AUTO DIFFon 09-26-2022 BASO # 0.0 103/ul Normal 0.0-0.1 [facility] Comment on above: Performed By: #### C BC ####[facility] Msrjbaqfwt[address] [place], [place] [address]Dr. Garima Pulliam Basophils/100 WBC (Bld) 0.2 % Normal 0.2-2.0 [facility] Comment on above: Performed By: #### C BC ####[facility] [address]mmykbpf[address] [place], [place] [address]Dr. Garima Pulliam EO # 0.1 103/ul Normal 0.0-0.7 [facility] Comment on above: Performed By: #### C BC ####[facility] Uxjlugavfq[address] [place], [place] [address]Dr. Garima Pulliam Eosinophils/100 WBC (Bld) 1.0 % Normal 0.9-7.0 [facility] Comment on above: Performed By: #### C BC ####[facility] Jwkeiyumum[address] [place], [place] [address]Dr. Garima Pulliam Erythrocyte distribution width (RBC) [Ratio] 13.4 % Normal 11.0-15.0 [facility] Comment on above: Performed By: #### C BC ####[facility] [address]qwwjvw[address] [place], [place] [address]Dr. Garima Pulliam Hematocrit (Bld) [Volume fraction] 46.3 % Normal 42.0-54.0 [facility] Comment on above: Performed By: #### C BC ####[facility] Ozijkcuons[address] [place], [place] [address]Dr. Garima Pulliam Hemoglobin (Bld) [Mass/Vol] 15.3 g/dL Normal 14.0-18.0 [facility] Comment on above: Performed By: #### C BC ####[facility] Rixgvevcne[address] [place], [place] [address]Dr. Garima Pulliam IG # 0.05 10e3/ul Critically high 0.00-0.03 [facility] Comment on above: Performed By: #### C BC ####[facility] Yjmbyyfckv[address] [place], [place] [address]Dr. Garima Pulliam IG % 0.4 % Normal 0.0-0.5 [facility] Comment on above: Performed By: #### C BC ####[facility] Nputfiecdy[address] [place], [place] [address]Dr. Garima Pulliam LYMPH # 1.7 103/ul Normal 1.2-3.8 [facility] Comment on above: Performed By: #### C BC ####[facility] Akoruocqdq[address] [place], [place] [address]Dr. Garima Pulliam Lymphocytes/100 WBC (Bld) 12.7 % Critically low 20.5-60.0 [facility] Comment on above: Performed By: #### C BC ####[facility] [address] [place] [address]DrAdalberto Pulliam MANUAL DIFF REQ NO Normal [facility] Comment on above: Performed By: #### C BC ####[facility] Ond[address]tsblo[address] [place] [address]Dr. Garima Pulliam MCH (RBC) [Entitic mass] 30.1 pg Normal 25.9-34.0 [facility] Comment on above: Performed By: #### C BC ####[facility] Izomcvxhof[address] [place], [place] [address]Dr. Garima Pulliam MCHC (RBC) [Mass/Vol] 33.0 g/dL Normal 29.9-35.2 [facility] Comment on above: Performed By: #### C BC ####[facility] Xufnaduchk[address] [place], [place] [address]DrAdalberto Pulliam MCV (RBC) [Entitic vol] 91.1 fL Normal 80.0-94.0 [facility] Comment on above: Performed By: #### C BC ####[facility] Knf[address]etmum[address] [place], [place] [address]DrAdalberto Pulliam MONO # 0.9 103/ul Critically high 0.3-0.8 [facility] Comment on above: Performed By: #### C BC ####[facility] R[address]ewpacie[address] [place], [place] [address]DrAdalberto Pulliam Monocytes/100 WBC (Bld) 7.0 % Normal 1.7-12.0 [facility] Comment on above: Performed By: #### C BC ####[facility] [address]zxoqa[address] [place], [place] [address]DrAdalberto Pulliam NEUT # 10.4 103/ul Critically high 1.4-6.5 [facility] Comment on above: Performed By: #### C BC ####[facility] Tavwarrrxr[address] [place], [place] [address]DrAdalberto Pulliam Neutrophils/100 WBC (Bld) 78.7 % Critically high 43.0-75.0 [facility] Comment on above: Performed By: #### C BC ####[facility] [address]eb[address] [place] [address]Dr. Garima Pulliam Platelet mean volume (Bld) [Entitic vol] 8.9 fL Critically low 9.5-13.5 [facility] Comment on above: Performed By: #### C BC ####[facility] Vtvneqccgb[address] [place] [address]Dr. Garima Pulliam PLT 195 103/ul Normal 150-450 [facility] Comment on above: Performed By: #### C BC ####[facility] Ssuelqmswr[address] [place], [place] [address]Dr. Garima Pulliam RBC 5.08 106/ul Normal 4.70-6.10 [facility] Comment on above: Performed By: #### C BC ####[facility] [address]thbdvdy[address] [place], [place] [address]Dr. Garima Pulliam WBC 13.2 103/ul Critically high 4.0-11.0 [facility] Comment on above: Performed By: #### C BC ####[facility] Jquedneaas[address] [place], [place] [address]Dr. Garima Pulliam PROF 14(COMP METB)on 022 Albumin [Mass/Vol] 3.5 g/dL Normal 3.4-5.0 [facility] Comment on above: Performed By: #### C DAVID HSTROPN ####[facility] [address] [place] [address]Dr. Garima Pulliam Albumin/Globulin [Mass ratio] 1.2 {ratio} Normal [facility] Comment on above: Performed By: #### C RAFAT HERNANDEZTROPN ####[facility] Rkbtrgrjjd[address] [place] [address]Dr. Garima Pulliam ALP [Catalytic activity/Vol] 71 U/L Normal 46-116 [facility] Comment on above: Performed By: #### C DAVID HSTROPN ####[facility] [address]cf[address]yx[address] [place] [address]Dr. Garima Pulliam ALT [Catalytic activity/Vol] 37 U/L Normal 16-63 [facility] Comment on above: Performed By: #### C DAVID, HSTROPN ####[facility] W[address]wikfqs[address] [place] [address]Dr. Garima Pulliam Anion gap [Moles/Vol] 4.8 mmol/L Normal [facility] Comment on above: Performed By: #### C DAVID, HSTROPN ####[facility] [address]iyvbyhb[address] [place], [place] [address]Dr. Garima Pulliam AST [Catalytic activity/Vol] 21 U/L Normal 15-37 [facility] Comment on above: Performed By: #### C DAVID, HSTROPN ####[facility] [address]we[address] [place] [address]Dr. Garima Pulliam Bilirubin [Mass/Vol] 0.3 mg/dL Normal 0.2-1.0 [facility] Comment on above: Performed By: #### C DAVID, HSTROPN ####[facility] [address] [place] [address]Dr. Garmia Pulliam Calcium [Mass/Vol] 8.9 mg/dL Normal 8.5-10.1 [facility] Comment on above: Performed By: #### C DAVID, HSTROPN ####[facility] [address]vaadqpqda[address] [place] [address]Dr. Garima Pulliam Chloride [Moles/Vol] 106 mmol/L Normal 98-107 [facility] Comment on above: Performed By: #### C DAVID, HSTROPN ####[facility] Uhqdmaomnv[address] [place] [address]Dr. Garima Pulliam CO2 [Moles/Vol] 29.8 mmol/L Normal 21.0-32.0 [facility] Comment on above: Performed By: #### C DAVID, HSTROPN ####[facility] Uzlcsbehpj[address] [place] [address]Dr. Garima Pulliam Creatinine [Mass/Vol] 0.68 mg/dL Critically low 0.70-1.30 [facility] Comment on above: Performed By: #### C MP, HSTROPN ####[facility] [address]ks[address] [place] [address]Dr. Garima Pulliam EGFR-AF KYRGYZ >60 Normal >=60 [facility] Comment on above: Performed By: #### C MP, HSTROPN ####[facility] Uyaflqzavt64[address] [place] [address]Dr. Chapislan Pulliam EGFR-NON AF KYRGYZ >60 Normal >=60 [facility] Comment on above: Performed By: #### C MP, HSTROPN ####[facility] E[address]qqtpnm[address] [place] [address]Dr. Garima Pulliam Globulin (S) [Mass/Vol] 2.8 g/dL Normal [facility] Comment on above: Performed By: #### C MP, HSTROPN ####[facility] Cannazxmrs[address] [place] [address]Dr. Garima Pulliam Glucose [Mass/Vol] 133 mg/dL Critically high 74-106 [facility] Comment on above: Performed By: #### C MP, HSTROPN ####[facility] Hjgryjurok[address] [place] [address]Dr. Chapisrenu Pulliam Potassium [Moles/Vol] 3.6 mmol/L Normal 3.5-5.1 [facility] Comment on above: Performed By: #### C MP, HSTROPN ####[facility] Tctwqkhkyp[address] [place] [address]Dr. Chapisrenu Pulliam Protein [Mass/Vol] 6.3 g/dL Critically low 6.4-8.2 [facility] Comment on above: Performed By: #### C MP, HSTROPN ####[facility] [address]orapes[address] [place], [place] [address]Dr. Chapisrenu Pulliam Sodium [Moles/Vol] 137 mmol/L Normal 136-145 [facility] Comment on above: Performed By: #### C MP, HSTROPN ####[facility] Pfakkqvugt[address] [place], [place] [address]Dr. Garima Pulliam Urea nitrogen [Mass/Vol] 15.0 mg/dL Normal 7.0-18.0 [facility] Comment on above: Performed By: #### C DAVID HSTROPN ####[facility] P[address]obrwuca[address] [place] [address]Dr. Chapisrenu Pulliam Urea nitrogen/Creatinine [Mass ratio] 22.1 mg/mg Normal [facility] Comment on above: Performed By: #### C DAVID HSTROPN ####[facility] Xaxdfpejqu[address] [place] [address]Dr. Garima Heraclio TROPONIN, HIGH SENSITIVITYon 09-26-2022 HSTROP 12.8 pg/mL Normal 4.0-76.1 [facility] Comment on above: Result Comment: CUT- OFF POINTS HAVE BEEN ESTABLISHED BASED ON THE FOURTH UNIVERSAL DEFINITIONS OF MYOCARDIALINFARCTION. THE UPPER REFERENCE LIMIT (URL) OF TROPONIN, DEFINED THE 99TH PERCENTILE OFcTnI DISTRIBUTION IN A REFERENCE POPULATION, HAS BEEN CONFIRMED THE DECISION THRESHOLDFOR VA DIAGNOSIS. Performed By: #### C DAVID HSTROPN ####[facility] [address]jeax[address] [place] [address]Dr. Chapisrenu Pulliam XR CHEST 1 Von 09-26-2022 XR CHEST 1 V Normal [facility] XR CHEST 1 Von 09-16-2022 XR CHEST 1 V Normal [facility] CBC AUTO DIFFon 09-15-2022 BASO # 0.0 103/ul Normal 0.0-0.1 [facility] Comment on above: Performed By: #### C BC ####[facility] Ekrz[address]pkyc[address] [place] [address]Dr. Garima Heraclio Basophils/100 WBC (Bld) 0.1 % Critically low 0.2-2.0 [facility] Comment on above: Performed By: #### C BC ####[facility] Uumwqylfks3[address] [place] [address]Dr. Garima Pulliam EO # 0.0 103/ul Normal 0.0-0.7 [facility] Comment on above: Performed By: #### C BC ####[facility] Uxolipbcfs[address]54 [place] [address]Dr. Garima Pulliam Eosinophils/100 WBC (Bld) 0.1 % Critically low 0.9-7.0 [facility] Comment on above: Performed By: #### C BC ####[facility] Jyzgeyxoyw80[address] [place] [address]Dr. Garima Pulliam Erythrocyte distribution width (RBC) [Ratio] 14.1 % Normal 11.0-15.0 [facility] Comment on above: Performed By: #### C BC ####[facility] [address]opgsjh[address] [place], [place] [address]Dr. Garima Pulliam Hematocrit (Bld) [Volume fraction] 46.1 % Normal 42.0-54.0 [facility] Comment on above: Performed By: #### C BC ####[facility] Bdmjk[address]joby[address] [place], [place] [address]Dr. Garima Pulliam Hemoglobin (Bld) [Mass/Vol] 15.0 g/dL Normal 14.0-18.0 [facility] Comment on above: Performed By: #### C BC ####[facility] Gjfaajjdie[address] [place], [place] [address]Dr. Garima Pulliam IG # 0.03 10e3/ul Normal 0.00-0.03 [facility] Comment on above: Performed By: #### C BC ####[facility] Hqkmwufazt[address] [place], [place] [address]Dr. Garima Pulliam IG % 0.3 % Normal 0.0-0.5 [facility] Comment on above: Performed By: #### C BC ####[facility] Devkdzldty[address] [place], [place] [address]Dr. Garima Pulliam LYMPH # 0.6 103/ul Critically low 1.2-3.8 The [facility] Comment on above: Performed By: #### C BC ####[facility] Vmscbmltbr[address] [place], [place] [address]Dr. Garima Pulliam Lymphocytes/100 WBC (Bld) 5.8 % Critically low 20.5-60.0 [facility] Comment on above: Performed By: #### C BC ####[facility] S[address]xtspl[address] [place] [id number]. Garima Pulliam MANUAL DIFF REQ NO Normal [facility] Comment on above: Performed By: #### C BC ####[facility] Srbmnvdoyf4177 [place] [id number]. Garima Pulliam MCH (RBC) [Entitic mass] 30.2 pg Normal 25.9-34.0 [facility] Comment on above: Performed By: #### C BC ####[facility] Slalctkcrf06[address] [place] [address]Dr. Garima Pulliam MCHC (RBC) [Mass/Vol] 32.5 g/dL Normal 29.9-35.2 [facility] Comment on above: Performed By: #### C BC ####[facility] Rtlrgaltht9[address] [place] [address]Dr. Garima Pulliam MCV (RBC) [Entitic vol] 92.8 fL Normal 80.0-94.0 [facility] Comment on above: Performed By: #### C BC ####[facility] Giidswxftf3188 [place] [address]Dr. Garima Heraclio MONO # 0.3 103/ul Normal 0.3-0.8 [facility] Comment on above: Performed By: #### C BC ####[facility] Ktcixwdggs8142 [place] [id number]. Garima Heraclio Monocytes/100 WBC (Bld) 3.2 % Normal 1.7-12.0 [facility] Comment on above: Performed By: #### C BC ####[facility] Hinhgmkszs9[address] [place] [id number]. Garima Pulliam NEUT # 9.8 103/ul Critically high 1.4-6.5 [facility] Comment on above: Performed By: #### C BC ####[facility] Posfcfkapd[address] [place] [id number]. Garima Pulliam Neutrophils/100 WBC (Bld) 90.5 % Critically high 43.0-75.0 [facility] Comment on above: Performed By: #### C BC ####[facility] Hqnjatlwsq3322 [place] [id number]. Garima Pulliam Platelet mean volume (Bld) [Entitic vol] 9.4 fL Critically low 9.5-13.5 [facility] Comment on above: Performed By: #### C BC ####[facility] Qzlafgosye9594 [place] [id number]. Garima Pulliam PLT 208 103/ul Normal 150-450 [facility] Comment on above: Performed By: #### C BC ####[facility] Emidcadeht55[address] [place] [address]Dr. Garima Pulliam RBC 4.97 106/ul Normal 4.70-6.10 [facility] Comment on above: Performed By: #### C BC ####[facility] K[address]ukyyhu[address] [place] [address]Dr. Garima Pulliam WBC 10.8 103/ul Normal 4.0-11.0 [facility] Comment on above: Performed By: #### C BC ####[facility] Zqjpwjldlu7184 [place] [address]Dr. Garima Pulliam PROF 14(COMP METB)on 022 Albumin [Mass/Vol] 4.0 g/dL Normal 3.4-5.0 [facility] Comment on above: Performed By: #### C MP ####[facility] Jedmqxinxk1464 [place] [address]Dr. Garima Pulliam Albumin/Globulin [Mass ratio] 1.5 {ratio} Normal [facility] Comment on above: Performed By: #### C MP ####[facility] Mbzltcjpza8228 [place] [address]Dr. Garima Pulliam ALP [Catalytic activity/Vol] 73 U/L Normal 46-116 [facility] Comment on above: Performed By: #### C MP ####[facility] Tdvjeehipy[address] [place] [address]Dr. Garima Pulliam ALT [Catalytic activity/Vol] 42 U/L Normal 16-63 [facility] Comment on above: Performed By: #### C MP ####[facility] Khjdwutqvj76[address] [place] [address]Dr. Garima Pulliam Anion gap [Moles/Vol] 9.1 mmol/L Normal [facility] Comment on above: Performed By: #### C MP ####[facility] Reef[address] [place], [place] [address]Dr. Garima Pulliam AST [Catalytic activity/Vol] 28 U/L Normal 15-37 [facility] Comment on above: Performed By: #### C MP ####[facility] L[address]ye[address] [place], [place] [address]Dr. Garima Pulliam Bilirubin [Mass/Vol] 0.6 mg/dL Normal 0.2-1.0 [facility] Comment on above: Performed By: #### C MP ####[facility] Zhxq[address]nwwe[address] [place], [place] [address]Dr. Garima Pulliam Calcium [Mass/Vol] 8.6 mg/dL Normal 8.5-10.1 [facility] Comment on above: Performed By: #### C MP ####[facility] Zoriipxsbw[address] [place], [place] [address]Dr. Garima Pulliam Chloride [Moles/Vol] 105 mmol/L Normal 98-107 [facility] Comment on above: Performed By: #### C MP ####[facility] Yyynfkqfzj[address] [place], [place] [address]Dr. Garima Pulliam CO2 [Moles/Vol] 28.5 mmol/L Normal 21.0-32.0 [facility] Comment on above: Performed By: #### C MP ####[facility] Lmiwrvrcry[address] [place], [place] [address]Dr. Garima Heraclio Creatinine [Mass/Vol] 0.78 mg/dL Normal 0.70-1.30 [facility] Comment on above: Performed By: #### C MP ####[facility] Lqtztcx[address] [place], [place] [address]Dr. Chapisrenu Heraclio EGFR-AF KYRGYZ >60 Normal >=60 [facility] Comment on above: Performed By: #### C MP ####[facility] Yxtydobqcg6[address] [place], [place] [address]Dr. Garima Pulliam EGFR-NON AF KYRGYZ >60 Normal >=60 [facility] Comment on above: Performed By: #### C MP ####[facility] Duuluvnbwb[address] [place] [address]Dr. Garima Pulliam Globulin (S) [Mass/Vol] 2.7 g/dL Normal [facility] Comment on above: Performed By: #### C MP ####[facility] Ouovbbcqif3574 [place] [address]Dr. Garima Pulliam Glucose [Mass/Vol] 220 mg/dL Critically high 74-106 [facility] Comment on above: Performed By: #### C MP ####[facility] Jcmwnwxydf2881 [place] [address]Dr. Garima Pulliam Potassium [Moles/Vol] 3.6 mmol/L Normal 3.5-5.1 [facility] Comment on above: Performed By: #### C MP ####[facility] Ch[address]pspzjcq[address] [place], [place] [address]Dr. Garima Pulliam Protein [Mass/Vol] 6.7 g/dL Normal 6.4-8.2 [facility] Comment on above: Performed By: #### C MP ####[facility] Ehkoavyuew[address] [place], [place] [address]Dr. Garima Pulliam Sodium [Moles/Vol] 139 mmol/L Normal 136-145 [facility] Comment on above: Performed By: #### C MP ####[facility] Nkkmshnfky[address] [place], [place] [address]Dr. Garima Pulliam Urea nitrogen [Mass/Vol] 11.0 mg/dL Normal 7.0-18.0 [facility] Comment on above: Performed By: #### C MP ####[facility] Stqtjupgls[address] [place], [place] [address]Dr. Garima Pulliam Urea nitrogen/Creatinine [Mass ratio] 14.1 mg/mg Normal [facility] Comment on above: Performed By: #### C MP ####[facility] Prarmuabdy[address] [place], [place] [address]Dr. Garima Pulliam CARDIAC NASH 3-6on 2 CK [Catalytic activity/Vol] 240 U/L Normal 39-308 [facility] Comment on above: Performed By: #### C MREP ####[facility] Aogiizrmkh[address] [place] [address]Dr. Garima Pulliam CK.MB [Mass/Vol] 10.38 ng/mL Critically high <=3.60 [facility] Comment on above: Performed By: #### C MREP ####[facility] Vpuifwxenk6923 [place] [address]Dr. Garima Pulliam HSTROP 18.5 pg/mL Normal 4.0-76.1 [facility] Comment on above: Result Comment: CUT- OFF POINTS HAVE BEEN ESTABLISHED BASED ON THE FOURTH UNIVERSAL DEFINITIONS OF MYOCARDIALINFARCTION. THE UPPER REFERENCE LIMIT (URL) OF TROPONIN, DEFINED THE 99TH PERCENTILE OFcTnI DISTRIBUTION IN A REFERENCE POPULATION, HAS BEEN CONFIRMED THE DECISION THRESHOLDFOR VA DIAGNOSIS. Performed By: #### C MREP ####[facility] Vpvgytulxc[address] [place] [address]Dr. Garima Pulliam CK [Catalytic activity/Vol] 257 U/L Normal 39-308 [facility] Comment on above: Performed By: #### C MREP ####[facility] Tezvixjitf[address] [place], [place] [address]Dr. Garima Pulliam CK.MB [Mass/Vol] 9.89 ng/mL Critically high <=3.60 [facility] Comment on above: Performed By: #### C MREP ####[facility] Ixzxayhniz[address] [place], [place] [address]Dr. Garima Pulliam HSTROP 16.9 pg/mL Normal 4.0-76.1 [facility] Comment on above: Result Comment: CUT- OFF POINTS HAVE BEEN ESTABLISHED BASED ON THE FOURTH UNIVERSAL DEFINITIONS OF MYOCARDIALINFARCTION. THE UPPER REFERENCE LIMIT (URL) OF TROPONIN, DEFINED THE 99TH PERCENTILE OFcTnI DISTRIBUTION IN A REFERENCE POPULATION, HAS BEEN CONFIRMED THE DECISION THRESHOLDFOR VA DIAGNOSIS. Performed By: #### C MREP ####[facility] Ewduiedmsd[address] [place] [address]Dr. Garima Heraclio CBC AUTO DIFFon 10-22-2022 BASO # 0.0 103/ul Normal 0.0-0.1 [facility] Comment on above: Performed By: #### C BC ####[facility] Ckikduhudn5485 [place] [id number]. Garima Pulliam Basophils/100 WBC (Bld) 0.1 % Critically low 0.2-2.0 [facility] Comment on above: Performed By: #### C BC ####[facility] Hjdtsrvcgn80[address] [place] [address]Dr. Garima Pulliam EO # 0.0 103/ul Normal 0.0-0.7 [facility] Comment on above: Performed By: #### C BC ####[facility] [address]zkrkqezex[address] [place], [place] [address]Dr. Chapisrenu Heraclio Eosinophils/100 WBC (Bld) 0.0 % Critically low 0.9-7.0 [facility] Comment on above: Performed By: #### C BC ####[facility] Grjazzrmwf[address] [place], [place] [address]Dr. Garima Pulliam Erythrocyte distribution width (RBC) [Ratio] 13.6 % Normal 11.0-15.0 [facility] Comment on above: Performed By: #### C BC ####[facility] Cmvauvrtgr[address] [place], [place] [address]Dr. Garima Pulliam Hematocrit (Bld) [Volume fraction] 48.2 % Normal 42.0-54.0 [facility] Comment on above: Performed By: #### C BC ####[facility] [address]zvcwafvb[address] [place], [place] [address]Dr. Garima Pulliam Hemoglobin (Bld) [Mass/Vol] 16.0 g/dL Normal 14.0-18.0 [facility] Comment on above: Performed By: #### C BC ####[facility] Enbzbdewno[address] [place], [place] [address]Dr. Chapisrenu Heraclio IG # 0.02 10e3/ul Normal 0.00-0.03 [facility] Comment on above: Performed By: #### C BC ####[facility] Rbkhredvye6804 [place] [id number]. Garima Pulliam IG % 0.3 % Normal 0.0-0.5 [facility] Comment on above: Performed By: #### C BC ####[facility] Cbexbfkqqy7112 [place] [address]Dr. Garima Heraclio LYMPH # 0.5 103/ul Critically low 1.2-3.8 [facility] Comment on above: Performed By: #### C BC ####[facility] Gxwwvhsurj9648 [place] [address]Dr. Garima Heraclio Lymphocytes/100 WBC (Bld) 7.7 % Critically low 20.5-60.0 [facility] Comment on above: Performed By: #### C BC ####[facility] Qglaiyesyc[address] [place], [place] [address]Dr. Chapisrenu Pulliam MANUAL DIFF REQ NO Normal [facility] Comment on above: Performed By: #### C BC ####[facility] Vdoyuewvys[address] [place], [place] [address]Dr. Garima Heraclio MCH (RBC) [Entitic mass] 30.6 pg Normal 25.9-34.0 [facility] Comment on above: Performed By: #### C BC ####[facility] [address]trbypgzyb[address] [place], [place] [address]Dr. Garima Pulliam MCHC (RBC) [Mass/Vol] 33.2 g/dL Normal 29.9-35.2 [facility] Comment on above: Performed By: #### C BC ####[facility] Nbpjxy[address]sb[address] [place], [place] [address]Dr. Garima Heraclio MCV (RBC) [Entitic vol] 92.2 fL Normal 80.0-94.0 [facility] Comment on above: Performed By: #### C BC ####[facility] Peikdayrpr[address] [place], [place] [address]Dr. Garima Pulliam MONO # 0.0 103/ul Critically low 0.3-0.8 [facility] Comment on above: Performed By: #### C BC ####[facility] Yqrellmebn3082 [place] [id number]. Garima Pulliam Monocytes/100 WBC (Bld) 0.4 % Critically low 1.7-12.0 [facility] Comment on above: Performed By: #### C BC ####[facility] Brlkjcvwxp[address] [place] [id number]. Garima Pulliam NEUT # 6.2 103/ul Normal 1.4-6.5 [facility] Comment on above: Performed By: #### C BC ####[facility] Cbowrlcfxs7[address] [place] [address]Dr. Garima Pulliam Neutrophils/100 WBC (Bld) 91.5 % Critically high 43.0-75.0 [facility] Comment on above: Performed By: #### C BC ####[facility] Qsjnfskojh7850 [place] [address]Dr. Garima Pulliam Platelet mean volume (Bld) [Entitic vol] 8.7 fL Critically low 9.5-13.5 [facility] Comment on above: Performed By: #### C BC ####[facility] Aemieheumg[address] [place] [address]Dr. Garima Pulliam PLT 179 103/ul Normal 150-450 [facility] Comment on above: Performed By: #### C BC ####[facility] Apjhpagwmv5330 [place] [id number]. Garima Pulliam RBC 5.23 106/ul Normal 4.70-6.10 [facility] Comment on above: Performed By: #### C BC ####[facility] Dzbcgxbfkm12[address] [place] [address]Dr. Garima Pulliam WBC 6.7 103/ul Normal 4.0-11.0 [facility] Comment on above: Performed By: #### C BC ####[facility] Nnwqhrwhzd04[address] [place] [address]Dr. Garima Pulliam PROF CHEM 8 (BAS METB)on Anion gap [Moles/Vol] 12.1 mmol/L Normal [facility] Comment on above: Performed By: #### B MP ####[facility] Cojjwdkpyj9[address] [place] [id number]. Garima Pulliam Calcium [Mass/Vol] 8.7 mg/dL Normal 8.5-10.1 [facility] Comment on above: Performed By: #### B MP ####[facility] Xsikasidzi5234 [place] [id number]. Garima Pulliam Chloride [Moles/Vol] 105 mmol/L Normal 98-107 [facility] Comment on above: Performed By: #### B MP ####[facility] Mvpvpeqdev6558 [place] [id number]. Garima Pulliam CO2 [Moles/Vol] 25.5 mmol/L Normal 21.0-32.0 [facility] Comment on above: Performed By: #### B MP ####[facility] Nyciqjsimv9822 [place] [address]Dr. Garima Pulliam Creatinine [Mass/Vol] 0.63 mg/dL Critically low 0.70-1.30 [facility] Comment on above: Performed By: #### B MP ####[facility] Pcyzpbqorf7967 [place] [address]Dr. Garima Pulliam EGFR-AF KYRGYZ >60 Normal >=60 [facility] Comment on above: Performed By: #### B MP ####[facility] Gamvmvruqw9698 [place] [address]Dr. Garima Pulliam EGFR-NON AF KYRGYZ >60 Normal >=60 [facility] Comment on above: Performed By: #### B MP ####[facility] Vuypqiwsel4192 [place] [address]Dr. Garima Pulliam Glucose [Mass/Vol] 162 mg/dL Critically high 74-106 [facility] Comment on above: Performed By: #### B MP ####[facility] [address]vnteugoii[address] [place], [place] [address]Dr. Garmia Pulliam Potassium [Moles/Vol] 3.6 mmol/L Normal 3.5-5.1 [facility] Comment on above: Performed By: #### B MP ####[facility] Dirvvhbvds[address] [place], [place] [address]Dr. Garima Pulliam Sodium [Moles/Vol] 139 mmol/L Normal 136-145 [facility] Comment on above: Performed By: #### B DAVID ####[facility] Etehvemvnd0995 [place] [address]Dr. Garima Pulliam Urea nitrogen [Mass/Vol] 9.0 mg/dL Normal 7.0-18.0 [facility] Comment on above: Performed By: #### B DAVID ####[facility] Qwwwiqadpa1414 [place] [address]Dr. Garima Pulliam Urea nitrogen/Creatinine [Mass ratio] 14.3 mg/mg Normal [facility] Comment on above: Performed By: #### B DAVID ####[facility] Fdpbzbgjhv2021 [place] [address]Dr. Chapisrenu Pulliam CARDIAC NASH ADMITon 09-12- 022 CK [Catalytic activity/Vol] 304 U/L Normal 39-308 [facility] Comment on above: Performed By: #### B NANCY HERNANDEZ ####[facility] Nkfssprchy99[address] [place] [address]Dr. Garima Pulliam CK.MB [Mass/Vol] 11.81 ng/mL Critically high <=3.60 [facility] Comment on above: Performed By: #### B NANCY HERNANDEZ ####[facility] Awyhulymur1841 [place] [address]Dr. Garima Heraclio HSTROP 13.3 pg/mL Normal 4.0-76.1 [facility] Comment on above: Result Comment: CUT- OFF POINTS HAVE BEEN ESTABLISHED BASED ON THE FOURTH UNIVERSAL DEFINITIONS OF MYOCARDIALINFARCTION. THE UPPER REFERENCE LIMIT (URL) OF TROPONIN, DEFINED THE 99TH PERCENTILE OFcTnI DISTRIBUTION IN A REFERENCE POPULATION, HAS BEEN CONFIRMED THE DECISION THRESHOLDFOR VA DIAGNOSIS. Performed By: #### B NANCY HERNANDEZ ####[facility] Rvjyrkpcdl[address] [place] [address]Dr. Garima Pulliam DORIS 133 ng/mL Critically high 16-96 [facility] Comment on above: Performed By: #### B NANCY HERNANDEZ ####[facility] Kotozbojxz[address] [place] [address]Dr. Garima Pulliam CBC AUTO DIFFon 09-12-2022 BASO # 0.0 103/ul Normal 0.0-0.1 [facility] Comment on above: Performed By: #### C BC ####[facility] [address] [place], [place] [id number]. Garima Heraclio Basophils/100 WBC (Bld) 0.2 % Normal 0.2-2.0 [facility] Comment on above: Performed By: #### C BC ####[facility] Ziiuehjpmv[address] [place], [place] [address]Dr. Garima Heraclio EO # 0.2 103/ul Normal 0.0-0.7 [facility] Comment on above: Performed By: #### C BC ####[facility] Xlmvbdtqxo[address] [place], [place] [address]Dr. Chapisrenu Pulliam Eosinophils/100 WBC (Bld) 1.3 % Normal 0.9-7.0 [facility] Comment on above: Performed By: #### C BC ####[facility] Kcggruksgb[address] [place], [place] [address]Dr. Garima Pulliam Erythrocyte distribution width (RBC) [Ratio] 13.7 % Normal 11.0-15.0 [facility] Comment on above: Performed By: #### C BC ####[facility] Fnucurzvug[address] [place], [place] [address]Dr. Garima Pulliam Hematocrit (Bld) [Volume fraction] 46.4 % Normal 42.0-54.0 [facility] Comment on above: Performed By: #### C BC ####[facility] [address] [place], [place] [address]Dr. Garima Pulliam Hemoglobin (Bld) [Mass/Vol] 15.7 g/dL Normal 14.0-18.0 [facility] Comment on above: Performed By: #### C BC ####[facility] [address] [place], [place] [address]Dr. Garima Pulliam IG # 0.04 10e3/ul Critically high 0.00-0.03 [facility] Comment on above: Performed By: #### C BC ####[facility] [address] [place] [id number]. Garima Pulliam IG % 0.3 % Normal 0.0-0.5 [facility] Comment on above: Performed By: #### C BC ####[facility] [address] [place] [id number]. Garima Pulliam LYMPH # 1.7 103/ul Normal 1.2-3.8 [facility] Comment on above: Performed By: #### C BC ####[facility] [address] [place] [id number]. Garima Pulliam Lymphocytes/100 WBC (Bld) 11.5 % Critically low 20.5-60.0 [facility] Comment on above: Performed By: #### C BC ####[facility] [address] [place] [id number]. Garima Pulliam MANUAL DIFF REQ NO Normal [facility] Comment on above: Performed By: #### C BC ####[facility] [address] [place] [id number]. Garima Pulliam MCH (RBC) [Entitic mass] 31.0 pg Normal 25.9-34.0 [facility] Comment on above: Performed By: #### C BC ####[facility] [address] [place] [id number]. Garima Pulliam MCHC (RBC) [Mass/Vol] 33.8 g/dL Normal 29.9-35.2 [facility] Comment on above: Performed By: #### C BC ####[facility] [address] [place] [id number]. Garima Pulliam MCV (RBC) [Entitic vol] 91.7 fL Normal 80.0-94.0 [facility] Comment on above: Performed By: #### C BC ####[facility] [address] [place] [id number]. Garima Heraclio MONO # 0.8 103/ul Normal 0.3-0.8 [facility] Comment on above: Performed By: #### C BC ####[facility] [address] [place] [id number]. Garima Pulliam Monocytes/100 WBC (Bld) 5.2 % Normal 1.7-12.0 [facility] Comment on above: Performed By: #### C BC ####[facility] [address] [place] [id number]. Garima Pulliam NEUT # 11.7 103/ul Critically high 1.4-6.5 [facility] Comment on above: Performed By: #### C BC ####[facility] [address] [place] [id number]. Garima Pulliam Neutrophils/100 WBC (Bld) 81.5 % Critically high 43.0-75.0 [facility] Comment on above: Performed By: #### C BC ####[facility] [address] [place] [address]Dr. Garima Pulliam Platelet mean volume (Bld) [Entitic vol] 8.6 fL Critically low 9.5-13.5 [facility] Comment on above: Performed By: #### C BC ####[facility] [address] [place] [id number]. Garima Pulliam PLT 191 103/ul Normal 150-450 [facility] Comment on above: Performed By: #### C BC ####[facility] [address] [place], [place] [id number]. Garima Pulliam RBC 5.06 106/ul Normal 4.70-6.10 [facility] Comment on above: Performed By: #### C BC ####[facility] [address] [place], [place] [id number]. Garima Pulliam WBC 14.4 103/ul Critically high 4.0-11.0 [facility] Comment on above: Performed By: #### C BC ####[facility] [address] [place], [place] [address]Dr. Garima Pulliam [facility] SARS-CoV-2 (COVID-19) RNA MARIE+probe Ql (Unsp spec) Not detected Normal NOT DETECTED [facility] Comment on above: Result Comment: When [...] for this test is supported by the [employer] of Health and Human Service's declaration that [...] be used). Performed By: #### C VDTBH ####[facility] [address] [place], [place] [address]Dr. Garima Pulliam LACTATE/LACTIC ACIDon 2021 Lactate [Moles/Vol] 1.0 mmol/L Normal 0.4-1.9 [facility] Comment on above: Performed By: #### L ACT ####[facility] [address] [place], [place] [address]Dr. Garima Pulliam PROF CHEM 8 (BAS METB)on Anion gap [Moles/Vol] 11.6 mmol/L Normal [facility] Comment on above: Performed By: #### B NANCY HERNANDEZ ####[facility] [address] [place] [address]Dr. Garima Pulliam Calcium [Mass/Vol] 9.2 mg/dL Normal 8.5-10.1 [facility] Comment on above: Performed By: #### B NANCY HERNANDEZ ####[facility] [address] [place] [address]Dr. Garima Pulliam Chloride [Moles/Vol] 105 mmol/L Normal 98-107 [facility] Comment on above: Performed By: #### B MP, CMADM ####[facility] [address] [place] [id number]. Garima Pulliam CO2 [Moles/Vol] 25.9 mmol/L Normal 21.0-32.0 [facility] Comment on above: Performed By: #### B DAVID, CMADM ####[facility] [address] [place] [address]Dr. Garima Pulliam Creatinine [Mass/Vol] 0.72 mg/dL Normal 0.70-1.30 [facility] Comment on above: Performed By: #### B DAVID, CMADM ####[facility] [address] [place] [id number]. Garima Pulliam EGFR-AF KYRGYZ >60 Normal >=60 [facility] Comment on above: Performed By: #### B DAVID, CMADM ####[facility] [address] [place] [address]Dr. Chapisrenu Pulliam EGFR-NON AF KYRGYZ >60 Normal >=60 [facility] Comment on above: Performed By: #### B DAVID, CMAANA ROSA ####[facility] [address] [place] [address]Dr. Garima Pulliam Glucose [Mass/Vol] 111 mg/dL Critically high 74-106 [facility] Comment on above: Performed By: #### B DAVID, CMADM ####[facility] [address] [place] [address]Dr. Chapisrenu Pulliam Potassium [Moles/Vol] 3.5 mmol/L Normal 3.5-5.1 [facility] Comment on above: Performed By: #### B DAVID, CMADM ####[facility] [address] [place] [address]Dr. Chapisrenu Pulliam Sodium [Moles/Vol] 139 mmol/L Normal 136-145 [facility] Comment on above: Performed By: #### B DAVID, CMADM ####[facility] [address] [place] [address]Dr. Garima Pulliam Urea nitrogen [Mass/Vol] 7.0 mg/dL Normal 7.0-18.0 [facility] Comment on above: Performed By: #### B DAVID, CMADM ####[facility] [address] [place], [place] [address]Xe. Garima Pulliam Urea nitrogen/Creatinine [Mass ratio] 9.7 mg/mg Normal [facility] Comment on above: Performed By: #### B MP, CMADM ####[facility] [address] [place], [place] [address]Du. Gairma Pulliam XR CHEST 1 Von 09-12-2022 XR CHEST 1 V Normal [facility] Encounters Encounter Date Encounter Type [...] Facility:H1 Payers Date Payer Category Payer Unknown [id number] 1960 Medicaid [id number] 1960 Unknown [id number] 1960 Unknown [id number] 1954 Unknown [id number] 2.16.84 0.1.209139.3.579.2.593 1954 Unknown [id number] 2.16.84 0.1.348863.3.579.2.593 1954 Unknown [id number] 2.16.84 0.1.931528.3.579.2.593 1954 Unknown [id number] 2.16.84 0.1.935841.3.579.2.593 1954 Unknown [id number] 2.16.84 0.1.585740.3.579.2.593 1954 Unknown [id number] 2.16.84 0.1.141936.3.579.2.593 1954 Unknown [id number] 2.16.84 0.1.397363.3.579.2.593 1954 Unknown [id number] 2.16.84 0.1.086881.3.579.2.593 1954 Unknown [id number] 2.16.84 0.1.522459.3.579.2.593 1954 Unknown [id number] 2.16.84 0.1.365087.3.579.2.593 1954 Unknown [id number] 2.16.84 0.1.351583.3.579.2.593 1954 Unknown [id number] 2.16.84 0.1.042552.3.579.2.593 1954 Unknown [id number] 2.16.84 0.1.357828.3.579.2.593 1954 Unknown [id number] 2.16.84 0.1.720267.3.579.2.593 1954 Unknown [id number] 2.16.84 0.1.388606.3.579.2.593 1954 Unknown [id number] 2.16.84 0.1.585755.3.579.2.593 1954 Unknown [id number] 2.16.84 0.1.223378.3.579.2.593 1954 Unknown [id number] 2.16.84 0.1.576189.3.579.2.593 1954 Unknown [id number] 2.16.84 0.1.174943.3.579.2.593 1954 Unknown [id number] 2.16.84 0.1.552748.3.579.2.593 Summary Purpose Family History No Family History Records Found Advance Directives No Advanced Directives Records Found Additional Source Comments (unrecognized sect ion and content) No Status Records Found INFORMATION SOURCE (unrecogn ized section and content) DATE CREATED AUTHOR 04/08/2023 [facility] FOR RECORDS PERTAINING TO PATIENTS [...] THE PRIMARY CLINICAL RECORDS. [facility]. provides no warranty or guarantee of the accuracy or completeness of information in this document.
[2024-11-21 19:58] VITALS: O2SAT 93
--- NOTE | 2024-11-21 19:59 | PC.NURSE ---
Chronic SOB. Finger discolored from smoking. Always states [facility] of [facility] because [facility], though we have sent RX's to his pharmacy that he never filled.
[2024-11-21 20:02] VITALS: PULSE 70; O2SAT 99
--- NOTE | 2024-11-21 20:02 | RESP.RT ---
decreased to 1L nasal cannula
[2024-11-21] MEDS: IPRATROPIUM/ALBUTEROL SULFATE 3 ML AMPUL.NEB IH ×2 (20:04→20:16)
--- NOTE | 2024-11-21 20:07 | ED_ITS ---
HPI - SOB/Dyspnea General Chief Complaint: Shortness of Breath/Dyspnea Stated Complaint: shortness of breath Time Seen by Provider: 11/21/24 20:02 Source: patient Mode of arrival: Wheelchair Limitations: no limitations History of Present Illness HPI Narrative: This 69-year-old male who is well-known to this emergency department presents for evaluation of cough, wheezing and shortness of breath. He has a history of COPD. He continues to smoke. He states that he is out of his rescue inhaler and out of his nebulizer medication. He denies any fever or chest pain. He denies any fever or chest pain. Related Data Home Medications ?Medication ?Instructions ?Recorded ?Confirmed albuterol sulfate 90 mcg/actuation 2 inh inhalation Q6H PRN shortness 03/13/24 10/02/24 aerosol inhaler of breath or wheezing Previous Rx's ?Medication ?Instructions ?Recorded losartan 100 mg tablet 100 mg PO DAILY #30 tabs 12/27/23 albuterol sulfate 2.5 mg/3 mL 2.5 mg (3 mL) inhalation Q6H PRN 05/26/24 (0.083 %) solution for nebulization shortness of breath or wheezing #90 mL loratadine 10 mg tablet (Claritin) 10 mg PO DAILY #20 tabs 05/30/24 albuterol sulfate 2.5 mg/3 mL 2.5 mg (3 mL) inhalation Q6H PRN 08/07/24 (0.083 %) solution for nebulization shortness of breath or wheezing #90 mL albuterol sulfate 90 mcg/actuation 2 inh inhalation Q4H PRN shortness 08/07/24 aerosol inhaler of breath or wheezing #8.5 grams albuterol sulfate 2.5 mg/3 mL 1.25 mg (1.5 mL) inhalation Q6H 09/04/24 (0.083 %) solution for nebulization PRN bronchospasm #75 mL albuterol sulfate 90 mcg/actuation 2 inh inhalation Q6H PRN shortness 09/04/24 aerosol inhaler of breath or wheezing #6.7 grams albuterol sulfate 2.5 mg/3 mL 2.5 mg (3 mL) inhalation Q6H PRN 09/12/24 (0.083 %) solution for nebulization shortness of breath or wheezing #90 mL prednisone 20 mg tablet See Rx Instructions .Route 09/21/24 .COMPLEX #12 tabs albuterol sulfate 2.5 mg/0.5 mL 2.5 mg (0.5 mL) inhalation Q4H PRN 10/02/24 solution for nebulization shortness of breath or wheezing #30 ea albuterol sulfate 90 mcg/actuation 2 inh inhalation Q4H PRN shortness 10/02/24 aerosol inhaler of breath or wheezing #6.7 grams albuterol sulfate 2.5 mg/3 mL 2.5 mg (3 mL) inhalation Q6H PRN 10/07/24 (0.083 %) solution for nebulization shortness of breath or wheezing #90 mL albuterol sulfate 90 mcg/actuation 2 inh inhalation Q4H PRN shortness 10/07/24 aerosol inhaler of breath or wheezing #8.5 grams hydrocodone 5 mg-acetaminophen 325 1 tab PO Q4H PRN pain #10 tabs 11/11/24 mg tablet ketorolac 10 mg tablet 10 mg PO Q8H PRN pain 1 day #10 11/11/24 tabs metformin 500 mg tablet 500 mg PO BID #30 tabs 11/11/24 ondansetron 4 mg disintegrating 4 mg PO Q4H PRN nausea and 11/11/24 tablet vomiting 3 days #6 tabs tamsulosin 0.4 mg capsule (Flomax) 0.4 mg PO DAILY 7 days #7 caps 11/11/24 tamsulosin 0.4 mg capsule (Flomax) 0.4 mg PO DAILY #14 caps 11/12/24 Allergies Allergy/AdvReac Type Severity Reaction Status Date / Time No Known Drug Allergies Allergy Verified 11/21/24 19:22 Review of Systems ROS Status of ROS 10 or more systems reviewed and unremark able except as noted in history and below [facility] Medical History (Updated 11/21/24 @ 20:12 by Teresa Ag MD) Hypokalemia ?E87.6 - Hypokalemia (ICD-10) New onset type 2 diabetes mellitus ?E11.9 - Type 2 diabetes mellitus without complications (ICD-10) Lower extremity edema ?R60.0 - Localized edema (ICD-10) Edema ?R60.9 - Edema, unspecified (ICD-10) Acute hyperglycemia ?R73.9 - Hyperglycemia, unspecified (ICD-10) Tobacco abuse ?Z72.0 - Tobacco use (ICD-10) HTN (hypertension) ?I10 - Essential (primary) hypertension (ICD-10) Community acquired pneumonia ?J18.9 - Pneumonia, unspecified organism (ICD-10) Chronic obstructive pulmonary disease ?J44.9 - Chronic obstructive pulmonary disease, unspecified (ICD-10) Acute exacerbation of chronic obstructive pulmonary disease (COPD) ?J44.1 - Chronic obstructive pulmonary disease with (acute) exacerbation (ICD-10) RLL pneumonia ?J18.9 - Pneumonia, unspecified organism (ICD-10) COPD (chronic obstructive pulmonary disease) ?J44.9 - Chronic obstructive pulmonary disease, unspecified (ICD-10) Surgical History (Updated 01/29/24 @ 06:45 by Latonia Martin RN) Hx of tonsillectomy ?Z90.89 - Acquired absence of other organs (ICD-10) Family History (Updated 12/25/23 @ 21:28 by Kym Ordaz) Mother Family history of cancer Family history of hypertension Father Family history of cancer Social History Within the past year, how often did you have a drink containing alcohol: 4 or more times a week Within the past year, how many standard drinks containing alcohol did you have on a typical day: 3 or 4 Within the past year, how often did you have six or more drinks on one occasion: less than monthly Total score: 3 Score interpretation: A score of 4 or more indicates drinking is likely to affect patient's safety. Smoking status: Current every day smoker Non-prescribed substance use: cannabis (any form) Previous occupational history: retired Highest level of school completed/degree received: high school graduate Are you now , , , , never or living with a partner: In a typical week, how many times do you talk on the telephone with family, friends, or neighbors: twice per week How often do you get together with friends or relatives: once per week How often do you attend zoroastrianism or hoahaoism services: never Do you belong to any clubs or organizations such as zoroastrianism groups unions, fraternal or athletic groups, or school groups: no Total score: 1 Score interpretation: A score of less than or equal to 1 indicates the most socially isolated. Little interest or pleasure in doing things: not at all Feeling down, depressed, or hopeless: not at all Feel stressed/tense/nervous/anxious/difficulty sleeping: not at all Do you think of yourself as: straight/heterosexual Gender Identity: male Exam Narrative Exam Narrative: Vital signs and Nursing Notes reviewed: Patient is afebrile with a normal pulse, blood pressure is elevated at 177/101, he is not hypoxic with pulse ox of 99% on 2 L nasal cannula General: Awake, alert, oriented, no acute distress, lying comfortably on the stretcher HEENT: Normocephalic atraumatic, mucous membranes are moist and pink, eyes are clear, normal conjunctiva, vision is grossly intact Chest: Diminished breath sounds with faint expiratory wheezing, patient is speaking in complete sentences, no rhonchi or rales appreciated, no accessory muscle use CVS: Regular rate and rhythm S1-S2, no murmurs rubs or gallops, pulses are brisk and equal bilaterally ABD: Soft, nondistended, nontender, no rebound guarding or rigidity, bowel sounds are normal, no pulsatile masses appreciated Extremities: Moving all extremities, no lower extremity tenderness or swelling noted, negative Homans' sign, pulses are brisk and equal bilaterally Skin: Normal in appearance without rash,pallor, petechiae or purpura Neuro: No focal deficits Constitutional Vital Signs, click to edit/add: Last Vital Signs Temp 98 F 11/21/24 19:18 Pulse 70 11/21/24 20:02 Resp 20 11/21/24 20:02 BP 177/101 H 11/21/24 19:18 Pulse Ox 99 11/21/24 20:02 O2 Del Method Nasal Cannula 11/21/24 20:02 O2 Flow Rate 2 11/21/24 20:02 Course Vital Signs Vital signs: Vital Signs Temperature 98 F 11/21/24 19:18 Pulse Rate 76 11/21/24 19:18 Respiratory Rate 20 11/21/24 19:18 Blood Pressure 177/101 H 11/21/24 19:18 Pulse Oximetry 93 L 11/21/24 19:18 Oxygen Delivery Method Nasal Cannula 11/21/24 19:18 Oxygen Delivery Flow Rate 2 11/21/24 19:18 Temperature 98 F 11/21/24 19:18 Pulse Rate 70 11/21/24 20:02 Respiratory Rate 20 11/21/24 20:02 Blood Pressure 177/101 H 11/21/24 19:18 Pulse Oximetry 99 11/21/24 20:02 Oxygen Delivery Method Nasal Cannula 11/21/24 20:02 Oxygen Delivery Flow Rate 2 11/21/24 20:02 MDM - SOB/Dyspnea MDM Narrative Medical decision making narrative: This 69-year-old male with a history of COPD and tobacco use presents for evaluation of cough, wheezing and shortness of breath. He is out of his rescue medications and his nebulizer solution. He does have a nebulizer at home. Upon arrival he had some faint wheezing and was given a DuoNeb treatment with clinical improvement. He denies any chest pain or fever. He will be given an albuterol MDI rescue inhaler dispensed from the emergency department as well as 1 DuoNeb Nebules and given prescriptions for the both. He states that he is out of his medications because he missed his last appointment which is what he told me the last time I saw him. He was encouraged to follow-up closely with his family physician as the emergency department cannot be his primary source of obtaining his medication refills. Discharge Plan Discharge Chief Complaint: Shortness of Breath/Dyspnea Clinical Impression: COPD (chronic obstructive pulmonary disease), Medication refill Patient Disposition: Home, Self-Care Time of Disposition Decision: 20:12 Condition: Good Prescriptions / Home Meds: No Action losartan 100 mg tablet 100 mg PO DAILY Qty: 30 11RF albuterol sulfate 90 mcg/actuation HFA aerosol inhaler 2 inh inhalation Q6H PRN (Reason: shortness of breath or wheezing) albuterol sulfate 2.5 mg /3 mL (0.083 %) solution for nebulization 2.5 mg inhalation Q6H PRN (Reason: shortness of breath or wheezing) Qty: 90 0RF albuterol sulfate 2.5 mg /3 mL (0.083 %) solution for nebulization 2.5 mg inhalation Q6H PRN (Reason: shortness of breath or wheezing) Qty: 90 0RF albuterol sulfate 90 mcg/actuation HFA aerosol inhaler 2 inh inhalation Q4H PRN (Reason: shortness of breath or wheezing) Qty: 8.5 0RF albuterol sulfate 2.5 mg /3 mL (0.083 %) solution for nebulization 2.5 mg inhalation Q6H PRN (Reason: shortness of breath or wheezing) Qty: 90 0RF prednisone 20 mg tablet See Rx Instructions .ROUTE .COMPLEX Qty: 12 0RF Rx Instructions: 3 tabs daily for 2 days, then 2 tabs daily for 2 days, then 1 tab daily for 2 days albuterol sulfate 2.5 mg/0.5 mL solution for nebulization 2.5 mg inhalation Q4H PRN (Reason: shortness of breath or wheezing) Qty: 30 2RF albuterol sulfate 90 mcg/actuation HFA aerosol inhaler 2 inh inhalation Q4H PRN (Reason: shortness of breath or wheezing) Qty: 6.7 0RF loratadine [Claritin] 10 mg tablet 10 mg PO DAILY Qty: 20 0RF albuterol sulfate 2.5 mg /3 mL (0.083 %) solution for nebulization 1.25 mg inhalation Q6H PRN (Reason: bronchospasm) Qty: 75 0RF albuterol sulfate 90 mcg/actuation HFA aerosol inhaler 2 inh inhalation Q6H PRN (Reason: shortness of breath or wheezing) Qty: 6.7 0RF albuterol sulfate 90 mcg/actuation HFA aerosol inhaler 2 inh inhalation Q4H PRN (Reason: shortness of breath or wheezing) Qty: 8.5 0RF albuterol sulfate 2.5 mg /3 mL (0.083 %) solution for nebulization 2.5 mg inhalation Q6H PRN (Reason: shortness of breath or wheezing) Qty: 90 0RF hydrocodone-acetaminophen 5-325 mg tablet 1 tab PO Q4H PRN (Reason: pain) Qty: 10 0RF ketorolac 10 mg tablet 10 mg PO Q8H PRN (Reason: pain) 1 Days Qty: 10 0RF tamsulosin [Flomax] 0.4 mg capsule 0.4 mg PO DAILY 7 Days Qty: 7 0RF ondansetron 4 mg tablet,disintegrating 4 mg PO Q4H PRN (Reason: nausea and vomiting) 3 Days Qty: 6 0RF metformin 500 mg tablet 500 mg PO BID Qty: 30 0RF tamsulosin [Flomax] 0.4 mg capsule 0.4 mg PO DAILY Qty: 14 0RF Print Language: Trinidadian Instructions: COPD (Chronic Obstructive Pulmonary Disease) (ED) Referrals: SERG DUENAS [Primary Care Provider] - 1 week
[2024-11-21] MEDS: ALBUTEROL SULFATE 200 PUFF/6.7 GM INHALER IH (20:16)
== END 2024-11-21 20:22 | disposition home or self-care (01) ==
PROVIDERS: Emergency Provider Emergency Medicine
DX: Z76.0 Encounter for issue of repeat prescription (principal); J44.9 Chronic obstructive pulmonary disease, unspecified; R06.02 Shortness of breath; F17.200 Nicotine dependence, unspecified, uncomplicated
CPT/HCPCS: 94640; 99285

== ENCOUNTER 2024-11-24 19:48 | Emergency (ER) | payer SELFPAY ==
--- OUTSIDE RECORDS SUMMARY | 2024-11-24 20:43 | XMS_ITS | CCD ---
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 Garima Pulliam Basophils/100 WBC (Bld) 0.3 % Normal 0.2-2.0 [facility] Comment on above: Performed By: #### C BC ####[facility] Zbkodvcrtg0329 [place] [address]DrAdalberto Pulliam EO # 0.3 103/ul Normal 0.0-0.7 [facility] Comment on above: Performed By: #### C BC ####[facility] Hwpcfyehyg[address] [place], [place] [address]Dr. Garima Pulliam Eosinophils/100 WBC (Bld) 2.8 % Normal 0.9-7.0 [facility] Comment on above: Performed By: #### C BC ####[facility] Wavbbarsiw17[address] [place] [address]Dr. Garima Pulliam Erythrocyte distribution width (RBC) [Ratio] 13.4 % Normal 11.0-15.0 [facility] Comment on above: Performed By: #### C BC ####[facility] Wtxnjioqta46[address] [place] [address]Dr. Garmia Pulliam Hematocrit (Bld) [Volume fraction] 45.7 % Normal 42.0-54.0 [facility] Comment on above: Performed By: #### C BC ####[facility] Stpyuyaatx13[address] [place] [address]Dr. Garima Pulliam Hemoglobin (Bld) [Mass/Vol] 15.2 g/dL Normal 14.0-18.0 [facility] Comment on above: Performed By: #### C BC ####[facility] Exgrcpkhhk[address] [place] [address]Dr. Garima Pulliam IG # 0.02 10e3/ul Normal 0.00-0.03 [facility] Comment on above: Performed By: #### C BC ####[facility] Aitylezygi3933 [place] [address]Dr. Garima Pulliam IG % 0.2 % Normal 0.0-0.5 [facility] Comment on above: Performed By: #### C BC ####[facility] Xkuhkzxfwd3761 [place] [address]Dr. Garima Pulliam LYMPH # 2.1 103/ul Normal 1.2-3.8 [facility] Comment on above: Performed By: #### C BC ####[facility] Xrxnfuofii9989 [place] [address]Dr. Garima Pulliam Lymphocytes/100 WBC (Bld) 23.7 % Normal 20.5-60.0 [facility] Comment on above: Performed By: #### C BC ####[facility] Bwbrflxkve5324 [place] [address]Dr. Garima Heraclio MANUAL DIFF REQ NO Normal [facility] Comment on above: Performed By: #### C BC ####[facility] Gvcrokauym6741 [place] [address]Dr. Garima Pulliam MCH (RBC) [Entitic mass] 30.4 pg Normal 25.9-34.0 [facility] Comment on above: Performed By: #### C BC ####[facility] Rdeblezcpc1476 [place] [address]Dr. Garima Heraclio MCHC (RBC) [Mass/Vol] 33.3 g/dL Normal 29.9-35.2 [facility] Comment on above: Performed By: #### C BC ####[facility] Fvxyyprbku[address] [place], [place] [address]Dr. Chapisrenu Pulliam MCV (RBC) [Entitic vol] 91.4 fL Normal 80.0-94.0 [facility] Comment on above: Performed By: #### C BC ####[facility] Ipxqidflkh87[address] [place], [place] [address]Dr. Garima Heraclio MONO # 0.7 103/ul Normal 0.3-0.8 [facility] Comment on above: Performed By: #### C BC ####[facility] Gbpnytfung[address] [place], [place] [address]Dr. Chapisrenu Pulliam Monocytes/100 WBC (Bld) 8.3 % Normal 1.7-12.0 [facility] Comment on above: Performed By: #### C BC ####[facility] Qiimajaysn1669 [place] [address]Dr. Chapisrenu Heraclio NEUT # 5.8 103/ul Normal 1.4-6.5 [facility] Comment on above: Performed By: #### C BC ####[facility] Pqmoknyjjo[address] [place], [place] [address]Dr. Garima Pulliam Neutrophils/100 WBC (Bld) 64.7 % Normal 43.0-75.0 [facility] Comment on above: Performed By: #### C BC ####[facility] Zoglppuqcz0463 [place] [address]Dr. Garima Pulliam Platelet mean volume (Bld) [Entitic vol] 8.6 fL Critically low 9.5-13.5 [facility] Comment on above: Performed By: #### C BC ####[facility] Ifhqtdkqoi8459 [place] [address]Dr. Garima Pulliam PLT 230 103/ul Normal 150-450 [facility] Comment on above: Performed By: #### C BC ####[facility] Hakbplkdlp8268 [place] [address]Dr. Chapisrenu Heraclio RBC 5.00 106/ul Normal 4.70-6.10 [facility] Comment on above: Performed By: #### C BC ####[facility] Cbdjxsdthv0348 [place] [address]Dr. Garima Heraclio WBC 9.0 103/ul Normal 4.0-11.0 [facility] Comment on above: Performed By: #### C BC ####[facility] Njjfkbxmla6039 [place] [address]Dr. Garima Pulliam MAGNESIUMon 04-04-2023 Magnesium [Mass/Vol] 1.8 mg/dL Normal 1.8-2.4 [facility] Comment on above: Performed By: #### M G ####[facility] Qtlmykgynt6344 [place] [address]Dr. Chapisrenu Pulliam PROF 14(COMP METB)on 023 Albumin [Mass/Vol] 3.8 g/dL Normal 3.4-5.0 [facility] Comment on above: Performed By: #### C MP ####[facility] Mytzznkjzm7715 [place] [address]Dr. Garima Pulliam Albumin/Globulin [Mass ratio] 1.2 {ratio} Normal [facility] Comment on above: Performed By: #### C MP ####[facility] Dxgjtjacnh6294 [place] [address]Dr. Garima Heraclio ALP [Catalytic activity/Vol] 84 U/L Normal 46-116 [facility] Comment on above: Performed By: #### C MP ####[facility] Wmexwxbquw7925 [place] [id number]. Garima Pulliam ALT [Catalytic activity/Vol] 31 U/L Normal 16-63 [facility] Comment on above: Performed By: #### C MP ####[facility] Abbqhdpgym3732 [place] [address]Dr. Garima Pulliam Anion gap [Moles/Vol] 12.2 mmol/L Normal [facility] Comment on above: Performed By: #### C MP ####[facility] Kmcbyzstwh5677 [place] [address]Dr. Garima Pulliam AST [Catalytic activity/Vol] 23 U/L Normal 15-37 [facility] Comment on above: Performed By: #### C MP ####[facility] Utkxfkkajd911[address] [place], [place] [address]Dr. Garima Pulliam Bilirubin [Mass/Vol] 0.5 mg/dL Normal 0.2-1.0 [facility] Comment on above: Performed By: #### C MP ####[facility] Twtkxjusmf615[address] [place], [place] [address]Dr. Garima Pulliam Calcium [Mass/Vol] 9.2 mg/dL Normal 8.5-10.1 [facility] Comment on above: Performed By: #### C MP ####[facility] Ebkeaysnyt638[address] [place], [place] [address]Dr. Garima Pulliam Chloride [Moles/Vol] 103 mmol/L Normal 98-107 [facility] Comment on above: Performed By: #### C MP ####[facility] Ckotjovfei8938 [place] [address]Dr. Garima Pulliam CO2 [Moles/Vol] 28.5 mmol/L Normal 21.0-32.0 [facility] Comment on above: Performed By: #### C MP ####[facility] Yjgvdajuik[address] [place], [place] [address]Dr. Garima Pulliam Creatinine [Mass/Vol] 0.74 mg/dL Normal 0.70-1.30 [facility] Comment on above: Performed By: #### C MP ####[facility] Dwjtwmqwhs1753 [place] [id number]. Garima Pulliam EGFR-AF CITIZEN OF [place] >60 Normal >=60 [facility] Comment on above: Performed By: #### C MP ####[facility] Ioblsdcbou3827 [place] [address]Dr. Garima Heraclio EGFR-NON AF CITIZEN OF [place] >60 Normal >=60 [facility] Comment on above: Performed By: #### C MP ####[facility] Talgqzkkar1730 [place] [id number]. Garima Heraclio Globulin (S) [Mass/Vol] 3.1 g/dL Normal [facility] Comment on above: Performed By: #### C MP ####[facility] Iwmnqvmgqf644[address] [place], [place] [address]Dr. Garima Heraclio Glucose [Mass/Vol] 93 mg/dL Normal 74-106 [facility] Comment on above: Performed By: #### C MP ####[facility] Isidzinsih060[address] [place], [place] [address]Dr. Garima Heraclio Potassium [Moles/Vol] 3.7 mmol/L Normal 3.5-5.1 [facility] Comment on above: Performed By: #### C MP ####[facility] Hzghvkjswj226[address] [place], [place] [address]Dr. Garima Heraclio Protein [Mass/Vol] 6.9 g/dL Normal 6.4-8.2 [facility] Comment on above: Performed By: #### C MP ####[facility] Cbffkqybua210[address] [place], [place] [address]Dr. Garima Heraclio Sodium [Moles/Vol] 140 mmol/L Normal 136-145 [facility] Comment on above: Performed By: #### C MP ####[facility] Xbiqkkqtaw860[address] [place], [place] [address]Dr. Garima Pulliam Urea nitrogen [Mass/Vol] 8.0 mg/dL Normal 7.0-18.0 [facility] Comment on above: Performed By: #### C MP ####[facility] Zwaecalfww8[address] [place], [place] [address]Dr. Garima Pulliam Urea nitrogen/Creatinine [Mass ratio] 10.8 mg/mg Normal [facility] Comment on above: Performed By: #### C DAVID ####[facility] Jtuybvzbuf2862 [place] [address]Dr. Garima Pulliam AMMONIAon 03-30-2023 Ammonia (P) [Moles/Vol] 11 umol/L Normal 11-32 [facility] Comment on above: Performed By: #### A MM ####[facility] Ueiyhoichp606[address] [place], [place] [address]Dr. Garima Pulliam CARDIAC NASH ADMITon 023 CK [Catalytic activity/Vol] 232 U/L Normal 39-308 [facility] Comment on above: Performed By: #### C NANCY HERNANDEZ ####[facility] Gefrlsvsws81[address] [place] [address]Dr. Chapisrenu Pulliam CK.MB [Mass/Vol] 4.83 ng/mL Critically high <=3.60 [facility] Comment on above: Performed By: #### C NANCY HERNANDEZ ####[facility] Juzrugsfvf[address] [place], [place] [address]Dr. Garima Pulliam HSTROP 10.5 pg/mL Normal 4.0-76.1 [facility] Comment on above: Result Comment: CUT- OFF POINTS HAVE BEEN ESTABLISHED BASED ON THE FOURTH UNIVERSAL DEFINITIONS OF MYOCARDIALINFARCTION. THE UPPER REFERENCE LIMIT (URL) OF TROPONIN, DEFINED THE 99TH PERCENTILE OFcTnI DISTRIBUTION IN A REFERENCE POPULATION, HAS BEEN CONFIRMED THE DECISION THRESHOLDFOR WI DIAGNOSIS. Performed By: #### C NANCY HERNANDEZ ####[facility] Dmdkmrpxay40[address] [place], [place] [address]Dr. Garima Heraclio DORIS 79 ng/mL Normal 16-96 [facility] Comment on above: Performed By: #### C NANCY HERNANDEZ ####[facility] Psiqwoondr86[address] [place], [place] [address]Dr. Garima Heraclio CBC AUTO DIFFon 03-30-2023 BASO # 0.0 103/ul Normal 0.0-0.1 [facility] Comment on above: Performed By: #### C BC ####[facility] Gjzigyyujc8455 [place] [id number]. Garima Pulliam Basophils/100 WBC (Bld) 0.1 % Critically low 0.2-2.0 [facility] Comment on above: Performed By: #### C BC ####[facility] Cvquwriaxe7952 [place] [id number]. Garima Pulliam EO # 0.3 103/ul Normal 0.0-0.7 [facility] Comment on above: Performed By: #### C BC ####[facility] Ejocrtckxy[address] [place], [place] [id number]. Garima Pulliam Eosinophils/100 WBC (Bld) 3.3 % Normal 0.9-7.0 [facility] Comment on above: Performed By: #### C BC ####[facility] Xijxtrnrtt35[address] [place], [place] [id number]. Garima Pulliam Erythrocyte distribution width (RBC) [Ratio] 13.5 % Normal 11.0-15.0 [facility] Comment on above: Performed By: #### C BC ####[facility] Yormvmyska[address] [place], [place] [id number]. Garima Pulliam Hematocrit (Bld) [Volume fraction] 42.9 % Normal 42.0-54.0 [facility] Comment on above: Performed By: #### C BC ####[facility] Bptixyblqq[address] [place], [place] [id number]. Garima Pulliam Hemoglobin (Bld) [Mass/Vol] 13.9 g/dL Critically low 14.0-18.0 [facility] Comment on above: Performed By: #### C BC ####[facility] Ftenowwsax1556 [place] [id number]. Garima Pulliam IG # 0.01 10e3/ul Normal 0.00-0.03 [facility] Comment on above: Performed By: #### C BC ####[facility] Ortpochsfx[address] [place], [place] [id number]. Garima Pulliam IG % 0.1 % Normal 0.0-0.5 [facility] Comment on above: Performed By: #### C BC ####[facility] Tctnarezqg4768 [place] [id number]. Garima Pulliam LYMPH # 1.7 103/ul Normal 1.2-3.8 [facility] Comment on above: Performed By: #### C BC ####[facility] Attskolcrg5386 [place], [place] [address]Is. Garima Pulliam Lymphocytes/100 WBC (Bld) 22.8 % Normal 20.5-60.0 [facility] Comment on above: Performed By: #### C BC ####[facility] Ejbrpklesx7262 [place] [id number]. Garima Heraclio MANUAL DIFF REQ NO Normal [facility] Comment on above: Performed By: #### C BC ####[facility] Ivalmtgjkj6142 [place] [id number]. Garima Heraclio MCH (RBC) [Entitic mass] 30.5 pg Normal 25.9-34.0 [facility] Comment on above: Performed By: #### C BC ####[facility] Mumcrvfqhv4956 [place] [id number]. Garima Pulliam MCHC (RBC) [Mass/Vol] 32.4 g/dL Normal 29.9-35.2 [facility] Comment on above: Performed By: #### C BC ####[facility] Bxzvlxiwyc1241 [place] [id number]. Garima Heraclio MCV (RBC) [Entitic vol] 94.1 fL Critically high 80.0-94.0 [facility] Comment on above: Performed By: #### C BC ####[facility] Hqsuycygcy9211 [place] [id number]. Garima Heraclio MONO # 0.7 103/ul Normal 0.3-0.8 [facility] Comment on above: Performed By: #### C BC ####[facility] Ygcansecem1347 [place] [id number]. Garima Heraclio Monocytes/100 WBC (Bld) 8.6 % Normal 1.7-12.0 [facility] Comment on above: Performed By: #### C BC ####[facility] Rlywbxhyig0782 [place] [id number]. Garima Pulliam NEUT # 4.9 103/ul Normal 1.4-6.5 [facility] Comment on above: Performed By: #### C BC ####[facility] Tbvixdyzoo4037 [place] [id number]. Garima Pulliam Neutrophils/100 WBC (Bld) 65.1 % Normal 43.0-75.0 [facility] Comment on above: Performed By: #### C BC ####[facility] Yajzedatbj2458 [place] [id number]. Garima Pulliam Platelet mean volume (Bld) [Entitic vol] 8.5 fL Critically low 9.5-13.5 [facility] Comment on above: Performed By: #### C BC ####[facility] Xfakmndxhv7125 [place] [id number]. Garima Pulliam PLT 219 103/ul Normal 150-450 [facility] Comment on above: Performed By: #### C BC ####[facility] Tfdelpuder7763 [place] [id number]. Garima Pulliam RBC 4.56 106/ul Critically low 4.70-6.10 [facility] Comment on above: Performed By: #### C BC ####[facility] Igbwzixvzw8396 [place] [id number]. Garima Pulliam WBC 7.6 103/ul Normal 4.0-11.0 [facility] Comment on above: Performed By: #### C BC ####[facility] Roaxtnfkgy2566 [place] [id number]. Garima Pulliam LACTATE/LACTIC ACIDon 2022 Lactate [Moles/Vol] 1.2 mmol/L Normal 0.4-2.0 [facility] Comment on above: Performed By: #### L ACT ####[facility] Oydftktocc8749 [place] [id number]. Garima Pulliam MAGNESIUMon 03-30-2023 Magnesium [Mass/Vol] 1.8 mg/dL Normal 1.8-2.4 [facility] Comment on above: Performed By: #### M G ####[facility] Bmyqfdmhtx0564 [place] [address]Dr. Garima Pulliam PROF 14(COMP METB)on 023 Albumin [Mass/Vol] 3.5 g/dL Normal 3.4-5.0 [facility] Comment on above: Performed By: #### C DAVID, CMAANA ROSA ####[facility] Vpynwhsjrb7432 [place] [address]Dr. Garima Pulliam Albumin/Globulin [Mass ratio] 1.2 {ratio} Normal [facility] Comment on above: Performed By: #### C DAVID, CMAANA ROSA ####[facility] Dyfqqzxclm4238 [place] [address]Dr. Garima Pulliam ALP [Catalytic activity/Vol] 85 U/L Normal 46-116 [facility] Comment on above: Performed By: #### C DAVID, CMAANA ROSA ####[facility] Uaylmppbks[address] [place], [place] [address]Dr. Garima Pulliam ALT [Catalytic activity/Vol] 29 U/L Normal 16-63 [facility] Comment on above: Performed By: #### C DAVID, CMAANA ROSA ####[facility] Iyvmeevnef6036 [place] [address]Dr. Garima Pulliam Anion gap [Moles/Vol] 8.0 mmol/L Normal [facility] Comment on above: Performed By: #### C DAVID, CMAANA ROSA ####[facility] Zviytzkpbk9078 [place] [address]Dr. Garima Pulliam AST [Catalytic activity/Vol] 18 U/L Normal 15-37 [facility] Comment on above: Performed By: #### C DAVID, CMADM ####[facility] Hiqiybnodf0093 [place] [address]Dr. Garima Pulliam Bilirubin [Mass/Vol] 0.4 mg/dL Normal 0.2-1.0 [facility] Comment on above: Performed By: #### C DAVID, CMADM ####[facility] Wyimfstlix6349 [place] [address]Dr. Garima Pulliam Calcium [Mass/Vol] 8.8 mg/dL Normal 8.5-10.1 [facility] Comment on above: Performed By: #### C DAVID, NANCY ####[facility] Vgyihghwsm2495 [place] [address]Dr. Chapisrenu Pulliam Chloride [Moles/Vol] 108 mmol/L Critically high 98-107 [facility] Comment on above: Performed By: #### C DAVID, NANCY ####[facility] Fogddmxwge6968 [place] [address]Dr. Garima Pulliam CO2 [Moles/Vol] 29.6 mmol/L Normal 21.0-32.0 [facility] Comment on above: Performed By: #### C NANCY HERNANDEZ ####[facility] Pxqbyqggqn[address] [place], [place] [address]Dr. Garima Pulliam Creatinine [Mass/Vol] 0.77 mg/dL Normal 0.70-1.30 [facility] Comment on above: Performed By: #### C NANCY HERNANDEZ ####[facility] Nudoxymkaj239[address] [place], [place] [address]Dr. Garima Heraclio EGFR-AF CITIZEN OF [place] >60 Normal >=60 [facility] Comment on above: Performed By: #### C NANCY HERNANDEZ ####[facility] Jmcoxqtzzp[address] [place], [place] [address]Dr. Garima Heraclio EGFR-NON AF CITIZEN OF [place] >60 Normal >=60 [facility] Comment on above: Performed By: #### C NANCY HERNANDEZ ####[facility] Tyqooallhy2892 [place] [address]Dr. Garima Pulliam Globulin (S) [Mass/Vol] 2.8 g/dL Normal [facility] Comment on above: Performed By: #### C NANCY HERNANDEZ ####[facility] Tsiajacjic8625 [place] [address]Dr. Garima Pulliam Glucose [Mass/Vol] 207 mg/dL Critically high 74-106 [facility] Comment on above: Performed By: #### C NANCY HERNANDEZ ####[facility] Uuxxxspdjc48[address] [place], [place] [address]Dr. Garima Pulliam Potassium [Moles/Vol] 4.6 mmol/L Normal 3.5-5.1 [facility] Comment on above: Performed By: #### C DAVID, NANCY ####[facility] Trtxqewxhc1693 [place] [address]Dr. Garima Pulliam Protein [Mass/Vol] 6.3 g/dL Critically low 6.4-8.2 [facility] Comment on above: Performed By: #### C DAVID, NANCY ####[facility] Kijznjhuxb5053 [place] [address]Dr. Garima Pulliam Sodium [Moles/Vol] 141 mmol/L Normal 136-145 [facility] Comment on above: Performed By: #### C DAVID, NANCY ####[facility] Skmiajfzsw7592 [place] [address]Dr. Garima Pulliam Urea nitrogen [Mass/Vol] 9.0 mg/dL Normal 7.0-18.0 [facility] Comment on above: Performed By: #### C DAVID, NANCY ####[facility] Qbhnlyitrs6046 [place] [address]Dr. Garima Pulliam Urea nitrogen/Creatinine [Mass ratio] 11.7 mg/mg Normal [facility] Comment on above: Performed By: #### C DAVID, NANCY ####[facility] Xupgnfmzsb4546 [place] [address]Dr. Garima Pulliam XR CHEST 1 Von 03-30-2023 XR CHEST 1 V Normal [facility] BNPon 03-27-2023 Natriuretic peptide B (Bld) [Mass/Vol] 251.0 pg/mL Normal <=900.0 [facility] Comment on above: Performed By: #### C MP, BNP, LIPID ####[facility] Azjxmiioam6794 [place] [address]Dr. Garima Pulliam GLYCOHEMOGLOBIN A1Con 2022 ADA RECOMMENDATION SEE BELOW Normal [facility] Comment on above: Result Comment: ADA RECOMMENDED LIMIT 4.0 - 6.0 ADA THERAPEUTIC TARGET < 7.0 ACTION SUGGESTED > 7.0 Performed By: #### A 1C ####[facility] Frgkexyfwi1541 [place] [address]Dr. Garima Pulliam Glucose [Mass/Vol] 180 mg/dL Normal [facility] Comment on above: Performed By: #### A 1C ####[facility] Zbhmizhkjl[address] [place], [place] [address]Dr. Chapisrenu Pulliam HbA1c (Bld) [Mass fraction] 7.9 % Critically high 4.5-6.2 [facility] Comment on above: Performed By: #### A 1C ####[facility] Monkklevtl99[address] [place], [place] [address]Dr. Garima Pulliam HEMOGRAM AND PLATELon 2022 Hematocrit (Bld) [Volume fraction] 45.7 % Normal 42.0-54.0 [facility] Comment on above: Performed By: #### H H ####[facility] Dzxjnsyrzf[address] [place], [place] [address]Dr. Garima Pulliam Hemoglobin (Bld) [Mass/Vol] 15.1 g/dL Normal 14.0-18.0 [facility] Comment on above: Performed By: #### H H ####[facility] Dyoimebrdx[address] [place], [place] [address]Dr. Garima Pulliam MCH (RBC) [Entitic mass] 30.0 pg Normal 25.9-34.0 [facility] Comment on above: Performed By: #### H H ####[facility] Cfolxtrqvs618[address] [place], [place] [address]Dr. Garima Pulliam MCHC (RBC) [Mass/Vol] 33.0 g/dL Normal 29.9-35.2 [facility] Comment on above: Performed By: #### H H ####[facility] Mskriymcjp[address] [place], [place] [address]Dr. Garima Pulliam MCV (RBC) [Entitic vol] 90.7 fL Normal 80.0-94.0 [facility] Comment on above: Performed By: #### H H ####[facility] Ppaclduutw[address] [place], [place] [address]Dr. Garima Pulliam PLT 222 103/ul Normal 150-450 [facility] Comment on above: Performed By: #### H H ####[facility] Xcfbwhezna6953 [place] [id number]. Garima Pulliam RBC 5.04 106/ul Normal 4.70-6.10 [facility] Comment on above: Performed By: #### H H ####[facility] Mbjqhrpbrn1547 [place] [id number]. Garima Pulliam WBC 8.7 103/ul Normal 4.0-11.0 [facility] Comment on above: Performed By: #### H H ####[facility] Vcldnaurqt3062 [place] [id number]. Garima Pulliam LIPID PROFILEon 03-27-2023 CHOL-HDL RATIO NORM SEE BELOW Normal [facility] Comment on above: Result Comment: 3.3 - 4.4 LOW RISK 4.4 - 7.1 AVERAGE RISK 7.1 - 11.0 MODERATE RISK >11.0 HIGH RISK Performed By: #### C MP, BNP, LIPID ####[facility] Wmnznjgjdg[address] [place] [address]Dr. Garima Pulliam Cholesterol [Mass/Vol] 113 mg/dL Normal <=200 [facility] Comment on above: Performed By: #### C MP, BNP, LIPID ####[facility] Kkadkbqcwc[address] [place] [address]Dr. Garima Pulliam Cholesterol in HDL [Mass/Vol] 51 mg/dL Normal 40-60 [facility] Comment on above: Performed By: #### C MP, BNP, LIPID ####[facility] Szqvatndau15[address] [place] [address]Dr. Garima Pulliam Cholesterol in LDL [Mass/Vol] 49.8 mg/dL Normal [facility] Comment on above: Performed By: #### C MP, BNP, LIPID ####[facility] Ynqzxhxmcs1085 [place] [address]Dr. Garima Pulliam Cholesterol.total/Cho lesterol in HDL [Mass ratio] 2.2 {ratio} Normal [facility] Comment on above: Performed By: #### C MP, BNP, LIPID ####[facility] Qqgzsisqzs9548 [place] [address]Dr. Garima Pulliam HDL NORMAL > or = 60 mg/dl - LOW CARDIOVASCULAR RISK <40 mg/dl - HIGH CARDIOVASCULAR RISK Normal [facility] Comment on above: Performed By: #### C MP, BNP, LIPID ####[facility] Tfvnplpfzc0942 [place] [address]Dr. Garima Pulliam LDL CALC NORMAL SEE BELOW Normal [facility] Comment on above: Result Comment: <100 mg/dl OPTIMAL 100 - 129 mg/dl NEAR OR ABOVE OPTIMAL 130 - 159 mg/dl BORDERLINE HIGH 160 - 189 mg/dl HIGH >190 mg/dl VERY HIGH Performed By: #### C MP, BNP, LIPID ####[facility] Ejzazbhrbk9924 [place] [address]Dr. Garima Pulliam Triglyceride [Mass/Vol] 61 mg/dL Normal <=150 [facility] Comment on above: Performed By: #### C MP, BNP, LIPID ####[facility] Aftyuiqcku0291 [place] [address]Dr. Garima Pulliam VLDL CALC 12.2 mg/dL Normal [facility] Comment on above: Performed By: #### C MP, BNP, LIPID ####[facility] Zqpzdofbfa4890 [place] [address]Dr. Garima Pulliam PROF 14(COMP METB)on 023 Albumin [Mass/Vol] 3.5 g/dL Normal 3.4-5.0 [facility] Comment on above: Performed By: #### C MP, BNP, LIPID ####[facility] Ydkirvfoxx0851 [place] [address]Dr. Garima Pulliam Albumin/Globulin [Mass ratio] 1.2 {ratio} Normal [facility] Comment on above: Performed By: #### C MP, BNP, LIPID ####[facility] Rkhqeitpjn1561 [place] [address]Dr. Garima Pulliam ALP [Catalytic activity/Vol] 82 U/L Normal 46-116 [facility] Comment on above: Performed By: #### C MP, BNP, LIPID ####[facility] Aqgszsyjqx8690 [place] [address]Dr. Garima Pulliam ALT [Catalytic activity/Vol] 33 U/L Normal 16-63 [facility] Comment on above: Performed By: #### C MP, BNP, LIPID ####[facility] Dybwwzdaok0830 [place] [address]Dr. Garima Pulliam Anion gap [Moles/Vol] 9.9 mmol/L Normal [facility] Comment on above: Performed By: #### C MP, BNP, LIPID ####[facility] Getoxscitv8060 [place] [address]Dr. Garima Pulliam AST [Catalytic activity/Vol] 24 U/L Normal 15-37 [facility] Comment on above: Performed By: #### C MP, BNP, LIPID ####[facility] Lvkvcsqkls1771 [place] [address]Dr. Garima Pulliam Bilirubin [Mass/Vol] 0.6 mg/dL Normal 0.2-1.0 [facility] Comment on above: Performed By: #### C MP, BNP, LIPID ####[facility] Vhimwxbprl6172 [place] [address]Dr. Garima Pulliam Calcium [Mass/Vol] 9.2 mg/dL Normal 8.5-10.1 [facility] Comment on above: Performed By: #### C MP, BNP, LIPID ####[facility] Zuykusnrpk0903 [place] [address]Dr. Garima Pulliam Chloride [Moles/Vol] 106 mmol/L Normal 98-107 [facility] Comment on above: Performed By: #### C MP, BNP, LIPID ####[facility] Svialzuysi4508 [place] [address]Dr. Garima Pulliam CO2 [Moles/Vol] 32.3 mmol/L Critically high 21.0-32.0 [facility] Comment on above: Performed By: #### C MP, BNP, LIPID ####[facility] Mmcceokioo7384 [place] [address]Dr. Garima Pulliam Creatinine [Mass/Vol] 0.70 mg/dL Normal 0.70-1.30 [facility] Comment on above: Performed By: #### C MP, BNP, LIPID ####[facility] Vaytxtaxjq4226 [place] [id number]. Garima Pulliam EGFR-AF CITIZEN OF [place] >60 Normal >=60 [facility] Comment on above: Performed By: #### C MP, BNP, LIPID ####[facility] Zmhdzunrld4162 [place] [id number]. Garima Pulliam EGFR-NON AF CITIZEN OF [place] >60 Normal >=60 [facility] Comment on above: Performed By: #### C MP, BNP, LIPID ####[facility] Nwciumsfdn4927 [place] [address]Dr. Garima Pulliam Globulin (S) [Mass/Vol] 2.9 g/dL Normal [facility] Comment on above: Performed By: #### C MP, BNP, LIPID ####[facility] Nkeevqdhuq3276 [place] [address]Dr. Garima Pulliam Glucose [Mass/Vol] 111 mg/dL Critically high 74-106 [facility] Comment on above: Performed By: #### C MP, BNP, LIPID ####[facility] Jkkbpqxgmq6190 [place] [address]Dr. Garima Pulliam Potassium [Moles/Vol] 4.2 mmol/L Normal 3.5-5.1 [facility] Comment on above: Performed By: #### C MP, BNP, LIPID ####[facility] Blyatwikjl1573 [place] [address]Dr. Garima Pulliam Protein [Mass/Vol] 6.4 g/dL Normal 6.4-8.2 [facility] Comment on above: Performed By: #### C MP, BNP, LIPID ####[facility] Jgnmdefurr4308 [place] [address]Dr. Garima Pulliam Sodium [Moles/Vol] 144 mmol/L Normal 136-145 [facility] Comment on above: Performed By: #### C MP, BNP, LIPID ####[facility] Hqfridfkgs2737 [place] [address]Dr. Garima Pulliam Urea nitrogen [Mass/Vol] 7.0 mg/dL Normal 7.0-18.0 [facility] Comment on above: Performed By: #### C MP, BNP, LIPID ####[facility] Ishuypfmtd[address] [place], [place] [address]Dr. Garima Pulliam Urea nitrogen/Creatinine [Mass ratio] 10.0 mg/mg Normal [facility] Comment on above: Performed By: #### C MP, BNP, LIPID ####[facility] Apvnjxhaoj[address] [place], [place] [address]Dr. Garima Pulliam BNPon 03-22-2023 Natriuretic peptide B (Bld) [Mass/Vol] 103.0 pg/mL Normal <=900.0 [facility] Comment on above: Performed By: #### B NUDE MODEL, BMP ####[facility] Dxzhgcgmcx74[address] [place], [place] [address]Dr. Garima Pulliam CBC AUTO DIFFon 03-22-2023 BASO # 0.0 103/ul Normal 0.0-0.1 [facility] Comment on above: Performed By: #### C BC ####[facility] Nyymnqxytu464[address] [place], [place] [address]Dr. Garima Heraclio Basophils/100 WBC (Bld) 0.3 % Normal 0.2-2.0 [facility] Comment on above: Performed By: #### C BC ####[facility] Dwzvwibbsg[address] [place], [place] [address]Dr. Garima Pulliam EO # 0.2 103/ul Normal 0.0-0.7 [facility] Comment on above: Performed By: #### C BC ####[facility] Cqstmbkjgy814[address] [place], [place] [address]Dr. Garima Pulliam Eosinophils/100 WBC (Bld) 2.2 % Normal 0.9-7.0 [facility] Comment on above: Performed By: #### C BC ####[facility] Cwemfsclup[address] [place], [place] [address]Dr. Garima Pulliam Erythrocyte distribution width (RBC) [Ratio] 13.2 % Normal 11.0-15.0 [facility] Comment on above: Performed By: #### C BC ####[facility] Sythjcpiol8890 [place] [id number]. Garima Pulliam Hematocrit (Bld) [Volume fraction] 43.4 % Normal 42.0-54.0 [facility] Comment on above: Performed By: #### C BC ####[facility] Upuivyzgdk0525 [place] [address]Dr. Garima Heraclio Hemoglobin (Bld) [Mass/Vol] 14.3 g/dL Normal 14.0-18.0 [facility] Comment on above: Performed By: #### C BC ####[facility] Ohtzwikaty1168 [place] [address]Dr. Garima Pulliam IG # 0.02 10e3/ul Normal 0.00-0.03 [facility] Comment on above: Performed By: #### C BC ####[facility] Qhkcgbmixh5431 [place] [address]Dr. Garima Pulliam IG % 0.3 % Normal 0.0-0.5 [facility] Comment on above: Performed By: #### C BC ####[facility] Bzwvqljaye2615 [place] [address]Dr. Chapisrenu Pulliam LYMPH # 2.0 103/ul Normal 1.2-3.8 [facility] Comment on above: Performed By: #### C BC ####[facility] Euphoopwss3740 [place] [address]Dr. Chapisrenu Pulliam Lymphocytes/100 WBC (Bld) 24.8 % Normal 20.5-60.0 [facility] Comment on above: Performed By: #### C BC ####[facility] Xpicyafgnu3226 [place] [address]Dr. Chapisrenu Pulliam MANUAL DIFF REQ NO Normal [facility] Comment on above: Performed By: #### C BC ####[facility] Xdrqxgbzms3546 [place] [address]Dr. Garima Heraclio MCH (RBC) [Entitic mass] 30.0 pg Normal 25.9-34.0 [facility] Comment on above: Performed By: #### C BC ####[facility] Hhlnfsjedw[address] [place], [place] [address]Dr. Garima Pulliam MCHC (RBC) [Mass/Vol] 32.9 g/dL Normal 29.9-35.2 [facility] Comment on above: Performed By: #### C BC ####[facility] Tlzheaecqx2764 [place] [id number]. Garima Pulliam MCV (RBC) [Entitic vol] 91.0 fL Normal 80.0-94.0 [facility] Comment on above: Performed By: #### C BC ####[facility] Hezdqkgmmm8972 [place] [id number]. Garima Heraclio MONO # 0.8 103/ul Normal 0.3-0.8 [facility] Comment on above: Performed By: #### C BC ####[facility] Jfdzmtxpst5259 [place] [address]Dr. Chapisrenu Pulliam Monocytes/100 WBC (Bld) 9.7 % Normal 1.7-12.0 [facility] Comment on above: Performed By: #### C BC ####[facility] Hjldeytswo7579 [place] [address]Dr. Garima Pulliam NEUT # 4.9 103/ul Normal 1.4-6.5 [facility] Comment on above: Performed By: #### C BC ####[facility] Ylelcgjvdl5120 [place] [id number]. Garima Heraclio Neutrophils/100 WBC (Bld) 62.7 % Normal 43.0-75.0 [facility] Comment on above: Performed By: #### C BC ####[facility] Sqzklfztat6785 [place] [id number]. Garima Heraclio Platelet mean volume (Bld) [Entitic vol] 8.8 fL Critically low 9.5-13.5 [facility] Comment on above: Performed By: #### C BC ####[facility] Qdflxxhqrq3428 [place] [id number]. Garima Heraclio PLT 198 103/ul Normal 150-450 [facility] Comment on above: Performed By: #### C BC ####[facility] Igxhuyqcvo8157 [place] [id number]. Garima Heraclio RBC 4.77 106/ul Normal 4.70-6.10 [facility] Comment on above: Performed By: #### C BC ####[facility] Bwobhpdhel4017 [place] [id number]. Garima Heraclio WBC 7.9 103/ul Normal 4.0-11.0 [facility] Comment on above: Performed By: #### C BC ####[facility] Zfuuergbzu4774 [place] [id number]. Garima Heraclio D-DIMERon 03-22-2023 D-DIMER 0.85 mg/L FEU Critically high <=0.59 [facility] Comment on above: Performed By: #### D DIM ####[facility] Tkrtwojhmu0614 [place] [address]Dr. Garima Pulliam D-DIMER COMMENTS SEE BELOW Normal [facility] Comment on above: Result Comment: Incr [...] #### D DIM ####[facility] Vvaekcjlez[address] [place], [place] [address]Dr. Garima Pulliam PROF CHEM 8 (BAS METB)on Anion gap [Moles/Vol] 6.9 mmol/L Normal [facility] Comment on above: Performed By: #### B NUDE MODEL, BMP ####[facility] Vlwwrdthty3945 [place] [address]Dr. Garima Pulliam Calcium [Mass/Vol] 8.9 mg/dL Normal 8.5-10.1 [facility] Comment on above: Performed By: #### B NUDE MODEL, BMP ####[facility] Ztpxujuxia8926 [place] [address]Dr. Garima Pulliam Chloride [Moles/Vol] 101 mmol/L Normal 98-107 [facility] Comment on above: Performed By: #### B NUDE MODEL, BMP ####[facility] Ljckzxmsvq19[address] [place], [place] [address]Dr. Chapisrenu Heraclio CO2 [Moles/Vol] 30.7 mmol/L Normal 21.0-32.0 [facility] Comment on above: Performed By: #### B NUDE MODEL, BMP ####[facility] Ixfuqjibhj82[address] [place], [place] [address]Dr. Garima Pulliam Creatinine [Mass/Vol] 0.82 mg/dL Normal 0.70-1.30 [facility] Comment on above: Performed By: #### B NUDE MODEL, BMP ####[facility] Mrvfgdaasv917[address] [place], [place] [address]Dr. Garima Pulliam EGFR-AF CITIZEN OF [place] >60 Normal >=60 [facility] Comment on above: Performed By: #### B NUDE MODEL, BMP ####[facility] Gpupesylkv83[address] [place], [place] [address]Dr. Chapisrenu Heraclio EGFR-NON AF CITIZEN OF [place] >60 Normal >=60 [facility] Comment on above: Performed By: #### B NUDE MODEL, BMP ####[facility] Pckeqilafw[address] [place], [place] [address]Dr. Garima Pulliam Glucose [Mass/Vol] 339 mg/dL Critically high 74-106 [facility] Comment on above: Performed By: #### B NUDE MODEL, BMP ####[facility] Atqqsirgsa15[address] [place], [place] [address]Dr. Garima Pulliam Potassium [Moles/Vol] 3.6 mmol/L Normal 3.5-5.1 [facility] Comment on above: Performed By: #### B NUDE MODEL, BMP ####[facility] Hmswmrvjaw[address] [place], [place] [address]Dr. Garima Pulliam Sodium [Moles/Vol] 135 mmol/L Critically low 136-145 [facility] Comment on above: Performed By: #### B NUDE MODEL, BMP ####[facility] Swjkxtbyay27[address] [place], [place] [address]Dr. Garima Pulliam Urea nitrogen [Mass/Vol] 11.0 mg/dL Normal 7.0-18.0 [facility] Comment on above: Performed By: #### B NUDE MODEL, BMP ####[facility] Pznxupdxod06[address] [place], [place] [address]Dr. Garima Pulliam Urea nitrogen/Creatinine [Mass ratio] 13.4 mg/mg Normal [facility] Comment on above: Performed By: #### B NUDE MODEL, BMP ####[facility] Whenqgpehz470[address] [place], [place] [address]Dr. Garima Pulliam US VERONICA DOP LEG BILon 023 US VERONICA DOP LEG BENOIT Normal [facility] BNPon 03-18-2023 Natriuretic peptide B (Bld) [Mass/Vol] 226.0 pg/mL Normal <=900.0 [facility] Comment on above: Performed By: #### B NUDE MODEL, BMP ####[facility] Dfkkwkexfk320[address] [place], [place] [address]Dr. Garima Pulliam CBC AUTO DIFFon 03-18-2023 BASO # 0.0 103/ul Normal 0.0-0.1 [facility] Comment on above: Performed By: #### C BC ####[facility] Rgqytrlwyz[address] [place], [place] [address]Dr. Garima Heraclio Basophils/100 WBC (Bld) 0.2 % Normal 0.2-2.0 [facility] Comment on above: Performed By: #### C BC ####[facility] Pyaznbgcag175[address] [place], [place] [address]Dr. Garima Pulliam EO # 0.3 103/ul Normal 0.0-0.7 [facility] Comment on above: Performed By: #### C BC ####[facility] Zmpqhblsgk397[address] [place], [place] [address]Dr. Garima Heraclio Eosinophils/100 WBC (Bld) 2.5 % Normal 0.9-7.0 [facility] Comment on above: Performed By: #### C BC ####[facility] Ropejsnnpb224[address] [place], [place] [address]Dr. Garima Heraclio Erythrocyte distribution width (RBC) [Ratio] 13.2 % Normal 11.0-15.0 [facility] Comment on above: Performed By: #### C BC ####[facility] Iussyyjbvc4912 [place] [address]DrAdalberto Pulliam Hematocrit (Bld) [Volume fraction] 45.8 % Normal 42.0-54.0 [facility] Comment on above: Performed By: #### C BC ####[facility] Kmvlotkveq6094 [place] [address]DrAdalberto Pulliam Hemoglobin (Bld) [Mass/Vol] 15.3 g/dL Normal 14.0-18.0 [facility] Comment on above: Performed By: #### C BC ####[facility] Dosnbjflsc40[address] [place], [place] [address]DrAdalberto Pulliam IG # 0.02 10e3/ul Normal 0.00-0.03 [facility] Comment on above: Performed By: #### C BC ####[facility] Imzpfryspj08[address] [place], [place] [address]DrAdalberto Pulliam IG % 0.2 % Normal 0.0-0.5 [facility] Comment on above: Performed By: #### C BC ####[facility] Yyyqabkolk[address] [place], [place] [address]DrAdalberto Pulliam LYMPH # 1.8 103/ul Normal 1.2-3.8 [facility] Comment on above: Performed By: #### C BC ####[facility] Hrydwshcpj185[address] [place], [place] [address]DrAdalberto Pulliam Lymphocytes/100 WBC (Bld) 18.3 % Critically low 20.5-60.0 [facility] Comment on above: Performed By: #### C BC ####[facility] Brkptcbvhn[address] [place], [place] [address]DrAdalberto Pulliam MANUAL DIFF REQ NO Normal [facility] Comment on above: Performed By: #### C BC ####[facility] Xpftuxjovj2991 [place] [address]DrAdalberto Pulliam MCH (RBC) [Entitic mass] 30.5 pg Normal 25.9-34.0 [facility] Comment on above: Performed By: #### C BC ####[facility] Enxsxzobrc6021 [place] [address]DrAdalberto Pulliam MCHC (RBC) [Mass/Vol] 33.4 g/dL Normal 29.9-35.2 [facility] Comment on above: Performed By: #### C BC ####[facility] Lpyksquufw7943 [place] [address]DrAdalberto Pulliam MCV (RBC) [Entitic vol] 91.2 fL Normal 80.0-94.0 [facility] Comment on above: Performed By: #### C BC ####[facility] Dagfihcxqk178[address] [place], [place] [address]DrAdalberto Pulliam MONO # 0.8 103/ul Normal 0.3-0.8 [facility] Comment on above: Performed By: #### C BC ####[facility] Dtdjlpaxqy06[address] [place], [place] [address]DrAdalberto Pulliam Monocytes/100 WBC (Bld) 7.6 % Normal 1.7-12.0 [facility] Comment on above: Performed By: #### C BC ####[facility] Nszuuhjlfx[address] [place], [place] [address]DrAdalberto Pulliam NEUT # 7.0 103/ul Critically high 1.4-6.5 [facility] Comment on above: Performed By: #### C BC ####[facility] Vjvnysiorq427[address] [place], [place] [address]DrAdalberto Pulliam Neutrophils/100 WBC (Bld) 71.2 % Normal 43.0-75.0 [facility] Comment on above: Performed By: #### C BC ####[facility] Fmqzigiued[address] [place], [place] [address]DrAdalberto Pulliam Platelet mean volume (Bld) [Entitic vol] 8.9 fL Critically low 9.5-13.5 [facility] Comment on above: Performed By: #### C BC ####[facility] Jgnrjwqpwc[address] [place], [place] [address]DrAdalberto Pulliam PLT 217 103/ul Normal 150-450 [facility] Comment on above: Performed By: #### C BC ####[facility] Idghtxnkog4462 [place] [address]Dr. Garima Heraclio RBC 5.02 106/ul Normal 4.70-6.10 [facility] Comment on above: Performed By: #### C BC ####[facility] Pfcybhjhfl213[address] [place], [place] [address]Dr. Garima Pulliam WBC 9.8 103/ul Normal 4.0-11.0 [facility] Comment on above: Performed By: #### C BC ####[facility] Wqqrhgvpkx97[address] [place], [place] [address]Dr. Garima Heraclio CRPon 03-18-2023 CRP 0.1 mg/dL Normal <=1.0 [facility] Comment on above: Performed By: #### C RP ####[facility] Rlwrnvxfnk34[address] [place], [place] [address]Dr. Garima Heraclio PROF CHEM 8 (BAS METB)on Anion gap [Moles/Vol] 10.4 mmol/L Normal [facility] Comment on above: Performed By: #### B NUDE MODEL, BMP ####[facility] Dfybjxrtvi7[address] [place], [place] [address]Dr. Garima Heraclio Calcium [Mass/Vol] 8.8 mg/dL Normal 8.5-10.1 [facility] Comment on above: Performed By: #### B NUDE MODEL, BMP ####[facility] Wqsxcwpzmf[address] [place], [place] [address]Dr. Garima Heraclio Chloride [Moles/Vol] 97 mmol/L Critically low 98-107 [facility] Comment on above: Performed By: #### B NUDE MODEL, BMP ####[facility] Yrtwjyknqg[address] [place], [place] [address]Dr. Garima Pulliam CO2 [Moles/Vol] 31.2 mmol/L Normal 21.0-32.0 [facility] Comment on above: Performed By: #### B NUDE MODEL, BMP ####[facility] Idpkjfmidz087[address] [place], [place] [address]Dr. Garima Pulliam Creatinine [Mass/Vol] 0.91 mg/dL Normal 0.70-1.30 [facility] Comment on above: Performed By: #### B NUDE MODEL, BMP ####[facility] Tantcnwnmm2918 [place] [address]Dr. Garima Pulliam EGFR-AF CITIZEN OF [place] >60 Normal >=60 [facility] Comment on above: Performed By: #### B NUDE MODEL, BMP ####[facility] Fhdaucdirp9061 [place] [id number]. Garima Pulliam EGFR-NON AF CITIZEN OF [place] >60 Normal >=60 [facility] Comment on above: Performed By: #### B NUDE MODEL, BMP ####[facility] Dmedfcjmug[address] [place] [address]Dr. Garima Pulliam Glucose [Mass/Vol] 315 mg/dL Critically high 74-106 T [facility] Comment on above: Performed By: #### B NUDE MODEL, BMP ####[facility] Ogzdtkjwwb38[address] [place] [address]Dr. Garima Pulliam Potassium [Moles/Vol] 3.6 mmol/L Normal 3.5-5.1 [facility] Comment on above: Performed By: #### B NUDE MODEL, BMP ####[facility] Qjqbsrxvju8787 [place] [address]Dr. Garima Pulliam Sodium [Moles/Vol] 135 mmol/L Critically low 136-145 Th [facility] Comment on above: Performed By: #### B NUDE MODEL, BMP ####[facility] Lrbrufhako[address] [place] [address]Dr. Garima Pulliam Urea nitrogen [Mass/Vol] 7.0 mg/dL Normal 7.0-18.0 [facility] Comment on above: Performed By: #### B NUDE MODEL, BMP ####[facility] Aiepvhwzyb94[address] [place] [address]Dr. Garima Pulliam Urea nitrogen/Creatinine [Mass ratio] 7.7 mg/mg Normal [facility] Comment on above: Performed By: #### B NUDE MODEL, BMP ####[facility] Duqbwgtkhp8[address] [place] [address]Dr. Garima Pulliam SED RATE WESTERGRENon 2022 SED RATE 8 mm/hr Normal <=20 [facility] Comment on above: Performed By: #### S EDR ####[facility] Rhpktymgvx[address] [place], [place] [address]Dr. Garima Pulliam BNPon 03-16-2023 Natriuretic peptide B (Bld) [Mass/Vol] 241.0 pg/mL Normal <=900.0 [facility] Comment on above: Performed By: #### B NUDE MODEL, BMP, HSTROPN ####[facility] Ovgmajivxp[address] [place], [place] [address]Dr. Garima Heraclio CBC AUTO DIFFon 03-16-2023 BASO # 0.0 103/ul Normal 0.0-0.1 [facility] Comment on above: Performed By: #### C BC ####[facility] Bxlxwgeukg[address] [place], [place] [address]Dr. Chapisrenu Pulliam Basophils/100 WBC (Bld) 0.2 % Normal 0.2-2.0 [facility] Comment on above: Performed By: #### C BC ####[facility] Kxfbyttjhd[address] [place], [place] [address]Dr. Garima Pulliam EO # 0.2 103/ul Normal 0.0-0.7 [facility] Comment on above: Performed By: #### C BC ####[facility] Iarazhqzcl70[address] [place], [place] [address]Dr. Chapisrenu Pulliam Eosinophils/100 WBC (Bld) 2.7 % Normal 0.9-7.0 [facility] Comment on above: Performed By: #### C BC ####[facility] Lfwfljawlb729[address] [place], [place] [address]Dr. Garima Pulliam Erythrocyte distribution width (RBC) [Ratio] 13.1 % Normal 11.0-15.0 [facility] Comment on above: Performed By: #### C BC ####[facility] Bnbkicxafy[address] [place], [place] [address]Dr. Garima Pulliam Hematocrit (Bld) [Volume fraction] 41.8 % Critically low 42.0-54.0 [facility] Comment on above: Performed By: #### C BC ####[facility] Hhtsibqdpi9[address] [place] [address]Dr. Garima Pulliam Hemoglobin (Bld) [Mass/Vol] 14.0 g/dL Normal 14.0-18.0 [facility] Comment on above: Performed By: #### C BC ####[facility] Hwwewxljvd3383 [place] [address]Dr. Garima Pulliam IG # 0.03 10e3/ul Normal 0.00-0.03 [facility] Comment on above: Performed By: #### C BC ####[facility] Dppftmeenw2446 [place] [address]Dr. Garima Pulliam IG % 0.3 % Normal 0.0-0.5 [facility] Comment on above: Performed By: #### C BC ####[facility] Auvwaapwug95[address] [place], [place] [address]Dr. Chapisrenu Pulliam LYMPH # 2.1 103/ul Normal 1.2-3.8 [facility] Comment on above: Performed By: #### C BC ####[facility] Mvakgxnmsp9[address] [place], [place] [address]Dr. Chapisrenu Pulliam Lymphocytes/100 WBC (Bld) 24.2 % Normal 20.5-60.0 [facility] Comment on above: Performed By: #### C BC ####[facility] Fnxqzmeqyb4034 [place] [address]Dr. Garima Pulliam MANUAL DIFF REQ NO Normal [facility] Comment on above: Performed By: #### C BC ####[facility] Vsnlbbrlas8894 [place] [address]Dr. Garima Pulliam MCH (RBC) [Entitic mass] 30.2 pg Normal 25.9-34.0 [facility] Comment on above: Performed By: #### C BC ####[facility] Fyeaxgqxhe4193 [place] [address]Dr. Garima Pulliam MCHC (RBC) [Mass/Vol] 33.5 g/dL Normal 29.9-35.2 [facility] Comment on above: Performed By: #### C BC ####[facility] Bbrffivegr3593 [place] [id number]. Garima Pulliam MCV (RBC) [Entitic vol] 90.1 fL Normal 80.0-94.0 [facility] Comment on above: Performed By: #### C BC ####[facility] Wouhfnjkmt80[address] [place] [id number]. Garima Pulliam MONO # 0.6 103/ul Normal 0.3-0.8 [facility] Comment on above: Performed By: #### C BC ####[facility] Oquthripxp4971 [place] [address]Dr. Garima Heraclio Monocytes/100 WBC (Bld) 7.4 % Normal 1.7-12.0 [facility] Comment on above: Performed By: #### C BC ####[facility] Cjzolgbgjx45[address] [place], [place] [address]Dr. Garima Pulliam NEUT # 5.6 103/ul Normal 1.4-6.5 [facility] Comment on above: Performed By: #### C BC ####[facility] Ixmesgstmt212[address] [place], [place] [address]Dr. Garima Heraclio Neutrophils/100 WBC (Bld) 65.2 % Normal 43.0-75.0 [facility] Comment on above: Performed By: #### C BC ####[facility] Blcodaimar1701 [place] [id number]. Garima Heraclio Platelet mean volume (Bld) [Entitic vol] 8.7 fL Critically low 9.5-13.5 [facility] Comment on above: Performed By: #### C BC ####[facility] Qhxriyskzu[address] [place], [place] [id number]. Garima Heraclio PLT 195 103/ul Normal 150-450 [facility] Comment on above: Performed By: #### C BC ####[facility] Lzrvpsdafc8708 [place] [id number]. Garima Pulliam RBC 4.64 106/ul Critically low 4.70-6.10 [facility] Comment on above: Performed By: #### C BC ####[facility] Gergifbmdm8987 [place] [address]Dr. Garima Pulliam WBC 8.6 103/ul Normal 4.0-11.0 [facility] Comment on above: Performed By: #### C BC ####[facility] Uxpozjvijj8278 [place] [address]Dr. Garima Pulliam PROF CHEM 8 (BAS METB)on Anion gap [Moles/Vol] 6.7 mmol/L Normal [facility] Comment on above: Performed By: #### B NUDE MODEL, BMP, HSTROPN ####[facility] Dclisqzbaq2460 [place] [address]Dr. Garima Pulliam Calcium [Mass/Vol] 8.8 mg/dL Normal 8.5-10.1 [facility] Comment on above: Performed By: #### B NUDE MODEL, BMP, HSTROPN ####[facility] Kmhpakeowi[address] [place], [place] [address]Dr. Garima Pulliam Chloride [Moles/Vol] 106 mmol/L Normal 98-107 [facility] Comment on above: Performed By: #### B NUDE MODEL, BMP, HSTROPN ####[facility] Pxphhqcngh[address] [place], [place] [address]Dr. Garima Pulliam CO2 [Moles/Vol] 31.4 mmol/L Normal 21.0-32.0 [facility] Comment on above: Performed By: #### B NUDE MODEL, BMP, HSTROPN ####[facility] Megeztdake[address] [place], [place] [address]Dr. Garima Pulliam Creatinine [Mass/Vol] 0.75 mg/dL Normal 0.70-1.30 [facility] Comment on above: Performed By: #### B NUDE MODEL, BMP, HSTROPN ####[facility] Owtnncjdvc7154 [place] [address]Dr. Garima Pulliam EGFR-AF CITIZEN OF [place] >60 Normal >=60 [facility] Comment on above: Performed By: #### B NUDE MODEL, BMP, HSTROPN ####[facility] Gmrmcltwqz01[address] [place] [address]Dr. Garima Pulliam EGFR-NON AF CITIZEN OF [place] >60 Normal >=60 [facility] Comment on above: Performed By: #### B NUDE MODEL, BMP, HSTROPN ####[facility] Fcxwbvcumr4607 [place] [address]Dr. Garima Pulliam Glucose [Mass/Vol] 161 mg/dL Critically high 74-106 T [facility] Comment on above: Performed By: #### B NUDE MODEL, BMP, HSTROPN ####[facility] Sspvevetvs9102 [place] [address]Dr. Garima Pulliam Potassium [Moles/Vol] 4.1 mmol/L Normal 3.5-5.1 [facility] Comment on above: Performed By: #### B NUDE MODEL, BMP, HSTROPN ####[facility] Ouiwseexee36[address] [place] [address]Dr. Garima Pulliam Sodium [Moles/Vol] 140 mmol/L Normal 136-145 [facility] Comment on above: Performed By: #### B NUDE MODEL, BMP, HSTROPN ####[facility] Fzcztplfwr7493 [place] [address]Dr. Garima Pulliam Urea nitrogen [Mass/Vol] 7.0 mg/dL Normal 7.0-18.0 [facility] Comment on above: Performed By: #### B NUDE MODEL, BMP, HSTROPN ####[facility] Oyensnjohu3244 [place] [address]Dr. Garima Pulliam Urea nitrogen/Creatinine [Mass ratio] 9.3 mg/mg Normal [facility] Comment on above: Performed By: #### B NUDE MODEL, BMP, HSTROPN ####[facility] Xucuanmxbr0[address] [place] [address]Dr. Garima Pulliam TROPONIN, HIGH SENSITIVITYon 03-16-2023 HSTROP 9.7 pg/mL Normal 4.0-76.1 [facility] Comment on above: Result Comment: CUT- OFF POINTS HAVE BEEN ESTABLISHED BASED ON THE FOURTH UNIVERSAL DEFINITIONS OF MYOCARDIALINFARCTION. THE UPPER REFERENCE LIMIT (URL) OF TROPONIN, DEFINED THE 99TH PERCENTILE OFcTnI DISTRIBUTION IN A REFERENCE POPULATION, HAS BEEN CONFIRMED THE DECISION THRESHOLDFOR WI DIAGNOSIS. Performed By: #### B NUDE MODEL, BMP, HSTROPN ####[facility] Bykgpnujbo23[address] [place] [address]Dr. Garima Pulliam XR CHEST 1 Von 03-16-2023 XR CHEST 1 V Normal [facility] BNPon 03-06-2023 Natriuretic peptide B (Bld) [Mass/Vol] 111.0 pg/mL Normal <=900.0 [facility] Comment on above: Performed By: #### C MP, BNP, CK ####[facility] Xyktoaoniw7241 [place] [address]Dr. Chapisrenu Pulliam CBC AUTO DIFFon 03-06-2023 BASO # 0.0 103/ul Normal 0.0-0.1 [facility] Comment on above: Performed By: #### C BC ####[facility] Jhqstexnpe[address] [place], [place] [address]Dr. Garima Pulliam Basophils/100 WBC (Bld) 0.2 % Normal 0.2-2.0 [facility] Comment on above: Performed By: #### C BC ####[facility] Mbijzwqrwo[address] [place], [place] [address]Dr. Garima Pulliam EO # 0.3 103/ul Normal 0.0-0.7 [facility] Comment on above: Performed By: #### C BC ####[facility] Ajqgjqlipv7[address] [place], [place] [address]Dr. Garima Pulliam Eosinophils/100 WBC (Bld) 3.5 % Normal 0.9-7.0 [facility] Comment on above: Performed By: #### C BC ####[facility] Fifuezpwpp288[address] [place], [place] [address]Dr. Garima Pulliam Erythrocyte distribution width (RBC) [Ratio] 13.3 % Normal 11.0-15.0 [facility] Comment on above: Performed By: #### C BC ####[facility] Ptljxkbozj[address] [place], [place] [address]Dr. Garima Pulliam Hematocrit (Bld) [Volume fraction] 43.7 % Normal 42.0-54.0 [facility] Comment on above: Performed By: #### C BC ####[facility] Xfhljuqrbg0408 [place] [address]Dr. Garima Pulliam Hemoglobin (Bld) [Mass/Vol] 14.7 g/dL Normal 14.0-18.0 [facility] Comment on above: Performed By: #### C BC ####[facility] Jutxoxppwv3959 [place] [address]Dr. Chapisrenu Heraclio IG # 0.03 10e3/ul Normal 0.00-0.03 [facility] Comment on above: Performed By: #### C BC ####[facility] Elufthqogs[address] [place], [place] [address]Dr. Garima Pulliam IG % 0.4 % Normal 0.0-0.5 [facility] Comment on above: Performed By: #### C BC ####[facility] Vpjapaslux[address] [place], [place] [address]Dr. Garima Pulliam LYMPH # 2.0 103/ul Normal 1.2-3.8 [facility] Comment on above: Performed By: #### C BC ####[facility] Yzpcfdmrjq022[address] [place], [place] [address]DrAdalberto Pulliam Lymphocytes/100 WBC (Bld) 23.7 % Normal 20.5-60.0 [facility] Comment on above: Performed By: #### C BC ####[facility] Taogptbuzc7667 [place] [address]Dr. Garima Pulliam MANUAL DIFF REQ NO Normal [facility] Comment on above: Performed By: #### C BC ####[facility] Umwhpwkfcu7744 [place] [id number] Pulliam MCH (RBC) [Entitic mass] 30.1 pg Normal 25.9-34.0 [facility] Comment on above: Performed By: #### C BC ####[facility] Nhrvodaqqu2970 [place] [id number]. Garima Pulliam MCHC (RBC) [Mass/Vol] 33.6 g/dL Normal 29.9-35.2 [facility] Comment on above: Performed By: #### C BC ####[facility] Ncrywwxwcw8883 [place] [address]Dr. Garima Heraclio MCV (RBC) [Entitic vol] 89.4 fL Normal 80.0-94.0 [facility] Comment on above: Performed By: #### C BC ####[facility] Yrlyfkadmc4426 [place] [address]Dr. Garima Pulliam MONO # 0.8 103/ul Normal 0.3-0.8 [facility] Comment on above: Performed By: #### C BC ####[facility] Eybrfwoeih2480 [place] [address]Dr. Garima Pulliam Monocytes/100 WBC (Bld) 9.0 % Normal 1.7-12.0 [facility] Comment on above: Performed By: #### C BC ####[facility] Mnpqiaoqvi[address] [place], [place] [address]Dr. Garima Pulliam NEUT # 5.4 103/ul Normal 1.4-6.5 [facility] Comment on above: Performed By: #### C BC ####[facility] Vogecfhxbz24[address] [place], [place] [address]Dr. Garima Pulliam Neutrophils/100 WBC (Bld) 63.2 % Normal 43.0-75.0 [facility] Comment on above: Performed By: #### C BC ####[facility] Uxjoxidghz[address] [place], [place] [address]Dr. Garima Pulliam Platelet mean volume (Bld) [Entitic vol] 9.0 fL Critically low 9.5-13.5 [facility] Comment on above: Performed By: #### C BC ####[facility] Tofkuxhhky[address] [place], [place] [address]Dr. Garima Pulliam PLT 218 103/ul Normal 150-450 [facility] Comment on above: Performed By: #### C BC ####[facility] Pbjhfbxytt6978 [place] [id number]. Garima Pulliam RBC 4.89 106/ul Normal 4.70-6.10 [facility] Comment on above: Performed By: #### C BC ####[facility] Ayvqvmqnve4889 [place] [address]Dr. Garima Pulliam WBC 8.5 103/ul Normal 4.0-11.0 [facility] Comment on above: Performed By: #### C BC ####[facility] Aoxsleckow5452 [place] [address]Dr. Garima Pulliam CPKon 03-06-2023 CK [Catalytic activity/Vol] 191 U/L Normal 39-308 [facility] Comment on above: Performed By: #### C MP, BNP, CK ####[facility] Kxfpmvbmqv3222 [place] [address]Dr. Garima Pulliam PROF 14(COMP METB)on 023 Albumin [Mass/Vol] 3.6 g/dL Normal 3.4-5.0 [facility] Comment on above: Performed By: #### C MP, BNP, CK ####[facility] Nhzdyzqsqm0113 [place] [address]Dr. Garima Pulliam Albumin/Globulin [Mass ratio] 1.2 {ratio} Normal [facility] Comment on above: Performed By: #### C MP, BNP, CK ####[facility] Yqjjxwwbyp8509 [place] [address]Dr. Garima Pulliam ALP [Catalytic activity/Vol] 91 U/L Normal 46-116 [facility] Comment on above: Performed By: #### C MP, BNP, CK ####[facility] Vpbeqioipb2489 [place] [address]Dr. Garima Pulliam ALT [Catalytic activity/Vol] 33 U/L Normal 16-63 [facility] Comment on above: Performed By: #### C MP, BNP, CK ####[facility] Fbumusvytj2722 [place] [address]Dr. Garima Pulliam Anion gap [Moles/Vol] 10.3 mmol/L Normal [facility] Comment on above: Performed By: #### C MP, BNP, CK ####[facility] Gynivdnnil9211 [place] [address]Dr. Garima Pulliam AST [Catalytic activity/Vol] 17 U/L Normal 15-37 [facility] Comment on above: Performed By: #### C MP, BNP, CK ####[facility] Fgbixsnlpj3669 [place] [address]Dr. Garima Pulliam Bilirubin [Mass/Vol] 0.4 mg/dL Normal 0.2-1.0 [facility] Comment on above: Performed By: #### C MP, BNP, CK ####[facility] Ppcfqgoojk3743 [place] [address]Dr. Garima Pulliam Calcium [Mass/Vol] 9.1 mg/dL Normal 8.5-10.1 [facility] Comment on above: Performed By: #### C MP, BNP, CK ####[facility] Wkcqlianio6203 [place] [address]Dr. Garima Pulliam Chloride [Moles/Vol] 102 mmol/L Normal 98-107 [facility] Comment on above: Performed By: #### C MP, BNP, CK ####[facility] Jlfcjewqwz9646 [place] [address]Dr. Garima Pulliam CO2 [Moles/Vol] 29.7 mmol/L Normal 21.0-32.0 [facility] Comment on above: Performed By: #### C MP, BNP, CK ####[facility] Ngwjaxcgcv4033 [place] [address]Dr. Garima Pulliam Creatinine [Mass/Vol] 0.79 mg/dL Normal 0.70-1.30 [facility] Comment on above: Performed By: #### C MP, BNP, CK ####[facility] Fmzapfdhms0395 [place] [address]Dr. Garima Pulliam EGFR-AF CITIZEN OF [place] >60 Normal >=60 [facility] Comment on above: Performed By: #### C MP, BNP, CK ####[facility] Lbapuemttj9027 [place] [address]Dr. Garima Pulliam EGFR-NON AF CITIZEN OF [place] >60 Normal >=60 [facility] Comment on above: Performed By: #### C MP, BNP, CK ####[facility] Jatdjwmjsr2392 [place] [address]Dr. Garima Pulliam Globulin (S) [Mass/Vol] 3.0 g/dL Normal [facility] Comment on above: Performed By: #### C MP, BNP, CK ####[facility] Blqjjnsjrr2206 [place] [address]Dr. Garima Pulliam Glucose [Mass/Vol] 202 mg/dL Critically high 74-106 [facility] Comment on above: Performed By: #### C MP, BNP, CK ####[facility] Sockfdncsj5769 [place] [address]Dr. Garima Pulliam Potassium [Moles/Vol] 4.0 mmol/L Normal 3.5-5.1 [facility] Comment on above: Performed By: #### C MP, BNP, CK ####[facility] Xxzzncszqq2608 [place] [address]Dr. Garima Pulliam Protein [Mass/Vol] 6.6 g/dL Normal 6.4-8.2 [facility] Comment on above: Performed By: #### C MP, BNP, CK ####[facility] Kwxtnocecm039[address] [place], [place] [address]Dr. Garima Pulliam Sodium [Moles/Vol] 138 mmol/L Normal 136-145 [facility] Comment on above: Performed By: #### C MP, BNP, CK ####[facility] Ykrsijjhez86[address] [place], [place] [address]Dr. Garima Pulliam Urea nitrogen [Mass/Vol] 10.0 mg/dL Normal 7.0-18.0 [facility] Comment on above: Performed By: #### C MP, BNP, CK ####[facility] Tjvnexuzra4123 [place] [address]Dr. Garima Pulliam Urea nitrogen/Creatinine [Mass ratio] 12.7 mg/mg Normal [facility] Comment on above: Performed By: #### C MP, BNP, CK ####[facility] Ufyloepsuh3633 [place] [address]Dr. Garima Pulliam US VERONICA DOP LEG BILon 023 US VERONICA DOP LEG BENOIT Normal [facility] CBC AUTO DIFFon 01-13-2023 BASO # 0.0 103/ul Normal 0.0-0.1 [facility] Comment on above: Performed By: #### C BC ####[facility] Midbillufp0701 [place] [id number]. Chapisrenu Pulliam Basophils/100 WBC (Bld) 0.0 % Critically low 0.2-2.0 [facility] Comment on above: Performed By: #### C BC ####[facility] Hlqhjsaqlw7082 [place] [address]Dr. Garima Pulliam EO # 0.0 103/ul Normal 0.0-0.7 [facility] Comment on above: Performed By: #### C BC ####[facility] [address]tvydafqei26[address] [place], [place] [address]Dr. Garima Pulliam Eosinophils/100 WBC (Bld) 0.0 % Critically low 0.9-7.0 [facility] Comment on above: Performed By: #### C BC ####[facility] Rrdtguriij4727 [place] [address]Dr. Garima Pulliam Erythrocyte distribution width (RBC) [Ratio] 13.2 % Normal 11.0-15.0 [facility] Comment on above: Performed By: #### C BC ####[facility] S[address]apkhynd[address] [place], [place] [address]Dr. Garima Pulliam Hematocrit (Bld) [Volume fraction] 46.7 % Normal 42.0-54.0 [facility] Comment on above: Performed By: #### C BC ####[facility] Jkyijwrhbh[address] [place], [place] [address]Dr. Garima Pulliam Hemoglobin (Bld) [Mass/Vol] 15.6 g/dL Normal 14.0-18.0 [facility] Comment on above: Performed By: #### C BC ####[facility] Fikgbiqgdf[address] [place], [place] [address]Dr. Garima Pulliam IG # 0.01 10e3/ul Normal 0.00-0.03 [facility] Comment on above: Performed By: #### C BC ####[facility] Ojvphdfipx6100 [place] [id number]. Garima Pulliam IG % 0.2 % Normal 0.0-0.5 [facility] Comment on above: Performed By: #### C BC ####[facility] Sueuaniekz4694 [place] [id number]. Garima Pulliam LYMPH # 0.8 103/ul Critically low 1.2-3.8 [facility] Comment on above: Performed By: #### C BC ####[facility] Tdmxswrjjr4436 [place] [id number]. Garima Pulliam Lymphocytes/100 WBC (Bld) 12.7 % Critically low 20.5-60.0 [facility] Comment on above: Performed By: #### C BC ####[facility] Padpbinamh6068 [place] [address]Dr. Garima Pulliam MANUAL DIFF REQ NO Normal [facility] Comment on above: Performed By: #### C BC ####[facility] Eaznyqoyqi5940 [place] [id number]. Garima Pulliam MCH (RBC) [Entitic mass] 30.2 pg Normal 25.9-34.0 [facility] Comment on above: Performed By: #### C BC ####[facility] Lcfjibxobx0670 [place] [id number]. Garima Pulliam MCHC (RBC) [Mass/Vol] 33.4 g/dL Normal 29.9-35.2 [facility] Comment on above: Performed By: #### C BC ####[facility] Agyrfqymrr9782 [place] [id number]. Garima Pulliam MCV (RBC) [Entitic vol] 90.3 fL Normal 80.0-94.0 [facility] Comment on above: Performed By: #### C BC ####[facility] Edzntbzokz3462 [place] [id number]. Garima Heraclio MONO # 0.1 103/ul Critically low 0.3-0.8 [facility] Comment on above: Performed By: #### C BC ####[facility] Ozpnlcouxp37[address] [place] [id number]. Garima Pulliam Monocytes/100 WBC (Bld) 0.9 % Critically low 1.7-12.0 [facility] Comment on above: Performed By: #### C BC ####[facility] Bctkqvfljc6[address] [place] [id number]. Garima Pulliam NEUT # 5.6 103/ul Normal 1.4-6.5 [facility] Comment on above: Performed By: #### C BC ####[facility] Dnslyvidlb3666 [place] [id number]. Garima Pulliam Neutrophils/100 WBC (Bld) 86.2 % Critically high 43.0-75.0 [facility] Comment on above: Performed By: #### C BC ####[facility] Frfgdsaxqt6[address] [place] [address]Dr. Garima Pulliam Platelet mean volume (Bld) [Entitic vol] 9.1 fL Critically low 9.5-13.5 [facility] Comment on above: Performed By: #### C BC ####[facility] Nsuafixtch[address] [place], [place] [address]Dr. Garima Pulliam PLT 169 103/ul Normal 150-450 [facility] Comment on above: Performed By: #### C BC ####[facility] Eniraozonm994[address] [place], [place] [address]Dr. Garima Pulliam RBC 5.17 106/ul Normal 4.70-6.10 [facility] Comment on above: Performed By: #### C BC ####[facility] Ihdsgaponj9[address] [place], [place] [id number]. Garima Pulliam WBC 6.5 103/ul Normal 4.0-11.0 [facility] Comment on above: Performed By: #### C BC ####[facility] Mkfisbjfjv801[address] [place], [place] [address]Dr. Garima Pulliam D-DIMERon 01-13-2023 D-DIMER 0.41 mg/L FEU Normal <=0.59 [facility] Comment on above: Performed By: #### D DIM ####[facility] Ijxguqsnfz7[address] [place] [address]Dr. Garima Pulliam D-DIMER COMMENTS SEE BELOW Normal [facility] Comment on above: [...] #### D DIM ####[facility] Zwybczdwsh8564[address] [place], [place] [address]Dr. Garima Pulliam PROF 14(COMP METB)on 023 Albumin [Mass/Vol] 3.4 g/dL Normal 3.4-5.0 [facility] Comment on above: Performed By: #### C MP ####[facility] Omaufubxpr085[address] [place], [place] [address]Dr. Garima Pulliam Albumin/Globulin [Mass ratio] 1.3 {ratio} Normal [facility] Comment on above: Performed By: #### C MP ####[facility] Anmqprueta810[address] [place], [place] [address]Dr. Garima Pulliam ALP [Catalytic activity/Vol] 83 U/L Normal 46-116 [facility] Comment on above: Performed By: #### C MP ####[facility] Juzbonspeg4533[address] [place], [place] [address]Dr. Garima Pulliam ALT [Catalytic activity/Vol] 25 U/L Normal 16-63 [facility] Comment on above: Performed By: #### C MP ####[facility] Sylusaetrc5391 [place] [address]Dr. Garima Pulliam Anion gap [Moles/Vol] 14.5 mmol/L Normal [facility] Comment on above: Performed By: #### C MP ####[facility] Xnsabvvvkm640[address] [place], [place] [address]Dr. Garima Pulliam AST [Catalytic activity/Vol] 19 U/L Normal 15-37 [facility] Comment on above: Performed By: #### C MP ####[facility] Sfmcklzypv67119[address] [place], [place] [address]Dr. Garima Pulliam Bilirubin [Mass/Vol] 0.4 mg/dL Normal 0.2-1.0 [facility] Comment on above: Performed By: #### C MP ####[facility] Gscljciyth906[address] [place], [place] [address]Dr. Garima Pulliam Calcium [Mass/Vol] 8.7 mg/dL Normal 8.5-10.1 [facility] Comment on above: Performed By: #### C MP ####[facility] Arboligezl1727[address] [place], [place] [address]Dr. Garima Pulliam Chloride [Moles/Vol] 104 mmol/L Normal 98-107 [facility] Comment on above: Performed By: #### C MP ####[facility] Srkfbuatsp602[address] [place], [place] [address]Dr. Garima Pulliam CO2 [Moles/Vol] 24.5 mmol/L Normal 21.0-32.0 [facility] Comment on above: Performed By: #### C MP ####[facility] Vrtxfwxbog0130[address] [place], [place] [address]Dr. Garima Pulliam Creatinine [Mass/Vol] 0.70 mg/dL Normal 0.70-1.30 [facility] Comment on above: Performed By: #### C MP ####[facility] Mdqgqbrogh9437[address] [place], [place] [address]Dr. Garima Heraclio EGFR-AF CITIZEN [place] >60 Normal >=60 [facility] Comment on above: Performed By: #### C MP ####[facility] Cfxwmlutyx558796 [address] [place], [place] [address]Dr. Chapisrenu Heraclio EGFR-NON AF CITIZEN OF [place] >60 Normal >=60 [facility] Comment on above: Performed By: #### C MP ####[facility] Cpnasvdwxh457[address] [place], [place] [address]Dr. Chapisrenu Pulliam Globulin (S) [Mass/Vol] 2.6 g/dL Normal [facility] Comment on above: Performed By: #### C MP ####[facility] Vkebnxvrtc11[address] [place] [address]Dr. Garima Pulliam Glucose [Mass/Vol] 196 mg/dL Critically high 74-106 [facility] Comment on above: Performed By: #### C MP ####[facility] Yebpjycfkk9[address] [place] [address]Dr. Garima Pulliam Potassium [Moles/Vol] 4.0 mmol/L Normal 3.5-5.1 [facility] Comment on above: Performed By: #### C MP ####[facility] Yrssiglwhv6979 [place] [address]Dr. Garima Pulliam Protein [Mass/Vol] 6.0 g/dL Critically low 6.4-8.2 [facility] Comment on above: Performed By: #### C MP ####[facility] Uxjmuokkld307[address] [place], [place] [address]Dr. Garima Pulliam Sodium [Moles/Vol] 139 mmol/L Normal 136-145 [facility] Comment on above: Performed By: #### C MP ####[facility] Digxulnibj29039[address] [place], [place] [address]Dr. Garima Pulliam Urea nitrogen [Mass/Vol] 7.0 mg/dL Normal 7.0-18.0 [facility] Comment on above: Performed By: #### C MP ####[facility] Amatoxfvva144[address] [place], [place] [address]Dr. Garima Heraclio Urea nitrogen/Creatinine [Mass ratio] 10.0 mg/mg Normal [facility] Comment on above: Performed By: #### C MP ####[facility] Jzdwjvfjwa9070[address] [place], [place] [address]Dr. Garima Heraclio BNPon 01-12-2023 Natriuretic peptide B (Bld) [Mass/Vol] 141.0 pg/mL Normal <=900.0 [facility] Comment on above: Performed By: #### C MP, BNP, HSTROPN ####[facility] Bbhwncmvov989[address] [place], [place] [address]Dr. Garima Heraclio CBC AUTO DIFFon 01-12-2023 BASO # 0.0 103/ul Normal 0.0-0.1 [facility] Comment on above: Performed By: #### C BC ####[facility] Zxrqfrnzsu1250 [place] [id number]. Garima Heraclio Basophils/100 WBC (Bld) 0.2 % Normal 0.2-2.0 [facility] Comment on above: Performed By: #### C BC ####[facility] Fvaxhetckj7463 [place] [address]Dr. Garima Heraclio EO # 0.2 103/ul Normal 0.0-0.7 [facility] Comment on above: Performed By: #### C BC ####[facility] Yzukmgdavo4434 [place] [address]Dr. Garima Heraclio Eosinophils/100 WBC (Bld) 2.7 % Normal 0.9-7.0 [facility] Comment on above: Performed By: #### C BC ####[facility] Jjenpvlctk990[address] [place], [place] [address]Dr. Garima Pulliam Erythrocyte distribution width (RBC) [Ratio] 13.3 % Normal 11.0-15.0 [facility] Comment on above: Performed By: #### C BC ####[facility] Znroxrztvm292[address] [place], [place] [address]Dr. Garima Pulliam Hematocrit (Bld) [Volume fraction] 42.3 % Normal 42.0-54.0 [facility] Comment on above: Performed By: #### C BC ####[facility] Tkzbhwueua8460[address] [place], [place] [address]Dr. Garima Pulliam Hemoglobin (Bld) [Mass/Vol] 14.3 g/dL Normal 14.0-18.0 [facility] Comment on above: Performed By: #### C BC ####[facility] Viqgupeqhv016[address] [place], [place] [address]Dr. Garima Pulliam IG # 0.02 10e3/ul Normal 0.00-0.03 [facility] Comment on above: Performed By: #### C BC ####[facility] Utfaaedodd5364 [place] [id number]. Garima Pulliam IG % 0.2 % Normal 0.0-0.5 [facility] Comment on above: Performed By: #### C BC ####[facility] Aogvlvzcin8458 [place] [id number]. Garima Pulliam LYMPH # 2.6 103/ul Normal 1.2-3.8 [facility] Comment on above: Performed By: #### C BC ####[facility] Ohiijrttmc4427 [place] [id number]. Garima Heraclio Lymphocytes/100 WBC (Bld) 29.6 % Normal 20.5-60.0 [facility] Comment on above: Performed By: #### C BC ####[facility] Lksfjswjnj94[address] [place] [address]Dr. Garima Heraclio MANUAL DIFF REQ NO Normal [facility] Comment on above: Performed By: #### C BC ####[facility] Ceqhzkizzi9076 [place] [id number]. Garima Pulliam MCH (RBC) [Entitic mass] 30.2 pg Normal 25.9-34.0 [facility] Comment on above: Performed By: #### C BC ####[facility] Ihzdpflzns9374 [place] [address]Dr. Garima Pulliam MCHC (RBC) [Mass/Vol] 33.8 g/dL Normal 29.9-35.2 [facility] Comment on above: Performed By: #### C BC ####[facility] Tukixmegya4465 [place] [id number]. Garima Pulliam MCV (RBC) [Entitic vol] 89.2 fL Normal 80.0-94.0 [facility] Comment on above: Performed By: #### C BC ####[facility] Okuopjaeos97[address] [place], [place] [address]Dr. Chapisrenu Pulliam MONO # 0.7 103/ul Normal 0.3-0.8 [facility] Comment on above: Performed By: #### C BC ####[facility] Xfichasebn0898 [place] [id number]. Garima Pulliam Monocytes/100 WBC (Bld) 8.3 % Normal 1.7-12.0 [facility] Comment on above: Performed By: #### C BC ####[facility] Qmvshwifny1336 [place] [id number]. Garima Pulliam NEUT # 5.1 103/ul Normal 1.4-6.5 [facility] Comment on above: Performed By: #### C BC ####[facility] Gldgmbflbp6737 [place] [id number]. Garima Pulliam Neutrophils/100 WBC (Bld) 59.0 % Normal 43.0-75.0 [facility] Comment on above: Performed By: #### C BC ####[facility] Alempulzcm0619 [place] [address]Dr. Garima Pulliam Platelet mean volume (Bld) [Entitic vol] 8.7 fL Critically low 9.5-13.5 [facility] Comment on above: Performed By: #### C BC ####[facility] Wtflyvrgpa4538 [place] [address]Dr. Garima Pulliam PLT 182 103/ul Normal 150-450 [facility] Comment on above: Performed By: #### C BC ####[facility] Rwwayadgnf2217 [place] [id number]. Garima Pulliam RBC 4.74 106/ul Normal 4.70-6.10 [facility] Comment on above: Performed By: #### C BC ####[facility] Evpshjodgm[address] [place], [place] [id number]. Garima Pulliam WBC 8.7 103/ul Normal 4.0-11.0 [facility] Comment on above: Performed By: #### C BC ####[facility] Tiognlfuvp[address] [place], [place] [address]Dr. Garima Pulliam Covid-19 PCR (CVDTB)on 12-25 SARS-CoV-2 [...] for this test is supported by the [employer] of Health and Human Service's declaration that [...] #### C VDTBH ####[facility] Rvplmhupby5[address] [place] [address]Dr. Garima Pulliam PROF 14(COMP METB)on 023 Albumin [Mass/Vol] 3.6 g/dL Normal 3.4-5.0 [facility] Comment on above: Performed By: #### C MP, BNP, HSTROPN ####[facility] Yhyxugsacv0260 [place] [address]Dr. Garima Pulliam Albumin/Globulin [Mass ratio] 1.5 {ratio} Normal [facility] Comment on above: Performed By: #### C MP, BNP, HSTROPN ####[facility] Ojcrlgeuhl5[address] [place] [address]Dr. Garima Pulliam ALP [Catalytic activity/Vol] 79 U/L Normal 46-116 [facility] Comment on above: Performed By: #### C MP, BNP, HSTROPN ####[facility] Gbnlbpggnq9462 [place] [address]Dr. Garima Pulliam ALT [Catalytic activity/Vol] 27 U/L Normal 16-63 [facility] Comment on above: Performed By: #### C MP, BNP, HSTROPN ####[facility] Itnagffvol4787 [place] [address]Dr. Garima Pulliam Anion gap [Moles/Vol] 11.7 mmol/L Normal [facility] Comment on above: Performed By: #### C MP, BNP, HSTROPN ####[facility] Nomtjirgzk4935 [place] [address]Dr. Garima Pulliam AST [Catalytic activity/Vol] 21 U/L Normal 15-37 [facility] Comment on above: Performed By: #### C MP, BNP, HSTROPN ####[facility] Cyujrswdgo5149 [place] [address]Dr. Garima Pulliam Bilirubin [Mass/Vol] 0.3 mg/dL Normal 0.2-1.0 [facility] Comment on above: Performed By: #### C MP, BNP, HSTROPN ####[facility] Ravibxmxpn4946 [place] [address]Dr. Garima Pulliam Calcium [Mass/Vol] 8.9 mg/dL Normal 8.5-10.1 [facility] Comment on above: Performed By: #### C MP, BNP, HSTROPN ####[facility] Jphhtwjcod[address] [place] [address]Dr. Garima Pulliam Chloride [Moles/Vol] 107 mmol/L Normal 98-107 [facility] Comment on above: Performed By: #### C MP, BNP, HSTROPN ####[facility] Hrsfhqyxst4949 [place] [address]Dr. Garima Pulliam CO2 [Moles/Vol] 26.0 mmol/L Normal 21.0-32.0 [facility] Comment on above: Performed By: #### C MP, BNP, HSTROPN ####[facility] Rfyfsgedth4261 [place] [address]Dr. Garima Pulliam Creatinine [Mass/Vol] 0.65 mg/dL Critically low 0.70-1.30 [facility] Comment on above: Performed By: #### C MP, BNP, HSTROPN ####[facility] Ujpvclldar11[address] [place] [address]Dr. Yilan Pulliam EGFR-AF CITIZEN OF [place] >60 Normal >=60 [facility] Comment on above: Performed By: #### C MP, BNP, HSTROPN ####[facility] Ezzifxqpbk4337 [place] [address]Dr. Garima Pulliam EGFR-NON AF CITIZEN OF [place] >60 Normal >=60 [facility] Comment on above: Performed By: #### C MP, BNP, HSTROPN ####[facility] Ygirjcmdux2289 [place] [address]Dr. Garima Pulliam Globulin (S) [Mass/Vol] 2.4 g/dL Normal [facility] Comment on above: Performed By: #### C MP, BNP, HSTROPN ####[facility] Ffhrybhuis[address] [place], [place] [address]Dr. Garima Pulliam Glucose [Mass/Vol] 85 mg/dL Normal 74-106 [facility] Comment on above: Performed By: #### C MP, BNP, HSTROPN ####[facility] Sngvqjmcyu8939 [place] [address]Dr. Garima Pulliam Potassium [Moles/Vol] 3.7 mmol/L Normal 3.5-5.1 [facility] Comment on above: Performed By: #### C MP, BNP, HSTROPN ####[facility] Goxhbhlubx39[address] [place] [address]Dr. Garima Pulliam Protein [Mass/Vol] 6.0 g/dL Critically low 6.4-8.2 [facility] Comment on above: Performed By: #### C MP, BNP, HSTROPN ####[facility] Yhoncovpbr5030 [place] [address]Dr. Garima Pulliam Sodium [Moles/Vol] 141 mmol/L Normal 136-145 [facility] Comment on above: Performed By: #### C MP, BNP, HSTROPN ####[facility] Sdltvtzbwu5401 [place] [address]Dr. Garima Pulliam Urea nitrogen [Mass/Vol] 5.0 mg/dL Critically low 7.0-18.0 [facility] Comment on above: Performed By: #### C MP, BNP, HSTROPN ####[facility] Opeuqjgmdi5495 [place] [address]Dr. Garima Pulliam Urea nitrogen/Creatinine [Mass ratio] 7.7 mg/mg Normal [facility] Comment on above: Performed By: #### C MP, BNP, HSTROPN ####[facility] Xyxfdsfstj6764 [place] [address]Dr. Garima Pulliam PROTIMEon 01-12-2023 INR Coag (PPP) [Relative time] 1.16 {INR} Normal [facility] Comment on above: Performed By: #### P TT, PT ####[facility] Awxluqvkxq7305 [place] [address]Dr. Garima Pulliam INR GUIDELINES SEE BELOW Normal [facility] Comment on above: Result Comment: WESLEY RED INR: 2.0 - 3.0 CONDITIONS NOT LISTED BELOW 2.5 - 3.5 FOR PROSTHETIC HEART VALVE REPLACEMENT 2.5 - 3.5 RECURRENT THROMBOSIS Performed By: #### P TT, PT ####[facility] Fxlgibwhxo[address] [place], [place] [address]Dr. Garima Pulliam PT Coag (PPP) [Time] 12.2 s Critically high 9.0-11.6 [facility] Comment on above: Performed By: #### P TT, PT ####[facility] Fqubsshiin2335 [place] [address]Dr. Garima Pulliam PTTon 01-12-2023 aPTT Coag (Bld) [Time] 29.1 s Normal 22.3-36.2 [facility] Comment on above: Performed By: #### P TT, PT ####[facility] Timxuxolsb330[address] [place], [place] [address]Dr. Garima Pulliam TROPONIN, HIGH SENSITIVITYon 01-12-2023 HSTROP [...] [place] DIAGNOSIS. Performed By: #### H STROPN ####[facility] Hmoigztoad[address] [place] [address]Dr. Garima Pulliam HSTROP 9.2 pg/mL Normal 4.0-76.1 [facility] Comment on above: Result Comment: CUT- OFF POINTS HAVE BEEN ESTABLISHED BASED ON THE FOURTH UNIVERSAL DEFINITIONS OF MYOCARDIALINFARCTION. THE UPPER REFERENCE LIMIT (URL) OF TROPONIN, DEFINED THE 99TH PERCENTILE OFcTnI DISTRIBUTION IN A REFERENCE POPULATION, HAS BEEN CONFIRMED THE DECISION THRESHOLDFOR [place] DIAGNOSIS. Performed By: #### C MP, BNP, HSTROPN ####[facility] Wgkynopmdm3674 [place] [address]Dr. Garima Pulliam XR CHEST 1 Von 01-12-2023 XR CHEST 1 V Normal [facility] XR CHEST 1 Von 01-01-2023 XR CHEST 1 V Normal [facility] CARDIAC NASH 3-6on 3 CK [Catalytic activity/Vol] 196 U/L Normal 39-308 [facility] Comment on above: Performed By: #### C MREP ####[facility] Biyvuamkba23[address] [place] [address]Dr. Garima Pulliam CK.MB [Mass/Vol] 7.41 ng/mL Critically high <=3.60 [facility] Comment on above: Performed By: #### C MREP ####[facility] Lqukfcldta4779 [place] [address]Dr. Garima Pulliam HSTROP 10.3 pg/mL Normal 4.0-76.1 [facility] Comment on above: Result Comment: CUT- OFF POINTS HAVE BEEN ESTABLISHED BASED ON THE FOURTH UNIVERSAL DEFINITIONS OF MYOCARDIALINFARCTION. THE UPPER REFERENCE LIMIT (URL) OF TROPONIN, DEFINED THE 99TH PERCENTILE OFcTnI DISTRIBUTION IN A REFERENCE POPULATION, HAS BEEN CONFIRMED THE DECISION THRESHOLDFOR [place] DIAGNOSIS. Performed By: #### C MREP ####[facility] Kdzzelwygn2514 [place] [id number]. Garima Pulliam XR CHEST 1 Von 12-26-2022 XR CHEST 1 V Normal [facility] BNPon 12-25-2022 Natriuretic peptide B (Bld) [Mass/Vol] 98.0 pg/mL Normal <=900.0 [facility] Comment on above: Performed By: #### B MARVIN FRENCH CMADM ####[facility] Hhnniomkps[address] [place] [address]Dr. Garima Pulliam CARDIAC NASH ADMITon 023 CK [Catalytic activity/Vol] 208 U/L Normal 39-308 [facility] Comment on above: Performed By: #### B MARVIN FRENCH CMADM ####[facility] Cvovzzfyut0292 [place] [address]Dr. Garima Pulliam CK.MB [Mass/Vol] 7.63 ng/mL Critically high <=3.60 [facility] Comment on above: Performed By: #### B MARVIN FRENCH CMADM ####[facility] Mtqbrbbftq[address] [place], [place] [address]Dr. Garima Pulliam HSTROP 8.8 pg/mL Normal 4.0-76.1 [facility] Comment on above: Result Comment: CUT- OFF POINTS HAVE BEEN ESTABLISHED BASED ON THE FOURTH UNIVERSAL DEFINITIONS OF MYOCARDIALINFARCTION. THE UPPER REFERENCE LIMIT (URL) OF TROPONIN, DEFINED THE 99TH PERCENTILE OFcTnI DISTRIBUTION IN A REFERENCE POPULATION, HAS BEEN CONFIRMED THE DECISION THRESHOLDFOR [place] DIAGNOSIS. Performed By: #### B MARVIN FRENCH CMADM ####[facility] Bftrvtyyxf94[address] [place], [place] [address]Dr. Garima Pulliam DORIS 83 ng/mL Normal 16-96 [facility] Comment on above: Performed By: #### B MARVIN FRENCH CMADM ####[facility] Ozyncwpvpj32[address] [place], [place] [address]Dr. Garima Pulliam CBC AUTO DIFFon 12-25-2022 BASO # 0.0 103/ul Normal 0.0-0.1 [facility] Comment on above: Performed By: #### C BC ####[facility] Imbnbipjmi217[address] [place], [place] [address]Dr. Garima Pulliam Basophils/100 WBC (Bld) 0.0 % Critically low 0.2-2.0 [facility] Comment on above: Performed By: #### C BC ####[facility] Uuxcnbxeva5157 [place] [address]Dr. Garima Pulliam EO # 0.0 103/ul Normal 0.0-0.7 [facility] Comment on above: Performed By: #### C BC ####[facility] Ffombezuub[address] [place], [place] [address]Dr. Garima Pulliam Eosinophils/100 WBC (Bld) 0.7 % Critically low 0.9-7.0 [facility] Comment on above: Performed By: #### C BC ####[facility] Ayznpxcpvp419[address] [place], [place] [address]Dr. Garima Pulliam Erythrocyte distribution width (RBC) [Ratio] 13.4 % Normal 11.0-15.0 [facility] Comment on above: Performed By: #### C BC ####[facility] Xkbpetaunp365[address] [place], [place] [address]Dr. Garima Pulliam Hematocrit (Bld) [Volume fraction] 42.9 % Normal 42.0-54.0 [facility] Comment on above: Performed By: #### C BC ####[facility] Okilepsnui615[address] [place], [place] [address]Dr. Garima Pulliam Hemoglobin (Bld) [Mass/Vol] 14.4 g/dL Normal 14.0-18.0 [facility] Comment on above: Performed By: #### C BC ####[facility] Esvplpaxcc[address] [place], [place] [address]Dr. Garima Pulliam IG # 0.00 10e3/ul Normal 0.00-0.03 [facility] Comment on above: Performed By: #### C BC ####[facility] Qiyatonwuj25[address] [place], [place] [address]Dr. Garima Pulliam IG % 0.0 % Normal 0.0-0.5 [facility] Comment on above: Performed By: #### C BC ####[facility] Xnohsfyrsn[address] [place], [place] [address]Dr. Garima Pulliam LYMPH # 2.4 103/ul Normal 1.2-3.8 [facility] Comment on above: Performed By: #### C BC ####[facility] Ntlyfouaun034[address] [place] [id number]. Chapisrenu Pulliam Lymphocytes/100 WBC (Bld) 29.2 % Normal 20.5-60.0 [facility] Comment on above: Performed By: #### C BC ####[facility] Jwnuxnujgg64[address] [place] [id number]. Garima Pulliam MANUAL DIFF REQ NO Normal [facility] Comment on above: Performed By: #### C BC ####[facility] Cflcbbzaoz1790 [place] [id number]. Garima Pulliam MCH (RBC) [Entitic mass] 30.7 pg Normal 25.9-34.0 [facility] Comment on above: Performed By: #### C BC ####[facility] Tlspabiyuo[address] [place], [place] [address]Dr. Garima Pulliam MCHC (RBC) [Mass/Vol] 33.6 g/dL Normal 29.9-35.2 [facility] Comment on above: Performed By: #### C BC ####[facility] Kkabidyxti[address] [place], [place] [address]Dr. Garima Pulliam MCV (RBC) [Entitic vol] 91.5 fL Normal 80.0-94.0 [facility] Comment on above: Performed By: #### C BC ####[facility] Ecfyaejdqf360[address] [place], [place] [address]Dr. Garima Pulliam MONO # 0.0 103/ul Critically low 0.3-0.8 [facility] Comment on above: Performed By: #### C BC ####[facility] Imlmrisaiq5[address] [place] [address]Dr. Garima Pulliam Monocytes/100 WBC (Bld) 8.0 % Normal 1.7-12.0 [facility] Comment on above: Performed By: #### C BC ####[facility] Qklzgpmcrq295[address] [place], [place] [address]Dr. Garima Pulliam NEUT # 5.1 103/ul Normal 1.4-6.5 [facility] Comment on above: Performed By: #### C BC ####[facility] Htgefwehst5[address] [place], [place] [address]Xr. Garima Pulliam Neutrophils/100 WBC (Bld) 62.8 % Normal 43.0-75.0 [facility] Comment on above: Performed By: #### C BC ####[facility] Hvcpvpctvl3829 [place], [place] [address]Lb. Garima Pulliam Platelet mean volume (Bld) [Entitic vol] 8.6 fL Critically low 9.5-13.5 [facility] Comment on above: Performed By: #### C BC ####[facility] Hlfjxggucp5912 [place] [id number]. Garima Pulliam PLT 200 103/ul Normal 150-450 [facility] Comment on above: Performed By: #### C BC ####[facility] Ljeiuwbwfy5800 [place] [id number]. Garima Pulliam RBC 4.69 106/ul Critically low 4.70-6.10 [facility] Comment on above: Performed By: #### C BC ####[facility] Horelottvl9001 [place], [place] [address]Rq. Garima Pulliam WBC 8.2 103/ul Normal 4.0-11.0 [facility] Comment on above: Performed By: #### C BC ####[facility] Xzpmyinfab0030 [place], [place] [address]Ez. Garima Pulliam [facility]on SARS-CoV-2 (COVID-19) RNA MARIE+probe Ql (Unsp [...] for this test is supported by the [employer] of Health and Human Service's declaration that [...] #### C VDTBH ####[facility] Cvmvcwjsns74[address] [place], [place] [address]Dr. Garima Pulliam INFLUENZA A AND B AGon 12-25 INFLUANEGH SEE BELOW Normal [facility] Comment on above: Result Comment: Nega tive for Flu A protein angiten. Infection due to Flu A cannot be ruled out. Flu A angiten in the sample may be below the detection limit of the test. Performed By: #### I NFLUAB ####[facility] Cdxszmajxq86[address] [place], [place] [address]Dr. Garima Pulliam INFLUBNEGH SEE BELOW Normal [facility] Comment on above: Result Comment: Nega tive for Flu B protein antigen. Infection due to Flu B cannot be ruled out. Flu B antigen in the sample may be below the detection limit of the test. Performed By: #### I NFLUAB ####[facility] Voeicokxqt99[address] [place], [place] [address]Dr. Garima Pulliam INFLUENZA A AG Negative Normal NEGATIVE SEE COMMENT [facility] Comment on above: Performed By: #### I NFLUAB ####[facility] Whftfggyiw2724[address] [place], [place] [address]Dr. renu [facility] INFLUENZA B AG Negative Normal NEGATIVE SEE COMMENT [facility] Comment on above: Performed By: #### I NFLUAB ####[facility] Rixvwpdsox29[address] [place], [place] [address]Dr. Garima Pulliam PROF CHEM 8 (BAS METB)on Anion gap [Moles/Vol] 11.1 mmol/L Normal [facility] Comment on above: Performed By: #### B NUDE MODEL, BMP, CMADM ####[facility] Trkuucmjvp5623[address] [place], [place] [address]Dr. Garima Pulliam Calcium [Mass/Vol] 8.5 mg/dL Normal 8.5-10.1 [facility] Comment on above: Performed By: #### B NUDE MODEL, MARVIN, CMADM ####[facility] Atstbtwzkg58[address] [place] [id number]. Garima Pulliam Chloride [Moles/Vol] 106 mmol/L Normal 98-107 [facility] Comment on above: Performed By: #### B NUDE MODEL, BMP, CMADM ####[facility] Eswaotqlps4753 [place] [address]Dr. Garima Pulliam CO2 [Moles/Vol] 27.4 mmol/L Normal 21.0-32.0 [facility] Comment on above: Performed By: #### B NUDE MODEL, MARVIN, CMADM ####[facility] Xsbuscriuk6247 [place] [address]Dr. Garima Pulliam Creatinine [Mass/Vol] 0.65 mg/dL Critically low 0.70-1.30 [facility] Comment on above: Performed By: #### B NUDE MODEL, MARVIN, CMADM ####[facility] Tnfandrlcm5737 [place] [address]Dr. Garima Pulliam EGFR-AF CITIZEN OF [place] >60 Normal >=60 [facility] Comment on above: Performed By: #### B NUDE MODEL, BMP, CMADM ####[facility] Dspyivokgg1453 [place] [address]Dr. Garima Pulliam EGFR-NON AF CITIZEN OF [place] >60 Normal >=60 [facility] Comment on above: Performed By: #### B NUDE MODEL, BMP, CMADM ####[facility] Nsdiveinno9925 [place] [address]Dr. Garima Pulliam Glucose [Mass/Vol] 140 mg/dL Critically high 74-106 [facility] Comment on above: Performed By: #### B NUDE MODEL, BMP, CMADM ####[facility] Dtikxhutef5563 [place] [address]Dr. Garima Pulliam Potassium [Moles/Vol] 3.5 mmol/L Normal 3.5-5.1 [facility] Comment on above: Performed By: #### B NUDE MODEL, BMP, CMADM ####[facility] Vffiujksbw6851 [place] [address]Dr. Garima Pulliam Sodium [Moles/Vol] 141 mmol/L Normal 136-145 [facility] Comment on above: Performed By: #### B NUDE MODEL, BMP, CMADM ####[facility] Wndzawsgxu5384 [place] [address]Dr. Garima Pulliam Urea nitrogen [Mass/Vol] 8.0 mg/dL Normal 7.0-18.0 [facility] Comment on above: Performed By: #### B NUDE MODEL, BMP, CMADM ####[facility] Lwomxpcywv5163 [place] [address]Dr. Garima Pulliam Urea nitrogen/Creatinine [Mass ratio] 12.3 mg/mg Normal [facility] Comment on above: Performed By: #### B NUDE MODEL, BMP, CMADM ####[facility] Piakarjgxh346[address] [place], [place] [address]Dr. Garima Pulliam CARDIAC NASH ADMITon 023 CK [Catalytic activity/Vol] 165 U/L Normal 39-308 [facility] Comment on above: Performed By: #### B DAVID, CMADM ####[facility] Dnxzebiife413[address] [place], [place] [address]Dr. Garima Pulliam CK.MB [Mass/Vol] 6.48 ng/mL Critically high <=3.60 [facility] Comment on above: Performed By: #### B MP, CMADM ####[facility] Klqdkgrkba3227[address] [place], [place] [address]Dr. Garima Pulliam HSTROP 11.7 pg/mL Normal 4.0-76.1 [facility] Comment on above: Result Comment: CUT- OFF POINTS HAVE BEEN ESTABLISHED BASED ON THE FOURTH UNIVERSAL DEFINITIONS OF MYOCARDIALINFARCTION. THE UPPER REFERENCE LIMIT (URL) OF TROPONIN, DEFINED THE 99TH PERCENTILE OFcTnI DISTRIBUTION IN A REFERENCE POPULATION, HAS BEEN CONFIRMED THE DECISION THRESHOLDFOR WI DIAGNOSIS. Performed By: #### B MP, CMADM ####[facility] Vpxhbymdqm0664[address] [place], [place] [address]Dr. Garima Pulliam DORIS 83 ng/mL Normal 16-96 [facility] Comment on above: Performed By: #### B MP, CMADM ####[facility] Qbaavdkoxz7489 [place] [address]Dr. Garima Pulliam CBC AUTO DIFFon 12-10-2022 BASO # 0.0 103/ul Normal 0.0-0.1 [facility] Comment on above: Performed By: #### C BC ####[facility] Tydmbaodru7036[address] [place], [place] [address]Dr. Garima Heraclio Basophils/100 WBC (Bld) 0.3 % Normal 0.2-2.0 [facility] Comment on above: Performed By: #### C BC ####[facility] Pwlsbwbgbq1868[address] [place], [place] [address]Dr. Garima Pulliam EO # 0.1 103/ul Normal 0.0-0.7 [facility] Comment on above: Performed By: #### C BC ####[facility] Nvdsebhpxh823[address] [place], [place] [address]Dr. Garima Pulliam Eosinophils/100 WBC (Bld) 0.4 % Critically low 0.9-7.0 [facility] Comment on above: Performed By: #### C BC ####[facility] Tufizfchns716[address] [place], [place] [address]Dr. Garima Pulliam Erythrocyte distribution width (RBC) [Ratio] 13.2 % Normal 11.0-15.0 [facility] Comment on above: Performed By: #### C BC ####[facility] Zyquthkyfq834[address] [place], [place] [address]Dr. Garima Pulliam Hematocrit (Bld) [Volume fraction] 42.4 % Normal 42.0-54.0 [facility] Comment on above: Performed By: #### C BC ####[facility] Esvkdwbidc7901[address] [place], [place] [address]Dr. Garima Pulliam Hemoglobin (Bld) [Mass/Vol] 14.4 g/dL Normal 14.0-18.0 [facility] Comment on above: Performed By: #### C BC ####[facility] Gymycedbfm2418 [place] [id number]. Garima Heraclio IG # 0.05 10e3/ul Critically high 0.00-0.[address] [facility] Comment on above: Performed By: #### C BC ####[facility] Jnfsxnchag1849 [place] [address]Dr. Garima Heracloi IG % 0.4 % Normal 0.0-0.5 [facility] Comment on above: Performed By: #### C BC ####[facility] Hszbtyfeqk038[address] [place], [place] [address]Dr. Garima Pulliam LYMPH # 0.8 103/ul Critically low 1.2-3.8 [facility] Comment on above: Performed By: #### C BC ####[facility] Bifzaoixtn944[address] [place], [place] [address]Dr. Chapisrenu Pulliam Lymphocytes/100 WBC (Bld) 6.5 % Critically low 20.5-60.0 [facility] Comment on above: Performed By: #### C BC ####[facility] Zezxchosft[address] [place], [place] [address]Dr. Chapisrenu Pulliam MANUAL DIFF REQ NO Normal [facility] Comment on above: Performed By: #### C BC ####[facility] Tfxrbnawbf599[address] [place], [place] [address]DrAdalberto Garima Pulliam MCH (RBC) [Entitic mass] 30.5 pg Normal 25.9-34.0 [facility] Comment on above: Performed By: #### C BC ####[facility] Wjalfidfhc[address] [place], [place] [address]DrAdalberto Garima Heraclio MCHC (RBC) [Mass/Vol] 34.0 g/dL Normal 29.9-35.2 [facility] Comment on above: Performed By: #### C BC ####[facility] Wrubiwhirb[address] [place], [place] [address]DrAdalberto Garima Heraclio MCV (RBC) [Entitic vol] 89.8 fL Normal 80.0-94.0 [facility] Comment on above: Performed By: #### C BC ####[facility] Tccaxegaaa[address] [place], [place] [address]Dr. Garima Pulliam MONO # 0.2 103/ul Critically low 0.3-0.8 [facility] Comment on above: Performed By: #### C BC ####[facility] Mkdhmhkvoz7170 [place] [id number]. Garima Pulliam Monocytes/100 WBC (Bld) 2.0 % Normal 1.7-12.0 [facility] Comment on above: Performed By: #### C BC ####[facility] Xqeskhioea8837 [place] [address]Dr. Chapisrenu Heraclio NEUT # 10.5 103/ul Critically high 1.4-6.5 [facility] Comment on above: Performed By: #### C BC ####[facility] Kprmxbjmsh5684 [place] [address]Dr. Garima Pulliam Neutrophils/100 WBC (Bld) 90.4 % Critically high 43.0-75.0 [facility] Comment on above: Performed By: #### C BC ####[facility] Zeombkyifv5479 [place] [address]Dr. Garima Pulliam Platelet mean volume (Bld) [Entitic vol] 9.4 fL Critically low 9.5-13.5 [facility] Comment on above: Performed By: #### C BC ####[facility] Hsydqgihnk0063 [place] [address]Dr. Garima Pulliam PLT 198 103/ul Normal 150-450 [facility] Comment on above: Performed By: #### C BC ####[facility] Ndlerlmvso6711 [place] [address]Dr. Garima Pulliam RBC 4.72 106/ul Normal 4.70-6.10 [facility] Comment on above: Performed By: #### C BC ####[facility] Mqsmdjydij2787 [place] [id number]. Garima Pulliam WBC 11.6 103/ul Critically high 4.0-11.0 [facility] Comment on above: Performed By: #### C BC ####[facility] Atnrfdjfah[address] [place] [address]DrAdalberto Pulliam PROF CHEM 8 (BAS METB)on Anion gap [Moles/Vol] 11.3 mmol/L Normal Th [facility] Comment on above: Performed By: #### B NANCY HERNANDEZ ####[facility] Crjluureal2742 [place] [address]Dr. Garima Pulliam Calcium [Mass/Vol] 8.9 mg/dL Normal 8.5-10.1 [facility] Comment on above: Performed By: #### B NANCY HERNANDEZ ####[facility] Izeigqiivr3286 [place] [address]Dr. Garima Pulliam Chloride [Moles/Vol] 103 mmol/L Normal 98-107 [facility] Comment on above: Performed By: #### B NANCY HERNANDEZ ####[facility] Muoktxsliq84[address] [place], [place] [address]Dr. Garima Pulliam CO2 [Moles/Vol] 28.2 mmol/L Normal 21.0-32.0 [facility] Comment on above: Performed By: #### NANCY Larkin MP ####[facility] Skxtkwxfvl4684 [place] [address]Dr. Chapisrenu Pulliam Creatinine [Mass/Vol] 0.60 mg/dL Critically low 0.70-1.30 [facility] Comment on above: Performed By: #### NANCY Larkin MP ####[facility] Llgsxzflke8903 [place] [address]Dr. Garima Pulliam EGFR-AF CITIZEN OF [place] >60 Normal >=60 [facility] Comment on above: Performed By: #### NANCY Larkin MP ####[facility] Rrpmyoqoge9821 [place] [address]Dr. Garima Pulliam EGFR-NON AF CITIZEN OF [place] >60 Normal >=60 [facility] Comment on above: Performed By: #### NANCY Larkin MP ####[facility] Ogtfgkgzjv457[address] [place], [place] [address]Dr. Garima Pulliam Glucose [Mass/Vol] 166 mg/dL Critically high 74-106 [facility] Comment on above: Performed By: #### B MP, CMADM ####[facility] Efvmewydkd8962 [place] [address]Dr. Garima Pulliam Potassium [Moles/Vol] 3.5 mmol/L Normal 3.5-5.1 [facility] Comment on above: Performed By: #### B MP, CMADM ####[facility] Abpflucwqz0442 [place] [address]Dr. Garima Pulliam Sodium [Moles/Vol] 139 mmol/L Normal 136-145 [facility] Comment on above: Performed By: #### B DAVID, CMADM ####[facility] Lbipnascyc6818 [place] [address]Dr. Garima Heraclio Urea nitrogen [Mass/Vol] 9.0 mg/dL Normal 7.0-18.0 [facility] Comment on above: Performed By: #### B DAVID, NANCY ####[facility] Fyfsladxcn[address] [place], [place] [address]Dr. Garima Heraclio Urea nitrogen/Creatinine [Mass ratio] 15.0 mg/mg Normal [facility] Comment on above: Performed By: #### B DAVID, CMAANA ROSA ####[facility] Pditkiwvvf206[address] [place], [place] [address]Dr. Garima Pulliam XR CHEST 1 Von 12-10-2022 XR CHEST 1 V Normal [facility] BNPon 11-27-2022 Natriuretic peptide B (Bld) [Mass/Vol] 95.0 pg/mL Normal <=900.0 [facility] Comment on above: Performed By: #### C MP, HSTROPN, BNP ####[facility] Whvrkklfoi585[address] [place], [place] [address]Dr. Garima Heraclio CBC AUTO DIFFon 11-27-2022 BASO # 0.0 103/ul Normal 0.0-0.1 [facility] Comment on above: Performed By: #### C BC ####[facility] Bwxxizsfdk512[address] [place], [place] [address]Dr. Garima Heraclio Basophils/100 WBC (Bld) 0.2 % Normal 0.2-2.0 [facility] Comment on above: Performed By: #### C BC ####[facility] Lsghuxdqjd4466 [place] [id number]. Garima Pulliam EO # 0.2 103/ul Normal 0.0-0.7 [facility] Comment on above: Performed By: #### C BC ####[facility] Mhffhskoyd9305 [place] [id number]. Garima Pulliam Eosinophils/100 WBC (Bld) 2.0 % Normal 0.9-7.0 [facility] Comment on above: Performed By: #### C BC ####[facility] Sjertmmrao040[address] [place], [place] [address]Dr. Garima Pulliam Erythrocyte distribution width (RBC) [Ratio] 13.2 % Normal 11.0-15.0 [facility] Comment on above: Performed By: #### C BC ####[facility] Wcvexiaiuz377[address] [place], [place] [address]Dr. Garima Pulliam Hematocrit (Bld) [Volume fraction] 42.4 % Normal 42.0-54.0 [facility] Comment on above: Performed By: #### C BC ####[facility] Wtdpccbpya33[address] [place], [place] [address]Dr. Garima Pulliam Hemoglobin (Bld) [Mass/Vol] 14.4 g/dL Normal 14.0-18.0 [facility] Comment on above: Performed By: #### C BC ####[facility] Zjeixzliir15[address] [place], [place] [address]Dr. Garima Pulliam IG # 0.04 10e3/ul Critically high 0.00-0.[address] [facility] Comment on above: Performed By: #### C BC ####[facility] Iblemjtkng608[address] [place], [place] [address]Dr. Garima Pulliam IG % 0.4 % Normal 0.0-0.5 [facility] Comment on above: Performed By: #### C BC ####[facility] Vnejfehark60[address] [place], [place] [address]Dr. Garima Pulliam LYMPH # 2.2 103/ul Normal 1.2-3.8 [facility] Comment on above: Performed By: #### C BC ####[facility] Ibxrtjiyow2948 [place] [id number]. Garima Pulliam Lymphocytes/100 WBC (Bld) 21.5 % Normal 20.5-60.0 [facility] Comment on above: Performed By: #### C BC ####[facility] Dgedxhcqvs2175 [place] [id number]. Garima Heraclio MANUAL DIFF REQ NO Normal [facility] Comment on above: Performed By: #### C BC ####[facility] Vgtfskgink6338 [place] [id number]. Garima Heraclio MCH (RBC) [Entitic mass] 30.4 pg Normal 25.9-34.0 [facility] Comment on above: Performed By: #### C BC ####[facility] Nmsphqhsfj7790 [place] [address]Dr. Garima Heraclio MCHC (RBC) [Mass/Vol] 34.0 g/dL Normal 29.9-35.2 [facility] Comment on above: Performed By: #### C BC ####[facility] Hlipihvubv7361 [place] [id number]. Garima Pulliam MCV (RBC) [Entitic vol] 89.6 fL Normal 80.0-94.0 [facility] Comment on above: Performed By: #### C BC ####[facility] Repejdrbhs5869 [place] [id number]. Garima Pulliam MONO # 0.8 103/ul Normal 0.3-0.8 [facility] Comment on above: Performed By: #### C BC ####[facility] Fdpngbcnvz3361 [place] [id number]. Chapisrenu Pulliam Monocytes/100 WBC (Bld) 7.7 % Normal 1.7-12.0 [facility] Comment on above: Performed By: #### C BC ####[facility] Bbnqalyapn[address] [place], [place] [address]Dr. Garima Pulliam NEUT # 7.0 103/ul Critically high 1.4-6.5 [facility] Comment on above: Performed By: #### C BC ####[facility] Itsljraudg3945 [place] [id number]. Garima Pulliam Neutrophils/100 WBC (Bld) 68.2 % Normal 43.0-75.0 [facility] Comment on above: Performed By: #### C BC ####[facility] Xrumowsucz9572 [place] [id number]. Chapisrenu Pulliam Platelet mean volume (Bld) [Entitic vol] 8.9 fL Critically low 9.5-13.5 [facility] Comment on above: Performed By: #### C BC ####[facility] Oyztnyryet2969 [place] [address]Dr. Garima Pulliam PLT 222 103/ul Normal 150-450 [facility] Comment on above: Performed By: #### C BC ####[facility] Ijvxdgfbgc2312 [place] [address]Dr. Garima Pulliam RBC 4.73 106/ul Normal 4.70-6.10 [facility] Comment on above: Performed By: #### C BC ####[facility] Nvzhimtaoj2277 [place] [address]Dr. Garima Pulliam WBC 10.3 103/ul Normal 4.0-11.0 [facility] Comment on above: Performed By: #### C BC ####[facility] Evufnfgzir0679 [place] [address]Dr. Garima Pulliam PROF 14(COMP METB)on 023 Albumin [Mass/Vol] 3.7 g/dL Normal 3.4-5.0 [facility] Comment on above: Performed By: #### C MP, HSTROPN, BNP ####[facility] Ixfaockwfr4028 [place] [address]Dr. Chapisrenu Pulliam Albumin/Globulin [Mass ratio] 1.5 {ratio} Normal [facility] Comment on above: Performed By: #### C MP, HSTROPN, BNP ####[facility] Zfgbtjxrgr2058 [place] [address]Dr. Garima Pulliam ALP [Catalytic activity/Vol] 79 U/L Normal 46-116 [facility] Comment on above: Performed By: #### C MP, HSTROPN, BNP ####[facility] Kdeicaygsv2082 [place] [address]Dr. Garima Pulliam ALT [Catalytic activity/Vol] 32 U/L Normal 16-63 [facility] Comment on above: Performed By: #### C MP, HSTROPN, BNP ####[facility] Lzvgtwauth3811 [place] [address]Dr. aGrima Pulliam Anion gap [Moles/Vol] 9.5 mmol/L Normal [facility] Comment on above: Performed By: #### C MP, HSTROPN, BNP ####[facility] Lwgzfnqzbg[address] [place], [place] [address]Dr. Garima Pulliam AST [Catalytic activity/Vol] 25 U/L Normal 15-37 [facility] Comment on above: Performed By: #### C MP, HSTROPN, BNP ####[facility] Jsdwdblylr[address] [place], [place] [address]Dr. Chapislan Pulliam Bilirubin [Mass/Vol] 0.4 mg/dL Normal 0.2-1.0 [facility] Comment on above: Performed By: #### C MP, HSTROPN, BNP ####[facility] Vkydnsgqlg[address] [place], [place] [address]Dr. Garima Pulliam Calcium [Mass/Vol] 8.9 mg/dL Normal 8.5-10.1 [facility] Comment on above: Performed By: #### C MP, HSTROPN, BNP ####[facility] Nrqevotfkm[address] [place], [place] [address]Dr. Chapislan Pulliam Chloride [Moles/Vol] 103 mmol/L Normal 98-107 [facility] Comment on above: Performed By: #### C MP, HSTROPN, BNP ####[facility] Pfnmgladsq50[address] [place], [place] [address]Dr. Yilan Pulliam CO2 [Moles/Vol] 28.6 mmol/L Normal 21.0-32.0 [facility] Comment on above: Performed By: #### C MP, HSTROPN, BNP ####[facility] [address] [place] [address]Dr. Garima Pulliam Creatinine [Mass/Vol] 0.72 mg/dL Normal 0.70-1.30 [facility] Comment on above: Performed By: #### C MP, HSTROPN, BNP ####[facility] Hermevyrog[address] [place] [address]Dr. Garima Pulliam EGFR-AF CITIZEN OF [place] >60 Normal >=60 [facility] Comment on above: Performed By: #### C MP, HSTROPN, BNP ####[facility] Xxqhmacyqr[address] [place] [address]Dr. Garima Pulliam EGFR-NON AF CITIZEN OF [place] >60 Normal >=60 [facility] Comment on above: Performed By: #### C MP, HSTROPN, BNP ####[facility] Fshejidgvy64[address] [place] [address]Dr. Garima Pulliam Globulin (S) [Mass/Vol] 2.5 g/dL Normal [facility] Comment on above: Performed By: #### C MP, HSTROPN, BNP ####[facility] Paepbajjrt[address] [place], [place] [address]Dr. Garima Pulliam Glucose [Mass/Vol] 114 mg/dL Critically high 74-106 [facility] Comment on above: Performed By: #### C MP, HSTROPN, BNP ####[facility] Ayvhmlhxqz[address] [place], [place] [address]Dr. Garima Pulliam Potassium [Moles/Vol] 4.1 mmol/L Normal 3.5-5.1 [facility] Comment on above: Performed By: #### C MP, HSTROPN, BNP ####[facility] Lnghjzstoa[address] [place], [place] [address]Dr. Garima Pulliam Protein [Mass/Vol] 6.2 g/dL Critically low 6.4-8.2 [facility] Comment on above: Performed By: #### C MP, HSTROPN, BNP ####[facility] Rwqrjtguzz8[address] [place], [place] [address]Dr. Yilan Pulliam Sodium [Moles/Vol] 137 mmol/L Normal 136-145 [facility] Comment on above: Performed By: #### C MP, HSTROPN, BNP ####[facility] Zhbxpzibte[address] [place] [address]Dr. Garima Pulliam Urea nitrogen [Mass/Vol] 13.0 mg/dL Normal 7.0-18.0 [facility] Comment on above: Performed By: #### C MP, HSTROPN, BNP ####[facility] Ntojiqeali[address] [place] [address]Dr. Garima Pulliam Urea nitrogen/Creatinine [Mass ratio] 18.1 mg/mg Normal [facility] Comment on above: Performed By: #### C MP, HSTROPN, BNP ####[facility] Gewngryunl[address] [place], [place] [address]Dr. Garima Pulliam TROPONIN, HIGH SENSITIVITYon 11-27-2022 HSTROP 11.8 pg/mL Normal 4.0-76.1 [facility] Comment on above: Result Comment: CUT- OFF POINTS HAVE BEEN ESTABLISHED BASED ON THE FOURTH UNIVERSAL DEFINITIONS OF MYOCARDIALINFARCTION. THE UPPER REFERENCE LIMIT (URL) OF TROPONIN, DEFINED THE 99TH PERCENTILE OFcTnI DISTRIBUTION IN A REFERENCE POPULATION, HAS BEEN CONFIRMED THE DECISION THRESHOLDFOR [place] DIAGNOSIS. Performed By: #### C MP, HSTROPN, BNP ####[facility] Zlyovusggy[address] [place], [place] [address]Dr. Garima Pulliam XR CHEST 1 Von 11-27-2022 XR CHEST 1 V Normal [facility] BNPon 11-20-2022 Natriuretic peptide B (Bld) [Mass/Vol] 73.0 pg/mL Normal <=900.0 [facility] Comment on above: Performed By: #### B MP, HSTROPN, BNP ####[facility] Mrpusffzhx417[address] [place], [place] [address]Dr. Garima Pulliam CBC AUTO DIFFon 11-20-2022 BASO # 0.0 103/ul Normal 0.0-0.1 [facility] Comment on above: Performed By: #### C BC ####[facility] Noojgaeexj[address] [place] [id number]. Garima Pulliam Basophils/100 WBC (Bld) 0.3 % Normal 0.2-2.0 [facility] Comment on above: Performed By: #### C BC ####[facility] Txtxmwutuq95[address] [place] [id number]. Garima Pulliam EO # 0.2 103/ul Normal 0.0-0.7 [facility] Comment on above: Performed By: #### C BC ####[facility] Bbfukdrtdw7072 [place] [address]Dr. Garima Pulliam Eosinophils/100 WBC (Bld) 2.1 % Normal 0.9-7.0 [facility] Comment on above: Performed By: #### C BC ####[facility] Onpqxwhfua78[address] [place], [place] [address]Dr. Garima Pulliam Erythrocyte distribution width (RBC) [Ratio] 13.2 % Normal 11.0-15.0 [facility] Comment on above: Performed By: #### C BC ####[facility] Dqlhurwxnl87[address] [place], [place] [address]Dr. Garima Pulliam Hematocrit (Bld) [Volume fraction] 43.4 % Normal 42.0-54.0 [facility] Comment on above: Performed By: #### C BC ####[facility] Sqdbnnhnky[address] [place], [place] [id number]. Garima Pulliam Hemoglobin (Bld) [Mass/Vol] 14.6 g/dL Normal 14.0-18.0 [facility] Comment on above: Performed By: #### C BC ####[facility] Simpkmnale[address] [place] [id number]. Garima Pulliam IG # 0.02 10e3/ul Normal 0.00-0.03 [facility] Comment on above: Performed By: #### C BC ####[facility] Yvraxgjdzv86[address] [place] [address]Dr. Garima Pulliam IG % 0.2 % Normal 0.0-0.5 [facility] Comment on above: Performed By: #### C BC ####[facility] Bhijsfjiib[address] [place] [id number]. Garima Heraclio LYMPH # 2.1 103/ul Normal 1.2-3.8 [facility] Comment on above: Performed By: #### C BC ####[facility] Ambtyqzcky3498 [place] [id number]. Garima Heraclio Lymphocytes/100 WBC (Bld) 19.2 % Critically low 20.5-60.0 [facility] Comment on above: Performed By: #### C BC ####[facility] Zbaivsyhhs7[address] [place] [id number]. Chapisrenu Pulliam MANUAL DIFF REQ NO Normal [facility] Comment on above: Performed By: #### C BC ####[facility] Vqgxktkkig3653 [place] [id number]. Garima Heraclio MCH (RBC) [Entitic mass] 30.4 pg Normal 25.9-34.0 [facility] Comment on above: Performed By: #### C BC ####[facility] Rscmmffmpl25[address] [place] [address]Dr. Garima Pulliam MCHC (RBC) [Mass/Vol] 33.6 g/dL Normal 29.9-35.2 [facility] Comment on above: Performed By: #### C BC ####[facility] Zpwnycfbcb65[address] [place] [id number]. Garima Heraclio MCV (RBC) [Entitic vol] 90.4 fL Normal 80.0-94.0 [facility] Comment on above: Performed By: #### C BC ####[facility] Pxnfbvnkzq28[address] [place] [id number]. Garima Heraclio MONO # 0.6 103/ul Normal 0.3-0.8 [facility] Comment on above: Performed By: #### C BC ####[facility] Kpdzgqcsfx8535 [place] [address]Dr. Garima Heraclio Monocytes/100 WBC (Bld) 5.8 % Normal 1.7-12.0 [facility] Comment on above: Performed By: #### C BC ####[facility] Mohqdivxky[address] [place], [place] [address]Yd. Garima Pulliam NEUT # 7.8 103/ul Critically high 1.4-6.5 [facility] Comment on above: Performed By: #### C BC ####[facility] Jrhzfctyvk9262 [place] [id number]. Garima Pulliam Neutrophils/100 WBC (Bld) 72.4 % Normal 43.0-75.0 [facility] Comment on above: Performed By: #### C BC ####[facility] Fvhxvvfrgx2832 [place] [id number]. Garima Pulliam Platelet mean volume (Bld) [Entitic vol] 8.7 fL Critically low 9.5-13.5 [facility] Comment on above: Performed By: #### C BC ####[facility] Kwflklxnpb39[address] [place] [id number]. Garima Pulliam PLT 184 103/ul Normal 150-450 [facility] Comment on above: Performed By: #### C BC ####[facility] Lcuvjdpycy45[address] [place], [place] [address]Xt. Garima Pulliam RBC 4.80 106/ul Normal 4.70-6.10 [facility] Comment on above: Performed By: #### C BC ####[facility] Zmydljevub5824 [place] [id number]. Garima Pulliam WBC 10.8 103/ul Normal 4.0-11.0 [facility] Comment on above: Performed By: #### C BC ####[facility] Elihuhtliv6184 [place] [id number]. Garima Pulliam [facility]24 SARS-CoV-2 (COVID-19) RNA MARIE+probe Ql [...] for this test is supported by the [place] of Health and Human Service's declaration that [...] #### C VDTBH ####[facility] Rqgehiqduy[address] [place], [place] [address]Dr. Garima Pulliam INFLUENZA A AND B AGon 11-20 [facility] SEE BELOW Normal [facility] Comment on above: Result Comment: Nega tive for Flu A protein angiten. Infection due to Flu A cannot be ruled out. Flu A angiten in the sample may be below the detection limit of the test. Performed By: #### I NFLUAB ####[facility] Iatrpvihzu[address] [place], [place] [address]Dr. Garima Pulliam INFLUBNEGH SEE BELOW Normal [facility] Comment on above: Result Comment: Nega tive for Flu B protein antigen. Infection due to Flu B cannot be ruled out. Flu B antigen in the sample may be below the detection limit of the test. Performed By: #### I NFLUAB ####[facility] Xmstmkxydf[address] [place], [place] [address]Dr. Garima Pulliam INFLUENZA A AG Negative Normal NEGATIVE SEE COMMENT [facility] Comment on above: Performed By: #### I NFLUAB ####[facility] Tjyrwxrubg[address] [place], [place] [address]Dr. Garima [facility] INFLUENZA B AG Negative Normal NEGATIVE SEE COMMENT [facility] Comment on above: Performed By: #### I NFLUAB ####[facility] Pmlusoamuy2925[address] [place], [place] [address]Dr. Garima Pulliam PROF CHEM 8 (BAS METB)on Anion gap [Moles/Vol] 8.2 mmol/L Normal [facility] Comment on above: Performed By: #### B MP, HSTROPN, BNP ####[facility] Qzwzizegpa7255 [place] [address]Dr. Garima Pulliam Calcium [Mass/Vol] 8.7 mg/dL Normal 8.5-10.1 [facility] Comment on above: Performed By: #### B MP, HSTROPN, BNP ####[facility] Aduwtmidbh7566 [place] [address]Dr. Garima Pulliam Chloride [Moles/Vol] 103 mmol/L Normal 98-107 [facility] Comment on above: Performed By: #### B MP, HSTROPN, BNP ####[facility] Uiqslgjubv[address] [place], [place] [address]Dr. Garima Pulliam CO2 [Moles/Vol] 29.4 mmol/L Normal 21.0-32.0 [facility] Comment on above: Performed By: #### B MP, HSTROPN, BNP ####[facility] Vhffhusxpw[address] [place], [place] [address]Dr. Garima Pulliam Creatinine [Mass/Vol] 0.69 mg/dL Critically low 0.70-1.30 [facility] Comment on above: Performed By: #### B MP, HSTROPN, BNP ####[facility] Lhcyhsfyey14[address] [place] [address]Dr. Garima Pulliam EGFR-AF CITIZEN OF [place] >60 Normal >=60 [facility] Comment on above: Performed By: #### B MP, HSTROPN, BNP ####[facility] Fjusioojaw[address] [place], [place] [address]Dr. Garima Pulliam EGFR-NON AF CITIZEN OF [place] >60 Normal >=60 [facility] Comment on above: Performed By: #### B MP, HSTROPN, BNP ####[facility] Fvxbrvryfm5118 [place] [address]Dr. Garima Pulliam Glucose [Mass/Vol] 209 mg/dL Critically high 74-106 [facility] Comment on above: Performed By: #### B MP, HSTROPN, BNP ####[facility] Bhznisbkql8075 [place] [address]Dr. Garima Pulliam Potassium [Moles/Vol] 3.6 mmol/L Normal 3.5-5.1 [facility] Comment on above: Performed By: #### B MP, HSTROPN, BNP ####[facility] Zziplzjufk7270 [place] [address]Dr. Garima Pulliam Sodium [Moles/Vol] 137 mmol/L Normal 136-145 [facility] Comment on above: Performed By: #### B MP, HSTROPN, BNP ####[facility] Pewwrphkgu6581 [place] [address]Dr. Garima Pulliam Urea nitrogen [Mass/Vol] 11.0 mg/dL Normal 7.0-18.0 [facility] Comment on above: Performed By: #### B MP, HSTROPN, BNP ####[facility] Qrvacpdnbj1233 [place] [address]Dr. Garima Pulliam Urea nitrogen/Creatinine [Mass ratio] 15.9 mg/mg Normal [facility] Comment on above: Performed By: #### B MP, HSTROPN, BNP ####[facility] Bkrhlmetup6[address] [place] [address]Dr. Garima Pulliam TROPONIN, HIGH SENSITIVITYon 11-20-2022 HSTROP 8.7 pg/mL Normal 4.0-76.1 [facility] Comment on above: Result Comment: CUT- OFF POINTS HAVE BEEN ESTABLISHED BASED ON THE FOURTH UNIVERSAL DEFINITIONS OF MYOCARDIALINFARCTION. THE UPPER REFERENCE LIMIT (URL) OF TROPONIN, DEFINED THE 99TH PERCENTILE OFcTnI DISTRIBUTION IN A REFERENCE POPULATION, HAS BEEN CONFIRMED THE DECISION THRESHOLDFOR [place] DIAGNOSIS. Performed By: #### B MP, HSTROPN, BNP ####[facility] Zqvsqqhzpt37[address] [place] [address]Dr. Garima Pulliam XR CHEST 1 Von 11-20-2022 XR CHEST 1 V Normal [facility] XR CHEST 1 Von 10-02-2022 XR CHEST 1 V Normal [facility] BNPon 09-29-2022 Natriuretic peptide B (Bld) [Mass/Vol] 107.0 pg/mL Normal <=900.0 [facility] Comment on above: Performed By: #### C MP, BNP, CMADM ####[facility] Cdyuwdozqb00[address] [place] [address]Dr. Garima Pulliam CARDIAC NASH ADMITon 022 CK [Catalytic activity/Vol] 190 U/L Normal 39-308 [facility] Comment on above: Performed By: #### C MP, BNP, CMADM ####[facility] Vikgvezuub6[address] [place] [address]Dr. Garima Heraclio CK.MB [Mass/Vol] 11.11 ng/mL Critically high <=3.60 [facility] Comment on above: Performed By: #### C MP, BNP, CMADM ####[facility] Jqrqftbkvw1634 [place] [address]Dr. Garima Pulliam HSTROP 11.8 pg/mL Normal 4.0-76.1 [...] MP, BNP, CMADM ####[facility] Ginqbqcpfb8[address] [place] [address]Dr. Garima Pulliam DORIS 133 ng/mL Critically high 16-96 [facility] Comment on above: Performed By: #### C MP, BNP, CMADM ####[facility] Takckuoiat[address] [place] [address]Dr. Garima Heraclio CBC AUTO DIFFon 09-29-2022 BASO # 0.0 103/ul Normal 0.0-0.1 [facility] Comment on above: Performed By: #### C BC ####[facility] Tvkcfnnkpn6629 [place] [address]Dr. Garima Heraclio Basophils/100 WBC (Bld) 0.2 % Normal 0.2-2.0 [facility] Comment on above: Performed By: #### C BC ####[facility] Lajfugivdd8255 [place] [id number]. Garima Pulliam EO # 0.1 103/ul Normal 0.0-0.7 [facility] Comment on above: Performed By: #### C BC ####[facility] Qonpfebwdb8178 [place] [id number]. Garima Pulliam Eosinophils/100 WBC (Bld) 1.4 % Normal 0.9-7.0 [facility] Comment on above: Performed By: #### C BC ####[facility] Srxfbzhlvq[address] [place], [place] [address]Dr. Garima Pulliam Erythrocyte distribution width (RBC) [Ratio] 13.7 % Normal 11.0-15.0 [facility] Comment on above: Performed By: #### C BC ####[facility] Iwbgjuimtm[address] [place], [place] [address]Dr. Garima Pulliam Hematocrit (Bld) [Volume fraction] 45.4 % Normal 42.0-54.0 [facility] Comment on above: Performed By: #### C BC ####[facility] Zgekzrmggs[address] [place], [place] [address]Dr. Garima Pulliam Hemoglobin (Bld) [Mass/Vol] 14.8 g/dL Normal 14.0-18.0 [facility] Comment on above: Performed By: #### C BC ####[facility] Etahimkkpl[address] [place], [place] [address]Dr. Garima Pulliam IG # 0.04 10e3/ul Critically high 0.00-0.03 [facility] Comment on above: Performed By: #### C BC ####[facility] Scscbndbdu47[address] [place], [place] [address]Dr. Garima Pulliam IG % 0.5 % Normal 0.0-0.5 [facility] Comment on above: Performed By: #### C BC ####[facility] Sjdvmyhahp8[address] [place], [place] [address]Dr. Garima Pulliam LYMPH # 1.1 103/ul Critically low 1.2-3.8 [facility] Comment on above: Performed By: #### C BC ####[facility] Szzfxvqzvv2037 [place] [id number]. Garima Pulliam Lymphocytes/100 WBC (Bld) 12.7 % Critically low 20.5-60.0 [facility] Comment on above: Performed By: #### C BC ####[facility] Jkckfkltvv7480 [place] [id number]. Chapisrenu Pulliam MANUAL DIFF REQ NO Normal [facility] Comment on above: Performed By: #### C BC ####[facility] Z[address]yfwswcs[address] [place], [place] [id number]. Garima Heraclio MCH (RBC) [Entitic mass] 30.0 pg Normal 25.9-34.0 [facility] Comment on above: Performed By: #### C BC ####[facility] Efmubvgwyu[address] [place], [place] [address]Dr. Garima Heraclio MCHC (RBC) [Mass/Vol] 32.6 g/dL Normal 29.9-35.2 [facility] Comment on above: Performed By: #### C BC ####[facility] Dwgauntmbw[address] [place], [place] [id number]. Garima Heraclio MCV (RBC) [Entitic vol] 91.9 fL Normal 80.0-94.0 [facility] Comment on above: Performed By: #### C BC ####[facility] L[address]xvsqgvwl[address] [place], [place] [address]Dr. Garima Pulliam MONO # 0.4 103/ul Normal 0.3-0.8 [facility] Comment on above: Performed By: #### C BC ####[facility] Uxqetgfgoy[address] [place], [place] [id number]. Chapisrenu Pulliam Monocytes/100 WBC (Bld) 4.8 % Normal 1.7-12.0 [facility] Comment on above: Performed By: #### C BC ####[facility] Awhhwwigzm[address] [place], [place] [address]Dr. Garima Pulliam NEUT # 7.1 103/ul Critically high 1.4-6.5 [facility] Comment on above: Performed By: #### C BC ####[facility] Hfkmehaexb8818 [place], [place] [address]Is. Garima Pulliam Neutrophils/100 WBC (Bld) 80.4 % Critically high 43.0-75.0 [facility] Comment on above: Performed By: #### C BC ####[facility] Izcooyaijl1693 [place] [id number]. Garima Pulliam Platelet mean volume (Bld) [Entitic vol] 9.1 fL Critically low 9.5-13.5 [facility] Comment on above: Performed By: #### C BC ####[facility] Fzlftwofpz7681 [place] [id number]. Garima Pulliam PLT 200 103/ul Normal 150-450 [facility] Comment on above: Performed By: #### C BC ####[facility] Mxtrlsaikg4564 [place] [id number]. Garmia Pulliam RBC 4.94 106/ul Normal 4.70-6.10 [facility] Comment on above: Performed By: #### C BC ####[facility] Owxlofuoue4978 [place] [id number]. Garima Pulliam WBC 8.9 103/ul Normal 4.0-11.0 [facility] Comment on above: Performed By: #### C BC ####[facility] Xckeyzyewt3302 [place] [id number]. Garima Pulliam Covid-19 PCR (CVDTB)on SARS-CoV-2 (COVID-19) [...] for this test is supported by the [place] of Health and Human Service's declaration that [...] #### C VDTBH ####[facility] Hoxuqyjucu8109 [place] [address]Dr. Garima Pulliam LACTATE/LACTIC ACIDon 2021 Lactate [Moles/Vol] 1.7 mmol/L Normal 0.4-1.9 [facility] Comment on above: Performed By: #### L ACT ####[facility] Lewbsaecfm[address] [place], [place] [address]Dr. Garima Pulliam PROF 14(COMP METB)on 022 Albumin [Mass/Vol] 3.8 g/dL Normal 3.4-5.0 [facility] Comment on above: Performed By: #### C MP, BNP, CMADM ####[facility] Ktvebavvwx[address] [place], [place] [address]Dr. Garima Pulliam Albumin/Globulin [Mass ratio] 1.5 {ratio} Normal [facility] Comment on above: Performed By: #### C MP, BNP, CMADM ####[facility] Jbbnmdntgv3368 [place] [address]Dr. Garima Pulliam ALP [Catalytic activity/Vol] 62 U/L Normal 46-116 [facility] Comment on above: Performed By: #### C MP, BNP, CMADM ####[facility] Ymdxwsxvjy9335 [place] [address]Dr. Garima Pulliam ALT [Catalytic activity/Vol] 37 U/L Normal 16-63 [facility] Comment on above: Performed By: #### C MP, BNP, CMADM ####[facility] Esfctopdar0062 [place] [address]Dr. Garima Pulliam Anion gap [Moles/Vol] 8.0 mmol/L Normal [facility] Comment on above: Performed By: #### C MP, BNP, CMADM ####[facility] Gmiirbxlbf1433 [place] [address]Dr. Garima Pulliam AST [Catalytic activity/Vol] 20 U/L Normal 15-37 [facility] Comment on above: Performed By: #### C MP, BNP, CMADM ####[facility] Cumoeyyiju6768 [place] [address]Dr. Garima Pulliam Bilirubin [Mass/Vol] 0.6 mg/dL Normal 0.2-1.0 [facility] Comment on above: Performed By: #### C MP, BNP, CMADM ####[facility] Qxtischyze2119 [place] [address]Dr. Garima Pulliam Calcium [Mass/Vol] 9.1 mg/dL Normal 8.5-10.1 [facility] Comment on above: Performed By: #### C MP, BNP, CMADM ####[facility] Krjdfmzhik[address] [place], [place] [address]Dr. Garima Pulliam Chloride [Moles/Vol] 103 mmol/L Normal 98-107 [facility] Comment on above: Performed By: #### C MP, BNP, CMADM ####[facility] [address]oalywpwrx[address] [place], [place] [address]Dr. Garima Pulliam CO2 [Moles/Vol] 31.8 mmol/L Normal 21.0-32.0 [facility] Comment on above: Performed By: #### C MP, BNP, CMADM ####[facility] Oevhtsrvxz[address] [place], [place] [address]Dr. Garima Pulliam Creatinine [Mass/Vol] 0.63 mg/dL Critically low 0.70-1.30 [facility] Comment on above: Performed By: #### C MP, BNP, CMADM ####[facility] Xtgicnlrsv[address] [place], [place] [address]Dr. Garima Pulliam EGFR-AF CITIZEN OF [place] >60 Normal >=60 [facility] Comment on above: Performed By: #### C MP, BNP, CMADM ####[facility] Evdcuacfpv[address] [place], [place] [address]Dr. Garima Pulliam EGFR-NON AF CITIZEN OF [place] >60 Normal >=60 [facility] [facility] Comment on above: Performed By: #### C MP, BNP, CMADM ####[facility] [address]bumiucmwx[address] [place] [address]Dr. Garima Pulliam Globulin (S) [Mass/Vol] 2.6 g/dL Normal [facility] Comment on above: Performed By: #### C MP, BNP, CMADM ####[facility] Lijcadqxhf[address] [place] [address]Dr. Garima Pulliam Glucose [Mass/Vol] 103 mg/dL Normal 74-106 [facility] Comment on above: Performed By: #### C MP, BNP, CMADM ####[facility] Qsfajxmyif8[address] [place] [address]Dr. Garima Pulliam Potassium [Moles/Vol] 3.8 mmol/L Normal 3.5-5.1 [facility] Comment on above: Performed By: #### C MP, BNP, CMADM ####[facility] Oxbrtaibpc45[address] [place] [address]Dr. Garima Pulliam Protein [Mass/Vol] 6.4 g/dL Normal 6.4-8.2 [facility] Comment on above: Performed By: #### C MP, BNP, CMADM ####[facility] Vmleszdlez[address] [place] [address]Dr. Garima Pulliam Sodium [Moles/Vol] 139 mmol/L Normal 136-145 [facility] Comment on above: Performed By: #### C MP, BNP, CMADM ####[facility] Agxmejbxrl9[address] [place] [address]Dr. Garima Pulliam Urea nitrogen [Mass/Vol] 7.0 mg/dL Normal 7.0-18.0 [facility] Comment on above: Performed By: #### C MP, BNP, CMADM ####[facility] Lomcsdpsee[address] [place] [address]Dr. Garima Pulliam Urea nitrogen/Creatinine [Mass ratio] 11.1 mg/mg Normal [facility] Comment on above: Performed By: #### C MP, BNP, CMADM ####[facility] Fylesqbbfd[address] [place] [address]Dr. Garima Pulliam PROTIMEon 09-29-2022 INR Coag (PPP) [Relative time] 1.14 {INR} Normal [facility] Comment on above: Performed By: #### P T, PTT ####[facility] Quyaeobcws[address] [place], [place] [address]Dr. Garima Pulliam INR GUIDELINES SEE BELOW Normal [facility] Comment on above: Result Comment: WESLEY RED INR: 2.0 - 3.0 CONDITIONS NOT LISTED BELOW 2.5 - 3.5 FOR PROSTHETIC HEART VALVE REPLACEMENT 2.5 - 3.5 RECURRENT THROMBOSIS Performed By: #### P T, PTT ####[facility] Xzpusbdjde57[address] [place], [place] [address]Dr. Garima Pulliam PT Coag (PPP) [Time] 12.2 s Critically high 9.0-11.6 [facility] Comment on above: Performed By: #### P T, PTT ####[facility] Fatppxvodd558[address] [place], [place] [address]Dr. Garima Pulliam PTTon 09-29-2022 aPTT Coag (Bld) [Time] 29.3 s Normal 22.3-36.2 [facility] Comment on above: Performed By: #### P T, PTT ####[facility] Atevgwxxoh153[address] [place], [place] [address]Dr. Garima Pulliam XR CHEST 1 Von 09-29-2022 XR CHEST 1 V Normal [facility] CBC AUTO DIFFon 09-26-2022 BASO # 0.0 103/ul Normal 0.0-0.1 [facility] Comment on above: Performed By: #### C BC ####[facility] Xatjmgtpud8[address] [place], [place] [address]Dr. Garima Pulliam Basophils/100 WBC (Bld) 0.2 % Normal 0.2-2.0 [facility] Comment on above: Performed By: #### C BC ####[facility] Psynlmmdgz7217[address] [place], [place] [address]Dr. Garima Pulliam EO # 0.1 103/ul Normal 0.0-0.7 [facility] Comment on above: Performed By: #### C BC ####[facility] Kidafynobm6705[address] [place], [place] [address]Dr. Garima Pulliam Eosinophils/100 WBC (Bld) 1.0 % Normal 0.9-7.0 [facility] Comment on above: Performed By: #### C BC ####[facility] Fnmuqbomtv69[address] [place], [place] [address]Dr. Garima Pulliam Erythrocyte distribution width (RBC) [Ratio] 13.4 % Normal 11.0-15.0 [facility] Comment on above: Performed By: #### C BC ####[facility] Lfzrrjqabg9622[address] [place], [place] [address]Dr. Garima Pulliam Hematocrit (Bld) [Volume fraction] 46.3 % Normal 42.0-54.0 [facility] Comment on above: Performed By: #### C BC ####[facility] Rhjxyjybhu473[address] [place], [place] [address]Dr. Garima Pulliam Hemoglobin (Bld) [Mass/Vol] 15.3 g/dL Normal 14.0-18.0 [facility] Comment on above: Performed By: #### C BC ####[facility] Yvxwonmvrh988[address] [place], [place] [address]Dr. Garima Pulliam IG # 0.05 10e3/ul Critically high 0.00-0.03 [facility] Comment on above: Performed By: #### C BC ####[facility] Saionxhxvr8022[address] [place], [place] [address]Dr. Garima Pulliam IG % 0.4 % Normal 0.0-0.5 [facility] Comment on above: Performed By: #### C BC ####[facility] Wlvlnztkha135[address] [place], [place] [address]Dr. Garima Pulliam LYMPH # 1.7 103/ul Normal 1.2-3.8 [facility] Comment on above: Performed By: #### C BC ####[facility] Txplafwkej67[address] [place], [place] [address]Dr. Garima Pulliam Lymphocytes/100 WBC (Bld) 12.7 % Critically low 20.5-60.0 [facility] Comment on above: Performed By: #### C BC ####[facility] Zjnbjlppoi76[address] [place] [address]DrAdalberto Pulliam MANUAL DIFF REQ NO Normal [facility] Comment on above: Performed By: #### C BC ####[facility] Dqpwqqwpel9398 [place] [address]Dr. Garima Pulliam MCH (RBC) [Entitic mass] 30.1 pg Normal 25.9-34.0 [facility] Comment on above: Performed By: #### C BC ####[facility] Cvuictbsoj4300[address] [place], [place] [address]Dr. Garima Pulliam MCHC (RBC) [Mass/Vol] 33.0 g/dL Normal 29.9-35.2 [facility] Comment on above: Performed By: #### C BC ####[facility] Nczocohxuu[address] [place], [place] [address]DrAdalberto Pulliam MCV (RBC) [Entitic vol] 91.1 fL Normal 80.0-94.0 [facility] Comment on above: Performed By: #### C BC ####[facility] Wllheddkcl05[address] [place], [place] [address]DrAdalberto Pulliam MONO # 0.9 103/ul Critically high 0.3-0.8 [facility] Comment on above: Performed By: #### C BC ####[facility] Drzvnihwza040[address] [place], [place] [address]DrAdalberto Pulliam Monocytes/100 WBC (Bld) 7.0 % Normal 1.7-12.0 [facility] Comment on above: Performed By: #### C BC ####[facility] Aiqcezrirx050[address] [place], [place] [address]DrAdalberto Pulliam NEUT # 10.4 103/ul Critically high 1.4-6.5 [facility] Comment on above: Performed By: #### C BC ####[facility] Yplzonelmb9[address] [place], [place] [address]DrAdalberto Pulliam Neutrophils/100 WBC (Bld) 78.7 % Critically high 43.0-75.0 [facility] Comment on above: Performed By: #### C BC ####[facility] Vmkvyfbexg8536 [place] [address]Dr. Garima Pulliam Platelet mean volume (Bld) [Entitic vol] 8.9 fL Critically low 9.5-13.5 [facility] Comment on above: Performed By: #### C BC ####[facility] Ymjjbwzpzo3417 [place] [address]Dr. Garima Pulliam PLT 195 103/ul Normal 150-450 [facility] Comment on above: Performed By: #### C BC ####[facility] Gjarfbficm7[address] [place], [place] [address]Dr. Garima Pulliam RBC 5.08 106/ul Normal 4.70-6.10 [facility] Comment on above: Performed By: #### C BC ####[facility] Uqkxvxwdpp411[address] [place], [place] [address]Dr. Garima Pulliam WBC 13.2 103/ul Critically high 4.0-11.0 [facility] Comment on above: Performed By: #### C BC ####[facility] Rzeflvmbpe722[address] [place], [place] [address]Dr. Garima Pulliam PROF 14(COMP METB)on 022 Albumin [Mass/Vol] 3.5 g/dL Normal 3.4-5.0 [facility] Comment on above: Performed By: #### C DAVID HSTROPN ####[facility] Tcnneskuao[address] [place] [address]Dr. Garima Pulliam Albumin/Globulin [Mass ratio] 1.2 {ratio} Normal [facility] Comment on above: Performed By: #### C RAFAT HERNANDEZTROPN ####[facility] Bqzwwtterc47[address] [place] [address]Dr. Garima Pulliam ALP [Catalytic activity/Vol] 71 U/L Normal 46-116 [facility] Comment on above: Performed By: #### C DVAID HSTROPN ####[facility] Rjbfrefbad6804 [place] [address]Dr. Garima Pulliam ALT [Catalytic activity/Vol] 37 U/L Normal 16-63 [facility] Comment on above: Performed By: #### C DAVID, HSTROPN ####[facility] Xpbpfqwiav5417 [place] [address]Dr. Garima Pulliam Anion gap [Moles/Vol] 4.8 mmol/L Normal [facility] Comment on above: Performed By: #### C DAVID, HSTROPN ####[facility] Vfjjuasshb7[address] [place], [place] [address]Dr. Garima Pulliam AST [Catalytic activity/Vol] 21 U/L Normal 15-37 [facility] Comment on above: Performed By: #### C DAVID, HSTROPN ####[facility] Gdlxcekwcd84[address] [place], [place] [address]Dr. Garima Pulliam Bilirubin [Mass/Vol] 0.3 mg/dL Normal 0.2-1.0 [facility] Comment on above: Performed By: #### C DAVID, HSTROPN ####[facility] Zuuqucsumh5697 [place] [address]Dr. Garima Pulliam Calcium [Mass/Vol] 8.9 mg/dL Normal 8.5-10.1 [facility] Comment on above: Performed By: #### C DAVID, HSTROPN ####[facility] Fccbtddzuz6120 [place] [address]Dr. Garima Pulliam Chloride [Moles/Vol] 106 mmol/L Normal 98-107 [facility] Comment on above: Performed By: #### C DAVID, HSTROPN ####[facility] Xkjbcwucsw0287 [place] [address]Dr. Garima Pulliam CO2 [Moles/Vol] 29.8 mmol/L Normal 21.0-32.0 [facility] Comment on above: Performed By: #### C DAVID, HSTROPN ####[facility] Fsagjhiaqi8287 [place] [address]Dr. Garima Pulliam Creatinine [Mass/Vol] 0.68 mg/dL Critically low 0.70-1.30 [facility] Comment on above: Performed By: #### C MP, HSTROPN ####[facility] Megrdwkrbu7[address] [place] [address]Dr. Garima Pulliam EGFR-AF CITIZEN OF [place] >60 Normal >=60 [facility] Comment on above: Performed By: #### C MP, HSTROPN ####[facility] Uzlnqbfofe3453 [place] [address]Dr. Chapislan Pulliam EGFR-NON AF CITIZEN OF [place] >60 Normal >=60 [facility] Comment on above: Performed By: #### C MP, HSTROPN ####[facility] Bcezuyegxp[address] [place] [address]Dr. Garima Pulliam Globulin (S) [Mass/Vol] 2.8 g/dL Normal [facility] Comment on above: Performed By: #### C MP, HSTROPN ####[facility] Lxogjnjoaq1214 [place] [address]Dr. Garima Pulliam Glucose [Mass/Vol] 133 mg/dL Critically high 74-106 [facility] Comment on above: Performed By: #### C MP, HSTROPN ####[facility] Ifgisyonec9274 [place] [address]Dr. Chapisrenu Pulliam Potassium [Moles/Vol] 3.6 mmol/L Normal 3.5-5.1 [facility] Comment on above: Performed By: #### C MP, HSTROPN ####[facility] Pppouifuwr9056 [place] [address]Dr. Chapisrenu Pulliam Protein [Mass/Vol] 6.3 g/dL Critically low 6.4-8.2 [facility] Comment on above: Performed By: #### C MP, HSTROPN ####[facility] Ncwwwlcacq[address] [place], [place] [address]Dr. Chapisrenu Pulliam Sodium [Moles/Vol] 137 mmol/L Normal 136-145 [facility] Comment on above: Performed By: #### C MP, HSTROPN ####[facility] Mednnfnwcl998[address] [place], [place] [address]Dr. Garima Pulliam Urea nitrogen [Mass/Vol] 15.0 mg/dL Normal 7.0-18.0 [facility] Comment on above: Performed By: #### C DAVID HSTROPN ####[facility] Mscinazlsm350[address] [place] [address]Dr. Chapisrenu Pulliam Urea nitrogen/Creatinine [Mass ratio] 22.1 mg/mg Normal [facility] Comment on above: Performed By: #### C DAVID HSTROPN ####[facility] Uzprfyruzb3185 [place] [address]Dr. Garima Heraclio TROPONIN, HIGH SENSITIVITYon 09-26-2022 HSTROP [...] THRESHOLDFOR [place] DIAGNOSIS. Performed By: #### C DAVID HSTROPN ####[facility] Osmnpiszuu1199 [place] [address]Dr. Chapisrenu Pulliam XR CHEST 1 Von 09-26-2022 XR CHEST 1 V Normal [facility] XR CHEST 1 Von 09-16-2022 XR CHEST 1 V Normal [facility] CBC AUTO DIFFon 09-15-2022 BASO # 0.0 103/ul Normal 0.0-0.1 [facility] Comment on above: Performed By: #### C BC ####[facility] Obfhtoxqwc5537 [place] [address]Dr. Garima Heraclio Basophils/100 WBC (Bld) 0.1 % Critically low 0.2-2.0 [facility] Comment on above: Performed By: #### C BC ####[facility] Kdxktntpaq0100 [place] [address]Dr. Garima Pulliam EO # 0.0 103/ul Normal 0.0-0.7 [facility] Comment on above: Performed By: #### C BC ####[facility] Ldbizcasea8577 [place] [address]Dr. Garima Pulliam Eosinophils/100 WBC (Bld) 0.1 % Critically low 0.9-7.0 [facility] Comment on above: Performed By: #### C BC ####[facility] Bfologqxsg0746 [place] [address]Dr. Garima Pulliam Erythrocyte distribution width (RBC) [Ratio] 14.1 % Normal 11.0-15.0 [facility] Comment on above: Performed By: #### C BC ####[facility] Kphwzmizbx494[address] [place], [place] [address]Dr. Garima Pulliam Hematocrit (Bld) [Volume fraction] 46.1 % Normal 42.0-54.0 [facility] Comment on above: Performed By: #### C BC ####[facility] Badzmsskwd95[address] [place], [place] [address]Dr. Garima Pulliam Hemoglobin (Bld) [Mass/Vol] 15.0 g/dL Normal 14.0-18.0 [facility] Comment on above: Performed By: #### C BC ####[facility] Ofscfxmmaw[address] [place], [place] [address]Dr. Garima Pulliam IG # 0.03 10e3/ul Normal 0.00-0.03 [facility] Comment on above: Performed By: #### C BC ####[facility] Qpcuebpmer95[address] [place], [place] [address]Dr. Garima Pulliam IG % 0.3 % Normal 0.0-0.5 [facility] Comment on above: Performed By: #### C BC ####[facility] Qgofbrdtui1623[address] [place], [place] [address]Dr. Garima Pulliam LYMPH # 0.6 103/ul Critically low 1.2-3.8 [facility] Comment on above: Performed By: #### C BC ####[facility] Xgjuqptsjg14[address] [place], [place] [address]Dr. Garima Pulliam Lymphocytes/100 WBC (Bld) 5.8 % Critically low 20.5-60.0 [facility] Comment on above: Performed By: #### C BC ####[facility] Pcrripzqlo77[address] [place] [id number]. Garima Pulliam MANUAL DIFF REQ NO Normal [facility] Comment on above: Performed By: #### C BC ####[facility] Gkyyjvqadk7[address] [place] [id number]. Garima Pulliam MCH (RBC) [Entitic mass] 30.2 pg Normal 25.9-34.0 [facility] Comment on above: Performed By: #### C BC ####[facility] Dkfrcwryyu2360 [place] [address]Dr. Garima Pulliam MCHC (RBC) [Mass/Vol] 32.5 g/dL Normal 29.9-35.2 [facility] Comment on above: Performed By: #### C BC ####[facility] Ykwnpkhtdo7598 [place] [address]Dr. Garima Pulliam MCV (RBC) [Entitic vol] 92.8 fL Normal 80.0-94.0 [facility] Comment on above: Performed By: #### C BC ####[facility] Hsyjrmbbpk9393 [place] [address]Dr. Garima Heraclio MONO # 0.3 103/ul Normal 0.3-0.8 [facility] Comment on above: Performed By: #### C BC ####[facility] Fbhdlabjjv0123 [place] [id number]. Garima Heraclio Monocytes/100 WBC (Bld) 3.2 % Normal 1.7-12.0 [facility] Comment on above: Performed By: #### C BC ####[facility] Obagjaeovh39[address] [place] [id number]. Garima Pulliam NEUT # 9.8 103/ul Critically high 1.4-6.5 [facility] Comment on above: Performed By: #### C BC ####[facility] Lsftuadcgd2930 [place] [id number]. Garima Pulliam Neutrophils/100 WBC (Bld) 90.5 % Critically high 43.0-75.0 [facility] Comment on above: Performed By: #### C BC ####[facility] Agjyaxdmec4942 [place] [id number]. Garima Pulliam Platelet mean volume (Bld) [Entitic vol] 9.4 fL Critically low 9.5-13.5 [facility] Comment on above: Performed By: #### C BC ####[facility] Zcinxdgvpl8586 [place] [id number]. Garima Pulliam PLT 208 103/ul Normal 150-450 [facility] Comment on above: Performed By: #### C BC ####[facility] Zpurutcjhe6097 [place] [address]Dr. Garima Pulliam RBC 4.97 106/ul Normal 4.70-6.10 [facility] Comment on above: Performed By: #### C BC ####[facility] Wtxmxxjtfb5280 [place] [address]Dr. Garima Pulliam WBC 10.8 103/ul Normal 4.0-11.0 [facility] Comment on above: Performed By: #### C BC ####[facility] Arahfgjyfm1265 [place] [address]Dr. Garima Pulliam PROF 14(COMP METB)on 022 Albumin [Mass/Vol] 4.0 g/dL Normal 3.4-5.0 [facility] Comment on above: Performed By: #### C MP ####[facility] Bwifnfvfal1338 [place] [address]Dr. Garima Pulliam Albumin/Globulin [Mass ratio] 1.5 {ratio} Normal [facility] Comment on above: Performed By: #### C MP ####[facility] Xuwvrcipuq8535 [place] [address]Dr. Garima Pulliam ALP [Catalytic activity/Vol] 73 U/L Normal 46-116 [facility] Comment on above: Performed By: #### C MP ####[facility] Kqbceajmon9505 [place] [address]Dr. Garima Pulliam ALT [Catalytic activity/Vol] 42 U/L Normal 16-63 [facility] Comment on above: Performed By: #### C MP ####[facility] Windhfubng6925 [place] [address]Dr. Garima Pulliam Anion gap [Moles/Vol] 9.1 mmol/L Normal [facility] Comment on above: Performed By: #### C MP ####[facility] Doqbkknxlj[address] [place], [place] [address]Dr. Garima Pulliam AST [Catalytic activity/Vol] 28 U/L Normal 15-37 [facility] Comment on above: Performed By: #### C MP ####[facility] Gmkgmqxqqu[address] [place], [place] [address]Dr. Garima Pulliam Bilirubin [Mass/Vol] 0.6 mg/dL Normal 0.2-1.0 [facility] Comment on above: Performed By: #### C MP ####[facility] Vskvzqkifx[address] [place], [place] [address]Dr. Garima Pulliam Calcium [Mass/Vol] 8.6 mg/dL Normal 8.5-10.1 [facility] Comment on above: Performed By: #### C MP ####[facility] Xxmcczleoh9034[address] [place], [place] [address]Dr. Garima Pulliam Chloride [Moles/Vol] 105 mmol/L Normal 98-107 [facility] Comment on above: Performed By: #### C MP ####[facility] Gbpkbaytoh60[address] [place], [place] [address]Dr. Garima Pulliam CO2 [Moles/Vol] 28.5 mmol/L Normal 21.0-32.0 [facility] Comment on above: Performed By: #### C MP ####[facility] Hdjpxkptzl47[address] [place], [place] [address]Dr. Garima Heraclio Creatinine [Mass/Vol] 0.78 mg/dL Normal 0.70-1.30 [facility] Comment on above: Performed By: #### C MP ####[facility] Hiazvawapo[address] [place], [place] [address]Dr. Chapisrenu Heraclio EGFR-AF CITIZEN OF [place] >60 Normal >=60 [facility] Comment on above: Performed By: #### C MP ####[facility] Anitpwopwi43[address] [place], [place] [address]Dr. Garima Pulliam EGFR-NON AF CITIZEN OF [place] >60 Normal >=60 [facility] Comment on above: Performed By: #### C MP ####[facility] Wkqeuzuclm8106 [place] [address]Dr. Garima Pulliam Globulin (S) [Mass/Vol] 2.7 g/dL Normal [facility] Comment on above: Performed By: #### C MP ####[facility] Uihecxujdh5289 [place] [address]Dr. Garima Pulliam Glucose [Mass/Vol] 220 mg/dL Critically high 74-106 [facility] Comment on above: Performed By: #### C MP ####[facility] Rvrtzforrp0437 [place] [address]Dr. Garima Pulliam Potassium [Moles/Vol] 3.6 mmol/L Normal 3.5-5.1 [facility] Comment on above: Performed By: #### C MP ####[facility] Vbjridsldl[address] [place], [place] [address]Dr. Garima Pulliam Protein [Mass/Vol] 6.7 g/dL Normal 6.4-8.2 [facility] Comment on above: Performed By: #### C MP ####[facility] Vygcnhgwcs[address] [place], [place] [address]Dr. Garima Pulliam Sodium [Moles/Vol] 139 mmol/L Normal 136-145 [facility] Comment on above: Performed By: #### C MP ####[facility] Mpbyfwfhlx94[address] [place], [place] [address]Dr. Garima Pulliam Urea nitrogen [Mass/Vol] 11.0 mg/dL Normal 7.0-18.0 [facility] Comment on above: Performed By: #### C MP ####[facility] Uhglqesmyg50[address] [place], [place] [address]Dr. Garima Pulliam Urea nitrogen/Creatinine [Mass ratio] 14.1 mg/mg Normal [facility] Comment on above: Performed By: #### C MP ####[facility] Lgcztplmho[address] [place], [place] [address]Dr. Garima Pulliam CARDIAC NASH 3-6on 2 CK [Catalytic activity/Vol] 240 U/L Normal 39-308 [facility] Comment on above: Performed By: #### C MREP ####[facility] Wlyvxkkcud7952 [place] [address]Dr. Garima Pulliam CK.MB [Mass/Vol] 10.38 ng/mL Critically high <=3.60 [facility] Comment on above: Performed By: #### C MREP ####[facility] Ewqxnpfbxx7892 [place] [address]Dr. Garima Pulliam HSTROP 18.5 pg/mL Normal 4.0-76.1 [facility] Comment on above: Result Comment: CUT- OFF POINTS HAVE BEEN ESTABLISHED BASED ON THE FOURTH UNIVERSAL DEFINITIONS OF MYOCARDIALINFARCTION. THE UPPER REFERENCE LIMIT (URL) OF TROPONIN, DEFINED THE 99TH PERCENTILE OFcTnI DISTRIBUTION IN A REFERENCE POPULATION, HAS BEEN CONFIRMED THE DECISION THRESHOLDFOR [place] DIAGNOSIS. Performed By: #### C MREP ####[facility] Kondjbyjxv6022 [place] [address]Dr. Garima Pulliam CK [Catalytic activity/Vol] 257 U/L Normal 39-308 [facility] Comment on above: Performed By: #### C MREP ####[facility] Bqoxejovgm[address] [place], [place] [address]Dr. Garima Pulliam CK.MB [Mass/Vol] 9.89 ng/mL Critically high <=3.60 [facility] Comment on above: Performed By: #### C MREP ####[facility] Yvragmapeb[address] [place], [place] [address]Dr. Garima Pulliam HSTROP 16.9 pg/mL Normal 4.0-76.1 [facility] Comment on above: Result Comment: CUT- OFF POINTS HAVE BEEN ESTABLISHED BASED ON THE FOURTH UNIVERSAL DEFINITIONS OF MYOCARDIALINFARCTION. THE UPPER REFERENCE LIMIT (URL) OF TROPONIN, DEFINED THE 99TH PERCENTILE OFcTnI DISTRIBUTION IN A REFERENCE POPULATION, HAS BEEN CONFIRMED THE DECISION THRESHOLDFOR [place] DIAGNOSIS. Performed By: #### C MREP ####[facility] [address] [place] [address]Dr. Garima Heraclio CBC AUTO DIFFon 10-22-2022 BASO # 0.0 103/ul Normal 0.0-0.1 [facility] Comment on above: Performed By: #### C BC ####[facility] [address] [place] [id number]. Garima Pulliam Basophils/100 WBC (Bld) 0.1 % Critically low 0.2-2.0 [facility] Comment on above: Performed By: #### C BC ####[facility] [address]ctsg[address] [place] [address]Dr. Garima Pulliam EO # 0.0 103/ul Normal 0.0-0.7 [facility] Comment on above: Performed By: #### C BC ####[facility] Wjtvilimrs[address] [place], [place] [address]Dr. Chapisrenu Heraclio Eosinophils/100 WBC (Bld) 0.0 % Critically low 0.9-7.0 [facility] Comment on above: Performed By: #### C BC ####[facility] Dysgwqznjn[address] [place], [place] [address]Dr. Garima Pulliam Erythrocyte distribution width (RBC) [Ratio] 13.6 % Normal 11.0-15.0 [facility] Comment on above: Performed By: #### C BC ####[facility] Avbxtrd[address]ft[address] [place], [place] [address]Dr. Garima Pulliam Hematocrit (Bld) [Volume fraction] 48.2 % Normal 42.0-54.0 [facility] Comment on above: Performed By: #### C BC ####[facility] Hhuejwft[address] [place], [place] [address]Dr. Garima Pulliam Hemoglobin (Bld) [Mass/Vol] 16.0 g/dL Normal 14.0-18.0 [facility] Comment on above: Performed By: #### C BC ####[facility] Szsckqoptj[address] [place], [place] [address]Dr. Chapisrenu Heraclio IG # 0.02 10e3/ul Normal 0.00-0.03 [facility] Comment on above: Performed By: #### C BC ####[facility] [address]culic[address] [place] [id number]. Garima Pulliam IG % 0.3 % Normal 0.0-0.5 [facility] Comment on above: Performed By: #### C BC ####[facility] X[address]csn[address] [place] [address]Dr. Garima Heraclio LYMPH # 0.5 103/ul Critically low 1.2-3.8 [facility] Comment on above: Performed By: #### C BC ####[facility] Htnateiimy0483 [place] [address]Dr. Garima Heraclio Lymphocytes/100 WBC (Bld) 7.7 % Critically low 20.5-60.0 [facility] Comment on above: Performed By: #### C BC ####[facility] Pcdzqwcssg[address] [place], [place] [address]Dr. Chapisrenu Pulliam MANUAL DIFF REQ NO Normal [facility] Comment on above: Performed By: #### C BC ####[facility] Mfgwftcaai[address] [place], [place] [address]Dr. Garima Heraclio MCH (RBC) [Entitic mass] 30.6 pg Normal 25.9-34.0 [facility] Comment on above: Performed By: #### C BC ####[facility] Yhdhurbzef[address] [place], [place] [address]Dr. Garima Pulliam MCHC (RBC) [Mass/Vol] 33.2 g/dL Normal 29.9-35.2 [facility] Comment on above: Performed By: #### C BC ####[facility] Aulubmyfxj[address] [place], [place] [address]Dr. Garima Heraclio MCV (RBC) [Entitic vol] 92.2 fL Normal 80.0-94.0 [facility] Comment on above: Performed By: #### C BC ####[facility] Bsmvrgsjoh[address] [place], [place] [address]Dr. Garima Pulliam MONO # 0.0 103/ul Critically low 0.3-0.8 [facility] Comment on above: Performed By: #### C BC ####[facility] [address]au[address] [place] [id number]. Garima Pulliam Monocytes/100 WBC (Bld) 0.4 % Critically low 1.7-12.0 [facility] Comment on above: Performed By: #### C BC ####[facility] [address]ej[address]qkri[address] [place] [id number]. Garima Pulliam NEUT # 6.2 103/ul Normal 1.4-6.5 [facility] Comment on above: Performed By: #### C BC ####[facility] K[address]bxeg[address] [place] [address]Dr. Garima Pulliam Neutrophils/100 WBC (Bld) 91.5 % Critically high 43.0-75.0 [facility] Comment on above: Performed By: #### C BC ####[facility] Fiwlcpjhig[address] [place] [address]Dr. Garima Pulliam Platelet mean volume (Bld) [Entitic vol] 8.7 fL Critically low 9.5-13.5 [facility] Comment on above: Performed By: #### C BC ####[facility] [address]un[address] [place] [address]Dr. Garima Pulliam PLT 179 103/ul Normal 150-450 [facility] Comment on above: Performed By: #### C BC ####[facility] Hldioirgdx[address] [place] [id number]. Garima Pulliam RBC 5.23 106/ul Normal 4.70-6.10 [facility] Comment on above: Performed By: #### C BC ####[facility] [address]ss[address] [place] [address]Dr. Garima Pulliam WBC 6.7 103/ul Normal 4.0-11.0 [facility] Comment on above: Performed By: #### C BC ####[facility] [address]fccuxf[address] [place] [address]Dr. Garima Pulliam PROF CHEM 8 (BAS METB)on Anion gap [Moles/Vol] 12.1 mmol/L Normal [facility] Comment on above: Performed By: #### B MP ####[facility] [address]egx[address] [place] [id number]. Garima Pulliam Calcium [Mass/Vol] 8.7 mg/dL Normal 8.5-10.1 [facility] Comment on above: Performed By: #### B MP ####[facility] Poxdmxxk[address] [place] [id number]. Garima Pulliam Chloride [Moles/Vol] 105 mmol/L Normal 98-107 [facility] Comment on above: Performed By: #### B MP ####[facility] Yvrpvpzteb[address] [place] [id number]. Garima Pulliam CO2 [Moles/Vol] 25.5 mmol/L Normal 21.0-32.0 [facility] Comment on above: Performed By: #### B MP ####[facility] C[address]omqhtrq25[address] [place] [address]Dr. Garima Pulliam Creatinine [Mass/Vol] 0.63 mg/dL Critically low 0.70-1.30 [facility] Comment on above: Performed By: #### B MP ####[facility] T[address] [place] [address]Dr. Garima Pulliam EGFR-AF CITIZEN OF [place] >60 Normal >=60 [facility] Comment on above: Performed By: #### B MP ####[facility] Uedxovrnsp[address] [place] [address]Dr. Garima Pulliam EGFR-NON AF CITIZEN OF [place] >60 Normal >=60 [facility] Comment on above: Performed By: #### B MP ####[facility] L[address]hfh[address]ood6[address] [place] [address]Dr. Garima Pulliam Glucose [Mass/Vol] 162 mg/dL Critically high 74-106 [facility] Comment on above: Performed By: #### B MP ####[facility] Hxgdwelfcd[address] [place], [place] [address]Dr. Garima Pulliam Potassium [Moles/Vol] 3.6 mmol/L Normal 3.5-5.1 [facility] Comment on above: Performed By: #### B MP ####[facility] Fvefyonitj[address] [place], [place] [address]Dr. Garima Pulliam Sodium [Moles/Vol] 139 mmol/L Normal 136-145 [facility] Comment on above: Performed By: #### B DAVID ####[facility] [address]bcqgerrp[address] [place] [address]Dr. Garima Pulliam Urea nitrogen [Mass/Vol] 9.0 mg/dL Normal 7.0-18.0 [facility] Comment on above: Performed By: #### B DAVID ####[facility] Bkr[address]enclez[address] [place] [address]Dr. Garima Pulliam Urea nitrogen/Creatinine [Mass ratio] 14.3 mg/mg Normal [facility] Comment on above: Performed By: #### B DAVID ####[facility] V[address]fhynqd[address] [place] [address]Dr. Chapisrenu Pulliam CARDIAC ANSH ADMITon 09-12- 022 CK [Catalytic activity/Vol] 304 U/L Normal 39-308 [facility] Comment on above: Performed By: #### B NANCY HERNANDEZ ####[facility] F[address]htv[address] [place] [address]Dr. Garima Pulliam CK.MB [Mass/Vol] 11.81 ng/mL Critically high <=3.60 [facility] Comment on above: Performed By: #### B NANCY HERNANDEZ ####[facility] Bygfbuqcfd[address] [place] [address]Dr. Garima Heraclio HSTROP 13.3 pg/mL Normal 4.0-76.1 [facility] Comment on above: Result Comment: CUT- OFF POINTS HAVE BEEN ESTABLISHED BASED ON THE FOURTH UNIVERSAL DEFINITIONS OF MYOCARDIALINFARCTION. THE UPPER REFERENCE LIMIT (URL) OF TROPONIN, DEFINED THE 99TH PERCENTILE OFcTnI DISTRIBUTION IN A REFERENCE POPULATION, HAS BEEN CONFIRMED THE DECISION THRESHOLDFOR [place] DIAGNOSIS. Performed By: #### B NANCY HERNANDEZ ####[facility] [address]etwpt[address] [place] [address]Dr. Garima Pulliam DORIS 133 ng/mL Critically high 16-96 [facility] Comment on above: Performed By: #### B NANCY HERNANDEZ ####[facility] Vzkwqconli[address] [place] [address]Dr. Garima Pulliam CBC AUTO DIFFon 09-12-2022 BASO # 0.0 103/ul Normal 0.0-0.1 [facility] Comment on above: Performed By: #### C BC ####[facility] Ywnayejoyv[address] [place], [place] [id number]. Garima Heraclio Basophils/100 WBC (Bld) 0.2 % Normal 0.2-2.0 [facility] Comment on above: Performed By: #### C BC ####[facility] Stugmrnqel[address] [place], [place] [address]Dr. Garima Heraclio EO # 0.2 103/ul Normal 0.0-0.7 [facility] Comment on above: Performed By: #### C BC ####[facility] Tgxfkzldmi[address] [place], [place] [address]Dr. Chapisrenu Pulliam Eosinophils/100 WBC (Bld) 1.3 % Normal 0.9-7.0 [facility] Comment on above: Performed By: #### C BC ####[facility] Qixctvmqal[address] [place], [place] [address]Dr. Garima Pulliam Erythrocyte distribution width (RBC) [Ratio] 13.7 % Normal 11.0-15.0 [facility] Comment on above: Performed By: #### C BC ####[facility] Krquobekvy[address] [place], [place] [address]Dr. Garima Pulliam Hematocrit (Bld) [Volume fraction] 46.4 % Normal 42.0-54.0 [facility] Comment on above: Performed By: #### C BC ####[facility] Bsufxpwphl[address] [place], [place] [address]Dr. Garima Pulliam Hemoglobin (Bld) [Mass/Vol] 15.7 g/dL Normal 14.0-18.0 [facility] Comment on above: Performed By: #### C BC ####[facility] Apvfkenbsw[address] [place], [place] [address]Dr. Garima Pulliam IG # 0.04 10e3/ul Critically high 0.00-0.03 [facility] Comment on above: Performed By: #### C BC ####[facility] [address]jtemmcd[address] [place] [id number]. Garima Pulliam IG % 0.3 % Normal 0.0-0.5 [facility] Comment on above: Performed By: #### C BC ####[facility] Kesrwjvqoo[address] [place] [id number]. Garima Pulliam LYMPH # 1.7 103/ul Normal 1.2-3.8 [facility] Comment on above: Performed By: #### C BC ####[facility] Zpthwddszc9907 [place] [id number]. Garima Pulliam Lymphocytes/100 WBC (Bld) 11.5 % Critically low 20.5-60.0 [facility] Comment on above: Performed By: #### C BC ####[facility] Wpibrhtjkw69[address] [place] [id number]. Garima Pulliam MANUAL DIFF REQ NO Normal [facility] Comment on above: Performed By: #### C BC ####[facility] Qbczakghku4[address] [place] [id number]. Garima Pulliam MCH (RBC) [Entitic mass] 31.0 pg Normal 25.9-34.0 [facility] Comment on above: Performed By: #### C BC ####[facility] Orxapwqgjq7056 [place] [id number]. Garima Pulliam MCHC (RBC) [Mass/Vol] 33.8 g/dL Normal 29.9-35.2 [facility] Comment on above: Performed By: #### C BC ####[facility] Bijsiecxco[address] [place] [id number]. Garima Pulliam MCV (RBC) [Entitic vol] 91.7 fL Normal 80.0-94.0 [facility] Comment on above: Performed By: #### C BC ####[facility] Dspymzgnue37[address] [place] [id number]. Garima Heraclio MONO # 0.8 103/ul Normal 0.3-0.8 [facility] Comment on above: Performed By: #### C BC ####[facility] Wjdfkotvyi0258 [place] [id number]. Garima Pulliam Monocytes/100 WBC (Bld) 5.2 % Normal 1.7-12.0 [facility] Comment on above: Performed By: #### C BC ####[facility] Hkynzbyfcp5[address] [place] [id number]. Garima Pulliam NEUT # 11.7 103/ul Critically high 1.4-6.5 [facility] Comment on above: Performed By: #### C BC ####[facility] Thuvrmzkvg7[address] [place] [id number]. Garima Pulliam Neutrophils/100 WBC (Bld) 81.5 % Critically high 43.0-75.0 [facility] Comment on above: Performed By: #### C BC ####[facility] Smtyqcbito38[address] [place] [address]Dr. Garima Pulliam Platelet mean volume (Bld) [Entitic vol] 8.6 fL Critically low 9.5-13.5 [facility] Comment on above: Performed By: #### C BC ####[facility] Qsomjnxjym5[address] [place] [id number]. Garima Pulliam PLT 191 103/ul Normal 150-450 [facility] Comment on above: Performed By: #### C BC ####[facility] N[address]ftprbd[address] [place], [place] [id number]. Garima Pulliam RBC 5.06 106/ul Normal 4.70-6.10 [facility] Comment on above: Performed By: #### C BC ####[facility] Ihjhenjqxn[address] [place], [place] [id number]. Garima Pulliam WBC 14.4 103/ul Critically high 4.0-11.0 [facility] Comment on above: Performed By: #### C BC ####[facility] Cfbtxmiitt[address] [place], [place] [address]Dr. Garima Pulliam [facility] SARS-CoV-2 (COVID-19) RNA MARIE+probe Ql (Unsp spec) Not detected Normal NOT DETECTED [facility] Comment on above: Result Comment: When [...] for this test is supported by the [employer] of Health and Human Service's declaration that [...] #### C VDTBH ####[facility] Upeekfyeos[address] [place], [place] [address]Dr. Garima Pulliam LACTATE/LACTIC ACIDon 2021 Lactate [Moles/Vol] 1.0 mmol/L Normal 0.4-1.9 [facility] Comment on above: Performed By: #### L ACT ####[facility] Yuffxwravv[address] [place], [place] [address]Dr. Garima Pulliam PROF CHEM 8 (BAS METB)on Anion gap [Moles/Vol] 11.6 mmol/L Normal [facility] Comment on above: Performed By: #### B NANCY HERNANDEZ ####[facility] Zgncoeqsph[address] [place] [address]Dr. Garima Pulliam Calcium [Mass/Vol] 9.2 mg/dL Normal 8.5-10.1 [facility] Comment on above: Performed By: #### B NANCY HERNANDEZ ####[facility] Cewadivmbg25[address] [place] [address]Dr. Garima Pulliam Chloride [Moles/Vol] 105 mmol/L Normal 98-107 [facility] Comment on above: Performed By: #### B MP, CMADM ####[facility] Hvngivxeym0584 [place] [id number]. Garima Pulliam CO2 [Moles/Vol] 25.9 mmol/L Normal 21.0-32.0 [facility] Comment on above: Performed By: #### B DAVID, CMADM ####[facility] Cuyxcbumld36[address] [place] [address]Dr. Garima Pulliam Creatinine [Mass/Vol] 0.72 mg/dL Normal 0.70-1.30 [facility] Comment on above: Performed By: #### B DAVID, CMADM ####[facility] Tnhrlvaiik28[address] [place] [id number]. Garima Pulliam EGFR-AF CITIZEN OF [place] >60 Normal >=60 [facility] Comment on above: Performed By: #### B DAVID, CMADM ####[facility] Rzmb[address]oujen[address] [place] [address]Dr. Chapisrneu Pulliam EGFR-NON AF CITIZEN OF [place] >60 Normal >=60 [facility] Comment on above: Performed By: #### B DAVID, CMAANA ROSA ####[facility] Vyut[address]qyeeh5[address] [place] [address]Dr. Garima Pulliam Glucose [Mass/Vol] 111 mg/dL Critically high 74-106 [facility] Comment on above: Performed By: #### B DAVID, CMADM ####[facility] Tsbgvctlva37[address] [place] [address]Dr. Chapisrenu Pulliam Potassium [Moles/Vol] 3.5 mmol/L Normal 3.5-5.1 [facility] Comment on above: Performed By: #### B DAVID, CMADM ####[facility] Wrnrteuxna[address] [place] [address]Dr. Cahpisrenu Pulliam Sodium [Moles/Vol] 139 mmol/L Normal 136-145 [facility] Comment on above: Performed By: #### B DAVID, CMADM ####[facility] Leiizlcibc86[address] [place] [address]Dr. Garima Pulliam Urea nitrogen [Mass/Vol] 7.0 mg/dL Normal 7.0-18.0 [facility] Comment on above: Performed By: #### B DAVID, CMADM ####[facility] [address] [place], [place] [address]Gp. Garima Pulliam Urea nitrogen/Creatinine [Mass ratio] 9.7 mg/mg Normal [facility] Comment on above: Performed By: #### B MP, CMADM ####[facility] [address]ybr[address] [place], [place] [address]Uq. Garima Pulliam XR CHEST 1 Von 09-12-2022 [...] Facility:[facility]1 Payers Date Payer Category Payer Unknown [id number] 1960 Medicaid [id number] 1960 Unknown [id number] 1960 Unknown [id number] 1954 Unknown [id number] 2.16.84 0.1.635802.3.579.2.593 1954 Unknown [id number] 2.16.84 0.1.537693.3.579.2.593 1954 Unknown [id number] 2.16.84 0.1.851925.3.579.2.593 1954 Unknown [id number] 2.16.84 0.1.800869.3.579.2.593 1954 Unknown [id number] 2.16.84 0.1.859248.3.579.2.593 1954 Unknown [id number] 2.16.84 0.1.079443.3.579.2.593 1954 Unknown [id number] 2.16.84 0.1.072288.3.579.2.593 1954 Unknown [id number] 2.16.84 0.1.711067.3.579.2.593 1954 Unknown [id number] 2.16.84 0.1.730929.3.579.2.593 1954 Unknown [id number] 2.16.84 0.1.931947.3.579.2.593 1954 Unknown [id number] 2.16.84 0.1.226361.3.579.2.593 1954 Unknown [id number] 2.16.84 0.1.610591.3.579.2.593 1954 Unknown [id number] 2.16.84 0.1.233806.3.579.2.593 1954 Unknown [id number] 2.16.84 0.1.096234.3.579.2.593 1954 Unknown [id number] 2.16.84 0.1.993438.3.579.2.593 1954 Unknown [id number] 2.16.84 0.1.128610.3.579.2.593 1954 Unknown [id number] 2.16.84 0.1.751897.3.579.2.593 1954 Unknown [id number] 2.16.84 0.1.784878.3.579.2.593 1954 Unknown [id number] 2.16.84 0.1.501744.3.579.2.593 1954 Unknown [id number] 2.16.84 0.1.417003.3.579.2.593 Summary Purpose Family History No Family History Records Found Advance Directives No Advanced Directives Records Found Additional Source Comments (unrecognized sect ion and content) No Status Records Found INFORMATION SOURCE (unrecogn ized section and content) DATE CREATED AUTHOR 04/08/2023 [facility] FOR RECORDS PERTAINING TO PATIENTS [...] THE PRIMARY CLINICAL RECORDS. [facility] [employer] [facility]. provides no warranty or guarantee of the accuracy or completeness of information in this document.
[2024-11-24 20:58] VITALS: BP 179/112; PULSE 66; O2SAT 95; BMI 23.7
--- NOTE | 2024-11-24 22:28 | ED.SOB1 ---
HPI - SOB/Dyspnea General Chief Complaint: Shortness of Breath/Dyspnea Stated Complaint: SOB Time Seen by Provider: 11/24/24 22:24 Source: patient Mode of arrival: Wheelchair Limitations: no limitations History of Present Illness HPI Narrative: This 69-year-old male with a history of COPD who continues to smoke presents for evaluation of ongoing shortness of breath. He states he is out of his respiratory medications despite being seen by myself last week and being given prescriptions for them. He states he went to his pharmacy but they were not available. I reminded him that I had given him paper prescriptions. He denies any chest pain or fever. He feels that he needs to be on some steroids as he has not been on steroids for a period of time. He does not wear supplemental oxygen. He does continue to smoke despite his COPD. Related Data Home Medications ?Medication ?Instructions ?Recorded ?Confirmed albuterol sulfate 90 mcg/actuation 2 inh inhalation Q6H PRN shortness 03/13/24 10/02/24 aerosol inhaler of breath or wheezing Previous Rx's ?Medication ?Instructions ?Recorded losartan 100 mg tablet 100 mg PO DAILY #30 tabs 12/27/23 albuterol sulfate 2.5 mg/3 mL 2.5 mg (3 mL) inhalation Q6H PRN 05/26/24 (0.083 %) solution for nebulization shortness of breath or wheezing #90 mL loratadine 10 mg tablet (Claritin) 10 mg PO DAILY #20 tabs 05/30/24 albuterol sulfate 2.5 mg/3 mL 2.5 mg (3 mL) inhalation Q6H PRN 08/07/24 (0.083 %) solution for nebulization shortness of breath or wheezing #90 mL albuterol sulfate 90 mcg/actuation 2 inh inhalation Q4H PRN shortness 08/07/24 aerosol inhaler of breath or wheezing #8.5 grams albuterol sulfate 2.5 mg/3 mL 1.25 mg (1.5 mL) inhalation Q6H 09/04/24 (0.083 %) solution for nebulization PRN bronchospasm #75 mL albuterol sulfate 90 mcg/actuation 2 inh inhalation Q6H PRN shortness 09/04/24 aerosol inhaler of breath or wheezing #6.7 grams albuterol sulfate 2.5 mg/3 mL 2.5 mg (3 mL) inhalation Q6H PRN 09/12/24 (0.083 %) solution for nebulization shortness of breath or wheezing #90 mL prednisone 20 mg tablet See Rx Instructions .Route 09/21/24 .COMPLEX #12 tabs albuterol sulfate 2.5 mg/0.5 mL 2.5 mg (0.5 mL) inhalation Q4H PRN 10/02/24 solution for nebulization shortness of breath or wheezing #30 ea albuterol sulfate 90 mcg/actuation 2 inh inhalation Q4H PRN shortness 10/02/24 aerosol inhaler of breath or wheezing #6.7 grams albuterol sulfate 2.5 mg/3 mL 2.5 mg (3 mL) inhalation Q6H PRN 10/07/24 (0.083 %) solution for nebulization shortness of breath or wheezing #90 mL albuterol sulfate 90 mcg/actuation 2 inh inhalation Q4H PRN shortness 10/07/24 aerosol inhaler of breath or wheezing #8.5 grams hydrocodone 5 mg-acetaminophen 325 1 tab PO Q4H PRN pain #10 tabs 11/11/24 mg tablet ketorolac 10 mg tablet 10 mg PO Q8H PRN pain 1 day #10 11/11/24 tabs metformin 500 mg tablet 500 mg PO BID #30 tabs 11/11/24 ondansetron 4 mg disintegrating 4 mg PO Q4H PRN nausea and 11/11/24 tablet vomiting 3 days #6 tabs tamsulosin 0.4 mg capsule (Flomax) 0.4 mg PO DAILY 7 days #7 caps 11/11/24 tamsulosin 0.4 mg capsule (Flomax) 0.4 mg PO DAILY #14 caps 11/12/24 Allergies Allergy/AdvReac Type Severity Reaction Status Date / Time No Known Drug Allergies Allergy Verified 11/21/24 19:22 Review of Systems ROS Status of ROS 10 or more systems reviewed and unremarkable except as noted in history and below [facility] Medical History (Updated 11/24/24 @ 22:58 by Teresa Ag MD) Hypokalemia ?E87.6 - Hypokalemia (ICD-10) New onset type 2 diabetes mellitus ?E11.9 - Type 2 diabetes mellitus without complications (ICD-10) Lower extremity edema ?R60.0 - Localized edema (ICD-10) Edema ?R60.9 - Edema, unspecified (ICD-10) Acute hyperglycemia ?R73.9 - Hyperglycemia, unspecified (ICD-10) Tobacco abuse ?Z72.0 - Tobacco use (ICD-10) HTN (hypertension) ?I10 - Essential (primary) hypertension (ICD-10) Community acquired pneumonia ?J18.9 - Pneumonia, unspecified organism (ICD-10) Chronic obstructive pulmonary disease ?J44.9 - Chronic obstructive pulmonary disease, unspecified (ICD-10) Acute exacerbation of chronic obstructive pulmonary disease (COPD) ?J44.1 - Chronic obstructive pulmonary disease with (acute) exacerbation (ICD-10) RLL pneumonia ?J18.9 - Pneumonia, unspecified organism (ICD-10) COPD (chronic obstructive pulmonary disease) ?J44.9 - Chronic obstructive pulmonary disease, unspecified (ICD-10) Surgical History (Updated 01/29/24 @ 06:45 by Latonia Martin RN) Hx of tonsillectomy ?Z90.89 - Acquired absence of other organs (ICD-10) Family History (Updated 12/25/23 @ 21:28 by Kym Ordaz) Mother Family history of cancer Family history of hypertension Father Family history of cancer Social History Within the past year, how often did you have a drink containing alcohol: 4 or more times a week Within the past year, how many standard drinks containing alcohol did you have on a typical day: 3 or 4 Within the past year, how often did you have six or more drinks on one occasion: less than monthly Total score: 3 Score interpretation: A score of 4 or more indicates drinking is likely to affect patient's safety. Smoking status: Current every day smoker Non-prescribed substance use: cannabis (any form) Previous occupational history: retired Highest level of school completed/degree received: high school graduate Are you now , , , , never or living with a partner: In a typical week, how many times do you talk on the telephone with family, friends, or neighbors: twice per week How often do you get together with friends or relatives: once per week How often do you attend muslim or temple services: never Do you belong to any clubs or organizations such as muslim groups unions, fraternal or athletic groups, or school groups: no Total score: 1 Score interpretation: A score of less than or equal to 1 indicates the most socially isolated. Little interest or pleasure in doing things: not at all Feeling down, depressed, or hopeless: not at all Feel stressed/tense/nervous/anxious/difficulty sleeping: not at all Do you think of yourself as: straight/heterosexual Gender Identity: male Exam Narrative Exam Narrative: Vital signs and Nursing Notes reviewed: Patient is has a normal pulse, normal respiratory, blood pressure is elevated at 179/112, he is not hypoxic with pulse ox of 95% on room air General: Awake, alert, oriented, no acute distress, lying comfortably on the stretcher HEENT: Normocephalic atraumatic, mucous membranes are moist and pink, eyes are clear, normal conjunctiva, vision is grossly intact Chest: Coarse breath sounds with occasional expiratory wheezing, no rhonchi or rales appreciated, no accessory muscle use, patient is speaking in complete sentences, pulse ox is at his baseline at 95% on room air CVS: Regular rate and rhythm S1-S2, no murmurs rubs or gallops, pulses are brisk and equal bilaterally ABD: Soft, nondistended, nontender, no rebound guarding or rigidity, bowel sounds are normal, no pulsatile masses appreciated Extremities: Moving all extremities, chronic lower extremity skin changes with 1-2+ pitting edema Skin: Normal in appearance without rash,pallor, petechiae or purpura Neuro: No focal deficits Constitutional Vital Signs, click to edit/add: Last Vital Signs Pulse 66 11/24/24 20:58 Resp 18 11/24/24 20:58 BP 179/112 H 11/24/24 20:58 Pulse Ox 95 11/24/24 20:58 O2 Del Method Room Air 11/24/24 20:58 Course Vital Signs Vital signs: Vital Signs Pulse Rate 66 11/24/24 20:58 Respiratory Rate 18 11/24/24 20:58 Blood Pressure 179/112 H 11/24/24 20:58 Pulse Oximetry 95 11/24/24 20:58 Oxygen Delivery Method Room Air 11/24/24 20:58 Pulse Rate 66 11/24/24 20:58 Respiratory Rate 18 11/24/24 20:58 Blood Pressure 179/112 H 11/24/24 20:58 Pulse Oximetry 95 11/24/24 20:58 Oxygen Delivery Method Room Air 11/24/24 20:58 MDM - SOB/Dyspnea MDM Narrative Medical decision making narrative: This patient with a history of COPD and tobacco use presents for evaluation of ongoing shortness of breath. He was seen last week by myself and given prescriptions for albuterol MDI, albuterol nebulizer medication and Nebules and an MDI to use at home. The patient states he went to the pharmacy but he did not have the medications that I had prescribed to him however I reminded him that I had given him paper prescriptions which she had not taken to the pharmacy. The patient appears to be at his baseline with his respiratory status. He is speaking complete sentences, pulse ox is at baseline at 95% on room air. He was given a DuoNeb treatment and a duoneb nebule to take home. He was given a prednisone in the emergency department and a prescription for prednisone to use over the course of the next week. I encouraged him strongly to quit smoking cigarettes as this is contributing to his ongoing respiratory issues and COPD. He verbalizes understanding of my concerns but does not appear to be in agreement with this plan. He is stable for discharge will be discharged home again with a prescription for DuoNeb nebulizer solution and prednisone. He does have the albuterol MDI that he was given in this emergency department last week and has prescriptions for the same at home. Smoking Cessation Time spent discussing smoking cessation with patient: 3 to 10 minutes Discharge Plan Discharge Chief Complaint: Shortness of Breath/Dyspnea Clinical Impression: COPD (chronic obstructive pulmonary disease), Tobacco abuse counseling, Hypertension Patient Disposition: Home, Self-Care Time of Disposition Decision: 22:58 Condition: Good Prescriptions / Home Meds: No Action losartan 100 mg tablet 100 mg PO DAILY Qty: 30 11RF albuterol sulfate 90 mcg/actuation HFA aerosol inhaler 2 inh inhalation Q6H PRN (Reason: shortness of breath or wheezing) albuterol sulfate 2.5 mg /3 mL (0.083 %) solution for nebulization 2.5 mg inhalation Q6H PRN (Reason: shortness of breath or wheezing) Qty: 90 0RF albuterol sulfate 2.5 mg /3 mL (0.083 %) solution for nebulization 2.5 mg inhalation Q6H PRN (Reason: shortness of breath or wheezing) Qty: 90 0RF albuterol sulfate 90 mcg/actuation HFA aerosol inhaler 2 inh inhalation Q4H PRN (Reason: shortness of breath or wheezing) Qty: 8.5 0RF albuterol sulfate 2.5 mg /3 mL (0.083 %) solution for nebulization 2.5 mg inhalation Q6H PRN (Reason: shortness of breath or wheezing) Qty: 90 0RF prednisone 20 mg tablet See Rx Instructions .ROUTE .COMPLEX Qty: 12 0RF Rx Instructions: 3 tabs daily for 2 days, then 2 tabs daily for 2 days, then 1 tab daily for 2 days albuterol sulfate 2.5 mg/0.5 mL solution for nebulization 2.5 mg inhalation Q4H PRN (Reason: shortness of breath or wheezing) Qty: 30 2RF albuterol sulfate 90 mcg/actuation HFA aerosol inhaler 2 inh inhalation Q4H PRN (Reason: shortness of breath or wheezing) Qty: 6.7 0RF loratadine [Claritin] 10 mg tablet 10 mg PO DAILY Qty: 20 0RF albuterol sulfate 2.5 mg /3 mL (0.083 %) solution for nebulization 1.25 mg inhalation Q6H PRN (Reason: bronchospasm) Qty: 75 0RF albuterol sulfate 90 mcg/actuation HFA aerosol inhaler 2 inh inhalation Q6H PRN (Reason: shortness of breath or wheezing) Qty: 6.7 0RF albuterol sulfate 90 mcg/actuation HFA aerosol inhaler 2 inh inhalation Q4H PRN (Reason: shortness of breath or wheezing) Qty: 8.5 0RF albuterol sulfate 2.5 mg /3 mL (0.083 %) solution for nebulization 2.5 mg inhalation Q6H PRN (Reason: shortness of breath or wheezing) Qty: 90 0RF hydrocodone-acetaminophen 5-325 mg tablet 1 tab PO Q4H PRN (Reason: pain) Qty: 10 0RF ketorolac 10 mg tablet 10 mg PO Q8H PRN (Reason: pain) 1 Days Qty: 10 0RF tamsulosin [Flomax] 0.4 mg capsule 0.4 mg PO DAILY 7 Days Qty: 7 0RF ondansetron 4 mg tablet,disintegrating 4 mg PO Q4H PRN (Reason: nausea and vomiting) 3 Days Qty: 6 0RF metformin 500 mg tablet 500 mg PO BID Qty: 30 0RF tamsulosin [Flomax] 0.4 mg capsule 0.4 mg PO DAILY Qty: 14 0RF Print Language: [place] Instructions: COPD (Chronic Obstructive Pulmonary Disease) (ED), Chronic Hypertension (ED) Referrals: SERG DUENAS [Primary Care Provider] - 1 week
[2024-11-24] MEDS: PREDNISONE 20 MG TABLET 40 MG PO (22:42)
[2024-11-24] MEDS: IPRATROPIUM/ALBUTEROL SULFATE 3 ML AMPUL.NEB IH ×2 (23:00)
[2024-11-24 23:17] VITALS: BP 190/90
== END 2024-11-24 23:24 | disposition home or self-care (01) ==
PROVIDERS: Emergency Provider Emergency Medicine
DX: J44.9 Chronic obstructive pulmonary disease, unspecified (principal); I10 Essential (primary) hypertension; R06.02 Shortness of breath; F17.200 Nicotine dependence, unspecified, uncomplicated
CPT/HCPCS: 94640; 99283; J7512

== ENCOUNTER 2024-12-10 15:37 | Emergency (ER) | payer MEDICARE, MEDICAID, SELFPAY ==
[2024-12-10] VITALS (7 sets, daily range): BP systolic 174–222; BP diastolic 82–100; PULSE 69–70; TEMP 36.8; O2SAT 93–956
--- OUTSIDE RECORDS SUMMARY | 2024-12-10 15:46 | XMS_ITS | CCD ---
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 Garima Pulliam Basophils/100 WBC (Bld) 0.3 % Normal 0.2-2.0 [facility] Comment on above: Performed By: #### C BC ####[facility] Pgfpnguzpd4967 [place] [address]DrAdalberto Pulliam EO # 0.3 103/ul Normal 0.0-0.7 [facility] Comment on above: Performed By: #### C BC ####[facility] Ehhotcll[address] [place], [place] [address]Dr. Garima Pulliam Eosinophils/100 WBC (Bld) 2.8 % Normal 0.9-7.0 [facility] Comment on above: Performed By: #### C BC ####[facility] Pourzdhkac[address] [place] [address]Dr. Garima Pulliam Erythrocyte distribution width (RBC) [Ratio] 13.4 % Normal 11.0-15.0 [facility] Comment on above: Performed By: #### C BC ####[facility] Vyhonzlkbk6[address] [place] [address]Dr. Garima Pulliam Hematocrit (Bld) [Volume fraction] 45.7 % Normal 42.0-54.0 [facility] Comment on above: Performed By: #### C BC ####[facility] Iaxmroaxua14[address] [place] [address]Dr. Garima Pulliam Hemoglobin (Bld) [Mass/Vol] 15.2 g/dL Normal 14.0-18.0 [facility] Comment on above: Performed By: #### C BC ####[facility] Zirvtvlwzi9[address] [place] [address]Dr. Garima Pulliam IG # 0.02 10e3/ul Normal 0.00-0.03 [facility] Comment on above: Performed By: #### C BC ####[facility] Llnlficqib6376 [place] [address]Dr. Garima Pulliam IG % 0.2 % Normal 0.0-0.5 [facility] Comment on above: Performed By: #### C BC ####[facility] Tbhmpxvlos6[address] [place] [address]Dr. Garima Pulliam LYMPH # 2.1 103/ul Normal 1.2-3.8 [facility] Comment on above: Performed By: #### C BC ####[facility] Duqwetpjjg1253 [place] [address]Dr. Garima Pulliam Lymphocytes/100 WBC (Bld) 23.7 % Normal 20.5-60.0 [facility] Comment on above: Performed By: #### C BC ####[facility] Rknvrlqekx68[address] [place] [address]Dr. Garima Heraclio MANUAL DIFF REQ NO Normal [facility] Comment on above: Performed By: #### C BC ####[facility] Nyuscpkdva6[address] [place] [address]Dr. Garima Pulliam MCH (RBC) [Entitic mass] 30.4 pg Normal 25.9-34.0 [facility] Comment on above: Performed By: #### C BC ####[facility] Byehuamqxf14[address] [place] [address]Dr. Garima Heraclio MCHC (RBC) [Mass/Vol] 33.3 g/dL Normal 29.9-35.2 [facility] Comment on above: Performed By: #### C BC ####[facility] Dbpejkbpaq[address] [place], [place] [address]Dr. Chapisrenu Pulliam MCV (RBC) [Entitic vol] 91.4 fL Normal 80.0-94.0 [facility] Comment on above: Performed By: #### C BC ####[facility] Tpanzakxqu[address] [place], [place] [address]Dr. Garima Heraclio MONO # 0.7 103/ul Normal 0.3-0.8 [facility] Comment on above: Performed By: #### C BC ####[facility] Lehxkgityg[address] [place], [place] [address]Dr. Chapisrenu Pulliam Monocytes/100 WBC (Bld) 8.3 % Normal 1.7-12.0 [facility] Comment on above: Performed By: #### C BC ####[facility] Dvcqqhqxqv4291 [place] [address]Dr. Chapisrneu Heraclio NEUT # 5.8 103/ul Normal 1.4-6.5 [facility] Comment on above: Performed By: #### C BC ####[facility] Zekpprfiei[address] [place], [place] [address]Dr. Garima Pulliam Neutrophils/100 WBC (Bld) 64.7 % Normal 43.0-75.0 [facility] Comment on above: Performed By: #### C BC ####[facility] Qdulwoxfld6693 [place] [address]Dr. Garima Pulliam Platelet mean volume (Bld) [Entitic vol] 8.6 fL Critically low 9.5-13.5 [facility] [place] Comment on above: Performed By: #### C BC ####[facility] Tuvmywoqsb9040 [place] [address]Dr. Garima Pulliam PLT 230 103/ul Normal 150-450 [facility] Comment on above: Performed By: #### C BC ####[facility] Yyqclfgaxp1165 [place] [address]Dr. Chapisrenu Heraclio RBC 5.00 106/ul Normal 4.70-6.10 [facility] [place] Comment on above: Performed By: #### C BC ####[facility] Bprtdpyylp3295 [place] [address]Dr. Garima Heraclio WBC 9.0 103/ul Normal 4.0-11.0 [facility] Comment on above: Performed By: #### C BC ####[facility] Wypxbaxhkj2657 [place] [address]Dr. Garima Pulliam MAGNESIUMon 04-04-2023 Magnesium [Mass/Vol] 1.8 mg/dL Normal 1.8-2.4 [facility] [place] Comment on above: Performed By: #### M G ####[facility] Wakdzcqjci5[address] [place] [address]Dr. Chapisrenu Pulliam PROF 14(COMP METB)on 023 Albumin [Mass/Vol] 3.8 g/dL Normal 3.4-5.0 [facility] Comment on above: Performed By: #### C MP ####[facility] Vlzrmbzplv5744 [place] [address]Dr. Garima Pulliam Albumin/Globulin [Mass ratio] 1.2 {ratio} Normal [facility] Comment on above: Performed By: #### C MP ####[facility] Ywosfguuak0087 [place] [address]Dr. Garima Heraclio ALP [Catalytic activity/Vol] 84 U/L Normal 46-116 [facility] Comment on above: Performed By: #### C MP ####[facility] Mqsotkclmn8666 [place] [phone]. Garima Pulliam ALT [Catalytic activity/Vol] 31 U/L Normal 16-63 [facility] Comment on above: Performed By: #### C MP ####[facility] Whgqevsxph2698 [place] [address]Dr. Garima Pulliam Anion gap [Moles/Vol] 12.2 mmol/L Normal [facility] Comment on above: Performed By: #### C MP ####[facility] Txjhegjbqf0099 [place] [address]Dr. Garima Pulliam AST [Catalytic activity/Vol] 23 U/L Normal 15-37 [facility] Comment on above: Performed By: #### C MP ####[facility] Gkmnpwnszl[address] [place], [place] [address]Dr. Garima Pulliam Bilirubin [Mass/Vol] 0.5 mg/dL Normal 0.2-1.0 [facility] Comment on above: Performed By: #### C MP ####[facility] Xzsjksnpok[address] [place], [place] [address]Dr. Garima Pulliam Calcium [Mass/Vol] 9.2 mg/dL Normal 8.5-10.1 [facility] Comment on above: Performed By: #### C MP ####[facility] Tedkgoldqt[address] [place], [place] [address]Dr. Garima Pulliam Chloride [Moles/Vol] 103 mmol/L Normal 98-107 [facility] Comment on above: Performed By: #### C MP ####[facility] Wiasrshvnj0043 [place] [address]Dr. Garima Pulliam CO2 [Moles/Vol] 28.5 mmol/L Normal 21.0-32.0 [facility] Comment on above: Performed By: #### C MP ####[facility] Chngbjnvjx45[address] [place], [place] [address]Dr. Garima Pulliam Creatinine [Mass/Vol] 0.74 mg/dL Normal 0.70-1.30 [facility] [place] Comment on above: Performed By: #### C MP ####[facility] Lhmtssjjyn5557 [place] [phone]. Garima Pulliam EGFR-AF EMIRATI >60 Normal >=60 [facility] Comment on above: Performed By: #### C MP ####[facility] Kgfzehjomo6[address] [place] [address]Dr. Garima Heraclio EGFR-NON AF EMIRATI >60 Normal >=60 [facility] Comment on above: Performed By: #### C MP ####[facility] Qzxmngunsi0936 [place] [phone]. Garima Heraclio Globulin (S) [Mass/Vol] 3.1 g/dL Normal [facility] Comment on above: Performed By: #### C MP ####[facility] Gqnmzajsxj23[address] [place], [place] [address]Dr. Garima Heraclio Glucose [Mass/Vol] 93 mg/dL Normal 74-106 [facility] Comment on above: Performed By: #### C MP ####[facility] Cizyioeaaa[address] [place], [place] [address]Dr. Garima Heraclio Potassium [Moles/Vol] 3.7 mmol/L Normal 3.5-5.1 [facility] Comment on above: Performed By: #### C MP ####[facility] Bysjconkkt[address] [place], [place] [address]Dr. Garima Heraclio Protein [Mass/Vol] 6.9 g/dL Normal 6.4-8.2 [facility] Comment on above: Performed By: #### C MP ####[facility] Nkdspnvcpc68[address] [place], [place] [address]Dr. Garima Heraclio Sodium [Moles/Vol] 140 mmol/L Normal 136-145 [facility] Comment on above: Performed By: #### C MP ####[facility] Eiuuwybscq[address] [place], [place] [address]Dr. Garima Pulliam Urea nitrogen [Mass/Vol] 8.0 mg/dL Normal 7.0-18.0 [facility] Comment on above: Performed By: #### C MP ####[facility] Bespmofjtj[address] [place], [place] [address]Dr. Garima Pulliam Urea nitrogen/Creatinine [Mass ratio] 10.8 mg/mg Normal [facility] Comment on above: Performed By: #### C DAVID ####[facility] Bmvegjkklp26[address] [place] [address]Dr. Garima Pulliam AMMONIAon 03-30-2023 Ammonia (P) [Moles/Vol] 11 umol/L Normal 11-32 [facility] Comment on above: Performed By: #### A MM ####[facility] Kaqnvgfsgn[address] [place], [place] [address]Dr. Garima Pulliam CARDIAC NASH ADMITon 023 CK [Catalytic activity/Vol] 232 U/L Normal 39-308 [facility] Comment on above: Performed By: #### C NANCY HERNANDEZ ####[facility] Yzusllzvse1647 [place] [address]Dr. Chapisrenu Pulliam CK.MB [Mass/Vol] 4.83 ng/mL Critically high <=3.60 [facility] Comment on above: Performed By: #### C NANCY HERNANDEZ ####[facility] Vpjljzijwj[address] [place], [place] [address]Dr. Garima Pulliam HSTROP 10.5 pg/mL Normal 4.0-76.1 [facility] Comment on above: Result Comment: CUT- OFF POINTS HAVE BEEN ESTABLISHED BASED ON THE FOURTH UNIVERSAL DEFINITIONS OF MYOCARDIALINFARCTION. THE UPPER REFERENCE LIMIT (URL) OF TROPONIN, DEFINED THE 99TH PERCENTILE OFcTnI DISTRIBUTION IN A REFERENCE POPULATION, HAS BEEN CONFIRMED THE DECISION THRESHOLDFOR DE DIAGNOSIS. Performed By: #### C NANCY HERNANDEZ ####[facility] Wmyqfknzdb[address] [place], [place] [address]Dr. Garima Heraclio DORIS 79 ng/mL Normal 16-96 [facility] Comment on above: Performed By: #### C NANCY HERNANDEZ ####[facility] [address]jxcmgbhdl[address] [place], [place] [address]Dr. Garima Heraclio CBC AUTO DIFFon 03-30-2023 BASO # 0.0 103/ul Normal 0.0-0.1 [facility] Comment on above: Performed By: #### C BC ####[facility] V[address]uibktdh3466 [place] [phone]. Garima Pulliam Basophils/100 WBC (Bld) 0.1 % Critically low 0.2-2.0 [facility] Comment on above: Performed By: #### C BC ####[facility] Rvdthbuivk2541 [place] [phone]. Garima Pulliam EO # 0.3 103/ul Normal 0.0-0.7 [facility] Comment on above: Performed By: #### C BC ####[facility] [address] [place], [place] [address]Dr. Garima Pulliam Eosinophils/100 WBC (Bld) 3.3 % Normal 0.9-7.0 [facility] Comment on above: Performed By: #### C BC ####[facility] Ksqatiuoeq[address] [place], [place] [address]Dr. Garima Pulliam Erythrocyte distribution width (RBC) [Ratio] 13.5 % Normal 11.0-15.0 [facility] Comment on above: Performed By: #### C BC ####[facility] [address]aw[address]lsi[address] [place], [place] [address]Dr. Garima Pulliam Hematocrit (Bld) [Volume fraction] 42.9 % Normal 42.0-54.0 [facility] Comment on above: Performed By: #### C BC ####[facility] [address]ns[address] [place], [place] [address]Dr. Garima Pulliam Hemoglobin (Bld) [Mass/Vol] 13.9 g/dL Critically low 14.0-18.0 [facility] Comment on above: Performed By: #### C BC ####[facility] Wquoospqch6567 [place] [phone]. Garima Pulliam IG # 0.01 10e3/ul Normal 0.00-0.03 [facility] Comment on above: Performed By: #### C BC ####[facility] Igcnfycllc[address] [place], [place] [address]Dr. Garima Pulliam IG % 0.1 % Normal 0.0-0.5 [facility] Comment on above: Performed By: #### C BC ####[facility] Yehtgzdisr7227 [place] [phone]. Garima Pulliam LYMPH # 1.7 103/ul Normal 1.2-3.8 [facility] Comment on above: Performed By: #### C BC ####[facility] Djpsqlcooe6950 [place], [place] [address]Et. Garima Pulliam Lymphocytes/100 WBC (Bld) 22.8 % Normal 20.5-60.0 [facility] Comment on above: Performed By: #### C BC ####[facility] Ooifdcvwlw4104 [place] [phone]. Garima Heraclio MANUAL DIFF REQ NO Normal [facility] Comment on above: Performed By: #### C BC ####[facility] Edhzjtlcbj5311 [place] [phone]. Garima Heraclio MCH (RBC) [Entitic mass] 30.5 pg Normal 25.9-34.0 [facility] Comment on above: Performed By: #### C BC ####[facility] Lkeohamzvy2097 [place] [phone]. Garima Pulliam MCHC (RBC) [Mass/Vol] 32.4 g/dL Normal 29.9-35.2 [facility] Comment on above: Performed By: #### C BC ####[facility] Gjqdkzcioe0524 [place] [phone]. Garima Heraclio MCV (RBC) [Entitic vol] 94.1 fL Critically high 80.0-94.0 [facility] Comment on above: Performed By: #### C BC ####[facility] Toybcchesa3956 [place] [phone]. Garima Heraclio MONO # 0.7 103/ul Normal 0.3-0.8 [facility] Comment on above: Performed By: #### C BC ####[facility] Fnuanmudat2318 [place] [phone]. Garima Heraclio Monocytes/100 WBC (Bld) 8.6 % Normal 1.7-12.0 [facility] Comment on above: Performed By: #### C BC ####[facility] Dwdmpoaepf2383 [place] [phone]. Garima Pulliam NEUT # 4.9 103/ul Normal 1.4-6.5 [facility] Comment on above: Performed By: #### C BC ####[facility] Ymiiqykaxz2664 [place] [phone]. Garima Pulliam Neutrophils/100 WBC (Bld) 65.1 % Normal 43.0-75.0 [facility] Comment on above: Performed By: #### C BC ####[facility] Cnucsuozcm0536 [place] [phone]. Garima Pulliam Platelet mean volume (Bld) [Entitic vol] 8.5 fL Critically low 9.5-13.5 [facility] [place] Comment on above: Performed By: #### C BC ####[facility] Sxxtofgnyc8609 [place] [phone]. Garima Pulliam PLT 219 103/ul Normal 150-450 [facility] Comment on above: Performed By: #### C BC ####[facility] Yxduvugjnx5003 [place] [phone]. Garima Pulliam RBC 4.56 106/ul Critically low 4.70-6.10 [facility] Comment on above: Performed By: #### C BC ####[facility] Jnfnrygmsc2409 [place] [phone]. Garima Pulliam WBC 7.6 103/ul Normal 4.0-11.0 [facility] Comment on above: Performed By: #### C BC ####[facility] Sqqaqrxmmk1763 [place] [phone]. Garima Pulliam LACTATE/LACTIC ACIDon 2022 Lactate [Moles/Vol] 1.2 mmol/L Normal 0.4-2.0 [facility] Comment on above: Performed By: #### L ACT ####[facility] Bwmvfhfurv9989 [place] [phone]. Garima Pulliam MAGNESIUMon 03-30-2023 Magnesium [Mass/Vol] 1.8 mg/dL Normal 1.8-2.4 [facility] [place] Comment on above: Performed By: #### M G ####[facility] Qlgmmfpcbe0721 [place] [address]Dr. aGrima Pulliam PROF 14(COMP METB)on 023 Albumin [Mass/Vol] 3.5 g/dL Normal 3.4-5.0 [facility] Comment on above: Performed By: #### C DAVID, CMAANA ROSA ####[facility] Etabcxnexi7997 [place] [address]Dr. Garima Pulliam Albumin/Globulin [Mass ratio] 1.2 {ratio} Normal [facility] [place] Comment on above: Performed By: #### C DAVID, CMAANA ROSA ####[facility] Xhswkrwkkz1549 [place] [address]Dr. Garima Pulliam ALP [Catalytic activity/Vol] 85 U/L Normal 46-116 [facility] [place] Comment on above: Performed By: #### C DAVID, CMAANA ROSA ####[facility] X[address]vbwhpvhl[address] [place], [place] [address]Dr. Garima Pulliam ALT [Catalytic activity/Vol] 29 U/L Normal 16-63 [facility] [place] Comment on above: Performed By: #### C DAVID, CMAANA ROSA ####[facility] Rgaucqqraq7637 [place] [address]Dr. Garima Pulliam Anion gap [Moles/Vol] 8.0 mmol/L Normal [facility] [place] Comment on above: Performed By: #### C DAVID, CMAANA ROSA ####[facility] Nsaikxoysi8913 [place] [address]Dr. Garima Pulliam AST [Catalytic activity/Vol] 18 U/L Normal 15-37 [facility] Comment on above: Performed By: #### C DAVID, CMADM ####[facility] Kyygrhryrh6120 [place] [address]Dr. Garima Pulliam Bilirubin [Mass/Vol] 0.4 mg/dL Normal 0.2-1.0 [facility] Comment on above: Performed By: #### C DAVID, CMADM ####[facility] Ubhyrlkfyn3831 [place] [address]Dr. Garima Pulliam Calcium [Mass/Vol] 8.8 mg/dL Normal 8.5-10.1 [facility] Comment on above: Performed By: #### C DAVID, NANCY ####[facility] Yevarixayt9304 [place] [address]Dr. Chapisrenu Pulliam Chloride [Moles/Vol] 108 mmol/L Critically high 98-107 [facility] [place] Comment on above: Performed By: #### C DAVID, NANCY ####[facility] Vpdktsotpz4272 [place] [address]Dr. Garima Pulliam CO2 [Moles/Vol] 29.6 mmol/L Normal 21.0-32.0 [facility] Comment on above: Performed By: #### C NANCY HERNANDEZ ####[facility] Pillmfraae[address] [place], [place] [address]Dr. Garima Pulliam Creatinine [Mass/Vol] 0.77 mg/dL Normal 0.70-1.30 [facility] [place] Comment on above: Performed By: #### C NANCY HERNANDEZ ####[facility] Rgqanqlczq[address] [place], [place] [address]Dr. Garima Heraclio EGFR-AF EMIRATI >60 Normal >=60 [facility] Comment on above: Performed By: #### C NANCY HERNANDEZ ####[facility] Wzcpbalcah[address] [place], [place] [address]Dr. Garima Heraclio EGFR-NON AF EMIRATI >60 Normal >=60 [facility] [place] Comment on above: Performed By: #### C NANCY HERNANDEZ ####[facility] Psegsgrtsl8843 [place] [address]Dr. Garima Pulliam Globulin (S) [Mass/Vol] 2.8 g/dL Normal [facility] Comment on above: Performed By: #### C NANCY HERNANDEZ ####[facility] Grhqwaxtoh4754 [place] [address]Dr. Garima Pulliam Glucose [Mass/Vol] 207 mg/dL Critically high 74-106 [facility] Comment on above: Performed By: #### C NANCY HERNANDEZ ####[facility] Fjmxcvueli[address] [place], [place] [address]Dr. Garima Pulliam Potassium [Moles/Vol] 4.6 mmol/L Normal 3.5-5.1 [facility] [place] Comment on above: Performed By: #### C DAVID, NANCY ####[facility] Lubfixyxeo8260 [place] [address]Dr. Garima Pulliam Protein [Mass/Vol] 6.3 g/dL Critically low 6.4-8.2 [facility] Comment on above: Performed By: #### C DAVID, NANCY ####[facility] Wcgsymmjde6315 [place] [address]Dr. Garima Pulliam Sodium [Moles/Vol] 141 mmol/L Normal 136-145 [facility] Comment on above: Performed By: #### C DAVID, NANCY ####[facility] Rozesgrohk6827 [place] [address]Dr. Garima Pulliam Urea nitrogen [Mass/Vol] 9.0 mg/dL Normal 7.0-18.0 [facility] [place] Comment on above: Performed By: #### C DAVID, NANCY ####[facility] Hxbdlnpkdi5621 [place] [address]Dr. Garima Pulliam Urea nitrogen/Creatinine [Mass ratio] 11.7 mg/mg Normal [facility] [place] Comment on above: Performed By: #### C DAVID, NANCY ####[facility] Zpzcbffojt9296 [place] [address]Dr. Garima Pulliam XR CHEST 1 Von 03-30-2023 XR CHEST 1 V Normal [facility] [place] BNPon 03-27-2023 Natriuretic peptide B (Bld) [Mass/Vol] 251.0 pg/mL Normal <=900.0 [facility] [place] Comment on above: Performed By: #### C MP, BNP, LIPID ####[facility] Asethemsch6[address] [place] [address]Dr. Garima Pulliam GLYCOHEMOGLOBIN A1Con 2022 ADA RECOMMENDATION SEE BELOW Normal [facility] Comment on above: Result Comment: ADA RECOMMENDED LIMIT 4.0 - 6.0 ADA THERAPEUTIC TARGET < 7.0 ACTION SUGGESTED > 7.0 Performed By: #### A 1C ####[facility] Wxjewmxhkq3351 [place] [address]Dr. Garima Pulliam Glucose [Mass/Vol] 180 mg/dL Normal [facility] Comment on above: Performed By: #### A 1C ####[facility] Abitdhjogb[address] [place], [place] [address]Dr. Chapisrenu Pulliam HbA1c (Bld) [Mass fraction] 7.9 % Critically high 4.5-6.2 [facility] [place] Comment on above: Performed By: #### A 1C ####[facility] Xfdxmcnwlq[address] [place], [place] [address]Dr. Garima Pulliam HEMOGRAM AND PLATELon 2022 Hematocrit (Bld) [Volume fraction] 45.7 % Normal 42.0-54.0 [facility] [place] Comment on above: Performed By: #### H H ####[facility] Qyfhihpeye[address] [place], [place] [address]Dr. Garima Pulliam Hemoglobin (Bld) [Mass/Vol] 15.1 g/dL Normal 14.0-18.0 [facility] [place] Comment on above: Performed By: #### H H ####[facility] Wirdkdufpz04[address] [place], [place] [address]Dr. Garima Pulliam MCH (RBC) [Entitic mass] 30.0 pg Normal 25.9-34.0 [facility] [place] Comment on above: Performed By: #### H H ####[facility] Fkwlwwixpv[address] [place], [place] [address]Dr. Garima Pulliam MCHC (RBC) [Mass/Vol] 33.0 g/dL Normal 29.9-35.2 [facility] Comment on above: Performed By: #### H H ####[facility] Uoorlosmlr8[address] [place], [place] [address]Dr. Garima Pulliam MCV (RBC) [Entitic vol] 90.7 fL Normal 80.0-94.0 [facility] [place] Comment on above: Performed By: #### H H ####[facility] Mitbfaaods[address] [place], [place] [address]Dr. Garima Pulliam PLT 222 103/ul Normal 150-450 [facility] Comment on above: Performed By: #### H H ####[facility] Adkwcxmege5798 [place] [phone]. Garima Pulliam RBC 5.04 106/ul Normal 4.70-6.10 [facility] [place] Comment on above: Performed By: #### H H ####[facility] Giktuenqoy0776 [place] [phone]. Garima Pulliam WBC 8.7 103/ul Normal 4.0-11.0 [facility] [place] Comment on above: Performed By: #### H H ####[facility] Mluzqshvlt0804 [place] [phone]. Garima Pulliam LIPID PROFILEon 03-27-2023 CHOL-HDL RATIO NORM SEE BELOW Normal [facility] Comment on above: Result Comment: 3.3 - 4.4 LOW RISK 4.4 - 7.1 AVERAGE RISK 7.1 - 11.0 MODERATE RISK >11.0 HIGH RISK Performed By: #### C MP, BNP, LIPID ####[facility] Gvsffthgoj[address] [place] [address]Dr. Garima Pulliam Cholesterol [Mass/Vol] 113 mg/dL Normal <=200 [facility] Comment on above: Performed By: #### C MP, BNP, LIPID ####[facility] Vdpgdheepx0193 [place] [address]Dr. Garima Pulliam Cholesterol in HDL [Mass/Vol] 51 mg/dL Normal 40-60 [facility] Comment on above: Performed By: #### C MP, BNP, LIPID ####[facility] Msdpllwhud1403 [place] [address]Dr. Garima Pulliam Cholesterol in LDL [Mass/Vol] 49.8 mg/dL Normal [facility] Comment on above: Performed By: #### C MP, BNP, LIPID ####[facility] Rkhhjjdjdo3154 [place] [address]Dr. Garima Pulliam Cholesterol.total/Cho lesterol in HDL [Mass ratio] 2.2 {ratio} Normal [facility] Comment on above: Performed By: #### C MP, BNP, LIPID ####[facility] Kgnfwsepsl4426 [place] [address]Dr. Garima Pulliam HDL NORMAL > or = 60 mg/dl - LOW CARDIOVASCULAR RISK <40 mg/dl - HIGH CARDIOVASCULAR RISK Normal [facility] Comment on above: Performed By: #### C MP, BNP, LIPID ####[facility] Vdcojkhobs1511 [place] [address]Dr. Garima Pulliam LDL CALC NORMAL SEE BELOW Normal [facility] Comment on above: Result Comment: <100 mg/dl OPTIMAL 100 - 129 mg/dl NEAR OR ABOVE OPTIMAL 130 - 159 mg/dl BORDERLINE HIGH 160 - 189 mg/dl HIGH >190 mg/dl VERY HIGH Performed By: #### C MP, BNP, LIPID ####[facility] Mezncoqxlc9717 [place] [address]Dr. Garima Pulliam Triglyceride [Mass/Vol] 61 mg/dL Normal <=150 [facility] Comment on above: Performed By: #### C MP, BNP, LIPID ####[facility] Hnkloajdqj2996 [place] [address]Dr. Garima Pulliam VLDL CALC 12.2 mg/dL Normal [facility] Comment on above: Performed By: #### C MP, BNP, LIPID ####[facility] Pkzyqimrgc2814 [place] [address]Dr. Garima Pulliam PROF 14(COMP METB)on 023 Albumin [Mass/Vol] 3.5 g/dL Normal 3.4-5.0 [facility] Comment on above: Performed By: #### C MP, BNP, LIPID ####[facility] Ogfoqcbwgn1538 [place] [address]Dr. Garima Pulliam Albumin/Globulin [Mass ratio] 1.2 {ratio} Normal [facility] Comment on above: Performed By: #### C MP, BNP, LIPID ####[facility] Szppqfokrr9103 [place] [address]Dr. Garima Pulliam ALP [Catalytic activity/Vol] 82 U/L Normal 46-116 [facility] Comment on above: Performed By: #### C MP, BNP, LIPID ####[facility] Wphayukznt3432 [place] [address]Dr. Garima Pulliam ALT [Catalytic activity/Vol] 33 U/L Normal 16-63 [facility] Comment on above: Performed By: #### C MP, BNP, LIPID ####[facility] Ygftqmkoit1834 [place] [address]Dr. Garima Pulliam Anion gap [Moles/Vol] 9.9 mmol/L Normal [facility] Comment on above: Performed By: #### C MP, BNP, LIPID ####[facility] Fbclvhwuwr0378 [place] [address]Dr. Garima Pulliam AST [Catalytic activity/Vol] 24 U/L Normal 15-37 [facility] Comment on above: Performed By: #### C MP, BNP, LIPID ####[facility] Uygpuxargs4599 [place] [address]Dr. Garima Pulliam Bilirubin [Mass/Vol] 0.6 mg/dL Normal 0.2-1.0 [facility] Comment on above: Performed By: #### C MP, BNP, LIPID ####[facility] Nlyqjbtfly3454 [place] [address]Dr. Garima Pulliam Calcium [Mass/Vol] 9.2 mg/dL Normal 8.5-10.1 [facility] Comment on above: Performed By: #### C MP, BNP, LIPID ####[facility] Jqynjziwjm5742 [place] [address]Dr. Garima Pulliam Chloride [Moles/Vol] 106 mmol/L Normal 98-107 [facility] Comment on above: Performed By: #### C MP, BNP, LIPID ####[facility] Athknginwd1084 [place] [address]Dr. Garima Pulliam CO2 [Moles/Vol] 32.3 mmol/L Critically high 21.0-32.0 [facility] Comment on above: Performed By: #### C MP, BNP, LIPID ####[facility] Zatielvjtc0965 [place] [address]Dr. Garima Pulliam Creatinine [Mass/Vol] 0.70 mg/dL Normal 0.70-1.30 [facility] Comment on above: Performed By: #### C MP, BNP, LIPID ####[facility] Jryjyanubg7319 [place] [phone]. Garima Pulliam EGFR-AF EMIRATI >60 Normal >=60 [facility] Comment on above: Performed By: #### C MP, BNP, LIPID ####[facility] Iafttwpzpr9851 [place] [phone]. Garima Pulliam EGFR-NON AF EMIRATI >60 Normal >=60 [facility] Comment on above: Performed By: #### C MP, BNP, LIPID ####[facility] Pwznymbkhk1663 [place] [address]Dr. Garima Pulliam Globulin (S) [Mass/Vol] 2.9 g/dL Normal [facility] Comment on above: Performed By: #### C MP, BNP, LIPID ####[facility] Zmugzgqwit1445 [place] [address]Dr. Garima Pulliam Glucose [Mass/Vol] 111 mg/dL Critically high 74-106 [facility] Comment on above: Performed By: #### C MP, BNP, LIPID ####[facility] Wxwikjcjss3901 [place] [address]Dr. Garima Pulliam Potassium [Moles/Vol] 4.2 mmol/L Normal 3.5-5.1 [facility] Comment on above: Performed By: #### C MP, BNP, LIPID ####[facility] Tuazgmngns4440 [place] [address]Dr. Garima Pulliam Protein [Mass/Vol] 6.4 g/dL Normal 6.4-8.2 [facility] Comment on above: Performed By: #### C MP, BNP, LIPID ####[facility] Gkbtfbzfra8404 [place] [address]Dr. Garima Pulliam Sodium [Moles/Vol] 144 mmol/L Normal 136-145 [facility] Comment on above: Performed By: #### C MP, BNP, LIPID ####[facility] Elpazblitw9193 [place] [address]Dr. Garima Pulliam Urea nitrogen [Mass/Vol] 7.0 mg/dL Normal 7.0-18.0 [facility] Comment on above: Performed By: #### C MP, BNP, LIPID ####[facility] Djmoeugikh264[address] [place], [place] [address]Dr. Garima Pulliam Urea nitrogen/Creatinine [Mass ratio] 10.0 mg/mg Normal [facility] Comment on above: Performed By: #### C MP, BNP, LIPID ####[facility] Vndgelnbmu68[address] [place], [place] [address]Dr. Garima Pulliam BNPon 03-22-2023 Natriuretic peptide B (Bld) [Mass/Vol] 103.0 pg/mL Normal <=900.0 [facility] Comment on above: Performed By: #### B PARAMEDICAL AIDE, BMP ####[facility] Rpqxvupwdi174[address] [place], [place] [address]Dr. Garima Pulliam CBC AUTO DIFFon 03-22-2023 BASO # 0.0 103/ul Normal 0.0-0.1 [facility] Comment on above: Performed By: #### C BC ####[facility] Gloghwbnas[address] [place], [place] [address]Dr. Garima Heraclio Basophils/100 WBC (Bld) 0.3 % Normal 0.2-2.0 [facility] Comment on above: Performed By: #### C BC ####[facility] Cacfeedrco[address] [place], [place] [address]Dr. Garima Pulliam EO # 0.2 103/ul Normal 0.0-0.7 [facility] Comment on above: Performed By: #### C BC ####[facility] Nhjcpqypiu[address] [place], [place] [address]Dr. Garima Pulliam Eosinophils/100 WBC (Bld) 2.2 % Normal 0.9-7.0 [facility] Comment on above: Performed By: #### C BC ####[facility] Patfnsinwp[address] [place], [place] [address]Dr. Garima Pulliam Erythrocyte distribution width (RBC) [Ratio] 13.2 % Normal 11.0-15.0 [facility] Comment on above: Performed By: #### C BC ####[facility] Lacsdwhrfn0611 [place] [phone]. Garima Pulliam Hematocrit (Bld) [Volume fraction] 43.4 % Normal 42.0-54.0 [facility] Comment on above: Performed By: #### C BC ####[facility] Svatvogsxl6890 [place] [address]Dr. Garima Heraclio Hemoglobin (Bld) [Mass/Vol] 14.3 g/dL Normal 14.0-18.0 [facility] Comment on above: Performed By: #### C BC ####[facility] Nibpgamgbg8332 [place] [address]Dr. Garima Pulliam IG # 0.02 10e3/ul Normal 0.00-0.03 [facility] Comment on above: Performed By: #### C BC ####[facility] Uhuzhtkcqv5749 [place] [address]Dr. Garima Pulliam IG % 0.3 % Normal 0.0-0.5 [facility] Comment on above: Performed By: #### C BC ####[facility] Bhvbglnuvn0002 [place] [address]Dr. Chapisrenu Pulliam LYMPH # 2.0 103/ul Normal 1.2-3.8 [facility] Comment on above: Performed By: #### C BC ####[facility] Sdeqfjifdl9451 [place] [address]Dr. Chapisrenu Pulliam Lymphocytes/100 WBC (Bld) 24.8 % Normal 20.5-60.0 [facility] Comment on above: Performed By: #### C BC ####[facility] Dpsnxtkbbb4324 [place] [address]Dr. Chapisrenu Pulliam MANUAL DIFF REQ NO Normal [facility] Comment on above: Performed By: #### C BC ####[facility] Vcygadzlot8702 [place] [address]Dr. Garima Heraclio MCH (RBC) [Entitic mass] 30.0 pg Normal 25.9-34.0 [facility] Comment on above: Performed By: #### C BC ####[facility] Nzwqrnodcs[address] [place], [place] [address]Dr. Garima Pulliam MCHC (RBC) [Mass/Vol] 32.9 g/dL Normal 29.9-35.2 [facility] Comment on above: Performed By: #### C BC ####[facility] Eobvvlzphp4294 [place] [phone]. Garima Pulliam MCV (RBC) [Entitic vol] 91.0 fL Normal 80.0-94.0 [facility] Comment on above: Performed By: #### C BC ####[facility] Awjaisxrnw7284 [place] [phone]. Garima Heraclio MONO # 0.8 103/ul Normal 0.3-0.8 [facility] Comment on above: Performed By: #### C BC ####[facility] Gsbzlybflr2085 [place] [address]Dr. Chapisrenu Pulliam Monocytes/100 WBC (Bld) 9.7 % Normal 1.7-12.0 [facility] Comment on above: Performed By: #### C BC ####[facility] Ovywfvssuv4415 [place] [address]Dr. Garima Pulliam NEUT # 4.9 103/ul Normal 1.4-6.5 [facility] Comment on above: Performed By: #### C BC ####[facility] Inaeltnclm4005 [place] [phone]. Garima Heraclio Neutrophils/100 WBC (Bld) 62.7 % Normal 43.0-75.0 [facility] Comment on above: Performed By: #### C BC ####[facility] Lnvgsvcwps0766 [place] [phone]. Garima Heraclio Platelet mean volume (Bld) [Entitic vol] 8.8 fL Critically low 9.5-13.5 [facility] Comment on above: Performed By: #### C BC ####[facility] Mdteqevdbg5456 [place] [phone]. Garima Heraclio PLT 198 103/ul Normal 150-450 [facility] Comment on above: Performed By: #### C BC ####[facility] Fvurfphgqo8173 [place] [phone]. Garima Heraclio RBC 4.77 106/ul Normal 4.70-6.10 [facility] Comment on above: Performed By: #### C BC ####[facility] Hderiyiflv9864 [place] [phone]. Garima Heraclio WBC 7.9 103/ul Normal 4.0-11.0 [facility] Comment on above: Performed By: #### C BC ####[facility] Vxczgnpzgt4458 [place] [phone]. Garima Heraclio D-DIMERon 03-22-2023 D-DIMER 0.85 mg/L FEU Critically high <=0.59 [facility] Comment on above: Performed By: #### D DIM ####[facility] Dzhtirbbwj4261 [place] [address]Dr. Garima Pulliam D-DIMER COMMENTS SEE BELOW Normal [facility] Comment on above: Result Comment: [...] generalized hospitalization. Performed By: #### D DIM ####[facility] Eijkquudaz138[address] [place], [place] [address]Dr. Garima Pulliam PROF CHEM 8 (BAS METB)on Anion gap [Moles/Vol] 6.9 mmol/L Normal [facility] Comment on above: Performed By: #### B PARAMEDICAL AIDE, BMP ####[facility] Cuqfornjsf8980 [place] [address]Dr. Garima Pulliam Calcium [Mass/Vol] 8.9 mg/dL Normal 8.5-10.1 [facility] Comment on above: Performed By: #### B PARAMEDICAL AIDE, BMP ####[facility] Axlvugedzf2289 [place] [address]Dr. Garima Pulliam Chloride [Moles/Vol] 101 mmol/L Normal 98-107 [facility] Comment on above: Performed By: #### B PARAMEDICAL AIDE, BMP ####[facility] Brmsmvzcbu38[address] [place], [place] [address]Dr. Chapisrenu Heraclio CO2 [Moles/Vol] 30.7 mmol/L Normal 21.0-32.0 [facility] Comment on above: Performed By: #### B PARAMEDICAL AIDE, BMP ####[facility] Iubthwlduk[address] [place], [place] [address]Dr. Garima Pulliam Creatinine [Mass/Vol] 0.82 mg/dL Normal 0.70-1.30 [facility] Comment on above: Performed By: #### B PARAMEDICAL AIDE, BMP ####[facility] Ampbupjmeh37[address] [place], [place] [address]Dr. Garima Pulliam EGFR-AF EMIRATI >60 Normal >=60 [facility] Comment on above: Performed By: #### B PARAMEDICAL AIDE, BMP ####[facility] Vaciaztlqu4788[address] [place], [place] [address]Dr. Chapisrenu Heraclio EGFR-NON AF EMIRATI >60 Normal >=60 [facility] Comment on above: Performed By: #### B PARAMEDICAL AIDE, BMP ####[facility] Lvyixhtmce030[address] [place], [place] [address]Dr. Garima Pulliam Glucose [Mass/Vol] 339 mg/dL Critically high 74-106 [facility] Comment on above: Performed By: #### B PARAMEDICAL AIDE, BMP ####[facility] Kaoptsvbud954[address] [place], [place] [address]Dr. Garima Pulliam Potassium [Moles/Vol] 3.6 mmol/L Normal 3.5-5.1 [facility] Comment on above: Performed By: #### B PARAMEDICAL AIDE, BMP ####[facility] Bccmtxywys[address] [place], [place] [address]Dr. Garima Pulliam Sodium [Moles/Vol] 135 mmol/L Critically low 136-145 [facility] Comment on above: Performed By: #### B PARAMEDICAL AIDE, BMP ####[facility] Jgenfokabc598[address] [place], [place] [address]Dr. Garima Pulliam Urea nitrogen [Mass/Vol] 11.0 mg/dL Normal 7.0-18.0 [facility] Comment on above: Performed By: #### B PARAMEDICAL AIDE, BMP ####[facility] Wbuwxuehwo195[address] [place], [place] [address]Dr. Garima Pulliam Urea nitrogen/Creatinine [Mass ratio] 13.4 mg/mg Normal [facility] Comment on above: Performed By: #### B PARAMEDICAL AIDE, BMP ####[facility] Fdgutxgauv368[address] [place], [place] [address]Dr. Garima Pulliam US VERONICA DOP LEG BILon 023 US VERONICA DOP LEG BENOIT Normal [facility] BNPon 03-18-2023 Natriuretic peptide B (Bld) [Mass/Vol] 226.0 pg/mL Normal <=900.0 [facility] Comment on above: Performed By: #### B PARAMEDICAL AIDE, BMP ####[facility] Vddtkbbpvo023[address] [place], [place] [address]Dr. Garima Pulliam CBC AUTO DIFFon 03-18-2023 BASO # 0.0 103/ul Normal 0.0-0.1 [facility] Comment on above: Performed By: #### C BC ####[facility] Qaorjiybkj912[address] [place], [place] [address]Dr. Garima Heraclio Basophils/100 WBC (Bld) 0.2 % Normal 0.2-2.0 [facility] Comment on above: Performed By: #### C BC ####[facility] Fzhebxcivh4940[address] [place], [place] [address]Dr. Garima Pulliam EO # 0.3 103/ul Normal 0.0-0.7 [facility] Comment on above: Performed By: #### C BC ####[facility] Pgxilwdhco8350[address] [place], [place] [address]Dr. Garima Heraclio Eosinophils/100 WBC (Bld) 2.5 % Normal 0.9-7.0 [facility] Comment on above: Performed By: #### C BC ####[facility] Nszfibzvki799[address] [place], [place] [address]Dr. Garima Heraclio Erythrocyte distribution width (RBC) [Ratio] 13.2 % Normal 11.0-15.0 [facility] Comment on above: Performed By: #### C BC ####[facility] Kdvdkqfwpa5313 [place] [address]DrAdalberto Pulliam Hematocrit (Bld) [Volume fraction] 45.8 % Normal 42.0-54.0 [facility] Comment on above: Performed By: #### C BC ####[facility] Caotmqxwur6436 [place] [address]DrAdalberto Pulliam Hemoglobin (Bld) [Mass/Vol] 15.3 g/dL Normal 14.0-18.0 [facility] Comment on above: Performed By: #### C BC ####[facility] Lwktpixixx114[address] [place], [place] [address]DrAdalberto Pulliam IG # 0.02 10e3/ul Normal 0.00-0.03 [facility] Comment on above: Performed By: #### C BC ####[facility] Dcokeelwja[address] [place], [place] [address]DrAdalberto Pulliam IG % 0.2 % Normal 0.0-0.5 [facility] Comment on above: Performed By: #### C BC ####[facility] Zrdjodhtmf637[address] [place], [place] [address]DrAdalberto Pulliam LYMPH # 1.8 103/ul Normal 1.2-3.8 [facility] Comment on above: Performed By: #### C BC ####[facility] Mfxxgldepj17[address] [place], [place] [address]DrAdalberto Pulliam Lymphocytes/100 WBC (Bld) 18.3 % Critically low 20.5-60.0 [facility] Comment on above: Performed By: #### C BC ####[facility] Gybeweeoht279[address] [place], [place] [address]DrAdalberto Pulliam MANUAL DIFF REQ NO Normal [facility] Comment on above: Performed By: #### C BC ####[facility] Hrkvdhqmns8128 [place] [address]DrAdalberto Pulliam MCH (RBC) [Entitic mass] 30.5 pg Normal 25.9-34.0 [facility] Comment on above: Performed By: #### C BC ####[facility] Jdkixrtdki4982 [place] [address]DrAdalberto Pulliam MCHC (RBC) [Mass/Vol] 33.4 g/dL Normal 29.9-35.2 [facility] Comment on above: Performed By: #### C BC ####[facility] Eblssjtkei2705 [place] [address]DrAdalberto Pulliam MCV (RBC) [Entitic vol] 91.2 fL Normal 80.0-94.0 [facility] Comment on above: Performed By: #### C BC ####[facility] Bsmkpsbsri177[address] [place], [place] [address]DrAdalberto Pulliam MONO # 0.8 103/ul Normal 0.3-0.8 [facility] Comment on above: Performed By: #### C BC ####[facility] Qsmdmohtab2985[address] [place], [place] [address]DrAdalberto Pulliam Monocytes/100 WBC (Bld) 7.6 % Normal 1.7-12.0 [facility] Comment on above: Performed By: #### C BC ####[facility] Wurohkjsza8399[address] [place], [place] [address]DrAdalberto Pulliam NEUT # 7.0 103/ul Critically high 1.4-6.5 [facility] Comment on above: Performed By: #### C BC ####[facility] Mhyeghfakh476[address] [place], [place] [address]DrAdalberto Pulliam Neutrophils/100 WBC (Bld) 71.2 % Normal 43.0-75.0 [facility] Comment on above: Performed By: #### C BC ####[facility] Evrzgcydwn759[address] [place], [place] [address]DrAdalberto Pulliam Platelet mean volume (Bld) [Entitic vol] 8.9 fL Critically low 9.5-13.5 [facility] Comment on above: Performed By: #### C BC ####[facility] Sltauqiebf7340[address] [place], [place] [address]DrAdalberto Pulliam PLT 217 103/ul Normal 150-450 [facility] Comment on above: Performed By: #### C BC ####[facility] Vqpceiezch3127 [place] [address]Dr. Garima Heraclio RBC 5.02 106/ul Normal 4.70-6.10 [facility] Comment on above: Performed By: #### C BC ####[facility] Onrnhmrnff78[address] [place], [place] [address]Dr. Garima Pulliam WBC 9.8 103/ul Normal 4.0-11.0 [facility] Comment on above: Performed By: #### C BC ####[facility] Igurugakvs019[address] [place], [place] [address]Dr. Garima Heraclio CRPon 03-18-2023 CRP 0.1 mg/dL Normal <=1.0 [facility] Comment on above: Performed By: #### C RP ####[facility] Gqmvfprcjc019[address] [place], [place] [address]Dr. Garima Heraclio PROF CHEM 8 (BAS METB)on Anion gap [Moles/Vol] 10.4 mmol/L Normal [facility] Comment on above: Performed By: #### B PARAMEDICAL AIDE, BMP ####[facility] Qwkzuuigau[address] [place], [place] [address]Dr. Garima Heraclio Calcium [Mass/Vol] 8.8 mg/dL Normal 8.5-10.1 [facility] Comment on above: Performed By: #### B PARAMEDICAL AIDE, BMP ####[facility] Dhfirokzsi485[address] [place], [place] [address]Dr. Garima Heraclio Chloride [Moles/Vol] 97 mmol/L Critically low 98-107 [facility] Comment on above: Performed By: #### B PARAMEDICAL AIDE, BMP ####[facility] Qqlfqcfwkc94[address] [place], [place] [address]Dr. Garima Pulliam CO2 [Moles/Vol] 31.2 mmol/L Normal 21.0-32.0 [facility] Comment on above: Performed By: #### B PARAMEDICAL AIDE, BMP ####[facility] Fqzxzfxmlu047[address] [place], [place] [address]Dr. Garima Pulliam Creatinine [Mass/Vol] 0.91 mg/dL Normal 0.70-1.30 [facility] Comment on above: Performed By: #### B PARAMEDICAL AIDE, BMP ####[facility] Seneszkpmp6908 [place] [address]Dr. Garima Pulliam EGFR-AF EMIRATI >60 Normal >=60 [facility] Comment on above: Performed By: #### B PARAMEDICAL AIDE, BMP ####[facility] Blxfmtldnc3275 [place] [phone]. Garima Pulliam EGFR-NON AF EMIRATI >60 Normal >=60 [facility] Comment on above: Performed By: #### B PARAMEDICAL AIDE, BMP ####[facility] Pjgnbgxssr5284 [place] [address]Dr. Garima Pulliam Glucose [Mass/Vol] 315 mg/dL Critically high 74-106 T [facility] Comment on above: Performed By: #### B PARAMEDICAL AIDE, BMP ####[facility] Isqawfjicw9513 [place] [address]Dr. Garima Pulliam Potassium [Moles/Vol] 3.6 mmol/L Normal 3.5-5.1 [facility] Comment on above: Performed By: #### B PARAMEDICAL AIDE, BMP ####[facility] Owgkqhcxdx1100 [place] [address]Dr. Garima Pulliam Sodium [Moles/Vol] 135 mmol/L Critically low 136-145 Th [facility] Comment on above: Performed By: #### B PARAMEDICAL AIDE, BMP ####[facility] Trkkhgaysy6331 [place] [address]Dr. Gairma Pulliam Urea nitrogen [Mass/Vol] 7.0 mg/dL Normal 7.0-18.0 [facility] Comment on above: Performed By: #### B PARAMEDICAL AIDE, BMP ####[facility] Afaneknwwx4676 [place] [address]Dr. Garima Pulliam Urea nitrogen/Creatinine [Mass ratio] 7.7 mg/mg Normal [facility] Comment on above: Performed By: #### B PARAMEDICAL AIDE, BMP ####[facility] Uiehelmjpo6202 [place] [address]Dr. Garima Pulliam SED RATE WESTERGRENon 2022 SED RATE 8 mm/hr Normal <=20 [facility] Comment on above: Performed By: #### S EDR ####[facility] Zbhspcxigc[address] [place], [place] [address]Dr. Garima Pulliam BNPon 03-16-2023 Natriuretic peptide B (Bld) [Mass/Vol] 241.0 pg/mL Normal <=900.0 [facility] Comment on above: Performed By: #### B PARAMEDICAL AIDE, BMP, HSTROPN ####[facility] Thulyztkdc67[address] [place], [place] [address]Dr. Garima Heraclio CBC AUTO DIFFon 03-16-2023 BASO # 0.0 103/ul Normal 0.0-0.1 [facility] Comment on above: Performed By: #### C BC ####[facility] Idhavlrwxm[address] [place], [place] [address]Dr. Chapisrenu Pulliam Basophils/100 WBC (Bld) 0.2 % Normal 0.2-2.0 [facility] Comment on above: Performed By: #### C BC ####[facility] Owmjbbneum[address] [place], [place] [address]Dr. Garima Pulliam EO # 0.2 103/ul Normal 0.0-0.7 [facility] Comment on above: Performed By: #### C BC ####[facility] Yionqhpymv[address] [place], [place] [address]Dr. Chapisrenu Pulliam Eosinophils/100 WBC (Bld) 2.7 % Normal 0.9-7.0 [facility] Comment on above: Performed By: #### C BC ####[facility] Dhkugefkti70[address] [place], [place] [address]Dr. Garima Pulliam Erythrocyte distribution width (RBC) [Ratio] 13.1 % Normal 11.0-15.0 [facility] Comment on above: Performed By: #### C BC ####[facility] Andvgexsrb25[address] [place], [place] [address]Dr. Garima Pulliam Hematocrit (Bld) [Volume fraction] 41.8 % Critically low 42.0-54.0 [facility] Comment on above: Performed By: #### C BC ####[facility] Gfgnzlejlu[address] [place] [address]Dr. Garima Pulliam Hemoglobin (Bld) [Mass/Vol] 14.0 g/dL Normal 14.0-18.0 [facility] Comment on above: Performed By: #### C BC ####[facility] Eiobhqbpfk[address] [place] [address]Dr. Garima Pulliam IG # 0.03 10e3/ul Normal 0.00-0.03 [facility] Comment on above: Performed By: #### C BC ####[facility] Tsyttqsfln6[address] [place] [address]Dr. Garima Pulliam IG % 0.3 % Normal 0.0-0.5 [facility] Comment on above: Performed By: #### C BC ####[facility] Vulbpdwjrx[address] [place], [place] [address]Dr. Chapisrenu Pulliam LYMPH # 2.1 103/ul Normal 1.2-3.8 [facility] Comment on above: Performed By: #### C BC ####[facility] Evpkkekqxe63[address] [place], [place] [address]Dr. Chapisrenu Pulliam Lymphocytes/100 WBC (Bld) 24.2 % Normal 20.5-60.0 [facility] Comment on above: Performed By: #### C BC ####[facility] Rcjyctxffc4[address] [place] [address]Dr. Garima Pulliam MANUAL DIFF REQ NO Normal [facility] Comment on above: Performed By: #### C BC ####[facility] Ggevvvmunr5139 [place] [address]Dr. Garima Pulliam MCH (RBC) [Entitic mass] 30.2 pg Normal 25.9-34.0 [facility] Comment on above: Performed By: #### C BC ####[facility] Xdcbqvojys4912 [place] [address]Dr. Garima Pulliam MCHC (RBC) [Mass/Vol] 33.5 g/dL Normal 29.9-35.2 [facility] Comment on above: Performed By: #### C BC ####[facility] [address]iazezdqum[address] [place] [phone]. Garima Pulliam MCV (RBC) [Entitic vol] 90.1 fL Normal 80.0-94.0 [facility] Comment on above: Performed By: #### C BC ####[facility] Nqjrpwevru4077 [place] [phone]. Garima Pulliam MONO # 0.6 103/ul Normal 0.3-0.8 [facility] Comment on above: Performed By: #### C BC ####[facility] Hekhggsyot3409 [place] [address]Dr. Garima Heraclio Monocytes/100 WBC (Bld) 7.4 % Normal 1.7-12.0 [facility] Comment on above: Performed By: #### C BC ####[facility] Snkkdqulei[address] [place], [place] [address]Dr. Garima Pulliam NEUT # 5.6 103/ul Normal 1.4-6.5 [facility] Comment on above: Performed By: #### C BC ####[facility] Zsoaapghdr187[address] [place], [place] [address]Dr. Garima Heraclio Neutrophils/100 WBC (Bld) 65.2 % Normal 43.0-75.0 [facility] Comment on above: Performed By: #### C BC ####[facility] Xffazpvfga2163 [place] [phone]. Garima Heraclio Platelet mean volume (Bld) [Entitic vol] 8.7 fL Critically low 9.5-13.5 [facility] Comment on above: Performed By: #### C BC ####[facility] [address] [place], [place] [address]Dr. Garima Heraclio PLT 195 103/ul Normal 150-450 [facility] Comment on above: Performed By: #### C BC ####[facility] Nukkzxjqun3972 [place] [phone]. Garima Pulliam RBC 4.64 106/ul Critically low 4.70-6.10 [facility] Comment on above: Performed By: #### C BC ####[facility] Ityalxrmil0510 [place] [address]Dr. Garima Pulliam WBC 8.6 103/ul Normal 4.0-11.0 [facility] Comment on above: Performed By: #### C BC ####[facility] Dakmbkbrut2653 [place] [address]Dr. Garima Pulliam PROF CHEM 8 (BAS METB)on Anion gap [Moles/Vol] 6.7 mmol/L Normal [facility] Comment on above: Performed By: #### B PARAMEDICAL AIDE, BMP, HSTROPN ####[facility] Hokkbzdeoy[address] [place] [address]Dr. Garima Pulliam Calcium [Mass/Vol] 8.8 mg/dL Normal 8.5-10.1 [facility] Comment on above: Performed By: #### B PARAMEDICAL AIDE, BMP, HSTROPN ####[facility] Izqfsvjotc[address] [place], [place] [address]Dr. Garima Pulliam Chloride [Moles/Vol] 106 mmol/L Normal 98-107 [facility] Comment on above: Performed By: #### B PARAMEDICAL AIDE, BMP, HSTROPN ####[facility] Jkhasywtgp[address] [place], [place] [address]Dr. Garima Pulliam CO2 [Moles/Vol] 31.4 mmol/L Normal 21.0-32.0 [facility] Comment on above: Performed By: #### B PARAMEDICAL AIDE, BMP, HSTROPN ####[facility] Ojiaulmvvz[address] [place], [place] [address]Dr. Garima Pulliam Creatinine [Mass/Vol] 0.75 mg/dL Normal 0.70-1.30 [facility] Comment on above: Performed By: #### B PARAMEDICAL AIDE, BMP, HSTROPN ####[facility] Kobuoajatj[address] [place] [address]Dr. Garima Pulliam EGFR-AF EMIRATI >60 Normal >=60 [facility] Comment on above: Performed By: #### B PARAMEDICAL AIDE, BMP, HSTROPN ####[facility] Mudvtljrfg6107 [place] [address]Dr. Garima Pulliam EGFR-NON AF EMIRATI >60 Normal >=60 [facility] Comment on above: Performed By: #### B PARAMEDICAL AIDE, BMP, HSTROPN ####[facility] Epxusjpysy1264 [place] [address]Dr. Garima Pulliam Glucose [Mass/Vol] 161 mg/dL Critically high 74-106 [facility] Comment on above: Performed By: #### B PARAMEDICAL AIDE, BMP, HSTROPN ####[facility] Rumyodhcbv4758 [place] [address]Dr. Garima Pulliam Potassium [Moles/Vol] 4.1 mmol/L Normal 3.5-5.1 [facility] Comment on above: Performed By: #### B PARAMEDICAL AIDE, BMP, HSTROPN ####[facility] Mdpivelhsv8454 [place] [address]Dr. Garima Pulliam Sodium [Moles/Vol] 140 mmol/L Normal 136-145 [facility] Comment on above: Performed By: #### B PARAMEDICAL AIDE, BMP, HSTROPN ####[facility] Pxgngtkqgn6653 [place] [address]Dr. Garima Pulliam Urea nitrogen [Mass/Vol] 7.0 mg/dL Normal 7.0-18.0 [facility] Comment on above: Performed By: #### B PARAMEDICAL AIDE, BMP, HSTROPN ####[facility] Chakhtulta[address] [place] [address]Dr. Garima Pulliam Urea nitrogen/Creatinine [Mass ratio] 9.3 mg/mg Normal [facility] Comment on above: Performed By: #### B PARAMEDICAL AIDE, BMP, HSTROPN ####[facility] Msakiftvxy6[address] [place] [address]Dr. Garima Pulliam TROPONIN, HIGH SENSITIVITYon 03-16-2023 HSTROP 9.7 pg/mL Normal 4.0-76.1 [facility] Comment on above: Result Comment: CUT- OFF POINTS HAVE BEEN ESTABLISHED BASED ON THE FOURTH UNIVERSAL DEFINITIONS OF MYOCARDIALINFARCTION. THE UPPER REFERENCE LIMIT (URL) OF TROPONIN, DEFINED THE 99TH PERCENTILE OFcTnI DISTRIBUTION IN A REFERENCE POPULATION, HAS BEEN CONFIRMED THE DECISION THRESHOLDFOR DE DIAGNOSIS. Performed By: #### B PARAMEDICAL AIDE, BMP, HSTROPN ####[facility] Hocksjdrrv[address] [place] [address]Dr. Garima Pulliam XR CHEST 1 Von 03-16-2023 XR CHEST 1 V Normal [facility] BNPon 03-06-2023 Natriuretic peptide B (Bld) [Mass/Vol] 111.0 pg/mL Normal <=900.0 [facility] Comment on above: Performed By: #### C MP, BNP, CK ####[facility] Hnilyyogxm31[address] [place] [address]Dr. Chapisrenu Pulliam CBC AUTO DIFFon 03-06-2023 BASO # 0.0 103/ul Normal 0.0-0.1 [facility] Comment on above: Performed By: #### C BC ####[facility] Sf[address]fcanzq[address] [place], [place] [address]Dr. Garima Pulliam Basophils/100 WBC (Bld) 0.2 % Normal 0.2-2.0 [facility] Comment on above: Performed By: #### C BC ####[facility] Unvvdbsiit[address] [place], [place] [address]Dr. Garima Pulliam EO # 0.3 103/ul Normal 0.0-0.7 [facility] Comment on above: Performed By: #### C BC ####[facility] Bbohhknhdf[address] [place], [place] [address]Dr. Garima Pulliam Eosinophils/100 WBC (Bld) 3.5 % Normal 0.9-7.0 [facility] Comment on above: Performed By: #### C BC ####[facility] Gpexaemluz[address] [place], [place] [address]Dr. Garima Pulliam Erythrocyte distribution width (RBC) [Ratio] 13.3 % Normal 11.0-15.0 [facility] Comment on above: Performed By: #### C BC ####[facility] Klgzxhxbjl7[address] [place], [place] [address]Dr. Garima Pulliam Hematocrit (Bld) [Volume fraction] 43.7 % Normal 42.0-54.0 [facility] Comment on above: Performed By: #### C BC ####[facility] Zqhpfnhyfc0358 [place] [address]Dr. Garima Pulliam Hemoglobin (Bld) [Mass/Vol] 14.7 g/dL Normal 14.0-18.0 [facility] Comment on above: Performed By: #### C BC ####[facility] Ontofovile26[address] [place] [address]Dr. Chapisrenu Heraclio IG # 0.03 10e3/ul Normal 0.00-0.03 [facility] Comment on above: Performed By: #### C BC ####[facility] Yjcdflirxx[address] [place], [place] [address]Dr. Garima Pulliam IG % 0.4 % Normal 0.0-0.5 [facility] Comment on above: Performed By: #### C BC ####[facility] Vezifjegor06[address] [place], [place] [address]Dr. Garima Pulliam LYMPH # 2.0 103/ul Normal 1.2-3.8 [facility] Comment on above: Performed By: #### C BC ####[facility] Hcxlubyshx[address] [place], [place] [address]DrAdalberto Pulliam Lymphocytes/100 WBC (Bld) 23.7 % Normal 20.5-60.0 [facility] Comment on above: Performed By: #### C BC ####[facility] Sdjixmlpra9786 [place] [address]Dr. Garima Pulliam MANUAL DIFF REQ NO Normal [facility] Comment on above: Performed By: #### C BC ####[facility] Vsoxbfdrjc6678 [place] [phone] Pulliam MCH (RBC) [Entitic mass] 30.1 pg Normal 25.9-34.0 [facility] Comment on above: Performed By: #### C BC ####[facility] Uxapxweejg1711 [place] [phone]. Garima Pulliam MCHC (RBC) [Mass/Vol] 33.6 g/dL Normal 29.9-35.2 [facility] Comment on above: Performed By: #### C BC ####[facility] Brmazjvplo5[address] [place] [address]Dr. Garima Heraclio MCV (RBC) [Entitic vol] 89.4 fL Normal 80.0-94.0 [facility] Comment on above: Performed By: #### C BC ####[facility] Gvhlczhrxa1332 [place] [address]Dr. Garima Pulliam MONO # 0.8 103/ul Normal 0.3-0.8 [facility] Comment on above: Performed By: #### C BC ####[facility] Cybnljllgq7471 [place] [address]Dr. Garima Pulliam Monocytes/100 WBC (Bld) 9.0 % Normal 1.7-12.0 [facility] Comment on above: Performed By: #### C BC ####[facility] Apnycwschr[address] [place], [place] [address]Dr. Garima uPlliam NEUT # 5.4 103/ul Normal 1.4-6.5 [facility] Comment on above: Performed By: #### C BC ####[facility] Hfwsmuiixu067[address] [place], [place] [address]Dr. Garima Pluliam Neutrophils/100 WBC (Bld) 63.2 % Normal 43.0-75.0 [facility] Comment on above: Performed By: #### C BC ####[facility] Gnnnnperxm15[address] [place], [place] [address]Dr. Garima Pulliam Platelet mean volume (Bld) [Entitic vol] 9.0 fL Critically low 9.5-13.5 [facility] Comment on above: Performed By: #### C BC ####[facility] Olflxcgebj[address] [place], [place] [address]Dr. Garima Pulliam PLT 218 103/ul Normal 150-450 [facility] Comment on above: Performed By: #### C BC ####[facility] Mwxohymnph1226 [place] [phone]. Garima Pulliam RBC 4.89 106/ul Normal 4.70-6.10 [facility] Comment on above: Performed By: #### C BC ####[facility] Aolvcykcsc6305 [place] [address]Dr. Garima Pulliam WBC 8.5 103/ul Normal 4.0-11.0 [facility] Comment on above: Performed By: #### C BC ####[facility] Hvhadftplt2423 [place] [address]Dr. Garima Pulliam CPKon 03-06-2023 CK [Catalytic activity/Vol] 191 U/L Normal 39-308 [facility] Comment on above: Performed By: #### C MP, BNP, CK ####[facility] Bobsinxvmx3045 [place] [address]Dr. Garima Pulliam PROF 14(COMP METB)on 023 Albumin [Mass/Vol] 3.6 g/dL Normal 3.4-5.0 [facility] Comment on above: Performed By: #### C MP, BNP, CK ####[facility] Aljafucubr[address] [place] [address]Dr. Garima Pulliam Albumin/Globulin [Mass ratio] 1.2 {ratio} Normal [facility] Comment on above: Performed By: #### C MP, BNP, CK ####[facility] Gafbcaglhx3669 [place] [address]Dr. Garima Pulliam ALP [Catalytic activity/Vol] 91 U/L Normal 46-116 [facility] Comment on above: Performed By: #### C MP, BNP, CK ####[facility] Dboxxpcpfz6705 [place] [address]Dr. Garima Pulliam ALT [Catalytic activity/Vol] 33 U/L Normal 16-63 [facility] Comment on above: Performed By: #### C MP, BNP, CK ####[facility] Sytjocvfys1642 [place] [address]Dr. Garima Pulliam Anion gap [Moles/Vol] 10.3 mmol/L Normal [facility] Comment on above: Performed By: #### C MP, BNP, CK ####[facility] Vdsrizzvjj4630 [place] [address]Dr. Garima Pulliam AST [Catalytic activity/Vol] 17 U/L Normal 15-37 [facility] Comment on above: Performed By: #### C MP, BNP, CK ####[facility] Najpbzhtfi7838 [place] [address]Dr. Garima Pulliam Bilirubin [Mass/Vol] 0.4 mg/dL Normal 0.2-1.0 [facility] Comment on above: Performed By: #### C MP, BNP, CK ####[facility] Osemtxevic4338 [place] [address]Dr. Garima Pulliam Calcium [Mass/Vol] 9.1 mg/dL Normal 8.5-10.1 [facility] Comment on above: Performed By: #### C MP, BNP, CK ####[facility] Xchkotwabf6491 [place] [address]Dr. Garima Pulliam Chloride [Moles/Vol] 102 mmol/L Normal 98-107 [facility] Comment on above: Performed By: #### C MP, BNP, CK ####[facility] Voljsmmakq1001 [place] [address]Dr. Garima Pulliam CO2 [Moles/Vol] 29.7 mmol/L Normal 21.0-32.0 [facility] Comment on above: Performed By: #### C MP, BNP, CK ####[facility] Irukekvxwb0604 [place] [address]Dr. Garima Pulliam Creatinine [Mass/Vol] 0.79 mg/dL Normal 0.70-1.30 [facility] Comment on above: Performed By: #### C MP, BNP, CK ####[facility] Wzlitvvjss0524 [place] [address]Dr. Garima Pulliam EGFR-AF EMIRATI >60 Normal >=60 [facility] Comment on above: Performed By: #### C MP, BNP, CK ####[facility] Hzguyxssjq1835 [place] [address]Dr. Garima Pulliam EGFR-NON AF EMIRATI >60 Normal >=60 [facility] Comment on above: Performed By: #### C MP, BNP, CK ####[facility] Ngnjmkrsom4121 [place] [address]Dr. Garima Pulliam Globulin (S) [Mass/Vol] 3.0 g/dL Normal [facility] Comment on above: Performed By: #### C MP, BNP, CK ####[facility] Mwovqpystq2888 [place] [address]Dr. Garima Pulliam Glucose [Mass/Vol] 202 mg/dL Critically high 74-106 [facility] Comment on above: Performed By: #### C MP, BNP, CK ####[facility] Fqoqxtzphg7296 [place] [address]Dr. Garima Pulliam Potassium [Moles/Vol] 4.0 mmol/L Normal 3.5-5.1 [facility] Comment on above: Performed By: #### C MP, BNP, CK ####[facility] Nczxxcadhb4232 [place] [address]Dr. Garima Pulliam Protein [Mass/Vol] 6.6 g/dL Normal 6.4-8.2 [facility] Comment on above: Performed By: #### C MP, BNP, CK ####[facility] Lootgpulub[address] [place], [place] [address]Dr. Garima Pulliam Sodium [Moles/Vol] 138 mmol/L Normal 136-145 [facility] Comment on above: Performed By: #### C MP, BNP, CK ####[facility] Jldooescal[address] [place], [place] [address]Dr. Garima Pulliam Urea nitrogen [Mass/Vol] 10.0 mg/dL Normal 7.0-18.0 [facility] Comment on above: Performed By: #### C MP, BNP, CK ####[facility] Qpxkrzvrhj1738 [place] [address]Dr. Garima Pulliam Urea nitrogen/Creatinine [Mass ratio] 12.7 mg/mg Normal [facility] Comment on above: Performed By: #### C MP, BNP, CK ####[facility] Tqtsvqbpcv6395 [place] [address]Dr. Garima Pulliam US VERONICA DOP LEG BILon 023 US VERONICA DOP LEG BENOIT Normal [facility] CBC AUTO DIFFon 01-13-2023 BASO # 0.0 103/ul Normal 0.0-0.1 [facility] Comment on above: Performed By: #### C BC ####[facility] Iixtehhute9839 [place] [phone]. Chapisrenu Pulliam Basophils/100 WBC (Bld) 0.0 % Critically low 0.2-2.0 [facility] Comment on above: Performed By: #### C BC ####[facility] Sxxngemkct0438 [place] [address]Dr. Garima Pulliam EO # 0.0 103/ul Normal 0.0-0.7 [facility] Comment on above: Performed By: #### C BC ####[facility] Plqqygpjlc[address] [place], [place] [address]Dr. Garima Pulliam Eosinophils/100 WBC (Bld) 0.0 % Critically low 0.9-7.0 [facility] Comment on above: Performed By: #### C BC ####[facility] Cnbymfvxpb9750 [place] [address]Dr. Garima Pulliam Erythrocyte distribution width (RBC) [Ratio] 13.2 % Normal 11.0-15.0 [facility] Comment on above: Performed By: #### C BC ####[facility] Eektpptbke[address] [place], [place] [address]Dr. Garima Pulliam Hematocrit (Bld) [Volume fraction] 46.7 % Normal 42.0-54.0 [facility] Comment on above: Performed By: #### C BC ####[facility] Prqzoydaww[address] [place], [place] [address]Dr. Garima Pulliam Hemoglobin (Bld) [Mass/Vol] 15.6 g/dL Normal 14.0-18.0 [facility] Comment on above: Performed By: #### C BC ####[facility] Blzxvhoerg[address] [place], [place] [address]Dr. Garima Pulliam IG # 0.01 10e3/ul Normal 0.00-0.03 [facility] Comment on above: Performed By: #### C BC ####[facility] Auwmcaclzg5537 [place] [phone]. Garima Pulliam IG % 0.2 % Normal 0.0-0.5 [facility] Comment on above: Performed By: #### C BC ####[facility] Vksxxowipr9372 [place] [phone]. Garima Pulliam LYMPH # 0.8 103/ul Critically low 1.2-3.8 [facility] Comment on above: Performed By: #### C BC ####[facility] Pyfgkkukyh4164 [place] [phone]. Garima Pulliam Lymphocytes/100 WBC (Bld) 12.7 % Critically low 20.5-60.0 [facility] Comment on above: Performed By: #### C BC ####[facility] Hexktuwvkj7899 [place] [address]Dr. Graima Pulliam MANUAL DIFF REQ NO Normal [facility] Comment on above: Performed By: #### C BC ####[facility] Usvoaknvov4665 [place] [phone]. Garima Pulliam MCH (RBC) [Entitic mass] 30.2 pg Normal 25.9-34.0 [facility] Comment on above: Performed By: #### C BC ####[facility] Glxoorxyir8630 [place] [phone]. Garima Pulliam MCHC (RBC) [Mass/Vol] 33.4 g/dL Normal 29.9-35.2 [facility] Comment on above: Performed By: #### C BC ####[facility] Qdruuuwkly6787 [place] [phone]. Garima Pulliam MCV (RBC) [Entitic vol] 90.3 fL Normal 80.0-94.0 [facility] Comment on above: Performed By: #### C BC ####[facility] Irpnjtkzhp1614 [place] [phone]. Garima Heraclio MONO # 0.1 103/ul Critically low 0.3-0.8 [facility] Comment on above: Performed By: #### C BC ####[facility] Gjeksxeakj1779 [place] [phone]. Garima Pulliam Monocytes/100 WBC (Bld) 0.9 % Critically low 1.7-12.0 [facility] Comment on above: Performed By: #### C BC ####[facility] Khvrjbapeb9318 [place] [phone]. Garima Pulliam NEUT # 5.6 103/ul Normal 1.4-6.5 [facility] Comment on above: Performed By: #### C BC ####[facility] Xizmtyiicy1229 [place] [phone]. Garima Pulliam Neutrophils/100 WBC (Bld) 86.2 % Critically high 43.0-75.0 [facility] Comment on above: Performed By: #### C BC ####[facility] Uwqzkynvpj4078 [place] [address]Dr. Garima Pulliam Platelet mean volume (Bld) [Entitic vol] 9.1 fL Critically low 9.5-13.5 [facility] Comment on above: Performed By: #### C BC ####[facility] Vcozjlhyci[address] [place], [place] [address]Dr. Garima Pulliam PLT 169 103/ul Normal 150-450 [facility] Comment on above: Performed By: #### C BC ####[facility] Rhhrjjqzcr380[address] [place], [place] [address]Dr. Garima Pulliam RBC 5.17 106/ul Normal 4.70-6.10 [facility] Comment on above: Performed By: #### C BC ####[facility] Xepgwniaml[address] [place], [place] [address]Dr. Garima Pulliam WBC 6.5 103/ul Normal 4.0-11.0 [facility] Comment on above: Performed By: #### C BC ####[facility] Vcycdxpgvg[address] [place], [place] [address]Dr. Garima Pulliam D-DIMERon 01-13-2023 D-DIMER 0.41 mg/L FEU Normal <=0.[address] [facility] Comment on above: Performed By: #### D DIM ####[facility] Weofwjdyjr9772 [place] [address]Dr. Garima Pulliam D-DIMER COMMENTS SEE BELOW Normal [facility] Comment on above: Result Comment: Incr [...] generalized hospitalization. Performed By: #### D DIM ####[facility] [address]hwbehwa[address] [place], [place] [address]Dr. Garima Pulliam PROF 14(COMP METB)on 023 Albumin [Mass/Vol] 3.4 g/dL Normal 3.4-5.0 [facility] Comment on above: Performed By: #### C MP ####[facility] Llcdtsdega[address] [place], [place] [address]Dr. Garima Pulliam Albumin/Globulin [Mass ratio] 1.3 {ratio} Normal [facility] [facility] Comment on above: Performed By: #### C MP ####[facility] Iokugnsrym[address] [place], [place] [address]Dr. Garima Pulliam ALP [Catalytic activity/Vol] 83 U/L Normal 46-116 [facility] Comment on above: Performed By: #### C MP ####[facility] Pkcfdirour[address] [place], [place] [address]Dr. Garima Pulliam ALT [Catalytic activity/Vol] 25 U/L Normal 16-63 [facility] Comment on above: Performed By: #### C MP ####[facility] Tlapsbhfqk044[address] [place] [address]Dr. Garima Pulliam Anion gap [Moles/Vol] 14.5 mmol/L Normal [facility] Comment on above: Performed By: #### C MP ####[facility] Jvdahugxkh[address] [place], [place] [address]Dr. Garima Pulliam AST [Catalytic activity/Vol] 19 U/L Normal 15-37 [facility] Comment on above: Performed By: #### C MP ####[facility] Dssimaqlsn[address] [place], [place] [address]Dr. Garima Pulliam Bilirubin [Mass/Vol] 0.4 mg/dL Normal 0.2-1.0 [facility] Comment on above: Performed By: #### C MP ####[facility] Wanrqqcuwo7799[address] [place], [place] [address]Dr. Garima Pulliam Calcium [Mass/Vol] 8.7 mg/dL Normal 8.5-10.1 [facility] Comment on above: Performed By: #### C MP ####[facility] Nisuuxxdax[address] [place], [place] [address]Dr. Garima Pulliam Chloride [Moles/Vol] 104 mmol/L Normal 98-107 [facility] Comment on above: Performed By: #### C MP ####[facility] Xxtdfaxaav04[address] [place], [place] [address]Dr. Garima Pulliam CO2 [Moles/Vol] 24.5 mmol/L Normal 21.0-32.0 [facility] Comment on above: Performed By: #### C MP ####[facility] Ruzxxtqeix160[address] [place], [place] [address]Dr. Garima Pulliam Creatinine [Mass/Vol] 0.70 mg/dL Normal 0.70-1.30 [facility] Comment on above: Performed By: #### C MP ####[facility] Nouvbkfrqo348[address] [place], [place] [address]Dr. Garima Heraclio EGFR-AF EMIRATI >60 Normal >=60 [facility] Comment on above: Performed By: #### C MP ####[facility] Dcdeydprrc237[address] [place], [place] [address]Dr. Chapisrenu Heraclio EGFR-NON AF EMIRATI >60 Normal >=60 [facility] Comment on above: Performed By: #### C MP ####[facility] Jqfvuppwex99[address] [place], [place] [address]Dr. Chapisrenu Pulliam Globulin (S) [Mass/Vol] 2.6 g/dL Normal [facility] Comment on above: Performed By: #### C MP ####[facility] Kxfvcqkgzq2867 [place] [address]Dr. Garima Pulliam Glucose [Mass/Vol] 196 mg/dL Critically high 74-106 [facility] Comment on above: Performed By: #### C MP ####[facility] Muspryuwye7792 [place] [address]Dr. Garima Pulliam Potassium [Moles/Vol] 4.0 mmol/L Normal 3.5-5.1 [facility] [place] Comment on above: Performed By: #### C MP ####[facility] Hnhghkbjqe1371 [place] [address]Dr. Garima Pulliam Protein [Mass/Vol] 6.0 g/dL Critically low 6.4-8.2 [facility] Comment on above: Performed By: #### C MP ####[facility] Buvhrygmre[address] [place], [place] [address]Dr. Garima Pulliam Sodium [Moles/Vol] 139 mmol/L Normal 136-145 [facility] Comment on above: Performed By: #### C MP ####[facility] Gahesgmenm3227[address] [place], [place] [address]Dr. Garima Pulliam Urea nitrogen [Mass/Vol] 7.0 mg/dL Normal 7.0-18.0 [facility] Comment on above: Performed By: #### C MP ####[facility] Zhyyymnjsp700[address] [place], [place] [address]Dr. Garima Heraclio Urea nitrogen/Creatinine [Mass ratio] 10.0 mg/mg Normal [facility] Comment on above: Performed By: #### C MP ####[facility] Btpsymibkc[address] [place], [place] [address]Dr. Garima Heraclio BNPon 01-12-2023 Natriuretic peptide B (Bld) [Mass/Vol] 141.0 pg/mL Normal <=900.0 [facility] Comment on above: Performed By: #### C MP, BNP, HSTROPN ####[facility] Yxokmysqzr[address] [place], [place] [address]Dr. Garima Heraclio CBC AUTO DIFFon 01-12-2023 BASO # 0.0 103/ul Normal 0.0-0.1 [facility] Comment on above: Performed By: #### C BC ####[facility] Cptyymqyph7455 [place] [id number]. Garima Heraclio Basophils/100 WBC (Bld) 0.2 % Normal 0.2-2.0 [facility] Comment on above: Performed By: #### C BC ####[facility] Nswkgbezhw9293 [place] [address]Dr. Garima Heraclio EO # 0.2 103/ul Normal 0.0-0.7 [facility] Comment on above: Performed By: #### C BC ####[facility] Zgxgvrnfed2597 [place] [address]Dr. Garima Heraclio Eosinophils/100 WBC (Bld) 2.7 % Normal 0.9-7.0 [facility] Comment on above: Performed By: #### C BC ####[facility] Tzkxhhpwwq[address] [place], [place] [address]Dr. Garima Pulliam Erythrocyte distribution width (RBC) [Ratio] 13.3 % Normal 11.0-15.0 [facility] Comment on above: Performed By: #### C BC ####[facility] Qlgmrnbxbn646[address] [place], [place] [address]Dr. Garima Pulliam Hematocrit (Bld) [Volume fraction] 42.3 % Normal 42.0-54.0 [facility] Comment on above: Performed By: #### C BC ####[facility] Ihzcibkpfl50[address] [place], [place] [address]Dr. Garima Pulliam Hemoglobin (Bld) [Mass/Vol] 14.3 g/dL Normal 14.0-18.0 [facility] Comment on above: Performed By: #### C BC ####[facility] Ohwupoqncs16[address] [place], [place] [address]Dr. Garima Pulliam IG # 0.02 10e3/ul Normal 0.00-0.03 [facility] Comment on above: Performed By: #### C BC ####[facility] Iwkrdzljur6122 [place] [phone]. Garima Pulilam IG % 0.2 % Normal 0.0-0.5 [facility] Comment on above: Performed By: #### C BC ####[facility] Zpkrfgskjc8884 [place] [phone]. Garima Pulliam LYMPH # 2.6 103/ul Normal 1.2-3.8 [facility] Comment on above: Performed By: #### C BC ####[facility] Mkaeczhcck1300 [place] [phone]. Garima Heraclio Lymphocytes/100 WBC (Bld) 29.6 % Normal 20.5-60.0 [facility] Comment on above: Performed By: #### C BC ####[facility] Pmcypntfsb3949 [place] [address]Dr. Garima Heraclio MANUAL DIFF REQ NO Normal [facility] Comment on above: Performed By: #### C BC ####[facility] Icigmvaszy1338 [place] [phone]. Garima Pulliam MCH (RBC) [Entitic mass] 30.2 pg Normal 25.9-34.0 [facility] Comment on above: Performed By: #### C BC ####[facility] Ksutmajrks9754 [place] [address]Dr. Garima Pulliam MCHC (RBC) [Mass/Vol] 33.8 g/dL Normal 29.9-35.2 [facility] Comment on above: Performed By: #### C BC ####[facility] Lcrvdmijox3753 [place] [phone]. Garima Pulliam MCV (RBC) [Entitic vol] 89.2 fL Normal 80.0-94.0 [facility] Comment on above: Performed By: #### C BC ####[facility] Ssgrgiomfp[address] [place], [place] [address]Dr. Chapisrenu Pulliam MONO # 0.7 103/ul Normal 0.3-0.8 [facility] Comment on above: Performed By: #### C BC ####[facility] Hipaxloiqm7451 [place] [phone]. Garima Pulliam Monocytes/100 WBC (Bld) 8.3 % Normal 1.7-12.0 [facility] Comment on above: Performed By: #### C BC ####[facility] Ppkojmcbwv5572 [place] [phone]. Garima Pulliam NEUT # 5.1 103/ul Normal 1.4-6.5 [facility] Comment on above: Performed By: #### C BC ####[facility] Anbfbtvwjc4305 [place] [phone]. Garima Pulliam Neutrophils/100 WBC (Bld) 59.0 % Normal 43.0-75.0 [facility] Comment on above: Performed By: #### C BC ####[facility] Ppjovgwwpw7832 [place] [address]Dr. Garima Pulliam Platelet mean volume (Bld) [Entitic vol] 8.7 fL Critically low 9.5-13.5 [facility] Comment on above: Performed By: #### C BC ####[facility] Loaccvnjkt7819 [place] [address]Dr. Garima Pulliam PLT 182 103/ul Normal 150-450 [facility] Comment on above: Performed By: #### C BC ####[facility] Buxxxwbyvi4618 [place] [phone]. Garima Pulliam RBC 4.74 106/ul Normal 4.70-6.10 [facility] Comment on above: Performed By: #### C BC ####[facility] C[address] [place], [place] [address]Dr. Garima Pulliam WBC 8.7 103/ul Normal 4.0-11.0 [facility] Comment on above: Performed By: #### C BC ####[facility] Vhvqrviafj[address] [place], [place] [address]Dr. Garima Pulliam Covid-19 PCR (CVDTB)on 12-25 SARS-CoV-2 (COVID-19) RNA MARIE+probe Ql (Unsp spec) Not detected Normal NOT DETECTED [facility] Comment on above: Result Comment: [...] for this test is supported by the [employer] and Human Service's declaration that [...] be used). Performed By: #### C VDTBH ####[facility] Vdcvptocnq1454 [place] [address]Dr. Garima Pulliam PROF 14(COMP METB)on 023 Albumin [Mass/Vol] 3.6 g/dL Normal 3.4-5.0 [facility] Comment on above: Performed By: #### C MP, BNP, HSTROPN ####[facility] Ijqlvdjmxh2989 [place] [address]Dr. Garima Pulliam Albumin/Globulin [Mass ratio] 1.5 {ratio} Normal [facility] Comment on above: Performed By: #### C MP, BNP, HSTROPN ####[facility] Koiadlqvyf7063 [place] [address]Dr. Garima Pulliam ALP [Catalytic activity/Vol] 79 U/L Normal 46-116 [facility] Comment on above: Performed By: #### C MP, BNP, HSTROPN ####[facility] Tvchctbrtr3595 [place] [address]Dr. Garima Pulliam ALT [Catalytic activity/Vol] 27 U/L Normal 16-63 [facility] Comment on above: Performed By: #### C MP, BNP, HSTROPN ####[facility] Fzvvbdecih8088 [place] [address]Dr. Garima Pulliam Anion gap [Moles/Vol] 11.7 mmol/L Normal [facility] Comment on above: Performed By: #### C MP, BNP, HSTROPN ####[facility] Xzvkjckepr3048 [place] [address]Dr. Garima Pulliam AST [Catalytic activity/Vol] 21 U/L Normal 15-37 [facility] Comment on above: Performed By: #### C MP, BNP, HSTROPN ####[facility] Cddorxdhir7599 [place] [address]Dr. Garima Pulliam Bilirubin [Mass/Vol] 0.3 mg/dL Normal 0.2-1.0 [facility] Comment on above: Performed By: #### C MP, BNP, HSTROPN ####[facility] Evoveuxzur3870 [place] [address]Dr. Garima Pulliam Calcium [Mass/Vol] 8.9 mg/dL Normal 8.5-10.1 [facility] Comment on above: Performed By: #### C MP, BNP, HSTROPN ####[facility] Rbaslylxot2691 [place] [address]Dr. Garima Pulliam Chloride [Moles/Vol] 107 mmol/L Normal 98-107 [facility] Comment on above: Performed By: #### C MP, BNP, HSTROPN ####[facility] Zhznejyzia0063 [place] [address]Dr. Garima Pulliam CO2 [Moles/Vol] 26.0 mmol/L Normal 21.0-32.0 [facility] Comment on above: Performed By: #### C MP, BNP, HSTROPN ####[facility] Zonjuksypw6741 [place] [address]Dr. Garima Pulliam Creatinine [Mass/Vol] 0.65 mg/dL Critically low 0.70-1.30 [facility] Comment on above: Performed By: #### C MP, BNP, HSTROPN ####[facility] Yltxvthduu1486 [place] [address]Dr. Yilan Pulliam EGFR-AF EMIRATI >60 Normal >=60 [facility] Comment on above: Performed By: #### C MP, BNP, HSTROPN ####[facility] Bxaioefrxp0111 [place] [address]Dr. Garima Pulliam EGFR-NON AF EMIRATI >60 Normal >=60 [facility] Comment on above: Performed By: #### C MP, BNP, HSTROPN ####[facility] Egensaykaj3941 [place] [address]Dr. Garima Pulliam Globulin (S) [Mass/Vol] 2.4 g/dL Normal [facility] Comment on above: Performed By: #### C MP, BNP, HSTROPN ####[facility] Uoolunkqqw[address] [place], [place] [address]Dr. Garima Pulliam Glucose [Mass/Vol] 85 mg/dL Normal 74-106 [facility] Comment on above: Performed By: #### C MP, BNP, HSTROPN ####[facility] Hbwymygbmq3116 [place] [address]Dr. Garima Pulliam Potassium [Moles/Vol] 3.7 mmol/L Normal 3.5-5.1 [facility] Comment on above: Performed By: #### C MP, BNP, HSTROPN ####[facility] Qwqucwfisq0895 [place] [address]Dr. Garima Pulliam Protein [Mass/Vol] 6.0 g/dL Critically low 6.4-8.2 [facility] Comment on above: Performed By: #### C MP, BNP, HSTROPN ####[facility] Rrrlhznzuw8686 [place] [address]Dr. Garima Pulliam Sodium [Moles/Vol] 141 mmol/L Normal 136-145 [facility] Comment on above: Performed By: #### C MP, BNP, HSTROPN ####[facility] Zctaistcyx2819 [place] [address]Dr. Garima Pulliam Urea nitrogen [Mass/Vol] 5.0 mg/dL Critically low 7.0-18.0 [facility] Comment on above: Performed By: #### C MP, BNP, HSTROPN ####[facility] Gpzvmgrlnn2086 [place] [address]Dr. Garima Pulliam Urea nitrogen/Creatinine [Mass ratio] 7.7 mg/mg Normal [facility] Comment on above: Performed By: #### C MP, BNP, HSTROPN ####[facility] Jjmbqekely0427 [place] [address]Dr. Garima Pulliam PROTIMEon 01-12-2023 INR Coag (PPP) [Relative time] 1.16 {INR} Normal [facility] Comment on above: Performed By: #### P TT, PT ####[facility] Mugshnjidx0658 [place] [address]Dr. Garima Pulliam INR GUIDELINES SEE BELOW Normal [facility] Comment on above: Result Comment: WESLEY RED INR: 2.0 - 3.0 CONDITIONS NOT LISTED BELOW 2.5 - 3.5 FOR PROSTHETIC HEART VALVE REPLACEMENT 2.5 - 3.5 RECURRENT THROMBOSIS Performed By: #### P TT, PT ####[facility] Vuitkocrgi[address] [place], [place] [address]Dr. Garima Pulliam PT Coag (PPP) [Time] 12.2 s Critically high 9.0-11.6 [facility] Comment on above: Performed By: #### P TT, PT ####[facility] Bbuplrtxmb7190 [place] [address]Dr. Garima Pulliam PTTon 01-12-2023 aPTT Coag (Bld) [Time] 29.1 s Normal 22.3-36.2 [facility] Comment on above: Performed By: #### P TT, PT ####[facility] Twbndrieka[address] [place], [place] [address]Dr. Garima Pulliam TROPONIN, HIGH SENSITIVITYon 01-12-2023 HSTROP 10.3 pg/mL Normal 4.0-76.1 [facility] Comment on above: Result Comment: CUT- OFF POINTS HAVE BEEN ESTABLISHED BASED ON THE FOURTH UNIVERSAL DEFINITIONS OF MYOCARDIALINFARCTION. THE UPPER REFERENCE LIMIT (URL) OF TROPONIN, DEFINED THE 99TH PERCENTILE OFcTnI DISTRIBUTION IN A REFERENCE POPULATION, HAS BEEN CONFIRMED THE DECISION THRESHOLDFOR DE DIAGNOSIS. Performed By: #### H STROPN ####[facility] Nuquyeiauk25[address] [place] [address]Dr. Garima Pulliam HSTROP 9.2 pg/mL Normal 4.0-76.1 [facility] Comment on above: Result Comment: CUT- OFF POINTS HAVE BEEN ESTABLISHED BASED ON THE FOURTH UNIVERSAL DEFINITIONS OF MYOCARDIALINFARCTION. THE UPPER REFERENCE LIMIT (URL) OF TROPONIN, DEFINED THE 99TH PERCENTILE OFcTnI DISTRIBUTION IN A REFERENCE POPULATION, HAS BEEN CONFIRMED THE DECISION THRESHOLDFOR DE DIAGNOSIS. Performed By: #### C MP, BNP, HSTROPN ####[facility] Lizvopgnfd1006 [place] [address]Dr. Garima Pulliam XR CHEST 1 Von 01-12-2023 XR CHEST 1 V Normal [facility] XR CHEST 1 Von 01-01-2023 XR CHEST 1 V Normal [facility] CARDIAC NASH 3-6on 3 CK [Catalytic activity/Vol] 196 U/L Normal 39-308 [facility] Comment on above: Performed By: #### C MREP ####[facility] Kjrkwunkrd1861 [place] [address]Dr. Garima Pulliam CK.MB [Mass/Vol] 7.41 ng/mL Critically high <=3.60 [facility] Comment on above: Performed By: #### C MREP ####[facility] Elmzsyfffo8313 [place] [address]Dr. Garima Pulliam HSTROP 10.3 pg/mL Normal 4.0-76.1 [facility] Comment on above: Result Comment: CUT- OFF POINTS HAVE BEEN ESTABLISHED BASED ON THE FOURTH UNIVERSAL DEFINITIONS OF MYOCARDIALINFARCTION. THE UPPER REFERENCE LIMIT (URL) OF TROPONIN, DEFINED THE 99TH PERCENTILE OFcTnI DISTRIBUTION IN A REFERENCE POPULATION, HAS BEEN CONFIRMED THE DECISION THRESHOLDFOR DE DIAGNOSIS. Performed By: #### C MREP ####[facility] Qlljhbbpxw9942 [place] [phone]. Garima Pulliam XR CHEST 1 Von 12-26-2022 XR CHEST 1 V Normal [facility] BNPon 12-25-2022 Natriuretic peptide B (Bld) [Mass/Vol] 98.0 pg/mL Normal <=900.0 [facility] Comment on above: Performed By: #### B MARVIN FRENCH CMADM ####[facility] Wiumcotvjf2012 [place] [address]Dr. Garima Pulliam CARDIAC NASH ADMITon 023 CK [Catalytic activity/Vol] 208 U/L Normal 39-308 [facility] Comment on above: Performed By: #### B MARVIN FRENCH CMADM ####[facility] Tckvjkomzy8650 [place] [address]Dr. Garima Pulliam CK.MB [Mass/Vol] 7.63 ng/mL Critically high <=3.60 [facility] Comment on above: Performed By: #### B MARVIN FRENCH CMADM ####[facility] Sevqczsaul22[address] [place], [place] [address]Dr. Garima Pulliam HSTROP 8.8 pg/mL Normal 4.0-76.1 [facility] Comment on above: Result Comment: CUT- OFF POINTS HAVE BEEN ESTABLISHED BASED ON THE FOURTH UNIVERSAL DEFINITIONS OF MYOCARDIALINFARCTION. THE UPPER REFERENCE LIMIT (URL) OF TROPONIN, DEFINED THE 99TH PERCENTILE OFcTnI DISTRIBUTION IN A REFERENCE POPULATION, HAS BEEN CONFIRMED THE DECISION THRESHOLDFOR DE DIAGNOSIS. Performed By: #### B MARVIN FRENCH CMADM ####[facility] Cnfpvlhlcy[address] [place], [place] [address]Dr. Garima Pulliam DORIS 83 ng/mL Normal 16-96 [facility] Comment on above: Performed By: #### B MARVIN FRENCH CMADM ####[facility] Oetqflowdo[address] [place], [place] [address]Dr. Garima Pulliam CBC AUTO DIFFon 12-25-2022 BASO # 0.0 103/ul Normal 0.0-0.1 [facility] Comment on above: Performed By: #### C BC ####[facility] Ncdglbdkow[address] [place], [place] [address]Dr. Garima Pulliam Basophils/100 WBC (Bld) 0.0 % Critically low 0.2-2.0 [facility] Comment on above: Performed By: #### C BC ####[facility] Mwcidbuvdd4648 [place] [address]Dr. Garima Pulliam EO # 0.0 103/ul Normal 0.0-0.7 [facility] Comment on above: Performed By: #### C BC ####[facility] Diohqfctwe36[address] [place], [place] [address]Dr. Garima Pulliam Eosinophils/100 WBC (Bld) 0.7 % Critically low 0.9-7.0 [facility] Comment on above: Performed By: #### C BC ####[facility] Qwybaumdkt257[address] [place], [place] [address]Dr. Garima Pulliam Erythrocyte distribution width (RBC) [Ratio] 13.4 % Normal 11.0-15.0 [facility] Comment on above: Performed By: #### C BC ####[facility] Orvsbxfxwt369[address] [place], [place] [address]Dr. Garima Pulliam Hematocrit (Bld) [Volume fraction] 42.9 % Normal 42.0-54.0 [facility] Comment on above: Performed By: #### C BC ####[facility] Whwexewnnv[address] [place], [place] [address]Dr. Garima Pulliam Hemoglobin (Bld) [Mass/Vol] 14.4 g/dL Normal 14.0-18.0 [facility] Comment on above: Performed By: #### C BC ####[facility] Rsewkfxgtz299[address] [place], [place] [address]Dr. Garima Pulliam IG # 0.00 10e3/ul Normal 0.00-0.03 [facility] Comment on above: Performed By: #### C BC ####[facility] Iwytevruzf097[address] [place], [place] [address]Dr. Garima Pulliam IG % 0.0 % Normal 0.0-0.5 [facility] Comment on above: Performed By: #### C BC ####[facility] Rbijqtdyux[address] [place], [place] [address]Dr. Garima Pulliam LYMPH # 2.4 103/ul Normal 1.2-3.8 [facility] Comment on above: Performed By: #### C BC ####[facility] Soasukliyn8350 [place] [phone]. Chapisrenu Pulliam Lymphocytes/100 WBC (Bld) 29.2 % Normal 20.5-60.0 [facility] Comment on above: Performed By: #### C BC ####[facility] Xhdvbscpzj4518 [place] [phone]. Garima Pulliam MANUAL DIFF REQ NO Normal [facility] Comment on above: Performed By: #### C BC ####[facility] Olvcahivay9070 [place] [phone]. Garima Pulliam MCH (RBC) [Entitic mass] 30.7 pg Normal 25.9-34.0 [facility] Comment on above: Performed By: #### C BC ####[facility] Dnhmyatzor12[address] [place], [place] [address]Dr. Garima Pulliam MCHC (RBC) [Mass/Vol] 33.6 g/dL Normal 29.9-35.2 [facility] Comment on above: Performed By: #### C BC ####[facility] Kvvjkpisnu939[address] [place], [place] [address]Dr. Garima Pulliam MCV (RBC) [Entitic vol] 91.5 fL Normal 80.0-94.0 [facility] Comment on above: Performed By: #### C BC ####[facility] Uaoszdrcug[address] [place], [place] [address]Dr. Garima Pulliam MONO # 0.0 103/ul Critically low 0.3-0.8 [facility] Comment on above: Performed By: #### C BC ####[facility] Usnmouumon2172 [place] [address]Dr. Garima Pulliam Monocytes/100 WBC (Bld) 8.0 % Normal 1.7-12.0 [facility] Comment on above: Performed By: #### C BC ####[facility] Qnpxodvzvv93[address] [place], [place] [address]Dr. Garima Pulliam NEUT # 5.1 103/ul Normal 1.4-6.5 [facility] Comment on above: Performed By: #### C BC ####[facility] Hbgqfkadzv0088 [place], [place] [address]Tc. Garima Pulliam Neutrophils/100 WBC (Bld) 62.8 % Normal 43.0-75.0 [facility] Comment on above: Performed By: #### C BC ####[facility] Tfowmhwntq8298 [place], [place] [address]Kw. Garima Pulliam Platelet mean volume (Bld) [Entitic vol] 8.6 fL Critically low 9.5-13.5 [facility] Comment on above: Performed By: #### C BC ####[facility] Pxscopctby2581 [place] [phone]. Garima Pulliam PLT 200 103/ul Normal 150-450 [facility] Comment on above: Performed By: #### C BC ####[facility] Eqsqovmsyb2799 [place] [phone]. Garima Pulliam RBC 4.69 106/ul Critically low 4.70-6.10 [facility] Comment on above: Performed By: #### C BC ####[facility] Btzlrcpzso5359 [place], [place] [address]Ot. aGrima Pulliam WBC 8.2 103/ul Normal 4.0-11.0 [facility] Comment on above: Performed By: #### C BC ####[facility] Ptlpkhhods7192 [place], [place] [address]Vo. Garima Pulliam [facility]on SARS-CoV-2 (COVID-19) RNA MARIE+probe Ql (Unsp spec) Not detected Normal NOT DETECTED The [facility] Comment on above: Result Comment: [...] for this test is supported by the [employer] of [employer] and Human Service's declaration that [...] be used). Performed By: #### C VDTBH ####[facility] [address] [place], [place] [address]Dr. Garima Pulliam INFLUENZA A AND B AGon 12-25 INFLUANEGH SEE BELOW Normal [facility] Comment on above: Result Comment: Nega tive for Flu A protein angiten. Infection due to Flu A cannot be ruled out. Flu A angiten in the sample may be below the detection limit of the test. Performed By: #### I NFLUAB ####[facility] [address] [place], [place] [address]Dr. Garima Pulliam INFLUBNEGH SEE BELOW Normal [facility] Comment on above: Result Comment: Nega tive for Flu B protein antigen. Infection due to Flu B cannot be ruled out. Flu B antigen in the sample may be below the detection limit of the test. Performed By: #### I NFLUAB ####[facility] M[address]knfs[address] [place], [place] [address]Dr. Garima Pulliam INFLUENZA A AG Negative Normal NEGATIVE SEE COMMENT [facility] Comment on above: Performed By: #### I NFLUAB ####[facility] [address] [place], [place] [address]Dr. renu [facility] INFLUENZA B AG Negative Normal NEGATIVE SEE COMMENT [facility] Comment on above: Performed By: #### I NFLUAB ####[facility] Mtoeac[address] [place], [place] [address]Dr. Garima Pulliam PROF CHEM 8 (BAS METB)on Anion gap [Moles/Vol] 11.1 mmol/L Normal Th [facility] Comment on above: Performed By: #### B PARAMEDICAL AIDE, BMP, CMADM ####[facility] Eervxacosj[address] [place], [place] [address]Dr. Garima Pulliam Calcium [Mass/Vol] 8.5 mg/dL Normal 8.5-10.1 [facility] Comment on above: Performed By: #### B PARAMEDICAL AIDE, MARVIN, CMADM ####[facility] [address] [place] [phone]. Garima Pulliam Chloride [Moles/Vol] 106 mmol/L Normal 98-107 [facility] Comment on above: Performed By: #### B PARAMEDICAL AIDE, BMP, CMADM ####[facility] [address] [place] [address]Dr. Garima Pulliam CO2 [Moles/Vol] 27.4 mmol/L Normal 21.0-32.0 [facility] Comment on above: Performed By: #### B PARAMEDICAL AIDE, MARVIN, CMADM ####[facility] [address] [place] [address]Dr. Garima Pulliam Creatinine [Mass/Vol] 0.65 mg/dL Critically low 0.70-1.30 [facility] Comment on above: Performed By: #### B PARAMEDICAL AIDE, MARVIN, CMADM ####[facility] [address] [place] [address]Dr. Garima Pulliam EGFR-AF EMIRATI >60 Normal >=60 [facility] Comment on above: Performed By: #### B PARAMEDICAL AIDE, BMP, CMADM ####[facility] [address] [place] [address]Dr. Garima Pulliam EGFR-NON AF EMIRATI >60 Normal >=60 [facility] Comment on above: Performed By: #### B PARAMEDICAL AIDE, BMP, CMADM ####[facility] [address]ax[address] [place] [address]Dr. Garima Pulliam Glucose [Mass/Vol] 140 mg/dL Critically high 74-106 [facility] Comment on above: Performed By: #### B PARAMEDICAL AIDE, BMP, CMADM ####[facility] [address] [place] [address]Dr. Garima Pulliam Potassium [Moles/Vol] 3.5 mmol/L Normal 3.5-5.1 [facility] Comment on above: Performed By: #### B PARAMEDICAL AIDE, BMP, CMADM ####[facility] [address] [place] [address]Dr. Garima Pulliam Sodium [Moles/Vol] 141 mmol/L Normal 136-145 [facility] Comment on above: Performed By: #### B PARAMEDICAL AIDE, BMP, CMADM ####[facility] Nvebqknpmd[address] [place] [address]Dr. Garima Pulliam Urea nitrogen [Mass/Vol] 8.0 mg/dL Normal 7.0-18.0 [facility] Comment on above: Performed By: #### B PARAMEDICAL AIDE, BMP, CMADM ####[facility] [address] [place] [address]Dr. Garima Pulliam Urea nitrogen/Creatinine [Mass ratio] 12.3 mg/mg Normal [facility] Comment on above: Performed By: #### B PARAMEDICAL AIDE, BMP, CMADM ####[facility] Subp[address]xwqn[address] [place], [place] [address]Dr. Garima Pulliam CARDIAC NASH ADMITon 023 CK [Catalytic activity/Vol] 165 U/L Normal 39-308 [facility] Comment on above: Performed By: #### B DAVID, CMADM ####[facility] Ggvivioinw[address] [place], [place] [address]Dr. Garima Pulliam CK.MB [Mass/Vol] 6.48 ng/mL Critically high <=3.60 [facility] Comment on above: Performed By: #### B MP, CMADM ####[facility] Ymnvaecdxv[address] [place], [place] [address]Dr. Garima Pulliam HSTROP 11.7 pg/mL Normal 4.0-76.1 [facility] Comment on above: Result Comment: CUT- OFF POINTS HAVE BEEN ESTABLISHED BASED ON THE FOURTH UNIVERSAL DEFINITIONS OF MYOCARDIALINFARCTION. THE UPPER REFERENCE LIMIT (URL) OF TROPONIN, DEFINED THE 99TH PERCENTILE OFcTnI DISTRIBUTION IN A REFERENCE POPULATION, HAS BEEN CONFIRMED THE DECISION THRESHOLDFOR DE DIAGNOSIS. Performed By: #### B MP, CMADM ####[facility] [address] [place], [place] [address]Dr. Garima Pulliam DORIS 83 ng/mL Normal 16-96 [facility] Comment on above: Performed By: #### B MP, CMADM ####[facility] P[address]rx[address]fer[address] [place] [address]Dr. Garima Pulliam CBC AUTO DIFFon 12-10-2022 BASO # 0.0 103/ul Normal 0.0-0.1 [facility] Comment on above: Performed By: #### C BC ####[facility] [address]zmy[address] [place], [place] [address]Dr. Garima Heraclio Basophils/100 WBC (Bld) 0.3 % Normal 0.2-2.0 [facility] Comment on above: Performed By: #### C BC ####[facility] Igtdhshgpi[address] [place], [place] [address]Dr. Garima Pulliam EO # 0.1 103/ul Normal 0.0-0.7 [facility] Comment on above: Performed By: #### C BC ####[facility] Apresnf[address] [place], [place] [address]Dr. Garima Pulliam Eosinophils/100 WBC (Bld) 0.4 % Critically low 0.9-7.0 [facility] Comment on above: Performed By: #### C BC ####[facility] Jmxvomtkrs[address] [place], [place] [address]Dr. Garima Pulliam Erythrocyte distribution width (RBC) [Ratio] 13.2 % Normal 11.0-15.0 [facility] Comment on above: Performed By: #### C BC ####[facility] Dfbppbrzio[address] [place], [place] [address]Dr. Garima Pulliam Hematocrit (Bld) [Volume fraction] 42.4 % Normal 42.0-54.0 [facility] Comment on above: Performed By: #### C BC ####[facility] Lcfqnxtdlc[address] [place], [place] [address]Dr. Garima Pulliam Hemoglobin (Bld) [Mass/Vol] 14.4 g/dL Normal 14.0-18.0 [facility] Comment on above: Performed By: #### C BC ####[facility] [address] [place] [phone]. Garima Heraclio IG # 0.05 10e3/ul Critically high 0.00-0.03 [facility] Comment on above: Performed By: #### C BC ####[facility] [address] [place] [address]Dr. Garima Heraclio IG % 0.4 % Normal 0.0-0.5 [facility] Comment on above: Performed By: #### C BC ####[facility] Cpvapakmkx[address] [place], [place] [address]Dr. Garima Pulliam LYMPH # 0.8 103/ul Critically low 1.2-3.8 [facility] Comment on above: Performed By: #### C BC ####[facility] Rjvhoozffw[address] [place], [place] [address]Dr. Chapisrenu Pulliam Lymphocytes/100 WBC (Bld) 6.5 % Critically low 20.5-60.0 [facility] Comment on above: Performed By: #### C BC ####[facility] T[address]mswcsp[address] [place], [place] [address]Dr. Chapisrenu Pulliam MANUAL DIFF REQ NO Normal [facility] Comment on above: Performed By: #### C BC ####[facility] Putrbpwidk[address] [place], [place] [address]DrAdalberto Garima Pulliam MCH (RBC) [Entitic mass] 30.5 pg Normal 25.9-34.0 [facility] Comment on above: Performed By: #### C BC ####[facility] [address] [place], [place] [address]DrAdalberto Garima Heraclio MCHC (RBC) [Mass/Vol] 34.0 g/dL Normal 29.9-35.2 [facility] Comment on above: Performed By: #### C BC ####[facility] [address] [place], [place] [address]DrAdalberto Garima Heraclio MCV (RBC) [Entitic vol] 89.8 fL Normal 80.0-94.0 [facility] Comment on above: Performed By: #### C BC ####[facility] [address] [place], [place] [address]Dr. Garima Pulliam MONO # 0.2 103/ul Critically low 0.3-0.8 [facility] Comment on above: Performed By: #### C BC ####[facility] [address] [place] [phone]. Garima Pulliam Monocytes/100 WBC (Bld) 2.0 % Normal 1.7-12.0 [facility] Comment on above: Performed By: #### C BC ####[facility] [address]os[address] [place] [address]Dr. Chapisrenu Heraclio NEUT # 10.5 103/ul Critically high 1.4-6.5 [facility] Comment on above: Performed By: #### C BC ####[facility] [address]zs[address] [place] [address]Dr. Garima Pulliam Neutrophils/100 WBC (Bld) 90.4 % Critically high 43.0-75.0 [facility] Comment on above: Performed By: #### C BC ####[facility] E[address]zx[address] [place] [address]Dr. Garima Pulliam Platelet mean volume (Bld) [Entitic vol] 9.4 fL Critically low 9.5-13.5 [facility] Comment on above: Performed By: #### C BC ####[facility] [address] [place] [address]Dr. Garima Pulliam PLT 198 103/ul Normal 150-450 [facility] Comment on above: Performed By: #### C BC ####[facility] [address]wlmux[address] [place] [address]Dr. Garima Pulliam RBC 4.72 106/ul Normal 4.70-6.10 [facility] Comment on above: Performed By: #### C BC ####[facility] [address]po[address] [place] [phone]. Garima Pulliam WBC 11.6 103/ul Critically high 4.0-11.0 [facility] Comment on above: Performed By: #### C BC ####[facility] [address]rfsxziss[address] [place] [address]DrAdalberto Pulliam PROF CHEM 8 (BAS METB)on Anion gap [Moles/Vol] 11.3 mmol/L Normal Th [facility] Comment on above: Performed By: #### B NANCY HERNANDEZ ####[facility] [address] [place] [address]Dr. Garima Pulliam Calcium [Mass/Vol] 8.9 mg/dL Normal 8.5-10.1 [facility] Comment on above: Performed By: #### B NANCY HERNANDEZ ####[facility] [address]was[address] [place] [address]Dr. Garima Pulliam Chloride [Moles/Vol] 103 mmol/L Normal 98-107 [facility] Comment on above: Performed By: #### B NANCY HERNANDEZ ####[facility] Dyulchu[address] [place], [place] [address]Dr. Garima Pulliam CO2 [Moles/Vol] 28.2 mmol/L Normal 21.0-32.0 [facility] Comment on above: Performed By: #### NANCY Larkin MP ####[facility] Xcf[address]ipsrs[address] [place] [address]Dr. Chapisrenu Pulliam Creatinine [Mass/Vol] 0.60 mg/dL Critically low 0.70-1.30 [facility] Comment on above: Performed By: #### NANCY Larkin MP ####[facility] X[address]zzxud[address] [place] [address]Dr. Garima Pulliam EGFR-AF EMIRATI >60 Normal >=60 [facility] Comment on above: Performed By: #### NANCY Larkin MP ####[facility] S[address]cpkqp[address] [place] [address]Dr. Garima Pullima EGFR-NON AF EMIRATI >60 Normal >=60 [facility] Comment on above: Performed By: #### NANCY Larkin MP ####[facility] Z[address]zghuq[address] [place], [place] [address]Dr. Garima Pulliam Glucose [Mass/Vol] 166 mg/dL Critically high 74-106 [facility] Comment on above: Performed By: #### B MP, CMADM ####[facility] Wmpwfilyjj[address] [place] [address]Dr. Garima Pulliam Potassium [Moles/Vol] 3.5 mmol/L Normal 3.5-5.1 [facility] Comment on above: Performed By: #### B MP, CMADM ####[facility] Ayzwxdsepr[address] [place] [address]Dr. Garima Pulliam Sodium [Moles/Vol] 139 mmol/L Normal 136-145 [facility] Comment on above: Performed By: #### B DAVID, CMADM ####[facility] [address]vubpket[address] [place] [address]Dr. Garima Heraclio Urea nitrogen [Mass/Vol] 9.0 mg/dL Normal 7.0-18.0 [facility] Comment on above: Performed By: #### B DAVID, NANCY ####[facility] [address]ysmrzou[address] [place], [place] [address]Dr. Garima Heraclio Urea nitrogen/Creatinine [Mass ratio] 15.0 mg/mg Normal [facility] Comment on above: Performed By: #### B DAVID, CMAANA ROSA ####[facility] Ilztzhwtec[address] [place], [place] [address]Dr. Garima Pulliam XR CHEST 1 Von 12-10-2022 XR CHEST 1 V Normal [facility] BNPon 11-27-2022 Natriuretic peptide B (Bld) [Mass/Vol] 95.0 pg/mL Normal <=900.0 [facility] Comment on above: Performed By: #### C MP, HSTROPN, BNP ####[facility] [address]rry[address] [place], [place] [address]Dr. Garima Heraclio CBC AUTO DIFFon 11-27-2022 BASO # 0.0 103/ul Normal 0.0-0.1 [facility] Comment on above: Performed By: #### C BC ####[facility] Aoaydbuwyp[address] [place], [place] [address]Dr. Garima Heraclio Basophils/100 WBC (Bld) 0.2 % Normal 0.2-2.0 [facility] Comment on above: Performed By: #### C BC ####[facility] Xi[address]twrxsb[address] [place] [phone]. Garima Pulliam EO # 0.2 103/ul Normal 0.0-0.7 [facility] Comment on above: Performed By: #### C BC ####[facility] K[address]zgsxudji26[address] [place] [phone]. Garima Pulliam Eosinophils/100 WBC (Bld) 2.0 % Normal 0.9-7.0 [facility] Comment on above: Performed By: #### C BC ####[facility] Bkndawcghf[address] [place], [place] [address]Dr. Garima uPlliam Erythrocyte distribution width (RBC) [Ratio] 13.2 % Normal 11.0-15.0 [facility] Comment on above: Performed By: #### C BC ####[facility] Kmkinfzcmd[address] [place], [place] [address]Dr. Garima Pulliam Hematocrit (Bld) [Volume fraction] 42.4 % Normal 42.0-54.0 [facility] Comment on above: Performed By: #### C BC ####[facility] Nwbzhclshh[address] [place], [place] [address]Dr. Garima Pulliam Hemoglobin (Bld) [Mass/Vol] 14.4 g/dL Normal 14.0-18.0 [facility] Comment on above: Performed By: #### C BC ####[facility] Dyegkwltup[address] [place], [place] [address]Dr. Garima Pulliam IG # 0.04 10e3/ul Critically high 0.00-0.03 [facility] Comment on above: Performed By: #### C BC ####[facility] Dhjsfaonwg[address] [place], [place] [address]Dr. Garima Pulliam IG % 0.4 % Normal 0.0-0.5 [facility] Comment on above: Performed By: #### C BC ####[facility] J[address]qlnfjtel[address] [place], [place] [address]Dr. Garima Pulliam LYMPH # 2.2 103/ul Normal 1.2-3.8 [facility] Comment on above: Performed By: #### C BC ####[facility] [address]dtmjgbk[address] [place] [phone]. Garima Pulliam Lymphocytes/100 WBC (Bld) 21.5 % Normal 20.5-60.0 [facility] Comment on above: Performed By: #### C BC ####[facility] [address]jtx[address]he[address] [place] [phone]. Garima Heraclio MANUAL DIFF REQ NO Normal [facility] Comment on above: Performed By: #### C BC ####[facility] G[address]yesalur[address] [place] [phone]. Garima Heraclio MCH (RBC) [Entitic mass] 30.4 pg Normal 25.9-34.0 [facility] Comment on above: Performed By: #### C BC ####[facility] Knwpuvqooz[address] [place] [address]Dr. Garima Heraclio MCHC (RBC) [Mass/Vol] 34.0 g/dL Normal 29.9-35.2 [facility] Comment on above: Performed By: #### C BC ####[facility] [address]axjnhw[address] [place] [phone]. Garima Pulliam MCV (RBC) [Entitic vol] 89.6 fL Normal 80.0-94.0 [facility] Comment on above: Performed By: #### C BC ####[facility] Qbfbkmfxef8075 [place] [phone]. Garima Pulliam MONO # 0.8 103/ul Normal 0.3-0.8 [facility] Comment on above: Performed By: #### C BC ####[facility] Ykkepzatmi[address] [place] [phone]. Chapisrenu Pulliam Monocytes/100 WBC (Bld) 7.7 % Normal 1.7-12.0 [facility] Comment on above: Performed By: #### C BC ####[facility] [address]otwe[address] [place], [place] [address]Dr. Garima Pulliam NEUT # 7.0 103/ul Critically high 1.4-6.5 [facility] Comment on above: Performed By: #### C BC ####[facility] Yvdtxtxfqc1825 [place] [phone]. Garima Pulliam Neutrophils/100 WBC (Bld) 68.2 % Normal 43.0-75.0 [facility] Comment on above: Performed By: #### C BC ####[facility] [address]ubllhsz[address] [place] [phone]. Chapisrenu Pulliam Platelet mean volume (Bld) [Entitic vol] 8.9 fL Critically low 9.5-13.5 [facility] Comment on above: Performed By: #### C BC ####[facility] [address]iqcuveex[address] [place] [address]Dr. Garima Pulliam PLT 222 103/ul Normal 150-450 [facility] Comment on above: Performed By: #### C BC ####[facility] Auyvdzxiid[address] [place] [address]Dr. Garima Pulliam RBC 4.73 106/ul Normal 4.70-6.10 [facility] Comment on above: Performed By: #### C BC ####[facility] Zhztsztfin74[address] [place] [address]Dr. Garima Pulliam WBC 10.3 103/ul Normal 4.0-11.0 [facility] Comment on above: Performed By: #### C BC ####[facility] [address]mxkvlueda[address] [place] [address]Dr. Garima Pulliam PROF 14(COMP METB)on 023 Albumin [Mass/Vol] 3.7 g/dL Normal 3.4-5.0 [facility] Comment on above: Performed By: #### C MP, HSTROPN, BNP ####[facility] Fkudxnpwdt360[address] [place] [address]Dr. Chapisrenu Pulliam Albumin/Globulin [Mass ratio] 1.5 {ratio} Normal [facility] Comment on above: Performed By: #### C MP, HSTROPN, BNP ####[facility] Qkgfitxaqx57[address] [place] [address]Dr. Garima Pulliam ALP [Catalytic activity/Vol] 79 U/L Normal 46-116 [facility] Comment on above: Performed By: #### C MP, HSTROPN, BNP ####[facility] Qbnkaliqhf4054 [place] [address]Dr. Garima Pulliam ALT [Catalytic activity/Vol] 32 U/L Normal 16-63 [facility] Comment on above: Performed By: #### C MP, HSTROPN, BNP ####[facility] Z[address]qfszfye3342 [place] [address]Dr. Garima Pulliam Anion gap [Moles/Vol] 9.5 mmol/L Normal [facility] Comment on above: Performed By: #### C MP, HSTROPN, BNP ####[facility] [address]fklmlm[address] [place], [place] [address]Dr. Garima Pulliam AST [Catalytic activity/Vol] 25 U/L Normal 15-37 [facility] Comment on above: Performed By: #### C MP, HSTROPN, BNP ####[facility] Xdsaztiupz[address] [place], [place] [address]Dr. Chapislan Pulliam Bilirubin [Mass/Vol] 0.4 mg/dL Normal 0.2-1.0 [facility] Comment on above: Performed By: #### C MP, HSTROPN, BNP ####[facility] [address]qnsrqw[address] [place], [place] [address]Dr. Garima Pulliam Calcium [Mass/Vol] 8.9 mg/dL Normal 8.5-10.1 [facility] Comment on above: Performed By: #### C MP, HSTROPN, BNP ####[facility] [address]ococbrzbo[address] [place], [place] [address]Dr. Chapislan Pulliam Chloride [Moles/Vol] 103 mmol/L Normal 98-107 [facility] Comment on above: Performed By: #### C MP, HSTROPN, BNP ####[facility] D[address]vfavtat[address] [place], [place] [address]Dr. Yilan Pulliam CO2 [Moles/Vol] 28.6 mmol/L Normal 21.0-32.0 [facility] Comment on above: Performed By: #### C MP, HSTROPN, BNP ####[facility] Xrrbfytkvk5[address] [place] [address]Dr. Garima Pulliam Creatinine [Mass/Vol] 0.72 mg/dL Normal 0.70-1.30 [facility] Comment on above: Performed By: #### C MP, HSTROPN, BNP ####[facility] Avzuyjcqrv[address] [place] [address]Dr. Garima Pulliam EGFR-AF EMIRATI >60 Normal >=60 [facility] Comment on above: Performed By: #### C MP, HSTROPN, BNP ####[facility] K[address]qubdhqu[address] [place] [address]Dr. Garima Pulliam EGFR-NON AF EMIRATI >60 Normal >=60 [facility] Comment on above: Performed By: #### C MP, HSTROPN, BNP ####[facility] Hzdxdlshnb2983 [place] [address]Dr. Garima Pulliam Globulin (S) [Mass/Vol] 2.5 g/dL Normal [facility] Comment on above: Performed By: #### C MP, HSTROPN, BNP ####[facility] Ngsvoavcko[address] [place], [place] [address]Dr. Garima Pulliam Glucose [Mass/Vol] 114 mg/dL Critically high 74-106 [facility] Comment on above: Performed By: #### C MP, HSTROPN, BNP ####[facility] [address]bxltdgopk[address] [place], [place] [address]Dr. Garima Pulliam Potassium [Moles/Vol] 4.1 mmol/L Normal 3.5-5.1 [facility] Comment on above: Performed By: #### C MP, HSTROPN, BNP ####[facility] H[address]ylpensfl[address] [place], [place] [address]Dr. Garima Pulliam Protein [Mass/Vol] 6.2 g/dL Critically low 6.4-8.2 [facility] Comment on above: Performed By: #### C MP, HSTROPN, BNP ####[facility] Krvzsuqtxq[address] [place], [place] [address]Dr. Yilan Pulliam Sodium [Moles/Vol] 137 mmol/L Normal 136-145 [facility] Comment on above: Performed By: #### C MP, HSTROPN, BNP ####[facility] Oxhvltsiuq88[address] [place] [address]Dr. Garima Pulliam Urea nitrogen [Mass/Vol] 13.0 mg/dL Normal 7.0-18.0 [facility] Comment on above: Performed By: #### C MP, HSTROPN, BNP ####[facility] Mlesxmlfmg0[address] [place] [address]Dr. Garima Pulliam Urea nitrogen/Creatinine [Mass ratio] 18.1 mg/mg Normal [facility] Comment on above: Performed By: #### C MP, HSTROPN, BNP ####[facility] [address]ndgcoslm[address] [place], [place] [address]Dr. Garima Pulliam TROPONIN, HIGH SENSITIVITYon 11-27-2022 HSTROP 11.8 pg/mL Normal 4.0-76.1 [facility] Comment on above: Result Comment: CUT- OFF POINTS HAVE BEEN ESTABLISHED BASED ON THE FOURTH UNIVERSAL DEFINITIONS OF MYOCARDIALINFARCTION. THE UPPER REFERENCE LIMIT (URL) OF TROPONIN, DEFINED THE 99TH PERCENTILE OFcTnI DISTRIBUTION IN A REFERENCE POPULATION, HAS BEEN CONFIRMED THE DECISION THRESHOLDFOR DE DIAGNOSIS. Performed By: #### C MP, HSTROPN, BNP ####[facility] [address]xxekedaoz[address] [place], [place] [address]Dr. Garima Pulliam XR CHEST 1 Von 11-27-2022 XR CHEST 1 V Normal [facility] BNPon 11-20-2022 Natriuretic peptide B (Bld) [Mass/Vol] 73.0 pg/mL Normal <=900.0 [facility] Comment on above: Performed By: #### B MP, HSTROPN, BNP ####[facility] [address]qazintcp[address] [place], [place] [address]Dr. Garima Pulliam CBC AUTO DIFFon 11-20-2022 BASO # 0.0 103/ul Normal 0.0-0.1 [facility] [place] Comment on above: Performed By: #### C BC ####[facility] Bzkb[address]fhxxc[address] [place] [phone]. Garima Pulliam Basophils/100 WBC (Bld) 0.3 % Normal 0.2-2.0 [facility] Comment on above: Performed By: #### C BC ####[facility] Qzcfuxcaiv7163 [place] [phone]. Garima Pulliam EO # 0.2 103/ul Normal 0.0-0.7 [facility] Comment on above: Performed By: #### C BC ####[facility] V[address]csbwyad[address] [place] [address]Dr. Garima Pulliam Eosinophils/100 WBC (Bld) 2.1 % Normal 0.9-7.0 [facility] Comment on above: Performed By: #### C BC ####[facility] Syfpojvuzf[address] [place], [place] [address]Dr. Garima Pulliam Erythrocyte distribution width (RBC) [Ratio] 13.2 % Normal 11.0-15.0 [facility] Comment on above: Performed By: #### C BC ####[facility] [address]pimwggoib[address] [place], [place] [address]Dr. Garima Pulliam Hematocrit (Bld) [Volume fraction] 43.4 % Normal 42.0-54.0 [facility] Comment on above: Performed By: #### C BC ####[facility] U[address]az[address] [place], [place] [address]Dr. Garima Pulliam Hemoglobin (Bld) [Mass/Vol] 14.6 g/dL Normal 14.0-18.0 [facility] Comment on above: Performed By: #### C BC ####[facility] Ndpirnkqkd4[address] [place] [phone]. Garima Pulliam IG # 0.02 10e3/ul Normal 0.00-0.03 [facility] Comment on above: Performed By: #### C BC ####[facility] [address]qwmfaytl[address] [place] [address]Dr. Garima Pulliam IG % 0.2 % Normal 0.0-0.5 [facility] Comment on above: Performed By: #### C BC ####[facility] Jdsqrlhrnh7710 [place] [id number]. Garima Heraclio LYMPH # 2.1 103/ul Normal 1.2-3.8 [facility] Comment on above: Performed By: #### C BC ####[facility] Owdythgslk3994 [place] [phone]. Garima Heraclio Lymphocytes/100 WBC (Bld) 19.2 % Critically low 20.5-60.0 [facility] Comment on above: Performed By: #### C BC ####[facility] Vzgebwgsfi9[address] [place] [id number]. Chapisrenu Pulliam MANUAL DIFF REQ NO Normal [facility] Comment on above: Performed By: #### C BC ####[facility] Tgzumjjgjq5529 [place] [phone]. Garima Heraclio MCH (RBC) [Entitic mass] 30.4 pg Normal 25.9-34.0 [facility] Comment on above: Performed By: #### C BC ####[facility] Bvqyqgsgif09[address] [place] [address]Dr. Garima Pulliam MCHC (RBC) [Mass/Vol] 33.6 g/dL Normal 29.9-35.2 [facility] Comment on above: Performed By: #### C BC ####[facility] Jncjaodtws9837 [place] [phone]. Garima Heraclio MCV (RBC) [Entitic vol] 90.4 fL Normal 80.0-94.0 [facility] Comment on above: Performed By: #### C BC ####[facility] Fssfvjikrv9248 [place] [phone]. Garima Heraclio MONO # 0.6 103/ul Normal 0.3-0.8 [facility] Comment on above: Performed By: #### C BC ####[facility] Naww[address]cooe[address] [place] [address]Dr. Garima Heraclio Monocytes/100 WBC (Bld) 5.8 % Normal 1.7-12.0 [facility] Comment on above: Performed By: #### C BC ####[facility] Krjaq[address]rmzs8543 [place], [place] [address]Ao. Garima Pulliam NEUT # 7.8 103/ul Critically high 1.4-6.5 [facility] Comment on above: Performed By: #### C BC ####[facility] Bawcl[address]mljo[address] [place] [phone]. Garima Pulliam Neutrophils/100 WBC (Bld) 72.4 % Normal 43.0-75.0 [facility] Comment on above: Performed By: #### C BC ####[facility] Ljcvicyplw2346 [place] [phone]. Garima Pulliam Platelet mean volume (Bld) [Entitic vol] 8.7 fL Critically low 9.5-13.5 [facility] Comment on above: Performed By: #### C BC ####[facility] Lnnkineeps2342 [place] [phone]. Garima Pulliam PLT 184 103/ul Normal 150-450 [facility] Comment on above: Performed By: #### C BC ####[facility] Yvgmiobbsw7230 [place], [place] [address]Cc. Garima Pulliam RBC 4.80 106/ul Normal 4.70-6.10 [facility] Comment on above: Performed By: #### C BC ####[facility] Ginkylxmmd6154 [place] [phone]. Garima Pulliam WBC 10.8 103/ul Normal 4.0-11.0 [facility] Comment on above: Performed By: #### C BC ####[facility] Hidxeaqtoc7[address] [place] [phone]. Garima Pulliam [facility]on 10-24 SARS-CoV-2 (COVID-19) RNA MARIE+probe Ql (Unsp spec) Not detected Normal NOT DETECTED [facility] Comment on above: Result Comment: [...] for this test is supported by the [place] of Health and Human Service's declaration that [...] be used). Performed By: #### C VDTBH ####[facility] Ojpvhnuyyi[address] [place], [place] [address]Dr. Garima Pulliam INFLUENZA A AND B AGon 11-[facility] SEE BELOW Normal [facility] [place] Comment on above: Result Comment: Nega tive for Flu A protein angiten. Infection due to Flu A cannot be ruled out. Flu A angiten in the sample may be below the detection limit of the test. Performed By: #### I NFLUAB ####[facility] Acpxdhykvw[address] [place], [place] [address]Dr. Garima Pullaim INFLUBNEGH SEE BELOW Normal [facility] Comment on above: Result Comment: Nega tive for Flu B protein antigen. Infection due to Flu B cannot be ruled out. Flu B antigen in the sample may be below the detection limit of the test. Performed By: #### I NFLUAB ####[facility] Zwbgtrlvfd[address] [place], [place] [address]Dr. Garima Pulliam INFLUENZA A AG Negative Normal NEGATIVE SEE COMMENT [facility] Comment on above: Performed By: #### I NFLUAB ####[facility] Espdkytjsk[address] [place], [place] [address]Dr. Garima [facility] INFLUENZA B AG Negative Normal NEGATIVE SEE COMMENT [facility] Comment on above: Performed By: #### I NFLUAB ####[facility] Tzntksemuj[address] [place], [place] [address]Dr. Garima Pulliam PROF CHEM 8 (BAS METB)on Anion gap [Moles/Vol] 8.2 mmol/L Normal [facility] Comment on above: Performed By: #### B MP, HSTROPN, BNP ####[facility] Iafksejqjr7[address] [place] [address]Dr. Garima Pulliam Calcium [Mass/Vol] 8.7 mg/dL Normal 8.5-10.1 [facility] Comment on above: Performed By: #### B MP, HSTROPN, BNP ####[facility] Xjflrazvao1268 [place] [address]Dr. Garima Pulliam Chloride [Moles/Vol] 103 mmol/L Normal 98-107 [facility] [place] Comment on above: Performed By: #### B MP, HSTROPN, BNP ####[facility] Yguwuy[address]cte[address] [place], [place] [address]Dr. Garima Pulliam CO2 [Moles/Vol] 29.4 mmol/L Normal 21.0-32.0 [facility] Comment on above: Performed By: #### B MP, HSTROPN, BNP ####[facility] Wsiejpuvov[address] [place], [place] [address]Dr. Garima Pulliam Creatinine [Mass/Vol] 0.69 mg/dL Critically low 0.70-1.30 [facility] [place] Comment on above: Performed By: #### B MP, HSTROPN, BNP ####[facility] Kcpfolzhds[address] [place] [address]Dr. Garima Pulliam EGFR-AF EMIRATI >60 Normal >=60 [facility] Comment on above: Performed By: #### B MP, HSTROPN, BNP ####[facility] [address]jsdn[address] [place], [place] [address]Dr. Garima Pulliam EGFR-NON AF EMIRATI >60 Normal >=60 [facility] Comment on above: Performed By: #### B MP, HSTROPN, BNP ####[facility] Ymkeyxcbwh94[address] [place] [address]Dr. Garima Pulliam Glucose [Mass/Vol] 209 mg/dL Critically high 74-106 [facility] Comment on above: Performed By: #### B MP, HSTROPN, BNP ####[facility] Wsgesxaqea0[address] [place] [address]Dr. Garima Pulliam Potassium [Moles/Vol] 3.6 mmol/L Normal 3.5-5.1 [facility] [place] Comment on above: Performed By: #### B MP, HSTROPN, BNP ####[facility] Ommomytdqf232[address] [place] [address]Dr. Garima Pulliam Sodium [Moles/Vol] 137 mmol/L Normal 136-145 [facility] Comment on above: Performed By: #### B MP, HSTROPN, BNP ####[facility] Tzperiopxd0879 [place] [address]Dr. Garima Pulliam Urea nitrogen [Mass/Vol] 11.0 mg/dL Normal 7.0-18.0 [facility] Comment on above: Performed By: #### B MP, HSTROPN, BNP ####[facility] Ldsrimfrzm[address] [place] [address]Dr. Garima Pulliam Urea nitrogen/Creatinine [Mass ratio] 15.9 mg/mg Normal [facility] Comment on above: Performed By: #### B MP, HSTROPN, BNP ####[facility] Sm[address]wt[address] [place] [address]Dr. Garima Pulliam TROPONIN, HIGH SENSITIVITYon 11-20-2022 HSTROP 8.7 pg/mL Normal 4.0-76.1 [facility] [place] Comment on above: Result Comment: CUT- OFF POINTS HAVE BEEN ESTABLISHED BASED ON THE FOURTH UNIVERSAL DEFINITIONS OF MYOCARDIALINFARCTION. THE UPPER REFERENCE LIMIT (URL) OF TROPONIN, DEFINED THE 99TH PERCENTILE OFcTnI DISTRIBUTION IN A REFERENCE POPULATION, HAS BEEN CONFIRMED THE DECISION THRESHOLDFOR DE DIAGNOSIS. Performed By: #### B MP, HSTROPN, BNP ####[facility] Djdadwvbvk[address] [place] [address]Dr. Garima Pulliam XR CHEST 1 Von 11-20-2022 XR CHEST 1 V Normal [facility] XR CHEST 1 Von 10-02-2022 XR CHEST 1 V Normal [facility] BNPon 09-29-2022 Natriuretic peptide B (Bld) [Mass/Vol] 107.0 pg/mL Normal <=900.0 [facility] Comment on above: Performed By: #### C MP, BNP, CMADM ####[facility] [address]pisfp[address] [place] [address]Dr. Garima Pulliam CARDIAC NASH ADMITon 022 CK [Catalytic activity/Vol] 190 U/L Normal 39-308 [facility] Comment on above: Performed By: #### C MP, BNP, CMADM ####[facility] Navtzbneof032[address] [place] [address]Dr. Garima Heraclio CK.MB [Mass/Vol] 11.11 ng/mL Critically high <=3.60 Th [facility] Comment on above: Performed By: #### C MP, BNP, CMADM ####[facility] Hkvolfsnxc5833 [place] [address]Dr. Garima Pulliam HSTROP 11.8 pg/mL Normal 4.0-76.1 [facility] Comment on above: Result Comment: CUT- OFF POINTS HAVE BEEN ESTABLISHED BASED ON THE FOURTH UNIVERSAL DEFINITIONS OF MYOCARDIALINFARCTION. THE UPPER REFERENCE LIMIT (URL) OF TROPONIN, DEFINED THE 99TH PERCENTILE OFcTnI DISTRIBUTION IN A REFERENCE POPULATION, HAS BEEN CONFIRMED THE DECISION THRESHOLDFOR DE DIAGNOSIS. Performed By: #### C MP, BNP, CMADM ####[facility] Zevtranngx12[address] [place] [address]Dr. Garima Pulliam DORIS 133 ng/mL Critically high 16-96 [facility] Comment on above: Performed By: #### C MP, BNP, CMADM ####[facility] Wnpxsrgnau0466 [place] [address]Dr. Garima Heraclio CBC AUTO DIFFon 09-29-2022 BASO # 0.0 103/ul Normal 0.0-0.1 [facility] Comment on above: Performed By: #### C BC ####[facility] Kxynrlgudo37[address] [place] [address]Dr. Garima Heraclio Basophils/100 WBC (Bld) 0.2 % Normal 0.2-2.0 [facility] Comment on above: Performed By: #### C BC ####[facility] Imvuzeexvu1060 [place] [phone]. Garima Pulliam EO # 0.1 103/ul Normal 0.0-0.7 [facility] Comment on above: Performed By: #### C BC ####[facility] Pvzsyiiaib3102 [place] [phone]. Garima Pulliam Eosinophils/100 WBC (Bld) 1.4 % Normal 0.9-7.0 [facility] Comment on above: Performed By: #### C BC ####[facility] Uulxlcnbos[address] [place], [place] [address]Dr. Garima Pulliam Erythrocyte distribution width (RBC) [Ratio] 13.7 % Normal 11.0-15.0 [facility] [place] Comment on above: Performed By: #### C BC ####[facility] Bvwdcclwnx[address] [place], [place] [address]Dr. Garima Pulliam Hematocrit (Bld) [Volume fraction] 45.4 % Normal 42.0-54.0 [facility] Comment on above: Performed By: #### C BC ####[facility] [address]fdmajfxzv[address] [place], [place] [address]Dr. Garima Pulliam Hemoglobin (Bld) [Mass/Vol] 14.8 g/dL Normal 14.0-18.0 [facility] Comment on above: Performed By: #### C BC ####[facility] Zorbfrnmqf[address] [place], [place] [address]Dr. Garima Pulliam IG # 0.04 10e3/ul Critically high 0.00-0.03 [facility] Comment on above: Performed By: #### C BC ####[facility] H[address]ckbuhfy[address] [place], [place] [address]Dr. Garima Pulliam IG % 0.5 % Normal 0.0-0.5 [facility] Comment on above: Performed By: #### C BC ####[facility] Sufmbxkgtx[address] [place], [place] [address]Dr. Garima Pulliam LYMPH # 1.1 103/ul Critically low 1.2-3.8 [facility] Comment on above: Performed By: #### C BC ####[facility] Knbotjuene6713 [place] [phone]. Garima Pulliam Lymphocytes/100 WBC (Bld) 12.7 % Critically low 20.5-60.0 [facility] [place] Comment on above: Performed By: #### C BC ####[facility] Nsxbrbcexf6200 [place] [phone]. Chapisrenu Pulliam MANUAL DIFF REQ NO Normal [facility] Comment on above: Performed By: #### C BC ####[facility] [address]qs[address] [place], [place] [address]Dr. Garima Heraclio MCH (RBC) [Entitic mass] 30.0 pg Normal 25.9-34.0 [facility] Comment on above: Performed By: #### C BC ####[facility] [address]fkzpvwnbn36[address] [place], [place] [address]Dr. Garima Heraclio MCHC (RBC) [Mass/Vol] 32.6 g/dL Normal 29.9-35.2 [facility] Comment on above: Performed By: #### C BC ####[facility] Smoejplnko[address] [place], [place] [address]Dr. Garima Heraclio MCV (RBC) [Entitic vol] 91.9 fL Normal 80.0-94.0 [facility] Comment on above: Performed By: #### C BC ####[facility] Vieodlfmbi[address] [place], [place] [address]Dr. Garima Pulliam MONO # 0.4 103/ul Normal 0.3-0.8 [facility] Comment on above: Performed By: #### C BC ####[facility] Hzzdgwmdwm[address] [place], [place] [address]Dr. Chapisrenu Pulliam Monocytes/100 WBC (Bld) 4.8 % Normal 1.7-12.0 [facility] Comment on above: Performed By: #### C BC ####[facility] [address]sw[address]httuvj[address] [place], [place] [address]Dr. Garima Pulliam NEUT # 7.1 103/ul Critically high 1.4-6.5 [facility] Comment on above: Performed By: #### C BC ####[facility] Jigwyikuhp6231 [place], [place] [address]Xm. Garima Pulliam Neutrophils/100 WBC (Bld) 80.4 % Critically high 43.0-75.0 [facility] [place] Comment on above: Performed By: #### C BC ####[facility] Rfxgzfgfbi6979 [place] [phone]. Garima Pulliam Platelet mean volume (Bld) [Entitic vol] 9.1 fL Critically low 9.5-13.5 [facility] [place] Comment on above: Performed By: #### C BC ####[facility] Adistumhhb9402 [place] [phone]. Garima Pulliam PLT 200 103/ul Normal 150-450 [facility] Comment on above: Performed By: #### C BC ####[facility] Qilxafdgqw1481 [place] [phone]. Garima Pulliam RBC 4.94 106/ul Normal 4.70-6.10 [facility] Comment on above: Performed By: #### C BC ####[facility] Dbvopjhini5990 [place] [phone]. Garima Pulliam WBC 8.9 103/ul Normal 4.0-11.0 [facility] Comment on above: Performed By: #### C BC ####[facility] Yspcblhecu9695 [place] [phone]. Garima Pulliam Covid-19 PCR (CVDTB)on SARS-CoV-2 (COVID-19) RNA MARIE+probe Ql (Unsp spec) Not detected Normal NOT DETECTED [facility] Comment on above: Result Comment: [...] for this test is supported by the Eros of Health and Human Service's declaration that [...] be used). Performed By: #### C VDTBH ####[facility] Ippirjtjjs90[address] [place] [address]Dr. Garima Pulliam LACTATE/LACTIC ACIDon 2021 Lactate [Moles/Vol] 1.7 mmol/L Normal 0.4-1.9 [facility] Comment on above: Performed By: #### L ACT ####[facility] Cxmienabui[address] [place], [place] [address]Dr. Garima Pulliam PROF 14(COMP METB)on 022 Albumin [Mass/Vol] 3.8 g/dL Normal 3.4-5.0 [facility] Comment on above: Performed By: #### C MP, BNP, CMADM ####[facility] Mramjldqwc48[address] [place], [place] [address]Dr. Garima Pulliam Albumin/Globulin [Mass ratio] 1.5 {ratio} Normal [facility] [place] Comment on above: Performed By: #### C MP, BNP, CMADM ####[facility] Rcwhmzctwr50[address] [place] [address]Dr. Garima Pulliam ALP [Catalytic activity/Vol] 62 U/L Normal 46-116 [facility] [place] Comment on above: Performed By: #### C MP, BNP, CMADM ####[facility] Wftfkacvra0215 [place] [address]Dr. Garima Pulliam ALT [Catalytic activity/Vol] 37 U/L Normal 16-63 [facility] [place] Comment on above: Performed By: #### C MP, BNP, CMADM ####[facility] Gbsgkktmyd1004 [place] [address]Dr. Garima Pulliam Anion gap [Moles/Vol] 8.0 mmol/L Normal [facility] [place] Comment on above: Performed By: #### C MP, BNP, CMADM ####[facility] Aqobwnjdau6592 [place] [address]Dr. Garima Pulliam AST [Catalytic activity/Vol] 20 U/L Normal 15-37 [facility] [place] Comment on above: Performed By: #### C MP, BNP, CMADM ####[facility] Dehbrcyale1803 [place] [address]Dr. Garima Pulliam Bilirubin [Mass/Vol] 0.6 mg/dL Normal 0.2-1.0 [facility] Comment on above: Performed By: #### C MP, BNP, CMADM ####[facility] Krbpzynvhm1570 [place] [address]Dr. Garima Pulliam Calcium [Mass/Vol] 9.1 mg/dL Normal 8.5-10.1 [facility] Comment on above: Performed By: #### C MP, BNP, CMADM ####[facility] R[address]qltfdgmt[address] [place], [place] [address]Dr. Garima Pulliam Chloride [Moles/Vol] 103 mmol/L Normal 98-107 [facility] Comment on above: Performed By: #### C MP, BNP, CMADM ####[facility] Fvqkuvxjsa[address] [place], [place] [address]Dr. Garima Pulliam CO2 [Moles/Vol] 31.8 mmol/L Normal 21.0-32.0 [facility] Comment on above: Performed By: #### C MP, BNP, CMADM ####[facility] [address]uldjlblm[address] [place], [place] [address]Dr. Garima Pulliam Creatinine [Mass/Vol] 0.63 mg/dL Critically low 0.70-1.30 [facility] Comment on above: Performed By: #### C MP, BNP, CMADM ####[facility] Enayabqwxl045[address] [place], [place] [address]Dr. Garima Pulliam EGFR-AF EMIRATI >60 Normal >=60 [facility] Comment on above: Performed By: #### C MP, BNP, CMADM ####[facility] Wdhijelqin[address] [place], [place] [address]Dr. Garima Pulliam EGFR-NON AF EMIRATI >60 Normal >=60 [facility] Comment on above: Performed By: #### C MP, BNP, CMADM ####[facility] Lbppujumju7940 [place] [address]Dr. Garima Pulliam Globulin (S) [Mass/Vol] 2.6 g/dL Normal [facility] [place] Comment on above: Performed By: #### C MP, BNP, CMADM ####[facility] Iglxbhyxqs7279 [place] [address]Dr. Garima Pulliam Glucose [Mass/Vol] 103 mg/dL Normal 74-106 [facility] Comment on above: Performed By: #### C MP, BNP, CMADM ####[facility] Hvuaiyibsw3766 [place] [address]Dr. Garima Pulliam Potassium [Moles/Vol] 3.8 mmol/L Normal 3.5-5.1 [facility] Comment on above: Performed By: #### C MP, BNP, CMADM ####[facility] Rpipcvyieu4403 [place] [address]Dr. Garima Pulliam Protein [Mass/Vol] 6.4 g/dL Normal 6.4-8.2 [facility] Comment on above: Performed By: #### C MP, BNP, CMADM ####[facility] Bdjhzkpmmv6999 [place] [address]Dr. Garima Pulliam Sodium [Moles/Vol] 139 mmol/L Normal 136-145 [facility] Comment on above: Performed By: #### C MP, BNP, CMADM ####[facility] Hloakrnupc5611 [place] [address]Dr. Garima Pulliam Urea nitrogen [Mass/Vol] 7.0 mg/dL Normal 7.0-18.0 [facility] Comment on above: Performed By: #### C MP, BNP, CMADM ####[facility] Nmexiqhjqg0523 [place] [address]Dr. Garima Pulliam Urea nitrogen/Creatinine [Mass ratio] 11.1 mg/mg Normal [facility] [place] Comment on above: Performed By: #### C MP, BNP, CMADM ####[facility] Mphogeyqcg5771 [place] [address]Dr. Garima Pulliam PROTIMEon 09-29-2022 INR Coag (PPP) [Relative time] 1.14 {INR} Normal [facility] Comment on above: Performed By: #### P T, PTT ####[facility] Zjukbyhrke[address] [place], [place] [address]Dr. Garima Pulliam INR GUIDELINES SEE BELOW Normal [facility] Comment on above: Result Comment: WESLEY RED INR: 2.0 - 3.0 CONDITIONS NOT LISTED BELOW 2.5 - 3.5 FOR PROSTHETIC HEART VALVE REPLACEMENT 2.5 - 3.5 RECURRENT THROMBOSIS Performed By: #### P T, PTT ####[facility] Ifxxgkvimk90[address] [place], [place] [address]Dr. Garima Pulliam PT Coag (PPP) [Time] 12.2 s Critically high 9.0-11.6 [facility] Comment on above: Performed By: #### P T, PTT ####[facility] Zzknmitgcv[address] [place], [place] [address]Dr. Garima Pulliam PTTon 09-29-2022 aPTT Coag (Bld) [Time] 29.3 s Normal 22.3-36.2 [facility] Comment on above: Performed By: #### P T, PTT ####[facility] Pixkdvlvxj416[address] [place], [place] [address]Dr. Garima Pulliam XR CHEST 1 Von 09-29-2022 XR CHEST 1 V Normal [facility] CBC AUTO DIFFon 09-26-2022 BASO # 0.0 103/ul Normal 0.0-0.1 [facility] Comment on above: Performed By: #### C BC ####[facility] Pseeeekuof[address] [place], [place] [address]Dr. Garima Pulliam Basophils/100 WBC (Bld) 0.2 % Normal 0.2-2.0 [facility] Comment on above: Performed By: #### C BC ####[facility] Onxhkcndri[address] [place], [place] [address]Dr. Garima Pulliam EO # 0.1 103/ul Normal 0.0-0.7 [facility] [place] Comment on above: Performed By: #### C BC ####[facility] Hgivbnfowg[address] [place], [place] [address]Dr. Garima Pulliam Eosinophils/100 WBC (Bld) 1.0 % Normal 0.9-7.0 [facility] [place] Comment on above: Performed By: #### C BC ####[facility] Wdtfekcvfp143[address] [place], [place] [address]Dr. Garima Pulliam Erythrocyte distribution width (RBC) [Ratio] 13.4 % Normal 11.0-15.0 [facility] [place] Comment on above: Performed By: #### C BC ####[facility] Srcdfofcya[address] [place], [place] [address]Dr. Garima Pulliam Hematocrit (Bld) [Volume fraction] 46.3 % Normal 42.0-54.0 [facility] [place] Comment on above: Performed By: #### C BC ####[facility] [address]beqnwabzs[address] [place] [place], [place] [address]Dr. Garima Pulliam Hemoglobin (Bld) [Mass/Vol] 15.3 g/dL Normal 14.0-18.0 [facility] Comment on above: Performed By: #### C BC ####[facility] [address]muwurc[address] [place], [place] [address]Dr. Garima Pulliam IG # 0.05 10e3/ul Critically high 0.00-0.03 [facility] Comment on above: Performed By: #### C BC ####[facility] Ztutybgolx[address] [place], [place] [address]Dr. Garima Pulliam IG % 0.4 % Normal 0.0-0.5 [facility] Comment on above: Performed By: #### C BC ####[facility] Bovrigjvqv[address] [place], [place] [address]Dr. Garima Pulliam LYMPH # 1.7 103/ul Normal 1.2-3.8 [facility] Comment on above: Performed By: #### C BC ####[facility] Zbqxjameie[address] [place], [place] [address]Dr. Garima Pulliam Lymphocytes/100 WBC (Bld) 12.7 % Critically low 20.5-60.0 [facility] Comment on above: Performed By: #### C BC ####[facility] Zybhmzniif[address] [place] [address]DrAdalberto Pulliam MANUAL DIFF REQ NO Normal [facility] Comment on above: Performed By: #### C BC ####[facility] Dipzlugoto38[address] [place] [address]Dr. Garima Pulliam MCH (RBC) [Entitic mass] 30.1 pg Normal 25.9-34.0 [facility] Comment on above: Performed By: #### C BC ####[facility] Xemdasdjxi75[address] [place], [place] [address]Dr. Garima Pulliam MCHC (RBC) [Mass/Vol] 33.0 g/dL Normal 29.9-35.2 [facility] Comment on above: Performed By: #### C BC ####[facility] Swplsodmji[address] [place], [place] [address]DrAdalberto Pulliam MCV (RBC) [Entitic vol] 91.1 fL Normal 80.0-94.0 [facility] Comment on above: Performed By: #### C BC ####[facility] Xtbxphqhsa[address] [place], [place] [address]DrAdalberto Pulliam MONO # 0.9 103/ul Critically high 0.3-0.8 [facility] Comment on above: Performed By: #### C BC ####[facility] Gnnadobntp[address] [place], [place] [address]DrAdalberto Pulliam Monocytes/100 WBC (Bld) 7.0 % Normal 1.7-12.0 [facility] Comment on above: Performed By: #### C BC ####[facility] Sbdldvmove57[address] [place], [place] [address]DrAdalberto Pulliam NEUT # 10.4 103/ul Critically high 1.4-6.5 [facility] Comment on above: Performed By: #### C BC ####[facility] Rzebkxppvs[address] [place], [place] [address]DrAdalberto Pulliam Neutrophils/100 WBC (Bld) 78.7 % Critically high 43.0-75.0 [facility] Comment on above: Performed By: #### C BC ####[facility] Bvcuwytdez[address] [place] [address]Dr. Garima Pulliam Platelet mean volume (Bld) [Entitic vol] 8.9 fL Critically low 9.5-13.5 [facility] Comment on above: Performed By: #### C BC ####[facility] Fwhvfloahf[address] [place] [address]Dr. Garima Pulliam PLT 195 103/ul Normal 150-450 [facility] Comment on above: Performed By: #### C BC ####[facility] Mkweyfnyfj[address] [place], [place] [address]Dr. Garmia Pulliam RBC 5.08 106/ul Normal 4.70-6.10 [facility] Comment on above: Performed By: #### C BC ####[facility] Ktjfxwynjg[address] [place], [place] [address]Dr. Garima Pulliam WBC 13.2 103/ul Critically high 4.0-11.0 [facility] Comment on above: Performed By: #### C BC ####[facility] Wtgvxvaemw[address] [place], [place] [address]Dr. Garima Pulliam PROF 14(COMP METB)on 022 Albumin [Mass/Vol] 3.5 g/dL Normal 3.4-5.0 [facility] Comment on above: Performed By: #### C DAVID HSTROPN ####[facility] [address]uzqnedwr[address] [place] [address]Dr. Garima Pulliam Albumin/Globulin [Mass ratio] 1.2 {ratio} Normal [facility] Comment on above: Performed By: #### C RAFAT HERNANDEZTROPN ####[facility] [address]fbrbcbub[address] [place] [address]Dr. Garima Pulliam ALP [Catalytic activity/Vol] 71 U/L Normal 46-116 [facility] Comment on above: Performed By: #### C DVAID HSTROPN ####[facility] Yuhpicytwc[address] [place] [address]Dr. Garima Pulliam ALT [Catalytic activity/Vol] 37 U/L Normal 16-63 [facility] Comment on above: Performed By: #### C DAVID, HSTROPN ####[facility] Lkfgxzneir2678 [place] [address]Dr. Garima Pulliam Anion gap [Moles/Vol] 4.8 mmol/L Normal [facility] Comment on above: Performed By: #### C DAVID, HSTROPN ####[facility] Btrzommwqf[address] [place], [place] [address]Dr. Garima Pulliam AST [Catalytic activity/Vol] 21 U/L Normal 15-37 [facility] Comment on above: Performed By: #### C DAVID, HSTROPN ####[facility] Dzrwcfcgsy[address] [place], [place] [address]Dr. Garima Pulliam Bilirubin [Mass/Vol] 0.3 mg/dL Normal 0.2-1.0 [facility] Comment on above: Performed By: #### C DAVID, HSTROPN ####[facility] Zunnbnevyo19[address] [place] [address]Dr. Garima Pulliam Calcium [Mass/Vol] 8.9 mg/dL Normal 8.5-10.1 [facility] Comment on above: Performed By: #### C DAVID, HSTROPN ####[facility] Dliokixxpa4[address] [place] [address]Dr. Garima Pulliam Chloride [Moles/Vol] 106 mmol/L Normal 98-107 [facility] Comment on above: Performed By: #### C DAVID, HSTROPN ####[facility] Guoizyabup54[address] [place] [address]Dr. Garima Pulliam CO2 [Moles/Vol] 29.8 mmol/L Normal 21.0-32.0 [facility] Comment on above: Performed By: #### C DAVID, HSTROPN ####[facility] Wmabmqttnb5476 [place] [address]Dr. Garima Pulliam Creatinine [Mass/Vol] 0.68 mg/dL Critically low 0.70-1.30 [facility] Comment on above: Performed By: #### C MP, HSTROPN ####[facility] Tnxgjryefb86[address] [place] [address]Dr. Garima Pulliam EGFR-AF EMIRATI >60 Normal >=60 [facility] Comment on above: Performed By: #### C MP, HSTROPN ####[facility] Zcznkxnfef3199 [place] [address]Dr. Chapislan Pulliam EGFR-NON AF EMIRATI >60 Normal >=60 [facility] Comment on above: Performed By: #### C MP, HSTROPN ####[facility] Ptwloarzjf18[address] [place] [address]Dr. Garima Pulliam Globulin (S) [Mass/Vol] 2.8 g/dL Normal [facility] Comment on above: Performed By: #### C MP, HSTROPN ####[facility] Xktrfmezlu9057 [place] [address]Dr. Garima Pulliam Glucose [Mass/Vol] 133 mg/dL Critically high 74-106 [facility] Comment on above: Performed By: #### C MP, HSTROPN ####[facility] Sjraeaobrd9198 [place] [address]Dr. Chapisrenu Pulliam Potassium [Moles/Vol] 3.6 mmol/L Normal 3.5-5.1 [facility] Comment on above: Performed By: #### C MP, HSTROPN ####[facility] Nidvceqpaf1838 [place] [address]Dr. Chapisrenu Pulliam Protein [Mass/Vol] 6.3 g/dL Critically low 6.4-8.2 [facility] Comment on above: Performed By: #### C MP, HSTROPN ####[facility] Dgzidhtrlh[address] [place], [place] [address]Dr. Chapisrenu Pulliam Sodium [Moles/Vol] 137 mmol/L Normal 136-145 [facility] Comment on above: Performed By: #### C MP, HSTROPN ####[facility] Ezcdcyqyon40[address] [place], [place] [address]Dr. Garima Pulliam Urea nitrogen [Mass/Vol] 15.0 mg/dL Normal 7.0-18.0 [facility] Comment on above: Performed By: #### C DAVID HSTROPN ####[facility] Kmqocyhzil36[address] [place] [address]Dr. Chapisrenu Pulliam Urea nitrogen/Creatinine [Mass ratio] 22.1 mg/mg Normal [facility] Comment on above: Performed By: #### C DAVID HSTROPN ####[facility] Wdwfuxnrbv48[address] [place] [address]Dr. Garima Heraclio TROPONIN, HIGH SENSITIVITYon 09-26-2022 HSTROP 12.8 pg/mL Normal 4.0-76.1 [facility] Comment on above: Result Comment: CUT- OFF POINTS HAVE BEEN ESTABLISHED BASED ON THE FOURTH UNIVERSAL DEFINITIONS OF MYOCARDIALINFARCTION. THE UPPER REFERENCE LIMIT (URL) OF TROPONIN, DEFINED THE 99TH PERCENTILE OFcTnI DISTRIBUTION IN A REFERENCE POPULATION, HAS BEEN CONFIRMED THE DECISION THRESHOLDFOR DE DIAGNOSIS. Performed By: #### C DAVID HSTROPN ####[facility] Wkybwttefi[address] [place] [address]Dr. Chapisrenu Pulliam XR CHEST 1 Von 09-26-2022 XR CHEST 1 V Normal [facility] XR CHEST 1 Von 09-16-2022 XR CHEST 1 V Normal [facility] CBC AUTO DIFFon 09-15-2022 BASO # 0.0 103/ul Normal 0.0-0.1 [facility] Comment on above: Performed By: #### C BC ####[facility] Csoyedmtuq0983 [place] [address]Dr. Garima Heraclio Basophils/100 WBC (Bld) 0.1 % Critically low 0.2-2.0 [facility] Comment on above: Performed By: #### C BC ####[facility] Cxdfejfxvu1771 [place] [address]Dr. Garima Pulliam EO # 0.0 103/ul Normal 0.0-0.7 [facility] Comment on above: Performed By: #### C BC ####[facility] Znahlxzhic9674 [place] [address]Dr. Garima Pulliam Eosinophils/100 WBC (Bld) 0.1 % Critically low 0.9-7.0 [facility] Comment on above: Performed By: #### C BC ####[facility] Ffaotnegma7067 [place] [address]Dr. Garima Pulliam Erythrocyte distribution width (RBC) [Ratio] 14.1 % Normal 11.0-15.0 [facility] Comment on above: Performed By: #### C BC ####[facility] [address]bflnqjsq[address] [place], [place] [address]Dr. Garima Pulliam Hematocrit (Bld) [Volume fraction] 46.1 % Normal 42.0-54.0 [facility] Comment on above: Performed By: #### C BC ####[facility] Wfnbxswbtd[address] [place], [place] [address]Dr. Garima Pulliam Hemoglobin (Bld) [Mass/Vol] 15.0 g/dL Normal 14.0-18.0 [facility] Comment on above: Performed By: #### C BC ####[facility] Gjbxcnccns[address] [place], [place] [address]Dr. Garima Pulliam IG # 0.03 10e3/ul Normal 0.00-0.03 [facility] Comment on above: Performed By: #### C BC ####[facility] Kjmrqictwn[address] [place], [place] [address]Dr. Garima Pulliam IG % 0.3 % Normal 0.0-0.5 [facility] Comment on above: Performed By: #### C BC ####[facility] Irefkvhkfj50[address] [place], [place] [address]Dr. Garima Pulliam LYMPH # 0.6 103/ul Critically low 1.2-3.8 [facility] Comment on above: Performed By: #### C BC ####[facility] Twgtnlhohv[address] [place], [place] [address]Dr. Garima Pulliam Lymphocytes/100 WBC (Bld) 5.8 % Critically low 20.5-60.0 [facility] Comment on above: Performed By: #### C BC ####[facility] [address]opbvzhg19[address] [place] [phone]. Garima Pulliam MANUAL DIFF REQ NO Normal [facility] Comment on above: Performed By: #### C BC ####[facility] Axpdkfcjyn8[address] [place] [phone]. Garmia Pulliam MCH (RBC) [Entitic mass] 30.2 pg Normal 25.9-34.0 [facility] Comment on above: Performed By: #### C BC ####[facility] Hsgvfxswqo0370 [place] [address]Dr. Garima Pulliam MCHC (RBC) [Mass/Vol] 32.5 g/dL Normal 29.9-35.2 [facility] Comment on above: Performed By: #### C BC ####[facility] Zvkgylwpic7844 [place] [address]Dr. Garima Pulliam MCV (RBC) [Entitic vol] 92.8 fL Normal 80.0-94.0 [facility] Comment on above: Performed By: #### C BC ####[facility] Hpgpudzukm7922 [place] [address]Dr. Garima Heraclio MONO # 0.3 103/ul Normal 0.3-0.8 [facility] Comment on above: Performed By: #### C BC ####[facility] Dfhpinwzrp2147 [place] [phone]. Garima Heraclio Monocytes/100 WBC (Bld) 3.2 % Normal 1.7-12.0 [facility] Comment on above: Performed By: #### C BC ####[facility] [address]wnfjxvho[address] [place] [phone]. Garima Pulliam NEUT # 9.8 103/ul Critically high 1.4-6.5 [facility] Comment on above: Performed By: #### C BC ####[facility] Rdcnvkrhct5147 [place] [phone]. Garima Pulliam Neutrophils/100 WBC (Bld) 90.5 % Critically high 43.0-75.0 [facility] Comment on above: Performed By: #### C BC ####[facility] Kpfipaxgmn9230 [place] [phone]. Garima Pulliam Platelet mean volume (Bld) [Entitic vol] 9.4 fL Critically low 9.5-13.5 [facility] Comment on above: Performed By: #### C BC ####[facility] Sfoqdmxflb0029 [place] [phone]. Garima Pulliam PLT 208 103/ul Normal 150-450 [facility] Comment on above: Performed By: #### C BC ####[facility] Ijpelmcsll0288 [place] [address]Dr. Garima Pulliam RBC 4.97 106/ul Normal 4.70-6.10 [facility] Comment on above: Performed By: #### C BC ####[facility] Pvjylaskcv8053 [place] [address]Dr. Garima Pulliam WBC 10.8 103/ul Normal 4.0-11.0 [facility] Comment on above: Performed By: #### C BC ####[facility] Qyoukxtwng4055 [place] [address]Dr. Garima Pulliam PROF 14(COMP METB)on 022 Albumin [Mass/Vol] 4.0 g/dL Normal 3.4-5.0 [facility] Comment on above: Performed By: #### C MP ####[facility] Dmfzhuvzks6939 [place] [address]Dr. Garima Pulliam Albumin/Globulin [Mass ratio] 1.5 {ratio} Normal [facility] Comment on above: Performed By: #### C MP ####[facility] Shznwyryrj0011 [place] [address]Dr. Garima Pulliam ALP [Catalytic activity/Vol] 73 U/L Normal 46-116 [facility] Comment on above: Performed By: #### C MP ####[facility] Euvplaqcbd3961 [place] [address]Dr. Garima Pulliam ALT [Catalytic activity/Vol] 42 U/L Normal 16-63 [facility] Comment on above: Performed By: #### C MP ####[facility] Frxddiqcrp0078 [place] [address]Dr. Garima Pulliam Anion gap [Moles/Vol] 9.1 mmol/L Normal [facility] Comment on above: Performed By: #### C MP ####[facility] Omdwzmoaga8[address] [place], [place] [address]Dr. Garima Pulliam AST [Catalytic activity/Vol] 28 U/L Normal 15-37 [facility] Comment on above: Performed By: #### C MP ####[facility] Bbtvptimmn26[address] [place], [place] [address]Dr. Garima Pulliam Bilirubin [Mass/Vol] 0.6 mg/dL Normal 0.2-1.0 [facility] Comment on above: Performed By: #### C MP ####[facility] Xawtkeoskd833[address] [place], [place] [address]Dr. Garima Pulliam Calcium [Mass/Vol] 8.6 mg/dL Normal 8.5-10.1 [facility] Comment on above: Performed By: #### C MP ####[facility] Ivrvbpmagj535[address] [place], [place] [address]Dr. Garima Pulliam Chloride [Moles/Vol] 105 mmol/L Normal 98-107 [facility] Comment on above: Performed By: #### C MP ####[facility] Brswixdjrm9[address] [place], [place] [address]Dr. Garima Pulliam CO2 [Moles/Vol] 28.5 mmol/L Normal 21.0-32.0 [facility] Comment on above: Performed By: #### C MP ####[facility] Sjcrxvjgdp85[address] [place], [place] [address]Dr. Garima Heraclio Creatinine [Mass/Vol] 0.78 mg/dL Normal 0.70-1.30 [facility] Comment on above: Performed By: #### C MP ####[facility] Wxwqjxqwba[address] [place], [place] [address]Dr. Chapisrenu Heraclio EGFR-AF EMIRATI >60 Normal >=60 [facility] Comment on above: Performed By: #### C MP ####[facility] Wapysshkev84[address] [place], [place] [address]Dr. Garima Pulliam EGFR-NON AF EMIRATI >60 Normal >=60 [facility] Comment on above: Performed By: #### C MP ####[facility] Nfrqthqmnz5349 [place] [address]Dr. Garima Pulliam Globulin (S) [Mass/Vol] 2.7 g/dL Normal [facility] Comment on above: Performed By: #### C MP ####[facility] Kvxjvysgzc6016 [place] [address]Dr. Garima Pulliam Glucose [Mass/Vol] 220 mg/dL Critically high 74-106 [facility] Comment on above: Performed By: #### C MP ####[facility] Bhaqcqeinp6973 [place] [address]Dr. Garima Pulliam Potassium [Moles/Vol] 3.6 mmol/L Normal 3.5-5.1 [facility] Comment on above: Performed By: #### C MP ####[facility] Vetrsnumlh[address] [place], [place] [address]Dr. Garima Pulliam Protein [Mass/Vol] 6.7 g/dL Normal 6.4-8.2 [facility] Comment on above: Performed By: #### C MP ####[facility] Onzwnyqwtk16[address] [place], [place] [address]Dr. Garima Pulliam Sodium [Moles/Vol] 139 mmol/L Normal 136-145 [facility] Comment on above: Performed By: #### C MP ####[facility] Frrsqotjtg237[address] [place], [place] [address]Dr. Garima Pullima Urea nitrogen [Mass/Vol] 11.0 mg/dL Normal 7.0-18.0 [facility] Comment on above: Performed By: #### C MP ####[facility] Shbklguymo[address] [place], [place] [address]Dr. Garima Pulliam Urea nitrogen/Creatinine [Mass ratio] 14.1 mg/mg Normal [facility] Comment on above: Performed By: #### C MP ####[facility] Eaenpptfqi[address] [place], [place] [address]Dr. Garima Pulliam CARDIAC NASH 3-6on 2 CK [Catalytic activity/Vol] 240 U/L Normal 39-308 [facility] Comment on above: Performed By: #### C MREP ####[facility] Wmshtgaiju3828 [place] [address]Dr. Garima Pulliam CK.MB [Mass/Vol] 10.38 ng/mL Critically high <=3.60 Th [facility] Comment on above: Performed By: #### C MREP ####[facility] Xnjhammtry7915 [place] [address]Dr. Garima Pulliam HSTROP 18.5 pg/mL Normal 4.0-76.1 [facility] Comment on above: Result Comment: CUT- OFF POINTS HAVE BEEN ESTABLISHED BASED ON THE FOURTH UNIVERSAL DEFINITIONS OF MYOCARDIALINFARCTION. THE UPPER REFERENCE LIMIT (URL) OF TROPONIN, DEFINED THE 99TH PERCENTILE OFcTnI DISTRIBUTION IN A REFERENCE POPULATION, HAS BEEN CONFIRMED THE DECISION THRESHOLDFOR DE DIAGNOSIS. Performed By: #### C MREP ####[facility] Hkehslgbnb0785 [place] [address]Dr. Garima Pulliam CK [Catalytic activity/Vol] 257 U/L Normal 39-308 [facility] Comment on above: Performed By: #### C MREP ####[facility] Glerbqpuwt[address] [place], [place] [address]Dr. Garima Pulliam CK.MB [Mass/Vol] 9.89 ng/mL Critically high <=3.60 [facility] Comment on above: Performed By: #### C MREP ####[facility] Quqexlnodp958[address] [place], [place] [address]Dr. Garima Pulliam HSTROP 16.9 pg/mL Normal 4.0-76.1 [facility] Comment on above: Result Comment: CUT- OFF POINTS HAVE BEEN ESTABLISHED BASED ON THE FOURTH UNIVERSAL DEFINITIONS OF MYOCARDIALINFARCTION. THE UPPER REFERENCE LIMIT (URL) OF TROPONIN, DEFINED THE 99TH PERCENTILE OFcTnI DISTRIBUTION IN A REFERENCE POPULATION, HAS BEEN CONFIRMED THE DECISION THRESHOLDFOR DE DIAGNOSIS. Performed By: #### C MREP ####[facility] Lamvidrqyx9606 [place] [address]Dr. Garima Heraclio CBC AUTO DIFFon 10-22-2022 BASO # 0.0 103/ul Normal 0.0-0.1 [facility] Comment on above: Performed By: #### C BC ####[facility] Dgwjzrglrs9833 [place] [phone]. Garima Pulliam Basophils/100 WBC (Bld) 0.1 % Critically low 0.2-2.0 [facility] Comment on above: Performed By: #### C BC ####[facility] Xwodnbdryv0834 [place] [address]Dr. Garima Pulliam EO # 0.0 103/ul Normal 0.0-0.7 [facility] Comment on above: Performed By: #### C BC ####[facility] Oykogamiwu[address] [place], [place] [address]Dr. Chapisrenu Heraclio Eosinophils/100 WBC (Bld) 0.0 % Critically low 0.9-7.0 [facility] Comment on above: Performed By: #### C BC ####[facility] Kkzzwhllcj216[address] [place], [place] [address]Dr. Garima Pulliam Erythrocyte distribution width (RBC) [Ratio] 13.6 % Normal 11.0-15.0 [facility] Comment on above: Performed By: #### C BC ####[facility] Kblnzpjgad6[address] [place], [place] [address]Dr. Garima Pulliam Hematocrit (Bld) [Volume fraction] 48.2 % Normal 42.0-54.0 [facility] Comment on above: Performed By: #### C BC ####[facility] Tgsyyjrgkx379[address] [place], [place] [address]Dr. Garima Pulliam Hemoglobin (Bld) [Mass/Vol] 16.0 g/dL Normal 14.0-18.0 [facility] Comment on above: Performed By: #### C BC ####[facility] Kfagrhbeoa[address] [place], [place] [address]Dr. Chapisrenu Heraclio IG # 0.02 10e3/ul Normal 0.00-0.03 [facility] Comment on above: Performed By: #### C BC ####[facility] Davpfpdevk4077 [place] [phone]. Garima Pulliam IG % 0.3 % Normal 0.0-0.5 [facility] Comment on above: Performed By: #### C BC ####[facility] Jofltnqcjm6813 [place] [address]Dr. Garima Heraclio LYMPH # 0.5 103/ul Critically low 1.2-3.8 [facility] Comment on above: Performed By: #### C BC ####[facility] Iqexyxrlbg0124 [place] [address]Dr. Garima Heraclio Lymphocytes/100 WBC (Bld) 7.7 % Critically low 20.5-60.0 [facility] Comment on above: Performed By: #### C BC ####[facility] Beutuunzmz[address] [place], [place] [address]Dr. Chapisrenu Pulliam MANUAL DIFF REQ NO Normal [facility] Comment on above: Performed By: #### C BC ####[facility] S[address]jcuzyhxt[address] [place], [place] [address]Dr. Garima Heraclio MCH (RBC) [Entitic mass] 30.6 pg Normal 25.9-34.0 [facility] Comment on above: Performed By: #### C BC ####[facility] Zskzsmkixo84[address] [place], [place] [address]Dr. Garima Pulliam MCHC (RBC) [Mass/Vol] 33.2 g/dL Normal 29.9-35.2 [facility] Comment on above: Performed By: #### C BC ####[facility] Thntbaruvp[address] [place], [place] [address]Dr. Garima Heraclio MCV (RBC) [Entitic vol] 92.2 fL Normal 80.0-94.0 [facility] Comment on above: Performed By: #### C BC ####[facility] Roowzphwxx44[address] [place], [place] [address]Dr. Garima Pulliam MONO # 0.0 103/ul Critically low 0.3-0.8 [facility] Comment on above: Performed By: #### C BC ####[facility] Kjufudmgvm7780 [place] [id number]. Garima Pulliam Monocytes/100 WBC (Bld) 0.4 % Critically low 1.7-12.0 [facility] Comment on above: Performed By: #### C BC ####[facility] Berrrwzmxm8403 [place] [id number]. Garima Pulliam NEUT # 6.2 103/ul Normal 1.4-6.5 [facility] Comment on above: Performed By: #### C BC ####[facility] Pidqkjhhai8[address] [place] [address]Dr. Garima Pulliam Neutrophils/100 WBC (Bld) 91.5 % Critically high 43.0-75.0 [facility] Comment on above: Performed By: #### C BC ####[facility] [address]ikokwsnuh3337 [place] [address]Dr. Garima Pulliam Platelet mean volume (Bld) [Entitic vol] 8.7 fL Critically low 9.5-13.5 [facility] Comment on above: Performed By: #### C BC ####[facility] Lodtdacbiu8[address] [place] [id number]. Garima Pulliam PLT 179 103/ul Normal 150-450 [facility] Comment on above: Performed By: #### C BC ####[facility] [address]ur[address] [place] [id number]. Garima Pulliam RBC 5.23 106/ul Normal 4.70-6.10 [facility] Comment on above: Performed By: #### C BC ####[facility] [address] [place] [address]Dr. Garima Pulliam WBC 6.7 103/ul Normal 4.0-11.0 [facility] Comment on above: Performed By: #### C BC ####[facility] [address] [place] [address]Dr. Garima Pulliam PROF CHEM 8 (BAS METB)on Anion gap [Moles/Vol] 12.1 mmol/L Normal Th [facility] Comment on above: Performed By: #### B MP ####[facility] T[address] [place] [id number]. Garima Pulliam Calcium [Mass/Vol] 8.7 mg/dL Normal 8.5-10.1 [facility] Comment on above: Performed By: #### B MP ####[facility] Fbblbgtvop[address] [place] [id number]. Garima Pulliam Chloride [Moles/Vol] 105 mmol/L Normal 98-107 [facility] [place] Comment on above: Performed By: #### B MP ####[facility] [address]jzktnrn5[address] [place] [id number]. Garima Pulliam CO2 [Moles/Vol] 25.5 mmol/L Normal 21.0-32.0 [facility] Comment on above: Performed By: #### B MP ####[facility] [address] [place] [address]Dr. Garima Pulliam Creatinine [Mass/Vol] 0.63 mg/dL Critically low 0.70-1.30 [facility] [place] Comment on above: Performed By: #### B MP ####[facility] [address] [place] [address]Dr. Garima Pulliam EGFR-AF EMIRATI >60 Normal >=60 [facility] Comment on above: Performed By: #### B MP ####[facility] [address]cmgesr[address] [place] [address]Dr. Garima Pulliam EGFR-NON AF EMIRATI >60 Normal >=60 [facility] [place] Comment on above: Performed By: #### B MP ####[facility] Itcix[address] [place] [address]Dr. Garima Pulliam Glucose [Mass/Vol] 162 mg/dL Critically high 74-106 [facility] Comment on above: Performed By: #### B MP ####[facility] [address] [place], [place] [address]Dr. Garima Pulliam Potassium [Moles/Vol] 3.6 mmol/L Normal 3.5-5.1 [facility] Comment on above: Performed By: #### B MP ####[facility] L[address] [place], [place] [address]Dr. Garima Pulliam Sodium [Moles/Vol] 139 mmol/L Normal 136-145 [facility] Comment on above: Performed By: #### B DAVID ####[facility] [address] [place] [address]Dr. Garima Pulliam Urea nitrogen [Mass/Vol] 9.0 mg/dL Normal 7.0-18.0 [facility] [place] Comment on above: Performed By: #### B DAVID ####[facility] [address]omvcp[address] [place] [address]Dr. Garima Pulliam Urea nitrogen/Creatinine [Mass ratio] 14.3 mg/mg Normal [facility] [place] Comment on above: Performed By: #### B DAVID ####[facility] [address] [place] [address]Dr. Chapisrenu Pulliam CARDIAC NASH ADMITon 09-12- 022 CK [Catalytic activity/Vol] 304 U/L Normal 39-308 [facility] [place] Comment on above: Performed By: #### B NANCY HERNANDEZ ####[facility] [address]zxj[address]yur[address] [place] [address]Dr. Garima Pulliam CK.MB [Mass/Vol] 11.81 ng/mL Critically high <=3.60 Th [facility] Comment on above: Performed By: #### B NANCY HERNANDEZ ####[facility] Zsqquuiwbz[address] [place] [address]Dr. Garima Heraclio HSTROP 13.3 pg/mL Normal 4.0-76.1 [facility] [place] Comment on above: Result Comment: CUT- OFF POINTS HAVE BEEN ESTABLISHED BASED ON THE FOURTH UNIVERSAL DEFINITIONS OF MYOCARDIALINFARCTION. THE UPPER REFERENCE LIMIT (URL) OF TROPONIN, DEFINED THE 99TH PERCENTILE OFcTnI DISTRIBUTION IN A REFERENCE POPULATION, HAS BEEN CONFIRMED THE DECISION THRESHOLDFOR DE DIAGNOSIS. Performed By: #### B NANCY HERNANDEZ ####[facility] F[address]rosxazv[address] [place] [address]Dr. Garima Pulliam DORIS 133 ng/mL Critically high 16-96 [facility] Comment on above: Performed By: #### B NANCY HERNANDEZ ####[facility] [address]xxzm[address]pcz[address] [place] [address]Dr. Garima Pulliam CBC AUTO DIFFon 09-12-2022 BASO # 0.0 103/ul Normal 0.0-0.1 [facility] Comment on above: Performed By: #### C BC ####[facility] [address] [place], [place] [address]Dr. Garima Heraclio Basophils/100 WBC (Bld) 0.2 % Normal 0.2-2.0 [facility] Comment on above: Performed By: #### C BC ####[facility] Myrugb[address] [place], [place] [address]Dr. Garima Heraclio EO # 0.2 103/ul Normal 0.0-0.7 [facility] Comment on above: Performed By: #### C BC ####[facility] Mrkexlmyxj[address] [place], [place] [address]Dr. Chapisrenu Pulliam Eosinophils/100 WBC (Bld) 1.3 % Normal 0.9-7.0 [facility] Comment on above: Performed By: #### C BC ####[facility] Azih[address]utpeg[address] [place], [place] [address]Dr. Garima Pulliam Erythrocyte distribution width (RBC) [Ratio] 13.7 % Normal 11.0-15.0 [facility] Comment on above: Performed By: #### C BC ####[facility] [address]xkes[address] [place], [place] [address]Dr. Garima Pulliam Hematocrit (Bld) [Volume fraction] 46.4 % Normal 42.0-54.0 [facility] Comment on above: Performed By: #### C BC ####[facility] V[address]ibuvxlg[address] [place], [place] [address]Dr. Garima Pulliam Hemoglobin (Bld) [Mass/Vol] 15.7 g/dL Normal 14.0-18.0 [facility] Comment on above: Performed By: #### C BC ####[facility] Srnwqursej[address] [place], [place] [address]Dr. Garima Pulliam IG # 0.04 10e3/ul Critically high 0.00-0.03 [facility] Comment on above: Performed By: #### C BC ####[facility] [address]vnp[address]bia[address] [place] [id number]. Garima Pulliam IG % 0.3 % Normal 0.0-0.5 [facility] [place] Comment on above: Performed By: #### C BC ####[facility] Zjoev[address]mywx80[address] [place] [id number]. Garima Pulliam LYMPH # 1.7 103/ul Normal 1.2-3.8 [facility] Comment on above: Performed By: #### C BC ####[facility] Qvdlvfgdmw5901 [place] [id number]. Garima Pulliam Lymphocytes/100 WBC (Bld) 11.5 % Critically low 20.5-60.0 [facility] [place] Comment on above: Performed By: #### C BC ####[facility] K[address]lddovzfo[address] [place] [id number]. Garima Pulliam MANUAL DIFF REQ NO Normal [facility] Comment on above: Performed By: #### C BC ####[facility] Ufyitsgmhn40[address] [place] [id number]. Garima Pulliam MCH (RBC) [Entitic mass] 31.0 pg Normal 25.9-34.0 [facility] [place] Comment on above: Performed By: #### C BC ####[facility] Eowbegthvt9848 [place] [id number]. Garima Pulliam MCHC (RBC) [Mass/Vol] 33.8 g/dL Normal 29.9-35.2 [facility] Comment on above: Performed By: #### C BC ####[facility] Mcksdwwzug72[address] [place] [phone]. Garima Pulliam MCV (RBC) [Entitic vol] 91.7 fL Normal 80.0-94.0 [facility] Comment on above: Performed By: #### C BC ####[facility] Ifddoovjbn9259 [place] [id number]. Garima Heraclio MONO # 0.8 103/ul Normal 0.3-0.8 [facility] [place] Comment on above: Performed By: #### C BC ####[facility] Xialxsrzsq[address] [place] [id number]. Garima Pulliam Monocytes/100 WBC (Bld) 5.2 % Normal 1.7-12.0 [facility] Comment on above: Performed By: #### C BC ####[facility] Srgiulcdar13[address] [place] [phone]. Garima Pulliam NEUT # 11.7 103/ul Critically high 1.4-6.5 [facility] Comment on above: Performed By: #### C BC ####[facility] Lzfveqpqoh4086 [place] [id number]. Garima Pulliam Neutrophils/100 WBC (Bld) 81.5 % Critically high 43.0-75.0 [facility] Comment on above: Performed By: #### C BC ####[facility] Okt[address]zk[address] [place] [address]Dr. Garima Pulliam Platelet mean volume (Bld) [Entitic vol] 8.6 fL Critically low 9.5-13.5 [facility] Comment on above: Performed By: #### C BC ####[facility] Iyp[address]ubd12[address] [place] [id number]. Garima Pulliam PLT 191 103/ul Normal 150-450 [facility] Comment on above: Performed By: #### C BC ####[facility] [address] [place], [place] [address]Dr. Garima Pulliam RBC 5.06 106/ul Normal 4.70-6.10 [facility] Comment on above: Performed By: #### C BC ####[facility] [address] [place], [place] [address]Dr. Garima Pulliam WBC 14.4 103/ul Critically high 4.0-11.0 [facility] Comment on above: Performed By: #### C BC ####[facility] [address] [place], [place] [address]Dr. Garima Pulliam [facility]24 SARS-CoV-2 (COVID-19) RNA MARIE+probe Ql (Unsp spec) Not detected Normal NOT DETECTED [facility] Comment on above: Result Comment: When [...] for this test is supported by the [employer] of Health and Human Service's declaration that [...] be used). Performed By: #### C VDTBH ####[facility] Brtq[address] [place], [place] [address]Dr. Garima Pulliam LACTATE/LACTIC ACIDon 2021 Lactate [Moles/Vol] 1.0 mmol/L Normal 0.4-1.9 [facility] Comment on above: Performed By: #### L ACT ####[facility] [address] [place], [place] [address]Dr. Garima Pulliam PROF CHEM 8 (BAS METB)on Anion gap [Moles/Vol] 11.6 mmol/L Normal [facility] Comment on above: Performed By: #### B NANCY HERNANDEZ ####[facility] [address]jb[address] [place] [address]Dr. Garima Pulliam Calcium [Mass/Vol] 9.2 mg/dL Normal 8.5-10.1 [facility] Comment on above: Performed By: #### B NANCY HERNANDEZ ####[facility] Ujos[address]ujwwx[address] [place] [address]Dr. Garima Pulliam Chloride [Moles/Vol] 105 mmol/L Normal 98-107 [facility] [place] Comment on above: Performed By: #### B MP, CMADM ####[facility] [address]ofodjwo[address] [place] [id number]. Garima Pulliam CO2 [Moles/Vol] 25.9 mmol/L Normal 21.0-32.0 [facility] Comment on above: Performed By: #### B DAVID, CMADM ####[facility] Ovdnhfxxpi[address] [place] [address]Dr. Garima Pulliam Creatinine [Mass/Vol] 0.72 mg/dL Normal 0.70-1.30 [facility] [place] Comment on above: Performed By: #### B DAVID, CMADM ####[facility] [address]yndzxuya[address] [place] [id number]. Garima Pulliam EGFR-AF EMIRATI >60 Normal >=60 [facility] Comment on above: Performed By: #### B DAVID, CMADM ####[facility] [address]erm[address] [place] [address]Dr. Chapisrenu Pulliam EGFR-NON AF EMIRATI >60 Normal >=60 [facility] [place] Comment on above: Performed By: #### B DAVID, CMAANA ROSA ####[facility] [address]cs[address] [place] [address]Dr. Garima Pulliam Glucose [Mass/Vol] 111 mg/dL Critically high 74-106 [facility] Comment on above: Performed By: #### B DAVID, CMADM ####[facility] Qcfnvjkpbm59[address] [place] [address]Dr. Chapisrenu Pulliam Potassium [Moles/Vol] 3.5 mmol/L Normal 3.5-5.1 [facility] [place] Comment on above: Performed By: #### B DAVID, CMADM ####[facility] Q[address]ms[address]cpklr[address] [place] [address]Dr. Chapisrenu Pulliam Sodium [Moles/Vol] 139 mmol/L Normal 136-145 [facility] Comment on above: Performed By: #### B DAVID, CMADM ####[facility] [address]jqzlspcco[address] [place] [address]Dr. Garima Pulliam Urea nitrogen [Mass/Vol] 7.0 mg/dL Normal 7.0-18.0 [facility] [place] Comment on above: Performed By: #### B DAVID, CMADM ####[facility] [address]qlbpxddl7830 [place], [place] [address]Tf. Garima Pulliam Urea nitrogen/Creatinine [Mass ratio] 9.7 mg/mg Normal [facility] [place] Comment on above: Performed By: #### B MP, CMADM ####[facility] [address] [place], [place] [address]Ga. Garima Pulliam XR CHEST 1 Von 09-12-2022 XR CHEST 1 V Normal [facility] Encounters Encounter Date Encounter Type [...] Facility:[facility] Start: 11-20-2022 End: 11-20-[address] AKNE POLLOCK . Facility:[facility] Start: 10-01-2022 End: 10-02-[address] MILADIS MELARA . Facility:[facility] Start: 09-29-2022 End: 09-29-2022 ambulatory LEIA ALLEN . Facility:[facility] Start: 09-26-2022 End: 09-26-[address] MILADIS MELARA . Facility:[facility] Start: 09-15-2022 End: 09-16-[address] NASH STEVENS Facility:[facility] Start: 09-13-2022 End: 09-13-[address] SEBAS CABALLERO . Facility:[facility] Payers Date Payer Category Payer Unknown [id number] 1960 Medicaid [id number] 1960 Unknown [id number] 1960 Unknown [id number] 1954 Unknown [id number] 2.16.84 0.1.275348.3.579.2.593 1954 Unknown [id number] 2.16.84 0.1.859576.3.579.2.593 1954 Unknown [id number] 2.16.84 0.1.096334.3.579.2.593 1954 Unknown [id number] 2.16.84 0.1.901362.3.579.2.593 1954 Unknown [id number] 2.16.84 0.1.995861.3.579.2.593 1954 Unknown [id number] 2.16.84 0.1.931180.3.579.2.593 1954 Unknown [id number] 2.16.84 0.1.726962.3.579.2.593 1954 Unknown [id number] 2.16.84 0.1.125038.3.579.2.593 1954 Unknown [id number] 2.16.84 0.1.724652.3.579.2.593 1954 Unknown [id number] 2.16.84 0.1.871387.3.579.2.593 1954 Unknown [id number] 2.16.84 0.1.654967.3.579.2.593 1954 Unknown [id number] 2.16.84 0.1.225197.3.579.2.593 1954 Unknown [id number] 2.16.84 0.1.491700.3.579.2.593 1954 Unknown [id number] 2.16.84 0.1.748110.3.579.2.593 1954 Unknown [id number] 2.16.84 0.1.111834.3.579.2.593 1954 Unknown [id number] 2.16.84 0.1.220630.3.579.2.593 1954 Unknown [id number] 2.16.84 0.1.130390.3.579.2.593 1954 Unknown [id number] 2.16.84 0.1.723539.3.579.2.593 1954 Unknown [id number] 2.16.84 0.1.976100.3.579.2.593 1954 Unknown [id number] 2.16.84 0.1.964096.3.579.2.593 Summary Purpose Family History No Family History Records Found Advance Directives No Advanced Directives Records Found Additional Source Comments (unrecognized sect ion and content) No Status Records Found INFORMATION SOURCE (unrecogn ized section and content) DATE CREATED AUTHOR 04/08/2023 [facility] FOR RECORDS PERTAINING TO PATIENTS WHO [...] THE PRIMARY CLINICAL RECORDS. [facility] [employer] [facility] provides no warranty or guarantee of the accuracy or completeness of information in this document.
--- NOTE | 2024-12-10 16:01 | ED_ITS ---
HPI - SOB/Dyspnea General Chief Complaint: Shortness of Breath/Dyspnea Stated Complaint: sob Time Seen by Provider: 12/10/24 15:42 Source: patient Mode of arrival: Wheelchair History of Present Illness HPI Narrative: Patient presents to ER complaining of shortness of breath. He has chronic COPD and he comes in very often for breathing treatments. He also states he is out of his blood pressure medicine and he has hypertension on arrival. He denies any chest pain or headaches or strokelike symptoms. No abdominal pain or back pain. He states he usually just gets a breathing treatment and leaves. Patient states he has been out of his medication for a short time usually comes in for nebulizer treatments. Patient does not know what he is taking for his blood pressure but his medication list states that he is on losartan. Patient is alert and oriented. Oxygen saturation was 96% on room air. No acute respiratory distress. Patient is still smoking. Related Data Home Medications ?Medication ?Instructions ?Recorded ?Confirmed albuterol sulfate 90 mcg/actuation 2 inh inhalation Q6H PRN shortness 03/13/24 10/02/24 aerosol inhaler of breath or wheezing Previous Rx's ?Medication ?Instructions ?Recorded losartan 100 mg tablet 100 mg PO DAILY #30 tabs 12/27/23 albuterol sulfate 2.5 mg/3 mL 2.5 mg (3 mL) inhalation Q6H PRN 05/26/24 (0.083 %) solution for nebulization shortness of breath or wheezing #90 mL loratadine 10 mg tablet (Claritin) 10 mg PO DAILY #20 tabs 05/30/24 albuterol sulfate 2.5 mg/3 mL 2.5 mg (3 mL) inhalation Q6H PRN 08/07/24 (0.083 %) solution for nebulization shortness of breath or wheezing #90 mL albuterol sulfate 90 mcg/actuation 2 inh inhalation Q4H PRN shortness 08/07/24 aerosol inhaler of breath or wheezing #8.5 grams albuterol sulfate 2.5 mg/3 mL 1.25 mg (1.5 mL) inhalation Q6H 09/04/24 (0.083 %) solution for nebulization PRN bronchospasm #75 mL albuterol sulfate 90 mcg/actuation 2 inh inhalation Q6H PRN shortness 09/04/24 aerosol inhaler of breath or wheezing #6.7 grams albuterol sulfate 2.5 mg/3 mL 2.5 mg (3 mL) inhalation Q6H PRN 09/12/24 (0.083 %) solution for nebulization shortness of breath or wheezing #90 mL prednisone 20 mg tablet See Rx Instructions .Route 09/21/24 .COMPLEX #12 tabs albuterol sulfate 2.5 mg/0.5 mL 2.5 mg (0.5 mL) inhalation Q4H PRN 10/02/24 solution for nebulization shortness of breath or wheezing #30 ea albuterol sulfate 90 mcg/actuation 2 inh inhalation Q4H PRN shortness 10/02/24 aerosol inhaler of breath or wheezing #6.7 grams albuterol sulfate 2.5 mg/3 mL 2.5 mg (3 mL) inhalation Q6H PRN 10/07/24 (0.083 %) solution for nebulization shortness of breath or wheezing #90 mL albuterol sulfate 90 mcg/actuation 2 inh inhalation Q4H PRN shortness 10/07/24 aerosol inhaler of breath or wheezing #8.5 grams hydrocodone 5 mg-acetaminophen 325 1 tab PO Q4H PRN pain #10 tabs 11/11/24 mg tablet ketorolac 10 mg tablet 10 mg PO Q8H PRN pain 1 day #10 11/11/24 tabs metformin 500 mg tablet 500 mg PO BID #30 tabs 11/11/24 ondansetron 4 mg disintegrating 4 mg PO Q4H PRN nausea and 11/11/24 tablet vomiting 3 days #6 tabs tamsulosin 0.4 mg capsule (Flomax) 0.4 mg PO DAILY 7 days #7 caps 11/11/24 tamsulosin 0.4 mg capsule (Flomax) 0.4 mg PO DAILY #14 caps 11/12/24 albuterol sulfate 90 mcg/actuation 1 inh inhalation Q6H PRN shortness 12/10/24 aerosol inhaler of breath or wheezing #8.5 grams ipratropium 0.5 mg-albuterol 3 mg 3 ml inhalation Q4H PRN shortness 12/10/24 (2.5 mg base)/3 mL nebulization of breath #90 mL soln Allergies Allergy/AdvReac Type Severity Reaction Status Date / Time No Known Drug Allergies Allergy Verified 11/21/24 19:22 Review of Systems ROS Status of ROS 10 or more systems reviewed and unremark able except as noted in history and below PFSH PFS Medical History (Updated 12/10/24 @ 16:42 by Rochelle Tan DO) Hypokalemia ?E87.6 - Hypokalemia (ICD-10) New onset type 2 diabetes mellitus ?E11.9 - Type 2 diabetes mellitus without complications (ICD-10) Lower extremity edema ?R60.0 - Localized edema (ICD-10) Edema ?R60.9 - Edema, unspecified (ICD-10) Acute hyperglycemia ?R73.9 - Hyperglycemia, unspecified (ICD-10) Tobacco abuse ?Z72.0 - Tobacco use (ICD-10) HTN (hypertension) ?I10 - Essential (primary) hypertension (ICD-10) Community acquired pneumonia ?J18.9 - Pneumonia, unspecified organism (ICD-10) Chronic obstructive pulmonary disease ?J44.9 - Chronic obstructive pulmonary disease, unspecified (ICD-10) Acute exacerbation of chronic obstructive pulmonary disease (COPD) ?J44.1 - Chronic obstructive pulmonary disease with (acute) exacerbation (ICD-10) RLL pneumonia ?J18.9 - Pneumonia, unspecified organism (ICD-10) COPD (chronic obstructive pulmonary disease) ?J44.9 - Chronic obstructive pulmonary disease, unspecified (ICD-10) Surgical History (Updated 01/29/24 @ 06:45 by Latonia Martin RN) Hx of tonsillectomy ?Z90.89 - Acquired absence of other organs (ICD-10) Family History (Updated 12/25/23 @ 21:28 by Kym Ordaz) Mother Family history of cancer Family history of hypertension Father Family history of cancer Social History Within the past year, how often did you have a drink containing alcohol: 4 or more times a week Within the past year, how many standard drinks containing alcohol did you have on a typical day: 3 or 4 Within the past year, how often did you have six or more drinks on one occasion: less than monthly Total score: 3 Score interpretation: A score of 4 or more indicates drinking is likely to affect patient's safety. Smoking status: Current every day smoker Non-prescribed substance use: cannabis (any form) Previous occupational history: retired Highest level of school completed/degree received: high school graduate Are you now , , , , never or living with a partner: In a typical week, how many times do you talk on the telephone with family, friends, or neighbors: twice per week How often do you get together with friends or relatives: once per week How often do you attend nondenominational or moravian services: never Do you belong to any clubs or organizations such as nondenominational groups unions, [employer] or athletic groups, or school groups: no Total score: 1 Score interpretation: A score of less than or equal to 1 indicates the most socially isolated. Little interest or pleasure in doing things: not at all Feeling down, depressed, or hopeless: not at all Feel stressed/tense/nervous/anxious/difficulty sleeping: not at all Do you think of yourself as: straight/heterosexual Gender Identity: male Exam Narrative Exam Narrative: Time Seen: [] Vital Signs: [Per nurse's notes.] General: [Alert] Skin: [Warm, dry, no rash.] Chronic skin changes from smoking Head: [Normocephalic, atraumatic.] Neck: [Supple, trachea midline.] Eye: [Pupils are equal, round and reactive to light, extraocular movements are intact, normal conjunctiva.] Cardiovascular: [Regular rate and rhythm, no murmur.] Hypertensive Respiratory: Diminished breath sounds bilaterally with mild wheezing no acute respiratory distress Gastrointestinal: [Soft, nontender, non distended, MSK: 5 out of 5 muscle strength x 4 extremities no calf pain or edema Psychiatric: [Cooperative, appropriate mood & affect.] Neurological: [Alert and oriented to person, place, time, and situation, no focal neurological deficit observed.] Constitutional Vital Signs, click to edit/add: Last Vital Signs Temp 98.3 F 12/10/24 15:44 Pulse 69 12/10/24 16:09 Resp 16 12/10/24 16:09 BP 174/82 H 12/10/24 16:42 Pulse Ox 99 12/10/24 16:30 O2 Del Method Room Air 12/10/24 16:30 Course Vital Signs Vital signs: Vital Signs Temperature 98.3 F 12/10/24 15:44 Pulse Rate 70 12/10/24 15:44 Respiratory Rate 22 H 12/10/24 15:44 Blood Pressure 222/100 H 12/10/24 15:44 Pulse Oximetry 96 12/10/24 15:44 Oxygen Delivery Method Room Air 12/10/24 15:44 Temperature 98.3 F 12/10/24 15:44 Pulse Rate 69 12/10/24 16:09 Respiratory Rate 16 12/10/24 16:09 Blood Pressure 174/82 H 12/10/24 16:42 Pulse Oximetry 99 12/10/24 16:30 Oxygen Delivery Method Room Air 12/10/24 16:30 MDM - SOB/Dyspnea MDM Narrative Medical decision making narrative: WithPatient's blood pressure improved his losartan dose. After his DuoNeb he was feeling much better. He states he wants to leave now. He said he does have his blood pressure medicine at home and does not need a refill. He states he needs a refill on his DuoNeb and albuterol inhaler. I stressed the importance of following up with a family doctor and having somebody manage his medical problems full-time and chronically. To decrease his use of the emergency room unless needed because we do not manage long-term care. Patient was also instructed to stop smoking. Patient will return to ED if worsening symptoms oth erwise follow-up with a family doctor. Differential Diagnosis Differential diagnosis: Likely acute exacerbation of chronic obstructive airways disease and asthma with exacerbation Medical Records Attestation: I reviewed the patient's medical records. Smoking Cessation Time spent discussing smoking cessation with patient: 3 to 10 minutes Patient Acknowledges Need for Cessation: Yes Discharge Plan Discharge Chief Complaint: Shortness of Breath/Dyspnea Clinical Impression: Dyspnea, Hypertension Patient Disposition: Home, Self-Care Time of Disposition Decision: 16:41 Condition: Fair Mode of Transportation: Private Vehicle Prescriptions / Home Meds: New ipratropium-albuterol 0.5 mg-3 mg(2.5 mg base)/3 mL solution for nebulization 3 ml inhalation Q4H PRN (Reason: shortness of breath) Qty: 90 0RF Rx Instructions: until breathing returns to target peak flow/parameters albuterol sulfate 90 mcg/actuation HFA aerosol inhaler 1 inh inhalation Q6H PRN (Reason: shortness of breath or wheezing) Qty: 8.5 0RF No Action losartan 100 mg tablet 100 mg PO DAILY Qty: 30 11RF albuterol sulfate 90 mcg/actuation HFA aerosol inhaler 2 inh inhalation Q6H PRN (Reason: shortness of breath or wheezing) albuterol sulfate 2.5 mg /3 mL (0.083 %) solution for nebulization 2.5 mg inhalation Q6H PRN (Reason: shortness of breath or wheezing) Qty: 90 0RF albuterol sulfate 2.5 mg /3 mL (0.083 %) solution for nebulization 2.5 mg inhalation Q6H PRN (Reason: shortness of breath or wheezing) Qty: 90 0RF albuterol sulfate 90 mcg/actuation HFA aerosol inhaler 2 inh inhalation Q4H PRN (Reason: shortness of breath or wheezing) Qty: 8.5 0RF albuterol sulfate 2.5 mg /3 mL (0.083 %) solution for nebulization 2.5 mg inhalation Q6H PRN (Reason: shortness of breath or wheezing) Qty: 90 0RF prednisone 20 mg tablet See Rx Instructions .ROUTE .COMPLEX Qty: 12 0RF Rx Instructions: 3 tabs daily for 2 days, then 2 tabs daily for 2 days, then 1 tab daily for 2 days albuterol sulfate 2.5 mg/0.5 mL solution for nebulization 2.5 mg inhalation Q4H PRN (Reason: shortness of breath or wheezing) Qty: 30 2RF albuterol sulfate 90 mcg/actuation HFA aerosol inhaler 2 inh inhalation Q4H PRN (Reason: shortness of breath or wheezing) Qty: 6.7 0RF loratadine [Claritin] 10 mg tablet 10 mg PO DAILY Qty: 20 0RF albuterol sulfate 2.5 mg /3 mL (0.083 %) solution for nebulization 1.25 mg inhalation Q6H PRN (Reason: bronchospasm) Qty: 75 0RF albuterol sulfate 90 mcg/actuation HFA aerosol inhaler 2 inh inhalation Q6H PRN (Reason: shortness of breath or wheezing) Qty: 6.7 0RF albuterol sulfate 90 mcg/actuation HFA aerosol inhaler 2 inh inhalation Q4H PRN (Reason: shortness of breath or wheezing) Qty: 8.5 0RF albuterol sulfate 2.5 mg /3 mL (0.083 %) solution for nebulization 2.5 mg inhalation Q6H PRN (Reason: shortness of breath or wheezing) Qty: 90 0RF hydrocodone-acetaminophen 5-325 mg tablet 1 tab PO Q4H PRN (Reason: pain) Qty: 10 0RF ketorolac 10 mg tablet 10 mg PO Q8H PRN (Reason: pain) 1 Days Qty: 10 0RF tamsulosin [Flomax] 0.4 mg capsule 0.4 mg PO DAILY 7 Days Qty: 7 0RF ondansetron 4 mg tablet,disintegrating 4 mg PO Q4H PRN (Reason: nausea and vomiting) 3 Days Qty: 6 0RF metformin 500 mg tablet 500 mg PO BID Qty: 30 0RF tamsulosin [Flomax] 0.4 mg capsule 0.4 mg PO DAILY Qty: 14 0RF Print Language: [place] Instructions: Dyspnea (ED), Hypertension (ED) Referrals: SERG DUENAS [Primary Care Provider] - 1 week
[2024-12-10] MEDS: IPRATROPIUM/ALBUTEROL SULFATE 3 ML AMPUL.NEB IH (16:08)
[2024-12-10] MEDS: LOSARTAN POTASSIUM 50 MG TABLET 100 MG PO (16:17)
== END 2024-12-10 16:54 | disposition home or self-care (01) ==
PROVIDERS: Emergency Provider Emergency Medicine
DX: R06.00 Dyspnea, unspecified (principal); I10 Essential (primary) hypertension; J44.9 Chronic obstructive pulmonary disease, unspecified; F17.200 Nicotine dependence, unspecified, uncomplicated
CPT/HCPCS: 94640; 99283

== ENCOUNTER 2024-12-24 17:20 | Emergency (ER) | payer MEDICARE, SELFPAY ==
--- OUTSIDE RECORDS SUMMARY | 2024-12-24 17:28 | XMS_ITS | CCD ---
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 Garima Pulliam Basophils/100 WBC (Bld) 0.3 % Normal 0.2-2.0 [facility] Comment on above: Performed By: #### C BC ####[facility] Qqmhvfaxwx7522 [place] [address]DrAdalberto Pulliam EO # 0.3 103/ul Normal 0.0-0.7 [facility] Comment on above: Performed By: #### C BC ####[facility] Mccryyfvxj[address] [place], [place] [address]Dr. Garima Pulliam Eosinophils/100 WBC (Bld) 2.8 % Normal 0.9-7.0 [facility] Comment on above: Performed By: #### C BC ####[facility] Owhhjkufks79[address] [place] [address]Dr. Garima Pulliam Erythrocyte distribution width (RBC) [Ratio] 13.4 % Normal 11.0-15.0 [facility] Comment on above: Performed By: #### C BC ####[facility] Zebuvxvrsa7[address] [place] [address]Dr. Garima Pulliam Hematocrit (Bld) [Volume fraction] 45.7 % Normal 42.0-54.0 [facility] Comment on above: Performed By: #### C BC ####[facility] Gzxfignnwd3623 [place] [address]Dr. Garima Pulliam Hemoglobin (Bld) [Mass/Vol] 15.2 g/dL Normal 14.0-18.0 [facility] Comment on above: Performed By: #### C BC ####[facility] Shxbhrtijy28[address] [place] [address]Dr. Garima Pulliam IG # 0.02 10e3/ul Normal 0.00-0.03 [facility] Comment on above: Performed By: #### C BC ####[facility] Ciyhtbklrb0442 [place] [address]Dr. Garima Pulliam IG % 0.2 % Normal 0.0-0.5 [facility] Comment on above: Performed By: #### C BC ####[facility] Fggjcxxwhg4896 [place] [address]Dr. Garima Pulliam LYMPH # 2.1 103/ul Normal 1.2-3.8 [facility] Comment on above: Performed By: #### C BC ####[facility] Rhtwtzkcgw4357 [place] [address]Dr. Garima Pulliam Lymphocytes/100 WBC (Bld) 23.7 % Normal 20.5-60.0 [facility] Comment on above: Performed By: #### C BC ####[facility] Izkvqeryti8190 [place] [address]Dr. Garima Heraclio MANUAL DIFF REQ NO Normal [facility] Comment on above: Performed By: #### C BC ####[facility] Vycyphnset3137 [place] [address]Dr. Garima Pulliam MCH (RBC) [Entitic mass] 30.4 pg Normal 25.9-34.0 [facility] Comment on above: Performed By: #### C BC ####[facility] Yiyfsebmur2301 [place] [address]Dr. Garima Heraclio MCHC (RBC) [Mass/Vol] 33.3 g/dL Normal 29.9-35.2 [facility] Comment on above: Performed By: #### C BC ####[facility] Teioquxzmh[address] [place], [place] [address]Dr. Chapisrenu Pulliam MCV (RBC) [Entitic vol] 91.4 fL Normal 80.0-94.0 [facility] Comment on above: Performed By: #### C BC ####[facility] Dzukedndub[address] [place], [place] [address]Dr. Garima Heraclio MONO # 0.7 103/ul Normal 0.3-0.8 [facility] Comment on above: Performed By: #### C BC ####[facility] Mzapanljnd07[address] [place], [place] [address]Dr. Chapisrenu Pulliam Monocytes/100 WBC (Bld) 8.3 % Normal 1.7-12.0 [facility] Comment on above: Performed By: #### C BC ####[facility] Aofjhfcaku7686 [place] [address]Dr. Chapisrenu Heraclio NEUT # 5.8 103/ul Normal 1.4-6.5 [facility] Comment on above: Performed By: #### C BC ####[facility] Azolmrnqzm01[address] [place], [place] [address]Dr. Garima Pulliam Neutrophils/100 WBC (Bld) 64.7 % Normal 43.0-75.0 [facility] Comment on above: Performed By: #### C BC ####[facility] Ngrgopoevl5316 [place] [address]Dr. Garima Pulliam Platelet mean volume (Bld) [Entitic vol] 8.6 fL Critically low 9.5-13.5 [facility] Comment on above: Performed By: #### C BC ####[facility] Dvipfstmfa1292 [place] [address]Dr. Garima Pulliam PLT 230 103/ul Normal 150-450 [facility] Comment on above: Performed By: #### C BC ####[facility] Zzsycudhjs2612 [place] [address]Dr. Chapisrenu Heraclio RBC 5.00 106/ul Normal 4.70-6.10 [facility] Comment on above: Performed By: #### C BC ####[facility] Chveixmoyt0937 [place] [address]Dr. Garima Heraclio WBC 9.0 103/ul Normal 4.0-11.0 [facility] Comment on above: Performed By: #### C BC ####[facility] Yelxluumgx7373 [place] [address]Dr. Garima Pulliam MAGNESIUMon 04-04-2023 Magnesium [Mass/Vol] 1.8 mg/dL Normal 1.8-2.4 [facility] Comment on above: Performed By: #### M G ####[facility] Sywrtbrplp2362 [place] [address]Dr. Chapisrenu Pulliam PROF 14(COMP METB)on 023 Albumin [Mass/Vol] 3.8 g/dL Normal 3.4-5.0 [facility] Comment on above: Performed By: #### C MP ####[facility] Eszshupakp5485 [place] [address]Dr. Garima Pulliam Albumin/Globulin [Mass ratio] 1.2 {ratio} Normal [facility] Comment on above: Performed By: #### C MP ####[facility] Kzfujshvsc6449 [place] [address]Dr. Garima Heraclio ALP [Catalytic activity/Vol] 84 U/L Normal 46-116 [facility] Comment on above: Performed By: #### C MP ####[facility] Beqvqzgjdr1420 [place] [phone]. Garima Pulliam ALT [Catalytic activity/Vol] 31 U/L Normal 16-63 [facility] Comment on above: Performed By: #### C MP ####[facility] Dwviwusnav7749 [place] [address]Dr. Garima Pulliam Anion gap [Moles/Vol] 12.2 mmol/L Normal [facility] Comment on above: Performed By: #### C MP ####[facility] Ripdqlwkcw0272 [place] [address]Dr. Garima Pulliam AST [Catalytic activity/Vol] 23 U/L Normal 15-37 [facility] Comment on above: Performed By: #### C MP ####[facility] Wtmxfjbbpf8[address] [place], [place] [address]Dr. Garima Pulliam Bilirubin [Mass/Vol] 0.5 mg/dL Normal 0.2-1.0 [facility] Comment on above: Performed By: #### C MP ####[facility] Jdiwdgtrhg2679[address] [place], [place] [address]Dr. Garima Pulliam Calcium [Mass/Vol] 9.2 mg/dL Normal 8.5-10.1 [facility] Comment on above: Performed By: #### C MP ####[facility] Iopqvjniyv78[address] [place], [place] [address]Dr. Garima Pulliam Chloride [Moles/Vol] 103 mmol/L Normal 98-107 [facility] Comment on above: Performed By: #### C MP ####[facility] Ancenztwut0808 [place] [address]Dr. Garima Pulliam CO2 [Moles/Vol] 28.5 mmol/L Normal 21.0-32.0 [facility] Comment on above: Performed By: #### C MP ####[facility] Eszphkkbyw4438[address] [place], [place] [address]Dr. Garima Pulliam Creatinine [Mass/Vol] 0.74 mg/dL Normal 0.70-1.30 [facility] Comment on above: Performed By: #### C MP ####[facility] Fdftgjtxwx4384 [place] [phone]. Garima Pulliam EGFR-AF NIGERIAN >60 Normal >=60 [facility] Comment on above: Performed By: #### C MP ####[facility] Qwfrqpvyxd9703 [place] [address]Dr. Garima Heraclio EGFR-NON AF NIGERIAN >60 Normal >=60 [facility] Comment on above: Performed By: #### C MP ####[facility] Ilyqqubric8889 [place] [phone]. Garima Heraclio Globulin (S) [Mass/Vol] 3.1 g/dL Normal [facility] Comment on above: Performed By: #### C MP ####[facility] Taaunyzrxl45[address] [place], [place] [address]Dr. Garima Heraclio Glucose [Mass/Vol] 93 mg/dL Normal 74-106 [facility] Comment on above: Performed By: #### C MP ####[facility] Kwanhvcsys[address] [place], [place] [address]Dr. Garima Heraclio Potassium [Moles/Vol] 3.7 mmol/L Normal 3.5-5.1 [facility] Comment on above: Performed By: #### C MP ####[facility] Duwbbyvrdj9[address] [place], [place] [address]Dr. Garima Heraclio Protein [Mass/Vol] 6.9 g/dL Normal 6.4-8.2 [facility] Comment on above: Performed By: #### C MP ####[facility] Uvlxfamvbn297[address] [place], [place] [address]Dr. Garima Heraclio Sodium [Moles/Vol] 140 mmol/L Normal 136-145 [facility] Comment on above: Performed By: #### C MP ####[facility] Wdojlubcnc4[address] [place], [place] [address]Dr. Garima Pulliam Urea nitrogen [Mass/Vol] 8.0 mg/dL Normal 7.0-18.0 [facility] Comment on above: Performed By: #### C MP ####[facility] Xvefqqwmpp4481[address] [place], [place] [address]Dr. Garima Pulliam Urea nitrogen/Creatinine [Mass ratio] 10.8 mg/mg Normal [facility] Comment on above: Performed By: #### C DAVID ####[facility] Ynyshgtuhq2251 [place] [address]Dr. Garima Pulliam AMMONIAon 03-30-2023 Ammonia (P) [Moles/Vol] 11 umol/L Normal 11-32 [facility] Comment on above: Performed By: #### A MM ####[facility] Trlrkqbdgh720[address] [place], [place] [address]Dr. Garima Pulliam CARDIAC NASH ADMITon 023 CK [Catalytic activity/Vol] 232 U/L Normal 39-308 [facility] Comment on above: Performed By: #### C NANCY HERNANDEZ ####[facility] Mhvlmtjtmt7996 [place] [address]Dr. Chapisreun Pulliam CK.MB [Mass/Vol] 4.83 ng/mL Critically high <=3.60 [facility] Comment on above: Performed By: #### C NANCY HERNANDEZ ####[facility] Kldbndfbvg[address] [place], [place] [address]Dr. Garima Pulliam HSTROP 10.5 pg/mL Normal 4.0-76.1 [facility] Comment on above: Result Comment: CUT- OFF POINTS HAVE BEEN ESTABLISHED BASED ON THE FOURTH UNIVERSAL DEFINITIONS OF MYOCARDIALINFARCTION. THE UPPER REFERENCE LIMIT (URL) OF TROPONIN, DEFINED THE 99TH PERCENTILE OFcTnI DISTRIBUTION IN A REFERENCE POPULATION, HAS BEEN CONFIRMED THE DECISION THRESHOLDFOR [place] DIAGNOSIS. Performed By: #### C NANCY EHRNANDEZ ####[facility] Qqtlmkvrci16[address] [place], [place] [address]Dr. Garima Heraclio DORIS 79 ng/mL Normal 16-96 [facility] Comment on above: Performed By: #### C NANCY HERNANDEZ ####[facility] Yjuddbirvs14[address] [place], [place] [address]Dr. Garima Heraclio CBC AUTO DIFFon 03-30-2023 BASO # 0.0 103/ul Normal 0.0-0.1 [facility] Comment on above: Performed By: #### C BC ####[facility] Yeskcpzkrs0760 [place] [phone]. Garima Pulliam Basophils/100 WBC (Bld) 0.1 % Critically low 0.2-2.0 [facility] Comment on above: Performed By: #### C BC ####[facility] Uudfspmtye2588 [place] [phone]. Garima Pulliam EO # 0.3 103/ul Normal 0.0-0.7 [facility] Comment on above: Performed By: #### C BC ####[facility] Htvbovwatj[address] [place], [place] [phone]. Garima Pulliam Eosinophils/100 WBC (Bld) 3.3 % Normal 0.9-7.0 [facility] Comment on above: Performed By: #### C BC ####[facility] Tudyggdcqd[address] [place], [place] [phone]. Garima Pulliam Erythrocyte distribution width (RBC) [Ratio] 13.5 % Normal 11.0-15.0 [facility] Comment on above: Performed By: #### C BC ####[facility] Dmtacyapqw[address] [place], [place] [phone]. Garima Pulliam Hematocrit (Bld) [Volume fraction] 42.9 % Normal 42.0-54.0 [facility] Comment on above: Performed By: #### C BC ####[facility] Ojmcywnmjc[address] [place], [place] [phone]. Garima Pulliam Hemoglobin (Bld) [Mass/Vol] 13.9 g/dL Critically low 14.0-18.0 [facility] Comment on above: Performed By: #### C BC ####[facility] Fxbdgpxzck4838 [place] [phone]. Garima Pulliam IG # 0.01 10e3/ul Normal 0.00-0.03 [facility] Comment on above: Performed By: #### C BC ####[facility] Opdzoocayk[address] [place], [place] [phone]. Garima Pulliam IG % 0.1 % Normal 0.0-0.5 [facility] Comment on above: Performed By: #### C BC ####[facility] Vczicymlip3452 [place] [phone]. Garima Pulliam LYMPH # 1.7 103/ul Normal 1.2-3.8 [facility] Comment on above: Performed By: #### C BC ####[facility] Gdlmbyyyqq7732 [place], [place] [address]N[place]. Garima Pulliam Lymphocytes/100 WBC (Bld) 22.8 % Normal 20.5-60.0 [facility] Comment on above: Performed By: #### C BC ####[facility] Pcwbyoiibt9031 [place] [phone]. Garima Heraclio MANUAL DIFF REQ NO Normal [facility] Comment on above: Performed By: #### C BC ####[facility] Noffusuukf7623 [place] [phone]. Garima Heraclio MCH (RBC) [Entitic mass] 30.5 pg Normal 25.9-34.0 [facility] Comment on above: Performed By: #### C BC ####[facility] Izcroitbsg4809 [place] [phone]. Garima Pulliam MCHC (RBC) [Mass/Vol] 32.4 g/dL Normal 29.9-35.2 [facility] Comment on above: Performed By: #### C BC ####[facility] Weaxdzfvas9571 [place] [phone]. Garima Heraclio MCV (RBC) [Entitic vol] 94.1 fL Critically high 80.0-94.0 [facility] Comment on above: Performed By: #### C BC ####[facility] Maxpoqteoa8924 [place] [phone]. Garima Heraclio MONO # 0.7 103/ul Normal 0.3-0.8 [facility] Comment on above: Performed By: #### C BC ####[facility] Ghjhdcjqsy2220 [place] [phone]. Garima Heraclio Monocytes/100 WBC (Bld) 8.6 % Normal 1.7-12.0 [facility] Comment on above: Performed By: #### C BC ####[facility] Bogkbuaonc8351 [place] [phone]. Garima Pulliam NEUT # 4.9 103/ul Normal 1.4-6.5 [facility] Comment on above: Performed By: #### C BC ####[facility] Vsazjhikzq4145 [place] [phone]. Garima Pulliam Neutrophils/100 WBC (Bld) 65.1 % Normal 43.0-75.0 [facility] Comment on above: Performed By: #### C BC ####[facility] Ffruondsmo4289 [place] [phone]. Garima Pulliam Platelet mean volume (Bld) [Entitic vol] 8.5 fL Critically low 9.5-13.5 [facility] Comment on above: Performed By: #### C BC ####[facility] Xczljzofbb5547 [place] [phone]. Garima Pulliam PLT 219 103/ul Normal 150-450 [facility] Comment on above: Performed By: #### C BC ####[facility] Fdhbwbohvi7140 [place] [phone]. Garima Pulliam RBC 4.56 106/ul Critically low 4.70-6.10 [facility] Comment on above: Performed By: #### C BC ####[facility] Jmsdrckhbr5891 [place] [phone]. Garima Pulliam WBC 7.6 103/ul Normal 4.0-11.0 [facility] Comment on above: Performed By: #### C BC ####[facility] Bsmchjneny4636 [place] [phone]. Garima Pulliam LACTATE/LACTIC ACIDon 2022 Lactate [Moles/Vol] 1.2 mmol/L Normal 0.4-2.0 [facility] Comment on above: Performed By: #### L ACT ####[facility] Paomdwrosj5559 [place] [phone]. Garima Pulliam MAGNESIUMon 03-30-2023 Magnesium [Mass/Vol] 1.8 mg/dL Normal 1.8-2.4 [facility] Comment on above: Performed By: #### M G ####[facility] Vwwjcwjkqp6872 [place] [address]Dr. Garima Pulliam PROF 14(COMP METB)on 023 Albumin [Mass/Vol] 3.5 g/dL Normal 3.4-5.0 [facility] Comment on above: Performed By: #### C DAVID, CMAANA ROSA ####[facility] Tenyywmpdx2170 [place] [address]Dr. Garima Pulliam Albumin/Globulin [Mass ratio] 1.2 {ratio} Normal [facility] Comment on above: Performed By: #### C DAVID, CMAANA ROSA ####[facility] Dzznokwzss0732 [place] [address]Dr. Garima Pulliam ALP [Catalytic activity/Vol] 85 U/L Normal 46-116 [facility] Comment on above: Performed By: #### C DAVID, CMAANA ROSA ####[facility] Qtjuspdcoq[address] [place], [place] [address]Dr. Garima Pulliam ALT [Catalytic activity/Vol] 29 U/L Normal 16-63 [facility] Comment on above: Performed By: #### C DAVID, CMAANA ROSA ####[facility] Iwpdpeoydx0916 [place] [address]Dr. Garima Pulliam Anion gap [Moles/Vol] 8.0 mmol/L Normal [facility] Comment on above: Performed By: #### C DAVID, CMAANA ROSA ####[facility] Hfceewvsgn5603 [place] [address]Dr. Garima Pulliam AST [Catalytic activity/Vol] 18 U/L Normal 15-37 [facility] Comment on above: Performed By: #### C DAVID, CMADM ####[facility] Kcfynyhuog9717 [place] [address]Dr. Graima Pulliam Bilirubin [Mass/Vol] 0.4 mg/dL Normal 0.2-1.0 [facility] Comment on above: Performed By: #### C DAVID, CMADM ####[facility] Hxdsehwrfb5570 [place] [address]Dr. Garima Pulliam Calcium [Mass/Vol] 8.8 mg/dL Normal 8.5-10.1 [facility] Comment on above: Performed By: #### C DAVID, NANCY ####[facility] Fbhgdxruca4816 [place] [address]Dr. Chapisrenu Pulliam Chloride [Moles/Vol] 108 mmol/L Critically high 98-107 [facility] Comment on above: Performed By: #### C DAVID, NANCY ####[facility] Vlmrflxxes3249 [place] [address]Dr. Garima Pulliam CO2 [Moles/Vol] 29.6 mmol/L Normal 21.0-32.0 [facility] Comment on above: Performed By: #### C NANCY HERNANDEZ ####[facility] Gixhmympyk[address] [place], [place] [address]Dr. Garima Pulliam Creatinine [Mass/Vol] 0.77 mg/dL Normal 0.70-1.30 [facility] Comment on above: Performed By: #### C NANCY HERNANDEZ ####[facility] Vaydhjroqp[address] [place], [place] [address]Dr. Garima Heraclio EGFR-AF NIGERIAN >60 Normal >=60 [facility] Comment on above: Performed By: #### C NANCY HERNANDEZ ####[facility] Npzmyjckbx[address] [place], [place] [address]Dr. Garima Heraclio EGFR-NON AF NIGERIAN >60 Normal >=60 [facility] Comment on above: Performed By: #### C NANCY HERNANDEZ ####[facility] Fqqtadcutj3668 [place] [address]Dr. Garima Pulliam Globulin (S) [Mass/Vol] 2.8 g/dL Normal [facility] Comment on above: Performed By: #### C NANCY HERNANDEZ ####[facility] Zgdgmfpxsp2890 [place] [address]Dr. Garima Pulliam Glucose [Mass/Vol] 207 mg/dL Critically high 74-106 [facility] Comment on above: Performed By: #### C NANCY HERNANDEZ ####[facility] Ynjcwonnyi30[address] [place], [place] [address]Dr. Garima Pulliam Potassium [Moles/Vol] 4.6 mmol/L Normal 3.5-5.1 [facility] Comment on above: Performed By: #### C DAVID, NANCY ####[facility] Hwpyzmjpcu9289 [place] [address]Dr. Garima Pulliam Protein [Mass/Vol] 6.3 g/dL Critically low 6.4-8.2 [facility] Comment on above: Performed By: #### C DAVID, NANCY ####[facility] Erfkitsdof2610 [place] [address]Dr. Garima Pulliam Sodium [Moles/Vol] 141 mmol/L Normal 136-145 [facility] Comment on above: Performed By: #### C DAVID, NANCY ####[facility] Ojrwalenxs8171 [place] [address]Dr. Garima Pulliam Urea nitrogen [Mass/Vol] 9.0 mg/dL Normal 7.0-18.0 [facility] Comment on above: Performed By: #### C DAVID, NANCY ####[facility] Nnqwvjolhi1920 [place] [address]Dr. Garima Pulliam Urea nitrogen/Creatinine [Mass ratio] 11.7 mg/mg Normal [facility] Comment on above: Performed By: #### C DAVID, NANCY ####[facility] Vqleilxdap9051 [place] [address]Dr. Garima Pulliam XR CHEST 1 Von 03-30-2023 XR CHEST 1 V Normal [facility] BNPon 03-27-2023 Natriuretic peptide B (Bld) [Mass/Vol] 251.0 pg/mL Normal <=900.0 [facility] Comment on above: Performed By: #### C MP, BNP, LIPID ####[facility] Chonybmbtj6264 [place] [address]Dr. Garima Pulliam GLYCOHEMOGLOBIN A1Con 2022 ADA RECOMMENDATION SEE BELOW Normal [facility] Comment on above: Result Comment: ADA RECOMMENDED LIMIT 4.0 - 6.0 ADA THERAPEUTIC TARGET < 7.0 ACTION SUGGESTED > 7.0 Performed By: #### A 1C ####[facility] Gnkiufahng3004 [place] [address]Dr. Garima Pulliam Glucose [Mass/Vol] 180 mg/dL Normal [facility] Comment on above: Performed By: #### A 1C ####[facility] Fnaubqhkwt[address] [place], [place] [address]Dr. Chapisrenu Pulliam HbA1c (Bld) [Mass fraction] 7.9 % Critically high 4.5-6.2 [facility] Comment on above: Performed By: #### A 1C ####[facility] Gmjypoyheu8[address] [place], [place] [address]Dr. Garima Pulliam HEMOGRAM AND PLATELon 2022 Hematocrit (Bld) [Volume fraction] 45.7 % Normal 42.0-54.0 [facility] Comment on above: Performed By: #### H H ####[facility] Pwmbgjrjjh67[address] [place], [place] [address]Dr. Garima Pulliam Hemoglobin (Bld) [Mass/Vol] 15.1 g/dL Normal 14.0-18.0 [facility] Comment on above: Performed By: #### H H ####[facility] Cxtygflbtg57[address] [place], [place] [address]Dr. Garima Pulliam MCH (RBC) [Entitic mass] 30.0 pg Normal 25.9-34.0 [facility] Comment on above: Performed By: #### H H ####[facility] Kpqqszzqwj[address] [place], [place] [address]Dr. Garima Pulliam MCHC (RBC) [Mass/Vol] 33.0 g/dL Normal 29.9-35.2 [facility] Comment on above: Performed By: #### H H ####[facility] Wrqlykbcuj5[address] [place], [place] [address]Dr. Garima Pulliam MCV (RBC) [Entitic vol] 90.7 fL Normal 80.0-94.0 [facility] Comment on above: Performed By: #### H H ####[facility] Chokhgpbfs63[address] [place], [place] [address]Dr. Garima Pulliam PLT 222 103/ul Normal 150-450 [facility] Comment on above: Performed By: #### H H ####[facility] Drsvysxcvm4175 [place] [phone]. Garima Pulliam RBC 5.04 106/ul Normal 4.70-6.10 [facility] Comment on above: Performed By: #### H H ####[facility] Adezbbaxig5750 [place] [phone]. Garima Pulliam WBC 8.7 103/ul Normal 4.0-11.0 [facility] Comment on above: Performed By: #### H H ####[facility] Czrpkmeksj8218 [place] [phone]. Garima Pulliam LIPID PROFILEon 03-27-2023 CHOL-HDL RATIO NORM SEE BELOW Normal [facility] Comment on above: Result Comment: 3.3 - 4.4 LOW RISK 4.4 - 7.1 AVERAGE RISK 7.1 - 11.0 MODERATE RISK >11.0 HIGH RISK Performed By: #### C MP, BNP, LIPID ####[facility] Gjrciwxoqi2068 [place] [address]Dr. Garima Pulliam Cholesterol [Mass/Vol] 113 mg/dL Normal <=200 [facility] Comment on above: Performed By: #### C MP, BNP, LIPID ####[facility] Kptclasnkj2260 [place] [address]Dr. Garima Pulliam Cholesterol in HDL [Mass/Vol] 51 mg/dL Normal 40-60 [facility] Comment on above: Performed By: #### C MP, BNP, LIPID ####[facility] Ywlyzeimbe4697 [place] [address]Dr. Garima Pulliam Cholesterol in LDL [Mass/Vol] 49.8 mg/dL Normal [facility] Comment on above: Performed By: #### C MP, BNP, LIPID ####[facility] Aykzeihkja[address]18 [place] [place] [address]Dr. Garima Pulliam Cholesterol.total/Cho lesterol in HDL [Mass ratio] 2.2 {ratio} Normal [facility] Comment on above: Performed By: #### C MP, BNP, LIPID ####[facility] Ndxhcabhqi8[address] [place] [address]Dr. Garima Pulliam HDL NORMAL > or = 60 mg/dl - LOW CARDIOVASCULAR RISK <40 mg/dl - HIGH CARDIOVASCULAR RISK Normal [facility] Comment on above: Performed By: #### C MP, BNP, LIPID ####[facility] Bbgaiksdzs23[address] [place] [address]Dr. Garima Pulliam LDL CALC NORMAL SEE BELOW Normal [facility] Comment on above: Result Comment: <100 mg/dl OPTIMAL 100 - 129 mg/dl NEAR OR ABOVE OPTIMAL 130 - 159 mg/dl BORDERLINE HIGH 160 - 189 mg/dl HIGH >190 mg/dl VERY HIGH Performed By: #### C MP, BNP, LIPID ####[facility] Hnoyacvegx6354 [place] [address]Dr. Garima Pulliam Triglyceride [Mass/Vol] 61 mg/dL Normal <=150 [facility] Comment on above: Performed By: #### C MP, BNP, LIPID ####[facility] Pjzhhbqbkz30[address] [place] [address]Dr. Garima Pulliam VLDL CALC 12.2 mg/dL Normal [facility] Comment on above: Performed By: #### C MP, BNP, LIPID ####[facility] Pwnxkgnqvd6244 [place] [address]Dr. Garima Pulliam PROF 14(COMP METB)on 023 Albumin [Mass/Vol] 3.5 g/dL Normal 3.4-5.0 [facility] Comment on above: Performed By: #### C MP, BNP, LIPID ####[facility] Htzqbodqbs9140 [place] [address]Dr. Garima Pulliam Albumin/Globulin [Mass ratio] 1.2 {ratio} Normal [facility] Comment on above: Performed By: #### C MP, BNP, LIPID ####[facility] Gvhtegxltr1550 [place] [address]Dr. Garima Pulliam ALP [Catalytic activity/Vol] 82 U/L Normal 46-116 [facility] Comment on above: Performed By: #### C MP, BNP, LIPID ####[facility] Pznbdsjuoq6345 [place] [address]Dr. Garima Pulliam ALT [Catalytic activity/Vol] 33 U/L Normal 16-63 [facility] Comment on above: Performed By: #### C MP, BNP, LIPID ####[facility] Vfxvvjfxsk3001 [place] [address]Dr. Garima Pulliam Anion gap [Moles/Vol] 9.9 mmol/L Normal [facility] Comment on above: Performed By: #### C MP, BNP, LIPID ####[facility] Dxpghaiwvm3102 [place] [address]Dr. Garima Pulliam AST [Catalytic activity/Vol] 24 U/L Normal 15-37 [facility] Comment on above: Performed By: #### C MP, BNP, LIPID ####[facility] Pqenikbsyi4681 [place] [address]Dr. Garima Pulliam Bilirubin [Mass/Vol] 0.6 mg/dL Normal 0.2-1.0 [facility] Comment on above: Performed By: #### C MP, BNP, LIPID ####[facility] Akwhudnpbm8025 [place] [address]Dr. Garima Pulliam Calcium [Mass/Vol] 9.2 mg/dL Normal 8.5-10.1 [facility] Comment on above: Performed By: #### C MP, BNP, LIPID ####[facility] Iwmdzlknfa2734 [place] [address]Dr. Garima Pulliam Chloride [Moles/Vol] 106 mmol/L Normal 98-107 [facility] Comment on above: Performed By: #### C MP, BNP, LIPID ####[facility] Muueovnfku0157 [place] [address]Dr. Garima Pulliam CO2 [Moles/Vol] 32.3 mmol/L Critically high 21.0-32.0 [facility] Comment on above: Performed By: #### C MP, BNP, LIPID ####[facility] Mkaewuelhf7334 [place] [address]Dr. Garima Pulliam Creatinine [Mass/Vol] 0.70 mg/dL Normal 0.70-1.30 [facility] Comment on above: Performed By: #### C MP, BNP, LIPID ####[facility] Dqloqgrmqp6136 [place] [id number]. Garima Pulliam EGFR-AF NIGERIAN >60 Normal >=60 [facility] Comment on above: Performed By: #### C MP, BNP, LIPID ####[facility] Wfdykiijtv8994 [place] [phone]. Garima Pulliam EGFR-NON AF NIGERIAN >60 Normal >=60 [facility] Comment on above: Performed By: #### C MP, BNP, LIPID ####[facility] Tscoeekkza1136 [place] [address]Dr. Garima Pulliam Globulin (S) [Mass/Vol] 2.9 g/dL Normal [facility] Comment on above: Performed By: #### C MP, BNP, LIPID ####[facility] Vrdzqdntzb8176 [place] [address]Dr. Garima Pulliam Glucose [Mass/Vol] 111 mg/dL Critically high 74-106 [facility] Comment on above: Performed By: #### C MP, BNP, LIPID ####[facility] Yjeldbqlgp1972 [place] [address]Dr. Garima Pulliam Potassium [Moles/Vol] 4.2 mmol/L Normal 3.5-5.1 [facility] Comment on above: Performed By: #### C MP, BNP, LIPID ####[facility] Kkuxefvlzq8444 [place] [address]Dr. Garima Pulliam Protein [Mass/Vol] 6.4 g/dL Normal 6.4-8.2 [facility] Comment on above: Performed By: #### C MP, BNP, LIPID ####[facility] Rekxlggpmj2323 [place] [address]Dr. Garima Pulliam Sodium [Moles/Vol] 144 mmol/L Normal 136-145 [facility] Comment on above: Performed By: #### C MP, BNP, LIPID ####[facility] Ajyibcicay9635 [place] [address]Dr. Garima Pulliam Urea nitrogen [Mass/Vol] 7.0 mg/dL Normal 7.0-18.0 [facility] Comment on above: Performed By: #### C MP, BNP, LIPID ####[facility] Jturwqfutc35[address] [place], [place] [address]Dr. Garima Pulliam Urea nitrogen/Creatinine [Mass ratio] 10.0 mg/mg Normal [facility] Comment on above: Performed By: #### C MP, BNP, LIPID ####[facility] Gxphdvijrd18[address] [place], [place] [address]Dr. Garima Pulliam BNPon 03-22-2023 Natriuretic peptide B (Bld) [Mass/Vol] 103.0 pg/mL Normal <=900.0 [facility] Comment on above: Performed By: #### B MANAGER PAYROLL, BMP ####[facility] Tmruushaez05[address] [place], [place] [address]Dr. Garima Pulliam CBC AUTO DIFFon 03-22-2023 BASO # 0.0 103/ul Normal 0.0-0.1 [facility] Comment on above: Performed By: #### C BC ####[facility] Qadnhwnfid67[address] [place], [place] [address]Dr. Garima Heraclio Basophils/100 WBC (Bld) 0.3 % Normal 0.2-2.0 [facility] Comment on above: Performed By: #### C BC ####[facility] Qvbrucmrwp8125[address] [place], [place] [address]Dr. Garima Pulliam EO # 0.2 103/ul Normal 0.0-0.7 [facility] Comment on above: Performed By: #### C BC ####[facility] Sbpljnwkuf349[address] [place], [place] [address]Dr. Garima Pulliam Eosinophils/100 WBC (Bld) 2.2 % Normal 0.9-7.0 [facility] Comment on above: Performed By: #### C BC ####[facility] Yqqpjlwuws429[address] [place], [place] [address]Dr. Garima Pulliam Erythrocyte distribution width (RBC) [Ratio] 13.2 % Normal 11.0-15.0 [facility] Comment on above: Performed By: #### C BC ####[facility] Zetvcypazf5993 [place] [phone]. Garima Pulliam Hematocrit (Bld) [Volume fraction] 43.4 % Normal 42.0-54.0 [facility] Comment on above: Performed By: #### C BC ####[facility] Tqoqvjiccx6316 [place] [address]Dr. Garima Heraclio Hemoglobin (Bld) [Mass/Vol] 14.3 g/dL Normal 14.0-18.0 [facility] Comment on above: Performed By: #### C BC ####[facility] Esnajjubfo6951 [place] [address]Dr. Garima Pulliam IG # 0.02 10e3/ul Normal 0.00-0.03 [facility] Comment on above: Performed By: #### C BC ####[facility] Uqmkvhcoas6610 [place] [address]Dr. Garima Pulliam IG % 0.3 % Normal 0.0-0.5 [facility] Comment on above: Performed By: #### C BC ####[facility] Mwkkzhvfma7479 [place] [address]Dr. Chapisrenu Pulliam LYMPH # 2.0 103/ul Normal 1.2-3.8 [facility] Comment on above: Performed By: #### C BC ####[facility] Ablhsoxnyz6953 [place] [address]Dr. Chapisrenu Pulliam Lymphocytes/100 WBC (Bld) 24.8 % Normal 20.5-60.0 [facility] Comment on above: Performed By: #### C BC ####[facility] Ywrssltxke5434 [place] [address]Dr. Chapisrenu Pulliam MANUAL DIFF REQ NO Normal [facility] Comment on above: Performed By: #### C BC ####[facility] Mawemdzxxn0823 [place] [address]Dr. Garima Heraclio MCH (RBC) [Entitic mass] 30.0 pg Normal 25.9-34.0 [facility] Comment on above: Performed By: #### C BC ####[facility] Rtlughtduk7[address] [place], [place] [address]Dr. Garima Pulliam MCHC (RBC) [Mass/Vol] 32.9 g/dL Normal 29.9-35.2 [facility] Comment on above: Performed By: #### C BC ####[facility] Sybjlpgqpd9471 [place] [phone]. Garima Pulliam MCV (RBC) [Entitic vol] 91.0 fL Normal 80.0-94.0 [facility] Comment on above: Performed By: #### C BC ####[facility] Fzexhbvfiw7414 [place] [phone]. Garima Heraclio MONO # 0.8 103/ul Normal 0.3-0.8 [facility] Comment on above: Performed By: #### C BC ####[facility] Dgdrxlrhyn7811 [place] [address]Dr. Chapisrenu Pulliam Monocytes/100 WBC (Bld) 9.7 % Normal 1.7-12.0 [facility] Comment on above: Performed By: #### C BC ####[facility] Kgnuqexzzk3755 [place] [address]Dr. Garima Pulliam NEUT # 4.9 103/ul Normal 1.4-6.5 [facility] Comment on above: Performed By: #### C BC ####[facility] Htbqrfsjnh0042 [place] [phone]. Garima Heraclio Neutrophils/100 WBC (Bld) 62.7 % Normal 43.0-75.0 [facility] Comment on above: Performed By: #### C BC ####[facility] Zvvkdsjyuo5980 [place] [phone]. Garima Heraclio Platelet mean volume (Bld) [Entitic vol] 8.8 fL Critically low 9.5-13.5 [facility] Comment on above: Performed By: #### C BC ####[facility] Ybszwtykdi4337 [place] [phone]. Garima Heraclio PLT 198 103/ul Normal 150-450 [facility] Comment on above: Performed By: #### C BC ####[facility] Eugxgmkblb2139 [place] [phone]. Garima Heraclio RBC 4.77 106/ul Normal 4.70-6.10 [facility] Comment on above: Performed By: #### C BC ####[facility] Pefqmibbex7155 [place] [phone]. Garima Heraclio WBC 7.9 103/ul Normal 4.0-11.0 [facility] Comment on above: Performed By: #### C BC ####[facility] Xlrkxtbrey2566 [place] [phone]. Garima Heraclio D-DIMERon 03-22-2023 D-DIMER 0.85 mg/L FEU Critically high <=0.59 [facility] Comment on above: Performed By: #### D DIM ####[facility] Tufgyvdesw0059 [place] [address]Dr. Garima Pulliam D-DIMER COMMENTS SEE BELOW Normal [facility] Comment on above: Result Comment: Incr [...] By: #### D DIM ####[facility] Nrjtoopjrl[address] [place], [place] [address]Dr. Garima Pulliam PROF CHEM 8 (BAS METB)on Anion gap [Moles/Vol] 6.9 mmol/L Normal [facility] Comment on above: Performed By: #### B MANAGER PAYROLL, BMP ####[facility] Thctmwqihe0561 [place] [address]Dr. Garima Pulliam Calcium [Mass/Vol] 8.9 mg/dL Normal 8.5-10.1 [facility] Comment on above: Performed By: #### B MANAGER PAYROLL, BMP ####[facility] Ybcvsuehhq5339 [place] [address]Dr. Garima Pulliam Chloride [Moles/Vol] 101 mmol/L Normal 98-107 [facility] Comment on above: Performed By: #### B MANAGER PAYROLL, BMP ####[facility] Cyshlunvvn6[address] [place], [place] [address]Dr. Chapisrenu Heraclio CO2 [Moles/Vol] 30.7 mmol/L Normal 21.0-32.0 [facility] Comment on above: Performed By: #### B MANAGER PAYROLL, BMP ####[facility] Crfdrtoees01[address] [place], [place] [address]Dr. Garima Pulliam Creatinine [Mass/Vol] 0.82 mg/dL Normal 0.70-1.30 [facility] Comment on above: Performed By: #### B MANAGER PAYROLL, BMP ####[facility] Jzyvnvijig84[address] [place], [place] [address]Dr. Garima Pulliam EGFR-AF NIGERIAN >60 Normal >=60 [facility] Comment on above: Performed By: #### B MANAGER PAYROLL, BMP ####[facility] Ddoozkemlw8436[address] [place], [place] [address]Dr. Chapisrenu Heraclio EGFR-NON AF NIGERIAN >60 Normal >=60 [facility] Comment on above: Performed By: #### B MANAGER PAYROLL, BMP ####[facility] Axefpvntuy5[address] [place], [place] [address]Dr. Garima Pulliam Glucose [Mass/Vol] 339 mg/dL Critically high 74-106 [facility] Comment on above: Performed By: #### B MANAGER PAYROLL, BMP ####[facility] Imrdcvgbdi045[address] [place], [place] [address]Dr. Garima Pulliam Potassium [Moles/Vol] 3.6 mmol/L Normal 3.5-5.1 [facility] Comment on above: Performed By: #### B MANAGER PAYROLL, BMP ####[facility] Jibjiopwiu709[address] [place], [place] [address]Dr. Garima Pulliam Sodium [Moles/Vol] 135 mmol/L Critically low 136-145 [facility] Comment on above: Performed By: #### B MANAGER PAYROLL, BMP ####[facility] Pgwygeubgp1483[address] [place], [place] [address]Dr. Garima Pulliam Urea nitrogen [Mass/Vol] 11.0 mg/dL Normal 7.0-18.0 [facility] Comment on above: Performed By: #### B MANAGER PAYROLL, BMP ####[facility] Sqpkqwgulm2879[address] [place], [place] [address]Dr. Garima Pulliam Urea nitrogen/Creatinine [Mass ratio] 13.4 mg/mg Normal [facility] Comment on above: Performed By: #### B MANAGER PAYROLL, BMP ####[facility] Ezmylyrdfs8[address] [place], [place] [address]Dr. Garima Pulliam US VERONICA DOP LEG BILon 023 US VERONICA DOP LEG BENOIT Normal [facility] BNPon 03-18-2023 Natriuretic peptide B (Bld) [Mass/Vol] 226.0 pg/mL Normal <=900.0 [facility] Comment on above: Performed By: #### B MANAGER PAYROLL, BMP ####[facility] Gemrlsnkvg559[address] [place], [place] [address]Dr. Garima Pulliam CBC AUTO DIFFon 03-18-2023 BASO # 0.0 103/ul Normal 0.0-0.1 [facility] Comment on above: Performed By: #### C BC ####[facility] Bdxcvcwefb0038[address] [place], [place] [address]Dr. Garima Heraclio Basophils/100 WBC (Bld) 0.2 % Normal 0.2-2.0 [facility] Comment on above: Performed By: #### C BC ####[facility] Pjoumbqtni0986[address] [place], [place] [address]Dr. Garima Pulliam EO # 0.3 103/ul Normal 0.0-0.7 [facility] Comment on above: Performed By: #### C BC ####[facility] Lnfzybcnfh01[address] [place], [place] [address]Dr. Garima Heraclio Eosinophils/100 WBC (Bld) 2.5 % Normal 0.9-7.0 [facility] Comment on above: Performed By: #### C BC ####[facility] Imyoptcrlm4064[address] [place], [place] [address]Dr. Garima Heraclio Erythrocyte distribution width (RBC) [Ratio] 13.2 % Normal 11.0-15.0 [facility] Comment on above: Performed By: #### C BC ####[facility] Gbwhiixzcs1697 [place] [address]DrAdalberto Pulliam Hematocrit (Bld) [Volume fraction] 45.8 % Normal 42.0-54.0 [facility] Comment on above: Performed By: #### C BC ####[facility] Yfrcaypnvd9336 [place] [address]DrAdalberto Pulilam Hemoglobin (Bld) [Mass/Vol] 15.3 g/dL Normal 14.0-18.0 [facility] Comment on above: Performed By: #### C BC ####[facility] Telpkzxxba6219[address] [place], [place] [address]DrAdalberto Pulliam IG # 0.02 10e3/ul Normal 0.00-0.03 [facility] Comment on above: Performed By: #### C BC ####[facility] Nlgfycgbpr3[address] [place], [place] [address]DrAdalberto Pulliam IG % 0.2 % Normal 0.0-0.5 [facility] Comment on above: Performed By: #### C BC ####[facility] Klqrhncako025[address] [place], [place] [address]DrAdalberto Pulliam LYMPH # 1.8 103/ul Normal 1.2-3.8 [facility] Comment on above: Performed By: #### C BC ####[facility] Uxcvlrfpuz8787[address] [place], [place] [address]DrAdalberto Pulliam Lymphocytes/100 WBC (Bld) 18.3 % Critically low 20.5-60.0 [facility] Comment on above: Performed By: #### C BC ####[facility] Ipkvgbltco099[address] [place], [place] [address]DrAdalberto Pulliam MANUAL DIFF REQ NO [facility] Comment on above: Performed By: #### C BC ####[facility] Ffjrwrcrzc7113 [place] [address]DrAdalberto Pulliam MCH (RBC) [Entitic mass] 30.5 pg Normal 25.9-34.0 [facility] Comment on above: Performed By: #### C BC ####[facility] Ejsnrihgac1063 [place] [address]DrAdalberto Pulliam MCHC (RBC) [Mass/Vol] 33.4 g/dL Normal 29.9-35.2 [facility] Comment on above: Performed By: #### C BC ####[facility] Mzdinwpeob4547 [place] [address]DrAdalberto Pulliam MCV (RBC) [Entitic vol] 91.2 fL Normal 80.0-94.0 [facility] Comment on above: Performed By: #### C BC ####[facility] Rutchbuwtk554[address] [place], [place] [address]DrAdalberto Pulliam MONO # 0.8 103/ul Normal 0.3-0.8 [facility] Comment on above: Performed By: #### C BC ####[facility] Lepmxxrztm33[address] [place], [place] [address]DrAdalberto Pulliam Monocytes/100 WBC (Bld) 7.6 % Normal 1.7-12.0 [facility] Comment on above: Performed By: #### C BC ####[facility] Dwswscunbs3588[address] [place], [place] [address]DrAdalberto Pulliam NEUT # 7.0 103/ul Critically high 1.4-6.5 [facility] Comment on above: Performed By: #### C BC ####[facility] Fxjtjfojkj029[address] [place], [place] [address]DrAdalberto Pulliam Neutrophils/100 WBC (Bld) 71.2 % Normal 43.0-75.0 [facility] Comment on above: Performed By: #### C BC ####[facility] Roseiwmbft0[address] [place], [place] [address]DrAdalberto Pulliam Platelet mean volume (Bld) [Entitic vol] 8.9 fL Critically low 9.5-13.5 [facility] Comment on above: Performed By: #### C BC ####[facility] Wzmsjewdyr7199[address] [place], [place] [address]DrAdalberto Pulliam PLT 217 103/ul Normal 150-450 [facility] Comment on above: Performed By: #### C BC ####[facility] Pfqixxgnws6238 [place] [address]Dr. Garima Heraclio RBC 5.02 106/ul Normal 4.70-6.10 [facility] Comment on above: Performed By: #### C BC ####[facility] Zlsmayntzn[address] [place], [place] [address]Dr. Garima Pulliam WBC 9.8 103/ul Normal 4.0-11.0 [facility] Comment on above: Performed By: #### C BC ####[facility] Oibwmahwdr934[address] [place], [place] [address]Dr. Garima Heraclio CRPon 03-18-2023 CRP 0.1 mg/dL Normal <=1.0 [facility] Comment on above: Performed By: #### C RP ####[facility] Cwjwaijybd6325[address] [place], [place] [address]Dr. Garima Heraclio PROF CHEM 8 (BAS METB)on Anion gap [Moles/Vol] 10.4 mmol/L Normal [facility] Comment on above: Performed By: #### B MANAGER PAYROLL, BMP ####[facility] Zbfbtqdwvt35[address] [place], [place] [address]Dr. Garima Heraclio Calcium [Mass/Vol] 8.8 mg/dL Normal 8.5-10.1 [facility] Comment on above: Performed By: #### B MANAGER PAYROLL, BMP ####[facility] Wqurmnrcfp29[address] [place], [place] [address]Dr. Garima Heraclio Chloride [Moles/Vol] 97 mmol/L Critically low 98-107 [facility] Comment on above: Performed By: #### B MANAGER PAYROLL, BMP ####[facility] Waotfdvzib547[address] [place], [place] [address]Dr. Garima Pulliam CO2 [Moles/Vol] 31.2 mmol/L Normal 21.0-32.0 [facility] Comment on above: Performed By: #### B MANAGER PAYROLL, BMP ####[facility] Xerxolptlb516[address] [place], [place] [address]Dr. Garima Pulliam Creatinine [Mass/Vol] 0.91 mg/dL Normal 0.70-1.30 [facility] Comment on above: Performed By: #### B MANAGER PAYROLL, BMP ####[facility] Dhmiruyaxr5439 [place] [address]Dr. Garima Pulliam EGFR-AF NIGERIAN >60 Normal >=60 [facility] Comment on above: Performed By: #### B MANAGER PAYROLL, BMP ####[facility] Incxuozibt3222 [place] [id number]. Garima Pulliam EGFR-NON AF NIGERIAN >60 Normal >=60 [facility] Comment on above: Performed By: #### B MANAGER PAYROLL, BMP ####[facility] Ndktdgfgvg8908 [place] [address]Dr. Garima Pulliam Glucose [Mass/Vol] 315 mg/dL Critically high 74-106 [facility] Comment on above: Performed By: #### B MANAGER PAYROLL, BMP ####[facility] Vradgtcrpz9029 [place] [address]Dr. Garima Pulliam Potassium [Moles/Vol] 3.6 mmol/L Normal 3.5-5.1 [facility] Comment on above: Performed By: #### B MANAGER PAYROLL, BMP ####[facility] Vvwiafbvez4316 [place] [address]Dr. Garima Pulliam Sodium [Moles/Vol] 135 mmol/L Critically low 136-145 [facility] Comment on above: Performed By: #### B MANAGER PAYROLL, BMP ####[facility] Cyngmpxtfl3777 [place] [address]Dr. Garima Pulliam Urea nitrogen [Mass/Vol] 7.0 mg/dL Normal 7.0-18.0 [facility] Comment on above: Performed By: #### B MANAGER PAYROLL, BMP ####[facility] Tsqixoxrrl5872 [place] [address]Dr. Garima Pulliam Urea nitrogen/Creatinine [Mass ratio] 7.7 mg/mg Normal [facility] Comment on above: Performed By: #### B MANAGER PAYROLL, BMP ####[facility] Nkrpuiazgr1059 [place] [address]Dr. Garima Pulliam SED RATE WESTERGRENon 2022 SED RATE 8 mm/hr Normal <=20 [facility] Comment on above: Performed By: #### S EDR ####[facility] Hyzhjdroww84[address] [place], [place] [address]Dr. Garima Pulliam BNPon 03-16-2023 Natriuretic peptide B (Bld) [Mass/Vol] 241.0 pg/mL Normal <=900.0 [facility] Comment on above: Performed By: #### B MANAGER PAYROLL, BMP, HSTROPN ####[facility] Qivfatbeue39[address] [place], [place] [address]Dr. Garima Heraclio CBC AUTO DIFFon 03-16-2023 BASO # 0.0 103/ul Normal 0.0-0.1 [facility] Comment on above: Performed By: #### C BC ####[facility] Ixcdrfdblr03[address] [place], [place] [address]Dr. Chapisrenu Pulliam Basophils/100 WBC (Bld) 0.2 % Normal 0.2-2.0 [facility] Comment on above: Performed By: #### C BC ####[facility] Dmnqftvyik17[address] [place], [place] [address]Dr. Garima Pulliam EO # 0.2 103/ul Normal 0.0-0.7 [facility] Comment on above: Performed By: #### C BC ####[facility] Qinwvchlwj43[address] [place], [place] [address]Dr. Chapisrenu Pulliam Eosinophils/100 WBC (Bld) 2.7 % Normal 0.9-7.0 [facility] Comment on above: Performed By: #### C BC ####[facility] Kyxafeqerq14[address] [place], [place] [address]Dr. Garima Pulliam Erythrocyte distribution width (RBC) [Ratio] 13.1 % Normal 11.0-15.0 [facility] Comment on above: Performed By: #### C BC ####[facility] Yutgemswlp[address] [place], [place] [address]Dr. Garima Pulliam Hematocrit (Bld) [Volume fraction] 41.8 % Critically low 42.0-54.0 [facility] Comment on above: Performed By: #### C BC ####[facility] Bqwfiqtlfb6381 [place] [address]Dr. Garima Pulliam Hemoglobin (Bld) [Mass/Vol] 14.0 g/dL Normal 14.0-18.0 [facility] Comment on above: Performed By: #### C BC ####[facility] Yzskhltkyt[address] [place] [address]Dr. Garima Pulliam IG # 0.03 10e3/ul Normal 0.00-0.03 [facility] Comment on above: Performed By: #### C BC ####[facility] Jpvnzhrphq7[address] [place] [address]Dr. Garima Pulliam IG % 0.3 % Normal 0.0-0.5 [facility] Comment on above: Performed By: #### C BC ####[facility] Qvukwhrmiw[address] [place], [place] [address]Dr. Chapisrenu Pulliam LYMPH # 2.1 103/ul Normal 1.2-3.8 [facility] Comment on above: Performed By: #### C BC ####[facility] Znmfmsrbgy66[address] [place], [place] [address]Dr. Chapisrenu Pulliam Lymphocytes/100 WBC (Bld) 24.2 % Normal 20.5-60.0 [facility] Comment on above: Performed By: #### C BC ####[facility] Noinehngpw13[address] [place] [address]Dr. Garima Pulliam MANUAL DIFF REQ NO Normal [facility] Comment on above: Performed By: #### C BC ####[facility] Wfhoozeggk9[address] [place] [address]Dr. Garima Pulliam MCH (RBC) [Entitic mass] 30.2 pg Normal 25.9-34.0 [facility] Comment on above: Performed By: #### C BC ####[facility] Hcaxwjobkh23[address] [place] [address]Dr. Garima Pulliam MCHC (RBC) [Mass/Vol] 33.5 g/dL Normal 29.9-35.2 [facility] Comment on above: Performed By: #### C BC ####[facility] Gelgjoigwl8[address] [place] [phone]. Garima Pulliam MCV (RBC) [Entitic vol] 90.1 fL Normal 80.0-94.0 [facility] Comment on above: Performed By: #### C BC ####[facility] Anpzymuogi62[address] [place] [phone]. Garima Pulliam MONO # 0.6 103/ul Normal 0.3-0.8 [facility] Comment on above: Performed By: #### C BC ####[facility] Rregynmtzj5192 [place] [address]Dr. Garima Heraclio Monocytes/100 WBC (Bld) 7.4 % Normal 1.7-12.0 [facility] Comment on above: Performed By: #### C BC ####[facility] Bbqweswwzn4[address] [place], [place] [address]Dr. Garima Pulliam NEUT # 5.6 103/ul Normal 1.4-6.5 [facility] Comment on above: Performed By: #### C BC ####[facility] Jrlsftqtnl8021[address] [place], [place] [address]Dr. Garima Heraclio Neutrophils/100 WBC (Bld) 65.2 % Normal 43.0-75.0 [facility] Comment on above: Performed By: #### C BC ####[facility] Lwpgunlzam48[address] [place] [phone]. Garima Heraclio Platelet mean volume (Bld) [Entitic vol] 8.7 fL Critically low 9.5-13.5 [facility] Comment on above: Performed By: #### C BC ####[facility] Ihjutxayhh[address] [place], [place] [id number]. Garima Heraclio PLT 195 103/ul Normal 150-450 [facility] Comment on above: Performed By: #### C BC ####[facility] Swbrxvzews9764 [place] [phone]. Garima Pulliam RBC 4.64 106/ul Critically low 4.70-6.10 [facility] Comment on above: Performed By: #### C BC ####[facility] Zuyfhkocns6602 [place] [address]Dr. Garima Pulliam WBC 8.6 103/ul Normal 4.0-11.0 [facility] Comment on above: Performed By: #### C BC ####[facility] Ywtusugsto8585 [place] [address]Dr. Garima Pulliam PROF CHEM 8 (BAS METB)on Anion gap [Moles/Vol] 6.7 mmol/L Normal [facility] Comment on above: Performed By: #### B MANAGER PAYROLL, BMP, HSTROPN ####[facility] Nkhrljhtdm87[address] [place] [address]Dr. Garima Pulliam Calcium [Mass/Vol] 8.8 mg/dL Normal 8.5-10.1 [facility] Comment on above: Performed By: #### B MANAGER PAYROLL, BMP, HSTROPN ####[facility] Wdjbosgyii06[address] [place], [place] [address]Dr. Garima Pulliam Chloride [Moles/Vol] 106 mmol/L Normal 98-107 [facility] Comment on above: Performed By: #### B MANAGER PAYROLL, BMP, HSTROPN ####[facility] Xjragwpnha[address] [place], [place] [address]Dr. Garima Pulliam CO2 [Moles/Vol] 31.4 mmol/L Normal 21.0-32.0 [facility] Comment on above: Performed By: #### B MANAGER PAYROLL, BMP, HSTROPN ####[facility] Toqygdhold124[address] [place], [place] [address]Dr. Garima Pulliam Creatinine [Mass/Vol] 0.75 mg/dL Normal 0.70-1.30 [facility] Comment on above: Performed By: #### B MANAGER PAYROLL, BMP, HSTROPN ####[facility] Eoiugmuwkx35[address] [place] [address]Dr. Garima Pulliam EGFR-AF NIGERIAN >60 Normal >=60 [facility] Comment on above: Performed By: #### B MANAGER PAYROLL, BMP, HSTROPN ####[facility] Oyamtmedqx66[address] [place] [address]Dr. Garima Pulliam EGFR-NON AF NIGERIAN >60 Normal >=60 [facility] Comment on above: Performed By: #### B MANAGER PAYROLL, BMP, HSTROPN ####[facility] Edjwcyfakt1744 [place] [address]Dr. Garima Pulliam Glucose [Mass/Vol] 161 mg/dL Critically high 74-106 [facility] Comment on above: Performed By: #### B MANAGER PAYROLL, BMP, HSTROPN ####[facility] Ajorqelldv9858 [place] [address]Dr. Garima Pulliam Potassium [Moles/Vol] 4.1 mmol/L Normal 3.5-5.1 [facility] Comment on above: Performed By: #### B MANAGER PAYROLL, BMP, HSTROPN ####[facility] Dhihzfazag036[address] [place] [address]Dr. Garima Pulliam Sodium [Moles/Vol] 140 mmol/L Normal 136-145 [facility] Comment on above: Performed By: #### B MANAGER PAYROLL, BMP, HSTROPN ####[facility] Vfknppngxe8066 [place] [address]Dr. Garima Pulliam Urea nitrogen [Mass/Vol] 7.0 mg/dL Normal 7.0-18.0 [facility] Comment on above: Performed By: #### B MANAGER PAYROLL, BMP, HSTROPN ####[facility] Ewtmqjnatt9968 [place] [address]Dr. Garima Pulliam Urea nitrogen/Creatinine [Mass ratio] 9.3 mg/mg Normal [facility] Comment on above: Performed By: #### B MANAGER PAYROLL, BMP, HSTROPN ####[facility] Bnbfgrtqtf65[address] [place] [address]Dr. Garima Pulliam TROPONIN, HIGH SENSITIVITYon 03-16-2023 HSTROP 9.7 pg/mL Normal 4.0-76.1 [facility] Comment on above: Result Comment: CUT- OFF POINTS HAVE BEEN ESTABLISHED BASED ON THE FOURTH UNIVERSAL DEFINITIONS OF MYOCARDIALINFARCTION. THE UPPER REFERENCE LIMIT (URL) OF TROPONIN, DEFINED THE 99TH PERCENTILE OFcTnI DISTRIBUTION IN A REFERENCE POPULATION, HAS BEEN CONFIRMED THE DECISION THRESHOLDFOR NH DIAGNOSIS. Performed By: #### B MANAGER PAYROLL, BMP, HSTROPN ####[facility] Srmpzladuk[address] [place] [address]Dr. Garima Pulliam XR CHEST 1 Von 03-16-2023 XR CHEST 1 V Normal [facility] BNPon 03-06-2023 Natriuretic peptide B (Bld) [Mass/Vol] 111.0 pg/mL Normal <=900.0 [facility] Comment on above: Performed By: #### C MP, BNP, CK ####[facility] Ecmxlqbdtg4764 [place] [address]Dr. Chapisrenu Pulliam CBC AUTO DIFFon 03-06-2023 BASO # 0.0 103/ul Normal 0.0-0.1 [facility] Comment on above: Performed By: #### C BC ####[facility] Vbjgsdzryp8[address] [place], [place] [address]Dr. Garima Pulliam Basophils/100 WBC (Bld) 0.2 % Normal 0.2-2.0 [facility] Comment on above: Performed By: #### C BC ####[facility] Zrdybptram04[address] [place], [place] [address]Dr. Garima Pulliam EO # 0.3 103/ul Normal 0.0-0.7 [facility] Comment on above: Performed By: #### C BC ####[facility] Oujgsemvyw[address] [place], [place] [address]Dr. Garima Pulliam Eosinophils/100 WBC (Bld) 3.5 % Normal 0.9-7.0 [facility] Comment on above: Performed By: #### C BC ####[facility] Rzztayqova47[address] [place], [place] [address]Dr. Garima Pulliam Erythrocyte distribution width (RBC) [Ratio] 13.3 % Normal 11.0-15.0 [facility] Comment on above: Performed By: #### C BC ####[facility] Afdhnswwdx85[address] [place], [place] [address]Dr. Garima Pulliam Hematocrit (Bld) [Volume fraction] 43.7 % Normal 42.0-54.0 [facility] Comment on above: Performed By: #### C BC ####[facility] Tlwqedttza74[address] [place] [address]Dr. Garima Pulliam Hemoglobin (Bld) [Mass/Vol] 14.7 g/dL Normal 14.0-18.0 [facility] Comment on above: Performed By: #### C BC ####[facility] Jeyxkerkvg7062 [place] [address]Dr. Chapisrenu Heraclio IG # 0.03 10e3/ul Normal 0.00-0.03 [facility] Comment on above: Performed By: #### C BC ####[facility] Wvbqbirper[address] [place], [place] [address]Dr. Garima Pulliam IG % 0.4 % Normal 0.0-0.5 [facility] Comment on above: Performed By: #### C BC ####[facility] Qzqiseatld[address] [place], [place] [address]Dr. Garima Pulliam LYMPH # 2.0 103/ul Normal 1.2-3.8 [facility] Comment on above: Performed By: #### C BC ####[facility] Ancpyscrxg74[address] [place], [place] [address]DrAdalberto Pulliam Lymphocytes/100 WBC (Bld) 23.7 % Normal 20.5-60.0 [facility] Comment on above: Performed By: #### C BC ####[facility] Wkwuqvknky58[address] [place] [address]Dr. Garima Pulliam MANUAL DIFF REQ NO [facility] Comment on above: Performed By: #### C BC ####[facility] Rijinkxmcj5[address] [place] [phone] Pulliam MCH (RBC) [Entitic mass] 30.1 pg Normal 25.9-34.0 [facility] Comment on above: Performed By: #### C BC ####[facility] Kixmgmtbnd9816 [place] [phone]. Garima Pulliam MCHC (RBC) [Mass/Vol] 33.6 g/dL Normal 29.9-35.2 [facility] Comment on above: Performed By: #### C BC ####[facility] Zyxjukmgrh95[address] [place] [address]Dr. Garima Heraclio MCV (RBC) [Entitic vol] 89.4 fL Normal 80.0-94.0 [facility] Comment on above: Performed By: #### C BC ####[facility] Chmewumyom[address] [place] [address]Dr. Garima Pulliam MONO # 0.8 103/ul Normal 0.3-0.8 [facility] Comment on above: Performed By: #### C BC ####[facility] Xrcdomtdrr4266 [place] [address]Dr. Garima Pulliam Monocytes/100 WBC (Bld) 9.0 % Normal 1.7-12.0 [facility] Comment on above: Performed By: #### C BC ####[facility] Dovygfhbld[address] [place], [place] [address]Dr. Garima Pulliam NEUT # 5.4 103/ul Normal 1.4-6.5 [facility] Comment on above: Performed By: #### C BC ####[facility] Ufrurzpawv[address] [place], [place] [address]Dr. Garima Pulliam Neutrophils/100 WBC (Bld) 63.2 % Normal 43.0-75.0 [facility] Comment on above: Performed By: #### C BC ####[facility] Rpaczfyisz62[address] [place], [place] [address]Dr. Garima Pulliam Platelet mean volume (Bld) [Entitic vol] 9.0 fL Critically low 9.5-13.5 [facility] Comment on above: Performed By: #### C BC ####[facility] Eytgrskuko[address] [place], [place] [address]Dr. Garima Pulliam PLT 218 103/ul Normal 150-450 [facility] Comment on above: Performed By: #### C BC ####[facility] Xryhdxgpcg6412 [place] [phone]. Garima Pulliam RBC 4.89 106/ul Normal 4.70-6.10 [facility] Comment on above: Performed By: #### C BC ####[facility] Bcecdalgfs6907 [place] [address]Dr. Garima Pulliam WBC 8.5 103/ul Normal 4.0-11.0 [facility] Comment on above: Performed By: #### C BC ####[facility] Sggzdcbejn[address] [place] [address]Dr. Garima Pulliam CPKon 03-06-2023 CK [Catalytic activity/Vol] 191 U/L Normal 39-308 [facility] Comment on above: Performed By: #### C MP, BNP, CK ####[facility] Wiuqbauxlc36[address] [place] [address]Dr. Garima Pulliam PROF 14(COMP METB)on 023 Albumin [Mass/Vol] 3.6 g/dL Normal 3.4-5.0 [facility] Comment on above: Performed By: #### C MP, BNP, CK ####[facility] Rutyprzrrt9407 [place] [address]Dr. Garima Pulliam Albumin/Globulin [Mass ratio] 1.2 {ratio} Normal [facility] Comment on above: Performed By: #### C MP, BNP, CK ####[facility] Tlxdrelbmi6583 [place] [address]Dr. Garima Pulliam ALP [Catalytic activity/Vol] 91 U/L Normal 46-116 [facility] Comment on above: Performed By: #### C MP, BNP, CK ####[facility] Dztdcmncqo0542 [place] [address]Dr. Garima Pulliam ALT [Catalytic activity/Vol] 33 U/L Normal 16-63 [facility] Comment on above: Performed By: #### C MP, BNP, CK ####[facility] Jtknrktxgz6242 [place] [address]Dr. Garima Pulliam Anion gap [Moles/Vol] 10.3 mmol/L Normal [facility] Comment on above: Performed By: #### C MP, BNP, CK ####[facility] Kaftnkucbp6481 [place] [address]Dr. Garima Pulliam AST [Catalytic activity/Vol] 17 U/L Normal 15-37 [facility] Comment on above: Performed By: #### C MP, BNP, CK ####[facility] Pmkttlcfda9905 [place] [address]Dr. Garima Pulliam Bilirubin [Mass/Vol] 0.4 mg/dL Normal 0.2-1.0 [facility] Comment on above: Performed By: #### C MP, BNP, CK ####[facility] Byxrtgujmq[address] [place] [address]Dr. Garima Pulliam Calcium [Mass/Vol] 9.1 mg/dL Normal 8.5-10.1 [facility] Comment on above: Performed By: #### C MP, BNP, CK ####[facility] Aoqgkbknvv7549 [place] [address]Dr. Garima Pulliam Chloride [Moles/Vol] 102 mmol/L Normal 98-107 [facility] Comment on above: Performed By: #### C MP, BNP, CK ####[facility] Zxoatuqbkd7613 [place] [address]Dr. Garima Pulliam CO2 [Moles/Vol] 29.7 mmol/L Normal 21.0-32.0 [facility] Comment on above: Performed By: #### C MP, BNP, CK ####[facility] Dzlthfvimr2022 [place] [address]Dr. Garima Pulliam Creatinine [Mass/Vol] 0.79 mg/dL Normal 0.70-1.30 [facility] Comment on above: Performed By: #### C MP, BNP, CK ####[facility] Iydysjpxyl1083 [place] [address]Dr. Garima Pulliam EGFR-AF NIGERIAN >60 Normal >=60 [facility] Comment on above: Performed By: #### C MP, BNP, CK ####[facility] Yrkvxzcltw1430 [place] [address]Dr. Garima Pulliam EGFR-NON AF NIGERIAN >60 Normal >=60 [facility] Comment on above: Performed By: #### C MP, BNP, CK ####[facility] Fxfnnnfjlj3396 [place] [address]Dr. Garima Pulliam Globulin (S) [Mass/Vol] 3.0 g/dL Normal [facility] Comment on above: Performed By: #### C MP, BNP, CK ####[facility] Wydsicnrdx1090 [place] [address]Dr. Garima Pulliam Glucose [Mass/Vol] 202 mg/dL Critically high 74-106 [facility] Comment on above: Performed By: #### C MP, BNP, CK ####[facility] Uulhrasigo9598 [place] [address]Dr. Garima Pulliam Potassium [Moles/Vol] 4.0 mmol/L Normal 3.5-5.1 [facility] Comment on above: Performed By: #### C MP, BNP, CK ####[facility] Kvkwbvccmb6633 [place] [address]Dr. Garima Pulliam Protein [Mass/Vol] 6.6 g/dL Normal 6.4-8.2 [facility] Comment on above: Performed By: #### C MP, BNP, CK ####[facility] Jharwgfirx[address] [place], [place] [address]Dr. Garima Pulliam Sodium [Moles/Vol] 138 mmol/L Normal 136-145 [facility] Comment on above: Performed By: #### C MP, BNP, CK ####[facility] Dqvwnihmhc[address] [place], [place] [address]Dr. Garima Pulliam Urea nitrogen [Mass/Vol] 10.0 mg/dL Normal 7.0-18.0 [facility] Comment on above: Performed By: #### C MP, BNP, CK ####[facility] Zofrzqkwfj0834 [place] [address]Dr. Garima Pulliam Urea nitrogen/Creatinine [Mass ratio] 12.7 mg/mg Normal [facility] Comment on above: Performed By: #### C MP, BNP, CK ####[facility] Ftooqmwopm0622 [place] [address]Dr. Garima Pulliam US VERONICA DOP LEG BILon 023 US VERONICA DOP LEG BENOIT Normal [facility] CBC AUTO DIFFon 01-13-2023 BASO # 0.0 103/ul Normal 0.0-0.1 [facility] Comment on above: Performed By: #### C BC ####[facility] Tncdddnqrf3492 [place] [phone]. Chapisrenu Pulliam Basophils/100 WBC (Bld) 0.0 % Critically low 0.2-2.0 [facility] Comment on above: Performed By: #### C BC ####[facility] Knqkujsdko4170 [place] [address]Dr. Garima Pulliam EO # 0.0 103/ul Normal 0.0-0.7 [facility] Comment on above: Performed By: #### C BC ####[facility] Buzgugjpwn[address] [place], [place] [address]Dr. Garima Pulliam Eosinophils/100 WBC (Bld) 0.0 % Critically low 0.9-7.0 [facility] Comment on above: Performed By: #### C BC ####[facility] Uzzmyynfpx9277 [place] [address]Dr. Garima Pulliam Erythrocyte distribution width (RBC) [Ratio] 13.2 % Normal 11.0-15.0 [facility] Comment on above: Performed By: #### C BC ####[facility] Qkvjdbiqrs44[address] [place], [place] [address]Dr. Garima Pulliam Hematocrit (Bld) [Volume fraction] 46.7 % Normal 42.0-54.0 [facility] Comment on above: Performed By: #### C BC ####[facility] Iikzgofqdh10[address] [place], [place] [address]Dr. Garima Pulliam Hemoglobin (Bld) [Mass/Vol] 15.6 g/dL Normal 14.0-18.0 [facility] Comment on above: Performed By: #### C BC ####[facility] Rsbfiehkqs80[address] [place], [place] [address]Dr. Garima Pulliam IG # 0.01 10e3/ul Normal 0.00-0.03 [facility] Comment on above: Performed By: #### C BC ####[facility] Vsujutzalp1320 [place] [phone]. Garima Pulliam IG % 0.2 % Normal 0.0-0.5 [facility] Comment on above: Performed By: #### C BC ####[facility] Nlbqgdgpks8250 [place] [phone]. Garima Pulliam LYMPH # 0.8 103/ul Critically low 1.2-3.8 [facility] Comment on above: Performed By: #### C BC ####[facility] Hgdwxvudzp1156 [place] [phone]. Garima Pulliam Lymphocytes/100 WBC (Bld) 12.7 % Critically low 20.5-60.0 [facility] Comment on above: Performed By: #### C BC ####[facility] Rdnbqcrtxa5485 [place] [address]Dr. Garima Pulliam MANUAL DIFF REQ NO [facility] Comment on above: Performed By: #### C BC ####[facility] Vjrlikjqae7665 [place] [phone]. Garima Pulliam MCH (RBC) [Entitic mass] 30.2 pg Normal 25.9-34.0 [facility] Comment on above: Performed By: #### C BC ####[facility] Irhnmixvqn7367 [place] [phone]. Garima Pulliam MCHC (RBC) [Mass/Vol] 33.4 g/dL Normal 29.9-35.2 [facility] Comment on above: Performed By: #### C BC ####[facility] Ljpmzjcdjw0636 [place] [phone]. Garima Pulliam MCV (RBC) [Entitic vol] 90.3 fL Normal 80.0-94.0 [facility] Comment on above: Performed By: #### C BC ####[facility] Tzyclusmir3409 [place] [phone]. Garima Heraclio MONO # 0.1 103/ul Critically low 0.3-0.8 [facility] Comment on above: Performed By: #### C BC ####[facility] Guekpymuyg6132 [place] [phone]. Garima Pulliam Monocytes/100 WBC (Bld) 0.9 % Critically low 1.7-12.0 [facility] Comment on above: Performed By: #### C BC ####[facility] Eucnzcgami4360 [place] [phone]. Garima Pulliam NEUT # 5.6 103/ul Normal 1.4-6.5 [facility] Comment on above: Performed By: #### C BC ####[facility] Cmnbrnevkw7808 [place] [phone]. Garima Pulliam Neutrophils/100 WBC (Bld) 86.2 % Critically high 43.0-75.0 [facility] Comment on above: Performed By: #### C BC ####[facility] Tmeitxgzjv5066 [place] [address]Dr. Garima Pulliam Platelet mean volume (Bld) [Entitic vol] 9.1 fL Critically low 9.5-13.5 [facility] Comment on above: Performed By: #### C BC ####[facility] Ctqitgectl28[address] [place], [place] [address]Dr. Garima Pulliam PLT 169 103/ul Normal 150-450 [facility] Comment on above: Performed By: #### C BC ####[facility] Yvbgwwvdsh12[address] [place], [place] [address]Dr. Garima Pulliam RBC 5.17 106/ul Normal 4.70-6.10 [facility] Comment on above: Performed By: #### C BC ####[facility] Uuntvyrhci[address] [place], [place] [id number]. Garima Pulliam WBC 6.5 103/ul Normal 4.0-11.0 [facility] Comment on above: Performed By: #### C BC ####[facility] Owtilxbdvz6863[address] [place], [place] [address]Dr. Garima Pulliam D-DIMERon 01-13-2023 D-DIMER 0.41 mg/L FEU Normal <=0.59 [facility] Comment on above: Performed By: #### D DIM ####[facility] Khrmabbavc2654 [place] [address]Dr. Garima Pulliam D-DIMER COMMENTS SEE BELOW Normal [facility] Comment on above: Result Comment: Incr eases [...] By: #### D DIM ####[facility] Fphdowyjqr[address] [place], [place] [address]Dr. Garima Pulliam PROF 14(COMP METB)on 023 Albumin [Mass/Vol] 3.4 g/dL Normal 3.4-5.0 [facility] Comment on above: Performed By: #### C MP ####[facility] Wpxkprgsan39[address] [place], [place] [address]Dr. Garima Pulliam Albumin/Globulin [Mass ratio] 1.3 {ratio} Normal [facility] Comment on above: Performed By: #### C MP ####[facility] Xvkviqdyer3[address] [place], [place] [address]Dr. Garima Pulliam ALP [Catalytic activity/Vol] 83 U/L Normal 46-116 [facility] Comment on above: Performed By: #### C MP ####[facility] Mxxocuekdh17[address] [place], [place] [address]Dr. Garima Pulliam ALT [Catalytic activity/Vol] 25 U/L Normal 16-63 [facility] Comment on above: Performed By: #### C MP ####[facility] Lhzrbvnrsy4279 [place] [address]Dr. Garima Pulliam Anion gap [Moles/Vol] 14.5 mmol/L Normal [facility] Comment on above: Performed By: #### C MP ####[facility] Pqnsexyfmc399[address] [place], [place] [address]Dr. Garima Pulliam AST [Catalytic activity/Vol] 19 U/L Normal 15-37 [facility] Comment on above: Performed By: #### C MP ####[facility] Xvufexbryn[address] [place], [place] [address]Dr. Garima Pulliam Bilirubin [Mass/Vol] 0.4 mg/dL Normal 0.2-1.0 [facility] Comment on above: Performed By: #### C MP ####[facility] Lenokdswif39[address] [place], [place] [address]Dr. Garima Pulliam Calcium [Mass/Vol] 8.7 mg/dL Normal 8.5-10.1 [facility] Comment on above: Performed By: #### C MP ####[facility] Codlhqcvxk3[address] [place], [place] [address]Dr. Garima Pulliam Chloride [Moles/Vol] 104 mmol/L Normal 98-107 [facility] Comment on above: Performed By: #### C MP ####[facility] Xzwtnjcpnk[address] [place], [place] [address]Dr. Garima Pulliam CO2 [Moles/Vol] 24.5 mmol/L Normal 21.0-32.0 [facility] Comment on above: Performed By: #### C MP ####[facility] Ozpvaymxqo9[address] [place], [place] [address]Dr. Garima Pulliam Creatinine [Mass/Vol] 0.70 mg/dL Normal 0.70-1.30 [facility] Comment on above: Performed By: #### C MP ####[facility] Twikxvdtes46[address] [place], [place] [address]Dr. Garima Heraclio EGFR-AF NIGERIAN >60 Normal >=60 [facility] Comment on above: Performed By: #### C MP ####[facility] Eoiqygjhjd[address] [place], [place] [address]Dr. Chapisrenu Heraclio EGFR-NON AF NIGERIAN >60 Normal >=60 [facility] Comment on above: Performed By: #### C MP ####[facility] Kyuhtpdkwa[address] [place], [place] [address]Dr. Chapisrenu Pluliam Globulin (S) [Mass/Vol] 2.6 g/dL Normal [facility] Comment on above: Performed By: #### C MP ####[facility] Sungxjrbrj37[address] [place] [address]Dr. Garima Pulliam Glucose [Mass/Vol] 196 mg/dL Critically high 74-106 [facility] Comment on above: Performed By: #### C MP ####[facility] Mdekvcpqbd7275 [place] [address]Dr. Garima Pulliam Potassium [Moles/Vol] 4.0 mmol/L Normal 3.5-5.1 [facility] Comment on above: Performed By: #### C MP ####[facility] Cxwkvjwxmm9463 [place] [address]Dr. Garima Pulliam Protein [Mass/Vol] 6.0 g/dL Critically low 6.4-8.2 [facility] Comment on above: Performed By: #### C MP ####[facility] Lezjfhanwu8[address] [place], [place] [address]Dr. Garima Pulliam Sodium [Moles/Vol] 139 mmol/L Normal 136-145 [facility] Comment on above: Performed By: #### C MP ####[facility] Wodlypqlzw7[address] [place], [place] [address]Dr. Garima Pulliam Urea nitrogen [Mass/Vol] 7.0 mg/dL Normal 7.0-18.0 [facility] Comment on above: Performed By: #### C MP ####[facility] Lkwjiehkdf[address] [place], [place] [address]Dr. Garima Heraclio Urea nitrogen/Creatinine [Mass ratio] 10.0 mg/mg Normal [facility] Comment on above: Performed By: #### C MP ####[facility] Cszdczmdhg6[address] [place], [place] [address]Dr. Garima Heraclio BNPon 01-12-2023 Natriuretic peptide B (Bld) [Mass/Vol] 141.0 pg/mL Normal <=900.0 [facility] Comment on above: Performed By: #### C MP, BNP, HSTROPN ####[facility] Ixtkaregei66[address] [place], [place] [address]Dr. Garima Heraclio CBC AUTO DIFFon 01-12-2023 BASO # 0.0 103/ul Normal 0.0-0.1 [facility] Comment on above: Performed By: #### C BC ####[facility] Xevqjblsfp15[address] [place] [phone]. Garima Heraclio Basophils/100 WBC (Bld) 0.2 % Normal 0.2-2.0 [facility] Comment on above: Performed By: #### C BC ####[facility] Pmlunwyfuo6772 [place] [address]Dr. Garima Heraclio EO # 0.2 103/ul Normal 0.0-0.7 [facility] Comment on above: Performed By: #### C BC ####[facility] Psnyyoqurd7484 [place] [address]Dr. Garima Heraclio Eosinophils/100 WBC (Bld) 2.7 % Normal 0.9-7.0 [facility] Comment on above: Performed By: #### C BC ####[facility] Vnulvupsdn[address] [place], [place] [address]Dr. Garima Pulliam Erythrocyte distribution width (RBC) [Ratio] 13.3 % Normal 11.0-15.0 [facility] Comment on above: Performed By: #### C BC ####[facility] Gsufpnepia236[address] [place], [place] [address]Dr. Garima Pulliam Hematocrit (Bld) [Volume fraction] 42.3 % Normal 42.0-54.0 [facility] Comment on above: Performed By: #### C BC ####[facility] Yvyjprmvnf[address] [place], [place] [address]Dr. Garima Pulliam Hemoglobin (Bld) [Mass/Vol] 14.3 g/dL Normal 14.0-18.0 [facility] Comment on above: Performed By: #### C BC ####[facility] Cddtnlgjrg42[address] [place], [place] [address]Dr. Garima Pulliam IG # 0.02 10e3/ul Normal 0.00-0.03 [facility] Comment on above: Performed By: #### C BC ####[facility] Oljmimpawv0634 [place] [phone]. Garima Pulliam IG % 0.2 % Normal 0.0-0.5 [facility] Comment on above: Performed By: #### C BC ####[facility] Vbomrotuki2076 [place] [phone]. Garima Pulliam LYMPH # 2.6 103/ul Normal 1.2-3.8 [facility] Comment on above: Performed By: #### C BC ####[facility] Hxveigiery5796 [place] [phone]. Garima Heraclio Lymphocytes/100 WBC (Bld) 29.6 % Normal 20.5-60.0 [facility] Comment on above: Performed By: #### C BC ####[facility] Xfecqcfddu3878 [place] [address]Dr. Garima Heraclio MANUAL DIFF REQ NO Normal [facility] Comment on above: Performed By: #### C BC ####[facility] Jsmkiykpzh72[address] [place] [phone]. Garima Pulliam MCH (RBC) [Entitic mass] 30.2 pg Normal 25.9-34.0 [facility] Comment on above: Performed By: #### C BC ####[facility] Vlrirrilqz3732 [place] [address]Dr. Garima Pulliam MCHC (RBC) [Mass/Vol] 33.8 g/dL Normal 29.9-35.2 [facility] Comment on above: Performed By: #### C BC ####[facility] Zcfxzujyro1851 [place] [phone]. Garima Pulliam MCV (RBC) [Entitic vol] 89.2 fL Normal 80.0-94.0 [facility] Comment on above: Performed By: #### C BC ####[facility] Yupeshbeoq[address] [place], [place] [address]Dr. Chapisrenu Pulliam MONO # 0.7 103/ul Normal 0.3-0.8 [facility] Comment on above: Performed By: #### C BC ####[facility] Mqqnfeywmk85[address] [place] [phone]. Garima Pulliam Monocytes/100 WBC (Bld) 8.3 % Normal 1.7-12.0 [facility] Comment on above: Performed By: #### C BC ####[facility] Thmoaqeneu5958 [place] [phone]. Garima Pulliam NEUT # 5.1 103/ul Normal 1.4-6.5 [facility] Comment on above: Performed By: #### C BC ####[facility] Ibbfgkdmqa4426 [place] [phone]. Garima Pulliam Neutrophils/100 WBC (Bld) 59.0 % Normal 43.0-75.0 [facility] Comment on above: Performed By: #### C BC ####[facility] Ddrgpumfjt3332 [place] [address]Dr. Garima Pulliam Platelet mean volume (Bld) [Entitic vol] 8.7 fL Critically low 9.5-13.5 [facility] Comment on above: Performed By: #### C BC ####[facility] Sqvlaescfz8589 [place] [address]Dr. Garima Pulliam PLT 182 103/ul Normal 150-450 [facility] Comment on above: Performed By: #### C BC ####[facility] Njoxblpayc0961 [place] [phone]. Garima Pulliam RBC 4.74 106/ul Normal 4.70-6.10 [facility] Comment on above: Performed By: #### C BC ####[facility] Vvbwsjijlv[address] [place], [place] [id number]. Garima Pulliam WBC 8.7 103/ul Normal 4.0-11.0 [facility] Comment on above: Performed By: #### C BC ####[facility] Vidnnprcdb4[address] [place], [place] [address]Dr. Garima Pulliam Covid-19 PCR (CVDTB)on 12-25 SARS-CoV-2 [...] for this test is supported by the Supply Chain Buyer of Health and Human Service's declaration that [...] By: #### C VDTBH ####[facility] Cbuytnzcys87[address] [place] [address]Dr. Garima Pulliam PROF 14(COMP METB)on 023 Albumin [Mass/Vol] 3.6 g/dL Normal 3.4-5.0 [facility] Comment on above: Performed By: #### C MP, BNP, HSTROPN ####[facility] Ljlgnjypyf6[address] [place] [address]Dr. Garima Pulliam Albumin/Globulin [Mass ratio] 1.5 {ratio} Normal [facility] Comment on above: Performed By: #### C MP, BNP, HSTROPN ####[facility] Uypzmiezmx44[address] [place] [address]Dr. Garima Pulliam ALP [Catalytic activity/Vol] 79 U/L Normal 46-116 [facility] Comment on above: Performed By: #### C MP, BNP, HSTROPN ####[facility] Uiwerecwij8326 [place] [address]Dr. Garima Pulliam ALT [Catalytic activity/Vol] 27 U/L Normal 16-63 [facility] Comment on above: Performed By: #### C MP, BNP, HSTROPN ####[facility] Xdxrvdvmoo8528 [place] [address]Dr. Garima Pulliam Anion gap [Moles/Vol] 11.7 mmol/L Normal [facility] Comment on above: Performed By: #### C MP, BNP, HSTROPN ####[facility] Zjnvqqpago3795 [place] [address]Dr. Garima Pulliam AST [Catalytic activity/Vol] 21 U/L Normal 15-37 [facility] Comment on above: Performed By: #### C MP, BNP, HSTROPN ####[facility] Drertyibps6578 [place] [address]Dr. Garima Pulliam Bilirubin [Mass/Vol] 0.3 mg/dL Normal 0.2-1.0 [facility] Comment on above: Performed By: #### C MP, BNP, HSTROPN ####[facility] Izibatrlkv2437 [place] [address]Dr. Garima Pulliam Calcium [Mass/Vol] 8.9 mg/dL Normal 8.5-10.1 [facility] Comment on above: Performed By: #### C MP, BNP, HSTROPN ####[facility] Uvvkvhlkbq3831 [place] [address]Dr. Garima Pulliam Chloride [Moles/Vol] 107 mmol/L Normal 98-107 [facility] Comment on above: Performed By: #### C MP, BNP, HSTROPN ####[facility] Fpgxgdftkl8138 [place] [address]Dr. Garima Pulliam CO2 [Moles/Vol] 26.0 mmol/L Normal 21.0-32.0 [facility] Comment on above: Performed By: #### C MP, BNP, HSTROPN ####[facility] Riragevyqr1680 [place] [address]Dr. Garima Pulliam Creatinine [Mass/Vol] 0.65 mg/dL Critically low 0.70-1.30 [facility] Comment on above: Performed By: #### C MP, BNP, HSTROPN ####[facility] Lyapijdczj5[address] [place] [address]Dr. Yilan Pulliam EGFR-AF NIGERIAN >60 Normal >=60 [facility] Comment on above: Performed By: #### C MP, BNP, HSTROPN ####[facility] Xbiwjkjhqa1608 [place] [address]Dr. Garima Pulliam EGFR-NON AF NIGERIAN >60 Normal >=60 [facility] Comment on above: Performed By: #### C MP, BNP, HSTROPN ####[facility] Zrqeazewuj3739 [place] [address]Dr. Garima Pulliam Globulin (S) [Mass/Vol] 2.4 g/dL Normal [facility] Comment on above: Performed By: #### C MP, BNP, HSTROPN ####[facility] F[address]ogifdaii[address] [place], [place] [address]Dr. Garima Pulliam Glucose [Mass/Vol] 85 mg/dL Normal 74-106 [facility] Comment on above: Performed By: #### C MP, BNP, HSTROPN ####[facility] Gcifjeibqu6622 [place] [address]Dr. Garima Pulliam Potassium [Moles/Vol] 3.7 mmol/L Normal 3.5-5.1 [facility] Comment on above: Performed By: #### C MP, BNP, HSTROPN ####[facility] Ealvddgjzc4263 [place] [address]Dr. Garima Pulliam Protein [Mass/Vol] 6.0 g/dL Critically low 6.4-8.2 [facility] Comment on above: Performed By: #### C MP, BNP, HSTROPN ####[facility] Uznhtjonrg3927 [place] [address]Dr. Garima Pulliam Sodium [Moles/Vol] 141 mmol/L Normal 136-145 [facility] Comment on above: Performed By: #### C MP, BNP, HSTROPN ####[facility] Xvtdibquni8868 [place] [address]Dr. Garima Pulliam Urea nitrogen [Mass/Vol] 5.0 mg/dL Critically low 7.0-18.0 [facility] Comment on above: Performed By: #### C MP, BNP, HSTROPN ####[facility] Enpoytxhmc3789 [place] [address]Dr. Garima Pulliam Urea nitrogen/Creatinine [Mass ratio] 7.7 mg/mg Normal [facility] Comment on above: Performed By: #### C MP, BNP, HSTROPN ####[facility] Wvvcifocfj5234 [place] [address]Dr. Garima Pulliam PROTIMEon 01-12-2023 INR Coag (PPP) [Relative time] 1.16 {INR} Normal [facility] Comment on above: Performed By: #### P TT, PT ####[facility] Myogmsoeqi01[address] [place] [address]Dr. Garima Pulliam INR GUIDELINES SEE BELOW Normal [facility] Comment on above: Result Comment: WESLEY RED INR: 2.0 - 3.0 CONDITIONS NOT LISTED BELOW 2.5 - 3.5 FOR PROSTHETIC HEART VALVE REPLACEMENT 2.5 - 3.5 RECURRENT THROMBOSIS Performed By: #### P TT, PT ####[facility] L[address]qbvxdpt[address] [place], [place] [address]Dr. Garima Pulliam PT Coag (PPP) [Time] 12.2 s Critically high 9.0-11.6 [facility] Comment on above: Performed By: #### P TT, PT ####[facility] Xargkvvjjb9456 [place] [address]Dr. Garima Pulliam PTTon 01-12-2023 aPTT Coag (Bld) [Time] 29.1 s Normal 22.3-36.2 [facility] Comment on above: Performed By: #### P TT, PT ####[facility] Qpzviojgvz[address] [place], [place] [address]Dr. Garima Pulliam TROPONIN, HIGH SENSITIVITYon 01-12-2023 HSTROP [...] [place] DIAGNOSIS. Performed By: #### H STROPN ####[facility] Vpgufygacu8339 [place] [address]Dr. Garima Pulliam HSTROP 9.2 pg/mL Normal 4.0-76.1 [facility] Comment on above: Result Comment: CUT- OFF POINTS HAVE BEEN ESTABLISHED BASED ON THE FOURTH UNIVERSAL DEFINITIONS OF MYOCARDIALINFARCTION. THE UPPER REFERENCE LIMIT (URL) OF TROPONIN, DEFINED THE 99TH PERCENTILE OFcTnI DISTRIBUTION IN A REFERENCE POPULATION, HAS BEEN CONFIRMED THE DECISION THRESHOLDFOR [place] DIAGNOSIS. Performed By: #### C MP, BNP, HSTROPN ####[facility] Opzbukpuyt6354 [place] [address]Dr. Garima Pulliam XR CHEST 1 Von 01-12-2023 XR CHEST 1 V Normal [facility] XR CHEST 1 Von 01-01-2023 XR CHEST 1 V Normal [facility] CARDIAC NASH 3-6on 3 CK [Catalytic activity/Vol] 196 U/L Normal 39-308 [facility] Comment on above: Performed By: #### C MREP ####[facility] Zoifbukfnj2531 [place] [address]Dr. Garima Pulliam CK.MB [Mass/Vol] 7.41 ng/mL Critically high <=3.60 [facility] Comment on above: Performed By: #### C MREP ####[facility] Mdkntjnwnh4012 [place] [address]Dr. Garima Pulliam HSTROP 10.3 pg/mL Normal 4.0-76.1 [facility] Comment on above: Result Comment: CUT- OFF POINTS HAVE BEEN ESTABLISHED BASED ON THE FOURTH UNIVERSAL DEFINITIONS OF MYOCARDIALINFARCTION. THE UPPER REFERENCE LIMIT (URL) OF TROPONIN, DEFINED THE 99TH PERCENTILE OFcTnI DISTRIBUTION IN A REFERENCE POPULATION, HAS BEEN CONFIRMED THE DECISION THRESHOLDFOR [place] DIAGNOSIS. Performed By: #### C MREP ####[facility] Zximhorxca3577 [place] [phone]. Garima Pulliam XR CHEST 1 Von 12-26-2022 XR CHEST 1 V Normal [facility] BNPon 12-25-2022 Natriuretic peptide B (Bld) [Mass/Vol] 98.0 pg/mL Normal <=900.0 [facility] Comment on above: Performed By: #### B MARVIN FRENCH CMADM ####[facility] Qrczkqcfog2301 [place] [address]Dr. Garima Pulliam CARDIAC NASH ADMITon 023 CK [Catalytic activity/Vol] 208 U/L Normal 39-308 [facility] Comment on above: Performed By: #### B MARVIN FRENCH CMADM ####[facility] Opwafnrkoo7248 [place] [address]Dr. Garima Pulliam CK.MB [Mass/Vol] 7.63 ng/mL Critically high <=3.60 [facility] Comment on above: Performed By: #### B MARVIN FRENCH CMADM ####[facility] Erlgzsqumi[address] [place], [place] [address]Dr. Garima Pulliam HSTROP 8.8 pg/mL Normal 4.0-76.1 [...] B MARVIN FRENCH CMADM ####[facility] Ttsaerumdq[address] [place], [place] [address]Dr. Garima Pulliam DORIS 83 ng/mL Normal 16-96 [facility] Comment on above: Performed By: #### B MARVIN FRENCH CMADM ####[facility] Dobtqujtwu[address] [place], [place] [address]Dr. Garima Pulliam CBC AUTO DIFFon 12-25-2022 BASO # 0.0 103/ul Normal 0.0-0.1 [facility] Comment on above: Performed By: #### C BC ####[facility] Nplgvnnxtj6[address] [place], [place] [address]Dr. Garima Pulliam Basophils/100 WBC (Bld) 0.0 % Critically low 0.2-2.0 [facility] Comment on above: Performed By: #### C BC ####[facility] Oijujhevxe9345 [place] [address]Dr. Garima Pulliam EO # 0.0 103/ul Normal 0.0-0.7 [facility] Comment on above: Performed By: #### C BC ####[facility] Sczsdhxzvs[address] [place], [place] [address]Dr. Garima Pulliam Eosinophils/100 WBC (Bld) 0.7 % Critically low 0.9-7.0 [facility] Comment on above: Performed By: #### C BC ####[facility] Yetmmcxmsl1838[address] [place], [place] [address]Dr. Garima Pulliam Erythrocyte distribution width (RBC) [Ratio] 13.4 % Normal 11.0-15.0 [facility] Comment on above: Performed By: #### C BC ####[facility] Hodhhngdrg5[address] [place], [place] [address]Dr. Garima Pulliam Hematocrit (Bld) [Volume fraction] 42.9 % Normal 42.0-54.0 [facility] Comment on above: Performed By: #### C BC ####[facility] Hxizkcbsdf220[address] [place], [place] [address]Dr. Garima Pulliam Hemoglobin (Bld) [Mass/Vol] 14.4 g/dL Normal 14.0-18.0 [facility] Comment on above: Performed By: #### C BC ####[facility] Qvlafuxbts01[address] [place], [place] [address]Dr. Garima Pulliam IG # 0.00 10e3/ul Normal 0.00-0.03 [facility] Comment on above: Performed By: #### C BC ####[facility] Sysqnkanmt89[address] [place], [place] [address]Dr. Garima Pulliam IG % 0.0 % Normal 0.0-0.5 [facility] Comment on above: Performed By: #### C BC ####[facility] Hawkyeykfh85[address] [place], [place] [address]Dr. Garima Pulliam LYMPH # 2.4 103/ul Normal 1.2-3.8 [facility] Comment on above: Performed By: #### C BC ####[facility] Cbabyqrwtv5311 [place] [phone]. Chapisrenu Pulliam Lymphocytes/100 WBC (Bld) 29.2 % Normal 20.5-60.0 [facility] Comment on above: Performed By: #### C BC ####[facility] Cpbuibsklg9156 [place] [phone]. Garima Pulliam MANUAL DIFF REQ NO Normal [facility] Comment on above: Performed By: #### C BC ####[facility] Hjvspsmnyf2192 [place] [phone]. Garima Pulliam MCH (RBC) [Entitic mass] 30.7 pg Normal 25.9-34.0 [facility] Comment on above: Performed By: #### C BC ####[facility] Qhjidfngfv8[address] [place], [place] [address]Dr. Garima Pulliam MCHC (RBC) [Mass/Vol] 33.6 g/dL Normal 29.9-35.2 [facility] Comment on above: Performed By: #### C BC ####[facility] Ylqspxheov8[address] [place], [place] [address]Dr. Garima Pulliam MCV (RBC) [Entitic vol] 91.5 fL Normal 80.0-94.0 [facility] Comment on above: Performed By: #### C BC ####[facility] Flfclrwvqk65[address] [place], [place] [address]Dr. Garima Pulliam MONO # 0.0 103/ul Critically low 0.3-0.8 [facility] Comment on above: Performed By: #### C BC ####[facility] Qkwekrqwgh4455 [place] [address]Dr. Garima Pulliam Monocytes/100 WBC (Bld) 8.0 % Normal 1.7-12.0 [facility] Comment on above: Performed By: #### C BC ####[facility] Sqrpfyofxb68[address] [place], [place] [address]Dr. Garima Pulliam NEUT # 5.1 103/ul Normal 1.4-6.5 [facility] Comment on above: Performed By: #### C BC ####[facility] Jhnebppbgw9709 [place], [place] [address]Zi. Garima Pulliam Neutrophils/100 WBC (Bld) 62.8 % Normal 43.0-75.0 [facility] Comment on above: Performed By: #### C BC ####[facility] Qpeospwwcf7096 [place], [place] [address]Xp. Garima Pulliam Platelet mean volume (Bld) [Entitic vol] 8.6 fL Critically low 9.5-13.5 [facility] Comment on above: Performed By: #### C BC ####[facility] Awjnarqnun1317 [place] [phone]. Garima Pulliam PLT 200 103/ul Normal 150-450 [facility] Comment on above: Performed By: #### C BC ####[facility] Gvlwjdfhql5751 [place] [phone]. Garima Pulliam RBC 4.69 106/ul Critically low 4.70-6.10 [facility] Comment on above: Performed By: #### C BC ####[facility] Hnrtraxuqr1009 [place], [place] [address]Sr. Garima Pulliam WBC 8.2 103/ul Normal 4.0-11.0 [facility] Comment on above: Performed By: #### C BC ####[facility] Hkujndxdan9461 [place], [place] [address]Gq. Garima Pulliam Covid-19 PCR ([facility])on [...] for this test is supported by the Supply Chain Buyer of Health and Human Service's declaration that [...] By: #### C VDTBH ####[facility] Qziekvbfog87[address] [place], [place] [address]Dr. Garima Pulliam INFLUENZA A AND B AGon 12-25 INFLUANEGH SEE BELOW Normal [facility] Comment on above: Result Comment: Nega tive for Flu A protein angiten. Infection due to Flu A cannot be ruled out. Flu A angiten in the sample may be below the detection limit of the test. Performed By: #### I NFLUAB ####[facility] Ummgmnaous[address] [place], [place] [address]Dr. Garima Pulliam INFLUBNEGH SEE BELOW Normal [facility] Comment on above: Result Comment: Nega tive for Flu B protein antigen. Infection due to Flu B cannot be ruled out. Flu B antigen in the sample may be below the detection limit of the test. Performed By: #### I NFLUAB ####[facility] Koyhwoqjla[address] [place], [place] [address]Dr. Garima Pulliam INFLUENZA A AG Negative Normal NEGATIVE SEE COMMENT [facility] Comment on above: Performed By: #### I NFLUAB ####[facility] Jnowuehyqo7[address] [place], [place] [address]Dr. renu [facility] INFLUENZA B AG Negative Normal NEGATIVE SEE COMMENT [facility] Comment on above: Performed By: #### I NFLUAB ####[facility] Bpterajpyc[address] [place], [place] [address]Dr. Garima Pulliam PROF CHEM 8 (BAS METB)on Anion gap [Moles/Vol] 11.1 mmol/L Normal [facility] Comment on above: Performed By: #### B MANAGER PAYROLL, BMP, CMADM ####[facility] Fuvgtrexuk9[address] [place], [place] [address]Dr. Garima Pulliam Calcium [Mass/Vol] 8.5 mg/dL Normal 8.5-10.1 [facility] Comment on above: Performed By: #### B MANAGER PAYROLL, MARVIN, CMADM ####[facility] Hbhdrhduzb4805 [place] [phone]. Garima Pulliam Chloride [Moles/Vol] 106 mmol/L Normal 98-107 [facility] Comment on above: Performed By: #### B MANAGER PAYROLL, BMP, CMADM ####[facility] Qwfkgzezlv4265 [place] [address]Dr. Garima Pulliam CO2 [Moles/Vol] 27.4 mmol/L Normal 21.0-32.0 [facility] Comment on above: Performed By: #### B MANAGER PAYROLL, MARVIN, CMADM ####[facility] Enbrdnbuam1034 [place] [address]Dr. Garima Pulliam Creatinine [Mass/Vol] 0.65 mg/dL Critically low 0.70-1.30 [facility] Comment on above: Performed By: #### B MANAGER PAYROLL, MARVIN, CMADM ####[facility] Zpqkcfpqum5586 [place] [address]Dr. Garima Pulliam EGFR-AF NIGERIAN >60 Normal >=60 [facility] Comment on above: Performed By: #### B MANAGER PAYROLL, BMP, CMADM ####[facility] Byuaanmjte3929 [place] [address]Dr. Garima Pulliam EGFR-NON AF NIGERIAN >60 Normal >=60 [facility] Comment on above: Performed By: #### B MANAGER PAYROLL, BMP, CMADM ####[facility] Ghxecmnyco6470 [place] [address]Dr. Garima Pulliam Glucose [Mass/Vol] 140 mg/dL Critically high 74-106 [facility] Comment on above: Performed By: #### B MANAGER PAYROLL, BMP, CMADM ####[facility] Bwxgyhlavi6651 [place] [address]Dr. Garima Pulliam Potassium [Moles/Vol] 3.5 mmol/L Normal 3.5-5.1 [facility] Comment on above: Performed By: #### B MANAGER PAYROLL, BMP, CMADM ####[facility] Yaydcrrqau2727 [place] [address]Dr. Garima Pulliam Sodium [Moles/Vol] 141 mmol/L Normal 136-145 [facility] Comment on above: Performed By: #### B MANAGER PAYROLL, BMP, CMADM ####[facility] Zeccacpamx88[address] [place] [address]Dr. Garima Pulliam Urea nitrogen [Mass/Vol] 8.0 mg/dL Normal 7.0-18.0 [facility] Comment on above: Performed By: #### B MANAGER PAYROLL, BMP, CMADM ####[facility] Fltyvcwxno[address] [place] [address]Dr. Garima Pulliam Urea nitrogen/Creatinine [Mass ratio] 12.3 mg/mg Normal [facility] Comment on above: Performed By: #### B MANAGER PAYROLL, BMP, CMADM ####[facility] Ymcqupvlmt[address] [place], [place] [address]Dr. Garima Pulliam CARDIAC NASH ADMITon 023 CK [Catalytic activity/Vol] 165 U/L Normal 39-308 [facility] Comment on above: Performed By: #### B DAVID, CMADM ####[facility] Rxugafnlvn[address] [place], [place] [address]Dr. Garima Pulliam CK.MB [Mass/Vol] 6.48 ng/mL Critically high <=3.60 [facility] Comment on above: Performed By: #### B MP, CMADM ####[facility] Pzidiemwms[address] [place], [place] [address]Dr. Garima Pulliam HSTROP 11.7 pg/mL Normal 4.0-76.1 [facility] Comment on above: Result Comment: CUT- OFF POINTS HAVE BEEN ESTABLISHED BASED ON THE FOURTH UNIVERSAL DEFINITIONS OF MYOCARDIALINFARCTION. THE UPPER REFERENCE LIMIT (URL) OF TROPONIN, DEFINED THE 99TH PERCENTILE OFcTnI DISTRIBUTION IN A REFERENCE POPULATION, HAS BEEN CONFIRMED THE DECISION THRESHOLDFOR [place] DIAGNOSIS. Performed By: #### B MP, CMADM ####[facility] Nnjgesaluf42[address] [place], [place] [address]Dr. Garima Pulliam DORIS 83 ng/mL Normal 16-96 [facility] Comment on above: Performed By: #### B MP, CMADM ####[facility] Bqisexotiv64[address] [place] [address]Dr. Garima Pulliam CBC AUTO DIFFon 12-10-2022 BASO # 0.0 103/ul Normal 0.0-0.1 [facility] Comment on above: Performed By: #### C BC ####[facility] Arzahsmaow[address] [place], [place] [address]Dr. Garima Heraclio Basophils/100 WBC (Bld) 0.3 % Normal 0.2-2.0 [facility] Comment on above: Performed By: #### C BC ####[facility] Dzwjjjquvq20[address] [place], [place] [address]Dr. Garima Pulliam EO # 0.1 103/ul Normal 0.0-0.7 [facility] Comment on above: Performed By: #### C BC ####[facility] Hdzbushibz8[address] [place], [place] [address]Dr. Garima Pulliam Eosinophils/100 WBC (Bld) 0.4 % Critically low 0.9-7.0 [facility] Comment on above: Performed By: #### C BC ####[facility] Locxkjushr5[address] [place], [place] [address]Dr. Garima Pulliam Erythrocyte distribution width (RBC) [Ratio] 13.2 % Normal 11.0-15.0 [facility] Comment on above: Performed By: #### C BC ####[facility] Jauzeckzrs14[address] [place], [place] [address]Dr. Garima Pulliam Hematocrit (Bld) [Volume fraction] 42.4 % Normal 42.0-54.0 [facility] Comment on above: Performed By: #### C BC ####[facility] Cvigbgwxni9746[address] [place], [place] [address]Dr. Garima Pulliam Hemoglobin (Bld) [Mass/Vol] 14.4 g/dL Normal 14.0-18.0 [facility] Comment on above: Performed By: #### C BC ####[facility] Wrzbwzxvdp55[address] [place] [phone]. Garima Heraclio IG # 0.05 10e3/ul Critically high 0.00-0.03 [facility] Comment on above: Performed By: #### C BC ####[facility] Shalsuzfgr4[address] [place] [address]Dr. Garima Heraclio IG % 0.4 % Normal 0.0-0.5 [facility] Comment on above: Performed By: #### C BC ####[facility] Usaufgkcqz5[address] [place], [place] [address]Dr. Garima Pulliam LYMPH # 0.8 103/ul Critically low 1.2-3.8 [facility] Comment on above: Performed By: #### C BC ####[facility] Fdtgfawgxh5[address] [place], [place] [address]Dr. Chapisrenu Pulliam Lymphocytes/100 WBC (Bld) 6.5 % Critically low 20.5-60.0 [facility] Comment on above: Performed By: #### C BC ####[facility] Qvqvccrnoi[address] [place], [place] [address]Dr. Chapisrenu Pulliam MANUAL DIFF REQ NO Normal [facility] Comment on above: Performed By: #### C BC ####[facility] Ouphycdpkr45[address] [place], [place] [address]DrAdalberto Garima Pulliam MCH (RBC) [Entitic mass] 30.5 pg Normal 25.9-34.0 [facility] Comment on above: Performed By: #### C BC ####[facility] Uohbdefucf[address] [place], [place] [address]DrAdalberto Garima Heraclio MCHC (RBC) [Mass/Vol] 34.0 g/dL Normal 29.9-35.2 [facility] Comment on above: Performed By: #### C BC ####[facility] Mvgkulcpvl27[address] [place], [place] [address]DrAdalberto Garima Heraclio MCV (RBC) [Entitic vol] 89.8 fL Normal 80.0-94.0 [facility] Comment on above: Performed By: #### C BC ####[facility] Nltulyyglg6[address] [place], [place] [address]Dr. Garima Pulliam MONO # 0.2 103/ul Critically low 0.3-0.8 [facility] Comment on above: Performed By: #### C BC ####[facility] Dhzfdgvbfe35[address] [place] [phone]. Garima Pulliam Monocytes/100 WBC (Bld) 2.0 % Normal 1.7-12.0 [facility] Comment on above: Performed By: #### C BC ####[facility] Gxolgupwxk47[address] [place] [address]Dr. Chapisrenu Heraclio NEUT # 10.5 103/ul Critically high 1.4-6.5 [facility] Comment on above: Performed By: #### C BC ####[facility] Dnayoefiwt[address] [place] [address]Dr. Garima Pulliam Neutrophils/100 WBC (Bld) 90.4 % Critically high 43.0-75.0 [facility] Comment on above: Performed By: #### C BC ####[facility] Cqzplanzbt79[address] [place] [address]Dr. Garima Pulliam Platelet mean volume (Bld) [Entitic vol] 9.4 fL Critically low 9.5-13.5 [facility] Comment on above: Performed By: #### C BC ####[facility] Enogzjfspr[address] [place] [address]Dr. Garima Pulliam PLT 198 103/ul Normal 150-450 [facility] Comment on above: Performed By: #### C BC ####[facility] Prrdvvvxni5[address] [place] [address]Dr. Garima Pulliam RBC 4.72 106/ul Normal 4.70-6.10 [facility] Comment on above: Performed By: #### C BC ####[facility] Qslsbcikph1640 [place] [phone]. Garima Pulliam WBC 11.6 103/ul Critically high 4.0-11.0 [facility] Comment on above: Performed By: #### C BC ####[facility] Uojujtlbsv67[address] [place] [address]DrAdalberto Pulliam PROF CHEM 8 (BAS METB)on Anion gap [Moles/Vol] 11.3 mmol/L Normal [facility] Comment on above: Performed By: #### B NANCY HERNANDEZ ####[facility] Dsclghoeil27[address] [place] [address]Dr. Garima Pulliam Calcium [Mass/Vol] 8.9 mg/dL Normal 8.5-10.1 [facility] Comment on above: Performed By: #### B NANCY HERNANDEZ ####[facility] Ufpscokpnx84[address] [place] [address]Dr. Garima Pulliam Chloride [Moles/Vol] 103 mmol/L Normal 98-107 [facility] Comment on above: Performed By: #### B NANCY HERNANDEZ ####[facility] Trgvsksiyg[address] [place], [place] [address]Dr. Garima Pulliam CO2 [Moles/Vol] 28.2 mmol/L Normal 21.0-32.0 [facility] Comment on above: Performed By: #### NANCY Larkin MP ####[facility] Miugrxdllo14[address] [place] [address]Dr. Chapisrenu Pulliam Creatinine [Mass/Vol] 0.60 mg/dL Critically low 0.70-1.30 [facility] Comment on above: Performed By: #### NANCY Larkin MP ####[facility] Yfsrfpjfpa44[address] [place] [address]Dr. Garima Pulliam EGFR-AF NIGERIAN >60 Normal >=60 [facility] Comment on above: Performed By: #### NANCY Larkin MP ####[facility] Jgrlvmpoxl0692 [place] [address]Dr. Garima Pulliam EGFR-NON AF NIGERIAN >60 Normal >=60 [facility] Comment on above: Performed By: #### NANCY Larkin MP ####[facility] Pcetbkjuam[address] [place], [place] [address]Dr. Garima Pulliam Glucose [Mass/Vol] 166 mg/dL Critically high 74-106 [facility] Comment on above: Performed By: #### B MP, CMADM ####[facility] Dmoouitihb[address] [place] [address]Dr. Garima Pulliam Potassium [Moles/Vol] 3.5 mmol/L Normal 3.5-5.1 [facility] Comment on above: Performed By: #### B MP, CMADM ####[facility] Dwqhgxqiao52[address] [place] [address]Dr. Garima Pulliam Sodium [Moles/Vol] 139 mmol/L Normal 136-145 [facility] Comment on above: Performed By: #### B DAVID, CMADM ####[facility] Koenbnmbhk8896 [place] [address]Dr. Garima Heraclio Urea nitrogen [Mass/Vol] 9.0 mg/dL Normal 7.0-18.0 [facility] Comment on above: Performed By: #### B DAVID, NANCY ####[facility] Idwltregqp[address] [place], [place] [address]Dr. Garima Heraclio Urea nitrogen/Creatinine [Mass ratio] 15.0 mg/mg Normal [facility] Comment on above: Performed By: #### B DAVID, CMAANA ROSA ####[facility] Jqwhobrzlb[address] [place], [place] [address]Dr. Garima Pulliam XR CHEST 1 Von 12-10-2022 XR CHEST 1 V Normal [facility] BNPon 11-27-2022 Natriuretic peptide B (Bld) [Mass/Vol] 95.0 pg/mL Normal <=900.0 [facility] Comment on above: Performed By: #### C MP, HSTROPN, BNP ####[facility] Igsdfeanen01[address] [place], [place] [address]Dr. Garima Heraclio CBC AUTO DIFFon 11-27-2022 BASO # 0.0 103/ul Normal 0.0-0.1 [facility] Comment on above: Performed By: #### C BC ####[facility] Hvtwrwolwk32[address] [place], [place] [address]Dr. Garima Heraclio Basophils/100 WBC (Bld) 0.2 % Normal 0.2-2.0 [facility] Comment on above: Performed By: #### C BC ####[facility] Jkkshteywq075[address] [place] [phone]. Garima Pulliam EO # 0.2 103/ul Normal 0.0-0.7 [facility] Comment on above: Performed By: #### C BC ####[facility] Prjlmcemjq3541 [place] [phone]. Garima Pulliam Eosinophils/100 WBC (Bld) 2.0 % Normal 0.9-7.0 [facility] Comment on above: Performed By: #### C BC ####[facility] Rgfzfjwgjj[address] [place], [place] [address]Dr. Garima Pulliam Erythrocyte distribution width (RBC) [Ratio] 13.2 % Normal 11.0-15.0 [facility] Comment on above: Performed By: #### C BC ####[facility] Ixgidlwbdq99[address] [place], [place] [address]Dr. Garima Pullaim Hematocrit (Bld) [Volume fraction] 42.4 % Normal 42.0-54.0 [facility] Comment on above: Performed By: #### C BC ####[facility] Jophxswfkw[address] [place], [place] [address]Dr. Garima Pulliam Hemoglobin (Bld) [Mass/Vol] 14.4 g/dL Normal 14.0-18.0 [facility] Comment on above: Performed By: #### C BC ####[facility] Ltgpaxylka[address] [place], [place] [address]Dr. Garima Pulliam IG # 0.04 10e3/ul Critically high 0.00-0.03 [facility] Comment on above: Performed By: #### C BC ####[facility] Ivqcyywxyd87[address] [place], [place] [address]Dr. Garima Pulliam IG % 0.4 % Normal 0.0-0.5 [facility] Comment on above: Performed By: #### C BC ####[facility] Hgiynvbzqv[address] [place], [place] [address]Dr. Garima Pulliam LYMPH # 2.2 103/ul Normal 1.2-3.8 [facility] Comment on above: Performed By: #### C BC ####[facility] Dzzuarewvm101[address] [place] [phone]. Garima Pulliam Lymphocytes/100 WBC (Bld) 21.5 % Normal 20.5-60.0 [facility] Comment on above: Performed By: #### C BC ####[facility] Rqpymgjzeo69[address] [place] [phone]. Garima Heraclio MANUAL DIFF REQ NO Normal [facility] Comment on above: Performed By: #### C BC ####[facility] Tazmjzrwfp54[address] [place] [phone]. Garima Heraclio MCH (RBC) [Entitic mass] 30.4 pg Normal 25.9-34.0 [facility] Comment on above: Performed By: #### C BC ####[facility] Ptocfbodjg67[address] [place] [address]Dr. Garima Heraclio MCHC (RBC) [Mass/Vol] 34.0 g/dL Normal 29.9-35.2 [facility] Comment on above: Performed By: #### C BC ####[facility] Agvjygothp5[address] [place] [phone]. Garima Pulliam MCV (RBC) [Entitic vol] 89.6 fL Normal 80.0-94.0 [facility] Comment on above: Performed By: #### C BC ####[facility] Dlplbkjjey8909 [place] [phone]. Garima Pulliam MONO # 0.8 103/ul Normal 0.3-0.8 [facility] Comment on above: Performed By: #### C BC ####[facility] Mimsomivao[address] [place] [phone]. Chpaisrenu Pulliam Monocytes/100 WBC (Bld) 7.7 % Normal 1.7-12.0 [facility] Comment on above: Performed By: #### C BC ####[facility] Ppscafiygf[address] [place], [place] [address]Dr. Garima Pulliam NEUT # 7.0 103/ul Critically high 1.4-6.5 [facility] Comment on above: Performed By: #### C BC ####[facility] Zdnujmviof1873 [place] [phone]. Garima Pulliam Neutrophils/100 WBC (Bld) 68.2 % Normal 43.0-75.0 [facility] Comment on above: Performed By: #### C BC ####[facility] Oyncwpvswy7126 [place] [phone]. Chapisrenu Pulliam Platelet mean volume (Bld) [Entitic vol] 8.9 fL Critically low 9.5-13.5 [facility] Comment on above: Performed By: #### C BC ####[facility] Pvuntaesdg80[address] [place] [address]Dr. Garima Pulliam PLT 222 103/ul Normal 150-450 [facility] Comment on above: Performed By: #### C BC ####[facility] Zghklphxvo2942 [place] [address]Dr. Garima Pulliam RBC 4.73 106/ul Normal 4.70-6.10 [facility] Comment on above: Performed By: #### C BC ####[facility] Jjhgxcmweh55[address] [place] [address]Dr. Garima Pulliam WBC 10.3 103/ul Normal 4.0-11.0 [facility] Comment on above: Performed By: #### C BC ####[facility] Shdoliexqj3070 [place] [address]Dr. Garima Pulliam PROF 14(COMP METB)on 023 Albumin [Mass/Vol] 3.7 g/dL Normal 3.4-5.0 [facility] Comment on above: Performed By: #### C MP, HSTROPN, BNP ####[facility] Ltomsqvacs7[address] [place] [address]Dr. Chapisrenu Pulliam Albumin/Globulin [Mass ratio] 1.5 {ratio} Normal [facility] Comment on above: Performed By: #### C MP, HSTROPN, BNP ####[facility] Rhgkyemvzz[address] [place] [address]Dr. Garima Pulliam ALP [Catalytic activity/Vol] 79 U/L Normal 46-116 [facility] Comment on above: Performed By: #### C MP, HSTROPN, BNP ####[facility] Zfhrwmtydu9186 [place] [address]Dr. Garima Pulliam ALT [Catalytic activity/Vol] 32 U/L Normal 16-63 [facility] Comment on above: Performed By: #### C MP, HSTROPN, BNP ####[facility] Ngkpxvidql0782 [place] [address]Dr. Garima Pulliam Anion gap [Moles/Vol] 9.5 mmol/L Normal [facility] Comment on above: Performed By: #### C MP, HSTROPN, BNP ####[facility] Dlimlhwcqb89[address] [place], [place] [address]Dr. Garima Pulliam AST [Catalytic activity/Vol] 25 U/L Normal 15-37 [facility] Comment on above: Performed By: #### C MP, HSTROPN, BNP ####[facility] Xqdhkgdili88[address] [place], [place] [address]Dr. Chapislan Pulliam Bilirubin [Mass/Vol] 0.4 mg/dL Normal 0.2-1.0 [facility] Comment on above: Performed By: #### C MP, HSTROPN, BNP ####[facility] Rrsbwiyqpm[address] [place], [place] [address]Dr. Garima Pulliam Calcium [Mass/Vol] 8.9 mg/dL Normal 8.5-10.1 [facility] Comment on above: Performed By: #### C MP, HSTROPN, BNP ####[facility] Dwnfjqjeos04[address] [place], [place] [address]Dr. Chapislan Pulliam Chloride [Moles/Vol] 103 mmol/L Normal 98-107 [facility] Comment on above: Performed By: #### C MP, HSTROPN, BNP ####[facility] Sxkcqzluoe6[address] [place], [place] [address]Dr. Yilan Pulliam CO2 [Moles/Vol] 28.6 mmol/L Normal 21.0-32.0 [facility] Comment on above: Performed By: #### C MP, HSTROPN, BNP ####[facility] Ndbcrlvywc3005 [place] [address]Dr. Garima Pulliam Creatinine [Mass/Vol] 0.72 mg/dL Normal 0.70-1.30 [facility] Comment on above: Performed By: #### C MP, HSTROPN, BNP ####[facility] Kuxxtxxnyy20[address] [place] [address]Dr. Garima Pulliam EGFR-AF NIGERIAN >60 Normal >=60 [facility] Comment on above: Performed By: #### C MP, HSTROPN, BNP ####[facility] Kajizzgjha23[address] [place] [address]Dr. Garima Pulliam EGFR-NON AF NIGERIAN >60 Normal >=60 [facility] Comment on above: Performed By: #### C MP, HSTROPN, BNP ####[facility] Zlrcsbnrnb8344 [place] [address]Dr. Garima Pulliam Globulin (S) [Mass/Vol] 2.5 g/dL Normal [facility] Comment on above: Performed By: #### C MP, HSTROPN, BNP ####[facility] Zhhbsblurk67[address] [place], [place] [address]Dr. Garima Pulliam Glucose [Mass/Vol] 114 mg/dL Critically high 74-106 [facility] Comment on above: Performed By: #### C MP, HSTROPN, BNP ####[facility] Dggjmplbep[address] [place], [place] [address]Dr. Garima Pulliam Potassium [Moles/Vol] 4.1 mmol/L Normal 3.5-5.1 [facility] Comment on above: Performed By: #### C MP, HSTROPN, BNP ####[facility] Ksvxgjptka65[address] [place], [place] [address]Dr. Garima Pulliam Protein [Mass/Vol] 6.2 g/dL Critically low 6.4-8.2 [facility] Comment on above: Performed By: #### C MP, HSTROPN, BNP ####[facility] Yvontgqdyk56[address] [place], [place] [address]Dr. Yilan Pulliam Sodium [Moles/Vol] 137 mmol/L Normal 136-145 [facility] Comment on above: Performed By: #### C MP, HSTROPN, BNP ####[facility] Hndmpgtkeo1618 [place] [address]Dr. Garima Pulliam Urea nitrogen [Mass/Vol] 13.0 mg/dL Normal 7.0-18.0 [facility] Comment on above: Performed By: #### C MP, HSTROPN, BNP ####[facility] Ljodotqpkg5653 [place] [address]Dr. Garima Pulliam Urea nitrogen/Creatinine [Mass ratio] 18.1 mg/mg Normal [facility] Comment on above: Performed By: #### C MP, HSTROPN, BNP ####[facility] Dkqanvddpf[address] [place], [place] [address]Dr. Garima Pulliam TROPONIN, HIGH SENSITIVITYon 11-27-2022 HSTROP 11.8 pg/mL Normal 4.0-76.1 [facility] Comment on above: Result Comment: CUT- OFF POINTS HAVE BEEN ESTABLISHED BASED ON THE FOURTH UNIVERSAL DEFINITIONS OF MYOCARDIALINFARCTION. THE UPPER REFERENCE LIMIT (URL) OF TROPONIN, DEFINED THE 99TH PERCENTILE OFcTnI DISTRIBUTION IN A REFERENCE POPULATION, HAS BEEN CONFIRMED THE DECISION THRESHOLDFOR [place] DIAGNOSIS. Performed By: #### C MP, HSTROPN, BNP ####[facility] Nvwptwbiht[address] [place], [place] [address]Dr. Garima Pulliam XR CHEST 1 Von 11-27-2022 XR CHEST 1 V Normal [facility] BNPon 11-20-2022 Natriuretic peptide B (Bld) [Mass/Vol] 73.0 pg/mL Normal <=900.0 [facility] Comment on above: Performed By: #### B MP, HSTROPN, BNP ####[facility] Eyrrerbrho47[address] [place], [place] [address]Dr. Garima Pulliam CBC AUTO DIFFon 11-20-2022 BASO # 0.0 103/ul Normal 0.0-0.1 [facility] Comment on above: Performed By: #### C BC ####[facility] Iibluxjkix7[address] [place] [phone]. Garima Pulliam Basophils/100 WBC (Bld) 0.3 % Normal 0.2-2.0 [facility] Comment on above: Performed By: #### C BC ####[facility] Tnqzwtufnk2314 [place] [phone]. Garima Pulliam EO # 0.2 103/ul Normal 0.0-0.7 [facility] Comment on above: Performed By: #### C BC ####[facility] Dykeqdicjq6[address] [place] [address]Dr. Garima Pulliam Eosinophils/100 WBC (Bld) 2.1 % Normal 0.9-7.0 [facility] Comment on above: Performed By: #### C BC ####[facility] Knayttwzqb[address] [place], [place] [address]Dr. Garima Pulliam Erythrocyte distribution width (RBC) [Ratio] 13.2 % Normal 11.0-15.0 [facility] Comment on above: Performed By: #### C BC ####[facility] Qsbskzgbhn[address] [place], [place] [address]Dr. Garima Pulliam Hematocrit (Bld) [Volume fraction] 43.4 % Normal 42.0-54.0 [facility] Comment on above: Performed By: #### C BC ####[facility] Kmyvmllsnl[address] [place], [place] [id number]. Garima Pulliam Hemoglobin (Bld) [Mass/Vol] 14.6 g/dL Normal 14.0-18.0 [facility] Comment on above: Performed By: #### C BC ####[facility] Spjtkcoaqe8415 [place] [phone]. Garima Pulliam IG # 0.02 10e3/ul Normal 0.00-0.03 [facility] Comment on above: Performed By: #### C BC ####[facility] Dtoflphadv8102 [place] [address]Dr. Garima Pulliam IG % 0.2 % Normal 0.0-0.5 [facility] Comment on above: Performed By: #### C BC ####[facility] Kujkhtkkep6892 [place] [phone]. aGrima Heraclio LYMPH # 2.1 103/ul Normal 1.2-3.8 [facility] Comment on above: Performed By: #### C BC ####[facility] Wiklqfqfgv8429 [place] [phone]. Garima Heraclio Lymphocytes/100 WBC (Bld) 19.2 % Critically low 20.5-60.0 [facility] Comment on above: Performed By: #### C BC ####[facility] Wvzammeasr34[address] [place] [phone]. Chapisrenu Pulliam MANUAL DIFF REQ NO Normal [facility] Comment on above: Performed By: #### C BC ####[facility] Uakdfpyono0264 [place] [phone]. Garima Heraclio MCH (RBC) [Entitic mass] 30.4 pg Normal 25.9-34.0 [facility] Comment on above: Performed By: #### C BC ####[facility] Rryywfzypj98[address] [place] [address]Dr. Garima Pulliam MCHC (RBC) [Mass/Vol] 33.6 g/dL Normal 29.9-35.2 [facility] Comment on above: Performed By: #### C BC ####[facility] Vjxmvppafk3693 [place] [phone]. Garima Heraclio MCV (RBC) [Entitic vol] 90.4 fL Normal 80.0-94.0 [facility] Comment on above: Performed By: #### C BC ####[facility] Takbfwenon8[address] [place] [phone]. Garima Heraclio MONO # 0.6 103/ul Normal 0.3-0.8 [facility] Comment on above: Performed By: #### C BC ####[facility] Mrqhqaqvyf12[address] [place] [address]Dr. Garima Heraclio Monocytes/100 WBC (Bld) 5.8 % Normal 1.7-12.0 [facility] Comment on above: Performed By: #### C BC ####[facility] Oizhdgiwiv23[address] [place], [place] [address]Ao. Garima Pulliam NEUT # 7.8 103/ul Critically high 1.4-6.5 [facility] Comment on above: Performed By: #### C BC ####[facility] Ncqmrqtxel8672 [place] [phone]. Garima Pulliam Neutrophils/100 WBC (Bld) 72.4 % Normal 43.0-75.0 [facility] Comment on above: Performed By: #### C BC ####[facility] Wvahkdqifq9413 [place] [phone]. Garima Pulliam Platelet mean volume (Bld) [Entitic vol] 8.7 fL Critically low 9.5-13.5 [facility] Comment on above: Performed By: #### C BC ####[facility] Zdntdthxcf9624 [place] [phone]. Garima Pulliam PLT 184 103/ul Normal 150-450 [facility] Comment on above: Performed By: #### C BC ####[facility] Vdsbkdfsxt0899 [place], [place] [address]Ug. Garima Pulliam RBC 4.80 106/ul Normal 4.70-6.10 [facility] Comment on above: Performed By: #### C BC ####[facility] Sjzpmnxzjj2684 [place] [phone]. Garima Pulliam WBC 10.8 103/ul Normal 4.0-11.0 [facility] Comment on above: Performed By: #### C BC ####[facility] R[address]jkmtaad[address] [place] [id number]. Garima Pulliam Covid-19 PCR ([facility])on [...] for this test is supported by the [employer] of Health and Human Service's declaration that [...] By: #### C VDTBH ####[facility] Lqmucwtiuo[address] [place], [place] [address]Dr. Garima Pulliam INFLUENZA A AND B AGon 11-[facility] SEE BELOW Normal [facility] Comment on above: Result Comment: Nega tive for Flu A protein angiten. Infection due to Flu A cannot be ruled out. Flu A angiten in the sample may be below the detection limit of the test. Performed By: #### I NFLUAB ####[facility] Mazyersvkh[address] [place], [place] [address]Dr. Garima Pulliam INFLUBNEGH SEE BELOW Normal [facility] Comment on above: Result Comment: Nega tive for Flu B protein antigen. Infection due to Flu B cannot be ruled out. Flu B antigen in the sample may be below the detection limit of the test. Performed By: #### I NFLUAB ####[facility] Kjccgerora[address] [place], [place] [address]Dr. Garima Pulliam INFLUENZA A AG Negative Normal NEGATIVE SEE COMMENT [facility] Comment on above: Performed By: #### I NFLUAB ####[facility] Mporqgjwhq[address] [place], [place] [address]Dr. Garima [facility] INFLUENZA B AG Negative Normal NEGATIVE SEE COMMENT [facility] Comment on above: Performed By: #### I NFLUAB ####[facility] Ljyfngglvi8[address] [place], [place] [address]Dr. Garima Pulliam PROF CHEM 8 (BAS METB)on Anion gap [Moles/Vol] 8.2 mmol/L Normal [facility] Comment on above: Performed By: #### B MP, HSTROPN, BNP ####[facility] Bkq[address]sdlsr[address] [place] [address]Dr. Garima Pulliam Calcium [Mass/Vol] 8.7 mg/dL Normal 8.5-10.1 [facility] Comment on above: Performed By: #### B MP, HSTROPN, BNP ####[facility] Kq[address]inkgpw[address] [place] [address]Dr. Garima Pulliam Chloride [Moles/Vol] 103 mmol/L Normal 98-107 [facility] Comment on above: Performed By: #### B MP, HSTROPN, BNP ####[facility] Nlwugfhhzg[address] [place], [place] [address]Dr. Garima Pulliam CO2 [Moles/Vol] 29.4 mmol/L Normal 21.0-32.0 [facility] Comment on above: Performed By: #### B MP, HSTROPN, BNP ####[facility] Pmhfwobiks[address] [place], [place] [address]Dr. Garima Pulliam Creatinine [Mass/Vol] 0.69 mg/dL Critically low 0.70-1.30 [facility] Comment on above: Performed By: #### B MP, HSTROPN, BNP ####[facility] Tp[address]ultqjj[address] [place] [address]Dr. Garima Pulliam EGFR-AF NIGERIAN >60 Normal >=60 [facility] Comment on above: Performed By: #### B MP, HSTROPN, BNP ####[facility] Psxqlfzlyv67[address] [place], [place] [address]Dr. Garima Pulliam EGFR-NON AF NIGERIAN >60 Normal >=60 [facility] Comment on above: Performed By: #### B MP, HSTROPN, BNP ####[facility] G[address]awfll[address] [place] [address]Dr. Garima Pulliam Glucose [Mass/Vol] 209 mg/dL Critically high 74-106 [facility] Comment on above: Performed By: #### B MP, HSTROPN, BNP ####[facility] Mp[address]ppimf[address] [place] [address]Dr. Garima Pulliam Potassium [Moles/Vol] 3.6 mmol/L Normal 3.5-5.1 [facility] Comment on above: Performed By: #### B MP, HSTROPN, BNP ####[facility] Csutvslgtd[address] [place] [address]Dr. Garima Pulliam Sodium [Moles/Vol] 137 mmol/L Normal 136-145 [facility] Comment on above: Performed By: #### B MP, HSTROPN, BNP ####[facility] Lousskuvrj[address] [place] [address]Dr. Garima Pulliam Urea nitrogen [Mass/Vol] 11.0 mg/dL Normal 7.0-18.0 [facility] Comment on above: Performed By: #### B MP, HSTROPN, BNP ####[facility] Tmshlfdrsb[address] [place] [address]Dr. Garima Pulliam Urea nitrogen/Creatinine [Mass ratio] 15.9 mg/mg Normal [facility] Comment on above: Performed By: #### B MP, HSTROPN, BNP ####[facility] Cw[address]unbvcv[address] [place] [address]Dr. Garima Pulliam TROPONIN, HIGH SENSITIVITYon 11-20-2022 HSTROP 8.7 pg/mL Normal 4.0-76.1 [facility] Comment on above: Result Comment: CUT- OFF POINTS HAVE BEEN ESTABLISHED BASED ON THE FOURTH UNIVERSAL DEFINITIONS OF MYOCARDIALINFARCTION. THE UPPER REFERENCE LIMIT (URL) OF TROPONIN, DEFINED THE 99TH PERCENTILE OFcTnI DISTRIBUTION IN A REFERENCE POPULATION, HAS BEEN CONFIRMED THE DECISION THRESHOLDFOR NH DIAGNOSIS. Performed By: #### B MP, HSTROPN, BNP ####[facility] [address]eg[address]ym[address] [place] [address]Dr. Garima Pulliam XR CHEST 1 Von 11-20-2022 XR CHEST 1 V Normal [facility] XR CHEST 1 Von 10-02-2022 XR CHEST 1 V Normal [facility] BNPon 09-29-2022 Natriuretic peptide B (Bld) [Mass/Vol] 107.0 pg/mL Normal <=900.0 [facility] Comment on above: Performed By: #### C MP, BNP, CMADM ####[facility] Totrbbqpev[address] [place] [address]Dr. Garima Pulliam CARDIAC NASH ADMITon 022 CK [Catalytic activity/Vol] 190 U/L Normal 39-308 [facility] Comment on above: Performed By: #### C MP, BNP, CMADM ####[facility] Xhgsouncqj[address] [place] [address]Dr. Garima Heraclio CK.MB [Mass/Vol] 11.11 ng/mL Critically high <=3.60 [facility] Comment on above: Performed By: #### C MP, BNP, CMADM ####[facility] Sy[address]fb[address]ku[address] [place] [address]Dr. Garima Pulliam HSTROP 11.8 pg/mL Normal 4.0-76.1 [...] C MP, BNP, CMADM ####[facility] Searroclcc[address] [place] [address]Dr. Garima Pulliam DORIS 133 ng/mL Critically high 16-96 [facility] Comment on above: Performed By: #### C MP, BNP, CMADM ####[facility] Kw[address]cidq[address] [place] [address]Dr. Garima Heraclio CBC AUTO DIFFon 09-29-2022 BASO # 0.0 103/ul Normal 0.0-0.1 [facility] Comment on above: Performed By: #### C BC ####[facility] Ixomxqyvtl[address] [place] [address]Dr. Garima Heraclio Basophils/100 WBC (Bld) 0.2 % Normal 0.2-2.0 [facility] Comment on above: Performed By: #### C BC ####[facility] Mwsptwhdwj[address] [place] [phone]. Garima Pulliam EO # 0.1 103/ul Normal 0.0-0.7 [facility] Comment on above: Performed By: #### C BC ####[facility] Cvqbwetxlb25[address] [place] [phone]. Garima Pulliam Eosinophils/100 WBC (Bld) 1.4 % Normal 0.9-7.0 [facility] Comment on above: Performed By: #### C BC ####[facility] Hnpunkmxnx9[address] [place], [place] [address]Dr. Garima Pulliam Erythrocyte distribution width (RBC) [Ratio] 13.7 % Normal 11.0-15.0 [facility] Comment on above: Performed By: #### C BC ####[facility] Xtdceukunt45[address] [place], [place] [address]Dr. Garima Pulliam Hematocrit (Bld) [Volume fraction] 45.4 % Normal 42.0-54.0 [facility] Comment on above: Performed By: #### C BC ####[facility] Crxlvxcfey[address] [place], [place] [address]Dr. Garima Pulilam Hemoglobin (Bld) [Mass/Vol] 14.8 g/dL Normal 14.0-18.0 [facility] Comment on above: Performed By: #### C BC ####[facility] Tsanmpicyp2[address] [place], [place] [address]Dr. Garima Pulliam IG # 0.04 10e3/ul Critically high 0.00-0.03 [facility] Comment on above: Performed By: #### C BC ####[facility] Pxqnxamwqh[address] [place], [place] [address]Dr. Garima Pulliam IG % 0.5 % Normal 0.0-0.5 [facility] Comment on above: Performed By: #### C BC ####[facility] Ujrkrbdcjz[address] [place], [place] [address]Dr. Garima Pulliam LYMPH # 1.1 103/ul Critically low 1.2-3.8 [facility] Comment on above: Performed By: #### C BC ####[facility] Dgwanpccok[address] [place] [phone]. Garima Pulliam Lymphocytes/100 WBC (Bld) 12.7 % Critically low 20.5-60.0 [facility] Comment on above: Performed By: #### C BC ####[facility] Zbpfrmefmt[address] [place] [phone]. Chapisrenu Pulliam MANUAL DIFF REQ NO Normal [facility] Comment on above: Performed By: #### C BC ####[facility] Lfzxzq[address] [place], [place] [phone]. Garima Heraclio MCH (RBC) [Entitic mass] 30.0 pg Normal 25.9-34.0 [facility] Comment on above: Performed By: #### C BC ####[facility] Oamselgyer[address] [place], [place] [address]Dr. Garima Heraclio MCHC (RBC) [Mass/Vol] 32.6 g/dL Normal 29.9-35.2 [facility] Comment on above: Performed By: #### C BC ####[facility] Ljghohqyfk[address] [place], [place] [phone]. Garima Heraclio MCV (RBC) [Entitic vol] 91.9 fL Normal 80.0-94.0 [facility] Comment on above: Performed By: #### C BC ####[facility] Wqbsfjbwej[address] [place], [place] [address]Dr. Garima Pulliam MONO # 0.4 103/ul Normal 0.3-0.8 [facility] Comment on above: Performed By: #### C BC ####[facility] Fqvweqxdgn[address] [place], [place] [phone]. Chapisrenu Pulliam Monocytes/100 WBC (Bld) 4.8 % Normal 1.7-12.0 [facility] Comment on above: Performed By: #### C BC ####[facility] Nzspjpegtj[address] [place], [place] [phone]. Garima Pulliam NEUT # 7.1 103/ul Critically high 1.4-6.5 [facility] Comment on above: Performed By: #### C BC ####[facility] Zcsggpidyx3592 [place], [place] [address]As. Garima Pulliam Neutrophils/100 WBC (Bld) 80.4 % Critically high 43.0-75.0 [facility] Comment on above: Performed By: #### C BC ####[facility] Dzwbkisjgv[address] [place] [phone]. Garima Pulliam Platelet mean volume (Bld) [Entitic vol] 9.1 fL Critically low 9.5-13.5 [facility] Comment on above: Performed By: #### C BC ####[facility] Rfdshdvgeg[address] [place] [phone]. Garima Pulliam PLT 200 103/ul Normal 150-450 [facility] Comment on above: Performed By: #### C BC ####[facility] Gjwamtvdlg[address] [place] [phone]. Garima Pulliam RBC 4.94 106/ul Normal 4.70-6.10 [facility] Comment on above: Performed By: #### C BC ####[facility] Poodhqstfd[address] [place] [phone]. Garima Pulliam WBC 8.9 103/ul Normal 4.0-11.0 [facility] Comment on above: Performed By: #### C BC ####[facility] Zvxgshigxn4[address] [place] [phone]. Garima Pulliam Covid-19 PCR (CVDTB)on SARS-CoV-2 (COVID-19) [...] for this test is supported by the [employer] of Health and Human Service's declaration that [...] By: #### C VDTBH ####[facility] Aco[address]xltx[address] [place] [address]Dr. Garima Pulliam LACTATE/LACTIC ACIDon 2021 Lactate [Moles/Vol] 1.7 mmol/L Normal 0.4-1.9 [facility] Comment on above: Performed By: #### L ACT ####[facility] Dapmioxkgz[address] [place], [place] [address]Dr. Garima Pulliam PROF 14(COMP METB)on 022 Albumin [Mass/Vol] 3.8 g/dL Normal 3.4-5.0 [facility] Comment on above: Performed By: #### C MP, BNP, CMADM ####[facility] Sznudvmjws[address] [place], [place] [address]Dr. Garima Pulliam Albumin/Globulin [Mass ratio] 1.5 {ratio} Normal [facility] Comment on above: Performed By: #### C MP, BNP, CMADM ####[facility] K[address]rsgzul4[address] [place] [address]Dr. Garima Pulliam ALP [Catalytic activity/Vol] 62 U/L Normal 46-116 [facility] Comment on above: Performed By: #### C MP, BNP, CMADM ####[facility] Jenrzndkvw18[address] [place] [address]Dr. Garima Pulliam ALT [Catalytic activity/Vol] 37 U/L Normal 16-63 [facility] Comment on above: Performed By: #### C MP, BNP, CMADM ####[facility] Zhftfhtqcr3197 [place] [address]Dr. Garima Pulliam Anion gap [Moles/Vol] 8.0 mmol/L Normal [facility] Comment on above: Performed By: #### C MP, BNP, CMADM ####[facility] Yllokoxzmy[address] [place] [address]Dr. Garima Pulliam AST [Catalytic activity/Vol] 20 U/L Normal 15-37 [facility] Comment on above: Performed By: #### C MP, BNP, CMADM ####[facility] Mfqaovusns72[address] [place] [address]Dr. Garima Pulliam Bilirubin [Mass/Vol] 0.6 mg/dL Normal 0.2-1.0 [facility] Comment on above: Performed By: #### C MP, BNP, CMADM ####[facility] Xkopyfdiwz30[address] [place] [address]Dr. Garima Pulliam Calcium [Mass/Vol] 9.1 mg/dL Normal 8.5-10.1 [facility] Comment on above: Performed By: #### C MP, BNP, CMADM ####[facility] Romajjwoit97[address] [place], [place] [address]Dr. Garima Pulliam Chloride [Moles/Vol] 103 mmol/L Normal 98-107 [facility] Comment on above: Performed By: #### C MP, BNP, CMADM ####[facility] Kfxelxwrov[address] [place], [place] [address]Dr. Garima Pulliam CO2 [Moles/Vol] 31.8 mmol/L Normal 21.0-32.0 [facility] Comment on above: Performed By: #### C MP, BNP, CMADM ####[facility] Ocrccwspjf[address] [place], [place] [address]Dr. Garima Pulliam Creatinine [Mass/Vol] 0.63 mg/dL Critically low 0.70-1.30 [facility] Comment on above: Performed By: #### C MP, BNP, CMADM ####[facility] Cchdlvsumr[address] [place], [place] [address]Dr. Garima Pulliam EGFR-AF NIGERIAN >60 Normal >=60 [facility] Comment on above: Performed By: #### C MP, BNP, CMADM ####[facility] Wjvcxiayuu4[address] [place], [place] [address]Dr. Garima Pulliam EGFR-NON AF NIGERIAN >60 Normal >=60 [facility] Comment on above: Performed By: #### C MP, BNP, CMADM ####[facility] Iyhgxbfmmp4[address] [place] [address]Dr. Garima Pulliam Globulin (S) [Mass/Vol] 2.6 g/dL Normal [facility] Comment on above: Performed By: #### C MP, BNP, CMADM ####[facility] Wkpzgjvbvb5195 [place] [address]Dr. Garima Pulliam Glucose [Mass/Vol] 103 mg/dL Normal 74-106 [facility] Comment on above: Performed By: #### C MP, BNP, CMADM ####[facility] Rtneycmiur87[address] [place] [address]Dr. Garima Pulliam Potassium [Moles/Vol] 3.8 mmol/L Normal 3.5-5.1 [facility] Comment on above: Performed By: #### C MP, BNP, CMADM ####[facility] Pmroicuohu80[address] [place] [address]Dr. Garima Pulliam Protein [Mass/Vol] 6.4 g/dL Normal 6.4-8.2 [facility] Comment on above: Performed By: #### C MP, BNP, CMADM ####[facility] Pbbkxsputw4322 [place] [address]Dr. Garima Pulliam Sodium [Moles/Vol] 139 mmol/L Normal 136-145 [facility] Comment on above: Performed By: #### C MP, BNP, CMADM ####[facility] Yqmqsvawav0418 [place] [address]Dr. Garima Pulliam Urea nitrogen [Mass/Vol] 7.0 mg/dL Normal 7.0-18.0 [facility] Comment on above: Performed By: #### C MP, BNP, CMADM ####[facility] Utpvgjnqce4[address] [place] [address]Dr. Garima Pulliam Urea nitrogen/Creatinine [Mass ratio] 11.1 mg/mg Normal [facility] Comment on above: Performed By: #### C MP, BNP, CMADM ####[facility] Gbkgdxavph47[address] [place] [address]Dr. Garima Pulliam PROTIMEon 09-29-2022 INR Coag (PPP) [Relative time] 1.14 {INR} Normal [facility] Comment on above: Performed By: #### P T, PTT ####[facility] Tkovsefhyx7[address] [place], [place] [address]Dr. Garima Pulliam INR GUIDELINES SEE BELOW Normal [facility] Comment on above: Result Comment: WESLEY RED INR: 2.0 - 3.0 CONDITIONS NOT LISTED BELOW 2.5 - 3.5 FOR PROSTHETIC HEART VALVE REPLACEMENT 2.5 - 3.5 RECURRENT THROMBOSIS Performed By: #### P T, PTT ####[facility] Zqpyigfacv[address] [place], [place] [address]Dr. Garima Pulliam PT Coag (PPP) [Time] 12.2 s Critically high 9.0-11.6 [facility] Comment on above: Performed By: #### P T, PTT ####[facility] Wrmfngryww9[address] [place], [place] [address]Dr. Garima Pulliam PTTon 09-29-2022 aPTT Coag (Bld) [Time] 29.3 s Normal 22.3-36.2 [facility] Comment on above: Performed By: #### P T, PTT ####[facility] Jfiwlxqwjt[address] [place], [place] [address]Dr. Garima Pulliam XR CHEST 1 Von 09-29-2022 XR CHEST 1 V Normal [facility] CBC AUTO DIFFon 09-26-2022 BASO # 0.0 103/ul Normal 0.0-0.1 [facility] Comment on above: Performed By: #### C BC ####[facility] Aorrkjiznw67[address] [place], [place] [address]Dr. Garima Pulliam Basophils/100 WBC (Bld) 0.2 % Normal 0.2-2.0 [facility] Comment on above: Performed By: #### C BC ####[facility] Zjzdzxjmms[address] [place], [place] [address]Dr. Garima Pulliam EO # 0.1 103/ul Normal 0.0-0.7 [facility] Comment on above: Performed By: #### C BC ####[facility] Xpxyvnnexz[address] [place], [place] [address]Dr. Garima Pulliam Eosinophils/100 WBC (Bld) 1.0 % Normal 0.9-7.0 [facility] Comment on above: Performed By: #### C BC ####[facility] Hysqtujlhr8[address] [place], [place] [address]Dr. Garima Pulliam Erythrocyte distribution width (RBC) [Ratio] 13.4 % Normal 11.0-15.0 [facility] Comment on above: Performed By: #### C BC ####[facility] Ssfesdrvgv13[address] [place], [place] [address]Dr. Garima Pulliam Hematocrit (Bld) [Volume fraction] 46.3 % Normal 42.0-54.0 [facility] Comment on above: Performed By: #### C BC ####[facility] Isnnqnvqmx022[address] [place], [place] [address]Dr. Garima Pulliam Hemoglobin (Bld) [Mass/Vol] 15.3 g/dL Normal 14.0-18.0 [facility] Comment on above: Performed By: #### C BC ####[facility] Lsmkchoarf[address] [place], [place] [address]Dr. Garima Pulliam IG # 0.05 10e3/ul Critically high 0.00-0.03 [facility] Comment on above: Performed By: #### C BC ####[facility] Atsozuxdcn[address] [place], [place] [address]Dr. Garima Pulliam IG % 0.4 % Normal 0.0-0.5 [facility] Comment on above: Performed By: #### C BC ####[facility] Zegdkirruw[address] [place], [place] [address]Dr. Garima Pulliam LYMPH # 1.7 103/ul Normal 1.2-3.8 [facility] Comment on above: Performed By: #### C BC ####[facility] Rcomatbfop1823[address] [place], [place] [address]Dr. Garima Pulliam Lymphocytes/100 WBC (Bld) 12.7 % Critically low 20.5-60.0 [facility] Comment on above: Performed By: #### C BC ####[facility] Delcypbvvw[address] [place] [address]DrAdalberto Pulliam MANUAL DIFF REQ NO Normal [facility] Comment on above: Performed By: #### C BC ####[facility] Agfaulzbzw2437 [place] [address]Dr. Garima Pulliam MCH (RBC) [Entitic mass] 30.1 pg Normal 25.9-34.0 [facility] Comment on above: Performed By: #### C BC ####[facility] Xpbbtuosmg[address] [place], [place] [address]Dr. Garima Pulliam MCHC (RBC) [Mass/Vol] 33.0 g/dL Normal 29.9-35.2 [facility] Comment on above: Performed By: #### C BC ####[facility] Yajvcevlgp3245[address] [place], [place] [address]DrAdalberto Pulliam MCV (RBC) [Entitic vol] 91.1 fL Normal 80.0-94.0 [facility] Comment on above: Performed By: #### C BC ####[facility] Gmelxexiwd40[address] [place], [place] [address]DrAdalberto Pulliam MONO # 0.9 103/ul Critically high 0.3-0.8 [facility] Comment on above: Performed By: #### C BC ####[facility] Grqoytdexm69[address] [place], [place] [address]DrAdalberto Pulliam Monocytes/100 WBC (Bld) 7.0 % Normal 1.7-12.0 [facility] Comment on above: Performed By: #### C BC ####[facility] Xhkhciymey364[address] [place], [place] [address]DrAdalberto Pulliam NEUT # 10.4 103/ul Critically high 1.4-6.5 [facility] Comment on above: Performed By: #### C BC ####[facility] Ffwpojvkeo456[address] [place], [place] [address]DrAdalberto Pulliam Neutrophils/100 WBC (Bld) 78.7 % Critically high 43.0-75.0 [facility] Comment on above: Performed By: #### C BC ####[facility] Mtwlrhqcuo24[address] [place] [address]Dr. Garima Pulliam Platelet mean volume (Bld) [Entitic vol] 8.9 fL Critically low 9.5-13.5 [facility] Comment on above: Performed By: #### C BC ####[facility] Viuupjhfok79[address] [place] [address]Dr. Garima Pulliam PLT 195 103/ul Normal 150-450 [facility] Comment on above: Performed By: #### C BC ####[facility] Onhgiftxrl13[address] [place], [place] [address]Dr. Garima Pulliam RBC 5.08 106/ul Normal 4.70-6.10 [facility] Comment on above: Performed By: #### C BC ####[facility] Ctxavpovvp16[address] [place], [place] [address]Dr. Garima Pulliam WBC 13.2 103/ul Critically high 4.0-11.0 [facility] Comment on above: Performed By: #### C BC ####[facility] Zxevbaafeo7[address] [place], [place] [address]Dr. Garima Pulliam PROF 14(COMP METB)on 022 Albumin [Mass/Vol] 3.5 g/dL Normal 3.4-5.0 [facility] Comment on above: Performed By: #### C DAVID HSTROPN ####[facility] Irnexvdjyw7[address] [place] [address]Dr. Garima Pulliam Albumin/Globulin [Mass ratio] 1.2 {ratio} Normal [facility] Comment on above: Performed By: #### C ARFAT HERNANDEZTROPN ####[facility] Xjquhditfl9370 [place] [address]Dr. Garima Pulliam ALP [Catalytic activity/Vol] 71 U/L Normal 46-116 [facility] Comment on above: Performed By: #### C DAVID HSTROPN ####[facility] Bgbderxusc9060 [place] [address]Dr. Garima Pulliam ALT [Catalytic activity/Vol] 37 U/L Normal 16-63 [facility] Comment on above: Performed By: #### C DAVID, HSTROPN ####[facility] Wgmscsiwvl5426 [place] [address]Dr. Garima Pulliam Anion gap [Moles/Vol] 4.8 mmol/L Normal [facility] Comment on above: Performed By: #### C DAVID, HSTROPN ####[facility] Wfjrtyrpuv[address] [place], [place] [address]Dr. Garima Pulliam AST [Catalytic activity/Vol] 21 U/L Normal 15-37 [facility] Comment on above: Performed By: #### C DAVID, HSTROPN ####[facility] Nxfsjfzrec[address] [place], [place] [address]Dr. Garima Pulliam Bilirubin [Mass/Vol] 0.3 mg/dL Normal 0.2-1.0 [facility] Comment on above: Performed By: #### C DAVID, HSTROPN ####[facility] Vywmmyrfym50[address] [place] [address]Dr. Garima Pulliam Calcium [Mass/Vol] 8.9 mg/dL Normal 8.5-10.1 [facility] Comment on above: Performed By: #### C DAVID, HSTROPN ####[facility] Opovrkfjar33[address] [place] [address]Dr. Garima Pulliam Chloride [Moles/Vol] 106 mmol/L Normal 98-107 [facility] Comment on above: Performed By: #### C DAVID, HSTROPN ####[facility] Droavplkhd0196 [place] [address]Dr. Garima Pulliam CO2 [Moles/Vol] 29.8 mmol/L Normal 21.0-32.0 [facility] Comment on above: Performed By: #### C DAVID, HSTROPN ####[facility] Vnjbhyytwj6[address] [place] [address]Dr. Garima Pulliam Creatinine [Mass/Vol] 0.68 mg/dL Critically low 0.70-1.30 [facility] [facility] Comment on above: Performed By: #### C MP, HSTROPN ####[facility] Ndmjobvxks[address] [place] [address]Dr. Garima Pulliam EGFR-AF NIGERIAN >60 Normal >=60 [facility] Comment on above: Performed By: #### C MP, HSTROPN ####[facility] Akgbccyxjo07[address] [place] [address]Dr. Chapislan Pulliam EGFR-NON AF NIGERIAN >60 Normal >=60 [facility] Comment on above: Performed By: #### C MP, HSTROPN ####[facility] Kfamzgpotn[address] [place] [address]Dr. Garima Pulliam Globulin (S) [Mass/Vol] 2.8 g/dL Normal [facility] Comment on above: Performed By: #### C MP, HSTROPN ####[facility] Dujotzlpjj6[address] [place] [address]Dr. Garima Pulliam Glucose [Mass/Vol] 133 mg/dL Critically high 74-106 [facility] Comment on above: Performed By: #### C MP, HSTROPN ####[facility] Lgevjyucjw7[address] [place] [address]Dr. Chapisrenu Pulliam Potassium [Moles/Vol] 3.6 mmol/L Normal 3.5-5.1 [facility] Comment on above: Performed By: #### C MP, HSTROPN ####[facility] Pipabvzppx3[address] [place] [address]Dr. Chapisrenu Pulliam Protein [Mass/Vol] 6.3 g/dL Critically low 6.4-8.2 [facility] Comment on above: Performed By: #### C MP, HSTROPN ####[facility] Oudenbzaij[address] [place], [place] [address]Dr. Chapisrenu Pulliam Sodium [Moles/Vol] 137 mmol/L Normal 136-145 [facility] Comment on above: Performed By: #### C MP, HSTROPN ####[facility] Vuqisomkxs[address] [place], [place] [address]Dr. Garima Pulliam Urea nitrogen [Mass/Vol] 15.0 mg/dL Normal 7.0-18.0 [facility] Comment on above: Performed By: #### C DAVID HSTROPN ####[facility] Qdxigfscfn64[address] [place] [address]Dr. Chapisrenu Pulliam Urea nitrogen/Creatinine [Mass ratio] 22.1 mg/mg Normal [facility] Comment on above: Performed By: #### C DAVID HSTROPN ####[facility] Izagriruva[address] [place] [address]Dr. Garima Heraclio TROPONIN, HIGH SENSITIVITYon 09-26-2022 HSTROP [...] #### C DAVID HSTROPN ####[facility] Ijtgfdxfkx5[address] [place] [address]Dr. Chapisrenu Pulliam XR CHEST 1 Von 09-26-2022 XR CHEST 1 V Normal [facility] XR CHEST 1 Von 09-16-2022 XR CHEST 1 V Normal [facility] CBC AUTO DIFFon 09-15-2022 BASO # 0.0 103/ul Normal 0.0-0.1 [facility] Comment on above: Performed By: #### C BC ####[facility] Cipwrnwazp[address] [place] [address]Dr. Garima Heraclio Basophils/100 WBC (Bld) 0.1 % Critically low 0.2-2.0 [facility] Comment on above: Performed By: #### C BC ####[facility] Xduihipeeo70[address] [place] [address]Dr. Garima Pulliam EO # 0.0 103/ul Normal 0.0-0.7 [facility] Comment on above: Performed By: #### C BC ####[facility] Nuixznphhl3674 [place] [address]Dr. Garima Pulliam Eosinophils/100 WBC (Bld) 0.1 % Critically low 0.9-7.0 [facility] Comment on above: Performed By: #### C BC ####[facility] Wvvvsjolzi1697 [place] [address]Dr. Garima Pulliam Erythrocyte distribution width (RBC) [Ratio] 14.1 % Normal 11.0-15.0 [facility] Comment on above: Performed By: #### C BC ####[facility] Mdnddexqcv64[address] [place], [place] [address]Dr. Garima Pulliam Hematocrit (Bld) [Volume fraction] 46.1 % Normal 42.0-54.0 [facility] Comment on above: Performed By: #### C BC ####[facility] Zxmpzptyfm3[address] [place], [place] [address]Dr. Garima Pulliam Hemoglobin (Bld) [Mass/Vol] 15.0 g/dL Normal 14.0-18.0 [facility] Comment on above: Performed By: #### C BC ####[facility] Ljzkdihjmg4[address] [place], [place] [address]Dr. Garima Pulliam IG # 0.03 10e3/ul Normal 0.00-0.03 [facility] Comment on above: Performed By: #### C BC ####[facility] Migkuflfku8[address] [place], [place] [address]Dr. Garima Pulliam IG % 0.3 % Normal 0.0-0.5 [facility] Comment on above: Performed By: #### C BC ####[facility] Oohpnsznjn024[address] [place], [place] [address]Dr. Garima Pulliam LYMPH # 0.6 103/ul Critically low 1.2-3.8 [facility] Comment on above: Performed By: #### C BC ####[facility] Xeuhzyjzzr[address] [place], [place] [address]Dr. Garima Pulliam Lymphocytes/100 WBC (Bld) 5.8 % Critically low 20.5-60.0 [facility] Comment on above: Performed By: #### C BC ####[facility] Vpgtmiehuu[address] [place] [id number]. Garima Pulliam MANUAL DIFF REQ NO Normal [facility] Comment on above: Performed By: #### C BC ####[facility] Pgatvizpbu7062 [place] [phone]. Garima Pulliam MCH (RBC) [Entitic mass] 30.2 pg Normal 25.9-34.0 [facility] Comment on above: Performed By: #### C BC ####[facility] Gjiebjmwjl10[address] [place] [address]Dr. Garima Pulliam MCHC (RBC) [Mass/Vol] 32.5 g/dL Normal 29.9-35.2 [facility] Comment on above: Performed By: #### C BC ####[facility] Chnclshvpt06[address] [place] [address]Dr. Garima Pulliam MCV (RBC) [Entitic vol] 92.8 fL Normal 80.0-94.0 [facility] Comment on above: Performed By: #### C BC ####[facility] Pikjgmembc8362 [place] [address]Dr. Garima Heracloi MONO # 0.3 103/ul Normal 0.3-0.8 [facility] Comment on above: Performed By: #### C BC ####[facility] Rmjlloqmdr8304 [place] [phone]. Garima Heraclio Monocytes/100 WBC (Bld) 3.2 % Normal 1.7-12.0 [facility] Comment on above: Performed By: #### C BC ####[facility] Dhhpvhravu8[address] [place] [phone]. Garima Pulliam NEUT # 9.8 103/ul Critically high 1.4-6.5 [facility] Comment on above: Performed By: #### C BC ####[facility] Uxeqkpejpn8077 [place] [phone]. Garima Pulliam Neutrophils/100 WBC (Bld) 90.5 % Critically high 43.0-75.0 [facility] Comment on above: Performed By: #### C BC ####[facility] Nwopwcucmp8997 [place] [phone]. Garima Pulliam Platelet mean volume (Bld) [Entitic vol] 9.4 fL Critically low 9.5-13.5 [facility] Comment on above: Performed By: #### C BC ####[facility] Gllsshnsbq6334 [place] [phone]. Garima Pulliam PLT 208 103/ul Normal 150-450 [facility] Comment on above: Performed By: #### C BC ####[facility] Tejxwdunfs84[address] [place] [address]Dr. Garima Pulliam RBC 4.97 106/ul Normal 4.70-6.10 [facility] Comment on above: Performed By: #### C BC ####[facility] Dtpfahutca4727 [place] [address]Dr. Garima Pulliam WBC 10.8 103/ul Normal 4.0-11.0 [facility] Comment on above: Performed By: #### C BC ####[facility] Sosnmdriud3058 [place] [address]Dr. Garima Pulliam PROF 14(COMP METB)on 022 Albumin [Mass/Vol] 4.0 g/dL Normal 3.4-5.0 [facility] Comment on above: Performed By: #### C MP ####[facility] Agvcxmhqgt9731 [place] [address]Dr. Garima Pulliam Albumin/Globulin [Mass ratio] 1.5 {ratio} Normal [facility] Comment on above: Performed By: #### C MP ####[facility] Vuhjsfjrwo4236 [place] [address]Dr. Garima Pulliam ALP [Catalytic activity/Vol] 73 U/L Normal 46-116 [facility] Comment on above: Performed By: #### C MP ####[facility] Htneasmihk0966 [place] [address]Dr. Garima Pulliam ALT [Catalytic activity/Vol] 42 U/L Normal 16-63 [facility] Comment on above: Performed By: #### C MP ####[facility] Vhghcckyod5772 [place] [address]Dr. Garima Pulliam Anion gap [Moles/Vol] 9.1 mmol/L Normal [facility] Comment on above: Performed By: #### C MP ####[facility] Xbxtgnlcam[address] [place], [place] [address]Dr. Garima Pulliam AST [Catalytic activity/Vol] 28 U/L Normal 15-37 [facility] Comment on above: Performed By: #### C MP ####[facility] Bmaxjdsxmd12[address] [place], [place] [address]Dr. Garima Pulliam Bilirubin [Mass/Vol] 0.6 mg/dL Normal 0.2-1.0 [facility] Comment on above: Performed By: #### C MP ####[facility] Rsfdtycatx75[address] [place], [place] [address]Dr. Garima Pulliam Calcium [Mass/Vol] 8.6 mg/dL Normal 8.5-10.1 [facility] Comment on above: Performed By: #### C MP ####[facility] Augvlbspcq[address] [place], [place] [address]Dr. Garima Pulliam Chloride [Moles/Vol] 105 mmol/L Normal 98-107 [facility] Comment on above: Performed By: #### C MP ####[facility] Ojytmugvwu[address] [place], [place] [address]Dr. Garima Pulliam CO2 [Moles/Vol] 28.5 mmol/L Normal 21.0-32.0 [facility] Comment on above: Performed By: #### C MP ####[facility] Ogrlxinrhu69[address] [place], [place] [address]Dr. Garima Heraclio Creatinine [Mass/Vol] 0.78 mg/dL Normal 0.70-1.30 [facility] Comment on above: Performed By: #### C MP ####[facility] Ztkkmubppg5155[address] [place], [place] [address]Dr. Chapisrenu Heraclio EGFR-AF NIGERIAN >60 Normal >=60 [facility] Comment on above: Performed By: #### C MP ####[facility] Jizafmilos[address] [place], [place] [address]Dr. Garima Pulliam EGFR-NON AF NIGERIAN >60 Normal >=60 [facility] Comment on above: Performed By: #### C MP ####[facility] Pfssynomjw8322 [place] [address]Dr. Garima Pulliam Globulin (S) [Mass/Vol] 2.7 g/dL Normal [facility] Comment on above: Performed By: #### C MP ####[facility] Caojbcrmvl3864 [place] [address]Dr. Garima Pulliam Glucose [Mass/Vol] 220 mg/dL Critically high 74-106 [facility] Comment on above: Performed By: #### C MP ####[facility] Iqnjmkosdt5782 [place] [address]Dr. Garima Pulliam Potassium [Moles/Vol] 3.6 mmol/L Normal 3.5-5.1 [facility] Comment on above: Performed By: #### C MP ####[facility] Vunznllbjn[address] [place], [place] [address]Dr. Garima Pulliam Protein [Mass/Vol] 6.7 g/dL Normal 6.4-8.2 [facility] Comment on above: Performed By: #### C MP ####[facility] Ejmcyhvycq392[address] [place], [place] [address]Dr. Garima Pulliam Sodium [Moles/Vol] 139 mmol/L Normal 136-145 [facility] Comment on above: Performed By: #### C MP ####[facility] Kuyrhuhyay99[address] [place], [place] [address]Dr. Garima Pulliam Urea nitrogen [Mass/Vol] 11.0 mg/dL Normal 7.0-18.0 [facility] Comment on above: Performed By: #### C MP ####[facility] Xiichfggcu6[address] [place], [place] [address]Dr. Garima Pulliam Urea nitrogen/Creatinine [Mass ratio] 14.1 mg/mg Normal [facility] Comment on above: Performed By: #### C MP ####[facility] Zcniutzknt[address] [place], [place] [address]Dr. Garima Pulliam CARDIAC NASH 3-6on 2 CK [Catalytic activity/Vol] 240 U/L Normal 39-308 [facility] Comment on above: Performed By: #### C MREP ####[facility] Xsqqgesegm8181 [place] [address]Dr. Garima Pulliam CK.MB [Mass/Vol] 10.38 ng/mL Critically high <=3.60 [facility] Comment on above: Performed By: #### C MREP ####[facility] Tnynmkpyew5821 [place] [address]Dr. Garima Pulliam HSTROP 18.5 pg/mL Normal 4.0-76.1 [facility] Comment on above: Result Comment: CUT- OFF POINTS HAVE BEEN ESTABLISHED BASED ON THE FOURTH UNIVERSAL DEFINITIONS OF MYOCARDIALINFARCTION. THE UPPER REFERENCE LIMIT (URL) OF TROPONIN, DEFINED THE 99TH PERCENTILE OFcTnI DISTRIBUTION IN A REFERENCE POPULATION, HAS BEEN CONFIRMED THE DECISION THRESHOLDFOR [place] DIAGNOSIS. Performed By: #### C MREP ####[facility] Panpiukwdc7748 [place] [address]Dr. Garima Pulliam CK [Catalytic activity/Vol] 257 U/L Normal 39-308 [facility] Comment on above: Performed By: #### C MREP ####[facility] Dxxpyjabnm6[address] [place], [place] [address]Dr. Garima Pulliam CK.MB [Mass/Vol] 9.89 ng/mL Critically high <=3.60 [facility] Comment on above: Performed By: #### C MREP ####[facility] Aitqrnaomn[address] [place], [place] [address]Dr. Garima Pulliam HSTROP 16.9 pg/mL Normal 4.0-76.1 [facility] Comment on above: Result Comment: CUT- OFF POINTS HAVE BEEN ESTABLISHED BASED ON THE FOURTH UNIVERSAL DEFINITIONS OF MYOCARDIALINFARCTION. THE UPPER REFERENCE LIMIT (URL) OF TROPONIN, DEFINED THE 99TH PERCENTILE OFcTnI DISTRIBUTION IN A REFERENCE POPULATION, HAS BEEN CONFIRMED THE DECISION THRESHOLDFOR [place] DIAGNOSIS. Performed By: #### C MREP ####[facility] Knsyfacbxw8703 [place] [address]Dr. Garima Heraclio CBC AUTO DIFFon 10-22-2022 BASO # 0.0 103/ul Normal 0.0-0.1 [facility] Comment on above: Performed By: #### C BC ####[facility] Ksazucehfl5352 [place] [phone]. Garima Pulliam Basophils/100 WBC (Bld) 0.1 % Critically low 0.2-2.0 [facility] Comment on above: Performed By: #### C BC ####[facility] Aqfnnmbues9989 [place] [address]Dr. Garima Pulliam EO # 0.0 103/ul Normal 0.0-0.7 [facility] Comment on above: Performed By: #### C BC ####[facility] Scjosenosk9[address] [place], [place] [address]Dr. Chapisrenu Heraclio Eosinophils/100 WBC (Bld) 0.0 % Critically low 0.9-7.0 [facility] Comment on above: Performed By: #### C BC ####[facility] Naqcnvuobs[address] [place], [place] [address]Dr. Garima Pulliam Erythrocyte distribution width (RBC) [Ratio] 13.6 % Normal 11.0-15.0 [facility] Comment on above: Performed By: #### C BC ####[facility] Ehrxdivxln312[address] [place], [place] [address]Dr. Garima Pulliam Hematocrit (Bld) [Volume fraction] 48.2 % Normal 42.0-54.0 [facility] Comment on above: Performed By: #### C BC ####[facility] Ceevpivrwa[address] [place], [place] [address]Dr. Garima Pulliam Hemoglobin (Bld) [Mass/Vol] 16.0 g/dL Normal 14.0-18.0 [facility] Comment on above: Performed By: #### C BC ####[facility] Pakxfhmoix36[address] [place], [place] [address]Dr. Chapisrenu Heraclio IG # 0.02 10e3/ul Normal 0.00-0.03 [facility] Comment on above: Performed By: #### C BC ####[facility] Dkrnpkjyfw3200 [place] [phone]. Garima Pulliam IG % 0.3 % Normal 0.0-0.5 [facility] Comment on above: Performed By: #### C BC ####[facility] Sqzrkmnndg2997 [place] [address]Dr. Garima Heraclio LYMPH # 0.5 103/ul Critically low 1.2-3.8 [facility] Comment on above: Performed By: #### C BC ####[facility] Meqsidvlod8563 [place] [address]Dr. Garima Heraclio Lymphocytes/100 WBC (Bld) 7.7 % Critically low 20.5-60.0 [facility] Comment on above: Performed By: #### C BC ####[facility] Rcuvnfcyzg65[address] [place], [place] [address]Dr. Chapisrenu Pulliam MANUAL DIFF REQ NO Normal [facility] Comment on above: Performed By: #### C BC ####[facility] Jopgusbtjw5[address] [place], [place] [address]Dr. Garima Heraclio MCH (RBC) [Entitic mass] 30.6 pg Normal 25.9-34.0 [facility] Comment on above: Performed By: #### C BC ####[facility] Njmscjuclj3[address] [place], [place] [address]Dr. Garima Pulliam MCHC (RBC) [Mass/Vol] 33.2 g/dL Normal 29.9-35.2 [facility] Comment on above: Performed By: #### C BC ####[facility] F[address]ijbzlpkz40[address] [place], [place] [address]Dr. Garima Heraclio MCV (RBC) [Entitic vol] 92.2 fL Normal 80.0-94.0 [facility] Comment on above: Performed By: #### C BC ####[facility] Ryjqxpiazp[address] [place], [place] [address]Dr. Garima Pulliam MONO # 0.0 103/ul Critically low 0.3-0.8 [facility] Comment on above: Performed By: #### C BC ####[facility] Wzhsmptpku4207 [place] [phone]. Garima Pulliam Monocytes/100 WBC (Bld) 0.4 % Critically low 1.7-12.0 [facility] Comment on above: Performed By: #### C BC ####[facility] Gdhxwtaywv8526 [place] [phone]. Garima Pulliam NEUT # 6.2 103/ul Normal 1.4-6.5 [facility] Comment on above: Performed By: #### C BC ####[facility] Qaydmdcpka3418 [place] [address]Dr. Garima Pulliam Neutrophils/100 WBC (Bld) 91.5 % Critically high 43.0-75.0 [facility] Comment on above: Performed By: #### C BC ####[facility] Btmlsvgbhy2019 [place] [address]Dr. Garima Pulliam Platelet mean volume (Bld) [Entitic vol] 8.7 fL Critically low 9.5-13.5 [facility] Comment on above: Performed By: #### C BC ####[facility] Rzrrqzkydt85[address] [place] [address]Dr. Garima Pulliam PLT 179 103/ul Normal 150-450 [facility] Comment on above: Performed By: #### C BC ####[facility] Omuaozjsjc6622 [place] [phone]. Garima Pulliam RBC 5.23 106/ul Normal 4.70-6.10 [facility] Comment on above: Performed By: #### C BC ####[facility] Kixlksrafy0906 [place] [address]Dr. Garima Pulliam WBC 6.7 103/ul Normal 4.0-11.0 [facility] Comment on above: Performed By: #### C BC ####[facility] Nijrzrqqob30[address] [place] [address]Dr. Garima Pulliam PROF CHEM 8 (BAS METB)on Anion gap [Moles/Vol] 12.1 mmol/L Normal [facility] Comment on above: Performed By: #### B MP ####[facility] Mitvzqtdeg9421 [place] [phone]. Garima Pulliam Calcium [Mass/Vol] 8.7 mg/dL Normal 8.5-10.1 [facility] Comment on above: Performed By: #### B MP ####[facility] Tfxvoqcoee3287 [place] [phone]. Garima Pulliam Chloride [Moles/Vol] 105 mmol/L Normal 98-107 [facility] Comment on above: Performed By: #### B MP ####[facility] Rpxzmibdog3502 [place] [phone]. Garima Pulliam CO2 [Moles/Vol] 25.5 mmol/L Normal 21.0-32.0 [facility] Comment on above: Performed By: #### B MP ####[facility] Rucecmkjsg6084 [place] [address]Dr. Garima Pulliam Creatinine [Mass/Vol] 0.63 mg/dL Critically low 0.70-1.30 [facility] Comment on above: Performed By: #### B MP ####[facility] Hvhorvaxfc5772 [place] [address]Dr. Garima Pulliam EGFR-AF NIGERIAN >60 Normal >=60 [facility] Comment on above: Performed By: #### B MP ####[facility] Cnrijtuvac30[address] [place] [address]Dr. Garima Pulliam EGFR-NON AF NIGERIAN >60 Normal >=60 [facility] Comment on above: Performed By: #### B MP ####[facility] Lizktqdjwg4416 [place] [address]Dr. Garima Pulliam Glucose [Mass/Vol] 162 mg/dL Critically high 74-106 [facility] Comment on above: Performed By: #### B MP ####[facility] Fpkzdriepx[address] [place], [place] [address]Dr. Garima Pulliam Potassium [Moles/Vol] 3.6 mmol/L Normal 3.5-5.1 [facility] Comment on above: Performed By: #### B MP ####[facility] Yxkljadrwd50[address] [place], [place] [address]Dr. Garima Pulliam Sodium [Moles/Vol] 139 mmol/L Normal 136-145 [facility] Comment on above: Performed By: #### B DAVID ####[facility] Qvktdeivbz5987 [place] [address]Dr. Garima Pulliam Urea nitrogen [Mass/Vol] 9.0 mg/dL Normal 7.0-18.0 [facility] Comment on above: Performed By: #### B DAVID ####[facility] Wctztwvvss8242 [place] [address]Dr. Garima Pulliam Urea nitrogen/Creatinine [Mass ratio] 14.3 mg/mg Normal [facility] Comment on above: Performed By: #### B DAVID ####[facility] Jsrwplywyz0554 [place] [address]Dr. Chapisrenu Pulliam CARDIAC NASH ADMITon 09-12- 022 CK [Catalytic activity/Vol] 304 U/L Normal 39-308 [facility] Comment on above: Performed By: #### B NANCY HERNANDEZ ####[facility] Zcvzckfyym7274 [place] [address]Dr. Garima Pulliam CK.MB [Mass/Vol] 11.81 ng/mL Critically high <=3.60 [facility] Comment on above: Performed By: #### B NANCY HERNANDEZ ####[facility] Ywcoqgprhf4305 [place] [address]Dr. Garima Heraclio HSTROP 13.3 pg/mL Normal 4.0-76.1 [facility] Comment on above: Result Comment: CUT- OFF POINTS HAVE BEEN ESTABLISHED BASED ON THE FOURTH UNIVERSAL DEFINITIONS OF MYOCARDIALINFARCTION. THE UPPER REFERENCE LIMIT (URL) OF TROPONIN, DEFINED THE 99TH PERCENTILE OFcTnI DISTRIBUTION IN A REFERENCE POPULATION, HAS BEEN CONFIRMED THE DECISION THRESHOLDFOR [place] DIAGNOSIS. Performed By: #### B NANCY HERNANDEZ ####[facility] Ulnyypthnr1048 [place] [address]Dr. Garima Pulliam DORIS 133 ng/mL Critically high 16-96 [facility] Comment on above: Performed By: #### B NANCY HERNANDEZ ####[facility] Ldahlucvaw0191 [place] [address]Dr. Garima Pulliam CBC AUTO DIFFon 09-12-2022 BASO # 0.0 103/ul Normal 0.0-0.1 [facility] Comment on above: Performed By: #### C BC ####[facility] Tgztdugqtf[address] [place], [place] [id number]. Garima Heraclio Basophils/100 WBC (Bld) 0.2 % Normal 0.2-2.0 [facility] Comment on above: Performed By: #### C BC ####[facility] Tetiqtwewq01[address] [place], [place] [address]Dr. Garima Heraclio EO # 0.2 103/ul Normal 0.0-0.7 [facility] Comment on above: Performed By: #### C BC ####[facility] Dcgvsjhhmx4[address] [place], [place] [address]Dr. Chapisrenu Pulliam Eosinophils/100 WBC (Bld) 1.3 % Normal 0.9-7.0 [facility] Comment on above: Performed By: #### C BC ####[facility] Ezwtfgpdrt[address] [place], [place] [address]Dr. Garima Pulliam Erythrocyte distribution width (RBC) [Ratio] 13.7 % Normal 11.0-15.0 [facility] Comment on above: Performed By: #### C BC ####[facility] Naqczobrru[address] [place], [place] [address]Dr. Garima Pulliam Hematocrit (Bld) [Volume fraction] 46.4 % Normal 42.0-54.0 [facility] Comment on above: Performed By: #### C BC ####[facility] Rowvsvdlhs[address] [place], [place] [address]Dr. Garima Pulliam Hemoglobin (Bld) [Mass/Vol] 15.7 g/dL Normal 14.0-18.0 [facility] Comment on above: Performed By: #### C BC ####[facility] Hxvjjyarso[address] [place], [place] [address]Dr. Garima Pulliam IG # 0.04 10e3/ul Critically high 0.00-0.03 [facility] Comment on above: Performed By: #### C BC ####[facility] Fnoqigspca6701 [place] [phone]. Garima Pulliam IG % 0.3 % Normal 0.0-0.5 [facility] Comment on above: Performed By: #### C BC ####[facility] Xvduyfefjp1978 [place] [phone]. Gairma Pulliam LYMPH # 1.7 103/ul Normal 1.2-3.8 [facility] Comment on above: Performed By: #### C BC ####[facility] Rjgufhsrjq6589 [place] [phone]. Garima Pulliam Lymphocytes/100 WBC (Bld) 11.5 % Critically low 20.5-60.0 [facility] Comment on above: Performed By: #### C BC ####[facility] Cjtwuitpel1657 [place] [phone]. Garima Pulliam MANUAL DIFF REQ NO Normal [facility] Comment on above: Performed By: #### C BC ####[facility] Bwoawladjl[address] [place] [id number]. Garima Pulliam MCH (RBC) [Entitic mass] 31.0 pg Normal 25.9-34.0 [facility] Comment on above: Performed By: #### C BC ####[facility] [address] [place] [id number]. Garima Pulliam MCHC (RBC) [Mass/Vol] 33.8 g/dL Normal 29.9-35.2 [facility] Comment on above: Performed By: #### C BC ####[facility] [address]dm[address] [place] [id number]. Garima Pulliam MCV (RBC) [Entitic vol] 91.7 fL Normal 80.0-94.0 [facility] Comment on above: Performed By: #### C BC ####[facility] Bt[address]kco[address] [place] [id number]. Garima Heraclio MONO # 0.8 103/ul Normal 0.3-0.8 [facility] Comment on above: Performed By: #### C BC ####[facility] [address]qpqep[address] [place] [id number]. Garima Pulliam Monocytes/100 WBC (Bld) 5.2 % Normal 1.7-12.0 [facility] Comment on above: Performed By: #### C BC ####[facility] Injrigxvsh[address] [place] [id number]. Garima Pulliam NEUT # 11.7 103/ul Critically high 1.4-6.5 [facility] Comment on above: Performed By: #### C BC ####[facility] Aibtrnhdzc[address] [place] [id number]. Garima Pulliam Neutrophils/100 WBC (Bld) 81.5 % Critically high 43.0-75.0 [facility] Comment on above: Performed By: #### C BC ####[facility] [address] [place] [address]Dr. Garima Pulliam Platelet mean volume (Bld) [Entitic vol] 8.6 fL Critically low 9.5-13.5 [facility] Comment on above: Performed By: #### C BC ####[facility] [address]fcqbizf38[address] [place] [id number]. Garima Pulliam PLT 191 103/ul Normal 150-450 [facility] Comment on above: Performed By: #### C BC ####[facility] Ekw[address]ranss[address] [place], [place] [id number]. Garima Pulliam RBC 5.06 106/ul Normal 4.70-6.10 [facility] Comment on above: Performed By: #### C BC ####[facility] [address] [place], [place] [id number]. Garima Pulliam WBC 14.4 103/ul Critically high 4.0-11.0 [facility] Comment on above: Performed By: #### C BC ####[facility] [address] [place], [place] [address]Dr. Garima Pulliam [facility]24 SARS-CoV-2 (COVID-19) RNA MARIE+probe Ql (Unsp spec) Not detected Normal NOT DETECTED [facility] Comment on above: Result Comment: When [...] for this test is supported by the Supply Chain Buyer of Health and Human Service's declaration that [...] By: #### C VDTBH ####[facility] [address] [place], [place] [address]Dr. Garima Pulliam LACTATE/LACTIC ACIDon 2021 Lactate [Moles/Vol] 1.0 mmol/L Normal 0.4-1.9 [facility] Comment on above: Performed By: #### L ACT ####[facility] [address] [place], [place] [address]Dr. Garima Pulliam PROF CHEM 8 (BAS METB)on Anion gap [Moles/Vol] 11.6 mmol/L Normal [facility] Comment on above: Performed By: #### B NANCY HERNANDEZ ####[facility] [address] [place] [address]Dr. Garima Pulliam Calcium [Mass/Vol] 9.2 mg/dL Normal 8.5-10.1 [facility] Comment on above: Performed By: #### B NANCY HERNANDEZ ####[facility] [address] [place] [address]Dr. Garima Pulliam Chloride [Moles/Vol] 105 mmol/L Normal 98-107 [facility] Comment on above: Performed By: #### B MP, CMADM ####[facility] [address]uiotfdpl4[address] [place] [id number]. Garima Pulliam CO2 [Moles/Vol] 25.9 mmol/L Normal 21.0-32.0 [facility] Comment on above: Performed By: #### B DAVID, CMADM ####[facility] [address] [place] [address]Dr. Garima Pulliam Creatinine [Mass/Vol] 0.72 mg/dL Normal 0.70-1.30 [facility] Comment on above: Performed By: #### B DAVID, CMADM ####[facility] [address] [place] [id number]. Garima Pulliam EGFR-AF NIGERIAN >60 Normal >=60 [facility] Comment on above: Performed By: #### B DAVID, CMADM ####[facility] [address] [place] [address]Dr. Chapisrenu Pulliam EGFR-NON AF NIGERIAN >60 Normal >=60 [facility] Comment on above: Performed By: #### B DAVID, CMAANA ROSA ####[facility] [address] [place] [address]Dr. Garima Pulliam Glucose [Mass/Vol] 111 mg/dL Critically high 74-106 [facility] Comment on above: Performed By: #### B DAVID, CMADM ####[facility] [address] [place] [address]Dr. Chapisrenu Pulliam Potassium [Moles/Vol] 3.5 mmol/L Normal 3.5-5.1 [facility] Comment on above: Performed By: #### B DAVID, CMADM ####[facility] [address]ur[address] [place] [address]Dr. Chapisrenu Pulliam Sodium [Moles/Vol] 139 mmol/L Normal 136-145 [facility] Comment on above: Performed By: #### B DAVID, CMADM ####[facility] [address]isx[address] [place] [address]Dr. Garima Pulliam Urea nitrogen [Mass/Vol] 7.0 mg/dL Normal 7.0-18.0 [facility] Comment on above: Performed By: #### B DAVID, CMADM ####[facility] [address] [place], [place] [address]Gp. Garima Pulliam Urea nitrogen/Creatinine [Mass ratio] 9.7 mg/mg Normal [facility] Comment on above: Performed By: #### B MP, CMADM ####[facility] [address] [place], [place] [address]Qy. Garima Pulliam XR CHEST 1 Von 09-12-2022 [...] Facility:H1 Payers Date Payer Category Payer Unknown [id number] 1960 Medicaid [id number] 1960 Unknown [id number] 1960 Unknown [id number] 1954 Unknown [id number] 2.16.84 0.1.625411.3.579.2.593 1954 Unknown [id number] 2.16.84 0.1.559842.3.579.2.593 1954 Unknown [id number] 2.16.84 0.1.149395.3.579.2.593 1954 Unknown [id number] 2.16.84 0.1.664998.3.579.2.593 1954 Unknown [id number] 2.16.84 0.1.626104.3.579.2.593 1954 Unknown [id number] 2.16.84 0.1.326446.3.579.2.593 1954 Unknown [id number] 2.16.84 0.1.189339.3.579.2.593 1954 Unknown [id number] 2.16.84 0.1.085778.3.579.2.593 1954 Unknown [id number] 2.16.84 0.1.476661.3.579.2.593 1954 Unknown [id number] 2.16.84 0.1.602481.3.579.2.593 1954 Unknown [id number] 2.16.84 0.1.473166.3.579.2.593 1954 Unknown [id number] 2.16.84 0.1.699444.3.579.2.593 1954 Unknown [id number] 2.16.84 0.1.837522.3.579.2.593 1954 Unknown [id number] 2.16.84 0.1.998216.3.579.2.593 1954 Unknown [id number] 2.16.84 0.1.525755.3.579.2.593 1954 Unknown [id number] 2.16.84 0.1.756657.3.579.2.593 1954 Unknown [id number] 2.16.84 0.1.052595.3.579.2.593 1954 Unknown [id number] 2.16.84 0.1.729699.3.579.2.593 1954 Unknown [id number] 2.16.84 0.1.301302.3.579.2.593 1954 Unknown [id number] 2.16.84 0.1.867625.3.579.2.593 Summary Purpose Family History No Family History Records Found Advance Directives No Advanced Directives Records Found Additional Source Comments (unrecognized sect ion and content) No Status Records Found INFORMATION SOURCE (unrecogn ized section and content) DATE CREATED AUTHOR 04/08/2023 [facility] FOR RECORDS PERTAINING TO PATIENTS WHO ARE [...] BE BASED ON THE PRIMARY CLINICAL RECORDS. [facility] [email or web address] [facility]. provides no warranty or guarantee of the accuracy or completeness of information in this document.
[2024-12-24 17:37] VITALS: BP 208/96; PULSE 84; TEMP 37.1; O2SAT 98; BMI 24.0
[2024-12-24 18:40] VITALS: BP 192/105; O2SAT 95
--- NOTE | 2024-12-24 18:52 | ED.GENADUL1 ---
HPI HPI - General Adult General Chief complaint: Shortness of Breath/Dyspnea Stated complaint: Shortness of Breath/Dyspnea Time Seen by Provider: 12/24/24 18:43 Source: patient Mode of arrival: Wheelchair History of Present Illness HPI narrative: Patient is a 69-year-old male presents to the ER requesting a medication refill states he has been out of his albuterol inhaler and albuterol nebulizer for a few days he has a known history of COPD and smokes 2 packs/day patient states he does not have a family doctor currently to refill his medication and comes to the ER when he is out. He denies any chest pain or significant shortness of breath different from his baseline he is hypertensive and states he has not taken his blood pressure medicine in some time previously taking Cozaar 100 mg once a day per medical record. He lives in [place]. He has no other acute complaints and is resting comfortably watching TV. Patient verbalizes that he should not be smoking with his history. He denies any abdominal pain, nausea vomiting or diarrhea. I am only here because of out of my medication. Requesting a breathing treatment here and refills to be sent to his pharmacy in [place]. Related Data Home Medications ?Medication ?Instructions ?Recorded ?Confirmed albuterol sulfate 90 mcg/actuation 2 inh inhalation Q6H PRN shortness 03/13/24 10/02/24 aerosol inhaler of breath or wheezing Previous Rx's ?Medication ?Instructions ?Recorded losartan 100 mg tablet 100 mg PO DAILY #30 tabs 12/27/23 albuterol sulfate 2.5 mg/3 mL 2.5 mg (3 mL) inhalation Q6H PRN 05/26/24 (0.083 %) solution for nebulization shortness of breath or wheezing #90 mL loratadine 10 mg tablet (Claritin) 10 mg PO DAILY #20 tabs 05/30/24 albuterol sulfate 2.5 mg/3 mL 2.5 mg (3 mL) inhalation Q6H PRN 08/07/24 (0.083 %) solution for nebulization shortness of breath or wheezing #90 mL albuterol sulfate 90 mcg/actuation 2 inh inhalation Q4H PRN shortness 08/07/24 aerosol inhaler of breath or wheezing #8.5 grams albuterol sulfate 2.5 mg/3 mL 1.25 mg (1.5 mL) inhalation Q6H 09/04/24 (0.083 %) solution for nebulization PRN bronchospasm #75 mL albuterol sulfate 90 mcg/actuation 2 inh inhalation Q6H PRN shortness 09/04/24 aerosol inhaler of breath or wheezing #6.7 grams albuterol sulfate 2.5 mg/3 mL 2.5 mg (3 mL) inhalation Q6H PRN 09/12/24 (0.083 %) solution for nebulization shortness of breath or wheezing #90 mL prednisone 20 mg tablet See Rx Instructions .Route 09/21/24 .COMPLEX #12 tabs albuterol sulfate 2.5 mg/0.5 mL 2.5 mg (0.5 mL) inhalation Q4H PRN 10/02/24 solution for nebulization shortness of breath or wheezing #30 ea albuterol sulfate 90 mcg/actuation 2 inh inhalation Q4H PRN shortness 10/02/24 aerosol inhaler of breath or wheezing #6.7 grams albuterol sulfate 2.5 mg/3 mL 2.5 mg (3 mL) inhalation Q6H PRN 10/07/24 (0.083 %) solution for nebulization shortness of breath or wheezing #90 mL albuterol sulfate 90 mcg/actuation 2 inh inhalation Q4H PRN shortness 10/07/24 aerosol inhaler of breath or wheezing #8.5 grams hydrocodone 5 mg-acetaminophen 325 1 tab PO Q4H PRN pain #10 tabs 11/11/24 mg tablet ketorolac 10 mg tablet 10 mg PO Q8H PRN pain 1 day #10 11/11/24 tabs metformin 500 mg tablet 500 mg PO BID #30 tabs 11/11/24 ondansetron 4 mg disintegrating 4 mg PO Q4H PRN nausea and 11/11/24 tablet vomiting 3 days #6 tabs tamsulosin 0.4 mg capsule (Flomax) 0.4 mg PO DAILY 7 days #7 caps 11/11/24 tamsulosin 0.4 mg capsule (Flomax) 0.4 mg PO DAILY #14 caps 11/12/24 albuterol sulfate 90 mcg/actuation 1 inh inhalation Q6H PRN shortness 12/10/24 aerosol inhaler of breath or wheezing #8.5 grams ipratropium 0.5 mg-albuterol 3 mg 3 ml inhalation Q4H PRN shortness 12/10/24 (2.5 mg base)/3 mL nebulization of breath #90 mL soln albuterol sulfate 2.5 mg/3 mL 2.5 mg (3 mL) inhalation Q6H PRN 12/24/24 (0.083 %) solution for nebulization shortness of breath or wheezing #90 mL albuterol sulfate 90 mcg/actuation 2 inh inhalation Q4H PRN shortness 12/24/24 aerosol inhaler of breath or wheezing #6.7 grams losartan 100 mg tablet (Cozaar) 100 mg PO DAILY #30 tabs 12/24/24 Allergies Allergy/AdvReac Type Severity Reaction Status Date / Time No Known Drug Allergies Allergy Verified 11/21/24 19:22 Opioid HPI Opioid Management Most Recent Opioid Data: Last ED Pain Assessment 12/24/24 18:00 Last ORT Total Score 0 01/29/24 06:36 01/29/24 Last ORT Risk Category Low Risk 01/29/24 06:36 01/29/24 Review of Systems ROS Constitutional Denies: fever or chills Eyes Denies: change in vision Ears, nose, mouth, and throat Denies: throat pain or neck pain Cardiovascular Denies: chest pain, palpitations, edema, swelling of feet/ankles or lightheadedness Respiratory Reports: shortness of breath and wheezing; Denies: cough, stridor, pain on inspiration or change in phlegm color Gastrointestinal Denies: abdominal pain or nausea Musculoskeletal Denies: back pain, neck pain or extremity pain Integumentary/Breast Denies: rash or itching Neurological Denies: headache Psychiatric Denies: anxiety [facility] Medical History (Updated 12/24/24 @ 19:04 by PALMIRA Montoya) Hypokalemia ?E87.6 - Hypokalemia (ICD-10) New onset type 2 diabetes mellitus ?E11.9 - Type 2 diabetes mellitus without complications (ICD-10) Lower extremity edema ?R60.0 - Localized edema (ICD-10) Edema ?R60.9 - Edema, unspecified (ICD-10) Acute hyperglycemia ?R73.9 - Hyperglycemia, unspecified (ICD-10) Tobacco abuse ?Z72.0 - Tobacco use (ICD-10) HTN (hypertension) ?I10 - Essential (primary) hypertension (ICD-10) Community acquired pneumonia ?J18.9 - Pneumonia, unspecified organism (ICD-10) Chronic obstructive pulmonary disease ?J44.9 - Chronic obstructive pulmonary disease, unspecified (ICD-10) Acute exacerbation of chronic obstructive pulmonary disease (COPD) ?J44.1 - Chronic obstructive pulmonary disease with (acute) exacerbation (ICD-10) RLL pneumonia ?J18.9 - Pneumonia, unspecified organism (ICD-10) COPD (chronic obstructive pulmonary disease) ?J44.9 - Chronic obstructive pulmonary disease, unspecified (ICD-10) Surgical History (Updated 01/29/24 @ 06:45 by Latonia Martin RN) Hx of tonsillectomy ?Z90.89 - Acquired absence of other organs (ICD-10) Family History (Updated 12/25/23 @ 21:28 by Kym Ordaz) Mother Family history of cancer Family history of hypertension Father Family history of cancer Social History Within the past year, how often did you have a drink containing alcohol: 4 or more times a week Within the past year, how many standard drinks containing alcohol did you have on a typical day: 3 or 4 Within the past year, how often did you have six or more drinks on one occasion: less than monthly Total score: 3 Score interpretation: A score of 4 or more indicates drinking is likely to affect patient's safety. Smoking status: Current every day smoker Non-prescribed substance use: cannabis (any form) Previous occupational history: retired Highest level of school completed/degree received: high school graduate Are you now , , , , never or living with a partner: In a typical week, how many times do you talk on the telephone with family, friends, or neighbors: twice per week How often do you get together with friends or relatives: once per week How often do you attend pentecostal or mandaen services: never Do you belong to any clubs or organizations such as pentecostal groups unions, fraternal or athletic groups, or school groups: no Total score: 1 Score interpretation: A score of less than or equal to 1 indicates the most socially isolated. Little interest or pleasure in doing things: not at all Feeling down, depressed, or hopeless: not at all Feel stressed/tense/nervous/anxious/difficulty sleeping: not at all Do you think of yourself as: straight/heterosexual Gender Identity: male Exam Narrative Exam Narrative: Nurses notes and vital signs reviewed and patient is not hypoxic. General: The patient appears well and in no apparent distress. Patient is resting comfortably on cart. Skin: Warm, dry, no pallor noted. Head: Normocephalic, atraumatic Neck: Supple, trachea mid-line, no tenderness, no lymphadenopathy Eye: Pupils are equal, round and reactive to light, EOMI Ears, Nose, Mouth, and Throat: TM are clear, normal light reflex, oral mucosa is moist, no posterior oropharynx erythema or hypertrophy, uvula is mid-line Cardiovascular: Regular Rate and Rhythm Respiratory: Patient is in no distress, no accessory muscle use, lungs are clear to auscultation, slight expiratory wheeze upper lobes, rales or rhonchi. Chest Wall: no tenderness Back: non-tender, no CVA tenderness Musculoskeletal: normal ROM, no tenderness, no swelling GI: Normal bowel sounds, no tenderness to palpation, no masses appreciated. No rebound, guarding, or rigidity noted. Neurological: A&O x4 Psychiatric: Cooperative Constitutional Vital Signs, click to edit/add: Last Vital Signs Temp 98.7 F 12/24/24 17:37 Pulse 84 12/24/24 17:37 Resp 18 12/24/24 17:37 BP 192/105 H 12/24/24 18:40 Pulse Ox 95 12/24/24 18:40 Course Vital Signs Vital signs: Vital Signs Temperature 98.7 F 12/24/24 17:37 Pulse Rate 84 12/24/24 17:37 Respiratory Rate 18 12/24/24 17:37 Blood Pressure 208/96 H 12/24/24 17:37 Pulse Oximetry 98 12/24/24 17:37 Temperature 98.7 F 12/24/24 17:37 Pulse Rate 84 12/24/24 17:37 Respiratory Rate 18 12/24/24 17:37 Blood Pressure 192/105 H 12/24/24 18:40 Pulse Oximetry 95 12/24/24 18:40 Medical Decision Making MDM Narrative Medical decision making narrative: Patient presents hypertensive requesting medication refill admits that he has been out of his medications for some time for his blood pressure cannot give a date poor historian but notes that he has been out of his breathing medications more recently he lives [place] and states he has not ever established a family doctor he is requesting a refill on his medications through the ER we discussed the importance of continuity of care he has very high risk with his age 2 pack/day smoking history and known COPD he did not Clines need for steroids at this time as he is not having a flareup but simply out of his maintenance medications. He would likely be better served with a steroid inhaled and recommend he follow-up with health clinic to discuss long-term treatments and he verbalizes the need for smoking sensation patient denies any other symptoms and is requesting a medication refill and 1 breathing treatment here prior to discharge patient will be given the first dose of his blood pressure medicine as well and encouraged to have his BP rechecked with health clinic Patient is strongly encouraged to return to the ER if any symptoms develop and he verbalized the importance of medication compliance. Known history of COPD and hypertension only presenting today requesting medication refill I do not feel the need to check any labs or imaging studies as he is without complaints and I would expect his blood pressure to improve if compliant with the treatment plan. Pt is Not hypoxic. The patient is to followup with primary care physician in next 2-3 days or to return to the emergency department should any of the signs or symptoms worsen or new symptoms develop. Patient had questions answered. The patient agrees with the following Diagnosis and Treatment plan and the patient will be discharged home. Discharge Plan Discharge Chief Complaint: Shortness of Breath/Dyspnea Clinical Impression: Medication refill, Hypertension, COPD (chronic obstructive pulmonary disease), History of tobacco abuse Patient Disposition: Home, Self-Care Time of Disposition Decision: 19:03 Condition: Good Prescriptions / Home Meds: New albuterol sulfate 90 mcg/actuation HFA aerosol inhaler 2 inh inhalation Q4H PRN (Reason: shortness of breath or wheezing) Qty: 6.7 0RF losartan [Cozaar] 100 mg tablet 100 mg PO DAILY Qty: 30 0RF albuterol sulfate 2.5 mg /3 mL (0.083 %) solution for nebulization 2.5 mg inhalation Q6H PRN (Reason: shortness of breath or wheezing) Qty: 90 1RF No Action losartan 100 mg tablet 100 mg PO DAILY Qty: 30 11RF albuterol sulfate 90 mcg/actuation HFA aerosol inhaler 2 inh inhalation Q6H PRN (Reason: shortness of breath or wheezing) albuterol sulfate 2.5 mg /3 mL (0.083 %) solution for nebulization 2.5 mg inhalation Q6H PRN (Reason: shortness of breath or wheezing) Qty: 90 0RF albuterol sulfate 2.5 mg /3 mL (0.083 %) solution for nebulization 2.5 mg inhalation Q6H PRN (Reason: shortness of breath or wheezing) Qty: 90 0RF albuterol sulfate 90 mcg/actuation HFA aerosol inhaler 2 inh inhalation Q4H PRN (Reason: shortness of breath or wheezing) Qty: 8.5 0RF albuterol sulfate 2.5 mg /3 mL (0.083 %) solution for nebulization 2.5 mg inhalation Q6H PRN (Reason: shortness of breath or wheezing) Qty: 90 0RF prednisone 20 mg tablet See Rx Instructions .ROUTE .COMPLEX Qty: 12 0RF Rx Instructions: 3 tabs daily for 2 days, then 2 tabs daily for 2 days, then 1 tab daily for 2 days albuterol sulfate 2.5 mg/0.5 mL solution for nebulization 2.5 mg inhalation Q4H PRN (Reason: shortness of breath or wheezing) Qty: 30 2RF albuterol sulfate 90 mcg/actuation HFA aerosol inhaler 2 inh inhalation Q4H PRN (Reason: shortness of breath or wheezing) Qty: 6.7 0RF loratadine [Claritin] 10 mg tablet 10 mg PO DAILY Qty: 20 0RF albuterol sulfate 2.5 mg /3 mL (0.083 %) solution for nebulization 1.25 mg inhalation Q6H PRN (Reason: bronchospasm) Qty: 75 0RF albuterol sulfate 90 mcg/actuation HFA aerosol inhaler 2 inh inhalation Q6H PRN (Reason: shortness of breath or wheezing) Qty: 6.7 0RF albuterol sulfate 90 mcg/actuation HFA aerosol inhaler 2 inh inhalation Q4H PRN (Reason: shortness of breath or wheezing) Qty: 8.5 0RF albuterol sulfate 2.5 mg /3 mL (0.083 %) solution for nebulization 2.5 mg inhalation Q6H PRN (Reason: shortness of breath or wheezing) Qty: 90 0RF hydrocodone-acetaminophen 5-325 mg tablet 1 tab PO Q4H PRN (Reason: pain) Qty: 10 0RF ketorolac 10 mg tablet 10 mg PO Q8H PRN (Reason: pain) 1 Days Qty: 10 0RF tamsulosin [Flomax] 0.4 mg capsule 0.4 mg PO DAILY 7 Days Qty: 7 0RF ondansetron 4 mg tablet,disintegrating 4 mg PO Q4H PRN (Reason: nausea and vomiting) 3 Days Qty: 6 0RF metformin 500 mg tablet 500 mg PO BID Qty: 30 0RF tamsulosin [Flomax] 0.4 mg capsule 0.4 mg PO DAILY Qty: 14 0RF ipratropium-albuterol 0.5 mg-3 mg(2.5 mg base)/3 mL solution for nebulization 3 ml inhalation Q4H PRN (Reason: shortness of breath) Qty: 90 0RF Rx Instructions: until breathing returns to target peak flow/parameters albuterol sulfate 90 mcg/actuation HFA aerosol inhaler 1 inh inhalation Q6H PRN (Reason: shortness of breath or wheezing) Qty: 8.5 0RF Print Language: Maori Instructions: COPD (Chronic Obstructive Pulmonary Disease) (ED), Hypertension (ED) Additional Instructions: You will need to have your blood pressure rechecked with health clinic in 3 to 5 days with taking prescribed medication Referrals: [facility] [Physician] - As soon as possible Fidel Oliver MD [Physician] - As soon as possible
[2024-12-24] MEDS: LOSARTAN POTASSIUM 50 MG TABLET 100 MG PO (19:16)
[2024-12-24] MEDS: IPRATROPIUM/ALBUTEROL SULFATE 3 ML AMPUL.NEB IH (19:18)
[2024-12-24 19:19] VITALS: PULSE 62; O2SAT 97
[2024-12-24] MEDS: ALBUTEROL SULFATE 2.5 MG/3 ML VIAL NEB IH ×2 (19:30→19:32)
== END 2024-12-24 19:38 | disposition home or self-care (01) ==
PROVIDERS: Emergency Provider Emergency Medicine
DX: Z76.0 Encounter for issue of repeat prescription (principal); R06.02 Shortness of breath; F17.210 Nicotine dependence, cigarettes, uncomplicated; I10 Essential (primary) hypertension
CPT/HCPCS: 94640; 99284

== ENCOUNTER 2024-12-28 18:14 | Emergency (ER) | payer MEDICARE, SELFPAY ==
[2024-12-28] VITALS (18 sets, daily range): BP systolic 180–210; BP diastolic 90–110; PULSE 74–96; TEMP 36.9; O2SAT 95–96; BMI 27.4
--- OUTSIDE RECORDS SUMMARY | 2024-12-28 18:21 | XMS_ITS | CCD ---
Author Organization [facility] CliniSyms Care Team Providers Care Billing Auditor Name Role Phone REQUEST, DR NONE LISTED [...] AIMEE ., MARIYA Attending Unavailable GRECHNY ., PLAMIRA FOX Consulting UnavailREGINALDO Ferrell Consulting Unavailable SISTER, SIMONE Consulting Unavailable AIMEE ., MARIYA Consulting Unavailable Allergies Allergy Classification Reported Allergen(s) Allergy Type Date of Onset Reaction(s) Facility (1 source) Penicillin Drug Allergy 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 Comment on above: Performed By: #### C BC ####[facility] Djjdklects[address] [place] [address]Dr. Garima Pulliam Basophils/100 WBC (Bld) 0.3 % Normal 0.2-2.0 [facility] Comment on above: Performed By: #### C BC ####[facility] Sschfdgioy38[address] [place] [address]DrAdalberto Pulliam EO # 0.3 103/ul Normal 0.0-0.7 [facility] Comment on above: Performed By: #### C BC ####[facility] Cifpwhew[address] [place], [place] [address]Dr. Garima Pulliam Eosinophils/100 WBC (Bld) 2.8 % Normal 0.9-7.0 [facility] Comment on above: Performed By: #### C BC ####[facility] Cuxyukhzyg40[address] [place] [address]Dr. Garima Pulliam Erythrocyte distribution width (RBC) [Ratio] 13.4 % Normal 11.0-15.0 [facility] Comment on above: Performed By: #### C BC ####[facility] Ooucltupuo5125 [place] [address]Dr. Garima Pulliam Hematocrit (Bld) [Volume fraction] 45.7 % Normal 42.0-54.0 [facility] Comment on above: Performed By: #### C BC ####[facility] Nrjfywplfv9857 [place] [address]Dr. Garima Pulliam Hemoglobin (Bld) [Mass/Vol] 15.2 g/dL Normal 14.0-18.0 [facility] Comment on above: Performed By: #### C BC ####[facility] Wgdyazsitc4670 [place] [address]Dr. Garima Pulliam IG # 0.02 10e3/ul Normal 0.00-0.03 [facility] Comment on above: Performed By: #### C BC ####[facility] Jcidngjaka[address] [place] [address]Dr. Garima Pulliam IG % 0.2 % Normal 0.0-0.5 [facility] Comment on above: Performed By: #### C BC ####[facility] Unmzpkxtla038[address] [place] [address]Dr. Garima Pulliam LYMPH # 2.1 103/ul Normal 1.2-3.8 [facility] Comment on above: Performed By: #### C BC ####[facility] Ysllsabzdv6299 [place] [address]Dr. Garima Pulliam Lymphocytes/100 WBC (Bld) 23.7 % Normal 20.5-60.0 [facility] Comment on above: Performed By: #### C BC ####[facility] Vlpplpqzrx5590 [place] [address]Dr. Garima Heraclio MANUAL DIFF REQ NO Normal [facility] Comment on above: Performed By: #### C BC ####[facility] Iixkqegury5567 [place] [address]Dr. Garima Pulliam MCH (RBC) [Entitic mass] 30.4 pg Normal 25.9-34.0 [facility] Comment on above: Performed By: #### C BC ####[facility] Mtpbedlbkl7675 [place] [address]Dr. Garima Heraclio MCHC (RBC) [Mass/Vol] 33.3 g/dL Normal 29.9-35.2 [facility] Comment on above: Performed By: #### C BC ####[facility] Gancghhegr[address] [place], [place] [address]Dr. Chapisrenu Pulliam MCV (RBC) [Entitic vol] 91.4 fL Normal 80.0-94.0 [facility] Comment on above: Performed By: #### C BC ####[facility] Ntmavnnljw[address] [place], [place] [address]Dr. Garima Heraclio MONO # 0.7 103/ul Normal 0.3-0.8 [facility] Comment on above: Performed By: #### C BC ####[facility] Nfdpyksymh[address] [place], [place] [address]Dr. Chapisrenu Pulliam Monocytes/100 WBC (Bld) 8.3 % Normal 1.7-12.0 [facility] Comment on above: Performed By: #### C BC ####[facility] Czesjxntnj5821 [place] [address]Dr. Chapisrenu Heraclio NEUT # 5.8 103/ul Normal 1.4-6.5 [facility] Comment on above: Performed By: #### C BC ####[facility] Mondoktmpv[address] [place], [place] [address]Dr. Garima Pulliam Neutrophils/100 WBC (Bld) 64.7 % Normal 43.0-75.0 [facility] Comment on above: Performed By: #### C BC ####[facility] Kfpqpnfaej9776 [place] [address]Dr. Garima Pulliam Platelet mean volume (Bld) [Entitic vol] 8.6 fL Critically low 9.5-13.5 [facility] Comment on above: Performed By: #### C BC ####[facility] Zvatrcrxvn7771 [place] [address]Dr. Garima Pulliam PLT 230 103/ul Normal 150-450 [facility] Comment on above: Performed By: #### C BC ####[facility] Fxypvajemp7287 [place] [address]Dr. Chapisrenu Heraclio RBC 5.00 106/ul Normal 4.70-6.10 [facility] Comment on above: Performed By: #### C BC ####[facility] Obczevczls8061 [place] [address]Dr. Garima Heraclio WBC 9.0 103/ul Normal 4.0-11.0 [facility] Comment on above: Performed By: #### C BC ####[facility] Rwqbmtquah2079 [place] [address]Dr. Garima Pulliam MAGNESIUMon 04-04-2023 Magnesium [Mass/Vol] 1.8 mg/dL Normal 1.8-2.4 [facility] Comment on above: Performed By: #### M G ####[facility] Jtqkbvewyo2639 [place] [address]Dr. Chapisrenu Pulliam PROF 14(COMP METB)on 023 Albumin [Mass/Vol] 3.8 g/dL Normal 3.4-5.0 [facility] Comment on above: Performed By: #### C MP ####[facility] Llyqmxkuct4037 [place] [address]Dr. Garima Pulliam Albumin/Globulin [Mass ratio] 1.2 {ratio} Normal [facility] Comment on above: Performed By: #### C MP ####[facility] Mtkypikoka6525 [place] [address]Dr. Garima Heraclio ALP [Catalytic activity/Vol] 84 U/L Normal 46-116 [facility] Comment on above: Performed By: #### C MP ####[facility] Vhgkztijyn5252 [place] [id number]. Garima Pulliam ALT [Catalytic activity/Vol] 31 U/L Normal 16-63 [facility] Comment on above: Performed By: #### C MP ####[facility] Bbzdnztgye5468 [place] [address]Dr. Garima Pulliam Anion gap [Moles/Vol] 12.2 mmol/L Normal [facility] Comment on above: Performed By: #### C MP ####[facility] Bfhkrbedyh6810 [place] [address]Dr. Garima Pulliam AST [Catalytic activity/Vol] 23 U/L Normal 15-37 [facility] Comment on above: Performed By: #### C MP ####[facility] Glzjwwpfzf[address] [place], [place] [address]Dr. Garima Pulliam Bilirubin [Mass/Vol] 0.5 mg/dL Normal 0.2-1.0 [facility] Comment on above: Performed By: #### C MP ####[facility] Klroxrgfmn17[address] [place], [place] [address]Dr. Garima Pulliam Calcium [Mass/Vol] 9.2 mg/dL Normal 8.5-10.1 [facility] Comment on above: Performed By: #### C MP ####[facility] Ffvuoukdhg[address] [place], [place] [address]Dr. Garima Pulliam Chloride [Moles/Vol] 103 mmol/L Normal 98-107 [facility] Comment on above: Performed By: #### C MP ####[facility] Ahpgyjmnev7817 [place] [address]Dr. Garima Pulliam CO2 [Moles/Vol] 28.5 mmol/L Normal 21.0-32.0 [facility] Comment on above: Performed By: #### C MP ####[facility] Ryttwvtksl24[address] [place], [place] [address]Dr. Garima Pulliam Creatinine [Mass/Vol] 0.74 mg/dL Normal 0.70-1.30 [facility] Comment on above: Performed By: #### C MP ####[facility] Yxpkinpvgw8158 [place] [id number]. Garima Pulliam EGFR-AF TONGAN >60 Normal >=60 [facility] Comment on above: Performed By: #### C MP ####[facility] Fbdsbmhhsu1098 [place] [address]Dr. Garima Heraclio EGFR-NON AF TONGAN >60 Normal >=60 [facility] Comment on above: Performed By: #### C MP ####[facility] Bcisidrwzn0293 [place] [id number]. Garima Heraclio Globulin (S) [Mass/Vol] 3.1 g/dL Normal [facility] Comment on above: Performed By: #### C MP ####[facility] Eeswnsvtdq18[address] [place], [place] [address]Dr. Garima Heraclio Glucose [Mass/Vol] 93 mg/dL Normal 74-106 [facility] Comment on above: Performed By: #### C MP ####[facility] Pkzpnotbgm63[address] [place], [place] [address]Dr. Garima Heraclio Potassium [Moles/Vol] 3.7 mmol/L Normal 3.5-5.1 [facility] Comment on above: Performed By: #### C MP ####[facility] Nwztkgkpan[address] [place], [place] [address]Dr. Garima Heraclio Protein [Mass/Vol] 6.9 g/dL Normal 6.4-8.2 [facility] Comment on above: Performed By: #### C MP ####[facility] Iyfsqjwfpu[address] [place], [place] [address]Dr. Garima Heraclio Sodium [Moles/Vol] 140 mmol/L Normal 136-145 [facility] Comment on above: Performed By: #### C MP ####[facility] Znnkpdzcty2[address] [place], [place] [address]Dr. Garima Pulliam Urea nitrogen [Mass/Vol] 8.0 mg/dL Normal 7.0-18.0 [facility] Comment on above: Performed By: #### C MP ####[facility] Zzwkvlxwhx[address] [place], [place] [address]Dr. Garima Pulliam Urea nitrogen/Creatinine [Mass ratio] 10.8 mg/mg Normal [facility] Comment on above: Performed By: #### C DAVID ####[facility] Mhgcyxpgiv4015 [place] [address]Dr. Garima Pulliam AMMONIAon 03-30-2023 Ammonia (P) [Moles/Vol] 11 umol/L Normal 11-32 [facility] Comment on above: Performed By: #### A MM ####[facility] Helxgatjoz[address] [place], [place] [address]Dr. Garima Pulliam CARDIAC NASH ADMITon 023 CK [Catalytic activity/Vol] 232 U/L Normal 39-308 [facility] Comment on above: Performed By: #### C NANCY HERNANDEZ ####[facility] Lwskynfdlc3153 [place] [address]Dr. Chapisrenu Pulliam CK.MB [Mass/Vol] 4.83 ng/mL Critically high <=3.60 [facility] Comment on above: Performed By: #### C NANCY HERNANDEZ ####[facility] Evvoonwsyy94[address] [place], [place] [address]Dr. Garima Pulliam HSTROP 10.5 pg/mL Normal 4.0-76.1 [facility] Comment on above: Result Comment: CUT- OFF POINTS HAVE BEEN ESTABLISHED BASED ON THE FOURTH UNIVERSAL DEFINITIONS OF MYOCARDIALINFARCTION. THE UPPER REFERENCE LIMIT (URL) OF TROPONIN, DEFINED THE 99TH PERCENTILE OFcTnI DISTRIBUTION IN A REFERENCE POPULATION, HAS BEEN CONFIRMED THE DECISION THRESHOLDFOR WA DIAGNOSIS. Performed By: #### C NANCY HERNANDEZ ####[facility] Huyjogczfw[address] [place], [place] [address]Dr. Garima Heraclio DORIS 79 ng/mL Normal 16-96 [facility] Comment on above: Performed By: #### C NANCY HERNANDEZ ####[facility] Twjilslczk[address] [place], [place] [address]Dr. Garima Heraclio CBC AUTO DIFFon 03-30-2023 BASO # 0.0 103/ul Normal 0.0-0.1 [facility] Comment on above: Performed By: #### C BC ####[facility] Oknoxdrope7588 [place] [id number]. Garima Pulliam Basophils/100 WBC (Bld) 0.1 % Critically low 0.2-2.0 [facility] Comment on above: Performed By: #### C BC ####[facility] Dgqcknjsqm5544 [place] [id number]. Garima Pulliam EO # 0.3 103/ul Normal 0.0-0.7 [facility] Comment on above: Performed By: #### C BC ####[facility] Skqxispwkp[address] [place], [place] [address]Dr. Garima Pulliam Eosinophils/100 WBC (Bld) 3.3 % Normal 0.9-7.0 [facility] Comment on above: Performed By: #### C BC ####[facility] [address]qoybhjie[address] [place], [place] [address]Dr. Garima Pulliam Erythrocyte distribution width (RBC) [Ratio] 13.5 % Normal 11.0-15.0 [facility] Comment on above: Performed By: #### C BC ####[facility] [address]wjj[address] [place], [place] [address]Dr. Garima Pulliam Hematocrit (Bld) [Volume fraction] 42.9 % Normal 42.0-54.0 [facility] Comment on above: Performed By: #### C BC ####[facility] [address]efisecsj[address] [place], [place] [address]Dr. Garima Pulliam Hemoglobin (Bld) [Mass/Vol] 13.9 g/dL Critically low 14.0-18.0 [facility] Comment on above: Performed By: #### C BC ####[facility] Xycdtulbir3373 [place] [id number]. Garima Pulliam IG # 0.01 10e3/ul Normal 0.00-0.03 [facility] Comment on above: Performed By: #### C BC ####[facility] Gxiefbotpv[address] [place], [place] [address]Dr. Garima Pulliam IG % 0.1 % Normal 0.0-0.5 [facility] Comment on above: Performed By: #### C BC ####[facility] Ewntamhphm9880 [place] [id number]. Garima Pulliam LYMPH # 1.7 103/ul Normal 1.2-3.8 [facility] Comment on above: Performed By: #### C BC ####[facility] Garucialyy9204 [place], [place] [address]Am. Garima Pulliam Lymphocytes/100 WBC (Bld) 22.8 % Normal 20.5-60.0 [facility] Comment on above: Performed By: #### C BC ####[facility] Tqmlltmhxg1480 [place] [id number]. Garima Heraclio MANUAL DIFF REQ NO Normal [facility] Comment on above: Performed By: #### C BC ####[facility] Oaaevrznzh4822 [place] [id number]. Garima Heraclio MCH (RBC) [Entitic mass] 30.5 pg Normal 25.9-34.0 [facility] Comment on above: Performed By: #### C BC ####[facility] Yxsbtuxjcv8412 [place] [id number]. Garima Pulliam MCHC (RBC) [Mass/Vol] 32.4 g/dL Normal 29.9-35.2 [facility] Comment on above: Performed By: #### C BC ####[facility] Cpmoqlgmac2993 [place] [id number]. Garima Heraclio MCV (RBC) [Entitic vol] 94.1 fL Critically high 80.0-94.0 [facility] Comment on above: Performed By: #### C BC ####[facility] Wdlofxxyuf6005 [place] [address]Dr. Garima Heraclio MONO # 0.7 103/ul Normal 0.3-0.8 [facility] Comment on above: Performed By: #### C BC ####[facility] Zthqbccrgi3489 [place] [address]Dr. Garima Heraclio Monocytes/100 WBC (Bld) 8.6 % Normal 1.7-12.0 [facility] Comment on above: Performed By: #### C BC ####[facility] Eftrlklerf5562 [place] [address]Dr. Garima Pulliam NEUT # 4.9 103/ul Normal 1.4-6.5 [facility] Comment on above: Performed By: #### C BC ####[facility] Hfednjouio6061 [place] [address]Dr. Garima Pulliam Neutrophils/100 WBC (Bld) 65.1 % Normal 43.0-75.0 [facility] Comment on above: Performed By: #### C BC ####[facility] Lriugnoygn0661 [place] [address]Dr. Garima Pulliam Platelet mean volume (Bld) [Entitic vol] 8.5 fL Critically low 9.5-13.5 [facility] Comment on above: Performed By: #### C BC ####[facility] Pbpcnrrpic1908 [place] [id number]. Garima Pulliam PLT 219 103/ul Normal 150-450 [facility] Comment on above: Performed By: #### C BC ####[facility] Xbtufkilit0784 [place] [address]Dr. Garima Pulliam RBC 4.56 106/ul Critically low 4.70-6.10 [facility] Comment on above: Performed By: #### C BC ####[facility] Lkiumkpzec6524 [place] [address]Dr. Garima Pulliam WBC 7.6 103/ul Normal 4.0-11.0 [facility] Comment on above: Performed By: #### C BC ####[facility] Fdvzxohznb6032 [place] [id number]. Garima Pulliam LACTATE/LACTIC ACIDon 2022 Lactate [Moles/Vol] 1.2 mmol/L Normal 0.4-2.0 [facility] Comment on above: Performed By: #### L ACT ####[facility] Ipdsosqkvs6353 [place] [id number]. Garima Pulliam MAGNESIUMon 03-30-2023 Magnesium [Mass/Vol] 1.8 mg/dL Normal 1.8-2.4 [facility] Comment on above: Performed By: #### M G ####[facility] Wyennfnzjm7540 [place] [address]Dr. Garima Pulliam PROF 14(COMP METB)on 023 Albumin [Mass/Vol] 3.5 g/dL Normal 3.4-5.0 [facility] Comment on above: Performed By: #### C DAVID, CMAANA ROSA ####[facility] Zeeyycuhct3610 [place] [address]Dr. Garima Pulliam Albumin/Globulin [Mass ratio] 1.2 {ratio} Normal [facility] Comment on above: Performed By: #### C DAVID, CMAANA ROSA ####[facility] Gaiyzpefqi8176 [place] [address]Dr. Garima Pulliam ALP [Catalytic activity/Vol] 85 U/L Normal 46-116 [facility] Comment on above: Performed By: #### C DAVID, CMAANA ROSA ####[facility] Xrjathkkby[address] [place], [place] [address]Dr. Garima Pulliam ALT [Catalytic activity/Vol] 29 U/L Normal 16-63 [facility] Comment on above: Performed By: #### C DAVID, CMAANA ROSA ####[facility] Lubernpnjz5159 [place] [address]Dr. Garima Pulliam Anion gap [Moles/Vol] 8.0 mmol/L Normal [facility] Comment on above: Performed By: #### C DAVID, CMAANA ROSA ####[facility] Dpxizrypmj9966 [place] [address]Dr. Garima Pulliam AST [Catalytic activity/Vol] 18 U/L Normal 15-37 [facility] Comment on above: Performed By: #### C DAVID, CMADM ####[facility] Eqcjfirsha9793 [place] [address]Dr. Garima Pulliam Bilirubin [Mass/Vol] 0.4 mg/dL Normal 0.2-1.0 [facility] Comment on above: Performed By: #### C DAVID, CMADM ####[facility] Chnbmssmal1777 [place] [address]Dr. Garima Pulliam Calcium [Mass/Vol] 8.8 mg/dL Normal 8.5-10.1 [facility] Comment on above: Performed By: #### C DAVID, NANCY ####[facility] Ywnqeghgnj1497 [place] [address]Dr. Chapisrenu Pulliam Chloride [Moles/Vol] 108 mmol/L Critically high 98-107 [facility] Comment on above: Performed By: #### C DAVID, NANCY ####[facility] Jlkwnmxjlf9998 [place] [address]Dr. Garima Pulliam CO2 [Moles/Vol] 29.6 mmol/L Normal 21.0-32.0 [facility] Comment on above: Performed By: #### C NANCY HERNANDEZ ####[facility] Xjuchtdlaq[address] [place], [place] [address]Dr. Garima Pulliam Creatinine [Mass/Vol] 0.77 mg/dL Normal 0.70-1.30 [facility] Comment on above: Performed By: #### C NANCY HERNANDEZ ####[facility] Fqwjnpuryg[address] [place], [place] [address]Dr. Garima Heraclio EGFR-AF TONGAN >60 Normal >=60 [facility] Comment on above: Performed By: #### C NANCY HERNANDEZ ####[facility] Hjqoeqdbmt[address] [place], [place] [address]Dr. Garima Heraclio EGFR-NON AF TONGAN >60 Normal >=60 [facility] Comment on above: Performed By: #### C NANCY HERNANDEZ ####[facility] Hhgbavvrmt8602 [place] [address]Dr. Garima Pulliam Globulin (S) [Mass/Vol] 2.8 g/dL Normal [facility] Comment on above: Performed By: #### C NANCY HERNANDEZ ####[facility] Dmlwnzgtsy6563 [place] [address]Dr. Garima Pulliam Glucose [Mass/Vol] 207 mg/dL Critically high 74-106 [facility] Comment on above: Performed By: #### C NANCY HERNANDEZ ####[facility] Jnonkkgoxm[address] [place], [place] [address]Dr. Garima Pulliam Potassium [Moles/Vol] 4.6 mmol/L Normal 3.5-5.1 [facility] Comment on above: Performed By: #### C DAVID, NANCY ####[facility] Rmsibrnoox8937 [place] [address]Dr. Garima Pulliam Protein [Mass/Vol] 6.3 g/dL Critically low 6.4-8.2 [facility] Comment on above: Performed By: #### C DAVID, NANCY ####[facility] Aayxgtzguk7064 [place] [address]Dr. Garima Pulliam Sodium [Moles/Vol] 141 mmol/L Normal 136-145 [facility] Comment on above: Performed By: #### C DAVID, NANCY ####[facility] Yzxlisvrkn9952 [place] [address]Dr. Garima Pulliam Urea nitrogen [Mass/Vol] 9.0 mg/dL Normal 7.0-18.0 [facility] Comment on above: Performed By: #### C DAVID, NANCY ####[facility] Xomrshrkok[address]121 [place] [address]Dr. Garima Pulliam Urea nitrogen/Creatinine [Mass ratio] 11.7 mg/mg Normal [facility] Comment on above: Performed By: #### C DAVID, NANCY ####[facility] Ynbnlavczf[address] [place] [address]Dr. Garima Pulliam XR CHEST 1 Von 03-30-2023 XR CHEST 1 V Normal [facility] BNPon 03-27-2023 Natriuretic peptide B (Bld) [Mass/Vol] 251.0 pg/mL Normal <=900.0 [facility] Comment on above: Performed By: #### C MP, BNP, LIPID ####[facility] Twomgpfmnw[address] [place] [address]Dr. Garima Pulliam GLYCOHEMOGLOBIN A1Con 2022 ADA RECOMMENDATION SEE BELOW Normal [facility] Comment on above: Result Comment: ADA RECOMMENDED LIMIT 4.0 - 6.0 ADA THERAPEUTIC TARGET < 7.0 ACTION SUGGESTED > 7.0 Performed By: #### A 1C ####[facility] Dkkgmpjkhv7122 [place] [address]Dr. Garima Pulliam Glucose [Mass/Vol] 180 mg/dL Normal [facility] Comment on above: Performed By: #### A 1C ####[facility] Yomfgvoajx[address] [place], [place] [address]Dr. Chapisrenu Pulliam HbA1c (Bld) [Mass fraction] 7.9 % Critically high 4.5-6.2 [facility] Comment on above: Performed By: #### A 1C ####[facility] Ngriwracxc[address] [place], [place] [address]Dr. Garima Pulliam HEMOGRAM AND PLATELon 2022 Hematocrit (Bld) [Volume fraction] 45.7 % Normal 42.0-54.0 [facility] Comment on above: Performed By: #### H H ####[facility] Uvifblbgao[address] [place], [place] [address]Dr. Garima Pulliam Hemoglobin (Bld) [Mass/Vol] 15.1 g/dL Normal 14.0-18.0 [facility] Comment on above: Performed By: #### H H ####[facility] Ymdiejleug[address] [place], [place] [address]Dr. Garima Pulliam MCH (RBC) [Entitic mass] 30.0 pg Normal 25.9-34.0 [facility] Comment on above: Performed By: #### H H ####[facility] Fokbcrvmcl[address] [place], [place] [address]Dr. Garima Pulliam MCHC (RBC) [Mass/Vol] 33.0 g/dL Normal 29.9-35.2 [facility] Comment on above: Performed By: #### H H ####[facility] Aalbxoyxqx[address] [place], [place] [address]Dr. Garima Pulliam MCV (RBC) [Entitic vol] 90.7 fL Normal 80.0-94.0 [facility] Comment on above: Performed By: #### H H ####[facility] Mapnunoazn[address] [place], [place] [address]Dr. Garima Pulliam PLT 222 103/ul Normal 150-450 [facility] Comment on above: Performed By: #### H H ####[facility] Umvscvqdra8515 [place] [id number]. Garima Pulliam RBC 5.04 106/ul Normal 4.70-6.10 [facility] Comment on above: Performed By: #### H H ####[facility] Sewmgqrxgn6150 [place] [id number]. Garima Pulliam WBC 8.7 103/ul Normal 4.0-11.0 [facility] Comment on above: Performed By: #### H H ####[facility] Rsxxvycenn4283 [place] [id number]. Garima Pulliam LIPID PROFILEon 03-27-2023 CHOL-HDL RATIO NORM SEE BELOW Normal [facility] Comment on above: Result Comment: 3.3 - 4.4 LOW RISK 4.4 - 7.1 AVERAGE RISK 7.1 - 11.0 MODERATE RISK >11.0 HIGH RISK Performed By: #### C MP, BNP, LIPID ####[facility] Xukighfddp5747 [place] [address]Dr. Garima Pulliam Cholesterol [Mass/Vol] 113 mg/dL Normal <=200 [facility] Comment on above: Performed By: #### C MP, BNP, LIPID ####[facility] Loxbtqiezj40[address] [place] [address]Dr. Garima Pulliam Cholesterol in HDL [Mass/Vol] 51 mg/dL Normal 40-60 [facility] Comment on above: Performed By: #### C MP, BNP, LIPID ####[facility] Vwndzwffbw2296 [place] [address]Dr. Garima Pulliam Cholesterol in LDL [Mass/Vol] 49.8 mg/dL Normal [facility] Comment on above: Performed By: #### C MP, BNP, LIPID ####[facility] Jhazmfmedg0160 [place] [address]Dr. Garima Pulliam Cholesterol.total/Cho lesterol in HDL [Mass ratio] 2.2 {ratio} Normal [facility] Comment on above: Performed By: #### C MP, BNP, LIPID ####[facility] Crgbfsqxrv7735 [place] [address]Dr. Garima Pulliam HDL NORMAL > or = 60 mg/dl - LOW CARDIOVASCULAR RISK <40 mg/dl - HIGH CARDIOVASCULAR RISK Normal [facility] Comment on above: Performed By: #### C MP, BNP, LIPID ####[facility] Gpvkldcujz5259 [place] [address]Dr. Garima Pulliam LDL CALC NORMAL SEE BELOW Normal [facility] Comment on above: Result Comment: <100 mg/dl OPTIMAL 100 - 129 mg/dl NEAR OR ABOVE OPTIMAL 130 - 159 mg/dl BORDERLINE HIGH 160 - 189 mg/dl HIGH >190 mg/dl VERY HIGH Performed By: #### C MP, BNP, LIPID ####[facility] Gbdvmrkwkd0530 [place] [address]Dr. Garima Pulliam Triglyceride [Mass/Vol] 61 mg/dL Normal <=150 [facility] Comment on above: Performed By: #### C MP, BNP, LIPID ####[facility] Urcizabovu4770 [place] [address]Dr. Garima Pulliam VLDL CALC 12.2 mg/dL Normal [facility] Comment on above: Performed By: #### C MP, BNP, LIPID ####[facility] Pnahukmqcz1479 [place] [address]Dr. Garima Pulliam PROF 14(COMP METB)on 023 Albumin [Mass/Vol] 3.5 g/dL Normal 3.4-5.0 [facility] Comment on above: Performed By: #### C MP, BNP, LIPID ####[facility] Vizxiasbge8349 [place] [address]Dr. Garima Pulliam Albumin/Globulin [Mass ratio] 1.2 {ratio} Normal [facility] Comment on above: Performed By: #### C MP, BNP, LIPID ####[facility] Ufywpglmba5625 [place] [address]Dr. Garima Pulliam ALP [Catalytic activity/Vol] 82 U/L Normal 46-116 [facility] Comment on above: Performed By: #### C MP, BNP, LIPID ####[facility] Nzwbeqmoec6466 [place] [address]Dr. Garima Pulliam ALT [Catalytic activity/Vol] 33 U/L Normal 16-63 [facility] Comment on above: Performed By: #### C MP, BNP, LIPID ####[facility] Wnmqufgdyb3012 [place] [address]Dr. Garima Pulliam Anion gap [Moles/Vol] 9.9 mmol/L Normal [facility] Comment on above: Performed By: #### C MP, BNP, LIPID ####[facility] Coznaylejl1846 [place] [address]Dr. Garima Pulliam AST [Catalytic activity/Vol] 24 U/L Normal 15-37 [facility] Comment on above: Performed By: #### C MP, BNP, LIPID ####[facility] Ofbdrsaiag0308 [place] [address]Dr. Garima Pulliam Bilirubin [Mass/Vol] 0.6 mg/dL Normal 0.2-1.0 [facility] Comment on above: Performed By: #### C MP, BNP, LIPID ####[facility] Pkbfglsofo6885 [place] [address]Dr. Garima Pulliam Calcium [Mass/Vol] 9.2 mg/dL Normal 8.5-10.1 [facility] Comment on above: Performed By: #### C MP, BNP, LIPID ####[facility] Gidezamnej2557 [place] [address]Dr. Garima Pulliam Chloride [Moles/Vol] 106 mmol/L Normal 98-107 [facility] Comment on above: Performed By: #### C MP, BNP, LIPID ####[facility] Hcqfpnqsgs6452 [place] [address]Dr. Garima Pulliam CO2 [Moles/Vol] 32.3 mmol/L Critically high 21.0-32.0 [facility] Comment on above: Performed By: #### C MP, BNP, LIPID ####[facility] Slpnmhxvtk6786 [place] [address]Dr. Garima Pulliam Creatinine [Mass/Vol] 0.70 mg/dL Normal 0.70-1.30 [facility] Comment on above: Performed By: #### C MP, BNP, LIPID ####[facility] Ywkqtjnhwm0310 [place] [id number]. Garima Pulliam EGFR-AF TONGAN >60 Normal >=60 [facility] Comment on above: Performed By: #### C MP, BNP, LIPID ####[facility] Rdabwrwlvc3078 [place] [id number]. Garima Pulliam EGFR-NON AF TONGAN >60 Normal >=60 [facility] Comment on above: Performed By: #### C MP, BNP, LIPID ####[facility] Mfsljgfngk1388 [place] [address]Dr. Garima Pulliam Globulin (S) [Mass/Vol] 2.9 g/dL Normal [facility] Comment on above: Performed By: #### C MP, BNP, LIPID ####[facility] Zjzkzqirab9851 [place] [address]Dr. Garima Pulliam Glucose [Mass/Vol] 111 mg/dL Critically high 74-106 [facility] Comment on above: Performed By: #### C MP, BNP, LIPID ####[facility] Cavpgdtqxv8754 [place] [address]Dr. Garima Pulliam Potassium [Moles/Vol] 4.2 mmol/L Normal 3.5-5.1 [facility] Comment on above: Performed By: #### C MP, BNP, LIPID ####[facility] Envvoltsry7735 [place] [address]Dr. Garima Pulliam Protein [Mass/Vol] 6.4 g/dL Normal 6.4-8.2 [facility] Comment on above: Performed By: #### C MP, BNP, LIPID ####[facility] Jogqokcmrm5242 [place] [address]Dr. Garima Pulliam Sodium [Moles/Vol] 144 mmol/L Normal 136-145 [facility] Comment on above: Performed By: #### C MP, BNP, LIPID ####[facility] Kcomsuexhy4321 [place] [address]Dr. Garima Pulliam Urea nitrogen [Mass/Vol] 7.0 mg/dL Normal 7.0-18.0 [facility] Comment on above: Performed By: #### C MP, BNP, LIPID ####[facility] Vxjbutnnvj[address] [place], [place] [address]Dr. Garima Pulliam Urea nitrogen/Creatinine [Mass ratio] 10.0 mg/mg Normal [facility] Comment on above: Performed By: #### C MP, BNP, LIPID ####[facility] Dvqkyevqvs47[address] [place], [place] [address]Dr. Garima Pulliam BNPon 03-22-2023 Natriuretic peptide B (Bld) [Mass/Vol] 103.0 pg/mL Normal <=900.0 [facility] Comment on above: Performed By: #### B PROCESS INSPECTOR, BMP ####[facility] Absxsvesrr13[address] [place], [place] [address]Dr. Garima Pulliam CBC AUTO DIFFon 03-22-2023 BASO # 0.0 103/ul Normal 0.0-0.1 [facility] Comment on above: Performed By: #### C BC ####[facility] Neykwhbxru[address] [place], [place] [address]Dr. Garima Heraclio Basophils/100 WBC (Bld) 0.3 % Normal 0.2-2.0 [facility] Comment on above: Performed By: #### C BC ####[facility] Aemijnooti27[address] [place], [place] [address]Dr. Garima Pulliam EO # 0.2 103/ul Normal 0.0-0.7 [facility] Comment on above: Performed By: #### C BC ####[facility] Qtctswiyof43[address] [place], [place] [address]Dr. Garima Pulliam Eosinophils/100 WBC (Bld) 2.2 % Normal 0.9-7.0 [facility] Comment on above: Performed By: #### C BC ####[facility] Nzasthxxlz0[address] [place], [place] [address]Dr. Garima Pulliam Erythrocyte distribution width (RBC) [Ratio] 13.2 % Normal 11.0-15.0 [facility] Comment on above: Performed By: #### C BC ####[facility] Npyrcbtcuo7028 [place] [id number]. Garima Pulliam Hematocrit (Bld) [Volume fraction] 43.4 % Normal 42.0-54.0 [facility] Comment on above: Performed By: #### C BC ####[facility] Pgvvsyvqco6975 [place] [address]Dr. Garima Heraclio Hemoglobin (Bld) [Mass/Vol] 14.3 g/dL Normal 14.0-18.0 [facility] Comment on above: Performed By: #### C BC ####[facility] Fomepedhdz1852 [place] [address]Dr. Garima Pulliam IG # 0.02 10e3/ul Normal 0.00-0.03 [facility] Comment on above: Performed By: #### C BC ####[facility] Jyzhuhzqcg7337 [place] [address]Dr. Garima Pulliam IG % 0.3 % Normal 0.0-0.5 [facility] Comment on above: Performed By: #### C BC ####[facility] Wlhdpqsrjo5215 [place] [address]Dr. Chapisrenu Pulliam LYMPH # 2.0 103/ul Normal 1.2-3.8 [facility] Comment on above: Performed By: #### C BC ####[facility] Laqcpvhqov8580 [place] [address]Dr. Chapisrenu Pulliam Lymphocytes/100 WBC (Bld) 24.8 % Normal 20.5-60.0 [facility] Comment on above: Performed By: #### C BC ####[facility] Cxvasoamsn5460 [place] [address]Dr. Chapisrenu Pulliam MANUAL DIFF REQ NO Normal [facility] Comment on above: Performed By: #### C BC ####[facility] Vjkbhmenqy3402 [place] [address]Dr. Garima Heraclio MCH (RBC) [Entitic mass] 30.0 pg Normal 25.9-34.0 [facility] Comment on above: Performed By: #### C BC ####[facility] Dpscvxujip7[address] [place], [place] [address]Dr. Garima Pulliam MCHC (RBC) [Mass/Vol] 32.9 g/dL Normal 29.9-35.2 [facility] Comment on above: Performed By: #### C BC ####[facility] Dpytkexdbf5201 [place] [id number]. Garima Pulliam MCV (RBC) [Entitic vol] 91.0 fL Normal 80.0-94.0 [facility] Comment on above: Performed By: #### C BC ####[facility] Xixlcyexyz8651 [place] [id number]. Garima Heraclio MONO # 0.8 103/ul Normal 0.3-0.8 [facility] Comment on above: Performed By: #### C BC ####[facility] Humfzflyik5306 [place] [address]Dr. Chapisrenu Pulliam Monocytes/100 WBC (Bld) 9.7 % Normal 1.7-12.0 [facility] Comment on above: Performed By: #### C BC ####[facility] Diemdmjjml8665 [place] [address]Dr. Garima Pulliam NEUT # 4.9 103/ul Normal 1.4-6.5 [facility] Comment on above: Performed By: #### C BC ####[facility] Wlreemswvw8678 [place] [id number]. Garima Heraclio Neutrophils/100 WBC (Bld) 62.7 % Normal 43.0-75.0 [facility] Comment on above: Performed By: #### C BC ####[facility] Lnoxjbcjra3188 [place] [id number]. Garima Heraclio Platelet mean volume (Bld) [Entitic vol] 8.8 fL Critically low 9.5-13.5 [facility] Comment on above: Performed By: #### C BC ####[facility] Uaeugswvve4965 [place] [id number]. Garima Heraclio PLT 198 103/ul Normal 150-450 [facility] Comment on above: Performed By: #### C BC ####[facility] Ijocxiutzk7256 [place] [id number]. Garima Heraclio RBC 4.77 106/ul Normal 4.70-6.10 [facility] Comment on above: Performed By: #### C BC ####[facility] Qptedtlsqq1858 [place] [id number]. Garima Heraclio WBC 7.9 103/ul Normal 4.0-11.0 [facility] Comment on above: Performed By: #### C BC ####[facility] Viidoqolsn6647 [place] [id number]. Garima Heraclio D-DIMERon 03-22-2023 D-DIMER 0.85 mg/L FEU Critically high <=0.59 [facility] Comment on above: Performed By: #### D DIM ####[facility] Bbxkqfoxku2295 [place] [address]Dr. Garima Pluliam D-DIMER COMMENTS SEE BELOW Normal [facility] [...] hospitalization. Performed By: #### D DIM ####[facility] Rqhmfnqnsf[address] [place], [place] [address]Dr. Garima Pulliam PROF CHEM 8 (BAS METB)on Anion gap [Moles/Vol] 6.9 mmol/L Normal [facility] Comment on above: Performed By: #### B PROCESS INSPECTOR, BMP ####[facility] Emtrdotmcm7716 [place] [address]Dr. Garima Pulliam Calcium [Mass/Vol] 8.9 mg/dL Normal 8.5-10.1 [facility] Comment on above: Performed By: #### B PROCESS INSPECTOR, BMP ####[facility] Srprfycopw5219 [place] [address]Dr. Garima Pulliam Chloride [Moles/Vol] 101 mmol/L Normal 98-107 [facility] Comment on above: Performed By: #### B PROCESS INSPECTOR, BMP ####[facility] Bnxjgjbjya65[address] [place], [place] [address]Dr. Chapisrenu Heraclio CO2 [Moles/Vol] 30.7 mmol/L Normal 21.0-32.0 [facility] Comment on above: Performed By: #### B PROCESS INSPECTOR, BMP ####[facility] Pdmeqfjscd064[address] [place], [place] [address]Dr. Garima Pulliam Creatinine [Mass/Vol] 0.82 mg/dL Normal 0.70-1.30 [facility] Comment on above: Performed By: #### B PROCESS INSPECTOR, BMP ####[facility] Kblnqwsbei37[address] [place], [place] [address]Dr. Garima Pulliam EGFR-AF TONGAN >60 Normal >=60 [facility] Comment on above: Performed By: #### B PROCESS INSPECTOR, BMP ####[facility] Vcjbjfynhn18[address] [place], [place] [address]Dr. Chapisrenu Heraclio EGFR-NON AF TONGAN >60 Normal >=60 [facility] Comment on above: Performed By: #### B PROCESS INSPECTOR, BMP ####[facility] Eiecbraqfw85[address] [place], [place] [address]Dr. Garima Pulliam Glucose [Mass/Vol] 339 mg/dL Critically high 74-106 [facility] Comment on above: Performed By: #### B PROCESS INSPECTOR, BMP ####[facility] Upvuvfobla57[address] [place], [place] [address]Dr. Garima Pulliam Potassium [Moles/Vol] 3.6 mmol/L Normal 3.5-5.1 [facility] Comment on above: Performed By: #### B PROCESS INSPECTOR, BMP ####[facility] Hnvucjsnxs379[address] [place], [place] [address]Dr. Garima Pulliam Sodium [Moles/Vol] 135 mmol/L Critically low 136-145 [facility] Comment on above: Performed By: #### B PROCESS INSPECTOR, BMP ####[facility] Lwnrmcqdfz0[address] [place], [place] [address]Dr. Garima Pulliam Urea nitrogen [Mass/Vol] 11.0 mg/dL Normal 7.0-18.0 [facility] Comment on above: Performed By: #### B PROCESS INSPECTOR, BMP ####[facility] Jkxsushlsq6680[address] [place], [place] [address]Dr. Garima Pulliam Urea nitrogen/Creatinine [Mass ratio] 13.4 mg/mg Normal [facility] Comment on above: Performed By: #### B PROCESS INSPECTOR, BMP ####[facility] Rvxktzsjpi7[address] [place], [place] [address]Dr. Garima Pulliam US VERONICA DOP LEG BILon 023 US VERONICA DOP LEG BENOIT Normal [facility] BNPon 03-18-2023 Natriuretic peptide B (Bld) [Mass/Vol] 226.0 pg/mL Normal <=900.0 [facility] Comment on above: Performed By: #### B PROCESS INSPECTOR, BMP ####[facility] Zdcjnoyrom15[address] [place], [place] [address]Dr. Garima Pulliam CBC AUTO DIFFon 03-18-2023 BASO # 0.0 103/ul Normal 0.0-0.1 [facility] Comment on above: Performed By: #### C BC ####[facility] Uawmxdcnyq840[address] [place], [place] [address]Dr. Garima Heraclio Basophils/100 WBC (Bld) 0.2 % Normal 0.2-2.0 [facility] Comment on above: Performed By: #### C BC ####[facility] Wstzhxeyym99[address] [place], [place] [address]Dr. Garima Pulliam EO # 0.3 103/ul Normal 0.0-0.7 [facility] Comment on above: Performed By: #### C BC ####[facility] Dkizaimpxn175[address] [place], [place] [address]Dr. Garima Heraclio Eosinophils/100 WBC (Bld) 2.5 % Normal 0.9-7.0 [facility] Comment on above: Performed By: #### C BC ####[facility] Hiwezrmauq01[address] [place], [place] [address]Dr. Garima Heraclio Erythrocyte distribution width (RBC) [Ratio] 13.2 % Normal 11.0-15.0 [facility] Comment on above: Performed By: #### C BC ####[facility] Qjdqbhabxj2910 [place] [address]DrAdalberto Pulliam Hematocrit (Bld) [Volume fraction] 45.8 % Normal 42.0-54.0 [facility] Comment on above: Performed By: #### C BC ####[facility] Phswpuffqy7767 [place] [address]DrAdalberto Pulliam Hemoglobin (Bld) [Mass/Vol] 15.3 g/dL Normal 14.0-18.0 [facility] Comment on above: Performed By: #### C BC ####[facility] Cqktscsmvz[address] [place], [place] [address]DrAdalberto Pulliam IG # 0.02 10e3/ul Normal 0.00-0.03 [facility] Comment on above: Performed By: #### C BC ####[facility] Ghjatwxogx34[address] [place], [place] [address]DrAdalberto Pulliam IG % 0.2 % Normal 0.0-0.5 [facility] Comment on above: Performed By: #### C BC ####[facility] Lwabipvnnh[address] [place], [place] [address]DrAdalberto Pulliam LYMPH # 1.8 103/ul Normal 1.2-3.8 [facility] Comment on above: Performed By: #### C BC ####[facility] Vviwdoobde[address] [place], [place] [address]DrAdalberto Pulliam Lymphocytes/100 WBC (Bld) 18.3 % Critically low 20.5-60.0 [facility] Comment on above: Performed By: #### C BC ####[facility] Iapqftadoo[address] [place], [place] [address]DrAdalberto Pulliam MANUAL DIFF REQ NO Normal [facility] Comment on above: Performed By: #### C BC ####[facility] Zjcqlitdwa1008 [place] [address]DrAdalberto Pulliam MCH (RBC) [Entitic mass] 30.5 pg Normal 25.9-34.0 [facility] Comment on above: Performed By: #### C BC ####[facility] Alvayysnng2146 [place] [address]DrAdalberto Pulliam MCHC (RBC) [Mass/Vol] 33.4 g/dL Normal 29.9-35.2 [facility] Comment on above: Performed By: #### C BC ####[facility] Qdzlaykgzk2188 [place] [id number] Pulliam MCV (RBC) [Entitic vol] 91.2 fL Normal 80.0-94.0 [facility] Comment on above: Performed By: #### C BC ####[facility] Bifmfjrdq[address] [place], [place] [address]DrAdalberto Pulliam MONO # 0.8 103/ul Normal 0.3-0.8 [facility] Comment on above: Performed By: #### C BC ####[facility] Eybpojunqd8575[address] [place], [place] [address]DrAdalberto Pulliam Monocytes/100 WBC (Bld) 7.6 % Normal 1.7-12.0 [facility] Comment on above: Performed By: #### C BC ####[facility] Wxvrwyhnvh25[address] [place], [place] [address]DrAdalberto Pulliam NEUT # 7.0 103/ul Critically high 1.4-6.5 [facility] Comment on above: Performed By: #### C BC ####[facility] Wrqeogvjen[address] [place], [place] [address]DrAdalberto Pulliam Neutrophils/100 WBC (Bld) 71.2 % Normal 43.0-75.0 [facility] Comment on above: Performed By: #### C BC ####[facility] Dwutcsgmiv1367[address] [place], [place] [address]DrAdalberto Pulliam Platelet mean volume (Bld) [Entitic vol] 8.9 fL Critically low 9.5-13.5 [facility] Comment on above: Performed By: #### C BC ####[facility] Oriepztibj4389[address] [place], [place] [address]DrAdalberto Pulliam PLT 217 103/ul Normal 150-450 [facility] Comment on above: Performed By: #### C BC ####[facility] Qabqarrxnh1806 [place] [address]Dr. Garima Heraclio RBC 5.02 106/ul Normal 4.70-6.10 [facility] Comment on above: Performed By: #### C BC ####[facility] Gqiyopymmm16[address] [place], [place] [address]Dr. Garima Pulliam WBC 9.8 103/ul Normal 4.0-11.0 [facility] Comment on above: Performed By: #### C BC ####[facility] Ywejjeadjx1725[address] [place], [place] [address]Dr. Garima Heraclio CRPon 03-18-2023 CRP 0.1 mg/dL Normal <=1.0 [facility] Comment on above: Performed By: #### C RP ####[facility] Scedkgqmww609[address] [place], [place] [address]Dr. Gariam Heraclio PROF CHEM 8 (BAS METB)on Anion gap [Moles/Vol] 10.4 mmol/L Normal [facility] Comment on above: Performed By: #### B PROCESS INSPECTOR, BMP ####[facility] Njtxzcxawm[address] [place], [place] [address]Dr. Garima Heraclio Calcium [Mass/Vol] 8.8 mg/dL Normal 8.5-10.1 [facility] Comment on above: Performed By: #### B PROCESS INSPECTOR, BMP ####[facility] Mvhatfotja[address] [place], [place] [address]Dr. Garima Heraclio Chloride [Moles/Vol] 97 mmol/L Critically low 98-107 [facility] Comment on above: Performed By: #### B PROCESS INSPECTOR, BMP ####[facility] Ramoofxvge5920[address] [place], [place] [address]Dr. Garima Pulliam CO2 [Moles/Vol] 31.2 mmol/L Normal 21.0-32.0 [facility] Comment on above: Performed By: #### B PROCESS INSPECTOR, BMP ####[facility] Fcidwovzrg044[address] [place], [place] [address]Dr. Garima Pulliam Creatinine [Mass/Vol] 0.91 mg/dL Normal 0.70-1.30 [facility] Comment on above: Performed By: #### B PROCESS INSPECTOR, BMP ####[facility] Izmdwrwjil2836 [place] [address]Dr. Garima Pulliam EGFR-AF TONGAN >60 Normal >=60 [facility] Comment on above: Performed By: #### B PROCESS INSPECTOR, BMP ####[facility] Lhvbuktbmh5516 [place] [id number]. Garima Pulliam EGFR-NON AF TONGAN >60 Normal >=60 [facility] Comment on above: Performed By: #### B PROCESS INSPECTOR, BMP ####[facility] Vrlqzqoidc7409 [place] [address]Dr. Garima Pulliam Glucose [Mass/Vol] 315 mg/dL Critically high 74-106 [facility] Comment on above: Performed By: #### B PROCESS INSPECTOR, BMP ####[facility] Khezpvcvzv4063 [place] [address]Dr. Garima Pulliam Potassium [Moles/Vol] 3.6 mmol/L Normal 3.5-5.1 [facility] Comment on above: Performed By: #### B PROCESS INSPECTOR, BMP ####[facility] Wwvtiqdqgl6144 [place] [address]Dr. Garima Pulliam Sodium [Moles/Vol] 135 mmol/L Critically low 136-145 [facility] Comment on above: Performed By: #### B PROCESS INSPECTOR, BMP ####[facility] Bzpkifcmjd4414 [place] [address]Dr. Garima Pulliam Urea nitrogen [Mass/Vol] 7.0 mg/dL Normal 7.0-18.0 [facility] Comment on above: Performed By: #### B PROCESS INSPECTOR, BMP ####[facility] Smkvjgzdzz0597 [place] [address]Dr. Garima Pulliam Urea nitrogen/Creatinine [Mass ratio] 7.7 mg/mg Normal [facility] Comment on above: Performed By: #### B PROCESS INSPECTOR, BMP ####[facility] Fojejvjihm2034 [place] [address]Dr. Garima Pulliam SED RATE WESTERGRENon 2022 SED RATE 8 mm/hr Normal <=20 [facility] Comment on above: Performed By: #### S EDR ####[facility] Kvysqzirtf9[address] [place], [place] [address]Dr. Garima Pulliam BNPon 03-16-2023 Natriuretic peptide B (Bld) [Mass/Vol] 241.0 pg/mL Normal <=900.0 [facility] Comment on above: Performed By: #### B PROCESS INSPECTOR, BMP, HSTROPN ####[facility] Kjaysrozrs7165[address] [place], [place] [address]Dr. Garima Heraclio CBC AUTO DIFFon 03-16-2023 BASO # 0.0 103/ul Normal 0.0-0.1 [facility] Comment on above: Performed By: #### C BC ####[facility] Ggeqckvjiw0626[address] [place], [place] [address]Dr. Chapisrenu Pulliam Basophils/100 WBC (Bld) 0.2 % Normal 0.2-2.0 [facility] Comment on above: Performed By: #### C BC ####[facility] Ulseiewyob224[address] [place], [place] [address]Dr. Garima Pulliam EO # 0.2 103/ul Normal 0.0-0.7 [facility] Comment on above: Performed By: #### C BC ####[facility] Yyswwpcnsx605[address] [place], [place] [address]Dr. Chapisrenu Pulliam Eosinophils/100 WBC (Bld) 2.7 % Normal 0.9-7.0 [facility] Comment on above: Performed By: #### C BC ####[facility] Xxeqxmatpa3974[address] [place], [place] [address]Dr. Garima Pulliam Erythrocyte distribution width (RBC) [Ratio] 13.1 % Normal 11.0-15.0 [facility] Comment on above: Performed By: #### C BC ####[facility] Jkuzpqjwot3875[address] [place], [place] [address]Dr. Garima Pulliam Hematocrit (Bld) [Volume fraction] 41.8 % Critically low 42.0-54.0 [facility] Comment on above: Performed By: #### C BC ####[facility] Phpqdcwjdj9608 [place] [address]Dr. Garima Pulliam Hemoglobin (Bld) [Mass/Vol] 14.0 g/dL Normal 14.0-18.0 [facility] Comment on above: Performed By: #### C BC ####[facility] Nneksthrym1270 [place] [address]Dr. Garima Pulliam IG # 0.03 10e3/ul Normal 0.00-0.03 [facility] Comment on above: Performed By: #### C BC ####[facility] Wlaocuxfal9477 [place] [address]Dr. Garima Pulliam IG % 0.3 % Normal 0.0-0.5 [facility] Comment on above: Performed By: #### C BC ####[facility] Yibyhowxbq248[address] [place], [place] [address]Dr. Chapisrenu Pulliam LYMPH # 2.1 103/ul Normal 1.2-3.8 [facility] Comment on above: Performed By: #### C BC ####[facility] Nurqotrdwq8[address] [place], [place] [address]Dr. Chapisrenu Pulliam Lymphocytes/100 WBC (Bld) 24.2 % Normal 20.5-60.0 [facility] Comment on above: Performed By: #### C BC ####[facility] Knfpwzihjp9752 [place] [address]Dr. Garima Pulliam MANUAL DIFF REQ NO Normal [facility] Comment on above: Performed By: #### C BC ####[facility] Wspgghdvtp1807 [place] [address]Dr. Garima Pulliam MCH (RBC) [Entitic mass] 30.2 pg Normal 25.9-34.0 [facility] Comment on above: Performed By: #### C BC ####[facility] Dvoakfltgo7736 [place] [address]Dr. Garima Pulliam MCHC (RBC) [Mass/Vol] 33.5 g/dL Normal 29.9-35.2 [facility] Comment on above: Performed By: #### C BC ####[facility] Qgudnemnij0791 [place] [id number]. Garima Pulliam MCV (RBC) [Entitic vol] 90.1 fL Normal 80.0-94.0 [facility] Comment on above: Performed By: #### C BC ####[facility] Zibjxmqpzg8207 [place] [id number]. Garima Pulliam MONO # 0.6 103/ul Normal 0.3-0.8 [facility] Comment on above: Performed By: #### C BC ####[facility] Lqasmrkzkr4590 [place] [address]Dr. Garima Heraclio Monocytes/100 WBC (Bld) 7.4 % Normal 1.7-12.0 [facility] Comment on above: Performed By: #### C BC ####[facility] Cwknvumewf[address] [place], [place] [address]Dr. Garima Pulliam NEUT # 5.6 103/ul Normal 1.4-6.5 [facility] Comment on above: Performed By: #### C BC ####[facility] Edtcgjujgw2820[address] [place], [place] [address]Dr. Garima Heraclio Neutrophils/100 WBC (Bld) 65.2 % Normal 43.0-75.0 [facility] Comment on above: Performed By: #### C BC ####[facility] Chikzrawmp8844 [place] [id number]. Garima Heraclio Platelet mean volume (Bld) [Entitic vol] 8.7 fL Critically low 9.5-13.5 [facility] Comment on above: Performed By: #### C BC ####[facility] Abacxgzoyb[address] [place], [place] [id number]. Garima Heraclio PLT 195 103/ul Normal 150-450 [facility] Comment on above: Performed By: #### C BC ####[facility] Hrjlsjpapk4170 [place] [id number]. Garima Pulliam RBC 4.64 106/ul Critically low 4.70-6.10 [facility] Comment on above: Performed By: #### C BC ####[facility] Cahkknbdej1373 [place] [address]Dr. Garima Pulliam WBC 8.6 103/ul Normal 4.0-11.0 [facility] Comment on above: Performed By: #### C BC ####[facility] Hakdsnugbd0002 [place] [address]Dr. Garima Pulliam PROF CHEM 8 (BAS METB)on Anion gap [Moles/Vol] 6.7 mmol/L Normal [facility] Comment on above: Performed By: #### B PROCESS INSPECTOR, BMP, HSTROPN ####[facility] Mvmvfhiaft4114 [place] [address]Dr. Garima Pulliam Calcium [Mass/Vol] 8.8 mg/dL Normal 8.5-10.1 [facility] Comment on above: Performed By: #### B PROCESS INSPECTOR, BMP, HSTROPN ####[facility] Mrifztqeon3[address] [place], [place] [address]Dr. Garima Pulliam Chloride [Moles/Vol] 106 mmol/L Normal 98-107 [facility] Comment on above: Performed By: #### B PROCESS INSPECTOR, BMP, HSTROPN ####[facility] Yutytlrdjy8[address] [place], [place] [address]Dr. Garima Pulliam CO2 [Moles/Vol] 31.4 mmol/L Normal 21.0-32.0 [facility] Comment on above: Performed By: #### B PROCESS INSPECTOR, BMP, HSTROPN ####[facility] Einjnmiuac51[address] [place], [place] [address]Dr. Garima Pulliam Creatinine [Mass/Vol] 0.75 mg/dL Normal 0.70-1.30 [facility] Comment on above: Performed By: #### B PROCESS INSPECTOR, BMP, HSTROPN ####[facility] Vwzutpjsio4394 [place] [address]Dr. Garima Pulliam EGFR-AF TONGAN >60 Normal >=60 [facility] Comment on above: Performed By: #### B PROCESS INSPECTOR, BMP, HSTROPN ####[facility] Enmphzzyys5425 [place] [address]Dr. Garima Pulliam EGFR-NON AF TONGAN >60 Normal >=60 [facility] Comment on above: Performed By: #### B PROCESS INSPECTOR, BMP, HSTROPN ####[facility] Ewrvfoiqbj7413 [place] [address]Dr. Garima Pulliam Glucose [Mass/Vol] 161 mg/dL Critically high 74-106 [facility] Comment on above: Performed By: #### B PROCESS INSPECTOR, BMP, HSTROPN ####[facility] Myrqnqqwgo2473 [place] [address]Dr. Garima Pulliam Potassium [Moles/Vol] 4.1 mmol/L Normal 3.5-5.1 [facility] Comment on above: Performed By: #### B PROCESS INSPECTOR, BMP, HSTROPN ####[facility] Mzdtlkthzp6390 [place] [address]Dr. Garima Pulliam Sodium [Moles/Vol] 140 mmol/L Normal 136-145 [facility] Comment on above: Performed By: #### B PROCESS INSPECTOR, BMP, HSTROPN ####[facility] Lfzwahdogo9898 [place] [address]Dr. Garima Pulliam Urea nitrogen [Mass/Vol] 7.0 mg/dL Normal 7.0-18.0 [facility] Comment on above: Performed By: #### B PROCESS INSPECTOR, BMP, HSTROPN ####[facility] Emlvthetza4458 [place] [address]Dr. Garima Pulliam Urea nitrogen/Creatinine [Mass ratio] 9.3 mg/mg Normal [facility] Comment on above: Performed By: #### B PROCESS INSPECTOR, BMP, HSTROPN ####[facility] Stqbqiorcu0954 [place] [address]Dr. Garima Pulliam TROPONIN, HIGH SENSITIVITYon 03-16-2023 HSTROP 9.7 pg/mL Normal 4.0-76.1 [facility] Comment on above: Result Comment: CUT- OFF POINTS HAVE BEEN ESTABLISHED BASED ON THE FOURTH UNIVERSAL DEFINITIONS OF MYOCARDIALINFARCTION. THE UPPER REFERENCE LIMIT (URL) OF TROPONIN, DEFINED THE 99TH PERCENTILE OFcTnI DISTRIBUTION IN A REFERENCE POPULATION, HAS BEEN CONFIRMED THE DECISION THRESHOLDFOR WA DIAGNOSIS. Performed By: #### B PROCESS INSPECTOR, BMP, HSTROPN ####[facility] Mcdiffweqm8328 [place] [address]Dr. Garima Pulliam XR CHEST 1 Von 03-16-2023 XR CHEST 1 V Normal [facility] BNPon 03-06-2023 Natriuretic peptide B (Bld) [Mass/Vol] 111.0 pg/mL Normal <=900.0 [facility] Comment on above: Performed By: #### C MP, BNP, CK ####[facility] Rfrfhezhng8862 [place] [address]Dr. Chapisrenu Pulliam CBC AUTO DIFFon 03-06-2023 BASO # 0.0 103/ul Normal 0.0-0.1 [facility] Comment on above: Performed By: #### C BC ####[facility] Faoofdbyjv4[address] [place], [place] [address]Dr. Garima Pulliam Basophils/100 WBC (Bld) 0.2 % Normal 0.2-2.0 [facility] Comment on above: Performed By: #### C BC ####[facility] Atfjxewbhl04[address] [place], [place] [address]Dr. Garima Pulliam EO # 0.3 103/ul Normal 0.0-0.7 [facility] Comment on above: Performed By: #### C BC ####[facility] Vlrisffkhk[address] [place], [place] [address]Dr. Garima Pulliam Eosinophils/100 WBC (Bld) 3.5 % Normal 0.9-7.0 [facility] Comment on above: Performed By: #### C BC ####[facility] Klhtcpkmbm4740[address] [place], [place] [address]Dr. Garima Pulliam Erythrocyte distribution width (RBC) [Ratio] 13.3 % Normal 11.0-15.0 [facility] Comment on above: Performed By: #### C BC ####[facility] Qmzvgkwvwf219[address] [place], [place] [address]Dr. Garima Pulliam Hematocrit (Bld) [Volume fraction] 43.7 % Normal 42.0-54.0 [facility] Comment on above: Performed By: #### C BC ####[facility] Jqjsysccoo3041 [place] [address]Dr. Garima Pulliam Hemoglobin (Bld) [Mass/Vol] 14.7 g/dL Normal 14.0-18.0 [facility] Comment on above: Performed By: #### C BC ####[facility] Lqifnlwtve3176 [place] [address]Dr. Chapisrenu Heraclio IG # 0.03 10e3/ul Normal 0.00-0.03 [facility] Comment on above: Performed By: #### C BC ####[facility] Fjzjslydqf9[address] [place], [place] [address]Dr. Garima Pulliam IG % 0.4 % Normal 0.0-0.5 [facility] Comment on above: Performed By: #### C BC ####[facility] Zamppcajkd27[address] [place], [place] [address]Dr. Garima Pulliam LYMPH # 2.0 103/ul Normal 1.2-3.8 [facility] Comment on above: Performed By: #### C BC ####[facility] Wwffztadix287[address] [place], [place] [address]DrAdalberto Pulliam Lymphocytes/100 WBC (Bld) 23.7 % Normal 20.5-60.0 [facility] Comment on above: Performed By: #### C BC ####[facility] Maierumlvw0912 [place] [address]Dr. Garima Pulliam MANUAL DIFF REQ NO Normal [facility] Comment on above: Performed By: #### C BC ####[facility] Wnpezmqwzo7365 [place] [id number] Pulliam MCH (RBC) [Entitic mass] 30.1 pg Normal 25.9-34.0 [facility] Comment on above: Performed By: #### C BC ####[facility] Zszwrsgtvb1661 [place] [id number]. Garima Pulliam MCHC (RBC) [Mass/Vol] 33.6 g/dL Normal 29.9-35.2 [facility] Comment on above: Performed By: #### C BC ####[facility] Utsfphrjns3568 [place] [address]Dr. Garima Heraclio MCV (RBC) [Entitic vol] 89.4 fL Normal 80.0-94.0 [facility] Comment on above: Performed By: #### C BC ####[facility] Nqipakvhta7711 [place] [address]Dr. Garima Pulliam MONO # 0.8 103/ul Normal 0.3-0.8 [facility] Comment on above: Performed By: #### C BC ####[facility] Pfubaqylxs6772 [place] [address]Dr. Garima Pulliam Monocytes/100 WBC (Bld) 9.0 % Normal 1.7-12.0 [facility] Comment on above: Performed By: #### C BC ####[facility] Pngrkufene34[address] [place], [place] [address]Dr. Garima Pulliam NEUT # 5.4 103/ul Normal 1.4-6.5 [facility] Comment on above: Performed By: #### C BC ####[facility] Ubdjjxksme222[address] [place], [place] [address]Dr. Garima Pulliam Neutrophils/100 WBC (Bld) 63.2 % Normal 43.0-75.0 [facility] Comment on above: Performed By: #### C BC ####[facility] Hybllkvvyb213[address] [place], [place] [address]Dr. Garima Pulliam Platelet mean volume (Bld) [Entitic vol] 9.0 fL Critically low 9.5-13.5 [facility] Comment on above: Performed By: #### C BC ####[facility] Guzgvmzosz9[address] [place], [place] [address]Dr. Garima Pulliam PLT 218 103/ul Normal 150-450 [facility] Comment on above: Performed By: #### C BC ####[facility] Idniotchqn1580 [place] [id number]. Garima Pulliam RBC 4.89 106/ul Normal 4.70-6.10 [facility] Comment on above: Performed By: #### C BC ####[facility] Iqngrheavn2450 [place] [address]Dr. Garima Pulliam WBC 8.5 103/ul Normal 4.0-11.0 [facility] Comment on above: Performed By: #### C BC ####[facility] Lezeqzngev0207 [place] [address]Dr. Garima Pulliam CPKon 03-06-2023 CK [Catalytic activity/Vol] 191 U/L Normal 39-308 [facility] Comment on above: Performed By: #### C MP, BNP, CK ####[facility] Gmanxozuyr8805 [place] [address]Dr. Garima Pulliam PROF 14(COMP METB)on 023 Albumin [Mass/Vol] 3.6 g/dL Normal 3.4-5.0 [facility] Comment on above: Performed By: #### C MP, BNP, CK ####[facility] Vlwwvenlow6421 [place] [address]Dr. Garima Pulliam Albumin/Globulin [Mass ratio] 1.2 {ratio} Normal [facility] Comment on above: Performed By: #### C MP, BNP, CK ####[facility] Ygjqhnpwtm5365 [place] [address]Dr. Garima Pulliam ALP [Catalytic activity/Vol] 91 U/L Normal 46-116 [facility] Comment on above: Performed By: #### C MP, BNP, CK ####[facility] Irumvobera3700 [place] [address]Dr. Garima Pulliam ALT [Catalytic activity/Vol] 33 U/L Normal 16-63 [facility] Comment on above: Performed By: #### C MP, BNP, CK ####[facility] Lronekumni2572 [place] [address]Dr. Garima Pulliam Anion gap [Moles/Vol] 10.3 mmol/L Normal [facility] Comment on above: Performed By: #### C MP, BNP, CK ####[facility] Hixffwlfbu0211 [place] [address]Dr. Garima Pulliam AST [Catalytic activity/Vol] 17 U/L Normal 15-37 [facility] Comment on above: Performed By: #### C MP, BNP, CK ####[facility] Kalrowfkng1968 [place] [address]Dr. Garima Pulliam Bilirubin [Mass/Vol] 0.4 mg/dL Normal 0.2-1.0 [facility] Comment on above: Performed By: #### C MP, BNP, CK ####[facility] Etiasoihri9347 [place] [address]Dr. Garima Pulliam Calcium [Mass/Vol] 9.1 mg/dL Normal 8.5-10.1 [facility] Comment on above: Performed By: #### C MP, BNP, CK ####[facility] Zcqwfssbdf3060 [place] [address]Dr. Garima Pulliam Chloride [Moles/Vol] 102 mmol/L Normal 98-107 [facility] Comment on above: Performed By: #### C MP, BNP, CK ####[facility] Kfpjvostps7344 [place] [address]Dr. Garima Pulliam CO2 [Moles/Vol] 29.7 mmol/L Normal 21.0-32.0 [facility] Comment on above: Performed By: #### C MP, BNP, CK ####[facility] Xiuizmendy8471 [place] [address]Dr. Garima Pulliam Creatinine [Mass/Vol] 0.79 mg/dL Normal 0.70-1.30 [facility] Comment on above: Performed By: #### C MP, BNP, CK ####[facility] Fhrjlqlkla[address] [place] [address]Dr. Garima Pulliam EGFR-AF TONGAN >60 Normal >=60 [facility] Comment on above: Performed By: #### C MP, BNP, CK ####[facility] Howlxkwstg73[address] [place] [address]Dr. Garima Pulliam EGFR-NON AF TONGAN >60 Normal >=60 [facility] Comment on above: Performed By: #### C MP, BNP, CK ####[facility] Blvqyngeow[address] [place] [address]Dr. Garima Pulliam Globulin (S) [Mass/Vol] 3.0 g/dL Normal [facility] Comment on above: Performed By: #### C MP, BNP, CK ####[facility] Zifcgzfrsr0288 [place] [address]Dr. Garima Pulliam Glucose [Mass/Vol] 202 mg/dL Critically high 74-106 [facility] Comment on above: Performed By: #### C MP, BNP, CK ####[facility] Vcijgwzhdi1486 [place] [address]Dr. Garima Pulliam Potassium [Moles/Vol] 4.0 mmol/L Normal 3.5-5.1 [facility] Comment on above: Performed By: #### C MP, BNP, CK ####[facility] Ljqjvptlrt6307 [place] [address]Dr. Garima Pulliam Protein [Mass/Vol] 6.6 g/dL Normal 6.4-8.2 [facility] Comment on above: Performed By: #### C MP, BNP, CK ####[facility] V[address]eblv[address] [place], [place] [address]Dr. Garima Pulliam Sodium [Moles/Vol] 138 mmol/L Normal 136-145 [facility] Comment on above: Performed By: #### C MP, BNP, CK ####[facility] Zivegpdwjk[address] [place], [place] [address]Dr. Garima Pulliam Urea nitrogen [Mass/Vol] 10.0 mg/dL Normal 7.0-18.0 [facility] Comment on above: Performed By: #### C MP, BNP, CK ####[facility] Wbcqhuhdle6844 [place] [address]Dr. Garima Pulliam Urea nitrogen/Creatinine [Mass ratio] 12.7 mg/mg Normal [facility] Comment on above: Performed By: #### C MP, BNP, CK ####[facility] Bcsdmewwrr8[address] [place] [address]Dr. Garima Pulliam US VERONICA DOP LEG BILon 023 US VERONICA DOP LEG BENOIT Normal [facility] CBC AUTO DIFFon 01-13-2023 BASO # 0.0 103/ul Normal 0.0-0.1 [facility] Comment on above: Performed By: #### C BC ####[facility] Udmgwmfddp2603 [place] [id number]. Chapisrenu Pulliam Basophils/100 WBC (Bld) 0.0 % Critically low 0.2-2.0 [facility] Comment on above: Performed By: #### C BC ####[facility] Rdgocaubsd6875 [place] [address]Dr. Garima Pulliam EO # 0.0 103/ul Normal 0.0-0.7 [facility] Comment on above: Performed By: #### C BC ####[facility] Ibstoqyyya[address] [place], [place] [address]Dr. Garima Pulliam Eosinophils/100 WBC (Bld) 0.0 % Critically low 0.9-7.0 [facility] Comment on above: Performed By: #### C BC ####[facility] Vlsaxhjucq3979 [place] [address]Dr. Garima Pulliam Erythrocyte distribution width (RBC) [Ratio] 13.2 % Normal 11.0-15.0 [facility] Comment on above: Performed By: #### C BC ####[facility] Qafyjgappc[address] [place], [place] [address]Dr. Garima Pulliam Hematocrit (Bld) [Volume fraction] 46.7 % Normal 42.0-54.0 [facility] Comment on above: Performed By: #### C BC ####[facility] Esudbpofmp[address] [place], [place] [address]Dr. Garima Pulliam Hemoglobin (Bld) [Mass/Vol] 15.6 g/dL Normal 14.0-18.0 [facility] Comment on above: Performed By: #### C BC ####[facility] Kwwwpnspil208[address] [place], [place] [address]Dr. Garima Pulliam IG # 0.01 10e3/ul Normal 0.00-0.03 [facility] Comment on above: Performed By: #### C BC ####[facility] Uiiawfvnja8865 [place] [id number]. Garima Pulliam IG % 0.2 % Normal 0.0-0.5 [facility] Comment on above: Performed By: #### C BC ####[facility] Patnybsydm8901 [place] [id number]. Garima Pulliam LYMPH # 0.8 103/ul Critically low 1.2-3.8 [facility] Comment on above: Performed By: #### C BC ####[facility] Mdvpqrjvot3598 [place] [id number]. Garima Pulliam Lymphocytes/100 WBC (Bld) 12.7 % Critically low 20.5-60.0 [facility] Comment on above: Performed By: #### C BC ####[facility] Lltjeserri9058 [place] [address]Dr. Garima Pulliam MANUAL DIFF REQ NO Normal [facility] Comment on above: Performed By: #### C BC ####[facility] Mttffumooh1066 [place] [id number]. Garima Pulliam MCH (RBC) [Entitic mass] 30.2 pg Normal 25.9-34.0 [facility] Comment on above: Performed By: #### C BC ####[facility] Etcskgmxcp0416 [place] [id number]. Garima Pulliam MCHC (RBC) [Mass/Vol] 33.4 g/dL Normal 29.9-35.2 [facility] Comment on above: Performed By: #### C BC ####[facility] Aysaicbill8292 [place] [id number]. Garima Pulliam MCV (RBC) [Entitic vol] 90.3 fL Normal 80.0-94.0 [facility] Comment on above: Performed By: #### C BC ####[facility] Llvlbdbwrr0703 [place] [id number]. Garima Heraclio MONO # 0.1 103/ul Critically low 0.3-0.8 [facility] Comment on above: Performed By: #### C BC ####[facility] Qzmcjqsxbc8919 [place] [id number]. Garima Pulliam Monocytes/100 WBC (Bld) 0.9 % Critically low 1.7-12.0 [facility] Comment on above: Performed By: #### C BC ####[facility] Diyzdweyzt4470 [place] [id number]. Garima Pulliam NEUT # 5.6 103/ul Normal 1.4-6.5 [facility] Comment on above: Performed By: #### C BC ####[facility] Oikjlgkqaj3165 [place] [id number]. Garima Pulliam Neutrophils/100 WBC (Bld) 86.2 % Critically high 43.0-75.0 [facility] Comment on above: Performed By: #### C BC ####[facility] Vdzmdyjasp2458 [place] [address]Dr. Garima Pulliam Platelet mean volume (Bld) [Entitic vol] 9.1 fL Critically low 9.5-13.5 [facility] Comment on above: Performed By: #### C BC ####[facility] Fpvdeypqcu50[address] [place], [place] [address]Dr. Garima Pulliam PLT 169 103/ul Normal 150-450 [facility] Comment on above: Performed By: #### C BC ####[facility] Kuotzyxfla85[address] [place], [place] [address]Dr. Garima Pulliam RBC 5.17 106/ul Normal 4.70-6.10 [facility] Comment on above: Performed By: #### C BC ####[facility] R[address]lwghczf[address] [place], [place] [id number]. Garima Pulliam WBC 6.5 103/ul Normal 4.0-11.0 [facility] Comment on above: Performed By: #### C BC ####[facility] Phhclrhjnn[address] [place], [place] [address]Dr. Garima Pulliam D-DIMERon 01-13-2023 D-DIMER 0.41 mg/L FEU Normal <=0.59 [facility] Comment on above: Performed By: #### D DIM ####[facility] Krgnztught0694 [place] [address]Dr. Garima Pulliam D-DIMER COMMENTS SEE BELOW Normal [facility] [...] hospitalization. Performed By: #### D DIM ####[facility] Ewishbwxny99[address] [place], [place] [address]Dr. Garima Pulliam PROF 14(COMP METB)on 023 Albumin [Mass/Vol] 3.4 g/dL Normal 3.4-5.0 [facility] Comment on above: Performed By: #### C MP ####[facility] Zjszgkqabl24[address] [place], [place] [address]Dr. Garima Pulliam Albumin/Globulin [Mass ratio] 1.3 {ratio} Normal [facility] Comment on above: Performed By: #### C MP ####[facility] Culxbattrb9[address] [place], [place] [address]Dr. Garima Pulliam ALP [Catalytic activity/Vol] 83 U/L Normal 46-116 [facility] Comment on above: Performed By: #### C MP ####[facility] Uehiybrhev0[address] [place], [place] [address]Dr. Garima Pulliam ALT [Catalytic activity/Vol] 25 U/L Normal 16-63 [facility] Comment on above: Performed By: #### C MP ####[facility] Fgpuktcsmy0739 [place] [address]Dr. Garima Pulliam Anion gap [Moles/Vol] 14.5 mmol/L Normal [facility] Comment on above: Performed By: #### C MP ####[facility] Ryftylyzyr4[address] [place], [place] [address]Dr. Garima Pulliam AST [Catalytic activity/Vol] 19 U/L Normal 15-37 [facility] Comment on above: Performed By: #### C MP ####[facility] Oyspvfbkwl235[address] [place], [place] [address]Dr. Garima Pulliam Bilirubin [Mass/Vol] 0.4 mg/dL Normal 0.2-1.0 [facility] Comment on above: Performed By: #### C MP ####[facility] Rvhycdzpbd20[address] [place], [place] [address]Dr. Garima Pulliam Calcium [Mass/Vol] 8.7 mg/dL Normal 8.5-10.1 [facility] Comment on above: Performed By: #### C MP ####[facility] Ixiqbrfnmz8318[address] [place], [place] [address]Dr. Garima Pulliam Chloride [Moles/Vol] 104 mmol/L Normal 98-107 [facility] Comment on above: Performed By: #### C MP ####[facility] Vxrwkwzgji0240[address] [place], [place] [address]Dr. Garima Pulliam CO2 [Moles/Vol] 24.5 mmol/L Normal 21.0-32.0 [facility] Comment on above: Performed By: #### C MP ####[facility] Ishjoarhmi217[address] [place], [place] [address]Dr. Garima Pulliam Creatinine [Mass/Vol] 0.70 mg/dL Normal 0.70-1.30 [facility] Comment on above: Performed By: #### C MP ####[facility] Yxqkajwpjn[address] [place], [place] [address]Dr. Garima Heraclio EGFR-AF TONGAN >60 Normal >=60 [facility] Comment on above: Performed By: #### C MP ####[facility] Dspilhxket04[address] [place], [place] [address]Dr. Chapisrenu Heraclio EGFR-NON AF TONGAN >60 Normal >=60 [facility] Comment on above: Performed By: #### C MP ####[facility] Frffegugwd4035[address] [place], [place] [address]Dr. Chapisrenu Pulliam Globulin (S) [Mass/Vol] 2.6 g/dL Normal [facility] Comment on above: Performed By: #### C MP ####[facility] Dmklwrddmx2066 [place] [address]Dr. Garima Pulliam Glucose [Mass/Vol] 196 mg/dL Critically high 74-106 [facility] Comment on above: Performed By: #### C MP ####[facility] Norbnxapes4900 [place] [address]Dr. Garima Pulliam Potassium [Moles/Vol] 4.0 mmol/L Normal 3.5-5.1 [facility] Comment on above: Performed By: #### C MP ####[facility] Kgerokmccd2765 [place] [address]Dr. Garima Pulliam Protein [Mass/Vol] 6.0 g/dL Critically low 6.4-8.2 [facility] Comment on above: Performed By: #### C MP ####[facility] Xukrnsxhyu6[address] [place], [place] [address]Dr. Garima Pulliam Sodium [Moles/Vol] 139 mmol/L Normal 136-145 [facility] Comment on above: Performed By: #### C MP ####[facility] Wnpszgclmo4617[address] [place], [place] [address]Dr. Garima Pulliam Urea nitrogen [Mass/Vol] 7.0 mg/dL Normal 7.0-18.0 [facility] Comment on above: Performed By: #### C MP ####[facility] Qrhdbubwhd[address] [place], [place] [address]Dr. Garima Heraclio Urea nitrogen/Creatinine [Mass ratio] 10.0 mg/mg Normal [facility] Comment on above: Performed By: #### C MP ####[facility] Qhywyjqkgs4[address] [place], [place] [address]Dr. Garima Heraclio BNPon 01-12-2023 Natriuretic peptide B (Bld) [Mass/Vol] 141.0 pg/mL Normal <=900.0 [facility] Comment on above: Performed By: #### C MP, BNP, HSTROPN ####[facility] Ovbzaygsbc87[address] [place], [place] [address]Dr. Garima Heraclio CBC AUTO DIFFon 01-12-2023 BASO # 0.0 103/ul Normal 0.0-0.1 [facility] Comment on above: Performed By: #### C BC ####[facility] Plxnnnusrd2134 [place] [id number]. Garima Heraclio Basophils/100 WBC (Bld) 0.2 % Normal 0.2-2.0 [facility] Comment on above: Performed By: #### C BC ####[facility] Kmbbqksgmy2870 [place] [address]Dr. Garima Heraclio EO # 0.2 103/ul Normal 0.0-0.7 [facility] Comment on above: Performed By: #### C BC ####[facility] Bupkieqyjt5694 [place] [address]Dr. Garima Heraclio Eosinophils/100 WBC (Bld) 2.7 % Normal 0.9-7.0 [facility] Comment on above: Performed By: #### C BC ####[facility] Ygozrnjtxa[address] [place], [place] [address]Dr. Garima Pulliam Erythrocyte distribution width (RBC) [Ratio] 13.3 % Normal 11.0-15.0 [facility] Comment on above: Performed By: #### C BC ####[facility] Xfpfyrawqa38[address] [place], [place] [address]Dr. Garima Pulliam Hematocrit (Bld) [Volume fraction] 42.3 % Normal 42.0-54.0 [facility] Comment on above: Performed By: #### C BC ####[facility] Mtwotvywit6[address] [place], [place] [address]Dr. Garima Pulliam Hemoglobin (Bld) [Mass/Vol] 14.3 g/dL Normal 14.0-18.0 [facility] Comment on above: Performed By: #### C BC ####[facility] Qqfggbscrt4[address] [place], [place] [address]Dr. Garima Pulliam IG # 0.02 10e3/ul Normal 0.00-0.03 [facility] Comment on above: Performed By: #### C BC ####[facility] Ldfxmjvbxi7495 [place] [id number]. Garima Pulliam IG % 0.2 % Normal 0.0-0.5 [facility] Comment on above: Performed By: #### C BC ####[facility] Yekwfptzwv5653 [place] [id number]. Garima Pulliam LYMPH # 2.6 103/ul Normal 1.2-3.8 [facility] Comment on above: Performed By: #### C BC ####[facility] Uzfoqqdzjj7545 [place] [id number]. Garima Heraclio Lymphocytes/100 WBC (Bld) 29.6 % Normal 20.5-60.0 [facility] Comment on above: Performed By: #### C BC ####[facility] Yfljnxzlct2821 [place] [address]Dr. Garima Heraclio MANUAL DIFF REQ NO Normal [facility] Comment on above: Performed By: #### C BC ####[facility] Aukmgpinle3076 [place] [id number]. Garima Pulliam MCH (RBC) [Entitic mass] 30.2 pg Normal 25.9-34.0 [facility] Comment on above: Performed By: #### C BC ####[facility] Mztxkjsexg7871 [place] [address]Dr. Garima Pulliam MCHC (RBC) [Mass/Vol] 33.8 g/dL Normal 29.9-35.2 [facility] Comment on above: Performed By: #### C BC ####[facility] Uhpbjtvhtg2542 [place] [id number]. Garima Pulliam MCV (RBC) [Entitic vol] 89.2 fL Normal 80.0-94.0 [facility] Comment on above: Performed By: #### C BC ####[facility] Banxappydc[address] [place], [place] [address]Dr. Chapisrenu Pulliam MONO # 0.7 103/ul Normal 0.3-0.8 [facility] Comment on above: Performed By: #### C BC ####[facility] Plripfpakk2722 [place] [id number]. Garima Pulliam Monocytes/100 WBC (Bld) 8.3 % Normal 1.7-12.0 [facility] Comment on above: Performed By: #### C BC ####[facility] Fhaaffxjye2593 [place] [id number]. Garima Pulliam NEUT # 5.1 103/ul Normal 1.4-6.5 [facility] Comment on above: Performed By: #### C BC ####[facility] Sfhmewsshb1524 [place] [id number]. Garima Pulliam Neutrophils/100 WBC (Bld) 59.0 % Normal 43.0-75.0 [facility] Comment on above: Performed By: #### C BC ####[facility] Yqsmnisnrg5761 [place] [address]Dr. Garima Pulliam Platelet mean volume (Bld) [Entitic vol] 8.7 fL Critically low 9.5-13.5 [facility] Comment on above: Performed By: #### C BC ####[facility] Fjgzocvyxo7001 [place] [address]Dr. Garima Pulliam PLT 182 103/ul Normal 150-450 [facility] Comment on above: Performed By: #### C BC ####[facility] Gcavtvbdkg4453 [place] [id number]. Garima Pulliam RBC 4.74 106/ul Normal 4.70-6.10 [facility] Comment on above: Performed By: #### C BC ####[facility] Ruq[address]rvhfs[address] [place], [place] [address]Dr. Garima Pulliam WBC 8.7 103/ul Normal 4.0-11.0 [facility] Comment on above: Performed By: #### C BC ####[facility] Wzlbapwouo[address] [place], [place] [address]Dr. Garima Pulliam Covid-19 PCR (CVDTB)on 12-25 SARS-CoV-2 (COVID-19) RNA MARIE+probe Ql (Unsp spec) Not detected Normal NOT DETECTED [facility] Comment on above: Result Comment: When [...] for this test is supported by the [employer] of [employer] and Human Service's declaration [...] used). Performed By: #### C VDTBH ####[facility] Xmopwojzal9926 [place] [address]Dr. Garima Pulliam PROF 14(COMP METB)on 023 Albumin [Mass/Vol] 3.6 g/dL Normal 3.4-5.0 [facility] Comment on above: Performed By: #### C MP, BNP, HSTROPN ####[facility] Rjyrddjuwo3453 [place] [address]Dr. Garima Pulliam Albumin/Globulin [Mass ratio] 1.5 {ratio} Normal [facility] Comment on above: Performed By: #### C MP, BNP, HSTROPN ####[facility] Wulgpiiqva9557 [place] [address]Dr. Garima Pulliam ALP [Catalytic activity/Vol] 79 U/L Normal 46-116 [facility] Comment on above: Performed By: #### C MP, BNP, HSTROPN ####[facility] Vseiuihrgx2575 [place] [address]Dr. Garima Pulliam ALT [Catalytic activity/Vol] 27 U/L Normal 16-63 [facility] Comment on above: Performed By: #### C MP, BNP, HSTROPN ####[facility] Zgyyqovmnj0439 [place] [address]Dr. Garima Pulliam Anion gap [Moles/Vol] 11.7 mmol/L Normal Th [facility] Comment on above: Performed By: #### C MP, BNP, HSTROPN ####[facility] Ynnleubass0428 [place] [address]Dr. Garima Pulliam AST [Catalytic activity/Vol] 21 U/L Normal 15-37 [facility] Comment on above: Performed By: #### C MP, BNP, HSTROPN ####[facility] Ulvekxgjfc8508 [place] [address]Dr. Garima Pulliam Bilirubin [Mass/Vol] 0.3 mg/dL Normal 0.2-1.0 [facility] Comment on above: Performed By: #### C MP, BNP, HSTROPN ####[facility] Rxatxvlfxs0983 [place] [address]Dr. Garima Pulliam Calcium [Mass/Vol] 8.9 mg/dL Normal 8.5-10.1 [facility] Comment on above: Performed By: #### C MP, BNP, HSTROPN ####[facility] Wtahfygokg5417 [place] [address]Dr. Garima Pulliam Chloride [Moles/Vol] 107 mmol/L Normal 98-107 [facility] Comment on above: Performed By: #### C MP, BNP, HSTROPN ####[facility] Cidelwisrr4371 [place] [address]Dr. Garima Pulliam CO2 [Moles/Vol] 26.0 mmol/L Normal 21.0-32.0 [facility] Comment on above: Performed By: #### C MP, BNP, HSTROPN ####[facility] Yshscpuaew9010 [place] [address]Dr. Garima Pulliam Creatinine [Mass/Vol] 0.65 mg/dL Critically low 0.70-1.30 [facility] Comment on above: Performed By: #### C MP, BNP, HSTROPN ####[facility] Frqmrynpxh2945 [place] [address]Dr. Yilan Pulliam EGFR-AF TONGAN >60 Normal >=60 [facility] Comment on above: Performed By: #### C MP, BNP, HSTROPN ####[facility] Fgtsbegshf3102 [place] [address]Dr. Garima Pulliam EGFR-NON AF TONGAN >60 Normal >=60 [facility] Comment on above: Performed By: #### C MP, BNP, HSTROPN ####[facility] Brongqzkob0853 [place] [address]Dr. Garima Pulliam Globulin (S) [Mass/Vol] 2.4 g/dL Normal [facility] Comment on above: Performed By: #### C MP, BNP, HSTROPN ####[facility] Tejvcgtzsj[address] [place], [place] [address]Dr. Garima Pulliam Glucose [Mass/Vol] 85 mg/dL Normal 74-106 [facility] Comment on above: Performed By: #### C MP, BNP, HSTROPN ####[facility] Qtnziggsra3100 [place] [address]Dr. Garima Pulliam Potassium [Moles/Vol] 3.7 mmol/L Normal 3.5-5.1 [facility] Comment on above: Performed By: #### C MP, BNP, HSTROPN ####[facility] Wqqwgklntw1851 [place] [address]Dr. Garima Pulliam Protein [Mass/Vol] 6.0 g/dL Critically low 6.4-8.2 [facility] Comment on above: Performed By: #### C MP, BNP, HSTROPN ####[facility] Viygbxmuez1384 [place] [address]Dr. Garima Pulliam Sodium [Moles/Vol] 141 mmol/L Normal 136-145 [facility] Comment on above: Performed By: #### C MP, BNP, HSTROPN ####[facility] Ceopvfzvnh3357 [place] [address]Dr. Garima Pulliam Urea nitrogen [Mass/Vol] 5.0 mg/dL Critically low 7.0-18.0 [facility] Comment on above: Performed By: #### C MP, BNP, HSTROPN ####[facility] Orrtgochov4195 [place] [place] [address]Dr. Garima Pulliam Urea nitrogen/Creatinine [Mass ratio] 7.7 mg/mg Normal [facility] Comment on above: Performed By: #### C MP, BNP, HSTROPN ####[facility] Ynmyfhstox[address] [place] [address]Dr. Garima Pulliam PROTIMEon 01-12-2023 INR Coag (PPP) [Relative time] 1.16 {INR} Normal [facility] Comment on above: Performed By: #### P TT, PT ####[facility] Dzrruokyqk9499 [place] [address]Dr. Garima Pulliam INR GUIDELINES SEE BELOW Normal [facility] Comment on above: Result Comment: [place] RED INR: 2.0 - 3.0 CONDITIONS NOT LISTED BELOW 2.5 - 3.5 FOR PROSTHETIC HEART VALVE REPLACEMENT 2.5 - 3.5 RECURRENT THROMBOSIS Performed By: #### P TT, PT ####[facility] Xutiebizvo[address] [place], [place] [address]Dr. Garima Pulliam PT Coag (PPP) [Time] 12.2 s Critically high 9.0-11.6 [facility] Comment on above: Performed By: #### P TT, PT ####[facility] Ykodrzsfle5534 [place] [address]Dr. Garima Pulliam PTTon 01-12-2023 aPTT Coag (Bld) [Time] 29.1 s Normal 22.3-36.2 [facility] Comment on above: Performed By: #### P TT, PT ####[facility] Qfdkjyfbxu[address] [place], [place] [address]Dr. Garima Pulliam TROPONIN, HIGH SENSITIVITYon 01-12-2023 HSTROP 10.3 pg/mL Normal 4.0-76.1 [facility] Comment on above: Result Comment: CUT- OFF POINTS HAVE BEEN ESTABLISHED BASED ON THE FOURTH UNIVERSAL DEFINITIONS OF MYOCARDIALINFARCTION. THE UPPER REFERENCE LIMIT (URL) OF TROPONIN, DEFINED THE 99TH PERCENTILE OFcTnI DISTRIBUTION IN A REFERENCE POPULATION, HAS BEEN CONFIRMED THE DECISION THRESHOLDFOR [place] DIAGNOSIS. Performed By: #### H STROPN ####[facility] Bukgjsdgys[address] [place] [address]Dr. Garima Pulliam HSTROP 9.2 pg/mL Normal 4.0-76.1 [facility] Comment on above: Result Comment: CUT- OFF POINTS HAVE BEEN ESTABLISHED BASED ON THE FOURTH UNIVERSAL DEFINITIONS OF MYOCARDIALINFARCTION. THE UPPER REFERENCE LIMIT (URL) OF TROPONIN, DEFINED THE 99TH PERCENTILE OFcTnI DISTRIBUTION IN A REFERENCE POPULATION, HAS BEEN CONFIRMED THE DECISION THRESHOLDFOR [place] DIAGNOSIS. Performed By: #### C MP, BNP, HSTROPN ####[facility] Pbgjnigkaq8428 [place] [address]Dr. Garima Pulliam XR CHEST 1 Von 01-12-2023 XR CHEST 1 V Normal [facility] XR CHEST 1 Von 01-01-2023 XR CHEST 1 V Normal [facility] CARDIAC NASH 3-6on 3 CK [Catalytic activity/Vol] 196 U/L Normal 39-308 [facility] Comment on above: Performed By: #### C MREP ####[facility] Ljsvjfjmmc9725 [place] [address]Dr. Garima Pulliam CK.MB [Mass/Vol] 7.41 ng/mL Critically high <=3.60 [facility] Comment on above: Performed By: #### C MREP ####[facility] Aynootzxac5109 [place] [address]Dr. Garima Pulliam HSTROP 10.3 pg/mL Normal 4.0-76.1 [facility] Comment on above: Result Comment: CUT- OFF POINTS HAVE BEEN ESTABLISHED BASED ON THE FOURTH UNIVERSAL DEFINITIONS OF MYOCARDIALINFARCTION. THE UPPER REFERENCE LIMIT (URL) OF TROPONIN, DEFINED THE 99TH PERCENTILE OFcTnI DISTRIBUTION IN A REFERENCE POPULATION, HAS BEEN CONFIRMED THE DECISION THRESHOLDFOR [place] DIAGNOSIS. Performed By: #### C MREP ####[facility] Brzpwifkuq9687 [place] [id number]. Garima Pulliam XR CHEST 1 Von 12-26-2022 XR CHEST 1 V Normal [facility] BNPon 12-25-2022 Natriuretic peptide B (Bld) [Mass/Vol] 98.0 pg/mL Normal <=900.0 [facility] Comment on above: Performed By: #### B MARVIN FRENCH CMADM ####[facility] Ccnyasoxwh4887 [place] [address]Dr. Garima Pulliam CARDIAC NASH ADMITon 023 CK [Catalytic activity/Vol] 208 U/L Normal 39-308 [facility] Comment on above: Performed By: #### B MARVIN FRENCH CMADM ####[facility] Uwhdflmmpt5190 [place] [address]Dr. Garima Pulliam CK.MB [Mass/Vol] 7.63 ng/mL Critically high <=3.60 [facility] Comment on above: Performed By: #### B MARVIN FRENCH CMADM ####[facility] Lhyxojskka[address] [place], [place] [address]Dr. Garima Pulliam HSTROP 8.8 pg/mL Normal 4.0-76.1 [facility] Comment on above: Result Comment: CUT- OFF POINTS HAVE BEEN ESTABLISHED BASED ON THE FOURTH UNIVERSAL DEFINITIONS OF MYOCARDIALINFARCTION. THE UPPER REFERENCE LIMIT (URL) OF TROPONIN, DEFINED THE 99TH PERCENTILE OFcTnI DISTRIBUTION IN A REFERENCE POPULATION, HAS BEEN CONFIRMED THE DECISION THRESHOLDFOR [place] DIAGNOSIS. Performed By: #### B MARVIN FRENCH CMADM ####[facility] Emusjjjivw[address] [place], [place] [address]Dr. Garima Pulliam DORIS 83 ng/mL Normal 16-96 [facility] Comment on above: Performed By: #### B MARVIN FRENCH CMADM ####[facility] Mxfklyppha862[address] [place], [place] [address]Dr. Garima Pulliam CBC AUTO DIFFon 12-25-2022 BASO # 0.0 103/ul Normal 0.0-0.1 [facility] Comment on above: Performed By: #### C BC ####[facility] Siuccxauea[address] [place], [place] [address]Dr. Garima Pulliam Basophils/100 WBC (Bld) 0.0 % Critically low 0.2-2.0 [facility] Comment on above: Performed By: #### C BC ####[facility] Opfzpltbyj3848 [place] [address]Dr. Garima Pulliam EO # 0.0 103/ul Normal 0.0-0.7 [facility] Comment on above: Performed By: #### C BC ####[facility] Rbduyefmyy[address] [place], [place] [address]Dr. Garima Pulliam Eosinophils/100 WBC (Bld) 0.7 % Critically low 0.9-7.0 [facility] Comment on above: Performed By: #### C BC ####[facility] Ftdtluqpmd087[address] [place], [place] [address]Dr. Garima Pulliam Erythrocyte distribution width (RBC) [Ratio] 13.4 % Normal 11.0-15.0 [facility] Comment on above: Performed By: #### C BC ####[facility] Ykeakjkmrm[address] [place], [place] [address]Dr. Garima Pulliam Hematocrit (Bld) [Volume fraction] 42.9 % Normal 42.0-54.0 [facility] Comment on above: Performed By: #### C BC ####[facility] Ejzjzhwklr[address] [place], [place] [address]Dr. Garima Pulliam Hemoglobin (Bld) [Mass/Vol] 14.4 g/dL Normal 14.0-18.0 [facility] Comment on above: Performed By: #### C BC ####[facility] Lumtypyokp[address] [place], [place] [address]Dr. Garima Pulliam IG # 0.00 10e3/ul Normal 0.00-0.03 [facility] Comment on above: Performed By: #### C BC ####[facility] Wjozhtfkhb[address] [place], [place] [address]Dr. Garima Pulliam IG % 0.0 % Normal 0.0-0.5 [facility] Comment on above: Performed By: #### C BC ####[facility] Togiotndsv[address] [place], [place] [address]Dr. Garima Pulliam LYMPH # 2.4 103/ul Normal 1.2-3.8 [facility] Comment on above: Performed By: #### C BC ####[facility] Kevejavqsy5712 [place] [id number]. Chapisrenu Pulliam Lymphocytes/100 WBC (Bld) 29.2 % Normal 20.5-60.0 [facility] Comment on above: Performed By: #### C BC ####[facility] Bqnnjyqaka5606 [place] [id number]. Garima Pulliam MANUAL DIFF REQ NO Normal [facility] Comment on above: Performed By: #### C BC ####[facility] Tzxzmcfzks3430 [place] [id number]. Garima Pulliam MCH (RBC) [Entitic mass] 30.7 pg Normal 25.9-34.0 [facility] Comment on above: Performed By: #### C BC ####[facility] Ieoppsmrby[address] [place], [place] [address]Dr. Garima Pulliam MCHC (RBC) [Mass/Vol] 33.6 g/dL Normal 29.9-35.2 [facility] Comment on above: Performed By: #### C BC ####[facility] Hohalehxaq[address] [place], [place] [address]Dr. Garima Pulliam MCV (RBC) [Entitic vol] 91.5 fL Normal 80.0-94.0 [facility] Comment on above: Performed By: #### C BC ####[facility] Pgcrplzaco[address] [place], [place] [address]Dr. Garima Pulliam MONO # 0.0 103/ul Critically low 0.3-0.8 [facility] Comment on above: Performed By: #### C BC ####[facility] Gshvljqwbs1322 [place] [address]Dr. Garima Pulliam Monocytes/100 WBC (Bld) 8.0 % Normal 1.7-12.0 [facility] Comment on above: Performed By: #### C BC ####[facility] Tnzdrbrpam[address] [place], [place] [address]Dr. Garima Pulliam NEUT # 5.1 103/ul Normal 1.4-6.5 [facility] Comment on above: Performed By: #### C BC ####[facility] Yspswnioxh3012 [place], [place] [address]Tz. Garima Pulliam Neutrophils/100 WBC (Bld) 62.8 % Normal 43.0-75.0 [facility] Comment on above: Performed By: #### C BC ####[facility] Xdaebjnrwu8866 [place], [place] [address]Ke. Garima Pulliam Platelet mean volume (Bld) [Entitic vol] 8.6 fL Critically low 9.5-13.5 [facility] Comment on above: Performed By: #### C BC ####[facility] Wguaxdfddj2553 [place] [id number]. Garima Pulliam PLT 200 103/ul Normal 150-450 [facility] Comment on above: Performed By: #### C BC ####[facility] Iqrjeigfck9497 [place] [id number]. Garima Pulliam RBC 4.69 106/ul Critically low 4.70-6.10 [facility] Comment on above: Performed By: #### C BC ####[facility] Ugfveuxpty5315 [place], [place] [address]Yx. Garima Pulliam WBC 8.2 103/ul Normal 4.0-11.0 [facility] Comment on above: Performed By: #### C BC ####[facility] Zwskxngpfx9644 [place], [place] [address]Uu. Garima Pulliam [facility])on SARS-CoV-2 (COVID-19) RNA MARIE+probe Ql (Unsp spec) Not detected Normal NOT DETECTED [facility] Comment on above: Result Comment: When [...] for this test is supported by the [employer] of Health and Human Service's declaration [...] used). Performed By: #### C VDTBH ####[facility] Divpqbnghm110[address] [place], [place] [address]Dr. Garima Pulliam INFLUENZA A AND B AGon 12-25 INFLUANEGH SEE BELOW Normal [facility] Comment on above: Result Comment: Nega tive for Flu A protein angiten. Infection due to Flu A cannot be ruled out. Flu A angiten in the sample may be below the detection limit of the test. Performed By: #### I NFLUAB ####[facility] Ujdmimlyyv0[address] [place], [place] [address]Dr. Garima Pulliam INFLUBNEGH SEE BELOW Normal [facility] Comment on above: Result Comment: Nega tive for Flu B protein antigen. Infection due to Flu B cannot be ruled out. Flu B antigen in the sample may be below the detection limit of the test. Performed By: #### I NFLUAB ####[facility] Egougzpsjz[address] [place], [place] [address]Dr. Garima Pulliam INFLUENZA A AG Negative Normal NEGATIVE SEE COMMENT [facility] Comment on above: Performed By: #### I NFLUAB ####[facility] Txvbqejudq[address] [place], [place] [address]Dr. renu [facility] INFLUENZA B AG Negative Normal NEGATIVE SEE COMMENT [facility] Comment on above: Performed By: #### I NFLUAB ####[facility] Ixxcmihumu[address] [place], [place] [address]Dr. Garima Pulliam PROF CHEM 8 (BAS METB)on Anion gap [Moles/Vol] 11.1 mmol/L Normal Th [facility] Comment on above: Performed By: #### B PROCESS INSPECTOR, BMP, CMADM ####[facility] Bvkishnrwx8[address] [place], [place] [address]Dr. Garima Pulliam Calcium [Mass/Vol] 8.5 mg/dL Normal 8.5-10.1 [facility] Comment on above: Performed By: #### B PROCESS INSPECTOR, MARVIN, CMADM ####[facility] Ywdqayuqfe0634 [place] [id number]. Garima Pulliam Chloride [Moles/Vol] 106 mmol/L Normal 98-107 [facility] Comment on above: Performed By: #### B PROCESS INSPECTOR, BMP, CMADM ####[facility] Vjayxgkafk2224 [place] [address]Dr. Garima Pulliam CO2 [Moles/Vol] 27.4 mmol/L Normal 21.0-32.0 [facility] Comment on above: Performed By: #### B PROCESS INSPECTOR, MARVIN, CMADM ####[facility] Pxltciikgu5588 [place] [address]Dr. Garima Pulliam Creatinine [Mass/Vol] 0.65 mg/dL Critically low 0.70-1.30 [facility] Comment on above: Performed By: #### B PROCESS INSPECTOR, MARVIN, CMADM ####[facility] Ubfugbhtne2865 [place] [address]Dr. Garima Pulliam EGFR-AF TONGAN >60 Normal >=60 [facility] Comment on above: Performed By: #### B PROCESS INSPECTOR, BMP, CMADM ####[facility] Ejrsxahwop0371 [place] [address]Dr. Garima Pulliam EGFR-NON AF TONGAN >60 Normal >=60 [facility] Comment on above: Performed By: #### B PROCESS INSPECTOR, BMP, CMADM ####[facility] Xjtrhbpmay3771 [place] [address]Dr. Garima Pulliam Glucose [Mass/Vol] 140 mg/dL Critically high 74-106 [facility] Comment on above: Performed By: #### B PROCESS INSPECTOR, BMP, CMADM ####[facility] Xcxbhfiawu7775 [place] [address]Dr. Garima Pulliam Potassium [Moles/Vol] 3.5 mmol/L Normal 3.5-5.1 [facility] Comment on above: Performed By: #### B PROCESS INSPECTOR, BMP, CMADM ####[facility] Aoknxqydvo5898 [place] [address]Dr. Garima Pulliam Sodium [Moles/Vol] 141 mmol/L Normal 136-145 [facility] Comment on above: Performed By: #### B PROCESS INSPECTOR, BMP, CMADM ####[facility] Dzplaggrgs6085 [place] [address]Dr. Garima Pulliam Urea nitrogen [Mass/Vol] 8.0 mg/dL Normal 7.0-18.0 [facility] Comment on above: Performed By: #### B PROCESS INSPECTOR, BMP, CMADM ####[facility] Enpybnhehe7686 [place] [address]Dr. Garima Pulliam Urea nitrogen/Creatinine [Mass ratio] 12.3 mg/mg Normal [facility] Comment on above: Performed By: #### B PROCESS INSPECTOR, BMP, CMADM ####[facility] Iczxfjwqor[address] [place], [place] [address]Dr. Garima Pulliam CARDIAC NASH ADMITon 023 CK [Catalytic activity/Vol] 165 U/L Normal 39-308 [facility] Comment on above: Performed By: #### B DAVID, CMADM ####[facility] Nsxkekgrph[address] [place], [place] [address]Dr. Garima Pulliam CK.MB [Mass/Vol] 6.48 ng/mL Critically high <=3.60 [facility] Comment on above: Performed By: #### B MP, CMADM ####[facility] Zioopzdbpj[address] [place], [place] [address]Dr. Garima Pulliam HSTROP 11.7 pg/mL Normal 4.0-76.1 [facility] Comment on above: Result Comment: CUT- OFF POINTS HAVE BEEN ESTABLISHED BASED ON THE FOURTH UNIVERSAL DEFINITIONS OF MYOCARDIALINFARCTION. THE UPPER REFERENCE LIMIT (URL) OF TROPONIN, DEFINED THE 99TH PERCENTILE OFcTnI DISTRIBUTION IN A REFERENCE POPULATION, HAS BEEN CONFIRMED THE DECISION THRESHOLDFOR [place] DIAGNOSIS. Performed By: #### B MP, CMADM ####[facility] Skjjenvuit7[address] [place], [place] [address]Dr. Garima Pulliam DORIS 83 ng/mL Normal 16-96 [facility] Comment on above: Performed By: #### B MP, CMADM ####[facility] Evkuunfunr6671 [place] [address]Dr. Garima Pulliam CBC AUTO DIFFon 12-10-2022 BASO # 0.0 103/ul Normal 0.0-0.1 [facility] Comment on above: Performed By: #### C BC ####[facility] Rmlcrviuet[address] [place], [place] [address]Dr. Garima Heraclio Basophils/100 WBC (Bld) 0.3 % Normal 0.2-2.0 [facility] Comment on above: Performed By: #### C BC ####[facility] Qdvdexsost835[address] [place], [place] [address]Dr. Garima Pulliam EO # 0.1 103/ul Normal 0.0-0.7 [facility] Comment on above: Performed By: #### C BC ####[facility] Udggqewrba[address] [place], [place] [address]Dr. Garima Pulliam Eosinophils/100 WBC (Bld) 0.4 % Critically low 0.9-7.0 [facility] Comment on above: Performed By: #### C BC ####[facility] Figjtqafcj5164[address] [place], [place] [address]Dr. Garima Pulliam Erythrocyte distribution width (RBC) [Ratio] 13.2 % Normal 11.0-15.0 [facility] Comment on above: Performed By: #### C BC ####[facility] Xcwnmpkgfd814[address] [place], [place] [address]Dr. Garima Pulliam Hematocrit (Bld) [Volume fraction] 42.4 % Normal 42.0-54.0 [facility] Comment on above: Performed By: #### C BC ####[facility] Qcvwtkluix7694[address] [place], [place] [address]Dr. Garima Pulliam Hemoglobin (Bld) [Mass/Vol] 14.4 g/dL Normal 14.0-18.0 [facility] Comment on above: Performed By: #### C BC ####[facility] Riellykbfn0357 [place] [id number]. Garima Heraclio IG # 0.05 10e3/ul Critically high 0.00-0.03 [facility] Comment on above: Performed By: #### C BC ####[facility] Ugxcvvdqqt6219 [place] [address]Dr. Garima Heraclio IG % 0.4 % Normal 0.0-0.5 [facility] Comment on above: Performed By: #### C BC ####[facility] Drevujfwoq654[address] [place], [place] [address]Dr. Garima Pulliam LYMPH # 0.8 103/ul Critically low 1.2-3.8 [facility] Comment on above: Performed By: #### C BC ####[facility] Ayojlqwoey[address] [place], [place] [address]Dr. Chapisrenu Pulliam Lymphocytes/100 WBC (Bld) 6.5 % Critically low 20.5-60.0 [facility] Comment on above: Performed By: #### C BC ####[facility] Ilfbsbufyy475[address] [place], [place] [address]Dr. Chapisrenu Pulliam MANUAL DIFF REQ NO Normal [facility] Comment on above: Performed By: #### C BC ####[facility] Drkneqpgsr6[address] [place], [place] [address]DrAdalberto Garima Pulliam MCH (RBC) [Entitic mass] 30.5 pg Normal 25.9-34.0 [facility] Comment on above: Performed By: #### C BC ####[facility] Ucpwdabdzl[address] [place], [place] [address]DrAdalberto Garima Heraclio MCHC (RBC) [Mass/Vol] 34.0 g/dL Normal 29.9-35.2 [facility] Comment on above: Performed By: #### C BC ####[facility] Tqwceduqtv[address] [place], [place] [address]DrAdalberto Garima Heraclio MCV (RBC) [Entitic vol] 89.8 fL Normal 80.0-94.0 [facility] Comment on above: Performed By: #### C BC ####[facility] Qivbbgqyxv[address] [place], [place] [address]Dr. Garima Pulliam MONO # 0.2 103/ul Critically low 0.3-0.8 [facility] Comment on above: Performed By: #### C BC ####[facility] Deumdttgor8660 [place] [id number]. Garima Pulliam Monocytes/100 WBC (Bld) 2.0 % Normal 1.7-12.0 [facility] Comment on above: Performed By: #### C BC ####[facility] Yldyudsqhq3919 [place] [address]Dr. Chapisrenu Heraclio NEUT # 10.5 103/ul Critically high 1.4-6.5 [facility] Comment on above: Performed By: #### C BC ####[facility] Yqfcvavagy3992 [place] [address]Dr. Garima Pulliam Neutrophils/100 WBC (Bld) 90.4 % Critically high 43.0-75.0 [facility] Comment on above: Performed By: #### C BC ####[facility] Pcdivukvvx3255 [place] [address]Dr. Garima Pulliam Platelet mean volume (Bld) [Entitic vol] 9.4 fL Critically low 9.5-13.5 [facility] Comment on above: Performed By: #### C BC ####[facility] Jtykmsjiui4108 [place] [address]Dr. Garima Pulliam PLT 198 103/ul Normal 150-450 [facility] Comment on above: Performed By: #### C BC ####[facility] Pmpxwowpmb0481 [place] [address]Dr. Garima Pulliam RBC 4.72 106/ul Normal 4.70-6.10 [facility] Comment on above: Performed By: #### C BC ####[facility] Bpceqgixad9512 [place] [id number]. Garima Pulliam WBC 11.6 103/ul Critically high 4.0-11.0 [facility] Comment on above: Performed By: #### C BC ####[facility] Cprofbhqhk8892 [place] [address]DrAdalberto Pulliam PROF CHEM 8 (BAS METB)on Anion gap [Moles/Vol] 11.3 mmol/L Normal Th [facility] Comment on above: Performed By: #### B NANCY HERNANDEZ ####[facility] Vzwjhvajar0724 [place] [address]Dr. Garima Pulliam Calcium [Mass/Vol] 8.9 mg/dL Normal 8.5-10.1 [facility] Comment on above: Performed By: #### B NANCY HERNANDEZ ####[facility] Gpwvrgejjn8191 [place] [address]Dr. Garima Pulliam Chloride [Moles/Vol] 103 mmol/L Normal 98-107 [facility] Comment on above: Performed By: #### B NANCY HERNANDEZ ####[facility] Zswjivaxpz[address] [place], [place] [address]Dr. Garima Pulliam CO2 [Moles/Vol] 28.2 mmol/L Normal 21.0-32.0 [facility] Comment on above: Performed By: #### NANCY Larkin MP ####[facility] [facility] [address]loq[address]tseu[address] [place] [address]Dr. Chapisrenu Pulliam Creatinine [Mass/Vol] 0.60 mg/dL Critically low 0.70-1.30 [facility] Comment on above: Performed By: #### NANCY Larkin MP ####[facility] Jgtcxinrzh0134 [place] [address]Dr. Garima Pulliam EGFR-AF TONGAN >60 Normal >=60 [facility] Comment on above: Performed By: #### NANCY Larkin MP ####[facility] Dnykrkclqn9576 [place] [address]Dr. Garima Pulliam EGFR-NON AF TONGAN >60 Normal >=60 [facility] Comment on above: Performed By: #### NANCY Larkin MP ####[facility] Mohhlbccvs[address] [place], [place] [address]Dr. Garima Pulliam Glucose [Mass/Vol] 166 mg/dL Critically high 74-106 [facility] Comment on above: Performed By: #### B MP, CMADM ####[facility] Jgtfdtcalz[address] [place] [address]Dr. Garima Pulliam Potassium [Moles/Vol] 3.5 mmol/L Normal 3.5-5.1 [facility] Comment on above: Performed By: #### B MP, CMADM ####[facility] Zsjzxlhitw6432 [place] [address]Dr. Garima Pulliam Sodium [Moles/Vol] 139 mmol/L Normal 136-145 [facility] Comment on above: Performed By: #### B DAVID, CMADM ####[facility] Akhmtmlajk3[address] [place] [address]Dr. Garima Heraclio Urea nitrogen [Mass/Vol] 9.0 mg/dL Normal 7.0-18.0 [facility] Comment on above: Performed By: #### B DAVID, NANCY ####[facility] Jfscvvrdsh[address] [place], [place] [address]Dr. Garima Heraclio Urea nitrogen/Creatinine [Mass ratio] 15.0 mg/mg Normal [facility] Comment on above: Performed By: #### B DAVID, CMAANA ROSA ####[facility] Umjylxmwhx[address] [place], [place] [address]Dr. Garima Pulliam XR CHEST 1 Von 12-10-2022 XR CHEST 1 V Normal [facility] BNPon 11-27-2022 Natriuretic peptide B (Bld) [Mass/Vol] 95.0 pg/mL Normal <=900.0 [facility] Comment on above: Performed By: #### C MP, HSTROPN, BNP ####[facility] Xcktifupfi[address] [place], [place] [address]Dr. Garima Heraclio CBC AUTO DIFFon 11-27-2022 BASO # 0.0 103/ul Normal 0.0-0.1 [facility] Comment on above: Performed By: #### C BC ####[facility] Voknrmtqow[address] [place], [place] [address]Dr. Garima Heraclio Basophils/100 WBC (Bld) 0.2 % Normal 0.2-2.0 [facility] Comment on above: Performed By: #### C BC ####[facility] Ftfxqudwjl0936 [place] [id number]. Garima Pulliam EO # 0.2 103/ul Normal 0.0-0.7 [facility] Comment on above: Performed By: #### C BC ####[facility] Oqkcxebsim6929 [place] [id number]. Garima Pulliam Eosinophils/100 WBC (Bld) 2.0 % Normal 0.9-7.0 [facility] Comment on above: Performed By: #### C BC ####[facility] Qqvvymskqg[address] [place], [place] [address]Dr. Garima Pulliam Erythrocyte distribution width (RBC) [Ratio] 13.2 % Normal 11.0-15.0 [facility] Comment on above: Performed By: #### C BC ####[facility] Ktyguejvgk8823[address] [place], [place] [address]Dr. Garima Pulliam Hematocrit (Bld) [Volume fraction] 42.4 % Normal 42.0-54.0 [facility] Comment on above: Performed By: #### C BC ####[facility] Kfekwcmgsa[address] [place], [place] [address]Dr. Garima Pulliam Hemoglobin (Bld) [Mass/Vol] 14.4 g/dL Normal 14.0-18.0 [facility] Comment on above: Performed By: #### C BC ####[facility] Udhfcvzova17[address] [place], [place] [address]Dr. Garima Pulliam IG # 0.04 10e3/ul Critically high 0.00-0.03 [facility] Comment on above: Performed By: #### C BC ####[facility] Lpcdownsou[address] [place], [place] [address]Dr. Garima Pulliam IG % 0.4 % Normal 0.0-0.5 [facility] Comment on above: Performed By: #### C BC ####[facility] Inaaptgkfx[address] [place], [place] [address]Dr. Garima Pulliam LYMPH # 2.2 103/ul Normal 1.2-3.8 [facility] Comment on above: Performed By: #### C BC ####[facility] Rplmffiink4857 [place] [id number]. Garima Pulliam Lymphocytes/100 WBC (Bld) 21.5 % Normal 20.5-60.0 [facility] Comment on above: Performed By: #### C BC ####[facility] Xlvvaxfgbf9552 [place] [id number]. Garima Heraclio MANUAL DIFF REQ NO Normal [facility] Comment on above: Performed By: #### C BC ####[facility] Bkedixfins8147 [place] [id number]. Garima Heraclio MCH (RBC) [Entitic mass] 30.4 pg Normal 25.9-34.0 [facility] Comment on above: Performed By: #### C BC ####[facility] Gsxucrbfwb3942 [place] [address]Dr. Garima Heraclio MCHC (RBC) [Mass/Vol] 34.0 g/dL Normal 29.9-35.2 [facility] Comment on above: Performed By: #### C BC ####[facility] Tlmwhbixhk1202 [place] [id number]. Garima Pulliam MCV (RBC) [Entitic vol] 89.6 fL Normal 80.0-94.0 [facility] Comment on above: Performed By: #### C BC ####[facility] Wbgktltmgk4811 [place] [id number]. Garima Pulliam MONO # 0.8 103/ul Normal 0.3-0.8 [facility] Comment on above: Performed By: #### C BC ####[facility] Ipmukryokz5701 [place] [id number]. Chapisrenu Pulliam Monocytes/100 WBC (Bld) 7.7 % Normal 1.7-12.0 [facility] Comment on above: Performed By: #### C BC ####[facility] Coletprcpj6[address] [place], [place] [address]Dr. Garima Pulliam NEUT # 7.0 103/ul Critically high 1.4-6.5 [facility] Comment on above: Performed By: #### C BC ####[facility] Loodsfttnl1211 [place] [id number]. Garima Pulliam Neutrophils/100 WBC (Bld) 68.2 % Normal 43.0-75.0 [facility] Comment on above: Performed By: #### C BC ####[facility] Cmxatqpiyx6068 [place] [id number]. Chapisrenu Pulliam Platelet mean volume (Bld) [Entitic vol] 8.9 fL Critically low 9.5-13.5 [facility] Comment on above: Performed By: #### C BC ####[facility] Jvnhgspbzc9997 [place] [address]Dr. Garima Pulliam PLT 222 103/ul Normal 150-450 [facility] Comment on above: Performed By: #### C BC ####[facility] Bugxywteyo3790 [place] [address]Dr. Garima Pulliam RBC 4.73 106/ul Normal 4.70-6.10 [facility] Comment on above: Performed By: #### C BC ####[facility] Ialjpfxgvy8169 [place] [address]Dr. Garima Pulliam WBC 10.3 103/ul Normal 4.0-11.0 [facility] Comment on above: Performed By: #### C BC ####[facility] Jdhctkvowe6735 [place] [address]Dr. Garima Pulliam PROF 14(COMP METB)on 023 Albumin [Mass/Vol] 3.7 g/dL Normal 3.4-5.0 [facility] Comment on above: Performed By: #### C MP, HSTROPN, BNP ####[facility] Ogptqtopog5600 [place] [address]Dr. Chapisrenu Pulliam Albumin/Globulin [Mass ratio] 1.5 {ratio} Normal [facility] Comment on above: Performed By: #### C MP, HSTROPN, BNP ####[facility] Wwzcyyhdog9829 [place] [address]Dr. Garima Pulliam ALP [Catalytic activity/Vol] 79 U/L Normal 46-116 [facility] Comment on above: Performed By: #### C MP, HSTROPN, BNP ####[facility] Fbqpxpkqzg6275 [place] [address]Dr. Garima Pulliam ALT [Catalytic activity/Vol] 32 U/L Normal 16-63 [facility] Comment on above: Performed By: #### C MP, HSTROPN, BNP ####[facility] Zzdbfdgwuq2569 [place] [address]Dr. Garima Pulliam Anion gap [Moles/Vol] 9.5 mmol/L Normal [facility] Comment on above: Performed By: #### C MP, HSTROPN, BNP ####[facility] Wjuiodgjrd[address] [place], [place] [address]Dr. Garima Pulliam AST [Catalytic activity/Vol] 25 U/L Normal 15-37 [facility] Comment on above: Performed By: #### C MP, HSTROPN, BNP ####[facility] Yhybpbhvok[address] [place], [place] [address]Dr. Chapislan Pulliam Bilirubin [Mass/Vol] 0.4 mg/dL Normal 0.2-1.0 [facility] Comment on above: Performed By: #### C MP, HSTROPN, BNP ####[facility] Wqhlxrbxmd68[address] [place], [place] [address]Dr. Garima Pulliam Calcium [Mass/Vol] 8.9 mg/dL Normal 8.5-10.1 [facility] Comment on above: Performed By: #### C MP, HSTROPN, BNP ####[facility] Blqevzlqik68[address] [place], [place] [address]Dr. Chapislan Pulliam Chloride [Moles/Vol] 103 mmol/L Normal 98-107 [facility] Comment on above: Performed By: #### C MP, HSTROPN, BNP ####[facility] Vfbjlmlvko9632[address] [place], [place] [address]Dr. Yilan Pulliam CO2 [Moles/Vol] 28.6 mmol/L Normal 21.0-32.0 [facility] Comment on above: Performed By: #### C MP, HSTROPN, BNP ####[facility] Xpinaufsof4288 [place] [address]Dr. Garima Pulliam Creatinine [Mass/Vol] 0.72 mg/dL Normal 0.70-1.30 [facility] Comment on above: Performed By: #### C MP, HSTROPN, BNP ####[facility] Ravrwtsvgj0209 [place] [address]Dr. Garima Pulliam EGFR-AF TONGAN >60 Normal >=60 [facility] Comment on above: Performed By: #### C MP, HSTROPN, BNP ####[facility] Lrcvrxakuv4814 [place] [address]Dr. Garima Pulliam EGFR-NON AF TONGAN >60 Normal >=60 [facility] Comment on above: Performed By: #### C MP, HSTROPN, BNP ####[facility] Lftphzwfwo9416 [place] [address]Dr. Garima Pulliam Globulin (S) [Mass/Vol] 2.5 g/dL Normal [facility] Comment on above: Performed By: #### C MP, HSTROPN, BNP ####[facility] Oembiammmv46[address] [place], [place] [address]Dr. Garima Pulliam Glucose [Mass/Vol] 114 mg/dL Critically high 74-106 [facility] Comment on above: Performed By: #### C MP, HSTROPN, BNP ####[facility] Vatbwpdiyj[address] [place], [place] [address]Dr. Garima Pulliam Potassium [Moles/Vol] 4.1 mmol/L Normal 3.5-5.1 [facility] Comment on above: Performed By: #### C MP, HSTROPN, BNP ####[facility] Twfhnlxxgx039[address] [place], [place] [address]Dr. Garima Pulliam Protein [Mass/Vol] 6.2 g/dL Critically low 6.4-8.2 [facility] Comment on above: Performed By: #### C MP, HSTROPN, BNP ####[facility] Rvtnpxjlyx85[address] [place], [place] [address]Dr. Yilan Pulliam Sodium [Moles/Vol] 137 mmol/L Normal 136-145 [facility] Comment on above: Performed By: #### C MP, HSTROPN, BNP ####[facility] Volxxdsxks8337 [place] [address]Dr. Garima Pulliam Urea nitrogen [Mass/Vol] 13.0 mg/dL Normal 7.0-18.0 [facility] Comment on above: Performed By: #### C MP, HSTROPN, BNP ####[facility] Esuftyobvz2964 [place] [address]Dr. Garima Pulliam Urea nitrogen/Creatinine [Mass ratio] 18.1 mg/mg Normal [facility] Comment on above: Performed By: #### C MP, HSTROPN, BNP ####[facility] Bfyglfghmw387[address] [place], [place] [address]Dr. Garima Pulliam TROPONIN, HIGH SENSITIVITYon 11-27-2022 HSTROP 11.8 pg/mL Normal 4.0-76.1 [facility] Comment on above: Result Comment: CUT- OFF POINTS HAVE BEEN ESTABLISHED BASED ON THE FOURTH UNIVERSAL DEFINITIONS OF MYOCARDIALINFARCTION. THE UPPER REFERENCE LIMIT (URL) OF TROPONIN, DEFINED THE 99TH PERCENTILE OFcTnI DISTRIBUTION IN A REFERENCE POPULATION, HAS BEEN CONFIRMED THE DECISION THRESHOLDFOR WA DIAGNOSIS. Performed By: #### C MP, HSTROPN, BNP ####[facility] Befqluwgeb9[address] [place], [place] [address]Dr. Garima Pulliam XR CHEST 1 Von 11-27-2022 XR CHEST 1 V Normal [facility] BNPon 11-20-2022 Natriuretic peptide B (Bld) [Mass/Vol] 73.0 pg/mL Normal <=900.0 [facility] Comment on above: Performed By: #### B MP, HSTROPN, BNP ####[facility] Tflfhzcbqi[address] [place], [place] [address]Dr. Garima Pulliam CBC AUTO DIFFon 11-20-2022 BASO # 0.0 103/ul Normal 0.0-0.1 [facility] Comment on above: Performed By: #### C BC ####[facility] Iorysokrbm0014 [place] [id number]. Garima Pulliam Basophils/100 WBC (Bld) 0.3 % Normal 0.2-2.0 [facility] Comment on above: Performed By: #### C BC ####[facility] Aahrgnkrxj1733 [place] [id number]. Garima Pulliam EO # 0.2 103/ul Normal 0.0-0.7 [facility] Comment on above: Performed By: #### C BC ####[facility] Oqftzstbpc8974 [place] [address]Dr. Garima Pulliam Eosinophils/100 WBC (Bld) 2.1 % Normal 0.9-7.0 [facility] Comment on above: Performed By: #### C BC ####[facility] Nuipzobjjz7[address] [place], [place] [address]Dr. Garima Pulliam Erythrocyte distribution width (RBC) [Ratio] 13.2 % Normal 11.0-15.0 [facility] Comment on above: Performed By: #### C BC ####[facility] Fhfxndxzfe[address] [place], [place] [address]Dr. Garima Pulliam Hematocrit (Bld) [Volume fraction] 43.4 % Normal 42.0-54.0 [facility] Comment on above: Performed By: #### C BC ####[facility] [address]xj[address] [place], [place] [address]Dr. Garima Pulliam Hemoglobin (Bld) [Mass/Vol] 14.6 g/dL Normal 14.0-18.0 [facility] Comment on above: Performed By: #### C BC ####[facility] Maiddkezfc7258 [place] [id number]. Garima Pulliam IG # 0.02 10e3/ul Normal 0.00-0.03 [facility] Comment on above: Performed By: #### C BC ####[facility] Xfteuzniua4091 [place] [address]Dr. Garima Pulliam IG % 0.2 % Normal 0.0-0.5 [facility] Comment on above: Performed By: #### C BC ####[facility] Gjtaqqdvys1734 [place] [id number]. Garima Heraclio LYMPH # 2.1 103/ul Normal 1.2-3.8 [facility] Comment on above: Performed By: #### C BC ####[facility] Brpsoedhlk6810 [place] [id number]. Garima Heraclio Lymphocytes/100 WBC (Bld) 19.2 % Critically low 20.5-60.0 [facility] Comment on above: Performed By: #### C BC ####[facility] Iphkwbeasc0740 [place] [id number]. Chapisrenu Pulliam MANUAL DIFF REQ NO Normal [facility] Comment on above: Performed By: #### C BC ####[facility] Afpfrwcfiq8004 [place] [id number]. Garima Heraclio MCH (RBC) [Entitic mass] 30.4 pg Normal 25.9-34.0 [facility] Comment on above: Performed By: #### C BC ####[facility] Iyegwwjvkl5131 [place] [address]Dr. Garima Pulliam MCHC (RBC) [Mass/Vol] 33.6 g/dL Normal 29.9-35.2 [facility] Comment on above: Performed By: #### C BC ####[facility] Awaozeveqc9336 [place] [id number]. Garima Heraclio MCV (RBC) [Entitic vol] 90.4 fL Normal 80.0-94.0 [facility] Comment on above: Performed By: #### C BC ####[facility] Kzopkzdtui5921 [place] [id number]. Garima Heraclio MONO # 0.6 103/ul Normal 0.3-0.8 [facility] Comment on above: Performed By: #### C BC ####[facility] Wzocusejiw6952 [place] [address]Dr. Garima Heraclio Monocytes/100 WBC (Bld) 5.8 % Normal 1.7-12.0 [facility] Comment on above: Performed By: #### C BC ####[facility] Vmsteqbyum1474 [place], [place] [address]Hz. Garima Pulliam NEUT # 7.8 103/ul Critically high 1.4-6.5 [facility] Comment on above: Performed By: #### C BC ####[facility] Thjavdodxw4542 [place] [id number]. Garima Pulliam Neutrophils/100 WBC (Bld) 72.4 % Normal 43.0-75.0 [facility] Comment on above: Performed By: #### C BC ####[facility] Tflaiqbtiv9731 [place] [id number]. Garima Pulliam Platelet mean volume (Bld) [Entitic vol] 8.7 fL Critically low 9.5-13.5 [facility] Comment on above: Performed By: #### C BC ####[facility] Nevmlpnrcf1667 [place] [id number]. Garima Pulliam PLT 184 103/ul Normal 150-450 [facility] Comment on above: Performed By: #### C BC ####[facility] Kehxftimyv5081 [place], [place] [address]Ro. Garima Pulliam RBC 4.80 106/ul Normal 4.70-6.10 [facility] Comment on above: Performed By: #### C BC ####[facility] Oupoexyfxw6626 [place] [id number]. Garima Pulliam WBC 10.8 103/ul Normal 4.0-11.0 [facility] Comment on above: Performed By: #### C BC ####[facility] Thgkzuwjof5830 [place] [id number]. Garima Pulliam [facility]on 10-24 SARS-CoV-2 (COVID-19) RNA MARIE+probe Ql (Unsp spec) Not detected Normal NOT DETECTED [facility] Comment on above: Result Comment: When [...] for this test is supported by the [place] of Health and Human Service's declaration that [...] used). Performed By: #### C VDTBH ####[facility] Ixkcngvwrz[address] [place], [place] [address]Dr. Garima Pulliam INFLUENZA A AND B AGon 11-20 [facility] SEE BELOW Normal [facility] Comment on above: Result Comment: Nega tive for Flu A protein angiten. Infection due to Flu A cannot be ruled out. Flu A angiten in the sample may be below the detection limit of the test. Performed By: #### I NFLUAB ####[facility] Fajvwdlpeh[address] [place], [place] [address]Dr. Garima Pulliam INFLUBNEGH SEE BELOW Normal [facility] Comment on above: Result Comment: Nega tive for Flu B protein antigen. Infection due to Flu B cannot be ruled out. Flu B antigen in the sample may be below the detection limit of the test. Performed By: #### I NFLUAB ####[facility] Xchknpucin17[address] [place], [place] [address]Dr. Garima Pulliam INFLUENZA A AG Negative Normal NEGATIVE SEE COMMENT [facility] Comment on above: Performed By: #### I NFLUAB ####[facility] Ijcnciyeip64[address] [place], [place] [address]Dr. Garima [facility] INFLUENZA B AG Negative Normal NEGATIVE SEE COMMENT [facility] Comment on above: Performed By: #### I NFLUAB ####[facility] Uzkvphouit7[address] [place], [place] [address]Dr. Garima Pulliam PROF CHEM 8 (BAS METB)on Anion gap [Moles/Vol] 8.2 mmol/L Normal [facility] Comment on above: Performed By: #### B MP, HSTROPN, BNP ####[facility] Wmjfbtxtvk4043 [place] [address]Dr. Garima Pulliam Calcium [Mass/Vol] 8.7 mg/dL Normal 8.5-10.1 [facility] Comment on above: Performed By: #### B MP, HSTROPN, BNP ####[facility] Bioojocpvz3490 [place] [address]Dr. Garima Pulliam Chloride [Moles/Vol] 103 mmol/L Normal 98-107 [facility] Comment on above: Performed By: #### B MP, HSTROPN, BNP ####[facility] Qfzrujvctc[address] [place], [place] [address]Dr. Garima Pulliam CO2 [Moles/Vol] 29.4 mmol/L Normal 21.0-32.0 [facility] Comment on above: Performed By: #### B MP, HSTROPN, BNP ####[facility] Abefpcmtke83[address] [place], [place] [address]Dr. Garima Pulliam Creatinine [Mass/Vol] 0.69 mg/dL Critically low 0.70-1.30 [facility] Comment on above: Performed By: #### B MP, HSTROPN, BNP ####[facility] Ivkmecvbth6328 [place] [address]Dr. Garima Pulliam EGFR-AF TONGAN >60 Normal >=60 [facility] Comment on above: Performed By: #### B MP, HSTROPN, BNP ####[facility] Ypmqdguvlx[address] [place], [place] [address]Dr. Garima Pulliam EGFR-NON AF TONGAN >60 Normal >=60 [facility] Comment on above: Performed By: #### B MP, HSTROPN, BNP ####[facility] Dikxhulsaf9861 [place] [address]Dr. Garima Pulliam Glucose [Mass/Vol] 209 mg/dL Critically high 74-106 [facility] Comment on above: Performed By: #### B MP, HSTROPN, BNP ####[facility] Uuxeoqwrui7643 [place] [address]Dr. Garima Pulliam Potassium [Moles/Vol] 3.6 mmol/L Normal 3.5-5.1 [facility] Comment on above: Performed By: #### B MP, HSTROPN, BNP ####[facility] Ovdonrdnpd3757 [place] [address]Dr. Garima Pulliam Sodium [Moles/Vol] 137 mmol/L Normal 136-145 [facility] Comment on above: Performed By: #### B MP, HSTROPN, BNP ####[facility] Bkftsbmfct7712 [place] [address]Dr. Garima Pulliam Urea nitrogen [Mass/Vol] 11.0 mg/dL Normal 7.0-18.0 [facility] Comment on above: Performed By: #### B MP, HSTROPN, BNP ####[facility] Cwalyfbqck[address] [place] [address]Dr. Garima Pulliam Urea nitrogen/Creatinine [Mass ratio] 15.9 mg/mg Normal [facility] Comment on above: Performed By: #### B MP, HSTROPN, BNP ####[facility] Debodackkd[address] [place] [address]Dr. Garima Pulliam TROPONIN, HIGH SENSITIVITYon 11-20-2022 HSTROP 8.7 pg/mL Normal 4.0-76.1 [facility] Comment on above: Result Comment: CUT- OFF POINTS HAVE BEEN ESTABLISHED BASED ON THE FOURTH UNIVERSAL DEFINITIONS OF MYOCARDIALINFARCTION. THE UPPER REFERENCE LIMIT (URL) OF TROPONIN, DEFINED THE 99TH PERCENTILE OFcTnI DISTRIBUTION IN A REFERENCE POPULATION, HAS BEEN CONFIRMED THE DECISION THRESHOLDFOR [place] DIAGNOSIS. Performed By: #### B MP, HSTROPN, BNP ####[facility] Tvolbxelmr7407 [place] [address]Dr. Garima Pulliam XR CHEST 1 Von 11-20-2022 XR CHEST 1 V Normal [facility] XR CHEST 1 Von 10-02-2022 XR CHEST 1 V Normal [facility] BNPon 09-29-2022 Natriuretic peptide B (Bld) [Mass/Vol] 107.0 pg/mL Normal <=900.0 [facility] Comment on above: Performed By: #### C MP, BNP, CMADM ####[facility] Zdsldhlxnk3671 [place] [address]Dr. Garima Pulliam CARDIAC NASH ADMITon 022 CK [Catalytic activity/Vol] 190 U/L Normal 39-308 [facility] Comment on above: Performed By: #### C MP, BNP, CMADM ####[facility] Orjxrlqsge77[address] [place] [address]Dr. Garima Heraclio CK.MB [Mass/Vol] 11.11 ng/mL Critically high <=3.60 [facility] Comment on above: Performed By: #### C MP, BNP, CMADM ####[facility] Aromnxwwjk97[address] [place] [address]Dr. Garima Pulliam HSTROP 11.8 pg/mL Normal 4.0-76.1 [facility] Comment on above: Result Comment: CUT- OFF POINTS HAVE BEEN ESTABLISHED BASED ON THE FOURTH UNIVERSAL DEFINITIONS OF MYOCARDIALINFARCTION. THE UPPER REFERENCE LIMIT (URL) OF TROPONIN, DEFINED THE 99TH PERCENTILE OFcTnI DISTRIBUTION IN A REFERENCE POPULATION, HAS BEEN CONFIRMED THE DECISION THRESHOLDFOR [place] DIAGNOSIS. Performed By: #### C MP, BNP, CMADM ####[facility] Jnckbxcuib0303 [place] [address]Dr. Garima Pulliam DORIS 133 ng/mL Critically high 16-96 [facility] Comment on above: Performed By: #### C MP, BNP, CMADM ####[facility] Rglaeuierb88[address] [place] [address]Dr. Garima Heraclio CBC AUTO DIFFon 09-29-2022 BASO # 0.0 103/ul Normal 0.0-0.1 [facility] Comment on above: Performed By: #### C BC ####[facility] Eeqaonkysm0732 [place] [address]Dr. Garima Heraclio Basophils/100 WBC (Bld) 0.2 % Normal 0.2-2.0 [facility] Comment on above: Performed By: #### C BC ####[facility] Nfzqtnuvuu2904 [place] [id number]. Garima Pulliam EO # 0.1 103/ul Normal 0.0-0.7 [facility] Comment on above: Performed By: #### C BC ####[facility] Ockutkuwiw7479 [place] [id number]. Garima Pulliam Eosinophils/100 WBC (Bld) 1.4 % Normal 0.9-7.0 [facility] Comment on above: Performed By: #### C BC ####[facility] Deeorutljt47[address] [place], [place] [address]Dr. Garima Pulliam Erythrocyte distribution width (RBC) [Ratio] 13.7 % Normal 11.0-15.0 [facility] Comment on above: Performed By: #### C BC ####[facility] Jacdfoumbj367[address] [place], [place] [address]Dr. Garima Pulliam Hematocrit (Bld) [Volume fraction] 45.4 % Normal 42.0-54.0 [facility] Comment on above: Performed By: #### C BC ####[facility] Njxnimtvvb[address] [place], [place] [address]Dr. Garima Pulliam Hemoglobin (Bld) [Mass/Vol] 14.8 g/dL Normal 14.0-18.0 [facility] Comment on above: Performed By: #### C BC ####[facility] Ulyotxbmrj7[address] [place], [place] [address]Dr. Garima Pulliam IG # 0.04 10e3/ul Critically high 0.00-0.03 [facility] Comment on above: Performed By: #### C BC ####[facility] Ufstueuede[address] [place], [place] [address]Dr. Garima Pulliam IG % 0.5 % Normal 0.0-0.5 [facility] Comment on above: Performed By: #### C BC ####[facility] Umjxvimmup9[address] [place], [place] [address]Dr. Garima Pulliam LYMPH # 1.1 103/ul Critically low 1.2-3.8 [facility] Comment on above: Performed By: #### C BC ####[facility] Vnqwjgmwmr1644 [place] [id number]. Garima Pulliam Lymphocytes/100 WBC (Bld) 12.7 % Critically low 20.5-60.0 [facility] Comment on above: Performed By: #### C BC ####[facility] Diixapaxkm5082 [place] [id number]. Chapisrenu Pulliam MANUAL DIFF REQ NO Normal [facility] Comment on above: Performed By: #### C BC ####[facility] Anfeznbtdj[address] [place], [place] [id number]. Garima Heraclio MCH (RBC) [Entitic mass] 30.0 pg Normal 25.9-34.0 [facility] Comment on above: Performed By: #### C BC ####[facility] Nxtcwgotvj[address] [place], [place] [address]Dr. Garima Heraclio MCHC (RBC) [Mass/Vol] 32.6 g/dL Normal 29.9-35.2 [facility] Comment on above: Performed By: #### C BC ####[facility] Uqoafkb[address] [place], [place] [id number]. Garima Heraclio MCV (RBC) [Entitic vol] 91.9 fL Normal 80.0-94.0 [facility] Comment on above: Performed By: #### C BC ####[facility] Trdznbkjsi97[address] [place], [place] [address]Dr. Garima Pulliam MONO # 0.4 103/ul Normal 0.3-0.8 [facility] Comment on above: Performed By: #### C BC ####[facility] Swqotdbtfx[address] [place], [place] [phone]. Chapisrenu Pulliam Monocytes/100 WBC (Bld) 4.8 % Normal 1.7-12.0 [facility] Comment on above: Performed By: #### C BC ####[facility] Rawbfduito[address] [place], [place] [address]Dr. Garima Pulliam NEUT # 7.1 103/ul Critically high 1.4-6.5 [facility] Comment on above: Performed By: #### C BC ####[facility] Vhypbnxbpo3376 [place], [place] [address]Ks. Garima Pulliam Neutrophils/100 WBC (Bld) 80.4 % Critically high 43.0-75.0 [facility] Comment on above: Performed By: #### C BC ####[facility] Qpopdgieey1579 [place] [id number]. Garima Pulliam Platelet mean volume (Bld) [Entitic vol] 9.1 fL Critically low 9.5-13.5 [facility] Comment on above: Performed By: #### C BC ####[facility] Jbmzzjgqau1836 [place] [id number]. Garima Pulliam PLT 200 103/ul Normal 150-450 [facility] Comment on above: Performed By: #### C BC ####[facility] Hdlbkewbpq6980 [place] [id number]. Garima Pulliam RBC 4.94 106/ul Normal 4.70-6.10 [facility] Comment on above: Performed By: #### C BC ####[facility] Fkjrjoykxs7613 [place] [id number]. Garima Pulliam WBC 8.9 103/ul Normal 4.0-11.0 [facility] Comment on above: Performed By: #### C BC ####[facility] Frvxupyjiw5718 [place] [id number]. Garima Pulliam Covid-19 PCR (CVDTB)on SARS-CoV-2 (COVID-19) RNA MARIE+probe Ql (Unsp spec) Not detected Normal NOT DETECTED [facility] Comment on above: Result Comment: When [...] for this test is supported by the [place] of Health and Human Service's declaration that [...] used). Performed By: #### C VDTBH ####[facility] Dkyffjnrud8687 [place] [address]Dr. Garima Pulliam LACTATE/LACTIC ACIDon 2021 Lactate [Moles/Vol] 1.7 mmol/L Normal 0.4-1.9 [facility] Comment on above: Performed By: #### L ACT ####[facility] Ufazzcwwvv[address] [place], [place] [address]Dr. Garima Pulliam PROF 14(COMP METB)on 022 Albumin [Mass/Vol] 3.8 g/dL Normal 3.4-5.0 [facility] Comment on above: Performed By: #### C MP, BNP, CMADM ####[facility] Krkamnyozm[address] [place], [place] [address]Dr. Garima Pulliam Albumin/Globulin [Mass ratio] 1.5 {ratio} Normal [facility] Comment on above: Performed By: #### C MP, BNP, CMADM ####[facility] Huyenkhjmh2484 [place] [address]Dr. Garima Pulliam ALP [Catalytic activity/Vol] 62 U/L Normal 46-116 [facility] Comment on above: Performed By: #### C MP, BNP, CMADM ####[facility] Yksfwpdgtp0382 [place] [address]Dr. Garima Pulliam ALT [Catalytic activity/Vol] 37 U/L Normal 16-63 [facility] Comment on above: Performed By: #### C MP, BNP, CMADM ####[facility] Qkprxctpqg1976 [place] [address]Dr. Garima Pulliam Anion gap [Moles/Vol] 8.0 mmol/L Normal [facility] Comment on above: Performed By: #### C MP, BNP, CMADM ####[facility] Pkndycconh5063 [place] [address]Dr. Garima Pulliam AST [Catalytic activity/Vol] 20 U/L Normal 15-37 [facility] Comment on above: Performed By: #### C MP, BNP, CMADM ####[facility] Hhouzhogsd9137 [place] [address]Dr. Garima Pulliam Bilirubin [Mass/Vol] 0.6 mg/dL Normal 0.2-1.0 [facility] Comment on above: Performed By: #### C MP, BNP, CMADM ####[facility] Eapztbxrtb3015 [place] [address]Dr. Garima Pulliam Calcium [Mass/Vol] 9.1 mg/dL Normal 8.5-10.1 [facility] Comment on above: Performed By: #### C MP, BNP, CMADM ####[facility] Nymoioynbm4[address] [place], [place] [address]Dr. Garima Pulliam Chloride [Moles/Vol] 103 mmol/L Normal 98-107 [facility] Comment on above: Performed By: #### C MP, BNP, CMADM ####[facility] Xnrlezuzsb[address] [place], [place] [address]Dr. Garima Pulliam CO2 [Moles/Vol] 31.8 mmol/L Normal 21.0-32.0 [facility] Comment on above: Performed By: #### C MP, BNP, CMADM ####[facility] Jwyjjalefv[address] [place], [place] [address]Dr. Garima Pulliam Creatinine [Mass/Vol] 0.63 mg/dL Critically low 0.70-1.30 [facility] Comment on above: Performed By: #### C MP, BNP, CMADM ####[facility] Yiigpkysap9[address] [place], [place] [address]Dr. Garima Pulliam EGFR-AF TONGAN >60 Normal >=60 [facility] Comment on above: Performed By: #### C MP, BNP, CMADM ####[facility] Qmcwwvevhs6[address] [place], [place] [address]Dr. Garima Pulliam EGFR-NON AF TONGAN >60 Normal >=60 [facility] Comment on above: Performed By: #### C MP, BNP, CMADM ####[facility] Tjgaycqntd9762 [place] [address]Dr. Garima Pulliam Globulin (S) [Mass/Vol] 2.6 g/dL Normal [facility] Comment on above: Performed By: #### C MP, BNP, CMADM ####[facility] Fxiaqijeba2261 [place] [address]Dr. Garima Pulliam Glucose [Mass/Vol] 103 mg/dL Normal 74-106 [facility] Comment on above: Performed By: #### C MP, BNP, CMADM ####[facility] Mtpxxlcoif7138 [place] [address]Dr. Garima Pulliam Potassium [Moles/Vol] 3.8 mmol/L Normal 3.5-5.1 [facility] Comment on above: Performed By: #### C MP, BNP, CMADM ####[facility] Eopgpdmxtw8330 [place] [address]Dr. Garima Pulliam Protein [Mass/Vol] 6.4 g/dL Normal 6.4-8.2 [facility] Comment on above: Performed By: #### C MP, BNP, CMADM ####[facility] Rqbqanffpx9592 [place] [address]Dr. Garima Pulliam Sodium [Moles/Vol] 139 mmol/L Normal 136-145 [facility] Comment on above: Performed By: #### C MP, BNP, CMADM ####[facility] Cmipnhtmez2824 [place] [address]Dr. Garima Pulliam Urea nitrogen [Mass/Vol] 7.0 mg/dL Normal 7.0-18.0 [facility] Comment on above: Performed By: #### C MP, BNP, CMADM ####[facility] Eestxplaxg1875 [place] [address]Dr. Garima Pulliam Urea nitrogen/Creatinine [Mass ratio] 11.1 mg/mg Normal [facility] Comment on above: Performed By: #### C MP, BNP, CMADM ####[facility] Ursbsubbqw8292 [place] [address]Dr. Garima Pulliam PROTIMEon 09-29-2022 INR Coag (PPP) [Relative time] 1.14 {INR} Normal [facility] Comment on above: Performed By: #### P T, PTT ####[facility] Tmfyjhyfwl9[address] [place], [place] [address]Dr. Garima Pulliam INR GUIDELINES SEE BELOW Normal [facility] Comment on above: Result Comment: [place] RED INR: 2.0 - 3.0 CONDITIONS NOT LISTED BELOW 2.5 - 3.5 FOR PROSTHETIC HEART VALVE REPLACEMENT 2.5 - 3.5 RECURRENT THROMBOSIS Performed By: #### P T, PTT ####[facility] Dlogxgegma74[address] [place], [place] [address]Dr. Garima Pulliam PT Coag (PPP) [Time] 12.2 s Critically high 9.0-11.6 [facility] Comment on above: Performed By: #### P T, PTT ####[facility] Ktzehpiocx672[address] [place], [place] [address]Dr. Garima Pulliam PTTon 09-29-2022 aPTT Coag (Bld) [Time] 29.3 s Normal 22.3-36.2 [facility] Comment on above: Performed By: #### P T, PTT ####[facility] Ecpzmgjshj[address] [place], [place] [address]Dr. Garima Pulliam XR CHEST 1 Von 09-29-2022 XR CHEST 1 V Normal [facility] CBC AUTO DIFFon 09-26-2022 BASO # 0.0 103/ul Normal 0.0-0.1 [facility] Comment on above: Performed By: #### C BC ####[facility] Kfeqleuwmt485[address] [place], [place] [address]Dr. Garima Pulliam Basophils/100 WBC (Bld) 0.2 % Normal 0.2-2.0 [facility] Comment on above: Performed By: #### C BC ####[facility] Irbgggiwkb3280[address] [place], [place] [address]Dr. Garima Pulliam EO # 0.1 103/ul Normal 0.0-0.7 [facility] Comment on above: Performed By: #### C BC ####[facility] Xhixszoytt29[address] [place], [place] [address]Dr. Garima Pulliam Eosinophils/100 WBC (Bld) 1.0 % Normal 0.9-7.0 [facility] Comment on above: Performed By: #### C BC ####[facility] Qpeguirnwo45[address] [place], [place] [address]Dr. Garima Pulliam Erythrocyte distribution width (RBC) [Ratio] 13.4 % Normal 11.0-15.0 [facility] Comment on above: Performed By: #### C BC ####[facility] Apcmxtjtkt48[address] [place], [place] [address]Dr. Garima Pulliam Hematocrit (Bld) [Volume fraction] 46.3 % Normal 42.0-54.0 [facility] Comment on above: Performed By: #### C BC ####[facility] Acunwtgerc6[address] [place], [place] [address]Dr. Garima Pulliam Hemoglobin (Bld) [Mass/Vol] 15.3 g/dL Normal 14.0-18.0 [facility] Comment on above: Performed By: #### C BC ####[facility] Kgqlphamgq9[address] [place], [place] [address]Dr. Garima Pulliam IG # 0.05 10e3/ul Critically high 0.00-0.03 [facility] Comment on above: Performed By: #### C BC ####[facility] Payxmpnwpl54[address] [place], [place] [address]Dr. Garima Pulliam IG % 0.4 % Normal 0.0-0.5 [facility] Comment on above: Performed By: #### C BC ####[facility] Mgmqpuspnd433[address] [place], [place] [address]Dr. Garima Pulliam LYMPH # 1.7 103/ul Normal 1.2-3.8 [facility] Comment on above: Performed By: #### C BC ####[facility] Mozygklmyu599[address] [place], [place] [address]Dr. Garima Pulliam Lymphocytes/100 WBC (Bld) 12.7 % Critically low 20.5-60.0 [facility] Comment on above: Performed By: #### C BC ####[facility] Knpkperxyg7337 [place] [address]DrAdalberto Pulliam MANUAL DIFF REQ NO Normal [facility] Comment on above: Performed By: #### C BC ####[facility] Hospttzylq4309 [place] [address]Dr. Garima Pulliam MCH (RBC) [Entitic mass] 30.1 pg Normal 25.9-34.0 [facility] Comment on above: Performed By: #### C BC ####[facility] Vfivkvtjgz[address] [place], [place] [address]Dr. Garima Pulliam MCHC (RBC) [Mass/Vol] 33.0 g/dL Normal 29.9-35.2 [facility] Comment on above: Performed By: #### C BC ####[facility] Nzltzjbsnn99[address] [place], [place] [address]DrAdalberto Pulliam MCV (RBC) [Entitic vol] 91.1 fL Normal 80.0-94.0 [facility] Comment on above: Performed By: #### C BC ####[facility] Tmwagxdzdb[address] [place], [place] [address]DrAdalberto Pulliam MONO # 0.9 103/ul Critically high 0.3-0.8 [facility] Comment on above: Performed By: #### C BC ####[facility] Ahuisbdrur[address] [place], [place] [address]DrAdalberto Pulliam Monocytes/100 WBC (Bld) 7.0 % Normal 1.7-12.0 [facility] Comment on above: Performed By: #### C BC ####[facility] Bdctxvblfm310[address] [place], [place] [address]DrAdalberto Pulliam NEUT # 10.4 103/ul Critically high 1.4-6.5 [facility] Comment on above: Performed By: #### C BC ####[facility] Zhinwmphtd576[address] [place], [place] [address]DrAdalberto Pulliam Neutrophils/100 WBC (Bld) 78.7 % Critically high 43.0-75.0 [facility] Comment on above: Performed By: #### C BC ####[facility] Odebvwqcln3661 [place] [address]Dr. Garima Pulliam Platelet mean volume (Bld) [Entitic vol] 8.9 fL Critically low 9.5-13.5 [facility] Comment on above: Performed By: #### C BC ####[facility] Rootndohhv3682 [place] [address]Dr. Garima Pulliam PLT 195 103/ul Normal 150-450 [facility] Comment on above: Performed By: #### C BC ####[facility] Qpgkumlbsz[address] [place], [place] [address]Dr. Garima Pulliam RBC 5.08 106/ul Normal 4.70-6.10 [facility] Comment on above: Performed By: #### C BC ####[facility] Hlnqwbjtjo[address] [place], [place] [address]Dr. Garima Pulliam WBC 13.2 103/ul Critically high 4.0-11.0 [facility] Comment on above: Performed By: #### C BC ####[facility] Bqjfranjzx[address] [place], [place] [address]Dr. Garima Pulliam PROF 14(COMP METB)on 022 Albumin [Mass/Vol] 3.5 g/dL Normal 3.4-5.0 [facility] Comment on above: Performed By: #### C DAVID HSTROPN ####[facility] Tqqysbasuh2604 [place] [address]Dr. Garima Pulliam Albumin/Globulin [Mass ratio] 1.2 {ratio} Normal [facility] Comment on above: Performed By: #### C RAFAT HERNANDEZTROPN ####[facility] Nvaehjyysd8987 [place] [address]Dr. Garima Pulliam ALP [Catalytic activity/Vol] 71 U/L Normal 46-116 [facility] Comment on above: Performed By: #### C DAVID HSTROPN ####[facility] Zduqdxklry0787 [place] [address]Dr. Garima Pulliam ALT [Catalytic activity/Vol] 37 U/L Normal 16-63 [facility] Comment on above: Performed By: #### C DAVID, HSTROPN ####[facility] Klbgmqcreg1160 [place] [address]Dr. Garima Pulliam Anion gap [Moles/Vol] 4.8 mmol/L Normal [facility] Comment on above: Performed By: #### C DAVID, HSTROPN ####[facility] Hmeisswveo198[address] [place], [place] [address]Dr. Garima Pulliam AST [Catalytic activity/Vol] 21 U/L Normal 15-37 [facility] Comment on above: Performed By: #### C DAVID, HSTROPN ####[facility] Djhahtskea[address] [place], [place] [address]Dr. Garima Pulliam Bilirubin [Mass/Vol] 0.3 mg/dL Normal 0.2-1.0 [facility] Comment on above: Performed By: #### C DAVID, HSTROPN ####[facility] Wirmdophbb5173 [place] [address]Dr. Garima Pulliam Calcium [Mass/Vol] 8.9 mg/dL Normal 8.5-10.1 [facility] Comment on above: Performed By: #### C DAVID, HSTROPN ####[facility] Qruoyuzvir6473 [place] [address]Dr. Garima Pulliam Chloride [Moles/Vol] 106 mmol/L Normal 98-107 [facility] Comment on above: Performed By: #### C DAVID, HSTROPN ####[facility] Owtarlnhjd2910 [place] [address]Dr. Garima Pulliam CO2 [Moles/Vol] 29.8 mmol/L Normal 21.0-32.0 [facility] Comment on above: Performed By: #### C DAVID, HSTROPN ####[facility] Axwsggfaom5239 [place] [address]Dr. Garima Pulliam Creatinine [Mass/Vol] 0.68 mg/dL Critically low 0.70-1.30 [facility] Comment on above: Performed By: #### C MP, HSTROPN ####[facility] Srntoijbpc2938 [place] [address]Dr. Garima Pulliam EGFR-AF TONGAN >60 Normal >=60 [facility] Comment on above: Performed By: #### C MP, HSTROPN ####[facility] Lpivoowrsm0825 [place] [address]Dr. Chapislan Pulliam EGFR-NON AF TONGAN >60 Normal >=60 [facility] Comment on above: Performed By: #### C MP, HSTROPN ####[facility] Aoqiakjrod5[address] [place] [address]Dr. Garima Pulliam Globulin (S) [Mass/Vol] 2.8 g/dL Normal [facility] Comment on above: Performed By: #### C MP, HSTROPN ####[facility] Pukcdovctp6019 [place] [address]Dr. Garima Pulliam Glucose [Mass/Vol] 133 mg/dL Critically high 74-106 [facility] Comment on above: Performed By: #### C MP, HSTROPN ####[facility] Erbvevexoy4186 [place] [address]Dr. Chapisrenu Pulliam Potassium [Moles/Vol] 3.6 mmol/L Normal 3.5-5.1 [facility] Comment on above: Performed By: #### C MP, HSTROPN ####[facility] Bvywmpyglf2454 [place] [address]Dr. Chapisrenu Pulliam Protein [Mass/Vol] 6.3 g/dL Critically low 6.4-8.2 Th [facility] Comment on above: Performed By: #### C MP, HSTROPN ####[facility] Cugptjx[address] [place], [place] [address]Dr. Chapisrenu Pulliam Sodium [Moles/Vol] 137 mmol/L Normal 136-145 [facility] Comment on above: Performed By: #### C MP, HSTROPN ####[facility] Zxzwmkvfmg[address] [place], [place] [address]Dr. Garima Pulliam Urea nitrogen [Mass/Vol] 15.0 mg/dL Normal 7.0-18.0 [facility] Comment on above: Performed By: #### C DAVID HSTROPN ####[facility] Kuaqmyfmlr0505 [place] [address]Dr. Chapisrenu Pulliam Urea nitrogen/Creatinine [Mass ratio] 22.1 mg/mg Normal [facility] Comment on above: Performed By: #### C DAVID HSTROPN ####[facility] Agddrpavrc8386 [place] [address]Dr. Garima Heraclio TROPONIN, HIGH SENSITIVITYon 09-26-2022 HSTROP 12.8 pg/mL Normal 4.0-76.1 [facility] Comment on above: Result Comment: CUT- OFF POINTS HAVE BEEN ESTABLISHED BASED ON THE FOURTH UNIVERSAL DEFINITIONS OF MYOCARDIALINFARCTION. THE UPPER REFERENCE LIMIT (URL) OF TROPONIN, DEFINED THE 99TH PERCENTILE OFcTnI DISTRIBUTION IN A REFERENCE POPULATION, HAS BEEN CONFIRMED THE DECISION THRESHOLDFOR [place] DIAGNOSIS. Performed By: #### C DAVID HSTROPN ####[facility] Ujgftzwkkk8178 [place] [address]Dr. Chapisrenu Pulliam XR CHEST 1 Von 09-26-2022 XR CHEST 1 V Normal [facility] XR CHEST 1 Von 09-16-2022 XR CHEST 1 V Normal [facility] CBC AUTO DIFFon 09-15-2022 BASO # 0.0 103/ul Normal 0.0-0.1 [facility] Comment on above: Performed By: #### C BC ####[facility] Zklpehvdsb6254 [place] [address]Dr. Garima Heraclio Basophils/100 WBC (Bld) 0.1 % Critically low 0.2-2.0 [facility] Comment on above: Performed By: #### C BC ####[facility] Qvdbzqfhgu8812 [place] [address]Dr. Garima Pulliam EO # 0.0 103/ul Normal 0.0-0.7 [facility] Comment on above: Performed By: #### C BC ####[facility] Eyjorzsjpz8194 [place] [address]Dr. Garmia Pulliam Eosinophils/100 WBC (Bld) 0.1 % Critically low 0.9-7.0 [facility] Comment on above: Performed By: #### C BC ####[facility] Xxxogvdmll7536 [place] [address]Dr. Garima Pulliam Erythrocyte distribution width (RBC) [Ratio] 14.1 % Normal 11.0-15.0 [facility] Comment on above: Performed By: #### C BC ####[facility] Uxxqaatits8[address] [place], [place] [address]Dr. Garima Pulliam Hematocrit (Bld) [Volume fraction] 46.1 % Normal 42.0-54.0 [facility] Comment on above: Performed By: #### C BC ####[facility] Hjxqdchibk38[address] [place], [place] [address]Dr. Garima Pulliam Hemoglobin (Bld) [Mass/Vol] 15.0 g/dL Normal 14.0-18.0 [facility] Comment on above: Performed By: #### C BC ####[facility] Shkdvjijgg84[address] [place], [place] [address]Dr. Garima Pulliam IG # 0.03 10e3/ul Normal 0.00-0.03 [facility] Comment on above: Performed By: #### C BC ####[facility] Gigthxmhgv[address] [place], [place] [address]Dr. Garima Pulliam IG % 0.3 % Normal 0.0-0.5 [facility] Comment on above: Performed By: #### C BC ####[facility] Hcobavtfxz50[address] [place], [place] [address]Dr. Garima Pulliam LYMPH # 0.6 103/ul Critically low 1.2-3.8 The [facility] Comment on above: Performed By: #### C BC ####[facility] Pcojtikfcf[address] [place], [place] [address]Dr. Garima Pulliam Lymphocytes/100 WBC (Bld) 5.8 % Critically low 20.5-60.0 [facility] Comment on above: Performed By: #### C BC ####[facility] Jtvombpvge0218 [place] [id number]. Garima Pulliam MANUAL DIFF REQ NO Normal [facility] Comment on above: Performed By: #### C BC ####[facility] Tesevpbhjj5088 [place] [id number]. Garima Pulliam MCH (RBC) [Entitic mass] 30.2 pg Normal 25.9-34.0 [facility] Comment on above: Performed By: #### C BC ####[facility] Fzubnfabai6433 [place] [address]Dr. Garima Pulliam MCHC (RBC) [Mass/Vol] 32.5 g/dL Normal 29.9-35.2 [facility] Comment on above: Performed By: #### C BC ####[facility] Gmqykwlwhz2563 [place] [address]Dr. Garima Pulliam MCV (RBC) [Entitic vol] 92.8 fL Normal 80.0-94.0 [facility] Comment on above: Performed By: #### C BC ####[facility] Tsjaddrhll6939 [place] [address]Dr. Garima Heraclio MONO # 0.3 103/ul Normal 0.3-0.8 [facility] Comment on above: Performed By: #### C BC ####[facility] Byvybofqjf3574 [place] [id number]. Garima Heraclio Monocytes/100 WBC (Bld) 3.2 % Normal 1.7-12.0 [facility] Comment on above: Performed By: #### C BC ####[facility] Mrplskcprb6767 [place] [id number]. Garima Pulliam NEUT # 9.8 103/ul Critically high 1.4-6.5 [facility] Comment on above: Performed By: #### C BC ####[facility] Xgjttiplna1885 [place] [id number]. Garima Pulliam Neutrophils/100 WBC (Bld) 90.5 % Critically high 43.0-75.0 [facility] Comment on above: Performed By: #### C BC ####[facility] Gpnaiknmce7183 [place] [id number]. Garima Pulliam Platelet mean volume (Bld) [Entitic vol] 9.4 fL Critically low 9.5-13.5 [facility] Comment on above: Performed By: #### C BC ####[facility] Sovoddovwf5748 [place] [id number]. Garima Pulliam PLT 208 103/ul Normal 150-450 [facility] Comment on above: Performed By: #### C BC ####[facility] Vcqwffxqoo4232 [place] [address]Dr. Garima Pulliam RBC 4.97 106/ul Normal 4.70-6.10 [facility] Comment on above: Performed By: #### C BC ####[facility] Swpzjgwqks8775 [place] [address]Dr. Garima Pulliam WBC 10.8 103/ul Normal 4.0-11.0 [facility] Comment on above: Performed By: #### C BC ####[facility] Oahdamzddg6681 [place] [address]Dr. Garima Pulliam PROF 14(COMP METB)on 022 Albumin [Mass/Vol] 4.0 g/dL Normal 3.4-5.0 [facility] Comment on above: Performed By: #### C MP ####[facility] Einigylosf2339 [place] [address]Dr. Garima Pulliam Albumin/Globulin [Mass ratio] 1.5 {ratio} Normal [facility] Comment on above: Performed By: #### C MP ####[facility] Lpirtkxfkd3595 [place] [address]Dr. Garima Pulliam ALP [Catalytic activity/Vol] 73 U/L Normal 46-116 [facility] Comment on above: Performed By: #### C MP ####[facility] Gbozpoievy2848 [place] [address]Dr. Garima Pulliam ALT [Catalytic activity/Vol] 42 U/L Normal 16-63 [facility] Comment on above: Performed By: #### C MP ####[facility] Iostqwuqll0126 [place] [address]Dr. Garima Pulliam Anion gap [Moles/Vol] 9.1 mmol/L Normal [facility] Comment on above: Performed By: #### C MP ####[facility] Pieqcdskac40[address] [place], [place] [address]Dr. Garima Pulliam AST [Catalytic activity/Vol] 28 U/L Normal 15-37 [facility] Comment on above: Performed By: #### C MP ####[facility] Fldijbmmgy7[address] [place], [place] [address]Dr. Garima Pulliam Bilirubin [Mass/Vol] 0.6 mg/dL Normal 0.2-1.0 [facility] Comment on above: Performed By: #### C MP ####[facility] Jkybfngnpj9109[address] [place], [place] [address]Dr. Garima Pulliam Calcium [Mass/Vol] 8.6 mg/dL Normal 8.5-10.1 [facility] Comment on above: Performed By: #### C MP ####[facility] Wzjhrwdhgm88[address] [place], [place] [address]Dr. Garima Pulliam Chloride [Moles/Vol] 105 mmol/L Normal 98-107 [facility] Comment on above: Performed By: #### C MP ####[facility] Xmgcostawt8[address] [place], [place] [address]Dr. Garima Pulliam CO2 [Moles/Vol] 28.5 mmol/L Normal 21.0-32.0 [facility] Comment on above: Performed By: #### C MP ####[facility] Aejxaekdoh8[address] [place], [place] [address]Dr. Garima Heraclio Creatinine [Mass/Vol] 0.78 mg/dL Normal 0.70-1.30 [facility] Comment on above: Performed By: #### C MP ####[facility] Evshkmmdhh6325[address] [place], [place] [address]Dr. Chapisrenu Heraclio EGFR-AF TONGAN >60 Normal >=60 [facility] Comment on above: Performed By: #### C MP ####[facility] Epfxjdrjmh1489[address] [place], [place] [address]Dr. Garima Pulliam EGFR-NON AF TONGAN >60 Normal >=60 [facility] Comment on above: Performed By: #### C MP ####[facility] Orzavahhzb1673 [place] [address]Dr. Garima Pulliam Globulin (S) [Mass/Vol] 2.7 g/dL Normal [facility] Comment on above: Performed By: #### C MP ####[facility] Fulppwbplq4443 [place] [address]Dr. Garima Pulliam Glucose [Mass/Vol] 220 mg/dL Critically high 74-106 [facility] Comment on above: Performed By: #### C MP ####[facility] Lnvmywfsyn9895 [place] [address]Dr. Garima Pulliam Potassium [Moles/Vol] 3.6 mmol/L Normal 3.5-5.1 [facility] Comment on above: Performed By: #### C MP ####[facility] Lpyprxeqmh2[address] [place], [place] [address]Dr. Garima Pulliam Protein [Mass/Vol] 6.7 g/dL Normal 6.4-8.2 [facility] Comment on above: Performed By: #### C MP ####[facility] Bdgiixykuk6[address] [place], [place] [address]Dr. Garima Pulliam Sodium [Moles/Vol] 139 mmol/L Normal 136-145 [facility] Comment on above: Performed By: #### C MP ####[facility] Udqwgfcloh1054[address] [place], [place] [address]Dr. Garima Pulliam Urea nitrogen [Mass/Vol] 11.0 mg/dL Normal 7.0-18.0 [facility] Comment on above: Performed By: #### C MP ####[facility] Qtavzcsxbh5923[address] [place], [place] [address]Dr. Garima Pulliam Urea nitrogen/Creatinine [Mass ratio] 14.1 mg/mg Normal [facility] Comment on above: Performed By: #### C MP ####[facility] Wurljdnuzy5[address] [place], [place] [address]Dr. Garima Pulliam CARDIAC NASH 3-6on 2 CK [Catalytic activity/Vol] 240 U/L Normal 39-308 [facility] Comment on above: Performed By: #### C MREP ####[facility] Qsehqtjeoi4992 [place] [address]Dr. Garima Pulliam CK.MB [Mass/Vol] 10.38 ng/mL Critically high <=3.60 [facility] Comment on above: Performed By: #### C MREP ####[facility] Xnmcuythoy0734 [place] [address]Dr. Garima Pulliam HSTROP 18.5 pg/mL Normal 4.0-76.1 [facility] Comment on above: Result Comment: CUT- OFF POINTS HAVE BEEN ESTABLISHED BASED ON THE FOURTH UNIVERSAL DEFINITIONS OF MYOCARDIALINFARCTION. THE UPPER REFERENCE LIMIT (URL) OF TROPONIN, DEFINED THE 99TH PERCENTILE OFcTnI DISTRIBUTION IN A REFERENCE POPULATION, HAS BEEN CONFIRMED THE DECISION THRESHOLDFOR [place] DIAGNOSIS. Performed By: #### C MREP ####[facility] Twetwgnjfc8316 [place] [address]Dr. Garima Pulliam CK [Catalytic activity/Vol] 257 U/L Normal 39-308 [facility] Comment on above: Performed By: #### C MREP ####[facility] Isuqghwamp178[address] [place], [place] [address]Dr. Garima Pulliam CK.MB [Mass/Vol] 9.89 ng/mL Critically high <=3.60 [facility] Comment on above: Performed By: #### C MREP ####[facility] Mmwuylmfxn9[address] [place], [place] [address]Dr. Garima Pulliam HSTROP 16.9 pg/mL Normal 4.0-76.1 [facility] Comment on above: Result Comment: CUT- OFF POINTS HAVE BEEN ESTABLISHED BASED ON THE FOURTH UNIVERSAL DEFINITIONS OF MYOCARDIALINFARCTION. THE UPPER REFERENCE LIMIT (URL) OF TROPONIN, DEFINED THE 99TH PERCENTILE OFcTnI DISTRIBUTION IN A REFERENCE POPULATION, HAS BEEN CONFIRMED THE DECISION THRESHOLDFOR [place] DIAGNOSIS. Performed By: #### C MREP ####[facility] Xeadmfklxz8733 [place] [address]Dr. Garima Heraclio CBC AUTO DIFFon 10-22-2022 BASO # 0.0 103/ul Normal 0.0-0.1 [facility] Comment on above: Performed By: #### C BC ####[facility] Agjjmqojop8093 [place] [id number]. Garima Pulliam Basophils/100 WBC (Bld) 0.1 % Critically low 0.2-2.0 [facility] Comment on above: Performed By: #### C BC ####[facility] Liwjdbpeng0667 [place] [address]Dr. Garima Pulliam EO # 0.0 103/ul Normal 0.0-0.7 [facility] Comment on above: Performed By: #### C BC ####[facility] Kltnmgqgas196[address] [place], [place] [address]Dr. Chapisrenu Heraclio Eosinophils/100 WBC (Bld) 0.0 % Critically low 0.9-7.0 [facility] Comment on above: Performed By: #### C BC ####[facility] Gaauzgzfkv0[address] [place], [place] [address]Dr. Garima Pulliam Erythrocyte distribution width (RBC) [Ratio] 13.6 % Normal 11.0-15.0 [facility] Comment on above: Performed By: #### C BC ####[facility] Msurhchubn597[address] [place], [place] [address]Dr. Garima Pulliam Hematocrit (Bld) [Volume fraction] 48.2 % Normal 42.0-54.0 [facility] Comment on above: Performed By: #### C BC ####[facility] Ugzluhkojb357[address] [place], [place] [address]Dr. Garima Pulliam Hemoglobin (Bld) [Mass/Vol] 16.0 g/dL Normal 14.0-18.0 [facility] Comment on above: Performed By: #### C BC ####[facility] Lfbmlpwwwm898[address] [place], [place] [address]Dr. Chapisrenu Heraclio IG # 0.02 10e3/ul Normal 0.00-0.03 [facility] Comment on above: Performed By: #### C BC ####[facility] Mgzkriaeqj6634 [place] [id number]. Garima Pulliam IG % 0.3 % Normal 0.0-0.5 [facility] Comment on above: Performed By: #### C BC ####[facility] Zrxtltpbkz5923 [place] [address]Dr. Garima Heraclio LYMPH # 0.5 103/ul Critically low 1.2-3.8 The [facility] Comment on above: Performed By: #### C BC ####[facility] Bnpokzrdcw6666 [place] [address]Dr. Garima Heraclio Lymphocytes/100 WBC (Bld) 7.7 % Critically low 20.5-60.0 [facility] Comment on above: Performed By: #### C BC ####[facility] Oasjjkttsg[address] [place], [place] [address]Dr. Chapisrenu Pulliam MANUAL DIFF REQ NO Normal [facility] Comment on above: Performed By: #### C BC ####[facility] Qmpblogybb701[address] [place], [place] [address]Dr. Garima Heraclio MCH (RBC) [Entitic mass] 30.6 pg Normal 25.9-34.0 [facility] Comment on above: Performed By: #### C BC ####[facility] Pjdjvuldsz754[address] [place], [place] [address]Dr. Garima Pulliam MCHC (RBC) [Mass/Vol] 33.2 g/dL Normal 29.9-35.2 [facility] Comment on above: Performed By: #### C BC ####[facility] Tzwomwdash20[address] [place], [place] [address]Dr. Garima Heraclio MCV (RBC) [Entitic vol] 92.2 fL Normal 80.0-94.0 [facility] Comment on above: Performed By: #### C BC ####[facility] Nrgmjaqulw886[address] [place], [place] [address]Dr. Garima Pulliam MONO # 0.0 103/ul Critically low 0.3-0.8 [facility] Comment on above: Performed By: #### C BC ####[facility] Xfvrkaotzs6781 [place] [id number]. Garima Pulliam Monocytes/100 WBC (Bld) 0.4 % Critically low 1.7-12.0 [facility] Comment on above: Performed By: #### C BC ####[facility] Bbythcdlii9340 [place] [id number]. Garima Pulliam NEUT # 6.2 103/ul Normal 1.4-6.5 [facility] Comment on above: Performed By: #### C BC ####[facility] Zziykktyss7637 [place] [address]Dr. Garima Pulliam Neutrophils/100 WBC (Bld) 91.5 % Critically high 43.0-75.0 [facility] Comment on above: Performed By: #### C BC ####[facility] Grvukoujlh1087 [place] [address]Dr. Garima Pulliam Platelet mean volume (Bld) [Entitic vol] 8.7 fL Critically low 9.5-13.5 [facility] Comment on above: Performed By: #### C BC ####[facility] Nwxqwolfav1916 [place] [address]Dr. Garima Pulliam PLT 179 103/ul Normal 150-450 [facility] Comment on above: Performed By: #### C BC ####[facility] Jvmjvniktg3912 [place] [id number]. Garima Pulliam RBC 5.23 106/ul Normal 4.70-6.10 [facility] Comment on above: Performed By: #### C BC ####[facility] Ktfqitxjyu5678 [place] [address]Dr. Garima Pulliam WBC 6.7 103/ul Normal 4.0-11.0 [facility] Comment on above: Performed By: #### C BC ####[facility] Kzrfyabjnc1248 [place] [address]Dr. Garima Pulliam PROF CHEM 8 (BAS METB)on Anion gap [Moles/Vol] 12.1 mmol/L Normal Th [facility] Comment on above: Performed By: #### B MP ####[facility] Phkhahjfrl1208 [place] [id number]. Garima Pulliam Calcium [Mass/Vol] 8.7 mg/dL Normal 8.5-10.1 [facility] Comment on above: Performed By: #### B MP ####[facility] Aqjcwkldig3872 [place] [id number]. Garima Pulliam Chloride [Moles/Vol] 105 mmol/L Normal 98-107 [facility] Comment on above: Performed By: #### B MP ####[facility] Estficvuog4546 [place] [id number]. Garima Pulliam CO2 [Moles/Vol] 25.5 mmol/L Normal 21.0-32.0 [facility] Comment on above: Performed By: #### B MP ####[facility] Elsdawvhds7703 [place] [address]Dr. Garima Pulliam Creatinine [Mass/Vol] 0.63 mg/dL Critically low 0.70-1.30 [facility] Comment on above: Performed By: #### B MP ####[facility] Yihzcmwxtx7980 [place] [address]Dr. Garima Pulliam EGFR-AF TONGAN >60 Normal >=60 [facility] Comment on above: Performed By: #### B MP ####[facility] Zirhrjuvri0751 [place] [address]Dr. Garima Pulliam EGFR-NON AF TONGAN >60 Normal >=60 [facility] Comment on above: Performed By: #### B MP ####[facility] Qeuaxweyhl5465 [place] [address]Dr. Garima Pulliam Glucose [Mass/Vol] 162 mg/dL Critically high 74-106 [facility] Comment on above: Performed By: #### B MP ####[facility] Fjrmiporyv[address] [place], [place] [address]Dr. Garima Pulliam Potassium [Moles/Vol] 3.6 mmol/L Normal 3.5-5.1 [facility] Comment on above: Performed By: #### B MP ####[facility] Qdixnjebht[address] [place], [place] [address]Dr. Garima Pulliam Sodium [Moles/Vol] 139 mmol/L Normal 136-145 [facility] Comment on above: Performed By: #### B DAVID ####[facility] Xhhpxyugou0845 [place] [address]Dr. Garima Pulliam Urea nitrogen [Mass/Vol] 9.0 mg/dL Normal 7.0-18.0 [facility] Comment on above: Performed By: #### B DAVID ####[facility] Ckmoxixdfx0377 [place] [address]Dr. Garima Pulliam Urea nitrogen/Creatinine [Mass ratio] 14.3 mg/mg Normal [facility] Comment on above: Performed By: #### B DAVID ####[facility] Xlbqucpddj8335 [place] [address]Dr. Chapisrenu Pulliam CARDIAC NASH ADMITon 09-12- 022 CK [Catalytic activity/Vol] 304 U/L Normal 39-308 [facility] Comment on above: Performed By: #### B NANCY HERNANDEZ ####[facility] [address] [place] [address]Dr. Garima Pulliam CK.MB [Mass/Vol] 11.81 ng/mL Critically high <=3.60 [facility] Comment on above: Performed By: #### B NANCY HERNANDEZ ####[facility] [address] [place] [address]Dr. Garima Heraclio HSTROP 13.3 pg/mL Normal 4.0-76.1 [facility] Comment on above: Result Comment: CUT- OFF POINTS HAVE BEEN ESTABLISHED BASED ON THE FOURTH UNIVERSAL DEFINITIONS OF MYOCARDIALINFARCTION. THE UPPER REFERENCE LIMIT (URL) OF TROPONIN, DEFINED THE 99TH PERCENTILE OFcTnI DISTRIBUTION IN A REFERENCE POPULATION, HAS BEEN CONFIRMED THE DECISION THRESHOLDFOR WA DIAGNOSIS. Performed By: #### B NANCY HERNANDEZ ####[facility] [address] [place] [address]Dr. Garima Pulliam DORIS 133 ng/mL Critically high 16-96 [facility] Comment on above: Performed By: #### B NANCY HERNANDEZ ####[facility] [address] [place] [address]Dr. Garima Pulliam CBC AUTO DIFFon 09-12-2022 BASO # 0.0 103/ul Normal 0.0-0.1 [facility] Comment on above: Performed By: #### C BC ####[facility] [address] [place], [place] [id number]. Garima Heraclio Basophils/100 WBC (Bld) 0.2 % Normal 0.2-2.0 [facility] Comment on above: Performed By: #### C BC ####[facility] [address] [place], [place] [address]Dr. Garima Heraclio EO # 0.2 103/ul Normal 0.0-0.7 [facility] Comment on above: Performed By: #### C BC ####[facility] H[address]vd[address] [place], [place] [address]Dr. Chapisrenu Pulliam Eosinophils/100 WBC (Bld) 1.3 % Normal 0.9-7.0 [facility] Comment on above: Performed By: #### C BC ####[facility] Xs[address]sf[address] [place], [place] [address]Dr. Garima Pulliam Erythrocyte distribution width (RBC) [Ratio] 13.7 % Normal 11.0-15.0 [facility] Comment on above: Performed By: #### C BC ####[facility] [address] [place], [place] [address]Dr. Garima Pulliam Hematocrit (Bld) [Volume fraction] 46.4 % Normal 42.0-54.0 [facility] Comment on above: Performed By: #### C BC ####[facility] Endwmrexpx[address] [place], [place] [address]Dr. Garima Pulliam Hemoglobin (Bld) [Mass/Vol] 15.7 g/dL Normal 14.0-18.0 [facility] Comment on above: Performed By: #### C BC ####[facility] [address] [place], [place] [address]Dr. Garima Pulliam IG # 0.04 10e3/ul Critically high 0.00-0.03 [facility] Comment on above: Performed By: #### C BC ####[facility] [address] [place] [id number]. Garima Pulliam IG % 0.3 % Normal 0.0-0.5 [facility] Comment on above: Performed By: #### C BC ####[facility] [address] [place] [id number]. Garima Pulliam LYMPH # 1.7 103/ul Normal 1.2-3.8 [facility] Comment on above: Performed By: #### C BC ####[facility] [address] [place] [id number]. Garima Pulliam Lymphocytes/100 WBC (Bld) 11.5 % Critically low 20.5-60.0 [facility] Comment on above: Performed By: #### C BC ####[facility] [address]ds[address] [place] [id number]. Garima Pulliam MANUAL DIFF REQ NO Normal [facility] Comment on above: Performed By: #### C BC ####[facility] M[address]vgabdb[address] [place] [id number]. Garima Pulliam MCH (RBC) [Entitic mass] 31.0 pg Normal 25.9-34.0 [facility] Comment on above: Performed By: #### C BC ####[facility] [address]cbd[address] [place] [id number]. Garima Pulliam MCHC (RBC) [Mass/Vol] 33.8 g/dL Normal 29.9-35.2 [facility] Comment on above: Performed By: #### C BC ####[facility] [address] [place] [id number]. Garima Pulliam MCV (RBC) [Entitic vol] 91.7 fL Normal 80.0-94.0 [facility] Comment on above: Performed By: #### C BC ####[facility] [address]zy[address]voq[address] [place] [id number]. Garima Heraclio MONO # 0.8 103/ul Normal 0.3-0.8 [facility] Comment on above: Performed By: #### C BC ####[facility] A[address]mr[address] [place] [id number]. Garima Pulliam Monocytes/100 WBC (Bld) 5.2 % Normal 1.7-12.0 [facility] Comment on above: Performed By: #### C BC ####[facility] Ygasparn[address] [place] [id number]. Garima Pulliam NEUT # 11.7 103/ul Critically high 1.4-6.5 [facility] Comment on above: Performed By: #### C BC ####[facility] Q[address]ofqju[address] [place] [id number]. Garima Pulliam Neutrophils/100 WBC (Bld) 81.5 % Critically high 43.0-75.0 [facility] Comment on above: Performed By: #### C BC ####[facility] [address] [place] [address]Dr. Garima Pulliam Platelet mean volume (Bld) [Entitic vol] 8.6 fL Critically low 9.5-13.5 [facility] Comment on above: Performed By: #### C BC ####[facility] [address]ewla[address] [place] [id number]. Garima Pulliam PLT 191 103/ul Normal 150-450 [facility] Comment on above: Performed By: #### C BC ####[facility] Un[address]ln[address] [place], [place] [address]Dr. Garima Pulliam RBC 5.06 106/ul Normal 4.70-6.10 [facility] Comment on above: Performed By: #### C BC ####[facility] [address] [place], [place] [address]Dr. Garima Pulliam WBC 14.4 103/ul Critically high 4.0-11.0 [facility] Comment on above: Performed By: #### C BC ####[facility] [address] [place], [place] [address]Dr. Garima Pulliam [facility]on [facility]24 SARS-CoV-2 (COVID-19) RNA MARIE+probe Ql (Unsp spec) Not detected Normal NOT DETECTED [facility] Comment on above: Result Comment: When [...] for this test is supported by the [employer] of Health and Human Service's declaration [...] used). Performed By: #### C VDTBH ####[facility] W[address]qubizms[address] [place], [place] [address]Dr. Garima Pulliam LACTATE/LACTIC ACIDon 2021 Lactate [Moles/Vol] 1.0 mmol/L Normal 0.4-1.9 [facility] Comment on above: Performed By: #### L ACT ####[facility] [address] [place], [place] [address]Dr. Garima Pulliam PROF CHEM 8 (BAS METB)on Anion gap [Moles/Vol] 11.6 mmol/L Normal [facility] Comment on above: Performed By: #### B NANCY HERNANDEZ ####[facility] [address] [place] [address]Dr. Garima Pulliam Calcium [Mass/Vol] 9.2 mg/dL Normal 8.5-10.1 [facility] Comment on above: Performed By: #### B NANCY HERNANDEZ ####[facility] [address]fmp[address] [place] [address]Dr. Garima Pulliam Chloride [Moles/Vol] 105 mmol/L Normal 98-107 [facility] Comment on above: Performed By: #### B MP, CMADM ####[facility] [address]rs[address]uxmv[address] [place] [id number]. Garima Pulliam CO2 [Moles/Vol] 25.9 mmol/L Normal 21.0-32.0 [facility] Comment on above: Performed By: #### B DAVID, CMADM ####[facility] [address] [place] [address]Dr. Garima Pulliam Creatinine [Mass/Vol] 0.72 mg/dL Normal 0.70-1.30 [facility] Comment on above: Performed By: #### B DAVID, CMADM ####[facility] [address] [place] [id number]. Garima Pulliam EGFR-AF TONGAN >60 Normal >=60 [facility] Comment on above: Performed By: #### B DAVID, CMADM ####[facility] [address] [place] [address]Dr. Chapisrenu Pulliam EGFR-NON AF TONGAN >60 Normal >=60 [facility] Comment on above: Performed By: #### B DAVID, CMAANA ROSA ####[facility] [address] [place] [address]Dr. Garima Pulliam Glucose [Mass/Vol] 111 mg/dL Critically high 74-106 [facility] Comment on above: Performed By: #### B DAVID, CMADM ####[facility] [address]xfc[address] [place] [address]Dr. Chapisrenu Pulliam Potassium [Moles/Vol] 3.5 mmol/L Normal 3.5-5.1 [facility] Comment on above: Performed By: #### B DAVID, CMADM ####[facility] [address]zt[address] [place] [address]Dr. Chapisrenu Pulliam Sodium [Moles/Vol] 139 mmol/L Normal 136-145 [facility] Comment on above: Performed By: #### B DAVID, CMADM ####[facility] W[address]qj[address] [place] [address]Dr. Garima Pulliam Urea nitrogen [Mass/Vol] 7.0 mg/dL Normal 7.0-18.0 [facility] Comment on above: Performed By: #### B DAVID, CMADM ####[facility] [address] [place], [place] [address]r. Garima Pulliam Urea nitrogen/Creatinine [Mass ratio] 9.7 mg/mg Normal [facility] Comment on above: Performed By: #### B MP, CMADM ####[facility] [address] [place], [place] [address]Ky. Garima Pulliam XR CHEST 1 Von 09-12-2022 XR CHEST 1 V Normal [facility] Encounters Encounter Date Encounter Type Care [...] Facility:[facility] Start: 09-15-2022 End: 09-16-[address] ANSH STEVENS Facility:[facility] Start: 09-13-2022 End: 09-13-[address] SEBAS CABALLERO . Facility:[facility] Payers Date Payer Category Payer Unknown [id number] 1960 Medicaid [id number] 1960 Unknown [id number] 1960 Unknown [id number] 1955 Unknown [id number] 2.16.84 0.1.129293.3.579.2.593 1954 Unknown [id number] 2.16.84 0.1.561189.3.579.2.593 1954 Unknown [id number] 2.16.84 0.1.959239.3.579.2.593 1954 Unknown [id number] 2.16.84 0.1.774770.3.579.2.593 1954 Unknown [id number] 2.16.84 0.1.479965.3.579.2.593 1954 Unknown [id number] 2.16.84 0.1.336876.3.579.2.593 1954 Unknown [id number] 2.16.84 0.1.397677.3.579.2.593 1954 Unknown [id number] 2.16.84 0.1.926671.3.579.2.593 1954 Unknown [id number] 2.16.84 0.1.027164.3.579.2.593 1954 Unknown [id number] 2.16.84 0.1.021672.3.579.2.593 1954 Unknown [id number] 2.16.84 0.1.994615.3.579.2.593 1954 Unknown [id number] 2.16.84 0.1.808031.3.579.2.593 1954 Unknown [id number] 2.16.84 0.1.194438.3.579.2.593 1954 Unknown [id number] 2.16.84 0.1.356374.3.579.2.593 1954 Unknown [id number] 2.16.84 0.1.504803.3.579.2.593 1954 Unknown [id number] 2.16.84 0.1.971459.3.579.2.593 1954 Unknown [id number] 2.16.84 0.1.644728.3.579.2.593 1954 Unknown [id number] 2.16.84 0.1.068625.3.579.2.593 1954 Unknown [id number] 2.16.84 0.1.165308.3.579.2.593 1954 Unknown [id number] 2.16.84 0.1.098465.3.579.2.593 Summary Purpose Family History No Family History Records Found Advance Directives No Advanced Directives Records Found Additional Source Comments (unrecognized sect ion and content) No Status Records Found INFORMATION SOURCE (unrecogn ized section and content) DATE CREATED AUTHOR 04/08/2023 [facility] FOR RECORDS PERTAINING TO PATIENTS WHO [...] THE PRIMARY CLINICAL RECORDS. [facility] [employer] [facility]. provides no warranty or guarantee of the accuracy or completeness of information in this document.
--- NOTE | 2024-12-28 18:29 | CT_ITS ---
The [address] [address] Patient Name: CONSTANZA BARRETO MRN: [id number] date: 1955 Sex: M Assigned Patient Location: ER Current Patient Location: ER Accession/Order Number: [id number] Exam Date: 12/28/2024 20:20 Report Date: 12/28/2024 21:19 At the request of: DOMINGUEZ CURTIS Procedure: CT abdomen pelvis w con EXAM: CT abdomen pelvis w con REASON FOR EXAM: Male, 69 years, L side abd pain. TECHNIQUE: Computed tomography of the abdomen and pelvis is performed in the axial projection from the lung bases to the pubic symphysis. Sagittal and coronal reconstructed images are performed. Dose reduction techniques were achieved by using automated exposure control and/or adjustment of mA and/or KVP according to patient size and/or use of iterative reconstruction technique. A total of 100 mL Omnipaque 300 IV contrast was given. Study was performed without oral contrast. COMPARISON: 11/11/2024 FINDINGS: Lung bases: The lung bases are clear. There is no pleural effusion. Coronary artery calcifications are partially imaged. Liver: There is mild intrahepatic ductal dilation, similar to the prior study. Gallbladder: The gallbladder is contracted. Spleen: Tiny calcified splenic granulomas are present. Pancreas: There are extensive pancreatic parenchymal calcifications consistent with prior/chronic pancreatitis. Adrenal glands: Similar appearance to both adrenal glands, with bilateral adrenal nodules. Right kidney: The kidney is normal in size. Cyst is seen at the superior pole. Nonobstructing calculi are noted throughout the right kidney, similar to the prior study. Left kidney: The kidney is normal in size. Cyst at the inferior pole is unchanged. Prominent calcification within the lower pole the left kidney is unchanged from the prior study. No hydronephrosis. Stomach: The stomach is under distended, limiting evaluation for wall abnormalities. Small bowel: There is mild to moderate fluid distention of small bowel loops throughout the abdomen, which may represent ileus/enteritis. No transition point is seen to suggest high-grade obstruction. There is however some swirling of the mesenteric vessels in the right lower quadrant, question internal hernia. Large bowel: The colon is normal. Appendix: The appendix is not visualized. No right lower quadrant inflammatory changes are seen to suggest acute appendicitis. Aorta: There are diffuse atherosclerotic calcifications of the abdominal aorta. IVC: The IVC is normal. Retroperitoneum: Normal retroperitoneum. Bladder: The bladder is normal. Pelvic organs: There appears to have been a TURP procedure. Abdominal wall: Normal abdominal wall. Osseous structures: There are degenerative changes throughout the spine. CT/CT abdomen pelvis w con IMPRESSION: Nonspecific mild to moderate fluid distention of small bowel loops throughout the abdomen, without definite transition point to suggest high-grade obstruction. This could represent ileus/enteritis. There does however appear to be some swirling of the mesenteric vessels within the right lower abdomen, question internal hernia. Extensive pancreatic calcification suggesting prior/chronic pancreatitis. Bilateral renal calculi, without hydronephrosis or ureteral calculus. Additional nonacute findings, as described above. Electronically authenticated by: NUNU MUNOZ Date: 12/28/2024 21:19
--- NOTE | 2024-12-28 18:34 | ED.ABDPAIN1 ---
HPI - Abdominal Pain General Chief Complaint: Abdominal Pain Stated Complaint: Abdominal Pain Shortness of Breath Time Seen by Provider: 12/28/24 18:19 Source: patient Mode of arrival: Wheelchair Limitations: physical limitation History of Present Illness HPI narrative: Patient presents to ED complaining of left-sided abdominal pain. Patient states it started today. He does not have any history of diverticulitis or diverticulosis that he is aware of. He has never had abdominal surgery in the past. He said the pain started on as a gradual pain and has worsened throughout the day. He said it did not start suddenly and has not been sharp or stabbing. He also has COPD and emphysema and usually comes in with respiratory difficulty however today he is having abdominal pain. He did request a breathing treatment while he is here. He denies any constipation or diarrhea. No difficulties urinating. He denies any flank pain or nausea vomiting. Related Data Home Medications ?Medication ?Instructions ?Recorded ?Confirmed albuterol sulfate 90 mcg/actuation 2 inh inhalation Q6H PRN shortness 03/13/24 12/28/24 aerosol inhaler of breath or wheezing Previous Rx's ?Medication ?Instructions ?Recorded losartan 100 mg tablet 100 mg PO DAILY #30 tabs 12/27/23 albuterol sulfate 2.5 mg/3 mL 2.5 mg (3 mL) inhalation Q6H PRN 05/26/24 (0.083 %) solution for nebulization shortness of breath or wheezing #90 mL albuterol sulfate 2.5 mg/3 mL 2.5 mg (3 mL) inhalation Q6H PRN 08/07/24 (0.083 %) solution for nebulization shortness of breath or wheezing #90 mL albuterol sulfate 90 mcg/actuation 2 inh inhalation Q4H PRN shortness 08/07/24 aerosol inhaler of breath or wheezing #8.5 grams albuterol sulfate 2.5 mg/3 mL 1.25 mg (1.5 mL) inhalation Q6H 09/04/24 (0.083 %) solution for nebulization PRN bronchospasm #75 mL albuterol sulfate 90 mcg/actuation 2 inh inhalation Q6H PRN shortness 09/04/24 aerosol inhaler of breath or wheezing #6.7 grams albuterol sulfate 2.5 mg/3 mL 2.5 mg (3 mL) inhalation Q6H PRN 09/12/24 (0.083 %) solution for nebulization shortness of breath or wheezing #90 mL prednisone 20 mg tablet See Rx Instructions .Route 09/21/24 .COMPLEX #12 tabs albuterol sulfate 2.5 mg/0.5 mL 2.5 mg (0.5 mL) inhalation Q4H PRN 10/02/24 solution for nebulization shortness of breath or wheezing #30 ea albuterol sulfate 90 mcg/actuation 2 inh inhalation Q4H PRN shortness 10/02/24 aerosol inhaler of breath or wheezing #6.7 grams albuterol sulfate 2.5 mg/3 mL 2.5 mg (3 mL) inhalation Q6H PRN 10/07/24 (0.083 %) solution for nebulization shortness of breath or wheezing #90 mL albuterol sulfate 90 mcg/actuation 2 inh inhalation Q4H PRN shortness 10/07/24 aerosol inhaler of breath or wheezing #8.5 grams hydrocodone 5 mg-acetaminophen 325 1 tab PO Q4H PRN pain #10 tabs 11/11/24 mg tablet ketorolac 10 mg tablet 10 mg PO Q8H PRN pain 1 day #10 11/11/24 tabs metformin 500 mg tablet 500 mg PO BID #30 tabs 11/11/24 ondansetron 4 mg disintegrating 4 mg PO Q4H PRN nausea and 11/11/24 tablet vomiting 3 days #6 tabs tamsulosin 0.4 mg capsule (Flomax) 0.4 mg PO DAILY 7 days #7 caps 11/11/24 tamsulosin 0.4 mg capsule (Flomax) 0.4 mg PO DAILY #14 caps 11/12/24 albuterol sulfate 90 mcg/actuation 1 inh inhalation Q6H PRN shortness 12/10/24 aerosol inhaler of breath or wheezing #8.5 grams ipratropium 0.5 mg-albuterol 3 mg 3 ml inhalation Q4H PRN shortness 12/10/24 (2.5 mg base)/3 mL nebulization of breath #90 mL soln albuterol sulfate 2.5 mg/3 mL 2.5 mg (3 mL) inhalation Q6H PRN 12/24/24 (0.083 %) solution for nebulization shortness of breath or wheezing #90 mL albuterol sulfate 90 mcg/actuation 2 inh inhalation Q4H PRN shortness 12/24/24 aerosol inhaler of breath or wheezing #6.7 grams losartan 100 mg tablet (Cozaar) 100 mg PO DAILY #30 tabs 12/24/24 dicyclomine 10 mg capsule 10 mg PO QID PRN abdominal pain 12/28/24 #20 caps ondansetron 4 mg disintegrating 4 mg PO Q6H PRN nausea and 12/28/24 tablet vomiting #20 tabs Allergies Allergy/AdvReac Type Severity Reaction Status Date / Time No Known Drug Allergies Allergy Verified 11/21/24 19:22 Review of Systems ROS Status of ROS 10 or more systems reviewed and unremarkable except as noted in history and below [facility] Medical History (Updated 12/28/24 @ 21:56 by Diego Lilly MD) Hypokalemia ?E87.6 - Hypokalemia (ICD-10) New onset type 2 diabetes mellitus ?E11.9 - Type 2 diabetes mellitus without complications (ICD-10) Lower extremity edema ?R60.0 - Localized edema (ICD-10) Edema ?R60.9 - Edema, unspecified (ICD-10) Acute hyperglycemia ?R73.9 - Hyperglycemia, unspecified (ICD-10) Tobacco abuse ?Z72.0 - Tobacco use (ICD-10) HTN (hypertension) ?I10 - Essential (primary) hypertension (ICD-10) Community acquired pneumonia ?J18.9 - Pneumonia, unspecified organism (ICD-10) Chronic obstructive pulmonary disease ?J44.9 - Chronic obstructive pulmonary disease, unspecified (ICD-10) Acute exacerbation of chronic obstructive pulmonary disease (COPD) ?J44.1 - Chronic obstructive pulmonary disease with (acute) exacerbation (ICD-10) RLL pneumonia ?J18.9 - Pneumonia, unspecified organism (ICD-10) COPD (chronic obstructive pulmonary disease) ?J44.9 - Chronic obstructive pulmonary disease, unspecified (ICD-10) Surgical History (Updated 01/29/24 @ 06:45 by Latonia Martin RN) Hx of tonsillectomy ?Z90.89 - Acquired absence of other organs (ICD-10) Family History (Updated 12/25/23 @ 21:28 by Kym Ordaz) Mother Family history of cancer Family history of hypertension Father Family history of cancer Social History Within the past year, how often did you have a drink containing alcohol: 4 or more times a week Within the past year, how many standard drinks containing alcohol did you have on a typical day: 3 or 4 Within the past year, how often did you have six or more drinks on one occasion: less than monthly Total score: 3 Score interpretation: A score of 4 or more indicates drinking is likely to affect patient's safety. Smoking status: Current every day smoker Non-prescribed substance use: cannabis (any form) Previous occupational history: retired Highest level of school completed/degree received: high school graduate Are you now , , , , never or living with a partner: In a typical week, how many times do you talk on the telephone with family, friends, or neighbors: twice per week How often do you get together with friends or relatives: once per week How often do you attend islam or shinto services: never Do you belong to any clubs or organizations such as islam groups unions, fra[employer]ASS or athletic groups, or school groups: no Total score: 1 Score interpretation: A score of less than or equal to 1 indicates the most socially isolated. Little interest or pleasure in doing things: not at all Feeling down, depressed, or hopeless: not at all Feel stressed/tense/nervous/anxious/difficulty sleeping: not at all Do you think of yourself as: straight/heterosexual Gender Identity: male Exam Narrative Exam Narrative: Time Seen: [] Vital Signs: [Per nurse's notes.] General: [Alert] Skin: [Warm, dry, no rash.] Head: [Normocephalic, atraumatic.] Neck: [Supple, trachea midline.] Eye: [Pupils are equal, round and reactive to light, extraocular movements are intact, normal conjunctiva.] Ears, nose, mouth and throat: oral mucosa moist. Cardiovascular: [Regular rate and rhythm, no murmur.] Respiratory: [Diminished breath sounds and wheezing bilaterally consistent with his chronic COPD, respirations are non-labored, breath sounds are equal.] Gastrointestinal: [Soft, left-sided abdominal pain with mild guarding mild distention, normal bowel sounds.] MSK: 5 out of 5 muscle strength x 4 extremities no calf pain or edema Psychiatric: [Cooperative, appropriate mood & affect.] Neurological: [Alert and oriented to person, place, time, and situation, no focal neurological deficit observed.] Constitutional Vital Signs, click to edit/add: Last Vital Signs Temp 98.5 F 12/28/24 18:23 Pulse 96 H 12/28/24 20:34 Resp 44 H 12/28/24 20:34 BP 180/90 H 12/28/24 22:17 Pulse Ox 95 12/28/24 19:35 O2 Del Method Room Air 12/28/24 19:35 Course Vital Signs Vital signs: Vital Signs Temperature 98.5 F 12/28/24 18:23 Pulse Rate 85 12/28/24 18:23 Respiratory Rate 22 H 12/28/24 18:23 Blood Pressure 210/110 H 12/28/24 18:23 Pulse Oximetry 96 12/28/24 18:23 Oxygen Delivery Method Room Air 12/28/24 18:23 Temperature 98.5 F 12/28/24 18:23 Pulse Rate 96 H 12/28/24 20:34 Respiratory Rate 44 H 12/28/24 20:34 Blood Pressure 180/90 H 12/28/24 22:17 Pulse Oximetry 95 12/28/24 19:35 Oxygen Delivery Method Room Air 12/28/24 19:35 MDM - Abdominal Pain MDM Narrative Medical decision making narrative: Patient was signed out to Dr. Natalie Rasheed pending results and final disposition planning. Lab Data Labs: Lab Results 12/28/24 12/28/24 Range/Units 18:40 18:50 WBC 8.7 (4.0-11.0) 10^3/uL RBC 4.58 L (4.70-6.10) 10^6/uL Hgb 13.7 L (14.0-18.0) g/dL Hct 40.2 L (42.0-54.0) % MCV 87.8 (80.0-94.0) fL MCH 29.9 (25.9-34.0) pg MCHC 34.1 (29.9-35.2) g/dL RDW 13.4 (11.0-15.0) % Plt Count 217 (150-450) 10^3/uL MPV 9.4 L (9.5-13.5) fL Neut % (Auto) 70.7 (43.0-75.0) % Lymph % (Auto) 20.2 L (20.5-60.0) % Andrews % (Auto) 6.9 (1.7-12.0) % Eos % (Auto) 1.7 (0.9-7.0) % Baso % (Auto) 0.2 (0.2-2.0) % Neut # (Auto) 6.1 (1.4-6.5) 10^3/uL Lymph # (Auto) 1.8 (1.2-3.8) 10^3/uL Andrews # (Auto) 0.6 (0.3-0.8) 10^3/uL Eos # (Auto) 0.2 (0.0-0.7) 10^3/uL Baso # (Auto) 0.0 (0.0-0.1) 10^3/uL Abs Immat Gran (auto) 0.03 (0.00-0.03) 10^3/uL Imm/Tot Granulo (auto) 0.3 (0.0-0.5) % PT 12.4 H (9.0-11.6) sec INR 1.19 Sodium 138 (136-145) mmol/L Potassium 3.5 (3.5-5.1) mmol/L Chloride 99 (98-107) mmol/L Carbon Dioxide 32.0 (21.0-32.0) mmol/L Anion Gap 10.5 BUN 10.0 (7.0-18.0) mg/dL Creatinine 1.09 (0.70-1.30) mg/dL Est GFR ( Amer) >60 (>=60 mL/min/1.73m^2) Est GFR (Non-Af Amer) >60 (>=60 mL/min/1.73m^2) BUN/Creatinine Ratio 9.2 Glucose 388 H (74-106) mg/dL Lactate 1.7 (0.4-2.0) mmol/L Calcium 8.7 (8.5-10.1) mg/dL Total Bilirubin 0.3 (0.2-1.0) mg/dL AST 21 (15-37) U/L ALT 38 (16-63) U/L Alkaline Phosphatase 98 (46-116) U/L Total Protein 5.9 L (6.4-8.2) g/dL Albumin 3.3 L (3.4-5.0) g/dL Globulin 2.6 g/dL Albumin/Globulin Ratio 1.3 Urine Color Lt. yellow (YELLOW) Urine Clarity Clear (CLEAR) Urine pH 6.0 (5.0-9.0) Ur Specific Beatty 1.015 (1.005-1.025) Urine Protein Negative (NEG/TRACE) mg/dL Urine Glucose (UA) >=1000 A (NEGATIVE) mg/dL Urine Ketones Negative (NEGATIVE) mg/dL Urine Occult Blood Negative (NEGATIVE) Urine Nitrite Negative (NEGATIVE) Urine Bilirubin Negative (NEGATIVE) Urine Urobilinogen 0.2 (0.2-1.0) EU/dL Ur Leukocyte Esterase Negative (NEGATIVE) Urine RBC 0-2 (0-2) #/HPF Urine WBC 0-2 A (NONE SEEN) #/HPF Ur Squamous Epith Cells None seen (NONE/RARE) #/LPF Urine Crystals None seen (None Seen) #/HPF Urine Bacteria None seen (NONE SEEN) #/HPF Urine Casts None seen (NONE SEEN) #/LPF Urine Mucus None seen (NONE SEEN) Ur Culture Indicated? No Discharge Plan Discharge Chief Complaint: Abdominal Pain Clinical Impression: Enteritis Patient Disposition: Home, Self-Care Time of Disposition Decision: 21:56 Condition: Good Mode of Transportation: Private Vehicle Prescriptions / Home Meds: New dicyclomine 10 mg capsule 10 mg PO QID PRN (Reason: abdominal pain) Qty: 20 0RF ondansetron 4 mg tablet,disintegrating 4 mg PO Q6H PRN (Reason: nausea and vomiting) Qty: 20 0RF No Action losartan 100 mg tablet 100 mg PO DAILY Qty: 30 11RF albuterol sulfate 90 mcg/actuation HFA aerosol inhaler 2 inh inhalation Q6H PRN (Reason: shortness of breath or wheezing) albuterol sulfate 2.5 mg /3 mL (0.083 %) solution for nebulization 2.5 mg inhalation Q6H PRN (Reason: shortness of breath or wheezing) Qty: 90 0RF albuterol sulfate 2.5 mg /3 mL (0.083 %) solution for nebulization 2.5 mg inhalation Q6H PRN (Reason: shortness of breath or wheezing) Qty: 90 0RF albuterol sulfate 90 mcg/actuation HFA aerosol inhaler 2 inh inhalation Q4H PRN (Reason: shortness of breath or wheezing) Qty: 8.5 0RF albuterol sulfate 2.5 mg /3 mL (0.083 %) solution for nebulization 2.5 mg inhalation Q6H PRN (Reason: shortness of breath or wheezing) Qty: 90 0RF prednisone 20 mg tablet See Rx Instructions .ROUTE .COMPLEX Qty: 12 0RF Rx Instructions: 3 tabs daily for 2 days, then 2 tabs daily for 2 days, then 1 tab daily for 2 days albuterol sulfate 2.5 mg/0.5 mL solution for nebulization 2.5 mg inhalation Q4H PRN (Reason: shortness of breath or wheezing) Qty: 30 2RF albuterol sulfate 90 mcg/actuation HFA aerosol inhaler 2 inh inhalation Q4H PRN (Reason: shortness of breath or wheezing) Qty: 6.7 0RF albuterol sulfate 2.5 mg /3 mL (0.083 %) solution for nebulization 1.25 mg inhalation Q6H PRN (Reason: bronchospasm) Qty: 75 0RF albuterol sulfate 90 mcg/actuation HFA aerosol inhaler 2 inh inhalation Q6H PRN (Reason: shortness of breath or wheezing) Qty: 6.7 0RF albuterol sulfate 90 mcg/actuation HFA aerosol inhaler 2 inh inhalation Q4H PRN (Reason: shortness of breath or wheezing) Qty: 8.5 0RF albuterol sulfate 2.5 mg /3 mL (0.083 %) solution for nebulization 2.5 mg inhalation Q6H PRN (Reason: shortness of breath or wheezing) Qty: 90 0RF hydrocodone-acetaminophen 5-325 mg tablet 1 tab PO Q4H PRN (Reason: pain) Qty: 10 0RF ketorolac 10 mg tablet 10 mg PO Q8H PRN (Reason: pain) 1 Days Qty: 10 0RF tamsulosin [Flomax] 0.4 mg capsule 0.4 mg PO DAILY 7 Days Qty: 7 0RF ondansetron 4 mg tablet,disintegrating 4 mg PO Q4H PRN (Reason: nausea and vomiting) 3 Days Qty: 6 0RF metformin 500 mg tablet 500 mg PO BID Qty: 30 0RF tamsulosin [Flomax] 0.4 mg capsule 0.4 mg PO DAILY Qty: 14 0RF ipratropium-albuterol 0.5 mg-3 mg(2.5 mg base)/3 mL solution for nebulization 3 ml inhalation Q4H PRN (Reason: shortness of breath) Qty: 90 0RF Rx Instructions: until breathing returns to target peak flow/parameters albuterol sulfate 90 mcg/actuation HFA aerosol inhaler 1 inh inhalation Q6H PRN (Reason: shortness of breath or wheezing) Qty: 8.5 0RF albuterol sulfate 90 mcg/actuation HFA aerosol inhaler 2 inh inhalation Q4H PRN (Reason: shortness of breath or wheezing) Qty: 6.7 0RF losartan [Cozaar] 100 mg tablet 100 mg PO DAILY Qty: 30 0RF albuterol sulfate 2.5 mg /3 mL (0.083 %) solution for nebulization 2.5 mg inhalation Q6H PRN (Reason: shortness of breath or wheezing) Qty: 90 1RF Print Language: Barbadian Instructions: Enteritis (ED) Referrals: SERG DUENAS [Primary Care Provider] - 1 week Discharge Date/Time: 12/28/24 22:18
--- NOTE | 2024-12-28 18:36 | ECG_ITS ---
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
[2024-12-28 19:06] LABS: Basophils Percent Auto 0.2 % (0.2-2.0); Eosinophils Absolute Auto 0.2 10^3/uL (0.0-0.7); Eosinophils Percent Auto 1.7 % (0.9-7.0); Hematocrit 40.2 % (42.0-54.0); Hemoglobin 13.7 g/dL (14.0-18.0); Immature Granulocytes Abs Auto 0.03 10^3/uL (0.00-0.03); Immature Granulocytes Pct Auto 0.3 % (0.0-0.5); Lymphocytes Absolute Auto 1.8 10^3/uL (1.2-3.8); Lymphocytes Percent Auto 20.2 % (20.5-60.0); Mean Corpuscular HGB Conc 34.1 g/dL (29.9-35.2); Mean Corpuscular Hemoglobin 29.9 pg (25.9-34.0); Mean Corpuscular Volume 87.8 fL (80.0-94.0); Mean Platelet Volume 9.4 fL (9.5-13.5); Monocytes Absolute Auto 0.6 10^3/uL (0.3-0.8); Monocytes Percent Auto 6.9 % (1.7-12.0); Neutrophils Absolute Auto 6.1 10^3/uL (1.4-6.5); Neutrophils Percent Auto 70.7 % (43.0-75.0); Platelet Count 217 10^3/uL (150-450); Red Blood Count 4.58 10^6/uL (4.70-6.10); Red Cell Distribution Width 13.4 % (11.0-15.0); White Blood Count 8.7 10^3/uL (4.0-11.0)
[2024-12-28 19:08] LABS: Bilirubin Urine NEGATIVE (NEGATIVE); Blood Urine NEGATIVE (NEGATIVE); Clarity Urine CLEAR (CLEAR); Color Urine LT. YELLOW (YELLOW); Glucose Urine UA >=1000 mg/dL (NEGATIVE); Ketones Urine NEGATIVE (NEGATIVE); Leukocyte Esterase Urine NEGATIVE (NEGATIVE); Nitrite Urine NEGATIVE (NEGATIVE); Protein Urine NEGATIVE (NEG/TRACE); Specific Gravity Urine 1.015 (1.005-1.025); Urobilinogen Urine 0.2 EU/dL (0.2-1.0)
[2024-12-28 19:11] LABS: Urine Microscopic Indicated YES
[2024-12-28 19:18] LABS: Bacteria Urine NONE SEEN #/HPF (NONE SEEN); Cast Seen? NONE SEEN #/LPF (NONE SEEN); Crystals Seen? None Seen #/HPF (None Seen); Mucus Urine NONE SEEN (NONE SEEN); RBC Urine 0-2 #/HPF (0-2); Squamous Epithelial Cell Urine NONE SEEN #/LPF (NONE/RARE); Urine Culture Indicated NO; WBC Urine 0-2 #/HPF (NONE SEEN)
[2024-12-28] MEDS: 0.9 % SODIUM CHLORIDE 500 ML IV (19:19)
[2024-12-28] MEDS: HYDRALAZINE HCL 20 MG/ML VIAL 10 MG IVP ×2 (19:20→19:55)
[2024-12-28 19:22] LABS: INR 1.19; Prothrombin Time 12.4 sec (9.0-11.6)
[2024-12-28 19:27] LABS: Lactate/Lactic Acid 1.7 mmol/L (0.4-2.0)
[2024-12-28 19:33] LABS: Alanine Aminotransferase 38 U/L (16-63); Albumin Globulin Ratio 1.3; Albumin Level 3.3 g/dL (3.4-5.0); Alkaline Phosphatase 98 U/L (46-116); Anion Gap 10.5; Aspartate Amino Transferase 21 U/L (15-37); BUN Creatinine Ratio 9.2; Bilirubin Total 0.3 mg/dL (0.2-1.0); Calcium 8.7 mg/dL (8.5-10.1); Chloride 99 mmol/L (98-107); Estimated GFR (African America >60 (>=60 mL/min/1.73m^2); Estimated GFR (Non-African Ame >60 (>=60 mL/min/1.73m^2); Globulin 2.6 g/dL; Glucose 388 mg/dL (74-106); Potassium 3.5 mmol/L (3.5-5.1); Sodium 138 mmol/L (136-145); Total Protein 5.9 g/dL (6.4-8.2)
[2024-12-28] MEDS: IPRATROPIUM/ALBUTEROL SULFATE 3 ML AMPUL.NEB IH (19:35)
--- NOTE | 2024-12-28 21:58 | ED_ITS ---
HPI - Abdominal Pain General Chief Complaint: Abdominal Pain Stated Complaint: Abdominal Pain Shortness of Breath Time Seen by Provider: 12/28/24 18:19 Source: patient Mode of arrival: Wheelchair Limitations: physical limitation History of Present Illness HPI narrative: 69-year-old male presented to the emergency department for abdominal pain and was initially seen by Dr. Tan and signed out to me after discussing the case with her thoroughly. Please see her full history and physical exam. Related Data Home Medications ?Medication ?Instructions ?Recorded ?Confirmed albuterol sulfate 90 mcg/actuation 2 inh inhalation Q6H PRN shortness 03/13/24 12/28/24 aerosol inhaler of breath or wheezing Previous Rx's ?Medication ?Instructions ?Recorded losartan 100 mg tablet 100 mg PO DAILY #30 tabs 12/27/23 albuterol sulfate 2.5 mg/3 mL 2.5 mg (3 mL) inhalation Q6H PRN 05/26/24 (0.083 %) solution for nebulization shortness of breath or wheezing #90 mL albuterol sulfate 2.5 mg/3 mL 2.5 mg (3 mL) inhalation Q6H PRN 08/07/24 (0.083 %) solution for nebulization shortness of breath or wheezing #90 mL albuterol sulfate 90 mcg/actuation 2 inh inhalation Q4H PRN shortness 08/07/24 aerosol inhaler of breath or wheezing #8.5 grams albuterol sulfate 2.5 mg/3 mL 1.25 mg (1.5 mL) inhalation Q6H 09/04/24 (0.083 %) solution for nebulization PRN bronchospasm #75 mL albuterol sulfate 90 mcg/actuation 2 inh inhalation Q6H PRN shortness 09/04/24 aerosol inhaler of breath or wheezing #6.7 grams albuterol sulfate 2.5 mg/3 mL 2.5 mg (3 mL) inhalation Q6H PRN 09/12/24 (0.083 %) solution for nebulization shortness of breath or wheezing #90 mL prednisone 20 mg tablet See Rx Instructions .Route 09/21/24 .COMPLEX #12 tabs albuterol sulfate 2.5 mg/0.5 mL 2.5 mg (0.5 mL) inhalation Q4H PRN 10/02/24 solution for nebulization shortness of breath or wheezing #30 ea albuterol sulfate 90 mcg/actuation 2 inh inhalation Q4H PRN shortness 10/02/24 aerosol inhaler of breath or wheezing #6.7 grams albuterol sulfate 2.5 mg/3 mL 2.5 mg (3 mL) inhalation Q6H PRN 10/07/24 (0.083 %) solution for nebulization shortness of breath or wheezing #90 mL albuterol sulfate 90 mcg/actuation 2 inh inhalation Q4H PRN shortness 10/07/24 aerosol inhaler of breath or wheezing #8.5 grams hydrocodone 5 mg-acetaminophen 325 1 tab PO Q4H PRN pain #10 tabs 11/11/24 mg tablet ketorolac 10 mg tablet 10 mg PO Q8H PRN pain 1 day #10 11/11/24 tabs metformin 500 mg tablet 500 mg PO BID #30 tabs 11/11/24 ondansetron 4 mg disintegrating 4 mg PO Q4H PRN nausea and 11/11/24 tablet vomiting 3 days #6 tabs tamsulosin 0.4 mg capsule (Flomax) 0.4 mg PO DAILY 7 days #7 caps 11/11/24 tamsulosin 0.4 mg capsule (Flomax) 0.4 mg PO DAILY #14 caps 11/12/24 albuterol sulfate 90 mcg/actuation 1 inh inhalation Q6H PRN shortness 12/10/24 aerosol inhaler of breath or wheezing #8.5 grams ipratropium 0.5 mg-albuterol 3 mg 3 ml inhalation Q4H PRN shortness 12/10/24 (2.5 mg base)/3 mL nebulization of breath #90 mL soln albuterol sulfate 2.5 mg/3 mL 2.5 mg (3 mL) inhalation Q6H PRN 12/24/24 (0.083 %) solution for nebulization shortness of breath or wheezing #90 mL albuterol sulfate 90 mcg/actuation 2 inh inhalation Q4H PRN shortness 12/24/24 aerosol inhaler of breath or wheezing #6.7 grams losartan 100 mg tablet (Cozaar) 100 mg PO DAILY #30 tabs 12/24/24 dicyclomine 10 mg capsule 10 mg PO QID PRN abdominal pain 12/28/24 #20 caps ondansetron 4 mg disintegrating 4 mg PO Q6H PRN nausea and 12/28/24 tablet vomiting #20 tabs Allergies Allergy/AdvReac Type Severity Reaction Status Date / Time No Known Drug Allergies Allergy Verified 11/21/24 19:22 [facility] Medical History (Updated 12/28/24 @ 21:56 by Diego Lilly MD) Hypokalemia ?E87.6 - Hypokalemia (ICD-10) New onset type 2 diabetes mellitus ?E11.9 - Type 2 diabetes mellitus without complications (ICD-10) Lower extremity edema ?R60.0 - Localized edema (ICD-10) Edema ?R60.9 - Edema, unspecified (ICD-10) Acute hyperglycemia ?R73.9 - Hyperglycemia, unspecified (ICD-10) Tobacco abuse ?Z72.0 - Tobacco use (ICD-10) HTN (hypertension) ?I10 - Essential (primary) hypertension (ICD-10) Community acquired pneumonia ?J18.9 - Pneumonia, unspecified organism (ICD-10) Chronic obstructive pulmonary disease ?J44.9 - Chronic obstructive pulmonary disease, unspecified (ICD-10) Acute exacerbation of chronic obstructive pulmonary disease (COPD) ?J44.1 - Chronic obstructive pulmonary disease with (acute) exacerbation (ICD-10) RLL pneumonia ?J18.9 - Pneumonia, unspecified organism (ICD-10) COPD (chronic obstructive pulmonary disease) ?J44.9 - Chronic obstructive pulmonary disease, unspecified (ICD-10) Surgical History (Updated 01/29/24 @ 06:45 by Latonia Martin RN) Hx of tonsillectomy ?Z90.89 - Acquired absence of other organs (ICD-10) Family History (Updated 12/25/23 @ 21:28 by Kym Ordaz) Mother Family history of cancer Family history of hypertension Father Family history of cancer Social History Within the past year, how often did you have a drink containing alcohol: 4 or more times a week Within the past year, how many standard drinks containing alcohol did you have on a typical day: 3 or 4 Within the past year, how often did you have six or more drinks on one occasion: less than monthly Total score: 3 Score interpretation: A score of 4 or more indicates drinking is likely to affect patient's safety. Smoking status: Current every day smoker Non-prescribed substance use: cannabis (any form) Previous occupational history: retired Highest level of school completed/degree received: high school graduate Are you now , , , , never or living with a partner: In a typical week, how many times do you talk on the telephone with family, friends, or neighbors: twice per week How often do you get together with friends or relatives: once per week How often do you attend mu-ism or baptist services: never Do you belong to any clubs or organizations such as mu-ism groups unions, [employer] or athletic groups, or school groups: no Total score: 1 Score interpretation: A score of less than or equal to 1 indicates the most socially isolated. Little interest or pleasure in doing things: not at all Feeling down, depressed, or hopeless: not at all Feel stressed/tense/nervous/anxious/difficulty sleeping: not at all Do you think of yourself as: straight/heterosexual Gender Identity: male Exam Constitutional Vital Signs, click to edit/add: Last Vital Signs Temp 98.5 F 12/28/24 18:23 Pulse 88 12/28/24 20:20 Resp 21 H 12/28/24 20:20 BP 197/94 H 12/28/24 20:20 Pulse Ox 95 12/28/24 19:35 O2 Del Method Room Air 12/28/24 19:35 Course Vital Signs Vital signs: Vital Signs Temperature 98.5 F 12/28/24 18:23 Pulse Rate 85 12/28/24 18:23 Respiratory Rate 22 H 12/28/24 18:23 Blood Pressure 210/110 H 12/28/24 18:23 Pulse Oximetry 96 12/28/24 18:23 Oxygen Delivery Method Room Air 12/28/24 18:23 Temperature 98.5 F 12/28/24 18:23 Pulse Rate 88 12/28/24 20:20 Respiratory Rate 21 H 12/28/24 20:20 Blood Pressure 197/94 H 12/28/24 20:20 Pulse Oximetry 95 12/28/24 19:35 Oxygen Delivery Method Room Air 12/28/24 19:35 MDM - Abdominal Pain MDM Narrative Medical decision making narrative: Blood work is nonspecific. Lactic acid level is normal. CT scan suggest enteritis. There was some questionable findings in the right lower quadrant but he has no pain at all in that area, it is only in the left upper quadrant. Examination at 10 PM shows no tenderness at all in the right lower quadrant. He will be given IM Bentyl here and prescribed Bentyl and Zofran. Treatment diagnosis and follow-up were discussed with the patient. Differential Diagnosis Differential diagnosis: Likely abdominal pain, constipation, diverticulitis, gastroenteritis, pancreatitis and small bowel obstruction Lab Data Attestation: I reviewed the patient's lab results. Labs: Lab Results 12/28/24 12/28/24 Range/Units 18:40 18:50 WBC 8.7 (4.0-11.0) 10^3/uL RBC 4.58 L (4.70-6.10) 10^6/uL Hgb 13.7 L (14.0-18.0) g/dL Hct 40.2 L (42.0-54.0) % MCV 87.8 (80.0-94.0) fL MCH 29.9 (25.9-34.0) pg MCHC 34.1 (29.9-35.2) g/dL RDW 13.4 (11.0-15.0) % Plt Count 217 (150-450) 10^3/uL MPV 9.4 L (9.5-13.5) fL Neut % (Auto) 70.7 (43.0-75.0) % Lymph % (Auto) 20.2 L (20.5-60.0) % Bowman % (Auto) 6.9 (1.7-12.0) % Eos % (Auto) 1.7 (0.9-7.0) % Baso % (Auto) 0.2 (0.2-2.0) % Neut # (Auto) 6.1 (1.4-6.5) 10^3/uL Lymph # (Auto) 1.8 (1.2-3.8) 10^3/uL Bowman # (Auto) 0.6 (0.3-0.8) 10^3/uL Eos # (Auto) 0.2 (0.0-0.7) 10^3/uL Baso # (Auto) 0.0 (0.0-0.1) 10^3/uL Abs Immat Gran (auto) 0.03 (0.00-0.03) 10^3/uL Imm/Tot Granulo (auto) 0.3 (0.0-0.5) % PT 12.4 H (9.0-11.6) sec INR 1.19 Sodium 138 (136-145) mmol/L Potassium 3.5 (3.5-5.1) mmol/L Chloride 99 (98-107) mmol/L Carbon Dioxide 32.0 (21.0-32.0) mmol/L Anion Gap 10.5 BUN 10.0 (7.0-18.0) mg/dL Creatinine 1.09 (0.70-1.30) mg/dL Est GFR ( Amer) >60 (>=60 mL/min/1.73m^2) Est GFR (Non-Af Amer) >60 (>=60 mL/min/1.73m^2) BUN/Creatinine Ratio 9.2 Glucose 388 H (74-106) mg/dL Lactate 1.7 (0.4-2.0) mmol/L Calcium 8.7 (8.5-10.1) mg/dL Total Bilirubin 0.3 (0.2-1.0) mg/dL AST 21 (15-37) U/L ALT 38 (16-63) U/L Alkaline Phosphatase 98 (46-116) U/L Total Protein 5.9 L (6.4-8.2) g/dL Albumin 3.3 L (3.4-5.0) g/dL Globulin 2.6 g/dL Albumin/Globulin Ratio 1.3 Urine Color Lt. yellow (YELLOW) Urine Clarity Clear (CLEAR) Urine pH 6.0 (5.0-9.0) Ur Specific Conner 1.015 (1.005-1.025) Urine Protein Negative (NEG/TRACE) mg/dL Urine Glucose (UA) >=1000 A (NEGATIVE) mg/dL Urine Ketones Negative (NEGATIVE) mg/dL Urine Occult Blood Negative (NEGATIVE) Urine Nitrite Negative (NEGATIVE) Urine Bilirubin Negative (NEGATIVE) Urine Urobilinogen 0.2 (0.2-1.0) EU/dL Ur Leukocyte Esterase Negative (NEGATIVE) Urine RBC 0-2 (0-2) #/HPF Urine WBC 0-2 A (NONE SEEN) #/HPF Ur Squamous Epith Cells None seen (NONE/RARE) #/LPF Urine Crystals None seen (None Seen) #/HPF Urine Bacteria None seen (NONE SEEN) #/HPF Urine Casts None seen (NONE SEEN) #/LPF Urine Mucus None seen (NONE SEEN) Ur Culture Indicated? No Imaging Data CT scan - abdomen: Radiologist's impression: ITS Impressions Abdomen/Pelvis CT 12/28/24 18:29 IMPRESSION: Nonspecific mild to moderate fluid distention of small bowel loops throughout the abdomen, without definite transition point to suggest high-grade obstruction. This could represent ileus/enteritis. There does however appear to be some swirling of the mesenteric vessels within the right lower abdomen, question internal hernia. Extensive pancreatic calcification suggesting prior/chronic pancreatitis. Bilateral renal calculi, without hydronephrosis or ureteral calculus. Additional nonacute findings, as described above. Electronically authenticated by: NUNU MUNOZ Date: 12/28/2024 21:19 Discharge Plan Discharge Chief Complaint: Abdominal Pain Clinical Impression: Enteritis Patient Disposition: Home, Self-Care Time of Disposition Decision: 21:56 Condition: Good Mode of Transportation: Private Vehicle Prescriptions / Home Meds: New dicyclomine 10 mg capsule 10 mg PO QID PRN (Reason: abdominal pain) Qty: 20 0RF ondansetron 4 mg tablet,disintegrating 4 mg PO Q6H PRN (Reason: nausea and vomiting) Qty: 20 0RF No Action losartan 100 mg tablet 100 mg PO DAILY Qty: 30 11RF albuterol sulfate 90 mcg/actuation HFA aerosol inhaler 2 inh inhalation Q6H PRN (Reason: shortness of breath or wheezing) albuterol sulfate 2.5 mg /3 mL (0.083 %) solution for nebulization 2.5 mg inhalation Q6H PRN (Reason: shortness of breath or wheezing) Qty: 90 0RF albuterol sulfate 2.5 mg /3 mL (0.083 %) solution for nebulization 2.5 mg inhalation Q6H PRN (Reason: shortness of breath or wheezing) Qty: 90 0RF albuterol sulfate 90 mcg/actuation HFA aerosol inhaler 2 inh inhalation Q4H PRN (Reason: shortness of breath or wheezing) Qty: 8.5 0RF albuterol sulfate 2.5 mg /3 mL (0.083 %) solution for nebulization 2.5 mg inhalation Q6H PRN (Reason: shortness of breath or wheezing) Qty: 90 0RF prednisone 20 mg tablet See Rx Instructions .ROUTE .COMPLEX Qty: 12 0RF Rx Instructions: 3 tabs daily for 2 days, then 2 tabs daily for 2 days, then 1 tab daily for 2 days albuterol sulfate 2.5 mg/0.5 mL solution for nebulization 2.5 mg inhalation Q4H PRN (Reason: shortness of breath or wheezing) Qty: 30 2RF albuterol sulfate 90 mcg/actuation HFA aerosol inhaler 2 inh inhalation Q4H PRN (Reason: shortness of breath or wheezing) Qty: 6.7 0RF albuterol sulfate 2.5 mg /3 mL (0.083 %) solution for nebulization 1.25 mg inhalation Q6H PRN (Reason: bronchospasm) Qty: 75 0RF albuterol sulfate 90 mcg/actuation HFA aerosol inhaler 2 inh inhalation Q6H PRN (Reason: shortness of breath or wheezing) Qty: 6.7 0RF albuterol sulfate 90 mcg/actuation HFA aerosol inhaler 2 inh inhalation Q4H PRN (Reason: shortness of breath or wheezing) Qty: 8.5 0RF albuterol sulfate 2.5 mg /3 mL (0.083 %) solution for nebulization 2.5 mg inhalation Q6H PRN (Reason: shortness of breath or wheezing) Qty: 90 0RF hydrocodone-acetaminophen 5-325 mg tablet 1 tab PO Q4H PRN (Reason: pain) Qty: 10 0RF ketorolac 10 mg tablet 10 mg PO Q8H PRN (Reason: pain) 1 Days Qty: 10 0RF tamsulosin [Flomax] 0.4 mg capsule 0.4 mg PO DAILY 7 Days Qty: 7 0RF ondansetron 4 mg tablet,disintegrating 4 mg PO Q4H PRN (Reason: nausea and vomiting) 3 Days Qty: 6 0RF metformin 500 mg tablet 500 mg PO BID Qty: 30 0RF tamsulosin [Flomax] 0.4 mg capsule 0.4 mg PO DAILY Qty: 14 0RF ipratropium-albuterol 0.5 mg-3 mg(2.5 mg base)/3 mL solution for nebulization 3 ml inhalation Q4H PRN (Reason: shortness of breath) Qty: 90 0RF Rx Instructions: until breathing returns to target peak flow/parameters albuterol sulfate 90 mcg/actuation HFA aerosol inhaler 1 inh inhalation Q6H PRN (Reason: shortness of breath or wheezing) Qty: 8.5 0RF albuterol sulfate 90 mcg/actuation HFA aerosol inhaler 2 inh inhalation Q4H PRN (Reason: shortness of breath or wheezing) Qty: 6.7 0RF losartan [Cozaar] 100 mg tablet 100 mg PO DAILY Qty: 30 0RF albuterol sulfate 2.5 mg /3 mL (0.083 %) solution for nebulization 2.5 mg inhalation Q6H PRN (Reason: shortness of breath or wheezing) Qty: 90 1RF Print Language: Pashto Instructions: Enteritis (ED) Referrals: SERG DUENAS [Primary Care Provider] - 1 week
[2024-12-28] MEDS: DICYCLOMINE HCL 20 MG/2 ML VIAL IM (22:10)
== END 2024-12-28 22:18 | disposition home or self-care (01) ==
PROVIDERS: Emergency Medicine; Emergency Provider Emergency Medicine
DX: K52.9 Noninfective gastroenteritis and colitis, unspecified (principal); R06.02 Shortness of breath; F17.200 Nicotine dependence, unspecified, uncomplicated; J43.9 Emphysema, unspecified
CPT/HCPCS: 36415; 74177; 80053; 81001; 83605; 85025; 85610; 93005; 94640; 96372; 96374; 96376; 99285; J0360; J0500; Q9967

== ENCOUNTER 2025-01-02 08:12 | Emergency (ER) | payer MEDICARE, SELFPAY ==
[2025-01-02 08:19] VITALS: BP 200/100; PULSE 84; TEMP 36.4; O2SAT 95; BMI 23.7
[2025-01-02 08:30] VITALS: O2SAT 94
--- OUTSIDE RECORDS SUMMARY | 2025-01-02 08:33 | XMS_ITS | CCD ---
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 Garima Pulliam Basophils/100 WBC (Bld) 0.3 % Normal 0.2-2.0 [facility] Comment on above: Performed By: #### C BC ####[facility] Xloksatdcy1695 [place] [address]DrAdalberto Pulliam EO # 0.3 103/ul Normal 0.0-0.7 [facility] Comment on above: Performed By: #### C BC ####[facility] [address] [place], [place] [address]Dr. Garima Pulliam Eosinophils/100 WBC (Bld) 2.8 % Normal 0.9-7.0 [facility] Comment on above: Performed By: #### C BC ####[facility] Esmxaqepcj5[address] [place] [address]Dr. Garima Pulliam Erythrocyte distribution width (RBC) [Ratio] 13.4 % Normal 11.0-15.0 [facility] Comment on above: Performed By: #### C BC ####[facility] Avoceltpjg9544 [place] [address]Dr. Garima Pulliam Hematocrit (Bld) [Volume fraction] 45.7 % Normal 42.0-54.0 [facility] Comment on above: Performed By: #### C BC ####[facility] Gctijjhbnr8031 [place] [address]Dr. Garima Pulliam Hemoglobin (Bld) [Mass/Vol] 15.2 g/dL Normal 14.0-18.0 [facility] Comment on above: Performed By: #### C BC ####[facility] Sfsowwdkdi0414 [place] [address]Dr. Garima Pulliam IG # 0.02 10e3/ul Normal 0.00-0.03 [facility] Comment on above: Performed By: #### C BC ####[facility] Uhrqvsntlh1466 [place] [address]Dr. Garima Pulliam IG % 0.2 % Normal 0.0-0.5 [facility] Comment on above: Performed By: #### C BC ####[facility] Ynlhninizt0728 [place] [address]Dr. Garima Pulliam LYMPH # 2.1 103/ul Normal 1.2-3.8 [facility] Comment on above: Performed By: #### C BC ####[facility] Dybofcodwd0650 [place] [address]Dr. Garima Pulliam Lymphocytes/100 WBC (Bld) 23.7 % Normal 20.5-60.0 [facility] Comment on above: Performed By: #### C BC ####[facility] Mxttfuldhz1422 [place] [address]Dr. Garima Heraclio MANUAL DIFF REQ NO Normal [facility] Comment on above: Performed By: #### C BC ####[facility] Aorhwascgh0488 [place] [address]Dr. Garima Pulliam MCH (RBC) [Entitic mass] 30.4 pg Normal 25.9-34.0 [facility] Comment on above: Performed By: #### C BC ####[facility] Awoppmwxhl4283 [place] [address]Dr. Garima Heraclio MCHC (RBC) [Mass/Vol] 33.3 g/dL Normal 29.9-35.2 [facility] Comment on above: Performed By: #### C BC ####[facility] [address]rcrdr[address] [place], [place] [address]Dr. Chapisrenu Pulliam MCV (RBC) [Entitic vol] 91.4 fL Normal 80.0-94.0 [facility] Comment on above: Performed By: #### C BC ####[facility] Wwqhubjlzh4[address] [place], [place] [address]Dr. Garima Heraclio MONO # 0.7 103/ul Normal 0.3-0.8 [facility] Comment on above: Performed By: #### C BC ####[facility] Ulvwkxzrit[address] [place], [place] [address]Dr. Chapisrenu Pulliam Monocytes/100 WBC (Bld) 8.3 % Normal 1.7-12.0 [facility] Comment on above: Performed By: #### C BC ####[facility] Ifrgivcbuv9482 [place] [address]Dr. Chapisrenu Heraclio NEUT # 5.8 103/ul Normal 1.4-6.5 [facility] Comment on above: Performed By: #### C BC ####[facility] Pgvfagybmq[address] [place], [place] [address]Dr. Garima Pulliam Neutrophils/100 WBC (Bld) 64.7 % Normal 43.0-75.0 [facility] Comment on above: Performed By: #### C BC ####[facility] Effhvodqly9693 [place] [address]Dr. Garima Pulliam Platelet mean volume (Bld) [Entitic vol] 8.6 fL Critically low 9.5-13.5 [facility] Comment on above: Performed By: #### C BC ####[facility] Tnhlkeyqmf4787 [place] [address]Dr. Garima Pulliam PLT 230 103/ul Normal 150-450 [facility] Comment on above: Performed By: #### C BC ####[facility] Bibrfgeqfv6417 [place] [address]Dr. Chapisrenu Heraclio RBC 5.00 106/ul Normal 4.70-6.10 [facility] Comment on above: Performed By: #### C BC ####[facility] Wviunoyrul0559 [place] [address]Dr. Garima Heraclio WBC 9.0 103/ul Normal 4.0-11.0 [facility] Comment on above: Performed By: #### C BC ####[facility] Rbqrnenhuz9222 [place] [address]Dr. Garima Pulliam MAGNESIUMon 04-04-2023 Magnesium [Mass/Vol] 1.8 mg/dL Normal 1.8-2.4 [facility] Comment on above: Performed By: #### M G ####[facility] Vyxwgkqbeg1462 [place] [address]Dr. Chapisrenu Pulliam PROF 14(COMP METB)on 023 Albumin [Mass/Vol] 3.8 g/dL Normal 3.4-5.0 [facility] Comment on above: Performed By: #### C MP ####[facility] Rtyluepvst9883 [place] [address]Dr. Garima Pulliam Albumin/Globulin [Mass ratio] 1.2 {ratio} Normal [facility] Comment on above: Performed By: #### C MP ####[facility] Dnshdwdjrp8286 [place] [address]Dr. Garima Heraclio ALP [Catalytic activity/Vol] 84 U/L Normal 46-116 [facility] Comment on above: Performed By: #### C MP ####[facility] Vkxczpdusp0289 [place] [id number]. Garima Pulliam ALT [Catalytic activity/Vol] 31 U/L Normal 16-63 [facility] Comment on above: Performed By: #### C MP ####[facility] Xvfloyzfxv1750 [place] [address]Dr. Garima Pulliam Anion gap [Moles/Vol] 12.2 mmol/L Normal [facility] Comment on above: Performed By: #### C MP ####[facility] Zflmndhuqb6500 [place] [address]Dr. Garima Pulliam AST [Catalytic activity/Vol] 23 U/L Normal 15-37 [facility] Comment on above: Performed By: #### C MP ####[facility] Dwoqu[address]ryj[address] [place], [place] [address]Dr. Garima Pulliam Bilirubin [Mass/Vol] 0.5 mg/dL Normal 0.2-1.0 [facility] Comment on above: Performed By: #### C MP ####[facility] Aawmigilpp8[address] [place], [place] [address]Dr. Garima Pulliam Calcium [Mass/Vol] 9.2 mg/dL Normal 8.5-10.1 [facility] Comment on above: Performed By: #### C MP ####[facility] Ihwnebclwe4[address] [place], [place] [address]Dr. Garima Pulliam Chloride [Moles/Vol] 103 mmol/L Normal 98-107 [facility] Comment on above: Performed By: #### C MP ####[facility] Lhppyqwjxc6239 [place] [address]Dr. Garima Pulliam CO2 [Moles/Vol] 28.5 mmol/L Normal 21.0-32.0 [facility] Comment on above: Performed By: #### C MP ####[facility] Ijzbnokgty7[address] [place], [place] [address]Dr. Garima Pulliam Creatinine [Mass/Vol] 0.74 mg/dL Normal 0.70-1.30 [facility] Comment on above: Performed By: #### C MP ####[facility] Pshtwsemjj3683 [place] [id number]. Garima Pulliam EGFR-AF [place] >60 Normal >=60 [facility] Comment on above: Performed By: #### C MP ####[facility] Ridtnmofsy7679 [place] [address]Dr. Garima Heraclio EGFR-NON AF [place] >60 Normal >=60 [facility] Comment on above: Performed By: #### C MP ####[facility] Wfkpcaoyrj3573 [place] [id number]. Garima Heraclio Globulin (S) [Mass/Vol] 3.1 g/dL Normal [facility] Comment on above: Performed By: #### C MP ####[facility] Exosmlffvg[address] [place], [place] [address]Dr. Garima Heraclio Glucose [Mass/Vol] 93 mg/dL Normal 74-106 [facility] Comment on above: Performed By: #### C MP ####[facility] Yisitexwbd022[address] [place], [place] [address]Dr. Garima Heraclio Potassium [Moles/Vol] 3.7 mmol/L Normal 3.5-5.1 [facility] Comment on above: Performed By: #### C MP ####[facility] Pyyeezflio[address] [place], [place] [address]Dr. Garima Heraclio Protein [Mass/Vol] 6.9 g/dL Normal 6.4-8.2 [facility] Comment on above: Performed By: #### C MP ####[facility] Hwxbsotzox67[address] [place], [place] [address]Dr. Garima Heraclio Sodium [Moles/Vol] 140 mmol/L Normal 136-145 [facility] Comment on above: Performed By: #### C MP ####[facility] Zyhgppbfit0[address] [place], [place] [address]Dr. Garima Pulliam Urea nitrogen [Mass/Vol] 8.0 mg/dL Normal 7.0-18.0 [facility] Comment on above: Performed By: #### C MP ####[facility] Adrnnnmnec060[address] [place], [place] [address]Dr. Garima Pulliam Urea nitrogen/Creatinine [Mass ratio] 10.8 mg/mg Normal [facility] Comment on above: Performed By: #### C DAVID ####[facility] Lqwlicjkmg0265 [place] [address]Dr. Garima Pulliam AMMONIAon 03-30-2023 Ammonia (P) [Moles/Vol] 11 umol/L Normal 11-32 [facility] Comment on above: Performed By: #### A MM ####[facility] Zxqmzauqop0[address] [place], [place] [address]Dr. Garima Pulliam CARDIAC NASH ADMITon 023 CK [Catalytic activity/Vol] 232 U/L Normal 39-308 [facility] Comment on above: Performed By: #### C NANCY HERNANDEZ ####[facility] Hndlgzywkj6964 [place] [address]Dr. Chapisrenu Pulliam CK.MB [Mass/Vol] 4.83 ng/mL Critically high <=3.60 [facility] Comment on above: Performed By: #### C NANCY HERNANDEZ ####[facility] Cmiypidzwv[address] [place], [place] [address]Dr. Garima Pulliam HSTROP 10.5 pg/mL Normal 4.0-76.1 [facility] Comment on above: Result Comment: CUT- OFF POINTS HAVE BEEN ESTABLISHED BASED ON THE FOURTH UNIVERSAL DEFINITIONS OF MYOCARDIALINFARCTION. THE UPPER REFERENCE LIMIT (URL) OF TROPONIN, DEFINED THE 99TH PERCENTILE OFcTnI DISTRIBUTION IN A REFERENCE POPULATION, HAS BEEN CONFIRMED THE DECISION THRESHOLDFOR [place] DIAGNOSIS. Performed By: #### C NANCY HERNANDEZ ####[facility] Ewmgsfkeuf[address] [place], [place] [address]Dr. Garima Heraclio DORIS 79 ng/mL Normal 16-96 [facility] Comment on above: Performed By: #### C NANCY HERNANDEZ ####[facility] Zdhtkvjrop[address] [place], [place] [address]Dr. Garima Heraclio CBC AUTO DIFFon 03-30-2023 BASO # 0.0 103/ul Normal 0.0-0.1 [facility] Comment on above: Performed By: #### C BC ####[facility] Jepwkbktch[address] [place] [id number]. Garima Pulliam Basophils/100 WBC (Bld) 0.1 % Critically low 0.2-2.0 [facility] Comment on above: Performed By: #### C BC ####[facility] Rdntjjunnx4220 [place] [address]Dr. Garima Pulliam EO # 0.3 103/ul Normal 0.0-0.7 [facility] Comment on above: Performed By: #### C BC ####[facility] [address] [place], [place] [address]Dr. Garima Pulliam Eosinophils/100 WBC (Bld) 3.3 % Normal 0.9-7.0 [facility] Comment on above: Performed By: #### C BC ####[facility] [address]nbvhtvp[address] [place], [place] [address]Dr. Garima Pulliam Erythrocyte distribution width (RBC) [Ratio] 13.5 % Normal 11.0-15.0 [facility] Comment on above: Performed By: #### C BC ####[facility] Ugpgumtkxt[address] [place], [place] [address]Dr. Garima Pulliam Hematocrit (Bld) [Volume fraction] 42.9 % Normal 42.0-54.0 [facility] Comment on above: Performed By: #### C BC ####[facility] Bvyarntfkm[address] [place], [place] [address]Dr. Garima Pulliam Hemoglobin (Bld) [Mass/Vol] 13.9 g/dL Critically low 14.0-18.0 [facility] Comment on above: Performed By: #### C BC ####[facility] Rsfbvfqdwg0810 [place] [id number]. Garima Pulliam IG # 0.01 10e3/ul Normal 0.00-0.03 [facility] Comment on above: Performed By: #### C BC ####[facility] [address] [place], [place] [address]Dr. Garima Pulliam IG % 0.1 % Normal 0.0-0.5 [facility] Comment on above: Performed By: #### C BC ####[facility] Idhvrlmdtm4139 [place] [id number]. Garima Pulliam LYMPH # 1.7 103/ul Normal 1.2-3.8 [facility] Comment on above: Performed By: #### C BC ####[facility] Vrzorlotmz0056 [place], [place] [address]Nz. Garima Pulliam Lymphocytes/100 WBC (Bld) 22.8 % Normal 20.5-60.0 [facility] Comment on above: Performed By: #### C BC ####[facility] Cszzdmwpkc4360 [place] [address]Dr. Garima Heraclio MANUAL DIFF REQ NO Normal [facility] Comment on above: Performed By: #### C BC ####[facility] Rmszrcgbxg9215 [place] [id number]. Garima Heraclio MCH (RBC) [Entitic mass] 30.5 pg Normal 25.9-34.0 [facility] Comment on above: Performed By: #### C BC ####[facility] Gpcafnhdya1020 [place] [address]Dr. Garima Pulliam MCHC (RBC) [Mass/Vol] 32.4 g/dL Normal 29.9-35.2 [facility] Comment on above: Performed By: #### C BC ####[facility] Wianapglll7080 [place] [address]Dr. Garima Heraclio MCV (RBC) [Entitic vol] 94.1 fL Critically high 80.0-94.0 [facility] Comment on above: Performed By: #### C BC ####[facility] Nkvsrwkfay9008 [place] [address]Dr. Garima Heraclio MONO # 0.7 103/ul Normal 0.3-0.8 [facility] Comment on above: Performed By: #### C BC ####[facility] Yyljbrtbjz7927 [place] [address]Dr. Garima Heraclio Monocytes/100 WBC (Bld) 8.6 % Normal 1.7-12.0 [facility] Comment on above: Performed By: #### C BC ####[facility] Ukorymllbv8226 [place] [address]Dr. Garima Pulliam NEUT # 4.9 103/ul Normal 1.4-6.5 [facility] Comment on above: Performed By: #### C BC ####[facility] Ejmxhexnsd7629 [place] [address]Dr. Garima Pulliam Neutrophils/100 WBC (Bld) 65.1 % Normal 43.0-75.0 [facility] Comment on above: Performed By: #### C BC ####[facility] Oiidcodohx9697 [place] [address]Dr. Garima Pulliam Platelet mean volume (Bld) [Entitic vol] 8.5 fL Critically low 9.5-13.5 [facility] Comment on above: Performed By: #### C BC ####[facility] Jnohzeglsr0761 [place] [address]Dr. Garima Pulliam PLT 219 103/ul Normal 150-450 [facility] Comment on above: Performed By: #### C BC ####[facility] Xrftgszccr9570 [place] [address]Dr. Garima Pulliam RBC 4.56 106/ul Critically low 4.70-6.10 [facility] Comment on above: Performed By: #### C BC ####[facility] Gpcttyjjbs1381 [place] [address]Dr. Garima Pulliam WBC 7.6 103/ul Normal 4.0-11.0 [facility] Comment on above: Performed By: #### C BC ####[facility] Iprbadrzci4304 [place] [address]Dr. Garima Pulliam LACTATE/LACTIC ACIDon 2022 Lactate [Moles/Vol] 1.2 mmol/L Normal 0.4-2.0 [facility] Comment on above: Performed By: #### L ACT ####[facility] Susnfiaeej3665 [place] [id number]. Garima Pulliam MAGNESIUMon 03-30-2023 Magnesium [Mass/Vol] 1.8 mg/dL Normal 1.8-2.4 [facility] Comment on above: Performed By: #### M G ####[facility] Sxzolmyaxj6354 [place] [address]Dr. Garima Pulliam PROF 14(COMP METB)on 023 Albumin [Mass/Vol] 3.5 g/dL Normal 3.4-5.0 [facility] Comment on above: Performed By: #### C DAVID, CMAANA ROSA ####[facility] Sxslpndwtl0350 [place] [address]Dr. Garima Pulliam Albumin/Globulin [Mass ratio] 1.2 {ratio} Normal [facility] Comment on above: Performed By: #### C DAVID, CMAANA ROSA ####[facility] Oznbrcwzil8305 [place] [address]Dr. Garima Pulliam ALP [Catalytic activity/Vol] 85 U/L Normal 46-116 [facility] Comment on above: Performed By: #### C DAVID, CMAANA ROSA ####[facility] Ivlwtyfzbe[address] [place], [place] [address]Dr. Garima Pulliam ALT [Catalytic activity/Vol] 29 U/L Normal 16-63 [facility] Comment on above: Performed By: #### C DAVID, CMAANA ROSA ####[facility] Rdfsaooidg2142 [place] [address]Dr. Garima Pulliam Anion gap [Moles/Vol] 8.0 mmol/L Normal [facility] Comment on above: Performed By: #### C DAVID, CMAANA ROSA ####[facility] Qklvpcuxmz6603 [place] [address]Dr. Garima Pulliam AST [Catalytic activity/Vol] 18 U/L Normal 15-37 [facility] Comment on above: Performed By: #### C DAVID, CMADM ####[facility] Bafnqhnhax1566 [place] [address]Dr. Garima Pulliam Bilirubin [Mass/Vol] 0.4 mg/dL Normal 0.2-1.0 [facility] Comment on above: Performed By: #### C DAVID, CMADM ####[facility] Fysdevemio2264 [place] [address]Dr. Garima Pulliam Calcium [Mass/Vol] 8.8 mg/dL Normal 8.5-10.1 [facility] Comment on above: Performed By: #### C DAVID, NANCY ####[facility] Goxdxfpzhv7298 [place] [address]Dr. Chapisrenu Pulliam Chloride [Moles/Vol] 108 mmol/L Critically high 98-107 [facility] Comment on above: Performed By: #### C DAVID, NANCY ####[facility] Vyubsuehcp6125 [place] [address]Dr. Garima Pulliam CO2 [Moles/Vol] 29.6 mmol/L Normal 21.0-32.0 [facility] Comment on above: Performed By: #### C NANCY HERNANDEZ ####[facility] Nrskctdvza[address] [place], [place] [address]Dr. Garima Pulliam Creatinine [Mass/Vol] 0.77 mg/dL Normal 0.70-1.30 [facility] Comment on above: Performed By: #### C NANCY HERNANDEZ ####[facility] Yyuskguuip[address] [place], [place] [address]Dr. Garima Heraclio EGFR-AF [place] >60 Normal >=60 [facility] Comment on above: Performed By: #### C NANCY HERNANDEZ ####[facility] Yqwcjcffnn[address] [place], [place] [address]Dr. Garima Heraclio EGFR-NON AF [place] >60 Normal >=60 [facility] Comment on above: Performed By: #### C NANCY HERNANDEZ ####[facility] Kktlqgpeuo9185 [place] [address]Dr. Garima Pulliam Globulin (S) [Mass/Vol] 2.8 g/dL Normal [facility] Comment on above: Performed By: #### C NANCY HERNANDEZ ####[facility] Qfhsrijdcj6794 [place] [address]Dr. Garima Pulliam Glucose [Mass/Vol] 207 mg/dL Critically high 74-106 [facility] Comment on above: Performed By: #### C NANCY HERNANDEZ ####[facility] Jleenadpda[address] [place], [place] [address]Dr. Garima Pulliam Potassium [Moles/Vol] 4.6 mmol/L Normal 3.5-5.1 [facility] Comment on above: Performed By: #### C DAVID, NANCY ####[facility] Kgzzhazvrj1306 [place] [address]Dr. Garima Pulliam Protein [Mass/Vol] 6.3 g/dL Critically low 6.4-8.2 [facility] Comment on above: Performed By: #### C DAVID, NANCY ####[facility] Ivvrsslwbs8692 [place] [address]Dr. Garima Pulliam Sodium [Moles/Vol] 141 mmol/L Normal 136-145 [facility] Comment on above: Performed By: #### C DAVID, NANCY ####[facility] Cnvdnycggx3052 [place] [address]Dr. Garima Pulliam Urea nitrogen [Mass/Vol] 9.0 mg/dL Normal 7.0-18.0 [facility] Comment on above: Performed By: #### C DAVID, NANCY ####[facility] Jsvnwytqrg9257 [place] [address]Dr. Garima Pulliam Urea nitrogen/Creatinine [Mass ratio] 11.7 mg/mg Normal [facility] Comment on above: Performed By: #### C DAVID, NANCY ####[facility] Yrqflikahp8837 [place] [address]Dr. Garima Pulliam XR CHEST 1 Von 03-30-2023 XR CHEST 1 V Normal [facility] BNPon 03-27-2023 Natriuretic peptide B (Bld) [Mass/Vol] 251.0 pg/mL Normal <=900.0 [facility] Comment on above: Performed By: #### C MP, BNP, LIPID ####[facility] Xambavfjbb3027 [place] [address]Dr. Garima Pulliam GLYCOHEMOGLOBIN A1Con 2022 ADA RECOMMENDATION SEE BELOW Normal [facility] Comment on above: Result Comment: ADA RECOMMENDED LIMIT 4.0 - 6.0 ADA THERAPEUTIC TARGET < 7.0 ACTION SUGGESTED > 7.0 Performed By: #### A 1C ####[facility] Selwaccyxe1692 [place] [address]Dr. Garima Pulliam Glucose [Mass/Vol] 180 mg/dL Normal [facility] Comment on above: Performed By: #### A 1C ####[facility] Iuipyrwzfd[address] [place], [place] [address]Dr. Chapisrenu Pulliam HbA1c (Bld) [Mass fraction] 7.9 % Critically high 4.5-6.2 [facility] Comment on above: Performed By: #### A 1C ####[facility] Wbbgxbsfbk42[address] [place], [place] [address]Dr. Garima Pulliam HEMOGRAM AND PLATELon 2022 Hematocrit (Bld) [Volume fraction] 45.7 % Normal 42.0-54.0 [facility] Comment on above: Performed By: #### H H ####[facility] Ciynnxjjeo64[address] [place], [place] [address]Dr. Garima Pulliam Hemoglobin (Bld) [Mass/Vol] 15.1 g/dL Normal 14.0-18.0 [facility] Comment on above: Performed By: #### H H ####[facility] Oydcxbrbez[address] [place], [place] [address]Dr. Garima Pulliam MCH (RBC) [Entitic mass] 30.0 pg Normal 25.9-34.0 [facility] Comment on above: Performed By: #### H H ####[facility] Caksthizee[address] [place], [place] [address]Dr. Garima Pulliam MCHC (RBC) [Mass/Vol] 33.0 g/dL Normal 29.9-35.2 [facility] Comment on above: Performed By: #### H H ####[facility] Gzsknxhhwn[address] [place], [place] [address]Dr. Garima Pulliam MCV (RBC) [Entitic vol] 90.7 fL Normal 80.0-94.0 [facility] Comment on above: Performed By: #### H H ####[facility] Nhpalzvbkf[address] [place], [place] [address]Dr. Garima Pulliam PLT 222 103/ul Normal 150-450 [facility] Comment on above: Performed By: #### H H ####[facility] Pstlfxsbco6792 [place] [id number]. Garima Pulliam RBC 5.04 106/ul Normal 4.70-6.10 [facility] Comment on above: Performed By: #### H H ####[facility] Wakbesplaw1698 [place] [id number]. Garima Pulliam WBC 8.7 103/ul Normal 4.0-11.0 [facility] Comment on above: Performed By: #### H H ####[facility] Fhuxzroprw7774 [place] [id number]. Garima Pulliam LIPID PROFILEon 03-27-2023 CHOL-HDL RATIO NORM SEE BELOW Normal [facility] Comment on above: Result Comment: 3.3 - 4.4 LOW RISK 4.4 - 7.1 AVERAGE RISK 7.1 - 11.0 MODERATE RISK >11.0 HIGH RISK Performed By: #### C MP, BNP, LIPID ####[facility] Gmydtuttnr5268 [place] [address]Dr. Garima Pulliam Cholesterol [Mass/Vol] 113 mg/dL Normal <=200 [facility] Comment on above: Performed By: #### C MP, BNP, LIPID ####[facility] Olmtsbwkax8294 [place] [address]Dr. Garima Pulliam Cholesterol in HDL [Mass/Vol] 51 mg/dL Normal 40-60 [facility] Comment on above: Performed By: #### C MP, BNP, LIPID ####[facility] Zbymjpzfuv2814 [place] [address]Dr. Garima Pulliam Cholesterol in LDL [Mass/Vol] 49.8 mg/dL Normal [facility] Comment on above: Performed By: #### C MP, BNP, LIPID ####[facility] Fijvifutxq1084 [place] [address]Dr. Garima Pulliam Cholesterol.total/Cho lesterol in HDL [Mass ratio] 2.2 {ratio} Normal [facility] Comment on above: Performed By: #### C MP, BNP, LIPID ####[facility] Pdoemwuumw0348 [place] [address]Dr. Garima Pulliam HDL NORMAL > or = 60 mg/dl - LOW CARDIOVASCULAR RISK <40 mg/dl - HIGH CARDIOVASCULAR RISK Normal [facility] Comment on above: Performed By: #### C MP, BNP, LIPID ####[facility] Yneukdvgbj2735 [place] [address]Dr. Garima Pulliam LDL CALC NORMAL SEE BELOW Normal [facility] Comment on above: Result Comment: <100 mg/dl OPTIMAL 100 - 129 mg/dl NEAR OR ABOVE OPTIMAL 130 - 159 mg/dl BORDERLINE HIGH 160 - 189 mg/dl HIGH >190 mg/dl VERY HIGH Performed By: #### C MP, BNP, LIPID ####[facility] Zjvicwpabr8735 [place] [address]Dr. Garima Pulliam Triglyceride [Mass/Vol] 61 mg/dL Normal <=150 [facility] Comment on above: Performed By: #### C MP, BNP, LIPID ####[facility] Xthxtfegpi1591 [place] [address]Dr. Garima Pulliam VLDL CALC 12.2 mg/dL Normal [facility] Comment on above: Performed By: #### C MP, BNP, LIPID ####[facility] Qhpgiihqrq1461 [place] [address]Dr. Garima Pulliam PROF 14(COMP METB)on 023 Albumin [Mass/Vol] 3.5 g/dL Normal 3.4-5.0 [facility] Comment on above: Performed By: #### C MP, BNP, LIPID ####[facility] Tdoajurzfb7834 [place] [address]Dr. Garima Pulliam Albumin/Globulin [Mass ratio] 1.2 {ratio} Normal [facility] Comment on above: Performed By: #### C MP, BNP, LIPID ####[facility] Rfbtnpibmi1395 [place] [address]Dr. Garima Pulliam ALP [Catalytic activity/Vol] 82 U/L Normal 46-116 [facility] Comment on above: Performed By: #### C MP, BNP, LIPID ####[facility] Ansxtueowh5204 [place] [address]Dr. Garima Pulliam ALT [Catalytic activity/Vol] 33 U/L Normal 16-63 [facility] Comment on above: Performed By: #### C MP, BNP, LIPID ####[facility] Rwxpdgjqzu1128 [place] [address]Dr. Garima Pulliam Anion gap [Moles/Vol] 9.9 mmol/L Normal [facility] Comment on above: Performed By: #### C MP, BNP, LIPID ####[facility] Gapdemwntw9931 [place] [address]Dr. Garima Pulliam AST [Catalytic activity/Vol] 24 U/L Normal 15-37 [facility] Comment on above: Performed By: #### C MP, BNP, LIPID ####[facility] Rsvpoafppl0609 [place] [address]Dr. Garima Pulliam Bilirubin [Mass/Vol] 0.6 mg/dL Normal 0.2-1.0 [facility] Comment on above: Performed By: #### C MP, BNP, LIPID ####[facility] Hcltwdzugb5051 [place] [address]Dr. Garima Pulliam Calcium [Mass/Vol] 9.2 mg/dL Normal 8.5-10.1 [facility] Comment on above: Performed By: #### C MP, BNP, LIPID ####[facility] Ynytwegwfg7146 [place] [address]Dr. Garima Pulliam Chloride [Moles/Vol] 106 mmol/L Normal 98-107 [facility] Comment on above: Performed By: #### C MP, BNP, LIPID ####[facility] Qzpkhqzdrq0310 [place] [address]Dr. Garima Pulliam CO2 [Moles/Vol] 32.3 mmol/L Critically high 21.0-32.0 [facility] Comment on above: Performed By: #### C MP, BNP, LIPID ####[facility] Lujlfsibfn2020 [place] [address]Dr. Garima Pulliam Creatinine [Mass/Vol] 0.70 mg/dL Normal 0.70-1.30 [facility] Comment on above: Performed By: #### C MP, BNP, LIPID ####[facility] Qhtlutcjrz6742 [place] [id number]. Garima Pulliam EGFR-AF [place] >60 Normal >=60 [facility] Comment on above: Performed By: #### C MP, BNP, LIPID ####[facility] Hckfmcunkb0410 [place] [id number]. Garima Pulliam EGFR-NON AF [place] >60 Normal >=60 [facility] Comment on above: Performed By: #### C MP, BNP, LIPID ####[facility] Dqgyximpqo7361 [place] [address]Dr. Garima Pulliam Globulin (S) [Mass/Vol] 2.9 g/dL Normal [facility] Comment on above: Performed By: #### C MP, BNP, LIPID ####[facility] Bfoishfqcr1203 [place] [address]Dr. Garima Pulliam Glucose [Mass/Vol] 111 mg/dL Critically high 74-106 [facility] Comment on above: Performed By: #### C MP, BNP, LIPID ####[facility] Kryoqkrqlw9840 [place] [address]Dr. Garima Pulliam Potassium [Moles/Vol] 4.2 mmol/L Normal 3.5-5.1 [facility] Comment on above: Performed By: #### C MP, BNP, LIPID ####[facility] Ufllnixhfg8439 [place] [address]Dr. Garima Pulliam Protein [Mass/Vol] 6.4 g/dL Normal 6.4-8.2 [facility] Comment on above: Performed By: #### C MP, BNP, LIPID ####[facility] Coghdrjxxj3971 [place] [address]Dr. Garima Pulliam Sodium [Moles/Vol] 144 mmol/L Normal 136-145 [facility] Comment on above: Performed By: #### C MP, BNP, LIPID ####[facility] Uuxuistmuz9749 [place] [address]Dr. Garima Pulliam Urea nitrogen [Mass/Vol] 7.0 mg/dL Normal 7.0-18.0 [facility] Comment on above: Performed By: #### C MP, BNP, LIPID ####[facility] Umzefhsilh[address] [place], [place] [address]Dr. Garima Pulliam Urea nitrogen/Creatinine [Mass ratio] 10.0 mg/mg Normal [facility] Comment on above: Performed By: #### C MP, BNP, LIPID ####[facility] Njhxqphwll[address] [place], [place] [address]Dr. Garima Pulliam BNPon 03-22-2023 Natriuretic peptide B (Bld) [Mass/Vol] 103.0 pg/mL Normal <=900.0 [facility] Comment on above: Performed By: #### B BUSINESS STRATEGIST, BMP ####[facility] Wvatqigqzk8[address] [place], [place] [address]Dr. Garima Pulliam CBC AUTO DIFFon 03-22-2023 BASO # 0.0 103/ul Normal 0.0-0.1 [facility] Comment on above: Performed By: #### C BC ####[facility] Ziufnnfovj[address] [place], [place] [address]Dr. Garima Heraclio Basophils/100 WBC (Bld) 0.3 % Normal 0.2-2.0 [facility] Comment on above: Performed By: #### C BC ####[facility] Eoqmuisove6[address] [place], [place] [address]Dr. Garima Pulliam EO # 0.2 103/ul Normal 0.0-0.7 [facility] Comment on above: Performed By: #### C BC ####[facility] Etezdrfxvh177[address] [place], [place] [address]Dr. Garima Pulliam Eosinophils/100 WBC (Bld) 2.2 % Normal 0.9-7.0 [facility] Comment on above: Performed By: #### C BC ####[facility] Luhzwopygd8[address] [place], [place] [address]Dr. Garima Pulliam Erythrocyte distribution width (RBC) [Ratio] 13.2 % Normal 11.0-15.0 [facility] Comment on above: Performed By: #### C BC ####[facility] Gddrvkqirp4337 [place] [id number]. Garima Pulliam Hematocrit (Bld) [Volume fraction] 43.4 % Normal 42.0-54.0 [facility] Comment on above: Performed By: #### C BC ####[facility] Aerjexxmzg2129 [place] [address]Dr. Garima Heraclio Hemoglobin (Bld) [Mass/Vol] 14.3 g/dL Normal 14.0-18.0 [facility] Comment on above: Performed By: #### C BC ####[facility] Kqvxnswmva1599 [place] [address]Dr. Garima Pulliam IG # 0.02 10e3/ul Normal 0.00-0.03 [facility] Comment on above: Performed By: #### C BC ####[facility] Figfimdlbs7800 [place] [address]Dr. Garima Pulliam IG % 0.3 % Normal 0.0-0.5 [facility] Comment on above: Performed By: #### C BC ####[facility] Dtsaljgxwc3130 [place] [address]Dr. Chapisrenu Pulliam LYMPH # 2.0 103/ul Normal 1.2-3.8 [facility] Comment on above: Performed By: #### C BC ####[facility] Iprloconmt7049 [place] [address]Dr. Chapisrenu Pulliam Lymphocytes/100 WBC (Bld) 24.8 % Normal 20.5-60.0 [facility] Comment on above: Performed By: #### C BC ####[facility] Taahiafumv3433 [place] [address]Dr. Chapisrenu Pulliam MANUAL DIFF REQ NO Normal [facility] Comment on above: Performed By: #### C BC ####[facility] Hcybpresuj3783 [place] [address]Dr. Garima Heraclio MCH (RBC) [Entitic mass] 30.0 pg Normal 25.9-34.0 [facility] Comment on above: Performed By: #### C BC ####[facility] Fjomyleake77[address] [place], [place] [address]Dr. Garima Pulliam MCHC (RBC) [Mass/Vol] 32.9 g/dL Normal 29.9-35.2 [facility] Comment on above: Performed By: #### C BC ####[facility] Cqbwxuhoqq1531 [place] [id number]. Garima Pulliam MCV (RBC) [Entitic vol] 91.0 fL Normal 80.0-94.0 [facility] Comment on above: Performed By: #### C BC ####[facility] Ovfjmtykst6744 [place] [id number]. Garima Heraclio MONO # 0.8 103/ul Normal 0.3-0.8 [facility] Comment on above: Performed By: #### C BC ####[facility] Mydgtjmrwz4481 [place] [address]Dr. Chapisrenu Pulliam Monocytes/100 WBC (Bld) 9.7 % Normal 1.7-12.0 [facility] Comment on above: Performed By: #### C BC ####[facility] Zcpptetfty0232 [place] [address]Dr. Garima Pulliam NEUT # 4.9 103/ul Normal 1.4-6.5 [facility] Comment on above: Performed By: #### C BC ####[facility] Kphillqqqv4380 [place] [id number]. Garima Heraclio Neutrophils/100 WBC (Bld) 62.7 % Normal 43.0-75.0 [facility] Comment on above: Performed By: #### C BC ####[facility] Sdlxipilbs8288 [place] [id number]. Garima Heraclio Platelet mean volume (Bld) [Entitic vol] 8.8 fL Critically low 9.5-13.5 [facility] Comment on above: Performed By: #### C BC ####[facility] Qplukzwnoh5441 [place] [address]Dr. Garima Heraclio PLT 198 103/ul Normal 150-450 [facility] Comment on above: Performed By: #### C BC ####[facility] Qumlpelxlb4444 [place] [address]Dr. Garima Heraclio RBC 4.77 106/ul Normal 4.70-6.10 [facility] Comment on above: Performed By: #### C BC ####[facility] Osslrbdeyp2700 [place] [id number]. Garima Heraclio WBC 7.9 103/ul Normal 4.0-11.0 [facility] Comment on above: Performed By: #### C BC ####[facility] Bnitznzzds2079 [place] [id number]. Garima Heraclio D-DIMERon 03-22-2023 D-DIMER 0.85 mg/L FEU Critically high <=0.59 [facility] Comment on above: Performed By: #### D DIM ####[facility] Dpkwcgcmhu1571 [place] [address]Dr. Garima Pulliam D-DIMER COMMENTS SEE BELOW Normal [facility] Comment on above: Result Comment: Incr [...] generalized hospitalization. Performed By: #### D DIM ####[facility] Uknwrltnkd6[address] [place], [place] [address]Dr. Garima Pulliam PROF CHEM 8 (BAS METB)on Anion gap [Moles/Vol] 6.9 mmol/L Normal [facility] Comment on above: Performed By: #### B BUSINESS STRATEGIST, BMP ####[facility] Pqjpmrzwoj9778 [place] [address]Dr. Garima Pulliam Calcium [Mass/Vol] 8.9 mg/dL Normal 8.5-10.1 [facility] Comment on above: Performed By: #### B BUSINESS STRATEGIST, BMP ####[facility] Dxdbectdii7145 [place] [address]Dr. Garima Pulliam Chloride [Moles/Vol] 101 mmol/L Normal 98-107 [facility] Comment on above: Performed By: #### B BUSINESS STRATEGIST, BMP ####[facility] Kzdhzmrauj498[address] [place], [place] [address]Dr. Chapisrenu Heraclio CO2 [Moles/Vol] 30.7 mmol/L Normal 21.0-32.0 [facility] Comment on above: Performed By: #### B BUSINESS STRATEGIST, BMP ####[facility] Tobwodzaie245[address] [place], [place] [address]Dr. Garima Pulliam Creatinine [Mass/Vol] 0.82 mg/dL Normal 0.70-1.30 [facility] Comment on above: Performed By: #### B BUSINESS STRATEGIST, BMP ####[facility] Gdhjmlprhn26[address] [place], [place] [address]Dr. Garima Pulliam EGFR-AF [place] >60 Normal >=60 [facility] Comment on above: Performed By: #### B BUSINESS STRATEGIST, BMP ####[facility] Dchqlbpjdl0709[address] [place], [place] [address]Dr. Chapisrenu Heraclio EGFR-NON AF [place] >60 Normal >=60 [facility] Comment on above: Performed By: #### B BUSINESS STRATEGIST, BMP ####[facility] Mhbzhdnovz2389[address] [place], [place] [address]Dr. Garima Pulliam Glucose [Mass/Vol] 339 mg/dL Critically high 74-106 [facility] Comment on above: Performed By: #### B BUSINESS STRATEGIST, BMP ####[facility] Tfxzteinde8967[address] [place], [place] [address]Dr. Garima Pulliam Potassium [Moles/Vol] 3.6 mmol/L Normal 3.5-5.1 [facility] Comment on above: Performed By: #### B BUSINESS STRATEGIST, BMP ####[facility] Qemsmzcahd667[address] [place], [place] [address]Dr. Garima Pulliam Sodium [Moles/Vol] 135 mmol/L Critically low 136-145 [facility] Comment on above: Performed By: #### B BUSINESS STRATEGIST, BMP ####[facility] Mfkvdppgaz8733[address] [place], [place] [address]Dr. Garima Pulliam Urea nitrogen [Mass/Vol] 11.0 mg/dL Normal 7.0-18.0 [facility] Comment on above: Performed By: #### B BUSINESS STRATEGIST, BMP ####[facility] Vvururebkf2979[address] [place], [place] [address]Dr. Garima Pulliam Urea nitrogen/Creatinine [Mass ratio] 13.4 mg/mg Normal [facility] Comment on above: Performed By: #### B BUSINESS STRATEGIST, BMP ####[facility] Tyjpjeuzcl220[address] [place], [place] [address]Dr. Garima Pulliam US VERONICA DOP LEG BILon 023 US VERONICA DOP LEG BENOIT Normal [facility] BNPon 03-18-2023 Natriuretic peptide B (Bld) [Mass/Vol] 226.0 pg/mL Normal <=900.0 [facility] Comment on above: Performed By: #### B BUSINESS STRATEGIST, BMP ####[facility] Ooxawlkhki714[address] [place], [place] [address]Dr. Garima Pulliam CBC AUTO DIFFon 03-18-2023 BASO # 0.0 103/ul Normal 0.0-0.1 [facility] Comment on above: Performed By: #### C BC ####[facility] Bxatopkccw17[address] [place], [place] [address]Dr. Garima Heraclio Basophils/100 WBC (Bld) 0.2 % Normal 0.2-2.0 [facility] Comment on above: Performed By: #### C BC ####[facility] Dtkhmmbbzt392[address] [place], [place] [address]Dr. Garima Pulliam EO # 0.3 103/ul Normal 0.0-0.7 [facility] Comment on above: Performed By: #### C BC ####[facility] Mcuedxxjpe688[address] [place], [place] [address]Dr. Garima Heraclio Eosinophils/100 WBC (Bld) 2.5 % Normal 0.9-7.0 [facility] Comment on above: Performed By: #### C BC ####[facility] Ksnltgtnng6855[address] [place], [place] [address]Dr. Garima Heraclio Erythrocyte distribution width (RBC) [Ratio] 13.2 % Normal 11.0-15.0 [facility] Comment on above: Performed By: #### C BC ####[facility] Ibksuvwupx6260 [place] [address]DrAdalberto Pulliam Hematocrit (Bld) [Volume fraction] 45.8 % Normal 42.0-54.0 [facility] Comment on above: Performed By: #### C BC ####[facility] Ffmoeyfovy0804 [place] [address]DrAdalberto Pulliam Hemoglobin (Bld) [Mass/Vol] 15.3 g/dL Normal 14.0-18.0 [facility] Comment on above: Performed By: #### C BC ####[facility] Uzbfsaqonj7664[address] [place], [place] [address]DrAdalberto Pulliam IG # 0.02 10e3/ul Normal 0.00-0.03 [facility] Comment on above: Performed By: #### C BC ####[facility] Fxpxtxtobs20[address] [place], [place] [address]DrAdalberto Pulliam IG % 0.2 % Normal 0.0-0.5 [facility] Comment on above: Performed By: #### C BC ####[facility] Iyikzwgbyh04[address] [place], [place] [address]DrAdalberto Pulliam LYMPH # 1.8 103/ul Normal 1.2-3.8 [facility] Comment on above: Performed By: #### C BC ####[facility] Ztshhsnbzt45[address] [place], [place] [address]DrAdalberto Pulliam Lymphocytes/100 WBC (Bld) 18.3 % Critically low 20.5-60.0 [facility] Comment on above: Performed By: #### C BC ####[facility] Awvecwudiq913[address] [place], [place] [address]DrAdalberto Pulliam MANUAL DIFF REQ NO Normal [facility] Comment on above: Performed By: #### C BC ####[facility] Kaltngotra5993 [place] [address]DrAdalberto Pulliam MCH (RBC) [Entitic mass] 30.5 pg Normal 25.9-34.0 [facility] Comment on above: Performed By: #### C BC ####[facility] Bihqruyxli1209 [place] [address]DrAdalberto Pulliam MCHC (RBC) [Mass/Vol] 33.4 g/dL Normal 29.9-35.2 [facility] Comment on above: Performed By: #### C BC ####[facility] Pdfkyvqigl3898 [place] [address]DrAdalberto Pulliam MCV (RBC) [Entitic vol] 91.2 fL Normal 80.0-94.0 [facility] Comment on above: Performed By: #### C BC ####[facility] Todgnvbxqr769[address] [place], [place] [address]DrAdalberto Pulliam MONO # 0.8 103/ul Normal 0.3-0.8 [facility] Comment on above: Performed By: #### C BC ####[facility] Syvfznyjkt6025[address] [place], [place] [address]DrAdalberto Pulliam Monocytes/100 WBC (Bld) 7.6 % Normal 1.7-12.0 [facility] Comment on above: Performed By: #### C BC ####[facility] Peeuinwbco8128[address] [place], [place] [address]DrAdalberto Pulliam NEUT # 7.0 103/ul Critically high 1.4-6.5 [facility] Comment on above: Performed By: #### C BC ####[facility] Aceolkbdta4916[address] [place], [place] [address]DrAdalberto Pulliam Neutrophils/100 WBC (Bld) 71.2 % Normal 43.0-75.0 [facility] Comment on above: Performed By: #### C BC ####[facility] Lpgvngjjjq342[address] [place], [place] [address]DrAdalberto Pulliam Platelet mean volume (Bld) [Entitic vol] 8.9 fL Critically low 9.5-13.5 [facility] Comment on above: Performed By: #### C BC ####[facility] Oedmypthix[address] [place], [place] [address]DrAdalberto Pulliam PLT 217 103/ul Normal 150-450 [facility] Comment on above: Performed By: #### C BC ####[facility] Lukrcamixp6156 [place] [address]Dr. Garima Heraclio RBC 5.02 106/ul Normal 4.70-6.10 [facility] Comment on above: Performed By: #### C BC ####[facility] Bwegwvcwbv437[address] [place], [place] [address]Dr. Garima Pulliam WBC 9.8 103/ul Normal 4.0-11.0 [facility] Comment on above: Performed By: #### C BC ####[facility] Fesmujzxpo650[address] [place], [place] [address]Dr. Garima Heraclio CRPon 03-18-2023 CRP 0.1 mg/dL Normal <=1.0 [facility] Comment on above: Performed By: #### C RP ####[facility] Tcmdoieioy119[address] [place], [place] [address]Dr. Garima Heraclio PROF CHEM 8 (BAS METB)on Anion gap [Moles/Vol] 10.4 mmol/L Normal [facility] Comment on above: Performed By: #### B BUSINESS STRATEGIST, BMP ####[facility] Abecucivzk785[address] [place], [place] [address]Dr. Garima Heraclio Calcium [Mass/Vol] 8.8 mg/dL Normal 8.5-10.1 [facility] Comment on above: Performed By: #### B BUSINESS STRATEGIST, BMP ####[facility] Dxnnjqudgd9212[address] [place], [place] [address]Dr. Garima Heraclio Chloride [Moles/Vol] 97 mmol/L Critically low 98-107 [facility] Comment on above: Performed By: #### B BUSINESS STRATEGIST, BMP ####[facility] Lfmjhdgpqk248[address] [place], [place] [address]Dr. Garima Pulliam CO2 [Moles/Vol] 31.2 mmol/L Normal 21.0-32.0 [facility] Comment on above: Performed By: #### B BUSINESS STRATEGIST, BMP ####[facility] Dgrxwnnmrd9730[address] [place], [place] [address]Dr. Garima Pulliam Creatinine [Mass/Vol] 0.91 mg/dL Normal 0.70-1.30 [facility] Comment on above: Performed By: #### B BUSINESS STRATEGIST, BMP ####[facility] Vrvemcbhfg6640 [place] [address]Dr. Garima Pulliam EGFR-AF [place] >60 Normal >=60 [facility] Comment on above: Performed By: #### B BUSINESS STRATEGIST, BMP ####[facility] Zxpiknfvky1490 [place] [id number]. Garima Pulliam EGFR-NON AF [place] >60 Normal >=60 [facility] Comment on above: Performed By: #### B BUSINESS STRATEGIST, BMP ####[facility] Hmrsutmcfb3890 [place] [address]Dr. Garima Pulliam Glucose [Mass/Vol] 315 mg/dL Critically high 74-106 T [facility] Comment on above: Performed By: #### B BUSINESS STRATEGIST, BMP ####[facility] Xuurbvfeij4270 [place] [address]Dr. Garima Pulliam Potassium [Moles/Vol] 3.6 mmol/L Normal 3.5-5.1 [facility] Comment on above: Performed By: #### B BUSINESS STRATEGIST, BMP ####[facility] Pryjucdqvy7935 [place] [address]Dr. Garima Pulliam Sodium [Moles/Vol] 135 mmol/L Critically low 136-145 [facility] Comment on above: Performed By: #### B BUSINESS STRATEGIST, BMP ####[facility] Nkzdwlglhi9227 [place] [address]Dr. Garima Pulliam Urea nitrogen [Mass/Vol] 7.0 mg/dL Normal 7.0-18.0 [facility] Comment on above: Performed By: #### B BUSINESS STRATEGIST, BMP ####[facility] Gjvkffoynd4779 [place] [address]Dr. Garima Pulliam Urea nitrogen/Creatinine [Mass ratio] 7.7 mg/mg Normal [facility] Comment on above: Performed By: #### B BUSINESS STRATEGIST, BMP ####[facility] Phjktgtxzk9060 [place] [address]Dr. Garima Pulliam SED RATE WESTERGRENon 2022 SED RATE 8 mm/hr Normal <=20 [facility] Comment on above: Performed By: #### S EDR ####[facility] Paqzsfodda6[address] [place], [place] [address]Dr. Garima Pulliam BNPon 03-16-2023 Natriuretic peptide B (Bld) [Mass/Vol] 241.0 pg/mL Normal <=900.0 [facility] Comment on above: Performed By: #### B BUSINESS STRATEGIST, BMP, HSTROPN ####[facility] Uibxudbflz38[address] [place], [place] [address]Dr. Garima Heraclio CBC AUTO DIFFon 03-16-2023 BASO # 0.0 103/ul Normal 0.0-0.1 [facility] Comment on above: Performed By: #### C BC ####[facility] Ywqjqkqvcq712[address] [place], [place] [address]Dr. Chapisrenu Pulliam Basophils/100 WBC (Bld) 0.2 % Normal 0.2-2.0 [facility] Comment on above: Performed By: #### C BC ####[facility] Tpuxkiwhwk267[address] [place], [place] [address]Dr. Garima Pulliam EO # 0.2 103/ul Normal 0.0-0.7 [facility] Comment on above: Performed By: #### C BC ####[facility] Hhkploeeny0123[address] [place], [place] [address]Dr. Chapisrenu Pulliam Eosinophils/100 WBC (Bld) 2.7 % Normal 0.9-7.0 [facility] Comment on above: Performed By: #### C BC ####[facility] Qdwebzmtol0248[address] [place], [place] [address]Dr. Garima Pulliam Erythrocyte distribution width (RBC) [Ratio] 13.1 % Normal 11.0-15.0 [facility] Comment on above: Performed By: #### C BC ####[facility] Liwhbgvywd017[address] [place], [place] [address]Dr. Garima Pulliam Hematocrit (Bld) [Volume fraction] 41.8 % Critically low 42.0-54.0 [facility] Comment on above: Performed By: #### C BC ####[facility] Csekpizebe0446 [place] [address]Dr. Garima Pulliam Hemoglobin (Bld) [Mass/Vol] 14.0 g/dL Normal 14.0-18.0 [facility] Comment on above: Performed By: #### C BC ####[facility] Bwwethjzhs4533 [place] [address]Dr. Garima Pulliam IG # 0.03 10e3/ul Normal 0.00-0.03 [facility] Comment on above: Performed By: #### C BC ####[facility] Vxfnouhycy5386 [place] [address]Dr. Garima Pulliam IG % 0.3 % Normal 0.0-0.5 [facility] Comment on above: Performed By: #### C BC ####[facility] Khmidvrkvi75[address] [place], [place] [address]Dr. Chapisrenu Pulliam LYMPH # 2.1 103/ul Normal 1.2-3.8 [facility] Comment on above: Performed By: #### C BC ####[facility] Vnoybjyhsp[address] [place], [place] [address]Dr. Chapisrenu Pulliam Lymphocytes/100 WBC (Bld) 24.2 % Normal 20.5-60.0 [facility] Comment on above: Performed By: #### C BC ####[facility] Xrjrtglseo7374 [place] [address]Dr. Garima Pulliam MANUAL DIFF REQ NO Normal [facility] Comment on above: Performed By: #### C BC ####[facility] Cyorstqogt8342 [place] [address]Dr. Garima Pulliam MCH (RBC) [Entitic mass] 30.2 pg Normal 25.9-34.0 [facility] Comment on above: Performed By: #### C BC ####[facility] Xzwzyxdqxg0668 [place] [address]Dr. Garima Pulliam MCHC (RBC) [Mass/Vol] 33.5 g/dL Normal 29.9-35.2 [facility] Comment on above: Performed By: #### C BC ####[facility] Qwukzympvl1888 [place] [id number]. Garima Pulliam MCV (RBC) [Entitic vol] 90.1 fL Normal 80.0-94.0 [facility] Comment on above: Performed By: #### C BC ####[facility] Wqsqgiwwik8512 [place] [id number]. Garima Pulliam MONO # 0.6 103/ul Normal 0.3-0.8 [facility] Comment on above: Performed By: #### C BC ####[facility] Sdrqmhrwwk7083 [place] [address]Dr. Garima Heraclio Monocytes/100 WBC (Bld) 7.4 % Normal 1.7-12.0 [facility] Comment on above: Performed By: #### C BC ####[facility] Qrmkilqknu478[address] [place], [place] [address]Dr. Garima Pulliam NEUT # 5.6 103/ul Normal 1.4-6.5 [facility] Comment on above: Performed By: #### C BC ####[facility] Rfjqnqyktq9[address] [place], [place] [address]Dr. Garima Heraclio Neutrophils/100 WBC (Bld) 65.2 % Normal 43.0-75.0 [facility] Comment on above: Performed By: #### C BC ####[facility] Rfqljnbmbm1651 [place] [id number]. Garima Heraclio Platelet mean volume (Bld) [Entitic vol] 8.7 fL Critically low 9.5-13.5 [facility] Comment on above: Performed By: #### C BC ####[facility] [address]ansvgouq[address] [place], [place] [address]Dr. Garima Heraclio PLT 195 103/ul Normal 150-450 [facility] Comment on above: Performed By: #### C BC ####[facility] Smrhvhljea8960 [place] [id number]. Garima Pulliam RBC 4.64 106/ul Critically low 4.70-6.10 [facility] Comment on above: Performed By: #### C BC ####[facility] Twzelaiera3122 [place] [address]Dr. Garima Pulliam WBC 8.6 103/ul Normal 4.0-11.0 [facility] Comment on above: Performed By: #### C BC ####[facility] Wirforreun0730 [place] [address]Dr. Garima Pulliam PROF CHEM 8 (BAS METB)on Anion gap [Moles/Vol] 6.7 mmol/L Normal [facility] Comment on above: Performed By: #### B BUSINESS STRATEGIST, BMP, HSTROPN ####[facility] Oxdsrupziv0228 [place] [address]Dr. Garima Pulliam Calcium [Mass/Vol] 8.8 mg/dL Normal 8.5-10.1 [facility] Comment on above: Performed By: #### B BUSINESS STRATEGIST, BMP, HSTROPN ####[facility] Qxbdefsmon[address] [place], [place] [address]Dr. Garima Pulliam Chloride [Moles/Vol] 106 mmol/L Normal 98-107 [facility] Comment on above: Performed By: #### B BUSINESS STRATEGIST, BMP, HSTROPN ####[facility] Hnnupetiqj[address] [place], [place] [address]Dr. Garima Pulliam CO2 [Moles/Vol] 31.4 mmol/L Normal 21.0-32.0 [facility] Comment on above: Performed By: #### B BUSINESS STRATEGIST, BMP, HSTROPN ####[facility] Hejkdpblqi[address] [place], [place] [address]Dr. Garima Pulliam Creatinine [Mass/Vol] 0.75 mg/dL Normal 0.70-1.30 [facility] Comment on above: Performed By: #### B BUSINESS STRATEGIST, BMP, HSTROPN ####[facility] Thrgahgwdd1005 [place] [address]Dr. Garima Pulliam EGFR-AF [place] >60 Normal >=60 [facility] Comment on above: Performed By: #### B BUSINESS STRATEGIST, BMP, HSTROPN ####[facility] Vgxmxmqxer0963 [place] [address]Dr. Garima Pulliam EGFR-NON AF [place] >60 Normal >=60 [facility] Comment on above: Performed By: #### B BUSINESS STRATEGIST, BMP, HSTROPN ####[facility] Usrocintdh6508 [place] [address]Dr. Garima Pulliam Glucose [Mass/Vol] 161 mg/dL Critically high 74-106 T [facility] Comment on above: Performed By: #### B BUSINESS STRATEGIST, BMP, HSTROPN ####[facility] [address] [place] [address]Dr. Garima Pulliam Potassium [Moles/Vol] 4.1 mmol/L Normal 3.5-5.1 [facility] Comment on above: Performed By: #### B BUSINESS STRATEGIST, BMP, HSTROPN ####[facility] [address]mtkywudmy[address] [place] [address]Dr. Garima Pulliam Sodium [Moles/Vol] 140 mmol/L Normal 136-145 [facility] Comment on above: Performed By: #### B BUSINESS STRATEGIST, BMP, HSTROPN ####[facility] Poporzehhn[address] [place] [address]Dr. Garima Pulliam Urea nitrogen [Mass/Vol] 7.0 mg/dL Normal 7.0-18.0 [facility] Comment on above: Performed By: #### B BUSINESS STRATEGIST, BMP, HSTROPN ####[facility] Dpdyochlzy[address] [place] [address]Dr. Garima Pulliam Urea nitrogen/Creatinine [Mass ratio] 9.3 mg/mg Normal [facility] Comment on above: Performed By: #### B BUSINESS STRATEGIST, BMP, HSTROPN ####[facility] Vgzzhculfx[address] [place] [address]Dr. Garima Pulliam TROPONIN, HIGH SENSITIVITYon 03-16-2023 HSTROP 9.7 pg/mL Normal 4.0-76.1 [facility] Comment on above: Result Comment: CUT- OFF POINTS HAVE BEEN ESTABLISHED BASED ON THE FOURTH UNIVERSAL DEFINITIONS OF MYOCARDIALINFARCTION. THE UPPER REFERENCE LIMIT (URL) OF TROPONIN, DEFINED THE 99TH PERCENTILE OFcTnI DISTRIBUTION IN A REFERENCE POPULATION, HAS BEEN CONFIRMED THE DECISION THRESHOLDFOR [place] DIAGNOSIS. Performed By: #### B BUSINESS STRATEGIST, BMP, HSTROPN ####[facility] Ibcyexihfv[address] [place] [address]Dr. Garima Pulliam XR CHEST 1 Von 03-16-2023 XR CHEST 1 V Normal [facility] BNPon 03-06-2023 Natriuretic peptide B (Bld) [Mass/Vol] 111.0 pg/mL Normal <=900.0 [facility] Comment on above: Performed By: #### C MP, BNP, CK ####[facility] Zotfxakegn[address] [place] [address]Dr. Chapisrenu Pulliam CBC AUTO DIFFon 03-06-2023 BASO # 0.0 103/ul Normal 0.0-0.1 [facility] Comment on above: Performed By: #### C BC ####[facility] [address] [place], [place] [address]Dr. Garima Pulliam Basophils/100 WBC (Bld) 0.2 % Normal 0.2-2.0 [facility] Comment on above: Performed By: #### C BC ####[facility] Anvylzayjj[address] [place], [place] [address]Dr. Garima Pulliam EO # 0.3 103/ul Normal 0.0-0.7 [facility] Comment on above: Performed By: #### C BC ####[facility] Qkayiqxilx[address] [place], [place] [address]Dr. Garima Pulliam Eosinophils/100 WBC (Bld) 3.5 % Normal 0.9-7.0 [facility] Comment on above: Performed By: #### C BC ####[facility] Oiiyvhwwpn[address] [place], [place] [address]Dr. Garima Pulliam Erythrocyte distribution width (RBC) [Ratio] 13.3 % Normal 11.0-15.0 [facility] Comment on above: Performed By: #### C BC ####[facility] Oklaujxlwq[address] [place], [place] [address]Dr. Garima Pulliam Hematocrit (Bld) [Volume fraction] 43.7 % Normal 42.0-54.0 [facility] Comment on above: Performed By: #### C BC ####[facility] Zusmybtizi[address] [place] [address]Dr. Garima Pulliam Hemoglobin (Bld) [Mass/Vol] 14.7 g/dL Normal 14.0-18.0 [facility] Comment on above: Performed By: #### C BC ####[facility] Lwrzkgshps[address] [place] [address]Dr. Chapisrenu Heraclio IG # 0.03 10e3/ul Normal 0.00-0.03 [facility] Comment on above: Performed By: #### C BC ####[facility] Jupakbwslc[address] [place], [place] [address]Dr. Garima Pulliam IG % 0.4 % Normal 0.0-0.5 [facility] Comment on above: Performed By: #### C BC ####[facility] Ifgqhintmp[address] [place], [place] [address]Dr. Garima Pulliam LYMPH # 2.0 103/ul Normal 1.2-3.8 [facility] Comment on above: Performed By: #### C BC ####[facility] Cygltyporv[address] [place], [place] [address]DrAdalberto Pulliam Lymphocytes/100 WBC (Bld) 23.7 % Normal 20.5-60.0 [facility] Comment on above: Performed By: #### C BC ####[facility] Wznorjtqbo[address] [place] [address]Dr. Garima Pulliam MANUAL DIFF REQ NO Normal [facility] Comment on above: Performed By: #### C BC ####[facility] L[address]wmptcft[address] [place] [id number] Pulliam MCH (RBC) [Entitic mass] 30.1 pg Normal 25.9-34.0 [facility] Comment on above: Performed By: #### C BC ####[facility] Sfirysxgga69[address] [place] [id number]. Garima Pulliam MCHC (RBC) [Mass/Vol] 33.6 g/dL Normal 29.9-35.2 [facility] Comment on above: Performed By: #### C BC ####[facility] V[address]ahjroir[address] [place] [address]Dr. Garima Heraclio MCV (RBC) [Entitic vol] 89.4 fL Normal 80.0-94.0 [facility] Comment on above: Performed By: #### C BC ####[facility] Oswwrdrjzw8[address] [place] [address]Dr. Garima Pulliam MONO # 0.8 103/ul Normal 0.3-0.8 [facility] Comment on above: Performed By: #### C BC ####[facility] Aqxmiznzcu17[address] [place] [address]Dr. Garima Pulliam Monocytes/100 WBC (Bld) 9.0 % Normal 1.7-12.0 [facility] Comment on above: Performed By: #### C BC ####[facility] Qbdcxrxs[address] [place], [place] [address]Dr. Garima Pulliam NEUT # 5.4 103/ul Normal 1.4-6.5 [facility] Comment on above: Performed By: #### C BC ####[facility] Idyyfwclba[address] [place], [place] [address]Dr. Garima Pulliam Neutrophils/100 WBC (Bld) 63.2 % Normal 43.0-75.0 [facility] Comment on above: Performed By: #### C BC ####[facility] Casxzticuc[address] [place], [place] [address]Dr. Garima Pulliam Platelet mean volume (Bld) [Entitic vol] 9.0 fL Critically low 9.5-13.5 [facility] Comment on above: Performed By: #### C BC ####[facility] Wsbqiwqcdz[address] [place], [place] [address]Dr. Garima Pulliam PLT 218 103/ul Normal 150-450 [facility] Comment on above: Performed By: #### C BC ####[facility] Hyspcglzgg4[address] [place] [id number]. Garima Pulliam RBC 4.89 106/ul Normal 4.70-6.10 [facility] Comment on above: Performed By: #### C BC ####[facility] Rhrgnimknz[address] [place] [address]Dr. Garima Pulliam WBC 8.5 103/ul Normal 4.0-11.0 [facility] Comment on above: Performed By: #### C BC ####[facility] Eihrpgcopd28[address] [place] [address]Dr. Garima Pulliam CPKon 03-06-2023 CK [Catalytic activity/Vol] 191 U/L Normal 39-308 [facility] Comment on above: Performed By: #### C MP, BNP, CK ####[facility] Rjjnpeyqqi8[address] [place] [address]Dr. Garima Pulliam PROF 14(COMP METB)on 023 Albumin [Mass/Vol] 3.6 g/dL Normal 3.4-5.0 [facility] Comment on above: Performed By: #### C MP, BNP, CK ####[facility] Cqyrihftww66[address] [place] [address]Dr. Garima Pulliam Albumin/Globulin [Mass ratio] 1.2 {ratio} Normal [facility] Comment on above: Performed By: #### C MP, BNP, CK ####[facility] Utzybdduqw[address] [place] [address]Dr. Garima Pulliam ALP [Catalytic activity/Vol] 91 U/L Normal 46-116 [facility] Comment on above: Performed By: #### C MP, BNP, CK ####[facility] Zprbfvhhqy2406 [place] [address]Dr. Garima Pulliam ALT [Catalytic activity/Vol] 33 U/L Normal 16-63 [facility] Comment on above: Performed By: #### C MP, BNP, CK ####[facility] Kaycnmtopl55[address] [place] [address]Dr. Garima Pulliam Anion gap [Moles/Vol] 10.3 mmol/L Normal [facility] Comment on above: Performed By: #### C MP, BNP, CK ####[facility] Ufkfhlaxss4[address] [place] [address]Dr. Garima Pulliam AST [Catalytic activity/Vol] 17 U/L Normal 15-37 [facility] Comment on above: Performed By: #### C MP, BNP, CK ####[facility] Osptiqlamc83[address] [place] [address]Dr. Garima Pulliam Bilirubin [Mass/Vol] 0.4 mg/dL Normal 0.2-1.0 [facility] Comment on above: Performed By: #### C MP, BNP, CK ####[facility] Asmnlrutbh7[address] [place] [address]Dr. Garima Pulliam Calcium [Mass/Vol] 9.1 mg/dL Normal 8.5-10.1 [facility] Comment on above: Performed By: #### C MP, BNP, CK ####[facility] Fgbhoujdoy95[address] [place] [address]Dr. Garima Pulliam Chloride [Moles/Vol] 102 mmol/L Normal 98-107 [facility] Comment on above: Performed By: #### C MP, BNP, CK ####[facility] Yuqnnnndig04[address] [place] [address]Dr. Garima Pulliam CO2 [Moles/Vol] 29.7 mmol/L Normal 21.0-32.0 [facility] Comment on above: Performed By: #### C MP, BNP, CK ####[facility] Hqkcbrppbj3[address] [place] [address]Dr. Garima Pulliam Creatinine [Mass/Vol] 0.79 mg/dL Normal 0.70-1.30 [facility] Comment on above: Performed By: #### C MP, BNP, CK ####[facility] Qlluurtfdf1839 [place] [address]Dr. Garima Pulliam EGFR-AF [place] >60 Normal >=60 [facility] Comment on above: Performed By: #### C MP, BNP, CK ####[facility] Auuoxljcdp[address] [place] [address]Dr. Garima Pulliam EGFR-NON AF [place] >60 Normal >=60 [facility] Comment on above: Performed By: #### C MP, BNP, CK ####[facility] Anyszxyhdj4604 [place] [address]Dr. Garima Pulliam Globulin (S) [Mass/Vol] 3.0 g/dL Normal [facility] Comment on above: Performed By: #### C MP, BNP, CK ####[facility] Dstwlrylpa8516 [place] [address]Dr. Garima Pulliam Glucose [Mass/Vol] 202 mg/dL Critically high 74-106 [facility] Comment on above: Performed By: #### C MP, BNP, CK ####[facility] Hwzomrklhn09[address] [place] [address]Dr. Garima Pulliam Potassium [Moles/Vol] 4.0 mmol/L Normal 3.5-5.1 [facility] Comment on above: Performed By: #### C MP, BNP, CK ####[facility] Gfzbuuuarg4471 [place] [address]Dr. Garima Pulliam Protein [Mass/Vol] 6.6 g/dL Normal 6.4-8.2 [facility] Comment on above: Performed By: #### C MP, BNP, CK ####[facility] Hwulcbumih[address] [place], [place] [address]Dr. Garima Pulliam Sodium [Moles/Vol] 138 mmol/L Normal 136-145 [facility] Comment on above: Performed By: #### C MP, BNP, CK ####[facility] Xlvhcvaaxi[address] [place], [place] [address]Dr. Garima Pulliam Urea nitrogen [Mass/Vol] 10.0 mg/dL Normal 7.0-18.0 [facility] Comment on above: Performed By: #### C MP, BNP, CK ####[facility] Igbkxsbrtx9987 [place] [address]Dr. Garima Pulliam Urea nitrogen/Creatinine [Mass ratio] 12.7 mg/mg Normal [facility] Comment on above: Performed By: #### C MP, BNP, CK ####[facility] Sxmjhknmjn6593 [place] [address]Dr. Garima Pulliam US VERONICA DOP LEG BILon 023 US VERONICA DOP LEG BENOIT Normal [facility] CBC AUTO DIFFon 01-13-2023 BASO # 0.0 103/ul Normal 0.0-0.1 [facility] Comment on above: Performed By: #### C BC ####[facility] Essktfywdt50[address] [place] [id number]. Chapisrenu Pulliam Basophils/100 WBC (Bld) 0.0 % Critically low 0.2-2.0 [facility] Comment on above: Performed By: #### C BC ####[facility] Vvojubbfnu040[address] [place] [address]Dr. Garima Pulliam EO # 0.0 103/ul Normal 0.0-0.7 [facility] Comment on above: Performed By: #### C BC ####[facility] Ehyvzieous[address] [place], [place] [address]Dr. Garima Pulliam Eosinophils/100 WBC (Bld) 0.0 % Critically low 0.9-7.0 [facility] Comment on above: Performed By: #### C BC ####[facility] Ycislhaghj4332 [place] [address]Dr. Garima Pulliam Erythrocyte distribution width (RBC) [Ratio] 13.2 % Normal 11.0-15.0 [facility] Comment on above: Performed By: #### C BC ####[facility] Zbenffetip[address] [place], [place] [address]Dr. Garima Pulliam Hematocrit (Bld) [Volume fraction] 46.7 % Normal 42.0-54.0 [facility] Comment on above: Performed By: #### C BC ####[facility] Xlyyzzvnfj[address] [place], [place] [address]Dr. Garima Pulliam Hemoglobin (Bld) [Mass/Vol] 15.6 g/dL Normal 14.0-18.0 [facility] Comment on above: Performed By: #### C BC ####[facility] Tbmaqbeozt[address] [place], [place] [address]Dr. Garima Pulliam IG # 0.01 10e3/ul Normal 0.00-0.03 [facility] Comment on above: Performed By: #### C BC ####[facility] Ypdkfeokps2841 [place] [id number]. Garima Pulliam IG % 0.2 % Normal 0.0-0.5 [facility] Comment on above: Performed By: #### C BC ####[facility] Fvvszkhzit2444 [place] [address]Dr. Garima Pulliam LYMPH # 0.8 103/ul Critically low 1.2-3.8 [facility] Comment on above: Performed By: #### C BC ####[facility] Glgtbahjau8058 [place] [address]Dr. Garima Pulliam Lymphocytes/100 WBC (Bld) 12.7 % Critically low 20.5-60.0 [facility] Comment on above: Performed By: #### C BC ####[facility] Udnkquujmk6986 [place] [address]Dr. Garima Pulliam MANUAL DIFF REQ NO Normal [facility] Comment on above: Performed By: #### C BC ####[facility] Mnrscnrxmv9522 [place] [phone]. Garima Pulliam MCH (RBC) [Entitic mass] 30.2 pg Normal 25.9-34.0 [facility] Comment on above: Performed By: #### C BC ####[facility] Vfxslpaulq7530 [place] [address]Dr. Garima Pulliam MCHC (RBC) [Mass/Vol] 33.4 g/dL Normal 29.9-35.2 [facility] Comment on above: Performed By: #### C BC ####[facility] Fihimiusle7781 [place] [address]Dr. Garima Pulliam MCV (RBC) [Entitic vol] 90.3 fL Normal 80.0-94.0 [facility] Comment on above: Performed By: #### C BC ####[facility] Nmtbuyrmak3957 [place] [address]Dr. Garima Heraclio MONO # 0.1 103/ul Critically low 0.3-0.8 [facility] Comment on above: Performed By: #### C BC ####[facility] Iewbzpmwhp5660 [place] [address]Dr. Gairma Pulliam Monocytes/100 WBC (Bld) 0.9 % Critically low 1.7-12.0 [facility] Comment on above: Performed By: #### C BC ####[facility] Aqkcohuejk3981 [place] [address]Dr. Garima Pulliam NEUT # 5.6 103/ul Normal 1.4-6.5 [facility] Comment on above: Performed By: #### C BC ####[facility] Ophwsjzcxg2175 [place] [address]Dr. Garima Pulliam Neutrophils/100 WBC (Bld) 86.2 % Critically high 43.0-75.0 [facility] Comment on above: Performed By: #### C BC ####[facility] Qedvwtxzue2180 [place] [address]Dr. Garima Pulliam Platelet mean volume (Bld) [Entitic vol] 9.1 fL Critically low 9.5-13.5 [facility] Comment on above: Performed By: #### C BC ####[facility] Mmrzdieuod[address] [place], [place] [address]Dr. Garima Pulliam PLT 169 103/ul Normal 150-450 [facility] Comment on above: Performed By: #### C BC ####[facility] Stevzymkwo[address] [place], [place] [address]Dr. Garima Pulliam RBC 5.17 106/ul Normal 4.70-6.10 [facility] Comment on above: Performed By: #### C BC ####[facility] E[address]ogfxnei[address] [place], [place] [address]Dr. Garima Pulliam WBC 6.5 103/ul Normal 4.0-11.0 [facility] Comment on above: Performed By: #### C BC ####[facility] Aiezkunrgq[address] [place], [place] [address]Dr. Garima Pulliam D-DIMERon 01-13-2023 D-DIMER 0.41 mg/L FEU Normal <=0.59 [facility] Comment on above: Performed By: #### D DIM ####[facility] Hgzyngujgi4103 [place] [address]Dr. Garima Pulliam D-DIMER COMMENTS SEE BELOW Normal [facility] Comment on above: Result Comment: [...] generalized hospitalization. Performed By: #### D DIM ####[facility] Hkgslamyub[address] [place], [place] [address]Dr. Garima Pulliam PROF 14(COMP METB)on 023 Albumin [Mass/Vol] 3.4 g/dL Normal 3.4-5.0 [facility] Comment on above: Performed By: #### C MP ####[facility] Akcumpijqd[address] [place], [place] [address]Dr. Garima Pulliam Albumin/Globulin [Mass ratio] 1.3 {ratio} Normal [facility] Comment on above: Performed By: #### C MP ####[facility] Gqeifytjpj[address] [place], [place] [address]Dr. Garima Pulliam ALP [Catalytic activity/Vol] 83 U/L Normal 46-116 [facility] Comment on above: Performed By: #### C MP ####[facility] Ujnlsytkrk[address] [place], [place] [address]Dr. Garima Pulliam ALT [Catalytic activity/Vol] 25 U/L Normal 16-63 [facility] Comment on above: Performed By: #### C MP ####[facility] Obhekwcfoq8771 [place] [address]Dr. Garima Pulliam Anion gap [Moles/Vol] 14.5 mmol/L Normal [facility] Comment on above: Performed By: #### C MP ####[facility] Kwvvhevwji24[address] [place], [place] [address]Dr. Garima Pulliam AST [Catalytic activity/Vol] 19 U/L Normal 15-37 [facility] Comment on above: Performed By: #### C MP ####[facility] Rzvxdvosjx74[address] [place], [place] [address]Dr. Garima Pulliam Bilirubin [Mass/Vol] 0.4 mg/dL Normal 0.2-1.0 [facility] Comment on above: Performed By: #### C MP ####[facility] Enfrlddvny[address] [place], [place] [address]Dr. Garima Pulliam Calcium [Mass/Vol] 8.7 mg/dL Normal 8.5-10.1 [facility] Comment on above: Performed By: #### C MP ####[facility] Imisfoeejk[address] [place], [place] [address]Dr. Garima Pulliam Chloride [Moles/Vol] 104 mmol/L Normal 98-107 [facility] Comment on above: Performed By: #### C MP ####[facility] Orsoausskq[address] [place], [place] [address]Dr. Garima Pulliam CO2 [Moles/Vol] 24.5 mmol/L Normal 21.0-32.0 [facility] Comment on above: Performed By: #### C MP ####[facility] Dfjlwiaauh88[address] [place], [place] [address]Dr. Garima Pulliam Creatinine [Mass/Vol] 0.70 mg/dL Normal 0.70-1.30 [facility] Comment on above: Performed By: #### C MP ####[facility] Hjmfrenwtv[address] [place], [place] [address]Dr. Garima Heraclio EGFR-AF [place] >60 Normal >=60 [facility] Comment on above: Performed By: #### C MP ####[facility] Qbqiutrpcs[address] [place], [place] [address]Dr. Chapisrenu Heraclio EGFR-NON AF [place] >60 Normal >=60 [facility] Comment on above: Performed By: #### C MP ####[facility] Njxcmpytck[address] [place], [place] [address]Dr. Chapisrenu Pulliam Globulin (S) [Mass/Vol] 2.6 g/dL Normal [facility] Comment on above: Performed By: #### C MP ####[facility] Fmddehxnqj2991 [place] [address]Dr. Garima Pulliam Glucose [Mass/Vol] 196 mg/dL Critically high 74-106 [facility] Comment on above: Performed By: #### C MP ####[facility] Veufkpzndm5176 [place] [address]Dr. Garima Pulliam Potassium [Moles/Vol] 4.0 mmol/L Normal 3.5-5.1 [facility] Comment on above: Performed By: #### C MP ####[facility] Oizvbcfoxc9245 [place] [address]Dr. Garima Pulliam Protein [Mass/Vol] 6.0 g/dL Critically low 6.4-8.2 [facility] Comment on above: Performed By: #### C MP ####[facility] Uyhqnqcknd[address] [place], [place] [address]Dr. Garima Pulliam Sodium [Moles/Vol] 139 mmol/L Normal 136-145 [facility] Comment on above: Performed By: #### C MP ####[facility] Vfkihyytmm[address] [place], [place] [address]Dr. Garima Pulliam Urea nitrogen [Mass/Vol] 7.0 mg/dL Normal 7.0-18.0 [facility] Comment on above: Performed By: #### C MP ####[facility] Dvjhasmkzm[address] [place], [place] [address]Dr. Garima Heraclio Urea nitrogen/Creatinine [Mass ratio] 10.0 mg/mg Normal [facility] Comment on above: Performed By: #### C MP ####[facility] Pmosjlurfu[address] [place], [place] [address]Dr. Garima Heraclio BNPon 01-12-2023 Natriuretic peptide B (Bld) [Mass/Vol] 141.0 pg/mL Normal <=900.0 [facility] Comment on above: Performed By: #### C MP, BNP, HSTROPN ####[facility] Nqqkplmzmc[address] [place], [place] [address]Dr. Garima Heraclio CBC AUTO DIFFon 01-12-2023 BASO # 0.0 103/ul Normal 0.0-0.1 [facility] Comment on above: Performed By: #### C BC ####[facility] Ousnlzzism9671 [place] [id number]. Garima Heraclio Basophils/100 WBC (Bld) 0.2 % Normal 0.2-2.0 [facility] Comment on above: Performed By: #### C BC ####[facility] Jvqibfobde5258 [place] [address]Dr. Garima Heraclio EO # 0.2 103/ul Normal 0.0-0.7 [facility] Comment on above: Performed By: #### C BC ####[facility] Qdkokgmebs4684 [place] [address]Dr. Garima Heraclio Eosinophils/100 WBC (Bld) 2.7 % Normal 0.9-7.0 [facility] Comment on above: Performed By: #### C BC ####[facility] Umaljgwhub[address] [place], [place] [address]Dr. Garima Pulliam Erythrocyte distribution width (RBC) [Ratio] 13.3 % Normal 11.0-15.0 [facility] Comment on above: Performed By: #### C BC ####[facility] Qxpzgcmwyf[address] [place], [place] [address]Dr. Garima Pulliam Hematocrit (Bld) [Volume fraction] 42.3 % Normal 42.0-54.0 [facility] Comment on above: Performed By: #### C BC ####[facility] Rhhwadjfdn[address] [place], [place] [address]Dr. Garima Pulliam Hemoglobin (Bld) [Mass/Vol] 14.3 g/dL Normal 14.0-18.0 [facility] Comment on above: Performed By: #### C BC ####[facility] Ztacslywtp[address] [place], [place] [address]Dr. Garima Pulliam IG # 0.02 10e3/ul Normal 0.00-0.03 [facility] Comment on above: Performed By: #### C BC ####[facility] Gfteoqfssq1515 [place] [id number]. Garima Pulliam IG % 0.2 % Normal 0.0-0.5 [facility] Comment on above: Performed By: #### C BC ####[facility] Lquqabikac0023 [place] [address]Dr. Garima Pulliam LYMPH # 2.6 103/ul Normal 1.2-3.8 [facility] Comment on above: Performed By: #### C BC ####[facility] Synflimlap3423 [place] [address]Dr. Garima Heraclio Lymphocytes/100 WBC (Bld) 29.6 % Normal 20.5-60.0 [facility] Comment on above: Performed By: #### C BC ####[facility] Nhcbdvdvgz[address] [place] [address]Dr. Garima Heraclio MANUAL DIFF REQ NO Normal [facility] Comment on above: Performed By: #### C BC ####[facility] Rbyadpqkxu2373 [place] [id number]. Garima Pulliam MCH (RBC) [Entitic mass] 30.2 pg Normal 25.9-34.0 [facility] Comment on above: Performed By: #### C BC ####[facility] Znzayzhqrp2652 [place] [address]Dr. Garima Pulliam MCHC (RBC) [Mass/Vol] 33.8 g/dL Normal 29.9-35.2 [facility] Comment on above: Performed By: #### C BC ####[facility] Duieglthlc4936 [place] [address]Dr. Garima Pulliam MCV (RBC) [Entitic vol] 89.2 fL Normal 80.0-94.0 [facility] Comment on above: Performed By: #### C BC ####[facility] Y[address] [place], [place] [address]Dr. Chapisrenu Pulliam MONO # 0.7 103/ul Normal 0.3-0.8 [facility] Comment on above: Performed By: #### C BC ####[facility] Nrholtptbn2993 [place] [address]Dr. Garima Pulliam Monocytes/100 WBC (Bld) 8.3 % Normal 1.7-12.0 [facility] Comment on above: Performed By: #### C BC ####[facility] Ijamcsgeim5991 [place] [address]Dr. Garima Pulliam NEUT # 5.1 103/ul Normal 1.4-6.5 [facility] Comment on above: Performed By: #### C BC ####[facility] Hpbyvtnjxd1572 [place] [address]Dr. Garima Pulliam Neutrophils/100 WBC (Bld) 59.0 % Normal 43.0-75.0 [facility] Comment on above: Performed By: #### C BC ####[facility] Yvjihiqxkd6627 [place] [address]Dr. Garima Pulliam Platelet mean volume (Bld) [Entitic vol] 8.7 fL Critically low 9.5-13.5 [facility] Comment on above: Performed By: #### C BC ####[facility] Ycgriofigz1114 [place] [address]Dr. Garima Pulliam PLT 182 103/ul Normal 150-450 [facility] Comment on above: Performed By: #### C BC ####[facility] Xhbozzxmts3392 [place] [id number]. Garima Pulliam RBC 4.74 106/ul Normal 4.70-6.10 [facility] Comment on above: Performed By: #### C BC ####[facility] [address] [place], [place] [address]Dr. Garima Pulliam WBC 8.7 103/ul Normal 4.0-11.0 [facility] Comment on above: Performed By: #### C BC ####[facility] Ifhhrtypvi[address] [place], [place] [address]Dr. aGrima Pulliam Covid-19 PCR (CVDTB)on 12-25 SARS-CoV-2 (COVID-19) RNA MARIE+probe Ql (Unsp spec) Not detected Normal NOT DETECTED [facility] Comment on above: Result Comment: When [...] for this test is supported by the [place] of Health and Human Service's declaration that [...] be used). Performed By: #### C VDTBH ####[facility] Qgqvtbvcej3854 [place] [address]Dr. Garima Pulliam PROF 14(COMP METB)on 023 Albumin [Mass/Vol] 3.6 g/dL Normal 3.4-5.0 [facility] Comment on above: Performed By: #### C MP, BNP, HSTROPN ####[facility] Klntfmdsfp8275 [place] [address]Dr. Garima Pulliam Albumin/Globulin [Mass ratio] 1.5 {ratio} Normal [facility] Comment on above: Performed By: #### C MP, BNP, HSTROPN ####[facility] [address] [place] [address]Dr. Garima Pulliam ALP [Catalytic activity/Vol] 79 U/L Normal 46-116 [facility] Comment on above: Performed By: #### C MP, BNP, HSTROPN ####[facility] K[address]qqnpkcxi[address] [place] [address]Dr. Garima Pulliam ALT [Catalytic activity/Vol] 27 U/L Normal 16-63 [facility] Comment on above: Performed By: #### C MP, BNP, HSTROPN ####[facility] Pzbnlqsoil[address] [place] [address]Dr. Garima Pulliam Anion gap [Moles/Vol] 11.7 mmol/L Normal [facility] Comment on above: Performed By: #### C MP, BNP, HSTROPN ####[facility] Hfzbyxslsk[address] [place] [address]Dr. Garima Pulliam AST [Catalytic activity/Vol] 21 U/L Normal 15-37 [facility] Comment on above: Performed By: #### C MP, BNP, HSTROPN ####[facility] Tajrypuyzk[address] [place] [address]Dr. Garima Pulliam Bilirubin [Mass/Vol] 0.3 mg/dL Normal 0.2-1.0 [facility] Comment on above: Performed By: #### C MP, BNP, HSTROPN ####[facility] Tlsoppnzwp[address] [place] [address]Dr. Garima Pulliam Calcium [Mass/Vol] 8.9 mg/dL Normal 8.5-10.1 [facility] Comment on above: Performed By: #### C MP, BNP, HSTROPN ####[facility] Bdrwoweclm[address] [place] [address]Dr. Garima Pulliam Chloride [Moles/Vol] 107 mmol/L Normal 98-107 [facility] Comment on above: Performed By: #### C MP, BNP, HSTROPN ####[facility] Uhxcsxfoqw4[address] [place] [address]Dr. Garima Pulliam CO2 [Moles/Vol] 26.0 mmol/L Normal 21.0-32.0 [facility] Comment on above: Performed By: #### C MP, BNP, HSTROPN ####[facility] Thkwhrbiif[address] [place] [address]Dr. Garima Pulliam Creatinine [Mass/Vol] 0.65 mg/dL Critically low 0.70-1.30 [facility] Comment on above: Performed By: #### C MP, BNP, HSTROPN ####[facility] Slxsfsbmkb24[address] [place] [address]Dr. Yilan Pulliam EGFR-AF [place] >60 Normal >=60 [facility] Comment on above: Performed By: #### C MP, BNP, HSTROPN ####[facility] Ceolnsjrdh[address] [place] [address]Dr. Garima Pulliam EGFR-NON AF [place] >60 Normal >=60 [facility] Comment on above: Performed By: #### C MP, BNP, HSTROPN ####[facility] Kjysznbhkf[address] [place] [address]Dr. Garima Pulliam Globulin (S) [Mass/Vol] 2.4 g/dL Normal [facility] Comment on above: Performed By: #### C MP, BNP, HSTROPN ####[facility] [address] [place], [place] [address]Dr. Garima Pulliam Glucose [Mass/Vol] 85 mg/dL Normal 74-106 [facility] Comment on above: Performed By: #### C MP, BNP, HSTROPN ####[facility] Wllmacsqgz39[address] [place] [address]Dr. Garima Pulliam Potassium [Moles/Vol] 3.7 mmol/L Normal 3.5-5.1 [facility] Comment on above: Performed By: #### C MP, BNP, HSTROPN ####[facility] Lsuqxgfqdj45[address] [place] [address]Dr. Garima Pulliam Protein [Mass/Vol] 6.0 g/dL Critically low 6.4-8.2 [facility] Comment on above: Performed By: #### C MP, BNP, HSTROPN ####[facility] Cdlaqxyosr101[address] [place] [address]Dr. Garima Pulliam Sodium [Moles/Vol] 141 mmol/L Normal 136-145 [facility] Comment on above: Performed By: #### C MP, BNP, HSTROPN ####[facility] Lkquklfvro9[address] [place] [address]Dr. Garima Pulliam Urea nitrogen [Mass/Vol] 5.0 mg/dL Critically low 7.0-18.0 [facility] Comment on above: Performed By: #### C MP, BNP, HSTROPN ####[facility] Dzqovoyfpp[address] [place] [address]Dr. Garima Pulliam Urea nitrogen/Creatinine [Mass ratio] 7.7 mg/mg Normal [facility] Comment on above: Performed By: #### C MP, BNP, HSTROPN ####[facility] Jvaxwtsylf[address] [place] [address]Dr. Garima Pulliam PROTIMEon 01-12-2023 INR Coag (PPP) [Relative time] 1.16 {INR} Normal [facility] Comment on above: Performed By: #### P TT, PT ####[facility] C[address]ajemuik[address] [place] [address]Dr. Garima Pulliam INR GUIDELINES SEE BELOW Normal [facility] Comment on above: Result Comment: WESLEY RED INR: 2.0 - 3.0 CONDITIONS NOT LISTED BELOW 2.5 - 3.5 FOR PROSTHETIC HEART VALVE REPLACEMENT 2.5 - 3.5 RECURRENT THROMBOSIS Performed By: #### P TT, PT ####[facility] Mtfksbqxfm[address] [place], [place] [address]Dr. Garima Pulliam PT Coag (PPP) [Time] 12.2 s Critically high 9.0-11.6 [facility] Comment on above: Performed By: #### P TT, PT ####[facility] Xhxcoousmp08[address] [place] [address]Dr. Garima Pulliam PTTon 01-12-2023 aPTT Coag (Bld) [Time] 29.1 s Normal 22.3-36.2 [facility] Comment on above: Performed By: #### P TT, PT ####[facility] [address]weuoqeov[address] [place], [place] [address]Dr. Garima Pulliam TROPONIN, HIGH SENSITIVITYon 01-12-2023 HSTROP 10.3 pg/mL Normal 4.0-76.1 [facility] Comment on above: Result Comment: CUT- OFF POINTS HAVE BEEN ESTABLISHED BASED ON THE FOURTH UNIVERSAL DEFINITIONS OF MYOCARDIALINFARCTION. THE UPPER REFERENCE LIMIT (URL) OF TROPONIN, DEFINED THE 99TH PERCENTILE OFcTnI DISTRIBUTION IN A REFERENCE POPULATION, HAS BEEN CONFIRMED THE DECISION THRESHOLDFOR [place] DIAGNOSIS. Performed By: #### H STROPN ####[facility] Z[address]oomtwdse[address] [place] [address]Dr. Garima Pulliam HSTROP 9.2 pg/mL Normal 4.0-76.1 [facility] Comment on above: Result Comment: CUT- OFF POINTS HAVE BEEN ESTABLISHED BASED ON THE FOURTH UNIVERSAL DEFINITIONS OF MYOCARDIALINFARCTION. THE UPPER REFERENCE LIMIT (URL) OF TROPONIN, DEFINED THE 99TH PERCENTILE OFcTnI DISTRIBUTION IN A REFERENCE POPULATION, HAS BEEN CONFIRMED THE DECISION THRESHOLDFOR [place] DIAGNOSIS. Performed By: #### C MP, BNP, HSTROPN ####[facility] Fhwmkevtuw[address] [place] [address]Dr. Garima Pulliam XR CHEST 1 Von 01-12-2023 XR CHEST 1 V Normal [facility] XR CHEST 1 Von 01-01-2023 XR CHEST 1 V Normal [facility] CARDIAC NASH 3-6on 3 CK [Catalytic activity/Vol] 196 U/L Normal 39-308 [facility] Comment on above: Performed By: #### C MREP ####[facility] [address]rmgapud[address] [place] [address]Dr. Garima Pulliam CK.MB [Mass/Vol] 7.41 ng/mL Critically high <=3.60 [facility] Comment on above: Performed By: #### C MREP ####[facility] Kncwpxjtxg59[address] [place] [address]Dr. Garima Pulliam HSTROP 10.3 pg/mL Normal 4.0-76.1 [facility] Comment on above: Result Comment: CUT- OFF POINTS HAVE BEEN ESTABLISHED BASED ON THE FOURTH UNIVERSAL DEFINITIONS OF MYOCARDIALINFARCTION. THE UPPER REFERENCE LIMIT (URL) OF TROPONIN, DEFINED THE 99TH PERCENTILE OFcTnI DISTRIBUTION IN A REFERENCE POPULATION, HAS BEEN CONFIRMED THE DECISION THRESHOLDFOR [place] DIAGNOSIS. Performed By: #### C MREP ####[facility] [address]qsplvl[address] [place] [id number]. Garima Pulliam XR CHEST 1 Von 12-26-2022 XR CHEST 1 V Normal [facility] BNPon 12-25-2022 Natriuretic peptide B (Bld) [Mass/Vol] 98.0 pg/mL Normal <=900.0 [facility] Comment on above: Performed By: #### B MARVIN FRENCH CMADM ####[facility] Orrtkobklg[address] [place] [address]Dr. Garima Pulliam CARDIAC NAHS ADMITon 023 CK [Catalytic activity/Vol] 208 U/L Normal 39-308 [facility] Comment on above: Performed By: #### B MARVIN FRENCH CMADM ####[facility] Okmrqoygae3[address] [place] [address]Dr. Garima Pulliam CK.MB [Mass/Vol] 7.63 ng/mL Critically high <=3.60 [facility] Comment on above: Performed By: #### B MARVIN FRENCH CMADM ####[facility] Xar[address]urs[address] [place], [place] [address]Dr. Garima Pulliam HSTROP 8.8 pg/mL Normal 4.0-76.1 [facility] Comment on above: Result Comment: CUT- OFF POINTS HAVE BEEN ESTABLISHED BASED ON THE FOURTH UNIVERSAL DEFINITIONS OF MYOCARDIALINFARCTION. THE UPPER REFERENCE LIMIT (URL) OF TROPONIN, DEFINED THE 99TH PERCENTILE OFcTnI DISTRIBUTION IN A REFERENCE POPULATION, HAS BEEN CONFIRMED THE DECISION THRESHOLDFOR [place] DIAGNOSIS. Performed By: #### B MARVIN FRENCH CMADM ####[facility] [address]ifuyj[address] [place], [place] [address]Dr. Garima Pulliam DORIS 83 ng/mL Normal 16-96 [facility] Comment on above: Performed By: #### B MARVIN FRENCH CMADM ####[facility] Mdpmszpgwt[address] [place], [place] [address]Dr. Garima Pulliam CBC AUTO DIFFon 12-25-2022 BASO # 0.0 103/ul Normal 0.0-0.1 [facility] Comment on above: Performed By: #### C BC ####[facility] Oebxwi[address]me[address] [place], [place] [address]Dr. Garima Pulliam Basophils/100 WBC (Bld) 0.0 % Critically low 0.2-2.0 [facility] Comment on above: Performed By: #### C BC ####[facility] Mezmfkmhqz[address] [place] [address]Dr. Garima Pulliam EO # 0.0 103/ul Normal 0.0-0.7 [facility] Comment on above: Performed By: #### C BC ####[facility] Gunqkuaycq[address] [place], [place] [address]Dr. Garima Pulliam Eosinophils/100 WBC (Bld) 0.7 % Critically low 0.9-7.0 [facility] Comment on above: Performed By: #### C BC ####[facility] Han[address]wcu[address] [place], [place] [address]Dr. Garima Pulliam Erythrocyte distribution width (RBC) [Ratio] 13.4 % Normal 11.0-15.0 [facility] Comment on above: Performed By: #### C BC ####[facility] Ivweidqqoj[address] [place], [place] [address]Dr. Garima Pulliam Hematocrit (Bld) [Volume fraction] 42.9 % Normal 42.0-54.0 [facility] Comment on above: Performed By: #### C BC ####[facility] Wahgivmbzs[address] [place], [place] [address]Dr. Garima Pulliam Hemoglobin (Bld) [Mass/Vol] 14.4 g/dL Normal 14.0-18.0 [facility] Comment on above: Performed By: #### C BC ####[facility] Vceefjrjjl[address] [place], [place] [address]Dr. Garima Pulliam IG # 0.00 10e3/ul Normal 0.00-0.03 [facility] Comment on above: Performed By: #### C BC ####[facility] Jcryhewwfl[address] [place], [place] [address]Dr. Garima Pulliam IG % 0.0 % Normal 0.0-0.5 [facility] Comment on above: Performed By: #### C BC ####[facility] Yssjikjkrr[address] [place], [place] [address]Dr. Garima Pulliam LYMPH # 2.4 103/ul Normal 1.2-3.8 [facility] Comment on above: Performed By: #### C BC ####[facility] Tr[address]kssmwf42[address] [place] [id number]. Chapisrenu Pulliam Lymphocytes/100 WBC (Bld) 29.2 % Normal 20.5-60.0 [facility] Comment on above: Performed By: #### C BC ####[facility] Kbjtigdtju54[address] [place] [id number]. Garima Pulliam MANUAL DIFF REQ NO Normal [facility] Comment on above: Performed By: #### C BC ####[facility] Txbmlrqbej6[address] [place] [id number]. Garima Pulliam MCH (RBC) [Entitic mass] 30.7 pg Normal 25.9-34.0 [facility] Comment on above: Performed By: #### C BC ####[facility] Hfpk[address]zj[address] [place], [place] [address]Dr. Garima Pulliam MCHC (RBC) [Mass/Vol] 33.6 g/dL Normal 29.9-35.2 [facility] Comment on above: Performed By: #### C BC ####[facility] Leacjjlbbw[address] [place], [place] [address]Dr. Garima Pulliam MCV (RBC) [Entitic vol] 91.5 fL Normal 80.0-94.0 [facility] Comment on above: Performed By: #### C BC ####[facility] Urozpmbhxq[address] [place], [place] [address]Dr. Garima Pulliam MONO # 0.0 103/ul Critically low 0.3-0.8 [facility] Comment on above: Performed By: #### C BC ####[facility] Rzbcltovor[address] [place] [address]Dr. Garima Pulliam Monocytes/100 WBC (Bld) 8.0 % Normal 1.7-12.0 [facility] Comment on above: Performed By: #### C BC ####[facility] Ieqlcthxes[address] [place], [place] [address]Dr. Garima Pulliam NEUT # 5.1 103/ul Normal 1.4-6.5 [facility] Comment on above: Performed By: #### C BC ####[facility] Lwjigcuhuc0410 [place], [place] [address]Ag. Garima Pulliam Neutrophils/100 WBC (Bld) 62.8 % Normal 43.0-75.0 [facility] Comment on above: Performed By: #### C BC ####[facility] Xdixgtfqfy8862 [place], [place] [address]Sb. Garima Pulliam Platelet mean volume (Bld) [Entitic vol] 8.6 fL Critically low 9.5-13.5 [facility] Comment on above: Performed By: #### C BC ####[facility] Mxfbffiwzn7[address] [place] [id number]. Garima Pulliam PLT 200 103/ul Normal 150-450 [facility] Comment on above: Performed By: #### C BC ####[facility] Hpehxbrjyc4387 [place] [id number]. Garima Pulliam RBC 4.69 106/ul Critically low 4.70-6.10 [facility] Comment on above: Performed By: #### C BC ####[facility] Zilcesdijy0066 [place], [place] [address]Rs. Garima Pulliam WBC 8.2 103/ul Normal 4.0-11.0 [facility] Comment on above: Performed By: #### C BC ####[facility] Aeaomseggt8390 [place], [place] [address]Gd. Garima Pulliam [facility]on SARS-CoV-2 (COVID-19) RNA MARIE+probe Ql (Unsp spec) Not detected Normal NOT DETECTED [facility] Comment on above: Result Comment: When [...] for this test is supported by the Cardiopulmonary Supervisor of Health and Human Service's declaration that [...] be used). Performed By: #### C VDTBH ####[facility] Fkvakqvpma[address] [place], [place] [address]Dr. Garima Pulliam INFLUENZA A AND B AGon 12-25 INFLUANEGH SEE BELOW Normal [facility] Comment on above: Result Comment: Nega tive for Flu A protein angiten. Infection due to Flu A cannot be ruled out. Flu A angiten in the sample may be below the detection limit of the test. Performed By: #### I NFLUAB ####[facility] Cfqyozlgss[address] [place], [place] [address]Dr. Garima Pulliam INFLUBNEGH SEE BELOW Normal [facility] Comment on above: Result Comment: Nega tive for Flu B protein antigen. Infection due to Flu B cannot be ruled out. Flu B antigen in the sample may be below the detection limit of the test. Performed By: #### I NFLUAB ####[facility] Ifqcrvpiov02[address] [place], [place] [address]Dr. Garima Pulliam INFLUENZA A AG Negative Normal NEGATIVE SEE COMMENT [facility] Comment on above: Performed By: #### I NFLUAB ####[facility] Lzrelcgtiv[address] [place], [place] [address]Dr. renu [facility] INFLUENZA B AG Negative Normal NEGATIVE SEE COMMENT [facility] Comment on above: Performed By: #### I NFLUAB ####[facility] Scyydyvlwo[address] [place], [place] [address]Dr. Garima Pulliam PROF CHEM 8 (BAS METB)on Anion gap [Moles/Vol] 11.1 mmol/L Normal [facility] Comment on above: Performed By: #### B BUSINESS STRATEGIST, BMP, CMADM ####[facility] Nunegabtdn[address] [place], [place] [address]Dr. Garima Pulliam Calcium [Mass/Vol] 8.5 mg/dL Normal 8.5-10.1 [facility] Comment on above: Performed By: #### B BUSINESS STRATEGIST, MARVIN, CMADM ####[facility] Mzovyogqip95[address] [place] [id number]. Garima Pulliam Chloride [Moles/Vol] 106 mmol/L Normal 98-107 [facility] Comment on above: Performed By: #### B BUSINESS STRATEGIST, BMP, CMADM ####[facility] Jrvojizxlp3569 [place] [address]Dr. Garima Pulliam CO2 [Moles/Vol] 27.4 mmol/L Normal 21.0-32.0 [facility] Comment on above: Performed By: #### B BUSINESS STRATEGIST, MARVIN, CMADM ####[facility] Fzameryphs11[address] [place] [address]Dr. Garima Pulliam Creatinine [Mass/Vol] 0.65 mg/dL Critically low 0.70-1.30 [facility] Comment on above: Performed By: #### B BUSINESS STRATEGIST, MARVIN, CMADM ####[facility] Pbtpsfbhzf9975 [place] [address]Dr. Garima Pulliam EGFR-AF [place] >60 Normal >=60 [facility] Comment on above: Performed By: #### B BUSINESS STRATEGIST, BMP, CMADM ####[facility] Diontewpwi0061 [place] [address]Dr. Graima Pulliam EGFR-NON AF [place] >60 Normal >=60 [facility] Comment on above: Performed By: #### B BUSINESS STRATEGIST, BMP, CMADM ####[facility] Vwjywnvjxn2994 [place] [address]Dr. Garmia Pulliam Glucose [Mass/Vol] 140 mg/dL Critically high 74-106 [facility] Comment on above: Performed By: #### B BUSINESS STRATEGIST, BMP, CMADM ####[facility] Zkqatvluux8598 [place] [address]Dr. Garima Pulliam Potassium [Moles/Vol] 3.5 mmol/L Normal 3.5-5.1 [facility] Comment on above: Performed By: #### B BUSINESS STRATEGIST, BMP, CMADM ####[facility] Fpolvijeof9838 [place] [address]Dr. Garima Pulliam Sodium [Moles/Vol] 141 mmol/L Normal 136-145 [facility] Comment on above: Performed By: #### B BUSINESS STRATEGIST, BMP, CMADM ####[facility] Kbckvfxmwh8352 [place] [address]Dr. Garima Pulliam Urea nitrogen [Mass/Vol] 8.0 mg/dL Normal 7.0-18.0 [facility] Comment on above: Performed By: #### B BUSINESS STRATEGIST, BMP, CMADM ####[facility] Lprovcuxch7478 [place] [address]Dr. Garima Pulliam Urea nitrogen/Creatinine [Mass ratio] 12.3 mg/mg Normal [facility] Comment on above: Performed By: #### B BUSINESS STRATEGIST, BMP, CMADM ####[facility] W[address]lylwbu[address] [place], [place] [address]Dr. Garima Pulliam CARDIAC NASH ADMITon 023 CK [Catalytic activity/Vol] 165 U/L Normal 39-308 [facility] Comment on above: Performed By: #### B DAVID, CMADM ####[facility] Bwkhqxtifr[address] [place], [place] [address]Dr. Garima Pulliam CK.MB [Mass/Vol] 6.48 ng/mL Critically high <=3.60 [facility] Comment on above: Performed By: #### B MP, CMADM ####[facility] Okojtgpxdk18[address] [place], [place] [address]Dr. Garima Pulliam HSTROP 11.7 pg/mL Normal 4.0-76.1 [facility] Comment on above: Result Comment: CUT- OFF POINTS HAVE BEEN ESTABLISHED BASED ON THE FOURTH UNIVERSAL DEFINITIONS OF MYOCARDIALINFARCTION. THE UPPER REFERENCE LIMIT (URL) OF TROPONIN, DEFINED THE 99TH PERCENTILE OFcTnI DISTRIBUTION IN A REFERENCE POPULATION, HAS BEEN CONFIRMED THE DECISION THRESHOLDFOR [place] DIAGNOSIS. Performed By: #### B MP, CMADM ####[facility] Eiukgibctb[address] [place], [place] [address]Dr. Garima Pulliam DORIS 83 ng/mL Normal 16-96 [facility] Comment on above: Performed By: #### B MP, CMADM ####[facility] Snzbibbufq060[address] [place] [address]Dr. Garima Pulliam CBC AUTO DIFFon 12-10-2022 BASO # 0.0 103/ul Normal 0.0-0.1 [facility] Comment on above: Performed By: #### C BC ####[facility] Qimzubjonn[address] [place], [place] [address]Dr. Garima Heraclio Basophils/100 WBC (Bld) 0.3 % Normal 0.2-2.0 [facility] Comment on above: Performed By: #### C BC ####[facility] Ifkpkdzoyu[address] [place], [place] [address]Dr. Garima Pulliam EO # 0.1 103/ul Normal 0.0-0.7 [facility] Comment on above: Performed By: #### C BC ####[facility] Axlroy[address]zg[address] [place], [place] [address]Dr. Garima Pulliam Eosinophils/100 WBC (Bld) 0.4 % Critically low 0.9-7.0 [facility] Comment on above: Performed By: #### C BC ####[facility] Ekrsabtxuv8[address] [place], [place] [address]Dr. Garima Pulliam Erythrocyte distribution width (RBC) [Ratio] 13.2 % Normal 11.0-15.0 [facility] Comment on above: Performed By: #### C BC ####[facility] I[address]ikokpqc[address] [place], [place] [address]Dr. Garima Pulliam Hematocrit (Bld) [Volume fraction] 42.4 % Normal 42.0-54.0 [facility] Comment on above: Performed By: #### C BC ####[facility] Bizqcciymn[address] [place], [place] [address]Dr. Garima Pulliam Hemoglobin (Bld) [Mass/Vol] 14.4 g/dL Normal 14.0-18.0 [facility] Comment on above: Performed By: #### C BC ####[facility] Ywxgghskat[address] [place] [id number]. Garima Heraclio IG # 0.05 10e3/ul Critically high 0.00-0.03 [facility] Comment on above: Performed By: #### C BC ####[facility] Kqyievegld[address] [place] [address]Dr. Garima Heraclio IG % 0.4 % Normal 0.0-0.5 [facility] Comment on above: Performed By: #### C BC ####[facility] Tmwnzrspkf[address] [place], [place] [address]Dr. Garima Pulliam LYMPH # 0.8 103/ul Critically low 1.2-3.8 [facility] Comment on above: Performed By: #### C BC ####[facility] Bqtfyxkucn[address] [place], [place] [address]Dr. Chapisrenu Pulliam Lymphocytes/100 WBC (Bld) 6.5 % Critically low 20.5-60.0 [facility] Comment on above: Performed By: #### C BC ####[facility] Dbefbjpkvq[address] [place], [place] [address]Dr. Chapisrenu Pulliam MANUAL DIFF REQ NO Normal [facility] Comment on above: Performed By: #### C BC ####[facility] Jpwnljuobx[address] [place], [place] [address]DrAdalberto Garima Pulliam MCH (RBC) [Entitic mass] 30.5 pg Normal 25.9-34.0 [facility] Comment on above: Performed By: #### C BC ####[facility] Pamfzkqjif[address] [place], [place] [address]DrAdalberto Garima Heraclio MCHC (RBC) [Mass/Vol] 34.0 g/dL Normal 29.9-35.2 [facility] Comment on above: Performed By: #### C BC ####[facility] Jzxpdphnjf[address] [place], [place] [address]DrAdalberto Garima Heraclio MCV (RBC) [Entitic vol] 89.8 fL Normal 80.0-94.0 [facility] Comment on above: Performed By: #### C BC ####[facility] Iqfchjjbsm[address] [place], [place] [address]Dr. Garima Pulliam MONO # 0.2 103/ul Critically low 0.3-0.8 [facility] Comment on above: Performed By: #### C BC ####[facility] Xayvxvgitg8[address] [place] [id number]. Garima Pulliam Monocytes/100 WBC (Bld) 2.0 % Normal 1.7-12.0 [facility] Comment on above: Performed By: #### C BC ####[facility] Rtsfdlncux[address]04 [place] [address]Dr. Chapisrenu Heraclio NEUT # 10.5 103/ul Critically high 1.4-6.5 [facility] Comment on above: Performed By: #### C BC ####[facility] Yxrvkalpse2133 [place] [address]Dr. Garima Pulliam Neutrophils/100 WBC (Bld) 90.4 % Critically high 43.0-75.0 [facility] Comment on above: Performed By: #### C BC ####[facility] Ilfocdrlcb8162 [place] [address]Dr. Garima Pulliam Platelet mean volume (Bld) [Entitic vol] 9.4 fL Critically low 9.5-13.5 [facility] Comment on above: Performed By: #### C BC ####[facility] Rgjjhgqykt5[address] [place] [address]Dr. Garima Pulliam PLT 198 103/ul Normal 150-450 [facility] Comment on above: Performed By: #### C BC ####[facility] Kuxdccyhkp39[address] [place] [address]Dr. Garima Pulliam RBC 4.72 106/ul Normal 4.70-6.10 [facility] Comment on above: Performed By: #### C BC ####[facility] Ubms[address]daptg6[address] [place] [id number]. Garima Pulliam WBC 11.6 103/ul Critically high 4.0-11.0 [facility] Comment on above: Performed By: #### C BC ####[facility] Tmmldbdhpy5105 [place] [address]DrAdalberto Pulliam PROF CHEM 8 (BAS METB)on Anion gap [Moles/Vol] 11.3 mmol/L Normal [facility] Comment on above: Performed By: #### B NANCY HERNANDEZ ####[facility] Ofsfmmkira[address] [place] [address]Dr. Garima Pulliam Calcium [Mass/Vol] 8.9 mg/dL Normal 8.5-10.1 [facility] Comment on above: Performed By: #### B NANCY HERNANDEZ ####[facility] Gtwiguvdle24[address] [place] [address]Dr. Garima Pulliam Chloride [Moles/Vol] 103 mmol/L Normal 98-107 [facility] Comment on above: Performed By: #### B NANCY HERNANDEZ ####[facility] [address]rs[address]riwgu[address] [place], [place] [address]Dr. Garima Pulliam CO2 [Moles/Vol] 28.2 mmol/L Normal 21.0-32.0 [facility] Comment on above: Performed By: #### NANCY Larkin MP ####[facility] Ryvvpkcfse26[address] [place] [address]Dr. Chapisrenu Pulliam Creatinine [Mass/Vol] 0.60 mg/dL Critically low 0.70-1.30 [facility] Comment on above: Performed By: #### NANCY Larkin MP ####[facility] Ucwhidcjrx7[address] [place] [address]Dr. Garima Pulliam EGFR-AF [place] >60 Normal >=60 [facility] Comment on above: Performed By: #### NANCY Larkin MP ####[facility] Ajclrhblzi3010 [place] [address]Dr. Garima Pulliam EGFR-NON AF [place] >60 Normal >=60 [facility] Comment on above: Performed By: #### NANCY Larkin MP ####[facility] [address]on[address] [place], [place] [address]Dr. Garima Pulliam Glucose [Mass/Vol] 166 mg/dL Critically high 74-106 [facility] Comment on above: Performed By: #### B MP, CMADM ####[facility] Yvtvqrdbme6529 [place] [address]Dr. Garima Pulliam Potassium [Moles/Vol] 3.5 mmol/L Normal 3.5-5.1 [facility] Comment on above: Performed By: #### B MP, CMADM ####[facility] Xwmtklmrjb2302 [place] [address]Dr. Garima Pulliam Sodium [Moles/Vol] 139 mmol/L Normal 136-145 [facility] Comment on above: Performed By: #### B DAVID, CMADM ####[facility] Azlfgxaspq5[address] [place] [address]Dr. Garima Heraclio Urea nitrogen [Mass/Vol] 9.0 mg/dL Normal 7.0-18.0 [facility] Comment on above: Performed By: #### B DAVID, NANCY ####[facility] [address]eq[address] [place], [place] [address]Dr. Garima Heraclio Urea nitrogen/Creatinine [Mass ratio] 15.0 mg/mg Normal [facility] Comment on above: Performed By: #### B DAVID, CMAANA ROSA ####[facility] Jdecnuahxw[address] [place], [place] [address]Dr. Garima Pulliam XR CHEST 1 Von 12-10-2022 XR CHEST 1 V Normal [facility] BNPon 11-27-2022 Natriuretic peptide B (Bld) [Mass/Vol] 95.0 pg/mL Normal <=900.0 [facility] Comment on above: Performed By: #### C MP, HSTROPN, BNP ####[facility] Iihwnuhbeo[address] [place], [place] [address]Dr. Garima Heraclio CBC AUTO DIFFon 11-27-2022 BASO # 0.0 103/ul Normal 0.0-0.1 [facility] Comment on above: Performed By: #### C BC ####[facility] Qmvbfeqj[address] [place], [place] [address]Dr. Garima Heraclio Basophils/100 WBC (Bld) 0.2 % Normal 0.2-2.0 [facility] Comment on above: Performed By: #### C BC ####[facility] Xzefaauzgt3134 [place] [id number]. Garima Pulliam EO # 0.2 103/ul Normal 0.0-0.7 [facility] Comment on above: Performed By: #### C BC ####[facility] Xmaygjjrjk4410 [place] [id number]. Garima Pulliam Eosinophils/100 WBC (Bld) 2.0 % Normal 0.9-7.0 [facility] Comment on above: Performed By: #### C BC ####[facility] Ccviijmqjc[address] [place], [place] [address]Dr. Garima Pulliam Erythrocyte distribution width (RBC) [Ratio] 13.2 % Normal 11.0-15.0 [facility] Comment on above: Performed By: #### C BC ####[facility] Uqqivbzlrh[address] [place], [place] [address]Dr. Garima Pulliam Hematocrit (Bld) [Volume fraction] 42.4 % Normal 42.0-54.0 [facility] Comment on above: Performed By: #### C BC ####[facility] Jyvcllyjkg[address] [place], [place] [address]Dr. Garima Pulliam Hemoglobin (Bld) [Mass/Vol] 14.4 g/dL Normal 14.0-18.0 [facility] Comment on above: Performed By: #### C BC ####[facility] Trwndmuqjv[address] [place], [place] [address]Dr. Garima Pulliam IG # 0.04 10e3/ul Critically high 0.00-0.03 [facility] Comment on above: Performed By: #### C BC ####[facility] Xfwzjrlrte[address] [place], [place] [address]Dr. Garima Pulliam IG % 0.4 % Normal 0.0-0.5 [facility] Comment on above: Performed By: #### C BC ####[facility] Ttgzymnmxw[address] [place], [place] [address]Dr. Garima Pulliam LYMPH # 2.2 103/ul Normal 1.2-3.8 [facility] Comment on above: Performed By: #### C BC ####[facility] Dclzmoeypa22[address] [place] [id number]. Garima Pulliam Lymphocytes/100 WBC (Bld) 21.5 % Normal 20.5-60.0 [facility] Comment on above: Performed By: #### C BC ####[facility] Qdnvtvktao9785 [place] [id number]. Garima Heraclio MANUAL DIFF REQ NO Normal [facility] Comment on above: Performed By: #### C BC ####[facility] Ppdjjgjvoa3355 [place] [id number]. Garima Heraclio MCH (RBC) [Entitic mass] 30.4 pg Normal 25.9-34.0 [facility] Comment on above: Performed By: #### C BC ####[facility] Mvzfczmmlf7338 [place] [address]Dr. Garima Heraclio MCHC (RBC) [Mass/Vol] 34.0 g/dL Normal 29.9-35.2 [facility] Comment on above: Performed By: #### C BC ####[facility] Typqssakky5260 [place] [id number]. Garima Pulliam MCV (RBC) [Entitic vol] 89.6 fL Normal 80.0-94.0 [facility] Comment on above: Performed By: #### C BC ####[facility] Mudfrktobf6502 [place] [address]Dr. Garima Pulliam MONO # 0.8 103/ul Normal 0.3-0.8 [facility] Comment on above: Performed By: #### C BC ####[facility] Tkiidditqs7737 [place] [id number]. Chapisrenu Pulliam Monocytes/100 WBC (Bld) 7.7 % Normal 1.7-12.0 [facility] Comment on above: Performed By: #### C BC ####[facility] Phvjidjblg[address] [place], [place] [address]Dr. Garima Pulliam NEUT # 7.0 103/ul Critically high 1.4-6.5 [facility] Comment on above: Performed By: #### C BC ####[facility] Afzvipjeho7262 [place] [id number]. Garima Pulliam Neutrophils/100 WBC (Bld) 68.2 % Normal 43.0-75.0 [facility] Comment on above: Performed By: #### C BC ####[facility] Avbcnapwxz4201 [place] [address]Dr. Chapisrenu Pulliam Platelet mean volume (Bld) [Entitic vol] 8.9 fL Critically low 9.5-13.5 [facility] Comment on above: Performed By: #### C BC ####[facility] Gorgqtwded0438 [place] [address]Dr. Garima Pulliam PLT 222 103/ul Normal 150-450 [facility] Comment on above: Performed By: #### C BC ####[facility] Nnevgerfmo5049 [place] [address]Dr. Garima Pulliam RBC 4.73 106/ul Normal 4.70-6.10 [facility] Comment on above: Performed By: #### C BC ####[facility] Flxtealmiu3796 [place] [address]Dr. Garima Pulliam WBC 10.3 103/ul Normal 4.0-11.0 [facility] Comment on above: Performed By: #### C BC ####[facility] Exsjatwznh9622 [place] [address]Dr. Garima Pulliam PROF 14(COMP METB)on 023 Albumin [Mass/Vol] 3.7 g/dL Normal 3.4-5.0 [facility] Comment on above: Performed By: #### C MP, HSTROPN, BNP ####[facility] Hrdwbmnzkc8797 [place] [address]Dr. Chapisrenu Pulliam Albumin/Globulin [Mass ratio] 1.5 {ratio} Normal [facility] Comment on above: Performed By: #### C MP, HSTROPN, BNP ####[facility] Xnkgnxcvyt9612 [place] [address]Dr. Garima Pulliam ALP [Catalytic activity/Vol] 79 U/L Normal 46-116 [facility] Comment on above: Performed By: #### C MP, HSTROPN, BNP ####[facility] Mvdscornos6615 [place] [address]Dr. Garima Pulliam ALT [Catalytic activity/Vol] 32 U/L Normal 16-63 [facility] Comment on above: Performed By: #### C MP, HSTROPN, BNP ####[facility] Uugugtrgdw4304 [place] [address]Dr. Garima Pulliam Anion gap [Moles/Vol] 9.5 mmol/L Normal [facility] Comment on above: Performed By: #### C MP, HSTROPN, BNP ####[facility] Azpbqyratt[address] [place], [place] [address]Dr. Garima Pulliam AST [Catalytic activity/Vol] 25 U/L Normal 15-37 [facility] Comment on above: Performed By: #### C MP, HSTROPN, BNP ####[facility] Qbtvmkeihv[address] [place], [place] [address]Dr. Chapislan Pulliam Bilirubin [Mass/Vol] 0.4 mg/dL Normal 0.2-1.0 [facility] Comment on above: Performed By: #### C MP, HSTROPN, BNP ####[facility] Sbjlxeypue[address] [place], [place] [address]Dr. Garima Pulliam Calcium [Mass/Vol] 8.9 mg/dL Normal 8.5-10.1 [facility] Comment on above: Performed By: #### C MP, HSTROPN, BNP ####[facility] Nzhhibxcah[address] [place], [place] [address]Dr. Chapislan Pulliam Chloride [Moles/Vol] 103 mmol/L Normal 98-107 [facility] Comment on above: Performed By: #### C MP, HSTROPN, BNP ####[facility] Rgcbogwgwu[address] [place], [place] [address]Dr. Yilan Pulliam CO2 [Moles/Vol] 28.6 mmol/L Normal 21.0-32.0 [facility] Comment on above: Performed By: #### C MP, HSTROPN, BNP ####[facility] Jaciwwprwd4783 [place] [address]Dr. Garima Pulliam Creatinine [Mass/Vol] 0.72 mg/dL Normal 0.70-1.30 [facility] Comment on above: Performed By: #### C MP, HSTROPN, BNP ####[facility] Qvjlqrndoh5200 [place] [address]Dr. Garima Pulliam EGFR-AF [place] >60 Normal >=60 [facility] Comment on above: Performed By: #### C MP, HSTROPN, BNP ####[facility] Dndeousoxc4305 [place] [address]Dr. Garima Pulliam EGFR-NON AF [place] >60 Normal >=60 [facility] Comment on above: Performed By: #### C MP, HSTROPN, BNP ####[facility] Kygabqtsrz1234 [place] [address]Dr. Garima Pulliam Globulin (S) [Mass/Vol] 2.5 g/dL Normal [facility] Comment on above: Performed By: #### C MP, HSTROPN, BNP ####[facility] Zcsqrmtwwg7[address] [place], [place] [address]Dr. Garima Pulliam Glucose [Mass/Vol] 114 mg/dL Critically high 74-106 T [facility] Comment on above: Performed By: #### C MP, HSTROPN, BNP ####[facility] Hbxdsdaome[address] [place], [place] [address]Dr. Garima Pulliam Potassium [Moles/Vol] 4.1 mmol/L Normal 3.5-5.1 [facility] Comment on above: Performed By: #### C MP, HSTROPN, BNP ####[facility] Sneymcbrly[address] [place], [place] [address]Dr. Garima Pulliam Protein [Mass/Vol] 6.2 g/dL Critically low 6.4-8.2 [facility] Comment on above: Performed By: #### C MP, HSTROPN, BNP ####[facility] Zdnyalucol[address] [place], [place] [address]Dr. Yilan Pulliam Sodium [Moles/Vol] 137 mmol/L Normal 136-145 [facility] Comment on above: Performed By: #### C MP, HSTROPN, BNP ####[facility] Rzzbbhlhit0586 [place] [address]Dr. Garima Pulliam Urea nitrogen [Mass/Vol] 13.0 mg/dL Normal 7.0-18.0 [facility] Comment on above: Performed By: #### C MP, HSTROPN, BNP ####[facility] Mkjvcxguzk4417 [place] [address]Dr. Garima Pulliam Urea nitrogen/Creatinine [Mass ratio] 18.1 mg/mg Normal [facility] Comment on above: Performed By: #### C MP, HSTROPN, BNP ####[facility] Bpmtqhdptp[address] [place], [place] [address]Dr. Garima Pulliam TROPONIN, HIGH SENSITIVITYon 11-27-2022 HSTROP 11.8 pg/mL Normal 4.0-76.1 [facility] Comment on above: Result Comment: CUT- OFF POINTS HAVE BEEN ESTABLISHED BASED ON THE FOURTH UNIVERSAL DEFINITIONS OF MYOCARDIALINFARCTION. THE UPPER REFERENCE LIMIT (URL) OF TROPONIN, DEFINED THE 99TH PERCENTILE OFcTnI DISTRIBUTION IN A REFERENCE POPULATION, HAS BEEN CONFIRMED THE DECISION THRESHOLDFOR [place] DIAGNOSIS. Performed By: #### C MP, HSTROPN, BNP ####[facility] Eblgkbmdwn[address] [place], [place] [address]Dr. Garima Pulliam XR CHEST 1 Von 11-27-2022 XR CHEST 1 V Normal [facility] BNPon 11-20-2022 Natriuretic peptide B (Bld) [Mass/Vol] 73.0 pg/mL Normal <=900.0 [facility] Comment on above: Performed By: #### B MP, HSTROPN, BNP ####[facility] Rsvopcqebe[address] [place], [place] [address]Dr. Garima Pulliam CBC AUTO DIFFon 11-20-2022 BASO # 0.0 103/ul Normal 0.0-0.1 [facility] Comment on above: Performed By: #### C BC ####[facility] Wxppstcjab4646 [place] [id number]. Garima Pulliam Basophils/100 WBC (Bld) 0.3 % Normal 0.2-2.0 [facility] Comment on above: Performed By: #### C BC ####[facility] Jbugyscfis2079 [place] [address]Dr. Garima Pulliam EO # 0.2 103/ul Normal 0.0-0.7 [facility] Comment on above: Performed By: #### C BC ####[facility] Btjqpzhnwp2800 [place] [address]Dr. Garima Pulliam Eosinophils/100 WBC (Bld) 2.1 % Normal 0.9-7.0 [facility] Comment on above: Performed By: #### C BC ####[facility] Xqmncrlrbm[address] [place], [place] [address]Dr. Garima Pulliam Erythrocyte distribution width (RBC) [Ratio] 13.2 % Normal 11.0-15.0 [facility] Comment on above: Performed By: #### C BC ####[facility] Whkrzlpwno[address] [place], [place] [address]Dr. Garima Pulliam Hematocrit (Bld) [Volume fraction] 43.4 % Normal 42.0-54.0 [facility] Comment on above: Performed By: #### C BC ####[facility] [address] [place], [place] [address]Dr. Garima Pulliam Hemoglobin (Bld) [Mass/Vol] 14.6 g/dL Normal 14.0-18.0 [facility] Comment on above: Performed By: #### C BC ####[facility] Foerpjhdtk5900 [place] [id number]. Garima Pulliam IG # 0.02 10e3/ul Normal 0.00-0.03 [facility] Comment on above: Performed By: #### C BC ####[facility] Lcjpfvclty6394 [place] [address]Dr. Garima Pulliam IG % 0.2 % Normal 0.0-0.5 [facility] Comment on above: Performed By: #### C BC ####[facility] Dykslwcvnk4729 [place] [id number]. Garima Heraclio LYMPH # 2.1 103/ul Normal 1.2-3.8 [facility] Comment on above: Performed By: #### C BC ####[facility] Jumdpfbabz2213 [place] [address]Dr. Garima Heraclio Lymphocytes/100 WBC (Bld) 19.2 % Critically low 20.5-60.0 [facility] Comment on above: Performed By: #### C BC ####[facility] Kmnucnklmo3463 [place] [address]Dr. Chapisrenu Pulliam MANUAL DIFF REQ NO Normal [facility] Comment on above: Performed By: #### C BC ####[facility] Xpuutttkgt6319 [place] [id number]. Garima Heraclio MCH (RBC) [Entitic mass] 30.4 pg Normal 25.9-34.0 [facility] Comment on above: Performed By: #### C BC ####[facility] Dkjvechppp5448 [place] [address]Dr. Garima Pulliam MCHC (RBC) [Mass/Vol] 33.6 g/dL Normal 29.9-35.2 [facility] Comment on above: Performed By: #### C BC ####[facility] Kpdwmeuuew1014 [place] [address]Dr. Garima Heraclio MCV (RBC) [Entitic vol] 90.4 fL Normal 80.0-94.0 [facility] Comment on above: Performed By: #### C BC ####[facility] Efmofeeige9696 [place] [address]Dr. Garima Heraclio MONO # 0.6 103/ul Normal 0.3-0.8 [facility] Comment on above: Performed By: #### C BC ####[facility] Bujnrlsraz5496 [place] [address]Dr. Garima Heraclio Monocytes/100 WBC (Bld) 5.8 % Normal 1.7-12.0 [facility] Comment on above: Performed By: #### C BC ####[facility] Qngjrxcaze4496 [place], [place] [address]Ql. Garima Pulliam NEUT # 7.8 103/ul Critically high 1.4-6.5 [facility] Comment on above: Performed By: #### C BC ####[facility] Ahjlsxlksu4673 [place] [address]Dr. Garima Pulliam Neutrophils/100 WBC (Bld) 72.4 % Normal 43.0-75.0 [facility] Comment on above: Performed By: #### C BC ####[facility] Ddstjvfxev6140 [place] [address]Dr. Garima Pulliam Platelet mean volume (Bld) [Entitic vol] 8.7 fL Critically low 9.5-13.5 [facility] Comment on above: Performed By: #### C BC ####[facility] Eowvglzxmv1972 [place] [address]Dr. Garima Pulliam PLT 184 103/ul Normal 150-450 [facility] Comment on above: Performed By: #### C BC ####[facility] Jzcnipqhsf5798 [place], [place] [address]Vk. Garima Pulliam RBC 4.80 106/ul Normal 4.70-6.10 [facility] Comment on above: Performed By: #### C BC ####[facility] Lfzcxrbhjp3517 [place] [address]Dr. Garima Pulliam WBC 10.8 103/ul Normal 4.0-11.0 [facility] Comment on above: Performed By: #### C BC ####[facility] Lktntlbcuu5294 [place] [id number]. Garima Pulliam [facility]24 SARS-CoV-2 (COVID-19) RNA MARIE+probe Ql (Unsp spec) Not detected Normal NOT DETECTED [facility] Comment on above: Result Comment: When [...] for this test is supported by the Cardiopulmonary Supervisor of Health and Human Service's declaration that [...] be used). Performed By: #### C VDTBH ####[facility] Hhceehjppf[address] [place], [place] [address]Dr. Garima Pulliam INFLUENZA A AND B AGon 11-[facility] Normal [facility] Comment on above: Result Comment: Nega tive for Flu A protein angiten. Infection due to Flu A cannot be ruled out. Flu A angiten in the sample may be below the detection limit of the test. Performed By: #### I NFLUAB ####[facility] [address]izxqwjxd[address] [place], [place] [address]Dr. Garima Pulliam INFLUBNEGH SEE BELOW Normal [facility] Comment on above: Result Comment: Nega tive for Flu B protein antigen. Infection due to Flu B cannot be ruled out. Flu B antigen in the sample may be below the detection limit of the test. Performed By: #### I NFLUAB ####[facility] Wykyaaiujk56[address] [place], [place] [address]Dr. Garima Pulliam INFLUENZA A AG Negative Normal NEGATIVE SEE COMMENT [facility] Comment on above: Performed By: #### I NFLUAB ####[facility] Tbtfxeqety88[address] [place], [place] [address]Dr. Garima [facility] INFLUENZA B AG Negative Normal NEGATIVE SEE COMMENT [facility] Comment on above: Performed By: #### I NFLUAB ####[facility] Gyydhwoaoo[address] [place], [place] [address]Dr. Garima Pulliam PROF CHEM 8 (BAS METB)on Anion gap [Moles/Vol] 8.2 mmol/L Normal [facility] Comment on above: Performed By: #### B MP, HSTROPN, BNP ####[facility] Jgxwwzzbnp9164 [place] [address]Dr. Garima Pulliam Calcium [Mass/Vol] 8.7 mg/dL Normal 8.5-10.1 [facility] Comment on above: Performed By: #### B MP, HSTROPN, BNP ####[facility] Avuuooaiyn4259 [place] [address]Dr. Garima Pulliam Chloride [Moles/Vol] 103 mmol/L Normal 98-107 [facility] Comment on above: Performed By: #### B MP, HSTROPN, BNP ####[facility] Nciizpewlt[address] [place], [place] [address]Dr. Garima Pulliam CO2 [Moles/Vol] 29.4 mmol/L Normal 21.0-32.0 [facility] Comment on above: Performed By: #### B MP, HSTROPN, BNP ####[facility] Kgphcjvzgw[address] [place], [place] [address]Dr. Garima Pulliam Creatinine [Mass/Vol] 0.69 mg/dL Critically low 0.70-1.30 [facility] Comment on above: Performed By: #### B MP, HSTROPN, BNP ####[facility] Pvcfxhmtyb1999 [place] [address]Dr. Garima Pulliam EGFR-AF [place] >60 Normal >=60 [facility] Comment on above: Performed By: #### B MP, HSTROPN, BNP ####[facility] Obwwzgnxed[address] [place], [place] [address]Dr. Garima Pulliam EGFR-NON AF [place] >60 Normal >=60 [facility] Comment on above: Performed By: #### B MP, HSTROPN, BNP ####[facility] Rdoipspfnu2016 [place] [address]Dr. Garima Pulliam Glucose [Mass/Vol] 209 mg/dL Critically high 74-106 T [facility] Comment on above: Performed By: #### B MP, HSTROPN, BNP ####[facility] Iqqfanpryy9124 [place] [address]Dr. Garima Pulliam Potassium [Moles/Vol] 3.6 mmol/L Normal 3.5-5.1 [facility] Comment on above: Performed By: #### B MP, HSTROPN, BNP ####[facility] Xgyjipbbqb7248 [place] [address]Dr. Garima Pulliam Sodium [Moles/Vol] 137 mmol/L Normal 136-145 [facility] Comment on above: Performed By: #### B MP, HSTROPN, BNP ####[facility] Rvjtjqegeh0796 [place] [address]Dr. Garima Pulliam Urea nitrogen [Mass/Vol] 11.0 mg/dL Normal 7.0-18.0 [facility] Comment on above: Performed By: #### B MP, HSTROPN, BNP ####[facility] Kzjmilebul0410 [place] [address]Dr. Garima Pulliam Urea nitrogen/Creatinine [Mass ratio] 15.9 mg/mg Normal [facility] Comment on above: Performed By: #### B MP, HSTROPN, BNP ####[facility] Climxswbtg9761 [place] [address]Dr. Garima Pulliam TROPONIN, HIGH SENSITIVITYon 11-20-2022 HSTROP 8.7 pg/mL Normal 4.0-76.1 [facility] Comment on above: Result Comment: CUT- OFF POINTS HAVE BEEN ESTABLISHED BASED ON THE FOURTH UNIVERSAL DEFINITIONS OF MYOCARDIALINFARCTION. THE UPPER REFERENCE LIMIT (URL) OF TROPONIN, DEFINED THE 99TH PERCENTILE OFcTnI DISTRIBUTION IN A REFERENCE POPULATION, HAS BEEN CONFIRMED THE DECISION THRESHOLDFOR [place] DIAGNOSIS. Performed By: #### B MP, HSTROPN, BNP ####[facility] Kxifqsvfev3461 [place] [address]Dr. Garima Pulliam XR CHEST 1 Von 11-20-2022 XR CHEST 1 V Normal [facility] XR CHEST 1 Von 10-02-2022 XR CHEST 1 V Normal [facility] BNPon 09-29-2022 Natriuretic peptide B (Bld) [Mass/Vol] 107.0 pg/mL Normal <=900.0 [facility] Comment on above: Performed By: #### C MP, BNP, CMADM ####[facility] Dlzopqqroy5450 [place] [address]Dr. Garima Pulliam CARDIAC NASH ADMITon 022 CK [Catalytic activity/Vol] 190 U/L Normal 39-308 [facility] Comment on above: Performed By: #### C MP, BNP, CMADM ####[facility] Tnbfvznmlq9481 [place] [address]Dr. Garima Heraclio CK.MB [Mass/Vol] 11.11 ng/mL Critically high <=3.60 [facility] Comment on above: Performed By: #### C MP, BNP, CMADM ####[facility] Nhjuhjgbhb4583 [place] [address]Dr. Garima Pulliam HSTROP 11.8 pg/mL Normal 4.0-76.1 [facility] Comment on above: Result Comment: CUT- OFF POINTS HAVE BEEN ESTABLISHED BASED ON THE FOURTH UNIVERSAL DEFINITIONS OF MYOCARDIALINFARCTION. THE UPPER REFERENCE LIMIT (URL) OF TROPONIN, DEFINED THE 99TH PERCENTILE OFcTnI DISTRIBUTION IN A REFERENCE POPULATION, HAS BEEN CONFIRMED THE DECISION THRESHOLDFOR [place] DIAGNOSIS. Performed By: #### C MP, BNP, CMADM ####[facility] Ijpugbrdmw3314 [place] [address]Dr. Garima Pulliam DORIS 133 ng/mL Critically high 16-96 [facility] Comment on above: Performed By: #### C MP, BNP, CMADM ####[facility] Ryacwrfeqj8881 [place] [address]Dr. Garima Heraclio CBC AUTO DIFFon 09-29-2022 BASO # 0.0 103/ul Normal 0.0-0.1 [facility] Comment on above: Performed By: #### C BC ####[facility] Mnpwykehep6389 [place] [address]Dr. Garima Heraclio Basophils/100 WBC (Bld) 0.2 % Normal 0.2-2.0 [facility] Comment on above: Performed By: #### C BC ####[facility] Xasxinmxoa8623 [place] [id number]. Garima Pulliam EO # 0.1 103/ul Normal 0.0-0.7 [facility] Comment on above: Performed By: #### C BC ####[facility] Efautabyct2871 [place] [id number]. Garima Pulliam Eosinophils/100 WBC (Bld) 1.4 % Normal 0.9-7.0 [facility] Comment on above: Performed By: #### C BC ####[facility] Bjipmprtbm[address] [place], [place] [address]Dr. Garima Pulliam Erythrocyte distribution width (RBC) [Ratio] 13.7 % Normal 11.0-15.0 [facility] Comment on above: Performed By: #### C BC ####[facility] Bpoydnmdhx[address] [place], [place] [address]Dr. Garima Pulliam Hematocrit (Bld) [Volume fraction] 45.4 % Normal 42.0-54.0 [facility] Comment on above: Performed By: #### C BC ####[facility] Teusmmeesk[address] [place], [place] [address]Dr. Garima Pulliam Hemoglobin (Bld) [Mass/Vol] 14.8 g/dL Normal 14.0-18.0 [facility] Comment on above: Performed By: #### C BC ####[facility] Nrixktcnrd86[address] [place], [place] [address]Dr. Garima Pulliam IG # 0.04 10e3/ul Critically high 0.00-0.03 [facility] Comment on above: Performed By: #### C BC ####[facility] Bfmpxhmzce[address] [place], [place] [address]Dr. Garima Pulliam IG % 0.5 % Normal 0.0-0.5 [facility] Comment on above: Performed By: #### C BC ####[facility] Rhendsblvo[address] [place], [place] [address]Dr. Garima Pulliam LYMPH # 1.1 103/ul Critically low 1.2-3.8 The [facility] Comment on above: Performed By: #### C BC ####[facility] Ulpihpcqol3821 [place] [id number]. Garima Pulliam Lymphocytes/100 WBC (Bld) 12.7 % Critically low 20.5-60.0 [facility] Comment on above: Performed By: #### C BC ####[facility] Zwxddlywxo2641 [place] [address]Dr. Chapisrenu Pulliam MANUAL DIFF REQ NO Normal [facility] Comment on above: Performed By: #### C BC ####[facility] [address]zztbb[address] [place], [place] [address]Dr. Garima Heraclio MCH (RBC) [Entitic mass] 30.0 pg Normal 25.9-34.0 [facility] Comment on above: Performed By: #### C BC ####[facility] Lypmklbssf[address] [place], [place] [address]Dr. Garima Heraclio MCHC (RBC) [Mass/Vol] 32.6 g/dL Normal 29.9-35.2 [facility] Comment on above: Performed By: #### C BC ####[facility] Z[address]idhdazt40[address] [place], [place] [address]Dr. Garima Heraclio MCV (RBC) [Entitic vol] 91.9 fL Normal 80.0-94.0 [facility] Comment on above: Performed By: #### C BC ####[facility] Twxjmkzmhl[address] [place], [place] [address]Dr. Garima Pulliam MONO # 0.4 103/ul Normal 0.3-0.8 [facility] Comment on above: Performed By: #### C BC ####[facility] Jqztpsbbqu[address] [place], [place] [address]Dr. Chapisrenu Pulliam Monocytes/100 WBC (Bld) 4.8 % Normal 1.7-12.0 [facility] Comment on above: Performed By: #### C BC ####[facility] [address]xwgruogzs[address] [place], [place] [address]Dr. Garima Pulliam NEUT # 7.1 103/ul Critically high 1.4-6.5 [facility] Comment on above: Performed By: #### C BC ####[facility] Qqpmjogeds4828 [place], [place] [address]Qo. Garima Pulliam Neutrophils/100 WBC (Bld) 80.4 % Critically high 43.0-75.0 [facility] Comment on above: Performed By: #### C BC ####[facility] Atyujgxxlf5708 [place] [id number]. Garima Pulliam Platelet mean volume (Bld) [Entitic vol] 9.1 fL Critically low 9.5-13.5 [facility] Comment on above: Performed By: #### C BC ####[facility] Lcmzljcubq6397 [place] [id number]. Garima Pulliam PLT 200 103/ul Normal 150-450 [facility] Comment on above: Performed By: #### C BC ####[facility] Jkxhgolzep3019 [place] [id number]. Garima Pulliam RBC 4.94 106/ul Normal 4.70-6.10 [facility] Comment on above: Performed By: #### C BC ####[facility] Gcjcdpiefg8931 [address] [place] [id number]. Garima Pulliam WBC 8.9 103/ul Normal 4.0-11.0 [facility] Comment on above: Performed By: #### C BC ####[facility] Wjacddjcwn[address] [place] [id number]. Garima Pulliam Covid-19 PCR (CVDTB)on SARS-CoV-2 (COVID-19) RNA MARIE+probe Ql (Unsp spec) Not detected Normal NOT DETECTED [facility] Comment on above: Result Comment: When [...] for this test is supported by the [place] of Health and Human Service's declaration that [...] be used). Performed By: #### C VDTBH ####[facility] Iazwuiwagl[address] [place] [address]Dr. Garima Pulliam LACTATE/LACTIC ACIDon 2021 Lactate [Moles/Vol] 1.7 mmol/L Normal 0.4-1.9 [facility] Comment on above: Performed By: #### L ACT ####[facility] Qdurqnjmkn[address] [place], [place] [address]Dr. Garima Pulliam PROF 14(COMP METB)on 022 Albumin [Mass/Vol] 3.8 g/dL Normal 3.4-5.0 [facility] Comment on above: Performed By: #### C MP, BNP, CMADM ####[facility] Jdjmfsfdkf[address] [place], [place] [address]Dr. Garima Pulliam Albumin/Globulin [Mass ratio] 1.5 {ratio} Normal [facility] Comment on above: Performed By: #### C MP, BNP, CMADM ####[facility] Vgfrweknnb[address] [place] [address]Dr. Garima Pulliam ALP [Catalytic activity/Vol] 62 U/L Normal 46-116 [facility] Comment on above: Performed By: #### C MP, BNP, CMADM ####[facility] Hdclacflsz0714 [place] [address]Dr. Garima Pulliam ALT [Catalytic activity/Vol] 37 U/L Normal 16-63 [facility] Comment on above: Performed By: #### C MP, BNP, CMADM ####[facility] Euhljvqask36[address] [place] [address]Dr. Garima Pulliam Anion gap [Moles/Vol] 8.0 mmol/L Normal [facility] Comment on above: Performed By: #### C MP, BNP, CMADM ####[facility] Twfjkmaboa9898 [place] [address]Dr. Garima Pulliam AST [Catalytic activity/Vol] 20 U/L Normal 15-37 [facility] Comment on above: Performed By: #### C MP, BNP, CMADM ####[facility] Aoxukqiveb4[address] [place] [address]Dr. Garima Pulliam Bilirubin [Mass/Vol] 0.6 mg/dL Normal 0.2-1.0 [facility] Comment on above: Performed By: #### C MP, BNP, CMADM ####[facility] Numtaxnnyd6306 [place] [address]Dr. Garima Pulliam Calcium [Mass/Vol] 9.1 mg/dL Normal 8.5-10.1 [facility] Comment on above: Performed By: #### C MP, BNP, CMADM ####[facility] Xgcqjdmryc[address] [place], [place] [address]Dr. Garima Pulliam Chloride [Moles/Vol] 103 mmol/L Normal 98-107 [facility] Comment on above: Performed By: #### C MP, BNP, CMADM ####[facility] Zfvlvrfjwt[address] [place], [place] [address]Dr. Garima Pulliam CO2 [Moles/Vol] 31.8 mmol/L Normal 21.0-32.0 [facility] Comment on above: Performed By: #### C MP, BNP, CMADM ####[facility] Flreatsqag[address] [place], [place] [address]Dr. Garima Pulliam Creatinine [Mass/Vol] 0.63 mg/dL Critically low 0.70-1.30 [facility] Comment on above: Performed By: #### C MP, BNP, CMADM ####[facility] Kbxewvxtvh7[address] [place], [place] [address]Dr. Garima Pulliam EGFR-AF [place] >60 Normal >=60 [facility] Comment on above: Performed By: #### C MP, BNP, CMADM ####[facility] Spdbygbojo25[address] [place], [place] [address]Dr. Garima Pulliam EGFR-NON AF [place] >60 Normal >=60 [facility] Comment on above: Performed By: #### C MP, BNP, CMADM ####[facility] Qnweaiwxia4531 [place] [address]Dr. Garima Pulliam Globulin (S) [Mass/Vol] 2.6 g/dL Normal [facility] Comment on above: Performed By: #### C MP, BNP, CMADM ####[facility] Xrpcatacfi8146 [place] [address]Dr. Garima Pulliam Glucose [Mass/Vol] 103 mg/dL Normal 74-106 [facility] Comment on above: Performed By: #### C MP, BNP, CMADM ####[facility] Daugmbgsrf3813 [place] [address]Dr. Garima Pulliam Potassium [Moles/Vol] 3.8 mmol/L Normal 3.5-5.1 [facility] Comment on above: Performed By: #### C MP, BNP, CMADM ####[facility] Bztyhyxzzn9912 [place] [address]Dr. Garima Pulliam Protein [Mass/Vol] 6.4 g/dL Normal 6.4-8.2 [facility] Comment on above: Performed By: #### C MP, BNP, CMADM ####[facility] Gyxhswgavl5053 [place] [address]Dr. Garima Pulliam Sodium [Moles/Vol] 139 mmol/L Normal 136-145 [facility] Comment on above: Performed By: #### C MP, BNP, CMADM ####[facility] Megheyooyk2060 [place] [address]Dr. Garima Pulliam Urea nitrogen [Mass/Vol] 7.0 mg/dL Normal 7.0-18.0 [facility] Comment on above: Performed By: #### C MP, BNP, CMADM ####[facility] Mowmcntrrq6306 [place] [address]Dr. Garima Pulliam Urea nitrogen/Creatinine [Mass ratio] 11.1 mg/mg Normal [facility] Comment on above: Performed By: #### C MP, BNP, CMADM ####[facility] Crzghzgsgs8046 [place] [address]Dr. Garima Pulliam PROTIMEon 09-29-2022 INR Coag (PPP) [Relative time] 1.14 {INR} Normal [facility] Comment on above: Performed By: #### P T, PTT ####[facility] Fkxtcpopet[address] [place], [place] [address]Dr. Garima Pulliam INR GUIDELINES SEE BELOW Normal [facility] Comment on above: Result Comment: WESLEY RED INR: 2.0 - 3.0 CONDITIONS NOT LISTED BELOW 2.5 - 3.5 FOR PROSTHETIC HEART VALVE REPLACEMENT 2.5 - 3.5 RECURRENT THROMBOSIS Performed By: #### P T, PTT ####[facility] Xvoklskmyi[address] [place], [place] [address]Dr. Garima Pulliam PT Coag (PPP) [Time] 12.2 s Critically high 9.0-11.6 [facility] Comment on above: Performed By: #### P T, PTT ####[facility] Muhicujsgw[address] [place], [place] [address]Dr. Garima Pulliam PTTon 09-29-2022 aPTT Coag (Bld) [Time] 29.3 s Normal 22.3-36.2 [facility] Comment on above: Performed By: #### P T, PTT ####[facility] Bvavdtdvoc[address] [place], [place] [address]Dr. Garima Pulliam XR CHEST 1 Von 09-29-2022 XR CHEST 1 V Normal [facility] CBC AUTO DIFFon 09-26-2022 BASO # 0.0 103/ul Normal 0.0-0.1 [facility] Comment on above: Performed By: #### C BC ####[facility] Fsbslrpetg[address] [place], [place] [address]Dr. Garima Pulliam Basophils/100 WBC (Bld) 0.2 % Normal 0.2-2.0 [facility] Comment on above: Performed By: #### C BC ####[facility] Mlpncudxfn07[address] [place], [place] [address]Dr. Garima Pulliam EO # 0.1 103/ul Normal 0.0-0.7 [facility] Comment on above: Performed By: #### C BC ####[facility] Wxmbvwiyfy[address] [place], [place] [address]Dr. Garima Pulliam Eosinophils/100 WBC (Bld) 1.0 % Normal 0.9-7.0 [facility] Comment on above: Performed By: #### C BC ####[facility] Jrcvlrdaxa17[address] [place], [place] [address]Dr. Garima Pulliam Erythrocyte distribution width (RBC) [Ratio] 13.4 % Normal 11.0-15.0 [facility] Comment on above: Performed By: #### C BC ####[facility] Fukztrckop615[address] [place], [place] [address]Dr. Garima Pulliam Hematocrit (Bld) [Volume fraction] 46.3 % Normal 42.0-54.0 [facility] Comment on above: Performed By: #### C BC ####[facility] Pqozcjbdpf[address] [place], [place] [address]Dr. Garima Pulliam Hemoglobin (Bld) [Mass/Vol] 15.3 g/dL Normal 14.0-18.0 [facility] Comment on above: Performed By: #### C BC ####[facility] Hiklvqtoko7[address] [place], [place] [address]Dr. Garima Pulliam IG # 0.05 10e3/ul Critically high 0.00-0.03 [facility] Comment on above: Performed By: #### C BC ####[facility] Bbpwlgwcgf355[address] [place], [place] [address]Dr. Garima Pulliam IG % 0.4 % Normal 0.0-0.5 [facility] Comment on above: Performed By: #### C BC ####[facility] Krgxudhpds88[address] [place], [place] [address]Dr. Garima Pulliam LYMPH # 1.7 103/ul Normal 1.2-3.8 [facility] Comment on above: Performed By: #### C BC ####[facility] Rcouzgqxhy45[address] [place], [place] [address]Dr. Garima Pulliam Lymphocytes/100 WBC (Bld) 12.7 % Critically low 20.5-60.0 [facility] Comment on above: Performed By: #### C BC ####[facility] Iuwwaurpha3378 [place] [address]DrAdalberto Pulliam MANUAL DIFF REQ NO Normal [facility] Comment on above: Performed By: #### C BC ####[facility] Mdddsgtuis9007 [place] [address]Dr. Garima Pulliam MCH (RBC) [Entitic mass] 30.1 pg Normal 25.9-34.0 [facility] Comment on above: Performed By: #### C BC ####[facility] Lhjahevevo8[address] [place], [place] [address]Dr. Garima Pulliam MCHC (RBC) [Mass/Vol] 33.0 g/dL Normal 29.9-35.2 [facility] Comment on above: Performed By: #### C BC ####[facility] Wpgjmlxlng78[address] [place], [place] [address]DrAdalberto Pulliam MCV (RBC) [Entitic vol] 91.1 fL Normal 80.0-94.0 [facility] Comment on above: Performed By: #### C BC ####[facility] Ryonkcxoyr68[address] [place], [place] [address]DrAdalberto Pulliam MONO # 0.9 103/ul Critically high 0.3-0.8 [facility] Comment on above: Performed By: #### C BC ####[facility] Bopidaaati[address] [place], [place] [address]DrAdalberto Pulliam Monocytes/100 WBC (Bld) 7.0 % Normal 1.7-12.0 [facility] Comment on above: Performed By: #### C BC ####[facility] Zfvahuhqaf32[address] [place], [place] [address]DrAdalberto Pulliam NEUT # 10.4 103/ul Critically high 1.4-6.5 [facility] Comment on above: Performed By: #### C BC ####[facility] Xpsfdikoth[address] [place], [place] [address]DrAdalberto Pulliam Neutrophils/100 WBC (Bld) 78.7 % Critically high 43.0-75.0 [facility] Comment on above: Performed By: #### C BC ####[facility] Kzmysnrfiy5947 [place] [address]Dr. Garima Pulliam Platelet mean volume (Bld) [Entitic vol] 8.9 fL Critically low 9.5-13.5 [facility] Comment on above: Performed By: #### C BC ####[facility] Zlzmrbmmnx2279 [place] [address]Dr. Garima Pulliam PLT 195 103/ul Normal 150-450 [facility] Comment on above: Performed By: #### C BC ####[facility] Wawytamgco[address] [place], [place] [address]Dr. Garima Pulliam RBC 5.08 106/ul Normal 4.70-6.10 [facility] Comment on above: Performed By: #### C BC ####[facility] Cdiqxdahmz34[address] [place], [place] [address]Dr. Garima Pulliam WBC 13.2 103/ul Critically high 4.0-11.0 [facility] Comment on above: Performed By: #### C BC ####[facility] Xnermkksgo075[address] [place], [place] [address]Dr. Garima Pulliam PROF 14(COMP METB)on 022 Albumin [Mass/Vol] 3.5 g/dL Normal 3.4-5.0 [facility] Comment on above: Performed By: #### C DAVID HSTROPN ####[facility] Eguahyhcca9434 [place] [address]Dr. Garima Pulliam Albumin/Globulin [Mass ratio] 1.2 {ratio} Normal [facility] Comment on above: Performed By: #### C RAFAT HERNANDEZTROPN ####[facility] Kplhzsscan7557 [place] [address]Dr. Garima Pulliam ALP [Catalytic activity/Vol] 71 U/L Normal 46-116 [facility] Comment on above: Performed By: #### C DAVID HSTROPN ####[facility] Uxvirdezxo9262 [place] [address]Dr. Garima Pulliam ALT [Catalytic activity/Vol] 37 U/L Normal 16-63 [facility] Comment on above: Performed By: #### C DAVID, HSTROPN ####[facility] Fgakpittnz3772 [place] [address]Dr. Garima Pulliam Anion gap [Moles/Vol] 4.8 mmol/L Normal [facility] Comment on above: Performed By: #### C DAVID, HSTROPN ####[facility] Mgabamfykv[address] [place], [place] [address]Dr. Garima Pulliam AST [Catalytic activity/Vol] 21 U/L Normal 15-37 [facility] Comment on above: Performed By: #### C DAVID, HSTROPN ####[facility] Nrbwwntytk64[address] [place], [place] [address]Dr. Garima Pulliam Bilirubin [Mass/Vol] 0.3 mg/dL Normal 0.2-1.0 [facility] Comment on above: Performed By: #### C DAVID, HSTROPN ####[facility] Jxsmkeztrg3692 [place] [address]Dr. Garima Pulliam Calcium [Mass/Vol] 8.9 mg/dL Normal 8.5-10.1 [facility] Comment on above: Performed By: #### C DAVID, HSTROPN ####[facility] Akmiunurpn7413 [place] [address]Dr. Garima Pulliam Chloride [Moles/Vol] 106 mmol/L Normal 98-107 [facility] Comment on above: Performed By: #### C DAVID, HSTROPN ####[facility] Hksfwwngxy6515 [place] [address]Dr. Garima Pulliam CO2 [Moles/Vol] 29.8 mmol/L Normal 21.0-32.0 [facility] Comment on above: Performed By: #### C DAVID, HSTROPN ####[facility] Sjitchjyzt0066 [place] [address]Dr. Garima Pulliam Creatinine [Mass/Vol] 0.68 mg/dL Critically low 0.70-1.30 [facility] Comment on above: Performed By: #### C MP, HSTROPN ####[facility] Jhidaiisdd2761 [place] [address]Dr. Garima Pulliam EGFR-AF [place] >60 Normal >=60 [facility] Comment on above: Performed By: #### C MP, HSTROPN ####[facility] Kwzogsdpom2666 [place] [address]Dr. Chapislan Pulliam EGFR-NON AF [place] >60 Normal >=60 [facility] Comment on above: Performed By: #### C MP, HSTROPN ####[facility] Fxpxxekfip0486 [place] [address]Dr. Garima Pulliam Globulin (S) [Mass/Vol] 2.8 g/dL Normal [facility] Comment on above: Performed By: #### C MP, HSTROPN ####[facility] Rpcjxlwngu8712 [place] [address]Dr. Garima Pulliam Glucose [Mass/Vol] 133 mg/dL Critically high 74-106 [facility] Comment on above: Performed By: #### C MP, HSTROPN ####[facility] Uqgxcybdji2158 [place] [address]Dr. Chapisrenu Pulliam Potassium [Moles/Vol] 3.6 mmol/L Normal 3.5-5.1 [facility] Comment on above: Performed By: #### C MP, HSTROPN ####[facility] Ysqxiyituu5272 [place] [address]Dr. Chapisrenu Pulliam Protein [Mass/Vol] 6.3 g/dL Critically low 6.4-8.2 [facility] Comment on above: Performed By: #### C MP, HSTROPN ####[facility] Huphovymqm[address] [place], [place] [address]Dr. Chapisrenu Pulliam Sodium [Moles/Vol] 137 mmol/L Normal 136-145 [facility] Comment on above: Performed By: #### C MP, HSTROPN ####[facility] Niotsvcqhq[address] [place], [place] [address]Dr. Garima Pulliam Urea nitrogen [Mass/Vol] 15.0 mg/dL Normal 7.0-18.0 [facility] Comment on above: Performed By: #### C DAVID HSTROPN ####[facility] Xapipnknts4525 [place] [address]Dr. Chapisrenu Pulliam Urea nitrogen/Creatinine [Mass ratio] 22.1 mg/mg Normal [facility] Comment on above: Performed By: #### C DAVID HSTROPN ####[facility] Nfzfsbjype5865 [place] [address]Dr. Garima Heraclio TROPONIN, HIGH SENSITIVITYon 09-26-2022 HSTROP 12.8 pg/mL Normal 4.0-76.1 [facility] Comment on above: Result Comment: CUT- OFF POINTS HAVE BEEN ESTABLISHED BASED ON THE FOURTH UNIVERSAL DEFINITIONS OF MYOCARDIALINFARCTION. THE UPPER REFERENCE LIMIT (URL) OF TROPONIN, DEFINED THE 99TH PERCENTILE OFcTnI DISTRIBUTION IN A REFERENCE POPULATION, HAS BEEN CONFIRMED THE DECISION THRESHOLDFOR [place] DIAGNOSIS. Performed By: #### C DAVID HSTROPN ####[facility] Jnxwcffvqt2247 [place] [address]Dr. Chapisrenu Pulliam XR CHEST 1 Von 09-26-2022 XR CHEST 1 V Normal [facility] XR CHEST 1 Von 09-16-2022 XR CHEST 1 V Normal [facility] CBC AUTO DIFFon 09-15-2022 BASO # 0.0 103/ul Normal 0.0-0.1 [facility] Comment on above: Performed By: #### C BC ####[facility] Giogxvrayo8303 [place] [address]Dr. Garima Heraclio Basophils/100 WBC (Bld) 0.1 % Critically low 0.2-2.0 [facility] Comment on above: Performed By: #### C BC ####[facility] Zthodvkbav9815 [place] [address]Dr. Garima Pulliam EO # 0.0 103/ul Normal 0.0-0.7 [facility] Comment on above: Performed By: #### C BC ####[facility] Mafxaflseh9530 [place] [address]Dr. Garima Pulliam Eosinophils/100 WBC (Bld) 0.1 % Critically low 0.9-7.0 [facility] Comment on above: Performed By: #### C BC ####[facility] Zhgfkdxflo5891 [place] [address]Dr. Garima Pulliam Erythrocyte distribution width (RBC) [Ratio] 14.1 % Normal 11.0-15.0 [facility] Comment on above: Performed By: #### C BC ####[facility] Iqexykmbkh[address] [place], [place] [address]Dr. Garima Pulliam Hematocrit (Bld) [Volume fraction] 46.1 % Normal 42.0-54.0 [facility] Comment on above: Performed By: #### C BC ####[facility] Mdkooymxgq697[address] [place], [place] [address]Dr. Garima Pulliam Hemoglobin (Bld) [Mass/Vol] 15.0 g/dL Normal 14.0-18.0 [facility] Comment on above: Performed By: #### C BC ####[facility] Njwcvvyhlz[address] [place], [place] [address]Dr. aGrima Pulliam IG # 0.03 10e3/ul Normal 0.00-0.03 [facility] Comment on above: Performed By: #### C BC ####[facility] Jqjvmudbyy[address] [place], [place] [address]Dr. Garima Pulliam IG % 0.3 % Normal 0.0-0.5 [facility] Comment on above: Performed By: #### C BC ####[facility] Incqxdadun[address] [place], [place] [address]Dr. Garima Pulliam LYMPH # 0.6 103/ul Critically low 1.2-3.8 [facility] Comment on above: Performed By: #### C BC ####[facility] Twxemtemdh[address] [place], [place] [address]Dr. Garima Pulliam Lymphocytes/100 WBC (Bld) 5.8 % Critically low 20.5-60.0 [facility] Comment on above: Performed By: #### C BC ####[facility] Firobheltu68[address] [place] [id number]. Garima Pulliam MANUAL DIFF REQ NO Normal [facility] Comment on above: Performed By: #### C BC ####[facility] Zuzthjfccs1254 [place] [id number]. Garima Pulliam MCH (RBC) [Entitic mass] 30.2 pg Normal 25.9-34.0 [facility] Comment on above: Performed By: #### C BC ####[facility] Kzmrjgxnbh2465 [place] [address]Dr. Garima Pulliam MCHC (RBC) [Mass/Vol] 32.5 g/dL Normal 29.9-35.2 [facility] Comment on above: Performed By: #### C BC ####[facility] Mvqnebulhg7041 [place] [address]Dr. Garima Pulliam MCV (RBC) [Entitic vol] 92.8 fL Normal 80.0-94.0 [facility] Comment on above: Performed By: #### C BC ####[facility] Aoxlvixxkf3151 [place] [address]Dr. Garima Heraclio MONO # 0.3 103/ul Normal 0.3-0.8 [facility] Comment on above: Performed By: #### C BC ####[facility] Orazvudqfa2116 [place] [id number]. Garima Heraclio Monocytes/100 WBC (Bld) 3.2 % Normal 1.7-12.0 [facility] Comment on above: Performed By: #### C BC ####[facility] Ggxqfvnvku8790 [place] [id number]. Garima Pulliam NEUT # 9.8 103/ul Critically high 1.4-6.5 [facility] Comment on above: Performed By: #### C BC ####[facility] Empzcmnqju7978 [place] [address]Dr. Garima Pulliam Neutrophils/100 WBC (Bld) 90.5 % Critically high 43.0-75.0 [facility] Comment on above: Performed By: #### C BC ####[facility] Gokdbpbxxf7377 [place] [id number]. Garima Pulliam Platelet mean volume (Bld) [Entitic vol] 9.4 fL Critically low 9.5-13.5 [facility] Comment on above: Performed By: #### C BC ####[facility] Qjzmhwwzke9020 [place] [id number]. Garima Pulliam PLT 208 103/ul Normal 150-450 [facility] Comment on above: Performed By: #### C BC ####[facility] Zdibczzbej0647 [place] [address]Dr. Garima Pulliam RBC 4.97 106/ul Normal 4.70-6.10 [facility] Comment on above: Performed By: #### C BC ####[facility] Estxchxyic5496 [place] [address]Dr. Garima Pulliam WBC 10.8 103/ul Normal 4.0-11.0 [facility] Comment on above: Performed By: #### C BC ####[facility] Abusdpaeic3822 [place] [address]Dr. Garima Pulliam PROF 14(COMP METB)on 022 Albumin [Mass/Vol] 4.0 g/dL Normal 3.4-5.0 [facility] Comment on above: Performed By: #### C MP ####[facility] Zxtksuegrm7769 [place] [address]Dr. Garima Pulliam Albumin/Globulin [Mass ratio] 1.5 {ratio} Normal [facility] Comment on above: Performed By: #### C MP ####[facility] Tdcdhlimft7573 [place] [address]Dr. Garima Pulliam ALP [Catalytic activity/Vol] 73 U/L Normal 46-116 [facility] Comment on above: Performed By: #### C MP ####[facility] Plrkjdbver1383 [place] [address]Dr. Garima Pulliam ALT [Catalytic activity/Vol] 42 U/L Normal 16-63 [facility] Comment on above: Performed By: #### C MP ####[facility] Tzgyliqoxg0498 [place] [address]Dr. Garima Pulliam Anion gap [Moles/Vol] 9.1 mmol/L Normal [facility] Comment on above: Performed By: #### C MP ####[facility] Vgtmtrddzb[address] [place], [place] [address]Dr. Garima Pulliam AST [Catalytic activity/Vol] 28 U/L Normal 15-37 [facility] Comment on above: Performed By: #### C MP ####[facility] Aeafdqoald[address] [place], [place] [address]Dr. Garima Pulliam Bilirubin [Mass/Vol] 0.6 mg/dL Normal 0.2-1.0 [facility] Comment on above: Performed By: #### C MP ####[facility] Andyihynkc[address] [place], [place] [address]Dr. Garima Pulliam Calcium [Mass/Vol] 8.6 mg/dL Normal 8.5-10.1 [facility] Comment on above: Performed By: #### C MP ####[facility] Hednzpanju[address] [place], [place] [address]Dr. Garima Pulliam Chloride [Moles/Vol] 105 mmol/L Normal 98-107 [facility] Comment on above: Performed By: #### C MP ####[facility] Wubfzqqgxx[address] [place], [place] [address]Dr. Garima Pulliam CO2 [Moles/Vol] 28.5 mmol/L Normal 21.0-32.0 [facility] Comment on above: Performed By: #### C MP ####[facility] Geyaopbtgh[address] [place], [place] [address]Dr. Garima Heraclio Creatinine [Mass/Vol] 0.78 mg/dL Normal 0.70-1.30 [facility] Comment on above: Performed By: #### C MP ####[facility] Ucvvsyiuyg[address] [place], [place] [address]Dr. Chapisrenu Heraclio EGFR-AF [place] >60 Normal >=60 [facility] Comment on above: Performed By: #### C MP ####[facility] Iopmqxrbtk[address] [place], [place] [address]Dr. Garima Pulliam EGFR-NON AF [place] >60 Normal >=60 [facility] Comment on above: Performed By: #### C MP ####[facility] Poyinavzol3474 [place] [address]Dr. Garima Pulliam Globulin (S) [Mass/Vol] 2.7 g/dL Normal [facility] Comment on above: Performed By: #### C MP ####[facility] Xoujvcyuwc2589 [place] [address]Dr. Garima Pulliam Glucose [Mass/Vol] 220 mg/dL Critically high 74-106 [facility] Comment on above: Performed By: #### C MP ####[facility] Tajcjkdjxz9878 [place] [address]Dr. Garima Pulliam Potassium [Moles/Vol] 3.6 mmol/L Normal 3.5-5.1 [facility] Comment on above: Performed By: #### C MP ####[facility] Jptyhicunc[address] [place], [place] [address]Dr. Garima Pulliam Protein [Mass/Vol] 6.7 g/dL Normal 6.4-8.2 [facility] Comment on above: Performed By: #### C MP ####[facility] Qpfgumosin[address] [place], [place] [address]Dr. Garima Pulliam Sodium [Moles/Vol] 139 mmol/L Normal 136-145 [facility] Comment on above: Performed By: #### C MP ####[facility] Iwvgxxxewr[address] [place], [place] [address]Dr. Garima Pulliam Urea nitrogen [Mass/Vol] 11.0 mg/dL Normal 7.0-18.0 [facility] Comment on above: Performed By: #### C MP ####[facility] Jmnwacbulu[address] [place], [place] [address]Dr. Garima Pulliam Urea nitrogen/Creatinine [Mass ratio] 14.1 mg/mg Normal [facility] Comment on above: Performed By: #### C MP ####[facility] Hokxudlcsu[address] [place], [place] [address]Dr. Garima Pulliam CARDIAC NASH 3-6on 2 CK [Catalytic activity/Vol] 240 U/L Normal 39-308 [facility] Comment on above: Performed By: #### C MREP ####[facility] Pkuwkjameb7008 [place] [address]Dr. Garima Pulliam CK.MB [Mass/Vol] 10.38 ng/mL Critically high <=3.60 [facility] Comment on above: Performed By: #### C MREP ####[facility] Alanoxcher0831 [place] [address]Dr. Garima Pulliam HSTROP 18.5 pg/mL Normal 4.0-76.1 [facility] Comment on above: Result Comment: CUT- OFF POINTS HAVE BEEN ESTABLISHED BASED ON THE FOURTH UNIVERSAL DEFINITIONS OF MYOCARDIALINFARCTION. THE UPPER REFERENCE LIMIT (URL) OF TROPONIN, DEFINED THE 99TH PERCENTILE OFcTnI DISTRIBUTION IN A REFERENCE POPULATION, HAS BEEN CONFIRMED THE DECISION THRESHOLDFOR [place] DIAGNOSIS. Performed By: #### C MREP ####[facility] Trjackclci0581 [place] [address]Dr. Garima Pulliam CK [Catalytic activity/Vol] 257 U/L Normal 39-308 [facility] Comment on above: Performed By: #### C MREP ####[facility] Yppgotyife[address] [place], [place] [address]Dr. Garima Pulliam CK.MB [Mass/Vol] 9.89 ng/mL Critically high <=3.60 [facility] [facility] Comment on above: Performed By: #### C MREP ####[facility] [address] [place], [place] [address]Dr. Garima Pulliam HSTROP 16.9 pg/mL Normal 4.0-76.1 [facility] Comment on above: Result Comment: CUT- OFF POINTS HAVE BEEN ESTABLISHED BASED ON THE FOURTH UNIVERSAL DEFINITIONS OF MYOCARDIALINFARCTION. THE UPPER REFERENCE LIMIT (URL) OF TROPONIN, DEFINED THE 99TH PERCENTILE OFcTnI DISTRIBUTION IN A REFERENCE POPULATION, HAS BEEN CONFIRMED THE DECISION THRESHOLDFOR [place] DIAGNOSIS. Performed By: #### C MREP ####[facility] [address] [place] [address]Dr. Garima Heraclio CBC AUTO DIFFon 10-22-2022 BASO # 0.0 103/ul Normal 0.0-0.1 [facility] Comment on above: Performed By: #### C BC ####[facility] [address]gs[address] [place] [id number]. Garima Pulliam Basophils/100 WBC (Bld) 0.1 % Critically low 0.2-2.0 [facility] Comment on above: Performed By: #### C BC ####[facility] Qprrizktzk[address] [place] [address]Dr. Garima Pulliam EO # 0.0 103/ul Normal 0.0-0.7 [facility] Comment on above: Performed By: #### C BC ####[facility] [address]pt[address] [place], [place] [address]Dr. Chapisrenu Heraclio Eosinophils/100 WBC (Bld) 0.0 % Critically low 0.9-7.0 [facility] Comment on above: Performed By: #### C BC ####[facility] [address]ms[address] [place], [place] [address]Dr. Garima Pulliam Erythrocyte distribution width (RBC) [Ratio] 13.6 % Normal 11.0-15.0 [facility] Comment on above: Performed By: #### C BC ####[facility] Vbre[address] [place], [place] [address]Dr. Garima Pulliam Hematocrit (Bld) [Volume fraction] 48.2 % Normal 42.0-54.0 [facility] Comment on above: Performed By: #### C BC ####[facility] Edyomamvll[address] [place], [place] [address]Dr. Garima Pulliam Hemoglobin (Bld) [Mass/Vol] 16.0 g/dL Normal 14.0-18.0 [facility] Comment on above: Performed By: #### C BC ####[facility] P[address]rt[address] [place], [place] [address]Dr. Chapisrenu Heraclio IG # 0.02 10e3/ul Normal 0.00-0.03 [facility] Comment on above: Performed By: #### C BC ####[facility] [address]moa[address] [place] [id number]. Garima Pulliam IG % 0.3 % Normal 0.0-0.5 [facility] Comment on above: Performed By: #### C BC ####[facility] B[address]whmxxyhx[address] [place] [address]Dr. Garima Heraclio LYMPH # 0.5 103/ul Critically low 1.2-3.8 The [facility] Comment on above: Performed By: #### C BC ####[facility] [address]jfqlqhus[address] [place] [address]Dr. Garima Heraclio Lymphocytes/100 WBC (Bld) 7.7 % Critically low 20.5-60.0 [facility] Comment on above: Performed By: #### C BC ####[facility] [address] [place], [place] [address]Dr. Chapisrenu Pulliam MANUAL DIFF REQ NO Normal [facility] Comment on above: Performed By: #### C BC ####[facility] [address]qe[address] [place], [place] [address]Dr. Garima Heraclio MCH (RBC) [Entitic mass] 30.6 pg Normal 25.9-34.0 [facility] Comment on above: Performed By: #### C BC ####[facility] [address]cj[address] [place], [place] [address]Dr. Garima Pulliam MCHC (RBC) [Mass/Vol] 33.2 g/dL Normal 29.9-35.2 [facility] Comment on above: Performed By: #### C BC ####[facility] [address] [place], [place] [address]Dr. Garima Heraclio MCV (RBC) [Entitic vol] 92.2 fL Normal 80.0-94.0 [facility] Comment on above: Performed By: #### C BC ####[facility] W[address]refvhzb[address] [place], [place] [address]Dr. Garima Pulliam MONO # 0.0 103/ul Critically low 0.3-0.8 The [facility] Comment on above: Performed By: #### C BC ####[facility] [address]zq[address] [place] [id number]. Garima Pulliam Monocytes/100 WBC (Bld) 0.4 % Critically low 1.7-12.0 [facility] Comment on above: Performed By: #### C BC ####[facility] [address]rg[address] [place] [id number]. Garima Pulliam NEUT # 6.2 103/ul Normal 1.4-6.5 [facility] Comment on above: Performed By: #### C BC ####[facility] K[address]rowmp[address] [place] [address]Dr. Garima Pulliam Neutrophils/100 WBC (Bld) 91.5 % Critically high 43.0-75.0 [facility] Comment on above: Performed By: #### C BC ####[facility] A[address]imuwpnt79[address] [place] [address]Dr. Garima Pulliam Platelet mean volume (Bld) [Entitic vol] 8.7 fL Critically low 9.5-13.5 [facility] Comment on above: Performed By: #### C BC ####[facility] Pyjxkknhgo36[address] [place] [address]Dr. Garima Pulliam PLT 179 103/ul Normal 150-450 [facility] Comment on above: Performed By: #### C BC ####[facility] E[address]zcwgkt26[address] [place] [id number]. Garima Pulliam RBC 5.23 106/ul Normal 4.70-6.10 [facility] Comment on above: Performed By: #### C BC ####[facility] O[address]kerpw[address] [place] [address]Dr. Garima Pulliam WBC 6.7 103/ul Normal 4.0-11.0 [facility] Comment on above: Performed By: #### C BC ####[facility] [address]yx[address] [place] [address]Dr. Garima Pulliam PROF CHEM 8 (BAS METB)on Anion gap [Moles/Vol] 12.1 mmol/L Normal [facility] Comment on above: Performed By: #### B MP ####[facility] Torskoqqgo59[address] [place] [id number]. Garima Pulliam Calcium [Mass/Vol] 8.7 mg/dL Normal 8.5-10.1 [facility] Comment on above: Performed By: #### B MP ####[facility] [address]oh24[address] [place] [address]Dr. Garima Pulliam Chloride [Moles/Vol] 105 mmol/L Normal 98-107 [facility] Comment on above: Performed By: #### B MP ####[facility] Mqhwmqzfne5[address] [place] [address]Dr. Garima Pulliam CO2 [Moles/Vol] 25.5 mmol/L Normal 21.0-32.0 The [facility] Comment on above: Performed By: #### B MP ####[facility] T[address]xvuytn22[address] [place] [address]Dr. Garima Pulliam Creatinine [Mass/Vol] 0.63 mg/dL Critically low 0.70-1.30 [facility] Comment on above: Performed By: #### B MP ####[facility] Pqieaoswdr76[address] [place] [address]Dr. Garima Pulliam EGFR-AF [place] >60 Normal >=60 [facility] Comment on above: Performed By: #### B MP ####[facility] Xguhsmgjqh20[address] [place] [address]Dr. Garima Pulliam EGFR-NON AF [place] >60 Normal >=60 [facility] Comment on above: Performed By: #### B MP ####[facility] Bfmhgsgdeu4[address] [place] [address]Dr. Garima Pulliam Glucose [Mass/Vol] 162 mg/dL Critically high 74-106 [facility] Comment on above: Performed By: #### B MP ####[facility] [address]uc[address] [place], [place] [address]Dr. Garima Pulliam Potassium [Moles/Vol] 3.6 mmol/L Normal 3.5-5.1 [facility] Comment on above: Performed By: #### B MP ####[facility] [address]ktshsyl[address] [place], [place] [address]Dr. Garima Pulliam Sodium [Moles/Vol] 139 mmol/L Normal 136-145 [facility] Comment on above: Performed By: #### B DAVID ####[facility] Mqcqbxqpdl39[address] [place] [address]Dr. Garima Pulliam Urea nitrogen [Mass/Vol] 9.0 mg/dL Normal 7.0-18.0 [facility] Comment on above: Performed By: #### B DAVID ####[facility] Nmjztrvteu58[address] [place] [address]Dr. Garima Pulliam Urea nitrogen/Creatinine [Mass ratio] 14.3 mg/mg Normal [facility] Comment on above: Performed By: #### B DAVID ####[facility] Wtvgjrjhzp68[address] [place] [address]Dr. Chapisrenu Pulliam CARDIAC NASH ADMITon 09-12- 022 CK [Catalytic activity/Vol] 304 U/L Normal 39-308 [facility] Comment on above: Performed By: #### B NANCY HERNANDEZ ####[facility] Ibvmbckzth[address] [place] [address]Dr. Garima Pulliam CK.MB [Mass/Vol] 11.81 ng/mL Critically high <=3.60 [facility] Comment on above: Performed By: #### B NANCY HERNANDEZ ####[facility] Dbtulfusxu9[address] [place] [address]Dr. Garima Heraclio HSTROP 13.3 pg/mL Normal 4.0-76.1 [facility] Comment on above: Result Comment: CUT- OFF POINTS HAVE BEEN ESTABLISHED BASED ON THE FOURTH UNIVERSAL DEFINITIONS OF MYOCARDIALINFARCTION. THE UPPER REFERENCE LIMIT (URL) OF TROPONIN, DEFINED THE 99TH PERCENTILE OFcTnI DISTRIBUTION IN A REFERENCE POPULATION, HAS BEEN CONFIRMED THE DECISION THRESHOLDFOR [place] DIAGNOSIS. Performed By: #### B NANCY HERNANDEZ ####[facility] Yxjackzymc[address]237 [place] [address]Dr. Garima Pulliam DORIS 133 ng/mL Critically high 16-96 [facility] Comment on above: Performed By: #### B NANCY HERNANDEZ ####[facility] Cgcwmyjlgf65[address] [place] [address]Dr. Garima Pulliam CBC AUTO DIFFon 09-12-2022 BASO # 0.0 103/ul Normal 0.0-0.1 [facility] Comment on above: Performed By: #### C BC ####[facility] [address] [place], [place] [address]Dr. Garima Heraclio Basophils/100 WBC (Bld) 0.2 % Normal 0.2-2.0 [facility] Comment on above: Performed By: #### C BC ####[facility] [address] [place], [place] [address]Dr. Garima Heraclio EO # 0.2 103/ul Normal 0.0-0.7 [facility] Comment on above: Performed By: #### C BC ####[facility] E[address] [place], [place] [address]Dr. Chapisrenu Pulliam Eosinophils/100 WBC (Bld) 1.3 % Normal 0.9-7.0 [facility] Comment on above: Performed By: #### C BC ####[facility] Wnny[address] [place], [place] [address]Dr. Garima Pulliam Erythrocyte distribution width (RBC) [Ratio] 13.7 % Normal 11.0-15.0 [facility] Comment on above: Performed By: #### C BC ####[facility] [address] [place], [place] [address]Dr. Garima Pulliam Hematocrit (Bld) [Volume fraction] 46.4 % Normal 42.0-54.0 [facility] Comment on above: Performed By: #### C BC ####[facility] Ojtkrwssfo[address] [place], [place] [address]Dr. Garima Pulliam Hemoglobin (Bld) [Mass/Vol] 15.7 g/dL Normal 14.0-18.0 [facility] Comment on above: Performed By: #### C BC ####[facility] Fevkdzxvee[address] [place], [place] [address]Dr. Garima Pulliam IG # 0.04 10e3/ul Critically high 0.00-0.03 [facility] Comment on above: Performed By: #### C BC ####[facility] Yrjixzndqp41[address] [place] [id number]. Garima Pulliam IG % 0.3 % Normal 0.0-0.5 [facility] Comment on above: Performed By: #### C BC ####[facility] V[address]opdwtqu77[address] [place] [address]Dr. Garima Pulliam LYMPH # 1.7 103/ul Normal 1.2-3.8 [facility] Comment on above: Performed By: #### C BC ####[facility] Trhhutyqfh0830 [place] [address]Dr. Garima Pulliam Lymphocytes/100 WBC (Bld) 11.5 % Critically low 20.5-60.0 [facility] Comment on above: Performed By: #### C BC ####[facility] Sfgezxjfpp36[address] [place] [address]Dr. Garima Pulliam MANUAL DIFF REQ NO Normal [facility] Comment on above: Performed By: #### C BC ####[facility] Ppyfayqtwo01[address] [place] [address]Dr. Garima Pulliam MCH (RBC) [Entitic mass] 31.0 pg Normal 25.9-34.0 [facility] Comment on above: Performed By: #### C BC ####[facility] Ltjptzrazj3265 [place] [address]Dr. Garima Pulliam MCHC (RBC) [Mass/Vol] 33.8 g/dL Normal 29.9-35.2 [facility] Comment on above: Performed By: #### C BC ####[facility] Yltczhwdpv5605 [place] [address]Dr. Garima Pulliam MCV (RBC) [Entitic vol] 91.7 fL Normal 80.0-94.0 [facility] Comment on above: Performed By: #### C BC ####[facility] Hhxgystfdk0872 [place] [address]Dr. Garima Heraclio MONO # 0.8 103/ul Normal 0.3-0.8 [facility] Comment on above: Performed By: #### C BC ####[facility] Bsxhtpmqwx20[address] [place] [address]Dr. Garima Pulliam Monocytes/100 WBC (Bld) 5.2 % Normal 1.7-12.0 [facility] Comment on above: Performed By: #### C BC ####[facility] Uazemwlbkc7827 [place] [address]Dr. Garima Pulliam NEUT # 11.7 103/ul Critically high 1.4-6.5 [facility] Comment on above: Performed By: #### C BC ####[facility] Anuhymsove9056 [place] [address]Dr. Garima Pulliam Neutrophils/100 WBC (Bld) 81.5 % Critically high 43.0-75.0 [facility] Comment on above: Performed By: #### C BC ####[facility] Khsyefnlxa5[address] [place] [address]Dr. Garima Pulliam Platelet mean volume (Bld) [Entitic vol] 8.6 fL Critically low 9.5-13.5 [facility] Comment on above: Performed By: #### C BC ####[facility] Gnrtabhflv5601 [place] [address]Dr. Garima Pulliam PLT 191 103/ul Normal 150-450 [facility] Comment on above: Performed By: #### C BC ####[facility] [address] [place], [place] [address]Dr. Garima Pulliam RBC 5.06 106/ul Normal 4.70-6.10 [facility] Comment on above: Performed By: #### C BC ####[facility] [address] [place], [place] [address]Dr. Garima Pulliam WBC 14.4 103/ul Critically high 4.0-11.0 [facility] Comment on above: Performed By: #### C BC ####[facility] [address] [place], [place] [address]Dr. Garima Pulliam [facility] SARS-CoV-2 (COVID-19) RNA MARIE+probe Ql (Unsp spec) Not detected Normal NOT DETECTED [facility] Comment on above: Result Comment: When [...] for this test is supported by the Cardiopulmonary Supervisor of Health and Human Service's declaration that [...] be used). Performed By: #### C VDTBH ####[facility] [address]jiqi[address]jma[address] [place], [place] [address]Dr. Garima Pulliam LACTATE/LACTIC ACIDon 2021 Lactate [Moles/Vol] 1.0 mmol/L Normal 0.4-1.9 [facility] Comment on above: Performed By: #### L ACT ####[facility] K[address]bgbrzso[address] [place], [place] [address]Dr. Garima Pulliam PROF CHEM 8 (BAS METB)on Anion gap [Moles/Vol] 11.6 mmol/L Normal [facility] Comment on above: Performed By: #### B NANCY HERNANDEZ ####[facility] Hgxsictxgy8[address] [place] [address]Dr. Garima Pulliam Calcium [Mass/Vol] 9.2 mg/dL Normal 8.5-10.1 [facility] Comment on above: Performed By: #### B NANCY HERNANDEZ ####[facility] Tjdnuuswxh9746 [place] [address]Dr. Garima Pulliam Chloride [Moles/Vol] 105 mmol/L Normal 98-107 [facility] Comment on above: Performed By: #### B MP, CMADM ####[facility] Gffucattdn4[address] [place] [address]Dr. Garima Pulliam CO2 [Moles/Vol] 25.9 mmol/L Normal 21.0-32.0 [facility] Comment on above: Performed By: #### B DAVID, CMADM ####[facility] Loxavxexgn46[address] [place] [address]Dr. Garima Pulliam Creatinine [Mass/Vol] 0.72 mg/dL Normal 0.70-1.30 [facility] Comment on above: Performed By: #### B DAVID, CMADM ####[facility] Xhmrwbvmfb3076 [place] [address]Dr. Garima Pulliam EGFR-AF [place] >60 Normal >=60 [facility] Comment on above: Performed By: #### B DAVID, CMADM ####[facility] Z[address]hrnjtfhr5[address] [place] [address]Dr. Chapisrenu Pulliam EGFR-NON AF [place] >60 Normal >=60 [facility] Comment on above: Performed By: #### B DAVID, CMAANA ROSA ####[facility] Dqvxforwsl0401 [place] [address]Dr. Garima Pulliam Glucose [Mass/Vol] 111 mg/dL Critically high 74-106 [facility] Comment on above: Performed By: #### B DAVID, CMADM ####[facility] Fbumeyftgm9650 [place] [address]Dr. Chapisrenu Pulliam Potassium [Moles/Vol] 3.5 mmol/L Normal 3.5-5.1 [facility] Comment on above: Performed By: #### B DAVID, CMADM ####[facility] Gifowvbaxa6[address] [place] [address]Dr. Chapisrenu Pulliam Sodium [Moles/Vol] 139 mmol/L Normal 136-145 [facility] Comment on above: Performed By: #### B DAVID, CMADM ####[facility] Rqbmtxvaer1836 [place] [address]Dr. Garima Pulliam Urea nitrogen [Mass/Vol] 7.0 mg/dL Normal 7.0-18.0 [facility] Comment on above: Performed By: #### B DAVID, CMADM ####[facility] S[address]uteuf37[address] [place], [place] [address]Hy. Garima Pulliam Urea nitrogen/Creatinine [Mass ratio] 9.7 mg/mg Normal [facility] Comment on above: Performed By: #### B MP, CMADM ####[facility] Iublmmfuti3416 [place], [place] [address]Oa. Garima Pulliam XR CHEST 1 Von 09-12-2022 XR CHEST 1 V Normal [facility] Encounters Encounter Date Encounter Type Care [...] Facility:H1 Payers Date Payer Category Payer Unknown [id number] 1960 Medicaid [id number] 1960 Unknown [id number] 1960 Unknown [id number] 1955 Unknown [id number] 2.16.84 0.1.717506.3.579.2.593 1954 Unknown [id number] 2.16.84 0.1.355197.3.579.2.593 1954 Unknown [id number] 2.16.84 0.1.520060.3.579.2.593 1954 Unknown [id number] 2.16.84 0.1.916960.3.579.2.593 1954 Unknown [id number] 2.16.84 0.1.042139.3.579.2.593 1954 Unknown [id number] 2.16.84 0.1.347036.3.579.2.593 1954 Unknown [id number] 2.16.84 0.1.687767.3.579.2.593 1954 Unknown [id number] 2.16.84 0.1.454252.3.579.2.593 1954 Unknown [id number] 2.16.84 0.1.879832.3.579.2.593 1954 Unknown [id number] 2.16.84 0.1.258723.3.579.2.593 1954 Unknown [id number] 2.16.84 0.1.992123.3.579.2.593 1954 Unknown [id number] 2.16.84 0.1.398620.3.579.2.593 1954 Unknown [id number] 2.16.84 0.1.316204.3.579.2.593 1954 Unknown [id number] 2.16.84 0.1.996602.3.579.2.593 1954 Unknown [id number] 2.16.84 0.1.160398.3.579.2.593 1954 Unknown [id number] 2.16.84 0.1.936702.3.579.2.593 1954 Unknown [id number] 2.16.84 0.1.409774.3.579.2.593 1954 Unknown [id number] 2.16.84 0.1.309445.3.579.2.593 1954 Unknown [id number] 2.16.84 0.1.026931.3.579.2.593 1954 Unknown [id number] 2.16.84 0.1.500090.3.579.2.593 Summary Purpose Family History No Family History Records Found Advance Directives No Advanced Directives Records Found Additional Source Comments (unrecognized sect ion and content) No Status Records Found INFORMATION SOURCE (unrecogn ized section and content) DATE CREATED AUTHOR 04/08/2023 [facility] FOR RECORDS PERTAINING TO PATIENTS WHO ARE [...] BE BASED ON THE PRIMARY CLINICAL RECORDS. [facility] [employer] [facility]. provides no warranty or guarantee of the accuracy or completeness of information in this document.
[2025-01-02] MEDS: MORPHINE SULFATE 2 MG/ML SYRINGE IV (08:50)
[2025-01-02 09:00] LABS: Basophils Percent Auto 0.2 % (0.2-2.0); Eosinophils Absolute Auto 0.1 10^3/uL (0.0-0.7); Eosinophils Percent Auto 1.9 % (0.9-7.0); Hematocrit 42.4 % (42.0-54.0); Hemoglobin 14.6 g/dL (14.0-18.0); Immature Granulocytes Abs Auto 0.01 10^3/uL (0.00-0.03); Immature Granulocytes Pct Auto 0.2 % (0.0-0.5); Lymphocytes Absolute Auto 1.3 10^3/uL (1.2-3.8); Lymphocytes Percent Auto 21.8 % (20.5-60.0); Mean Corpuscular HGB Conc 34.4 g/dL (29.9-35.2); Mean Corpuscular Hemoglobin 29.7 pg (25.9-34.0); Mean Corpuscular Volume 86.2 fL (80.0-94.0); Mean Platelet Volume 9.3 fL (9.5-13.5); Monocytes Absolute Auto 0.4 10^3/uL (0.3-0.8); Monocytes Percent Auto 6.2 % (1.7-12.0); Neutrophils Absolute Auto 4.1 10^3/uL (1.4-6.5); Neutrophils Percent Auto 69.7 % (43.0-75.0); Platelet Count 217 10^3/uL (150-450); Red Blood Count 4.92 10^6/uL (4.70-6.10); Red Cell Distribution Width 12.9 % (11.0-15.0); White Blood Count 5.9 10^3/uL (4.0-11.0)
[2025-01-02 09:19] LABS: INR 1.19; Prothrombin Time 12.4 sec (9.0-11.6)
[2025-01-02 09:22] LABS: Troponin I High Sensitivity 16.9 pg/mL (4.0-76.1)
[2025-01-02 09:26] LABS: Alanine Aminotransferase 32 U/L (16-63); Albumin Globulin Ratio 1.3; Albumin Level 3.5 g/dL (3.4-5.0); Alkaline Phosphatase 73 U/L (46-116); Anion Gap 10.3; Aspartate Amino Transferase 22 U/L (15-37); BUN Creatinine Ratio 10.1; Bilirubin Total 0.6 mg/dL (0.2-1.0); Calcium 9.7 mg/dL (8.5-10.1); Chloride 97 mmol/L (98-107); Estimated GFR (African America >60 (>=60 mL/min/1.73m^2); Estimated GFR (Non-African Ame >60 (>=60 mL/min/1.73m^2); Globulin 2.6 g/dL; Glucose 230 mg/dL (74-106); Potassium 3.3 mmol/L (3.5-5.1); Sodium 137 mmol/L (136-145); Total Protein 6.1 g/dL (6.4-8.2)
[2025-01-02 09:56] LABS: Bilirubin Urine NEGATIVE (NEGATIVE); Blood Urine LARGE (NEGATIVE); Clarity Urine CLEAR (CLEAR); Color Urine LT. YELLOW (YELLOW); Glucose Urine UA 500 mg/dL (NEGATIVE); Ketones Urine NEGATIVE (NEGATIVE); Leukocyte Esterase Urine NEGATIVE (NEGATIVE); Nitrite Urine NEGATIVE (NEGATIVE); Protein Urine NEGATIVE (NEG/TRACE); Specific Gravity Urine <=1.005 (1.005-1.025); Urobilinogen Urine 0.2 EU/dL (0.2-1.0); pH Urine 6.5 (5.0-9.0)
[2025-01-02 10:09] LABS: Bacteria Urine TRACE #/HPF (NONE SEEN); Cast Seen? NONE SEEN #/LPF (NONE SEEN); Crystals Seen? None Seen #/HPF (None Seen); Mucus Urine NONE SEEN (NONE SEEN); RBC Urine 20-50 #/HPF (0-2); Squamous Epithelial Cell Urine RARE #/LPF (NONE/RARE); Urine Culture Indicated NO; WBC Urine 0-2 #/HPF (NONE SEEN)
--- NOTE | 2025-01-02 10:13 | CT_ITS ---
[address] [address] Patient Name: CONSTANZA BARRETO MRN: [id number] date: 1955 Sex: M Assigned Patient Location: ER Current Patient Location: ER Accession/Order Number: [id number] Exam Date: 01/02/2025 10:11 Report Date: 01/02/2025 10:51 At the request of: MITCH CASTRO Procedure: CT abdomen pelvis wo con EXAMINATION: CT abdomen pelvis wo con HISTORY: back pain and left flank COMPARISON: 12/28/2024 TECHNIQUE: Axial, Coronal, and Sagittal images were created without IV contrast. Dose reduction techniques were achieved by using automated exposure control and/or adjustment of mA and/or kV according to patient size and/or use of iterative reconstruction technique. FINDINGS: LUNG BASES: No visible pulmonary or pleural disease. LIVER: No enlargement, atrophy, abnormal density, or significant focal lesion. BILIARY: No dilatation or calcification. PANCREAS: Extensive chronic calcific pancreatitis with marked dilatation of the pancreatic duct. No definite focal mass or inflammatory changes to suggest acute process SPLEEN: No enlargement or focal lesion. ADRENALS: Bilateral low density adrenal nodules KIDNEYS: [Nonobstructing nephrolithiasis. No obstructive uropathy BOWEL/MESENTERY: No visible mass, obstruction, or bowel wall thickening. Some mild fluid filling of small bowel loops, nonspecific. No differential bowel dilation to suggest obstruction AORTA/VASCULAR: No aortic aneurysm. Extensive calcific atherosclerosis RETROPERITONEUM: No mass or adenopathy. LYMPH NODES: No adenopathy. URINARY BLADDER: No visible focal wall thickening, lesion, or calculus. PELVIC ORGANS: No visible mass. Pelvic organs appropriate for patient age. ABDOMINAL WALL: No mass or hernia. BONES: No bony lesion or fracture. OTHER: Negative. CT/CT abdomen pelvis wo con IMPRESSION: Nonobstructing nephrolithiasis. Electronically authenticated by: REGINALDO JAIN Date: 01/02/2025 10:51
[2025-01-02 10:31] VITALS: BP 200/90
[2025-01-02] MEDS: LOSARTAN POTASSIUM 50 MG TABLET 100 MG PO (10:44)
[2025-01-02] MEDS: OXYCODONE HCL/ACETAMINOPHEN 5MG/325MG 1 TAB PO (11:08)
[2025-01-02 11:10] VITALS: BP 179/102; PULSE 68; O2SAT 94
[2025-01-02] MEDS: IPRATROPIUM/ALBUTEROL SULFATE 3 ML AMPUL.NEB IH (11:28)
[2025-01-02 11:29] VITALS: PULSE 67; O2SAT 94
--- NOTE | 2025-01-02 11:52 | ED_ITS ---
HPI - SOB/Dyspnea General Chief Complaint: Shortness of Breath/Dyspnea Stated Complaint: LOWER BACK PAIN, SOB Time Seen by Provider: 01/02/25 08:33 Source: patient Mode of arrival: Wheelchair Limitations: no limitations History of Present Illness HPI Narrative: The patient is coming to the ER with a concern for left-sided flank pain, he is very well-known to us who presents with a history of COPD and for him he does not have any acute shortness of breath or any new changes in his breathing, the patient main concern that he has been having left flank pain not radiating not associated with any numbness tingling or any other concerns The patient pain started last night and there was no preceding or precipitating factor There is no numbness tingling down his legs Related Data Home Medications ?Medication ?Instructions ?Recorded ?Confirmed albuterol sulfate 90 mcg/actuation 2 inh inhalation Q6H PRN shortness 03/13/24 01/02/25 aerosol inhaler of breath or wheezing Previous Rx's ?Medication ?Instructions ?Recorded losartan 100 mg tablet 100 mg PO DAILY #30 tabs 12/27/23 prednisone 20 mg tablet See Rx Instructions .Route 09/21/24 .COMPLEX #12 tabs albuterol sulfate 2.5 mg/0.5 mL 2.5 mg (0.5 mL) inhalation Q4H PRN 10/02/24 solution for nebulization shortness of breath or wheezing #30 ea hydrocodone 5 mg-acetaminophen 325 1 tab PO Q4H PRN pain #10 tabs 11/11/24 mg tablet ketorolac 10 mg tablet 10 mg PO Q8H PRN pain 1 day #10 11/11/24 tabs metformin 500 mg tablet 500 mg PO BID #30 tabs 11/11/24 ondansetron 4 mg disintegrating 4 mg PO Q4H PRN nausea and 11/11/24 tablet vomiting 3 days #6 tabs tamsulosin 0.4 mg capsule (Flomax) 0.4 mg PO DAILY 7 days #7 caps 11/11/24 tamsulosin 0.4 mg capsule (Flomax) 0.4 mg PO DAILY #14 caps 11/12/24 ipratropium 0.5 mg-albuterol 3 mg 3 ml inhalation Q4H PRN shortness 12/10/24 (2.5 mg base)/3 mL nebulization of breath #90 mL soln albuterol sulfate 2.5 mg/3 mL 2.5 mg (3 mL) inhalation Q6H PRN 12/24/24 (0.083 %) solution for nebulization shortness of breath or wheezing #90 mL losartan 100 mg tablet (Cozaar) 100 mg PO DAILY #30 tabs 12/24/24 dicyclomine 10 mg capsule 10 mg PO QID PRN abdominal pain 12/28/24 #20 caps ondansetron 4 mg disintegrating 4 mg PO Q6H PRN nausea and 12/28/24 tablet vomiting #20 tabs albuterol sulfate 90 mcg/actuation 2 inh inhalation QID PRN shortness 01/02/25 aerosol inhaler of breath or wheezing #8.5 grams losartan 100 mg tablet 100 mg PO DAILY #10 tabs 01/02/25 meloxicam 7.5 mg tablet 7.5 mg PO DAILY PRN pain #10 tabs 01/02/25 oxycodone-acetaminophen 5 mg-325 1 tab PO Q12H PRN pain 3 days #6 01/02/25 mg tablet (Percocet) tabs tamsulosin 0.4 mg capsule (Flomax) 0.4 mg PO DAILY #10 caps 01/02/25 Allergies Allergy/AdvReac Type Severity Reaction Status Date / Time No Known Drug Allergies Allergy Verified 01/02/25 08:18 Review of Systems ROS Status of ROS 10 or more systems reviewed and unremark able except as noted in history and below [facility] Medical History (Updated 01/02/25 @ 11:09 by Mariam Wan MD) Hypokalemia ?E87.6 - Hypokalemia (ICD-10) New onset type 2 diabetes mellitus ?E11.9 - Type 2 diabetes mellitus without complications (ICD-10) Lower extremity edema ?R60.0 - Localized edema (ICD-10) Edema ?R60.9 - Edema, unspecified (ICD-10) Acute hyperglycemia ?R73.9 - Hyperglycemia, unspecified (ICD-10) Tobacco abuse ?Z72.0 - Tobacco use (ICD-10) HTN (hypertension) ?I10 - Essential (primary) hypertension (ICD-10) Community acquired pneumonia ?J18.9 - Pneumonia, unspecified organism (ICD-10) Chronic obstructive pulmonary disease ?J44.9 - Chronic obstructive pulmonary disease, unspecified (ICD-10) Acute exacerbation of chronic obstructive pulmonary disease (COPD) ?J44.1 - Chronic obstructive pulmonary disease with (acute) exacerbation (ICD-10) RLL pneumonia ?J18.9 - Pneumonia, unspecified organism (ICD-10) COPD (chronic obstructive pulmonary disease) ?J44.9 - Chronic obstructive pulmonary disease, unspecified (ICD-10) Surgical History (Updated 01/29/24 @ 06:45 by Latonia Martin RN) Hx of tonsillectomy ?Z90.89 - Acquired absence of other organs (ICD-10) Family History (Updated 12/25/23 @ 21:28 by Kym Ordaz) Mother Family history of cancer Family history of hypertension Father Family history of cancer Social History Within the past year, how often did you have a drink containing alcohol: 4 or more times a week Within the past year, how many standard drinks containing alcohol did you have on a typical day: 3 or 4 Within the past year, how often did you have six or more drinks on one occasion: less than monthly Total score: 3 Score interpretation: A score of 4 or more indicates drinking is likely to affect patient's safety. Smoking status: Current every day smoker Non-prescribed substance use: cannabis (any form) Previous occupational history: retired Highest level of school completed/degree received: high school graduate Are you now , , , , never or living with a partner: In a typical week, how many times do you talk on the telephone with family, friends, or neighbors: twice per week How often do you get together with friends or relatives: once per week How often do you attend latter-day or adventist services: never Do you belong to any clubs or organizations such as latter-day groups unions, fraternal or athletic groups, or school groups: no Total score: 1 Score interpretation: A score of less than or equal to 1 indicates the most socially isolated. Little interest or pleasure in doing things: not at all Feeling down, depressed, or hopeless: not at all Feel stressed/tense/nervous/anxious/difficulty sleeping: not at all Do you think of yourself as: straight/heterosexual Gender Identity: male Exam Narrative Exam Narrative: Nurses notes and vital signs reviewed and patient is not hypoxic. General: Well-appearing and in no apparent distress. Skin: Warm, dry, no pallor noted. No rash. Head: Normocephalic, atraumatic. Neck: Supple, non-tender. Eye: Pupils are equal, round and EOMI. No scleral icterus. Cardiovascular: Regular Rate and Rhythm without murmur, gallop or rub. Respiratory: Distant breathing sound bilaterally Back: No midline thoracic or lumbar vertebral tenderness. Left flank pain and tenderness Musculoskeletal: normal ROM, no calf or popliteal tenderness, no lower extremity edema/swelling GI: Abdomen is soft, non-distended. Normal bowel sounds. No masses appreciated. No tenderness to palpation. No rebound, guarding, or rigidity noted. Neurological: A&O x4. No cranial nerve dysfunction observed. Constitutional Vital Signs, click to edit/add: Last Vital Signs Temp 97.5 F L 01/02/25 08:19 Pulse 67 01/02/25 11:29 Resp 18 01/02/25 11:29 BP 179/102 H 01/02/25 11:10 Pulse Ox 94 L 01/02/25 11:29 O2 Del Method Room Air 01/02/25 11:29 Course Vital Signs Vital signs: Vital Signs Temperature 97.5 F L 01/02/25 08:19 Pulse Rate 84 01/02/25 08:19 Respiratory Rate 24 H 01/02/25 08:19 Blood Pressure 200/100 H 01/02/25 08:19 Pulse Oximetry 95 01/02/25 08:19 Oxygen Delivery Method Room Air 01/02/25 08:19 Temperature 97.5 F L 01/02/25 08:19 Pulse Rate 67 01/02/25 11:29 Respiratory Rate 18 01/02/25 11:29 Blood Pressure 179/102 H 01/02/25 11:10 Pulse Oximetry 94 L 01/02/25 11:29 Oxygen Delivery Method Room Air 01/02/25 11:29 MDM - SOB/Dyspnea MDM Narrative Medical decision making narrative: The patient CBC and chemistry showed no acute pathology Except for mild hypokalemia After reviewing the patient last CAT scan that showed that he have kidney stone the patient had a CAT scan without contrast just to make sure he does not have any hydronephrosis CAT scan abdomen pelvis showed that the patient have nephrolithiasis but with no obstruction White note the patient was started on Flomax also had his losartan refilled and referred to primary care doctor as outpatient He also was provided initially with Toradol and morphine here for pain control discharged home with Percocet and Mobic for pain Urinalysis showed no UTI The patient is to follow up with primary care physician in next 2-3 days or to return to the emergency department should any of the signs or symptoms worsen or new symptoms develop. The patient agrees with the following Diagnosis and Treatment plan and the patient will be discharged home. Lab Data Labs: Lab Results 01/02/25 01/02/25 Range/Units 08:45 09:45 WBC 5.9 (4.0-11.0) 10^3/uL RBC 4.92 (4.70-6.10) 10^6/uL Hgb 14.6 (14.0-18.0) g/dL Hct 42.4 (42.0-54.0) % MCV 86.2 (80.0-94.0) fL MCH 29.7 (25.9-34.0) pg MCHC 34.4 (29.9-35.2) g/dL RDW 12.9 (11.0-15.0) % Plt Count 217 (150-450) 10^3/uL MPV 9.3 L (9.5-13.5) fL Neut % (Auto) 69.7 (43.0-75.0) % Lymph % (Auto) 21.8 (20.5-60.0) % Sebastian % (Auto) 6.2 (1.7-12.0) % Eos % (Auto) 1.9 (0.9-7.0) % Baso % (Auto) 0.2 (0.2-2.0) % Neut # (Auto) 4.1 (1.4-6.5) 10^3/uL Lymph # (Auto) 1.3 (1.2-3.8) 10^3/uL Sebastian # (Auto) 0.4 (0.3-0.8) 10^3/uL Eos # (Auto) 0.1 (0.0-0.7) 10^3/uL Baso # (Auto) 0.0 (0.0-0.1) 10^3/uL Abs Immat Gran (auto) 0.01 (0.00-0.03) 10^3/uL Imm/Tot Granulo (auto) 0.2 (0.0-0.5) % PT 12.4 H (9.0-11.6) sec INR 1.19 Sodium 137 (136-145) mmol/L Potassium 3.3 L (3.5-5.1) mmol/L Chloride 97 L (98-107) mmol/L Carbon Dioxide 33.0 H (21.0-32.0) mmol/L Anion Gap 10.3 BUN 7.0 (7.0-18.0) mg/dL Creatinine 0.69 L (0.70-1.30) mg/dL Est GFR ( Amer) >60 (>=60 mL/min/1.73m^2) Est GFR (Non-Af Amer) >60 (>=60 mL/min/1.73m^2) BUN/Creatinine Ratio 10.1 Glucose 230 H (74-106) mg/dL Calcium 9.7 (8.5-10.1) mg/dL Total Bilirubin 0.6 (0.2-1.0) mg/dL AST 22 (15-37) U/L ALT 32 (16-63) U/L Alkaline Phosphatase 73 (46-116) U/L Troponin I High Sens 16.9 (4.0-76.1) pg/mL Total Protein 6.1 L (6.4-8.2) g/dL Albumin 3.5 (3.4-5.0) g/dL Globulin 2.6 g/dL Albumin/Globulin Ratio 1.3 Urine Color Lt. yellow (YELLOW) Urine Clarity Clear (CLEAR) Urine pH 6.5 (5.0-9.0) Ur Specific [place] <=1.005 A (1.005-1.025) Urine Protein Negative (NEG/TRACE) mg/dL Urine Glucose (UA) 500 A (NEGATIVE) mg/dL Urine Ketones Negative (NEGATIVE) mg/dL Urine Occult Blood Large A (NEGATIVE) Urine Nitrite Negative (NEGATIVE) Urine Bilirubin Negative (NEGATIVE) Urine Urobilinogen 0.2 (0.2-1.0) EU/dL Ur Leukocyte Esterase Negative (NEGATIVE) Urine RBC 20-50 A (0-2) #/HPF Urine WBC 0-2 A (NONE SEEN) #/HPF Ur Squamous Epith Cells Rare (NONE/RARE) #/LPF Urine Crystals None seen (None Seen) #/HPF Urine Bacteria Trace A (NONE SEEN) #/HPF Urine Casts None seen (NONE SEEN) #/LPF Urine Mucus None seen (NONE SEEN) Ur Culture Indicated? No Discharge Plan Discharge Chief Complaint: Shortness of Breath/Dyspnea Clinical Impression: Flank pain, Kidney stone, Benign essential HTN Patient Disposition: Home, Self-Care Time of Disposition Decision: 11:09 Condition: Good Prescriptions / Home Meds: New losartan 100 mg tablet 100 mg PO DAILY Qty: 10 0RF tamsulosin [Flomax] 0.4 mg capsule 0.4 mg PO DAILY Qty: 10 0RF meloxicam 7.5 mg tablet 7.5 mg PO DAILY PRN (Reason: pain) Qty: 10 0RF oxycodone-acetaminophen [Percocet] 5-325 mg tablet 1 tab PO Q12H PRN (Reason: pain) 3 Days Qty: 6 0RF albuterol sulfate 90 mcg/actuation HFA aerosol inhaler 2 inh inhalation QID PRN (Reason: shortness of breath or wheezing) Qty: 8.5 0RF No Action losartan 100 mg tablet 100 mg PO DAILY Qty: 30 11RF albuterol sulfate 90 mcg/actuation HFA aerosol inhaler 2 inh inhalation Q6H PRN (Reason: shortness of breath or wheezing) prednisone 20 mg tablet See Rx Instructions .ROUTE .COMPLEX Qty: 12 0RF Rx Instructions: 3 tabs daily for 2 days, then 2 tabs daily for 2 days, then 1 tab daily for 2 days albuterol sulfate 2.5 mg/0.5 mL solution for nebulization 2.5 mg inhalation Q4H PRN (Reason: shortness of breath or wheezing) Qty: 30 2RF dicyclomine 10 mg capsule 10 mg PO QID PRN (Reason: abdominal pain) Qty: 20 0RF ondansetron 4 mg tablet,disintegrating 4 mg PO Q6H PRN (Reason: nausea and vomiting) Qty: 20 0RF hydrocodone-acetaminophen 5-325 mg tablet 1 tab PO Q4H PRN (Reason: pain) Qty: 10 0RF ketorolac 10 mg tablet 10 mg PO Q8H PRN (Reason: pain) 1 Days Qty: 10 0RF tamsulosin [Flomax] 0.4 mg capsule 0.4 mg PO DAILY 7 Days Qty: 7 0RF ondansetron 4 mg tablet,disintegrating 4 mg PO Q4H PRN (Reason: nausea and vomiting) 3 Days Qty: 6 0RF metformin 500 mg tablet 500 mg PO BID Qty: 30 0RF tamsulosin [Flomax] 0.4 mg capsule 0.4 mg PO DAILY Qty: 14 0RF ipratropium-albuterol 0.5 mg-3 mg(2.5 mg base)/3 mL solution for nebulization 3 ml inhalation Q4H PRN (Reason: shortness of breath) Qty: 90 0RF Rx Instructions: until breathing returns to target peak flow/parameters losartan [Cozaar] 100 mg tablet 100 mg PO DAILY Qty: 30 0RF albuterol sulfate 2.5 mg /3 mL (0.083 %) solution for nebulization 2.5 mg inhalation Q6H PRN (Reason: shortness of breath or wheezing) Qty: 90 1RF Print Language: Armenian Instructions: Kidney Stones (ED), Chronic Abdominal Pain (DC) Referrals: SERG DUENAS [Primary Care Provider] - 1 week Discharge Date/Time: 01/02/25 11:51
== END 2025-01-02 11:51 | disposition home or self-care (01) ==
PROVIDERS: Emergency Provider Emergency Medicine
DX: R10.9 Unspecified abdominal pain (principal); N20.0 Calculus of kidney; I10 Essential (primary) hypertension; J44.9 Chronic obstructive pulmonary disease, unspecified; F17.200 Nicotine dependence, unspecified, uncomplicated; E87.6 Hypokalemia
CPT/HCPCS: 36415; 74176; 80053; 81001; 84484; 85025; 85610; 94640; 96374; 99284; J2270

== ENCOUNTER 2025-01-19 21:40 | Emergency (ER) | payer MEDICARE, SELFPAY ==
--- OUTSIDE RECORDS SUMMARY | 2025-01-19 21:45 | XMS_ITS | CCD ---
Author Organization 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 Name Role Phone REQUEST, DR NONE [...] ., MARIYA Attending Unavailable GRECHNY ., PALMIRA OFX Consulting UnavailREGINALDO Ferrell Consulting Unavailable SISTER, SIMONE Consulting Unavailable AIMEE ., MARIYA Consulting Unavailable Allergies Allergy Classification Reported Allergen(s) Allergy Type Date of Onset Reaction(s) Facility (1 source) Penicillin Drug Allergy [facility] Repository Problems Active Problems Problem Classification [...] 03-27-2023 Episodic Other aftercare (1 source) Other nursing home (current) drug therapy; Translations: [OTH ORCHID GROWER CURRENT DRUG THERAPY] Onset: 04-07-2023 Episodic Other [...] BASO # 0.0 103/ul Normal 0.0-0.1 [facility] Comment on above: Performed By: #### C BC ####[facility] [address]in[address] [place] [address]Dr. Garima Pulliam Basophils/100 WBC (Bld) 0.3 % Normal 0.2-2.0 [facility] Comment on above: Performed By: #### C BC ####[facility] [address]zgehrcnp[address] [place] [address]DrAdalberto Pulliam EO # 0.3 103/ul Normal 0.0-0.7 [facility] Comment on above: Performed By: #### C BC ####[facility] Kp[address] [place], [place] [address]Dr. Garima Pulliam Eosinophils/100 WBC (Bld) 2.8 % Normal 0.9-7.0 [facility] Comment on above: Performed By: #### C BC ####[facility] [address]xlxtvuxvg[address] [place] [address]Dr. Garima Pulliam Erythrocyte distribution width (RBC) [Ratio] 13.4 % Normal 11.0-15.0 [facility] Comment on above: Performed By: #### C BC ####[facility] Lnmseogxxw[address] [place] [address]Dr. Garima Pulliam Hematocrit (Bld) [Volume fraction] 45.7 % Normal 42.0-54.0 [facility] Comment on above: Performed By: #### C BC ####[facility] Kkrjfobubs[address] [place] [address]Dr. Garima Pulliam Hemoglobin (Bld) [Mass/Vol] 15.2 g/dL Normal 14.0-18.0 [facility] Comment on above: Performed By: #### C BC ####[facility] [address]udzobkpkz[address] [place] [address]Dr. Garima Pulliam IG # 0.02 10e3/ul Normal 0.00-0.03 [facility] Comment on above: Performed By: #### C BC ####[facility] Pzuhmlzegr[address] [place] [address]Dr. Garima Pulliam IG % 0.2 % Normal 0.0-0.5 [facility] Comment on above: Performed By: #### C BC ####[facility] Bsfv[address]zblc[address] [place] [address]Dr. Garima Pulliam LYMPH # 2.1 103/ul Normal 1.2-3.8 [facility] Comment on above: Performed By: #### C BC ####[facility] Kbczfkuvgk26[address] [place] [address]Dr. Garima Pulliam Lymphocytes/100 WBC (Bld) 23.7 % Normal 20.5-60.0 [facility] Comment on above: Performed By: #### C BC ####[facility] Rmfhvagjrq04[address] [place] [address]Dr. Garima Heraclio MANUAL DIFF REQ NO Normal [facility] Comment on above: Performed By: #### C BC ####[facility] Bevvzvgedq3[address] [place] [address]Dr. Garima Pulliam MCH (RBC) [Entitic mass] 30.4 pg Normal 25.9-34.0 [facility] Comment on above: Performed By: #### C BC ####[facility] Bgbjxsiaih04[address] [place] [address]Dr. Garima Heraclio MCHC (RBC) [Mass/Vol] 33.3 g/dL Normal 29.9-35.2 [facility] Comment on above: Performed By: #### C BC ####[facility] Xpqfvoujls[address] [place], [place] [address]Dr. Chapisrenu Pulliam MCV (RBC) [Entitic vol] 91.4 fL Normal 80.0-94.0 [facility] Comment on above: Performed By: #### C BC ####[facility] N[address]eq[address] [place], [place] [address]Dr. Garima Heraclio MONO # 0.7 103/ul Normal 0.3-0.8 [facility] Comment on above: Performed By: #### C BC ####[facility] Znoeiijlkg[address] [place], [place] [address]Dr. Chapisrenu Pulliam Monocytes/100 WBC (Bld) 8.3 % Normal 1.7-12.0 [facility] Comment on above: Performed By: #### C BC ####[facility] Mtdvqjahcp29[address] [place] [address]Dr. Chapisrenu Heraclio NEUT # 5.8 103/ul Normal 1.4-6.5 [facility] Comment on above: Performed By: #### C BC ####[facility] Tdzkvpfwiu[address] [place], [place] [address]Dr. Garima Pulliam Neutrophils/100 WBC (Bld) 64.7 % Normal 43.0-75.0 [facility] Comment on above: Performed By: #### C BC ####[facility] Lfnponrgei29[address] [place] [address]Dr. Garima Pulliam Platelet mean volume (Bld) [Entitic vol] 8.6 fL Critically low 9.5-13.5 [facility] Comment on above: Performed By: #### C BC ####[facility] Paajwxdbpz47[address] [place] [address]Dr. Garima Pulliam PLT 230 103/ul Normal 150-450 [facility] Comment on above: Performed By: #### C BC ####[facility] Nelmxnsqzx24[address] [place] [address]Dr. Chapisrenu Heraclio RBC 5.00 106/ul Normal 4.70-6.10 [facility] Comment on above: Performed By: #### C BC ####[facility] Rhvavxqytn3233 [place] [address]Dr. Garima Heraclio WBC 9.0 103/ul Normal 4.0-11.0 [facility] Comment on above: Performed By: #### C BC ####[facility] Dvrgweovab7[address] [place] [address]Dr. Garima Pulliam MAGNESIUMon 04-04-2023 Magnesium [Mass/Vol] 1.8 mg/dL Normal 1.8-2.4 [facility] Comment on above: Performed By: #### M G ####[facility] Xwqgxqsuhp9167 [place] [address]Dr. Chapisrenu Pulliam PROF 14(COMP METB)on 023 Albumin [Mass/Vol] 3.8 g/dL Normal 3.4-5.0 [facility] Comment on above: Performed By: #### C MP ####[facility] Tblldshrum[address] [place] [address]Dr. Garima Pulliam Albumin/Globulin [Mass ratio] 1.2 {ratio} Normal [facility] Comment on above: Performed By: #### C MP ####[facility] Mbbrwbqrjg8976 [place] [address]Dr. Garima Heraclio ALP [Catalytic activity/Vol] 84 U/L Normal 46-116 [facility] Comment on above: Performed By: #### C MP ####[facility] Lqxgxbnwcz4622 [place] [id number]. Garima Pulliam ALT [Catalytic activity/Vol] 31 U/L Normal 16-63 [facility] Comment on above: Performed By: #### C MP ####[facility] Okbgkyqoau4359 [place] [address]Dr. Garima Pulliam Anion gap [Moles/Vol] 12.2 mmol/L Normal [facility] Comment on above: Performed By: #### C MP ####[facility] Aniaqpwnoh7[address] [place] [address]Dr. Garima Pulliam AST [Catalytic activity/Vol] 23 U/L Normal 15-37 [facility] Comment on above: Performed By: #### C MP ####[facility] [address]pe[address] [place], [place] [address]Dr. Garima Pulliam Bilirubin [Mass/Vol] 0.5 mg/dL Normal 0.2-1.0 [facility] Comment on above: Performed By: #### C MP ####[facility] Akppsurkzx[address] [place], [place] [address]Dr. Garima Pulliam Calcium [Mass/Vol] 9.2 mg/dL Normal 8.5-10.1 [facility] Comment on above: Performed By: #### C MP ####[facility] I[address]qs[address]pf[address] [place], [place] [address]Dr. Garima Pulliam Chloride [Moles/Vol] 103 mmol/L Normal 98-107 [facility] Comment on above: Performed By: #### C MP ####[facility] Vaeeelbcmc34[address] [place] [address]Dr. Garima Pulliam CO2 [Moles/Vol] 28.5 mmol/L Normal 21.0-32.0 [facility] Comment on above: Performed By: #### C MP ####[facility] Vexlsgfron[address] [place], [place] [address]Dr. Garima Pulliam Creatinine [Mass/Vol] 0.74 mg/dL Normal 0.70-1.30 [facility] Comment on above: Performed By: #### C MP ####[facility] Wrzkiyfhqc6086 [place] [id number]. Garima Pulliam EGFR-AF URUGUAYAN >60 Normal >=60 [facility] Comment on above: Performed By: #### C MP ####[facility] Oftddyqtws9154 [place] [address]Dr. Garima Heraclio EGFR-NON AF URUGUAYAN >60 Normal >=60 [facility] Comment on above: Performed By: #### C MP ####[facility] Bincfjpcov26[address] [place] [id number]. Garima Heraclio Globulin (S) [Mass/Vol] 3.1 g/dL Normal [facility] Comment on above: Performed By: #### C MP ####[facility] F[address]qiqnpnc[address] [place], [place] [address]Dr. Garima Heraclio Glucose [Mass/Vol] 93 mg/dL Normal 74-106 [facility] Comment on above: Performed By: #### C MP ####[facility] [address]leoavpzj[address] [place], [place] [address]Dr. Garima Heraclio Potassium [Moles/Vol] 3.7 mmol/L Normal 3.5-5.1 [facility] Comment on above: Performed By: #### C MP ####[facility] Jqouftjksg[address] [place], [place] [address]Dr. Garima Heraclio Protein [Mass/Vol] 6.9 g/dL Normal 6.4-8.2 [facility] Comment on above: Performed By: #### C MP ####[facility] Lqznmmcsyv6[address] [place], [place] [address]Dr. Garima Heraclio Sodium [Moles/Vol] 140 mmol/L Normal 136-145 [facility] Comment on above: Performed By: #### C MP ####[facility] Ngvtttkpgf[address] [place], [place] [address]Dr. Garima Pulliam Urea nitrogen [Mass/Vol] 8.0 mg/dL Normal 7.0-18.0 [facility] Comment on above: Performed By: #### C MP ####[facility] Kohyasakyb[address] [place], [place] [address]Dr. Garima Pulliam Urea nitrogen/Creatinine [Mass ratio] 10.8 mg/mg Normal [facility] Comment on above: Performed By: #### C DAVID ####[facility] [address]ef[address]ktru[address] [place] [address]Dr. Garima Pulliam AMMONIAon 03-30-2023 Ammonia (P) [Moles/Vol] 11 umol/L Normal 11-32 [facility] Comment on above: Performed By: #### A MM ####[facility] Shzoawwrab[address] [place], [place] [address]Dr. Garima Pulliam CARDIAC NASH ADMITon 023 CK [Catalytic activity/Vol] 232 U/L Normal 39-308 [facility] Comment on above: Performed By: #### C NANCY HERNANDEZ ####[facility] Pawcliitvz8[address] [place] [address]Dr. Chapisrenu Pulliam CK.MB [Mass/Vol] 4.83 ng/mL Critically high <=3.60 [facility] Comment on above: Performed By: #### C NANCY HERNANDEZ ####[facility] Rvemtoqnup[address] [place], [place] [address]Dr. Garima Pulliam HSTROP 10.5 pg/mL Normal 4.0-76.1 [facility] Comment on above: Result Comment: CUT- OFF POINTS HAVE BEEN ESTABLISHED BASED ON THE FOURTH UNIVERSAL DEFINITIONS OF MYOCARDIALINFARCTION. THE UPPER REFERENCE LIMIT (URL) OF TROPONIN, DEFINED THE 99TH PERCENTILE OFcTnI DISTRIBUTION IN A REFERENCE POPULATION, HAS BEEN CONFIRMED THE DECISION THRESHOLDFOR MN DIAGNOSIS. Performed By: #### C NANCY HERNANDEZ ####[facility] [address]rmf[address]chl[address] [place], [place] [address]Dr. Garima Heraclio DORIS 79 ng/mL Normal 16-96 [facility] Comment on above: Performed By: #### C NANCY HERNANDEZ ####[facility] Qissskxene[address] [place], [place] [address]Dr. Garima Heraclio CBC AUTO DIFFon 03-30-2023 BASO # 0.0 103/ul Normal 0.0-0.1 [facility] Comment on above: Performed By: #### C BC ####[facility] Bkrurdydhf3824 [place] [id number]. Garima Pulliam Basophils/100 WBC (Bld) 0.1 % Critically low 0.2-2.0 [facility] Comment on above: Performed By: #### C BC ####[facility] Qcnqyezcsf2302 [place] [phone]. Garima Pulliam EO # 0.3 103/ul Normal 0.0-0.7 [facility] Comment on above: Performed By: #### C BC ####[facility] Xps[address] [place], [place] [id number]. Garima Pulliam Eosinophils/100 WBC (Bld) 3.3 % Normal 0.9-7.0 [facility] Comment on above: Performed By: #### C BC ####[facility] Cdtbu[address]pla[address] [place], [place] [id number]. Garima Pulliam Erythrocyte distribution width (RBC) [Ratio] 13.5 % Normal 11.0-15.0 [facility] Comment on above: Performed By: #### C BC ####[facility] K[address]ef[address]pa[address] [place], [place] [id number]. Garima Pulliam Hematocrit (Bld) [Volume fraction] 42.9 % Normal 42.0-54.0 [facility] Comment on above: Performed By: #### C BC ####[facility] [address]xpdlwml[address] [place], [place] [address]Dr. Garima Pulliam Hemoglobin (Bld) [Mass/Vol] 13.9 g/dL Critically low 14.0-18.0 [facility] Comment on above: Performed By: #### C BC ####[facility] Yhoqmsmdbn9027 [place] [phone]. Garima Pulliam IG # 0.01 10e3/ul Normal 0.00-0.03 [facility] Comment on above: Performed By: #### C BC ####[facility] [address] [place], [place] [address]Dr. Garima Pulliam IG % 0.1 % Normal 0.0-0.5 [facility] Comment on above: Performed By: #### C BC ####[facility] Bocdwehssb76[address] [place] [phone]. Garima Pulliam LYMPH # 1.7 103/ul Normal 1.2-3.8 [facility] Comment on above: Performed By: #### C BC ####[facility] [address]ce6[address] [place], [place] [address]Ia. Garima Pulliam Lymphocytes/100 WBC (Bld) 22.8 % Normal 20.5-60.0 [facility] Comment on above: Performed By: #### C BC ####[facility] Lydnavinyg0669 [place] [phone]. Garima Heraclio MANUAL DIFF REQ NO Normal [facility] Comment on above: Performed By: #### C BC ####[facility] Zvgglfdxsr7841 [place] [phone]. Garima Heraclio MCH (RBC) [Entitic mass] 30.5 pg Normal 25.9-34.0 [facility] Comment on above: Performed By: #### C BC ####[facility] Yszxryezpe6979 [place] [phone]. Garima Pulliam MCHC (RBC) [Mass/Vol] 32.4 g/dL Normal 29.9-35.2 [facility] Comment on above: Performed By: #### C BC ####[facility] Jajrzzxlcb8129 [place] [phone]. Garima Heraclio MCV (RBC) [Entitic vol] 94.1 fL Critically high 80.0-94.0 [facility] Comment on above: Performed By: #### C BC ####[facility] Gtvmyaebjx[address] [place] [phone]. Garima Heraclio MONO # 0.7 103/ul Normal 0.3-0.8 [facility] Comment on above: Performed By: #### C BC ####[facility] Mncjtajily5741 [place] [phone]. Garima Heraclio Monocytes/100 WBC (Bld) 8.6 % Normal 1.7-12.0 [facility] Comment on above: Performed By: #### C BC ####[facility] Pafgbmoamp2712 [place] [phone]. Garima Pulliam NEUT # 4.9 103/ul Normal 1.4-6.5 [facility] Comment on above: Performed By: #### C BC ####[facility] Meiibpavyp8311 [place] [phone]. Garima Pulliam Neutrophils/100 WBC (Bld) 65.1 % Normal 43.0-75.0 [facility] Comment on above: Performed By: #### C BC ####[facility] Mvwsbabdhf1610 [place] [phone]. Garima Pulliam Platelet mean volume (Bld) [Entitic vol] 8.5 fL Critically low 9.5-13.5 [facility] Comment on above: Performed By: #### C BC ####[facility] Kcctanuaxz4378 [place] [phone]. Garima Pulliam PLT 219 103/ul Normal 150-450 [facility] Comment on above: Performed By: #### C BC ####[facility] Vrmdnefzfn8389 [place] [phone]. Garima Pulliam RBC 4.56 106/ul Critically low 4.70-6.10 [facility] Comment on above: Performed By: #### C BC ####[facility] Pxhejpbqqg8308 [place] [phone]. Garima Pulliam WBC 7.6 103/ul Normal 4.0-11.0 [facility] Comment on above: Performed By: #### C BC ####[facility] Ltussxrdme9127 [place] [phone]. Garima Pulliam LACTATE/LACTIC ACIDon 2022 Lactate [Moles/Vol] 1.2 mmol/L Normal 0.4-2.0 [facility] Comment on above: Performed By: #### L ACT ####[facility] Iscpaleqmo6223 [place] [phone]. Garima Pulliam MAGNESIUMon 03-30-2023 Magnesium [Mass/Vol] 1.8 mg/dL Normal 1.8-2.4 [facility] Comment on above: Performed By: #### M G ####[facility] Savhbotfxd44[address] [place] [address]Dr. Garima Pulliam PROF 14(COMP METB)on 023 Albumin [Mass/Vol] 3.5 g/dL Normal 3.4-5.0 [facility] Comment on above: Performed By: #### C DAVID, CMAANA ROSA ####[facility] Hrvajbhaxl2207 [place] [address]Dr. Garima Pulliam Albumin/Globulin [Mass ratio] 1.2 {ratio} Normal [facility] Comment on above: Performed By: #### C DAVID, CMAANA ROSA ####[facility] Wrpjtyzdtz6676 [place] [address]Dr. Garima Pulliam ALP [Catalytic activity/Vol] 85 U/L Normal 46-116 [facility] Comment on above: Performed By: #### C DAVID, CMAANA ROSA ####[facility] Exibktzxfw[address] [place], [place] [address]Dr. Garima Pulliam ALT [Catalytic activity/Vol] 29 U/L Normal 16-63 [facility] Comment on above: Performed By: #### C DAVID, CMAANA ROSA ####[facility] Nnigacoyjm8485 [place] [address]Dr. Garima Pulliam Anion gap [Moles/Vol] 8.0 mmol/L Normal [facility] Comment on above: Performed By: #### C DAVID, CMAANA ROSA ####[facility] Xmjvzhizba3365 [place] [address]Dr. Garima Pulliam AST [Catalytic activity/Vol] 18 U/L Normal 15-37 [facility] Comment on above: Performed By: #### C DAVID, CMADM ####[facility] Ncvpmdqito9631 [place] [address]Dr. Garima Pulliam Bilirubin [Mass/Vol] 0.4 mg/dL Normal 0.2-1.0 [facility] Comment on above: Performed By: #### C DAVID, CMADM ####[facility] Qhyxzeldtg3950 [place] [address]Dr. Garima Pulliam Calcium [Mass/Vol] 8.8 mg/dL Normal 8.5-10.1 [facility] Comment on above: Performed By: #### C DAVID, NANCY ####[facility] Xupuqsszqb4671 [place] [address]Dr. Chapisrenu Pulliam Chloride [Moles/Vol] 108 mmol/L Critically high 98-107 [facility] Comment on above: Performed By: #### C DAVID, NANCY ####[facility] Chahnzjohp40[address] [place] [address]Dr. Garima Pulliam CO2 [Moles/Vol] 29.6 mmol/L Normal 21.0-32.0 [facility] Comment on above: Performed By: #### C NANCY HERNANDEZ ####[facility] [address]wk[address]ny[address] [place], [place] [address]Dr. Garima Pulliam Creatinine [Mass/Vol] 0.77 mg/dL Normal 0.70-1.30 [facility] Comment on above: Performed By: #### C NANCY HERNANDEZ ####[facility] [address]pxdx[address]xakw[address] [place], [place] [address]Dr. Garima Heraclio EGFR-AF URUGUAYAN >60 Normal >=60 [facility] Comment on above: Performed By: #### C NANCY HERNANDEZ ####[facility] W[address]umdwixg[address] [place], [place] [address]Dr. Garima Heraclio EGFR-NON AF URUGUAYAN >60 Normal >=60 [facility] Comment on above: Performed By: #### C NANCY HERNANDEZ ####[facility] Qremmhcann1157 [place] [address]Dr. Garima Pulliam Globulin (S) [Mass/Vol] 2.8 g/dL Normal [facility] Comment on above: Performed By: #### C NANCY HERNANDEZ ####[facility] Xgsnaarclr9697 [place] [address]Dr. Garima Pulliam Glucose [Mass/Vol] 207 mg/dL Critically high 74-106 [facility] Comment on above: Performed By: #### C NANCY HERNANDEZ ####[facility] [address]xmezjfds[address] [place], [place] [address]Dr. Garima Pulliam Potassium [Moles/Vol] 4.6 mmol/L Normal 3.5-5.1 [facility] Comment on above: Performed By: #### C DAVID, NANCY ####[facility] Uoalhondfd6161 [place] [address]Dr. Garima Pulliam Protein [Mass/Vol] 6.3 g/dL Critically low 6.4-8.2 [facility] Comment on above: Performed By: #### C DAVID, NANCY ####[facility] Skjyvzmqob2369 [place] [address]Dr. Garima Pulliam Sodium [Moles/Vol] 141 mmol/L Normal 136-145 [facility] Comment on above: Performed By: #### C DAVID, NANCY ####[facility] Eqjgqsilpt5424 [place] [address]Dr. Garima Pulliam Urea nitrogen [Mass/Vol] 9.0 mg/dL Normal 7.0-18.0 [facility] Comment on above: Performed By: #### C DAVID, NANCY ####[facility] Uosikwwmkd9878 [place] [address]Dr. Garima Pulliam Urea nitrogen/Creatinine [Mass ratio] 11.7 mg/mg Normal [facility] Comment on above: Performed By: #### C DAVID, NANCY ####[facility] Gikhlhrvso[address] [place] [address]Dr. Garima Pulliam XR CHEST 1 Von 03-30-2023 XR CHEST 1 V Normal [facility] BNPon 03-27-2023 Natriuretic peptide B (Bld) [Mass/Vol] 251.0 pg/mL Normal <=900.0 [facility] Comment on above: Performed By: #### C MP, BNP, LIPID ####[facility] Wddtphzqxj7687 [place] [address]Dr. Garima Pulliam GLYCOHEMOGLOBIN A1Con 2022 ADA RECOMMENDATION SEE BELOW Normal [facility] Comment on above: Result Comment: ADA RECOMMENDED LIMIT 4.0 - 6.0 ADA THERAPEUTIC TARGET < 7.0 ACTION SUGGESTED > 7.0 Performed By: #### A 1C ####[facility] Qyghegwpcp2734 [place] [address]Dr. Garima Pulliam Glucose [Mass/Vol] 180 mg/dL Normal [facility] Comment on above: Performed By: #### A 1C ####[facility] Vzezpzmlkg[address] [place], [place] [address]Dr. Chapisrenu Pulliam HbA1c (Bld) [Mass fraction] 7.9 % Critically high 4.5-6.2 [facility] Comment on above: Performed By: #### A 1C ####[facility] Ebdhypbdel[address] [place], [place] [address]Dr. Garima Pulliam HEMOGRAM AND PLATELon 2022 Hematocrit (Bld) [Volume fraction] 45.7 % Normal 42.0-54.0 [facility] Comment on above: Performed By: #### H H ####[facility] Pxpw[address]zrpy[address] [place], [place] [address]Dr. Garima Pulliam Hemoglobin (Bld) [Mass/Vol] 15.1 g/dL Normal 14.0-18.0 [facility] Comment on above: Performed By: #### H H ####[facility] Xx[address]crhaql[address] [place], [place] [address]Dr. Garima Pulliam MCH (RBC) [Entitic mass] 30.0 pg Normal 25.9-34.0 [facility] Comment on above: Performed By: #### H H ####[facility] [address]rlhedal[address] [place], [place] [address]Dr. Garima Pulliam MCHC (RBC) [Mass/Vol] 33.0 g/dL Normal 29.9-35.2 [facility] Comment on above: Performed By: #### H H ####[facility] Onsyrkdmrv[address] [place], [place] [address]Dr. Garima Pulliam MCV (RBC) [Entitic vol] 90.7 fL Normal 80.0-94.0 [facility] Comment on above: Performed By: #### H H ####[facility] Kzigroxhym[address] [place], [place] [address]Dr. Garima Pulliam PLT 222 103/ul Normal 150-450 [facility] Comment on above: Performed By: #### H H ####[facility] [address] [place] [id number]. Garima Pulliam RBC 5.04 106/ul Normal 4.70-6.10 [facility] Comment on above: Performed By: #### H H ####[facility] Zyfobnkqop8[address] [place] [id number]. Garima Pulliam WBC 8.7 103/ul Normal 4.0-11.0 [facility] Comment on above: Performed By: #### H H ####[facility] Lzqbdqspkp14[address] [place] [id number]. Garima Pulliam LIPID PROFILEon 03-27-2023 CHOL-HDL RATIO NORM SEE BELOW Normal [facility] Comment on above: Result Comment: 3.3 - 4.4 LOW RISK 4.4 - 7.1 AVERAGE RISK 7.1 - 11.0 MODERATE RISK >11.0 HIGH RISK Performed By: #### C MP, BNP, LIPID ####[facility] [address]lsdpoev[address] [place] [address]Dr. Garima Pulliam Cholesterol [Mass/Vol] 113 mg/dL Normal <=200 [facility] Comment on above: Performed By: #### C MP, BNP, LIPID ####[facility] Kwqueqstbw[address] [place] [address]Dr. Garima Pulliam Cholesterol in HDL [Mass/Vol] 51 mg/dL Normal 40-60 [facility] Comment on above: Performed By: #### C MP, BNP, LIPID ####[facility] Qkgakippir[address] [place] [address]Dr. Garima Pulliam Cholesterol in LDL [Mass/Vol] 49.8 mg/dL Normal [facility] Comment on above: Performed By: #### C MP, BNP, LIPID ####[facility] Upbvceptrb4[address] [place] [address]Dr. Garima Pulliam Cholesterol.total/Cho lesterol in HDL [Mass ratio] 2.2 {ratio} Normal [facility] Comment on above: Performed By: #### C MP, BNP, LIPID ####[facility] Uaqwpbjfvs[address] [place] [address]Dr. Garima Pulliam HDL NORMAL > or = 60 mg/dl - LOW CARDIOVASCULAR RISK <40 mg/dl - HIGH CARDIOVASCULAR RISK Normal [facility] Comment on above: Performed By: #### C MP, BNP, LIPID ####[facility] Aqjgzevazw4[address] [place] [address]Dr. Garima Pulliam LDL CALC NORMAL SEE BELOW Normal [facility] Comment on above: Result Comment: <100 mg/dl OPTIMAL 100 - 129 mg/dl NEAR OR ABOVE OPTIMAL 130 - 159 mg/dl BORDERLINE HIGH 160 - 189 mg/dl HIGH >190 mg/dl VERY HIGH Performed By: #### C MP, BNP, LIPID ####[facility] Tuxeufumrz[address] [place] [address]Dr. Garima Pulliam Triglyceride [Mass/Vol] 61 mg/dL Normal <=150 [facility] Comment on above: Performed By: #### C MP, BNP, LIPID ####[facility] Zyibotempd16[address] [place] [address]Dr. Garima Pulliam VLDL CALC 12.2 mg/dL Normal [facility] Comment on above: Performed By: #### C MP, BNP, LIPID ####[facility] Nddvogngue6146 [place] [address]Dr. Garima Pulliam PROF 14(COMP METB)on 023 Albumin [Mass/Vol] 3.5 g/dL Normal 3.4-5.0 [facility] Comment on above: Performed By: #### C MP, BNP, LIPID ####[facility] Tsshafcgir0[address] [place] [address]Dr. Garima Pulliam Albumin/Globulin [Mass ratio] 1.2 {ratio} Normal [facility] Comment on above: Performed By: #### C MP, BNP, LIPID ####[facility] Fmqpkcokla64[address] [place] [address]Dr. Garima Pulliam ALP [Catalytic activity/Vol] 82 U/L Normal 46-116 [facility] Comment on above: Performed By: #### C MP, BNP, LIPID ####[facility] Oxenbaimlg232[address] [place] [address]Dr. Garima Pulliam ALT [Catalytic activity/Vol] 33 U/L Normal 16-63 [facility] Comment on above: Performed By: #### C MP, BNP, LIPID ####[facility] Uymfudkiwk5[address] [place] [address]Dr. Garima Pulliam Anion gap [Moles/Vol] 9.9 mmol/L Normal [facility] Comment on above: Performed By: #### C MP, BNP, LIPID ####[facility] Zhhehenoyp8375 [place] [address]Dr. Garima Pulliam AST [Catalytic activity/Vol] 24 U/L Normal 15-37 [facility] Comment on above: Performed By: #### C MP, BNP, LIPID ####[facility] Yjquttnfnh6382 [place] [address]Dr. Garima Pulliam Bilirubin [Mass/Vol] 0.6 mg/dL Normal 0.2-1.0 [facility] Comment on above: Performed By: #### C MP, BNP, LIPID ####[facility] Rnqkwzkaxp8[address] [place] [address]Dr. Garima Pulliam Calcium [Mass/Vol] 9.2 mg/dL Normal 8.5-10.1 [facility] Comment on above: Performed By: #### C MP, BNP, LIPID ####[facility] Qodkfztane5307 [place] [address]Dr. Garima Pulliam Chloride [Moles/Vol] 106 mmol/L Normal 98-107 [facility] Comment on above: Performed By: #### C MP, BNP, LIPID ####[facility] Hhcaaeknwi0243 [place] [address]Dr. Garima Pulliam CO2 [Moles/Vol] 32.3 mmol/L Critically high 21.0-32.0 [facility] Comment on above: Performed By: #### C MP, BNP, LIPID ####[facility] Sjqlnmhyuw080[address] [place] [address]Dr. Garima Pulliam Creatinine [Mass/Vol] 0.70 mg/dL Normal 0.70-1.30 [facility] Comment on above: Performed By: #### C MP, BNP, LIPID ####[facility] Wndltibidr0406 [place] [id number]. Garima Pulliam EGFR-AF URUGUAYAN >60 Normal >=60 [facility] Comment on above: Performed By: #### C MP, BNP, LIPID ####[facility] Jdqjrvdqko92[address] [place] [id number]. Garima Pulliam EGFR-NON AF URUGUAYAN >60 Normal >=60 [facility] Comment on above: Performed By: #### C MP, BNP, LIPID ####[facility] Wwglvxyezv2122 [place] [address]Dr. Garima Pulliam Globulin (S) [Mass/Vol] 2.9 g/dL Normal [facility] Comment on above: Performed By: #### C MP, BNP, LIPID ####[facility] Ancenghyvu56[address] [place] [address]Dr. Garima Pulliam Glucose [Mass/Vol] 111 mg/dL Critically high 74-106 [facility] Comment on above: Performed By: #### C MP, BNP, LIPID ####[facility] Ugmvujaiec5458 [place] [address]Dr. Garima Pulliam Potassium [Moles/Vol] 4.2 mmol/L Normal 3.5-5.1 [facility] Comment on above: Performed By: #### C MP, BNP, LIPID ####[facility] Ohrpvgyoei87[address] [place] [address]Dr. Garima Pulliam Protein [Mass/Vol] 6.4 g/dL Normal 6.4-8.2 [facility] Comment on above: Performed By: #### C MP, BNP, LIPID ####[facility] Qcxqbunohg2425 [place] [address]Dr. Garima Pulliam Sodium [Moles/Vol] 144 mmol/L Normal 136-145 [facility] Comment on above: Performed By: #### C MP, BNP, LIPID ####[facility] Qsdtpmofey6631 [place] [address]Dr. Garima Pulliam Urea nitrogen [Mass/Vol] 7.0 mg/dL Normal 7.0-18.0 [facility] Comment on above: Performed By: #### C MP, BNP, LIPID ####[facility] [address]sr[address] [place], [place] [address]Dr. Garima Pulliam Urea nitrogen/Creatinine [Mass ratio] 10.0 mg/mg Normal [facility] Comment on above: Performed By: #### C MP, BNP, LIPID ####[facility] Zxxzaf[address] [place], [place] [address]Dr. Garima Pulliam BNPon 03-22-2023 Natriuretic peptide B (Bld) [Mass/Vol] 103.0 pg/mL Normal <=900.0 [facility] Comment on above: Performed By: #### B [employer] INSTALLER, BMP ####[facility] Gdvwi[address] [place], [place] [address]Dr. Garima Pulliam CBC AUTO DIFFon 03-22-2023 BASO # 0.0 103/ul Normal 0.0-0.1 [facility] Comment on above: Performed By: #### C BC ####[facility] Vnfkujrlts[address] [place], [place] [address]Dr. Garima Heraclio Basophils/100 WBC (Bld) 0.3 % Normal 0.2-2.0 [facility] Comment on above: Performed By: #### C BC ####[facility] Htlhqezj[address] [place], [place] [address]Dr. Garima Pulliam EO # 0.2 103/ul Normal 0.0-0.7 [facility] Comment on above: Performed By: #### C BC ####[facility] Ucndlix[address]xd[address] [place], [place] [address]Dr. Garima Pulliam Eosinophils/100 WBC (Bld) 2.2 % Normal 0.9-7.0 [facility] Comment on above: Performed By: #### C BC ####[facility] Muiahxtzxy[address] [place], [place] [address]Dr. Garima Pulliam Erythrocyte distribution width (RBC) [Ratio] 13.2 % Normal 11.0-15.0 [facility] Comment on above: Performed By: #### C BC ####[facility] Eptipfejad6[address] [place] [phone]. Garima Pulliam Hematocrit (Bld) [Volume fraction] 43.4 % Normal 42.0-54.0 [facility] Comment on above: Performed By: #### C BC ####[facility] Ylgtrvzqxz5906 [place] [address]Dr. Garima Heraclio Hemoglobin (Bld) [Mass/Vol] 14.3 g/dL Normal 14.0-18.0 [facility] Comment on above: Performed By: #### C BC ####[facility] Byezyiwbfn[address] [place] [address]Dr. Garima Pulliam IG # 0.02 10e3/ul Normal 0.00-0.03 [facility] Comment on above: Performed By: #### C BC ####[facility] Vpxojjswuc[address] [place] [address]Dr. Garima Pulliam IG % 0.3 % Normal 0.0-0.5 [facility] Comment on above: Performed By: #### C BC ####[facility] Gyirjeotmj[address] [place] [address]Dr. Chapisrenu Pulliam LYMPH # 2.0 103/ul Normal 1.2-3.8 [facility] Comment on above: Performed By: #### C BC ####[facility] Hmqoufuvsy26[address] [place] [address]Dr. Chapisrenu Pulliam Lymphocytes/100 WBC (Bld) 24.8 % Normal 20.5-60.0 [facility] Comment on above: Performed By: #### C BC ####[facility] Rxzomphroh[address] [place] [address]Dr. Chapisrenu Pulliam MANUAL DIFF REQ NO Normal [facility] Comment on above: Performed By: #### C BC ####[facility] Ketuixarfa64[address] [place] [address]Dr. Garima Heraclio MCH (RBC) [Entitic mass] 30.0 pg Normal 25.9-34.0 [facility] Comment on above: Performed By: #### C BC ####[facility] Ubsklwhunz[address] [place], [place] [address]Dr. Garima Pulliam MCHC (RBC) [Mass/Vol] 32.9 g/dL Normal 29.9-35.2 [facility] Comment on above: Performed By: #### C BC ####[facility] Obryuixwnk40[address] [place] [phone]. Garima Pulliam MCV (RBC) [Entitic vol] 91.0 fL Normal 80.0-94.0 [facility] Comment on above: Performed By: #### C BC ####[facility] Hrtywcaykv5806 [place] [phone]. Garima Heraclio MONO # 0.8 103/ul Normal 0.3-0.8 [facility] Comment on above: Performed By: #### C BC ####[facility] Lvjlvgmddq9595 [place] [address]Dr. Chapisrenu Pulliam Monocytes/100 WBC (Bld) 9.7 % Normal 1.7-12.0 [facility] Comment on above: Performed By: #### C BC ####[facility] Nkkoumulue[address] [place] [address]Dr. Garima Pulliam NEUT # 4.9 103/ul Normal 1.4-6.5 [facility] Comment on above: Performed By: #### C BC ####[facility] Cocmkwnqpq0107 [place] [phone]. Garima Heraclio Neutrophils/100 WBC (Bld) 62.7 % Normal 43.0-75.0 [facility] Comment on above: Performed By: #### C BC ####[facility] Xgipscyolv6589 [place] [phone]. Garima Heraclio Platelet mean volume (Bld) [Entitic vol] 8.8 fL Critically low 9.5-13.5 [facility] Comment on above: Performed By: #### C BC ####[facility] H[address]apsxfupv6270 [place] [phone]. Garima Heraclio PLT 198 103/ul Normal 150-450 [facility] Comment on above: Performed By: #### C BC ####[facility] Nporawfiyo4962 [place] [id number]. Garima Heraclio RBC 4.77 106/ul Normal 4.70-6.10 [facility] Comment on above: Performed By: #### C BC ####[facility] Knpsyycxki3024 [place] [id number]. Garima Heraclio WBC 7.9 103/ul Normal 4.0-11.0 [facility] Comment on above: Performed By: #### C BC ####[facility] Bpouccgmcq7938 [place] [id number]. Garima Heraclio D-DIMERon 03-22-2023 D-DIMER 0.85 mg/L FEU Critically high <=0.59 [facility] Comment on above: Performed By: #### D DIM ####[facility] Vtyryavkcf[address] [place] [address]Dr. Garima Pulliam D-DIMER COMMENTS SEE BELOW Normal [...] generalized hospitalization. Performed By: #### D DIM ####[facility] [address]bpvuprb[address] [place], [place] [address]Dr. Garima Pulliam PROF CHEM 8 (BAS METB)on Anion gap [Moles/Vol] 6.9 mmol/L Normal [facility] Comment on above: Performed By: #### B [employer] INST[employer]ER, BMP ####[facility] Zhlaixfecp1287 [place] [address]Dr. Garima Pulliam Calcium [Mass/Vol] 8.9 mg/dL Normal 8.5-10.1 [facility] Comment on above: Performed By: #### B [employer] INST[employer]ER, BMP ####[facility] Jazzemuwkg4652 [place] [address]Dr. Garima Pulliam Chloride [Moles/Vol] 101 mmol/L Normal 98-107 [facility] Comment on above: Performed By: #### B [employer] INSTALLER, BMP ####[facility] Rtmsupflbc[address] [place], [place] [address]Dr. Chapisrenu Heraclio CO2 [Moles/Vol] 30.7 mmol/L Normal 21.0-32.0 [facility] Comment on above: Performed By: #### B [employer] INSTALLER, BMP ####[facility] Eemkombiki[address] [place], [place] [address]Dr. Garima Pulliam Creatinine [Mass/Vol] 0.82 mg/dL Normal 0.70-1.30 [facility] Comment on above: Performed By: #### B [employer] INSTALLER, BMP ####[facility] Kcxyjlnjpl[address] [place], [place] [address]Dr. Garima Pulliam EGFR-AF URUGUAYAN >60 Normal >=60 [facility] Comment on above: Performed By: #### B [employer]ER [employer] INSTALLER, BMP ####[facility] Ifryvvvebd147[address] [place], [place] [address]Dr. Chapisrenu Heraclio EGFR-NON AF URUGUAYAN >60 Normal >=60 [facility] Comment on above: Performed By: #### B [employer]ER [employer] INSTALLER, BMP ####[facility] Zkwlyqavue[address] [place], [place] [address]Dr. Garima Pulliam Glucose [Mass/Vol] 339 mg/dL Critically high 74-106 T [facility] Comment on above: Performed By: #### B [employer] INSTALLER, BMP ####[facility] Nredrwcqda[address] [place], [place] [address]Dr. Garima Pulliam Potassium [Moles/Vol] 3.6 mmol/L Normal 3.5-5.1 [facility] Comment on above: Performed By: #### B [employer]ER [employer] INSTALLER, BMP ####[facility] Wdqqfutnhl7[address] [place], [place] [address]Dr. Garima Pulliam Sodium [Moles/Vol] 135 mmol/L Critically low 136-145 [facility] Comment on above: Performed By: #### B [employer]ER [employer] INSTALLER, BMP ####[facility] Piljohtsmx[address] [place], [place] [address]Dr. Garima Pulliam Urea nitrogen [Mass/Vol] 11.0 mg/dL Normal 7.0-18.0 [facility] Comment on above: Performed By: #### B [employer] INSTALLER, BMP ####[facility] Yakikkdgcw[address] [place], [place] [address]Dr. Garima Pulliam Urea nitrogen/Creatinine [Mass ratio] 13.4 mg/mg Normal [facility] Comment on above: Performed By: #### B [employer]ER [employer] INSTALLER, BMP ####[facility] Jkpsbywcxz[address] [place], [place] [address]Dr. Garima uPlliam US VERONICA DOP LEG BILon 023 US VERONICA DOP LEG BENOIT Normal [facility] BNPon 03-18-2023 Natriuretic peptide B (Bld) [Mass/Vol] 226.0 pg/mL Normal <=900.0 [facility] Comment on above: Performed By: #### B [employer]KER [employer] INSTALLER, BMP ####[facility] Ndxmiqtkgl[address] [place], [place] [address]Dr. Garima Pulliam CBC AUTO DIFFon 03-18-2023 BASO # 0.0 103/ul Normal 0.0-0.1 [facility] Comment on above: Performed By: #### C BC ####[facility] Qafdhuuirj[address] [place], [place] [address]Dr. Garima Heraclio Basophils/100 WBC (Bld) 0.2 % Normal 0.2-2.0 [facility] Comment on above: Performed By: #### C BC ####[facility] Edrmjbsdux[address] [place], [place] [address]Dr. Garima Pulliam EO # 0.3 103/ul Normal 0.0-0.7 [facility] Comment on above: Performed By: #### C BC ####[facility] Axlfxvvkwr[address] [place], [place] [address]Dr. Garima Heraclio Eosinophils/100 WBC (Bld) 2.5 % Normal 0.9-7.0 [facility] Comment on above: Performed By: #### C BC ####[facility] Zqnqzhgcts[address] [place], [place] [address]Dr. Garima Heraclio Erythrocyte distribution width (RBC) [Ratio] 13.2 % Normal 11.0-15.0 [facility] Comment on above: Performed By: #### C BC ####[facility] Rvdlwzrqtg0678 [place] [address]DrAdalberto Pulliam Hematocrit (Bld) [Volume fraction] 45.8 % Normal 42.0-54.0 [facility] Comment on above: Performed By: #### C BC ####[facility] Boemllycuy8721 [place] [address]DrAdalberto Pulliam Hemoglobin (Bld) [Mass/Vol] 15.3 g/dL Normal 14.0-18.0 [facility] Comment on above: Performed By: #### C BC ####[facility] Mrfolmamql[address] [place], [place] [address]DrAdalberto Pulliam IG # 0.02 10e3/ul Normal 0.00-0.03 [facility] Comment on above: Performed By: #### C BC ####[facility] Dtvvyzfwhx[address] [place], [place] [address]DrAdalberto Pulliam IG % 0.2 % Normal 0.0-0.5 [facility] Comment on above: Performed By: #### C BC ####[facility] L[address]wnlchfos[address] [place], [place] [address]DrAdalberto Pulliam LYMPH # 1.8 103/ul Normal 1.2-3.8 [facility] Comment on above: Performed By: #### C BC ####[facility] Nlfslwrgry[address] [place], [place] [address]DrAdalberto Pulliam Lymphocytes/100 WBC (Bld) 18.3 % Critically low 20.5-60.0 [facility] Comment on above: Performed By: #### C BC ####[facility] Zyhhibkskv[address] [place], [place] [address]DrAdalberto Pulliam MANUAL DIFF REQ NO Normal [facility] Comment on above: Performed By: #### C BC ####[facility] Zsjcneklsl9122 [place] [address]DrAdalberto Pulliam MCH (RBC) [Entitic mass] 30.5 pg Normal 25.9-34.0 [facility] Comment on above: Performed By: #### C BC ####[facility] Jwaystuhbj6609 [place] [address]DrAdalberto Pulliam MCHC (RBC) [Mass/Vol] 33.4 g/dL Normal 29.9-35.2 [facility] Comment on above: Performed By: #### C BC ####[facility] Vfafvmgomz8028 [place] [address]DrAdalberto Pulliam MCV (RBC) [Entitic vol] 91.2 fL Normal 80.0-94.0 [facility] Comment on above: Performed By: #### C BC ####[facility] K[address]cxqxuau[address] [place], [place] [address]DrAdalberto Pulliam MONO # 0.8 103/ul Normal 0.3-0.8 [facility] Comment on above: Performed By: #### C BC ####[facility] Yktjddbyvb[address] [place], [place] [address]DrAdalberto Pulliam Monocytes/100 WBC (Bld) 7.6 % Normal 1.7-12.0 [facility] Comment on above: Performed By: #### C BC ####[facility] [address]tdpbwekg[address] [place], [place] [address]DrAdalberto Pulliam NEUT # 7.0 103/ul Critically high 1.4-6.5 [facility] Comment on above: Performed By: #### C BC ####[facility] Ulfptepylf[address] [place], [place] [address]DrAdalberto Pulliam Neutrophils/100 WBC (Bld) 71.2 % Normal 43.0-75.0 [facility] Comment on above: Performed By: #### C BC ####[facility] Kphupliftd[address] [place], [place] [address]DrAdalberto Pulliam Platelet mean volume (Bld) [Entitic vol] 8.9 fL Critically low 9.5-13.5 [facility] Comment on above: Performed By: #### C BC ####[facility] [address]kesoviq[address] [place], [place] [address]DrAdalberto Pulliam PLT 217 103/ul Normal 150-450 [facility] Comment on above: Performed By: #### C BC ####[facility] Uogcwfoffe1576 [place] [address]Dr. Garima Heraclio RBC 5.02 106/ul Normal 4.70-6.10 [facility] Comment on above: Performed By: #### C BC ####[facility] Beczfigmfa[address] [place], [place] [address]Dr. Garima Pulliam WBC 9.8 103/ul Normal 4.0-11.0 [facility] Comment on above: Performed By: #### C BC ####[facility] Extmgeojfz[address] [place], [place] [address]Dr. Garima Heraclio CRPon 03-18-2023 CRP 0.1 mg/dL Normal <=1.0 [facility] Comment on above: Performed By: #### C RP ####[facility] Auarmvxowb[address] [place], [place] [address]Dr. Garima Heraclio PROF CHEM 8 (BAS METB)on Anion gap [Moles/Vol] 10.4 mmol/L Normal [facility] Comment on above: Performed By: #### B BUT[employer] MAKER [employer] INSTALLER, BMP ####[facility] Yrqasdjksq[address] [place], [place] [address]Dr. Garima Heraclio Calcium [Mass/Vol] 8.8 mg/dL Normal 8.5-10.1 [facility] Comment on above: Performed By: #### B BUT[employer] MAKER AND INSTALLER, BMP ####[facility] Upsrmxuffn[address] [place], [place] [address]Dr. Garima Heraclio Chloride [Moles/Vol] 97 mmol/L Critically low 98-107 [facility] Comment on above: Performed By: #### B BUT[employer] MAKER AND INSTALLER, BMP ####[facility] [address]xfdjrhutx[address] [place], [place] [address]Dr. Garima Pulliam CO2 [Moles/Vol] 31.2 mmol/L Normal 21.0-32.0 [facility] Comment on above: Performed By: #### B BUT[employer] MAKER AND INSTALLER, BMP ####[facility] [address]zbf[address]yl[address] [place], [place] [address]Dr. Garima Pulliam Creatinine [Mass/Vol] 0.91 mg/dL Normal 0.70-1.30 [facility] Comment on above: Performed By: #### B BUT[employer] MAKER AND INSTALLER, BMP ####[facility] Uxupnnsbmd04[address] [place] [address]Dr. Garima Pulliam EGFR-AF URUGUAYAN >60 Normal >=60 [facility] Comment on above: Performed By: #### B BUT[employer] MAKER AND INSTALLER, BMP ####[facility] Thyblptley7483 [place] [id number]. Garima Pulliam EGFR-NON AF URUGUAYAN >60 Normal >=60 [facility] Comment on above: Performed By: #### B BUT[employer] MAKER AND INSTALLER, BMP ####[facility] Mjgopinxts6306 [place] [address]Dr. Garima Pulliam Glucose [Mass/Vol] 315 mg/dL Critically high 74-106 T [facility] Comment on above: Performed By: #### B BUTTON MAKER AND INSTALLER, BMP ####[facility] Gyfruxetfj2150 [place] [address]Dr. Garima Pulliam Potassium [Moles/Vol] 3.6 mmol/L Normal 3.5-5.1 [facility] Comment on above: Performed By: #### B BUT[employer] MAKER AND INSTALLER, BMP ####[facility] Owybcvkwuy6960 [place] [address]Dr. Garima Pulliam Sodium [Moles/Vol] 135 mmol/L Critically low 136-145 Th [facility] Comment on above: Performed By: #### B [employer]KER [employer] INSTALLER, BMP ####[facility] Trhbapzrjq7166 [place] [address]Dr. Garima Pulliam Urea nitrogen [Mass/Vol] 7.0 mg/dL Normal 7.0-18.0 [facility] Comment on above: Performed By: #### B BUTTON MAKER AND INSTALLER, BMP ####[facility] [address] [place] [address]Dr. Garima Pulliam Urea nitrogen/Creatinine [Mass ratio] 7.7 mg/mg Normal [facility] Comment on above: Performed By: #### B BUTTON MAKER AND INSTALLER, BMP ####[facility] Cmtandwywf[address] [place] [address]Dr. Garima Pulliam SED RATE WESTERGRENon 2022 SED RATE 8 mm/hr Normal <=20 [facility] Comment on above: Performed By: #### S EDR ####[facility] [address]flw[address] [place], [place] [address]Dr. Garima Pulliam BNPon 03-16-2023 Natriuretic peptide B (Bld) [Mass/Vol] 241.0 pg/mL Normal <=900.0 [facility] Comment on above: Performed By: #### B BUTTON MAKER [employer] INSTALLER, BMP, HSTROPN ####[facility] Ccymthsoch[address] [place], [place] [address]Dr. Garima Heraclio CBC AUTO DIFFon 03-16-2023 BASO # 0.0 103/ul Normal 0.0-0.1 [facility] Comment on above: Performed By: #### C BC ####[facility] Lpycrwiwun[address] [place], [place] [address]Dr. Chapisrenu Pulliam Basophils/100 WBC (Bld) 0.2 % Normal 0.2-2.0 [facility] Comment on above: Performed By: #### C BC ####[facility] Snpkvvtozq[address] [place], [place] [address]Dr. Garima Pulliam EO # 0.2 103/ul Normal 0.0-0.7 [facility] Comment on above: Performed By: #### C BC ####[facility] Jfpnjmvsva[address] [place], [place] [address]Dr. Chapisrenu Pulliam Eosinophils/100 WBC (Bld) 2.7 % Normal 0.9-7.0 [facility] Comment on above: Performed By: #### C BC ####[facility] Grxfvrmypx[address] [place], [place] [address]Dr. Garima Pulliam Erythrocyte distribution width (RBC) [Ratio] 13.1 % Normal 11.0-15.0 [facility] Comment on above: Performed By: #### C BC ####[facility] Tbolsauhor43[address] [place], [place] [address]Dr. Garima Pulliam Hematocrit (Bld) [Volume fraction] 41.8 % Critically low 42.0-54.0 [facility] Comment on above: Performed By: #### C BC ####[facility] Nyacrechuw[address] [place] [address]Dr. Garima Pulliam Hemoglobin (Bld) [Mass/Vol] 14.0 g/dL Normal 14.0-18.0 [facility] Comment on above: Performed By: #### C BC ####[facility] Nl[address]qlq[address] [place] [address]Dr. Garima Pulliam IG # 0.03 10e3/ul Normal 0.00-0.03 [facility] Comment on above: Performed By: #### C BC ####[facility] Vyfgjofunw[address] [place] [address]Dr. Garima Pulliam IG % 0.3 % Normal 0.0-0.5 [facility] Comment on above: Performed By: #### C BC ####[facility] Vecwerqdub[address] [place], [place] [address]Dr. Chapisrenu Pulliam LYMPH # 2.1 103/ul Normal 1.2-3.8 [facility] Comment on above: Performed By: #### C BC ####[facility] Maozwufroj[address] [place], [place] [address]Dr. Chapisrenu Pulliam Lymphocytes/100 WBC (Bld) 24.2 % Normal 20.5-60.0 [facility] Comment on above: Performed By: #### C BC ####[facility] [address]xb[address] [place] [address]Dr. Garima Pulliam MANUAL DIFF REQ NO Normal [facility] Comment on above: Performed By: #### C BC ####[facility] [address]jrtkeez[address] [place] [address]Dr. Garima Pulliam MCH (RBC) [Entitic mass] 30.2 pg Normal 25.9-34.0 [facility] Comment on above: Performed By: #### C BC ####[facility] Cntmddjkld[address] [place] [address]Dr. Garima Pulliam MCHC (RBC) [Mass/Vol] 33.5 g/dL Normal 29.9-35.2 [facility] Comment on above: Performed By: #### C BC ####[facility] Vcletfsxrq[address] [place] [id number]. Garima Pulliam MCV (RBC) [Entitic vol] 90.1 fL Normal 80.0-94.0 [facility] Comment on above: Performed By: #### C BC ####[facility] Aoeogivypw[address] [place] [id number]. Garima Pulliam MONO # 0.6 103/ul Normal 0.3-0.8 [facility] Comment on above: Performed By: #### C BC ####[facility] Zhnpuszdaq65[address] [place] [address]Dr. Garima Heraclio Monocytes/100 WBC (Bld) 7.4 % Normal 1.7-12.0 [facility] Comment on above: Performed By: #### C BC ####[facility] Afmgdeodeg98[address] [place], [place] [address]Dr. Garima Pulliam NEUT # 5.6 103/ul Normal 1.4-6.5 [facility] Comment on above: Performed By: #### C BC ####[facility] Uqmrxtfovg[address] [place], [place] [address]Dr. Garima Heraclio Neutrophils/100 WBC (Bld) 65.2 % Normal 43.0-75.0 [facility] Comment on above: Performed By: #### C BC ####[facility] Hkiabzoauj9[address] [place] [phone]. Garima Heraclio Platelet mean volume (Bld) [Entitic vol] 8.7 fL Critically low 9.5-13.5 [facility] Comment on above: Performed By: #### C BC ####[facility] Ol[address]detvfra[address] [place], [place] [id number]. Garima Heraclio PLT 195 103/ul Normal 150-450 [facility] Comment on above: Performed By: #### C BC ####[facility] Zozolssmoe[address] [place] [phone]. Garima Pulliam RBC 4.64 106/ul Critically low 4.70-6.10 [facility] Comment on above: Performed By: #### C BC ####[facility] [address]rchxblx[address] [place] [address]Dr. Garima Pulliam WBC 8.6 103/ul Normal 4.0-11.0 [facility] Comment on above: Performed By: #### C BC ####[facility] Vvtix[address]sdx[address] [place] [address]Dr. Garima Pulliam PROF CHEM 8 (BAS METB)on Anion gap [Moles/Vol] 6.7 mmol/L Normal [facility] Comment on above: Performed By: #### B BUTTON MAKER AND INSTALLER, BMP, HSTROPN ####[facility] Fpgeytrpei[address] [place] [address]Dr. Garima Pulliam Calcium [Mass/Vol] 8.8 mg/dL Normal 8.5-10.1 [facility] Comment on above: Performed By: #### B BUTTON MAKER AND INSTALLER, BMP, HSTROPN ####[facility] Jkklmoqjjt[address] [place], [place] [address]Dr. Garima Pulliam Chloride [Moles/Vol] 106 mmol/L Normal 98-107 [facility] Comment on above: Performed By: #### B BUTTON MAKER AND INSTALLER, BMP, HSTROPN ####[facility] Mgsuveiamw[address] [place], [place] [address]Dr. Garima Pulliam CO2 [Moles/Vol] 31.4 mmol/L Normal 21.0-32.0 [facility] Comment on above: Performed By: #### B BUTTON MAKER [employer] INSTALLER, BMP, HSTROPN ####[facility] [address]qolocqjb17[address] [place], [place] [address]Dr. Garima Pulliam Creatinine [Mass/Vol] 0.75 mg/dL Normal 0.70-1.30 [facility] Comment on above: Performed By: #### B BUTTON MAKER AND INSTALLER, BMP, HSTROPN ####[facility] [address]qzmni[address] [place] [address]Dr. Garima Pulliam EGFR-AF URUGUAYAN >60 Normal >=60 [facility] Comment on above: Performed By: #### B BUTTON MAKER AND INSTALLER, BMP, HSTROPN ####[facility] [address]spiduuh[address] [place] [address]Dr. Garima Pulliam EGFR-NON AF URUGUAYAN >60 Normal >=60 [facility] Comment on above: Performed By: #### B BUTTON MAKER [employer] INSTALLER, BMP, HSTROPN ####[facility] [address]fou[address] [place] [address]Dr. Garima Pulliam Glucose [Mass/Vol] 161 mg/dL Critically high 74-106 [facility] Comment on above: Performed By: #### B BUTTON MAKER AND INSTALLER, BMP, HSTROPN ####[facility] [address]wtbdczl[address] [place] [address]Dr. Garima Pulliam Potassium [Moles/Vol] 4.1 mmol/L Normal 3.5-5.1 [facility] Comment on above: Performed By: #### B BUTTON MAKER AND INSTALLER, BMP, HSTROPN ####[facility] Ig[address]af[address]lr[address] [place] [address]Dr. Garima Pulliam Sodium [Moles/Vol] 140 mmol/L Normal 136-145 [facility] Comment on above: Performed By: #### B BUTTON MAKER AND INSTALLER, BMP, HSTROPN ####[facility] [address]ztqlz[address] [place] [address]Dr. Garima Pulliam Urea nitrogen [Mass/Vol] 7.0 mg/dL Normal 7.0-18.0 [facility] Comment on above: Performed By: #### B BUTTON MAKER AND INSTALLER, BMP, HSTROPN ####[facility] I[address]vbldqh[address] [place] [address]Dr. Garima Pulliam Urea nitrogen/Creatinine [Mass ratio] 9.3 mg/mg Normal [facility] Comment on above: Performed By: #### B BUTTON MAKER AND INSTALLER, BMP, HSTROPN ####[facility] [address]fe[address] [place] [address]Dr. Garima Pulliam TROPONIN, HIGH SENSITIVITYon 03-16-2023 HSTROP 9.7 pg/mL Normal 4.0-76.1 [facility] Comment on above: Result Comment: CUT- OFF POINTS HAVE BEEN ESTABLISHED BASED ON THE FOURTH UNIVERSAL DEFINITIONS OF MYOCARDIALINFARCTION. THE UPPER REFERENCE LIMIT (URL) OF TROPONIN, DEFINED THE 99TH PERCENTILE OFcTnI DISTRIBUTION IN A REFERENCE POPULATION, HAS BEEN CONFIRMED THE DECISION THRESHOLDFOR [place] DIAGNOSIS. Performed By: #### B BUTTON MAKER AND INSTALLER, BMP, HSTROPN ####[facility] [address]ftyrk[address] [place] [address]Dr. Garima Pulliam XR CHEST 1 Von 03-16-2023 XR CHEST 1 V Normal [facility] BNPon 03-06-2023 Natriuretic peptide B (Bld) [Mass/Vol] 111.0 pg/mL Normal <=900.0 [facility] Comment on above: Performed By: #### C MP, BNP, CK ####[facility] [address]opxrr[address] [place] [address]Dr. Chapisrenu Pulliam CBC AUTO DIFFon 03-06-2023 BASO # 0.0 103/ul Normal 0.0-0.1 [facility] Comment on above: Performed By: #### C BC ####[facility] Mioyznw[address] [place], [place] [address]Dr. Garima Pulliam Basophils/100 WBC (Bld) 0.2 % Normal 0.2-2.0 [facility] Comment on above: Performed By: #### C BC ####[facility] Hquvwguufj[address] [place], [place] [address]Dr. Garima Pulliam EO # 0.3 103/ul Normal 0.0-0.7 [facility] Comment on above: Performed By: #### C BC ####[facility] Flsihxwgru[address] [place], [place] [address]Dr. Garima Pulliam Eosinophils/100 WBC (Bld) 3.5 % Normal 0.9-7.0 [facility] Comment on above: Performed By: #### C BC ####[facility] Vvefpkhqiq[address] [place], [place] [address]Dr. Garima Pulliam Erythrocyte distribution width (RBC) [Ratio] 13.3 % Normal 11.0-15.0 [facility] Comment on above: Performed By: #### C BC ####[facility] Dmfruduuhw[address] [place], [place] [address]Dr. Garima Pulliam Hematocrit (Bld) [Volume fraction] 43.7 % Normal 42.0-54.0 [facility] Comment on above: Performed By: #### C BC ####[facility] [address]iviknei[address] [place] [address]Dr. Garima Pulliam Hemoglobin (Bld) [Mass/Vol] 14.7 g/dL Normal 14.0-18.0 [facility] Comment on above: Performed By: #### C BC ####[facility] Cjvcgztaeg7[address] [place] [address]Dr. Chapisrenu Heraclio IG # 0.03 10e3/ul Normal 0.00-0.03 [facility] Comment on above: Performed By: #### C BC ####[facility] Gkievqhyqn[address] [place], [place] [address]Dr. Garima Pulliam IG % 0.4 % Normal 0.0-0.5 [facility] Comment on above: Performed By: #### C BC ####[facility] Lmzesjfaji[address] [place], [place] [address]Dr. Garima Pulliam LYMPH # 2.0 103/ul Normal 1.2-3.8 [facility] Comment on above: Performed By: #### C BC ####[facility] Ulxrikbjsf[address] [place], [place] [address]DrAdalberto Pulliam Lymphocytes/100 WBC (Bld) 23.7 % Normal 20.5-60.0 [facility] Comment on above: Performed By: #### C BC ####[facility] [address]mtlnmcfah[address] [place] [address]Dr. Garima Pulliam MANUAL DIFF REQ NO Normal [facility] Comment on above: Performed By: #### C BC ####[facility] [address]spugkwbn5[address] [place] [phone] Pulliam MCH (RBC) [Entitic mass] 30.1 pg Normal 25.9-34.0 [facility] Comment on above: Performed By: #### C BC ####[facility] Yrpmuueeyh8220 [place] [phone]. Garima Pulliam MCHC (RBC) [Mass/Vol] 33.6 g/dL Normal 29.9-35.2 [facility] Comment on above: Performed By: #### C BC ####[facility] [address]drgjgo[address] [place] [address]Dr. Garima Heraclio MCV (RBC) [Entitic vol] 89.4 fL Normal 80.0-94.0 [facility] Comment on above: Performed By: #### C BC ####[facility] Zirvexhnof4[address] [place] [address]Dr. Garima Pulliam MONO # 0.8 103/ul Normal 0.3-0.8 [facility] Comment on above: Performed By: #### C BC ####[facility] Avwgbmhhuu47[address] [place] [address]Dr. Garima Pulliam Monocytes/100 WBC (Bld) 9.0 % Normal 1.7-12.0 [facility] Comment on above: Performed By: #### C BC ####[facility] Pefytbbo[address] [place], [place] [address]Dr. Garima Pulliam NEUT # 5.4 103/ul Normal 1.4-6.5 [facility] Comment on above: Performed By: #### C BC ####[facility] He[address] [place], [place] [address]Dr. Garima Pulliam Neutrophils/100 WBC (Bld) 63.2 % Normal 43.0-75.0 [facility] Comment on above: Performed By: #### C BC ####[facility] Kuqnomxhpb[address] [place], [place] [address]Dr. Garima Pulliam Platelet mean volume (Bld) [Entitic vol] 9.0 fL Critically low 9.5-13.5 [facility] Comment on above: Performed By: #### C BC ####[facility] Tgkjtrbwfa[address] [place], [place] [address]Dr. Garima Pulliam PLT 218 103/ul Normal 150-450 [facility] Comment on above: Performed By: #### C BC ####[facility] Entuzwueju[address] [place] [phone]. Garima Pulliam RBC 4.89 106/ul Normal 4.70-6.10 [facility] Comment on above: Performed By: #### C BC ####[facility] Scgtkpzplc7[address] [place] [address]Dr. Garima Pulliam WBC 8.5 103/ul Normal 4.0-11.0 [facility] Comment on above: Performed By: #### C BC ####[facility] [address]zzxzgi[address] [place] [address]Dr. Garima Pulliam CPKon 03-06-2023 CK [Catalytic activity/Vol] 191 U/L Normal 39-308 [facility] Comment on above: Performed By: #### C MP, BNP, CK ####[facility] Tvcpxqwidc[address] [place] [address]Dr. Garima Pulliam PROF 14(COMP METB)on 023 Albumin [Mass/Vol] 3.6 g/dL Normal 3.4-5.0 [facility] Comment on above: Performed By: #### C MP, BNP, CK ####[facility] Kigtxuwgqw45[address] [place] [address]Dr. Garima Pulliam Albumin/Globulin [Mass ratio] 1.2 {ratio} Normal [facility] Comment on above: Performed By: #### C MP, BNP, CK ####[facility] Vcuqoqyuof[address] [place] [address]Dr. Garima Pulliam ALP [Catalytic activity/Vol] 91 U/L Normal 46-116 [facility] Comment on above: Performed By: #### C MP, BNP, CK ####[facility] Nrlgwqmtsk6[address] [place] [address]Dr. Garima Pulliam ALT [Catalytic activity/Vol] 33 U/L Normal 16-63 [facility] Comment on above: Performed By: #### C MP, BNP, CK ####[facility] Zwvptjkykj3616 [place] [address]Dr. Garima Pulliam Anion gap [Moles/Vol] 10.3 mmol/L Normal [facility] Comment on above: Performed By: #### C MP, BNP, CK ####[facility] Njjfreemki4[address] [place] [address]Dr. Garima Pulliam AST [Catalytic activity/Vol] 17 U/L Normal 15-37 [facility] Comment on above: Performed By: #### C MP, BNP, CK ####[facility] Zohveijqzs6[address] [place] [address]Dr. Garima Pulliam Bilirubin [Mass/Vol] 0.4 mg/dL Normal 0.2-1.0 [facility] Comment on above: Performed By: #### C MP, BNP, CK ####[facility] [address]zvsfyb[address] [place] [address]Dr. Garima Pulliam Calcium [Mass/Vol] 9.1 mg/dL Normal 8.5-10.1 [facility] Comment on above: Performed By: #### C MP, BNP, CK ####[facility] Esimiwlbpp4[address] [place] [address]Dr. Garima Pulliam Chloride [Moles/Vol] 102 mmol/L Normal 98-107 [facility] Comment on above: Performed By: #### C MP, BNP, CK ####[facility] [address]qlgivnxx25[address] [place] [address]Dr. Garima Pulliam CO2 [Moles/Vol] 29.7 mmol/L Normal 21.0-32.0 [facility] Comment on above: Performed By: #### C MP, BNP, CK ####[facility] Jszlkhuisv6[address] [place] [address]Dr. Garima Pulliam Creatinine [Mass/Vol] 0.79 mg/dL Normal 0.70-1.30 [facility] Comment on above: Performed By: #### C MP, BNP, CK ####[facility] Eeahyyqhbl[address] [place] [address]Dr. Garima Pulliam EGFR-AF URUGUAYAN >60 Normal >=60 [facility] Comment on above: Performed By: #### C MP, BNP, CK ####[facility] Yfbhrqtulm43[address] [place] [address]Dr. Garima Pulliam EGFR-NON AF URUGUAYAN >60 Normal >=60 [facility] Comment on above: Performed By: #### C MP, BNP, CK ####[facility] Onycfbkjvw39[address] [place] [address]Dr. Garima Pulliam Globulin (S) [Mass/Vol] 3.0 g/dL Normal [facility] Comment on above: Performed By: #### C MP, BNP, CK ####[facility] Kbjggnxarc37[address] [place] [address]Dr. Garima Pulliam Glucose [Mass/Vol] 202 mg/dL Critically high 74-106 [facility] Comment on above: Performed By: #### C MP, BNP, CK ####[facility] Vuaogjdfnd[address] [place] [address]Dr. Garima Pulliam Potassium [Moles/Vol] 4.0 mmol/L Normal 3.5-5.1 [facility] Comment on above: Performed By: #### C MP, BNP, CK ####[facility] Gmstobkcde9767 [place] [address]Dr. Garima Pulliam Protein [Mass/Vol] 6.6 g/dL Normal 6.4-8.2 [facility] Comment on above: Performed By: #### C MP, BNP, CK ####[facility] Egkaavpdpg[address] [place], [place] [address]Dr. Garima Pulliam Sodium [Moles/Vol] 138 mmol/L Normal 136-145 [facility] Comment on above: Performed By: #### C MP, BNP, CK ####[facility] Bfnswpcxqj[address] [place], [place] [address]Dr. Garima Pulliam Urea nitrogen [Mass/Vol] 10.0 mg/dL Normal 7.0-18.0 [facility] Comment on above: Performed By: #### C MP, BNP, CK ####[facility] Bmvhipvgxh7[address] [place] [address]Dr. Garima Pulliam Urea nitrogen/Creatinine [Mass ratio] 12.7 mg/mg Normal [facility] Comment on above: Performed By: #### C MP, BNP, CK ####[facility] [address]wdiuxcv[address] [place] [address]Dr. Garima Pulliam US VERONICA DOP LEG BILon 023 US VERONICA DOP LEG BENOIT Normal [facility] CBC AUTO DIFFon 01-13-2023 BASO # 0.0 103/ul Normal 0.0-0.1 [facility] Comment on above: Performed By: #### C BC ####[facility] Pzgtxcyduc6869 [place] [id number]. Chapisrenu Pulliam Basophils/100 WBC (Bld) 0.0 % Critically low 0.2-2.0 [facility] Comment on above: Performed By: #### C BC ####[facility] Kcbcxwcfbw1052 [place] [address]Dr. Garima Pulliam EO # 0.0 103/ul Normal 0.0-0.7 [facility] Comment on above: Performed By: #### C BC ####[facility] Flgtqearhr[address] [place], [place] [address]Dr. Garima Pulliam Eosinophils/100 WBC (Bld) 0.0 % Critically low 0.9-7.0 [facility] Comment on above: Performed By: #### C BC ####[facility] Cjryaednkr[address] [place] [address]Dr. Garima Pulliam Erythrocyte distribution width (RBC) [Ratio] 13.2 % Normal 11.0-15.0 [facility] Comment on above: Performed By: #### C BC ####[facility] [address]pt[address]qw[address] [place], [place] [address]Dr. Garima Pulliam Hematocrit (Bld) [Volume fraction] 46.7 % Normal 42.0-54.0 [facility] Comment on above: Performed By: #### C BC ####[facility] [address]mcsfryclg[address] [place], [place] [address]Dr. Garima Pulliam Hemoglobin (Bld) [Mass/Vol] 15.6 g/dL Normal 14.0-18.0 [facility] Comment on above: Performed By: #### C BC ####[facility] [address]voq[address] [place], [place] [address]Dr. Garima Pulliam IG # 0.01 10e3/ul Normal 0.00-0.03 [facility] Comment on above: Performed By: #### C BC ####[facility] Lfxacapkpy5884 [place] [phone]. Garima Pulliam IG % 0.2 % Normal 0.0-0.5 [facility] Comment on above: Performed By: #### C BC ####[facility] Czorzkovma[address]841 [place] [phone]. Garima Pulliam LYMPH # 0.8 103/ul Critically low 1.2-3.8 [facility] Comment on above: Performed By: #### C BC ####[facility] Unaqclqhfg6161 [place] [phone]. Garima Pulliam Lymphocytes/100 WBC (Bld) 12.7 % Critically low 20.5-60.0 [facility] Comment on above: Performed By: #### C BC ####[facility] Wpavaaffyo5[address] [place] [address]Dr. Garima Pulliam MANUAL DIFF REQ NO Normal [facility] Comment on above: Performed By: #### C BC ####[facility] Xweyptyhry5508 [place] [phone]. Garima Pulliam MCH (RBC) [Entitic mass] 30.2 pg Normal 25.9-34.0 [facility] Comment on above: Performed By: #### C BC ####[facility] Bsdmsmvsbt0537 [place] [phone]. Garima Pulliam MCHC (RBC) [Mass/Vol] 33.4 g/dL Normal 29.9-35.2 [facility] Comment on above: Performed By: #### C BC ####[facility] Tlvaybjncx0121 [place] [phone]. Garima Pulliam MCV (RBC) [Entitic vol] 90.3 fL Normal 80.0-94.0 [facility] Comment on above: Performed By: #### C BC ####[facility] Euigpvpddi0256 [place] [phone]. Garima Heraclio MONO # 0.1 103/ul Critically low 0.3-0.8 [facility] Comment on above: Performed By: #### C BC ####[facility] Ktqapqjvis4567 [place] [phone]. Garima Pulliam Monocytes/100 WBC (Bld) 0.9 % Critically low 1.7-12.0 [facility] Comment on above: Performed By: #### C BC ####[facility] Yhjcouqero4501 [place] [phone]. Garima Pulliam NEUT # 5.6 103/ul Normal 1.4-6.5 [facility] Comment on above: Performed By: #### C BC ####[facility] Nvlbfzizqj5780 [place] [phone]. Garima Pulliam Neutrophils/100 WBC (Bld) 86.2 % Critically high 43.0-75.0 [facility] Comment on above: Performed By: #### C BC ####[facility] Omloyjysyb5519 [place] [address]Dr. Garima Pulliam Platelet mean volume (Bld) [Entitic vol] 9.1 fL Critically low 9.5-13.5 [facility] Comment on above: Performed By: #### C BC ####[facility] Xxfujnhsuh[address] [place], [place] [address]Dr. Garima Pulliam PLT 169 103/ul Normal 150-450 [facility] Comment on above: Performed By: #### C BC ####[facility] Vbjtmimliz[address] [place], [place] [address]Dr. Garima Pulliam RBC 5.17 106/ul Normal 4.70-6.10 [facility] Comment on above: Performed By: #### C BC ####[facility] Ujpomtdu[address] [place], [place] [id number]. Garima Pulliam WBC 6.5 103/ul Normal 4.0-11.0 [facility] Comment on above: Performed By: #### C BC ####[facility] Ltybkllrvp[address] [place], [place] [address]Dr. Garima Pulliam D-DIMERon 01-13-2023 D-DIMER 0.41 mg/L FEU Normal <=0.59 [facility] Comment on above: Performed By: #### D DIM ####[facility] [address]ivltnaqek[address] [place] [address]Dr. Garima Pulliam D-DIMER COMMENTS SEE BELOW Normal [...] generalized hospitalization. Performed By: #### D DIM ####[facility] Vvopqdjtul[address] [place], [place] [address]Dr. Garima Pulliam PROF 14(COMP METB)on 023 Albumin [Mass/Vol] 3.4 g/dL Normal 3.4-5.0 [facility] Comment on above: Performed By: #### C MP ####[facility] Sahfwsjyhq[address] [place], [place] [address]Dr. Garima Pulliam Albumin/Globulin [Mass ratio] 1.3 {ratio} Normal [facility] Comment on above: Performed By: #### C MP ####[facility] Tvnfvbhnjv6[address] [place], [place] [address]Dr. Garima Pulliam ALP [Catalytic activity/Vol] 83 U/L Normal 46-116 [facility] Comment on above: Performed By: #### C MP ####[facility] Ajccvmtchk[address] [place], [place] [address]Dr. Garima Pulliam ALT [Catalytic activity/Vol] 25 U/L Normal 16-63 [facility] Comment on above: Performed By: #### C MP ####[facility] Eajmzgjxye4983 [place] [address]Dr. Garima Pulliam Anion gap [Moles/Vol] 14.5 mmol/L Normal [facility] Comment on above: Performed By: #### C MP ####[facility] Iydwsxtcre[address] [place], [place] [address]Dr. Garima Pulliam AST [Catalytic activity/Vol] 19 U/L Normal 15-37 [facility] Comment on above: Performed By: #### C MP ####[facility] Agzspiguet74[address] [place], [place] [address]Dr. Garima Pulliam Bilirubin [Mass/Vol] 0.4 mg/dL Normal 0.2-1.0 [facility] Comment on above: Performed By: #### C MP ####[facility] Fbmhcwdjol15[address] [place], [place] [address]Dr. Garima Pulliam Calcium [Mass/Vol] 8.7 mg/dL Normal 8.5-10.1 [facility] Comment on above: Performed By: #### C MP ####[facility] Nmkavntpkc870[address] [place], [place] [address]Dr. Garima Pulliam Chloride [Moles/Vol] 104 mmol/L Normal 98-107 [facility] Comment on above: Performed By: #### C MP ####[facility] Ztljoaqcip[address] [place], [place] [address]Dr. Garima Pulliam CO2 [Moles/Vol] 24.5 mmol/L Normal 21.0-32.0 [facility] Comment on above: Performed By: #### C MP ####[facility] Jfsrwxtlbd17[address] [place], [place] [address]Dr. Garima Pulliam Creatinine [Mass/Vol] 0.70 mg/dL Normal 0.70-1.30 [facility] Comment on above: Performed By: #### C MP ####[facility] Kywzsidaow26[address] [place], [place] [address]Dr. Garima Heraclio EGFR-AF URUGUAYAN >60 Normal >=60 [facility] Comment on above: Performed By: #### C MP ####[facility] Nkeetegfqo[address] [place], [place] [address]Dr. Chapisrenu Heraclio EGFR-NON AF URUGUAYAN >60 Normal >=60 [facility] Comment on above: Performed By: #### C MP ####[facility] Zgovqkgehc8[address] [place], [place] [address]Dr. Chapisrenu Pulliam Globulin (S) [Mass/Vol] 2.6 g/dL Normal [facility] Comment on above: Performed By: #### C MP ####[facility] Dhdbjyiogg2947 [place] [address]Dr. Garima Pulliam Glucose [Mass/Vol] 196 mg/dL Critically high 74-106 [facility] Comment on above: Performed By: #### C MP ####[facility] Jnbtugxoep3856 [place] [address]Dr. Garima Pulliam Potassium [Moles/Vol] 4.0 mmol/L Normal 3.5-5.1 [facility] Comment on above: Performed By: #### C MP ####[facility] Leohghofqr7837 [place] [address]Dr. Garima Pulliam Protein [Mass/Vol] 6.0 g/dL Critically low 6.4-8.2 [facility] Comment on above: Performed By: #### C MP ####[facility] Utiheuybct[address] [place], [place] [address]Dr. Garima Pulliam Sodium [Moles/Vol] 139 mmol/L Normal 136-145 [facility] Comment on above: Performed By: #### C MP ####[facility] Cidezkklsw[address] [place], [place] [address]Dr. Garima Pulliam Urea nitrogen [Mass/Vol] 7.0 mg/dL Normal 7.0-18.0 [facility] Comment on above: Performed By: #### C MP ####[facility] Ealyrymxqp34[address] [place], [place] [address]Dr. Garima Heraclio Urea nitrogen/Creatinine [Mass ratio] 10.0 mg/mg Normal [facility] Comment on above: Performed By: #### C MP ####[facility] Okctcpeqzr[address] [place], [place] [address]Dr. Garima Heraclio BNPon 01-12-2023 Natriuretic peptide B (Bld) [Mass/Vol] 141.0 pg/mL Normal <=900.0 [facility] Comment on above: Performed By: #### C MP, BNP, HSTROPN ####[facility] Bxmoxpgbcm9[address] [place], [place] [address]Dr. Garima Heraclio CBC AUTO DIFFon 01-12-2023 BASO # 0.0 103/ul Normal 0.0-0.1 [facility] Comment on above: Performed By: #### C BC ####[facility] Cwatrwipbw[address] [place] [id number]. Garima Heraclio Basophils/100 WBC (Bld) 0.2 % Normal 0.2-2.0 [facility] Comment on above: Performed By: #### C BC ####[facility] Iziyvpudsu232[address] [place] [address]Dr. Garima Heraclio EO # 0.2 103/ul Normal 0.0-0.7 [facility] Comment on above: Performed By: #### C BC ####[facility] Wrvjqcqexo5365 [place] [address]Dr. Garima Heraclio Eosinophils/100 WBC (Bld) 2.7 % Normal 0.9-7.0 [facility] Comment on above: Performed By: #### C BC ####[facility] Afuqteryqm462[address] [place], [place] [address]Dr. Garima Pulliam Erythrocyte distribution width (RBC) [Ratio] 13.3 % Normal 11.0-15.0 [facility] Comment on above: Performed By: #### C BC ####[facility] Tovpywuonl[address] [place], [place] [address]Dr. Garima Pulliam Hematocrit (Bld) [Volume fraction] 42.3 % Normal 42.0-54.0 [facility] Comment on above: Performed By: #### C BC ####[facility] Toiswrtulw01[address] [place], [place] [address]Dr. Garima Pulliam Hemoglobin (Bld) [Mass/Vol] 14.3 g/dL Normal 14.0-18.0 [facility] Comment on above: Performed By: #### C BC ####[facility] Jcqunvdcwk435[address] [place], [place] [address]Dr. Garima Pulliam IG # 0.02 10e3/ul Normal 0.00-0.03 [facility] Comment on above: Performed By: #### C BC ####[facility] Xqzzxaskgd13[address] [place] [id number]. Garima Pulliam IG % 0.2 % Normal 0.0-0.5 [facility] Comment on above: Performed By: #### C BC ####[facility] Cubayjzlih[address] [place] [id number]. Garima Pulliam LYMPH # 2.6 103/ul Normal 1.2-3.8 [facility] Comment on above: Performed By: #### C BC ####[facility] Lswlbttvfn58[address] [place] [id number]. Garima Heraclio Lymphocytes/100 WBC (Bld) 29.6 % Normal 20.5-60.0 [facility] Comment on above: Performed By: #### C BC ####[facility] Uxnvjgjrhr5[address] [place] [address]Dr. Garima Heraclio MANUAL DIFF REQ NO Normal [facility] Comment on above: Performed By: #### C BC ####[facility] Mbgfznclmu69[address] [place] [phone]. Garima Pulliam MCH (RBC) [Entitic mass] 30.2 pg Normal 25.9-34.0 [facility] Comment on above: Performed By: #### C BC ####[facility] Taetddoudv[address] [place] [address]Dr. Garima Pulliam MCHC (RBC) [Mass/Vol] 33.8 g/dL Normal 29.9-35.2 [facility] Comment on above: Performed By: #### C BC ####[facility] Xyidzoqsne94[address] [place] [phone]. Garima Pulliam MCV (RBC) [Entitic vol] 89.2 fL Normal 80.0-94.0 [facility] Comment on above: Performed By: #### C BC ####[facility] Kequsfwgrj[address] [place], [place] [address]Dr. Chapisrenu Pulliam MONO # 0.7 103/ul Normal 0.3-0.8 [facility] Comment on above: Performed By: #### C BC ####[facility] Ponqkcmeag[address] [place] [phone]. Garima Pulliam Monocytes/100 WBC (Bld) 8.3 % Normal 1.7-12.0 [facility] Comment on above: Performed By: #### C BC ####[facility] Jqjmocffmh4611 [place] [id number]. Garima Pulliam NEUT # 5.1 103/ul Normal 1.4-6.5 [facility] Comment on above: Performed By: #### C BC ####[facility] Uuevcaoeyg4301 [place] [phone]. Garima Pulliam Neutrophils/100 WBC (Bld) 59.0 % Normal 43.0-75.0 [facility] Comment on above: Performed By: #### C BC ####[facility] Ygptuqfysf1903 [place] [address]Dr. Garima Pulliam Platelet mean volume (Bld) [Entitic vol] 8.7 fL Critically low 9.5-13.5 [facility] Comment on above: Performed By: #### C BC ####[facility] Vbmcvpmxxx6[address] [place] [address]Dr. Garima Pulliam PLT 182 103/ul Normal 150-450 [facility] Comment on above: Performed By: #### C BC ####[facility] Zjqxujunxu1597 [place] [id number]. Garima Pulliam RBC 4.74 106/ul Normal 4.70-6.10 [facility] Comment on above: Performed By: #### C BC ####[facility] Whyknoksh[address] [place], [place] [address]Dr. Garima Pulliam WBC 8.7 103/ul Normal 4.0-11.0 [facility] Comment on above: Performed By: #### C BC ####[facility] Aifkcglabh[address] [place], [place] [address]Dr. Garima Pulliam Covid-19 PCR (CVDTB)on 12-25 SARS-CoV-2 (COVID-19) RNA MARIE+probe Ql (Unsp spec) Not detected Normal NOT DETECTED [facility] Comment on above: Result Comment: When [...] for this test is supported by the [place] of [employer] and Human Service's declaration that [...] be used). Performed By: #### C VDTBH ####[facility] [address]ajbxaqx28[address] [place] [address]Dr. Garima Pulliam PROF 14(COMP METB)on 023 Albumin [Mass/Vol] 3.6 g/dL Normal 3.4-5.0 [facility] Comment on above: Performed By: #### C MP, BNP, HSTROPN ####[facility] Bsnvmxqkiu4[address] [place] [address]Dr. Garima Pulliam Albumin/Globulin [Mass ratio] 1.5 {ratio} Normal [facility] Comment on above: Performed By: #### C MP, BNP, HSTROPN ####[facility] S[address]iabslpj[address] [place] [address]Dr. Garima Pulliam ALP [Catalytic activity/Vol] 79 U/L Normal 46-116 [facility] Comment on above: Performed By: #### C MP, BNP, HSTROPN ####[facility] Lmkoazxnge5203 [place] [address]Dr. Garima Pulliam ALT [Catalytic activity/Vol] 27 U/L Normal 16-63 [facility] Comment on above: Performed By: #### C MP, BNP, HSTROPN ####[facility] Nmryrhcuth1046 [place] [address]Dr. Garima Pulliam Anion gap [Moles/Vol] 11.7 mmol/L Normal [facility] Comment on above: Performed By: #### C MP, BNP, HSTROPN ####[facility] Rixjzedecu7[address] [place] [address]Dr. Garima Pulliam AST [Catalytic activity/Vol] 21 U/L Normal 15-37 [facility] Comment on above: Performed By: #### C MP, BNP, HSTROPN ####[facility] Sghhkemust2341 [place] [address]Dr. Garima Pulliam Bilirubin [Mass/Vol] 0.3 mg/dL Normal 0.2-1.0 [facility] Comment on above: Performed By: #### C MP, BNP, HSTROPN ####[facility] Varhptalva4361 [place] [address]Dr. Garima Pulliam Calcium [Mass/Vol] 8.9 mg/dL Normal 8.5-10.1 [facility] Comment on above: Performed By: #### C MP, BNP, HSTROPN ####[facility] Adcgehbrqi9652 [place] [address]Dr. Garima Pulliam Chloride [Moles/Vol] 107 mmol/L Normal 98-107 [facility] Comment on above: Performed By: #### C MP, BNP, HSTROPN ####[facility] Aoeqgbmqyo8720 [place] [address]Dr. Garima Pulliam CO2 [Moles/Vol] 26.0 mmol/L Normal 21.0-32.0 [facility] Comment on above: Performed By: #### C MP, BNP, HSTROPN ####[facility] Usraikektd2105 [place] [address]Dr. Garima Pulliam Creatinine [Mass/Vol] 0.65 mg/dL Critically low 0.70-1.30 [facility] Comment on above: Performed By: #### C MP, BNP, HSTROPN ####[facility] Tdhcfdlscg[address] [place] [address]Dr. Yilan Pulliam EGFR-AF URUGUAYAN >60 Normal >=60 [facility] Comment on above: Performed By: #### C MP, BNP, HSTROPN ####[facility] Tcotkypfot[address] [place] [address]Dr. Garima Pulliam EGFR-NON AF URUGUAYAN >60 Normal >=60 [facility] Comment on above: Performed By: #### C MP, BNP, HSTROPN ####[facility] Pcqiooflvk4199 [place] [address]Dr. Garima Pulliam Globulin (S) [Mass/Vol] 2.4 g/dL Normal [facility] Comment on above: Performed By: #### C MP, BNP, HSTROPN ####[facility] Mdwevxtiyw[address] [place], [place] [address]Dr. Garima Pulliam Glucose [Mass/Vol] 85 mg/dL Normal 74-106 [facility] Comment on above: Performed By: #### C MP, BNP, HSTROPN ####[facility] Birjebmqih66[address] [place] [address]Dr. Garima Pulliam Potassium [Moles/Vol] 3.7 mmol/L Normal 3.5-5.1 [facility] Comment on above: Performed By: #### C MP, BNP, HSTROPN ####[facility] Kvmwhfnmut2429 [place] [address]Dr. Garima Pulliam Protein [Mass/Vol] 6.0 g/dL Critically low 6.4-8.2 [facility] Comment on above: Performed By: #### C MP, BNP, HSTROPN ####[facility] Ibhslzhumg8617 [place] [address]Dr. Graima Pulliam Sodium [Moles/Vol] 141 mmol/L Normal 136-145 [facility] Comment on above: Performed By: #### C MP, BNP, HSTROPN ####[facility] Ftxdomwjkt4126 [place] [address]Dr. Garima Pulliam Urea nitrogen [Mass/Vol] 5.0 mg/dL Critically low 7.0-18.0 [facility] Comment on above: Performed By: #### C MP, BNP, HSTROPN ####[facility] Mnuqpdkekp1412 [place] [address]Dr. Garima Pulliam Urea nitrogen/Creatinine [Mass ratio] 7.7 mg/mg Normal [facility] Comment on above: Performed By: #### C MP, BNP, HSTROPN ####[facility] Fentkhmils4[address] [place] [address]Dr. Garima Pulliam PROTIMEon 01-12-2023 INR Coag (PPP) [Relative time] 1.16 {INR} Normal [facility] Comment on above: Performed By: #### P TT, PT ####[facility] Pngicpabgp8464 [place] [address]Dr. Garima Pulliam INR GUIDELINES SEE BELOW Normal [facility] Comment on above: Result Comment: WESLEY RED INR: 2.0 - 3.0 CONDITIONS NOT LISTED BELOW 2.5 - 3.5 FOR PROSTHETIC HEART VALVE REPLACEMENT 2.5 - 3.5 RECURRENT THROMBOSIS Performed By: #### P TT, PT ####[facility] Rchpefyfnw[address] [place], [place] [address]Dr. Garima Pulliam PT Coag (PPP) [Time] 12.2 s Critically high 9.0-11.6 [facility] Comment on above: Performed By: #### P TT, PT ####[facility] Pfgprcvuqo9622 [place] [address]Dr. Garima Pulliam PTTon 01-12-2023 aPTT Coag (Bld) [Time] 29.1 s Normal 22.3-36.2 [facility] Comment on above: Performed By: #### P TT, PT ####[facility] [address]vjfhdmxu[address] [place], [place] [address]Dr. Garima Pulliam TROPONIN, HIGH SENSITIVITYon 01-12-2023 HSTROP 10.3 pg/mL Normal 4.0-76.1 [facility] Comment on above: Result Comment: CUT- OFF POINTS HAVE BEEN ESTABLISHED BASED ON THE FOURTH UNIVERSAL DEFINITIONS OF MYOCARDIALINFARCTION. THE UPPER REFERENCE LIMIT (URL) OF TROPONIN, DEFINED THE 99TH PERCENTILE OFcTnI DISTRIBUTION IN A REFERENCE POPULATION, HAS BEEN CONFIRMED THE DECISION THRESHOLDFOR [place] DIAGNOSIS. Performed By: #### H STROPN ####[facility] Jmuxoclgqs4081 [place] [address]Dr. Garima Pulliam HSTROP 9.2 pg/mL Normal 4.0-76.1 [facility] Comment on above: Result Comment: CUT- OFF POINTS HAVE BEEN ESTABLISHED BASED ON THE FOURTH UNIVERSAL DEFINITIONS OF MYOCARDIALINFARCTION. THE UPPER REFERENCE LIMIT (URL) OF TROPONIN, DEFINED THE 99TH PERCENTILE OFcTnI DISTRIBUTION IN A REFERENCE POPULATION, HAS BEEN CONFIRMED THE DECISION THRESHOLDFOR [place] DIAGNOSIS. Performed By: #### C MP, BNP, HSTROPN ####[facility] Wdigflmxsj6842 [place] [address]Dr. Garima Pulliam XR CHEST 1 Von 01-12-2023 XR CHEST 1 V Normal [facility] XR CHEST 1 Von 01-01-2023 XR CHEST 1 V Normal [facility] CARDIAC NASH 3-6on 3 CK [Catalytic activity/Vol] 196 U/L Normal 39-308 [facility] Comment on above: Performed By: #### C MREP ####[facility] Candszoxir[address] [place] [address]Dr. Garima Pulliam CK.MB [Mass/Vol] 7.41 ng/mL Critically high <=3.60 [facility] Comment on above: Performed By: #### C MREP ####[facility] Ibosliqozv7424 [place] [address]Dr. Garima Pulliam HSTROP 10.3 pg/mL Normal 4.0-76.1 [facility] Comment on above: Result Comment: CUT- OFF POINTS HAVE BEEN ESTABLISHED BASED ON THE FOURTH UNIVERSAL DEFINITIONS OF MYOCARDIALINFARCTION. THE UPPER REFERENCE LIMIT (URL) OF TROPONIN, DEFINED THE 99TH PERCENTILE OFcTnI DISTRIBUTION IN A REFERENCE POPULATION, HAS BEEN CONFIRMED THE DECISION THRESHOLDFOR [place] DIAGNOSIS. Performed By: #### C MREP ####[facility] Jlzhbbrgxz9415 [place] [id number]. Garima Pulliam XR CHEST 1 Von 12-26-2022 XR CHEST 1 V Normal [facility] BNPon 12-25-2022 Natriuretic peptide B (Bld) [Mass/Vol] 98.0 pg/mL Normal <=900.0 [facility] Comment on above: Performed By: #### B MARIVN FRENCH CMADM ####[facility] Vsffrwdwim39[address] [place] [address]Dr. Garima Pulliam CARDIAC NASH ADMITon 023 CK [Catalytic activity/Vol] 208 U/L Normal 39-308 [facility] Comment on above: Performed By: #### B MARVIN FRENCH CMADM ####[facility] Kugjyppzwm3249 [place] [address]Dr. Garima Pulliam CK.MB [Mass/Vol] 7.63 ng/mL Critically high <=3.60 [facility] Comment on above: Performed By: #### B MARVIN FRENCH CMADM ####[facility] H[address]jgcuztp[address] [place], [place] [address]Dr. Garima Pulliam HSTROP 8.8 pg/mL Normal 4.0-76.1 [facility] Comment on above: Result Comment: CUT- OFF POINTS HAVE BEEN ESTABLISHED BASED ON THE FOURTH UNIVERSAL DEFINITIONS OF MYOCARDIALINFARCTION. THE UPPER REFERENCE LIMIT (URL) OF TROPONIN, DEFINED THE 99TH PERCENTILE OFcTnI DISTRIBUTION IN A REFERENCE POPULATION, HAS BEEN CONFIRMED THE DECISION THRESHOLDFOR [place] DIAGNOSIS. Performed By: #### B MARVIN FRENCH CMADM ####[facility] Opslwnobux9[address] [place], [place] [address]Dr. Garima Pulliam DORIS 83 ng/mL Normal 16-96 [facility] Comment on above: Performed By: #### B MARVIN FRENCH CMADM ####[facility] Twadcmpqex3[address] [place], [place] [address]Dr. Garima Pulliam CBC AUTO DIFFon 12-25-2022 BASO # 0.0 103/ul Normal 0.0-0.1 [facility] Comment on above: Performed By: #### C BC ####[facility] Mwonpldbot8[address] [place], [place] [address]Dr. Garima Pulliam Basophils/100 WBC (Bld) 0.0 % Critically low 0.2-2.0 [facility] Comment on above: Performed By: #### C BC ####[facility] Hndoryzqwd2788 [place] [address]Dr. Garima Pulliam EO # 0.0 103/ul Normal 0.0-0.7 [facility] Comment on above: Performed By: #### C BC ####[facility] Lylqamhavu8[address] [place], [place] [address]Dr. Garima Pulliam Eosinophils/100 WBC (Bld) 0.7 % Critically low 0.9-7.0 [facility] Comment on above: Performed By: #### C BC ####[facility] Ruftytrogn[address] [place], [place] [address]Dr. Garima Pulliam Erythrocyte distribution width (RBC) [Ratio] 13.4 % Normal 11.0-15.0 [facility] Comment on above: Performed By: #### C BC ####[facility] Japwcliubf46[address] [place], [place] [address]Dr. Garima Pulliam Hematocrit (Bld) [Volume fraction] 42.9 % Normal 42.0-54.0 [facility] Comment on above: Performed By: #### C BC ####[facility] Tprbmtwncx[address] [place], [place] [address]Dr. Garima Pulliam Hemoglobin (Bld) [Mass/Vol] 14.4 g/dL Normal 14.0-18.0 [facility] Comment on above: Performed By: #### C BC ####[facility] Sigpwxrgyz736[address] [place], [place] [address]Dr. Garima Pulliam IG # 0.00 10e3/ul Normal 0.00-0.03 [facility] Comment on above: Performed By: #### C BC ####[facility] Poprfeccjk0325[address] [place], [place] [address]Dr. Garima Pulliam IG % 0.0 % Normal 0.0-0.5 [facility] Comment on above: Performed By: #### C BC ####[facility] Jydmazzqny[address] [place], [place] [address]Dr. Garima Pulliam LYMPH # 2.4 103/ul Normal 1.2-3.8 [facility] Comment on above: Performed By: #### C BC ####[facility] Znndwutpqe6828 [place] [id number]. Chapisrenu Pulliam Lymphocytes/100 WBC (Bld) 29.2 % Normal 20.5-60.0 [facility] Comment on above: Performed By: #### C BC ####[facility] Qsutqbdyts9643 [place] [phone]. Garima Pulliam MANUAL DIFF REQ NO Normal [facility] Comment on above: Performed By: #### C BC ####[facility] Ptxdwwsppa1379 [place] [phone]. Garima Pulliam MCH (RBC) [Entitic mass] 30.7 pg Normal 25.9-34.0 [facility] Comment on above: Performed By: #### C BC ####[facility] Jsxfismbef[address] [place], [place] [address]Dr. Garima Pulliam MCHC (RBC) [Mass/Vol] 33.6 g/dL Normal 29.9-35.2 [facility] Comment on above: Performed By: #### C BC ####[facility] [address]ztcr[address] [place], [place] [address]Dr. Garima Pulliam MCV (RBC) [Entitic vol] 91.5 fL Normal 80.0-94.0 [facility] Comment on above: Performed By: #### C BC ####[facility] Qjoneubkqx154[address] [place], [place] [address]Dr. Garima Pulliam MONO # 0.0 103/ul Critically low 0.3-0.8 [facility] Comment on above: Performed By: #### C BC ####[facility] Mwrwvvpnfn4469 [place] [address]Dr. Garima Pulliam Monocytes/100 WBC (Bld) 8.0 % Normal 1.7-12.0 [facility] Comment on above: Performed By: #### C BC ####[facility] [address] [place], [place] [address]Dr. Garima Pulliam NEUT # 5.1 103/ul Normal 1.4-6.5 [facility] Comment on above: Performed By: #### C BC ####[facility] Kqeqvwyxgy8440 [place], [place] [address]Gq. Garima Pulliam Neutrophils/100 WBC (Bld) 62.8 % Normal 43.0-75.0 [facility] Comment on above: Performed By: #### C BC ####[facility] Enxmtiymop1470 [place], [place] [address]Ot. Garima Pulliam Platelet mean volume (Bld) [Entitic vol] 8.6 fL Critically low 9.5-13.5 [facility] Comment on above: Performed By: #### C BC ####[facility] Fmbxqohlyh[address] [place] [id number]. Garima Pulliam PLT 200 103/ul Normal 150-450 [facility] Comment on above: Performed By: #### C BC ####[facility] Acbzblcerf8223 [place] [id number]. Garima Pulliam RBC 4.69 106/ul Critically low 4.70-6.10 [facility] Comment on above: Performed By: #### C BC ####[facility] Wmblmyavkb7304 [place], [place] [address]Ic. Garima Pulliam WBC 8.2 103/ul Normal 4.0-11.0 [facility] Comment on above: Performed By: #### C BC ####[facility] Lzismaynnt5792 [place], [place] [address]Bw. Garima Pulliam [facility]on SARS-CoV-2 (COVID-19) RNA MARIE+probe Ql (Unsp spec) Not detected Normal NOT DETECTED [facility] Comment on above: Result Comment: When [...] for this test is supported by the Bid Analyst of Health and Human Service's declaration [...] be used). Performed By: #### C VDTBH ####[facility] Tgkyjrbuud[address] [place], [place] [address]Dr. Garima Pulliam INFLUENZA A AND B AGon 12-25 INFLUANEGH SEE BELOW Normal [facility] Comment on above: Result Comment: Nega tive for Flu A protein angiten. Infection due to Flu A cannot be ruled out. Flu A angiten in the sample may be below the detection limit of the test. Performed By: #### I NFLUAB ####[facility] Uwvuuxcios[address] [place], [place] [address]Dr. Garima Pulliam INFLUBNEGH SEE BELOW Normal [facility] Comment on above: Result Comment: Nega tive for Flu B protein antigen. Infection due to Flu B cannot be ruled out. Flu B antigen in the sample may be below the detection limit of the test. Performed By: #### I NFLUAB ####[facility] Gedhwuaovf[address] [place], [place] [address]Dr. Garima Pulliam INFLUENZA A AG Negative Normal NEGATIVE SEE COMMENT [facility] Comment on above: Performed By: #### I NFLUAB ####[facility] Vlkkwdcykw[address] [place], [place] [address]Dr. renu [facility] INFLUENZA B AG Negative Normal NEGATIVE SEE COMMENT [facility] Comment on above: Performed By: #### I NFLUAB ####[facility] Pschihofbs[address] [place], [place] [address]Dr. Garima Pulliam PROF CHEM 8 (BAS METB)on Anion gap [Moles/Vol] 11.1 mmol/L Normal Th [facility] Comment on above: Performed By: #### B BUTTON MAKER AND INSTALLER, BMP, CMADM ####[facility] Wzfiwcanva[address] [place], [place] [address]Dr. Garima Pulliam Calcium [Mass/Vol] 8.5 mg/dL Normal 8.5-10.1 [facility] Comment on above: Performed By: #### B BUTTON MAKER AND INSTALLER, MARVIN, CMADM ####[facility] Ixchtcormb7014 [place] [phone]. Garima Pulliam Chloride [Moles/Vol] 106 mmol/L Normal 98-107 [facility] Comment on above: Performed By: #### B BUTTON MAKER AND INSTALLER, BMP, CMADM ####[facility] Alandwbjhx0813 [place] [address]Dr. Garima Pulliam CO2 [Moles/Vol] 27.4 mmol/L Normal 21.0-32.0 [facility] Comment on above: Performed By: #### B BUTTON MAKER AND INSTALLER, MARVIN, CMADM ####[facility] Ipmfzsbgpr7305 [place] [address]Dr. Garima Pulliam Creatinine [Mass/Vol] 0.65 mg/dL Critically low 0.70-1.30 [facility] Comment on above: Performed By: #### B BUTTON MAKER AND INSTALLER, MARVIN, CMADM ####[facility] Cnvyeaciji3072 [place] [address]Dr. Garima Pulliam EGFR-AF URUGUAYAN >60 Normal >=60 [facility] Comment on above: Performed By: #### B BUTTON MAKER AND INSTALLER, BMP, CMADM ####[facility] Aftwrsfuaa9172 [place] [address]Dr. Garima Pulliam EGFR-NON AF URUGUAYAN >60 Normal >=60 [facility] Comment on above: Performed By: #### B BUTTON MAKER AND INSTALLER, BMP, CMADM ####[facility] Pcsjsyrokk2396 [place] [address]Dr. Garima Pulliam Glucose [Mass/Vol] 140 mg/dL Critically high 74-106 [facility] Comment on above: Performed By: #### B BUTTON MAKER AND INSTALLER, BMP, CMADM ####[facility] Bbweucvxxa7447 [place] [address]Dr. Garima Pulliam Potassium [Moles/Vol] 3.5 mmol/L Normal 3.5-5.1 [facility] Comment on above: Performed By: #### B BUTTON MAKER AND INSTALLER, BMP, CMADM ####[facility] Nehdugdcbn1463 [place] [address]Dr. Garima Pulliam Sodium [Moles/Vol] 141 mmol/L Normal 136-145 [facility] Comment on above: Performed By: #### B BUTTON MAKER AND INSTALLER, BMP, CMADM ####[facility] Aeelllhupk9116 [place] [address]Dr. Garima Pulliam Urea nitrogen [Mass/Vol] 8.0 mg/dL Normal 7.0-18.0 [facility] Comment on above: Performed By: #### B BUTTON MAKER AND INSTALLER, BMP, CMADM ####[facility] Xdgudpfphy6260 [place] [address]Dr. Garima Pulliam Urea nitrogen/Creatinine [Mass ratio] 12.3 mg/mg Normal [facility] Comment on above: Performed By: #### B BUTTON MAKER AND INSTALLER, BMP, CMADM ####[facility] Astvbsmjku[address] [place], [place] [address]Dr. Garima Pulliam CARDIAC NASH ADMITon 023 CK [Catalytic activity/Vol] 165 U/L Normal 39-308 [facility] Comment on above: Performed By: #### B DAVID, CMADM ####[facility] Bvyodkrurd[address] [place], [place] [address]Dr. Garima Pulliam CK.MB [Mass/Vol] 6.48 ng/mL Critically high <=3.60 [facility] Comment on above: Performed By: #### B MP, CMADM ####[facility] Xophdnsmxe[address] [place], [place] [address]Dr. Garima Pulliam HSTROP 11.7 pg/mL Normal 4.0-76.1 [facility] Comment on above: Result Comment: CUT- OFF POINTS HAVE BEEN ESTABLISHED BASED ON THE FOURTH UNIVERSAL DEFINITIONS OF MYOCARDIALINFARCTION. THE UPPER REFERENCE LIMIT (URL) OF TROPONIN, DEFINED THE 99TH PERCENTILE OFcTnI DISTRIBUTION IN A REFERENCE POPULATION, HAS BEEN CONFIRMED THE DECISION THRESHOLDFOR [place] DIAGNOSIS. Performed By: #### B MP, CMADM ####[facility] Wlatxomeoa[address] [place], [place] [address]Dr. Garima Pulliam DORIS 83 ng/mL Normal 16-96 [facility] Comment on above: Performed By: #### B MP, CMADM ####[facility] Mrnaigeett6195 [place] [address]Dr. Garima Pulliam CBC AUTO DIFFon 12-10-2022 BASO # 0.0 103/ul Normal 0.0-0.1 [facility] Comment on above: Performed By: #### C BC ####[facility] Vptjathnlt[address] [place], [place] [address]Dr. Garima Heraclio Basophils/100 WBC (Bld) 0.3 % Normal 0.2-2.0 [facility] Comment on above: Performed By: #### C BC ####[facility] Fuceyffide[address] [place], [place] [address]Dr. Garima Pulliam EO # 0.1 103/ul Normal 0.0-0.7 [facility] Comment on above: Performed By: #### C BC ####[facility] Mkncmqioeq[address] [place], [place] [address]Dr. Garima Pulliam Eosinophils/100 WBC (Bld) 0.4 % Critically low 0.9-7.0 [facility] Comment on above: Performed By: #### C BC ####[facility] Mxamjqicso[address] [place], [place] [address]Dr. Garima Pulliam Erythrocyte distribution width (RBC) [Ratio] 13.2 % Normal 11.0-15.0 [facility] Comment on above: Performed By: #### C BC ####[facility] Tftlhafemg[address] [place], [place] [address]Dr. Garima Pulliam Hematocrit (Bld) [Volume fraction] 42.4 % Normal 42.0-54.0 [facility] Comment on above: Performed By: #### C BC ####[facility] Jpudouyolw[address] [place], [place] [address]Dr. Garima Pulliam Hemoglobin (Bld) [Mass/Vol] 14.4 g/dL Normal 14.0-18.0 [facility] Comment on above: Performed By: #### C BC ####[facility] Bqopqxscpv0965 [place] [id number]. Garima Heraclio IG # 0.05 10e3/ul Critically high 0.00-0.03 [facility] Comment on above: Performed By: #### C BC ####[facility] Yfzyrykrou5962 [place] [address]Dr. Garima Heraclio IG % 0.4 % Normal 0.0-0.5 [facility] Comment on above: Performed By: #### C BC ####[facility] Z[address]iqfykle[address] [place], [place] [address]Dr. Garima Pulliam LYMPH # 0.8 103/ul Critically low 1.2-3.8 [facility] Comment on above: Performed By: #### C BC ####[facility] Rqoqsktcro[address] [place], [place] [address]Dr. Chapisrenu Pulliam Lymphocytes/100 WBC (Bld) 6.5 % Critically low 20.5-60.0 [facility] Comment on above: Performed By: #### C BC ####[facility] [address]venwapa[address] [place], [place] [address]Dr. Chapisrenu Pulliam MANUAL DIFF REQ NO Normal [facility] Comment on above: Performed By: #### C BC ####[facility] Bxbabfwpbu[address] [place], [place] [address]DrAdalberto Garima Pulliam MCH (RBC) [Entitic mass] 30.5 pg Normal 25.9-34.0 [facility] Comment on above: Performed By: #### C BC ####[facility] Eiaupilfnk[address] [place], [place] [address]DrAdalberto Garima Heraclio MCHC (RBC) [Mass/Vol] 34.0 g/dL Normal 29.9-35.2 [facility] Comment on above: Performed By: #### C BC ####[facility] Q[address]dyvaqz[address] [place], [place] [address]DrAdalberto Garima Heraclio MCV (RBC) [Entitic vol] 89.8 fL Normal 80.0-94.0 [facility] Comment on above: Performed By: #### C BC ####[facility] Tjxhemccyi[address] [place], [place] [address]Dr. Garima Pulliam MONO # 0.2 103/ul Critically low 0.3-0.8 [facility] Comment on above: Performed By: #### C BC ####[facility] Qeqpzmxcvj4047 [place] [phone]. Garima Pulliam Monocytes/100 WBC (Bld) 2.0 % Normal 1.7-12.0 [facility] Comment on above: Performed By: #### C BC ####[facility] Plzbkuelay0638 [place] [address]Dr. Chapisrenu Heraclio NEUT # 10.5 103/ul Critically high 1.4-6.5 [facility] Comment on above: Performed By: #### C BC ####[facility] Drrufkolvb8110 [place] [address]Dr. Garima Pulliam Neutrophils/100 WBC (Bld) 90.4 % Critically high 43.0-75.0 [facility] Comment on above: Performed By: #### C BC ####[facility] Pbiwxkshoz4266 [place] [address]Dr. Garima Pulliam Platelet mean volume (Bld) [Entitic vol] 9.4 fL Critically low 9.5-13.5 [facility] Comment on above: Performed By: #### C BC ####[facility] Clouemedfx6186 [place] [address]Dr. Garima Pulliam PLT 198 103/ul Normal 150-450 [facility] Comment on above: Performed By: #### C BC ####[facility] Ysmgktqein6417 [place] [address]Dr. Garima Pulliam RBC 4.72 106/ul Normal 4.70-6.10 [facility] Comment on above: Performed By: #### C BC ####[facility] Dpkgmpjgbg6324 [place] [id number]. Garima Pulliam WBC 11.6 103/ul Critically high 4.0-11.0 [facility] Comment on above: Performed By: #### C BC ####[facility] Ilygysxbjc0038 [place] [address]DrAdalberto Pulliam PROF CHEM 8 (BAS METB)on Anion gap [Moles/Vol] 11.3 mmol/L Normal Th [facility] Comment on above: Performed By: #### B NANCY HERNANDEZ ####[facility] Owukjkdaew5614 [place] [address]Dr. Garima Pulliam Calcium [Mass/Vol] 8.9 mg/dL Normal 8.5-10.1 [facility] Comment on above: Performed By: #### B NANCY HERNANDEZ ####[facility] Izrpbqygar6315 [place] [address]Dr. Gariam Pulliam Chloride [Moles/Vol] 103 mmol/L Normal 98-107 [facility] Comment on above: Performed By: #### B NANCY HERNANDEZ ####[facility] Rjbb[address]xgzv[address] [place], [place] [address]Dr. Garima Pulliam CO2 [Moles/Vol] 28.2 mmol/L Normal 21.0-32.0 [facility] Comment on above: Performed By: #### NANCY Larkin MP ####[facility] Eoggtdezjg3867 [place] [address]Dr. Chapisrenu Pulliam Creatinine [Mass/Vol] 0.60 mg/dL Critically low 0.70-1.30 [facility] Comment on above: Performed By: #### NANCY Larkin MP ####[facility] Bprqwvwpah7879 [place] [address]Dr. Garima Pulliam EGFR-AF URUGUAYAN >60 Normal >=60 [facility] Comment on above: Performed By: #### NANCY Larkin MP ####[facility] Spfdqwiakk8968 [place] [address]Dr. Garima Pulliam EGFR-NON AF URUGUAYAN >60 Normal >=60 [facility] Comment on above: Performed By: #### NANCY Larkin MP ####[facility] Wvindtblbi[address] [place], [place] [address]Dr. Garima Pulliam Glucose [Mass/Vol] 166 mg/dL Critically high 74-106 [facility] Comment on above: Performed By: #### B MP, CMADM ####[facility] Gffwurylfj1865 [place] [address]Dr. Garima Pulliam Potassium [Moles/Vol] 3.5 mmol/L Normal 3.5-5.1 [facility] Comment on above: Performed By: #### B MP, CMADM ####[facility] Gbdeyyulgd7846 [place] [address]Dr. Garima Pulliam Sodium [Moles/Vol] 139 mmol/L Normal 136-145 [facility] Comment on above: Performed By: #### B DAVID, CMADM ####[facility] Njryysidrs1826 [place] [address]Dr. Garima Heraclio Urea nitrogen [Mass/Vol] 9.0 mg/dL Normal 7.0-18.0 [facility] Comment on above: Performed By: #### B DAVID, NANCY ####[facility] Lthosyatpq[address] [place], [place] [address]Dr. Garima Heraclio Urea nitrogen/Creatinine [Mass ratio] 15.0 mg/mg Normal [facility] Comment on above: Performed By: #### B DAVID, CMAANA ROSA ####[facility] Ljgnlpcazx[address] [place], [place] [address]Dr. Garima Pulliam XR CHEST 1 Von 12-10-2022 XR CHEST 1 V Normal [facility] BNPon 11-27-2022 Natriuretic peptide B (Bld) [Mass/Vol] 95.0 pg/mL Normal <=900.0 [facility] Comment on above: Performed By: #### C MP, HSTROPN, BNP ####[facility] Topnayizaz[address] [place], [place] [address]Dr. Garima Heraclio CBC AUTO DIFFon 11-27-2022 BASO # 0.0 103/ul Normal 0.0-0.1 [facility] Comment on above: Performed By: #### C BC ####[facility] Owcvtybrnd96[address] [place], [place] [address]Dr. Garima Heraclio Basophils/100 WBC (Bld) 0.2 % Normal 0.2-2.0 [facility] Comment on above: Performed By: #### C BC ####[facility] Dgayibpjws9033 [place] [id number]. Garima Pulliam EO # 0.2 103/ul Normal 0.0-0.7 [facility] Comment on above: Performed By: #### C BC ####[facility] Vycyzifjhf6783 [place] [phone]. Garima Pulliam Eosinophils/100 WBC (Bld) 2.0 % Normal 0.9-7.0 [facility] Comment on above: Performed By: #### C BC ####[facility] Odiikfseow[address] [place], [place] [address]Dr. Garima Pulliam Erythrocyte distribution width (RBC) [Ratio] 13.2 % Normal 11.0-15.0 [facility] Comment on above: Performed By: #### C BC ####[facility] Ebldvrsmkb[address] [place], [place] [address]Dr. Garima Pulliam Hematocrit (Bld) [Volume fraction] 42.4 % Normal 42.0-54.0 [facility] Comment on above: Performed By: #### C BC ####[facility] Ve[address]qkykwov[address] [place], [place] [address]Dr. Garima Pulliam Hemoglobin (Bld) [Mass/Vol] 14.4 g/dL Normal 14.0-18.0 [facility] Comment on above: Performed By: #### C BC ####[facility] Kcjwwrokel[address] [place], [place] [address]Dr. Garima Pulliam IG # 0.04 10e3/ul Critically high 0.00-0.03 [facility] Comment on above: Performed By: #### C BC ####[facility] Jypfydichy[address] [place], [place] [address]Dr. Garima Pulliam IG % 0.4 % Normal 0.0-0.5 [facility] Comment on above: Performed By: #### C BC ####[facility] Ysbfxvfceb[address] [place], [place] [address]Dr. Garima Pulliam LYMPH # 2.2 103/ul Normal 1.2-3.8 [facility] Comment on above: Performed By: #### C BC ####[facility] Hongazthsl7242 [place] [id number]. Garima Pulliam Lymphocytes/100 WBC (Bld) 21.5 % Normal 20.5-60.0 [facility] Comment on above: Performed By: #### C BC ####[facility] Hfwhxtuudc9156 [place] [phone]. Garima Heraclio MANUAL DIFF REQ NO Normal [facility] Comment on above: Performed By: #### C BC ####[facility] Gjqahbivqu6827 [place] [phone]. Garima Heraclio MCH (RBC) [Entitic mass] 30.4 pg Normal 25.9-34.0 [facility] Comment on above: Performed By: #### C BC ####[facility] Kyypjipolq7982 [place] [address]Dr. Garima Heraclio MCHC (RBC) [Mass/Vol] 34.0 g/dL Normal 29.9-35.2 [facility] Comment on above: Performed By: #### C BC ####[facility] Ywvxzhnimi5530 [place] [phone]. Garima Pulliam MCV (RBC) [Entitic vol] 89.6 fL Normal 80.0-94.0 [facility] Comment on above: Performed By: #### C BC ####[facility] Zxpvokttyy3265 [place] [phone]. Garima Pulliam MONO # 0.8 103/ul Normal 0.3-0.8 [facility] Comment on above: Performed By: #### C BC ####[facility] Tcdsngpdud7960 [place] [phone]. Chapisrenu Pulliam Monocytes/100 WBC (Bld) 7.7 % Normal 1.7-12.0 [facility] Comment on above: Performed By: #### C BC ####[facility] Qmxrkgvztj[address] [place], [place] [address]Dr. Garima Pulliam NEUT # 7.0 103/ul Critically high 1.4-6.5 [facility] Comment on above: Performed By: #### C BC ####[facility] Pahnkacfts9249 [place] [phone]. Garima Pulliam Neutrophils/100 WBC (Bld) 68.2 % Normal 43.0-75.0 [facility] Comment on above: Performed By: #### C BC ####[facility] Leymxxguzf5075 [place] [phone]. Chapisrenu Pulliam Platelet mean volume (Bld) [Entitic vol] 8.9 fL Critically low 9.5-13.5 [facility] Comment on above: Performed By: #### C BC ####[facility] Odwsbuwjfc3135 [place] [address]Dr. Garima Pulliam PLT 222 103/ul Normal 150-450 [facility] Comment on above: Performed By: #### C BC ####[facility] Ialmsgmyzy5192 [place] [address]Dr. Garima Pulliam RBC 4.73 106/ul Normal 4.70-6.10 [facility] Comment on above: Performed By: #### C BC ####[facility] Gxirbornys7940 [place] [address]Dr. Garima Pulliam WBC 10.3 103/ul Normal 4.0-11.0 [facility] Comment on above: Performed By: #### C BC ####[facility] Pomgkaptqr8994 [place] [address]Dr. Garima Pulliam PROF 14(COMP METB)on 023 Albumin [Mass/Vol] 3.7 g/dL Normal 3.4-5.0 [facility] Comment on above: Performed By: #### C MP, HSTROPN, BNP ####[facility] Qpozssfzvo7394 [place] [address]Dr. Chapisrenu Pulliam Albumin/Globulin [Mass ratio] 1.5 {ratio} Normal [facility] Comment on above: Performed By: #### C MP, HSTROPN, BNP ####[facility] Tykxyoquhm3120 [place] [address]Dr. Garima Pulliam ALP [Catalytic activity/Vol] 79 U/L Normal 46-116 [facility] Comment on above: Performed By: #### C MP, HSTROPN, BNP ####[facility] Pbyihkppdx7696 [place] [address]Dr. Garima Pulliam ALT [Catalytic activity/Vol] 32 U/L Normal 16-63 [facility] Comment on above: Performed By: #### C MP, HSTROPN, BNP ####[facility] Ckwhqixwwk1632 [place] [address]Dr. Garima Pulliam Anion gap [Moles/Vol] 9.5 mmol/L Normal [facility] Comment on above: Performed By: #### C MP, HSTROPN, BNP ####[facility] Kuafndvhra[address] [place], [place] [address]Dr. Garima Pulliam AST [Catalytic activity/Vol] 25 U/L Normal 15-37 [facility] Comment on above: Performed By: #### C MP, HSTROPN, BNP ####[facility] Nqxotizesk[address] [place], [place] [address]Dr. Chapislan Pulliam Bilirubin [Mass/Vol] 0.4 mg/dL Normal 0.2-1.0 [facility] Comment on above: Performed By: #### C MP, HSTROPN, BNP ####[facility] Yxypquebnq[address] [place], [place] [address]Dr. Garima Pulliam Calcium [Mass/Vol] 8.9 mg/dL Normal 8.5-10.1 [facility] Comment on above: Performed By: #### C MP, HSTROPN, BNP ####[facility] Meobeddkmv7[address] [place], [place] [address]Dr. Chapislan Pulliam Chloride [Moles/Vol] 103 mmol/L Normal 98-107 [facility] Comment on above: Performed By: #### C MP, HSTROPN, BNP ####[facility] Mpcpravllt[address] [place], [place] [address]Dr. Yilan Pulliam CO2 [Moles/Vol] 28.6 mmol/L Normal 21.0-32.0 [facility] Comment on above: Performed By: #### C MP, HSTROPN, BNP ####[facility] Zlnynnsooq3818 [place] [address]Dr. Garima Pulliam Creatinine [Mass/Vol] 0.72 mg/dL Normal 0.70-1.30 [facility] Comment on above: Performed By: #### C MP, HSTROPN, BNP ####[facility] Lyqaookoim3508 [place] [address]Dr. Garima Pulliam EGFR-AF URUGUAYAN >60 Normal >=60 [facility] Comment on above: Performed By: #### C MP, HSTROPN, BNP ####[facility] Esclgyicka2446 [place] [address]Dr. Garima Pulliam EGFR-NON AF URUGUAYAN >60 Normal >=60 [facility] Comment on above: Performed By: #### C MP, HSTROPN, BNP ####[facility] Lxwwrflyok6656 [place] [address]Dr. Garima Pulliam Globulin (S) [Mass/Vol] 2.5 g/dL Normal [facility] Comment on above: Performed By: #### C MP, HSTROPN, BNP ####[facility] Brlnfjblyd[address] [place], [place] [address]Dr. Garima Pulliam Glucose [Mass/Vol] 114 mg/dL Critically high 74-106 T [facility] Comment on above: Performed By: #### C MP, HSTROPN, BNP ####[facility] Uoaqcsroqk[address] [place], [place] [address]Dr. Garima Pulliam Potassium [Moles/Vol] 4.1 mmol/L Normal 3.5-5.1 [facility] Comment on above: Performed By: #### C MP, HSTROPN, BNP ####[facility] [address] [place] [address]Dr. Garima Pulliam Protein [Mass/Vol] 6.2 g/dL Critically low 6.4-8.2 Th [facility] Comment on above: Performed By: #### C MP, HSTROPN, BNP ####[facility] Z[address]uuz[address] [place], [place] [address]Dr. Yilan Pulliam Sodium [Moles/Vol] 137 mmol/L Normal 136-145 [facility] Comment on above: Performed By: #### C MP, HSTROPN, BNP ####[facility] [address] [place] [address]Dr. Garima Pulliam Urea nitrogen [Mass/Vol] 13.0 mg/dL Normal 7.0-18.0 [facility] Comment on above: Performed By: #### C MP, HSTROPN, BNP ####[facility] Svwlpmidtb[address] [place] [address]Dr. Garima Pulliam Urea nitrogen/Creatinine [Mass ratio] 18.1 mg/mg Normal [facility] Comment on above: Performed By: #### C MP, HSTROPN, BNP ####[facility] Ynewtibs[address] [place], [place] [address]Dr. Garima Pulliam TROPONIN, HIGH SENSITIVITYon 11-27-2022 HSTROP 11.8 pg/mL Normal 4.0-76.1 [facility] Comment on above: Result Comment: CUT- OFF POINTS HAVE BEEN ESTABLISHED BASED ON THE FOURTH UNIVERSAL DEFINITIONS OF MYOCARDIALINFARCTION. THE UPPER REFERENCE LIMIT (URL) OF TROPONIN, DEFINED THE 99TH PERCENTILE OFcTnI DISTRIBUTION IN A REFERENCE POPULATION, HAS BEEN CONFIRMED THE DECISION THRESHOLDFOR [place] DIAGNOSIS. Performed By: #### C MP, HSTROPN, BNP ####[facility] Qoxigfoaw[address] [place], [place] [address]Dr. Garima Pulliam XR CHEST 1 Von 11-27-2022 XR CHEST 1 V Normal [facility] BNPon 11-20-2022 Natriuretic peptide B (Bld) [Mass/Vol] 73.0 pg/mL Normal <=900.0 [facility] Comment on above: Performed By: #### B MP, HSTROPN, BNP ####[facility] Smnbxmmb[address] [place], [place] [address]Dr. Garima Pulliam CBC AUTO DIFFon 11-20-2022 BASO # 0.0 103/ul Normal 0.0-0.1 [facility] Comment on above: Performed By: #### C BC ####[facility] D[address]xfv[address] [place] [id number]. Garima Pulliam Basophils/100 WBC (Bld) 0.3 % Normal 0.2-2.0 [facility] Comment on above: Performed By: #### C BC ####[facility] Lnovyrinsu[address] [place] [id number]. Garima Pulliam EO # 0.2 103/ul Normal 0.0-0.7 [facility] Comment on above: Performed By: #### C BC ####[facility] Slxzeeiiyl4[address] [place] [address]Dr. Garima Pulliam Eosinophils/100 WBC (Bld) 2.1 % Normal 0.9-7.0 [facility] Comment on above: Performed By: #### C BC ####[facility] Vsggqz[address] [place], [place] [address]Dr. Garima Pulliam Erythrocyte distribution width (RBC) [Ratio] 13.2 % Normal 11.0-15.0 [facility] Comment on above: Performed By: #### C BC ####[facility] Ttztllor[address] [place], [place] [address]Dr. Garima Pulliam Hematocrit (Bld) [Volume fraction] 43.4 % Normal 42.0-54.0 [facility] Comment on above: Performed By: #### C BC ####[facility] Qkihqsf[address] [place], [place] [id number]. Garima Pulliam Hemoglobin (Bld) [Mass/Vol] 14.6 g/dL Normal 14.0-18.0 [facility] Comment on above: Performed By: #### C BC ####[facility] Sogutkgxwp[address] [place] [id number]. Graima Pulliam IG # 0.02 10e3/ul Normal 0.00-0.03 [facility] Comment on above: Performed By: #### C BC ####[facility] [address]zmdidjhf[address] [place] [address]Dr. Garima Pulliam IG % 0.2 % Normal 0.0-0.5 [facility] Comment on above: Performed By: #### C BC ####[facility] Dqgenewnsh37[address] [place] [id number]. Garima Heraclio LYMPH # 2.1 103/ul Normal 1.2-3.8 [facility] Comment on above: Performed By: #### C BC ####[facility] Qbfiocwiqg4674 [place] [id number]. Garima Heraclio Lymphocytes/100 WBC (Bld) 19.2 % Critically low 20.5-60.0 [facility] Comment on above: Performed By: #### C BC ####[facility] Wobx[address]qox[address] [place] [phone]. Chapisrenu Pulliam MANUAL DIFF REQ NO Normal [facility] Comment on above: Performed By: #### C BC ####[facility] Nnaxqidzlf8661 [place] [phone]. Garima Heraclio MCH (RBC) [Entitic mass] 30.4 pg Normal 25.9-34.0 [facility] Comment on above: Performed By: #### C BC ####[facility] Sjshzxewdi[address] [place] [address]Dr. Garima Pulliam MCHC (RBC) [Mass/Vol] 33.6 g/dL Normal 29.9-35.2 [facility] Comment on above: Performed By: #### C BC ####[facility] Wsccpjuqbh2291 [place] [phone]. Garima Heraclio MCV (RBC) [Entitic vol] 90.4 fL Normal 80.0-94.0 [facility] Comment on above: Performed By: #### C BC ####[facility] Gmkgjpizpt53[address] [place] [phone]. Garima Heraclio MONO # 0.6 103/ul Normal 0.3-0.8 [facility] Comment on above: Performed By: #### C BC ####[facility] Ckqfxtilzw5[address] [place] [address]Dr. Garima Heraclio Monocytes/100 WBC (Bld) 5.8 % Normal 1.7-12.0 [facility] Comment on above: Performed By: #### C BC ####[facility] [address] [place], [place] [address]Cf. Garima Pulliam NEUT # 7.8 103/ul Critically high 1.4-6.5 [facility] Comment on above: Performed By: #### C BC ####[facility] Ijkbrxyiis44[address] [place] [phone]. Garima Pulliam Neutrophils/100 WBC (Bld) 72.4 % Normal 43.0-75.0 [facility] Comment on above: Performed By: #### C BC ####[facility] Zgwhudvijx4593 [place] [phone]. Garima Pulliam Platelet mean volume (Bld) [Entitic vol] 8.7 fL Critically low 9.5-13.5 [facility] Comment on above: Performed By: #### C BC ####[facility] Clpmkdmpve9974 [place] [phone]. Garima Pulliam PLT 184 103/ul Normal 150-450 [facility] Comment on above: Performed By: #### C BC ####[facility] [address]rt[address] [place], [place] [address]Dv. Garima Pulliam RBC 4.80 106/ul Normal 4.70-6.10 [facility] Comment on above: Performed By: #### C BC ####[facility] Gkobxeayvd9541 [place] [phone]. Garima Pulliam WBC 10.8 103/ul Normal 4.0-11.0 [facility] Comment on above: Performed By: #### C BC ####[facility] Eyzhlkbhaq9[address] [place] [phone]. Garima Pulliam [facility]24 SARS-CoV-2 (COVID-19) RNA MARIE+probe Ql (Unsp spec) Not detected Normal NOT DETECTED [facility] Comment on above: Result Comment: When [...] for this test is supported by the [employer] of Health and Human Service's declaration [...] be used). Performed By: #### C VDTBH ####[facility] Ykvisiuczg[address] [place], [place] [address]Dr. Garima Pulliam INFLUENZA A AND B AGon 11-20 [facility] SEE BELOW Normal [facility] Comment on above: Result Comment: Nega tive for Flu A protein angiten. Infection due to Flu A cannot be ruled out. Flu A angiten in the sample may be below the detection limit of the test. Performed By: #### I NFLUAB ####[facility] Nabbdmntbt[address] [place], [place] [address]Dr. Garima Pulliam INFLUBNEGH SEE BELOW Normal [facility] Comment on above: Result Comment: Nega tive for Flu B protein antigen. Infection due to Flu B cannot be ruled out. Flu B antigen in the sample may be below the detection limit of the test. Performed By: #### I NFLUAB ####[facility] Igkqfkypci[address] [place], [place] [address]Dr. Garima Pulliam INFLUENZA A AG Negative Normal NEGATIVE SEE COMMENT [facility] Comment on above: Performed By: #### I NFLUAB ####[facility] Xcppgionot9[address] [place], [place] [address]Dr. Garima [facility] INFLUENZA B AG Negative Normal NEGATIVE SEE COMMENT [facility] Comment on above: Performed By: #### I NFLUAB ####[facility] Bkgisiocjs14[address] [place], [place] [address]Dr. Garima Pulliam PROF CHEM 8 (BAS METB)on Anion gap [Moles/Vol] 8.2 mmol/L Normal [facility] Comment on above: Performed By: #### B MP, HSTROPN, BNP ####[facility] [address]dps[address] [place] [address]Dr. Graima Pulliam Calcium [Mass/Vol] 8.7 mg/dL Normal 8.5-10.1 [facility] Comment on above: Performed By: #### B MP, HSTROPN, BNP ####[facility] Ywnqgekxmc8[address] [place] [address]Dr. Garima Pulliam Chloride [Moles/Vol] 103 mmol/L Normal 98-107 [facility] Comment on above: Performed By: #### B MP, HSTROPN, BNP ####[facility] Amhfszojes[address] [place], [place] [address]Dr. Garima Pulliam CO2 [Moles/Vol] 29.4 mmol/L Normal 21.0-32.0 [facility] Comment on above: Performed By: #### B MP, HSTROPN, BNP ####[facility] Xiut[address]leej[address] [place], [place] [address]Dr. Garima Pulliam Creatinine [Mass/Vol] 0.69 mg/dL Critically low 0.70-1.30 [facility] Comment on above: Performed By: #### B MP, HSTROPN, BNP ####[facility] [address]axmpvdz[address] [place] [address]Dr. Garima Pulliam EGFR-AF URUGUAYAN >60 Normal >=60 [facility] Comment on above: Performed By: #### B MP, HSTROPN, BNP ####[facility] Jnoffqmk[address] [place], [place] [address]Dr. Garima Pulliam EGFR-NON AF URUGUAYAN >60 Normal >=60 [facility] Comment on above: Performed By: #### B MP, HSTROPN, BNP ####[facility] Ekvigrkqgb8994 [place] [address]Dr. Garima Pulliam Glucose [Mass/Vol] 209 mg/dL Critically high 74-106 T [facility] Comment on above: Performed By: #### B MP, HSTROPN, BNP ####[facility] Ldnvebaknn[address] [place] [address]Dr. Garima Pulliam Potassium [Moles/Vol] 3.6 mmol/L Normal 3.5-5.1 [facility] Comment on above: Performed By: #### B MP, HSTROPN, BNP ####[facility] Ngnehmyqnd9158 [place] [address]Dr. Garima Pulliam Sodium [Moles/Vol] 137 mmol/L Normal 136-145 [facility] Comment on above: Performed By: #### B MP, HSTROPN, BNP ####[facility] Nzhkrlfhzy6758 [place] [address]Dr. Garima Pulliam Urea nitrogen [Mass/Vol] 11.0 mg/dL Normal 7.0-18.0 [facility] Comment on above: Performed By: #### B MP, HSTROPN, BNP ####[facility] Zrliizddxe5[address] [place] [address]Dr. Garima Pulliam Urea nitrogen/Creatinine [Mass ratio] 15.9 mg/mg Normal [facility] Comment on above: Performed By: #### B MP, HSTROPN, BNP ####[facility] Jiqkbcwnjz5[address] [place] [address]Dr. Garima Pulliam TROPONIN, HIGH SENSITIVITYon 11-20-2022 HSTROP 8.7 pg/mL Normal 4.0-76.1 [facility] Comment on above: Result Comment: CUT- OFF POINTS HAVE BEEN ESTABLISHED BASED ON THE FOURTH UNIVERSAL DEFINITIONS OF MYOCARDIALINFARCTION. THE UPPER REFERENCE LIMIT (URL) OF TROPONIN, DEFINED THE 99TH PERCENTILE OFcTnI DISTRIBUTION IN A REFERENCE POPULATION, HAS BEEN CONFIRMED THE DECISION THRESHOLDFOR [place] DIAGNOSIS. Performed By: #### B MP, HSTROPN, BNP ####[facility] Saygwgwnxm98[address] [place] [address]Dr. Garima Pulliam XR CHEST 1 Von 11-20-2022 XR CHEST 1 V Normal [facility] XR CHEST 1 Von 10-02-2022 XR CHEST 1 V Normal [facility] BNPon 09-29-2022 Natriuretic peptide B (Bld) [Mass/Vol] 107.0 pg/mL Normal <=900.0 [facility] Comment on above: Performed By: #### C MP, BNP, CMADM ####[facility] Jegalywoqo[address] [place] [address]Dr. Garima Pulliam CARDIAC NASH ADMITon 022 CK [Catalytic activity/Vol] 190 U/L Normal 39-308 [facility] Comment on above: Performed By: #### C MP, BNP, CMADM ####[facility] [address] [place] [address]Dr. Garima Heraclio CK.MB [Mass/Vol] 11.11 ng/mL Critically high <=3.60 Th [facility] Comment on above: Performed By: #### C MP, BNP, CMADM ####[facility] Bnomjvlzoj035[address] [place] [address]Dr. Garima Pulliam HSTROP 11.8 pg/mL Normal 4.0-76.1 [facility] Comment on above: Result Comment: CUT- OFF POINTS HAVE BEEN ESTABLISHED BASED ON THE FOURTH UNIVERSAL DEFINITIONS OF MYOCARDIALINFARCTION. THE UPPER REFERENCE LIMIT (URL) OF TROPONIN, DEFINED THE 99TH PERCENTILE OFcTnI DISTRIBUTION IN A REFERENCE POPULATION, HAS BEEN CONFIRMED THE DECISION THRESHOLDFOR [place] DIAGNOSIS. Performed By: #### C MP, BNP, CMADM ####[facility] [address]yhaajmf[address] [place] [address]Dr. Garima Pulliam DORIS 133 ng/mL Critically high 16-96 [facility] Comment on above: Performed By: #### C MP, BNP, CMADM ####[facility] Ryjsjheaus[address] [place] [address]Dr. Garima Heraclio CBC AUTO DIFFon 09-29-2022 BASO # 0.0 103/ul Normal 0.0-0.1 [facility] Comment on above: Performed By: #### C BC ####[facility] Jprzwniifu2118 [place] [address]Dr. Garima Heraclio Basophils/100 WBC (Bld) 0.2 % Normal 0.2-2.0 [facility] Comment on above: Performed By: #### C BC ####[facility] Wzcdekicbk3357 [place] [phone]. Garima Pulliam EO # 0.1 103/ul Normal 0.0-0.7 [facility] Comment on above: Performed By: #### C BC ####[facility] Htrsxxykns9374 [place] [phone]. Garima Pulliam Eosinophils/100 WBC (Bld) 1.4 % Normal 0.9-7.0 [facility] Comment on above: Performed By: #### C BC ####[facility] Nhukltsnqm[address] [place], [place] [address]Dr. Garima Pulliam Erythrocyte distribution width (RBC) [Ratio] 13.7 % Normal 11.0-15.0 [facility] Comment on above: Performed By: #### C BC ####[facility] Oxgwkeaumc[address] [place], [place] [address]Dr. Garima Pulliam Hematocrit (Bld) [Volume fraction] 45.4 % Normal 42.0-54.0 [facility] Comment on above: Performed By: #### C BC ####[facility] Nkldqwynyk[address] [place], [place] [address]Dr. Garima Pulliam Hemoglobin (Bld) [Mass/Vol] 14.8 g/dL Normal 14.0-18.0 [facility] Comment on above: Performed By: #### C BC ####[facility] Q[address]iazqdtjn03[address] [place], [place] [address]Dr. Garima Pulliam IG # 0.04 10e3/ul Critically high 0.00-0.03 [facility] Comment on above: Performed By: #### C BC ####[facility] Veywebqqwg[address] [place], [place] [address]Dr. Garima Pulliam IG % 0.5 % Normal 0.0-0.5 [facility] Comment on above: Performed By: #### C BC ####[facility] Fyflmmnmks[address] [place], [place] [address]Dr. Garima Pulliam LYMPH # 1.1 103/ul Critically low 1.2-3.8 [facility] Comment on above: Performed By: #### C BC ####[facility] Tddjrfsrdc6261 [place] [phone]. Garima Pulliam Lymphocytes/100 WBC (Bld) 12.7 % Critically low 20.5-60.0 [facility] Comment on above: Performed By: #### C BC ####[facility] Fpzojeascf5427 [place] [phone]. Chapisrenu Pulliam MANUAL DIFF REQ NO Normal [facility] Comment on above: Performed By: #### C BC ####[facility] Uuf[address]xaf[address] [place], [place] [address]Dr. Garima Heraclio MCH (RBC) [Entitic mass] 30.0 pg Normal 25.9-34.0 [facility] Comment on above: Performed By: #### C BC ####[facility] Egijlxvzkr694[address] [place], [place] [address]Dr. Garima Heraclio MCHC (RBC) [Mass/Vol] 32.6 g/dL Normal 29.9-35.2 [facility] Comment on above: Performed By: #### C BC ####[facility] P[address]qnq[address]xry[address] [place], [place] [address]Dr. Garima Heraclio MCV (RBC) [Entitic vol] 91.9 fL Normal 80.0-94.0 [facility] Comment on above: Performed By: #### C BC ####[facility] [address]nyezzihdc[address] [place], [place] [address]Dr. Garima Pulliam MONO # 0.4 103/ul Normal 0.3-0.8 [facility] Comment on above: Performed By: #### C BC ####[facility] [address] [place], [place] [address]Dr. Chapisrenu Pulliam Monocytes/100 WBC (Bld) 4.8 % Normal 1.7-12.0 [facility] Comment on above: Performed By: #### C BC ####[facility] Nrhtj[address]dcl[address] [place], [place] [address]Dr. Garima Pulliam NEUT # 7.1 103/ul Critically high 1.4-6.5 [facility] Comment on above: Performed By: #### C BC ####[facility] Qhvvfzvdgh0793 [place], [place] [address]Bc. Garima Pulliam Neutrophils/100 WBC (Bld) 80.4 % Critically high 43.0-75.0 [facility] Comment on above: Performed By: #### C BC ####[facility] Iqckgnctdj7793 [place] [phone]. Garima Pulliam Platelet mean volume (Bld) [Entitic vol] 9.1 fL Critically low 9.5-13.5 [facility] Comment on above: Performed By: #### C BC ####[facility] Tntibewewa5110 [place] [phone]. Garima Pulliam PLT 200 103/ul Normal 150-450 [facility] Comment on above: Performed By: #### C BC ####[facility] Kgjgzraplx6979 [place] [phone]. Garima Pulliam RBC 4.94 106/ul Normal 4.70-6.10 [facility] Comment on above: Performed By: #### C BC ####[facility] Duslhsnkdz5292 [place] [phone]. Garima Pulliam WBC 8.9 103/ul Normal 4.0-11.0 [facility] Comment on above: Performed By: #### C BC ####[facility] Buczlnlfjr12[address] [place] [phone]. Garima Pulliam Covid-19 PCR (CVDTB)on SARS-CoV-2 (COVID-19) RNA MARIE+probe Ql (Unsp spec) Not detected Normal NOT DETECTED [facility] Comment on above: Result Comment: When [...] for this test is supported by the [place] of Health and Human Service's declaration that [...] be used). Performed By: #### C VDTBH ####[facility] Jatzakjpbl[address] [place] [address]Dr. Garima Pulliam LACTATE/LACTIC ACIDon 2021 Lactate [Moles/Vol] 1.7 mmol/L Normal 0.4-1.9 [facility] Comment on above: Performed By: #### L ACT ####[facility] [address]afsndw[address] [place], [place] [address]Dr. Garima Pulliam PROF 14(COMP METB)on 022 Albumin [Mass/Vol] 3.8 g/dL Normal 3.4-5.0 [facility] Comment on above: Performed By: #### C MP, BNP, CMADM ####[facility] Ldxhbelztt[address] [place], [place] [address]Dr. Garima Pulliam Albumin/Globulin [Mass ratio] 1.5 {ratio} Normal [facility] Comment on above: Performed By: #### C MP, BNP, CMADM ####[facility] Slxiacpxnl1524 [place] [address]Dr. Garima Pulliam ALP [Catalytic activity/Vol] 62 U/L Normal 46-116 [facility] Comment on above: Performed By: #### C MP, BNP, CMADM ####[facility] Qpialjvmdu8607 [place] [address]Dr. Garima Pulliam ALT [Catalytic activity/Vol] 37 U/L Normal 16-63 [facility] Comment on above: Performed By: #### C MP, BNP, CMADM ####[facility] Uqjghkvcim2891 [place] [address]Dr. Garima Pulliam Anion gap [Moles/Vol] 8.0 mmol/L Normal [facility] Comment on above: Performed By: #### C MP, BNP, CMADM ####[facility] Jtlvoiaapo8066 [place] [address]Dr. Garima Pulliam AST [Catalytic activity/Vol] 20 U/L Normal 15-37 [facility] Comment on above: Performed By: #### C MP, BNP, CMADM ####[facility] Znkiiksjdc1717 [place] [address]Dr. Garima Pulliam Bilirubin [Mass/Vol] 0.6 mg/dL Normal 0.2-1.0 [facility] Comment on above: Performed By: #### C MP, BNP, CMADM ####[facility] Rexiujrjzg9907 [place] [address]Dr. Garima Pulliam Calcium [Mass/Vol] 9.1 mg/dL Normal 8.5-10.1 [facility] Comment on above: Performed By: #### C MP, BNP, CMADM ####[facility] Thnxydadiu[address] [place], [place] [address]Dr. Garima Pulliam Chloride [Moles/Vol] 103 mmol/L Normal 98-107 [facility] Comment on above: Performed By: #### C MP, BNP, CMADM ####[facility] Duodq[address]kxx[address] [place], [place] [address]Dr. Garima Pulliam CO2 [Moles/Vol] 31.8 mmol/L Normal 21.0-32.0 [facility] Comment on above: Performed By: #### C MP, BNP, CMADM ####[facility] Yzbuwwwwzv[address] [place], [place] [address]Dr. Garima Pulliam Creatinine [Mass/Vol] 0.63 mg/dL Critically low 0.70-1.30 [facility] Comment on above: Performed By: #### C MP, BNP, CMADM ####[facility] [address]phverohd[address] [place], [place] [address]Dr. Garima Pulliam EGFR-AF URUGUAYAN >60 Normal >=60 [facility] Comment on above: Performed By: #### C MP, BNP, CMADM ####[facility] Tobwlwxcmq[address] [place], [place] [address]Dr. Garima Pulliam EGFR-NON AF URUGUAYAN >60 Normal >=60 [facility] Comment on above: Performed By: #### C MP, BNP, CMADM ####[facility] Iywyxbsfeo1688 [place] [address]Dr. Garima Pulliam Globulin (S) [Mass/Vol] 2.6 g/dL Normal [facility] Comment on above: Performed By: #### C MP, BNP, CMADM ####[facility] Ihxypwasri45[address] [place] [address]Dr. Garima Pulliam Glucose [Mass/Vol] 103 mg/dL Normal 74-106 [facility] Comment on above: Performed By: #### C MP, BNP, CMADM ####[facility] Jlmwdgkwwz7367 [place] [address]Dr. Garima Pulliam Potassium [Moles/Vol] 3.8 mmol/L Normal 3.5-5.1 [facility] Comment on above: Performed By: #### C MP, BNP, CMADM ####[facility] Dcbftoblnq6790 [place] [address]Dr. Garima Pulliam Protein [Mass/Vol] 6.4 g/dL Normal 6.4-8.2 [facility] Comment on above: Performed By: #### C MP, BNP, CMADM ####[facility] Yefrcelaul6521 [place] [address]Dr. Garima Pulliam Sodium [Moles/Vol] 139 mmol/L Normal 136-145 [facility] Comment on above: Performed By: #### C MP, BNP, CMADM ####[facility] Udmdazjktr0791 [place] [address]Dr. Garima Pulliam Urea nitrogen [Mass/Vol] 7.0 mg/dL Normal 7.0-18.0 [facility] Comment on above: Performed By: #### C MP, BNP, CMADM ####[facility] Vnedxdgeay2475 [place] [address]Dr. Garima Pulliam Urea nitrogen/Creatinine [Mass ratio] 11.1 mg/mg Normal [facility] Comment on above: Performed By: #### C MP, BNP, CMADM ####[facility] Xkejuczopr1504 [place] [address]Dr. Garima Pulliam PROTIMEon 09-29-2022 INR Coag (PPP) [Relative time] 1.14 {INR} Normal [facility] Comment on above: Performed By: #### P T, PTT ####[facility] [address]wej[address] [place], [place] [address]Dr. Garima Pulliam INR GUIDELINES SEE BELOW Normal [facility] Comment on above: Result Comment: WESLEY RED INR: 2.0 - 3.0 CONDITIONS NOT LISTED BELOW 2.5 - 3.5 FOR PROSTHETIC HEART VALVE REPLACEMENT 2.5 - 3.5 RECURRENT THROMBOSIS Performed By: #### P T, PTT ####[facility] Mwekbabqid[address] [place], [place] [address]Dr. Garima Pulliam PT Coag (PPP) [Time] 12.2 s Critically high 9.0-11.6 [facility] Comment on above: Performed By: #### P T, PTT ####[facility] Egkmnzmjyb9[address] [place], [place] [address]Dr. Garima Pulliam PTTon 09-29-2022 aPTT Coag (Bld) [Time] 29.3 s Normal 22.3-36.2 [facility] Comment on above: Performed By: #### P T, PTT ####[facility] Qbjajhgggw[address] [place], [place] [address]Dr. Garima Pulliam XR CHEST 1 Von 09-29-2022 XR CHEST 1 V Normal [facility] CBC AUTO DIFFon 09-26-2022 BASO # 0.0 103/ul Normal 0.0-0.1 [facility] Comment on above: Performed By: #### C BC ####[facility] Gpskoeptnz9[address] [place], [place] [address]Dr. Garima Pulliam Basophils/100 WBC (Bld) 0.2 % Normal 0.2-2.0 [facility] Comment on above: Performed By: #### C BC ####[facility] Pxuxcawezh[address] [place], [place] [address]Dr. Garima Pulliam EO # 0.1 103/ul Normal 0.0-0.7 [facility] Comment on above: Performed By: #### C BC ####[facility] Ddahmspuki[address] [place], [place] [address]Dr. Garima Pulliam Eosinophils/100 WBC (Bld) 1.0 % Normal 0.9-7.0 [facility] Comment on above: Performed By: #### C BC ####[facility] Xomzgloorn[address] [place], [place] [address]Dr. Garima Pulliam Erythrocyte distribution width (RBC) [Ratio] 13.4 % Normal 11.0-15.0 [facility] Comment on above: Performed By: #### C BC ####[facility] Gkemmakbtp40[address] [place], [place] [address]Dr. Garima Pulliam Hematocrit (Bld) [Volume fraction] 46.3 % Normal 42.0-54.0 [facility] Comment on above: Performed By: #### C BC ####[facility] Ndcsrdoqij32[address] [place], [place] [address]Dr. Garima Pulliam Hemoglobin (Bld) [Mass/Vol] 15.3 g/dL Normal 14.0-18.0 [facility] Comment on above: Performed By: #### C BC ####[facility] Mpzwvknlvg247[address] [place], [place] [address]Dr. Garima Pulliam IG # 0.05 10e3/ul Critically high 0.00-0.03 [facility] Comment on above: Performed By: #### C BC ####[facility] Axpfkjjepb795[address] [place], [place] [address]Dr. Garima Pulliam IG % 0.4 % Normal 0.0-0.5 [facility] Comment on above: Performed By: #### C BC ####[facility] Kvhdawvwrm[address] [place], [place] [address]Dr. Garima Pulliam LYMPH # 1.7 103/ul Normal 1.2-3.8 [facility] Comment on above: Performed By: #### C BC ####[facility] Kxpywdxhuc[address] [place], [place] [address]Dr. Garima Pulliam Lymphocytes/100 WBC (Bld) 12.7 % Critically low 20.5-60.0 [facility] Comment on above: Performed By: #### C BC ####[facility] [address] [place] [address]DrAdalberto Pulliam MANUAL DIFF REQ NO Normal [facility] Comment on above: Performed By: #### C BC ####[facility] Mimqxwjwas[address] [place] [address]Dr. Garima Pulliam MCH (RBC) [Entitic mass] 30.1 pg Normal 25.9-34.0 [facility] Comment on above: Performed By: #### C BC ####[facility] Fpkriefsij[address] [place], [place] [address]Dr. Garima Pulliam MCHC (RBC) [Mass/Vol] 33.0 g/dL Normal 29.9-35.2 [facility] Comment on above: Performed By: #### C BC ####[facility] Wyiwixobym[address] [place], [place] [address]DrAdalberto Pulliam MCV (RBC) [Entitic vol] 91.1 fL Normal 80.0-94.0 [facility] Comment on above: Performed By: #### C BC ####[facility] Dpumosvbdf9425[address] [place], [place] [address]DrAdalberto Pulliam MONO # 0.9 103/ul Critically high 0.3-0.8 [facility] Comment on above: Performed By: #### C BC ####[facility] Wtrfogckrg7[address] [place], [place] [address]DrAdalberto Pulliam Monocytes/100 WBC (Bld) 7.0 % Normal 1.7-12.0 [facility] Comment on above: Performed By: #### C BC ####[facility] Tvavgesiov960[address] [place], [place] [address]DrAdalberto Pulliam NEUT # 10.4 103/ul Critically high 1.4-6.5 [facility] Comment on above: Performed By: #### C BC ####[facility] Grvubniqgl8924[address] [place], [place] [address]DrAdalberto Pulliam Neutrophils/100 WBC (Bld) 78.7 % Critically high 43.0-75.0 [facility] Comment on above: Performed By: #### C BC ####[facility] Xgeuqbncyi6372 [place] [address]Dr. Garima Pulliam Platelet mean volume (Bld) [Entitic vol] 8.9 fL Critically low 9.5-13.5 [facility] Comment on above: Performed By: #### C BC ####[facility] [address] [place] [address]Dr. Garima Pulliam PLT 195 103/ul Normal 150-450 [facility] Comment on above: Performed By: #### C BC ####[facility] Dynlphhmyz[address] [place], [place] [address]Dr. Garima Pulliam RBC 5.08 106/ul Normal 4.70-6.10 [facility] Comment on above: Performed By: #### C BC ####[facility] Lpxdqtiytw028[address] [place], [place] [address]Dr. Garima Pulliam WBC 13.2 103/ul Critically high 4.0-11.0 [facility] Comment on above: Performed By: #### C BC ####[facility] Aqwzspdafw05[address] [place], [place] [address]Dr. Garima Pulliam PROF 14(COMP METB)on 022 Albumin [Mass/Vol] 3.5 g/dL Normal 3.4-5.0 [facility] Comment on above: Performed By: #### C DAVID HSTROPN ####[facility] [address]ownokzumm[address] [place] [address]Dr. Garima Pulliam Albumin/Globulin [Mass ratio] 1.2 {ratio} Normal [facility] Comment on above: Performed By: #### C RAFAT HERNANDEZTROPN ####[facility] Zezt[address]su[address] [place] [address]Dr. Garima Pulliam ALP [Catalytic activity/Vol] 71 U/L Normal 46-116 [facility] Comment on above: Performed By: #### C DAVID HSTROPN ####[facility] Audywgcviu6[address] [place] [address]Dr. Garima Pulliam ALT [Catalytic activity/Vol] 37 U/L Normal 16-63 [facility] Comment on above: Performed By: #### C DAVID, HSTROPN ####[facility] Iaibeqwhuj[address] [place] [address]Dr. Garima Pulliam Anion gap [Moles/Vol] 4.8 mmol/L Normal [facility] Comment on above: Performed By: #### C DAVID, HSTROPN ####[facility] Uddvrvheks[address] [place], [place] [address]Dr. Garima Pulliam AST [Catalytic activity/Vol] 21 U/L Normal 15-37 [facility] Comment on above: Performed By: #### C DAVID, HSTROPN ####[facility] Rkxqnusihk[address] [place], [place] [address]Dr. Garima Pulliam Bilirubin [Mass/Vol] 0.3 mg/dL Normal 0.2-1.0 [facility] Comment on above: Performed By: #### C DAVID, HSTROPN ####[facility] Tcpifmmnmu7803 [place] [address]Dr. Garima Pulliam Calcium [Mass/Vol] 8.9 mg/dL Normal 8.5-10.1 [facility] Comment on above: Performed By: #### C DAVID, HSTROPN ####[facility] Xftsqewmvr[address] [place] [address]Dr. Garima Pulliam Chloride [Moles/Vol] 106 mmol/L Normal 98-107 [facility] Comment on above: Performed By: #### C DAVID, HSTROPN ####[facility] Ebaigxatfg57[address] [place] [address]Dr. Garima Pulliam CO2 [Moles/Vol] 29.8 mmol/L Normal 21.0-32.0 [facility] Comment on above: Performed By: #### C DAVID, HSTROPN ####[facility] Wt[address]ukapbi[address] [place] [address]Dr. Garima Pulilam Creatinine [Mass/Vol] 0.68 mg/dL Critically low 0.70-1.30 [facility] Comment on above: Performed By: #### C MP, HSTROPN ####[facility] Hqxjjjradd[address] [place] [address]Dr. Garima Pulliam EGFR-AF URUGUAYAN >60 Normal >=60 [facility] Comment on above: Performed By: #### C MP, HSTROPN ####[facility] Bfcbhjzrlk7[address] [place] [address]Dr. Chapislan Pulliam EGFR-NON AF URUGUAYAN >60 Normal >=60 [facility] Comment on above: Performed By: #### C MP, HSTROPN ####[facility] Qbetbacvbg4510 [place] [address]Dr. Garima Pulliam Globulin (S) [Mass/Vol] 2.8 g/dL Normal [facility] Comment on above: Performed By: #### C MP, HSTROPN ####[facility] Pmmlwhtfvb[address] [place] [address]Dr. Garima Pullima Glucose [Mass/Vol] 133 mg/dL Critically high 74-106 [facility] Comment on above: Performed By: #### C MP, HSTROPN ####[facility] Chislirqbk3038 [place] [address]Dr. Chapisrenu Pulliam Potassium [Moles/Vol] 3.6 mmol/L Normal 3.5-5.1 [facility] Comment on above: Performed By: #### C MP, HSTROPN ####[facility] Oejkqiatnr45[address] [place] [address]Dr. Chapisrenu Pulliam Protein [Mass/Vol] 6.3 g/dL Critically low 6.4-8.2 [facility] Comment on above: Performed By: #### C MP, HSTROPN ####[facility] Egrrozneml[address] [place], [place] [address]Dr. Chapisrenu Pulliam Sodium [Moles/Vol] 137 mmol/L Normal 136-145 [facility] Comment on above: Performed By: #### C MP, HSTROPN ####[facility] Lqzrggjzrn[address] [place], [place] [address]Dr. Garima Pulliam Urea nitrogen [Mass/Vol] 15.0 mg/dL Normal 7.0-18.0 [facility] Comment on above: Performed By: #### C DAVID HSTROPN ####[facility] Pqspzcrapo0191 [place] [address]Dr. Chapisrenu Pulliam Urea nitrogen/Creatinine [Mass ratio] 22.1 mg/mg Normal [facility] Comment on above: Performed By: #### C DAVID HSTROPN ####[facility] W[address]mdemitog[address]203 [place] [address]Dr. Garima Heraclio TROPONIN, HIGH SENSITIVITYon 09-26-2022 HSTROP 12.8 pg/mL Normal 4.0-76.1 [facility] Comment on above: Result Comment: CUT- OFF POINTS HAVE BEEN ESTABLISHED BASED ON THE FOURTH UNIVERSAL DEFINITIONS OF MYOCARDIALINFARCTION. THE UPPER REFERENCE LIMIT (URL) OF TROPONIN, DEFINED THE 99TH PERCENTILE OFcTnI DISTRIBUTION IN A REFERENCE POPULATION, HAS BEEN CONFIRMED THE DECISION THRESHOLDFOR [place] DIAGNOSIS. Performed By: #### C DAVID HSTROPN ####[facility] Ikpyzehhgz[address] [place] [address]Dr. Chapisrenu Pulliam XR CHEST 1 Von 09-26-2022 XR CHEST 1 V Normal [facility] XR CHEST 1 Von 09-16-2022 XR CHEST 1 V Normal [facility] CBC AUTO DIFFon 09-15-2022 BASO # 0.0 103/ul Normal 0.0-0.1 [facility] Comment on above: Performed By: #### C BC ####[facility] Xhzoyibwne3586 [place] [address]Dr. Garima Heraclio Basophils/100 WBC (Bld) 0.1 % Critically low 0.2-2.0 [facility] Comment on above: Performed By: #### C BC ####[facility] Tyddykbvfs2505 [place] [address]Dr. Garima Pulliam EO # 0.0 103/ul Normal 0.0-0.7 [facility] Comment on above: Performed By: #### C BC ####[facility] Ynoyzeztxe5627 [place] [address]Dr. Garima Pulliam Eosinophils/100 WBC (Bld) 0.1 % Critically low 0.9-7.0 [facility] Comment on above: Performed By: #### C BC ####[facility] Nyjzeydcze6021 [place] [address]Dr. Garima Pulliam Erythrocyte distribution width (RBC) [Ratio] 14.1 % Normal 11.0-15.0 [facility] Comment on above: Performed By: #### C BC ####[facility] Kyhasbqwpv[address] [place], [place] [address]Dr. Garima Pulliam Hematocrit (Bld) [Volume fraction] 46.1 % Normal 42.0-54.0 [facility] Comment on above: Performed By: #### C BC ####[facility] Vuomojmgog605[address] [place], [place] [address]Dr. Garima Pulliam Hemoglobin (Bld) [Mass/Vol] 15.0 g/dL Normal 14.0-18.0 [facility] Comment on above: Performed By: #### C BC ####[facility] W[address]twfsjrl[address] [place], [place] [address]Dr. Garima Pulliam IG # 0.03 10e3/ul Normal 0.00-0.03 [facility] Comment on above: Performed By: #### C BC ####[facility] Smwjenabtf7[address] [place], [place] [address]Dr. Garima Pulliam IG % 0.3 % Normal 0.0-0.5 [facility] Comment on above: Performed By: #### C BC ####[facility] Onhklbpuwd05[address] [place], [place] [address]Dr. Gairma Pulliam LYMPH # 0.6 103/ul Critically low 1.2-3.8 [facility] Comment on above: Performed By: #### C BC ####[facility] Idqohzlqms778[address] [place], [place] [address]Dr. Garima Pulliam Lymphocytes/100 WBC (Bld) 5.8 % Critically low 20.5-60.0 [facility] Comment on above: Performed By: #### C BC ####[facility] [address]qvcljzhjd33[address] [place] [id number]. Garima Pulliam MANUAL DIFF REQ NO Normal [facility] Comment on above: Performed By: #### C BC ####[facility] Pxspnxbplc5421 [place] [id number]. Garima Pulliam MCH (RBC) [Entitic mass] 30.2 pg Normal 25.9-34.0 [facility] Comment on above: Performed By: #### C BC ####[facility] Ibguxxwxmd1611 [place] [address]Dr. Garima Pulliam MCHC (RBC) [Mass/Vol] 32.5 g/dL Normal 29.9-35.2 [facility] Comment on above: Performed By: #### C BC ####[facility] Yujxsdkmvf4867 [place] [address]Dr. Garima Pulliam MCV (RBC) [Entitic vol] 92.8 fL Normal 80.0-94.0 [facility] Comment on above: Performed By: #### C BC ####[facility] Yjxnvkenag3940 [place] [address]Dr. Garima Heraclio MONO # 0.3 103/ul Normal 0.3-0.8 [facility] Comment on above: Performed By: #### C BC ####[facility] Nmvsqldqqn7958 [place] [id number]. Garima Heraclio Monocytes/100 WBC (Bld) 3.2 % Normal 1.7-12.0 [facility] Comment on above: Performed By: #### C BC ####[facility] Khfkyhptxo9695 [place] [id number]. Garima Pulliam NEUT # 9.8 103/ul Critically high 1.4-6.5 [facility] Comment on above: Performed By: #### C BC ####[facility] Qzqgaisyow0570 [place] [id number]. Garima Pulliam Neutrophils/100 WBC (Bld) 90.5 % Critically high 43.0-75.0 [facility] Comment on above: Performed By: #### C BC ####[facility] Jzvjwmitwi4328 [place] [id number]. Garima Pulliam Platelet mean volume (Bld) [Entitic vol] 9.4 fL Critically low 9.5-13.5 [facility] Comment on above: Performed By: #### C BC ####[facility] Qqqnvenwkb3519 [place] [id number]. Garima Pulliam PLT 208 103/ul Normal 150-450 [facility] Comment on above: Performed By: #### C BC ####[facility] Oceslvwekq5135 [place] [address]Dr. Garima Pulliam RBC 4.97 106/ul Normal 4.70-6.10 [facility] Comment on above: Performed By: #### C BC ####[facility] Ysbfqgxxag3724 [place] [address]Dr. Garima Pulliam WBC 10.8 103/ul Normal 4.0-11.0 [facility] Comment on above: Performed By: #### C BC ####[facility] Qurddwgytq5665 [place] [address]Dr. Garima Pulliam PROF 14(COMP METB)on 022 Albumin [Mass/Vol] 4.0 g/dL Normal 3.4-5.0 [facility] Comment on above: Performed By: #### C MP ####[facility] Gfbvktqwrg0328 [place] [address]Dr. Garima Pulliam Albumin/Globulin [Mass ratio] 1.5 {ratio} Normal [facility] Comment on above: Performed By: #### C MP ####[facility] Tohhxujmdw0603 [place] [address]Dr. Garima Pulliam ALP [Catalytic activity/Vol] 73 U/L Normal 46-116 [facility] Comment on above: Performed By: #### C MP ####[facility] Sfrayzirrj4414 [place] [address]Dr. Garima Pulliam ALT [Catalytic activity/Vol] 42 U/L Normal 16-63 [facility] Comment on above: Performed By: #### C MP ####[facility] Phigjydnwr6446 [place] [address]Dr. Garima Pulliam Anion gap [Moles/Vol] 9.1 mmol/L Normal [facility] Comment on above: Performed By: #### C MP ####[facility] Mkytjvzdfw[address] [place], [place] [address]Dr. Garima Pulliam AST [Catalytic activity/Vol] 28 U/L Normal 15-37 [facility] Comment on above: Performed By: #### C MP ####[facility] Noymyxbjox75[address] [place], [place] [address]Dr. Garima Pulliam Bilirubin [Mass/Vol] 0.6 mg/dL Normal 0.2-1.0 [facility] Comment on above: Performed By: #### C MP ####[facility] Ilussvltjd004[address] [place], [place] [address]Dr. Garima Pulliam Calcium [Mass/Vol] 8.6 mg/dL Normal 8.5-10.1 [facility] Comment on above: Performed By: #### C MP ####[facility] Otacuhymaw[address] [place], [place] [address]Dr. Garima Pulliam Chloride [Moles/Vol] 105 mmol/L Normal 98-107 [facility] Comment on above: Performed By: #### C MP ####[facility] Xtnxjxbggb[address] [place], [place] [address]Dr. Garima Pulliam CO2 [Moles/Vol] 28.5 mmol/L Normal 21.0-32.0 [facility] Comment on above: Performed By: #### C MP ####[facility] Hbtmqoqili20[address] [place], [place] [address]Dr. Garima Heraclio Creatinine [Mass/Vol] 0.78 mg/dL Normal 0.70-1.30 [facility] Comment on above: Performed By: #### C MP ####[facility] Thdbaytbqt79[address] [place], [place] [address]Dr. Chapisrenu Heraclio EGFR-AF URUGUAYAN >60 Normal >=60 [facility] Comment on above: Performed By: #### C MP ####[facility] Hclhlkgvun[address] [place], [place] [address]Dr. Garima Pulliam EGFR-NON AF URUGUAYAN >60 Normal >=60 [facility] Comment on above: Performed By: #### C MP ####[facility] Ceobnznwek9599 [place] [address]Dr. Garima Pulliam Globulin (S) [Mass/Vol] 2.7 g/dL Normal [facility] Comment on above: Performed By: #### C MP ####[facility] Uynsgdrpwx0206 [place] [address]Dr. Garima Pulliam Glucose [Mass/Vol] 220 mg/dL Critically high 74-106 T [facility] Comment on above: Performed By: #### C MP ####[facility] Jmcbtumknc8607 [place] [address]Dr. Garima Pulliam Potassium [Moles/Vol] 3.6 mmol/L Normal 3.5-5.1 [facility] Comment on above: Performed By: #### C MP ####[facility] Zzjwmzlqsc[address] [place], [place] [address]Dr. Garima Pulliam Protein [Mass/Vol] 6.7 g/dL Normal 6.4-8.2 [facility] Comment on above: Performed By: #### C MP ####[facility] Huvbzzhqrr66[address] [place], [place] [address]Dr. Garima Pulliam Sodium [Moles/Vol] 139 mmol/L Normal 136-145 [facility] Comment on above: Performed By: #### C MP ####[facility] Cvpelxvadb[address] [place], [place] [address]Dr. Garima Pulliam Urea nitrogen [Mass/Vol] 11.0 mg/dL Normal 7.0-18.0 [facility] Comment on above: Performed By: #### C MP ####[facility] Ryzxfcnmzn[address] [place], [place] [address]Dr. Garima Pulliam Urea nitrogen/Creatinine [Mass ratio] 14.1 mg/mg Normal [facility] Comment on above: Performed By: #### C MP ####[facility] Uzdczdclsb[address] [place], [place] [address]Dr. Garima Pulliam CARDIAC NASH 3-6on 2 CK [Catalytic activity/Vol] 240 U/L Normal 39-308 [facility] Comment on above: Performed By: #### C MREP ####[facility] Zbrxdwanyo5274 [place] [address]Dr. Garima Pulliam CK.MB [Mass/Vol] 10.38 ng/mL Critically high <=3.60 Th [facility] Comment on above: Performed By: #### C MREP ####[facility] Kboxcajjdv0984 [place] [address]Dr. Garima Pulliam HSTROP 18.5 pg/mL Normal 4.0-76.1 [facility] Comment on above: Result Comment: CUT- OFF POINTS HAVE BEEN ESTABLISHED BASED ON THE FOURTH UNIVERSAL DEFINITIONS OF MYOCARDIALINFARCTION. THE UPPER REFERENCE LIMIT (URL) OF TROPONIN, DEFINED THE 99TH PERCENTILE OFcTnI DISTRIBUTION IN A REFERENCE POPULATION, HAS BEEN CONFIRMED THE DECISION THRESHOLDFOR [place] DIAGNOSIS. Performed By: #### C MREP ####[facility] Snwvkgjtkg8440 [place] [address]Dr. Garima Pulliam CK [Catalytic activity/Vol] 257 U/L Normal 39-308 [facility] Comment on above: Performed By: #### C MREP ####[facility] Blwqmtabmf[address] [place], [place] [address]Dr. Garima Pulliam CK.MB [Mass/Vol] 9.89 ng/mL Critically high <=3.60 [facility] Comment on above: Performed By: #### C MREP ####[facility] Skqehafthb[address] [place], [place] [address]Dr. Garima Pulliam HSTROP 16.9 pg/mL Normal 4.0-76.1 [facility] Comment on above: Result Comment: CUT- OFF POINTS HAVE BEEN ESTABLISHED BASED ON THE FOURTH UNIVERSAL DEFINITIONS OF MYOCARDIALINFARCTION. THE UPPER REFERENCE LIMIT (URL) OF TROPONIN, DEFINED THE 99TH PERCENTILE OFcTnI DISTRIBUTION IN A REFERENCE POPULATION, HAS BEEN CONFIRMED THE DECISION THRESHOLDFOR [place] DIAGNOSIS. Performed By: #### C MREP ####[facility] [address]lujx75[address] [place] [address]Dr. Garima Heraclio CBC AUTO DIFFon 10-22-2022 BASO # 0.0 103/ul Normal 0.0-0.1 [facility] Comment on above: Performed By: #### C BC ####[facility] Ugmkbxdfxz9084 [place] [id number]. Garima Pulliam Basophils/100 WBC (Bld) 0.1 % Critically low 0.2-2.0 [facility] Comment on above: Performed By: #### C BC ####[facility] Gdeteusjaa6044 [place] [address]Dr. Garima Pulliam EO # 0.0 103/ul Normal 0.0-0.7 [facility] Comment on above: Performed By: #### C BC ####[facility] Nxobsrqljc[address] [place], [place] [address]Dr. Chapisrenu Heraclio Eosinophils/100 WBC (Bld) 0.0 % Critically low 0.9-7.0 [facility] Comment on above: Performed By: #### C BC ####[facility] [address]hsaecfxg[address] [place], [place] [address]Dr. Garima Pulliam Erythrocyte distribution width (RBC) [Ratio] 13.6 % Normal 11.0-15.0 [facility] Comment on above: Performed By: #### C BC ####[facility] Yspydvmdlc[address] [place], [place] [address]Dr. Garima Pulliam Hematocrit (Bld) [Volume fraction] 48.2 % Normal 42.0-54.0 [facility] Comment on above: Performed By: #### C BC ####[facility] Qyjdhptmwh[address] [place], [place] [address]Dr. Garima Pulliam Hemoglobin (Bld) [Mass/Vol] 16.0 g/dL Normal 14.0-18.0 [facility] Comment on above: Performed By: #### C BC ####[facility] Pcvitjcryw[address] [place], [place] [address]Dr. Chapisrenu Heraclio IG # 0.02 10e3/ul Normal 0.00-0.03 [facility] Comment on above: Performed By: #### C BC ####[facility] [address] [place] [id number]. Garima Pulliam IG % 0.3 % Normal 0.0-0.5 [facility] Comment on above: Performed By: #### C BC ####[facility] [address]cygbnq[address] [place] [address]Dr. Garima Heraclio LYMPH # 0.5 103/ul Critically low 1.2-3.8 [facility] Comment on above: Performed By: #### C BC ####[facility] [address]ldj[address]ws[address] [place] [address]Dr. Garima Heraclio Lymphocytes/100 WBC (Bld) 7.7 % Critically low 20.5-60.0 [facility] Comment on above: Performed By: #### C BC ####[facility] Ttjcgoyfg[address] [place], [place] [address]Dr. Chapisrenu Pulliam MANUAL DIFF REQ NO Normal [facility] Comment on above: Performed By: #### C BC ####[facility] Dxgxtw[address] [place], [place] [address]Dr. Garima Heraclio MCH (RBC) [Entitic mass] 30.6 pg Normal 25.9-34.0 [facility] Comment on above: Performed By: #### C BC ####[facility] Unecbaiwcu[address] [place], [place] [address]Dr. Garima Pulliam MCHC (RBC) [Mass/Vol] 33.2 g/dL Normal 29.9-35.2 [facility] Comment on above: Performed By: #### C BC ####[facility] S[address]wj[address] [place], [place] [address]Dr. Garima Heraclio MCV (RBC) [Entitic vol] 92.2 fL Normal 80.0-94.0 [facility] Comment on above: Performed By: #### C BC ####[facility] Nkanploysh[address] [place], [place] [address]Dr. Garima Pulliam MONO # 0.0 103/ul Critically low 0.3-0.8 [facility] Comment on above: Performed By: #### C BC ####[facility] Uosqxveqvf53[address] [place] [id number]. Garima Pulliam Monocytes/100 WBC (Bld) 0.4 % Critically low 1.7-12.0 [facility] Comment on above: Performed By: #### C BC ####[facility] Zbilslflgb18[address] [place] [id number]. Garima Pulliam NEUT # 6.2 103/ul Normal 1.4-6.5 [facility] Comment on above: Performed By: #### C BC ####[facility] [address]uwqdfm[address] [place] [address]Dr. Garima Pulliam Neutrophils/100 WBC (Bld) 91.5 % Critically high 43.0-75.0 [facility] Comment on above: Performed By: #### C BC ####[facility] M[address]lvpwkcs4638 [place] [address]Dr. Garima Pulliam Platelet mean volume (Bld) [Entitic vol] 8.7 fL Critically low 9.5-13.5 [facility] Comment on above: Performed By: #### C BC ####[facility] Wnedgxwvmy[address] [place] [address]Dr. Garima Pulliam PLT 179 103/ul Normal 150-450 [facility] Comment on above: Performed By: #### C BC ####[facility] Nkm[address]psiksa44[address] [place] [id number]. Garima Pulliam RBC 5.23 106/ul Normal 4.70-6.10 [facility] Comment on above: Performed By: #### C BC ####[facility] Xq[address]vqh44[address] [place] [address]Dr. Garima Pulliam WBC 6.7 103/ul Normal 4.0-11.0 [facility] Comment on above: Performed By: #### C BC ####[facility] [address]re[address]hlzz[address] [place] [address]Dr. Garima Pulliam PROF CHEM 8 (BAS METB)on Anion gap [Moles/Vol] 12.1 mmol/L Normal [facility] Comment on above: Performed By: #### B MP ####[facility] Fsykcaxpcv[address] [place] [phone]. Garima Pulliam Calcium [Mass/Vol] 8.7 mg/dL Normal 8.5-10.1 The [facility] Comment on above: Performed By: #### B MP ####[facility] Hzuuylhkck4258 [place] [phone]. Garima Pulliam Chloride [Moles/Vol] 105 mmol/L Normal 98-107 [facility] Comment on above: Performed By: #### B MP ####[facility] Lbwcyrhoim0785 [place] [phone]. Garima Pulliam CO2 [Moles/Vol] 25.5 mmol/L Normal 21.0-32.0 [facility] Comment on above: Performed By: #### B MP ####[facility] Xswrxrevzx7072 [place] [address]Dr. Garima Pulliam Creatinine [Mass/Vol] 0.63 mg/dL Critically low 0.70-1.30 [facility] Comment on above: Performed By: #### B MP ####[facility] Kislsofazv4639 [place] [address]Dr. Garima Pulliam EGFR-AF URUGUAYAN >60 Normal >=60 [facility] Comment on above: Performed By: #### B MP ####[facility] Xnsdszdjry[address] [place] [address]Dr. Garima Pulliam EGFR-NON AF URUGUAYAN >60 Normal >=60 [facility] Comment on above: Performed By: #### B MP ####[facility] Lrelquxgza1407 [place] [address]Dr. Garima Pulliam Glucose [Mass/Vol] 162 mg/dL Critically high 74-106 [facility] Comment on above: Performed By: #### B MP ####[facility] [address] [place], [place] [address]Dr. Garima Pulliam Potassium [Moles/Vol] 3.6 mmol/L Normal 3.5-5.1 [facility] Comment on above: Performed By: #### B MP ####[facility] Mmef[address]vyxne[address] [place], [place] [address]Dr. Garima Pulliam Sodium [Moles/Vol] 139 mmol/L Normal 136-145 [facility] Comment on above: Performed By: #### B DAVID ####[facility] [address]apus[address] [place] [address]Dr. Garima Pulliam Urea nitrogen [Mass/Vol] 9.0 mg/dL Normal 7.0-18.0 [facility] Comment on above: Performed By: #### B DAVID ####[facility] [address]emz[address]mt[address] [place] [address]Dr. Garima Pulliam Urea nitrogen/Creatinine [Mass ratio] 14.3 mg/mg Normal [facility] Comment on above: Performed By: #### B DAVID ####[facility] Abj[address]spixs[address] [place] [address]Dr. Chapisrenu Pulliam CARDIAC NASH ADMITon 09-12- 022 CK [Catalytic activity/Vol] 304 U/L Normal 39-308 [facility] Comment on above: Performed By: #### B NANCY HERNANDEZ ####[facility] B[address] [place] [address]Dr. Garima Pulliam CK.MB [Mass/Vol] 11.81 ng/mL Critically high <=3.60 [facility] Comment on above: Performed By: #### B NANCY HERNANDEZ ####[facility] Eeigbotbxw3[address] [place] [address]Dr. Garima Heraclio HSTROP 13.3 pg/mL Normal 4.0-76.1 [facility] Comment on above: Result Comment: CUT- OFF POINTS HAVE BEEN ESTABLISHED BASED ON THE FOURTH UNIVERSAL DEFINITIONS OF MYOCARDIALINFARCTION. THE UPPER REFERENCE LIMIT (URL) OF TROPONIN, DEFINED THE 99TH PERCENTILE OFcTnI DISTRIBUTION IN A REFERENCE POPULATION, HAS BEEN CONFIRMED THE DECISION THRESHOLDFOR [place] DIAGNOSIS. Performed By: #### B NANCY HERNANDEZ ####[facility] K[address]ul[address] [place] [address]Dr. Garima Pulliam DORIS 133 ng/mL Critically high 16-96 [facility] Comment on above: Performed By: #### B NANCY HERNANDEZ ####[facility] Xqqbpijbtj32[address] [place] [address]Dr. Garima Pulliam CBC AUTO DIFFon 09-12-2022 BASO # 0.0 103/ul Normal 0.0-0.1 [facility] Comment on above: Performed By: #### C BC ####[facility] [address] [place], [place] [id number]. Garima Heraclio Basophils/100 WBC (Bld) 0.2 % Normal 0.2-2.0 [facility] Comment on above: Performed By: #### C BC ####[facility] S[address] [place], [place] [address]Dr. Garima Heraclio EO # 0.2 103/ul Normal 0.0-0.7 [facility] Comment on above: Performed By: #### C BC ####[facility] U[address]ihggrs[address] [place], [place] [address]Dr. Chapisrenu Pulliam Eosinophils/100 WBC (Bld) 1.3 % Normal 0.9-7.0 [facility] Comment on above: Performed By: #### C BC ####[facility] Z[address]ud[address] [place], [place] [address]Dr. Garima Pulliam Erythrocyte distribution width (RBC) [Ratio] 13.7 % Normal 11.0-15.0 [facility] Comment on above: Performed By: #### C BC ####[facility] Vrhokqf[address] [place], [place] [address]Dr. Garima Pulliam Hematocrit (Bld) [Volume fraction] 46.4 % Normal 42.0-54.0 [facility] Comment on above: Performed By: #### C BC ####[facility] Qcy[address]mbqyyc[address] [place], [place] [address]Dr. Garima Pulliam Hemoglobin (Bld) [Mass/Vol] 15.7 g/dL Normal 14.0-18.0 [facility] Comment on above: Performed By: #### C BC ####[facility] R[address] [place], [place] [address]Dr. Garima Pulliam IG # 0.04 10e3/ul Critically high 0.00-0.03 [facility] Comment on above: Performed By: #### C BC ####[facility] O[address]smwvvme[address] [place] [id number]. Garima Pulliam IG % 0.3 % Normal 0.0-0.5 [facility] Comment on above: Performed By: #### C BC ####[facility] Rmhtqhxcii8871 [place] [phone]. Garima Pulliam LYMPH # 1.7 103/ul Normal 1.2-3.8 [facility] Comment on above: Performed By: #### C BC ####[facility] Qxvsdlwvnv1042 [place] [phone]. Garima Pulliam Lymphocytes/100 WBC (Bld) 11.5 % Critically low 20.5-60.0 [facility] Comment on above: Performed By: #### C BC ####[facility] Ezmqosbrtl8686 [place] [phone]. Garima Pulliam MANUAL DIFF REQ NO Normal [facility] Comment on above: Performed By: #### C BC ####[facility] Nknwfkciax5149 [place] [phone]. Garima Pulliam MCH (RBC) [Entitic mass] 31.0 pg Normal 25.9-34.0 [facility] Comment on above: Performed By: #### C BC ####[facility] Hqmaewmfsc70[address] [place] [phone]. Garima Pulliam MCHC (RBC) [Mass/Vol] 33.8 g/dL Normal 29.9-35.2 [facility] Comment on above: Performed By: #### C BC ####[facility] Cqvtksixlc7563 [place] [phone]. Garima Pulliam MCV (RBC) [Entitic vol] 91.7 fL Normal 80.0-94.0 [facility] Comment on above: Performed By: #### C BC ####[facility] Jqarpwsvel1707 [place] [phone]. Garima Heraclio MONO # 0.8 103/ul Normal 0.3-0.8 [facility] Comment on above: Performed By: #### C BC ####[facility] Gkkzlonohq7792 [place] [phone]. Garima Pulliam Monocytes/100 WBC (Bld) 5.2 % Normal 1.7-12.0 [facility] Comment on above: Performed By: #### C BC ####[facility] Mthwxqalbe3620 [place] [phone]. Garima Pulliam NEUT # 11.7 103/ul Critically high 1.4-6.5 [facility] Comment on above: Performed By: #### C BC ####[facility] Lgqdipdnxr5909 [place] [phone]. Garima Pulliam Neutrophils/100 WBC (Bld) 81.5 % Critically high 43.0-75.0 [facility] Comment on above: Performed By: #### C BC ####[facility] Msdcsslqvt8057 [place] [address]Dr. Garima Pulliam Platelet mean volume (Bld) [Entitic vol] 8.6 fL Critically low 9.5-13.5 [facility] Comment on above: Performed By: #### C BC ####[facility] Nyhjqsmqth55[address] [place] [phone]. Garima Pulliam PLT 191 103/ul Normal 150-450 [facility] Comment on above: Performed By: #### C BC ####[facility] [address] [place], [place] [address]Dr. Garima Pulliam RBC 5.06 106/ul Normal 4.70-6.10 [facility] Comment on above: Performed By: #### C BC ####[facility] [address] [place], [place] [address]Dr. Garima Pulliam WBC 14.4 103/ul Critically high 4.0-11.0 [facility] Comment on above: Performed By: #### C BC ####[facility] Ozhxvojvyb[address] [place], [place] [address]Dr. Garima Pulliam [facility] SARS-CoV-2 (COVID-19) RNA MARIE+probe Ql (Unsp spec) Not detected Normal NOT DETECTED [facility] Comment on above: Result Comment: When [...] for this test is supported by the Bid Analyst of Health and Human Service's declaration [...] be used). Performed By: #### C VDTBH ####[facility] Wrqhqwpvad[address] [place], [place] [address]Dr. Garima Pulliam LACTATE/LACTIC ACIDon 2021 Lactate [Moles/Vol] 1.0 mmol/L Normal 0.4-1.9 [facility] Comment on above: Performed By: #### L ACT ####[facility] Mgbsceyx[address] [place], [place] [address]Dr. Garima Pulliam PROF CHEM 8 (BAS METB)on Anion gap [Moles/Vol] 11.6 mmol/L Normal [facility] Comment on above: Performed By: #### B NANCY HERNANDEZ ####[facility] Rscdmahidb6[address] [place] [address]Dr. Garima Pulliam Calcium [Mass/Vol] 9.2 mg/dL Normal 8.5-10.1 [facility] Comment on above: Performed By: #### B NANCY HERNANDEZ ####[facility] Xdbsoinjav60[address] [place] [address]Dr. Garima Pulliam Chloride [Moles/Vol] 105 mmol/L Normal 98-107 [facility] Comment on above: Performed By: #### B MP, CMADM ####[facility] Pwlweabfrb55[address] [place] [phone]. Garima Pulliam CO2 [Moles/Vol] 25.9 mmol/L Normal 21.0-32.0 [facility] Comment on above: Performed By: #### B DAVID, CMADM ####[facility] Clwqdbxhiq2445 [place] [address]Dr. Garima Pulliam Creatinine [Mass/Vol] 0.72 mg/dL Normal 0.70-1.30 [facility] Comment on above: Performed By: #### B DAVID, CMADM ####[facility] Wsrjtrphzd59[address] [place] [phone]. Garima Pulliam EGFR-AF URUGUAYAN >60 Normal >=60 [facility] Comment on above: Performed By: #### B DAVID, CMADM ####[facility] Xxowglifap45[address] [place] [address]Dr. Chapisrenu Pulliam EGFR-NON AF URUGUAYAN >60 Normal >=60 [facility] Comment on above: Performed By: #### B DAVID, CMAANA ROSA ####[facility] N[address]potbdq6[address] [place] [address]Dr. Garima Pulliam Glucose [Mass/Vol] 111 mg/dL Critically high 74-106 [facility] Comment on above: Performed By: #### B DAVID, CMADM ####[facility] Ljoujzohxt[address] [place] [address]Dr. Chapisrenu Pulliam Potassium [Moles/Vol] 3.5 mmol/L Normal 3.5-5.1 [facility] Comment on above: Performed By: #### B DAVID, CMADM ####[facility] [address]zsgdipbe7[address] [place] [address]Dr. Chapisrenu Pulliam Sodium [Moles/Vol] 139 mmol/L Normal 136-145 [facility] Comment on above: Performed By: #### B DAVID, CMADM ####[facility] [address] [place] [address]Dr. Garima Pulliam Urea nitrogen [Mass/Vol] 7.0 mg/dL Normal 7.0-18.0 [facility] Comment on above: Performed By: #### B DAVID, CMADM ####[facility] [address] [place], [place] [address]Rk. Garima Pulliam Urea nitrogen/Creatinine [Mass ratio] 9.7 mg/mg Normal [facility] Comment on above: Performed By: #### B MP, CMADM ####[facility] [address] [place], [place] [address]Zo. Garima Pulliam XR CHEST 1 Von 09-12-2022 XR CHEST 1 V Normal [facility] Encounters Encounter Date Encounter Type Care [...] Facility:H1 Payers Date Payer Category Payer Unknown [id number] 1960 Medicaid [id number] 1960 Unknown [id number] 1959 Unknown [id number] 1954 Unknown [id number] 2.16.84 0.1.718123.3.579.2.593 1954 Unknown [id number] 2.16.84 0.1.976406.3.579.2.593 1954 Unknown [id number] 2.16.84 0.1.313877.3.579.2.593 1954 Unknown [id number] 2.16.84 0.1.678733.3.579.2.593 1954 Unknown [id number] 2.16.84 0.1.657231.3.579.2.593 1954 Unknown [id number] 2.16.84 0.1.441828.3.579.2.593 1954 Unknown [id number] 2.16.84 0.1.044616.3.579.2.593 1954 Unknown [id number] 2.16.84 0.1.552127.3.579.2.593 1954 Unknown [id number] 2.16.84 0.1.403498.3.579.2.593 1954 Unknown [id number] 2.16.84 0.1.692666.3.579.2.593 1954 Unknown [id number] 2.16.84 0.1.407340.3.579.2.593 1954 Unknown [id number] 2.16.84 0.1.604612.3.579.2.593 1954 Unknown [id number] 2.16.84 0.1.992910.3.579.2.593 1954 Unknown [id number] 2.16.84 0.1.101561.3.579.2.593 1954 Unknown [id number] 2.16.84 0.1.455917.3.579.2.593 1954 Unknown [id number] 2.16.84 0.1.829626.3.579.2.593 1954 Unknown [id number] 2.16.84 0.1.029910.3.579.2.593 1954 Unknown [id number] 2.16.84 0.1.743279.3.579.2.593 1954 Unknown [id number] 2.16.84 0.1.607997.3.579.2.593 1954 Unknown [id number] 2.16.84 0.1.451130.3.579.2.593 Summary Purpose Family History No Family History Records Found Advance Directives No Advanced Directives Records Found Additional Source Comments (unrecognized sect ion and content) No Status Records Found INFORMATION SOURCE (unrecogn ized section and content) DATE CREATED AUTHOR 04/08/2023 [facility] FOR RECORDS PERTAINING TO PATIENTS [...] BE BASED ON THE PRIMARY CLINICAL RECORDS. [facility] [employer] [facility] provides no warranty or guarantee of the accuracy or completeness of information in this document.
[2025-01-19 21:46] VITALS: BP 179/104; PULSE 88; TEMP 36.6; O2SAT 95
[2025-01-19 22:10] VITALS: PULSE 79; O2SAT 92
[2025-01-19] MEDS: IPRATROPIUM/ALBUTEROL SULFATE 3 ML AMPUL.NEB IH (22:10)
[2025-01-19 22:19] VITALS: PULSE 75; O2SAT 97
--- NOTE | 2025-01-19 22:29 | ED.SOB1 ---
HPI - SOB/Dyspnea General Chief Complaint: Shortness of Breath/Dyspnea Stated Complaint: SOB Time Seen by Provider: 01/19/25 21:48 Source: patient Mode of arrival: Wheelchair Limitations: no limitations History of Present Illness HPI Narrative: This 69-year-old male with a history of COPD who continues to smoke presents for evaluation of shortness of breath. He states he needs a breathing treatment and refills on his medications. He denies any chest pain or fever. He also request that I look at his left great toe. His toenail is falling off. He denies any injury. He is not diabetic. Related Data Home Medications ?Medication ?Instructions ?Recorded ?Confirmed albuterol sulfate 90 mcg/actuation 2 inh inhalation Q6H PRN shortness 03/13/24 01/02/25 aerosol inhaler of breath or wheezing Previous Rx's ?Medication ?Instructions ?Recorded losartan 100 mg tablet 100 mg PO DAILY #30 tabs 12/27/23 prednisone 20 mg tablet See Rx Instructions .Route 09/21/24 .COMPLEX #12 tabs albuterol sulfate 2.5 mg/0.5 mL 2.5 mg (0.5 mL) inhalation Q4H PRN 10/02/24 solution for nebulization shortness of breath or wheezing #30 ea hydrocodone 5 mg-acetaminophen 325 1 tab PO Q4H PRN pain #10 tabs 11/11/24 mg tablet ketorolac 10 mg tablet 10 mg PO Q8H PRN pain 1 day #10 11/11/24 tabs metformin 500 mg tablet 500 mg PO BID #30 tabs 11/11/24 ondansetron 4 mg disintegrating 4 mg PO Q4H PRN nausea and 11/11/24 tablet vomiting 3 days #6 tabs tamsulosin 0.4 mg capsule (Flomax) 0.4 mg PO DAILY 7 days #7 caps 11/11/24 tamsulosin 0.4 mg capsule (Flomax) 0.4 mg PO DAILY #14 caps 11/12/24 ipratropium 0.5 mg-albuterol 3 mg 3 ml inhalation Q4H PRN shortness 12/10/24 (2.5 mg base)/3 mL nebulization of breath #90 mL soln albuterol sulfate 2.5 mg/3 mL 2.5 mg (3 mL) inhalation Q6H PRN 12/24/24 (0.083 %) solution for nebulization shortness of breath or wheezing #90 mL losartan 100 mg tablet (Cozaar) 100 mg PO DAILY #30 tabs 12/24/24 dicyclomine 10 mg capsule 10 mg PO QID PRN abdominal pain 12/28/24 #20 caps ondansetron 4 mg disintegrating 4 mg PO Q6H PRN nausea and 12/28/24 tablet vomiting #20 tabs albuterol sulfate 90 mcg/actuation 2 inh inhalation QID PRN shortness 01/02/25 aerosol inhaler of breath or wheezing #8.5 grams losartan 100 mg tablet 100 mg PO DAILY #10 tabs 01/02/25 meloxicam 7.5 mg tablet 7.5 mg PO DAILY PRN pain #10 tabs 01/02/25 oxycodone-acetaminophen 5 mg-325 1 tab PO Q12H PRN pain 3 days #6 01/02/25 mg tablet (Percocet) tabs tamsulosin 0.4 mg capsule (Flomax) 0.4 mg PO DAILY #10 caps 01/02/25 Allergies Allergy/AdvReac Type Severity Reaction Status Date / Time No Known Drug Allergies Allergy Verified 01/19/25 21:49 Review of Systems ROS Status of ROS 10 or more systems reviewed and unremarkable except as noted in history and below [facility] Medical History (Updated 01/19/25 @ 23:40 by Teresa Ag MD) Hypokalemia ?E87.6 - Hypokalemia (ICD-10) New onset type 2 diabetes mellitus ?E11.9 - Type 2 diabetes mellitus without complications (ICD-10) Lower extremity edema ?R60.0 - Localized edema (ICD-10) Edema ?R60.9 - Edema, unspecified (ICD-10) Acute hyperglycemia ?R73.9 - Hyperglycemia, unspecified (ICD-10) Tobacco abuse ?Z72.0 - Tobacco use (ICD-10) HTN (hypertension) ?I10 - Essential (primary) hypertension (ICD-10) Community acquired pneumonia ?J18.9 - Pneumonia, unspecified organism (ICD-10) Chronic obstructive pulmonary disease ?J44.9 - Chronic obstructive pulmonary disease, unspecified (ICD-10) Acute exacerbation of chronic obstructive pulmonary disease (COPD) ?J44.1 - Chronic obstructive pulmonary disease with (acute) exacerbation (ICD-10) RLL pneumonia ?J18.9 - Pneumonia, unspecified organism (ICD-10) COPD (chronic obstructive pulmonary disease) ?J44.9 - Chronic obstructive pulmonary disease, unspecified (ICD-10) Surgical History (Updated 01/29/24 @ 06:45 by Latonia Martin RN) Hx of tonsillectomy ?Z90.89 - Acquired absence of other organs (ICD-10) Family History (Updated 12/25/23 @ 21:28 by Kym Ordaz) Mother Family history of cancer Family history of hypertension Father Family history of cancer Social History Within the past year, how often did you have a drink containing alcohol: 4 or more times a week Within the past year, how many standard drinks containing alcohol did you have on a typical day: 3 or 4 Within the past year, how often did you have six or more drinks on one occasion: less than monthly Total score: 3 Score interpretation: A score of 4 or more indicates drinking is likely to affect patient's safety. Smoking status: Current every day smoker Non-prescribed substance use: cannabis (any form) Previous occupational history: retired Highest level of school completed/degree received: high school graduate Are you now , , , , never or living with a partner: In a typical week, how many times do you talk on the telephone with family, friends, or neighbors: twice per week How often do you get together with friends or relatives: once per week How often do you attend scientology or orthodox services: never Do you belong to any clubs or organizations such as scientology groups unions, fraternal or athletic groups, or school groups: no Total score: 1 Score interpretation: A score of less than or equal to 1 indicates the most socially isolated. Little interest or pleasure in doing things: not at all Feeling down, depressed, or hopeless: not at all Feel stressed/tense/nervous/anxious/difficulty sleeping: not at all Do you think of yourself as: straight/heterosexual Gender Identity: male Exam Narrative Exam Narrative: Vital signs and Nursing Notes reviewed: Patient is afebrile with a normal pulse, blood pressure is elevated 179/104, he is not hypoxic with pulse ox of 97% on room air General: Awake, alert, oriented, thin, poorly kempt adult male, no respiratory distress HEENT: Normocephalic atraumatic, mucous membranes are moist and pink, eyes are clear, normal conjunctiva, vision is grossly intact Neck: Supple, no meningeal signs Chest: Diffusely diminished breath sounds with occasional expiratory wheezing, no rhonchi or rales appreciated CVS: Regular rate and rhythm S1-S2, no murmurs rubs or gallops, pulses are brisk and equal bilaterally ABD: Soft, nondistended, nontender, no rebound guarding or rigidity, bowel sounds are normal, no pulsatile masses appreciated Extremities: Moving all extremities, toenails are hypertrophic and overgrown. The left great toenail is almost completely disconnected from the toe, there is mild erythema to the great toe- left foot was soaked in Hibiclens/water and it was re-evaluated, the tissue under the nailbed is somewhat necrotic. Nail was removed. Skin: Normal in appearance without rash,pallor, petechiae or purpura Neuro: No focal deficits Constitutional Vital Signs, click to edit/add: Last Vital Signs Temp 97.9 F 01/19/25 21:46 Pulse 75 01/19/25 22:19 Resp 18 01/19/25 22:19 BP 179/104 H 01/19/25 21:46 Pulse Ox 97 01/19/25 22:19 O2 Del Method Room Air 01/19/25 22:19 Course Vital Signs Vital signs: Vital Signs Temperature 97.9 F 01/19/25 21:46 Pulse Rate 88 01/19/25 21:46 Respiratory Rate 22 H 01/19/25 21:46 Blood Pressure 179/104 H 01/19/25 21:46 Pulse Oximetry 95 01/19/25 21:46 Oxygen Delivery Method Room Air 01/19/25 21:46 Temperature 97.9 F 01/19/25 21:46 Pulse Rate 75 01/19/25 22:19 Respiratory Rate 18 01/19/25 22:19 Blood Pressure 179/104 H 01/19/25 21:46 Pulse Oximetry 97 01/19/25 22:19 Oxygen Delivery Method Room Air 01/19/25 22:19 Discharge Plan Discharge Chief Complaint: Shortness of Breath/Dyspnea Clinical Impression: COPD (chronic obstructive pulmonary disease), Avulsed toenail, Hypertrophic toenail Patient Disposition: Home, Self-Care Time of Disposition Decision: 23:41 Condition: Good Prescriptions / Home Meds: No Action losartan 100 mg tablet 100 mg PO DAILY Qty: 30 11RF albuterol sulfate 90 mcg/actuation HFA aerosol inhaler 2 inh inhalation Q6H PRN (Reason: shortness of breath or wheezing) prednisone 20 mg tablet See Rx Instructions .ROUTE .COMPLEX Qty: 12 0RF Rx Instructions: 3 tabs daily for 2 days, then 2 tabs daily for 2 days, then 1 tab daily for 2 days albuterol sulfate 2.5 mg/0.5 mL solution for nebulization 2.5 mg inhalation Q4H PRN (Reason: shortness of breath or wheezing) Qty: 30 2RF dicyclomine 10 mg capsule 10 mg PO QID PRN (Reason: abdominal pain) Qty: 20 0RF ondansetron 4 mg tablet,disintegrating 4 mg PO Q6H PRN (Reason: nausea and vomiting) Qty: 20 0RF hydrocodone-acetaminophen 5-325 mg tablet 1 tab PO Q4H PRN (Reason: pain) Qty: 10 0RF ketorolac 10 mg tablet 10 mg PO Q8H PRN (Reason: pain) 1 Days Qty: 10 0RF tamsulosin [Flomax] 0.4 mg capsule 0.4 mg PO DAILY 7 Days Qty: 7 0RF ondansetron 4 mg tablet,disintegrating 4 mg PO Q4H PRN (Reason: nausea and vomiting) 3 Days Qty: 6 0RF metformin 500 mg tablet 500 mg PO BID Qty: 30 0RF tamsulosin [Flomax] 0.4 mg capsule 0.4 mg PO DAILY Qty: 14 0RF ipratropium-albuterol 0.5 mg-3 mg(2.5 mg base)/3 mL solution for nebulization 3 ml inhalation Q4H PRN (Reason: shortness of breath) Qty: 90 0RF Rx Instructions: until breathing returns to target peak flow/parameters losartan [Cozaar] 100 mg tablet 100 mg PO DAILY Qty: 30 0RF albuterol sulfate 2.5 mg /3 mL (0.083 %) solution for nebulization 2.5 mg inhalation Q6H PRN (Reason: shortness of breath or wheezing) Qty: 90 1RF losartan 100 mg tablet 100 mg PO DAILY Qty: 10 0RF tamsulosin [Flomax] 0.4 mg capsule 0.4 mg PO DAILY Qty: 10 0RF meloxicam 7.5 mg tablet 7.5 mg PO DAILY PRN (Reason: pain) Qty: 10 0RF oxycodone-acetaminophen [Percocet] 5-325 mg tablet 1 tab PO Q12H PRN (Reason: pain) 3 Days Qty: 6 0RF albuterol sulfate 90 mcg/actuation HFA aerosol inhaler 2 inh inhalation QID PRN (Reason: shortness of breath or wheezing) Qty: 8.5 0RF Print Language: Nauruan Instructions: COPD (Chronic Obstructive Pulmonary Disease) (ED), Nail Avulsion (ED), Nail Removal (ED) Referrals: SERG DUENAS [Primary Care Provider] - 1 week SAKSHI IRVING MD [Physician] - 1 week Mathew Pineda MD [Physician] - 1 week Procedures ED Procedure Instructions Procedures Procedures: Left great toenail removal. At the patient's request the left great toenail was removed. 1% lidocaine was infiltrated along the medial aspect of the patient's toenail. When anesthesia was obtained the toenail was removed from the nailbed with scissors and forceps. The tissue was removed and a xeroform dressing was placed by the nursing staff. Patient was medicated with a dose of Augmentin and will be discharged home with Augmentin with referral to outpatient podiatry.
--- NOTE | 2025-01-19 22:29 | PC.NURSE ---
this patient complains shortness of breath and ran out of his breathing medication. this patient sitting upright in the chair and watching tv.
[2025-01-19] MEDS: AMOXICILLIN/POT CLAV 875-125 MG TABLET 1 TAB PO (23:51)
[2025-01-19] MEDS: LIDOCAINE HCL 1% 100 MG/10 ML MDV INJ (23:52)
[2025-01-20] MEDS: ALBUTEROL SULFATE 200 PUFF/6.7 GM INHALER IH (00:08)
--- NOTE | 2025-01-20 00:12 | PC.NURSE ---
this patient's right great toe was dressed this patient refused discharge vitals, I am hurry to get home to have a beer i gave this patient verbal and paper discharge orders along with 2 Rx and 1 medication to take home. this patient voices yes to understanding these. at time of discharge this patient voices no concerns and shows no signs of distress
== END 2025-01-20 00:15 | disposition home or self-care (01) ==
PROVIDERS: Emergency Provider Emergency Medicine
DX: S91.202A Unspecified open wound of left great toe with damage to nail, initial encounter (principal); J44.9 Chronic obstructive pulmonary disease, unspecified; R06.02 Shortness of breath; F17.200 Nicotine dependence, unspecified, uncomplicated; L60.2 Onychogryphosis
CPT/HCPCS: 11730; 73630; 94640; 99284

== ENCOUNTER 2025-01-24 14:25 | Emergency (ER) | payer MEDICARE, SELFPAY ==
[2025-01-24 14:29] VITALS: BP 200/100; PULSE 90; TEMP 36.9; O2SAT 95; BMI 24.4
--- NOTE | 2025-01-24 15:18 | ECG_ITS ---
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 Measurements Intervals Gary Rate: 74 P: 73 CO: 202 QRS: 8 QRSD: 106 T: 30 QT: 386 QTc: 413 Interpretive Statements 1100 Sinus rhythm 1102 Sinus arrhythmia 3434 Septal myocardial infarction, age undetermined 9150 abnormal ECG Compared to ECG 12/28/2024 18:34:56 Myocardial infarct finding still present Electronically Signed On 01-25-2025 9:08:19 EST by LISY VENEGAS M.D.
--- NOTE | 2025-01-24 15:19 | ED.GENADUL1 ---
Documented by User: PALMIRA Pederson 01/24/25 17:04 HPI HPI - General Adult General Chief complaint: Shortness of Breath/Dyspnea Stated complaint: SOB Time Seen by Provider: 01/24/25 15:05 Source: patient Mode of arrival: Wheelchair Limitations: no limitations History of Present Illness HPI narrative: Patient is a 69-year-old male well-known to this emergency department with an extensive history of COPD who presents to the ER for shortness of breath for the last several days. He was seen in this emergency department recently for the same, he typically requests a breathing treatment and to be discharged home. Today when asked if he is agreeable to a chest x-ray and a workup for his shortness of breath he states he is if you want . He has no complaints of chest pain. He states he had a toenail recently removed in this ER and he would like the dressing changed and for us to evaluate that area. He has been intermittently using the antibiotics that he was prescribed in the ER previously. He denies fevers, sputum production or hemoptysis. Related Data Home Medications ?Medication ?Instructions ?Recorded ?Confirmed albuterol sulfate 90 mcg/actuation 2 inh inhalation Q6H PRN shortness 03/13/24 01/02/25 aerosol inhaler of breath or wheezing Previous Rx's ?Medication ?Instructions ?Recorded losartan 100 mg tablet 100 mg PO DAILY #30 tabs 12/27/23 prednisone 20 mg tablet See Rx Instructions .Route 09/21/24 .COMPLEX #12 tabs albuterol sulfate 2.5 mg/0.5 mL 2.5 mg (0.5 mL) inhalation Q4H PRN 10/02/24 solution for nebulization shortness of breath or wheezing #30 ea hydrocodone 5 mg-acetaminophen 325 1 tab PO Q4H PRN pain #10 tabs 11/11/24 mg tablet ketorolac 10 mg tablet 10 mg PO Q8H PRN pain 1 day #10 11/11/24 tabs metformin 500 mg tablet 500 mg PO BID #30 tabs 11/11/24 ondansetron 4 mg disintegrating 4 mg PO Q4H PRN nausea and 11/11/24 tablet vomiting 3 days #6 tabs tamsulosin 0.4 mg capsule (Flomax) 0.4 mg PO DAILY 7 days #7 caps 12/20/24 tamsulosin 0.4 mg capsule (Flomax) 0.4 mg PO DAILY #14 caps 11/12/24 ipratropium 0.5 mg-albuterol 3 mg 3 ml inhalation Q4H PRN shortness 12/10/24 (2.5 mg base)/3 mL nebulization of breath #90 mL soln albuterol sulfate 2.5 mg/3 mL 2.5 mg (3 mL) inhalation Q6H PRN 12/24/24 (0.083 %) solution for nebulization shortness of breath or wheezing #90 mL losartan 100 mg tablet (Cozaar) 100 mg PO DAILY #30 tabs 12/24/24 dicyclomine 10 mg capsule 10 mg PO QID PRN abdominal pain 12/28/24 #20 caps ondansetron 4 mg disintegrating 4 mg PO Q6H PRN nausea and 12/28/24 tablet vomiting #20 tabs albuterol sulfate 90 mcg/actuation 2 inh inhalation QID PRN shortness 01/02/25 aerosol inhaler of breath or wheezing #8.5 grams losartan 100 mg tablet 100 mg PO DAILY #10 tabs 01/02/25 meloxicam 7.5 mg tablet 7.5 mg PO DAILY PRN pain #10 tabs 01/02/25 oxycodone-acetaminophen 5 mg-325 1 tab PO Q12H PRN pain 3 days #6 01/02/25 mg tablet (Percocet) tabs tamsulosin 0.4 mg capsule (Flomax) 0.4 mg PO DAILY #10 caps 01/02/25 albuterol sulfate 2.5 mg/3 mL 2.5 mg (3 mL) inhalation Q6H PRN 01/24/25 (0.083 %) solution for nebulization shortness of breath or wheezing #90 mL losartan 100 mg tablet 100 mg PO DAILY #30 tabs 01/24/25 metformin 500 mg tablet 500 mg PO BID #20 tabs 01/24/25 Allergies Allergy/AdvReac Type Severity Reaction Status Date / Time No Known Drug Allergies Allergy Verified 01/19/25 21:49 Opioid HPI Opioid Management Most Recent Opioid Data: Last Pain Scale 6 01/02/25 11:08 01/02/25 Last ORT Total Score 0 01/29/24 06:36 01/29/24 Last ORT Risk Category Low Risk 01/29/24 06:36 01/29/24 Review of Systems ROS Constitutional Denies: fever or chills Ears, nose, mouth, and throat Denies: throat pain or nasal congestion Cardiovascular Denies: chest pain Respiratory Reports: shortness of breath, cough and wheezing Gastrointestinal Denies: nausea or vomiting Musculoskeletal Denies: back pain Integumentary/Breast Denies: rash Neurological Denies: numbness in extremities or weakness in extremities Hematologic/Lymphatic Denies: easy bruising or easy bleeding PFSH PFS Medical History (Updated 01/24/25 @ 16:57 by PALMIRA Pederson) Hypokalemia ?E87.6 - Hypokalemia (ICD-10) New onset type 2 diabetes mellitus ?E11.9 - Type 2 diabetes mellitus without complications (ICD-10) Lower extremity edema ?R60.0 - Localized edema (ICD-10) Edema ?R60.9 - Edema, unspecified (ICD-10) Acute hyperglycemia ?R73.9 - Hyperglycemia, unspecified (ICD-10) Tobacco abuse ?Z72.0 - Tobacco use (ICD-10) HTN (hypertension) ?I10 - Essential (primary) hypertension (ICD-10) Community acquired pneumonia ?J18.9 - Pneumonia, unspecified organism (ICD-10) Chronic obstructive pulmonary disease ?J44.9 - Chronic obstructive pulmonary disease, unspecified (ICD-10) Acute exacerbation of chronic obstructive pulmonary disease (COPD) ?J44.1 - Chronic obstructive pulmonary disease with (acute) exacerbation (ICD-10) RLL pneumonia ?J18.9 - Pneumonia, unspecified organism (ICD-10) COPD (chronic obstructive pulmonary disease) ?J44.9 - Chronic obstructive pulmonary disease, unspecified (ICD-10) Surgical History (Updated 01/29/24 @ 06:45 by Latonia Martin RN) Hx of tonsillectomy ?Z90.89 - Acquired absence of other organs (ICD-10) Family History (Updated 12/25/23 @ 21:28 by Kym Ordaz) Mother Family history of cancer Family history of hypertension Father Family history of cancer Social History Within the past year, how often did you have a drink containing alcohol: 4 or more times a week Within the past year, how many standard drinks containing alcohol did you have on a typical day: 3 or 4 Within the past year, how often did you have six or more drinks on one occasion: less than monthly Total score: 3 Score interpretation: A score of 4 or more indicates drinking is likely to affect patient's safety. Smoking status: Current every day smoker Non-prescribed substance use: cannabis (any form) Previous occupational history: retired Highest level of school completed/degree received: high school graduate Are you now , , , , never or living with a partner: In a typical week, how many times do you talk on the telephone with family, friends, or neighbors: twice per week How often do you get together with friends or relatives: once per week How often do you attend pentecostalism or zoroastrianism services: never Do you belong to any clubs or organizations such as pentecostalism groups unions, [employer] or athletic groups, or school groups: no Total score: 1 Score interpretation: A score of less than or equal to 1 indicates the most socially isolated. Little interest or pleasure in doing things: not at all Feeling down, depressed, or hopeless: not at all Feel stressed/tense/nervous/anxious/difficulty sleeping: not at all Do you think of yourself as: straight/heterosexual Gender Identity: male Exam Narrative Exam Narrative: Gen.: Awake, alert, in no distress, patient is standing at the sink drinking water from the faucet on entering his room Head: Normocephalic, atraumatic ENT: Moist mucous membranes Respiratory: No respiratory distress, inspiratory and expiratory wheezing Cardio: Regular rate and rhythm Extremities: Moves extremities equally, left great toe with toenail avulsion, minimal surrounding erythema of the nailbed, no evidence of significant cellulitis or infection. No purulent drainage Psych: Normal mood and affect Neuro: No focal neuro deficit Skin: Warm, dry, intact Constitutional Vital Signs, click to edit/add: Last Vital Signs Temp 98.4 F 01/24/25 14:29 Pulse 70 01/24/25 16:35 Resp 20 01/24/25 16:35 BP 196/87 H 01/24/25 16:35 Pulse Ox 96 01/24/25 16:35 O2 Del Method Room Air 01/24/25 16:35 Course Vital Signs Vital signs: Vital Signs Temperature 98.4 F 01/24/25 14:29 Pulse Rate 90 01/24/25 14:29 Respiratory Rate 20 01/24/25 14:29 Blood Pressure 200/100 H 01/24/25 14:29 Pulse Oximetry 95 01/24/25 14:29 Oxygen Delivery Method Room Air 01/24/25 14:29 Temperature 98.4 F 01/24/25 14:29 Pulse Rate 70 01/24/25 16:35 Respiratory Rate 20 01/24/25 16:35 Blood Pressure 196/87 H 01/24/25 16:35 Pulse Oximetry 96 01/24/25 16:35 Oxygen Delivery Method Room Air 01/24/25 16:35 Medical Decision Making MDM Narrative Medical decision making narrative: This patient has a history of long-term medication noncompliance. He has been placed on metformin and losartan from this emergency department previously due to uncontrolled blood sugars and blood pressure. He was given a breathing treatment in the ER, labs are grossly stable aside from elevated blood sugar. Blood pressure improved some on recheck, patient has no complaints of chest pain, headache. He was given albuterol breathing treatments for home with a refill of losartan and metformin. He was instructed to follow closely with his primary care provider for reevaluation of his blood pressure and his blood sugar. Return to the emergency department if symptoms change or worsen SUPERVISED APC VISIT, PHYSICIAN ATTESTATION: Based on the medical record the care appears appropriate. ? Medical Records Medical records reviewed: Yes I reviewed the patient's medical records Lab Data Lab results reviewed: Yes I reviewed the patient's lab results Labs: Lab Results 01/24/25 01/24/25 Range/Units 15:54 16:15 WBC 8.6 (4.0-11.0) 10^3/uL RBC 4.62 L (4.70-6.10) 10^6/uL Hgb 13.9 L (14.0-18.0) g/dL Hct 40.9 L (42.0-54.0) % MCV 88.5 (80.0-94.0) fL MCH 30.1 (25.9-34.0) pg MCHC 34.0 (29.9-35.2) g/dL RDW 13.2 (11.0-15.0) % Plt Count 203 (150-450) 10^3/uL MPV 9.1 L (9.5-13.5) fL Neut % (Auto) 73.3 (43.0-75.0) % Lymph % (Auto) 18.7 L (20.5-60.0) % Daggett % (Auto) 6.3 (1.7-12.0) % Eos % (Auto) 1.3 (0.9-7.0) % Baso % (Auto) 0.2 (0.2-2.0) % Neut # (Auto) 6.3 (1.4-6.5) 10^3/uL Lymph # (Auto) 1.6 (1.2-3.8) 10^3/uL Daggett # (Auto) 0.5 (0.3-0.8) 10^3/uL Eos # (Auto) 0.1 (0.0-0.7) 10^3/uL Baso # (Auto) 0.0 (0.0-0.1) 10^3/uL Abs Immat Gran (auto) 0.02 (0.00-0.03) 10^3/uL Imm/Tot Granulo (auto) 0.2 (0.0-0.5) % VBG pH 7.412 (7.330-7.430) VBG pCO2 46.3 (40.0-52.0) mmHg Sodium 135 L (136-145) mmol/L Potassium 4.5 (3.5-5.1) mmol/L Chloride 102 (98-107) mmol/L Carbon Dioxide 30.4 (21.0-32.0) mmol/L Anion Gap 7.1 BUN 8.0 (7.0-18.0) mg/dL Creatinine 0.85 (0.70-1.30) mg/dL Est GFR ( Amer) >60 (>=60 mL/min/1.73m^2) Est GFR (Non-Af Amer) >60 (>=60 mL/min/1.73m^2) BUN/Creatinine Ratio 9.4 Glucose 437 H (74-106) mg/dL Calcium 9.1 (8.5-10.1) mg/dL Total Bilirubin 0.2 (0.2-1.0) mg/dL AST 30 (15-37) U/L ALT 50 (16-63) U/L Alkaline Phosphatase 109 (46-116) U/L Troponin I High Sens 16.7 (4.0-76.1) pg/mL NT-Pro-B Natriuret Pep 372.0 (<=900.0) pg/mL Total Protein 6.4 (6.4-8.2) g/dL Albumin 3.7 (3.4-5.0) g/dL Globulin 2.7 g/dL Albumin/Globulin Ratio 1.4 Imaging Data Chest x-ray: Attestation: I have reviewed the pertinent imaging results. ECG Data Attestation: I personally reviewed and interpreted this ECG as follows: (Normal sinus rhythm at a rate of 74, sinus arrhythmia, no acute ST elevation or ectopy. EKG reviewed by attending physician) Discharge Plan Discharge Chief Complaint: Shortness of Breath/Dyspnea Clinical Impression: Shortness of breath, Hypertension, Hyperglycemia, Encounter for wound care Patient Disposition: Home, Self-Care Time of Disposition Decision: 16:57 Condition: Good Prescriptions / Home Meds: New metformin 500 mg tablet 500 mg PO BID Qty: 20 0RF losartan 100 mg tablet 100 mg PO DAILY Qty: 30 0RF albuterol sulfate 2.5 mg /3 mL (0.083 %) solution for nebulization 2.5 mg inhalation Q6H PRN (Reason: shortness of breath or wheezing) Qty: 90 0RF No Action losartan 100 mg tablet 100 mg PO DAILY Qty: 30 11RF albuterol sulfate 90 mcg/actuation HFA aerosol inhaler 2 inh inhalation Q6H PRN (Reason: shortness of breath or wheezing) prednisone 20 mg tablet See Rx Instructions .ROUTE .COMPLEX Qty: 12 0RF Rx Instructions: 3 tabs daily for 2 days, then 2 tabs daily for 2 days, then 1 tab daily for 2 days albuterol sulfate 2.5 mg/0.5 mL solution for nebulization 2.5 mg inhalation Q4H PRN (Reason: shortness of breath or wheezing) Qty: 30 2RF dicyclomine 10 mg capsule 10 mg PO QID PRN (Reason: abdominal pain) Qty: 20 0RF ondansetron 4 mg tablet,disintegrating 4 mg PO Q6H PRN (Reason: nausea and vomiting) Qty: 20 0RF hydrocodone-acetaminophen 5-325 mg tablet 1 tab PO Q4H PRN (Reason: pain) Qty: 10 0RF ketorolac 10 mg tablet 10 mg PO Q8H PRN (Reason: pain) 1 Days Qty: 10 0RF tamsulosin [Flomax] 0.4 mg capsule 0.4 mg PO DAILY 7 Days Qty: 7 0RF ondansetron 4 mg tablet,disintegrating 4 mg PO Q4H PRN (Reason: nausea and vomiting) 3 Days Qty: 6 0RF metformin 500 mg tablet 500 mg PO BID Qty: 30 0RF tamsulosin [Flomax] 0.4 mg capsule 0.4 mg PO DAILY Qty: 14 0RF ipratropium-albuterol 0.5 mg-3 mg(2.5 mg base)/3 mL solution for nebulization 3 ml inhalation Q4H PRN (Reason: shortness of breath) Qty: 90 0RF Rx Instructions: until breathing returns to target peak flow/parameters losartan [Cozaar] 100 mg tablet 100 mg PO DAILY Qty: 30 0RF albuterol sulfate 2.5 mg /3 mL (0.083 %) solution for nebulization 2.5 mg inhalation Q6H PRN (Reason: shortness of breath or wheezing) Qty: 90 1RF losartan 100 mg tablet 100 mg PO DAILY Qty: 10 0RF tamsulosin [Flomax] 0.4 mg capsule 0.4 mg PO DAILY Qty: 10 0RF meloxicam 7.5 mg tablet 7.5 mg PO DAILY PRN (Reason: pain) Qty: 10 0RF oxycodone-acetaminophen [Percocet] 5-325 mg tablet 1 tab PO Q12H PRN (Reason: pain) 3 Days Qty: 6 0RF albuterol sulfate 90 mcg/actuation HFA aerosol inhaler 2 inh inhalation QID PRN (Reason: shortness of breath or wheezing) Qty: 8.5 0RF Print Language: Macedonian Instructions: Emphysema (ED), Hypertension (ED) Additional Instructions: Your blood pressure and blood sugar are high today, you need to have these rechecked with your doctor Please take the antibiotics prescribed for your toe and continue dressing changes Referrals: SERG DUENAS [Primary Care Provider] - 1 week Discharge Date/Time: 01/24/25 17:20 Documented by User: Abiodun Crum MD 01/24/25 20:41 HPI HPI - General Adult General Chief complaint: Shortness of Breath/Dyspnea Stated complaint: SOB Time Seen by Provider: 01/24/25 15:05 Related Data Home Medications ?Medication ?Instructions ?Recorded ?Confirmed albuterol sulfate 90 mcg/actuation 2 inh inhalation Q6H PRN shortness 03/13/24 01/02/25 aerosol inhaler of breath or wheezing Previous Rx's ?Medication ?Instructions ?Recorded losartan 100 mg tablet 100 mg PO DAILY #30 tabs 12/27/23 prednisone 20 mg tablet See Rx Instructions .Route 09/21/24 .COMPLEX #12 tabs albuterol sulfate 2.5 mg/0.5 mL 2.5 mg (0.5 mL) inhalation Q4H PRN 10/02/24 solution for nebulization shortness of breath or wheezing #30 ea hydrocodone 5 mg-acetaminophen 325 1 tab PO Q4H PRN pain #10 tabs 11/11/24 mg tablet ketorolac 10 mg tablet 10 mg PO Q8H PRN pain 1 day #10 11/11/24 tabs metformin 500 mg tablet 500 mg PO BID #30 tabs 11/11/24 ondansetron 4 mg disintegrating 4 mg PO Q4H PRN nausea and 11/11/24 tablet vomiting 3 days #6 tabs tamsulosin 0.4 mg capsule (Flomax) 0.4 mg PO DAILY 7 days #7 caps 11/11/24 tamsulosin 0.4 mg capsule (Flomax) 0.4 mg PO DAILY #14 caps 11/12/24 ipratropium 0.5 mg-albuterol 3 mg 3 ml inhalation Q4H PRN shortness 12/10/24 (2.5 mg base)/3 mL nebulization of breath #90 mL soln albuterol sulfate 2.5 mg/3 mL 2.5 mg (3 mL) inhalation Q6H PRN 12/24/24 (0.083 %) solution for nebulization shortness of breath or wheezing #90 mL losartan 100 mg tablet (Cozaar) 100 mg PO DAILY #30 tabs 12/24/24 dicyclomine 10 mg capsule 10 mg PO QID PRN abdominal pain 12/28/24 #20 caps ondansetron 4 mg disintegrating 4 mg PO Q6H PRN nausea and 12/28/24 tablet vomiting #20 tabs albuterol sulfate 90 mcg/actuation 2 inh inhalation QID PRN shortness 01/02/25 aerosol inhaler of breath or wheezing #8.5 grams losartan 100 mg tablet 100 mg PO DAILY #10 tabs 01/02/25 meloxicam 7.5 mg tablet 7.5 mg PO DAILY PRN pain #10 tabs 01/02/25 oxycodone-acetaminophen 5 mg-325 1 tab PO Q12H PRN pain 3 days #6 01/02/25 mg tablet (Percocet) tabs tamsulosin 0.4 mg capsule (Flomax) 0.4 mg PO DAILY #10 caps 01/02/25 albuterol sulfate 2.5 mg/3 mL 2.5 mg (3 mL) inhalation Q6H PRN 01/24/25 (0.083 %) solution for nebulization shortness of breath or wheezing #90 mL losartan 100 mg tablet 100 mg PO DAILY #30 tabs 01/24/25 metformin 500 mg tablet 500 mg PO BID #20 tabs 01/24/25 Allergies Allergy/AdvReac Type Severity Reaction Status Date / Time No Known Drug Allergies Allergy Verified 01/19/25 21:49 Opioid HPI Opioid Management Most Recent Opioid Data: Last Pain Scale 6 01/02/25 11:08 01/02/25 Last ORT Total Score 0 01/29/24 06:36 01/29/24 Last ORT Risk Category Low Risk 01/29/24 06:36 01/29/24 [facility] Medical History (Updated 01/24/25 @ 16:57 by PALMIRA Pederson) Hypokalemia ?E87.6 - Hypokalemia (ICD-10) New onset type 2 diabetes mellitus ?E11.9 - Type 2 diabetes mellitus without complications (ICD-10) Lower extremity edema ?R60.0 - Localized edema (ICD-10) Edema ?R60.9 - Edema, unspecified (ICD-10) Acute hyperglycemia ?R73.9 - Hyperglycemia, unspecified (ICD-10) Tobacco abuse ?Z72.0 - Tobacco use (ICD-10) HTN (hypertension) ?I10 - Essential (primary) hypertension (ICD-10) Community acquired pneumonia ?J18.9 - Pneumonia, unspecified organism (ICD-10) Chronic obstructive pulmonary disease ?J44.9 - Chronic obstructive pulmonary disease, unspecified (ICD-10) Acute exacerbation of chronic obstructive pulmonary disease (COPD) ?J44.1 - Chronic obstructive pulmonary disease with (acute) exacerbation (ICD-10) RLL pneumonia ?J18.9 - Pneumonia, unspecified organism (ICD-10) COPD (chronic obstructive pulmonary disease) ?J44.9 - Chronic obstructive pulmonary disease, unspecified (ICD-10) Surgical History (Updated 01/29/24 @ 06:45 by Latonia Martin RN) Hx of tonsillectomy ?Z90.89 - Acquired absence of other organs (ICD-10) Family History (Updated 12/25/23 @ 21:28 by Kym Ordaz) Mother Family history of cancer Family history of hypertension Father Family history of cancer Social History Within the past year, how often did you have a drink containing alcohol: 4 or more times a week Within the past year, how many standard drinks containing alcohol did you have on a typical day: 3 or 4 Within the past year, how often did you have six or more drinks on one occasion: less than monthly Total score: 3 Score interpretation: A score of 4 or more indicates drinking is likely to affect patient's safety. Smoking status: Current every day smoker Non-prescribed substance use: cannabis (any form) Previous occupational history: retired Highest level of school completed/degree received: high school graduate Are you now , , , , never or living with a partner: In a typical week, how many times do you talk on the telephone with family, friends, or neighbors: twice per week How often do you get together with friends or relatives: once per week How often do you attend pentecostalism or zoroastrianism services: never Do you belong to any clubs or organizations such as pentecostalism groups unions, fraternal or athletic groups, or school groups: no Total score: 1 Score interpretation: A score of less than or equal to 1 indicates the most socially isolated. Little interest or pleasure in doing things: not at all Feeling down, depressed, or hopeless: not at all Feel stressed/tense/nervous/anxious/difficulty sleeping: not at all Do you think of yourself as: straight/heterosexual Gender Identity: male Exam Constitutional Vital Signs, click to edit/add: Last Vital Signs Temp 98.4 F 01/24/25 14:29 Pulse 70 01/24/25 16:35 Resp 20 01/24/25 16:35 BP 196/87 H 01/24/25 16:35 Pulse Ox 96 01/24/25 16:35 O2 Del Method Room Air 01/24/25 16:35 Course Vital Signs Vital signs: Vital Signs Temperature 98.4 F 01/24/25 14:29 Pulse Rate 90 01/24/25 14:29 Respiratory Rate 20 01/24/25 14:29 Blood Pressure 200/100 H 01/24/25 14:29 Pulse Oximetry 95 01/24/25 14:29 Oxygen Delivery Method Room Air 01/24/25 14:29 Temperature 98.4 F 01/24/25 14:29 Pulse Rate 70 01/24/25 16:35 Respiratory Rate 20 01/24/25 16:35 Blood Pressure 196/87 H 01/24/25 16:35 Pulse Oximetry 96 01/24/25 16:35 Oxygen Delivery Method Room Air 01/24/25 16:35 Medical Decision Making MDM Narrative Medical decision making narrative: This patient has a history of long-term medication noncompliance. He has been placed on metformin and losartan from this emergency department previously due to uncontrolled blood sugars and blood pressure. He was given a breathing treatment in the ER, labs are grossly stable aside from elevated blood sugar. Blood pressure improved some on recheck, patient has no complaints of chest pain, headache. He was given albuterol breathing treatments for home with a refill of losartan and metformin. He was instructed to follow closely with his primary care provider for reevaluation of his blood pressure and his blood sugar. Return to the emergency department if symptoms change or worsen SUPERVISED APC VISIT, PHYSICIAN ATTESTATION: Based on the medical record the care appears appropriate. I, Dr Crum, have reviewed the above progress note and course of action in the ER; agree with the above. I have personally gone over history and physical, and discussed disposition and treatment plan with the PA. Lab Data Labs: Lab Results 01/24/25 01/24/25 Range/Units 15:54 16:15 WBC 8.6 (4.0-11.0) 10^3/uL RBC 4.62 L (4.70-6.10) 10^6/uL Hgb 13.9 L (14.0-18.0) g/dL Hct 40.9 L (42.0-54.0) % MCV 88.5 (80.0-94.0) fL MCH 30.1 (25.9-34.0) pg MCHC 34.0 (29.9-35.2) g/dL RDW 13.2 (11.0-15.0) % Plt Count 203 (150-450) 10^3/uL MPV 9.1 L (9.5-13.5) fL Neut % (Auto) 73.3 (43.0-75.0) % Lymph % (Auto) 18.7 L (20.5-60.0) % Daggett % (Auto) 6.3 (1.7-12.0) % Eos % (Auto) 1.3 (0.9-7.0) % Baso % (Auto) 0.2 (0.2-2.0) % Neut # (Auto) 6.3 (1.4-6.5) 10^3/uL Lymph # (Auto) 1.6 (1.2-3.8) 10^3/uL [place]gett # (Auto) 0.5 (0.3-0.8) 10^3/uL Eos # (Auto) 0.1 (0.0-0.7) 10^3/uL Baso # (Auto) 0.0 (0.0-0.1) 10^3/uL Abs Immat Gran (auto) 0.02 (0.00-0.03) 10^3/uL Imm/Tot Granulo (auto) 0.2 (0.0-0.5) % VBG pH 7.412 (7.330-7.430) VBG pCO2 46.3 (40.0-52.0) mmHg Sodium 135 L (136-145) mmol/L Potassium 4.5 (3.5-5.1) mmol/L Chloride 102 (98-107) mmol/L Carbon Dioxide 30.4 (21.0-32.0) mmol/L Anion Gap 7.1 BUN 8.0 (7.0-18.0) mg/dL Creatinine 0.85 (0.70-1.30) mg/dL Est GFR ( Amer) >60 (>=60 mL/min/1.73m^2) Est GFR (Non-Af Amer) >60 (>=60 mL/min/1.73m^2) BUN/Creatinine Ratio 9.4 Glucose 437 H (74-106) mg/dL Calcium 9.1 (8.5-10.1) mg/dL Total Bilirubin 0.2 (0.2-1.0) mg/dL AST 30 (15-37) U/L ALT 50 (16-63) U/L Alkaline Phosphatase 109 (46-116) U/L Troponin I High Sens 16.7 (4.0-76.1) pg/mL NT-Pro-B Natriuret Pep 372.0 (<=900.0) pg/mL Total Protein 6.4 (6.4-8.2) g/dL Albumin 3.7 (3.4-5.0) g/dL Globulin 2.7 g/dL Albumin/Globulin Ratio 1.4 Discharge Plan Discharge Chief Complaint: Shortness of Breath/Dyspnea Clinical Impression: Shortness of breath, Hypertension, Hyperglycemia, Encounter for wound care Patient Disposition: Home, Self-Care Time of Disposition Decision: 16:57 Condition: Good Prescriptions / Home Meds: New metformin 500 mg tablet 500 mg PO BID Qty: 20 0RF losartan 100 mg tablet 100 mg PO DAILY Qty: 30 0RF albuterol sulfate 2.5 mg /3 mL (0.083 %) solution for nebulization 2.5 mg inhalation Q6H PRN (Reason: shortness of breath or wheezing) Qty: 90 0RF No Action losartan 100 mg tablet 100 mg PO DAILY Qty: 30 11RF albuterol sulfate 90 mcg/actuation HFA aerosol inhaler 2 inh inhalation Q6H PRN (Reason: shortness of breath or wheezing) prednisone 20 mg tablet See Rx Instructions .ROUTE .COMPLEX Qty: 12 0RF Rx Instructions: 3 tabs daily for 2 days, then 2 tabs daily for 2 days, then 1 tab daily for 2 days albuterol sulfate 2.5 mg/0.5 mL solution for nebulization 2.5 mg inhalation Q4H PRN (Reason: shortness of breath or wheezing) Qty: 30 2RF dicyclomine 10 mg capsule 10 mg PO QID PRN (Reason: abdominal pain) Qty: 20 0RF ondansetron 4 mg tablet,disintegrating 4 mg PO Q6H PRN (Reason: nausea and vomiting) Qty: 20 0RF hydrocodone-acetaminophen 5-325 mg tablet 1 tab PO Q4H PRN (Reason: pain) Qty: 10 0RF ketorolac 10 mg tablet 10 mg PO Q8H PRN (Reason: pain) 1 Days Qty: 10 0RF tamsulosin [Flomax] 0.4 mg capsule 0.4 mg PO DAILY 7 Days Qty: 7 0RF ondansetron 4 mg tablet,disintegrating 4 mg PO Q4H PRN (Reason: nausea and vomiting) 3 Days Qty: 6 0RF metformin 500 mg tablet 500 mg PO BID Qty: 30 0RF tamsulosin [Flomax] 0.4 mg capsule 0.4 mg PO DAILY Qty: 14 0RF ipratropium-albuterol 0.5 mg-3 mg(2.5 mg base)/3 mL solution for nebulization 3 ml inhalation Q4H PRN (Reason: shortness of breath) Qty: 90 0RF Rx Instructions: until breathing returns to target peak flow/parameters losartan [Cozaar] 100 mg tablet 100 mg PO DAILY Qty: 30 0RF albuterol sulfate 2.5 mg /3 mL (0.083 %) solution for nebulization 2.5 mg inhalation Q6H PRN (Reason: shortness of breath or wheezing) Qty: 90 1RF losartan 100 mg tablet 100 mg PO DAILY Qty: 10 0RF tamsulosin [Flomax] 0.4 mg capsule 0.4 mg PO DAILY Qty: 10 0RF meloxicam 7.5 mg tablet 7.5 mg PO DAILY PRN (Reason: pain) Qty: 10 0RF oxycodone-acetaminophen [Percocet] 5-325 mg tablet 1 tab PO Q12H PRN (Reason: pain) 3 Days Qty: 6 0RF albuterol sulfate 90 mcg/actuation HFA aerosol inhaler 2 inh inhalation QID PRN (Reason: shortness of breath or wheezing) Qty: 8.5 0RF Print Language: Macedonian Instructions: Emphysema (ED), Hypertension (ED) Additional Instructions: Your blood pressure and blood sugar are high today, you need to have these rechecked with your doctor Please take the antibiotics prescribed for your toe and continue dressing changes Referrals: SERG DUENAS [Primary Care Provider] - 1 week Discharge Date/Time: 01/24/25 17:20
[2025-01-24] MEDS: IPRATROPIUM/ALBUTEROL SULFATE 3 ML AMPUL.NEB IH (15:27)
[2025-01-24 16:02] LABS: PCO2 VBG 46.3 mmHg (40.0-52.0); pH VBG 7.412 (7.330-7.430)
[2025-01-24 16:18] LABS: Anion Gap 7.1
[2025-01-24 16:21] LABS: Basophils Percent Auto 0.2 % (0.2-2.0); Eosinophils Absolute Auto 0.1 10^3/uL (0.0-0.7); Eosinophils Percent Auto 1.3 % (0.9-7.0); Hematocrit 40.9 % (42.0-54.0); Hemoglobin 13.9 g/dL (14.0-18.0); Immature Granulocytes Abs Auto 0.02 10^3/uL (0.00-0.03); Immature Granulocytes Pct Auto 0.2 % (0.0-0.5); Lymphocytes Absolute Auto 1.6 10^3/uL (1.2-3.8); Lymphocytes Percent Auto 18.7 % (20.5-60.0); Mean Corpuscular Hemoglobin 30.1 pg (25.9-34.0); Mean Corpuscular Volume 88.5 fL (80.0-94.0); Mean Platelet Volume 9.1 fL (9.5-13.5); Monocytes Absolute Auto 0.5 10^3/uL (0.3-0.8); Monocytes Percent Auto 6.3 % (1.7-12.0); Neutrophils Absolute Auto 6.3 10^3/uL (1.4-6.5); Neutrophils Percent Auto 73.3 % (43.0-75.0); Platelet Count 203 10^3/uL (150-450); Red Blood Count 4.62 10^6/uL (4.70-6.10); Red Cell Distribution Width 13.2 % (11.0-15.0); White Blood Count 8.6 10^3/uL (4.0-11.0)
[2025-01-24 16:25] LABS: Alanine Aminotransferase 50 U/L (16-63); Albumin Globulin Ratio 1.4; Albumin Level 3.7 g/dL (3.4-5.0); Alkaline Phosphatase 109 U/L (46-116); Aspartate Amino Transferase 30 U/L (15-37); BUN Creatinine Ratio 9.4; Bilirubin Total 0.2 mg/dL (0.2-1.0); Calcium 9.1 mg/dL (8.5-10.1); Carbon Dioxide 30.4 mmol/L (21.0-32.0); Chloride 102 mmol/L (98-107); Estimated GFR (African America >60 (>=60 mL/min/1.73m^2); Estimated GFR (Non-African Ame >60 (>=60 mL/min/1.73m^2); Globulin 2.7 g/dL; Glucose 437 mg/dL (74-106); Potassium 4.5 mmol/L (3.5-5.1); Sodium 135 mmol/L (136-145); Total Protein 6.4 g/dL (6.4-8.2); Troponin I High Sensitivity 16.7 pg/mL (4.0-76.1)
[2025-01-24 16:35] VITALS: BP 196/87; PULSE 70; O2SAT 96
== END 2025-01-24 17:20 | disposition home or self-care (01) ==
PROVIDERS: Physician Assistant; Emergency Provider Emergency Medicine
DX: R06.02 Shortness of breath (principal); J44.9 Chronic obstructive pulmonary disease, unspecified; F17.200 Nicotine dependence, unspecified, uncomplicated; Z79.84 Long term (current) use of oral hypoglycemic drugs; Z79.899 Other long term (current) drug therapy; I10 Essential (primary) hypertension; R73.9 Hyperglycemia, unspecified; Z48.00 Encounter for change or removal of nonsurgical wound dressing
CPT/HCPCS: 36415; 71045; 80053; 82800; 83880; 84484; 85025; 93005; 99285

== ENCOUNTER 2025-01-27 16:57 | Emergency (ER) | payer MEDICARE, SELFPAY ==
[2025-01-27 17:02] VITALS: BP 189/100; PULSE 84; TEMP 36.8; O2SAT 96; BMI 25.1
--- OUTSIDE RECORDS SUMMARY | 2025-01-27 17:06 | XMS_ITS | CCD ---
Author Organization [facility] CliniSymo Care Team Providers Care Senior Counsel Name Role Phone REQUEST, DR NONE LISTED [...] 03-27-2023 Episodic Other aftercare (1 source) Other m[facility] (current) drug therapy; Translations: [OTH FPC CURRENT [...] #### C BC ####[facility] [address] [place] [address]Dr. Garima Pulliam Basophils/100 WBC (Bld) 0.3 % Normal 0.2-2.0 [facility] Comment on above: Performed By: #### C BC ####[facility] Ybnqvldmug07[address] [place] [address]DrAdalberto Pulliam EO # 0.3 103/ul Normal 0.0-0.7 [facility] Comment on above: Performed By: #### C BC ####[facility] Twsytlffxt[address] [place], [place] [address]Dr. Garima Pulliam Eosinophils/100 WBC (Bld) 2.8 % Normal 0.9-7.0 [facility] Comment on above: Performed By: #### C BC ####[facility] Lmltqfhsbw80[address] [place] [address]Dr. Garima Pulliam Erythrocyte distribution width (RBC) [Ratio] 13.4 % Normal 11.0-15.0 [facility] Comment on above: Performed By: #### C BC ####[facility] Wcyavwpcwz7[address] [place] [address]Dr. Garima Pulliam Hematocrit (Bld) [Volume fraction] 45.7 % Normal 42.0-54.0 [facility] Comment on above: Performed By: #### C BC ####[facility] Vtqnrncfnc6[address] [place] [address]Dr. Garima Pulliam Hemoglobin (Bld) [Mass/Vol] 15.2 g/dL Normal 14.0-18.0 [facility] Comment on above: Performed By: #### C BC ####[facility] Gcpttupxpf8[address] [place] [address]Dr. Garima Pulliam IG # 0.02 10e3/ul Normal 0.00-0.03 [facility] Comment on above: Performed By: #### C BC ####[facility] Fhlpzfmnvh85[address] [place] [address]Dr. Garima Pulliam IG % 0.2 % Normal 0.0-0.5 [facility] Comment on above: Performed By: #### C BC ####[facility] Cxbzivsqna8203 [place] [address]Dr. Garima Pulliam LYMPH # 2.1 103/ul Normal 1.2-3.8 [facility] Comment on above: Performed By: #### C BC ####[facility] Yvartfdklb2901 [place] [address]Dr. Garima Pulliam Lymphocytes/100 WBC (Bld) 23.7 % Normal 20.5-60.0 [facility] Comment on above: Performed By: #### C BC ####[facility] Aorshbmtmt33[address] [place] [address]Dr. Garima Heraclio MANUAL DIFF REQ NO Normal [facility] Comment on above: Performed By: #### C BC ####[facility] Rbtrbkslgr9113 [place] [address]Dr. Garima Pulliam MCH (RBC) [Entitic mass] 30.4 pg Normal 25.9-34.0 [facility] Comment on above: Performed By: #### C BC ####[facility] Rfxlzsghut0916 [place] [address]Dr. Garima Heraclio MCHC (RBC) [Mass/Vol] 33.3 g/dL Normal 29.9-35.2 [facility] Comment on above: Performed By: #### C BC ####[facility] Ztjcprangr[address] [place], [place] [address]Dr. Chapisrenu Pulliam MCV (RBC) [Entitic vol] 91.4 fL Normal 80.0-94.0 [facility] Comment on above: Performed By: #### C BC ####[facility] Uoioclbcpc[address] [place], [place] [address]Dr. Garima Heraclio MONO # 0.7 103/ul Normal 0.3-0.8 [facility] Comment on above: Performed By: #### C BC ####[facility] Phkafwtaqo[address] [place], [place] [address]Dr. Chapisrenu Pulliam Monocytes/100 WBC (Bld) 8.3 % Normal 1.7-12.0 [facility] Comment on above: Performed By: #### C BC ####[facility] Yhytjpltgp0894 [place] [address]Dr. Chapisrenu Heraclio NEUT # 5.8 103/ul Normal 1.4-6.5 [facility] Comment on above: Performed By: #### C BC ####[facility] Sjyeiuzwjz[address] [place], [place] [address]Dr. Garima Pulliam Neutrophils/100 WBC (Bld) 64.7 % Normal 43.0-75.0 [facility] Comment on above: Performed By: #### C BC ####[facility] Tkyituqrui[address] [place] [address]Dr. Garima Pulliam Platelet mean volume (Bld) [Entitic vol] 8.6 fL Critically low 9.5-13.5 [facility] Comment on above: Performed By: #### C BC ####[facility] Fdnukqekgj5192 [place] [address]Dr. Garima Pulliam PLT 230 103/ul Normal 150-450 [facility] Comment on above: Performed By: #### C BC ####[facility] Cfbpvqeytl2217 [place] [address]Dr. Chapisrenu Heraclio RBC 5.00 106/ul Normal 4.70-6.10 [facility] Comment on above: Performed By: #### C BC ####[facility] Gumhfsrtii7[address] [place] [address]Dr. Garima Heraclio WBC 9.0 103/ul Normal 4.0-11.0 [facility] Comment on above: Performed By: #### C BC ####[facility] Ctdjpcjopk9301 [place] [address]Dr. Garima Pulliam MAGNESIUMon 04-04-2023 Magnesium [Mass/Vol] 1.8 mg/dL Normal 1.8-2.4 [facility] Comment on above: Performed By: #### M G ####[facility] Wihjlzrfgs9059 [place] [address]Dr. Chapisrenu Pulliam PROF 14(COMP METB)on 023 Albumin [Mass/Vol] 3.8 g/dL Normal 3.4-5.0 [facility] Comment on above: Performed By: #### C MP ####[facility] Lxglwvncnr6446 [place] [address]Dr. Garima Pulliam Albumin/Globulin [Mass ratio] 1.2 {ratio} Normal [facility] Comment on above: Performed By: #### C MP ####[facility] Cfngpwuwia7991 [place] [address]Dr. Garima Heraclio ALP [Catalytic activity/Vol] 84 U/L Normal 46-116 [facility] Comment on above: Performed By: #### C MP ####[facility] Uvwpryxcfr0457 [place] [id number]. Garima Pulliam ALT [Catalytic activity/Vol] 31 U/L Normal 16-63 [facility] Comment on above: Performed By: #### C MP ####[facility] Cxpgcvvoix7749 [place] [address]Dr. Garima Pulliam Anion gap [Moles/Vol] 12.2 mmol/L Normal [facility] Comment on above: Performed By: #### C MP ####[facility] Odzdvugagr6318 [place] [address]Dr. Garima Pulliam AST [Catalytic activity/Vol] 23 U/L Normal 15-37 [facility] Comment on above: Performed By: #### C MP ####[facility] Kddymlvhnv[address] [place], [place] [address]Dr. Garima Pulliam Bilirubin [Mass/Vol] 0.5 mg/dL Normal 0.2-1.0 [facility] Comment on above: Performed By: #### C MP ####[facility] Uwmyltnedl7[address] [place], [place] [address]Dr. Garima Pulliam Calcium [Mass/Vol] 9.2 mg/dL Normal 8.5-10.1 [facility] Comment on above: Performed By: #### C MP ####[facility] Lzgeamfock13[address] [place], [place] [address]Dr. Garima Pulliam Chloride [Moles/Vol] 103 mmol/L Normal 98-107 [facility] Comment on above: Performed By: #### C MP ####[facility] Eoqzpuxalm9408 [place] [address]Dr. Garima Pulliam CO2 [Moles/Vol] 28.5 mmol/L Normal 21.0-32.0 [facility] Comment on above: Performed By: #### C MP ####[facility] Btmtixjpsy55[address] [place], [place] [address]Dr. Garima Pulliam Creatinine [Mass/Vol] 0.74 mg/dL Normal 0.70-1.30 [facility] Comment on above: Performed By: #### C MP ####[facility] Hbuusoclqq5933 [place] [id number]. Garima Pulliam EGFR-AF ANGOLAN >60 Normal >=60 [facility] Comment on above: Performed By: #### C MP ####[facility] Mvpmwsdmfo8128 [place] [address]Dr. Garima Heraclio EGFR-NON AF ANGOLAN >60 Normal >=60 [facility] Comment on above: Performed By: #### C MP ####[facility] Fxpddgkqzf0327 [place] [id number]. Garima Heraclio Globulin (S) [Mass/Vol] 3.1 g/dL Normal [facility] Comment on above: Performed By: #### C MP ####[facility] Qvgnawempq80[address] [place], [place] [address]Dr. Garima Heraclio Glucose [Mass/Vol] 93 mg/dL Normal 74-106 [facility] [place] Comment on above: Performed By: #### C MP ####[facility] Fxiiptmqpd97[address] [place], [place] [address]Dr. Garima Heraclio Potassium [Moles/Vol] 3.7 mmol/L Normal 3.5-5.1 [facility] Comment on above: Performed By: #### C MP ####[facility] Nmjsqstcbx[address] [place], [place] [address]Dr. Garima Heraclio Protein [Mass/Vol] 6.9 g/dL Normal 6.4-8.2 [facility] Comment on above: Performed By: #### C MP ####[facility] Wivcnqpkzt[address] [place], [place] [address]Dr. Garima Heraclio Sodium [Moles/Vol] 140 mmol/L Normal 136-145 [facility] Comment on above: Performed By: #### C MP ####[facility] Uxerblrrdi215[address] [place], [place] [address]Dr. Garima Pulliam Urea nitrogen [Mass/Vol] 8.0 mg/dL Normal 7.0-18.0 [facility] Comment on above: Performed By: #### C MP ####[facility] Aemveoyymi079[address] [place], [place] [address]Dr. Garima Pulliam Urea nitrogen/Creatinine [Mass ratio] 10.8 mg/mg Normal [facility] Comment on above: Performed By: #### C DAVID ####[facility] Mazyruicay[address] [place] [address]Dr. Garima Pulliam AMMONIAon 03-30-2023 Ammonia (P) [Moles/Vol] 11 umol/L Normal 11-32 [facility] Comment on above: Performed By: #### A MM ####[facility] Qxfajdjcwv64[address] [place], [place] [address]Dr. Garima Pulliam CARDIAC NASH ADMITon 023 CK [Catalytic activity/Vol] 232 U/L Normal 39-308 [facility] Comment on above: Performed By: #### C NANCY HERNANDEZ ####[facility] Texmtvkoqq4[address] [place] [address]Dr. Chapisrenu Pulliam CK.MB [Mass/Vol] 4.83 ng/mL Critically high <=3.60 [facility] Comment on above: Performed By: #### C NANCY HERNANDEZ ####[facility] Wqctwvplut[address] [place], [place] [address]Dr. Garima Pulliam HSTROP 10.5 pg/mL Normal 4.0-76.1 [...] C NANCY HERNANDEZ ####[facility] Iufxhacvmn150[address] [place], [place] [address]Dr. Garima Heraclio DORIS 79 ng/mL Normal 16-96 [facility] Comment on above: Performed By: #### C NANCY HERNANDEZ ####[facility] Yycxqicmdp[address] [place], [place] [address]Dr. Garima Heraclio CBC AUTO DIFFon 03-30-2023 BASO # 0.0 103/ul Normal 0.0-0.1 [facility] Comment on above: Performed By: #### C BC ####[facility] Tmdalzaudv4114 [place] [id number]. Garima Pulliam Basophils/100 WBC (Bld) 0.1 % Critically low 0.2-2.0 [facility] Comment on above: Performed By: #### C BC ####[facility] Adlizawiuc0395 [place] [phone]. Garima Pulliam EO # 0.3 103/ul Normal 0.0-0.7 [facility] Comment on above: Performed By: #### C BC ####[facility] Xqqfbvqubm[address] [place], [place] [address]Dr. Garima Pulliam Eosinophils/100 WBC (Bld) 3.3 % Normal 0.9-7.0 [facility] Comment on above: Performed By: #### C BC ####[facility] Knboouansg[address] [place], [place] [address]Dr. Garima Pulliam Erythrocyte distribution width (RBC) [Ratio] 13.5 % Normal 11.0-15.0 [facility] Comment on above: Performed By: #### C BC ####[facility] Uojyszhwsh[address] [place], [place] [address]Dr. Garima Pulliam Hematocrit (Bld) [Volume fraction] 42.9 % Normal 42.0-54.0 [facility] Comment on above: Performed By: #### C BC ####[facility] Kdeeuxswwl[address] [place], [place] [address]Dr. Garima Pulliam Hemoglobin (Bld) [Mass/Vol] 13.9 g/dL Critically low 14.0-18.0 [facility] Comment on above: Performed By: #### C BC ####[facility] Lcyfpkiays1623 [place] [id number]. Garima Pulliam IG # 0.01 10e3/ul Normal 0.00-0.03 [facility] Comment on above: Performed By: #### C BC ####[facility] Cnesfmffed[address] [place], [place] [address]Dr. Garima Pulliam IG % 0.1 % Normal 0.0-0.5 [facility] Comment on above: Performed By: #### C BC ####[facility] Ernyeoubah1659 [place] [phone]. Garima Pulliam LYMPH # 1.7 103/ul Normal 1.2-3.8 [facility] Comment on above: Performed By: #### C BC ####[facility] Enuoztlaca7343 [place], [place] [address]Iv. Garima Pulliam Lymphocytes/100 WBC (Bld) 22.8 % Normal 20.5-60.0 [facility] Comment on above: Performed By: #### C BC ####[facility] Wirvgivlwu4626 [place] [phone]. Garima Heraclio MANUAL DIFF REQ NO Normal [facility] Comment on above: Performed By: #### C BC ####[facility] Yjvsqdyvcl7822 [place] [phone]. Garima Heraclio MCH (RBC) [Entitic mass] 30.5 pg Normal 25.9-34.0 [facility] Comment on above: Performed By: #### C BC ####[facility] Mhkjdqikep5256 [place] [phone]. Garima Pulliam MCHC (RBC) [Mass/Vol] 32.4 g/dL Normal 29.9-35.2 [facility] Comment on above: Performed By: #### C BC ####[facility] Elleyiafob2569 [place] [phone]. Garima Heraclio MCV (RBC) [Entitic vol] 94.1 fL Critically high 80.0-94.0 [facility] Comment on above: Performed By: #### C BC ####[facility] Fsupvbhcwp0928 [place] [phone]. Garima Heraclio MONO # 0.7 103/ul Normal 0.3-0.8 [facility] Comment on above: Performed By: #### C BC ####[facility] Ceddfwmgfw8218 [place] [phone]. Garima Heraclio Monocytes/100 WBC (Bld) 8.6 % Normal 1.7-12.0 [facility] Comment on above: Performed By: #### C BC ####[facility] Banornkdkl1585 [place] [phone]. Garima Pulliam NEUT # 4.9 103/ul Normal 1.4-6.5 [facility] Comment on above: Performed By: #### C BC ####[facility] Ahaextbagz5845 [place] [phone]. Garima Pulliam Neutrophils/100 WBC (Bld) 65.1 % Normal 43.0-75.0 [facility] Comment on above: Performed By: #### C BC ####[facility] Uifcdqwmuk9031 [place] [phone]. Garima Pulliam Platelet mean volume (Bld) [Entitic vol] 8.5 fL Critically low 9.5-13.5 [facility] Comment on above: Performed By: #### C BC ####[facility] Ghwtrzvnaj6431 [place] [phone]. Garima Pulliam PLT 219 103/ul Normal 150-450 [facility] Comment on above: Performed By: #### C BC ####[facility] Rqihoeisvy7734 [place] [phone]. Garima Pulliam RBC 4.56 106/ul Critically low 4.70-6.10 [facility] Comment on above: Performed By: #### C BC ####[facility] Ngyeocrjne9168 [place] [phone]. Garima Pulliam WBC 7.6 103/ul Normal 4.0-11.0 [facility] Comment on above: Performed By: #### C BC ####[facility] Tdrikccwnz6282 [place] [phone]. Garima Pulliam LACTATE/LACTIC ACIDon 2022 Lactate [Moles/Vol] 1.2 mmol/L Normal 0.4-2.0 [facility] Comment on above: Performed By: #### L ACT ####[facility] Xgpidgwuqd6626 [place] [phone]. Garima Pulliam MAGNESIUMon 03-30-2023 Magnesium [Mass/Vol] 1.8 mg/dL Normal 1.8-2.4 [facility] Comment on above: Performed By: #### M G ####[facility] Wdipasccbr7306 [place] [address]Dr. Garima Pulliam PROF 14(COMP METB)on 023 Albumin [Mass/Vol] 3.5 g/dL Normal 3.4-5.0 [facility] Comment on above: Performed By: #### C DAVID, CMAANA ROSA ####[facility] Tqlsqwoxhu2311 [place] [address]Dr. Garima Pulliam Albumin/Globulin [Mass ratio] 1.2 {ratio} Normal [facility] Comment on above: Performed By: #### C DAVID, CMAANA ROSA ####[facility] Vrnmigocfm3063 [place] [address]Dr. Garima Pulliam ALP [Catalytic activity/Vol] 85 U/L Normal 46-116 [facility] Comment on above: Performed By: #### C DAVID, CMAANA ROSA ####[facility] Esgjcnnnqw[address] [place], [place] [address]Dr. Garima Pulliam ALT [Catalytic activity/Vol] 29 U/L Normal 16-63 [facility] Comment on above: Performed By: #### C DAVID, CMAANA ROSA ####[facility] Aigigffoov9949 [place] [address]Dr. Garima Pulliam Anion gap [Moles/Vol] 8.0 mmol/L Normal [facility] Comment on above: Performed By: #### C DAVID, CMAANA ROSA ####[facility] Qjlatovfdw9098 [place] [address]Dr. Garima Pulliam AST [Catalytic activity/Vol] 18 U/L Normal 15-37 [facility] Comment on above: Performed By: #### C DAVID, CMADM ####[facility] Hhczohxcaa4429 [place] [address]Dr. Garima Pulliam Bilirubin [Mass/Vol] 0.4 mg/dL Normal 0.2-1.0 [facility] Comment on above: Performed By: #### C DAVID, CMADM ####[facility] Zystlkndwo8953 [place] [address]Dr. Garima Pulliam Calcium [Mass/Vol] 8.8 mg/dL Normal 8.5-10.1 [facility] Comment on above: Performed By: #### C DAVID, NANCY ####[facility] Qjmneieteh0598 [place] [address]Dr. Chapisrenu Pulliam Chloride [Moles/Vol] 108 mmol/L Critically high 98-107 [facility] Comment on above: Performed By: #### C DAVID, NANCY ####[facility] Gmzwfgefqu8092 [place] [address]Dr. Garima Pulliam CO2 [Moles/Vol] 29.6 mmol/L Normal 21.0-32.0 [facility] Comment on above: Performed By: #### C NANCY HERNANDEZ ####[facility] Czagqlmixp[address] [place], [place] [address]Dr. Garima Pulliam Creatinine [Mass/Vol] 0.77 mg/dL Normal 0.70-1.30 [facility] Comment on above: Performed By: #### C NANCY HERNANDEZ ####[facility] Vitxawoxoh[address] [place], [place] [address]Dr. Garima Heraclio EGFR-AF ANGOLAN >60 Normal >=60 [facility] Comment on above: Performed By: #### C NANCY HERNANDEZ ####[facility] Nordxxltlq6[address] [place], [place] [address]Dr. Garima Heraclio EGFR-NON AF ANGOLAN >60 Normal >=60 [facility] Comment on above: Performed By: #### C NANCY HERNANDEZ ####[facility] Uzmqanebih8806 [place] [address]Dr. Garima Pulliam Globulin (S) [Mass/Vol] 2.8 g/dL Normal [facility] Comment on above: Performed By: #### C NANCY HERNANDEZ ####[facility] Jimltjctgz2812 [place] [address]Dr. Garima Pulliam Glucose [Mass/Vol] 207 mg/dL Critically high 74-106 [facility] Comment on above: Performed By: #### C NANCY HERNANDEZ ####[facility] Sqjtrxyfto[address] [place], [place] [address]Dr. Garima Pulliam Potassium [Moles/Vol] 4.6 mmol/L Normal 3.5-5.1 [facility] Comment on above: Performed By: #### C DAVID, NANCY ####[facility] Gpzwkdvhjd8091 [place] [address]Dr. Garima Pulliam Protein [Mass/Vol] 6.3 g/dL Critically low 6.4-8.2 [facility] Comment on above: Performed By: #### C DAVID, NANCY ####[facility] Fnbyxslylh0038 [place] [address]Dr. Garima Pulliam Sodium [Moles/Vol] 141 mmol/L Normal 136-145 [facility] Comment on above: Performed By: #### C DAVID, NANCY ####[facility] Lcooueeglf8413 [place] [address]Dr. Garima Pulliam Urea nitrogen [Mass/Vol] 9.0 mg/dL Normal 7.0-18.0 [facility] Comment on above: Performed By: #### C DAVID, NANCY ####[facility] Tyzdrselpb8957 [place] [address]Dr. Garima Pulliam Urea nitrogen/Creatinine [Mass ratio] 11.7 mg/mg Normal [facility] Comment on above: Performed By: #### C DAVID, NANCY ####[facility] Rloemartue6736 [place] [address]Dr. Garima Pulliam XR CHEST 1 Von 03-30-2023 XR CHEST 1 V Normal [facility] BNPon 03-27-2023 Natriuretic peptide B (Bld) [Mass/Vol] 251.0 pg/mL Normal <=900.0 [facility] Comment on above: Performed By: #### C MP, BNP, LIPID ####[facility] Aaamzbppvq3378 [place] [address]Dr. Garima Pulliam GLYCOHEMOGLOBIN A1Con 2022 ADA RECOMMENDATION SEE BELOW Normal [facility] Comment on above: Result Comment: ADA RECOMMENDED LIMIT 4.0 - 6.0 ADA THERAPEUTIC TARGET < 7.0 ACTION SUGGESTED > 7.0 Performed By: #### A 1C ####[facility] Ongtswqifl6599 [place] [address]Dr. Garima Pulliam Glucose [Mass/Vol] 180 mg/dL Normal [facility] Comment on above: Performed By: #### A 1C ####[facility] Jiddlewapv[address] [place], [place] [address]Dr. Chapisrenu Pulliam HbA1c (Bld) [Mass fraction] 7.9 % Critically high 4.5-6.2 [facility] Comment on above: Performed By: #### A 1C ####[facility] Vtiysuaiwz052[address] [place], [place] [address]Dr. Garima Pulliam HEMOGRAM AND PLATELon 2022 Hematocrit (Bld) [Volume fraction] 45.7 % Normal 42.0-54.0 [facility] Comment on above: Performed By: #### H H ####[facility] Czsfahhqsq[address] [place], [place] [address]Dr. Garima Pulliam Hemoglobin (Bld) [Mass/Vol] 15.1 g/dL Normal 14.0-18.0 [facility] Comment on above: Performed By: #### H H ####[facility] Iatotebsfa040[address] [place], [place] [address]Dr. Garima Pulliam MCH (RBC) [Entitic mass] 30.0 pg Normal 25.9-34.0 [facility] Comment on above: Performed By: #### H H ####[facility] Kgcxelvohr[address] [place], [place] [address]Dr. Garima Pulliam MCHC (RBC) [Mass/Vol] 33.0 g/dL Normal 29.9-35.2 [facility] Comment on above: Performed By: #### H H ####[facility] Yfzbhakkig[address] [place], [place] [address]Dr. Garima Pulliam MCV (RBC) [Entitic vol] 90.7 fL Normal 80.0-94.0 [facility] Comment on above: Performed By: #### H H ####[facility] Qlxujxfetb[address] [place], [place] [address]Dr. Garima Pulliam PLT 222 103/ul Normal 150-450 [facility] Comment on above: Performed By: #### H H ####[facility] Ctarwggexc0203 [place] [phone]. Garima Pulliam RBC 5.04 106/ul Normal 4.70-6.10 [facility] Comment on above: Performed By: #### H H ####[facility] Eohhmmpjgp7793 [place] [phone]. Garima Pulliam WBC 8.7 103/ul Normal 4.0-11.0 [facility] Comment on above: Performed By: #### H H ####[facility] Zeffebksre7893 [place] [phone]. Garima Pulliam LIPID PROFILEon 03-27-2023 CHOL-HDL RATIO NORM SEE BELOW Normal [facility] Comment on above: Result Comment: 3.3 - 4.4 LOW RISK 4.4 - 7.1 AVERAGE RISK 7.1 - 11.0 MODERATE RISK >11.0 HIGH RISK Performed By: #### C MP, BNP, LIPID ####[facility] [address]mpyak[address] [place] [address]Dr. Garima Pulliam Cholesterol [Mass/Vol] 113 mg/dL Normal <=200 [facility] Comment on above: Performed By: #### C MP, BNP, LIPID ####[facility] Lvgtsdalms[address] [place] [address]Dr. Garima Pulliam Cholesterol in HDL [Mass/Vol] 51 mg/dL Normal 40-60 [facility] Comment on above: Performed By: #### C MP, BNP, LIPID ####[facility] Kvgavrojwy6[address] [place] [address]Dr. Garima Pulliam Cholesterol in LDL [Mass/Vol] 49.8 mg/dL Normal [facility] Comment on above: Performed By: #### C MP, BNP, LIPID ####[facility] Sfgrarmgmq28[address] [place] [address]Dr. Garima Pulliam Cholesterol.total/Cho lesterol in HDL [Mass ratio] 2.2 {ratio} Normal [facility] Comment on above: Performed By: #### C MP, BNP, LIPID ####[facility] Iuaxorkrhh[address] [place] [address]Dr. Garima Pulliam HDL NORMAL > or = 60 mg/dl - LOW CARDIOVASCULAR RISK <40 mg/dl - HIGH CARDIOVASCULAR RISK Normal [facility] Comment on above: Performed By: #### C MP, BNP, LIPID ####[facility] Msdwpdbuza[address] [place] [address]Dr. Garima Pulliam LDL CALC NORMAL SEE BELOW Normal [facility] Comment on above: Result Comment: <100 mg/dl OPTIMAL 100 - 129 mg/dl NEAR OR ABOVE OPTIMAL 130 - 159 mg/dl BORDERLINE HIGH 160 - 189 mg/dl HIGH >190 mg/dl VERY HIGH Performed By: #### C MP, BNP, LIPID ####[facility] Xtumvvaybh23[address] [place] [address]Dr. Garima Pulliam Triglyceride [Mass/Vol] 61 mg/dL Normal <=150 [facility] Comment on above: Performed By: #### C MP, BNP, LIPID ####[facility] Akcthhbqyj[address] [place] [address]Dr. Garima Pulliam VLDL CALC 12.2 mg/dL Normal [facility] Comment on above: Performed By: #### C MP, BNP, LIPID ####[facility] Thsgwswlzw[address] [place] [address]Dr. Garima Pulliam PROF 14(COMP METB)on 023 Albumin [Mass/Vol] 3.5 g/dL Normal 3.4-5.0 [facility] Comment on above: Performed By: #### C MP, BNP, LIPID ####[facility] Lsiikfbwau[address] [place] [address]Dr. Garima Pulliam Albumin/Globulin [Mass ratio] 1.2 {ratio} Normal [facility] Comment on above: Performed By: #### C MP, BNP, LIPID ####[facility] Fzvobygkml224[address] [place] [address]Dr. Garima Pulliam ALP [Catalytic activity/Vol] 82 U/L Normal 46-116 [facility] Comment on above: Performed By: #### C MP, BNP, LIPID ####[facility] Xuvjirizvx8556 [place] [address]Dr. Garima Pulliam ALT [Catalytic activity/Vol] 33 U/L Normal 16-63 [facility] Comment on above: Performed By: #### C MP, BNP, LIPID ####[facility] Hqgklslxmm0198 [place] [address]Dr. Garima Pulliam Anion gap [Moles/Vol] 9.9 mmol/L Normal [facility] Comment on above: Performed By: #### C MP, BNP, LIPID ####[facility] Mepujywknw0905 [place] [address]Dr. Garima Pulliam AST [Catalytic activity/Vol] 24 U/L Normal 15-37 [facility] Comment on above: Performed By: #### C MP, BNP, LIPID ####[facility] Buehklijaf[address] [place] [address]Dr. Garima Pulliam Bilirubin [Mass/Vol] 0.6 mg/dL Normal 0.2-1.0 [facility] Comment on above: Performed By: #### C MP, BNP, LIPID ####[facility] Mijjqonvip87[address] [place] [address]Dr. Garima Pulliam Calcium [Mass/Vol] 9.2 mg/dL Normal 8.5-10.1 [facility] Comment on above: Performed By: #### C MP, BNP, LIPID ####[facility] Bqnsrmdvhv6764 [place] [address]Dr. Garima Pulliam Chloride [Moles/Vol] 106 mmol/L Normal 98-107 [facility] Comment on above: Performed By: #### C MP, BNP, LIPID ####[facility] Egwkvyckfp8620 [place] [address]Dr. Garima Pulliam CO2 [Moles/Vol] 32.3 mmol/L Critically high 21.0-32.0 [facility] Comment on above: Performed By: #### C MP, BNP, LIPID ####[facility] Thkknyewry1256 [place] [address]Dr. Garima Pulliam Creatinine [Mass/Vol] 0.70 mg/dL Normal 0.70-1.30 [facility] Comment on above: Performed By: #### C MP, BNP, LIPID ####[facility] Bmihnxjpju[address] [place] [id number]. Garima Pulliam EGFR-AF ANGOLAN >60 Normal >=60 [facility] Comment on above: Performed By: #### C MP, BNP, LIPID ####[facility] Aesigevfki94[address] [place] [id number]. Garima Pulliam EGFR-NON AF ANGOLAN >60 Normal >=60 [facility] Comment on above: Performed By: #### C MP, BNP, LIPID ####[facility] Dsyndjklds1350 [place] [address]Dr. Garima Pulliam Globulin (S) [Mass/Vol] 2.9 g/dL Normal [facility] Comment on above: Performed By: #### C MP, BNP, LIPID ####[facility] Ztpxqgzpgj5881 [place] [address]Dr. Garima Pulliam Glucose [Mass/Vol] 111 mg/dL Critically high 74-106 [facility] Comment on above: Performed By: #### C MP, BNP, LIPID ####[facility] Whklofpxxa4836 [place] [address]Dr. Garima Pulliam Potassium [Moles/Vol] 4.2 mmol/L Normal 3.5-5.1 [facility] Comment on above: Performed By: #### C MP, BNP, LIPID ####[facility] Sykqgrtjcq3523 [place] [address]Dr. Garima Pulliam Protein [Mass/Vol] 6.4 g/dL Normal 6.4-8.2 [facility] Comment on above: Performed By: #### C MP, BNP, LIPID ####[facility] Azlainzywz6607 [place] [address]Dr. Garima Pulliam Sodium [Moles/Vol] 144 mmol/L Normal 136-145 [facility] Comment on above: Performed By: #### C MP, BNP, LIPID ####[facility] Vfwjunheub0138 [place] [address]Dr. Garima Pulliam Urea nitrogen [Mass/Vol] 7.0 mg/dL Normal 7.0-18.0 [facility] Comment on above: Performed By: #### C MP, BNP, LIPID ####[facility] Hwzaauaekq[address] [place], [place] [address]Dr. Garima Pulliam Urea nitrogen/Creatinine [Mass ratio] 10.0 mg/mg Normal [facility] Comment on above: Performed By: #### C MP, BNP, LIPID ####[facility] Nneevtrdsy246[address] [place], [place] [address]Dr. Garima Pulliam BNPon 03-22-2023 Natriuretic peptide B (Bld) [Mass/Vol] 103.0 pg/mL Normal <=900.0 [facility] Comment on above: Performed By: #### B SALES APPRENTICE, BMP ####[facility] Fevpknrykx[address] [place], [place] [address]Dr. Garima Pulliam CBC AUTO DIFFon 03-22-2023 BASO # 0.0 103/ul Normal 0.0-0.1 [facility] Comment on above: Performed By: #### C BC ####[facility] Caazjgoqje[address] [place], [place] [address]Dr. Garima Heraclio Basophils/100 WBC (Bld) 0.3 % Normal 0.2-2.0 [facility] Comment on above: Performed By: #### C BC ####[facility] Wimgkdboox96[address] [place], [place] [address]Dr. Garima Pulliam EO # 0.2 103/ul Normal 0.0-0.7 [facility] Comment on above: Performed By: #### C BC ####[facility] Upinzfvmkr[address] [place], [place] [address]Dr. Garima Pulliam Eosinophils/100 WBC (Bld) 2.2 % Normal 0.9-7.0 [facility] Comment on above: Performed By: #### C BC ####[facility] Igrfxypgnj94[address] [place], [place] [address]Dr. Garima Pulliam Erythrocyte distribution width (RBC) [Ratio] 13.2 % Normal 11.0-15.0 [facility] Comment on above: Performed By: #### C BC ####[facility] Hhaaxcksqj17[address] [place] [id number]. Garima Pulliam Hematocrit (Bld) [Volume fraction] 43.4 % Normal 42.0-54.0 [facility] Comment on above: Performed By: #### C BC ####[facility] Wwnmkdustk9733 [place] [address]Dr. Garima Heraclio Hemoglobin (Bld) [Mass/Vol] 14.3 g/dL Normal 14.0-18.0 [facility] Comment on above: Performed By: #### C BC ####[facility] Ztomnpdbfk0747 [place] [address]Dr. Garima Pulliam IG # 0.02 10e3/ul Normal 0.00-0.03 [facility] Comment on above: Performed By: #### C BC ####[facility] Fwjtyocoah2860 [place] [address]Dr. Garima Pulliam IG % 0.3 % Normal 0.0-0.5 [facility] Comment on above: Performed By: #### C BC ####[facility] Koworwzlzv38[address] [place] [address]Dr. Chapisrenu Pulliam LYMPH # 2.0 103/ul Normal 1.2-3.8 [facility] Comment on above: Performed By: #### C BC ####[facility] Ietsqgfcgp6453 [place] [address]Dr. Chapisrenu Pulliam Lymphocytes/100 WBC (Bld) 24.8 % Normal 20.5-60.0 [facility] Comment on above: Performed By: #### C BC ####[facility] Xkjsrnodpf[address] [place] [address]Dr. Chapisrenu Pulliam MANUAL DIFF REQ NO Normal [facility] Comment on above: Performed By: #### C BC ####[facility] Npyrvwukwy5425 [place] [address]Dr. Garima Heraclio MCH (RBC) [Entitic mass] 30.0 pg Normal 25.9-34.0 [facility] Comment on above: Performed By: #### C BC ####[facility] [address]zeqakqnos[address] [place], [place] [address]Dr. Garima Pulliam MCHC (RBC) [Mass/Vol] 32.9 g/dL Normal 29.9-35.2 [facility] Comment on above: Performed By: #### C BC ####[facility] Shyqtabage7349 [place] [phone]. Garima Pulliam MCV (RBC) [Entitic vol] 91.0 fL Normal 80.0-94.0 [facility] Comment on above: Performed By: #### C BC ####[facility] Wrradiinkl6126 [place] [phone]. Garima Heraclio MONO # 0.8 103/ul Normal 0.3-0.8 [facility] Comment on above: Performed By: #### C BC ####[facility] Kxjxhhsmly3078 [place] [address]Dr. Chapisrenu Pulliam Monocytes/100 WBC (Bld) 9.7 % Normal 1.7-12.0 [facility] Comment on above: Performed By: #### C BC ####[facility] Fusmlarzkj0507 [place] [address]Dr. Garima Pulliam NEUT # 4.9 103/ul Normal 1.4-6.5 [facility] Comment on above: Performed By: #### C BC ####[facility] Pfwtopqhen3750 [place] [phone]. Garima Heraclio Neutrophils/100 WBC (Bld) 62.7 % Normal 43.0-75.0 [facility] Comment on above: Performed By: #### C BC ####[facility] Ylnekzmjqg7250 [place] [phone]. Garima Heraclio Platelet mean volume (Bld) [Entitic vol] 8.8 fL Critically low 9.5-13.5 [facility] Comment on above: Performed By: #### C BC ####[facility] Glqgsfwojo5840 [place] [phone]. Garima Heraclio PLT 198 103/ul Normal 150-450 [facility] Comment on above: Performed By: #### C BC ####[facility] Otkohqtjhs5190 [place] [phone]. Garima Heraclio RBC 4.77 106/ul Normal 4.70-6.10 [facility] Comment on above: Performed By: #### C BC ####[facility] Tgeuqhzcla6689 [place] [phone]. Garima Heraclio WBC 7.9 103/ul Normal 4.0-11.0 [facility] Comment on above: Performed By: #### C BC ####[facility] Dhampfojme4501 [place] [phone]. Garima Heraclio D-DIMERon 03-22-2023 D-DIMER 0.85 mg/L FEU Critically high <=0.59 [facility] [place] Comment on above: Performed By: #### D DIM ####[facility] Mzkouivjob2227 [place] [address]Dr. Garima Pulliam D-DIMER COMMENTS SEE BELOW Normal [facility] Comment on above: Result [...] #### D DIM ####[facility] Eqpdyrzmzq92[address] [place], [place] [address]Dr. Garima Pulliam PROF CHEM 8 (BAS METB)on Anion gap [Moles/Vol] 6.9 mmol/L Normal [facility] Comment on above: Performed By: #### B SALES APPRENTICE, BMP ####[facility] Qkhkvzenin4255 [place] [address]Dr. Garima Pulliam Calcium [Mass/Vol] 8.9 mg/dL Normal 8.5-10.1 [facility] [place] Comment on above: Performed By: #### B SALES APPRENTICE, BMP ####[facility] Gcfgbsjyqc2034 [place] [address]Dr. Garima Pulliam Chloride [Moles/Vol] 101 mmol/L Normal 98-107 [facility] Comment on above: Performed By: #### B SALES APPRENTICE, BMP ####[facility] Nohjipklvl214[address] [place], [place] [address]Dr. Chapisrenu Heraclio CO2 [Moles/Vol] 30.7 mmol/L Normal 21.0-32.0 [facility] Comment on above: Performed By: #### B SALES APPRENTICE, BMP ####[facility] Iccefxechl226[address] [place], [place] [address]Dr. Garima Pulliam Creatinine [Mass/Vol] 0.82 mg/dL Normal 0.70-1.30 [facility] Comment on above: Performed By: #### B SALES APPRENTICE, BMP ####[facility] Xhtdrjuukf236[address] [place], [place] [address]Dr. Garima Pulliam EGFR-AF ANGOLAN >60 Normal >=60 [facility] Comment on above: Performed By: #### B SALES APPRENTICE, BMP ####[facility] Vaojbegsyc029[address] [place], [place] [address]Dr. Chapisrenu Heraclio EGFR-NON AF ANGOLAN >60 Normal >=60 [facility] Comment on above: Performed By: #### B SALES APPRENTICE, BMP ####[facility] Lxfaahmpyh095[address] [place], [place] [address]Dr. Garima Pulliam Glucose [Mass/Vol] 339 mg/dL Critically high 74-106 [facility] Comment on above: Performed By: #### B SALES APPRENTICE, BMP ####[facility] Kvjprtfsxo[address] [place], [place] [address]Dr. Garima Pulliam Potassium [Moles/Vol] 3.6 mmol/L Normal 3.5-5.1 [facility] Comment on above: Performed By: #### B SALES APPRENTICE, BMP ####[facility] Gsckulasgt23[address] [place], [place] [address]Dr. Garima Pulliam Sodium [Moles/Vol] 135 mmol/L Critically low 136-145 [facility] Comment on above: Performed By: #### B SALES APPRENTICE, BMP ####[facility] Gkfwssgsac501[address] [place], [place] [address]Dr. Garima Pulliam Urea nitrogen [Mass/Vol] 11.0 mg/dL Normal 7.0-18.0 [facility] Comment on above: Performed By: #### B SALES APPRENTICE, BMP ####[facility] Jxfnglnsih626[address] [place], [place] [address]Dr. Garima Pulliam Urea nitrogen/Creatinine [Mass ratio] 13.4 mg/mg Normal [facility] Comment on above: Performed By: #### B SALES APPRENTICE, BMP ####[facility] Kpafqwsojq90[address] [place], [place] [address]Dr. Garima Pulliam US VERONICA DOP LEG BILon 023 US VERONICA DOP LEG BENOIT Normal [facility] BNPon 03-18-2023 Natriuretic peptide B (Bld) [Mass/Vol] 226.0 pg/mL Normal <=900.0 [facility] Comment on above: Performed By: #### B SALES APPRENTICE, BMP ####[facility] Ojhlnscjes638[address] [place], [place] [address]Dr. Garima Pulliam CBC AUTO DIFFon 03-18-2023 BASO # 0.0 103/ul Normal 0.0-0.1 [facility] Comment on above: Performed By: #### C BC ####[facility] Irdztpnvkn234[address] [place], [place] [address]Dr. Garima Heraclio Basophils/100 WBC (Bld) 0.2 % Normal 0.2-2.0 [facility] Comment on above: Performed By: #### C BC ####[facility] Hvcrbpilga8[address] [place], [place] [address]Dr. Garima Pulliam EO # 0.3 103/ul Normal 0.0-0.7 [facility] Comment on above: Performed By: #### C BC ####[facility] Dtfsfvlucx[address] [place], [place] [address]Dr. Garima Heraclio Eosinophils/100 WBC (Bld) 2.5 % Normal 0.9-7.0 [facility] Comment on above: Performed By: #### C BC ####[facility] Xoagncgqzv9225[address] [place], [place] [address]Dr. Garima Heraclio Erythrocyte distribution width (RBC) [Ratio] 13.2 % Normal 11.0-15.0 [facility] Comment on above: Performed By: #### C BC ####[facility] Zbuplnvnud9965 [place] [address]DrAdalberto Pulliam Hematocrit (Bld) [Volume fraction] 45.8 % Normal 42.0-54.0 [facility] Comment on above: Performed By: #### C BC ####[facility] Dbulxoucby3005 [place] [address]DrAdalberto Pulliam Hemoglobin (Bld) [Mass/Vol] 15.3 g/dL Normal 14.0-18.0 [facility] Comment on above: Performed By: #### C BC ####[facility] Gtgsorqeka475[address] [place], [place] [address]DrAdalberto Pulliam IG # 0.02 10e3/ul Normal 0.00-0.03 [facility] Comment on above: Performed By: #### C BC ####[facility] Qbfrqmuhou39[address] [place], [place] [address]DrAdalberto Pulliam IG % 0.2 % Normal 0.0-0.5 [facility] Comment on above: Performed By: #### C BC ####[facility] Lvsisjbbqr[address] [place], [place] [address]DrAdalberto Pulliam LYMPH # 1.8 103/ul Normal 1.2-3.8 [facility] Comment on above: Performed By: #### C BC ####[facility] Riaqmudxmn54[address] [place], [place] [address]DrAdalberto Pulliam Lymphocytes/100 WBC (Bld) 18.3 % Critically low 20.5-60.0 [facility] Comment on above: Performed By: #### C BC ####[facility] Rivrtintoe[address] [place], [place] [address]DrAdalberto Pulliam MANUAL DIFF REQ NO Normal [facility] Comment on above: Performed By: #### C BC ####[facility] Ftmgdhwtrp6961 [place] [address]DrAdalberto Pulliam MCH (RBC) [Entitic mass] 30.5 pg Normal 25.9-34.0 [facility] Comment on above: Performed By: #### C BC ####[facility] Xybhqjhuuw8728 [place] [address]DrAdalberto Pulliam MCHC (RBC) [Mass/Vol] 33.4 g/dL Normal 29.9-35.2 [facility] Comment on above: Performed By: #### C BC ####[facility] Rwwkjjyovw9411 [place] [address]DrAdalberto Pulliam MCV (RBC) [Entitic vol] 91.2 fL Normal 80.0-94.0 [facility] Comment on above: Performed By: #### C BC ####[facility] Ckbamattdv[address] [place], [place] [address]DrAdalberto Pulliam MONO # 0.8 103/ul Normal 0.3-0.8 [facility] Comment on above: Performed By: #### C BC ####[facility] Zbkoaebuzp9[address] [place], [place] [address]DrAdalberto Pulliam Monocytes/100 WBC (Bld) 7.6 % Normal 1.7-12.0 [facility] Comment on above: Performed By: #### C BC ####[facility] Rqyuvqsjqu284[address] [place], [place] [address]DrAdalberto uPlliam NEUT # 7.0 103/ul Critically high 1.4-6.5 [facility] Comment on above: Performed By: #### C BC ####[facility] Uudtlpmewg[address] [place], [place] [address]DrAdalberto Pulliam Neutrophils/100 WBC (Bld) 71.2 % Normal 43.0-75.0 [facility] Comment on above: Performed By: #### C BC ####[facility] Ykowdugqbu50[address] [place], [place] [address]DrAdalberto Pulliam Platelet mean volume (Bld) [Entitic vol] 8.9 fL Critically low 9.5-13.5 [facility] Comment on above: Performed By: #### C BC ####[facility] Cqxjutrywc[address] [place], [place] [address]DrAdalberto Pulliam PLT 217 103/ul Normal 150-450 [facility] Comment on above: Performed By: #### C BC ####[facility] Pgebhhugst8730 [place] [address]Dr. Garima Heraclio RBC 5.02 106/ul Normal 4.70-6.10 [facility] Comment on above: Performed By: #### C BC ####[facility] Oyhmmhfwjm[address] [place], [place] [address]Dr. Garima Pulliam WBC 9.8 103/ul Normal 4.0-11.0 [facility] Comment on above: Performed By: #### C BC ####[facility] Kzwmrjtfdp[address] [place], [place] [address]Dr. Garima Heraclio CRPon 03-18-2023 CRP 0.1 mg/dL Normal <=1.0 [facility] Comment on above: Performed By: #### C RP ####[facility] Dxkbeuhxlb[address] [place], [place] [address]Dr. Garima Heraclio PROF CHEM 8 (BAS METB)on Anion gap [Moles/Vol] 10.4 mmol/L Normal [facility] Comment on above: Performed By: #### B SALES APPRENTICE, BMP ####[facility] Iegdouffnj47[address] [place], [place] [address]Dr. Garima Heraclio Calcium [Mass/Vol] 8.8 mg/dL Normal 8.5-10.1 [facility] Comment on above: Performed By: #### B SALES APPRENTICE, BMP ####[facility] Hmpenefntz16[address] [place], [place] [address]Dr. Garima Heraclio Chloride [Moles/Vol] 97 mmol/L Critically low 98-107 [facility] Comment on above: Performed By: #### B SALES APPRENTICE, BMP ####[facility] Zmnbzublbm[address] [place], [place] [address]Dr. Garima Pulliam CO2 [Moles/Vol] 31.2 mmol/L Normal 21.0-32.0 [facility] Comment on above: Performed By: #### B SALES APPRENTICE, BMP ####[facility] Sfjlgwlnou[address] [place], [place] [address]Dr. Garima Pulliam Creatinine [Mass/Vol] 0.91 mg/dL Normal 0.70-1.30 [facility] Comment on above: Performed By: #### B SALES APPRENTICE, BMP ####[facility] Hccntcraiq6303 [place] [address]Dr. Garima Pulliam EGFR-AF ANGOLAN >60 Normal >=60 [facility] Comment on above: Performed By: #### B SALES APPRENTICE, BMP ####[facility] Rgntlaqryv6145 [place] [id number]. Garima Pulliam EGFR-NON AF ANGOLAN >60 Normal >=60 [facility] Comment on above: Performed By: #### B SALES APPRENTICE, BMP ####[facility] Nhvgzddzrz3022 [place] [address]Dr. Garima Pulliam Glucose [Mass/Vol] 315 mg/dL Critically high 74-106 [facility] Comment on above: Performed By: #### B SALES APPRENTICE, BMP ####[facility] Qdsujeprja4396 [place] [address]Dr. Garima Pulliam Potassium [Moles/Vol] 3.6 mmol/L Normal 3.5-5.1 [facility] Comment on above: Performed By: #### B SALES APPRENTICE, BMP ####[facility] Vdyqmmboek3385 [place] [address]Dr. Garima Pulliam Sodium [Moles/Vol] 135 mmol/L Critically low 136-145 [facility] Comment on above: Performed By: #### B SALES APPRENTICE, BMP ####[facility] Sxxjhepvma9584 [place] [address]Dr. Garima Pulliam Urea nitrogen [Mass/Vol] 7.0 mg/dL Normal 7.0-18.0 [facility] Comment on above: Performed By: #### B SALES APPRENTICE, BMP ####[facility] Oylgnuzwfo1121 [place] [address]Dr. Garima Pulliam Urea nitrogen/Creatinine [Mass ratio] 7.7 mg/mg Normal [facility] Comment on above: Performed By: #### B SALES APPRENTICE, BMP ####[facility] Drjjrrzgkb3457 [place] [address]Dr. Garima Pulliam SED RATE WESTERGRENon 2022 SED RATE 8 mm/hr Normal <=20 [facility] Comment on above: Performed By: #### S EDR ####[facility] Moademmjlg[address] [place], [place] [address]Dr. Garima Pulliam BNPon 03-16-2023 Natriuretic peptide B (Bld) [Mass/Vol] 241.0 pg/mL Normal <=900.0 [facility] Comment on above: Performed By: #### B SALES APPRENTICE, BMP, HSTROPN ####[facility] Zissvlthyi[address] [place], [place] [address]Dr. Garima Heraclio CBC AUTO DIFFon 03-16-2023 BASO # 0.0 103/ul Normal 0.0-0.1 [facility] Comment on above: Performed By: #### C BC ####[facility] Winllyjdlj[address] [place], [place] [address]Dr. Chapisrenu Pulliam Basophils/100 WBC (Bld) 0.2 % Normal 0.2-2.0 [facility] Comment on above: Performed By: #### C BC ####[facility] Cmzxfmydvd[address] [place], [place] [address]Dr. Garima Pulliam EO # 0.2 103/ul Normal 0.0-0.7 [facility] Comment on above: Performed By: #### C BC ####[facility] Ijmvdwbjtq109[address] [place], [place] [address]Dr. Chapisrenu Pulliam Eosinophils/100 WBC (Bld) 2.7 % Normal 0.9-7.0 [facility] Comment on above: Performed By: #### C BC ####[facility] Rtjsaaerdd[address] [place], [place] [address]Dr. Garima Pulliam Erythrocyte distribution width (RBC) [Ratio] 13.1 % Normal 11.0-15.0 [facility] Comment on above: Performed By: #### C BC ####[facility] Amzxfgczzx50[address] [place], [place] [address]Dr. Garima Pulliam Hematocrit (Bld) [Volume fraction] 41.8 % Critically low 42.0-54.0 [facility] Comment on above: Performed By: #### C BC ####[facility] [address] [place] [address]Dr. Garima Pulliam Hemoglobin (Bld) [Mass/Vol] 14.0 g/dL Normal 14.0-18.0 [facility] Comment on above: Performed By: #### C BC ####[facility] Ymsthyrfoi57[address] [place] [address]Dr. Garima Pulliam IG # 0.03 10e3/ul Normal 0.00-0.03 [facility] Comment on above: Performed By: #### C BC ####[facility] Uqibmfmswk07[address] [place] [address]Dr. Garima Pulliam IG % 0.3 % Normal 0.0-0.5 [facility] Comment on above: Performed By: #### C BC ####[facility] Gwqqrfbcgn29[address] [place], [place] [address]Dr. Chapisrenu Pulliam LYMPH # 2.1 103/ul Normal 1.2-3.8 [facility] Comment on above: Performed By: #### C BC ####[facility] Rxzatjxuuq897[address] [place], [place] [address]Dr. Chapisrenu Pulliam Lymphocytes/100 WBC (Bld) 24.2 % Normal 20.5-60.0 [facility] Comment on above: Performed By: #### C BC ####[facility] Czxgjmflvy[address] [place] [address]Dr. Garima Pulliam MANUAL DIFF REQ NO Normal [facility] Comment on above: Performed By: #### C BC ####[facility] Jgrlayquxg6799 [place] [address]Dr. Garima Pulliam MCH (RBC) [Entitic mass] 30.2 pg Normal 25.9-34.0 [facility] Comment on above: Performed By: #### C BC ####[facility] Pakpggyrbe24[address] [place] [address]Dr. Garima Pulliam MCHC (RBC) [Mass/Vol] 33.5 g/dL Normal 29.9-35.2 [facility] Comment on above: Performed By: #### C BC ####[facility] [address]rvzlnoqt8[address] [place] [id number]. Garima Pulliam MCV (RBC) [Entitic vol] 90.1 fL Normal 80.0-94.0 [facility] Comment on above: Performed By: #### C BC ####[facility] Spwnsapzcm10[address] [place] [id number]. Garima Pulliam MONO # 0.6 103/ul Normal 0.3-0.8 [facility] Comment on above: Performed By: #### C BC ####[facility] Ueijykemcs3714 [place] [address]Dr. Garima Heraclio Monocytes/100 WBC (Bld) 7.4 % Normal 1.7-12.0 [facility] Comment on above: Performed By: #### C BC ####[facility] Rsoaqpwbfc[address] [place], [place] [address]Dr. Garima Pulliam NEUT # 5.6 103/ul Normal 1.4-6.5 [facility] Comment on above: Performed By: #### C BC ####[facility] Bnskuqsufd65[address] [place], [place] [address]Dr. Garima Heraclio Neutrophils/100 WBC (Bld) 65.2 % Normal 43.0-75.0 [facility] Comment on above: Performed By: #### C BC ####[facility] Rnobtsysgh3464 [place] [phone]. Garima Heraclio Platelet mean volume (Bld) [Entitic vol] 8.7 fL Critically low 9.5-13.5 [facility] Comment on above: Performed By: #### C BC ####[facility] Escdsiwfbw[address] [place], [place] [address]Dr. Garima Heraclio PLT 195 103/ul Normal 150-450 [facility] Comment on above: Performed By: #### C BC ####[facility] Rdohxabsxv1262 [place] [phone]. Garima Pulliam RBC 4.64 106/ul Critically low 4.70-6.10 [facility] Comment on above: Performed By: #### C BC ####[facility] Ufejvyhubd6936 [place] [address]Dr. Garima Pulliam WBC 8.6 103/ul Normal 4.0-11.0 [facility] Comment on above: Performed By: #### C BC ####[facility] Lvbovpqqze1037 [place] [address]Dr. Garima Pulliam PROF CHEM 8 (BAS METB)on Anion gap [Moles/Vol] 6.7 mmol/L Normal [facility] Comment on above: Performed By: #### B SALES APPRENTICE, BMP, HSTROPN ####[facility] Vvtrkfpshx9199 [place] [address]Dr. Garima Pulliam Calcium [Mass/Vol] 8.8 mg/dL Normal 8.5-10.1 [facility] Comment on above: Performed By: #### B SALES APPRENTICE, BMP, HSTROPN ####[facility] Pbmhgjgpmj[address] [place], [place] [address]Dr. Garima Pulliam Chloride [Moles/Vol] 106 mmol/L Normal 98-107 [facility] Comment on above: Performed By: #### B SALES APPRENTICE, BMP, HSTROPN ####[facility] Gvadnrfyes[address] [place], [place] [address]Dr. Garima Pulliam CO2 [Moles/Vol] 31.4 mmol/L Normal 21.0-32.0 [facility] Comment on above: Performed By: #### B SALES APPRENTICE, BMP, HSTROPN ####[facility] Hwywdikdyg[address] [place], [place] [address]Dr. Garima Pulliam Creatinine [Mass/Vol] 0.75 mg/dL Normal 0.70-1.30 [facility] Comment on above: Performed By: #### B SALES APPRENTICE, BMP, HSTROPN ####[facility] Xxzfcwioec4781 [place] [address]Dr. Garima Pulliam EGFR-AF ANGOLAN >60 Normal >=60 [facility] Comment on above: Performed By: #### B SALES APPRENTICE, BMP, HSTROPN ####[facility] Qhpoeembnp4953 [place] [address]Dr. Garima Pulliam EGFR-NON AF ANGOLAN >60 Normal >=60 [facility] Comment on above: Performed By: #### B SALES APPRENTICE, BMP, HSTROPN ####[facility] Lilmdgiptc2063 [place] [address]Dr. Garima Pulliam Glucose [Mass/Vol] 161 mg/dL Critically high 74-106 [facility] Comment on above: Performed By: #### B SALES APPRENTICE, BMP, HSTROPN ####[facility] Tkbkmojmai4487 [place] [address]Dr. Garima Pulliam Potassium [Moles/Vol] 4.1 mmol/L Normal 3.5-5.1 [facility] Comment on above: Performed By: #### B SALES APPRENTICE, BMP, HSTROPN ####[facility] Fhlgscscoz3429 [place] [address]Dr. Garima Pulliam Sodium [Moles/Vol] 140 mmol/L Normal 136-145 [facility] Comment on above: Performed By: #### B SALES APPRENTICE, BMP, HSTROPN ####[facility] Njdbxvylwl8781 [place] [address]Dr. Garima Pulliam Urea nitrogen [Mass/Vol] 7.0 mg/dL Normal 7.0-18.0 [facility] Comment on above: Performed By: #### B SALES APPRENTICE, BMP, HSTROPN ####[facility] Kdgiakxowo04[address] [place] [address]Dr. Garima Pulliam Urea nitrogen/Creatinine [Mass ratio] 9.3 mg/mg Normal [facility] Comment on above: Performed By: #### B SALES APPRENTICE, BMP, HSTROPN ####[facility] Ahjqkltxrm87[address] [place] [address]Dr. Garima Pulliam TROPONIN, HIGH SENSITIVITYon 03-16-2023 HSTROP 9.7 pg/mL Normal 4.0-76.1 [facility] Comment on above: Result Comment: CUT- OFF POINTS HAVE BEEN ESTABLISHED BASED ON THE FOURTH UNIVERSAL DEFINITIONS OF MYOCARDIALINFARCTION. THE UPPER REFERENCE LIMIT (URL) OF TROPONIN, DEFINED THE 99TH PERCENTILE OFcTnI DISTRIBUTION IN A REFERENCE POPULATION, HAS BEEN CONFIRMED THE DECISION THRESHOLDFOR WA DIAGNOSIS. Performed By: #### B SALES APPRENTICE, BMP, HSTROPN ####[facility] Trmndebvyb32[address] [place] [address]Dr. Garima Pulliam XR CHEST 1 Von 03-16-2023 XR CHEST 1 V Normal [facility] BNPon 03-06-2023 Natriuretic peptide B (Bld) [Mass/Vol] 111.0 pg/mL Normal <=900.0 [facility] Comment on above: Performed By: #### C MP, BNP, CK ####[facility] Eraiuglqyi5145 [place] [address]Dr. Chapisrenu Pulliam CBC AUTO DIFFon 03-06-2023 BASO # 0.0 103/ul Normal 0.0-0.1 [facility] Comment on above: Performed By: #### C BC ####[facility] Pxthuizada[address] [place], [place] [address]Dr. Garima Pulliam Basophils/100 WBC (Bld) 0.2 % Normal 0.2-2.0 [facility] Comment on above: Performed By: #### C BC ####[facility] Luwptdrthf[address] [place], [place] [address]Dr. Garima Pulliam EO # 0.3 103/ul Normal 0.0-0.7 [facility] Comment on above: Performed By: #### C BC ####[facility] Fgohxbuxci84[address] [place], [place] [address]Dr. Garima Pulliam Eosinophils/100 WBC (Bld) 3.5 % Normal 0.9-7.0 [facility] Comment on above: Performed By: #### C BC ####[facility] Wrnrfpcqal[address] [place], [place] [address]Dr. Garima Pulliam Erythrocyte distribution width (RBC) [Ratio] 13.3 % Normal 11.0-15.0 [facility] Comment on above: Performed By: #### C BC ####[facility] Ddpelbcrqy257[address] [place], [place] [address]Dr. Garima Pulliam Hematocrit (Bld) [Volume fraction] 43.7 % Normal 42.0-54.0 [facility] Comment on above: Performed By: #### C BC ####[facility] Rfzyinjogl5428 [place] [address]Dr. Garima Pulliam Hemoglobin (Bld) [Mass/Vol] 14.7 g/dL Normal 14.0-18.0 [facility] Comment on above: Performed By: #### C BC ####[facility] Gretyiboqx1448 [place] [address]Dr. Chapisrenu Heraclio IG # 0.03 10e3/ul Normal 0.00-0.03 [facility] Comment on above: Performed By: #### C BC ####[facility] Dzpmdtmqzj190[address] [place], [place] [address]Dr. Garima Pulliam IG % 0.4 % Normal 0.0-0.5 [facility] Comment on above: Performed By: #### C BC ####[facility] Egxkhrxuog038[address] [place], [place] [address]Dr. Garima Pulliam LYMPH # 2.0 103/ul Normal 1.2-3.8 [facility] Comment on above: Performed By: #### C BC ####[facility] Lgckegbedc50[address] [place], [place] [address]DrAdalberto Pulliam Lymphocytes/100 WBC (Bld) 23.7 % Normal 20.5-60.0 [facility] Comment on above: Performed By: #### C BC ####[facility] Shszdbgedr2156 [place] [address]Dr. Garima Pulliam MANUAL DIFF REQ NO Normal [facility] Comment on above: Performed By: #### C BC ####[facility] Qtdmvdtdst7130 [place] [id number] Pulliam MCH (RBC) [Entitic mass] 30.1 pg Normal 25.9-34.0 [facility] Comment on above: Performed By: #### C BC ####[facility] Bllovnsdbm1658 [place] [phone]. Garima Pulliam MCHC (RBC) [Mass/Vol] 33.6 g/dL Normal 29.9-35.2 [facility] Comment on above: Performed By: #### C BC ####[facility] Ylvbpnlqfz5379 [place] [address]Dr. Garima Heraclio MCV (RBC) [Entitic vol] 89.4 fL Normal 80.0-94.0 [facility] Comment on above: Performed By: #### C BC ####[facility] Qbzgdgznal6138 [place] [address]Dr. Garima Pulliam MONO # 0.8 103/ul Normal 0.3-0.8 [facility] Comment on above: Performed By: #### C BC ####[facility] Puxdkmkxrp2574 [place] [address]Dr. Garima Pulliam Monocytes/100 WBC (Bld) 9.0 % Normal 1.7-12.0 [facility] Comment on above: Performed By: #### C BC ####[facility] Temmvjtaih[address] [place], [place] [address]Dr. Garima Pulliam NEUT # 5.4 103/ul Normal 1.4-6.5 [facility] Comment on above: Performed By: #### C BC ####[facility] Kpszsoueak[address] [place], [place] [address]Dr. Garima Pulliam Neutrophils/100 WBC (Bld) 63.2 % Normal 43.0-75.0 [facility] Comment on above: Performed By: #### C BC ####[facility] Eqkzuebmiu[address] [place], [place] [address]Dr. Garima Pulliam Platelet mean volume (Bld) [Entitic vol] 9.0 fL Critically low 9.5-13.5 [facility] Comment on above: Performed By: #### C BC ####[facility] Krmrabrovh[address] [place], [place] [address]Dr. Garima Pulliam PLT 218 103/ul Normal 150-450 [facility] Comment on above: Performed By: #### C BC ####[facility] Mzauldnpbn4133 [place] [id number]. Garima Pulliam RBC 4.89 106/ul Normal 4.70-6.10 [facility] Comment on above: Performed By: #### C BC ####[facility] Ogfyefgawf2401 [place] [address]Dr. Garima Pulliam WBC 8.5 103/ul Normal 4.0-11.0 [facility] Comment on above: Performed By: #### C BC ####[facility] Bfrxztlvuq2506 [place] [address]Dr. Garima Pulliam CPKon 03-06-2023 CK [Catalytic activity/Vol] 191 U/L Normal 39-308 [facility] Comment on above: Performed By: #### C MP, BNP, CK ####[facility] Vdswmszimg7366 [place] [address]Dr. Garima Pulliam PROF 14(COMP METB)on 023 Albumin [Mass/Vol] 3.6 g/dL Normal 3.4-5.0 [facility] Comment on above: Performed By: #### C MP, BNP, CK ####[facility] Nzhgnvbudz6401 [place] [address]Dr. Garima Pulliam Albumin/Globulin [Mass ratio] 1.2 {ratio} Normal [facility] Comment on above: Performed By: #### C MP, BNP, CK ####[facility] Hlvapblwqv5943 [place] [address]Dr. Garima Pulliam ALP [Catalytic activity/Vol] 91 U/L Normal 46-116 [facility] Comment on above: Performed By: #### C MP, BNP, CK ####[facility] Dffwmppyul9340 [place] [address]Dr. Garima Pulliam ALT [Catalytic activity/Vol] 33 U/L Normal 16-63 [facility] Comment on above: Performed By: #### C MP, BNP, CK ####[facility] Nntusyyfzm3122 [place] [address]Dr. Garima Pulliam Anion gap [Moles/Vol] 10.3 mmol/L Normal [facility] Comment on above: Performed By: #### C MP, BNP, CK ####[facility] Sdnutlloda7618 [place] [address]Dr. Garima Pulliam AST [Catalytic activity/Vol] 17 U/L Normal 15-37 [facility] Comment on above: Performed By: #### C MP, BNP, CK ####[facility] Sfgarvujtl3514 [place] [address]Dr. Garima Pulliam Bilirubin [Mass/Vol] 0.4 mg/dL Normal 0.2-1.0 [facility] Comment on above: Performed By: #### C MP, BNP, CK ####[facility] Hmofnbvnbk8119 [place] [address]Dr. Garima Pulliam Calcium [Mass/Vol] 9.1 mg/dL Normal 8.5-10.1 [facility] [place] Comment on above: Performed By: #### C MP, BNP, CK ####[facility] Ihutdfckvy8009 [place] [address]Dr. Garima Pulliam Chloride [Moles/Vol] 102 mmol/L Normal 98-107 [facility] Comment on above: Performed By: #### C MP, BNP, CK ####[facility] Qqygfbxgqs0891 [place] [address]Dr. Garima Pulliam CO2 [Moles/Vol] 29.7 mmol/L Normal 21.0-32.0 [facility] Comment on above: Performed By: #### C MP, BNP, CK ####[facility] Ogdfwbvqzm8394 [place] [address]Dr. Garima Pulliam Creatinine [Mass/Vol] 0.79 mg/dL Normal 0.70-1.30 [facility] Comment on above: Performed By: #### C MP, BNP, CK ####[facility] Ntiihxaovf3021 [place] [address]Dr. Garima Pulliam EGFR-AF ANGOLAN >60 Normal >=60 [facility] Comment on above: Performed By: #### C MP, BNP, CK ####[facility] Yxqcmxavmv7240 [place] [address]Dr. Garima Pulliam EGFR-NON AF ANGOLAN >60 Normal >=60 [facility] Comment on above: Performed By: #### C MP, BNP, CK ####[facility] Wdjcozgkto3440 [place] [address]Dr. Garima Pulliam Globulin (S) [Mass/Vol] 3.0 g/dL Normal [facility] Comment on above: Performed By: #### C MP, BNP, CK ####[facility] Mswxneypoq4803 [place] [address]Dr. Garima Pulliam Glucose [Mass/Vol] 202 mg/dL Critically high 74-106 [facility] Comment on above: Performed By: #### C MP, BNP, CK ####[facility] Omkshijgvw7038 [place] [address]Dr. Garima Pulliam Potassium [Moles/Vol] 4.0 mmol/L Normal 3.5-5.1 [facility] Comment on above: Performed By: #### C MP, BNP, CK ####[facility] Osnobutcaa2334 [place] [address]Dr. Garima Pulliam Protein [Mass/Vol] 6.6 g/dL Normal 6.4-8.2 [facility] Comment on above: Performed By: #### C MP, BNP, CK ####[facility] Kxlkytlyxx[address] [place], [place] [address]Dr. Garima Pulliam Sodium [Moles/Vol] 138 mmol/L Normal 136-145 [facility] Comment on above: Performed By: #### C MP, BNP, CK ####[facility] Noykyfatoi[address] [place], [place] [address]Dr. Garima Pulliam Urea nitrogen [Mass/Vol] 10.0 mg/dL Normal 7.0-18.0 [facility] Comment on above: Performed By: #### C MP, BNP, CK ####[facility] Frmnmtdpve0975 [place] [address]Dr. Garima Pulliam Urea nitrogen/Creatinine [Mass ratio] 12.7 mg/mg Normal [facility] Comment on above: Performed By: #### C MP, BNP, CK ####[facility] Gcrfddsqhi5729 [place] [address]Dr. Garima Pulliam US VERONICA DOP LEG BILon 023 US VERONICA DOP LEG BENOIT Normal [facility] CBC AUTO DIFFon 01-13-2023 BASO # 0.0 103/ul Normal 0.0-0.1 [facility] Comment on above: Performed By: #### C BC ####[facility] Ajucxhoxhp9389 [place] [id number]. Chapisrenu Pulliam Basophils/100 WBC (Bld) 0.0 % Critically low 0.2-2.0 [facility] Comment on above: Performed By: #### C BC ####[facility] Mlwddsqhbt1559 [place] [address]Dr. Garima Pulliam EO # 0.0 103/ul Normal 0.0-0.7 [facility] Comment on above: Performed By: #### C BC ####[facility] Rnsiopzwbs[address] [place], [place] [address]Dr. Garima Pulliam Eosinophils/100 WBC (Bld) 0.0 % Critically low 0.9-7.0 [facility] Comment on above: Performed By: #### C BC ####[facility] Jfpbapvyqg7878 [place] [address]Dr. Garima Pulliam Erythrocyte distribution width (RBC) [Ratio] 13.2 % Normal 11.0-15.0 [facility] Comment on above: Performed By: #### C BC ####[facility] Ishsouswfz034[address] [place], [place] [address]Dr. Garima Pulliam Hematocrit (Bld) [Volume fraction] 46.7 % Normal 42.0-54.0 [facility] Comment on above: Performed By: #### C BC ####[facility] Szvdwgbkxu503[address] [place], [place] [address]Dr. Garima Pulliam Hemoglobin (Bld) [Mass/Vol] 15.6 g/dL Normal 14.0-18.0 [facility] Comment on above: Performed By: #### C BC ####[facility] Tocpaneylw[address] [place], [place] [address]Dr. Garima Pulliam IG # 0.01 10e3/ul Normal 0.00-0.03 [facility] Comment on above: Performed By: #### C BC ####[facility] Fsvjahmckt6632 [place] [id number]. Garima Pulliam IG % 0.2 % Normal 0.0-0.5 [facility] Comment on above: Performed By: #### C BC ####[facility] Eoaglhyoxk8211 [place] [phone]. Garima Pulliam LYMPH # 0.8 103/ul Critically low 1.2-3.8 [facility] Comment on above: Performed By: #### C BC ####[facility] Wsubmeexmh8657 [place] [phone]. Garima Pulliam Lymphocytes/100 WBC (Bld) 12.7 % Critically low 20.5-60.0 [facility] Comment on above: Performed By: #### C BC ####[facility] Qnsdkxrpqo0812 [place] [address]Dr. Garima Pulliam MANUAL DIFF REQ NO Normal [facility] Comment on above: Performed By: #### C BC ####[facility] Mmzctwydlx6554 [place] [phone]. Garima Pulliam MCH (RBC) [Entitic mass] 30.2 pg Normal 25.9-34.0 [facility] Comment on above: Performed By: #### C BC ####[facility] Yhtsribbgc8736 [place] [phone]. Garima Pulliam MCHC (RBC) [Mass/Vol] 33.4 g/dL Normal 29.9-35.2 [facility] Comment on above: Performed By: #### C BC ####[facility] Aflzdzphhz6482 [place] [phone]. Garima Pulliam MCV (RBC) [Entitic vol] 90.3 fL Normal 80.0-94.0 [facility] Comment on above: Performed By: #### C BC ####[facility] Memphgpadp5890 [place] [phone]. Garima Heraclio MONO # 0.1 103/ul Critically low 0.3-0.8 [facility] Comment on above: Performed By: #### C BC ####[facility] Rbeglmfxxh0748 [place] [phone]. Garima Pulliam Monocytes/100 WBC (Bld) 0.9 % Critically low 1.7-12.0 [facility] Comment on above: Performed By: #### C BC ####[facility] Tcuyurizuw9391 [place] [phone]. Garima Pulliam NEUT # 5.6 103/ul Normal 1.4-6.5 [facility] Comment on above: Performed By: #### C BC ####[facility] Vhzqwqryex3925 [place] [phone]. Garima Pulliam Neutrophils/100 WBC (Bld) 86.2 % Critically high 43.0-75.0 [facility] Comment on above: Performed By: #### C BC ####[facility] Tfrxtkfxfw1565 [place] [address]Dr. Garima Pulliam Platelet mean volume (Bld) [Entitic vol] 9.1 fL Critically low 9.5-13.5 [facility] Comment on above: Performed By: #### C BC ####[facility] Pyezwtahnc[address] [place], [place] [address]Dr. Garima Pulliam PLT 169 103/ul Normal 150-450 [facility] Comment on above: Performed By: #### C BC ####[facility] Kxrymocoyn7[address] [place], [place] [address]Dr. Garima Pulliam RBC 5.17 106/ul Normal 4.70-6.10 [facility] Comment on above: Performed By: #### C BC ####[facility] K[address]igwzaq[address] [place], [place] [address]Dr. Garima Pulliam WBC 6.5 103/ul Normal 4.0-11.0 [facility] Comment on above: Performed By: #### C BC ####[facility] Ffuwrdxgmk24[address] [place], [place] [address]Dr. Garima Pulliam D-DIMERon 01-13-2023 D-DIMER 0.41 mg/L FEU Normal <=0.59 [facility] Comment on above: Performed By: #### D DIM ####[facility] Qdrlyfmeki7681 [place] [address]Dr. Garima Pulliam D-DIMER COMMENTS SEE BELOW Normal [...] #### D DIM ####[facility] [id number] [place], [place] [address]Dr. Garima Pulliam PROF 14(COMP METB)on 023 Albumin [Mass/Vol] 3.4 g/dL Normal 3.4-5.0 [facility] [place] Comment on above: Performed By: #### C MP ####[facility] Dpcdxuunzz558[address] [place], [place] [address]Dr. Garima Pulliam Albumin/Globulin [Mass ratio] 1.3 {ratio} Normal [facility] Comment on above: Performed By: #### C MP ####[facility] Ctzpwobrkb554[address] [place], [place] [address]Dr. Garima Pulliam ALP [Catalytic activity/Vol] 83 U/L Normal 46-116 [facility] Comment on above: Performed By: #### C MP ####[facility] Knbitjlwxa438[address] [place], [place] [address]Dr. Garima Pulliam ALT [Catalytic activity/Vol] 25 U/L Normal 16-63 [facility] Comment on above: Performed By: #### C MP ####[facility] Olesikeeyo[address] [place] [address]Dr. Garima Pulliam Anion gap [Moles/Vol] 14.5 mmol/L Normal [facility] Comment on above: Performed By: #### C MP ####[facility] Wgczpetsvm35[address] [place], [place] [address]Dr. Garima Pulliam AST [Catalytic activity/Vol] 19 U/L Normal 15-37 [facility] Comment on above: Performed By: #### C MP ####[facility] Lkezgvplpz087[address] [place], [place] [address]Dr. Garima Pulliam Bilirubin [Mass/Vol] 0.4 mg/dL Normal 0.2-1.0 [facility] Comment on above: Performed By: #### C MP ####[facility] Mqzplugcmu37[address] [place], [place] [address]Dr. Garima Pulliam Calcium [Mass/Vol] 8.7 mg/dL Normal 8.5-10.1 [facility] [place] Comment on above: Performed By: #### C MP ####[facility] Jrwuxcqytf209[address] [place], [place] [address]Dr. Garima Pulliam Chloride [Moles/Vol] 104 mmol/L Normal 98-107 [facility] Comment on above: Performed By: #### C MP ####[facility] Rgkkatlucw208[address] [place], [place] [address]Dr. Garima Pulliam CO2 [Moles/Vol] 24.5 mmol/L Normal 21.0-32.0 [facility] Comment on above: Performed By: #### C MP ####[facility] Blvlzxjflz347[address] [place], [place] [address]Dr. Garima Pulliam Creatinine [Mass/Vol] 0.70 mg/dL Normal 0.70-1.30 [facility] Comment on above: Performed By: #### C MP ####[facility] Gqmhzsypth680[address] [place], [place] [address]Dr. Garima Heraclio EGFR-AF ANGOLAN >60 Normal >=60 [facility] Comment on above: Performed By: #### C MP ####[facility] Nqybsfxbtu493[address] [place], [place] [address]Dr. Chapisrenu Heraclio EGFR-NON AF ANGOLAN >60 Normal >=60 [facility] Comment on above: Performed By: #### C MP ####[facility] Slprxsvoyc0423[address] [place], [place] [address]Dr. Chapisrenu Pulliam Globulin (S) [Mass/Vol] 2.6 g/dL Normal [facility] Comment on above: Performed By: #### C MP ####[facility] Jqcuxnjlgy[address] [place] [address]Dr. Garima Pulliam Glucose [Mass/Vol] 196 mg/dL Critically high 74-106 [facility] Comment on above: Performed By: #### C MP ####[facility] Pzuqvqnxoy29[address] [place] [address]Dr. Garima Pulliam Potassium [Moles/Vol] 4.0 mmol/L Normal 3.5-5.1 [facility] Comment on above: Performed By: #### C MP ####[facility] Tfqairgzvm0668 [place] [address]Dr. Garima Pulliam Protein [Mass/Vol] 6.0 g/dL Critically low 6.4-8.2 [facility] Comment on above: Performed By: #### C MP ####[facility] Cafbmwlvvd[address] [place], [place] [address]Dr. Garima Pulliam Sodium [Moles/Vol] 139 mmol/L Normal 136-145 [facility] [place] Comment on above: Performed By: #### C MP ####[facility] Ylaawuzgmq050[address] [place], [place] [address]Dr. Garima Pulliam Urea nitrogen [Mass/Vol] 7.0 mg/dL Normal 7.0-18.0 [facility] Comment on above: Performed By: #### C MP ####[facility] Xxqqdztjad260[address] [place], [place] [address]Dr. Garima Heraclio Urea nitrogen/Creatinine [Mass ratio] 10.0 mg/mg Normal [facility] Comment on above: Performed By: #### C MP ####[facility] Xarfcfqasb6075[address] [place], [place] [address]Dr. Garima Heraclio BNPon 01-12-2023 Natriuretic peptide B (Bld) [Mass/Vol] 141.0 pg/mL Normal <=900.0 [facility] Comment on above: Performed By: #### C MP, BNP, HSTROPN ####[facility] Ciazsqxbfn68[address] [place], [place] [address]Dr. Garima Heraclio CBC AUTO DIFFon 01-12-2023 BASO # 0.0 103/ul Normal 0.0-0.1 [facility] Comment on above: Performed By: #### C BC ####[facility] Pfeaplucmw4[address] [place] [id number]. Garima Heraclio Basophils/100 WBC (Bld) 0.2 % Normal 0.2-2.0 [facility] Comment on above: Performed By: #### C BC ####[facility] Rdternoxyv7176 [place] [address]Dr. Garima Heraclio EO # 0.2 103/ul Normal 0.0-0.7 [facility] Comment on above: Performed By: #### C BC ####[facility] Yurvzbyhkx9375 [place] [address]Dr. Garima Heraclio Eosinophils/100 WBC (Bld) 2.7 % Normal 0.9-7.0 [facility] Comment on above: Performed By: #### C BC ####[facility] Uxjxpoyhxh[address] [place], [place] [address]Dr. Garima Pulliam Erythrocyte distribution width (RBC) [Ratio] 13.3 % Normal 11.0-15.0 [facility] Comment on above: Performed By: #### C BC ####[facility] Kklrcipbtn910[address] [place], [place] [address]Dr. Garima Pulliam Hematocrit (Bld) [Volume fraction] 42.3 % Normal 42.0-54.0 [facility] Comment on above: Performed By: #### C BC ####[facility] Feptxsptsq1788[address] [place], [place] [address]Dr. Garima Pulliam Hemoglobin (Bld) [Mass/Vol] 14.3 g/dL Normal 14.0-18.0 [facility] Comment on above: Performed By: #### C BC ####[facility] Fieuzrbltv[address] [place], [place] [address]Dr. Garima Pulliam IG # 0.02 10e3/ul Normal 0.00-0.03 [facility] Comment on above: Performed By: #### C BC ####[facility] Dfllufcxdm33[address] [place] [id number]. Garima Pulliam IG % 0.2 % Normal 0.0-0.5 [facility] Comment on above: Performed By: #### C BC ####[facility] Ijvfdeoarg8375 [place] [address]Dr. Garima Pulliam LYMPH # 2.6 103/ul Normal 1.2-3.8 [facility] Comment on above: Performed By: #### C BC ####[facility] Mgnarxncvl9395 [place] [address]Dr. Garima Heraclio Lymphocytes/100 WBC (Bld) 29.6 % Normal 20.5-60.0 [facility] Comment on above: Performed By: #### C BC ####[facility] Pgxyhnbcna6391 [place] [address]Dr. Garima Heraclio MANUAL DIFF REQ NO Normal [facility] Comment on above: Performed By: #### C BC ####[facility] Fnyfnaaasc3748 [place] [phone]. Garima Pulliam MCH (RBC) [Entitic mass] 30.2 pg Normal 25.9-34.0 [facility] Comment on above: Performed By: #### C BC ####[facility] Vqkhvmgzzk2468 [place] [address]Dr. Garima Pulliam MCHC (RBC) [Mass/Vol] 33.8 g/dL Normal 29.9-35.2 [facility] Comment on above: Performed By: #### C BC ####[facility] Zwnobiphlh7685 [place] [phone]. Garima Pulliam MCV (RBC) [Entitic vol] 89.2 fL Normal 80.0-94.0 [facility] Comment on above: Performed By: #### C BC ####[facility] Gabsqmcpij96[address] [place], [place] [address]Dr. Chapisrenu Pulliam MONO # 0.7 103/ul Normal 0.3-0.8 [facility] Comment on above: Performed By: #### C BC ####[facility] Fvdcugbetp8181 [place] [phone]. Garima Pulliam Monocytes/100 WBC (Bld) 8.3 % Normal 1.7-12.0 [facility] Comment on above: Performed By: #### C BC ####[facility] Dqbizkwxov8757 [place] [address]Dr. Garima Pulliam NEUT # 5.1 103/ul Normal 1.4-6.5 [facility] Comment on above: Performed By: #### C BC ####[facility] Fdylmwqaxl0162 [place] [address]Dr. Garima Pulliam Neutrophils/100 WBC (Bld) 59.0 % Normal 43.0-75.0 [facility] Comment on above: Performed By: #### C BC ####[facility] Lfkivlzknm99[address] [place] [address]Dr. Garima Pulliam Platelet mean volume (Bld) [Entitic vol] 8.7 fL Critically low 9.5-13.5 [facility] Comment on above: Performed By: #### C BC ####[facility] Zuyidxoesh[address] [place] [address]Dr. Garima Pulliam PLT 182 103/ul Normal 150-450 [facility] Comment on above: Performed By: #### C BC ####[facility] Yxuubaabke5756 [place] [phone]. Garima Pulliam RBC 4.74 106/ul Normal 4.70-6.10 [facility] Comment on above: Performed By: #### C BC ####[facility] Z[address]pemhkr[address] [place], [place] [address]Dr. Garima Pulliam WBC 8.7 103/ul Normal 4.0-11.0 [facility] Comment on above: Performed By: #### C BC ####[facility] Oxhvnpnaev60[address] [place], [place] [address]Dr. Garima Pulliam Covid-19 PCR (CVDTB)on 12-25 SARS-CoV-2 [...] for this test is supported by the [place] of Health and Human Service's declaration that [...] #### C VDTBH ####[facility] Nybepermvo[address] [place] [address]Dr. Garima Pulliam PROF 14(COMP METB)on 023 Albumin [Mass/Vol] 3.6 g/dL Normal 3.4-5.0 [facility] [place] Comment on above: Performed By: #### C MP, BNP, HSTROPN ####[facility] Zkhegvnzxz5646 [place] [address]Dr. Garima Pulliam Albumin/Globulin [Mass ratio] 1.5 {ratio} Normal [facility] Comment on above: Performed By: #### C MP, BNP, HSTROPN ####[facility] Bjijjgglrv27[address] [place] [address]Dr. Garima Pulliam ALP [Catalytic activity/Vol] 79 U/L Normal 46-116 [facility] Comment on above: Performed By: #### C MP, BNP, HSTROPN ####[facility] Hkykullmwh2040 [place] [address]Dr. Garima Pulliam ALT [Catalytic activity/Vol] 27 U/L Normal 16-63 [facility] Comment on above: Performed By: #### C MP, BNP, HSTROPN ####[facility] Dmswxlptuh1241 [place] [address]Dr. Garima Pulliam Anion gap [Moles/Vol] 11.7 mmol/L Normal [facility] Comment on above: Performed By: #### C MP, BNP, HSTROPN ####[facility] Nuigbbhthq2640 [place] [address]Dr. Garima Pulliam AST [Catalytic activity/Vol] 21 U/L Normal 15-37 [facility] Comment on above: Performed By: #### C MP, BNP, HSTROPN ####[facility] Uhueaileff8399 [place] [address]Dr. Garima Pulliam Bilirubin [Mass/Vol] 0.3 mg/dL Normal 0.2-1.0 [facility] Comment on above: Performed By: #### C MP, BNP, HSTROPN ####[facility] Nfbyfxydjm3326 [place] [address]Dr. Garima Pulliam Calcium [Mass/Vol] 8.9 mg/dL Normal 8.5-10.1 [facility] [place] Comment on above: Performed By: #### C MP, BNP, HSTROPN ####[facility] Htpwerebaq4108 [place] [address]Dr. Garima Pulliam Chloride [Moles/Vol] 107 mmol/L Normal 98-107 [facility] Comment on above: Performed By: #### C MP, BNP, HSTROPN ####[facility] Sajokrowzg7417 [place] [address]Dr. Garima Pulliam CO2 [Moles/Vol] 26.0 mmol/L Normal 21.0-32.0 [facility] Comment on above: Performed By: #### C MP, BNP, HSTROPN ####[facility] Kshbxgimeo1864 [place] [address]Dr. Garima Pulliam Creatinine [Mass/Vol] 0.65 mg/dL Critically low 0.70-1.30 [facility] Comment on above: Performed By: #### C MP, BNP, HSTROPN ####[facility] Rgfbggrulq8713 [place] [address]Dr. Yilan Pulliam EGFR-AF ANGOLAN >60 Normal >=60 [facility] Comment on above: Performed By: #### C MP, BNP, HSTROPN ####[facility] Dsglbylhye4[address] [place] [address]Dr. Garima Pulliam EGFR-NON AF ANGOLAN >60 Normal >=60 [facility] Comment on above: Performed By: #### C MP, BNP, HSTROPN ####[facility] Tezyecslia[address]133 [place] [address]Dr. Garima Pulliam Globulin (S) [Mass/Vol] 2.4 g/dL Normal [facility] Comment on above: Performed By: #### C MP, BNP, HSTROPN ####[facility] Whhdvpejgv[address] [place], [place] [address]Dr. Garima Pulliam Glucose [Mass/Vol] 85 mg/dL Normal 74-106 [facility] Comment on above: Performed By: #### C MP, BNP, HSTROPN ####[facility] Gfqefdptwe4642 [place] [address]Dr. Garima Pulliam Potassium [Moles/Vol] 3.7 mmol/L Normal 3.5-5.1 [facility] Comment on above: Performed By: #### C MP, BNP, HSTROPN ####[facility] Xgllvyxcje6981 [place] [address]Dr. Garima Pulliam Protein [Mass/Vol] 6.0 g/dL Critically low 6.4-8.2 [facility] Comment on above: Performed By: #### C MP, BNP, HSTROPN ####[facility] Eyebljgibe65[address] [place] [address]Dr. Garima Pulliam Sodium [Moles/Vol] 141 mmol/L Normal 136-145 [facility] [place] Comment on above: Performed By: #### C MP, BNP, HSTROPN ####[facility] Usgnjfccuo1142 [place] [address]Dr. Garima Pulliam Urea nitrogen [Mass/Vol] 5.0 mg/dL Critically low 7.0-18.0 [facility] Comment on above: Performed By: #### C MP, BNP, HSTROPN ####[facility] Enmykxvzpu98[address] [place] [address]Dr. Garima Pulliam Urea nitrogen/Creatinine [Mass ratio] 7.7 mg/mg Normal [facility] Comment on above: Performed By: #### C MP, BNP, HSTROPN ####[facility] Jyxpyrolfb6806 [place] [address]Dr. Garima Pulliam PROTIMEon 01-12-2023 INR Coag (PPP) [Relative time] 1.16 {INR} Normal [facility] Comment on above: Performed By: #### P TT, PT ####[facility] Lkckvmbids8805 [place] [address]Dr. Garima Pulliam INR GUIDELINES SEE BELOW Normal [facility] Comment on above: Result Comment: WESLEY RED INR: 2.0 - 3.0 CONDITIONS NOT LISTED BELOW 2.5 - 3.5 FOR PROSTHETIC HEART VALVE REPLACEMENT 2.5 - 3.5 RECURRENT THROMBOSIS Performed By: #### P TT, PT ####[facility] Xuivkphhvi[address] [place], [place] [address]Dr. Garima Pulliam PT Coag (PPP) [Time] 12.2 s Critically high 9.0-11.6 [facility] Comment on above: Performed By: #### P TT, PT ####[facility] Fjhkuyvhdf1308 [place] [address]Dr. Garima Pulliam PTTon 01-12-2023 aPTT Coag (Bld) [Time] 29.1 s Normal 22.3-36.2 [facility] Comment on above: Performed By: #### P TT, PT ####[facility] Duzlwtbpbo[address] [place], [place] [address]Dr. Garima Pulliam TROPONIN, HIGH SENSITIVITYon 01-12-2023 HSTROP [...] [place] DIAGNOSIS. Performed By: #### H STROPN ####[facility] Ishwfismjv5130 [place] [address]Dr. Garima Pulliam HSTROP 9.2 pg/mL Normal 4.0-76.1 [facility] Comment on above: Result Comment: CUT- OFF POINTS HAVE BEEN ESTABLISHED BASED ON THE FOURTH UNIVERSAL DEFINITIONS OF MYOCARDIALINFARCTION. THE UPPER REFERENCE LIMIT (URL) OF TROPONIN, DEFINED THE 99TH PERCENTILE OFcTnI DISTRIBUTION IN A REFERENCE POPULATION, HAS BEEN CONFIRMED THE DECISION THRESHOLDFOR [place] DIAGNOSIS. Performed By: #### C MP, BNP, HSTROPN ####[facility] Yobvhjtxrm4280 [place] [address]Dr. Garima Pulliam XR CHEST 1 Von 01-12-2023 XR CHEST 1 V Normal [facility] XR CHEST 1 Von 01-01-2023 XR CHEST 1 V Normal [facility] CARDIAC NASH 3-6on 3 CK [Catalytic activity/Vol] 196 U/L Normal 39-308 [facility] Comment on above: Performed By: #### C MREP ####[facility] Jxfdrojiij9259 [place] [address]Dr. Garima Pulliam CK.MB [Mass/Vol] 7.41 ng/mL Critically high <=3.60 [facility] Comment on above: Performed By: #### C MREP ####[facility] Tiiqsgjtrq1061 [place] [address]Dr. Garima Pulliam HSTROP 10.3 pg/mL Normal 4.0-76.1 [facility] Comment on above: Result Comment: CUT- OFF POINTS HAVE BEEN ESTABLISHED BASED ON THE FOURTH UNIVERSAL DEFINITIONS OF MYOCARDIALINFARCTION. THE UPPER REFERENCE LIMIT (URL) OF TROPONIN, DEFINED THE 99TH PERCENTILE OFcTnI DISTRIBUTION IN A REFERENCE POPULATION, HAS BEEN CONFIRMED THE DECISION THRESHOLDFOR [place] DIAGNOSIS. Performed By: #### C MREP ####[facility] Yvaduyoejh9523 [place] [id number]. Garima Pulliam XR CHEST 1 Von 12-26-2022 XR CHEST 1 V Normal [facility] BNPon 12-25-2022 Natriuretic peptide B (Bld) [Mass/Vol] 98.0 pg/mL Normal <=900.0 [facility] Comment on above: Performed By: #### B MARVIN FRENCH CMADM ####[facility] Gelualhidi[address] [place] [address]Dr. Garima Pulliam CARDIAC NASH ADMITon 023 CK [Catalytic activity/Vol] 208 U/L Normal 39-308 [facility] Comment on above: Performed By: #### B MARVIN FRENCH CMADM ####[facility] Iiduijergg5289 [place] [address]Dr. Garima Pulliam CK.MB [Mass/Vol] 7.63 ng/mL Critically high <=3.60 [facility] Comment on above: Performed By: #### B MARVIN FRENCH CMADM ####[facility] Gpofdvdckg[address] [place], [place] [address]Dr. Garima Pulliam HSTROP 8.8 pg/mL Normal 4.0-76.1 [...] MARVIN FRENCH CMADM ####[facility] Grlaoyqwpw9[address] [place], [place] [address]Dr. Garima Pulliam DORIS 83 ng/mL Normal 16-96 [facility] Comment on above: Performed By: #### B MARVIN FRENCH CMADM ####[facility] Ebnxrqosid86[address] [place], [place] [address]Dr. Garima Pulliam CBC AUTO DIFFon 12-25-2022 BASO # 0.0 103/ul Normal 0.0-0.1 [facility] Comment on above: Performed By: #### C BC ####[facility] Fujlaqcehe711[address] [place], [place] [address]Dr. Garima Pulliam Basophils/100 WBC (Bld) 0.0 % Critically low 0.2-2.0 [facility] Comment on above: Performed By: #### C BC ####[facility] Nanbeqmmob2454 [place] [address]Dr. Garima Pulliam EO # 0.0 103/ul Normal 0.0-0.7 [facility] Comment on above: Performed By: #### C BC ####[facility] Bocllynczd37[address] [place], [place] [address]Dr. Garima Pulliam Eosinophils/100 WBC (Bld) 0.7 % Critically low 0.9-7.0 [facility] Comment on above: Performed By: #### C BC ####[facility] Skbgiargvj090[address] [place], [place] [address]Dr. Garima Pulliam Erythrocyte distribution width (RBC) [Ratio] 13.4 % Normal 11.0-15.0 [facility] Comment on above: Performed By: #### C BC ####[facility] Yrpmpjtbew386[address] [place], [place] [address]Dr. Garima Pulliam Hematocrit (Bld) [Volume fraction] 42.9 % Normal 42.0-54.0 [facility] Comment on above: Performed By: #### C BC ####[facility] Xakuqjlbch367[address] [place], [place] [address]Dr. Garima Pulliam Hemoglobin (Bld) [Mass/Vol] 14.4 g/dL Normal 14.0-18.0 [facility] Comment on above: Performed By: #### C BC ####[facility] Jgjjnawiml[address] [place], [place] [address]Dr. Garima Pulliam IG # 0.00 10e3/ul Normal 0.00-0.03 [facility] Comment on above: Performed By: #### C BC ####[facility] Wauvwgnulc[address] [place], [place] [address]Dr. Garima Pulliam IG % 0.0 % Normal 0.0-0.5 [facility] Comment on above: Performed By: #### C BC ####[facility] Wrsdcixyfx[address] [place], [place] [address]Dr. Garima Pulliam LYMPH # 2.4 103/ul Normal 1.2-3.8 [facility] Comment on above: Performed By: #### C BC ####[facility] Ppuchmanix7830 [place] [id number]. Chapisrenu Pulliam Lymphocytes/100 WBC (Bld) 29.2 % Normal 20.5-60.0 [facility] Comment on above: Performed By: #### C BC ####[facility] Nniuesckun5660 [place] [phone]. Garima Pulliam MANUAL DIFF REQ NO Normal [facility] Comment on above: Performed By: #### C BC ####[facility] Egbfwegwld3119 [place] [phone]. Garima Pulliam MCH (RBC) [Entitic mass] 30.7 pg Normal 25.9-34.0 [facility] Comment on above: Performed By: #### C BC ####[facility] Rbzhkpbjdq180[address] [place], [place] [address]Dr. Garima Pulliam MCHC (RBC) [Mass/Vol] 33.6 g/dL Normal 29.9-35.2 [facility] Comment on above: Performed By: #### C BC ####[facility] Efsdbropnx[address] [place], [place] [address]Dr. Garima Pulliam MCV (RBC) [Entitic vol] 91.5 fL Normal 80.0-94.0 [facility] Comment on above: Performed By: #### C BC ####[facility] Toeqvmucmi253[address] [place], [place] [address]Dr. Garima Pulliam MONO # 0.0 103/ul Critically low 0.3-0.8 [facility] Comment on above: Performed By: #### C BC ####[facility] Xoxvtkscug0954 [place] [address]Dr. Garima Pulliam Monocytes/100 WBC (Bld) 8.0 % Normal 1.7-12.0 [facility] Comment on above: Performed By: #### C BC ####[facility] Acdwvvpxcc98[address] [place], [place] [address]Dr. Garima Pulliam NEUT # 5.1 103/ul Normal 1.4-6.5 [facility] Comment on above: Performed By: #### C BC ####[facility] Oofoyyuntj2489 [place], [place] [address]Yq. Garima Pulliam Neutrophils/100 WBC (Bld) 62.8 % Normal 43.0-75.0 [facility] Comment on above: Performed By: #### C BC ####[facility] Zkubzhkzub2288 [place], [place] [address]Vr. Garima Pulliam Platelet mean volume (Bld) [Entitic vol] 8.6 fL Critically low 9.5-13.5 [facility] Comment on above: Performed By: #### C BC ####[facility] Zqsvinizze3456 [place] [id number]. Garima Pulliam PLT 200 103/ul Normal 150-450 [facility] Comment on above: Performed By: #### C BC ####[facility] Kaordmjdkh6445 [place] [phone]. Garima Pulliam RBC 4.69 106/ul Critically low 4.70-6.10 [facility] Comment on above: Performed By: #### C BC ####[facility] Cowtgmatoe2204 [place], [place] [address]Kt. Garima Pulliam WBC 8.2 103/ul Normal 4.0-11.0 [facility] Comment on above: Performed By: #### C BC ####[facility] Fngqrgmzmt8363 [place], [place] [address]Qk. Garima Pulliam Covid-19 PCR ([facility])on SARS-CoV-2 (COVID-19) RNA MARIE+probe Ql [...] for this test is supported by the [place] of Health and Human Service's declaration that [...] #### C VDTBH ####[facility] Udetvwkixa[address] [place], [place] [address]Dr. Garima Pulliam INFLUENZA A AND B AGon 12-25 INFLUANEGH SEE BELOW Normal [facility] Comment on above: Result Comment: Nega tive for Flu A protein angiten. Infection due to Flu A cannot be ruled out. Flu A angiten in the sample may be below the detection limit of the test. Performed By: #### I NFLUAB ####[facility] Zougrlhohk[address] [place], [place] [address]Dr. Garima Pulliam INFLUBNEGH SEE BELOW Normal [facility] Comment on above: Result Comment: Nega tive for Flu B protein antigen. Infection due to Flu B cannot be ruled out. Flu B antigen in the sample may be below the detection limit of the test. Performed By: #### I NFLUAB ####[facility] Ugdidvjjgb[address] [place], [place] [address]Dr. Garima Pulliam INFLUENZA A AG Negative Normal NEGATIVE SEE COMMENT [facility] Comment on above: Performed By: #### I NFLUAB ####[facility] Jkjhqbeanx67[address] [place], [place] [address]Dr. renu [facility] INFLUENZA B AG Negative Normal NEGATIVE SEE COMMENT [facility] Comment on above: Performed By: #### I NFLUAB ####[facility] Pnwwxjrvwk[address] [place], [place] [address]Dr. Garima Pulliam PROF CHEM 8 (BAS METB)on Anion gap [Moles/Vol] 11.1 mmol/L Normal [facility] Comment on above: Performed By: #### B SALES APPRENTICE, BMP, CMADM ####[facility] Rwklbhzfaa[address] [place], [place] [address]Dr. Garima Pulliam Calcium [Mass/Vol] 8.5 mg/dL Normal 8.5-10.1 [facility] Comment on above: Performed By: #### B SALES APPRENTICE, MARVIN, CMADM ####[facility] Gbsx[address]swfqv[address] [place] [id number]. Garima Pulliam Chloride [Moles/Vol] 106 mmol/L Normal 98-107 [facility] Comment on above: Performed By: #### B SALES APPRENTICE, BMP, CMADM ####[facility] Ajfbwjumzm[address] [place] [address]Dr. Garima Pulliam CO2 [Moles/Vol] 27.4 mmol/L Normal 21.0-32.0 [facility] Comment on above: Performed By: #### B SALES APPRENTICE, MARVIN, CMADM ####[facility] Gjkbttaxqi0970 [place] [address]Dr. Garima Pulliam Creatinine [Mass/Vol] 0.65 mg/dL Critically low 0.70-1.30 [facility] Comment on above: Performed By: #### B SALES APPRENTICE, MARVIN, CMADM ####[facility] Jbwjyxmoyh9768 [place] [address]Dr. Garima Pulliam EGFR-AF ANGOLAN >60 Normal >=60 [facility] Comment on above: Performed By: #### B SALES APPRENTICE, BMP, CMADM ####[facility] Cgtbstablj6135 [place] [address]Dr. Garima Pulliam EGFR-NON AF ANGOLAN >60 Normal >=60 [facility] Comment on above: Performed By: #### B SALES APPRENTICE, BMP, CMADM ####[facility] Dkrcrefczx5435 [place] [address]Dr. Garima Pulliam Glucose [Mass/Vol] 140 mg/dL Critically high 74-106 [facility] Comment on above: Performed By: #### B SALES APPRENTICE, BMP, CMADM ####[facility] Lwlncnnwbd0903 [place] [address]Dr. Garima Pulliam Potassium [Moles/Vol] 3.5 mmol/L Normal 3.5-5.1 [facility] Comment on above: Performed By: #### B SALES APPRENTICE, BMP, CMADM ####[facility] Ufzpalhsxp1456 [place] [address]Dr. Garima Pulliam Sodium [Moles/Vol] 141 mmol/L Normal 136-145 [facility] Comment on above: Performed By: #### B SALES APPRENTICE, BMP, CMADM ####[facility] Vrxhkodhah1188 [place] [address]Dr. Garima Pulliam Urea nitrogen [Mass/Vol] 8.0 mg/dL Normal 7.0-18.0 [facility] Comment on above: Performed By: #### B SALES APPRENTICE, BMP, CMADM ####[facility] Mmiqvsguly5536 [place] [address]Dr. Garima Pulliam Urea nitrogen/Creatinine [Mass ratio] 12.3 mg/mg Normal [facility] Comment on above: Performed By: #### B SALES APPRENTICE, BMP, CMADM ####[facility] Cuuarxmvqd685[address] [place], [place] [address]Dr. Garima Pulliam CARDIAC NASH ADMITon 023 CK [Catalytic activity/Vol] 165 U/L Normal 39-308 [facility] Comment on above: Performed By: #### B DAVID, CMADM ####[facility] Uvkhjzexig[address] [place], [place] [address]Dr. Garima Pulliam CK.MB [Mass/Vol] 6.48 ng/mL Critically high <=3.60 [facility] Comment on above: Performed By: #### B MP, CMADM ####[facility] Ftqwxlicfs7[address] [place], [place] [address]Dr. Garima Pulliam HSTROP 11.7 pg/mL Normal 4.0-76.1 [facility] Comment on above: Result Comment: CUT- OFF POINTS HAVE BEEN ESTABLISHED BASED ON THE FOURTH UNIVERSAL DEFINITIONS OF MYOCARDIALINFARCTION. THE UPPER REFERENCE LIMIT (URL) OF TROPONIN, DEFINED THE 99TH PERCENTILE OFcTnI DISTRIBUTION IN A REFERENCE POPULATION, HAS BEEN CONFIRMED THE DECISION THRESHOLDFOR [place] DIAGNOSIS. Performed By: #### B MP, CMADM ####[facility] Rwtxfdqgjt58[address] [place], [place] [address]Dr. Garima Pulliam DORIS 83 ng/mL Normal 16-96 [facility] Comment on above: Performed By: #### B MP, CMADM ####[facility] Zocrdsomhc4044 [place] [address]Dr. Garima Pulliam CBC AUTO DIFFon 12-10-2022 BASO # 0.0 103/ul Normal 0.0-0.1 [facility] Comment on above: Performed By: #### C BC ####[facility] Bhhdckbjdi218[address] [place], [place] [address]Dr. Garima Heraclio Basophils/100 WBC (Bld) 0.3 % Normal 0.2-2.0 [facility] Comment on above: Performed By: #### C BC ####[facility] Iapgiwkgqj1416[address] [place], [place] [address]Dr. Garima Pulliam EO # 0.1 103/ul Normal 0.0-0.7 [facility] Comment on above: Performed By: #### C BC ####[facility] Sivjjshqkk[address] [place], [place] [address]Dr. Garima Pulliam Eosinophils/100 WBC (Bld) 0.4 % Critically low 0.9-7.0 [facility] Comment on above: Performed By: #### C BC ####[facility] Ubfoknybko[address] [place], [place] [address]Dr. Garima Pulliam Erythrocyte distribution width (RBC) [Ratio] 13.2 % Normal 11.0-15.0 [facility] Comment on above: Performed By: #### C BC ####[facility] Nigtnyeids[address] [place], [place] [address]Dr. Garima Pulliam Hematocrit (Bld) [Volume fraction] 42.4 % Normal 42.0-54.0 [facility] Comment on above: Performed By: #### C BC ####[facility] Ryewishyay524[address] [place], [place] [address]Dr. Garima Pulliam Hemoglobin (Bld) [Mass/Vol] 14.4 g/dL Normal 14.0-18.0 [facility] Comment on above: Performed By: #### C BC ####[facility] Bvhwotrxqi1273 [place] [id number]. Garima Heraclio IG # 0.05 10e3/ul Critically high 0.00-0.03 [facility] Comment on above: Performed By: #### C BC ####[facility] Znkwskwqrp4492 [place] [address]Dr. Garima Heraclio IG % 0.4 % Normal 0.0-0.5 [facility] Comment on above: Performed By: #### C BC ####[facility] Zqgoancdoh312[address] [place], [place] [address]Dr. Garima Pulliam LYMPH # 0.8 103/ul Critically low 1.2-3.8 [facility] Comment on above: Performed By: #### C BC ####[facility] Dfysphloni856[address] [place], [place] [address]Dr. Chapisrenu Pulliam Lymphocytes/100 WBC (Bld) 6.5 % Critically low 20.5-60.0 [facility] Comment on above: Performed By: #### C BC ####[facility] Pdcutvlqzp7[address] [place], [place] [address]Dr. Chapisrenu Pulliam MANUAL DIFF REQ NO Normal [facility] Comment on above: Performed By: #### C BC ####[facility] Ldkslvcvka[address] [place], [place] [address]DrAdalberto Garima Pulliam MCH (RBC) [Entitic mass] 30.5 pg Normal 25.9-34.0 [facility] Comment on above: Performed By: #### C BC ####[facility] Vohqtnkzio[address] [place], [place] [address]DrAdalberto Garima Heraclio MCHC (RBC) [Mass/Vol] 34.0 g/dL Normal 29.9-35.2 [facility] Comment on above: Performed By: #### C BC ####[facility] Cgdekuesvz[address] [place], [place] [address]DrAdalberto Garima Heraclio MCV (RBC) [Entitic vol] 89.8 fL Normal 80.0-94.0 [facility] Comment on above: Performed By: #### C BC ####[facility] Nvuobmkhts[address] [place], [place] [address]Dr. Garima Pulliam MONO # 0.2 103/ul Critically low 0.3-0.8 [facility] Comment on above: Performed By: #### C BC ####[facility] Banjvchzxl6375 [place] [id number]. Garima Pulliam Monocytes/100 WBC (Bld) 2.0 % Normal 1.7-12.0 [facility] Comment on above: Performed By: #### C BC ####[facility] Bdecayxnzb1904 [place] [address]Dr. Chapisrenu Heraclio NEUT # 10.5 103/ul Critically high 1.4-6.5 [facility] Comment on above: Performed By: #### C BC ####[facility] Kbqmmfecjv0349 [place] [address]Dr. Garima Pulliam Neutrophils/100 WBC (Bld) 90.4 % Critically high 43.0-75.0 [facility] Comment on above: Performed By: #### C BC ####[facility] Yplkqhpvio5335 [place] [address]Dr. Garima Pulliam Platelet mean volume (Bld) [Entitic vol] 9.4 fL Critically low 9.5-13.5 [facility] Comment on above: Performed By: #### C BC ####[facility] Yiertkqzio9485 [place] [address]Dr. Garima Pulliam PLT 198 103/ul Normal 150-450 [facility] Comment on above: Performed By: #### C BC ####[facility] Fxaseegjvl7624 [place] [address]Dr. Garima Pulliam RBC 4.72 106/ul Normal 4.70-6.10 [facility] Comment on above: Performed By: #### C BC ####[facility] Cxjtikzzzs4125 [place] [id number]. Garima Pulliam WBC 11.6 103/ul Critically high 4.0-11.0 [facility] Comment on above: Performed By: #### C BC ####[facility] Bbgogbyudt8307 [place] [address]DrAdalberto Pulliam PROF CHEM 8 (BAS METB)on Anion gap [Moles/Vol] 11.3 mmol/L Normal Th [facility] Comment on above: Performed By: #### B NANCY HERNANDEZ ####[facility] Dxoxirczkj6459 [place] [address]Dr. Garima Pulliam Calcium [Mass/Vol] 8.9 mg/dL Normal 8.5-10.1 [facility] Comment on above: Performed By: #### B NANCY HERNANDEZ ####[facility] Eppalzdhnv5299 [place] [address]Dr. Garima Pulliam Chloride [Moles/Vol] 103 mmol/L Normal 98-107 [facility] Comment on above: Performed By: #### B NANCY HERNANDEZ ####[facility] Mxfrfwckmi[address] [place], [place] [address]Dr. Garima Pulliam CO2 [Moles/Vol] 28.2 mmol/L Normal 21.0-32.0 [facility] Comment on above: Performed By: #### NANCY Larkin MP ####[facility] Ifuhpnoiag0610 [place] [address]Dr. Chapisrenu Pulliam Creatinine [Mass/Vol] 0.60 mg/dL Critically low 0.70-1.30 [facility] Comment on above: Performed By: #### NANCY Larkin MP ####[facility] Wyiwiaqhzg7393 [place] [address]Dr. Garima Pulliam EGFR-AF ANGOLAN >60 Normal >=60 [facility] Comment on above: Performed By: #### NANCY Larkin MP ####[facility] Jfrwkgreix8759 [place] [address]Dr. Garima Pulliam EGFR-NON AF ANGOLAN >60 Normal >=60 [facility] Comment on above: Performed By: #### NANCY Larkin MP ####[facility] Hlkefpgome[address] [place], [place] [address]Dr. Garima Pulliam Glucose [Mass/Vol] 166 mg/dL Critically high 74-106 [facility] Comment on above: Performed By: #### B MP, CMADM ####[facility] Drrkvbcnku4610 [place] [address]Dr. Garima Pulliam Potassium [Moles/Vol] 3.5 mmol/L Normal 3.5-5.1 [facility] Comment on above: Performed By: #### B MP, CMADM ####[facility] Loadrbcpfx8735 [place] [address]Dr. Garima Pulliam Sodium [Moles/Vol] 139 mmol/L Normal 136-145 [facility] Comment on above: Performed By: #### B DAVID, CMADM ####[facility] Npiknrxudy9932 [place] [address]Dr. Garima Heraclio Urea nitrogen [Mass/Vol] 9.0 mg/dL Normal 7.0-18.0 [facility] Comment on above: Performed By: #### B DAVID, NANCY ####[facility] Qurksftoiy[address] [place], [place] [address]Dr. Garima Heraclio Urea nitrogen/Creatinine [Mass ratio] 15.0 mg/mg Normal [facility] Comment on above: Performed By: #### B DAVID, CMAANA ROSA ####[facility] Qtleyiezwp966[address] [place], [place] [address]Dr. Garima Pulliam XR CHEST 1 Von 12-10-2022 XR CHEST 1 V Normal [facility] BNPon 11-27-2022 Natriuretic peptide B (Bld) [Mass/Vol] 95.0 pg/mL Normal <=900.0 [facility] Comment on above: Performed By: #### C MP, HSTROPN, BNP ####[facility] Ftakxcxebp[address] [place], [place] [address]Dr. Garima Heraclio CBC AUTO DIFFon 11-27-2022 BASO # 0.0 103/ul Normal 0.0-0.1 [facility] Comment on above: Performed By: #### C BC ####[facility] Ugfagplyly310[address] [place], [place] [address]Dr. Garima Heraclio Basophils/100 WBC (Bld) 0.2 % Normal 0.2-2.0 [facility] Comment on above: Performed By: #### C BC ####[facility] Tsvsfatvfo3741 [place] [id number]. Garima Pulliam EO # 0.2 103/ul Normal 0.0-0.7 [facility] Comment on above: Performed By: #### C BC ####[facility] Svrtpmdaqg9377 [place] [id number]. Garima Pulliam Eosinophils/100 WBC (Bld) 2.0 % Normal 0.9-7.0 [facility] Comment on above: Performed By: #### C BC ####[facility] Tqqnysgjmo[address] [place], [place] [address]Dr. Garima Pulliam Erythrocyte distribution width (RBC) [Ratio] 13.2 % Normal 11.0-15.0 [facility] Comment on above: Performed By: #### C BC ####[facility] Aptiioydaq74[address] [place], [place] [address]Dr. Garima Pulliam Hematocrit (Bld) [Volume fraction] 42.4 % Normal 42.0-54.0 [facility] Comment on above: Performed By: #### C BC ####[facility] Tdxchkajsy[address] [place], [place] [address]Dr. Garima Pulliam Hemoglobin (Bld) [Mass/Vol] 14.4 g/dL Normal 14.0-18.0 [facility] Comment on above: Performed By: #### C BC ####[facility] Gqudgeurki237[address] [place], [place] [address]Dr. Garima Pulliam IG # 0.04 10e3/ul Critically high 0.00-0.03 [facility] Comment on above: Performed By: #### C BC ####[facility] Euwbmurhgy[address] [place], [place] [address]Dr. Garima Pulliam IG % 0.4 % Normal 0.0-0.5 [facility] Comment on above: Performed By: #### C BC ####[facility] Ubjbjsiryv616[address] [place], [place] [address]Dr. Garima Pulliam LYMPH # 2.2 103/ul Normal 1.2-3.8 [facility] Comment on above: Performed By: #### C BC ####[facility] Lhjsinotlx9372 [place] [phone]. Garima Pulliam Lymphocytes/100 WBC (Bld) 21.5 % Normal 20.5-60.0 [facility] Comment on above: Performed By: #### C BC ####[facility] Okcbofcgcf4508 [place] [id number]. Garima Heraclio MANUAL DIFF REQ NO Normal [facility] Comment on above: Performed By: #### C BC ####[facility] Wjvvnmujwk5584 [place] [phone]. Garima Heraclio MCH (RBC) [Entitic mass] 30.4 pg Normal 25.9-34.0 [facility] Comment on above: Performed By: #### C BC ####[facility] Gfigfkssqd7582 [place] [address]Dr. Garima Heraclio MCHC (RBC) [Mass/Vol] 34.0 g/dL Normal 29.9-35.2 [facility] Comment on above: Performed By: #### C BC ####[facility] Ubnxnzbnad5250 [place] [phone]. Garima Pulliam MCV (RBC) [Entitic vol] 89.6 fL Normal 80.0-94.0 [facility] Comment on above: Performed By: #### C BC ####[facility] Cbzijrsujz5292 [place] [phone]. Garima Pulliam MONO # 0.8 103/ul Normal 0.3-0.8 [facility] Comment on above: Performed By: #### C BC ####[facility] Cqbizjngog5064 [place] [phone]. Chapisrenu Pulliam Monocytes/100 WBC (Bld) 7.7 % Normal 1.7-12.0 [facility] Comment on above: Performed By: #### C BC ####[facility] Acxhvcatee186[address] [place], [place] [address]Dr. Garima Pulliam NEUT # 7.0 103/ul Critically high 1.4-6.5 [facility] Comment on above: Performed By: #### C BC ####[facility] Grucatydan3092 [place] [id number]. Garima Pulliam Neutrophils/100 WBC (Bld) 68.2 % Normal 43.0-75.0 [facility] Comment on above: Performed By: #### C BC ####[facility] Fmsiyomlyc6597 [place] [phone]. Chapisrenu Pulliam Platelet mean volume (Bld) [Entitic vol] 8.9 fL Critically low 9.5-13.5 [facility] Comment on above: Performed By: #### C BC ####[facility] Kzkerkxvqe4458 [place] [address]Dr. Garima Pulliam PLT 222 103/ul Normal 150-450 [facility] Comment on above: Performed By: #### C BC ####[facility] Axpxmvsckn9463 [place] [address]Dr. Garima Pulliam RBC 4.73 106/ul Normal 4.70-6.10 [facility] Comment on above: Performed By: #### C BC ####[facility] Pwhlwoasam3343 [place] [address]Dr. Garima Pulliam WBC 10.3 103/ul Normal 4.0-11.0 [facility] Comment on above: Performed By: #### C BC ####[facility] Uabmbdkpwq0340 [place] [address]Dr. Garima Pulliam PROF 14(COMP METB)on 023 Albumin [Mass/Vol] 3.7 g/dL Normal 3.4-5.0 [facility] Comment on above: Performed By: #### C MP, HSTROPN, BNP ####[facility] Wdjwfutizt3052 [place] [address]Dr. Chapisrenu Pulliam Albumin/Globulin [Mass ratio] 1.5 {ratio} Normal [facility] Comment on above: Performed By: #### C MP, HSTROPN, BNP ####[facility] Kzakezsfeh3105 [place] [address]Dr. Garima Pulliam ALP [Catalytic activity/Vol] 79 U/L Normal 46-116 [facility] Comment on above: Performed By: #### C MP, HSTROPN, BNP ####[facility] Tamuykhato1266 [place] [address]Dr. Garima Pulliam ALT [Catalytic activity/Vol] 32 U/L Normal 16-63 [facility] Comment on above: Performed By: #### C MP, HSTROPN, BNP ####[facility] Typvusmbgg2763 [place] [address]Dr. Garima Pulliam Anion gap [Moles/Vol] 9.5 mmol/L Normal [facility] Comment on above: Performed By: #### C MP, HSTROPN, BNP ####[facility] Cbkqrufcjq[address] [place], [place] [address]Dr. Garima Pulliam AST [Catalytic activity/Vol] 25 U/L Normal 15-37 [facility] Comment on above: Performed By: #### C MP, HSTROPN, BNP ####[facility] Zqzgxxcppd[address] [place], [place] [address]Dr. Chapislan Pulliam Bilirubin [Mass/Vol] 0.4 mg/dL Normal 0.2-1.0 [facility] Comment on above: Performed By: #### C MP, HSTROPN, BNP ####[facility] Sxolotlqsj[address] [place], [place] [address]Dr. Garima Pulliam Calcium [Mass/Vol] 8.9 mg/dL Normal 8.5-10.1 [facility] Comment on above: Performed By: #### C MP, HSTROPN, BNP ####[facility] Gpdidtbtmc[address] [place], [place] [address]Dr. Chapislan Pulliam Chloride [Moles/Vol] 103 mmol/L Normal 98-107 [facility] Comment on above: Performed By: #### C MP, HSTROPN, BNP ####[facility] Cbmugwvdbq[address] [place], [place] [address]Dr. Yilan Pulliam CO2 [Moles/Vol] 28.6 mmol/L Normal 21.0-32.0 [facility] Comment on above: Performed By: #### C MP, HSTROPN, BNP ####[facility] Qudmbjcwug4687 [place] [address]Dr. Garima Pulliam Creatinine [Mass/Vol] 0.72 mg/dL Normal 0.70-1.30 [facility] Comment on above: Performed By: #### C MP, HSTROPN, BNP ####[facility] Bzupitdoel68[address] [place] [address]Dr. Garima Pulliam EGFR-AF ANGOLAN >60 Normal >=60 [facility] Comment on above: Performed By: #### C MP, HSTROPN, BNP ####[facility] Xzlvnbrdzd1326 [place] [address]Dr. Garima Pulliam EGFR-NON AF ANGOLAN >60 Normal >=60 [facility] Comment on above: Performed By: #### C MP, HSTROPN, BNP ####[facility] Uomclifvun9691 [place] [address]Dr. Garima Pulliam Globulin (S) [Mass/Vol] 2.5 g/dL Normal [facility] Comment on above: Performed By: #### C MP, HSTROPN, BNP ####[facility] Jrvpujbiaq508[address] [place], [place] [address]Dr. Garima Pulliam Glucose [Mass/Vol] 114 mg/dL Critically high 74-106 [facility] Comment on above: Performed By: #### C MP, HSTROPN, BNP ####[facility] Dbcmlzipbn[address] [place], [place] [address]Dr. Garima Pulliam Potassium [Moles/Vol] 4.1 mmol/L Normal 3.5-5.1 [facility] Comment on above: Performed By: #### C MP, HSTROPN, BNP ####[facility] Gljyikmzer7[address] [place], [place] [address]Dr. Garima Pulliam Protein [Mass/Vol] 6.2 g/dL Critically low 6.4-8.2 [facility] Comment on above: Performed By: #### C MP, HSTROPN, BNP ####[facility] Zjkzztjbkb[address] [place], [place] [address]Dr. Yilan Pulliam Sodium [Moles/Vol] 137 mmol/L Normal 136-145 [facility] Comment on above: Performed By: #### C MP, HSTROPN, BNP ####[facility] Csjjspzcnm8961 [place] [address]Dr. Garima Pulliam Urea nitrogen [Mass/Vol] 13.0 mg/dL Normal 7.0-18.0 [facility] Comment on above: Performed By: #### C MP, HSTROPN, BNP ####[facility] Pzvyexkwfh5096 [place] [address]Dr. Garima Pulliam Urea nitrogen/Creatinine [Mass ratio] 18.1 mg/mg Normal [facility] Comment on above: Performed By: #### C MP, HSTROPN, BNP ####[facility] Muxipwiehy[address] [place], [place] [address]Dr. Garima Pulliam TROPONIN, HIGH SENSITIVITYon 11-27-2022 HSTROP 11.8 pg/mL Normal 4.0-76.1 [facility] Comment on above: Result Comment: CUT- OFF POINTS HAVE BEEN ESTABLISHED BASED ON THE FOURTH UNIVERSAL DEFINITIONS OF MYOCARDIALINFARCTION. THE UPPER REFERENCE LIMIT (URL) OF TROPONIN, DEFINED THE 99TH PERCENTILE OFcTnI DISTRIBUTION IN A REFERENCE POPULATION, HAS BEEN CONFIRMED THE DECISION THRESHOLDFOR [place] DIAGNOSIS. Performed By: #### C MP, HSTROPN, BNP ####[facility] Eowuzymvcg[address] [place], [place] [address]Dr. Garima Pulliam XR CHEST 1 Von 11-27-2022 XR CHEST 1 V Normal [facility] BNPon 11-20-2022 Natriuretic peptide B (Bld) [Mass/Vol] 73.0 pg/mL Normal <=900.0 [facility] Comment on above: Performed By: #### B MP, HSTROPN, BNP ####[facility] Smfdnobpdt[address] [address] [place], [place] [address]Dr. Garima Pulliam CBC AUTO DIFFon 11-20-2022 BASO # 0.0 103/ul Normal 0.0-0.1 [facility] Comment on above: Performed By: #### C BC ####[facility] Oximdfpdiz[address] [place] [id number]. Garima Pulliam Basophils/100 WBC (Bld) 0.3 % Normal 0.2-2.0 [facility] Comment on above: Performed By: #### C BC ####[facility] Iziuexobvu[address] [place] [id number]. Garima Pulliam EO # 0.2 103/ul Normal 0.0-0.7 [facility] Comment on above: Performed By: #### C BC ####[facility] Bvbuxyagji[address] [place] [address]Dr. Garima Pulliam Eosinophils/100 WBC (Bld) 2.1 % Normal 0.9-7.0 [facility] Comment on above: Performed By: #### C BC ####[facility] Dfgnmyorrc[address] [place], [place] [address]Dr. Garima Pulliam Erythrocyte distribution width (RBC) [Ratio] 13.2 % Normal 11.0-15.0 [facility] Comment on above: Performed By: #### C BC ####[facility] Pyopmatnnp[address] [place], [place] [address]Dr. Garima Pulliam Hematocrit (Bld) [Volume fraction] 43.4 % Normal 42.0-54.0 [facility] Comment on above: Performed By: #### C BC ####[facility] [address]fs[address] [place], [place] [address]Dr. Garima Pulliam Hemoglobin (Bld) [Mass/Vol] 14.6 g/dL Normal 14.0-18.0 [facility] Comment on above: Performed By: #### C BC ####[facility] Hyyrwrnpoz[address] [place] [id number]. Garima Pulliam IG # 0.02 10e3/ul Normal 0.00-0.03 [facility] Comment on above: Performed By: #### C BC ####[facility] Wiaviocnyj[address] [place] [address]Dr. Garima Pulliam IG % 0.2 % Normal 0.0-0.5 [facility] Comment on above: Performed By: #### C BC ####[facility] Jhznzpabhj8[address] [place] [phone]. Garima Heraclio LYMPH # 2.1 103/ul Normal 1.2-3.8 [facility] Comment on above: Performed By: #### C BC ####[facility] Mceekskqwo7[address] [place] [phone]. Garima Heraclio Lymphocytes/100 WBC (Bld) 19.2 % Critically low 20.5-60.0 [facility] Comment on above: Performed By: #### C BC ####[facility] Kojryczdus[address] [place] [phone]. Chapisrenu Pulliam MANUAL DIFF REQ NO Normal [facility] Comment on above: Performed By: #### C BC ####[facility] Tkxgsgexpg3039 [place] [phone]. Garima Heraclio MCH (RBC) [Entitic mass] 30.4 pg Normal 25.9-34.0 [facility] Comment on above: Performed By: #### C BC ####[facility] Xkzrggpioe73[address] [place] [address]Dr. Garima Pulliam MCHC (RBC) [Mass/Vol] 33.6 g/dL Normal 29.9-35.2 [facility] Comment on above: Performed By: #### C BC ####[facility] Uncfvkqjpb0231 [place] [phone]. Garima Heraclio MCV (RBC) [Entitic vol] 90.4 fL Normal 80.0-94.0 [facility] Comment on above: Performed By: #### C BC ####[facility] Jmksrldrgq[address] [place] [phone]. Garima Heraclio MONO # 0.6 103/ul Normal 0.3-0.8 [facility] Comment on above: Performed By: #### C BC ####[facility] Efoifsvflj0467 [place] [address]Dr. Garima Heraclio Monocytes/100 WBC (Bld) 5.8 % Normal 1.7-12.0 [facility] Comment on above: Performed By: #### C BC ####[facility] Pyahkpkxgw2696 [place], [place] [address]Ar. Garima Pulliam NEUT # 7.8 103/ul Critically high 1.4-6.5 [facility] Comment on above: Performed By: #### C BC ####[facility] Hxvettfvzf8[address] [place] [phone]. Garima Pulliam Neutrophils/100 WBC (Bld) 72.4 % Normal 43.0-75.0 [facility] Comment on above: Performed By: #### C BC ####[facility] Amqepkqpjj99[address] [place] [phone]. Garima Pulliam Platelet mean volume (Bld) [Entitic vol] 8.7 fL Critically low 9.5-13.5 [facility] Comment on above: Performed By: #### C BC ####[facility] Txunjpnlcg6293 [place] [phone]. Garima Pulliam PLT 184 103/ul Normal 150-450 [facility] Comment on above: Performed By: #### C BC ####[facility] Hzyrtjwbcb8300 [place], [place] [address]Ju. Garima Pulliam RBC 4.80 106/ul Normal 4.70-6.10 [facility] Comment on above: Performed By: #### C BC ####[facility] Qvtiyxeaoc3527 [place] [phone]. Garima Pulliam WBC 10.8 103/ul Normal 4.0-11.0 [facility] Comment on above: Performed By: #### C BC ####[facility] Nnsjmkxhxl1427 [place] [phone]. Garima Pulliam Covid-19 PCR ([facility]on 10-24 SARS-CoV-2 (COVID-19) RNA MARIE+probe [...] for this test is supported by the [place] of Health and Human Service's declaration that [...] #### C VDTBH ####[facility] Guaemlqblc[address] [place], [place] [address]Dr. Garima Pulliam INFLUENZA A AND B AGon 11-20 [facility] SEE BELOW Normal [facility] Comment on above: Result Comment: Nega tive for Flu A protein angiten. Infection due to Flu A cannot be ruled out. Flu A angiten in the sample may be below the detection limit of the test. Performed By: #### I NFLUAB ####[facility] Ohjjyrkknz24[address] [place], [place] [address]Dr. Garima Pulliam INFLUBNEGH SEE BELOW Normal [facility] Comment on above: Result Comment: Nega tive for Flu B protein antigen. Infection due to Flu B cannot be ruled out. Flu B antigen in the sample may be below the detection limit of the test. Performed By: #### I NFLUAB ####[facility] Lwwpyackcz[address] [place], [place] [address]Dr. Garima Pulliam INFLUENZA A AG Negative Normal NEGATIVE SEE COMMENT [facility] Comment on above: Performed By: #### I NFLUAB ####[facility] Tpyhbvxzoz727[address] [place], [place] [address]Dr. Garima [facility] INFLUENZA B AG Negative Normal NEGATIVE SEE COMMENT [facility] Comment on above: Performed By: #### I NFLUAB ####[facility] Fvgtieujmr50[address] [place], [place] [address]Dr. Garima Pulliam PROF CHEM 8 (BAS METB)on Anion gap [Moles/Vol] 8.2 mmol/L Normal [facility] Comment on above: Performed By: #### B MP, HSTROPN, BNP ####[facility] Seppvhwdvw87[address] [place] [address]Dr. Garima Pulliam Calcium [Mass/Vol] 8.7 mg/dL Normal 8.5-10.1 [facility] Comment on above: Performed By: #### B MP, HSTROPN, BNP ####[facility] Lkkzizddcn9919 [place] [address]Dr. Garima Pulliam Chloride [Moles/Vol] 103 mmol/L Normal 98-107 [facility] Comment on above: Performed By: #### B MP, HSTROPN, BNP ####[facility] Rdssbvauxu698[address] [place], [place] [address]Dr. Garima Pulliam CO2 [Moles/Vol] 29.4 mmol/L Normal 21.0-32.0 [facility] Comment on above: Performed By: #### B MP, HSTROPN, BNP ####[facility] Wfzvgtycsu[address] [place], [place] [address]Dr. Garima Pulliam Creatinine [Mass/Vol] 0.69 mg/dL Critically low 0.70-1.30 [facility] Comment on above: Performed By: #### B MP, HSTROPN, BNP ####[facility] Rmhoblxcar4526 [place] [address]Dr. Garima Pulliam EGFR-AF ANGOLAN >60 Normal >=60 [facility] Comment on above: Performed By: #### B MP, HSTROPN, BNP ####[facility] Niavhraxrm[address] [place], [place] [address]Dr. Garima Pulliam EGFR-NON AF ANGOLAN >60 Normal >=60 [facility] Comment on above: Performed By: #### B MP, HSTROPN, BNP ####[facility] Sjbevxbdar4734 [place] [address]Dr. Garima Pulliam Glucose [Mass/Vol] 209 mg/dL Critically high 74-106 [facility] Comment on above: Performed By: #### B MP, HSTROPN, BNP ####[facility] Wucbxgxtyi1563 [place] [address]Dr. Garima Pulliam Potassium [Moles/Vol] 3.6 mmol/L Normal 3.5-5.1 [facility] Comment on above: Performed By: #### B MP, HSTROPN, BNP ####[facility] Srllsxareh6[address] [place] [address]Dr. Garima Pulliam Sodium [Moles/Vol] 137 mmol/L Normal 136-145 [facility] [place] Comment on above: Performed By: #### B MP, HSTROPN, BNP ####[facility] Cjgppehagv0903 [place] [address]Dr. Garima Pulliam Urea nitrogen [Mass/Vol] 11.0 mg/dL Normal 7.0-18.0 [facility] Comment on above: Performed By: #### B MP, HSTROPN, BNP ####[facility] Ditrebhwwe24[address] [place] [address]Dr. Garima Pulliam Urea nitrogen/Creatinine [Mass ratio] 15.9 mg/mg Normal [facility] Comment on above: Performed By: #### B MP, HSTROPN, BNP ####[facility] Szmpzjuzux[address] [place] [address]Dr. Garima Pulliam TROPONIN, HIGH SENSITIVITYon 11-20-2022 HSTROP 8.7 pg/mL Normal 4.0-76.1 [facility] Comment on above: Result Comment: CUT- OFF POINTS HAVE BEEN ESTABLISHED BASED ON THE FOURTH UNIVERSAL DEFINITIONS OF MYOCARDIALINFARCTION. THE UPPER REFERENCE LIMIT (URL) OF TROPONIN, DEFINED THE 99TH PERCENTILE OFcTnI DISTRIBUTION IN A REFERENCE POPULATION, HAS BEEN CONFIRMED THE DECISION THRESHOLDFOR WA DIAGNOSIS. Performed By: #### B MP, HSTROPN, BNP ####[facility] Tqmhjbbmqp7162 [place] [address]Dr. Garima Pulliam XR CHEST 1 Von 11-20-2022 XR CHEST 1 V Normal [facility] XR CHEST 1 Von 10-02-2022 XR CHEST 1 V Normal [facility] BNPon 09-29-2022 Natriuretic peptide B (Bld) [Mass/Vol] 107.0 pg/mL Normal <=900.0 [facility] Comment on above: Performed By: #### C MP, BNP, CMADM ####[facility] Mzkedvdqhi4575 [place] [address]Dr. Garima Pulliam CARDIAC NASH ADMITon 022 CK [Catalytic activity/Vol] 190 U/L Normal 39-308 [facility] Comment on above: Performed By: #### C MP, BNP, CMADM ####[facility] Imwqkdwczi1302 [place] [address]Dr. Garima Heraclio CK.MB [Mass/Vol] 11.11 ng/mL Critically high <=3.60 [facility] Comment on above: Performed By: #### C MP, BNP, CMADM ####[facility] Prpeuihgjd0143 [place] [address]Dr. Garima Pulliam HSTROP 11.8 pg/mL Normal 4.0-76.1 [...] MP, BNP, CMADM ####[facility] Rqdbayuryd3451 [place] [address]Dr. Garima Pulliam DORIS 133 ng/mL Critically high 16-96 [facility] Comment on above: Performed By: #### C MP, BNP, CMADM ####[facility] Jtchomawdm1220 [place] [address]Dr. Garima Heraclio CBC AUTO DIFFon 09-29-2022 BASO # 0.0 103/ul Normal 0.0-0.1 [facility] Comment on above: Performed By: #### C BC ####[facility] Pocgjqzebm0904 [place] [address]Dr. Garima Heraclio Basophils/100 WBC (Bld) 0.2 % Normal 0.2-2.0 [facility] Comment on above: Performed By: #### C BC ####[facility] Ihjayanrte3538 [place] [phone]. Garima Pulliam EO # 0.1 103/ul Normal 0.0-0.7 [facility] Comment on above: Performed By: #### C BC ####[facility] Feynfrrnwi4327 [place] [phone]. Garima Pulliam Eosinophils/100 WBC (Bld) 1.4 % Normal 0.9-7.0 [facility] Comment on above: Performed By: #### C BC ####[facility] Wdpcqanqsy055[address] [place], [place] [address]Dr. Garima Pulliam Erythrocyte distribution width (RBC) [Ratio] 13.7 % Normal 11.0-15.0 [facility] Comment on above: Performed By: #### C BC ####[facility] Lfaijuurad237[address] [place], [place] [address]Dr. Garima Pulliam Hematocrit (Bld) [Volume fraction] 45.4 % Normal 42.0-54.0 [facility] Comment on above: Performed By: #### C BC ####[facility] Ytwcimjgut424[address] [place], [place] [address]Dr. Garima Pulliam Hemoglobin (Bld) [Mass/Vol] 14.8 g/dL Normal 14.0-18.0 [facility] Comment on above: Performed By: #### C BC ####[facility] Tximjlpstt13[address] [place], [place] [address]Dr. Garima Pulliam IG # 0.04 10e3/ul Critically high 0.00-0.03 [facility] Comment on above: Performed By: #### C BC ####[facility] Opnnppxxva1815[address] [place], [place] [address]Dr. Garima Pulliam IG % 0.5 % Normal 0.0-0.5 [facility] Comment on above: Performed By: #### C BC ####[facility] Xkjkzfzecz11[address] [place], [place] [address]Dr. Garima Pulliam LYMPH # 1.1 103/ul Critically low 1.2-3.8 [facility] Comment on above: Performed By: #### C BC ####[facility] Kwwcajxfsf7129 [place] [phone]. Garima Pulliam Lymphocytes/100 WBC (Bld) 12.7 % Critically low 20.5-60.0 [facility] Comment on above: Performed By: #### C BC ####[facility] Wnurahjewp9417 [place] [phone]. Chapisrenu Pulliam MANUAL DIFF REQ NO Normal [facility] Comment on above: Performed By: #### C BC ####[facility] Dlmjjkgywf[address] [place], [place] [address]Dr. Garima Heraclio MCH (RBC) [Entitic mass] 30.0 pg Normal 25.9-34.0 [facility] Comment on above: Performed By: #### C BC ####[facility] Euzfwpwzqk520[address] [place], [place] [address]Dr. Garima Heraclio MCHC (RBC) [Mass/Vol] 32.6 g/dL Normal 29.9-35.2 [facility] Comment on above: Performed By: #### C BC ####[facility] Olwdixxekp[address] [place], [place] [address]Dr. Garima Heraclio MCV (RBC) [Entitic vol] 91.9 fL Normal 80.0-94.0 [facility] Comment on above: Performed By: #### C BC ####[facility] Wdmtvlagiu46[address] [place], [place] [address]Dr. Garima Pulliam MONO # 0.4 103/ul Normal 0.3-0.8 [facility] Comment on above: Performed By: #### C BC ####[facility] Ocwdpqmcxf[address] [place], [place] [address]Dr. Chapisrenu Pulliam Monocytes/100 WBC (Bld) 4.8 % Normal 1.7-12.0 [facility] Comment on above: Performed By: #### C BC ####[facility] Bkelltslno6[address] [place], [place] [address]Dr. Garima Pulliam NEUT # 7.1 103/ul Critically high 1.4-6.5 [facility] Comment on above: Performed By: #### C BC ####[facility] Vejecbgolo5646 [place], [place] [address]Ee. Garima Pulliam Neutrophils/100 WBC (Bld) 80.4 % Critically high 43.0-75.0 [facility] Comment on above: Performed By: #### C BC ####[facility] Tsmoatlfsi1508 [place] [phone]. Garima Pulliam Platelet mean volume (Bld) [Entitic vol] 9.1 fL Critically low 9.5-13.5 [facility] Comment on above: Performed By: #### C BC ####[facility] Tmkmcukltr7379 [place] [phone]. Garima Pulliam PLT 200 103/ul Normal 150-450 [facility] Comment on above: Performed By: #### C BC ####[facility] Tyracwcmiy1156 [place] [phone]. Garima Pulliam RBC 4.94 106/ul Normal 4.70-6.10 [facility] Comment on above: Performed By: #### C BC ####[facility] Gbajfnxfeh6928 [place] [phone]. Garima Pulliam WBC 8.9 103/ul Normal 4.0-11.0 [facility] Comment on above: Performed By: #### C BC ####[facility] Acwhxawnxv8780 [place] [phone]. Garima Pulliam Covid-19 PCR (CVDTB)on SARS-CoV-2 (COVID-19) [...] for this test is supported by the [place] of Health and Human Service's declaration that [...] #### C VDTBH ####[facility] Etbiubtfkq06[address] [place] [address]Dr. Garima Pulliam LACTATE/LACTIC ACIDon 2021 Lactate [Moles/Vol] 1.7 mmol/L Normal 0.4-1.9 [facility] Comment on above: Performed By: #### L ACT ####[facility] Zulwpgkjxz[address] [place], [place] [address]Dr. Garima Pulliam PROF 14(COMP METB)on 022 Albumin [Mass/Vol] 3.8 g/dL Normal 3.4-5.0 [facility] Comment on above: Performed By: #### C MP, BNP, CMADM ####[facility] Vsyrgpxsaf[address] [place], [place] [address]Dr. Garima Pulliam Albumin/Globulin [Mass ratio] 1.5 {ratio} Normal [facility] Comment on above: Performed By: #### C MP, BNP, CMADM ####[facility] Tstgvwyqyw7904 [place] [address]Dr. Garima Pulliam ALP [Catalytic activity/Vol] 62 U/L Normal 46-116 [facility] Comment on above: Performed By: #### C MP, BNP, CMADM ####[facility] Suqnvzhybd2786 [place] [address]Dr. Garima Pulliam ALT [Catalytic activity/Vol] 37 U/L Normal 16-63 [facility] Comment on above: Performed By: #### C MP, BNP, CMADM ####[facility] Ftfkyqcrqy8256 [place] [address]Dr. Garima Pulliam Anion gap [Moles/Vol] 8.0 mmol/L Normal [facility] Comment on above: Performed By: #### C MP, BNP, CMADM ####[facility] Enzoebahdk0651 [place] [address]Dr. Garima Pulliam AST [Catalytic activity/Vol] 20 U/L Normal 15-37 [facility] Comment on above: Performed By: #### C MP, BNP, CMADM ####[facility] Gcgferreln0534 [place] [address]Dr. Garima Pulliam Bilirubin [Mass/Vol] 0.6 mg/dL Normal 0.2-1.0 [facility] Comment on above: Performed By: #### C MP, BNP, CMADM ####[facility] Cxcbvuvkxl8617 [place] [address]Dr. Garima Pulliam Calcium [Mass/Vol] 9.1 mg/dL Normal 8.5-10.1 [facility] Comment on above: Performed By: #### C MP, BNP, CMADM ####[facility] Tethmzxaiv[address] [place], [place] [address]Dr. Garima Pulliam Chloride [Moles/Vol] 103 mmol/L Normal 98-107 [facility] Comment on above: Performed By: #### C MP, BNP, CMADM ####[facility] Xmepqphvfr[address] [place], [place] [address]Dr. Garima Pulliam CO2 [Moles/Vol] 31.8 mmol/L Normal 21.0-32.0 [facility] Comment on above: Performed By: #### C MP, BNP, CMADM ####[facility] Wfejsrxeva9[address] [place], [place] [address]Dr. Garima Pulliam Creatinine [Mass/Vol] 0.63 mg/dL Critically low 0.70-1.30 [facility] Comment on above: Performed By: #### C MP, BNP, CMADM ####[facility] Xslllfazud[address] [place], [place] [address]Dr. Garima Pulliam EGFR-AF ANGOLAN >60 Normal >=60 [facility] Comment on above: Performed By: #### C MP, BNP, CMADM ####[facility] Twhahqmtkb[address] [place], [place] [address]Dr. Garima Pulliam EGFR-NON AF ANGOLAN >60 Normal >=60 [facility] Comment on above: Performed By: #### C MP, BNP, CMADM ####[facility] Imoxkvfbye3426 [place] [address]Dr. Gairma Pulliam Globulin (S) [Mass/Vol] 2.6 g/dL Normal [facility] Comment on above: Performed By: #### C MP, BNP, CMADM ####[facility] Vkbjzugjjm0022 [place] [address]Dr. Garima Pulliam Glucose [Mass/Vol] 103 mg/dL Normal 74-106 [facility] Comment on above: Performed By: #### C MP, BNP, CMADM ####[facility] Pvaaevenol4493 [place] [address]Dr. Garima Pulliam Potassium [Moles/Vol] 3.8 mmol/L Normal 3.5-5.1 [facility] Comment on above: Performed By: #### C MP, BNP, CMADM ####[facility] Ivilnnivcf3214 [place] [address]Dr. Garima Pulliam Protein [Mass/Vol] 6.4 g/dL Normal 6.4-8.2 [facility] Comment on above: Performed By: #### C MP, BNP, CMADM ####[facility] Mtpnylwqzh2193 [place] [address]Dr. Garima Pulliam Sodium [Moles/Vol] 139 mmol/L Normal 136-145 [facility] Comment on above: Performed By: #### C MP, BNP, CMADM ####[facility] Wzyderwekw7658 [place] [address]Dr. Garima Pulliam Urea nitrogen [Mass/Vol] 7.0 mg/dL Normal 7.0-18.0 [facility] Comment on above: Performed By: #### C MP, BNP, CMADM ####[facility] Hvmiayavbm3428 [place] [address]Dr. Garima Pulliam Urea nitrogen/Creatinine [Mass ratio] 11.1 mg/mg Normal [facility] Comment on above: Performed By: #### C MP, BNP, CMADM ####[facility] Ytcjdtiqrr2513 [place] [address]Dr. Garima Pulliam PROTIMEon 09-29-2022 INR Coag (PPP) [Relative time] 1.14 {INR} Normal [facility] Comment on above: Performed By: #### P T, PTT ####[facility] Bgtpwqhjfg[address] [place], [place] [address]Dr. Garima Pulliam INR GUIDELINES SEE BELOW Normal [facility] Comment on above: Result Comment: WESLEY RED INR: 2.0 - 3.0 CONDITIONS NOT LISTED BELOW 2.5 - 3.5 FOR PROSTHETIC HEART VALVE REPLACEMENT 2.5 - 3.5 RECURRENT THROMBOSIS Performed By: #### P T, PTT ####[facility] Ukfdbjurff96[address] [place], [place] [address]Dr. Garima Pulliam PT Coag (PPP) [Time] 12.2 s Critically high 9.0-11.6 [facility] Comment on above: Performed By: #### P T, PTT ####[facility] Rngfsvlmjy[address] [place], [place] [address]Dr. Garima Pulliam PTTon 09-29-2022 aPTT Coag (Bld) [Time] 29.3 s Normal 22.3-36.2 [facility] Comment on above: Performed By: #### P T, PTT ####[facility] Swmcwdclxr[address] [place], [place] [address]Dr. Garima Pulliam XR CHEST 1 Von 09-29-2022 XR CHEST 1 V Normal [facility] CBC AUTO DIFFon 09-26-2022 BASO # 0.0 103/ul Normal 0.0-0.1 [facility] Comment on above: Performed By: #### C BC ####[facility] Keedbifeay313[address] [place], [place] [address]Dr. Garima Pulliam Basophils/100 WBC (Bld) 0.2 % Normal 0.2-2.0 [facility] Comment on above: Performed By: #### C BC ####[facility] Ppbbozalfx325[address] [place], [place] [address]Dr. Garima Pulliam EO # 0.1 103/ul Normal 0.0-0.7 [facility] Comment on above: Performed By: #### C BC ####[facility] Aldvodienn75[address] [place], [place] [address]Dr. Garima Pulliam Eosinophils/100 WBC (Bld) 1.0 % Normal 0.9-7.0 [facility] Comment on above: Performed By: #### C BC ####[facility] Fuvbfzvmaa[address] [place], [place] [address]Dr. Garima Pulliam Erythrocyte distribution width (RBC) [Ratio] 13.4 % Normal 11.0-15.0 [facility] Comment on above: Performed By: #### C BC ####[facility] Vhcwxxkrtn[address] [place], [place] [address]Dr. Garima Pulliam Hematocrit (Bld) [Volume fraction] 46.3 % Normal 42.0-54.0 [facility] Comment on above: Performed By: #### C BC ####[facility] Wugevgnzuk[address] [place], [place] [address]Dr. Garima Pulliam Hemoglobin (Bld) [Mass/Vol] 15.3 g/dL Normal 14.0-18.0 [facility] Comment on above: Performed By: #### C BC ####[facility] Teytdyeyds850653 [address] [place], [place] [address]Dr. Garima Pulliam IG # 0.05 10e3/ul Critically high 0.00-0.03 [facility] Comment on above: Performed By: #### C BC ####[facility] Chsepndeen[address] [place], [place] [address]Dr. Garima Pulliam IG % 0.4 % Normal 0.0-0.5 [facility] Comment on above: Performed By: #### C BC ####[facility] Zdgdorhiow60[address] [place], [place] [address]Dr. Garima Pulliam LYMPH # 1.7 103/ul Normal 1.2-3.8 [facility] Comment on above: Performed By: #### C BC ####[facility] Veytbxsmyx055[address] [place], [place] [address]Dr. Garima Pulliam Lymphocytes/100 WBC (Bld) 12.7 % Critically low 20.5-60.0 [facility] Comment on above: Performed By: #### C BC ####[facility] Mxhavcsuvh[address] [place] [address]DrAdalberto Pulliam MANUAL DIFF REQ NO Normal [facility] Comment on above: Performed By: #### C BC ####[facility] Zfuddvixat7817 [place] [address]Dr. Garima Pulliam MCH (RBC) [Entitic mass] 30.1 pg Normal 25.9-34.0 [facility] Comment on above: Performed By: #### C BC ####[facility] Htgydglzil77[address] [place], [place] [address]Dr. Garima Pulliam MCHC (RBC) [Mass/Vol] 33.0 g/dL Normal 29.9-35.2 [facility] Comment on above: Performed By: #### C BC ####[facility] Yakrwgmyrl260[address] [place], [place] [address]DrAdalberto Pulliam MCV (RBC) [Entitic vol] 91.1 fL Normal 80.0-94.0 [facility] Comment on above: Performed By: #### C BC ####[facility] Hadvqeiluo938[address] [place], [place] [address]DrAdalberto Pulliam MONO # 0.9 103/ul Critically high 0.3-0.8 [facility] Comment on above: Performed By: #### C BC ####[facility] Moqvxacfly294[address] [place], [place] [address]DrAdalberto Pulliam Monocytes/100 WBC (Bld) 7.0 % Normal 1.7-12.0 [facility] Comment on above: Performed By: #### C BC ####[facility] Ckejxyqxdg326[address] [place], [place] [address]DrAdalberto Pulliam NEUT # 10.4 103/ul Critically high 1.4-6.5 [facility] Comment on above: Performed By: #### C BC ####[facility] Xlifspfkfm397[address] [place], [place] [address]DrAdalberto Pulliam Neutrophils/100 WBC (Bld) 78.7 % Critically high 43.0-75.0 [facility] Comment on above: Performed By: #### C BC ####[facility] Htznoicyaj8451 [place] [address]Dr. Garima Pulliam Platelet mean volume (Bld) [Entitic vol] 8.9 fL Critically low 9.5-13.5 [facility] Comment on above: Performed By: #### C BC ####[facility] Tfhtlyjreq4923 [place] [address]Dr. Garima Pulliam PLT 195 103/ul Normal 150-450 [facility] Comment on above: Performed By: #### C BC ####[facility] Ydecolrdzh786[address] [place], [place] [address]Dr. Garima Pulliam RBC 5.08 106/ul Normal 4.70-6.10 [facility] Comment on above: Performed By: #### C BC ####[facility] Vhqkepuozm464[address] [place], [place] [address]Dr. Garima Pulliam WBC 13.2 103/ul Critically high 4.0-11.0 [facility] Comment on above: Performed By: #### C BC ####[facility] Tjgfaxburg[address] [place], [place] [address]Dr. Garima Pulliam PROF 14(COMP METB)on 022 Albumin [Mass/Vol] 3.5 g/dL Normal 3.4-5.0 [facility] Comment on above: Performed By: #### C DAVID HSTROPN ####[facility] Vuosszpsal4546 [place] [address]Dr. Garima Pulliam Albumin/Globulin [Mass ratio] 1.2 {ratio} Normal [facility] Comment on above: Performed By: #### C RAFAT HERNANDEZTROPN ####[facility] Mvfdbietoq4855 [place] [address]Dr. Garima Pulliam ALP [Catalytic activity/Vol] 71 U/L Normal 46-116 [facility] Comment on above: Performed By: #### C DAVID HSTROPN ####[facility] Aqkclakmtx1016 [place] [address]Dr. Garima Pulliam ALT [Catalytic activity/Vol] 37 U/L Normal 16-63 [facility] Comment on above: Performed By: #### C DAVID, HSTROPN ####[facility] Spzhrmqcvq6011 [place] [address]Dr. Garima Pulliam Anion gap [Moles/Vol] 4.8 mmol/L Normal [facility] Comment on above: Performed By: #### C DAVID, HSTROPN ####[facility] Puqfblusik329[address] [place], [place] [address]Dr. Garima Pulliam AST [Catalytic activity/Vol] 21 U/L Normal 15-37 [facility] Comment on above: Performed By: #### C DAVID, HSTROPN ####[facility] Xayhgkgycl427[address] [place], [place] [address]Dr. Garima Pulliam Bilirubin [Mass/Vol] 0.3 mg/dL Normal 0.2-1.0 [facility] Comment on above: Performed By: #### C DAVID, HSTROPN ####[facility] Rnfcvdvpao4311 [place] [address]Dr. Garima Pulliam Calcium [Mass/Vol] 8.9 mg/dL Normal 8.5-10.1 [facility] Comment on above: Performed By: #### C DAVID, HSTROPN ####[facility] Hrqfcicklq8769 [place] [address]Dr. Garima Pulliam Chloride [Moles/Vol] 106 mmol/L Normal 98-107 [facility] Comment on above: Performed By: #### C DAVID, HSTROPN ####[facility] Ndpplprxrv9672 [place] [address]Dr. Garima Pulliam CO2 [Moles/Vol] 29.8 mmol/L Normal 21.0-32.0 [facility] Comment on above: Performed By: #### C DAVID, HSTROPN ####[facility] Sqnjqbaxnf1833 [place] [address]Dr. Garima Pulliam Creatinine [Mass/Vol] 0.68 mg/dL Critically low 0.70-1.30 [facility] Comment on above: Performed By: #### C MP, HSTROPN ####[facility] Jgrigekiac9559 [place] [address]Dr. Garima Pulliam EGFR-AF ANGOLAN >60 Normal >=60 [facility] Comment on above: Performed By: #### C MP, HSTROPN ####[facility] Ijcmwgttaj0098 [place] [address]Dr. Chapislan Pulliam EGFR-NON AF ANGOLAN >60 Normal >=60 [facility] Comment on above: Performed By: #### C MP, HSTROPN ####[facility] Xdvhtvqklp3123 [place] [address]Dr. Garima Pulliam Globulin (S) [Mass/Vol] 2.8 g/dL Normal [facility] Comment on above: Performed By: #### C MP, HSTROPN ####[facility] Imhiecyfld1286 [place] [address]Dr. Garima Pulliam Glucose [Mass/Vol] 133 mg/dL Critically high 74-106 [facility] Comment on above: Performed By: #### C MP, HSTROPN ####[facility] Rexcindjgd5101 [place] [address]Dr. Chapisrenu Pulliam Potassium [Moles/Vol] 3.6 mmol/L Normal 3.5-5.1 [facility] Comment on above: Performed By: #### C MP, HSTROPN ####[facility] Fvnickusup1073 [place] [address]Dr. Chapisrenu Pulliam Protein [Mass/Vol] 6.3 g/dL Critically low 6.4-8.2 [facility] Comment on above: Performed By: #### C MP, HSTROPN ####[facility] Fryajyogii6[address] [place], [place] [address]Dr. Chapisrenu Pulliam Sodium [Moles/Vol] 137 mmol/L Normal 136-145 [facility] Comment on above: Performed By: #### C MP, HSTROPN ####[facility] Rvhnzqtzwf215[address] [place], [place] [address]Dr. Garima Pulliam Urea nitrogen [Mass/Vol] 15.0 mg/dL Normal 7.0-18.0 [facility] Comment on above: Performed By: #### C DAVID HSTROPN ####[facility] Yooqxlvqel1524 [place] [address]Dr. Chapisrenu Pulliam Urea nitrogen/Creatinine [Mass ratio] 22.1 mg/mg Normal [facility] Comment on above: Performed By: #### C DAVID HSTROPN ####[facility] Jqxurgtuoc4666 [place] [address]Dr. Garima Heraclio TROPONIN, HIGH SENSITIVITYon 09-26-2022 HSTROP [...] C DAVID HSTROPN ####[facility] Jdhydqmmlm5271 [place] [address]Dr. Chapisrenu Pulliam XR CHEST 1 Von 09-26-2022 XR CHEST 1 V Normal [facility] XR CHEST 1 Von 09-16-2022 XR CHEST 1 V Normal [facility] CBC AUTO DIFFon 09-15-2022 BASO # 0.0 103/ul Normal 0.0-0.1 [facility] Comment on above: Performed By: #### C BC ####[facility] Uoslrbsaxs8547 [place] [address]Dr. Garima Heraclio Basophils/100 WBC (Bld) 0.1 % Critically low 0.2-2.0 [facility] Comment on above: Performed By: #### C BC ####[facility] Uwknrcvmae2354 [place] [address]Dr. Garima Pulliam EO # 0.0 103/ul Normal 0.0-0.7 [facility] Comment on above: Performed By: #### C BC ####[facility] Ugxhvblmmo2461 [place] [address]Dr. Garima Pulliam Eosinophils/100 WBC (Bld) 0.1 % Critically low 0.9-7.0 [facility] Comment on above: Performed By: #### C BC ####[facility] Cysmtfbudn3111 [place] [address]Dr. Garima Pulliam Erythrocyte distribution width (RBC) [Ratio] 14.1 % Normal 11.0-15.0 [facility] Comment on above: Performed By: #### C BC ####[facility] Xchdtlpsss22[address] [place], [place] [address]Dr. Garima Pulliam Hematocrit (Bld) [Volume fraction] 46.1 % Normal 42.0-54.0 [facility] Comment on above: Performed By: #### C BC ####[facility] Zlpjyurkqa336[address] [place], [place] [address]Dr. Garima Pulliam Hemoglobin (Bld) [Mass/Vol] 15.0 g/dL Normal 14.0-18.0 [facility] Comment on above: Performed By: #### C BC ####[facility] Kfcoplyepv[address] [place], [place] [address]Dr. Garima Pulliam IG # 0.03 10e3/ul Normal 0.00-0.03 [facility] Comment on above: Performed By: #### C BC ####[facility] Wcomslmfnd904[address] [place], [place] [address]Dr. Garima Pulliam IG % 0.3 % Normal 0.0-0.5 [facility] Comment on above: Performed By: #### C BC ####[facility] Jkilmhlnkp203[address] [place], [place] [address]Dr. Garima Pulliam LYMPH # 0.6 103/ul Critically low 1.2-3.8 [facility] Comment on above: Performed By: #### C BC ####[facility] Pqjhrnfanm096[address] [place], [place] [address]Dr. Garima Pulliam Lymphocytes/100 WBC (Bld) 5.8 % Critically low 20.5-60.0 [facility] Comment on above: Performed By: #### C BC ####[facility] Jwlgxqsmjv7262 [place] [id number]. Garima Pulliam MANUAL DIFF REQ NO Normal [facility] Comment on above: Performed By: #### C BC ####[facility] Gwcbmrhgma9712 [place] [id number]. Garima Pulliam MCH (RBC) [Entitic mass] 30.2 pg Normal 25.9-34.0 [facility] Comment on above: Performed By: #### C BC ####[facility] Rwoumbntga2736 [place] [address]Dr. Garima Pulliam MCHC (RBC) [Mass/Vol] 32.5 g/dL Normal 29.9-35.2 [facility] Comment on above: Performed By: #### C BC ####[facility] Jpyilprjfv1792 [place] [address]Dr. Garima Pulliam MCV (RBC) [Entitic vol] 92.8 fL Normal 80.0-94.0 [facility] Comment on above: Performed By: #### C BC ####[facility] Tsbqfonujk4661 [place] [address]Dr. Garima Heraclio MONO # 0.3 103/ul Normal 0.3-0.8 [facility] Comment on above: Performed By: #### C BC ####[facility] Hfbhaimgey9010 [place] [id number]. Garima Heraclio Monocytes/100 WBC (Bld) 3.2 % Normal 1.7-12.0 [facility] Comment on above: Performed By: #### C BC ####[facility] Wrobgevyon1681 [place] [id number]. Garima Pulliam NEUT # 9.8 103/ul Critically high 1.4-6.5 [facility] Comment on above: Performed By: #### C BC ####[facility] Lqlkzlieve8692 [place] [id number]. Garima Pulliam Neutrophils/100 WBC (Bld) 90.5 % Critically high 43.0-75.0 [facility] Comment on above: Performed By: #### C BC ####[facility] Dokruviixm6548 [place] [phone]. Garima Pulliam Platelet mean volume (Bld) [Entitic vol] 9.4 fL Critically low 9.5-13.5 [facility] Comment on above: Performed By: #### C BC ####[facility] Uroohpyeit8666 [place] [phone]. Garima Pulliam PLT 208 103/ul Normal 150-450 [facility] Comment on above: Performed By: #### C BC ####[facility] Wvjgfzizin7035 [place] [address]Dr. Garima Pulliam RBC 4.97 106/ul Normal 4.70-6.10 [facility] Comment on above: Performed By: #### C BC ####[facility] Wmhgaewilx1386 [place] [address]Dr. Garima Pulliam WBC 10.8 103/ul Normal 4.0-11.0 [facility] Comment on above: Performed By: #### C BC ####[facility] Bayhjgpxfv4977 [place] [address]Dr. Garima Pulliam PROF 14(COMP METB)on 022 Albumin [Mass/Vol] 4.0 g/dL Normal 3.4-5.0 [facility] Comment on above: Performed By: #### C MP ####[facility] Twftdbvgsq2284 [place] [address]Dr. Garima Pulliam Albumin/Globulin [Mass ratio] 1.5 {ratio} Normal [facility] Comment on above: Performed By: #### C MP ####[facility] Muvuytmckq3326 [place] [address]Dr. Garima Pulliam ALP [Catalytic activity/Vol] 73 U/L Normal 46-116 [facility] Comment on above: Performed By: #### C MP ####[facility] Idcddjbdcl7832 [place] [address]Dr. Garima Pulliam ALT [Catalytic activity/Vol] 42 U/L Normal 16-63 [facility] Comment on above: Performed By: #### C MP ####[facility] Uwchlabiyr5784 [place] [address]Dr. Garima Pulliam Anion gap [Moles/Vol] 9.1 mmol/L Normal [facility] Comment on above: Performed By: #### C MP ####[facility] Vwfniigzjy5965[address] [place], [place] [address]Dr. Garima Pulliam AST [Catalytic activity/Vol] 28 U/L Normal 15-37 [facility] Comment on above: Performed By: #### C MP ####[facility] Icjxvzcpmj420[address] [place], [place] [address]Dr. Garima Pulliam Bilirubin [Mass/Vol] 0.6 mg/dL Normal 0.2-1.0 [facility] Comment on above: Performed By: #### C MP ####[facility] Klwcxwhkbv778[address] [place], [place] [address]Dr. Garima Pulliam Calcium [Mass/Vol] 8.6 mg/dL Normal 8.5-10.1 The [place] Comment on above: Performed By: #### C MP ####[facility] Douosbqxev933[address] [place], [place] [address]Dr. Garima Pulliam Chloride [Moles/Vol] 105 mmol/L Normal 98-107 [facility] Comment on above: Performed By: #### C MP ####[facility] Uxshbuuezd626[address] [place], [place] [address]Dr. Garima Pulliam CO2 [Moles/Vol] 28.5 mmol/L Normal 21.0-32.0 [facility] Comment on above: Performed By: #### C MP ####[facility] Otgoaulozf695[address] [place], [place] [address]Dr. Garima Heraclio Creatinine [Mass/Vol] 0.78 mg/dL Normal 0.70-1.30 [facility] Comment on above: Performed By: #### C MP ####[facility] Xbwtwxfmtf437[address] [place], [place] [address]Dr. Chapisrenu Heraclio EGFR-AF ANGOLAN >60 Normal >=60 [facility] Comment on above: Performed By: #### C MP ####[facility] Etqgltvgow2212[address] [place], [place] [address]Dr. Garima Pulliam EGFR-NON AF ANGOLAN >60 Normal >=60 [facility] Comment on above: Performed By: #### C MP ####[facility] Rnztmyupsa0164 [place] [address]Dr. Garima Pulliam Globulin (S) [Mass/Vol] 2.7 g/dL Normal [facility] Comment on above: Performed By: #### C MP ####[facility] Ufjvixrvov2133 [place] [address]Dr. Garima Pulliam Glucose [Mass/Vol] 220 mg/dL Critically high 74-106 [facility] Comment on above: Performed By: #### C MP ####[facility] Fhxordskja1311 [place] [address]Dr. Garima Pulliam Potassium [Moles/Vol] 3.6 mmol/L Normal 3.5-5.1 [facility] Comment on above: Performed By: #### C MP ####[facility] Liqqoircxk764[address] [place], [place] [address]Dr. Garima Pulliam Protein [Mass/Vol] 6.7 g/dL Normal 6.4-8.2 [facility] Comment on above: Performed By: #### C MP ####[facility] Uazeltjiob400[address] [place], [place] [address]Dr. Garima Pulliam Sodium [Moles/Vol] 139 mmol/L Normal 136-145 [facility] Comment on above: Performed By: #### C MP ####[facility] Avuhckdybo870[address] [place], [place] [address]Dr. Garima Pulliam Urea nitrogen [Mass/Vol] 11.0 mg/dL Normal 7.0-18.0 [facility] Comment on above: Performed By: #### C MP ####[facility] Fqyqubbeqs637[address] [place], [place] [address]Dr. Garima Pulliam Urea nitrogen/Creatinine [Mass ratio] 14.1 mg/mg Normal [facility] Comment on above: Performed By: #### C MP ####[facility] Cszxofqfhw8420[address] [place], [place] [address]Dr. Garima Pulliam CARDIAC NASH 3-6on 2 CK [Catalytic activity/Vol] 240 U/L Normal 39-308 [facility] Comment on above: Performed By: #### C MREP ####[facility] Scsqmbrshx7557 [place] [address]Dr. Garima Pulliam CK.MB [Mass/Vol] 10.38 ng/mL Critically high <=3.60 [facility] Comment on above: Performed By: #### C MREP ####[facility] Yxpbkksauq3921 [place] [address]Dr. Garima Pulliam HSTROP 18.5 pg/mL Normal 4.0-76.1 [facility] Comment on above: Result Comment: CUT- OFF POINTS HAVE BEEN ESTABLISHED BASED ON THE FOURTH UNIVERSAL DEFINITIONS OF MYOCARDIALINFARCTION. THE UPPER REFERENCE LIMIT (URL) OF TROPONIN, DEFINED THE 99TH PERCENTILE OFcTnI DISTRIBUTION IN A REFERENCE POPULATION, HAS BEEN CONFIRMED THE DECISION THRESHOLDFOR WA DIAGNOSIS. Performed By: #### C MREP ####[facility] Xjydpctcbs3130 [place] [address]Dr. Garima Pulliam CK [Catalytic activity/Vol] 257 U/L Normal 39-308 [facility] Comment on above: Performed By: #### C MREP ####[facility] Mbsyeplibi760[address] [place], [place] [address]Dr. Garima Pulliam CK.MB [Mass/Vol] 9.89 ng/mL Critically high <=3.60 [facility] Comment on above: Performed By: #### C MREP ####[facility] Wcrgluqbnm475[address] [place], [place] [address]Dr. Garima Pulliam HSTROP 16.9 pg/mL Normal 4.0-76.1 [facility] Comment on above: Result Comment: CUT- OFF POINTS HAVE BEEN ESTABLISHED BASED ON THE FOURTH UNIVERSAL DEFINITIONS OF MYOCARDIALINFARCTION. THE UPPER REFERENCE LIMIT (URL) OF TROPONIN, DEFINED THE 99TH PERCENTILE OFcTnI DISTRIBUTION IN A REFERENCE POPULATION, HAS BEEN CONFIRMED THE DECISION THRESHOLDFOR WA DIAGNOSIS. Performed By: #### C MREP ####[facility] Wpsaryfwyq9876 [place] [address]Dr. Garima Heraclio CBC AUTO DIFFon 10-22-2022 BASO # 0.0 103/ul Normal 0.0-0.1 [facility] Comment on above: Performed By: #### C BC ####[facility] Fssjzrriwm4093 [place] [id number]. Garima Pulliam Basophils/100 WBC (Bld) 0.1 % Critically low 0.2-2.0 [facility] Comment on above: Performed By: #### C BC ####[facility] Vjqcxhthrt5470 [place] [address]Dr. Garima Pulliam EO # 0.0 103/ul Normal 0.0-0.7 [facility] Comment on above: Performed By: #### C BC ####[facility] Rsiaqdorly764[address] [place], [place] [address]Dr. Chapisrenu Heraclio Eosinophils/100 WBC (Bld) 0.0 % Critically low 0.9-7.0 [facility] Comment on above: Performed By: #### C BC ####[facility] Ogtncoqjyq5969[address] [place], [place] [address]Dr. Garima Pulliam Erythrocyte distribution width (RBC) [Ratio] 13.6 % Normal 11.0-15.0 [facility] Comment on above: Performed By: #### C BC ####[facility] Liqhrlxkzf405[address] [place], [place] [address]Dr. Garima Pulliam Hematocrit (Bld) [Volume fraction] 48.2 % Normal 42.0-54.0 [facility] Comment on above: Performed By: #### C BC ####[facility] Havvohiukg514[address] [place], [place] [address]Dr. Garima Pulliam Hemoglobin (Bld) [Mass/Vol] 16.0 g/dL Normal 14.0-18.0 [facility] Comment on above: Performed By: #### C BC ####[facility] Cuoaayajeq20[address] [place], [place] [address]Dr. Chapisrenu Heraclio IG # 0.02 10e3/ul Normal 0.00-0.03 [facility] Comment on above: Performed By: #### C BC ####[facility] Oleugvokfl1357 [place] [phone]. Garima Pulliam IG % 0.3 % Normal 0.0-0.5 [facility] Comment on above: Performed By: #### C BC ####[facility] Vrriffiveg2046 [place] [address]Dr. Garima Heraclio LYMPH # 0.5 103/ul Critically low 1.2-3.8 [facility] Comment on above: Performed By: #### C BC ####[facility] Pjxibcfgrr4137 [place] [address]Dr. Garima Heraclio Lymphocytes/100 WBC (Bld) 7.7 % Critically low 20.5-60.0 [facility] Comment on above: Performed By: #### C BC ####[facility] Fsjstvrjyh8[address] [place], [place] [address]Dr. Chapisrenu Pulliam MANUAL DIFF REQ NO Normal [facility] Comment on above: Performed By: #### C BC ####[facility] Livoqpemue225[address] [place], [place] [address]Dr. Garima Heraclio MCH (RBC) [Entitic mass] 30.6 pg Normal 25.9-34.0 [facility] Comment on above: Performed By: #### C BC ####[facility] Lkiitbvkes027[address] [place], [place] [address]Dr. Garima Pulliam MCHC (RBC) [Mass/Vol] 33.2 g/dL Normal 29.9-35.2 [facility] Comment on above: Performed By: #### C BC ####[facility] Xkwoonigup137[address] [place], [place] [address]Dr. Garima Heraclio MCV (RBC) [Entitic vol] 92.2 fL Normal 80.0-94.0 [facility] Comment on above: Performed By: #### C BC ####[facility] Bhlintkmoy90[address] [place], [place] [address]Dr. Garima Pulliam MONO # 0.0 103/ul Critically low 0.3-0.8 [facility] Comment on above: Performed By: #### C BC ####[facility] Wcakmuircs1609 [place] [id number]. Garima Pulliam Monocytes/100 WBC (Bld) 0.4 % Critically low 1.7-12.0 [facility] Comment on above: Performed By: #### C BC ####[facility] Znaircpwrm0476 [place] [phone]. Garima Pulliam NEUT # 6.2 103/ul Normal 1.4-6.5 [facility] Comment on above: Performed By: #### C BC ####[facility] Gotbwtfuxy8351 [place] [address]Dr. Garima Pulliam Neutrophils/100 WBC (Bld) 91.5 % Critically high 43.0-75.0 [facility] Comment on above: Performed By: #### C BC ####[facility] [address] [place] [address]Dr. Garima Pulliam Platelet mean volume (Bld) [Entitic vol] 8.7 fL Critically low 9.5-13.5 [facility] Comment on above: Performed By: #### C BC ####[facility] Tzygeseeas[address] [place] [address]Dr. Garima Pulliam PLT 179 103/ul Normal 150-450 [facility] Comment on above: Performed By: #### C BC ####[facility] Ngeprkosys[address] [place] [id number]. Garima Pulliam RBC 5.23 106/ul Normal 4.70-6.10 [facility] Comment on above: Performed By: #### C BC ####[facility] Qbrjvbaund[address] [place] [address]Dr. Garima Pulliam WBC 6.7 103/ul Normal 4.0-11.0 [facility] Comment on above: Performed By: #### C BC ####[facility] Ninsdyqllr[address] [place] [address]Dr. Garima Pulliam PROF CHEM 8 (BAS METB)on Anion gap [Moles/Vol] 12.1 mmol/L Normal [facility] Comment on above: Performed By: #### B MP ####[facility] P[address]dnvlmcv[address] [place] [id number]. Garima Pulliam Calcium [Mass/Vol] 8.7 mg/dL Normal 8.5-10.1 The [place] Comment on above: Performed By: #### B MP ####[facility] Vocycmyiak[address] [place] [id number]. Garima Pulliam Chloride [Moles/Vol] 105 mmol/L Normal 98-107 [facility] Comment on above: Performed By: #### B MP ####[facility] Grbyvfsblm[address] [place] [phone]. Garima Pulliam CO2 [Moles/Vol] 25.5 mmol/L Normal 21.0-32.0 [facility] Comment on above: Performed By: #### B MP ####[facility] Recwkctnfi[address] [place] [address]Dr. Garmia Pulliam Creatinine [Mass/Vol] 0.63 mg/dL Critically low 0.70-1.30 [facility] Comment on above: Performed By: #### B MP ####[facility] Jvtychnuss[address] [place] [address]Dr. Garima Pulliam EGFR-AF ANGOLAN >60 Normal >=60 [facility] Comment on above: Performed By: #### B MP ####[facility] Xfeviwehgc[address] [place] [address]Dr. Garima Pulliam EGFR-NON AF ANGOLAN >60 Normal >=60 [facility] Comment on above: Performed By: #### B MP ####[facility] Iqqpopgmwi6[address] [place] [address]Dr. Garima Pulliam Glucose [Mass/Vol] 162 mg/dL Critically high 74-106 [facility] Comment on above: Performed By: #### B MP ####[facility] Vsrbrfsm[address] [place], [place] [address]Dr. Graima Pulliam Potassium [Moles/Vol] 3.6 mmol/L Normal 3.5-5.1 [facility] Comment on above: Performed By: #### B MP ####[facility] Fbjckct[address] [place], [place] [address]Dr. Garima Pulliam Sodium [Moles/Vol] 139 mmol/L Normal 136-145 [facility] Comment on above: Performed By: #### B DAVID ####[facility] Xiuhubrrje[address] [place] [address]Dr. Garima Pulliam Urea nitrogen [Mass/Vol] 9.0 mg/dL Normal 7.0-18.0 [facility] Comment on above: Performed By: #### B DAVID ####[facility] Ocj[address]qtruzl[address] [place] [address]Dr. Garima Pulliam Urea nitrogen/Creatinine [Mass ratio] 14.3 mg/mg Normal [facility] Comment on above: Performed By: #### B DAVID ####[facility] Qlhqqbunqb[address] [place] [address]Dr. Chapisrenu Pulliam CARDIAC NASH ADMITon 09-12- 022 CK [Catalytic activity/Vol] 304 U/L Normal 39-308 [facility] Comment on above: Performed By: #### B NANCY HERNANDEZ ####[facility] Cphylyneve[address] [place] [address]Dr. Garima Pulliam CK.MB [Mass/Vol] 11.81 ng/mL Critically high <=3.60 [facility] Comment on above: Performed By: #### B NANCY HERNANDEZ ####[facility] Rroksnlfmu[address] [place] [address]Dr. Garima Heraclio HSTROP 13.3 pg/mL Normal 4.0-76.1 [facility] Comment on above: Result Comment: CUT- OFF POINTS HAVE BEEN ESTABLISHED BASED ON THE FOURTH UNIVERSAL DEFINITIONS OF MYOCARDIALINFARCTION. THE UPPER REFERENCE LIMIT (URL) OF TROPONIN, DEFINED THE 99TH PERCENTILE OFcTnI DISTRIBUTION IN A REFERENCE POPULATION, HAS BEEN CONFIRMED THE DECISION THRESHOLDFOR WA DIAGNOSIS. Performed By: #### B NANCY HERNANDEZ ####[facility] Kkchyumbnv[address] [place] [address]Dr. Garima Pulliam DORIS 133 ng/mL Critically high 16-96 [facility] Comment on above: Performed By: #### B NANCY HERNANDEZ ####[facility] Ddaxhagzgy[address] [place] [address]Dr. Garima Pulliam CBC AUTO DIFFon 09-12-2022 BASO # 0.0 103/ul Normal 0.0-0.1 [facility] Comment on above: Performed By: #### C BC ####[facility] [address] [place], [place] [address]Dr. Garima Heraclio Basophils/100 WBC (Bld) 0.2 % Normal 0.2-2.0 [facility] Comment on above: Performed By: #### C BC ####[facility] Myvzrmpexl[address] [place], [place] [address]Dr. Garima Heraclio EO # 0.2 103/ul Normal 0.0-0.7 [facility] Comment on above: Performed By: #### C BC ####[facility] Iuimgxiclg[address] [place], [place] [address]Dr. Chapisrenu Pulliam Eosinophils/100 WBC (Bld) 1.3 % Normal 0.9-7.0 [facility] Comment on above: Performed By: #### C BC ####[facility] [address] [place], [place] [address]Dr. Garima Pulliam Erythrocyte distribution width (RBC) [Ratio] 13.7 % Normal 11.0-15.0 [facility] Comment on above: Performed By: #### C BC ####[facility] [address] [place], [place] [address]Dr. Garima Pulliam Hematocrit (Bld) [Volume fraction] 46.4 % Normal 42.0-54.0 [facility] Comment on above: Performed By: #### C BC ####[facility] Jyfleinb[address] [place], [place] [address]Dr. Garima Pulliam Hemoglobin (Bld) [Mass/Vol] 15.7 g/dL Normal 14.0-18.0 [facility] Comment on above: Performed By: #### C BC ####[facility] Rqievpdrbr[address] [place], [place] [address]Dr. Garima Pulliam IG # 0.04 10e3/ul Critically high 0.00-0.03 [facility] Comment on above: Performed By: #### C BC ####[facility] Ebiaxsnmil[address] [place] [id number]. Garima Pulliam IG % 0.3 % Normal 0.0-0.5 [facility] Comment on above: Performed By: #### C BC ####[facility] Zksqasvkae[address] [place] [phone]. Garima Pulliam LYMPH # 1.7 103/ul Normal 1.2-3.8 [facility] Comment on above: Performed By: #### C BC ####[facility] Keniftwyqu[address] [place] [phone]. Garima Pulliam Lymphocytes/100 WBC (Bld) 11.5 % Critically low 20.5-60.0 [facility] Comment on above: Performed By: #### C BC ####[facility] Evsdrntndp[address] [place] [phone]. Garima Pulliam MANUAL DIFF REQ NO Normal [facility] Comment on above: Performed By: #### C BC ####[facility] Xarnibvteo[address] [place] [phone]. Garima Pulliam MCH (RBC) [Entitic mass] 31.0 pg Normal 25.9-34.0 [facility] Comment on above: Performed By: #### C BC ####[facility] Hrbqxijwea[address] [place] [phone]. Garima Pulliam MCHC (RBC) [Mass/Vol] 33.8 g/dL Normal 29.9-35.2 [facility] Comment on above: Performed By: #### C BC ####[facility] Ouztdmabvv[address] [place] [phone]. Garima Pulliam MCV (RBC) [Entitic vol] 91.7 fL Normal 80.0-94.0 [facility] Comment on above: Performed By: #### C BC ####[facility] Nxdelomnoo[address] [place] [phone]. Garima Heraclio MONO # 0.8 103/ul Normal 0.3-0.8 [facility] Comment on above: Performed By: #### C BC ####[facility] Ntocqqbpxk[address] [place] [phone]. Garima Pulliam Monocytes/100 WBC (Bld) 5.2 % Normal 1.7-12.0 [facility] Comment on above: Performed By: #### C BC ####[facility] Vnpxfkpvbw[address] [place] [phone]. Garima Pulliam NEUT # 11.7 103/ul Critically high 1.4-6.5 [facility] Comment on above: Performed By: #### C BC ####[facility] Vvlegxsgml[address] [place] [phone]. Garima Pulliam Neutrophils/100 WBC (Bld) 81.5 % Critically high 43.0-75.0 [facility] Comment on above: Performed By: #### C BC ####[facility] Xkhpatzsno[address] [place] [address]Dr. Garima Pulliam Platelet mean volume (Bld) [Entitic vol] 8.6 fL Critically low 9.5-13.5 [facility] Comment on above: Performed By: #### C BC ####[facility] Hcdfotqrtf[address] [place] [phone]. Garima Pulliam PLT 191 103/ul Normal 150-450 [facility] Comment on above: Performed By: #### C BC ####[facility] W[address]buopf[address] [place], [place] [address]Dr. Garima Pulliam RBC 5.06 106/ul Normal 4.70-6.10 [facility] Comment on above: Performed By: #### C BC ####[facility] [address] [place], [place] [address]Dr. Garima Pulliam WBC 14.4 103/ul Critically high 4.0-11.0 [facility] Comment on above: Performed By: #### C BC ####[facility] [address]pm[address] [place], [place] [address]Dr. Garima Pulliam [facility]24 SARS-CoV-2 (COVID-19) RNA MARIE+probe Ql (Unsp spec) Not detected Normal NOT DETECTED [facility] Comment on above: Result Comment: When [...] for this test is supported by the [place] of Health and Human Service's declaration that [...] #### C VDTBH ####[facility] Rfhqpmljfq[address] [place], [place] [address]Dr. Garima Pulliam LACTATE/LACTIC ACIDon 2021 Lactate [Moles/Vol] 1.0 mmol/L Normal 0.4-1.9 [facility] Comment on above: Performed By: #### L ACT ####[facility] Ndwnipxeff[address] [place], [place] [address]Dr. Garima Pulliam PROF CHEM 8 (BAS METB)on Anion gap [Moles/Vol] 11.6 mmol/L Normal [facility] Comment on above: Performed By: #### B NANCY HERNANDEZ ####[facility] Qcmteitnba[address] [place] [address]Dr. Garima Pulliam Calcium [Mass/Vol] 9.2 mg/dL Normal 8.5-10.1 [facility] Comment on above: Performed By: #### B NANCY HERNANDEZ ####[facility] Syilxpyplz[address] [place] [address]Dr. Garima Pulliam Chloride [Moles/Vol] 105 mmol/L Normal 98-107 [facility] Comment on above: Performed By: #### B MP, CMADM ####[facility] Sgqjxwlsim15[address] [place] [phone]. Garima Pulliam CO2 [Moles/Vol] 25.9 mmol/L Normal 21.0-32.0 [facility] Comment on above: Performed By: #### B DAVID, CMADM ####[facility] Wwwbqpkmze[address] [place] [address]Dr. Garima Pulliam Creatinine [Mass/Vol] 0.72 mg/dL Normal 0.70-1.30 [facility] Comment on above: Performed By: #### B DAVID, CMADM ####[facility] Yjaanahyze[address] [place] [id number]. Garima Pulliam EGFR-AF ANGOLAN >60 Normal >=60 [facility] Comment on above: Performed By: #### B DAVID, CMADM ####[facility] [address]rtjngoiu[address] [place] [address]Dr. Chapisrenu Pulliam EGFR-NON AF ANGOLAN >60 Normal >=60 [facility] Comment on above: Performed By: #### B DAVID, CMAANA ROSA ####[facility] E[address]ecxvket[address] [place] [address]Dr. Garima Pulliam Glucose [Mass/Vol] 111 mg/dL Critically high 74-106 [facility] Comment on above: Performed By: #### B DAVID, CMADM ####[facility] Ktx[address]kycbvn4[address] [place] [address]Dr. Chapisrenu Pulliam Potassium [Moles/Vol] 3.5 mmol/L Normal 3.5-5.1 [facility] Comment on above: Performed By: #### B DAVID, CMADM ####[facility] [address]nwvscfjny[address] [place] [address]Dr. Chapisrenu Pulliam Sodium [Moles/Vol] 139 mmol/L Normal 136-145 [facility] Comment on above: Performed By: #### B DAVID, CMADM ####[facility] Ejokhiruuq[address] [place] [address]Dr. Garima Pulliam Urea nitrogen [Mass/Vol] 7.0 mg/dL Normal 7.0-18.0 [facility] Comment on above: Performed By: #### B DAVID, CMADM ####[facility] [address] [place], [place] [address]Bz. Garima Pulliam Urea nitrogen/Creatinine [Mass ratio] 9.7 mg/mg Normal [facility] Comment on above: Performed By: #### B MP, CMADM ####[facility] Fnpknjiymz[address] [place], [place] [address]Ql. Garima Pulliam XR CHEST 1 Von 09-12-2022 [...] Facility:[facility] Payers Date Payer Category Payer Unknown [id number] 1960 Medicaid [id number] 1960 Unknown [id number] 1960 Unknown [id number] 1954 Unknown [id number] 2.16.84 0.1.815078.3.579.2.593 1954 Unknown [id number] 2.16.84 0.1.604006.3.579.2.593 1954 Unknown [id number] 2.16.84 0.1.342256.3.579.2.593 1954 Unknown [id number] 2.16.84 0.1.903036.3.579.2.593 1954 Unknown [id number] 2.16.84 0.1.497984.3.579.2.593 1954 Unknown [id number] 2.16.84 0.1.220892.3.579.2.593 1954 Unknown [id number] 2.16.84 0.1.441922.3.579.2.593 1954 Unknown [id number] 2.16.84 0.1.307103.3.579.2.593 1954 Unknown [id number] 2.16.84 0.1.824098.3.579.2.593 1954 Unknown [id number] 2.16.84 0.1.293971.3.579.2.593 1954 Unknown [id number] 2.16.84 0.1.029962.3.579.2.593 1954 Unknown [id number] 2.16.84 0.1.467221.3.579.2.593 1954 Unknown [id number] 2.16.84 0.1.067386.3.579.2.593 1954 Unknown [id number] 2.16.84 0.1.757288.3.579.2.593 1954 Unknown [id number] 2.16.84 0.1.643180.3.579.2.593 1954 Unknown [id number] 2.16.84 0.1.853992.3.579.2.593 1954 Unknown [id number] 2.16.84 0.1.267846.3.579.2.593 1954 Unknown [id number] 2.16.84 0.1.947961.3.579.2.593 1954 Unknown [id number] 2.16.84 0.1.834712.3.579.2.593 1954 Unknown [id number] 2.16.84 0.1.591302.3.579.2.593 Summary Purpose Family History No Family History Records Found Advance Directives No Advanced Directives Records Found Additional Source Comments (unrecognized sect ion and content) No Status Records Found INFORMATION SOURCE (unrecogn ized section and content) DATE CREATED AUTHOR 04/08/2023 [facility] FOR RECORDS PERTAINING TO PATIENTS [...] BE BASED ON THE PRIMARY CLINICAL RECORDS. [facility] [employer] [facility]. provides no warranty or guarantee of the accuracy or completeness of information in this document.
[2025-01-27] MEDS: IPRATROPIUM/ALBUTEROL SULFATE 3 ML AMPUL.NEB IH (17:30)
[2025-01-27 17:31] VITALS: PULSE 83; O2SAT 94
--- NOTE | 2025-01-27 17:32 | PC.NURSE ---
RT at bedside for breathing treatment at this time. pt reports that he did not cook pickled meat his prescribed medication from his last visit. denies CP, c/o SOB.
--- NOTE | 2025-01-27 18:00 | ED_ITS ---
Documented by User: Peter Parks MD 01/27/25 18:05 HPI HPI - General Adult General Chief complaint: Shortness of Breath/Dyspnea Stated complaint: SHORT OF BREATH Time Seen by Provider: 01/27/25 17:01 Source: patient Mode of arrival: Wheelchair Limitations: no limitations History of Present Illness HPI narrative: Patient presents to the emergency department stating he has COPD and he needs a breathing treatment. He states that he feels short of breath. He states that he has run out of his albuterol inhaler at home. He is a cigarette smoker who [facility] and get his prescription sent in to him in the mail. He does not report recent chills or fever. Related Data Home Medications ?Medication ?Instructions ?Recorded ?Confirmed albuterol sulfate 90 mcg/actuation 2 inh inhalation Q6H PRN shortness 03/13/24 01/02/25 aerosol inhaler of breath or wheezing Previous Rx's ?Medication ?Instructions ?Recorded losartan 100 mg tablet 100 mg PO DAILY #30 tabs 12/27/23 prednisone 20 mg tablet See Rx Instructions .Route 09/21/24 .COMPLEX #12 tabs albuterol sulfate 2.5 mg/0.5 mL 2.5 mg (0.5 mL) inhalation Q4H PRN 10/02/24 solution for nebulization shortness of breath or wheezing #30 ea hydrocodone 5 mg-acetaminophen 325 1 tab PO Q4H PRN pain #10 tabs 11/11/24 mg tablet ketorolac 10 mg tablet 10 mg PO Q8H PRN pain 1 day #10 11/11/24 tabs metformin 500 mg tablet 500 mg PO BID #30 tabs 11/11/24 ondansetron 4 mg disintegrating 4 mg PO Q4H PRN nausea and 11/11/24 tablet vomiting 3 days #6 tabs tamsulosin 0.4 mg capsule (Flomax) 0.4 mg PO DAILY 7 days #7 caps 11/11/24 tamsulosin 0.4 mg capsule (Flomax) 0.4 mg PO DAILY #14 caps 11/12/24 ipratropium 0.5 mg-albuterol 3 mg 3 ml inhalation Q4H PRN shortness 12/10/24 (2.5 mg base)/3 mL nebulization of breath #90 mL soln albuterol sulfate 2.5 mg/3 mL 2.5 mg (3 mL) inhalation Q6H PRN 12/24/24 (0.083 %) solution for nebulization shortness of breath or wheezing #90 mL losartan 100 mg tablet (Cozaar) 100 mg PO DAILY #30 tabs 12/24/24 dicyclomine 10 mg capsule 10 mg PO QID PRN abdominal pain 12/28/24 #20 caps ondansetron 4 mg disintegrating 4 mg PO Q6H PRN nausea and 12/28/24 tablet vomiting #20 tabs albuterol sulfate 90 mcg/actuation 2 inh inhalation QID PRN shortness 01/02/25 aerosol inhaler of breath or wheezing #8.5 grams losartan 100 mg tablet 100 mg PO DAILY #10 tabs 01/02/25 meloxicam 7.5 mg tablet 7.5 mg PO DAILY PRN pain #10 tabs 01/02/25 oxycodone-acetaminophen 5 mg-325 1 tab PO Q12H PRN pain 3 days #6 01/02/25 mg tablet (Percocet) tabs tamsulosin 0.4 mg capsule (Flomax) 0.4 mg PO DAILY #10 caps 01/02/25 albuterol sulfate 2.5 mg/3 mL 2.5 mg (3 mL) inhalation Q6H PRN 01/24/25 (0.083 %) solution for nebulization shortness of breath or wheezing #90 mL losartan 100 mg tablet 100 mg PO DAILY #30 tabs 01/24/25 metformin 500 mg tablet 500 mg PO BID #20 tabs 01/24/25 albuterol sulfate 90 mcg/actuation 2 inh inhalation Q6H PRN shortness 01/27/25 aerosol inhaler of breath or wheezing #8.5 grams losartan 100 mg tablet 100 mg PO DAILY #30 tabs 01/27/25 Allergies Allergy/AdvReac Type Severity Reaction Status Date / Time No Known Drug Allergies Allergy Verified 01/19/25 21:49 Opioid HPI Opioid Management Most Recent Opioid Data: Last Pain Scale 3 01/27/25 19:02 01/27/25 Last ED Pain Assessment 01/27/25 19:02 Last MAR Pain Assessment 01/27/25 18:46 Last ORT Total Score 0 01/29/24 06:36 01/29/24 Last ORT Risk Category Low Risk 01/29/24 06:36 01/29/24 Review of Systems ROS Narrative All other systems are reviewed and are negative other than what is mentioned in the HPI. [facility] Medical History Hypokalemia ?E87.6 - Hypokalemia (ICD-10) New onset type 2 diabetes mellitus ?E11.9 - Type 2 diabetes mellitus without complications (ICD-10) Lower extremity edema ?R60.0 - Localized edema (ICD-10) Edema ?R60.9 - Edema, unspecified (ICD-10) Acute hyperglycemia ?R73.9 - Hyperglycemia, unspecified (ICD-10) Tobacco abuse ?Z72.0 - Tobacco use (ICD-10) HTN (hypertension) ?I10 - Essential (primary) hypertension (ICD-10) Community acquired pneumonia ?J18.9 - Pneumonia, unspecified organism (ICD-10) Chronic obstructive pulmonary disease ?J44.9 - Chronic obstructive pulmonary disease, unspecified (ICD-10) Acute exacerbation of chronic obstructive pulmonary disease (COPD) ?J44.1 - Chronic obstructive pulmonary disease with (acute) exacerbation (ICD-10) RLL pneumonia ?J18.9 - Pneumonia, unspecified organism (ICD-10) COPD (chronic obstructive pulmonary disease) ?J44.9 - Chronic obstructive pulmonary disease, unspecified (ICD-10) Surgical History Hx of tonsillectomy ?Z90.89 - Acquired absence of other organs (ICD-10) Family History Mother Family history of cancer Family history of hypertension Father Family history of cancer Social History Within the past year, how often did you have a drink containing alcohol: 4 or more times a week Within the past year, how many standard drinks containing alcohol did you have on a typical day: 3 or 4 Within the past year, how often did you have six or more drinks on one occasion: less than monthly Total score: 3 Score interpretation: A score of 4 or more indicates drinking is likely to affect patient's safety. Smoking status: Current every day smoker Non-prescribed substance use: cannabis (any form) Previous occupational history: retired Highest level of school completed/degree received: high school graduate Are you now , , , , never or living with a partner: In a typical week, how many times do you talk on the telephone with family, friends, or neighbors: twice per week How often do you get together with friends or relatives: once per week How often do you attend religion or restorationist services: never Do you belong to any clubs or organizations such as religion groups unions, [employer] or athletic groups, or school groups: no Total score: 1 Score interpretation: A score of less than or equal to 1 indicates the most socially isolated. Little interest or pleasure in doing things: not at all Feeling down, depressed, or hopeless: not at all Feel stressed/tense/nervous/anxious/difficulty sleeping: not at all Do you think of yourself as: straight/heterosexual Gender Identity: male Exam Narrative Exam Narrative: Patient does not appear in acute respiratory distress. He does not have conversational dyspnea. His blood pressure is elevated and he is afebrile. Oxygen saturation is 94% on room air. HEENT exam is normal to inspection. Neck is supple. Lung sounds are diminished throughout but I do not hear rales or r honchi. Heart has distant sounds with regular rate and rhythm. Abdomen soft and benign. Patient moves all extremities actively. Constitutional Vital Signs, click to edit/add: Last Vital Signs Temp 98.2 F 01/27/25 17:02 Pulse 65 01/27/25 19:15 Resp 20 01/27/25 19:15 BP 180/80 H 01/27/25 19:15 Pulse Ox 95 01/27/25 19:15 O2 Del Method Room Air 01/27/25 19:15 Course Vital Signs Vital signs: Vital Signs Temperature 98.2 F 01/27/25 17:02 Pulse Rate 84 01/27/25 17:02 Respiratory Rate 24 H 01/27/25 17:02 Blood Pressure 189/100 H 01/27/25 17:02 Pulse Oximetry 96 01/27/25 17:02 Temperature 98.2 F 01/27/25 17:02 Pulse Rate 65 01/27/25 19:15 Respiratory Rate 20 01/27/25 19:15 Blood Pressure 180/80 H 01/27/25 19:15 Pulse Oximetry 95 01/27/25 19:15 Oxygen Delivery Method Room Air 01/27/25 19:15 Medical Decision Making MDM Narrative Medical decision making narrative: Patient presents to the ED with a history of COPD asking for a breathing treatment. He was treated with a DuoNeb aerosol treatment after which she started complaining of severe left flank pain. This pain does not radiate down the legs or anteriorly into the abdomen. He stated that he needed something for the pain. He denied urinary symptoms. On examination he has left paralumbar tenderness. Patient is treated with IV Toradol and a urinalysis, baseline blood work and CT scan of the abdomen pelvis have been ordered as part of the workup. Lab Data Labs: Lab Results 01/27/25 01/27/25 Range/Units 18:30 19:02 WBC 9.2 (4.0-11.0) 10^3/uL RBC 4.52 L (4.70-6.10) 10^6/uL Hgb 13.6 L (14.0-18.0) g/dL Hct 39.5 L (42.0-54.0) % MCV 87.4 (80.0-94.0) fL MCH 30.1 (25.9-34.0) pg MCHC 34.4 (29.9-35.2) g/dL RDW 13.2 (11.0-15.0) % Plt Count 197 (150-450) 10^3/uL MPV 9.1 L (9.5-13.5) fL Neut % (Auto) 66.9 (43.0-75.0) % Lymph % (Auto) 23.6 (20.5-60.0) % [place] % (Auto) 7.3 (1.7-12.0) % Eos % (Auto) 1.7 (0.9-7.0) % Baso % (Auto) 0.3 (0.2-2.0) % Neut # (Auto) 6.1 (1.4-6.5) 10^3/uL Lymph # (Auto) 2.2 (1.2-3.8) 10^3/uL [place] # (Auto) 0.7 (0.3-0.8) 10^3/uL Eos # (Auto) 0.2 (0.0-0.7) 10^3/uL Baso # (Auto) 0.0 (0.0-0.1) 10^3/uL Abs Immat Gran (auto) 0.02 (0.00-0.03) 10^3/uL Imm/Tot Granulo (auto) 0.2 (0.0-0.5) % Sodium 138 (136-145) mmol/L Potassium 3.2 L (3.5-5.1) mmol/L Chloride 102 (98-107) mmol/L Carbon Dioxide 32.3 H (21.0-32.0) mmol/L Anion Gap 6.9 BUN 5.0 L (7.0-18.0) mg/dL Creatinine 0.64 L (0.70-1.30) mg/dL Est GFR ( Amer) >60 (>=60 mL/min/1.73m^2) Est GFR (Non-Af Amer) >60 (>=60 mL/min/1.73m^2) BUN/Creatinine Ratio 7.8 Glucose 184 H (74-106) mg/dL Calcium 9.0 (8.5-10.1) mg/dL Total Bilirubin 0.5 (0.2-1.0) mg/dL AST 28 (15-37) U/L ALT 40 (16-63) U/L Alkaline Phosphatase 74 (46-116) U/L Total Protein 5.9 L (6.4-8.2) g/dL Albumin 3.6 (3.4-5.0) g/dL Globulin 2.3 g/dL Albumin/Globulin Ratio 1.6 Urine Color Lt. yellow (YELLOW) Urine Clarity Clear (CLEAR) Urine pH 6.0 (5.0-9.0) Ur Specific [place] 1.020 (1.005-1.025) Urine Protein Negative (NEG/TRACE) mg/dL Urine Glucose (UA) 500 A (NEGATIVE) mg/dL Urine Ketones Negative (NEGATIVE) mg/dL Urine Occult Blood Trace-i (NEGATIVE) Urine Nitrite Negative (NEGATIVE) Urine Bilirubin Negative (NEGATIVE) Urine Urobilinogen 0.2 (0.2-1.0) EU/dL Ur Leukocyte Esterase Negative (NEGATIVE) Urine RBC 0-2 (0-2) #/HPF Urine WBC 0-2 A (NONE SEEN) #/HPF Ur Squamous Epith Cells Few A (NONE/RARE) #/LPF Urine Crystals None seen (None Seen) #/HPF Urine Bacteria None seen (NONE SEEN) #/HPF Urine Casts None seen (NONE SEEN) #/LPF Urine Mucus None seen (NONE SEEN) Ur Culture Indicated? No Discharge Plan Discharge Chief Complaint: Shortness of Breath/Dyspnea Clinical Impression: Acute infective exacerbation of chronic obstructive airway disease, Acute left flank pain, Hypertension, Medication refill Patient Disposition: Home, Self-Care Time of Disposition Decision: 20:01 Prescriptions / Home Meds: New albuterol sulfate 90 mcg/actuation HFA aerosol inhaler 2 inh inhalation Q6H PRN (Reason: shortness of breath or wheezing) Qty: 8.5 0RF losartan 100 mg tablet 100 mg PO DAILY Qty: 30 0RF No Action losartan 100 mg tablet 100 mg PO DAILY Qty: 30 11RF albuterol sulfate 90 mcg/actuation HFA aerosol inhaler 2 inh inhalation Q6H PRN (Reason: shortness of breath or wheezing) prednisone 20 mg tablet See Rx Instructions .ROUTE .COMPLEX Qty: 12 0RF Rx Instructions: 3 tabs daily for 2 days, then 2 tabs daily for 2 days, then 1 tab daily for 2 days albuterol sulfate 2.5 mg/0.5 mL solution for nebulization 2.5 mg inhalation Q4H PRN (Reason: shortness of breath or wheezing) Qty: 30 2RF dicyclomine 10 mg capsule 10 mg PO QID PRN (Reason: abdominal pain) Qty: 20 0RF ondansetron 4 mg tablet,disintegrating 4 mg PO Q6H PRN (Reason: nausea and vomiting) Qty: 20 0RF metformin 500 mg tablet 500 mg PO BID Qty: 20 0RF losartan 100 mg tablet 100 mg PO DAILY Qty: 30 0RF albuterol sulfate 2.5 mg /3 mL (0.083 %) solution for nebulization 2.5 mg inhalation Q6H PRN (Reason: shortness of breath or wheezing) Qty: 90 0RF hydrocodone-acetaminophen 5-325 mg tablet 1 tab PO Q4H PRN (Reason: pain) Qty: 10 0RF ketorolac 10 mg tablet 10 mg PO Q8H PRN (Reason: pain) 1 Days Qty: 10 0RF tamsulosin [Flomax] 0.4 mg capsule 0.4 mg PO DAILY 7 Days Qty: 7 0RF ondansetron 4 mg tablet,disintegrating 4 mg PO Q4H PRN (Reason: nausea and vomiting) 3 Days Qty: 6 0RF metformin 500 mg tablet 500 mg PO BID Qty: 30 0RF tamsulosin [Flomax] 0.4 mg capsule 0.4 mg PO DAILY Qty: 14 0RF ipratropium-albuterol 0.5 mg-3 mg(2.5 mg base)/3 mL solution for nebulization 3 ml inhalation Q4H PRN (Reason: shortness of breath) Qty: 90 0RF Rx Instructions: until breathing returns to target peak flow/parameters losartan [Cozaar] 100 mg tablet 100 mg PO DAILY Qty: 30 0RF albuterol sulfate 2.5 mg /3 mL (0.083 %) solution for nebulization 2.5 mg inhalation Q6H PRN (Reason: shortness of breath or wheezing) Qty: 90 1RF losartan 100 mg tablet 100 mg PO DAILY Qty: 10 0RF tamsulosin [Flomax] 0.4 mg capsule 0.4 mg PO DAILY Qty: 10 0RF meloxicam 7.5 mg tablet 7.5 mg PO DAILY PRN (Reason: pain) Qty: 10 0RF oxycodone-acetaminophen [Percocet] 5-325 mg tablet 1 tab PO Q12H PRN (Reason: pain) 3 Days Qty: 6 0RF albuterol sulfate 90 mcg/actuation HFA aerosol inhaler 2 inh inhalation QID PRN (Reason: shortness of breath or wheezing) Qty: 8.5 0RF Print Language: Kyrgyz Instructions: COPD (Chronic Obstructive Pulmonary Disease) (ED), Flank Pain (ED) Referrals: SERG DUENAS [Primary Care Provider] - 1 week Documented by User: Rigoberto Patterson 01/27/25 20:10 HPI HPI - General Adult General Chief complaint: Shortness of Breath/Dyspnea Stated complaint: SHORT OF BREATH Time Seen by Provider: 01/27/25 17:01 Related Data Home Medications ?Medication ?Instructions ?Recorded ?Confirmed albuterol sulfate 90 mcg/actuation 2 inh inhalation Q6H PRN shortness 03/13/24 01/02/25 aerosol inhaler of breath or wheezing Previous Rx's ?Medication ?Instructions ?Recorded losartan 100 mg tablet 100 mg PO DAILY #30 tabs 12/27/23 prednisone 20 mg tablet See Rx Instructions .Route 09/21/24 .COMPLEX #12 tabs albuterol sulfate 2.5 mg/0.5 mL 2.5 mg (0.5 mL) inhalation Q4H PRN 10/02/24 solution for nebulization shortness of breath or wheezing #30 ea hydrocodone 5 mg-acetaminophen 325 1 tab PO Q4H PRN pain #10 tabs 11/11/24 mg tablet ketorolac 10 mg tablet 10 mg PO Q8H PRN pain 1 day #10 11/11/24 tabs metformin 500 mg tablet 500 mg PO BID #30 tabs 11/11/24 ondansetron 4 mg disintegrating 4 mg PO Q4H PRN nausea and 11/11/24 tablet vomiting 3 days #6 tabs tamsulosin 0.4 mg capsule (Flomax) 0.4 mg PO DAILY 7 days #7 caps 11/11/24 tamsulosin 0.4 mg capsule (Flomax) 0.4 mg PO DAILY #14 caps 11/12/24 ipratropium 0.5 mg-albuterol 3 mg 3 ml inhalation Q4H PRN shortness 12/10/24 (2.5 mg base)/3 mL nebulization of breath #90 mL soln albuterol sulfate 2.5 mg/3 mL 2.5 mg (3 mL) inhalation Q6H PRN 12/24/24 (0.083 %) solution for nebulization shortness of breath or wheezing #90 mL losartan 100 mg tablet (Cozaar) 100 mg PO DAILY #30 tabs 12/24/24 dicyclomine 10 mg capsule 10 mg PO QID PRN abdominal pain 12/28/24 #20 caps ondansetron 4 mg disintegrating 4 mg PO Q6H PRN nausea and 12/28/24 tablet vomiting #20 tabs albuterol sulfate 90 mcg/actuation 2 inh inhalation QID PRN shortness 01/02/25 aerosol inhaler of breath or wheezing #8.5 grams losartan 100 mg tablet 100 mg PO DAILY #10 tabs 01/02/25 meloxicam 7.5 mg tablet 7.5 mg PO DAILY PRN pain #10 tabs 01/02/25 oxycodone-acetaminophen 5 mg-325 1 tab PO Q12H PRN pain 3 days #6 01/02/25 mg tablet (Percocet) tabs tamsulosin 0.4 mg capsule (Flomax) 0.4 mg PO DAILY #10 caps 01/02/25 albuterol sulfate 2.5 mg/3 mL 2.5 mg (3 mL) inhalation Q6H PRN 01/24/25 (0.083 %) solution for nebulization shortness of breath or wheezing #90 mL losartan 100 mg tablet 100 mg PO DAILY #30 tabs 01/24/25 metformin 500 mg tablet 500 mg PO BID #20 tabs 01/24/25 albuterol sulfate 90 mcg/actuation 2 inh inhalation Q6H PRN shortness 01/27/25 aerosol inhaler of breath or wheezing #8.5 grams losartan 100 mg tablet 100 mg PO DAILY #30 tabs 01/27/25 Allergies Allergy/AdvReac Type Severity Reaction Status Date / Time No Known Drug Allergies Allergy Verified 01/19/25 21:49 Opioid HPI Opioid Management Most Recent Opioid Data: Last Pain Scale 3 01/27/25 19:02 01/27/25 Last ED Pain Assessment 01/27/25 19:02 Last MAR Pain Assessment 01/27/25 18:46 Last ORT Total Score 0 01/29/24 06:36 01/29/24 Last ORT Risk Category Low Risk 01/29/24 06:36 01/29/24 [facility] Medical History Hypokalemia ?E87.6 - Hypokalemia (ICD-10) New onset type 2 diabetes mellitus ?E11.9 - Type 2 diabetes mellitus without complications (ICD-10) Lower extremity edema ?R60.0 - Localized edema (ICD-10) Edema ?R60.9 - Edema, unspecified (ICD-10) Acute hyperglycemia ?R73.9 - Hyperglycemia, unspecified (ICD-10) Tobacco abuse ?Z72.0 - Tobacco use (ICD-10) HTN (hypertension) ?I10 - Essential (primary) hypertension (ICD-10) Community acquired pneumonia ?J18.9 - Pneumonia, unspecified organism (ICD-10) Chronic obstructive pulmonary disease ?J44.9 - Chronic obstructive pulmonary disease, unspecified (ICD-10) Acute exacerbation of chronic obstructive pulmonary disease (COPD) ?J44.1 - Chronic obstructive pulmonary disease with (acute) exacerbation (ICD-10) RLL pneumonia ?J18.9 - Pneumonia, unspecified organism (ICD-10) COPD (chronic obstructive pulmonary disease) ?J44.9 - Chronic obstructive pulmonary disease, unspecified (ICD-10) Surgical History Hx of tonsillectomy ?Z90.89 - Acquired absence of other organs (ICD-10) Family History Mother Family history of cancer Family history of hypertension Father Family history of cancer Social History Within the past year, how often did you have a drink containing alcohol: 4 or more times a week Within the past year, how many standard drinks containing alcohol did you have on a typical day: 3 or 4 Within the past year, how often did you have six or more drinks on one occasion: less than monthly Total score: 3 Score interpretation: A score of 4 or more indicates drinking is likely to affect patient's safety. Smoking status: Current every day smoker Non-prescribed substance use: cannabis (any form) Previous occupational history: retired Highest level of school completed/degree received: high school graduate Are you now , , , , never or living with a partner: In a typical week, how many times do you talk on the telephone with family, friends, or neighbors: twice per week How often do you get together with friends or relatives: once per week How often do you attend religion or restorationist services: never Do you belong to any clubs or organizations such as religion groups unions, [employer] or athletic groups, or school groups: no Total score: 1 Score interpretation: A score of less than or equal to 1 indicates the most socially isolated. Little interest or pleasure in doing things: not at all Feeling down, depressed, or hopeless: not at all Feel stressed/tense/nervous/anxious/difficulty sleeping: not at all Do you think of yourself as: straight/heterosexual Gender Identity: male Exam Constitutional Vital Signs, click to edit/add: Last Vital Signs Temp 98.2 F 01/27/25 17:02 Pulse 65 01/27/25 19:15 Resp 20 01/27/25 19:15 BP 180/80 H 01/27/25 19:15 Pulse Ox 95 01/27/25 19:15 O2 Del Method Room Air 01/27/25 19:15 Course Vital Signs Vital signs: Vital Signs Temperature 98.2 F 01/27/25 17:02 Pulse Rate 84 01/27/25 17:02 Respiratory Rate 24 H 01/27/25 17:02 Blood Pressure 189/100 H 01/27/25 17:02 Pulse Oximetry 96 01/27/25 17:02 Temperature 98.2 F 01/27/25 17:02 Pulse Rate 65 01/27/25 19:15 Respiratory Rate 20 01/27/25 19:15 Blood Pressure 180/80 H 01/27/25 19:15 Pulse Oximetry 95 01/27/25 19:15 Oxygen Delivery Method Room Air 01/27/25 19:15 Medical Decision Making MDM Narrative Medical decision making narrative: Patient presents to the ED with a history of COPD asking for a breathing treatment. He was treated with a DuoNeb aerosol treatment after which she started complaining of severe left flank pain. This pain does not radiate down the legs or anteriorly into the abdomen. He stated that he needed something for the pain. He denied urinary symptoms. On examination he has left paralumbar tenderness. Patient is treated with IV Toradol and a urinalysis, baseline blood work and CT scan of the abdomen pelvis have been ordered as part of the workup. Attending physician note -patient signed out to me at 7 PM shift change. He had initially come in for what appeared to be a COPD exacerbation -he is well-known to this ED and typically runs out of his medications. [facility] and he does not regularly attend his scheduled appointments and therefore his medications are withheld. He also complained of some left flank pain and therefore CT scan of the abdomen pelvis was ordered. He received a breathing treatment in the emergency department. He was given Toradol for pain. I got the radiologist's report of the patient's CT scan -he has numerous bilateral kidney stones without any ureterolithiasis or ureteral changes. He also has chronic pancreatitis. He also has bilateral adrenal masses, consistent with adenoma. I saw and examined the patient and explained his results to him. His blood pressure was markedly elevated in the ED. He admitted to medical noncompliance, did not want an IV or to stay for IV antihypertensive treatment, was willing to take oral blood pressure pills before discharge. I also filled his prescription for both an albuterol inhaler as well as for his losartan, which he told me he was out of. We talked about reasons to return to the emergency department including increasing shortness of breath, chest pain, headache, dizziness, blurred vision, numbness tingling or weakness. He was discharged home Clinical impression -acute COPD exacerbation, left flank pain musculoskeletal etiology, hypertension, medical noncompliance Lab Data Labs: Lab Results 01/27/25 01/27/25 Range/Units 18:30 19:02 WBC 9.2 (4.0-11.0) 10^3/uL RBC 4.52 L (4.70-6.10) 10^6/uL Hgb 13.6 L (14.0-18.0) g/dL Hct 39.5 L (42.0-54.0) % MCV 87.4 (80.0-94.0) fL MCH 30.1 (25.9-34.0) pg MCHC 34.4 (29.9-35.2) g/dL RDW 13.2 (11.0-15.0) % Plt Count 197 (150-450) 10^3/uL MPV 9.1 L (9.5-13.5) fL Neut % (Auto) 66.9 (43.0-75.0) % Lymph % (Auto) 23.6 (20.5-60.0) % [place] % (Auto) 7.3 (1.7-12.0) % Eos % (Auto) 1.7 (0.9-7.0) % Baso % (Auto) 0.3 (0.2-2.0) % Neut # (Auto) 6.1 (1.4-6.5) 10^3/uL Lymph # (Auto) 2.2 (1.2-3.8) 10^3/uL [place] # (Auto) 0.7 (0.3-0.8) 10^3/uL Eos # (Auto) 0.2 (0.0-0.7) 10^3/uL Baso # (Auto) 0.0 (0.0-0.1) 10^3/uL Abs Immat Gran (auto) 0.02 (0.00-0.03) 10^3/uL Imm/Tot Granulo (auto) 0.2 (0.0-0.5) % Sodium 138 (136-145) mmol/L Potassium 3.2 L (3.5-5.1) mmol/L Chloride 102 (98-107) mmol/L Carbon Dioxide 32.3 H (21.0-32.0) mmol/L Anion Gap 6.9 BUN 5.0 L (7.0-18.0) mg/dL Creatinine 0.64 L (0.70-1.30) mg/dL Est GFR ( Amer) >60 (>=60 mL/min/1.73m^2) Est GFR (Non-Af Amer) >60 (>=60 mL/min/1.73m^2) BUN/Creatinine Ratio 7.8 Glucose 184 H (74-106) mg/dL Calcium 9.0 (8.5-10.1) mg/dL Total Bilirubin 0.5 (0.2-1.0) mg/dL AST 28 (15-37) U/L ALT 40 (16-63) U/L Alkaline Phosphatase 74 (46-116) U/L Total Protein 5.9 L (6.4-8.2) g/dL Albumin 3.6 (3.4-5.0) g/dL Globulin 2.3 g/dL Albumin/Globulin Ratio 1.6 Urine Color Lt. yellow (YELLOW) Urine Clarity Clear (CLEAR) Urine pH 6.0 (5.0-9.0) Ur Specific [place] 1.020 (1.005-1.025) Urine Protein Negative (NEG/TRACE) mg/dL Urine Glucose (UA) 500 A (NEGATIVE) mg/dL Urine Ketones Negative (NEGATIVE) mg/dL Urine Occult Blood Trace-i (NEGATIVE) Urine Nitrite Negative (NEGATIVE) Urine Bilirubin Negative (NEGATIVE) Urine Urobilinogen 0.2 (0.2-1.0) EU/dL Ur Leukocyte Esterase Negative (NEGATIVE) Urine RBC 0-2 (0-2) #/HPF Urine WBC 0-2 A (NONE SEEN) #/HPF Ur Squamous Epith Cells Few A (NONE/RARE) #/LPF Urine Crystals None seen (None Seen) #/HPF Urine Bacteria None seen (NONE SEEN) #/HPF Urine Casts None seen (NONE SEEN) #/LPF Urine Mucus None seen (NONE SEEN) Ur Culture Indicated? No Discharge Plan Discharge Chief Complaint: Shortness of Breath/Dyspnea Clinical Impression: Acute infective exacerbation of chronic obstructive airway disease, Acute left flank pain, Hypertension, Medication refill Patient Disposition: Home, Self-Care Time of Disposition Decision: 20:01 Prescriptions / Home Meds: New albuterol sulfate 90 mcg/actuation HFA aerosol inhaler 2 inh inhalation Q6H PRN (Reason: shortness of breath or wheezing) Qty: 8.5 0RF losartan 100 mg tablet 100 mg PO DAILY Qty: 30 0RF No Action losartan 100 mg tablet 100 mg PO DAILY Qty: 30 11RF albuterol sulfate 90 mcg/actuation HFA aerosol inhaler 2 inh inhalation Q6H PRN (Reason: shortness of breath or wheezing) prednisone 20 mg tablet See Rx Instructions .ROUTE .COMPLEX Qty: 12 0RF Rx Instructions: 3 tabs daily for 2 days, then 2 tabs daily for 2 days, then 1 tab daily for 2 days albuterol sulfate 2.5 mg/0.5 mL solution for nebulization 2.5 mg inhalation Q4H PRN (Reason: shortness of breath or wheezing) Qty: 30 2RF dicyclomine 10 mg capsule 10 mg PO QID PRN (Reason: abdominal pain) Qty: 20 0RF ondansetron 4 mg tablet,disintegrating 4 mg PO Q6H PRN (Reason: nausea and vomiting) Qty: 20 0RF metformin 500 mg tablet 500 mg PO BID Qty: 20 0RF losartan 100 mg tablet 100 mg PO DAILY Qty: 30 0RF albuterol sulfate 2.5 mg /3 mL (0.083 %) solution for nebulization 2.5 mg inhalation Q6H PRN (Reason: shortness of breath or wheezing) Qty: 90 0RF hydrocodone-acetaminophen 5-325 mg tablet 1 tab PO Q4H PRN (Reason: pain) Qty: 10 0RF ketorolac 10 mg tablet 10 mg PO Q8H PRN (Reason: pain) 1 Days Qty: 10 0RF tamsulosin [Flomax] 0.4 mg capsule 0.4 mg PO DAILY 7 Days Qty: 7 0RF ondansetron 4 mg tablet,disintegrating 4 mg PO Q4H PRN (Reason: nausea and vomiting) 3 Days Qty: 6 0RF metformin 500 mg tablet 500 mg PO BID Qty: 30 0RF tamsulosin [Flomax] 0.4 mg capsule 0.4 mg PO DAILY Qty: 14 0RF ipratropium-albuterol 0.5 mg-3 mg(2.5 mg base)/3 mL solution for nebulization 3 ml inhalation Q4H PRN (Reason: shortness of breath) Qty: 90 0RF Rx Instructions: until breathing returns to target peak flow/parameters losartan [Cozaar] 100 mg tablet 100 mg PO DAILY Qty: 30 0RF albuterol sulfate 2.5 mg /3 mL (0.083 %) solution for nebulization 2.5 mg inhalation Q6H PRN (Reason: shortness of breath or wheezing) Qty: 90 1RF losartan 100 mg tablet 100 mg PO DAILY Qty: 10 0RF tamsulosin [Flomax] 0.4 mg capsule 0.4 mg PO DAILY Qty: 10 0RF meloxicam 7.5 mg tablet 7.5 mg PO DAILY PRN (Reason: pain) Qty: 10 0RF oxycodone-acetaminophen [Percocet] 5-325 mg tablet 1 tab PO Q12H PRN (Reason: pain) 3 Days Qty: 6 0RF albuterol sulfate 90 mcg/actuation HFA aerosol inhaler 2 inh inhalation QID PRN (Reason: shortness of breath or wheezing) Qty: 8.5 0RF Print Language: Kyr[place] Instructions: COPD (Chronic Obstructive Pulmonary Disease) (ED), Flank Pain (ED) Referrals: SERG DUENAS [Primary Care Provider] - 1 week
--- NOTE | 2025-01-27 18:12 | PC.NURSE ---
pt informed of order for urine specimen. pt given specimen cup at bedside and was instructed to let RN know when he was able to provide sample. pt states well it might be awhile, I just went a little while ago. pt aware of pending labs and urine d/t new complaint of L flank pain. onset while in ED. denies urinary complaints, nausea, fever or chills.
--- NOTE | 2025-01-27 18:20 | PC.NURSE ---
pt to CT with Traffic Supervisor at this time.
[2025-01-27] MEDS: KETOROLAC TROMETHAMINE 30 MG/ML VIAL IM (18:46)
--- NOTE | 2025-01-27 18:49 | PC.NURSE ---
lab at bedside for lab draw at this time, pt denies further needs.
[2025-01-27 18:53] LABS: Bilirubin Urine NEGATIVE (NEGATIVE); Blood Urine TRACE-I (NEGATIVE); Clarity Urine CLEAR (CLEAR); Color Urine LT. YELLOW (YELLOW); Glucose Urine UA 500 mg/dL (NEGATIVE); Ketones Urine NEGATIVE (NEGATIVE); Leukocyte Esterase Urine NEGATIVE (NEGATIVE); Nitrite Urine NEGATIVE (NEGATIVE); Protein Urine NEGATIVE (NEG/TRACE); Urobilinogen Urine 0.2 EU/dL (0.2-1.0)
[2025-01-27 19:03] LABS: Urine Microscopic Indicated YES
[2025-01-27 19:09] LABS: Basophils Percent Auto 0.3 % (0.2-2.0); Eosinophils Absolute Auto 0.2 10^3/uL (0.0-0.7); Eosinophils Percent Auto 1.7 % (0.9-7.0); Hematocrit 39.5 % (42.0-54.0); Hemoglobin 13.6 g/dL (14.0-18.0); Immature Granulocytes Abs Auto 0.02 10^3/uL (0.00-0.03); Immature Granulocytes Pct Auto 0.2 % (0.0-0.5); Lymphocytes Absolute Auto 2.2 10^3/uL (1.2-3.8); Lymphocytes Percent Auto 23.6 % (20.5-60.0); Mean Corpuscular HGB Conc 34.4 g/dL (29.9-35.2); Mean Corpuscular Hemoglobin 30.1 pg (25.9-34.0); Mean Corpuscular Volume 87.4 fL (80.0-94.0); Mean Platelet Volume 9.1 fL (9.5-13.5); Monocytes Absolute Auto 0.7 10^3/uL (0.3-0.8); Monocytes Percent Auto 7.3 % (1.7-12.0); Neutrophils Absolute Auto 6.1 10^3/uL (1.4-6.5); Neutrophils Percent Auto 66.9 % (43.0-75.0); Platelet Count 197 10^3/uL (150-450); Red Blood Count 4.52 10^6/uL (4.70-6.10); Red Cell Distribution Width 13.2 % (11.0-15.0); White Blood Count 9.2 10^3/uL (4.0-11.0)
[2025-01-27 19:10] LABS: RBC Urine 0-2 #/HPF (0-2); WBC Urine 0-2 #/HPF (NONE SEEN)
[2025-01-27 19:11] LABS: Bacteria Urine NONE SEEN #/HPF (NONE SEEN); Cast Seen? NONE SEEN #/LPF (NONE SEEN); Crystals Seen? None Seen #/HPF (None Seen); Mucus Urine NONE SEEN (NONE SEEN); Squamous Epithelial Cell Urine FEW #/LPF (NONE/RARE); Urine Culture Indicated NO
[2025-01-27 19:13] VITALS: O2SAT 95
[2025-01-27 19:15] VITALS: BP 180/80; PULSE 65; O2SAT 95
[2025-01-27 19:26] LABS: Alanine Aminotransferase 40 U/L (16-63); Albumin Globulin Ratio 1.6; Albumin Level 3.6 g/dL (3.4-5.0); Alkaline Phosphatase 74 U/L (46-116); Anion Gap 6.9; Aspartate Amino Transferase 28 U/L (15-37); BUN Creatinine Ratio 7.8; Bilirubin Total 0.5 mg/dL (0.2-1.0); Carbon Dioxide 32.3 mmol/L (21.0-32.0); Chloride 102 mmol/L (98-107); Estimated GFR (African America >60 (>=60 mL/min/1.73m^2); Estimated GFR (Non-African Ame >60 (>=60 mL/min/1.73m^2); Globulin 2.3 g/dL; Glucose 184 mg/dL (74-106); Potassium 3.2 mmol/L (3.5-5.1); Sodium 138 mmol/L (136-145); Total Protein 5.9 g/dL (6.4-8.2)
[2025-01-27 20:24] VITALS: BP 200/80
[2025-01-27] MEDS: LOSARTAN POTASSIUM 50 MG TABLET 100 MG PO (20:24)
[2025-01-27] MEDS: HYDROCHLOROTHIAZIDE 25 MG TABLET PO (20:24)
[2025-01-27] MEDS: ALBUTEROL SULFATE 200 PUFF/6.7 GM INHALER IH (20:31)
[2025-01-27 20:32] VITALS: BP 200/80; PULSE 74; O2SAT 96
== END 2025-01-27 20:35 | disposition home or self-care (01) ==
PROVIDERS: Emergency Provider Emergency Medicine
DX: J44.1 Chronic obstructive pulmonary disease with (acute) exacerbation (principal); R10.9 Unspecified abdominal pain; Z76.0 Encounter for issue of repeat prescription; R06.02 Shortness of breath; F17.210 Nicotine dependence, cigarettes, uncomplicated; I10 Essential (primary) hypertension
CPT/HCPCS: 36415; 74176; 80053; 81001; 85025; 94640; 99284; J1885

== ENCOUNTER 2025-01-29 16:23 | Emergency (ER) | payer MEDICARE, SELFPAY ==
--- OUTSIDE RECORDS SUMMARY | 2025-01-29 16:32 | XMS_ITS | CCD ---
Author Organization [facility] CliniSyoh Care Team Providers Care Home Stager Name Role Phone REQUEST, DR NONE LISTED [...] source) Penicillin Drug Allergy [facility] Repository Problems Active Problems Problem [...] Other prison (current) drug therapy; Translations: [OTH MCC CURRENT [...] 0.0 103/ul Normal 0.0-0.1 [facility] Comment on above: Performed By: #### C BC ####[facility] [address]phcksmqxu[address] [place] [address]Dr. Garima Pulliam Basophils/100 WBC (Bld) 0.3 % Normal 0.2-2.0 [facility] Comment on above: Performed By: #### C BC ####[facility] Pwicplzmlq[address] [place] [address]DrAdalberto Pulliam EO # 0.3 103/ul Normal 0.0-0.7 [facility] Comment on above: Performed By: #### C BC ####[facility] Tnsn[address]vir[address] [place], [place] [address]Dr. Garima Pulliam Eosinophils/100 WBC (Bld) 2.8 % Normal 0.9-7.0 [facility] Comment on above: Performed By: #### C BC ####[facility] Uebqlpdliq[address] [place] [address]Dr. Garima Pulliam Erythrocyte distribution width (RBC) [Ratio] 13.4 % Normal 11.0-15.0 [facility] Comment on above: Performed By: #### C BC ####[facility] Ehihtduqjm[address] [place] [address]Dr. Garima Pulliam Hematocrit (Bld) [Volume fraction] 45.7 % Normal 42.0-54.0 [facility] Comment on above: Performed By: #### C BC ####[facility] Gzexkkouvj[address] [place] [address]Dr. Garima Pulliam Hemoglobin (Bld) [Mass/Vol] 15.2 g/dL Normal 14.0-18.0 [facility] Comment on above: Performed By: #### C BC ####[facility] Cvvycjnhmy[address] [place] [address]Dr. Garima Pulliam IG # 0.02 10e3/ul Normal 0.00-0.03 [facility] Comment on above: Performed By: #### C BC ####[facility] Stvbjxkbgu4[address] [place] [address]Dr. Garima Pulliam IG % 0.2 % Normal 0.0-0.5 [facility] Comment on above: Performed By: #### C BC ####[facility] Gjcbvffmsc[address] [place] [address]Dr. Garima Pulliam LYMPH # 2.1 103/ul Normal 1.2-3.8 [facility] Comment on above: Performed By: #### C BC ####[facility] Letwfptbtn2812 [place] [address]Dr. Garima Pulliam Lymphocytes/100 WBC (Bld) 23.7 % Normal 20.5-60.0 [facility] Comment on above: Performed By: #### C BC ####[facility] Eylfapgx[address]27[address] [place] [address]Dr. Garima Heraclio MANUAL DIFF REQ NO Normal [facility] Comment on above: Performed By: #### C BC ####[facility] Xepjsupeks[address] [place] [address]Dr. Garima Pulliam MCH (RBC) [Entitic mass] 30.4 pg Normal 25.9-34.0 [facility] Comment on above: Performed By: #### C BC ####[facility] Gjqtdpxsyc[address] [place] [address]Dr. Garima Heraclio MCHC (RBC) [Mass/Vol] 33.3 g/dL Normal 29.9-35.2 [facility] Comment on above: Performed By: #### C BC ####[facility] Rsgqcjwh[address] [place], [place] [address]Dr. Chapisrenu Pulliam MCV (RBC) [Entitic vol] 91.4 fL Normal 80.0-94.0 [facility] Comment on above: Performed By: #### C BC ####[facility] Swklwcs[address]ms[address] [place], [place] [address]Dr. Garima Heraclio MONO # 0.7 103/ul Normal 0.3-0.8 [facility] Comment on above: Performed By: #### C BC ####[facility] Xvbmazfohn[address] [place], [place] [address]Dr. Chapisrenu Pulliam Monocytes/100 WBC (Bld) 8.3 % Normal 1.7-12.0 [facility] Comment on above: Performed By: #### C BC ####[facility] Pebkbweazt[address] [place] [address]Dr. Chapisrenu Heraclio NEUT # 5.8 103/ul Normal 1.4-6.5 [facility] Comment on above: Performed By: #### C BC ####[facility] Ikolfyhjma[address] [place], [place] [address]Dr. Garima Pulliam Neutrophils/100 WBC (Bld) 64.7 % Normal 43.0-75.0 [facility] Comment on above: Performed By: #### C BC ####[facility] Oisirdyill8[address] [place] [address]Dr. Garima Pulliam Platelet mean volume (Bld) [Entitic vol] 8.6 fL Critically low 9.5-13.5 [facility] Comment on above: Performed By: #### C BC ####[facility] Yqdchjbonp8[address] [place] [address]Dr. Garima Pulliam PLT 230 103/ul Normal 150-450 [facility] Comment on above: Performed By: #### C BC ####[facility] Qkxsxbriwc7678 [place] [address]Dr. Chapisrenu Heraclio RBC 5.00 106/ul Normal 4.70-6.10 [facility] Comment on above: Performed By: #### C BC ####[facility] Socycirnof72[address] [place] [address]Dr. Garima Heraclio WBC 9.0 103/ul Normal 4.0-11.0 [facility] Comment on above: Performed By: #### C BC ####[facility] Ldmlenahyd6661 [place] [address]Dr. Garima Pulliam MAGNESIUMon 04-04-2023 Magnesium [Mass/Vol] 1.8 mg/dL Normal 1.8-2.4 [facility] Comment on above: Performed By: #### M G ####[facility] Oikkywlous[address] [place] [address]Dr. Chapisrenu Pulliam PROF 14(COMP METB)on 023 Albumin [Mass/Vol] 3.8 g/dL Normal 3.4-5.0 [facility] Comment on above: Performed By: #### C MP ####[facility] Paqaxydmtm9[address] [place] [address]Dr. Garima Pulliam Albumin/Globulin [Mass ratio] 1.2 {ratio} Normal [facility] Comment on above: Performed By: #### C MP ####[facility] Bgosaivtpw1622 [place] [address]Dr. Garima Heraclio ALP [Catalytic activity/Vol] 84 U/L Normal 46-116 [facility] Comment on above: Performed By: #### C MP ####[facility] Klgewmrpeh7723 [place] [id number]. Garima Pulliam ALT [Catalytic activity/Vol] 31 U/L Normal 16-63 [facility] Comment on above: Performed By: #### C MP ####[facility] Prlnoaesgm4465 [place] [address]Dr. Garima Pulliam Anion gap [Moles/Vol] 12.2 mmol/L Normal [facility] Comment on above: Performed By: #### C MP ####[facility] Sxulolajav6345 [place] [address]Dr. Garima Pulliam AST [Catalytic activity/Vol] 23 U/L Normal 15-37 [facility] Comment on above: Performed By: #### C MP ####[facility] Aqklmsmxsy[address] [place], [place] [address]Dr. Garima Pulliam Bilirubin [Mass/Vol] 0.5 mg/dL Normal 0.2-1.0 [facility] Comment on above: Performed By: #### C MP ####[facility] Mqwuovenwf[address] [place], [place] [address]Dr. Garima Pulliam Calcium [Mass/Vol] 9.2 mg/dL Normal 8.5-10.1 [facility] Comment on above: Performed By: #### C MP ####[facility] Mprufeyipa[address] [place], [place] [address]Dr. Garima Pulliam Chloride [Moles/Vol] 103 mmol/L Normal 98-107 [facility] Comment on above: Performed By: #### C MP ####[facility] Bobvfxkfff1474 [place] [address]Dr. Garima Pulliam CO2 [Moles/Vol] 28.5 mmol/L Normal 21.0-32.0 The [facility] Comment on above: Performed By: #### C MP ####[facility] Qixmsrrbfq[address] [place], [place] [address]Dr. Garima Pulliam Creatinine [Mass/Vol] 0.74 mg/dL Normal 0.70-1.30 [facility] Comment on above: Performed By: #### C MP ####[facility] Blgkcwfidn6943 [place] [id number]. Garima Pulliam EGFR-AF [place] >60 Normal >=60 The [facility] Comment on above: Performed By: #### C MP ####[facility] Rwwrpyzssm14[address] [place] [address]Dr. Garima Heraclio EGFR-NON AF [place] >60 Normal >=60 [facility] Comment on above: Performed By: #### C MP ####[facility] Musnmqpuuk5031 [place] [id number]. Garima Heraclio Globulin (S) [Mass/Vol] 3.1 g/dL Normal [facility] Comment on above: Performed By: #### C MP ####[facility] Raxoikrobh[address] [place], [place] [address]Dr. Garima Heraclio Glucose [Mass/Vol] 93 mg/dL Normal 74-106 The [facility] Comment on above: Performed By: #### C MP ####[facility] Zbqzhjhzuv[address] [place], [place] [address]Dr. Garima Heraclio Potassium [Moles/Vol] 3.7 mmol/L Normal 3.5-5.1 [facility] Comment on above: Performed By: #### C MP ####[facility] Qyfzxgwxka[address] [place], [place] [address]Dr. Garima Heraclio Protein [Mass/Vol] 6.9 g/dL Normal 6.4-8.2 The [facility] Comment on above: Performed By: #### C MP ####[facility] Wpztnilpui[address] [place], [place] [address]Dr. Garima Heraclio Sodium [Moles/Vol] 140 mmol/L Normal 136-145 The [facility] Comment on above: Performed By: #### C MP ####[facility] Zerutbeqai83[address] [place], [place] [address]Dr. Graima Pulliam Urea nitrogen [Mass/Vol] 8.0 mg/dL Normal 7.0-18.0 [facility] Comment on above: Performed By: #### C MP ####[facility] Ogiwtixsan96[address] [place], [place] [address]Dr. Garima Pulliam Urea nitrogen/Creatinine [Mass ratio] 10.8 mg/mg Normal [facility] Comment on above: Performed By: #### C DAVID ####[facility] Ugohubvcvx5[address] [place] [address]Dr. Garima Pulliam AMMONIAon 03-30-2023 Ammonia (P) [Moles/Vol] 11 umol/L Normal 11-32 [facility] Comment on above: Performed By: #### A MM ####[facility] Rpkienwmgg[address] [place], [place] [address]Dr. Garima Pulliam CARDIAC NASH ADMITon 023 CK [Catalytic activity/Vol] 232 U/L Normal 39-308 [facility] Comment on above: Performed By: #### C NANCY HERNANDEZ ####[facility] Ewsjderusx2815 [place] [address]Dr. Chapisrenu Pulliam CK.MB [Mass/Vol] 4.83 ng/mL Critically high <=3.60 [facility] Comment on above: Performed By: #### C NANCY HERNANDEZ ####[facility] Ruysxnev[address] [place], [place] [address]Dr. Garima Pulliam HSTROP 10.5 pg/mL Normal 4.0-76.1 [facility] Comment on above: Result Comment: CUT- OFF POINTS HAVE BEEN ESTABLISHED BASED ON THE FOURTH UNIVERSAL DEFINITIONS OF MYOCARDIALINFARCTION. THE UPPER REFERENCE LIMIT (URL) OF TROPONIN, DEFINED THE 99TH PERCENTILE OFcTnI DISTRIBUTION IN A REFERENCE POPULATION, HAS BEEN CONFIRMED THE DECISION THRESHOLDFOR [place] DIAGNOSIS. Performed By: #### C NANCY HERNANDEZ ####[facility] Kctxx[address]axym[address] [place], [place] [address]Dr. Garima Heraclio DORIS 79 ng/mL Normal 16-96 [facility] Comment on above: Performed By: #### C NANCY HERNANDEZ ####[facility] Owpdmmolqn[address] [place], [place] [address]Dr. Garima Heraclio CBC AUTO DIFFon 03-30-2023 BASO # 0.0 103/ul Normal 0.0-0.1 [facility] Comment on above: Performed By: #### C BC ####[facility] Aljnjpgmhj9276 [place] [id number]. Garima Pulliam Basophils/100 WBC (Bld) 0.1 % Critically low 0.2-2.0 [facility] Comment on above: Performed By: #### C BC ####[facility] Wunqchledt5057 [place] [address]Dr. Garima Pulliam EO # 0.3 103/ul Normal 0.0-0.7 [facility] Comment on above: Performed By: #### C BC ####[facility] J[address]su[address] [place], [place] [address]Dr. Garima Pulliam Eosinophils/100 WBC (Bld) 3.3 % Normal 0.9-7.0 [facility] Comment on above: Performed By: #### C BC ####[facility] [address]ve[address] [place], [place] [address]Dr. Garima Pulliam Erythrocyte distribution width (RBC) [Ratio] 13.5 % Normal 11.0-15.0 [facility] Comment on above: Performed By: #### C BC ####[facility] [address]qry[address] [place], [place] [address]Dr. Garima Pulilam Hematocrit (Bld) [Volume fraction] 42.9 % Normal 42.0-54.0 [facility] Comment on above: Performed By: #### C BC ####[facility] Asmp[address]fsbe[address] [place], [place] [address]Dr. Garima Pulliam Hemoglobin (Bld) [Mass/Vol] 13.9 g/dL Critically low 14.0-18.0 [facility] Comment on above: Performed By: #### C BC ####[facility] Keiiwctlya[address]107 [place] [address]Dr. Garima Pulliam IG # 0.01 10e3/ul Normal 0.00-0.03 [facility] Comment on above: Performed By: #### C BC ####[facility] [address]awjdouuom[address] [place], [place] [address]Dr. Garima Pulliam IG % 0.1 % Normal 0.0-0.5 [facility] Comment on above: Performed By: #### C BC ####[facility] Ytjadlhhnz7640 [place] [address]Dr. Garima Pulliam LYMPH # 1.7 103/ul Normal 1.2-3.8 [facility] Comment on above: Performed By: #### C BC ####[facility] Bsmkstbfmt0927 [place], [place] [address]Di. Garima Pulliam Lymphocytes/100 WBC (Bld) 22.8 % Normal 20.5-60.0 [facility] Comment on above: Performed By: #### C BC ####[facility] Xpcbizqspt5016 [place] [address]Dr. Garima Heraclio MANUAL DIFF REQ NO Normal [facility] Comment on above: Performed By: #### C BC ####[facility] Tqwffthxll1032 [place] [address]Dr. Garima Heraclio MCH (RBC) [Entitic mass] 30.5 pg Normal 25.9-34.0 [facility] Comment on above: Performed By: #### C BC ####[facility] Nvlnysuzml7735 [place] [address]Dr. Garima Pulliam MCHC (RBC) [Mass/Vol] 32.4 g/dL Normal 29.9-35.2 [facility] Comment on above: Performed By: #### C BC ####[facility] Paxjjlxiib9873 [place] [address]Dr. Garima Heraclio MCV (RBC) [Entitic vol] 94.1 fL Critically high 80.0-94.0 [facility] Comment on above: Performed By: #### C BC ####[facility] Yiphajakji6028 [place] [address]Dr. Garima Heraclio MONO # 0.7 103/ul Normal 0.3-0.8 [facility] Comment on above: Performed By: #### C BC ####[facility] Hxrlglnqbj8520 [place] [address]Dr. Garima Heraclio Monocytes/100 WBC (Bld) 8.6 % Normal 1.7-12.0 [facility] Comment on above: Performed By: #### C BC ####[facility] Kxvqmrzefb6759 [place] [address]Dr. Garima Pulliam NEUT # 4.9 103/ul Normal 1.4-6.5 [facility] Comment on above: Performed By: #### C BC ####[facility] Zriiczdnst1314 [place] [address]Dr. Garima Pulliam Neutrophils/100 WBC (Bld) 65.1 % Normal 43.0-75.0 [facility] Comment on above: Performed By: #### C BC ####[facility] Hpxltuzenj6641 [place] [address]Dr. Garima Pulliam Platelet mean volume (Bld) [Entitic vol] 8.5 fL Critically low 9.5-13.5 [facility] Comment on above: Performed By: #### C BC ####[facility] [address]ihyzhlbv[address] [place] [address]Dr. Garima Pulliam PLT 219 103/ul Normal 150-450 [facility] Comment on above: Performed By: #### C BC ####[facility] Lbqndsbtal4499 [place] [address]Dr. Garima Pulliam RBC 4.56 106/ul Critically low 4.70-6.10 [facility] Comment on above: Performed By: #### C BC ####[facility] Lzeeqqyjpk8796 [place] [address]Dr. Garima Pulliam WBC 7.6 103/ul Normal 4.0-11.0 [facility] Comment on above: Performed By: #### C BC ####[facility] Bnqegriwig6991 [place] [address]Dr. Garima Pulliam LACTATE/LACTIC ACIDon 2022 Lactate [Moles/Vol] 1.2 mmol/L Normal 0.4-2.0 [facility] Comment on above: Performed By: #### L ACT ####[facility] Awofvozzcy6390 [place] [id number]. Garima Pulliam MAGNESIUMon 03-30-2023 Magnesium [Mass/Vol] 1.8 mg/dL Normal 1.8-2.4 [facility] Comment on above: Performed By: #### M G ####[facility] Iyasvpmcby[address] [place] [address]Dr. Garima Pulliam PROF 14(COMP METB)on 023 Albumin [Mass/Vol] 3.5 g/dL Normal 3.4-5.0 [facility] Comment on above: Performed By: #### C DAVID, CMAANA ROSA ####[facility] Zxxkeufhtb8652 [place] [address]Dr. Garima Pulliam Albumin/Globulin [Mass ratio] 1.2 {ratio} Normal [facility] Comment on above: Performed By: #### C DAVID, CMAANA ROSA ####[facility] Btnqcfutwc7364 [place] [address]Dr. Garima Pulliam ALP [Catalytic activity/Vol] 85 U/L Normal 46-116 [facility] Comment on above: Performed By: #### C DAVID, CMAANA ROSA ####[facility] Ift[address]ooa[address] [place], [place] [address]Dr. Garima Pulliam ALT [Catalytic activity/Vol] 29 U/L Normal 16-63 [facility] Comment on above: Performed By: #### C DAVID, CMAANA ROSA ####[facility] Bnolmtuser8908 [place] [address]Dr. Garima Pulliam Anion gap [Moles/Vol] 8.0 mmol/L Normal [facility] Comment on above: Performed By: #### C DAVID, CMAANA ROSA ####[facility] Egrjgvmubj1637 [place] [address]Dr. Garima Pulliam AST [Catalytic activity/Vol] 18 U/L Normal 15-37 [facility] Comment on above: Performed By: #### C DAVID, CMADM ####[facility] Pqwdxjnsfs6759 [place] [address]Dr. Garima Pulliam Bilirubin [Mass/Vol] 0.4 mg/dL Normal 0.2-1.0 [facility] Comment on above: Performed By: #### C DAVID, CMADM ####[facility] Zzdgqmdncz4880 [place] [address]Dr. Garima Pulliam Calcium [Mass/Vol] 8.8 mg/dL Normal 8.5-10.1 [facility] Comment on above: Performed By: #### C DAVID, NANCY ####[facility] Pyxcrewytk[address] [place] [address]Dr. Chapisrenu Pulliam Chloride [Moles/Vol] 108 mmol/L Critically high 98-107 [facility] Comment on above: Performed By: #### C DAVID, NANCY ####[facility] Owhiyqjgkn4660 [place] [address]Dr. Garima Pulliam CO2 [Moles/Vol] 29.6 mmol/L Normal 21.0-32.0 [place] Comment on above: Performed By: #### C NANCY HERNANDEZ ####[facility] [address]bdwgbk[address] [place], [place] [address]Dr. Garima Pulliam Creatinine [Mass/Vol] 0.77 mg/dL Normal 0.70-1.30 [facility] Comment on above: Performed By: #### C NANCY HERNANDEZ ####[facility] Npvrfeufzb[address] [place], [place] [address]Dr. Garima Heraclio EGFR-AF [place] >60 Normal >=60 [place] Comment on above: Performed By: #### C NANCY HERNANDEZ ####[facility] [address]zaqueqbp[address] [place], [place] [address]Dr. Gariam Heracloi EGFR-NON AF [place] >60 Normal >=60 [facility] Comment on above: Performed By: #### C NANCY HERNANDEZ ####[facility] Osqphcqzwc6594 [place] [address]Dr. Garima Pulliam Globulin (S) [Mass/Vol] 2.8 g/dL Normal [facility] Comment on above: Performed By: #### C NANCY HERNANDEZ ####[facility] Ryvwlgqkgr[address]67 [place] [address]Dr. Garima Pulliam Glucose [Mass/Vol] 207 mg/dL Critically high 74-106 [facility] Comment on above: Performed By: #### C NANCY HERNANDEZ ####[facility] E[address]mpp[address] [place], [place] [address]Dr. Garima Pulliam Potassium [Moles/Vol] 4.6 mmol/L Normal 3.5-5.1 [facility] Comment on above: Performed By: #### C DAVID, NANCY ####[facility] Yexxhjoaad15[address] [place] [address]Dr. Garima Pulliam Protein [Mass/Vol] 6.3 g/dL Critically low 6.4-8.2 Th e [facility] Comment on above: Performed By: #### C DAVID, NANCY ####[facility] Sktvtciuen6585 [place] [address]Dr. Garima Pulliam Sodium [Moles/Vol] 141 mmol/L Normal 136-145 [facility] Comment on above: Performed By: #### C DAVID, NANCY ####[facility] Saohcuztap[address]46 [place] [address]Dr. Garima Pulliam Urea nitrogen [Mass/Vol] 9.0 mg/dL Normal 7.0-18.0 [facility] Comment on above: Performed By: #### C DAVID, NANCY ####[facility] Cvhiytuxng7953 [place] [address]Dr. Garima Pulliam Urea nitrogen/Creatinine [Mass ratio] 11.7 mg/mg Normal [facility] Comment on above: Performed By: #### C DAVID, NANCY ####[facility] Flasaqwmnn23[address] [place] [address]Dr. aGrima Pulliam XR CHEST 1 Von 03-30-2023 XR CHEST 1 V Normal [facility] BNPon 03-27-2023 Natriuretic peptide B (Bld) [Mass/Vol] 251.0 pg/mL Normal <=900.0 [facility] Comment on above: Performed By: #### C MP, BNP, LIPID ####[facility] Hrqfkaqhnm55[address] [place] [address]Dr. Garima Pulliam GLYCOHEMOGLOBIN A1Con 2022 ADA RECOMMENDATION SEE BELOW Normal [facility] Comment on above: Result Comment: ADA RECOMMENDED LIMIT 4.0 - 6.0 ADA THERAPEUTIC TARGET < 7.0 ACTION SUGGESTED > 7.0 Performed By: #### A 1C ####[facility] Oyksjkrjru[address] [place] [address]Dr. Garima Pulliam Glucose [Mass/Vol] 180 mg/dL Normal [facility] Comment on above: Performed By: #### A 1C ####[facility] Ctyguyjgjw[address] [place], [place] [address]Dr. Chapisrenu Pulliam HbA1c (Bld) [Mass fraction] 7.9 % Critically high 4.5-6.2 [facility] Comment on above: Performed By: #### A 1C ####[facility] Diwywacbdp[address] [place], [place] [address]Dr. Garima Pulliam HEMOGRAM AND PLATELon 2022 Hematocrit (Bld) [Volume fraction] 45.7 % Normal 42.0-54.0 [facility] Comment on above: Performed By: #### H H ####[facility] Xbxdyzwvgq[address] [place], [place] [address]Dr. Garima Pulliam Hemoglobin (Bld) [Mass/Vol] 15.1 g/dL Normal 14.0-18.0 [facility] Comment on above: Performed By: #### H H ####[facility] Upewfikc[address] [place], [place] [address]Dr. Garima Pulliam MCH (RBC) [Entitic mass] 30.0 pg Normal 25.9-34.0 [facility] Comment on above: Performed By: #### H H ####[facility] Mqokiswayx[address] [place], [place] [address]Dr. Garima Pulliam MCHC (RBC) [Mass/Vol] 33.0 g/dL Normal 29.9-35.2 [facility] Comment on above: Performed By: #### H H ####[facility] Yedncoww[address] [place], [place] [address]Dr. Garima Pulliam MCV (RBC) [Entitic vol] 90.7 fL Normal 80.0-94.0 [facility] Comment on above: Performed By: #### H H ####[facility] Abbmgziemt[address] [place], [place] [address]Dr. Garima Pulliam PLT 222 103/ul Normal 150-450 [facility] Comment on above: Performed By: #### H H ####[facility] [address]wsr[address] [place] [id number]. Garima Pulliam RBC 5.04 106/ul Normal 4.70-6.10 [facility] Comment on above: Performed By: #### H H ####[facility] Qmtrntypmp[address] [place] [id number]. Garima Pulliam WBC 8.7 103/ul Normal 4.0-11.0 [facility] Comment on above: Performed By: #### H H ####[facility] Wshqyuvmtn[address] [place] [id number]. Garima Pulliam LIPID PROFILEon 03-27-2023 CHOL-HDL RATIO NORM SEE BELOW Normal [facility] Comment on above: Result Comment: 3.3 - 4.4 LOW RISK 4.4 - 7.1 AVERAGE RISK 7.1 - 11.0 MODERATE RISK >11.0 HIGH RISK Performed By: #### C MP, BNP, LIPID ####[facility] [address] [place] [address]Dr. Garima Pulliam Cholesterol [Mass/Vol] 113 mg/dL Normal <=200 [facility] Comment on above: Performed By: #### C MP, BNP, LIPID ####[facility] [address]avjtkm[address] [place] [address]Dr. Garima Pulliam Cholesterol in HDL [Mass/Vol] 51 mg/dL Normal 40-60 [facility] Comment on above: Performed By: #### C MP, BNP, LIPID ####[facility] [address]wsuip[address] [place] [address]Dr. Garima Pulliam Cholesterol in LDL [Mass/Vol] 49.8 mg/dL Normal [facility] Comment on above: Performed By: #### C MP, BNP, LIPID ####[facility] Cjcqikswel[address] [place] [address]Dr. Garima Pulliam Cholesterol.total/Cho lesterol in HDL [Mass ratio] 2.2 {ratio} Normal [facility] Comment on above: Performed By: #### C MP, BNP, LIPID ####[facility] Z[address] [place] [address]Dr. Garima Pulliam HDL NORMAL > or = 60 mg/dl - LOW CARDIOVASCULAR RISK <40 mg/dl - HIGH CARDIOVASCULAR RISK Normal [facility] Comment on above: Performed By: #### C MP, BNP, LIPID ####[facility] [address] [place] [address]Dr. Garima Pulliam LDL CALC NORMAL SEE BELOW Normal [facility] Comment on above: Result Comment: <100 mg/dl OPTIMAL 100 - 129 mg/dl NEAR OR ABOVE OPTIMAL 130 - 159 mg/dl BORDERLINE HIGH 160 - 189 mg/dl HIGH >190 mg/dl VERY HIGH Performed By: #### C MP, BNP, LIPID ####[facility] [address]pr[address] [place] [address]Dr. Garima Pulliam Triglyceride [Mass/Vol] 61 mg/dL Normal <=150 [facility] Comment on above: Performed By: #### C MP, BNP, LIPID ####[facility] K[address]ncv[address]li[address] [place] [address]Dr. Garima Pulliam VLDL CALC 12.2 mg/dL Normal [facility] Comment on above: Performed By: #### C MP, BNP, LIPID ####[facility] Jvxuapvyur[address] [place] [address]Dr. Garima Pulliam PROF 14(COMP METB)on 023 Albumin [Mass/Vol] 3.5 g/dL Normal 3.4-5.0 [facility] Comment on above: Performed By: #### C MP, BNP, LIPID ####[facility] D[address]jcffpis[address] [place] [address]Dr. Garima Pulliam Albumin/Globulin [Mass ratio] 1.2 {ratio} Normal [facility] Comment on above: Performed By: #### C MP, BNP, LIPID ####[facility] Ckfhytbqed[address] [place] [address]Dr. Garima Pulliam ALP [Catalytic activity/Vol] 82 U/L Normal 46-116 [facility] Comment on above: Performed By: #### C MP, BNP, LIPID ####[facility] [address]qrahs[address] [place] [address]Dr. Garima Pulliam ALT [Catalytic activity/Vol] 33 U/L Normal 16-63 [facility] Comment on above: Performed By: #### C MP, BNP, LIPID ####[facility] Rfcbaybzpb[address] [place] [address]Dr. Garima Pulliam Anion gap [Moles/Vol] 9.9 mmol/L Normal [facility] Comment on above: Performed By: #### C MP, BNP, LIPID ####[facility] Mhofbmaayd35[address] [place] [address]Dr. Garima Pulliam AST [Catalytic activity/Vol] 24 U/L Normal 15-37 [facility] Comment on above: Performed By: #### C MP, BNP, LIPID ####[facility] Vypfrzbfzd4[address] [place] [address]Dr. Garima Pulliam Bilirubin [Mass/Vol] 0.6 mg/dL Normal 0.2-1.0 [facility] Comment on above: Performed By: #### C MP, BNP, LIPID ####[facility] Ulvdmsjlim[address] [place] [address]Dr. Garima Pulliam Calcium [Mass/Vol] 9.2 mg/dL Normal 8.5-10.1 [facility] Comment on above: Performed By: #### C MP, BNP, LIPID ####[facility] [address] [place] [address]Dr. Garima Pulliam Chloride [Moles/Vol] 106 mmol/L Normal 98-107 [facility] Comment on above: Performed By: #### C MP, BNP, LIPID ####[facility] Dbsrkcchoz[address] [place] [address]Dr. Garima Pulliam CO2 [Moles/Vol] 32.3 mmol/L Critically high 21.0-32.0 [facility] Comment on above: Performed By: #### C MP, BNP, LIPID ####[facility] Rjcpbviggv17[address] [place] [address]Dr. Garima Pulliam Creatinine [Mass/Vol] 0.70 mg/dL Normal 0.70-1.30 [facility] Comment on above: Performed By: #### C MP, BNP, LIPID ####[facility] Eb[address]lnzgbq38[address] [place] [id number]. Garima Pulliam EGFR-AF EAST [place] >60 Normal >=60 [place] Comment on above: Performed By: #### C MP, BNP, LIPID ####[facility] Cuiovyktzp4[address] [place] [id number]. Garima Pulliam EGFR-NON AF E[place] >60 Normal >=60 [facility] Comment on above: Performed By: #### C MP, BNP, LIPID ####[facility] Abzpewqgly[address] [place] [address]Dr. Garima Pulliam Globulin (S) [Mass/Vol] 2.9 g/dL Normal [facility] Comment on above: Performed By: #### C MP, BNP, LIPID ####[facility] [address]qajiiyvo[address] [place] [address]Dr. Garima Pulliam Glucose [Mass/Vol] 111 mg/dL Critically high 74-106 [facility] Comment on above: Performed By: #### C MP, BNP, LIPID ####[facility] Xjiakndzvt7[address] [place] [address]Dr. Garima Pulliam Potassium [Moles/Vol] 4.2 mmol/L Normal 3.5-5.1 [facility] Comment on above: Performed By: #### C MP, BNP, LIPID ####[facility] Xmbucjvgdx[address] [place] [address]Dr. Garima Pulliam Protein [Mass/Vol] 6.4 g/dL Normal 6.4-8.2 [facility] Comment on above: Performed By: #### C MP, BNP, LIPID ####[facility] Mxmvufxcpu[address] [place] [address]Dr. Garima Pulliam Sodium [Moles/Vol] 144 mmol/L Normal 136-145 [facility] Comment on above: Performed By: #### C MP, BNP, LIPID ####[facility] J[address]awxajpp[address] [place] [address]Dr. Garima Pulliam Urea nitrogen [Mass/Vol] 7.0 mg/dL Normal 7.0-18.0 [facility] Comment on above: Performed By: #### C MP, BNP, LIPID ####[facility] [address]ux[address] [place], [place] [address]Dr. Garima Pulliam Urea nitrogen/Creatinine [Mass ratio] 10.0 mg/mg Normal [facility] Comment on above: Performed By: #### C MP, BNP, LIPID ####[facility] Rypbbqes[address] [place], [place] [address]Dr. Garima Pulliam BNPon 03-22-2023 Natriuretic peptide B (Bld) [Mass/Vol] 103.0 pg/mL Normal <=900.0 [facility] Comment on above: Performed By: #### B HELMET HAT SWEATBAND PUNCHER, BMP ####[facility] Neotjiiqwc[address] [place], [place] [address]Dr. Garima Pulliam CBC AUTO DIFFon 03-22-2023 BASO # 0.0 103/ul Normal 0.0-0.1 [facility] Comment on above: Performed By: #### C BC ####[facility] Kcapqlagvr[address] [place], [place] [address]Dr. Garima Heraclio Basophils/100 WBC (Bld) 0.3 % Normal 0.2-2.0 [facility] Comment on above: Performed By: #### C BC ####[facility] Mijqetrsvf[address] [place], [place] [address]Dr. Garima Pulliam EO # 0.2 103/ul Normal 0.0-0.7 [facility] Comment on above: Performed By: #### C BC ####[facility] Ddsybpxfsr[address] [place], [place] [address]Dr. Garima Pulliam Eosinophils/100 WBC (Bld) 2.2 % Normal 0.9-7.0 [facility] Comment on above: Performed By: #### C BC ####[facility] Yymextsxrx[address] [place], [place] [address]Dr. Garima Pulliam Erythrocyte distribution width (RBC) [Ratio] 13.2 % Normal 11.0-15.0 [facility] Comment on above: Performed By: #### C BC ####[facility] Wpiggqokgv9[address] [place] [id number]. Garima Pulliam Hematocrit (Bld) [Volume fraction] 43.4 % Normal 42.0-54.0 [facility] Comment on above: Performed By: #### C BC ####[facility] N[address]wqhrbko[address] [place] [address]Dr. Garima Heraclio Hemoglobin (Bld) [Mass/Vol] 14.3 g/dL Normal 14.0-18.0 [facility] Comment on above: Performed By: #### C BC ####[facility] [address]qojahvhlr[address] [place] [address]Dr. Garima Pulliam IG # 0.02 10e3/ul Normal 0.00-0.03 [facility] Comment on above: Performed By: #### C BC ####[facility] Ifhgtxnbxd1324 [place] [address]Dr. Garima Pulliam IG % 0.3 % Normal 0.0-0.5 [facility] Comment on above: Performed By: #### C BC ####[facility] Zpdeoojvxz[address] [place] [address]Dr. Chapisrenu Pulliam LYMPH # 2.0 103/ul Normal 1.2-3.8 [facility] Comment on above: Performed By: #### C BC ####[facility] Jelsk[address]fcy[address] [place] [address]Dr. Chapisrenu Pulliam Lymphocytes/100 WBC (Bld) 24.8 % Normal 20.5-60.0 [facility] Comment on above: Performed By: #### C BC ####[facility] Haqhxbhizz[address] [place] [address]Dr. Chapisrenu Pulliam MANUAL DIFF REQ NO Normal [facility] Comment on above: Performed By: #### C BC ####[facility] Ikzgdhybra6207 [place] [address]Dr. Garima Heraclio MCH (RBC) [Entitic mass] 30.0 pg Normal 25.9-34.0 [facility] Comment on above: Performed By: #### C BC ####[facility] [address]emkkezrgb[address] [place], [place] [address]Dr. Garima Pulliam MCHC (RBC) [Mass/Vol] 32.9 g/dL Normal 29.9-35.2 [facility] Comment on above: Performed By: #### C BC ####[facility] Flevtuenbp8406 [place] [id number]. Garima Pulliam MCV (RBC) [Entitic vol] 91.0 fL Normal 80.0-94.0 [facility] Comment on above: Performed By: #### C BC ####[facility] Mpqxiohclh6851 [place] [id number]. Garima Heraclio MONO # 0.8 103/ul Normal 0.3-0.8 [facility] Comment on above: Performed By: #### C BC ####[facility] Txikswljlg[address] [place] [address]Dr. Chapisrenu Pulliam Monocytes/100 WBC (Bld) 9.7 % Normal 1.7-12.0 [facility] Comment on above: Performed By: #### C BC ####[facility] A[address]ufqklwt[address] [place] [address]Dr. Garima Pulliam NEUT # 4.9 103/ul Normal 1.4-6.5 [facility] Comment on above: Performed By: #### C BC ####[facility] Vrhffnubpt9704 [place] [id number]. Garima Heraclio Neutrophils/100 WBC (Bld) 62.7 % Normal 43.0-75.0 [facility] Comment on above: Performed By: #### C BC ####[facility] Jetsbcdiup5294 [place] [id number]. Garima Heraclio Platelet mean volume (Bld) [Entitic vol] 8.8 fL Critically low 9.5-13.5 [facility] Comment on above: Performed By: #### C BC ####[facility] Eslbjkosdz75[address] [place] [id number]. Garima Heraclio PLT 198 103/ul Normal 150-450 [facility] Comment on above: Performed By: #### C BC ####[facility] Fpkrcyanyw7466 [place] [phone]. Garima Heraclio RBC 4.77 106/ul Normal 4.70-6.10 [facility] Comment on above: Performed By: #### C BC ####[facility] Pttgobxcjw7598 [place] [id number]. Garima Heraclio WBC 7.9 103/ul Normal 4.0-11.0 [facility] Comment on above: Performed By: #### C BC ####[facility] Cwscchejgv2718 [place] [id number]. Garima Heraclio D-DIMERon 03-22-2023 D-DIMER 0.85 mg/L FEU Critically high <=0.59 [facility] Comment on above: Performed By: #### D DIM ####[facility] [address]jszdsrco25[address] [place] [address]Dr. Garima Pulliam D-DIMER COMMENTS SEE BELOW Normal [facility] Comment on above: Result Comment: [...] Performed By: #### D DIM ####[facility] Dfqxgkzxbg[address] [place], [place] [address]Dr. Garima Pulliam PROF CHEM 8 (BAS METB)on Anion gap [Moles/Vol] 6.9 mmol/L Normal [facility] Comment on above: Performed By: #### B HELMET HAT SWEATBAND PUNCHER, BMP ####[facility] Tjtbsdmouy5215 [place] [address]Dr. Garima Pulliam Calcium [Mass/Vol] 8.9 mg/dL Normal 8.5-10.1 [facility] Comment on above: Performed By: #### B HELMET HAT SWEATBAND PUNCHER, BMP ####[facility] Wbnumhkakw2746 [place] [address]Dr. Garima Pulliam Chloride [Moles/Vol] 101 mmol/L Normal 98-107 [facility] Comment on above: Performed By: #### B HELMET HAT SWEATBAND PUNCHER, BMP ####[facility] Jmgtkqzash217[address] [place], [place] [address]Dr. Chapisrenu Heraclio CO2 [Moles/Vol] 30.7 mmol/L Normal 21.0-32.0 [place] Comment on above: Performed By: #### B HELMET HAT SWEATBAND PUNCHER, BMP ####[facility] Nyettiejwb[address] [place], [place] [address]Dr. Garima Pulliam Creatinine [Mass/Vol] 0.82 mg/dL Normal 0.70-1.30 [facility] Comment on above: Performed By: #### B HELMET HAT SWEATBAND PUNCHER, BMP ####[facility] Myqqevbpjd8[address] [place], [place] [address]Dr. Garima Pulliam EGFR-AF [place] >60 Normal >=60 [facility] Comment on above: Performed By: #### B HELMET HAT SWEATBAND PUNCHER, BMP ####[facility] Lxbthtdiun[address] [place], [place] [address]Dr. Chapisrenu Heraclio EGFR-NON AF [place] >60 Normal >=60 [facility] Comment on above: Performed By: #### B HELMET HAT SWEATBAND PUNCHER, BMP ####[facility] Rqxakcawwv[address] [place], [place] [address]Dr. Garima Pulliam Glucose [Mass/Vol] 339 mg/dL Critically high 74-106 [facility] Comment on above: Performed By: #### B HELMET HAT SWEATBAND PUNCHER, BMP ####[facility] Ctwppbzwti[address] [place], [place] [address]Dr. Garima Pulliam Potassium [Moles/Vol] 3.6 mmol/L Normal 3.5-5.1 [facility] Comment on above: Performed By: #### B HELMET HAT SWEATBAND PUNCHER, BMP ####[facility] Ifzvpvhkrk[address] [place], [place] [address]Dr. Garima Pulliam Sodium [Moles/Vol] 135 mmol/L Critically low 136-145 [facility] Comment on above: Performed By: #### B HELMET HAT SWEATBAND PUNCHER, BMP ####[facility] Dfbtzyehcs[address] [place], [place] [address]Dr. Garima Pulliam Urea nitrogen [Mass/Vol] 11.0 mg/dL Normal 7.0-18.0 [facility] Comment on above: Performed By: #### B HELMET HAT SWEATBAND PUNCHER, BMP ####[facility] Euikmkdaxs[address] [place], [place] [address]Dr. Garima Pulliam Urea nitrogen/Creatinine [Mass ratio] 13.4 mg/mg Normal [facility] Comment on above: Performed By: #### B HELMET HAT SWEATBAND PUNCHER, BMP ####[facility] Peddqdcbss[address] [place], [place] [address]Dr. Garima Pulliam US VERONICA DOP LEG BILon 023 US VERONICA DOP LEG BENOIT Normal [facility] BNPon 03-18-2023 Natriuretic peptide B (Bld) [Mass/Vol] 226.0 pg/mL Normal <=900.0 [facility] Comment on above: Performed By: #### B HELMET HAT SWEATBAND PUNCHER, BMP ####[facility] Ciyihjpsro[address] [place], [place] [address]Dr. Garima Pulliam CBC AUTO DIFFon 03-18-2023 BASO # 0.0 103/ul Normal 0.0-0.1 [facility] Comment on above: Performed By: #### C BC ####[facility] Nmrzxcyvyg[address] [place], [place] [address]Dr. Garima Heraclio Basophils/100 WBC (Bld) 0.2 % Normal 0.2-2.0 [facility] Comment on above: Performed By: #### C BC ####[facility] Rasduawkvf[address] [place], [place] [address]Dr. Garima Pulliam EO # 0.3 103/ul Normal 0.0-0.7 [facility] Comment on above: Performed By: #### C BC ####[facility] Hnjgabblkk[address] [place], [place] [address]Dr. Garima Heraclio Eosinophils/100 WBC (Bld) 2.5 % Normal 0.9-7.0 [facility] Comment on above: Performed By: #### C BC ####[facility] Lbrnvkpqlb[address] [place], [place] [address]Dr. Garima Heraclio Erythrocyte distribution width (RBC) [Ratio] 13.2 % Normal 11.0-15.0 [facility] Comment on above: Performed By: #### C BC ####[facility] Onaijdcpam[address] [place] [address]DrAdalberto Pulliam Hematocrit (Bld) [Volume fraction] 45.8 % Normal 42.0-54.0 [facility] Comment on above: Performed By: #### C BC ####[facility] Xgdstnymrg2412 [place] [address]DrAdalberto Pulliam Hemoglobin (Bld) [Mass/Vol] 15.3 g/dL Normal 14.0-18.0 [facility] Comment on above: Performed By: #### C BC ####[facility] Xbnmglgnlc[address] [place], [place] [address]DrAdalberto Pulliam IG # 0.02 10e3/ul Normal 0.00-0.03 [facility] Comment on above: Performed By: #### C BC ####[facility] Xgmzlitemu[address] [place], [place] [address]DrAdalberto Pulliam IG % 0.2 % Normal 0.0-0.5 [facility] Comment on above: Performed By: #### C BC ####[facility] Tmaklzgame[address] [place], [place] [address]DrAdalberto Pulliam LYMPH # 1.8 103/ul Normal 1.2-3.8 [facility] Comment on above: Performed By: #### C BC ####[facility] Luuojvujdm[address] [place], [place] [address]DrAdalberto Pulliam Lymphocytes/100 WBC (Bld) 18.3 % Critically low 20.5-60.0 [facility] Comment on above: Performed By: #### C BC ####[facility] Adondfxcdx[address] [place], [place] [address]DrAdalberto Pulliam MANUAL DIFF REQ NO Normal [facility] Comment on above: Performed By: #### C BC ####[facility] Ohufibdxxz[address] [place] [address]DrAdalberto Pulliam MCH (RBC) [Entitic mass] 30.5 pg Normal 25.9-34.0 [facility] Comment on above: Performed By: #### C BC ####[facility] Taenxdaijf[address]3 [place] [address]DrAdalberto Pulliam MCHC (RBC) [Mass/Vol] 33.4 g/dL Normal 29.9-35.2 [facility] Comment on above: Performed By: #### C BC ####[facility] [address]kfnuzobd[address] [place] [address]DrAdalberto Pulliam MCV (RBC) [Entitic vol] 91.2 fL Normal 80.0-94.0 [facility] Comment on above: Performed By: #### C BC ####[facility] Symhmsgeyc[address] [place], [place] [address]DrAdalberto Pulliam MONO # 0.8 103/ul Normal 0.3-0.8 [facility] Comment on above: Performed By: #### C BC ####[facility] Ueziuiygix[address] [place], [place] [address]DrAdalberto Pulliam Monocytes/100 WBC (Bld) 7.6 % Normal 1.7-12.0 [facility] Comment on above: Performed By: #### C BC ####[facility] G[address]hrwofm[address] [place], [place] [address]DrAdalberto Pulliam NEUT # 7.0 103/ul Critically high 1.4-6.5 [facility] Comment on above: Performed By: #### C BC ####[facility] Wgopvtgdzu[address] [place], [place] [address]DrAdalberto Pulliam Neutrophils/100 WBC (Bld) 71.2 % Normal 43.0-75.0 [facility] Comment on above: Performed By: #### C BC ####[facility] Uopvnrdgvk[address] [place], [place] [address]DrAdalberto Pulliam Platelet mean volume (Bld) [Entitic vol] 8.9 fL Critically low 9.5-13.5 [facility] Comment on above: Performed By: #### C BC ####[facility] Mzqhqjgbhm[address] [place], [place] [address]DrAdalberto Pulliam PLT 217 103/ul Normal 150-450 [facility] Comment on above: Performed By: #### C BC ####[facility] Pkhwkackkg6451 [place] [address]Dr. Garima Heraclio RBC 5.02 106/ul Normal 4.70-6.10 [facility] Comment on above: Performed By: #### C BC ####[facility] Cjkhytesgg[address] [place], [place] [address]Dr. Garima Pulliam WBC 9.8 103/ul Normal 4.0-11.0 [facility] Comment on above: Performed By: #### C BC ####[facility] Sefoiuewfj22[address] [place], [place] [address]Dr. Garima Heraclio CRPon 03-18-2023 CRP 0.1 mg/dL Normal <=1.0 [facility] Comment on above: Performed By: #### C RP ####[facility] Tdcxvjjras[address] [place], [place] [address]Dr. Garima Heraclio PROF CHEM 8 (BAS METB)on Anion gap [Moles/Vol] 10.4 mmol/L Normal [facility] Comment on above: Performed By: #### B HELMET HAT SWEATBAND PUNCHER, BMP ####[facility] [facility] [address] [place], [place] [address]Dr. Garima Heraclio Calcium [Mass/Vol] 8.8 mg/dL Normal 8.5-10.1 [facility] Comment on above: Performed By: #### B HELMET HAT SWEATBAND PUNCHER, BMP ####[facility] [address] [place], [place] [address]Dr. Garima Heraclio Chloride [Moles/Vol] 97 mmol/L Critically low 98-107 [facility] Comment on above: Performed By: #### B HELMET HAT SWEATBAND PUNCHER, BMP ####[facility] Nycvou[address] [place], [place] [address]Dr. Garima Pulliam CO2 [Moles/Vol] 31.2 mmol/L Normal 21.0-32.0 [place] Comment on above: Performed By: #### B HELMET HAT SWEATBAND PUNCHER, BMP ####[facility] Y[address] [place], [place] [address]Dr. Garima Pulliam Creatinine [Mass/Vol] 0.91 mg/dL Normal 0.70-1.30 [facility] Comment on above: Performed By: #### B HELMET HAT SWEATBAND PUNCHER, BMP ####[facility] [address] [place] [address]Dr. Garima Pulliam EGFR-AF [place]AST [place] >60 Normal >=60 [place] Comment on above: Performed By: #### B HELMET HAT SWEATBAND PUNCHER, BMP ####[facility] [address]zcjwtd[address] [place] [id number]. Garima Pulliam EGFR-NON AF [place] >60 Normal >=60 [facility] Comment on above: Performed By: #### B HELMET HAT SWEATBAND PUNCHER, BMP ####[facility] [address] [place] [address]Dr. Garima Pulliam Glucose [Mass/Vol] 315 mg/dL Critically high 74-106 [facility] Comment on above: Performed By: #### B HELMET HAT SWEATBAND PUNCHER, BMP ####[facility] [address]be[address]rx[address] [place] [address]Dr. Garima Pulliam Potassium [Moles/Vol] 3.6 mmol/L Normal 3.5-5.1 [facility] Comment on above: Performed By: #### B HELMET HAT SWEATBAND PUNCHER, BMP ####[facility] [address] [place] [address]Dr. Garima Pulliam Sodium [Moles/Vol] 135 mmol/L Critically low 136-145 [facility] Comment on above: Performed By: #### B HELMET HAT SWEATBAND PUNCHER, BMP ####[facility] [address]zebr[address] [place] [address]Dr. Garima Pulliam Urea nitrogen [Mass/Vol] 7.0 mg/dL Normal 7.0-18.0 [facility] Comment on above: Performed By: #### B HELMET HAT SWEATBAND PUNCHER, BMP ####[facility] [address]svonc[address] [place] [address]Dr. Garima Pulliam Urea nitrogen/Creatinine [Mass ratio] 7.7 mg/mg Normal [facility] Comment on above: Performed By: #### B HELMET HAT SWEATBAND PUNCHER, BMP ####[facility] [address] [place] [address]Dr. Garima Pulliam SED RATE WESTERGRENon 2022 SED RATE 8 mm/hr Normal <=20 [facility] Comment on above: Performed By: #### S EDR ####[facility] Mxpwkpoit[address] [place], [place] [address]Dr. Garima Pulliam BNPon 03-16-2023 Natriuretic peptide B (Bld) [Mass/Vol] 241.0 pg/mL Normal <=900.0 The [facility] Comment on above: Performed By: #### B HELMET HAT SWEATBAND PUNCHER, BMP, HSTROPN ####[facility] Jymmhxog[address] [place], [place] [address]Dr. Garima Heraclio CBC AUTO DIFFon 03-16-2023 BASO # 0.0 103/ul Normal 0.0-0.1 [facility] Comment on above: Performed By: #### C BC ####[facility] E[address]jxtkzqs[address] [place], [place] [address]Dr. Chapisrenu Pulliam Basophils/100 WBC (Bld) 0.2 % Normal 0.2-2.0 [facility] Comment on above: Performed By: #### C BC ####[facility] Odwe[address] [place], [place] [address]Dr. Garima Pulliam EO # 0.2 103/ul Normal 0.0-0.7 [facility] Comment on above: Performed By: #### C BC ####[facility] Kh[address]umsom[address] [place], [place] [address]Dr. Chapisrenu Pulliam Eosinophils/100 WBC (Bld) 2.7 % Normal 0.9-7.0 [facility] Comment on above: Performed By: #### C BC ####[facility] Qyncqfadhz[address] [place], [place] [address]Dr. Garima Pulliam Erythrocyte distribution width (RBC) [Ratio] 13.1 % Normal 11.0-15.0 [facility] Comment on above: Performed By: #### C BC ####[facility] Otd[address] [place], [place] [address]Dr. Garima Pulliam Hematocrit (Bld) [Volume fraction] 41.8 % Critically low 42.0-54.0 [facility] Comment on above: Performed By: #### C BC ####[facility] [address]sult[address] [place] [address]Dr. Garima Pulliam Hemoglobin (Bld) [Mass/Vol] 14.0 g/dL Normal 14.0-18.0 [facility] Comment on above: Performed By: #### C BC ####[facility] L[address]xwtx[address] [place] [address]Dr. Garima Pulliam IG # 0.03 10e3/ul Normal 0.00-0.03 [facility] Comment on above: Performed By: #### C BC ####[facility] Itrupcuwxh[address] [place] [address]Dr. Garima Pulliam IG % 0.3 % Normal 0.0-0.5 [facility] Comment on above: Performed By: #### C BC ####[facility] X[address]qx[address] [place], [place] [address]Dr. Chapisrenu Pulliam LYMPH # 2.1 103/ul Normal 1.2-3.8 [facility] Comment on above: Performed By: #### C BC ####[facility] [address]cl[address] [place], [place] [address]Dr. Chapisrenu Pulliam Lymphocytes/100 WBC (Bld) 24.2 % Normal 20.5-60.0 [facility] Comment on above: Performed By: #### C BC ####[facility] [address] [place] [address]Dr. Garima Pulliam MANUAL DIFF REQ NO Normal [facility] Comment on above: Performed By: #### C BC ####[facility] Buuuapwinx[address] [place] [address]Dr. Garima Pulliam MCH (RBC) [Entitic mass] 30.2 pg Normal 25.9-34.0 [facility] Comment on above: Performed By: #### C BC ####[facility] Elvuojufus[address] [place] [address]Dr. Garima Pulliam MCHC (RBC) [Mass/Vol] 33.5 g/dL Normal 29.9-35.2 [facility] Comment on above: Performed By: #### C BC ####[facility] [address]su[address] [place] [id number]. Garima Pulliam MCV (RBC) [Entitic vol] 90.1 fL Normal 80.0-94.0 [facility] Comment on above: Performed By: #### C BC ####[facility] Hctxiaxwjn32[address] [place] [id number]. Garima Pulliam MONO # 0.6 103/ul Normal 0.3-0.8 [facility] Comment on above: Performed By: #### C BC ####[facility] Zqdgiycyhm6[address] [place] [address]Dr. Garima Heraclio Monocytes/100 WBC (Bld) 7.4 % Normal 1.7-12.0 [facility] Comment on above: Performed By: #### C BC ####[facility] Z[address] [place], [place] [address]Dr. Garima Pulliam NEUT # 5.6 103/ul Normal 1.4-6.5 [facility] Comment on above: Performed By: #### C BC ####[facility] Gxx[address] [place], [place] [address]Dr. Garima Heraclio Neutrophils/100 WBC (Bld) 65.2 % Normal 43.0-75.0 [facility] Comment on above: Performed By: #### C BC ####[facility] Jg[address]xjuvqpt[address] [place] [id number]. Garima Heraclio Platelet mean volume (Bld) [Entitic vol] 8.7 fL Critically low 9.5-13.5 [facility] Comment on above: Performed By: #### C BC ####[facility] [address] [place], [place] [id number]. Garima Heraclio PLT 195 103/ul Normal 150-450 [facility] Comment on above: Performed By: #### C BC ####[facility] Hxbycmdmrc44[address] [place] [id number]. Garima Pulliam RBC 4.64 106/ul Critically low 4.70-6.10 [facility] Comment on above: Performed By: #### C BC ####[facility] Tysornoyph[address] [place] [address]Dr. Garima Pulliam WBC 8.6 103/ul Normal 4.0-11.0 [facility] Comment on above: Performed By: #### C BC ####[facility] Hwrvohoioh40[address] [place] [address]Dr. Garima Pulliam PROF CHEM 8 (BAS METB)on Anion gap [Moles/Vol] 6.7 mmol/L Normal [facility] Comment on above: Performed By: #### B HELMET HAT SWEATBAND PUNCHER, BMP, HSTROPN ####[facility] [address]uf[address] [place] [address]Dr. Garima Pulliam Calcium [Mass/Vol] 8.8 mg/dL Normal 8.5-10.1 [facility] Comment on above: Performed By: #### B HELMET HAT SWEATBAND PUNCHER, BMP, HSTROPN ####[facility] [address] [place], [place] [address]Dr. Garima Pulliam Chloride [Moles/Vol] 106 mmol/L Normal 98-107 [facility] Comment on above: Performed By: #### B HELMET HAT SWEATBAND PUNCHER, BMP, HSTROPN ####[facility] [address] [place], [place] [address]Dr. Garima Pulliam CO2 [Moles/Vol] 31.4 mmol/L Normal 21.0-32.0 [facility] Comment on above: Performed By: #### B HELMET HAT SWEATBAND PUNCHER, BMP, HSTROPN ####[facility] [address] [place], [place] [address]Dr. Garima Pulliam Creatinine [Mass/Vol] 0.75 mg/dL Normal 0.70-1.30 [facility] Comment on above: Performed By: #### B HELMET HAT SWEATBAND PUNCHER, BMP, HSTROPN ####[facility] [address]iolec[address] [place] [address]Dr. Garima Pulliam EGFR-AF [place] >60 Normal >=60 [facility] Comment on above: Performed By: #### B HELMET HAT SWEATBAND PUNCHER, BMP, HSTROPN ####[facility] [address]vol[address] [place] [address]Dr. Garima Pulliam EGFR-NON AF [place] >60 Normal >=60 [facility] Comment on above: Performed By: #### B HELMET HAT SWEATBAND PUNCHER, BMP, HSTROPN ####[facility] [address]fofd[address] [place] [address]Dr. Garima Pulliam Glucose [Mass/Vol] 161 mg/dL Critically high 74-106 [facility] Comment on above: Performed By: #### B HELMET HAT SWEATBAND PUNCHER, BMP, HSTROPN ####[facility] [address]is[address] [place] [address]Dr. Garima Pulliam Potassium [Moles/Vol] 4.1 mmol/L Normal 3.5-5.1 [facility] Comment on above: Performed By: #### B HELMET HAT SWEATBAND PUNCHER, BMP, HSTROPN ####[facility] [address]oyy[address]vl[address] [place] [address]Dr. Garima Pulliam Sodium [Moles/Vol] 140 mmol/L Normal 136-145 [facility] Comment on above: Performed By: #### B HELMET HAT SWEATBAND PUNCHER, BMP, HSTROPN ####[facility] [address]mdj[address] [place] [address]Dr. Garima Pulliam Urea nitrogen [Mass/Vol] 7.0 mg/dL Normal 7.0-18.0 [facility] Comment on above: Performed By: #### B HELMET HAT SWEATBAND PUNCHER, BMP, HSTROPN ####[facility] Pmpwpaecnl[address] [place] [address]Dr. Garima Pulliam Urea nitrogen/Creatinine [Mass ratio] 9.3 mg/mg Normal [facility] Comment on above: Performed By: #### B HELMET HAT SWEATBAND PUNCHER, BMP, HSTROPN ####[facility] [address] [place] [address]Dr. Garima Pulliam TROPONIN, HIGH SENSITIVITYon 03-16-2023 HSTROP 9.7 pg/mL Normal 4.0-76.1 [facility] Comment on above: Result Comment: CUT- OFF POINTS HAVE BEEN ESTABLISHED BASED ON THE FOURTH UNIVERSAL DEFINITIONS OF MYOCARDIALINFARCTION. THE UPPER REFERENCE LIMIT (URL) OF TROPONIN, DEFINED THE 99TH PERCENTILE OFcTnI DISTRIBUTION IN A REFERENCE POPULATION, HAS BEEN CONFIRMED THE DECISION THRESHOLDFOR OH DIAGNOSIS. Performed By: #### B HELMET HAT SWEATBAND PUNCHER, BMP, HSTROPN ####[facility] [address] [place] [address]Dr. Garima Pulliam XR CHEST 1 Von 03-16-2023 XR CHEST 1 V Normal [facility] BNPon 03-06-2023 Natriuretic peptide B (Bld) [Mass/Vol] 111.0 pg/mL Normal <=900.0 [facility] Comment on above: Performed By: #### C MP, BNP, CK ####[facility] [address]zls[address] [place] [address]Dr. Chapisrenu Pulliam CBC AUTO DIFFon 03-06-2023 BASO # 0.0 103/ul Normal 0.0-0.1 [facility] Comment on above: Performed By: #### C BC ####[facility] Ex[address]rs[address] [place], [place] [address]Dr. Garima Pulliam Basophils/100 WBC (Bld) 0.2 % Normal 0.2-2.0 [facility] Comment on above: Performed By: #### C BC ####[facility] [address] [place], [place] [address]Dr. Garima Pulliam EO # 0.3 103/ul Normal 0.0-0.7 [facility] Comment on above: Performed By: #### C BC ####[facility] [address] [place], [place] [address]Dr. Garima Pulliam Eosinophils/100 WBC (Bld) 3.5 % Normal 0.9-7.0 [facility] Comment on above: Performed By: #### C BC ####[facility] Jqlulhxgsy[address] [place], [place] [address]Dr. Garima Pulliam Erythrocyte distribution width (RBC) [Ratio] 13.3 % Normal 11.0-15.0 [facility] Comment on above: Performed By: #### C BC ####[facility] [address]kvzsip[address] [place], [place] [address]Dr. Garima Pulliam Hematocrit (Bld) [Volume fraction] 43.7 % Normal 42.0-54.0 [facility] Comment on above: Performed By: #### C BC ####[facility] Pacrtnxlos[address] [place] [address]Dr. Garima Pulliam Hemoglobin (Bld) [Mass/Vol] 14.7 g/dL Normal 14.0-18.0 [facility] Comment on above: Performed By: #### C BC ####[facility] Hxtylcrnfm4[address] [place] [address]Dr. Chapisrenu Heraclio IG # 0.03 10e3/ul Normal 0.00-0.03 [facility] Comment on above: Performed By: #### C BC ####[facility] [address] [place], [place] [address]Dr. Garima Pulliam IG % 0.4 % Normal 0.0-0.5 [facility] Comment on above: Performed By: #### C BC ####[facility] Ztpdo[address]rjo[address] [place], [place] [address]Dr. Garima Pulliam LYMPH # 2.0 103/ul Normal 1.2-3.8 [facility] Comment on above: Performed By: #### C BC ####[facility] Eb[address]xjyw[address] [place], [place] [address]DrAdalberto Pulliam Lymphocytes/100 WBC (Bld) 23.7 % Normal 20.5-60.0 [facility] Comment on above: Performed By: #### C BC ####[facility] [address]nsv[address] [place] [address]Dr. Garima Pulliam MANUAL DIFF REQ NO Normal [facility] Comment on above: Performed By: #### C BC ####[facility] Xkxlxxhurn8464 [place] [id number] Pulliam MCH (RBC) [Entitic mass] 30.1 pg Normal 25.9-34.0 [facility] Comment on above: Performed By: #### C BC ####[facility] Kajikvther4[address] [place] [id number]. Garima Pulliam MCHC (RBC) [Mass/Vol] 33.6 g/dL Normal 29.9-35.2 [facility] Comment on above: Performed By: #### C BC ####[facility] Nrkaflrdiw[address] [place] [address]Dr. Garima Heraclio MCV (RBC) [Entitic vol] 89.4 fL Normal 80.0-94.0 [facility] Comment on above: Performed By: #### C BC ####[facility] G[address]roqpxyk[address] [place] [address]Dr. Garima Pulliam MONO # 0.8 103/ul Normal 0.3-0.8 The [facility] Comment on above: Performed By: #### C BC ####[facility] [address]jnwtnat[address] [place] [address]Dr. Garima Pulliam Monocytes/100 WBC (Bld) 9.0 % Normal 1.7-12.0 [facility] Comment on above: Performed By: #### C BC ####[facility] Yxfu[address]frm[address] [place], [place] [address]Dr. Garima Pulliam NEUT # 5.4 103/ul Normal 1.4-6.5 [facility] Comment on above: Performed By: #### C BC ####[facility] [address]jvaiznwvp[address] [place], [place] [address]Dr. Garima Pulliam Neutrophils/100 WBC (Bld) 63.2 % Normal 43.0-75.0 [facility] Comment on above: Performed By: #### C BC ####[facility] K[address]ql[address] [place], [place] [address]Dr. Garima Pulliam Platelet mean volume (Bld) [Entitic vol] 9.0 fL Critically low 9.5-13.5 [facility] Comment on above: Performed By: #### C BC ####[facility] [address] [place], [place] [address]Dr. Garima Pulliam PLT 218 103/ul Normal 150-450 [facility] Comment on above: Performed By: #### C BC ####[facility] Pdfvbsbuyx70[address] [place] [id number]. Garima Pulliam RBC 4.89 106/ul Normal 4.70-6.10 [facility] Comment on above: Performed By: #### C BC ####[facility] Rutmnsqchz[address] [place] [address]Dr. Garima Pulliam WBC 8.5 103/ul Normal 4.0-11.0 [facility] Comment on above: Performed By: #### C BC ####[facility] [address]uwvx[address]we[address] [place] [address]Dr. Garima Pulliam CPKon 03-06-2023 CK [Catalytic activity/Vol] 191 U/L Normal 39-308 [facility] Comment on above: Performed By: #### C MP, BNP, CK ####[facility] Dnxithxfmm35[address] [place] [address]Dr. Garima Pulliam PROF 14(COMP METB)on 023 Albumin [Mass/Vol] 3.6 g/dL Normal 3.4-5.0 [facility] Comment on above: Performed By: #### C MP, BNP, CK ####[facility] Aflhextxyl[address] [place] [address]Dr. Garima Pulliam Albumin/Globulin [Mass ratio] 1.2 {ratio} Normal [facility] Comment on above: Performed By: #### C MP, BNP, CK ####[facility] Qqyfpecipa44[address] [place] [address]Dr. Garima Pulliam ALP [Catalytic activity/Vol] 91 U/L Normal 46-116 [facility] Comment on above: Performed By: #### C MP, BNP, CK ####[facility] Wpbqxretow36[address] [place] [address]Dr. Garima Pulliam ALT [Catalytic activity/Vol] 33 U/L Normal 16-63 [facility] Comment on above: Performed By: #### C MP, BNP, CK ####[facility] Vfzrqanwjc16[address] [place] [address]Dr. Garima Pulliam Anion gap [Moles/Vol] 10.3 mmol/L Normal [facility] Comment on above: Performed By: #### C MP, BNP, CK ####[facility] Qpfuhfmctk4[address] [place] [address]Dr. Garima Pulliam AST [Catalytic activity/Vol] 17 U/L Normal 15-37 [facility] Comment on above: Performed By: #### C MP, BNP, CK ####[facility] Gmcjxknakr44[address] [place] [address]Dr. Garima Pulliam Bilirubin [Mass/Vol] 0.4 mg/dL Normal 0.2-1.0 [facility] Comment on above: Performed By: #### C MP, BNP, CK ####[facility] Prvalkkeea[address] [place] [address]Dr. Garima Pulliam Calcium [Mass/Vol] 9.1 mg/dL Normal 8.5-10.1 [facility] Comment on above: Performed By: #### C MP, BNP, CK ####[facility] Cwueftkrlr7[address] [place] [address]Dr. Garima Pulliam Chloride [Moles/Vol] 102 mmol/L Normal 98-107 [facility] Comment on above: Performed By: #### C MP, BNP, CK ####[facility] Qxzbtaqjwn56[address] [place] [address]Dr. Garima Pulliam CO2 [Moles/Vol] 29.7 mmol/L Normal 21.0-32.0 [facility] Comment on above: Performed By: #### C MP, BNP, CK ####[facility] [address]ovquczcg20[address] [place] [address]Dr. Garima Pulliam Creatinine [Mass/Vol] 0.79 mg/dL Normal 0.70-1.30 [facility] Comment on above: Performed By: #### C MP, BNP, CK ####[facility] [address]oknkhsqew[address] [place] [address]Dr. Garima Pulliam EGFR-AF [place] >60 Normal >=60 [facility] Comment on above: Performed By: #### C MP, BNP, CK ####[facility] [address]wlhmuesj[address] [place] [address]Dr. Garima Pulliam EGFR-NON AF [place] >60 Normal >=60 [facility] Comment on above: Performed By: #### C MP, BNP, CK ####[facility] Jcmhvldqfp[address] [place] [address]Dr. Garima Pulliam Globulin (S) [Mass/Vol] 3.0 g/dL Normal [facility] Comment on above: Performed By: #### C MP, BNP, CK ####[facility] Cwkufyaruw6[address] [place] [address]Dr. Garima Pulliam Glucose [Mass/Vol] 202 mg/dL Critically high 74-106 [facility] Comment on above: Performed By: #### C MP, BNP, CK ####[facility] [address]okyjwotu75[address] [place] [address]Dr. Garima Pulliam Potassium [Moles/Vol] 4.0 mmol/L Normal 3.5-5.1 [facility] Comment on above: Performed By: #### C MP, BNP, CK ####[facility] Nyjiurwpdb0532 [place] [address]Dr. Garima Pulliam Protein [Mass/Vol] 6.6 g/dL Normal 6.4-8.2 [facility] Comment on above: Performed By: #### C MP, BNP, CK ####[facility] [address] [place], [place] [address]Dr. Garima Pulliam Sodium [Moles/Vol] 138 mmol/L Normal 136-145 [facility] Comment on above: Performed By: #### C MP, BNP, CK ####[facility] Friwdqjtjd[address] [place], [place] [address]Dr. Garima Pulliam Urea nitrogen [Mass/Vol] 10.0 mg/dL Normal 7.0-18.0 [facility] Comment on above: Performed By: #### C MP, BNP, CK ####[facility] Vgxzrecuzv[address] [place] [address]Dr. Garima Pulliam Urea nitrogen/Creatinine [Mass ratio] 12.7 mg/mg Normal [facility] Comment on above: Performed By: #### C MP, BNP, CK ####[facility] Jioqhsewue[address] [place] [address]Dr. Garima Pulliam US VERONICA DOP LEG BILon 023 US VERONICA DOP LEG BENOIT Normal [facility] CBC AUTO DIFFon 01-13-2023 BASO # 0.0 103/ul Normal 0.0-0.1 [facility] Comment on above: Performed By: #### C BC ####[facility] Vstgrwaykl1897 [place] [id number]. Chapisrenu Pulliam Basophils/100 WBC (Bld) 0.0 % Critically low 0.2-2.0 [facility] Comment on above: Performed By: #### C BC ####[facility] E[address]rudsjle[address] [place] [address]Dr. Garima Pulliam EO # 0.0 103/ul Normal 0.0-0.7 [facility] Comment on above: Performed By: #### C BC ####[facility] Cydisiyibr[address] [place], [place] [address]Dr. Garima Pulliam Eosinophils/100 WBC (Bld) 0.0 % Critically low 0.9-7.0 [facility] Comment on above: Performed By: #### C BC ####[facility] Bkxnrtgpls[address] [place] [address]Dr. Garima Pulliam Erythrocyte distribution width (RBC) [Ratio] 13.2 % Normal 11.0-15.0 [facility] Comment on above: Performed By: #### C BC ####[facility] [address] [place], [place] [address]Dr. Garima Pulliam Hematocrit (Bld) [Volume fraction] 46.7 % Normal 42.0-54.0 [facility] Comment on above: Performed By: #### C BC ####[facility] Lhszagdion[address] [place], [place] [address]Dr. Garima Pulliam Hemoglobin (Bld) [Mass/Vol] 15.6 g/dL Normal 14.0-18.0 The [facility] Comment on above: Performed By: #### C BC ####[facility] Buupyazeb[address] [place], [place] [address]Dr. Garima Pulliam IG # 0.01 10e3/ul Normal 0.00-0.03 The [facility] Comment on above: Performed By: #### C BC ####[facility] Canhciupoq[address] [place] [id number]. Garima Pulliam IG % 0.2 % Normal 0.0-0.5 [facility] Comment on above: Performed By: #### C BC ####[facility] Ndmiszevcq0[address] [place] [id number]. Garima Pulliam LYMPH # 0.8 103/ul Critically low 1.2-3.8 [facility] Comment on above: Performed By: #### C BC ####[facility] Vsmvucpuoj7[address] [place] [id number]. Garima Pulliam Lymphocytes/100 WBC (Bld) 12.7 % Critically low 20.5-60.0 [facility] Comment on above: Performed By: #### C BC ####[facility] Eonhyqwles[address] [place] [address]Dr. Garima Pulliam MANUAL DIFF REQ NO Normal [facility] Comment on above: Performed By: #### C BC ####[facility] Ezmpdncgeb0231 [place] [id number]. Garima Pulliam MCH (RBC) [Entitic mass] 30.2 pg Normal 25.9-34.0 [facility] Comment on above: Performed By: #### C BC ####[facility] Hhrdwexfba8794 [place] [id number]. Garima Pulliam MCHC (RBC) [Mass/Vol] 33.4 g/dL Normal 29.9-35.2 The [facility] Comment on above: Performed By: #### C BC ####[facility] Hqrrxdosyv2246 [place] [id number]. Garima Pulliam MCV (RBC) [Entitic vol] 90.3 fL Normal 80.0-94.0 The [facility] Comment on above: Performed By: #### C BC ####[facility] Svyfqrruwi2757 [place] [id number]. Garima Heraclio MONO # 0.1 103/ul Critically low 0.3-0.8 The [facility] Comment on above: Performed By: #### C BC ####[facility] Jrhdvydtvt2393 [place] [id number]. Garima Pulliam Monocytes/100 WBC (Bld) 0.9 % Critically low 1.7-12.0 [facility] Comment on above: Performed By: #### C BC ####[facility] Sgidhiavwl5258 [place] [id number]. Garima Pulliam NEUT # 5.6 103/ul Normal 1.4-6.5 The [facility] Comment on above: Performed By: #### C BC ####[facility] Mymcvutpyq0723 [place] [id number]. Garima Pulliam Neutrophils/100 WBC (Bld) 86.2 % Critically high 43.0-75.0 [facility] Comment on above: Performed By: #### C BC ####[facility] Xhfxeteqlm7140 [place] [address]Dr. Garima Pulliam Platelet mean volume (Bld) [Entitic vol] 9.1 fL Critically low 9.5-13.5 [facility] Comment on above: Performed By: #### C BC ####[facility] Ywenc[address] [place], [place] [address]Dr. Garima Pulliam PLT 169 103/ul Normal 150-450 The [facility] Comment on above: Performed By: #### C BC ####[facility] Drnngjcmwm25[address] [place], [place] [address]Dr. Garima Pulliam RBC 5.17 106/ul Normal 4.70-6.10 The [facility] Comment on above: Performed By: #### C BC ####[facility] Jqsmmvob[address] [place], [place] [id number]. Garima Pulliam WBC 6.5 103/ul Normal 4.0-11.0 The [facility] Comment on above: Performed By: #### C BC ####[facility] Ksopxongsa[address] [place], [place] [address]Dr. Garima Pulliam D-DIMERon 01-13-2023 D-DIMER 0.41 mg/L FEU Normal <=0.59 [facility] Comment on above: Performed By: #### D DIM ####[facility] Dyxvdhipdy[address] [place] [address]Dr. Garima Pulliam D-DIMER COMMENTS SEE BELOW Normal [place] Comment on above: Result Comment: Incr eases [...] Performed By: #### D DIM ####[facility] Zmeaggzavo[address] [place], [place] [address]Dr. Garima Pulliam PROF 14(COMP METB)on 023 Albumin [Mass/Vol] 3.4 g/dL Normal 3.4-5.0 [facility] Comment on above: Performed By: #### C MP ####[facility] Qninyvwcnw[address] [place], [place] [address]Dr. Garima Pulliam Albumin/Globulin [Mass ratio] 1.3 {ratio} Normal [facility] Comment on above: Performed By: #### C MP ####[facility] Ribrrbovrk[address] [place], [place] [address]Dr. Garima Pullima ALP [Catalytic activity/Vol] 83 U/L Normal 46-116 [facility] Comment on above: Performed By: #### C MP ####[facility] Addxhxvzyq[address] [place], [place] [address]Dr. Garima Pulliam ALT [Catalytic activity/Vol] 25 U/L Normal 16-63 [facility] Comment on above: Performed By: #### C MP ####[facility] Ojejuivlbz[address] [place] [address]Dr. Garima Pulliam Anion gap [Moles/Vol] 14.5 mmol/L Normal [facility] Comment on above: Performed By: #### C MP ####[facility] Fvczlxwrgv[address] [place], [place] [address]Dr. Graima Pulliam AST [Catalytic activity/Vol] 19 U/L Normal 15-37 [facility] Comment on above: Performed By: #### C MP ####[facility] Qtonobzgjj[address] [place], [place] [address]Dr. Garima Pulliam Bilirubin [Mass/Vol] 0.4 mg/dL Normal 0.2-1.0 [facility] Comment on above: Performed By: #### C MP ####[facility] Ibqnjcnrlk[address] [place], [place] [address]Dr. Garima Pulliam Calcium [Mass/Vol] 8.7 mg/dL Normal 8.5-10.1 [facility] Comment on above: Performed By: #### C MP ####[facility] Vudlvlinpt[address] [place], [place] [address]Dr. Garima Pulliam Chloride [Moles/Vol] 104 mmol/L Normal 98-107 [facility] Comment on above: Performed By: #### C MP ####[facility] Qhbskemybj[address] [place], [place] [address]Dr. Garima Pulliam CO2 [Moles/Vol] 24.5 mmol/L Normal 21.0-32.0 The [facility] Comment on above: Performed By: #### C MP ####[facility] Xulxepyqqu[address] [place], [place] [address]Dr. Garima Pulliam Creatinine [Mass/Vol] 0.70 mg/dL Normal 0.70-1.30 [facility] Comment on above: Performed By: #### C MP ####[facility] Bvkqyrerpw[address] [place], [place] [address]Dr. Garima Heraclio EGFR-AF [place] >60 Normal >=60 The [facility] Comment on above: Performed By: #### C MP ####[facility] Fcozyvfcfi[address] [place], [place] [address]Dr. Chapisrenu Heraclio EGFR-NON AF [place] >60 Normal >=60 [facility] Comment on above: Performed By: #### C MP ####[facility] Irmwjmjesn[address] [place], [place] [address]Dr. Chapisrenu Pulliam Globulin (S) [Mass/Vol] 2.6 g/dL Normal [facility] Comment on above: Performed By: #### C MP ####[facility] Emqpiiphfk9[address] [place] [address]Dr. Garima Pulliam Glucose [Mass/Vol] 196 mg/dL Critically high 74-106 [facility] Comment on above: Performed By: #### C MP ####[facility] Xssjdqbgjf13[address] [place] [address]Dr. Garima Pulliam Potassium [Moles/Vol] 4.0 mmol/L Normal 3.5-5.1 [facility] Comment on above: Performed By: #### C MP ####[facility] Cnidxnrnrm3[address] [place] [address]Dr. Garima Pulliam Protein [Mass/Vol] 6.0 g/dL Critically low 6.4-8.2 [facility] Comment on above: Performed By: #### C MP ####[facility] Oqahovksql[address] [place], [place] [address]Dr. Garima Pulliam Sodium [Moles/Vol] 139 mmol/L Normal 136-145 [facility] Comment on above: Performed By: #### C MP ####[facility] Pvcmroufwc[address] [place], [place] [address]Dr. Garima Pulliam Urea nitrogen [Mass/Vol] 7.0 mg/dL Normal 7.0-18.0 [facility] Comment on above: Performed By: #### C MP ####[facility] Lcwnnhtzyj[address] [place], [place] [address]Dr. Garima Heraclio Urea nitrogen/Creatinine [Mass ratio] 10.0 mg/mg Normal [facility] Comment on above: Performed By: #### C MP ####[facility] Wjkktftsls[address] [place], [place] [address]Dr. Garima Heraclio BNPon 01-12-2023 Natriuretic peptide B (Bld) [Mass/Vol] 141.0 pg/mL Normal <=900.0 [facility] Comment on above: Performed By: #### C MP, BNP, HSTROPN ####[facility] Qvjwosttha[address] [place], [place] [address]Dr. Garima Heraclio CBC AUTO DIFFon 01-12-2023 BASO # 0.0 103/ul Normal 0.0-0.1 The [facility] Comment on above: Performed By: #### C BC ####[facility] Rehsiovsyl[address] [place] [id number]. Garima Heraclio Basophils/100 WBC (Bld) 0.2 % Normal 0.2-2.0 The [facility] Comment on above: Performed By: #### C BC ####[facility] Xwgshyqgre[address] [place] [address]Dr. Garima Heraclio EO # 0.2 103/ul Normal 0.0-0.7 The [facility] Comment on above: Performed By: #### C BC ####[facility] Ewaluueusv[address] [place] [address]Dr. Garima Heraclio Eosinophils/100 WBC (Bld) 2.7 % Normal 0.9-7.0 The [facility] Comment on above: Performed By: #### C BC ####[facility] Ypqbtpbrce[address] [place], [place] [address]Dr. Garima Pulliam Erythrocyte distribution width (RBC) [Ratio] 13.3 % Normal 11.0-15.0 The [facility] Comment on above: Performed By: #### C BC ####[facility] Eteofojkft[address] [place], [place] [address]Dr. Garima Pulliam Hematocrit (Bld) [Volume fraction] 42.3 % Normal 42.0-54.0 The [facility] Comment on above: Performed By: #### C BC ####[facility] Ldtnxxcpks[address] [place], [place] [address]Dr. Garima Pulliam Hemoglobin (Bld) [Mass/Vol] 14.3 g/dL Normal 14.0-18.0 The [facility] Comment on above: Performed By: #### C BC ####[facility] Avgpqnrizb[address] [place], [place] [address]Dr. Garima Pulliam IG # 0.02 10e3/ul Normal 0.00-0.03 The [facility] Comment on above: Performed By: #### C BC ####[facility] Uhdzsbthyk[address] [place] [id number]. Garima Pulliam IG % 0.2 % Normal 0.0-0.5 The [facility] Comment on above: Performed By: #### C BC ####[facility] Bvzoqhwllk[address] [place] [id number]. Garima Pulliam LYMPH # 2.6 103/ul Normal 1.2-3.8 The [facility] Comment on above: Performed By: #### C BC ####[facility] Boajsamsww[address]68 [place] [id number]. Garima Heraclio Lymphocytes/100 WBC (Bld) 29.6 % Normal 20.5-60.0 The [facility] Comment on above: Performed By: #### C BC ####[facility] E[address]gshzdrc[address] [place] [address]Dr. Garima Heraclio MANUAL DIFF REQ NO Normal [facility] Comment on above: Performed By: #### C BC ####[facility] Rhaqegsanf[address]62 [place] [id number]. Garima Pulliam MCH (RBC) [Entitic mass] 30.2 pg Normal 25.9-34.0 The [facility] Comment on above: Performed By: #### C BC ####[facility] Gcmmazavhe[address] [place] [address]Dr. Garima Pulliam MCHC (RBC) [Mass/Vol] 33.8 g/dL Normal 29.9-35.2 The [facility] Comment on above: Performed By: #### C BC ####[facility] Brhoejacby07[address] [place] [id number]. Garima Pulliam MCV (RBC) [Entitic vol] 89.2 fL Normal 80.0-94.0 The [facility] Comment on above: Performed By: #### C BC ####[facility] Dxnhcjydon[address] [place], [place] [address]Dr. Chapisrenu Pulliam MONO # 0.7 103/ul Normal 0.3-0.8 The [facility] Comment on above: Performed By: #### C BC ####[facility] Splkzqlywv3678 [place] [id number]. Garima Pulliam Monocytes/100 WBC (Bld) 8.3 % Normal 1.7-12.0 The [facility] Comment on above: Performed By: #### C BC ####[facility] Jesjlgwuti9272 [place] [id number]. Garima Pulliam NEUT # 5.1 103/ul Normal 1.4-6.5 The [facility] Comment on above: Performed By: #### C BC ####[facility] Bnquzumbxu2479 [place] [address]Dr. Garima Pulliam Neutrophils/100 WBC (Bld) 59.0 % Normal 43.0-75.0 The [facility] Comment on above: Performed By: #### C BC ####[facility] Izszunejbh8[address] [place] [address]Dr. Garima Pulliam Platelet mean volume (Bld) [Entitic vol] 8.7 fL Critically low 9.5-13.5 The [facility] Comment on above: Performed By: #### C BC ####[facility] Xucrpbvvjt8[address] [place] [address]Dr. Garima Pulliam PLT 182 103/ul Normal 150-450 The [facility] Comment on above: Performed By: #### C BC ####[facility] Leqtuctmrd6384 [place] [id number]. Garima Pulliam RBC 4.74 106/ul Normal 4.70-6.10 The [facility] Comment on above: Performed By: #### C BC ####[facility] Lrvxnsqxy[address] [place], [place] [address]Dr. Garima Pulliam WBC 8.7 103/ul Normal 4.0-11.0 The [facility] Comment on above: Performed By: #### C BC ####[facility] Qmfwqjgjpi[address] [place], [place] [address]Dr. Garima Pulliam Covid-19 PCR (CVDTB)on 12-25 SARS-CoV-2 (COVID-19) RNA MARIE+probe Ql (Unsp spec) Not detected Normal NOT DETECTED The [facility] [...] for this test is supported by the [place] of Health and Human Service's declaration that [...] Performed By: #### C VDTBH ####[facility] Dplerqdeuc[address] [place] [address]Dr. Garima Pulliam PROF 14(COMP METB)on 023 Albumin [Mass/Vol] 3.6 g/dL Normal 3.4-5.0 [facility] Comment on above: Performed By: #### C MP, BNP, HSTROPN ####[facility] Gehqxwwmlr[address] [place] [address]Dr. Garima Pulliam Albumin/Globulin [Mass ratio] 1.5 {ratio} Normal [facility] Comment on above: Performed By: #### C MP, BNP, HSTROPN ####[facility] Xkajzxjekm0[address] [place] [address]Dr. Garima Pulliam ALP [Catalytic activity/Vol] 79 U/L Normal 46-116 The [facility] Comment on above: Performed By: #### C MP, BNP, HSTROPN ####[facility] Wfcpaqxlwt[address]12 [place] [address]Dr. Garima Pulliam ALT [Catalytic activity/Vol] 27 U/L Normal 16-63 [facility] Comment on above: Performed By: #### C MP, BNP, HSTROPN ####[facility] Xeagizyxol[address] [place] [address]Dr. Garima Pulliam Anion gap [Moles/Vol] 11.7 mmol/L Normal [facility] Comment on above: Performed By: #### C MP, BNP, HSTROPN ####[facility] Exgkepqfym7[address] [place] [address]Dr. Garima Pulliam AST [Catalytic activity/Vol] 21 U/L Normal 15-37 [facility] Comment on above: Performed By: #### C MP, BNP, HSTROPN ####[facility] Igdybqdohs25[address] [place] [address]Dr. Garima Pulliam Bilirubin [Mass/Vol] 0.3 mg/dL Normal 0.2-1.0 [facility] Comment on above: Performed By: #### C MP, BNP, HSTROPN ####[facility] Aorrzxdhwm17[address] [place] [address]Dr. Garima Pulliam Calcium [Mass/Vol] 8.9 mg/dL Normal 8.5-10.1 [facility] Comment on above: Performed By: #### C MP, BNP, HSTROPN ####[facility] Buniutnwtr[address] [place] [address]Dr. Garima Pulliam Chloride [Moles/Vol] 107 mmol/L Normal 98-107 [facility] Comment on above: Performed By: #### C MP, BNP, HSTROPN ####[facility] Iezajayjds[address] [place] [address]Dr. Garima Pulliam CO2 [Moles/Vol] 26.0 mmol/L Normal 21.0-32.0 The [facility] Comment on above: Performed By: #### C MP, BNP, HSTROPN ####[facility] Zgpxurbhck[address] [place] [address]Dr. Garima Pulliam Creatinine [Mass/Vol] 0.65 mg/dL Critically low 0.70-1.30 [facility] Comment on above: Performed By: #### C MP, BNP, HSTROPN ####[facility] Veitsyzhgv[address] [place] [address]Dr. Yilan Pulliam EGFR-AF [place] >60 Normal >=60 [place] Comment on above: Performed By: #### C MP, BNP, HSTROPN ####[facility] Vihkatehty[address] [place] [address]Dr. Garima Pulliam EGFR-NON AF [place] >60 Normal >=60 [facility] Comment on above: Performed By: #### C MP, BNP, HSTROPN ####[facility] Maxiwafxag16[address] [place] [address]Dr. Garima Pulliam Globulin (S) [Mass/Vol] 2.4 g/dL Normal [facility] Comment on above: Performed By: #### C MP, BNP, HSTROPN ####[facility] Bmasujosle[address] [place], [place] [address]Dr. Garima Pulliam Glucose [Mass/Vol] 85 mg/dL Normal 74-106 [facility] Comment on above: Performed By: #### C MP, BNP, HSTROPN ####[facility] Duwjwromna[address] [place] [address]Dr. Garima Pulliam Potassium [Moles/Vol] 3.7 mmol/L Normal 3.5-5.1 [facility] Comment on above: Performed By: #### C MP, BNP, HSTROPN ####[facility] Bzaylljsvm[address] [place] [address]Dr. Garima Pulliam Protein [Mass/Vol] 6.0 g/dL Critically low 6.4-8.2 [facility] Comment on above: Performed By: #### C MP, BNP, HSTROPN ####[facility] Uggkigdboe[address] [place] [address]Dr. Garima Pulliam Sodium [Moles/Vol] 141 mmol/L Normal 136-145 The [facility] Comment on above: Performed By: #### C MP, BNP, HSTROPN ####[facility] Lkbvlrvong0838 [place] [address]Dr. Garima Pulliam Urea nitrogen [Mass/Vol] 5.0 mg/dL Critically low 7.0-18.0 [facility] Comment on above: Performed By: #### C MP, BNP, HSTROPN ####[facility] Xtywespndg35[address] [place] [address]Dr. Garima Pulliam Urea nitrogen/Creatinine [Mass ratio] 7.7 mg/mg Normal The [facility] Comment on above: Performed By: #### C MP, BNP, HSTROPN ####[facility] Aeoqoguqxk[address] [place] [address]Dr. Garima Pulliam PROTIMEon 01-12-2023 INR Coag (PPP) [Relative time] 1.16 {INR} Normal The [facility] Comment on above: Performed By: #### P TT, PT ####[facility] Jwhrcguzpg[address] [place] [address]Dr. Garima Pulliam INR GUIDELINES SEE BELOW Normal The [facility] Comment on above: Result Comment: WESLEY RED INR: 2.0 - 3.0 CONDITIONS NOT LISTED BELOW 2.5 - 3.5 FOR PROSTHETIC HEART VALVE REPLACEMENT 2.5 - 3.5 RECURRENT THROMBOSIS Performed By: #### P TT, PT ####[facility] Snnieg[address] [place], [place] [address]Dr. Garima Pulliam PT Coag (PPP) [Time] 12.2 s Critically high 9.0-11.6 The [facility] Comment on above: Performed By: #### P TT, PT ####[facility] Nqssukikqw[address] [place] [address]Dr. Garima Pulliam PTTon 01-12-2023 aPTT Coag (Bld) [Time] 29.1 s Normal 22.3-36.2 The [facility] Comment on above: Performed By: #### P TT, PT ####[facility] [address]uxstx[address] [place], [place] [address]Dr. Garima Pulliam TROPONIN, HIGH SENSITIVITYon 01-12-2023 HSTROP 10.3 pg/mL Normal 4.0-76.1 The [facility] Comment on above: Result Comment: CUT- OFF POINTS HAVE BEEN ESTABLISHED BASED ON THE FOURTH UNIVERSAL DEFINITIONS OF MYOCARDIALINFARCTION. THE UPPER REFERENCE LIMIT (URL) OF TROPONIN, DEFINED THE 99TH PERCENTILE OFcTnI DISTRIBUTION IN A REFERENCE POPULATION, HAS BEEN CONFIRMED THE DECISION THRESHOLDFOR [place] DIAGNOSIS. Performed By: #### H STROPN ####[facility] Bcgymecvxz[address] [place] [address]Dr. Garima Pulliam HSTROP 9.2 pg/mL Normal 4.0-76.1 [facility] Comment on above: Result Comment: CUT- OFF POINTS HAVE BEEN ESTABLISHED BASED ON THE FOURTH UNIVERSAL DEFINITIONS OF MYOCARDIALINFARCTION. THE UPPER REFERENCE LIMIT (URL) OF TROPONIN, DEFINED THE 99TH PERCENTILE OFcTnI DISTRIBUTION IN A REFERENCE POPULATION, HAS BEEN CONFIRMED THE DECISION THRESHOLDFOR [place] DIAGNOSIS. Performed By: #### C MP, BNP, HSTROPN ####[facility] Xfrtxipdwa[address] [place] [address]Dr. Garima Pulliam XR CHEST 1 Von 01-12-2023 XR CHEST 1 V Normal [facility] XR CHEST 1 Von 01-01-2023 XR CHEST 1 V Normal [facility] CARDIAC NASH 3-6on 3 CK [Catalytic activity/Vol] 196 U/L Normal 39-308 [facility] Comment on above: Performed By: #### C MREP ####[facility] Ojnmeugtdg[address] [place] [address]Dr. Garima Pulliam CK.MB [Mass/Vol] 7.41 ng/mL Critically high <=3.60 [facility] Comment on above: Performed By: #### C MREP ####[facility] Skgtbomiyt2[address] [place] [address]Dr. Garima Pulliam HSTROP 10.3 pg/mL Normal 4.0-76.1 [facility] Comment on above: Result Comment: CUT- OFF POINTS HAVE BEEN ESTABLISHED BASED ON THE FOURTH UNIVERSAL DEFINITIONS OF MYOCARDIALINFARCTION. THE UPPER REFERENCE LIMIT (URL) OF TROPONIN, DEFINED THE 99TH PERCENTILE OFcTnI DISTRIBUTION IN A REFERENCE POPULATION, HAS BEEN CONFIRMED THE DECISION THRESHOLDFOR [place] DIAGNOSIS. Performed By: #### C MREP ####[facility] [address]uehojkosn[address] [place] [id number]. Garima Pulliam XR CHEST 1 Von 12-26-2022 XR CHEST 1 V Normal [facility] BNPon 12-25-2022 Natriuretic peptide B (Bld) [Mass/Vol] 98.0 pg/mL Normal <=900.0 [facility] Comment on above: Performed By: #### B MARVIN FRENCH CMADM ####[facility] Tgoqtknmis[address] [place] [address]Dr. Garima Pulliam CARDIAC NASH ADMITon 023 CK [Catalytic activity/Vol] 208 U/L Normal 39-308 [facility] Comment on above: Performed By: #### B MARVIN FRENCH CMADM ####[facility] Yltpkjkdkx84[address] [place] [address]Dr. Garima Pulliam CK.MB [Mass/Vol] 7.63 ng/mL Critically high <=3.60 The [facility] Comment on above: Performed By: #### B MARVIN FRENCH CMADM ####[facility] Octdsjbmqw[address] [place], [place] [address]Dr. Garima Pulliam HSTROP 8.8 pg/mL Normal 4.0-76.1 [facility] Comment on above: Result Comment: CUT- OFF POINTS HAVE BEEN ESTABLISHED BASED ON THE FOURTH UNIVERSAL DEFINITIONS OF MYOCARDIALINFARCTION. THE UPPER REFERENCE LIMIT (URL) OF TROPONIN, DEFINED THE 99TH PERCENTILE OFcTnI DISTRIBUTION IN A REFERENCE POPULATION, HAS BEEN CONFIRMED THE DECISION THRESHOLDFOR [place] DIAGNOSIS. Performed By: #### B MARVIN FRENCH CMADM ####[facility] Lrevcvsaxn[address] [place], [place] [address]Dr. Garima Pulliam DORIS 83 ng/mL Normal 16-96 The [facility] Comment on above: Performed By: #### B MARVIN FRENCH CMADM ####[facility] Kwexmlcztf[address] [place], [place] [address]Dr. Garima Pulliam CBC AUTO DIFFon 12-25-2022 BASO # 0.0 103/ul Normal 0.0-0.1 The [facility] Comment on above: Performed By: #### C BC ####[facility] Fvisxhyjia[address] [place], [place] [address]Dr. Garima Pulliam Basophils/100 WBC (Bld) 0.0 % Critically low 0.2-2.0 The [facility] Comment on above: Performed By: #### C BC ####[facility] [address] [place] [address]Dr. Garima Pulliam EO # 0.0 103/ul Normal 0.0-0.7 The [facility] Comment on above: Performed By: #### C BC ####[facility] Qwcxmkxfpa[address] [place], [place] [address]Dr. Garima Pulliam Eosinophils/100 WBC (Bld) 0.7 % Critically low 0.9-7.0 [facility] Comment on above: Performed By: #### C BC ####[facility] Lwxucksgvu[address] [place], [place] [address]Dr. Garima Pulliam Erythrocyte distribution width (RBC) [Ratio] 13.4 % Normal 11.0-15.0 [facility] Comment on above: Performed By: #### C BC ####[facility] Hwwfxrzzpb[address] [place], [place] [address]Dr. Garima Pulliam Hematocrit (Bld) [Volume fraction] 42.9 % Normal 42.0-54.0 [facility] Comment on above: Performed By: #### C BC ####[facility] Xmnninzwxg[address] [place], [place] [address]Dr. Garima Pulliam Hemoglobin (Bld) [Mass/Vol] 14.4 g/dL Normal 14.0-18.0 [facility] Comment on above: Performed By: #### C BC ####[facility] Fojsisimpk[address] [place], [place] [address]Dr. Garima Pulliam IG # 0.00 10e3/ul Normal 0.00-0.03 The [facility] Comment on above: Performed By: #### C BC ####[facility] Fcoqtxpwag04[address] [place], [place] [address]Dr. Garima Pulliam IG % 0.0 % Normal 0.0-0.5 The [facility] Comment on above: Performed By: #### C BC ####[facility] Mjufzxwqqf[address] [place], [place] [address]Dr. Garima Pulliam LYMPH # 2.4 103/ul Normal 1.2-3.8 The [facility] Comment on above: Performed By: #### C BC ####[facility] [address] [place] [id number]. Chapisrenu Pulliam Lymphocytes/100 WBC (Bld) 29.2 % Normal 20.5-60.0 [facility] Comment on above: Performed By: #### C BC ####[facility] [address]fm[address] [place] [id number]. Garima Pulliam MANUAL DIFF REQ NO Normal [facility] Comment on above: Performed By: #### C BC ####[facility] [address]ptkqtedi[address] [place] [id number]. Garima Pulliam MCH (RBC) [Entitic mass] 30.7 pg Normal 25.9-34.0 [facility] Comment on above: Performed By: #### C BC ####[facility] Gthdzagugk[address] [place], [place] [address]Dr. Garima Pulliam MCHC (RBC) [Mass/Vol] 33.6 g/dL Normal 29.9-35.2 The [facility] Comment on above: Performed By: #### C BC ####[facility] Kmcyzbjoyw[address] [place], [place] [address]Dr. Garima Pulliam MCV (RBC) [Entitic vol] 91.5 fL Normal 80.0-94.0 [facility] Comment on above: Performed By: #### C BC ####[facility] Hiuvhjazpu13[address] [place], [place] [address]Dr. Garima Pulliam MONO # 0.0 103/ul Critically low 0.3-0.8 The [facility] Comment on above: Performed By: #### C BC ####[facility] [address]qs[address] [place] [address]Dr. Garima Pulliam Monocytes/100 WBC (Bld) 8.0 % Normal 1.7-12.0 The [facility] Comment on above: Performed By: #### C BC ####[facility] Yotbvphlva[address] [place], [place] [address]Dr. Garima Pulliam NEUT # 5.1 103/ul Normal 1.4-6.5 The [facility] Comment on above: Performed By: #### C BC ####[facility] Qbe[address]12[address] [place], [place] [address]Bm. Garima Pulliam Neutrophils/100 WBC (Bld) 62.8 % Normal 43.0-75.0 [facility] Comment on above: Performed By: #### C BC ####[facility] Xexcbtrkha1890 [place], [place] [address]Hk. Garima Pulliam Platelet mean volume (Bld) [Entitic vol] 8.6 fL Critically low 9.5-13.5 [facility] Comment on above: Performed By: #### C BC ####[facility] [address]fz[address]ozsx67[address] [place] [id number]. Garima Pulliam PLT 200 103/ul Normal 150-450 The [facility] Comment on above: Performed By: #### C BC ####[facility] Silenhyxza[address] [place] [id number]. Garima Pulliam RBC 4.69 106/ul Critically low 4.70-6.10 [facility] Comment on above: Performed By: #### C BC ####[facility] Mhsulgwpwi9147 [place], [place] [address]Zr. Garima Pulliam WBC 8.2 103/ul Normal 4.0-11.0 [facility] Comment on above: Performed By: #### C BC ####[facility] Esxiifihdx4942 [place], [place] [address]Pn. Garima Pulliam [facility]on SARS-CoV-2 (COVID-19) RNA MARIE+probe Ql (Unsp spec) Not detected Normal NOT DETECTED The [facility] [...] for this test is supported by the [place] of Health and Human Service's declaration that [...] Performed By: #### C VDTBH ####[facility] Mkmjhoyw[address] [place], [place] [address]Dr. Garima Pulliam INFLUENZA A AND B AGon 12-25 INFLUANEGH SEE BELOW Normal [facility] Comment on above: Result Comment: Nega tive for Flu A protein angiten. Infection due to Flu A cannot be ruled out. Flu A angiten in the sample may be below the detection limit of the test. Performed By: #### I NFLUAB ####[facility] Izxqnzlerg[address] [place], [place] [address]Dr. Garima Pulliam INFLUBNEGH SEE BELOW Normal The [facility] Comment on above: Result Comment: Nega tive for Flu B protein antigen. Infection due to Flu B cannot be ruled out. Flu B antigen in the sample may be below the detection limit of the test. Performed By: #### I NFLUAB ####[facility] [address]qmc[address] [place], [place] [address]Dr. Garima Pulliam INFLUENZA A AG Negative Normal NEGATIVE SEE COMMENT [facility] Comment on above: Performed By: #### I NFLUAB ####[facility] Jgsfahwtsy[address] [place], [place] [address]Dr. renu [facility] INFLUENZA B AG Negative Normal NEGATIVE SEE COMMENT [facility] Comment on above: Performed By: #### I NFLUAB ####[facility] F[address]xezsuhpq[address] [place], [place] [address]Dr. Garima Pulliam PROF CHEM 8 (BAS METB)on Anion gap [Moles/Vol] 11.1 mmol/L Normal [facility] Comment on above: Performed By: #### B HELMET HAT SWEATBAND PUNCHER, BMP, CMADM ####[facility] Q[address]ztwp[address] [place], [place] [address]Dr. Garima Pulliam Calcium [Mass/Vol] 8.5 mg/dL Normal 8.5-10.1 The [facility] Comment on above: Performed By: #### B HELMET HAT SWEATBAND PUNCHER, MARVIN, CMADM ####[facility] [address] [place] [id number]. Garima Pulliam Chloride [Moles/Vol] 106 mmol/L Normal 98-107 [facility] Comment on above: Performed By: #### B HELMET HAT SWEATBAND PUNCHER, BMP, CMADM ####[facility] [address] [place] [address]Dr. Garima Pulliam CO2 [Moles/Vol] 27.4 mmol/L Normal 21.0-32.0 The [facility] Comment on above: Performed By: #### B HELMET HAT SWEATBAND PUNCHER, MARVIN, CMADM ####[facility] [address] [place] [address]Dr. Garima Pulliam Creatinine [Mass/Vol] 0.65 mg/dL Critically low 0.70-1.30 [facility] Comment on above: Performed By: #### B HELMET HAT SWEATBAND PUNCHER, MARVIN, CMADM ####[facility] [address] [place] [address]Dr. Garima Pulliam EGFR-AF EAST [place] >60 Normal >=60 [place] Comment on above: Performed By: #### B HELMET HAT SWEATBAND PUNCHER, BMP, CMADM ####[facility] [address] [place] [address]Dr. Garima Pulliam EGFR-NON AF [place] >60 Normal >=60 [facility] Comment on above: Performed By: #### B HELMET HAT SWEATBAND PUNCHER, BMP, CMADM ####[facility] [address] [place] [address]Dr. Garima Pulliam Glucose [Mass/Vol] 140 mg/dL Critically high 74-106 [facility] Comment on above: Performed By: #### B HELMET HAT SWEATBAND PUNCHER, BMP, CMADM ####[facility] [address] [place] [address]Dr. Garima Pulliam Potassium [Moles/Vol] 3.5 mmol/L Normal 3.5-5.1 [facility] Comment on above: Performed By: #### B HELMET HAT SWEATBAND PUNCHER, BMP, CMADM ####[facility] [address]sev[address]mj[address] [place] [address]Dr. Garima Pulliam Sodium [Moles/Vol] 141 mmol/L Normal 136-145 [facility] Comment on above: Performed By: #### B HELMET HAT SWEATBAND PUNCHER, BMP, CMADM ####[facility] [address] [place] [address]Dr. Garima Pulliam Urea nitrogen [Mass/Vol] 8.0 mg/dL Normal 7.0-18.0 [facility] Comment on above: Performed By: #### B HELMET HAT SWEATBAND PUNCHER, BMP, CMADM ####[facility] [address] [place] [address]Dr. Garima Pulliam Urea nitrogen/Creatinine [Mass ratio] 12.3 mg/mg Normal [facility] Comment on above: Performed By: #### B HELMET HAT SWEATBAND PUNCHER, BMP, CMADM ####[facility] [address]qpx[address] [place], [place] [address]Dr. Garima Pulliam CARDIAC NASH ADMITon 023 CK [Catalytic activity/Vol] 165 U/L Normal 39-308 [facility] Comment on above: Performed By: #### B DAVID, CMADM ####[facility] Dobebiwfoo[address] [place], [place] [address]Dr. Garima Pulliam CK.MB [Mass/Vol] 6.48 ng/mL Critically high <=3.60 [facility] Comment on above: Performed By: #### B MP, CMADM ####[facility] [address]fcjxttfc[address] [place], [place] [address]Dr. Garima Pulliam HSTROP 11.7 pg/mL Normal 4.0-76.1 [facility] Comment on above: Result Comment: CUT- OFF POINTS HAVE BEEN ESTABLISHED BASED ON THE FOURTH UNIVERSAL DEFINITIONS OF MYOCARDIALINFARCTION. THE UPPER REFERENCE LIMIT (URL) OF TROPONIN, DEFINED THE 99TH PERCENTILE OFcTnI DISTRIBUTION IN A REFERENCE POPULATION, HAS BEEN CONFIRMED THE DECISION THRESHOLDFOR [place] DIAGNOSIS. Performed By: #### B MP, CMADM ####[facility] Xvvyhwepoj[address] [place], [place] [address]Dr. Garima Pulliam DORIS 83 ng/mL Normal 16-96 The [facility] Comment on above: Performed By: #### B MP, CMADM ####[facility] [address] [place] [address]Dr. Garima Pulliam CBC AUTO DIFFon 12-10-2022 BASO # 0.0 103/ul Normal 0.0-0.1 The [facility] Comment on above: Performed By: #### C BC ####[facility] Y[address]lnuswzyd[address] [place], [place] [address]Dr. Garima Heraclio Basophils/100 WBC (Bld) 0.3 % Normal 0.2-2.0 The [facility] Comment on above: Performed By: #### C BC ####[facility] Asiwihydfm[address] [place], [place] [address]Dr. Garima Pulliam EO # 0.1 103/ul Normal 0.0-0.7 The [facility] Comment on above: Performed By: #### C BC ####[facility] Jvpvexrnzu[address] [place], [place] [address]Dr. Garima Pulliam Eosinophils/100 WBC (Bld) 0.4 % Critically low 0.9-7.0 The [facility] Comment on above: Performed By: #### C BC ####[facility] Ieixrjevgs[address] [place], [place] [address]Dr. Garima Pulliam Erythrocyte distribution width (RBC) [Ratio] 13.2 % Normal 11.0-15.0 The [facility] Comment on above: Performed By: #### C BC ####[facility] Jiglpfcwim[address] [place], [place] [address]Dr. Garima Pulliam Hematocrit (Bld) [Volume fraction] 42.4 % Normal 42.0-54.0 The [facility] Comment on above: Performed By: #### C BC ####[facility] Slmdvopphv[address] [place], [place] [address]Dr. Garima Pulliam Hemoglobin (Bld) [Mass/Vol] 14.4 g/dL Normal 14.0-18.0 The [facility] Comment on above: Performed By: #### C BC ####[facility] If[address] [place] [id number]. Garima Heraclio IG # 0.05 10e3/ul Critically high 0.00-0.03 The [facility] Comment on above: Performed By: #### C BC ####[facility] Ox[address]jl[address] [place] [address]Dr. Garima Heraclio IG % 0.4 % Normal 0.0-0.5 The [facility] Comment on above: Performed By: #### C BC ####[facility] Adqjqfzf[address] [place], [place] [address]Dr. Garima Pulliam LYMPH # 0.8 103/ul Critically low 1.2-3.8 The [facility] Comment on above: Performed By: #### C BC ####[facility] Tqxvoipxvf[address] [place], [place] [address]Dr. Chapisrenu Pulliam Lymphocytes/100 WBC (Bld) 6.5 % Critically low 20.5-60.0 The [facility] Comment on above: Performed By: #### C BC ####[facility] I[address]cyskpdw[address] [place], [place] [address]Dr. Chapisrenu Pulliam MANUAL DIFF REQ NO Normal [facility] Comment on above: Performed By: #### C BC ####[facility] Livrgmmbfx[address] [place], [place] [address]DrAdalberto Garima Pulliam MCH (RBC) [Entitic mass] 30.5 pg Normal 25.9-34.0 The [facility] Comment on above: Performed By: #### C BC ####[facility] Yhgivqwtlo[address] [place], [place] [address]DrAdalberto Garima Heraclio MCHC (RBC) [Mass/Vol] 34.0 g/dL Normal 29.9-35.2 The [facility] Comment on above: Performed By: #### C BC ####[facility] Ganpnseij[address] [place], [place] [address]DrAdalberto Garima Heraclio MCV (RBC) [Entitic vol] 89.8 fL Normal 80.0-94.0 The [facility] Comment on above: Performed By: #### C BC ####[facility] Ahioitgevb[address] [place], [place] [address]Dr. Garima Pulliam MONO # 0.2 103/ul Critically low 0.3-0.8 The [facility] Comment on above: Performed By: #### C BC ####[facility] [address] [place] [id number]. Garima Pulliam Monocytes/100 WBC (Bld) 2.0 % Normal 1.7-12.0 The [facility] Comment on above: Performed By: #### C BC ####[facility] [address] [place] [address]Dr. Chapisrenu Heraclio NEUT # 10.5 103/ul Critically high 1.4-6.5 The [facility] Comment on above: Performed By: #### C BC ####[facility] [address]xlihorumm[address] [place] [address]Dr. Garima Pulliam Neutrophils/100 WBC (Bld) 90.4 % Critically high 43.0-75.0 The [facility] Comment on above: Performed By: #### C BC ####[facility] Mgubxbzfwe[address] [place] [address]Dr. Garima Pulliam Platelet mean volume (Bld) [Entitic vol] 9.4 fL Critically low 9.5-13.5 The [facility] Comment on above: Performed By: #### C BC ####[facility] L[address]ijmqzla[address] [place] [address]Dr. Garima Pulliam PLT 198 103/ul Normal 150-450 The [facility] Comment on above: Performed By: #### C BC ####[facility] Xxhigrhyfi6[address] [place] [address]Dr. Garima Pulliam RBC 4.72 106/ul Normal 4.70-6.10 The [facility] Comment on above: Performed By: #### C BC ####[facility] Oce[address]vlbbe[address] [place] [id number]. Garima Pulliam WBC 11.6 103/ul Critically high 4.0-11.0 The [facility] Comment on above: Performed By: #### C BC ####[facility] W[address]xwwel74[address] [place] [address]DrAdalberto Pulliam PROF CHEM 8 (BAS METB)on Anion gap [Moles/Vol] 11.3 mmol/L Normal Th [facility] Comment on above: Performed By: #### B NANCY HERNANDEZ ####[facility] [address]uiq[address] [place] [address]Dr. Garima Pulliam Calcium [Mass/Vol] 8.9 mg/dL Normal 8.5-10.1 [facility] Comment on above: Performed By: #### B NANCY HERNANDEZ ####[facility] Trjdphbxdb[address] [place] [address]Dr. Garima Pulliam Chloride [Moles/Vol] 103 mmol/L Normal 98-107 [facility] Comment on above: Performed By: #### B NANCY HERNANDEZ ####[facility] Wy[address]xqkuzeu[address] [place], [place] [address]Dr. Garima Pulliam CO2 [Moles/Vol] 28.2 mmol/L Normal 21.0-32.0 [place] Comment on above: Performed By: #### NANCY Larkin MP ####[facility] [address]ss[address] [place] [address]Dr. Chapisrenu Pulliam Creatinine [Mass/Vol] 0.60 mg/dL Critically low 0.70-1.30 [facility] Comment on above: Performed By: #### NANCY Larkin MP ####[facility] Xhfdrjpmub[address] [place] [address]Dr. Garima Pulliam EGFR-AF [place] >60 Normal >=60 [place] Comment on above: Performed By: #### NANCY Larkin MP ####[facility] Mqdgmctmxv[address] [place] [address]Dr. Garima Pulliam EGFR-NON AF [place] >60 Normal >=60 [facility] Comment on above: Performed By: #### NANCY Larkin MP ####[facility] Aktvybngba[address] [place], [place] [address]Dr. Garima Pulliam Glucose [Mass/Vol] 166 mg/dL Critically high 74-106 [facility] Comment on above: Performed By: #### B MP, CMADM ####[facility] J[address]oumle[address] [place] [address]Dr. Garima Pulliam Potassium [Moles/Vol] 3.5 mmol/L Normal 3.5-5.1 The [facility] Comment on above: Performed By: #### B MP, CMADM ####[facility] [address]tz[address]okmn[address] [place] [address]Dr. Garima Pulliam Sodium [Moles/Vol] 139 mmol/L Normal 136-145 The [facility] Comment on above: Performed By: #### B DAVID, CMADM ####[facility] Nwifmqwsmz28[address] [place] [address]Dr. Garima Heraclio Urea nitrogen [Mass/Vol] 9.0 mg/dL Normal 7.0-18.0 The [facility] Comment on above: Performed By: #### B DAVID, NANCY ####[facility] Tsfzzcikrm[address] [place], [place] [address]Dr. Garima Heraclio Urea nitrogen/Creatinine [Mass ratio] 15.0 mg/mg Normal [facility] Comment on above: Performed By: #### B DAVID, CMAANA ROSA ####[facility] Gyxxrrasua[address] [place], [place] [address]Dr. Garima Pulliam XR CHEST 1 Von 12-10-2022 XR CHEST 1 V Normal The [facility] BNPon 11-27-2022 Natriuretic peptide B (Bld) [Mass/Vol] 95.0 pg/mL Normal <=900.0 The [facility] Comment on above: Performed By: #### C MP, HSTROPN, BNP ####[facility] Fqmvzxucnp[address] [place], [place] [address]Dr. Garima Heraclio CBC AUTO DIFFon 11-27-2022 BASO # 0.0 103/ul Normal 0.0-0.1 The [facility] Comment on above: Performed By: #### C BC ####[facility] Eeftjemkqt[address] [place], [place] [address]Dr. Garima Heraclio Basophils/100 WBC (Bld) 0.2 % Normal 0.2-2.0 The [facility] Comment on above: Performed By: #### C BC ####[facility] Fggrnlurko69[address] [place] [id number]. Garima Pulliam EO # 0.2 103/ul Normal 0.0-0.7 The [facility] Comment on above: Performed By: #### C BC ####[facility] Qvpvjcpksp9042 [place] [id number]. Garima Pulliam Eosinophils/100 WBC (Bld) 2.0 % Normal 0.9-7.0 The [facility] Comment on above: Performed By: #### C BC ####[facility] Tikqrruyvt[address] [place], [place] [address]Dr. Garima Pulliam Erythrocyte distribution width (RBC) [Ratio] 13.2 % Normal 11.0-15.0 The [facility] Comment on above: Performed By: #### C BC ####[facility] Zkq[address]ftzen[address] [place], [place] [address]Dr. Garima Pulliam Hematocrit (Bld) [Volume fraction] 42.4 % Normal 42.0-54.0 The [facility] Comment on above: Performed By: #### C BC ####[facility] Yyljgsusvj[address] [place], [place] [address]Dr. Garima Pulliam Hemoglobin (Bld) [Mass/Vol] 14.4 g/dL Normal 14.0-18.0 The [facility] Comment on above: Performed By: #### C BC ####[facility] Cfaepaffnb[address] [place], [place] [address]Dr. Garima Pulliam IG # 0.04 10e3/ul Critically high 0.00-0.03 The [facility] Comment on above: Performed By: #### C BC ####[facility] [address]zq[address] [place], [place] [address]Dr. Garima Pulliam IG % 0.4 % Normal 0.0-0.5 The [facility] Comment on above: Performed By: #### C BC ####[facility] Ahaipdniww[address] [place], [place] [address]Dr. Garima Pulliam LYMPH # 2.2 103/ul Normal 1.2-3.8 The [facility] Comment on above: Performed By: #### C BC ####[facility] [address]ycdugok[address] [place] [id number]. Garima Pulliam Lymphocytes/100 WBC (Bld) 21.5 % Normal 20.5-60.0 The [facility] Comment on above: Performed By: #### C BC ####[facility] Tjgutouiiw7[address] [place] [id number]. Garima Heraclio MANUAL DIFF REQ NO Normal [facility] Comment on above: Performed By: #### C BC ####[facility] Qqntyzxonb8182 [place] [id number]. Garima Heraclio MCH (RBC) [Entitic mass] 30.4 pg Normal 25.9-34.0 The [facility] Comment on above: Performed By: #### C BC ####[facility] F[address]klzzoljv[address] [place] [address]Dr. Garima Heraclio MCHC (RBC) [Mass/Vol] 34.0 g/dL Normal 29.9-35.2 The [facility] Comment on above: Performed By: #### C BC ####[facility] Jf[address]fqybjvp83[address] [place] [id number]. Garima Pulliam MCV (RBC) [Entitic vol] 89.6 fL Normal 80.0-94.0 The [facility] Comment on above: Performed By: #### C BC ####[facility] Wwufzcxbhb0898 [place] [id number]. Garima Pulliam MONO # 0.8 103/ul Normal 0.3-0.8 [facility] Comment on above: Performed By: #### C BC ####[facility] [address] [place] [id number]. Chapisrenu Pulliam Monocytes/100 WBC (Bld) 7.7 % Normal 1.7-12.0 [facility] Comment on above: Performed By: #### C BC ####[facility] Eesnyaad[address] [place], [place] [address]Dr. Garima Pulliam NEUT # 7.0 103/ul Critically high 1.4-6.5 The [facility] Comment on above: Performed By: #### C BC ####[facility] [address] [place] [id number]. Garima Pulliam Neutrophils/100 WBC (Bld) 68.2 % Normal 43.0-75.0 [facility] Comment on above: Performed By: #### C BC ####[facility] Xzgsdoynwz[address] [place] [id number]. Chapisrenu Pulliam Platelet mean volume (Bld) [Entitic vol] 8.9 fL Critically low 9.5-13.5 [facility] Comment on above: Performed By: #### C BC ####[facility] [address] [place] [address]Dr. Garima Pulliam PLT 222 103/ul Normal 150-450 [facility] Comment on above: Performed By: #### C BC ####[facility] [address] [place] [address]Dr. Garima Pulliam RBC 4.73 106/ul Normal 4.70-6.10 [facility] Comment on above: Performed By: #### C BC ####[facility] Kor[address] [place] [address]Dr. Garima Pulliam WBC 10.3 103/ul Normal 4.0-11.0 [facility] Comment on above: Performed By: #### C BC ####[facility] Ssp[address]ixe[address] [place] [address]Dr. Garima Pulliam PROF 14(COMP METB)on 023 Albumin [Mass/Vol] 3.7 g/dL Normal 3.4-5.0 [facility] Comment on above: Performed By: #### C MP, HSTROPN, BNP ####[facility] [address] [place] [address]Dr. Chapisrenu Pulliam Albumin/Globulin [Mass ratio] 1.5 {ratio} Normal [facility] Comment on above: Performed By: #### C MP, HSTROPN, BNP ####[facility] Ranccwo[address] [place] [address]Dr. Garima Pulliam ALP [Catalytic activity/Vol] 79 U/L Normal 46-116 [facility] Comment on above: Performed By: #### C MP, HSTROPN, BNP ####[facility] [address] [place] [address]Dr. Garima Pulliam ALT [Catalytic activity/Vol] 32 U/L Normal 16-63 [facility] Comment on above: Performed By: #### C MP, HSTROPN, BNP ####[facility] [address]oumoqv[address] [place] [address]Dr. Garima Pulliam Anion gap [Moles/Vol] 9.5 mmol/L Normal [facility] Comment on above: Performed By: #### C MP, HSTROPN, BNP ####[facility] Nwe[address] [place], [place] [address]Dr. Garima Pulliam AST [Catalytic activity/Vol] 25 U/L Normal 15-37 [facility] Comment on above: Performed By: #### C MP, HSTROPN, BNP ####[facility] Zubxj[address] [place], [place] [address]Dr. Chapislan Pulliam Bilirubin [Mass/Vol] 0.4 mg/dL Normal 0.2-1.0 [facility] Comment on above: Performed By: #### C MP, HSTROPN, BNP ####[facility] Avesisomte[address] [place], [place] [address]Dr. Garima Pulliam Calcium [Mass/Vol] 8.9 mg/dL Normal 8.5-10.1 [facility] Comment on above: Performed By: #### C MP, HSTROPN, BNP ####[facility] Z[address]ujt[address] [place], [place] [address]Dr. Chapislan Pulliam Chloride [Moles/Vol] 103 mmol/L Normal 98-107 [facility] Comment on above: Performed By: #### C MP, HSTROPN, BNP ####[facility] Voc[address] [place], [place] [address]Dr. Yilan Pulliam CO2 [Moles/Vol] 28.6 mmol/L Normal 21.0-32.0 The [facility] Comment on above: Performed By: #### C MP, HSTROPN, BNP ####[facility] [address] [place] [address]Dr. Garima Pulliam Creatinine [Mass/Vol] 0.72 mg/dL Normal 0.70-1.30 [facility] Comment on above: Performed By: #### C MP, HSTROPN, BNP ####[facility] Sex[address]vqy[address] [place] [address]Dr. Garima Pulliam EGFR-AF [place] >60 Normal >=60 [place] Comment on above: Performed By: #### C MP, HSTROPN, BNP ####[facility] [address]jtksx[address] [place] [address]Dr. Garima Pulliam EGFR-NON AF [place] >60 Normal >=60 [facility] Comment on above: Performed By: #### C MP, HSTROPN, BNP ####[facility] N[address]mrwh[address]wx[address] [place] [address]Dr. Garima Pulliam Globulin (S) [Mass/Vol] 2.5 g/dL Normal [facility] Comment on above: Performed By: #### C MP, HSTROPN, BNP ####[facility] G[address]pcxzkq[address] [place], [place] [address]Dr. Garima Pulliam Glucose [Mass/Vol] 114 mg/dL Critically high 74-106 [facility] Comment on above: Performed By: #### C MP, HSTROPN, BNP ####[facility] Vvwhuhqn[address] [place], [place] [address]Dr. Garima Pulliam Potassium [Moles/Vol] 4.1 mmol/L Normal 3.5-5.1 [facility] Comment on above: Performed By: #### C MP, HSTROPN, BNP ####[facility] [address]texy[address] [place], [place] [address]Dr. Garima Pulliam Protein [Mass/Vol] 6.2 g/dL Critically low 6.4-8.2 [facility] Comment on above: Performed By: #### C MP, HSTROPN, BNP ####[facility] Sqkmms[address] [place], [place] [address]Dr. Yilan Pulliam Sodium [Moles/Vol] 137 mmol/L Normal 136-145 The [facility] Comment on above: Performed By: #### C MP, HSTROPN, BNP ####[facility] [address] [place] [address]Dr. Garima Pulliam Urea nitrogen [Mass/Vol] 13.0 mg/dL Normal 7.0-18.0 [facility] Comment on above: Performed By: #### C MP, HSTROPN, BNP ####[facility] [address] [place] [address]Dr. Garima Pulliam Urea nitrogen/Creatinine [Mass ratio] 18.1 mg/mg Normal [facility] Comment on above: Performed By: #### C MP, HSTROPN, BNP ####[facility] Fbc[address] [place], [place] [address]Dr. Garima Pulliam TROPONIN, HIGH SENSITIVITYon 11-27-2022 HSTROP 11.8 pg/mL Normal 4.0-76.1 [facility] Comment on above: Result Comment: CUT- OFF POINTS HAVE BEEN ESTABLISHED BASED ON THE FOURTH UNIVERSAL DEFINITIONS OF MYOCARDIALINFARCTION. THE UPPER REFERENCE LIMIT (URL) OF TROPONIN, DEFINED THE 99TH PERCENTILE OFcTnI DISTRIBUTION IN A REFERENCE POPULATION, HAS BEEN CONFIRMED THE DECISION THRESHOLDFOR [place] DIAGNOSIS. Performed By: #### C MP, HSTROPN, BNP ####[facility] [address] [place], [place] [address]Dr. Garima Pulliam XR CHEST 1 Von 11-27-2022 XR CHEST 1 V Normal [facility] BNPon 11-20-2022 Natriuretic peptide B (Bld) [Mass/Vol] 73.0 pg/mL Normal <=900.0 [facility] Comment on above: Performed By: #### B MP, HSTROPN, BNP ####[facility] [address]ib[address] [place], [place] [address]Dr. Garima Pulliam CBC AUTO DIFFon 11-20-2022 BASO # 0.0 103/ul Normal 0.0-0.1 [facility] Comment on above: Performed By: #### C BC ####[facility] [address] [place] [id number]. Garima Pulliam Basophils/100 WBC (Bld) 0.3 % Normal 0.2-2.0 [facility] Comment on above: Performed By: #### C BC ####[facility] B[address] [place] [id number]. Garima Pulliam EO # 0.2 103/ul Normal 0.0-0.7 [facility] Comment on above: Performed By: #### C BC ####[facility] [address] [place] [address]Dr. Garima Pulliam Eosinophils/100 WBC (Bld) 2.1 % Normal 0.9-7.0 [facility] Comment on above: Performed By: #### C BC ####[facility] Qs[address] [place], [place] [address]Dr. Garima Pulliam Erythrocyte distribution width (RBC) [Ratio] 13.2 % Normal 11.0-15.0 [facility] Comment on above: Performed By: #### C BC ####[facility] V[address] [place], [place] [address]Dr. Garima Pulliam Hematocrit (Bld) [Volume fraction] 43.4 % Normal 42.0-54.0 [facility] Comment on above: Performed By: #### C BC ####[facility] [address] [place], [place] [address]Dr. Garima Pulliam Hemoglobin (Bld) [Mass/Vol] 14.6 g/dL Normal 14.0-18.0 [facility] Comment on above: Performed By: #### C BC ####[facility] [address] [place] [id number]. Garima Pulliam IG # 0.02 10e3/ul Normal 0.00-0.03 [facility] Comment on above: Performed By: #### C BC ####[facility] [address] [place] [address]Dr. Garima Pulliam IG % 0.2 % Normal 0.0-0.5 [facility] Comment on above: Performed By: #### C BC ####[facility] [address]ft[address] [place] [id number]. Garima Heraclio LYMPH # 2.1 103/ul Normal 1.2-3.8 [facility] Comment on above: Performed By: #### C BC ####[facility] [address]irsp[address]vf[address] [place] [id number]. Garima Heraclio Lymphocytes/100 WBC (Bld) 19.2 % Critically low 20.5-60.0 [facility] Comment on above: Performed By: #### C BC ####[facility] [address]fds[address] [place] [id number]. Chapisrenu Pulliam MANUAL DIFF REQ NO Normal [facility] Comment on above: Performed By: #### C BC ####[facility] [address]axvlk[address] [place] [id number]. Garima Heraclio MCH (RBC) [Entitic mass] 30.4 pg Normal 25.9-34.0 [facility] Comment on above: Performed By: #### C BC ####[facility] [address] [place] [address]Dr. Garima Pulliam MCHC (RBC) [Mass/Vol] 33.6 g/dL Normal 29.9-35.2 [facility] Comment on above: Performed By: #### C BC ####[facility] [address]qix[address] [place] [id number]. Garima Heraclio MCV (RBC) [Entitic vol] 90.4 fL Normal 80.0-94.0 [facility] Comment on above: Performed By: #### C BC ####[facility] X[address]rl[address] [place] [id number]. Garima Heraclio MONO # 0.6 103/ul Normal 0.3-0.8 [facility] Comment on above: Performed By: #### C BC ####[facility] [address] [place] [address]Dr. Garima Heraclio Monocytes/100 WBC (Bld) 5.8 % Normal 1.7-12.0 [facility] Comment on above: Performed By: #### C BC ####[facility] [address] [place], [place] [address]Qe. Garima Pulliam NEUT # 7.8 103/ul Critically high 1.4-6.5 [facility] Comment on above: Performed By: #### C BC ####[facility] [address] [place] [id number]. Garima Pulliam Neutrophils/100 WBC (Bld) 72.4 % Normal 43.0-75.0 [facility] Comment on above: Performed By: #### C BC ####[facility] [address]wecpxktby[address] [place] [id number]. Garima Pulliam Platelet mean volume (Bld) [Entitic vol] 8.7 fL Critically low 9.5-13.5 The [facility] Comment on above: Performed By: #### C BC ####[facility] Ndvnanjqiu[address] [place] [id number]. Garima Pulliam PLT 184 103/ul Normal 150-450 [facility] Comment on above: Performed By: #### C BC ####[facility] K[address]do[address] [place], [place] [address]Dv. Garima Pulliam RBC 4.80 106/ul Normal 4.70-6.10 [facility] Comment on above: Performed By: #### C BC ####[facility] Hxmwxsihqx29[address] [place] [id number]. Garima Pulliam WBC 10.8 103/ul Normal 4.0-11.0 [facility] Comment on above: Performed By: #### C BC ####[facility] R[address]ckc[address] [place] [id number]. Garima Pulliam [facility]24 SARS-CoV-2 (COVID-19) RNA MARIE+probe Ql (Unsp spec) Not detected Normal NOT DETECTED [facility] [...] for this test is supported by the [place] of Health and Human Service's declaration that [...] Performed By: #### C VDTBH ####[facility] S[address]xfyvs[address] [place], [place] [address]Dr. Garima Pulliam INFLUENZA A AND B AGon 11-[facility] BELOW Normal [facility] Comment on above: Result Comment: Nega tive for Flu A protein angiten. Infection due to Flu A cannot be ruled out. Flu A angiten in the sample may be below the detection limit of the test. Performed By: #### I NFLUAB ####[facility] V[address]act[address] [place], [place] [address]Dr. Garima Pulliam INFLUBNEGH SEE BELOW Normal [facility] Comment on above: Result Comment: Nega tive for Flu B protein antigen. Infection due to Flu B cannot be ruled out. Flu B antigen in the sample may be below the detection limit of the test. Performed By: #### I NFLUAB ####[facility] [address]ec[address] [place], [place] [address]Dr. Garima Pulliam INFLUENZA A AG Negative Normal NEGATIVE SEE COMMENT The [facility] Comment on above: Performed By: #### I NFLUAB ####[facility] Tym[address]hqu[address] [place], [place] [address]Dr. Garima [facility] INFLUENZA B AG Negative Normal NEGATIVE SEE COMMENT The [facility] Comment on above: Performed By: #### I NFLUAB ####[facility] Kswsawj[address] [place], [place] [address]Dr. Garima Pulliam PROF CHEM 8 (BAS METB)on Anion gap [Moles/Vol] 8.2 mmol/L Normal [facility] Comment on above: Performed By: #### B MP, HSTROPN, BNP ####[facility] [address] [place] [address]Dr. Garima Pulliam Calcium [Mass/Vol] 8.7 mg/dL Normal 8.5-10.1 [facility] Comment on above: Performed By: #### B MP, HSTROPN, BNP ####[facility] [address]ooi[address] [place] [address]Dr. Garima Pulliam Chloride [Moles/Vol] 103 mmol/L Normal 98-107 [facility] Comment on above: Performed By: #### B MP, HSTROPN, BNP ####[facility] Kaper[address]inx[address] [place], [place] [address]Dr. Garima Pulliam CO2 [Moles/Vol] 29.4 mmol/L Normal 21.0-32.0 The [facility] Comment on above: Performed By: #### B MP, HSTROPN, BNP ####[facility] Xfqwlklbxx[address] [place], [place] [address]Dr. Garima Pulliam Creatinine [Mass/Vol] 0.69 mg/dL Critically low 0.70-1.30 [facility] Comment on above: Performed By: #### B MP, HSTROPN, BNP ####[facility] [address] [place] [address]Dr. Garima Pulliam EGFR-AF [place] >60 Normal >=60 [facility] Comment on above: Performed By: #### B MP, HSTROPN, BNP ####[facility] [address]cckxq[address]so[address] [place], [place] [address]Dr. Garima Pullima EGFR-NON AF [place] >60 Normal >=60 [facility] Comment on above: Performed By: #### B MP, HSTROPN, BNP ####[facility] [address]zccfi[address] [place] [address]Dr. Garima Pulliam Glucose [Mass/Vol] 209 mg/dL Critically high 74-106 [facility] Comment on above: Performed By: #### B MP, HSTROPN, BNP ####[facility] Rqpewxgiei[address] [place] [address]Dr. Garima Pulliam Potassium [Moles/Vol] 3.6 mmol/L Normal 3.5-5.1 [facility] Comment on above: Performed By: #### B MP, HSTROPN, BNP ####[facility] [address]eltq[address]oe[address] [place] [address]Dr. Garima Pulliam Sodium [Moles/Vol] 137 mmol/L Normal 136-145 The [facility] Comment on above: Performed By: #### B MP, HSTROPN, BNP ####[facility] Tkvmspnavw[address] [place] [address]Dr. Garima Pulliam Urea nitrogen [Mass/Vol] 11.0 mg/dL Normal 7.0-18.0 [facility] Comment on above: Performed By: #### B MP, HSTROPN, BNP ####[facility] Z[address]udxhqcl[address] [place] [address]Dr. Garima Pulliam Urea nitrogen/Creatinine [Mass ratio] 15.9 mg/mg Normal [facility] Comment on above: Performed By: #### B MP, HSTROPN, BNP ####[facility] [address] [place] [address]Dr. Garima Pulliam TROPONIN, HIGH SENSITIVITYon 11-20-2022 HSTROP 8.7 pg/mL Normal 4.0-76.1 [facility] Comment on above: Result Comment: CUT- OFF POINTS HAVE BEEN ESTABLISHED BASED ON THE FOURTH UNIVERSAL DEFINITIONS OF MYOCARDIALINFARCTION. THE UPPER REFERENCE LIMIT (URL) OF TROPONIN, DEFINED THE 99TH PERCENTILE OFcTnI DISTRIBUTION IN A REFERENCE POPULATION, HAS BEEN CONFIRMED THE DECISION THRESHOLDFOR [place] DIAGNOSIS. Performed By: #### B MP, HSTROPN, BNP ####[facility] [address]qcbxyc[address] [place] [address]Dr. Garima Pulliam XR CHEST 1 Von 11-20-2022 XR CHEST 1 V Normal [facility] XR CHEST 1 Von 10-02-2022 XR CHEST 1 V Normal [facility] BNPon 09-29-2022 Natriuretic peptide B (Bld) [Mass/Vol] 107.0 pg/mL Normal <=900.0 [facility] Comment on above: Performed By: #### C MP, BNP, CMADM ####[facility] [address]bxkbcefgf[address] [place] [address]Dr. Garima Pulliam CARDIAC NASH ADMITon 022 CK [Catalytic activity/Vol] 190 U/L Normal 39-308 [facility] Comment on above: Performed By: #### C MP, BNP, CMADM ####[facility] [address]qvsxxgh[address] [place] [address]Dr. Garima Heraclio CK.MB [Mass/Vol] 11.11 ng/mL Critically high <=3.60 [facility] Comment on above: Performed By: #### C MP, BNP, CMADM ####[facility] [address]irc[address] [place] [address]Dr. Garima Pulliam HSTROP 11.8 pg/mL Normal 4.0-76.1 [facility] Comment on above: Result Comment: CUT- OFF POINTS HAVE BEEN ESTABLISHED BASED ON THE FOURTH UNIVERSAL DEFINITIONS OF MYOCARDIALINFARCTION. THE UPPER REFERENCE LIMIT (URL) OF TROPONIN, DEFINED THE 99TH PERCENTILE OFcTnI DISTRIBUTION IN A REFERENCE POPULATION, HAS BEEN CONFIRMED THE DECISION THRESHOLDFOR [place] DIAGNOSIS. Performed By: #### C MP, BNP, CMADM ####[facility] [address]hsse[address] [place] [address]Dr. Garima Pulliam DORIS 133 ng/mL Critically high 16-96 [facility] Comment on above: Performed By: #### C MP, BNP, CMADM ####[facility] [address]fcn[address] [place] [address]Dr. Garima Heraclio CBC AUTO DIFFon 09-29-2022 BASO # 0.0 103/ul Normal 0.0-0.1 [facility] Comment on above: Performed By: #### C BC ####[facility] Ekevuvwwgh[address] [place] [address]Dr. Garima Heraclio Basophils/100 WBC (Bld) 0.2 % Normal 0.2-2.0 [facility] Comment on above: Performed By: #### C BC ####[facility] [address]zoqijhnih[address] [place] [id number]. Garima Pulliam EO # 0.1 103/ul Normal 0.0-0.7 [facility] Comment on above: Performed By: #### C BC ####[facility] W[address]luueef85[address] [place] [id number]. Garima Pulliam Eosinophils/100 WBC (Bld) 1.4 % Normal 0.9-7.0 [facility] Comment on above: Performed By: #### C BC ####[facility] [address] [place], [place] [address]Dr. Garima Pulliam Erythrocyte distribution width (RBC) [Ratio] 13.7 % Normal 11.0-15.0 [facility] Comment on above: Performed By: #### C BC ####[facility] Msijugqcfc[address] [place], [place] [address]Dr. Garmia Pulliam Hematocrit (Bld) [Volume fraction] 45.4 % Normal 42.0-54.0 [facility] Comment on above: Performed By: #### C BC ####[facility] [address]whwmkn[address] [place], [place] [address]Dr. Garima Pulliam Hemoglobin (Bld) [Mass/Vol] 14.8 g/dL Normal 14.0-18.0 [facility] Comment on above: Performed By: #### C BC ####[facility] Ebnepnudjg[address] [place], [place] [address]Dr. Garima Pulliam IG # 0.04 10e3/ul Critically high 0.00-0.03 [facility] Comment on above: Performed By: #### C BC ####[facility] Hvstwlnto[address] [place], [place] [address]Dr. Garima Pulliam IG % 0.5 % Normal 0.0-0.5 [facility] Comment on above: Performed By: #### C BC ####[facility] Lurvoojdsp[address] [place], [place] [address]Dr. Garima Pulliam LYMPH # 1.1 103/ul Critically low 1.2-3.8 The [facility] Comment on above: Performed By: #### C BC ####[facility] [address]avuebxagv8[address] [place] [id number]. Garima Pulliam Lymphocytes/100 WBC (Bld) 12.7 % Critically low 20.5-60.0 [facility] Comment on above: Performed By: #### C BC ####[facility] Zudjtsdwmv[address] [place] [id number]. Chapisrenu Pulliam MANUAL DIFF REQ NO Normal [facility] Comment on above: Performed By: #### C BC ####[facility] Jr[address]cccnt[address] [place], [place] [address]Dr. Garima Heraclio MCH (RBC) [Entitic mass] 30.0 pg Normal 25.9-34.0 [facility] Comment on above: Performed By: #### C BC ####[facility] [address]ztnw[address] [place], [place] [address]Dr. Garima Heraclio MCHC (RBC) [Mass/Vol] 32.6 g/dL Normal 29.9-35.2 [facility] Comment on above: Performed By: #### C BC ####[facility] [address] [place], [place] [address]Dr. Garima Heraclio MCV (RBC) [Entitic vol] 91.9 fL Normal 80.0-94.0 [facility] Comment on above: Performed By: #### C BC ####[facility] Y[address]kmhsjik[address] [place], [place] [address]Dr. Garima Pulliam MONO # 0.4 103/ul Normal 0.3-0.8 [facility] Comment on above: Performed By: #### C BC ####[facility] [address] [place], [place] [address]Dr. Chapisrenu Pulliam Monocytes/100 WBC (Bld) 4.8 % Normal 1.7-12.0 [facility] Comment on above: Performed By: #### C BC ####[facility] [address] [place], [place] [address]Dr. Garima Pulliam NEUT # 7.1 103/ul Critically high 1.4-6.5 [facility] Comment on above: Performed By: #### C BC ####[facility] [address]zxvther4[address] [place], [place] [address]Ye. Garima Pulliam Neutrophils/100 WBC (Bld) 80.4 % Critically high 43.0-75.0 [facility] Comment on above: Performed By: #### C BC ####[facility] [address]vmw[address]474 [place] [id number]. Garima Pulliam Platelet mean volume (Bld) [Entitic vol] 9.1 fL Critically low 9.5-13.5 [facility] Comment on above: Performed By: #### C BC ####[facility] [address] [place] [id number]. Garima Pulliam PLT 200 103/ul Normal 150-450 [facility] Comment on above: Performed By: #### C BC ####[facility] Fgaruwkiam[address] [place] [id number]. Garima Pulliam RBC 4.94 106/ul Normal 4.70-6.10 The [facility] Comment on above: Performed By: #### C BC ####[facility] Mhsgnjrzqx[address] [place] [id number]. Garima Pulliam WBC 8.9 103/ul Normal 4.0-11.0 The [facility] Comment on above: Performed By: #### C BC ####[facility] Wrdfavlayp[address] [place] [id number]. Garima Pulliam Covid-19 PCR (CVDTB)on SARS-CoV-2 (COVID-19) RNA MARIE+probe Ql (Unsp spec) Not detected Normal NOT DETECTED The [facility] [...] for this test is supported by the [place] of Health and Human Service's declaration that [...] Performed By: #### C VDTBH ####[facility] [address]arajq[address] [place] [address]Dr. Garima Pulliam LACTATE/LACTIC ACIDon 2021 Lactate [Moles/Vol] 1.7 mmol/L Normal 0.4-1.9 [facility] Comment on above: Performed By: #### L ACT ####[facility] Bzwtct[address] [place], [place] [address]Dr. Garima Pulliam PROF 14(COMP METB)on 022 Albumin [Mass/Vol] 3.8 g/dL Normal 3.4-5.0 [facility] Comment on above: Performed By: #### C MP, BNP, CMADM ####[facility] U[address]axptk[address] [place], [place] [address]Dr. Garima Pulliam Albumin/Globulin [Mass ratio] 1.5 {ratio} Normal [facility] Comment on above: Performed By: #### C MP, BNP, CMADM ####[facility] [address]brxsg[address] [place] [address]Dr. Garima Pulliam ALP [Catalytic activity/Vol] 62 U/L Normal 46-116 [facility] Comment on above: Performed By: #### C MP, BNP, CMADM ####[facility] Yln[address]ebox[address] [place] [address]Dr. Garima Pulliam ALT [Catalytic activity/Vol] 37 U/L Normal 16-63 [facility] Comment on above: Performed By: #### C MP, BNP, CMADM ####[facility] Bdsntvhpvk[address] [place] [address]Dr. Garima Pulliam Anion gap [Moles/Vol] 8.0 mmol/L Normal [facility] Comment on above: Performed By: #### C MP, BNP, CMADM ####[facility] Gyzflimiwx[address] [place] [address]Dr. Garima Pulliam AST [Catalytic activity/Vol] 20 U/L Normal 15-37 [facility] Comment on above: Performed By: #### C MP, BNP, CMADM ####[facility] Wrxabzgwmd[address] [place] [address]Dr. Garima Pulliam Bilirubin [Mass/Vol] 0.6 mg/dL Normal 0.2-1.0 The [facility] Comment on above: Performed By: #### C MP, BNP, CMADM ####[facility] Seiylqpzjl4[address] [place] [address]Dr. Garima Pulliam Calcium [Mass/Vol] 9.1 mg/dL Normal 8.5-10.1 [facility] Comment on above: Performed By: #### C MP, BNP, CMADM ####[facility] Uswwhhrf[address] [place], [place] [address]Dr. Garima Pulliam Chloride [Moles/Vol] 103 mmol/L Normal 98-107 The [facility] Comment on above: Performed By: #### C MP, BNP, CMADM ####[facility] Mnattsunvc[address] [place], [place] [address]Dr. Garima Pulliam CO2 [Moles/Vol] 31.8 mmol/L Normal 21.0-32.0 The [facility] Comment on above: Performed By: #### C MP, BNP, CMADM ####[facility] Slemwpfb[address] [place], [place] [address]Dr. Garima Pulliam Creatinine [Mass/Vol] 0.63 mg/dL Critically low 0.70-1.30 The [facility] Comment on above: Performed By: #### C MP, BNP, CMADM ####[facility] Uesidbwjqs[address] [place], [place] [address]Dr. Garima Pulliam EGFR-AF [place]AST [place] >60 Normal >=60 The [facility] Comment on above: Performed By: #### C MP, BNP, CMADM ####[facility] Qvearqwiex[address] [place], [place] [address]Dr. Garima Pulliam EGFR-NON AF [place] >60 Normal >=60 The [facility] Comment on above: Performed By: #### C MP, BNP, CMADM ####[facility] [address]xtiojjlxc[address] [place] [address]Dr. Garima Pulliam Globulin (S) [Mass/Vol] 2.6 g/dL Normal [facility] Comment on above: Performed By: #### C MP, BNP, CMADM ####[facility] Bwgjnipucx[address] [place] [address]Dr. Garima Pulliam Glucose [Mass/Vol] 103 mg/dL Normal 74-106 The [facility] Comment on above: Performed By: #### C MP, BNP, CMADM ####[facility] Ubtqliqeqe27[address] [place] [address]Dr. Garima Pulliam Potassium [Moles/Vol] 3.8 mmol/L Normal 3.5-5.1 The [facility] Comment on above: Performed By: #### C MP, BNP, CMADM ####[facility] Npimycmrzq[address] [place] [address]Dr. Garima Pulliam Protein [Mass/Vol] 6.4 g/dL Normal 6.4-8.2 The [facility] Comment on above: Performed By: #### C MP, BNP, CMADM ####[facility] Hskudwkddy[address] [place] [address]Dr. Garima Pulliam Sodium [Moles/Vol] 139 mmol/L Normal 136-145 The [facility] Comment on above: Performed By: #### C MP, BNP, CMADM ####[facility] Jaacrjtpmo[address] [place] [address]Dr. Garima Pulliam Urea nitrogen [Mass/Vol] 7.0 mg/dL Normal 7.0-18.0 The [facility] Comment on above: Performed By: #### C MP, BNP, CMADM ####[facility] Fnfxquosrq[address] [place] [address]Dr. Garima Pulliam Urea nitrogen/Creatinine [Mass ratio] 11.1 mg/mg Normal [facility] Comment on above: Performed By: #### C MP, BNP, CMADM ####[facility] Ekywtobqgi[address] [place] [address]Dr. Garima Pulliam PROTIMEon 09-29-2022 INR Coag (PPP) [Relative time] 1.14 {INR} Normal The [facility] Comment on above: Performed By: #### P T, PTT ####[facility] Evrmnhhjqi[address] [place], [place] [address]Dr. Garima Pulliam INR GUIDELINES SEE BELOW Normal The [facility] Comment on above: Result Comment: WESLEY RED INR: 2.0 - 3.0 CONDITIONS NOT LISTED BELOW 2.5 - 3.5 FOR PROSTHETIC HEART VALVE REPLACEMENT 2.5 - 3.5 RECURRENT THROMBOSIS Performed By: #### P T, PTT ####[facility] Fpmngjzlvm[address] [place], [place] [address]Dr. Garima Pulliam PT Coag (PPP) [Time] 12.2 s Critically high 9.0-11.6 The [facility] Comment on above: Performed By: #### P T, PTT ####[facility] Qhnqmcclfm[address] [place], [place] [address]Dr. Garima Pulliam PTTon 09-29-2022 aPTT Coag (Bld) [Time] 29.3 s Normal 22.3-36.2 The [facility] Comment on above: Performed By: #### P T, PTT ####[facility] Dcrgtokaye[address] [place], [place] [address]Dr. Garima Pulliam XR CHEST 1 Von 09-29-2022 XR CHEST 1 V Normal The [facility] CBC AUTO DIFFon 09-26-2022 BASO # 0.0 103/ul Normal 0.0-0.1 The [facility] Comment on above: Performed By: #### C BC ####[facility] Swkomyvtro[address] [place], [place] [address]Dr. Garima Pulliam Basophils/100 WBC (Bld) 0.2 % Normal 0.2-2.0 The [facility] Comment on above: Performed By: #### C BC ####[facility] Wkjacwyolj[address] [place], [place] [address]Dr. Garima Pulliam EO # 0.1 103/ul Normal 0.0-0.7 [facility] Comment on above: Performed By: #### C BC ####[facility] Xzjgmkngjy[address] [place], [place] [address]Dr. Garima Pulliam Eosinophils/100 WBC (Bld) 1.0 % Normal 0.9-7.0 [facility] Comment on above: Performed By: #### C BC ####[facility] Uhhlbjjizf[address] [place], [place] [address]Dr. Garima Pulliam Erythrocyte distribution width (RBC) [Ratio] 13.4 % Normal 11.0-15.0 [facility] Comment on above: Performed By: #### C BC ####[facility] Ccwlixetjq[address] [place], [place] [address]Dr. Garima Pulliam Hematocrit (Bld) [Volume fraction] 46.3 % Normal 42.0-54.0 [facility] Comment on above: Performed By: #### C BC ####[facility] Edxpfzrqsh[address] [place], [place] [address]Dr. Garima Pulliam Hemoglobin (Bld) [Mass/Vol] 15.3 g/dL Normal 14.0-18.0 The [facility] Comment on above: Performed By: #### C BC ####[facility] Pdwneuhknt[address] [place], [place] [address]Dr. Garima Pulliam IG # 0.05 10e3/ul Critically high 0.00-0.03 [facility] Comment on above: Performed By: #### C BC ####[facility] Azyjubxzcp[address] [place], [place] [address]Dr. Garima Pulliam IG % 0.4 % Normal 0.0-0.5 The [facility] Comment on above: Performed By: #### C BC ####[facility] Cqnuixwbzi[address] [place], [place] [address]Dr. Garima Pulliam LYMPH # 1.7 103/ul Normal 1.2-3.8 The [facility] Comment on above: Performed By: #### C BC ####[facility] Ulatrqijle395[address] [place], [place] [address]Dr. Garima Pulliam Lymphocytes/100 WBC (Bld) 12.7 % Critically low 20.5-60.0 The [facility] Comment on above: Performed By: #### C BC ####[facility] [address]te[address] [place] [address]DrAdalberto Pulliam MANUAL DIFF REQ NO Normal The [facility] Comment on above: Performed By: #### C BC ####[facility] Kwoeiywuue[address] [place] [address]Dr. Garima Pulliam MCH (RBC) [Entitic mass] 30.1 pg Normal 25.9-34.0 The [facility] Comment on above: Performed By: #### C BC ####[facility] Wxmprxisat[address] [place], [place] [address]Dr. Garima Pulliam MCHC (RBC) [Mass/Vol] 33.0 g/dL Normal 29.9-35.2 The [facility] Comment on above: Performed By: #### C BC ####[facility] Wipswpmpda[address] [place], [place] [address]DrAdalberto Pulliam MCV (RBC) [Entitic vol] 91.1 fL Normal 80.0-94.0 The [facility] Comment on above: Performed By: #### C BC ####[facility] Rvctyaypxd[address] [place], [place] [address]DrAdalberto Pulliam MONO # 0.9 103/ul Critically high 0.3-0.8 The [facility] Comment on above: Performed By: #### C BC ####[facility] Vnvjtcolfn[address] [place], [place] [address]DrAdalberto Pulliam Monocytes/100 WBC (Bld) 7.0 % Normal 1.7-12.0 The [facility] Comment on above: Performed By: #### C BC ####[facility] Acvknofzgc[address] [place], [place] [address]DrAdalberto Pulliam NEUT # 10.4 103/ul Critically high 1.4-6.5 The [facility] Comment on above: Performed By: #### C BC ####[facility] Njlzovffqx[address] [place], [place] [address]DrAdalberto Pulliam Neutrophils/100 WBC (Bld) 78.7 % Critically high 43.0-75.0 [facility] Comment on above: Performed By: #### C BC ####[facility] Vnjytwbfsb[address] [place] [address]Dr. Garima Pulliam Platelet mean volume (Bld) [Entitic vol] 8.9 fL Critically low 9.5-13.5 The [facility] Comment on above: Performed By: #### C BC ####[facility] Vvtbisdhze[address] [place] [address]Dr. Garima Pulliam PLT 195 103/ul Normal 150-450 The [facility] Comment on above: Performed By: #### C BC ####[facility] Bdgodxiluu[address] [place], [place] [address]Dr. Garima Pulliam RBC 5.08 106/ul Normal 4.70-6.10 The [facility] Comment on above: Performed By: #### C BC ####[facility] Qvhwdetlhb[address] [place], [place] [address]Dr. Garima Pulliam WBC 13.2 103/ul Critically high 4.0-11.0 The [facility] Comment on above: Performed By: #### C BC ####[facility] Uzeimxdoyg[address] [place], [place] [address]Dr. Garima Pulliam PROF 14(COMP METB)on 022 Albumin [Mass/Vol] 3.5 g/dL Normal 3.4-5.0 [facility] Comment on above: Performed By: #### C DAVID HSTROPN ####[facility] [address]bez[address]rmoz[address] [place] [address]Dr. Garima Pulliam Albumin/Globulin [Mass ratio] 1.2 {ratio} Normal [facility] Comment on above: Performed By: #### C RAFAT HERNANDEZTROPN ####[facility] Upynmtpeax[address] [place] [address]Dr. Garima Pulliam ALP [Catalytic activity/Vol] 71 U/L Normal 46-116 The [facility] Comment on above: Performed By: #### C DAVID HSTROPN ####[facility] Yesvkpbgcx3[address] [place] [address]Dr. Garima Pulliam ALT [Catalytic activity/Vol] 37 U/L Normal 16-63 The [facility] Comment on above: Performed By: #### C DAVID, HSTROPN ####[facility] Roscnkazes[address] [place] [address]Dr. Garima Pulliam Anion gap [Moles/Vol] 4.8 mmol/L Normal [facility] Comment on above: Performed By: #### C DAVID, HSTROPN ####[facility] Rpzwtuetea[address] [place], [place] [address]Dr. Garima Pulliam AST [Catalytic activity/Vol] 21 U/L Normal 15-37 The [facility] Comment on above: Performed By: #### C DAVID, HSTROPN ####[facility] Avavmatlzq[address] [place], [place] [address]Dr. Garima Pulliam Bilirubin [Mass/Vol] 0.3 mg/dL Normal 0.2-1.0 The [facility] Comment on above: Performed By: #### C DAVID, HSTROPN ####[facility] Dryiemrgsd[address] [place] [address]Dr. Garima Pulliam Calcium [Mass/Vol] 8.9 mg/dL Normal 8.5-10.1 [facility] Comment on above: Performed By: #### C DAVID, HSTROPN ####[facility] Eobpzdpcey[address] [place] [address]Dr. Garima Pulliam Chloride [Moles/Vol] 106 mmol/L Normal 98-107 The [facility] Comment on above: Performed By: #### C DAVID, HSTROPN ####[facility] Bvfnjntxpx23[address] [place] [address]Dr. Garima Pulliam CO2 [Moles/Vol] 29.8 mmol/L Normal 21.0-32.0 The [facility] Comment on above: Performed By: #### C DAVID, HSTROPN ####[facility] Nkvyomxjbb60[address] [place] [address]Dr. Garima Pulliam Creatinine [Mass/Vol] 0.68 mg/dL Critically low 0.70-1.30 The [facility] Comment on above: Performed By: #### C MP, HSTROPN ####[facility] [address]hzityw[address] [place] [address]Dr. Garima Pulliam EGFR-AF [place] >60 Normal >=60 [place] Comment on above: Performed By: #### C MP, HSTROPN ####[facility] Dyeibeuvnb[address] [place] [address]Dr. Chapislan Pulliam EGFR-NON AF [place] >60 Normal >=60 [facility] Comment on above: Performed By: #### C MP, HSTROPN ####[facility] Rhjycoyikk3[address] [place] [address]Dr. Garima Pulliam Globulin (S) [Mass/Vol] 2.8 g/dL Normal [facility] Comment on above: Performed By: #### C MP, HSTROPN ####[facility] Rutzyxtobh[address] [place] [address]Dr. Garima Pulliam Glucose [Mass/Vol] 133 mg/dL Critically high 74-106 [facility] Comment on above: Performed By: #### C MP, HSTROPN ####[facility] Gtmlkjeqfe4482 [place] [address]Dr. Chapisrenu Pulliam Potassium [Moles/Vol] 3.6 mmol/L Normal 3.5-5.1 [facility] Comment on above: Performed By: #### C MP, HSTROPN ####[facility] Rqdkikxqjz39[address] [place] [address]Dr. Chapisrenu Pulliam Protein [Mass/Vol] 6.3 g/dL Critically low 6.4-8.2 [facility] Comment on above: Performed By: #### C MP, HSTROPN ####[facility] Cvalysispe[address] [place], [place] [address]Dr. Chapisrenu Pulliam Sodium [Moles/Vol] 137 mmol/L Normal 136-145 [facility] Comment on above: Performed By: #### C MP, HSTROPN ####[facility] Ejsggzmrnz[address] [place], [place] [address]Dr. Garima Pulliam Urea nitrogen [Mass/Vol] 15.0 mg/dL Normal 7.0-18.0 The [facility] Comment on above: Performed By: #### C DAVID HSTROPN ####[facility] Sugdnbrwhi[address] [place] [address]Dr. Chapisrenu Pulliam Urea nitrogen/Creatinine [Mass ratio] 22.1 mg/mg Normal The [facility] Comment on above: Performed By: #### C DAVID HSTROPN ####[facility] Dnxvbxufol[address] [place] [address]Dr. Garima Heraclio TROPONIN, HIGH SENSITIVITYon 09-26-2022 HSTROP 12.8 pg/mL Normal 4.0-76.1 The [facility] Comment on above: Result Comment: CUT- OFF POINTS HAVE BEEN ESTABLISHED BASED ON THE FOURTH UNIVERSAL DEFINITIONS OF MYOCARDIALINFARCTION. THE UPPER REFERENCE LIMIT (URL) OF TROPONIN, DEFINED THE 99TH PERCENTILE OFcTnI DISTRIBUTION IN A REFERENCE POPULATION, HAS BEEN CONFIRMED THE DECISION THRESHOLDFOR [place] DIAGNOSIS. Performed By: #### C DAVID HSTROPN ####[facility] Frrnojucwt[address] [place] [address]Dr. Chapisrenu Pulliam XR CHEST 1 Von 09-26-2022 XR CHEST 1 V Normal The [facility] XR CHEST 1 Von 09-16-2022 XR CHEST 1 V Normal The [facility] CBC AUTO DIFFon 09-15-2022 BASO # 0.0 103/ul Normal 0.0-0.1 The [facility] Comment on above: Performed By: #### C BC ####[facility] Agxbyzyytx[address] [place] [address]Dr. Garima Heraclio Basophils/100 WBC (Bld) 0.1 % Critically low 0.2-2.0 The [facility] Comment on above: Performed By: #### C BC ####[facility] Ngfpyayusf[address] [place] [address]Dr. Garima Pulliam EO # 0.0 103/ul Normal 0.0-0.7 The [facility] Comment on above: Performed By: #### C BC ####[facility] Eglfpahmuc[address]14 [place] [address]Dr. Garima Pulliam Eosinophils/100 WBC (Bld) 0.1 % Critically low 0.9-7.0 The [facility] Comment on above: Performed By: #### C BC ####[facility] Kewvfqavoc[address] [place] [address]Dr. Garima Pulliam Erythrocyte distribution width (RBC) [Ratio] 14.1 % Normal 11.0-15.0 The [facility] Comment on above: Performed By: #### C BC ####[facility] Enthmzzmcl[address] [place], [place] [address]Dr. Garima Pulliam Hematocrit (Bld) [Volume fraction] 46.1 % Normal 42.0-54.0 The [facility] Comment on above: Performed By: #### C BC ####[facility] Nbtjvhquoa[address] [place], [place] [address]Dr. Garima Pulliam Hemoglobin (Bld) [Mass/Vol] 15.0 g/dL Normal 14.0-18.0 The [facility] Comment on above: Performed By: #### C BC ####[facility] Epttezaujh[address] [place], [place] [address]Dr. Garima Pulliam IG # 0.03 10e3/ul Normal 0.00-0.03 The [facility] Comment on above: Performed By: #### C BC ####[facility] Noigmrspmv[address] [place], [place] [address]Dr. Garima Pulliam IG % 0.3 % Normal 0.0-0.5 The [facility] Comment on above: Performed By: #### C BC ####[facility] Tcatiymdpi[address] [place], [place] [address]Dr. Garima Pulliam LYMPH # 0.6 103/ul Critically low 1.2-3.8 The [facility] Comment on above: Performed By: #### C BC ####[facility] Qehoafcfou[address] [place], [place] [address]Dr. Garima Pulliam Lymphocytes/100 WBC (Bld) 5.8 % Critically low 20.5-60.0 The [facility] Comment on above: Performed By: #### C BC ####[facility] T[address]vnhdmv[address] [place] [id number]. Garima Pulliam MANUAL DIFF REQ NO Normal [facility] Comment on above: Performed By: #### C BC ####[facility] Nnuzjpsgxr0[address] [place] [id number]. Garima Pulliam MCH (RBC) [Entitic mass] 30.2 pg Normal 25.9-34.0 The [facility] Comment on above: Performed By: #### C BC ####[facility] Vafzbmcgfd[address] [place] [address]Dr. Garima Pulliam MCHC (RBC) [Mass/Vol] 32.5 g/dL Normal 29.9-35.2 The [facility] Comment on above: Performed By: #### C BC ####[facility] Wsaojulvki[address] [place] [address]Dr. Garima Pulliam MCV (RBC) [Entitic vol] 92.8 fL Normal 80.0-94.0 The [facility] Comment on above: Performed By: #### C BC ####[facility] [address]ecnnlnit[address] [place] [address]Dr. Garima Heraclio MONO # 0.3 103/ul Normal 0.3-0.8 The [facility] Comment on above: Performed By: #### C BC ####[facility] Uyygkmehpw[address] [place] [id number]. Garima Heraclio Monocytes/100 WBC (Bld) 3.2 % Normal 1.7-12.0 The [facility] Comment on above: Performed By: #### C BC ####[facility] Ilcaqoqvkt[address] [place] [id number]. Garima Pulliam NEUT # 9.8 103/ul Critically high 1.4-6.5 [facility] Comment on above: Performed By: #### C BC ####[facility] Enfjfhjqic[address]36 [place] [id number]. Garima Pulliam Neutrophils/100 WBC (Bld) 90.5 % Critically high 43.0-75.0 The [facility] Comment on above: Performed By: #### C BC ####[facility] Gryqzsdnjw15[address] [place] [id number]. Garima Pulliam Platelet mean volume (Bld) [Entitic vol] 9.4 fL Critically low 9.5-13.5 The [facility] Comment on above: Performed By: #### C BC ####[facility] Kkkrlqpqlp32[address] [place] [id number]. Garima Pulliam PLT 208 103/ul Normal 150-450 [facility] Comment on above: Performed By: #### C BC ####[facility] Eioxuyryra[address] [place] [address]Dr. Garima Pulliam RBC 4.97 106/ul Normal 4.70-6.10 The [facility] Comment on above: Performed By: #### C BC ####[facility] Spxoncrlyg[address] [place] [address]Dr. Garima Pulliam WBC 10.8 103/ul Normal 4.0-11.0 The [facility] Comment on above: Performed By: #### C BC ####[facility] [address]urjtemdd[address] [place] [address]Dr. Garima Pulliam PROF 14(COMP METB)on 022 Albumin [Mass/Vol] 4.0 g/dL Normal 3.4-5.0 [facility] Comment on above: Performed By: #### C MP ####[facility] [address] [place] [address]Dr. Garima Pulliam Albumin/Globulin [Mass ratio] 1.5 {ratio} Normal [facility] Comment on above: Performed By: #### C MP ####[facility] [address] [place] [address]Dr. Garima Pulliam ALP [Catalytic activity/Vol] 73 U/L Normal 46-116 [facility] Comment on above: Performed By: #### C MP ####[facility] Xispspou[address] [place] [address]Dr. Garima Pulliam ALT [Catalytic activity/Vol] 42 U/L Normal 16-63 [facility] Comment on above: Performed By: #### C MP ####[facility] Rtjrrluk[address] [place] [address]Dr. Garima Pulliam Anion gap [Moles/Vol] 9.1 mmol/L Normal [facility] Comment on above: Performed By: #### C MP ####[facility] Qowbqfu[address] [place], [place] [address]Dr. Garima Pulliam AST [Catalytic activity/Vol] 28 U/L Normal 15-37 [facility] Comment on above: Performed By: #### C MP ####[facility] Lxeseoncdr[address] [place], [place] [address]Dr. Garima Pulliam Bilirubin [Mass/Vol] 0.6 mg/dL Normal 0.2-1.0 The [facility] Comment on above: Performed By: #### C MP ####[facility] Evaldqjrhj145[address] [place], [place] [address]Dr. Garima Pulliam Calcium [Mass/Vol] 8.6 mg/dL Normal 8.5-10.1 The [facility] Comment on above: Performed By: #### C MP ####[facility] Xselnxcpvl[address] [place], [place] [address]Dr. Garima Pulliam Chloride [Moles/Vol] 105 mmol/L Normal 98-107 The [facility] Comment on above: Performed By: #### C MP ####[facility] Qyyntmhhlb[address] [place], [place] [address]Dr. Garima Pulliam CO2 [Moles/Vol] 28.5 mmol/L Normal 21.0-32.0 The [facility] Comment on above: Performed By: #### C MP ####[facility] Yizeajjqas[address] [place], [place] [address]Dr. Garima Heraclio Creatinine [Mass/Vol] 0.78 mg/dL Normal 0.70-1.30 The [facility] Comment on above: Performed By: #### C MP ####[facility] Qlzprpypti[address] [place], [place] [address]Dr. Chapisrenu Heraclio EGFR-AF [place] >60 Normal >=60 The [facility] Comment on above: Performed By: #### C MP ####[facility] Zbffrbxezt[address] [place], [place] [address]Dr. Garima Pulliam EGFR-NON AF [place] >60 Normal >=60 [facility] Comment on above: Performed By: #### C MP ####[facility] M[address]jmpsw[address] [place] [address]Dr. Garima Pulliam Globulin (S) [Mass/Vol] 2.7 g/dL Normal [facility] Comment on above: Performed By: #### C MP ####[facility] Gedjljwtrl[address] [place] [address]Dr. Garima Pulliam Glucose [Mass/Vol] 220 mg/dL Critically high 74-106 [facility] Comment on above: Performed By: #### C MP ####[facility] Bakkzyigcv[address] [place] [address]Dr. Garima Pulliam Potassium [Moles/Vol] 3.6 mmol/L Normal 3.5-5.1 [facility] Comment on above: Performed By: #### C MP ####[facility] Ciobqcvmyj[address] [place], [place] [address]Dr. Garima Pulliam Protein [Mass/Vol] 6.7 g/dL Normal 6.4-8.2 [facility] Comment on above: Performed By: #### C MP ####[facility] Muxegekqks[address] [place], [place] [address]Dr. Garima Pulliam Sodium [Moles/Vol] 139 mmol/L Normal 136-145 [facility] Comment on above: Performed By: #### C MP ####[facility] Ymrrmfkdit[address] [place], [place] [address]Dr. Garima Pulliam Urea nitrogen [Mass/Vol] 11.0 mg/dL Normal 7.0-18.0 [facility] Comment on above: Performed By: #### C MP ####[facility] Ffsoekkwhh[address] [place], [place] [address]Dr. Garima Pulliam Urea nitrogen/Creatinine [Mass ratio] 14.1 mg/mg Normal [facility] Comment on above: Performed By: #### C MP ####[facility] Hpmjskqnur[address] [place], [place] [address]Dr. Garima Pulliam CARDIAC NASH 3-6on 2 CK [Catalytic activity/Vol] 240 U/L Normal 39-308 [facility] Comment on above: Performed By: #### C MREP ####[facility] T[address]aussyc[address] [place] [address]Dr. Garima Pulliam CK.MB [Mass/Vol] 10.38 ng/mL Critically high <=3.60 [facility] Comment on above: Performed By: #### C MREP ####[facility] Dqmzkvzwmn[address] [place] [address]Dr. Garima Pulliam HSTROP 18.5 pg/mL Normal 4.0-76.1 [facility] Comment on above: Result Comment: CUT- OFF POINTS HAVE BEEN ESTABLISHED BASED ON THE FOURTH UNIVERSAL DEFINITIONS OF MYOCARDIALINFARCTION. THE UPPER REFERENCE LIMIT (URL) OF TROPONIN, DEFINED THE 99TH PERCENTILE OFcTnI DISTRIBUTION IN A REFERENCE POPULATION, HAS BEEN CONFIRMED THE DECISION THRESHOLDFOR [place] DIAGNOSIS. Performed By: #### C MREP ####[facility] Vsus[address] [place] [address]Dr. Garima Pulliam CK [Catalytic activity/Vol] 257 U/L Normal 39-308 [facility] Comment on above: Performed By: #### C MREP ####[facility] Phgihhmvub[address] [place], [place] [address]Dr. Garima Pulliam CK.MB [Mass/Vol] 9.89 ng/mL Critically high <=3.60 [facility] Comment on above: Performed By: #### C MREP ####[facility] Kytglhsfvl[address] [place], [place] [address]Dr. Garima Pulliam HSTROP 16.9 pg/mL Normal 4.0-76.1 [facility] Comment on above: Result Comment: CUT- OFF POINTS HAVE BEEN ESTABLISHED BASED ON THE FOURTH UNIVERSAL DEFINITIONS OF MYOCARDIALINFARCTION. THE UPPER REFERENCE LIMIT (URL) OF TROPONIN, DEFINED THE 99TH PERCENTILE OFcTnI DISTRIBUTION IN A REFERENCE POPULATION, HAS BEEN CONFIRMED THE DECISION THRESHOLDFOR [place] DIAGNOSIS. Performed By: #### C MREP ####[facility] L[address]fx[address]jla[address] [place] [address]Dr. Garima Heraclio CBC AUTO DIFFon 10-22-2022 BASO # 0.0 103/ul Normal 0.0-0.1 The [facility] Comment on above: Performed By: #### C BC ####[facility] [address] [place] [id number]. Garima Pulliam Basophils/100 WBC (Bld) 0.1 % Critically low 0.2-2.0 The [facility] Comment on above: Performed By: #### C BC ####[facility] K[address]ui[address]ju[address] [place] [address]Dr. Garima Pulliam EO # 0.0 103/ul Normal 0.0-0.7 [facility] Comment on above: Performed By: #### C BC ####[facility] Bgnrflzyeq[address] [place], [place] [address]Dr. Chapisrenu Heraclio Eosinophils/100 WBC (Bld) 0.0 % Critically low 0.9-7.0 The [facility] Comment on above: Performed By: #### C BC ####[facility] Pyqhjthxje[address] [place], [place] [address]Dr. Garima Pulliam Erythrocyte distribution width (RBC) [Ratio] 13.6 % Normal 11.0-15.0 The [facility] Comment on above: Performed By: #### C BC ####[facility] Bpjfmhpwqr[address] [place], [place] [address]Dr. Garima Pulliam Hematocrit (Bld) [Volume fraction] 48.2 % Normal 42.0-54.0 The [facility] Comment on above: Performed By: #### C BC ####[facility] Apxnrghqkp[address] [place], [place] [address]Dr. Garima Pulliam Hemoglobin (Bld) [Mass/Vol] 16.0 g/dL Normal 14.0-18.0 The [facility] Comment on above: Performed By: #### C BC ####[facility] Txbtixjvfy[address] [place], [place] [address]Dr. Chapisrenu Heraclio IG # 0.02 10e3/ul Normal 0.00-0.03 The [facility] Comment on above: Performed By: #### C BC ####[facility] [address]owfgp[address] [place] [id number]. Garima Pulliam IG % 0.3 % Normal 0.0-0.5 The [facility] Comment on above: Performed By: #### C BC ####[facility] Y[address]pf[address] [place] [address]Dr. Garima Heraclio LYMPH # 0.5 103/ul Critically low 1.2-3.8 The [facility] Comment on above: Performed By: #### C BC ####[facility] Ywr[address]iichf[address] [place] [address]Dr. Garima Heraclio Lymphocytes/100 WBC (Bld) 7.7 % Critically low 20.5-60.0 The [facility] Comment on above: Performed By: #### C BC ####[facility] Zayepoajxe[address] [place], [place] [address]Dr. Chapisrenu Pulliam MANUAL DIFF REQ NO Normal The [facility] Comment on above: Performed By: #### C BC ####[facility] Vbeyfgldng[address] [place], [place] [address]Dr. Garima Heraclio MCH (RBC) [Entitic mass] 30.6 pg Normal 25.9-34.0 The [facility] Comment on above: Performed By: #### C BC ####[facility] Mkghoglybz[address] [place], [place] [address]Dr. Garima Pulliam MCHC (RBC) [Mass/Vol] 33.2 g/dL Normal 29.9-35.2 The [facility] Comment on above: Performed By: #### C BC ####[facility] Dbntdwohvx[address] [place], [place] [address]Dr. Garima Heraclio MCV (RBC) [Entitic vol] 92.2 fL Normal 80.0-94.0 The [facility] Comment on above: Performed By: #### C BC ####[facility] Zxmulzqwal[address] [place], [place] [address]Dr. Garima Pulliam MONO # 0.0 103/ul Critically low 0.3-0.8 The [facility] Comment on above: Performed By: #### C BC ####[facility] [address]bz[address]oxkix[address] [place] [id number]. Garima Pulliam Monocytes/100 WBC (Bld) 0.4 % Critically low 1.7-12.0 The [facility] Comment on above: Performed By: #### C BC ####[facility] N[address]jvsrxj5[address] [place] [address]Dr. Garima Pulliam NEUT # 6.2 103/ul Normal 1.4-6.5 The [facility] Comment on above: Performed By: #### C BC ####[facility] Vsuqhvcyoc[address] [place] [address]Dr. Garima Pulliam Neutrophils/100 WBC (Bld) 91.5 % Critically high 43.0-75.0 The [facility] Comment on above: Performed By: #### C BC ####[facility] Ydpcxytkft4[address] [place] [address]Dr. Garima Pulliam Platelet mean volume (Bld) [Entitic vol] 8.7 fL Critically low 9.5-13.5 The [facility] Comment on above: Performed By: #### C BC ####[facility] Vypcqnhnsq[address] [place] [address]Dr. Garima Pulliam PLT 179 103/ul Normal 150-450 [facility] Comment on above: Performed By: #### C BC ####[facility] Ydejubctvt78[address] [place] [address]Dr. Garima Pulliam RBC 5.23 106/ul Normal 4.70-6.10 The [facility] Comment on above: Performed By: #### C BC ####[facility] Wbrneqkoel[address] [place] [address]Dr. Garima Pulliam WBC 6.7 103/ul Normal 4.0-11.0 The [facility] Comment on above: Performed By: #### C BC ####[facility] Ggqb[address]rlnz[address] [place] [address]Dr. Garima Pulliam PROF CHEM 8 (BAS METB)on Anion gap [Moles/Vol] 12.1 mmol/L Normal [facility] Comment on above: Performed By: #### B MP ####[facility] Xct[address]awtdc[address] [place] [id number]. Garima Pulliam Calcium [Mass/Vol] 8.7 mg/dL Normal 8.5-10.1 The [facility] Comment on above: Performed By: #### B MP ####[facility] Uullwbuvgm7[address] [place] [address]Dr. Garima Pulliam Chloride [Moles/Vol] 105 mmol/L Normal 98-107 [facility] Comment on above: Performed By: #### B MP ####[facility] Mmlkmdmgmu4[address] [place] [address]Dr. Garima Pulliam CO2 [Moles/Vol] 25.5 mmol/L Normal 21.0-32.0 The [facility] Comment on above: Performed By: #### B MP ####[facility] Shsrjwnfaz[address] [place] [address]Dr. Garima Pulliam Creatinine [Mass/Vol] 0.63 mg/dL Critically low 0.70-1.30 [facility] Comment on above: Performed By: #### B MP ####[facility] [address]ropowiff[address] [place] [address]Dr. Garima Pulliam EGFR-AF [place] >60 Normal >=60 The [facility] Comment on above: Performed By: #### B MP ####[facility] Ckypmziaei[address] [place] [address]Dr. Garima Pulliam EGFR-NON AF [place] >60 Normal >=60 [facility] Comment on above: Performed By: #### B MP ####[facility] Iajlraxboo[address] [place] [address]Dr. Garima Pulliam Glucose [Mass/Vol] 162 mg/dL Critically high 74-106 [facility] Comment on above: Performed By: #### B MP ####[facility] Gjognahfqt[address] [place], [place] [address]Dr. Garima Pulliam Potassium [Moles/Vol] 3.6 mmol/L Normal 3.5-5.1 The [facility] Comment on above: Performed By: #### B MP ####[facility] Dmqvokxeqn[address] [place], [place] [address]Dr. Garima Pulliam Sodium [Moles/Vol] 139 mmol/L Normal 136-145 [facility] Comment on above: Performed By: #### B DAVID ####[facility] Ewrltegird[address] [place] [address]Dr. Garima Pulliam Urea nitrogen [Mass/Vol] 9.0 mg/dL Normal 7.0-18.0 [facility] Comment on above: Performed By: #### B DAVID ####[facility] Flgexujplg[address] [place] [address]Dr. Garima Pulliam Urea nitrogen/Creatinine [Mass ratio] 14.3 mg/mg Normal [facility] Comment on above: Performed By: #### B DAVID ####[facility] Xkbtqstvoi[address] [place] [address]Dr. Chapisrenu Pulliam CARDIAC NASH ADMITon 09-12- 022 CK [Catalytic activity/Vol] 304 U/L Normal 39-308 [facility] Comment on above: Performed By: #### B NANCY HERNANDEZ ####[facility] [address]jvjlbuvjz[address] [place] [address]Dr. Garima Pulliam CK.MB [Mass/Vol] 11.81 ng/mL Critically high <=3.60 [facility] Comment on above: Performed By: #### B NANCY HERNANDEZ ####[facility] Ebuzvm[address]za[address] [place] [address]Dr. Garima Heraclio HSTROP 13.3 pg/mL Normal 4.0-76.1 [facility] Comment on above: Result Comment: CUT- OFF POINTS HAVE BEEN ESTABLISHED BASED ON THE FOURTH UNIVERSAL DEFINITIONS OF MYOCARDIALINFARCTION. THE UPPER REFERENCE LIMIT (URL) OF TROPONIN, DEFINED THE 99TH PERCENTILE OFcTnI DISTRIBUTION IN A REFERENCE POPULATION, HAS BEEN CONFIRMED THE DECISION THRESHOLDFOR [place] DIAGNOSIS. Performed By: #### B NANCY HERNANDEZ ####[facility] Bnlmzujxck[address] [place] [address]Dr. Garima Pulliam DORIS 133 ng/mL Critically high 16-96 [facility] Comment on above: Performed By: #### B NANCY HERNANDEZ ####[facility] Llbfuneljz[address] [place] [address]Dr. Garima Pulliam CBC AUTO DIFFon 09-12-2022 BASO # 0.0 103/ul Normal 0.0-0.1 The [facility] Comment on above: Performed By: #### C BC ####[facility] Y[address]vfss[address] [place], [place] [address]Dr. Garima Heraclio Basophils/100 WBC (Bld) 0.2 % Normal 0.2-2.0 The [facility] Comment on above: Performed By: #### C BC ####[facility] Lwebgqandv[address] [place], [place] [address]Dr. Garima Heraclio EO # 0.2 103/ul Normal 0.0-0.7 The [facility] Comment on above: Performed By: #### C BC ####[facility] Mfkvukafbw[address] [place], [place] [address]Dr. Chapisrenu Pulliam Eosinophils/100 WBC (Bld) 1.3 % Normal 0.9-7.0 The [facility] Comment on above: Performed By: #### C BC ####[facility] Ahzjlvmvmg[address] [place], [place] [address]Dr. Garima Pulliam Erythrocyte distribution width (RBC) [Ratio] 13.7 % Normal 11.0-15.0 [facility] Comment on above: Performed By: #### C BC ####[facility] [address]auhuomks[address] [place], [place] [address]Dr. Garima Pulliam Hematocrit (Bld) [Volume fraction] 46.4 % Normal 42.0-54.0 [facility] Comment on above: Performed By: #### C BC ####[facility] Kgsitayqny[address] [place], [place] [address]Dr. Garima Pulliam Hemoglobin (Bld) [Mass/Vol] 15.7 g/dL Normal 14.0-18.0 [facility] Comment on above: Performed By: #### C BC ####[facility] Fjt[address]wt[address] [place], [place] [address]Dr. Garima Pulliam IG # 0.04 10e3/ul Critically high 0.00-0.03 [facility] Comment on above: Performed By: #### C BC ####[facility] Mkatgrvubc[address] [place] [address]Dr. Garima Pulliam IG % 0.3 % Normal 0.0-0.5 [facility] Comment on above: Performed By: #### C BC ####[facility] Ogdvpaqaeh[address] [place] [address]Dr. Garima Pulliam LYMPH # 1.7 103/ul Normal 1.2-3.8 [facility] Comment on above: Performed By: #### C BC ####[facility] Mxsoiadwwa69[address] [place] [address]Dr. Garima Pulliam Lymphocytes/100 WBC (Bld) 11.5 % Critically low 20.5-60.0 [facility] Comment on above: Performed By: #### C BC ####[facility] Ftjhbxjdmi1775 [place] [address]Dr. Garima Pulliam MANUAL DIFF REQ NO Normal [facility] Comment on above: Performed By: #### C BC ####[facility] Ibjzslknis9727 [place] [address]Dr. Garima Pulliam MCH (RBC) [Entitic mass] 31.0 pg Normal 25.9-34.0 [facility] Comment on above: Performed By: #### C BC ####[facility] Hsohbukhcu90[address] [place] [address]Dr. Garima Pulliam MCHC (RBC) [Mass/Vol] 33.8 g/dL Normal 29.9-35.2 [facility] Comment on above: Performed By: #### C BC ####[facility] Brivtbcnor[address] [place] [address]Dr. Garima Pulliam MCV (RBC) [Entitic vol] 91.7 fL Normal 80.0-94.0 [facility] Comment on above: Performed By: #### C BC ####[facility] Sqpnzaufxa8[address] [place] [address]Dr. Garima Heraclio MONO # 0.8 103/ul Normal 0.3-0.8 [facility] Comment on above: Performed By: #### C BC ####[facility] Nqkbguahmk5944 [place] [address]Dr. Garima Pulliam Monocytes/100 WBC (Bld) 5.2 % Normal 1.7-12.0 [facility] Comment on above: Performed By: #### C BC ####[facility] Wxlcrhtnrz9662 [place] [address]Dr. Garima Pulliam NEUT # 11.7 103/ul Critically high 1.4-6.5 The [facility] Comment on above: Performed By: #### C BC ####[facility] Nhklrtmisa9[address] [place] [address]Dr. Garima Pulliam Neutrophils/100 WBC (Bld) 81.5 % Critically high 43.0-75.0 [facility] Comment on above: Performed By: #### C BC ####[facility] Kdmopmqsva[address] [place] [address]Dr. Garima Pulliam Platelet mean volume (Bld) [Entitic vol] 8.6 fL Critically low 9.5-13.5 The [facility] Comment on above: Performed By: #### C BC ####[facility] Yviiopcwir9936 [place] [id number]. Garima Pulliam PLT 191 103/ul Normal 150-450 [facility] Comment on above: Performed By: #### C BC ####[facility] [address]ub[address]ft[address] [place], [place] [address]Dr. Garima Pulliam RBC 5.06 106/ul Normal 4.70-6.10 The [facility] Comment on above: Performed By: #### C BC ####[facility] [address]wmbxc[address] [place], [place] [address]Dr. Garima Pulliam WBC 14.4 103/ul Critically high 4.0-11.0 [facility] Comment on above: Performed By: #### C BC ####[facility] Z[address]ayso[address] [place], [place] [address]Dr. Garima Pulliam [facility]24 SARS-CoV-2 (COVID-19) RNA MARIE+probe Ql (Unsp spec) Not detected Normal NOT DETECTED [facility] Comment on above: Result Comment: When [...] for this test is supported by the [place] of Health and Human Service's declaration that [...] Performed By: #### C VDTBH ####[facility] Tvyoygdkzz[address] [place], [place] [address]Dr. Garima Pulliam LACTATE/LACTIC ACIDon 2021 Lactate [Moles/Vol] 1.0 mmol/L Normal 0.4-1.9 [facility] Comment on above: Performed By: #### L ACT ####[facility] Ndqcgaszml[address] [place], [place] [address]Dr. Garima Pulliam PROF CHEM 8 (BAS METB)on Anion gap [Moles/Vol] 11.6 mmol/L Normal [facility] Comment on above: Performed By: #### B NANCY HERNANDEZ ####[facility] Fmeaertwtc[address] [place] [address]Dr. Garima Pulliam Calcium [Mass/Vol] 9.2 mg/dL Normal 8.5-10.1 [facility] Comment on above: Performed By: #### B NANCY HERNANDEZ ####[facility] [address]zvejzd[address] [place] [address]Dr. Garima Pulliam Chloride [Moles/Vol] 105 mmol/L Normal 98-107 [facility] Comment on above: Performed By: #### B MP, CMADM ####[facility] Kmbguepqfd1114 [place] [id number]. Garima Pulliam CO2 [Moles/Vol] 25.9 mmol/L Normal 21.0-32.0 [place] Comment on above: Performed By: #### B DAVID, CMADM ####[facility] Snmnnpqfxw[address] [place] [address]Dr. Garima Pulliam Creatinine [Mass/Vol] 0.72 mg/dL Normal 0.70-1.30 [facility] Comment on above: Performed By: #### B DAVID, CMADM ####[facility] Fvvcqvxinh9[address] [place] [id number]. Garima Pulliam EGFR-AF [place] >60 Normal >=60 [place] Comment on above: Performed By: #### B DAVID, CMADM ####[facility] Kktcdpiqfh[address] [place] [address]Dr. Chapisrenu Pulliam EGFR-NON AF [place] >60 Normal >=60 [facility] Comment on above: Performed By: #### B DAVID, CMAANA ROSA ####[facility] Ncicudwqau[address] [place] [address]Dr. Gairma Pulliam Glucose [Mass/Vol] 111 mg/dL Critically high 74-106 [facility] Comment on above: Performed By: #### B DAVID, CMADM ####[facility] Shdfuniswf4[address] [place] [address]Dr. Chapisrenu Pulliam Potassium [Moles/Vol] 3.5 mmol/L Normal 3.5-5.1 [facility] Comment on above: Performed By: #### B DAVID, CMADM ####[facility] Tzwojlpdjq[address] [place] [address]Dr. Chapisrenu Pulliam Sodium [Moles/Vol] 139 mmol/L Normal 136-145 [facility] Comment on above: Performed By: #### B DAVID, CMADM ####[facility] P[address]qgfcnxos[address] [place] [address]Dr. Garima Pulliam Urea nitrogen [Mass/Vol] 7.0 mg/dL Normal 7.0-18.0 [facility] Comment on above: Performed By: #### B DAVID, CMADM ####[facility] [address]ds[address]j7[address] [place], [place] [address]Me. Garima Pulliam Urea nitrogen/Creatinine [Mass ratio] 9.7 mg/mg Normal [facility] Comment on above: Performed By: #### B MP, CMADM ####[facility] [address] [place], [place] [address]. Garima Pulliam XR CHEST 1 Von 09-12-2022 XR CHEST 1 V Normal [facility] Encounters Encounter Date Encounter Type [...] Facility:[facility] Payers Date Payer Category Payer Unknown [id number] 1960 Medicaid [id number] 1960 Unknown [id number] 1959 Unknown [id number] 1954 Unknown [id number] 2.16.84 0.1.335969.3.579.2.593 1954 Unknown [id number] 2.16.84 0.1.067919.3.579.2.593 1954 Unknown [id number] 2.16.84 0.1.981215.3.579.2.593 1954 Unknown [id number] 2.16.84 0.1.748633.3.579.2.593 1954 Unknown [id number] 2.16.84 0.1.363187.3.579.2.593 1954 Unknown [id number] 2.16.84 0.1.362731.3.579.2.593 1954 Unknown [id number] 2.16.84 0.1.900957.3.579.2.593 1954 Unknown [id number] 2.16.84 0.1.201640.3.579.2.593 1954 Unknown [id number] 2.16.84 0.1.456619.3.579.2.593 1954 Unknown [id number] 2.16.84 0.1.589929.3.579.2.593 1954 Unknown [id number] 2.16.84 0.1.625492.3.579.2.593 1954 Unknown [id number] 2.16.84 0.1.544365.3.579.2.593 1954 Unknown [id number] 2.16.84 0.1.342547.3.579.2.593 1954 Unknown [id number] 2.16.84 0.1.727365.3.579.2.593 1954 Unknown [id number] 2.16.84 0.1.539923.3.579.2.593 1954 Unknown [id number] 2.16.84 0.1.495413.3.579.2.593 1954 Unknown [id number] 2.16.84 0.1.704601.3.579.2.593 1954 Unknown [id number] 2.16.84 0.1.356114.3.579.2.593 1954 Unknown [id number] 2.16.84 0.1.355424.3.579.2.593 1954 Unknown [id number] 2.16.84 0.1.222303.3.579.2.593 Summary Purpose Family History No Family History Records Found Advance Directives No Advanced Directives Records Found Additional Source Comments (unrecognized sect ion and content) No Status Records Found INFORMATION SOURCE (unrecogn ized section and content) DATE CREATED AUTHOR 04/08/2023 [facility] FOR RECORDS PERTAINING TO PATIENTS WHO [...] BE BASED ON THE PRIMARY CLINICAL RECORDS. [facility] [employer] [facility]. provides no warranty or guarantee of the accuracy or completeness of information in this document.
[2025-01-29 16:46] VITALS: BP 180/98; PULSE 71; TEMP 36.8; O2SAT 96; BMI 25.1
--- NOTE | 2025-01-29 19:29 | ED.GENADUL1 ---
Documented by User: PALMIRA Pederson 01/29/25 19:33 HPI HPI - General Adult General Chief complaint: Skin/Abscess/Foreign Body Stated complaint: SOB and Lower Pain Time Seen by Provider: 01/29/25 19:22 Source: patient Mode of arrival: Wheelchair Limitations: no limitations History of Present Illness HPI narrative: This patient is a 69-year-old male who returns to the emergency department for reevaluation. He is very well-known to this emergency department. He is historically noncompliant with his medications. He continues to smoke. He has COPD and is seen frequently for this. Patient states he came to the emergency department tonight to have someone check my toe . Patient had his toenail removed in the ER last week. He states he has been taking his antibiotics that were prescribed. The area has been healing well. He is wearing slippers with no bandage at time of my evaluation. He further would like someone to check my breathing . He has an albuterol inhaler at the bedside. He has no new complaints of fevers or chest pain. He continues to have left low back pain that is worse with movement that has been present for over a week. He was seen in this emergency department for all of the symptoms multiple times this week. He had a CT scan of the abdomen and pelvis showing chronic pancreatitis however he has no complaints of abdominal pain or vomiting. He was also noted to have severe lumbar disc disease on the CT. He is requesting a medication he can take here in the emergency department because he is broke until . Related Data Home Medications ?Medication ?Instructions ?Recorded ?Confirmed albuterol sulfate 90 mcg/actuation 2 inh inhalation Q6H PRN shortness 03/13/24 01/02/25 aerosol inhaler of breath or wheezing Previous Rx's ?Medication ?Instructions ?Recorded losartan 100 mg tablet 100 mg PO DAILY #30 tabs 12/27/23 prednisone 20 mg tablet See Rx Instructions .Route 09/21/24 .COMPLEX #12 tabs albuterol sulfate 2.5 mg/0.5 mL 2.5 mg (0.5 mL) inhalation Q4H PRN 10/02/24 solution for nebulization shortness of breath or wheezing #30 ea hydrocodone 5 mg-acetaminophen 325 1 tab PO Q4H PRN pain #10 tabs 11/11/24 mg tablet ketorolac 10 mg tablet 10 mg PO Q8H PRN pain 1 day #10 11/11/24 tabs metformin 500 mg tablet 500 mg PO BID #30 tabs 11/11/24 ondansetron 4 mg disintegrating 4 mg PO Q4H PRN nausea and 11/11/24 tablet vomiting 3 days #6 tabs tamsulosin 0.4 mg capsule (Flomax) 0.4 mg PO DAILY 7 days #7 caps 11/11/24 tamsulosin 0.4 mg capsule (Flomax) 0.4 mg PO DAILY #14 caps 11/12/24 ipratropium 0.5 mg-albuterol 3 mg 3 ml inhalation Q4H PRN shortness 12/10/24 (2.5 mg base)/3 mL nebulization of breath #90 mL soln albuterol sulfate 2.5 mg/3 mL 2.5 mg (3 mL) inhalation Q6H PRN 12/24/24 (0.083 %) solution for nebulization shortness of breath or wheezing #90 mL losartan 100 mg tablet (Cozaar) 100 mg PO DAILY #30 tabs 12/24/24 dicyclomine 10 mg capsule 10 mg PO QID PRN abdominal pain 12/28/24 #20 caps ondansetron 4 mg disintegrating 4 mg PO Q6H PRN nausea and 12/28/24 tablet vomiting #20 tabs albuterol sulfate 90 mcg/actuation 2 inh inhalation QID PRN shortness 01/02/25 aerosol inhaler of breath or wheezing #8.5 grams losartan 100 mg tablet 100 mg PO DAILY #10 tabs 01/02/25 meloxicam 7.5 mg tablet 7.5 mg PO DAILY PRN pain #10 tabs 01/02/25 oxycodone-acetaminophen 5 mg-325 1 tab PO Q12H PRN pain 3 days #6 01/02/25 mg tablet (Percocet) tabs tamsulosin 0.4 mg capsule (Flomax) 0.4 mg PO DAILY #10 caps 01/02/25 albuterol sulfate 2.5 mg/3 mL 2.5 mg (3 mL) inhalation Q6H PRN 01/24/25 (0.083 %) solution for nebulization shortness of breath or wheezing #90 mL losartan 100 mg tablet 100 mg PO DAILY #30 tabs 01/24/25 metformin 500 mg tablet 500 mg PO BID #20 tabs 01/24/25 albuterol sulfate 90 mcg/actuation 2 inh inhalation Q6H PRN shortness 01/27/25 aerosol inhaler of breath or wheezing #8.5 grams losartan 100 mg tablet 100 mg PO DAILY #30 tabs 01/27/25 Allergies Allergy/AdvReac Type Severity Reaction Status Date / Time No Known Drug Allergies Allergy Verified 01/29/25 16:46 Opioid HPI Opioid Management Most Recent Opioid Data: Last Pain Scale 3 01/27/25 19:02 01/27/25 Last ED Pain Assessment 01/27/25 19:02 Last ORT Total Score 0 01/29/24 06:36 01/29/24 Last ORT Risk Category Low Risk 01/29/24 06:36 01/29/24 Review of Systems ROS Constitutional Denies: fever or chills Ears, nose, mouth, and throat Denies: throat pain or nasal congestion Cardiovascular Denies: chest pain Respiratory Reports: shortness of breath and cough Gastrointestinal Denies: abdominal pain, nausea or vomiting Musculoskeletal Reports: back pain; Denies: neck pain Integumentary/Breast Denies: rash Neurological Denies: headache, numbness in extremities or weakness in extremities Hematologic/Lymphatic Denies: easy bruising or easy bleeding PFSH PFS Medical History Hypokalemia ?E87.6 - Hypokalemia (ICD-10) New onset type 2 diabetes mellitus ?E11.9 - Type 2 diabetes mellitus without complications (ICD-10) Lower extremity edema ?R60.0 - Localized edema (ICD-10) Edema ?R60.9 - Edema, unspecified (ICD-10) Acute hyperglycemia ?R73.9 - Hyperglycemia, unspecified (ICD-10) Tobacco abuse ?Z72.0 - Tobacco use (ICD-10) HTN (hypertension) ?I10 - Essential (primary) hypertension (ICD-10) Community acquired pneumonia ?J18.9 - Pneumonia, unspecified organism (ICD-10) Chronic obstructive pulmonary disease ?J44.9 - Chronic obstructive pulmonary disease, unspecified (ICD-10) Acute exacerbation of chronic obstructive pulmonary disease (COPD) ?J44.1 - Chronic obstructive pulmonary disease with (acute) exacerbation (ICD-10) RLL pneumonia ?J18.9 - Pneumonia, unspecified organism (ICD-10) COPD (chronic obstructive pulmonary disease) ?J44.9 - Chronic obstructive pulmonary disease, unspecified (ICD-10) Surgical History Hx of tonsillectomy ?Z90.89 - Acquired absence of other organs (ICD-10) Family History Mother Family history of cancer Family history of hypertension Father Family history of cancer Social History Within the past year, how often did you have a drink containing alcohol: 4 or more times a week Within the past year, how many standard drinks containing alcohol did you have on a typical day: 3 or 4 Within the past year, how often did you have six or more drinks on one occasion: less than monthly Total score: 3 Score interpretation: A score of 4 or more indicates drinking is likely to affect patient's safety. Smoking status: Current every day smoker Non-prescribed substance use: cannabis (any form) Previous occupational history: retired Highest level of school completed/degree received: high school graduate Are you now , , , , never or living with a partner: In a typical week, how many times do you talk on the telephone with family, friends, or neighbors: twice per week How often do you get together with friends or relatives: once per week How often do you attend baptism or latter day services: never Do you belong to any clubs or organizations such as baptism groups unions, fraternal or athletic groups, or school groups: no Total score: 1 Score interpretation: A score of less than or equal to 1 indicates the most socially isolated. Little interest or pleasure in doing things: not at all Feeling down, depressed, or hopeless: not at all Feel stressed/tense/nervous/anxious/difficulty sleeping: not at all Do you think of yourself as: straight/heterosexual Gender Identity: male Exam Narrative Exam Narrative: Gen.: Awake, alert, in no distress Head: Normocephalic, atraumatic ENT: Moist mucous membranes Respiratory: No respiratory distress, lungs clear bilaterally, no wheezing or rhonchi Cardio: Regular rate and rhythm Extremities: Moves extremities equally Psych: Normal mood and affect Neuro: No focal neuro deficit Skin: Warm, dry, well-healing wound in the nailbed of the left great toe with no surrounding erythema. No drainage or red streaking. Constitutional Vital Signs, click to edit/add: Last Vital Signs Temp 98.2 F 01/29/25 16:46 Pulse 61 01/29/25 19:43 Resp 20 01/29/25 20:07 BP 180/98 H 01/29/25 16:46 Pulse Ox 96 01/29/25 19:43 O2 Del Method Room Air 01/29/25 19:43 Course Vital Signs Vital signs: Vital Signs Temperature 98.2 F 01/29/25 16:46 Pulse Rate 71 01/29/25 16:46 Respiratory Rate 18 01/29/25 16:46 Blood Pressure 180/98 H 01/29/25 16:46 Pulse Oximetry 96 01/29/25 16:46 Oxygen Delivery Method Room Air 01/29/25 16:46 Temperature 98.2 F 01/29/25 16:46 Pulse Rate 61 01/29/25 19:43 Respiratory Rate 20 01/29/25 20:07 Blood Pressure 180/98 H 01/29/25 16:46 Pulse Oximetry 96 01/29/25 19:43 Oxygen Delivery Method Room Air 01/29/25 19:43 Medical Decision Making MDM Narrative Medical decision making narrative: Historically presents to this emergency department requesting a breathing treatment for his COPD because he believes her breathing treatments worked better . His toe appears well-healing with no evidence of cellulitis at this time. He was given Robaxin to take home. Breathing treatment given in the ER. He is hemodynamically stable. He is chronically hypertensive because he does not fill medication refills for blood pressure medication. He is well aware of the limitations of the emergency department to manage his chronic medical conditions. He is strongly encouraged to follow-up with his primary care provider. Return to the ER if symptoms change or worsen. At time of discharge, he is sitting comfortably watching television breathing easily. No hypoxia in the ER. No complaints of chest pain. Wound care provided to the left great toe. He is neurovascularly intact at discharge SUPERVISED APC VISIT, PHYSICIAN ATTESTATION: Based on the medical record the care appears appropriate. ? Medical Records Medical records reviewed: Yes I reviewed the patient's medical records Discharge Plan Discharge Chief Complaint: Skin/Abscess/Foreign Body Clinical Impression: COPD (chronic obstructive pulmonary disease), Visit for wound check Patient Disposition: Home, Self-Care Time of Disposition Decision: 19:28 Condition: Good Prescriptions / Home Meds: No Action losartan 100 mg tablet 100 mg PO DAILY Qty: 30 11RF albuterol sulfate 90 mcg/actuation HFA aerosol inhaler 2 inh inhalation Q6H PRN (Reason: shortness of breath or wheezing) prednisone 20 mg tablet See Rx Instructions .ROUTE .COMPLEX Qty: 12 0RF Rx Instructions: 3 tabs daily for 2 days, then 2 tabs daily for 2 days, then 1 tab daily for 2 days albuterol sulfate 2.5 mg/0.5 mL solution for nebulization 2.5 mg inhalation Q4H PRN (Reason: shortness of breath or wheezing) Qty: 30 2RF dicyclomine 10 mg capsule 10 mg PO QID PRN (Reason: abdominal pain) Qty: 20 0RF ondansetron 4 mg tablet,disintegrating 4 mg PO Q6H PRN (Reason: nausea and vomiting) Qty: 20 0RF metformin 500 mg tablet 500 mg PO BID Qty: 20 0RF losartan 100 mg tablet 100 mg PO DAILY Qty: 30 0RF albuterol sulfate 2.5 mg /3 mL (0.083 %) solution for nebulization 2.5 mg inhalation Q6H PRN (Reason: shortness of breath or wheezing) Qty: 90 0RF hydrocodone-acetaminophen 5-325 mg tablet 1 tab PO Q4H PRN (Reason: pain) Qty: 10 0RF ketorolac 10 mg tablet 10 mg PO Q8H PRN (Reason: pain) 1 Days Qty: 10 0RF tamsulosin [Flomax] 0.4 mg capsule 0.4 mg PO DAILY 7 Days Qty: 7 0RF ondansetron 4 mg tablet,disintegrating 4 mg PO Q4H PRN (Reason: nausea and vomiting) 3 Days Qty: 6 0RF metformin 500 mg tablet 500 mg PO BID Qty: 30 0RF tamsulosin [Flomax] 0.4 mg capsule 0.4 mg PO DAILY Qty: 14 0RF ipratropium-albuterol 0.5 mg-3 mg(2.5 mg base)/3 mL solution for nebulization 3 ml inhalation Q4H PRN (Reason: shortness of breath) Qty: 90 0RF Rx Instructions: until breathing returns to target peak flow/parameters losartan [Cozaar] 100 mg tablet 100 mg PO DAILY Qty: 30 0RF albuterol sulfate 2.5 mg /3 mL (0.083 %) solution for nebulization 2.5 mg inhalation Q6H PRN (Reason: shortness of breath or wheezing) Qty: 90 1RF losartan 100 mg tablet 100 mg PO DAILY Qty: 10 0RF tamsulosin [Flomax] 0.4 mg capsule 0.4 mg PO DAILY Qty: 10 0RF meloxicam 7.5 mg tablet 7.5 mg PO DAILY PRN (Reason: pain) Qty: 10 0RF oxycodone-acetaminophen [Percocet] 5-325 mg tablet 1 tab PO Q12H PRN (Reason: pain) 3 Days Qty: 6 0RF albuterol sulfate 90 mcg/actuation HFA aerosol inhaler 2 inh inhalation QID PRN (Reason: shortness of breath or wheezing) Qty: 8.5 0RF albuterol sulfate 90 mcg/actuation HFA aerosol inhaler 2 inh inhalation Q6H PRN (Reason: shortness of breath or wheezing) Qty: 8.5 0RF losartan 100 mg tablet 100 mg PO DAILY Qty: 30 0RF Print Language: Austrian Instructions: COPD (Chronic Obstructive Pulmonary Disease) (ED), Acute Wounds (ED) Referrals: SERG DUENAS [Primary Care Provider] - 1 week Discharge Date/Time: 01/29/25 20:10 Documented by User: Abiodun Crum MD 01/30/25 01:02 HPI HPI - General Adult General Chief complaint: Skin/Abscess/Foreign Body Stated complaint: SOB and Lower Pain Time Seen by Provider: 01/29/25 19:22 Related Data Home Medications ?Medication ?Instructions ?Recorded ?Confirmed albuterol sulfate 90 mcg/actuation 2 inh inhalation Q6H PRN shortness 03/13/24 01/02/25 aerosol inhaler of breath or wheezing Previous Rx's ?Medication ?Instructions ?Recorded losartan 100 mg tablet 100 mg PO DAILY #30 tabs 12/27/23 prednisone 20 mg tablet See Rx Instructions .Route 09/21/24 .COMPLEX #12 tabs albuterol sulfate 2.5 mg/0.5 mL 2.5 mg (0.5 mL) inhalation Q4H PRN 10/02/24 solution for nebulization shortness of breath or wheezing #30 ea hydrocodone 5 mg-acetaminophen 325 1 tab PO Q4H PRN pain #10 tabs 11/11/24 mg tablet ketorolac 10 mg tablet 10 mg PO Q8H PRN pain 1 day #10 11/11/24 tabs metformin 500 mg tablet 500 mg PO BID #30 tabs 11/11/24 ondansetron 4 mg disintegrating 4 mg PO Q4H PRN nausea and 11/11/24 tablet vomiting 3 days #6 tabs tamsulosin 0.4 mg capsule (Flomax) 0.4 mg PO DAILY 7 days #7 caps 11/11/24 tamsulosin 0.4 mg capsule (Flomax) 0.4 mg PO DAILY #14 caps 11/12/24 ipratropium 0.5 mg-albuterol 3 mg 3 ml inhalation Q4H PRN shortness 12/10/24 (2.5 mg base)/3 mL nebulization of breath #90 mL soln albuterol sulfate 2.5 mg/3 mL 2.5 mg (3 mL) inhalation Q6H PRN 12/24/24 (0.083 %) solution for nebulization shortness of breath or wheezing #90 mL losartan 100 mg tablet (Cozaar) 100 mg PO DAILY #30 tabs 12/24/24 dicyclomine 10 mg capsule 10 mg PO QID PRN abdominal pain 12/28/24 #20 caps ondansetron 4 mg disintegrating 4 mg PO Q6H PRN nausea and 12/28/24 tablet vomiting #20 tabs albuterol sulfate 90 mcg/actuation 2 inh inhalation QID PRN shortness 01/02/25 aerosol inhaler of breath or wheezing #8.5 grams losartan 100 mg tablet 100 mg PO DAILY #10 tabs 01/02/25 meloxicam 7.5 mg tablet 7.5 mg PO DAILY PRN pain #10 tabs 01/02/25 oxycodone-acetaminophen 5 mg-325 1 tab PO Q12H PRN pain 3 days #6 01/02/25 mg tablet (Percocet) tabs tamsulosin 0.4 mg capsule (Flomax) 0.4 mg PO DAILY #10 caps 01/02/25 albuterol sulfate 2.5 mg/3 mL 2.5 mg (3 mL) inhalation Q6H PRN 01/24/25 (0.083 %) solution for nebulization shortness of breath or wheezing #90 mL losartan 100 mg tablet 100 mg PO DAILY #30 tabs 01/24/25 metformin 500 mg tablet 500 mg PO BID #20 tabs 01/24/25 albuterol sulfate 90 mcg/actuation 2 inh inhalation Q6H PRN shortness 01/27/25 aerosol inhaler of breath or wheezing #8.5 grams losartan 100 mg tablet 100 mg PO DAILY #30 tabs 01/27/25 Allergies Allergy/AdvReac Type Severity Reaction Status Date / Time No Known Drug Allergies Allergy Verified 01/29/25 16:46 Opioid HPI Opioid Management Most Recent Opioid Data: Last Pain Scale 3 01/27/25 19:02 01/27/25 Last ED Pain Assessment 01/27/25 19:02 Last ORT Total Score 0 01/29/24 06:36 01/29/24 Last ORT Risk Category Low Risk 01/29/24 06:36 01/29/24 [facility] Medical History Hypokalemia ?E87.6 - Hypokalemia (ICD-10) New onset type 2 diabetes mellitus ?E11.9 - Type 2 diabetes mellitus without complications (ICD-10) Lower extremity edema ?R60.0 - Localized edema (ICD-10) Edema ?R60.9 - Edema, unspecified (ICD-10) Acute hyperglycemia ?R73.9 - Hyperglycemia, unspecified (ICD-10) Tobacco abuse ?Z72.0 - Tobacco use (ICD-10) HTN (hypertension) ?I10 - Essential (primary) hypertension (ICD-10) Community acquired pneumonia ?J18.9 - Pneumonia, unspecified organism (ICD-10) Chronic obstructive pulmonary disease ?J44.9 - Chronic obstructive pulmonary disease, unspecified (ICD-10) Acute exacerbation of chronic obstructive pulmonary disease (COPD) ?J44.1 - Chronic obstructive pulmonary disease with (acute) exacerbation (ICD-10) RLL pneumonia ?J18.9 - Pneumonia, unspecified organism (ICD-10) COPD (chronic obstructive pulmonary disease) ?J44.9 - Chronic obstructive pulmonary disease, unspecified (ICD-10) Surgical History Hx of tonsillectomy ?Z90.89 - Acquired absence of other organs (ICD-10) Family History Mother Family history of cancer Family history of hypertension Father Family history of cancer Social History Within the past year, how often did you have a drink containing alcohol: 4 or more times a week Within the past year, how many standard drinks containing alcohol did you have on a typical day: 3 or 4 Within the past year, how often did you have six or more drinks on one occasion: less than monthly Total score: 3 Score interpretation: A score of 4 or more indicates drinking is likely to affect patient's safety. Smoking status: Current every day smoker Non-prescribed substance use: cannabis (any form) Previous occupational history: retired Highest level of school completed/degree received: high school graduate Are you now , , , , never or living with a partner: In a typical week, how many times do you talk on the telephone with family, friends, or neighbors: twice per week How often do you get together with friends or relatives: once per week How often do you attend baptism or latter day services: never Do you belong to any clubs or organizations such as baptism groups unions, fraternal or athletic groups, or school groups: no Total score: 1 Score interpretation: A score of less than or equal to 1 indicates the most socially isolated. Little interest or pleasure in doing things: not at all Feeling down, depressed, or hopeless: not at all Feel stressed/tense/nervous/anxious/difficulty sleeping: not at all Do you think of yourself as: straight/heterosexual Gender Identity: male Exam Constitutional Vital Signs, click to edit/add: Last Vital Signs Temp 98.2 F 01/29/25 16:46 Pulse 61 01/29/25 19:43 Resp 20 01/29/25 20:07 BP 180/98 H 01/29/25 16:46 Pulse Ox 96 01/29/25 19:43 O2 Del Method Room Air 01/29/25 19:43 Course Vital Signs Vital signs: Vital Signs Temperature 98.2 F 01/29/25 16:46 Pulse Rate 71 01/29/25 16:46 Respiratory Rate 18 01/29/25 16:46 Blood Pressure 180/98 H 01/29/25 16:46 Pulse Oximetry 96 01/29/25 16:46 Oxygen Delivery Method Room Air 01/29/25 16:46 Temperature 98.2 F 01/29/25 16:46 Pulse Rate 61 01/29/25 19:43 Respiratory Rate 20 01/29/25 20:07 Blood Pressure 180/98 H 01/29/25 16:46 Pulse Oximetry 96 01/29/25 19:43 Oxygen Delivery Method Room Air 01/29/25 19:43 Medical Decision Making MDM Narrative Medical decision making narrative: Historically presents to this emergency department requesting a breathing treatment for his COPD because he believes her breathing treatments worked better . His toe appears well-healing with no evidence of cellulitis at this time. He was given Robaxin to take home. Breathing treatment given in the ER. He is hemodynamically stable. He is chronically hypertensive because he does not fill medication refills for blood pressure medication. He is well aware of the limitations of the emergency department to manage his chronic medical conditions. He is strongly encouraged to follow-up with his primary care provider. Return to the ER if symptoms change or worsen. At time of discharge, he is sitting comfortably watching television breathing easily. No hypoxia in the ER. No complaints of chest pain. Wound care provided to the left great toe. He is neurovascularly intact at discharge SUPERVISED APC VISIT, PHYSICIAN ATTESTATION: Based on the medical record the care appears appropriate. I, Dr Crum, have reviewed the above progress note and course of action in the ER; agree with the above. I have personally gone over history and physical, and discussed disposition and treatment plan with the PA. ? Discharge Plan Discharge Chief Complaint: Skin/Abscess/Foreign Body Clinical Impression: COPD (chronic obstructive pulmonary disease), Visit for wound check Patient Disposition: Home, Self-Care Time of Disposition Decision: 19:28 Condition: Good Prescriptions / Home Meds: No Action losartan 100 mg tablet 100 mg PO DAILY Qty: 30 11RF albuterol sulfate 90 mcg/actuation HFA aerosol inhaler 2 inh inhalation Q6H PRN (Reason: shortness of breath or wheezing) prednisone 20 mg tablet See Rx Instructions .ROUTE .COMPLEX Qty: 12 0RF Rx Instructions: 3 tabs daily for 2 days, then 2 tabs daily for 2 days, then 1 tab daily for 2 days albuterol sulfate 2.5 mg/0.5 mL solution for nebulization 2.5 mg inhalation Q4H PRN (Reason: shortness of breath or wheezing) Qty: 30 2RF dicyclomine 10 mg capsule 10 mg PO QID PRN (Reason: abdominal pain) Qty: 20 0RF ondansetron 4 mg tablet,disintegrating 4 mg PO Q6H PRN (Reason: nausea and vomiting) Qty: 20 0RF metformin 500 mg tablet 500 mg PO BID Qty: 20 0RF losartan 100 mg tablet 100 mg PO DAILY Qty: 30 0RF albuterol sulfate 2.5 mg /3 mL (0.083 %) solution for nebulization 2.5 mg inhalation Q6H PRN (Reason: shortness of breath or wheezing) Qty: 90 0RF hydrocodone-acetaminophen 5-325 mg tablet 1 tab PO Q4H PRN (Reason: pain) Qty: 10 0RF ketorolac 10 mg tablet 10 mg PO Q8H PRN (Reason: pain) 1 Days Qty: 10 0RF tamsulosin [Flomax] 0.4 mg capsule 0.4 mg PO DAILY 7 Days Qty: 7 0RF ondansetron 4 mg tablet,disintegrating 4 mg PO Q4H PRN (Reason: nausea and vomiting) 3 Days Qty: 6 0RF metformin 500 mg tablet 500 mg PO BID Qty: 30 0RF tamsulosin [Flomax] 0.4 mg capsule 0.4 mg PO DAILY Qty: 14 0RF ipratropium-albuterol 0.5 mg-3 mg(2.5 mg base)/3 mL solution for nebulization 3 ml inhalation Q4H PRN (Reason: shortness of breath) Qty: 90 0RF Rx Instructions: until breathing returns to target peak flow/parameters losartan [Cozaar] 100 mg tablet 100 mg PO DAILY Qty: 30 0RF albuterol sulfate 2.5 mg /3 mL (0.083 %) solution for nebulization 2.5 mg inhalation Q6H PRN (Reason: shortness of breath or wheezing) Qty: 90 1RF losartan 100 mg tablet 100 mg PO DAILY Qty: 10 0RF tamsulosin [Flomax] 0.4 mg capsule 0.4 mg PO DAILY Qty: 10 0RF meloxicam 7.5 mg tablet 7.5 mg PO DAILY PRN (Reason: pain) Qty: 10 0RF oxycodone-acetaminophen [Percocet] 5-325 mg tablet 1 tab PO Q12H PRN (Reason: pain) 3 Days Qty: 6 0RF albuterol sulfate 90 mcg/actuation HFA aerosol inhaler 2 inh inhalation QID PRN (Reason: shortness of breath or wheezing) Qty: 8.5 0RF albuterol sulfate 90 mcg/actuation HFA aerosol inhaler 2 inh inhalation Q6H PRN (Reason: shortness of breath or wheezing) Qty: 8.5 0RF losartan 100 mg tablet 100 mg PO DAILY Qty: 30 0RF Print Language: Austrian Instructions: COPD (Chronic Obstructive Pulmonary Disease) (ED), Acute Wounds (ED) Referrals: SERG DUENAS [Primary Care Provider] - 1 week Discharge Date/Time: 01/29/25 20:10
[2025-01-29] MEDS: METHOCARBAMOL 500 MG TABLET PO (19:35)
[2025-01-29 19:43] VITALS: PULSE 61; O2SAT 96
[2025-01-29] MEDS: ALBUTEROL SULFATE 2.5 MG/3 ML VIAL NEB IH (19:49)
== END 2025-01-29 20:10 | disposition home or self-care (01) ==
PROVIDERS: Emergency Provider Emergency Medicine
DX: J44.9 Chronic obstructive pulmonary disease, unspecified (principal); R06.02 Shortness of breath; F17.200 Nicotine dependence, unspecified, uncomplicated; I10 Essential (primary) hypertension; Z91.148 Patient's other noncompliance with medication regimen for other reason; Z48.00 Encounter for change or removal of nonsurgical wound dressing
CPT/HCPCS: 94640; 99283

== ENCOUNTER 2025-02-01 19:54 | Emergency (ER) | payer MEDICARE, SELFPAY ==
--- OUTSIDE RECORDS SUMMARY | 2025-02-01 20:01 | XMS_ITS | CCD ---
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 Garima Pulliam Basophils/100 WBC (Bld) 0.3 % Normal 0.2-2.0 [facility] Comment on above: Performed By: #### C BC ####[facility] Bpsngpnpkk2870 [place] [address]DrAdalberto Pulliam EO # 0.3 103/ul Normal 0.0-0.7 [facility] Comment on above: Performed By: #### C BC ####[facility] Yllisezduu[address] [place], [place] [address]Dr. Garima Pulliam Eosinophils/100 WBC (Bld) 2.8 % Normal 0.9-7.0 [facility] Comment on above: Performed By: #### C BC ####[facility] Byqaophbrs8571 [place] [address]Dr. Garima Pulliam Erythrocyte distribution width (RBC) [Ratio] 13.4 % Normal 11.0-15.0 [facility] Comment on above: Performed By: #### C BC ####[facility] Feidusqqqu[address] [place] [address]Dr. Garima Pulliam Hematocrit (Bld) [Volume fraction] 45.7 % Normal 42.0-54.0 [facility] Comment on above: Performed By: #### C BC ####[facility] Ptboasfsic2129 [place] [address]Dr. Garima Pulliam Hemoglobin (Bld) [Mass/Vol] 15.2 g/dL Normal 14.0-18.0 [facility] Comment on above: Performed By: #### C BC ####[facility] Xbnosgazda3096 [place] [address]Dr. Garima Pulliam IG # 0.02 10e3/ul Normal 0.00-0.03 [facility] Comment on above: Performed By: #### C BC ####[facility] Yuoxszbzye5538 [place] [address]Dr. Garima Pulliam IG % 0.2 % Normal 0.0-0.5 [facility] Comment on above: Performed By: #### C BC ####[facility] Iwuoueuzpw8250 [place] [address]Dr. Garima Pulliam LYMPH # 2.1 103/ul Normal 1.2-3.8 [facility] Comment on above: Performed By: #### C BC ####[facility] Ieclepvgtb1787 [place] [address]Dr. Garima Pulliam Lymphocytes/100 WBC (Bld) 23.7 % Normal 20.5-60.0 [facility] Comment on above: Performed By: #### C BC ####[facility] Aqmdneknaz7556 [place] [address]Dr. Garima Heraclio MANUAL DIFF REQ NO Normal [facility] Comment on above: Performed By: #### C BC ####[facility] Phueofvhpb7598 [place] [address]Dr. Garima Pulliam MCH (RBC) [Entitic mass] 30.4 pg Normal 25.9-34.0 [facility] Comment on above: Performed By: #### C BC ####[facility] Xiueukocsl6952 [place] [address]Dr. Garima Heraclio MCHC (RBC) [Mass/Vol] 33.3 g/dL Normal 29.9-35.2 [facility] Comment on above: Performed By: #### C BC ####[facility] Fltcqivfrz[address] [place], [place] [address]Dr. Chapisrenu Pulliam MCV (RBC) [Entitic vol] 91.4 fL Normal 80.0-94.0 [facility] Comment on above: Performed By: #### C BC ####[facility] Yokdoxtxyd[address] [place], [place] [address]Dr. Garima Heraclio MONO # 0.7 103/ul Normal 0.3-0.8 [facility] Comment on above: Performed By: #### C BC ####[facility] Wgzbovofaj[address] [place], [place] [address]Dr. Chapisrenu Pulliam Monocytes/100 WBC (Bld) 8.3 % Normal 1.7-12.0 [facility] Comment on above: Performed By: #### C BC ####[facility] Vwznqibcbf5301 [place] [address]Dr. Chapisrenu Heraclio NEUT # 5.8 103/ul Normal 1.4-6.5 [facility] Comment on above: Performed By: #### C BC ####[facility] Ngdekljaka53[address] [place], [place] [address]Dr. Garima Pulliam Neutrophils/100 WBC (Bld) 64.7 % Normal 43.0-75.0 [facility] Comment on above: Performed By: #### C BC ####[facility] Ctyaqomxiw2339 [place] [address]Dr. Garima Pulliam Platelet mean volume (Bld) [Entitic vol] 8.6 fL Critically low 9.5-13.5 [facility] Comment on above: Performed By: #### C BC ####[facility] Lwlojfnusk9038 [place] [address]Dr. Garima Pulliam PLT 230 103/ul Normal 150-450 [facility] Comment on above: Performed By: #### C BC ####[facility] Sdjvyjnnra7417 [place] [address]Dr. Chapisrenu Heraclio RBC 5.00 106/ul Normal 4.70-6.10 [facility] Comment on above: Performed By: #### C BC ####[facility] Ljktiedkpp9320 [place] [address]Dr. Garima Heraclio WBC 9.0 103/ul Normal 4.0-11.0 [facility] Comment on above: Performed By: #### C BC ####[facility] Fsuatwgiba6411 [place] [address]Dr. Garima Pulliam MAGNESIUMon 04-04-2023 Magnesium [Mass/Vol] 1.8 mg/dL Normal 1.8-2.4 [facility] Comment on above: Performed By: #### M G ####[facility] Vydibddbyx4832 [place] [address]Dr. Chapisrenu Pulliam PROF 14(COMP METB)on 023 Albumin [Mass/Vol] 3.8 g/dL Normal 3.4-5.0 [facility] Comment on above: Performed By: #### C MP ####[facility] Sgccwfllsl9619 [place] [address]Dr. Garima Pulliam Albumin/Globulin [Mass ratio] 1.2 {ratio} Normal [facility] Comment on above: Performed By: #### C MP ####[facility] Wcqjebqhan3797 [place] [address]Dr. Garima Heraclio ALP [Catalytic activity/Vol] 84 U/L Normal 46-116 [facility] Comment on above: Performed By: #### C MP ####[facility] Rifwbppcbr5486 [place] [phone]. Garima Pulliam ALT [Catalytic activity/Vol] 31 U/L Normal 16-63 [facility] Comment on above: Performed By: #### C MP ####[facility] Keyshfpzjf0537 [place] [address]Dr. Garima Pulliam Anion gap [Moles/Vol] 12.2 mmol/L Normal [facility] Comment on above: Performed By: #### C MP ####[facility] Eetctgsedt6659 [place] [address]Dr. Garima Pulliam AST [Catalytic activity/Vol] 23 U/L Normal 15-37 [facility] Comment on above: Performed By: #### C MP ####[facility] Uxhnlvbhgb[address] [place], [place] [address]Dr. Garima Pulliam Bilirubin [Mass/Vol] 0.5 mg/dL Normal 0.2-1.0 [facility] Comment on above: Performed By: #### C MP ####[facility] Yqvszuaecs[address] [place], [place] [address]Dr. Garima Pulliam Calcium [Mass/Vol] 9.2 mg/dL Normal 8.5-10.1 [facility] Comment on above: Performed By: #### C MP ####[facility] Mqyloueinh[address] [place], [place] [address]Dr. Garima Pulliam Chloride [Moles/Vol] 103 mmol/L Normal 98-107 [facility] Comment on above: Performed By: #### C MP ####[facility] Guynlkvoot9308 [place] [address]Dr. Garima Pulliam CO2 [Moles/Vol] 28.5 mmol/L Normal 21.0-32.0 [facility] Comment on above: Performed By: #### C MP ####[facility] Rqoqqkyjaw9[address] [place], [place] [address]Dr. Garima Pulliam Creatinine [Mass/Vol] 0.74 mg/dL Normal 0.70-1.30 [facility] Comment on above: Performed By: #### C MP ####[facility] Ntlyqikwbu0854 [place] [id number]. Garima Pulliam EGFR-AF PALAUAN >60 Normal >=60 [facility] Comment on above: Performed By: #### C MP ####[facility] Fhjtlkyntx0757 [place] [address]Dr. Garima Heraclio EGFR-NON AF PALAUAN >60 Normal >=60 [facility] Comment on above: Performed By: #### C MP ####[facility] Xdveatitgm2643 [place] [phone]. Garima Heraclio Globulin (S) [Mass/Vol] 3.1 g/dL Normal [facility] Comment on above: Performed By: #### C MP ####[facility] Cvufxtqssg[address] [place], [place] [address]Dr. Garima Heraclio Glucose [Mass/Vol] 93 mg/dL Normal 74-106 [facility] Comment on above: Performed By: #### C MP ####[facility] Rgyuchrtzc68[address] [place], [place] [address]Dr. Garima Heraclio Potassium [Moles/Vol] 3.7 mmol/L Normal 3.5-5.1 [facility] Comment on above: Performed By: #### C MP ####[facility] Xxnzkninue168[address] [place], [place] [address]Dr. Garima Heraclio Protein [Mass/Vol] 6.9 g/dL Normal 6.4-8.2 [facility] Comment on above: Performed By: #### C MP ####[facility] Dqjbbpwggm245[address] [place], [place] [address]Dr. Garima Heraclio Sodium [Moles/Vol] 140 mmol/L Normal 136-145 [facility] Comment on above: Performed By: #### C MP ####[facility] Tjnwqeulyc[address] [place], [place] [address]Dr. Garima Pulliam Urea nitrogen [Mass/Vol] 8.0 mg/dL Normal 7.0-18.0 [facility] Comment on above: Performed By: #### C MP ####[facility] Ezuvusuyzv[address] [place], [place] [address]Dr. Garima Pulliam Urea nitrogen/Creatinine [Mass ratio] 10.8 mg/mg Normal [facility] Comment on above: Performed By: #### C DAVID ####[facility] Sojkvaefvb9067 [place] [address]Dr. Garima Pulliam AMMONIAon 03-30-2023 Ammonia (P) [Moles/Vol] 11 umol/L Normal 11-32 [facility] Comment on above: Performed By: #### A MM ####[facility] Yifkpewskk7[address] [place], [place] [address]Dr. Garima Pulliam CARDIAC NASH ADMITon 023 CK [Catalytic activity/Vol] 232 U/L Normal 39-308 [facility] Comment on above: Performed By: #### C NANCY HERNANDEZ ####[facility] Ecgbllbmsq6669 [place] [address]Dr. Chapisrenu Pulliam CK.MB [Mass/Vol] 4.83 ng/mL Critically high <=3.60 [facility] Comment on above: Performed By: #### C NANCY HERNANDEZ ####[facility] Temzyjnyvh[address] [place], [place] [address]Dr. Garima Pulliam HSTROP 10.5 pg/mL Normal 4.0-76.1 [facility] Comment on above: Result Comment: CUT- OFF POINTS HAVE BEEN ESTABLISHED BASED ON THE FOURTH UNIVERSAL DEFINITIONS OF MYOCARDIALINFARCTION. THE UPPER REFERENCE LIMIT (URL) OF TROPONIN, DEFINED THE 99TH PERCENTILE OFcTnI DISTRIBUTION IN A REFERENCE POPULATION, HAS BEEN CONFIRMED THE DECISION THRESHOLDFOR NV DIAGNOSIS. Performed By: #### C NANCY HERNANDEZ ####[facility] Jyrnidolpg[address] [place], [place] [address]Dr. Garima Heraclio DORIS 79 ng/mL Normal 16-96 [facility] Comment on above: Performed By: #### C NANCY HERNANDEZ ####[facility] Mzthhioupi[address] [place], [place] [address]Dr. Garima Heraclio CBC AUTO DIFFon 03-30-2023 BASO # 0.0 103/ul Normal 0.0-0.1 [facility] Comment on above: Performed By: #### C BC ####[facility] Jxjftcmydx3675 [place] [phone]. Garima Pulliam Basophils/100 WBC (Bld) 0.1 % Critically low 0.2-2.0 [facility] Comment on above: Performed By: #### C BC ####[facility] Sqsbtmbcwq5891 [place] [phone]. Garima Pulliam EO # 0.3 103/ul Normal 0.0-0.7 [facility] Comment on above: Performed By: #### C BC ####[facility] [address]sf[address] [place], [place] [address]Dr. Garima Pulliam Eosinophils/100 WBC (Bld) 3.3 % Normal 0.9-7.0 [facility] Comment on above: Performed By: #### C BC ####[facility] Gqnqnonyhh[address] [place], [place] [address]Dr. Garima Pulliam Erythrocyte distribution width (RBC) [Ratio] 13.5 % Normal 11.0-15.0 [facility] Comment on above: Performed By: #### C BC ####[facility] Itlowdgtwn[address] [place], [place] [address]Dr. Garima Pulliam Hematocrit (Bld) [Volume fraction] 42.9 % Normal 42.0-54.0 [facility] Comment on above: Performed By: #### C BC ####[facility] Sztogicatv[address] [place], [place] [address]Dr. Garima Pulliam Hemoglobin (Bld) [Mass/Vol] 13.9 g/dL Critically low 14.0-18.0 [facility] Comment on above: Performed By: #### C BC ####[facility] Opdsxfhsgr6210 [place] [phone]. Garima Pulliam IG # 0.01 10e3/ul Normal 0.00-0.03 [facility] Comment on above: Performed By: #### C BC ####[facility] K[address]xy[address]apif[address] [place], [place] [address]Dr. Garima Pulliam IG % 0.1 % Normal 0.0-0.5 [facility] Comment on above: Performed By: #### C BC ####[facility] Yfikjxiohk7810 [place] [phone]. Garima Pulliam LYMPH # 1.7 103/ul Normal 1.2-3.8 [facility] Comment on above: Performed By: #### C BC ####[facility] Lopttiduik1447 [place], [place] [address]Du. Garima Pulliam Lymphocytes/100 WBC (Bld) 22.8 % Normal 20.5-60.0 [facility] Comment on above: Performed By: #### C BC ####[facility] Xsgzjnwzez7112 [place] [phone]. Garima Heraclio MANUAL DIFF REQ NO Normal [facility] Comment on above: Performed By: #### C BC ####[facility] Hvnwwpnerk4153 [place] [phone]. Garima Heraclio MCH (RBC) [Entitic mass] 30.5 pg Normal 25.9-34.0 [facility] Comment on above: Performed By: #### C BC ####[facility] Tqcnowwpem9547 [place] [phone]. Garima Pulliam MCHC (RBC) [Mass/Vol] 32.4 g/dL Normal 29.9-35.2 [facility] Comment on above: Performed By: #### C BC ####[facility] Tmaljpqmdh4775 [place] [phone]. Garima Heraclio MCV (RBC) [Entitic vol] 94.1 fL Critically high 80.0-94.0 [facility] Comment on above: Performed By: #### C BC ####[facility] Ctwkcwpvmx6579 [place] [phone]. Garima Heraclio MONO # 0.7 103/ul Normal 0.3-0.8 [facility] Comment on above: Performed By: #### C BC ####[facility] Imokkyrykn4052 [place] [phone]. Garima Heraclio Monocytes/100 WBC (Bld) 8.6 % Normal 1.7-12.0 [facility] Comment on above: Performed By: #### C BC ####[facility] Truuxnwkwj7045 [place] [phone]. Garima Pulliam NEUT # 4.9 103/ul Normal 1.4-6.5 [facility] Comment on above: Performed By: #### C BC ####[facility] Hhwyegacbp3938 [place] [phone]. Garima Pulliam Neutrophils/100 WBC (Bld) 65.1 % Normal 43.0-75.0 [facility] Comment on above: Performed By: #### C BC ####[facility] Nnjzlhpido0040 [place] [phone]. Garima Pulliam Platelet mean volume (Bld) [Entitic vol] 8.5 fL Critically low 9.5-13.5 [facility] Comment on above: Performed By: #### C BC ####[facility] Okjvtawssr3559 [place] [phone]. Garima Pulliam PLT 219 103/ul Normal 150-450 [facility] Comment on above: Performed By: #### C BC ####[facility] Nzvgmmvvkb6045 [place] [phone]. Garima Pulilam RBC 4.56 106/ul Critically low 4.70-6.10 [facility] Comment on above: Performed By: #### C BC ####[facility] Cakayxidtx1354 [place] [phone]. Garima Pulliam WBC 7.6 103/ul Normal 4.0-11.0 [facility] Comment on above: Performed By: #### C BC ####[facility] Jmjssrtkml9121 [place] [phone]. Garima Pulliam LACTATE/LACTIC ACIDon 2022 Lactate [Moles/Vol] 1.2 mmol/L Normal 0.4-2.0 [facility] Comment on above: Performed By: #### L ACT ####[facility] Nvyendyjeh0081 [place] [phone]. Garima Pulliam MAGNESIUMon 03-30-2023 Magnesium [Mass/Vol] 1.8 mg/dL Normal 1.8-2.4 [facility] Comment on above: Performed By: #### M G ####[facility] Xeygamyaig7862 [place] [address]Dr. Garima Pulliam PROF 14(COMP METB)on 023 Albumin [Mass/Vol] 3.5 g/dL Normal 3.4-5.0 [facility] Comment on above: Performed By: #### C DAVID, CMAANA ROSA ####[facility] Zrigyunkwv7276 [place] [address]Dr. Garima Pulliam Albumin/Globulin [Mass ratio] 1.2 {ratio} Normal [facility] Comment on above: Performed By: #### C DAVID, CMAANA ROSA ####[facility] Axrxjsxyie3045 [place] [address]Dr. Garima Pulliam ALP [Catalytic activity/Vol] 85 U/L Normal 46-116 [facility] Comment on above: Performed By: #### C DAVID, CMAANA ROSA ####[facility] Szrcvnwpyb[address] [place], [place] [address]Dr. Garima Pulliam ALT [Catalytic activity/Vol] 29 U/L Normal 16-63 [facility] Comment on above: Performed By: #### C DAVID, CMAANA ROSA ####[facility] Wimiekwwvf1436 [place] [address]Dr. Garima Pulliam Anion gap [Moles/Vol] 8.0 mmol/L Normal [facility] Comment on above: Performed By: #### C DAVID, CMAANA ROSA ####[facility] Vyakrlrnds9124 [place] [address]Dr. Garima Pulliam AST [Catalytic activity/Vol] 18 U/L Normal 15-37 [facility] Comment on above: Performed By: #### C DAVID, CMADM ####[facility] Bhbtqfodin6558 [place] [address]Dr. Garima Pulliam Bilirubin [Mass/Vol] 0.4 mg/dL Normal 0.2-1.0 [facility] Comment on above: Performed By: #### C DAVID, CMADM ####[facility] Qbfxtkbwzq2321 [place] [address]Dr. Garima Pulliam Calcium [Mass/Vol] 8.8 mg/dL Normal 8.5-10.1 [facility] Comment on above: Performed By: #### C DAVID, NANCY ####[facility] Qxhxbdxlcl1024 [place] [address]Dr. Chapisrenu Pulliam Chloride [Moles/Vol] 108 mmol/L Critically high 98-107 [facility] Comment on above: Performed By: #### C DAVID, NANCY ####[facility] Djnziernsv6688 [place] [address]Dr. Garima Pulliam CO2 [Moles/Vol] 29.6 mmol/L Normal 21.0-32.0 [facility] Comment on above: Performed By: #### C NANCY HERNANDEZ ####[facility] Vuhhipszyo[address] [place], [place] [address]Dr. Garima Pulliam Creatinine [Mass/Vol] 0.77 mg/dL Normal 0.70-1.30 [facility] Comment on above: Performed By: #### C NANCY HERNANDEZ ####[facility] Nfrkjphnux[address] [place], [place] [address]Dr. Garima Heraclio EGFR-AF PALAUAN >60 Normal >=60 [facility] Comment on above: Performed By: #### C NANCY HERNANDEZ ####[facility] Xbibhtkkkn[address] [place], [place] [address]Dr. Garima Heraclio EGFR-NON AF PALAUAN >60 Normal >=60 [facility] Comment on above: Performed By: #### C NANCY HERNANDEZ ####[facility] Lgfqagrdos9639 [place] [address]Dr. Garima Pulliam Globulin (S) [Mass/Vol] 2.8 g/dL Normal [facility] Comment on above: Performed By: #### C NANCY HERNANDEZ ####[facility] Oiplcshoma4886 [place] [address]Dr. Garima Pulliam Glucose [Mass/Vol] 207 mg/dL Critically high 74-106 [facility] Comment on above: Performed By: #### C NANCY HERNANDEZ ####[facility] [address]jrcwpkat[address] [place], [place] [address]Dr. Garima Pulliam Potassium [Moles/Vol] 4.6 mmol/L Normal 3.5-5.1 [facility] Comment on above: Performed By: #### C DAVID, NANCY ####[facility] Cukzsynhfc9222 [place] [address]Dr. Garima Pulliam Protein [Mass/Vol] 6.3 g/dL Critically low 6.4-8.2 [facility] Comment on above: Performed By: #### C DAVID, NANCY ####[facility] Ululcjnsyk2009 [place] [address]Dr. Garima Pulliam Sodium [Moles/Vol] 141 mmol/L Normal 136-145 [facility] Comment on above: Performed By: #### C DAVID, NANCY ####[facility] Knoixsnxbz2819 [place] [address]Dr. Garima Pulliam Urea nitrogen [Mass/Vol] 9.0 mg/dL Normal 7.0-18.0 [facility] Comment on above: Performed By: #### C DAVID, NANCY ####[facility] Vivhbfuouj2686 [place] [address]Dr. Garima Pulliam Urea nitrogen/Creatinine [Mass ratio] 11.7 mg/mg Normal [facility] Comment on above: Performed By: #### C DAVID, NANCY ####[facility] Mmifnwwdgf1920 [place] [address]Dr. Garima Pulliam XR CHEST 1 Von 03-30-2023 XR CHEST 1 V Normal [facility] BNPon 03-27-2023 Natriuretic peptide B (Bld) [Mass/Vol] 251.0 pg/mL Normal <=900.0 [facility] Comment on above: Performed By: #### C MP, BNP, LIPID ####[facility] Vjvblcgaza1679 [place] [address]Dr. Garima Pulliam GLYCOHEMOGLOBIN A1Con 2022 ADA RECOMMENDATION SEE BELOW Normal [facility] Comment on above: Result Comment: ADA RECOMMENDED LIMIT 4.0 - 6.0 ADA THERAPEUTIC TARGET < 7.0 ACTION SUGGESTED > 7.0 Performed By: #### A 1C ####[facility] Vowymcidvy3022 [place] [address]Dr. Garima Pulliam Glucose [Mass/Vol] 180 mg/dL Normal [facility] Comment on above: Performed By: #### A 1C ####[facility] [address]vspighkhc[address] [place], [place] [address]Dr. Chapisrenu Pulliam HbA1c (Bld) [Mass fraction] 7.9 % Critically high 4.5-6.2 [facility] Comment on above: Performed By: #### A 1C ####[facility] Wtakdomcus[address] [place], [place] [address]Dr. Garima Pulliam HEMOGRAM AND PLATELon 2022 Hematocrit (Bld) [Volume fraction] 45.7 % Normal 42.0-54.0 [facility] Comment on above: Performed By: #### H H ####[facility] [address]vbvcefbeh[address] [place], [place] [address]Dr. Garima Pulliam Hemoglobin (Bld) [Mass/Vol] 15.1 g/dL Normal 14.0-18.0 [facility] Comment on above: Performed By: #### H H ####[facility] Sp[address]frnverv7[address] [place], [place] [address]Dr. Garima Pulliam MCH (RBC) [Entitic mass] 30.0 pg Normal 25.9-34.0 [facility] Comment on above: Performed By: #### H H ####[facility] [address]dkupslswu94[address] [place], [place] [address]Dr. Garima Pulliam MCHC (RBC) [Mass/Vol] 33.0 g/dL Normal 29.9-35.2 [facility] Comment on above: Performed By: #### H H ####[facility] Lyqmotkpzd[address] [place], [place] [address]Dr. Garima Pulliam MCV (RBC) [Entitic vol] 90.7 fL Normal 80.0-94.0 [facility] Comment on above: Performed By: #### H H ####[facility] Qkuhejdxkh9[address] [place], [place] [address]Dr. Garima Pulliam PLT 222 103/ul Normal 150-450 [facility] Comment on above: Performed By: #### H H ####[facility] Xttggbstws1241 [place] [phone]. Garima Pulliam RBC 5.04 106/ul Normal 4.70-6.10 [facility] Comment on above: Performed By: #### H H ####[facility] Jmeeuodoqa5264 [place] [phone]. Garima Pulliam WBC 8.7 103/ul Normal 4.0-11.0 [facility] Comment on above: Performed By: #### H H ####[facility] Ihprvyurkl9955 [place] [id number]. Garima Pulliam LIPID PROFILEon 03-27-2023 CHOL-HDL RATIO NORM SEE BELOW Normal [facility] Comment on above: Result Comment: 3.3 - 4.4 LOW RISK 4.4 - 7.1 AVERAGE RISK 7.1 - 11.0 MODERATE RISK >11.0 HIGH RISK Performed By: #### C MP, BNP, LIPID ####[facility] Taomccishg00[address] [place] [address]Dr. Garima Pulliam Cholesterol [Mass/Vol] 113 mg/dL Normal <=200 [facility] Comment on above: Performed By: #### C MP, BNP, LIPID ####[facility] Cypakacfem8699 [place] [address]Dr. Garima Pulliam Cholesterol in HDL [Mass/Vol] 51 mg/dL Normal 40-60 [facility] Comment on above: Performed By: #### C MP, BNP, LIPID ####[facility] Eiqujzlxzk5400 [place] [address]Dr. Garima Pulliam Cholesterol in LDL [Mass/Vol] 49.8 mg/dL Normal [facility] Comment on above: Performed By: #### C MP, BNP, LIPID ####[facility] Hfvcnpxrju4248 [place] [address]Dr. Garima Pulliam Cholesterol.total/Cho lesterol in HDL [Mass ratio] 2.2 {ratio} Normal [facility] Comment on above: Performed By: #### C MP, BNP, LIPID ####[facility] Poblhtgird2804 [place] [address]Dr. Garima Pulliam HDL NORMAL > or = 60 mg/dl - LOW CARDIOVASCULAR RISK <40 mg/dl - HIGH CARDIOVASCULAR RISK Normal [facility] Comment on above: Performed By: #### C MP, BNP, LIPID ####[facility] Swiicujgoy9372 [place] [address]Dr. Garima Pulliam LDL CALC NORMAL SEE BELOW Normal [facility] Comment on above: Result Comment: <100 mg/dl OPTIMAL 100 - 129 mg/dl NEAR OR ABOVE OPTIMAL 130 - 159 mg/dl BORDERLINE HIGH 160 - 189 mg/dl HIGH >190 mg/dl VERY HIGH Performed By: #### C MP, BNP, LIPID ####[facility] Szofggubjr3124 [place] [address]Dr. Garima Pulliam Triglyceride [Mass/Vol] 61 mg/dL Normal <=150 [facility] Comment on above: Performed By: #### C MP, BNP, LIPID ####[facility] Pwtswlruje4419 [place] [address]Dr. Garima Pulliam VLDL CALC 12.2 mg/dL Normal [facility] Comment on above: Performed By: #### C MP, BNP, LIPID ####[facility] Urcrhveggi9875 [place] [address]Dr. Garima Pulliam PROF 14(COMP METB)on 023 Albumin [Mass/Vol] 3.5 g/dL Normal 3.4-5.0 [facility] Comment on above: Performed By: #### C MP, BNP, LIPID ####[facility] Btdxdcuvka1081 [place] [address]Dr. Garima Pulliam Albumin/Globulin [Mass ratio] 1.2 {ratio} Normal [facility] Comment on above: Performed By: #### C MP, BNP, LIPID ####[facility] Dybpsrhwok5984 [place] [address]Dr. Garima Pulliam ALP [Catalytic activity/Vol] 82 U/L Normal 46-116 [facility] Comment on above: Performed By: #### C MP, BNP, LIPID ####[facility] Jfncbinukf0740 [place] [address]Dr. Garima Pulliam ALT [Catalytic activity/Vol] 33 U/L Normal 16-63 [facility] Comment on above: Performed By: #### C MP, BNP, LIPID ####[facility] Ustrqqsakf4630 [place] [address]Dr. Garima Pullima Anion gap [Moles/Vol] 9.9 mmol/L Normal [facility] Comment on above: Performed By: #### C MP, BNP, LIPID ####[facility] Jsrhbuesbx7381 [place] [address]Dr. Garima Pulliam AST [Catalytic activity/Vol] 24 U/L Normal 15-37 [facility] Comment on above: Performed By: #### C MP, BNP, LIPID ####[facility] Hugkulufup1431 [place] [address]Dr. Garima Pulliam Bilirubin [Mass/Vol] 0.6 mg/dL Normal 0.2-1.0 [facility] Comment on above: Performed By: #### C MP, BNP, LIPID ####[facility] Pmqgtjmbdr0048 [place] [address]Dr. Garima Pulliam Calcium [Mass/Vol] 9.2 mg/dL Normal 8.5-10.1 [facility] Comment on above: Performed By: #### C MP, BNP, LIPID ####[facility] Dnrlujrkvt6260 [place] [address]Dr. Garima Pulliam Chloride [Moles/Vol] 106 mmol/L Normal 98-107 [facility] Comment on above: Performed By: #### C MP, BNP, LIPID ####[facility] Pymlpnbpiy2817 [place] [address]Dr. Garima Pulliam CO2 [Moles/Vol] 32.3 mmol/L Critically high 21.0-32.0 [facility] Comment on above: Performed By: #### C MP, BNP, LIPID ####[facility] Glvzzujmcf0106 [place] [address]Dr. Garima Pulliam Creatinine [Mass/Vol] 0.70 mg/dL Normal 0.70-1.30 [facility] Comment on above: Performed By: #### C MP, BNP, LIPID ####[facility] Tbuuowgyzh2234 [place] [id number]. Garima Pulliam EGFR-AF PALAUAN >60 Normal >=60 [facility] Comment on above: Performed By: #### C MP, BNP, LIPID ####[facility] Myvhbnmbel7409 [place] [id number]. Garima Pulliam EGFR-NON AF PALAUAN >60 Normal >=60 [facility] Comment on above: Performed By: #### C MP, BNP, LIPID ####[facility] Ihpbmfngeq2041 [place] [address]Dr. Garima Pulliam Globulin (S) [Mass/Vol] 2.9 g/dL Normal [facility] Comment on above: Performed By: #### C MP, BNP, LIPID ####[facility] Xnldqgmlnw4882 [place] [address]Dr. Garima Pulliam Glucose [Mass/Vol] 111 mg/dL Critically high 74-106 [facility] Comment on above: Performed By: #### C MP, BNP, LIPID ####[facility] Ncnljwqiyj7927 [place] [address]Dr. Garima Pulliam Potassium [Moles/Vol] 4.2 mmol/L Normal 3.5-5.1 [facility] Comment on above: Performed By: #### C MP, BNP, LIPID ####[facility] Otjmploexh0974 [place] [address]Dr. Garima Pulliam Protein [Mass/Vol] 6.4 g/dL Normal 6.4-8.2 [facility] Comment on above: Performed By: #### C MP, BNP, LIPID ####[facility] Gnniibemdl9052 [place] [address]Dr. Garima Pulliam Sodium [Moles/Vol] 144 mmol/L Normal 136-145 [facility] Comment on above: Performed By: #### C MP, BNP, LIPID ####[facility] Rnwhrdrlpy9215 [place] [address]Dr. Garima Pulliam Urea nitrogen [Mass/Vol] 7.0 mg/dL Normal 7.0-18.0 [facility] Comment on above: Performed By: #### C MP, BNP, LIPID ####[facility] Zvpxctakxl7[address] [place], [place] [address]Dr. Garima Pulliam Urea nitrogen/Creatinine [Mass ratio] 10.0 mg/mg Normal [facility] Comment on above: Performed By: #### C MP, BNP, LIPID ####[facility] Xdoahqwnkg[address] [place], [place] [address]Dr. Garima Pulliam BNPon 03-22-2023 Natriuretic peptide B (Bld) [Mass/Vol] 103.0 pg/mL Normal <=900.0 [facility] Comment on above: Performed By: #### B MEAT GRADING MACHINE OPERATOR, BMP ####[facility] Rxhlvezifu8[address] [place], [place] [address]Dr. Garima Pulliam CBC AUTO DIFFon 03-22-2023 BASO # 0.0 103/ul Normal 0.0-0.1 [facility] Comment on above: Performed By: #### C BC ####[facility] Ogckhrcqnz[address] [place], [place] [address]Dr. Garima Heraclio Basophils/100 WBC (Bld) 0.3 % Normal 0.2-2.0 [facility] Comment on above: Performed By: #### C BC ####[facility] Wclbxhkffj74[address] [place], [place] [address]Dr. Garima Pulliam EO # 0.2 103/ul Normal 0.0-0.7 [facility] Comment on above: Performed By: #### C BC ####[facility] Gplbqddzhw[address] [place], [place] [address]Dr. Garima Pulliam Eosinophils/100 WBC (Bld) 2.2 % Normal 0.9-7.0 [facility] Comment on above: Performed By: #### C BC ####[facility] Ibxytzauuw79[address] [place], [place] [address]Dr. Garima Pulliam Erythrocyte distribution width (RBC) [Ratio] 13.2 % Normal 11.0-15.0 [facility] Comment on above: Performed By: #### C BC ####[facility] Szzikurtyf4900 [place] [id number]. Garima Pulliam Hematocrit (Bld) [Volume fraction] 43.4 % Normal 42.0-54.0 [facility] Comment on above: Performed By: #### C BC ####[facility] Vbqmwomaue1451 [place] [address]Dr. Garima Heraclio Hemoglobin (Bld) [Mass/Vol] 14.3 g/dL Normal 14.0-18.0 [facility] Comment on above: Performed By: #### C BC ####[facility] Hgbsdbdpsc2187 [place] [address]Dr. Garima Pulliam IG # 0.02 10e3/ul Normal 0.00-0.03 [facility] Comment on above: Performed By: #### C BC ####[facility] Jqmzvsiiqr4619 [place] [address]Dr. Garima Pulliam IG % 0.3 % Normal 0.0-0.5 [facility] Comment on above: Performed By: #### C BC ####[facility] Vkaglvmiqx9102 [place] [address]Dr. Chapisrenu Pulliam LYMPH # 2.0 103/ul Normal 1.2-3.8 [facility] Comment on above: Performed By: #### C BC ####[facility] Vhwurbjzpg5965 [place] [address]Dr. Chapisrenu Pulliam Lymphocytes/100 WBC (Bld) 24.8 % Normal 20.5-60.0 [facility] Comment on above: Performed By: #### C BC ####[facility] Vmisuhhbbg3121 [place] [address]Dr. Chapisrenu Pulliam MANUAL DIFF REQ NO Normal [facility] Comment on above: Performed By: #### C BC ####[facility] Bexoygoujm7298 [place] [address]Dr. Garima Heraclio MCH (RBC) [Entitic mass] 30.0 pg Normal 25.9-34.0 [facility] Comment on above: Performed By: #### C BC ####[facility] Wyousxgrgv4[address] [place], [place] [address]Dr. Garima Pulliam MCHC (RBC) [Mass/Vol] 32.9 g/dL Normal 29.9-35.2 [facility] Comment on above: Performed By: #### C BC ####[facility] Sjhlfvzesf7912 [place] [id number]. Garima Pulliam MCV (RBC) [Entitic vol] 91.0 fL Normal 80.0-94.0 [facility] Comment on above: Performed By: #### C BC ####[facility] Kxeyvitpbl4745 [place] [id number]. Garima Heraclio MONO # 0.8 103/ul Normal 0.3-0.8 [facility] Comment on above: Performed By: #### C BC ####[facility] Sxqvknupow2134 [place] [address]Dr. Chapisrenu Pulliam Monocytes/100 WBC (Bld) 9.7 % Normal 1.7-12.0 [facility] Comment on above: Performed By: #### C BC ####[facility] Rsqulnehvq4933 [place] [address]Dr. Garima Pulliam NEUT # 4.9 103/ul Normal 1.4-6.5 [facility] Comment on above: Performed By: #### C BC ####[facility] Mmfqrmxhuw8734 [place] [id number]. Garima Heraclio Neutrophils/100 WBC (Bld) 62.7 % Normal 43.0-75.0 [facility] Comment on above: Performed By: #### C BC ####[facility] Zarmsyorsp7337 [place] [id number]. Garima Heraclio Platelet mean volume (Bld) [Entitic vol] 8.8 fL Critically low 9.5-13.5 [facility] Comment on above: Performed By: #### C BC ####[facility] Jwmmuqzcif6016 [place] [id number]. Garima Heraclio PLT 198 103/ul Normal 150-450 [facility] Comment on above: Performed By: #### C BC ####[facility] Jefwrcmmqz9530 [place] [id number]. Garima Heraclio RBC 4.77 106/ul Normal 4.70-6.10 [facility] Comment on above: Performed By: #### C BC ####[facility] Sphbvtiwwc0362 [place] [id number]. Garima Heraclio WBC 7.9 103/ul Normal 4.0-11.0 [facility] Comment on above: Performed By: #### C BC ####[facility] Jqpnuacspx7935 [place] [id number]. Garima Heraclio D-DIMERon 03-22-2023 D-DIMER 0.85 mg/L FEU Critically high <=0.59 [facility] Comment on above: Performed By: #### D DIM ####[facility] Vtdttiqhor3488 [place] [address]Dr. Garima Pulliam D-DIMER COMMENTS SEE BELOW Normal [facility] Comment on above: Result Comment: Incr [...] hospitalization. Performed By: #### D DIM ####[facility] Eoyduibqnd9764[address] [place], [place] [address]Dr. Garima Pulliam PROF CHEM 8 (BAS METB)on Anion gap [Moles/Vol] 6.9 mmol/L Normal [facility] Comment on above: Performed By: #### B MEAT GRADING MACHINE OPERATOR, BMP ####[facility] Vjcrtztfoj2285 [place] [address]Dr. Garima Pulliam Calcium [Mass/Vol] 8.9 mg/dL Normal 8.5-10.1 [facility] Comment on above: Performed By: #### B MEAT GRADING MACHINE OPERATOR, BMP ####[facility] Pipbjqdtfq7025 [place] [address]Dr. Garima Pulliam Chloride [Moles/Vol] 101 mmol/L Normal 98-107 [facility] Comment on above: Performed By: #### B MEAT GRADING MACHINE OPERATOR, BMP ####[facility] Iaivecxooq885[address] [place], [place] [address]Dr. Chapisrenu Heraclio CO2 [Moles/Vol] 30.7 mmol/L Normal 21.0-32.0 [facility] Comment on above: Performed By: #### B MEAT GRADING MACHINE OPERATOR, BMP ####[facility] Svwtznajsd[address] [place], [place] [address]Dr. Garima Pulliam Creatinine [Mass/Vol] 0.82 mg/dL Normal 0.70-1.30 [facility] Comment on above: Performed By: #### B MEAT GRADING MACHINE OPERATOR, BMP ####[facility] Wbuapdcldi698[address] [place], [place] [address]Dr. Garima Pulliam EGFR-AF PALAUAN >60 Normal >=60 [facility] Comment on above: Performed By: #### B MEAT GRADING MACHINE OPERATOR, BMP ####[facility] Isyaxyfuzy577[address] [place], [place] [address]Dr. Chapisrenu Heraclio EGFR-NON AF PALAUAN >60 Normal >=60 [facility] Comment on above: Performed By: #### B MEAT GRADING MACHINE OPERATOR, BMP ####[facility] Sugxiddrgo5907[address] [place], [place] [address]Dr. Garima Pulliam Glucose [Mass/Vol] 339 mg/dL Critically high 74-106 [facility] Comment on above: Performed By: #### B MEAT GRADING MACHINE OPERATOR, BMP ####[facility] Legkadjmby680[address] [place], [place] [address]Dr. Garima Pulliam Potassium [Moles/Vol] 3.6 mmol/L Normal 3.5-5.1 [facility] Comment on above: Performed By: #### B MEAT GRADING MACHINE OPERATOR, BMP ####[facility] Erpgrkuvnw0360[address] [place], [place] [address]Dr. Garima Pulliam Sodium [Moles/Vol] 135 mmol/L Critically low 136-145 [facility] Comment on above: Performed By: #### B MEAT GRADING MACHINE OPERATOR, BMP ####[facility] Vuzojfgvqe[address] [place], [place] [address]Dr. Garima Pulliam Urea nitrogen [Mass/Vol] 11.0 mg/dL Normal 7.0-18.0 [facility] Comment on above: Performed By: #### B MEAT GRADING MACHINE OPERATOR, BMP ####[facility] Qgbswipkzv6826[address] [place], [place] [address]Dr. Garima Pulliam Urea nitrogen/Creatinine [Mass ratio] 13.4 mg/mg Normal [facility] Comment on above: Performed By: #### B MEAT GRADING MACHINE OPERATOR, BMP ####[facility] Islxxvhtqo373[address] [place], [place] [address]Dr. Garima Pulliam US VERONICA DOP LEG BILon 023 US VERONICA DOP LEG BENOIT Normal [facility] BNPon 03-18-2023 Natriuretic peptide B (Bld) [Mass/Vol] 226.0 pg/mL Normal <=900.0 [facility] Comment on above: Performed By: #### B MEAT GRADING MACHINE OPERATOR, BMP ####[facility] Zjqmrwckjt611[address] [place], [place] [address]Dr. Garima Pulliam CBC AUTO DIFFon 03-18-2023 BASO # 0.0 103/ul Normal 0.0-0.1 [facility] Comment on above: Performed By: #### C BC ####[facility] Vvmqgacmkn818[address] [place], [place] [address]Dr. Garima Heraclio Basophils/100 WBC (Bld) 0.2 % Normal 0.2-2.0 [facility] Comment on above: Performed By: #### C BC ####[facility] Riftbnzupc25[address] [place], [place] [address]Dr. Garima Pulliam EO # 0.3 103/ul Normal 0.0-0.7 [facility] Comment on above: Performed By: #### C BC ####[facility] Fxejgvwgsa12[address] [place], [place] [address]Dr. Garima Heraclio Eosinophils/100 WBC (Bld) 2.5 % Normal 0.9-7.0 [facility] Comment on above: Performed By: #### C BC ####[facility] Tmildfnsmk87[address] [place], [place] [address]Dr. Garima Heraclio Erythrocyte distribution width (RBC) [Ratio] 13.2 % Normal 11.0-15.0 [facility] Comment on above: Performed By: #### C BC ####[facility] Hxziasflmv9843 [place] [address]DrAdalberto Pulliam Hematocrit (Bld) [Volume fraction] 45.8 % Normal 42.0-54.0 [facility] Comment on above: Performed By: #### C BC ####[facility] Ozfdgybndo9200 [place] [address]DrAdalberto Pulliam Hemoglobin (Bld) [Mass/Vol] 15.3 g/dL Normal 14.0-18.0 [facility] Comment on above: Performed By: #### C BC ####[facility] Jejfyhejif27[address] [place], [place] [address]DrAdalberto Pulliam IG # 0.02 10e3/ul Normal 0.00-0.03 [facility] Comment on above: Performed By: #### C BC ####[facility] Mtygdaqplf86[address] [place], [place] [address]DrAdalberto Pulliam IG % 0.2 % Normal 0.0-0.5 [facility] Comment on above: Performed By: #### C BC ####[facility] Kvpjmxquun[address] [place], [place] [address]DrAdalberto Pulliam LYMPH # 1.8 103/ul Normal 1.2-3.8 [facility] Comment on above: Performed By: #### C BC ####[facility] Szopocmnrf7540[address] [place], [place] [address]DrAdalberto Pulliam Lymphocytes/100 WBC (Bld) 18.3 % Critically low 20.5-60.0 [facility] Comment on above: Performed By: #### C BC ####[facility] Txcqyhpyci38[address] [place], [place] [address]DrAdalberto Pulliam MANUAL DIFF REQ NO Normal [place] Comment on above: Performed By: #### C BC ####[facility] Hxvwdcrsxj4903 [place] [address]DrAdalberto Pulliam MCH (RBC) [Entitic mass] 30.5 pg Normal 25.9-34.0 [facility] Comment on above: Performed By: #### C BC ####[facility] Hjgygujzcf7368 [place] [address]DrAdalberto Pulliam MCHC (RBC) [Mass/Vol] 33.4 g/dL Normal 29.9-35.2 [facility] Comment on above: Performed By: #### C BC ####[facility] Ctmlccjcax3598 [place] [address]DrAdalberto Pulliam MCV (RBC) [Entitic vol] 91.2 fL Normal 80.0-94.0 [facility] Comment on above: Performed By: #### C BC ####[facility] Qemsaxwhur29[address] [place], [place] [address]DrAdalberto Pulliam MONO # 0.8 103/ul Normal 0.3-0.8 [facility] Comment on above: Performed By: #### C BC ####[facility] Unappvrtzm548[address] [place], [place] [address]DrAdalberto Pulliam Monocytes/100 WBC (Bld) 7.6 % Normal 1.7-12.0 [facility] Comment on above: Performed By: #### C BC ####[facility] Xgwyiffcru232[address] [place], [place] [address]DrAdalberto Pulliam NEUT # 7.0 103/ul Critically high 1.4-6.5 [facility] Comment on above: Performed By: #### C BC ####[facility] Ivutdjnoxj030[address] [place], [place] [address]DrAdalberto Pulliam Neutrophils/100 WBC (Bld) 71.2 % Normal 43.0-75.0 [facility] Comment on above: Performed By: #### C BC ####[facility] Iwmujkuabn106[address] [place], [place] [address]DrAdalberto Pulliam Platelet mean volume (Bld) [Entitic vol] 8.9 fL Critically low 9.5-13.5 [facility] Comment on above: Performed By: #### C BC ####[facility] Vjfxejsfoo9[address] [place], [place] [address]DrAdalberto Pulliam PLT 217 103/ul Normal 150-450 [facility] Comment on above: Performed By: #### C BC ####[facility] Nbypcmoxiq4903 [place] [address]Dr. Garima Heraclio RBC 5.02 106/ul Normal 4.70-6.10 [facility] Comment on above: Performed By: #### C BC ####[facility] Lbkdjjdaei235[address] [place], [place] [address]Dr. Garima Pulliam WBC 9.8 103/ul Normal 4.0-11.0 [facility] Comment on above: Performed By: #### C BC ####[facility] Dluqwlnoch23[address] [place], [place] [address]Dr. Garima Heraclio CRPon 03-18-2023 CRP 0.1 mg/dL Normal <=1.0 [facility] Comment on above: Performed By: #### C RP ####[facility] Qbimsrmslx473[address] [place], [place] [address]Dr. Garima Heraclio PROF CHEM 8 (BAS METB)on Anion gap [Moles/Vol] 10.4 mmol/L Normal [facility] Comment on above: Performed By: #### B MEAT GRADING MACHINE OPERATOR, BMP ####[facility] Wtwsmumpfh[address] [place], [place] [address]Dr. Garima Heraclio Calcium [Mass/Vol] 8.8 mg/dL Normal 8.5-10.1 [facility] Comment on above: Performed By: #### B MEAT GRADING MACHINE OPERATOR, BMP ####[facility] Niwumgryzz[address] [place], [place] [address]Dr. Garima Heraclio Chloride [Moles/Vol] 97 mmol/L Critically low 98-107 [facility] Comment on above: Performed By: #### B MEAT GRADING MACHINE OPERATOR, BMP ####[facility] Wojrqctggk7[address] [place], [place] [address]Dr. Garima Pulliam CO2 [Moles/Vol] 31.2 mmol/L Normal 21.0-32.0 [facility] Comment on above: Performed By: #### B MEAT GRADING MACHINE OPERATOR, BMP ####[facility] Mhawyyhfhj[address] [place], [place] [address]Dr. Garima Pulliam Creatinine [Mass/Vol] 0.91 mg/dL Normal 0.70-1.30 [facility] Comment on above: Performed By: #### B MEAT GRADING MACHINE OPERATOR, BMP ####[facility] Qfwnxxqdst7166 [place] [address]Dr. Garima Pulliam EGFR-AF PALAUAN >60 Normal >=60 [facility] Comment on above: Performed By: #### B MEAT GRADING MACHINE OPERATOR, BMP ####[facility] Biweixxlxt7006 [place] [id number]. Garima Pulliam EGFR-NON AF PALAUAN >60 Normal >=60 [facility] Comment on above: Performed By: #### B MEAT GRADING MACHINE OPERATOR, BMP ####[facility] Wafbwttdrg5775 [place] [address]Dr. Garima Pulliam Glucose [Mass/Vol] 315 mg/dL Critically high 74-106 [facility] Comment on above: Performed By: #### B MEAT GRADING MACHINE OPERATOR, BMP ####[facility] Icucbxzlrj1936 [place] [address]Dr. Garima Pulliam Potassium [Moles/Vol] 3.6 mmol/L Normal 3.5-5.1 [facility] Comment on above: Performed By: #### B MEAT GRADING MACHINE OPERATOR, BMP ####[facility] Ydixqojrgk6836 [place] [address]Dr. Garima Pulliam Sodium [Moles/Vol] 135 mmol/L Critically low 136-145 [facility] Comment on above: Performed By: #### B MEAT GRADING MACHINE OPERATOR, BMP ####[facility] Qosykgtgvh7746 [place] [address]Dr. Garima Pulliam Urea nitrogen [Mass/Vol] 7.0 mg/dL Normal 7.0-18.0 [facility] Comment on above: Performed By: #### B MEAT GRADING MACHINE OPERATOR, BMP ####[facility] Pnhpjknhgu0140 [place] [address]Dr. Garima Pulliam Urea nitrogen/Creatinine [Mass ratio] 7.7 mg/mg Normal [facility] Comment on above: Performed By: #### B MEAT GRADING MACHINE OPERATOR, BMP ####[facility] Wspfaisnqq1812 [place] [address]Dr. Garima Pulliam SED RATE WESTERGRENon 2022 SED RATE 8 mm/hr Normal <=20 [facility] Comment on above: Performed By: #### S EDR ####[facility] [address] [place], [place] [address]Dr. Garima Pulliam BNPon 03-16-2023 Natriuretic peptide B (Bld) [Mass/Vol] 241.0 pg/mL Normal <=900.0 [facility] Comment on above: Performed By: #### B MEAT GRADING MACHINE OPERATOR, BMP, HSTROPN ####[facility] Ncibwrijzk[address] [place], [place] [address]Dr. Garima Heraclio CBC AUTO DIFFon 03-16-2023 BASO # 0.0 103/ul Normal 0.0-0.1 [facility] Comment on above: Performed By: #### C BC ####[facility] Qpqritirkd94[address] [place], [place] [address]Dr. Chapisrenu Pulliam Basophils/100 WBC (Bld) 0.2 % Normal 0.2-2.0 [facility] Comment on above: Performed By: #### C BC ####[facility] Iuflfpurnr[address] [place], [place] [address]Dr. Garima Pulliam EO # 0.2 103/ul Normal 0.0-0.7 [facility] Comment on above: Performed By: #### C BC ####[facility] Izwhzedtcl[address] [place], [place] [address]Dr. Chapisrenu Pulliam Eosinophils/100 WBC (Bld) 2.7 % Normal 0.9-7.0 [facility] Comment on above: Performed By: #### C BC ####[facility] Vpaxdvxxqa[address] [place], [place] [address]Dr. Garima Pulliam Erythrocyte distribution width (RBC) [Ratio] 13.1 % Normal 11.0-15.0 [facility] Comment on above: Performed By: #### C BC ####[facility] Pukcvlssgo[address] [place], [place] [address]Dr. Garima Pulliam Hematocrit (Bld) [Volume fraction] 41.8 % Critically low 42.0-54.0 [facility] Comment on above: Performed By: #### C BC ####[facility] [address]rtdpms[address] [place] [address]Dr. Garima Pulliam Hemoglobin (Bld) [Mass/Vol] 14.0 g/dL Normal 14.0-18.0 [facility] Comment on above: Performed By: #### C BC ####[facility] Lbqympcwaj10[address] [place] [address]Dr. Garima Pulliam IG # 0.03 10e3/ul Normal 0.00-0.03 [facility] Comment on above: Performed By: #### C BC ####[facility] Aorecepbmg6156 [place] [address]Dr. Garima Pulliam IG % 0.3 % Normal 0.0-0.5 [facility] Comment on above: Performed By: #### C BC ####[facility] Yywdtsumzo[address] [place], [place] [address]Dr. Chapisrenu Pulliam LYMPH # 2.1 103/ul Normal 1.2-3.8 [facility] Comment on above: Performed By: #### C BC ####[facility] Iahqygcgxr[address] [place], [place] [address]Dr. Chapisrenu Pulliam Lymphocytes/100 WBC (Bld) 24.2 % Normal 20.5-60.0 [facility] Comment on above: Performed By: #### C BC ####[facility] Ajqbuwrwbj6[address] [place] [address]Dr. Garima Pulliam MANUAL DIFF REQ NO Normal [place] Comment on above: Performed By: #### C BC ####[facility] Zpepdrskme2957 [place] [address]Dr. Garima Pulliam MCH (RBC) [Entitic mass] 30.2 pg Normal 25.9-34.0 [facility] Comment on above: Performed By: #### C BC ####[facility] Mardfaboiy3328 [place] [address]Dr. Garima Pulliam MCHC (RBC) [Mass/Vol] 33.5 g/dL Normal 29.9-35.2 [facility] Comment on above: Performed By: #### C BC ####[facility] [address]fevbvkhwv8243 [place] [id number]. Garima Pulliam MCV (RBC) [Entitic vol] 90.1 fL Normal 80.0-94.0 [facility] Comment on above: Performed By: #### C BC ####[facility] Hqvrktfjnk5433 [place] [id number]. Garima Pulliam MONO # 0.6 103/ul Normal 0.3-0.8 [facility] Comment on above: Performed By: #### C BC ####[facility] Ohzzsbfmot4259 [place] [address]Dr. Garima Heraclio Monocytes/100 WBC (Bld) 7.4 % Normal 1.7-12.0 [facility] Comment on above: Performed By: #### C BC ####[facility] Aocdqruknx[address] [place], [place] [address]Dr. Garima Pulliam NEUT # 5.6 103/ul Normal 1.4-6.5 [facility] Comment on above: Performed By: #### C BC ####[facility] Dqtpspanoi18[address] [place], [place] [address]Dr. Garima Heraclio Neutrophils/100 WBC (Bld) 65.2 % Normal 43.0-75.0 [facility] Comment on above: Performed By: #### C BC ####[facility] Tiwcpofkhw1594 [place] [phone]. Garima Heraclio Platelet mean volume (Bld) [Entitic vol] 8.7 fL Critically low 9.5-13.5 [facility] Comment on above: Performed By: #### C BC ####[facility] Xfddxuzbtp[address] [place], [place] [id number]. Garima Heraclio PLT 195 103/ul Normal 150-450 [facility] Comment on above: Performed By: #### C BC ####[facility] Abrkcfxuhn9454 [place] [phone]. Garima Pulliam RBC 4.64 106/ul Critically low 4.70-6.10 [facility] Comment on above: Performed By: #### C BC ####[facility] Fvirjegqyd7454 [place] [address]Dr. Garima Pulliam WBC 8.6 103/ul Normal 4.0-11.0 [facility] Comment on above: Performed By: #### C BC ####[facility] Uqxlixkuar8227 [place] [address]Dr. Garima Pulliam PROF CHEM 8 (BAS METB)on Anion gap [Moles/Vol] 6.7 mmol/L Normal [facility] Comment on above: Performed By: #### B MEAT GRADING MACHINE OPERATOR, BMP, HSTROPN ####[facility] Gkectzbmhq5379 [place] [address]Dr. Garima Pulliam Calcium [Mass/Vol] 8.8 mg/dL Normal 8.5-10.1 [facility] Comment on above: Performed By: #### B MEAT GRADING MACHINE OPERATOR, BMP, HSTROPN ####[facility] Vagcwpdaug7[address] [place], [place] [address]Dr. Garima Pulliam Chloride [Moles/Vol] 106 mmol/L Normal 98-107 [facility] Comment on above: Performed By: #### B MEAT GRADING MACHINE OPERATOR, BMP, HSTROPN ####[facility] Ydzsqowdyw15[address] [place], [place] [address]Dr. Garima Pulliam CO2 [Moles/Vol] 31.4 mmol/L Normal 21.0-32.0 [facility] Comment on above: Performed By: #### B MEAT GRADING MACHINE OPERATOR, BMP, HSTROPN ####[facility] Btbtofznxo[address] [place], [place] [address]Dr. Garima Pulliam Creatinine [Mass/Vol] 0.75 mg/dL Normal 0.70-1.30 [facility] Comment on above: Performed By: #### B MEAT GRADING MACHINE OPERATOR, BMP, HSTROPN ####[facility] Asztbkmgpj4504 [place] [address]Dr. Garima Pulliam EGFR-AF PALAUAN >60 Normal >=60 [facility] Comment on above: Performed By: #### B MEAT GRADING MACHINE OPERATOR, BMP, HSTROPN ####[facility] Lrpwcrcrnz1164 [place] [address]Dr. Garima Pulliam EGFR-NON AF PALAUAN >60 Normal >=60 [facility] Comment on above: Performed By: #### B MEAT GRADING MACHINE OPERATOR, BMP, HSTROPN ####[facility] Izntqoipao0916 [place] [address]Dr. Garima Pulliam Glucose [Mass/Vol] 161 mg/dL Critically high 74-106 [facility] Comment on above: Performed By: #### B MEAT GRADING MACHINE OPERATOR, BMP, HSTROPN ####[facility] Meksgwtnzk6350 [place] [address]Dr. Garima Pulliam Potassium [Moles/Vol] 4.1 mmol/L Normal 3.5-5.1 [facility] Comment on above: Performed By: #### B MEAT GRADING MACHINE OPERATOR, BMP, HSTROPN ####[facility] Pnvujdoscs3019 [place] [address]Dr. Garima Pulliam Sodium [Moles/Vol] 140 mmol/L Normal 136-145 [facility] Comment on above: Performed By: #### B MEAT GRADING MACHINE OPERATOR, BMP, HSTROPN ####[facility] Hiygvytken1459 [place] [address]Dr. Garima Pulliam Urea nitrogen [Mass/Vol] 7.0 mg/dL Normal 7.0-18.0 [facility] Comment on above: Performed By: #### B MEAT GRADING MACHINE OPERATOR, BMP, HSTROPN ####[facility] Ivppifnmcr8293 [place] [address]Dr. Garima Pulliam Urea nitrogen/Creatinine [Mass ratio] 9.3 mg/mg Normal [facility] Comment on above: Performed By: #### B MEAT GRADING MACHINE OPERATOR, BMP, HSTROPN ####[facility] Fporltrzvg8740 [place] [address]Dr. Garima Pulliam TROPONIN, HIGH SENSITIVITYon 03-16-2023 HSTROP 9.7 pg/mL Normal 4.0-76.1 [facility] Comment on above: Result Comment: CUT- OFF POINTS HAVE BEEN ESTABLISHED BASED ON THE FOURTH UNIVERSAL DEFINITIONS OF MYOCARDIALINFARCTION. THE UPPER REFERENCE LIMIT (URL) OF TROPONIN, DEFINED THE 99TH PERCENTILE OFcTnI DISTRIBUTION IN A REFERENCE POPULATION, HAS BEEN CONFIRMED THE DECISION THRESHOLDFOR NV DIAGNOSIS. Performed By: #### B MEAT GRADING MACHINE OPERATOR, BMP, HSTROPN ####[facility] Vpqpqarhsv8337 [place] [address]Dr. Garima Pulliam XR CHEST 1 Von 03-16-2023 XR CHEST 1 V Normal [facility] BNPon 03-06-2023 Natriuretic peptide B (Bld) [Mass/Vol] 111.0 pg/mL Normal <=900.0 [facility] Comment on above: Performed By: #### C MP, BNP, CK ####[facility] Cqorjxctpz5140 [place] [address]Dr. Chapisrenu Pulliam CBC AUTO DIFFon 03-06-2023 BASO # 0.0 103/ul Normal 0.0-0.1 [facility] Comment on above: Performed By: #### C BC ####[facility] Zuvo[address]ouare[address] [place], [place] [address]Dr. Garima Pulliam Basophils/100 WBC (Bld) 0.2 % Normal 0.2-2.0 [facility] Comment on above: Performed By: #### C BC ####[facility] Nifzgwcaql[address] [place], [place] [address]Dr. Garima Pulliam EO # 0.3 103/ul Normal 0.0-0.7 [facility] Comment on above: Performed By: #### C BC ####[facility] T[address]llsthwd8[address] [place], [place] [address]Dr. Garima Pulliam Eosinophils/100 WBC (Bld) 3.5 % Normal 0.9-7.0 [facility] Comment on above: Performed By: #### C BC ####[facility] Gqxsdouiim[address] [place], [place] [address]Dr. Garima Pulliam Erythrocyte distribution width (RBC) [Ratio] 13.3 % Normal 11.0-15.0 [facility] Comment on above: Performed By: #### C BC ####[facility] Nykfuahvtf[address] [place], [place] [address]Dr. Gairma Pulliam Hematocrit (Bld) [Volume fraction] 43.7 % Normal 42.0-54.0 [facility] Comment on above: Performed By: #### C BC ####[facility] Soizkcntmw8587 [place] [address]Dr. Garima Pulliam Hemoglobin (Bld) [Mass/Vol] 14.7 g/dL Normal 14.0-18.0 [facility] Comment on above: Performed By: #### C BC ####[facility] Rksdslsydq7253 [place] [address]Dr. Chapisrenu Heraclio IG # 0.03 10e3/ul Normal 0.00-0.03 [facility] Comment on above: Performed By: #### C BC ####[facility] Elnilqioru[address] [place], [place] [address]Dr. Garima Pulliam IG % 0.4 % Normal 0.0-0.5 [facility] Comment on above: Performed By: #### C BC ####[facility] Gprbulsvis[address] [place], [place] [address]Dr. Garima Pulliam LYMPH # 2.0 103/ul Normal 1.2-3.8 [facility] Comment on above: Performed By: #### C BC ####[facility] Ajeqfcnjjz7[address] [place], [place] [address]DrAdalberto Pulliam Lymphocytes/100 WBC (Bld) 23.7 % Normal 20.5-60.0 [facility] Comment on above: Performed By: #### C BC ####[facility] Yvszzclgmz1770 [place] [address]Dr. Garima Pulliam MANUAL DIFF REQ NO Normal [place] Comment on above: Performed By: #### C BC ####[facility] Mcrpeubcel3895 [place] [phone] Pulliam MCH (RBC) [Entitic mass] 30.1 pg Normal 25.9-34.0 [facility] Comment on above: Performed By: #### C BC ####[facility] Soyunxcwgj5034 [place] [phone]. Garima Pulliam MCHC (RBC) [Mass/Vol] 33.6 g/dL Normal 29.9-35.2 [facility] Comment on above: Performed By: #### C BC ####[facility] Yqrmnznzhy3881 [place] [address]Dr. Garima Heraclio MCV (RBC) [Entitic vol] 89.4 fL Normal 80.0-94.0 [facility] Comment on above: Performed By: #### C BC ####[facility] Bblltmrwge2837 [place] [address]Dr. Garima Pulliam MONO # 0.8 103/ul Normal 0.3-0.8 [facility] Comment on above: Performed By: #### C BC ####[facility] Ipvtmybjcf7521 [place] [address]Dr. Garima Pulliam Monocytes/100 WBC (Bld) 9.0 % Normal 1.7-12.0 [facility] Comment on above: Performed By: #### C BC ####[facility] [address]au[address]ls[address] [place], [place] [address]Dr. Garima Pulliam NEUT # 5.4 103/ul Normal 1.4-6.5 [facility] Comment on above: Performed By: #### C BC ####[facility] Ezunfkaabv[address] [place], [place] [address]Dr. Garima Pulliam Neutrophils/100 WBC (Bld) 63.2 % Normal 43.0-75.0 [facility] Comment on above: Performed By: #### C BC ####[facility] [address]ajhqjef[address] [place], [place] [address]Dr. Garima Pulliam Platelet mean volume (Bld) [Entitic vol] 9.0 fL Critically low 9.5-13.5 [facility] Comment on above: Performed By: #### C BC ####[facility] Kxrudldfli[address] [place], [place] [address]Dr. Garima Pulliam PLT 218 103/ul Normal 150-450 [facility] Comment on above: Performed By: #### C BC ####[facility] Kwmerwnagk1303 [place] [phone]. Garima Pulliam RBC 4.89 106/ul Normal 4.70-6.10 [facility] Comment on above: Performed By: #### C BC ####[facility] Kgeccwvzla8545 [place] [address]Dr. Garima Pulliam WBC 8.5 103/ul Normal 4.0-11.0 [facility] Comment on above: Performed By: #### C BC ####[facility] Ejbauqsdpc2664 [place] [address]Dr. Garima Pulliam CPKon 03-06-2023 CK [Catalytic activity/Vol] 191 U/L Normal 39-308 [facility] Comment on above: Performed By: #### C MP, BNP, CK ####[facility] Oghthvaiwm7659 [place] [address]Dr. Garima Pulliam PROF 14(COMP METB)on 023 Albumin [Mass/Vol] 3.6 g/dL Normal 3.4-5.0 [facility] Comment on above: Performed By: #### C MP, BNP, CK ####[facility] Rmcyrkhria8481 [place] [address]Dr. Garima Pulliam Albumin/Globulin [Mass ratio] 1.2 {ratio} Normal [facility] Comment on above: Performed By: #### C MP, BNP, CK ####[facility] Szdwnhhfmm2846 [place] [address]Dr. Garima Pulliam ALP [Catalytic activity/Vol] 91 U/L Normal 46-116 [facility] Comment on above: Performed By: #### C MP, BNP, CK ####[facility] Tsqxnfcbzz3957 [place] [address]Dr. Garima Pulliam ALT [Catalytic activity/Vol] 33 U/L Normal 16-63 [facility] Comment on above: Performed By: #### C MP, BNP, CK ####[facility] Qpkhaazzgm5050 [place] [address]Dr. Garima Pulliam Anion gap [Moles/Vol] 10.3 mmol/L Normal [facility] Comment on above: Performed By: #### C MP, BNP, CK ####[facility] Cmnalcgvdx3441 [place] [address]Dr. Garima Pulliam AST [Catalytic activity/Vol] 17 U/L Normal 15-37 [facility] Comment on above: Performed By: #### C MP, BNP, CK ####[facility] Hnwrmgriff9885 [place] [address]Dr. Garima Pulliam Bilirubin [Mass/Vol] 0.4 mg/dL Normal 0.2-1.0 [facility] Comment on above: Performed By: #### C MP, BNP, CK ####[facility] Xyspsnxtwd9390 [place] [address]Dr. Garima Pulliam Calcium [Mass/Vol] 9.1 mg/dL Normal 8.5-10.1 [facility] Comment on above: Performed By: #### C MP, BNP, CK ####[facility] Bbhjfzhkii4482 [place] [address]Dr. Garima Pulliam Chloride [Moles/Vol] 102 mmol/L Normal 98-107 [facility] Comment on above: Performed By: #### C MP, BNP, CK ####[facility] Lsrwapsmws7806 [place] [address]Dr. Garima Pulliam CO2 [Moles/Vol] 29.7 mmol/L Normal 21.0-32.0 [facility] Comment on above: Performed By: #### C MP, BNP, CK ####[facility] Nublmycgan7062 [place] [address]Dr. Garima Pulliam Creatinine [Mass/Vol] 0.79 mg/dL Normal 0.70-1.30 [facility] Comment on above: Performed By: #### C MP, BNP, CK ####[facility] Neuoktuclc9359 [place] [address]Dr. Garima Pulliam EGFR-AF PALAUAN >60 Normal >=60 [facility] Comment on above: Performed By: #### C MP, BNP, CK ####[facility] Wbacffaday4686 [place] [address]Dr. Garima Pulliam EGFR-NON AF PALAUAN >60 Normal >=60 [facility] Comment on above: Performed By: #### C MP, BNP, CK ####[facility] Sgnbpuyjvk9817 [place] [address]Dr. Garima Pulliam Globulin (S) [Mass/Vol] 3.0 g/dL Normal [facility] Comment on above: Performed By: #### C MP, BNP, CK ####[facility] Lucukilpuc1835 [place] [address]Dr. Garima Pulliam Glucose [Mass/Vol] 202 mg/dL Critically high 74-106 [facility] Comment on above: Performed By: #### C MP, BNP, CK ####[facility] Xavlqwlqac1615 [place] [address]Dr. Garima Pulliam Potassium [Moles/Vol] 4.0 mmol/L Normal 3.5-5.1 [facility] Comment on above: Performed By: #### C MP, BNP, CK ####[facility] Petypuyltp3883 [place] [address]Dr. Garima Pulliam Protein [Mass/Vol] 6.6 g/dL Normal 6.4-8.2 [facility] Comment on above: Performed By: #### C MP, BNP, CK ####[facility] Rlckqncdhk8[address] [place], [place] [address]Dr. Garima Pulliam Sodium [Moles/Vol] 138 mmol/L Normal 136-145 [facility] Comment on above: Performed By: #### C MP, BNP, CK ####[facility] Bypomhitok[address] [place], [place] [address]Dr. Garima Pulliam Urea nitrogen [Mass/Vol] 10.0 mg/dL Normal 7.0-18.0 [facility] Comment on above: Performed By: #### C MP, BNP, CK ####[facility] Kuesupbgjx8761 [place] [address]Dr. Garima Pulliam Urea nitrogen/Creatinine [Mass ratio] 12.7 mg/mg Normal [facility] Comment on above: Performed By: #### C MP, BNP, CK ####[facility] Gkbfmmbfpl0171 [place] [address]Dr. Garima Pulliam US VERONICA DOP LEG BILon 023 US VERONICA DOP LEG BENOIT Normal [facility] CBC AUTO DIFFon 01-13-2023 BASO # 0.0 103/ul Normal 0.0-0.1 [facility] Comment on above: Performed By: #### C BC ####[facility] Yepijnaogb7175 [place] [phone]. Chapisrenu Pulliam Basophils/100 WBC (Bld) 0.0 % Critically low 0.2-2.0 [facility] Comment on above: Performed By: #### C BC ####[facility] Nftczfkmjr4055 [place] [address]Dr. Garima Pulliam EO # 0.0 103/ul Normal 0.0-0.7 [facility] Comment on above: Performed By: #### C BC ####[facility] Xfojvqbcmb[address] [place], [place] [address]Dr. Garima Pulliam Eosinophils/100 WBC (Bld) 0.0 % Critically low 0.9-7.0 [facility] Comment on above: Performed By: #### C BC ####[facility] Xdphngiqcd5795 [place] [address]Dr. Garima Pulliam Erythrocyte distribution width (RBC) [Ratio] 13.2 % Normal 11.0-15.0 [facility] Comment on above: Performed By: #### C BC ####[facility] Pttjpawpaa[address] [place], [place] [address]Dr. Garima Pulliam Hematocrit (Bld) [Volume fraction] 46.7 % Normal 42.0-54.0 [facility] Comment on above: Performed By: #### C BC ####[facility] Jnycwnzvjg[address] [place], [place] [address]Dr. Garima Pulliam Hemoglobin (Bld) [Mass/Vol] 15.6 g/dL Normal 14.0-18.0 [facility] Comment on above: Performed By: #### C BC ####[facility] Cenliaiyno[address] [place], [place] [address]Dr. Garima Pulliam IG # 0.01 10e3/ul Normal 0.00-0.03 [facility] Comment on above: Performed By: #### C BC ####[facility] Mztsnimolf1882 [place] [id number]. Garima Pulliam IG % 0.2 % Normal 0.0-0.5 [facility] Comment on above: Performed By: #### C BC ####[facility] Rdgvhaakor2365 [place] [id number]. Garima Pulliam LYMPH # 0.8 103/ul Critically low 1.2-3.8 [facility] Comment on above: Performed By: #### C BC ####[facility] Hhpbgimodt2532 [place] [phone]. Garima Pulliam Lymphocytes/100 WBC (Bld) 12.7 % Critically low 20.5-60.0 [facility] Comment on above: Performed By: #### C BC ####[facility] Lgmhpwwpba3403 [place] [address]Dr. Garima Pulliam MANUAL DIFF REQ NO Normal [place] Comment on above: Performed By: #### C BC ####[facility] Pliwlcbneo1212 [place] [phone]. Garima Pulliam MCH (RBC) [Entitic mass] 30.2 pg Normal 25.9-34.0 [facility] Comment on above: Performed By: #### C BC ####[facility] Hlbuoneanc2413 [place] [phone]. Garima Pulliam MCHC (RBC) [Mass/Vol] 33.4 g/dL Normal 29.9-35.2 [facility] Comment on above: Performed By: #### C BC ####[facility] Meokxmcfkt8830 [place] [phone]. Garima Pulliam MCV (RBC) [Entitic vol] 90.3 fL Normal 80.0-94.0 [facility] Comment on above: Performed By: #### C BC ####[facility] Onjlwsxgzo4198 [place] [phone]. Garima Heraclio MONO # 0.1 103/ul Critically low 0.3-0.[address] [facility] Comment on above: Performed By: #### C BC ####[facility] Mxvbhirzfa0641 [place] [phone]. Garima Pulliam Monocytes/100 WBC (Bld) 0.9 % Critically low 1.7-12.0 [facility] Comment on above: Performed By: #### C BC ####[facility] Ikaytlrdgj3367 [place] [phone]. Garima Pulliam NEUT # 5.6 103/ul Normal 1.4-6.5 [facility] Comment on above: Performed By: #### C BC ####[facility] Doozmewwem6729 [place] [phone]. Garima Pulliam Neutrophils/100 WBC (Bld) 86.2 % Critically high 43.0-75.0 [facility] Comment on above: Performed By: #### C BC ####[facility] Eszfboayps6200 [place] [address]Dr. Garima Pulliam Platelet mean volume (Bld) [Entitic vol] 9.1 fL Critically low 9.5-13.5 [facility] Comment on above: Performed By: #### C BC ####[facility] [address]sgolllsgk[address] [place], [place] [address]Dr. Garima Pulliam PLT 169 103/ul Normal 150-450 [facility] Comment on above: Performed By: #### C BC ####[facility] Fcyolhukcj[address] [place], [place] [address]Dr. Garima Pulliam RBC 5.17 106/ul Normal 4.70-6.10 [facility] Comment on above: Performed By: #### C BC ####[facility] [address]xcrslrz[address] [place], [place] [phone]. Garima Pulliam WBC 6.5 103/ul Normal 4.0-11.0 [facility] Comment on above: Performed By: #### C BC ####[facility] F[address]qtpwbclr[address] [place], [place] [address]Dr. Garima Pulliam D-DIMERon 01-13-2023 D-DIMER 0.41 mg/L FEU Normal <=0.59 [facility] Comment on above: Performed By: #### D DIM ####[facility] Ezswcbfhyf4970 [place] [address]Dr. Garima Pulliam D-DIMER COMMENTS SEE BELOW Normal [facility] Comment on above: Result Comment: Incr eases [...] hospitalization. Performed By: #### D DIM ####[facility] Nlxibgogzc99[address] [place], [place] [address]Dr. Garima Pulliam PROF 14(COMP METB)on 023 Albumin [Mass/Vol] 3.4 g/dL Normal 3.4-5.0 [facility] Comment on above: Performed By: #### C MP ####[facility] [address]fthuxzbmz[address] [place], [place] [address]Dr. Garima Pulliam Albumin/Globulin [Mass ratio] 1.3 {ratio} Normal [facility] Comment on above: Performed By: #### C MP ####[facility] Hulyvbpspu[address] [place], [place] [address]Dr. Garima Pulliam ALP [Catalytic activity/Vol] 83 U/L Normal 46-116 [facility] Comment on above: Performed By: #### C MP ####[facility] Ymbntalqrf[address] [place], [place] [address]Dr. Garima Pulliam ALT [Catalytic activity/Vol] 25 U/L Normal 16-63 [facility] Comment on above: Performed By: #### C MP ####[facility] [address]qhtsb[address] [place] [address]Dr. Garima Pulliam Anion gap [Moles/Vol] 14.5 mmol/L Normal [facility] Comment on above: Performed By: #### C MP ####[facility] Pfmumpxljl05[address] [place], [place] [address]Dr. Garima Pulliam AST [Catalytic activity/Vol] 19 U/L Normal 15-37 [facility] Comment on above: Performed By: #### C MP ####[facility] Osmqopctok6[address] [place], [place] [address]Dr. Garima Pulliam Bilirubin [Mass/Vol] 0.4 mg/dL Normal 0.2-1.0 [facility] Comment on above: Performed By: #### C MP ####[facility] Qqbjoljbbc90[address] [place], [place] [address]Dr. Garima Pulliam Calcium [Mass/Vol] 8.7 mg/dL Normal 8.5-10.1 [facility] Comment on above: Performed By: #### C MP ####[facility] Ejkbvbjsyo[address] [place], [place] [address]Dr. Garima Pulliam Chloride [Moles/Vol] 104 mmol/L Normal 98-107 [facility] Comment on above: Performed By: #### C MP ####[facility] Fmmshdxsmd8[address] [place], [place] [address]Dr. Garima Pulliam CO2 [Moles/Vol] 24.5 mmol/L Normal 21.0-32.0 [facility] Comment on above: Performed By: #### C MP ####[facility] Pklnscoobs77[address] [place], [place] [address]Dr. Garima Pulliam Creatinine [Mass/Vol] 0.70 mg/dL Normal 0.70-1.30 [facility] Comment on above: Performed By: #### C MP ####[facility] Mbwduoklft50[address] [place], [place] [address]Dr. Garima Heraclio EGFR-AF PALAUAN >60 Normal >=60 [facility] Comment on above: Performed By: #### C MP ####[facility] Jkykvrrhkg4926[address] [place], [place] [address]Dr. Chapisrenu Heraclio EGFR-NON AF PALAUAN >60 Normal >=60 [facility] Comment on above: Performed By: #### C MP ####[facility] Uykmwiwyot8213[address] [place], [place] [address]Dr. Chapisrenu Pulliam Globulin (S) [Mass/Vol] 2.6 g/dL Normal [facility] Comment on above: Performed By: #### C MP ####[facility] Ulimcxorrj8[address] [place] [address]Dr. Garima Pulliam Glucose [Mass/Vol] 196 mg/dL Critically high 74-106 [facility] Comment on above: Performed By: #### C MP ####[facility] Sbhsdfxfsq5355 [place] [address]Dr. Garima Pulliam Potassium [Moles/Vol] 4.0 mmol/L Normal 3.5-5.1 [facility] Comment on above: Performed By: #### C MP ####[facility] Nsendkeccy8194 [place] [address]Dr. Garima Pulliam Protein [Mass/Vol] 6.0 g/dL Critically low 6.4-8.2 [facility] Comment on above: Performed By: #### C MP ####[facility] Zmhefglbkg03[address] [place], [place] [address]Dr. Garima Pulliam Sodium [Moles/Vol] 139 mmol/L Normal 136-145 [facility] Comment on above: Performed By: #### C MP ####[facility] Smthzsrvft5[address] [place], [place] [address]Dr. Garima Pulliam Urea nitrogen [Mass/Vol] 7.0 mg/dL Normal 7.0-18.0 [facility] Comment on above: Performed By: #### C MP ####[facility] Ptkmjzcppg8313[address] [place], [place] [address]Dr. Garima Heraclio Urea nitrogen/Creatinine [Mass ratio] 10.0 mg/mg Normal [facility] Comment on above: Performed By: #### C MP ####[facility] Msxoquldzj300[address] [place], [place] [address]Dr. Garima Heraclio BNPon 01-12-2023 Natriuretic peptide B (Bld) [Mass/Vol] 141.0 pg/mL Normal <=900.0 [facility] Comment on above: Performed By: #### C MP, BNP, HSTROPN ####[facility] Sgguqekpxy004[address] [place], [place] [address]Dr. Garima Heraclio CBC AUTO DIFFon 01-12-2023 BASO # 0.0 103/ul Normal 0.0-0.1 [facility] Comment on above: Performed By: #### C BC ####[facility] Ddgqvduuvy2321 [place] [id number]. Garima Heraclio Basophils/100 WBC (Bld) 0.2 % Normal 0.2-2.0 [facility] Comment on above: Performed By: #### C BC ####[facility] Mfappcusmi2457 [place] [address]Dr. Garima Heraclio EO # 0.2 103/ul Normal 0.0-0.7 [facility] Comment on above: Performed By: #### C BC ####[facility] Uhqcwhqdng8976 [place] [address]Dr. Garima Heraclio Eosinophils/100 WBC (Bld) 2.7 % Normal 0.9-7.0 [facility] Comment on above: Performed By: #### C BC ####[facility] Evunaqunyp205[address] [place], [place] [address]Dr. Garima Pulliam Erythrocyte distribution width (RBC) [Ratio] 13.3 % Normal 11.0-15.0 [facility] Comment on above: Performed By: #### C BC ####[facility] Esxvirmbex[address] [place], [place] [address]Dr. Garima Pulliam Hematocrit (Bld) [Volume fraction] 42.3 % Normal 42.0-54.0 [facility] Comment on above: Performed By: #### C BC ####[facility] Yyosvffiyv9[address] [place], [place] [address]Dr. Garima Pulliam Hemoglobin (Bld) [Mass/Vol] 14.3 g/dL Normal 14.0-18.0 [facility] Comment on above: Performed By: #### C BC ####[facility] Bbbecufvmb9933[address] [place], [place] [address]Dr. Garima Pulliam IG # 0.02 10e3/ul Normal 0.00-0.03 [facility] Comment on above: Performed By: #### C BC ####[facility] Uetsivbvdp3759 [place] [id number]. Garima Pulliam IG % 0.2 % Normal 0.0-0.5 [facility] Comment on above: Performed By: #### C BC ####[facility] Fbxlhjhvti1673 [place] [id number]. Garima Pulliam LYMPH # 2.6 103/ul Normal 1.2-3.8 [facility] Comment on above: Performed By: #### C BC ####[facility] Rjkerbtecc9743 [place] [id number]. Garima Heraclio Lymphocytes/100 WBC (Bld) 29.6 % Normal 20.5-60.0 [facility] Comment on above: Performed By: #### C BC ####[facility] Ralewzwqma2182 [place] [address]Dr. Garima Heraclio MANUAL DIFF REQ NO Normal [facility] Comment on above: Performed By: #### C BC ####[facility] Iydtnuefsy7594 [place] [id number]. Garima Pulliam MCH (RBC) [Entitic mass] 30.2 pg Normal 25.9-34.0 [facility] Comment on above: Performed By: #### C BC ####[facility] Qwebictlta6245 [place] [address]Dr. Garima Pulliam MCHC (RBC) [Mass/Vol] 33.8 g/dL Normal 29.9-35.2 [facility] Comment on above: Performed By: #### C BC ####[facility] Xfqybxxvpl1270 [place] [phone]. Garima Pulliam MCV (RBC) [Entitic vol] 89.2 fL Normal 80.0-94.0 [facility] Comment on above: Performed By: #### C BC ####[facility] Fedckjuudo186[address] [place], [place] [address]Dr. Chapisrenu Pulliam MONO # 0.7 103/ul Normal 0.3-0.8 [facility] Comment on above: Performed By: #### C BC ####[facility] Aqjrxnydsx6951 [place] [id number]. Garima Pulliam Monocytes/100 WBC (Bld) 8.3 % Normal 1.7-12.0 [facility] Comment on above: Performed By: #### C BC ####[facility] Hnjxsbizsz3367 [place] [phone]. Garima Pulliam NEUT # 5.1 103/ul Normal 1.4-6.5 [facility] Comment on above: Performed By: #### C BC ####[facility] Gmqzcmzuaz6332 [place] [phone]. aGrima Pulliam Neutrophils/100 WBC (Bld) 59.0 % Normal 43.0-75.0 [facility] Comment on above: Performed By: #### C BC ####[facility] Wpckjtwrac8311 [place] [address]Dr. Garima Pulliam Platelet mean volume (Bld) [Entitic vol] 8.7 fL Critically low 9.5-13.5 [facility] Comment on above: Performed By: #### C BC ####[facility] Ynlydfurgr5556 [place] [address]Dr. Garima Pulliam PLT 182 103/ul Normal 150-450 [facility] Comment on above: Performed By: #### C BC ####[facility] Sgbwbtptzl6574 [place] [phone]. Garima Pulliam RBC 4.74 106/ul Normal 4.70-6.10 [facility] Comment on above: Performed By: #### C BC ####[facility] [address]pt[address] [place], [place] [id number]. Garima Pulliam WBC 8.7 103/ul Normal 4.0-11.0 [facility] Comment on above: Performed By: #### C BC ####[facility] Gxybjlmjxe01[address] [place], [place] [address]Dr. Garima Pulliam Covid-19 PCR (CVDTB)on 12-25 SARS-CoV-2 (COVID-19) RNA MARIE+probe Ql (Unsp spec) Not detected Normal NOT DETECTED [facility] Comment on above: Result Comment: When [...] for this test is supported by the Division Traffic Superintendent of Health and Human Service's declaration that [...] used). Performed By: #### C VDTBH ####[facility] Lndrynhslt06[address] [place] [address]Dr. Garima Pulliam PROF 14(COMP METB)on 023 Albumin [Mass/Vol] 3.6 g/dL Normal 3.4-5.0 [facility] Comment on above: Performed By: #### C MP, BNP, HSTROPN ####[facility] Qhducmqaqy7271 [place] [address]Dr. Garima Pulliam Albumin/Globulin [Mass ratio] 1.5 {ratio} Normal [facility] Comment on above: Performed By: #### C MP, BNP, HSTROPN ####[facility] Wfkdirtlfh9988 [place] [address]Dr. Garima Pulliam ALP [Catalytic activity/Vol] 79 U/L Normal 46-116 [facility] Comment on above: Performed By: #### C MP, BNP, HSTROPN ####[facility] Iwmlbhvytm0410 [place] [address]Dr. Garima Pulliam ALT [Catalytic activity/Vol] 27 U/L Normal 16-63 [facility] Comment on above: Performed By: #### C MP, BNP, HSTROPN ####[facility] Foipkurtob[address]86 [place] [address]Dr. Garima Pulliam Anion gap [Moles/Vol] 11.7 mmol/L Normal [facility] Comment on above: Performed By: #### C MP, BNP, HSTROPN ####[facility] Hrbrxatiea7191 [place] [address]Dr. Garima Pulliam AST [Catalytic activity/Vol] 21 U/L Normal 15-37 [facility] Comment on above: Performed By: #### C MP, BNP, HSTROPN ####[facility] Rogpfwxrkt0839 [place] [address]Dr. Garima Pulliam Bilirubin [Mass/Vol] 0.3 mg/dL Normal 0.2-1.0 [facility] Comment on above: Performed By: #### C MP, BNP, HSTROPN ####[facility] Eakxtmrgkn7460 [place] [address]Dr. Garima Pulliam Calcium [Mass/Vol] 8.9 mg/dL Normal 8.5-10.1 [facility] Comment on above: Performed By: #### C MP, BNP, HSTROPN ####[facility] Cnfhldtcsn4826 [place] [address]Dr. Garima Pulliam Chloride [Moles/Vol] 107 mmol/L Normal 98-107 [facility] Comment on above: Performed By: #### C MP, BNP, HSTROPN ####[facility] Mzpzkodmtt1557 [place] [address]Dr. Garima Pulliam CO2 [Moles/Vol] 26.0 mmol/L Normal 21.0-32.0 [facility] Comment on above: Performed By: #### C MP, BNP, HSTROPN ####[facility] Kmrydqcbbl8696 [place] [address]Dr. Garima Pulliam Creatinine [Mass/Vol] 0.65 mg/dL Critically low 0.70-1.30 [facility] Comment on above: Performed By: #### C MP, BNP, HSTROPN ####[facility] Vopbtttrlf2244 [place] [address]Dr. Yilan Pulliam EGFR-AF PALAUAN >60 Normal >=60 [facility] Comment on above: Performed By: #### C MP, BNP, HSTROPN ####[facility] Xwxwmkrwyo1994 [place] [address]Dr. Garima Pulliam EGFR-NON AF PALAUAN >60 Normal >=60 [facility] Comment on above: Performed By: #### C MP, BNP, HSTROPN ####[facility] Uwxlmezdmf7594 [place] [address]Dr. Garima Pulliam Globulin (S) [Mass/Vol] 2.4 g/dL Normal [facility] Comment on above: Performed By: #### C MP, BNP, HSTROPN ####[facility] Jvnpsmdlbo4[address] [place], [place] [address]Dr. Garima Pulliam Glucose [Mass/Vol] 85 mg/dL Normal 74-106 [facility] Comment on above: Performed By: #### C MP, BNP, HSTROPN ####[facility] Gvbogdvpuk1639 [place] [address]Dr. Garima Pulliam Potassium [Moles/Vol] 3.7 mmol/L Normal 3.5-5.1 [facility] Comment on above: Performed By: #### C MP, BNP, HSTROPN ####[facility] Wbvfjmxoby2619 [place] [address]Dr. Garima Pulliam Protein [Mass/Vol] 6.0 g/dL Critically low 6.4-8.2 [facility] Comment on above: Performed By: #### C MP, BNP, HSTROPN ####[facility] Wflsinzxnz4087 [place] [address]Dr. Garima Pulliam Sodium [Moles/Vol] 141 mmol/L Normal 136-145 [facility] Comment on above: Performed By: #### C MP, BNP, HSTROPN ####[facility] Kflajhejen2531 [place] [address]Dr. Garima Pulliam Urea nitrogen [Mass/Vol] 5.0 mg/dL Critically low 7.0-18.0 [facility] Comment on above: Performed By: #### C MP, BNP, HSTROPN ####[facility] Mgqwvomame1609 [place] [address]Dr. Garima Pulliam Urea nitrogen/Creatinine [Mass ratio] 7.7 mg/mg Normal [facility] Comment on above: Performed By: #### C MP, BNP, HSTROPN ####[facility] Oxonqapgqn3447 [place] [address]Dr. Garima Pulliam PROTIMEon 01-12-2023 INR Coag (PPP) [Relative time] 1.16 {INR} Normal [facility] Comment on above: Performed By: #### P TT, PT ####[facility] Ouhlkuojhj750[address] [place] [address]Dr. Garima Pulliam INR GUIDELINES SEE BELOW Normal [facility] Comment on above: Result Comment: WESLEY RED INR: 2.0 - 3.0 CONDITIONS NOT LISTED BELOW 2.5 - 3.5 FOR PROSTHETIC HEART VALVE REPLACEMENT 2.5 - 3.5 RECURRENT THROMBOSIS Performed By: #### P TT, PT ####[facility] Bcugrqyipr[address] [place], [place] [address]Dr. Garima Pulliam PT Coag (PPP) [Time] 12.2 s Critically high 9.0-11.6 [facility] Comment on above: Performed By: #### P TT, PT ####[facility] Xsgmtuehxq1823 [place] [address]Dr. Garima Pulliam PTTon 01-12-2023 aPTT Coag (Bld) [Time] 29.1 s Normal 22.3-36.2 [facility] Comment on above: Performed By: #### P TT, PT ####[facility] Uzpsdpbgyn[address] [place], [place] [address]Dr. Garima Pulliam TROPONIN, HIGH SENSITIVITYon 01-12-2023 HSTROP 10.3 pg/mL Normal 4.0-76.1 [facility] Comment on above: Result Comment: CUT- OFF POINTS HAVE BEEN ESTABLISHED BASED ON THE FOURTH UNIVERSAL DEFINITIONS OF MYOCARDIALINFARCTION. THE UPPER REFERENCE LIMIT (URL) OF TROPONIN, DEFINED THE 99TH PERCENTILE OFcTnI DISTRIBUTION IN A REFERENCE POPULATION, HAS BEEN CONFIRMED THE DECISION THRESHOLDFOR NV DIAGNOSIS. Performed By: #### H STROPN ####[facility] Palhpovpeo20[address] [place] [address]Dr. Garima Pulliam HSTROP 9.2 pg/mL Normal 4.0-76.1 [facility] Comment on above: Result Comment: CUT- OFF POINTS HAVE BEEN ESTABLISHED BASED ON THE FOURTH UNIVERSAL DEFINITIONS OF MYOCARDIALINFARCTION. THE UPPER REFERENCE LIMIT (URL) OF TROPONIN, DEFINED THE 99TH PERCENTILE OFcTnI DISTRIBUTION IN A REFERENCE POPULATION, HAS BEEN CONFIRMED THE DECISION THRESHOLDFOR NV DIAGNOSIS. Performed By: #### C MP, BNP, HSTROPN ####[facility] Jejahdwrys0104 [place] [address]Dr. Garima Pulliam XR CHEST 1 Von 01-12-2023 XR CHEST 1 V Normal [facility] XR CHEST 1 Von 01-01-2023 XR CHEST 1 V Normal [facility] CARDIAC NASH 3-6on 3 CK [Catalytic activity/Vol] 196 U/L Normal 39-308 [facility] Comment on above: Performed By: #### C MREP ####[facility] Ymttsczkty0511 [place] [address]Dr. Garima Pulliam CK.MB [Mass/Vol] 7.41 ng/mL Critically high <=3.60 [facility] Comment on above: Performed By: #### C MREP ####[facility] Aurxhkawjf6753 [place] [address]Dr. Garima Pulliam HSTROP 10.3 pg/mL Normal 4.0-76.1 [facility] Comment on above: Result Comment: CUT- OFF POINTS HAVE BEEN ESTABLISHED BASED ON THE FOURTH UNIVERSAL DEFINITIONS OF MYOCARDIALINFARCTION. THE UPPER REFERENCE LIMIT (URL) OF TROPONIN, DEFINED THE 99TH PERCENTILE OFcTnI DISTRIBUTION IN A REFERENCE POPULATION, HAS BEEN CONFIRMED THE DECISION THRESHOLDFOR [place] DIAGNOSIS. Performed By: #### C MREP ####[facility] Mhslknczon4927 [place] [phone]. Garima Pulliam XR CHEST 1 Von 12-26-2022 XR CHEST 1 V Normal [facility] BNPon 12-25-2022 Natriuretic peptide B (Bld) [Mass/Vol] 98.0 pg/mL Normal <=900.0 [facility] Comment on above: Performed By: #### B MARVIN FRENCH CMADM ####[facility] Dwpdiihdtr3995 [place] [address]Dr. Garima Pulliam CARDIAC NASH ADMITon 023 CK [Catalytic activity/Vol] 208 U/L Normal 39-308 [facility] Comment on above: Performed By: #### B MARVIN FRENCH CMADM ####[facility] Izzzztzuoz0556 [place] [address]Dr. Garima Pulliam CK.MB [Mass/Vol] 7.63 ng/mL Critically high <=3.60 [facility] Comment on above: Performed By: #### B MARVIN FRENCH CMADM ####[facility] Xjggagacbk33[address] [place], [place] [address]Dr. Garima Pulliam HSTROP 8.8 pg/mL Normal 4.0-76.1 [facility] Comment on above: Result Comment: CUT- OFF POINTS HAVE BEEN ESTABLISHED BASED ON THE FOURTH UNIVERSAL DEFINITIONS OF MYOCARDIALINFARCTION. THE UPPER REFERENCE LIMIT (URL) OF TROPONIN, DEFINED THE 99TH PERCENTILE OFcTnI DISTRIBUTION IN A REFERENCE POPULATION, HAS BEEN CONFIRMED THE DECISION THRESHOLDFOR [place] DIAGNOSIS. Performed By: #### B MARVIN FRENCH CMADM ####[facility] Spxigmhnza86[address] [place], [place] [address]Dr. Garima uPlliam DORIS 83 ng/mL Normal 16-96 [facility] Comment on above: Performed By: #### B MARVIN FRENCH CMADM ####[facility] Tjwyxsmbqv22[address] [place], [place] [address]Dr. Garima Pulliam CBC AUTO DIFFon 12-25-2022 BASO # 0.0 103/ul Normal 0.0-0.1 [facility] Comment on above: Performed By: #### C BC ####[facility] Epdwfyaudv57[address] [place], [place] [address]Dr. Garima Pulliam Basophils/100 WBC (Bld) 0.0 % Critically low 0.2-2.0 [facility] Comment on above: Performed By: #### C BC ####[facility] Patsfviexl4390 [place] [address]Dr. Garima Pulliam EO # 0.0 103/ul Normal 0.0-0.7 [facility] Comment on above: Performed By: #### C BC ####[facility] Cybqysnqhg15[address] [place], [place] [address]Dr. Garima Pulliam Eosinophils/100 WBC (Bld) 0.7 % Critically low 0.9-7.0 [facility] Comment on above: Performed By: #### C BC ####[facility] Smbdcceukw65[address] [place], [place] [address]Dr. Garima Pulliam Erythrocyte distribution width (RBC) [Ratio] 13.4 % Normal 11.0-15.0 [facility] Comment on above: Performed By: #### C BC ####[facility] Ngxbmjrima138[address] [place], [place] [address]Dr. Garima Pulliam Hematocrit (Bld) [Volume fraction] 42.9 % Normal 42.0-54.0 [facility] Comment on above: Performed By: #### C BC ####[facility] Zjfeyckkkc11[address] [place], [place] [address]Dr. Garima Pulliam Hemoglobin (Bld) [Mass/Vol] 14.4 g/dL Normal 14.0-18.0 [facility] Comment on above: Performed By: #### C BC ####[facility] Uocxkpjchw8[address] [place], [place] [address]Dr. Garima Pulliam IG # 0.00 10e3/ul Normal 0.00-0.03 [facility] Comment on above: Performed By: #### C BC ####[facility] Widlfiwscr[address] [place], [place] [address]Dr. Garima Pulliam IG % 0.0 % Normal 0.0-0.5 [facility] Comment on above: Performed By: #### C BC ####[facility] Pknijkpumo[address] [place], [place] [address]Dr. Garima Pulliam LYMPH # 2.4 103/ul Normal 1.2-3.8 [facility] Comment on above: Performed By: #### C BC ####[facility] Zliooqdcoe5712 [place] [phone]. Chapisrenu Pulliam Lymphocytes/100 WBC (Bld) 29.2 % Normal 20.5-60.0 [facility] Comment on above: Performed By: #### C BC ####[facility] Viewovxivo7724 [place] [id number]. Garima Pulliam MANUAL DIFF REQ NO Normal [place] Comment on above: Performed By: #### C BC ####[facility] Ertvencnof7950 [place] [phone]. Garima Pulliam MCH (RBC) [Entitic mass] 30.7 pg Normal 25.9-34.0 [facility] Comment on above: Performed By: #### C BC ####[facility] Vtlgzlpbzm[address] [place], [place] [address]Dr. Garima Pulliam MCHC (RBC) [Mass/Vol] 33.6 g/dL Normal 29.9-35.2 [facility] Comment on above: Performed By: #### C BC ####[facility] Nyohfioiqe15[address] [place], [place] [address]Dr. Garima Pulliam MCV (RBC) [Entitic vol] 91.5 fL Normal 80.0-94.0 [facility] Comment on above: Performed By: #### C BC ####[facility] Rtbypgnwqy3[address] [place], [place] [address]Dr. Garima Pulliam MONO # 0.0 103/ul Critically low 0.3-0.[address] [facility] Comment on above: Performed By: #### C BC ####[facility] Uupgyuqqob1444 [place] [address]Dr. Garima Pulliam Monocytes/100 WBC (Bld) 8.0 % Normal 1.7-12.0 [facility] Comment on above: Performed By: #### C BC ####[facility] Xqusjhueke[address] [place], [place] [address]Dr. Garima Pulliam NEUT # 5.1 103/ul Normal 1.4-6.5 [facility] Comment on above: Performed By: #### C BC ####[facility] Iibzlkyakd1244 [place], [place] [address]Fk. Garima Pulliam Neutrophils/100 WBC (Bld) 62.8 % Normal 43.0-75.0 [facility] Comment on above: Performed By: #### C BC ####[facility] Vluqfiuqjw3192 [place], [place] [address]Ma. Garima Pulliam Platelet mean volume (Bld) [Entitic vol] 8.6 fL Critically low 9.5-13.5 [facility] Comment on above: Performed By: #### C BC ####[facility] Lfotvyfhic5185 [place] [id number]. Garima Pulliam PLT 200 103/ul Normal 150-450 [facility] Comment on above: Performed By: #### C BC ####[facility] Wkavqbyyep6733 [place] [id number]. Garima Pulliam RBC 4.69 106/ul Critically low 4.70-6.10 [place] Comment on above: Performed By: #### C BC ####[facility] Bdpjvrsmxr7410 [place], [place] [address]Ni. Garima Pulliam WBC 8.2 103/ul Normal 4.0-11.0 [facility] Comment on above: Performed By: #### C BC ####[facility] Hwbdkardly6312 [place], [place] [address]Vh. Garima Pulliam [facility]on SARS-CoV-2 (COVID-19) RNA MARIE+probe Ql (Unsp spec) Not detected Normal NOT DETECTED [facility] Comment on above: Result Comment: When [...] for this test is supported by the Division Traffic Superintendent of Health and Human Service's declaration that [...] used). Performed By: #### C VDTBH ####[facility] Dysitpgozb[address] [place], [place] [address]Dr. Garima Pulliam INFLUENZA A AND B AGon 12-25 INFLUANEGH SEE BELOW Normal [facility] Comment on above: Result Comment: Nega tive for Flu A protein angiten. Infection due to Flu A cannot be ruled out. Flu A angiten in the sample may be below the detection limit of the test. Performed By: #### I NFLUAB ####[facility] Ipomenzq[address] [place], [place] [address]Dr. Garima Pulliam INFLUBNEGH SEE BELOW Normal [facility] Comment on above: Result Comment: Nega tive for Flu B protein antigen. Infection due to Flu B cannot be ruled out. Flu B antigen in the sample may be below the detection limit of the test. Performed By: #### I NFLUAB ####[facility] Vnlmvoqnko[address] [place], [place] [address]Dr. Garima Pulliam INFLUENZA A AG Negative Normal NEGATIVE SEE COMMENT [facility] Comment on above: Performed By: #### I NFLUAB ####[facility] Ppwfprnvqi[address] [place], [place] [address]Dr. renu [facility] INFLUENZA B AG Negative Normal NEGATIVE SEE COMMENT [facility] Comment on above: Performed By: #### I NFLUAB ####[facility] Feydirzboa[address] [place], [place] [address]Dr. Garima Pulliam PROF CHEM 8 (BAS METB)on Anion gap [Moles/Vol] 11.1 mmol/L Normal [facility] Comment on above: Performed By: #### B MEAT GRADING MACHINE OPERATOR, BMP, CMADM ####[facility] Jxgfzfafps[address] [place], [place] [address]Dr. Garima Pulliam Calcium [Mass/Vol] 8.5 mg/dL Normal 8.5-10.1 [facility] Comment on above: Performed By: #### B MEAT GRADING MACHINE OPERATOR, MARVIN, CMADM ####[facility] [address] [place] [id number]. Garima Pulliam Chloride [Moles/Vol] 106 mmol/L Normal 98-107 [facility] Comment on above: Performed By: #### B MEAT GRADING MACHINE OPERATOR, BMP, CMADM ####[facility] [address] [place] [address]Dr. Garima Pulliam CO2 [Moles/Vol] 27.4 mmol/L Normal 21.0-32.0 [facility] Comment on above: Performed By: #### B MEAT GRADING MACHINE OPERATOR, MARVIN, CMADM ####[facility] Ikcqefdjpg[address] [place] [address]Dr. Garima Pulliam Creatinine [Mass/Vol] 0.65 mg/dL Critically low 0.70-1.30 [facility] Comment on above: Performed By: #### B MEAT GRADING MACHINE OPERATOR, MARVNI, CMADM ####[facility] [address]tiyxyn[address] [place] [address]Dr. Garima Pulliam EGFR-AF PALAUAN >60 Normal >=60 [facility] Comment on above: Performed By: #### B MEAT GRADING MACHINE OPERATOR, BMP, CMADM ####[facility] Zmbuqfzypn[address] [place] [address]Dr. Garima Pulliam EGFR-NON AF PALAUAN >60 Normal >=60 [facility] Comment on above: Performed By: #### B MEAT GRADING MACHINE OPERATOR, BMP, CMADM ####[facility] Cvwmmqugsh[address] [place] [address]Dr. Garima Pulliam Glucose [Mass/Vol] 140 mg/dL Critically high 74-106 [facility] Comment on above: Performed By: #### B MEAT GRADING MACHINE OPERATOR, BMP, CMADM ####[facility] Pbvvlpybsk7[address] [place] [address]Dr. Garima Pulliam Potassium [Moles/Vol] 3.5 mmol/L Normal 3.5-5.1 [facility] Comment on above: Performed By: #### B MEAT GRADING MACHINE OPERATOR, BMP, CMADM ####[facility] Ogykgqmjcm[address] [place] [address]Dr. Garima Pulliam Sodium [Moles/Vol] 141 mmol/L Normal 136-145 [facility] Comment on above: Performed By: #### B MEAT GRADING MACHINE OPERATOR, BMP, CMADM ####[facility] Hnjqoqycle[address] [place] [address]Dr. Garima Pulliam Urea nitrogen [Mass/Vol] 8.0 mg/dL Normal 7.0-18.0 [facility] Comment on above: Performed By: #### B MEAT GRADING MACHINE OPERATOR, BMP, CMADM ####[facility] Yvfdvlqglw[address] [place] [address]Dr. Garima Pulliam Urea nitrogen/Creatinine [Mass ratio] 12.3 mg/mg Normal [facility] Comment on above: Performed By: #### B MEAT GRADING MACHINE OPERATOR, BMP, CMADM ####[facility] Vthqhvvqia[address] [place], [place] [address]Dr. Garima Pulliam CARDIAC NASH ADMITon 023 CK [Catalytic activity/Vol] 165 U/L Normal 39-308 [facility] Comment on above: Performed By: #### B DAVID, CMADM ####[facility] Hguoxifzsg[address] [place], [place] [address]Dr. Garima Pulliam CK.MB [Mass/Vol] 6.48 ng/mL Critically high <=3.60 [facility] Comment on above: Performed By: #### B MP, CMADM ####[facility] Cnrlfeuqlq[address] [place], [place] [address]Dr. Garima Pulliam HSTROP 11.7 pg/mL Normal 4.0-76.1 [facility] Comment on above: Result Comment: CUT- OFF POINTS HAVE BEEN ESTABLISHED BASED ON THE FOURTH UNIVERSAL DEFINITIONS OF MYOCARDIALINFARCTION. THE UPPER REFERENCE LIMIT (URL) OF TROPONIN, DEFINED THE 99TH PERCENTILE OFcTnI DISTRIBUTION IN A REFERENCE POPULATION, HAS BEEN CONFIRMED THE DECISION THRESHOLDFOR [place] DIAGNOSIS. Performed By: #### B MP, CMADM ####[facility] Flzqkydcel26[address] [place], [place] [address]Dr. Garima Pulliam DORIS 83 ng/mL Normal 16-96 [facility] Comment on above: Performed By: #### B MP, CMADM ####[facility] [address]oynnllc[address] [place] [address]Dr. Garima Pulliam CBC AUTO DIFFon 12-10-2022 BASO # 0.0 103/ul Normal 0.0-0.1 [facility] Comment on above: Performed By: #### C BC ####[facility] Afygdizumb[address] [place], [place] [address]Dr. Garima Heraclio Basophils/100 WBC (Bld) 0.3 % Normal 0.2-2.0 [facility] Comment on above: Performed By: #### C BC ####[facility] Cmraluzegr[address] [place], [place] [address]Dr. Garima Pulliam EO # 0.1 103/ul Normal 0.0-0.7 [facility] Comment on above: Performed By: #### C BC ####[facility] Yqujwikvtc6[address] [place], [place] [address]Dr. Garima Pulliam Eosinophils/100 WBC (Bld) 0.4 % Critically low 0.9-7.0 [facility] Comment on above: Performed By: #### C BC ####[facility] Yvbzicqivz12[address] [place], [place] [address]Dr. Garima Pulliam Erythrocyte distribution width (RBC) [Ratio] 13.2 % Normal 11.0-15.0 [facility] Comment on above: Performed By: #### C BC ####[facility] Bqvaiuvtsn[address] [place], [place] [address]Dr. Garima Pulliam Hematocrit (Bld) [Volume fraction] 42.4 % Normal 42.0-54.0 [facility] Comment on above: Performed By: #### C BC ####[facility] Odnnkhhvxt[address] [place], [place] [address]Dr. Garima Pulliam Hemoglobin (Bld) [Mass/Vol] 14.4 g/dL Normal 14.0-18.0 [facility] Comment on above: Performed By: #### C BC ####[facility] Abpfzjvruw37[address] [place] [id number]. Garima Heraclio IG # 0.05 10e3/ul Critically high 0.00-0.03 [facility] Comment on above: Performed By: #### C BC ####[facility] [address]owfafsgk[address] [place] [address]Dr. Garima Heraclio IG % 0.4 % Normal 0.0-0.5 [facility] Comment on above: Performed By: #### C BC ####[facility] Gfhjlavibm[address] [place], [place] [address]Dr. Garima Pulliam LYMPH # 0.8 103/ul Critically low 1.2-3.[address] [facility] Comment on above: Performed By: #### C BC ####[facility] Nrovuorwrk[address] [place], [place] [address]Dr. Chapisrenu Pulliam Lymphocytes/100 WBC (Bld) 6.5 % Critically low 20.5-60.0 [facility] Comment on above: Performed By: #### C BC ####[facility] Quyapeqgns[address] [place], [place] [address]Dr. Chapisrenu Pulliam MANUAL DIFF REQ NO Normal [facility] Comment on above: Performed By: #### C BC ####[facility] Rgvspjitti[address] [place], [place] [address]DrAdalberto Garima Pulliam MCH (RBC) [Entitic mass] 30.5 pg Normal 25.9-34.0 [facility] Comment on above: Performed By: #### C BC ####[facility] Smz[address]frkab[address] [place], [place] [address]DrAdalberto Garima Heraclio MCHC (RBC) [Mass/Vol] 34.0 g/dL Normal 29.9-35.2 [facility] Comment on above: Performed By: #### C BC ####[facility] Ctntflmisj[address] [place], [place] [address]DrAdalberto Garima Heraclio MCV (RBC) [Entitic vol] 89.8 fL Normal 80.0-94.0 [facility] Comment on above: Performed By: #### C BC ####[facility] Hqoxdhlgjw[address] [place], [place] [address]Dr. Garima Pulliam MONO # 0.2 103/ul Critically low 0.3-0.[address] [facility] Comment on above: Performed By: #### C BC ####[facility] Vgqeyhxblx20[address] [place] [id number]. Garima Pulliam Monocytes/100 WBC (Bld) 2.0 % Normal 1.7-12.0 [facility] Comment on above: Performed By: #### C BC ####[facility] Fftqeycnkc[address] [place] [address]Dr. Chapisrenu Heraclio NEUT # 10.5 103/ul Critically high 1.4-6.5 [facility] Comment on above: Performed By: #### C BC ####[facility] [address]ihlkpuzr[address] [place] [address]Dr. Garima Pulliam Neutrophils/100 WBC (Bld) 90.4 % Critically high 43.0-75.0 [facility] Comment on above: Performed By: #### C BC ####[facility] [address]agsmwwrdg[address] [place] [address]Dr. Garima Pulliam Platelet mean volume (Bld) [Entitic vol] 9.4 fL Critically low 9.5-13.5 [facility] Comment on above: Performed By: #### C BC ####[facility] Pnwfconnxx28[address] [place] [address]Dr. Garima Pulliam PLT 198 103/ul Normal 150-450 [facility] Comment on above: Performed By: #### C BC ####[facility] Dgwlcboeuu7[address] [place] [address]Dr. Garima Pulliam RBC 4.72 106/ul Normal 4.70-6.10 [facility] Comment on above: Performed By: #### C BC ####[facility] [address]zeroyieps30[address] [place] [id number]. Garima Pulliam WBC 11.6 103/ul Critically high 4.0-11.0 [facility] Comment on above: Performed By: #### C BC ####[facility] [address]arp[address] [place] [address]DrAdalberto Pulliam PROF CHEM 8 (BAS METB)on Anion gap [Moles/Vol] 11.3 mmol/L Normal [facility] Comment on above: Performed By: #### B NANCY HERNANDEZ ####[facility] Javssumnlq[address] [place] [address]Dr. Garima Pulliam Calcium [Mass/Vol] 8.9 mg/dL Normal 8.5-10.1 [facility] Comment on above: Performed By: #### B NANCY HERNANDEZ ####[facility] Hwvexoidbz17[address] [place] [address]Dr. Garima Pulliam Chloride [Moles/Vol] 103 mmol/L Normal 98-107 [facility] Comment on above: Performed By: #### B NANCY HERNANDEZ ####[facility] Gwkzjmwrbz[address] [place], [place] [address]Dr. Garima Pulliam CO2 [Moles/Vol] 28.2 mmol/L Normal 21.0-32.0 [facility] Comment on above: Performed By: #### NANCY Larkin MP ####[facility] Vwcaepsugb74[address] [place] [address]Dr. Chapisrenu Pulliam Creatinine [Mass/Vol] 0.60 mg/dL Critically low 0.70-1.30 [facility] Comment on above: Performed By: #### NANCY Larkin MP ####[facility] Hutxsucgvm[address] [place] [address]Dr. Garima Pulliam EGFR-AF PALAUAN >60 Normal >=60 [facility] Comment on above: Performed By: #### NANCY Larkin MP ####[facility] Zzptjkqjqq39[address] [place] [address]Dr. Garima Pulliam EGFR-NON AF PALAUAN >60 Normal >=60 [facility] Comment on above: Performed By: #### NANCY Larkin MP ####[facility] Bcechowydf[address] [place], [place] [address]Dr. Garima Pulliam Glucose [Mass/Vol] 166 mg/dL Critically high 74-106 [facility] Comment on above: Performed By: #### B MP, CMADM ####[facility] Nhvqhzlvnz34[address] [place] [address]Dr. Garima Pulliam Potassium [Moles/Vol] 3.5 mmol/L Normal 3.5-5.1 [facility] Comment on above: Performed By: #### B MP, CMADM ####[facility] [address]fr[address] [place] [address]Dr. Garima Pulliam Sodium [Moles/Vol] 139 mmol/L Normal 136-145 [facility] Comment on above: Performed By: #### B DAVID, CMADM ####[facility] Qdnjxjfaxd20[address] [place] [address]Dr. Garima Heraclio Urea nitrogen [Mass/Vol] 9.0 mg/dL Normal 7.0-18.0 [facility] Comment on above: Performed By: #### B DAVID, NANCY ####[facility] Lrifmobgsm[address] [place], [place] [address]Dr. Garima Heraclio Urea nitrogen/Creatinine [Mass ratio] 15.0 mg/mg Normal [facility] Comment on above: Performed By: #### B DAVID, CMAANA ROSA ####[facility] Hbqemonhsk[address] [place], [place] [address]Dr. Garima Pulliam XR CHEST 1 Von 12-10-2022 XR CHEST 1 V Normal [facility] BNPon 11-27-2022 Natriuretic peptide B (Bld) [Mass/Vol] 95.0 pg/mL Normal <=900.0 [facility] Comment on above: Performed By: #### C MP, HSTROPN, BNP ####[facility] Hcohgkxcyh[address] [place], [place] [address]Dr. Garima Heraclio CBC AUTO DIFFon 11-27-2022 BASO # 0.0 103/ul Normal 0.0-0.1 [facility] Comment on above: Performed By: #### C BC ####[facility] Bklepgtrbw[address] [place], [place] [address]Dr. Garima Heraclio Basophils/100 WBC (Bld) 0.2 % Normal 0.2-2.0 [facility] Comment on above: Performed By: #### C BC ####[facility] Leykhmkamk5[address] [place] [id number]. Garima Pulliam EO # 0.2 103/ul Normal 0.0-0.7 [facility] Comment on above: Performed By: #### C BC ####[facility] Uoytdvopyy6500 [place] [id number]. Garima Pulliam Eosinophils/100 WBC (Bld) 2.0 % Normal 0.9-7.0 [facility] Comment on above: Performed By: #### C BC ####[facility] Tvsajcezez[address] [place], [place] [address]Dr. Garima Pulliam Erythrocyte distribution width (RBC) [Ratio] 13.2 % Normal 11.0-15.0 [facility] Comment on above: Performed By: #### C BC ####[facility] Kvoapluimh6[address] [place], [place] [address]Dr. Garima Pulliam Hematocrit (Bld) [Volume fraction] 42.4 % Normal 42.0-54.0 [facility] Comment on above: Performed By: #### C BC ####[facility] Wlskbiqqmi[address] [place], [place] [address]Dr. Garima Pulliam Hemoglobin (Bld) [Mass/Vol] 14.4 g/dL Normal 14.0-18.0 [facility] Comment on above: Performed By: #### C BC ####[facility] Jvgwfuyedg3[address] [place], [place] [address]Dr. Garima Pulliam IG # 0.04 10e3/ul Critically high 0.00-0.03 [facility] Comment on above: Performed By: #### C BC ####[facility] Jzjyjzsgdd[address] [place], [place] [address]Dr. Garima Pulliam IG % 0.4 % Normal 0.0-0.5 [facility] Comment on above: Performed By: #### C BC ####[facility] [address]xatdmutyt[address] [place], [place] [address]Dr. Garima Pulliam LYMPH # 2.2 103/ul Normal 1.2-3.8 [facility] Comment on above: Performed By: #### C BC ####[facility] Ihwmtkjfri5756 [place] [id number]. Garima Pulliam Lymphocytes/100 WBC (Bld) 21.5 % Normal 20.5-60.0 [facility] Comment on above: Performed By: #### C BC ####[facility] Yihoxcamud7608 [place] [id number]. Garima Heraclio MANUAL DIFF REQ NO Normal [facility] Comment on above: Performed By: #### C BC ####[facility] Aadbybgixx8514 [place] [id number]. Garima Heraclio MCH (RBC) [Entitic mass] 30.4 pg Normal 25.9-34.0 [facility] Comment on above: Performed By: #### C BC ####[facility] Oqbhhflges3136 [place] [address]Dr. Garima Heraclio MCHC (RBC) [Mass/Vol] 34.0 g/dL Normal 29.9-35.2 [facility] Comment on above: Performed By: #### C BC ####[facility] Xhvtnvzhdq3016 [place] [phone]. Garima Pulliam MCV (RBC) [Entitic vol] 89.6 fL Normal 80.0-94.0 [facility] Comment on above: Performed By: #### C BC ####[facility] Oyprjgsqro0196 [place] [id number]. Garima Pulliam MONO # 0.8 103/ul Normal 0.3-0.8 [facility] Comment on above: Performed By: #### C BC ####[facility] Guzlzzmvkm5661 [place] [phone]. Chapisrenu Pulliam Monocytes/100 WBC (Bld) 7.7 % Normal 1.7-12.0 [facility] Comment on above: Performed By: #### C BC ####[facility] Nmkowdfsjb[address] [place], [place] [address]Dr. Garima Pulliam NEUT # 7.0 103/ul Critically high 1.4-6.5 [facility] Comment on above: Performed By: #### C BC ####[facility] Bmoblfvllg1696 [place] [id number]. Garima Pulliam Neutrophils/100 WBC (Bld) 68.2 % Normal 43.0-75.0 [facility] Comment on above: Performed By: #### C BC ####[facility] Ffcqmnrafd2626 [place] [id number]. Chapisrenu Pulliam Platelet mean volume (Bld) [Entitic vol] 8.9 fL Critically low 9.5-13.5 [facility] Comment on above: Performed By: #### C BC ####[facility] Airvgrfpag[address] [place] [address]Dr. Garima Pulliam PLT 222 103/ul Normal 150-450 [facility] Comment on above: Performed By: #### C BC ####[facility] Bmcnismxoi74[address] [place] [address]Dr. Garima Pulliam RBC 4.73 106/ul Normal 4.70-6.10 [facility] Comment on above: Performed By: #### C BC ####[facility] Bidfbhbkon[address] [place] [address]Dr. Garima Pulliam WBC 10.3 103/ul Normal 4.0-11.0 [facility] Comment on above: Performed By: #### C BC ####[facility] Clfhluhypg9[address] [place] [address]Dr. Garima Pulliam PROF 14(COMP METB)on 023 Albumin [Mass/Vol] 3.7 g/dL Normal 3.4-5.0 [facility] Comment on above: Performed By: #### C MP, HSTROPN, BNP ####[facility] Cmehcuprth[address] [place] [address]Dr. Chapisrenu Pulliam Albumin/Globulin [Mass ratio] 1.5 {ratio} Normal [facility] Comment on above: Performed By: #### C MP, HSTROPN, BNP ####[facility] Tvoypcopdr9503 [place] [address]Dr. Garima Pulliam ALP [Catalytic activity/Vol] 79 U/L Normal 46-116 [facility] Comment on above: Performed By: #### C MP, HSTROPN, BNP ####[facility] Sfbxydsdxh6604 [place] [address]Dr. Garima Pulliam ALT [Catalytic activity/Vol] 32 U/L Normal 16-63 [facility] Comment on above: Performed By: #### C MP, HSTROPN, BNP ####[facility] Vkzoozuobu35[address] [place] [address]Dr. Garima Pulliam Anion gap [Moles/Vol] 9.5 mmol/L Normal [facility] Comment on above: Performed By: #### C MP, HSTROPN, BNP ####[facility] M[address]irjdnies[address] [place], [place] [address]Dr. Garima Pulliam AST [Catalytic activity/Vol] 25 U/L Normal 15-37 [facility] Comment on above: Performed By: #### C MP, HSTROPN, BNP ####[facility] Vcmfbohfba[address] [place], [place] [address]Dr. Chapislan Pulliam Bilirubin [Mass/Vol] 0.4 mg/dL Normal 0.2-1.0 [facility] Comment on above: Performed By: #### C MP, HSTROPN, BNP ####[facility] E[address]fuemlnzf[address] [place], [place] [address]Dr. Garima Pulliam Calcium [Mass/Vol] 8.9 mg/dL Normal 8.5-10.1 [facility] Comment on above: Performed By: #### C MP, HSTROPN, BNP ####[facility] Wekngpfblk[address] [place], [place] [address]Dr. Chapislan Pulliam Chloride [Moles/Vol] 103 mmol/L Normal 98-107 [facility] Comment on above: Performed By: #### C MP, HSTROPN, BNP ####[facility] Vepewyznex[address] [place], [place] [address]Dr. Yilan Pulliam CO2 [Moles/Vol] 28.6 mmol/L Normal 21.0-32.0 [facility] Comment on above: Performed By: #### C MP, HSTROPN, BNP ####[facility] Uctqwcfrih26[address] [place] [address]Dr. Garima Pulliam Creatinine [Mass/Vol] 0.72 mg/dL Normal 0.70-1.30 [facility] Comment on above: Performed By: #### C MP, HSTROPN, BNP ####[facility] Cmwcimnlui76[address] [place] [address]Dr. Garima Pulliam EGFR-AF PALAUAN >60 Normal >=60 [facility] Comment on above: Performed By: #### C MP, HSTROPN, BNP ####[facility] Mchdieifaa0629 [place] [address]Dr. Garima Pulliam EGFR-NON AF PALAUAN >60 Normal >=60 [facility] Comment on above: Performed By: #### C MP, HSTROPN, BNP ####[facility] Hcaxszyjgg3038 [place] [address]Dr. Garima Pulliam Globulin (S) [Mass/Vol] 2.5 g/dL Normal [facility] Comment on above: Performed By: #### C MP, HSTROPN, BNP ####[facility] [address]ootjzvlj[address] [place], [place] [address]Dr. Garima Pulliam Glucose [Mass/Vol] 114 mg/dL Critically high 74-106 [facility] Comment on above: Performed By: #### C MP, HSTROPN, BNP ####[facility] Snytcgrvvw[address] [place], [place] [address]Dr. Garima Pulliam Potassium [Moles/Vol] 4.1 mmol/L Normal 3.5-5.1 [facility] Comment on above: Performed By: #### C MP, HSTROPN, BNP ####[facility] G[address]idxqhl[address] [place], [place] [address]Dr. Garima Pulliam Protein [Mass/Vol] 6.2 g/dL Critically low 6.4-8.2 [facility] Comment on above: Performed By: #### C MP, HSTROPN, BNP ####[facility] H[address]sgoxlmzj[address] [place], [place] [address]Dr. Yilan Pulliam Sodium [Moles/Vol] 137 mmol/L Normal 136-145 [facility] Comment on above: Performed By: #### C MP, HSTROPN, BNP ####[facility] Pepaltphqd27[address] [place] [address]Dr. Garima Pulliam Urea nitrogen [Mass/Vol] 13.0 mg/dL Normal 7.0-18.0 [facility] Comment on above: Performed By: #### C MP, HSTROPN, BNP ####[facility] Suxitbzdvf[address] [place] [address]Dr. Garima Pulliam Urea nitrogen/Creatinine [Mass ratio] 18.1 mg/mg Normal [facility] Comment on above: Performed By: #### C MP, HSTROPN, BNP ####[facility] [address]qthuxavv[address] [place], [place] [address]Dr. Garima Pulliam TROPONIN, HIGH SENSITIVITYon 11-27-2022 HSTROP 11.8 pg/mL Normal 4.0-76.1 [facility] Comment on above: Result Comment: CUT- OFF POINTS HAVE BEEN ESTABLISHED BASED ON THE FOURTH UNIVERSAL DEFINITIONS OF MYOCARDIALINFARCTION. THE UPPER REFERENCE LIMIT (URL) OF TROPONIN, DEFINED THE 99TH PERCENTILE OFcTnI DISTRIBUTION IN A REFERENCE POPULATION, HAS BEEN CONFIRMED THE DECISION THRESHOLDFOR [place] DIAGNOSIS. Performed By: #### C MP, HSTROPN, BNP ####[facility] [address]amxaw[address] [place], [place] [address]Dr. Garima Pulliam XR CHEST 1 Von 11-27-2022 XR CHEST 1 V Normal [facility] BNPon 11-20-2022 Natriuretic peptide B (Bld) [Mass/Vol] 73.0 pg/mL Normal <=900.0 [facility] Comment on above: Performed By: #### B MP, HSTROPN, BNP ####[facility] [address] [place], [place] [address]Dr. Garima Pulliam CBC AUTO DIFFon 11-20-2022 BASO # 0.0 103/ul Normal 0.0-0.1 [facility] Comment on above: Performed By: #### C BC ####[facility] Irloctbseo9[address] [place] [id number]. Garima Pulliam Basophils/100 WBC (Bld) 0.3 % Normal 0.2-2.0 [facility] Comment on above: Performed By: #### C BC ####[facility] Wqidzfcrji7297 [place] [id number]. Garima Pulliam EO # 0.2 103/ul Normal 0.0-0.7 [facility] Comment on above: Performed By: #### C BC ####[facility] Bqaoskunmf[address] [place] [address]Dr. Garima Pulliam Eosinophils/100 WBC (Bld) 2.1 % Normal 0.9-7.0 [facility] Comment on above: Performed By: #### C BC ####[facility] Gwksdqumeb[address] [place], [place] [address]Dr. Garima Pulliam Erythrocyte distribution width (RBC) [Ratio] 13.2 % Normal 11.0-15.0 [facility] Comment on above: Performed By: #### C BC ####[facility] Rlllftdss[address] [place], [place] [address]Dr. Garima Pulliam Hematocrit (Bld) [Volume fraction] 43.4 % Normal 42.0-54.0 [facility] Comment on above: Performed By: #### C BC ####[facility] [address] [place], [place] [id number]. Garima Pulliam Hemoglobin (Bld) [Mass/Vol] 14.6 g/dL Normal 14.0-18.0 [facility] Comment on above: Performed By: #### C BC ####[facility] Pxvayxbzub[address] [place] [id number]. Garima Pulliam IG # 0.02 10e3/ul Normal 0.00-0.03 [facility] Comment on above: Performed By: #### C BC ####[facility] Ydhnuyitnk[address]65 [place] [address]Dr. Garima Pulliam IG % 0.2 % Normal 0.0-0.5 [facility] Comment on above: Performed By: #### C BC ####[facility] Dxxgbrvahf7295 [place] [id number]. Garima Heraclio LYMPH # 2.1 103/ul Normal 1.2-3.8 [facility] Comment on above: Performed By: #### C BC ####[facility] Cmhqfidgtl4453 [place] [id number]. Garima Heraclio Lymphocytes/100 WBC (Bld) 19.2 % Critically low 20.5-60.0 [facility] Comment on above: Performed By: #### C BC ####[facility] Fsufipiedi6674 [place] [id number]. Chapisrenu Pulliam MANUAL DIFF REQ NO Normal [facility] Comment on above: Performed By: #### C BC ####[facility] Noyyjvshzc5061 [place] [id number]. Garima Heraclio MCH (RBC) [Entitic mass] 30.4 pg Normal 25.9-34.0 [facility] Comment on above: Performed By: #### C BC ####[facility] Ijaakbncrq5351 [place] [address]Dr. Garima Pulliam MCHC (RBC) [Mass/Vol] 33.6 g/dL Normal 29.9-35.2 [facility] Comment on above: Performed By: #### C BC ####[facility] Qhdsoxknwt5641 [place] [phone]. Garima Heraclio MCV (RBC) [Entitic vol] 90.4 fL Normal 80.0-94.0 [facility] Comment on above: Performed By: #### C BC ####[facility] Agpkfbzjiz3356 [place] [id number]. Garima Heraclio MONO # 0.6 103/ul Normal 0.3-0.8 [facility] Comment on above: Performed By: #### C BC ####[facility] Yptgebodam5023 [place] [address]Dr. Garima Heraclio Monocytes/100 WBC (Bld) 5.8 % Normal 1.7-12.0 [facility] Comment on above: Performed By: #### C BC ####[facility] Zzogccjmrb5[address] [place], [place] [address]Qb. Garima Pullaim NEUT # 7.8 103/ul Critically high 1.4-6.5 [facility] Comment on above: Performed By: #### C BC ####[facility] Iyjzdhlmpk8455 [place] [phone]. Garima Pulliam Neutrophils/100 WBC (Bld) 72.4 % Normal 43.0-75.0 [facility] Comment on above: Performed By: #### C BC ####[facility] Rtpfwmfvmr2625 [place] [phone]. Garima Pulliam Platelet mean volume (Bld) [Entitic vol] 8.7 fL Critically low 9.5-13.5 [facility] Comment on above: Performed By: #### C BC ####[facility] Dqefiyxtkx2331 [place] [phone]. Garima Pulliam PLT 184 103/ul Normal 150-450 [facility] Comment on above: Performed By: #### C BC ####[facility] Vlptkaqzhu9430 [place], [place] [address]Mk. Garima Pulliam RBC 4.80 106/ul Normal 4.70-6.10 [facility] Comment on above: Performed By: #### C BC ####[facility] Itmzrcamju3824 [place] [phone]. Garima Pulliam WBC 10.8 103/ul Normal 4.0-11.0 [facility] Comment on above: Performed By: #### C BC ####[facility] Ravxvmklxq6689 [place] [phone]. Garima Pulliam [facility]on 10-24 SARS-CoV-2 (COVID-19) RNA MARIE+probe Ql (Unsp spec) Not detected Normal NOT DETECTED [facility] Comment on above: Result Comment: When [...] for this test is supported by the Division Traffic Superintendent of Health and Human Service's declaration that [...] used). Performed By: #### C VDTBH ####[facility] Ulneogxhke[address] [place], [place] [address]Dr. Garima Pulliam INFLUENZA A AND B AGon 11-[facility] SEE BELOW Normal [facility] Comment on above: Result Comment: Nega tive for Flu A protein angiten. Infection due to Flu A cannot be ruled out. Flu A angiten in the sample may be below the detection limit of the test. Performed By: #### I NFLUAB ####[facility] Ziqtjtjkov[address] [place], [place] [address]Dr. Garima Pulliam INFLUBNEGH SEE BELOW Normal [facility] Comment on above: Result Comment: Nega tive for Flu B protein antigen. Infection due to Flu B cannot be ruled out. Flu B antigen in the sample may be below the detection limit of the test. Performed By: #### I NFLUAB ####[facility] Tdhgdqyhgw[address] [place], [place] [address]Dr. Garima Pulliam INFLUENZA A AG Negative Normal NEGATIVE SEE COMMENT [facility] Comment on above: Performed By: #### I NFLUAB ####[facility] Xjyxrtxyxf[address] [place], [place] [address]Dr. Garima [facility] INFLUENZA B AG Negative Normal NEGATIVE SEE COMMENT [facility] Comment on above: Performed By: #### I NFLUAB ####[facility] Solqssbtdx[address] [place], [place] [address]Dr. Garima Pulliam PROF CHEM 8 (BAS METB)on Anion gap [Moles/Vol] 8.2 mmol/L Normal [facility] Comment on above: Performed By: #### B MP, HSTROPN, BNP ####[facility] Fxqgtfjtln5103 [place] [address]Dr. Garima Pulliam Calcium [Mass/Vol] 8.7 mg/dL Normal 8.5-10.1 [facility] Comment on above: Performed By: #### B MP, HSTROPN, BNP ####[facility] Pnbqyhwtrn6507 [place] [address]Dr. Garima Pulliam Chloride [Moles/Vol] 103 mmol/L Normal 98-107 [facility] Comment on above: Performed By: #### B MP, HSTROPN, BNP ####[facility] Rjaealuool[address] [place], [place] [address]Dr. Garima Pulliam CO2 [Moles/Vol] 29.4 mmol/L Normal 21.0-32.0 [facility] Comment on above: Performed By: #### B MP, HSTROPN, BNP ####[facility] Gmlzubxrym[address] [place], [place] [address]Dr. Garima Pulliam Creatinine [Mass/Vol] 0.69 mg/dL Critically low 0.70-1.30 [facility] Comment on above: Performed By: #### B MP, HSTROPN, BNP ####[facility] Ausbyiyvzr0453 [place] [address]Dr. Garima Pulliam EGFR-AF PALAUAN >60 Normal >=60 [facility] Comment on above: Performed By: #### B MP, HSTROPN, BNP ####[facility] Crwpvtseww[address] [place], [place] [address]Dr. Garima Pulliam EGFR-NON AF PALAUAN >60 Normal >=60 [facility] Comment on above: Performed By: #### B MP, HSTROPN, BNP ####[facility] Eampkbxtpc8895 [place] [address]Dr. Garima Pulliam Glucose [Mass/Vol] 209 mg/dL Critically high 74-106 [facility] Comment on above: Performed By: #### B MP, HSTROPN, BNP ####[facility] Kjeyowpmbg[address] [place] [address]Dr. Garima Pulliam Potassium [Moles/Vol] 3.6 mmol/L Normal 3.5-5.1 [facility] Comment on above: Performed By: #### B MP, HSTROPN, BNP ####[facility] Varaujtrrk8233 [place] [address]Dr. Garima Pulliam Sodium [Moles/Vol] 137 mmol/L Normal 136-145 [facility] Comment on above: Performed By: #### B MP, HSTROPN, BNP ####[facility] Tmigrcpacz7621 [place] [address]Dr. Garima Pulliam Urea nitrogen [Mass/Vol] 11.0 mg/dL Normal 7.0-18.0 [facility] Comment on above: Performed By: #### B MP, HSTROPN, BNP ####[facility] Fbvbllmran0659 [place] [address]Dr. Garima Pulliam Urea nitrogen/Creatinine [Mass ratio] 15.9 mg/mg Normal [facility] Comment on above: Performed By: #### B MP, HSTROPN, BNP ####[facility] Syeckcmpbr4643 [place] [address]Dr. Garima Pulliam TROPONIN, HIGH SENSITIVITYon 11-20-2022 HSTROP 8.7 pg/mL Normal 4.0-76.1 [facility] Comment on above: Result Comment: CUT- OFF POINTS HAVE BEEN ESTABLISHED BASED ON THE FOURTH UNIVERSAL DEFINITIONS OF MYOCARDIALINFARCTION. THE UPPER REFERENCE LIMIT (URL) OF TROPONIN, DEFINED THE 99TH PERCENTILE OFcTnI DISTRIBUTION IN A REFERENCE POPULATION, HAS BEEN CONFIRMED THE DECISION THRESHOLDFOR NV DIAGNOSIS. Performed By: #### B MP, HSTROPN, BNP ####[facility] Cvlnlxylhf0056 [place] [address]Dr. Garima Pulliam XR CHEST 1 Von 11-20-2022 XR CHEST 1 V Normal [facility] XR CHEST 1 Von 10-02-2022 XR CHEST 1 V Normal [facility] BNPon 09-29-2022 Natriuretic peptide B (Bld) [Mass/Vol] 107.0 pg/mL Normal <=900.0 [facility] Comment on above: Performed By: #### C MP, BNP, CMADM ####[facility] Sdwqjbwafq8336 [place] [address]Dr. Garima Pulliam CARDIAC NASH ADMITon 022 CK [Catalytic activity/Vol] 190 U/L Normal 39-308 [facility] Comment on above: Performed By: #### C MP, BNP, CMADM ####[facility] Tudsgeduqi2462 [place] [address]Dr. Garima Heraclio CK.MB [Mass/Vol] 11.11 ng/mL Critically high <=3.60 [facility] Comment on above: Performed By: #### C MP, BNP, CMADM ####[facility] Ewqbllteis5971 [place] [address]Dr. Garima Pulliam HSTROP 11.8 pg/mL Normal 4.0-76.1 [facility] Comment on above: Result Comment: CUT- OFF POINTS HAVE BEEN ESTABLISHED BASED ON THE FOURTH UNIVERSAL DEFINITIONS OF MYOCARDIALINFARCTION. THE UPPER REFERENCE LIMIT (URL) OF TROPONIN, DEFINED THE 99TH PERCENTILE OFcTnI DISTRIBUTION IN A REFERENCE POPULATION, HAS BEEN CONFIRMED THE DECISION THRESHOLDFOR NV DIAGNOSIS. Performed By: #### C MP, BNP, CMADM ####[facility] Qhgcxqtqqc6166 [place] [address]Dr. Garima Pulliam DORIS 133 ng/mL Critically high 16-96 [facility] Comment on above: Performed By: #### C MP, BNP, CMADM ####[facility] Ijicbkmqzk3112 [place] [address]Dr. Garima Heraclio CBC AUTO DIFFon 09-29-2022 BASO # 0.0 103/ul Normal 0.0-0.1 [facility] Comment on above: Performed By: #### C BC ####[facility] Npueqgqukg7017 [place] [address]Dr. Garima Heraclio Basophils/100 WBC (Bld) 0.2 % Normal 0.2-2.0 [facility] Comment on above: Performed By: #### C BC ####[facility] Culkxgxaly0375 [place] [phone]. Garima Pulliam EO # 0.1 103/ul Normal 0.0-0.7 [facility] Comment on above: Performed By: #### C BC ####[facility] Jkmcppzyjx9874 [place] [phone]. Garima Pulliam Eosinophils/100 WBC (Bld) 1.4 % Normal 0.9-7.0 [facility] Comment on above: Performed By: #### C BC ####[facility] Emobalqnwq[address] [place], [place] [address]Dr. Garima Pulliam Erythrocyte distribution width (RBC) [Ratio] 13.7 % Normal 11.0-15.0 [facility] Comment on above: Performed By: #### C BC ####[facility] Cyrbmsshpz[address] [place], [place] [address]Dr. Garima Pulliam Hematocrit (Bld) [Volume fraction] 45.4 % Normal 42.0-54.0 [facility] Comment on above: Performed By: #### C BC ####[facility] Bodcnpnfwk[address] [place], [place] [address]Dr. Garima Pulliam Hemoglobin (Bld) [Mass/Vol] 14.8 g/dL Normal 14.0-18.0 [facility] Comment on above: Performed By: #### C BC ####[facility] T[address]vbwjxug98[address] [place], [place] [address]Dr. Garima uPlliam IG # 0.04 10e3/ul Critically high 0.00-0.03 [facility] Comment on above: Performed By: #### C BC ####[facility] Arrykqpyca[address] [place], [place] [address]Dr. Garima Pulliam IG % 0.5 % Normal 0.0-0.5 [facility] Comment on above: Performed By: #### C BC ####[facility] Oxzmmkorjs93[address] [place], [place] [address]Dr. Garima Pulliam LYMPH # 1.1 103/ul Critically low 1.2-3.[address] [facility] Comment on above: Performed By: #### C BC ####[facility] Slwvswdvxp3362 [place] [id number]. Garima Pulliam Lymphocytes/100 WBC (Bld) 12.7 % Critically low 20.5-60.0 [facility] Comment on above: Performed By: #### C BC ####[facility] Bjtyjntlra2128 [place] [phone]. Chapisrenu Pulliam MANUAL DIFF REQ NO Normal [facility] Comment on above: Performed By: #### C BC ####[facility] Xntumnjkrg[address] [place], [place] [address]Dr. Garima Heraclio MCH (RBC) [Entitic mass] 30.0 pg Normal 25.9-34.0 [facility] Comment on above: Performed By: #### C BC ####[facility] Qppdnmmdex6[address] [place], [place] [address]Dr. Garima Heraclio MCHC (RBC) [Mass/Vol] 32.6 g/dL Normal 29.9-35.2 [facility] Comment on above: Performed By: #### C BC ####[facility] Fltfpxqleb8[address] [place], [place] [address]Dr. Garima Heraclio MCV (RBC) [Entitic vol] 91.9 fL Normal 80.0-94.0 [facility] Comment on above: Performed By: #### C BC ####[facility] Hpsvinxynm[address] [place], [place] [address]Dr. Garima Pulliam MONO # 0.4 103/ul Normal 0.3-0.8 [facility] Comment on above: Performed By: #### C BC ####[facility] Eernlaoizt[address] [place], [place] [address]Dr. Chapisrenu Pulliam Monocytes/100 WBC (Bld) 4.8 % Normal 1.7-12.0 [facility] Comment on above: Performed By: #### C BC ####[facility] Olkwlgtuhh[address] [place], [place] [address]Dr. Garima Pulliam NEUT # 7.1 103/ul Critically high 1.4-6.5 [facility] Comment on above: Performed By: #### C BC ####[facility] Ypbmuiiptn3534 [place], [place] [address]Rz. Garima Pulliam Neutrophils/100 WBC (Bld) 80.4 % Critically high 43.0-75.0 [facility] Comment on above: Performed By: #### C BC ####[facility] Wibuhgcxvs0992 [place] [phone]. Garima Pulliam Platelet mean volume (Bld) [Entitic vol] 9.1 fL Critically low 9.5-13.5 [facility] Comment on above: Performed By: #### C BC ####[facility] Zxvjenwchv4820 [place] [phone]. Garima Pulliam PLT 200 103/ul Normal 150-450 [facility] Comment on above: Performed By: #### C BC ####[facility] Afwwrlevdf5670 [place] [phone]. Garima Pulliam RBC 4.94 106/ul Normal 4.70-6.10 [facility] Comment on above: Performed By: #### C BC ####[facility] Ezgvjnyspk4600 [place] [phone]. Garima Pulliam WBC 8.9 103/ul Normal 4.0-11.0 [facility] Comment on above: Performed By: #### C BC ####[facility] Begxltjscg0017 [place] [phone]. Garima Pulliam Covid-19 PCR (CVDTB)on SARS-CoV-2 (COVID-19) RNA MARIE+probe Ql (Unsp spec) Not detected Normal NOT DETECTED [facility] Comment on above: Result Comment: When [...] for this test is supported by the Division Traffic Superintendent of Health and Human Service's declaration that [...] used). Performed By: #### C VDTBH ####[facility] Dvdmhdyfkf0798 [place] [address]Dr. Garima Pulliam LACTATE/LACTIC ACIDon 2021 Lactate [Moles/Vol] 1.7 mmol/L Normal 0.4-1.9 [facility] Comment on above: Performed By: #### L ACT ####[facility] Dvjnjrbugc[address] [place], [place] [address]Dr. Garima Pulliam PROF 14(COMP METB)on 022 Albumin [Mass/Vol] 3.8 g/dL Normal 3.4-5.0 [facility] Comment on above: Performed By: #### C MP, BNP, CMADM ####[facility] Fzkwdnialy06[address] [place], [place] [address]Dr. Garima Pulliam Albumin/Globulin [Mass ratio] 1.5 {ratio} Normal [facility] Comment on above: Performed By: #### C MP, BNP, CMADM ####[facility] Ikqjpmvlwr7340 [place] [address]Dr. Garima Pulliam ALP [Catalytic activity/Vol] 62 U/L Normal 46-116 [facility] Comment on above: Performed By: #### C MP, BNP, CMADM ####[facility] Atqgxhorkb0809 [place] [address]Dr. Garima Pulliam ALT [Catalytic activity/Vol] 37 U/L Normal 16-63 [facility] Comment on above: Performed By: #### C MP, BNP, CMADM ####[facility] Pnhseworxb2434 [place] [address]Dr. Garima Pulliam Anion gap [Moles/Vol] 8.0 mmol/L Normal [facility] Comment on above: Performed By: #### C MP, BNP, CMADM ####[facility] Tmfddlqgbs9280 [place] [address]Dr. Garima Pulliam AST [Catalytic activity/Vol] 20 U/L Normal 15-37 [facility] Comment on above: Performed By: #### C MP, BNP, CMADM ####[facility] Zwqefxlcsp6375 [place] [address]Dr. Garima Pulliam Bilirubin [Mass/Vol] 0.6 mg/dL Normal 0.2-1.0 [facility] Comment on above: Performed By: #### C MP, BNP, CMADM ####[facility] Fzmatjxwbk3457 [place] [address]Dr. Garima Pulliam Calcium [Mass/Vol] 9.1 mg/dL Normal 8.5-10.1 [facility] Comment on above: Performed By: #### C MP, BNP, CMADM ####[facility] Byutoxtzef[address] [place], [place] [address]Dr. Garima Pulliam Chloride [Moles/Vol] 103 mmol/L Normal 98-107 [facility] Comment on above: Performed By: #### C MP, BNP, CMADM ####[facility] Dazfsjdain[address] [place], [place] [address]Dr. Garima Pulliam CO2 [Moles/Vol] 31.8 mmol/L Normal 21.0-32.0 [facility] Comment on above: Performed By: #### C MP, BNP, CMADM ####[facility] Gdeoobcqgo[address] [place], [place] [address]Dr. Garima Pulliam Creatinine [Mass/Vol] 0.63 mg/dL Critically low 0.70-1.30 [facility] Comment on above: Performed By: #### C MP, BNP, CMADM ####[facility] [address]sfxabg[address] [place], [place] [address]Dr. Garima Pulliam EGFR-AF PALAUAN >60 Normal >=60 [facility] Comment on above: Performed By: #### C MP, BNP, CMADM ####[facility] Fmscunmetl89[address] [place], [place] [address]Dr. Garima Pulliam EGFR-NON AF PALAUAN >60 Normal >=60 [facility] Comment on above: Performed By: #### C MP, BNP, CMADM ####[facility] Isoforaglr7879 [place] [address]Dr. Garima Pulliam Globulin (S) [Mass/Vol] 2.6 g/dL Normal [facility] Comment on above: Performed By: #### C MP, BNP, CMADM ####[facility] Dktbhjqkui7879 [place] [address]Dr. Garima Pulliam Glucose [Mass/Vol] 103 mg/dL Normal 74-106 [facility] Comment on above: Performed By: #### C MP, BNP, CMADM ####[facility] Zjjizgckvx6242 [place] [address]Dr. Garima Pulliam Potassium [Moles/Vol] 3.8 mmol/L Normal 3.5-5.1 [facility] Comment on above: Performed By: #### C MP, BNP, CMADM ####[facility] Azgbjuthkf0652 [place] [address]Dr. Garima Pulliam Protein [Mass/Vol] 6.4 g/dL Normal 6.4-8.2 [facility] Comment on above: Performed By: #### C MP, BNP, CMADM ####[facility] Unsdhpdppn2131 [place] [address]Dr. Garima Pulliam Sodium [Moles/Vol] 139 mmol/L Normal 136-145 [facility] Comment on above: Performed By: #### C MP, BNP, CMADM ####[facility] Hgapdatgrc1225 [place] [address]Dr. Garima Pulliam Urea nitrogen [Mass/Vol] 7.0 mg/dL Normal 7.0-18.0 [facility] Comment on above: Performed By: #### C MP, BNP, CMADM ####[facility] Jftfwjpxko8457 [place] [address]Dr. Garima Pulliam Urea nitrogen/Creatinine [Mass ratio] 11.1 mg/mg Normal [facility] Comment on above: Performed By: #### C MP, BNP, CMADM ####[facility] Svmknhvrkg9288 [place] [address]Dr. Garima Pulliam PROTIMEon 09-29-2022 INR Coag (PPP) [Relative time] 1.14 {INR} Normal [facility] Comment on above: Performed By: #### P T, PTT ####[facility] Lokcfnzaek[address] [place], [place] [address]Dr. Garima Pulliam INR GUIDELINES SEE BELOW Normal [facility] Comment on above: Result Comment: WESLEY RED INR: 2.0 - 3.0 CONDITIONS NOT LISTED BELOW 2.5 - 3.5 FOR PROSTHETIC HEART VALVE REPLACEMENT 2.5 - 3.5 RECURRENT THROMBOSIS Performed By: #### P T, PTT ####[facility] Fvyynknnle[address] [place], [place] [address]Dr. Garima Pulliam PT Coag (PPP) [Time] 12.2 s Critically high 9.0-11.6 [facility] Comment on above: Performed By: #### P T, PTT ####[facility] Qdbraofjul[address] [place], [place] [address]Dr. Garima Pulliam PTTon 09-29-2022 aPTT Coag (Bld) [Time] 29.3 s Normal 22.3-36.2 [facility] Comment on above: Performed By: #### P T, PTT ####[facility] Cfppphicry19[address] [place], [place] [address]Dr. Garima Pulliam XR CHEST 1 Von 09-29-2022 XR CHEST 1 V Normal [facility] CBC AUTO DIFFon 09-26-2022 BASO # 0.0 103/ul Normal 0.0-0.1 [facility] Comment on above: Performed By: #### C BC ####[facility] Kenhoxeyiv[address] [place], [place] [address]Dr. Garima Pulliam Basophils/100 WBC (Bld) 0.2 % Normal 0.2-2.0 [facility] Comment on above: Performed By: #### C BC ####[facility] Ciqpbbanee[address] [place], [place] [address]Dr. Garima Pulliam EO # 0.1 103/ul Normal 0.0-0.7 [facility] Comment on above: Performed By: #### C BC ####[facility] Eqsxpgyqro30[address] [place], [place] [address]Dr. Garima Pulliam Eosinophils/100 WBC (Bld) 1.0 % Normal 0.9-7.0 [facility] Comment on above: Performed By: #### C BC ####[facility] Zvhuakvarh[address] [place], [place] [address]Dr. Garima Pulliam Erythrocyte distribution width (RBC) [Ratio] 13.4 % Normal 11.0-15.0 [facility] Comment on above: Performed By: #### C BC ####[facility] Airooohszk[address] [place], [place] [address]Dr. Garima Pulliam Hematocrit (Bld) [Volume fraction] 46.3 % Normal 42.0-54.0 [facility] Comment on above: Performed By: #### C BC ####[facility] S[address]kqrntqu[address] [place], [place] [address]Dr. Garima Pulliam Hemoglobin (Bld) [Mass/Vol] 15.3 g/dL Normal 14.0-18.0 [facility] Comment on above: Performed By: #### C BC ####[facility] Kqvjnygbeu[address] [place], [place] [address]Dr. Garima Pulliam IG # 0.05 10e3/ul Critically high 0.00-0.03 [facility] Comment on above: Performed By: #### C BC ####[facility] Lgfbmwkrng313[address] [place], [place] [address]Dr. Garima Pulliam IG % 0.4 % Normal 0.0-0.5 [facility] Comment on above: Performed By: #### C BC ####[facility] Xcwpckdbhf8[address] [place], [place] [address]Dr. Garima Pulliam LYMPH # 1.7 103/ul Normal 1.2-3.8 [facility] Comment on above: Performed By: #### C BC ####[facility] Eurljdmelc54[address] [place], [place] [address]Dr. Garima Pulliam Lymphocytes/100 WBC (Bld) 12.7 % Critically low 20.5-60.0 [facility] Comment on above: Performed By: #### C BC ####[facility] Qsuolacfao8[address] [place] [address]DrAdalberto Pulliam MANUAL DIFF REQ NO Normal [facility] Comment on above: Performed By: #### C BC ####[facility] Riapssxvzn7[address] [place] [address]Dr. Garima Pulliam MCH (RBC) [Entitic mass] 30.1 pg Normal 25.9-34.0 [facility] Comment on above: Performed By: #### C BC ####[facility] Coljcjnazx[address] [place], [place] [address]Dr. Garima Pulliam MCHC (RBC) [Mass/Vol] 33.0 g/dL Normal 29.9-35.2 [facility] Comment on above: Performed By: #### C BC ####[facility] Yoqhrejdbh43[address] [place], [place] [address]DrAdalberto Pulliam MCV (RBC) [Entitic vol] 91.1 fL Normal 80.0-94.0 [facility] Comment on above: Performed By: #### C BC ####[facility] Uauhqgntyz[address] [place], [place] [address]DrAdalberto Pulliam MONO # 0.9 103/ul Critically high 0.3-0.8 [facility] Comment on above: Performed By: #### C BC ####[facility] Vfqffgplfg564[address] [place], [place] [address]DrAdalberto Pulliam Monocytes/100 WBC (Bld) 7.0 % Normal 1.7-12.0 [facility] Comment on above: Performed By: #### C BC ####[facility] Ketastyksz[address] [place], [place] [address]DrAdalberto Pulliam NEUT # 10.4 103/ul Critically high 1.4-6.5 [facility] Comment on above: Performed By: #### C BC ####[facility] Kibuywsdso019[address] [place], [place] [address]DrAdalberto Pulliam Neutrophils/100 WBC (Bld) 78.7 % Critically high 43.0-75.0 [facility] Comment on above: Performed By: #### C BC ####[facility] Rrsztkgcmd9031 [place] [address]Dr. Garima Pulliam Platelet mean volume (Bld) [Entitic vol] 8.9 fL Critically low 9.5-13.5 [facility] Comment on above: Performed By: #### C BC ####[facility] Vjifqlxzvl3515 [place] [address]Dr. Garima Pulliam PLT 195 103/ul Normal 150-450 [facility] Comment on above: Performed By: #### C BC ####[facility] Qscyxqmcxs305[address] [place], [place] [address]Dr. Garima Pulliam RBC 5.08 106/ul Normal 4.70-6.10 [facility] Comment on above: Performed By: #### C BC ####[facility] Tyvsmabkev038[address] [place], [place] [address]Dr. Garima Pulliam WBC 13.2 103/ul Critically high 4.0-11.0 [facility] Comment on above: Performed By: #### C BC ####[facility] Wxjvfvvhji6[address] [place], [place] [address]Dr. Garima Pulliam PROF 14(COMP METB)on 022 Albumin [Mass/Vol] 3.5 g/dL Normal 3.4-5.0 [facility] Comment on above: Performed By: #### C DAVID HSTROPN ####[facility] Awzenpbfxi67[address] [place] [address]Dr. Garima Pulliam Albumin/Globulin [Mass ratio] 1.2 {ratio} Normal [facility] Comment on above: Performed By: #### C RAFAT HERNANDEZTROPN ####[facility] Frdopdpzxx1879 [place] [address]Dr. Garima Pulliam ALP [Catalytic activity/Vol] 71 U/L Normal 46-116 [facility] Comment on above: Performed By: #### C DAVID HSTROPN ####[facility] Ruvoqgkzzs5761 [place] [address]Dr. Garima Pulliam ALT [Catalytic activity/Vol] 37 U/L Normal 16-63 [facility] Comment on above: Performed By: #### C DAVID, HSTROPN ####[facility] Xtmlasxiee0013 [place] [address]Dr. Garima Pulliam Anion gap [Moles/Vol] 4.8 mmol/L Normal [facility] Comment on above: Performed By: #### C DAVID, HSTROPN ####[facility] Irxagmaqmz0124[address] [place], [place] [address]Dr. Garima Pulliam AST [Catalytic activity/Vol] 21 U/L Normal 15-37 [facility] Comment on above: Performed By: #### C DAVID, HSTROPN ####[facility] Vdqwilztas8807[address] [place], [place] [address]Dr. Garima Pulliam Bilirubin [Mass/Vol] 0.3 mg/dL Normal 0.2-1.0 [facility] Comment on above: Performed By: #### C DAVID, HSTROPN ####[facility] Iplexnhsji9965 [place] [address]Dr. Garima Pulliam Calcium [Mass/Vol] 8.9 mg/dL Normal 8.5-10.1 [facility] Comment on above: Performed By: #### C DAVID, HSTROPN ####[facility] Bbwkupegly0063 [place] [address]Dr. Garima Pulliam Chloride [Moles/Vol] 106 mmol/L Normal 98-107 [facility] Comment on above: Performed By: #### C DAVID, HSTROPN ####[facility] Duigenvgcc7354 [place] [address]Dr. Garima Pulliam CO2 [Moles/Vol] 29.8 mmol/L Normal 21.0-32.0 [facility] Comment on above: Performed By: #### C DAVID, HSTROPN ####[facility] Welzmyuddt2924 [place] [address]Dr. Garima Pulliam Creatinine [Mass/Vol] 0.68 mg/dL Critically low 0.70-1.30 [facility] Comment on above: Performed By: #### C MP, HSTROPN ####[facility] Bhetvjyrsy9[address] [place] [address]Dr. Garima Pulliam EGFR-AF PALAUAN >60 Normal >=60 [facility] Comment on above: Performed By: #### C MP, HSTROPN ####[facility] Syasoqhvcz40[address] [place] [address]Dr. Chapislan Pulliam EGFR-NON AF PALAUAN >60 Normal >=60 [facility] Comment on above: Performed By: #### C MP, HSTROPN ####[facility] Szvgxvqqvk8497 [place] [address]Dr. Garima Pulliam Globulin (S) [Mass/Vol] 2.8 g/dL Normal [facility] Comment on above: Performed By: #### C MP, HSTROPN ####[facility] Txyokwtyqi3785 [place] [address]Dr. Garima Pulliam Glucose [Mass/Vol] 133 mg/dL Critically high 74-106 [facility] Comment on above: Performed By: #### C MP, HSTROPN ####[facility] Ziodlxyxfp3678 [place] [address]Dr. Chapisrenu Pulliam Potassium [Moles/Vol] 3.6 mmol/L Normal 3.5-5.1 [facility] Comment on above: Performed By: #### C MP, HSTROPN ####[facility] Copciufbhx2003 [place] [address]Dr. Chapisrenu Pulliam Protein [Mass/Vol] 6.3 g/dL Critically low 6.4-8.2 [facility] Comment on above: Performed By: #### C MP, HSTROPN ####[facility] Ngkidbicxs687[address] [place], [place] [address]Dr. Chapisrenu Pulliam Sodium [Moles/Vol] 137 mmol/L Normal 136-145 [facility] Comment on above: Performed By: #### C MP, HSTROPN ####[facility] Apwfzoldkm74[address] [place], [place] [address]Dr. Garima Pulliam Urea nitrogen [Mass/Vol] 15.0 mg/dL Normal 7.0-18.0 [facility] Comment on above: Performed By: #### C DAVID HSTROPN ####[facility] Zgnjvhfoiq5729 [place] [address]Dr. Chapisrenu Pulliam Urea nitrogen/Creatinine [Mass ratio] 22.1 mg/mg Normal [facility] Comment on above: Performed By: #### C DAVID HSTROPN ####[facility] Rzrqhdkskq6050 [place] [address]Dr. Garima Heraclio TROPONIN, HIGH SENSITIVITYon 09-26-2022 HSTROP 12.8 pg/mL Normal 4.0-76.1 [facility] Comment on above: Result Comment: CUT- OFF POINTS HAVE BEEN ESTABLISHED BASED ON THE FOURTH UNIVERSAL DEFINITIONS OF MYOCARDIALINFARCTION. THE UPPER REFERENCE LIMIT (URL) OF TROPONIN, DEFINED THE 99TH PERCENTILE OFcTnI DISTRIBUTION IN A REFERENCE POPULATION, HAS BEEN CONFIRMED THE DECISION THRESHOLDFOR [place] DIAGNOSIS. Performed By: #### C DAVID HSTROPN ####[facility] Qsnrovgxmg7287 [place] [address]Dr. Chapisrenu Pulliam XR CHEST 1 Von 09-26-2022 XR CHEST 1 V Normal [facility] XR CHEST 1 Von 09-16-2022 XR CHEST 1 V Normal [facility] CBC AUTO DIFFon 09-15-2022 BASO # 0.0 103/ul Normal 0.0-0.1 [facility] Comment on above: Performed By: #### C BC ####[facility] Ilvbsnnkln0250 [place] [address]Dr. Garima Heraclio Basophils/100 WBC (Bld) 0.1 % Critically low 0.2-2.0 [facility] Comment on above: Performed By: #### C BC ####[facility] Nrwqeuuegy6941 [place] [address]Dr. Garima Pulliam EO # 0.0 103/ul Normal 0.0-0.7 [facility] Comment on above: Performed By: #### C BC ####[facility] Scahrvzmlp0920 [place] [address]Dr. Garima Pulliam Eosinophils/100 WBC (Bld) 0.1 % Critically low 0.9-7.0 [facility] Comment on above: Performed By: #### C BC ####[facility] Eksurrkxhi8746 [place] [address]Dr. Garima Pulliam Erythrocyte distribution width (RBC) [Ratio] 14.1 % Normal 11.0-15.0 [facility] Comment on above: Performed By: #### C BC ####[facility] Xjfixjxhsd422[address] [place], [place] [address]Dr. Garima Pulliam Hematocrit (Bld) [Volume fraction] 46.1 % Normal 42.0-54.0 [facility] Comment on above: Performed By: #### C BC ####[facility] Bqzipteweh214[address] [place], [place] [address]Dr. Garima Pulliam Hemoglobin (Bld) [Mass/Vol] 15.0 g/dL Normal 14.0-18.0 [facility] Comment on above: Performed By: #### C BC ####[facility] Hndmhldldp27[address] [place], [place] [address]Dr. Garima Pulliam IG # 0.03 10e3/ul Normal 0.00-0.03 [facility] Comment on above: Performed By: #### C BC ####[facility] Qpawurtdlq01[address] [place], [place] [address]Dr. Garima Pulliam IG % 0.3 % Normal 0.0-0.5 [facility] Comment on above: Performed By: #### C BC ####[facility] Bfnjqqnxdw160[address] [place], [place] [address]Dr. Garima Pulliam LYMPH # 0.6 103/ul Critically low 1.2-3.[address] [facility] Comment on above: Performed By: #### C BC ####[facility] Ftglwafjtv34[address] [place], [place] [address]Dr. Garima Pulliam Lymphocytes/100 WBC (Bld) 5.8 % Critically low 20.5-60.0 [facility] Comment on above: Performed By: #### C BC ####[facility] Oojpxowqxh0544 [place] [id number]. Garima Pulliam MANUAL DIFF REQ NO Normal [facility] Comment on above: Performed By: #### C BC ####[facility] Sccqinwuyr7535 [place] [id number]. Garima Pulliam MCH (RBC) [Entitic mass] 30.2 pg Normal 25.9-34.0 [facility] Comment on above: Performed By: #### C BC ####[facility] Aaoraboytu7920 [place] [address]Dr. Garima Pulliam MCHC (RBC) [Mass/Vol] 32.5 g/dL Normal 29.9-35.2 [facility] Comment on above: Performed By: #### C BC ####[facility] Rjxouumajh8267 [place] [address]Dr. Garima Pulliam MCV (RBC) [Entitic vol] 92.8 fL Normal 80.0-94.0 [facility] Comment on above: Performed By: #### C BC ####[facility] Nmqmyanybc1579 [place] [address]Dr. Garima Heraclio MONO # 0.3 103/ul Normal 0.3-0.8 [facility] Comment on above: Performed By: #### C BC ####[facility] Iknzdgmflw5915 [place] [id number]. Garima Heraclio Monocytes/100 WBC (Bld) 3.2 % Normal 1.7-12.0 [facility] Comment on above: Performed By: #### C BC ####[facility] Dphbosvnep4316 [place] [id number]. Garima Pulliam NEUT # 9.8 103/ul Critically high 1.4-6.5 [facility] Comment on above: Performed By: #### C BC ####[facility] Onfiastqyr4048 [place] [phone]. Garima Pulliam Neutrophils/100 WBC (Bld) 90.5 % Critically high 43.0-75.0 [facility] Comment on above: Performed By: #### C BC ####[facility] Sotomkawqd5702 [place] [id number]. Garima Pulliam Platelet mean volume (Bld) [Entitic vol] 9.4 fL Critically low 9.5-13.5 [facility] Comment on above: Performed By: #### C BC ####[facility] Kfdzfjqvun6321 [place] [phone]. Garima Pulliam PLT 208 103/ul Normal 150-450 [facility] Comment on above: Performed By: #### C BC ####[facility] Inekxrpjij6990 [place] [address]Dr. Garima Pulliam RBC 4.97 106/ul Normal 4.70-6.10 [facility] Comment on above: Performed By: #### C BC ####[facility] Edxqbyvsyf7467 [place] [address]Dr. Garima Pulliam WBC 10.8 103/ul Normal 4.0-11.0 [facility] Comment on above: Performed By: #### C BC ####[facility] Hsgcfnukhq4702 [place] [address]Dr. Garima Pulliam PROF 14(COMP METB)on 022 Albumin [Mass/Vol] 4.0 g/dL Normal 3.4-5.0 [facility] Comment on above: Performed By: #### C MP ####[facility] Rcvzwdxjed6805 [place] [address]Dr. Garima Pulliam Albumin/Globulin [Mass ratio] 1.5 {ratio} Normal [facility] Comment on above: Performed By: #### C MP ####[facility] Rnrxsurgwz6342 [place] [address]Dr. Garima Pulliam ALP [Catalytic activity/Vol] 73 U/L Normal 46-116 [facility] Comment on above: Performed By: #### C MP ####[facility] Twiabypttk2128 [place] [address]Dr. Garima Pulliam ALT [Catalytic activity/Vol] 42 U/L Normal 16-63 [facility] Comment on above: Performed By: #### C MP ####[facility] Evwzymxfrj9384 [place] [address]Dr. Garima Pulliam Anion gap [Moles/Vol] 9.1 mmol/L Normal [facility] Comment on above: Performed By: #### C MP ####[facility] Ybtcwpxbjy[address] [place], [place] [address]Dr. Garima Pulliam AST [Catalytic activity/Vol] 28 U/L Normal 15-37 [facility] Comment on above: Performed By: #### C MP ####[facility] Nqwvgzmsya69[address] [place], [place] [address]Dr. Garima Pulliam Bilirubin [Mass/Vol] 0.6 mg/dL Normal 0.2-1.0 [facility] Comment on above: Performed By: #### C MP ####[facility] Ugsagxptvd7[address] [place], [place] [address]Dr. Garima Pulliam Calcium [Mass/Vol] 8.6 mg/dL Normal 8.5-10.1 The [facility] Comment on above: Performed By: #### C MP ####[facility] Mcrovxqstw708[address] [place], [place] [address]Dr. Garima Pulliam Chloride [Moles/Vol] 105 mmol/L Normal 98-107 [facility] Comment on above: Performed By: #### C MP ####[facility] Zfnyicslpy03[address] [place], [place] [address]Dr. Garima Pulliam CO2 [Moles/Vol] 28.5 mmol/L Normal 21.0-32.0 [facility] Comment on above: Performed By: #### C MP ####[facility] Vxrelfkolp98[address] [place], [place] [address]Dr. Garima Heraclio Creatinine [Mass/Vol] 0.78 mg/dL Normal 0.70-1.30 [facility] Comment on above: Performed By: #### C MP ####[facility] Dgkdyigxpn5[address] [place], [place] [address]Dr. Chapisrenu Heraclio EGFR-AF PALAUAN >60 Normal >=60 [facility] Comment on above: Performed By: #### C MP ####[facility] Kkpvacyqjn3530[address] [place], [place] [address]Dr. Garima Pulliam EGFR-NON AF PALAUAN >60 Normal >=60 [facility] Comment on above: Performed By: #### C MP ####[facility] Qozmfnmmxg0368 [place] [address]Dr. Garima Pulliam Globulin (S) [Mass/Vol] 2.7 g/dL Normal [facility] Comment on above: Performed By: #### C MP ####[facility] Lfcdjnyntx3551 [place] [address]Dr. Garima Pulliam Glucose [Mass/Vol] 220 mg/dL Critically high 74-106 [facility] Comment on above: Performed By: #### C MP ####[facility] Xfkwyahxss[address] [place] [address]Dr. Garima Pulliam Potassium [Moles/Vol] 3.6 mmol/L Normal 3.5-5.1 [facility] Comment on above: Performed By: #### C MP ####[facility] Mlpcfhiifi85[address] [place], [place] [address]Dr. Garima Pulliam Protein [Mass/Vol] 6.7 g/dL Normal 6.4-8.2 [facility] Comment on above: Performed By: #### C MP ####[facility] Cpwpjjdzhu[address] [place], [place] [address]Dr. Garima Pulliam Sodium [Moles/Vol] 139 mmol/L Normal 136-145 [facility] Comment on above: Performed By: #### C MP ####[facility] Yxpuvzbyiw93[address] [place], [place] [address]Dr. Garima Pulliam Urea nitrogen [Mass/Vol] 11.0 mg/dL Normal 7.0-18.0 [facility] Comment on above: Performed By: #### C MP ####[facility] Iwmhukdtpr413[address] [place], [place] [address]Dr. Garima Pulliam Urea nitrogen/Creatinine [Mass ratio] 14.1 mg/mg Normal [facility] Comment on above: Performed By: #### C MP ####[facility] Rdpvqirxav420[address] [place], [place] [address]Dr. Garima Pulliam CARDIAC NASH 3-6on 2 CK [Catalytic activity/Vol] 240 U/L Normal 39-308 [facility] Comment on above: Performed By: #### C MREP ####[facility] Tmvzqllwjb3315 [place] [address]Dr. Garima Pulliam CK.MB [Mass/Vol] 10.38 ng/mL Critically high <=3.60 [facility] Comment on above: Performed By: #### C MREP ####[facility] Ekhyqkgwwl9346 [place] [address]Dr. Garima Pulliam HSTROP 18.5 pg/mL Normal 4.0-76.1 [facility] Comment on above: Result Comment: CUT- OFF POINTS HAVE BEEN ESTABLISHED BASED ON THE FOURTH UNIVERSAL DEFINITIONS OF MYOCARDIALINFARCTION. THE UPPER REFERENCE LIMIT (URL) OF TROPONIN, DEFINED THE 99TH PERCENTILE OFcTnI DISTRIBUTION IN A REFERENCE POPULATION, HAS BEEN CONFIRMED THE DECISION THRESHOLDFOR [place] DIAGNOSIS. Performed By: #### C MREP ####[facility] Fugwyjnava8866 [place] [address]Dr. Garima Pulliam CK [Catalytic activity/Vol] 257 U/L Normal 39-308 [facility] Comment on above: Performed By: #### C MREP ####[facility] Embrgsclnd[address] [place], [place] [address]Dr. Garima Pulliam CK.MB [Mass/Vol] 9.89 ng/mL Critically high <=3.60 [facility] Comment on above: Performed By: #### C MREP ####[facility] Lehuxfqpuh[address] [place], [place] [address]Dr. Garima Pulliam HSTROP 16.9 pg/mL Normal 4.0-76.1 [facility] Comment on above: Result Comment: CUT- OFF POINTS HAVE BEEN ESTABLISHED BASED ON THE FOURTH UNIVERSAL DEFINITIONS OF MYOCARDIALINFARCTION. THE UPPER REFERENCE LIMIT (URL) OF TROPONIN, DEFINED THE 99TH PERCENTILE OFcTnI DISTRIBUTION IN A REFERENCE POPULATION, HAS BEEN CONFIRMED THE DECISION THRESHOLDFOR [place] DIAGNOSIS. Performed By: #### C MREP ####[facility] Tltchcefnf1195 [place] [address]Dr. Garima Heraclio CBC AUTO DIFFon 10-22-2022 BASO # 0.0 103/ul Normal 0.0-0.1 [facility] Comment on above: Performed By: #### C BC ####[facility] Qlaodvleuu3115 [place] [id number]. Garima Pulliam Basophils/100 WBC (Bld) 0.1 % Critically low 0.2-2.0 [facility] Comment on above: Performed By: #### C BC ####[facility] Jtedwwsqxq7507 [place] [address]Dr. Garima Pulliam EO # 0.0 103/ul Normal 0.0-0.7 [facility] Comment on above: Performed By: #### C BC ####[facility] Dnxerqqvfu887[address] [place], [place] [address]Dr. Chapisrenu Heraclio Eosinophils/100 WBC (Bld) 0.0 % Critically low 0.9-7.0 [facility] Comment on above: Performed By: #### C BC ####[facility] Gpntmvyeet688[address] [place], [place] [address]Dr. Garima Pulliam Erythrocyte distribution width (RBC) [Ratio] 13.6 % Normal 11.0-15.0 [facility] Comment on above: Performed By: #### C BC ####[facility] Zlgtlhvslu7[address] [place], [place] [address]Dr. Garima Pulliam Hematocrit (Bld) [Volume fraction] 48.2 % Normal 42.0-54.0 [facility] Comment on above: Performed By: #### C BC ####[facility] Luiqwkaxsi846[address] [place], [place] [address]Dr. Garima Pulliam Hemoglobin (Bld) [Mass/Vol] 16.0 g/dL Normal 14.0-18.0 [facility] Comment on above: Performed By: #### C BC ####[facility] Jzrohhwezm10[address] [place], [place] [address]Dr. Chapisrenu Heraclio IG # 0.02 10e3/ul Normal 0.00-0.03 [facility] Comment on above: Performed By: #### C BC ####[facility] Ngmairvlig8801 [place] [id number]. Garima Pulliam IG % 0.3 % Normal 0.0-0.5 [facility] Comment on above: Performed By: #### C BC ####[facility] Svhkvoactc4715 [place] [address]Dr. Garima Heraclio LYMPH # 0.5 103/ul Critically low 1.2-3.[address] [facility] Comment on above: Performed By: #### C BC ####[facility] Wkvonprphc6681 [place] [address]Dr. Garima Heraclio Lymphocytes/100 WBC (Bld) 7.7 % Critically low 20.5-60.0 [facility] Comment on above: Performed By: #### C BC ####[facility] Vcrkwffweg[address] [place], [place] [address]Dr. Chapisrenu Pulliam MANUAL DIFF REQ NO Normal [facility] Comment on above: Performed By: #### C BC ####[facility] Ziqlieixzp[address] [place], [place] [address]Dr. Garima Heraclio MCH (RBC) [Entitic mass] 30.6 pg Normal 25.9-34.0 [facility] Comment on above: Performed By: #### C BC ####[facility] [address]wzrrshoj[address] [place], [place] [address]Dr. Garima Pulliam MCHC (RBC) [Mass/Vol] 33.2 g/dL Normal 29.9-35.2 [facility] Comment on above: Performed By: #### C BC ####[facility] Sxljjawkww23[address] [place], [place] [address]Dr. Garima Heraclio MCV (RBC) [Entitic vol] 92.2 fL Normal 80.0-94.0 [facility] Comment on above: Performed By: #### C BC ####[facility] Rzpklmatnw83[address] [place], [place] [address]Dr. Garima Pulliam MONO # 0.0 103/ul Critically low 0.3-0.[address] [facility] Comment on above: Performed By: #### C BC ####[facility] Yqhxvhdjoq1514 [place] [id number]. Garima Pulliam Monocytes/100 WBC (Bld) 0.4 % Critically low 1.7-12.0 [facility] Comment on above: Performed By: #### C BC ####[facility] Wldbeefctm4518 [place] [id number]. Garima Pulliam NEUT # 6.2 103/ul Normal 1.4-6.5 [facility] Comment on above: Performed By: #### C BC ####[facility] Iguzrsuhlh9843 [place] [address]Dr. Garima Pulliam Neutrophils/100 WBC (Bld) 91.5 % Critically high 43.0-75.0 [facility] Comment on above: Performed By: #### C BC ####[facility] Ucyoxajbsw2025 [place] [address]Dr. Garima Pulliam Platelet mean volume (Bld) [Entitic vol] 8.7 fL Critically low 9.5-13.5 [facility] Comment on above: Performed By: #### C BC ####[facility] Ximxybivzr8640 [place] [address]Dr. Garima Pulliam PLT 179 103/ul Normal 150-450 [facility] Comment on above: Performed By: #### C BC ####[facility] Lhyseiqjvh4462 [place] [id number]. Garima Pulliam RBC 5.23 106/ul Normal 4.70-6.10 [facility] Comment on above: Performed By: #### C BC ####[facility] Uyqdkglitl6438 [place] [address]Dr. Garima Pulliam WBC 6.7 103/ul Normal 4.0-11.0 [facility] Comment on above: Performed By: #### C BC ####[facility] Fjpdvmbkrc1510 [place] [address]Dr. Garima Pulliam PROF CHEM 8 (BAS METB)on Anion gap [Moles/Vol] 12.1 mmol/L Normal Th [facility] Comment on above: Performed By: #### B MP ####[facility] Hivwngtfhn7909 [place] [id number]. Garima Pulliam Calcium [Mass/Vol] 8.7 mg/dL Normal 8.5-10.1 [facility] Comment on above: Performed By: #### B MP ####[facility] Licegjyigz9900 [place] [id number]. Garima Pulliam Chloride [Moles/Vol] 105 mmol/L Normal 98-107 [facility] Comment on above: Performed By: #### B MP ####[facility] Gwhobnhrtq8052 [place] [id number]. Garima Pulliam CO2 [Moles/Vol] 25.5 mmol/L Normal 21.0-32.0 [facility] Comment on above: Performed By: #### B MP ####[facility] Sexkxkqqum1082 [place] [address]Dr. Garima Pulliam Creatinine [Mass/Vol] 0.63 mg/dL Critically low 0.70-1.30 [facility] Comment on above: Performed By: #### B MP ####[facility] Jcgififfkp3494 [place] [address]Dr. Garima Pulliam EGFR-AF PALAUAN >60 Normal >=60 [facility] Comment on above: Performed By: #### B MP ####[facility] Jvyulicjmg3729 [place] [address]Dr. Garima Pulliam EGFR-NON AF PALAUAN >60 Normal >=60 [facility] Comment on above: Performed By: #### B MP ####[facility] Lunsgnzijp4434 [place] [address]Dr. Garima Pulliam Glucose [Mass/Vol] 162 mg/dL Critically high 74-106 [facility] Comment on above: Performed By: #### B MP ####[facility] [address] [place], [place] [address]Dr. Garima Pulliam Potassium [Moles/Vol] 3.6 mmol/L Normal 3.5-5.1 [facility] Comment on above: Performed By: #### B MP ####[facility] [address] [place], [place] [address]Dr. Garima Pulliam Sodium [Moles/Vol] 139 mmol/L Normal 136-145 [facility] Comment on above: Performed By: #### B DAVID ####[facility] Syjshlklit2515 [place] [address]Dr. Garima Pulliam Urea nitrogen [Mass/Vol] 9.0 mg/dL Normal 7.0-18.0 [facility] Comment on above: Performed By: #### B DAVID ####[facility] Bnkhrgrgvr0957 [place] [address]Dr. Garima Pulliam Urea nitrogen/Creatinine [Mass ratio] 14.3 mg/mg Normal [facility] Comment on above: Performed By: #### B DAVID ####[facility] Gkmtwpbjtd7128 [place] [address]Dr. Chapisrenu Pulliam CARDIAC NASH ADMITon 09-12- 022 CK [Catalytic activity/Vol] 304 U/L Normal 39-308 [facility] Comment on above: Performed By: #### B NANCY HERNANDEZ ####[facility] Mdtekmbage2989 [place] [address]Dr. Garima Pulliam CK.MB [Mass/Vol] 11.81 ng/mL Critically high <=3.60 [facility] Comment on above: Performed By: #### B NANCY HERNANDEZ ####[facility] Abezndnsyf5621 [place] [address]Dr. Garima Heraclio HSTROP 13.3 pg/mL Normal 4.0-76.1 [facility] Comment on above: Result Comment: CUT- OFF POINTS HAVE BEEN ESTABLISHED BASED ON THE FOURTH UNIVERSAL DEFINITIONS OF MYOCARDIALINFARCTION. THE UPPER REFERENCE LIMIT (URL) OF TROPONIN, DEFINED THE 99TH PERCENTILE OFcTnI DISTRIBUTION IN A REFERENCE POPULATION, HAS BEEN CONFIRMED THE DECISION THRESHOLDFOR NV DIAGNOSIS. Performed By: #### B NANCY HERNANDEZ ####[facility] Chnvmicvvv3242 [place] [address]Dr. Garima Pulliam DORIS 133 ng/mL Critically high 16-96 [place] Comment on above: Performed By: #### B NANCY HERNANDEZ ####[facility] Ewkauyxxbg6689 [place] [address]Dr. Garima Pulliam CBC AUTO DIFFon 09-12-2022 BASO # 0.0 103/ul Normal 0.0-0.1 [facility] Comment on above: Performed By: #### C BC ####[facility] S[address] [place], [place] [id number]. Garima Heraclio Basophils/100 WBC (Bld) 0.2 % Normal 0.2-2.0 [facility] Comment on above: Performed By: #### C BC ####[facility] Zmoclsfoek[address] [place], [place] [address]Dr. Garima Heraclio EO # 0.2 103/ul Normal 0.0-0.7 [facility] Comment on above: Performed By: #### C BC ####[facility] [address]fsfsf[address]ir[address] [place], [place] [address]Dr. Chapisrenu Pulliam Eosinophils/100 WBC (Bld) 1.3 % Normal 0.9-7.0 [facility] Comment on above: Performed By: #### C BC ####[facility] Qxfh[address]ckmu[address] [place], [place] [address]Dr. Garima Pulliam Erythrocyte distribution width (RBC) [Ratio] 13.7 % Normal 11.0-15.0 [facility] Comment on above: Performed By: #### C BC ####[facility] Mmmzjsarix[address] [place], [place] [address]Dr. Garima Pulliam Hematocrit (Bld) [Volume fraction] 46.4 % Normal 42.0-54.0 [facility] Comment on above: Performed By: #### C BC ####[facility] Bpsxlifexj[address] [place], [place] [address]Dr. Garima Pulliam Hemoglobin (Bld) [Mass/Vol] 15.7 g/dL Normal 14.0-18.0 [facility] Comment on above: Performed By: #### C BC ####[facility] [address]flh[address] [place], [place] [address]Dr. Garima Pulliam IG # 0.04 10e3/ul Critically high 0.00-0.03 [facility] Comment on above: Performed By: #### C BC ####[facility] Acuizjhxog8956 [place] [id number]. Garima Pulliam IG % 0.3 % Normal 0.0-0.5 [facility] Comment on above: Performed By: #### C BC ####[facility] Elqrguupmz0225 [place] [id number]. Garima Pulliam LYMPH # 1.7 103/ul Normal 1.2-3.8 [facility] Comment on above: Performed By: #### C BC ####[facility] Khvdvqpqfz2584 [place] [id number]. Garima Pulliam Lymphocytes/100 WBC (Bld) 11.5 % Critically low 20.5-60.0 [facility] Comment on above: Performed By: #### C BC ####[facility] Hlayvzrsaq9122 [place] [id number]. Garima Pulliam MANUAL DIFF REQ NO Normal [place] Comment on above: Performed By: #### C BC ####[facility] Hkbyqwipkl4880 [place] [id number]. Garima Pulliam MCH (RBC) [Entitic mass] 31.0 pg Normal 25.9-34.0 [facility] Comment on above: Performed By: #### C BC ####[facility] Xlkpzrfsdw9658 [place] [id number]. Garima Pulliam MCHC (RBC) [Mass/Vol] 33.8 g/dL Normal 29.9-35.2 [facility] Comment on above: Performed By: #### C BC ####[facility] Flyrcigdhr2260 [place] [phone]. Garima Pulliam MCV (RBC) [Entitic vol] 91.7 fL Normal 80.0-94.0 [facility] Comment on above: Performed By: #### C BC ####[facility] Jdivkhjkrr2305 [place] [phone]. Garima Heraclio MONO # 0.8 103/ul Normal 0.3-0.8 [facility] Comment on above: Performed By: #### C BC ####[facility] Rtztvnwqej3542 [place] [phone]. Garima Pulliam Monocytes/100 WBC (Bld) 5.2 % Normal 1.7-12.0 [facility] Comment on above: Performed By: #### C BC ####[facility] Qotpmlbupt4105 [place] [phone]. Garima Pulliam NEUT # 11.7 103/ul Critically high 1.4-6.5 [facility] Comment on above: Performed By: #### C BC ####[facility] Eudlgtzvuy0524 [place] [phone]. Garima Pulliam Neutrophils/100 WBC (Bld) 81.5 % Critically high 43.0-75.0 [facility] Comment on above: Performed By: #### C BC ####[facility] Dwgxkoardy2295 [place] [address]Dr. Garima Pulliam Platelet mean volume (Bld) [Entitic vol] 8.6 fL Critically low 9.5-13.5 [facility] Comment on above: Performed By: #### C BC ####[facility] Aaxnvgutix1023 [place] [id number]. Garima Pulliam PLT 191 103/ul Normal 150-450 [facility] Comment on above: Performed By: #### C BC ####[facility] Mdvmwun[address] [place], [place] [address]Dr. Garima Pulliam RBC 5.06 106/ul Normal 4.70-6.10 [facility] Comment on above: Performed By: #### C BC ####[facility] Es[address]ugebgmw[address] [place], [place] [address]Dr. Garima Pulliam WBC 14.4 103/ul Critically high 4.0-11.0 [facility] Comment on above: Performed By: #### C BC ####[facility] Niutiowzsa[address] [place], [place] [address]Dr. Garima Pulliam [facility]on 08-24 SARS-CoV-2 (COVID-19) RNA MARIE+probe Ql (Unsp spec) Not detected Normal NOT DETECTED [facility] Comment on above: Result Comment: When [...] for this test is supported by the [place] of Health and Human Service's declaration that [...] used). Performed By: #### C VDTBH ####[facility] [address]ek[address]zpi[address] [place], [place] [address]Dr. Garima Pulliam LACTATE/LACTIC ACIDon 2021 Lactate [Moles/Vol] 1.0 mmol/L Normal 0.4-1.9 [facility] Comment on above: Performed By: #### L ACT ####[facility] [address]luw[address]io[address] [place], [place] [address]Dr. Garima Pulliam PROF CHEM 8 (BAS METB)on Anion gap [Moles/Vol] 11.6 mmol/L Normal [facility] Comment on above: Performed By: #### B NANCY HERNANDEZ ####[facility] Vxwwnzlsmi5339 [place] [address]Dr. Garima Pulliam Calcium [Mass/Vol] 9.2 mg/dL Normal 8.5-10.1 [facility] Comment on above: Performed By: #### B NANCY HERNANDEZ ####[facility] Lbedambtcb0426 [place] [address]Dr. Garima Pulliam Chloride [Moles/Vol] 105 mmol/L Normal 98-107 [facility] Comment on above: Performed By: #### B MP, CMADM ####[facility] Iavuesmgdw0263 [place] [id number]. Garima Pulliam CO2 [Moles/Vol] 25.9 mmol/L Normal 21.0-32.0 [facility] Comment on above: Performed By: #### B DAVID, CMADM ####[facility] Fylslbmcfa1866 [place] [address]Dr. Garima Pulliam Creatinine [Mass/Vol] 0.72 mg/dL Normal 0.70-1.30 [facility] Comment on above: Performed By: #### B DAVID, CMADM ####[facility] Bxnfrvwndc7563 [place] [id number]. Garima Pulliam EGFR-AF PALAUAN >60 Normal >=60 [facility] Comment on above: Performed By: #### B DAVID, CMADM ####[facility] Myyxjahkyr9343 [place] [address]Dr. Chapisrenu Pulliam EGFR-NON AF PALAUAN >60 Normal >=60 [facility] Comment on above: Performed By: #### B DAVID, CMAANA ROSA ####[facility] Ffcpxlepwa4303 [place] [address]Dr. Garima Pulliam Glucose [Mass/Vol] 111 mg/dL Critically high 74-106 [facility] Comment on above: Performed By: #### B DAVID, CMADM ####[facility] Qquacfsxpf3905 [place] [address]Dr. Chapisrenu Pulliam Potassium [Moles/Vol] 3.5 mmol/L Normal 3.5-5.1 [facility] Comment on above: Performed By: #### B DAVID, CMADM ####[facility] Nbjebrrwal7691 [place] [address]Dr. Chapisrenu Pulliam Sodium [Moles/Vol] 139 mmol/L Normal 136-145 [facility] Comment on above: Performed By: #### B DAVID, CMADM ####[facility] Jltsasjhlc3664 [place] [address]Dr. Garima Pulliam Urea nitrogen [Mass/Vol] 7.0 mg/dL Normal 7.0-18.0 [facility] Comment on above: Performed By: #### B DAVID, CMADM ####[facility] Xlvvsklxiu7116 [place], [place] [address]Mi. Garima Pulliam Urea nitrogen/Creatinine [Mass ratio] 9.7 mg/mg Normal [facility] Comment on above: Performed By: #### B MP, CMADM ####[facility] Pqicxkaecy3042 [place], [place] [address]Zk. Garima Pulliam XR CHEST 1 Von 09-12-2022 XR CHEST 1 V Normal [facility] Encounters Encounter Date Encounter Type Care [...] Facility:H1 Payers Date Payer Category Payer Unknown [id number] 1960 Medicaid [id number] 1960 Unknown [id number] 1959 Unknown [id number] 1954 Unknown [id number] 2.16.84 0.1.046933.3.579.2.593 1954 Unknown [id number] 2.16.84 0.1.585592.3.579.2.593 1954 Unknown [id number] 2.16.84 0.1.973897.3.579.2.593 1954 Unknown [id number] 2.16.84 0.1.904293.3.579.2.593 1954 Unknown [id number] 2.16.84 0.1.402946.3.579.2.593 1954 Unknown [id number] 2.16.84 0.1.852812.3.579.2.593 1954 Unknown [id number] 2.16.84 0.1.549813.3.579.2.593 1954 Unknown [id number] 2.16.84 0.1.561009.3.579.2.593 1954 Unknown [id number] 2.16.84 0.1.173404.3.579.2.593 1954 Unknown [id number] 2.16.84 0.1.177589.3.579.2.593 1954 Unknown [id number] 2.16.84 0.1.010146.3.579.2.593 1954 Unknown [id number] 2.16.84 0.1.294162.3.579.2.593 1954 Unknown [id number] 2.16.84 0.1.696755.3.579.2.593 1954 Unknown [id number] 2.16.84 0.1.838496.3.579.2.593 1954 Unknown [id number] 2.16.84 0.1.538821.3.579.2.593 1954 Unknown [id number] 2.16.84 0.1.701294.3.579.2.593 1954 Unknown [id number] 2.16.84 0.1.012109.3.579.2.593 1954 Unknown [id number] 2.16.84 0.1.929699.3.579.2.593 1954 Unknown [id number] 2.16.84 0.1.132751.3.579.2.593 1954 Unknown [id number] 2.16.84 0.1.651233.3.579.2.593 Summary Purpose Family History No Family History Records Found Advance Directives No Advanced Directives Records Found Additional Source Comments (unrecognized sect ion and content) No Status Records Found INFORMATION SOURCE (unrecogn ized section and content) DATE CREATED AUTHOR 04/08/2023 [facility] FOR RECORDS PERTAINING TO PATIENTS [...] BE BASED ON THE PRIMARY CLINICAL RECORDS. [facility] [employer] [facility]. provides no warranty or guarantee of the accuracy or completeness of information in this document.
[2025-02-01 20:02] VITALS: BP 188/102; PULSE 97; TEMP 36.7; O2SAT 96; BMI 25.1
[2025-02-01 20:17] VITALS: O2SAT 95
--- NOTE | 2025-02-01 20:19 | ED_ITS ---
HPI HPI - General Adult General Chief complaint: Recheck/Abnormal Lab/Rx Stated complaint: SOB Time Seen by Provider: 02/01/25 20:16 Source: patient Mode of arrival: Wheelchair History of Present Illness HPI narrative: The patient is a 69-year-old male presenting to the emergency department in need of an asthma inhaler. The gentleman has a known history of COPD and smokes. He is not in any respiratory distress at this time. He is coming in because he cannot find his inhaler and he is afraid that he is going to decompensate. Patient has not had any fever or chills. He has a nonproductive cough that is not any worse than normal. He is getting around with his cane as per normal. Patient does not wear oxygen. Patient states that his symptoms are at his baseline. He last [place] yesterday and he cannot find where it is at. During triage, the nurse was assessing whether or not the patient was taking his medications based on his blood pressure. The patient is not taking his medications as directed. So she rewrote them down and the times he is supposed to be taking them to try to urged the patient to be compliant with his medications. In reference to having an elevated blood pressure, he does not have any blurry vision, double vision, loss of vision. There is no headache. There is no trouble thinking or concentrating. There is no lateralizing weakness or numbness. No trouble with coordination. No chest pain or shortness of breath. No nausea or vomiting. Patient does not feel flushed. Related Data Home Medications ?Medication ?Instructions ?Recorded ?Confirmed albuterol sulfate 90 mcg/actuation 2 inh inhalation Q6H PRN shortness 03/13/24 02/01/25 aerosol inhaler of breath or wheezing Previous Rx's ?Medication ?Instructions ?Recorded metformin 500 mg tablet 500 mg PO BID #30 tabs 11/11/24 tamsulosin 0.4 mg capsule (Flomax) 0.4 mg PO DAILY 7 days #7 caps 11/11/24 ipratropium 0.5 mg-albuterol 3 mg 3 ml inhalation Q4H PRN shortness 12/10/24 (2.5 mg base)/3 mL nebulization of breath #90 mL soln albuterol sulfate 2.5 mg/3 mL 2.5 mg (3 mL) inhalation Q6H PRN 01/24/25 (0.083 %) solution for nebulization shortness of breath or wheezing #90 mL losartan 100 mg tablet 100 mg PO DAILY #30 tabs 01/27/25 Allergies Allergy/AdvReac Type Severity Reaction Status Date / Time No Known Drug Allergies Allergy Verified 01/29/25 16:46 Opioid HPI Opioid Management Most Recent Opioid Data: Last Pain Scale 3 01/27/25 19:02 01/27/25 Last ED Pain Assessment 01/27/25 19:02 Last ORT Total Score 0 01/29/24 06:36 01/29/24 Last ORT Risk Category Low Risk 01/29/24 06:36 01/29/24 Review of Systems ROS Status of ROS 10 or more systems reviewed and unremark able except as noted in history and below [facility] Medical History Hypokalemia ?E87.6 - Hypokalemia (ICD-10) New onset type 2 diabetes mellitus ?E11.9 - Type 2 diabetes mellitus without complications (ICD-10) Lower extremity edema ?R60.0 - Localized edema (ICD-10) Edema ?R60.9 - Edema, unspecified (ICD-10) Acute hyperglycemia ?R73.9 - Hyperglycemia, unspecified (ICD-10) Tobacco abuse ?Z72.0 - Tobacco use (ICD-10) HTN (hypertension) ?I10 - Essential (primary) hypertension (ICD-10) Community acquired pneumonia ?J18.9 - Pneumonia, unspecified organism (ICD-10) Chronic obstructive pulmonary disease ?J44.9 - Chronic obstructive pulmonary disease, unspecified (ICD-10) Acute exacerbation of chronic obstructive pulmonary disease (COPD) ?J44.1 - Chronic obstructive pulmonary disease with (acute) exacerbation (ICD-10) RLL pneumonia ?J18.9 - Pneumonia, unspecified organism (ICD-10) COPD (chronic obstructive pulmonary disease) ?J44.9 - Chronic obstructive pulmonary disease, unspecified (ICD-10) Surgical History Hx of tonsillectomy ?Z90.89 - Acquired absence of other organs (ICD-10) Family History Mother Family history of cancer Family history of hypertension Father Family history of cancer Social History Within the past year, how often did you have a drink containing alcohol: 4 or more times a week Within the past year, how many standard drinks containing alcohol did you have on a typical day: 3 or 4 Within the past year, how often did you have six or more drinks on one occasion: less than monthly Total score: 3 Score interpretation: A score of 4 or more indicates drinking is likely to affect patient's safety. Smoking status: Current every day smoker Non-prescribed substance use: cannabis (any form) Previous occupational history: retired Highest level of school completed/degree received: high school graduate Are you now , , , , never or living with a partner: In a typical week, how many times do you talk on the telephone with family, friends, or neighbors: twice per week How often do you get together with friends or relatives: once per week How often do you attend adventism or mandaeism services: never Do you belong to any clubs or organizations such as adventism groups unions, fraternal or athletic groups, or school groups: no Total score: 1 Score interpretation: A score of less than or equal to 1 indicates the most socially isolated. Little interest or pleasure in doing things: not at all Feeling down, depressed, or hopeless: not at all Feel stressed/tense/nervous/anxious/difficulty sleeping: not at all Do you think of yourself as: straight/heterosexual Gender Identity: male Exam Narrative Exam Narrative: Prior to examining the patient, I have washed with hospital approved and provided Antiseptic Hand Tire Trimmer Hand and have also applied gloves.? Prior to touching the patient, I asked for consent to examine the patient.? General: Alert and oriented, well nourished, mild distress. Eye: PERRL, EOMI, normal conjunctiva. HENT: Normocephalic, normal hearing, moist oral mucosa, no scleral icterus Neck: Supple, non-tender, no carotid bruits, no JVD, no lymphadenopathy. Lungs: Clear to auscultation and percussion, non-labored respiration. Coarse breath sounds Heart: Normal rate, regular rhythm, no murmur, gallop or edema. Abdomen: Soft, non-tender, non-distended, normal bowel sounds, no masses. Musculoskeletal: Normal range of motion and strength, no tenderness or swelling. Skin: Skin is warm, dry and pink, no rashes or lesions. Neurologic: Awake, alert, and oriented X3, CN II-XII intact. Psychiatric: Cooperative, appropriate mood and affect.? Following the conclusion of the examination, I have washed my hands thoroughly after removing examination gloves. Constitutional Vital Signs, click to edit/add: Last Vital Signs Temp 98.1 F 02/01/25 20:02 Pulse 97 H 02/01/25 20:02 Resp 18 02/01/25 20:02 BP 188/102 H 02/01/25 20:02 Pulse Ox 95 02/01/25 20:17 O2 Del Method Room Air 02/01/25 20:17 Course Course Hospital Course: Patient is a 69-year-old male who presents to the emergency department for medication refill. He is not in an acute extremis for COPD. He is just concerned because he does not have his inhaler. Patient was prescribed his inhaler and he was discharged without incident. Vital Signs Vital signs: Vital Signs Temperature 98.1 F 02/01/25 20:02 Pulse Rate 97 H 02/01/25 20:02 Respiratory Rate 18 02/01/25 20:02 Blood Pressure 188/102 H 02/01/25 20:02 Pulse Oximetry 96 02/01/25 20:02 Oxygen Delivery Method Room Air 02/01/25 20:02 Temperature 98.1 F 02/01/25 20:02 Pulse Rate 97 H 02/01/25 20:02 Respiratory Rate 18 02/01/25 20:02 Blood Pressure 188/102 H 02/01/25 20:02 Pulse Oximetry 95 02/01/25 20:17 Oxygen Delivery Method Room Air 02/01/25 20:17 Medical Decision Making MDM Narrative Medical decision making narrative: Patient does not have any presenting medical problems other than needing a medication refill. He does not need any workup. He had a medical screening exam. Differential Diagnosis Differential Diagnosis: Medication refill Medical Records Medical records reviewed: Yes I reviewed the patient's medical records Discharge Plan Discharge Chief Complaint: Recheck/Abnormal Lab/Rx Clinical Impression: COPD (chronic obstructive pulmonary disease), Medication refill Patient Disposition: Home, Self-Care Time of Disposition Decision: 20:22 Condition: Good Mode of Transportation: Private Vehicle Prescriptions / Home Meds: No Action albuterol sulfate 90 mcg/actuation HFA aerosol inhaler 2 inh inhalation Q6H PRN (Reason: shortness of breath or wheezing) albuterol sulfate 2.5 mg /3 mL (0.083 %) solution for nebulization 2.5 mg inhalation Q6H PRN (Reason: shortness of breath or wheezing) Qty: 90 0RF tamsulosin [Flomax] 0.4 mg capsule 0.4 mg PO DAILY 7 Days Qty: 7 0RF metformin 500 mg tablet 500 mg PO BID Qty: 30 0RF ipratropium-albuterol 0.5 mg-3 mg(2.5 mg base)/3 mL solution for nebulization 3 ml inhalation Q4H PRN (Reason: shortness of breath) Qty: 90 0RF Rx Instructions: until breathing returns to target peak flow/parameters losartan 100 mg tablet 100 mg PO DAILY Qty: 30 0RF Print Language: Yemeni Instructions: COPD (Chronic Obstructive Pulmonary Disease) (ED), Medicine Refill (ED) Referrals: SERG DUENAS [Primary Care Provider] - 1 week Discharge Date/Time: 02/01/25 20:43
[2025-02-01] MEDS: ALBUTEROL SULFATE 200 PUFF/6.7 GM INHALER IH (20:40)
== END 2025-02-01 20:43 | disposition home or self-care (01) ==
PROVIDERS: Emergency Provider Emergency Medicine
DX: J44.9 Chronic obstructive pulmonary disease, unspecified (principal); F17.200 Nicotine dependence, unspecified, uncomplicated; Z76.0 Encounter for issue of repeat prescription
CPT/HCPCS: 99283

== ENCOUNTER 2025-02-03 19:41 | Emergency (ER) | payer MEDICARE, SELFPAY ==
[2025-02-03 19:49] VITALS: BP 190/105; PULSE 81; TEMP 37.2; O2SAT 97; BMI 25.1
--- OUTSIDE RECORDS SUMMARY | 2025-02-03 19:55 | XMS_ITS | CCD ---
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 Garima Pulliam Basophils/100 WBC (Bld) 0.3 % Normal 0.2-2.0 [facility] Comment on above: Performed By: #### C BC ####[facility] Hcnrforztr8596 [place] [address]DrAdalberto Pulliam EO # 0.3 103/ul Normal 0.0-0.7 [facility] Comment on above: Performed By: #### C BC ####[facility] Aw[address]gtugxw[address] [place], [place] [address]Dr. Garima Pulliam Eosinophils/100 WBC (Bld) 2.8 % Normal 0.9-7.0 [facility] Comment on above: Performed By: #### C BC ####[facility] Wiqcbvycnr2243 [place] [address]Dr. Garima Pulliam Erythrocyte distribution width (RBC) [Ratio] 13.4 % Normal 11.0-15.0 [facility] Comment on above: Performed By: #### C BC ####[facility] Iwqoozhzjy5[address] [place] [address]Dr. Garima Pulliam Hematocrit (Bld) [Volume fraction] 45.7 % Normal 42.0-54.0 [facility] Comment on above: Performed By: #### C BC ####[facility] Bjzgthrluh7220 [place] [address]Dr. Garima Pulliam Hemoglobin (Bld) [Mass/Vol] 15.2 g/dL Normal 14.0-18.0 [facility] Comment on above: Performed By: #### C BC ####[facility] Cthwiidkbj1929 [place] [address]Dr. Garima Pulliam IG # 0.02 10e3/ul Normal 0.00-0.03 [facility] Comment on above: Performed By: #### C BC ####[facility] Rdbqvckwdt8892 [place] [address]Dr. Garima Pulliam IG % 0.2 % Normal 0.0-0.5 [facility] Comment on above: Performed By: #### C BC ####[facility] Scgfpeeldg2057 [place] [address]Dr. Garima Pulliam LYMPH # 2.1 103/ul Normal 1.2-3.8 [facility] Comment on above: Performed By: #### C BC ####[facility] Yasnwrcvho3305 [place] [address]Dr. Garima Pulliam Lymphocytes/100 WBC (Bld) 23.7 % Normal 20.5-60.0 [facility] Comment on above: Performed By: #### C BC ####[facility] Nofcjhwzcn8005 [place] [address]Dr. Garima Heraclio MANUAL DIFF REQ NO Normal [facility] Comment on above: Performed By: #### C BC ####[facility] Qhxfacrlen0120 [place] [address]Dr. Garima Pulliam MCH (RBC) [Entitic mass] 30.4 pg Normal 25.9-34.0 [facility] Comment on above: Performed By: #### C BC ####[facility] Ewhgdccxod4406 [place] [address]Dr. Garima Heraclio MCHC (RBC) [Mass/Vol] 33.3 g/dL Normal 29.9-35.2 [facility] Comment on above: Performed By: #### C BC ####[facility] Faqupfkmrh[address] [place], [place] [address]Dr. Chapisrenu Pulliam MCV (RBC) [Entitic vol] 91.4 fL Normal 80.0-94.0 [facility] Comment on above: Performed By: #### C BC ####[facility] Odclzrzoza[address] [place], [place] [address]Dr. Garima Heraclio MONO # 0.7 103/ul Normal 0.3-0.8 [facility] Comment on above: Performed By: #### C BC ####[facility] Puxsxaitrf[address] [place], [place] [address]Dr. Chapisrenu Pulliam Monocytes/100 WBC (Bld) 8.3 % Normal 1.7-12.0 [facility] Comment on above: Performed By: #### C BC ####[facility] Cpzrjgskvb6784 [place] [address]Dr. Chapisrenu Heraclio NEUT # 5.8 103/ul Normal 1.4-6.5 [facility] Comment on above: Performed By: #### C BC ####[facility] Txvddagwcg[address] [place], [place] [address]Dr. Garima Pulliam Neutrophils/100 WBC (Bld) 64.7 % Normal 43.0-75.0 [facility] Comment on above: Performed By: #### C BC ####[facility] Grlasrvwhi2524 [place] [address]Dr. Garima Pulliam Platelet mean volume (Bld) [Entitic vol] 8.6 fL Critically low 9.5-13.5 [facility] Comment on above: Performed By: #### C BC ####[facility] Fvqkgntkci6650 [place] [address]Dr. Garima Pulliam PLT 230 103/ul Normal 150-450 [facility] Comment on above: Performed By: #### C BC ####[facility] Pskbqwbbsk6051 [place] [address]Dr. Chapisrenu Heraclio RBC 5.00 106/ul Normal 4.70-6.10 [facility] Comment on above: Performed By: #### C BC ####[facility] Faqkltjezu4619 [place] [address]Dr. Garima Heraclio WBC 9.0 103/ul Normal 4.0-11.0 [facility] Comment on above: Performed By: #### C BC ####[facility] Wptcijuclp9286 [place] [address]Dr. Garima Pulliam MAGNESIUMon 04-04-2023 Magnesium [Mass/Vol] 1.8 mg/dL Normal 1.8-2.4 [facility] Comment on above: Performed By: #### M G ####[facility] Jbipmolfyi7465 [place] [address]Dr. Chapisrenu Pulliam PROF 14(COMP METB)on 023 Albumin [Mass/Vol] 3.8 g/dL Normal 3.4-5.0 [facility] Comment on above: Performed By: #### C MP ####[facility] Pidznohyur8232 [place] [address]Dr. Garima Pulliam Albumin/Globulin [Mass ratio] 1.2 {ratio} Normal [facility] Comment on above: Performed By: #### C MP ####[facility] Mgdcjsilzs2224 [place] [address]Dr. Garima Heraclio ALP [Catalytic activity/Vol] 84 U/L Normal 46-116 [facility] Comment on above: Performed By: #### C MP ####[facility] Navqvnldio0909 [place] [phone]. Garima Pulliam ALT [Catalytic activity/Vol] 31 U/L Normal 16-63 [facility] Comment on above: Performed By: #### C MP ####[facility] Sbqeicmuyc4391 [place] [address]Dr. Garima Pulliam Anion gap [Moles/Vol] 12.2 mmol/L Normal [facility] Comment on above: Performed By: #### C MP ####[facility] Alkrghsjdj8099 [place] [address]Dr. Garima Pulliam AST [Catalytic activity/Vol] 23 U/L Normal 15-37 [facility] Comment on above: Performed By: #### C MP ####[facility] Vyhsbhipwg[address] [place], [place] [address]Dr. Garima Pulliam Bilirubin [Mass/Vol] 0.5 mg/dL Normal 0.2-1.0 [facility] Comment on above: Performed By: #### C MP ####[facility] Fbfpekrcxo92[address] [place], [place] [address]Dr. Garima Pulliam Calcium [Mass/Vol] 9.2 mg/dL Normal 8.5-10.1 [facility] Comment on above: Performed By: #### C MP ####[facility] Bifyuxopcg25[address] [place], [place] [address]Dr. Garima Pulliam Chloride [Moles/Vol] 103 mmol/L Normal 98-107 [facility] Comment on above: Performed By: #### C MP ####[facility] Birhbnzbhj6539 [place] [address]Dr. Garima Pulliam CO2 [Moles/Vol] 28.5 mmol/L Normal 21.0-32.0 [facility] Comment on above: Performed By: #### C MP ####[facility] Ognbcioaot[address] [place], [place] [address]Dr. Garima Pulliam Creatinine [Mass/Vol] 0.74 mg/dL Normal 0.70-1.30 [facility] Comment on above: Performed By: #### C MP ####[facility] Pxufcksvwb1890 [place] [phone]. Garima Pulliam EGFR-AF CITIZEN [place] >60 Normal >=60 [facility] Comment on above: Performed By: #### C MP ####[facility] Fukwwrpopg2326 [place] [address]Dr. Garima Heraclio EGFR-NON AF CITIZEN OF [place] >60 Normal >=60 [facility] Comment on above: Performed By: #### C MP ####[facility] Enfxciwchd6533 [place] [phone]. Garima Heraclio Globulin (S) [Mass/Vol] 3.1 g/dL Normal [facility] Comment on above: Performed By: #### C MP ####[facility] Awaktmhybn46[address] [place], [place] [address]Dr. Garima Heraclio Glucose [Mass/Vol] 93 mg/dL Normal 74-106 The [facility] [place] Comment on above: Performed By: #### C MP ####[facility] Bjpctlqfhb7[address] [place], [place] [address]Dr. Garima Heraclio Potassium [Moles/Vol] 3.7 mmol/L Normal 3.5-5.1 [facility] Comment on above: Performed By: #### C MP ####[facility] Pgnktihxqu[address] [place], [place] [address]Dr. Garima Heraclio Protein [Mass/Vol] 6.9 g/dL Normal 6.4-8.2 [facility] [place] Comment on above: Performed By: #### C MP ####[facility] Llgewnyqiv636[address] [place], [place] [address]Dr. Garima Heraclio Sodium [Moles/Vol] 140 mmol/L Normal 136-145 The [facility] [place] Comment on above: Performed By: #### C MP ####[facility] Qmfpghhtaz8[address] [place], [place] [address]Dr. Garima Pulliam Urea nitrogen [Mass/Vol] 8.0 mg/dL Normal 7.0-18.0 [facility] Comment on above: Performed By: #### C MP ####[facility] Tnticpemwh[address] [place], [place] [address]Dr. Garima Pulliam Urea nitrogen/Creatinine [Mass ratio] 10.8 mg/mg Normal [facility] Comment on above: Performed By: #### C DVAID ####[facility] Gcqpfwflet0221 [place] [address]Dr. Garima Pulliam AMMONIAon 03-30-2023 Ammonia (P) [Moles/Vol] 11 umol/L Normal 11-32 [facility] Comment on above: Performed By: #### A MM ####[facility] Obkjnhlzjx[address] [place], [place] [address]Dr. Garima Pluliam CARDIAC NASH ADMITon 023 CK [Catalytic activity/Vol] 232 U/L Normal 39-308 [facility] Comment on above: Performed By: #### C NANCY HERNANDEZ ####[facility] Dkvmgxhyji8489 [place] [address]Dr. Chapisrenu Pulliam CK.MB [Mass/Vol] 4.83 ng/mL Critically high <=3.60 [facility] Comment on above: Performed By: #### C NANCY HERNANDEZ ####[facility] Gtucktjbyw[address] [place], [place] [address]Dr. Garima Pulliam HSTROP 10.5 pg/mL Normal 4.0-76.1 [facility] Comment on above: Result Comment: CUT- OFF POINTS HAVE BEEN ESTABLISHED BASED ON THE FOURTH UNIVERSAL DEFINITIONS OF MYOCARDIALINFARCTION. THE UPPER REFERENCE LIMIT (URL) OF TROPONIN, DEFINED THE 99TH PERCENTILE OFcTnI DISTRIBUTION IN A REFERENCE POPULATION, HAS BEEN CONFIRMED THE DECISION THRESHOLDFOR [place] DIAGNOSIS. Performed By: #### C NANCY HERNANDEZ ####[facility] Lbzdajgpoc[address] [place], [place] [address]Dr. Garima Heraclio DORIS 79 ng/mL Normal 16-96 [facility] Comment on above: Performed By: #### C NANCY HERNANDEZ ####[facility] Nfdpmtpovy[address] [place], [place] [address]Dr. Garima Heraclio CBC AUTO DIFFon 03-30-2023 BASO # 0.0 103/ul Normal 0.0-0.1 [facility] Comment on above: Performed By: #### C BC ####[facility] Dfqnxzaquc8124 [place] [phone]. Garima Pulliam Basophils/100 WBC (Bld) 0.1 % Critically low 0.2-2.0 [facility] Comment on above: Performed By: #### C BC ####[facility] Jmpjdhtzgu3494 [place] [phone]. Garima Pulliam EO # 0.3 103/ul Normal 0.0-0.7 [facility] Comment on above: Performed By: #### C BC ####[facility] [address]aj[address] [place], [place] [address]Dr. Garima Pulliam Eosinophils/100 WBC (Bld) 3.3 % Normal 0.9-7.0 [facility] Comment on above: Performed By: #### C BC ####[facility] Vfphghjjyz[address] [place], [place] [address]Dr. Garima Pulliam Erythrocyte distribution width (RBC) [Ratio] 13.5 % Normal 11.0-15.0 [facility] Comment on above: Performed By: #### C BC ####[facility] [address]xfqzoznq[address] [place], [place] [address]Dr. Garima Pulliam Hematocrit (Bld) [Volume fraction] 42.9 % Normal 42.0-54.0 [facility] Comment on above: Performed By: #### C BC ####[facility] [address]qqueqj[address] [place], [place] [address]Dr. Garima Pulliam Hemoglobin (Bld) [Mass/Vol] 13.9 g/dL Critically low 14.0-18.0 [facility] Comment on above: Performed By: #### C BC ####[facility] Pylrcbdemn6300 [place] [phone]. Garima Pulliam IG # 0.01 10e3/ul Normal 0.00-0.03 [facility] Comment on above: Performed By: #### C BC ####[facility] Uvyupceicx[address] [place], [place] [address]Dr. Garima Pulliam IG % 0.1 % Normal 0.0-0.5 [facility] Comment on above: Performed By: #### C BC ####[facility] Qrbjpedoqb6850 [place] [phone]. Garima Pulliam LYMPH # 1.7 103/ul Normal 1.2-3.8 [facility] Comment on above: Performed By: #### C BC ####[facility] Eayqisuztf6841 [place], [place] [address]Pt. Garima Pulliam Lymphocytes/100 WBC (Bld) 22.8 % Normal 20.5-60.0 [facility] Comment on above: Performed By: #### C BC ####[facility] Djquslppib3637 [place] [phone]. Garima Heraclio MANUAL DIFF REQ NO Normal [facility] Comment on above: Performed By: #### C BC ####[facility] Pltqrdugsg7904 [place] [phone]. Garima Heraclio MCH (RBC) [Entitic mass] 30.5 pg Normal 25.9-34.0 [facility] Comment on above: Performed By: #### C BC ####[facility] Twoyiwyyrp1252 [place] [phone]. Garima Pulliam MCHC (RBC) [Mass/Vol] 32.4 g/dL Normal 29.9-35.2 [facility] Comment on above: Performed By: #### C BC ####[facility] Wulwbqsnmv2219 [place] [phone]. Garima Heraclio MCV (RBC) [Entitic vol] 94.1 fL Critically high 80.0-94.0 [facility] Comment on above: Performed By: #### C BC ####[facility] Fkdmnycajm1831 [place] [phone]. Garima Heraclio MONO # 0.7 103/ul Normal 0.3-0.8 [facility] Comment on above: Performed By: #### C BC ####[facility] Lquapullod1472 [place] [phone]. Garima Heraclio Monocytes/100 WBC (Bld) 8.6 % Normal 1.7-12.0 [facility] Comment on above: Performed By: #### C BC ####[facility] Bskjpzkigr6474 [place] [phone]. Garima Pulliam NEUT # 4.9 103/ul Normal 1.4-6.5 [facility] Comment on above: Performed By: #### C BC ####[facility] Ffoyylkrsx9145 [place] [phone]. Garima Pulliam Neutrophils/100 WBC (Bld) 65.1 % Normal 43.0-75.0 [facility] Comment on above: Performed By: #### C BC ####[facility] Bgyfpwkfwx1028 [place] [phone]. Garima Pulliam Platelet mean volume (Bld) [Entitic vol] 8.5 fL Critically low 9.5-13.5 [facility] Comment on above: Performed By: #### C BC ####[facility] Jsmngcrpff0669 [place] [phone]. Garima Pulliam PLT 219 103/ul Normal 150-450 [facility] Comment on above: Performed By: #### C BC ####[facility] Ciirisuqsa5236 [place] [phone]. Garima Pulliam RBC 4.56 106/ul Critically low 4.70-6.10 [facility] Comment on above: Performed By: #### C BC ####[facility] Cnqisxkcpa3224 [place] [phone]. Garima Pulliam WBC 7.6 103/ul Normal 4.0-11.0 [facility] Comment on above: Performed By: #### C BC ####[facility] Zrkegceabz6577 [place] [phone]. Garima Pulliam LACTATE/LACTIC ACIDon 2022 Lactate [Moles/Vol] 1.2 mmol/L Normal 0.4-2.0 [facility] [place] Comment on above: Performed By: #### L ACT ####[facility] Eqqdidtrzh4429 [place] [phone]. Garima Pulliam MAGNESIUMon 03-30-2023 Magnesium [Mass/Vol] 1.8 mg/dL Normal 1.8-2.4 [facility] Comment on above: Performed By: #### M G ####[facility] Ewlpbodyco8483 [place] [address]Dr. Garima Pulliam PROF 14(COMP METB)on 023 Albumin [Mass/Vol] 3.5 g/dL Normal 3.4-5.0 [facility] Comment on above: Performed By: #### C DAVID, CMAANA ROSA ####[facility] Pqqrdwggah0681 [place] [address]Dr. Garima Pulliam Albumin/Globulin [Mass ratio] 1.2 {ratio} Normal [facility] Comment on above: Performed By: #### C DAVID, CMAANA ROSA ####[facility] Gyixefsgoh8705 [place] [address]Dr. Garima Pulliam ALP [Catalytic activity/Vol] 85 U/L Normal 46-116 [facility] Comment on above: Performed By: #### C DAVID, CMAANA ROSA ####[facility] Suwpehizap[address] [place], [place] [address]Dr. Garima Pulliam ALT [Catalytic activity/Vol] 29 U/L Normal 16-63 [facility] Comment on above: Performed By: #### C DAVID, CMAANA ROSA ####[facility] Xgcvobuhod8374 [place] [address]Dr. Garima Pulliam Anion gap [Moles/Vol] 8.0 mmol/L Normal [facility] Comment on above: Performed By: #### C DAVID, CMAANA ROSA ####[facility] Mkmpqvglmb4187 [place] [address]Dr. aGrima Pulliam AST [Catalytic activity/Vol] 18 U/L Normal 15-37 [facility] Comment on above: Performed By: #### C DAVID, CMADM ####[facility] Xsyuhgfyys0672 [place] [address]Dr. Garima Pulliam Bilirubin [Mass/Vol] 0.4 mg/dL Normal 0.2-1.0 [facility] Comment on above: Performed By: #### C DAVID, CMADM ####[facility] Hncqnrckgj2906 [place] [address]Dr. Garima Pulliam Calcium [Mass/Vol] 8.8 mg/dL Normal 8.5-10.1 [facility] Comment on above: Performed By: #### C DAVID, NANCY ####[facility] Tibpuptyic7668 [place] [address]Dr. Chapisrenu Pulliam Chloride [Moles/Vol] 108 mmol/L Critically high 98-107 [facility] Comment on above: Performed By: #### C DAVID, NANCY ####[facility] Xmivfrikfh9233 [place] [address]Dr. Garima Pulliam CO2 [Moles/Vol] 29.6 mmol/L Normal 21.0-32.0 [facility] Comment on above: Performed By: #### C NANCY HERNANDEZ ####[facility] Cm[address]fxmeh[address] [place], [place] [address]Dr. Garima Pulliam Creatinine [Mass/Vol] 0.77 mg/dL Normal 0.70-1.30 [facility] Comment on above: Performed By: #### C NANCY HERNANDEZ ####[facility] Trhguxesox[address] [place], [place] [address]Dr. Garima Heraclio EGFR-AF CITIZEN [place] >60 Normal >=60 [facility] Comment on above: Performed By: #### C NANCY HERNANDEZ ####[facility] [address]yhkkinnqk[address] [place], [place] [address]Dr. Garima Heraclio EGFR-NON AF CITIZEN OF [place] >60 Normal >=60 [facility] Comment on above: Performed By: #### C NANCY HERNANDEZ ####[facility] Jnzqgjovto9067 [place] [address]Dr. Garima Pulliam Globulin (S) [Mass/Vol] 2.8 g/dL Normal [facility] Comment on above: Performed By: #### C NANCY HERNANDEZ ####[facility] Ytibfwppys4202 [place] [address]Dr. Garima Pulliam Glucose [Mass/Vol] 207 mg/dL Critically high 74-106 [facility] Comment on above: Performed By: #### C NANCY HERNANDEZ ####[facility] Kjpfqodlrc[address] [place], [place] [address]Dr. Garima Pulliam Potassium [Moles/Vol] 4.6 mmol/L Normal 3.5-5.1 [facility] Comment on above: Performed By: #### C DAVID, NANCY ####[facility] Mfeuhopkpq6870 [place] [address]Dr. Garima Pulliam Protein [Mass/Vol] 6.3 g/dL Critically low 6.4-8.2 [facility] Comment on above: Performed By: #### C DAVID, NANCY ####[facility] Rbxgadquws5006 [place] [address]Dr. Garima Pulliam Sodium [Moles/Vol] 141 mmol/L Normal 136-145 [facility] Comment on above: Performed By: #### C DAVID, NANCY ####[facility] Sagrudhokp2995 [place] [address]Dr. Garima Pulliam Urea nitrogen [Mass/Vol] 9.0 mg/dL Normal 7.0-18.0 [facility] Comment on above: Performed By: #### C DAVID, NANCY ####[facility] Ribcvbfdbx9275 [place] [address]Dr. Garima Pulliam Urea nitrogen/Creatinine [Mass ratio] 11.7 mg/mg Normal [facility] Comment on above: Performed By: #### C DAVID, NANCY ####[facility] Qwjqoxmmmu7676 [place] [address]Dr. Garima Pulliam XR CHEST 1 Von 03-30-2023 XR CHEST 1 V Normal [facility] BNPon 03-27-2023 Natriuretic peptide B (Bld) [Mass/Vol] 251.0 pg/mL Normal <=900.0 [facility] Comment on above: Performed By: #### C MP, BNP, LIPID ####[facility] Mwirdmcucl4359 [place] [address]Dr. Garima Pulliam GLYCOHEMOGLOBIN A1Con 2022 ADA RECOMMENDATION SEE BELOW Normal [facility] Comment on above: Result Comment: ADA RECOMMENDED LIMIT 4.0 - 6.0 ADA THERAPEUTIC TARGET < 7.0 ACTION SUGGESTED > 7.0 Performed By: #### A 1C ####[facility] Rpcgiwintd7763 [place] [address]Dr. Garima Pulliam Glucose [Mass/Vol] 180 mg/dL Normal [facility] Comment on above: Performed By: #### A 1C ####[facility] [address]igmpqkn[address] [place], [place] [address]Dr. Chapisrenu Pulliam HbA1c (Bld) [Mass fraction] 7.9 % Critically high 4.5-6.2 [facility] Comment on above: Performed By: #### A 1C ####[facility] [address]unuhjoxvc[address] [place], [place] [address]Dr. Garima Pulliam HEMOGRAM AND PLATELon 2022 Hematocrit (Bld) [Volume fraction] 45.7 % Normal 42.0-54.0 [facility] Comment on above: Performed By: #### H H ####[facility] Phlqxwqruv[address] [place], [place] [address]Dr. Garima Pulliam Hemoglobin (Bld) [Mass/Vol] 15.1 g/dL Normal 14.0-18.0 [facility] Comment on above: Performed By: #### H H ####[facility] Rvvjdmqyis[address] [place], [place] [address]Dr. Garima Pulliam MCH (RBC) [Entitic mass] 30.0 pg Normal 25.9-34.0 [facility] Comment on above: Performed By: #### H H ####[facility] Ubflbdeqoj99[address] [place], [place] [address]Dr. Garima Pulliam MCHC (RBC) [Mass/Vol] 33.0 g/dL Normal 29.9-35.2 [facility] Comment on above: Performed By: #### H H ####[facility] [address]vgvdkbt[address] [place], [place] [address]Dr. Garima Pulliam MCV (RBC) [Entitic vol] 90.7 fL Normal 80.0-94.0 [facility] Comment on above: Performed By: #### H H ####[facility] [address]wqzetspv[address] [place], [place] [address]Dr. Garima Pulliam PLT 222 103/ul Normal 150-450 [facility] Comment on above: Performed By: #### H H ####[facility] Xcpjyvsaju2000 [place] [id number]. Garima Pulliam RBC 5.04 106/ul Normal 4.70-6.10 [facility] Comment on above: Performed By: #### H H ####[facility] Aqtnvmylmq7802 [place] [phone]. Garima Pulliam WBC 8.7 103/ul Normal 4.0-11.0 [facility] Comment on above: Performed By: #### H H ####[facility] Scyvcqddcw3496 [place] [phone]. Garima Pulliam LIPID PROFILEon 03-27-2023 CHOL-HDL RATIO NORM SEE BELOW Normal [facility] [place] Comment on above: Result Comment: 3.3 - 4.4 LOW RISK 4.4 - 7.1 AVERAGE RISK 7.1 - 11.0 MODERATE RISK >11.0 HIGH RISK Performed By: #### C MP, BNP, LIPID ####[facility] [address]qdaguzglg[address] [place] [address]Dr. Garima Pullaim Cholesterol [Mass/Vol] 113 mg/dL Normal <=200 [facility] Comment on above: Performed By: #### C MP, BNP, LIPID ####[facility] Fqjyyxwulk[address] [place] [address]Dr. Garima Pulliam Cholesterol in HDL [Mass/Vol] 51 mg/dL Normal 40-60 [facility] Comment on above: Performed By: #### C MP, BNP, LIPID ####[facility] Acidhlqhyl[address] [place] [address]Dr. Garima Pulliam Cholesterol in LDL [Mass/Vol] 49.8 mg/dL Normal [facility] Comment on above: Performed By: #### C MP, BNP, LIPID ####[facility] Otaldvskak[address] [place] [address]Dr. Garima Pulliam Cholesterol.total/Cho lesterol in HDL [Mass ratio] 2.2 {ratio} Normal [facility] Comment on above: Performed By: #### C MP, BNP, LIPID ####[facility] Pyanwleznv[address] [place] [address]Dr. Garima Pulliam HDL NORMAL > or = 60 mg/dl - LOW CARDIOVASCULAR RISK <40 mg/dl - HIGH CARDIOVASCULAR RISK Normal [facility] Comment on above: Performed By: #### C MP, BNP, LIPID ####[facility] Ffavquzrib[address] [place] [address]Dr. Garima Pulliam LDL CALC NORMAL SEE BELOW Normal [facility] Comment on above: Result Comment: <100 mg/dl OPTIMAL 100 - 129 mg/dl NEAR OR ABOVE OPTIMAL 130 - 159 mg/dl BORDERLINE HIGH 160 - 189 mg/dl HIGH >190 mg/dl VERY HIGH Performed By: #### C MP, BNP, LIPID ####[facility] Fqwkbbjcdj[address] [place] [address]Dr. Garima Pulliam Triglyceride [Mass/Vol] 61 mg/dL Normal <=150 [facility] Comment on above: Performed By: #### C MP, BNP, LIPID ####[facility] Kxpxhnuhpa[address] [place] [address]Dr. Garima Pulliam VLDL CALC 12.2 mg/dL Normal [facility] Comment on above: Performed By: #### C MP, BNP, LIPID ####[facility] Lqncjdutkb[address] [place] [address]Dr. Garima Pulliam PROF 14(COMP METB)on 023 Albumin [Mass/Vol] 3.5 g/dL Normal 3.4-5.0 [facility] Comment on above: Performed By: #### C MP, BNP, LIPID ####[facility] Grodriiipw[address] [place] [address]Dr. Garima Pulliam Albumin/Globulin [Mass ratio] 1.2 {ratio} Normal [facility] Comment on above: Performed By: #### C MP, BNP, LIPID ####[facility] Vonzwqtvdt34[address] [place] [address]Dr. Garima Pulliam ALP [Catalytic activity/Vol] 82 U/L Normal 46-116 [facility] Comment on above: Performed By: #### C MP, BNP, LIPID ####[facility] Wycutuydmt[address] [place] [address]Dr. Garima Pulliam ALT [Catalytic activity/Vol] 33 U/L Normal 16-63 [facility] Comment on above: Performed By: #### C MP, BNP, LIPID ####[facility] Rzifqearso34[address] [place] [address]Dr. Garima Pulliam Anion gap [Moles/Vol] 9.9 mmol/L Normal [facility] Comment on above: Performed By: #### C MP, BNP, LIPID ####[facility] Ltnofkuctx2036 [place] [address]Dr. Garima Pulliam AST [Catalytic activity/Vol] 24 U/L Normal 15-37 [facility] Comment on above: Performed By: #### C MP, BNP, LIPID ####[facility] Bksejjfmao18[address] [place] [address]Dr. Garima Pulliam Bilirubin [Mass/Vol] 0.6 mg/dL Normal 0.2-1.0 [facility] Comment on above: Performed By: #### C MP, BNP, LIPID ####[facility] Ueozvhygdw97[address] [place] [address]Dr. Garima Pulliam Calcium [Mass/Vol] 9.2 mg/dL Normal 8.5-10.1 [facility] Comment on above: Performed By: #### C MP, BNP, LIPID ####[facility] Lexxuokres[address]13 [place] [address]Dr. Garima Pulliam Chloride [Moles/Vol] 106 mmol/L Normal 98-107 [facility] Comment on above: Performed By: #### C MP, BNP, LIPID ####[facility] Prmhtgdblu4626 [place] [address]Dr. Garima Pulliam CO2 [Moles/Vol] 32.3 mmol/L Critically high 21.0-32.0 [facility] Comment on above: Performed By: #### C MP, BNP, LIPID ####[facility] Dhiucvbjan[address] [place] [address]Dr. Garima Pulliam Creatinine [Mass/Vol] 0.70 mg/dL Normal 0.70-1.30 [facility] Comment on above: Performed By: #### C MP, BNP, LIPID ####[facility] Jeuykspinz40[address] [place] [id number]. aGrima Pulliam EGFR-AF CITIZEN [place] >60 Normal >=60 [facility] Comment on above: Performed By: #### C MP, BNP, LIPID ####[facility] [address]zhwgwcgkq68[address] [place] [id number]. Garima Pulliam EGFR-NON AF CITIZEN [place] >60 Normal >=60 [facility] Comment on above: Performed By: #### C MP, BNP, LIPID ####[facility] Shnmnbddqw81[address] [place] [address]Dr. Garima Pulliam Globulin (S) [Mass/Vol] 2.9 g/dL Normal [facility] Comment on above: Performed By: #### C MP, BNP, LIPID ####[facility] Pcbvjskfad60[address] [place] [address]Dr. Garima Pulliam Glucose [Mass/Vol] 111 mg/dL Critically high 74-106 [facility] Comment on above: Performed By: #### C MP, BNP, LIPID ####[facility] Cjbojdsmke7141 [place] [address]Dr. Garima Pulliam Potassium [Moles/Vol] 4.2 mmol/L Normal 3.5-5.1 [facility] Comment on above: Performed By: #### C MP, BNP, LIPID ####[facility] Zkzwweikfe7[address] [place] [address]Dr. Garima Pulliam Protein [Mass/Vol] 6.4 g/dL Normal 6.4-8.2 [facility] Comment on above: Performed By: #### C MP, BNP, LIPID ####[facility] Uiwezkwtie60[address] [place] [address]Dr. Garima Pulliam Sodium [Moles/Vol] 144 mmol/L Normal 136-145 [facility] Comment on above: Performed By: #### C MP, BNP, LIPID ####[facility] Famgotecjq4[address] [place] [address]Dr. Garima Pulliam Urea nitrogen [Mass/Vol] 7.0 mg/dL Normal 7.0-18.0 [facility] Comment on above: Performed By: #### C MP, BNP, LIPID ####[facility] Nuubklfcij[address] [place], [place] [address]Dr. Garima Pulliam Urea nitrogen/Creatinine [Mass ratio] 10.0 mg/mg Normal [facility] Comment on above: Performed By: #### C MP, BNP, LIPID ####[facility] Okjnciiuwr[address] [place], [place] [address]Dr. Garima Pulliam BNPon 03-22-2023 Natriuretic peptide B (Bld) [Mass/Vol] 103.0 pg/mL Normal <=900.0 [facility] Comment on above: Performed By: #### B BATTERY CONTAINER TESTER, BMP ####[facility] Fixplpoeoz[address] [place], [place] [address]Dr. Garima Pulliam CBC AUTO DIFFon 03-22-2023 BASO # 0.0 103/ul Normal 0.0-0.1 [facility] Comment on above: Performed By: #### C BC ####[facility] Lkcnpoiihw[address] [place], [place] [address]Dr. Garima Heraclio Basophils/100 WBC (Bld) 0.3 % Normal 0.2-2.0 [facility] Comment on above: Performed By: #### C BC ####[facility] [address]qstnretfm[address] [place], [place] [address]Dr. Garima Pulliam EO # 0.2 103/ul Normal 0.0-0.7 [facility] Comment on above: Performed By: #### C BC ####[facility] Vwqchatunw[address] [place], [place] [address]Dr. Garima Pulliam Eosinophils/100 WBC (Bld) 2.2 % Normal 0.9-7.0 [facility] Comment on above: Performed By: #### C BC ####[facility] Dpwzpbuysj8[address] [place], [place] [address]Dr. Garima Pulliam Erythrocyte distribution width (RBC) [Ratio] 13.2 % Normal 11.0-15.0 [facility] Comment on above: Performed By: #### C BC ####[facility] [address]qafytslv3[address] [place] [id number]. Garima Pulliam Hematocrit (Bld) [Volume fraction] 43.4 % Normal 42.0-54.0 [facility] Comment on above: Performed By: #### C BC ####[facility] Wzougasxyb9096 [place] [address]Dr. Garima Heraclio Hemoglobin (Bld) [Mass/Vol] 14.3 g/dL Normal 14.0-18.0 [facility] Comment on above: Performed By: #### C BC ####[facility] Jxyuiixkkq0906 [place] [address]Dr. Garima Pulliam IG # 0.02 10e3/ul Normal 0.00-0.03 [facility] Comment on above: Performed By: #### C BC ####[facility] Xzmasfbayv7849 [place] [address]Dr. Garima Pulliam IG % 0.3 % Normal 0.0-0.5 [facility] Comment on above: Performed By: #### C BC ####[facility] Thjgyqqlah3681 [place] [address]Dr. Chapisrenu Pulliam LYMPH # 2.0 103/ul Normal 1.2-3.8 [facility] Comment on above: Performed By: #### C BC ####[facility] Gavdeewowv[address] [place] [address]Dr. Chapisrenu Pulliam Lymphocytes/100 WBC (Bld) 24.8 % Normal 20.5-60.0 [facility] Comment on above: Performed By: #### C BC ####[facility] Wwmoaytxte5447 [place] [address]Dr. Chapisrenu Pulliam MANUAL DIFF REQ NO Normal [facility] Comment on above: Performed By: #### C BC ####[facility] Zhslcpwefy4478 [place] [address]Dr. Garima Heraclio MCH (RBC) [Entitic mass] 30.0 pg Normal 25.9-34.0 [facility] Comment on above: Performed By: #### C BC ####[facility] Novlpwpnrn[address] [place], [place] [address]Dr. Garima Pulliam MCHC (RBC) [Mass/Vol] 32.9 g/dL Normal 29.9-35.2 [facility] Comment on above: Performed By: #### C BC ####[facility] Gsigkwounb2137 [place] [phone]. Garima Pulliam MCV (RBC) [Entitic vol] 91.0 fL Normal 80.0-94.0 [facility] Comment on above: Performed By: #### C BC ####[facility] Hywfzknoxq9303 [place] [phone]. Garima Heraclio MONO # 0.8 103/ul Normal 0.3-0.8 [facility] Comment on above: Performed By: #### C BC ####[facility] Flwpijdrkn2688 [place] [address]Dr. Chapisrenu Pulliam Monocytes/100 WBC (Bld) 9.7 % Normal 1.7-12.0 [facility] Comment on above: Performed By: #### C BC ####[facility] Ntepxhwjvm7405 [place] [address]Dr. Garima Pulliam NEUT # 4.9 103/ul Normal 1.4-6.5 [facility] Comment on above: Performed By: #### C BC ####[facility] Wfdudtmyov2970 [place] [phone]. Garima Heraclio Neutrophils/100 WBC (Bld) 62.7 % Normal 43.0-75.0 [facility] Comment on above: Performed By: #### C BC ####[facility] Nieobshyxp6613 [place] [phone]. Garima Heraclio Platelet mean volume (Bld) [Entitic vol] 8.8 fL Critically low 9.5-13.5 [facility] Comment on above: Performed By: #### C BC ####[facility] Lxkltthquo8126 [place] [phone]. Garima Heraclio PLT 198 103/ul Normal 150-450 [facility] Comment on above: Performed By: #### C BC ####[facility] Dapubkxasr4932 [place] [phone]. Garima Heraclio RBC 4.77 106/ul Normal 4.70-6.10 [facility] Comment on above: Performed By: #### C BC ####[facility] Ixlmxnpfmh6568 [place] [phone]. Garima Heraclio WBC 7.9 103/ul Normal 4.0-11.0 [facility] Comment on above: Performed By: #### C BC ####[facility] Ghyxxgumem7092 [place] [phone]. Garima Heraclio D-DIMERon 03-22-2023 D-DIMER 0.85 mg/L FEU Critically high <=0.59 [facility] Comment on above: Performed By: #### D DIM ####[facility] Ofzvhgearq4112 [place] [address]Dr. Garima Pulliam D-DIMER COMMENTS SEE BELOW Normal [...] generalized hospitalization. Performed By: #### D DIM ####[facility] Wen[address] [place], [place] [address]Dr. Garima Pulliam PROF CHEM 8 (BAS METB)on Anion gap [Moles/Vol] 6.9 mmol/L Normal [facility] Comment on above: Performed By: #### B BATTERY CONTAINER TESTER, BMP ####[facility] Omdafvnjui2846 [place] [address]Dr. Garima Pulliam Calcium [Mass/Vol] 8.9 mg/dL Normal 8.5-10.1 [facility] Comment on above: Performed By: #### B BATTERY CONTAINER TESTER, BMP ####[facility] Bzwkuqfvls9859 [place] [address]Dr. Garima Pulliam Chloride [Moles/Vol] 101 mmol/L Normal 98-107 [facility] Comment on above: Performed By: #### B BATTERY CONTAINER TESTER, BMP ####[facility] Goqodpcjjd180[address] [place], [place] [address]Dr. Chapisrenu Heraclio CO2 [Moles/Vol] 30.7 mmol/L Normal 21.0-32.0 [facility] Comment on above: Performed By: #### B BATTERY CONTAINER TESTER, BMP ####[facility] Sszxlmdshx[address] [place], [place] [address]Dr. Garima Pulliam Creatinine [Mass/Vol] 0.82 mg/dL Normal 0.70-1.30 [facility] Comment on above: Performed By: #### B BATTERY CONTAINER TESTER, BMP ####[facility] Qwkqqozkwr425[address] [place], [place] [address]Dr. Garima Pulliam EGFR-AF CITIZEN [place] >60 Normal >=60 [facility] Comment on above: Performed By: #### B BATTERY CONTAINER TESTER, BMP ####[facility] Sdylikallt[address] [place], [place] [address]Dr. Chapisrenu Heraclio EGFR-NON AF CITIZEN OF [place] >60 Normal >=60 [facility] Comment on above: Performed By: #### B BATTERY CONTAINER TESTER, BMP ####[facility] Xvlmkgazra22[address] [place], [place] [address]Dr. Garima Pulliam Glucose [Mass/Vol] 339 mg/dL Critically high 74-106 [facility] Comment on above: Performed By: #### B BATTERY CONTAINER TESTER, BMP ####[facility] Uxsvampkpo[address] [place], [place] [address]Dr. Garima Pulliam Potassium [Moles/Vol] 3.6 mmol/L Normal 3.5-5.1 [facility] Comment on above: Performed By: #### B BATTERY CONTAINER TESTER, BMP ####[facility] Ztezmnwevx564[address] [place], [place] [address]Dr. Garima Pulliam Sodium [Moles/Vol] 135 mmol/L Critically low 136-145 [facility] Comment on above: Performed By: #### B BATTERY CONTAINER TESTER, BMP ####[facility] Uupbymcnkc[address] [place], [place] [address]Dr. Garima Pulliam Urea nitrogen [Mass/Vol] 11.0 mg/dL Normal 7.0-18.0 [facility] Comment on above: Performed By: #### B BATTERY CONTAINER TESTER, BMP ####[facility] Vtsrultodk[address] [place], [place] [address]Dr. Garima Pulliam Urea nitrogen/Creatinine [Mass ratio] 13.4 mg/mg Normal [facility] Comment on above: Performed By: #### B BATTERY CONTAINER TESTER, BMP ####[facility] Xstnhluwkp94[address] [place], [place] [address]Dr. Graima Pulliam US VERONICA DOP LEG BILon 023 US VERONICA DOP LEG BENOIT Normal [facility] BNPon 03-18-2023 Natriuretic peptide B (Bld) [Mass/Vol] 226.0 pg/mL Normal <=900.0 [facility] Comment on above: Performed By: #### B BATTERY CONTAINER TESTER, BMP ####[facility] Zyatblftvd[address] [place], [place] [address]Dr. Garima Pulliam CBC AUTO DIFFon 03-18-2023 BASO # 0.0 103/ul Normal 0.0-0.1 [facility] Comment on above: Performed By: #### C BC ####[facility] Ipekyfotki[address] [place], [place] [address]Dr. Garima Heraclio Basophils/100 WBC (Bld) 0.2 % Normal 0.2-2.0 [facility] Comment on above: Performed By: #### C BC ####[facility] Kpdhrinvzb[address] [place], [place] [address]Dr. Garima Pulliam EO # 0.3 103/ul Normal 0.0-0.7 [facility] Comment on above: Performed By: #### C BC ####[facility] Urkxvwvohe[address] [place], [place] [address]Dr. Garima Heraclio Eosinophils/100 WBC (Bld) 2.5 % Normal 0.9-7.0 [facility] Comment on above: Performed By: #### C BC ####[facility] Gvcfsjynhr[address] [place], [place] [address]Dr. Garima Heraclio Erythrocyte distribution width (RBC) [Ratio] 13.2 % Normal 11.0-15.0 [facility] Comment on above: Performed By: #### C BC ####[facility] Hcfhueuvtk9823 [place] [address]DrAdalberto Pulliam Hematocrit (Bld) [Volume fraction] 45.8 % Normal 42.0-54.0 [facility] Comment on above: Performed By: #### C BC ####[facility] Relushjpas3826 [place] [address]DrAdalberto Pulliam Hemoglobin (Bld) [Mass/Vol] 15.3 g/dL Normal 14.0-18.0 [facility] Comment on above: Performed By: #### C BC ####[facility] Wsshmcyarl[address] [place], [place] [address]DrAdalberto Pulliam IG # 0.02 10e3/ul Normal 0.00-0.03 [facility] Comment on above: Performed By: #### C BC ####[facility] Dpwepddiuf380[address] [place], [place] [address]DrAdalberto Pulliam IG % 0.2 % Normal 0.0-0.5 [facility] Comment on above: Performed By: #### C BC ####[facility] Fpqqmjrclx[address] [place], [place] [address]DrAdalberto Pulliam LYMPH # 1.8 103/ul Normal 1.2-3.8 [facility] Comment on above: Performed By: #### C BC ####[facility] Feazwnvyzb313[address] [place], [place] [address]DrAdalberto Pulliam Lymphocytes/100 WBC (Bld) 18.3 % Critically low 20.5-60.0 [facility] Comment on above: Performed By: #### C BC ####[facility] Vvnfqwlqxu[address] [place], [place] [address]DrAdalberto Pulliam MANUAL DIFF REQ NO Normal [facility] Comment on above: Performed By: #### C BC ####[facility] Awgfknhibv1597 [place] [address]DrAdalberto Pulliam MCH (RBC) [Entitic mass] 30.5 pg Normal 25.9-34.0 [facility] Comment on above: Performed By: #### C BC ####[facility] Lqijihygba5732 [place] [address]DrAdalberto Pulliam MCHC (RBC) [Mass/Vol] 33.4 g/dL Normal 29.9-35.2 [facility] Comment on above: Performed By: #### C BC ####[facility] Duosvxogkn6900 [place] [address]DrAdalberto Pulliam MCV (RBC) [Entitic vol] 91.2 fL Normal 80.0-94.0 [facility] Comment on above: Performed By: #### C BC ####[facility] Hcyefxfkyb[address] [place], [place] [address]DrAdalberto Pulliam MONO # 0.8 103/ul Normal 0.3-0.8 [facility] Comment on above: Performed By: #### C BC ####[facility] Viekvljqlo[address] [place], [place] [address]DrAdalberto Pulliam Monocytes/100 WBC (Bld) 7.6 % Normal 1.7-12.0 [facility] Comment on above: Performed By: #### C BC ####[facility] Litfutaiyn[address] [place], [place] [address]DrAdalberto Pulliam NEUT # 7.0 103/ul Critically high 1.4-6.5 [facility] Comment on above: Performed By: #### C BC ####[facility] Xxcangcyps[address] [place], [place] [address]DrAdalberto Pulliam Neutrophils/100 WBC (Bld) 71.2 % Normal 43.0-75.0 [facility] Comment on above: Performed By: #### C BC ####[facility] Wuokukfzhs[address] [place], [place] [address]DrAdalberto Pulliam Platelet mean volume (Bld) [Entitic vol] 8.9 fL Critically low 9.5-13.5 [facility] Comment on above: Performed By: #### C BC ####[facility] [address]qfqsvctr[address] [place], [place] [address]DrAdalberto Pulliam PLT 217 103/ul Normal 150-450 [facility] Comment on above: Performed By: #### C BC ####[facility] Rkouppdptr7283 [place] [address]Dr. Garima Heraclio RBC 5.02 106/ul Normal 4.70-6.10 [facility] Comment on above: Performed By: #### C BC ####[facility] [address]qllgrrnla[address] [place], [place] [address]Dr. Garima Pulliam WBC 9.8 103/ul Normal 4.0-11.0 [facility] Comment on above: Performed By: #### C BC ####[facility] Nnslpsnyqy[address] [place], [place] [address]Dr. Garima Heraclio CRPon 03-18-2023 CRP 0.1 mg/dL Normal <=1.0 [facility] Comment on above: Performed By: #### C RP ####[facility] Xkshpgxbog[address] [place], [place] [address]Dr. Garima Heraclio PROF CHEM 8 (BAS METB)on Anion gap [Moles/Vol] 10.4 mmol/L Normal [facility] Comment on above: Performed By: #### B BATTERY CONTAINER TESTER, BMP ####[facility] [address]fqqubklsw[address] [place], [place] [address]Dr. Garima Heraclio Calcium [Mass/Vol] 8.8 mg/dL Normal 8.5-10.1 [facility] Comment on above: Performed By: #### B BATTERY CONTAINER TESTER, BMP ####[facility] Enfbltlcvd[address] [place], [place] [address]Dr. Garima Heraclio Chloride [Moles/Vol] 97 mmol/L Critically low 98-107 [facility] Comment on above: Performed By: #### B BATTERY CONTAINER TESTER, BMP ####[facility] Kjbmqtdzfu[address] [place], [place] [address]Dr. Garima Pulliam CO2 [Moles/Vol] 31.2 mmol/L Normal 21.0-32.0 [facility] Comment on above: Performed By: #### B BATTERY CONTAINER TESTER, BMP ####[facility] [address]jprdtonf[address] [place], [place] [address]Dr. Garima Pulliam Creatinine [Mass/Vol] 0.91 mg/dL Normal 0.70-1.30 [facility] Comment on above: Performed By: #### B BATTERY CONTAINER TESTER, BMP ####[facility] Sraekmsgll1826 [place] [address]Dr. Garima Pulliam EGFR-AF CITIZ[place] >60 Normal >=60 [facility] Comment on above: Performed By: #### B BATTERY CONTAINER TESTER, BMP ####[facility] Blrptfbmlj0504 [place] [id number]. Garima Pulliam EGFR-NON AF CITIZEN [place] >60 Normal >=60 [facility] Comment on above: Performed By: #### B BATTERY CONTAINER TESTER, BMP ####[facility] Aecvbhjacq4316 [place] [address]Dr. Garima Pulliam Glucose [Mass/Vol] 315 mg/dL Critically high 74-106 T [facility] Comment on above: Performed By: #### B BATTERY CONTAINER TESTER, BMP ####[facility] Iembjrnndp0849 [place] [address]Dr. Garima Pulliam Potassium [Moles/Vol] 3.6 mmol/L Normal 3.5-5.1 [facility] Comment on above: Performed By: #### B BATTERY CONTAINER TESTER, BMP ####[facility] Kxuafrtioj0491 [place] [address]Dr. Garima Pulliam Sodium [Moles/Vol] 135 mmol/L Critically low 136-145 Th [facility] Comment on above: Performed By: #### B BATTERY CONTAINER TESTER, BMP ####[facility] Xcmbkcwdia1330 [place] [address]Dr. Garima Pulliam Urea nitrogen [Mass/Vol] 7.0 mg/dL Normal 7.0-18.0 [facility] Comment on above: Performed By: #### B BATTERY CONTAINER TESTER, BMP ####[facility] Rarqylhvvg78[address] [place] [address]Dr. Garima Pulliam Urea nitrogen/Creatinine [Mass ratio] 7.7 mg/mg Normal [facility] Comment on above: Performed By: #### B BATTERY CONTAINER TESTER, BMP ####[facility] Ghkbojsstw6343 [place] [address]Dr. Garima Pulliam SED RATE WESTERGRENon 2022 SED RATE 8 mm/hr Normal <=20 [facility] Comment on above: Performed By: #### S EDR ####[facility] Qpokavgteo[address] [place], [place] [address]Dr. Garima Pulliam BNPon 03-16-2023 Natriuretic peptide B (Bld) [Mass/Vol] 241.0 pg/mL Normal <=900.0 [facility] Comment on above: Performed By: #### B BATTERY CONTAINER TESTER, BMP, HSTROPN ####[facility] Renfbnufud[address] [place], [place] [address]Dr. Garima Heraclio CBC AUTO DIFFon 03-16-2023 BASO # 0.0 103/ul Normal 0.0-0.1 [facility] Comment on above: Performed By: #### C BC ####[facility] [address]ls[address] [place], [place] [address]Dr. Chapisrenu Pulliam Basophils/100 WBC (Bld) 0.2 % Normal 0.2-2.0 [facility] Comment on above: Performed By: #### C BC ####[facility] Oafpsocj[address] [place], [place] [address]Dr. Garima Pulliam EO # 0.2 103/ul Normal 0.0-0.7 [facility] Comment on above: Performed By: #### C BC ####[facility] Mfktovlrmg[address] [place], [place] [address]Dr. Chapisrenu Pulliam Eosinophils/100 WBC (Bld) 2.7 % Normal 0.9-7.0 [facility] Comment on above: Performed By: #### C BC ####[facility] Vttujheflx[address] [place], [place] [address]Dr. Garima Pulliam Erythrocyte distribution width (RBC) [Ratio] 13.1 % Normal 11.0-15.0 [facility] Comment on above: Performed By: #### C BC ####[facility] Xfxxelqbnx[address] [place], [place] [address]Dr. Garima Pulliam Hematocrit (Bld) [Volume fraction] 41.8 % Critically low 42.0-54.0 [facility] Comment on above: Performed By: #### C BC ####[facility] Xnywrxwlct038[address] [place] [address]Dr. Garima Pulliam Hemoglobin (Bld) [Mass/Vol] 14.0 g/dL Normal 14.0-18.0 [facility] Comment on above: Performed By: #### C BC ####[facility] Jjmsdeocsj3967 [place] [address]Dr. Garima Pulliam IG # 0.03 10e3/ul Normal 0.00-0.03 [facility] Comment on above: Performed By: #### C BC ####[facility] Gacwkxeslq3419 [place] [address]Dr. Garima Pulliam IG % 0.3 % Normal 0.0-0.5 [facility] Comment on above: Performed By: #### C BC ####[facility] Cfhebryole[address] [place], [place] [address]Dr. Chapisrenu Pulliam LYMPH # 2.1 103/ul Normal 1.2-3.8 [facility] Comment on above: Performed By: #### C BC ####[facility] Njhrredttc34[address] [place], [place] [address]Dr. Chapisrenu Pulliam Lymphocytes/100 WBC (Bld) 24.2 % Normal 20.5-60.0 [facility] Comment on above: Performed By: #### C BC ####[facility] Jirlubczkt6609 [place] [address]Dr. Garima Pulliam MANUAL DIFF REQ NO Normal [facility] Comment on above: Performed By: #### C BC ####[facility] Wxjjvlnvzt1600 [place] [address]Dr. Garima Pulliam MCH (RBC) [Entitic mass] 30.2 pg Normal 25.9-34.0 [facility] Comment on above: Performed By: #### C BC ####[facility] Pvgiyyvvvc0643 [place] [address]Dr. Garima Pulliam MCHC (RBC) [Mass/Vol] 33.5 g/dL Normal 29.9-35.2 [facility] Comment on above: Performed By: #### C BC ####[facility] Fzchuyhbwu46[address] [place] [phone]. Garima Pulliam MCV (RBC) [Entitic vol] 90.1 fL Normal 80.0-94.0 [facility] Comment on above: Performed By: #### C BC ####[facility] Itusickkbt5843 [place] [phone]. Garima Pulliam MONO # 0.6 103/ul Normal 0.3-0.8 [facility] Comment on above: Performed By: #### C BC ####[facility] Cjvciauvqh9915 [place] [address]Dr. Garima Heraclio Monocytes/100 WBC (Bld) 7.4 % Normal 1.7-12.0 [facility] Comment on above: Performed By: #### C BC ####[facility] Ddfrifdkau[address] [place], [place] [address]Dr. Garima Pulliam NEUT # 5.6 103/ul Normal 1.4-6.5 [facility] Comment on above: Performed By: #### C BC ####[facility] Oejpxmgblp[address] [place], [place] [address]Dr. Garima Heraclio Neutrophils/100 WBC (Bld) 65.2 % Normal 43.0-75.0 [facility] Comment on above: Performed By: #### C BC ####[facility] Frwlfehwvm5661 [place] [phone]. Garima Heraclio Platelet mean volume (Bld) [Entitic vol] 8.7 fL Critically low 9.5-13.5 [facility] Comment on above: Performed By: #### C BC ####[facility] Abvqnqerfb[address] [place], [place] [address]Dr. Garima Heraclio PLT 195 103/ul Normal 150-450 [facility] Comment on above: Performed By: #### C BC ####[facility] Auzekzrgds1343 [place] [phone]. Garima Pulliam RBC 4.64 106/ul Critically low 4.70-6.10 [facility] Comment on above: Performed By: #### C BC ####[facility] Moslmhdjoq1019 [place] [address]Dr. Garima Pulliam WBC 8.6 103/ul Normal 4.0-11.0 [facility] Comment on above: Performed By: #### C BC ####[facility] Riqplrofvm3184 [place] [address]Dr. Garima Pulliam PROF CHEM 8 (BAS METB)on Anion gap [Moles/Vol] 6.7 mmol/L Normal [facility] Comment on above: Performed By: #### B BATTERY CONTAINER TESTER, BMP, HSTROPN ####[facility] Hfbozrhorm1312 [place] [address]Dr. Garima Pulliam Calcium [Mass/Vol] 8.8 mg/dL Normal 8.5-10.1 [facility] Comment on above: Performed By: #### B BATTERY CONTAINER TESTER, BMP, HSTROPN ####[facility] Egwxkaxhkq9[address] [place], [place] [address]Dr. Garima Pulliam Chloride [Moles/Vol] 106 mmol/L Normal 98-107 [facility] Comment on above: Performed By: #### B BATTERY CONTAINER TESTER, BMP, HSTROPN ####[facility] Dvcavfpove[address] [place], [place] [address]Dr. Garima Pulliam CO2 [Moles/Vol] 31.4 mmol/L Normal 21.0-32.0 [facility] Comment on above: Performed By: #### B BATTERY CONTAINER TESTER, BMP, HSTROPN ####[facility] Ioenznzxdh20[address] [place], [place] [address]Dr. Garima Pulliam Creatinine [Mass/Vol] 0.75 mg/dL Normal 0.70-1.30 [facility] Comment on above: Performed By: #### B BATTERY CONTAINER TESTER, BMP, HSTROPN ####[facility] Omzmxaftvd7684 [place] [address]Dr. Garima Pulliam EGFR-AF CITIZEN OF [place] >60 Normal >=60 [facility] Comment on above: Performed By: #### B BATTERY CONTAINER TESTER, BMP, HSTROPN ####[facility] Xasgwvojes0590 [place] [address]Dr. Garima Pulliam EGFR-NON AF CITIZEN OF [place] >60 Normal >=60 [facility] Comment on above: Performed By: #### B BATTERY CONTAINER TESTER, BMP, HSTROPN ####[facility] Eeleenwkoi0749 [place] [address]Dr. Garima Pulliam Glucose [Mass/Vol] 161 mg/dL Critically high 74-106 [facility] Comment on above: Performed By: #### B BATTERY CONTAINER TESTER, BMP, HSTROPN ####[facility] Pmakjrzxaw0020 [place] [address]Dr. Garima Pulliam Potassium [Moles/Vol] 4.1 mmol/L Normal 3.5-5.1 [facility] Comment on above: Performed By: #### B BATTERY CONTAINER TESTER, BMP, HSTROPN ####[facility] Ssshrkywqu2841 [place] [address]Dr. Garima Pulliam Sodium [Moles/Vol] 140 mmol/L Normal 136-145 [facility] Comment on above: Performed By: #### B BATTERY CONTAINER TESTER, BMP, HSTROPN ####[facility] Dgkoyagqxk3984 [place] [address]Dr. Garima Pulliam Urea nitrogen [Mass/Vol] 7.0 mg/dL Normal 7.0-18.0 [facility] Comment on above: Performed By: #### B BATTERY CONTAINER TESTER, BMP, HSTROPN ####[facility] Pmcxvepfgn8907 [place] [address]Dr. Garima Pulliam Urea nitrogen/Creatinine [Mass ratio] 9.3 mg/mg Normal [facility] Comment on above: Performed By: #### B BATTERY CONTAINER TESTER, BMP, HSTROPN ####[facility] Ejbigzhqmx1082 [place] [address]Dr. Garima Pulliam TROPONIN, HIGH SENSITIVITYon 03-16-2023 HSTROP 9.7 pg/mL Normal 4.0-76.1 [facility] Comment on above: Result Comment: CUT- OFF POINTS HAVE BEEN ESTABLISHED BASED ON THE FOURTH UNIVERSAL DEFINITIONS OF MYOCARDIALINFARCTION. THE UPPER REFERENCE LIMIT (URL) OF TROPONIN, DEFINED THE 99TH PERCENTILE OFcTnI DISTRIBUTION IN A REFERENCE POPULATION, HAS BEEN CONFIRMED THE DECISION THRESHOLDFOR [place] DIAGNOSIS. Performed By: #### B BATTERY CONTAINER TESTER, BMP, HSTROPN ####[facility] Mjkwhnnhdn8782 [place] [address]Dr. Garima Pulliam XR CHEST 1 Von 03-16-2023 XR CHEST 1 V Normal [facility] BNPon 03-06-2023 Natriuretic peptide B (Bld) [Mass/Vol] 111.0 pg/mL Normal <=900.0 [facility] Comment on above: Performed By: #### C MP, BNP, CK ####[facility] Kiyozrrzzs8257 [place] [address]Dr. Chapisrenu Pulliam CBC AUTO DIFFon 03-06-2023 BASO # 0.0 103/ul Normal 0.0-0.1 [facility] Comment on above: Performed By: #### C BC ####[facility] Mrzgfwwjfn[address] [place], [place] [address]Dr. Garima Pulliam Basophils/100 WBC (Bld) 0.2 % Normal 0.2-2.0 [facility] Comment on above: Performed By: #### C BC ####[facility] Cehbodlpfu[address] [place], [place] [address]Dr. Garima Pulliam EO # 0.3 103/ul Normal 0.0-0.7 [facility] Comment on above: Performed By: #### C BC ####[facility] Ycfxetpgva[address] [place], [place] [address]Dr. Garima Pulliam Eosinophils/100 WBC (Bld) 3.5 % Normal 0.9-7.0 [facility] Comment on above: Performed By: #### C BC ####[facility] Qzqsqbprxd[address] [place], [place] [address]Dr. Garima Pulliam Erythrocyte distribution width (RBC) [Ratio] 13.3 % Normal 11.0-15.0 [facility] Comment on above: Performed By: #### C BC ####[facility] Ptokblbbdp10[address] [place], [place] [address]Dr. Garima Pulliam Hematocrit (Bld) [Volume fraction] 43.7 % Normal 42.0-54.0 [facility] Comment on above: Performed By: #### C BC ####[facility] Zqofidiaal2140 [place] [address]Dr. Garima Pulliam Hemoglobin (Bld) [Mass/Vol] 14.7 g/dL Normal 14.0-18.0 [facility] Comment on above: Performed By: #### C BC ####[facility] Locablsmwv4457 [place] [address]Dr. Chapisrenu Heraclio IG # 0.03 10e3/ul Normal 0.00-0.03 [facility] Comment on above: Performed By: #### C BC ####[facility] Gnthqkdnep[address] [place], [place] [address]Dr. Garima Pulliam IG % 0.4 % Normal 0.0-0.5 [facility] Comment on above: Performed By: #### C BC ####[facility] Zsavxhqqvf[address] [place], [place] [address]Dr. Garima Pulliam LYMPH # 2.0 103/ul Normal 1.2-3.8 [facility] Comment on above: Performed By: #### C BC ####[facility] W[address]zkiwftku[address] [place], [place] [address]DrAdalberto Pulliam Lymphocytes/100 WBC (Bld) 23.7 % Normal 20.5-60.0 [facility] Comment on above: Performed By: #### C BC ####[facility] Mxsyznsgvx2231 [place] [address]Dr. Garima Pulliam MANUAL DIFF REQ NO Normal [facility] Comment on above: Performed By: #### C BC ####[facility] Pdmjvdpzmo0384 [place] [phone] Pulliam MCH (RBC) [Entitic mass] 30.1 pg Normal 25.9-34.0 [facility] Comment on above: Performed By: #### C BC ####[facility] Fokywuzlgq8625 [place] [phone]. Garima Pulliam MCHC (RBC) [Mass/Vol] 33.6 g/dL Normal 29.9-35.2 [facility] Comment on above: Performed By: #### C BC ####[facility] Ypkfqerbux2136 [place] [address]Dr. Garima Heraclio MCV (RBC) [Entitic vol] 89.4 fL Normal 80.0-94.0 [facility] Comment on above: Performed By: #### C BC ####[facility] Qhcvlekbzg2216 [place] [address]Dr. Garima Pulliam MONO # 0.8 103/ul Normal 0.3-0.8 [facility] Comment on above: Performed By: #### C BC ####[facility] Izbcnfkxto9310 [place] [address]Dr. Garima Pulliam Monocytes/100 WBC (Bld) 9.0 % Normal 1.7-12.0 [facility] Comment on above: Performed By: #### C BC ####[facility] Sm[address]jmrhpn[address] [place], [place] [address]Dr. Garima Pulliam NEUT # 5.4 103/ul Normal 1.4-6.5 [facility] Comment on above: Performed By: #### C BC ####[facility] Kcpxksufqx[address] [place], [place] [address]Dr. Garima Pulliam Neutrophils/100 WBC (Bld) 63.2 % Normal 43.0-75.0 [facility] Comment on above: Performed By: #### C BC ####[facility] Aofdtoneta9[address] [place], [place] [address]Dr. Garima Pulliam Platelet mean volume (Bld) [Entitic vol] 9.0 fL Critically low 9.5-13.5 [facility] Comment on above: Performed By: #### C BC ####[facility] Cepuhbvzvx[address] [place], [place] [address]Dr. Garima Pulliam PLT 218 103/ul Normal 150-450 [facility] Comment on above: Performed By: #### C BC ####[facility] Abdayliqys1009 [place] [phone]. Garima Pulliam RBC 4.89 106/ul Normal 4.70-6.10 [facility] Comment on above: Performed By: #### C BC ####[facility] Dacyppdffl6285 [place] [address]Dr. Garima Pulliam WBC 8.5 103/ul Normal 4.0-11.0 [facility] Comment on above: Performed By: #### C BC ####[facility] Pyradngufd9922 [place] [address]Dr. Garima Pulliam CPKon 03-06-2023 CK [Catalytic activity/Vol] 191 U/L Normal 39-308 [facility] Comment on above: Performed By: #### C MP, BNP, CK ####[facility] Eoewnwocbj1205 [place] [address]Dr. Garima Pulliam PROF 14(COMP METB)on 023 Albumin [Mass/Vol] 3.6 g/dL Normal 3.4-5.0 [facility] Comment on above: Performed By: #### C MP, BNP, CK ####[facility] Kmdeoledki7606 [place] [address]Dr. Garima Pulliam Albumin/Globulin [Mass ratio] 1.2 {ratio} Normal [facility] Comment on above: Performed By: #### C MP, BNP, CK ####[facility] Rntwlmkkgb1552 [place] [address]Dr. Garima Pulliam ALP [Catalytic activity/Vol] 91 U/L Normal 46-116 [facility] Comment on above: Performed By: #### C MP, BNP, CK ####[facility] Uykkmzfugp7203 [place] [address]Dr. Garima Pulliam ALT [Catalytic activity/Vol] 33 U/L Normal 16-63 [facility] Comment on above: Performed By: #### C MP, BNP, CK ####[facility] Bilkdxqqre5273 [place] [address]Dr. Garima Pulliam Anion gap [Moles/Vol] 10.3 mmol/L Normal [facility] Comment on above: Performed By: #### C MP, BNP, CK ####[facility] Fauczpyjat0746 [place] [address]Dr. Garima Pulliam AST [Catalytic activity/Vol] 17 U/L Normal 15-37 [facility] Comment on above: Performed By: #### C MP, BNP, CK ####[facility] Faqrpbfomf9444 [place] [address]Dr. Garima Pulliam Bilirubin [Mass/Vol] 0.4 mg/dL Normal 0.2-1.0 [facility] Comment on above: Performed By: #### C MP, BNP, CK ####[facility] Mpxnrbphts0751 [place] [address]Dr. Garima Pulliam Calcium [Mass/Vol] 9.1 mg/dL Normal 8.5-10.1 [facility] Comment on above: Performed By: #### C MP, BNP, CK ####[facility] Xagmqyzcuo4428 [place] [address]Dr. Garima Pulliam Chloride [Moles/Vol] 102 mmol/L Normal 98-107 [facility] Comment on above: Performed By: #### C MP, BNP, CK ####[facility] Pfbkiabhwz0995 [place] [address]Dr. Garima Pulliam CO2 [Moles/Vol] 29.7 mmol/L Normal 21.0-32.0 [facility] Comment on above: Performed By: #### C MP, BNP, CK ####[facility] Xirocgxkop5239 [place] [address]Dr. Garima Pulliam Creatinine [Mass/Vol] 0.79 mg/dL Normal 0.70-1.30 [facility] Comment on above: Performed By: #### C MP, BNP, CK ####[facility] Ufgxcfgqop7349 [place] [address]Dr. Garima Pulliam EGFR-AF CITIZ[place] >60 Normal >=60 [facility] Comment on above: Performed By: #### C MP, BNP, CK ####[facility] Ugldgwbzkf4849 [place] [address]Dr. Garima Pulliam EGFR-NON AF CITIZEN OF [place] >60 Normal >=60 [facility] Comment on above: Performed By: #### C MP, BNP, CK ####[facility] Ytowimburb0702 [place] [address]Dr. Garima Pulliam Globulin (S) [Mass/Vol] 3.0 g/dL Normal [facility] Comment on above: Performed By: #### C MP, BNP, CK ####[facility] Gkdyhtucxf5343 [place] [address]Dr. Garima Pulliam Glucose [Mass/Vol] 202 mg/dL Critically high 74-106 [facility] Comment on above: Performed By: #### C MP, BNP, CK ####[facility] Ziyyngsinb7772 [place] [address]Dr. Garima Pulliam Potassium [Moles/Vol] 4.0 mmol/L Normal 3.5-5.1 [facility] Comment on above: Performed By: #### C MP, BNP, CK ####[facility] Sxbnrjxrio2269 [place] [address]Dr. Garima Pulliam Protein [Mass/Vol] 6.6 g/dL Normal 6.4-8.2 [facility] Comment on above: Performed By: #### C MP, BNP, CK ####[facility] Zksrgsclbe[address] [place], [place] [address]Dr. Garima Pulliam Sodium [Moles/Vol] 138 mmol/L Normal 136-145 [facility] Comment on above: Performed By: #### C MP, BNP, CK ####[facility] Mbluygblyw4[address] [place], [place] [address]Dr. Garima Pulliam Urea nitrogen [Mass/Vol] 10.0 mg/dL Normal 7.0-18.0 [facility] Comment on above: Performed By: #### C MP, BNP, CK ####[facility] Zsrnsbzbfc3176 [place] [address]Dr. Garima Pulliam Urea nitrogen/Creatinine [Mass ratio] 12.7 mg/mg Normal [facility] Comment on above: Performed By: #### C MP, BNP, CK ####[facility] Qkenkcoayz1117 [place] [address]Dr. Garima Uplliam US VERONICA DOP LEG BILon 023 US VERONICA DOP LEG BENOIT Normal The [facility] CBC AUTO DIFFon 01-13-2023 BASO # 0.0 103/ul Normal 0.0-0.1 [facility] Comment on above: Performed By: #### C BC ####[facility] Unosuztbuj4408 [place] [id number]. Chapisrenu Pulliam Basophils/100 WBC (Bld) 0.0 % Critically low 0.2-2.0 [facility] Comment on above: Performed By: #### C BC ####[facility] Hvobmfykjp5301 [place] [address]Dr. Garima Pulliam EO # 0.0 103/ul Normal 0.0-0.7 [facility] Comment on above: Performed By: #### C BC ####[facility] [address]fgvbyypst[address] [place], [place] [address]Dr. Garima Pulliam Eosinophils/100 WBC (Bld) 0.0 % Critically low 0.9-7.0 [facility] Comment on above: Performed By: #### C BC ####[facility] Ovbxxskkvl3552 [place] [address]Dr. Garima Pulliam Erythrocyte distribution width (RBC) [Ratio] 13.2 % Normal 11.0-15.0 [facility] Comment on above: Performed By: #### C BC ####[facility] Vdrlbhvkjd[address] [place], [place] [address]Dr. Garima Pulliam Hematocrit (Bld) [Volume fraction] 46.7 % Normal 42.0-54.0 [facility] Comment on above: Performed By: #### C BC ####[facility] Igfesrundh123[address] [place], [place] [address]Dr. Garima Pulliam Hemoglobin (Bld) [Mass/Vol] 15.6 g/dL Normal 14.0-18.0 [facility] Comment on above: Performed By: #### C BC ####[facility] Dsnjjuawmk[address] [place], [place] [address]Dr. Garima Pulliam IG # 0.01 10e3/ul Normal 0.00-0.03 [facility] Comment on above: Performed By: #### C BC ####[facility] Trsgdnmwep4454 [place] [id number]. Garima Pulliam IG % 0.2 % Normal 0.0-0.5 [facility] Comment on above: Performed By: #### C BC ####[facility] Vvahhqsnyl8526 [place] [phone]. Garima Pulliam LYMPH # 0.8 103/ul Critically low 1.2-3.8 [facility] Comment on above: Performed By: #### C BC ####[facility] Vkphyqmfru6326 [place] [phone]. Garima Pulliam Lymphocytes/100 WBC (Bld) 12.7 % Critically low 20.5-60.0 [facility] Comment on above: Performed By: #### C BC ####[facility] Mwehqyalcj5356 [place] [address]Dr. Garima Pulliam MANUAL DIFF REQ NO Normal [facility] Comment on above: Performed By: #### C BC ####[facility] Catsmfgivz7913 [place] [phone]. Garima Pulliam MCH (RBC) [Entitic mass] 30.2 pg Normal 25.9-34.0 [facility] Comment on above: Performed By: #### C BC ####[facility] Yhnnfmlkaf9177 [place] [phone]. Garima Pulliam MCHC (RBC) [Mass/Vol] 33.4 g/dL Normal 29.9-35.2 [facility] Comment on above: Performed By: #### C BC ####[facility] Ecjysnfvpy1817 [place] [phone]. Garima Pulliam MCV (RBC) [Entitic vol] 90.3 fL Normal 80.0-94.0 [facility] Comment on above: Performed By: #### C BC ####[facility] Afjflujyvm3175 [place] [address]Dr. Garima Heraclio MONO # 0.1 103/ul Critically low 0.3-0.8 The [facility] Comment on above: Performed By: #### C BC ####[facility] Dgqmkdjbyx8647 [place] [phone]. Garima Pulliam Monocytes/100 WBC (Bld) 0.9 % Critically low 1.7-12.0 [facility] Comment on above: Performed By: #### C BC ####[facility] Rafgmvchjo4210 [place] [phone]. Garima Pulliam NEUT # 5.6 103/ul Normal 1.4-6.5 [facility] Comment on above: Performed By: #### C BC ####[facility] Dauxhujeql7834 [place] [phone]. Garima Pulliam Neutrophils/100 WBC (Bld) 86.2 % Critically high 43.0-75.0 [facility] Comment on above: Performed By: #### C BC ####[facility] Zbzuqqdovw3137 [place] [address]Dr. Garima Pulliam Platelet mean volume (Bld) [Entitic vol] 9.1 fL Critically low 9.5-13.5 [facility] Comment on above: Performed By: #### C BC ####[facility] Vsxdebggyo[address] [place], [place] [address]Dr. Garima Pulliam PLT 169 103/ul Normal 150-450 [facility] Comment on above: Performed By: #### C BC ####[facility] Rbspanwrop308[address] [place], [place] [address]Dr. Garima Pulliam RBC 5.17 106/ul Normal 4.70-6.10 [facility] Comment on above: Performed By: #### C BC ####[facility] Ifldahxdua[address] [place], [place] [address]Dr. Garima Pulliam WBC 6.5 103/ul Normal 4.0-11.0 [facility] Comment on above: Performed By: #### C BC ####[facility] Dqjiuhpchv[address] [place], [place] [address]Dr. Garima Pulliam D-DIMERon 01-13-2023 D-DIMER 0.41 mg/L FEU Normal <=0.[facility] Comment on above: Performed By: #### D DIM ####[facility] Zjpnfgzemj3212 [place] [address]Dr. Garima Pulliam D-DIMER COMMENTS SEE BELOW Normal [facility] Comment [...] generalized hospitalization. Performed By: #### D DIM ####[facility] [address]qiihuoovn[address] [place], [place] [address]Dr. Garima Pulliam PROF 14(COMP METB)on 023 Albumin [Mass/Vol] 3.4 g/dL Normal 3.4-5.0 [facility] Comment on above: Performed By: #### C MP ####[facility] Zkemjauxji[address] [place], [place] [address]Dr. Garima Pulliam Albumin/Globulin [Mass ratio] 1.3 {ratio} Normal [facility] Comment on above: Performed By: #### C MP ####[facility] Jklymnaxju[address] [place], [place] [address]Dr. Garima Pulliam ALP [Catalytic activity/Vol] 83 U/L Normal 46-116 [facility] Comment on above: Performed By: #### C MP ####[facility] Exusijlgnl[address] [place], [place] [address]Dr. Garima Pulliam ALT [Catalytic activity/Vol] 25 U/L Normal 16-63 [facility] Comment on above: Performed By: #### C MP ####[facility] [address]yubvt[address] [place] [address]Dr. Garima Pulliam Anion gap [Moles/Vol] 14.5 mmol/L Normal [facility] Comment on above: Performed By: #### C MP ####[facility] Ggtqvgsasr[address] [place], [place] [address]Dr. Garima Pulliam AST [Catalytic activity/Vol] 19 U/L Normal 15-37 [facility] Comment on above: Performed By: #### C MP ####[facility] Vnmremyajt[address] [place], [place] [address]Dr. Garima Pulliam Bilirubin [Mass/Vol] 0.4 mg/dL Normal 0.2-1.0 [facility] Comment on above: Performed By: #### C MP ####[facility] Btkdqixfle407[address] [place], [place] [address]Dr. Garima Pulliam Calcium [Mass/Vol] 8.7 mg/dL Normal 8.5-10.1 [facility] Comment on above: Performed By: #### C MP ####[facility] Unavxebayd177[address] [place], [place] [address]Dr. Garima Pulliam Chloride [Moles/Vol] 104 mmol/L Normal 98-107 [facility] Comment on above: Performed By: #### C MP ####[facility] Wnqfzjnzxw[address] [place], [place] [address]Dr. Garima Pulliam CO2 [Moles/Vol] 24.5 mmol/L Normal 21.0-32.0 [facility] Comment on above: Performed By: #### C MP ####[facility] Ygjujxrmsa[address] [place], [place] [address]Dr. Garima Pulliam Creatinine [Mass/Vol] 0.70 mg/dL Normal 0.70-1.30 [facility] Comment on above: Performed By: #### C MP ####[facility] Qosemgzaxf14[address] [place], [place] [address]Dr. Garima Heraclio EGFR-AF CITIZEN [place] >60 Normal >=60 [facility] Comment on above: Performed By: #### C MP ####[facility] Vdrkmpmruz[address] [place], [place] [address]Dr. Chapisrenu Heraclio EGFR-NON AF CITIZEN OF [place] >60 Normal >=60 [facility] Comment on above: Performed By: #### C MP ####[facility] Hnseivfxxn[address] [place], [place] [address]Dr. Chapisrenu Pulliam Globulin (S) [Mass/Vol] 2.6 g/dL Normal [facility] Comment on above: Performed By: #### C MP ####[facility] [address]zmiqmwgli[address] [place] [address]Dr. Garima Pulliam Glucose [Mass/Vol] 196 mg/dL Critically high 74-106 [facility] Comment on above: Performed By: #### C MP ####[facility] [address]yrjcawtwz[address] [place] [address]Dr. Garima Pulliam Potassium [Moles/Vol] 4.0 mmol/L Normal 3.5-5.1 [facility] Comment on above: Performed By: #### C MP ####[facility] Cpwrhnihat13[address] [place] [address]Dr. Garima Pulliam Protein [Mass/Vol] 6.0 g/dL Critically low 6.4-8.2 [facility] Comment on above: Performed By: #### C MP ####[facility] Hokcduevaw7[address] [place], [place] [address]Dr. Garima Pulliam Sodium [Moles/Vol] 139 mmol/L Normal 136-145 [facility] Comment on above: Performed By: #### C MP ####[facility] Tzxmacfqbj87[address] [place], [place] [address]Dr. Garima Pulliam Urea nitrogen [Mass/Vol] 7.0 mg/dL Normal 7.0-18.0 [facility] Comment on above: Performed By: #### C MP ####[facility] Pdzvqcynfb94[address] [place], [place] [address]Dr. Garima Heraclio Urea nitrogen/Creatinine [Mass ratio] 10.0 mg/mg Normal [facility] Comment on above: Performed By: #### C MP ####[facility] Pzrigppcvw8[address] [place], [place] [address]Dr. Garima Heraclio BNPon 01-12-2023 Natriuretic peptide B (Bld) [Mass/Vol] 141.0 pg/mL Normal <=900.0 [facility] Comment on above: Performed By: #### C MP, BNP, HSTROPN ####[facility] Iwkhclnywi[address] [place], [place] [address]Dr. Garima Heraclio CBC AUTO DIFFon 01-12-2023 BASO # 0.0 103/ul Normal 0.0-0.1 [facility] Comment on above: Performed By: #### C BC ####[facility] Xtowgqynha[address] [place] [id number]. Garima Heraclio Basophils/100 WBC (Bld) 0.2 % Normal 0.2-2.0 [facility] Comment on above: Performed By: #### C BC ####[facility] Olmqwlxyuk[address] [place] [address]Dr. Garima Heraclio EO # 0.2 103/ul Normal 0.0-0.7 [facility] Comment on above: Performed By: #### C BC ####[facility] Vbacpfuhuz[address] [place] [address]Dr. Garima Heraclio Eosinophils/100 WBC (Bld) 2.7 % Normal 0.9-7.0 [facility] Comment on above: Performed By: #### C BC ####[facility] Vryfwcwyzr69[address] [place], [place] [address]Dr. Garima Pulliam Erythrocyte distribution width (RBC) [Ratio] 13.3 % Normal 11.0-15.0 [facility] Comment on above: Performed By: #### C BC ####[facility] Tukuminwei[address] [place], [place] [address]Dr. Garima Pulliam Hematocrit (Bld) [Volume fraction] 42.3 % Normal 42.0-54.0 [facility] Comment on above: Performed By: #### C BC ####[facility] Ararenewbm49[address] [place], [place] [address]Dr. Garima Pulliam Hemoglobin (Bld) [Mass/Vol] 14.3 g/dL Normal 14.0-18.0 [facility] Comment on above: Performed By: #### C BC ####[facility] Dyowgqfmuf[address] [place], [place] [address]Dr. Garima Pulliam IG # 0.02 10e3/ul Normal 0.00-0.03 [facility] Comment on above: Performed By: #### C BC ####[facility] Hfj[address]obehzy45[address] [place] [id number]. Garima Pulliam IG % 0.2 % Normal 0.0-0.5 [facility] Comment on above: Performed By: #### C BC ####[facility] Xhrnkauacy39[address] [place] [phone]. Garima Pulliam LYMPH # 2.6 103/ul Normal 1.2-3.8 [facility] Comment on above: Performed By: #### C BC ####[facility] Gasrldgbxf4[address] [place] [phone]. Garima Heraclio Lymphocytes/100 WBC (Bld) 29.6 % Normal 20.5-60.0 [facility] Comment on above: Performed By: #### C BC ####[facility] Zqocqdcvua24[address] [place] [address]Dr. Garima Heraclio MANUAL DIFF REQ NO Normal [facility] Comment on above: Performed By: #### C BC ####[facility] Xvumqdyetn9[address] [place] [phone]. Garima Pulliam MCH (RBC) [Entitic mass] 30.2 pg Normal 25.9-34.0 [facility] Comment on above: Performed By: #### C BC ####[facility] Bfspxpudqk38[address] [place] [address]Dr. Garima Pulliam MCHC (RBC) [Mass/Vol] 33.8 g/dL Normal 29.9-35.2 [facility] Comment on above: Performed By: #### C BC ####[facility] Mcasodcvji48[address] [place] [phone]. Garima Pulliam MCV (RBC) [Entitic vol] 89.2 fL Normal 80.0-94.0 [facility] Comment on above: Performed By: #### C BC ####[facility] Ikuwqhqsxn[address] [place], [place] [address]Dr. Chapisrenu Pulliam MONO # 0.7 103/ul Normal 0.3-0.8 [facility] Comment on above: Performed By: #### C BC ####[facility] Nzpxfvburl9[address] [place] [phone]. Garima Pulliam Monocytes/100 WBC (Bld) 8.3 % Normal 1.7-12.0 [facility] Comment on above: Performed By: #### C BC ####[facility] Zvx[address]uzluhk22[address] [place] [phone]. Garima Pulliam NEUT # 5.1 103/ul Normal 1.4-6.5 [facility] Comment on above: Performed By: #### C BC ####[facility] Yqqzekijtg6363 [place] [phone]. Garima Pulliam Neutrophils/100 WBC (Bld) 59.0 % Normal 43.0-75.0 [facility] Comment on above: Performed By: #### C BC ####[facility] Ohtupoqjjf6[address] [place] [address]Dr. Garima Pulliam Platelet mean volume (Bld) [Entitic vol] 8.7 fL Critically low 9.5-13.5 [facility] Comment on above: Performed By: #### C BC ####[facility] Zepkqjfcxw34[address] [place] [address]Dr. Garima Pulliam PLT 182 103/ul Normal 150-450 [facility] Comment on above: Performed By: #### C BC ####[facility] Jkiwtlnmur0284 [place] [phone]. Garima Pulliam RBC 4.74 106/ul Normal 4.70-6.10 [facility] Comment on above: Performed By: #### C BC ####[facility] [address]yqftvf[address] [place], [place] [address]Dr. Garima Pulliam WBC 8.7 103/ul Normal 4.0-11.0 [facility] Comment on above: Performed By: #### C BC ####[facility] Ekhoopvayf[address] [place], [place] [address]Dr. Garima Pulliam Covid-19 PCR (CVDTB)on 12-25 SARS-CoV-2 (COVID-19) RNA MARIE+probe Ql (Unsp spec) Not detected Normal NOT DETECTED [facility] Comment on above: Result Comment: When diagnostic [...] for this test is supported by the [place] Supervisor of Health and Human Service's declaration [...] be used). Performed By: #### C VDTBH ####[facility] [address]utseyum[address] [place] [address]Dr. Garima Pulliam PROF 14(COMP METB)on 023 Albumin [Mass/Vol] 3.6 g/dL Normal 3.4-5.0 [facility] Comment on above: Performed By: #### C MP, BNP, HSTROPN ####[facility] Znhgtffvsq04[address] [place] [address]Dr. Garima Pulliam Albumin/Globulin [Mass ratio] 1.5 {ratio} Normal [facility] Comment on above: Performed By: #### C MP, BNP, HSTROPN ####[facility] Telnffxnlk26[address] [place] [address]Dr. Garima Pulliam ALP [Catalytic activity/Vol] 79 U/L Normal 46-116 [facility] Comment on above: Performed By: #### C MP, BNP, HSTROPN ####[facility] Qmnxknsxto09[address] [place] [address]Dr. Garima Pulliam ALT [Catalytic activity/Vol] 27 U/L Normal 16-63 [facility] Comment on above: Performed By: #### C MP, BNP, HSTROPN ####[facility] Y[address]aybhquf[address] [place] [address]Dr. Garima Pulliam Anion gap [Moles/Vol] 11.7 mmol/L Normal [facility] Comment on above: Performed By: #### C MP, BNP, HSTROPN ####[facility] Nfvayaojjy4349 [place] [address]Dr. Garima Pulliam AST [Catalytic activity/Vol] 21 U/L Normal 15-37 [facility] Comment on above: Performed By: #### C MP, BNP, HSTROPN ####[facility] Fnurlfxqas3[address] [place] [address]Dr. Garima Pulliam Bilirubin [Mass/Vol] 0.3 mg/dL Normal 0.2-1.0 [facility] Comment on above: Performed By: #### C MP, BNP, HSTROPN ####[facility] Wmqbrekmkn75[address] [place] [address]Dr. Garima Pulliam Calcium [Mass/Vol] 8.9 mg/dL Normal 8.5-10.1 [facility] Comment on above: Performed By: #### C MP, BNP, HSTROPN ####[facility] Sxmnmidhuq87[address] [place] [address]Dr. Garima Pulliam Chloride [Moles/Vol] 107 mmol/L Normal 98-107 [facility] Comment on above: Performed By: #### C MP, BNP, HSTROPN ####[facility] Lwxfkyylsh224[address] [place] [address]Dr. Garima Pulliam CO2 [Moles/Vol] 26.0 mmol/L Normal 21.0-32.0 [facility] Comment on above: Performed By: #### C MP, BNP, HSTROPN ####[facility] [address]zuephcmw[address] [place] [address]Dr. Garima Pulliam Creatinine [Mass/Vol] 0.65 mg/dL Critically low 0.70-1.30 [facility] Comment on above: Performed By: #### C MP, BNP, HSTROPN ####[facility] B[address]lelifmz[address] [place] [address]Dr. Yilan Pulliam EGFR-AF [place]IZ[place] >60 Normal >=60 [facility] Comment on above: Performed By: #### C MP, BNP, HSTROPN ####[facility] Keaxhucdfd66[address] [place] [address]Dr. Garima Pulliam EGFR-NON AF CITIZEN OF [place] >60 Normal >=60 [facility] Comment on above: Performed By: #### C MP, BNP, HSTROPN ####[facility] Kdhzefpqev57[address] [place] [address]Dr. Garima Pulliam Globulin (S) [Mass/Vol] 2.4 g/dL Normal [facility] Comment on above: Performed By: #### C MP, BNP, HSTROPN ####[facility] Aobfuhtvnv[address] [place], [place] [address]Dr. Garima Pulliam Glucose [Mass/Vol] 85 mg/dL Normal 74-106 [facility] Comment on above: Performed By: #### C MP, BNP, HSTROPN ####[facility] Dqmbnprmwp45[address] [place] [address]Dr. Garima Pulliam Potassium [Moles/Vol] 3.7 mmol/L Normal 3.5-5.1 [facility] Comment on above: Performed By: #### C MP, BNP, HSTROPN ####[facility] Opttdlgvwb29[address] [place] [address]Dr. Garima Pulliam Protein [Mass/Vol] 6.0 g/dL Critically low 6.4-8.2 [facility] Comment on above: Performed By: #### C MP, BNP, HSTROPN ####[facility] Zltyifggko30[address] [place] [address]Dr. Garima Pulliam Sodium [Moles/Vol] 141 mmol/L Normal 136-145 [facility] Comment on above: Performed By: #### C MP, BNP, HSTROPN ####[facility] Bjnlcabuwm1504 [place] [address]Dr. Garima Pulliam Urea nitrogen [Mass/Vol] 5.0 mg/dL Critically low 7.0-18.0 [facility] Comment on above: Performed By: #### C MP, BNP, HSTROPN ####[facility] Rhyplzljag26[address] [place] [address]Dr. Garima Pulliam Urea nitrogen/Creatinine [Mass ratio] 7.7 mg/mg Normal [facility] Comment on above: Performed By: #### C MP, BNP, HSTROPN ####[facility] Fahcgiouen[address] [place] [address]Dr. Garima Pulliam PROTIMEon 01-12-2023 INR Coag (PPP) [Relative time] 1.16 {INR} Normal [facility] Comment on above: Performed By: #### P TT, PT ####[facility] [address]qeutbzeh[address] [place] [address]Dr. Garima Pulliam INR GUIDELINES SEE BELOW Normal [facility] Comment on above: Result Comment: WESLEY RED INR: 2.0 - 3.0 CONDITIONS NOT LISTED BELOW 2.5 - 3.5 FOR PROSTHETIC HEART VALVE REPLACEMENT 2.5 - 3.5 RECURRENT THROMBOSIS Performed By: #### P TT, PT ####[facility] Wpngdtnaue[address] [place], [place] [address]Dr. Garima Pulliam PT Coag (PPP) [Time] 12.2 s Critically high 9.0-11.6 [facility] Comment on above: Performed By: #### P TT, PT ####[facility] Rmzbfyisnl8[address] [place] [address]Dr. Garima Pulliam PTTon 01-12-2023 aPTT Coag (Bld) [Time] 29.1 s Normal 22.3-36.2 [facility] Comment on above: Performed By: #### P TT, PT ####[facility] Bibjernkbs[address] [place], [place] [address]Dr. Garima Pulliam TROPONIN, HIGH SENSITIVITYon 01-12-2023 HSTROP 10.3 pg/mL Normal 4.0-76.1 [facility] Comment on above: Result Comment: CUT- OFF POINTS HAVE BEEN ESTABLISHED BASED ON THE FOURTH UNIVERSAL DEFINITIONS OF MYOCARDIALINFARCTION. THE UPPER REFERENCE LIMIT (URL) OF TROPONIN, DEFINED THE 99TH PERCENTILE OFcTnI DISTRIBUTION IN A REFERENCE POPULATION, HAS BEEN CONFIRMED THE DECISION THRESHOLDFOR [place] DIAGNOSIS. Performed By: #### H STROPN ####[facility] Egkvjevubh15[address] [place] [address]Dr. Garima Pulliam HSTROP 9.2 pg/mL Normal 4.0-76.1 [facility] Comment on above: Result Comment: CUT- OFF POINTS HAVE BEEN ESTABLISHED BASED ON THE FOURTH UNIVERSAL DEFINITIONS OF MYOCARDIALINFARCTION. THE UPPER REFERENCE LIMIT (URL) OF TROPONIN, DEFINED THE 99TH PERCENTILE OFcTnI DISTRIBUTION IN A REFERENCE POPULATION, HAS BEEN CONFIRMED THE DECISION THRESHOLDFOR [place] DIAGNOSIS. Performed By: #### C MP, BNP, HSTROPN ####[facility] Ffiajrlczj26[address] [place] [address]Dr. Garima Pulliam XR CHEST 1 Von 01-12-2023 XR CHEST 1 V Normal [facility] XR CHEST 1 Von 01-01-2023 XR CHEST 1 V Normal [facility] CARDIAC NASH 3-6on 3 CK [Catalytic activity/Vol] 196 U/L Normal 39-308 [facility] Comment on above: Performed By: #### C MREP ####[facility] Bgliijzcea[address] [place] [address]Dr. Garima Pulliam CK.MB [Mass/Vol] 7.41 ng/mL Critically high <=3.60 [facility] Comment on above: Performed By: #### C MREP ####[facility] Kuobiegrfe47[address] [place] [address]Dr. Garima Pulliam HSTROP 10.3 pg/mL Normal 4.0-76.1 [facility] Comment on above: Result Comment: CUT- OFF POINTS HAVE BEEN ESTABLISHED BASED ON THE FOURTH UNIVERSAL DEFINITIONS OF MYOCARDIALINFARCTION. THE UPPER REFERENCE LIMIT (URL) OF TROPONIN, DEFINED THE 99TH PERCENTILE OFcTnI DISTRIBUTION IN A REFERENCE POPULATION, HAS BEEN CONFIRMED THE DECISION THRESHOLDFOR [place] DIAGNOSIS. Performed By: #### C MREP ####[facility] Vahcxhytav[address] [place] [phone]. Garima Pulliam XR CHEST 1 Von 12-26-2022 XR CHEST 1 V Normal [facility] BNPon 12-25-2022 Natriuretic peptide B (Bld) [Mass/Vol] 98.0 pg/mL Normal <=900.0 [facility] Comment on above: Performed By: #### B MARVIN FRENCH CMADM ####[facility] Ivrlvgxubb48[address] [place] [address]Dr. Garima Pulliam CARDIAC NASH ADMITon 023 CK [Catalytic activity/Vol] 208 U/L Normal 39-308 [facility] Comment on above: Performed By: #### B MARVIN FRENCH CMADM ####[facility] Peycsuhfeh59[address] [place] [address]Dr. Garima Pulliam CK.MB [Mass/Vol] 7.63 ng/mL Critically high <=3.60 [facility] Comment on above: Performed By: #### B MARVIN FRENCH CMADM ####[facility] Urrggixikr[address] [place], [place] [address]Dr. Garima Pulliam HSTROP 8.8 pg/mL Normal 4.0-76.1 [facility] Comment on above: Result Comment: CUT- OFF POINTS HAVE BEEN ESTABLISHED BASED ON THE FOURTH UNIVERSAL DEFINITIONS OF MYOCARDIALINFARCTION. THE UPPER REFERENCE LIMIT (URL) OF TROPONIN, DEFINED THE 99TH PERCENTILE OFcTnI DISTRIBUTION IN A REFERENCE POPULATION, HAS BEEN CONFIRMED THE DECISION THRESHOLDFOR [place] DIAGNOSIS. Performed By: #### B MARVIN FRENCH CMADM ####[facility] Exotqsjeoh[address] [place], [place] [address]Dr. Garima Pulliam DORIS 83 ng/mL Normal 16-96 [facility] Comment on above: Performed By: #### B MARVIN FRENCH CMADM ####[facility] Orlwyeveno[address] [place], [place] [address]Dr. Garima Pulliam CBC AUTO DIFFon 12-25-2022 BASO # 0.0 103/ul Normal 0.0-0.1 [facility] Comment on above: Performed By: #### C BC ####[facility] Fqtpjkfwel[address] [place], [place] [address]Dr. Garima Pulliam Basophils/100 WBC (Bld) 0.0 % Critically low 0.2-2.0 [facility] Comment on above: Performed By: #### C BC ####[facility] Owesinwoet5[address] [place] [address]Dr. Garima Pulliam EO # 0.0 103/ul Normal 0.0-0.7 [facility] Comment on above: Performed By: #### C BC ####[facility] Otcjibyosq7[address] [place], [place] [address]Dr. Garima Pulliam Eosinophils/100 WBC (Bld) 0.7 % Critically low 0.9-7.0 [facility] Comment on above: Performed By: #### C BC ####[facility] Ckvqjdtees056[address] [place], [place] [address]Dr. Garima Pulliam Erythrocyte distribution width (RBC) [Ratio] 13.4 % Normal 11.0-15.0 [facility] Comment on above: Performed By: #### C BC ####[facility] Dcidxsikvv4[address] [place], [place] [address]Dr. Garima Pulliam Hematocrit (Bld) [Volume fraction] 42.9 % Normal 42.0-54.0 [facility] Comment on above: Performed By: #### C BC ####[facility] Fvyxvlqvne239[address] [place], [place] [address]Dr. Garima Pulliam Hemoglobin (Bld) [Mass/Vol] 14.4 g/dL Normal 14.0-18.0 [facility] Comment on above: Performed By: #### C BC ####[facility] Mktkugdzye[address] [place], [place] [address]Dr. Garima Pulliam IG # 0.00 10e3/ul Normal 0.00-0.03 [facility] Comment on above: Performed By: #### C BC ####[facility] Layhtvjdel[address] [place], [place] [address]Dr. Garima Pulliam IG % 0.0 % Normal 0.0-0.5 [facility] Comment on above: Performed By: #### C BC ####[facility] Azuusibrsu499[address] [place], [place] [address]Dr. Garima Pulliam LYMPH # 2.4 103/ul Normal 1.2-3.8 [facility] Comment on above: Performed By: #### C BC ####[facility] Uaneswgzbe5[address] [place] [id number]. Chapisrenu Pulliam Lymphocytes/100 WBC (Bld) 29.2 % Normal 20.5-60.0 [facility] Comment on above: Performed By: #### C BC ####[facility] Lhivbvuwrl1891 [place] [phone]. Garima Pulliam MANUAL DIFF REQ NO Normal [facility] Comment on above: Performed By: #### C BC ####[facility] Znfyfgqxrz7561 [place] [phone]. Garima Pulliam MCH (RBC) [Entitic mass] 30.7 pg Normal 25.9-34.0 [facility] Comment on above: Performed By: #### C BC ####[facility] Uihhtviznv[address] [place], [place] [address]Dr. Garima Pulliam MCHC (RBC) [Mass/Vol] 33.6 g/dL Normal 29.9-35.2 [facility] Comment on above: Performed By: #### C BC ####[facility] Rwqvyhyvvq[address] [place], [place] [address]Dr. Garima Pulliam MCV (RBC) [Entitic vol] 91.5 fL Normal 80.0-94.0 [facility] Comment on above: Performed By: #### C BC ####[facility] Nypfwnqtvb[address] [place], [place] [address]Dr. Garima Pulliam MONO # 0.0 103/ul Critically low 0.3-0.8 [facility] Comment on above: Performed By: #### C BC ####[facility] Kkblpvpnzu8310 [place] [address]Dr. Garima Pulliam Monocytes/100 WBC (Bld) 8.0 % Normal 1.7-12.0 [facility] Comment on above: Performed By: #### C BC ####[facility] S[address]hnohgmkg[address] [place], [place] [address]Dr. Garima Pulliam NEUT # 5.1 103/ul Normal 1.4-6.5 [facility] Comment on above: Performed By: #### C BC ####[facility] [address]seigs[address] [place], [place] [address]Mg. Garima Pulliam Neutrophils/100 WBC (Bld) 62.8 % Normal 43.0-75.0 [facility] Comment on above: Performed By: #### C BC ####[facility] Ftxkysbwqe6954 [place], [place] [address]Gj. Garima Pulliam Platelet mean volume (Bld) [Entitic vol] 8.6 fL Critically low 9.5-13.5 [facility] Comment on above: Performed By: #### C BC ####[facility] Nwevntujhw23[address] [place] [phone]. Garima Pulliam PLT 200 103/ul Normal 150-450 [facility] Comment on above: Performed By: #### C BC ####[facility] Gpogihpgwo4182 [place] [phone]. Garima Pulliam RBC 4.69 106/ul Critically low 4.70-6.10 [facility] Comment on above: Performed By: #### C BC ####[facility] Hrgphiwdbr5436 [place], [place] [address]Ia. Garima Pulliam WBC 8.2 103/ul Normal 4.0-11.0 [facility] Comment on above: Performed By: #### C BC ####[facility] Khnfodopvt5740 [place], [place] [address]Zt. Garima Pulliam Covid-[facility] PCR ([facility]on SARS-CoV-2 (COVID-19) RNA MARIE+probe Ql (Unsp spec) Not detected Normal NOT DETECTED [facility] Comment on above: Result Comment: When diagnostic [...] for this test is supported by the [place] Supervisor of Health and Human Service's declaration [...] be used). Performed By: #### C VDTBH ####[facility] [address]gonlsnmia[address] [place], [place] [address]Dr. Garima Pulliam INFLUENZA A AND B AGon 12-25 INFLUANEGH SEE BELOW Normal [facility] Comment on above: Result Comment: Nega tive for Flu A protein angiten. Infection due to Flu A cannot be ruled out. Flu A angiten in the sample may be below the detection limit of the test. Performed By: #### I NFLUAB ####[facility] [address]impm[address]og[address] [place] [address]Dr. Garima Pulliam INFLUBNEGH SEE BELOW Normal [facility] Comment on above: Result Comment: Nega tive for Flu B protein antigen. Infection due to Flu B cannot be ruled out. Flu B antigen in the sample may be below the detection limit of the test. Performed By: #### I NFLUAB ####[facility] [address]vrh[address]ju[address] [place], [place] [address]Dr. Garima Pulliam INFLUENZA A AG Negative Normal NEGATIVE SEE COMMENT [facility] Comment on above: Performed By: #### I NFLUAB ####[facility] Dpqcmewynx[address] [place], [place] [address]Dr. renu [facility] INFLUENZA B AG Negative Normal NEGATIVE SEE COMMENT [facility] Comment on above: Performed By: #### I NFLUAB ####[facility] Ejeqfrgifd[address] [place], [place] [address]Dr. Garima Pulliam PROF CHEM 8 (BAS METB)on Anion gap [Moles/Vol] 11.1 mmol/L Normal Th [facility] Comment on above: Performed By: #### B BATTERY CONTAINER TESTER, BMP, CMADM ####[facility] Yvutwzgzex[address] [place], [place] [address]Dr. Garima Pulliam Calcium [Mass/Vol] 8.5 mg/dL Normal 8.5-10.1 The [facility] Comment on above: Performed By: #### B BATTERY CONTAINER TESTER, MARVIN, CMADM ####[facility] [address]rh[address]ub[address] [place] [id number]. Garima Pulliam Chloride [Moles/Vol] 106 mmol/L Normal 98-107 [facility] Comment on above: Performed By: #### B BATTERY CONTAINER TESTER, BMP, CMADM ####[facility] [address]ukmgzfbj[address] [place] [address]Dr. Garima Pulliam CO2 [Moles/Vol] 27.4 mmol/L Normal 21.0-32.0 The [facility] Comment on above: Performed By: #### B BATTERY CONTAINER TESTER, MARVIN, CMADM ####[facility] Xrcjdjjqhs[address] [place] [address]Dr. Garima Pulliam Creatinine [Mass/Vol] 0.65 mg/dL Critically low 0.70-1.30 [facility] Comment on above: Performed By: #### B BATTERY CONTAINER TESTER, MARVIN, CMADM ####[facility] [address]vibcfhlxd[address] [place] [address]Dr. Garima Pulliam EGFR-AF CITIZEN [place] >60 Normal >=60 [facility] Comment on above: Performed By: #### B BATTERY CONTAINER TESTER, BMP, CMADM ####[facility] Vnsadwdxwm[address] [place] [address]Dr. Garima Pulliam EGFR-NON AF CITIZEN OF [place] >60 Normal >=60 [facility] Comment on above: Performed By: #### B BATTERY CONTAINER TESTER, BMP, CMADM ####[facility] Ijkskpnqcy[address] [place] [address]Dr. Garima Pulliam Glucose [Mass/Vol] 140 mg/dL Critically high 74-106 [facility] Comment on above: Performed By: #### B BATTERY CONTAINER TESTER, BMP, CMADM ####[facility] Bfykrjrfnd48[address] [place] [address]Dr. Garima Pulliam Potassium [Moles/Vol] 3.5 mmol/L Normal 3.5-5.1 [facility] Comment on above: Performed By: #### B BATTERY CONTAINER TESTER, BMP, CMADM ####[facility] Fujfulfrtf9217 [place] [address]Dr. Garima Pulliam Sodium [Moles/Vol] 141 mmol/L Normal 136-145 [facility] Comment on above: Performed By: #### B BATTERY CONTAINER TESTER, BMP, CMADM ####[facility] Qxjiqmjnnm47[address] [place] [address]Dr. Garima Pulliam Urea nitrogen [Mass/Vol] 8.0 mg/dL Normal 7.0-18.0 [facility] Comment on above: Performed By: #### B BATTERY CONTAINER TESTER, BMP, CMADM ####[facility] [address]kvtbegjfg12[address] [place] [address]Dr. Garima Pulliam Urea nitrogen/Creatinine [Mass ratio] 12.3 mg/mg Normal [facility] Comment on above: Performed By: #### B BATTERY CONTAINER TESTER, BMP, CMADM ####[facility] [address]ixkvsvhvz[address] [place], [place] [address]Dr. Garima Pulliam CARDIAC NAHS ADMITon 023 CK [Catalytic activity/Vol] 165 U/L Normal 39-308 [facility] Comment on above: Performed By: #### B DAVID, CMADM ####[facility] Kawxfidsru[address] [place], [place] [address]Dr. Garima Pulliam CK.MB [Mass/Vol] 6.48 ng/mL Critically high <=3.60 [facility] Comment on above: Performed By: #### B MP, CMADM ####[facility] Wadwfprtlu60[address] [place], [place] [address]Dr. Garima Pulliam HSTROP 11.7 pg/mL Normal 4.0-76.1 [facility] Comment on above: Result Comment: CUT- OFF POINTS HAVE BEEN ESTABLISHED BASED ON THE FOURTH UNIVERSAL DEFINITIONS OF MYOCARDIALINFARCTION. THE UPPER REFERENCE LIMIT (URL) OF TROPONIN, DEFINED THE 99TH PERCENTILE OFcTnI DISTRIBUTION IN A REFERENCE POPULATION, HAS BEEN CONFIRMED THE DECISION THRESHOLDFOR [place] DIAGNOSIS. Performed By: #### B MP, CMADM ####[facility] Hkhabaqlsm[address] [place], [place] [address]Dr. Garima Pulliam DORIS 83 ng/mL Normal 16-96 [facility] Comment on above: Performed By: #### B MP, CMADM ####[facility] Syfysasgzp[address] [place] [address]Dr. Garima Pulliam CBC AUTO DIFFon 12-10-2022 BASO # 0.0 103/ul Normal 0.0-0.1 [facility] Comment on above: Performed By: #### C BC ####[facility] Asfoccyyux43[address] [place], [place] [address]Dr. Garima Heraclio Basophils/100 WBC (Bld) 0.3 % Normal 0.2-2.0 [facility] Comment on above: Performed By: #### C BC ####[facility] Zqprajavrj[address] [place], [place] [address]Dr. Garima Pulliam EO # 0.1 103/ul Normal 0.0-0.7 [facility] Comment on above: Performed By: #### C BC ####[facility] Abfkiiseyx[address] [place], [place] [address]Dr. Garima Pulliam Eosinophils/100 WBC (Bld) 0.4 % Critically low 0.9-7.0 [facility] Comment on above: Performed By: #### C BC ####[facility] Mbqrardytx35[address] [place], [place] [address]Dr. Garima Pulliam Erythrocyte distribution width (RBC) [Ratio] 13.2 % Normal 11.0-15.0 [facility] Comment on above: Performed By: #### C BC ####[facility] Wmlxonszjw[address] [place], [place] [address]Dr. Garima Pulliam Hematocrit (Bld) [Volume fraction] 42.4 % Normal 42.0-54.0 [facility] Comment on above: Performed By: #### C BC ####[facility] Iqgpdcfcvq[address] [place], [place] [address]Dr. Garima Pulliam Hemoglobin (Bld) [Mass/Vol] 14.4 g/dL Normal 14.0-18.0 [facility] Comment on above: Performed By: #### C BC ####[facility] Exrezfovgn[address] [place] [id number]. Garima Heraclio IG # 0.05 10e3/ul Critically high 0.00-0.03 The [facility] Comment on above: Performed By: #### C BC ####[facility] Migxtcpzfc3614 [place] [address]Dr. Garima Heraclio IG % 0.4 % Normal 0.0-0.5 [facility] Comment on above: Performed By: #### C BC ####[facility] Utuqdnifgx[address] [place], [place] [address]Dr. Garima Pulliam LYMPH # 0.8 103/ul Critically low 1.2-3.8 The [facility] Comment on above: Performed By: #### C BC ####[facility] Ymblvncmfi539[address] [place], [place] [address]Dr. Chapisrenu Pulliam Lymphocytes/100 WBC (Bld) 6.5 % Critically low 20.5-60.0 [facility] Comment on above: Performed By: #### C BC ####[facility] Jonkjuxote[address] [place], [place] [address]Dr. Chapisrenu Pulliam MANUAL DIFF REQ NO Normal [facility] Comment on above: Performed By: #### C BC ####[facility] Szyzuayaxa[address] [place], [place] [address]DrAdalberto Garima Pulliam MCH (RBC) [Entitic mass] 30.5 pg Normal 25.9-34.0 [facility] Comment on above: Performed By: #### C BC ####[facility] Macthxrrnk[address] [place], [place] [address]DrAdalberto Garima Heraclio MCHC (RBC) [Mass/Vol] 34.0 g/dL Normal 29.9-35.2 [facility] Comment on above: Performed By: #### C BC ####[facility] [address]uf[address] [place], [place] [address]DrAdalberto Garima Heraclio MCV (RBC) [Entitic vol] 89.8 fL Normal 80.0-94.0 [facility] Comment on above: Performed By: #### C BC ####[facility] Kaqzaywdes[address] [place], [place] [address]Dr. Garima Pulliam MONO # 0.2 103/ul Critically low 0.3-0.8 The [facility] Comment on above: Performed By: #### C BC ####[facility] Ggqlmyhrko35[address] [place] [phone]. Garima Pulliam Monocytes/100 WBC (Bld) 2.0 % Normal 1.7-12.0 [facility] Comment on above: Performed By: #### C BC ####[facility] Otnqvrbdoc6[address] [place] [address]Dr. Chapisrenu Heraclio NEUT # 10.5 103/ul Critically high 1.4-6.5 The [facility] Comment on above: Performed By: #### C BC ####[facility] Lhfpxvsbyk3925 [place] [address]Dr. Garima Pulliam Neutrophils/100 WBC (Bld) 90.4 % Critically high 43.0-75.0 [facility] Comment on above: Performed By: #### C BC ####[facility] Uplloeshoj24[address] [place] [address]Dr. Garima Pulliam Platelet mean volume (Bld) [Entitic vol] 9.4 fL Critically low 9.5-13.5 [facility] Comment on above: Performed By: #### C BC ####[facility] [address]ceytkazc[address] [place] [address]Dr. Garima Pulliam PLT 198 103/ul Normal 150-450 [facility] Comment on above: Performed By: #### C BC ####[facility] Ufpznvltys3422 [place] [address]Dr. Garima Pulliam RBC 4.72 106/ul Normal 4.70-6.10 [facility] Comment on above: Performed By: #### C BC ####[facility] Xadsxiibye7864 [place] [phone]. Garima Pulliam WBC 11.6 103/ul Critically high 4.0-11.0 [facility] Comment on above: Performed By: #### C BC ####[facility] Ofjedkmggp2642 [place] [address]DrAdalberto Pulliam PROF CHEM 8 (BAS METB)on Anion gap [Moles/Vol] 11.3 mmol/L Normal Th [facility] Comment on above: Performed By: #### B NANCY HERNANDEZ ####[facility] Z[address]vzwugsa13[address] [place] [address]Dr. Garima Pulliam Calcium [Mass/Vol] 8.9 mg/dL Normal 8.5-10.1 [facility] Comment on above: Performed By: #### B NANCY HERNANDEZ ####[facility] Yrdgeundvx9[address] [place] [address]Dr. Garima Pulliam Chloride [Moles/Vol] 103 mmol/L Normal 98-107 [facility] Comment on above: Performed By: #### B NANCY HERNANDEZ ####[facility] Pvrchqyckp[address] [place], [place] [address]Dr. Garima Pulliam CO2 [Moles/Vol] 28.2 mmol/L Normal 21.0-32.0 [facility] Comment on above: Performed By: #### NANCY Larkin MP ####[facility] Iydooarimf75[address] [place] [address]Dr. Chapisrenu Pulliam Creatinine [Mass/Vol] 0.60 mg/dL Critically low 0.70-1.30 [facility] Comment on above: Performed By: #### NANCY Larkin MP ####[facility] Wtkwxuzsgs29[address] [place] [address]Dr. Garima Pulliam EGFR-AF CITIZEN [place] >60 Normal >=60 [facility] Comment on above: Performed By: #### NANCY Larkin MP ####[facility] Clwplwssfy8[address] [place] [address]Dr. Garima Pulliam EGFR-NON AF CITIZEN OF [place] >60 Normal >=60 [facility] Comment on above: Performed By: #### NANCY Larkin MP ####[facility] [address]offyntxwk[address] [place], [place] [address]Dr. Garima Pulliam Glucose [Mass/Vol] 166 mg/dL Critically high 74-106 [facility] Comment on above: Performed By: #### B MP, CMADM ####[facility] Pyadpuashi8733 [place] [address]Dr. Garima Pulliam Potassium [Moles/Vol] 3.5 mmol/L Normal 3.5-5.1 [facility] Comment on above: Performed By: #### B MP, CMADM ####[facility] Jaqqqgpnag022[address] [place] [address]Dr. Garima Pulliam Sodium [Moles/Vol] 139 mmol/L Normal 136-145 The [facility] Comment on above: Performed By: #### B DAVID, CMADM ####[facility] Lggsnzsnnh4678 [place] [address]Dr. Garima Heraclio Urea nitrogen [Mass/Vol] 9.0 mg/dL Normal 7.0-18.0 [facility] Comment on above: Performed By: #### B DAVID, NANCY ####[facility] Bbwnfiuvnw[address] [place], [place] [address]Dr. Garima Heraclio Urea nitrogen/Creatinine [Mass ratio] 15.0 mg/mg Normal [facility] Comment on above: Performed By: #### B DAVID, CMAANA ROSA ####[facility] S[address]atrwrll[address] [place], [place] [address]Dr. Garima Pulliam XR CHEST 1 Von 12-10-2022 XR CHEST 1 V Normal [facility] BNPon 11-27-2022 Natriuretic peptide B (Bld) [Mass/Vol] 95.0 pg/mL Normal <=900.0 [facility] Comment on above: Performed By: #### C MP, HSTROPN, BNP ####[facility] [address]qabfshkj[address] [place], [place] [address]Dr. Garima Heraclio CBC AUTO DIFFon 11-27-2022 BASO # 0.0 103/ul Normal 0.0-0.1 [facility] Comment on above: Performed By: #### C BC ####[facility] Lbblaxvyye[address] [place], [place] [address]Dr. Garima Heraclio Basophils/100 WBC (Bld) 0.2 % Normal 0.2-2.0 [facility] Comment on above: Performed By: #### C BC ####[facility] Jtvbsbiggc2393 [place] [phone]. Garima Pulliam EO # 0.2 103/ul Normal 0.0-0.7 [facility] Comment on above: Performed By: #### C BC ####[facility] Vuptkaeatf8661 [place] [phone]. Garima Pulliam Eosinophils/100 WBC (Bld) 2.0 % Normal 0.9-7.0 [facility] Comment on above: Performed By: #### C BC ####[facility] Gixfyobibt[address] [place], [place] [address]Dr. Garima Pulliam Erythrocyte distribution width (RBC) [Ratio] 13.2 % Normal 11.0-15.0 [facility] Comment on above: Performed By: #### C BC ####[facility] Ecurljcxqq40[address] [place], [place] [address]Dr. Garima Pulliam Hematocrit (Bld) [Volume fraction] 42.4 % Normal 42.0-54.0 [facility] Comment on above: Performed By: #### C BC ####[facility] Kulbvlsgpa[address] [place], [place] [address]Dr. Garima Pulliam Hemoglobin (Bld) [Mass/Vol] 14.4 g/dL Normal 14.0-18.0 [facility] Comment on above: Performed By: #### C BC ####[facility] Spipcavlvu[address] [place], [place] [address]Dr. Garima Pulliam IG # 0.04 10e3/ul Critically high 0.00-0.03 The [facility] Comment on above: Performed By: #### C BC ####[facility] Uskexkdmwn[address] [place], [place] [address]Dr. Garima Pulliam IG % 0.4 % Normal 0.0-0.5 [facility] Comment on above: Performed By: #### C BC ####[facility] Krmyrgtsae[address] [place], [place] [address]Dr. Garima Pulliam LYMPH # 2.2 103/ul Normal 1.2-3.8 [facility] Comment on above: Performed By: #### C BC ####[facility] Pjllxzyhsm80[address] [place] [phone]. Garima Pulliam Lymphocytes/100 WBC (Bld) 21.5 % Normal 20.5-60.0 [facility] Comment on above: Performed By: #### C BC ####[facility] Vxrnncmbxf[address] [place] [phone]. Garima Heraclio MANUAL DIFF REQ NO Normal [facility] Comment on above: Performed By: #### C BC ####[facility] Vfklxgmzuq9601 [place] [phone]. Garima Heraclio MCH (RBC) [Entitic mass] 30.4 pg Normal 25.9-34.0 [facility] Comment on above: Performed By: #### C BC ####[facility] Bl[address]rtjvmn5[address] [place] [address]Dr. Garima Heraclio MCHC (RBC) [Mass/Vol] 34.0 g/dL Normal 29.9-35.2 [facility] Comment on above: Performed By: #### C BC ####[facility] Snvebyiqzx0452 [place] [phone]. Garima Pulliam MCV (RBC) [Entitic vol] 89.6 fL Normal 80.0-94.0 [facility] Comment on above: Performed By: #### C BC ####[facility] Ehldgdgaol2520 [place] [phone]. Garima Pulliam MONO # 0.8 103/ul Normal 0.3-0.8 [facility] Comment on above: Performed By: #### C BC ####[facility] Zjecfllczg1566 [place] [phone]. Chapisrenu Pulliam Monocytes/100 WBC (Bld) 7.7 % Normal 1.7-12.0 [facility] Comment on above: Performed By: #### C BC ####[facility] Gcnrucnylb[address] [place], [place] [address]Dr. Garima Pulliam NEUT # 7.0 103/ul Critically high 1.4-6.5 [facility] Comment on above: Performed By: #### C BC ####[facility] Vdldqmcvtd5898 [place] [phone]. Garima Pulliam Neutrophils/100 WBC (Bld) 68.2 % Normal 43.0-75.0 [facility] Comment on above: Performed By: #### C BC ####[facility] Tsuiolhcqp0169 [place] [phone]. Chapisrenu Pulliam Platelet mean volume (Bld) [Entitic vol] 8.9 fL Critically low 9.5-13.5 [facility] Comment on above: Performed By: #### C BC ####[facility] Fnsngytqhe5[address] [place] [address]Dr. Garima Pulliam PLT 222 103/ul Normal 150-450 [facility] Comment on above: Performed By: #### C BC ####[facility] Elbhircthi1522 [place] [address]Dr. Garima Pulliam RBC 4.73 106/ul Normal 4.70-6.10 [facility] Comment on above: Performed By: #### C BC ####[facility] Ynjlhuxqga9424 [place] [address]Dr. Garima Pulliam WBC 10.3 103/ul Normal 4.0-11.0 [facility] Comment on above: Performed By: #### C BC ####[facility] Mbfavmijob8119 [place] [address]Dr. Garima Pulliam PROF 14(COMP METB)on 023 Albumin [Mass/Vol] 3.7 g/dL Normal 3.4-5.0 [facility] Comment on above: Performed By: #### C MP, HSTROPN, BNP ####[facility] Ksucalrrhc7961 [place] [address]Dr. Chapisrenu Pulliam Albumin/Globulin [Mass ratio] 1.5 {ratio} Normal [facility] Comment on above: Performed By: #### C MP, HSTROPN, BNP ####[facility] Bsacxwwzvc5220 [place] [address]Dr. Garima Pulliam ALP [Catalytic activity/Vol] 79 U/L Normal 46-116 [facility] Comment on above: Performed By: #### C MP, HSTROPN, BNP ####[facility] Mixilrcwkv9056 [place] [address]Dr. Garima Pulliam ALT [Catalytic activity/Vol] 32 U/L Normal 16-63 [facility] Comment on above: Performed By: #### C MP, HSTROPN, BNP ####[facility] Gkervwozsa9496 [place] [address]Dr. Garima Pulliam Anion gap [Moles/Vol] 9.5 mmol/L Normal [facility] Comment on above: Performed By: #### C MP, HSTROPN, BNP ####[facility] Xudjyjalqt[address] [place], [place] [address]Dr. Garima Pulliam AST [Catalytic activity/Vol] 25 U/L Normal 15-37 [facility] Comment on above: Performed By: #### C MP, HSTROPN, BNP ####[facility] Qlyjlmphel[address] [place], [place] [address]Dr. Chapislan Pulliam Bilirubin [Mass/Vol] 0.4 mg/dL Normal 0.2-1.0 [facility] Comment on above: Performed By: #### C MP, HSTROPN, BNP ####[facility] Weavjrnfks[address] [place], [place] [address]Dr. Garima Pulliam Calcium [Mass/Vol] 8.9 mg/dL Normal 8.5-10.1 [facility] Comment on above: Performed By: #### C MP, HSTROPN, BNP ####[facility] F[address]mptwuzqc[address] [place], [place] [address]Dr. Chapislan Pulliam Chloride [Moles/Vol] 103 mmol/L Normal 98-107 [facility] Comment on above: Performed By: #### C MP, HSTROPN, BNP ####[facility] Crqlnmnqvh[address] [place], [place] [address]Dr. Yilan Pulliam CO2 [Moles/Vol] 28.6 mmol/L Normal 21.0-32.0 [facility] Comment on above: Performed By: #### C MP, HSTROPN, BNP ####[facility] Ewslomgxjl5010 [place] [address]Dr. Garima Pulliam Creatinine [Mass/Vol] 0.72 mg/dL Normal 0.70-1.30 [facility] Comment on above: Performed By: #### C MP, HSTROPN, BNP ####[facility] Svkwstzzws119[address] [place] [address]Dr. Garima Pulliam EGFR-AF CITIZ[place] >60 Normal >=60 [facility] Comment on above: Performed By: #### C MP, HSTROPN, BNP ####[facility] Burdxssdzv220[address] [place] [address]Dr. Garima Pulliam EGFR-NON AF CITIZEN OF [place] >60 Normal >=60 [facility] Comment on above: Performed By: #### C MP, HSTROPN, BNP ####[facility] Zhbajibbgm1189 [place] [address]Dr. Garima Pulliam Globulin (S) [Mass/Vol] 2.5 g/dL Normal [facility] Comment on above: Performed By: #### C MP, HSTROPN, BNP ####[facility] Juurtwswvw[address] [place], [place] [address]Dr. Garima Pulliam Glucose [Mass/Vol] 114 mg/dL Critically high 74-106 [facility] Comment on above: Performed By: #### C MP, HSTROPN, BNP ####[facility] Hqlvstzydn[address] [place], [place] [address]Dr. Garmia Pulliam Potassium [Moles/Vol] 4.1 mmol/L Normal 3.5-5.1 [facility] Comment on above: Performed By: #### C MP, HSTROPN, BNP ####[facility] Gxumyiixpa[address] [place], [place] [address]Dr. Garima Pulliam Protein [Mass/Vol] 6.2 g/dL Critically low 6.4-8.2 Th [facility] Comment on above: Performed By: #### C MP, HSTROPN, BNP ####[facility] Wginnybdlm348[address] [place], [place] [address]Dr. Yilan Pulliam Sodium [Moles/Vol] 137 mmol/L Normal 136-145 The [facility] Comment on above: Performed By: #### C MP, HSTROPN, BNP ####[facility] Luypnmxgaj3460 [place] [address]Dr. Garima Pulliam Urea nitrogen [Mass/Vol] 13.0 mg/dL Normal 7.0-18.0 [facility] Comment on above: Performed By: #### C MP, HSTROPN, BNP ####[facility] Fpwtbxhqpy5454 [place] [address]Dr. Garima Pulliam Urea nitrogen/Creatinine [Mass ratio] 18.1 mg/mg Normal [facility] Comment on above: Performed By: #### C MP, HSTROPN, BNP ####[facility] Fgqpxkcclb[address] [place], [place] [address]Dr. Garima Pulliam TROPONIN, HIGH SENSITIVITYon 11-27-2022 HSTROP 11.8 pg/mL Normal 4.0-76.1 [facility] Comment on above: Result Comment: CUT- OFF POINTS HAVE BEEN ESTABLISHED BASED ON THE FOURTH UNIVERSAL DEFINITIONS OF MYOCARDIALINFARCTION. THE UPPER REFERENCE LIMIT (URL) OF TROPONIN, DEFINED THE 99TH PERCENTILE OFcTnI DISTRIBUTION IN A REFERENCE POPULATION, HAS BEEN CONFIRMED THE DECISION THRESHOLDFOR [place] DIAGNOSIS. Performed By: #### C MP, HSTROPN, BNP ####[facility] Owgcvcujge[address] [place], [place] [address]Dr. Garima Pulliam XR CHEST 1 Von 11-27-2022 XR CHEST 1 V Normal [facility] BNPon 11-20-2022 Natriuretic peptide B (Bld) [Mass/Vol] 73.0 pg/mL Normal <=900.0 [facility] Comment on above: Performed By: #### B MP, HSTROPN, BNP ####[facility] Mykhoqvgez[address] [place], [place] [address]Dr. Garima Pulliam CBC AUTO DIFFon 11-20-2022 BASO # 0.0 103/ul Normal 0.0-0.1 [facility] Comment on above: Performed By: #### C BC ####[facility] [address]cihckjr[address] [place] [id number]. Garima Pulliam Basophils/100 WBC (Bld) 0.3 % Normal 0.2-2.0 [facility] Comment on above: Performed By: #### C BC ####[facility] Eppsyxymfa4429 [place] [id number]. Garima Pulliam EO # 0.2 103/ul Normal 0.0-0.7 [facility] Comment on above: Performed By: #### C BC ####[facility] Brmvoprpua4650 [place] [address]Dr. Garima Pulliam Eosinophils/100 WBC (Bld) 2.1 % Normal 0.9-7.0 [facility] Comment on above: Performed By: #### C BC ####[facility] Skqjdazzzk[address] [place], [place] [address]Dr. Garima Pulliam Erythrocyte distribution width (RBC) [Ratio] 13.2 % Normal 11.0-15.0 [facility] Comment on above: Performed By: #### C BC ####[facility] Kfibvcsdcu[address] [place], [place] [address]Dr. Garima Pulliam Hematocrit (Bld) [Volume fraction] 43.4 % Normal 42.0-54.0 [facility] Comment on above: Performed By: #### C BC ####[facility] Qxnioiaodi8[address] [place], [place] [id number]. Garima Pulliam Hemoglobin (Bld) [Mass/Vol] 14.6 g/dL Normal 14.0-18.0 [facility] Comment on above: Performed By: #### C BC ####[facility] [address]ijmos[address] [place] [id number]. Garima Pulliam IG # 0.02 10e3/ul Normal 0.00-0.03 [facility] Comment on above: Performed By: #### C BC ####[facility] Jsmbbljigu3899 [place] [address]Dr. Garima Pulliam IG % 0.2 % Normal 0.0-0.5 [facility] Comment on above: Performed By: #### C BC ####[facility] Rzbchvgxxu4968 [place] [id number]. Garima Heraclio LYMPH # 2.1 103/ul Normal 1.2-3.8 [facility] Comment on above: Performed By: #### C BC ####[facility] Bzbngdnvcf3319 [place] [id number]. Garima Heraclio Lymphocytes/100 WBC (Bld) 19.2 % Critically low 20.5-60.0 [facility] Comment on above: Performed By: #### C BC ####[facility] Xqgczauhkx1368 [place] [id number]. Chapisrenu Pulliam MANUAL DIFF REQ NO Normal [facility] Comment on above: Performed By: #### C BC ####[facility] Nvyfcrkkau1283 [place] [phone]. Garima Heraclio MCH (RBC) [Entitic mass] 30.4 pg Normal 25.9-34.0 [facility] Comment on above: Performed By: #### C BC ####[facility] Izttndfqjg8613 [place] [address]Dr. Garima Pulliam MCHC (RBC) [Mass/Vol] 33.6 g/dL Normal 29.9-35.2 [facility] Comment on above: Performed By: #### C BC ####[facility] Xdscvzjwgi1826 [place] [phone]. Garima Heraclio MCV (RBC) [Entitic vol] 90.4 fL Normal 80.0-94.0 [facility] Comment on above: Performed By: #### C BC ####[facility] Sfjhpxzhfe8240 [place] [phone]. Garima Heraclio MONO # 0.6 103/ul Normal 0.3-0.8 [facility] Comment on above: Performed By: #### C BC ####[facility] Gzzssflujt5478 [place] [address]Dr. Garima Heraclio Monocytes/100 WBC (Bld) 5.8 % Normal 1.7-12.0 [facility] Comment on above: Performed By: #### C BC ####[facility] [address]ufsuf[address] [place], [place] [address]Cq. Garima Pulliam NEUT # 7.8 103/ul Critically high 1.4-6.5 [facility] Comment on above: Performed By: #### C BC ####[facility] Ohvupeaqdk4780 [place] [phone]. Garima Pulliam Neutrophils/100 WBC (Bld) 72.4 % Normal 43.0-75.0 [facility] Comment on above: Performed By: #### C BC ####[facility] Eohnambejn3688 [place] [phone]. Garima Pulliam Platelet mean volume (Bld) [Entitic vol] 8.7 fL Critically low 9.5-13.5 [facility] Comment on above: Performed By: #### C BC ####[facility] Ihdjtubgig8211 [place] [phone]. Garima Pulliam PLT 184 103/ul Normal 150-450 [facility] Comment on above: Performed By: #### C BC ####[facility] Tsqktwjrpo0234 [place], [place] [address]Rt. Garima Pulliam RBC 4.80 106/ul Normal 4.70-6.10 [facility] Comment on above: Performed By: #### C BC ####[facility] Cxvsikndmn8213 [place] [phone]. Garima Pulliam WBC 10.8 103/ul Normal 4.0-11.0 [facility] Comment on above: Performed By: #### C BC ####[facility] Wgacqchxbi7078 [place] [phone]. Garima Pulliam Cov[facility] ([facility]-24 SARS-CoV-2 (COVID-19) RNA MARIE+probe Ql (Unsp spec) Not detected Normal NOT DETECTED [facility] Comment on above: Result Comment: When diagnostic [...] for this test is supported by the [place] Supervisor of Health and Human Service's declaration [...] be used). Performed By: #### C VDTBH ####[facility] Pmlhgadlrk[address] [place], [place] [address]Dr. Garima Pulliam INFLUENZA A AND B AGon 11-20 INFLUSIERRA [place] SEE BELOW Normal [facility] Comment on above: Result Comment: Nega tive for Flu A protein angiten. Infection due to Flu A cannot be ruled out. Flu A angiten in the sample may be below the detection limit of the test. Performed By: #### I NFLUAB ####[facility] Qtwilaooav[address] [place], [place] [address]Dr. Garima Pulliam INFLUBNEGH SEE BELOW Normal [facility] Comment on above: Result Comment: Nega tive for Flu B protein antigen. Infection due to Flu B cannot be ruled out. Flu B antigen in the sample may be below the detection limit of the test. Performed By: #### I NFLUAB ####[facility] Mdfznasbzc[address] [place], [place] [address]Dr. Garima Pulliam INFLUENZA A AG Negative Normal NEGATIVE SEE COMMENT [facility] Comment on above: Performed By: #### I NFLUAB ####[facility] Zobuxthjat[address] [place], [place] [address]Dr. Garima [facility] INFLUENZA B AG Negative Normal NEGATIVE SEE COMMENT [facility] Comment on above: Performed By: #### I NFLUAB ####[facility] Dojqukmwkp[address] [place], [place] [address]Dr. Garmia Pulliam PROF CHEM 8 (BAS METB)on Anion gap [Moles/Vol] 8.2 mmol/L Normal [facility] Comment on above: Performed By: #### B MP, HSTROPN, BNP ####[facility] Dtemfbfmjk5916 [place] [address]Dr. Garima Pulliam Calcium [Mass/Vol] 8.7 mg/dL Normal 8.5-10.1 [facility] Comment on above: Performed By: #### B MP, HSTROPN, BNP ####[facility] Euzuuncyfk2506 [place] [address]Dr. Garima Pulliam Chloride [Moles/Vol] 103 mmol/L Normal 98-107 [facility] Comment on above: Performed By: #### B MP, HSTROPN, BNP ####[facility] Xmauysatbj[address] [place], [place] [address]Dr. Garima Pulliam CO2 [Moles/Vol] 29.4 mmol/L Normal 21.0-32.0 [facility] Comment on above: Performed By: #### B MP, HSTROPN, BNP ####[facility] Yzdsfzzask[address] [place], [place] [address]Dr. Garima Pulliam Creatinine [Mass/Vol] 0.69 mg/dL Critically low 0.70-1.30 [facility] Comment on above: Performed By: #### B MP, HSTROPN, BNP ####[facility] Rczrarfymp[address] [place] [address]Dr. Garima Pulliam EGFR-AF CITIZEN [place] >60 Normal >=60 [facility] Comment on above: Performed By: #### B MP, HSTROPN, BNP ####[facility] Bbcbjlvfcy[address] [place], [place] [address]Dr. Garima Pulliam EGFR-NON AF CITIZEN OF [place] >60 Normal >=60 [facility] Comment on above: Performed By: #### B MP, HSTROPN, BNP ####[facility] Ovbpiyvigp9425 [place] [address]Dr. Garima Pulliam Glucose [Mass/Vol] 209 mg/dL Critically high 74-106 [facility] Comment on above: Performed By: #### B MP, HSTROPN, BNP ####[facility] Uxqgjjmbhg7455 [place] [address]Dr. Garima Pulliam Potassium [Moles/Vol] 3.6 mmol/L Normal 3.5-5.1 [facility] Comment on above: Performed By: #### B MP, HSTROPN, BNP ####[facility] Fcixuusktu0033 [place] [address]Dr. Garima Pulliam Sodium [Moles/Vol] 137 mmol/L Normal 136-145 The [facility] [place] Comment on above: Performed By: #### B MP, HSTROPN, BNP ####[facility] Dewiniwtou4867 [place] [address]Dr. Garima Pulliam Urea nitrogen [Mass/Vol] 11.0 mg/dL Normal 7.0-18.0 [facility] Comment on above: Performed By: #### B MP, HSTROPN, BNP ####[facility] Eiutpfdyws2669 [place] [address]Dr. Garima Pulliam Urea nitrogen/Creatinine [Mass ratio] 15.9 mg/mg Normal [facility] Comment on above: Performed By: #### B MP, HSTROPN, BNP ####[facility] Wkzfzberjw4970 [place] [address]Dr. Garima Pulliam TROPONIN, HIGH SENSITIVITYon 11-20-2022 HSTROP 8.7 pg/mL Normal 4.0-76.1 [facility] Comment on above: Result Comment: CUT- OFF POINTS HAVE BEEN ESTABLISHED BASED ON THE FOURTH UNIVERSAL DEFINITIONS OF MYOCARDIALINFARCTION. THE UPPER REFERENCE LIMIT (URL) OF TROPONIN, DEFINED THE 99TH PERCENTILE OFcTnI DISTRIBUTION IN A REFERENCE POPULATION, HAS BEEN CONFIRMED THE DECISION THRESHOLDFOR [place] DIAGNOSIS. Performed By: #### B MP, HSTROPN, BNP ####[facility] Vadlcegulc4916 [place] [address]Dr. Garima Pulliam XR CHEST 1 Von 11-20-2022 XR CHEST 1 V Normal [facility] XR CHEST 1 Von 10-02-2022 XR CHEST 1 V Normal [facility] BNPon 09-29-2022 Natriuretic peptide B (Bld) [Mass/Vol] 107.0 pg/mL Normal <=900.0 [facility] Comment on above: Performed By: #### C MP, BNP, CMADM ####[facility] Zezecdzkpa[address] [place] [address]Dr. Garima Pulliam CARDIAC NASH ADMITon 022 CK [Catalytic activity/Vol] 190 U/L Normal 39-308 [facility] Comment on above: Performed By: #### C MP, BNP, CMADM ####[facility] Zuggmidxsn3269 [place] [address]Dr. Garima Heraclio CK.MB [Mass/Vol] 11.11 ng/mL Critically high <=3.60 [facility] Comment on above: Performed By: #### C MP, BNP, CMADM ####[facility] Qsbtoliocf3939 [place] [address]Dr. Garima Pulliam HSTROP 11.8 pg/mL Normal 4.0-76.1 [facility] Comment on above: Result Comment: CUT- OFF POINTS HAVE BEEN ESTABLISHED BASED ON THE FOURTH UNIVERSAL DEFINITIONS OF MYOCARDIALINFARCTION. THE UPPER REFERENCE LIMIT (URL) OF TROPONIN, DEFINED THE 99TH PERCENTILE OFcTnI DISTRIBUTION IN A REFERENCE POPULATION, HAS BEEN CONFIRMED THE DECISION THRESHOLDFOR [place] DIAGNOSIS. Performed By: #### C MP, BNP, CMADM ####[facility] Hwtvvfwyul1144 [place] [address]Dr. Garima Pulliam DORIS 133 ng/mL Critically high 16-96 [facility] Comment on above: Performed By: #### C MP, BNP, CMADM ####[facility] Ysnjgbtudf5928 [place] [address]Dr. Garima Heraclio CBC AUTO DIFFon 09-29-2022 BASO # 0.0 103/ul Normal 0.0-0.1 [facility] Comment on above: Performed By: #### C BC ####[facility] Xyfbnuzwzo0841 [place] [address]Dr. Garima Heraclio Basophils/100 WBC (Bld) 0.2 % Normal 0.2-2.0 [facility] Comment on above: Performed By: #### C BC ####[facility] Tvwaoajgob6098 [place] [phone]. Garima Pulliam EO # 0.1 103/ul Normal 0.0-0.7 [facility] Comment on above: Performed By: #### C BC ####[facility] Bcbhioqlxt0842 [place] [phone]. Garima Pulliam Eosinophils/100 WBC (Bld) 1.4 % Normal 0.9-7.0 [facility] Comment on above: Performed By: #### C BC ####[facility] Ftnltrbijl[address] [place], [place] [address]Dr. Garima Pulliam Erythrocyte distribution width (RBC) [Ratio] 13.7 % Normal 11.0-15.0 [facility] Comment on above: Performed By: #### C BC ####[facility] Cbphsrmpip[address] [place], [place] [address]Dr. Garima Pulliam Hematocrit (Bld) [Volume fraction] 45.4 % Normal 42.0-54.0 [facility] Comment on above: Performed By: #### C BC ####[facility] Vrcjybkpvg[address] [place], [place] [address]Dr. Garima Pulliam Hemoglobin (Bld) [Mass/Vol] 14.8 g/dL Normal 14.0-18.0 [facility] Comment on above: Performed By: #### C BC ####[facility] Okqlefdhbs[address] [place], [place] [address]Dr. Garima Pulliam IG # 0.04 10e3/ul Critically high 0.00-0.03 [facility] Comment on above: Performed By: #### C BC ####[facility] Ocwstrfyjt[address] [place], [place] [address]Dr. Garima Pulliam IG % 0.5 % Normal 0.0-0.5 [facility] Comment on above: Performed By: #### C BC ####[facility] Ccksmverzu[address] [place], [place] [address]Dr. Garima Pulliam LYMPH # 1.1 103/ul Critically low 1.2-3.8 The [facility] Comment on above: Performed By: #### C BC ####[facility] Gnagyugsjv1679 [place] [phone]. Garima Pulliam Lymphocytes/100 WBC (Bld) 12.7 % Critically low 20.5-60.0 [facility] Comment on above: Performed By: #### C BC ####[facility] Ufbdmzqeoc1659 [place] [phone]. Chapisrenu Pulliam MANUAL DIFF REQ NO Normal [facility] Comment on above: Performed By: #### C BC ####[facility] V[address]wjwl[address] [place], [place] [address]Dr. Garima Heraclio MCH (RBC) [Entitic mass] 30.0 pg Normal 25.9-34.0 [facility] Comment on above: Performed By: #### C BC ####[facility] Dsfohljgel[address] [place], [place] [address]Dr. Garima Heraclio MCHC (RBC) [Mass/Vol] 32.6 g/dL Normal 29.9-35.2 [facility] Comment on above: Performed By: #### C BC ####[facility] [address]qrmtfjsh[address] [place], [place] [address]Dr. Garima Heraclio MCV (RBC) [Entitic vol] 91.9 fL Normal 80.0-94.0 [facility] Comment on above: Performed By: #### C BC ####[facility] Bbjuicsrde[address] [place], [place] [address]Dr. Garima Pulliam MONO # 0.4 103/ul Normal 0.3-0.8 [facility] Comment on above: Performed By: #### C BC ####[facility] [address]ivyqh[address] [place], [place] [address]Dr. Chapisrenu Pulliam Monocytes/100 WBC (Bld) 4.8 % Normal 1.7-12.0 [facility] Comment on above: Performed By: #### C BC ####[facility] [address]rbzuxuk[address] [place], [place] [address]Dr. Garima Pulliam NEUT # 7.1 103/ul Critically high 1.4-6.5 [facility] Comment on above: Performed By: #### C BC ####[facility] Kervmkhtdj15[address] [place], [place] [address]Vq. Garima Pulliam Neutrophils/100 WBC (Bld) 80.4 % Critically high 43.0-75.0 [facility] Comment on above: Performed By: #### C BC ####[facility] Sortahyebo9956 [place] [phone]. Garima Pulliam Platelet mean volume (Bld) [Entitic vol] 9.1 fL Critically low 9.5-13.5 [facility] Comment on above: Performed By: #### C BC ####[facility] Rwchtpfagw0149 [place] [phone]. Garima Pulliam PLT 200 103/ul Normal 150-450 [facility] Comment on above: Performed By: #### C BC ####[facility] Ttalyodflx6662 [place] [phone]. Garima Pulliam RBC 4.94 106/ul Normal 4.70-6.10 [facility] Comment on above: Performed By: #### C BC ####[facility] Rzndhhbrwd7470 [place] [phone]. Garima Pulliam WBC 8.9 103/ul Normal 4.0-11.0 [facility] Comment on above: Performed By: #### C BC ####[facility] Csphaluegf3782 [place] [phone]. Garima Pulliam Covid-19 PCR (CVDTB)on SARS-CoV-2 (COVID-19) RNA MARIE+probe Ql (Unsp spec) Not detected Normal NOT DETECTED [facility] Comment on above: Result Comment: When diagnostic [...] for this test is supported by the [place] Supervisor of Health and Human Service's declaration [...] be used). Performed By: #### C VDTBH ####[facility] Uisxjtsemg7004 [place] [address]Dr. Garima Pulliam LACTATE/LACTIC ACIDon 2021 Lactate [Moles/Vol] 1.7 mmol/L Normal 0.4-1.9 [facility] [place] Comment on above: Performed By: #### L ACT ####[facility] [address]afvosfrm[address] [place], [place] [address]Dr. Garima Pulliam PROF 14(COMP METB)on 022 Albumin [Mass/Vol] 3.8 g/dL Normal 3.4-5.0 [facility] Comment on above: Performed By: #### C MP, BNP, CMADM ####[facility] Y[address]slgajx[address] [place], [place] [address]Dr. Garima Pulliam Albumin/Globulin [Mass ratio] 1.5 {ratio} Normal [facility] Comment on above: Performed By: #### C MP, BNP, CMADM ####[facility] Ccxonnzqxr7607 [place] [address]Dr. Garima Pulliam ALP [Catalytic activity/Vol] 62 U/L Normal 46-116 [facility] Comment on above: Performed By: #### C MP, BNP, CMADM ####[facility] Daeiydqdhi8690 [place] [address]Dr. Garima Pulliam ALT [Catalytic activity/Vol] 37 U/L Normal 16-63 [facility] Comment on above: Performed By: #### C MP, BNP, CMADM ####[facility] Ntceymsvxg6354 [place] [address]Dr. Garima Pulliam Anion gap [Moles/Vol] 8.0 mmol/L Normal [facility] Comment on above: Performed By: #### C MP, BNP, CMADM ####[facility] Vjzreomnxj3249 [place] [address]Dr. Garima Pulliam AST [Catalytic activity/Vol] 20 U/L Normal 15-37 [facility] Comment on above: Performed By: #### C MP, BNP, CMADM ####[facility] Wcgujgwiyv0879 [place] [address]Dr. Garima Pulliam Bilirubin [Mass/Vol] 0.6 mg/dL Normal 0.2-1.0 [facility] Comment on above: Performed By: #### C MP, BNP, CMADM ####[facility] Pftgvmhwjm7780 [place] [address]Dr. Garima Pulliam Calcium [Mass/Vol] 9.1 mg/dL Normal 8.5-10.1 [facility] Comment on above: Performed By: #### C MP, BNP, CMADM ####[facility] [address]ysfjeue[address] [place], [place] [address]Dr. Garima Pulliam Chloride [Moles/Vol] 103 mmol/L Normal 98-107 [facility] Comment on above: Performed By: #### C MP, BNP, CMADM ####[facility] Dpzzpnwaqq[address] [place], [place] [address]Dr. Garima Pulliam CO2 [Moles/Vol] 31.8 mmol/L Normal 21.0-32.0 [facility] Comment on above: Performed By: #### C MP, BNP, CMADM ####[facility] Ceqnvztavu[address] [place], [place] [address]Dr. Garima Pulliam Creatinine [Mass/Vol] 0.63 mg/dL Critically low 0.70-1.30 [facility] Comment on above: Performed By: #### C MP, BNP, CMADM ####[facility] Fvvzqxdlpw[address] [place], [place] [address]Dr. Garima Pulliam EGFR-AF CITIZ[place] >60 Normal >=60 [facility] Comment on above: Performed By: #### C MP, BNP, CMADM ####[facility] E[address]cyqsets[address] [place], [place] [address]Dr. Garima Pulliam EGFR-NON AF CITIZEN OF [place] >60 Normal >=60 [facility] Comment on above: Performed By: #### C MP, BNP, CMADM ####[facility] Diyutwzjyi9861 [place] [address]Dr. Garima Pulliam Globulin (S) [Mass/Vol] 2.6 g/dL Normal [facility] Comment on above: Performed By: #### C MP, BNP, CMADM ####[facility] Rzroqmjfjo5258 [place] [address]Dr. Garima Pulliam Glucose [Mass/Vol] 103 mg/dL Normal 74-106 The [facility] [place] Comment on above: Performed By: #### C MP, BNP, CMADM ####[facility] Rfxfrdxfxt0073 [place] [address]Dr. Garima Pulliam Potassium [Moles/Vol] 3.8 mmol/L Normal 3.5-5.1 [facility] Comment on above: Performed By: #### C MP, BNP, CMADM ####[facility] Znwddgycoe6452 [place] [address]Dr. Garima Pulliam Protein [Mass/Vol] 6.4 g/dL Normal 6.4-8.2 The [facility] [place] Comment on above: Performed By: #### C MP, BNP, CMADM ####[facility] Plzmdeuveg3748 [place] [address]Dr. Garima Pulliam Sodium [Moles/Vol] 139 mmol/L Normal 136-145 The [facility] [place] Comment on above: Performed By: #### C MP, BNP, CMADM ####[facility] Xbwhcqjkos9396 [place] [address]Dr. Garima Pulliam Urea nitrogen [Mass/Vol] 7.0 mg/dL Normal 7.0-18.0 [facility] Comment on above: Performed By: #### C MP, BNP, CMADM ####[facility] Imsuxkfsec1314 [place] [address]Dr. Garima Pulliam Urea nitrogen/Creatinine [Mass ratio] 11.1 mg/mg Normal [facility] Comment on above: Performed By: #### C MP, BNP, CMADM ####[facility] Hpvvegropc8615 [place] [address]Dr. Garima Pulliam PROTIMEon 09-29-2022 INR Coag (PPP) [Relative time] 1.14 {INR} Normal [facility] Comment on above: Performed By: #### P T, PTT ####[facility] Ndpkuggabq[address] [place], [place] [address]Dr. Garima Pulliam INR GUIDELINES SEE BELOW Normal [facility] Comment on above: Result Comment: WESLEY RED INR: 2.0 - 3.0 CONDITIONS NOT LISTED BELOW 2.5 - 3.5 FOR PROSTHETIC HEART VALVE REPLACEMENT 2.5 - 3.5 RECURRENT THROMBOSIS Performed By: #### P T, PTT ####[facility] Ndguiaqhlz06[address] [place], [place] [address]Dr. Garima Pulliam PT Coag (PPP) [Time] 12.2 s Critically high 9.0-11.6 [facility] Comment on above: Performed By: #### P T, PTT ####[facility] Jriiyobupw[address] [place], [place] [address]Dr. Garima Pulliam PTTon 09-29-2022 aPTT Coag (Bld) [Time] 29.3 s Normal 22.3-36.2 [facility] Comment on above: Performed By: #### P T, PTT ####[facility] Lfnbudlkvi[address] [place], [place] [address]Dr. Garima Pulliam XR CHEST 1 Von 09-29-2022 XR CHEST 1 V Normal [facility] CBC AUTO DIFFon 09-26-2022 BASO # 0.0 103/ul Normal 0.0-0.1 [facility] Comment on above: Performed By: #### C BC ####[facility] Hifqcyrqof[address] [place], [place] [address]Dr. Garima Pulliam Basophils/100 WBC (Bld) 0.2 % Normal 0.2-2.0 [facility] Comment on above: Performed By: #### C BC ####[facility] Wwxaaojypg[address] [place], [place] [address]Dr. Garima Pulliam EO # 0.1 103/ul Normal 0.0-0.7 [facility] Comment on above: Performed By: #### C BC ####[facility] Vkpzltjtqj88[address] [place], [place] [address]Dr. Garima Pulliam Eosinophils/100 WBC (Bld) 1.0 % Normal 0.9-7.0 [facility] Comment on above: Performed By: #### C BC ####[facility] Ajrhivcirj07[address] [place], [place] [address]Dr. Garima Pulliam Erythrocyte distribution width (RBC) [Ratio] 13.4 % Normal 11.0-15.0 [facility] Comment on above: Performed By: #### C BC ####[facility] Kwxbvukefg064[address] [place], [place] [address]Dr. Garima Pulliam Hematocrit (Bld) [Volume fraction] 46.3 % Normal 42.0-54.0 [facility] Comment on above: Performed By: #### C BC ####[facility] Qznhzswruw[address] [place], [place] [address]Dr. Garima Pulliam Hemoglobin (Bld) [Mass/Vol] 15.3 g/dL Normal 14.0-18.0 [facility] Comment on above: Performed By: #### C BC ####[facility] Crtpphkcuw[address] [place], [place] [address]Dr. Garima Pulliam IG # 0.05 10e3/ul Critically high 0.00-0.03 [facility] Comment on above: Performed By: #### C BC ####[facility] Vtqaamtprj[address] [place], [place] [address]Dr. Garima Pulliam IG % 0.4 % Normal 0.0-0.5 [facility] Comment on above: Performed By: #### C BC ####[facility] Vujcomsehb[address] [place], [place] [address]Dr. Garima Pulliam LYMPH # 1.7 103/ul Normal 1.2-3.8 [facility] Comment on above: Performed By: #### C BC ####[facility] Twcnxqezyz8[address] [place], [place] [address]Dr. Garima Pulliam Lymphocytes/100 WBC (Bld) 12.7 % Critically low 20.5-60.0 [facility] Comment on above: Performed By: #### C BC ####[facility] Zpdurcdmuh7[address] [place] [address]DrAdalberto Pulliam MANUAL DIFF REQ NO Normal [facility] Comment on above: Performed By: #### C BC ####[facility] Xsifklucji0276 [place] [address]Dr. Garima Pulliam MCH (RBC) [Entitic mass] 30.1 pg Normal 25.9-34.0 [facility] Comment on above: Performed By: #### C BC ####[facility] Sbxtqcikiz[address] [place], [place] [address]Dr. Garima Pulliam MCHC (RBC) [Mass/Vol] 33.0 g/dL Normal 29.9-35.2 [facility] Comment on above: Performed By: #### C BC ####[facility] Qqthdsncve[address] [place], [place] [address]DrAdalberto Pulliam MCV (RBC) [Entitic vol] 91.1 fL Normal 80.0-94.0 [facility] Comment on above: Performed By: #### C BC ####[facility] Zgrryevgzg202[address] [place], [place] [address]DrAdalberto Pulliam MONO # 0.9 103/ul Critically high 0.3-0.8 [facility] Comment on above: Performed By: #### C BC ####[facility] Oetbtfccpc[address] [place], [place] [address]DrAdalberto Pulliam Monocytes/100 WBC (Bld) 7.0 % Normal 1.7-12.0 [facility] Comment on above: Performed By: #### C BC ####[facility] Anpgvrbfoi26[address] [place], [place] [address]DrAdalberto Pulliam NEUT # 10.4 103/ul Critically high 1.4-6.5 [facility] Comment on above: Performed By: #### C BC ####[facility] Srijkrmmns8864[address] [place], [place] [address]DrAdalberto Pulliam Neutrophils/100 WBC (Bld) 78.7 % Critically high 43.0-75.0 [facility] Comment on above: Performed By: #### C BC ####[facility] Xpncbmbwzp6143 [place] [address]Dr. Garima Pulliam Platelet mean volume (Bld) [Entitic vol] 8.9 fL Critically low 9.5-13.5 [facility] Comment on above: Performed By: #### C BC ####[facility] Abthvueqdi0542 [place] [address]Dr. Garima Pulliam PLT 195 103/ul Normal 150-450 [facility] Comment on above: Performed By: #### C BC ####[facility] Godcugtrrt93[address] [place], [place] [address]Dr. Garima Pulliam RBC 5.08 106/ul Normal 4.70-6.10 [facility] Comment on above: Performed By: #### C BC ####[facility] Rulkhosohe33[address] [place], [place] [address]Dr. Garima Pulliam WBC 13.2 103/ul Critically high 4.0-11.0 [facility] Comment on above: Performed By: #### C BC ####[facility] Zbwkktvpyn6310[address] [place], [place] [address]Dr. Garima Pulliam PROF 14(COMP METB)on 022 Albumin [Mass/Vol] 3.5 g/dL Normal 3.4-5.0 [facility] Comment on above: Performed By: #### C DAVID HSTROPN ####[facility] Guwszgnkhm7[address] [place] [address]Dr. Garima Pulliam Albumin/Globulin [Mass ratio] 1.2 {ratio} Normal [facility] Comment on above: Performed By: #### C RAFAT HERNANDEZTROPN ####[facility] Syccgnopqc3693 [place] [address]Dr. Garima Pulliam ALP [Catalytic activity/Vol] 71 U/L Normal 46-116 [facility] Comment on above: Performed By: #### C DAVID HSTROPN ####[facility] Rsumoomdza2134 [place] [address]Dr. Garima Pulliam ALT [Catalytic activity/Vol] 37 U/L Normal 16-63 [facility] Comment on above: Performed By: #### C DAVID, HSTROPN ####[facility] Hoxfkpfota1321 [place] [address]Dr. Garima Pulliam Anion gap [Moles/Vol] 4.8 mmol/L Normal [facility] Comment on above: Performed By: #### C DAVID, HSTROPN ####[facility] Vjvqsrypgf74[address] [place], [place] [address]Dr. Garima Pulliam AST [Catalytic activity/Vol] 21 U/L Normal 15-37 [facility] Comment on above: Performed By: #### C DAVID, HSTROPN ####[facility] Xjmtmplszf506[address] [place], [place] [address]Dr. Garima Pulliam Bilirubin [Mass/Vol] 0.3 mg/dL Normal 0.2-1.0 [facility] Comment on above: Performed By: #### C DAVID, HSTROPN ####[facility] Fgctdisogl6872 [place] [address]Dr. Garima Pulliam Calcium [Mass/Vol] 8.9 mg/dL Normal 8.5-10.1 [facility] Comment on above: Performed By: #### C DAVID, HSTROPN ####[facility] Eujwcgilbn6605 [place] [address]Dr. Garima Pulliam Chloride [Moles/Vol] 106 mmol/L Normal 98-107 [facility] Comment on above: Performed By: #### C DAVID, HSTROPN ####[facility] Ukeuaxmdat3086 [place] [address]Dr. Garima Pulliam CO2 [Moles/Vol] 29.8 mmol/L Normal 21.0-32.0 [facility] Comment on above: Performed By: #### C DAVID, HSTROPN ####[facility] Kvcqarhkxk5852 [place] [address]Dr. Garima Pulliam Creatinine [Mass/Vol] 0.68 mg/dL Critically low 0.70-1.30 [facility] Comment on above: Performed By: #### C MP, HSTROPN ####[facility] Xdcsfbhbvq6387 [place] [address]Dr. Garima Pulliam EGFR-AF CITIZEN OF [place] >60 Normal >=60 [facility] Comment on above: Performed By: #### C MP, HSTROPN ####[facility] Aqaqatbkty2637 [place] [address]Dr. Chapislan Pulliam EGFR-NON AF CITIZEN OF [place] >60 Normal >=60 [facility] Comment on above: Performed By: #### C MP, HSTROPN ####[facility] Nmtwjkbcxf9804 [place] [address]Dr. Garima Pulliam Globulin (S) [Mass/Vol] 2.8 g/dL Normal [facility] Comment on above: Performed By: #### C MP, HSTROPN ####[facility] Wgjkaziobs3845 [place] [address]Dr. Garima Pulliam Glucose [Mass/Vol] 133 mg/dL Critically high 74-106 [facility] Comment on above: Performed By: #### C MP, HSTROPN ####[facility] Yyupmnuxew44[address] [place] [address]Dr. Chapisrenu Pulliam Potassium [Moles/Vol] 3.6 mmol/L Normal 3.5-5.1 [facility] Comment on above: Performed By: #### C MP, HSTROPN ####[facility] Xcyhjucqcu9633 [place] [address]Dr. Chapisrenu Pulliam Protein [Mass/Vol] 6.3 g/dL Critically low 6.4-8.2 [facility] Comment on above: Performed By: #### C MP, HSTROPN ####[facility] Zmhpsplagq30[address] [place], [place] [address]Dr. Chapisrenu Pulliam Sodium [Moles/Vol] 137 mmol/L Normal 136-145 [facility] Comment on above: Performed By: #### C MP, HSTROPN ####[facility] Nrzwqzbiug67[address] [place], [place] [address]Dr. Garima Pulliam Urea nitrogen [Mass/Vol] 15.0 mg/dL Normal 7.0-18.0 [facility] Comment on above: Performed By: #### C DAVID HSTROPN ####[facility] Cdvrrgahwz6776 [place] [address]Dr. Chapisrenu Pulliam Urea nitrogen/Creatinine [Mass ratio] 22.1 mg/mg Normal [facility] Comment on above: Performed By: #### C DAVID HSTROPN ####[facility] Nlyzcgtjga2848 [place] [address]Dr. Garima Heraclio TROPONIN, HIGH SENSITIVITYon 09-26-2022 HSTROP 12.8 pg/mL Normal 4.0-76.1 [facility] Comment on above: Result Comment: CUT- OFF POINTS HAVE BEEN ESTABLISHED BASED ON THE FOURTH UNIVERSAL DEFINITIONS OF MYOCARDIALINFARCTION. THE UPPER REFERENCE LIMIT (URL) OF TROPONIN, DEFINED THE 99TH PERCENTILE OFcTnI DISTRIBUTION IN A REFERENCE POPULATION, HAS BEEN CONFIRMED THE DECISION THRESHOLDFOR [place] DIAGNOSIS. Performed By: #### C DAVID HSTROPN ####[facility] Ijfshopxwl0262 [place] [address]Dr. Chapisrenu Pulliam XR CHEST 1 Von 09-26-2022 XR CHEST 1 V Normal [facility] XR CHEST 1 Von 09-16-2022 XR CHEST 1 V Normal [facility] CBC AUTO DIFFon 09-15-2022 BASO # 0.0 103/ul Normal 0.0-0.1 [facility] Comment on above: Performed By: #### C BC ####[facility] Qnshbhdlkd7988 [place] [address]Dr. Garima Heraclio Basophils/100 WBC (Bld) 0.1 % Critically low 0.2-2.0 [facility] Comment on above: Performed By: #### C BC ####[facility] Abugcmseok6052 [place] [address]Dr. Garima Pulliam EO # 0.0 103/ul Normal 0.0-0.7 [facility] Comment on above: Performed By: #### C BC ####[facility] Qatdpurfve0093 [place] [address]Dr. Garima Pulliam Eosinophils/100 WBC (Bld) 0.1 % Critically low 0.9-7.0 [facility] Comment on above: Performed By: #### C BC ####[facility] Ececltkaof0632 [place] [address]Dr. Garima Pulliam Erythrocyte distribution width (RBC) [Ratio] 14.1 % Normal 11.0-15.0 [facility] Comment on above: Performed By: #### C BC ####[facility] Bwnpflfyzv[address] [place], [place] [address]Dr. Garima Pulliam Hematocrit (Bld) [Volume fraction] 46.1 % Normal 42.0-54.0 [facility] Comment on above: Performed By: #### C BC ####[facility] Wlbgqksaly512[address] [place], [place] [address]Dr. Garima Pulliam Hemoglobin (Bld) [Mass/Vol] 15.0 g/dL Normal 14.0-18.0 [facility] Comment on above: Performed By: #### C BC ####[facility] Hucupxtvby[address] [place], [place] [address]Dr. Garima Pulliam IG # 0.03 10e3/ul Normal 0.00-0.03 [facility] Comment on above: Performed By: #### C BC ####[facility] Hegyvgiqmc64[address] [place], [place] [address]Dr. Garima Pulliam IG % 0.3 % Normal 0.0-0.5 [facility] Comment on above: Performed By: #### C BC ####[facility] Ewumwudxmm246[address] [place], [place] [address]Dr. Garima Pulliam LYMPH # 0.6 103/ul Critically low 1.2-3.8 The [facility] Comment on above: Performed By: #### C BC ####[facility] Jdwnnvkzjf[address] [place], [place] [address]Dr. Garima Pulliam Lymphocytes/100 WBC (Bld) 5.8 % Critically low 20.5-60.0 [facility] Comment on above: Performed By: #### C BC ####[facility] Wqnjaxnvjx4423 [place] [id number]. Garima Pulliam MANUAL DIFF REQ NO Normal [facility] Comment on above: Performed By: #### C BC ####[facility] Uvevxbfssc6233 [place] [phone]. Garima Pulliam MCH (RBC) [Entitic mass] 30.2 pg Normal 25.9-34.0 [facility] Comment on above: Performed By: #### C BC ####[facility] Xvsprqsepe5156 [place] [address]Dr. Garima Pulliam MCHC (RBC) [Mass/Vol] 32.5 g/dL Normal 29.9-35.2 [facility] Comment on above: Performed By: #### C BC ####[facility] Suvujazkep5[address] [place] [address]Dr. Garima Pulliam MCV (RBC) [Entitic vol] 92.8 fL Normal 80.0-94.0 [facility] Comment on above: Performed By: #### C BC ####[facility] Cyvkxpcqce92[address] [place] [address]Dr. Garima Heraclio MONO # 0.3 103/ul Normal 0.3-0.8 [facility] Comment on above: Performed By: #### C BC ####[facility] Immpugvidn6036 [place] [id number]. Garima Heraclio Monocytes/100 WBC (Bld) 3.2 % Normal 1.7-12.0 [facility] Comment on above: Performed By: #### C BC ####[facility] Wndnrbxmzv4049 [place] [phone]. Garima Pulliam NEUT # 9.8 103/ul Critically high 1.4-6.5 [facility] Comment on above: Performed By: #### C BC ####[facility] Evwnziimlz3051 [place] [phone]. Garima Pulliam Neutrophils/100 WBC (Bld) 90.5 % Critically high 43.0-75.0 [facility] Comment on above: Performed By: #### C BC ####[facility] Ihzlptqlpo6611 [place] [phone]. Garima Pulliam Platelet mean volume (Bld) [Entitic vol] 9.4 fL Critically low 9.5-13.5 [facility] Comment on above: Performed By: #### C BC ####[facility] Bkqlmztmct9820 [place] [phone]. Garima Pulliam PLT 208 103/ul Normal 150-450 [facility] Comment on above: Performed By: #### C BC ####[facility] Mqvlqgfhbb4816 [place] [address]Dr. Garima Pulliam RBC 4.97 106/ul Normal 4.70-6.10 [facility] Comment on above: Performed By: #### C BC ####[facility] Tqqgnyqmch8841 [place] [address]Dr. Garima Pulliam WBC 10.8 103/ul Normal 4.0-11.0 [facility] Comment on above: Performed By: #### C BC ####[facility] Tdfemkskoq5196 [place] [address]Dr. Garima Pulliam PROF 14(COMP METB)on 022 Albumin [Mass/Vol] 4.0 g/dL Normal 3.4-5.0 [facility] Comment on above: Performed By: #### C MP ####[facility] Yjhmhwcjjf9029 [place] [address]Dr. Garima Pulliam Albumin/Globulin [Mass ratio] 1.5 {ratio} Normal [facility] Comment on above: Performed By: #### C MP ####[facility] Qcpatohcwn5474 [place] [address]Dr. Garima Pulliam ALP [Catalytic activity/Vol] 73 U/L Normal 46-116 [facility] Comment on above: Performed By: #### C MP ####[facility] Hhjvlmqrsj6650 [place] [address]Dr. Garima Pulliam ALT [Catalytic activity/Vol] 42 U/L Normal 16-63 [facility] Comment on above: Performed By: #### C MP ####[facility] Hwzzzkxlgd4933 [place] [address]Dr. Garima Pulliam Anion gap [Moles/Vol] 9.1 mmol/L Normal [facility] Comment on above: Performed By: #### C MP ####[facility] Oonbcbjhci[address] [place], [place] [address]Dr. Garima Pulliam AST [Catalytic activity/Vol] 28 U/L Normal 15-37 [facility] Comment on above: Performed By: #### C MP ####[facility] Xjlxesztkk[address] [place], [place] [address]Dr. Garima Pulliam Bilirubin [Mass/Vol] 0.6 mg/dL Normal 0.2-1.0 [facility] Comment on above: Performed By: #### C MP ####[facility] Cowxebgsch505[address] [place], [place] [address]Dr. Garima Pulliam Calcium [Mass/Vol] 8.6 mg/dL Normal 8.5-10.1 The [facility] Comment on above: Performed By: #### C MP ####[facility] Ddoyksruzb470[address] [place], [place] [address]Dr. Garima Pulliam Chloride [Moles/Vol] 105 mmol/L Normal 98-107 [facility] Comment on above: Performed By: #### C MP ####[facility] Ihbbyepcfv9[address] [place], [place] [address]Dr. Garima Pulliam CO2 [Moles/Vol] 28.5 mmol/L Normal 21.0-32.0 [facility] Comment on above: Performed By: #### C MP ####[facility] Ivqscdvlfq34[address] [place], [place] [address]Dr. Garima Heraclio Creatinine [Mass/Vol] 0.78 mg/dL Normal 0.70-1.30 [facility] Comment on above: Performed By: #### C MP ####[facility] Uuzhukzukv[address] [place], [place] [address]Dr. Chapisrenu Heraclio EGFR-AF CITIZEN [place] >60 Normal >=60 [facility] Comment on above: Performed By: #### C MP ####[facility] Xkqmyvzomi698[address] [place], [place] [address]Dr. Garima Pulliam EGFR-NON AF CITIZEN OF [place] >60 Normal >=60 [facility] Comment on above: Performed By: #### C MP ####[facility] Grcqwjbcil4664 [place] [address]Dr. Garima Pulliam Globulin (S) [Mass/Vol] 2.7 g/dL Normal [facility] Comment on above: Performed By: #### C MP ####[facility] Ikfyobncte5258 [place] [address]Dr. Garima Pulliam Glucose [Mass/Vol] 220 mg/dL Critically high 74-106 [facility] Comment on above: Performed By: #### C MP ####[facility] Gffklutvcq7566 [place] [address]Dr. Garima Pulliam Potassium [Moles/Vol] 3.6 mmol/L Normal 3.5-5.1 [facility] Comment on above: Performed By: #### C MP ####[facility] Dmvatnhixe[address] [place], [place] [address]Dr. Garima Pulliam Protein [Mass/Vol] 6.7 g/dL Normal 6.4-8.2 [facility] Comment on above: Performed By: #### C MP ####[facility] Dxpxtppovh326[address] [place], [place] [address]Dr. Garima Pulliam Sodium [Moles/Vol] 139 mmol/L Normal 136-145 [facility] Comment on above: Performed By: #### C MP ####[facility] Uztdzuugip656[address] [place], [place] [address]Dr. Garima Pulliam Urea nitrogen [Mass/Vol] 11.0 mg/dL Normal 7.0-18.0 [facility] Comment on above: Performed By: #### C MP ####[facility] Znxrsehcpd024[address] [place], [place] [address]Dr. Garima Pulliam Urea nitrogen/Creatinine [Mass ratio] 14.1 mg/mg Normal [facility] Comment on above: Performed By: #### C MP ####[facility] Edcfcdqicd0014[address] [place], [place] [address]Dr. Garima Pulliam CARDIAC NASH 3-6on 2 CK [Catalytic activity/Vol] 240 U/L Normal 39-308 [facility] Comment on above: Performed By: #### C MREP ####[facility] Kjdzqduyog4576 [place] [address]Dr. Garima Pulliam CK.MB [Mass/Vol] 10.38 ng/mL Critically high <=3.60 Th [facility] Comment on above: Performed By: #### C MREP ####[facility] Zcanuwnetg8570 [place] [address]Dr. Garima Pulliam HSTROP 18.5 pg/mL Normal 4.0-76.1 [facility] Comment on above: Result Comment: CUT- OFF POINTS HAVE BEEN ESTABLISHED BASED ON THE FOURTH UNIVERSAL DEFINITIONS OF MYOCARDIALINFARCTION. THE UPPER REFERENCE LIMIT (URL) OF TROPONIN, DEFINED THE 99TH PERCENTILE OFcTnI DISTRIBUTION IN A REFERENCE POPULATION, HAS BEEN CONFIRMED THE DECISION THRESHOLDFOR [place] DIAGNOSIS. Performed By: #### C MREP ####[facility] Vigvyidome18[address] [place] [address]Dr. Garima Pulliam CK [Catalytic activity/Vol] 257 U/L Normal 39-308 [facility] Comment on above: Performed By: #### C MREP ####[facility] Tloujhdahq[address] [place], [place] [address]Dr. Garima Pulliam CK.MB [Mass/Vol] 9.89 ng/mL Critically high <=3.60 [facility] Comment on above: Performed By: #### C MREP ####[facility] Chqwihftaf54[address] [place], [place] [address]Dr. Garima Pulliam HSTROP 16.9 pg/mL Normal 4.0-76.1 [facility] Comment on above: Result Comment: CUT- OFF POINTS HAVE BEEN ESTABLISHED BASED ON THE FOURTH UNIVERSAL DEFINITIONS OF MYOCARDIALINFARCTION. THE UPPER REFERENCE LIMIT (URL) OF TROPONIN, DEFINED THE 99TH PERCENTILE OFcTnI DISTRIBUTION IN A REFERENCE POPULATION, HAS BEEN CONFIRMED THE DECISION THRESHOLDFOR [place] DIAGNOSIS. Performed By: #### C MREP ####[facility] Hplorpunxn9221 [place] [address]Dr. Garima Heraclio CBC AUTO DIFFon 10-22-2022 BASO # 0.0 103/ul Normal 0.0-0.1 [facility] Comment on above: Performed By: #### C BC ####[facility] Vmjghbosye2754 [place] [id number]. Garima Pulliam Basophils/100 WBC (Bld) 0.1 % Critically low 0.2-2.0 [facility] Comment on above: Performed By: #### C BC ####[facility] Kpzlewpbab9394 [place] [address]Dr. Garima Pulliam EO # 0.0 103/ul Normal 0.0-0.7 [facility] Comment on above: Performed By: #### C BC ####[facility] Gvfebtsups[address] [place], [place] [address]Dr. Chapisrenu Heraclio Eosinophils/100 WBC (Bld) 0.0 % Critically low 0.9-7.0 [facility] Comment on above: Performed By: #### C BC ####[facility] Ckskogwhnh96[address] [place], [place] [address]Dr. Garima Pulliam Erythrocyte distribution width (RBC) [Ratio] 13.6 % Normal 11.0-15.0 [facility] Comment on above: Performed By: #### C BC ####[facility] Chqvehlpbg717[address] [place], [place] [address]Dr. Garima Pulliam Hematocrit (Bld) [Volume fraction] 48.2 % Normal 42.0-54.0 [facility] Comment on above: Performed By: #### C BC ####[facility] Fonhydstpf47[address] [place], [place] [address]Dr. Garima Pulliam Hemoglobin (Bld) [Mass/Vol] 16.0 g/dL Normal 14.0-18.0 [facility] Comment on above: Performed By: #### C BC ####[facility] Wkekbnoezw[address] [place], [place] [address]Dr. Chapisrenu Heraclio IG # 0.02 10e3/ul Normal 0.00-0.03 [facility] Comment on above: Performed By: #### C BC ####[facility] Ybsfpcpacq1846 [place] [id number]. Garima Pulliam IG % 0.3 % Normal 0.0-0.5 [facility] Comment on above: Performed By: #### C BC ####[facility] Thtasqhxll0363 [place] [address]Dr. Garima Heraclio LYMPH # 0.5 103/ul Critically low 1.2-3.8 The [facility] Comment on above: Performed By: #### C BC ####[facility] Wydismrwrp0642 [place] [address]Dr. Garima Heraclio Lymphocytes/100 WBC (Bld) 7.7 % Critically low 20.5-60.0 [facility] Comment on above: Performed By: #### C BC ####[facility] Zlcsagkxzi806[address] [place], [place] [address]Dr. Chapisrenu Pulliam MANUAL DIFF REQ NO Normal [facility] Comment on above: Performed By: #### C BC ####[facility] Ortvccwjnx425[address] [place], [place] [address]Dr. Garima Heraclio MCH (RBC) [Entitic mass] 30.6 pg Normal 25.9-34.0 [facility] Comment on above: Performed By: #### C BC ####[facility] [address]luhrmvjwj[address] [place], [place] [address]Dr. Garima Pulliam MCHC (RBC) [Mass/Vol] 33.2 g/dL Normal 29.9-35.2 [facility] Comment on above: Performed By: #### C BC ####[facility] Wwuondiytg[address] [place], [place] [address]Dr. Garima Heraclio MCV (RBC) [Entitic vol] 92.2 fL Normal 80.0-94.0 [facility] Comment on above: Performed By: #### C BC ####[facility] Nhyhtjiwrv[address] [place], [place] [address]Dr. Garima Pulliam MONO # 0.0 103/ul Critically low 0.3-0.8 The [facility] Comment on above: Performed By: #### C BC ####[facility] Zsusqqygip5169 [place] [id number]. Garima Pulliam Monocytes/100 WBC (Bld) 0.4 % Critically low 1.7-12.0 [facility] Comment on above: Performed By: #### C BC ####[facility] Vlknltumvd4907 [place] [phone]. Garima Pulliam NEUT # 6.2 103/ul Normal 1.4-6.5 [facility] Comment on above: Performed By: #### C BC ####[facility] Yhymnoilur3651 [place] [address]Dr. Garima Pulliam Neutrophils/100 WBC (Bld) 91.5 % Critically high 43.0-75.0 [facility] Comment on above: Performed By: #### C BC ####[facility] Zqlxojzodn3870 [place] [address]Dr. Garima Pulliam Platelet mean volume (Bld) [Entitic vol] 8.7 fL Critically low 9.5-13.5 [facility] Comment on above: Performed By: #### C BC ####[facility] Rusddnreob2[address] [place] [address]Dr. Garima Pulliam PLT 179 103/ul Normal 150-450 [facility] Comment on above: Performed By: #### C BC ####[facility] Zlsdwgwnrs1973 [place] [phone]. Garima Pulliam RBC 5.23 106/ul Normal 4.70-6.10 [facility] Comment on above: Performed By: #### C BC ####[facility] Hfcvnkduqy6973 [place] [address]Dr. Garima Pulliam WBC 6.7 103/ul Normal 4.0-11.0 [facility] Comment on above: Performed By: #### C BC ####[facility] Gshfxfzjwq5072 [place] [address]Dr. Garima Pulliam PROF CHEM 8 (BAS METB)on Anion gap [Moles/Vol] 12.1 mmol/L Normal Th [facility] Comment on above: Performed By: #### B MP ####[facility] Zatmxyfdcu5738 [place] [id number]. Garima Pulliam Calcium [Mass/Vol] 8.7 mg/dL Normal 8.5-10.1 The [facility] Comment on above: Performed By: #### B MP ####[facility] [address] [place] [id number]. Garima Pulliam Chloride [Moles/Vol] 105 mmol/L Normal 98-107 [facility] Comment on above: Performed By: #### B MP ####[facility] [address] [place] [id number]. Garima Pulliam CO2 [Moles/Vol] 25.5 mmol/L Normal 21.0-32.0 [facility] Comment on above: Performed By: #### B MP ####[facility] [address] [place] [address]Dr. Garima Pulliam Creatinine [Mass/Vol] 0.63 mg/dL Critically low 0.70-1.30 [facility] Comment on above: Performed By: #### B MP ####[facility] [address] [place] [address]Dr. Garima Pulliam EGFR-AF CITIZ[place] >60 Normal >=60 [facility] Comment on above: Performed By: #### B MP ####[facility] [address] [place] [address]Dr. Garima Pulliam EGFR-NON AF CITIZEN OF [place] >60 Normal >=60 [facility] Comment on above: Performed By: #### B MP ####[facility] [address] [place] [address]Dr. Garmia Pulliam Glucose [Mass/Vol] 162 mg/dL Critically high 74-106 [facility] Comment on above: Performed By: #### B MP ####[facility] [address] [place], [place] [address]Dr. Garima Pulliam Potassium [Moles/Vol] 3.6 mmol/L Normal 3.5-5.1 [facility] Comment on above: Performed By: #### B MP ####[facility] [address] [place], [place] [address]Dr. Garima Pulliam Sodium [Moles/Vol] 139 mmol/L Normal 136-145 [facility] Comment on above: Performed By: #### B DAVID ####[facility] [address] [place] [address]Dr. Garima Pulliam Urea nitrogen [Mass/Vol] 9.0 mg/dL Normal 7.0-18.0 [facility] Comment on above: Performed By: #### B DAVID ####[facility] [address] [place] [address]Dr. Garima Pulliam Urea nitrogen/Creatinine [Mass ratio] 14.3 mg/mg Normal [facility] Comment on above: Performed By: #### B DAVID ####[facility] [address] [place] [address]Dr. Chapisrenu Pulliam CARDIAC NASH ADMITon 09-12- 022 CK [Catalytic activity/Vol] 304 U/L Normal 39-308 [facility] Comment on above: Performed By: #### B NANCY HERNANDEZ ####[facility] [address] [place] [address]Dr. Garima Pulliam CK.MB [Mass/Vol] 11.81 ng/mL Critically high <=3.60 [facility] Comment on above: Performed By: #### B NANCY HERNANDEZ ####[facility] [address] [place] [address]Dr. Garima Heraclio HSTROP 13.3 pg/mL Normal 4.0-76.1 [facility] Comment on above: Result Comment: CUT- OFF POINTS HAVE BEEN ESTABLISHED BASED ON THE FOURTH UNIVERSAL DEFINITIONS OF MYOCARDIALINFARCTION. THE UPPER REFERENCE LIMIT (URL) OF TROPONIN, DEFINED THE 99TH PERCENTILE OFcTnI DISTRIBUTION IN A REFERENCE POPULATION, HAS BEEN CONFIRMED THE DECISION THRESHOLDFOR [place] DIAGNOSIS. Performed By: #### B NANCY HERNANDEZ ####[facility] [address] [place] [address]Dr. Garima Pulliam DORIS 133 ng/mL Critically high 16-96 [facility] Comment on above: Performed By: #### B NANCY HERNANDEZ ####[facility] [address] [place] [address]Dr. Garima Pulliam CBC AUTO DIFFon 09-12-2022 BASO # 0.0 103/ul Normal 0.0-0.1 [facility] Comment on above: Performed By: #### C BC ####[facility] [address] [place], [place] [id number]. Garima Heraclio Basophils/100 WBC (Bld) 0.2 % Normal 0.2-2.0 [facility] Comment on above: Performed By: #### C BC ####[facility] [address] [place], [place] [address]Dr. Garima Heraclio EO # 0.2 103/ul Normal 0.0-0.7 [facility] Comment on above: Performed By: #### C BC ####[facility] [address] [place], [place] [address]Dr. Chapisrenu Pulliam Eosinophils/100 WBC (Bld) 1.3 % Normal 0.9-7.0 [facility] Comment on above: Performed By: #### C BC ####[facility] [address] [place], [place] [address]Dr. Garima Pulliam Erythrocyte distribution width (RBC) [Ratio] 13.7 % Normal 11.0-15.0 [facility] Comment on above: Performed By: #### C BC ####[facility] [address] [place], [place] [address]Dr. Garima Pulliam Hematocrit (Bld) [Volume fraction] 46.4 % Normal 42.0-54.0 [facility] Comment on above: Performed By: #### C BC ####[facility] [address] [place], [place] [address]Dr. Garima Pulliam Hemoglobin (Bld) [Mass/Vol] 15.7 g/dL Normal 14.0-18.0 [facility] Comment on above: Performed By: #### C BC ####[facility] [address] [place], [place] [address]Dr. Garima Pulliam IG # 0.04 10e3/ul Critically high 0.00-0.03 [facility] Comment on above: Performed By: #### C BC ####[facility] [address] [place] [id number]. Garima Pulliam IG % 0.3 % Normal 0.0-0.5 [facility] Comment on above: Performed By: #### C BC ####[facility] [address] [place] [id number]. Garima Pulliam LYMPH # 1.7 103/ul Normal 1.2-3.8 [facility] Comment on above: Performed By: #### C BC ####[facility] [address] [place] [id number]. Garima Pulliam Lymphocytes/100 WBC (Bld) 11.5 % Critically low 20.5-60.0 [facility] Comment on above: Performed By: #### C BC ####[facility] [address] [place] [id number]. Garima Pulliam MANUAL DIFF REQ NO Normal [facility] Comment on above: Performed By: #### C BC ####[facility] [address] [place] [id number]. Garima Pulliam MCH (RBC) [Entitic mass] 31.0 pg Normal 25.9-34.0 [facility] Comment on above: Performed By: #### C BC ####[facility] [address] [place] [id number]. Garima Pulliam MCHC (RBC) [Mass/Vol] 33.8 g/dL Normal 29.9-35.2 [facility] Comment on above: Performed By: #### C BC ####[facility] [address] [place] [id number]. Garima Pulliam MCV (RBC) [Entitic vol] 91.7 fL Normal 80.0-94.0 [facility] Comment on above: Performed By: #### C BC ####[facility] [address] [place] [id number]. Garima Heraclio MONO # 0.8 103/ul Normal 0.3-0.8 [facility] Comment on above: Performed By: #### C BC ####[facility] [address] [place] [id number]. Garima Pulliam Monocytes/100 WBC (Bld) 5.2 % Normal 1.7-12.0 [facility] Comment on above: Performed By: #### C BC ####[facility] [address] [place] [id number]. Garima Pulliam NEUT # 11.7 103/ul Critically high 1.4-6.5 [facility] Comment on above: Performed By: #### C BC ####[facility] [address] [place] [id number]. Garima Pulliam Neutrophils/100 WBC (Bld) 81.5 % Critically high 43.0-75.0 [facility] Comment on above: Performed By: #### C BC ####[facility] [address] [place] [address]Dr. Garima Pulliam Platelet mean volume (Bld) [Entitic vol] 8.6 fL Critically low 9.5-13.5 [facility] Comment on above: Performed By: #### C BC ####[facility] [address] [place] [id number]. Garima Pulliam PLT 191 103/ul Normal 150-450 [facility] Comment on above: Performed By: #### C BC ####[facility] [address] [place], [place] [address]Dr. Garima Pulliam RBC 5.06 106/ul Normal 4.70-6.10 [facility] Comment on above: Performed By: #### C BC ####[facility] [address] [place], [place] [address]Dr. Garima Pulliam WBC 14.4 103/ul Critically high 4.0-11.0 [facility] Comment on above: Performed By: #### C BC ####[facility] [address] [place], [place] [address]Dr. Garima Pulliam [facility] SARS-CoV-2 (COVID-19) RNA MARIE+probe Ql (Unsp spec) Not detected Normal NOT DETECTED [facility] Comment on above: Result Comment: When [...] for this test is supported by the [place] of Health and Human Service's declaration that [...] be used). Performed By: #### C VDTBH ####[facility] [address] [place], [place] [address]Dr. Garima Pulliam LACTATE/LACTIC ACIDon 2021 Lactate [Moles/Vol] 1.0 mmol/L Normal 0.4-1.9 [facility] [place] Comment on above: Performed By: #### L ACT ####[facility] [address] [place], [place] [address]Dr. Garima Pulliam PROF CHEM 8 (BAS METB)on Anion gap [Moles/Vol] 11.6 mmol/L Normal [facility] Comment on above: Performed By: #### B NANCY HERNANDEZ ####[facility] [address] [place] [address]Dr. Garima Pulliam Calcium [Mass/Vol] 9.2 mg/dL Normal 8.5-10.1 [facility] Comment on above: Performed By: #### B NANCY HERNANDEZ ####[facility] [address] [place] [address]Dr. Garima Pulliam Chloride [Moles/Vol] 105 mmol/L Normal 98-107 [facility] Comment on above: Performed By: #### B MP, CMADM ####[facility] [address] [place] [id number]. Garima Pulliam CO2 [Moles/Vol] 25.9 mmol/L Normal 21.0-32.0 [facility] Comment on above: Performed By: #### B DAVID, CMADM ####[facility] [address] [place] [address]Dr. Garima Pulliam Creatinine [Mass/Vol] 0.72 mg/dL Normal 0.70-1.30 [facility] Comment on above: Performed By: #### B DAVID, CMADM ####[facility] [address] [place] [id number]. Garima Pulliam EGFR-AF CITIZ[place] >60 Normal >=60 [facility] Comment on above: Performed By: #### B DAVID, CMADM ####[facility] [address] [place] [address]Dr. Chapisrenu Pulliam EGFR-NON AF CITIZEN OF [place] >60 Normal >=60 [facility] Comment on above: Performed By: #### B DAVID, CMAANA ROSA ####[facility] [address] [place] [address]Dr. Garima Pulliam Glucose [Mass/Vol] 111 mg/dL Critically high 74-106 [facility] Comment on above: Performed By: #### B DAVID, CMADM ####[facility] [address] [place] [address]Dr. Chapisrenu Pulliam Potassium [Moles/Vol] 3.5 mmol/L Normal 3.5-5.1 [facility] Comment on above: Performed By: #### B DAVID, CMADM ####[facility] [address] [place] [address]Dr. Chapisrenu Pulliam Sodium [Moles/Vol] 139 mmol/L Normal 136-145 [facility] Comment on above: Performed By: #### B DAVID, CMADM ####[facility] [address] [place] [address]Dr. Garima Pulliam Urea nitrogen [Mass/Vol] 7.0 mg/dL Normal 7.0-18.0 [facility] Comment on above: Performed By: #### B ADVID, CMADM ####[facility] [address] [place], [place] [address]Ye. Garima Pulliam Urea nitrogen/Creatinine [Mass ratio] 9.7 mg/mg Normal [facility] Comment on above: Performed By: #### B MP, CMADM ####[facility] [address] [place], [place] [address]Po. Garima Pulliam XR CHEST 1 Von 09-12-2022 XR CHEST 1 V Normal [facility] Encounters Encounter Date Encounter Type Care Provider [...] Facility:H1 Payers Date Payer Category Payer Unknown [id number] 1960 Medicaid [id number] 1960 Unknown [id number] 1960 Unknown [id number] 1954 Unknown [id number] 2.16.84 0.1.387847.3.579.2.593 1954 Unknown [id number] 2.16.84 0.1.142337.3.579.2.593 1954 Unknown [id number] 2.16.84 0.1.682096.3.579.2.593 1954 Unknown [id number] 2.16.84 0.1.387273.3.579.2.593 1954 Unknown [id number] 2.16.84 0.1.806676.3.579.2.593 1954 Unknown [id number] 2.16.84 0.1.824196.3.579.2.593 1954 Unknown [id number] 2.16.84 0.1.974868.3.579.2.593 1954 Unknown [id number] 2.16.84 0.1.212664.3.579.2.593 1954 Unknown [id number] 2.16.84 0.1.747264.3.579.2.593 1954 Unknown [id number] 2.16.84 0.1.527276.3.579.2.593 1954 Unknown [id number] 2.16.84 0.1.257249.3.579.2.593 1954 Unknown [id number] 2.16.84 0.1.930400.3.579.2.593 1954 Unknown [id number] 2.16.84 0.1.390365.3.579.2.593 1954 Unknown [id number] 2.16.84 0.1.528689.3.579.2.593 1954 Unknown [id number] 2.16.84 0.1.968612.3.579.2.593 1954 Unknown [id number] 2.16.84 0.1.770158.3.579.2.593 1954 Unknown [id number] 2.16.84 0.1.361414.3.579.2.593 1954 Unknown [id number] 2.16.84 0.1.003550.3.579.2.593 1954 Unknown [id number] 2.16.84 0.1.561966.3.579.2.593 1954 Unknown [id number] 2.16.84 0.1.639560.3.579.2.593 Summary Purpose Family History No Family History Records Found Advance Directives No Advanced Directives Records Found Additional Source Comments (unrecognized sect ion and content) No Status Records Found INFORMATION SOURCE (unrecogn ized section and content) DATE CREATED AUTHOR 04/08/2023 [facility] FOR RECORDS PERTAINING TO PATIENTS [...] BE BASED ON THE PRIMARY CLINICAL RECORDS. [facility] [employer] [facility]. provides no warranty or guarantee of the accuracy or completeness of information in this document.
--- NOTE | 2025-02-03 20:00 | ED.GENADUL1 ---
HPI HPI - General Adult General Chief complaint: Shortness of Breath/Dyspnea Stated complaint: DIFF BREATHING Time Seen by Provider: 02/03/25 19:49 Source: patient Mode of arrival: Wheelchair Limitations: no limitations History of Present Illness HPI narrative: 69-year-old male presents because he states he did not have his albuterol. He had trouble breathing at home. This is his fifth visit this month, the first 14 days of the month. He feels better now. He was here 2 days ago and was given a prescription for albuterol. He states it is the government's fault. He does not complain of chest pain or fever. Related Data Home Medications ?Medication ?Instructions ?Recorded ?Confirmed albuterol sulfate 90 mcg/actuation 2 inh inhalation Q6H PRN shortness 03/13/24 02/01/25 aerosol inhaler of breath or wheezing Previous Rx's ?Medication ?Instructions ?Recorded metformin 500 mg tablet 500 mg PO BID #30 tabs 11/11/24 tamsulosin 0.4 mg capsule (Flomax) 0.4 mg PO DAILY 7 days #7 caps 11/11/24 ipratropium 0.5 mg-albuterol 3 mg 3 ml inhalation Q4H PRN shortness 12/10/24 (2.5 mg base)/3 mL nebulization of breath #90 mL soln albuterol sulfate 2.5 mg/3 mL 2.5 mg (3 mL) inhalation Q6H PRN 01/24/25 (0.083 %) solution for nebulization shortness of breath or wheezing #90 mL losartan 100 mg tablet 100 mg PO DAILY #30 tabs 01/27/25 Allergies Allergy/AdvReac Type Severity Reaction Status Date / Time No Known Drug Allergies Allergy Verified 02/03/25 19:48 Opioid HPI Opioid Management Most Recent Opioid Data: Last Pain Scale 3 01/27/25 19:02 01/27/25 Last ORT Total Score 0 01/29/24 06:36 01/29/24 Last ORT Risk Category Low Risk 01/29/24 06:36 01/29/24 Review of Systems ROS Narrative A ten point review of systems is negative except as noted above. PFSH PFSH Medical History Hypokalemia ?E87.6 - Hypokalemia (ICD-10) New onset type 2 diabetes mellitus ?E11.9 - Type 2 diabetes mellitus without complications (ICD-10) Lower extremity edema ?R60.0 - Localized edema (ICD-10) Edema ?R60.9 - Edema, unspecified (ICD-10) Acute hyperglycemia ?R73.9 - Hyperglycemia, unspecified (ICD-10) Tobacco abuse ?Z72.0 - Tobacco use (ICD-10) HTN (hypertension) ?I10 - Essential (primary) hypertension (ICD-10) Community acquired pneumonia ?J18.9 - Pneumonia, unspecified organism (ICD-10) Chronic obstructive pulmonary disease ?J44.9 - Chronic obstructive pulmonary disease, unspecified (ICD-10) Acute exacerbation of chronic obstructive pulmonary disease (COPD) ?J44.1 - Chronic obstructive pulmonary disease with (acute) exacerbation (ICD-10) RLL pneumonia ?J18.9 - Pneumonia, unspecified organism (ICD-10) COPD (chronic obstructive pulmonary disease) ?J44.9 - Chronic obstructive pulmonary disease, unspecified (ICD-10) Surgical History Hx of tonsillectomy ?Z90.89 - Acquired absence of other organs (ICD-10) Family History Mother Family history of cancer Family history of hypertension Father Family history of cancer Social History Within the past year, how often did you have a drink containing alcohol: 4 or more times a week Within the past year, how many standard drinks containing alcohol did you have on a typical day: 3 or 4 Within the past year, how often did you have six or more drinks on one occasion: less than monthly Total score: 3 Score interpretation: A score of 4 or more indicates drinking is likely to affect patient's safety. Smoking status: Current every day smoker Non-prescribed substance use: cannabis (any form) Previous occupational history: retired Highest level of school completed/degree received: high school graduate Are you now , , , , never or living with a partner: In a typical week, how many times do you talk on the telephone with family, friends, or neighbors: twice per week How often do you get together with friends or relatives: once per week How often do you attend congregation or episcopal services: never Do you belong to any clubs or organizations such as congregation groups unions, fraternal or athletic groups, or school groups: no Total score: 1 Score interpretation: A score of less than or equal to 1 indicates the most socially isolated. Little interest or pleasure in doing things: not at all Feeling down, depressed, or hopeless: not at all Feel stressed/tense/nervous/anxious/difficulty sleeping: not at all Do you think of yourself as: straight/heterosexual Gender Identity: male Exam Narrative Exam Narrative: Nurses note and vital signs reviewed and patient is not hypoxic. General: The patient appears well and in no apparent distress. Patient is resting comfortably on cart. Skin: Warm, dry, no pallor noted. There is no rash noted. Head: Normocephalic, atraumatic Eye: Normal conjunctiva, no drainage Ears, Nose, Mouth, and Throat: oral mucosa is moist. Nares patent. Cardiovascular: Regular Rate and Rhythm Respiratory: Patient is in no distress, no accessory muscle use, lungs show a few faint rhonchi with good air movement. He is speaking in full sentences Back: non-tender, no CVA tenderness bilaterally to percussion. GI: Normal bowel sounds, no tenderness to palpation, no masses appreciated. No rebound, guarding, or rigidity noted. Musculoskeletal: The patient has no evidence of calf tenderness, no pitting edema, symmetrical pulses noted bilaterally Neurological: A&O, normal speech Psychiatric: Cooperative Constitutional Vital Signs, click to edit/add: Last Vital Signs Temp 99.0 F 02/03/25 19:49 Pulse 74 02/03/25 20:32 Resp 18 02/03/25 20:32 BP 190/105 H 02/03/25 19:49 Pulse Ox 94 L 02/03/25 20:32 O2 Del Method Room Air 02/03/25 20:32 O2 Flow Rate 2 02/03/25 20:17 Course Vital Signs Vital signs: Vital Signs Temperature 99.0 F 02/03/25 19:49 Pulse Rate 81 02/03/25 19:49 Respiratory Rate 18 02/03/25 19:49 Blood Pressure 190/105 H 02/03/25 19:49 Pulse Oximetry 97 03/14/25 19:49 Oxygen Delivery Method Room Air 02/03/25 19:49 Temperature 99.0 F 02/03/25 19:49 Pulse Rate 74 02/03/25 20:32 Respiratory Rate 18 02/03/25 20:32 Blood Pressure 190/105 H 02/03/25 19:49 Pulse Oximetry 94 L 02/03/25 20:32 Oxygen Delivery Method Room Air 02/03/25 20:32 Oxygen Delivery Flow Rate 2 02/03/25 20:17 Medical Decision Making MDM Narrative Medical decision making narrative: He was given an albuterol treatment here. I had a discussion with him regarding his safety at home and whether or not an ECF would be appropriate. He states he has thought about that in the past and he is going to talk to his daughters about it. Differential Diagnosis Differential Diagnosis: COPD exacerbation, malingering, secondary gain Discharge Plan Discharge Chief Complaint: Shortness of Breath/Dyspnea Clinical Impression: Acute exacerbation of chronic obstructive pulmonary disease Patient Disposition: Home, Self-Care Time of Disposition Decision: 20:03 Condition: Good Mode of Transportation: Private Vehicle Prescriptions / Home Meds: No Action albuterol sulfate 90 mcg/actuation HFA aerosol inhaler 2 inh inhalation Q6H PRN (Reason: shortness of breath or wheezing) albuterol sulfate 2.5 mg /3 mL (0.083 %) solution for nebulization 2.5 mg inhalation Q6H PRN (Reason: shortness of breath or wheezing) Qty: 90 0RF tamsulosin [Flomax] 0.4 mg capsule 0.4 mg PO DAILY 7 Days Qty: 7 0RF metformin 500 mg tablet 500 mg PO BID Qty: 30 0RF ipratropium-albuterol 0.5 mg-3 mg(2.5 mg base)/3 mL solution for nebulization 3 ml inhalation Q4H PRN (Reason: shortness of breath) Qty: 90 0RF Rx Instructions: until breathing returns to target peak flow/parameters losartan 100 mg tablet 100 mg PO DAILY Qty: 30 0RF Print Language: Slovenian Instructions: COPD (Chronic Obstructive Pulmonary Disease) (ED) Referrals: SERG DUENAS [Primary Care Provider] - 1 week
[2025-02-03 20:17] VITALS: O2SAT 96
[2025-02-03] MEDS: ALBUTEROL SULFATE 2.5 MG/3 ML VIAL NEB IH (20:29)
[2025-02-03 20:32] VITALS: PULSE 74; O2SAT 94
[2025-02-03] MEDS: ALBUTEROL SULFATE 2.5 MG/3 ML VIAL NEB 5 MG IH (20:35)
== END 2025-02-03 20:51 | disposition home or self-care (01) ==
PROVIDERS: Emergency Provider Emergency Medicine
DX: J44.1 Chronic obstructive pulmonary disease with (acute) exacerbation (principal); F17.200 Nicotine dependence, unspecified, uncomplicated; R06.02 Shortness of breath
CPT/HCPCS: 94640; 99284

== ENCOUNTER 2025-02-05 14:49 | Emergency (ER) | payer MEDICARE, SELFPAY ==
[2025-02-05 14:53] VITALS: BP 196/92; PULSE 82; TEMP 36.8; O2SAT 95; BMI 25.1
--- OUTSIDE RECORDS SUMMARY | 2025-02-05 14:55 | XMS_ITS | CCD ---
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 Garima Pulliam Basophils/100 WBC (Bld) 0.3 % Normal 0.2-2.0 [facility] Comment on above: Performed By: #### C BC ####[facility] Qedhqkzuis[address] [place] [address]DrAdalberto Pulliam EO # 0.3 103/ul Normal 0.0-0.7 [facility] Comment on above: Performed By: #### C BC ####[facility] [address]fw[address] [place], [place] [address]Dr. Garima Pulliam Eosinophils/100 WBC (Bld) 2.8 % Normal 0.9-7.0 [facility] Comment on above: Performed By: #### C BC ####[facility] [address]qpxyeogbr[address] [place] [address]Dr. Garima Pulliam Erythrocyte distribution width (RBC) [Ratio] 13.4 % Normal 11.0-15.0 [facility] Comment on above: Performed By: #### C BC ####[facility] [address] [place] [address]Dr. Garima Pulliam Hematocrit (Bld) [Volume fraction] 45.7 % Normal 42.0-54.0 [facility] Comment on above: Performed By: #### C BC ####[facility] [address]ne[address] [place] [address]Dr. Garima Pulliam Hemoglobin (Bld) [Mass/Vol] 15.2 g/dL Normal 14.0-18.0 [facility] Comment on above: Performed By: #### C BC ####[facility] [address]xcw[address]kus[address] [place] [address]Dr. Garima Pulliam IG # 0.02 10e3/ul Normal 0.00-0.03 [facility] Comment on above: Performed By: #### C BC ####[facility] Zyrnviihmb[address] [place] [address]Dr. Garima Pulliam IG % 0.2 % Normal 0.0-0.5 [facility] Comment on above: Performed By: #### C BC ####[facility] [address]jzxbkpd[address] [place] [address]Dr. Garima Pulliam LYMPH # 2.1 103/ul Normal 1.2-3.8 [facility] Comment on above: Performed By: #### C BC ####[facility] Suiqhyckbu[address] [place] [address]Dr. Garima Pulliam Lymphocytes/100 WBC (Bld) 23.7 % Normal 20.5-60.0 [facility] Comment on above: Performed By: #### C BC ####[facility] Ecfsjmdaid[address] [place] [address]Dr. Garima Heraclio MANUAL DIFF REQ NO Normal [facility] Comment on above: Performed By: #### C BC ####[facility] Qpjmlxtioy[address] [place] [address]Dr. Garima Pulliam MCH (RBC) [Entitic mass] 30.4 pg Normal 25.9-34.0 [facility] Comment on above: Performed By: #### C BC ####[facility] I[address]oympffi[address] [place] [address]Dr. Garima Heraclio MCHC (RBC) [Mass/Vol] 33.3 g/dL Normal 29.9-35.2 [facility] Comment on above: Performed By: #### C BC ####[facility] M[address]fbkxl[address] [place], [place] [address]Dr. Chapisrenu Pulliam MCV (RBC) [Entitic vol] 91.4 fL Normal 80.0-94.0 [facility] Comment on above: Performed By: #### C BC ####[facility] Lsryawrvzp[address] [place], [place] [address]Dr. Garima Heraclio MONO # 0.7 103/ul Normal 0.3-0.8 [facility] Comment on above: Performed By: #### C BC ####[facility] Dztpvybulj[address] [place], [place] [address]Dr. Chapisrenu Pulliam Monocytes/100 WBC (Bld) 8.3 % Normal 1.7-12.0 [facility] Comment on above: Performed By: #### C BC ####[facility] Adnsumbwzt[address] [place] [address]Dr. Chapisrenu Heraclio NEUT # 5.8 103/ul Normal 1.4-6.5 [facility] Comment on above: Performed By: #### C BC ####[facility] Aixdjjzbfj[address] [place], [place] [address]Dr. Garima Pulliam Neutrophils/100 WBC (Bld) 64.7 % Normal 43.0-75.0 [facility] Comment on above: Performed By: #### C BC ####[facility] [address]chlqqktuj[address] [place] [address]Dr. Garima Pulliam Platelet mean volume (Bld) [Entitic vol] 8.6 fL Critically low 9.5-13.5 [facility] Comment on above: Performed By: #### C BC ####[facility] Qcbglxpbgt[address] [place] [address]Dr. Garima Pulliam PLT 230 103/ul Normal 150-450 [facility] Comment on above: Performed By: #### C BC ####[facility] Gsltokkevc[address] [place] [address]Dr. Chapisrenu Heraclio RBC 5.00 106/ul Normal 4.70-6.10 [facility] Comment on above: Performed By: #### C BC ####[facility] Rlxobepuse[address] [place] [address]Dr. Garima Heraclio WBC 9.0 103/ul Normal 4.0-11.0 [facility] Comment on above: Performed By: #### C BC ####[facility] Qvwrodadzo26[address] [place] [address]Dr. Garima Pulliam MAGNESIUMon 04-04-2023 Magnesium [Mass/Vol] 1.8 mg/dL Normal 1.8-2.4 [facility] Comment on above: Performed By: #### M G ####[facility] [address]hpjl[address] [place] [address]Dr. Chapisrenu Pulliam PROF 14(COMP METB)on 023 Albumin [Mass/Vol] 3.8 g/dL Normal 3.4-5.0 [facility] Comment on above: Performed By: #### C MP ####[facility] [address]qcqxhomu[address] [place] [address]Dr. Garima Pulliam Albumin/Globulin [Mass ratio] 1.2 {ratio} Normal [facility] Comment on above: Performed By: #### C MP ####[facility] Lwmhetwvod[address] [place] [address]Dr. Garima Heraclio ALP [Catalytic activity/Vol] 84 U/L Normal 46-116 [facility] Comment on above: Performed By: #### C MP ####[facility] Egkoymvzyq[address] [place] [phone]. Garima Pulliam ALT [Catalytic activity/Vol] 31 U/L Normal 16-63 [facility] Comment on above: Performed By: #### C MP ####[facility] Abzdxyqfux[address] [place] [address]Dr. Garima Pulliam Anion gap [Moles/Vol] 12.2 mmol/L Normal [facility] Comment on above: Performed By: #### C MP ####[facility] Ndltpztmno038[address] [place] [address]Dr. Garima Pulliam AST [Catalytic activity/Vol] 23 U/L Normal 15-37 [facility] Comment on above: Performed By: #### C MP ####[facility] Lxjtguwmnh[address] [place], [place] [address]Dr. Garima Pulliam Bilirubin [Mass/Vol] 0.5 mg/dL Normal 0.2-1.0 [facility] Comment on above: Performed By: #### C MP ####[facility] C[address]muvfftqb[address] [place], [place] [address]Dr. Garima Pulliam Calcium [Mass/Vol] 9.2 mg/dL Normal 8.5-10.1 [facility] Comment on above: Performed By: #### C MP ####[facility] Alcywtoyzl[address] [place], [place] [address]Dr. Garima Pulliam Chloride [Moles/Vol] 103 mmol/L Normal 98-107 [facility] Comment on above: Performed By: #### C MP ####[facility] Aqssyojdof[address] [place] [address]Dr. Garima Pulliam CO2 [Moles/Vol] 28.5 mmol/L Normal 21.0-32.0 [facility] Comment on above: Performed By: #### C MP ####[facility] Ikumakojmo[address] [place], [place] [address]Dr. Garima Pulliam Creatinine [Mass/Vol] 0.74 mg/dL Normal 0.70-1.30 [facility] Comment on above: Performed By: #### C MP ####[facility] [address]uxedrvz[address] [place] [phone]. Garima Pulliam EGFR-AF MOROCCAN >60 Normal >=60 [facility] Comment on above: Performed By: #### C MP ####[facility] Tw[address]ucbnam[address] [place] [address]Dr. Garima Heraclio EGFR-NON AF MOROCCAN >60 Normal >=60 [facility] Comment on above: Performed By: #### C MP ####[facility] Rfrpheixvr36[address] [place] [phone]. Garima Heraclio Globulin (S) [Mass/Vol] 3.1 g/dL Normal [facility] Comment on above: Performed By: #### C MP ####[facility] Zuebmmcikn[address] [place], [place] [address]Dr. Garima Heraclio Glucose [Mass/Vol] 93 mg/dL Normal 74-106 [facility] Comment on above: Performed By: #### C MP ####[facility] Onxdzlvtgo[address] [place], [place] [address]Dr. Garima Heraclio Potassium [Moles/Vol] 3.7 mmol/L Normal 3.5-5.1 [facility] Comment on above: Performed By: #### C MP ####[facility] Zbhcajnsuf[address] [place], [place] [address]Dr. Garima Heraclio Protein [Mass/Vol] 6.9 g/dL Normal 6.4-8.2 [facility] Comment on above: Performed By: #### C MP ####[facility] Ncsyobowux[address] [place], [place] [address]Dr. Garima Heraclio Sodium [Moles/Vol] 140 mmol/L Normal 136-145 [facility] Comment on above: Performed By: #### C MP ####[facility] Rghqgbksyg[address] [place], [place] [address]Dr. Garima Pulliam Urea nitrogen [Mass/Vol] 8.0 mg/dL Normal 7.0-18.0 [facility] Comment on above: Performed By: #### C MP ####[facility] Avmkuqstiy[address] [place], [place] [address]Dr. Garima Pulliam Urea nitrogen/Creatinine [Mass ratio] 10.8 mg/mg Normal [facility] Comment on above: Performed By: #### C DAVID ####[facility] E[address]niwcy[address] [place] [address]Dr. Garima Pulliam AMMONIAon 03-30-2023 Ammonia (P) [Moles/Vol] 11 umol/L Normal 11-32 [facility] Comment on above: Performed By: #### A MM ####[facility] Ynyixzsx[address] [place], [place] [address]Dr. Garima Pulliam CARDIAC NASH ADMITon 023 CK [Catalytic activity/Vol] 232 U/L Normal 39-308 [facility] Comment on above: Performed By: #### C NANCY HERNANDEZ ####[facility] [address]oweqpz[address] [place] [address]Dr. Chapisrenu Pulliam CK.MB [Mass/Vol] 4.83 ng/mL Critically high <=3.60 [facility] Comment on above: Performed By: #### C NANCY HERNANDEZ ####[facility] [address]ytevgqg[address] [place], [place] [address]Dr. Gariam Pulliam HSTROP 10.5 pg/mL Normal 4.0-76.1 [facility] Comment on above: Result Comment: CUT- OFF POINTS HAVE BEEN ESTABLISHED BASED ON THE FOURTH UNIVERSAL DEFINITIONS OF MYOCARDIALINFARCTION. THE UPPER REFERENCE LIMIT (URL) OF TROPONIN, DEFINED THE 99TH PERCENTILE OFcTnI DISTRIBUTION IN A REFERENCE POPULATION, HAS BEEN CONFIRMED THE DECISION THRESHOLDFOR [place] DIAGNOSIS. Performed By: #### C NANCY HERNANDEZ ####[facility] Inbzavvrjm[address] [place], [place] [address]Dr. Garima Heraclio DORIS 79 ng/mL Normal 16-96 [facility] Comment on above: Performed By: #### C NANCY HERNANDEZ ####[facility] Mrimseshql[address] [place], [place] [address]Dr. Garima Heraclio CBC AUTO DIFFon 03-30-2023 BASO # 0.0 103/ul Normal 0.0-0.1 [facility] Comment on above: Performed By: #### C BC ####[facility] [address]zs[address] [place] [phone]. Garima Pulliam Basophils/100 WBC (Bld) 0.1 % Critically low 0.2-2.0 [facility] Comment on above: Performed By: #### C BC ####[facility] Dypvfkegns[address]2 [place] [phone]. Garima Pulliam EO # 0.3 103/ul Normal 0.0-0.7 [facility] Comment on above: Performed By: #### C BC ####[facility] [address] [place], [place] [address]Dr. Garima Pulliam Eosinophils/100 WBC (Bld) 3.3 % Normal 0.9-7.0 [facility] Comment on above: Performed By: #### C BC ####[facility] [address]xrfe[address] [place], [place] [address]Dr. Garima Pulliam Erythrocyte distribution width (RBC) [Ratio] 13.5 % Normal 11.0-15.0 [facility] Comment on above: Performed By: #### C BC ####[facility] [address] [place], [place] [address]Dr. Garima Pulliam Hematocrit (Bld) [Volume fraction] 42.9 % Normal 42.0-54.0 [facility] Comment on above: Performed By: #### C BC ####[facility] [address] [place], [place] [address]Dr. Garima Pulliam Hemoglobin (Bld) [Mass/Vol] 13.9 g/dL Critically low 14.0-18.0 [facility] Comment on above: Performed By: #### C BC ####[facility] [address]udjnxbdme[address] [place] [phone]. Garima Pulliam IG # 0.01 10e3/ul Normal 0.00-0.03 [facility] Comment on above: Performed By: #### C BC ####[facility] [address]fs[address]ix[address] [place], [place] [address]Dr. Garima Pulilam IG % 0.1 % Normal 0.0-0.5 [facility] Comment on above: Performed By: #### C BC ####[facility] [address] [place] [phone]. Garima Pulliam LYMPH # 1.7 103/ul Normal 1.2-3.8 [facility] Comment on above: Performed By: #### C BC ####[facility] Ufpwtfyiiq7499 [place], [place] [address]Vk. Garima Pulliam Lymphocytes/100 WBC (Bld) 22.8 % Normal 20.5-60.0 [facility] Comment on above: Performed By: #### C BC ####[facility] [address]xdxkmji74[address] [place] [phone]. Garima Heraclio MANUAL DIFF REQ NO Normal [facility] Comment on above: Performed By: #### C BC ####[facility] Tanzeobcms[address] [place] [phone]. Garima Heraclio MCH (RBC) [Entitic mass] 30.5 pg Normal 25.9-34.0 [facility] Comment on above: Performed By: #### C BC ####[facility] Xagkdekbeg[address] [place] [id number]. Garima Pulliam MCHC (RBC) [Mass/Vol] 32.4 g/dL Normal 29.9-35.2 [facility] Comment on above: Performed By: #### C BC ####[facility] Vfncewxvzy[address] [place] [phone]. Garima Heraclio MCV (RBC) [Entitic vol] 94.1 fL Critically high 80.0-94.0 [facility] Comment on above: Performed By: #### C BC ####[facility] Yvfaajprfy[address] [place] [id number]. Garima Heraclio MONO # 0.7 103/ul Normal 0.3-0.8 [facility] Comment on above: Performed By: #### C BC ####[facility] Vdofqwyrqb3596 [place] [phone]. Garima Heraclio Monocytes/100 WBC (Bld) 8.6 % Normal 1.7-12.0 [facility] Comment on above: Performed By: #### C BC ####[facility] Ekqystefav[address] [place] [phone]. Garima Pulliam NEUT # 4.9 103/ul Normal 1.4-6.5 [facility] Comment on above: Performed By: #### C BC ####[facility] N[address]ogbefean[address] [place] [phone]. Garima Pulliam Neutrophils/100 WBC (Bld) 65.1 % Normal 43.0-75.0 [facility] Comment on above: Performed By: #### C BC ####[facility] Whocggyccb65[address] [place] [phone]. Garima Pulliam Platelet mean volume (Bld) [Entitic vol] 8.5 fL Critically low 9.5-13.5 [facility] Comment on above: Performed By: #### C BC ####[facility] Izndhfzdoy[address] [place] [phone]. Garima Pulliam PLT 219 103/ul Normal 150-450 [facility] Comment on above: Performed By: #### C BC ####[facility] Abijpmzcmc9[address] [place] [phone]. Garima Pulliam RBC 4.56 106/ul Critically low 4.70-6.10 [facility] Comment on above: Performed By: #### C BC ####[facility] Ojexwaketo[address] [place] [phone]. Garima Pulliam WBC 7.6 103/ul Normal 4.0-11.0 [facility] Comment on above: Performed By: #### C BC ####[facility] Wbqilnvmsw0584 [place] [phone]. Garima Pulliam LACTATE/LACTIC ACIDon 2022 Lactate [Moles/Vol] 1.2 mmol/L Normal 0.4-2.0 [facility] Comment on above: Performed By: #### L ACT ####[facility] Sipqocmyso[address] [place] [id number]. Garima Pulliam MAGNESIUMon 03-30-2023 Magnesium [Mass/Vol] 1.8 mg/dL Normal 1.8-2.4 [facility] Comment on above: Performed By: #### M G ####[facility] [address]uyumpfdc[address] [place] [address]Dr. Garima Pulliam PROF 14(COMP METB)on 023 Albumin [Mass/Vol] 3.5 g/dL Normal 3.4-5.0 [facility] Comment on above: Performed By: #### C DAVID, CMAANA ROSA ####[facility] Uptludmuou[address] [place] [address]Dr. Garima Pulliam Albumin/Globulin [Mass ratio] 1.2 {ratio} Normal [facility] Comment on above: Performed By: #### C DAVID, CMAANA ROSA ####[facility] [address]rmnppollb[address] [place] [address]Dr. Garima Pulliam ALP [Catalytic activity/Vol] 85 U/L Normal 46-116 [facility] Comment on above: Performed By: #### C DAVID, CMAANA ROSA ####[facility] [address] [place], [place] [address]Dr. Garima Pulliam ALT [Catalytic activity/Vol] 29 U/L Normal 16-63 [facility] Comment on above: Performed By: #### C DAVID, CMAANA ROSA ####[facility] Zqvwpupauj[address] [place] [address]Dr. Garima Pulliam Anion gap [Moles/Vol] 8.0 mmol/L Normal [facility] Comment on above: Performed By: #### C DAVID, CMAANA ROSA ####[facility] Bexusuryiz[address] [place] [address]Dr. Garima Pulliam AST [Catalytic activity/Vol] 18 U/L Normal 15-37 [facility] Comment on above: Performed By: #### C DAVID, CMADM ####[facility] Noftgrjjyv[address] [place] [address]Dr. Garima Pulliam Bilirubin [Mass/Vol] 0.4 mg/dL Normal 0.2-1.0 [facility] Comment on above: Performed By: #### C DAVID, CMADM ####[facility] Nhcvfjfcvh[address] [place] [address]Dr. Garima Pulliam Calcium [Mass/Vol] 8.8 mg/dL Normal 8.5-10.1 [facility] Comment on above: Performed By: #### C DAVID, NANCY ####[facility] Lswcbesrci[address] [place] [address]Dr. Chapisrenu Pulliam Chloride [Moles/Vol] 108 mmol/L Critically high 98-107 [facility] Comment on above: Performed By: #### C DAVDI, NANCY ####[facility] Hpzvqbmksw70[address] [place] [address]Dr. Garima Pulliam CO2 [Moles/Vol] 29.6 mmol/L Normal 21.0-32.0 [facility] Comment on above: Performed By: #### C NANCY HERNANDEZ ####[facility] [address]mc[address]evu[address] [place], [place] [address]Dr. Garima Pulliam Creatinine [Mass/Vol] 0.77 mg/dL Normal 0.70-1.30 [facility] Comment on above: Performed By: #### C NANCY HERNANDEZ ####[facility] Edgsftpqdf[address] [place], [place] [address]Dr. Garima Heraclio EGFR-AF MOROCCAN >60 Normal >=60 [facility] Comment on above: Performed By: #### C NANCY HERNANDEZ ####[facility] [address]zxjkdocn[address] [place], [place] [address]Dr. Garima Heraclio EGFR-NON AF MOROCCAN >60 Normal >=60 [facility] Comment on above: Performed By: #### C NANCY HERNANDEZ ####[facility] Hynpzktqiq36[address] [place] [address]Dr. Garima Pulliam Globulin (S) [Mass/Vol] 2.8 g/dL Normal [facility] Comment on above: Performed By: #### C NANCY HERNANDEZ ####[facility] K[address]jjpdqpv[address] [place] [address]Dr. Garima Pulliam Glucose [Mass/Vol] 207 mg/dL Critically high 74-106 [facility] Comment on above: Performed By: #### C NANCY HERNANDEZ ####[facility] [address]xuh[address]pcqx[address] [place], [place] [address]Dr. Garima Pulliam Potassium [Moles/Vol] 4.6 mmol/L Normal 3.5-5.1 [facility] Comment on above: Performed By: #### C DAVID, NANCY ####[facility] [address]ifieoizfm[address] [place] [address]Dr. Garima Pulliam Protein [Mass/Vol] 6.3 g/dL Critically low 6.4-8.2 [facility] Comment on above: Performed By: #### C DAVID, NANCY ####[facility] Oov[address]ccayn[address] [place] [address]Dr. Garima Pulliam Sodium [Moles/Vol] 141 mmol/L Normal 136-145 [facility] Comment on above: Performed By: #### C DAVID, NANCY ####[facility] Kbfxguxdfw25[address] [place] [address]Dr. Garima Pulliam Urea nitrogen [Mass/Vol] 9.0 mg/dL Normal 7.0-18.0 [facility] Comment on above: Performed By: #### C DAVID, NANCY ####[facility] Xnmxsejvhi[address] [place] [address]Dr. Garima Pulliam Urea nitrogen/Creatinine [Mass ratio] 11.7 mg/mg Normal [facility] Comment on above: Performed By: #### C DAVID, NANCY ####[facility] Kcpkfbegup[address] [place] [address]Dr. Garima Pulliam XR CHEST 1 Von 03-30-2023 XR CHEST 1 V Normal [facility] BNPon 03-27-2023 Natriuretic peptide B (Bld) [Mass/Vol] 251.0 pg/mL Normal <=900.0 [facility] Comment on above: Performed By: #### C MP, BNP, LIPID ####[facility] [address]ppqukys[address] [place] [address]Dr. Garima Pulliam GLYCOHEMOGLOBIN A1Con 2022 ADA RECOMMENDATION SEE BELOW Normal [facility] Comment on above: Result Comment: ADA RECOMMENDED LIMIT 4.0 - 6.0 ADA THERAPEUTIC TARGET < 7.0 ACTION SUGGESTED > 7.0 Performed By: #### A 1C ####[facility] Nfeyprybob[address] [place] [address]Dr. Garima Pulliam Glucose [Mass/Vol] 180 mg/dL Normal [facility] Comment on above: Performed By: #### A 1C ####[facility] Dqegxbqm[address] [place], [place] [address]Dr. Chapisrenu Pulliam HbA1c (Bld) [Mass fraction] 7.9 % Critically high 4.5-6.2 [facility] Comment on above: Performed By: #### A 1C ####[facility] [address]kpgqfhz[address] [place], [place] [address]Dr. Garima Pulliam HEMOGRAM AND PLATELon 2022 Hematocrit (Bld) [Volume fraction] 45.7 % Normal 42.0-54.0 [facility] Comment on above: Performed By: #### H H ####[facility] [address]yjp[address]zf[address] [place], [place] [address]Dr. Garima Pulliam Hemoglobin (Bld) [Mass/Vol] 15.1 g/dL Normal 14.0-18.0 [facility] Comment on above: Performed By: #### H H ####[facility] Z[address]av[address] [place], [place] [address]Dr. Garima Pulliam MCH (RBC) [Entitic mass] 30.0 pg Normal 25.9-34.0 [facility] Comment on above: Performed By: #### H H ####[facility] [address]zoapwhkkg[address] [place], [place] [address]Dr. Garima Pulliam MCHC (RBC) [Mass/Vol] 33.0 g/dL Normal 29.9-35.2 [facility] Comment on above: Performed By: #### H H ####[facility] [address]sezp[address] [place], [place] [address]Dr. Garima Pulliam MCV (RBC) [Entitic vol] 90.7 fL Normal 80.0-94.0 [facility] Comment on above: Performed By: #### H H ####[facility] [address] [place], [place] [address]Dr. Garima Pulliam PLT 222 103/ul Normal 150-450 [facility] Comment on above: Performed By: #### H H ####[facility] [address] [place] [id number]. Garima Pulliam RBC 5.04 106/ul Normal 4.70-6.10 [facility] Comment on above: Performed By: #### H H ####[facility] Oktyublfqp[address] [place] [id number]. Garima Pulliam WBC 8.7 103/ul Normal 4.0-11.0 [facility] Comment on above: Performed By: #### H H ####[facility] Ezzvelwkmq[address] [place] [id number]. Garima Pulliam LIPID PROFILEon 03-27-2023 CHOL-HDL RATIO NORM SEE BELOW Normal [facility] Comment on above: Result Comment: 3.3 - 4.4 LOW RISK 4.4 - 7.1 AVERAGE RISK 7.1 - 11.0 MODERATE RISK >11.0 HIGH RISK Performed By: #### C MP, BNP, LIPID ####[facility] [address] [place] [address]Dr. Garima Pulliam Cholesterol [Mass/Vol] 113 mg/dL Normal <=200 [facility] Comment on above: Performed By: #### C MP, BNP, LIPID ####[facility] [address]mufpx[address] [place] [address]Dr. Garima Pulliam Cholesterol in HDL [Mass/Vol] 51 mg/dL Normal 40-60 [facility] Comment on above: Performed By: #### C MP, BNP, LIPID ####[facility] [address] [place] [address]Dr. Garima Pulliam Cholesterol in LDL [Mass/Vol] 49.8 mg/dL Normal [facility] Comment on above: Performed By: #### C MP, BNP, LIPID ####[facility] Npppq[address]un[address] [place] [address]Dr. Garima Pulliam Cholesterol.total/Cho lesterol in HDL [Mass ratio] 2.2 {ratio} Normal [facility] Comment on above: Performed By: #### C MP, BNP, LIPID ####[facility] Em[address]fs[address] [place] [address]Dr. Garima Pulliam HDL NORMAL > or = 60 mg/dl - LOW CARDIOVASCULAR RISK <40 mg/dl - HIGH CARDIOVASCULAR RISK Normal [facility] Comment on above: Performed By: #### C MP, BNP, LIPID ####[facility] [address]ulfbdb[address] [place] [address]Dr. Garima Pulliam LDL CALC NORMAL SEE BELOW Normal [facility] Comment on above: Result Comment: <100 mg/dl OPTIMAL 100 - 129 mg/dl NEAR OR ABOVE OPTIMAL 130 - 159 mg/dl BORDERLINE HIGH 160 - 189 mg/dl HIGH >190 mg/dl VERY HIGH Performed By: #### C MP, BNP, LIPID ####[facility] [address]uz[address] [place] [address]Dr. Garima Pulliam Triglyceride [Mass/Vol] 61 mg/dL Normal <=150 [facility] Comment on above: Performed By: #### C MP, BNP, LIPID ####[facility] [address]ipbzqpkum[address] [place] [address]Dr. Garima Pulliam VLDL CALC 12.2 mg/dL Normal [facility] Comment on above: Performed By: #### C MP, BNP, LIPID ####[facility] Qgwlwjtmpw[address] [place] [address]Dr. Garima Pulliam PROF 14(COMP METB)on 023 Albumin [Mass/Vol] 3.5 g/dL Normal 3.4-5.0 [facility] Comment on above: Performed By: #### C MP, BNP, LIPID ####[facility] Piqcswbfqe[address] [place] [address]Dr. Garima Pulliam Albumin/Globulin [Mass ratio] 1.2 {ratio} Normal [facility] Comment on above: Performed By: #### C MP, BNP, LIPID ####[facility] Txjz[address]zj[address] [place] [address]Dr. Garima Pulliam ALP [Catalytic activity/Vol] 82 U/L Normal 46-116 [facility] Comment on above: Performed By: #### C MP, BNP, LIPID ####[facility] Harxmljvry[address] [place] [address]Dr. Garima Pulliam ALT [Catalytic activity/Vol] 33 U/L Normal 16-63 [facility] Comment on above: Performed By: #### C MP, BNP, LIPID ####[facility] Wuj[address]nglys[address] [place] [address]Dr. Garima Pulliam Anion gap [Moles/Vol] 9.9 mmol/L Normal [facility] Comment on above: Performed By: #### C MP, BNP, LIPID ####[facility] Ynscrcfhrh[address] [place] [address]Dr. Garima Pulliam AST [Catalytic activity/Vol] 24 U/L Normal 15-37 [facility] Comment on above: Performed By: #### C MP, BNP, LIPID ####[facility] Zurkuirfne[address] [place] [address]Dr. Garima Pulliam Bilirubin [Mass/Vol] 0.6 mg/dL Normal 0.2-1.0 [facility] Comment on above: Performed By: #### C MP, BNP, LIPID ####[facility] Rpneidvzqm[address] [place] [address]Dr. Garima Pulliam Calcium [Mass/Vol] 9.2 mg/dL Normal 8.5-10.1 [facility] Comment on above: Performed By: #### C MP, BNP, LIPID ####[facility] [address]hbyk[address] [place] [address]Dr. Garima Pulliam Chloride [Moles/Vol] 106 mmol/L Normal 98-107 [facility] Comment on above: Performed By: #### C MP, BNP, LIPID ####[facility] [address]zvxrzwyql[address] [place] [address]Dr. Garima Pulliam CO2 [Moles/Vol] 32.3 mmol/L Critically high 21.0-32.0 [facility] Comment on above: Performed By: #### C MP, BNP, LIPID ####[facility] Rrgxtlelvx[address] [place] [address]Dr. Garima Pulliam Creatinine [Mass/Vol] 0.70 mg/dL Normal 0.70-1.30 [facility] Comment on above: Performed By: #### C MP, BNP, LIPID ####[facility] [address]ug[address]unxew[address] [place] [phone]. Garima Pulliam EGFR-AF MOROCCAN >60 Normal >=60 [facility] Comment on above: Performed By: #### C MP, BNP, LIPID ####[facility] Fkpkjjealg22[address] [place] [phone]. Garima Pulliam EGFR-NON AF MOROCCAN >60 Normal >=60 [facility] Comment on above: Performed By: #### C MP, BNP, LIPID ####[facility] Oxfzznzgsg[address] [place] [address]Dr. Garima Pulliam Globulin (S) [Mass/Vol] 2.9 g/dL Normal [facility] Comment on above: Performed By: #### C MP, BNP, LIPID ####[facility] Esfdxppjic[address] [place] [address]Dr. Garima Pulliam Glucose [Mass/Vol] 111 mg/dL Critically high 74-106 [facility] Comment on above: Performed By: #### C MP, BNP, LIPID ####[facility] Urfgyqxuye[address] [place] [address]Dr. Garima Pulliam Potassium [Moles/Vol] 4.2 mmol/L Normal 3.5-5.1 [facility] Comment on above: Performed By: #### C MP, BNP, LIPID ####[facility] Dfyuvpwwto35[address] [place] [address]Dr. Garima Pulliam Protein [Mass/Vol] 6.4 g/dL Normal 6.4-8.2 [facility] Comment on above: Performed By: #### C MP, BNP, LIPID ####[facility] Pcfxnpzdrz27[address] [place] [address]Dr. Garima Pulliam Sodium [Moles/Vol] 144 mmol/L Normal 136-145 [facility] Comment on above: Performed By: #### C MP, BNP, LIPID ####[facility] Xmmwotfkrz[address] [place] [address]Dr. Garima Pulliam Urea nitrogen [Mass/Vol] 7.0 mg/dL Normal 7.0-18.0 [facility] Comment on above: Performed By: #### C MP, BNP, LIPID ####[facility] F[address]rc[address]ri[address] [place], [place] [address]Dr. Garima Pulliam Urea nitrogen/Creatinine [Mass ratio] 10.0 mg/mg Normal [facility] Comment on above: Performed By: #### C MP, BNP, LIPID ####[facility] Agewfomzzt[address] [place], [place] [address]Dr. Garima Pulliam BNPon 03-22-2023 Natriuretic peptide B (Bld) [Mass/Vol] 103.0 pg/mL Normal <=900.0 [facility] Comment on above: Performed By: #### B MODEL DRESSER, BMP ####[facility] Xkqfijyudb[address] [place], [place] [address]Dr. Garima Pulliam CBC AUTO DIFFon 03-22-2023 BASO # 0.0 103/ul Normal 0.0-0.1 [facility] Comment on above: Performed By: #### C BC ####[facility] Uvkpyq[address] [place], [place] [address]Dr. Garima Heraclio Basophils/100 WBC (Bld) 0.3 % Normal 0.2-2.0 [facility] Comment on above: Performed By: #### C BC ####[facility] Yeudjbxzoy[address] [place], [place] [address]Dr. Garima Pulliam EO # 0.2 103/ul Normal 0.0-0.7 [facility] Comment on above: Performed By: #### C BC ####[facility] Z[address]wnq[address]cls[address] [place], [place] [address]Dr. Garima Pulliam Eosinophils/100 WBC (Bld) 2.2 % Normal 0.9-7.0 [facility] Comment on above: Performed By: #### C BC ####[facility] Cphyxfipxs[address] [place], [place] [address]Dr. Garima Pulliam Erythrocyte distribution width (RBC) [Ratio] 13.2 % Normal 11.0-15.0 [facility] Comment on above: Performed By: #### C BC ####[facility] Emlhnxnfyf28[address] [place] [phone]. Garima Pulliam Hematocrit (Bld) [Volume fraction] 43.4 % Normal 42.0-54.0 [facility] Comment on above: Performed By: #### C BC ####[facility] Rvdfrxirip3[address] [place] [address]Dr. Garima Heraclio Hemoglobin (Bld) [Mass/Vol] 14.3 g/dL Normal 14.0-18.0 [facility] Comment on above: Performed By: #### C BC ####[facility] Qtxmgwrmpy46[address] [place] [address]Dr. Garima Pulliam IG # 0.02 10e3/ul Normal 0.00-0.03 [facility] Comment on above: Performed By: #### C BC ####[facility] Bbgxjsmufs[address] [place] [address]Dr. Garima Pulliam IG % 0.3 % Normal 0.0-0.5 [facility] Comment on above: Performed By: #### C BC ####[facility] Zwxjnneekm[address] [place] [address]Dr. Chapisrenu Pulliam LYMPH # 2.0 103/ul Normal 1.2-3.8 [facility] Comment on above: Performed By: #### C BC ####[facility] Koytvunoqw34[address] [place] [address]Dr. Chapisrenu Pulliam Lymphocytes/100 WBC (Bld) 24.8 % Normal 20.5-60.0 [facility] Comment on above: Performed By: #### C BC ####[facility] Juptagggbf[address] [place] [address]Dr. Chapisrenu Pulliam MANUAL DIFF REQ NO Normal [facility] Comment on above: Performed By: #### C BC ####[facility] Vbgyeferlt8345 [place] [address]Dr. Garima Heraclio MCH (RBC) [Entitic mass] 30.0 pg Normal 25.9-34.0 [facility] Comment on above: Performed By: #### C BC ####[facility] Ypxojbxwfu[address] [place], [place] [address]Dr. Garima Pulliam MCHC (RBC) [Mass/Vol] 32.9 g/dL Normal 29.9-35.2 [facility] Comment on above: Performed By: #### C BC ####[facility] Cfksvsuvmf2354 [place] [phone]. Garima Pulliam MCV (RBC) [Entitic vol] 91.0 fL Normal 80.0-94.0 [facility] Comment on above: Performed By: #### C BC ####[facility] Mjronfatkg4499 [place] [phone]. Garima Heraclio MONO # 0.8 103/ul Normal 0.3-0.8 [facility] Comment on above: Performed By: #### C BC ####[facility] Pmzlgihqcb7234 [place] [address]Dr. Chapisrenu Pulliam Monocytes/100 WBC (Bld) 9.7 % Normal 1.7-12.0 [facility] Comment on above: Performed By: #### C BC ####[facility] Xlyvqavudj[address] [place] [address]Dr. Garima Pulliam NEUT # 4.9 103/ul Normal 1.4-6.5 [facility] Comment on above: Performed By: #### C BC ####[facility] Tuhqhbpkgr4587 [place] [phone]. Garima Heraclio Neutrophils/100 WBC (Bld) 62.7 % Normal 43.0-75.0 [facility] Comment on above: Performed By: #### C BC ####[facility] Mqjglzxbwg5211 [place] [phone]. Garima Heraclio Platelet mean volume (Bld) [Entitic vol] 8.8 fL Critically low 9.5-13.5 [facility] Comment on above: Performed By: #### C BC ####[facility] Nyhisjfcpl9956 [place] [phone]. Garima Heraclio PLT 198 103/ul Normal 150-450 [facility] Comment on above: Performed By: #### C BC ####[facility] Ispwycalmt2392 [place] [phone]. Garima Heraclio RBC 4.77 106/ul Normal 4.70-6.10 [facility] Comment on above: Performed By: #### C BC ####[facility] Quancxbmks2756 [place] [phone]. Garima Heraclio WBC 7.9 103/ul Normal 4.0-11.0 [facility] Comment on above: Performed By: #### C BC ####[facility] Ddheeuvmeq6086 [place] [phone]. Garima Heraclio D-DIMERon 03-22-2023 D-DIMER 0.85 mg/L FEU Critically high <=0.59 [facility] Comment on above: Performed By: #### D DIM ####[facility] [address]gfzunikdp[address] [place] [address]Dr. Garima Pulliam D-DIMER COMMENTS SEE BELOW Normal [facility] [...] generalized hospitalization. Performed By: #### D DIM ####[facility] Tbzozqcnup[address] [place], [place] [address]Dr. Garima Pulliam PROF CHEM 8 (BAS METB)on Anion gap [Moles/Vol] 6.9 mmol/L Normal [facility] Comment on above: Performed By: #### B MODEL DRESSER, BMP ####[facility] Rawieiyhpa[address] [place] [address]Dr. Garima Pulliam Calcium [Mass/Vol] 8.9 mg/dL Normal 8.5-10.1 [facility] Comment on above: Performed By: #### B MODEL DRESSER, BMP ####[facility] Wiaqdwzpee2453 [place] [address]Dr. Garima Pulliam Chloride [Moles/Vol] 101 mmol/L Normal 98-107 [facility] Comment on above: Performed By: #### B MODEL DRESSER, BMP ####[facility] Ckumpfmigd[address] [place], [place] [address]Dr. Chapisrenu Heraclio CO2 [Moles/Vol] 30.7 mmol/L Normal 21.0-32.0 [facility] Comment on above: Performed By: #### B MODEL DRESSER, BMP ####[facility] Hdnhehphke[address] [place], [place] [address]Dr. Garima Pulliam Creatinine [Mass/Vol] 0.82 mg/dL Normal 0.70-1.30 [facility] Comment on above: Performed By: #### B MODEL DRESSER, BMP ####[facility] Lwjqkcclym08[address] [place], [place] [address]Dr. Garima Pulliam EGFR-AF MOROCCAN >60 Normal >=60 [facility] Comment on above: Performed By: #### B MODEL DRESSER, BMP ####[facility] Qxohddwgeo00[address] [place], [place] [address]Dr. Chapisrenu Heraclio EGFR-NON AF MOROCCAN >60 Normal >=60 [facility] Comment on above: Performed By: #### B MODEL DRESSER, BMP ####[facility] Lofckkwzmc50[address] [place], [place] [address]Dr. Garima Pulliam Glucose [Mass/Vol] 339 mg/dL Critically high 74-106 T [facility] Comment on above: Performed By: #### B MODEL DRESSER, BMP ####[facility] Iegrsxgird[address] [place], [place] [address]Dr. Garima Pulliam Potassium [Moles/Vol] 3.6 mmol/L Normal 3.5-5.1 [facility] Comment on above: Performed By: #### B MODEL DRESSER, BMP ####[facility] Birtzljnov4[address] [place], [place] [address]Dr. Garima Pulliam Sodium [Moles/Vol] 135 mmol/L Critically low 136-145 [facility] Comment on above: Performed By: #### B MODEL DRESSER, BMP ####[facility] Iuyysrdhtm[address] [place], [place] [address]Dr. Garima Pulliam Urea nitrogen [Mass/Vol] 11.0 mg/dL Normal 7.0-18.0 [facility] Comment on above: Performed By: #### B MODEL DRESSER, BMP ####[facility] Bfvhwabzdx10[address] [place], [place] [address]Dr. Garima Pulliam Urea nitrogen/Creatinine [Mass ratio] 13.4 mg/mg Normal [facility] Comment on above: Performed By: #### B MODEL DRESSER, BMP ####[facility] Vxxanlatqn[address] [place], [place] [address]Dr. Garima Pulliam US VERONICA DOP LEG BILon 023 US VERONICA DOP LEG BENOIT Normal [facility] BNPon 03-18-2023 Natriuretic peptide B (Bld) [Mass/Vol] 226.0 pg/mL Normal <=900.0 [facility] Comment on above: Performed By: #### B MODEL DRESSER, BMP ####[facility] Giyglprjdk338[address] [place], [place] [address]Dr. Garima Pulliam CBC AUTO DIFFon 03-18-2023 BASO # 0.0 103/ul Normal 0.0-0.1 [facility] Comment on above: Performed By: #### C BC ####[facility] Vadeygqfsd94[address] [place], [place] [address]Dr. Garima Heraclio Basophils/100 WBC (Bld) 0.2 % Normal 0.2-2.0 [facility] Comment on above: Performed By: #### C BC ####[facility] Aewvyvzivz[address] [place], [place] [address]Dr. Garima Pulliam EO # 0.3 103/ul Normal 0.0-0.7 [facility] Comment on above: Performed By: #### C BC ####[facility] Sexfxxupdf170[address] [place], [place] [address]Dr. Garima Heraclio Eosinophils/100 WBC (Bld) 2.5 % Normal 0.9-7.0 [facility] Comment on above: Performed By: #### C BC ####[facility] Rswbbutstm[address] [place], [place] [address]Dr. Garima Heraclio Erythrocyte distribution width (RBC) [Ratio] 13.2 % Normal 11.0-15.0 [facility] Comment on above: Performed By: #### C BC ####[facility] Xqdgkxxjmk028[address] [place] [address]DrAdalberto Pulliam Hematocrit (Bld) [Volume fraction] 45.8 % Normal 42.0-54.0 [facility] Comment on above: Performed By: #### C BC ####[facility] Ciuukgynzu0492 [place] [address]DrAdalberto Pulliam Hemoglobin (Bld) [Mass/Vol] 15.3 g/dL Normal 14.0-18.0 [facility] Comment on above: Performed By: #### C BC ####[facility] Cqmbuspmek[address] [place], [place] [address]DrAdalberto Pulliam IG # 0.02 10e3/ul Normal 0.00-0.03 [facility] Comment on above: Performed By: #### C BC ####[facility] Nieegbhrlm[address] [place], [place] [address]DrAdalberto Pulliam IG % 0.2 % Normal 0.0-0.5 [facility] Comment on above: Performed By: #### C BC ####[facility] Grzherbthf[address] [place], [place] [address]DrAdalberto Pulliam LYMPH # 1.8 103/ul Normal 1.2-3.8 [facility] Comment on above: Performed By: #### C BC ####[facility] Rygoteqoei[address] [place], [place] [address]DrAdalberto Pulliam Lymphocytes/100 WBC (Bld) 18.3 % Critically low 20.5-60.0 [facility] Comment on above: Performed By: #### C BC ####[facility] Kdroaxpvcx06[address] [place], [place] [address]DrAdalberto Pulliam MANUAL DIFF REQ NO Normal [facility] Comment on above: Performed By: #### C BC ####[facility] Iebnxgblfe32[address] [place] [address]DrAdalberto Pulliam MCH (RBC) [Entitic mass] 30.5 pg Normal 25.9-34.0 [facility] Comment on above: Performed By: #### C BC ####[facility] Ypanbemqzc1926 [place] [address]DrAdalberto Pulliam MCHC (RBC) [Mass/Vol] 33.4 g/dL Normal 29.9-35.2 [facility] Comment on above: Performed By: #### C BC ####[facility] Idhcicuuou1349 [place] [address]DrAdalberto Pulliam MCV (RBC) [Entitic vol] 91.2 fL Normal 80.0-94.0 [facility] Comment on above: Performed By: #### C BC ####[facility] Ydyfvysoly[address] [place], [place] [address]DrAdalberto Pulliam MONO # 0.8 103/ul Normal 0.3-0.8 [facility] Comment on above: Performed By: #### C BC ####[facility] Bknfwuximn3[address] [place], [place] [address]DrAdalberto Pulliam Monocytes/100 WBC (Bld) 7.6 % Normal 1.7-12.0 [facility] Comment on above: Performed By: #### C BC ####[facility] Yyvlhrihvd[address] [place], [place] [address]DrAdalberto Pulliam NEUT # 7.0 103/ul Critically high 1.4-6.5 [facility] Comment on above: Performed By: #### C BC ####[facility] Vmwcffxntl[address] [place], [place] [address]DrAdalberto Pulliam Neutrophils/100 WBC (Bld) 71.2 % Normal 43.0-75.0 [facility] Comment on above: Performed By: #### C BC ####[facility] Oaiirfsoip[address] [place], [place] [address]DrAdalberto Pulliam Platelet mean volume (Bld) [Entitic vol] 8.9 fL Critically low 9.5-13.5 [facility] Comment on above: Performed By: #### C BC ####[facility] Xfexytuayc04[address] [place], [place] [address]DrAdalberto Pulliam PLT 217 103/ul Normal 150-450 [facility] Comment on above: Performed By: #### C BC ####[facility] Pfjshacnly[address] [place] [address]Dr. Garima Heraclio RBC 5.02 106/ul Normal 4.70-6.10 [facility] Comment on above: Performed By: #### C BC ####[facility] Szbkjfqeqk[address] [place], [place] [address]Dr. Garima Pulliam WBC 9.8 103/ul Normal 4.0-11.0 [facility] Comment on above: Performed By: #### C BC ####[facility] Rbiqughrox[address] [place], [place] [address]Dr. Garima Heraclio CRPon 03-18-2023 CRP 0.1 mg/dL Normal <=1.0 [facility] Comment on above: Performed By: #### C RP ####[facility] Wthocxwubb14[address] [place], [place] [address]Dr. Garima Heraclio PROF CHEM 8 (BAS METB)on Anion gap [Moles/Vol] 10.4 mmol/L Normal [facility] Comment on above: Performed By: #### B MODEL DRESSER, BMP ####[facility] Enmjcnnayn88[address] [place], [place] [address]Dr. Garima Heraclio Calcium [Mass/Vol] 8.8 mg/dL Normal 8.5-10.1 [facility] Comment on above: Performed By: #### B MODEL DRESSER, BMP ####[facility] Jvwiotrfin[address] [place], [place] [address]Dr. Garima Heraclio Chloride [Moles/Vol] 97 mmol/L Critically low 98-107 [facility] Comment on above: Performed By: #### B MODEL DRESSER, BMP ####[facility] Tabbpqrisd[address] [place], [place] [address]Dr. Garima Pulliam CO2 [Moles/Vol] 31.2 mmol/L Normal 21.0-32.0 [facility] Comment on above: Performed By: #### B MODEL DRESSER, BMP ####[facility] Cndwncbyuu[address] [place], [place] [address]Dr. Garima Pulliam Creatinine [Mass/Vol] 0.91 mg/dL Normal 0.70-1.30 [facility] Comment on above: Performed By: #### B MODEL DRESSER, BMP ####[facility] Yobijayfmu[address] [place] [address]Dr. Garima Pulliam EGFR-AF MOROCCAN >60 Normal >=60 [facility] Comment on above: Performed By: #### B MODEL DRESSER, BMP ####[facility] Nbubyipgrt13[address] [place] [id number]. Garima Pulliam EGFR-NON AF MOROCCAN >60 Normal >=60 [facility] Comment on above: Performed By: #### B MODEL DRESSER, BMP ####[facility] Ityotongev[address] [place] [address]Dr. Garima Pulliam Glucose [Mass/Vol] 315 mg/dL Critically high 74-106 T [facility] Comment on above: Performed By: #### B MODEL DRESSER, BMP ####[facility] Sdpaxyzmkm88[address] [place] [address]Dr. Garima Pulliam Potassium [Moles/Vol] 3.6 mmol/L Normal 3.5-5.1 [facility] Comment on above: Performed By: #### B MODEL DRESSER, BMP ####[facility] [address]qdxrxrkql25[address] [place] [address]Dr. Garima Pulliam Sodium [Moles/Vol] 135 mmol/L Critically low 136-145 Th [facility] Comment on above: Performed By: #### B MODEL DRESSER, BMP ####[facility] [address] [place] [address]Dr. Garima Pulliam Urea nitrogen [Mass/Vol] 7.0 mg/dL Normal 7.0-18.0 [facility] Comment on above: Performed By: #### B MODEL DRESSER, BMP ####[facility] [address] [place] [address]Dr. Garima Pulliam Urea nitrogen/Creatinine [Mass ratio] 7.7 mg/mg Normal [facility] Comment on above: Performed By: #### B MODEL DRESSER, BMP ####[facility] [address]lguzxyq[address] [place] [address]Dr. Garima Pulliam SED RATE WESTERGRENon 2022 SED RATE 8 mm/hr Normal <=20 [facility] Comment on above: Performed By: #### S EDR ####[facility] Npqvns[address] [place], [place] [address]Dr. Garima Pulliam BNPon 03-16-2023 Natriuretic peptide B (Bld) [Mass/Vol] 241.0 pg/mL Normal <=900.0 [facility] Comment on above: Performed By: #### B MODEL DRESSER, BMP, HSTROPN ####[facility] [address]qybiwgbvj[address] [place], [place] [address]Dr. Garima Heraclio CBC AUTO DIFFon 03-16-2023 BASO # 0.0 103/ul Normal 0.0-0.1 [facility] Comment on above: Performed By: #### C BC ####[facility] Ndhyqdzpxp[address] [place], [place] [address]Dr. Chapisrenu Pulliam Basophils/100 WBC (Bld) 0.2 % Normal 0.2-2.0 [facility] Comment on above: Performed By: #### C BC ####[facility] Jgefgthhgs[address] [place], [place] [address]Dr. Garima Pulliam EO # 0.2 103/ul Normal 0.0-0.7 [facility] Comment on above: Performed By: #### C BC ####[facility] Cwoqjqsutk[address] [place], [place] [address]Dr. Chapisrenu Pulliam Eosinophils/100 WBC (Bld) 2.7 % Normal 0.9-7.0 [facility] Comment on above: Performed By: #### C BC ####[facility] Gahoxdwqcn[address] [place], [place] [address]Dr. Gariam Pulliam Erythrocyte distribution width (RBC) [Ratio] 13.1 % Normal 11.0-15.0 [facility] Comment on above: Performed By: #### C BC ####[facility] Urpupkyjuf[address] [place], [place] [address]Dr. Garima Pulliam Hematocrit (Bld) [Volume fraction] 41.8 % Critically low 42.0-54.0 [facility] Comment on above: Performed By: #### C BC ####[facility] Q[address] [place] [address]Dr. Garima Pulliam Hemoglobin (Bld) [Mass/Vol] 14.0 g/dL Normal 14.0-18.0 [facility] Comment on above: Performed By: #### C BC ####[facility] [address]yxbr[address] [place] [address]Dr. Garima Pulliam IG # 0.03 10e3/ul Normal 0.00-0.03 [facility] Comment on above: Performed By: #### C BC ####[facility] Vswqvmwiga[address] [place] [address]Dr. Garima Pulliam IG % 0.3 % Normal 0.0-0.5 [facility] Comment on above: Performed By: #### C BC ####[facility] Qmwnhszqhj[address] [place], [place] [address]Dr. Chapisrenu Pulliam LYMPH # 2.1 103/ul Normal 1.2-3.8 [facility] Comment on above: Performed By: #### C BC ####[facility] Hexltcgkvq8[address] [place], [place] [address]Dr. Chapisrenu Pulliam Lymphocytes/100 WBC (Bld) 24.2 % Normal 20.5-60.0 [facility] Comment on above: Performed By: #### C BC ####[facility] [address]yejgewmg[address] [place] [address]Dr. Garima Pulliam MANUAL DIFF REQ NO Normal [facility] Comment on above: Performed By: #### C BC ####[facility] Xvxakzjvro[address] [place] [address]Dr. Garima Pulliam MCH (RBC) [Entitic mass] 30.2 pg Normal 25.9-34.0 [facility] Comment on above: Performed By: #### C BC ####[facility] [address]uftx[address] [place] [address]Dr. Garima Pulliam MCHC (RBC) [Mass/Vol] 33.5 g/dL Normal 29.9-35.2 [facility] Comment on above: Performed By: #### C BC ####[facility] [address] [place] [phone]. Garima Pulliam MCV (RBC) [Entitic vol] 90.1 fL Normal 80.0-94.0 [facility] Comment on above: Performed By: #### C BC ####[facility] Vkvxgifyvg[address] [place] [phone]. Garima Pulliam MONO # 0.6 103/ul Normal 0.3-0.8 [facility] Comment on above: Performed By: #### C BC ####[facility] [address]ethwmv[address] [place] [address]Dr. Garima Heraclio Monocytes/100 WBC (Bld) 7.4 % Normal 1.7-12.0 [facility] Comment on above: Performed By: #### C BC ####[facility] Zyycmiwkso[address] [place], [place] [address]Dr. Garima Pulliam NEUT # 5.6 103/ul Normal 1.4-6.5 [facility] Comment on above: Performed By: #### C BC ####[facility] Vnsjiibdzb[address] [place], [place] [address]Dr. Garima Heraclio Neutrophils/100 WBC (Bld) 65.2 % Normal 43.0-75.0 [facility] Comment on above: Performed By: #### C BC ####[facility] Sxqlabvxeh[address] [place] [phone]. Garima Heraclio Platelet mean volume (Bld) [Entitic vol] 8.7 fL Critically low 9.5-13.5 [facility] Comment on above: Performed By: #### C BC ####[facility] Efsuin[address] [place], [place] [id number]. Garima Heraclio PLT 195 103/ul Normal 150-450 [facility] Comment on above: Performed By: #### C BC ####[facility] Tiguioepnp[address] [place] [phone]. Garima Pulliam RBC 4.64 106/ul Critically low 4.70-6.10 The [facility] Comment on above: Performed By: #### C BC ####[facility] L[address]xtkreux[address] [place] [address]Dr. Garima Pulliam WBC 8.6 103/ul Normal 4.0-11.0 [facility] Comment on above: Performed By: #### C BC ####[facility] Ozcjbrhtam[address] [place] [address]Dr. Garima Pulliam PROF CHEM 8 (BAS METB)on Anion gap [Moles/Vol] 6.7 mmol/L Normal [facility] Comment on above: Performed By: #### B MODEL DRESSER, BMP, HSTROPN ####[facility] Vfdvjxxjoc[address] [place] [address]Dr. Garima Pulliam Calcium [Mass/Vol] 8.8 mg/dL Normal 8.5-10.1 [facility] Comment on above: Performed By: #### B MODEL DRESSER, BMP, HSTROPN ####[facility] Jiujjkuvir[address] [place], [place] [address]Dr. Garima Pulliam Chloride [Moles/Vol] 106 mmol/L Normal 98-107 [facility] Comment on above: Performed By: #### B MODEL DRESSER, BMP, HSTROPN ####[facility] Awsurbxbhn[address] [place], [place] [address]Dr. Garima Pulliam CO2 [Moles/Vol] 31.4 mmol/L Normal 21.0-32.0 [facility] Comment on above: Performed By: #### B MODEL DRESSER, BMP, HSTROPN ####[facility] Ahfpybfllb[address] [place], [place] [address]Dr. Garima Pulliam Creatinine [Mass/Vol] 0.75 mg/dL Normal 0.70-1.30 [facility] Comment on above: Performed By: #### B MODEL DRESSER, BMP, HSTROPN ####[facility] [address]ispw[address] [place] [address]Dr. Garima Pulliam EGFR-AF MOROCCAN >60 Normal >=60 [facility] Comment on above: Performed By: #### B MODEL DRESSER, BMP, HSTROPN ####[facility] [address]fe[address]umwc[address] [place] [address]Dr. Garima Pulliam EGFR-NON AF MOROCCAN >60 Normal >=60 [facility] Comment on above: Performed By: #### B MODEL DRESSER, BMP, HSTROPN ####[facility] Ovlwhabmpl[address] [place] [address]Dr. Garima Pulliam Glucose [Mass/Vol] 161 mg/dL Critically high 74-106 T [facility] Comment on above: Performed By: #### B MODEL DRESSER, BMP, HSTROPN ####[facility] [address]xxrbkhhbv[address] [place] [address]Dr. Garima Pulliam Potassium [Moles/Vol] 4.1 mmol/L Normal 3.5-5.1 [facility] Comment on above: Performed By: #### B MODEL DRESSER, BMP, HSTROPN ####[facility] [address]znwcjlm[address] [place] [address]Dr. Garima Pulliam Sodium [Moles/Vol] 140 mmol/L Normal 136-145 [facility] Comment on above: Performed By: #### B MODEL DRESSER, BMP, HSTROPN ####[facility] [address]odvbumrds[address] [place] [address]Dr. Garima Pulliam Urea nitrogen [Mass/Vol] 7.0 mg/dL Normal 7.0-18.0 [facility] Comment on above: Performed By: #### B MODEL DRESSER, BMP, HSTROPN ####[facility] Enoymmrfnq[address] [place] [address]Dr. Garima Pulliam Urea nitrogen/Creatinine [Mass ratio] 9.3 mg/mg Normal [facility] Comment on above: Performed By: #### B MODEL DRESSER, BMP, HSTROPN ####[facility] [address]zwwsgc[address] [place] [address]Dr. Garima Pulliam TROPONIN, HIGH SENSITIVITYon 03-16-2023 HSTROP 9.7 pg/mL Normal 4.0-76.1 [facility] Comment on above: Result Comment: CUT- OFF POINTS HAVE BEEN ESTABLISHED BASED ON THE FOURTH UNIVERSAL DEFINITIONS OF MYOCARDIALINFARCTION. THE UPPER REFERENCE LIMIT (URL) OF TROPONIN, DEFINED THE 99TH PERCENTILE OFcTnI DISTRIBUTION IN A REFERENCE POPULATION, HAS BEEN CONFIRMED THE DECISION THRESHOLDFOR [place] DIAGNOSIS. Performed By: #### B MODEL DRESSER, BMP, HSTROPN ####[facility] [address]st[address] [place] [address]Dr. Garima Pulliam XR CHEST 1 Von 03-16-2023 XR CHEST 1 V Normal [facility] BNPon 03-06-2023 Natriuretic peptide B (Bld) [Mass/Vol] 111.0 pg/mL Normal <=900.0 [facility] Comment on above: Performed By: #### C MP, BNP, CK ####[facility] Gse[address]wzqz[address] [place] [address]Dr. Chapisrenu Pulliam CBC AUTO DIFFon 03-06-2023 BASO # 0.0 103/ul Normal 0.0-0.1 [facility] Comment on above: Performed By: #### C BC ####[facility] Gjostvbozu[address] [place], [place] [address]Dr. Garima Pulliam Basophils/100 WBC (Bld) 0.2 % Normal 0.2-2.0 [facility] Comment on above: Performed By: #### C BC ####[facility] Jnwglrsrpq6[address] [place], [place] [address]Dr. Garima Pulliam EO # 0.3 103/ul Normal 0.0-0.7 [facility] Comment on above: Performed By: #### C BC ####[facility] Lheshxshvt[address] [place], [place] [address]Dr. Garima Pulliam Eosinophils/100 WBC (Bld) 3.5 % Normal 0.9-7.0 [facility] Comment on above: Performed By: #### C BC ####[facility] Lynbvoxmou4[address] [place], [place] [address]Dr. Garima Pulliam Erythrocyte distribution width (RBC) [Ratio] 13.3 % Normal 11.0-15.0 [facility] Comment on above: Performed By: #### C BC ####[facility] Ppficvslux[address] [place], [place] [address]Dr. Garima Pulliam Hematocrit (Bld) [Volume fraction] 43.7 % Normal 42.0-54.0 [facility] Comment on above: Performed By: #### C BC ####[facility] [address]swgcj[address] [place] [address]Dr. Garima Pulliam Hemoglobin (Bld) [Mass/Vol] 14.7 g/dL Normal 14.0-18.0 [facility] Comment on above: Performed By: #### C BC ####[facility] Yzooqiibqk[address] [place] [address]Dr. Chapisrenu Heraclio IG # 0.03 10e3/ul Normal 0.00-0.03 [facility] Comment on above: Performed By: #### C BC ####[facility] Mbihbzvylm[address] [place], [place] [address]Dr. Garima Pulliam IG % 0.4 % Normal 0.0-0.5 [facility] Comment on above: Performed By: #### C BC ####[facility] Uisyyieory[address] [place], [place] [address]Dr. Garima Pulliam LYMPH # 2.0 103/ul Normal 1.2-3.8 [facility] Comment on above: Performed By: #### C BC ####[facility] Frtfjayybt[address] [place], [place] [address]DrAdalberto Pulliam Lymphocytes/100 WBC (Bld) 23.7 % Normal 20.5-60.0 [facility] Comment on above: Performed By: #### C BC ####[facility] [address] [place] [address]Dr. Garima Pulliam MANUAL DIFF REQ NO Normal [facility] Comment on above: Performed By: #### C BC ####[facility] Sclybobori[address] [place] [phone] Pulliam MCH (RBC) [Entitic mass] 30.1 pg Normal 25.9-34.0 [facility] Comment on above: Performed By: #### C BC ####[facility] [address]uc[address]xpl[address] [place] [phone]. Garima Pulliam MCHC (RBC) [Mass/Vol] 33.6 g/dL Normal 29.9-35.2 [facility] Comment on above: Performed By: #### C BC ####[facility] Bt[address]igay[address] [place] [address]Dr. Garima Heraclio MCV (RBC) [Entitic vol] 89.4 fL Normal 80.0-94.0 [facility] Comment on above: Performed By: #### C BC ####[facility] Kbgrropnhf[address] [place] [address]Dr. Garima Pulliam MONO # 0.8 103/ul Normal 0.3-0.8 [facility] Comment on above: Performed By: #### C BC ####[facility] Drfjokhajs[address] [place] [address]Dr. Garima Pulliam Monocytes/100 WBC (Bld) 9.0 % Normal 1.7-12.0 [facility] Comment on above: Performed By: #### C BC ####[facility] [address]shb[address]ioqh[address] [place], [place] [address]Dr. Garima Pulliam NEUT # 5.4 103/ul Normal 1.4-6.5 [facility] Comment on above: Performed By: #### C BC ####[facility] Aazuaijtgc[address] [place], [place] [address]Dr. Garima Pulliam Neutrophils/100 WBC (Bld) 63.2 % Normal 43.0-75.0 [facility] Comment on above: Performed By: #### C BC ####[facility] Wkgavrpdvs[address] [place], [place] [address]Dr. Garima Pulliam Platelet mean volume (Bld) [Entitic vol] 9.0 fL Critically low 9.5-13.5 [facility] Comment on above: Performed By: #### C BC ####[facility] Odfqhfafpu[address] [place], [place] [address]Dr. Garima Pulliam PLT 218 103/ul Normal 150-450 [facility] Comment on above: Performed By: #### C BC ####[facility] K[address]azefoava[address] [place] [phone]. Garima Pulliam RBC 4.89 106/ul Normal 4.70-6.10 [facility] Comment on above: Performed By: #### C BC ####[facility] [address]udjzjis[address] [place] [address]Dr. Garima Pulliam WBC 8.5 103/ul Normal 4.0-11.0 [facility] Comment on above: Performed By: #### C BC ####[facility] Mysekrzkko[address] [place] [address]Dr. Garima Pulliam CPKon 03-06-2023 CK [Catalytic activity/Vol] 191 U/L Normal 39-308 [facility] Comment on above: Performed By: #### C MP, BNP, CK ####[facility] [address]ldxkjvqdw[address] [place] [address]Dr. Garima Pulliam PROF 14(COMP METB)on 023 Albumin [Mass/Vol] 3.6 g/dL Normal 3.4-5.0 [facility] Comment on above: Performed By: #### C MP, BNP, CK ####[facility] Euvkdwctzp[address] [place] [address]Dr. Garima Pulliam Albumin/Globulin [Mass ratio] 1.2 {ratio} Normal [facility] Comment on above: Performed By: #### C MP, BNP, CK ####[facility] [address]atkkvhm[address] [place] [address]Dr. Garima Pulliam ALP [Catalytic activity/Vol] 91 U/L Normal 46-116 [facility] Comment on above: Performed By: #### C MP, BNP, CK ####[facility] [address]qfamtla[address] [place] [address]Dr. Garima Pulliam ALT [Catalytic activity/Vol] 33 U/L Normal 16-63 [facility] Comment on above: Performed By: #### C MP, BNP, CK ####[facility] Bczyxpbove[address] [place] [address]Dr. Garima Pulliam Anion gap [Moles/Vol] 10.3 mmol/L Normal [facility] Comment on above: Performed By: #### C MP, BNP, CK ####[facility] Ewwdaikzks[address] [place] [address]Dr. Garima Pulliam AST [Catalytic activity/Vol] 17 U/L Normal 15-37 [facility] Comment on above: Performed By: #### C MP, BNP, CK ####[facility] Ffsamoftkq[address] [place] [address]Dr. Garima Pulliam Bilirubin [Mass/Vol] 0.4 mg/dL Normal 0.2-1.0 [facility] Comment on above: Performed By: #### C MP, BNP, CK ####[facility] [address]zgvaduq[address] [place] [address]Dr. Garima Pulliam Calcium [Mass/Vol] 9.1 mg/dL Normal 8.5-10.1 [facility] Comment on above: Performed By: #### C MP, BNP, CK ####[facility] Xrnizjggey[address] [place] [address]Dr. Garima Pulliam Chloride [Moles/Vol] 102 mmol/L Normal 98-107 [facility] Comment on above: Performed By: #### C MP, BNP, CK ####[facility] [address]fwqpmt[address] [place] [address]Dr. Garima Pulliam CO2 [Moles/Vol] 29.7 mmol/L Normal 21.0-32.0 [facility] Comment on above: Performed By: #### C MP, BNP, CK ####[facility] Rfofkncotd[address] [place] [address]Dr. Garima Pulliam Creatinine [Mass/Vol] 0.79 mg/dL Normal 0.70-1.30 [facility] Comment on above: Performed By: #### C MP, BNP, CK ####[facility] Csiqxxufak[address] [place] [address]Dr. Garima Pulliam EGFR-AF MOROCCAN >60 Normal >=60 [facility] Comment on above: Performed By: #### C MP, BNP, CK ####[facility] [address]vqsoeyfau[address] [place] [address]Dr. Garima Pulliam EGFR-NON AF MOROCCAN >60 Normal >=60 [facility] Comment on above: Performed By: #### C MP, BNP, CK ####[facility] Rqqoaxzwlq[address] [place] [address]Dr. Garima Pulliam Globulin (S) [Mass/Vol] 3.0 g/dL Normal [facility] Comment on above: Performed By: #### C MP, BNP, CK ####[facility] Lxfsgloqnv[address] [place] [address]Dr. Garima Pulliam Glucose [Mass/Vol] 202 mg/dL Critically high 74-106 [facility] Comment on above: Performed By: #### C MP, BNP, CK ####[facility] [address]edmwtlff[address] [place] [address]Dr. Garima Pulliam Potassium [Moles/Vol] 4.0 mmol/L Normal 3.5-5.1 [facility] Comment on above: Performed By: #### C MP, BNP, CK ####[facility] Kiyrrowerx[address] [place] [address]Dr. Garima Pulliam Protein [Mass/Vol] 6.6 g/dL Normal 6.4-8.2 [facility] Comment on above: Performed By: #### C MP, BNP, CK ####[facility] Qkxbhnpdxr[address] [place], [place] [address]Dr. Garima Pulliam Sodium [Moles/Vol] 138 mmol/L Normal 136-145 [facility] Comment on above: Performed By: #### C MP, BNP, CK ####[facility] Sjnxososhn[address] [place], [place] [address]Dr. Garima Pulliam Urea nitrogen [Mass/Vol] 10.0 mg/dL Normal 7.0-18.0 [facility] Comment on above: Performed By: #### C MP, BNP, CK ####[facility] Ejhoczfwuw[address] [place] [address]Dr. Garima Pulliam Urea nitrogen/Creatinine [Mass ratio] 12.7 mg/mg Normal [facility] Comment on above: Performed By: #### C MP, BNP, CK ####[facility] Yeisgculmg[address] [place] [address]Dr. Garima Pulliam US VERONICA DOP LEG BILon 023 US VERONICA DOP LEG BENOIT Normal [facility] CBC AUTO DIFFon 01-13-2023 BASO # 0.0 103/ul Normal 0.0-0.1 [facility] Comment on above: Performed By: #### C BC ####[facility] Eghouawarj[address] [place] [phone]. Chapisrenu Pulliam Basophils/100 WBC (Bld) 0.0 % Critically low 0.2-2.0 [facility] Comment on above: Performed By: #### C BC ####[facility] Ljavbttder[address] [place] [address]Dr. Garima Pulliam EO # 0.0 103/ul Normal 0.0-0.7 [facility] Comment on above: Performed By: #### C BC ####[facility] Qhqjrsivuc[address] [place], [place] [address]Dr. Garima Pulliam Eosinophils/100 WBC (Bld) 0.0 % Critically low 0.9-7.0 [facility] Comment on above: Performed By: #### C BC ####[facility] Euuhzywdql[address] [place] [address]Dr. Garima Pulliam Erythrocyte distribution width (RBC) [Ratio] 13.2 % Normal 11.0-15.0 [facility] Comment on above: Performed By: #### C BC ####[facility] Luokfjdaic[address] [place], [place] [address]Dr. Garima Pulliam Hematocrit (Bld) [Volume fraction] 46.7 % Normal 42.0-54.0 [facility] Comment on above: Performed By: #### C BC ####[facility] Duryfbizfy[address] [place], [place] [address]Dr. Garima Pulliam Hemoglobin (Bld) [Mass/Vol] 15.6 g/dL Normal 14.0-18.0 [facility] Comment on above: Performed By: #### C BC ####[facility] [address]sfbdnfsqm[address] [place], [place] [address]Dr. Garima Pulliam IG # 0.01 10e3/ul Normal 0.00-0.03 [facility] Comment on above: Performed By: #### C BC ####[facility] Hnnokduxia[address] [place] [phone]. Garima Pulliam IG % 0.2 % Normal 0.0-0.5 [facility] Comment on above: Performed By: #### C BC ####[facility] Kcwcyzopih19[address] [place] [phone]. Garima Pulliam LYMPH # 0.8 103/ul Critically low 1.2-3.8 [facility] Comment on above: Performed By: #### C BC ####[facility] Ppurbortff6[address] [place] [phone]. Garima Pulliam Lymphocytes/100 WBC (Bld) 12.7 % Critically low 20.5-60.0 [facility] Comment on above: Performed By: #### C BC ####[facility] Qalkullhvl[address] [place] [address]Dr. Garima Pulliam MANUAL DIFF REQ NO Normal [facility] Comment on above: Performed By: #### C BC ####[facility] Jhyyplwfpy3[address] [place] [phone]. Garima Pulliam MCH (RBC) [Entitic mass] 30.2 pg Normal 25.9-34.0 [facility] Comment on above: Performed By: #### C BC ####[facility] Xeqmfrwxbs[address] [place] [phone]. Garima Pulliam MCHC (RBC) [Mass/Vol] 33.4 g/dL Normal 29.9-35.2 [facility] Comment on above: Performed By: #### C BC ####[facility] Qikmeyrzwb7351 [place] [phone]. Garima Pulliam MCV (RBC) [Entitic vol] 90.3 fL Normal 80.0-94.0 [facility] Comment on above: Performed By: #### C BC ####[facility] [address]rasfcyip[address] [place] [phone]. Garima Heraclio MONO # 0.1 103/ul Critically low 0.3-0.8 [facility] Comment on above: Performed By: #### C BC ####[facility] Xmpkxjbyjm4952 [place] [phone]. Garima Pulliam Monocytes/100 WBC (Bld) 0.9 % Critically low 1.7-12.0 [facility] Comment on above: Performed By: #### C BC ####[facility] Pwrgsbrkvr75[address] [place] [phone]. Garima Pulliam NEUT # 5.6 103/ul Normal 1.4-6.5 [facility] Comment on above: Performed By: #### C BC ####[facility] Wvrryfxkgk4598 [place] [phone]. Garima Pulliam Neutrophils/100 WBC (Bld) 86.2 % Critically high 43.0-75.0 [facility] Comment on above: Performed By: #### C BC ####[facility] Leleprnwwt[address] [place] [address]Dr. Garima Pulliam Platelet mean volume (Bld) [Entitic vol] 9.1 fL Critically low 9.5-13.5 [facility] Comment on above: Performed By: #### C BC ####[facility] Cirjkbhnhx[address] [place], [place] [address]Dr. Garima Pulliam PLT 169 103/ul Normal 150-450 [facility] Comment on above: Performed By: #### C BC ####[facility] Hzidrvdgix9667[address] [place], [place] [address]Dr. Garima Pulliam RBC 5.17 106/ul Normal 4.70-6.10 [facility] Comment on above: Performed By: #### C BC ####[facility] Xepvvyzumq[address] [place], [place] [id number]. Garima Pulliam WBC 6.5 103/ul Normal 4.0-11.0 [facility] Comment on above: Performed By: #### C BC ####[facility] Mgcuqxyfwq3938[address] [place], [place] [address]Dr. Garima Pulliam D-DIMERon 01-13-2023 D-DIMER 0.41 mg/L FEU Normal <=0.59 [facility] Comment on above: Performed By: #### D DIM ####[facility] [address] [place] [address]Dr. Garima Pulliam D-DIMER COMMENTS SEE BELOW Normal [facility] Comment on above: Result Comment: Incr [...] generalized hospitalization. Performed By: #### D DIM ####[facility] Lreataxnsi[address] [place], [place] [address]Dr. Garima Pulliam PROF 14(COMP METB)on 023 Albumin [Mass/Vol] 3.4 g/dL Normal 3.4-5.0 [facility] Comment on above: Performed By: #### C MP ####[facility] Nsqkfsijbc[address] [place], [place] [address]Dr. Garima Pulliam Albumin/Globulin [Mass ratio] 1.3 {ratio} Normal [facility] Comment on above: Performed By: #### C MP ####[facility] Ilcfcujuxs20[address] [place], [place] [address]Dr. Garima Pulliam ALP [Catalytic activity/Vol] 83 U/L Normal 46-116 [facility] Comment on above: Performed By: #### C MP ####[facility] Isldxajupw4[address] [place], [place] [address]Dr. Garima Pulliam ALT [Catalytic activity/Vol] 25 U/L Normal 16-63 [facility] Comment on above: Performed By: #### C MP ####[facility] [address] [place] [address]Dr. Garima Pulliam Anion gap [Moles/Vol] 14.5 mmol/L Normal [facility] Comment on above: Performed By: #### C MP ####[facility] Sabjjrhlzy27[address] [place], [place] [address]Dr. Garima Pulliam AST [Catalytic activity/Vol] 19 U/L Normal 15-37 [facility] Comment on above: Performed By: #### C MP ####[facility] Vmiwonfmjf0117[address] [place], [place] [address]Dr. Garima Pulliam Bilirubin [Mass/Vol] 0.4 mg/dL Normal 0.2-1.0 [facility] Comment on above: Performed By: #### C MP ####[facility] Qxckwwydcl04[address] [place], [place] [address]Dr. Garima Pulliam Calcium [Mass/Vol] 8.7 mg/dL Normal 8.5-10.1 [facility] Comment on above: Performed By: #### C MP ####[facility] Lennjnewpa[address] [place], [place] [address]Dr. Garima Pulliam Chloride [Moles/Vol] 104 mmol/L Normal 98-107 [facility] Comment on above: Performed By: #### C MP ####[facility] Ukjkzguyfo8033[address] [place], [place] [address]Dr. Garima Pulliam CO2 [Moles/Vol] 24.5 mmol/L Normal 21.0-32.0 [facility] Comment on above: Performed By: #### C MP ####[facility] Rvhzmipyde0654[address] [place], [place] [address]Dr. Garima Pulliam Creatinine [Mass/Vol] 0.70 mg/dL Normal 0.70-1.30 [facility] Comment on above: Performed By: #### C MP ####[facility] Zrcsfomjur7[address] [place], [place] [address]Dr. Garima Heraclio EGFR-AF MOROCCAN >60 Normal >=60 [facility] Comment on above: Performed By: #### C MP ####[facility] Awpzzsqbcv135[address] [place], [place] [address]Dr. Chapisrenu Heraclio EGFR-NON AF MOROCCAN >60 Normal >=60 [facility] Comment on above: Performed By: #### C MP ####[facility] Tjxtvwdnrg4[address] [place], [place] [address]Dr. Chapisrenu Pulliam Globulin (S) [Mass/Vol] 2.6 g/dL Normal [facility] Comment on above: Performed By: #### C MP ####[facility] [address]ec[address] [place] [address]Dr. Garima Pulliam Glucose [Mass/Vol] 196 mg/dL Critically high 74-106 [facility] Comment on above: Performed By: #### C MP ####[facility] [address]ugqflzdts[address] [place] [address]Dr. Garima Pulliam Potassium [Moles/Vol] 4.0 mmol/L Normal 3.5-5.1 [facility] Comment on above: Performed By: #### C MP ####[facility] Tqzmiwkkph34[address] [place] [address]Dr. Garima Pulliam Protein [Mass/Vol] 6.0 g/dL Critically low 6.4-8.2 [facility] Comment on above: Performed By: #### C MP ####[facility] Wwoupedecd16[address] [place], [place] [address]Dr. Garima Pulliam Sodium [Moles/Vol] 139 mmol/L Normal 136-145 [facility] Comment on above: Performed By: #### C MP ####[facility] Xlqbsnfvej0338[address] [place], [place] [address]Dr. Garima Pulliam Urea nitrogen [Mass/Vol] 7.0 mg/dL Normal 7.0-18.0 [facility] Comment on above: Performed By: #### C MP ####[facility] Zaztcdcezd[address] [place], [place] [address]Dr. Garima Heraclio Urea nitrogen/Creatinine [Mass ratio] 10.0 mg/mg Normal [facility] Comment on above: Performed By: #### C MP ####[facility] Jadcxmlrfr8[address] [place], [place] [address]Dr. Garima Heraclio BNPon 01-12-2023 Natriuretic peptide B (Bld) [Mass/Vol] 141.0 pg/mL Normal <=900.0 [facility] Comment on above: Performed By: #### C MP, BNP, HSTROPN ####[facility] Jjozxkhqpr360[address] [place], [place] [address]Dr. Garima Heraclio CBC AUTO DIFFon 01-12-2023 BASO # 0.0 103/ul Normal 0.0-0.1 [facility] Comment on above: Performed By: #### C BC ####[facility] [address]sum[address] [place] [id number]. Garima Heraclio Basophils/100 WBC (Bld) 0.2 % Normal 0.2-2.0 [facility] Comment on above: Performed By: #### C BC ####[facility] Vfpkdyachc[address] [place] [address]Dr. Garima Heraclio EO # 0.2 103/ul Normal 0.0-0.7 [facility] Comment on above: Performed By: #### C BC ####[facility] Gmqpibonwp7[address] [place] [address]Dr. Garima Heraclio Eosinophils/100 WBC (Bld) 2.7 % Normal 0.9-7.0 [facility] Comment on above: Performed By: #### C BC ####[facility] Sbbpzlyxpw[address] [place], [place] [address]Dr. Garima Pulliam Erythrocyte distribution width (RBC) [Ratio] 13.3 % Normal 11.0-15.0 [facility] Comment on above: Performed By: #### C BC ####[facility] Gkauadaitp[address] [place], [place] [address]Dr. Garima Pulliam Hematocrit (Bld) [Volume fraction] 42.3 % Normal 42.0-54.0 [facility] Comment on above: Performed By: #### C BC ####[facility] Gsbizpwptw85[address] [place], [place] [address]Dr. Garima Pulliam Hemoglobin (Bld) [Mass/Vol] 14.3 g/dL Normal 14.0-18.0 [facility] Comment on above: Performed By: #### C BC ####[facility] Vsuwhvghum6[address] [place], [place] [address]Dr. Garima Pulliam IG # 0.02 10e3/ul Normal 0.00-0.03 [facility] Comment on above: Performed By: #### C BC ####[facility] [address] [place] [id number]. Garima Pulliam IG % 0.2 % Normal 0.0-0.5 [facility] Comment on above: Performed By: #### C BC ####[facility] O[address]cvkwosn[address] [place] [id number]. Garima Pulliam LYMPH # 2.6 103/ul Normal 1.2-3.8 [facility] Comment on above: Performed By: #### C BC ####[facility] [address]zmrjjfod[address] [place] [id number]. Garima Heraclio Lymphocytes/100 WBC (Bld) 29.6 % Normal 20.5-60.0 [facility] Comment on above: Performed By: #### C BC ####[facility] [address] [place] [address]Dr. Garima Heraclio MANUAL DIFF REQ NO Normal [facility] Comment on above: Performed By: #### C BC ####[facility] V[address]tdpys67[address] [place] [phone]. Garima Pulliam MCH (RBC) [Entitic mass] 30.2 pg Normal 25.9-34.0 [facility] Comment on above: Performed By: #### C BC ####[facility] Vsqlpohjaq[address] [place] [address]Dr. Garima Pulliam MCHC (RBC) [Mass/Vol] 33.8 g/dL Normal 29.9-35.2 [facility] Comment on above: Performed By: #### C BC ####[facility] Aeqkdisxrj56[address] [place] [phone]. Garima Pulliam MCV (RBC) [Entitic vol] 89.2 fL Normal 80.0-94.0 [facility] Comment on above: Performed By: #### C BC ####[facility] Gziaekkulb[address] [place], [place] [address]Dr. Chapisrenu Pulliam MONO # 0.7 103/ul Normal 0.3-0.8 [facility] Comment on above: Performed By: #### C BC ####[facility] Awh[address]ubhwqc5[address] [place] [phone]. Garima Pulliam Monocytes/100 WBC (Bld) 8.3 % Normal 1.7-12.0 [facility] Comment on above: Performed By: #### C BC ####[facility] Hcvpwbbqgo7144 [place] [phone]. Garima Pulliam NEUT # 5.1 103/ul Normal 1.4-6.5 [facility] Comment on above: Performed By: #### C BC ####[facility] Zxqqltutdw6196 [place] [phone]. Garima Pulliam Neutrophils/100 WBC (Bld) 59.0 % Normal 43.0-75.0 [facility] Comment on above: Performed By: #### C BC ####[facility] Fdzpfjxwmm060[address] [place] [address]Dr. Garima Pulliam Platelet mean volume (Bld) [Entitic vol] 8.7 fL Critically low 9.5-13.5 [facility] Comment on above: Performed By: #### C BC ####[facility] Bmhtnxioay[address] [place] [address]Dr. Garima Pulliam PLT 182 103/ul Normal 150-450 [facility] Comment on above: Performed By: #### C BC ####[facility] Bvrlbkljwp9[address] [place] [phone]. Garima Pulliam RBC 4.74 106/ul Normal 4.70-6.10 [facility] Comment on above: Performed By: #### C BC ####[facility] Wtiscl[address] [place], [place] [address]Dr. Garima Pulliam WBC 8.7 103/ul Normal 4.0-11.0 [facility] Comment on above: Performed By: #### C BC ####[facility] Cgqmetgsoz[address] [place], [place] [address]Dr. Garima Pulliam Covid-19 PCR (CVDTB)on 12-25 SARS-CoV-2 (COVID-19) RNA MARIE+probe Ql (Unsp spec) Not detected Normal NOT DETECTED [facility] Comment on above: [...] for this test is supported by the Service Representative of Health and Human Service's declaration that [...] be used). Performed By: #### C VDTBH ####[facility] [address]us[address] [place] [address]Dr. Garima Pulliam PROF 14(COMP METB)on 023 Albumin [Mass/Vol] 3.6 g/dL Normal 3.4-5.0 [facility] Comment on above: Performed By: #### C MP, BNP, HSTROPN ####[facility] Oseeoswzad[address] [place] [address]Dr. Garima Pulliam Albumin/Globulin [Mass ratio] 1.5 {ratio} Normal [facility] Comment on above: Performed By: #### C MP, BNP, HSTROPN ####[facility] Zmawffiqhu[address] [place] [address]Dr. Garima Pulliam ALP [Catalytic activity/Vol] 79 U/L Normal 46-116 [facility] Comment on above: Performed By: #### C MP, BNP, HSTROPN ####[facility] Ozdlzvahad39[address] [place] [address]Dr. Garima Pulliam ALT [Catalytic activity/Vol] 27 U/L Normal 16-63 [facility] Comment on above: Performed By: #### C MP, BNP, HSTROPN ####[facility] Xbeavzrvew36[address] [place] [address]Dr. Garima Pulliam Anion gap [Moles/Vol] 11.7 mmol/L Normal [facility] Comment on above: Performed By: #### C MP, BNP, HSTROPN ####[facility] Iaezismtvj[address] [place] [address]Dr. Garima Pulliam AST [Catalytic activity/Vol] 21 U/L Normal 15-37 [facility] Comment on above: Performed By: #### C MP, BNP, HSTROPN ####[facility] Rbqyaepiwd36[address] [place] [address]Dr. Garima Pulliam Bilirubin [Mass/Vol] 0.3 mg/dL Normal 0.2-1.0 [facility] Comment on above: Performed By: #### C MP, BNP, HSTROPN ####[facility] Ecmksgopxv26[address] [place] [address]Dr. Garima Pulliam Calcium [Mass/Vol] 8.9 mg/dL Normal 8.5-10.1 [facility] Comment on above: Performed By: #### C MP, BNP, HSTROPN ####[facility] Mhdgesnyap[address] [place] [address]Dr. Garima Pulliam Chloride [Moles/Vol] 107 mmol/L Normal 98-107 [facility] Comment on above: Performed By: #### C MP, BNP, HSTROPN ####[facility] Fzwpcniomm[address] [place] [address]Dr. Garima Pulliam CO2 [Moles/Vol] 26.0 mmol/L Normal 21.0-32.0 [facility] Comment on above: Performed By: #### C MP, BNP, HSTROPN ####[facility] [address]isryhqes[address] [place] [address]Dr. Garima Pulliam Creatinine [Mass/Vol] 0.65 mg/dL Critically low 0.70-1.30 [facility] Comment on above: Performed By: #### C MP, BNP, HSTROPN ####[facility] K[address]ty[address] [place] [address]Dr. Yilan Pulliam EGFR-AF MOROCCAN >60 Normal >=60 [facility] Comment on above: Performed By: #### C MP, BNP, HSTROPN ####[facility] Xcoaqaezkk[address] [place] [address]Dr. Garima Pulliam EGFR-NON AF MOROCCAN >60 Normal >=60 [facility] Comment on above: Performed By: #### C MP, BNP, HSTROPN ####[facility] P[address]ockdjqv6[address] [place] [address]Dr. Garima Pulliam Globulin (S) [Mass/Vol] 2.4 g/dL Normal [facility] Comment on above: Performed By: #### C MP, BNP, HSTROPN ####[facility] Ckhkxhrkox[address] [place], [place] [address]Dr. Garima Pulliam Glucose [Mass/Vol] 85 mg/dL Normal 74-106 [facility] Comment on above: Performed By: #### C MP, BNP, HSTROPN ####[facility] Cwrdjqfpdv34[address] [place] [address]Dr. Garima Pulliam Potassium [Moles/Vol] 3.7 mmol/L Normal 3.5-5.1 [facility] Comment on above: Performed By: #### C MP, BNP, HSTROPN ####[facility] Nblroqbupw4[address] [place] [address]Dr. Garima Pulliam Protein [Mass/Vol] 6.0 g/dL Critically low 6.4-8.2 [facility] Comment on above: Performed By: #### C MP, BNP, HSTROPN ####[facility] Ts[address]aw[address] [place] [address]Dr. Garima Pulliam Sodium [Moles/Vol] 141 mmol/L Normal 136-145 [facility] Comment on above: Performed By: #### C MP, BNP, HSTROPN ####[facility] Bismpytkyf[address] [place] [address]Dr. Garima Pulliam Urea nitrogen [Mass/Vol] 5.0 mg/dL Critically low 7.0-18.0 [facility] Comment on above: Performed By: #### C MP, BNP, HSTROPN ####[facility] Phocsflozy[address] [place] [address]Dr. Garima Pulliam Urea nitrogen/Creatinine [Mass ratio] 7.7 mg/mg Normal [facility] Comment on above: Performed By: #### C MP, BNP, HSTROPN ####[facility] [address]pjohjcwpi[address] [place] [address]Dr. Garima Pulliam PROTIMEon 01-12-2023 INR Coag (PPP) [Relative time] 1.16 {INR} Normal [facility] Comment on above: Performed By: #### P TT, PT ####[facility] Fngoiagdcx2[address] [place] [address]Dr. Garima Pulliam INR GUIDELINES SEE BELOW Normal [facility] Comment on above: Result Comment: WESLEY RED INR: 2.0 - 3.0 CONDITIONS NOT LISTED BELOW 2.5 - 3.5 FOR PROSTHETIC HEART VALVE REPLACEMENT 2.5 - 3.5 RECURRENT THROMBOSIS Performed By: #### P TT, PT ####[facility] [address]nohxzcqli[address] [place], [place] [address]Dr. Garima Pulliam PT Coag (PPP) [Time] 12.2 s Critically high 9.0-11.6 [facility] Comment on above: Performed By: #### P TT, PT ####[facility] Fnwrxtxcmp[address] [place] [address]Dr. Garima Pulliam PTTon 01-12-2023 aPTT Coag (Bld) [Time] 29.1 s Normal 22.3-36.2 [facility] Comment on above: Performed By: #### P TT, PT ####[facility] L[address]ogh[address] [place], [place] [address]Dr. Garima Pulliam TROPONIN, HIGH SENSITIVITYon 01-12-2023 HSTROP 10.3 pg/mL Normal 4.0-76.1 [facility] Comment on above: Result Comment: CUT- OFF POINTS HAVE BEEN ESTABLISHED BASED ON THE FOURTH UNIVERSAL DEFINITIONS OF MYOCARDIALINFARCTION. THE UPPER REFERENCE LIMIT (URL) OF TROPONIN, DEFINED THE 99TH PERCENTILE OFcTnI DISTRIBUTION IN A REFERENCE POPULATION, HAS BEEN CONFIRMED THE DECISION THRESHOLDFOR [place] DIAGNOSIS. Performed By: #### H STROPN ####[facility] [address]ikpffmdd[address] [place] [address]Dr. Garima Pulliam HSTROP 9.2 pg/mL Normal 4.0-76.1 [facility] Comment on above: Result Comment: CUT- OFF POINTS HAVE BEEN ESTABLISHED BASED ON THE FOURTH UNIVERSAL DEFINITIONS OF MYOCARDIALINFARCTION. THE UPPER REFERENCE LIMIT (URL) OF TROPONIN, DEFINED THE 99TH PERCENTILE OFcTnI DISTRIBUTION IN A REFERENCE POPULATION, HAS BEEN CONFIRMED THE DECISION THRESHOLDFOR [place] DIAGNOSIS. Performed By: #### C MP, BNP, HSTROPN ####[facility] Zcfwtzpvcq31[address] [place] [address]Dr. Garima Pulliam XR CHEST 1 Von 01-12-2023 XR CHEST 1 V Normal [facility] XR CHEST 1 Von 01-01-2023 XR CHEST 1 V Normal [facility] CARDIAC NASH 3-6on 3 CK [Catalytic activity/Vol] 196 U/L Normal 39-308 [facility] Comment on above: Performed By: #### C MREP ####[facility] Uhdpdsdato[address] [place] [address]Dr. Garima Pulliam CK.MB [Mass/Vol] 7.41 ng/mL Critically high <=3.60 [facility] Comment on above: Performed By: #### C MREP ####[facility] Tmslrfdivg64[address] [place] [address]Dr. Garima Pulliam HSTROP 10.3 pg/mL Normal 4.0-76.1 [facility] Comment on above: Result Comment: CUT- OFF POINTS HAVE BEEN ESTABLISHED BASED ON THE FOURTH UNIVERSAL DEFINITIONS OF MYOCARDIALINFARCTION. THE UPPER REFERENCE LIMIT (URL) OF TROPONIN, DEFINED THE 99TH PERCENTILE OFcTnI DISTRIBUTION IN A REFERENCE POPULATION, HAS BEEN CONFIRMED THE DECISION THRESHOLDFOR [place] DIAGNOSIS. Performed By: #### C MREP ####[facility] Azowzshycr[address] [place] [id number]. Garima Pulliam XR CHEST 1 Von 12-26-2022 XR CHEST 1 V Normal [facility] BNPon 12-25-2022 Natriuretic peptide B (Bld) [Mass/Vol] 98.0 pg/mL Normal <=900.0 [facility] Comment on above: Performed By: #### B MARVIN FRENCH CMADM ####[facility] Hbpfqplzkg9[address] [place] [address]Dr. Garima Pulliam CARDIAC NASH ADMITon 023 CK [Catalytic activity/Vol] 208 U/L Normal 39-308 [facility] Comment on above: Performed By: #### B MARVIN FRENCH CMADM ####[facility] Xaunulwyyr[address] [place] [address]Dr. Garima Pulliam CK.MB [Mass/Vol] 7.63 ng/mL Critically high <=3.60 [facility] Comment on above: Performed By: #### B MARVIN FRENCH CMADM ####[facility] Wujozqxagp[address] [place], [place] [address]Dr. Garima Pulliam HSTROP 8.8 pg/mL Normal 4.0-76.1 [facility] Comment on above: Result Comment: CUT- OFF POINTS HAVE BEEN ESTABLISHED BASED ON THE FOURTH UNIVERSAL DEFINITIONS OF MYOCARDIALINFARCTION. THE UPPER REFERENCE LIMIT (URL) OF TROPONIN, DEFINED THE 99TH PERCENTILE OFcTnI DISTRIBUTION IN A REFERENCE POPULATION, HAS BEEN CONFIRMED THE DECISION THRESHOLDFOR [place] DIAGNOSIS. Performed By: #### B MARVIN FRENCH CMADM ####[facility] Mndtbyxwkj22[address] [place], [place] [address]Dr. Garima Pulliam DORIS 83 ng/mL Normal 16-96 [facility] Comment on above: Performed By: #### B MARVIN FRENCH CMADM ####[facility] Rjusvmmner[address] [place], [place] [address]Dr. Garima Pulliam CBC AUTO DIFFon 12-25-2022 BASO # 0.0 103/ul Normal 0.0-0.1 [facility] Comment on above: Performed By: #### C BC ####[facility] Tmflknezug[address] [place], [place] [address]Dr. Garima Pulliam Basophils/100 WBC (Bld) 0.0 % Critically low 0.2-2.0 [facility] Comment on above: Performed By: #### C BC ####[facility] Hlqmchnaib15[address] [place] [address]Dr. Garima Pulliam EO # 0.0 103/ul Normal 0.0-0.7 [facility] Comment on above: Performed By: #### C BC ####[facility] Aurywpxgro67[address] [place], [place] [address]Dr. Garima Pulliam Eosinophils/100 WBC (Bld) 0.7 % Critically low 0.9-7.0 [facility] Comment on above: Performed By: #### C BC ####[facility] Nynvjudonb[address] [place], [place] [address]Dr. Garima Pulliam Erythrocyte distribution width (RBC) [Ratio] 13.4 % Normal 11.0-15.0 [facility] Comment on above: Performed By: #### C BC ####[facility] Ftgzvsufwm[address] [place], [place] [address]Dr. Garima Pulliam Hematocrit (Bld) [Volume fraction] 42.9 % Normal 42.0-54.0 [facility] Comment on above: Performed By: #### C BC ####[facility] Tsxxlgitdn[address] [place], [place] [address]Dr. Garima Pulliam Hemoglobin (Bld) [Mass/Vol] 14.4 g/dL Normal 14.0-18.0 [facility] Comment on above: Performed By: #### C BC ####[facility] Kibysbvgxq[address] [place], [place] [address]Dr. Garima Pulliam IG # 0.00 10e3/ul Normal 0.00-0.03 [facility] Comment on above: Performed By: #### C BC ####[facility] Bpecipyvzc20[address] [place], [place] [address]Dr. Garima Pulliam IG % 0.0 % Normal 0.0-0.5 [facility] Comment on above: Performed By: #### C BC ####[facility] Zsebttrkwb[address] [place], [place] [address]Dr. Garima Pulliam LYMPH # 2.4 103/ul Normal 1.2-3.8 [facility] Comment on above: Performed By: #### C BC ####[facility] Bjqsqbgzul2258 [place] [id number]. Chapisrenu Pulliam Lymphocytes/100 WBC (Bld) 29.2 % Normal 20.5-60.0 [facility] Comment on above: Performed By: #### C BC ####[facility] Fsaxxdrdms9164 [place] [phone]. Garmia Pulliam MANUAL DIFF REQ NO Normal [facility] Comment on above: Performed By: #### C BC ####[facility] Mrwssnzntl0856 [place] [phone]. Garima Pulliam MCH (RBC) [Entitic mass] 30.7 pg Normal 25.9-34.0 [facility] Comment on above: Performed By: #### C BC ####[facility] Vddckyxqkf[address] [place], [place] [address]Dr. Garima Pulliam MCHC (RBC) [Mass/Vol] 33.6 g/dL Normal 29.9-35.2 [facility] Comment on above: Performed By: #### C BC ####[facility] Gbkzior[address] [place], [place] [address]Dr. Garima Pulliam MCV (RBC) [Entitic vol] 91.5 fL Normal 80.0-94.0 [facility] Comment on above: Performed By: #### C BC ####[facility] Jlrpikybof[address] [place], [place] [address]Dr. Garima Pulliam MONO # 0.0 103/ul Critically low 0.3-0.8 [facility] Comment on above: Performed By: #### C BC ####[facility] [address]knx[address] [place] [address]Dr. Garima Pulliam Monocytes/100 WBC (Bld) 8.0 % Normal 1.7-12.0 The [facility] Comment on above: Performed By: #### C BC ####[facility] Ymnqyqeinv[address] [place], [place] [address]Dr. Garima Pulliam NEUT # 5.1 103/ul Normal 1.4-6.5 The [facility] Comment on above: Performed By: #### C BC ####[facility] Xlrfwveiwi[address] [place], [place] [address]Wy. Garima Pulliam Neutrophils/100 WBC (Bld) 62.8 % Normal 43.0-75.0 [facility] Comment on above: Performed By: #### C BC ####[facility] Mowfpiuaxm1395 [place], [place] [address]Fv. Garima Pulliam Platelet mean volume (Bld) [Entitic vol] 8.6 fL Critically low 9.5-13.5 [facility] Comment on above: Performed By: #### C BC ####[facility] Ynzpjp[address]xu[address] [place] [id number]. Garima Pulliam PLT 200 103/ul Normal 150-450 [facility] Comment on above: Performed By: #### C BC ####[facility] Vikolaozdi3162 [place] [id number]. Garima Pulliam RBC 4.69 106/ul Critically low 4.70-6.10 [facility] Comment on above: Performed By: #### C BC ####[facility] Pbbukwwbwf3623 [place], [place] [address]Nl. Garima Pulliam WBC 8.2 103/ul Normal 4.0-11.0 [facility] Comment on above: Performed By: #### C BC ####[facility] Aqfepzclbq7869 [place], [place] [address]Qx. Garima Pulliam [facility]-19 [facility]on SARS-CoV-2 (COVID-19) RNA MARIE+probe Ql (Unsp spec) Not detected Normal NOT DETECTED The [facility] Comment on above: [...] for this test is supported by the Service Representative of Health and Human Service's declaration that [...] be used). Performed By: #### C VDTBH ####[facility] Yarxjdonlu[address] [place], [place] [address]Dr. Garima Pulliam INFLUENZA A AND B AGon 12-25 INFLUANEGH SEE BELOW Normal [facility] Comment on above: Result Comment: Nega tive for Flu A protein angiten. Infection due to Flu A cannot be ruled out. Flu A angiten in the sample may be below the detection limit of the test. Performed By: #### I NFLUAB ####[facility] Npnpbcwpyl[address] [place], [place] [address]Dr. Garima Pulliam INFLUBNEGH SEE BELOW Normal [facility] Comment on above: Result Comment: Nega tive for Flu B protein antigen. Infection due to Flu B cannot be ruled out. Flu B antigen in the sample may be below the detection limit of the test. Performed By: #### I NFLUAB ####[facility] Rrisgyjiud[address] [place], [place] [address]Dr. Garima Pulliam INFLUENZA A AG Negative Normal NEGATIVE SEE COMMENT [facility] Comment on above: Performed By: #### I NFLUAB ####[facility] Ycxlnquohl[address] [place], [place] [address]Dr. renu [facility] INFLUENZA B AG Negative Normal NEGATIVE SEE COMMENT [facility] Comment on above: Performed By: #### I NFLUAB ####[facility] Qlafszttby[address] [place], [place] [address]Dr. Garima Pulliam PROF CHEM 8 (BAS METB)on Anion gap [Moles/Vol] 11.1 mmol/L Normal Th [facility] Comment on above: Performed By: #### B MODEL DRESSER, BMP, CMADM ####[facility] Jnhduyvqqh[address] [place], [place] [address]Dr. Garima Pulliam Calcium [Mass/Vol] 8.5 mg/dL Normal 8.5-10.1 The [facility] Comment on above: Performed By: #### B MODEL DRESSER, MARVIN, CMADM ####[facility] Hcngovyrsl36[address] [place] [phone]. Garima Pulliam Chloride [Moles/Vol] 106 mmol/L Normal 98-107 [facility] Comment on above: Performed By: #### B MODEL DRESSER, BMP, CMADM ####[facility] [address]wqvbzprj[address] [place] [address]Dr. Garima Pulliam CO2 [Moles/Vol] 27.4 mmol/L Normal 21.0-32.0 [facility] Comment on above: Performed By: #### B MODEL DRESSER, MARVIN, CMADM ####[facility] [address]ygjlaicrx[address] [place] [address]Dr. Garima Pulliam Creatinine [Mass/Vol] 0.65 mg/dL Critically low 0.70-1.30 [facility] Comment on above: Performed By: #### B MODEL DRESSER, MARVIN, CMADM ####[facility] [address]xmwlejm[address] [place] [address]Dr. Garima Pulliam EGFR-AF MOROCCAN >60 Normal >=60 [facility] Comment on above: Performed By: #### B MODEL DRESSER, BMP, CMADM ####[facility] Uwrqjnktzu[address] [place] [address]Dr. Garima Pulliam EGFR-NON AF MOROCCAN >60 Normal >=60 [facility] Comment on above: Performed By: #### B MODEL DRESSER, BMP, CMADM ####[facility] Cyvupgccne[address] [place] [address]Dr. Garima Pulliam Glucose [Mass/Vol] 140 mg/dL Critically high 74-106 [facility] Comment on above: Performed By: #### B MODEL DRESSER, BMP, CMADM ####[facility] Rqsf[address]rbjnz59[address] [place] [address]Dr. Garima Pulliam Potassium [Moles/Vol] 3.5 mmol/L Normal 3.5-5.1 [facility] Comment on above: Performed By: #### B MODEL DRESSER, BMP, CMADM ####[facility] Qotpnlnyeb[address]76 [place] [address]Dr. Garima Pulliam Sodium [Moles/Vol] 141 mmol/L Normal 136-145 [facility] Comment on above: Performed By: #### B MODEL DRESSER, BMP, CMADM ####[facility] Ncrplprkre[address] [place] [address]Dr. Garima Pulliam Urea nitrogen [Mass/Vol] 8.0 mg/dL Normal 7.0-18.0 [facility] Comment on above: Performed By: #### B MODEL DRESSER, BMP, CMADM ####[facility] Cfsiabezgm[address] [place] [address]Dr. Garima Pulliam Urea nitrogen/Creatinine [Mass ratio] 12.3 mg/mg Normal [facility] Comment on above: Performed By: #### B MODEL DRESSER, BMP, CMADM ####[facility] Qxbhttrlhg[address] [place], [place] [address]Dr. Garima Pulliam CARDIAC NASH ADMITon 023 CK [Catalytic activity/Vol] 165 U/L Normal 39-308 [facility] Comment on above: Performed By: #### B DAVID, CMADM ####[facility] Mjndkckofq2[address] [place], [place] [address]Dr. Garima Pulliam CK.MB [Mass/Vol] 6.48 ng/mL Critically high <=3.60 [facility] Comment on above: Performed By: #### B MP, CMADM ####[facility] Mqzcfaveuf[address] [place], [place] [address]Dr. Garima Pulliam HSTROP 11.7 pg/mL Normal 4.0-76.1 [facility] Comment on above: Result Comment: CUT- OFF POINTS HAVE BEEN ESTABLISHED BASED ON THE FOURTH UNIVERSAL DEFINITIONS OF MYOCARDIALINFARCTION. THE UPPER REFERENCE LIMIT (URL) OF TROPONIN, DEFINED THE 99TH PERCENTILE OFcTnI DISTRIBUTION IN A REFERENCE POPULATION, HAS BEEN CONFIRMED THE DECISION THRESHOLDFOR [place] DIAGNOSIS. Performed By: #### B MP, CMADM ####[facility] Wevxrmnvgp88[address] [place], [place] [address]Dr. Garima Pulliam DORIS 83 ng/mL Normal 16-96 [facility] Comment on above: Performed By: #### B MP, CMADM ####[facility] Zciyqjzblp[address] [place] [address]Dr. Garima Pulliam CBC AUTO DIFFon 12-10-2022 BASO # 0.0 103/ul Normal 0.0-0.1 [facility] Comment on above: Performed By: #### C BC ####[facility] Qsllqbefjt2[address] [place], [place] [address]Dr. Garima Heraclio Basophils/100 WBC (Bld) 0.3 % Normal 0.2-2.0 The [facility] Comment on above: Performed By: #### C BC ####[facility] Boqurckmef[address] [place], [place] [address]Dr. Gairma Pulliam EO # 0.1 103/ul Normal 0.0-0.7 [facility] Comment on above: Performed By: #### C BC ####[facility] Pxkhoymztz[address] [place], [place] [address]Dr. Garima Pluliam Eosinophils/100 WBC (Bld) 0.4 % Critically low 0.9-7.0 [facility] Comment on above: Performed By: #### C BC ####[facility] Wrvfwcbbmu[address] [place], [place] [address]Dr. Garima Pulliam Erythrocyte distribution width (RBC) [Ratio] 13.2 % Normal 11.0-15.0 [facility] Comment on above: Performed By: #### C BC ####[facility] Kknauyfxoi[address] [place], [place] [address]Dr. Garima Pulliam Hematocrit (Bld) [Volume fraction] 42.4 % Normal 42.0-54.0 [facility] Comment on above: Performed By: #### C BC ####[facility] Mcxmkgrauw[address] [place], [place] [address]Dr. Garima Pulliam Hemoglobin (Bld) [Mass/Vol] 14.4 g/dL Normal 14.0-18.0 [facility] Comment on above: Performed By: #### C BC ####[facility] [address]lsfsopkn[address] [place] [id number]. Garima Heraclio IG # 0.05 10e3/ul Critically high 0.00-0.03 The [facility] Comment on above: Performed By: #### C BC ####[facility] M[address]owylke[address] [place] [address]Dr. Garima Heraclio IG % 0.4 % Normal 0.0-0.5 [facility] Comment on above: Performed By: #### C BC ####[facility] Jsvtgqlwrh[address] [place], [place] [address]Dr. Garima Pulliam LYMPH # 0.8 103/ul Critically low 1.2-3.8 [facility] Comment on above: Performed By: #### C BC ####[facility] Xecvhihlhz[address] [place], [place] [address]Dr. Chapisrenu Pulliam Lymphocytes/100 WBC (Bld) 6.5 % Critically low 20.5-60.0 The [facility] Comment on above: Performed By: #### C BC ####[facility] Qmnhnuisrk[address] [place], [place] [address]Dr. Chapisrenu Pulliam MANUAL DIFF REQ NO Normal The [facility] Comment on above: Performed By: #### C BC ####[facility] Rkbnycrjhs[address] [place], [place] [address]DrAdalberto Garima Pulliam MCH (RBC) [Entitic mass] 30.5 pg Normal 25.9-34.0 [facility] Comment on above: Performed By: #### C BC ####[facility] Dzoydrrdfv[address] [place], [place] [address]DrAdalberto Garima Heraclio MCHC (RBC) [Mass/Vol] 34.0 g/dL Normal 29.9-35.2 [facility] Comment on above: Performed By: #### C BC ####[facility] Tfqvnoveyz[address] [place], [place] [address]DrAdalberto Garima Heraclio MCV (RBC) [Entitic vol] 89.8 fL Normal 80.0-94.0 [facility] Comment on above: Performed By: #### C BC ####[facility] Famdxpizkq[address] [place], [place] [address]Dr. Garima Pulliam MONO # 0.2 103/ul Critically low 0.3-0.8 [facility] Comment on above: Performed By: #### C BC ####[facility] Tvfjsathxf28[address] [place] [phone]. Garima Pulliam Monocytes/100 WBC (Bld) 2.0 % Normal 1.7-12.0 [facility] Comment on above: Performed By: #### C BC ####[facility] Pngfxphmop[address] [place] [address]Dr. Chapisrenu Heraclio NEUT # 10.5 103/ul Critically high 1.4-6.5 The [facility] Comment on above: Performed By: #### C BC ####[facility] [address]lfwczcat[address] [place] [address]Dr. Garima Pulliam Neutrophils/100 WBC (Bld) 90.4 % Critically high 43.0-75.0 [facility] Comment on above: Performed By: #### C BC ####[facility] Jqhpjuhyyo[address] [place] [address]Dr. Garima Pulliam Platelet mean volume (Bld) [Entitic vol] 9.4 fL Critically low 9.5-13.5 The [facility] Comment on above: Performed By: #### C BC ####[facility] Xdtmtvqzqf30[address] [place] [address]Dr. Garima Pulliam PLT 198 103/ul Normal 150-450 [facility] Comment on above: Performed By: #### C BC ####[facility] Tgwbbrefkj3745 [place] [address]Dr. Garima Pulliam RBC 4.72 106/ul Normal 4.70-6.10 The [facility] Comment on above: Performed By: #### C BC ####[facility] Lvgpavacyw75[address] [place] [phone]. Garima Pulliam WBC 11.6 103/ul Critically high 4.0-11.0 The [facility] Comment on above: Performed By: #### C BC ####[facility] B[address]udaqvs[address] [place] [address]DrAdalberto Pulliam PROF CHEM 8 (BAS METB)on Anion gap [Moles/Vol] 11.3 mmol/L Normal Th [facility] Comment on above: Performed By: #### B NANCY HERNANDEZ ####[facility] [address]cb[address]dewir[address] [place] [address]Dr. Garima Pulliam Calcium [Mass/Vol] 8.9 mg/dL Normal 8.5-10.1 [facility] Comment on above: Performed By: #### B NANCY HERNANDEZ ####[facility] [address]wwomlnmg[address] [place] [address]Dr. Garima Pulliam Chloride [Moles/Vol] 103 mmol/L Normal 98-107 [facility] Comment on above: Performed By: #### B NANCY HERNANDEZ ####[facility] Pejnhwetux[address] [place], [place] [address]Dr. Garima Pulliam CO2 [Moles/Vol] 28.2 mmol/L Normal 21.0-32.0 [facility] Comment on above: Performed By: #### NANCY Larkin MP ####[facility] [address]hrxzfwu[address] [place] [address]Dr. Chapisrenu Pulliam Creatinine [Mass/Vol] 0.60 mg/dL Critically low 0.70-1.30 [facility] Comment on above: Performed By: #### NANCY Larkin MP ####[facility] [address]pintshs[address] [place] [address]Dr. Garima Pulliam EGFR-AF MOROCCAN >60 Normal >=60 [facility] Comment on above: Performed By: #### NANCY Larkin MP ####[facility] [address]wjjygr[address] [place] [address]Dr. Garima Pulliam EGFR-NON AF MOROCCAN >60 Normal >=60 [facility] Comment on above: Performed By: #### NANCY Larkin MP ####[facility] Zkoosbolnv[address] [place], [place] [address]Dr. Garima Pulliam Glucose [Mass/Vol] 166 mg/dL Critically high 74-106 [facility] Comment on above: Performed By: #### B MP, CMADM ####[facility] Ofzzbihedf6432 [place] [address]Dr. Garima Pulliam Potassium [Moles/Vol] 3.5 mmol/L Normal 3.5-5.1 [facility] Comment on above: Performed By: #### B MP, CMADM ####[facility] Hqdjtjxgwv04[address] [place] [address]Dr. Garima Pulliam Sodium [Moles/Vol] 139 mmol/L Normal 136-145 The [facility] Comment on above: Performed By: #### B DAVID, CMADM ####[facility] Xyuizvrrjb[address] [place] [address]Dr. Garima Heraclio Urea nitrogen [Mass/Vol] 9.0 mg/dL Normal 7.0-18.0 [facility] Comment on above: Performed By: #### B DAVID, NANCY ####[facility] Qpfzlpexrl[address] [place], [place] [address]Dr. Garima Heraclio Urea nitrogen/Creatinine [Mass ratio] 15.0 mg/mg Normal [facility] Comment on above: Performed By: #### B DAVID, CMAANA ROSA ####[facility] L[address]zpyhaur[address] [place], [place] [address]Dr. Garima Pulliam XR CHEST 1 Von 12-10-2022 XR CHEST 1 V Normal [facility] BNPon 11-27-2022 Natriuretic peptide B (Bld) [Mass/Vol] 95.0 pg/mL Normal <=900.0 [facility] Comment on above: Performed By: #### C MP, HSTROPN, BNP ####[facility] Oibmyvkycd[address] [place], [place] [address]Dr. Garima Heraclio CBC AUTO DIFFon 11-27-2022 BASO # 0.0 103/ul Normal 0.0-0.1 [facility] Comment on above: Performed By: #### C BC ####[facility] Asyqfsjmso8[address] [place], [place] [address]Dr. Garima Heraclio Basophils/100 WBC (Bld) 0.2 % Normal 0.2-2.0 [facility] Comment on above: Performed By: #### C BC ####[facility] Uggnxtuzzg[address] [place] [phone]. Garima Pulliam EO # 0.2 103/ul Normal 0.0-0.7 [facility] Comment on above: Performed By: #### C BC ####[facility] Qyohosrrpo4404 [place] [phone]. Garima Pulliam Eosinophils/100 WBC (Bld) 2.0 % Normal 0.9-7.0 [facility] Comment on above: Performed By: #### C BC ####[facility] Pfgjmesvoy[address] [place], [place] [address]Dr. Garima Pulliam Erythrocyte distribution width (RBC) [Ratio] 13.2 % Normal 11.0-15.0 [facility] Comment on above: Performed By: #### C BC ####[facility] Cmskhvpiyu8[address] [place], [place] [address]Dr. Garima Pulliam Hematocrit (Bld) [Volume fraction] 42.4 % Normal 42.0-54.0 [facility] Comment on above: Performed By: #### C BC ####[facility] Kluqhklvsn[address] [place], [place] [address]Dr. Garima Pulliam Hemoglobin (Bld) [Mass/Vol] 14.4 g/dL Normal 14.0-18.0 [facility] Comment on above: Performed By: #### C BC ####[facility] Lnowezbqpf[address] [place], [place] [address]Dr. Garima Pulliam IG # 0.04 10e3/ul Critically high 0.00-0.03 The [facility] Comment on above: Performed By: #### C BC ####[facility] Aemxcefoan217[address] [place], [place] [address]Dr. Garima Pulliam IG % 0.4 % Normal 0.0-0.5 [facility] Comment on above: Performed By: #### C BC ####[facility] Iecoaepyhh[address] [place], [place] [address]Dr. Garima Pulliam LYMPH # 2.2 103/ul Normal 1.2-3.8 [facility] Comment on above: Performed By: #### C BC ####[facility] Uaxpobpgkl4150 [place] [phone]. Garima Pulliam Lymphocytes/100 WBC (Bld) 21.5 % Normal 20.5-60.0 [facility] Comment on above: Performed By: #### C BC ####[facility] Prmniwwytw044[address] [place] [phone]. Garima Heraclio MANUAL DIFF REQ NO Normal The [facility] Comment on above: Performed By: #### C BC ####[facility] Jikehqnjcp0174 [place] [phone]. Graima Heraclio MCH (RBC) [Entitic mass] 30.4 pg Normal 25.9-34.0 [facility] Comment on above: Performed By: #### C BC ####[facility] [address]zsfbzmbls[address] [place] [address]Dr. Garima Heraclio MCHC (RBC) [Mass/Vol] 34.0 g/dL Normal 29.9-35.2 [facility] Comment on above: Performed By: #### C BC ####[facility] Ptbvakwzpz64[address] [place] [phone]. Garima Pulliam MCV (RBC) [Entitic vol] 89.6 fL Normal 80.0-94.0 [facility] Comment on above: Performed By: #### C BC ####[facility] Olkvwmwnkl2317 [place] [phone]. Garima Pulliam MONO # 0.8 103/ul Normal 0.3-0.8 [facility] Comment on above: Performed By: #### C BC ####[facility] Zdfdgwcekw8956 [place] [phone]. Chapisrenu Pulliam Monocytes/100 WBC (Bld) 7.7 % Normal 1.7-12.0 [facility] Comment on above: Performed By: #### C BC ####[facility] Ofgwojdnxo[address] [place], [place] [address]Dr. Garima Pulliam NEUT # 7.0 103/ul Critically high 1.4-6.5 The [facility] Comment on above: Performed By: #### C BC ####[facility] Gzvruabrei9627 [place] [phone]. Garima Pulliam Neutrophils/100 WBC (Bld) 68.2 % Normal 43.0-75.0 [facility] Comment on above: Performed By: #### C BC ####[facility] Ecrybwsoqe1406 [place] [phone]. Chapisrenu Pulliam Platelet mean volume (Bld) [Entitic vol] 8.9 fL Critically low 9.5-13.5 [facility] Comment on above: Performed By: #### C BC ####[facility] Hbocggcwzq0438 [place] [address]Dr. Garima Pulliam PLT 222 103/ul Normal 150-450 [facility] Comment on above: Performed By: #### C BC ####[facility] Ivuwzocooq18[address] [place] [address]Dr. Garima Pulliam RBC 4.73 106/ul Normal 4.70-6.10 [facility] Comment on above: Performed By: #### C BC ####[facility] K[address]jfqmpanh[address] [place] [address]Dr. Garima Pulliam WBC 10.3 103/ul Normal 4.0-11.0 [facility] Comment on above: Performed By: #### C BC ####[facility] Oaprzsgfum[address] [place] [address]Dr. Garima Pulliam PROF 14(COMP METB)on 023 Albumin [Mass/Vol] 3.7 g/dL Normal 3.4-5.0 [facility] Comment on above: Performed By: #### C MP, HSTROPN, BNP ####[facility] Eyzrpxiows[address] [place] [address]Dr. Chapisrenu Pulliam Albumin/Globulin [Mass ratio] 1.5 {ratio} Normal [facility] Comment on above: Performed By: #### C MP, HSTROPN, BNP ####[facility] Zxqdyuafgu5[address] [place] [address]Dr. Garima Pulliam ALP [Catalytic activity/Vol] 79 U/L Normal 46-116 [facility] Comment on above: Performed By: #### C MP, HSTROPN, BNP ####[facility] Lcrzxaqwzf87[address] [place] [address]Dr. Garima Pulliam ALT [Catalytic activity/Vol] 32 U/L Normal 16-63 [facility] Comment on above: Performed By: #### C MP, HSTROPN, BNP ####[facility] Tnrdpoqczl7082 [place] [address]Dr. Garima Pulliam Anion gap [Moles/Vol] 9.5 mmol/L Normal [facility] Comment on above: Performed By: #### C MP, HSTROPN, BNP ####[facility] Loxczcfgtw[address] [place], [place] [address]Dr. Garima Pulliam AST [Catalytic activity/Vol] 25 U/L Normal 15-37 [facility] Comment on above: Performed By: #### C MP, HSTROPN, BNP ####[facility] Nwryzqbikt[address] [place], [place] [address]Dr. Chapislan Pulliam Bilirubin [Mass/Vol] 0.4 mg/dL Normal 0.2-1.0 [facility] Comment on above: Performed By: #### C MP, HSTROPN, BNP ####[facility] Nrdsizbbjg[address] [place], [place] [address]Dr. Garima Pulliam Calcium [Mass/Vol] 8.9 mg/dL Normal 8.5-10.1 [facility] Comment on above: Performed By: #### C MP, HSTROPN, BNP ####[facility] [address]qpoqkk[address] [place], [place] [address]Dr. Chapislan Pulliam Chloride [Moles/Vol] 103 mmol/L Normal 98-107 [facility] Comment on above: Performed By: #### C MP, HSTROPN, BNP ####[facility] L[address]jdnomiw[address] [place], [place] [address]Dr. Yilan Pulliam CO2 [Moles/Vol] 28.6 mmol/L Normal 21.0-32.0 [facility] Comment on above: Performed By: #### C MP, HSTROPN, BNP ####[facility] Zmtbhqjesx[address] [place] [address]Dr. Garima Pulliam Creatinine [Mass/Vol] 0.72 mg/dL Normal 0.70-1.30 [facility] Comment on above: Performed By: #### C MP, HSTROPN, BNP ####[facility] [address]jyjaxe[address] [place] [address]Dr. Garima Pulliam EGFR-AF MOROCCAN >60 Normal >=60 [facility] Comment on above: Performed By: #### C MP, HSTROPN, BNP ####[facility] [address]vbrvevixj[address] [place] [address]Dr. Garima Pulliam EGFR-NON AF MOROCCAN >60 Normal >=60 [facility] Comment on above: Performed By: #### C MP, HSTROPN, BNP ####[facility] [address] [place] [address]Dr. Garima Pulliam Globulin (S) [Mass/Vol] 2.5 g/dL Normal [facility] Comment on above: Performed By: #### C MP, HSTROPN, BNP ####[facility] Pyiitchzcw[address] [place], [place] [address]Dr. Garima Pulliam Glucose [Mass/Vol] 114 mg/dL Critically high 74-106 T [facility] Comment on above: Performed By: #### C MP, HSTROPN, BNP ####[facility] Xgqupbhigk[address] [place], [place] [address]Dr. Garima Pulliam Potassium [Moles/Vol] 4.1 mmol/L Normal 3.5-5.1 [facility] Comment on above: Performed By: #### C MP, HSTROPN, BNP ####[facility] Oglteuvejb[address] [place], [place] [address]Dr. Garima Pulliam Protein [Mass/Vol] 6.2 g/dL Critically low 6.4-8.2 Th [facility] Comment on above: Performed By: #### C MP, HSTROPN, BNP ####[facility] Zableofobv[address] [place], [place] [address]Dr. Yilan Pulliam Sodium [Moles/Vol] 137 mmol/L Normal 136-145 The [facility] Comment on above: Performed By: #### C MP, HSTROPN, BNP ####[facility] [address] [place] [address]Dr. Garima Pulliam Urea nitrogen [Mass/Vol] 13.0 mg/dL Normal 7.0-18.0 [facility] Comment on above: Performed By: #### C MP, HSTROPN, BNP ####[facility] [address] [place] [address]Dr. Garima Pulliam Urea nitrogen/Creatinine [Mass ratio] 18.1 mg/mg Normal [facility] Comment on above: Performed By: #### C MP, HSTROPN, BNP ####[facility] Iasotshdyd[address] [place], [place] [address]Dr. Garima Pulliam TROPONIN, HIGH SENSITIVITYon 11-27-2022 HSTROP 11.8 pg/mL Normal 4.0-76.1 [facility] Comment on above: Result Comment: CUT- OFF POINTS HAVE BEEN ESTABLISHED BASED ON THE FOURTH UNIVERSAL DEFINITIONS OF MYOCARDIALINFARCTION. THE UPPER REFERENCE LIMIT (URL) OF TROPONIN, DEFINED THE 99TH PERCENTILE OFcTnI DISTRIBUTION IN A REFERENCE POPULATION, HAS BEEN CONFIRMED THE DECISION THRESHOLDFOR [place] DIAGNOSIS. Performed By: #### C MP, HSTROPN, BNP ####[facility] Uhsdffym[address] [place], [place] [address]Dr. Garima Pulliam XR CHEST 1 Von 11-27-2022 XR CHEST 1 V Normal [facility] BNPon 11-20-2022 Natriuretic peptide B (Bld) [Mass/Vol] 73.0 pg/mL Normal <=900.0 The [facility] Comment on above: Performed By: #### B MP, HSTROPN, BNP ####[facility] Bmoexxaskv[address] [place], [place] [address]Dr. Garima Pulliam CBC AUTO DIFFon 11-20-2022 BASO # 0.0 103/ul Normal 0.0-0.1 [facility] Comment on above: Performed By: #### C BC ####[facility] [address]dtpsx[address] [place] [id number]. Garima Pulliam Basophils/100 WBC (Bld) 0.3 % Normal 0.2-2.0 [facility] Comment on above: Performed By: #### C BC ####[facility] Gq[address]mh[address] [place] [phone]. Garima Pulliam EO # 0.2 103/ul Normal 0.0-0.7 [facility] Comment on above: Performed By: #### C BC ####[facility] [address]mejuokem[address] [place] [address]Dr. Garima Pulliam Eosinophils/100 WBC (Bld) 2.1 % Normal 0.9-7.0 The [facility] Comment on above: Performed By: #### C BC ####[facility] Pywbbkquhk[address] [place], [place] [address]Dr. Garima Pulliam Erythrocyte distribution width (RBC) [Ratio] 13.2 % Normal 11.0-15.0 The [facility] Comment on above: Performed By: #### C BC ####[facility] Dgabzblalo[address] [place], [place] [address]Dr. Garima Pulliam Hematocrit (Bld) [Volume fraction] 43.4 % Normal 42.0-54.0 The [facility] Comment on above: Performed By: #### C BC ####[facility] [address] [place], [place] [id number]. Garima Pulliam Hemoglobin (Bld) [Mass/Vol] 14.6 g/dL Normal 14.0-18.0 The [facility] Comment on above: Performed By: #### C BC ####[facility] [address] [place] [id number]. Garima Pulliam IG # 0.02 10e3/ul Normal 0.00-0.03 The [facility] Comment on above: Performed By: #### C BC ####[facility] U[address] [place] [address]Dr. Garima Pulliam IG % 0.2 % Normal 0.0-0.5 The [facility] Comment on above: Performed By: #### C BC ####[facility] Iwexl[address] [place] [phone]. Garima Heraclio LYMPH # 2.1 103/ul Normal 1.2-3.8 The [facility] Comment on above: Performed By: #### C BC ####[facility] F[address]qtzmi[address] [place] [phone]. Garima Heraclio Lymphocytes/100 WBC (Bld) 19.2 % Critically low 20.5-60.0 The [facility] Comment on above: Performed By: #### C BC ####[facility] [address]zl[address] [place] [phone]. Chapisrenu Pulliam MANUAL DIFF REQ NO Normal [facility] Comment on above: Performed By: #### C BC ####[facility] [address]kfhofapdy45[address] [place] [phone]. Garima Heraclio MCH (RBC) [Entitic mass] 30.4 pg Normal 25.9-34.0 The [facility] Comment on above: Performed By: #### C BC ####[facility] [address]yl[address] [place] [address]Dr. Garima Pulliam MCHC (RBC) [Mass/Vol] 33.6 g/dL Normal 29.9-35.2 [facility] Comment on above: Performed By: #### C BC ####[facility] [address] [place] [phone]. Garima Heraclio MCV (RBC) [Entitic vol] 90.4 fL Normal 80.0-94.0 The [facility] Comment on above: Performed By: #### C BC ####[facility] [address]feiu[address] [place] [id number]. Garima Heraclio MONO # 0.6 103/ul Normal 0.3-0.8 The [facility] Comment on above: Performed By: #### C BC ####[facility] E[address]qc[address] [place] [address]Dr. Garima Heraclio Monocytes/100 WBC (Bld) 5.8 % Normal 1.7-12.0 The [facility] Comment on above: Performed By: #### C BC ####[facility] [address] [place], [place] [address]Pn. Garima Pulliam NEUT # 7.8 103/ul Critically high 1.4-6.5 The [facility] Comment on above: Performed By: #### C BC ####[facility] Okvxbanbwx[address] [place] [phone]. Garima Pulliam Neutrophils/100 WBC (Bld) 72.4 % Normal 43.0-75.0 [facility] Comment on above: Performed By: #### C BC ####[facility] W[address]ecvcu[address] [place] [phone]. Garima Pulliam Platelet mean volume (Bld) [Entitic vol] 8.7 fL Critically low 9.5-13.5 The [facility] Comment on above: Performed By: #### C BC ####[facility] [address]cy[address] [place] [phone]. Garima Pulliam PLT 184 103/ul Normal 150-450 The [facility] Comment on above: Performed By: #### C BC ####[facility] Ajmlxrgmwd[address] [place], [place] [address]Qa. Garima Pulliam RBC 4.80 106/ul Normal 4.70-6.10 The [facility] Comment on above: Performed By: #### C BC ####[facility] B[address]ubunlxe[address] [place] [phone]. Garima Pulliam WBC 10.8 103/ul Normal 4.0-11.0 The [facility] Comment on above: Performed By: #### C BC ####[facility] Iej[address]lcqfbf[address] [place] [phone]. Garima Pulliam Cov[facility]on [facility]-24 SARS-CoV-2 (COVID-19) RNA MARIE+probe Ql (Unsp spec) Not detected Normal NOT DETECTED The [facility] Comment on above: [...] for this test is supported by the Service Representative of Health and Human Service's declaration that [...] be used). Performed By: #### C VDTBH ####[facility] Ncsgjb[address]cu[address] [place], [place] [address]Dr. Garima Pulliam INFLUENZA A AND B AGon 11-20 [facility] SEE BELOW Normal [facility] Comment on above: Result Comment: Nega tive for Flu A protein angiten. Infection due to Flu A cannot be ruled out. Flu A angiten in the sample may be below the detection limit of the test. Performed By: #### I NFLUAB ####[facility] Ezxesvcyoj[address] [place], [place] [address]Dr. Garima Pulliam INFLUBNEGH SEE BELOW Normal [facility] Comment on above: Result Comment: Nega tive for Flu B protein antigen. Infection due to Flu B cannot be ruled out. Flu B antigen in the sample may be below the detection limit of the test. Performed By: #### I NFLUAB ####[facility] Msqqjukuce[address] [place], [place] [address]Dr. Garima Pulliam INFLUENZA A AG Negative Normal NEGATIVE SEE COMMENT The [facility] Comment on above: Performed By: #### I NFLUAB ####[facility] Ilijrynxsi8060[address] [place], [place] [address]Dr. Garima [facility] INFLUENZA B AG Negative Normal NEGATIVE SEE COMMENT The [facility] Comment on above: Performed By: #### I NFLUAB ####[facility] Mgjufwmswf[address] [place], [place] [address]Dr. Garima Pulliam PROF CHEM 8 (BAS METB)on Anion gap [Moles/Vol] 8.2 mmol/L Normal [facility] Comment on above: Performed By: #### B MP, HSTROPN, BNP ####[facility] V[address]prdsm[address] [place] [address]Dr. Garima Pulliam Calcium [Mass/Vol] 8.7 mg/dL Normal 8.5-10.1 [facility] Comment on above: Performed By: #### B MP, HSTROPN, BNP ####[facility] [address]rsfzlf[address] [place] [address]Dr. Garima Pulliam Chloride [Moles/Vol] 103 mmol/L Normal 98-107 [facility] Comment on above: Performed By: #### B MP, HSTROPN, BNP ####[facility] Clclnothue[address] [place], [place] [address]Dr. Garima Pulliam CO2 [Moles/Vol] 29.4 mmol/L Normal 21.0-32.0 The [facility] Comment on above: Performed By: #### B MP, HSTROPN, BNP ####[facility] Atzcy[address]ooq[address] [place], [place] [address]Dr. Garima Pulliam Creatinine [Mass/Vol] 0.69 mg/dL Critically low 0.70-1.30 [facility] Comment on above: Performed By: #### B MP, HSTROPN, BNP ####[facility] Pdxfxfebim[address] [place] [address]Dr. Garima Pulliam EGFR-AF MOROCCAN >60 Normal >=60 The [facility] Comment on above: Performed By: #### B MP, HSTROPN, BNP ####[facility] Perssopayy[address] [place], [place] [address]Dr. Garima Pulliam EGFR-NON AF MOROCCAN >60 Normal >=60 [facility] Comment on above: Performed By: #### B MP, HSTROPN, BNP ####[facility] [address]kbwq[address] [place] [address]Dr. Garima Pulliam Glucose [Mass/Vol] 209 mg/dL Critically high 74-106 T [facility] Comment on above: Performed By: #### B MP, HSTROPN, BNP ####[facility] Pasdqmhtve[address] [place] [address]Dr. Garima Pulliam Potassium [Moles/Vol] 3.6 mmol/L Normal 3.5-5.1 [facility] Comment on above: Performed By: #### B MP, HSTROPN, BNP ####[facility] Mrblphrybj[address] [place] [address]Dr. Garima Pulliam Sodium [Moles/Vol] 137 mmol/L Normal 136-145 The [facility] Comment on above: Performed By: #### B MP, HSTROPN, BNP ####[facility] [address]hdk[address] [place] [address]Dr. Garima Pulliam Urea nitrogen [Mass/Vol] 11.0 mg/dL Normal 7.0-18.0 [facility] Comment on above: Performed By: #### B MP, HSTROPN, BNP ####[facility] [address]utffstr[address] [place] [address]Dr. Garima Pulliam Urea nitrogen/Creatinine [Mass ratio] 15.9 mg/mg Normal [facility] Comment on above: Performed By: #### B MP, HSTROPN, BNP ####[facility] [address]bce[address] [place] [address]Dr. Garima Pulliam TROPONIN, HIGH SENSITIVITYon 11-20-2022 HSTROP 8.7 pg/mL Normal 4.0-76.1 [facility] Comment on above: Result Comment: CUT- OFF POINTS HAVE BEEN ESTABLISHED BASED ON THE FOURTH UNIVERSAL DEFINITIONS OF MYOCARDIALINFARCTION. THE UPPER REFERENCE LIMIT (URL) OF TROPONIN, DEFINED THE 99TH PERCENTILE OFcTnI DISTRIBUTION IN A REFERENCE POPULATION, HAS BEEN CONFIRMED THE DECISION THRESHOLDFOR NH DIAGNOSIS. Performed By: #### B MP, HSTROPN, BNP ####[facility] [address]uqr[address] [place] [address]Dr. Garima Pulliam XR CHEST 1 Von 11-20-2022 XR CHEST 1 V Normal [facility] XR CHEST 1 Von 10-02-2022 XR CHEST 1 V Normal [facility] BNPon 09-29-2022 Natriuretic peptide B (Bld) [Mass/Vol] 107.0 pg/mL Normal <=900.0 The [facility] Comment on above: Performed By: #### C MP, BNP, CMADM ####[facility] Inieklresa[address] [place] [address]Dr. Garima Pulliam CARDIAC NASH ADMITon 022 CK [Catalytic activity/Vol] 190 U/L Normal 39-308 [facility] Comment on above: Performed By: #### C MP, BNP, CMADM ####[facility] S[address]ogtrsle[address] [place] [address]Dr. Garima Heraclio CK.MB [Mass/Vol] 11.11 ng/mL Critically high <=3.60 Th [facility] Comment on above: Performed By: #### C MP, BNP, CMADM ####[facility] [address]kfxfifi[address] [place] [address]Dr. Garima Pulliam HSTROP 11.8 pg/mL Normal 4.0-76.1 [facility] Comment on above: Result Comment: CUT- OFF POINTS HAVE BEEN ESTABLISHED BASED ON THE FOURTH UNIVERSAL DEFINITIONS OF MYOCARDIALINFARCTION. THE UPPER REFERENCE LIMIT (URL) OF TROPONIN, DEFINED THE 99TH PERCENTILE OFcTnI DISTRIBUTION IN A REFERENCE POPULATION, HAS BEEN CONFIRMED THE DECISION THRESHOLDFOR [place] DIAGNOSIS. Performed By: #### C MP, BNP, CMADM ####[facility] Ptzeskucpo[address] [place] [address]Dr. Garima Pulliam DORIS 133 ng/mL Critically high 16-96 The [facility] Comment on above: Performed By: #### C MP, BNP, CMADM ####[facility] Wbxtyongqq[address] [place] [address]Dr. Garima Heraclio CBC AUTO DIFFon 09-29-2022 BASO # 0.0 103/ul Normal 0.0-0.1 [facility] Comment on above: Performed By: #### C BC ####[facility] Lnbtawkmre[address] [place] [address]Dr. Garima Heraclio Basophils/100 WBC (Bld) 0.2 % Normal 0.2-2.0 [facility] Comment on above: Performed By: #### C BC ####[facility] Rertxtmpti[address] [place] [phone]. Garima Pulliam EO # 0.1 103/ul Normal 0.0-0.7 [facility] Comment on above: Performed By: #### C BC ####[facility] Tywyiulzhu[address]94 [place] [phone]. Garima Pulliam Eosinophils/100 WBC (Bld) 1.4 % Normal 0.9-7.0 [facility] Comment on above: Performed By: #### C BC ####[facility] K[address]yjkmwhg[address] [place], [place] [address]Dr. Garima Pulliam Erythrocyte distribution width (RBC) [Ratio] 13.7 % Normal 11.0-15.0 [facility] Comment on above: Performed By: #### C BC ####[facility] Kockwdbznd[address] [place], [place] [address]Dr. Garima Pulliam Hematocrit (Bld) [Volume fraction] 45.4 % Normal 42.0-54.0 [facility] Comment on above: Performed By: #### C BC ####[facility] Kmewxqcxfh[address] [place], [place] [address]Dr. Garima Pulliam Hemoglobin (Bld) [Mass/Vol] 14.8 g/dL Normal 14.0-18.0 [facility] Comment on above: Performed By: #### C BC ####[facility] Jqrwwhfzcv[address] [place], [place] [address]Dr. Garima Pulliam IG # 0.04 10e3/ul Critically high 0.00-0.03 [facility] Comment on above: Performed By: #### C BC ####[facility] Iajtxbzhrv[address] [place], [place] [address]Dr. Garima Pulliam IG % 0.5 % Normal 0.0-0.5 [facility] Comment on above: Performed By: #### C BC ####[facility] Xltzcynlfu63[address] [place], [place] [address]Dr. Garima Pulliam LYMPH # 1.1 103/ul Critically low 1.2-3.8 [facility] Comment on above: Performed By: #### C BC ####[facility] Yfzvsmkrih6[address] [place] [phone]. Garima Pulliam Lymphocytes/100 WBC (Bld) 12.7 % Critically low 20.5-60.0 [facility] Comment on above: Performed By: #### C BC ####[facility] Heozxdgyts8416 [place] [phone]. Chapisreun Pulliam MANUAL DIFF REQ NO Normal [facility] Comment on above: Performed By: #### C BC ####[facility] [address] [place], [place] [address]Dr. Garima Heraclio MCH (RBC) [Entitic mass] 30.0 pg Normal 25.9-34.0 [facility] Comment on above: Performed By: #### C BC ####[facility] Imhelljocr[address] [place], [place] [address]Dr. Garima Heraclio MCHC (RBC) [Mass/Vol] 32.6 g/dL Normal 29.9-35.2 [facility] Comment on above: Performed By: #### C BC ####[facility] Peda[address] [place], [place] [address]Dr. Garima Heraclio MCV (RBC) [Entitic vol] 91.9 fL Normal 80.0-94.0 [facility] Comment on above: Performed By: #### C BC ####[facility] Jxsbxmhpey[address] [place], [place] [address]Dr. Garima Pulliam MONO # 0.4 103/ul Normal 0.3-0.8 [facility] Comment on above: Performed By: #### C BC ####[facility] Sp[address]hef[address] [place], [place] [address]Dr. Chapisrenu Pulliam Monocytes/100 WBC (Bld) 4.8 % Normal 1.7-12.0 [facility] Comment on above: Performed By: #### C BC ####[facility] [address]rt[address]whxfb[address] [place], [place] [address]Dr. Garima Pulliam NEUT # 7.1 103/ul Critically high 1.4-6.5 The [facility] Comment on above: Performed By: #### C BC ####[facility] Zcaasqsmmo495[address] [place], [place] [address]Vt. Garima Pulliam Neutrophils/100 WBC (Bld) 80.4 % Critically high 43.0-75.0 [facility] Comment on above: Performed By: #### C BC ####[facility] Prftzzmpji7036 [place] [phone]. Garima Pulliam Platelet mean volume (Bld) [Entitic vol] 9.1 fL Critically low 9.5-13.5 [facility] Comment on above: Performed By: #### C BC ####[facility] [address]ct[address]xr25[address] [place] [phone]. Garima Pulliam PLT 200 103/ul Normal 150-450 [facility] Comment on above: Performed By: #### C BC ####[facility] Wcekrjprqc0748 [place] [phone]. Garima Pulliam RBC 4.94 106/ul Normal 4.70-6.10 [facility] Comment on above: Performed By: #### C BC ####[facility] Lgqsoybpml9134 [place] [phone]. Garima Pulliam WBC 8.9 103/ul Normal 4.0-11.0 [facility] Comment on above: Performed By: #### C BC ####[facility] Q[address]yyrmtad[address] [place] [phone]. Garima Pulliam Covid-19 PCR (CVDTB)on SARS-CoV-2 (COVID-19) RNA MARIE+probe Ql (Unsp spec) Not detected Normal NOT DETECTED [facility] Comment on above: [...] for this test is supported by the Service Representative of Health and Human Service's declaration that [...] be used). Performed By: #### C VDTBH ####[facility] [address]jcowtwi[address] [place] [address]Dr. Garima Pulliam LACTATE/LACTIC ACIDon 2021 Lactate [Moles/Vol] 1.7 mmol/L Normal 0.4-1.9 [facility] Comment on above: Performed By: #### L ACT ####[facility] Mrcjbixbci[address] [place], [place] [address]Dr. Garima Pulliam PROF 14(COMP METB)on 022 Albumin [Mass/Vol] 3.8 g/dL Normal 3.4-5.0 [facility] Comment on above: Performed By: #### C MP, BNP, CMADM ####[facility] Tmysqgfpvw[address] [place], [place] [address]Dr. Garima Pulliam Albumin/Globulin [Mass ratio] 1.5 {ratio} Normal [facility] Comment on above: Performed By: #### C MP, BNP, CMADM ####[facility] [address]ec[address]xwn[address] [place] [address]Dr. Garima Pulliam ALP [Catalytic activity/Vol] 62 U/L Normal 46-116 [facility] Comment on above: Performed By: #### C MP, BNP, CMADM ####[facility] Sujcdfrnea26[address] [place] [address]Dr. Garima Pulliam ALT [Catalytic activity/Vol] 37 U/L Normal 16-63 [facility] Comment on above: Performed By: #### C MP, BNP, CMADM ####[facility] Ndpdflllsn76[address] [place] [address]Dr. Garima Pulliam Anion gap [Moles/Vol] 8.0 mmol/L Normal [facility] Comment on above: Performed By: #### C MP, BNP, CMADM ####[facility] Xvbagpamue04[address] [place] [address]Dr. Garima Pulliam AST [Catalytic activity/Vol] 20 U/L Normal 15-37 [facility] Comment on above: Performed By: #### C MP, BNP, CMADM ####[facility] Hunfjjhaml[address] [place] [address]Dr. Garima Pullaim Bilirubin [Mass/Vol] 0.6 mg/dL Normal 0.2-1.0 [facility] Comment on above: Performed By: #### C MP, BNP, CMADM ####[facility] Jylcyrvqtu[address] [place] [address]Dr. Garima Pulliam Calcium [Mass/Vol] 9.1 mg/dL Normal 8.5-10.1 [facility] Comment on above: Performed By: #### C MP, BNP, CMADM ####[facility] Sslxicqdty[address] [place], [place] [address]Dr. Garima Pulliam Chloride [Moles/Vol] 103 mmol/L Normal 98-107 [facility] Comment on above: Performed By: #### C MP, BNP, CMADM ####[facility] Iugfibqfha[address] [place], [place] [address]Dr. Garima Pulliam CO2 [Moles/Vol] 31.8 mmol/L Normal 21.0-32.0 [facility] Comment on above: Performed By: #### C MP, BNP, CMADM ####[facility] [address]uxrlvifji[address] [place], [place] [address]Dr. Garima Pulliam Creatinine [Mass/Vol] 0.63 mg/dL Critically low 0.70-1.30 [facility] Comment on above: Performed By: #### C MP, BNP, CMADM ####[facility] Pzfdflslox[address] [place], [place] [address]Dr. Garima Pulliam EGFR-AF MOROCCAN >60 Normal >=60 [facility] Comment on above: Performed By: #### C MP, BNP, CMADM ####[facility] Absrsaipfp[address] [place], [place] [address]Dr. Garima Pulliam EGFR-NON AF MOROCCAN >60 Normal >=60 [facility] Comment on above: Performed By: #### C MP, BNP, CMADM ####[facility] [address]ermuqnhni[address] [place] [address]Dr. Garima Pulliam Globulin (S) [Mass/Vol] 2.6 g/dL Normal [facility] Comment on above: Performed By: #### C MP, BNP, CMADM ####[facility] [address]hyaqxolna[address] [place] [address]Dr. Garima Pulliam Glucose [Mass/Vol] 103 mg/dL Normal 74-106 [facility] Comment on above: Performed By: #### C MP, BNP, CMADM ####[facility] Evcnafkahl[address] [place] [address]Dr. Garima Pulliam Potassium [Moles/Vol] 3.8 mmol/L Normal 3.5-5.1 [facility] Comment on above: Performed By: #### C MP, BNP, CMADM ####[facility] [address]oeqjszt[address] [place] [address]Dr. Garima Pulliam Protein [Mass/Vol] 6.4 g/dL Normal 6.4-8.2 [facility] Comment on above: Performed By: #### C MP, BNP, CMADM ####[facility] [address] [place] [address]Dr. Garima Pulliam Sodium [Moles/Vol] 139 mmol/L Normal 136-145 [facility] Comment on above: Performed By: #### C MP, BNP, CMADM ####[facility] [address] [place] [address]Dr. Garima Pulliam Urea nitrogen [Mass/Vol] 7.0 mg/dL Normal 7.0-18.0 The [facility] Comment on above: Performed By: #### C MP, BNP, CMADM ####[facility] [address] [place] [address]Dr. Garima Pulliam Urea nitrogen/Creatinine [Mass ratio] 11.1 mg/mg Normal [facility] Comment on above: Performed By: #### C MP, BNP, CMADM ####[facility] [address]pbqcmw[address] [place] [address]Dr. Garima Pulliam PROTIMEon 09-29-2022 INR Coag (PPP) [Relative time] 1.14 {INR} Normal [facility] Comment on above: Performed By: #### P T, PTT ####[facility] Ylmmebr[address] [place], [place] [address]Dr. Garima Pulliam INR GUIDELINES SEE BELOW Normal [facility] Comment on above: Result Comment: WESLEY RED INR: 2.0 - 3.0 CONDITIONS NOT LISTED BELOW 2.5 - 3.5 FOR PROSTHETIC HEART VALVE REPLACEMENT 2.5 - 3.5 RECURRENT THROMBOSIS Performed By: #### P T, PTT ####[facility] Crouphuk[address] [place], [place] [address]Dr. Garima Pulliam PT Coag (PPP) [Time] 12.2 s Critically high 9.0-11.6 The [facility] Comment on above: Performed By: #### P T, PTT ####[facility] Hfenngqxvr[address] [place], [place] [address]Dr. Garima Pulliam PTTon 09-29-2022 aPTT Coag (Bld) [Time] 29.3 s Normal 22.3-36.2 The [facility] Comment on above: Performed By: #### P T, PTT ####[facility] Bbrxmpaopj[address] [place], [place] [address]Dr. Garima Pulliam XR CHEST 1 Von 09-29-2022 XR CHEST 1 V Normal The [facility] CBC AUTO DIFFon 09-26-2022 BASO # 0.0 103/ul Normal 0.0-0.1 The [facility] Comment on above: Performed By: #### C BC ####[facility] Mmmznakego[address] [place], [place] [address]Dr. Garima Pulliam Basophils/100 WBC (Bld) 0.2 % Normal 0.2-2.0 The [facility] Comment on above: Performed By: #### C BC ####[facility] Qhbcpdfifg52[address] [place], [place] [address]Dr. Garima Pulliam EO # 0.1 103/ul Normal 0.0-0.7 [facility] Comment on above: Performed By: #### C BC ####[facility] Gstiiixsim[address] [place], [place] [address]Dr. Garima Pulliam Eosinophils/100 WBC (Bld) 1.0 % Normal 0.9-7.0 [facility] Comment on above: Performed By: #### C BC ####[facility] Xifayvfpge[address] [place], [place] [address]Dr. Garima Pulliam Erythrocyte distribution width (RBC) [Ratio] 13.4 % Normal 11.0-15.0 [facility] Comment on above: Performed By: #### C BC ####[facility] Joudlfandb[address] [place], [place] [address]Dr. aGrima Pulliam Hematocrit (Bld) [Volume fraction] 46.3 % Normal 42.0-54.0 [facility] Comment on above: Performed By: #### C BC ####[facility] Ykkrsheiwn[address] [place], [place] [address]Dr. Garima Pulliam Hemoglobin (Bld) [Mass/Vol] 15.3 g/dL Normal 14.0-18.0 [facility] Comment on above: Performed By: #### C BC ####[facility] Dcnumzawoz[address] [place], [place] [address]Dr. Garima Pulliam IG # 0.05 10e3/ul Critically high 0.00-0.03 [facility] Comment on above: Performed By: #### C BC ####[facility] Zxmlcfwkjx0140[address] [place], [place] [address]Dr. Garima Pulliam IG % 0.4 % Normal 0.0-0.5 [facility] Comment on above: Performed By: #### C BC ####[facility] Izllfqsvcy5[address] [place], [place] [address]Dr. Garima Pulliam LYMPH # 1.7 103/ul Normal 1.2-3.8 The [facility] Comment on above: Performed By: #### C BC ####[facility] Xzkydyewok05[address] [place], [place] [address]Dr. Garima Pulliam Lymphocytes/100 WBC (Bld) 12.7 % Critically low 20.5-60.0 The [facility] Comment on above: Performed By: #### C BC ####[facility] [address] [place] [address]DrAdalberto Pulliam MANUAL DIFF REQ NO Normal [facility] Comment on above: Performed By: #### C BC ####[facility] [address]xasqoltto[address] [place] [address]Dr. Garima Pulliam MCH (RBC) [Entitic mass] 30.1 pg Normal 25.9-34.0 [facility] Comment on above: Performed By: #### C BC ####[facility] Krjnxksgxo7[address] [place], [place] [address]Dr. Garima Pulliam MCHC (RBC) [Mass/Vol] 33.0 g/dL Normal 29.9-35.2 The [facility] Comment on above: Performed By: #### C BC ####[facility] Nulhdiyufg[address] [place], [place] [address]DrAdalberto Pulliam MCV (RBC) [Entitic vol] 91.1 fL Normal 80.0-94.0 The [facility] Comment on above: Performed By: #### C BC ####[facility] Ybomsyscju[address] [place], [place] [address]DrAdalberto Pulliam MONO # 0.9 103/ul Critically high 0.3-0.8 [facility] Comment on above: Performed By: #### C BC ####[facility] Hqtsbmqyua9[address] [place], [place] [address]DrAdalberto Pulliam Monocytes/100 WBC (Bld) 7.0 % Normal 1.7-12.0 The [facility] Comment on above: Performed By: #### C BC ####[facility] Mbpigfsupp325[address] [place], [place] [address]DrAdalberto Pulliam NEUT # 10.4 103/ul Critically high 1.4-6.5 The [facility] Comment on above: Performed By: #### C BC ####[facility] Utgubdaokn[address] [place], [place] [address]DrAdalberto Pulliam Neutrophils/100 WBC (Bld) 78.7 % Critically high 43.0-75.0 [facility] Comment on above: Performed By: #### C BC ####[facility] [address] [place] [address]Dr. Garima Pulliam Platelet mean volume (Bld) [Entitic vol] 8.9 fL Critically low 9.5-13.5 The [facility] Comment on above: Performed By: #### C BC ####[facility] [address] [place] [address]Dr. Garima Pulliam PLT 195 103/ul Normal 150-450 [facility] Comment on above: Performed By: #### C BC ####[facility] Viukgsvwrs[address] [place], [place] [address]Dr. Garima Pulliam RBC 5.08 106/ul Normal 4.70-6.10 [facility] Comment on above: Performed By: #### C BC ####[facility] Slcmpqpjnm[address] [place], [place] [address]Dr. Garima Pulliam WBC 13.2 103/ul Critically high 4.0-11.0 The [facility] Comment on above: Performed By: #### C BC ####[facility] Hmjqjmsska[address] [place], [place] [address]Dr. Garima Pulliam PROF 14(COMP METB)on 022 Albumin [Mass/Vol] 3.5 g/dL Normal 3.4-5.0 [facility] Comment on above: Performed By: #### C DAVID HSTROPN ####[facility] [address] [place] [address]Dr. Garima Pulliam Albumin/Globulin [Mass ratio] 1.2 {ratio} Normal [facility] Comment on above: Performed By: #### C RAFAT HERNANDEZTROPN ####[facility] [address] [place] [address]Dr. Garima Pulliam ALP [Catalytic activity/Vol] 71 U/L Normal 46-116 The [facility] Comment on above: Performed By: #### C DAVID HSTROPN ####[facility] [address] [place] [address]Dr. Garima Pulliam ALT [Catalytic activity/Vol] 37 U/L Normal 16-63 [facility] Comment on above: Performed By: #### C DAVID, HSTROPN ####[facility] [address]zvguo[address] [place] [address]Dr. Garima Pulliam Anion gap [Moles/Vol] 4.8 mmol/L Normal [facility] Comment on above: Performed By: #### C DAVID, HSTROPN ####[facility] Cqmszpkbrj[address] [place], [place] [address]Dr. Garima Pulliam AST [Catalytic activity/Vol] 21 U/L Normal 15-37 The [facility] Comment on above: Performed By: #### C DAVID, HSTROPN ####[facility] Eafsuzvfxm[address] [place], [place] [address]Dr. Garima Pulliam Bilirubin [Mass/Vol] 0.3 mg/dL Normal 0.2-1.0 The [facility] Comment on above: Performed By: #### C DAVID, HSTROPN ####[facility] [address] [place] [address]Dr. Garima Pulliam Calcium [Mass/Vol] 8.9 mg/dL Normal 8.5-10.1 [facility] Comment on above: Performed By: #### C DAVID, HSTROPN ####[facility] [address] [place] [address]Dr. Garima Pulliam Chloride [Moles/Vol] 106 mmol/L Normal 98-107 [facility] Comment on above: Performed By: #### C DAVID, HSTROPN ####[facility] [address]udl[address] [place] [address]Dr. Garima Pulliam CO2 [Moles/Vol] 29.8 mmol/L Normal 21.0-32.0 The [facility] Comment on above: Performed By: #### C DAVID, HSTROPN ####[facility] [address]bu[address] [place] [address]Dr. Garima Pulliam Creatinine [Mass/Vol] 0.68 mg/dL Critically low 0.70-1.30 [facility] Comment on above: Performed By: #### C MP, HSTROPN ####[facility] [address]cjh[address] [place] [address]Dr. Garima Pulliam EGFR-AF MOROCCAN >60 Normal >=60 [facility] Comment on above: Performed By: #### C MP, HSTROPN ####[facility] [address]ef[address] [place] [address]Dr. Chapislan Pulliam EGFR-NON AF MOROCCAN >60 Normal >=60 [facility] Comment on above: Performed By: #### C MP, HSTROPN ####[facility] [address]svzyxdp[address] [place] [address]Dr. Garima Pulliam Globulin (S) [Mass/Vol] 2.8 g/dL Normal [facility] Comment on above: Performed By: #### C MP, HSTROPN ####[facility] [address]ys[address]hp[address] [place] [address]Dr. Garima Pulliam Glucose [Mass/Vol] 133 mg/dL Critically high 74-106 [facility] Comment on above: Performed By: #### C MP, HSTROPN ####[facility] X[address]ouqn[address] [place] [address]Dr. Chapisrenu Pulliam Potassium [Moles/Vol] 3.6 mmol/L Normal 3.5-5.1 [facility] Comment on above: Performed By: #### C MP, HSTROPN ####[facility] Y[address]rhibxqs[address] [place] [address]Dr. Chapisrenu Pulliam Protein [Mass/Vol] 6.3 g/dL Critically low 6.4-8.2 Th [facility] Comment on above: Performed By: #### C MP, HSTROPN ####[facility] Fzgqastwqn24[address] [place], [place] [address]Dr. Chapisrenu Pulliam Sodium [Moles/Vol] 137 mmol/L Normal 136-145 [facility] Comment on above: Performed By: #### C MP, HSTROPN ####[facility] Jjcilnwnap[address] [place], [place] [address]Dr. Garima Pulliam Urea nitrogen [Mass/Vol] 15.0 mg/dL Normal 7.0-18.0 The [facility] Comment on above: Performed By: #### C DAVID HSTROPN ####[facility] [address] [place] [address]Dr. Chapisrenu Pulliam Urea nitrogen/Creatinine [Mass ratio] 22.1 mg/mg Normal [facility] Comment on above: Performed By: #### C DAVID HSTROPN ####[facility] [address] [place] [address]Dr. Garima Heraclio TROPONIN, HIGH SENSITIVITYon 09-26-2022 HSTROP 12.8 pg/mL Normal 4.0-76.1 The [facility] Comment on above: Result Comment: CUT- OFF POINTS HAVE BEEN ESTABLISHED BASED ON THE FOURTH UNIVERSAL DEFINITIONS OF MYOCARDIALINFARCTION. THE UPPER REFERENCE LIMIT (URL) OF TROPONIN, DEFINED THE 99TH PERCENTILE OFcTnI DISTRIBUTION IN A REFERENCE POPULATION, HAS BEEN CONFIRMED THE DECISION THRESHOLDFOR [place] DIAGNOSIS. Performed By: #### C DAVID HSTROPN ####[facility] [address]ix[address] [place] [address]Dr. Chapisrenu Pulliam XR CHEST 1 Von 09-26-2022 XR CHEST 1 V Normal [facility] XR CHEST 1 Von 09-16-2022 XR CHEST 1 V Normal [facility] CBC AUTO DIFFon 09-15-2022 BASO # 0.0 103/ul Normal 0.0-0.1 The [facility] Comment on above: Performed By: #### C BC ####[facility] [address] [place] [address]Dr. Garima Heraclio Basophils/100 WBC (Bld) 0.1 % Critically low 0.2-2.0 The [facility] Comment on above: Performed By: #### C BC ####[facility] [address]poxib[address] [place] [address]Dr. Garima Pulliam EO # 0.0 103/ul Normal 0.0-0.7 [facility] Comment on above: Performed By: #### C BC ####[facility] Tfxdc[address]ryb[address] [place] [address]Dr. Garima Pulliam Eosinophils/100 WBC (Bld) 0.1 % Critically low 0.9-7.0 [facility] Comment on above: Performed By: #### C BC ####[facility] [address]axmyvmpk[address] [place] [address]Dr. Garima Pulliam Erythrocyte distribution width (RBC) [Ratio] 14.1 % Normal 11.0-15.0 [facility] Comment on above: Performed By: #### C BC ####[facility] Xcikhzwmkh[address] [place], [place] [address]Dr. Garima Pulliam Hematocrit (Bld) [Volume fraction] 46.1 % Normal 42.0-54.0 [facility] Comment on above: Performed By: #### C BC ####[facility] Bzrlkxkgkx[address] [place], [place] [address]Dr. Garima Pulliam Hemoglobin (Bld) [Mass/Vol] 15.0 g/dL Normal 14.0-18.0 [facility] Comment on above: Performed By: #### C BC ####[facility] Ubabogijhb[address] [place], [place] [address]Dr. Garima Pulliam IG # 0.03 10e3/ul Normal 0.00-0.03 [facility] Comment on above: Performed By: #### C BC ####[facility] Lvgaqawpbv[address] [place], [place] [address]Dr. Garima Pulliam IG % 0.3 % Normal 0.0-0.5 [facility] Comment on above: Performed By: #### C BC ####[facility] Orqmkojlin[address] [place], [place] [address]Dr. Garima Pulliam LYMPH # 0.6 103/ul Critically low 1.2-3.8 The [facility] Comment on above: Performed By: #### C BC ####[facility] Hyrreskyvn[address] [place], [place] [address]Dr. Garima Pulliam Lymphocytes/100 WBC (Bld) 5.8 % Critically low 20.5-60.0 [facility] Comment on above: Performed By: #### C BC ####[facility] [address]elt[address] [place] [id number]. Garima Pulliam MANUAL DIFF REQ NO Normal [facility] Comment on above: Performed By: #### C BC ####[facility] [address]quin[address] [place] [id number]. Garima Pulliam MCH (RBC) [Entitic mass] 30.2 pg Normal 25.9-34.0 [facility] Comment on above: Performed By: #### C BC ####[facility] [address]svw[address]relo[address] [place] [address]Dr. Garima Pulliam MCHC (RBC) [Mass/Vol] 32.5 g/dL Normal 29.9-35.2 [facility] Comment on above: Performed By: #### C BC ####[facility] O[address]bcktmvo[address] [place] [address]Dr. Garima Pulliam MCV (RBC) [Entitic vol] 92.8 fL Normal 80.0-94.0 [facility] Comment on above: Performed By: #### C BC ####[facility] Cxhudmkgop[address] [place] [address]Dr. Garima Heraclio MONO # 0.3 103/ul Normal 0.3-0.8 [facility] Comment on above: Performed By: #### C BC ####[facility] [address]em[address]rkra[address] [place] [id number]. Garima Heraclio Monocytes/100 WBC (Bld) 3.2 % Normal 1.7-12.0 [facility] Comment on above: Performed By: #### C BC ####[facility] [address]wwr[address] [place] [id number]. Garima Pulliam NEUT # 9.8 103/ul Critically high 1.4-6.5 The [facility] Comment on above: Performed By: #### C BC ####[facility] Ejps[address]stljb[address] [place] [id number]. Garima Pulliam Neutrophils/100 WBC (Bld) 90.5 % Critically high 43.0-75.0 [facility] Comment on above: Performed By: #### C BC ####[facility] [address]nobaijwys[address] [place] [phone]. Garima Pulliam Platelet mean volume (Bld) [Entitic vol] 9.4 fL Critically low 9.5-13.5 The [facility] Comment on above: Performed By: #### C BC ####[facility] [address]xfusbuzh[address] [place] [phone]. Garima Pulliam PLT 208 103/ul Normal 150-450 [facility] Comment on above: Performed By: #### C BC ####[facility] Ktecoefmvr[address] [place] [address]Dr. Garima Pulliam RBC 4.97 106/ul Normal 4.70-6.10 [facility] Comment on above: Performed By: #### C BC ####[facility] [address]lljtsuk[address] [place] [address]Dr. Garima Pulliam WBC 10.8 103/ul Normal 4.0-11.0 [facility] Comment on above: Performed By: #### C BC ####[facility] Inyxuvnpgc[address] [place] [address]Dr. Garima Pulliam PROF 14(COMP METB)on 022 Albumin [Mass/Vol] 4.0 g/dL Normal 3.4-5.0 [facility] Comment on above: Performed By: #### C MP ####[facility] Wxusrbyyej[address] [place] [address]Dr. Garima Pulliam Albumin/Globulin [Mass ratio] 1.5 {ratio} Normal [facility] Comment on above: Performed By: #### C MP ####[facility] [address]sapinxgbg[address] [place] [address]Dr. Garima Pulliam ALP [Catalytic activity/Vol] 73 U/L Normal 46-116 [facility] Comment on above: Performed By: #### C MP ####[facility] Xdkemcexbr[address] [place] [address]Dr. Garima Pulliam ALT [Catalytic activity/Vol] 42 U/L Normal 16-63 [facility] Comment on above: Performed By: #### C MP ####[facility] Euwniqnxyx[address] [place] [address]Dr. Garima Pulliam Anion gap [Moles/Vol] 9.1 mmol/L Normal [facility] Comment on above: Performed By: #### C MP ####[facility] [address]ipuqxogiq[address] [place], [place] [address]Dr. Garima Pulliam AST [Catalytic activity/Vol] 28 U/L Normal 15-37 [facility] Comment on above: Performed By: #### C MP ####[facility] Pbyxjxzycl[address] [place], [place] [address]Dr. Garima Pulliam Bilirubin [Mass/Vol] 0.6 mg/dL Normal 0.2-1.0 [facility] Comment on above: Performed By: #### C MP ####[facility] Omrprgmaeg[address] [place], [place] [address]Dr. Garima Pulliam Calcium [Mass/Vol] 8.6 mg/dL Normal 8.5-10.1 [facility] Comment on above: Performed By: #### C MP ####[facility] Asekmnmylr8[address] [place], [place] [address]Dr. Garima Pulliam Chloride [Moles/Vol] 105 mmol/L Normal 98-107 [facility] Comment on above: Performed By: #### C MP ####[facility] Qwbobsshlq55[address] [place], [place] [address]Dr. Garima Pulliam CO2 [Moles/Vol] 28.5 mmol/L Normal 21.0-32.0 The [facility] Comment on above: Performed By: #### C MP ####[facility] Eoixtcrovu464[address] [place], [place] [address]Dr. Garima Heraclio Creatinine [Mass/Vol] 0.78 mg/dL Normal 0.70-1.30 [facility] Comment on above: Performed By: #### C MP ####[facility] Yamhbqlrqg2184[address] [place], [place] [address]Dr. Chapisrenu Heraclio EGFR-AF MOROCCAN >60 Normal >=60 The [facility] Comment on above: Performed By: #### C MP ####[facility] Owsveqoaom[address] [place], [place] [address]Dr. Garima Pulliam EGFR-NON AF MOROCCAN >60 Normal >=60 [facility] Comment on above: Performed By: #### C MP ####[facility] Mjyxptxjyi[address] [place] [address]Dr. Garima Pulliam Globulin (S) [Mass/Vol] 2.7 g/dL Normal [facility] Comment on above: Performed By: #### C MP ####[facility] Foumiyohzc[address] [place] [address]Dr. Garima Pulliam Glucose [Mass/Vol] 220 mg/dL Critically high 74-106 T [facility] Comment on above: Performed By: #### C MP ####[facility] Rwwtfhxyyk[address] [place] [address]Dr. Garima Pulliam Potassium [Moles/Vol] 3.6 mmol/L Normal 3.5-5.1 [facility] Comment on above: Performed By: #### C MP ####[facility] Srbjhltbyu[address] [place], [place] [address]Dr. Garima Pulliam Protein [Mass/Vol] 6.7 g/dL Normal 6.4-8.2 [facility] Comment on above: Performed By: #### C MP ####[facility] Immsgtrpks[address] [place], [place] [address]Dr. Garima Pulliam Sodium [Moles/Vol] 139 mmol/L Normal 136-145 [facility] Comment on above: Performed By: #### C MP ####[facility] Kzkahbeghy[address] [place], [place] [address]Dr. Garima Pulliam Urea nitrogen [Mass/Vol] 11.0 mg/dL Normal 7.0-18.0 [facility] Comment on above: Performed By: #### C MP ####[facility] Nvurjbxeiy[address] [place], [place] [address]Dr. Garima Pulliam Urea nitrogen/Creatinine [Mass ratio] 14.1 mg/mg Normal [facility] Comment on above: Performed By: #### C MP ####[facility] Umdiuvzbge[address] [place], [place] [address]Dr. Garima Pulliam CARDIAC NASH 3-6on 2 CK [Catalytic activity/Vol] 240 U/L Normal 39-308 [facility] Comment on above: Performed By: #### C MREP ####[facility] [address]tgcbwy[address] [place] [address]Dr. Garima Pulliam CK.MB [Mass/Vol] 10.38 ng/mL Critically high <=3.60 Th [facility] Comment on above: Performed By: #### C MREP ####[facility] Wjzxepuvgm[address] [place] [address]Dr. Garima Pulliam HSTROP 18.5 pg/mL Normal 4.0-76.1 [facility] Comment on above: Result Comment: CUT- OFF POINTS HAVE BEEN ESTABLISHED BASED ON THE FOURTH UNIVERSAL DEFINITIONS OF MYOCARDIALINFARCTION. THE UPPER REFERENCE LIMIT (URL) OF TROPONIN, DEFINED THE 99TH PERCENTILE OFcTnI DISTRIBUTION IN A REFERENCE POPULATION, HAS BEEN CONFIRMED THE DECISION THRESHOLDFOR [place] DIAGNOSIS. Performed By: #### C MREP ####[facility] Djxxkbdgwh[address] [place] [address]Dr. Garima Pulliam CK [Catalytic activity/Vol] 257 U/L Normal 39-308 [facility] Comment on above: Performed By: #### C MREP ####[facility] [address]kglpmbihi[address] [place], [place] [address]Dr. Garima Pulliam CK.MB [Mass/Vol] 9.89 ng/mL Critically high <=3.60 [facility] Comment on above: Performed By: #### C MREP ####[facility] Cyknlewsbd[address] [place], [place] [address]Dr. Garima Pulliam HSTROP 16.9 pg/mL Normal 4.0-76.1 [facility] Comment on above: Result Comment: CUT- OFF POINTS HAVE BEEN ESTABLISHED BASED ON THE FOURTH UNIVERSAL DEFINITIONS OF MYOCARDIALINFARCTION. THE UPPER REFERENCE LIMIT (URL) OF TROPONIN, DEFINED THE 99TH PERCENTILE OFcTnI DISTRIBUTION IN A REFERENCE POPULATION, HAS BEEN CONFIRMED THE DECISION THRESHOLDFOR [place] DIAGNOSIS. Performed By: #### C MREP ####[facility] [address]zqfyrbds[address] [place] [address]Dr. Garima Heraclio CBC AUTO DIFFon 10-22-2022 BASO # 0.0 103/ul Normal 0.0-0.1 [facility] Comment on above: Performed By: #### C BC ####[facility] Tszuygtbqm[address] [place] [id number]. Garima Pulliam Basophils/100 WBC (Bld) 0.1 % Critically low 0.2-2.0 [facility] Comment on above: Performed By: #### C BC ####[facility] [address] [place] [address]Dr. Garima Pulliam EO # 0.0 103/ul Normal 0.0-0.7 [facility] Comment on above: Performed By: #### C BC ####[facility] Owqqs[address]ug[address] [place], [place] [address]Dr. Chapisrenu Heraclio Eosinophils/100 WBC (Bld) 0.0 % Critically low 0.9-7.0 [facility] Comment on above: Performed By: #### C BC ####[facility] Y[address]yr[address] [place], [place] [address]Dr. Garima Pulliam Erythrocyte distribution width (RBC) [Ratio] 13.6 % Normal 11.0-15.0 [facility] Comment on above: Performed By: #### C BC ####[facility] [address] [place], [place] [address]Dr. Garima Pulliam Hematocrit (Bld) [Volume fraction] 48.2 % Normal 42.0-54.0 [facility] Comment on above: Performed By: #### C BC ####[facility] Fz[address] [place], [place] [address]Dr. Garima Pulliam Hemoglobin (Bld) [Mass/Vol] 16.0 g/dL Normal 14.0-18.0 [facility] Comment on above: Performed By: #### C BC ####[facility] Ldavxljkxu[address] [place], [place] [address]Dr. Chapisrenu Heraclio IG # 0.02 10e3/ul Normal 0.00-0.03 [facility] Comment on above: Performed By: #### C BC ####[facility] [address] [place] [id number]. Garima Pulliam IG % 0.3 % Normal 0.0-0.5 [facility] Comment on above: Performed By: #### C BC ####[facility] [address] [place] [address]Dr. Garima Heraclio LYMPH # 0.5 103/ul Critically low 1.2-3.8 The [facility] Comment on above: Performed By: #### C BC ####[facility] [address] [place] [address]Dr. Garima Heraclio Lymphocytes/100 WBC (Bld) 7.7 % Critically low 20.5-60.0 [facility] Comment on above: Performed By: #### C BC ####[facility] Dvjrqim[address] [place], [place] [address]Dr. Chapisrenu Pulliam MANUAL DIFF REQ NO Normal The [facility] Comment on above: Performed By: #### C BC ####[facility] Mcv[address] [place], [place] [address]Dr. Garima Heraclio MCH (RBC) [Entitic mass] 30.6 pg Normal 25.9-34.0 [facility] Comment on above: Performed By: #### C BC ####[facility] [address] [place], [place] [address]Dr. Garima Pulliam MCHC (RBC) [Mass/Vol] 33.2 g/dL Normal 29.9-35.2 [facility] Comment on above: Performed By: #### C BC ####[facility] Ebp[address]belso[address] [place], [place] [address]Dr. Garima Heraclio MCV (RBC) [Entitic vol] 92.2 fL Normal 80.0-94.0 [facility] Comment on above: Performed By: #### C BC ####[facility] Xix[address] [place], [place] [address]Dr. Garima Pulliam MONO # 0.0 103/ul Critically low 0.3-0.8 The [facility] Comment on above: Performed By: #### C BC ####[facility] [address] [place] [id number]. Garima Pulliam Monocytes/100 WBC (Bld) 0.4 % Critically low 1.7-12.0 [facility] Comment on above: Performed By: #### C BC ####[facility] [address] [place] [phone]. Garima Pulliam NEUT # 6.2 103/ul Normal 1.4-6.5 [facility] Comment on above: Performed By: #### C BC ####[facility] [address] [place] [address]Dr. Garima Pulliam Neutrophils/100 WBC (Bld) 91.5 % Critically high 43.0-75.0 [facility] Comment on above: Performed By: #### C BC ####[facility] [address] [place] [address]Dr. Garima Pulliam Platelet mean volume (Bld) [Entitic vol] 8.7 fL Critically low 9.5-13.5 [facility] Comment on above: Performed By: #### C BC ####[facility] [address] [place] [address]Dr. Garima Pulliam PLT 179 103/ul Normal 150-450 [facility] Comment on above: Performed By: #### C BC ####[facility] [address] [place] [id number]. Garima Pulliam RBC 5.23 106/ul Normal 4.70-6.10 [facility] Comment on above: Performed By: #### C BC ####[facility] [address] [place] [address]Dr. Garima Pulliam WBC 6.7 103/ul Normal 4.0-11.0 [facility] Comment on above: Performed By: #### C BC ####[facility] [address] [place] [address]Dr. Garima Pulliam PROF CHEM 8 (BAS METB)on Anion gap [Moles/Vol] 12.1 mmol/L Normal Th [facility] Comment on above: Performed By: #### B MP ####[facility] [address] [place] [phone]. Garima Pulliam Calcium [Mass/Vol] 8.7 mg/dL Normal 8.5-10.1 The [facility] Comment on above: Performed By: #### B MP ####[facility] [address] [place] [phone]. Garima Pulliam Chloride [Moles/Vol] 105 mmol/L Normal 98-107 [facility] Comment on above: Performed By: #### B MP ####[facility] [address] [place] [phone]. Garima Pulliam CO2 [Moles/Vol] 25.5 mmol/L Normal 21.0-32.0 The [facility] Comment on above: Performed By: #### B MP ####[facility] [address] [place] [address]Dr. Garima Pulliam Creatinine [Mass/Vol] 0.63 mg/dL Critically low 0.70-1.30 [facility] Comment on above: Performed By: #### B MP ####[facility] [address] [place] [address]Dr. Garima Pulliam EGFR-AF MOROCCAN >60 Normal >=60 [facility] Comment on above: Performed By: #### B MP ####[facility] [address] [place] [address]Dr. Garima Pulliam EGFR-NON AF MOROCCAN >60 Normal >=60 [facility] Comment on above: Performed By: #### B MP ####[facility] L[address]xaq[address] [place] [address]Dr. Garima Pulliam Glucose [Mass/Vol] 162 mg/dL Critically high 74-106 [facility] Comment on above: Performed By: #### B MP ####[facility] Jq[address] [place], [place] [address]Dr. Garima Pulliam Potassium [Moles/Vol] 3.6 mmol/L Normal 3.5-5.1 [facility] Comment on above: Performed By: #### B MP ####[facility] S[address]pzjc[address] [place], [place] [address]Dr. Garima Pulliam Sodium [Moles/Vol] 139 mmol/L Normal 136-145 [facility] Comment on above: Performed By: #### B DAVID ####[facility] [address] [place] [address]Dr. Garima Pulliam Urea nitrogen [Mass/Vol] 9.0 mg/dL Normal 7.0-18.0 [facility] Comment on above: Performed By: #### B DAVID ####[facility] [address] [place] [address]Dr. Garima Pulliam Urea nitrogen/Creatinine [Mass ratio] 14.3 mg/mg Normal [facility] Comment on above: Performed By: #### B DAVID ####[facility] [address] [place] [address]Dr. Chapisrenu Pulliam CARDIAC NAHS ADMITon 09-12- 022 CK [Catalytic activity/Vol] 304 U/L Normal 39-308 [facility] Comment on above: Performed By: #### B NANCY HERNANDEZ ####[facility] [address] [place] [address]Dr. Garima Pulliam CK.MB [Mass/Vol] 11.81 ng/mL Critically high <=3.60 Th [facility] Comment on above: Performed By: #### B NANCY HERNANDEZ ####[facility] [address] [place] [address]Dr. Garima Heraclio HSTROP 13.3 pg/mL Normal 4.0-76.1 [facility] Comment on above: Result Comment: CUT- OFF POINTS HAVE BEEN ESTABLISHED BASED ON THE FOURTH UNIVERSAL DEFINITIONS OF MYOCARDIALINFARCTION. THE UPPER REFERENCE LIMIT (URL) OF TROPONIN, DEFINED THE 99TH PERCENTILE OFcTnI DISTRIBUTION IN A REFERENCE POPULATION, HAS BEEN CONFIRMED THE DECISION THRESHOLDFOR [place] DIAGNOSIS. Performed By: #### B NANCY HERNANDEZ ####[facility] P[address]zf[address] [place] [address]Dr. Garima Pulliam DORIS 133 ng/mL Critically high 16-96 [facility] Comment on above: Performed By: #### B NANCY HERNANDEZ ####[facility] I[address]jtll[address] [place] [address]Dr. Garima Pulliam CBC AUTO DIFFon 09-12-2022 BASO # 0.0 103/ul Normal 0.0-0.1 [facility] Comment on above: Performed By: #### C BC ####[facility] [address] [place], [place] [id number]. Garima Heraclio Basophils/100 WBC (Bld) 0.2 % Normal 0.2-2.0 [facility] Comment on above: Performed By: #### C BC ####[facility] Ub[address]vfjees[address] [place], [place] [address]Dr. Garima Heraclio EO # 0.2 103/ul Normal 0.0-0.7 [facility] Comment on above: Performed By: #### C BC ####[facility] Kcecyvzwne[address] [place], [place] [address]Dr. Chapisrenu Pulliam Eosinophils/100 WBC (Bld) 1.3 % Normal 0.9-7.0 [facility] Comment on above: Performed By: #### C BC ####[facility] H[address]qq[address]vbjx[address] [place], [place] [address]Dr. Garima Pulliam Erythrocyte distribution width (RBC) [Ratio] 13.7 % Normal 11.0-15.0 [facility] Comment on above: Performed By: #### C BC ####[facility] Zcslybsn[address] [place], [place] [address]Dr. Garima Pulliam Hematocrit (Bld) [Volume fraction] 46.4 % Normal 42.0-54.0 [facility] Comment on above: Performed By: #### C BC ####[facility] Fmfimmiuos[address] [place], [place] [address]Dr. Garima Pulliam Hemoglobin (Bld) [Mass/Vol] 15.7 g/dL Normal 14.0-18.0 [facility] Comment on above: Performed By: #### C BC ####[facility] Ov[address]llydj[address] [place], [place] [address]Dr. Garima Pulliam IG # 0.04 10e3/ul Critically high 0.00-0.03 [facility] Comment on above: Performed By: #### C BC ####[facility] [address]sa[address] [place] [phone]. Garima Pulliam IG % 0.3 % Normal 0.0-0.5 [facility] Comment on above: Performed By: #### C BC ####[facility] [address]ioi[address] [place] [phone]. Garima Pulliam LYMPH # 1.7 103/ul Normal 1.2-3.8 [facility] Comment on above: Performed By: #### C BC ####[facility] Yfc[address]vpzob[address] [place] [phone]. Garima Pulliam Lymphocytes/100 WBC (Bld) 11.5 % Critically low 20.5-60.0 [facility] Comment on above: Performed By: #### C BC ####[facility] Ol[address]qzbwr[address] [place] [phone]. Garima Pulliam MANUAL DIFF REQ NO Normal [facility] Comment on above: Performed By: #### C BC ####[facility] [address]zbhm[address]ptpi[address] [place] [phone]. Garima Pulliam MCH (RBC) [Entitic mass] 31.0 pg Normal 25.9-34.0 [facility] Comment on above: Performed By: #### C BC ####[facility] [address]znff[address] [place] [phone]. Garima Pulliam MCHC (RBC) [Mass/Vol] 33.8 g/dL Normal 29.9-35.2 [facility] Comment on above: Performed By: #### C BC ####[facility] [address]upsohqs[address] [place] [phone]. Garima Pulliam MCV (RBC) [Entitic vol] 91.7 fL Normal 80.0-94.0 [facility] Comment on above: Performed By: #### C BC ####[facility] [address]zm[address] [place] [phone]. Garima Heraclio MONO # 0.8 103/ul Normal 0.3-0.8 [facility] Comment on above: Performed By: #### C BC ####[facility] [address]aeu[address] [place] [phone]. Garima Pulliam Monocytes/100 WBC (Bld) 5.2 % Normal 1.7-12.0 [facility] Comment on above: Performed By: #### C BC ####[facility] [address] [place] [phone]. Garima Pulliam NEUT # 11.7 103/ul Critically high 1.4-6.5 [facility] Comment on above: Performed By: #### C BC ####[facility] [address]tr[address]kep[address] [place] [phone]. Garima Pulliam Neutrophils/100 WBC (Bld) 81.5 % Critically high 43.0-75.0 [facility] Comment on above: Performed By: #### C BC ####[facility] [address]ks[address] [place] [address]Dr. Garima Pulliam Platelet mean volume (Bld) [Entitic vol] 8.6 fL Critically low 9.5-13.5 [facility] Comment on above: Performed By: #### C BC ####[facility] [address] [place] [phone]. Garima Pulliam PLT 191 103/ul Normal 150-450 [facility] Comment on above: Performed By: #### C BC ####[facility] [address] [place], [place] [address]Dr. Garima Pulliam RBC 5.06 106/ul Normal 4.70-6.10 [facility] Comment on above: Performed By: #### C BC ####[facility] [address] [place], [place] [address]Dr. Garima Pulliam WBC 14.4 103/ul Critically high 4.0-11.0 [facility] Comment on above: Performed By: #### C BC ####[facility] Anurt[address]jy[address] [place], [place] [address]Dr. Garima Pulliam [facility]24 SARS-CoV-2 (COVID-19) RNA MARIE+probe Ql (Unsp spec) Not detected Normal NOT DETECTED [facility] Comment on above: Result Comment: When [...] for this test is supported by the [place] of Health and Human Service's declaration that [...] be used). Performed By: #### C VDTBH ####[facility] Hmtllj[address]jz[address] [place], [place] [address]Dr. Garima Pulliam LACTATE/LACTIC ACIDon 2021 Lactate [Moles/Vol] 1.0 mmol/L Normal 0.4-1.9 [facility] Comment on above: Performed By: #### L ACT ####[facility] Ysftwuaseb[address] [place], [place] [address]Dr. Garima Pulliam PROF CHEM 8 (BAS METB)on Anion gap [Moles/Vol] 11.6 mmol/L Normal [facility] Comment on above: Performed By: #### B NANCY HERNANDEZ ####[facility] [address]fa[address] [place] [address]Dr. Garima Pulliam Calcium [Mass/Vol] 9.2 mg/dL Normal 8.5-10.1 [facility] Comment on above: Performed By: #### B NANCY HERNANDEZ ####[facility] [address] [place] [address]Dr. Garima Pulliam Chloride [Moles/Vol] 105 mmol/L Normal 98-107 [facility] Comment on above: Performed By: #### B MP, CMADM ####[facility] [address]zmeiiwi[address] [place] [id number]. Garima Pulliam CO2 [Moles/Vol] 25.9 mmol/L Normal 21.0-32.0 [facility] Comment on above: Performed By: #### B DAVID, CMADM ####[facility] [address] [place] [address]Dr. Garima Pulliam Creatinine [Mass/Vol] 0.72 mg/dL Normal 0.70-1.30 [facility] Comment on above: Performed By: #### B DAVID, CMADM ####[facility] [address] [place] [id number]. Garima Pulliam EGFR-AF MOROCCAN >60 Normal >=60 [facility] Comment on above: Performed By: #### B DAVID, CMADM ####[facility] [address] [place] [address]Dr. Chapisrenu Pulliam EGFR-NON AF MOROCCAN >60 Normal >=60 [facility] Comment on above: Performed By: #### B DAVID, CMAANA ROSA ####[facility] [address] [place] [address]Dr. Garima Pulliam Glucose [Mass/Vol] 111 mg/dL Critically high 74-106 [facility] Comment on above: Performed By: #### B DAVID, CMADM ####[facility] [address] [place] [address]Dr. Chapisrenu Pulliam Potassium [Moles/Vol] 3.5 mmol/L Normal 3.5-5.1 [facility] Comment on above: Performed By: #### B DAVID, CMADM ####[facility] [address] [place] [address]Dr. Chapisrenu Pulliam Sodium [Moles/Vol] 139 mmol/L Normal 136-145 [facility] Comment on above: Performed By: #### B DAVID, CMADM ####[facility] [address] [place] [address]Dr. Garima Pulliam Urea nitrogen [Mass/Vol] 7.0 mg/dL Normal 7.0-18.0 [facility] Comment on above: Performed By: #### B DAVID, CMADM ####[facility] [address] [place], [place] [address]Uj. Garima Pulliam Urea nitrogen/Creatinine [Mass ratio] 9.7 mg/mg Normal [facility] Comment on above: Performed By: #### B MP, CMADM ####[facility] [address] [place], [place] [address]Sr. Garima Pulliam XR CHEST 1 Von 09-12-2022 XR CHEST 1 V Normal [facility] Encounters Encounter Date Encounter Type [...] Facility:H1 Payers Date Payer Category Payer Unknown [id number] 1960 Medicaid [id number] 1960 Unknown [id number] 1959 Unknown [id number] 1954 Unknown [id number] 2.16.84 0.1.121448.3.579.2.593 1954 Unknown [id number] 2.16.84 0.1.413088.3.579.2.593 1954 Unknown [id number] 2.16.84 0.1.691759.3.579.2.593 1954 Unknown [id number] 2.16.84 0.1.575252.3.579.2.593 1954 Unknown [id number] 2.16.84 0.1.714835.3.579.2.593 1954 Unknown [id number] 2.16.84 0.1.338429.3.579.2.593 1954 Unknown [id number] 2.16.84 0.1.882594.3.579.2.593 1954 Unknown [id number] 2.16.84 0.1.907039.3.579.2.593 1954 Unknown [id number] 2.16.84 0.1.167188.3.579.2.593 1954 Unknown [id number] 2.16.84 0.1.309169.3.579.2.593 1954 Unknown [id number] 2.16.84 0.1.501241.3.579.2.593 1954 Unknown [id number] 2.16.84 0.1.420205.3.579.2.593 1954 Unknown [id number] 2.16.84 0.1.322225.3.579.2.593 1954 Unknown [id number] 2.16.84 0.1.029492.3.579.2.593 1954 Unknown [id number] 2.16.84 0.1.293258.3.579.2.593 1954 Unknown [id number] 2.16.84 0.1.706107.3.579.2.593 1954 Unknown [id number] 2.16.84 0.1.347676.3.579.2.593 1954 Unknown [id number] 2.16.84 0.1.588115.3.579.2.593 1954 Unknown [id number] 2.16.84 0.1.150828.3.579.2.593 1954 Unknown [id number] 2.16.84 0.1.460696.3.579.2.593 Summary Purpose Family History No Family History Records Found Advance Directives No Advanced Directives Records Found Additional Source Comments (unrecognized sect ion and content) No Status Records Found INFORMATION SOURCE (unrecogn ized section and content) DATE CREATED AUTHOR 04/08/2023 The [facility] FOR RECORDS PERTAINING TO PATIENTS WHO [...] PRIMARY CLINICAL RECORDS. [facility] [employer] [facility]. provides no warranty or guarantee of the accuracy or completeness of information in this document.
--- NOTE | 2025-02-05 15:24 | ED_ITS ---
HPI HPI - General Adult General Chief complaint: Shortness of Breath/Dyspnea Stated complaint: SOB BREATHING TREATMENT Time Seen by Provider: 02/05/25 15:02 Source: patient Mode of arrival: Wheelchair Limitations: no limitations History of Present Illness HPI narrative: 69-year-old male well-known to the emergency room presents here for a breathing treatment. He states his medications did not come in the mail yet and they were supposed to be here yesterday. Patient is well-known to us with a history of COPD. He is in no acute distress at this time. He states he was short of breath at home but he does not have breathing treatments or his medication. Patient is not hypoxic Related Data Home Medications ?Medication ?Instructions ?Recorded ?Confirmed albuterol sulfate 90 mcg/actuation 2 inh inhalation Q6H PRN shortness 03/13/24 02/01/25 aerosol inhaler of breath or wheezing Previous Rx's ?Medication ?Instructions ?Recorded metformin 500 mg tablet 500 mg PO BID #30 tabs 11/11/24 tamsulosin 0.4 mg capsule (Flomax) 0.4 mg PO DAILY 7 days #7 caps 11/11/24 ipratropium 0.5 mg-albuterol 3 mg 3 ml inhalation Q4H PRN shortness 12/10/24 (2.5 mg base)/3 mL nebulization of breath #90 mL soln albuterol sulfate 2.5 mg/3 mL 2.5 mg (3 mL) inhalation Q6H PRN 01/24/25 (0.083 %) solution for nebulization shortness of breath or wheezing #90 mL losartan 100 mg tablet 100 mg PO DAILY #30 tabs 01/27/25 Allergies Allergy/AdvReac Type Severity Reaction Status Date / Time No Known Drug Allergies Allergy Verified 02/05/25 14:56 Opioid HPI Opioid Management Most Recent Opioid Data: Last Pain Scale 3 01/27/25 19:02 01/27/25 Last ORT Total Score 0 01/29/24 06:36 01/29/24 Last ORT Risk Category Low Risk 01/29/24 06:36 01/29/24 Review of Systems ROS Narrative All Systems are negative except as noted/marked.All systems reviewed and otherwise negative this [facility] Medical History Hypokalemia ?E87.6 - Hypokalemia (ICD-10) New onset type 2 diabetes mellitus ?E11.9 - Type 2 diabetes mellitus without complications (ICD-10) Lower extremity edema ?R60.0 - Localized edema (ICD-10) Edema ?R60.9 - Edema, unspecified (ICD-10) Acute hyperglycemia ?R73.9 - Hyperglycemia, unspecified (ICD-10) Tobacco abuse ?Z72.0 - Tobacco use (ICD-10) HTN (hypertension) ?I10 - Essential (primary) hypertension (ICD-10) Community acquired pneumonia ?J18.9 - Pneumonia, unspecified organism (ICD-10) Chronic obstructive pulmonary disease ?J44.9 - Chronic obstructive pulmonary disease, unspecified (ICD-10) Acute exacerbation of chronic obstructive pulmonary disease (COPD) ?J44.1 - Chronic obstructive pulmonary disease with (acute) exacerbation (ICD-10) RLL pneumonia ?J18.9 - Pneumonia, unspecified organism (ICD-10) COPD (chronic obstructive pulmonary disease) ?J44.9 - Chronic obstructive pulmonary disease, unspecified (ICD-10) Surgical History Hx of tonsillectomy ?Z90.89 - Acquired absence of other organs (ICD-10) Family History Mother Family history of cancer Family history of hypertension Father Family history of cancer Social History Within the past year, how often did you have a drink containing alcohol: 4 or more times a week Within the past year, how many standard drinks containing alcohol did you have on a typical day: 3 or 4 Within the past year, how often did you have six or more drinks on one occasion: less than monthly Total score: 3 Score interpretation: A score of 4 or more indicates drinking is likely to affect patient's safety. Smoking status: Current every day smoker Non-prescribed substance use: cannabis (any form) Previous occupational history: retired Highest level of school completed/degree received: high school graduate Are you now , , , , never or living with a partner: In a typical week, how many times do you talk on the telephone with family, friends, or neighbors: twice per week How often do you get together with friends or relatives: once per week How often do you attend protestant or mandaeism services: never Do you belong to any clubs or organizations such as protestant groups unions, fraternal or athletic groups, or school groups: no Total score: 1 Score interpretation: A score of less than or equal to 1 indicates the most socially isolated. Little interest or pleasure in doing things: not at all Feeling down, depressed, or hopeless: not at all Feel stressed/tense/nervous/anxious/difficulty sleeping: not at all Do you think of yourself as: straight/heterosexual Gender Identity: male Exam Narrative Exam Narrative: All Systems are negative except as noted/marked.All systems reviewed and otherwise negative Nurses note and vital signs reviewed and patient is not hypoxic. General: The patient appears well and in no apparent distress. Patient is resting comfortably on cart. Skin: Warm, dry, no pallor noted. There is no rash noted. Head: Normocephalic, atraumatic Eye: Normal conjunctiva, no drainage, EOMI. PERRL Ears, Nose, Mouth, and Throat: oral mucosa is moist. Nares patent. Mouth without vesicles. Ear canals patent. Tm's without Erythema Cardiovascular: Regular Rate and Rhythm Respiratory: Patient is in no distress, no accessory muscle use, lungs are diminished, loose nonproductive cough, patient able to speak full sentences no acute distress Back: non-tender, no CVA tenderness bilaterally to percussion. Musculoskeletal: The patient has no evidence of calf tenderness, no pitting edema, symmetrical pulses noted bilaterally Neurological: A&O x4, normal speech Psychiatric: Cooperative Constitutional Vital Signs, click to edit/add: Last Vital Signs Temp 98.2 F 02/05/25 14:53 Pulse 82 02/05/25 15:26 Resp 24 H 02/05/25 14:53 BP 196/92 H 02/05/25 14:53 Pulse Ox 95 02/05/25 15:26 O2 Del Method Room Air 02/05/25 15:26 Course Vital Signs Vital signs: Vital Signs Temperature 98.2 F 02/05/25 14:53 Pulse Rate 82 02/05/25 14:53 Respiratory Rate 24 H 02/05/25 14:53 Blood Pressure 196/92 H 02/05/25 14:53 Pulse Oximetry 95 02/05/25 14:53 Oxygen Delivery Method Room Air 02/05/25 14:53 Temperature 98.2 F 02/05/25 14:53 Pulse Rate 82 02/05/25 15:26 Respiratory Rate 24 H 02/05/25 14:53 Blood Pressure 196/92 H 02/05/25 14:53 Pulse Oximetry 95 02/05/25 15:26 Oxygen Delivery Method Room Air 02/05/25 15:26 Medical Decision Making MDM Narrative Medical decision making narrative: Patient presented to the emergency room for a breathing treatment. [facility] Patient does this frequently. We have explained to him multiple times that he may need or think about going into an assisted living so he does not abuse the ER system. He is in no distress at this time given a DuoNeb breathing treatment. He will be discharged to home and follow-up with his primary care physician. Patient was also educated on smoking per respiratory therapist. Differential Diagnosis Differential Diagnosis: medication refill, copd Medical Records Medical records reviewed: Yes I reviewed the patient's medical records Lab Data Lab results reviewed: Yes I reviewed the patient's lab results Discharge Plan Discharge Chief Complaint: Shortness of Breath/Dyspnea Clinical Impression: COPD (chronic obstructive pulmonary disease) Patient Disposition: Home, Self-Care Time of Disposition Decision: 15:34 Condition: Good Prescriptions / Home Meds: No Action albuterol sulfate 90 mcg/actuation HFA aerosol inhaler 2 inh inhalation Q6H PRN (Reason: shortness of breath or wheezing) albuterol sulfate 2.5 mg /3 mL (0.083 %) solution for nebulization 2.5 mg inhalation Q6H PRN (Reason: shortness of breath or wheezing) Qty: 90 0RF tamsulosin [Flomax] 0.4 mg capsule 0.4 mg PO DAILY 7 Days Qty: 7 0RF metformin 500 mg tablet 500 mg PO BID Qty: 30 0RF ipratropium-albuterol 0.5 mg-3 mg(2.5 mg base)/3 mL solution for nebulization 3 ml inhalation Q4H PRN (Reason: shortness of breath) Qty: 90 0RF Rx Instructions: until breathing returns to target peak flow/parameters losartan 100 mg tablet 100 mg PO DAILY Qty: 30 0RF Print Language: [place] Instructions: COPD (Chronic Obstructive Pulmonary Disease) (ED) Referrals: SERG DUENAS [Primary Care Provider] - 1 week
[2025-02-05] MEDS: IPRATROPIUM/ALBUTEROL SULFATE 3 ML AMPUL.NEB IH (15:25)
[2025-02-05 15:26] VITALS: PULSE 82; O2SAT 95
[2025-02-05] MEDS: ALBUTEROL SULFATE 2.5 MG/3 ML VIAL NEB IH ×2 (15:49)
== END 2025-02-05 15:56 | disposition home or self-care (01) ==
PROVIDERS: Emergency Provider Emergency Medicine
DX: J44.9 Chronic obstructive pulmonary disease, unspecified (principal); F17.200 Nicotine dependence, unspecified, uncomplicated; R06.02 Shortness of breath
CPT/HCPCS: 94640; 99285

== ENCOUNTER 2025-02-06 16:43 | Emergency (ER) | payer MEDICARE, SELFPAY ==
[2025-02-06 17:02] VITALS: BP 190/101; PULSE 96; TEMP 37; O2SAT 92; BMI 25.1
[2025-02-06 17:04] VITALS: O2SAT 96
--- OUTSIDE RECORDS SUMMARY | 2025-02-06 17:09 | XMS_ITS | CCD ---
Author Organization [facility] CliniSyla Care Team Providers Care Sap Security Architect [...] DR NONE LISTED Primary Care Unavaila ble AMIEE ., MARIYA Admitting Unavailable AIMEE ., MARIYA Attending Unavailable GRECHNY ., PALMIRA FOX Consulting UnavailREGINALDO Ferrell Consulting Unavailable SISTER, SIMONE Consulting Unavailable AIMEE ., MARIYA Consulting Unavailable Allergies Allergy Classification Reported Allergen(s) Allergy Type Date of Onset Reaction(s) Facility (1 source) Penicillin Drug Allergy [facility] Repository Problems Active Problems Problem Classification [...] 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 Garima Pulliam Basophils/100 WBC (Bld) 0.3 % Normal 0.2-2.0 [facility] Comment on above: Performed By: #### C BC ####[facility] Qegcitsgzu9622 [place] [address]DrAdalberto Pulliam EO # 0.3 103/ul Normal 0.0-0.7 [facility] Comment on above: Performed By: #### C BC ####[facility] H[address]xkewfh[address] [place], [place] [address]Dr. Garima Pulliam Eosinophils/100 WBC (Bld) 2.8 % Normal 0.9-7.0 [facility] Comment on above: Performed By: #### C BC ####[facility] Ukeyzhkvhy44[address] [place] [address]Dr. Garima Pulliam Erythrocyte distribution width (RBC) [Ratio] 13.4 % Normal 11.0-15.0 [facility] Comment on above: Performed By: #### C BC ####[facility] Kzugpljjnb[address] [place] [address]Dr. Garima Pulliam Hematocrit (Bld) [Volume fraction] 45.7 % Normal 42.0-54.0 [facility] Comment on above: Performed By: #### C BC ####[facility] Bxyndodkxz8374 [place] [address]Dr. Garima Pulliam Hemoglobin (Bld) [Mass/Vol] 15.2 g/dL Normal 14.0-18.0 [facility] Comment on above: Performed By: #### C BC ####[facility] Vomsyzodzc0083 [place] [address]Dr. Garima Pulliam IG # 0.02 10e3/ul Normal 0.00-0.03 [facility] Comment on above: Performed By: #### C BC ####[facility] Neezpnpvxu2939 [place] [address]Dr. Garima Pulliam IG % 0.2 % Normal 0.0-0.5 [facility] Comment on above: Performed By: #### C BC ####[facility] Ztwrdcmrmc2877 [place] [address]Dr. Garima Pulliam LYMPH # 2.1 103/ul Normal 1.2-3.8 [facility] Comment on above: Performed By: #### C BC ####[facility] Skxmvyhbfd6578 [place] [address]Dr. Garima Pulliam Lymphocytes/100 WBC (Bld) 23.7 % Normal 20.5-60.0 [facility] Comment on above: Performed By: #### C BC ####[facility] Zefnouxhdm6784 [place] [address]Dr. Garima Heraclio MANUAL DIFF REQ NO Normal [facility] Comment on above: Performed By: #### C BC ####[facility] Kqfkutcnxq5001 [place] [address]Dr. Garima Pulliam MCH (RBC) [Entitic mass] 30.4 pg Normal 25.9-34.0 [facility] Comment on above: Performed By: #### C BC ####[facility] Tigjipqbsj1489 [place] [address]Dr. Garima Heraclio MCHC (RBC) [Mass/Vol] 33.3 g/dL Normal 29.9-35.2 [facility] Comment on above: Performed By: #### C BC ####[facility] Nsqgoxsysl[address] [place], [place] [address]Dr. Chapisrenu Pulliam MCV (RBC) [Entitic vol] 91.4 fL Normal 80.0-94.0 [facility] Comment on above: Performed By: #### C BC ####[facility] Wdmpwmatzq[address] [place], [place] [address]Dr. Garima Heraclio MONO # 0.7 103/ul Normal 0.3-0.8 [facility] Comment on above: Performed By: #### C BC ####[facility] Mkcifviave974[address] [place], [place] [address]Dr. Chapisrenu Pulliam Monocytes/100 WBC (Bld) 8.3 % Normal 1.7-12.0 [facility] Comment on above: Performed By: #### C BC ####[facility] Cvxrtznsgn6502 [place] [address]Dr. Chapisrenu Heraclio NEUT # 5.8 103/ul Normal 1.4-6.5 [facility] Comment on above: Performed By: #### C BC ####[facility] Tofyccbist[address] [place], [place] [address]Dr. Garima Pulliam Neutrophils/100 WBC (Bld) 64.7 % Normal 43.0-75.0 [facility] Comment on above: Performed By: #### C BC ####[facility] Sgohrhfzwo9809 [place] [address]Dr. Garima Pulliam Platelet mean volume (Bld) [Entitic vol] 8.6 fL Critically low 9.5-13.5 [facility] Comment on above: Performed By: #### C BC ####[facility] Qsddidiwwd1077 [place] [address]Dr. Garima Pulliam PLT 230 103/ul Normal 150-450 [facility] Comment on above: Performed By: #### C BC ####[facility] Qlekjeakvu6603 [place] [address]Dr. Chapisrenu Heraclio RBC 5.00 106/ul Normal 4.70-6.10 [facility] Comment on above: Performed By: #### C BC ####[facility] Ohhguflnkj1007 [place] [address]Dr. Garima Heraclio WBC 9.0 103/ul Normal 4.0-11.0 [facility] Comment on above: Performed By: #### C BC ####[facility] Jzgijdojcq1100 [place] [address]Dr. Garima Pulliam MAGNESIUMon 04-04-2023 Magnesium [Mass/Vol] 1.8 mg/dL Normal 1.8-2.4 [facility] Comment on above: Performed By: #### M G ####[facility] Wrmjgohvve0979 [place] [address]Dr. Chapisrenu Pulliam PROF 14(COMP METB)on 023 Albumin [Mass/Vol] 3.8 g/dL Normal 3.4-5.0 [facility] Comment on above: Performed By: #### C MP ####[facility] Tvmyubxqzk1786 [place] [address]Dr. Garima Pulliam Albumin/Globulin [Mass ratio] 1.2 {ratio} Normal [facility] Comment on above: Performed By: #### C MP ####[facility] Hwvsgfojeu3071 [place] [address]Dr. Garima Heraclio ALP [Catalytic activity/Vol] 84 U/L Normal 46-116 [facility] Comment on above: Performed By: #### C MP ####[facility] Vviebjelhs2703 [place] [id number]. Garima Pulliam ALT [Catalytic activity/Vol] 31 U/L Normal 16-63 [facility] Comment on above: Performed By: #### C MP ####[facility] Hgqhqpmfkk5869 [place] [address]Dr. Garima Pulliam Anion gap [Moles/Vol] 12.2 mmol/L Normal [facility] Comment on above: Performed By: #### C MP ####[facility] Xrczywqdov5775 [place] [address]Dr. Garima Pulliam AST [Catalytic activity/Vol] 23 U/L Normal 15-37 [facility] Comment on above: Performed By: #### C MP ####[facility] Mqphcibuvp[address] [place], [place] [address]Dr. Garima Pulliam Bilirubin [Mass/Vol] 0.5 mg/dL Normal 0.2-1.0 [facility] Comment on above: Performed By: #### C MP ####[facility] Uoehjwbrzy[address] [place], [place] [address]Dr. Garima Pulliam Calcium [Mass/Vol] 9.2 mg/dL Normal 8.5-10.1 [facility] Comment on above: Performed By: #### C MP ####[facility] Odwqrlbuat076[address] [place], [place] [address]Dr. Garima Pulliam Chloride [Moles/Vol] 103 mmol/L Normal 98-107 [facility] Comment on above: Performed By: #### C MP ####[facility] Mclorxjjwh0437 [place] [address]Dr. Garima Pulliam CO2 [Moles/Vol] 28.5 mmol/L Normal 21.0-32.0 [facility] Comment on above: Performed By: #### C MP ####[facility] Xqcmuijrah64[address] [place], [place] [address]Dr. Garima Pulliam Creatinine [Mass/Vol] 0.74 mg/dL Normal 0.70-1.30 [facility] Comment on above: Performed By: #### C MP ####[facility] Tuedgidsqf[address] [place] [address]Dr. Garima Pulliam EGFR-AF BAHRAINI >60 Normal >=60 The [facility] Comment on above: Performed By: #### C MP ####[facility] Rhixsywyfz3288 [place] [address]Dr. Garima Heraclio EGFR-NON AF BAHRAINI >60 Normal >=60 [facility] Comment on above: Performed By: #### C MP ####[facility] Ezuatuiosd4904 [place] [phone]. Garima Heraclio Globulin (S) [Mass/Vol] 3.1 g/dL Normal [facility] Comment on above: Performed By: #### C MP ####[facility] Cjlqqfzdnm214[address] [place], [place] [address]Dr. Garima Heraclio Glucose [Mass/Vol] 93 mg/dL Normal 74-106 [facility] Comment on above: Performed By: #### C MP ####[facility] Qsedokhxda068[address] [place], [place] [address]Dr. Garima Heraclio Potassium [Moles/Vol] 3.7 mmol/L Normal 3.5-5.1 [facility] Comment on above: Performed By: #### C MP ####[facility] Luzhvbndhz[address] [place], [place] [address]Dr. Garima Heraclio Protein [Mass/Vol] 6.9 g/dL Normal 6.4-8.2 [facility] Comment on above: Performed By: #### C MP ####[facility] Wmotaotojs[address] [place], [place] [address]Dr. Garima Heraclio Sodium [Moles/Vol] 140 mmol/L Normal 136-145 [facility] Comment on above: Performed By: #### C MP ####[facility] Fudyvsonbj[address] [place], [place] [address]Dr. Garima Pulliam Urea nitrogen [Mass/Vol] 8.0 mg/dL Normal 7.0-18.0 [facility] Comment on above: Performed By: #### C MP ####[facility] Eqjjxvpcdw570[address] [place], [place] [address]Dr. Garima Pulliam Urea nitrogen/Creatinine [Mass ratio] 10.8 mg/mg Normal [facility] Comment on above: Performed By: #### C DAVID ####[facility] Guyfgpqnkw7124 [place] [address]Dr. Garima Pulliam AMMONIAon 03-30-2023 Ammonia (P) [Moles/Vol] 11 umol/L Normal 11-32 [facility] Comment on above: Performed By: #### A MM ####[facility] Eosamjargh[address] [place], [place] [address]Dr. Garima Pulliam CARDIAC NASH ADMITon 023 CK [Catalytic activity/Vol] 232 U/L Normal 39-308 [facility] Comment on above: Performed By: #### C NANCY HERNANDEZ ####[facility] Eylfynnzpc0669 [place] [address]Dr. Chapisrneu Pulliam CK.MB [Mass/Vol] 4.83 ng/mL Critically high <=3.60 [facility] Comment on above: Performed By: #### C NANCY HERNANDEZ ####[facility] Ivjxmumqak[address] [place], [place] [address]Dr. Garima Pulliam HSTROP 10.5 pg/mL Normal 4.0-76.1 [facility] Comment on above: Result Comment: CUT- OFF POINTS HAVE BEEN ESTABLISHED BASED ON THE FOURTH UNIVERSAL DEFINITIONS OF MYOCARDIALINFARCTION. THE UPPER REFERENCE LIMIT (URL) OF TROPONIN, DEFINED THE 99TH PERCENTILE OFcTnI DISTRIBUTION IN A REFERENCE POPULATION, HAS BEEN CONFIRMED THE DECISION THRESHOLDFOR ND DIAGNOSIS. Performed By: #### C NANCY HERNANDEZ ####[facility] Gmvodwmxvz[address] [place], [place] [address]Dr. Garima Heraclio DORIS 79 ng/mL Normal 16-96 [facility] Comment on above: Performed By: #### C NANCY HERNANDEZ ####[facility] Qtyynxejgf[address] [place], [place] [address]Dr. Garima Heraclio CBC AUTO DIFFon 03-30-2023 BASO # 0.0 103/ul Normal 0.0-0.1 [facility] Comment on above: Performed By: #### C BC ####[facility] Zsogeeokpa0931 [place] [id number]. Garima Pulliam Basophils/100 WBC (Bld) 0.1 % Critically low 0.2-2.0 [facility] Comment on above: Performed By: #### C BC ####[facility] Muaorpqbik7562 [place] [phone]. Garima Pulliam EO # 0.3 103/ul Normal 0.0-0.7 [facility] Comment on above: Performed By: #### C BC ####[facility] [address]xgzwjskus[address] [place], [place] [address]Dr. Garima Pulliam Eosinophils/100 WBC (Bld) 3.3 % Normal 0.9-7.0 [facility] Comment on above: Performed By: #### C BC ####[facility] Lvulfiliqx[address] [place], [place] [address]Dr. Garima Pulliam Erythrocyte distribution width (RBC) [Ratio] 13.5 % Normal 11.0-15.0 [facility] Comment on above: Performed By: #### C BC ####[facility] Bsuqlvlrjr[address] [place], [place] [address]Dr. Garima Pulliam Hematocrit (Bld) [Volume fraction] 42.9 % Normal 42.0-54.0 [facility] Comment on above: Performed By: #### C BC ####[facility] Vnyarsngag[address] [place], [place] [address]Dr. Garima Pulliam Hemoglobin (Bld) [Mass/Vol] 13.9 g/dL Critically low 14.0-18.0 [facility] Comment on above: Performed By: #### C BC ####[facility] Hftsgexbjg7558 [place] [address]Dr. Garima Pulliam IG # 0.01 10e3/ul Normal 0.00-0.03 [facility] Comment on above: Performed By: #### C BC ####[facility] Xncnzglbxs[address] [place], [place] [address]Dr. Garima Pulliam IG % 0.1 % Normal 0.0-0.5 [facility] Comment on above: Performed By: #### C BC ####[facility] Kcleqojrhl8568 [place] [address]Dr. Garima Pulliam LYMPH # 1.7 103/ul Normal 1.2-3.8 [facility] Comment on above: Performed By: #### C BC ####[facility] Rtjycareoh9023 [place], [place] [address]Ib. Garima Pulliam Lymphocytes/100 WBC (Bld) 22.8 % Normal 20.5-60.0 [facility] Comment on above: Performed By: #### C BC ####[facility] Xpsowvygsn9011 [place] [id number]. Garima Heraclio MANUAL DIFF REQ NO Normal [facility] Comment on above: Performed By: #### C BC ####[facility] Invylpcmuh1527 [place] [phone]. Garima Heraclio MCH (RBC) [Entitic mass] 30.5 pg Normal 25.9-34.0 [facility] Comment on above: Performed By: #### C BC ####[facility] Kqvmljhzyk4215 [place] [address]Dr. Garima Pulliam MCHC (RBC) [Mass/Vol] 32.4 g/dL Normal 29.9-35.2 [facility] Comment on above: Performed By: #### C BC ####[facility] Zqcqyapifz1025 [place] [address]Dr. Garima Heraclio MCV (RBC) [Entitic vol] 94.1 fL Critically high 80.0-94.0 [facility] Comment on above: Performed By: #### C BC ####[facility] Qcfknypxuk3372 [place] [id number]. Garima Heraclio MONO # 0.7 103/ul Normal 0.3-0.8 [facility] Comment on above: Performed By: #### C BC ####[facility] Bsebyoqhbw6076 [place] [address]Dr. Garima Heraclio Monocytes/100 WBC (Bld) 8.6 % Normal 1.7-12.0 [facility] Comment on above: Performed By: #### C BC ####[facility] Zqbwaqzkrk0426 [place] [address]Dr. Garima Pulliam NEUT # 4.9 103/ul Normal 1.4-6.5 [facility] Comment on above: Performed By: #### C BC ####[facility] Mkyhlmknkv0700 [place] [address]Dr. Garima Pulliam Neutrophils/100 WBC (Bld) 65.1 % Normal 43.0-75.0 [facility] Comment on above: Performed By: #### C BC ####[facility] Faamhzjqzm4018 [place] [phone]. Garima Pulliam Platelet mean volume (Bld) [Entitic vol] 8.5 fL Critically low 9.5-13.5 [facility] Comment on above: Performed By: #### C BC ####[facility] Aqphuufnus2925 [place] [phone]. Garima Pulliam PLT 219 103/ul Normal 150-450 [facility] Comment on above: Performed By: #### C BC ####[facility] Pqzsbjffks4496 [place] [phone]. Garima Pulliam RBC 4.56 106/ul Critically low 4.70-6.10 [facility] Comment on above: Performed By: #### C BC ####[facility] Hlhiavlwab0136 [place] [phone]. Garima Pulliam WBC 7.6 103/ul Normal 4.0-11.0 [facility] Comment on above: Performed By: #### C BC ####[facility] Fqfavzqnjr4728 [place] [phone]. Garima Pulliam LACTATE/LACTIC ACIDon 2022 Lactate [Moles/Vol] 1.2 mmol/L Normal 0.4-2.0 [facility] Comment on above: Performed By: #### L ACT ####[facility] Xatqpukotz2531 [place] [phone]. Garima Pulliam MAGNESIUMon 03-30-2023 Magnesium [Mass/Vol] 1.8 mg/dL Normal 1.8-2.4 [facility] Comment on above: Performed By: #### M G ####[facility] Plwvdfdnco1236 [place] [address]Dr. Garmia Pulliam PROF 14(COMP METB)on 023 Albumin [Mass/Vol] 3.5 g/dL Normal 3.4-5.0 [facility] Comment on above: Performed By: #### C DAVID, CMAANA ROSA ####[facility] Lqhwnhcgwj9203 [place] [address]Dr. Garima Pulliam Albumin/Globulin [Mass ratio] 1.2 {ratio} Normal [facility] Comment on above: Performed By: #### C DAVID, CMAANA ROSA ####[facility] Eeblnxlkbt0626 [place] [address]Dr. Garima Pulliam ALP [Catalytic activity/Vol] 85 U/L Normal 46-116 [facility] Comment on above: Performed By: #### C DAVID, CMAANA ROSA ####[facility] Mtodvmcpey[address] [place], [place] [address]Dr. Garima Pulliam ALT [Catalytic activity/Vol] 29 U/L Normal 16-63 [facility] Comment on above: Performed By: #### C DAVID, CMAANA ROSA ####[facility] Nrfnsxobfz1329 [place] [address]Dr. Garima Pulliam Anion gap [Moles/Vol] 8.0 mmol/L Normal [facility] Comment on above: Performed By: #### C DAVID, CMAANA ROSA ####[facility] Imjeywdgtf6648 [place] [address]Dr. Garima Pulliam AST [Catalytic activity/Vol] 18 U/L Normal 15-37 [facility] Comment on above: Performed By: #### C DAVID, CMADM ####[facility] Kcujxiginu5105 [place] [address]Dr. Garima Pulliam Bilirubin [Mass/Vol] 0.4 mg/dL Normal 0.2-1.0 [facility] Comment on above: Performed By: #### C DAVID, CMADM ####[facility] Wkckdszlcp9797 [place] [address]Dr. Garima Pulliam Calcium [Mass/Vol] 8.8 mg/dL Normal 8.5-10.1 [facility] Comment on above: Performed By: #### C DAVID, NANCY ####[facility] Jyhabihjxp1112 [place] [address]Dr. Chapisrenu Pulliam Chloride [Moles/Vol] 108 mmol/L Critically high 98-107 [facility] Comment on above: Performed By: #### C DAVID, NANCY ####[facility] Yvlgmjhtsy9840 [place] [address]Dr. Garima Pulliam CO2 [Moles/Vol] 29.6 mmol/L Normal 21.0-32.0 [facility] Comment on above: Performed By: #### C NANCY HERNANDEZ ####[facility] Nrfwycsfvu[address] [place], [place] [address]Dr. Garima Pulliam Creatinine [Mass/Vol] 0.77 mg/dL Normal 0.70-1.30 [facility] Comment on above: Performed By: #### C NANCY HERNANDEZ ####[facility] Zpqkdddltu[address] [place], [place] [address]Dr. Garima Heraclio EGFR-AF BAHRAINI >60 Normal >=60 [facility] Comment on above: Performed By: #### C NANCY HERNANDEZ ####[facility] Aakcyivlvf[address] [place], [place] [address]Dr. Garima Heraclio EGFR-NON AF BAHRAINI >60 Normal >=60 [facility] Comment on above: Performed By: #### C NANCY HERNANDEZ ####[facility] Qbxeroqtdg4966 [place] [address]Dr. Garima Pulliam Globulin (S) [Mass/Vol] 2.8 g/dL Normal [facility] Comment on above: Performed By: #### C NANCY HERNANDEZ ####[facility] Vtlibeqjdw3650 [place] [address]Dr. Garima Pulliam Glucose [Mass/Vol] 207 mg/dL Critically high 74-106 [facility] Comment on above: Performed By: #### C NANCY HERNANDEZ ####[facility] Lgmkyyphni9[address] [place], [place] [address]Dr. Garima Pulliam Potassium [Moles/Vol] 4.6 mmol/L Normal 3.5-5.1 [facility] Comment on above: Performed By: #### C DAVID, NANCY ####[facility] Ukzydfqlwv8538 [place] [address]Dr. Garima Pulliam Protein [Mass/Vol] 6.3 g/dL Critically low 6.4-8.2 [facility] Comment on above: Performed By: #### C DAVID, NANCY ####[facility] Bscvlsurmg1946 [place] [address]Dr. Garima Pulliam Sodium [Moles/Vol] 141 mmol/L Normal 136-145 [facility] Comment on above: Performed By: #### C DAVID, NACNY ####[facility] Ccogksckoc3572 [place] [address]Dr. Garima Pulliam Urea nitrogen [Mass/Vol] 9.0 mg/dL Normal 7.0-18.0 [facility] Comment on above: Performed By: #### C DAVID, NANCY ####[facility] Wpgexkrzsp3128 [place] [address]Dr. Garima Pulliam Urea nitrogen/Creatinine [Mass ratio] 11.7 mg/mg Normal [facility] Comment on above: Performed By: #### C DAVID, NANCY ####[facility] Pxrywoeqio0515 [place] [address]Dr. Garima Pulliam XR CHEST 1 Von 03-30-2023 XR CHEST 1 V Normal [facility] BNPon 03-27-2023 Natriuretic peptide B (Bld) [Mass/Vol] 251.0 pg/mL Normal <=900.0 [facility] Comment on above: Performed By: #### C MP, BNP, LIPID ####[facility] Fmmuviamwo6874 [place] [address]Dr. Garima Pulliam GLYCOHEMOGLOBIN A1Con 2022 ADA RECOMMENDATION SEE BELOW Normal [facility] Comment on above: Result Comment: ADA RECOMMENDED LIMIT 4.0 - 6.0 ADA THERAPEUTIC TARGET < 7.0 ACTION SUGGESTED > 7.0 Performed By: #### A 1C ####[facility] Lcyoyxevka6298 [place] [address]Dr. Garima Pulliam Glucose [Mass/Vol] 180 mg/dL Normal [facility] Comment on above: Performed By: #### A 1C ####[facility] Cpcaosmech[address] [place], [place] [address]Dr. Chapisrenu Pulliam HbA1c (Bld) [Mass fraction] 7.9 % Critically high 4.5-6.2 [facility] Comment on above: Performed By: #### A 1C ####[facility] Iddhnapjlw[address] [place], [place] [address]Dr. Garima Pulliam HEMOGRAM AND PLATELon 2022 Hematocrit (Bld) [Volume fraction] 45.7 % Normal 42.0-54.0 [facility] Comment on above: Performed By: #### H H ####[facility] V[address]wmksafwv[address] [place], [place] [address]Dr. Garima Pulliam Hemoglobin (Bld) [Mass/Vol] 15.1 g/dL Normal 14.0-18.0 [facility] Comment on above: Performed By: #### H H ####[facility] Atdsyrnngf[address] [place], [place] [address]Dr. Garima Pulliam MCH (RBC) [Entitic mass] 30.0 pg Normal 25.9-34.0 [facility] Comment on above: Performed By: #### H H ####[facility] Koxmdlwfcl[address] [place], [place] [address]Dr. Garima Pulliam MCHC (RBC) [Mass/Vol] 33.0 g/dL Normal 29.9-35.2 [facility] Comment on above: Performed By: #### H H ####[facility] Uqakscbtzw[address] [place], [place] [address]Dr. Garima Pulliam MCV (RBC) [Entitic vol] 90.7 fL Normal 80.0-94.0 [facility] Comment on above: Performed By: #### H H ####[facility] Emxknjefwb[address] [place], [place] [address]Dr. Garima Pulliam PLT 222 103/ul Normal 150-450 [facility] Comment on above: Performed By: #### H H ####[facility] Itujqxkgid2226 [place] [id number]. Garima Pulliam RBC 5.04 106/ul Normal 4.70-6.10 [facility] Comment on above: Performed By: #### H H ####[facility] Fhfxcabgup4598 [place] [id number]. Garima Pulliam WBC 8.7 103/ul Normal 4.0-11.0 [facility] Comment on above: Performed By: #### H H ####[facility] Angncubikq1200 [place] [id number]. Garima Pulliam LIPID PROFILEon 03-27-2023 CHOL-HDL RATIO NORM SEE BELOW Normal [facility] Comment on above: Result Comment: 3.3 - 4.4 LOW RISK 4.4 - 7.1 AVERAGE RISK 7.1 - 11.0 MODERATE RISK >11.0 HIGH RISK Performed By: #### C MP, BNP, LIPID ####[facility] Selofbftdz0596 [place] [address]Dr. Garima Pulliam Cholesterol [Mass/Vol] 113 mg/dL Normal <=200 [facility] Comment on above: Performed By: #### C MP, BNP, LIPID ####[facility] Csplrynxjl0532 [place] [address]Dr. Garima Pulliam Cholesterol in HDL [Mass/Vol] 51 mg/dL Normal 40-60 [facility] Comment on above: Performed By: #### C MP, BNP, LIPID ####[facility] Xjyadahnbi5106 [place] [address]Dr. Garima Pulliam Cholesterol in LDL [Mass/Vol] 49.8 mg/dL Normal [facility] Comment on above: Performed By: #### C MP, BNP, LIPID ####[facility] Cxjjiirynq0001 [place] [address]Dr. Garima Pulliam Cholesterol.total/Cho lesterol in HDL [Mass ratio] 2.2 {ratio} Normal [facility] Comment on above: Performed By: #### C MP, BNP, LIPID ####[facility] Cqlxkffnub0421 [place] [address]Dr. Garima Pulliam HDL NORMAL > or = 60 mg/dl - LOW CARDIOVASCULAR RISK <40 mg/dl - HIGH CARDIOVASCULAR RISK Normal [facility] Comment on above: Performed By: #### C MP, BNP, LIPID ####[facility] Wmcxgbgldf4351 [place] [address]Dr. Garima Pulliam LDL CALC NORMAL SEE BELOW Normal [facility] Comment on above: Result Comment: <100 mg/dl OPTIMAL 100 - 129 mg/dl NEAR OR ABOVE OPTIMAL 130 - 159 mg/dl BORDERLINE HIGH 160 - 189 mg/dl HIGH >190 mg/dl VERY HIGH Performed By: #### C MP, BNP, LIPID ####[facility] Jlcvxikcff3105 [place] [address]Dr. Garima Pulliam Triglyceride [Mass/Vol] 61 mg/dL Normal <=150 [facility] Comment on above: Performed By: #### C MP, BNP, LIPID ####[facility] Nbqnanocug[address] [place] [address]Dr. Garima Pulliam VLDL CALC 12.2 mg/dL Normal [facility] Comment on above: Performed By: #### C MP, BNP, LIPID ####[facility] Wyhgnwhkhi40[address] [place] [address]Dr. Garima Pulliam PROF 14(COMP METB)on 023 Albumin [Mass/Vol] 3.5 g/dL Normal 3.4-5.0 [facility] Comment on above: Performed By: #### C MP, BNP, LIPID ####[facility] Egzgqoelnv18[address] [place] [address]Dr. Garima Pulliam Albumin/Globulin [Mass ratio] 1.2 {ratio} Normal [facility] Comment on above: Performed By: #### C MP, BNP, LIPID ####[facility] Jzmgqpvrhl4532 [place] [address]Dr. Garima Pulliam ALP [Catalytic activity/Vol] 82 U/L Normal 46-116 [facility] Comment on above: Performed By: #### C MP, BNP, LIPID ####[facility] Yffdalpjzn07[address] [place] [address]Dr. Garima Pulliam ALT [Catalytic activity/Vol] 33 U/L Normal 16-63 [facility] Comment on above: Performed By: #### C MP, BNP, LIPID ####[facility] Phbpjbigld0512 [place] [address]Dr. Garima Pulliam Anion gap [Moles/Vol] 9.9 mmol/L Normal [facility] Comment on above: Performed By: #### C MP, BNP, LIPID ####[facility] Afaahrixmh[address] [place] [address]Dr. Garima Pulliam AST [Catalytic activity/Vol] 24 U/L Normal 15-37 [facility] Comment on above: Performed By: #### C MP, BNP, LIPID ####[facility] Merzudabco15[address] [place] [address]Dr. Garima Pulliam Bilirubin [Mass/Vol] 0.6 mg/dL Normal 0.2-1.0 [facility] Comment on above: Performed By: #### C MP, BNP, LIPID ####[facility] Nvbjmxdrtz8640 [place] [address]Dr. Garima Pulliam Calcium [Mass/Vol] 9.2 mg/dL Normal 8.5-10.1 [facility] Comment on above: Performed By: #### C MP, BNP, LIPID ####[facility] Mbmkgvsovt4656 [place] [address]Dr. Garima Pulliam Chloride [Moles/Vol] 106 mmol/L Normal 98-107 [facility] Comment on above: Performed By: #### C MP, BNP, LIPID ####[facility] Lzzbgailtu9096 [place] [address]Dr. Garima Pulliam CO2 [Moles/Vol] 32.3 mmol/L Critically high 21.0-32.0 [facility] Comment on above: Performed By: #### C MP, BNP, LIPID ####[facility] Mprfjokvva4702 [place] [address]Dr. Garima Pulliam Creatinine [Mass/Vol] 0.70 mg/dL Normal 0.70-1.30 [facility] Comment on above: Performed By: #### C MP, BNP, LIPID ####[facility] Ehwliqxnkf30[address] [place] [id number]. Garima Pulliam EGFR-AF BAHRAINI >60 Normal >=60 [facility] Comment on above: Performed By: #### C MP, BNP, LIPID ####[facility] Fwozdgodmn9471 [place] [phone]. Garima Pulliam EGFR-NON AF BAHRAINI >60 Normal >=60 [facility] Comment on above: Performed By: #### C MP, BNP, LIPID ####[facility] Tkgkmzrhrm6430 [place] [address]Dr. Garima Pulliam Globulin (S) [Mass/Vol] 2.9 g/dL Normal [facility] Comment on above: Performed By: #### C MP, BNP, LIPID ####[facility] Xjtoluzfnq1005 [place] [address]Dr. Garima Pulliam Glucose [Mass/Vol] 111 mg/dL Critically high 74-106 [facility] Comment on above: Performed By: #### C MP, BNP, LIPID ####[facility] Cpjukzffim2245 [place] [address]Dr. Garima Pulliam Potassium [Moles/Vol] 4.2 mmol/L Normal 3.5-5.1 [facility] Comment on above: Performed By: #### C MP, BNP, LIPID ####[facility] Osrjnlbvot6459 [place] [address]Dr. Garima Pulliam Protein [Mass/Vol] 6.4 g/dL Normal 6.4-8.2 [facility] Comment on above: Performed By: #### C MP, BNP, LIPID ####[facility] Gxvtiaqtmj9083 [place] [address]Dr. Garima Pulliam Sodium [Moles/Vol] 144 mmol/L Normal 136-145 [facility] Comment on above: Performed By: #### C MP, BNP, LIPID ####[facility] Zdnitzqbxp0859 [place] [address]Dr. Garima Pulliam Urea nitrogen [Mass/Vol] 7.0 mg/dL Normal 7.0-18.0 [facility] Comment on above: Performed By: #### C MP, BNP, LIPID ####[facility] Psupvvnlhh139[address] [place], [place] [address]Dr. Garima Pulliam Urea nitrogen/Creatinine [Mass ratio] 10.0 mg/mg Normal [facility] Comment on above: Performed By: #### C MP, BNP, LIPID ####[facility] Xxxgvdimpi366[address] [place], [place] [address]Dr. Garima Pulliam BNPon 03-22-2023 Natriuretic peptide B (Bld) [Mass/Vol] 103.0 pg/mL Normal <=900.0 [facility] Comment on above: Performed By: #### B PLASTIC MAKER, BMP ####[facility] Udomwjvqcm226[address] [place], [place] [address]Dr. Garima Pulliam CBC AUTO DIFFon 03-22-2023 BASO # 0.0 103/ul Normal 0.0-0.1 [facility] Comment on above: Performed By: #### C BC ####[facility] Erwnlwosta807[address] [place], [place] [address]Dr. Garima Heraclio Basophils/100 WBC (Bld) 0.3 % Normal 0.2-2.0 [facility] Comment on above: Performed By: #### C BC ####[facility] Xpumtycysj695[address] [place], [place] [address]Dr. Garima Pulliam EO # 0.2 103/ul Normal 0.0-0.7 [facility] Comment on above: Performed By: #### C BC ####[facility] Kdeeosqasx9[address] [place], [place] [address]Dr. Garima Pulliam Eosinophils/100 WBC (Bld) 2.2 % Normal 0.9-7.0 [facility] Comment on above: Performed By: #### C BC ####[facility] Lhugyammwo[address] [place], [place] [address]Dr. Garima Pulliam Erythrocyte distribution width (RBC) [Ratio] 13.2 % Normal 11.0-15.0 [facility] Comment on above: Performed By: #### C BC ####[facility] Rgopfhpdru0082 [place] [phone]. Garima Pulliam Hematocrit (Bld) [Volume fraction] 43.4 % Normal 42.0-54.0 [facility] Comment on above: Performed By: #### C BC ####[facility] Vgmyfiusqf1669 [place] [address]Dr. Garima Heraclio Hemoglobin (Bld) [Mass/Vol] 14.3 g/dL Normal 14.0-18.0 [facility] Comment on above: Performed By: #### C BC ####[facility] Qgrhifqmwp3422 [place] [address]Dr. Garima Pulliam IG # 0.02 10e3/ul Normal 0.00-0.03 [facility] Comment on above: Performed By: #### C BC ####[facility] Khxhckzrcj2839 [place] [address]Dr. Garima Pulliam IG % 0.3 % Normal 0.0-0.5 [facility] Comment on above: Performed By: #### C BC ####[facility] Opvvzxlaim7056 [place] [address]Dr. Chapisrenu Pulliam LYMPH # 2.0 103/ul Normal 1.2-3.8 [facility] Comment on above: Performed By: #### C BC ####[facility] Ggmeybkvai6090 [place] [address]Dr. Chapisrenu Pulliam Lymphocytes/100 WBC (Bld) 24.8 % Normal 20.5-60.0 [facility] Comment on above: Performed By: #### C BC ####[facility] Yykcqicayj6893 [place] [address]Dr. Chapisrenu Pulliam MANUAL DIFF REQ NO Normal [facility] Comment on above: Performed By: #### C BC ####[facility] Hwguetoxpu6387 [place] [address]Dr. Garima Heraclio MCH (RBC) [Entitic mass] 30.0 pg Normal 25.9-34.0 [facility] Comment on above: Performed By: #### C BC ####[facility] Ewolzgjeyi[address] [place], [place] [address]Dr. Garima Pulliam MCHC (RBC) [Mass/Vol] 32.9 g/dL Normal 29.9-35.2 [facility] Comment on above: Performed By: #### C BC ####[facility] Bbdrdeuasc2746 [place] [phone]. Garima Pulliam MCV (RBC) [Entitic vol] 91.0 fL Normal 80.0-94.0 [facility] Comment on above: Performed By: #### C BC ####[facility] Foxfxmmryh7973 [place] [phone]. Garima Heraclio MONO # 0.8 103/ul Normal 0.3-0.8 [facility] Comment on above: Performed By: #### C BC ####[facility] Ynfuhvimhz8659 [place] [address]Dr. Chapisrenu Pulliam Monocytes/100 WBC (Bld) 9.7 % Normal 1.7-12.0 [facility] Comment on above: Performed By: #### C BC ####[facility] Uyawirjybx2626 [place] [address]Dr. Garima Pulliam NEUT # 4.9 103/ul Normal 1.4-6.5 [facility] Comment on above: Performed By: #### C BC ####[facility] Hwkozafwfc8425 [place] [phone]. Garima Heraclio Neutrophils/100 WBC (Bld) 62.7 % Normal 43.0-75.0 [facility] Comment on above: Performed By: #### C BC ####[facility] Klcobqwzsr2045 [place] [phone]. Garima Heraclio Platelet mean volume (Bld) [Entitic vol] 8.8 fL Critically low 9.5-13.5 [facility] Comment on above: Performed By: #### C BC ####[facility] Yabjtfgtii2077 [place] [phone]. Garima Heraclio PLT 198 103/ul Normal 150-450 [facility] Comment on above: Performed By: #### C BC ####[facility] Vdnsfnmuiz7029 [place] [phone]. Garima Heraclio RBC 4.77 106/ul Normal 4.70-6.10 [facility] Comment on above: Performed By: #### C BC ####[facility] Hgbjjkplvj9212 [place] [phone]. Garima Heraclio WBC 7.9 103/ul Normal 4.0-11.0 [facility] Comment on above: Performed By: #### C BC ####[facility] Cyarakyzwg3077 [place] [phone]. Garima Heraclio D-DIMERon 03-22-2023 D-DIMER 0.85 mg/L FEU Critically high <=0.59 The [facility] Comment on above: Performed By: #### D DIM ####[facility] Vkygkajktp1574 [place] [address]Dr. Garima Pulliam D-DIMER COMMENTS SEE BELOW Normal [facility] Comment on above: Result Comment: Incr eases [...] generalized hospitalization. Performed By: #### D DIM ####[facility] Aqhuwasotl[address] [place], [place] [address]Dr. Garima Pulliam PROF CHEM 8 (BAS METB)on Anion gap [Moles/Vol] 6.9 mmol/L Normal [facility] Comment on above: Performed By: #### B PLASTIC MAKER, BMP ####[facility] Usxaxgggqz6074 [place] [address]Dr. Garima Pulliam Calcium [Mass/Vol] 8.9 mg/dL Normal 8.5-10.1 [facility] Comment on above: Performed By: #### B PLASTIC MAKER, BMP ####[facility] Ogejqcsosx6404 [place] [address]Dr. Garima Pulliam Chloride [Moles/Vol] 101 mmol/L Normal 98-107 [facility] Comment on above: Performed By: #### B PLASTIC MAKER, BMP ####[facility] Zoyvvhpmot078[address] [place], [place] [address]Dr. Chapisrenu Heraclio CO2 [Moles/Vol] 30.7 mmol/L Normal 21.0-32.0 [facility] Comment on above: Performed By: #### B PLASTIC MAKER, BMP ####[facility] Fnsnfbvivp796[address] [place], [place] [address]Dr. Garima Pulliam Creatinine [Mass/Vol] 0.82 mg/dL Normal 0.70-1.30 [facility] Comment on above: Performed By: #### B PLASTIC MAKER, BMP ####[facility] Lhpnjznuvh94[address] [place], [place] [address]Dr. Garima Pulliam EGFR-AF BAHRAINI >60 Normal >=60 [facility] Comment on above: Performed By: #### B PLASTIC MAKER, BMP ####[facility] Gqofdgblcs913[address] [place], [place] [address]Dr. Chapisrenu Heraclio EGFR-NON AF BAHRAINI >60 Normal >=60 [facility] Comment on above: Performed By: #### B PLASTIC MAKER, BMP ####[facility] Tewwcbnajg85[address] [place], [place] [address]Dr. Garima Pulliam Glucose [Mass/Vol] 339 mg/dL Critically high 74-106 [facility] Comment on above: Performed By: #### B PLASTIC MAKER, BMP ####[facility] Nlclsujwup13[address] [place], [place] [address]Dr. Garima Pulliam Potassium [Moles/Vol] 3.6 mmol/L Normal 3.5-5.1 [facility] Comment on above: Performed By: #### B PLASTIC MAKER, BMP ####[facility] Qmomfxrsif579[address] [place], [place] [address]Dr. Garima Pulliam Sodium [Moles/Vol] 135 mmol/L Critically low 136-145 [facility] Comment on above: Performed By: #### B PLASTIC MAKER, BMP ####[facility] Tfckhgwqzm29[address] [place], [place] [address]Dr. Garima Pulliam Urea nitrogen [Mass/Vol] 11.0 mg/dL Normal 7.0-18.0 [facility] Comment on above: Performed By: #### B PLASTIC MAKER, BMP ####[facility] Zwgjpzwndx074[address] [place], [place] [address]Dr. Garima Pulliam Urea nitrogen/Creatinine [Mass ratio] 13.4 mg/mg Normal [facility] Comment on above: Performed By: #### B PLASTIC MAKER, BMP ####[facility] Rlrcegpfka159[address] [place], [place] [address]Dr. Garima Pulliam US VERONICA DOP LEG BILon 023 US VERONICA DOP LEG BENOIT Normal [facility] BNPon 03-18-2023 Natriuretic peptide B (Bld) [Mass/Vol] 226.0 pg/mL Normal <=900.0 [facility] Comment on above: Performed By: #### B PLASTIC MAKER, BMP ####[facility] Ropzsqmpun93[address] [place], [place] [address]Dr. Garima Pulliam CBC AUTO DIFFon 03-18-2023 BASO # 0.0 103/ul Normal 0.0-0.1 [facility] Comment on above: Performed By: #### C BC ####[facility] Qbnolftgle457[address] [place], [place] [address]Dr. Garima Heraclio Basophils/100 WBC (Bld) 0.2 % Normal 0.2-2.0 [facility] Comment on above: Performed By: #### C BC ####[facility] Xuwglyqkup[address] [place], [place] [address]Dr. Garima Pulliam EO # 0.3 103/ul Normal 0.0-0.7 [facility] Comment on above: Performed By: #### C BC ####[facility] Xyaxgunhed914[address] [place], [place] [address]Dr. Garima Heraclio Eosinophils/100 WBC (Bld) 2.5 % Normal 0.9-7.0 [facility] Comment on above: Performed By: #### C BC ####[facility] Pxydeawfwi870[address] [place], [place] [address]Dr. Garima Heraclio Erythrocyte distribution width (RBC) [Ratio] 13.2 % Normal 11.0-15.0 [facility] Comment on above: Performed By: #### C BC ####[facility] Hxvfidulvu6431 [place] [address]DrAdalberto Pulliam Hematocrit (Bld) [Volume fraction] 45.8 % Normal 42.0-54.0 [facility] Comment on above: Performed By: #### C BC ####[facility] Rhuzekfbxu4040 [place] [address]DrAdalberto Pulliam Hemoglobin (Bld) [Mass/Vol] 15.3 g/dL Normal 14.0-18.0 [facility] Comment on above: Performed By: #### C BC ####[facility] Nulajtacxl[address] [place], [place] [address]DrAdalberto Pulliam IG # 0.02 10e3/ul Normal 0.00-0.03 [facility] Comment on above: Performed By: #### C BC ####[facility] Jmwqdpqylc379[address] [place], [place] [address]DrAdalberto Pulliam IG % 0.2 % Normal 0.0-0.5 [facility] Comment on above: Performed By: #### C BC ####[facility] Dwxaxzrtew788[address] [place], [place] [address]DrAdalberto Pulliam LYMPH # 1.8 103/ul Normal 1.2-3.8 [facility] Comment on above: Performed By: #### C BC ####[facility] Unvjokvdyi86[address] [place], [place] [address]DrAdalberto Pulliam Lymphocytes/100 WBC (Bld) 18.3 % Critically low 20.5-60.0 [facility] Comment on above: Performed By: #### C BC ####[facility] Mxlvuebxne975[address] [place], [place] [address]DrAdalberto Pulliam MANUAL DIFF REQ NO Normal [facility] Comment on above: Performed By: #### C BC ####[facility] Kckayabwhb9853 [place] [address]DrAdalberto Pulliam MCH (RBC) [Entitic mass] 30.5 pg Normal 25.9-34.0 [facility] Comment on above: Performed By: #### C BC ####[facility] Ehnmdgihez3669 [place] [address]DrAdalberto Pulliam MCHC (RBC) [Mass/Vol] 33.4 g/dL Normal 29.9-35.2 [facility] Comment on above: Performed By: #### C BC ####[facility] Wxpxiixnfg9092 [place] [address]DrAdalberto Pulliam MCV (RBC) [Entitic vol] 91.2 fL Normal 80.0-94.0 [facility] Comment on above: Performed By: #### C BC ####[facility] Zgnifchiwf049[address] [place], [place] [address]DrAdalberto Pulliam MONO # 0.8 103/ul Normal 0.3-0.8 [facility] Comment on above: Performed By: #### C BC ####[facility] Kfukpzccgb627[address] [place], [place] [address]DrAdalberto Pulliam Monocytes/100 WBC (Bld) 7.6 % Normal 1.7-12.0 [facility] Comment on above: Performed By: #### C BC ####[facility] Fdhxozqehu582[address] [place], [place] [address]DrAdalberto Pulliam NEUT # 7.0 103/ul Critically high 1.4-6.5 [facility] Comment on above: Performed By: #### C BC ####[facility] Xacegzidai276[address] [place], [place] [address]DrAdalberto Pulliam Neutrophils/100 WBC (Bld) 71.2 % Normal 43.0-75.0 [facility] Comment on above: Performed By: #### C BC ####[facility] Gvxtsdffpe936[address] [place], [place] [address]DrAdalberto Pulliam Platelet mean volume (Bld) [Entitic vol] 8.9 fL Critically low 9.5-13.5 [facility] Comment on above: Performed By: #### C BC ####[facility] Nywhkglaym9[address] [place], [place] [address]DrAdalberto Pulliam PLT 217 103/ul Normal 150-450 [facility] Comment on above: Performed By: #### C BC ####[facility] Uprarcadnf0927 [place] [address]Dr. Garima Heraclio RBC 5.02 106/ul Normal 4.70-6.10 [facility] Comment on above: Performed By: #### C BC ####[facility] Xcpilaivhx409[address] [place], [place] [address]Dr. Garima Pulliam WBC 9.8 103/ul Normal 4.0-11.0 [facility] Comment on above: Performed By: #### C BC ####[facility] Nevqmgxroa78[address] [place], [place] [address]Dr. Garima Heraclio CRPon 03-18-2023 CRP 0.1 mg/dL Normal <=1.0 [facility] Comment on above: Performed By: #### C RP ####[facility] Sahkkzbkag3825[address] [place], [place] [address]Dr. Garima Heraclio PROF CHEM 8 (BAS METB)on Anion gap [Moles/Vol] 10.4 mmol/L Normal [facility] Comment on above: Performed By: #### B PLASTIC MAKER, BMP ####[facility] Exmucjrxzp625[address] [place], [place] [address]Dr. Garima Heraclio Calcium [Mass/Vol] 8.8 mg/dL Normal 8.5-10.1 [facility] Comment on above: Performed By: #### B PLASTIC MAKER, BMP ####[facility] Qhvskarbhy[address] [place], [place] [address]Dr. Garima Heraclio Chloride [Moles/Vol] 97 mmol/L Critically low 98-107 [facility] Comment on above: Performed By: #### B PLASTIC MAKER, BMP ####[facility] Ucwxwypehl236[address] [place], [place] [address]Dr. Garima Pulliam CO2 [Moles/Vol] 31.2 mmol/L Normal 21.0-32.0 [facility] Comment on above: Performed By: #### B PLASTIC MAKER, BMP ####[facility] Izsevmvzuh187[address] [place], [place] [address]Dr. Garima Pulliam Creatinine [Mass/Vol] 0.91 mg/dL Normal 0.70-1.30 [facility] Comment on above: Performed By: #### B PLASTIC MAKER, BMP ####[facility] Wcvrzqtopz2906 [place] [address]Dr. Garima Pulliam EGFR-AF BAHRAINI >60 Normal >=60 [facility] Comment on above: Performed By: #### B PLASTIC MAKER, BMP ####[facility] Ctsjldmupj8496 [place] [id number]. Garima Pulliam EGFR-NON AF BAHRAINI >60 Normal >=60 [facility] Comment on above: Performed By: #### B PLASTIC MAKER, BMP ####[facility] Nefehizrza6553 [place] [address]Dr. Garima Pulliam Glucose [Mass/Vol] 315 mg/dL Critically high 74-106 [facility] Comment on above: Performed By: #### B PLASTIC MAKER, BMP ####[facility] Qtzwjcdema2290 [place] [address]Dr. Garima Pulliam Potassium [Moles/Vol] 3.6 mmol/L Normal 3.5-5.1 [facility] Comment on above: Performed By: #### B PLASTIC MAKER, BMP ####[facility] Esdjquwbnt0951 [place] [address]Dr. Garima Pulliam Sodium [Moles/Vol] 135 mmol/L Critically low 136-145 Th [facility] Comment on above: Performed By: #### B PLASTIC MAKER, BMP ####[facility] Uojaklfzss0075 [place] [address]Dr. Garima Pulliam Urea nitrogen [Mass/Vol] 7.0 mg/dL Normal 7.0-18.0 [facility] Comment on above: Performed By: #### B PLASTIC MAKER, BMP ####[facility] Mywvygsued9143 [place] [address]Dr. Garima Pulliam Urea nitrogen/Creatinine [Mass ratio] 7.7 mg/mg Normal [facility] Comment on above: Performed By: #### B PLASTIC MAKER, BMP ####[facility] Iacdwoekaq7074 [place] [address]Dr. Garima Pulliam SED RATE WESTERGRENon 2022 SED RATE 8 mm/hr Normal <=20 [facility] Comment on above: Performed By: #### S EDR ####[facility] Techtihscr[address] [place], [place] [address]Dr. Garima Pulliam BNPon 03-16-2023 Natriuretic peptide B (Bld) [Mass/Vol] 241.0 pg/mL Normal <=900.0 [facility] Comment on above: Performed By: #### B PLASTIC MAKER, BMP, HSTROPN ####[facility] Utcrijygec8[address] [place], [place] [address]Dr. Garima Heraclio CBC AUTO DIFFon 03-16-2023 BASO # 0.0 103/ul Normal 0.0-0.1 [facility] Comment on above: Performed By: #### C BC ####[facility] Llwyixpivd[address] [place], [place] [address]Dr. Chapisrenu Pulliam Basophils/100 WBC (Bld) 0.2 % Normal 0.2-2.0 [facility] Comment on above: Performed By: #### C BC ####[facility] Fcrhbxucba[address] [place], [place] [address]Dr. Garima Pulliam EO # 0.2 103/ul Normal 0.0-0.7 [facility] Comment on above: Performed By: #### C BC ####[facility] Jghqwmrjpx[address] [place], [place] [address]Dr. Chapisrenu Pulliam Eosinophils/100 WBC (Bld) 2.7 % Normal 0.9-7.0 [facility] Comment on above: Performed By: #### C BC ####[facility] Qzaqhgwgva390[address] [place], [place] [address]Dr. Garima Pulliam Erythrocyte distribution width (RBC) [Ratio] 13.1 % Normal 11.0-15.0 [facility] Comment on above: Performed By: #### C BC ####[facility] Nayteeylcb117[address] [place], [place] [address]Dr. Garima Pulliam Hematocrit (Bld) [Volume fraction] 41.8 % Critically low 42.0-54.0 [facility] Comment on above: Performed By: #### C BC ####[facility] Dzcchtxcyd4867 [place] [address]Dr. Garima Pulliam Hemoglobin (Bld) [Mass/Vol] 14.0 g/dL Normal 14.0-18.0 [facility] Comment on above: Performed By: #### C BC ####[facility] Lhvpjuiihm8783 [place] [address]Dr. Garima Pulliam IG # 0.03 10e3/ul Normal 0.00-0.03 [facility] Comment on above: Performed By: #### C BC ####[facility] Cnifmejsxf7020 [place] [address]Dr. Garima Pulliam IG % 0.3 % Normal 0.0-0.5 [facility] Comment on above: Performed By: #### C BC ####[facility] Jjvcfbbian[address] [place], [place] [address]Dr. Chapisrenu Pulliam LYMPH # 2.1 103/ul Normal 1.2-3.8 [facility] Comment on above: Performed By: #### C BC ####[facility] Kztesuafdz[address] [place], [place] [address]Dr. Chapisrenu Pulliam Lymphocytes/100 WBC (Bld) 24.2 % Normal 20.5-60.0 [facility] Comment on above: Performed By: #### C BC ####[facility] Rmkhlwedcy0379 [place] [address]Dr. Garima Pulliam MANUAL DIFF REQ NO Normal [facility] Comment on above: Performed By: #### C BC ####[facility] Vckzmfcxym7387 [place] [address]Dr. Garima Pulliam MCH (RBC) [Entitic mass] 30.2 pg Normal 25.9-34.0 [facility] Comment on above: Performed By: #### C BC ####[facility] Ocvpffedmz6179 [place] [address]Dr. Garima Pulliam MCHC (RBC) [Mass/Vol] 33.5 g/dL Normal 29.9-35.2 [facility] Comment on above: Performed By: #### C BC ####[facility] Umxttieteh8716 [place] [id number]. Garima Pulliam MCV (RBC) [Entitic vol] 90.1 fL Normal 80.0-94.0 [facility] Comment on above: Performed By: #### C BC ####[facility] Vvocvwbfny0227 [place] [id number]. Garima Pulliam MONO # 0.6 103/ul Normal 0.3-0.8 [facility] Comment on above: Performed By: #### C BC ####[facility] Yewbdbytad6057 [place] [address]Dr. Garima Heraclio Monocytes/100 WBC (Bld) 7.4 % Normal 1.7-12.0 [facility] Comment on above: Performed By: #### C BC ####[facility] Wynzusrodh[address] [place], [place] [address]Dr. Garima Pulliam NEUT # 5.6 103/ul Normal 1.4-6.5 [facility] Comment on above: Performed By: #### C BC ####[facility] Drzklpisro[address] [place], [place] [address]Dr. Garima Heraclio Neutrophils/100 WBC (Bld) 65.2 % Normal 43.0-75.0 [facility] Comment on above: Performed By: #### C BC ####[facility] Gqwupinyoi8182 [place] [id number]. Garima Heraclio Platelet mean volume (Bld) [Entitic vol] 8.7 fL Critically low 9.5-13.5 [facility] Comment on above: Performed By: #### C BC ####[facility] [address] [place], [place] [id number]. Garima Heraclio PLT 195 103/ul Normal 150-450 [facility] Comment on above: Performed By: #### C BC ####[facility] Uopkgylytm[address] [place] [id number]. Garima Pulliam RBC 4.64 106/ul Critically low 4.70-6.10 [facility] Comment on above: Performed By: #### C BC ####[facility] Ctvkkdrgcm[address] [place] [address]Dr. Garima Pulliam WBC 8.6 103/ul Normal 4.0-11.0 [facility] Comment on above: Performed By: #### C BC ####[facility] Olqhefvsxi[address] [place] [address]Dr. Garima Pulliam PROF CHEM 8 (BAS METB)on Anion gap [Moles/Vol] 6.7 mmol/L Normal [facility] Comment on above: Performed By: #### B PLASTIC MAKER, BMP, HSTROPN ####[facility] Eepxeiauho[address] [place] [address]Dr. Garima Pulliam Calcium [Mass/Vol] 8.8 mg/dL Normal 8.5-10.1 [facility] Comment on above: Performed By: #### B PLASTIC MAKER, BMP, HSTROPN ####[facility] [address]frf[address] [place], [place] [address]Dr. Garima Pulliam Chloride [Moles/Vol] 106 mmol/L Normal 98-107 [facility] Comment on above: Performed By: #### B PLASTIC MAKER, BMP, HSTROPN ####[facility] C[address]cbqvoc[address] [place], [place] [address]Dr. Garima Pulliam CO2 [Moles/Vol] 31.4 mmol/L Normal 21.0-32.0 [facility] Comment on above: Performed By: #### B PLASTIC MAKER, BMP, HSTROPN ####[facility] C[address]ipwoerk[address] [place], [place] [address]Dr. Garima Pulliam Creatinine [Mass/Vol] 0.75 mg/dL Normal 0.70-1.30 [facility] Comment on above: Performed By: #### B PLASTIC MAKER, BMP, HSTROPN ####[facility] Ofccjhwcis62[address] [place] [address]Dr. Garima Pulliam EGFR-AF BAHRAINI >60 Normal >=60 [facility] Comment on above: Performed By: #### B PLASTIC MAKER, BMP, HSTROPN ####[facility] Kpkpumpmkn99[address] [place] [address]Dr. Garima Pulliam EGFR-NON AF BAHRAINI >60 Normal >=60 [facility] Comment on above: Performed By: #### B PLASTIC MAKER, BMP, HSTROPN ####[facility] Zmungkhxmo2641 [place] [address]Dr. Garima Pulliam Glucose [Mass/Vol] 161 mg/dL Critically high 74-106 [facility] Comment on above: Performed By: #### B PLASTIC MAKER, BMP, HSTROPN ####[facility] Nkwqybuhsi6870 [place] [address]Dr. Garima Pulliam Potassium [Moles/Vol] 4.1 mmol/L Normal 3.5-5.1 [facility] Comment on above: Performed By: #### B PLASTIC MAKER, BMP, HSTROPN ####[facility] Nfvaxxdnkr8298 [place] [address]Dr. Garima Pulliam Sodium [Moles/Vol] 140 mmol/L Normal 136-145 [facility] Comment on above: Performed By: #### B PLASTIC MAKER, BMP, HSTROPN ####[facility] Nkvdiaugow4993 [place] [address]Dr. Garima Pulliam Urea nitrogen [Mass/Vol] 7.0 mg/dL Normal 7.0-18.0 [facility] Comment on above: Performed By: #### B PLASTIC MAKER, BMP, HSTROPN ####[facility] Hakyoetpoy[address] [place] [address]Dr. Garima Pulliam Urea nitrogen/Creatinine [Mass ratio] 9.3 mg/mg Normal [facility] Comment on above: Performed By: #### B PLASTIC MAKER, BMP, HSTROPN ####[facility] Egospbrexy3766 [place] [address]Dr. Garima Pulliam TROPONIN, HIGH SENSITIVITYon 03-16-2023 HSTROP 9.7 pg/mL Normal 4.0-76.1 [facility] Comment on above: Result Comment: CUT- OFF POINTS HAVE BEEN ESTABLISHED BASED ON THE FOURTH UNIVERSAL DEFINITIONS OF MYOCARDIALINFARCTION. THE UPPER REFERENCE LIMIT (URL) OF TROPONIN, DEFINED THE 99TH PERCENTILE OFcTnI DISTRIBUTION IN A REFERENCE POPULATION, HAS BEEN CONFIRMED THE DECISION THRESHOLDFOR ND DIAGNOSIS. Performed By: #### B PLASTIC MAKER, BMP, HSTROPN ####[facility] Figcmuwdla1620 [place] [address]Dr. Garima Pulliam XR CHEST 1 Von 03-16-2023 XR CHEST 1 V Normal [facility] BNPon 03-06-2023 Natriuretic peptide B (Bld) [Mass/Vol] 111.0 pg/mL Normal <=900.0 [facility] Comment on above: Performed By: #### C MP, BNP, CK ####[facility] Mluuudabee0626 [place] [address]Dr. Chapisrenu Pulliam CBC AUTO DIFFon 03-06-2023 BASO # 0.0 103/ul Normal 0.0-0.1 [facility] Comment on above: Performed By: #### C BC ####[facility] Ezrbwkpsro[address] [place], [place] [address]Dr. Garima Pulliam Basophils/100 WBC (Bld) 0.2 % Normal 0.2-2.0 [facility] Comment on above: Performed By: #### C BC ####[facility] Zrbmkxfpuo[address] [place], [place] [address]Dr. Garima Pullima EO # 0.3 103/ul Normal 0.0-0.7 [facility] Comment on above: Performed By: #### C BC ####[facility] C[address]ytonpuc[address] [place], [place] [address]Dr. Garima Pulliam Eosinophils/100 WBC (Bld) 3.5 % Normal 0.9-7.0 [facility] Comment on above: Performed By: #### C BC ####[facility] Chphybcfxn[address] [place], [place] [address]Dr. Garima Pulliam Erythrocyte distribution width (RBC) [Ratio] 13.3 % Normal 11.0-15.0 [facility] Comment on above: Performed By: #### C BC ####[facility] Iddohrnnne005[address] [place], [place] [address]Dr. Garima Pulliam Hematocrit (Bld) [Volume fraction] 43.7 % Normal 42.0-54.0 [facility] Comment on above: Performed By: #### C BC ####[facility] Xapkosexct8047 [place] [address]Dr. Garima Pulliam Hemoglobin (Bld) [Mass/Vol] 14.7 g/dL Normal 14.0-18.0 [facility] Comment on above: Performed By: #### C BC ####[facility] Lrspfdfgbf8297 [place] [address]Dr. Chapisrenu Heraclio IG # 0.03 10e3/ul Normal 0.00-0.03 [facility] Comment on above: Performed By: #### C BC ####[facility] Puehtbyhay[address] [place], [place] [address]Dr. Garima Pulliam IG % 0.4 % Normal 0.0-0.5 [facility] Comment on above: Performed By: #### C BC ####[facility] Vaxyjttmdp[address] [place], [place] [address]Dr. Garima Pulliam LYMPH # 2.0 103/ul Normal 1.2-3.8 [facility] Comment on above: Performed By: #### C BC ####[facility] Qepplxzwix[address] [place], [place] [address]DrAdalberto Pulliam Lymphocytes/100 WBC (Bld) 23.7 % Normal 20.5-60.0 [facility] Comment on above: Performed By: #### C BC ####[facility] Hnobkvlhcp6425 [place] [address]Dr. Garima Pulliam MANUAL DIFF REQ NO Normal [facility] Comment on above: Performed By: #### C BC ####[facility] Mfyukpxnap3486 [place] [id number] Pulliam MCH (RBC) [Entitic mass] 30.1 pg Normal 25.9-34.0 [facility] Comment on above: Performed By: #### C BC ####[facility] Avbvuxovgt1900 [place] [id number]. Garima Pulliam MCHC (RBC) [Mass/Vol] 33.6 g/dL Normal 29.9-35.2 [facility] Comment on above: Performed By: #### C BC ####[facility] Orjeuyenmj9927 [place] [address]Dr. Garima Heraclio MCV (RBC) [Entitic vol] 89.4 fL Normal 80.0-94.0 [facility] Comment on above: Performed By: #### C BC ####[facility] Zpcmbvnyea6892 [place] [address]Dr. Garima Pulliam MONO # 0.8 103/ul Normal 0.3-0.8 [facility] Comment on above: Performed By: #### C BC ####[facility] Hjbcugxrhx9154 [place] [address]Dr. Garima Pulliam Monocytes/100 WBC (Bld) 9.0 % Normal 1.7-12.0 [facility] Comment on above: Performed By: #### C BC ####[facility] Npdhwdisgt[address] [place], [place] [address]Dr. Garima Pulliam NEUT # 5.4 103/ul Normal 1.4-6.5 [facility] Comment on above: Performed By: #### C BC ####[facility] Cutctdxfbi264[address] [place], [place] [address]Dr. Garima Pulliam Neutrophils/100 WBC (Bld) 63.2 % Normal 43.0-75.0 [facility] Comment on above: Performed By: #### C BC ####[facility] Dhqzozbedq[address] [place], [place] [address]Dr. Garima Pulliam Platelet mean volume (Bld) [Entitic vol] 9.0 fL Critically low 9.5-13.5 [facility] Comment on above: Performed By: #### C BC ####[facility] Ecztleuaxy[address] [place], [place] [address]Dr. Garima Pulliam PLT 218 103/ul Normal 150-450 [facility] Comment on above: Performed By: #### C BC ####[facility] Zuczlzlgdy1470 [place] [id number]. Garima Pulliam RBC 4.89 106/ul Normal 4.70-6.10 [facility] Comment on above: Performed By: #### C BC ####[facility] Aiovylrtig8367 [place] [address]Dr. Garima Pulliam WBC 8.5 103/ul Normal 4.0-11.0 [facility] Comment on above: Performed By: #### C BC ####[facility] Eadjdunvbi5405 [place] [address]Dr. Garima Pulliam CPKon 03-06-2023 CK [Catalytic activity/Vol] 191 U/L Normal 39-308 [facility] Comment on above: Performed By: #### C MP, BNP, CK ####[facility] Hxwtawpaac5837 [place] [address]Dr. Garima Pulliam PROF 14(COMP METB)on 023 Albumin [Mass/Vol] 3.6 g/dL Normal 3.4-5.0 [facility] Comment on above: Performed By: #### C MP, BNP, CK ####[facility] Hbkhqtudqi9954 [place] [address]Dr. Garima Pulliam Albumin/Globulin [Mass ratio] 1.2 {ratio} Normal [facility] Comment on above: Performed By: #### C MP, BNP, CK ####[facility] Ghfurcicsf5333 [place] [address]Dr. Garima Pulliam ALP [Catalytic activity/Vol] 91 U/L Normal 46-116 [facility] Comment on above: Performed By: #### C MP, BNP, CK ####[facility] Atcpfgiowm9983 [place] [address]Dr. Garima Pulliam ALT [Catalytic activity/Vol] 33 U/L Normal 16-63 [facility] Comment on above: Performed By: #### C MP, BNP, CK ####[facility] Gfwqrqtpqw6376 [place] [address]Dr. Garima Pulliam Anion gap [Moles/Vol] 10.3 mmol/L Normal [facility] Comment on above: Performed By: #### C MP, BNP, CK ####[facility] Pbqculgkku7824 [place] [address]Dr. Garima Pulliam AST [Catalytic activity/Vol] 17 U/L Normal 15-37 [facility] Comment on above: Performed By: #### C MP, BNP, CK ####[facility] Ptcqjjydia3628 [place] [address]Dr. Garima Pulliam Bilirubin [Mass/Vol] 0.4 mg/dL Normal 0.2-1.0 [facility] Comment on above: Performed By: #### C MP, BNP, CK ####[facility] Zlrrbmlkxp9979 [place] [address]Dr. Garima Pulliam Calcium [Mass/Vol] 9.1 mg/dL Normal 8.5-10.1 [facility] Comment on above: Performed By: #### C MP, BNP, CK ####[facility] Bmacsbippv8920 [place] [address]Dr. Garima Pulliam Chloride [Moles/Vol] 102 mmol/L Normal 98-107 [facility] Comment on above: Performed By: #### C MP, BNP, CK ####[facility] Mcbheexbux5129 [place] [address]Dr. Garima Pulliam CO2 [Moles/Vol] 29.7 mmol/L Normal 21.0-32.0 [facility] Comment on above: Performed By: #### C MP, BNP, CK ####[facility] Sazdckiqhe1032 [place] [address]Dr. Garima Pulliam Creatinine [Mass/Vol] 0.79 mg/dL Normal 0.70-1.30 [facility] Comment on above: Performed By: #### C MP, BNP, CK ####[facility] Rzmyfvxxta5050 [place] [address]Dr. Garima Pulliam EGFR-AF BAHRAINI >60 Normal >=60 [facility] Comment on above: Performed By: #### C MP, BNP, CK ####[facility] Pxvgpsvwyx7976 [place] [address]Dr. Garima Pulliam EGFR-NON AF BAHRAINI >60 Normal >=60 [facility] Comment on above: Performed By: #### C MP, BNP, CK ####[facility] Qjmxqlauqb7611 [place] [address]Dr. Garima Pulliam Globulin (S) [Mass/Vol] 3.0 g/dL Normal [facility] Comment on above: Performed By: #### C MP, BNP, CK ####[facility] Qtetgyuxfj2647 [place] [address]Dr. Garima Pulliam Glucose [Mass/Vol] 202 mg/dL Critically high 74-106 [facility] Comment on above: Performed By: #### C MP, BNP, CK ####[facility] Ksireqlsts8947 [place] [address]Dr. Garima Pulliam Potassium [Moles/Vol] 4.0 mmol/L Normal 3.5-5.1 [facility] Comment on above: Performed By: #### C MP, BNP, CK ####[facility] Rywnaxrxna4438 [place] [address]Dr. Garima Pulliam Protein [Mass/Vol] 6.6 g/dL Normal 6.4-8.2 [facility] Comment on above: Performed By: #### C MP, BNP, CK ####[facility] Aqgyljdlxp[address] [place], [place] [address]Dr. Garima Pulliam Sodium [Moles/Vol] 138 mmol/L Normal 136-145 [facility] Comment on above: Performed By: #### C MP, BNP, CK ####[facility] Vnplcyrzyz309[address] [place], [place] [address]Dr. Garima Pulliam Urea nitrogen [Mass/Vol] 10.0 mg/dL Normal 7.0-18.0 [facility] Comment on above: Performed By: #### C MP, BNP, CK ####[facility] Idwywfgadd3583 [place] [address]Dr. Garima Pulliam Urea nitrogen/Creatinine [Mass ratio] 12.7 mg/mg Normal [facility] Comment on above: Performed By: #### C MP, BNP, CK ####[facility] Odaporyimk2478 [place] [address]Dr. Garima Pulliam US VERONICA DOP LEG BILon 023 US VERONICA DOP LEG BENOIT Normal The [facility] CBC AUTO DIFFon 01-13-2023 BASO # 0.0 103/ul Normal 0.0-0.1 [facility] Comment on above: Performed By: #### C BC ####[facility] Yyjvclgrwp7652 [place] [id number]. Chapisrenu Pulliam Basophils/100 WBC (Bld) 0.0 % Critically low 0.2-2.0 [facility] Comment on above: Performed By: #### C BC ####[facility] Ugceyqdrvu6224 [place] [address]Dr. Garima Pulliam EO # 0.0 103/ul Normal 0.0-0.7 [facility] Comment on above: Performed By: #### C BC ####[facility] Srphwiirzs[address] [place], [place] [address]Dr. Garima Pulliam Eosinophils/100 WBC (Bld) 0.0 % Critically low 0.9-7.0 [facility] Comment on above: Performed By: #### C BC ####[facility] Qzsjsxjlyr9638 [place] [address]Dr. Garima Pulliam Erythrocyte distribution width (RBC) [Ratio] 13.2 % Normal 11.0-15.0 [facility] Comment on above: Performed By: #### C BC ####[facility] Oinonytfpz430[address] [place], [place] [address]Dr. Garima Pulliam Hematocrit (Bld) [Volume fraction] 46.7 % Normal 42.0-54.0 [facility] Comment on above: Performed By: #### C BC ####[facility] Eazppgdgcb[address] [place], [place] [address]Dr. Garima Pulliam Hemoglobin (Bld) [Mass/Vol] 15.6 g/dL Normal 14.0-18.0 [facility] Comment on above: Performed By: #### C BC ####[facility] Xfllbojafm059[address] [place], [place] [address]Dr. Garima Pulliam IG # 0.01 10e3/ul Normal 0.00-0.03 [facility] Comment on above: Performed By: #### C BC ####[facility] Jguwvzgeof6238 [place] [id number]. Garima Pulliam IG % 0.2 % Normal 0.0-0.5 [facility] Comment on above: Performed By: #### C BC ####[facility] Mswldywclj6523 [place] [address]Dr. Garima Pulliam LYMPH # 0.8 103/ul Critically low 1.2-3.8 [facility] Comment on above: Performed By: #### C BC ####[facility] Puecnkpdhz9528 [place] [phone]. Garima Pulliam Lymphocytes/100 WBC (Bld) 12.7 % Critically low 20.5-60.0 [facility] Comment on above: Performed By: #### C BC ####[facility] Peawtjiglg0002 [place] [address]Dr. Garima Pulliam MANUAL DIFF REQ NO Normal [facility] Comment on above: Performed By: #### C BC ####[facility] Rweeenhvai0249 [place] [id number]. Garima Pulliam MCH (RBC) [Entitic mass] 30.2 pg Normal 25.9-34.0 [facility] Comment on above: Performed By: #### C BC ####[facility] Vnihekcyou8494 [place] [address]Dr. Garima Pulliam MCHC (RBC) [Mass/Vol] 33.4 g/dL Normal 29.9-35.2 [facility] Comment on above: Performed By: #### C BC ####[facility] Arvbaxzlzt1068 [place] [id number]. Garima Pulliam MCV (RBC) [Entitic vol] 90.3 fL Normal 80.0-94.0 [facility] Comment on above: Performed By: #### C BC ####[facility] Yxlhtwprfy0732 [place] [id number]. Garima Heraclio MONO # 0.1 103/ul Critically low 0.3-0.8 [facility] Comment on above: Performed By: #### C BC ####[facility] Kgvioxbvpu1017 [place] [address]Dr. Garima Pulliam Monocytes/100 WBC (Bld) 0.9 % Critically low 1.7-12.0 [facility] Comment on above: Performed By: #### C BC ####[facility] Hrjwmgimho0774 [place] [id number]. Garima Pulliam NEUT # 5.6 103/ul Normal 1.4-6.5 [facility] Comment on above: Performed By: #### C BC ####[facility] Oznlkmdkaj6326 [place] [id number]. Garima Pulliam Neutrophils/100 WBC (Bld) 86.2 % Critically high 43.0-75.0 [facility] Comment on above: Performed By: #### C BC ####[facility] Rsmvpmnvvo2477 [place] [address]Dr. Garima Pulliam Platelet mean volume (Bld) [Entitic vol] 9.1 fL Critically low 9.5-13.5 [facility] Comment on above: Performed By: #### C BC ####[facility] Lkysnumvss[address] [place], [place] [address]Dr. Garima Pulliam PLT 169 103/ul Normal 150-450 [facility] Comment on above: Performed By: #### C BC ####[facility] Jegfrgkytu119[address] [place], [place] [address]Dr. Garima Pulliam RBC 5.17 106/ul Normal 4.70-6.10 [facility] Comment on above: Performed By: #### C BC ####[facility] [address]xwqwhjag[address] [place], [place] [address]Dr. Garima Pulliam WBC 6.5 103/ul Normal 4.0-11.0 [facility] Comment on above: Performed By: #### C BC ####[facility] Xmzhykrfin[address] [place], [place] [address]Dr. Garima Pulliam D-DIMERon 01-13-2023 D-DIMER 0.41 mg/L FEU Normal <=0.59 [facility] Comment on above: Performed By: #### D DIM ####[facility] Iudibgtuwk4297 [place] [address]Dr. Garima Pulliam D-DIMER COMMENTS SEE BELOW Normal [facility] Comment on above: Result Comment: Incr [...] generalized hospitalization. Performed By: #### D DIM ####[facility] Btkzpgprya[address] [place], [place] [address]Dr. Garima Pulliam PROF 14(COMP METB)on 023 Albumin [Mass/Vol] 3.4 g/dL Normal 3.4-5.0 [facility] Comment on above: Performed By: #### C MP ####[facility] Ckgomequyr475[address] [place], [place] [address]Dr. Garima Pulliam Albumin/Globulin [Mass ratio] 1.3 {ratio} Normal [facility] Comment on above: Performed By: #### C MP ####[facility] Sdnqutrous557[address] [place], [place] [address]Dr. Garima Pulliam ALP [Catalytic activity/Vol] 83 U/L Normal 46-116 [facility] Comment on above: Performed By: #### C MP ####[facility] Cwvqhtrxkv609[address] [place], [place] [address]Dr. Garima Pulliam ALT [Catalytic activity/Vol] 25 U/L Normal 16-63 [facility] Comment on above: Performed By: #### C MP ####[facility] Baibsegall6141 [place] [address]Dr. Garima Pulliam Anion gap [Moles/Vol] 14.5 mmol/L Normal [facility] Comment on above: Performed By: #### C MP ####[facility] Ncczahllcv919[address] [place], [place] [address]Dr. Garima Pulliam AST [Catalytic activity/Vol] 19 U/L Normal 15-37 [facility] Comment on above: Performed By: #### C MP ####[facility] Bgiqkspprl8[address] [place], [place] [address]Dr. Garima Pulliam Bilirubin [Mass/Vol] 0.4 mg/dL Normal 0.2-1.0 [facility] Comment on above: Performed By: #### C MP ####[facility] Owruidwdai185[address] [place], [place] [address]Dr. Garima Pulliam Calcium [Mass/Vol] 8.7 mg/dL Normal 8.5-10.1 [facility] Comment on above: Performed By: #### C MP ####[facility] Hvwyjojiwi585[address] [place], [place] [address]Dr. Garima Pulliam Chloride [Moles/Vol] 104 mmol/L Normal 98-107 [facility] Comment on above: Performed By: #### C MP ####[facility] Pxfpqarqoo35[address] [place], [place] [address]Dr. Garima Pulliam CO2 [Moles/Vol] 24.5 mmol/L Normal 21.0-32.0 [facility] Comment on above: Performed By: #### C MP ####[facility] Suscwmqdsz72[address] [place], [place] [address]Dr. Garima Pulliam Creatinine [Mass/Vol] 0.70 mg/dL Normal 0.70-1.30 [facility] Comment on above: Performed By: #### C MP ####[facility] Tvlhbrnuba[address] [place], [place] [address]Dr. Garima Heraclio EGFR-AF BAHRAINI >60 Normal >=60 [facility] Comment on above: Performed By: #### C MP ####[facility] Hhtfegyooo146[address] [place], [place] [address]Dr. Chapisrenu Heraclio EGFR-NON AF BAHRAINI >60 Normal >=60 [facility] Comment on above: Performed By: #### C MP ####[facility] Fjstgizhgr[address] [place], [place] [address]Dr. Chapisrenu Pulliam Globulin (S) [Mass/Vol] 2.6 g/dL Normal [facility] Comment on above: Performed By: #### C MP ####[facility] Uqpdftirpt1095 [place] [address]Dr. Garima Pulliam Glucose [Mass/Vol] 196 mg/dL Critically high 74-106 [facility] Comment on above: Performed By: #### C MP ####[facility] Seswbaouaf0704 [place] [address]Dr. Garima Pulliam Potassium [Moles/Vol] 4.0 mmol/L Normal 3.5-5.1 [facility] Comment on above: Performed By: #### C MP ####[facility] Uwwwjjgrmx8109 [place] [address]Dr. Garima Pulliam Protein [Mass/Vol] 6.0 g/dL Critically low 6.4-8.2 [facility] Comment on above: Performed By: #### C MP ####[facility] Ptlzgpefbv[address] [place], [place] [address]Dr. Garima Pulliam Sodium [Moles/Vol] 139 mmol/L Normal 136-145 [facility] Comment on above: Performed By: #### C MP ####[facility] Acfdscwikx056[address] [place], [place] [address]Dr. Garima Pulliam Urea nitrogen [Mass/Vol] 7.0 mg/dL Normal 7.0-18.0 [facility] Comment on above: Performed By: #### C MP ####[facility] Ympudljjln[address] [place], [place] [address]Dr. Garima Heraclio Urea nitrogen/Creatinine [Mass ratio] 10.0 mg/mg Normal [facility] Comment on above: Performed By: #### C MP ####[facility] Oysuktvsui57[address] [place], [place] [address]Dr. Garima Heraclio BNPon 01-12-2023 Natriuretic peptide B (Bld) [Mass/Vol] 141.0 pg/mL Normal <=900.0 [facility] Comment on above: Performed By: #### C MP, BNP, HSTROPN ####[facility] Bncslldhbj[address] [place], [place] [address]Dr. Garima Heraclio CBC AUTO DIFFon 01-12-2023 BASO # 0.0 103/ul Normal 0.0-0.1 [facility] Comment on above: Performed By: #### C BC ####[facility] Olkyhfawko4859 [place] [id number]. Garima Heraclio Basophils/100 WBC (Bld) 0.2 % Normal 0.2-2.0 [facility] Comment on above: Performed By: #### C BC ####[facility] Vukrakptor8161 [place] [address]Dr. Garima Heraclio EO # 0.2 103/ul Normal 0.0-0.7 [facility] Comment on above: Performed By: #### C BC ####[facility] Yxiticcgaa7025 [place] [address]Dr. Garima Heraclio Eosinophils/100 WBC (Bld) 2.7 % Normal 0.9-7.0 [facility] Comment on above: Performed By: #### C BC ####[facility] Bhrbmhwskp[address] [place], [place] [address]Dr. Garima Pulliam Erythrocyte distribution width (RBC) [Ratio] 13.3 % Normal 11.0-15.0 [facility] Comment on above: Performed By: #### C BC ####[facility] Umziagcrwq450[address] [place], [place] [address]Dr. Garima Pulliam Hematocrit (Bld) [Volume fraction] 42.3 % Normal 42.0-54.0 [facility] Comment on above: Performed By: #### C BC ####[facility] Nemrzpsiiw328[address] [place], [place] [address]Dr. Garima Pulliam Hemoglobin (Bld) [Mass/Vol] 14.3 g/dL Normal 14.0-18.0 [facility] Comment on above: Performed By: #### C BC ####[facility] Ygjirlynua646[address] [place], [place] [address]Dr. Garima Pulliam IG # 0.02 10e3/ul Normal 0.00-0.03 [facility] Comment on above: Performed By: #### C BC ####[facility] Tprqieayof8249 [place] [id number]. Garima Pulliam IG % 0.2 % Normal 0.0-0.5 [facility] Comment on above: Performed By: #### C BC ####[facility] Ecxysaqpfb9835 [place] [id number]. Garima Pulliam LYMPH # 2.6 103/ul Normal 1.2-3.8 [facility] Comment on above: Performed By: #### C BC ####[facility] [address]xluibx[address] [place] [id number]. Garima Heraclio Lymphocytes/100 WBC (Bld) 29.6 % Normal 20.5-60.0 [facility] Comment on above: Performed By: #### C BC ####[facility] Zsz[address]yqxlz[address] [place] [address]Dr. Garima Heraclio MANUAL DIFF REQ NO Normal [facility] Comment on above: Performed By: #### C BC ####[facility] Lurlcuuipv9[address] [place] [id number]. Garima Pulliam MCH (RBC) [Entitic mass] 30.2 pg Normal 25.9-34.0 [facility] Comment on above: Performed By: #### C BC ####[facility] Xsuiekwjwe[address] [place] [address]Dr. Garima Pulliam MCHC (RBC) [Mass/Vol] 33.8 g/dL Normal 29.9-35.2 [facility] Comment on above: Performed By: #### C BC ####[facility] Aunkugcdia3954 [place] [id number]. Garima Pulliam MCV (RBC) [Entitic vol] 89.2 fL Normal 80.0-94.0 [facility] Comment on above: Performed By: #### C BC ####[facility] Lkwrcwszsc[address] [place], [place] [address]Dr. Chapisrenu Pulliam MONO # 0.7 103/ul Normal 0.3-0.8 [facility] Comment on above: Performed By: #### C BC ####[facility] Ljvapgovcl1403 [place] [id number]. Garima Pulliam Monocytes/100 WBC (Bld) 8.3 % Normal 1.7-12.0 [facility] Comment on above: Performed By: #### C BC ####[facility] Wvtcliaahh6536 [place] [id number]. Garima Pulliam NEUT # 5.1 103/ul Normal 1.4-6.5 [facility] Comment on above: Performed By: #### C BC ####[facility] Dtjqqzcwav5896 [place] [id number]. Garima Pulliam Neutrophils/100 WBC (Bld) 59.0 % Normal 43.0-75.0 [facility] Comment on above: Performed By: #### C BC ####[facility] Bwjmvlvfsv07[address] [place] [address]Dr. Garima Pulliam Platelet mean volume (Bld) [Entitic vol] 8.7 fL Critically low 9.5-13.5 [facility] Comment on above: Performed By: #### C BC ####[facility] Aktujdokiv44[address] [place] [address]Dr. Garima Pulliam PLT 182 103/ul Normal 150-450 [facility] Comment on above: Performed By: #### C BC ####[facility] Ryllksbaan2[address] [place] [id number]. Garima Pulliam RBC 4.74 106/ul Normal 4.70-6.10 [facility] Comment on above: Performed By: #### C BC ####[facility] X[address] [place], [place] [address]Dr. Garima Pulliam WBC 8.7 103/ul Normal 4.0-11.0 [facility] Comment on above: Performed By: #### C BC ####[facility] Yorrvmrmqg[address] [place], [place] [address]Dr. Garima Pulliam Covid-19 PCR (CVDTB)on 12-25 SARS-CoV-2 (COVID-19) RNA MARIE+probe Ql (Unsp spec) Not detected Normal NOT DETECTED [facility] Comment on above: Result Comment: When [...] for this test is supported by the Sheet Metal Apprentice of Health and Human Service's declaration that [...] be used). Performed By: #### C VDTBH ####[facility] Hhjxjwjkwu5[address] [place] [address]Dr. Garima Pulliam PROF 14(COMP METB)on 023 Albumin [Mass/Vol] 3.6 g/dL Normal 3.4-5.0 [facility] Comment on above: Performed By: #### C MP, BNP, HSTROPN ####[facility] Bwesessxbi4[address] [place] [address]Dr. Garima Pulliam Albumin/Globulin [Mass ratio] 1.5 {ratio} Normal [facility] Comment on above: Performed By: #### C MP, BNP, HSTROPN ####[facility] Kpkfawpyry7[address] [place] [address]Dr. Garima Pulliam ALP [Catalytic activity/Vol] 79 U/L Normal 46-116 [facility] Comment on above: Performed By: #### C MP, BNP, HSTROPN ####[facility] Gseflvymag07[address] [place] [address]Dr. Garima Pluliam ALT [Catalytic activity/Vol] 27 U/L Normal 16-63 [facility] Comment on above: Performed By: #### C MP, BNP, HSTROPN ####[facility] Jzslwebkqi0168 [place] [address]Dr. Garima Pulliam Anion gap [Moles/Vol] 11.7 mmol/L Normal Th [facility] Comment on above: Performed By: #### C MP, BNP, HSTROPN ####[facility] Oahbeahhvv2084 [place] [address]Dr. Garima Pulliam AST [Catalytic activity/Vol] 21 U/L Normal 15-37 [facility] Comment on above: Performed By: #### C MP, BNP, HSTROPN ####[facility] Hocwlgvnyg4356 [place] [address]Dr. Garima Pulliam Bilirubin [Mass/Vol] 0.3 mg/dL Normal 0.2-1.0 [facility] Comment on above: Performed By: #### C MP, BNP, HSTROPN ####[facility] Flsnpiypny1072 [place] [address]Dr. Garima Pulliam Calcium [Mass/Vol] 8.9 mg/dL Normal 8.5-10.1 [facility] Comment on above: Performed By: #### C MP, BNP, HSTROPN ####[facility] Ijoisnrppa5830 [place] [address]Dr. Garima Pulliam Chloride [Moles/Vol] 107 mmol/L Normal 98-107 [facility] Comment on above: Performed By: #### C MP, BNP, HSTROPN ####[facility] Krevwzuzrm7358 [place] [address]Dr. Garima Pulliam CO2 [Moles/Vol] 26.0 mmol/L Normal 21.0-32.0 [facility] Comment on above: Performed By: #### C MP, BNP, HSTROPN ####[facility] Mclzwlxqzy5661 [place] [address]Dr. Garima Pulliam Creatinine [Mass/Vol] 0.65 mg/dL Critically low 0.70-1.30 [facility] Comment on above: Performed By: #### C MP, BNP, HSTROPN ####[facility] Wvnzbnwlbt6050 [place] [address]Dr. Yilan Pulliam EGFR-AF BAHRAINI >60 Normal >=60 [facility] Comment on above: Performed By: #### C MP, BNP, HSTROPN ####[facility] Zlzqvojfag217[address] [place] [address]Dr. Garima Pulliam EGFR-NON AF BAHRAINI >60 Normal >=60 [facility] Comment on above: Performed By: #### C MP, BNP, HSTROPN ####[facility] Nmnrpmszja7186 [place] [address]Dr. Garima Pulliam Globulin (S) [Mass/Vol] 2.4 g/dL Normal [facility] Comment on above: Performed By: #### C MP, BNP, HSTROPN ####[facility] Qdpnvzrarm[address] [place], [place] [address]Dr. Garima Pulliam Glucose [Mass/Vol] 85 mg/dL Normal 74-106 [facility] Comment on above: Performed By: #### C MP, BNP, HSTROPN ####[facility] Mehuufaxnr6190 [place] [address]Dr. Garima Pulliam Potassium [Moles/Vol] 3.7 mmol/L Normal 3.5-5.1 [facility] Comment on above: Performed By: #### C MP, BNP, HSTROPN ####[facility] Biprduqgsq2641 [place] [address]Dr. Garima Pulliam Protein [Mass/Vol] 6.0 g/dL Critically low 6.4-8.2 [facility] Comment on above: Performed By: #### C MP, BNP, HSTROPN ####[facility] Diqvaofgrm0050 [place] [address]Dr. Garima Pulliam Sodium [Moles/Vol] 141 mmol/L Normal 136-145 [facility] Comment on above: Performed By: #### C MP, BNP, HSTROPN ####[facility] Ttwjfxlznp2715 [place] [address]Dr. Garima Pulliam Urea nitrogen [Mass/Vol] 5.0 mg/dL Critically low 7.0-18.0 [facility] Comment on above: Performed By: #### C MP, BNP, HSTROPN ####[facility] Gjuqenwjdl2813 [place] [address]Dr. Garima Pulliam Urea nitrogen/Creatinine [Mass ratio] 7.7 mg/mg Normal [facility] Comment on above: Performed By: #### C MP, BNP, HSTROPN ####[facility] Ycfxnajssu9668 [place] [address]Dr. Garima Pulliam PROTIMEon 01-12-2023 INR Coag (PPP) [Relative time] 1.16 {INR} Normal [facility] Comment on above: Performed By: #### P TT, PT ####[facility] Ugeomnqcwx4897 [place] [address]Dr. Garima Pulliam INR GUIDELINES SEE BELOW Normal [facility] Comment on above: Result Comment: WESLEY RED INR: 2.0 - 3.0 CONDITIONS NOT LISTED BELOW 2.5 - 3.5 FOR PROSTHETIC HEART VALVE REPLACEMENT 2.5 - 3.5 RECURRENT THROMBOSIS Performed By: #### P TT, PT ####[facility] Snnaqydrab[address] [place], [place] [address]Dr. Garima Pulliam PT Coag (PPP) [Time] 12.2 s Critically high 9.0-11.6 [facility] Comment on above: Performed By: #### P TT, PT ####[facility] Aobhguulln7578 [place] [address]Dr. Garima Pulliam PTTon 01-12-2023 aPTT Coag (Bld) [Time] 29.1 s Normal 22.3-36.2 [facility] Comment on above: Performed By: #### P TT, PT ####[facility] Ikmeceonor[address] [place], [place] [address]Dr. Garima Pulliam TROPONIN, HIGH SENSITIVITYon 01-12-2023 HSTROP 10.3 pg/mL Normal 4.0-76.1 [facility] Comment on above: Result Comment: CUT- OFF POINTS HAVE BEEN ESTABLISHED BASED ON THE FOURTH UNIVERSAL DEFINITIONS OF MYOCARDIALINFARCTION. THE UPPER REFERENCE LIMIT (URL) OF TROPONIN, DEFINED THE 99TH PERCENTILE OFcTnI DISTRIBUTION IN A REFERENCE POPULATION, HAS BEEN CONFIRMED THE DECISION THRESHOLDFOR ND DIAGNOSIS. Performed By: #### H STROPN ####[facility] Firfcnwypd9[address] [place] [address]Dr. Garima Pulliam HSTROP 9.2 pg/mL Normal 4.0-76.1 [facility] Comment on above: Result Comment: CUT- OFF POINTS HAVE BEEN ESTABLISHED BASED ON THE FOURTH UNIVERSAL DEFINITIONS OF MYOCARDIALINFARCTION. THE UPPER REFERENCE LIMIT (URL) OF TROPONIN, DEFINED THE 99TH PERCENTILE OFcTnI DISTRIBUTION IN A REFERENCE POPULATION, HAS BEEN CONFIRMED THE DECISION THRESHOLDFOR ND DIAGNOSIS. Performed By: #### C MP, BNP, HSTROPN ####[facility] Wcjzamcwba0766 [place] [address]Dr. Garima Pulliam XR CHEST 1 Von 01-12-2023 XR CHEST 1 V Normal [facility] XR CHEST 1 Von 01-01-2023 XR CHEST 1 V Normal [facility] CARDIAC NASH 3-6on 3 CK [Catalytic activity/Vol] 196 U/L Normal 39-308 [facility] Comment on above: Performed By: #### C MREP ####[facility] Gjjsqppojr79[address] [place] [address]Dr. Garima Pulliam CK.MB [Mass/Vol] 7.41 ng/mL Critically high <=3.60 [facility] Comment on above: Performed By: #### C MREP ####[facility] Sbervtxfqe2372 [place] [address]Dr. Garima Pulliam HSTROP 10.3 pg/mL Normal 4.0-76.1 [facility] Comment on above: Result Comment: CUT- OFF POINTS HAVE BEEN ESTABLISHED BASED ON THE FOURTH UNIVERSAL DEFINITIONS OF MYOCARDIALINFARCTION. THE UPPER REFERENCE LIMIT (URL) OF TROPONIN, DEFINED THE 99TH PERCENTILE OFcTnI DISTRIBUTION IN A REFERENCE POPULATION, HAS BEEN CONFIRMED THE DECISION THRESHOLDFOR ND DIAGNOSIS. Performed By: #### C MREP ####[facility] [address]jhqiea[address] [place] [id number]. Garima Pulliam XR CHEST 1 Von 12-26-2022 XR CHEST 1 V Normal [facility] BNPon 12-25-2022 Natriuretic peptide B (Bld) [Mass/Vol] 98.0 pg/mL Normal <=900.0 [facility] Comment on above: Performed By: #### B AMRVIN FRENCH CMADM ####[facility] Uiambqtfrc8888 [place] [address]Dr. Garima Pulliam CARDIAC NASH ADMITon 023 CK [Catalytic activity/Vol] 208 U/L Normal 39-308 [facility] Comment on above: Performed By: #### B MARVIN FRENCH CMADM ####[facility] Cgmpaqgoul7627 [place] [address]Dr. Garima Pulliam CK.MB [Mass/Vol] 7.63 ng/mL Critically high <=3.60 [facility] Comment on above: Performed By: #### B MARVIN FRENCH CMADM ####[facility] C[address]owoxofi[address] [place], [place] [address]Dr. Garima Pulliam HSTROP 8.8 pg/mL Normal 4.0-76.1 [facility] Comment on above: Result Comment: CUT- OFF POINTS HAVE BEEN ESTABLISHED BASED ON THE FOURTH UNIVERSAL DEFINITIONS OF MYOCARDIALINFARCTION. THE UPPER REFERENCE LIMIT (URL) OF TROPONIN, DEFINED THE 99TH PERCENTILE OFcTnI DISTRIBUTION IN A REFERENCE POPULATION, HAS BEEN CONFIRMED THE DECISION THRESHOLDFOR ND DIAGNOSIS. Performed By: #### B MARVIN FRENCH CMADM ####[facility] Otteieuqtg[address] [place], [place] [address]Dr. Garima Pulliam DORIS 83 ng/mL Normal 16-96 [facility] Comment on above: Performed By: #### B MARVIN FRENCH CMADM ####[facility] Zt[address]vqhfbb[address] [place], [place] [address]Dr. Garima Pulliam CBC AUTO DIFFon 12-25-2022 BASO # 0.0 103/ul Normal 0.0-0.1 [facility] Comment on above: Performed By: #### C BC ####[facility] Oumfhvxuae[address] [place], [place] [address]Dr. Garima Pulliam Basophils/100 WBC (Bld) 0.0 % Critically low 0.2-2.0 [facility] Comment on above: Performed By: #### C BC ####[facility] Lwlisssnvy9025 [place] [address]Dr. Garima Pulliam EO # 0.0 103/ul Normal 0.0-0.7 [facility] Comment on above: Performed By: #### C BC ####[facility] Zkodmomdof[address] [place], [place] [address]Dr. Garima Pulliam Eosinophils/100 WBC (Bld) 0.7 % Critically low 0.9-7.0 [facility] Comment on above: Performed By: #### C BC ####[facility] Zvpzghceai[address] [place], [place] [address]Dr. Graima Pulliam Erythrocyte distribution width (RBC) [Ratio] 13.4 % Normal 11.0-15.0 [facility] Comment on above: Performed By: #### C BC ####[facility] Fckpiyghgq378[address] [place], [place] [address]Dr. Garima Pulliam Hematocrit (Bld) [Volume fraction] 42.9 % Normal 42.0-54.0 [facility] Comment on above: Performed By: #### C BC ####[facility] Zutgnflxjh259[address] [place], [place] [address]Dr. Garima Pulliam Hemoglobin (Bld) [Mass/Vol] 14.4 g/dL Normal 14.0-18.0 [facility] Comment on above: Performed By: #### C BC ####[facility] Udjtymmyzd[address] [place], [place] [address]Dr. Garima Pulliam IG # 0.00 10e3/ul Normal 0.00-0.03 [facility] Comment on above: Performed By: #### C BC ####[facility] Sedavwvhjv[address] [place], [place] [address]Dr. Garima Pulliam IG % 0.0 % Normal 0.0-0.5 [facility] Comment on above: Performed By: #### C BC ####[facility] L[address]qgawxih[address] [place], [place] [address]Dr. Garima Pulliam LYMPH # 2.4 103/ul Normal 1.2-3.8 [facility] Comment on above: Performed By: #### C BC ####[facility] Uibytrufrd7449 [place] [id number]. Chapisrenu Pulliam Lymphocytes/100 WBC (Bld) 29.2 % Normal 20.5-60.0 [facility] Comment on above: Performed By: #### C BC ####[facility] Bfnjifrffb7247 [place] [id number]. Garima Pulliam MANUAL DIFF REQ NO Normal [facility] Comment on above: Performed By: #### C BC ####[facility] Uzkewiwekk2761 [place] [id number]. Garima Pulliam MCH (RBC) [Entitic mass] 30.7 pg Normal 25.9-34.0 [facility] Comment on above: Performed By: #### C BC ####[facility] Txxqihvyce[address] [place], [place] [address]Dr. Garima Pulliam MCHC (RBC) [Mass/Vol] 33.6 g/dL Normal 29.9-35.2 [facility] Comment on above: Performed By: #### C BC ####[facility] Gorqdcfasx[address] [place], [place] [address]Dr. Garima Pulliam MCV (RBC) [Entitic vol] 91.5 fL Normal 80.0-94.0 [facility] Comment on above: Performed By: #### C BC ####[facility] Lzrlfanqmj[address] [place], [place] [address]Dr. Garima Pulliam MONO # 0.0 103/ul Critically low 0.3-0.8 [facility] Comment on above: Performed By: #### C BC ####[facility] Llfdzyxrbc8360 [place] [address]Dr. Garima Pulliam Monocytes/100 WBC (Bld) 8.0 % Normal 1.7-12.0 [facility] Comment on above: Performed By: #### C BC ####[facility] Hujesoeuch[address] [place], [place] [address]Dr. Garima Pulliam NEUT # 5.1 103/ul Normal 1.4-6.5 [facility] Comment on above: Performed By: #### C BC ####[facility] Qlijneyjyj2316 [place], [place] [address]Vj. Garima Pulliam Neutrophils/100 WBC (Bld) 62.8 % Normal 43.0-75.0 [facility] Comment on above: Performed By: #### C BC ####[facility] Qhpdfgnwqm6300 [place], [place] [address]Cz. Garima Pulliam Platelet mean volume (Bld) [Entitic vol] 8.6 fL Critically low 9.5-13.5 [facility] Comment on above: Performed By: #### C BC ####[facility] Shynbknyua8824 [place] [id number]. Garima Pulliam PLT 200 103/ul Normal 150-450 [facility] Comment on above: Performed By: #### C BC ####[facility] Dqqmxgzynh5665 [place] [id number]. Garima Pulliam RBC 4.69 106/ul Critically low 4.70-6.10 [facility] Comment on above: Performed By: #### C BC ####[facility] Ncjgctmwdu4715 [place], [place] [address]Fi. Garima Pulliam WBC 8.2 103/ul Normal 4.0-11.0 [facility] Comment on above: Performed By: #### C BC ####[facility] Ylfvohusgk5554 [place], [place] [address]Hx. Garima Pulliam [facility]on SARS-CoV-2 (COVID-19) RNA MARIE+probe Ql (Unsp spec) Not detected Normal NOT DETECTED [facility] Comment on above: Result Comment: When [...] for this test is supported by the Sheet Metal Apprentice of Health and Human Service's declaration that [...] be used). Performed By: #### C VDTBH ####[facility] Hwgizwpxfd[address] [place], [place] [address]Dr. Garima Pulliam INFLUENZA A AND B AGon 12-25 INFLUANEGH SEE BELOW Normal [facility] Comment on above: Result Comment: Nega tive for Flu A protein angiten. Infection due to Flu A cannot be ruled out. Flu A angiten in the sample may be below the detection limit of the test. Performed By: #### I NFLUAB ####[facility] Ifkbtiawtu[address] [place], [place] [address]Dr. Garima Pulliam INFLUBNEGH SEE BELOW Normal [facility] Comment on above: Result Comment: Nega tive for Flu B protein antigen. Infection due to Flu B cannot be ruled out. Flu B antigen in the sample may be below the detection limit of the test. Performed By: #### I NFLUAB ####[facility] Rwfxsryikn[address] [place], [place] [address]Dr. Garima Pulliam INFLUENZA A AG Negative Normal NEGATIVE SEE COMMENT [facility] Comment on above: Performed By: #### I NFLUAB ####[facility] Cvhsyswjay[address] [place], [place] [address]Dr. renu [facility] INFLUENZA B AG Negative Normal NEGATIVE SEE COMMENT [facility] Comment on above: Performed By: #### I NFLUAB ####[facility] Weybptscff[address] [place], [place] [address]Dr. Garima Pulliam PROF CHEM 8 (BAS METB)on Anion gap [Moles/Vol] 11.1 mmol/L Normal Th [facility] Comment on above: Performed By: #### B PLASTIC MAKER, BMP, CMADM ####[facility] Hqcqfxaueh[address] [place], [place] [address]Dr. Garima Pulliam Calcium [Mass/Vol] 8.5 mg/dL Normal 8.5-10.1 [facility] Comment on above: Performed By: #### B PLASTIC MAKER, MARVIN, CMADM ####[facility] Ndxmyhshsa1593 [place] [id number]. Garima Pulliam Chloride [Moles/Vol] 106 mmol/L Normal 98-107 [facility] Comment on above: Performed By: #### B PLASTIC MAKER, BMP, CMADM ####[facility] Ywssjgfvsr8078 [place] [address]Dr. Garima Pulliam CO2 [Moles/Vol] 27.4 mmol/L Normal 21.0-32.0 [facility] Comment on above: Performed By: #### B PLASTIC MAKER, MARVIN, CMADM ####[facility] Nilcpudydl4083 [place] [address]Dr. Garima Pulliam Creatinine [Mass/Vol] 0.65 mg/dL Critically low 0.70-1.30 [facility] Comment on above: Performed By: #### B PLASTIC MAKER, MARVIN, CMADM ####[facility] Wgkehszfrg0925 [place] [address]Dr. Garima Pulliam EGFR-AF BAHRAINI >60 Normal >=60 [facility] Comment on above: Performed By: #### B PLASTIC MAKER, BMP, CMADM ####[facility] Atnrpelyat6444 [place] [address]Dr. Garima Pulliam EGFR-NON AF BAHRAINI >60 Normal >=60 [facility] Comment on above: Performed By: #### B PLASTIC MAKER, BMP, CMADM ####[facility] Phigrmxuxt3430 [place] [address]Dr. Garima Pulliam Glucose [Mass/Vol] 140 mg/dL Critically high 74-106 [facility] Comment on above: Performed By: #### B PLASTIC MAKER, BMP, CMADM ####[facility] Kxkwtquorq5525 [place] [address]Dr. Garima Pulliam Potassium [Moles/Vol] 3.5 mmol/L Normal 3.5-5.1 [facility] Comment on above: Performed By: #### B PLASTIC MAKER, BMP, CMADM ####[facility] Hervjzteew6870 [place] [address]Dr. Garima Pulliam Sodium [Moles/Vol] 141 mmol/L Normal 136-145 [facility] Comment on above: Performed By: #### B PLASTIC MAKER, BMP, CMADM ####[facility] Opsnjnaikt1781 [place] [address]Dr. Garima Pulliam Urea nitrogen [Mass/Vol] 8.0 mg/dL Normal 7.0-18.0 [facility] Comment on above: Performed By: #### B PLASTIC MAKER, BMP, CMADM ####[facility] Kcuwfixieo4838 [place] [address]Dr. Garima Pulliam Urea nitrogen/Creatinine [Mass ratio] 12.3 mg/mg Normal [facility] Comment on above: Performed By: #### B PLASTIC MAKER, BMP, CMADM ####[facility] Wvqmolxsym[address] [place], [place] [address]Dr. Garima Pulliam CARDIAC NASH ADMITon 023 CK [Catalytic activity/Vol] 165 U/L Normal 39-308 [facility] Comment on above: Performed By: #### B DAVID, CMADM ####[facility] Gdbhzablli[address] [place], [place] [address]Dr. Garima Pulliam CK.MB [Mass/Vol] 6.48 ng/mL Critically high <=3.60 [facility] Comment on above: Performed By: #### B MP, CMADM ####[facility] Hxccyqxswp[address] [place], [place] [address]Dr. Garima Pulliam HSTROP 11.7 pg/mL Normal 4.0-76.1 [facility] Comment on above: Result Comment: CUT- OFF POINTS HAVE BEEN ESTABLISHED BASED ON THE FOURTH UNIVERSAL DEFINITIONS OF MYOCARDIALINFARCTION. THE UPPER REFERENCE LIMIT (URL) OF TROPONIN, DEFINED THE 99TH PERCENTILE OFcTnI DISTRIBUTION IN A REFERENCE POPULATION, HAS BEEN CONFIRMED THE DECISION THRESHOLDFOR ND DIAGNOSIS. Performed By: #### B MP, CMADM ####[facility] Kuorzqadaj[address] [place], [place] [address]Dr. Garima Pulliam DORIS 83 ng/mL Normal 16-96 [facility] Comment on above: Performed By: #### B MP, CMADM ####[facility] Wywpuwpvqw2042 [place] [address]Dr. Garima Pulliam CBC AUTO DIFFon 12-10-2022 BASO # 0.0 103/ul Normal 0.0-0.1 [facility] Comment on above: Performed By: #### C BC ####[facility] Msrgzwyydg[address] [place], [place] [address]Dr. Garima Heraclio Basophils/100 WBC (Bld) 0.3 % Normal 0.2-2.0 [facility] Comment on above: Performed By: #### C BC ####[facility] Ppeskizvox[address] [place], [place] [address]Dr. Garima Pulliam EO # 0.1 103/ul Normal 0.0-0.7 [facility] Comment on above: Performed By: #### C BC ####[facility] Avkmjxzprt[address] [place], [place] [address]Dr. Garima Pulliam Eosinophils/100 WBC (Bld) 0.4 % Critically low 0.9-7.0 [facility] Comment on above: Performed By: #### C BC ####[facility] Yudacfdjmg[address] [place], [place] [address]Dr. Garima Pulliam Erythrocyte distribution width (RBC) [Ratio] 13.2 % Normal 11.0-15.0 [facility] Comment on above: Performed By: #### C BC ####[facility] Ymwldtbznn814[address] [place], [place] [address]Dr. Garima Pulliam Hematocrit (Bld) [Volume fraction] 42.4 % Normal 42.0-54.0 [facility] Comment on above: Performed By: #### C BC ####[facility] Dfoilzrlik[address] [place], [place] [address]Dr. Garima Pulliam Hemoglobin (Bld) [Mass/Vol] 14.4 g/dL Normal 14.0-18.0 [facility] Comment on above: Performed By: #### C BC ####[facility] Wjhsvbmkxr7980 [place] [id number]. Garima Heraclio IG # 0.05 10e3/ul Critically high 0.00-0.03 [facility] Comment on above: Performed By: #### C BC ####[facility] Ejahbmihju9852 [place] [address]Dr. Garima Heraclio IG % 0.4 % Normal 0.0-0.5 [facility] Comment on above: Performed By: #### C BC ####[facility] N[address]vloigpk[address] [place], [place] [address]Dr. Garima Pulliam LYMPH # 0.8 103/ul Critically low 1.2-3.8 [facility] Comment on above: Performed By: #### C BC ####[facility] Mhzdmztkpr[address] [place], [place] [address]Dr. Chapisrenu Pulliam Lymphocytes/100 WBC (Bld) 6.5 % Critically low 20.5-60.0 [facility] Comment on above: Performed By: #### C BC ####[facility] [address]zuxx[address] [place], [place] [address]Dr. Chapisrenu Pulliam MANUAL DIFF REQ NO Normal [facility] Comment on above: Performed By: #### C BC ####[facility] V[address]cnvcsfe[address] [place], [place] [address]DrAdalberto Garima Pulliam MCH (RBC) [Entitic mass] 30.5 pg Normal 25.9-34.0 [facility] Comment on above: Performed By: #### C BC ####[facility] O[address] [place], [place] [address]DrAdalberto Garima Heraclio MCHC (RBC) [Mass/Vol] 34.0 g/dL Normal 29.9-35.2 [facility] Comment on above: Performed By: #### C BC ####[facility] Dqmumlmbtc[address] [place], [place] [address]DrAdalberto Garima Heraclio MCV (RBC) [Entitic vol] 89.8 fL Normal 80.0-94.0 [facility] Comment on above: Performed By: #### C BC ####[facility] Jdotatvtgl[address] [place], [place] [address]Dr. Garima Pulliam MONO # 0.2 103/ul Critically low 0.3-0.8 [facility] Comment on above: Performed By: #### C BC ####[facility] Hiqrkhtgfe78[address] [place] [id number]. Garima Pulliam Monocytes/100 WBC (Bld) 2.0 % Normal 1.7-12.0 [facility] Comment on above: Performed By: #### C BC ####[facility] Nwfngxwvdb70[address] [place] [address]Dr. Chapisrenu Heraclio NEUT # 10.5 103/ul Critically high 1.4-6.5 The [facility] Comment on above: Performed By: #### C BC ####[facility] Xcsjkylamp2042 [place] [address]Dr. Garima Pulliam Neutrophils/100 WBC (Bld) 90.4 % Critically high 43.0-75.0 [facility] Comment on above: Performed By: #### C BC ####[facility] Qaqufdelbv9166 [place] [address]Dr. Garima Pulliam Platelet mean volume (Bld) [Entitic vol] 9.4 fL Critically low 9.5-13.5 [facility] Comment on above: Performed By: #### C BC ####[facility] Qdcmguqksm0634 [place] [address]Dr. Garima Pulliam PLT 198 103/ul Normal 150-450 [facility] Comment on above: Performed By: #### C BC ####[facility] Bcutfmwsvl8414 [place] [address]Dr. Garima Pulliam RBC 4.72 106/ul Normal 4.70-6.10 [facility] Comment on above: Performed By: #### C BC ####[facility] Mgxlortfkm4[address] [place] [id number]. Garima Pulliam WBC 11.6 103/ul Critically high 4.0-11.0 [facility] Comment on above: Performed By: #### C BC ####[facility] Eazcghuwex14[address] [place] [address]DrAdalberto Pulliam PROF CHEM 8 (BAS METB)on Anion gap [Moles/Vol] 11.3 mmol/L Normal Th [facility] Comment on above: Performed By: #### B NANCY HERNANDEZ ####[facility] Wtbzniwqsh22[address] [place] [address]Dr. Garima Pulliam Calcium [Mass/Vol] 8.9 mg/dL Normal 8.5-10.1 [facility] Comment on above: Performed By: #### B NANCY HERNANDEZ ####[facility] Khmeztbare2251 [place] [address]Dr. Garima Pulliam Chloride [Moles/Vol] 103 mmol/L Normal 98-107 [facility] Comment on above: Performed By: #### B NANCY HERNANDEZ ####[facility] Giifqflfom[address] [place], [place] [address]Dr. Garima Pulliam CO2 [Moles/Vol] 28.2 mmol/L Normal 21.0-32.0 [facility] Comment on above: Performed By: #### NANCY Larkin MP ####[facility] Xukkglhfpj26[address] [place] [address]Dr. Chapisrenu Pulliam Creatinine [Mass/Vol] 0.60 mg/dL Critically low 0.70-1.30 [facility] Comment on above: Performed By: #### NANCY Larkin MP ####[facility] Jujkajqugb4724 [place] [address]Dr. Garima Pulliam EGFR-AF BAHRAINI >60 Normal >=60 [facility] Comment on above: Performed By: #### NANCY Larkin MP ####[facility] Ajonpyokev7156 [place] [address]Dr. Garima Pulliam EGFR-NON AF BAHRAINI >60 Normal >=60 [facility] Comment on above: Performed By: #### NANCY Larkin MP ####[facility] Adwaeiqmnn[address] [place], [place] [address]Dr. Garima Pulliam Glucose [Mass/Vol] 166 mg/dL Critically high 74-106 [facility] Comment on above: Performed By: #### B MP, CMADM ####[facility] Lzajmzirln13[address] [place] [address]Dr. Garima Pulliam Potassium [Moles/Vol] 3.5 mmol/L Normal 3.5-5.1 [facility] Comment on above: Performed By: #### B MP, CMADM ####[facility] Ssddolfyod[address] [place] [address]Dr. Garima Pulliam Sodium [Moles/Vol] 139 mmol/L Normal 136-145 The [facility] Comment on above: Performed By: #### B DAVID, CMADM ####[facility] Qqwgctfjph7341 [place] [address]Dr. Garima Heraclio Urea nitrogen [Mass/Vol] 9.0 mg/dL Normal 7.0-18.0 [facility] Comment on above: Performed By: #### B DAVID, NANCY ####[facility] K[address]rpabtuz[address] [place], [place] [address]Dr. Garima Heraclio Urea nitrogen/Creatinine [Mass ratio] 15.0 mg/mg Normal [facility] Comment on above: Performed By: #### B DAVID, CMAANA ROSA ####[facility] Mrkzgdqvwk[address] [place], [place] [address]Dr. Garima Pulliam XR CHEST 1 Von 12-10-2022 XR CHEST 1 V Normal [facility] BNPon 11-27-2022 Natriuretic peptide B (Bld) [Mass/Vol] 95.0 pg/mL Normal <=900.0 [facility] Comment on above: Performed By: #### C MP, HSTROPN, BNP ####[facility] Uviweckypm[address] [place], [place] [address]Dr. Garima Heraclio CBC AUTO DIFFon 11-27-2022 BASO # 0.0 103/ul Normal 0.0-0.1 [facility] Comment on above: Performed By: #### C BC ####[facility] Lquysytzww[address] [place], [place] [address]Dr. Garima Heraclio Basophils/100 WBC (Bld) 0.2 % Normal 0.2-2.0 [facility] Comment on above: Performed By: #### C BC ####[facility] Ntoslrpwnt9224 [place] [phone]. Garima Pulliam EO # 0.2 103/ul Normal 0.0-0.7 [facility] Comment on above: Performed By: #### C BC ####[facility] Yokfyrbqpc5506 [place] [address]Dr. Garima Pulliam Eosinophils/100 WBC (Bld) 2.0 % Normal 0.9-7.0 [facility] Comment on above: Performed By: #### C BC ####[facility] Lubikvajfu[address] [place], [place] [address]Dr. Garima Pulliam Erythrocyte distribution width (RBC) [Ratio] 13.2 % Normal 11.0-15.0 [facility] Comment on above: Performed By: #### C BC ####[facility] Axajltwqwa[address] [place], [place] [address]Dr. Garima Pulliam Hematocrit (Bld) [Volume fraction] 42.4 % Normal 42.0-54.0 [facility] Comment on above: Performed By: #### C BC ####[facility] Entsemvups[address] [place], [place] [address]Dr. Garima Pulliam Hemoglobin (Bld) [Mass/Vol] 14.4 g/dL Normal 14.0-18.0 [facility] Comment on above: Performed By: #### C BC ####[facility] Dpvzdsnlnl[address] [place], [place] [address]Dr. Garima Pulliam IG # 0.04 10e3/ul Critically high 0.00-0.03 [facility] Comment on above: Performed By: #### C BC ####[facility] Jnvmxbkazj[address] [place], [place] [address]Dr. Garima Pulliam IG % 0.4 % Normal 0.0-0.5 [facility] Comment on above: Performed By: #### C BC ####[facility] Wbmpeeiweh[address] [place], [place] [address]Dr. Garima Pulliam LYMPH # 2.2 103/ul Normal 1.2-3.8 [facility] Comment on above: Performed By: #### C BC ####[facility] Boctnelkky2105 [place] [address]Dr. Garima Pulliam Lymphocytes/100 WBC (Bld) 21.5 % Normal 20.5-60.0 [facility] Comment on above: Performed By: #### C BC ####[facility] Sjxoogweli27[address] [place] [phone]. Garima Heraclio MANUAL DIFF REQ NO Normal [facility] Comment on above: Performed By: #### C BC ####[facility] Giopydujfo9217 [place] [phone]. Garima Heraclio MCH (RBC) [Entitic mass] 30.4 pg Normal 25.9-34.0 [facility] Comment on above: Performed By: #### C BC ####[facility] Yiimwavwgh6759 [place] [address]Dr. Garima Heraclio MCHC (RBC) [Mass/Vol] 34.0 g/dL Normal 29.9-35.2 [facility] Comment on above: Performed By: #### C BC ####[facility] Wurzarvsuh8376 [place] [address]Dr. Garima Pulliam MCV (RBC) [Entitic vol] 89.6 fL Normal 80.0-94.0 [facility] Comment on above: Performed By: #### C BC ####[facility] Xedxmussgg6308 [place] [address]Dr. Garima Pulliam MONO # 0.8 103/ul Normal 0.3-0.8 [facility] Comment on above: Performed By: #### C BC ####[facility] Cppbjjhwax6629 [place] [address]Dr. Chapisrenu Pulliam Monocytes/100 WBC (Bld) 7.7 % Normal 1.7-12.0 [facility] Comment on above: Performed By: #### C BC ####[facility] Mkwmlxljjb[address] [place], [place] [address]Dr. Garima Pulliam NEUT # 7.0 103/ul Critically high 1.4-6.5 [facility] Comment on above: Performed By: #### C BC ####[facility] Kvfjrjzfku0691 [place] [address]Dr. Garima Pulliam Neutrophils/100 WBC (Bld) 68.2 % Normal 43.0-75.0 [facility] Comment on above: Performed By: #### C BC ####[facility] Zqqsshrfed5883 [place] [phone]. Chapisrenu Pulliam Platelet mean volume (Bld) [Entitic vol] 8.9 fL Critically low 9.5-13.5 [facility] Comment on above: Performed By: #### C BC ####[facility] Zwitswjsth9494 [place] [address]Dr. Garima Pulliam PLT 222 103/ul Normal 150-450 [facility] Comment on above: Performed By: #### C BC ####[facility] Xzmlrettgl2772 [place] [address]Dr. Garima Pulliam RBC 4.73 106/ul Normal 4.70-6.10 [facility] Comment on above: Performed By: #### C BC ####[facility] Xpfraoynou0093 [place] [address]Dr. Garima Pulliam WBC 10.3 103/ul Normal 4.0-11.0 [facility] Comment on above: Performed By: #### C BC ####[facility] Cykgmixggr2929 [place] [address]Dr. Garima Pulliam PROF 14(COMP METB)on 023 Albumin [Mass/Vol] 3.7 g/dL Normal 3.4-5.0 [facility] Comment on above: Performed By: #### C MP, HSTROPN, BNP ####[facility] Ujjsakcmmr4098 [place] [address]Dr. Chapisrenu Pulliam Albumin/Globulin [Mass ratio] 1.5 {ratio} Normal [facility] Comment on above: Performed By: #### C MP, HSTROPN, BNP ####[facility] Mthudcwhqc4426 [place] [address]Dr. Garima Pulliam ALP [Catalytic activity/Vol] 79 U/L Normal 46-116 [facility] Comment on above: Performed By: #### C MP, HSTROPN, BNP ####[facility] Mzzsmgvhsz8286 [place] [address]Dr. Garima Pulliam ALT [Catalytic activity/Vol] 32 U/L Normal 16-63 [facility] Comment on above: Performed By: #### C MP, HSTROPN, BNP ####[facility] Frhbdsrikf5926 [place] [address]Dr. Garima Pulliam Anion gap [Moles/Vol] 9.5 mmol/L Normal [facility] Comment on above: Performed By: #### C MP, HSTROPN, BNP ####[facility] Porbufwmqw365[address] [place], [place] [address]Dr. Garima Pulliam AST [Catalytic activity/Vol] 25 U/L Normal 15-37 [facility] Comment on above: Performed By: #### C MP, HSTROPN, BNP ####[facility] Blqtvvffai[address] [place], [place] [address]Dr. Chapislan Pulliam Bilirubin [Mass/Vol] 0.4 mg/dL Normal 0.2-1.0 [facility] Comment on above: Performed By: #### C MP, HSTROPN, BNP ####[facility] Firgfrkckm[address] [place], [place] [address]Dr. Garima Pulliam Calcium [Mass/Vol] 8.9 mg/dL Normal 8.5-10.1 [facility] Comment on above: Performed By: #### C MP, HSTROPN, BNP ####[facility] Kx[address]uyfugn[address] [place], [place] [address]Dr. Chapislan Pulliam Chloride [Moles/Vol] 103 mmol/L Normal 98-107 [facility] Comment on above: Performed By: #### C MP, HSTROPN, BNP ####[facility] Cczdiwrbxu[address] [place], [place] [address]Dr. Yilan Pulliam CO2 [Moles/Vol] 28.6 mmol/L Normal 21.0-32.0 [facility] Comment on above: Performed By: #### C MP, HSTROPN, BNP ####[facility] Ujfkumujkm7019 [place] [address]Dr. Garima Pulliam Creatinine [Mass/Vol] 0.72 mg/dL Normal 0.70-1.30 [facility] Comment on above: Performed By: #### C MP, HSTROPN, BNP ####[facility] Prcxkqkkma1586 [place] [address]Dr. Garima Pulliam EGFR-AF BAHRAINI >60 Normal >=60 [facility] Comment on above: Performed By: #### C MP, HSTROPN, BNP ####[facility] Uxvxcitghn4268 [place] [address]Dr. Garima Pulliam EGFR-NON AF BAHRAINI >60 Normal >=60 [facility] Comment on above: Performed By: #### C MP, HSTROPN, BNP ####[facility] Heghelopbu9479 [place] [address]Dr. Garima Pulliam Globulin (S) [Mass/Vol] 2.5 g/dL Normal [facility] Comment on above: Performed By: #### C MP, HSTROPN, BNP ####[facility] Vjugetwmkv[address] [place], [place] [address]Dr. Garima Pulliam Glucose [Mass/Vol] 114 mg/dL Critically high 74-106 [facility] Comment on above: Performed By: #### C MP, HSTROPN, BNP ####[facility] Sslzkdgzqd[address] [place], [place] [address]Dr. Garima Pulliam Potassium [Moles/Vol] 4.1 mmol/L Normal 3.5-5.1 [facility] Comment on above: Performed By: #### C MP, HSTROPN, BNP ####[facility] Nzhtlrapua[address] [place], [place] [address]Dr. Garima Pulliam Protein [Mass/Vol] 6.2 g/dL Critically low 6.4-8.2 Th [facility] Comment on above: Performed By: #### C MP, HSTROPN, BNP ####[facility] Zvewuhepyz064[address] [place], [place] [address]Dr. Yilan Pulliam Sodium [Moles/Vol] 137 mmol/L Normal 136-145 The [facility] Comment on above: Performed By: #### C MP, HSTROPN, BNP ####[facility] Pnbdsbmiya1431 [place] [address]Dr. Garima Pulliam Urea nitrogen [Mass/Vol] 13.0 mg/dL Normal 7.0-18.0 [facility] Comment on above: Performed By: #### C MP, HSTROPN, BNP ####[facility] Qpvtyoudyd3495 [place] [address]Dr. Garima Pulliam Urea nitrogen/Creatinine [Mass ratio] 18.1 mg/mg Normal [facility] Comment on above: Performed By: #### C MP, HSTROPN, BNP ####[facility] Vufuudtkiz[address] [place], [place] [address]Dr. Garima Pulliam TROPONIN, HIGH SENSITIVITYon 11-27-2022 HSTROP 11.8 pg/mL Normal 4.0-76.1 [facility] Comment on above: Result Comment: CUT- OFF POINTS HAVE BEEN ESTABLISHED BASED ON THE FOURTH UNIVERSAL DEFINITIONS OF MYOCARDIALINFARCTION. THE UPPER REFERENCE LIMIT (URL) OF TROPONIN, DEFINED THE 99TH PERCENTILE OFcTnI DISTRIBUTION IN A REFERENCE POPULATION, HAS BEEN CONFIRMED THE DECISION THRESHOLDFOR ND DIAGNOSIS. Performed By: #### C MP, HSTROPN, BNP ####[facility] Udealdsdxt[address] [place], [place] [address]Dr. Garima Pulliam XR CHEST 1 Von 11-27-2022 XR CHEST 1 V Normal [facility] BNPon 11-20-2022 Natriuretic peptide B (Bld) [Mass/Vol] 73.0 pg/mL Normal <=900.0 [facility] Comment on above: Performed By: #### B MP, HSTROPN, BNP ####[facility] Cixvoztwiy[address] [place], [place] [address]Dr. Garima Pulliam CBC AUTO DIFFon 11-20-2022 BASO # 0.0 103/ul Normal 0.0-0.1 [facility] Comment on above: Performed By: #### C BC ####[facility] Lxxohowbdh4974 [place] [address]Dr. Garima Pulliam Basophils/100 WBC (Bld) 0.3 % Normal 0.2-2.0 [facility] Comment on above: Performed By: #### C BC ####[facility] Wemzresmag6584 [place] [address]Dr. Garima Pulliam EO # 0.2 103/ul Normal 0.0-0.7 [facility] Comment on above: Performed By: #### C BC ####[facility] Vfoaacigne9901 [place] [address]Dr. Garima Pulliam Eosinophils/100 WBC (Bld) 2.1 % Normal 0.9-7.0 [facility] Comment on above: Performed By: #### C BC ####[facility] Llggcialbx[address] [place], [place] [address]Dr. Garima Pulliam Erythrocyte distribution width (RBC) [Ratio] 13.2 % Normal 11.0-15.0 [facility] Comment on above: Performed By: #### C BC ####[facility] Znlmsvqfwd7[address] [place], [place] [address]Dr. Garima Pulliam Hematocrit (Bld) [Volume fraction] 43.4 % Normal 42.0-54.0 [facility] Comment on above: Performed By: #### C BC ####[facility] Xsooxnfhfy[address] [place], [place] [address]Dr. Garima Pulliam Hemoglobin (Bld) [Mass/Vol] 14.6 g/dL Normal 14.0-18.0 [facility] Comment on above: Performed By: #### C BC ####[facility] Smzglstdjc7003 [place] [address]Dr. Garima Pulliam IG # 0.02 10e3/ul Normal 0.00-0.03 [facility] Comment on above: Performed By: #### C BC ####[facility] Eemqwsiini2998 [place] [address]Dr. Garima Pulliam IG % 0.2 % Normal 0.0-0.5 [facility] Comment on above: Performed By: #### C BC ####[facility] Aimoatwstv5647 [place] [address]Dr. Garima Heraclio LYMPH # 2.1 103/ul Normal 1.2-3.8 [facility] Comment on above: Performed By: #### C BC ####[facility] Rqjvalrlgm4776 [place] [address]Dr. Garima Heraclio Lymphocytes/100 WBC (Bld) 19.2 % Critically low 20.5-60.0 [facility] Comment on above: Performed By: #### C BC ####[facility] Hxpzatkzzb[address] [place] [address]Dr. Chapisrenu Pulliam MANUAL DIFF REQ NO Normal [facility] Comment on above: Performed By: #### C BC ####[facility] Xgloxdopsu5622 [place] [address]Dr. Garima Heraclio MCH (RBC) [Entitic mass] 30.4 pg Normal 25.9-34.0 [facility] Comment on above: Performed By: #### C BC ####[facility] Shvppmklhc9200 [place] [address]Dr. Garima Pulliam MCHC (RBC) [Mass/Vol] 33.6 g/dL Normal 29.9-35.2 [facility] Comment on above: Performed By: #### C BC ####[facility] Obcvrcelpm8896 [place] [address]Dr. Garima Heraclio MCV (RBC) [Entitic vol] 90.4 fL Normal 80.0-94.0 [facility] Comment on above: Performed By: #### C BC ####[facility] Crldeitqlw7249 [place] [address]Dr. Garima Heraclio MONO # 0.6 103/ul Normal 0.3-0.8 [facility] Comment on above: Performed By: #### C BC ####[facility] Vqwttezjdk9563 [place] [address]Dr. Garima Heraclio Monocytes/100 WBC (Bld) 5.8 % Normal 1.7-12.0 [facility] Comment on above: Performed By: #### C BC ####[facility] Jtnvamlqik7270 [place], [place] [address]Bh. Garima Pulliam NEUT # 7.8 103/ul Critically high 1.4-6.5 [facility] Comment on above: Performed By: #### C BC ####[facility] Tprhwoyugb1442 [place] [address]Dr. Garima Pulliam Neutrophils/100 WBC (Bld) 72.4 % Normal 43.0-75.0 [facility] Comment on above: Performed By: #### C BC ####[facility] Cpcvdmlpmf9899 [place] [address]Dr. Garima Pulliam Platelet mean volume (Bld) [Entitic vol] 8.7 fL Critically low 9.5-13.5 [facility] Comment on above: Performed By: #### C BC ####[facility] Iyuzywxwvj5108 [place] [address]Dr. Garima Pulliam PLT 184 103/ul Normal 150-450 [facility] Comment on above: Performed By: #### C BC ####[facility] Yxmdgqnwfm4801 [place], [place] [address]Qw. Garima Pulliam RBC 4.80 106/ul Normal 4.70-6.10 [facility] Comment on above: Performed By: #### C BC ####[facility] Fgzxsmgfqb5118 [place] [address]Dr. Garima Pulliam WBC 10.8 103/ul Normal 4.0-11.0 [facility] Comment on above: Performed By: #### C BC ####[facility] Cyhqdkyitl9406 [place] [phone]. Garima Pulliam [facility]24 SARS-CoV-2 (COVID-19) RNA MARIE+probe Ql (Unsp spec) Not detected Normal NOT DETECTED [facility] Comment on above: Result Comment: When [...] for this test is supported by the [employer] App[employer]ice of Health and Human Service's declaration that [...] be used). Performed By: #### C VDTBH ####[facility] Zonelzmoxz[address] [place], [place] [address]Dr. Garima Pulliam INFLUENZA A AND B AGon 11-[facility] BELOW Normal [facility] Comment on above: Result Comment: Nega tive for Flu A protein angiten. Infection due to Flu A cannot be ruled out. Flu A angiten in the sample may be below the detection limit of the test. Performed By: #### I NFLUAB ####[facility] Xegqnxfuxl[address] [place], [place] [address]Dr. Garima Pulliam INFLUBNEGH SEE BELOW Normal [facility] Comment on above: Result Comment: Nega tive for Flu B protein antigen. Infection due to Flu B cannot be ruled out. Flu B antigen in the sample may be below the detection limit of the test. Performed By: #### I NFLUAB ####[facility] Utcpdpfnnc[address] [place], [place] [address]Dr. Garima Pulliam INFLUENZA A AG Negative Normal NEGATIVE SEE COMMENT [facility] Comment on above: Performed By: #### I NFLUAB ####[facility] L[address]jldsssjq[address] [place], [place] [address]Dr. Garima [facility] INFLUENZA B AG Negative Normal NEGATIVE SEE COMMENT [facility] Comment on above: Performed By: #### I NFLUAB ####[facility] Ecwpkblmqy215[address] [place], [place] [address]Dr. Garima Pulliam PROF CHEM 8 (BAS METB)on Anion gap [Moles/Vol] 8.2 mmol/L Normal [facility] Comment on above: Performed By: #### B MP, HSTROPN, BNP ####[facility] Otzepqooln2325 [place] [address]Dr. Garima Pulliam Calcium [Mass/Vol] 8.7 mg/dL Normal 8.5-10.1 [facility] Comment on above: Performed By: #### B MP, HSTROPN, BNP ####[facility] Pwzeefyrzi5158 [place] [address]Dr. Garima Pulliam Chloride [Moles/Vol] 103 mmol/L Normal 98-107 [facility] Comment on above: Performed By: #### B MP, HSTROPN, BNP ####[facility] Rmxjastlfh[address] [place], [place] [address]Dr. Garima Pulliam CO2 [Moles/Vol] 29.4 mmol/L Normal 21.0-32.0 [facility] Comment on above: Performed By: #### B MP, HSTROPN, BNP ####[facility] Jhhwckinsy[address] [place], [place] [address]Dr. Garima Pulliam Creatinine [Mass/Vol] 0.69 mg/dL Critically low 0.70-1.30 [facility] Comment on above: Performed By: #### B MP, HSTROPN, BNP ####[facility] Ncofowafzv0520 [place] [address]Dr. Garima Pulliam EGFR-AF BAHRAINI >60 Normal >=60 [facility] Comment on above: Performed By: #### B MP, HSTROPN, BNP ####[facility] Spperewzux[address] [place], [place] [address]Dr. Garima Pulliam EGFR-NON AF BAHRAINI >60 Normal >=60 [facility] Comment on above: Performed By: #### B MP, HSTROPN, BNP ####[facility] Ejzdjxcibm8156 [place] [address]Dr. Garima Pulliam Glucose [Mass/Vol] 209 mg/dL Critically high 74-106 [facility] Comment on above: Performed By: #### B MP, HSTROPN, BNP ####[facility] Abqpciiyim7210 [place] [address]Dr. Garima Pulilam Potassium [Moles/Vol] 3.6 mmol/L Normal 3.5-5.1 [facility] Comment on above: Performed By: #### B MP, HSTROPN, BNP ####[facility] Kjrargcypc2985 [place] [address]Dr. Garima Pulliam Sodium [Moles/Vol] 137 mmol/L Normal 136-145 [facility] Comment on above: Performed By: #### B MP, HSTROPN, BNP ####[facility] Pdxkbbjedg3281 [place] [address]Dr. Garima Pulliam Urea nitrogen [Mass/Vol] 11.0 mg/dL Normal 7.0-18.0 [facility] Comment on above: Performed By: #### B MP, HSTROPN, BNP ####[facility] Kbtymjfemo5902 [place] [address]Dr. Garima Pulliam Urea nitrogen/Creatinine [Mass ratio] 15.9 mg/mg Normal [facility] Comment on above: Performed By: #### B MP, HSTROPN, BNP ####[facility] Smgxhawozg7466 [place] [address]Dr. Garima Pulliam TROPONIN, HIGH SENSITIVITYon 11-20-2022 HSTROP 8.7 pg/mL Normal 4.0-76.1 [facility] Comment on above: Result Comment: CUT- OFF POINTS HAVE BEEN ESTABLISHED BASED ON THE FOURTH UNIVERSAL DEFINITIONS OF MYOCARDIALINFARCTION. THE UPPER REFERENCE LIMIT (URL) OF TROPONIN, DEFINED THE 99TH PERCENTILE OFcTnI DISTRIBUTION IN A REFERENCE POPULATION, HAS BEEN CONFIRMED THE DECISION THRESHOLDFOR ND DIAGNOSIS. Performed By: #### B MP, HSTROPN, BNP ####[facility] Gwugkdvuav59[address] [place] [address]Dr. Garima Pulliam XR CHEST 1 Von 11-20-2022 XR CHEST 1 V Normal [facility] XR CHEST 1 Von 10-02-2022 XR CHEST 1 V Normal [facility] BNPon 09-29-2022 Natriuretic peptide B (Bld) [Mass/Vol] 107.0 pg/mL Normal <=900.0 [facility] Comment on above: Performed By: #### C MP, BNP, CMADM ####[facility] Zahrjynpcz0408 [place] [address]Dr. Garima Pulliam CARDIAC NASH ADMITon 022 CK [Catalytic activity/Vol] 190 U/L Normal 39-308 [facility] Comment on above: Performed By: #### C MP, BNP, CMADM ####[facility] [address]xtqedr16[address] [place] [address]Dr. Garima Heraclio CK.MB [Mass/Vol] 11.11 ng/mL Critically high <=3.60 Th [facility] Comment on above: Performed By: #### C MP, BNP, CMADM ####[facility] [address]rlhewn87[address] [place] [address]Dr. Garima Pulliam HSTROP 11.8 pg/mL Normal 4.0-76.1 [facility] Comment on above: Result Comment: CUT- OFF POINTS HAVE BEEN ESTABLISHED BASED ON THE FOURTH UNIVERSAL DEFINITIONS OF MYOCARDIALINFARCTION. THE UPPER REFERENCE LIMIT (URL) OF TROPONIN, DEFINED THE 99TH PERCENTILE OFcTnI DISTRIBUTION IN A REFERENCE POPULATION, HAS BEEN CONFIRMED THE DECISION THRESHOLDFOR ND DIAGNOSIS. Performed By: #### C MP, BNP, CMADM ####[facility] Qvmwhxlqdy76[address] [place] [address]Dr. Garima Pulliam DORIS 133 ng/mL Critically high 16-96 [facility] Comment on above: Performed By: #### C MP, BNP, CMADM ####[facility] Mnhdjbnecc5[address] [place] [address]Dr. Garima Heraclio CBC AUTO DIFFon 09-29-2022 BASO # 0.0 103/ul Normal 0.0-0.1 [facility] Comment on above: Performed By: #### C BC ####[facility] Ifpgizpqmx9930 [place] [address]Dr. Garima Heraclio Basophils/100 WBC (Bld) 0.2 % Normal 0.2-2.0 [facility] Comment on above: Performed By: #### C BC ####[facility] Qjwejqwpka8619 [place] [id number]. Garima Pulliam EO # 0.1 103/ul Normal 0.0-0.7 [facility] Comment on above: Performed By: #### C BC ####[facility] Igxfpywpbv0054 [place] [id number]. Garima Pulliam Eosinophils/100 WBC (Bld) 1.4 % Normal 0.9-7.0 [facility] Comment on above: Performed By: #### C BC ####[facility] Ljprwkuvab[address] [place], [place] [address]Dr. Garima Pulliam Erythrocyte distribution width (RBC) [Ratio] 13.7 % Normal 11.0-15.0 [facility] Comment on above: Performed By: #### C BC ####[facility] Tqfhdkksjr[address] [place], [place] [address]Dr. Garima Pulliam Hematocrit (Bld) [Volume fraction] 45.4 % Normal 42.0-54.0 [facility] Comment on above: Performed By: #### C BC ####[facility] Jqbxcqkbpj[address] [place], [place] [address]Dr. Garima Pulliam Hemoglobin (Bld) [Mass/Vol] 14.8 g/dL Normal 14.0-18.0 [facility] Comment on above: Performed By: #### C BC ####[facility] Jdctqjcpmz[address] [place], [place] [address]Dr. Garima Pulliam IG # 0.04 10e3/ul Critically high 0.00-0.03 [facility] Comment on above: Performed By: #### C BC ####[facility] Nkokdsnbdc[address] [place], [place] [address]Dr. Garima Pulliam IG % 0.5 % Normal 0.0-0.5 [facility] Comment on above: Performed By: #### C BC ####[facility] Mjvmtuusue[address] [place], [place] [address]Dr. Garima Pulliam LYMPH # 1.1 103/ul Critically low 1.2-3.8 [facility] Comment on above: Performed By: #### C BC ####[facility] Wrhipnrqts7[address] [place] [id number]. Garima Pulliam Lymphocytes/100 WBC (Bld) 12.7 % Critically low 20.5-60.0 [facility] Comment on above: Performed By: #### C BC ####[facility] Mozhjjtfkj6036 [place] [id number]. Chapisrenu Pulliam MANUAL DIFF REQ NO Normal [facility] Comment on above: Performed By: #### C BC ####[facility] Utyncmkhqo[address] [place], [place] [id number]. Garima Heraclio MCH (RBC) [Entitic mass] 30.0 pg Normal 25.9-34.0 [facility] Comment on above: Performed By: #### C BC ####[facility] Yadckxtxdq693[address] [place], [place] [address]Dr. Garima Heraclio MCHC (RBC) [Mass/Vol] 32.6 g/dL Normal 29.9-35.2 [facility] Comment on above: Performed By: #### C BC ####[facility] N[address]cszch[address] [place], [place] [id number]. Garima Heraclio MCV (RBC) [Entitic vol] 91.9 fL Normal 80.0-94.0 [facility] Comment on above: Performed By: #### C BC ####[facility] Kejeudysku[address] [place], [place] [address]Dr. Garima Pulliam MONO # 0.4 103/ul Normal 0.3-0.8 [facility] Comment on above: Performed By: #### C BC ####[facility] Fitqbntasg14[address] [place], [place] [address]Dr. Chapisrenu Pulliam Monocytes/100 WBC (Bld) 4.8 % Normal 1.7-12.0 [facility] Comment on above: Performed By: #### C BC ####[facility] Lxnoxjcqqc4[address] [place], [place] [address]Dr. Garima Pulliam NEUT # 7.1 103/ul Critically high 1.4-6.5 [facility] Comment on above: Performed By: #### C BC ####[facility] Jceijmvihy5013 [place], [place] [address]Bi. Garima Pulliam Neutrophils/100 WBC (Bld) 80.4 % Critically high 43.0-75.0 [facility] Comment on above: Performed By: #### C BC ####[facility] Jxbtweuxzo6203 [place] [phone]. Garima Pulliam Platelet mean volume (Bld) [Entitic vol] 9.1 fL Critically low 9.5-13.5 [facility] Comment on above: Performed By: #### C BC ####[facility] Dojusecckr8062 [place] [phone]. Garima Pulliam PLT 200 103/ul Normal 150-450 [facility] Comment on above: Performed By: #### C BC ####[facility] Ydcnouzqtz7046 [place] [phone]. Garima Pulliam RBC 4.94 106/ul Normal 4.70-6.10 [facility] Comment on above: Performed By: #### C BC ####[facility] Qmysvyuzpm4205 [place] [phone]. Garima Pulliam WBC 8.9 103/ul Normal 4.0-11.0 [facility] Comment on above: Performed By: #### C BC ####[facility] X[address]ejlfazd[address] [place] [phone]. Garima Pulliam Covid-19 PCR (CVDTB)on SARS-CoV-2 (COVID-19) RNA MARIE+probe Ql (Unsp spec) Not detected Normal NOT DETECTED [facility] Comment on above: Result Comment: When [...] for this test is supported by the [employer] App[employer]ice of Health and Human Service's declaration that [...] be used). Performed By: #### C VDTBH ####[facility] Fcpderjcuj[address] [place] [address]Dr. Garima Pulliam LACTATE/LACTIC ACIDon 2021 Lactate [Moles/Vol] 1.7 mmol/L Normal 0.4-1.9 [facility] Comment on above: Performed By: #### L ACT ####[facility] Uvjrfukjen7[address] [place], [place] [address]Dr. Garima Pulliam PROF 14(COMP METB)on 022 Albumin [Mass/Vol] 3.8 g/dL Normal 3.4-5.0 [facility] Comment on above: Performed By: #### C MP, BNP, CMADM ####[facility] Kfhbzqmqmi222[address] [place], [place] [address]Dr. Garima Pulliam Albumin/Globulin [Mass ratio] 1.5 {ratio} Normal [facility] Comment on above: Performed By: #### C MP, BNP, CMADM ####[facility] Iaowjjwjpj0162 [place] [address]Dr. Garima Pulliam ALP [Catalytic activity/Vol] 62 U/L Normal 46-116 [facility] Comment on above: Performed By: #### C MP, BNP, CMADM ####[facility] Uifeitecnc9315 [place] [address]Dr. Garima Pulliam ALT [Catalytic activity/Vol] 37 U/L Normal 16-63 [facility] Comment on above: Performed By: #### C MP, BNP, CMADM ####[facility] Qiscqbexvy1694 [place] [address]Dr. Garima Pulliam Anion gap [Moles/Vol] 8.0 mmol/L Normal [facility] Comment on above: Performed By: #### C MP, BNP, CMADM ####[facility] Lszgaouaab7199 [place] [address]Dr. Garima Pulliam AST [Catalytic activity/Vol] 20 U/L Normal 15-37 [facility] Comment on above: Performed By: #### C MP, BNP, CMADM ####[facility] Gdjhiuzqtz2310 [place] [address]Dr. Garima Pulliam Bilirubin [Mass/Vol] 0.6 mg/dL Normal 0.2-1.0 [facility] Comment on above: Performed By: #### C MP, BNP, CMADM ####[facility] Yfjxjdnyco5059 [place] [address]Dr. Garima Pulliam Calcium [Mass/Vol] 9.1 mg/dL Normal 8.5-10.1 [facility] Comment on above: Performed By: #### C MP, BNP, CMADM ####[facility] Culcpkcvkq[address] [place], [place] [address]Dr. Garima Pulliam Chloride [Moles/Vol] 103 mmol/L Normal 98-107 [facility] Comment on above: Performed By: #### C MP, BNP, CMADM ####[facility] Omhbnxdssl02[address] [place], [place] [address]Dr. Garima Pulliam CO2 [Moles/Vol] 31.8 mmol/L Normal 21.0-32.0 The [facility] Comment on above: Performed By: #### C MP, BNP, CMADM ####[facility] Pndlwefida[address] [place], [place] [address]Dr. Garima Pulliam Creatinine [Mass/Vol] 0.63 mg/dL Critically low 0.70-1.30 [facility] Comment on above: Performed By: #### C MP, BNP, CMADM ####[facility] Idlsqwpbdh327[address] [place], [place] [address]Dr. Garima Pulliam EGFR-AF BAHRAINI >60 Normal >=60 The [facility] Comment on above: Performed By: #### C MP, BNP, CMADM ####[facility] Slbbeoiakd220[address] [place], [place] [address]Dr. Garima Pulliam EGFR-NON AF BAHRAINI >60 Normal >=60 [facility] Comment on above: Performed By: #### C MP, BNP, CMADM ####[facility] Szcycketlm6500 [place] [address]Dr. Garima Pulliam Globulin (S) [Mass/Vol] 2.6 g/dL Normal [facility] Comment on above: Performed By: #### C MP, BNP, CMADM ####[facility] Patorvujyb9253 [place] [address]Dr. Garima Pulliam Glucose [Mass/Vol] 103 mg/dL Normal 74-106 The [facility] Comment on above: Performed By: #### C MP, BNP, CMADM ####[facility] Zjpfnkrwkr5527 [place] [address]Dr. Garima Pulliam Potassium [Moles/Vol] 3.8 mmol/L Normal 3.5-5.1 [facility] Comment on above: Performed By: #### C MP, BNP, CMADM ####[facility] Yqigvbvdcg5150 [place] [address]Dr. Garima Pulliam Protein [Mass/Vol] 6.4 g/dL Normal 6.4-8.2 [facility] Comment on above: Performed By: #### C MP, BNP, CMADM ####[facility] Ovttcbqvoh9278 [place] [address]Dr. Garima Pulliam Sodium [Moles/Vol] 139 mmol/L Normal 136-145 The [facility] Comment on above: Performed By: #### C MP, BNP, CMADM ####[facility] Wmzjmytpff8481 [place] [address]Dr. Garima Pulliam Urea nitrogen [Mass/Vol] 7.0 mg/dL Normal 7.0-18.0 [facility] Comment on above: Performed By: #### C MP, BNP, CMADM ####[facility] Hjlvqvyldc5064 [place] [address]Dr. Garima Pulliam Urea nitrogen/Creatinine [Mass ratio] 11.1 mg/mg Normal [facility] Comment on above: Performed By: #### C MP, BNP, CMADM ####[facility] Cxdcsbtfbh8685 [place] [address]Dr. Garima Pulliam PROTIMEon 09-29-2022 INR Coag (PPP) [Relative time] 1.14 {INR} Normal [facility] Comment on above: Performed By: #### P T, PTT ####[facility] P[address]zjssskmh[address] [place], [place] [address]Dr. Garima Pulliam INR GUIDELINES SEE BELOW Normal [facility] Comment on above: Result Comment: WESLEY RED INR: 2.0 - 3.0 CONDITIONS NOT LISTED BELOW 2.5 - 3.5 FOR PROSTHETIC HEART VALVE REPLACEMENT 2.5 - 3.5 RECURRENT THROMBOSIS Performed By: #### P T, PTT ####[facility] Y[address]pcwzkgh[address] [place], [place] [address]Dr. Garima Pulliam PT Coag (PPP) [Time] 12.2 s Critically high 9.0-11.6 [facility] Comment on above: Performed By: #### P T, PTT ####[facility] Ykgzieeqmm616[address] [place], [place] [address]Dr. Garima Pulliam PTTon 09-29-2022 aPTT Coag (Bld) [Time] 29.3 s Normal 22.3-36.2 [facility] Comment on above: Performed By: #### P T, PTT ####[facility] Hszqzhfmsz[address] [place], [place] [address]Dr. Garima Pulliam XR CHEST 1 Von 09-29-2022 XR CHEST 1 V Normal [facility] CBC AUTO DIFFon 09-26-2022 BASO # 0.0 103/ul Normal 0.0-0.1 [facility] Comment on above: Performed By: #### C BC ####[facility] Kgjpbrzdkt408[address] [place], [place] [address]Dr. Garima Pulliam Basophils/100 WBC (Bld) 0.2 % Normal 0.2-2.0 [facility] Comment on above: Performed By: #### C BC ####[facility] Hrkjyalcsi254[address] [place], [place] [address]Dr. Garima Pulliam EO # 0.1 103/ul Normal 0.0-0.7 [facility] Comment on above: Performed By: #### C BC ####[facility] Ufwpmhureo15[address] [place], [place] [address]Dr. Garima Pulliam Eosinophils/100 WBC (Bld) 1.0 % Normal 0.9-7.0 [facility] Comment on above: Performed By: #### C BC ####[facility] Qidmircufn86[address] [place], [place] [address]Dr. Garima Pulliam Erythrocyte distribution width (RBC) [Ratio] 13.4 % Normal 11.0-15.0 [facility] Comment on above: Performed By: #### C BC ####[facility] Xgzkwepjbk395[address] [place], [place] [address]Dr. Garima Pulliam Hematocrit (Bld) [Volume fraction] 46.3 % Normal 42.0-54.0 [facility] Comment on above: Performed By: #### C BC ####[facility] Nzexhdqyph36[address] [place], [place] [address]Dr. Garima Pulliam Hemoglobin (Bld) [Mass/Vol] 15.3 g/dL Normal 14.0-18.0 [facility] Comment on above: Performed By: #### C BC ####[facility] Vxeyfdvkyr[address] [place], [place] [address]Dr. Garima Pulliam IG # 0.05 10e3/ul Critically high 0.00-0.03 [facility] Comment on above: Performed By: #### C BC ####[facility] Pydggihotc[address] [place], [place] [address]Dr. Garima Pulliam IG % 0.4 % Normal 0.0-0.5 [facility] Comment on above: Performed By: #### C BC ####[facility] Fmoeshghyy54[address] [place], [place] [address]Dr. Garima Pulliam LYMPH # 1.7 103/ul Normal 1.2-3.8 [facility] Comment on above: Performed By: #### C BC ####[facility] Sixrvllvlj128[address] [place], [place] [address]Dr. Garima Pulliam Lymphocytes/100 WBC (Bld) 12.7 % Critically low 20.5-60.0 [facility] Comment on above: Performed By: #### C BC ####[facility] Eyvkfhsuzk8653 [place] [address]DrAdalberto Pulliam MANUAL DIFF REQ NO Normal [facility] Comment on above: Performed By: #### C BC ####[facility] Lppzgoaovc8602 [place] [address]Dr. Garima Pulliam MCH (RBC) [Entitic mass] 30.1 pg Normal 25.9-34.0 [facility] Comment on above: Performed By: #### C BC ####[facility] Imhlktglpn118[address] [place], [place] [address]Dr. Garima Pulliam MCHC (RBC) [Mass/Vol] 33.0 g/dL Normal 29.9-35.2 [facility] Comment on above: Performed By: #### C BC ####[facility] Migzgisvzn[address] [place], [place] [address]DrAdalberto Pulliam MCV (RBC) [Entitic vol] 91.1 fL Normal 80.0-94.0 [facility] Comment on above: Performed By: #### C BC ####[facility] Popflnnyng[address] [place], [place] [address]DrAdalberto Pulliam MONO # 0.9 103/ul Critically high 0.3-0.8 [facility] Comment on above: Performed By: #### C BC ####[facility] Axxydwtovh[address] [place], [place] [address]DrAdalberto Pulliam Monocytes/100 WBC (Bld) 7.0 % Normal 1.7-12.0 [facility] Comment on above: Performed By: #### C BC ####[facility] Pegivvzxrx358[address] [place], [place] [address]DrAdalberto Pulliam NEUT # 10.4 103/ul Critically high 1.4-6.5 The [facility] Comment on above: Performed By: #### C BC ####[facility] Zrtxlwhnbf07[address] [place], [place] [address]DrAdalberto Pulliam Neutrophils/100 WBC (Bld) 78.7 % Critically high 43.0-75.0 [facility] Comment on above: Performed By: #### C BC ####[facility] Ttogzaagww0474 [place] [address]Dr. Garima Pulliam Platelet mean volume (Bld) [Entitic vol] 8.9 fL Critically low 9.5-13.5 [facility] Comment on above: Performed By: #### C BC ####[facility] Xxdwwlxsmv8277 [place] [address]Dr. Garima Pulliam PLT 195 103/ul Normal 150-450 [facility] Comment on above: Performed By: #### C BC ####[facility] Ezgcwxtyif794[address] [place], [place] [address]Dr. Garima Pulliam RBC 5.08 106/ul Normal 4.70-6.10 [facility] Comment on above: Performed By: #### C BC ####[facility] Gwwktwfqvk[address] [place], [place] [address]Dr. Garima Pulliam WBC 13.2 103/ul Critically high 4.0-11.0 The [facility] Comment on above: Performed By: #### C BC ####[facility] Oeiuryfopt[address] [place], [place] [address]Dr. Garima Pulliam PROF 14(COMP METB)on 022 Albumin [Mass/Vol] 3.5 g/dL Normal 3.4-5.0 [facility] Comment on above: Performed By: #### C DAVID HSTROPN ####[facility] Tlupjsqpom2589 [place] [address]Dr. Garima Pulliam Albumin/Globulin [Mass ratio] 1.2 {ratio} Normal [facility] Comment on above: Performed By: #### C RAFAT HERNANDEZTROPN ####[facility] Omswkykzms3872 [place] [address]Dr. Garima Pulliam ALP [Catalytic activity/Vol] 71 U/L Normal 46-116 [facility] Comment on above: Performed By: #### C DAVID HSTROPN ####[facility] Jqbwtowtdu3527 [place] [address]Dr. Garima Pulliam ALT [Catalytic activity/Vol] 37 U/L Normal 16-63 [facility] Comment on above: Performed By: #### C DAVID, HSTROPN ####[facility] Lxrruxqbrx8814 [place] [address]Dr. Garima Pulliam Anion gap [Moles/Vol] 4.8 mmol/L Normal [facility] Comment on above: Performed By: #### C DAVID, HSTROPN ####[facility] Hcyzxqnutp357[address] [place], [place] [address]Dr. Garima Pulliam AST [Catalytic activity/Vol] 21 U/L Normal 15-37 [facility] Comment on above: Performed By: #### C DAVID, HSTROPN ####[facility] Usxhwzaumx232[address] [place], [place] [address]Dr. Garima Pulliam Bilirubin [Mass/Vol] 0.3 mg/dL Normal 0.2-1.0 [facility] Comment on above: Performed By: #### C DAVID, HSTROPN ####[facility] Mjzwsswrxs6828 [place] [address]Dr. Garima Pulliam Calcium [Mass/Vol] 8.9 mg/dL Normal 8.5-10.1 [facility] Comment on above: Performed By: #### C DAVID, HSTROPN ####[facility] Jjqlobqvkl2796 [place] [address]Dr. Garima Pulliam Chloride [Moles/Vol] 106 mmol/L Normal 98-107 [facility] Comment on above: Performed By: #### C DAVID, HSTROPN ####[facility] Iqxdxnqsgv0968 [place] [address]Dr. Garima Pulliam CO2 [Moles/Vol] 29.8 mmol/L Normal 21.0-32.0 The [facility] Comment on above: Performed By: #### C DAVID, HSTROPN ####[facility] Uxybhxqpzz3139 [place] [address]Dr. Garima Pulliam Creatinine [Mass/Vol] 0.68 mg/dL Critically low 0.70-1.30 [facility] Comment on above: Performed By: #### C MP, HSTROPN ####[facility] Bah[address]mldwx7[address] [place] [address]Dr. Garima Pulliam EGFR-AF BAHRAINI >60 Normal >=60 [facility] Comment on above: Performed By: #### C MP, HSTROPN ####[facility] Lexpjsjbgh0907 [place] [address]Dr. Chapislan Pulliam EGFR-NON AF BAHRAINI >60 Normal >=60 [facility] Comment on above: Performed By: #### C MP, HSTROPN ####[facility] Ntvbayrfvf2841 [place] [address]Dr. Garima Pulliam Globulin (S) [Mass/Vol] 2.8 g/dL Normal [facility] Comment on above: Performed By: #### C MP, HSTROPN ####[facility] Mrdwbsrmgh3731 [place] [address]Dr. Garima Pulliam Glucose [Mass/Vol] 133 mg/dL Critically high 74-106 [facility] Comment on above: Performed By: #### C MP, HSTROPN ####[facility] Cofarvzzmy1502 [place] [address]Dr. Chapisrenu Pulliam Potassium [Moles/Vol] 3.6 mmol/L Normal 3.5-5.1 [facility] Comment on above: Performed By: #### C MP, HSTROPN ####[facility] Mkckuqspgk4927 [place] [address]Dr. Chapisrenu Pulliam Protein [Mass/Vol] 6.3 g/dL Critically low 6.4-8.2 [facility] Comment on above: Performed By: #### C MP, HSTROPN ####[facility] Z[address]oufscki[address] [place], [place] [address]Dr. Chapisrenu Pulliam Sodium [Moles/Vol] 137 mmol/L Normal 136-145 [facility] Comment on above: Performed By: #### C MP, HSTROPN ####[facility] Cqvrgqyixf[address] [place], [place] [address]Dr. Garima Pulliam Urea nitrogen [Mass/Vol] 15.0 mg/dL Normal 7.0-18.0 [facility] Comment on above: Performed By: #### C DAVID HSTROPN ####[facility] Luuzqxmaci9718 [place] [address]Dr. Chapisrenu Pulliam Urea nitrogen/Creatinine [Mass ratio] 22.1 mg/mg Normal [facility] Comment on above: Performed By: #### C DAVID HSTROPN ####[facility] Hmfntaxttw3965 [place] [address]Dr. Garima Heraclio TROPONIN, HIGH SENSITIVITYon 09-26-2022 HSTROP 12.8 pg/mL Normal 4.0-76.1 [facility] Comment on above: Result Comment: CUT- OFF POINTS HAVE BEEN ESTABLISHED BASED ON THE FOURTH UNIVERSAL DEFINITIONS OF MYOCARDIALINFARCTION. THE UPPER REFERENCE LIMIT (URL) OF TROPONIN, DEFINED THE 99TH PERCENTILE OFcTnI DISTRIBUTION IN A REFERENCE POPULATION, HAS BEEN CONFIRMED THE DECISION THRESHOLDFOR ND DIAGNOSIS. Performed By: #### C DAVID HSTROPN ####[facility] Iwdoiwamem9928 [place] [address]Dr. Chapisrenu Pulliam XR CHEST 1 Von 09-26-2022 XR CHEST 1 V Normal [facility] XR CHEST 1 Von 09-16-2022 XR CHEST 1 V Normal [facility] CBC AUTO DIFFon 09-15-2022 BASO # 0.0 103/ul Normal 0.0-0.1 [facility] Comment on above: Performed By: #### C BC ####[facility] Dezskdacqw[address] [place] [address]Dr. Garima Heraclio Basophils/100 WBC (Bld) 0.1 % Critically low 0.2-2.0 [facility] Comment on above: Performed By: #### C BC ####[facility] Vdffgubsws7606 [place] [address]Dr. Garima Pulliam EO # 0.0 103/ul Normal 0.0-0.7 [facility] Comment on above: Performed By: #### C BC ####[facility] Xmaslfbfrw4408 [place] [address]Dr. Garima Pulliam Eosinophils/100 WBC (Bld) 0.1 % Critically low 0.9-7.0 [facility] Comment on above: Performed By: #### C BC ####[facility] Wfmbfpetji2153 [place] [address]Dr. Garima Pulliam Erythrocyte distribution width (RBC) [Ratio] 14.1 % Normal 11.0-15.0 [facility] Comment on above: Performed By: #### C BC ####[facility] I[address]rttncea[address] [place], [place] [address]Dr. Garima Pulliam Hematocrit (Bld) [Volume fraction] 46.1 % Normal 42.0-54.0 [facility] Comment on above: Performed By: #### C BC ####[facility] Dpyffjksvl007[address] [place], [place] [address]Dr. Garima Pulliam Hemoglobin (Bld) [Mass/Vol] 15.0 g/dL Normal 14.0-18.0 [facility] Comment on above: Performed By: #### C BC ####[facility] Soqwsptmyd[address] [place], [place] [address]Dr. Garima Pulliam IG # 0.03 10e3/ul Normal 0.00-0.03 [facility] Comment on above: Performed By: #### C BC ####[facility] Bowlqvrzms64[address] [place], [place] [address]Dr. Garima Pulliam IG % 0.3 % Normal 0.0-0.5 [facility] Comment on above: Performed By: #### C BC ####[facility] Pyegowfrfi[address] [place], [place] [address]Dr. Garima Pulliam LYMPH # 0.6 103/ul Critically low 1.2-3.8 [facility] Comment on above: Performed By: #### C BC ####[facility] Sqwufgynlk[address] [place], [place] [address]Dr. Garima Pulliam Lymphocytes/100 WBC (Bld) 5.8 % Critically low 20.5-60.0 [facility] Comment on above: Performed By: #### C BC ####[facility] Ifkymlxcqu7567 [place] [id number]. Garima Pulliam MANUAL DIFF REQ NO Normal [facility] Comment on above: Performed By: #### C BC ####[facility] Dpqernkzzs2620 [place] [id number]. Garima Pulliam MCH (RBC) [Entitic mass] 30.2 pg Normal 25.9-34.0 [facility] Comment on above: Performed By: #### C BC ####[facility] Bdmlzggcmt7415 [place] [address]Dr. Garima Pulliam MCHC (RBC) [Mass/Vol] 32.5 g/dL Normal 29.9-35.2 [facility] Comment on above: Performed By: #### C BC ####[facility] Qnanxeqpdo6554 [place] [address]Dr. Garima Pulliam MCV (RBC) [Entitic vol] 92.8 fL Normal 80.0-94.0 [facility] Comment on above: Performed By: #### C BC ####[facility] Ippykozfnt0520 [place] [address]Dr. Garima Heraclio MONO # 0.3 103/ul Normal 0.3-0.8 [facility] Comment on above: Performed By: #### C BC ####[facility] Wpdzkuiprl2052 [place] [id number]. Garima Heraclio Monocytes/100 WBC (Bld) 3.2 % Normal 1.7-12.0 [facility] Comment on above: Performed By: #### C BC ####[facility] [address] [place] [id number]. Garima Pulliam NEUT # 9.8 103/ul Critically high 1.4-6.5 [facility] Comment on above: Performed By: #### C BC ####[facility] Fudiwbhxkx8463 [place] [id number]. Garima Pulliam Neutrophils/100 WBC (Bld) 90.5 % Critically high 43.0-75.0 [facility] Comment on above: Performed By: #### C BC ####[facility] Yzrzqkwkch264[address] [place] [id number]. Garima Pulliam Platelet mean volume (Bld) [Entitic vol] 9.4 fL Critically low 9.5-13.5 [facility] Comment on above: Performed By: #### C BC ####[facility] Mayquyruiv26[address] [place] [id number]. Garima Pulliam PLT 208 103/ul Normal 150-450 [facility] Comment on above: Performed By: #### C BC ####[facility] Mladohjszz64[address] [place] [address]Dr. Garima Pulliam RBC 4.97 106/ul Normal 4.70-6.10 [facility] Comment on above: Performed By: #### C BC ####[facility] Aiizfkrmof03[address] [place] [address]Dr. Garima Pulliam WBC 10.8 103/ul Normal 4.0-11.0 [facility] Comment on above: Performed By: #### C BC ####[facility] Lgvaxmdcxj3156 [place] [address]Dr. Garima Pulliam PROF 14(COMP METB)on 022 Albumin [Mass/Vol] 4.0 g/dL Normal 3.4-5.0 [facility] Comment on above: Performed By: #### C MP ####[facility] Iglvinumcm45[address] [place] [address]Dr. Garima Pulliam Albumin/Globulin [Mass ratio] 1.5 {ratio} Normal [facility] Comment on above: Performed By: #### C MP ####[facility] Ttdldmiqza5551 [place] [address]Dr. Garima Pulliam ALP [Catalytic activity/Vol] 73 U/L Normal 46-116 [facility] Comment on above: Performed By: #### C MP ####[facility] Jadvkgntuk24[address] [place] [address]Dr. Garima Pulliam ALT [Catalytic activity/Vol] 42 U/L Normal 16-63 [facility] Comment on above: Performed By: #### C MP ####[facility] Qhhtburtbt6506 [place] [address]Dr. Garima Pulliam Anion gap [Moles/Vol] 9.1 mmol/L Normal [facility] Comment on above: Performed By: #### C MP ####[facility] Acxdhvhqwe[address] [place], [place] [address]Dr. Garima Pulliam AST [Catalytic activity/Vol] 28 U/L Normal 15-37 [facility] Comment on above: Performed By: #### C MP ####[facility] Wifgylrvia[address] [place], [place] [address]Dr. Garima Pulliam Bilirubin [Mass/Vol] 0.6 mg/dL Normal 0.2-1.0 [facility] Comment on above: Performed By: #### C MP ####[facility] Wukojdpxdu636[address] [place], [place] [address]Dr. Garima Pulliam Calcium [Mass/Vol] 8.6 mg/dL Normal 8.5-10.1 The [facility] Comment on above: Performed By: #### C MP ####[facility] Xthgmublpv645[address] [place], [place] [address]Dr. Garima Pulliam Chloride [Moles/Vol] 105 mmol/L Normal 98-107 [facility] Comment on above: Performed By: #### C MP ####[facility] Rwrsqtlnrg75[address] [place], [place] [address]Dr. Garima Pulliam CO2 [Moles/Vol] 28.5 mmol/L Normal 21.0-32.0 The [facility] Comment on above: Performed By: #### C MP ####[facility] Yfxjzydroa89[address] [place], [place] [address]Dr. Garima Heraclio Creatinine [Mass/Vol] 0.78 mg/dL Normal 0.70-1.30 [facility] Comment on above: Performed By: #### C MP ####[facility] Hshpvpkjaa454[address] [place], [place] [address]Dr. Chapisrenu Heraclio EGFR-AF BAHRAINI >60 Normal >=60 The [facility] Comment on above: Performed By: #### C MP ####[facility] Qcyldgitgs007[address] [place], [place] [address]Dr. Garima Pulliam EGFR-NON AF BAHRAINI >60 Normal >=60 [facility] Comment on above: Performed By: #### C MP ####[facility] Dspfgrvski8854 [place] [address]Dr. Garima Pulliam Globulin (S) [Mass/Vol] 2.7 g/dL Normal [facility] Comment on above: Performed By: #### C MP ####[facility] Ygayvayejw6493 [place] [address]Dr. Garima Pulliam Glucose [Mass/Vol] 220 mg/dL Critically high 74-106 T [facility] Comment on above: Performed By: #### C MP ####[facility] Xcrsdosgly9908 [place] [address]Dr. Garima Pulliam Potassium [Moles/Vol] 3.6 mmol/L Normal 3.5-5.1 [facility] Comment on above: Performed By: #### C MP ####[facility] Vxjxapzgbm93[address] [place], [place] [address]Dr. Garima Pulliam Protein [Mass/Vol] 6.7 g/dL Normal 6.4-8.2 [facility] Comment on above: Performed By: #### C MP ####[facility] Ajdhdobakk173[address] [place], [place] [address]Dr. Garima Pulliam Sodium [Moles/Vol] 139 mmol/L Normal 136-145 [facility] Comment on above: Performed By: #### C MP ####[facility] Yqidayaisj836[address] [place], [place] [address]Dr. Garima Pulliam Urea nitrogen [Mass/Vol] 11.0 mg/dL Normal 7.0-18.0 [facility] Comment on above: Performed By: #### C MP ####[facility] Udrohrrjvw466[address] [place], [place] [address]Dr. Garima Pulliam Urea nitrogen/Creatinine [Mass ratio] 14.1 mg/mg Normal [facility] Comment on above: Performed By: #### C MP ####[facility] Gksiotsglj538[address] [place], [place] [address]Dr. Garima Pulliam CARDIAC NASH 3-6on 2 CK [Catalytic activity/Vol] 240 U/L Normal 39-308 [facility] Comment on above: Performed By: #### C MREP ####[facility] Sfvmvgxmma2358 [place] [address]Dr. Garima Pulliam CK.MB [Mass/Vol] 10.38 ng/mL Critically high <=3.60 Th [facility] Comment on above: Performed By: #### C MREP ####[facility] Oqwqvrffwr1653 [place] [address]Dr. Garima Pulliam HSTROP 18.5 pg/mL Normal 4.0-76.1 [facility] Comment on above: Result Comment: CUT- OFF POINTS HAVE BEEN ESTABLISHED BASED ON THE FOURTH UNIVERSAL DEFINITIONS OF MYOCARDIALINFARCTION. THE UPPER REFERENCE LIMIT (URL) OF TROPONIN, DEFINED THE 99TH PERCENTILE OFcTnI DISTRIBUTION IN A REFERENCE POPULATION, HAS BEEN CONFIRMED THE DECISION THRESHOLDFOR ND DIAGNOSIS. Performed By: #### C MREP ####[facility] Hilbiqxwyc8[address] [place] [address]Dr. Garima Pulliam CK [Catalytic activity/Vol] 257 U/L Normal 39-308 [facility] Comment on above: Performed By: #### C MREP ####[facility] Dxptfqcpke[address] [place], [place] [address]Dr. Garima Pulliam CK.MB [Mass/Vol] 9.89 ng/mL Critically high <=3.60 [facility] Comment on above: Performed By: #### C MREP ####[facility] Yelvkwfbrg325[address] [place], [place] [address]Dr. Garima Pulliam HSTROP 16.9 pg/mL Normal 4.0-76.1 [facility] Comment on above: Result Comment: CUT- OFF POINTS HAVE BEEN ESTABLISHED BASED ON THE FOURTH UNIVERSAL DEFINITIONS OF MYOCARDIALINFARCTION. THE UPPER REFERENCE LIMIT (URL) OF TROPONIN, DEFINED THE 99TH PERCENTILE OFcTnI DISTRIBUTION IN A REFERENCE POPULATION, HAS BEEN CONFIRMED THE DECISION THRESHOLDFOR ND DIAGNOSIS. Performed By: #### C MREP ####[facility] Zbomurajve85[address] [place] [address]Dr. Garima Heraclio CBC AUTO DIFFon 10-22-2022 BASO # 0.0 103/ul Normal 0.0-0.1 [facility] Comment on above: Performed By: #### C BC ####[facility] Zwhjfcykpb2109 [place] [address]Dr. Garima Pulliam Basophils/100 WBC (Bld) 0.1 % Critically low 0.2-2.0 [facility] Comment on above: Performed By: #### C BC ####[facility] Kvhylrxmcj8835 [place] [address]Dr. Garima Pulliam EO # 0.0 103/ul Normal 0.0-0.7 [facility] Comment on above: Performed By: #### C BC ####[facility] Vhfsnwzxzw356[address] [place], [place] [address]Dr. Chapisrenu Heraclio Eosinophils/100 WBC (Bld) 0.0 % Critically low 0.9-7.0 [facility] Comment on above: Performed By: #### C BC ####[facility] Zcozaicsyo65[address] [place], [place] [address]Dr. Garima Pulliam Erythrocyte distribution width (RBC) [Ratio] 13.6 % Normal 11.0-15.0 [facility] Comment on above: Performed By: #### C BC ####[facility] Pjqkwhvgzi20[address] [place], [place] [address]Dr. Garima Pulliam Hematocrit (Bld) [Volume fraction] 48.2 % Normal 42.0-54.0 [facility] Comment on above: Performed By: #### C BC ####[facility] Yyckbgfcls7[address] [place], [place] [address]Dr. Garima Pulliam Hemoglobin (Bld) [Mass/Vol] 16.0 g/dL Normal 14.0-18.0 [facility] Comment on above: Performed By: #### C BC ####[facility] Qbawkqqazg22[address] [place], [place] [address]Dr. Chapisrenu Heraclio IG # 0.02 10e3/ul Normal 0.00-0.03 [facility] Comment on above: Performed By: #### C BC ####[facility] Bionanevjv[address] [place] [address]Dr. Garima Pulliam IG % 0.3 % Normal 0.0-0.5 [facility] Comment on above: Performed By: #### C BC ####[facility] Nwitnccrsb1935 [place] [address]Dr. Garima Heraclio LYMPH # 0.5 103/ul Critically low 1.2-3.8 The [facility] Comment on above: Performed By: #### C BC ####[facility] Qnahhpvbzx1494 [place] [address]Dr. Garima Heraclio Lymphocytes/100 WBC (Bld) 7.7 % Critically low 20.5-60.0 [facility] Comment on above: Performed By: #### C BC ####[facility] Naldglnkxc034[address] [place], [place] [address]Dr. Chapisrenu Pulliam MANUAL DIFF REQ NO Normal [facility] Comment on above: Performed By: #### C BC ####[facility] Xqbqjotdgh[address] [place], [place] [address]Dr. Garima Heraclio MCH (RBC) [Entitic mass] 30.6 pg Normal 25.9-34.0 [facility] Comment on above: Performed By: #### C BC ####[facility] Xeluswpjmj324[address] [place], [place] [address]Dr. Garima Pulliam MCHC (RBC) [Mass/Vol] 33.2 g/dL Normal 29.9-35.2 [facility] Comment on above: Performed By: #### C BC ####[facility] Yxgsjwhjha280[address] [place], [place] [address]Dr. Garima Heraclio MCV (RBC) [Entitic vol] 92.2 fL Normal 80.0-94.0 [facility] Comment on above: Performed By: #### C BC ####[facility] Ngfyddojvr119[address] [place], [place] [address]Dr. Garima Pulliam MONO # 0.0 103/ul Critically low 0.3-0.8 The [facility] Comment on above: Performed By: #### C BC ####[facility] Iasfinabdt4745 [place] [address]Dr. Garima Pulliam Monocytes/100 WBC (Bld) 0.4 % Critically low 1.7-12.0 [facility] Comment on above: Performed By: #### C BC ####[facility] Tqwumzdnoq0595 [place] [address]Dr. Garima Pulliam NEUT # 6.2 103/ul Normal 1.4-6.5 [facility] Comment on above: Performed By: #### C BC ####[facility] Vgxmymxyul1064 [place] [address]Dr. Garima Pulliam Neutrophils/100 WBC (Bld) 91.5 % Critically high 43.0-75.0 [facility] Comment on above: Performed By: #### C BC ####[facility] Pohqbhbisk2497 [place] [address]Dr. Garima Pulliam Platelet mean volume (Bld) [Entitic vol] 8.7 fL Critically low 9.5-13.5 [facility] Comment on above: Performed By: #### C BC ####[facility] Tbewrwvntk6454 [place] [address]Dr. Garima Pulliam PLT 179 103/ul Normal 150-450 [facility] Comment on above: Performed By: #### C BC ####[facility] Xeeymtckey1811 [place] [address]Dr. Garima Pulliam RBC 5.23 106/ul Normal 4.70-6.10 [facility] Comment on above: Performed By: #### C BC ####[facility] Axnqkkpmyw1093 [place] [address]Dr. Garima Pulliam WBC 6.7 103/ul Normal 4.0-11.0 [facility] Comment on above: Performed By: #### C BC ####[facility] Uctnzkbcia3542 [place] [address]Dr. Garima Pulliam PROF CHEM 8 (BAS METB)on Anion gap [Moles/Vol] 12.1 mmol/L Normal Th [facility] Comment on above: Performed By: #### B MP ####[facility] Gmzijiwnaj5823 [place] [address]Dr. Garima Pulliam Calcium [Mass/Vol] 8.7 mg/dL Normal 8.5-10.1 The [facility] Comment on above: Performed By: #### B MP ####[facility] Ecqwbxeyos7279 [place] [address]Dr. Garima Pulliam Chloride [Moles/Vol] 105 mmol/L Normal 98-107 [facility] Comment on above: Performed By: #### B MP ####[facility] Ftegvzmnux4617 [place] [address]Dr. Garima Pulliam CO2 [Moles/Vol] 25.5 mmol/L Normal 21.0-32.0 The [facility] Comment on above: Performed By: #### B MP ####[facility] Gcyeuwlvms3670 [place] [address]Dr. Garima Pulliam Creatinine [Mass/Vol] 0.63 mg/dL Critically low 0.70-1.30 [facility] Comment on above: Performed By: #### B MP ####[facility] Cgtvysxcnm5681 [place] [address]Dr. Garima Pulliam EGFR-AF BAHRAINI >60 Normal >=60 The [facility] Comment on above: Performed By: #### B MP ####[facility] Uixuljgzhw2712 [place] [address]Dr. Garima Pulliam EGFR-NON AF BAHRAINI >60 Normal >=60 [facility] Comment on above: Performed By: #### B MP ####[facility] Zyxutqyvfz9763 [place] [address]Dr. Garima Pulliam Glucose [Mass/Vol] 162 mg/dL Critically high 74-106 [facility] Comment on above: Performed By: #### B MP ####[facility] Fchlmammuf9[address] [place], [place] [address]Dr. Garima Pulliam Potassium [Moles/Vol] 3.6 mmol/L Normal 3.5-5.1 [facility] Comment on above: Performed By: #### B MP ####[facility] Hrepophwmj93[address] [place], [place] [address]Dr. Garima Pulliam Sodium [Moles/Vol] 139 mmol/L Normal 136-145 [facility] Comment on above: Performed By: #### B DAVID ####[facility] Nsulgmjuhr8637 [place] [address]Dr. Garima Pulliam Urea nitrogen [Mass/Vol] 9.0 mg/dL Normal 7.0-18.0 [facility] Comment on above: Performed By: #### B DAVID ####[facility] Dzyzswcozp9595 [place] [address]Dr. Garima Pulliam Urea nitrogen/Creatinine [Mass ratio] 14.3 mg/mg Normal [facility] Comment on above: Performed By: #### B DAVID ####[facility] Qfgemlnedc2938 [place] [address]Dr. Chapisrenu Pulliam CARDIAC NASH ADMITon 09-12- 022 CK [Catalytic activity/Vol] 304 U/L Normal 39-308 [facility] Comment on above: Performed By: #### B NANCY HERNANDEZ ####[facility] Ttsfaohubw9900 [place] [address]Dr. Garima Pulliam CK.MB [Mass/Vol] 11.81 ng/mL Critically high <=3.60 Th [facility] Comment on above: Performed By: #### B NNACY HERNANDEZ ####[facility] Ysggykarta9713 [place] [address]Dr. Garima Heraclio HSTROP 13.3 pg/mL Normal 4.0-76.1 [facility] Comment on above: Result Comment: CUT- OFF POINTS HAVE BEEN ESTABLISHED BASED ON THE FOURTH UNIVERSAL DEFINITIONS OF MYOCARDIALINFARCTION. THE UPPER REFERENCE LIMIT (URL) OF TROPONIN, DEFINED THE 99TH PERCENTILE OFcTnI DISTRIBUTION IN A REFERENCE POPULATION, HAS BEEN CONFIRMED THE DECISION THRESHOLDFOR ND DIAGNOSIS. Performed By: #### B NANCY HERNANDEZ ####[facility] Sdlbhombhm9999 [place] [address]Dr. Garima Pulliam DORIS 133 ng/mL Critically high 16-96 [facility] Comment on above: Performed By: #### B NANCY HERNANDEZ ####[facility] Onavgxbkep6769 [place] [address]Dr. Garima Pulliam CBC AUTO DIFFon 09-12-2022 BASO # 0.0 103/ul Normal 0.0-0.1 [facility] Comment on above: Performed By: #### C BC ####[facility] Mc[address]xzvctz[address] [place], [place] [address]Dr. Garima Heraclio Basophils/100 WBC (Bld) 0.2 % Normal 0.2-2.0 [facility] Comment on above: Performed By: #### C BC ####[facility] Kpclpalfmb[address] [place], [place] [address]Dr. Garima Heraclio EO # 0.2 103/ul Normal 0.0-0.7 [facility] Comment on above: Performed By: #### C BC ####[facility] Rsdwagjnxk[address] [place], [place] [address]Dr. Chapisrenu Pulliam Eosinophils/100 WBC (Bld) 1.3 % Normal 0.9-7.0 [facility] Comment on above: Performed By: #### C BC ####[facility] Rksozamcox7[address] [place], [place] [address]Dr. Garima Pulliam Erythrocyte distribution width (RBC) [Ratio] 13.7 % Normal 11.0-15.0 [facility] Comment on above: Performed By: #### C BC ####[facility] Gskkvbjase906[address] [place], [place] [address]Dr. Garima Pulliam Hematocrit (Bld) [Volume fraction] 46.4 % Normal 42.0-54.0 [facility] Comment on above: Performed By: #### C BC ####[facility] Afthzcricj807[address] [place], [place] [address]Dr. Garima Pulliam Hemoglobin (Bld) [Mass/Vol] 15.7 g/dL Normal 14.0-18.0 [facility] Comment on above: Performed By: #### C BC ####[facility] Mljsojthfm[address] [place], [place] [address]Dr. Garima Pulliam IG # 0.04 10e3/ul Critically high 0.00-0.03 [facility] Comment on above: Performed By: #### C BC ####[facility] Scsyfqdikz1740 [place] [address]Dr. Garima Pulliam IG % 0.3 % Normal 0.0-0.5 [facility] Comment on above: Performed By: #### C BC ####[facility] Ffzijqasxc0341 [place] [address]Dr. Garima Pulliam LYMPH # 1.7 103/ul Normal 1.2-3.8 [facility] Comment on above: Performed By: #### C BC ####[facility] Geshccudln3359 [place] [address]Dr. Garima Pulliam Lymphocytes/100 WBC (Bld) 11.5 % Critically low 20.5-60.0 [facility] Comment on above: Performed By: #### C BC ####[facility] Skqotpfhjc4463 [place] [address]Dr. Garima Pulliam MANUAL DIFF REQ NO Normal [facility] Comment on above: Performed By: #### C BC ####[facility] Gnedsbraam0077 [place] [address]Dr. Garima Pulliam MCH (RBC) [Entitic mass] 31.0 pg Normal 25.9-34.0 [facility] Comment on above: Performed By: #### C BC ####[facility] Duzdbkrozc1896 [place] [address]Dr. Garima Pulliam MCHC (RBC) [Mass/Vol] 33.8 g/dL Normal 29.9-35.2 [facility] Comment on above: Performed By: #### C BC ####[facility] Nnqukpftzy5844 [place] [address]Dr. Garima Pulliam MCV (RBC) [Entitic vol] 91.7 fL Normal 80.0-94.0 [facility] Comment on above: Performed By: #### C BC ####[facility] Ejplpkluvb7521 [place] [address]Dr. Garima Heraclio MONO # 0.8 103/ul Normal 0.3-0.8 [facility] Comment on above: Performed By: #### C BC ####[facility] Fmbhvgajau7222 [place] [address]Dr. Garima Pulliam Monocytes/100 WBC (Bld) 5.2 % Normal 1.7-12.0 [facility] Comment on above: Performed By: #### C BC ####[facility] Igsnfujang1109 [place] [address]Dr. Garima Pulliam NEUT # 11.7 103/ul Critically high 1.4-6.5 The [facility] Comment on above: Performed By: #### C BC ####[facility] Drehwblafs5340 [place] [address]Dr. Garima Pulliam Neutrophils/100 WBC (Bld) 81.5 % Critically high 43.0-75.0 [facility] Comment on above: Performed By: #### C BC ####[facility] Ywsttgqvrn8041 [place] [address]Dr. Garima Pulliam Platelet mean volume (Bld) [Entitic vol] 8.6 fL Critically low 9.5-13.5 [facility] Comment on above: Performed By: #### C BC ####[facility] Cnhmdweawt4831 [place] [address]Dr. Garima Pulliam PLT 191 103/ul Normal 150-450 [facility] Comment on above: Performed By: #### C BC ####[facility] B[address]fxxjljrz[address] [place], [place] [address]Dr. Garima Pulliam RBC 5.06 106/ul Normal 4.70-6.10 [facility] Comment on above: Performed By: #### C BC ####[facility] Ruycmeruia[address] [place], [place] [address]Dr. Garima Pulliam WBC 14.4 103/ul Critically high 4.0-11.0 The [facility] Comment on above: Performed By: #### C BC ####[facility] Ttopdvhiur[address] [place], [place] [address]Dr. Garima Pulliam [facility] SARS-CoV-2 (COVID-19) RNA MARIE+probe Ql (Unsp spec) Not detected Normal NOT DETECTED [facility] Comment on above: Result Comment: When [...] for this test is supported by the [place] of Health and Human Service's declaration that [...] be used). Performed By: #### C VDTBH ####[facility] Bpkyhwlmmg[address] [place], [place] [address]Dr. Garima Pulliam LACTATE/LACTIC ACIDon 2021 Lactate [Moles/Vol] 1.0 mmol/L Normal 0.4-1.9 [facility] Comment on above: Performed By: #### L ACT ####[facility] Ayyxexufso577[address] [place], [place] [address]Dr. Garima Pulliam PROF CHEM 8 (BAS METB)on Anion gap [Moles/Vol] 11.6 mmol/L Normal [facility] Comment on above: Performed By: #### B NANCY HERNANDEZ ####[facility] Pwvczgacjj5202 [place] [address]Dr. Garima Pulliam Calcium [Mass/Vol] 9.2 mg/dL Normal 8.5-10.1 [facility] Comment on above: Performed By: #### B NANCY HERNANDEZ ####[facility] Cscrvcbjjx3825 [place] [address]Dr. Garima Pulliam Chloride [Moles/Vol] 105 mmol/L Normal 98-107 [facility] Comment on above: Performed By: #### B MP, CMADM ####[facility] Ztrjewudxx6692 [place] [address]Dr. Garima Pulliam CO2 [Moles/Vol] 25.9 mmol/L Normal 21.0-32.0 [facility] Comment on above: Performed By: #### B DAVID, CMADM ####[facility] Kmzvcopaml1813 [place] [address]Dr. Garima Pulliam Creatinine [Mass/Vol] 0.72 mg/dL Normal 0.70-1.30 [facility] Comment on above: Performed By: #### B DAVID, CMADM ####[facility] Aakwflitqj2642 [place] [address]Dr. Garima Pulliam EGFR-AF BAHRAINI >60 Normal >=60 [facility] Comment on above: Performed By: #### B DAVID, CMADM ####[facility] Nqdpktvxix6824 [place] [address]Dr. Chapisrenu Pulliam EGFR-NON AF BAHRAINI >60 Normal >=60 [facility] Comment on above: Performed By: #### B DAVID, CMAANA ROSA ####[facility] Hmqlavrjso6688 [place] [address]Dr. Garima Pulliam Glucose [Mass/Vol] 111 mg/dL Critically high 74-106 [facility] Comment on above: Performed By: #### B DAVID, CMADM ####[facility] Hfdadarpyq8555 [place] [address]Dr. Chapisrenu Pulliam Potassium [Moles/Vol] 3.5 mmol/L Normal 3.5-5.1 [facility] Comment on above: Performed By: #### B DAVID, CMADM ####[facility] Ogsmybgmen6550 [place] [address]Dr. Chapisrenu Pulliam Sodium [Moles/Vol] 139 mmol/L Normal 136-145 [facility] Comment on above: Performed By: #### B DAVID, CMADM ####[facility] Tnisvclpjd9950 [place] [address]Dr. Garima Pulliam Urea nitrogen [Mass/Vol] 7.0 mg/dL Normal 7.0-18.0 [facility] Comment on above: Performed By: #### B DAVID, CMADM ####[facility] Uoabwxutec6717 [place], [place] [address]Tt. Garima Pulliam Urea nitrogen/Creatinine [Mass ratio] 9.7 mg/mg Normal [facility] Comment on above: Performed By: #### B MP, CMADM ####[facility] Tfmgnlkxmb9945 [place], [place] [address]Yz. Garima Pulliam XR CHEST 1 Von 09-12-2022 XR CHEST 1 V Normal [facility] Encounters Encounter Date Encounter Type Care [...] Facility:H1 Payers Date Payer Category Payer Unknown [id number] 1960 Medicaid [id number] 1960 Unknown [id number] 1960 Unknown [id number] 1954 Unknown [id number] 2.16.84 0.1.685362.3.579.2.593 1954 Unknown [id number] 2.16.84 0.1.835142.3.579.2.593 1954 Unknown [id number] 2.16.84 0.1.729311.3.579.2.593 1954 Unknown [id number] 2.16.84 0.1.355683.3.579.2.593 1954 Unknown [id number] 2.16.84 0.1.586194.3.579.2.593 1954 Unknown [id number] 2.16.84 0.1.804227.3.579.2.593 1954 Unknown [id number] 2.16.84 0.1.467519.3.579.2.593 1954 Unknown [id number] 2.16.84 0.1.022060.3.579.2.593 1954 Unknown [id number] 2.16.84 0.1.807451.3.579.2.593 1954 Unknown [id number] 2.16.84 0.1.283436.3.579.2.593 1954 Unknown [id number] 2.16.84 0.1.439886.3.579.2.593 1954 Unknown [id number] 2.16.84 0.1.286547.3.579.2.593 1954 Unknown [id number] 2.16.84 0.1.809433.3.579.2.593 1954 Unknown [id number] 2.16.84 0.1.420523.3.579.2.593 1954 Unknown [id number] 2.16.84 0.1.216847.3.579.2.593 1954 Unknown [id number] 2.16.84 0.1.330229.3.579.2.593 1954 Unknown [id number] 2.16.84 0.1.472440.3.579.2.593 1954 Unknown [id number] 2.16.84 0.1.399334.3.579.2.593 1954 Unknown [id number] 2.16.84 0.1.203486.3.579.2.593 1954 Unknown [id number] 2.16.84 0.1.417614.3.579.2.593 Summary Purpose Family History No Family History Records Found Advance Directives No Advanced Directives Records Found Additional Source Comments (unrecognized sect ion and content) No Status Records Found INFORMATION SOURCE (unrecogn ized section and content) DATE CREATED AUTHOR 04/08/2023 [facility] FOR RECORDS PERTAINING TO PATIENTS [...] BE BASED ON THE PRIMARY CLINICAL RECORDS. [facility] [facility]. provides no warranty or guarantee of the accuracy or completeness of information in this document.
[2025-02-06] MEDS: IPRATROPIUM/ALBUTEROL SULFATE 3 ML AMPUL.NEB IH (17:36)
[2025-02-06 17:37] VITALS: PULSE 76; O2SAT 95
[2025-02-06 17:43] VITALS: BP 168/87; PULSE 92; O2SAT 96
[2025-02-06] MEDS: ALBUTEROL SULFATE 200 PUFF/6.7 GM INHALER IH (17:47)
--- NOTE | 2025-02-06 18:19 | ED_ITS ---
HPI HPI - General Adult General Chief complaint: Shortness of Breath/Dyspnea Stated complaint: short of breath Time Seen by Provider: 02/06/25 16:46 Source: patient Mode of arrival: Wheelchair History of Present Illness HPI narrative: 69-year-old male to the emergency department requesting a breathing treatment. He reports [facility] He does not want anything else done. He denies any other issues. Related Data Home Medications ?Medication ?Instructions ?Recorded ?Confirmed albuterol sulfate 90 mcg/actuation 2 inh inhalation Q6H PRN shortness 03/13/24 02/06/25 aerosol inhaler of breath or wheezing Previous Rx's ?Medication ?Instructions ?Recorded metformin 500 mg tablet 500 mg PO BID #30 tabs 11/11/24 tamsulosin 0.4 mg capsule (Flomax) 0.4 mg PO DAILY 7 days #7 caps 11/11/24 ipratropium 0.5 mg-albuterol 3 mg 3 ml inhalation Q4H PRN shortness 12/10/24 (2.5 mg base)/3 mL nebulization of breath #90 mL soln albuterol sulfate 2.5 mg/3 mL 2.5 mg (3 mL) inhalation Q6H PRN 01/24/25 (0.083 %) solution for nebulization shortness of breath or wheezing #90 mL losartan 100 mg tablet 100 mg PO DAILY #30 tabs 01/27/25 Allergies Allergy/AdvReac Type Severity Reaction Status Date / Time No Known Drug Allergies Allergy Verified 02/06/25 17:00 Opioid HPI Opioid Management Most Recent Opioid Data: Last Pain Scale 3 01/27/25 19:02 01/27/25 Last ORT Total Score 0 01/29/24 06:36 01/29/24 Last ORT Risk Category Low Risk 01/29/24 06:36 01/29/24 Review of Systems ROS Status of ROS 10 or more systems reviewed and unremark able except as noted in history and below [facility] Medical History Hypokalemia ?E87.6 - Hypokalemia (ICD-10) New onset type 2 diabetes mellitus ?E11.9 - Type 2 diabetes mellitus without complications (ICD-10) Lower extremity edema ?R60.0 - Localized edema (ICD-10) Edema ?R60.9 - Edema, unspecified (ICD-10) Acute hyperglycemia ?R73.9 - Hyperglycemia, unspecified (ICD-10) Tobacco abuse ?Z72.0 - Tobacco use (ICD-10) HTN (hypertension) ?I10 - Essential (primary) hypertension (ICD-10) Community acquired pneumonia ?J18.9 - Pneumonia, unspecified organism (ICD-10) Chronic obstructive pulmonary disease ?J44.9 - Chronic obstructive pulmonary disease, unspecified (ICD-10) Acute exacerbation of chronic obstructive pulmonary disease (COPD) ?J44.1 - Chronic obstructive pulmonary disease with (acute) exacerbation (ICD-10) RLL pneumonia ?J18.9 - Pneumonia, unspecified organism (ICD-10) COPD (chronic obstructive pulmonary disease) ?J44.9 - Chronic obstructive pulmonary disease, unspecified (ICD-10) Surgical History Hx of tonsillectomy ?Z90.89 - Acquired absence of other organs (ICD-10) Family History Mother Family history of cancer Family history of hypertension Father Family history of cancer Social History Within the past year, how often did you have a drink containing alcohol: 4 or more times a week Within the past year, how many standard drinks containing alcohol did you have on a typical day: 3 or 4 Within the past year, how often did you have six or more drinks on one occasion: less than monthly Total score: 3 Score interpretation: A score of 4 or more indicates drinking is likely to affect patient's safety. Smoking status: Current every day smoker Non-prescribed substance use: cannabis (any form) Previous occupational history: retired Highest level of school completed/degree received: high school graduate Are you now , , , , never or living with a partner: In a typical week, how many times do you talk on the telephone with family, friends, or neighbors: twice per week How often do you get together with friends or relatives: once per week How often do you attend catholic or restorationism services: never Do you belong to any clubs or organizations such as catholic groups unions, fraternal or athletic groups, or school groups: no Total score: 1 Score interpretation: A score of less than or equal to 1 indicates the most socially isolated. Little interest or pleasure in doing things: not at all Feeling down, depressed, or hopeless: not at all Feel stressed/tense/nervous/anxious/difficulty sleeping: not at all Do you think of yourself as: straight/heterosexual Gender Identity: male Exam Narrative Exam Narrative: VITALS: I have reviewed the triage vital signs. GENERAL: Disheveled elderly male in no distress NEURO: Alert and oriented. Moves all extremities. Face is symmetric and expressive. EYES: PERRL. No scleral icterus or conjunctival injection. No discharge. HENT: Normocephalic, atraumatic. Hearing is grossly intact. Nares grossly patent and without discharge. Mucous membranes moist. NECK: No JVD. Patient moves neck without restriction. CARDIO: Rhythm regular. Normal rate. No murmur, rub, or gallop. Pulses equal bilaterally in the upper and lower extremity. No lower extremity edema. PULM: Lungs clear to auscultation in all juarez. No wheezes, rales, or rhonchi. No conversational dyspnea. No splinting, stridor, or accessory muscle use. EXTREMITIES: Symmetric muscle bulk. No joint swelling. No clubbing, cyanosis, or deformity. SKIN: Warm and dry. Normal turgor. No rash or lesions appreciated. PSYCH: Mood, affect, and interaction is appropriate to the setting. Constitutional Vital Signs, click to edit/add: Last Vital Signs Temp 98.6 F 02/06/25 17:02 Pulse 92 H 02/06/25 17:43 Resp 20 02/06/25 17:43 BP 168/87 H 02/06/25 17:43 Pulse Ox 96 02/06/25 17:43 O2 Del Method Room Air 02/06/25 17:37 Course Vital Signs Vital signs: Vital Signs Temperature 98.6 F 02/06/25 17:02 Pulse Rate 96 H 02/06/25 17:02 Respiratory Rate 22 H 02/06/25 17:02 Blood Pressure 190/101 H 02/06/25 17:02 Pulse Oximetry 92 L 02/06/25 17:02 Oxygen Delivery Method Room Air 02/06/25 17:02 Temperature 98.6 F 02/06/25 17:02 Pulse Rate 92 H 02/06/25 17:43 Respiratory Rate 20 02/06/25 17:43 Blood Pressure 168/87 H 02/06/25 17:43 Pulse Oximetry 96 02/06/25 17:43 Oxygen Delivery Method Room Air 02/06/25 17:37 Medical Decision Making MDM Narrative Medical decision making narrative: 69-year-old male to the emergency department with chief complaint of needing breathing treatment. Vital stable, the patient is afebrile. He is in no respiratory distress. He declines any other workup. DuoNeb treatment is ordered. He would like an albuterol to go. This was prescribed. Medical Records Medical records reviewed: Yes I reviewed the patient's medical records Discharge Plan Discharge Chief Complaint: Shortness of Breath/Dyspnea Clinical Impression: Medication refill, COPD (chronic obstructive pulmonary disease) Patient Disposition: Home, Self-Care Time of Disposition Decision: 17:18 Condition: Good Mode of Transportation: Private Vehicle Prescriptions / Home Meds: No Action albuterol sulfate 90 mcg/actuation HFA aerosol inhaler 2 inh inhalation Q6H PRN (Reason: shortness of breath or wheezing) albuterol sulfate 2.5 mg /3 mL (0.083 %) solution for nebulization 2.5 mg inhalation Q6H PRN (Reason: shortness of breath or wheezing) Qty: 90 0RF tamsulosin [Flomax] 0.4 mg capsule 0.4 mg PO DAILY 7 Days Qty: 7 0RF metformin 500 mg tablet 500 mg PO BID Qty: 30 0RF ipratropium-albuterol 0.5 mg-3 mg(2.5 mg base)/3 mL solution for nebulization 3 ml inhalation Q4H PRN (Reason: shortness of breath) Qty: 90 0RF Rx Instructions: until breathing returns to target peak flow/parameters losartan 100 mg tablet 100 mg PO DAILY Qty: 30 0RF Print Language: Welsh Instructions: COPD (Chronic Obstructive Pulmonary Disease) (ED) Additional Instructions: Call the office of your primary care doctor to arrange for follow-up within the above-stated timeframe. Your ED visit was focused on your acute issue and does not replace primary care. You should review your labs, imaging, and diagnoses from this ED visit with your primary care physician. There may be non-emergent/ incidental findings that need further evaluation. You should review your vital signs including blood pressure with your PCP. If you were prescribed medications you should discuss possible side-effects and drug interactions with your pharmacist. Call 911 or go to the nearest Emergency Department if you develop any new or worsening symptoms. Seek immediate medical attention if you develop: worsening shortness of breath, difficulty breathing, chest pain, nausea, vomiting, weakness, numbness, tingling, excessive sweating, loss of motion in your arms or legs, or any new or worsening symptoms. Referrals: SERG DUENAS [Primary Care Provider] - 1 week Discharge Date/Time: 02/06/25 17:52
== END 2025-02-06 17:52 | disposition home or self-care (01) ==
PROVIDERS: Emergency Provider Student in an Organized Health Care Education/Training Program
DX: J44.9 Chronic obstructive pulmonary disease, unspecified (principal); Z76.0 Encounter for issue of repeat prescription; R06.02 Shortness of breath; F17.200 Nicotine dependence, unspecified, uncomplicated
CPT/HCPCS: 94640; 99283

== ENCOUNTER 2025-02-20 23:00 | Emergency (ER) | payer MEDICARE, SELFPAY ==
[2025-02-20 23:14] VITALS: BP 171/100; PULSE 88; TEMP 36.8; O2SAT 90; BMI 23.7
[2025-02-20 23:24] VITALS: O2SAT 95
--- OUTSIDE RECORDS SUMMARY | 2025-02-20 23:33 | XMS_ITS | CCD ---
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 Garima Pulliam Basophils/100 WBC (Bld) 0.3 % Normal 0.2-2.0 [facility] Comment on above: Performed By: #### C BC ####[facility] Nlnxrhqbju1741 [place] [address]DrAdalberto Pulliam EO # 0.3 103/ul Normal 0.0-0.7 [facility] Comment on above: Performed By: #### C BC ####[facility] Ywem[address]finm[address] [place], [place] [address]Dr. Garima Pulliam Eosinophils/100 WBC (Bld) 2.8 % Normal 0.9-7.0 [facility] Comment on above: Performed By: #### C BC ####[facility] Jpmgpxflrw2887 [place] [address]Dr. Garima Pulliam Erythrocyte distribution width (RBC) [Ratio] 13.4 % Normal 11.0-15.0 [facility] Comment on above: Performed By: #### C BC ####[facility] Xhcvysgfyp2518 [place] [address]Dr. Garima Pulliam Hematocrit (Bld) [Volume fraction] 45.7 % Normal 42.0-54.0 [facility] Comment on above: Performed By: #### C BC ####[facility] Uqsucdlhld4211 [place] [address]Dr. Garima Pulliam Hemoglobin (Bld) [Mass/Vol] 15.2 g/dL Normal 14.0-18.0 [facility] Comment on above: Performed By: #### C BC ####[facility] Bcoiwvrait7774 [place] [address]Dr. Garima Pulliam IG # 0.02 10e3/ul Normal 0.00-0.03 [facility] Comment on above: Performed By: #### C BC ####[facility] Cjhteacbha6152 [place] [address]Dr. Garima Pulliam IG % 0.2 % Normal 0.0-0.5 [facility] Comment on above: Performed By: #### C BC ####[facility] Nluxmotysg9358 [place] [address]Dr. Garima Pulliam LYMPH # 2.1 103/ul Normal 1.2-3.8 [facility] Comment on above: Performed By: #### C BC ####[facility] Hqactywfyy4166 [place] [address]Dr. Garima Pulliam Lymphocytes/100 WBC (Bld) 23.7 % Normal 20.5-60.0 [facility] Comment on above: Performed By: #### C BC ####[facility] Sbusnwqola8161 [place] [address]Dr. Garima Heraclio MANUAL DIFF REQ NO Normal [facility] Comment on above: Performed By: #### C BC ####[facility] Wjvcagnucu3655 [place] [address]Dr. Garima Pulliam MCH (RBC) [Entitic mass] 30.4 pg Normal 25.9-34.0 [facility] Comment on above: Performed By: #### C BC ####[facility] Ufhcjioada0255 [place] [address]Dr. Garima Heraclio MCHC (RBC) [Mass/Vol] 33.3 g/dL Normal 29.9-35.2 [facility] Comment on above: Performed By: #### C BC ####[facility] Msmbrddoia[address] [place], [place] [address]Dr. Chapisrenu Pulliam MCV (RBC) [Entitic vol] 91.4 fL Normal 80.0-94.0 [facility] Comment on above: Performed By: #### C BC ####[facility] Qldffrcnci[address] [place], [place] [address]Dr. Garima Heraclio MONO # 0.7 103/ul Normal 0.3-0.8 [facility] Comment on above: Performed By: #### C BC ####[facility] Kzvukarrzw[address] [place], [place] [address]Dr. Chapisrenu Pulliam Monocytes/100 WBC (Bld) 8.3 % Normal 1.7-12.0 [facility] Comment on above: Performed By: #### C BC ####[facility] Gjfvlpzttf4128 [place] [address]Dr. Chapisrenu Heraclio NEUT # 5.8 103/ul Normal 1.4-6.5 [facility] Comment on above: Performed By: #### C BC ####[facility] Afwhsxgggc8[address] [place], [place] [address]Dr. Garima Pulliam Neutrophils/100 WBC (Bld) 64.7 % Normal 43.0-75.0 [facility] Comment on above: Performed By: #### C BC ####[facility] Qzkoaejcwo0885 [place] [address]Dr. Garima Pulliam Platelet mean volume (Bld) [Entitic vol] 8.6 fL Critically low 9.5-13.5 [facility] Comment on above: Performed By: #### C BC ####[facility] Wldzmjvrbi2525 [place] [address]Dr. Garima Pulliam PLT 230 103/ul Normal 150-450 [facility] Comment on above: Performed By: #### C BC ####[facility] Jvrayhusia9699 [place] [address]Dr. Chapisrenu Heraclio RBC 5.00 106/ul Normal 4.70-6.10 [facility] Comment on above: Performed By: #### C BC ####[facility] Dkjuqqbhdq4184 [place] [address]Dr. Garima Heraclio WBC 9.0 103/ul Normal 4.0-11.0 [facility] Comment on above: Performed By: #### C BC ####[facility] Fjpkcbccez8862 [place] [address]Dr. Garima Pulliam MAGNESIUMon 04-04-2023 Magnesium [Mass/Vol] 1.8 mg/dL Normal 1.8-2.4 [facility] Comment on above: Performed By: #### M G ####[facility] Prcormjhgl3657 [place] [address]Dr. Chapisrenu Pulliam PROF 14(COMP METB)on 023 Albumin [Mass/Vol] 3.8 g/dL Normal 3.4-5.0 [facility] Comment on above: Performed By: #### C MP ####[facility] Vaukewhkhd6930 [place] [address]Dr. Garima Pulliam Albumin/Globulin [Mass ratio] 1.2 {ratio} Normal [facility] Comment on above: Performed By: #### C MP ####[facility] Mgmkkakwki0613 [place] [address]Dr. Garima Heraclio ALP [Catalytic activity/Vol] 84 U/L Normal 46-116 [facility] Comment on above: Performed By: #### C MP ####[facility] Fmsiqzqdip1737 [place] [id number]. Garima Pulliam ALT [Catalytic activity/Vol] 31 U/L Normal 16-63 [facility] Comment on above: Performed By: #### C MP ####[facility] Rojkfanfrr6523 [place] [address]Dr. Garima Pulliam Anion gap [Moles/Vol] 12.2 mmol/L Normal [facility] Comment on above: Performed By: #### C MP ####[facility] Vfndevlnfz7340 [place] [address]Dr. Garima Pulliam AST [Catalytic activity/Vol] 23 U/L Normal 15-37 [facility] Comment on above: Performed By: #### C MP ####[facility] Rcgynprqxy[address] [place], [place] [address]Dr. Garima Pulliam Bilirubin [Mass/Vol] 0.5 mg/dL Normal 0.2-1.0 [facility] Comment on above: Performed By: #### C MP ####[facility] Lmdguscerf[address] [place], [place] [address]Dr. Garima Pulliam Calcium [Mass/Vol] 9.2 mg/dL Normal 8.5-10.1 [facility] Comment on above: Performed By: #### C MP ####[facility] Zrmstzpxyv[address] [place], [place] [address]Dr. Garima Pulliam Chloride [Moles/Vol] 103 mmol/L Normal 98-107 [facility] Comment on above: Performed By: #### C MP ####[facility] Qggbhserjp1458 [place] [address]Dr. Garima Pulliam CO2 [Moles/Vol] 28.5 mmol/L Normal 21.0-32.0 [facility] Comment on above: Performed By: #### C MP ####[facility] Tgbmealwij[address] [place], [place] [address]Dr. Garima Pulliam Creatinine [Mass/Vol] 0.74 mg/dL Normal 0.70-1.30 [facility] Comment on above: Performed By: #### C MP ####[facility] Rapopukske[address] [place] [id number]. Garima Pulliam EGFR-AF MACEDONIAN >60 Normal >=60 [facility] Comment on above: Performed By: #### C MP ####[facility] Tbwyysdoes9814 [place] [address]Dr. Garima Heraclio EGFR-NON AF MACEDONIAN >60 Normal >=60 [facility] Comment on above: Performed By: #### C MP ####[facility] Khmhgwethm7299 [place] [id number]. Garima Heraclio Globulin (S) [Mass/Vol] 3.1 g/dL Normal [facility] Comment on above: Performed By: #### C MP ####[facility] Dfnduczdqe23[address] [place], [place] [address]Dr. Garima Heraclio Glucose [Mass/Vol] 93 mg/dL Normal 74-106 [facility] Comment on above: Performed By: #### C MP ####[facility] Puyflfmvxk[address] [place], [place] [address]Dr. Garima Heraclio Potassium [Moles/Vol] 3.7 mmol/L Normal 3.5-5.1 [facility] Comment on above: Performed By: #### C MP ####[facility] Xfrynxuerv[address] [place], [place] [address]Dr. Garima Heraclio Protein [Mass/Vol] 6.9 g/dL Normal 6.4-8.2 [facility] Comment on above: Performed By: #### C MP ####[facility] Atxalbzxsg[address] [place], [place] [address]Dr. Garima Heraclio Sodium [Moles/Vol] 140 mmol/L Normal 136-145 [facility] Comment on above: Performed By: #### C MP ####[facility] Ouuclhvaho[address] [place], [place] [address]Dr. Garima Pulliam Urea nitrogen [Mass/Vol] 8.0 mg/dL Normal 7.0-18.0 [facility] Comment on above: Performed By: #### C MP ####[facility] Dfmogbnukl[address] [place], [place] [address]Dr. Garima Pulliam Urea nitrogen/Creatinine [Mass ratio] 10.8 mg/mg Normal [facility] Comment on above: Performed By: #### C DAVID ####[facility] Ailprorpgf7443 [place] [address]Dr. Garima Pulliam AMMONIAon 03-30-2023 Ammonia (P) [Moles/Vol] 11 umol/L Normal 11-32 [facility] Comment on above: Performed By: #### A MM ####[facility] Qtrtnegjoo[address] [place], [place] [address]Dr. Garima Pulliam CARDIAC NASH ADMITon 023 CK [Catalytic activity/Vol] 232 U/L Normal 39-308 [facility] Comment on above: Performed By: #### C NANCY HERNANDEZ ####[facility] Pzbveqkwpz1423 [place] [address]Dr. Chapisrenu Pulliam CK.MB [Mass/Vol] 4.83 ng/mL Critically high <=3.60 [facility] Comment on above: Performed By: #### C NANCY HERNANDEZ ####[facility] Jybdmuszbu92[address] [place], [place] [address]Dr. Garima Pulliam HSTROP 10.5 pg/mL Normal 4.0-76.1 [facility] Comment on above: Result Comment: CUT- OFF POINTS HAVE BEEN ESTABLISHED BASED ON THE FOURTH UNIVERSAL DEFINITIONS OF MYOCARDIALINFARCTION. THE UPPER REFERENCE LIMIT (URL) OF TROPONIN, DEFINED THE 99TH PERCENTILE OFcTnI DISTRIBUTION IN A REFERENCE POPULATION, HAS BEEN CONFIRMED THE DECISION THRESHOLDFOR OR DIAGNOSIS. Performed By: #### C NNACY HERNANDEZ ####[facility] [address]tezknjau[address] [place], [place] [address]Dr. Garima Heraclio DORIS 79 ng/mL Normal 16-96 [facility] Comment on above: Performed By: #### C NANCY HERNANDEZ ####[facility] Grgqkkfyux[address] [place], [place] [address]Dr. Garima Heraclio CBC AUTO DIFFon 03-30-2023 BASO # 0.0 103/ul Normal 0.0-0.1 [facility] Comment on above: Performed By: #### C BC ####[facility] Alkecqvzbs6372 [place] [id number]. Garima Pullima Basophils/100 WBC (Bld) 0.1 % Critically low 0.2-2.0 [facility] Comment on above: Performed By: #### C BC ####[facility] Zkfjsrfllp4029 [place] [id number]. Garima Pulliam EO # 0.3 103/ul Normal 0.0-0.7 [facility] Comment on above: Performed By: #### C BC ####[facility] Prooaajulk[address] [place], [place] [address]Dr. Garima Pulliam Eosinophils/100 WBC (Bld) 3.3 % Normal 0.9-7.0 [facility] Comment on above: Performed By: #### C BC ####[facility] Tasyyidwqq[address] [place], [place] [address]Dr. Garima Pulliam Erythrocyte distribution width (RBC) [Ratio] 13.5 % Normal 11.0-15.0 [facility] Comment on above: Performed By: #### C BC ####[facility] Mrglevyscx96[address] [place], [place] [address]Dr. Garima Pulliam Hematocrit (Bld) [Volume fraction] 42.9 % Normal 42.0-54.0 [facility] Comment on above: Performed By: #### C BC ####[facility] Kimuvvckij[address] [place], [place] [address]Dr. Garima Pulliam Hemoglobin (Bld) [Mass/Vol] 13.9 g/dL Critically low 14.0-18.0 [facility] Comment on above: Performed By: #### C BC ####[facility] Ijpiohlezb1740 [place] [id number]. Garima Pulliam IG # 0.01 10e3/ul Normal 0.00-0.03 [facility] Comment on above: Performed By: #### C BC ####[facility] Vryabbsvtm[address] [place], [place] [address]Dr. Garima Pulliam IG % 0.1 % Normal 0.0-0.5 [facility] Comment on above: Performed By: #### C BC ####[facility] Nvjakwuyvs5424 [place] [id number]. Garima Pulliam LYMPH # 1.7 103/ul Normal 1.2-3.8 [facility] Comment on above: Performed By: #### C BC ####[facility] Xgjnsvvaky3209 [place], [place] [address]Tt. Garima Pulliam Lymphocytes/100 WBC (Bld) 22.8 % Normal 20.5-60.0 [facility] Comment on above: Performed By: #### C BC ####[facility] Buvzgfxsft0726 [place] [id number]. Garima Heraclio MANUAL DIFF REQ NO Normal [facility] Comment on above: Performed By: #### C BC ####[facility] Wfeahtznzc6073 [place] [id number]. Garima Heraclio MCH (RBC) [Entitic mass] 30.5 pg Normal 25.9-34.0 [facility] Comment on above: Performed By: #### C BC ####[facility] Kjlojwdpaf7605 [place] [id number]. Garima Pulliam MCHC (RBC) [Mass/Vol] 32.4 g/dL Normal 29.9-35.2 [facility] Comment on above: Performed By: #### C BC ####[facility] Ihzxqavjrr9618 [place] [phone]. Garima Heraclio MCV (RBC) [Entitic vol] 94.1 fL Critically high 80.0-94.0 [facility] Comment on above: Performed By: #### C BC ####[facility] Myhoanjyxm7313 [place] [id number]. Garima Heraclio MONO # 0.7 103/ul Normal 0.3-0.8 [facility] Comment on above: Performed By: #### C BC ####[facility] Aunazdczar4655 [place] [phone]. Garima Heraclio Monocytes/100 WBC (Bld) 8.6 % Normal 1.7-12.0 [facility] Comment on above: Performed By: #### C BC ####[facility] Mhoptzgnoo3271 [place] [phone]. Garima Pulliam NEUT # 4.9 103/ul Normal 1.4-6.5 [facility] Comment on above: Performed By: #### C BC ####[facility] Ubauembkyb4073 [place] [phone]. Garima Pulliam Neutrophils/100 WBC (Bld) 65.1 % Normal 43.0-75.0 [facility] Comment on above: Performed By: #### C BC ####[facility] Yvxdssiigu9215 [place] [phone]. Garima Pulliam Platelet mean volume (Bld) [Entitic vol] 8.5 fL Critically low 9.5-13.5 [facility] Comment on above: Performed By: #### C BC ####[facility] Gmsfeozmxc1905 [place] [phone]. Garima Pulliam PLT 219 103/ul Normal 150-450 [facility] Comment on above: Performed By: #### C BC ####[facility] Cfgyeflogf0237 [place] [phone]. Garima Pulliam RBC 4.56 106/ul Critically low 4.70-6.10 [facility] Comment on above: Performed By: #### C BC ####[facility] Uzzbrfexin1728 [place] [phone]. Garima Pulliam WBC 7.6 103/ul Normal 4.0-11.0 [facility] Comment on above: Performed By: #### C BC ####[facility] Ijjquonket9931 [place] [phone]. Garima Pulliam LACTATE/LACTIC ACIDon 2022 Lactate [Moles/Vol] 1.2 mmol/L Normal 0.4-2.[address] [facility] Comment on above: Performed By: #### L ACT ####[facility] Fakxadldhy1936 [place] [id number]. Garima Pulliam MAGNESIUMon 03-30-2023 Magnesium [Mass/Vol] 1.8 mg/dL Normal 1.8-2.4 [facility] Comment on above: Performed By: #### M G ####[facility] Mrdygeteel5573 [place] [address]Dr. Garima Pulliam PROF 14(COMP METB)on 023 Albumin [Mass/Vol] 3.5 g/dL Normal 3.4-5.0 [facility] Comment on above: Performed By: #### C DAVID, CMAANA ROSA ####[facility] Ugpfcwnusv4976 [place] [address]Dr. Garima Pulliam Albumin/Globulin [Mass ratio] 1.2 {ratio} Normal [facility] Comment on above: Performed By: #### C DAVID, CMAANA ROSA ####[facility] Zttygdqevf5046 [place] [address]Dr. Garima Pulliam ALP [Catalytic activity/Vol] 85 U/L Normal 46-116 [facility] Comment on above: Performed By: #### C DAVID, CMAANA ROSA ####[facility] Pnatyofikd[address] [place], [place] [address]Dr. Garima Pulliam ALT [Catalytic activity/Vol] 29 U/L Normal 16-63 [facility] Comment on above: Performed By: #### C DAVID, CMAANA ROSA ####[facility] Jgrbcmvepc2493 [place] [address]Dr. Garima Pulliam Anion gap [Moles/Vol] 8.0 mmol/L Normal [facility] Comment on above: Performed By: #### C DAVID, CMAANA ROSA ####[facility] Tkiqpivniv5310 [place] [address]Dr. Garima Pulliam AST [Catalytic activity/Vol] 18 U/L Normal 15-37 [facility] Comment on above: Performed By: #### C DAVID, CMADM ####[facility] Tepeyvtctb7937 [place] [address]Dr. Garima Pulliam Bilirubin [Mass/Vol] 0.4 mg/dL Normal 0.2-1.0 [facility] Comment on above: Performed By: #### C DAVID, CMADM ####[facility] Jklfnckyaf0694 [place] [address]Dr. Garima Pulliam Calcium [Mass/Vol] 8.8 mg/dL Normal 8.5-10.1 [facility] Comment on above: Performed By: #### C DAVID, NANCY ####[facility] Zfcaclllqc8947 [place] [address]Dr. Chapisrenu Pulliam Chloride [Moles/Vol] 108 mmol/L Critically high 98-107 [facility] Comment on above: Performed By: #### C DAVID, NANCY ####[facility] Nvwicnymwa9135 [place] [address]Dr. Garima Pulliam CO2 [Moles/Vol] 29.6 mmol/L Normal 21.0-32.0 [facility] Comment on above: Performed By: #### C NANCY HERNANDEZ ####[facility] Dyrngnocnb[address] [place], [place] [address]Dr. Garima Pulliam Creatinine [Mass/Vol] 0.77 mg/dL Normal 0.70-1.30 [facility] Comment on above: Performed By: #### C NANCY HERNANDEZ ####[facility] Bhtlfuenud[address] [place], [place] [address]Dr. Garima Heraclio EGFR-AF MACEDONIAN >60 Normal >=60 [facility] Comment on above: Performed By: #### C NANCY HERNANDEZ ####[facility] Lmgpvrhtyu[address] [place], [place] [address]Dr. Garima Heraclio EGFR-NON AF MACEDONIAN >60 Normal >=60 [facility] Comment on above: Performed By: #### C NANCY HERNANDEZ ####[facility] Zwlaktcvhs6090 [place] [address]Dr. Garima Pulliam Globulin (S) [Mass/Vol] 2.8 g/dL Normal [facility] Comment on above: Performed By: #### C NANCY HERNANDEZ ####[facility] Bjpmecuyjy5232 [place] [address]Dr. Garima Pulliam Glucose [Mass/Vol] 207 mg/dL Critically high 74-106 [facility] Comment on above: Performed By: #### C NANCY HERNANDEZ ####[facility] Aakihrwimx[address] [place], [place] [address]Dr. Garima Pulliam Potassium [Moles/Vol] 4.6 mmol/L Normal 3.5-5.1 [facility] Comment on above: Performed By: #### C DAVID, NANCY ####[facility] Lqoabjksuc2149 [place] [address]Dr. Garima Pulliam Protein [Mass/Vol] 6.3 g/dL Critically low 6.4-8.2 [facility] Comment on above: Performed By: #### C DAVID, NANCY ####[facility] Aditazrqmf7631 [place] [address]Dr. Garima Pulliam Sodium [Moles/Vol] 141 mmol/L Normal 136-145 [facility] Comment on above: Performed By: #### C DAVID, NANCY ####[facility] Oeuzamucpw6126 [place] [address]Dr. Garima Pulliam Urea nitrogen [Mass/Vol] 9.0 mg/dL Normal 7.0-18.0 [facility] Comment on above: Performed By: #### C DAVID, NANCY ####[facility] Fwceyfiufq0298 [place] [address]Dr. Garima Pulliam Urea nitrogen/Creatinine [Mass ratio] 11.7 mg/mg Normal [facility] Comment on above: Performed By: #### C DAVID, NANCY ####[facility] Qblzycuxnl9366 [place] [address]Dr. Garima Pulliam XR CHEST 1 Von 03-30-2023 XR CHEST 1 V Normal [facility] BNPon 03-27-2023 Natriuretic peptide B (Bld) [Mass/Vol] 251.0 pg/mL Normal <=900.0 [facility] Comment on above: Performed By: #### C MP, BNP, LIPID ####[facility] Ucjznegwie6957 [place] [address]Dr. Garima Pulliam GLYCOHEMOGLOBIN A1Con 2022 ADA RECOMMENDATION SEE BELOW Normal [facility] Comment on above: Result Comment: ADA RECOMMENDED LIMIT 4.0 - 6.0 ADA THERAPEUTIC TARGET < 7.0 ACTION SUGGESTED > 7.0 Performed By: #### A 1C ####[facility] Ybtzubmwan8606 [place] [address]Dr. Garima Pulliam Glucose [Mass/Vol] 180 mg/dL Normal [facility] Comment on above: Performed By: #### A 1C ####[facility] [address]occzdvaet[address] [place], [place] [address]Dr. Chapisrenu Pulliam HbA1c (Bld) [Mass fraction] 7.9 % Critically high 4.5-6.2 [facility] Comment on above: Performed By: #### A 1C ####[facility] [address]mybvdldws[address] [place], [place] [address]Dr. Garima Pulliam HEMOGRAM AND PLATELon 2022 Hematocrit (Bld) [Volume fraction] 45.7 % Normal 42.0-54.0 [facility] Comment on above: Performed By: #### H H ####[facility] Numbbwjutz[address] [place], [place] [address]Dr. Garima Pulliam Hemoglobin (Bld) [Mass/Vol] 15.1 g/dL Normal 14.0-18.0 [facility] Comment on above: Performed By: #### H H ####[facility] Y[address]rvjsdwe[address] [place], [place] [address]Dr. Garima Pulliam MCH (RBC) [Entitic mass] 30.0 pg Normal 25.9-34.0 [facility] Comment on above: Performed By: #### H H ####[facility] Jdnyyueyqn[address] [place], [place] [address]Dr. Garima Pulliam MCHC (RBC) [Mass/Vol] 33.0 g/dL Normal 29.9-35.2 [facility] Comment on above: Performed By: #### H H ####[facility] Reofiywwkm[address] [place], [place] [address]Dr. Garima Pulliam MCV (RBC) [Entitic vol] 90.7 fL Normal 80.0-94.0 [facility] Comment on above: Performed By: #### H H ####[facility] Mckyqkqgqm[address] [place], [place] [address]Dr. Garima Pulliam PLT 222 103/ul Normal 150-450 [facility] Comment on above: Performed By: #### H H ####[facility] Yqsgkbxlvk6910 [place] [id number]. Garima Pulliam RBC 5.04 106/ul Normal 4.70-6.10 [facility] Comment on above: Performed By: #### H H ####[facility] Myzsnizdjl2618 [place] [id number]. Garima Pulliam WBC 8.7 103/ul Normal 4.0-11.0 [facility] Comment on above: Performed By: #### H H ####[facility] Qmjkqsoswy8849 [place] [id number]. Garima Pulliam LIPID PROFILEon 03-27-2023 CHOL-HDL RATIO NORM SEE BELOW Normal [facility] Comment on above: Result Comment: 3.3 - 4.4 LOW RISK 4.4 - 7.1 AVERAGE RISK 7.1 - 11.0 MODERATE RISK >11.0 HIGH RISK Performed By: #### C MP, BNP, LIPID ####[facility] Xfchyhzonb6366 [place] [address]Dr. Garima Pulliam Cholesterol [Mass/Vol] 113 mg/dL Normal <=200 [facility] Comment on above: Performed By: #### C MP, BNP, LIPID ####[facility] Gmoozwdyda2636 [place] [address]Dr. Garima Pulliam Cholesterol in HDL [Mass/Vol] 51 mg/dL Normal 40-60 [facility] Comment on above: Performed By: #### C MP, BNP, LIPID ####[facility] Fkiwtfnbgf1596 [place] [address]Dr. Garima Pulliam Cholesterol in LDL [Mass/Vol] 49.8 mg/dL Normal [facility] Comment on above: Performed By: #### C MP, BNP, LIPID ####[facility] Jaffdoavmt3923 [place] [address]Dr. Garima Pulliam Cholesterol.total/Cho lesterol in HDL [Mass ratio] 2.2 {ratio} Normal [facility] Comment on above: Performed By: #### C MP, BNP, LIPID ####[facility] Nhkqcmbtwh4829 [place] [address]Dr. Garima Pulliam HDL NORMAL > or = 60 mg/dl - LOW CARDIOVASCULAR RISK <40 mg/dl - HIGH CARDIOVASCULAR RISK Normal [facility] Comment on above: Performed By: #### C MP, BNP, LIPID ####[facility] Ouuzgcydoi[address] [place] [address]Dr. Garima Pulliam LDL CALC NORMAL SEE BELOW Normal [facility] Comment on above: Result Comment: <100 mg/dl OPTIMAL 100 - 129 mg/dl NEAR OR ABOVE OPTIMAL 130 - 159 mg/dl BORDERLINE HIGH 160 - 189 mg/dl HIGH >190 mg/dl VERY HIGH Performed By: #### C MP, BNP, LIPID ####[facility] [address]vfghcajg[address] [place] [address]Dr. Garima Pulliam Triglyceride [Mass/Vol] 61 mg/dL Normal <=150 [facility] Comment on above: Performed By: #### C MP, BNP, LIPID ####[facility] Euijidhqna[address] [place] [address]Dr. Garima Pullima VLDL CALC 12.2 mg/dL Normal [facility] Comment on above: Performed By: #### C MP, BNP, LIPID ####[facility] Ngfzrylqmd7647 [place] [address]Dr. Garima Pulliam PROF 14(COMP METB)on 023 Albumin [Mass/Vol] 3.5 g/dL Normal 3.4-5.0 [facility] Comment on above: Performed By: #### C MP, BNP, LIPID ####[facility] Kezeoihwhs[address] [place] [address]Dr. Garima Pulliam Albumin/Globulin [Mass ratio] 1.2 {ratio} Normal [facility] Comment on above: Performed By: #### C MP, BNP, LIPID ####[facility] Cpkngzaoyv0991 [place] [address]Dr. Garima Pulliam ALP [Catalytic activity/Vol] 82 U/L Normal 46-116 [facility] Comment on above: Performed By: #### C MP, BNP, LIPID ####[facility] Pjiodxyibi8194 [place] [address]Dr. Garima Pulliam ALT [Catalytic activity/Vol] 33 U/L Normal 16-63 [facility] Comment on above: Performed By: #### C MP, BNP, LIPID ####[facility] Ofqxnpryzx0213 [place] [address]Dr. Garima Pulliam Anion gap [Moles/Vol] 9.9 mmol/L Normal [facility] Comment on above: Performed By: #### C MP, BNP, LIPID ####[facility] Jtfhqjnylk4986 [place] [address]Dr. Garima Pulliam AST [Catalytic activity/Vol] 24 U/L Normal 15-37 [facility] Comment on above: Performed By: #### C MP, BNP, LIPID ####[facility] Nfedcdbxpj0695 [place] [address]Dr. Garima Pulliam Bilirubin [Mass/Vol] 0.6 mg/dL Normal 0.2-1.0 [facility] Comment on above: Performed By: #### C MP, BNP, LIPID ####[facility] Jqomxdtkrm5268 [place] [address]Dr. Garima Pulliam Calcium [Mass/Vol] 9.2 mg/dL Normal 8.5-10.1 [facility] Comment on above: Performed By: #### C MP, BNP, LIPID ####[facility] Whrpmmpnwa9285 [place] [address]Dr. Garima Pulliam Chloride [Moles/Vol] 106 mmol/L Normal 98-107 [facility] Comment on above: Performed By: #### C MP, BNP, LIPID ####[facility] Mxhijprkgr8751 [place] [address]Dr. Garima Pulliam CO2 [Moles/Vol] 32.3 mmol/L Critically high 21.0-32.0 [facility] Comment on above: Performed By: #### C MP, BNP, LIPID ####[facility] Pfyibqejsc6796 [place] [address]Dr. Garima Pulliam Creatinine [Mass/Vol] 0.70 mg/dL Normal 0.70-1.30 [facility] Comment on above: Performed By: #### C MP, BNP, LIPID ####[facility] Hnfugcmxfd[address] [place] [id number]. Garima Pulliam EGFR-AF MACEDONIAN >60 Normal >=60 [facility] Comment on above: Performed By: #### C MP, BNP, LIPID ####[facility] Mmrfixyapo3734 [place] [id number]. Garima Pulliam EGFR-NON AF MACEDONIAN >60 Normal >=60 [facility] Comment on above: Performed By: #### C MP, BNP, LIPID ####[facility] Hwbbpkodgx5785 [place] [address]Dr. Garima Pulliam Globulin (S) [Mass/Vol] 2.9 g/dL Normal [facility] Comment on above: Performed By: #### C MP, BNP, LIPID ####[facility] Tuqeroqeqy0773 [place] [address]Dr. Garima Pulliam Glucose [Mass/Vol] 111 mg/dL Critically high 74-106 [facility] Comment on above: Performed By: #### C MP, BNP, LIPID ####[facility] Drhlydpyzh9455 [place] [address]Dr. Garima Pulliam Potassium [Moles/Vol] 4.2 mmol/L Normal 3.5-5.1 [facility] Comment on above: Performed By: #### C MP, BNP, LIPID ####[facility] Kzidvzrwer0059 [place] [address]Dr. Garima Pulliam Protein [Mass/Vol] 6.4 g/dL Normal 6.4-8.2 [facility] Comment on above: Performed By: #### C MP, BNP, LIPID ####[facility] Fkhujwrhit3312 [place] [address]Dr. Garima Pulliam Sodium [Moles/Vol] 144 mmol/L Normal 136-145 [facility] Comment on above: Performed By: #### C MP, BNP, LIPID ####[facility] Pugcbwjbcz5179 [place] [address]Dr. Garima Pulliam Urea nitrogen [Mass/Vol] 7.0 mg/dL Normal 7.0-18.0 [facility] Comment on above: Performed By: #### C MP, BNP, LIPID ####[facility] Giasuhiqsu[address] [place], [place] [address]Dr. Garima Pulliam Urea nitrogen/Creatinine [Mass ratio] 10.0 mg/mg Normal [facility] Comment on above: Performed By: #### C MP, BNP, LIPID ####[facility] Zcwugkvbmc[address] [place], [place] [address]Dr. Garima Pulliam BNPon 03-22-2023 Natriuretic peptide B (Bld) [Mass/Vol] 103.0 pg/mL Normal <=900.0 [facility] Comment on above: Performed By: #### B LAMBSKIN TRIMMER, BMP ####[facility] Jnhptktfnh[address] [place], [place] [address]Dr. Garima Pulliam CBC AUTO DIFFon 03-22-2023 BASO # 0.0 103/ul Normal 0.0-0.1 [facility] Comment on above: Performed By: #### C BC ####[facility] Aiopcyxfjm[address] [place], [place] [address]Dr. Garima Heraclio Basophils/100 WBC (Bld) 0.3 % Normal 0.2-2.0 [facility] Comment on above: Performed By: #### C BC ####[facility] Gbyukvhixy[address] [place], [place] [address]Dr. Garima Pulliam EO # 0.2 103/ul Normal 0.0-0.7 [facility] Comment on above: Performed By: #### C BC ####[facility] Nguknrzxom[address] [place], [place] [address]Dr. Garima Pulliam Eosinophils/100 WBC (Bld) 2.2 % Normal 0.9-7.0 [facility] Comment on above: Performed By: #### C BC ####[facility] Zyhlojffui[address] [place], [place] [address]Dr. Garima Pulliam Erythrocyte distribution width (RBC) [Ratio] 13.2 % Normal 11.0-15.0 [facility] Comment on above: Performed By: #### C BC ####[facility] Mpudmmdnll9616 [place] [id number]. Garima Pulliam Hematocrit (Bld) [Volume fraction] 43.4 % Normal 42.0-54.0 [facility] Comment on above: Performed By: #### C BC ####[facility] Owfliogrdg3474 [place] [address]Dr. Garima Heraclio Hemoglobin (Bld) [Mass/Vol] 14.3 g/dL Normal 14.0-18.0 [facility] Comment on above: Performed By: #### C BC ####[facility] Ewijixbvao2063 [place] [address]Dr. Garima Pulliam IG # 0.02 10e3/ul Normal 0.00-0.03 [facility] Comment on above: Performed By: #### C BC ####[facility] Rzimsbnxzr5196 [place] [address]Dr. Garima Pulliam IG % 0.3 % Normal 0.0-0.5 [facility] Comment on above: Performed By: #### C BC ####[facility] Gwqvicvnkq8766 [place] [address]Dr. Chapisrenu Pulliam LYMPH # 2.0 103/ul Normal 1.2-3.8 [facility] Comment on above: Performed By: #### C BC ####[facility] Zkxnwkosix1202 [place] [address]Dr. Chapisrenu Pulliam Lymphocytes/100 WBC (Bld) 24.8 % Normal 20.5-60.0 [facility] Comment on above: Performed By: #### C BC ####[facility] Xwxxddtfki1326 [place] [address]Dr. Chapisrenu Pulliam MANUAL DIFF REQ NO Normal [facility] Comment on above: Performed By: #### C BC ####[facility] Ufmufmbkpq8787 [place] [address]Dr. Garima Heraclio MCH (RBC) [Entitic mass] 30.0 pg Normal 25.9-34.0 [facility] Comment on above: Performed By: #### C BC ####[facility] Lptyofgkmk[address] [place], [place] [address]Dr. Garima Pulliam MCHC (RBC) [Mass/Vol] 32.9 g/dL Normal 29.9-35.2 [facility] Comment on above: Performed By: #### C BC ####[facility] Jopqjvstwh1737 [place] [id number]. Garmia Pulliam MCV (RBC) [Entitic vol] 91.0 fL Normal 80.0-94.0 [facility] Comment on above: Performed By: #### C BC ####[facility] Urwlnmzhnv1654 [place] [id number]. Garima Heraclio MONO # 0.8 103/ul Normal 0.3-0.8 [facility] Comment on above: Performed By: #### C BC ####[facility] Gyjgqjffkj9348 [place] [address]Dr. Chapisrenu Pulliam Monocytes/100 WBC (Bld) 9.7 % Normal 1.7-12.0 [facility] Comment on above: Performed By: #### C BC ####[facility] Sssinidxru3670 [place] [address]Dr. Garima Pulliam NEUT # 4.9 103/ul Normal 1.4-6.5 [facility] Comment on above: Performed By: #### C BC ####[facility] Dgmbfespif0951 [place] [id number]. Garima Heraclio Neutrophils/100 WBC (Bld) 62.7 % Normal 43.0-75.0 [facility] Comment on above: Performed By: #### C BC ####[facility] Cnmplsffud7176 [place] [id number]. Garima Heraclio Platelet mean volume (Bld) [Entitic vol] 8.8 fL Critically low 9.5-13.5 [facility] Comment on above: Performed By: #### C BC ####[facility] Abudpbrolp6213 [place] [id number]. Garima Heraclio PLT 198 103/ul Normal 150-450 [facility] Comment on above: Performed By: #### C BC ####[facility] Sudgrhzgbv7040 [place] [phone]. Garima Heraclio RBC 4.77 106/ul Normal 4.70-6.10 [facility] Comment on above: Performed By: #### C BC ####[facility] Ttnbqferju7389 [place] [phone]. Garima Heraclio WBC 7.9 103/ul Normal 4.0-11.0 [facility] Comment on above: Performed By: #### C BC ####[facility] Ctannauool0589 [place] [id number]. Garima Heraclio D-DIMERon 03-22-2023 D-DIMER 0.85 mg/L FEU Critically high <=0.59 [facility] Comment on above: Performed By: #### D DIM ####[facility] Cziymmyaoj9063 [place] [address]Dr. Garima Pulliam D-DIMER COMMENTS SEE BELOW Normal [facility] Comment on above: Result Comment: Incr [...] generalized hospitalization. Performed By: #### D DIM ####[facility] Yxwenxzxux[address] [place], [place] [address]Dr. Garima Pulliam PROF CHEM 8 (BAS METB)on Anion gap [Moles/Vol] 6.9 mmol/L Normal [facility] Comment on above: Performed By: #### B LAMBSKIN TRIMMER, BMP ####[facility] Nsreiuthor8841 [place] [address]Dr. Garima Pulliam Calcium [Mass/Vol] 8.9 mg/dL Normal 8.5-10.1 [facility] Comment on above: Performed By: #### B LAMBSKIN TRIMMER, BMP ####[facility] Ddpeisvkat5695 [place] [address]Dr. Garima Pulliam Chloride [Moles/Vol] 101 mmol/L Normal 98-107 [facility] Comment on above: Performed By: #### B LAMBSKIN TRIMMER, BMP ####[facility] Bpoqmqdolz[address] [place], [place] [address]Dr. Chapisrenu Heraclio CO2 [Moles/Vol] 30.7 mmol/L Normal 21.0-32.0 [facility] Comment on above: Performed By: #### B LAMBSKIN TRIMMER, BMP ####[facility] Bfakuajxel18[address] [place], [place] [address]Dr. Garima Pulliam Creatinine [Mass/Vol] 0.82 mg/dL Normal 0.70-1.30 [facility] Comment on above: Performed By: #### B LAMBSKIN TRIMMER, BMP ####[facility] Ehunwumvfo65[address] [place], [place] [address]Dr. Garima Pulliam EGFR-AF MACEDONIAN >60 Normal >=60 [facility] Comment on above: Performed By: #### B LAMBSKIN TRIMMER, BMP ####[facility] Efdsvqtysz397[address] [place], [place] [address]Dr. Chapisrenu Heraclio EGFR-NON AF MACEDONIAN >60 Normal >=60 [facility] Comment on above: Performed By: #### B LAMBSKIN TRIMMER, BMP ####[facility] Eljanmpshv8[address] [place], [place] [address]Dr. Garima Pulliam Glucose [Mass/Vol] 339 mg/dL Critically high 74-106 [facility] Comment on above: Performed By: #### B LAMBSKIN TRIMMER, BMP ####[facility] Tpimewdwiv64[address] [place], [place] [address]Dr. Garima Pulliam Potassium [Moles/Vol] 3.6 mmol/L Normal 3.5-5.1 [facility] Comment on above: Performed By: #### B LAMBSKIN TRIMMER, BMP ####[facility] Ejnhilndwn50[address] [place], [place] [address]Dr. Garima Pulliam Sodium [Moles/Vol] 135 mmol/L Critically low 136-145 [facility] Comment on above: Performed By: #### B LAMBSKIN TRIMMER, BMP ####[facility] Igbhckewej[address] [place], [place] [address]Dr. Garima Pulliam Urea nitrogen [Mass/Vol] 11.0 mg/dL Normal 7.0-18.0 [facility] Comment on above: Performed By: #### B LAMBSKIN TRIMMER, BMP ####[facility] Mcrrmqigzz[address] [place], [place] [address]Dr. Garima Pulliam Urea nitrogen/Creatinine [Mass ratio] 13.4 mg/mg Normal [facility] Comment on above: Performed By: #### B LAMBSKIN TRIMMER, BMP ####[facility] Bdhtnnmxpk[address] [place], [place] [address]Dr. Garima Pulliam US VERONICA DOP LEG BILon 023 US VERONICA DOP LEG BENOIT Normal [facility] BNPon 03-18-2023 Natriuretic peptide B (Bld) [Mass/Vol] 226.0 pg/mL Normal <=900.0 [facility] Comment on above: Performed By: #### B LAMBSKIN TRIMMER, BMP ####[facility] Gxpfcddtof98[address] [place], [place] [address]Dr. Garmia Pulliam CBC AUTO DIFFon 03-18-2023 BASO # 0.0 103/ul Normal 0.0-0.1 [facility] Comment on above: Performed By: #### C BC ####[facility] Ltlfnsozlc[address] [place], [place] [address]Dr. Garima Heraclio Basophils/100 WBC (Bld) 0.2 % Normal 0.2-2.0 [facility] Comment on above: Performed By: #### C BC ####[facility] Ilzexjnkgi6[address] [place], [place] [address]Dr. Garima Pulliam EO # 0.3 103/ul Normal 0.0-0.7 [facility] Comment on above: Performed By: #### C BC ####[facility] Jelfigsyvi[address] [place], [place] [address]Dr. Garima Heraclio Eosinophils/100 WBC (Bld) 2.5 % Normal 0.9-7.0 [facility] Comment on above: Performed By: #### C BC ####[facility] Mkshyigwoi[address] [place], [place] [address]Dr. Garima Heraclio Erythrocyte distribution width (RBC) [Ratio] 13.2 % Normal 11.0-15.0 [facility] Comment on above: Performed By: #### C BC ####[facility] Vasixemtmu0882 [place] [address]DrAdalberto Pulliam Hematocrit (Bld) [Volume fraction] 45.8 % Normal 42.0-54.0 [facility] Comment on above: Performed By: #### C BC ####[facility] Oxpyvsuvwo3407 [place] [address]DrAdalberto Pulliam Hemoglobin (Bld) [Mass/Vol] 15.3 g/dL Normal 14.0-18.0 [facility] Comment on above: Performed By: #### C BC ####[facility] Iqqyumypkf[address] [place], [place] [address]DrAdalberto Pulliam IG # 0.02 10e3/ul Normal 0.00-0.03 [facility] Comment on above: Performed By: #### C BC ####[facility] Feamzgguip[address] [place], [place] [address]DrAdalberto Pulliam IG % 0.2 % Normal 0.0-0.5 [facility] Comment on above: Performed By: #### C BC ####[facility] Ugawlgmfog[address] [place], [place] [address]DrAdalberto Pulliam LYMPH # 1.8 103/ul Normal 1.2-3.8 [facility] Comment on above: Performed By: #### C BC ####[facility] Prrcvvntqp[address] [place], [place] [address]DrAdalberto Pulliam Lymphocytes/100 WBC (Bld) 18.3 % Critically low 20.5-60.0 [facility] Comment on above: Performed By: #### C BC ####[facility] Cvnvgxokjj[address] [place], [place] [address]DrAdalberto Pulliam MANUAL DIFF REQ NO Normal [facility] Comment on above: Performed By: #### C BC ####[facility] Avpsgqgltq9706 [place] [address]DrAdalberto Pulliam MCH (RBC) [Entitic mass] 30.5 pg Normal 25.9-34.0 [facility] Comment on above: Performed By: #### C BC ####[facility] Hayflynjee4695 [place] [address]DrAdalberto Pulliam MCHC (RBC) [Mass/Vol] 33.4 g/dL Normal 29.9-35.2 [facility] Comment on above: Performed By: #### C BC ####[facility] Dktfeqhxju7747 [place] [address]DrAdalberto Pulliam MCV (RBC) [Entitic vol] 91.2 fL Normal 80.0-94.0 [facility] Comment on above: Performed By: #### C BC ####[facility] Jlfmzndfcs[address] [place], [place] [address]DrAdalberot Pulliam MONO # 0.8 103/ul Normal 0.3-0.8 [facility] Comment on above: Performed By: #### C BC ####[facility] Dtyzkzhmjf[address] [place], [place] [address]DrAdalberto Pulliam Monocytes/100 WBC (Bld) 7.6 % Normal 1.7-12.0 [facility] Comment on above: Performed By: #### C BC ####[facility] Pljmwqacsh[address] [place], [place] [address]DrAdalberto Pulliam NEUT # 7.0 103/ul Critically high 1.4-6.5 [facility] Comment on above: Performed By: #### C BC ####[facility] Sctwadqbog[address] [place], [place] [address]DrAdalberto Pulliam Neutrophils/100 WBC (Bld) 71.2 % Normal 43.0-75.0 [facility] Comment on above: Performed By: #### C BC ####[facility] Pkawyhfcne[address] [place], [place] [address]DrAdalberto Pulliam Platelet mean volume (Bld) [Entitic vol] 8.9 fL Critically low 9.5-13.5 [facility] Comment on above: Performed By: #### C BC ####[facility] Dtiwmbqgtg[address] [place], [place] [address]DrAdalberto Pulliam PLT 217 103/ul Normal 150-450 [facility] Comment on above: Performed By: #### C BC ####[facility] Npleezylxf3500 [place] [address]Dr. Garima Heraclio RBC 5.02 106/ul Normal 4.70-6.10 [facility] Comment on above: Performed By: #### C BC ####[facility] Krjgapqplu[address] [place], [place] [address]Dr. Garima Pulliam WBC 9.8 103/ul Normal 4.0-11.0 [facility] Comment on above: Performed By: #### C BC ####[facility] Ilbruygsfd[address] [place], [place] [address]Dr. Garima Heraclio CRPon 03-18-2023 CRP 0.1 mg/dL Normal <=1.0 [facility] Comment on above: Performed By: #### C RP ####[facility] Nymmeebtgf[address] [place], [place] [address]Dr. Garima Heraclio PROF CHEM 8 (BAS METB)on Anion gap [Moles/Vol] 10.4 mmol/L Normal [facility] Comment on above: Performed By: #### B LAMBSKIN TRIMMER, BMP ####[facility] Ploxdlxqdo[address] [place], [place] [address]Dr. Garima Heraclio Calcium [Mass/Vol] 8.8 mg/dL Normal 8.5-10.1 [facility] Comment on above: Performed By: #### B LAMBSKIN TRIMMER, BMP ####[facility] Jzorjkrdhq[address] [place], [place] [address]Dr. Garima Heraclio Chloride [Moles/Vol] 97 mmol/L Critically low 98-107 [facility] Comment on above: Performed By: #### B LAMBSKIN TRIMMER, BMP ####[facility] Oqxxjgxsyp[address] [place], [place] [address]Dr. Gariam Pulliam CO2 [Moles/Vol] 31.2 mmol/L Normal 21.0-32.0 [facility] Comment on above: Performed By: #### B LAMBSKIN TRIMMER, BMP ####[facility] Dyuajhkcqx214[address] [place], [place] [address]Dr. Garima Pulliam Creatinine [Mass/Vol] 0.91 mg/dL Normal 0.70-1.30 [facility] Comment on above: Performed By: #### B LAMBSKIN TRIMMER, BMP ####[facility] Tmvsfslcjj4481 [place] [address]Dr. Garima Pulliam EGFR-AF MACEDONIAN >60 Normal >=60 [facility] Comment on above: Performed By: #### B LAMBSKIN TRIMMER, BMP ####[facility] Qxhtxutjwn8033 [place] [id number]. Garima Pulliam EGFR-NON AF MACEDONIAN >60 Normal >=60 [facility] Comment on above: Performed By: #### B LAMBSKIN TRIMMER, BMP ####[facility] Seaaggzmdb1768 [place] [address]Dr. Garima Pulliam Glucose [Mass/Vol] 315 mg/dL Critically high 74-106 [facility] Comment on above: Performed By: #### B LAMBSKIN TRIMMER, BMP ####[facility] Nvypfsijou2923 [place] [address]Dr. Garima Pulliam Potassium [Moles/Vol] 3.6 mmol/L Normal 3.5-5.1 [facility] Comment on above: Performed By: #### B LAMBSKIN TRIMMER, BMP ####[facility] Bwgaenzjho7461 [place] [address]Dr. Garima Pulliam Sodium [Moles/Vol] 135 mmol/L Critically low 136-145 [facility] Comment on above: Performed By: #### B LAMBSKIN TRIMMER, BMP ####[facility] Gqotnpbgvu8151 [place] [address]Dr. Garima Pulliam Urea nitrogen [Mass/Vol] 7.0 mg/dL Normal 7.0-18.0 [facility] Comment on above: Performed By: #### B LAMBSKIN TRIMMER, BMP ####[facility] Iogoeqvtmr9080 [place] [address]Dr. Garima Pulliam Urea nitrogen/Creatinine [Mass ratio] 7.7 mg/mg Normal [facility] Comment on above: Performed By: #### B LAMBSKIN TRIMMER, BMP ####[facility] Qtrikavsrj1222 [place] [address]Dr. Garima Pulliam SED RATE WESTERGRENon 2022 SED RATE 8 mm/hr Normal <=20 [facility] Comment on above: Performed By: #### S EDR ####[facility] Bnvcjrrptp[address] [place], [place] [address]Dr. Garima Pulliam BNPon 03-16-2023 Natriuretic peptide B (Bld) [Mass/Vol] 241.0 pg/mL Normal <=900.0 [facility] Comment on above: Performed By: #### B LAMBSKIN TRIMMER, BMP, HSTROPN ####[facility] Aqhbyghmno[address] [place], [place] [address]Dr. Garima Heraclio CBC AUTO DIFFon 03-16-2023 BASO # 0.0 103/ul Normal 0.0-0.1 [facility] Comment on above: Performed By: #### C BC ####[facility] Uilyvvtsjl[address] [place], [place] [address]Dr. Chapisrenu Pulliam Basophils/100 WBC (Bld) 0.2 % Normal 0.2-2.0 [facility] Comment on above: Performed By: #### C BC ####[facility] Najymosutl[address] [place], [place] [address]Dr. Garima Pulliam EO # 0.2 103/ul Normal 0.0-0.7 [facility] Comment on above: Performed By: #### C BC ####[facility] Yarcxpgzxk[address] [place], [place] [address]Dr. Chapisrenu Pulliam Eosinophils/100 WBC (Bld) 2.7 % Normal 0.9-7.0 [facility] Comment on above: Performed By: #### C BC ####[facility] Qdadqanmze[address] [place], [place] [address]Dr. Garima Pulliam Erythrocyte distribution width (RBC) [Ratio] 13.1 % Normal 11.0-15.0 [facility] Comment on above: Performed By: #### C BC ####[facility] Sxkwbskfud[address] [place], [place] [address]Dr. Garima Pulliam Hematocrit (Bld) [Volume fraction] 41.8 % Critically low 42.0-54.0 [facility] Comment on above: Performed By: #### C BC ####[facility] Jidfzfgxye6954 [place] [address]Dr. Garima Pulliam Hemoglobin (Bld) [Mass/Vol] 14.0 g/dL Normal 14.0-18.0 [facility] Comment on above: Performed By: #### C BC ####[facility] Edklkffemi7250 [place] [address]Dr. Garima Pulliam IG # 0.03 10e3/ul Normal 0.00-0.03 [facility] Comment on above: Performed By: #### C BC ####[facility] Jjixiwpeoe4447 [place] [address]Dr. Garima Pulliam IG % 0.3 % Normal 0.0-0.5 [facility] Comment on above: Performed By: #### C BC ####[facility] Sqflkombhh[address] [place], [place] [address]Dr. Chapisrenu Pulliam LYMPH # 2.1 103/ul Normal 1.2-3.8 [facility] Comment on above: Performed By: #### C BC ####[facility] [address]jsocxfdo[address] [place], [place] [address]Dr. Chapisrenu Pulliam Lymphocytes/100 WBC (Bld) 24.2 % Normal 20.5-60.0 [facility] Comment on above: Performed By: #### C BC ####[facility] Gmwztlmsoi0199 [place] [address]Dr. Garima Pulliam MANUAL DIFF REQ NO Normal [facility] Comment on above: Performed By: #### C BC ####[facility] Pnammeergi0058 [place] [address]Dr. Garima Pulliam MCH (RBC) [Entitic mass] 30.2 pg Normal 25.9-34.0 [facility] Comment on above: Performed By: #### C BC ####[facility] Ivkhztcxkk1235 [place] [address]Dr. Garima Pulliam MCHC (RBC) [Mass/Vol] 33.5 g/dL Normal 29.9-35.2 [facility] Comment on above: Performed By: #### C BC ####[facility] Fvnc[address]vpx[address] [place] [id number]. Garima Pulliam MCV (RBC) [Entitic vol] 90.1 fL Normal 80.0-94.0 [facility] Comment on above: Performed By: #### C BC ####[facility] Wixxtrmhfh76[address] [place] [id number]. Garima Pulliam MONO # 0.6 103/ul Normal 0.3-0.8 [facility] Comment on above: Performed By: #### C BC ####[facility] Wrlcjkzyrd20[address] [place] [address]Dr. Garima Heraclio Monocytes/100 WBC (Bld) 7.4 % Normal 1.7-12.0 [facility] Comment on above: Performed By: #### C BC ####[facility] Axpnkrhg[address] [place], [place] [address]Dr. Garima Pulliam NEUT # 5.6 103/ul Normal 1.4-6.5 [facility] Comment on above: Performed By: #### C BC ####[facility] Jvxnhasmcj[address] [place], [place] [address]Dr. Garima Heraclio Neutrophils/100 WBC (Bld) 65.2 % Normal 43.0-75.0 [facility] Comment on above: Performed By: #### C BC ####[facility] Ugkyiekbfq8881 [place] [id number]. Garima Heraclio Platelet mean volume (Bld) [Entitic vol] 8.7 fL Critically low 9.5-13.5 [facility] Comment on above: Performed By: #### C BC ####[facility] Wzjiopvixi[address] [place], [place] [address]Dr. Garima Heraclio PLT 195 103/ul Normal 150-450 [facility] Comment on above: Performed By: #### C BC ####[facility] Jnnxyqznvw[address] [place] [phone]. Garima Pulliam RBC 4.64 106/ul Critically low 4.70-6.10 [facility] Comment on above: Performed By: #### C BC ####[facility] Rqgzllyybi86[address] [place] [address]Dr. Garima Pulliam WBC 8.6 103/ul Normal 4.0-11.0 [facility] Comment on above: Performed By: #### C BC ####[facility] Cssqlggxax7[address] [place] [address]Dr. Garima Pulliam PROF CHEM 8 (BAS METB)on Anion gap [Moles/Vol] 6.7 mmol/L Normal [facility] Comment on above: Performed By: #### B LAMBSKIN TRIMMER, BMP, HSTROPN ####[facility] Fllisanbuz299[address] [place] [address]Dr. Garima Pulliam Calcium [Mass/Vol] 8.8 mg/dL Normal 8.5-10.1 [facility] Comment on above: Performed By: #### B LAMBSKIN TRIMMER, BMP, HSTROPN ####[facility] Fljxtoznnh[address] [place], [place] [address]Dr. Garima Pulliam Chloride [Moles/Vol] 106 mmol/L Normal 98-107 [facility] Comment on above: Performed By: #### B LAMBSKIN TRIMMER, BMP, HSTROPN ####[facility] Fqrbotujfd[address] [place], [place] [address]Dr. Garima Pulliam CO2 [Moles/Vol] 31.4 mmol/L Normal 21.0-32.0 [facility] Comment on above: Performed By: #### B LAMBSKIN TRIMMER, BMP, HSTROPN ####[facility] Qygupidgju7[address] [place], [place] [address]Dr. Garima Pulliam Creatinine [Mass/Vol] 0.75 mg/dL Normal 0.70-1.30 [facility] Comment on above: Performed By: #### B LAMBSKIN TRIMMER, BMP, HSTROPN ####[facility] Vtrtkisvyd[address] [place] [address]Dr. Garima Pulliam EGFR-AF MACEDONIAN >60 Normal >=60 [facility] Comment on above: Performed By: #### B LAMBSKIN TRIMMER, BMP, HSTROPN ####[facility] Zripuwhlxr9194 [place] [address]Dr. Garima Pulliam EGFR-NON AF MACEDONIAN >60 Normal >=60 [facility] Comment on above: Performed By: #### B LAMBSKIN TRIMMER, BMP, HSTROPN ####[facility] Rmygpbswyn7221 [place] [address]Dr. Garima Pulliam Glucose [Mass/Vol] 161 mg/dL Critically high 74-106 [facility] Comment on above: Performed By: #### B LAMBSKIN TRIMMER, BMP, HSTROPN ####[facility] Hxwkqgmmyz1890 [place] [address]Dr. Garima Pulliam Potassium [Moles/Vol] 4.1 mmol/L Normal 3.5-5.1 [facility] Comment on above: Performed By: #### B LAMBSKIN TRIMMER, BMP, HSTROPN ####[facility] Lkrvztjifa1714 [place] [address]Dr. Garima Pulliam Sodium [Moles/Vol] 140 mmol/L Normal 136-145 [facility] Comment on above: Performed By: #### B LAMBSKIN TRIMMER, BMP, HSTROPN ####[facility] Guyzkcljua5639 [place] [address]Dr. Garima Pulilam Urea nitrogen [Mass/Vol] 7.0 mg/dL Normal 7.0-18.0 [facility] Comment on above: Performed By: #### B LAMBSKIN TRIMMER, BMP, HSTROPN ####[facility] Qritcjvzas7994 [place] [address]Dr. Garima Pulliam Urea nitrogen/Creatinine [Mass ratio] 9.3 mg/mg Normal [facility] Comment on above: Performed By: #### B LAMBSKIN TRIMMER, BMP, HSTROPN ####[facility] Mngxewqdcr2832 [place] [address]Dr. Garima Pulliam TROPONIN, HIGH SENSITIVITYon 03-16-2023 HSTROP 9.7 pg/mL Normal 4.0-76.1 [facility] Comment on above: Result Comment: CUT- OFF POINTS HAVE BEEN ESTABLISHED BASED ON THE FOURTH UNIVERSAL DEFINITIONS OF MYOCARDIALINFARCTION. THE UPPER REFERENCE LIMIT (URL) OF TROPONIN, DEFINED THE 99TH PERCENTILE OFcTnI DISTRIBUTION IN A REFERENCE POPULATION, HAS BEEN CONFIRMED THE DECISION THRESHOLDFOR OR DIAGNOSIS. Performed By: #### B LAMBSKIN TRIMMER, BMP, HSTROPN ####[facility] Meqdtxrjis6086 [place] [address]Dr. Garima Pulliam XR CHEST 1 Von 03-16-2023 XR CHEST 1 V Normal [facility] BNPon 03-06-2023 Natriuretic peptide B (Bld) [Mass/Vol] 111.0 pg/mL Normal <=900.0 [facility] Comment on above: Performed By: #### C MP, BNP, CK ####[facility] Nqlfzcllhc7732 [place] [address]Dr. Chapisrenu Pulliam CBC AUTO DIFFon 03-06-2023 BASO # 0.0 103/ul Normal 0.0-0.1 [facility] Comment on above: Performed By: #### C BC ####[facility] Wdutzpjbwx[address] [place], [place] [address]Dr. Garima Pulliam Basophils/100 WBC (Bld) 0.2 % Normal 0.2-2.0 [facility] Comment on above: Performed By: #### C BC ####[facility] Vkqzcozvkl[address] [place], [place] [address]Dr. Garima Pulliam EO # 0.3 103/ul Normal 0.0-0.7 [facility] Comment on above: Performed By: #### C BC ####[facility] Okrxoloqih[address] [place], [place] [address]Dr. Garima Pulliam Eosinophils/100 WBC (Bld) 3.5 % Normal 0.9-7.0 [facility] Comment on above: Performed By: #### C BC ####[facility] Yuktuasagq[address] [place], [place] [address]Dr. Garima Pulliam Erythrocyte distribution width (RBC) [Ratio] 13.3 % Normal 11.0-15.0 [facility] Comment on above: Performed By: #### C BC ####[facility] Yvzqdjyhco[address] [place], [place] [address]Dr. Garima Pulliam Hematocrit (Bld) [Volume fraction] 43.7 % Normal 42.0-54.0 [facility] Comment on above: Performed By: #### C BC ####[facility] Uallwkkmfa8824 [place] [address]Dr. Garima Pulliam Hemoglobin (Bld) [Mass/Vol] 14.7 g/dL Normal 14.0-18.0 [facility] Comment on above: Performed By: #### C BC ####[facility] Ctjhaxefsk4111 [place] [address]Dr. Chapisrenu Heraclio IG # 0.03 10e3/ul Normal 0.00-0.03 [facility] Comment on above: Performed By: #### C BC ####[facility] Kuhxhprxog[address] [place], [place] [address]Dr. Garima Pulliam IG % 0.4 % Normal 0.0-0.5 [facility] Comment on above: Performed By: #### C BC ####[facility] Dncbtrfyyv[address] [place], [place] [address]Dr. Garima Pulliam LYMPH # 2.0 103/ul Normal 1.2-3.8 [facility] Comment on above: Performed By: #### C BC ####[facility] Iwsjjzfetb[address] [place], [place] [address]DrAdalberto Pulliam Lymphocytes/100 WBC (Bld) 23.7 % Normal 20.5-60.0 [facility] Comment on above: Performed By: #### C BC ####[facility] Cfhtdpvyde6172 [place] [address]Dr. Garima Pulliam MANUAL DIFF REQ NO Normal [facility] Comment on above: Performed By: #### C BC ####[facility] Uaxnfngmom4216 [place] [id number] Pulliam MCH (RBC) [Entitic mass] 30.1 pg Normal 25.9-34.0 [facility] Comment on above: Performed By: #### C BC ####[facility] Orsauaotre22[address] [place] [id number]. Garima Pulliam MCHC (RBC) [Mass/Vol] 33.6 g/dL Normal 29.9-35.2 [facility] Comment on above: Performed By: #### C BC ####[facility] Srfnobxmjd8071 [place] [address]Dr. Garima Heraclio MCV (RBC) [Entitic vol] 89.4 fL Normal 80.0-94.0 [facility] Comment on above: Performed By: #### C BC ####[facility] Amigvwpqtf6237 [place] [address]Dr. Garima Pulliam MONO # 0.8 103/ul Normal 0.3-0.8 [facility] Comment on above: Performed By: #### C BC ####[facility] Rsouwhpzoa8430 [place] [address]Dr. Garima Pulliam Monocytes/100 WBC (Bld) 9.0 % Normal 1.7-12.0 [facility] Comment on above: Performed By: #### C BC ####[facility] Uumtdeeidq[address] [place], [place] [address]Dr. Garima Pulliam NEUT # 5.4 103/ul Normal 1.4-6.5 [facility] Comment on above: Performed By: #### C BC ####[facility] Uzgszqqbnt[address] [place], [place] [address]Dr. Garima Pulliam Neutrophils/100 WBC (Bld) 63.2 % Normal 43.0-75.0 [facility] Comment on above: Performed By: #### C BC ####[facility] Jjnileojjs8[address] [place], [place] [address]Dr. Garima Pulliam Platelet mean volume (Bld) [Entitic vol] 9.0 fL Critically low 9.5-13.5 [facility] Comment on above: Performed By: #### C BC ####[facility] Zoycbfgvvb[address] [place], [place] [address]Dr. Garima Pulliam PLT 218 103/ul Normal 150-450 [facility] Comment on above: Performed By: #### C BC ####[facility] Uvqjqmrfpm9225 [place] [phone]. Garima Pulliam RBC 4.89 106/ul Normal 4.70-6.10 [facility] Comment on above: Performed By: #### C BC ####[facility] Usrabgumbc0823 [place] [address]Dr. Garima Pulliam WBC 8.5 103/ul Normal 4.0-11.0 [facility] Comment on above: Performed By: #### C BC ####[facility] Ormbmtcsoh9032 [place] [address]Dr. Garima Pulliam CPKon 03-06-2023 CK [Catalytic activity/Vol] 191 U/L Normal 39-308 [facility] Comment on above: Performed By: #### C MP, BNP, CK ####[facility] Cxbmimcxyp0377 [place] [address]Dr. Garima Pulliam PROF 14(COMP METB)on 023 Albumin [Mass/Vol] 3.6 g/dL Normal 3.4-5.0 [facility] Comment on above: Performed By: #### C MP, BNP, CK ####[facility] Anerqmoecl5182 [place] [address]Dr. Garima Pulliam Albumin/Globulin [Mass ratio] 1.2 {ratio} Normal [facility] Comment on above: Performed By: #### C MP, BNP, CK ####[facility] Ipndprgmft3660 [place] [address]Dr. Garima Pulliam ALP [Catalytic activity/Vol] 91 U/L Normal 46-116 [facility] Comment on above: Performed By: #### C MP, BNP, CK ####[facility] Hulukvizkf2605 [place] [address]Dr. Gairma Pulliam ALT [Catalytic activity/Vol] 33 U/L Normal 16-63 [facility] Comment on above: Performed By: #### C MP, BNP, CK ####[facility] Otgvdzkiwj0213 [place] [address]Dr. Garima Pulliam Anion gap [Moles/Vol] 10.3 mmol/L Normal [facility] Comment on above: Performed By: #### C MP, BNP, CK ####[facility] Tovxvxiool0547 [place] [address]Dr. Garima Pulliam AST [Catalytic activity/Vol] 17 U/L Normal 15-37 [facility] Comment on above: Performed By: #### C MP, BNP, CK ####[facility] Gdblvgzbdw3379 [place] [address]Dr. Garima Pulilam Bilirubin [Mass/Vol] 0.4 mg/dL Normal 0.2-1.0 [facility] Comment on above: Performed By: #### C MP, BNP, CK ####[facility] Ammrkrbcfx5451 [place] [address]Dr. Garima Pulliam Calcium [Mass/Vol] 9.1 mg/dL Normal 8.5-10.1 [facility] Comment on above: Performed By: #### C MP, BNP, CK ####[facility] Crsftbkvcl2174 [place] [address]Dr. Garima Pulliam Chloride [Moles/Vol] 102 mmol/L Normal 98-107 [facility] Comment on above: Performed By: #### C MP, BNP, CK ####[facility] Gngpyrvjpp0681 [place] [address]Dr. Garima Pulliam CO2 [Moles/Vol] 29.7 mmol/L Normal 21.0-32.0 [facility] Comment on above: Performed By: #### C MP, BNP, CK ####[facility] Gdgbivfwzi2445 [place] [address]Dr. Garima Pulliam Creatinine [Mass/Vol] 0.79 mg/dL Normal 0.70-1.30 [facility] Comment on above: Performed By: #### C MP, BNP, CK ####[facility] Pvftuqdvcy1371 [place] [address]Dr. Garima Pulliam EGFR-AF MACEDONIAN >60 Normal >=60 [facility] Comment on above: Performed By: #### C MP, BNP, CK ####[facility] Eoebixzzug9098 [place] [address]Dr. Garima Pulliam EGFR-NON AF MACEDONIAN >60 Normal >=60 [facility] Comment on above: Performed By: #### C MP, BNP, CK ####[facility] Nuxarhhanu4289 [place] [address]Dr. Garima Pulliam Globulin (S) [Mass/Vol] 3.0 g/dL Normal [facility] Comment on above: Performed By: #### C MP, BNP, CK ####[facility] Xboyaiybdx8000 [place] [address]Dr. Garima Pulliam Glucose [Mass/Vol] 202 mg/dL Critically high 74-106 [facility] Comment on above: Performed By: #### C MP, BNP, CK ####[facility] Fcappcpvpq3468 [place] [address]Dr. Garima Pulliam Potassium [Moles/Vol] 4.0 mmol/L Normal 3.5-5.1 [facility] Comment on above: Performed By: #### C MP, BNP, CK ####[facility] Uxrqbtetzh9344 [place] [address]Dr. Garima Pulliam Protein [Mass/Vol] 6.6 g/dL Normal 6.4-8.2 [facility] Comment on above: Performed By: #### C MP, BNP, CK ####[facility] Usvqjhchuq[address] [place], [place] [address]Dr. Garima Pulliam Sodium [Moles/Vol] 138 mmol/L Normal 136-145 [facility] Comment on above: Performed By: #### C MP, BNP, CK ####[facility] Vixinycvgr[address] [place], [place] [address]Dr. Garima Pulliam Urea nitrogen [Mass/Vol] 10.0 mg/dL Normal 7.0-18.0 [facility] Comment on above: Performed By: #### C MP, BNP, CK ####[facility] Bhhvjcuyjl2991 [place] [address]Dr. Garima Pulliam Urea nitrogen/Creatinine [Mass ratio] 12.7 mg/mg Normal [facility] Comment on above: Performed By: #### C MP, BNP, CK ####[facility] Udgesbevrt9881 [place] [address]Dr. Garima Pulliam US VERONICA DOP LEG BILon 023 US VERONICA DOP LEG BENOIT Normal [facility] CBC AUTO DIFFon 01-13-2023 BASO # 0.0 103/ul Normal 0.0-0.1 [facility] Comment on above: Performed By: #### C BC ####[facility] Rqrzmflple2574 [place] [id number]. Chapisrenu Pulliam Basophils/100 WBC (Bld) 0.0 % Critically low 0.2-2.0 [facility] Comment on above: Performed By: #### C BC ####[facility] Rdbamujxwg3042 [place] [address]Dr. Garima Pulliam EO # 0.0 103/ul Normal 0.0-0.7 [facility] Comment on above: Performed By: #### C BC ####[facility] Ouusmixpea[address] [place], [place] [address]Dr. Garima Pulliam Eosinophils/100 WBC (Bld) 0.0 % Critically low 0.9-7.0 [facility] Comment on above: Performed By: #### C BC ####[facility] Jxnjjagsfs5232 [place] [address]Dr. Garima Pulliam Erythrocyte distribution width (RBC) [Ratio] 13.2 % Normal 11.0-15.0 [facility] Comment on above: Performed By: #### C BC ####[facility] Bkulojvbkj[address] [place], [place] [address]Dr. Garima Pulliam Hematocrit (Bld) [Volume fraction] 46.7 % Normal 42.0-54.0 [facility] Comment on above: Performed By: #### C BC ####[facility] Oeiwalgqvp[address] [place], [place] [address]Dr. Garima Pulliam Hemoglobin (Bld) [Mass/Vol] 15.6 g/dL Normal 14.0-18.0 [facility] Comment on above: Performed By: #### C BC ####[facility] Hadrdiarui[address] [place], [place] [address]Dr. Garima Pulliam IG # 0.01 10e3/ul Normal 0.00-0.03 [facility] Comment on above: Performed By: #### C BC ####[facility] Wxvmjgdxkw3819 [place] [id number]. Garima Pulliam IG % 0.2 % Normal 0.0-0.5 [facility] Comment on above: Performed By: #### C BC ####[facility] Qjykibkcdg7033 [place] [id number]. Garima Pulliam LYMPH # 0.8 103/ul Critically low 1.2-3.8 [facility] Comment on above: Performed By: #### C BC ####[facility] Bpjfdsxscp2774 [place] [phone]. Garima Pulliam Lymphocytes/100 WBC (Bld) 12.7 % Critically low 20.5-60.0 [facility] Comment on above: Performed By: #### C BC ####[facility] Mvtepesubh2519 [place] [address]Dr. Garima Pulliam MANUAL DIFF REQ NO Normal [facility] Comment on above: Performed By: #### C BC ####[facility] Lqnczayvsk1124 [place] [id number]. Garima Pulliam MCH (RBC) [Entitic mass] 30.2 pg Normal 25.9-34.0 [facility] Comment on above: Performed By: #### C BC ####[facility] Jxxpanuoik9699 [place] [id number]. Garima Pulliam MCHC (RBC) [Mass/Vol] 33.4 g/dL Normal 29.9-35.2 [facility] Comment on above: Performed By: #### C BC ####[facility] Kqeoedjhvj5881 [place] [id number]. Garima Pulliam MCV (RBC) [Entitic vol] 90.3 fL Normal 80.0-94.0 [facility] Comment on above: Performed By: #### C BC ####[facility] Xjuuiobbzg0833 [place] [id number]. Garima Heraclio MONO # 0.1 103/ul Critically low 0.3-0.8 [facility] Comment on above: Performed By: #### C BC ####[facility] Xbnuqiyrcr4409 [place] [id number]. Garima Pulliam Monocytes/100 WBC (Bld) 0.9 % Critically low 1.7-12.0 [facility] Comment on above: Performed By: #### C BC ####[facility] Mnlhdnmerr3199 [place] [id number]. Garima Pulliam NEUT # 5.6 103/ul Normal 1.4-6.5 [facility] Comment on above: Performed By: #### C BC ####[facility] Jlwbwxposq9001 [place] [id number]. Garima Pulliam Neutrophils/100 WBC (Bld) 86.2 % Critically high 43.0-75.0 [facility] Comment on above: Performed By: #### C BC ####[facility] Tfdtzzrnkg8893 [place] [address]Dr. Garima Pulliam Platelet mean volume (Bld) [Entitic vol] 9.1 fL Critically low 9.5-13.5 [facility] Comment on above: Performed By: #### C BC ####[facility] Seugfqpmay[address] [place], [place] [address]Dr. Garima Pulliam PLT 169 103/ul Normal 150-450 [facility] Comment on above: Performed By: #### C BC ####[facility] Jktsqsfblp[address] [place], [place] [address]Dr. Garima Pulliam RBC 5.17 106/ul Normal 4.70-6.10 [facility] Comment on above: Performed By: #### C BC ####[facility] Gqujvbksdw[address] [place], [place] [address]Dr. Garima Pulliam WBC 6.5 103/ul Normal 4.0-11.0 [facility] Comment on above: Performed By: #### C BC ####[facility] Ixnzwwskgo[address] [place], [place] [address]Dr. Garima Pulliam D-DIMERon 01-13-2023 D-DIMER 0.41 mg/L FEU Normal <=0.59 [facility] Comment on above: Performed By: #### D DIM ####[facility] Yykqqusdcc0893 [place] [address]Dr. Garima Pulliam D-DIMER COMMENTS SEE BELOW Normal [facility] Comment on [...] generalized hospitalization. Performed By: #### D DIM ####[facility] Zyhwbrvozs[address] [place], [place] [address]Dr. Garima Pulliam PROF 14(COMP METB)on 023 Albumin [Mass/Vol] 3.4 g/dL Normal 3.4-5.0 [facility] Comment on above: Performed By: #### C MP ####[facility] Funitjvlno[address] [place], [place] [address]Dr. Garima Pulliam Albumin/Globulin [Mass ratio] 1.3 {ratio} Normal [facility] Comment on above: Performed By: #### C MP ####[facility] Uwuucflzzb[address] [place], [place] [address]Dr. Garima Pulliam ALP [Catalytic activity/Vol] 83 U/L Normal 46-116 [facility] Comment on above: Performed By: #### C MP ####[facility] Ovaxswunka82[address] [place], [place] [address]Dr. Garima Pulliam ALT [Catalytic activity/Vol] 25 U/L Normal 16-63 [facility] Comment on above: Performed By: #### C MP ####[facility] Vekofvqovh5463 [place] [address]Dr. Garima Pulliam Anion gap [Moles/Vol] 14.5 mmol/L Normal [facility] Comment on above: Performed By: #### C MP ####[facility] Yynviuzukc7[address] [place], [place] [address]Dr. Garima Pulliam AST [Catalytic activity/Vol] 19 U/L Normal 15-37 [facility] Comment on above: Performed By: #### C MP ####[facility] Yysdhbxbsu[address] [place], [place] [address]Dr. Garima Pulliam Bilirubin [Mass/Vol] 0.4 mg/dL Normal 0.2-1.0 [facility] Comment on above: Performed By: #### C MP ####[facility] Qteqmjbbjo[address] [place], [place] [address]Dr. Garima Pulliam Calcium [Mass/Vol] 8.7 mg/dL Normal 8.5-10.1 [facility] Comment on above: Performed By: #### C MP ####[facility] Jqjjyydjbx[address] [place], [place] [address]Dr. Garima Pulliam Chloride [Moles/Vol] 104 mmol/L Normal 98-107 [facility] Comment on above: Performed By: #### C MP ####[facility] Hewnyudroi[address] [place], [place] [address]Dr. Garima Pulliam CO2 [Moles/Vol] 24.5 mmol/L Normal 21.0-32.0 [facility] Comment on above: Performed By: #### C MP ####[facility] Zczulabaxh[address] [place], [place] [address]Dr. Garima Pulliam Creatinine [Mass/Vol] 0.70 mg/dL Normal 0.70-1.30 [facility] Comment on above: Performed By: #### C MP ####[facility] Knagbxalbh[address] [place], [place] [address]Dr. Garima Heraclio EGFR-AF MACEDONIAN >60 Normal >=60 [facility] Comment on above: Performed By: #### C MP ####[facility] Wobnfdopti[address] [place], [place] [address]Dr. Chapisrenu Heraclio EGFR-NON AF MACEDONIAN >60 Normal >=60 [facility] Comment on above: Performed By: #### C MP ####[facility] Oaiobsrriw96[address] [place], [place] [address]Dr. Chapisrenu Pulliam Globulin (S) [Mass/Vol] 2.6 g/dL Normal [facility] Comment on above: Performed By: #### C MP ####[facility] Tuncruwuxi6636 [place] [address]Dr. Garima Pulliam Glucose [Mass/Vol] 196 mg/dL Critically high 74-106 [facility] Comment on above: Performed By: #### C MP ####[facility] Fybngtcqgi1604 [place] [address]Dr. Garima Pulliam Potassium [Moles/Vol] 4.0 mmol/L Normal 3.5-5.1 [facility] Comment on above: Performed By: #### C MP ####[facility] Zpuieqvorh3402 [place] [address]Dr. Garima Pulliam Protein [Mass/Vol] 6.0 g/dL Critically low 6.4-8.2 [facility] Comment on above: Performed By: #### C MP ####[facility] Xkhqrhtkne[address] [place], [place] [address]Dr. Garima Pulliam Sodium [Moles/Vol] 139 mmol/L Normal 136-145 [facility] Comment on above: Performed By: #### C MP ####[facility] Stiwhlywim[address] [place], [place] [address]Dr. Garima Pulliam Urea nitrogen [Mass/Vol] 7.0 mg/dL Normal 7.0-18.0 [facility] Comment on above: Performed By: #### C MP ####[facility] Coyylivosd[address] [place], [place] [address]Dr. Garima Heraclio Urea nitrogen/Creatinine [Mass ratio] 10.0 mg/mg Normal [facility] Comment on above: Performed By: #### C MP ####[facility] [address] [place], [place] [address]Dr. Garima Heraclio BNPon 01-12-2023 Natriuretic peptide B (Bld) [Mass/Vol] 141.0 pg/mL Normal <=900.0 [facility] Comment on above: Performed By: #### C MP, BNP, HSTROPN ####[facility] Wrqelk[address] [place], [place] [address]Dr. Garima Heraclio CBC AUTO DIFFon 01-12-2023 BASO # 0.0 103/ul Normal 0.0-0.1 [facility] Comment on above: Performed By: #### C BC ####[facility] Wxjajighic[address] [place] [id number]. Garima Heraclio Basophils/100 WBC (Bld) 0.2 % Normal 0.2-2.0 [facility] Comment on above: Performed By: #### C BC ####[facility] Dcrltsdxbp[address] [place] [address]Dr. Garima Heraclio EO # 0.2 103/ul Normal 0.0-0.7 [facility] Comment on above: Performed By: #### C BC ####[facility] Lpcgmdifvw9[address] [place] [address]Dr. Garima Heraclio Eosinophils/100 WBC (Bld) 2.7 % Normal 0.9-7.0 [facility] Comment on above: Performed By: #### C BC ####[facility] [address]vq[address] [place], [place] [address]Dr. Garima Pulliam Erythrocyte distribution width (RBC) [Ratio] 13.3 % Normal 11.0-15.0 [facility] Comment on above: Performed By: #### C BC ####[facility] Epfmasqbkq[address] [place], [place] [address]Dr. Garima Pulliam Hematocrit (Bld) [Volume fraction] 42.3 % Normal 42.0-54.0 [facility] Comment on above: Performed By: #### C BC ####[facility] [address]we[address] [place], [place] [address]Dr. Garima Pulliam Hemoglobin (Bld) [Mass/Vol] 14.3 g/dL Normal 14.0-18.0 [facility] Comment on above: Performed By: #### C BC ####[facility] Y[address] [place], [place] [address]Dr. Garima Pulliam IG # 0.02 10e3/ul Normal 0.00-0.03 [facility] Comment on above: Performed By: #### C BC ####[facility] Menikeduei[address] [place] [id number]. Garima Pulliam IG % 0.2 % Normal 0.0-0.5 [facility] Comment on above: Performed By: #### C BC ####[facility] Kwvqedxbmb[address] [place] [phone]. Garima Pulliam LYMPH # 2.6 103/ul Normal 1.2-3.8 [facility] Comment on above: Performed By: #### C BC ####[facility] Ppxfwzrizj0680 [place] [id number]. Garima Heraclio Lymphocytes/100 WBC (Bld) 29.6 % Normal 20.5-60.0 [facility] Comment on above: Performed By: #### C BC ####[facility] Trukkbqdgg[address] [place] [address]Dr. Garima Heraclio MANUAL DIFF REQ NO Normal [facility] Comment on above: Performed By: #### C BC ####[facility] Jmmcbyjwcy1405 [place] [phone]. Garima Pulliam MCH (RBC) [Entitic mass] 30.2 pg Normal 25.9-34.0 [facility] Comment on above: Performed By: #### C BC ####[facility] Yvrrxqzxvz8079 [place] [address]Dr. Garima Pulliam MCHC (RBC) [Mass/Vol] 33.8 g/dL Normal 29.9-35.2 [facility] Comment on above: Performed By: #### C BC ####[facility] Etfupziggs1825 [place] [phone]. Garima Pulliam MCV (RBC) [Entitic vol] 89.2 fL Normal 80.0-94.0 [facility] Comment on above: Performed By: #### C BC ####[facility] Bovactoznd[address] [place], [place] [address]Dr. Chapisrenu Pulliam MONO # 0.7 103/ul Normal 0.3-0.8 [facility] Comment on above: Performed By: #### C BC ####[facility] Zuqamrndbe3690 [place] [phone]. Garima Pulliam Monocytes/100 WBC (Bld) 8.3 % Normal 1.7-12.0 [facility] Comment on above: Performed By: #### C BC ####[facility] Bjlnieliqy0552 [place] [phone]. Garima Pulliam NEUT # 5.1 103/ul Normal 1.4-6.5 [facility] Comment on above: Performed By: #### C BC ####[facility] Yuppodilqa4450 [place] [phone]. Garima Pulliam Neutrophils/100 WBC (Bld) 59.0 % Normal 43.0-75.0 [facility] Comment on above: Performed By: #### C BC ####[facility] Trahmcgzvv6114 [place] [address]Dr. Garima Pulliam Platelet mean volume (Bld) [Entitic vol] 8.7 fL Critically low 9.5-13.5 [facility] Comment on above: Performed By: #### C BC ####[facility] Epjicmushb2034 [place] [address]Dr. Garima Pulliam PLT 182 103/ul Normal 150-450 [facility] Comment on above: Performed By: #### C BC ####[facility] Jcuhsfsfwk3242 [place] [phone]. Garima Pulliam RBC 4.74 106/ul Normal 4.70-6.10 [facility] Comment on above: Performed By: #### C BC ####[facility] Woinmb[address]tyt[address] [place], [place] [address]Dr. Garima Pulliam WBC 8.7 103/ul Normal 4.0-11.0 [facility] Comment on above: Performed By: #### C BC ####[facility] E[address]qmwkedx[address] [place], [place] [address]Dr. Garima Pulliam Covid-19 PCR (CVDTB)on 12-25 SARS-CoV-2 (COVID-19) RNA MARIE+probe Ql (Unsp spec) Not detected Normal NOT DETECTED [facility] Comment on above: Result Comment: When [...] for this test is supported by the [employer] of Health and Human Service's declaration [...] be used). Performed By: #### C VDTBH ####[facility] Gwixkymkav[address] [place] [address]Dr. Garima Pulliam PROF 14(COMP METB)on 023 Albumin [Mass/Vol] 3.6 g/dL Normal 3.4-5.0 [facility] Comment on above: Performed By: #### C MP, BNP, HSTROPN ####[facility] Zrfqvxaxiw9086 [place] [address]Dr. Garima Pulliam Albumin/Globulin [Mass ratio] 1.5 {ratio} Normal [facility] Comment on above: Performed By: #### C MP, BNP, HSTROPN ####[facility] Tsikzuzzzw9673 [place] [address]Dr. Garima Pulliam ALP [Catalytic activity/Vol] 79 U/L Normal 46-116 [facility] Comment on above: Performed By: #### C MP, BNP, HSTROPN ####[facility] Tpicffhuxk3509 [place] [address]Dr. Garima Pulliam ALT [Catalytic activity/Vol] 27 U/L Normal 16-63 [facility] Comment on above: Performed By: #### C MP, BNP, HSTROPN ####[facility] Ykpplwbgnl0238 [place] [address]Dr. Garima Pulliam Anion gap [Moles/Vol] 11.7 mmol/L Normal [facility] Comment on above: Performed By: #### C MP, BNP, HSTROPN ####[facility] Plkvlwaxjl1811 [place] [address]Dr. Garima Pulliam AST [Catalytic activity/Vol] 21 U/L Normal 15-37 [facility] Comment on above: Performed By: #### C MP, BNP, HSTROPN ####[facility] Lxfzpneijs4689 [place] [address]Dr. Garima Pulliam Bilirubin [Mass/Vol] 0.3 mg/dL Normal 0.2-1.0 [facility] Comment on above: Performed By: #### C MP, BNP, HSTROPN ####[facility] Fkcgsxnfgy8291 [place] [address]Dr. Garima Pulliam Calcium [Mass/Vol] 8.9 mg/dL Normal 8.5-10.1 [facility] Comment on above: Performed By: #### C MP, BNP, HSTROPN ####[facility] Pytticvdff4346 [place] [address]Dr. Garima Pulliam Chloride [Moles/Vol] 107 mmol/L Normal 98-107 [facility] Comment on above: Performed By: #### C MP, BNP, HSTROPN ####[facility] Ytzrjequol0868 [place] [address]Dr. Garima Pulliam CO2 [Moles/Vol] 26.0 mmol/L Normal 21.0-32.0 [facility] Comment on above: Performed By: #### C MP, BNP, HSTROPN ####[facility] Jrstpzmvhy2996 [place] [address]Dr. Garima Pulliam Creatinine [Mass/Vol] 0.65 mg/dL Critically low 0.70-1.30 [facility] Comment on above: Performed By: #### C MP, BNP, HSTROPN ####[facility] Vsgihieels9676 [place] [address]Dr. Yilan Pulliam EGFR-AF MACEDONIAN >60 Normal >=60 [facility] Comment on above: Performed By: #### C MP, BNP, HSTROPN ####[facility] Rjhbcywrey7970 [place] [address]Dr. Garima Pulliam EGFR-NON AF MACEDONIAN >60 Normal >=60 [facility] Comment on above: Performed By: #### C MP, BNP, HSTROPN ####[facility] Poyetlpdvs8991 [place] [address]Dr. Garima Pulliam Globulin (S) [Mass/Vol] 2.4 g/dL Normal [facility] Comment on above: Performed By: #### C MP, BNP, HSTROPN ####[facility] Sfjhwo[address]ct[address] [place], [place] [address]Dr. Garima Pulliam Glucose [Mass/Vol] 85 mg/dL Normal 74-106 [facility] Comment on above: Performed By: #### C MP, BNP, HSTROPN ####[facility] Qntjhalyie6420 [place] [address]Dr. Garima Pulliam Potassium [Moles/Vol] 3.7 mmol/L Normal 3.5-5.1 [facility] Comment on above: Performed By: #### C MP, BNP, HSTROPN ####[facility] Amzvbuqnpe6209 [place] [address]Dr. Garima Pulliam Protein [Mass/Vol] 6.0 g/dL Critically low 6.4-8.2 [facility] Comment on above: Performed By: #### C MP, BNP, HSTROPN ####[facility] Jnsxzdhrol9529 [place] [address]Dr. Garima Pulliam Sodium [Moles/Vol] 141 mmol/L Normal 136-145 [facility] Comment on above: Performed By: #### C MP, BNP, HSTROPN ####[facility] Bmkvwdgbaw3788 [place] [address]Dr. Garima Pulliam Urea nitrogen [Mass/Vol] 5.0 mg/dL Critically low 7.0-18.0 [facility] Comment on above: Performed By: #### C MP, BNP, HSTROPN ####[facility] Skthipjhtt2045 [place] [address]Dr. Garima Pulliam Urea nitrogen/Creatinine [Mass ratio] 7.7 mg/mg Normal [facility] Comment on above: Performed By: #### C MP, BNP, HSTROPN ####[facility] Arfucmeggz2617 [place] [address]Dr. Garima Pulliam PROTIMEon 01-12-2023 INR Coag (PPP) [Relative time] 1.16 {INR} Normal [facility] Comment on above: Performed By: #### P TT, PT ####[facility] Wavokbhudh[address] [place] [address]Dr. Garima Pulliam INR GUIDELINES SEE BELOW Normal [facility] Comment on above: Result Comment: WESLEY RED INR: 2.0 - 3.0 CONDITIONS NOT LISTED BELOW 2.5 - 3.5 FOR PROSTHETIC HEART VALVE REPLACEMENT 2.5 - 3.5 RECURRENT THROMBOSIS Performed By: #### P TT, PT ####[facility] Jixweii[address] [place], [place] [address]Dr. Garima Pulliam PT Coag (PPP) [Time] 12.2 s Critically high 9.0-11.6 [facility] Comment on above: Performed By: #### P TT, PT ####[facility] Lnrrwcypmy0194 [place] [address]Dr. Garima Pulliam PTTon 01-12-2023 aPTT Coag (Bld) [Time] 29.1 s Normal 22.3-36.2 [facility] Comment on above: Performed By: #### P TT, PT ####[facility] [address]vqmcm[address] [place], [place] [address]Dr. Garima Pulliam TROPONIN, HIGH SENSITIVITYon 01-12-2023 HSTROP 10.3 pg/mL Normal 4.0-76.1 [facility] Comment on above: Result Comment: CUT- OFF POINTS HAVE BEEN ESTABLISHED BASED ON THE FOURTH UNIVERSAL DEFINITIONS OF MYOCARDIALINFARCTION. THE UPPER REFERENCE LIMIT (URL) OF TROPONIN, DEFINED THE 99TH PERCENTILE OFcTnI DISTRIBUTION IN A REFERENCE POPULATION, HAS BEEN CONFIRMED THE DECISION THRESHOLDFOR OR DIAGNOSIS. Performed By: #### H STROPN ####[facility] Lrsiuhfzdt2503 [place] [address]Dr. Garima Pulliam HSTROP 9.2 pg/mL Normal 4.0-76.1 [facility] Comment on above: Result Comment: CUT- OFF POINTS HAVE BEEN ESTABLISHED BASED ON THE FOURTH UNIVERSAL DEFINITIONS OF MYOCARDIALINFARCTION. THE UPPER REFERENCE LIMIT (URL) OF TROPONIN, DEFINED THE 99TH PERCENTILE OFcTnI DISTRIBUTION IN A REFERENCE POPULATION, HAS BEEN CONFIRMED THE DECISION THRESHOLDFOR OR DIAGNOSIS. Performed By: #### C MP, BNP, HSTROPN ####[facility] Lbsnlhnvew6625 [place] [address]Dr. Garima Pulliam XR CHEST 1 Von 01-12-2023 XR CHEST 1 V Normal [facility] XR CHEST 1 Von 01-01-2023 XR CHEST 1 V Normal [facility] CARDIAC NASH 3-6on 3 CK [Catalytic activity/Vol] 196 U/L Normal 39-308 [facility] Comment on above: Performed By: #### C MREP ####[facility] Duatsqpssj5161 [place] [address]Dr. Garima Pulliam CK.MB [Mass/Vol] 7.41 ng/mL Critically high <=3.60 [facility] Comment on above: Performed By: #### C MREP ####[facility] Kjfdkvycjb2172 [place] [address]Dr. Garima Pulliam HSTROP 10.3 pg/mL Normal 4.0-76.1 [facility] Comment on above: Result Comment: CUT- OFF POINTS HAVE BEEN ESTABLISHED BASED ON THE FOURTH UNIVERSAL DEFINITIONS OF MYOCARDIALINFARCTION. THE UPPER REFERENCE LIMIT (URL) OF TROPONIN, DEFINED THE 99TH PERCENTILE OFcTnI DISTRIBUTION IN A REFERENCE POPULATION, HAS BEEN CONFIRMED THE DECISION THRESHOLDFOR OR DIAGNOSIS. Performed By: #### C MREP ####[facility] Aykdyxtpzx7[address] [place] [phone]. Garima Pulliam XR CHEST 1 Von 12-26-2022 XR CHEST 1 V Normal [facility] BNPon 12-25-2022 Natriuretic peptide B (Bld) [Mass/Vol] 98.0 pg/mL Normal <=900.0 [facility] Comment on above: Performed By: #### B MARVIN FRENCH CMADM ####[facility] Ncythosgbj5592 [place] [address]Dr. Garima Pulliam CARDIAC NASH ADMITon 023 CK [Catalytic activity/Vol] 208 U/L Normal 39-308 [facility] Comment on above: Performed By: #### B MARVIN FRENCH CMADM ####[facility] Mzvmhaqysd4513 [place] [address]Dr. Garima Pulliam CK.MB [Mass/Vol] 7.63 ng/mL Critically high <=3.60 [facility] Comment on above: Performed By: #### B MARVIN FRENCH CMADM ####[facility] Vanrnstqzw[address] [place], [place] [address]Dr. Garima Pulliam HSTROP 8.8 pg/mL Normal 4.0-76.1 [facility] Comment on above: Result Comment: CUT- OFF POINTS HAVE BEEN ESTABLISHED BASED ON THE FOURTH UNIVERSAL DEFINITIONS OF MYOCARDIALINFARCTION. THE UPPER REFERENCE LIMIT (URL) OF TROPONIN, DEFINED THE 99TH PERCENTILE OFcTnI DISTRIBUTION IN A REFERENCE POPULATION, HAS BEEN CONFIRMED THE DECISION THRESHOLDFOR OR DIAGNOSIS. Performed By: #### B MARVIN FRENCH CMADM ####[facility] Dfllaszoyh[address] [place], [place] [address]Dr. Garima Pulliam DORIS 83 ng/mL Normal 16-96 [facility] Comment on above: Performed By: #### B MARVIN FRENCH CMADM ####[facility] Aiftzbfomu[address] [place], [place] [address]Dr. Garima Pulliam CBC AUTO DIFFon 12-25-2022 BASO # 0.0 103/ul Normal 0.0-0.1 [facility] Comment on above: Performed By: #### C BC ####[facility] Gohrqavlhf[address] [place], [place] [address]Dr. Garima Pulliam Basophils/100 WBC (Bld) 0.0 % Critically low 0.2-2.0 [facility] Comment on above: Performed By: #### C BC ####[facility] Jxfuhydzko6896 [place] [address]Dr. Garima Pulliam EO # 0.0 103/ul Normal 0.0-0.7 [facility] Comment on above: Performed By: #### C BC ####[facility] Anjmmserrp40[address] [place], [place] [address]Dr. Garima Pulliam Eosinophils/100 WBC (Bld) 0.7 % Critically low 0.9-7.0 [facility] Comment on above: Performed By: #### C BC ####[facility] Senvguhdep[address] [place], [place] [address]Dr. Garima Pulliam Erythrocyte distribution width (RBC) [Ratio] 13.4 % Normal 11.0-15.0 [facility] Comment on above: Performed By: #### C BC ####[facility] Entmmdnlko[address] [place], [place] [address]Dr. Garima Pulliam Hematocrit (Bld) [Volume fraction] 42.9 % Normal 42.0-54.0 [facility] Comment on above: Performed By: #### C BC ####[facility] Ibbegzvwjl[address] [place], [place] [address]Dr. Garima Pulliam Hemoglobin (Bld) [Mass/Vol] 14.4 g/dL Normal 14.0-18.0 [facility] Comment on above: Performed By: #### C BC ####[facility] Jfthfxgatn[address] [place], [place] [address]Dr. Garima Pulliam IG # 0.00 10e3/ul Normal 0.00-0.03 [facility] Comment on above: Performed By: #### C BC ####[facility] Owyddwfhdg[address] [place], [place] [address]Dr. Garima Pulliam IG % 0.0 % Normal 0.0-0.5 [facility] Comment on above: Performed By: #### C BC ####[facility] Bbtibdnarg[address] [place], [place] [address]Dr. Garima Pulliam LYMPH # 2.4 103/ul Normal 1.2-3.8 [facility] Comment on above: Performed By: #### C BC ####[facility] Rxwlrnbjpk5060 [place] [id number]. Chapisrenu Pulliam Lymphocytes/100 WBC (Bld) 29.2 % Normal 20.5-60.0 [facility] Comment on above: Performed By: #### C BC ####[facility] Mhzaypskrc8221 [place] [id number]. Garima Pulliam MANUAL DIFF REQ NO Normal [facility] Comment on above: Performed By: #### C BC ####[facility] Vdjmgjbihq8360 [place] [phone]. Garima Pulliam MCH (RBC) [Entitic mass] 30.7 pg Normal 25.9-34.0 [facility] Comment on above: Performed By: #### C BC ####[facility] Bcrdzgeyrx90[address] [place], [place] [address]Dr. Garima Pulliam MCHC (RBC) [Mass/Vol] 33.6 g/dL Normal 29.9-35.2 [facility] Comment on above: Performed By: #### C BC ####[facility] [address]angfjwuvz[address] [place], [place] [address]Dr. Garima Pulliam MCV (RBC) [Entitic vol] 91.5 fL Normal 80.0-94.0 [facility] Comment on above: Performed By: #### C BC ####[facility] Engxfengwh[address] [place], [place] [address]Dr. Garima Pulliam MONO # 0.0 103/ul Critically low 0.3-0.8 [facility] Comment on above: Performed By: #### C BC ####[facility] Bhpfwaikks1092 [place] [address]Dr. Garima Pulliam Monocytes/100 WBC (Bld) 8.0 % Normal 1.7-12.0 [facility] Comment on above: Performed By: #### C BC ####[facility] Hfeepbsokd[address] [place], [place] [address]Dr. Garima Pulliam NEUT # 5.1 103/ul Normal 1.4-6.5 [facility] Comment on above: Performed By: #### C BC ####[facility] Cfagocotvz3050 [place], [place] [address]Aa. Garima Pulliam Neutrophils/100 WBC (Bld) 62.8 % Normal 43.0-75.0 [facility] Comment on above: Performed By: #### C BC ####[facility] Iizpcjejuq5757 [place], [place] [address]Kz. Garima Pulliam Platelet mean volume (Bld) [Entitic vol] 8.6 fL Critically low 9.5-13.5 [facility] Comment on above: Performed By: #### C BC ####[facility] Coeeyshzbf1476 [place] [id number]. Garima Pulliam PLT 200 103/ul Normal 150-450 [facility] Comment on above: Performed By: #### C BC ####[facility] Yndafobeta9791 [place] [id number]. Garima Pulliam RBC 4.69 106/ul Critically low 4.70-6.10 [facility] Comment on above: Performed By: #### C BC ####[facility] Exmfmemmkc6122 [place], [place] [address]To. Garima Pulliam WBC 8.2 103/ul Normal 4.0-11.0 [facility] Comment on above: Performed By: #### C BC ####[facility] Xsdzprnggf7056 [place], [place] [address]Ye. Garima Pulliam [facility]on SARS-CoV-2 (COVID-19) RNA MARIE+probe Ql (Unsp spec) Not detected Normal NOT DETECTED [facility] Comment on above: Result Comment: When [...] for this test is supported by the [employer] of Health and Human Service's declaration [...] be used). Performed By: #### C VDTBH ####[facility] Ulhhacxidk[address] [place], [place] [address]Dr. Garima Pulliam INFLUENZA A AND B AGon 12-25 INFLUANEGH SEE BELOW Normal [facility] Comment on above: Result Comment: Nega tive for Flu A protein angiten. Infection due to Flu A cannot be ruled out. Flu A angiten in the sample may be below the detection limit of the test. Performed By: #### I NFLUAB ####[facility] Oxyxcazjsk[address] [place], [place] [address]Dr. Garima Pulliam INFLUBNEGH SEE BELOW Normal [facility] Comment on above: Result Comment: Nega tive for Flu B protein antigen. Infection due to Flu B cannot be ruled out. Flu B antigen in the sample may be below the detection limit of the test. Performed By: #### I NFLUAB ####[facility] Prqyfypikh[address] [place], [place] [address]Dr. Garima Pulliam INFLUENZA A AG Negative Normal NEGATIVE SEE COMMENT [facility] Comment on above: Performed By: #### I NFLUAB ####[facility] Vdlzpxeutp38[address] [place], [place] [address]Dr. renu [facility] INFLUENZA B AG Negative Normal NEGATIVE SEE COMMENT [facility] Comment on above: Performed By: #### I NFLUAB ####[facility] Anxbamerdb[address] [place], [place] [address]Dr. Garima Pulliam PROF CHEM 8 (BAS METB)on Anion gap [Moles/Vol] 11.1 mmol/L Normal [facility] Comment on above: Performed By: #### B LAMBSKIN TRIMMER, BMP, CMADM ####[facility] Yqfkrmqvnx[address] [place], [place] [address]Dr. Garima Pulliam Calcium [Mass/Vol] 8.5 mg/dL Normal 8.5-10.1 [facility] Comment on above: Performed By: #### B LAMBSKIN TRIMMER, MARVIN, CMADM ####[facility] Itxraompgz9668 [place] [id number]. Garima Pulliam Chloride [Moles/Vol] 106 mmol/L Normal 98-107 [facility] Comment on above: Performed By: #### B LAMBSKIN TRIMMER, BMP, CMADM ####[facility] Pivzgetjee7795 [place] [address]Dr. Garima Pulliam CO2 [Moles/Vol] 27.4 mmol/L Normal 21.0-32.0 [facility] Comment on above: Performed By: #### B LAMBSKIN TRIMMER, MARVIN, CMADM ####[facility] Dfinsliowt9322 [place] [address]Dr. Garima Pulliam Creatinine [Mass/Vol] 0.65 mg/dL Critically low 0.70-1.30 [facility] Comment on above: Performed By: #### B LAMBSKIN TRIMMER, MARVIN, CMADM ####[facility] Vqyrtfnecl3358 [place] [address]Dr. Garima Pulliam EGFR-AF MACEDONIAN >60 Normal >=60 [facility] Comment on above: Performed By: #### B LAMBSKIN TRIMMER, BMP, CMADM ####[facility] Twdcfuywzs2314 [place] [address]Dr. Garima Pulliam EGFR-NON AF MACEDONIAN >60 Normal >=60 [facility] Comment on above: Performed By: #### B LAMBSKIN TRIMMER, BMP, CMADM ####[facility] Snehsyemlt8196 [place] [address]Dr. Garima Pulliam Glucose [Mass/Vol] 140 mg/dL Critically high 74-106 [facility] Comment on above: Performed By: #### B LAMBSKIN TRIMMER, BMP, CMADM ####[facility] Gsbyabqqqq6538 [place] [address]Dr. Garima Pulliam Potassium [Moles/Vol] 3.5 mmol/L Normal 3.5-5.1 [facility] Comment on above: Performed By: #### B LAMBSKIN TRIMMER, BMP, CMADM ####[facility] Uwlrwnmsaj4102 [place] [address]Dr. Garima Pulliam Sodium [Moles/Vol] 141 mmol/L Normal 136-145 [facility] Comment on above: Performed By: #### B LAMBSKIN TRIMMER, BMP, CMADM ####[facility] Diikziisri3857 [place] [address]Dr. Garima Pulliam Urea nitrogen [Mass/Vol] 8.0 mg/dL Normal 7.0-18.0 [facility] Comment on above: Performed By: #### B LAMBSKIN TRIMMER, BMP, CMADM ####[facility] Jtaibbplya9067 [place] [address]Dr. Garima Pulliam Urea nitrogen/Creatinine [Mass ratio] 12.3 mg/mg Normal [facility] Comment on above: Performed By: #### B LAMBSKIN TRIMMER, BMP, CMADM ####[facility] Tmugwtmoir[address] [place], [place] [address]Dr. Garmia Pulliam CARDIAC NASH ADMITon 023 CK [Catalytic activity/Vol] 165 U/L Normal 39-308 [facility] Comment on above: Performed By: #### B DAVID, CMADM ####[facility] Tayaycaudk[address] [place], [place] [address]Dr. Garima Pulliam CK.MB [Mass/Vol] 6.48 ng/mL Critically high <=3.60 [facility] Comment on above: Performed By: #### B MP, CMADM ####[facility] Begxrforjw[address] [place], [place] [address]Dr. Garima Pulliam HSTROP 11.7 pg/mL Normal 4.0-76.1 [facility] Comment on above: Result Comment: CUT- OFF POINTS HAVE BEEN ESTABLISHED BASED ON THE FOURTH UNIVERSAL DEFINITIONS OF MYOCARDIALINFARCTION. THE UPPER REFERENCE LIMIT (URL) OF TROPONIN, DEFINED THE 99TH PERCENTILE OFcTnI DISTRIBUTION IN A REFERENCE POPULATION, HAS BEEN CONFIRMED THE DECISION THRESHOLDFOR OR DIAGNOSIS. Performed By: #### B MP, CMADM ####[facility] [address]iuep[address] [place], [place] [address]Dr. Garima Pulliam DORIS 83 ng/mL Normal 16-96 [facility] Comment on above: Performed By: #### B MP, CMADM ####[facility] Vyixhjmvtx[address] [place] [address]Dr. Garima Pulliam CBC AUTO DIFFon 12-10-2022 BASO # 0.0 103/ul Normal 0.0-0.1 [facility] Comment on above: Performed By: #### C BC ####[facility] Hhmympintl[address] [place], [place] [address]Dr. Garima Heraclio Basophils/100 WBC (Bld) 0.3 % Normal 0.2-2.0 [facility] Comment on above: Performed By: #### C BC ####[facility] Wtnumrwdpy[address] [place], [place] [address]Dr. Garima Pulliam EO # 0.1 103/ul Normal 0.0-0.7 [facility] Comment on above: Performed By: #### C BC ####[facility] Cjyboavcgy[address] [place], [place] [address]Dr. Garima Pulliam Eosinophils/100 WBC (Bld) 0.4 % Critically low 0.9-7.0 [facility] Comment on above: Performed By: #### C BC ####[facility] Nxrksixpst[address] [place], [place] [address]Dr. Garima Pulliam Erythrocyte distribution width (RBC) [Ratio] 13.2 % Normal 11.0-15.0 [facility] Comment on above: Performed By: #### C BC ####[facility] Bqkhmwfudr[address] [place], [place] [address]Dr. Garima Pulliam Hematocrit (Bld) [Volume fraction] 42.4 % Normal 42.0-54.0 [facility] Comment on above: Performed By: #### C BC ####[facility] Xqjkughcdv[address] [place], [place] [address]Dr. Garima Pulliam Hemoglobin (Bld) [Mass/Vol] 14.4 g/dL Normal 14.0-18.0 [facility] Comment on above: Performed By: #### C BC ####[facility] Oqkqlmnafw[address] [place] [id number]. Garima Heraclio IG # 0.05 10e3/ul Critically high 0.00-0.03 The [facility] Comment on above: Performed By: #### C BC ####[facility] Lvdmuqywsd8320 [place] [address]Dr. Garima Heraclio IG % 0.4 % Normal 0.0-0.5 [facility] Comment on above: Performed By: #### C BC ####[facility] Skxnbpkfpk[address] [place], [place] [address]Dr. Garima Pulliam LYMPH # 0.8 103/ul Critically low 1.2-3.8 The [facility] Comment on above: Performed By: #### C BC ####[facility] Qwptsahwnv8[address] [place], [place] [address]Dr. Chapisrenu Pulliam Lymphocytes/100 WBC (Bld) 6.5 % Critically low 20.5-60.0 [facility] Comment on above: Performed By: #### C BC ####[facility] Ninqelbkzn42[address] [place], [place] [address]Dr. Chapisrenu Pulliam MANUAL DIFF REQ NO Normal [facility] Comment on above: Performed By: #### C BC ####[facility] Ceevwpsdtm[address] [place], [place] [address]DrAdalberto Garima Pulliam MCH (RBC) [Entitic mass] 30.5 pg Normal 25.9-34.0 [facility] Comment on above: Performed By: #### C BC ####[facility] Kezevuxkpj[address] [place], [place] [address]DrAdalberto Garima Heraclio MCHC (RBC) [Mass/Vol] 34.0 g/dL Normal 29.9-35.2 [facility] Comment on above: Performed By: #### C BC ####[facility] Jmblcfnxau[address] [place], [place] [address]DrAdalberto Garima Heraclio MCV (RBC) [Entitic vol] 89.8 fL Normal 80.0-94.0 [facility] Comment on above: Performed By: #### C BC ####[facility] Pdgsabfxmk[address] [place], [place] [address]Dr. Garima Pulliam MONO # 0.2 103/ul Critically low 0.3-0.8 The [facility] Comment on above: Performed By: #### C BC ####[facility] Qipjeuwawl0278 [place] [id number]. Garima Pulliam Monocytes/100 WBC (Bld) 2.0 % Normal 1.7-12.0 [facility] Comment on above: Performed By: #### C BC ####[facility] Wjapyqosnj2415 [place] [address]Dr. Chapisrenu Heraclio NEUT # 10.5 103/ul Critically high 1.4-6.5 The [facility] Comment on above: Performed By: #### C BC ####[facility] Cpmaznqolw4940 [place] [address]Dr. Garima Pulliam Neutrophils/100 WBC (Bld) 90.4 % Critically high 43.0-75.0 [facility] Comment on above: Performed By: #### C BC ####[facility] Dmvkjcwsax6074 [place] [address]Dr. Garima Pulliam Platelet mean volume (Bld) [Entitic vol] 9.4 fL Critically low 9.5-13.5 [facility] Comment on above: Performed By: #### C BC ####[facility] Bwekivcpuq6928 [place] [address]Dr. Garima Pulliam PLT 198 103/ul Normal 150-450 [facility] Comment on above: Performed By: #### C BC ####[facility] Ixueldxuqb0775 [place] [address]Dr. Garima Pulliam RBC 4.72 106/ul Normal 4.70-6.10 [facility] Comment on above: Performed By: #### C BC ####[facility] Bpgrxdbayn1033 [place] [id number]. Garima Pulliam WBC 11.6 103/ul Critically high 4.0-11.0 [facility] Comment on above: Performed By: #### C BC ####[facility] Sbukiztegi7073 [place] [address]DrAdalberto Pulliam PROF CHEM 8 (BAS METB)on Anion gap [Moles/Vol] 11.3 mmol/L Normal [facility] Comment on above: Performed By: #### B NANCY HERNANDEZ ####[facility] Wziopwxzir4008 [place] [address]Dr. Garima Pulliam Calcium [Mass/Vol] 8.9 mg/dL Normal 8.5-10.1 [facility] Comment on above: Performed By: #### B NANCY HERNANDEZ ####[facility] Ufkclakzqt8307 [place] [address]Dr. Garima Pulliam Chloride [Moles/Vol] 103 mmol/L Normal 98-107 [facility] Comment on above: Performed By: #### B NANCY HERNANDEZ ####[facility] Njulwikprr[address] [place], [place] [address]Dr. Garima Pulliam CO2 [Moles/Vol] 28.2 mmol/L Normal 21.0-32.0 [facility] Comment on above: Performed By: #### NANCY Larkin MP ####[facility] Dfqmtqngoe1326 [place] [address]Dr. Chapisrenu Pulliam Creatinine [Mass/Vol] 0.60 mg/dL Critically low 0.70-1.30 [facility] Comment on above: Performed By: #### NANCY Larkin MP ####[facility] Hdivtdeycp6438 [place] [address]Dr. Garima Pulliam EGFR-AF MACEDONIAN >60 Normal >=60 [facility] Comment on above: Performed By: #### NANCY Larkin MP ####[facility] Cpenldjikw4523 [place] [address]Dr. Garima Pulliam EGFR-NON AF MACEDONIAN >60 Normal >=60 [facility] Comment on above: Performed By: #### NANCY Larkin MP ####[facility] Klvpumdmxg[address] [place], [place] [address]Dr. Garima Pulliam Glucose [Mass/Vol] 166 mg/dL Critically high 74-106 [facility] Comment on above: Performed By: #### B MP, CMADM ####[facility] Ilerfxufbt8765 [place] [address]Dr. Garima Pulliam Potassium [Moles/Vol] 3.5 mmol/L Normal 3.5-5.1 [facility] Comment on above: Performed By: #### B MP, CMADM ####[facility] Kdfcvljvrt2256 [place] [address]Dr. Garima Pulliam Sodium [Moles/Vol] 139 mmol/L Normal 136-145 The [facility] Comment on above: Performed By: #### B DAVID, CMADM ####[facility] Ajsqmijbmx7419 [place] [address]Dr. Garima Heraclio Urea nitrogen [Mass/Vol] 9.0 mg/dL Normal 7.0-18.0 [facility] Comment on above: Performed By: #### B DAVID, NANCY ####[facility] Drrdqqhhmr[address] [place], [place] [address]Dr. Garima Heraclio Urea nitrogen/Creatinine [Mass ratio] 15.0 mg/mg Normal [facility] Comment on above: Performed By: #### B DAVID, CMAANA ROSA ####[facility] Nbheupplme[address] [place], [place] [address]Dr. Garima Pulliam XR CHEST 1 Von 12-10-2022 XR CHEST 1 V Normal [facility] BNPon 11-27-2022 Natriuretic peptide B (Bld) [Mass/Vol] 95.0 pg/mL Normal <=900.0 [facility] Comment on above: Performed By: #### C MP, HSTROPN, BNP ####[facility] Sbgfxsfqzu[address] [place], [place] [address]Dr. Garima Heraclio CBC AUTO DIFFon 11-27-2022 BASO # 0.0 103/ul Normal 0.0-0.1 [facility] Comment on above: Performed By: #### C BC ####[facility] Kijwxxqnzk[address] [place], [place] [address]Dr. Garima Heraclio Basophils/100 WBC (Bld) 0.2 % Normal 0.2-2.0 [facility] Comment on above: Performed By: #### C BC ####[facility] Ltukadovpy8820 [place] [id number]. Garima Pulliam EO # 0.2 103/ul Normal 0.0-0.7 [facility] Comment on above: Performed By: #### C BC ####[facility] Pweavbxmtq2587 [place] [id number]. Garima Pulliam Eosinophils/100 WBC (Bld) 2.0 % Normal 0.9-7.0 [facility] Comment on above: Performed By: #### C BC ####[facility] Dzofksvivd[address] [place], [place] [address]Dr. Garima Pulliam Erythrocyte distribution width (RBC) [Ratio] 13.2 % Normal 11.0-15.0 [facility] Comment on above: Performed By: #### C BC ####[facility] [address]xedbpfkmh[address] [place], [place] [address]Dr. Garima Pulliam Hematocrit (Bld) [Volume fraction] 42.4 % Normal 42.0-54.0 [facility] Comment on above: Performed By: #### C BC ####[facility] Xtbrepdxhk[address] [place], [place] [address]Dr. Garima Pulliam Hemoglobin (Bld) [Mass/Vol] 14.4 g/dL Normal 14.0-18.0 [facility] Comment on above: Performed By: #### C BC ####[facility] Cnfqvcukxe[address] [place], [place] [address]Dr. Garima Pulliam IG # 0.04 10e3/ul Critically high 0.00-0.03 [facility] Comment on above: Performed By: #### C BC ####[facility] [address]zlhs[address]upi[address] [place], [place] [address]Dr. Garima Pulliam IG % 0.4 % Normal 0.0-0.5 [facility] Comment on above: Performed By: #### C BC ####[facility] Hdcredhlit[address] [place], [place] [address]Dr. Garima Pulliam LYMPH # 2.2 103/ul Normal 1.2-3.8 [facility] Comment on above: Performed By: #### C BC ####[facility] Eejdtvkehb6058 [place] [id number]. Garima Pulliam Lymphocytes/100 WBC (Bld) 21.5 % Normal 20.5-60.0 [facility] Comment on above: Performed By: #### C BC ####[facility] Tleopbuilu7564 [place] [id number]. Garima Heraclio MANUAL DIFF REQ NO Normal [facility] Comment on above: Performed By: #### C BC ####[facility] Plrucpbjzc5836 [place] [id number]. Garima Heraclio MCH (RBC) [Entitic mass] 30.4 pg Normal 25.9-34.0 [facility] Comment on above: Performed By: #### C BC ####[facility] Nykuggqcdy2437 [place] [address]Dr. Garima Heraclio MCHC (RBC) [Mass/Vol] 34.0 g/dL Normal 29.9-35.2 [facility] Comment on above: Performed By: #### C BC ####[facility] Wepxtnkwue1693 [place] [phone]. Garima Pulliam MCV (RBC) [Entitic vol] 89.6 fL Normal 80.0-94.0 [facility] Comment on above: Performed By: #### C BC ####[facility] Uondzdiqym5340 [place] [phone]. Garima Pulliam MONO # 0.8 103/ul Normal 0.3-0.8 [facility] Comment on above: Performed By: #### C BC ####[facility] Kncckmdvlv5102 [place] [phone]. Chapisrenu Pulliam Monocytes/100 WBC (Bld) 7.7 % Normal 1.7-12.0 [facility] Comment on above: Performed By: #### C BC ####[facility] Juhdysdxln[address] [place], [place] [address]Dr. Garima Pulliam NEUT # 7.0 103/ul Critically high 1.4-6.5 [facility] Comment on above: Performed By: #### C BC ####[facility] Jwvsoksrui4676 [place] [id number]. Garima Pulliam Neutrophils/100 WBC (Bld) 68.2 % Normal 43.0-75.0 [facility] Comment on above: Performed By: #### C BC ####[facility] Pifrcgymbt3715 [place] [id number]. Chapisrenu Pulliam Platelet mean volume (Bld) [Entitic vol] 8.9 fL Critically low 9.5-13.5 [facility] Comment on above: Performed By: #### C BC ####[facility] Lauqnkwjpn7535 [place] [address]Dr. Garima Pulliam PLT 222 103/ul Normal 150-450 [facility] Comment on above: Performed By: #### C BC ####[facility] Fjpstrrnhw4703 [place] [address]Dr. Garima Pulliam RBC 4.73 106/ul Normal 4.70-6.10 [facility] Comment on above: Performed By: #### C BC ####[facility] Etpdqpmhjq6909 [place] [address]Dr. Garima Pulliam WBC 10.3 103/ul Normal 4.0-11.0 [facility] Comment on above: Performed By: #### C BC ####[facility] Bxxlflrfog6011 [place] [address]Dr. Garima Pulliam PROF 14(COMP METB)on 023 Albumin [Mass/Vol] 3.7 g/dL Normal 3.4-5.0 [facility] Comment on above: Performed By: #### C MP, HSTROPN, BNP ####[facility] Syfzvhxezv4734 [place] [address]Dr. Chapisrenu Pulliam Albumin/Globulin [Mass ratio] 1.5 {ratio} Normal [facility] Comment on above: Performed By: #### C MP, HSTROPN, BNP ####[facility] Qghuwvxpqn0501 [place] [address]Dr. Garima Pulliam ALP [Catalytic activity/Vol] 79 U/L Normal 46-116 [facility] Comment on above: Performed By: #### C MP, HSTROPN, BNP ####[facility] Nqoikfweee0263 [place] [address]Dr. Garima Pulliam ALT [Catalytic activity/Vol] 32 U/L Normal 16-63 [facility] Comment on above: Performed By: #### C MP, HSTROPN, BNP ####[facility] Jkvenefroj2201 [place] [address]Dr. Garima Pulliam Anion gap [Moles/Vol] 9.5 mmol/L Normal [facility] Comment on above: Performed By: #### C MP, HSTROPN, BNP ####[facility] Xemzamcckp[address] [place], [place] [address]Dr. Garima Pulliam AST [Catalytic activity/Vol] 25 U/L Normal 15-37 [facility] Comment on above: Performed By: #### C MP, HSTROPN, BNP ####[facility] Ilihvsuwck[address] [place], [place] [address]Dr. Chapislan Pulliam Bilirubin [Mass/Vol] 0.4 mg/dL Normal 0.2-1.0 [facility] Comment on above: Performed By: #### C MP, HSTROPN, BNP ####[facility] Qrifbvinuu[address] [place], [place] [address]Dr. Garima Pulliam Calcium [Mass/Vol] 8.9 mg/dL Normal 8.5-10.1 [facility] Comment on above: Performed By: #### C MP, HSTROPN, BNP ####[facility] Cumfgfnzwm[address] [place], [place] [address]Dr. Chapislan Pulliam Chloride [Moles/Vol] 103 mmol/L Normal 98-107 [facility] Comment on above: Performed By: #### C MP, HSTROPN, BNP ####[facility] Llmrlccsbb[address] [place], [place] [address]Dr. Yilan Pulliam CO2 [Moles/Vol] 28.6 mmol/L Normal 21.0-32.0 [facility] Comment on above: Performed By: #### C MP, HSTROPN, BNP ####[facility] Wiqctflpqk7467 [place] [address]Dr. Garima Pulliam Creatinine [Mass/Vol] 0.72 mg/dL Normal 0.70-1.30 [facility] Comment on above: Performed By: #### C MP, HSTROPN, BNP ####[facility] Zhufrbisjt6810 [place] [address]Dr. Garima Pulliam EGFR-AF MACEDONIAN >60 Normal >=60 [facility] Comment on above: Performed By: #### C MP, HSTROPN, BNP ####[facility] Aekijcwjrt7715 [place] [address]Dr. Garima Pulliam EGFR-NON AF MACEDONIAN >60 Normal >=60 [facility] Comment on above: Performed By: #### C MP, HSTROPN, BNP ####[facility] Tiporidmmz3834 [place] [address]Dr. Garima Pulliam Globulin (S) [Mass/Vol] 2.5 g/dL Normal [facility] Comment on above: Performed By: #### C MP, HSTROPN, BNP ####[facility] Kkpchjnvlm[address] [place], [place] [address]Dr. Garima Pulliam Glucose [Mass/Vol] 114 mg/dL Critically high 74-106 [facility] Comment on above: Performed By: #### C MP, HSTROPN, BNP ####[facility] Pqionwnova[address] [place], [place] [address]Dr. Garima Pulliam Potassium [Moles/Vol] 4.1 mmol/L Normal 3.5-5.1 [facility] Comment on above: Performed By: #### C MP, HSTROPN, BNP ####[facility] Nqcemzeebb[address] [place], [place] [address]Dr. Garima Pulliam Protein [Mass/Vol] 6.2 g/dL Critically low 6.4-8.2 [facility] Comment on above: Performed By: #### C MP, HSTROPN, BNP ####[facility] Zqdqjucjjr89[address] [place], [place] [address]Dr. Yilan Pulliam Sodium [Moles/Vol] 137 mmol/L Normal 136-145 [facility] Comment on above: Performed By: #### C MP, HSTROPN, BNP ####[facility] Vqbyoedpxb5601 [place] [address]Dr. Garima Pulliam Urea nitrogen [Mass/Vol] 13.0 mg/dL Normal 7.0-18.0 [facility] Comment on above: Performed By: #### C MP, HSTROPN, BNP ####[facility] Vdavoigehg9671 [place] [address]Dr. Garima Pulliam Urea nitrogen/Creatinine [Mass ratio] 18.1 mg/mg Normal [facility] Comment on above: Performed By: #### C MP, HSTROPN, BNP ####[facility] Xitkisxjbx7[address] [place], [place] [address]Dr. Garima Pulliam TROPONIN, HIGH SENSITIVITYon 11-27-2022 HSTROP 11.8 pg/mL Normal 4.0-76.1 [facility] Comment on above: Result Comment: CUT- OFF POINTS HAVE BEEN ESTABLISHED BASED ON THE FOURTH UNIVERSAL DEFINITIONS OF MYOCARDIALINFARCTION. THE UPPER REFERENCE LIMIT (URL) OF TROPONIN, DEFINED THE 99TH PERCENTILE OFcTnI DISTRIBUTION IN A REFERENCE POPULATION, HAS BEEN CONFIRMED THE DECISION THRESHOLDFOR OR DIAGNOSIS. Performed By: #### C MP, HSTROPN, BNP ####[facility] [address]qyhoxa[address] [place], [place] [address]Dr. Garima Pulliam XR CHEST 1 Von 11-27-2022 XR CHEST 1 V Normal [facility] BNPon 11-20-2022 Natriuretic peptide B (Bld) [Mass/Vol] 73.0 pg/mL Normal <=900.0 [facility] Comment on above: Performed By: #### B MP, HSTROPN, BNP ####[facility] Swaywcuyqv[address] [place], [place] [address]Dr. Garima Pulliam CBC AUTO DIFFon 11-20-2022 BASO # 0.0 103/ul Normal 0.0-0.1 [facility] Comment on above: Performed By: #### C BC ####[facility] Zybrpqikyc2021 [place] [id number]. Garima Pulliam Basophils/100 WBC (Bld) 0.3 % Normal 0.2-2.0 [facility] Comment on above: Performed By: #### C BC ####[facility] Zkrjpxycja2471 [place] [id number]. Garima Pulliam EO # 0.2 103/ul Normal 0.0-0.7 [facility] Comment on above: Performed By: #### C BC ####[facility] Vleizgqidb6360 [place] [address]Dr. Garima Pulliam Eosinophils/100 WBC (Bld) 2.1 % Normal 0.9-7.0 [facility] Comment on above: Performed By: #### C BC ####[facility] Cbchbjziae[address] [place], [place] [address]Dr. Garima Pulliam Erythrocyte distribution width (RBC) [Ratio] 13.2 % Normal 11.0-15.0 [facility] Comment on above: Performed By: #### C BC ####[facility] Jeqkilghlc[address] [place], [place] [address]Dr. Garima Pulliam Hematocrit (Bld) [Volume fraction] 43.4 % Normal 42.0-54.0 [facility] Comment on above: Performed By: #### C BC ####[facility] [address]zfsymeb[address] [place], [place] [address]Dr. Garima Pulliam Hemoglobin (Bld) [Mass/Vol] 14.6 g/dL Normal 14.0-18.0 [facility] Comment on above: Performed By: #### C BC ####[facility] Nydwbfjaif0193 [place] [id number]. Garima Pulliam IG # 0.02 10e3/ul Normal 0.00-0.03 [facility] Comment on above: Performed By: #### C BC ####[facility] Jkwlrfnvwr5319 [place] [address]Dr. Garima Pulliam IG % 0.2 % Normal 0.0-0.5 [facility] Comment on above: Performed By: #### C BC ####[facility] Ozuwmsrtti8084 [place] [id number]. Garima Heraclio LYMPH # 2.1 103/ul Normal 1.2-3.8 [facility] Comment on above: Performed By: #### C BC ####[facility] Hutzqwdakm1460 [place] [address]Dr. Garima Heraclio Lymphocytes/100 WBC (Bld) 19.2 % Critically low 20.5-60.0 [facility] Comment on above: Performed By: #### C BC ####[facility] Pzvwwxtkrm0054 [place] [id number]. Chapisrenu Pulliam MANUAL DIFF REQ NO Normal [facility] Comment on above: Performed By: #### C BC ####[facility] Ufscljkraj7041 [place] [id number]. Garima Heraclio MCH (RBC) [Entitic mass] 30.4 pg Normal 25.9-34.0 [facility] Comment on above: Performed By: #### C BC ####[facility] Spfaknuswq5121 [place] [address]Dr. Garima Pulliam MCHC (RBC) [Mass/Vol] 33.6 g/dL Normal 29.9-35.2 [facility] Comment on above: Performed By: #### C BC ####[facility] Dhfmsztatk8436 [place] [id number]. Garmia Heraclio MCV (RBC) [Entitic vol] 90.4 fL Normal 80.0-94.0 [facility] Comment on above: Performed By: #### C BC ####[facility] Qbpkhhuesf3003 [place] [id number]. Garima Heraclio MONO # 0.6 103/ul Normal 0.3-0.8 [facility] Comment on above: Performed By: #### C BC ####[facility] Ssitgwuzpd8790 [place] [address]Dr. Garima Heraclio Monocytes/100 WBC (Bld) 5.8 % Normal 1.7-12.0 [facility] Comment on above: Performed By: #### C BC ####[facility] Oposmlnfhy6662 [place], [place] [address]Bp. Garima Pulliam NEUT # 7.8 103/ul Critically high 1.4-6.5 [facility] Comment on above: Performed By: #### C BC ####[facility] Zedzenonlb2457 [place] [id number]. Garima Pulliam Neutrophils/100 WBC (Bld) 72.4 % Normal 43.0-75.0 [facility] Comment on above: Performed By: #### C BC ####[facility] Snagxqpbmw6838 [place] [id number]. Garima Pulliam Platelet mean volume (Bld) [Entitic vol] 8.7 fL Critically low 9.5-13.5 [facility] Comment on above: Performed By: #### C BC ####[facility] Qhbnhshqru2805 [place] [id number]. Garima Pulliam PLT 184 103/ul Normal 150-450 [facility] Comment on above: Performed By: #### C BC ####[facility] Zaqgwoszwr9097 [place], [place] [address]Gs. Garima Pulliam RBC 4.80 106/ul Normal 4.70-6.10 [facility] Comment on above: Performed By: #### C BC ####[facility] Wfksidqdyz8366 [place] [id number]. Garima Pulliam WBC 10.8 103/ul Normal 4.0-11.0 [facility] Comment on above: Performed By: #### C BC ####[facility] Ezzesiyfok8097 [place] [id number]. Garima Pulliam [facility]on [facility]24 SARS-CoV-2 (COVID-19) RNA MARIE+probe Ql (Unsp spec) Not detected Normal NOT DETECTED [facility] Comment on above: Result Comment: When [...] for this test is supported by the [employer] of Health and Human Service's declaration [...] be used). Performed By: #### C VDTBH ####[facility] Eujitquhbb[address] [place], [place] [address]Dr. Garima Pulliam INFLUENZA A AND B AGon 11-20 [facility] SEE BELOW Normal [facility] Comment on above: Result Comment: Nega tive for Flu A protein angiten. Infection due to Flu A cannot be ruled out. Flu A angiten in the sample may be below the detection limit of the test. Performed By: #### I NFLUAB ####[facility] Zvbhhlbwha[address] [place], [place] [address]Dr. Garima Pulliam INFLUBNEGH SEE BELOW Normal [facility] Comment on above: Result Comment: Nega tive for Flu B protein antigen. Infection due to Flu B cannot be ruled out. Flu B antigen in the sample may be below the detection limit of the test. Performed By: #### I NFLUAB ####[facility] [address]umwcjfqxa[address] [place], [place] [address]Dr. Garima Pulliam INFLUENZA A AG Negative Normal NEGATIVE SEE COMMENT [facility] Comment on above: Performed By: #### I NFLUAB ####[facility] Txniirryvo[address] [place], [place] [address]Dr. Garima [facility] INFLUENZA B AG Negative Normal NEGATIVE SEE COMMENT [facility] Comment on above: Performed By: #### I NFLUAB ####[facility] [address]yiosfow[address] [place], [place] [address]Dr. Garima Pulliam PROF CHEM 8 (BAS METB)on Anion gap [Moles/Vol] 8.2 mmol/L Normal [facility] Comment on above: Performed By: #### B MP, HSTROPN, BNP ####[facility] [address] [place] [address]Dr. Garima Pulliam Calcium [Mass/Vol] 8.7 mg/dL Normal 8.5-10.1 [facility] Comment on above: Performed By: #### B MP, HSTROPN, BNP ####[facility] Ebguerdyda[address] [place] [address]Dr. Garima Pulliam Chloride [Moles/Vol] 103 mmol/L Normal 98-107 [facility] Comment on above: Performed By: #### B MP, HSTROPN, BNP ####[facility] Uvorepsaqp[address] [place], [place] [address]Dr. Garima Pulliam CO2 [Moles/Vol] 29.4 mmol/L Normal 21.0-32.0 [facility] Comment on above: Performed By: #### B MP, HSTROPN, BNP ####[facility] Nrvymbvnfs[address] [place], [place] [address]Dr. Garima Pulliam Creatinine [Mass/Vol] 0.69 mg/dL Critically low 0.70-1.30 [facility] Comment on above: Performed By: #### B MP, HSTROPN, BNP ####[facility] Axbeyfuxxh[address] [place] [address]Dr. Garima Pulliam EGFR-AF MACEDONIAN >60 Normal >=60 [facility] Comment on above: Performed By: #### B MP, HSTROPN, BNP ####[facility] Bekksckfwe[address] [place], [place] [address]Dr. Garima Pulliam EGFR-NON AF MACEDONIAN >60 Normal >=60 [facility] Comment on above: Performed By: #### B MP, HSTROPN, BNP ####[facility] Jfzthnffjl[address] [place] [address]Dr. Garima Pulliam Glucose [Mass/Vol] 209 mg/dL Critically high 74-106 [facility] Comment on above: Performed By: #### B MP, HSTROPN, BNP ####[facility] Qdplvvtxjd[address] [place] [address]Dr. Garima Pulliam Potassium [Moles/Vol] 3.6 mmol/L Normal 3.5-5.1 [facility] Comment on above: Performed By: #### B MP, HSTROPN, BNP ####[facility] Kewznlfaad[address] [place] [address]Dr. Garima Pulliam Sodium [Moles/Vol] 137 mmol/L Normal 136-145 [facility] [place] [facility] Comment on above: Performed By: #### B MP, HSTROPN, BNP ####[facility] Gcqbahcfhh[address] [place] [address]Dr. Garima Pulliam Urea nitrogen [Mass/Vol] 11.0 mg/dL Normal 7.0-18.0 [facility] Comment on above: Performed By: #### B MP, HSTROPN, BNP ####[facility] Hyuzzoakup[address] [place] [address]Dr. Garima Pulliam Urea nitrogen/Creatinine [Mass ratio] 15.9 mg/mg Normal [facility] Comment on above: Performed By: #### B MP, HSTROPN, BNP ####[facility] Fovcmjbybd[address] [place] [address]Dr. Garima Pulliam TROPONIN, HIGH SENSITIVITYon 11-20-2022 HSTROP 8.7 pg/mL Normal 4.0-76.1 [facility] Comment on above: Result Comment: CUT- OFF POINTS HAVE BEEN ESTABLISHED BASED ON THE FOURTH UNIVERSAL DEFINITIONS OF MYOCARDIALINFARCTION. THE UPPER REFERENCE LIMIT (URL) OF TROPONIN, DEFINED THE 99TH PERCENTILE OFcTnI DISTRIBUTION IN A REFERENCE POPULATION, HAS BEEN CONFIRMED THE DECISION THRESHOLDFOR OR DIAGNOSIS. Performed By: #### B MP, HSTROPN, BNP ####[facility] Zcvjvbdvln3[address] [place] [address]Dr. Garima Pulliam XR CHEST 1 Von 11-20-2022 XR CHEST 1 V Normal [facility] XR CHEST 1 Von 10-02-2022 XR CHEST 1 V Normal [facility] BNPon 09-29-2022 Natriuretic peptide B (Bld) [Mass/Vol] 107.0 pg/mL Normal <=900.0 [facility] Comment on above: Performed By: #### C MP, BNP, CMADM ####[facility] Odsycjatrv[address] [place] [address]Dr. Garima Pulliam CARDIAC NASH ADMITon 022 CK [Catalytic activity/Vol] 190 U/L Normal 39-308 [facility] Comment on above: Performed By: #### C MP, BNP, CMADM ####[facility] Dpbfhlrajh7[address] [place] [address]Dr. Garima Heraclio CK.MB [Mass/Vol] 11.11 ng/mL Critically high <=3.60 [facility] Comment on above: Performed By: #### C MP, BNP, CMADM ####[facility] Ldlzholmgy[address] [place] [address]Dr. Garima Pulliam HSTROP 11.8 pg/mL Normal 4.0-76.1 [facility] Comment on above: Result Comment: CUT- OFF POINTS HAVE BEEN ESTABLISHED BASED ON THE FOURTH UNIVERSAL DEFINITIONS OF MYOCARDIALINFARCTION. THE UPPER REFERENCE LIMIT (URL) OF TROPONIN, DEFINED THE 99TH PERCENTILE OFcTnI DISTRIBUTION IN A REFERENCE POPULATION, HAS BEEN CONFIRMED THE DECISION THRESHOLDFOR OR DIAGNOSIS. Performed By: #### C MP, BNP, CMADM ####[facility] Qyenokcrkx24[address] [place] [address]Dr. Garima Pulliam DORIS 133 ng/mL Critically high 16-96 [facility] Comment on above: Performed By: #### C MP, BNP, CMADM ####[facility] Mhuowydszm[address] [place] [address]Dr. Garima Heraclio CBC AUTO DIFFon 09-29-2022 BASO # 0.0 103/ul Normal 0.0-0.1 [facility] Comment on above: Performed By: #### C BC ####[facility] Vrilpzqurb46[address] [place] [address]Dr. Garima Heraclio Basophils/100 WBC (Bld) 0.2 % Normal 0.2-2.0 [facility] Comment on above: Performed By: #### C BC ####[facility] Yhjceknhwz[address] [place] [id number]. Garima Pulliam EO # 0.1 103/ul Normal 0.0-0.7 [facility] Comment on above: Performed By: #### C BC ####[facility] Swvlarfxjk50[address] [place] [id number]. Garima Pulliam Eosinophils/100 WBC (Bld) 1.4 % Normal 0.9-7.0 [facility] Comment on above: Performed By: #### C BC ####[facility] Dwnsttkrpl[address] [place], [place] [address]Dr. Garima Pulliam Erythrocyte distribution width (RBC) [Ratio] 13.7 % Normal 11.0-15.0 [facility] Comment on above: Performed By: #### C BC ####[facility] Lbktoyintz[address] [place], [place] [address]Dr. Garima Pulliam Hematocrit (Bld) [Volume fraction] 45.4 % Normal 42.0-54.0 [facility] Comment on above: Performed By: #### C BC ####[facility] Ldqdpxuwtn7[address] [place], [place] [address]Dr. Garima Pulliam Hemoglobin (Bld) [Mass/Vol] 14.8 g/dL Normal 14.0-18.0 [facility] Comment on above: Performed By: #### C BC ####[facility] Bjjrefroby[address] [place], [place] [address]Dr. Garima Pulliam IG # 0.04 10e3/ul Critically high 0.00-0.03 [facility] Comment on above: Performed By: #### C BC ####[facility] Yuaykguosk9[address] [place], [place] [address]Dr. Garima Pulliam IG % 0.5 % Normal 0.0-0.5 [facility] Comment on above: Performed By: #### C BC ####[facility] Kkofyeaeop96[address] [place], [place] [address]Dr. Garima Pulliam LYMPH # 1.1 103/ul Critically low 1.2-3.8 [facility] Comment on above: Performed By: #### C BC ####[facility] Bvnxmzqhrd[address] [place] [id number]. Garima Pulliam Lymphocytes/100 WBC (Bld) 12.7 % Critically low 20.5-60.0 [facility] Comment on above: Performed By: #### C BC ####[facility] Hrcckpfotb76[address] [place] [id number]. Chapisrenu Pulliam MANUAL DIFF REQ NO Normal [facility] Comment on above: Performed By: #### C BC ####[facility] Cphptvqnmj[address] [place], [place] [address]Dr. Garima Heraclio MCH (RBC) [Entitic mass] 30.0 pg Normal 25.9-34.0 [facility] Comment on above: Performed By: #### C BC ####[facility] Jvsstearpu[address] [place], [place] [address]Dr. Garima Heraclio MCHC (RBC) [Mass/Vol] 32.6 g/dL Normal 29.9-35.2 [facility] Comment on above: Performed By: #### C BC ####[facility] Zhykjemsvf[address] [place], [place] [address]Dr. Garima Heraclio MCV (RBC) [Entitic vol] 91.9 fL Normal 80.0-94.0 [facility] Comment on above: Performed By: #### C BC ####[facility] Fscgfiaesq[address] [place], [place] [address]Dr. Garima Pulliam MONO # 0.4 103/ul Normal 0.3-0.8 [facility] Comment on above: Performed By: #### C BC ####[facility] Qtwghrifym[address] [place], [place] [address]Dr. Chapisrenu Pulliam Monocytes/100 WBC (Bld) 4.8 % Normal 1.7-12.0 [facility] Comment on above: Performed By: #### C BC ####[facility] Vkfxnonhit5[address] [place], [place] [address]Dr. Garima Pulliam NEUT # 7.1 103/ul Critically high 1.4-6.5 [facility] Comment on above: Performed By: #### C BC ####[facility] Qsmyyduvwp2215 [place], [place] [address]Wr. Garima Pulliam Neutrophils/100 WBC (Bld) 80.4 % Critically high 43.0-75.0 [facility] Comment on above: Performed By: #### C BC ####[facility] E[address]ijwahw[address] [place] [phone]. Garima Pulliam Platelet mean volume (Bld) [Entitic vol] 9.1 fL Critically low 9.5-13.5 [facility] Comment on above: Performed By: #### C BC ####[facility] Yahocmbmaj[address] [place] [id number]. Garima Pulliam PLT 200 103/ul Normal 150-450 [facility] Comment on above: Performed By: #### C BC ####[facility] Dwzhftzxvh11[address] [place] [phone]. Garima Pulliam RBC 4.94 106/ul Normal 4.70-6.10 [facility] Comment on above: Performed By: #### C BC ####[facility] Icgkdbyeta0536 [place] [phone]. Garima Pulliam WBC 8.9 103/ul Normal 4.0-11.0 [facility] Comment on above: Performed By: #### C BC ####[facility] Nklskrrvxe18[address] [place] [phone]. Garima Pulliam Covid-19 PCR (CVDTB)on SARS-CoV-2 (COVID-19) RNA MARIE+probe Ql (Unsp spec) Not detected Normal NOT DETECTED [facility] Comment on above: Result Comment: When [...] for this test is supported by the [employer] of Health and Human Service's declaration [...] be used). Performed By: #### C VDTBH ####[facility] Dtmpnhixng[address] [place] [address]Dr. Garima Pulliam LACTATE/LACTIC ACIDon 2021 Lactate [Moles/Vol] 1.7 mmol/L Normal 0.4-1.[address] [facility] Comment on above: Performed By: #### L ACT ####[facility] Iivorxaipx06[address] [place], [place] [address]Dr. Garima Pulliam PROF 14(COMP METB)on 022 Albumin [Mass/Vol] 3.8 g/dL Normal 3.4-5.0 [facility] Comment on above: Performed By: #### C MP, BNP, CMADM ####[facility] Cnbafwuwrn[address] [place], [place] [address]Dr. Garima Pulliam Albumin/Globulin [Mass ratio] 1.5 {ratio} Normal [facility] Comment on above: Performed By: #### C MP, BNP, CMADM ####[facility] Aegsaeuxmw[address] [place] [address]Dr. Garima Pulliam ALP [Catalytic activity/Vol] 62 U/L Normal 46-116 [facility] Comment on above: Performed By: #### C MP, BNP, CMADM ####[facility] Bqaioxncay4746 [place] [address]Dr. Garima Pulliam ALT [Catalytic activity/Vol] 37 U/L Normal 16-63 [facility] Comment on above: Performed By: #### C MP, BNP, CMADM ####[facility] Bdsxfrqlld5[address] [place] [address]Dr. Garima Pulliam Anion gap [Moles/Vol] 8.0 mmol/L Normal [facility] Comment on above: Performed By: #### C MP, BNP, CMADM ####[facility] Wqmamdmtgj7706 [place] [address]Dr. Garima Pulliam AST [Catalytic activity/Vol] 20 U/L Normal 15-37 [facility] Comment on above: Performed By: #### C MP, BNP, CMADM ####[facility] Plrlwdofbd2035 [place] [address]Dr. Garima Pulliam Bilirubin [Mass/Vol] 0.6 mg/dL Normal 0.2-1.0 [facility] Comment on above: Performed By: #### C MP, BNP, CMADM ####[facility] Oijffibeqh8134 [place] [address]Dr. Garima Pulliam Calcium [Mass/Vol] 9.1 mg/dL Normal 8.5-10.1 [facility] Comment on above: Performed By: #### C MP, BNP, CMADM ####[facility] Faggbyclxw[address] [place], [place] [address]Dr. Garima Pulliam Chloride [Moles/Vol] 103 mmol/L Normal 98-107 [facility] Comment on above: Performed By: #### C MP, BNP, CMADM ####[facility] Qtkjhqsykr[address] [place], [place] [address]Dr. Garima Pulliam CO2 [Moles/Vol] 31.8 mmol/L Normal 21.0-32.0 [facility] Comment on above: Performed By: #### C MP, BNP, CMADM ####[facility] Nnegvazwwd[address] [place], [place] [address]Dr. Garima Pulliam Creatinine [Mass/Vol] 0.63 mg/dL Critically low 0.70-1.30 [facility] Comment on above: Performed By: #### C MP, BNP, CMADM ####[facility] [address]gwqkdhnxf[address] [place], [place] [address]Dr. Garima Pulliam EGFR-AF MACEDONIAN >60 Normal >=60 [facility] Comment on above: Performed By: #### C MP, BNP, CMADM ####[facility] Xxhynigcuu[address] [place], [place] [address]Dr. Garima Pulliam EGFR-NON AF MACEDONIAN >60 Normal >=60 [facility] Comment on above: Performed By: #### C MP, BNP, CMADM ####[facility] Trzswfesmr48[address] [place] [address]Dr. Garima Pulliam Globulin (S) [Mass/Vol] 2.6 g/dL Normal [facility] Comment on above: Performed By: #### C MP, BNP, CMADM ####[facility] Yglfyuvpkr4927 [place] [address]Dr. Garima Pulliam Glucose [Mass/Vol] 103 mg/dL Normal 74-106 [facility] Comment on above: Performed By: #### C MP, BNP, CMADM ####[facility] Vwebwkvvzy8004 [place] [address]Dr. Garima Pulliam Potassium [Moles/Vol] 3.8 mmol/L Normal 3.5-5.1 [facility] Comment on above: Performed By: #### C MP, BNP, CMADM ####[facility] Yoojtxnofv7257 [place] [address]Dr. Garima Pulliam Protein [Mass/Vol] 6.4 g/dL Normal 6.4-8.2 [facility] Comment on above: Performed By: #### C MP, BNP, CMADM ####[facility] Brrnreirbo9[address] [place] [address]Dr. Garima Pulliam Sodium [Moles/Vol] 139 mmol/L Normal 136-145 [facility] Comment on above: Performed By: #### C MP, BNP, CMADM ####[facility] Wcnpbhswfz4913 [place] [address]Dr. Garima Pulliam Urea nitrogen [Mass/Vol] 7.0 mg/dL Normal 7.0-18.0 [facility] Comment on above: Performed By: #### C MP, BNP, CMADM ####[facility] Ytuygjlwye7272 [place] [address]Dr. Garima Pulliam Urea nitrogen/Creatinine [Mass ratio] 11.1 mg/mg Normal [facility] Comment on above: Performed By: #### C MP, BNP, CMADM ####[facility] Lcmsemahqv0624 [place] [address]Dr. Garima Pulliam PROTIMEon 09-29-2022 INR Coag (PPP) [Relative time] 1.14 {INR} Normal [facility] Comment on above: Performed By: #### P T, PTT ####[facility] Dxioypnccr[address] [place], [place] [address]Dr. Garima Pulliam INR GUIDELINES SEE BELOW Normal [facility] Comment on above: Result Comment: WESLEY RED INR: 2.0 - 3.0 CONDITIONS NOT LISTED BELOW 2.5 - 3.5 FOR PROSTHETIC HEART VALVE REPLACEMENT 2.5 - 3.5 RECURRENT THROMBOSIS Performed By: #### P T, PTT ####[facility] Nkeqzdvmwm[address] [place], [place] [address]Dr. Garima Pulliam PT Coag (PPP) [Time] 12.2 s Critically high 9.0-11.6 [facility] Comment on above: Performed By: #### P T, PTT ####[facility] Rmfruyoyry[address] [place], [place] [address]Dr. Garima Pulliam PTTon 09-29-2022 aPTT Coag (Bld) [Time] 29.3 s Normal 22.3-36.2 [facility] Comment on above: Performed By: #### P T, PTT ####[facility] Vihrgzyljj[address] [place], [place] [address]Dr. Garima Pulliam XR CHEST 1 Von 09-29-2022 XR CHEST 1 V Normal [facility] CBC AUTO DIFFon 09-26-2022 BASO # 0.0 103/ul Normal 0.0-0.1 [facility] Comment on above: Performed By: #### C BC ####[facility] Pajlsevrme[address] [place], [place] [address]Dr. Graima Pulliam Basophils/100 WBC (Bld) 0.2 % Normal 0.2-2.0 [facility] Comment on above: Performed By: #### C BC ####[facility] Ikairfjhvl38[address] [place], [place] [address]Dr. Garima Pulliam EO # 0.1 103/ul Normal 0.0-0.7 [facility] Comment on above: Performed By: #### C BC ####[facility] Cghtdfeljs8[address] [place], [place] [address]Dr. Garima Pulliam Eosinophils/100 WBC (Bld) 1.0 % Normal 0.9-7.0 [facility] Comment on above: Performed By: #### C BC ####[facility] Zatoxxnsoe025[address] [place], [place] [address]Dr. Garima Pulliam Erythrocyte distribution width (RBC) [Ratio] 13.4 % Normal 11.0-15.0 [facility] Comment on above: Performed By: #### C BC ####[facility] Pgxzcpzosx86[address] [place], [place] [address]Dr. Garima Pulliam Hematocrit (Bld) [Volume fraction] 46.3 % Normal 42.0-54.0 [facility] Comment on above: Performed By: #### C BC ####[facility] Vabzwtpttl[address] [place], [place] [address]Dr. Garima Pulliam Hemoglobin (Bld) [Mass/Vol] 15.3 g/dL Normal 14.0-18.0 [facility] Comment on above: Performed By: #### C BC ####[facility] Gaklfvikck[address] [place], [place] [address]Dr. Garima Pulliam IG # 0.05 10e3/ul Critically high 0.00-0.03 [facility] Comment on above: Performed By: #### C BC ####[facility] Vsguzfojmc[address] [place], [place] [address]Dr. Garima Pulliam IG % 0.4 % Normal 0.0-0.5 [facility] Comment on above: Performed By: #### C BC ####[facility] Nplrwwkujf9[address] [place], [place] [address]Dr. Garima Pulliam LYMPH # 1.7 103/ul Normal 1.2-3.8 [facility] Comment on above: Performed By: #### C BC ####[facility] Mvxojqmfol30[address] [place], [place] [address]Dr. Garima Pulliam Lymphocytes/100 WBC (Bld) 12.7 % Critically low 20.5-60.0 [facility] Comment on above: Performed By: #### C BC ####[facility] Hojvmngyir[address] [place] [address]DrAdalberto Pulliam MANUAL DIFF REQ NO Normal [facility] Comment on above: Performed By: #### C BC ####[facility] Oolpqqlxah8987 [place] [address]Dr. Garima Pulliam MCH (RBC) [Entitic mass] 30.1 pg Normal 25.9-34.0 [facility] Comment on above: Performed By: #### C BC ####[facility] Dtoozsuglx50[address] [place], [place] [address]Dr. Garima Pulliam MCHC (RBC) [Mass/Vol] 33.0 g/dL Normal 29.9-35.2 [facility] Comment on above: Performed By: #### C BC ####[facility] Awsnjmoyae18[address] [place], [place] [address]DrAdalberto Pulliam MCV (RBC) [Entitic vol] 91.1 fL Normal 80.0-94.0 [facility] Comment on above: Performed By: #### C BC ####[facility] Fdcicnkxjy[address] [place], [place] [address]DrAdalberto Pulliam MONO # 0.9 103/ul Critically high 0.3-0.8 [facility] Comment on above: Performed By: #### C BC ####[facility] Hjbeoixdqj[address] [place], [place] [address]DrAdalberto Pulliam Monocytes/100 WBC (Bld) 7.0 % Normal 1.7-12.0 [facility] Comment on above: Performed By: #### C BC ####[facility] Woaqxvylkb74[address] [place], [place] [address]DrAdalberto Pulliam NEUT # 10.4 103/ul Critically high 1.4-6.5 [facility] Comment on above: Performed By: #### C BC ####[facility] Ckkvtshtbt8[address] [place], [place] [address]DrAdalberto Pulliam Neutrophils/100 WBC (Bld) 78.7 % Critically high 43.0-75.0 [facility] Comment on above: Performed By: #### C BC ####[facility] Qoyttpdxnr1170 [place] [address]Dr. Garima Pulliam Platelet mean volume (Bld) [Entitic vol] 8.9 fL Critically low 9.5-13.5 [facility] Comment on above: Performed By: #### C BC ####[facility] Oztpdcccxe5281 [place] [address]Dr. Garima Pulliam PLT 195 103/ul Normal 150-450 [facility] Comment on above: Performed By: #### C BC ####[facility] Yijiutegix[address] [place], [place] [address]Dr. Garima Pulliam RBC 5.08 106/ul Normal 4.70-6.10 [facility] Comment on above: Performed By: #### C BC ####[facility] Nmvfgrennc[address] [place], [place] [address]Dr. Garima Pulliam WBC 13.2 103/ul Critically high 4.0-11.0 [facility] Comment on above: Performed By: #### C BC ####[facility] Cugnrxvfzu[address] [place], [place] [address]Dr. Garima Pulliam PROF 14(COMP METB)on 022 Albumin [Mass/Vol] 3.5 g/dL Normal 3.4-5.0 [facility] Comment on above: Performed By: #### C DAVID HSTROPN ####[facility] Yxmnwlpykv9187 [place] [address]Dr. Garima Pulliam Albumin/Globulin [Mass ratio] 1.2 {ratio} Normal [facility] Comment on above: Performed By: #### C RAFAT HERNANDEZTROPN ####[facility] Iyzxlkdfpy8237 [place] [address]Dr. Garima Pulliam ALP [Catalytic activity/Vol] 71 U/L Normal 46-116 [facility] Comment on above: Performed By: #### C DAVID HSTROPN ####[facility] Lgnqxbqmpo1187 [place] [address]Dr. Garima Pulliam ALT [Catalytic activity/Vol] 37 U/L Normal 16-63 [facility] Comment on above: Performed By: #### C DAVID, HSTROPN ####[facility] Mqtxjdwlyk4781 [place] [address]Dr. Garima Pulliam Anion gap [Moles/Vol] 4.8 mmol/L Normal [facility] Comment on above: Performed By: #### C DAVID, HSTROPN ####[facility] Adrcgxvyls[address] [place], [place] [address]Dr. Garima Pulliam AST [Catalytic activity/Vol] 21 U/L Normal 15-37 [facility] Comment on above: Performed By: #### C DAVID, HSTROPN ####[facility] Vzfbrcogqf[address] [place], [place] [address]Dr. Garima Pulliam Bilirubin [Mass/Vol] 0.3 mg/dL Normal 0.2-1.0 [facility] Comment on above: Performed By: #### C DAVID, HSTROPN ####[facility] Abchdsujjt4893 [place] [address]Dr. Garima Pulliam Calcium [Mass/Vol] 8.9 mg/dL Normal 8.5-10.1 [facility] Comment on above: Performed By: #### C DAVID, HSTROPN ####[facility] Fprtbegzuv3745 [place] [address]Dr. Garima Pulliam Chloride [Moles/Vol] 106 mmol/L Normal 98-107 [facility] Comment on above: Performed By: #### C DAVID, HSTROPN ####[facility] Qsyerpphup1852 [place] [address]Dr. Garima Pulliam CO2 [Moles/Vol] 29.8 mmol/L Normal 21.0-32.0 [facility] Comment on above: Performed By: #### C DAVID, HSTROPN ####[facility] Rypyoeeaal8906 [place] [address]Dr. Garima Pulliam Creatinine [Mass/Vol] 0.68 mg/dL Critically low 0.70-1.30 [facility] Comment on above: Performed By: #### C MP, HSTROPN ####[facility] Ahpcrhujeh0275 [place] [address]Dr. Garima Pulliam EGFR-AF MACEDONIAN >60 Normal >=60 [facility] Comment on above: Performed By: #### C MP, HSTROPN ####[facility] Kxgchzlzrt76[address] [place] [address]Dr. Chapislan Pulliam EGFR-NON AF MACEDONIAN >60 Normal >=60 [facility] Comment on above: Performed By: #### C MP, HSTROPN ####[facility] Exlruqcluj1434 [place] [address]Dr. Garima Pulliam Globulin (S) [Mass/Vol] 2.8 g/dL Normal [facility] Comment on above: Performed By: #### C MP, HSTROPN ####[facility] Xvfhmohrfc7115 [place] [address]Dr. Garima Pulliam Glucose [Mass/Vol] 133 mg/dL Critically high 74-106 [facility] Comment on above: Performed By: #### C MP, HSTROPN ####[facility] Tjetydovez5[address] [place] [address]Dr. Chapisrenu Pulliam Potassium [Moles/Vol] 3.6 mmol/L Normal 3.5-5.1 [facility] Comment on above: Performed By: #### C MP, HSTROPN ####[facility] Qnbvvqpkfr5186 [place] [address]Dr. Chapisrenu Pulliam Protein [Mass/Vol] 6.3 g/dL Critically low 6.4-8.2 [facility] Comment on above: Performed By: #### C MP, HSTROPN ####[facility] Rbusfddeuv[address] [place], [place] [address]Dr. Chapisrenu Pulliam Sodium [Moles/Vol] 137 mmol/L Normal 136-145 [facility] Comment on above: Performed By: #### C MP, HSTROPN ####[facility] Doefiqsozc[address] [place], [place] [address]Dr. Garima Pulliam Urea nitrogen [Mass/Vol] 15.0 mg/dL Normal 7.0-18.0 [facility] Comment on above: Performed By: #### C DAVID HSTROPN ####[facility] Cfihnuudks119[address] [place] [address]Dr. Chapisrenu Pulliam Urea nitrogen/Creatinine [Mass ratio] 22.1 mg/mg Normal [facility] Comment on above: Performed By: #### C DAVID HSTROPN ####[facility] [address]umcjfm[address] [place] [address]Dr. Garima Heraclio TROPONIN, HIGH SENSITIVITYon 09-26-2022 HSTROP 12.8 pg/mL Normal 4.0-76.1 [facility] Comment on above: Result Comment: CUT- OFF POINTS HAVE BEEN ESTABLISHED BASED ON THE FOURTH UNIVERSAL DEFINITIONS OF MYOCARDIALINFARCTION. THE UPPER REFERENCE LIMIT (URL) OF TROPONIN, DEFINED THE 99TH PERCENTILE OFcTnI DISTRIBUTION IN A REFERENCE POPULATION, HAS BEEN CONFIRMED THE DECISION THRESHOLDFOR OR DIAGNOSIS. Performed By: #### C DAVID HSTROPN ####[facility] [address]rgeofzghc[address] [place] [address]Dr. Chapisrenu Pulliam XR CHEST 1 Von 09-26-2022 XR CHEST 1 V Normal [facility] XR CHEST 1 Von 09-16-2022 XR CHEST 1 V Normal [facility] CBC AUTO DIFFon 09-15-2022 BASO # 0.0 103/ul Normal 0.0-0.1 [facility] Comment on above: Performed By: #### C BC ####[facility] Grsusdcncq[address] [place] [address]Dr. Garima Heraclio Basophils/100 WBC (Bld) 0.1 % Critically low 0.2-2.0 [facility] Comment on above: Performed By: #### C BC ####[facility] Llbdjjxmmg8661 [place] [address]Dr. Garima Pulliam EO # 0.0 103/ul Normal 0.0-0.7 [facility] Comment on above: Performed By: #### C BC ####[facility] Tkxknbhgfw23[address] [place] [address]Dr. Garima Pulliam Eosinophils/100 WBC (Bld) 0.1 % Critically low 0.9-7.0 [facility] Comment on above: Performed By: #### C BC ####[facility] Xlenxzbwru0924 [place] [address]Dr. Garima Pulliam Erythrocyte distribution width (RBC) [Ratio] 14.1 % Normal 11.0-15.0 [facility] Comment on above: Performed By: #### C BC ####[facility] Xjljtxul[address] [place], [place] [address]Dr. Garima Pulliam Hematocrit (Bld) [Volume fraction] 46.1 % Normal 42.0-54.0 [facility] Comment on above: Performed By: #### C BC ####[facility] Kygaynyiwq[address] [place], [place] [address]Dr. Garima Pulliam Hemoglobin (Bld) [Mass/Vol] 15.0 g/dL Normal 14.0-18.0 [facility] Comment on above: Performed By: #### C BC ####[facility] [address]tvojujmey[address] [place], [place] [address]Dr. Garima Pulliam IG # 0.03 10e3/ul Normal 0.00-0.03 [facility] Comment on above: Performed By: #### C BC ####[facility] Riguyvqxhf[address] [place], [place] [address]Dr. Garima Pulliam IG % 0.3 % Normal 0.0-0.5 [facility] Comment on above: Performed By: #### C BC ####[facility] Dbrwttnuls[address] [place], [place] [address]Dr. Garima Pulliam LYMPH # 0.6 103/ul Critically low 1.2-3.8 [facility] Comment on above: Performed By: #### C BC ####[facility] Uteggywhao[address] [place], [place] [address]Dr. Garima Pulliam Lymphocytes/100 WBC (Bld) 5.8 % Critically low 20.5-60.0 [facility] Comment on above: Performed By: #### C BC ####[facility] Mdwxuflqua9[address] [place] [id number]. Garima Pulliam MANUAL DIFF REQ NO Normal [facility] Comment on above: Performed By: #### C BC ####[facility] Aetauajyeq39[address] [place] [id number]. Garima Pulliam MCH (RBC) [Entitic mass] 30.2 pg Normal 25.9-34.0 [facility] Comment on above: Performed By: #### C BC ####[facility] Tjisjjsurz5[address] [place] [address]Dr. Garima Pulliam MCHC (RBC) [Mass/Vol] 32.5 g/dL Normal 29.9-35.2 [facility] Comment on above: Performed By: #### C BC ####[facility] Uconzfpmqo97[address] [place] [address]Dr. Garima Pulliam MCV (RBC) [Entitic vol] 92.8 fL Normal 80.0-94.0 [facility] Comment on above: Performed By: #### C BC ####[facility] Tcvbgjjazb5830 [place] [address]Dr. Garima Heraclio MONO # 0.3 103/ul Normal 0.3-0.8 [facility] Comment on above: Performed By: #### C BC ####[facility] Fnmjvpvttn9811 [place] [id number]. Garima Heraclio Monocytes/100 WBC (Bld) 3.2 % Normal 1.7-12.0 [facility] Comment on above: Performed By: #### C BC ####[facility] Hyottniqaq6299 [place] [id number]. Garima Pulliam NEUT # 9.8 103/ul Critically high 1.4-6.5 [facility] Comment on above: Performed By: #### C BC ####[facility] Qawuqewshf0135 [place] [id number]. Garima Pulliam Neutrophils/100 WBC (Bld) 90.5 % Critically high 43.0-75.0 [facility] Comment on above: Performed By: #### C BC ####[facility] Bfvocnvkox4616 [place] [id number]. Garima Pulliam Platelet mean volume (Bld) [Entitic vol] 9.4 fL Critically low 9.5-13.5 [facility] Comment on above: Performed By: #### C BC ####[facility] Hajtsocdiz2465 [place] [id number]. Garima Pulliam PLT 208 103/ul Normal 150-450 [facility] Comment on above: Performed By: #### C BC ####[facility] Uvwqcqtmfs1806 [place] [address]Dr. Garima Pulliam RBC 4.97 106/ul Normal 4.70-6.10 [facility] Comment on above: Performed By: #### C BC ####[facility] Thhmxbweuw8708 [place] [address]Dr. Garima Pulliam WBC 10.8 103/ul Normal 4.0-11.0 [facility] Comment on above: Performed By: #### C BC ####[facility] Phxxcxtqjc9171 [place] [address]Dr. Garima Pulliam PROF 14(COMP METB)on 022 Albumin [Mass/Vol] 4.0 g/dL Normal 3.4-5.0 [facility] Comment on above: Performed By: #### C MP ####[facility] Tisauneiae7[address] [place] [address]Dr. Garima Pulliam Albumin/Globulin [Mass ratio] 1.5 {ratio} Normal [facility] Comment on above: Performed By: #### C MP ####[facility] Egvyzzadts2053 [place] [address]Dr. Garima Pulliam ALP [Catalytic activity/Vol] 73 U/L Normal 46-116 [facility] Comment on above: Performed By: #### C MP ####[facility] Hnbkfoqzpt8303 [place] [address]Dr. Garima Pulliam ALT [Catalytic activity/Vol] 42 U/L Normal 16-63 [facility] Comment on above: Performed By: #### C MP ####[facility] Htiikdcelr0848 [place] [address]Dr. Garima Pulliam Anion gap [Moles/Vol] 9.1 mmol/L Normal [facility] Comment on above: Performed By: #### C MP ####[facility] Knksgermsw[address] [place], [place] [address]Dr. Garima Pulliam AST [Catalytic activity/Vol] 28 U/L Normal 15-37 [facility] Comment on above: Performed By: #### C MP ####[facility] Rlbchbfdaq[address] [place], [place] [address]Dr. Garima Pulliam Bilirubin [Mass/Vol] 0.6 mg/dL Normal 0.2-1.0 [facility] Comment on above: Performed By: #### C MP ####[facility] Lsetapcyuw[address] [place], [place] [address]Dr. Garima Pulliam Calcium [Mass/Vol] 8.6 mg/dL Normal 8.5-10.1 [facility] Comment on above: Performed By: #### C MP ####[facility] Uzfdxkpfdf[address] [place], [place] [address]Dr. Garima Pulliam Chloride [Moles/Vol] 105 mmol/L Normal 98-107 [facility] Comment on above: Performed By: #### C MP ####[facility] Gsisvowkad[address] [place], [place] [address]Dr. Garima Pulliam CO2 [Moles/Vol] 28.5 mmol/L Normal 21.0-32.0 [facility] Comment on above: Performed By: #### C MP ####[facility] Hkyxffoofm[address] [place], [place] [address]Dr. Garima Heraclio Creatinine [Mass/Vol] 0.78 mg/dL Normal 0.70-1.30 [facility] Comment on above: Performed By: #### C MP ####[facility] Frwkllntkw10[address] [place], [place] [address]Dr. Chapisrenu Heraclio EGFR-AF MACEDONIAN >60 Normal >=60 [facility] Comment on above: Performed By: #### C MP ####[facility] Qtyvcrkeds[address] [place], [place] [address]Dr. Garima Pulliam EGFR-NON AF MACEDONIAN >60 Normal >=60 [facility] Comment on above: Performed By: #### C MP ####[facility] Sxcrpvyblf0127 [place] [address]Dr. Garima Pulliam Globulin (S) [Mass/Vol] 2.7 g/dL Normal [facility] Comment on above: Performed By: #### C MP ####[facility] Gvlytthuer7499 [place] [address]Dr. Garima Pulliam Glucose [Mass/Vol] 220 mg/dL Critically high 74-106 [facility] Comment on above: Performed By: #### C MP ####[facility] Pvbzwielhb2263 [place] [address]Dr. Garima Pulliam Potassium [Moles/Vol] 3.6 mmol/L Normal 3.5-5.1 [facility] Comment on above: Performed By: #### C MP ####[facility] Wkcfkyaxda[address] [place], [place] [address]Dr. Garima Pulliam Protein [Mass/Vol] 6.7 g/dL Normal 6.4-8.2 [facility] Comment on above: Performed By: #### C MP ####[facility] Dwwrcjdoqq[address] [place], [place] [address]Dr. Garima Pulliam Sodium [Moles/Vol] 139 mmol/L Normal 136-145 [facility] Comment on above: Performed By: #### C MP ####[facility] Rndbydmwsg[address] [place], [place] [address]Dr. Garima Pulliam Urea nitrogen [Mass/Vol] 11.0 mg/dL Normal 7.0-18.0 [facility] Comment on above: Performed By: #### C MP ####[facility] Tmhdkmwmmw[address] [place], [place] [address]Dr. Garima Pulliam Urea nitrogen/Creatinine [Mass ratio] 14.1 mg/mg Normal [facility] Comment on above: Performed By: #### C MP ####[facility] Zrdlpgimsy[address] [place], [place] [address]Dr. Garima Pulliam CARDIAC NASH 3-6on 2 CK [Catalytic activity/Vol] 240 U/L Normal 39-308 [facility] Comment on above: Performed By: #### C MREP ####[facility] Hpljpdnvny7679 [place] [address]Dr. Garima Pulliam CK.MB [Mass/Vol] 10.38 ng/mL Critically high <=3.60 [facility] Comment on above: Performed By: #### C MREP ####[facility] Epfcnztqgw9666 [place] [address]Dr. Garima Pulliam HSTROP 18.5 pg/mL Normal 4.0-76.1 [facility] Comment on above: Result Comment: CUT- OFF POINTS HAVE BEEN ESTABLISHED BASED ON THE FOURTH UNIVERSAL DEFINITIONS OF MYOCARDIALINFARCTION. THE UPPER REFERENCE LIMIT (URL) OF TROPONIN, DEFINED THE 99TH PERCENTILE OFcTnI DISTRIBUTION IN A REFERENCE POPULATION, HAS BEEN CONFIRMED THE DECISION THRESHOLDFOR OR DIAGNOSIS. Performed By: #### C MREP ####[facility] Esdvlzfnrc4326 [place] [address]Dr. Garima Pulliam CK [Catalytic activity/Vol] 257 U/L Normal 39-308 [facility] Comment on above: Performed By: #### C MREP ####[facility] Cptckhupfc[address] [place], [place] [address]Dr. Garima Pulliam CK.MB [Mass/Vol] 9.89 ng/mL Critically high <=3.60 [facility] Comment on above: Performed By: #### C MREP ####[facility] Pktvngfgrn[address] [place], [place] [address]Dr. Garima Pulliam HSTROP 16.9 pg/mL Normal 4.0-76.1 [facility] Comment on above: Result Comment: CUT- OFF POINTS HAVE BEEN ESTABLISHED BASED ON THE FOURTH UNIVERSAL DEFINITIONS OF MYOCARDIALINFARCTION. THE UPPER REFERENCE LIMIT (URL) OF TROPONIN, DEFINED THE 99TH PERCENTILE OFcTnI DISTRIBUTION IN A REFERENCE POPULATION, HAS BEEN CONFIRMED THE DECISION THRESHOLDFOR OR DIAGNOSIS. Performed By: #### C MREP ####[facility] Aiywjutuat8[address] [place] [address]Dr. Garima Heraclio CBC AUTO DIFFon 10-22-2022 BASO # 0.0 103/ul Normal 0.0-0.1 [facility] Comment on above: Performed By: #### C BC ####[facility] Xwwkiuwqww3317 [place] [id number]. Garima Pulliam Basophils/100 WBC (Bld) 0.1 % Critically low 0.2-2.0 [facility] Comment on above: Performed By: #### C BC ####[facility] Rkbnqckyhg8400 [place] [address]Dr. Garima Pulliam EO # 0.0 103/ul Normal 0.0-0.7 [facility] Comment on above: Performed By: #### C BC ####[facility] Cwcekghpgv[address] [place], [place] [address]Dr. Chapisrenu Heraclio Eosinophils/100 WBC (Bld) 0.0 % Critically low 0.9-7.0 [facility] Comment on above: Performed By: #### C BC ####[facility] Fzrvxbmgvn[address] [place], [place] [address]Dr. Garima Pulliam Erythrocyte distribution width (RBC) [Ratio] 13.6 % Normal 11.0-15.0 [facility] Comment on above: Performed By: #### C BC ####[facility] Agtwtxcsdr[address] [place], [place] [address]Dr. Garima Pulliam Hematocrit (Bld) [Volume fraction] 48.2 % Normal 42.0-54.0 [facility] Comment on above: Performed By: #### C BC ####[facility] Arpjtnawce8[address] [place], [place] [address]Dr. Garima Pulliam Hemoglobin (Bld) [Mass/Vol] 16.0 g/dL Normal 14.0-18.0 [facility] Comment on above: Performed By: #### C BC ####[facility] Sbuoxggcxf[address] [place], [place] [address]Dr. Chapisrenu Heraclio IG # 0.02 10e3/ul Normal 0.00-0.03 [facility] Comment on above: Performed By: #### C BC ####[facility] Nukzjeefiz9755 [place] [id number]. Garima Pulliam IG % 0.3 % Normal 0.0-0.5 [facility] Comment on above: Performed By: #### C BC ####[facility] Mokczpyiab9239 [place] [address]Dr. Garima Heraclio LYMPH # 0.5 103/ul Critically low 1.2-3.8 [facility] Comment on above: Performed By: #### C BC ####[facility] Igscptrndo2372 [place] [address]Dr. Garima Heraclio Lymphocytes/100 WBC (Bld) 7.7 % Critically low 20.5-60.0 [facility] Comment on above: Performed By: #### C BC ####[facility] Okmrsbnihz[address] [place], [place] [address]Dr. Chapisrenu Pulliam MANUAL DIFF REQ NO Normal [facility] Comment on above: Performed By: #### C BC ####[facility] Ketwwhdpuu[address] [place], [place] [address]Dr. Garima Heraclio MCH (RBC) [Entitic mass] 30.6 pg Normal 25.9-34.0 [facility] Comment on above: Performed By: #### C BC ####[facility] Hdtyumykos[address] [place], [place] [address]Dr. Garima Pulliam MCHC (RBC) [Mass/Vol] 33.2 g/dL Normal 29.9-35.2 [facility] Comment on above: Performed By: #### C BC ####[facility] Habsgjtnja[address] [place], [place] [address]Dr. Garima Heraclio MCV (RBC) [Entitic vol] 92.2 fL Normal 80.0-94.0 [facility] Comment on above: Performed By: #### C BC ####[facility] Sivursmljx[address] [place], [place] [address]Dr. Garima Pulliam MONO # 0.0 103/ul Critically low 0.3-0.8 [facility] Comment on above: Performed By: #### C BC ####[facility] Eggrooxrfe1784 [place] [id number]. Garima Pulliam Monocytes/100 WBC (Bld) 0.4 % Critically low 1.7-12.0 [facility] Comment on above: Performed By: #### C BC ####[facility] Gzaydpuxbq7986 [place] [id number]. Garima Pulliam NEUT # 6.2 103/ul Normal 1.4-6.5 [facility] Comment on above: Performed By: #### C BC ####[facility] Hdrdkgmjwz7196 [place] [address]Dr. Garima Pulliam Neutrophils/100 WBC (Bld) 91.5 % Critically high 43.0-75.0 [facility] Comment on above: Performed By: #### C BC ####[facility] Geuabhlclq6048 [place] [address]Dr. Garima Pulliam Platelet mean volume (Bld) [Entitic vol] 8.7 fL Critically low 9.5-13.5 [facility] Comment on above: Performed By: #### C BC ####[facility] Thtfkryhms0046 [place] [address]Dr. Garima Pulliam PLT 179 103/ul Normal 150-450 [facility] Comment on above: Performed By: #### C BC ####[facility] Nmymstchli1392 [place] [id number]. Garima Pulliam RBC 5.23 106/ul Normal 4.70-6.10 [facility] Comment on above: Performed By: #### C BC ####[facility] Pqruwqqudv2776 [place] [address]Dr. Garima Pulliam WBC 6.7 103/ul Normal 4.0-11.0 [facility] Comment on above: Performed By: #### C BC ####[facility] Unwclinacu9061 [place] [address]Dr. Garima Pulliam PROF CHEM 8 (BAS METB)on Anion gap [Moles/Vol] 12.1 mmol/L Normal [facility] Comment on above: Performed By: #### B MP ####[facility] Piwswcinnz9311 [place] [id number]. Garima Pulliam Calcium [Mass/Vol] 8.7 mg/dL Normal 8.5-10.1 [facility] Comment on above: Performed By: #### B MP ####[facility] Aqxacgindk1512 [place] [id number]. Garima Pulliam Chloride [Moles/Vol] 105 mmol/L Normal 98-107 [facility] Comment on above: Performed By: #### B MP ####[facility] Hkgndomjib2764 [place] [address]Dr. Garima Pulliam CO2 [Moles/Vol] 25.5 mmol/L Normal 21.0-32.0 [facility] Comment on above: Performed By: #### B MP ####[facility] Wpxhsoxzwy3449 [place] [address]Dr. Garima Pulliam Creatinine [Mass/Vol] 0.63 mg/dL Critically low 0.70-1.30 [facility] Comment on above: Performed By: #### B MP ####[facility] Izcvqqkatw7632 [place] [address]Dr. Garima Pulliam EGFR-AF MACEDONIAN >60 Normal >=60 [facility] Comment on above: Performed By: #### B MP ####[facility] Kirscyqdwk3750 [place] [address]Dr. Garima Pulliam EGFR-NON AF MACEDONIAN >60 Normal >=60 [facility] Comment on above: Performed By: #### B MP ####[facility] Rohxlgsqne0772 [place] [address]Dr. Garima Pulliam Glucose [Mass/Vol] 162 mg/dL Critically high 74-106 [facility] Comment on above: Performed By: #### B MP ####[facility] Aspodetaln[address] [place], [place] [address]Dr. Garima Pulliam Potassium [Moles/Vol] 3.6 mmol/L Normal 3.5-5.1 [facility] Comment on above: Performed By: #### B MP ####[facility] Wtvcdpvsun[address] [place], [place] [address]Dr. Garima Pulliam Sodium [Moles/Vol] 139 mmol/L Normal 136-145 [facility] Comment on above: Performed By: #### B DAVID ####[facility] Ctruyeegan3567 [place] [address]Dr. Garima Pulliam Urea nitrogen [Mass/Vol] 9.0 mg/dL Normal 7.0-18.0 [facility] Comment on above: Performed By: #### B DAVID ####[facility] Prnvhlozlu1266 [place] [address]Dr. Garima Pulliam Urea nitrogen/Creatinine [Mass ratio] 14.3 mg/mg Normal [facility] Comment on above: Performed By: #### B DAVID ####[facility] Vbvllhpfwc7873 [place] [address]Dr. Chapisrenu Pulliam CARDIAC NASH ADMITon 09-12- 022 CK [Catalytic activity/Vol] 304 U/L Normal 39-308 [facility] Comment on above: Performed By: #### B NANCY HERNANDEZ ####[facility] Vtrcdixexw1032 [place] [address]Dr. Garima Pulliam CK.MB [Mass/Vol] 11.81 ng/mL Critically high <=3.60 [facility] Comment on above: Performed By: #### B NANCY HERNANDEZ ####[facility] Bmlmnqyzhw1333 [place] [address]Dr. Garima Heraclio HSTROP 13.3 pg/mL Normal 4.0-76.1 [facility] Comment on above: Result Comment: CUT- OFF POINTS HAVE BEEN ESTABLISHED BASED ON THE FOURTH UNIVERSAL DEFINITIONS OF MYOCARDIALINFARCTION. THE UPPER REFERENCE LIMIT (URL) OF TROPONIN, DEFINED THE 99TH PERCENTILE OFcTnI DISTRIBUTION IN A REFERENCE POPULATION, HAS BEEN CONFIRMED THE DECISION THRESHOLDFOR OR DIAGNOSIS. Performed By: #### B NANCY HERNANDEZ ####[facility] Zxpcwneczp0524 [place] [address]Dr. Garima Pulliam DORIS 133 ng/mL Critically high 16-96 [facility] Comment on above: Performed By: #### B NANCY HERNANDEZ ####[facility] Aqjjrrpaeo0903 [place] [address]Dr. Garima Pulliam CBC AUTO DIFFon 09-12-2022 BASO # 0.0 103/ul Normal 0.0-0.1 [facility] Comment on above: Performed By: #### C BC ####[facility] Zxqdmyrfle[address] [place], [place] [address]Dr. Garima Heraclio Basophils/100 WBC (Bld) 0.2 % Normal 0.2-2.0 [facility] Comment on above: Performed By: #### C BC ####[facility] Eucvybsnml[address] [place], [place] [address]Dr. Garima Heraclio EO # 0.2 103/ul Normal 0.0-0.7 [facility] Comment on above: Performed By: #### C BC ####[facility] Svfeiwmbkx[address] [place], [place] [address]Dr. Chapisrenu Pulliam Eosinophils/100 WBC (Bld) 1.3 % Normal 0.9-7.0 [facility] Comment on above: Performed By: #### C BC ####[facility] Iaqchxnlar[address] [place], [place] [address]Dr. Garima Pulliam Erythrocyte distribution width (RBC) [Ratio] 13.7 % Normal 11.0-15.0 [facility] Comment on above: Performed By: #### C BC ####[facility] Jezytmhisv[address] [place], [place] [address]Dr. Garima Pulliam Hematocrit (Bld) [Volume fraction] 46.4 % Normal 42.0-54.0 [facility] Comment on above: Performed By: #### C BC ####[facility] Qrhlksgmbb[address] [place], [place] [address]Dr. Garima Pulliam Hemoglobin (Bld) [Mass/Vol] 15.7 g/dL Normal 14.0-18.0 [facility] Comment on above: Performed By: #### C BC ####[facility] Gthxhndyvu[address] [place], [place] [address]Dr. Garima Pulliam IG # 0.04 10e3/ul Critically high 0.00-0.03 [facility] Comment on above: Performed By: #### C BC ####[facility] Lkfxjozhpc7459 [place] [id number]. Garima Pulliam IG % 0.3 % Normal 0.0-0.5 [facility] Comment on above: Performed By: #### C BC ####[facility] Lwntxbcisl0539 [place] [address]Dr. Garima Pulliam LYMPH # 1.7 103/ul Normal 1.2-3.8 [facility] Comment on above: Performed By: #### C BC ####[facility] Txrnxvzbuz5110 [place] [address]Dr. Garima Pulliam Lymphocytes/100 WBC (Bld) 11.5 % Critically low 20.5-60.0 [facility] Comment on above: Performed By: #### C BC ####[facility] Fxxehtljfr0403 [place] [address]Dr. Garima Pulliam MANUAL DIFF REQ NO Normal [facility] Comment on above: Performed By: #### C BC ####[facility] Iscsodijsr2184 [place] [address]Dr. Garima Pulliam MCH (RBC) [Entitic mass] 31.0 pg Normal 25.9-34.0 [facility] Comment on above: Performed By: #### C BC ####[facility] Pxqlozyaja8632 [place] [id number]. Garima Pulliam MCHC (RBC) [Mass/Vol] 33.8 g/dL Normal 29.9-35.2 [facility] Comment on above: Performed By: #### C BC ####[facility] Vqovhjfxrs4029 [place] [address]Dr. Garima Pulliam MCV (RBC) [Entitic vol] 91.7 fL Normal 80.0-94.0 [facility] Comment on above: Performed By: #### C BC ####[facility] Drejylqhhk8497 [place] [address]Dr. Garima Heraclio MONO # 0.8 103/ul Normal 0.3-0.8 [facility] Comment on above: Performed By: #### C BC ####[facility] Ljlpfobbbl0471 [place] [address]Dr. Garima Pulliam Monocytes/100 WBC (Bld) 5.2 % Normal 1.7-12.0 [facility] Comment on above: Performed By: #### C BC ####[facility] Tclvskhtil1991 [place] [address]Dr. Garima Pulliam NEUT # 11.7 103/ul Critically high 1.4-6.5 [facility] Comment on above: Performed By: #### C BC ####[facility] Ubrazquirr8885 [place] [address]Dr. Garima Pulliam Neutrophils/100 WBC (Bld) 81.5 % Critically high 43.0-75.0 [facility] Comment on above: Performed By: #### C BC ####[facility] Inybhbbmbq7016 [place] [address]Dr. Garima Pulliam Platelet mean volume (Bld) [Entitic vol] 8.6 fL Critically low 9.5-13.5 [facility] Comment on above: Performed By: #### C BC ####[facility] Kkjmfqgkgd9063 [place] [id number]. Garima Pulliam PLT 191 103/ul Normal 150-450 [facility] Comment on above: Performed By: #### C BC ####[facility] [address]juzxsltlo[address] [place], [place] [address]Dr. Garima Pulliam RBC 5.06 106/ul Normal 4.70-6.10 [facility] Comment on above: Performed By: #### C BC ####[facility] Eymhgdsdnx[address] [place], [place] [address]Dr. Garima Pulliam WBC 14.4 103/ul Critically high 4.0-11.0 [facility] Comment on above: Performed By: #### C BC ####[facility] Tuespysira[address] [address] [place], [place] [address]Dr. Garima Pulliam [facility]on 08-24 SARS-CoV-2 (COVID-19) RNA MARIE+probe Ql (Unsp spec) Not detected Normal NOT DETECTED [facility] Comment on above: Result Comment: When [...] for this test is supported by the [place] of Health and Human Service's declaration that [...] be used). Performed By: #### C VDTBH ####[facility] [address] [place], [place] [address]Dr. Garima Pulliam LACTATE/LACTIC ACIDon 2021 Lactate [Moles/Vol] 1.0 mmol/L Normal 0.4-1.[address] [facility] Comment on above: Performed By: #### L ACT ####[facility] [address] [place], [place] [address]Dr. Garima Pulliam PROF CHEM 8 (BAS METB)on Anion gap [Moles/Vol] 11.6 mmol/L Normal [facility] Comment on above: Performed By: #### B NANCY HERNANDEZ ####[facility] [address] [place] [address]Dr. Garima Pulliam Calcium [Mass/Vol] 9.2 mg/dL Normal 8.5-10.1 [facility] Comment on above: Performed By: #### B NANCY HERNANDEZ ####[facility] [address] [place] [address]Dr. Garima Pulliam Chloride [Moles/Vol] 105 mmol/L Normal 98-107 [facility] Comment on above: Performed By: #### B MP, CMADM ####[facility] [address] [place] [id number]. Garima Pulliam CO2 [Moles/Vol] 25.9 mmol/L Normal 21.0-32.0 [facility] Comment on above: Performed By: #### B DAVID, CMADM ####[facility] [address] [place] [address]Dr. Garima Pulliam Creatinine [Mass/Vol] 0.72 mg/dL Normal 0.70-1.30 [facility] Comment on above: Performed By: #### B DAVID, CMADM ####[facility] [address] [place] [id number]. Garima Pulliam EGFR-AF MACEDONIAN >60 Normal >=60 [facility] Comment on above: Performed By: #### B DAVID, CMADM ####[facility] [address] [place] [address]Dr. Chapisrenu Pulliam EGFR-NON AF MACEDONIAN >60 Normal >=60 [facility] Comment on above: Performed By: #### B DAVID, CMAANA ROSA ####[facility] [address] [place] [address]Dr. Garima Pulliam Glucose [Mass/Vol] 111 mg/dL Critically high 74-106 [facility] Comment on above: Performed By: #### B DAVID, CMADM ####[facility] [address] [place] [address]Dr. Chapisrenu Pulliam Potassium [Moles/Vol] 3.5 mmol/L Normal 3.5-5.1 [facility] Comment on above: Performed By: #### B DAVID, CMADM ####[facility] [address] [place] [address]Dr. Chapisrenu Pulliam Sodium [Moles/Vol] 139 mmol/L Normal 136-145 [facility] Comment on above: Performed By: #### B DAVID, CMADM ####[facility] [address] [place] [address]Dr. Garima Pulliam Urea nitrogen [Mass/Vol] 7.0 mg/dL Normal 7.0-18.0 [facility] Comment on above: Performed By: #### B DAVID, CMADM ####[facility] [address] [place], [place] [address]Ig. Garima Pulliam Urea nitrogen/Creatinine [Mass ratio] 9.7 mg/mg Normal [facility] Comment on above: Performed By: #### B MP, CMADM ####[facility] [address] [place], [place] [address]Mk. Garima Pulliam XR CHEST 1 Von 09-12-2022 XR CHEST 1 V Normal [facility] Encounters Encounter Date Encounter Type Care [...] Facility:H1 Payers Date Payer Category Payer Unknown [id number] 1960 Medicaid [id number] 1960 Unknown [id number] 1960 Unknown [id number] 1954 Unknown [id number] 2.16.84 0.1.037267.3.579.2.593 1954 Unknown [id number] 2.16.84 0.1.000639.3.579.2.593 1954 Unknown [id number] 2.16.84 0.1.146150.3.579.2.593 1954 Unknown [id number] 2.16.84 0.1.563615.3.579.2.593 1954 Unknown [id number] 2.16.84 0.1.239757.3.579.2.593 1954 Unknown [id number] 2.16.84 0.1.585537.3.579.2.593 1954 Unknown [id number] 2.16.84 0.1.341729.3.579.2.593 1954 Unknown [id number] 2.16.84 0.1.138747.3.579.2.593 1954 Unknown [id number] 2.16.84 0.1.517374.3.579.2.593 1954 Unknown [id number] 2.16.84 0.1.569218.3.579.2.593 1954 Unknown [id number] 2.16.84 0.1.931222.3.579.2.593 1954 Unknown [id number] 2.16.84 0.1.223707.3.579.2.593 1954 Unknown [id number] 2.16.84 0.1.799665.3.579.2.593 1954 Unknown [id number] 2.16.84 0.1.394424.3.579.2.593 1954 Unknown [id number] 2.16.84 0.1.703260.3.579.2.593 1954 Unknown [id number] 2.16.84 0.1.976349.3.579.2.593 1954 Unknown [id number] 2.16.84 0.1.479405.3.579.2.593 1954 Unknown [id number] 2.16.84 0.1.080282.3.579.2.593 1954 Unknown [id number] 2.16.84 0.1.953450.3.579.2.593 1954 Unknown [id number] 2.16.84 0.1.428508.3.579.2.593 Summary Purpose Family History No Family History Records Found Advance Directives No Advanced Directives Records Found Additional Source Comments (unrecognized sect ion and content) No Status Records Found INFORMATION SOURCE (unrecogn ized section and content) DATE CREATED AUTHOR 04/08/2023 [facility] FOR RECORDS PERTAINING TO PATIENTS WHO [...] BE BASED ON THE PRIMARY CLINICAL RECORDS. [facility]. provides no warranty or guarantee of the accuracy or completeness of information in this document.
--- NOTE | 2025-02-20 23:34 | ECG_ITS ---
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 Measurements Intervals [place] Rate: 73 P: 77 FL: 202 QRS: -13 QRSD: 114 T: -30 QT: 402 QTc: 428 Interpretive Statements 1100 Sinus rhythm 3434 Septal myocardial infarction, age undetermined 9150 abnormal ECG Compared to ECG 01/24/2025 15:31:23 No significant change Electronically Signed On 02-21-2025 20:09:43 EDT by GLORIA MESSINA M.D.
[2025-02-21 00:03] VITALS: PULSE 72; O2SAT 95
[2025-02-21] MEDS: IPRATROPIUM/ALBUTEROL SULFATE 3 ML AMPUL.NEB IH (00:03)
--- NOTE | 2025-02-21 00:10 | ED_ITS ---
HPI - SOB/Dyspnea General Chief Complaint: Shortness of Breath/Dyspnea Stated Complaint: SOB Time Seen by Provider: 02/20/25 23:20 Source: patient Mode of arrival: walk-in Limitations: no limitations History of Present Illness HPI Narrative: This 69-year-old male with a history of COPD presents for evaluation of generally not feeling good. He denies any fever or chest pain. We see him frequently in this emergency department for his COPD and medication noncompliance. He states he was driving around today and started feeling short of breath so he came to the emergency department. He states he ran out of his rescue inhaler. He did recently receive [place] [facility] [place]. He has no abdominal pain or back pain. He has chronic lower extremity swelling which is unchanged. Related Data Home Medications ?Medication ?Instructions ?Recorded ?Confirmed albuterol sulfate 90 mcg/actuation 2 inh inhalation Q6H PRN shortness 03/13/24 02/20/25 aerosol inhaler of breath or wheezing Previous Rx's ?Medication ?Instructions ?Recorded ipratropium 0.5 mg-albuterol 3 mg 3 ml inhalation Q4H PRN shortness 12/10/24 (2.5 mg base)/3 mL nebulization of breath #90 mL soln albuterol sulfate 2.5 mg/3 mL 2.5 mg (3 mL) inhalation Q6H PRN 01/24/25 (0.083 %) solution for nebulization shortness of breath or wheezing #90 mL losartan 100 mg tablet 100 mg PO DAILY #30 tabs 01/27/25 Allergies Allergy/AdvReac Type Severity Reaction Status Date / Time No Known Drug Allergies Allergy Verified 02/20/25 23:19 Review of Systems ROS Status of ROS 10 or more systems reviewed and unremark able except as noted in history and below [facility] Medical History Hypokalemia ?E87.6 - Hypokalemia (ICD-10) New onset type 2 diabetes mellitus ?E11.9 - Type 2 diabetes mellitus without complications (ICD-10) Lower extremity edema ?R60.0 - Localized edema (ICD-10) Edema ?R60.9 - Edema, unspecified (ICD-10) Acute hyperglycemia ?R73.9 - Hyperglycemia, unspecified (ICD-10) Tobacco abuse ?Z72.0 - Tobacco use (ICD-10) HTN (hypertension) ?I10 - Essential (primary) hypertension (ICD-10) Community acquired pneumonia ?J18.9 - Pneumonia, unspecified organism (ICD-10) Chronic obstructive pulmonary disease ?J44.9 - Chronic obstructive pulmonary disease, unspecified (ICD-10) Acute exacerbation of chronic obstructive pulmonary disease (COPD) ?J44.1 - Chronic obstructive pulmonary disease with (acute) exacerbation (ICD -10) RLL pneumonia ?J18.9 - Pneumonia, unspecified organism (ICD-10) COPD (chronic obstructive pulmonary disease) ?J44.9 - Chronic obstructive pulmonary disease, unspecified (ICD-10) Surgical History Hx of tonsillectomy ?Z90.89 - Acquired absence of other organs (ICD-10) Family History Mother Family history of cancer Family history of hypertension Father Family history of cancer Social History Within the past year, how often did you have a drink containing alcohol: 4 or more times a week Within the past year, how many standard drinks containing alcohol did you have on a typical day: 3 or 4 Within the past year, how often did you have six or more drinks on one occasion: less than monthly Total score: 3 Score interpretation: A score of 4 or more indicates drinking is likely to affect patient's safety. Smoking status: Current every day smoker Non-prescribed substance use: cannabis (any form) Previous occupational history: retired Highest level of school completed/degree received: high school graduate Are you now , , , , never or living with a partner: In a typical week, how many times do you talk on the telephone with family, friends, or neighbors: twice per week How often do you get together with friends or relatives: once per week How often do you attend restorationism or sabianism services: never Do you belong to any clubs or organizations such as restorationism groups unions, fraternal or athletic groups, or school groups: no Total score: 1 Score interpretation: A score of less than or equal to 1 indicates the most socially isolated. Little interest or pleasure in doing things: not at all Feeling down, depressed, or hopeless: not at all Feel stressed/tense/nervous/anxious/difficulty sleeping: not at all Do you think of yourself as: straight/heterosexual Gender Identity: male Exam Narrative Exam Narrative: Vital signs and Nursing Notes reviewed: Afebrile with a normal pulse, blood pressure is elevated at 170/100, he is at his baseline with a pulse ox of 95% on 2 L nasal cannula General: Awake, alert, oriented, no acute distress, lying comfortably on the stretcher-he is speaking in complete sentences with no respiratory distress HEENT: Normocephalic atraumatic, mucous membranes are moist and pink, eyes are clear, normal conjunctiva, vision is grossly intact, posterior pharynx is normal in appearance. Neck: Supple, no JVD Chest: Faint expiratory wheezing bilaterally without wheezing rhonchi or rales, patient is speaking complete sentences, pulse ox is at his baseline at 95% on 2 L nasal cannula CVS: Regular rate and rhythm S1-S2, no murmurs rubs or gallops, pulses are brisk and equal bilaterally ABD: Soft, nondistended, nontender, no rebound guarding or rigidity, bowel sounds are normal, no pulsatile masses appreciated Extremities: Chronic lower extremity swelling with pitting edema and overgrown toenails-a nail that had been previously removed by myself is growing back with no sign of cellulitis or infection Skin: Normal in appearance without rash,pallor, petechiae or purpura Neuro: No focal deficits Constitutional Vital Signs, click to edit/add: Last Vital Signs Temp 98.3 F 02/20/25 23:14 Pulse 72 02/21/25 00:03 Resp 20 02/21/25 00:03 BP 171/100 H 02/20/25 23:14 Pulse Ox 95 02/21/25 00:03 O2 Del Method Nasal Cannula 02/21/25 00:03 O2 Flow Rate 2 02/21/25 00:03 Course Vital Signs Vital signs: Vital Signs Temperature 98.3 F 02/20/25 23:14 Pulse Rate 88 02/20/25 23:14 Respiratory Rate 24 H 02/20/25 23:14 Blood Pressure 171/100 H 02/20/25 23:14 Pulse Oximetry 90 L 02/20/25 23:14 Oxygen Delivery Method Room Air 02/20/25 23:14 Temperature 98.3 F 02/20/25 23:14 Pulse Rate 72 02/21/25 00:03 Respiratory Rate 20 02/21/25 00:03 Blood Pressure 171/100 H 02/20/25 23:14 Pulse Oximetry 95 02/21/25 00:03 Oxygen Delivery Method Nasal Cannula 02/21/25 00:03 Oxygen Delivery Flow Rate 2 02/21/25 00:03 MDM - SOB/Dyspnea MDM Narrative Medical decision making narrative: This 69-year-old male who is well-known to this emergency department has a history of COPD presents for evaluation of generally not feeling good today. He denies any chest pain but states he is having increasing shortness of breath and ran out of his rescue inhaler. EKG is a sinus rhythm at 73 bpm with no acute changes. I ordered an IV and a cardiac workup on him but he declined it stating he would just rather have a shot so he can go home. He was given an IM dose of Solu-Medrol and a DuoNeb. 1 view chest x-ray shows chronic changes without any acute pulmonary infiltrate, effusion, there is a normal mediastinum and normal cardiac borders. On reevaluation he states he is feeling better. He states he would feel a lot better if he won the lottery but he feels comfortable being discharged home. He will be given an albuterol MDI and a prescription for an MDI to use as needed. He states he did recently receive a nebulizer medication from the [place]. ECG Data Attestation: I personally reviewed and interpreted this ECG as follows: (Sinus rhythm at 73 bpm, nonspecific ST changes, normal axis, no acute ST segment elevation or T wave inversion) Discharge Plan Discharge Chief Complaint: Shortness of Breath/Dyspnea Clinical Impression: COPD (chronic obstructive pulmonary disease) Prescriptions / Home Meds: No Action albuterol sulfate 90 mcg/actuation HFA aerosol inhaler 2 inh inhalation Q6H PRN (Reason: shortness of breath or wheezing) albuterol sulfate 2.5 mg /3 mL (0.083 %) solution for nebulization 2.5 mg inhalation Q6H PRN (Reason: shortness of breath or wheezing) Qty: 90 0RF ipratropium-albuterol 0.5 mg-3 mg(2.5 mg base)/3 mL solution for nebulization 3 ml inhalation Q4H PRN (Reason: shortness of breath) Qty: 90 0RF Rx Instructions: until breathing returns to target peak flow/parameters losartan 100 mg tablet 100 mg PO DAILY Qty: 30 0RF Print Language: Kosovan Instructions: COPD (Chronic Obstructive Pulmonary Disease) (ED) Referrals: SERG DUENAS [Primary Care Provider] - 1 week
[2025-02-21] MEDS: METHYLPREDNISOLONE SOD SUCC PF 125 MG/2 ML VIAL IM (00:14)
[2025-02-21] MEDS: ALBUTEROL SULFATE 200 PUFF/6.7 GM INHALER IH (00:38)
[2025-02-21 00:55] VITALS: BP 170/102; PULSE 72; O2SAT 92
== END 2025-02-21 00:58 | disposition home or self-care (01) ==
LOC: ER 23:30
PROVIDERS: Emergency Provider Emergency Medicine
DX: J44.9 Chronic obstructive pulmonary disease, unspecified (principal); R06.02 Shortness of breath; F17.200 Nicotine dependence, unspecified, uncomplicated
CPT/HCPCS: 71045; 80053; 84484; 93005; 94640; 96372; 99285; J2919

== ENCOUNTER 2025-03-03 15:10 | Emergency (ER) | payer MEDICARE, SELFPAY ==
[2025-03-03 15:14] VITALS: BP 204/97; PULSE 70; TEMP 36.8; O2SAT 97; BMI 23.7
[2025-03-03 15:17] VITALS: BP 211/105; O2SAT 95
--- NOTE | 2025-03-03 15:29 | PC.NURSE ---
This RN called [facility] to verify if patient has been picking up prescriptions from the pharmacy. Pharmacy states the last time patient picked up prescriptions was 12/25/2024 and 01/06/2025 and that multiple prescriptions has been placed since and patient has never picked them up. This RN asked if prescriptions could be picked up and available at this time and pharmacy staff states yes that prescriptions are ready at this time. Physician notified.
--- NOTE | 2025-03-03 15:31 | ED_ITS ---
HPI HPI - General Adult General Chief complaint: Shortness of Breath/Dyspnea Stated complaint: Shortness of breath Time Seen by Provider: 03/03/25 15:13 Source: patient Mode of arrival: Wheelchair History of Present Illness HPI narrative: 69-year-old presents to the emergency department for shortness of breath. He has a history of COPD and states he needs an albuterol treatment. He states he has run out of his inhaler. He has an empty inhaler with him. We contacted his pharmacy and he has multiple prescriptions for albuterol inhaler and albuterol solution waiting for him at the pharmacy. No fever or cough or complaints to me of any chest pain. Related Data Home Medications ?Medication ?Instructions ?Recorded ?Confirmed albuterol sulfate 90 mcg/actuation 2 inh inhalation Q6H PRN shortness 03/13/24 02/20/25 aerosol inhaler of breath or wheezing Previous Rx's ?Medication ?Instructions ?Recorded ipratropium 0.5 mg-albuterol 3 mg 3 ml inhalation Q4H PRN shortness 12/10/24 (2.5 mg base)/3 mL nebulization of breath #90 mL soln albuterol sulfate 2.5 mg/3 mL 2.5 mg (3 mL) inhalation Q6H PRN 01/24/25 (0.083 %) solution for nebulization shortness of breath or wheezing #90 mL losartan 100 mg tablet 100 mg PO DAILY #30 tabs 01/27/25 Allergies Allergy/AdvReac Type Severity Reaction Status Date / Time No Known Drug Allergies Allergy Verified 02/20/25 23:19 Opioid HPI Opioid Management Most Recent Opioid Data: Last Pain Scale 3 01/27/25 19:02 01/27/25 Last ORT Total Score 0 01/29/24 06:36 01/29/24 Last ORT Risk Category Low Risk 01/29/24 06:36 01/29/24 Review of Systems ROS Narrative A ten point review of systems is negative except as noted above. PFSH PFS Medical History Hypokalemia ?E87.6 - Hypokalemia (ICD-10) New onset type 2 diabetes mellitus ?E11.9 - Type 2 diabetes mellitus without complications (ICD-10) Lower extremity edema ?R60.0 - Localized edema (ICD-10) Edema ?R60.9 - Edema, unspecified (ICD-10) Acute hyperglycemia ?R73.9 - Hyperglycemia, unspecified (ICD-10) Tobacco abuse ?Z72.0 - Tobacco use (ICD-10) HTN (hypertension) ?I10 - Essential (primary) hypertension (ICD-10) Community acquired pneumonia ?J18.9 - Pneumonia, unspecified organism (ICD-10) Chronic obstructive pulmonary disease ?J44.9 - Chronic obstructive pulmonary disease, unspecified (ICD-10) Acute exacerbation of chronic obstructive pulmonary disease (COPD) ?J44.1 - Chronic obstructive pulmonary disease with (acute) exacerbation (ICD-10) RLL pneumonia ?J18.9 - Pneumonia, unspecified organism (ICD-10) COPD (chronic obstructive pulmonary disease) ?J44.9 - Chronic obstructive pulmonary disease, unspecified (ICD-10) Surgical History Hx of tonsillectomy ?Z90.89 - Acquired absence of other organs (ICD-10) Family History Mother Family history of cancer Family history of hypertension Father Family history of cancer Social History Within the past year, how often did you have a drink containing alcohol: 4 or more times a week Within the past year, how many standard drinks containing alcohol did you have on a typical day: 3 or 4 Within the past year, how often did you have six or more drinks on one occasion: less than monthly Total score: 3 Score interpretation: A score of 4 or more indicates drinking is likely to affect patient's safety. Smoking status: Current every day smoker Non-prescribed substance use: cannabis (any form) Previous occupational history: retired Highest level of school completed/degree received: high school graduate Are you now , , , , never or living with a partner: In a typical week, how many times do you talk on the telephone with family, friends, or neighbors: twice per week How often do you get together with friends or relatives: once per week How often do you attend restorationism or methodist services: never Do you belong to any clubs or organizations such as restorationism groups unions, fraternal or athletic groups, or school groups: no Total score: 1 Score interpretation: A score of less than or equal to 1 indicates the most socially isolated. Little interest or pleasure in doing things: not at all Feeling down, depressed, or hopeless: not at all Feel stressed/tense/nervous/anxious/difficulty sleeping: not at all Do you think of yourself as: straight/heterosexual Gender Identity: male Exam Narrative Exam Narrative: Nurses note and vital signs reviewed and patient is not hypoxic. General: The patient appears in no apparent distress. Patient is resting comfortably, sitting in a chair. Skin: Warm, dry, no pallor noted. There is no rash noted. Head: Normocephalic, atraumatic Eye: Normal conjunctiva, no drainage Ears, Nose, Mouth, and Throat: oral mucosa is moist. Nares patent. Cardiovascular: Regular Rate and Rhythm Respiratory: Patient is in no distress, no accessory muscle use, lungs show few rhonchi. Good air movement present Back: non-tender GI: Soft and nontender Musculoskeletal: The patient has no evidence of calf tenderness, no pitting edema, symmetrical pulses noted bilaterally Neurological: A&O normal speech Psychiatric: Cooperative Constitutional Vital Signs, click to edit/add: Last Vital Signs Temp 98.2 F 03/03/25 15:14 Pulse 62 03/03/25 15:42 Resp 18 03/03/25 15:42 BP 204/97 H 03/03/25 15:14 Pulse Ox 97 03/03/25 15:42 O2 Del Method Room Air 03/03/25 15:42 Course Vital Signs Vital signs: Vital Signs Temperature 98.2 F 03/03/25 15:14 Pulse Rate 70 03/03/25 15:14 Respiratory Rate 18 03/03/25 15:14 Blood Pressure 204/97 H 03/03/25 15:14 Pulse Oximetry 97 03/03/25 15:14 Oxygen Delivery Method Room Air 03/03/25 15:14 Temperature 98.2 F 03/03/25 15:14 Pulse Rate 62 03/03/25 15:42 Respiratory Rate 18 03/03/25 15:42 Blood Pressure 204/97 H 03/03/25 15:14 Pulse Oximetry 97 03/03/25 15:42 Oxygen Delivery Method Room Air 03/03/25 15:42 Medical Decision Making MDM Narrative Medical decision making narrative: He was given an aerosol treatment here. We contacted his pharmacy and he has numerous prescriptions waiting for him for both inhalers and albuterol solution. He was informed and was instructed to go to his pharmacy and get his medications. Treatment diagnosis and follow-up were discussed with the patient. Differential Diagnosis Differential Diagnosis: COPD Discharge Plan Discharge Chief Complaint: Shortness of Breath/Dyspnea Clinical Impression: COPD (chronic obstructive pulmonary disease) Patient Disposition: Home, Self-Care Time of Disposition Decision: 15:33 Condition: Good Mode of Transportation: Private Vehicle Prescriptions / Home Meds: No Action albuterol sulfate 90 mcg/actuation HFA aerosol inhaler 2 inh inhalation Q6H PRN (Reason: shortness of breath or wheezing) albuterol sulfate 2.5 mg /3 mL (0.083 %) solution for nebulization 2.5 mg inhalation Q6H PRN (Reason: shortness of breath or wheezing) Qty: 90 0RF ipratropium-albuterol 0.5 mg-3 mg(2.5 mg base)/3 mL solution for nebulization 3 ml inhalation Q4H PRN (Reason: shortness of breath) Qty: 90 0RF Rx Instructions: until breathing returns to target peak flow/parameters losartan 100 mg tablet 100 mg PO DAILY Qty: 30 0RF Print Language: Chinese Instructions: COPD (Chronic Obstructive Pulmonary Disease) (ED) Referrals: SERG DUENAS [Primary Care Provider] - 1 week
[2025-03-03] MEDS: ALBUTEROL SULFATE 2.5 MG/3 ML VIAL NEB IH (15:40)
[2025-03-03 15:41] VITALS: O2SAT 97
[2025-03-03 15:42] VITALS: PULSE 62; O2SAT 97
[2025-03-03 16:07] VITALS: BP 154/112; O2SAT 95
== END 2025-03-03 16:10 | disposition home or self-care (01) ==
PROVIDERS: Emergency Provider Emergency Medicine
DX: J44.9 Chronic obstructive pulmonary disease, unspecified (principal); R06.02 Shortness of breath; F17.200 Nicotine dependence, unspecified, uncomplicated
CPT/HCPCS: 94640; 99283

== ENCOUNTER 2025-03-10 19:30 | Emergency (ER) | payer MEDICARE, SELFPAY ==
--- OUTSIDE RECORDS SUMMARY | 2025-03-10 19:42 | XMS_ITS | CCD ---
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 Garima Pulliam Basophils/100 WBC (Bld) 0.3 % Normal 0.2-2.0 [facility] Comment on above: Performed By: #### C BC ####[facility] Ezperojybl9969 [place] [address]DrAdalberto Pulliam EO # 0.3 103/ul Normal 0.0-0.7 [facility] Comment on above: Performed By: #### C BC ####[facility] Bfxwseouwc[address] [place], [place] [address]Dr. Garima Pulliam Eosinophils/100 WBC (Bld) 2.8 % Normal 0.9-7.0 [facility] Comment on above: Performed By: #### C BC ####[facility] Wqggizzwhz0729 [place] [address]Dr. Garima Pulliam Erythrocyte distribution width (RBC) [Ratio] 13.4 % Normal 11.0-15.0 [facility] Comment on above: Performed By: #### C BC ####[facility] Zacilxesuq3993 [place] [address]Dr. Garima Pulliam Hematocrit (Bld) [Volume fraction] 45.7 % Normal 42.0-54.0 [facility] Comment on above: Performed By: #### C BC ####[facility] Xnfnkrdyjo4096 [place] [address]Dr. Garima Pulliam Hemoglobin (Bld) [Mass/Vol] 15.2 g/dL Normal 14.0-18.0 [facility] Comment on above: Performed By: #### C BC ####[facility] Qeqwxsrecz3800 [place] [address]Dr. Garima Pulliam IG # 0.02 10e3/ul Normal 0.00-0.03 [facility] Comment on above: Performed By: #### C BC ####[facility] Hvvgftnqkh2032 [place] [address]Dr. Garima Pullima IG % 0.2 % Normal 0.0-0.5 [facility] Comment on above: Performed By: #### C BC ####[facility] Wxawehgywt9012 [place] [address]Dr. Garima Pulliam LYMPH # 2.1 103/ul Normal 1.2-3.8 [facility] Comment on above: Performed By: #### C BC ####[facility] Rcbruzxbuh7976 [place] [address]Dr. Garima Pulliam Lymphocytes/100 WBC (Bld) 23.7 % Normal 20.5-60.0 [facility] Comment on above: Performed By: #### C BC ####[facility] Ozeqweqghl5930 [place] [address]Dr. Garima Heraclio MANUAL DIFF REQ NO Normal [facility] Comment on above: Performed By: #### C BC ####[facility] Dphxpdmmyr0555 [place] [address]Dr. Garima Pulliam MCH (RBC) [Entitic mass] 30.4 pg Normal 25.9-34.0 [facility] Comment on above: Performed By: #### C BC ####[facility] Pcxyjudajl9370 [place] [address]Dr. Garima Heraclio MCHC (RBC) [Mass/Vol] 33.3 g/dL Normal 29.9-35.2 [facility] Comment on above: Performed By: #### C BC ####[facility] Huhcschyxt[address] [place], [place] [address]Dr. Chapisrenu Pulliam MCV (RBC) [Entitic vol] 91.4 fL Normal 80.0-94.0 [facility] Comment on above: Performed By: #### C BC ####[facility] Dwpdqqhzcz[address] [place], [place] [address]Dr. Garima Heraclio MONO # 0.7 103/ul Normal 0.3-0.8 [facility] Comment on above: Performed By: #### C BC ####[facility] Omolbtpzgv[address] [place], [place] [address]Dr. Chapisrenu Pulliam Monocytes/100 WBC (Bld) 8.3 % Normal 1.7-12.0 [facility] Comment on above: Performed By: #### C BC ####[facility] Sdjfvtwsxt1126 [place] [address]Dr. Chapisrenu Heraclio NEUT # 5.8 103/ul Normal 1.4-6.5 [facility] Comment on above: Performed By: #### C BC ####[facility] Tqsgpgiyru8[address] [place], [place] [address]Dr. Garima Pulliam Neutrophils/100 WBC (Bld) 64.7 % Normal 43.0-75.0 [facility] Comment on above: Performed By: #### C BC ####[facility] Nwhzrhcimi5735 [place] [address]Dr. Garima Pulliam Platelet mean volume (Bld) [Entitic vol] 8.6 fL Critically low 9.5-13.5 [facility] Comment on above: Performed By: #### C BC ####[facility] Awuthnuetd3786 [place] [address]Dr. Garima Pulliam PLT 230 103/ul Normal 150-450 [facility] Comment on above: Performed By: #### C BC ####[facility] Hdgcfrmgre9884 [place] [address]Dr. Chapisrenu Heraclio RBC 5.00 106/ul Normal 4.70-6.10 [facility] Comment on above: Performed By: #### C BC ####[facility] Bowskatjnu5400 [place] [address]Dr. Garima Heraclio WBC 9.0 103/ul Normal 4.0-11.0 [facility] Comment on above: Performed By: #### C BC ####[facility] Rmbxpyrazt3169 [place] [address]Dr. Garima Pulliam MAGNESIUMon 04-04-2023 Magnesium [Mass/Vol] 1.8 mg/dL Normal 1.8-2.4 [facility] Comment on above: Performed By: #### M G ####[facility] Lehmdramjt5148 [place] [address]Dr. Chapisrenu Pulliam PROF 14(COMP METB)on 023 Albumin [Mass/Vol] 3.8 g/dL Normal 3.4-5.0 [facility] Comment on above: Performed By: #### C MP ####[facility] Pdauclnggi1444 [place] [address]Dr. Garima Pulliam Albumin/Globulin [Mass ratio] 1.2 {ratio} Normal [facility] Comment on above: Performed By: #### C MP ####[facility] Pjrozycdyh5109 [place] [address]Dr. Garima Heraclio ALP [Catalytic activity/Vol] 84 U/L Normal 46-116 [facility] Comment on above: Performed By: #### C MP ####[facility] Ayejrcjugm9771 [place] [phone]. Garima Pulliam ALT [Catalytic activity/Vol] 31 U/L Normal 16-63 [facility] Comment on above: Performed By: #### C MP ####[facility] Leixwbzise5759 [place] [address]Dr. Garima Pulliam Anion gap [Moles/Vol] 12.2 mmol/L Normal [facility] Comment on above: Performed By: #### C MP ####[facility] Sgycyombqg3559 [place] [address]Dr. Garima Pulliam AST [Catalytic activity/Vol] 23 U/L Normal 15-37 [facility] Comment on above: Performed By: #### C MP ####[facility] Rhwsdaylgn620[address] [place], [place] [address]Dr. Garima Pulliam Bilirubin [Mass/Vol] 0.5 mg/dL Normal 0.2-1.0 [facility] Comment on above: Performed By: #### C MP ####[facility] Ulsbsmefeo[address] [place], [place] [address]Dr. Garima Pulliam Calcium [Mass/Vol] 9.2 mg/dL Normal 8.5-10.1 [facility] Comment on above: Performed By: #### C MP ####[facility] Wvxwjalkji66[address] [place], [place] [address]Dr. Garima Pulliam Chloride [Moles/Vol] 103 mmol/L Normal 98-107 [facility] Comment on above: Performed By: #### C MP ####[facility] Fcvmlsxilt1166 [place] [address]Dr. Garima Pulliam CO2 [Moles/Vol] 28.5 mmol/L Normal 21.0-32.0 [facility] Comment on above: Performed By: #### C MP ####[facility] Soiwkmghsn[address] [place], [place] [address]Dr. Garima Pulliam Creatinine [Mass/Vol] 0.74 mg/dL Normal 0.70-1.30 [facility] Comment on above: Performed By: #### C MP ####[facility] Xcyhiiznxq4465 [place] [phone]. Garima Pulliam EGFR-AF NAURUAN >60 Normal >=60 [facility] Comment on above: Performed By: #### C MP ####[facility] Aqusugdtel0946 [place] [address]Dr. Garima Heraclio EGFR-NON AF NAURUAN >60 Normal >=60 [facility] Comment on above: Performed By: #### C MP ####[facility] Udjrmlmfwa8157 [place] [phone]. Garima Heraclio Globulin (S) [Mass/Vol] 3.1 g/dL Normal [facility] Comment on above: Performed By: #### C MP ####[facility] Nnsucloksn[address] [place], [place] [address]Dr. Garima Heraclio Glucose [Mass/Vol] 93 mg/dL Normal 74-106 [facility] Comment on above: Performed By: #### C MP ####[facility] Nzdtvnkrov33[address] [place], [place] [address]Dr. Garima Heraclio Potassium [Moles/Vol] 3.7 mmol/L Normal 3.5-5.1 [facility] Comment on above: Performed By: #### C MP ####[facility] Herqkdqegb065[address] [place], [place] [address]Dr. Garima Heraclio Protein [Mass/Vol] 6.9 g/dL Normal 6.4-8.2 [facility] Comment on above: Performed By: #### C MP ####[facility] Jtgzannrcc145[address] [place], [place] [address]Dr. Garima Heraclio Sodium [Moles/Vol] 140 mmol/L Normal 136-145 [facility] Comment on above: Performed By: #### C MP ####[facility] Ledyleqdki4035[address] [place], [place] [address]Dr. Garima Pulliam Urea nitrogen [Mass/Vol] 8.0 mg/dL Normal 7.0-18.0 [facility] Comment on above: Performed By: #### C MP ####[facility] Npteoniiac[address] [place], [place] [address]Dr. Garima Pulliam Urea nitrogen/Creatinine [Mass ratio] 10.8 mg/mg Normal [facility] Comment on above: Performed By: #### C DAVID ####[facility] Cxuowkhhil7538 [place] [address]Dr. Garima Pulliam AMMONIAon 03-30-2023 Ammonia (P) [Moles/Vol] 11 umol/L Normal 11-32 [facility] Comment on above: Performed By: #### A MM ####[facility] [address]mclzmebhs[address] [place], [place] [address]Dr. Garima Pulliam CARDIAC NASH ADMITon 023 CK [Catalytic activity/Vol] 232 U/L Normal 39-308 [facility] Comment on above: Performed By: #### C NANCY HERNANDEZ ####[facility] Vsbpysdqva3400 [place] [address]Dr. Chapisrenu Pulliam CK.MB [Mass/Vol] 4.83 ng/mL Critically high <=3.60 [facility] Comment on above: Performed By: #### C NANCY HERNANDEZ ####[facility] Npqdfulbxy[address] [place], [place] [address]Dr. Garima Pulliam HSTROP 10.5 pg/mL Normal 4.0-76.1 [facility] Comment on above: Result Comment: CUT- OFF POINTS HAVE BEEN ESTABLISHED BASED ON THE FOURTH UNIVERSAL DEFINITIONS OF MYOCARDIALINFARCTION. THE UPPER REFERENCE LIMIT (URL) OF TROPONIN, DEFINED THE 99TH PERCENTILE OFcTnI DISTRIBUTION IN A REFERENCE POPULATION, HAS BEEN CONFIRMED THE DECISION THRESHOLDFOR ME DIAGNOSIS. Performed By: #### C NANCY HENRANDEZ ####[facility] Atxgdwmsij[address] [place], [place] [address]Dr. Garima Heraclio DORIS 79 ng/mL Normal 16-96 [facility] Comment on above: Performed By: #### C NANCY HERNANDEZ ####[facility] Cdjazdwdgk[address] [place], [place] [address]Dr. Garima Heraclio CBC AUTO DIFFon 03-30-2023 BASO # 0.0 103/ul Normal 0.0-0.1 [facility] Comment on above: Performed By: #### C BC ####[facility] Iavcjfcaid0243 [place] [phone]. Garima Pulliam Basophils/100 WBC (Bld) 0.1 % Critically low 0.2-2.0 [facility] Comment on above: Performed By: #### C BC ####[facility] Ihkeyouxlt3872 [place] [phone]. Garima Pulliam EO # 0.3 103/ul Normal 0.0-0.7 [facility] Comment on above: Performed By: #### C BC ####[facility] W[address]xsiofn[address] [place], [place] [phone]. Garima Pulliam Eosinophils/100 WBC (Bld) 3.3 % Normal 0.9-7.0 [facility] Comment on above: Performed By: #### C BC ####[facility] Yqfnrpqgna[address] [place], [place] [phone]. Garima Pulliam Erythrocyte distribution width (RBC) [Ratio] 13.5 % Normal 11.0-15.0 [facility] Comment on above: Performed By: #### C BC ####[facility] Ytyyfvpdmw[address] [place], [place] [phone]. Garima Pulliam Hematocrit (Bld) [Volume fraction] 42.9 % Normal 42.0-54.0 [facility] Comment on above: Performed By: #### C BC ####[facility] [address]vqsnr[address] [place], [place] [phone]. Garima Pulliam Hemoglobin (Bld) [Mass/Vol] 13.9 g/dL Critically low 14.0-18.0 [facility] Comment on above: Performed By: #### C BC ####[facility] Ezaiujvvbi4828 [place] [phone]. Garima Pulliam IG # 0.01 10e3/ul Normal 0.00-0.03 [facility] Comment on above: Performed By: #### C BC ####[facility] X[address]qnpwcadb[address] [place], [place] [phone]. Garima Pulliam IG % 0.1 % Normal 0.0-0.5 [facility] Comment on above: Performed By: #### C BC ####[facility] Ixvebjwqvk3516 [place] [phone]. Garima Pulliam LYMPH # 1.7 103/ul Normal 1.2-3.8 [facility] Comment on above: Performed By: #### C BC ####[facility] Clinaajmbm5870 [place], [place] [address]Do. Garima Pulliam Lymphocytes/100 WBC (Bld) 22.8 % Normal 20.5-60.0 [facility] Comment on above: Performed By: #### C BC ####[facility] Hseirelnho6556 [place] [phone]. Garima Heraclio MANUAL DIFF REQ NO Normal [facility] Comment on above: Performed By: #### C BC ####[facility] Ctieeodntw7935 [place] [phone]. Garima Heraclio MCH (RBC) [Entitic mass] 30.5 pg Normal 25.9-34.0 [facility] Comment on above: Performed By: #### C BC ####[facility] Bqjjvvfqhq8859 [place] [phone]. Garima Pulliam MCHC (RBC) [Mass/Vol] 32.4 g/dL Normal 29.9-35.2 [facility] Comment on above: Performed By: #### C BC ####[facility] Yirebyyuwt6589 [place] [phone]. Garima Heraclio MCV (RBC) [Entitic vol] 94.1 fL Critically high 80.0-94.0 [facility] Comment on above: Performed By: #### C BC ####[facility] Pwamaliloj2295 [place] [phone]. Garima Heraclio MONO # 0.7 103/ul Normal 0.3-0.8 [facility] Comment on above: Performed By: #### C BC ####[facility] Opkmihnygs2034 [place] [phone]. Garima Heraclio Monocytes/100 WBC (Bld) 8.6 % Normal 1.7-12.0 [facility] Comment on above: Performed By: #### C BC ####[facility] Joechbrajv1344 [place] [phone]. Garima Pulliam NEUT # 4.9 103/ul Normal 1.4-6.5 [facility] Comment on above: Performed By: #### C BC ####[facility] Qasengvunu8868 [place] [phone]. Garima Pulliam Neutrophils/100 WBC (Bld) 65.1 % Normal 43.0-75.0 [facility] Comment on above: Performed By: #### C BC ####[facility] Yspetdpjhq0271 [place] [phone]. Garima Pulliam Platelet mean volume (Bld) [Entitic vol] 8.5 fL Critically low 9.5-13.5 [facility] Comment on above: Performed By: #### C BC ####[facility] Jbzzcwenar1643 [place] [phone]. Garima Pulliam PLT 219 103/ul Normal 150-450 [facility] Comment on above: Performed By: #### C BC ####[facility] Sxphtowipe0902 [place] [phone]. Garima Pulliam RBC 4.56 106/ul Critically low 4.70-6.10 [facility] Comment on above: Performed By: #### C BC ####[facility] Qlstoxqirz9198 [place] [phone]. Garima Pulliam WBC 7.6 103/ul Normal 4.0-11.0 [facility] Comment on above: Performed By: #### C BC ####[facility] Gbnbemjkcb1241 [place] [phone]. Garima Pulliam LACTATE/LACTIC ACIDon 2022 Lactate [Moles/Vol] 1.2 mmol/L Normal 0.4-2.0 [facility] Comment on above: Performed By: #### L ACT ####[facility] Bwbpowosgu3492 [place] [phone]. Garima Pulliam MAGNESIUMon 03-30-2023 Magnesium [Mass/Vol] 1.8 mg/dL Normal 1.8-2.4 [facility] Comment on above: Performed By: #### M G ####[facility] Kmhujhfhdq3583 [place] [address]Dr. Garima Pulliam PROF 14(COMP METB)on 023 Albumin [Mass/Vol] 3.5 g/dL Normal 3.4-5.0 [facility] Comment on above: Performed By: #### C DAVID, CMAANA ROSA ####[facility] Tphnpifuov8831 [place] [address]Dr. Garima Pulliam Albumin/Globulin [Mass ratio] 1.2 {ratio} Normal [facility] Comment on above: Performed By: #### C DAVID, CMAANA ROSA ####[facility] Lyflstkoyg9737 [place] [address]Dr. Garima Pulliam ALP [Catalytic activity/Vol] 85 U/L Normal 46-116 [facility] Comment on above: Performed By: #### C DAVID, CMAANA ROSA ####[facility] Ttdepxqkbn[address] [place], [place] [address]Dr. Garima Pulliam ALT [Catalytic activity/Vol] 29 U/L Normal 16-63 [facility] Comment on above: Performed By: #### C DAVID, CMAANA ROSA ####[facility] Pwfjkuszys4398 [place] [address]Dr. Garima Pulliam Anion gap [Moles/Vol] 8.0 mmol/L Normal [facility] Comment on above: Performed By: #### C DAVID, CMAANA ROSA ####[facility] Jmbzujobts3409 [place] [address]Dr. Garima Pulliam AST [Catalytic activity/Vol] 18 U/L Normal 15-37 [facility] Comment on above: Performed By: #### C DAVID, CMADM ####[facility] Bnlxgmgpwm6595 [place] [address]Dr. Garima Pulliam Bilirubin [Mass/Vol] 0.4 mg/dL Normal 0.2-1.0 [facility] Comment on above: Performed By: #### C DAVID, CMADM ####[facility] Mrbmndjmzs9861 [place] [address]Dr. Garima Pulliam Calcium [Mass/Vol] 8.8 mg/dL Normal 8.5-10.1 [facility] Comment on above: Performed By: #### C DAVID, NANCY ####[facility] Ptqdrgeqdp9853 [place] [address]Dr. Chapisrenu Pulliam Chloride [Moles/Vol] 108 mmol/L Critically high 98-107 [facility] Comment on above: Performed By: #### C DAVID, NANCY ####[facility] Ergixzdbdr8831 [place] [address]Dr. Garima Pulliam CO2 [Moles/Vol] 29.6 mmol/L Normal 21.0-32.0 [facility] Comment on above: Performed By: #### C NANCY HERNANDEZ ####[facility] Igcdyljkob[address] [place], [place] [address]Dr. Garima Pulliam Creatinine [Mass/Vol] 0.77 mg/dL Normal 0.70-1.30 [facility] Comment on above: Performed By: #### C NANCY HERNANDEZ ####[facility] Afeyjfyatl[address] [place], [place] [address]Dr. Garima Heraclio EGFR-AF NAURUAN >60 Normal >=60 [facility] Comment on above: Performed By: #### C NANCY HERNANDEZ ####[facility] [address]qbujcbbk[address] [place], [place] [address]Dr. Garima Heraclio EGFR-NON AF NAURUAN >60 Normal >=60 [facility] Comment on above: Performed By: #### C NANCY HERNANDEZ ####[facility] Odatelsnyp2798 [place] [address]Dr. Garima Pulliam Globulin (S) [Mass/Vol] 2.8 g/dL Normal [facility] Comment on above: Performed By: #### C NANCY HERNANDEZ ####[facility] Hwnedfnzyu9903 [place] [address]Dr. Garima Pulliam Glucose [Mass/Vol] 207 mg/dL Critically high 74-106 [place] Comment on above: Performed By: #### C NANCY HERNANDEZ ####[facility] Efboxjbpkq[address] [place], [place] [address]Dr. Garima Pulliam Potassium [Moles/Vol] 4.6 mmol/L Normal 3.5-5.1 [facility] Comment on above: Performed By: #### C DAVID, NANCY ####[facility] Xczebimgpf1264 [place] [address]Dr. Garima Pulliam Protein [Mass/Vol] 6.3 g/dL Critically low 6.4-8.2 [facility] e [facility] Comment on above: Performed By: #### C DAVID, NANCY ####[facility] Gulkiwmtal6697 [place] [address]Dr. Gairma Pulliam Sodium [Moles/Vol] 141 mmol/L Normal 136-145 [facility] Comment on above: Performed By: #### C DAVID, NANCY ####[facility] [address]bs[address]uf[address] [place] [address]Dr. Garima Pulliam Urea nitrogen [Mass/Vol] 9.0 mg/dL Normal 7.0-18.0 [facility] Comment on above: Performed By: #### C DAVID, NANCY ####[facility] Pbcaswodrm[address] [place] [address]Dr. Garima Pulliam Urea nitrogen/Creatinine [Mass ratio] 11.7 mg/mg Normal [facility] Comment on above: Performed By: #### C DAVID, NANCY ####[facility] Bapdomaowe[address] [place] [address]Dr. Garima Pulliam XR CHEST 1 Von 03-30-2023 XR CHEST 1 V Normal [facility] BNPon 03-27-2023 Natriuretic peptide B (Bld) [Mass/Vol] 251.0 pg/mL Normal <=900.0 [facility] Comment on above: Performed By: #### C MP, BNP, LIPID ####[facility] Hnrwuqvecx5[address] [place] [address]Dr. Garima Pulliam GLYCOHEMOGLOBIN A1Con 2022 ADA RECOMMENDATION SEE BELOW Normal [facility] Comment on above: Result Comment: ADA RECOMMENDED LIMIT 4.0 - 6.0 ADA THERAPEUTIC TARGET < 7.0 ACTION SUGGESTED > 7.0 Performed By: #### A 1C ####[facility] Dentuevhyw[address] [place] [address]Dr. Garima Pulliam Glucose [Mass/Vol] 180 mg/dL Normal [facility] Comment on above: Performed By: #### A 1C ####[facility] Arofhzenft[address] [place], [place] [address]Dr. Chapisrenu Pulliam HbA1c (Bld) [Mass fraction] 7.9 % Critically high 4.5-6.2 [facility] Comment on above: Performed By: #### A 1C ####[facility] Soaopnrzhg[address] [place], [place] [address]Dr. Garima Pulliam HEMOGRAM AND PLATELon 2022 Hematocrit (Bld) [Volume fraction] 45.7 % Normal 42.0-54.0 [facility] Comment on above: Performed By: #### H H ####[facility] Lpcookgbwf[address] [place], [place] [address]Dr. Garima Pulliam Hemoglobin (Bld) [Mass/Vol] 15.1 g/dL Normal 14.0-18.0 [facility] Comment on above: Performed By: #### H H ####[facility] Hguyskuaxc[address] [place], [place] [address]Dr. Garima Pulliam MCH (RBC) [Entitic mass] 30.0 pg Normal 25.9-34.0 [facility] Comment on above: Performed By: #### H H ####[facility] Bfmsquzjek66[address] [place], [place] [address]Dr. Garima Pulliam MCHC (RBC) [Mass/Vol] 33.0 g/dL Normal 29.9-35.2 [facility] Comment on above: Performed By: #### H H ####[facility] Rzmgrnvyqp94[address] [place], [place] [address]Dr. Garima Pulliam MCV (RBC) [Entitic vol] 90.7 fL Normal 80.0-94.0 [facility] Comment on above: Performed By: #### H H ####[facility] Qfmcgrdlgs[address] [place], [place] [address]Dr. Garima Pulliam PLT 222 103/ul Normal 150-450 [facility] Comment on above: Performed By: #### H H ####[facility] Tbqydznlfc4365 [place] [phone]. Garima Pulliam RBC 5.04 106/ul Normal 4.70-6.10 [facility] Comment on above: Performed By: #### H H ####[facility] Wuqfhtosic98[address] [place] [phone]. Garima Pulliam WBC 8.7 103/ul Normal 4.0-11.0 [facility] Comment on above: Performed By: #### H H ####[facility] Ozgbigqgxa0454 [place] [phone]. Garima Pulliam LIPID PROFILEon 03-27-2023 CHOL-HDL RATIO NORM SEE BELOW Normal [facility] Comment on above: Result Comment: 3.3 - 4.4 LOW RISK 4.4 - 7.1 AVERAGE RISK 7.1 - 11.0 MODERATE RISK >11.0 HIGH RISK Performed By: #### C MP, BNP, LIPID ####[facility] Mzanoxmtvc500[address] [place] [address]Dr. Garima Pulliam Cholesterol [Mass/Vol] 113 mg/dL Normal <=200 [facility] Comment on above: Performed By: #### C MP, BNP, LIPID ####[facility] Hlvcdzkpnk9564 [place] [address]Dr. Garima Pulliam Cholesterol in HDL [Mass/Vol] 51 mg/dL Normal 40-60 [facility] Comment on above: Performed By: #### C MP, BNP, LIPID ####[facility] Cqxcvpifvi1743 [place] [address]Dr. Garima Pulliam Cholesterol in LDL [Mass/Vol] 49.8 mg/dL Normal [facility] Comment on above: Performed By: #### C MP, BNP, LIPID ####[facility] Pcvextehbs4791 [place] [address]Dr. Garima Pulliam Cholesterol.total/Cho lesterol in HDL [Mass ratio] 2.2 {ratio} Normal [facility] Comment on above: Performed By: #### C MP, BNP, LIPID ####[facility] Qcozmeiddt1674 [place] [address]Dr. Garima Pulliam HDL NORMAL > or = 60 mg/dl - LOW CARDIOVASCULAR RISK <40 mg/dl - HIGH CARDIOVASCULAR RISK Normal [facility] Comment on above: Performed By: #### C MP, BNP, LIPID ####[facility] Eemzjiwujz[address] [place] [address]Dr. Garima Pulliam LDL CALC NORMAL SEE BELOW Normal [facility] Comment on above: Result Comment: <100 mg/dl OPTIMAL 100 - 129 mg/dl NEAR OR ABOVE OPTIMAL 130 - 159 mg/dl BORDERLINE HIGH 160 - 189 mg/dl HIGH >190 mg/dl VERY HIGH Performed By: #### C MP, BNP, LIPID ####[facility] Iozalvicpz6[address] [place] [address]Dr. Garima Pulliam Triglyceride [Mass/Vol] 61 mg/dL Normal <=150 [facility] Comment on above: Performed By: #### C MP, BNP, LIPID ####[facility] Obhevlnzyu3512 [place] [address]Dr. Garima Pulliam VLDL CALC 12.2 mg/dL Normal [facility] Comment on above: Performed By: #### C MP, BNP, LIPID ####[facility] Ovmlysmcmj7709 [place] [address]Dr. Garima Pulliam PROF 14(COMP METB)on 023 Albumin [Mass/Vol] 3.5 g/dL Normal 3.4-5.0 [facility] Comment on above: Performed By: #### C MP, BNP, LIPID ####[facility] Dizwereqhw6375 [place] [address]Dr. Garima Pulliam Albumin/Globulin [Mass ratio] 1.2 {ratio} Normal [facility] Comment on above: Performed By: #### C MP, BNP, LIPID ####[facility] Yzfxlqthhy8343 [place] [address]Dr. Garima Pulliam ALP [Catalytic activity/Vol] 82 U/L Normal 46-116 [facility] Comment on above: Performed By: #### C MP, BNP, LIPID ####[facility] Qtfevipiez1353 [place] [address]Dr. Garima Pulliam ALT [Catalytic activity/Vol] 33 U/L Normal 16-63 [facility] Comment on above: Performed By: #### C MP, BNP, LIPID ####[facility] Kpbsktoixw2617 [place] [address]Dr. Garima Pulliam Anion gap [Moles/Vol] 9.9 mmol/L Normal [facility] Comment on above: Performed By: #### C MP, BNP, LIPID ####[facility] Ytqaecdwwu7207 [place] [address]Dr. Garima Pulliam AST [Catalytic activity/Vol] 24 U/L Normal 15-37 [facility] Comment on above: Performed By: #### C MP, BNP, LIPID ####[facility] Yqfmdiyuvk3435 [place] [address]Dr. Garima Pulliam Bilirubin [Mass/Vol] 0.6 mg/dL Normal 0.2-1.0 [facility] Comment on above: Performed By: #### C MP, BNP, LIPID ####[facility] Tjhhttagbl2756 [place] [address]Dr. Garima Pulliam Calcium [Mass/Vol] 9.2 mg/dL Normal 8.5-10.1 [facility] Comment on above: Performed By: #### C MP, BNP, LIPID ####[facility] Bhclsvccvc2246 [place] [address]Dr. Garima Pulliam Chloride [Moles/Vol] 106 mmol/L Normal 98-107 [facility] Comment on above: Performed By: #### C MP, BNP, LIPID ####[facility] Fysisrwkuu9520 [place] [address]Dr. Garima Pulliam CO2 [Moles/Vol] 32.3 mmol/L Critically high 21.0-32.0 [facility] Comment on above: Performed By: #### C MP, BNP, LIPID ####[facility] Oadaqwhjvx5660 [place] [address]Dr. Garima Pulliam Creatinine [Mass/Vol] 0.70 mg/dL Normal 0.70-1.30 [facility] Comment on above: Performed By: #### C MP, BNP, LIPID ####[facility] Yemhypuqvg4316 [place] [phone]. Garima Pulliam EGFR-AF NAURUAN >60 Normal >=60 [facility] Comment on above: Performed By: #### C MP, BNP, LIPID ####[facility] Lpckhbarlo0539 [place] [phone]. Garima Pulliam EGFR-NON AF NAURUAN >60 Normal >=60 [facility] Comment on above: Performed By: #### C MP, BNP, LIPID ####[facility] Uyargkhzaz6783 [place] [address]Dr. Garima Pulliam Globulin (S) [Mass/Vol] 2.9 g/dL Normal [facility] Comment on above: Performed By: #### C MP, BNP, LIPID ####[facility] Ldpcmdsyzu1855 [place] [address]Dr. Garima Pulliam Glucose [Mass/Vol] 111 mg/dL Critically high 74-106 [place] Comment on above: Performed By: #### C MP, BNP, LIPID ####[facility] Hepxfgbgtd0520 [place] [address]Dr. Garima Pulliam Potassium [Moles/Vol] 4.2 mmol/L Normal 3.5-5.1 [facility] Comment on above: Performed By: #### C MP, BNP, LIPID ####[facility] Duleppwtce3422 [place] [address]Dr. Garima Pulliam Protein [Mass/Vol] 6.4 g/dL Normal 6.4-8.2 [facility] Comment on above: Performed By: #### C MP, BNP, LIPID ####[facility] Ssbhuwlyvj2670 [place] [address]Dr. Garima Pulliam Sodium [Moles/Vol] 144 mmol/L Normal 136-145 [facility] Comment on above: Performed By: #### C MP, BNP, LIPID ####[facility] Mkxhhppsug2150 [place] [address]Dr. Garima Pulliam Urea nitrogen [Mass/Vol] 7.0 mg/dL Normal 7.0-18.0 [facility] Comment on above: Performed By: #### C MP, BNP, LIPID ####[facility] Prlgxymvub[address] [place], [place] [address]Dr. Garima Pulliam Urea nitrogen/Creatinine [Mass ratio] 10.0 mg/mg Normal [facility] Comment on above: Performed By: #### C MP, BNP, LIPID ####[facility] Ubdoxunsxo504[address] [place], [place] [address]Dr. Garima Pulliam BNPon 03-22-2023 Natriuretic peptide B (Bld) [Mass/Vol] 103.0 pg/mL Normal <=900.0 [facility] Comment on above: Performed By: #### B OCCUPATIONAL HEALTH SPECIALIST, BMP ####[facility] Iiaanmajzi386[address] [place], [place] [address]Dr. Garima Pulliam CBC AUTO DIFFon 03-22-2023 BASO # 0.0 103/ul Normal 0.0-0.1 [facility] Comment on above: Performed By: #### C BC ####[facility] Kvjxpbsajq7[address] [place], [place] [address]Dr. Garima Heraclio Basophils/100 WBC (Bld) 0.3 % Normal 0.2-2.0 [facility] Comment on above: Performed By: #### C BC ####[facility] Ovlhrznhpc20[address] [place], [place] [address]Dr. Garima Pulliam EO # 0.2 103/ul Normal 0.0-0.7 [facility] Comment on above: Performed By: #### C BC ####[facility] Tctxfansnr104[address] [place], [place] [address]Dr. Garima Pulliam Eosinophils/100 WBC (Bld) 2.2 % Normal 0.9-7.0 [facility] Comment on above: Performed By: #### C BC ####[facility] Krzxvdtnrp[address] [place], [place] [address]Dr. Garima Pulliam Erythrocyte distribution width (RBC) [Ratio] 13.2 % Normal 11.0-15.0 [facility] Comment on above: Performed By: #### C BC ####[facility] Elyqcozbuh6557 [place] [phone]. Garima Pulliam Hematocrit (Bld) [Volume fraction] 43.4 % Normal 42.0-54.0 [facility] Comment on above: Performed By: #### C BC ####[facility] Lrvkueeppq9364 [place] [address]Dr. Garima Heraclio Hemoglobin (Bld) [Mass/Vol] 14.3 g/dL Normal 14.0-18.0 [facility] Comment on above: Performed By: #### C BC ####[facility] Cpqbffowby5942 [place] [address]Dr. Garima Pulliam IG # 0.02 10e3/ul Normal 0.00-0.03 [facility] Comment on above: Performed By: #### C BC ####[facility] Pqusfstpvd2733 [place] [address]Dr. Garima Pulliam IG % 0.3 % Normal 0.0-0.5 [facility] Comment on above: Performed By: #### C BC ####[facility] Mauphsxzpo3328 [place] [address]Dr. Chapisrenu Pulliam LYMPH # 2.0 103/ul Normal 1.2-3.8 [facility] Comment on above: Performed By: #### C BC ####[facility] Mpfueqtiph5202 [place] [address]Dr. Chapisrenu Pulliam Lymphocytes/100 WBC (Bld) 24.8 % Normal 20.5-60.0 [facility] Comment on above: Performed By: #### C BC ####[facility] Lekkmvubna5218 [place] [address]Dr. Chapisrenu Pulliam MANUAL DIFF REQ NO Normal [facility] Comment on above: Performed By: #### C BC ####[facility] Dmgrkbsbsb1815 [place] [address]Dr. Garima Heraclio MCH (RBC) [Entitic mass] 30.0 pg Normal 25.9-34.0 [facility] Comment on above: Performed By: #### C BC ####[facility] [address]eyqatlre[address] [place], [place] [address]Dr. Garima Pulliam MCHC (RBC) [Mass/Vol] 32.9 g/dL Normal 29.9-35.2 [facility] Comment on above: Performed By: #### C BC ####[facility] Xurqclwhao7240 [place] [phone]. Garima Pulliam MCV (RBC) [Entitic vol] 91.0 fL Normal 80.0-94.0 [facility] Comment on above: Performed By: #### C BC ####[facility] Ucdiqqsyvc4441 [place] [phone]. Garima Heraclio MONO # 0.8 103/ul Normal 0.3-0.8 [facility] Comment on above: Performed By: #### C BC ####[facility] Huciguzwiv1445 [place] [address]Dr. Chapisrenu Pulliam Monocytes/100 WBC (Bld) 9.7 % Normal 1.7-12.0 [facility] Comment on above: Performed By: #### C BC ####[facility] Iuejpprkui2972 [place] [address]Dr. Garima Pulliam NEUT # 4.9 103/ul Normal 1.4-6.5 [facility] Comment on above: Performed By: #### C BC ####[facility] Tzrfyujiif9190 [place] [phone]. Garima Heraclio Neutrophils/100 WBC (Bld) 62.7 % Normal 43.0-75.0 [facility] Comment on above: Performed By: #### C BC ####[facility] Zafictbajv9189 [place] [phone]. Garima Heraclio Platelet mean volume (Bld) [Entitic vol] 8.8 fL Critically low 9.5-13.5 [facility] Comment on above: Performed By: #### C BC ####[facility] Qzfdckrftv5623 [place] [phone]. Garima Heraclio PLT 198 103/ul Normal 150-450 [facility] Comment on above: Performed By: #### C BC ####[facility] Cxrvtemlgz2915 [place] [phone]. Garima Heraclio RBC 4.77 106/ul Normal 4.70-6.10 [facility] Comment on above: Performed By: #### C BC ####[facility] Iejzrmheiq9357 [place] [phone]. Garima Heraclio WBC 7.9 103/ul Normal 4.0-11.0 [facility] Comment on above: Performed By: #### C BC ####[facility] Aligycmvmm1948 [place] [phone]. Garima Heraclio D-DIMERon 03-22-2023 D-DIMER 0.85 mg/L FEU Critically high <=0.59 [facility] Comment on above: Performed By: #### D DIM ####[facility] Yuicnfwlao7206 [place] [address]Dr. Garima Pulliam D-DIMER COMMENTS SEE BELOW Normal [facility] Comment on above: Result [...] generalized hospitalization. Performed By: #### D DIM ####[facility] Tgqetggens509[address] [place], [place] [address]Dr. Garima Pulliam PROF CHEM 8 (BAS METB)on Anion gap [Moles/Vol] 6.9 mmol/L Normal [facility] Comment on above: Performed By: #### B OCCUPATIONAL HEALTH SPECIALIST, BMP ####[facility] Cyxxevkcds6491 [place] [address]Dr. Garima Pulliam Calcium [Mass/Vol] 8.9 mg/dL Normal 8.5-10.1 [facility] Comment on above: Performed By: #### B OCCUPATIONAL HEALTH SPECIALIST, BMP ####[facility] Srenjmigch8838 [place] [address]Dr. Garima Pulliam Chloride [Moles/Vol] 101 mmol/L Normal 98-107 [facility] Comment on above: Performed By: #### B OCCUPATIONAL HEALTH SPECIALIST, BMP ####[facility] Ghzuepovlu265[address] [place], [place] [address]Dr. Chapisrenu Heraclio CO2 [Moles/Vol] 30.7 mmol/L Normal 21.0-32.0 [facility] Comment on above: Performed By: #### B OCCUPATIONAL HEALTH SPECIALIST, BMP ####[facility] Jkmjrurlxi339[address] [place], [place] [address]Dr. Garima Pulliam Creatinine [Mass/Vol] 0.82 mg/dL Normal 0.70-1.30 [facility] Comment on above: Performed By: #### B OCCUPATIONAL HEALTH SPECIALIST, BMP ####[facility] Cnkvjxdobb[address] [place], [place] [address]Dr. Garima Pulliam EGFR-AF NAURUAN >60 Normal >=60 [facility] Comment on above: Performed By: #### B OCCUPATIONAL HEALTH SPECIALIST, BMP ####[facility] Pssvetqxcy35[address] [place], [place] [address]Dr. Chapisrenu Heraclio EGFR-NON AF NAURUAN >60 Normal >=60 [facility] Comment on above: Performed By: #### B OCCUPATIONAL HEALTH SPECIALIST, BMP ####[facility] Tcigbrvpqn584[address] [place], [place] [address]Dr. Garima Pulliam Glucose [Mass/Vol] 339 mg/dL Critically high 74-106 [facility] Comment on above: Performed By: #### B OCCUPATIONAL HEALTH SPECIALIST, BMP ####[facility] Eehouqahoz9[address] [place], [place] [address]Dr. aGrima Pulliam Potassium [Moles/Vol] 3.6 mmol/L Normal 3.5-5.1 [facility] Comment on above: Performed By: #### B OCCUPATIONAL HEALTH SPECIALIST, BMP ####[facility] Cdurmmguhk817[address] [place], [place] [address]Dr. Garima Pulliam Sodium [Moles/Vol] 135 mmol/L Critically low 136-145 [facility] Comment on above: Performed By: #### B OCCUPATIONAL HEALTH SPECIALIST, BMP ####[facility] Ugowbqewse301[address] [place], [place] [address]Dr. Garima Pulliam Urea nitrogen [Mass/Vol] 11.0 mg/dL Normal 7.0-18.0 [facility] Comment on above: Performed By: #### B OCCUPATIONAL HEALTH SPECIALIST, BMP ####[facility] Vxcffvuykp423[address] [place], [place] [address]Dr. Garima Pulliam Urea nitrogen/Creatinine [Mass ratio] 13.4 mg/mg Normal [facility] Comment on above: Performed By: #### B OCCUPATIONAL HEALTH SPECIALIST, BMP ####[facility] Ictofwngoo[address] [place], [place] [address]Dr. Garima Pulliam US VERONICA DOP LEG BILon 023 US VERONICA DOP LEG BENOIT Normal [facility] BNPon 03-18-2023 Natriuretic peptide B (Bld) [Mass/Vol] 226.0 pg/mL Normal <=900.0 [facility] Comment on above: Performed By: #### B OCCUPATIONAL HEALTH SPECIALIST, BMP ####[facility] Cnhpxuftrs555[address] [place], [place] [address]Dr. Garima Pulliam CBC AUTO DIFFon 03-18-2023 BASO # 0.0 103/ul Normal 0.0-0.1 [facility] Comment on above: Performed By: #### C BC ####[facility] Tvrbjoyzmi[address] [place], [place] [address]Dr. Garima Heraclio Basophils/100 WBC (Bld) 0.2 % Normal 0.2-2.0 [facility] Comment on above: Performed By: #### C BC ####[facility] Seeerbjijk31[address] [place], [place] [address]Dr. Garima Pulliam EO # 0.3 103/ul Normal 0.0-0.7 [facility] Comment on above: Performed By: #### C BC ####[facility] Rjlypbmzwl[address] [place], [place] [address]Dr. Garima Heraclio Eosinophils/100 WBC (Bld) 2.5 % Normal 0.9-7.0 [facility] Comment on above: Performed By: #### C BC ####[facility] Uicswspour259[address] [place], [place] [address]Dr. Garima Heraclio Erythrocyte distribution width (RBC) [Ratio] 13.2 % Normal 11.0-15.0 [facility] Comment on above: Performed By: #### C BC ####[facility] Vfuagvjije4922 [place] [address]DrAdalberto Pulliam Hematocrit (Bld) [Volume fraction] 45.8 % Normal 42.0-54.0 [facility] Comment on above: Performed By: #### C BC ####[facility] Gdyiohyxwy5523 [place] [address]DrAdalberto Pulliam Hemoglobin (Bld) [Mass/Vol] 15.3 g/dL Normal 14.0-18.0 [facility] Comment on above: Performed By: #### C BC ####[facility] Knxprghtbu459[address] [place], [place] [address]DrAdalberto Pulliam IG # 0.02 10e3/ul Normal 0.00-0.03 [facility] Comment on above: Performed By: #### C BC ####[facility] Veenhmimcc[address] [place], [place] [address]DrAdalberto Pulliam IG % 0.2 % Normal 0.0-0.5 [facility] Comment on above: Performed By: #### C BC ####[facility] Wdyugdpytr[address] [place], [place] [address]DrAdalberto Pulliam LYMPH # 1.8 103/ul Normal 1.2-3.8 [facility] Comment on above: Performed By: #### C BC ####[facility] Fmgtqvedei[address] [place], [place] [address]DrAdalberto Pulliam Lymphocytes/100 WBC (Bld) 18.3 % Critically low 20.5-60.0 [facility] Comment on above: Performed By: #### C BC ####[facility] Jxhhxfvgwn[address] [place], [place] [address]DrAdalberto Pulliam MANUAL DIFF REQ NO Normal [facility] Comment on above: Performed By: #### C BC ####[facility] Ybzndmjgpu4423 [place] [address]DrAdalberto Pulliam MCH (RBC) [Entitic mass] 30.5 pg Normal 25.9-34.0 [facility] Comment on above: Performed By: #### C BC ####[facility] Huyyxnjozy0991 [place] [address]DrAdalberto Pulliam MCHC (RBC) [Mass/Vol] 33.4 g/dL Normal 29.9-35.2 [facility] Comment on above: Performed By: #### C BC ####[facility] Cmwsazpppf8358 [place] [address]DrAdalberto Pulliam MCV (RBC) [Entitic vol] 91.2 fL Normal 80.0-94.0 [facility] Comment on above: Performed By: #### C BC ####[facility] Rkqwxvdjar15[address] [place], [place] [address]DrAdalberto Pulliam MONO # 0.8 103/ul Normal 0.3-0.8 [facility] Comment on above: Performed By: #### C BC ####[facility] Ssnxbsluqi94[address] [place], [place] [address]DrAdalberto Pulliam Monocytes/100 WBC (Bld) 7.6 % Normal 1.7-12.0 [facility] Comment on above: Performed By: #### C BC ####[facility] Ltvxvorygp74[address] [place], [place] [address]DrAdalberto Pulliam NEUT # 7.0 103/ul Critically high 1.4-6.5 [facility] Comment on above: Performed By: #### C BC ####[facility] Zlvjkbrifl[address] [place], [place] [address]DrAdalberto Pulliam Neutrophils/100 WBC (Bld) 71.2 % Normal 43.0-75.0 [facility] Comment on above: Performed By: #### C BC ####[facility] Hhmrhftlhd02[address] [place], [place] [address]DrAdalberto Pulliam Platelet mean volume (Bld) [Entitic vol] 8.9 fL Critically low 9.5-13.5 [facility] Comment on above: Performed By: #### C BC ####[facility] Tmgjexqdwp8716[address] [place], [place] [address]DrAdalberto Pulliam PLT 217 103/ul Normal 150-450 [facility] Comment on above: Performed By: #### C BC ####[facility] Bvlsspygqs0196 [place] [address]Dr. Garima Heraclio RBC 5.02 106/ul Normal 4.70-6.10 [facility] Comment on above: Performed By: #### C BC ####[facility] Ewtwlagfhy[address] [place], [place] [address]Dr. Garima Pulliam WBC 9.8 103/ul Normal 4.0-11.0 [facility] Comment on above: Performed By: #### C BC ####[facility] Xgcqsonoww544[address] [place], [place] [address]Dr. Garima Heraclio CRPon 03-18-2023 CRP 0.1 mg/dL Normal <=1.0 [facility] Comment on above: Performed By: #### C RP ####[facility] Zoiuelnmaa9[address] [place], [place] [address]Dr. Garima Heraclio PROF CHEM 8 (BAS METB)on Anion gap [Moles/Vol] 10.4 mmol/L Normal [facility] Comment on above: Performed By: #### B OCCUPATIONAL HEALTH SPECIALIST, BMP ####[facility] Ejyfkkwflh147[address] [place], [place] [address]Dr. Garima Heraclio Calcium [Mass/Vol] 8.8 mg/dL Normal 8.5-10.1 [facility] Comment on above: Performed By: #### B OCCUPATIONAL HEALTH SPECIALIST, BMP ####[facility] Druvaymled1723[address] [place], [place] [address]Dr. Garima Heraclio Chloride [Moles/Vol] 97 mmol/L Critically low 98-107 [facility] Comment on above: Performed By: #### B OCCUPATIONAL HEALTH SPECIALIST, BMP ####[facility] Kgkiwutuoo[address] [place], [place] [address]Dr. Garima Pulliam CO2 [Moles/Vol] 31.2 mmol/L Normal 21.0-32.0 [facility] Comment on above: Performed By: #### B OCCUPATIONAL HEALTH SPECIALIST, BMP ####[facility] Oltpfytjvw[address] [place], [place] [address]Dr. Garima Pulliam Creatinine [Mass/Vol] 0.91 mg/dL Normal 0.70-1.30 [facility] Comment on above: Performed By: #### B OCCUPATIONAL HEALTH SPECIALIST, BMP ####[facility] Ehqszystot3141 [place] [address]Dr. Garima Pulliam EGFR-AF NAURUAN >60 Normal >=60 [facility] Comment on above: Performed By: #### B OCCUPATIONAL HEALTH SPECIALIST, BMP ####[facility] Epuxkzbyog5464 [place] [phone]. Garima Pulliam EGFR-NON AF NAURUAN >60 Normal >=60 [facility] Comment on above: Performed By: #### B OCCUPATIONAL HEALTH SPECIALIST, BMP ####[facility] Ncjghdgung2991 [place] [address]Dr. Garima Pulliam Glucose [Mass/Vol] 315 mg/dL Critically high 74-106 [facility] Comment on above: Performed By: #### B OCCUPATIONAL HEALTH SPECIALIST, BMP ####[facility] Jvngolizxv6481 [place] [address]Dr. Garima Pulliam Potassium [Moles/Vol] 3.6 mmol/L Normal 3.5-5.1 [facility] Comment on above: Performed By: #### B OCCUPATIONAL HEALTH SPECIALIST, BMP ####[facility] Emfebtmzkj2596 [place] [address]Dr. Garima Pulliam Sodium [Moles/Vol] 135 mmol/L Critically low 136-145 [facility] Comment on above: Performed By: #### B OCCUPATIONAL HEALTH SPECIALIST, BMP ####[facility] Hpdyibljdd3983 [place] [address]Dr. Garima Pulliam Urea nitrogen [Mass/Vol] 7.0 mg/dL Normal 7.0-18.0 [facility] Comment on above: Performed By: #### B OCCUPATIONAL HEALTH SPECIALIST, BMP ####[facility] Chxdndehzn2843 [place] [address]Dr. Garima Pulliam Urea nitrogen/Creatinine [Mass ratio] 7.7 mg/mg Normal [facility] Comment on above: Performed By: #### B OCCUPATIONAL HEALTH SPECIALIST, BMP ####[facility] Ptgkgckumd1595 [place] [address]Dr. Garima Pulliam SED RATE WESTERGRENon 2022 SED RATE 8 mm/hr Normal <=20 [facility] Comment on above: Performed By: #### S EDR ####[facility] Mrooucdkse923[address] [place], [place] [address]Dr. Garima Pulliam BNPon 03-16-2023 Natriuretic peptide B (Bld) [Mass/Vol] 241.0 pg/mL Normal <=900.0 [facility] Comment on above: Performed By: #### B OCCUPATIONAL HEALTH SPECIALIST, BMP, HSTROPN ####[facility] Qpqqsepeln499[address] [place], [place] [address]Dr. Garima Heraclio CBC AUTO DIFFon 03-16-2023 BASO # 0.0 103/ul Normal 0.0-0.1 [facility] Comment on above: Performed By: #### C BC ####[facility] Yucugbdcpm830[address] [place], [place] [address]Dr. Chapisrenu Pulliam Basophils/100 WBC (Bld) 0.2 % Normal 0.2-2.0 [facility] Comment on above: Performed By: #### C BC ####[facility] Vmphtbbfwn647[address] [place], [place] [address]Dr. Garima Pulliam EO # 0.2 103/ul Normal 0.0-0.7 [facility] Comment on above: Performed By: #### C BC ####[facility] Kqdzxrrxrq259[address] [place], [place] [address]Dr. Chapisrenu Pulliam Eosinophils/100 WBC (Bld) 2.7 % Normal 0.9-7.0 [facility] Comment on above: Performed By: #### C BC ####[facility] Cyodbbzvbm98[address] [place], [place] [address]Dr. Garima Pulliam Erythrocyte distribution width (RBC) [Ratio] 13.1 % Normal 11.0-15.0 [facility] Comment on above: Performed By: #### C BC ####[facility] Mxkglhbimo7817[address] [place], [place] [address]Dr. Garima Pulliam Hematocrit (Bld) [Volume fraction] 41.8 % Critically low 42.0-54.0 [facility] Comment on above: Performed By: #### C BC ####[facility] Rqpdyfrczb8392 [place] [address]Dr. Garima Pulliam Hemoglobin (Bld) [Mass/Vol] 14.0 g/dL Normal 14.0-18.0 [facility] Comment on above: Performed By: #### C BC ####[facility] Hxuzhgmikw0421 [place] [address]Dr. Garima Pulliam IG # 0.03 10e3/ul Normal 0.00-0.03 [facility] Comment on above: Performed By: #### C BC ####[facility] Udbxesybgi3177 [place] [address]Dr. Garima Pulliam IG % 0.3 % Normal 0.0-0.5 [facility] Comment on above: Performed By: #### C BC ####[facility] Hcjxqzjmmi644[address] [place], [place] [address]Dr. Chapisrenu Pulliam LYMPH # 2.1 103/ul Normal 1.2-3.8 [facility] Comment on above: Performed By: #### C BC ####[facility] Newcssswuq205[address] [place], [place] [address]Dr. Chapisrenu Pulliam Lymphocytes/100 WBC (Bld) 24.2 % Normal 20.5-60.0 [facility] Comment on above: Performed By: #### C BC ####[facility] Hdgengcyue9252 [place] [address]Dr. Garima Pulliam MANUAL DIFF REQ NO Normal [facility] Comment on above: Performed By: #### C BC ####[facility] Aqbwvgyzso9101 [place] [address]Dr. Garima Pulliam MCH (RBC) [Entitic mass] 30.2 pg Normal 25.9-34.0 [facility] Comment on above: Performed By: #### C BC ####[facility] Lmijeetlhw5459 [place] [address]Dr. Garima Pulliam MCHC (RBC) [Mass/Vol] 33.5 g/dL Normal 29.9-35.2 [facility] Comment on above: Performed By: #### C BC ####[facility] Sqrxinoryb1997 [place] [phone]. Garima Pulliam MCV (RBC) [Entitic vol] 90.1 fL Normal 80.0-94.0 [facility] Comment on above: Performed By: #### C BC ####[facility] Dgfsvtphqk7112 [place] [phone]. Garima Pulliam MONO # 0.6 103/ul Normal 0.3-0.8 [facility] Comment on above: Performed By: #### C BC ####[facility] Smibippswo6233 [place] [address]Dr. Garima Heraclio Monocytes/100 WBC (Bld) 7.4 % Normal 1.7-12.0 [facility] Comment on above: Performed By: #### C BC ####[facility] Exkrbfyaai813[address] [place], [place] [address]Dr. Garima Pulliam NEUT # 5.6 103/ul Normal 1.4-6.5 [facility] Comment on above: Performed By: #### C BC ####[facility] Hqxvuydesi097[address] [place], [place] [address]Dr. Garima Heraclio Neutrophils/100 WBC (Bld) 65.2 % Normal 43.0-75.0 [facility] Comment on above: Performed By: #### C BC ####[facility] Nwqqoglorc4546 [place] [phone]. Garima Heraclio Platelet mean volume (Bld) [Entitic vol] 8.7 fL Critically low 9.5-13.5 [facility] Comment on above: Performed By: #### C BC ####[facility] X[address] [place], [place] [id number]. Garima Heraclio PLT 195 103/ul Normal 150-450 [facility] Comment on above: Performed By: #### C BC ####[facility] Cnrfyhcdyc3466 [place] [phone]. Garima Pulliam RBC 4.64 106/ul Critically low 4.70-6.10 [facility] Comment on above: Performed By: #### C BC ####[facility] Vywatjnufj7010 [place] [address]Dr. Garima Pulliam WBC 8.6 103/ul Normal 4.0-11.0 [facility] Comment on above: Performed By: #### C BC ####[facility] Lcxuicjqkw8342 [place] [address]Dr. Garima Pulliam PROF CHEM 8 (BAS METB)on Anion gap [Moles/Vol] 6.7 mmol/L Normal [facility] Comment on above: Performed By: #### B OCCUPATIONAL HEALTH SPECIALIST, BMP, HSTROPN ####[facility] Lqoyqikizi4692 [place] [address]Dr. Garima Pulliam Calcium [Mass/Vol] 8.8 mg/dL Normal 8.5-10.1 [facility] Comment on above: Performed By: #### B OCCUPATIONAL HEALTH SPECIALIST, BMP, HSTROPN ####[facility] Hktjkzlccj[address] [place], [place] [address]Dr. Garima Pulliam Chloride [Moles/Vol] 106 mmol/L Normal 98-107 [facility] Comment on above: Performed By: #### B OCCUPATIONAL HEALTH SPECIALIST, BMP, HSTROPN ####[facility] Rgmysusrdu25[address] [place], [place] [address]Dr. Garima Pulliam CO2 [Moles/Vol] 31.4 mmol/L Normal 21.0-32.0 [facility] Comment on above: Performed By: #### B OCCUPATIONAL HEALTH SPECIALIST, BMP, HSTROPN ####[facility] Xzaqkutijv[address] [place], [place] [address]Dr. Garima Pulliam Creatinine [Mass/Vol] 0.75 mg/dL Normal 0.70-1.30 [facility] Comment on above: Performed By: #### B OCCUPATIONAL HEALTH SPECIALIST, BMP, HSTROPN ####[facility] Cwpncimhwu0860 [place] [address]Dr. Garima Pulliam EGFR-AF NAURUAN >60 Normal >=60 [facility] Comment on above: Performed By: #### B OCCUPATIONAL HEALTH SPECIALIST, BMP, HSTROPN ####[facility] Faibpddnlo7309 [place] [address]Dr. Garima Pulliam EGFR-NON AF NAURUAN >60 Normal >=60 [facility] Comment on above: Performed By: #### B OCCUPATIONAL HEALTH SPECIALIST, BMP, HSTROPN ####[facility] Tnouwebmlq7785 [place] [address]Dr. Garima Pulliam Glucose [Mass/Vol] 161 mg/dL Critically high 74-106 T [facility] Comment on above: Performed By: #### B OCCUPATIONAL HEALTH SPECIALIST, BMP, HSTROPN ####[facility] Rmjhsfgqvu1312 [place] [address]Dr. Garima Pulliam Potassium [Moles/Vol] 4.1 mmol/L Normal 3.5-5.1 [facility] Comment on above: Performed By: #### B OCCUPATIONAL HEALTH SPECIALIST, BMP, HSTROPN ####[facility] Nprqchmoij6274 [place] [address]Dr. Garima Pulliam Sodium [Moles/Vol] 140 mmol/L Normal 136-145 [facility] Comment on above: Performed By: #### B OCCUPATIONAL HEALTH SPECIALIST, BMP, HSTROPN ####[facility] Vzccfpuvtm5941 [place] [address]Dr. Garima Pulliam Urea nitrogen [Mass/Vol] 7.0 mg/dL Normal 7.0-18.0 [facility] Comment on above: Performed By: #### B OCCUPATIONAL HEALTH SPECIALIST, BMP, HSTROPN ####[facility] Wolatcxnhp0724 [place] [address]Dr. Garima Pulliam Urea nitrogen/Creatinine [Mass ratio] 9.3 mg/mg Normal [facility] Comment on above: Performed By: #### B OCCUPATIONAL HEALTH SPECIALIST, BMP, HSTROPN ####[facility] Avncuwzgnh3067 [place] [address]Dr. Garima Pulliam TROPONIN, HIGH SENSITIVITYon 03-16-2023 HSTROP 9.7 pg/mL Normal 4.0-76.1 [facility] Comment on above: Result Comment: CUT- OFF POINTS HAVE BEEN ESTABLISHED BASED ON THE FOURTH UNIVERSAL DEFINITIONS OF MYOCARDIALINFARCTION. THE UPPER REFERENCE LIMIT (URL) OF TROPONIN, DEFINED THE 99TH PERCENTILE OFcTnI DISTRIBUTION IN A REFERENCE POPULATION, HAS BEEN CONFIRMED THE DECISION THRESHOLDFOR ME DIAGNOSIS. Performed By: #### B OCCUPATIONAL HEALTH SPECIALIST, BMP, HSTROPN ####[facility] Egnmwfinju8965 [place] [address]Dr. Garima Pulliam XR CHEST 1 Von 03-16-2023 XR CHEST 1 V Normal [facility] BNPon 03-06-2023 Natriuretic peptide B (Bld) [Mass/Vol] 111.0 pg/mL Normal <=900.0 [facility] Comment on above: Performed By: #### C MP, BNP, CK ####[facility] Qkuimqixrq6712 [place] [address]Dr. Chapisrenu Pulliam CBC AUTO DIFFon 03-06-2023 BASO # 0.0 103/ul Normal 0.0-0.1 [facility] Comment on above: Performed By: #### C BC ####[facility] Yfzmekzutc[address] [place], [place] [address]Dr. Garima Pulliam Basophils/100 WBC (Bld) 0.2 % Normal 0.2-2.0 [facility] Comment on above: Performed By: #### C BC ####[facility] Flgpmdxpda[address] [place], [place] [address]Dr. Garima Pulliam EO # 0.3 103/ul Normal 0.0-0.7 [facility] Comment on above: Performed By: #### C BC ####[facility] Anowgqwlqr8[address] [place], [place] [address]Dr. Garima Pulliam Eosinophils/100 WBC (Bld) 3.5 % Normal 0.9-7.0 [facility] Comment on above: Performed By: #### C BC ####[facility] Youyentfsk[address] [place], [place] [address]Dr. Garima Pulliam Erythrocyte distribution width (RBC) [Ratio] 13.3 % Normal 11.0-15.0 [facility] Comment on above: Performed By: #### C BC ####[facility] Eehmcuyhme[address] [place], [place] [address]Dr. Garima Pulliam Hematocrit (Bld) [Volume fraction] 43.7 % Normal 42.0-54.0 [facility] Comment on above: Performed By: #### C BC ####[facility] Sotxqxjimq3576 [place] [address]Dr. Garima Pulliam Hemoglobin (Bld) [Mass/Vol] 14.7 g/dL Normal 14.0-18.0 [facility] Comment on above: Performed By: #### C BC ####[facility] Ewqtekmcre3524 [place] [address]Dr. Chapisrenu Heraclio IG # 0.03 10e3/ul Normal 0.00-0.03 [facility] Comment on above: Performed By: #### C BC ####[facility] Taqrlqgldt24[address] [place], [place] [address]Dr. Garima Pulliam IG % 0.4 % Normal 0.0-0.5 [facility] Comment on above: Performed By: #### C BC ####[facility] Budigklfot[address] [place], [place] [address]Dr. Garima Pulliam LYMPH # 2.0 103/ul Normal 1.2-3.8 [facility] Comment on above: Performed By: #### C BC ####[facility] Lrprzcmxns038[address] [place], [place] [address]DrAdalberto Pulliam Lymphocytes/100 WBC (Bld) 23.7 % Normal 20.5-60.0 [facility] Comment on above: Performed By: #### C BC ####[facility] Jvysjgogif7007 [place] [address]Dr. Garima Pulliam MANUAL DIFF REQ NO Normal [facility] Comment on above: Performed By: #### C BC ####[facility] Lftuqvlfph2062 [place] [phone] Pulliam MCH (RBC) [Entitic mass] 30.1 pg Normal 25.9-34.0 [facility] Comment on above: Performed By: #### C BC ####[facility] Vimghfcnml7139 [place] [phone]. Garima Pulliam MCHC (RBC) [Mass/Vol] 33.6 g/dL Normal 29.9-35.2 [facility] Comment on above: Performed By: #### C BC ####[facility] Mukilrimvn8180 [place] [address]Dr. Garima Heraclio MCV (RBC) [Entitic vol] 89.4 fL Normal 80.0-94.0 [facility] Comment on above: Performed By: #### C BC ####[facility] Jibliaftgo0134 [place] [address]Dr. Garima Pulliam MONO # 0.8 103/ul Normal 0.3-0.8 [facility] Comment on above: Performed By: #### C BC ####[facility] Hbggwkzmhh4606 [place] [address]Dr. Garima Pulliam Monocytes/100 WBC (Bld) 9.0 % Normal 1.7-12.0 [facility] Comment on above: Performed By: #### C BC ####[facility] Ntaljmpwwb[address] [place], [place] [address]Dr. Garima Pulliam NEUT # 5.4 103/ul Normal 1.4-6.5 [facility] Comment on above: Performed By: #### C BC ####[facility] Jqlkoibnqa[address] [place], [place] [address]Dr. Garima Pulliam Neutrophils/100 WBC (Bld) 63.2 % Normal 43.0-75.0 [facility] Comment on above: Performed By: #### C BC ####[facility] Bmgicdjdnx[address] [place], [place] [address]Dr. Garima Pulliam Platelet mean volume (Bld) [Entitic vol] 9.0 fL Critically low 9.5-13.5 [facility] Comment on above: Performed By: #### C BC ####[facility] Hejanabscd[address] [place], [place] [address]Dr. Garima Pulliam PLT 218 103/ul Normal 150-450 [facility] Comment on above: Performed By: #### C BC ####[facility] Vlpfcoxyml2118 [place] [phone]. Garima Pulliam RBC 4.89 106/ul Normal 4.70-6.10 [facility] Comment on above: Performed By: #### C BC ####[facility] Nhpsegkfer2983 [place] [address]Dr. Garima Pulliam WBC 8.5 103/ul Normal 4.0-11.0 [facility] Comment on above: Performed By: #### C BC ####[facility] Tjiftnwkon4151 [place] [address]Dr. Garima Pulliam CPKon 03-06-2023 CK [Catalytic activity/Vol] 191 U/L Normal 39-308 [facility] Comment on above: Performed By: #### C MP, BNP, CK ####[facility] Txsowgbimo8148 [place] [address]Dr. Garima Pulliam PROF 14(COMP METB)on 023 Albumin [Mass/Vol] 3.6 g/dL Normal 3.4-5.0 [facility] Comment on above: Performed By: #### C MP, BNP, CK ####[facility] Foatpefllo2447 [place] [address]Dr. Garima Pulliam Albumin/Globulin [Mass ratio] 1.2 {ratio} Normal [facility] Comment on above: Performed By: #### C MP, BNP, CK ####[facility] Vpdbidnwjw5237 [place] [address]Dr. Garima Pulliam ALP [Catalytic activity/Vol] 91 U/L Normal 46-116 [facility] Comment on above: Performed By: #### C MP, BNP, CK ####[facility] Sfxzxfzwpj0947 [place] [address]Dr. Garima Pulliam ALT [Catalytic activity/Vol] 33 U/L Normal 16-63 [facility] Comment on above: Performed By: #### C MP, BNP, CK ####[facility] Viqgzgrllx76[address] [place] [address]Dr. Garima Pulliam Anion gap [Moles/Vol] 10.3 mmol/L Normal [facility] Comment on above: Performed By: #### C MP, BNP, CK ####[facility] Oihvncznah6037 [place] [address]Dr. Garima Pulliam AST [Catalytic activity/Vol] 17 U/L Normal 15-37 [facility] Comment on above: Performed By: #### C MP, BNP, CK ####[facility] Bdpyvjtgmq8023 [place] [address]Dr. Garima Pulliam Bilirubin [Mass/Vol] 0.4 mg/dL Normal 0.2-1.0 [facility] Comment on above: Performed By: #### C MP, BNP, CK ####[facility] Gclivkoyps20[address] [place] [address]Dr. Garima Pulliam Calcium [Mass/Vol] 9.1 mg/dL Normal 8.5-10.1 [facility] Comment on above: Performed By: #### C MP, BNP, CK ####[facility] Euxqhjoecp5031 [place] [address]Dr. Garima Pulliam Chloride [Moles/Vol] 102 mmol/L Normal 98-107 [facility] Comment on above: Performed By: #### C MP, BNP, CK ####[facility] Esbupcsghm2374 [place] [address]Dr. Garima Pulliam CO2 [Moles/Vol] 29.7 mmol/L Normal 21.0-32.0 [facility] Comment on above: Performed By: #### C MP, BNP, CK ####[facility] Bnuinhpfav1732 [place] [address]Dr. Garima Pulliam Creatinine [Mass/Vol] 0.79 mg/dL Normal 0.70-1.30 [facility] Comment on above: Performed By: #### C MP, BNP, CK ####[facility] Fbgzijijbr2845 [place] [address]Dr. Garima Pulliam EGFR-AF NAURUAN >60 Normal >=60 [facility] Comment on above: Performed By: #### C MP, BNP, CK ####[facility] Eskbdteotq2215 [place] [address]Dr. Garima Pulliam EGFR-NON AF NAURUAN >60 Normal >=60 [facility] Comment on above: Performed By: #### C MP, BNP, CK ####[facility] Pudbbpfcbb6323 [place] [address]Dr. Garima Pulliam Globulin (S) [Mass/Vol] 3.0 g/dL Normal [facility] Comment on above: Performed By: #### C MP, BNP, CK ####[facility] Xbytdriwue6656 [place] [address]Dr. Garima Pulliam Glucose [Mass/Vol] 202 mg/dL Critically high 74-106 [place] Comment on above: Performed By: #### C MP, BNP, CK ####[facility] Tsfqluusvc3560 [place] [address]Dr. Garima Pulliam Potassium [Moles/Vol] 4.0 mmol/L Normal 3.5-5.1 [facility] Comment on above: Performed By: #### C MP, BNP, CK ####[facility] Dnazencwov8734 [place] [address]Dr. Garima Pulliam Protein [Mass/Vol] 6.6 g/dL Normal 6.4-8.2 [facility] Comment on above: Performed By: #### C MP, BNP, CK ####[facility] Zckckkrjga[address] [place], [place] [address]Dr. Garima Pulliam Sodium [Moles/Vol] 138 mmol/L Normal 136-145 [facility] Comment on above: Performed By: #### C MP, BNP, CK ####[facility] Qgwhqwqrcb[address] [place], [place] [address]Dr. Garima Pulliam Urea nitrogen [Mass/Vol] 10.0 mg/dL Normal 7.0-18.0 [facility] Comment on above: Performed By: #### C MP, BNP, CK ####[facility] Hswvggopvh3045 [place] [address]Dr. Garima Pulliam Urea nitrogen/Creatinine [Mass ratio] 12.7 mg/mg Normal [facility] Comment on above: Performed By: #### C MP, BNP, CK ####[facility] Mlrqjfjxsc4226 [place] [address]Dr. Garima Pulliam US VERONICA DOP LEG BILon 023 US VERONICA DOP LEG BENOIT Normal [facility] CBC AUTO DIFFon 01-13-2023 BASO # 0.0 103/ul Normal 0.0-0.1 [facility] Comment on above: Performed By: #### C BC ####[facility] Lkdgbpfbdf2719 [place] [phone]. Chapisrenu Pulliam Basophils/100 WBC (Bld) 0.0 % Critically low 0.2-2.0 [facility] Comment on above: Performed By: #### C BC ####[facility] Rgjuorsbgv7782 [place] [address]Dr. Garima Pulliam EO # 0.0 103/ul Normal 0.0-0.7 [facility] Comment on above: Performed By: #### C BC ####[facility] Ichmxzcktl306[address] [place], [place] [address]Dr. Garima Pulliam Eosinophils/100 WBC (Bld) 0.0 % Critically low 0.9-7.0 [facility] Comment on above: Performed By: #### C BC ####[facility] Asnzeaaohy4550 [place] [address]Dr. Garima Pulliam Erythrocyte distribution width (RBC) [Ratio] 13.2 % Normal 11.0-15.0 [facility] Comment on above: Performed By: #### C BC ####[facility] Gqyzevuygw264[address] [place], [place] [address]Dr. Garima Pulliam Hematocrit (Bld) [Volume fraction] 46.7 % Normal 42.0-54.0 [facility] Comment on above: Performed By: #### C BC ####[facility] Y[address]qzjkgfqz[address] [place], [place] [address]Dr. Garima Pulliam Hemoglobin (Bld) [Mass/Vol] 15.6 g/dL Normal 14.0-18.0 [facility] Comment on above: Performed By: #### C BC ####[facility] Ckpsnluhag[address] [place], [place] [address]Dr. Garima Pulliam IG # 0.01 10e3/ul Normal 0.00-0.03 [facility] Comment on above: Performed By: #### C BC ####[facility] Hmkxhsodcy8989 [place] [phone]. Garima Pulliam IG % 0.2 % Normal 0.0-0.5 [facility] Comment on above: Performed By: #### C BC ####[facility] Skqvgmpawr3216 [place] [phone]. Garima Pulliam LYMPH # 0.8 103/ul Critically low 1.2-3.8 [facility] Comment on above: Performed By: #### C BC ####[facility] Vmhraqujgu8439 [place] [phone]. Garima Pulliam Lymphocytes/100 WBC (Bld) 12.7 % Critically low 20.5-60.0 [facility] Comment on above: Performed By: #### C BC ####[facility] Mbyixqcqmz9796 [place] [address]Dr. Garima Pulliam MANUAL DIFF REQ NO Normal [facility] Comment on above: Performed By: #### C BC ####[facility] Vnltebcjmb2849 [place] [phone]. Garima Pulliam MCH (RBC) [Entitic mass] 30.2 pg Normal 25.9-34.0 [facility] Comment on above: Performed By: #### C BC ####[facility] Nhyrayuqox6067 [place] [phone]. Garima Pulliam MCHC (RBC) [Mass/Vol] 33.4 g/dL Normal 29.9-35.2 [facility] Comment on above: Performed By: #### C BC ####[facility] Izkiqwcgzo9032 [place] [phone]. Garima Pulliam MCV (RBC) [Entitic vol] 90.3 fL Normal 80.0-94.0 [facility] Comment on above: Performed By: #### C BC ####[facility] Fgiaasorwq7531 [place] [phone]. Garima Heraclio MONO # 0.1 103/ul Critically low 0.3-0.8 The [facility] Comment on above: Performed By: #### C BC ####[facility] Bitmpfdivo2696 [place] [phone]. Garima Pulliam Monocytes/100 WBC (Bld) 0.9 % Critically low 1.7-12.0 [facility] Comment on above: Performed By: #### C BC ####[facility] Aqejkpbvgg9321 [place] [phone]. Garima Pulliam NEUT # 5.6 103/ul Normal 1.4-6.5 [facility] Comment on above: Performed By: #### C BC ####[facility] Lblbsjzsxk1816 [place] [phone]. Garima Pulliam Neutrophils/100 WBC (Bld) 86.2 % Critically high 43.0-75.0 [facility] Comment on above: Performed By: #### C BC ####[facility] Mastqlsagm3416 [place] [address]Dr. Garima Pulliam Platelet mean volume (Bld) [Entitic vol] 9.1 fL Critically low 9.5-13.5 [facility] Comment on above: Performed By: #### C BC ####[facility] Nigzdkzuoa[address] [place], [place] [address]Dr. Garima Pulliam PLT 169 103/ul Normal 150-450 [facility] Comment on above: Performed By: #### C BC ####[facility] Bdkdxlvctm90[address] [place], [place] [address]Dr. Garima Pulliam RBC 5.17 106/ul Normal 4.70-6.10 [facility] Comment on above: Performed By: #### C BC ####[facility] Wldufgcezu[address] [place], [place] [phone]. Garima Pulliam WBC 6.5 103/ul Normal 4.0-11.0 [facility] Comment on above: Performed By: #### C BC ####[facility] Snizmfsvba357[address] [place], [place] [address]Dr. Garima Pulliam D-DIMERon 01-13-2023 D-DIMER 0.41 mg/L FEU Normal <=0.59 [facility] Comment on above: Performed By: #### D DIM ####[facility] Ivxouslabi4688 [place] [address]Dr. Garima Pulliam D-DIMER COMMENTS SEE BELOW Normal [...] generalized hospitalization. Performed By: #### D DIM ####[facility] Znknlqaoqf894[address] [place], [place] [address]Dr. Garima Pulliam PROF 14(COMP METB)on 023 Albumin [Mass/Vol] 3.4 g/dL Normal 3.4-5.0 [facility] Comment on above: Performed By: #### C MP ####[facility] Gjkkbgnhkw[address] [place], [place] [address]Dr. Garima Pulliam Albumin/Globulin [Mass ratio] 1.3 {ratio} Normal [facility] Comment on above: Performed By: #### C MP ####[facility] Eisupxbeyo9[address] [place], [place] [address]Dr. Garima Pulliam ALP [Catalytic activity/Vol] 83 U/L Normal 46-116 [facility] Comment on above: Performed By: #### C MP ####[facility] Zqsbofoxwq475[address] [place], [place] [address]Dr. Garima Pulliam ALT [Catalytic activity/Vol] 25 U/L Normal 16-63 [facility] Comment on above: Performed By: #### C MP ####[facility] Tcwxvdpttr5549 [place] [address]Dr. Garima Pulliam Anion gap [Moles/Vol] 14.5 mmol/L Normal [facility] Comment on above: Performed By: #### C MP ####[facility] Rvzrekkcsw79[address] [place], [place] [address]Dr. Garima Pulliam AST [Catalytic activity/Vol] 19 U/L Normal 15-37 [facility] Comment on above: Performed By: #### C MP ####[facility] Grlsuvvzec388[address] [place], [place] [address]Dr. Garima Pulliam Bilirubin [Mass/Vol] 0.4 mg/dL Normal 0.2-1.0 [facility] Comment on above: Performed By: #### C MP ####[facility] Xboampavzb[address] [place], [place] [address]Dr. Garima Pulliam Calcium [Mass/Vol] 8.7 mg/dL Normal 8.5-10.1 [facility] Comment on above: Performed By: #### C MP ####[facility] Hscvvugzzo832[address] [place], [place] [address]Dr. Garima Pulliam Chloride [Moles/Vol] 104 mmol/L Normal 98-107 [facility] Comment on above: Performed By: #### C MP ####[facility] Zfayekvcyj299[address] [place], [place] [address]Dr. Garima Pulliam CO2 [Moles/Vol] 24.5 mmol/L Normal 21.0-32.0 [facility] Comment on above: Performed By: #### C MP ####[facility] Hknpaljfek94[address] [place], [place] [address]Dr. Garima Pulliam Creatinine [Mass/Vol] 0.70 mg/dL Normal 0.70-1.30 [facility] Comment on above: Performed By: #### C MP ####[facility] Rvdwusatsh42[address] [place], [place] [address]Dr. Garima Heraclio EGFR-AF NAURUAN >60 Normal >=60 [facility] Comment on above: Performed By: #### C MP ####[facility] Xcbhglrtju167[address] [place], [place] [address]Dr. Chapisrenu Heraclio EGFR-NON AF NAURUAN >60 Normal >=60 [facility] Comment on above: Performed By: #### C MP ####[facility] Itzrgnudbq725[address] [place], [place] [address]Dr. Chapisrenu Pulliam Globulin (S) [Mass/Vol] 2.6 g/dL Normal [facility] Comment on above: Performed By: #### C MP ####[facility] Xyylwswpwh7449 [place] [address]Dr. Garima Pulliam Glucose [Mass/Vol] 196 mg/dL Critically high 74-106 [place] Comment on above: Performed By: #### C MP ####[facility] Avpjpajfpp2281 [place] [address]Dr. Garima Pulliam Potassium [Moles/Vol] 4.0 mmol/L Normal 3.5-5.1 [facility] Comment on above: Performed By: #### C MP ####[facility] Mirwvkpfll9433 [place] [address]Dr. Garima Pulliam Protein [Mass/Vol] 6.0 g/dL Critically low 6.4-8.2 [facility] Comment on above: Performed By: #### C MP ####[facility] Uaircnbckv[address] [place], [place] [address]Dr. Garima Pulliam Sodium [Moles/Vol] 139 mmol/L Normal 136-145 [facility] Comment on above: Performed By: #### C MP ####[facility] Xjonsqmiol[address] [place], [place] [address]Dr. Garima Pulliam Urea nitrogen [Mass/Vol] 7.0 mg/dL Normal 7.0-18.0 [facility] Comment on above: Performed By: #### C MP ####[facility] Hznhpmgieg460[address] [place], [place] [address]Dr. Garima Heraclio Urea nitrogen/Creatinine [Mass ratio] 10.0 mg/mg Normal [facility] Comment on above: Performed By: #### C MP ####[facility] Ivpfcssbkt008[address] [place], [place] [address]Dr. Garima Heraclio BNPon 01-12-2023 Natriuretic peptide B (Bld) [Mass/Vol] 141.0 pg/mL Normal <=900.0 [facility] Comment on above: Performed By: #### C MP, BNP, HSTROPN ####[facility] Bcvbgqwdvv[address] [place], [place] [address]Dr. Garima Heraclio CBC AUTO DIFFon 01-12-2023 BASO # 0.0 103/ul Normal 0.0-0.1 [facility] Comment on above: Performed By: #### C BC ####[facility] Euwopeoxpp5186 [place] [phone]. Garima Heraclio Basophils/100 WBC (Bld) 0.2 % Normal 0.2-2.0 [facility] Comment on above: Performed By: #### C BC ####[facility] Kiouwosils2683 [place] [address]Dr. Garima Heraclio EO # 0.2 103/ul Normal 0.0-0.7 [facility] Comment on above: Performed By: #### C BC ####[facility] Nyynqodzrk6984 [place] [address]Dr. Garima Heraclio Eosinophils/100 WBC (Bld) 2.7 % Normal 0.9-7.0 [facility] Comment on above: Performed By: #### C BC ####[facility] [address]ukgahvaz[address] [place], [place] [address]Dr. Garima Pulliam Erythrocyte distribution width (RBC) [Ratio] 13.3 % Normal 11.0-15.0 [facility] Comment on above: Performed By: #### C BC ####[facility] Yczioeotcg04[address] [place], [place] [address]Dr. Garima Pulliam Hematocrit (Bld) [Volume fraction] 42.3 % Normal 42.0-54.0 [facility] Comment on above: Performed By: #### C BC ####[facility] Pmyuesaokl[address] [place], [place] [address]Dr. Garima Pulliam Hemoglobin (Bld) [Mass/Vol] 14.3 g/dL Normal 14.0-18.0 [facility] Comment on above: Performed By: #### C BC ####[facility] Koxxcwgbob[address] [place], [place] [address]Dr. Garima Pulliam IG # 0.02 10e3/ul Normal 0.00-0.03 [facility] Comment on above: Performed By: #### C BC ####[facility] Uzkjboqqlx3855 [place] [phone]. Garima Pulliam IG % 0.2 % Normal 0.0-0.5 [facility] Comment on above: Performed By: #### C BC ####[facility] Qyarcefmfi2029 [place] [phone]. Garima Pulliam LYMPH # 2.6 103/ul Normal 1.2-3.8 [facility] Comment on above: Performed By: #### C BC ####[facility] Xhpbgxquff6486 [place] [phone]. Garima Heraclio Lymphocytes/100 WBC (Bld) 29.6 % Normal 20.5-60.0 [facility] Comment on above: Performed By: #### C BC ####[facility] Axjkwdzgzy7071 [place] [address]Dr. Garima Heraclio MANUAL DIFF REQ NO Normal [facility] Comment on above: Performed By: #### C BC ####[facility] Uprwykznca5252 [place] [phone]. Garima Pulliam MCH (RBC) [Entitic mass] 30.2 pg Normal 25.9-34.0 [facility] Comment on above: Performed By: #### C BC ####[facility] Whzpvficju8032 [place] [address]Dr. Garima Pulliam MCHC (RBC) [Mass/Vol] 33.8 g/dL Normal 29.9-35.2 [facility] Comment on above: Performed By: #### C BC ####[facility] Xtoyoiqmsw2352 [place] [phone]. Garima Pulliam MCV (RBC) [Entitic vol] 89.2 fL Normal 80.0-94.0 [facility] Comment on above: Performed By: #### C BC ####[facility] Hbwptlndjd[address] [place], [place] [address]Dr. Chapisrenu Pulliam MONO # 0.7 103/ul Normal 0.3-0.8 [facility] Comment on above: Performed By: #### C BC ####[facility] Xapcagueub1391 [place] [phone]. Garima Pulliam Monocytes/100 WBC (Bld) 8.3 % Normal 1.7-12.0 [facility] Comment on above: Performed By: #### C BC ####[facility] Vmkmntfkaw1239 [place] [phone]. Garima Pulliam NEUT # 5.1 103/ul Normal 1.4-6.5 [facility] Comment on above: Performed By: #### C BC ####[facility] Wjhtjrvqkx3500 [place] [phone]. Garima Pulliam Neutrophils/100 WBC (Bld) 59.0 % Normal 43.0-75.0 [facility] Comment on above: Performed By: #### C BC ####[facility] Odncnipxqf1174 [place] [address]Dr. Garima Pulliam Platelet mean volume (Bld) [Entitic vol] 8.7 fL Critically low 9.5-13.5 [facility] Comment on above: Performed By: #### C BC ####[facility] Xpmkfnrxpn6284 [place] [address]Dr. Garima Pulliam PLT 182 103/ul Normal 150-450 [facility] Comment on above: Performed By: #### C BC ####[facility] Ucgvmxqttt3671 [place] [phone]. Garima Pulliam RBC 4.74 106/ul Normal 4.70-6.10 [facility] Comment on above: Performed By: #### C BC ####[facility] [address] [place], [place] [phone]. Garima Pulliam WBC 8.7 103/ul Normal 4.0-11.0 [facility] Comment on above: Performed By: #### C BC ####[facility] [address]rkokxo[address] [place], [place] [address]Dr. Garima Pulliam Covid-19 PCR (CVDTB)on 12-25 SARS-CoV-2 (COVID-19) RNA MARIE+probe Ql (Unsp spec) Not detected Normal NOT DETECTED [facility] Comment on above: Result [...] for this test is supported by the Rn [employer]ph[employer] of Health and Human Service's declaration that [...] be used). Performed By: #### C VDTBH ####[facility] Oyfqdooqri9149 [place] [address]Dr. Garima Pulliam PROF 14(COMP METB)on 023 Albumin [Mass/Vol] 3.6 g/dL Normal 3.4-5.0 [facility] Comment on above: Performed By: #### C MP, BNP, HSTROPN ####[facility] Lvifhxycah1248 [place] [address]Dr. Garima Pulliam Albumin/Globulin [Mass ratio] 1.5 {ratio} Normal [facility] Comment on above: Performed By: #### C MP, BNP, HSTROPN ####[facility] Aomwjcxzmq5098 [place] [address]Dr. Garima Pulliam ALP [Catalytic activity/Vol] 79 U/L Normal 46-116 [facility] Comment on above: Performed By: #### C MP, BNP, HSTROPN ####[facility] Moxtsiwcsw7327 [place] [address]Dr. Garima Pulliam ALT [Catalytic activity/Vol] 27 U/L Normal 16-63 [facility] Comment on above: Performed By: #### C MP, BNP, HSTROPN ####[facility] Ybbihtlbnv0132 [place] [address]Dr. Garima Pulliam Anion gap [Moles/Vol] 11.7 mmol/L Normal [facility] Comment on above: Performed By: #### C MP, BNP, HSTROPN ####[facility] Sukoqqcwae7864 [place] [address]Dr. Garima Pulliam AST [Catalytic activity/Vol] 21 U/L Normal 15-37 [facility] Comment on above: Performed By: #### C MP, BNP, HSTROPN ####[facility] Nupdyzkfny6424 [place] [address]Dr. Garima Pulliam Bilirubin [Mass/Vol] 0.3 mg/dL Normal 0.2-1.0 [facility] Comment on above: Performed By: #### C MP, BNP, HSTROPN ####[facility] Nwgzjwxvsv8493 [place] [address]Dr. Garima Pulliam Calcium [Mass/Vol] 8.9 mg/dL Normal 8.5-10.1 [facility] Comment on above: Performed By: #### C MP, BNP, HSTROPN ####[facility] Jkxmonraku4566 [place] [address]Dr. Garima Pulliam Chloride [Moles/Vol] 107 mmol/L Normal 98-107 [facility] Comment on above: Performed By: #### C MP, BNP, HSTROPN ####[facility] Kblosvnmrz7914 [place] [address]Dr. Garima Pulliam CO2 [Moles/Vol] 26.0 mmol/L Normal 21.0-32.0 [facility] Comment on above: Performed By: #### C MP, BNP, HSTROPN ####[facility] Klbzbcppel3708 [place] [address]Dr. Garima Pulliam Creatinine [Mass/Vol] 0.65 mg/dL Critically low 0.70-1.30 [facility] Comment on above: Performed By: #### C MP, BNP, HSTROPN ####[facility] Wpjtlmqmjv35[address] [place] [address]Dr. Yilan Pulliam EGFR-AF NAURUAN >60 Normal >=60 [facility] Comment on above: Performed By: #### C MP, BNP, HSTROPN ####[facility] Atzuyleqgv[address] [place] [address]Dr. Garima Pulliam EGFR-NON AF NAURUAN >60 Normal >=60 [facility] Comment on above: Performed By: #### C MP, BNP, HSTROPN ####[facility] Qmipxolhwi84[address] [place] [address]Dr. Garima Pulliam Globulin (S) [Mass/Vol] 2.4 g/dL Normal [facility] Comment on above: Performed By: #### C MP, BNP, HSTROPN ####[facility] Ykotdbprxo[address] [place], [place] [address]Dr. Garima Pulliam Glucose [Mass/Vol] 85 mg/dL Normal 74-106 [facility] Comment on above: Performed By: #### C MP, BNP, HSTROPN ####[facility] Zvztbgfuwb5353 [place] [address]Dr. Garima Pulliam Potassium [Moles/Vol] 3.7 mmol/L Normal 3.5-5.1 [facility] Comment on above: Performed By: #### C MP, BNP, HSTROPN ####[facility] Ttbvflzacv[address] [place] [address]Dr. Garima Pulliam Protein [Mass/Vol] 6.0 g/dL Critically low 6.4-8.2 [facility] Comment on above: Performed By: #### C MP, BNP, HSTROPN ####[facility] Oeskbtehbi22[address] [place] [address]Dr. Garima Pulliam Sodium [Moles/Vol] 141 mmol/L Normal 136-145 [facility] Comment on above: Performed By: #### C MP, BNP, HSTROPN ####[facility] Uogovgmuvf[address] [place] [address]Dr. Garima Pulliam Urea nitrogen [Mass/Vol] 5.0 mg/dL Critically low 7.0-18.0 [facility] Comment on above: Performed By: #### C MP, BNP, HSTROPN ####[facility] Szsjuwwfhx0832 [place] [address]Dr. Garima Pulliam Urea nitrogen/Creatinine [Mass ratio] 7.7 mg/mg Normal [facility] Comment on above: Performed By: #### C MP, BNP, HSTROPN ####[facility] Aabfxfittq37[address] [place] [address]Dr. Garima Pulliam PROTIMEon 01-12-2023 INR Coag (PPP) [Relative time] 1.16 {INR} Normal [facility] Comment on above: Performed By: #### P TT, PT ####[facility] Soaaxkqvom[address] [place] [address]Dr. Garima Pulliam INR GUIDELINES SEE BELOW Normal [facility] Comment on above: Result Comment: WESLEY RED INR: 2.0 - 3.0 CONDITIONS NOT LISTED BELOW 2.5 - 3.5 FOR PROSTHETIC HEART VALVE REPLACEMENT 2.5 - 3.5 RECURRENT THROMBOSIS Performed By: #### P TT, PT ####[facility] Bbhdvcudpt[address] [place], [place] [address]Dr. Garima Pulliam PT Coag (PPP) [Time] 12.2 s Critically high 9.0-11.6 [facility] Comment on above: Performed By: #### P TT, PT ####[facility] Tywhqdxkmr5732 [place] [address]Dr. Garima Pulliam PTTon 01-12-2023 aPTT Coag (Bld) [Time] 29.1 s Normal 22.3-36.2 [facility] Comment on above: Performed By: #### P TT, PT ####[facility] Iwrtjioxop[address] [place], [place] [address]Dr. Garima Pulliam TROPONIN, HIGH SENSITIVITYon 01-12-2023 HSTROP 10.3 pg/mL Normal 4.0-76.1 [facility] Comment on above: Result Comment: CUT- OFF POINTS HAVE BEEN ESTABLISHED BASED ON THE FOURTH UNIVERSAL DEFINITIONS OF MYOCARDIALINFARCTION. THE UPPER REFERENCE LIMIT (URL) OF TROPONIN, DEFINED THE 99TH PERCENTILE OFcTnI DISTRIBUTION IN A REFERENCE POPULATION, HAS BEEN CONFIRMED THE DECISION THRESHOLDFOR ME DIAGNOSIS. Performed By: #### H STROPN ####[facility] Wagxuhxwhj[address] [place] [address]Dr. Garima Pulliam HSTROP 9.2 pg/mL Normal 4.0-76.1 [facility] Comment on above: Result Comment: CUT- OFF POINTS HAVE BEEN ESTABLISHED BASED ON THE FOURTH UNIVERSAL DEFINITIONS OF MYOCARDIALINFARCTION. THE UPPER REFERENCE LIMIT (URL) OF TROPONIN, DEFINED THE 99TH PERCENTILE OFcTnI DISTRIBUTION IN A REFERENCE POPULATION, HAS BEEN CONFIRMED THE DECISION THRESHOLDFOR ME DIAGNOSIS. Performed By: #### C MP, BNP, HSTROPN ####[facility] Ziosamkdbm89[address] [place] [address]Dr. Garima Pulliam XR CHEST 1 Von 01-12-2023 XR CHEST 1 V Normal [facility] XR CHEST 1 Von 01-01-2023 XR CHEST 1 V Normal [facility] CARDIAC NASH 3-6on 3 CK [Catalytic activity/Vol] 196 U/L Normal 39-308 [facility] Comment on above: Performed By: #### C MREP ####[facility] Hlvaogrbvn70[address] [place] [address]Dr. Garima Pulliam CK.MB [Mass/Vol] 7.41 ng/mL Critically high <=3.60 [facility] Comment on above: Performed By: #### C MREP ####[facility] Jzsvzzbyfv5674 [place] [address]Dr. Garima Pulliam HSTROP 10.3 pg/mL Normal 4.0-76.1 [facility] Comment on above: Result Comment: CUT- OFF POINTS HAVE BEEN ESTABLISHED BASED ON THE FOURTH UNIVERSAL DEFINITIONS OF MYOCARDIALINFARCTION. THE UPPER REFERENCE LIMIT (URL) OF TROPONIN, DEFINED THE 99TH PERCENTILE OFcTnI DISTRIBUTION IN A REFERENCE POPULATION, HAS BEEN CONFIRMED THE DECISION THRESHOLDFOR ME DIAGNOSIS. Performed By: #### C MREP ####[facility] Rbuxtaaege[address] [place] [id number]. Garima Pulliam XR CHEST 1 Von 12-26-2022 XR CHEST 1 V Normal [facility] BNPon 12-25-2022 Natriuretic peptide B (Bld) [Mass/Vol] 98.0 pg/mL Normal <=900.0 [facility] Comment on above: Performed By: #### B MARVIN FRENCH CMADM ####[facility] Sywtwjdvuk6[address] [place] [address]Dr. Garima Pulliam CARDIAC NASH ADMITon 023 CK [Catalytic activity/Vol] 208 U/L Normal 39-308 [facility] Comment on above: Performed By: #### B MARVIN FRENCH CMADM ####[facility] Kudukudiuk1306 [place] [address]Dr. Garima Pulliam CK.MB [Mass/Vol] 7.63 ng/mL Critically high <=3.60 [facility] Comment on above: Performed By: #### B MARVIN FRENCH CMADM ####[facility] Urchomrbyo[address] [place], [place] [address]Dr. Garima Pulliam HSTROP 8.8 pg/mL Normal 4.0-76.1 [facility] Comment on above: Result Comment: CUT- OFF POINTS HAVE BEEN ESTABLISHED BASED ON THE FOURTH UNIVERSAL DEFINITIONS OF MYOCARDIALINFARCTION. THE UPPER REFERENCE LIMIT (URL) OF TROPONIN, DEFINED THE 99TH PERCENTILE OFcTnI DISTRIBUTION IN A REFERENCE POPULATION, HAS BEEN CONFIRMED THE DECISION THRESHOLDFOR ME DIAGNOSIS. Performed By: #### B MARVIN FRENCH CMADM ####[facility] Kjpxzbusgm[address] [place], [place] [address]Dr. Garima Pulliam DORIS 83 ng/mL Normal 16-96 [facility] Comment on above: Performed By: #### B MARVIN FRENCH CMADM ####[facility] Ttlwnontsl[address] [place], [place] [address]Dr. Garima Pulliam CBC AUTO DIFFon 12-25-2022 BASO # 0.0 103/ul Normal 0.0-0.1 [facility] Comment on above: Performed By: #### C BC ####[facility] Ountqogouq[address] [place], [place] [address]Dr. Garima Pulliam Basophils/100 WBC (Bld) 0.0 % Critically low 0.2-2.0 [facility] Comment on above: Performed By: #### C BC ####[facility] Tsjcxtvdhg5931 [place] [address]Dr. Garima Pulliam EO # 0.0 103/ul Normal 0.0-0.7 [facility] Comment on above: Performed By: #### C BC ####[facility] Vdbuduxcjk[address] [place], [place] [address]Dr. Garima Pulliam Eosinophils/100 WBC (Bld) 0.7 % Critically low 0.9-7.0 [facility] Comment on above: Performed By: #### C BC ####[facility] Vasssnkywq[address] [place], [place] [address]Dr. Garima Pulliam Erythrocyte distribution width (RBC) [Ratio] 13.4 % Normal 11.0-15.0 [facility] Comment on above: Performed By: #### C BC ####[facility] Psmkdavfvx[address] [place], [place] [address]Dr. Garima Pulliam Hematocrit (Bld) [Volume fraction] 42.9 % Normal 42.0-54.0 [facility] Comment on above: Performed By: #### C BC ####[facility] Ixdidkescp[address] [place], [place] [address]Dr. Garima Pulliam Hemoglobin (Bld) [Mass/Vol] 14.4 g/dL Normal 14.0-18.0 [facility] Comment on above: Performed By: #### C BC ####[facility] Nrfkmbvuxk8[address] [place], [place] [address]Dr. Garima Pulliam IG # 0.00 10e3/ul Normal 0.00-0.03 [facility] Comment on above: Performed By: #### C BC ####[facility] Puqxtfrdhr[address] [place], [place] [address]Dr. Garima Pulliam IG % 0.0 % Normal 0.0-0.5 [facility] Comment on above: Performed By: #### C BC ####[facility] Jlvmyxniba318[address] [place], [place] [address]Dr. Garima Pulliam LYMPH # 2.4 103/ul Normal 1.2-3.8 [facility] Comment on above: Performed By: #### C BC ####[facility] Aetbpiadcw8979 [place] [phone]. Chapisrenu Pulliam Lymphocytes/100 WBC (Bld) 29.2 % Normal 20.5-60.0 [facility] Comment on above: Performed By: #### C BC ####[facility] Vfhgmybxsu8644 [place] [phone]. Garima Pulliam MANUAL DIFF REQ NO Normal [facility] Comment on above: Performed By: #### C BC ####[facility] Pdscdxhevy9906 [place] [phone]. Garima Pulliam MCH (RBC) [Entitic mass] 30.7 pg Normal 25.9-34.0 [facility] Comment on above: Performed By: #### C BC ####[facility] Xrqailxbil[address] [place], [place] [address]Dr. Garima Pulliam MCHC (RBC) [Mass/Vol] 33.6 g/dL Normal 29.9-35.2 [facility] Comment on above: Performed By: #### C BC ####[facility] Kvaflvapqd[address] [place], [place] [address]Dr. Garima Pulliam MCV (RBC) [Entitic vol] 91.5 fL Normal 80.0-94.0 [facility] Comment on above: Performed By: #### C BC ####[facility] Zpdjpflceq[address] [place], [place] [address]Dr. Garima Pulliam MONO # 0.0 103/ul Critically low 0.3-0.8 [facility] Comment on above: Performed By: #### C BC ####[facility] Iwdmadyjaw3040 [place] [address]Dr. Garima Pulliam Monocytes/100 WBC (Bld) 8.0 % Normal 1.7-12.0 [facility] Comment on above: Performed By: #### C BC ####[facility] Nujcesexel[address] [place], [place] [address]Dr. Garima Pulliam NEUT # 5.1 103/ul Normal 1.4-6.5 [facility] Comment on above: Performed By: #### C BC ####[facility] Kxmdongjnv7175 [place], [place] [address]An. Garima Pulliam Neutrophils/100 WBC (Bld) 62.8 % Normal 43.0-75.0 [facility] Comment on above: Performed By: #### C BC ####[facility] Knpfmlbvwk3912 [place], [place] [address]Ri. Garima Pulliam Platelet mean volume (Bld) [Entitic vol] 8.6 fL Critically low 9.5-13.5 [facility] Comment on above: Performed By: #### C BC ####[facility] Jevvhwzyfe39[address] [place] [phone]. Garima Pulliam PLT 200 103/ul Normal 150-450 [facility] Comment on above: Performed By: #### C BC ####[facility] Ldyliyohje5146 [place] [phone]. Garima Pulliam RBC 4.69 106/ul Critically low 4.70-6.10 [facility] Comment on above: Performed By: #### C BC ####[facility] Ttogxilwro3558 [place], [place] [address]Vk. Garima Pulliam WBC 8.2 103/ul Normal 4.0-11.0 [facility] Comment on above: Performed By: #### C BC ####[facility] Vuqayohdny5988 [place], [place] [address]Bi. Garima Pulliam Covid-19 PCR ([facility])on SARS-CoV-2 (COVID-19) RNA MARIE+probe Ql (Unsp spec) Not detected Normal NOT DETECTED [facility] Comment on above: Result [...] for this test is supported by the Rn Teleph[employer] of Health and Human Service's declaration that [...] be used). Performed By: #### C VDTBH ####[facility] Fnbbmbdwrh[address] [place], [place] [address]Dr. Garima Pulliam INFLUENZA A AND B AGon 12-25 INFLUANEGH SEE BELOW Normal [facility] Comment on above: Result Comment: Nega tive for Flu A protein angiten. Infection due to Flu A cannot be ruled out. Flu A angiten in the sample may be below the detection limit of the test. Performed By: #### I NFLUAB ####[facility] Sfmcnfhywi[address] [place], [place] [address]Dr. Garima Pulliam INFLUBNEGH SEE BELOW Normal [facility] Comment on above: Result Comment: Nega tive for Flu B protein antigen. Infection due to Flu B cannot be ruled out. Flu B antigen in the sample may be below the detection limit of the test. Performed By: #### I NFLUAB ####[facility] Acimshmrlb314[address] [place], [place] [address]Dr. Garima Pulliam INFLUENZA A AG Negative Normal NEGATIVE SEE COMMENT [facility] Comment on above: Performed By: #### I NFLUAB ####[facility] Dubdwfrpxi224[address] [place], [place] [address]Dr. renu [facility] INFLUENZA B AG Negative Normal NEGATIVE SEE COMMENT [facility] Comment on above: Performed By: #### I NFLUAB ####[facility] Mbkfhktdwf[address] [place], [place] [address]Dr. Garima Pulliam PROF CHEM 8 (BAS METB)on Anion gap [Moles/Vol] 11.1 mmol/L Normal [facility] Comment on above: Performed By: #### B OCCUPATIONAL HEALTH SPECIALIST, BMP, CMADM ####[facility] Uamddpyuma[address] [place], [place] [address]Dr. Garima Pulliam Calcium [Mass/Vol] 8.5 mg/dL Normal 8.5-10.1 [facility] Comment on above: Performed By: #### B OCCUPATIONAL HEALTH SPECIALIST, MARVIN, CMADM ####[facility] Kbaioebhga57[address] [place] [phone]. Garima Pulliam Chloride [Moles/Vol] 106 mmol/L Normal 98-107 [facility] Comment on above: Performed By: #### B OCCUPATIONAL HEALTH SPECIALIST, BMP, CMADM ####[facility] Wyduzygybe5209 [place] [address]Dr. Garima Pulliam CO2 [Moles/Vol] 27.4 mmol/L Normal 21.0-32.0 [facility] Comment on above: Performed By: #### B OCCUPATIONAL HEALTH SPECIALIST, MARVIN, CMADM ####[facility] Xtumvysacr5844 [place] [address]Dr. Garima Pulliam Creatinine [Mass/Vol] 0.65 mg/dL Critically low 0.70-1.30 [facility] Comment on above: Performed By: #### B OCCUPATIONAL HEALTH SPECIALIST, MARVIN, CMADM ####[facility] Woitakenaw4513 [place] [address]Dr. Garima Pulliam EGFR-AF NAURUAN >60 Normal >=60 [facility] Comment on above: Performed By: #### B OCCUPATIONAL HEALTH SPECIALIST, BMP, CMADM ####[facility] Vewrvsvklh4915 [place] [address]Dr. Garima Pulliam EGFR-NON AF NAURUAN >60 Normal >=60 [facility] Comment on above: Performed By: #### B OCCUPATIONAL HEALTH SPECIALIST, BMP, CMADM ####[facility] Qulszocbfc8293 [place] [address]Dr. Garima Pulliam Glucose [Mass/Vol] 140 mg/dL Critically high 74-106 [place] Comment on above: Performed By: #### B OCCUPATIONAL HEALTH SPECIALIST, BMP, CMADM ####[facility] Ktukwyleyh2751 [place] [address]Dr. Garima Pulliam Potassium [Moles/Vol] 3.5 mmol/L Normal 3.5-5.1 [facility] Comment on above: Performed By: #### B OCCUPATIONAL HEALTH SPECIALIST, BMP, CMADM ####[facility] Jjaaqfvmqd8284 [place] [address]Dr. Garima Pulliam Sodium [Moles/Vol] 141 mmol/L Normal 136-145 [facility] Comment on above: Performed By: #### B OCCUPATIONAL HEALTH SPECIALIST, BMP, CMADM ####[facility] Hnppvilzpk5118 [place] [address]Dr. Garima Pulliam Urea nitrogen [Mass/Vol] 8.0 mg/dL Normal 7.0-18.0 [facility] Comment on above: Performed By: #### B OCCUPATIONAL HEALTH SPECIALIST, BMP, CMADM ####[facility] Lqoaeomgkp2450 [place] [address]Dr. Garima Pulliam Urea nitrogen/Creatinine [Mass ratio] 12.3 mg/mg Normal [facility] Comment on above: Performed By: #### B OCCUPATIONAL HEALTH SPECIALIST, BMP, CMADM ####[facility] Kitkvxldgf[address] [place], [place] [address]Dr. Garima Pulliam CARDIAC NASH ADMITon 023 CK [Catalytic activity/Vol] 165 U/L Normal 39-308 [facility] Comment on above: Performed By: #### B DAVID, CMADM ####[facility] Nissawybdr[address] [place], [place] [address]Dr. Garima Pulliam CK.MB [Mass/Vol] 6.48 ng/mL Critically high <=3.60 [facility] Comment on above: Performed By: #### B MP, CMADM ####[facility] Blutvmrlpv[address] [place], [place] [address]Dr. Garima Pulliam HSTROP 11.7 pg/mL Normal 4.0-76.1 [facility] Comment on above: Result Comment: CUT- OFF POINTS HAVE BEEN ESTABLISHED BASED ON THE FOURTH UNIVERSAL DEFINITIONS OF MYOCARDIALINFARCTION. THE UPPER REFERENCE LIMIT (URL) OF TROPONIN, DEFINED THE 99TH PERCENTILE OFcTnI DISTRIBUTION IN A REFERENCE POPULATION, HAS BEEN CONFIRMED THE DECISION THRESHOLDFOR ME DIAGNOSIS. Performed By: #### B MP, CMADM ####[facility] Upujbkvqmz[address] [place], [place] [address]Dr. Garima Pulliam DORIS 83 ng/mL Normal 16-96 [facility] Comment on above: Performed By: #### B MP, CMADM ####[facility] Pjrrtlofco3537 [place] [address]Dr. Garima Pulliam CBC AUTO DIFFon 12-10-2022 BASO # 0.0 103/ul Normal 0.0-0.1 [facility] Comment on above: Performed By: #### C BC ####[facility] Wpdamvgeig[address] [place], [place] [address]Dr. Garima Heraclio Basophils/100 WBC (Bld) 0.3 % Normal 0.2-2.0 [facility] Comment on above: Performed By: #### C BC ####[facility] Zuuqoimafl[address] [place], [place] [address]Dr. Garima Pulliam EO # 0.1 103/ul Normal 0.0-0.7 [facility] Comment on above: Performed By: #### C BC ####[facility] Z[address]nyujvpk[address] [place], [place] [address]Dr. Garima Pulliam Eosinophils/100 WBC (Bld) 0.4 % Critically low 0.9-7.0 [facility] Comment on above: Performed By: #### C BC ####[facility] Lkgziaykby[address] [place], [place] [address]Dr. Garima Pulliam Erythrocyte distribution width (RBC) [Ratio] 13.2 % Normal 11.0-15.0 [facility] Comment on above: Performed By: #### C BC ####[facility] Mjkxoakzqu[address] [place], [place] [address]Dr. Garima Pulliam Hematocrit (Bld) [Volume fraction] 42.4 % Normal 42.0-54.0 [facility] Comment on above: Performed By: #### C BC ####[facility] Piamqgdwxr[address] [place], [place] [address]Dr. Garima Pulliam Hemoglobin (Bld) [Mass/Vol] 14.4 g/dL Normal 14.0-18.0 [facility] Comment on above: Performed By: #### C BC ####[facility] Nxbzfugwvp6112 [place] [phone]. Garima Heraclio IG # 0.05 10e3/ul Critically high 0.00-0.03 [facility] Comment on above: Performed By: #### C BC ####[facility] Kidrfxjomi9523 [place] [address]Dr. Garima Heraclio IG % 0.4 % Normal 0.0-0.5 [facility] Comment on above: Performed By: #### C BC ####[facility] Bjpoomqlyj[address] [place], [place] [address]Dr. Garima Pulliam LYMPH # 0.8 103/ul Critically low 1.2-3.8 [facility] Comment on above: Performed By: #### C BC ####[facility] Tmidxlobnk[address] [place], [place] [address]Dr. Chapisrenu Pulliam Lymphocytes/100 WBC (Bld) 6.5 % Critically low 20.5-60.0 [facility] Comment on above: Performed By: #### C BC ####[facility] Lovsaiggbb[address] [place], [place] [address]Dr. Chapisrenu Pulliam MANUAL DIFF REQ NO Normal [facility] Comment on above: Performed By: #### C BC ####[facility] Woaudrtuih[address] [place], [place] [address]DrAdalberto Garima Pulliam MCH (RBC) [Entitic mass] 30.5 pg Normal 25.9-34.0 [facility] Comment on above: Performed By: #### C BC ####[facility] Sovqdabtxh[address] [place], [place] [address]DrAdalberto Garima Heraclio MCHC (RBC) [Mass/Vol] 34.0 g/dL Normal 29.9-35.2 [facility] Comment on above: Performed By: #### C BC ####[facility] [address]ocuewv[address] [place], [place] [address]DrAdalberto Garima Heraclio MCV (RBC) [Entitic vol] 89.8 fL Normal 80.0-94.0 [facility] Comment on above: Performed By: #### C BC ####[facility] Eynltzjfrw[address] [place], [place] [address]Dr. Garima Pulliam MONO # 0.2 103/ul Critically low 0.3-0.8 [facility] Comment on above: Performed By: #### C BC ####[facility] Jlgwkbygop[address] [place] [phone]. Garima Pulliam Monocytes/100 WBC (Bld) 2.0 % Normal 1.7-12.0 [facility] Comment on above: Performed By: #### C BC ####[facility] Eoywzryinm47[address] [place] [address]Dr. Chapisrenu Heraclio NEUT # 10.5 103/ul Critically high 1.4-6.5 [facility] Comment on above: Performed By: #### C BC ####[facility] Klnqcqzumd8392 [place] [address]Dr. Garima Pulliam Neutrophils/100 WBC (Bld) 90.4 % Critically high 43.0-75.0 [facility] Comment on above: Performed By: #### C BC ####[facility] Wdcgfmlmtq5135 [place] [address]Dr. Garima Pulliam Platelet mean volume (Bld) [Entitic vol] 9.4 fL Critically low 9.5-13.5 The [facility] Comment on above: Performed By: #### C BC ####[facility] Hktedkwlza7[address] [place] [address]Dr. Garima Pulliam PLT 198 103/ul Normal 150-450 [facility] Comment on above: Performed By: #### C BC ####[facility] Deuoxkfsjt5005 [place] [address]Dr. Garima Pulliam RBC 4.72 106/ul Normal 4.70-6.10 [facility] Comment on above: Performed By: #### C BC ####[facility] Izozoroydc9451 [place] [phone]. Garima Pulliam WBC 11.6 103/ul Critically high 4.0-11.0 [facility] Comment on above: Performed By: #### C BC ####[facility] Rlvalbrofp7800 [place] [address]DrAdalberto Pulliam PROF CHEM 8 (BAS METB)on Anion gap [Moles/Vol] 11.3 mmol/L Normal [facility] Comment on above: Performed By: #### B NANCY HERNANDEZ ####[facility] Szdtulrxnc7125 [place] [address]Dr. Garima Pulliam Calcium [Mass/Vol] 8.9 mg/dL Normal 8.5-10.1 [facility] Comment on above: Performed By: #### B NANCY HERNANDEZ ####[facility] Rncvxebvxk6661 [place] [address]Dr. Garima Pulliam Chloride [Moles/Vol] 103 mmol/L Normal 98-107 [facility] Comment on above: Performed By: #### B NANCY HERNANDEZ ####[facility] Vimafnbeeu7[address] [place], [place] [address]Dr. Garima Pulliam CO2 [Moles/Vol] 28.2 mmol/L Normal 21.0-32.0 [facility] Comment on above: Performed By: #### NANCY Larkin MP ####[facility] Avgcleobzp70[address] [place] [address]Dr. Chapisrenu Pulliam Creatinine [Mass/Vol] 0.60 mg/dL Critically low 0.70-1.30 [facility] Comment on above: Performed By: #### NANCY Larkin MP ####[facility] Sodtnqtltu6774 [place] [address]Dr. Garima Pulliam EGFR-AF NAURUAN >60 Normal >=60 [facility] Comment on above: Performed By: #### NANCY Larkin MP ####[facility] Bnhwlximkh3625 [place] [address]Dr. Garima Pulliam EGFR-NON AF NAURUAN >60 Normal >=60 [facility] Comment on above: Performed By: #### NANCY Larkin MP ####[facility] Mxdmcrqivo[address] [place], [place] [address]Dr. Garima Pulliam Glucose [Mass/Vol] 166 mg/dL Critically high 74-106 [place] Comment on above: Performed By: #### B MP, CMADM ####[facility] Bevqyvojda6257 [place] [address]Dr. Garima Pulliam Potassium [Moles/Vol] 3.5 mmol/L Normal 3.5-5.1 [facility] Comment on above: Performed By: #### B MP, CMADM ####[facility] Qiblipbmnn3659 [place] [address]Dr. Garima Pulliam Sodium [Moles/Vol] 139 mmol/L Normal 136-145 [facility] Comment on above: Performed By: #### B DAVID, CMADM ####[facility] Tlmvrciasm4966 [place] [address]Dr. Garima Heraclio Urea nitrogen [Mass/Vol] 9.0 mg/dL Normal 7.0-18.0 [facility] Comment on above: Performed By: #### B DAVID, NANCY ####[facility] Epchllmzpl[address] [place], [place] [address]Dr. Garima Heraclio Urea nitrogen/Creatinine [Mass ratio] 15.0 mg/mg Normal [facility] Comment on above: Performed By: #### B DAVID, CMAANA ROSA ####[facility] Okcrvegiui387[address] [place], [place] [address]Dr. Garima Pulliam XR CHEST 1 Von 12-10-2022 XR CHEST 1 V Normal [facility] BNPon 11-27-2022 Natriuretic peptide B (Bld) [Mass/Vol] 95.0 pg/mL Normal <=900.0 [facility] Comment on above: Performed By: #### C MP, HSTROPN, BNP ####[facility] Fvfjudhuxu275[address] [place], [place] [address]Dr. Garima Heraclio CBC AUTO DIFFon 11-27-2022 BASO # 0.0 103/ul Normal 0.0-0.1 [facility] Comment on above: Performed By: #### C BC ####[facility] Jgjokgahti[address] [place], [place] [address]Dr. Garima Heraclio Basophils/100 WBC (Bld) 0.2 % Normal 0.2-2.0 [facility] Comment on above: Performed By: #### C BC ####[facility] Pdfjerhiyh7094 [place] [phone]. Garima Pulliam EO # 0.2 103/ul Normal 0.0-0.7 [facility] Comment on above: Performed By: #### C BC ####[facility] Ucsujjgppz0743 [place] [phone]. Garima Pulliam Eosinophils/100 WBC (Bld) 2.0 % Normal 0.9-7.0 [facility] Comment on above: Performed By: #### C BC ####[facility] Cqvezcylvo015[address] [place], [place] [address]Dr. Garima Pulliam Erythrocyte distribution width (RBC) [Ratio] 13.2 % Normal 11.0-15.0 [facility] Comment on above: Performed By: #### C BC ####[facility] Rpwngtjihj[address] [place], [place] [address]Dr. Garima Pulliam Hematocrit (Bld) [Volume fraction] 42.4 % Normal 42.0-54.0 [facility] Comment on above: Performed By: #### C BC ####[facility] Teoakljbxa[address] [place], [place] [address]Dr. Garima Pulliam Hemoglobin (Bld) [Mass/Vol] 14.4 g/dL Normal 14.0-18.0 [facility] Comment on above: Performed By: #### C BC ####[facility] Uiddarncar[address] [place], [place] [address]Dr. Garima Pulliam IG # 0.04 10e3/ul Critically high 0.00-0.03 The [facility] Comment on above: Performed By: #### C BC ####[facility] Rvzgcunhem[address] [place], [place] [address]Dr. Garima Pulliam IG % 0.4 % Normal 0.0-0.5 [facility] Comment on above: Performed By: #### C BC ####[facility] Bcptnuuhoi[address] [place], [place] [address]Dr. Garima Pulliam LYMPH # 2.2 103/ul Normal 1.2-3.8 [facility] Comment on above: Performed By: #### C BC ####[facility] Rxvvxldhai8663 [place] [phone]. Garima Pulliam Lymphocytes/100 WBC (Bld) 21.5 % Normal 20.5-60.0 [facility] Comment on above: Performed By: #### C BC ####[facility] Xsavdxwddn0460 [place] [phone]. Garima Heraclio MANUAL DIFF REQ NO Normal [facility] Comment on above: Performed By: #### C BC ####[facility] Nnrondnhag1500 [place] [phone]. Garima Heraclio MCH (RBC) [Entitic mass] 30.4 pg Normal 25.9-34.0 [facility] Comment on above: Performed By: #### C BC ####[facility] Zfgiafauqh1458 [place] [address]Dr. Garima Heraclio MCHC (RBC) [Mass/Vol] 34.0 g/dL Normal 29.9-35.2 [facility] Comment on above: Performed By: #### C BC ####[facility] Ivgcvqyepf5285 [place] [phone]. Garima Pulliam MCV (RBC) [Entitic vol] 89.6 fL Normal 80.0-94.0 [facility] Comment on above: Performed By: #### C BC ####[facility] Iukaewlwsr5678 [place] [phone]. Garima Pulliam MONO # 0.8 103/ul Normal 0.3-0.8 [facility] Comment on above: Performed By: #### C BC ####[facility] Gmcmaczoff0207 [place] [phone]. Chapisrenu Pulliam Monocytes/100 WBC (Bld) 7.7 % Normal 1.7-12.0 [facility] Comment on above: Performed By: #### C BC ####[facility] Buztiaxsrw[address] [place], [place] [address]Dr. Garima Pulliam NEUT # 7.0 103/ul Critically high 1.4-6.5 [facility] Comment on above: Performed By: #### C BC ####[facility] Writeotigf2885 [place] [phone]. Garima Pulliam Neutrophils/100 WBC (Bld) 68.2 % Normal 43.0-75.0 [facility] Comment on above: Performed By: #### C BC ####[facility] Nihupczpkk9089 [place] [phone]. Chapisrenu Pulliam Platelet mean volume (Bld) [Entitic vol] 8.9 fL Critically low 9.5-13.5 [facility] Comment on above: Performed By: #### C BC ####[facility] Hwxkxqxacq6191 [place] [address]Dr. Garima Pulliam PLT 222 103/ul Normal 150-450 [facility] Comment on above: Performed By: #### C BC ####[facility] Kmdysryoyw8275 [place] [address]Dr. Garima Pulliam RBC 4.73 106/ul Normal 4.70-6.10 [facility] Comment on above: Performed By: #### C BC ####[facility] Fhmzaszzfz4996 [place] [address]Dr. Garima Pulliam WBC 10.3 103/ul Normal 4.0-11.0 [facility] Comment on above: Performed By: #### C BC ####[facility] Yduhrwawdq1067 [place] [address]Dr. Garima Pulliam PROF 14(COMP METB)on 023 Albumin [Mass/Vol] 3.7 g/dL Normal 3.4-5.0 [facility] Comment on above: Performed By: #### C MP, HSTROPN, BNP ####[facility] Htopncvgdj2407 [place] [address]Dr. Chapisrenu Pulliam Albumin/Globulin [Mass ratio] 1.5 {ratio} Normal [facility] Comment on above: Performed By: #### C MP, HSTROPN, BNP ####[facility] Nkmiydxayb8279 [place] [address]Dr. Garima Pulliam ALP [Catalytic activity/Vol] 79 U/L Normal 46-116 [facility] Comment on above: Performed By: #### C MP, HSTROPN, BNP ####[facility] Vjvicxscam0770 [place] [address]Dr. Garima Pulliam ALT [Catalytic activity/Vol] 32 U/L Normal 16-63 [facility] Comment on above: Performed By: #### C MP, HSTROPN, BNP ####[facility] Quguifshbv8261 [place] [address]Dr. Garima Pulliam Anion gap [Moles/Vol] 9.5 mmol/L Normal [facility] Comment on above: Performed By: #### C MP, HSTROPN, BNP ####[facility] Zlikprqkeu[address] [place], [place] [address]Dr. Garima Pulliam AST [Catalytic activity/Vol] 25 U/L Normal 15-37 [facility] Comment on above: Performed By: #### C MP, HSTROPN, BNP ####[facility] Kdqpvupyyq654[address] [place], [place] [address]Dr. Chapislan Pulliam Bilirubin [Mass/Vol] 0.4 mg/dL Normal 0.2-1.0 [facility] Comment on above: Performed By: #### C MP, HSTROPN, BNP ####[facility] Ecanbqgkxq[address] [place], [place] [address]Dr. Garima Pulliam Calcium [Mass/Vol] 8.9 mg/dL Normal 8.5-10.1 [facility] Comment on above: Performed By: #### C MP, HSTROPN, BNP ####[facility] Vjnujwiipp[address] [place], [place] [address]Dr. Chapislan Pulliam Chloride [Moles/Vol] 103 mmol/L Normal 98-107 [facility] Comment on above: Performed By: #### C MP, HSTROPN, BNP ####[facility] Gzjfglahkm[address] [place], [place] [address]Dr. Yilan Pulliam CO2 [Moles/Vol] 28.6 mmol/L Normal 21.0-32.0 [facility] Comment on above: Performed By: #### C MP, HSTROPN, BNP ####[facility] Gmxjaskrlq1537 [place] [address]Dr. Garima Pulliam Creatinine [Mass/Vol] 0.72 mg/dL Normal 0.70-1.30 [facility] Comment on above: Performed By: #### C MP, HSTROPN, BNP ####[facility] Ojhqvxtxbi6914 [place] [address]Dr. Garima Pulliam EGFR-AF NAURUAN >60 Normal >=60 [facility] Comment on above: Performed By: #### C MP, HSTROPN, BNP ####[facility] Yzegetwvei6562 [place] [address]Dr. Garima Pulliam EGFR-NON AF NAURUAN >60 Normal >=60 [facility] Comment on above: Performed By: #### C MP, HSTROPN, BNP ####[facility] Uccoehhtpq7102 [place] [address]Dr. Garima Pulliam Globulin (S) [Mass/Vol] 2.5 g/dL Normal [facility] Comment on above: Performed By: #### C MP, HSTROPN, BNP ####[facility] Vyphzvclas[address] [place], [place] [address]Dr. Garima Pulliam Glucose [Mass/Vol] 114 mg/dL Critically high 74-106 [facility] Comment on above: Performed By: #### C MP, HSTROPN, BNP ####[facility] Hsccvaacfc94[address] [place], [place] [address]Dr. Garima Pulliam Potassium [Moles/Vol] 4.1 mmol/L Normal 3.5-5.1 [facility] Comment on above: Performed By: #### C MP, HSTROPN, BNP ####[facility] Pikanejoqb[address] [place], [place] [address]Dr. Garima Pulliam Protein [Mass/Vol] 6.2 g/dL Critically low 6.4-8.2 [facility] Comment on above: Performed By: #### C MP, HSTROPN, BNP ####[facility] Odmaiicjcm[address] [place], [place] [address]Dr. Yilan Pulliam Sodium [Moles/Vol] 137 mmol/L Normal 136-145 [facility] Comment on above: Performed By: #### C MP, HSTROPN, BNP ####[facility] Anbrlxwzzn1924 [place] [address]Dr. Garima Pulliam Urea nitrogen [Mass/Vol] 13.0 mg/dL Normal 7.0-18.0 [facility] Comment on above: Performed By: #### C MP, HSTROPN, BNP ####[facility] Crwthdmeeo2627 [place] [address]Dr. Garima Pulliam Urea nitrogen/Creatinine [Mass ratio] 18.1 mg/mg Normal [facility] Comment on above: Performed By: #### C MP, HSTROPN, BNP ####[facility] Lotpkgzach24[address] [place], [place] [address]Dr. Garima Pulliam TROPONIN, HIGH SENSITIVITYon 11-27-2022 HSTROP 11.8 pg/mL Normal 4.0-76.1 [facility] Comment on above: Result Comment: CUT- OFF POINTS HAVE BEEN ESTABLISHED BASED ON THE FOURTH UNIVERSAL DEFINITIONS OF MYOCARDIALINFARCTION. THE UPPER REFERENCE LIMIT (URL) OF TROPONIN, DEFINED THE 99TH PERCENTILE OFcTnI DISTRIBUTION IN A REFERENCE POPULATION, HAS BEEN CONFIRMED THE DECISION THRESHOLDFOR ME DIAGNOSIS. Performed By: #### C MP, HSTROPN, BNP ####[facility] Cjwnemairo[address] [place], [place] [address]Dr. Garima Pulliam XR CHEST 1 Von 11-27-2022 XR CHEST 1 V Normal [facility] BNPon 11-20-2022 Natriuretic peptide B (Bld) [Mass/Vol] 73.0 pg/mL Normal <=900.0 [facility] Comment on above: Performed By: #### B MP, HSTROPN, BNP ####[facility] Byevuwnvcs[address] [place], [place] [address]Dr. Garima Pulliam CBC AUTO DIFFon 11-20-2022 BASO # 0.0 103/ul Normal 0.0-0.1 [facility] Comment on above: Performed By: #### C BC ####[facility] Iyxprvzlbp6606 [place] [phone]. Garima Pulliam Basophils/100 WBC (Bld) 0.3 % Normal 0.2-2.0 [facility] Comment on above: Performed By: #### C BC ####[facility] Twvpozfsjd4848 [place] [phone]. Garima Pulliam EO # 0.2 103/ul Normal 0.0-0.7 [facility] Comment on above: Performed By: #### C BC ####[facility] Umpbzpcatv9682 [place] [address]Dr. Garima Pulliam Eosinophils/100 WBC (Bld) 2.1 % Normal 0.9-7.0 [facility] Comment on above: Performed By: #### C BC ####[facility] Matsqdpqmz[address] [place], [place] [address]Dr. Garima Pulliam Erythrocyte distribution width (RBC) [Ratio] 13.2 % Normal 11.0-15.0 [facility] Comment on above: Performed By: #### C BC ####[facility] Kjadmcfubs[address] [place], [place] [address]Dr. Garima Pulliam Hematocrit (Bld) [Volume fraction] 43.4 % Normal 42.0-54.0 [facility] Comment on above: Performed By: #### C BC ####[facility] Evxqpwnhdg[address] [place], [place] [id number]. Garima Pulliam Hemoglobin (Bld) [Mass/Vol] 14.6 g/dL Normal 14.0-18.0 [facility] Comment on above: Performed By: #### C BC ####[facility] Kbooqtksqj5218 [place] [phone]. Garima Pulliam IG # 0.02 10e3/ul Normal 0.00-0.03 [facility] Comment on above: Performed By: #### C BC ####[facility] Dsgkwznipq5012 [place] [address]Dr. Garima Pulliam IG % 0.2 % Normal 0.0-0.5 [facility] Comment on above: Performed By: #### C BC ####[facility] Ewlsuplqkn4361 [place] [phone]. Garima Heraclio LYMPH # 2.1 103/ul Normal 1.2-3.8 [facility] Comment on above: Performed By: #### C BC ####[facility] Pyxfhzyhlz8212 [place] [phone]. Garima Heraclio Lymphocytes/100 WBC (Bld) 19.2 % Critically low 20.5-60.0 [facility] Comment on above: Performed By: #### C BC ####[facility] Ynipnwaofr3344 [place] [phone]. Chapisrenu Pulliam MANUAL DIFF REQ NO Normal [facility] Comment on above: Performed By: #### C BC ####[facility] Ziohqfcewm0323 [place] [phone]. Garima Heraclio MCH (RBC) [Entitic mass] 30.4 pg Normal 25.9-34.0 [facility] Comment on above: Performed By: #### C BC ####[facility] Omlvxuwixj0751 [place] [address]Dr. Garima Pulliam MCHC (RBC) [Mass/Vol] 33.6 g/dL Normal 29.9-35.2 [facility] Comment on above: Performed By: #### C BC ####[facility] Lqsfkcmgdh4745 [place] [phone]. Garima Heraclio MCV (RBC) [Entitic vol] 90.4 fL Normal 80.0-94.0 [facility] Comment on above: Performed By: #### C BC ####[facility] Mkpdhfcabn0440 [place] [phone]. Garima Heraclio MONO # 0.6 103/ul Normal 0.3-0.8 [facility] Comment on above: Performed By: #### C BC ####[facility] Heufzfqrxe6604 [place] [address]Dr. Garima Heraclio Monocytes/100 WBC (Bld) 5.8 % Normal 1.7-12.0 [facility] Comment on above: Performed By: #### C BC ####[facility] Xjujqtmwio8158 [place], [place] [address]Kg. Garima Pulliam NEUT # 7.8 103/ul Critically high 1.4-6.5 [facility] Comment on above: Performed By: #### C BC ####[facility] Xcmzntnzln7496 [place] [phone]. Garima Pulliam Neutrophils/100 WBC (Bld) 72.4 % Normal 43.0-75.0 [facility] Comment on above: Performed By: #### C BC ####[facility] Lxvrivelgr8430 [place] [phone]. Garima Pulliam Platelet mean volume (Bld) [Entitic vol] 8.7 fL Critically low 9.5-13.5 [facility] Comment on above: Performed By: #### C BC ####[facility] Qiymxhxcei0108 [place] [phone]. Garima Pulliam PLT 184 103/ul Normal 150-450 [facility] Comment on above: Performed By: #### C BC ####[facility] Vqsqysawpn2908 [place], [place] [address]Jl. Garima Pulliam RBC 4.80 106/ul Normal 4.70-6.10 [facility] Comment on above: Performed By: #### C BC ####[facility] Pdypabflko2764 [place] [phone]. Garima Pulliam WBC 10.8 103/ul Normal 4.0-11.0 [facility] Comment on above: Performed By: #### C BC ####[facility] Kanxyixosm9435 [place] [phone]. Garima Pulliam Covid-19 PCR ([facility])on 10-24 SARS-CoV-2 (COVID-19) RNA MARIE+probe Ql (Unsp spec) Not detected Normal NOT DETECTED [facility] Comment on above: Result [...] for this test is supported by the Rn [employer]ph[employer] of Health and Human Service's declaration that [...] be used). Performed By: #### C VDTBH ####[facility] Adbgecdusl[address] [place], [place] [address]Dr. Garima Pulliam INFLUENZA A AND B AGon 11-20 INFLUCOPPER [facility] SEE BELOW Normal [facility] Comment on above: Result Comment: Nega tive for Flu A protein angiten. Infection due to Flu A cannot be ruled out. Flu A angiten in the sample may be below the detection limit of the test. Performed By: #### I NFLUAB ####[facility] Hs[address]llmiyb[address] [place], [place] [address]Dr. Garima Pulliam INFLUBNEGH SEE BELOW Normal [facility] Comment on above: Result Comment: Nega tive for Flu B protein antigen. Infection due to Flu B cannot be ruled out. Flu B antigen in the sample may be below the detection limit of the test. Performed By: #### I NFLUAB ####[facility] Levkhxlsfe[address] [place], [place] [address]Dr. Garima Pulliam INFLUENZA A AG Negative Normal NEGATIVE SEE COMMENT [facility] Comment on above: Performed By: #### I NFLUAB ####[facility] Ehzwvtigst[address] [place], [place] [address]Dr. Garima [facility] INFLUENZA B AG Negative Normal NEGATIVE SEE COMMENT [facility] Comment on above: Performed By: #### I NFLUAB ####[facility] Ylprhbukgm[address] [place], [place] [address]Dr. Garima Pulliam PROF CHEM 8 (BAS METB)on Anion gap [Moles/Vol] 8.2 mmol/L Normal [facility] Comment on above: Performed By: #### B MP, HSTROPN, BNP ####[facility] [address] [place] [address]Dr. Garima Pulliam Calcium [Mass/Vol] 8.7 mg/dL Normal 8.5-10.1 [facility] Comment on above: Performed By: #### B MP, HSTROPN, BNP ####[facility] Ilregufxnj52[address] [place] [address]Dr. Garima Pulliam Chloride [Moles/Vol] 103 mmol/L Normal 98-107 [facility] Comment on above: Performed By: #### B MP, HSTROPN, BNP ####[facility] Fdesccihvq[address] [place], [place] [address]Dr. Garima Pulliam CO2 [Moles/Vol] 29.4 mmol/L Normal 21.0-32.0 [facility] Comment on above: Performed By: #### B MP, HSTROPN, BNP ####[facility] Dcdiinkrex93[address] [place], [place] [address]Dr. Garima Pulliam Creatinine [Mass/Vol] 0.69 mg/dL Critically low 0.70-1.30 [facility] Comment on above: Performed By: #### B MP, HSTROPN, BNP ####[facility] Frefihcmmc66[address] [place] [address]Dr. Garima Pulliam EGFR-AF NAURUAN >60 Normal >=60 [facility] Comment on above: Performed By: #### B MP, HSTROPN, BNP ####[facility] Usqqkicyew22[address] [place], [place] [address]Dr. Garima Pulliam EGFR-NON AF NAURUAN >60 Normal >=60 [facility] Comment on above: Performed By: #### B MP, HSTROPN, BNP ####[facility] Haxseijflw70[address] [place] [address]Dr. Garima Pulliam Glucose [Mass/Vol] 209 mg/dL Critically high 74-106 [facility] Comment on above: Performed By: #### B MP, HSTROPN, BNP ####[facility] Dhigudrqua28[address] [place] [address]Dr. Garima Pulliam Potassium [Moles/Vol] 3.6 mmol/L Normal 3.5-5.1 [facility] Comment on above: Performed By: #### B MP, HSTROPN, BNP ####[facility] Ksrcvookuf[address] [place] [address]Dr. Garima Pulliam Sodium [Moles/Vol] 137 mmol/L Normal 136-145 [facility] Comment on above: Performed By: #### B MP, HSTROPN, BNP ####[facility] Xtintnnzse88[address] [place] [address]Dr. Garima Pulliam Urea nitrogen [Mass/Vol] 11.0 mg/dL Normal 7.0-18.0 [facility] Comment on above: Performed By: #### B MP, HSTROPN, BNP ####[facility] Txoifoodea2582 [place] [address]Dr. Garima Pulliam Urea nitrogen/Creatinine [Mass ratio] 15.9 mg/mg Normal [facility] Comment on above: Performed By: #### B MP, HSTROPN, BNP ####[facility] Gfzaxepdpg54[address] [place] [address]Dr. Garima Pulliam TROPONIN, HIGH SENSITIVITYon 11-20-2022 HSTROP 8.7 pg/mL Normal 4.0-76.1 [facility] Comment on above: Result Comment: CUT- OFF POINTS HAVE BEEN ESTABLISHED BASED ON THE FOURTH UNIVERSAL DEFINITIONS OF MYOCARDIALINFARCTION. THE UPPER REFERENCE LIMIT (URL) OF TROPONIN, DEFINED THE 99TH PERCENTILE OFcTnI DISTRIBUTION IN A REFERENCE POPULATION, HAS BEEN CONFIRMED THE DECISION THRESHOLDFOR ME DIAGNOSIS. Performed By: #### B MP, HSTROPN, BNP ####[facility] Imgdlsjgoc7[address] [place] [address]Dr. Garima Pulliam XR CHEST 1 Von 11-20-2022 XR CHEST 1 V Normal [facility] XR CHEST 1 Von 10-02-2022 XR CHEST 1 V Normal [facility] BNPon 09-29-2022 Natriuretic peptide B (Bld) [Mass/Vol] 107.0 pg/mL Normal <=900.0 [facility] Comment on above: Performed By: #### C MP, BNP, CMADM ####[facility] Zodqzgqzzf9667 [place] [address]Dr. Garima Pulliam CARDIAC NASH ADMITon 022 CK [Catalytic activity/Vol] 190 U/L Normal 39-308 [facility] Comment on above: Performed By: #### C MP, BNP, CMADM ####[facility] Laahxxxsub3542 [place] [address]Dr. Garima Heraclio CK.MB [Mass/Vol] 11.11 ng/mL Critically high <=3.60 [facility] Comment on above: Performed By: #### C MP, BNP, CMADM ####[facility] Qwwuzcrdrh6707 [place] [address]Dr. Garima Pulliam HSTROP 11.8 pg/mL Normal 4.0-76.1 [facility] Comment on above: Result Comment: CUT- OFF POINTS HAVE BEEN ESTABLISHED BASED ON THE FOURTH UNIVERSAL DEFINITIONS OF MYOCARDIALINFARCTION. THE UPPER REFERENCE LIMIT (URL) OF TROPONIN, DEFINED THE 99TH PERCENTILE OFcTnI DISTRIBUTION IN A REFERENCE POPULATION, HAS BEEN CONFIRMED THE DECISION THRESHOLDFOR ME DIAGNOSIS. Performed By: #### C MP, BNP, CMADM ####[facility] Kwddtntfbu5015 [place] [address]Dr. Garima Pulliam DORIS 133 ng/mL Critically high 16-96 [facility] Comment on above: Performed By: #### C MP, BNP, CMADM ####[facility] Oublqcvpzp0380 [place] [address]Dr. Garima Heraclio CBC AUTO DIFFon 09-29-2022 BASO # 0.0 103/ul Normal 0.0-0.1 [facility] Comment on above: Performed By: #### C BC ####[facility] Cdyfwohboi8[address] [place] [address]Dr. Garima Heraclio Basophils/100 WBC (Bld) 0.2 % Normal 0.2-2.0 [facility] Comment on above: Performed By: #### C BC ####[facility] Dxtklaomyi[address] [place] [phone]. Garima Pulliam EO # 0.1 103/ul Normal 0.0-0.7 [facility] Comment on above: Performed By: #### C BC ####[facility] Jxixqvnuxq5153 [place] [phone]. Garima Pulliam Eosinophils/100 WBC (Bld) 1.4 % Normal 0.9-7.0 [facility] Comment on above: Performed By: #### C BC ####[facility] Hwgrybolgo[address] [place], [place] [address]Dr. Garima Pulliam Erythrocyte distribution width (RBC) [Ratio] 13.7 % Normal 11.0-15.0 [facility] Comment on above: Performed By: #### C BC ####[facility] Olmfcdvmgd9[address] [place], [place] [address]Dr. Garima Pulliam Hematocrit (Bld) [Volume fraction] 45.4 % Normal 42.0-54.0 [facility] Comment on above: Performed By: #### C BC ####[facility] Sitehfasoj740[address] [place], [place] [address]Dr. Garima Pulliam Hemoglobin (Bld) [Mass/Vol] 14.8 g/dL Normal 14.0-18.0 [facility] Comment on above: Performed By: #### C BC ####[facility] Zzfwaaixhp[address] [place], [place] [address]Dr. Garima Pulliam IG # 0.04 10e3/ul Critically high 0.00-0.03 [facility] Comment on above: Performed By: #### C BC ####[facility] Yergwbfica[address] [place], [place] [address]Dr. Garima Pulliam IG % 0.5 % Normal 0.0-0.5 [facility] Comment on above: Performed By: #### C BC ####[facility] Zzoknlqsec[address] [place], [place] [address]Dr. Garima Pulliam LYMPH # 1.1 103/ul Critically low 1.2-3.8 [facility] Comment on above: Performed By: #### C BC ####[facility] Mstwoeovim6902 [place] [phone]. Garima Pulliam Lymphocytes/100 WBC (Bld) 12.7 % Critically low 20.5-60.0 [facility] Comment on above: Performed By: #### C BC ####[facility] Vgyudetsvq2935 [place] [phone]. Chapisrenu Pulliam MANUAL DIFF REQ NO Normal [facility] Comment on above: Performed By: #### C BC ####[facility] Wo[address]ompppq[address] [place], [place] [phone]. Garima Heraclio MCH (RBC) [Entitic mass] 30.0 pg Normal 25.9-34.0 [facility] Comment on above: Performed By: #### C BC ####[facility] Fnxzdqnuco[address] [place], [place] [address]Dr. Garima Heraclio MCHC (RBC) [Mass/Vol] 32.6 g/dL Normal 29.9-35.2 [facility] Comment on above: Performed By: #### C BC ####[facility] [address] [place], [place] [phone]. Garima Heraclio MCV (RBC) [Entitic vol] 91.9 fL Normal 80.0-94.0 [facility] Comment on above: Performed By: #### C BC ####[facility] Exjhsjsonl[address] [place], [place] [address]Dr. Garima Pulliam MONO # 0.4 103/ul Normal 0.3-0.8 [facility] Comment on above: Performed By: #### C BC ####[facility] Imfqrquzxg[address] [place], [place] [phone]. Chapisrenu Pulliam Monocytes/100 WBC (Bld) 4.8 % Normal 1.7-12.0 [facility] Comment on above: Performed By: #### C BC ####[facility] Eaorotnxxk[address] [place], [place] [phone]. Garima Pulliam NEUT # 7.1 103/ul Critically high 1.4-6.5 [facility] Comment on above: Performed By: #### C BC ####[facility] Ksm[address]okjjok[address] [place], [place] [address]Vg. Garima Pulliam Neutrophils/100 WBC (Bld) 80.4 % Critically high 43.0-75.0 [facility] Comment on above: Performed By: #### C BC ####[facility] Nlkzlwghyd7055 [place] [phone]. Garima Pulliam Platelet mean volume (Bld) [Entitic vol] 9.1 fL Critically low 9.5-13.5 [facility] Comment on above: Performed By: #### C BC ####[facility] Jzhhxktfyz59[address] [place] [phone]. Garima Pulliam PLT 200 103/ul Normal 150-450 [facility] Comment on above: Performed By: #### C BC ####[facility] Cwbquoyppa9975 [place] [phone]. Garima Pulliam RBC 4.94 106/ul Normal 4.70-6.10 [facility] Comment on above: Performed By: #### C BC ####[facility] Pjaxhzkzxc8666 [place] [phone]. Garima Pulliam WBC 8.9 103/ul Normal 4.0-11.0 [facility] Comment on above: Performed By: #### C BC ####[facility] Xqvoqklefs5152 [place] [phone]. Garima Pulliam Covid-19 PCR (CVDTB)on SARS-CoV-2 (COVID-19) RNA MARIE+probe Ql (Unsp spec) Not detected Normal NOT DETECTED [facility] Comment on above: Result [...] for this test is supported by the Rn Teleph[employer] of Health and Human Service's declaration that [...] be used). Performed By: #### C VDTBH ####[facility] Mzjblmgrnf6035 [place] [address]Dr. Garima Pulliam LACTATE/LACTIC ACIDon 2021 Lactate [Moles/Vol] 1.7 mmol/L Normal 0.4-1.9 [facility] Comment on above: Performed By: #### L ACT ####[facility] Pcgdvczzhj[address] [place], [place] [address]Dr. Garima Pulliam PROF 14(COMP METB)on 022 Albumin [Mass/Vol] 3.8 g/dL Normal 3.4-5.0 [facility] Comment on above: Performed By: #### C MP, BNP, CMADM ####[facility] [address]awujudqg14[address] [place], [place] [address]Dr. Garima Pulliam Albumin/Globulin [Mass ratio] 1.5 {ratio} Normal [facility] Comment on above: Performed By: #### C MP, BNP, CMADM ####[facility] Ebolpjdyzw37[address] [place] [address]Dr. Garima Pulliam ALP [Catalytic activity/Vol] 62 U/L Normal 46-116 [facility] Comment on above: Performed By: #### C MP, BNP, CMADM ####[facility] Qdoihrolhh3374 [place] [address]Dr. Garima Pulliam ALT [Catalytic activity/Vol] 37 U/L Normal 16-63 [facility] Comment on above: Performed By: #### C MP, BNP, CMADM ####[facility] Qqzjuxuyjn9380 [place] [address]Dr. Garima Pulliam Anion gap [Moles/Vol] 8.0 mmol/L Normal [facility] Comment on above: Performed By: #### C MP, BNP, CMADM ####[facility] Rdjjcvftqe8748 [place] [address]Dr. Garima Pulliam AST [Catalytic activity/Vol] 20 U/L Normal 15-37 [facility] Comment on above: Performed By: #### C MP, BNP, CMADM ####[facility] Zkjnlflwiz9772 [place] [address]Dr. Garima Pulliam Bilirubin [Mass/Vol] 0.6 mg/dL Normal 0.2-1.0 [facility] Comment on above: Performed By: #### C MP, BNP, CMADM ####[facility] Dmztrgqzsl0258 [place] [address]Dr. Garima Pulliam Calcium [Mass/Vol] 9.1 mg/dL Normal 8.5-10.1 [facility] Comment on above: Performed By: #### C MP, BNP, CMADM ####[facility] Xdzcgdrnbx[address] [place], [place] [address]Dr. Garima Pulliam Chloride [Moles/Vol] 103 mmol/L Normal 98-107 [facility] Comment on above: Performed By: #### C MP, BNP, CMADM ####[facility] Qiukfxwyaz[address] [place], [place] [address]Dr. Garima Pulliam CO2 [Moles/Vol] 31.8 mmol/L Normal 21.0-32.0 [facility] Comment on above: Performed By: #### C MP, BNP, CMADM ####[facility] Mcuxetqbhl[address] [place], [place] [address]Dr. Garima Pulliam Creatinine [Mass/Vol] 0.63 mg/dL Critically low 0.70-1.30 [facility] Comment on above: Performed By: #### C MP, BNP, CMADM ####[facility] Uhvhrpfmzn[address] [place], [place] [address]Dr. Garima Pulliam EGFR-AF NAURUAN >60 Normal >=60 [facility] Comment on above: Performed By: #### C MP, BNP, CMADM ####[facility] X[address]apgjhpck[address] [place], [place] [address]Dr. Garima Pulliam EGFR-NON AF NAURUAN >60 Normal >=60 [facility] Comment on above: Performed By: #### C MP, BNP, CMADM ####[facility] Nflffpirne8217 [place] [address]Dr. Garima Pulliam Globulin (S) [Mass/Vol] 2.6 g/dL Normal [facility] Comment on above: Performed By: #### C MP, BNP, CMADM ####[facility] Hnbhxbnwua5392 [place] [address]Dr. Garima Pulliam Glucose [Mass/Vol] 103 mg/dL Normal 74-106 [facility] Comment on above: Performed By: #### C MP, BNP, CMADM ####[facility] Jsxvqjkmcf1342 [place] [address]Dr. Garima Pulliam Potassium [Moles/Vol] 3.8 mmol/L Normal 3.5-5.1 [facility] Comment on above: Performed By: #### C MP, BNP, CMADM ####[facility] Haamwwydsd7251 [place] [address]Dr. Garima Pulliam Protein [Mass/Vol] 6.4 g/dL Normal 6.4-8.2 [facility] Comment on above: Performed By: #### C MP, BNP, CMADM ####[facility] Frtjukgzcu9551 [place] [address]Dr. Garima Pulliam Sodium [Moles/Vol] 139 mmol/L Normal 136-145 [facility] Comment on above: Performed By: #### C MP, BNP, CMADM ####[facility] Zmxhghwtud0784 [place] [address]Dr. Garima Pulliam Urea nitrogen [Mass/Vol] 7.0 mg/dL Normal 7.0-18.0 [facility] Comment on above: Performed By: #### C MP, BNP, CMADM ####[facility] Nhwvmeakwv7405 [place] [address]Dr. Garima Pulliam Urea nitrogen/Creatinine [Mass ratio] 11.1 mg/mg Normal [facility] Comment on above: Performed By: #### C MP, BNP, CMADM ####[facility] Wnutyjifzi9726 [place] [address]Dr. Gairma Pulliam PROTIMEon 09-29-2022 INR Coag (PPP) [Relative time] 1.14 {INR} Normal [facility] Comment on above: Performed By: #### P T, PTT ####[facility] Qdijyjqyec[address] [place], [place] [address]Dr. Garima Pulliam INR GUIDELINES SEE BELOW Normal [facility] Comment on above: Result Comment: WESLEY RED INR: 2.0 - 3.0 CONDITIONS NOT LISTED BELOW 2.5 - 3.5 FOR PROSTHETIC HEART VALVE REPLACEMENT 2.5 - 3.5 RECURRENT THROMBOSIS Performed By: #### P T, PTT ####[facility] Iwnsltjcbk[address] [place], [place] [address]Dr. Gairma Pulliam PT Coag (PPP) [Time] 12.2 s Critically high 9.0-11.6 [facility] Comment on above: Performed By: #### P T, PTT ####[facility] Gsiyefbrst[address] [place], [place] [address]Dr. Garima Pulliam PTTon 09-29-2022 aPTT Coag (Bld) [Time] 29.3 s Normal 22.3-36.2 [facility] Comment on above: Performed By: #### P T, PTT ####[facility] Rrckwcokcd[address] [place], [place] [address]Dr. Garima Pulliam XR CHEST 1 Von 09-29-2022 XR CHEST 1 V Normal [facility] CBC AUTO DIFFon 09-26-2022 BASO # 0.0 103/ul Normal 0.0-0.1 [facility] Comment on above: Performed By: #### C BC ####[facility] Oworkpqsbj[address] [place], [place] [address]Dr. Garima Pulliam Basophils/100 WBC (Bld) 0.2 % Normal 0.2-2.0 [facility] Comment on above: Performed By: #### C BC ####[facility] Shdwbharyf[address] [place], [place] [address]Dr. Garima Pulliam EO # 0.1 103/ul Normal 0.0-0.7 [facility] Comment on above: Performed By: #### C BC ####[facility] Viaskxmvzz[address] [place], [place] [address]Dr. Garima Pulliam Eosinophils/100 WBC (Bld) 1.0 % Normal 0.9-7.0 [facility] Comment on above: Performed By: #### C BC ####[facility] Axathwtlrh[address] [place], [place] [address]Dr. Garima Pulliam Erythrocyte distribution width (RBC) [Ratio] 13.4 % Normal 11.0-15.0 [facility] Comment on above: Performed By: #### C BC ####[facility] Tlomzdaarc[address] [place], [place] [address]Dr. Garima Pulliam Hematocrit (Bld) [Volume fraction] 46.3 % Normal 42.0-54.0 [facility] Comment on above: Performed By: #### C BC ####[facility] Oqjhhiangq[address] [place], [place] [address]Dr. Garima Pulliam Hemoglobin (Bld) [Mass/Vol] 15.3 g/dL Normal 14.0-18.0 [facility] Comment on above: Performed By: #### C BC ####[facility] Itspvneksf64[address] [place], [place] [address]Dr. Garima Pulliam IG # 0.05 10e3/ul Critically high 0.00-0.03 [facility] Comment on above: Performed By: #### C BC ####[facility] Rvhzrsrtoo18[address] [place], [place] [address]Dr. Garima Pulliam IG % 0.4 % Normal 0.0-0.5 [facility] Comment on above: Performed By: #### C BC ####[facility] Qnoekikauw[address] [place], [place] [address]Dr. Garima Pulliam LYMPH # 1.7 103/ul Normal 1.2-3.8 [facility] Comment on above: Performed By: #### C BC ####[facility] Jhkojfnhhz[address] [place], [place] [address]Dr. Garima Pulliam Lymphocytes/100 WBC (Bld) 12.7 % Critically low 20.5-60.0 [facility] Comment on above: Performed By: #### C BC ####[facility] Exendqfkdd0211 [place] [address]DrAdalberto Pulliam MANUAL DIFF REQ NO Normal [facility] Comment on above: Performed By: #### C BC ####[facility] Okkdottldt5533 [place] [address]Dr. Garima Pulliam MCH (RBC) [Entitic mass] 30.1 pg Normal 25.9-34.0 [facility] Comment on above: Performed By: #### C BC ####[facility] [address]ecdpdsyth[address] [place], [place] [address]Dr. Garima Pulliam MCHC (RBC) [Mass/Vol] 33.0 g/dL Normal 29.9-35.2 [facility] Comment on above: Performed By: #### C BC ####[facility] M[address]btrkwdt[address] [place], [place] [address]DrAdalberto Pulliam MCV (RBC) [Entitic vol] 91.1 fL Normal 80.0-94.0 [facility] Comment on above: Performed By: #### C BC ####[facility] Yklvdmazrl[address] [place], [place] [address]DrAdalberto Pulliam MONO # 0.9 103/ul Critically high 0.3-0.8 [facility] Comment on above: Performed By: #### C BC ####[facility] Cwsgdinrwg[address] [place], [place] [address]DrAdalberto Pulliam Monocytes/100 WBC (Bld) 7.0 % Normal 1.7-12.0 [facility] Comment on above: Performed By: #### C BC ####[facility] Oksnxfinzo[address] [place], [place] [address]DrAdalberto Pulliam NEUT # 10.4 103/ul Critically high 1.4-6.5 [facility] Comment on above: Performed By: #### C BC ####[facility] H[address]gygkscvt[address] [place], [place] [address]DrAdalberto Pulliam Neutrophils/100 WBC (Bld) 78.7 % Critically high 43.0-75.0 [facility] Comment on above: Performed By: #### C BC ####[facility] Ghjnjvsdnn6640 [place] [address]Dr. Garima Pulliam Platelet mean volume (Bld) [Entitic vol] 8.9 fL Critically low 9.5-13.5 [facility] Comment on above: Performed By: #### C BC ####[facility] Eerqtpxpyt4331 [place] [address]Dr. Garima Pulliam PLT 195 103/ul Normal 150-450 [facility] [facility] Comment on above: Performed By: #### C BC ####[facility] Tcqoenydkl[address] [place], [place] [address]Dr. Garima Pulliam RBC 5.08 106/ul Normal 4.70-6.10 [facility] Comment on above: Performed By: #### C BC ####[facility] Uvfxwjyawx[address] [place], [place] [address]Dr. Garima Pulliam WBC 13.2 103/ul Critically high 4.0-11.0 [facility] Comment on above: Performed By: #### C BC ####[facility] Lwdclkhmmf[address] [place], [place] [address]Dr. Garima Pulliam PROF 14(COMP METB)on 022 Albumin [Mass/Vol] 3.5 g/dL Normal 3.4-5.0 [facility] Comment on above: Performed By: #### C DAVID HSTROPN ####[facility] Sbeadk[address]wq[address] [place] [address]Dr. Garima Pulliam Albumin/Globulin [Mass ratio] 1.2 {ratio} Normal [facility] Comment on above: Performed By: #### C RAFAT HERNANDEZTROPN ####[facility] Tlnssidyoy40[address] [place] [address]Dr. Garima Pulliam ALP [Catalytic activity/Vol] 71 U/L Normal 46-116 [facility] Comment on above: Performed By: #### C DAVID HSTROPN ####[facility] Ppuaagdvej9330 [place] [address]Dr. Garima Pulliam ALT [Catalytic activity/Vol] 37 U/L Normal 16-63 [facility] Comment on above: Performed By: #### C DAVID, HSTROPN ####[facility] Cfzduvkbiz49[address] [place] [address]Dr. Garima Pulliam Anion gap [Moles/Vol] 4.8 mmol/L Normal [facility] Comment on above: Performed By: #### C DAVID, HSTROPN ####[facility] Ydyaqhuslc[address] [place], [place] [address]Dr. Garima Pulliam AST [Catalytic activity/Vol] 21 U/L Normal 15-37 [facility] Comment on above: Performed By: #### C DAVID, HSTROPN ####[facility] Ligpugncpe[address] [place], [place] [address]Dr. Garima Pulliam Bilirubin [Mass/Vol] 0.3 mg/dL Normal 0.2-1.0 [facility] Comment on above: Performed By: #### C DAVID, HSTROPN ####[facility] Ohzgscigmd0[address] [place] [address]Dr. Garima Pulliam Calcium [Mass/Vol] 8.9 mg/dL Normal 8.5-10.1 [facility] Comment on above: Performed By: #### C DAVID, HSTROPN ####[facility] Rrqlngkxsa7224 [place] [address]Dr. Garima Pulliam Chloride [Moles/Vol] 106 mmol/L Normal 98-107 [facility] Comment on above: Performed By: #### C DAVID, HSTROPN ####[facility] Vydhapwbsx2075 [place] [address]Dr. Garima Pulliam CO2 [Moles/Vol] 29.8 mmol/L Normal 21.0-32.0 [facility] Comment on above: Performed By: #### C DAVID, HSTROPN ####[facility] Xlbikdlyqi4207 [place] [address]Dr. Garima Pulliam Creatinine [Mass/Vol] 0.68 mg/dL Critically low 0.70-1.30 [facility] Comment on above: Performed By: #### C MP, HSTROPN ####[facility] Luocxmdtyk6[address] [place] [address]Dr. Garima Pulliam EGFR-AF NAURUAN >60 Normal >=60 [facility] Comment on above: Performed By: #### C MP, HSTROPN ####[facility] Eojlxcoyhk6742 [place] [address]Dr. Chapislan Pulliam EGFR-NON AF NAURUAN >60 Normal >=60 [facility] Comment on above: Performed By: #### C MP, HSTROPN ####[facility] Yhzbfjdzox5107 [place] [address]Dr. Garima Pulliam Globulin (S) [Mass/Vol] 2.8 g/dL Normal [facility] Comment on above: Performed By: #### C MP, HSTROPN ####[facility] Cdpexjxokp0861 [place] [address]Dr. Garima Pulliam Glucose [Mass/Vol] 133 mg/dL Critically high 74-106 [place] Comment on above: Performed By: #### C MP, HSTROPN ####[facility] Kukjwqwyet4753 [place] [address]Dr. Chapisrenu Pulliam Potassium [Moles/Vol] 3.6 mmol/L Normal 3.5-5.1 [facility] Comment on above: Performed By: #### C MP, HSTROPN ####[facility] Yvqjltrglq7475 [place] [address]Dr. Chapisrenu Pulliam Protein [Mass/Vol] 6.3 g/dL Critically low 6.4-8.2 [facility] Comment on above: Performed By: #### C MP, HSTROPN ####[facility] Zrkwisqueh[address] [place], [place] [address]Dr. Chapisrenu Pulliam Sodium [Moles/Vol] 137 mmol/L Normal 136-145 [facility] Comment on above: Performed By: #### C MP, HSTROPN ####[facility] Xylvbrrtrd[address] [place], [place] [address]Dr. Garima Pulliam Urea nitrogen [Mass/Vol] 15.0 mg/dL Normal 7.0-18.0 [facility] Comment on above: Performed By: #### C DAVID HSTROPN ####[facility] Mmycirqpzf7176 [place] [address]Dr. Chapisrenu Pulliam Urea nitrogen/Creatinine [Mass ratio] 22.1 mg/mg Normal [facility] Comment on above: Performed By: #### C DAVID HSTROPN ####[facility] Jqqybbblay7651 [place] [address]Dr. Graima Heraclio TROPONIN, HIGH SENSITIVITYon 09-26-2022 HSTROP 12.8 pg/mL Normal 4.0-76.1 [facility] Comment on above: Result Comment: CUT- OFF POINTS HAVE BEEN ESTABLISHED BASED ON THE FOURTH UNIVERSAL DEFINITIONS OF MYOCARDIALINFARCTION. THE UPPER REFERENCE LIMIT (URL) OF TROPONIN, DEFINED THE 99TH PERCENTILE OFcTnI DISTRIBUTION IN A REFERENCE POPULATION, HAS BEEN CONFIRMED THE DECISION THRESHOLDFOR ME DIAGNOSIS. Performed By: #### C DAVID HSTROPN ####[facility] Ezdchyklrq2306 [place] [address]Dr. Chapisrenu Pulliam XR CHEST 1 Von 09-26-2022 XR CHEST 1 V Normal [facility] XR CHEST 1 Von 09-16-2022 XR CHEST 1 V Normal [facility] CBC AUTO DIFFon 09-15-2022 BASO # 0.0 103/ul Normal 0.0-0.1 [facility] Comment on above: Performed By: #### C BC ####[facility] Jsirpxallw0594 [place] [address]Dr. Garima Heraclio Basophils/100 WBC (Bld) 0.1 % Critically low 0.2-2.0 [facility] Comment on above: Performed By: #### C BC ####[facility] Fiylqsbujz9142 [place] [address]Dr. Garima Pulliam EO # 0.0 103/ul Normal 0.0-0.7 [facility] Comment on above: Performed By: #### C BC ####[facility] Dbttgjskvv6465 [place] [address]Dr. Garima Pulliam Eosinophils/100 WBC (Bld) 0.1 % Critically low 0.9-7.0 [facility] Comment on above: Performed By: #### C BC ####[facility] Agobigjixb7546 [place] [address]Dr. Garima Pulliam Erythrocyte distribution width (RBC) [Ratio] 14.1 % Normal 11.0-15.0 [facility] Comment on above: Performed By: #### C BC ####[facility] Czgohkvpys[address] [place], [place] [address]Dr. Garima Pulliam Hematocrit (Bld) [Volume fraction] 46.1 % Normal 42.0-54.0 [facility] Comment on above: Performed By: #### C BC ####[facility] Jhmhyooktw[address] [place], [place] [address]Dr. Garima Pulliam Hemoglobin (Bld) [Mass/Vol] 15.0 g/dL Normal 14.0-18.0 [facility] Comment on above: Performed By: #### C BC ####[facility] Voyxvgqeft006[address] [place], [place] [address]Dr. Garima Pulliam IG # 0.03 10e3/ul Normal 0.00-0.03 [facility] Comment on above: Performed By: #### C BC ####[facility] Fwknhudtrk[address] [place], [place] [address]Dr. Garima Pulliam IG % 0.3 % Normal 0.0-0.5 [facility] Comment on above: Performed By: #### C BC ####[facility] Qyukdremuo[address] [place], [place] [address]Dr. Garima Pulliam LYMPH # 0.6 103/ul Critically low 1.2-3.8 The [facility] Comment on above: Performed By: #### C BC ####[facility] Omkuytqdaw199[address] [place], [place] [address]Dr. Garima Pulliam Lymphocytes/100 WBC (Bld) 5.8 % Critically low 20.5-60.0 [facility] Comment on above: Performed By: #### C BC ####[facility] Adjeorqwov[address] [place] [phone]. Garima Pulliam MANUAL DIFF REQ NO Normal [facility] Comment on above: Performed By: #### C BC ####[facility] Itcozcrqje5590 [place] [phone]. Garima Pulliam MCH (RBC) [Entitic mass] 30.2 pg Normal 25.9-34.0 [facility] Comment on above: Performed By: #### C BC ####[facility] Dfdppdhcig8657 [place] [address]Dr. Garima Pulliam MCHC (RBC) [Mass/Vol] 32.5 g/dL Normal 29.9-35.2 [facility] Comment on above: Performed By: #### C BC ####[facility] Anzfxugbbi2413 [place] [address]Dr. Garima Pulliam MCV (RBC) [Entitic vol] 92.8 fL Normal 80.0-94.0 [facility] Comment on above: Performed By: #### C BC ####[facility] Zoxjrtyxch0850 [place] [address]Dr. Garima Heraclio MONO # 0.3 103/ul Normal 0.3-0.8 [facility] Comment on above: Performed By: #### C BC ####[facility] Ncoqpkehzy0435 [place] [phone]. Garima Heraclio Monocytes/100 WBC (Bld) 3.2 % Normal 1.7-12.0 [facility] Comment on above: Performed By: #### C BC ####[facility] Eqaynukulr0239 [place] [phone]. Garima Pulliam NEUT # 9.8 103/ul Critically high 1.4-6.5 [facility] Comment on above: Performed By: #### C BC ####[facility] Hkheidzksn4873 [place] [phone]. Garima Pulliam Neutrophils/100 WBC (Bld) 90.5 % Critically high 43.0-75.0 [facility] Comment on above: Performed By: #### C BC ####[facility] Buzgkpmezu4317 [place] [phone]. Garima Pulliam Platelet mean volume (Bld) [Entitic vol] 9.4 fL Critically low 9.5-13.5 [facility] Comment on above: Performed By: #### C BC ####[facility] Ptnlbofprt4599 [place] [phone]. Garima Pulliam PLT 208 103/ul Normal 150-450 [facility] Comment on above: Performed By: #### C BC ####[facility] Xmvipnjbxl3858 [place] [address]Dr. Garima Pulliam RBC 4.97 106/ul Normal 4.70-6.10 [facility] Comment on above: Performed By: #### C BC ####[facility] Ceqpzzbvfb2430 [place] [address]Dr. Garima Pulliam WBC 10.8 103/ul Normal 4.0-11.0 [facility] Comment on above: Performed By: #### C BC ####[facility] Urvszbzzzu8745 [place] [address]Dr. Garima Pulliam PROF 14(COMP METB)on 022 Albumin [Mass/Vol] 4.0 g/dL Normal 3.4-5.0 [facility] Comment on above: Performed By: #### C MP ####[facility] Btqowiueqz6433 [place] [address]Dr. Garima Pulliam Albumin/Globulin [Mass ratio] 1.5 {ratio} Normal [facility] Comment on above: Performed By: #### C MP ####[facility] Xkeoiuuecr1035 [place] [address]Dr. Garima Pulliam ALP [Catalytic activity/Vol] 73 U/L Normal 46-116 [facility] Comment on above: Performed By: #### C MP ####[facility] Xjxewdtbjp9911 [place] [address]Dr. Garima Pulliam ALT [Catalytic activity/Vol] 42 U/L Normal 16-63 [facility] Comment on above: Performed By: #### C MP ####[facility] Mfscddacyz4137 [place] [address]Dr. Garima Pulliam Anion gap [Moles/Vol] 9.1 mmol/L Normal [facility] Comment on above: Performed By: #### C MP ####[facility] Guvucqbmtl[address] [place], [place] [address]Dr. Garima Pulliam AST [Catalytic activity/Vol] 28 U/L Normal 15-37 [facility] Comment on above: Performed By: #### C MP ####[facility] Ulpvvudlxa[address] [place], [place] [address]Dr. Garima Pulliam Bilirubin [Mass/Vol] 0.6 mg/dL Normal 0.2-1.0 [facility] Comment on above: Performed By: #### C MP ####[facility] Ttrczrewqv[address] [place], [place] [address]Dr. Garima Pulliam Calcium [Mass/Vol] 8.6 mg/dL Normal 8.5-10.1 [facility] Comment on above: Performed By: #### C MP ####[facility] Ntgsxfsrnd[address] [place], [place] [address]Dr. Garima Pulliam Chloride [Moles/Vol] 105 mmol/L Normal 98-107 [facility] Comment on above: Performed By: #### C MP ####[facility] Oskqbtzwzw[address] [place], [place] [address]Dr. Garima Pulliam CO2 [Moles/Vol] 28.5 mmol/L Normal 21.0-32.0 [facility] Comment on above: Performed By: #### C MP ####[facility] Qjirptoihe119[address] [place], [place] [address]Dr. Garima Heraclio Creatinine [Mass/Vol] 0.78 mg/dL Normal 0.70-1.30 [facility] Comment on above: Performed By: #### C MP ####[facility] Aviphxfzxa440[address] [place], [place] [address]Dr. Chapisrenu Heraclio EGFR-AF NAURUAN >60 Normal >=60 [facility] Comment on above: Performed By: #### C MP ####[facility] Gnfsiifmbx636[address] [place], [place] [address]Dr. Garima Pulliam EGFR-NON AF NAURUAN >60 Normal >=60 [facility] Comment on above: Performed By: #### C MP ####[facility] Skgghztsvw8618 [place] [address]Dr. Garima Pulliam Globulin (S) [Mass/Vol] 2.7 g/dL Normal [facility] Comment on above: Performed By: #### C MP ####[facility] Mmtwdrbxag8041 [place] [address]Dr. Garima Pulliam Glucose [Mass/Vol] 220 mg/dL Critically high 74-106 [facility] Comment on above: Performed By: #### C MP ####[facility] Gvhkjfmwty8887 [place] [address]Dr. Garima Pulliam Potassium [Moles/Vol] 3.6 mmol/L Normal 3.5-5.1 [facility] Comment on above: Performed By: #### C MP ####[facility] Prjjyjhbsm[address] [place], [place] [address]Dr. Garima Pulliam Protein [Mass/Vol] 6.7 g/dL Normal 6.4-8.2 [facility] Comment on above: Performed By: #### C MP ####[facility] Lhvitgouvl476[address] [place], [place] [address]Dr. Garima Pulliam Sodium [Moles/Vol] 139 mmol/L Normal 136-145 [facility] Comment on above: Performed By: #### C MP ####[facility] Dqorfqedco175[address] [place], [place] [address]Dr. Garima Pulliam Urea nitrogen [Mass/Vol] 11.0 mg/dL Normal 7.0-18.0 [facility] Comment on above: Performed By: #### C MP ####[facility] Uouetfgumm[address] [place], [place] [address]Dr. Garima Pulliam Urea nitrogen/Creatinine [Mass ratio] 14.1 mg/mg Normal [facility] Comment on above: Performed By: #### C MP ####[facility] Meyhyvqsmy[address] [place], [place] [address]Dr. Garima Pulliam CARDIAC NASH 3-6on 2 CK [Catalytic activity/Vol] 240 U/L Normal 39-308 [facility] Comment on above: Performed By: #### C MREP ####[facility] Ngslpvnwij6329 [place] [address]Dr. Garima Pulliam CK.MB [Mass/Vol] 10.38 ng/mL Critically high <=3.60 [facility] Comment on above: Performed By: #### C MREP ####[facility] Onewcrfeae0491 [place] [address]Dr. Garima Pulliam HSTROP 18.5 pg/mL Normal 4.0-76.1 [facility] Comment on above: Result Comment: CUT- OFF POINTS HAVE BEEN ESTABLISHED BASED ON THE FOURTH UNIVERSAL DEFINITIONS OF MYOCARDIALINFARCTION. THE UPPER REFERENCE LIMIT (URL) OF TROPONIN, DEFINED THE 99TH PERCENTILE OFcTnI DISTRIBUTION IN A REFERENCE POPULATION, HAS BEEN CONFIRMED THE DECISION THRESHOLDFOR ME DIAGNOSIS. Performed By: #### C MREP ####[facility] Hwwkdmcinm4830 [place] [address]Dr. Garima Pulliam CK [Catalytic activity/Vol] 257 U/L Normal 39-308 [facility] Comment on above: Performed By: #### C MREP ####[facility] Ffpdxkbvkc[address] [place], [place] [address]Dr. Garima Pulliam CK.MB [Mass/Vol] 9.89 ng/mL Critically high <=3.60 [facility] Comment on above: Performed By: #### C MREP ####[facility] Yykxdhovcg126[address] [place], [place] [address]Dr. Garima Pulliam HSTROP 16.9 pg/mL Normal 4.0-76.1 [facility] Comment on above: Result Comment: CUT- OFF POINTS HAVE BEEN ESTABLISHED BASED ON THE FOURTH UNIVERSAL DEFINITIONS OF MYOCARDIALINFARCTION. THE UPPER REFERENCE LIMIT (URL) OF TROPONIN, DEFINED THE 99TH PERCENTILE OFcTnI DISTRIBUTION IN A REFERENCE POPULATION, HAS BEEN CONFIRMED THE DECISION THRESHOLDFOR ME DIAGNOSIS. Performed By: #### C MREP ####[facility] Partkrjabd2205 [place] [address]Dr. Garima Heraclio CBC AUTO DIFFon 10-22-2022 BASO # 0.0 103/ul Normal 0.0-0.1 [facility] Comment on above: Performed By: #### C BC ####[facility] Bjqiuwgrrt3226 [place] [phone]. Garima Pulliam Basophils/100 WBC (Bld) 0.1 % Critically low 0.2-2.0 [facility] Comment on above: Performed By: #### C BC ####[facility] Fgnkidzbwy8777 [place] [address]Dr. Garima Pulliam EO # 0.0 103/ul Normal 0.0-0.7 [facility] Comment on above: Performed By: #### C BC ####[facility] Ebgqlipdyo[address] [place], [place] [address]Dr. Chapisrenu Heraclio Eosinophils/100 WBC (Bld) 0.0 % Critically low 0.9-7.0 [facility] Comment on above: Performed By: #### C BC ####[facility] Nkermkawxb958[address] [place], [place] [address]Dr. Garima Pulliam Erythrocyte distribution width (RBC) [Ratio] 13.6 % Normal 11.0-15.0 [facility] Comment on above: Performed By: #### C BC ####[facility] Eenmphzmzz[address] [place], [place] [address]Dr. Garima Pulliam Hematocrit (Bld) [Volume fraction] 48.2 % Normal 42.0-54.0 [facility] Comment on above: Performed By: #### C BC ####[facility] Bsrcbsuxbz[address] [place], [place] [address]Dr. Garima Pulliam Hemoglobin (Bld) [Mass/Vol] 16.0 g/dL Normal 14.0-18.0 [facility] Comment on above: Performed By: #### C BC ####[facility] Nuoafisxuv[address] [place], [place] [address]Dr. Chapisrenu Heraclio IG # 0.02 10e3/ul Normal 0.00-0.03 [facility] Comment on above: Performed By: #### C BC ####[facility] Tulbliwgej5546 [place] [phone]. Garima Pulliam IG % 0.3 % Normal 0.0-0.5 [facility] Comment on above: Performed By: #### C BC ####[facility] Bkazxwcwry7306 [place] [address]Dr. Garima Heraclio LYMPH # 0.5 103/ul Critically low 1.2-3.8 [facility] Comment on above: Performed By: #### C BC ####[facility] Rrejzoisxm1057 [place] [address]Dr. Garima Heraclio Lymphocytes/100 WBC (Bld) 7.7 % Critically low 20.5-60.0 [facility] Comment on above: Performed By: #### C BC ####[facility] Bdcwceuflq[address] [place], [place] [address]Dr. Chapisrenu Pulliam MANUAL DIFF REQ NO Normal [facility] Comment on above: Performed By: #### C BC ####[facility] Gkfffwfqkq14[address] [place], [place] [address]Dr. Garima Heraclio MCH (RBC) [Entitic mass] 30.6 pg Normal 25.9-34.0 [facility] Comment on above: Performed By: #### C BC ####[facility] Kdhderliic[address] [place], [place] [address]Dr. Garima Pulliam MCHC (RBC) [Mass/Vol] 33.2 g/dL Normal 29.9-35.2 [facility] Comment on above: Performed By: #### C BC ####[facility] Kloupkbcjn209[address] [place], [place] [address]Dr. Garima Heraclio MCV (RBC) [Entitic vol] 92.2 fL Normal 80.0-94.0 [facility] Comment on above: Performed By: #### C BC ####[facility] Lzumbvdviq[address] [place], [place] [address]Dr. Garima Pulliam MONO # 0.0 103/ul Critically low 0.3-0.8 [facility] Comment on above: Performed By: #### C BC ####[facility] Drcjtdopqz0341 [place] [phone]. Garima Pulliam Monocytes/100 WBC (Bld) 0.4 % Critically low 1.7-12.0 [facility] Comment on above: Performed By: #### C BC ####[facility] Iyfrsgtjhu9809 [place] [phone]. Garima Pulliam NEUT # 6.2 103/ul Normal 1.4-6.5 [facility] Comment on above: Performed By: #### C BC ####[facility] Vapaxsgiuk8546 [place] [address]Dr. Garima Pulliam Neutrophils/100 WBC (Bld) 91.5 % Critically high 43.0-75.0 [facility] Comment on above: Performed By: #### C BC ####[facility] Ifkpynecwd[address] [place] [address]Dr. Garima Pulliam Platelet mean volume (Bld) [Entitic vol] 8.7 fL Critically low 9.5-13.5 [facility] Comment on above: Performed By: #### C BC ####[facility] Cfqdbsbxxs85[address] [place] [address]Dr. Garima Pulliam PLT 179 103/ul Normal 150-450 [facility] Comment on above: Performed By: #### C BC ####[facility] Olndvjdybc58[address] [place] [phone]. Garima Pulliam RBC 5.23 106/ul Normal 4.70-6.10 [facility] Comment on above: Performed By: #### C BC ####[facility] Xsxfusovai8498 [place] [address]Dr. Garima Pulliam WBC 6.7 103/ul Normal 4.0-11.0 [facility] Comment on above: Performed By: #### C BC ####[facility] Tysrfvpfpi54[address] [place] [address]Dr. Garima Pulliam PROF CHEM 8 (BAS METB)on Anion gap [Moles/Vol] 12.1 mmol/L Normal [facility] Comment on above: Performed By: #### B MP ####[facility] Eqvhopjzot2[address] [place] [phone]. Garima Pulliam Calcium [Mass/Vol] 8.7 mg/dL Normal 8.5-10.1 The [facility] Comment on above: Performed By: #### B MP ####[facility] Ubfjnjmrlx37[address] [place] [phone]. Garima Pulliam Chloride [Moles/Vol] 105 mmol/L Normal 98-107 [facility] Comment on above: Performed By: #### B MP ####[facility] Aqzwxipyek6067 [place] [phone]. Garima Pulliam CO2 [Moles/Vol] 25.5 mmol/L Normal 21.0-32.0 The [facility] Comment on above: Performed By: #### B MP ####[facility] Phhcwxnonc6507 [place] [address]Dr. Garima Pulliam Creatinine [Mass/Vol] 0.63 mg/dL Critically low 0.70-1.30 [facility] Comment on above: Performed By: #### B MP ####[facility] Llsxpetkch2463 [place] [address]Dr. Garima Pulliam EGFR-AF NAURUAN >60 Normal >=60 [facility] Comment on above: Performed By: #### B MP ####[facility] Hecurxtark2428 [place] [address]Dr. Garima Pulliam EGFR-NON AF NAURUAN >60 Normal >=60 [facility] Comment on above: Performed By: #### B MP ####[facility] Vgajwfnyge4537 [place] [address]Dr. Garima Pulliam Glucose [Mass/Vol] 162 mg/dL Critically high 74-106 [place] Comment on above: Performed By: #### B MP ####[facility] Mag[address] [place], [place] [address]Dr. Garima Pulliam Potassium [Moles/Vol] 3.6 mmol/L Normal 3.5-5.1 [facility] Comment on above: Performed By: #### B MP ####[facility] [address] [place], [place] [address]Dr. Garima Pulliam Sodium [Moles/Vol] 139 mmol/L Normal 136-145 [facility] Comment on above: Performed By: #### B DAVID ####[facility] Lljjqhtfta4087 [place] [address]Dr. Garima Pulliam Urea nitrogen [Mass/Vol] 9.0 mg/dL Normal 7.0-18.0 [facility] Comment on above: Performed By: #### B DAVID ####[facility] Jigxbqnycf4003 [place] [address]Dr. Garima Pulliam Urea nitrogen/Creatinine [Mass ratio] 14.3 mg/mg Normal [facility] Comment on above: Performed By: #### B DAVID ####[facility] Kgcjaedksh0455 [place] [address]Dr. Chapisrenu Pulliam CARDIAC NASH ADMITon 09-12- 022 CK [Catalytic activity/Vol] 304 U/L Normal 39-308 [facility] Comment on above: Performed By: #### B NANCY HERNANDEZ ####[facility] Fvzjzkygyg37[address] [place] [address]Dr. Garima Pulliam CK.MB [Mass/Vol] 11.81 ng/mL Critically high <=3.60 Th [facility] Comment on above: Performed By: #### B NANCY HERNANDEZ ####[facility] Ednfpxvhag45[address] [place] [address]Dr. Garima Heraclio HSTROP 13.3 pg/mL Normal 4.0-76.1 [facility] Comment on above: Result Comment: CUT- OFF POINTS HAVE BEEN ESTABLISHED BASED ON THE FOURTH UNIVERSAL DEFINITIONS OF MYOCARDIALINFARCTION. THE UPPER REFERENCE LIMIT (URL) OF TROPONIN, DEFINED THE 99TH PERCENTILE OFcTnI DISTRIBUTION IN A REFERENCE POPULATION, HAS BEEN CONFIRMED THE DECISION THRESHOLDFOR ME DIAGNOSIS. Performed By: #### B ANNCY HERNANDEZ ####[facility] Lvlbldfjem1570 [place] [address]Dr. Garima Pulliam DORIS 133 ng/mL Critically high 16-96 [facility] Comment on above: Performed By: #### B NANCY HERNANDEZ ####[facility] Ovytajmlip4273 [place] [address]Dr. Garima Pulliam CBC AUTO DIFFon 09-12-2022 BASO # 0.0 103/ul Normal 0.0-0.1 [facility] Comment on above: Performed By: #### C BC ####[facility] [address] [place], [place] [phone]. Garima Heraclio Basophils/100 WBC (Bld) 0.2 % Normal 0.2-2.0 [facility] Comment on above: Performed By: #### C BC ####[facility] G[address] [place], [place] [address]Dr. Garima Heraclio EO # 0.2 103/ul Normal 0.0-0.7 [facility] Comment on above: Performed By: #### C BC ####[facility] Axxqykainj[address] [place], [place] [address]Dr. Chapisrenu Pulliam Eosinophils/100 WBC (Bld) 1.3 % Normal 0.9-7.0 [facility] Comment on above: Performed By: #### C BC ####[facility] Cghwgnpdgi[address] [place], [place] [address]Dr. Garima Pulliam Erythrocyte distribution width (RBC) [Ratio] 13.7 % Normal 11.0-15.0 [facility] Comment on above: Performed By: #### C BC ####[facility] [address]arqw[address] [place], [place] [address]Dr. Garima Pulliam Hematocrit (Bld) [Volume fraction] 46.4 % Normal 42.0-54.0 [facility] Comment on above: Performed By: #### C BC ####[facility] [address] [place], [place] [address]Dr. Garima Pulliam Hemoglobin (Bld) [Mass/Vol] 15.7 g/dL Normal 14.0-18.0 [facility] Comment on above: Performed By: #### C BC ####[facility] Fac[address]vivysz[address] [place], [place] [address]Dr. Garima Pulliam IG # 0.04 10e3/ul Critically high 0.00-0.03 [facility] Comment on above: Performed By: #### C BC ####[facility] Qgtzfjsall2645 [place] [phone]. Garima Pulliam IG % 0.3 % Normal 0.0-0.5 [facility] Comment on above: Performed By: #### C BC ####[facility] Hbiapiswxl4271 [place] [phone]. Garima Pulliam LYMPH # 1.7 103/ul Normal 1.2-3.8 [facility] Comment on above: Performed By: #### C BC ####[facility] Grnsnzlrae0864 [place] [phone]. Garima Pulliam Lymphocytes/100 WBC (Bld) 11.5 % Critically low 20.5-60.0 [facility] Comment on above: Performed By: #### C BC ####[facility] Dwrdvzggji1826 [place] [phone]. Garima Pulliam MANUAL DIFF REQ NO Normal [facility] Comment on above: Performed By: #### C BC ####[facility] Iligccljlr0932 [place] [phone]. Garima Pulliam MCH (RBC) [Entitic mass] 31.0 pg Normal 25.9-34.0 [facility] Comment on above: Performed By: #### C BC ####[facility] Yiehfqmhhe6723 [place] [phone]. Garima Pulliam MCHC (RBC) [Mass/Vol] 33.8 g/dL Normal 29.9-35.2 [facility] Comment on above: Performed By: #### C BC ####[facility] Kijgqqydwv83[address] [place] [phone]. Garima Pulliam MCV (RBC) [Entitic vol] 91.7 fL Normal 80.0-94.0 [facility] Comment on above: Performed By: #### C BC ####[facility] Wbzzvwtmvl6129 [place] [phone]. Garima Heraclio MONO # 0.8 103/ul Normal 0.3-0.8 [facility] Comment on above: Performed By: #### C BC ####[facility] Uadjwkyrdk8003 [place] [phone]. Garima Pulliam Monocytes/100 WBC (Bld) 5.2 % Normal 1.7-12.0 [facility] Comment on above: Performed By: #### C BC ####[facility] Tjfbhauntz5874 [place] [phone]. Garima Pulliam NEUT # 11.7 103/ul Critically high 1.4-6.5 [facility] Comment on above: Performed By: #### C BC ####[facility] Lrwgxusref6802 [place] [phone]. Garima Pulliam Neutrophils/100 WBC (Bld) 81.5 % Critically high 43.0-75.0 [facility] Comment on above: Performed By: #### C BC ####[facility] Urcusydzzv7880 [place] [address]Dr. Garima Pulliam Platelet mean volume (Bld) [Entitic vol] 8.6 fL Critically low 9.5-13.5 [facility] Comment on above: Performed By: #### C BC ####[facility] Lxvfnefxak9188 [place] [phone]. Garima Pulliam PLT 191 103/ul Normal 150-450 [facility] Comment on above: Performed By: #### C BC ####[facility] [address] [place], [place] [phone]. Garima Pulliam RBC 5.06 106/ul Normal 4.70-6.10 [facility] Comment on above: Performed By: #### C BC ####[facility] Vpylftidvn[address] [place], [place] [phone]. Garima Pulliam WBC 14.4 103/ul Critically high 4.0-11.0 [facility] Comment on above: Performed By: #### C BC ####[facility] Ltrevlkpyb[address] [place], [place] [address]Dr. Garima Pulliam Covid-19 PCR ([facility]on 08-24 SARS-CoV-2 (COVID-19) RNA MARIE+probe Ql (Unsp spec) Not detected Normal NOT DETECTED [facility] Comment on above: Result Comment: When [...] for this test is supported by the [place] of Health and Human Service's declaration that [...] be used). Performed By: #### C VDTBH ####[facility] Srknmflvtr[address] [place], [place] [address]Dr. Garima Pulliam LACTATE/LACTIC ACIDon 2021 Lactate [Moles/Vol] 1.0 mmol/L Normal 0.4-1.9 [facility] Comment on above: Performed By: #### L ACT ####[facility] Yndzgrvdvm[address] [place], [place] [address]Dr. Garima Pulliam PROF CHEM 8 (BAS METB)on Anion gap [Moles/Vol] 11.6 mmol/L Normal [facility] Comment on above: Performed By: #### B NANCY HERNANDEZ ####[facility] Frvgbgchmc3471 [place] [address]Dr. Garima Pulliam Calcium [Mass/Vol] 9.2 mg/dL Normal 8.5-10.1 [facility] Comment on above: Performed By: #### B NANCY HERNANDEZ ####[facility] Jdeofgbgwd1064 [place] [address]Dr. Garima Pulliam Chloride [Moles/Vol] 105 mmol/L Normal 98-107 [facility] Comment on above: Performed By: #### B MP, CMADM ####[facility] Wijrxdpueh0136 [place] [phone]. Garima Pulliam CO2 [Moles/Vol] 25.9 mmol/L Normal 21.0-32.0 [facility] Comment on above: Performed By: #### B DAVID, CMADM ####[facility] Mvllnuaoln7206 [place] [address]Dr. Garima Pulliam Creatinine [Mass/Vol] 0.72 mg/dL Normal 0.70-1.30 [facility] Comment on above: Performed By: #### B DAVID, CMADM ####[facility] Cyqdkfevpf6850 [place] [phone]. Garima Pulliam EGFR-AF NAURUAN >60 Normal >=60 [facility] Comment on above: Performed By: #### B DAVID, CMADM ####[facility] Sbhhlnrkqy1643 [place] [address]Dr. Chapisrenu Pulliam EGFR-NON AF NAURUAN >60 Normal >=60 [facility] Comment on above: Performed By: #### B DAVID, CMAANA ROSA ####[facility] Gtznqifoig7641 [place] [address]Dr. Garima Pulliam Glucose [Mass/Vol] 111 mg/dL Critically high 74-106 [place] Comment on above: Performed By: #### B DAVID, CMADM ####[facility] Zhstflbbjy5433 [place] [address]Dr. Chapisrenu Pulliam Potassium [Moles/Vol] 3.5 mmol/L Normal 3.5-5.1 [facility] Comment on above: Performed By: #### B DAVID, CMADM ####[facility] Ntyzfegxpa2881 [place] [address]Dr. Chapisrenu Pulliam Sodium [Moles/Vol] 139 mmol/L Normal 136-145 [facility] Comment on above: Performed By: #### B DAVID, CMADM ####[facility] Yunbjadnvi8496 [place] [address]Dr. Garima Pulliam Urea nitrogen [Mass/Vol] 7.0 mg/dL Normal 7.0-18.0 [facility] Comment on above: Performed By: #### B DAVID, CMADM ####[facility] [address] [place], [place] [address]Cx. Garima Pulliam Urea nitrogen/Creatinine [Mass ratio] 9.7 mg/mg Normal [facility] Comment on above: Performed By: #### B MP, CMADM ####[facility] Fjmvybhgcf58[address] [place], [place] [address]Sb. Garima Pulliam XR CHEST 1 Von 09-12-2022 XR CHEST 1 V Normal [facility] Encounters Encounter Date Encounter Type [...] Facility:H1 Payers Date Payer Category Payer Unknown [id number] 1960 Medicaid [id number] 1960 Unknown [id number] 1960 Unknown [id number] 1954 Unknown [id number] 2.16.84 0.1.181558.3.579.2.593 1954 Unknown [id number] 2.16.84 0.1.201590.3.579.2.593 1954 Unknown [id number] 2.16.84 0.1.881103.3.579.2.593 1954 Unknown [id number] 2.16.84 0.1.903795.3.579.2.593 1954 Unknown [id number] 2.16.84 0.1.615324.3.579.2.593 1954 Unknown [id number] 2.16.84 0.1.324402.3.579.2.593 1954 Unknown [id number] 2.16.84 0.1.324463.3.579.2.593 1954 Unknown [id number] 2.16.84 0.1.922446.3.579.2.593 1954 Unknown [id number] 2.16.84 0.1.656406.3.579.2.593 1954 Unknown [id number] 2.16.84 0.1.529541.3.579.2.593 1954 Unknown [id number] 2.16.84 0.1.365424.3.579.2.593 1954 Unknown [id number] 2.16.84 0.1.658544.3.579.2.593 1954 Unknown [id number] 2.16.84 0.1.225403.3.579.2.593 1954 Unknown [id number] 2.16.84 0.1.644356.3.579.2.593 1954 Unknown [id number] 2.16.84 0.1.837384.3.579.2.593 1954 Unknown [id number] 2.16.84 0.1.216375.3.579.2.593 1954 Unknown [id number] 2.16.84 0.1.915302.3.579.2.593 1954 Unknown [id number] 2.16.84 0.1.806584.3.579.2.593 1954 Unknown [id number] 2.16.84 0.1.062776.3.579.2.593 1954 Unknown [id number] 2.16.84 0.1.314134.3.579.2.593 Summary Purpose Family History No Family History Records Found Advance Directives No Advanced Directives Records Found Additional Source Comments (unrecognized sect ion and content) No Status Records Found INFORMATION SOURCE (unrecogn ized section and content) DATE CREATED AUTHOR 04/08/2023 The [facility] FOR RECORDS PERTAINING TO [...] THE PRIMARY CLINICAL RECORDS. [facility]. provides no warranty or guarantee of the accuracy or completeness of information in this document.
[2025-03-10 20:09] VITALS: BP 184/99; PULSE 86; TEMP 36.8; O2SAT 95; BMI 23.7
[2025-03-10 21:08] VITALS: O2SAT 95
--- NOTE | 2025-03-10 21:17 | ED.SOB1 ---
HPI - SOB/Dyspnea General Chief Complaint: Shortness of Breath/Dyspnea Stated Complaint: DIFF BREATHING Time Seen by Provider: 03/10/25 21:03 Source: patient Mode of arrival: walk-in Limitations: no limitations History of Present Illness HPI Narrative: patient well known to department. Daily smoker with COPD. States he was starting to feel short of breath and decided to come in for a breathing treatment. No chest pain or fever. Occ cough nonproductive. No abdominal pain Related Data Home Medications ?Medication ?Instructions ?Recorded ?Confirmed albuterol sulfate 90 mcg/actuation 2 inh inhalation Q6H PRN shortness 03/13/24 02/20/25 aerosol inhaler of breath or wheezing Previous Rx's ?Medication ?Instructions ?Recorded ipratropium 0.5 mg-albuterol 3 mg 3 ml inhalation Q4H PRN shortness 12/10/24 (2.5 mg base)/3 mL nebulization of breath #90 mL soln albuterol sulfate 2.5 mg/3 mL 2.5 mg (3 mL) inhalation Q6H PRN 01/24/25 (0.083 %) solution for nebulization shortness of breath or wheezing #90 mL losartan 100 mg tablet 100 mg PO DAILY #30 tabs 01/27/25 Allergies Allergy/AdvReac Type Severity Reaction Status Date / Time No Known Drug Allergies Allergy Verified 03/10/25 20:09 Review of Systems ROS Status of ROS 10 or more systems reviewed and unremarkable except as noted in history and below [facility] Medical History Hypokalemia ?E87.6 - Hypokalemia (ICD-10) New onset type 2 diabetes mellitus ?E11.9 - Type 2 diabetes mellitus without complications (ICD-10) Lower extremity edema ?R60.0 - Localized edema (ICD-10) Edema ?R60.9 - Edema, unspecified (ICD-10) Acute hyperglycemia ?R73.9 - Hyperglycemia, unspecified (ICD-10) Tobacco abuse ?Z72.0 - Tobacco use (ICD-10) HTN (hypertension) ?I10 - Essential (primary) hypertension (ICD-10) Community acquired pneumonia ?J18.9 - Pneumonia, unspecified organism (ICD-10) Chronic obstructive pulmonary disease ?J44.9 - Chronic obstructive pulmonary disease, unspecified (ICD-10) Acute exacerbation of chronic obstructive pulmonary disease (COPD) ?J44.1 - Chronic obstructive pulmonary disease with (acute) exacerbation (ICD-10) RLL pneumonia ?J18.9 - Pneumonia, unspecified organism (ICD-10) COPD (chronic obstructive pulmonary disease) ?J44.9 - Chronic obstructive pulmonary disease, unspecified (ICD-10) Surgical History Hx of tonsillectomy ?Z90.89 - Acquired absence of other organs (ICD-10) Family History Mother Family history of cancer Family history of hypertension Father Family history of cancer Social History Within the past year, how often did you have a drink containing alcohol: 4 or more times a week Within the past year, how many standard drinks containing alcohol did you have on a typical day: 3 or 4 Within the past year, how often did you have six or more drinks on one occasion: less than monthly Total score: 3 Score interpretation: A score of 4 or more indicates drinking is likely to affect patient's safety. Smoking status: Current every day smoker Non-prescribed substance use: cannabis (any form) Previous occupational history: retired Highest level of school completed/degree received: high school graduate Are you now , , , , never or living with a partner: In a typical week, how many times do you talk on the telephone with family, friends, or neighbors: twice per week How often do you get together with friends or relatives: once per week How often do you attend islam or latter day services: never Do you belong to any clubs or organizations such as islam groups unions, fraternal or athletic groups, or school groups: no Total score: 1 Score interpretation: A score of less than or equal to 1 indicates the most socially isolated. Little interest or pleasure in doing things: not at all Feeling down, depressed, or hopeless: not at all Feel stressed/tense/nervous/anxious/difficulty sleeping: not at all Do you think of yourself as: straight/heterosexual Gender Identity: male Exam Constitutional Vital Signs, click to edit/add: Last Vital Signs Temp 98.2 F 03/10/25 20:09 Pulse 66 03/10/25 21:43 Resp 18 03/10/25 21:43 BP 184/99 H 03/10/25 20:09 Pulse Ox 95 03/10/25 21:43 O2 Del Method Room Air 03/10/25 21:43 Common normals: no apparent distress, average body habitus, oriented x3, no limitations, healthy appearing, alert and well nourished [facility] Common normals: normocephalic and head/scalp atraumatic Eye Common normals: PERRL, EOMs intact bilaterally and conjunctivae normal Respiratory Common normals: normal respiratory effort, no retractions and no use of accessory muscles Other: faint wheeze right chest Cardio Common normals: regular rate, regular rhythm, S1 normal heart sound and S2 normal heart sound Extremity Common normals: full ROM Other: bilat lower ext edema-with associated stasis dermatitis appearance Neuro Common normals: oriented x3, CN's II-XII intact bilaterally and moves all extremities Psych Appearance: grossly normal Course Vital Signs Vital signs: Vital Signs Temperature 98.2 F 03/10/25 20:09 Pulse Rate 86 03/10/25 20:09 Respiratory Rate 22 H 03/10/25 20:09 Blood Pressure 184/99 H 03/10/25 20:09 Pulse Oximetry 95 03/10/25 20:09 Oxygen Delivery Method Room Air 03/10/25 20:09 Temperature 98.2 F 03/10/25 20:09 Pulse Rate 66 03/10/25 21:43 Respiratory Rate 18 03/10/25 21:43 Blood Pressure 184/99 H 03/10/25 20:09 Pulse Oximetry 95 03/10/25 21:43 Oxygen Delivery Method Room Air 03/10/25 21:43 MDM - SOB/Dyspnea MDM Narrative Medical decision making narrative: patient presents requesting breathing treatment. Well known to the department . Daily smoker with COPD. Denies chest pain. does not appear to be in any distress. Mild exp wheeze right chest. RA pulse ox 95% with RR 20. Patient treated with Duoneb and observed in the department. Now feeling better and requesting to leave Discharge Plan Discharge Chief Complaint: Shortness of Breath/Dyspnea Clinical Impression: COPD (chronic obstructive pulmonary disease) Patient Disposition: Home, Self-Care Prescriptions / Home Meds: No Action albuterol sulfate 90 mcg/actuation HFA aerosol inhaler 2 inh inhalation Q6H PRN (Reason: shortness of breath or wheezing) albuterol sulfate 2.5 mg /3 mL (0.083 %) solution for nebulization 2.5 mg inhalation Q6H PRN (Reason: shortness of breath or wheezing) Qty: 90 0RF ipratropium-albuterol 0.5 mg-3 mg(2.5 mg base)/3 mL solution for nebulization 3 ml inhalation Q4H PRN (Reason: shortness of breath) Qty: 90 0RF Rx Instructions: until breathing returns to target peak flow/parameters losartan 100 mg tablet 100 mg PO DAILY Qty: 30 0RF Print Language: Sami Instructions: COPD (Chronic Obstructive Pulmonary Disease) (ED) Referrals: SERG DUENAS [Primary Care Provider] - 1 week
[2025-03-10 21:43] VITALS: PULSE 66; O2SAT 95
[2025-03-10] MEDS: IPRATROPIUM/ALBUTEROL SULFATE 3 ML AMPUL.NEB IH (21:43)
== END 2025-03-10 22:12 | disposition home or self-care (01) ==
PROVIDERS: Emergency Provider Internal Medicine
DX: J44.9 Chronic obstructive pulmonary disease, unspecified (principal); F17.200 Nicotine dependence, unspecified, uncomplicated; R06.02 Shortness of breath
CPT/HCPCS: 94640; 99283

== ENCOUNTER 2025-03-11 19:07 | Emergency (ER) | payer MEDICARE, SELFPAY ==
[2025-03-11 19:10] VITALS: BP 212/122; PULSE 81; TEMP 37.1; O2SAT 94; BMI 23.7
--- OUTSIDE RECORDS SUMMARY | 2025-03-11 19:13 | XMS_ITS | CCD ---
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 Garima Pulliam Basophils/100 WBC (Bld) 0.3 % Normal 0.2-2.0 [facility] Comment on above: Performed By: #### C BC ####[facility] Ppztuzbjqn[address] [place] [address]DrAdalberto Pulliam EO # 0.3 103/ul Normal 0.0-0.7 [facility] Comment on above: Performed By: #### C BC ####[facility] I[address]oq[address]qu[address] [place], [place] [address]Dr. Garima Pulliam Eosinophils/100 WBC (Bld) 2.8 % Normal 0.9-7.0 [facility] Comment on above: Performed By: #### C BC ####[facility] Xfuevvwfwr4[address] [place] [address]Dr. Garima Pulliam Erythrocyte distribution width (RBC) [Ratio] 13.4 % Normal 11.0-15.0 [facility] Comment on above: Performed By: #### C BC ####[facility] Skshyyhvwq[address] [place] [address]Dr. Garima Pulliam Hematocrit (Bld) [Volume fraction] 45.7 % Normal 42.0-54.0 [facility] Comment on above: Performed By: #### C BC ####[facility] Phaxegnbij[address] [place] [address]Dr. Garima Pulliam Hemoglobin (Bld) [Mass/Vol] 15.2 g/dL Normal 14.0-18.0 [facility] Comment on above: Performed By: #### C BC ####[facility] Knhqaizasc[address] [place] [address]Dr. Garima Pulliam IG # 0.02 10e3/ul Normal 0.00-0.03 [facility] Comment on above: Performed By: #### C BC ####[facility] Zcqwucmxni4685 [place] [address]Dr. Garima Pulliam IG % 0.2 % Normal 0.0-0.5 [facility] Comment on above: Performed By: #### C BC ####[facility] Xdzimlbtrp67[address] [place] [address]Dr. Garima Pulliam LYMPH # 2.1 103/ul Normal 1.2-3.8 [facility] Comment on above: Performed By: #### C BC ####[facility] Nbfhfqqbfx4922 [place] [address]Dr. Garima Pulliam Lymphocytes/100 WBC (Bld) 23.7 % Normal 20.5-60.0 [facility] Comment on above: Performed By: #### C BC ####[facility] Lzzllnmbch39[address] [place] [address]Dr. Garima Heraclio MANUAL DIFF REQ NO Normal [facility] Comment on above: Performed By: #### C BC ####[facility] Qrdmbkjzix8823 [place] [address]Dr. Garima Pulliam MCH (RBC) [Entitic mass] 30.4 pg Normal 25.9-34.0 [facility] Comment on above: Performed By: #### C BC ####[facility] Ltuegkhvox029[address] [place] [address]Dr. Garima Heraclio MCHC (RBC) [Mass/Vol] 33.3 g/dL Normal 29.9-35.2 [facility] Comment on above: Performed By: #### C BC ####[facility] Bhcfqfjzhi65[address] [place], [place] [address]Dr. Chapisrenu Pulliam MCV (RBC) [Entitic vol] 91.4 fL Normal 80.0-94.0 [facility] Comment on above: Performed By: #### C BC ####[facility] Xjeuukscdp[address] [place], [place] [address]Dr. Garima Heraclio MONO # 0.7 103/ul Normal 0.3-0.8 [facility] Comment on above: Performed By: #### C BC ####[facility] Djqsfqabmk[address] [place], [place] [address]Dr. Chapisrenu Pulliam Monocytes/100 WBC (Bld) 8.3 % Normal 1.7-12.0 [facility] Comment on above: Performed By: #### C BC ####[facility] Gjwwqxpjoy16[address] [place] [address]Dr. Chapisrenu Heraclio NEUT # 5.8 103/ul Normal 1.4-6.5 [facility] Comment on above: Performed By: #### C BC ####[facility] Awmdqyzall26[address] [place], [place] [address]Dr. Garima Pulliam Neutrophils/100 WBC (Bld) 64.7 % Normal 43.0-75.0 [facility] Comment on above: Performed By: #### C BC ####[facility] Rkobflplsn7261 [place] [address]Dr. Garima Pulliam Platelet mean volume (Bld) [Entitic vol] 8.6 fL Critically low 9.5-13.5 [facility] Comment on above: Performed By: #### C BC ####[facility] Ciahlopnoc[address] [place] [address]Dr. Garima Pulliam PLT 230 103/ul Normal 150-450 [facility] Comment on above: Performed By: #### C BC ####[facility] Tovzgkrhsg6832 [place] [address]Dr. Chapisrenu Heraclio RBC 5.00 106/ul Normal 4.70-6.10 [facility] Comment on above: Performed By: #### C BC ####[facility] Gvizhcqirm4519 [place] [address]Dr. Garima Heraclio WBC 9.0 103/ul Normal 4.0-11.0 [facility] Comment on above: Performed By: #### C BC ####[facility] Ulauvbatzu2637 [place] [address]Dr. Garima Pulliam MAGNESIUMon 04-04-2023 Magnesium [Mass/Vol] 1.8 mg/dL Normal 1.8-2.4 [facility] Comment on above: Performed By: #### M G ####[facility] Lcxatjcftm1423 [place] [address]Dr. Chapisrenu Pulliam PROF 14(COMP METB)on 023 Albumin [Mass/Vol] 3.8 g/dL Normal 3.4-5.0 [facility] Comment on above: Performed By: #### C MP ####[facility] Ywtigbwyhm7168 [place] [address]Dr. Garima Pulliam Albumin/Globulin [Mass ratio] 1.2 {ratio} Normal [facility] Comment on above: Performed By: #### C MP ####[facility] Vjrisrodls5263 [place] [address]Dr. Garima Heraclio ALP [Catalytic activity/Vol] 84 U/L Normal 46-116 [facility] Comment on above: Performed By: #### C MP ####[facility] Ayytnkksrb[address]132 [place] [phone]. Garima Pulliam ALT [Catalytic activity/Vol] 31 U/L Normal 16-63 [facility] Comment on above: Performed By: #### C MP ####[facility] Hpkehlogol2315 [place] [address]Dr. Garima Pulliam Anion gap [Moles/Vol] 12.2 mmol/L Normal [facility] Comment on above: Performed By: #### C MP ####[facility] Xncmxyxpzs0195 [place] [address]Dr. Garima Pulliam AST [Catalytic activity/Vol] 23 U/L Normal 15-37 [facility] Comment on above: Performed By: #### C MP ####[facility] Tpzayclssi[address] [place], [place] [address]Dr. Garima Pulliam Bilirubin [Mass/Vol] 0.5 mg/dL Normal 0.2-1.0 [facility] Comment on above: Performed By: #### C MP ####[facility] Apskrtcvme[address] [place], [place] [address]Dr. Garima Pulliam Calcium [Mass/Vol] 9.2 mg/dL Normal 8.5-10.1 [facility] Comment on above: Performed By: #### C MP ####[facility] Zltwahxhds[address] [place], [place] [address]Dr. Garima Pulliam Chloride [Moles/Vol] 103 mmol/L Normal 98-107 [facility] Comment on above: Performed By: #### C MP ####[facility] Axpqbjpfyy6557 [place] [address]Dr. Garima Pulliam CO2 [Moles/Vol] 28.5 mmol/L Normal 21.0-32.0 [facility] Comment on above: Performed By: #### C MP ####[facility] Ssqtggvkpw[address] [place], [place] [address]Dr. Garima Pulliam Creatinine [Mass/Vol] 0.74 mg/dL Normal 0.70-1.30 [facility] Comment on above: Performed By: #### C MP ####[facility] Ws[address]lqaodq7543 [place] [phone]. Garima Pulliam EGFR-AF JAPANESE >60 Normal >=60 [facility] Comment on above: Performed By: #### C MP ####[facility] Gwdzwcaeon5584 [place] [address]Dr. Garima Heraclio EGFR-NON AF JAPANESE >60 Normal >=60 [facility] Comment on above: Performed By: #### C MP ####[facility] Dlimvyciij9737 [place] [phone]. Garima Heraclio Globulin (S) [Mass/Vol] 3.1 g/dL Normal [facility] Comment on above: Performed By: #### C MP ####[facility] Naqbqpvxcq[address] [place], [place] [address]Dr. Garima Heraclio Glucose [Mass/Vol] 93 mg/dL Normal 74-106 [facility] Comment on above: Performed By: #### C MP ####[facility] Ojlmjyfflc[address] [place], [place] [address]Dr. Garima Heraclio Potassium [Moles/Vol] 3.7 mmol/L Normal 3.5-5.1 [facility] Comment on above: Performed By: #### C MP ####[facility] Kbwvymnlwy86[address] [place], [place] [address]Dr. Garima Heraclio Protein [Mass/Vol] 6.9 g/dL Normal 6.4-8.2 [facility] Comment on above: Performed By: #### C MP ####[facility] Vzsuovzihn[address] [place], [place] [address]Dr. Garima Heraclio Sodium [Moles/Vol] 140 mmol/L Normal 136-145 [facility] Comment on above: Performed By: #### C MP ####[facility] Eaamqiwcrv[address] [place], [place] [address]Dr. Garima Pulliam Urea nitrogen [Mass/Vol] 8.0 mg/dL Normal 7.0-18.0 [facility] Comment on above: Performed By: #### C MP ####[facility] Ozuhuurfso568[address] [place], [place] [address]Dr. Garima Pulliam Urea nitrogen/Creatinine [Mass ratio] 10.8 mg/mg Normal [facility] Comment on above: Performed By: #### C DAVID ####[facility] Mhwfbzhwmw7604 [place] [address]Dr. Garima Pulliam AMMONIAon 03-30-2023 Ammonia (P) [Moles/Vol] 11 umol/L Normal 11-32 [facility] Comment on above: Performed By: #### A MM ####[facility] Mlrxcotvpd332[address] [place], [place] [address]Dr. Garima Pulliam CARDIAC NASH ADMITon 023 CK [Catalytic activity/Vol] 232 U/L Normal 39-308 [facility] Comment on above: Performed By: #### C NANCY HERNANDEZ ####[facility] Zoepzgbwls[address] [place] [address]Dr. Chapisrenu Pulliam CK.MB [Mass/Vol] 4.83 ng/mL Critically high <=3.60 [facility] Comment on above: Performed By: #### C NANCY HERNANDEZ ####[facility] Hxipwakxji[address] [place], [place] [address]Dr. Garima Pulliam HSTROP 10.5 pg/mL Normal 4.0-76.1 [facility] Comment on above: Result Comment: CUT- OFF POINTS HAVE BEEN ESTABLISHED BASED ON THE FOURTH UNIVERSAL DEFINITIONS OF MYOCARDIALINFARCTION. THE UPPER REFERENCE LIMIT (URL) OF TROPONIN, DEFINED THE 99TH PERCENTILE OFcTnI DISTRIBUTION IN A REFERENCE POPULATION, HAS BEEN CONFIRMED THE DECISION THRESHOLDFOR MT DIAGNOSIS. Performed By: #### C NANCY HERNANDEZ ####[facility] Sulpolwnsy7[address] [place], [place] [address]Dr. Garima Heraclio DORIS 79 ng/mL Normal 16-96 [facility] Comment on above: Performed By: #### C NANCY HERNANDEZ ####[facility] Mfwvtgdsxh[address] [place], [place] [address]Dr. Garima Heraclio CBC AUTO DIFFon 03-30-2023 BASO # 0.0 103/ul Normal 0.0-0.1 [facility] Comment on above: Performed By: #### C BC ####[facility] Ilxtykmjbx5595 [place] [phone]. Garima Pulliam Basophils/100 WBC (Bld) 0.1 % Critically low 0.2-2.0 [facility] Comment on above: Performed By: #### C BC ####[facility] Fpmkqwrhww0096 [place] [phone]. Garima Pulliam EO # 0.3 103/ul Normal 0.0-0.7 [facility] Comment on above: Performed By: #### C BC ####[facility] [address] [place], [place] [address]Dr. Garima Pulliam Eosinophils/100 WBC (Bld) 3.3 % Normal 0.9-7.0 [facility] Comment on above: Performed By: #### C BC ####[facility] Rheniubekn[address] [place], [place] [address]Dr. Garima Pulliam Erythrocyte distribution width (RBC) [Ratio] 13.5 % Normal 11.0-15.0 [facility] Comment on above: Performed By: #### C BC ####[facility] Edbfkezrgy[address] [place], [place] [address]Dr. Garima Pulliam Hematocrit (Bld) [Volume fraction] 42.9 % Normal 42.0-54.0 [facility] Comment on above: Performed By: #### C BC ####[facility] [address]xx[address]oyg[address] [place], [place] [address]Dr. Garima Pulliam Hemoglobin (Bld) [Mass/Vol] 13.9 g/dL Critically low 14.0-18.0 [facility] Comment on above: Performed By: #### C BC ####[facility] Uhyamqjims7575 [place] [phone]. Garima Pulliam IG # 0.01 10e3/ul Normal 0.00-0.03 [facility] Comment on above: Performed By: #### C BC ####[facility] R[address]vx[address] [place], [place] [address]Dr. Garima Pulliam IG % 0.1 % Normal 0.0-0.5 [facility] Comment on above: Performed By: #### C BC ####[facility] Bsxzafryjy26[address] [place] [phone]. Garima Pulliam LYMPH # 1.7 103/ul Normal 1.2-3.8 [facility] Comment on above: Performed By: #### C BC ####[facility] Osw[address]rzupk8[address] [place], [place] [address]Iu. Garima Pulliam Lymphocytes/100 WBC (Bld) 22.8 % Normal 20.5-60.0 [facility] Comment on above: Performed By: #### C BC ####[facility] Ldckobisat9577 [place] [phone]. Garima Heraclio MANUAL DIFF REQ NO Normal [facility] Comment on above: Performed By: #### C BC ####[facility] Lnydxmxwff4261 [place] [phone]. Garima Heraclio MCH (RBC) [Entitic mass] 30.5 pg Normal 25.9-34.0 [facility] Comment on above: Performed By: #### C BC ####[facility] Zzlxvkqaqc7423 [place] [phone]. Garima Pulliam MCHC (RBC) [Mass/Vol] 32.4 g/dL Normal 29.9-35.2 [facility] Comment on above: Performed By: #### C BC ####[facility] Kjhsmknhxh7109 [place] [phone]. Garima Heraclio MCV (RBC) [Entitic vol] 94.1 fL Critically high 80.0-94.0 [facility] Comment on above: Performed By: #### C BC ####[facility] Ylchdxigfb3217 [place] [phone]. Garima Heraclio MONO # 0.7 103/ul Normal 0.3-0.8 [facility] Comment on above: Performed By: #### C BC ####[facility] Erthieblus76[address] [place] [phone]. Garima Heraclio Monocytes/100 WBC (Bld) 8.6 % Normal 1.7-12.0 [facility] Comment on above: Performed By: #### C BC ####[facility] Uypvsmnmyj7945 [place] [phone]. Garima Pulliam NEUT # 4.9 103/ul Normal 1.4-6.5 [facility] Comment on above: Performed By: #### C BC ####[facility] Pgmshvuwfb3760 [place] [phone]. Garima Pulliam Neutrophils/100 WBC (Bld) 65.1 % Normal 43.0-75.0 [facility] Comment on above: Performed By: #### C BC ####[facility] Todfskjcfw3219 [place] [phone]. Garima Pulliam Platelet mean volume (Bld) [Entitic vol] 8.5 fL Critically low 9.5-13.5 [facility] Comment on above: Performed By: #### C BC ####[facility] Fsxnnwsshs0079 [place] [phone]. Garima Pulliam PLT 219 103/ul Normal 150-450 [facility] Comment on above: Performed By: #### C BC ####[facility] Rbibamhiyl3836 [place] [phone]. Garima Pulliam RBC 4.56 106/ul Critically low 4.70-6.10 [facility] Comment on above: Performed By: #### C BC ####[facility] Nufgkxldzt8219 [place] [phone]. Garima Pulliam WBC 7.6 103/ul Normal 4.0-11.0 [facility] Comment on above: Performed By: #### C BC ####[facility] Mhenjjaxqb8292 [place] [phone]. Garima Pulliam LACTATE/LACTIC ACIDon 2022 Lactate [Moles/Vol] 1.2 mmol/L Normal 0.4-2.0 [facility] Comment on above: Performed By: #### L ACT ####[facility] Bnfiskjqhz7785 [place] [phone]. Garima Pulliam MAGNESIUMon 03-30-2023 Magnesium [Mass/Vol] 1.8 mg/dL Normal 1.8-2.4 [facility] Comment on above: Performed By: #### M G ####[facility] Ycqfkinmuk7969 [place] [address]Dr. Garima Pulliam PROF 14(COMP METB)on 023 Albumin [Mass/Vol] 3.5 g/dL Normal 3.4-5.0 [facility] Comment on above: Performed By: #### C DAVID, CMAANA ROSA ####[facility] Wxjkrarrou9120 [place] [address]Dr. Garima Pulliam Albumin/Globulin [Mass ratio] 1.2 {ratio} Normal [facility] Comment on above: Performed By: #### C DAVID, CMAANA ROSA ####[facility] Yuqxatdqrr6764 [place] [address]Dr. Garima Pulliam ALP [Catalytic activity/Vol] 85 U/L Normal 46-116 [facility] Comment on above: Performed By: #### C DAVID, CMAANA ROSA ####[facility] [address]ptxdqlt[address] [place], [place] [address]Dr. Garima Pulliam ALT [Catalytic activity/Vol] 29 U/L Normal 16-63 [facility] Comment on above: Performed By: #### C DAVID, CMAANA ROSA ####[facility] Vkhqijecvm4821 [place] [address]Dr. Garima Pulliam Anion gap [Moles/Vol] 8.0 mmol/L Normal [facility] Comment on above: Performed By: #### C DAVID, CMAANA ROSA ####[facility] Nixxkhbolg2603 [place] [address]Dr. Garima Pulliam AST [Catalytic activity/Vol] 18 U/L Normal 15-37 [facility] Comment on above: Performed By: #### C DAVID, CMADM ####[facility] Cddcdohcwo0128 [place] [address]Dr. Garima Pulliam Bilirubin [Mass/Vol] 0.4 mg/dL Normal 0.2-1.0 [facility] Comment on above: Performed By: #### C DAVID, CMADM ####[facility] Zlpyhcrecx9700 [place] [address]Dr. Garima Pulliam Calcium [Mass/Vol] 8.8 mg/dL Normal 8.5-10.1 [facility] Comment on above: Performed By: #### C DAVID, NANCY ####[facility] Btryfmeoet9149 [place] [address]Dr. Chapisrenu Pulliam Chloride [Moles/Vol] 108 mmol/L Critically high 98-107 [facility] Comment on above: Performed By: #### C DAVID, NANCY ####[facility] Rdfonfsptm1404 [place] [address]Dr. Garima Pulliam CO2 [Moles/Vol] 29.6 mmol/L Normal 21.0-32.0 [facility] Comment on above: Performed By: #### C NANCY HERNANDEZ ####[facility] Hpc[address]ainmjk[address] [place], [place] [address]Dr. Garima Pulliam Creatinine [Mass/Vol] 0.77 mg/dL Normal 0.70-1.30 [facility] Comment on above: Performed By: #### C NANCY HERNANDEZ ####[facility] Jhnwqrmubd[address] [place], [place] [address]Dr. Garima Heraclio EGFR-AF JAPANESE >60 Normal >=60 [facility] Comment on above: Performed By: #### C NANCY HERNANDEZ ####[facility] Rnvkdmmeyb[address] [place], [place] [address]Dr. Garima Hercalio EGFR-NON AF JAPANESE >60 Normal >=60 [facility] Comment on above: Performed By: #### C NANCY HERNANDEZ ####[facility] Xarszqrjqt7768 [place] [address]Dr. Garima Pulliam Globulin (S) [Mass/Vol] 2.8 g/dL Normal [facility] Comment on above: Performed By: #### C NANCY HERNANDEZ ####[facility] Nmocxrmxss7274 [place] [address]Dr. Garima Pulliam Glucose [Mass/Vol] 207 mg/dL Critically high 74-106 [facility] Comment on above: Performed By: #### C NANCY HERNANDEZ ####[facility] Nhdwslgtva[address] [place], [place] [address]Dr. Garima Pulliam Potassium [Moles/Vol] 4.6 mmol/L Normal 3.5-5.1 [facility] Comment on above: Performed By: #### C DAVID, NANCY ####[facility] Dkqmtwvshp2221 [place] [address]Dr. Garima Pulliam Protein [Mass/Vol] 6.3 g/dL Critically low 6.4-8.2 [facility] e [facility] Comment on above: Performed By: #### C DAVID, NANCY ####[facility] Ezqvubmicw9151 [place] [address]Dr. Garima Pulliam Sodium [Moles/Vol] 141 mmol/L Normal 136-145 [facility] Comment on above: Performed By: #### C DAVID, NANCY ####[facility] Nwbffwavba3846 [place] [address]Dr. Garima Pulliam Urea nitrogen [Mass/Vol] 9.0 mg/dL Normal 7.0-18.0 [facility] Comment on above: Performed By: #### C DAVID, NANCY ####[facility] Gpcideullg0703 [place] [address]Dr. Garima Pulliam Urea nitrogen/Creatinine [Mass ratio] 11.7 mg/mg Normal [facility] Comment on above: Performed By: #### C DAVID, NANCY ####[facility] Qoyzqybtma4344 [place] [address]Dr. Garima Pulliam XR CHEST 1 Von 03-30-2023 XR CHEST 1 V Normal [facility] BNPon 03-27-2023 Natriuretic peptide B (Bld) [Mass/Vol] 251.0 pg/mL Normal <=900.0 [facility] Comment on above: Performed By: #### C MP, BNP, LIPID ####[facility] Febpwqbjit2817 [place] [address]Dr. Garima Pulliam GLYCOHEMOGLOBIN A1Con 2022 ADA RECOMMENDATION SEE BELOW Normal [facility] Comment on above: Result Comment: ADA RECOMMENDED LIMIT 4.0 - 6.0 ADA THERAPEUTIC TARGET < 7.0 ACTION SUGGESTED > 7.0 Performed By: #### A 1C ####[facility] Qlkbtxfyxg6718 [place] [address]Dr. Garima Pulliam Glucose [Mass/Vol] 180 mg/dL Normal [facility] Comment on above: Performed By: #### A 1C ####[facility] Teyujzkuzv[address] [place], [place] [address]Dr. Chapisrenu Pulliam HbA1c (Bld) [Mass fraction] 7.9 % Critically high 4.5-6.2 [facility] Comment on above: Performed By: #### A 1C ####[facility] Xchhhvxwua4[address] [place], [place] [address]Dr. Garima Pulliam HEMOGRAM AND PLATELon 2022 Hematocrit (Bld) [Volume fraction] 45.7 % Normal 42.0-54.0 [facility] Comment on above: Performed By: #### H H ####[facility] Boitvmhfpc[address] [place], [place] [address]Dr. Garima Pulliam Hemoglobin (Bld) [Mass/Vol] 15.1 g/dL Normal 14.0-18.0 [facility] Comment on above: Performed By: #### H H ####[facility] Dgwddtolrr[address] [place], [place] [address]Dr. Garima Pulliam MCH (RBC) [Entitic mass] 30.0 pg Normal 25.9-34.0 [facility] Comment on above: Performed By: #### H H ####[facility] Qmcaljjind[address] [place], [place] [address]Dr. Garima Pulliam MCHC (RBC) [Mass/Vol] 33.0 g/dL Normal 29.9-35.2 [facility] Comment on above: Performed By: #### H H ####[facility] Lvwauikoha[address] [place], [place] [address]Dr. Garima Pulliam MCV (RBC) [Entitic vol] 90.7 fL Normal 80.0-94.0 [facility] Comment on above: Performed By: #### H H ####[facility] [address]xfueskfom[address] [place], [place] [address]Dr. Garima Pulliam PLT 222 103/ul Normal 150-450 [facility] Comment on above: Performed By: #### H H ####[facility] [address]irfatnld[address] [place] [id number]. Garima Pulliam RBC 5.04 106/ul Normal 4.70-6.10 [facility] Comment on above: Performed By: #### H H ####[facility] Csiertlbvt4276 [place] [id number]. Garima Pulliam WBC 8.7 103/ul Normal 4.0-11.0 [facility] Comment on above: Performed By: #### H H ####[facility] Prmezejmrl6826 [place] [id number]. Garima Pulliam LIPID PROFILEon 03-27-2023 CHOL-HDL RATIO NORM SEE BELOW Normal [facility] Comment on above: Result Comment: 3.3 - 4.4 LOW RISK 4.4 - 7.1 AVERAGE RISK 7.1 - 11.0 MODERATE RISK >11.0 HIGH RISK Performed By: #### C MP, BNP, LIPID ####[facility] Fkyltpidfr[address] [place] [address]Dr. Garima Pulliam Cholesterol [Mass/Vol] 113 mg/dL Normal <=200 [facility] Comment on above: Performed By: #### C MP, BNP, LIPID ####[facility] Xbcoimwfkd6794 [place] [address]Dr. Garima Pulliam Cholesterol in HDL [Mass/Vol] 51 mg/dL Normal 40-60 [facility] Comment on above: Performed By: #### C MP, BNP, LIPID ####[facility] Zevtazkwrj7981 [place] [address]Dr. Garmia Pulliam Cholesterol in LDL [Mass/Vol] 49.8 mg/dL Normal [facility] Comment on above: Performed By: #### C MP, BNP, LIPID ####[facility] Kcufdegjlk7668 [place] [address]Dr. Garima Pulliam Cholesterol.total/Cho lesterol in HDL [Mass ratio] 2.2 {ratio} Normal [facility] Comment on above: Performed By: #### C MP, BNP, LIPID ####[facility] Urjcoldezd0721 [place] [address]Dr. Garima Pulliam HDL NORMAL > or = 60 mg/dl - LOW CARDIOVASCULAR RISK <40 mg/dl - HIGH CARDIOVASCULAR RISK Normal [facility] Comment on above: Performed By: #### C MP, BNP, LIPID ####[facility] Wymgkmjvyj7794 [place] [address]Dr. Garima Pulliam LDL CALC NORMAL SEE BELOW Normal [facility] Comment on above: Result Comment: <100 mg/dl OPTIMAL 100 - 129 mg/dl NEAR OR ABOVE OPTIMAL 130 - 159 mg/dl BORDERLINE HIGH 160 - 189 mg/dl HIGH >190 mg/dl VERY HIGH Performed By: #### C MP, BNP, LIPID ####[facility] Ufumuhqozq[address] [place] [address]Dr. Garima Pulliam Triglyceride [Mass/Vol] 61 mg/dL Normal <=150 [facility] Comment on above: Performed By: #### C MP, BNP, LIPID ####[facility] Ptvpjbtlqe8846 [place] [address]Dr. Garima Pulliam VLDL CALC 12.2 mg/dL Normal [facility] Comment on above: Performed By: #### C MP, BNP, LIPID ####[facility] Nbckeolfoa5388 [place] [address]Dr. Garima Pulliam PROF 14(COMP METB)on 023 Albumin [Mass/Vol] 3.5 g/dL Normal 3.4-5.0 [facility] Comment on above: Performed By: #### C MP, BNP, LIPID ####[facility] Ffadeibkck5801 [place] [address]Dr. Garima Pulliam Albumin/Globulin [Mass ratio] 1.2 {ratio} Normal [facility] Comment on above: Performed By: #### C MP, BNP, LIPID ####[facility] Pmfznqqduz4914 [place] [address]Dr. Garima Pulliam ALP [Catalytic activity/Vol] 82 U/L Normal 46-116 [facility] Comment on above: Performed By: #### C MP, BNP, LIPID ####[facility] Bvkqohfbax3235 [place] [address]Dr. Garima Pulliam ALT [Catalytic activity/Vol] 33 U/L Normal 16-63 [facility] Comment on above: Performed By: #### C MP, BNP, LIPID ####[facility] Dwatafcnzp1059 [place] [address]Dr. Garima Pulliam Anion gap [Moles/Vol] 9.9 mmol/L Normal [facility] Comment on above: Performed By: #### C MP, BNP, LIPID ####[facility] Kewldtqkhc5321 [place] [address]Dr. Garima Pulliam AST [Catalytic activity/Vol] 24 U/L Normal 15-37 [facility] Comment on above: Performed By: #### C MP, BNP, LIPID ####[facility] Dfliebacii4860 [place] [address]Dr. Garima Pulliam Bilirubin [Mass/Vol] 0.6 mg/dL Normal 0.2-1.0 [facility] Comment on above: Performed By: #### C MP, BNP, LIPID ####[facility] Rcxiwnccne5371 [place] [address]Dr. Garima Pulliam Calcium [Mass/Vol] 9.2 mg/dL Normal 8.5-10.1 [facility] Comment on above: Performed By: #### C MP, BNP, LIPID ####[facility] Qbbzxdgefl5792 [place] [address]Dr. Garima Pulliam Chloride [Moles/Vol] 106 mmol/L Normal 98-107 [facility] Comment on above: Performed By: #### C MP, BNP, LIPID ####[facility] Icfppxcgyx7318 [place] [address]Dr. Garima Pulliam CO2 [Moles/Vol] 32.3 mmol/L Critically high 21.0-32.0 [facility] Comment on above: Performed By: #### C MP, BNP, LIPID ####[facility] Qzgcegiiwd6328 [place] [address]Dr. Garima Pulliam Creatinine [Mass/Vol] 0.70 mg/dL Normal 0.70-1.30 [facility] Comment on above: Performed By: #### C MP, BNP, LIPID ####[facility] Xqxcsmusxo6086 [place] [id number]. Garima Pulliam EGFR-AF JAPANESE >60 Normal >=60 [facility] Comment on above: Performed By: #### C MP, BNP, LIPID ####[facility] Pfdkpgwylj4575 [place] [id number]. Garima Pulliam EGFR-NON AF JAPANESE >60 Normal >=60 [facility] Comment on above: Performed By: #### C MP, BNP, LIPID ####[facility] Bqijhgcdph3526 [place] [address]Dr. Garima Pulliam Globulin (S) [Mass/Vol] 2.9 g/dL Normal [facility] Comment on above: Performed By: #### C MP, BNP, LIPID ####[facility] Lfmzaiwxul2688 [place] [address]Dr. Garima Pulliam Glucose [Mass/Vol] 111 mg/dL Critically high 74-106 [facility] Comment on above: Performed By: #### C MP, BNP, LIPID ####[facility] Qbbtjglsar8257 [place] [address]Dr. Garima Pulliam Potassium [Moles/Vol] 4.2 mmol/L Normal 3.5-5.1 [facility] Comment on above: Performed By: #### C MP, BNP, LIPID ####[facility] Pizbbprunm0305 [place] [address]Dr. Garima Pulliam Protein [Mass/Vol] 6.4 g/dL Normal 6.4-8.2 [facility] Comment on above: Performed By: #### C MP, BNP, LIPID ####[facility] Erfzziswwe9313 [place] [address]Dr. Garima Pulliam Sodium [Moles/Vol] 144 mmol/L Normal 136-145 [facility] Comment on above: Performed By: #### C MP, BNP, LIPID ####[facility] Kpygttsjqz3445 [place] [address]Dr. Garima Pulliam Urea nitrogen [Mass/Vol] 7.0 mg/dL Normal 7.0-18.0 [facility] Comment on above: Performed By: #### C MP, BNP, LIPID ####[facility] O[address]fyojbfs[address] [place], [place] [address]Dr. Garima Pulliam Urea nitrogen/Creatinine [Mass ratio] 10.0 mg/mg Normal [facility] Comment on above: Performed By: #### C MP, BNP, LIPID ####[facility] Nvckiioedx[address] [place], [place] [address]Dr. Garima Pulliam BNPon 03-22-2023 Natriuretic peptide B (Bld) [Mass/Vol] 103.0 pg/mL Normal <=900.0 [facility] Comment on above: Performed By: #### B ASSOCIATE SOFTWARE DEVELOPER, BMP ####[facility] Ylphptjykh188[address] [place], [place] [address]Dr. Garima Pulliam CBC AUTO DIFFon 03-22-2023 BASO # 0.0 103/ul Normal 0.0-0.1 [facility] Comment on above: Performed By: #### C BC ####[facility] Cftgekiizp[address] [place], [place] [address]Dr. Garima Heraclio Basophils/100 WBC (Bld) 0.3 % Normal 0.2-2.0 [facility] Comment on above: Performed By: #### C BC ####[facility] Ecvgxrfcku4[address] [place], [place] [address]Dr. Garima Pulliam EO # 0.2 103/ul Normal 0.0-0.7 [facility] Comment on above: Performed By: #### C BC ####[facility] Bhvugwipqr38[address] [place], [place] [address]Dr. Garima Pulliam Eosinophils/100 WBC (Bld) 2.2 % Normal 0.9-7.0 [facility] Comment on above: Performed By: #### C BC ####[facility] Ctfrcbtubx[address] [place], [place] [address]Dr. Garima Pulliam Erythrocyte distribution width (RBC) [Ratio] 13.2 % Normal 11.0-15.0 [facility] Comment on above: Performed By: #### C BC ####[facility] Smodjhozfa7068 [place] [id number]. Garima Pulliam Hematocrit (Bld) [Volume fraction] 43.4 % Normal 42.0-54.0 [facility] Comment on above: Performed By: #### C BC ####[facility] Jqzhxrmbgg1496 [place] [address]Dr. Garima Heraclio Hemoglobin (Bld) [Mass/Vol] 14.3 g/dL Normal 14.0-18.0 [facility] Comment on above: Performed By: #### C BC ####[facility] Ombdzaposi9074 [place] [address]Dr. Garima Pulliam IG # 0.02 10e3/ul Normal 0.00-0.03 [facility] Comment on above: Performed By: #### C BC ####[facility] Ptxyktzchg0506 [place] [address]Dr. Garima Pulliam IG % 0.3 % Normal 0.0-0.5 [facility] Comment on above: Performed By: #### C BC ####[facility] Eyqdzzmzlv7729 [place] [address]Dr. Chapisrenu Pulliam LYMPH # 2.0 103/ul Normal 1.2-3.8 [facility] Comment on above: Performed By: #### C BC ####[facility] Tdhmhcnaif7112 [place] [address]Dr. Chapisrenu Pulliam Lymphocytes/100 WBC (Bld) 24.8 % Normal 20.5-60.0 [facility] Comment on above: Performed By: #### C BC ####[facility] Dzbwqyjavo1181 [place] [address]Dr. Chapisrenu Pulliam MANUAL DIFF REQ NO Normal [facility] Comment on above: Performed By: #### C BC ####[facility] Unzzlkdpuq7788 [place] [address]Dr. Garima Heraclio MCH (RBC) [Entitic mass] 30.0 pg Normal 25.9-34.0 [facility] Comment on above: Performed By: #### C BC ####[facility] Ntdhlfulon[address] [place], [place] [address]Dr. Garima Pulliam MCHC (RBC) [Mass/Vol] 32.9 g/dL Normal 29.9-35.2 [facility] Comment on above: Performed By: #### C BC ####[facility] Lhcnopzuym4215 [place] [id number]. Garima Pulliam MCV (RBC) [Entitic vol] 91.0 fL Normal 80.0-94.0 [facility] Comment on above: Performed By: #### C BC ####[facility] Fexsfygucg4743 [place] [id number]. Garima Heraclio MONO # 0.8 103/ul Normal 0.3-0.8 [facility] Comment on above: Performed By: #### C BC ####[facility] Zcxvoebxba8215 [place] [address]Dr. Chapisrenu Pulliam Monocytes/100 WBC (Bld) 9.7 % Normal 1.7-12.0 [facility] Comment on above: Performed By: #### C BC ####[facility] Hpmrcjzmvv4861 [place] [address]Dr. Garima Pulliam NEUT # 4.9 103/ul Normal 1.4-6.5 [facility] Comment on above: Performed By: #### C BC ####[facility] Jbflcxuozt5264 [place] [id number]. Garima Heraclio Neutrophils/100 WBC (Bld) 62.7 % Normal 43.0-75.0 [facility] Comment on above: Performed By: #### C BC ####[facility] Gtqzfqysrl9214 [place] [id number]. Garima Heraclio Platelet mean volume (Bld) [Entitic vol] 8.8 fL Critically low 9.5-13.5 [facility] Comment on above: Performed By: #### C BC ####[facility] Yeeyzjypff3879 [place] [id number]. Garima Heraclio PLT 198 103/ul Normal 150-450 [facility] Comment on above: Performed By: #### C BC ####[facility] Rkcrwyzyjl6113 [place] [id number]. Garima Heraclio RBC 4.77 106/ul Normal 4.70-6.10 [facility] Comment on above: Performed By: #### C BC ####[facility] Vrdjklsrpr3437 [place] [id number]. Garima Heraclio WBC 7.9 103/ul Normal 4.0-11.0 [facility] Comment on above: Performed By: #### C BC ####[facility] Kaniyvrguo1747 [place] [id number]. Garima Heraclio D-DIMERon 03-22-2023 D-DIMER 0.85 mg/L FEU Critically high <=0.59 [facility] Comment on above: Performed By: #### D DIM ####[facility] Evmtvelkuu7998 [place] [address]Dr. Garima Pulliam D-DIMER COMMENTS SEE BELOW Normal [...] generalized hospitalization. Performed By: #### D DIM ####[facility] Tkilbtlpxa[address] [place], [place] [address]Dr. Garima Pulliam PROF CHEM 8 (BAS METB)on Anion gap [Moles/Vol] 6.9 mmol/L Normal [facility] Comment on above: Performed By: #### B ASSOCIATE SOFTWARE DEVELOPER, BMP ####[facility] Avvkbgtvwv5136 [place] [address]Dr. Garima Pulliam Calcium [Mass/Vol] 8.9 mg/dL Normal 8.5-10.1 [facility] Comment on above: Performed By: #### B ASSOCIATE SOFTWARE DEVELOPER, BMP ####[facility] Kvbgtztzba9422 [place] [address]Dr. Garima Pulliam Chloride [Moles/Vol] 101 mmol/L Normal 98-107 [facility] Comment on above: Performed By: #### B ASSOCIATE SOFTWARE DEVELOPER, BMP ####[facility] Ancwvrmqgo91[address] [place], [place] [address]Dr. Chapisrenu Heraclio CO2 [Moles/Vol] 30.7 mmol/L Normal 21.0-32.0 [facility] Comment on above: Performed By: #### B ASSOCIATE SOFTWARE DEVELOPER, BMP ####[facility] Blbcwyrsxt45[address] [place], [place] [address]Dr. Garima Pulliam Creatinine [Mass/Vol] 0.82 mg/dL Normal 0.70-1.30 [facility] Comment on above: Performed By: #### B ASSOCIATE SOFTWARE DEVELOPER, BMP ####[facility] Ztocpbpypa[address] [place], [place] [address]Dr. Garima Pulliam EGFR-AF JAPANESE >60 Normal >=60 [facility] Comment on above: Performed By: #### B ASSOCIATE SOFTWARE DEVELOPER, BMP ####[facility] Rksmninaaz184[address] [place], [place] [address]Dr. Chapisrenu Heraclio EGFR-NON AF JAPANESE >60 Normal >=60 [facility] Comment on above: Performed By: #### B ASSOCIATE SOFTWARE DEVELOPER, BMP ####[facility] Xiehohoenb2222[address] [place], [place] [address]Dr. Garima Pulliam Glucose [Mass/Vol] 339 mg/dL Critically high 74-106 [facility] Comment on above: Performed By: #### B ASSOCIATE SOFTWARE DEVELOPER, BMP ####[facility] Aiawqzoijg495[address] [place], [place] [address]Dr. Garima Pulliam Potassium [Moles/Vol] 3.6 mmol/L Normal 3.5-5.1 [facility] Comment on above: Performed By: #### B ASSOCIATE SOFTWARE DEVELOPER, BMP ####[facility] Lcvmgiacgu5[address] [place], [place] [address]Dr. Garima Pulliam Sodium [Moles/Vol] 135 mmol/L Critically low 136-145 [facility] Comment on above: Performed By: #### B ASSOCIATE SOFTWARE DEVELOPER, BMP ####[facility] Ujjizzdcve0980[address] [place], [place] [address]Dr. Garima Pulliam Urea nitrogen [Mass/Vol] 11.0 mg/dL Normal 7.0-18.0 [facility] Comment on above: Performed By: #### B ASSOCIATE SOFTWARE DEVELOPER, BMP ####[facility] Ralvigxrue1660[address] [place], [place] [address]Dr. Garima Pulliam Urea nitrogen/Creatinine [Mass ratio] 13.4 mg/mg Normal [facility] Comment on above: Performed By: #### B ASSOCIATE SOFTWARE DEVELOPER, BMP ####[facility] Trzbfvqulj770[address] [place], [place] [address]Dr. Garima Pulliam US VERONICA DOP LEG BILon 023 US VERONICA DOP LEG BENOIT Normal [facility] BNPon 03-18-2023 Natriuretic peptide B (Bld) [Mass/Vol] 226.0 pg/mL Normal <=900.0 [facility] Comment on above: Performed By: #### B ASSOCIATE SOFTWARE DEVELOPER, BMP ####[facility] Qjgvqpwlof[address] [place], [place] [address]Dr. Garima Pulliam CBC AUTO DIFFon 03-18-2023 BASO # 0.0 103/ul Normal 0.0-0.1 [facility] Comment on above: Performed By: #### C BC ####[facility] Fjtjvhvygb762[address] [place], [place] [address]Dr. Garima Heraclio Basophils/100 WBC (Bld) 0.2 % Normal 0.2-2.0 [facility] Comment on above: Performed By: #### C BC ####[facility] Wlbfdwgjgk1999[address] [place], [place] [address]Dr. Garima Pulliam EO # 0.3 103/ul Normal 0.0-0.7 [facility] Comment on above: Performed By: #### C BC ####[facility] Qvwfzctrkj4737[address] [place], [place] [address]Dr. Garima Heraclio Eosinophils/100 WBC (Bld) 2.5 % Normal 0.9-7.0 [facility] Comment on above: Performed By: #### C BC ####[facility] Yvvkmxszdk394[address] [place], [place] [address]Dr. Garima Heraclio Erythrocyte distribution width (RBC) [Ratio] 13.2 % Normal 11.0-15.0 [facility] Comment on above: Performed By: #### C BC ####[facility] Dubjnbcuvi6236 [place] [address]DrAdalberto Pulliam Hematocrit (Bld) [Volume fraction] 45.8 % Normal 42.0-54.0 [facility] Comment on above: Performed By: #### C BC ####[facility] Vyegndbnpo8937 [place] [address]DrAdalberto Pluliam Hemoglobin (Bld) [Mass/Vol] 15.3 g/dL Normal 14.0-18.0 [facility] Comment on above: Performed By: #### C BC ####[facility] Ghahiekoes[address] [place], [place] [address]DrAdalberto Pulliam IG # 0.02 10e3/ul Normal 0.00-0.03 [facility] Comment on above: Performed By: #### C BC ####[facility] Asbtlbpntd44[address] [place], [place] [address]DrAdalberto Pulliam IG % 0.2 % Normal 0.0-0.5 [facility] Comment on above: Performed By: #### C BC ####[facility] Zroszxrvhr[address] [place], [place] [address]DrAdalberto Pulliam LYMPH # 1.8 103/ul Normal 1.2-3.8 [facility] Comment on above: Performed By: #### C BC ####[facility] Mwrasxoiil80[address] [place], [place] [address]DrAdalberto Pulliam Lymphocytes/100 WBC (Bld) 18.3 % Critically low 20.5-60.0 [facility] Comment on above: Performed By: #### C BC ####[facility] Cziybqqkew[address] [place], [place] [address]DrAdalberto Pulliam MANUAL DIFF REQ NO Normal [facility] Comment on above: Performed By: #### C BC ####[facility] Bxdtugdlpc0807 [place] [address]DrAdalberto Pulliam MCH (RBC) [Entitic mass] 30.5 pg Normal 25.9-34.0 [facility] Comment on above: Performed By: #### C BC ####[facility] Uyscqtsrgm9830 [place] [address]DrAdalberto Pulliam MCHC (RBC) [Mass/Vol] 33.4 g/dL Normal 29.9-35.2 [facility] Comment on above: Performed By: #### C BC ####[facility] Prfvxnprmy9837 [place] [address]DrAdalberto Pulliam MCV (RBC) [Entitic vol] 91.2 fL Normal 80.0-94.0 [facility] Comment on above: Performed By: #### C BC ####[facility] Hfavgecpbe80[address] [place], [place] [address]DrAdalberto Pulliam MONO # 0.8 103/ul Normal 0.3-0.8 [facility] Comment on above: Performed By: #### C BC ####[facility] Wqhejfxiuu[address] [place], [place] [address]DrAdalberto Pulliam Monocytes/100 WBC (Bld) 7.6 % Normal 1.7-12.0 [facility] Comment on above: Performed By: #### C BC ####[facility] Jhdnvrdjsl[address] [place], [place] [address]DrAdalberto Pulliam NEUT # 7.0 103/ul Critically high 1.4-6.5 [facility] Comment on above: Performed By: #### C BC ####[facility] Fbcpynufti22[address] [place], [place] [address]DrAdalberto Pulliam Neutrophils/100 WBC (Bld) 71.2 % Normal 43.0-75.0 [facility] Comment on above: Performed By: #### C BC ####[facility] Rmnspwipuw[address] [place], [place] [address]DrAdalberto Pulliam Platelet mean volume (Bld) [Entitic vol] 8.9 fL Critically low 9.5-13.5 [facility] Comment on above: Performed By: #### C BC ####[facility] Kiixauloqh[address] [place], [place] [address]DrAdalberto Pulliam PLT 217 103/ul Normal 150-450 [facility] Comment on above: Performed By: #### C BC ####[facility] Jsawyhxxmk0964 [place] [address]Dr. Garima Heraclio RBC 5.02 106/ul Normal 4.70-6.10 [facility] Comment on above: Performed By: #### C BC ####[facility] Vrruzukvur[address] [place], [place] [address]Dr. Garima Pulliam WBC 9.8 103/ul Normal 4.0-11.0 [facility] Comment on above: Performed By: #### C BC ####[facility] Tqsmtxtsfd97[address] [place], [place] [address]Dr. Garima Heraclio CRPon 03-18-2023 CRP 0.1 mg/dL Normal <=1.0 [facility] Comment on above: Performed By: #### C RP ####[facility] Nwlthxbejp[address] [place], [place] [address]Dr. Garima Heraclio PROF CHEM 8 (BAS METB)on Anion gap [Moles/Vol] 10.4 mmol/L Normal [facility] Comment on above: Performed By: #### B ASSOCIATE SOFTWARE DEVELOPER, BMP ####[facility] Ftkunvmaje[address] [place], [place] [address]Dr. Garima Heraclio Calcium [Mass/Vol] 8.8 mg/dL Normal 8.5-10.1 [facility] Comment on above: Performed By: #### B ASSOCIATE SOFTWARE DEVELOPER, BMP ####[facility] Gocqhfnawg[address] [place], [place] [address]Dr. Garima Heraclio Chloride [Moles/Vol] 97 mmol/L Critically low 98-107 [facility] Comment on above: Performed By: #### B ASSOCIATE SOFTWARE DEVELOPER, BMP ####[facility] Nnuwdsaoij6[address] [place], [place] [address]Dr. Garima Pulliam CO2 [Moles/Vol] 31.2 mmol/L Normal 21.0-32.0 [facility] Comment on above: Performed By: #### B ASSOCIATE SOFTWARE DEVELOPER, BMP ####[facility] Wqeopelows[address] [place], [place] [address]Dr. Garima Pulliam Creatinine [Mass/Vol] 0.91 mg/dL Normal 0.70-1.30 [facility] Comment on above: Performed By: #### B ASSOCIATE SOFTWARE DEVELOPER, BMP ####[facility] Yiwvowmued9177 [place] [address]Dr. Garima Pulliam EGFR-AF JAPANESE >60 Normal >=60 [facility] Comment on above: Performed By: #### B ASSOCIATE SOFTWARE DEVELOPER, BMP ####[facility] Yphpxdcmcl8843 [place] [id number]. Garima Pulliam EGFR-NON AF JAPANESE >60 Normal >=60 [facility] Comment on above: Performed By: #### B ASSOCIATE SOFTWARE DEVELOPER, BMP ####[facility] Dkfknpunrx6418 [place] [address]Dr. Garima Pulliam Glucose [Mass/Vol] 315 mg/dL Critically high 74-106 T [facility] Comment on above: Performed By: #### B ASSOCIATE SOFTWARE DEVELOPER, BMP ####[facility] Gyspofokzw0894 [place] [address]Dr. Garima Pulliam Potassium [Moles/Vol] 3.6 mmol/L Normal 3.5-5.1 [facility] Comment on above: Performed By: #### B ASSOCIATE SOFTWARE DEVELOPER, BMP ####[facility] Utoqdmxgmx1805 [place] [address]Dr. Garima Pulliam Sodium [Moles/Vol] 135 mmol/L Critically low 136-145 Th [facility] Comment on above: Performed By: #### B ASSOCIATE SOFTWARE DEVELOPER, BMP ####[facility] [address]ax[address] [place] [address]Dr. Garima Pulliam Urea nitrogen [Mass/Vol] 7.0 mg/dL Normal 7.0-18.0 [facility] Comment on above: Performed By: #### B ASSOCIATE SOFTWARE DEVELOPER, BMP ####[facility] [address]ucemtx[address] [place] [address]Dr. Garima Pulliam Urea nitrogen/Creatinine [Mass ratio] 7.7 mg/mg Normal [facility] Comment on above: Performed By: #### B ASSOCIATE SOFTWARE DEVELOPER, BMP ####[facility] Yaghqsfiff[address] [place] [address]Dr. Garima Pulliam SED RATE WESTERGRENon 2022 SED RATE 8 mm/hr Normal <=20 [facility] Comment on above: Performed By: #### S EDR ####[facility] Ozdusmhcjq[address] [place], [place] [address]Dr. Garima Pulliam BNPon 03-16-2023 Natriuretic peptide B (Bld) [Mass/Vol] 241.0 pg/mL Normal <=900.0 [facility] Comment on above: Performed By: #### B ASSOCIATE SOFTWARE DEVELOPER, BMP, HSTROPN ####[facility] Vflysvlhuo[address] [place], [place] [address]Dr. Garima Heraclio CBC AUTO DIFFon 03-16-2023 BASO # 0.0 103/ul Normal 0.0-0.1 [facility] Comment on above: Performed By: #### C BC ####[facility] Kvdfdjwjhg[address] [place], [place] [address]Dr. Chapisrenu Pulliam Basophils/100 WBC (Bld) 0.2 % Normal 0.2-2.0 [facility] Comment on above: Performed By: #### C BC ####[facility] Qhvxmcomfp[address] [place], [place] [address]Dr. Garima Pulliam EO # 0.2 103/ul Normal 0.0-0.7 [facility] Comment on above: Performed By: #### C BC ####[facility] Hyjryzkkzl[address] [place], [place] [address]Dr. Chapisrenu Pulliam Eosinophils/100 WBC (Bld) 2.7 % Normal 0.9-7.0 [facility] Comment on above: Performed By: #### C BC ####[facility] Knqslxowuz[address] [place], [place] [address]Dr. Garima Pulliam Erythrocyte distribution width (RBC) [Ratio] 13.1 % Normal 11.0-15.0 [facility] Comment on above: Performed By: #### C BC ####[facility] Dfsumonwsf[address] [place], [place] [address]Dr. Garima Pulliam Hematocrit (Bld) [Volume fraction] 41.8 % Critically low 42.0-54.0 [facility] Comment on above: Performed By: #### C BC ####[facility] W[address]psrcifk[address] [place] [address]Dr. Garima Pulliam Hemoglobin (Bld) [Mass/Vol] 14.0 g/dL Normal 14.0-18.0 [facility] Comment on above: Performed By: #### C BC ####[facility] Yrlepzltgt[address] [place] [address]Dr. Garima Pulliam IG # 0.03 10e3/ul Normal 0.00-0.03 [facility] Comment on above: Performed By: #### C BC ####[facility] Cveztuurcg[address] [place] [address]Dr. Garima Pulliam IG % 0.3 % Normal 0.0-0.5 [facility] Comment on above: Performed By: #### C BC ####[facility] Xrihkdbkku[address] [place], [place] [address]Dr. Chapisrenu Pulliam LYMPH # 2.1 103/ul Normal 1.2-3.8 [facility] Comment on above: Performed By: #### C BC ####[facility] Bgjcxctlfj64[address] [place], [place] [address]Dr. Chapisrenu Pulliam Lymphocytes/100 WBC (Bld) 24.2 % Normal 20.5-60.0 [facility] Comment on above: Performed By: #### C BC ####[facility] Ojhxuletjs[address] [place] [address]Dr. Garima Pulliam MANUAL DIFF REQ NO Normal [facility] Comment on above: Performed By: #### C BC ####[facility] Xkqlqfsdwb6[address] [place] [address]Dr. Garima Pulliam MCH (RBC) [Entitic mass] 30.2 pg Normal 25.9-34.0 [facility] Comment on above: Performed By: #### C BC ####[facility] Bx[address]yintqb[address] [place] [address]Dr. Garima Pulliam MCHC (RBC) [Mass/Vol] 33.5 g/dL Normal 29.9-35.2 [facility] Comment on above: Performed By: #### C BC ####[facility] [address]zrehnbene[address] [place] [phone]. Garima Pulliam MCV (RBC) [Entitic vol] 90.1 fL Normal 80.0-94.0 [facility] Comment on above: Performed By: #### C BC ####[facility] Dtsiizchfg[address] [place] [phone]. Garima Pulliam MONO # 0.6 103/ul Normal 0.3-0.8 [facility] Comment on above: Performed By: #### C BC ####[facility] Mvzftuacpk7[address] [place] [address]Dr. Garima Heraclio Monocytes/100 WBC (Bld) 7.4 % Normal 1.7-12.0 [facility] Comment on above: Performed By: #### C BC ####[facility] Rjbewepykh[address] [place], [place] [address]Dr. Garima Pulliam NEUT # 5.6 103/ul Normal 1.4-6.5 [facility] Comment on above: Performed By: #### C BC ####[facility] Ppnjuuaqov[address] [place], [place] [address]Dr. Garima Heraclio Neutrophils/100 WBC (Bld) 65.2 % Normal 43.0-75.0 [facility] Comment on above: Performed By: #### C BC ####[facility] Egggereqon[address] [place] [phone]. Garima Heraclio Platelet mean volume (Bld) [Entitic vol] 8.7 fL Critically low 9.5-13.5 [facility] Comment on above: Performed By: #### C BC ####[facility] [address] [place], [place] [id number]. Garima Heraclio PLT 195 103/ul Normal 150-450 [facility] Comment on above: Performed By: #### C BC ####[facility] Engtxzupun23[address] [place] [phone]. Garima Pulliam RBC 4.64 106/ul Critically low 4.70-6.10 [facility] Comment on above: Performed By: #### C BC ####[facility] Xzemaepzsy[address] [place] [address]Dr. Garima Pulliam WBC 8.6 103/ul Normal 4.0-11.0 [facility] Comment on above: Performed By: #### C BC ####[facility] Hhhxslwtxi[address] [place] [address]Dr. Garima Pulliam PROF CHEM 8 (BAS METB)on Anion gap [Moles/Vol] 6.7 mmol/L Normal [facility] Comment on above: Performed By: #### B ASSOCIATE SOFTWARE DEVELOPER, BMP, HSTROPN ####[facility] Seezzltfyr[address] [place] [address]Dr. Garima Pulliam Calcium [Mass/Vol] 8.8 mg/dL Normal 8.5-10.1 [facility] Comment on above: Performed By: #### B ASSOCIATE SOFTWARE DEVELOPER, BMP, HSTROPN ####[facility] Cdknrotcui[address] [place], [place] [address]Dr. Garima Pulliam Chloride [Moles/Vol] 106 mmol/L Normal 98-107 [facility] Comment on above: Performed By: #### B ASSOCIATE SOFTWARE DEVELOPER, BMP, HSTROPN ####[facility] Ariebclgsa[address] [place], [place] [address]Dr. Garima Pulliam CO2 [Moles/Vol] 31.4 mmol/L Normal 21.0-32.0 [facility] Comment on above: Performed By: #### B ASSOCIATE SOFTWARE DEVELOPER, BMP, HSTROPN ####[facility] Vtwgnrmmfk[address] [place], [place] [address]Dr. Garima Pulliam Creatinine [Mass/Vol] 0.75 mg/dL Normal 0.70-1.30 [facility] Comment on above: Performed By: #### B ASSOCIATE SOFTWARE DEVELOPER, BMP, HSTROPN ####[facility] K[address]ftrainu[address] [place] [address]Dr. Garima Pulliam EGFR-AF JAPANESE >60 Normal >=60 [facility] Comment on above: Performed By: #### B ASSOCIATE SOFTWARE DEVELOPER, BMP, HSTROPN ####[facility] [address]krfsqc66[address] [place] [address]Dr. Garima Pulliam EGFR-NON AF JAPANESE >60 Normal >=60 [facility] Comment on above: Performed By: #### B ASSOCIATE SOFTWARE DEVELOPER, BMP, HSTROPN ####[facility] Siytduxkom[address] [place] [address]Dr. Garima Pulliam Glucose [Mass/Vol] 161 mg/dL Critically high 74-106 [facility] Comment on above: Performed By: #### B ASSOCIATE SOFTWARE DEVELOPER, BMP, HSTROPN ####[facility] Irwxqughup[address] [place] [address]Dr. Garima Pulliam Potassium [Moles/Vol] 4.1 mmol/L Normal 3.5-5.1 [facility] Comment on above: Performed By: #### B ASSOCIATE SOFTWARE DEVELOPER, BMP, HSTROPN ####[facility] Jmiomrwimb[address] [place] [address]Dr. Garima Pulliam Sodium [Moles/Vol] 140 mmol/L Normal 136-145 [facility] Comment on above: Performed By: #### B ASSOCIATE SOFTWARE DEVELOPER, BMP, HSTROPN ####[facility] [address]ec[address]fplunr[address] [place] [address]Dr. Garima Pulliam Urea nitrogen [Mass/Vol] 7.0 mg/dL Normal 7.0-18.0 [facility] Comment on above: Performed By: #### B ASSOCIATE SOFTWARE DEVELOPER, BMP, HSTROPN ####[facility] U[address]auxbmmg[address] [place] [address]Dr. Garima Pulliam Urea nitrogen/Creatinine [Mass ratio] 9.3 mg/mg Normal [facility] Comment on above: Performed By: #### B ASSOCIATE SOFTWARE DEVELOPER, BMP, HSTROPN ####[facility] [address] [place] [address]Dr. Garima Pulliam TROPONIN, HIGH SENSITIVITYon 03-16-2023 HSTROP 9.7 pg/mL Normal 4.0-76.1 [facility] Comment on above: Result Comment: CUT- OFF POINTS HAVE BEEN ESTABLISHED BASED ON THE FOURTH UNIVERSAL DEFINITIONS OF MYOCARDIALINFARCTION. THE UPPER REFERENCE LIMIT (URL) OF TROPONIN, DEFINED THE 99TH PERCENTILE OFcTnI DISTRIBUTION IN A REFERENCE POPULATION, HAS BEEN CONFIRMED THE DECISION THRESHOLDFOR MT DIAGNOSIS. Performed By: #### B ASSOCIATE SOFTWARE DEVELOPER, BMP, HSTROPN ####[facility] [address]qjldstl[address] [place] [address]Dr. Garima Pulliam XR CHEST 1 Von 03-16-2023 XR CHEST 1 V Normal [facility] BNPon 03-06-2023 Natriuretic peptide B (Bld) [Mass/Vol] 111.0 pg/mL Normal <=900.0 [facility] Comment on above: Performed By: #### C MP, BNP, CK ####[facility] Pisribhgmh[address] [place] [address]Dr. Chapisrenu Pulliam CBC AUTO DIFFon 03-06-2023 BASO # 0.0 103/ul Normal 0.0-0.1 [facility] Comment on above: Performed By: #### C BC ####[facility] Wvyrnhphxd[address] [place], [place] [address]Dr. Garima Pulliam Basophils/100 WBC (Bld) 0.2 % Normal 0.2-2.0 [facility] Comment on above: Performed By: #### C BC ####[facility] Kojsavvywr[address] [place], [place] [address]Dr. Garima Pulliam EO # 0.3 103/ul Normal 0.0-0.7 [facility] Comment on above: Performed By: #### C BC ####[facility] Pevgmljgft[address] [place], [place] [address]Dr. Garima Pulliam Eosinophils/100 WBC (Bld) 3.5 % Normal 0.9-7.0 [facility] Comment on above: Performed By: #### C BC ####[facility] Ayxfrrhscu[address] [place], [place] [address]Dr. Garima Pulliam Erythrocyte distribution width (RBC) [Ratio] 13.3 % Normal 11.0-15.0 [facility] Comment on above: Performed By: #### C BC ####[facility] Poubxcazxl[address] [place], [place] [address]Dr. Garima Pulliam Hematocrit (Bld) [Volume fraction] 43.7 % Normal 42.0-54.0 [facility] Comment on above: Performed By: #### C BC ####[facility] Pwvowbpsxt7[address] [place] [address]Dr. Garima Pulliam Hemoglobin (Bld) [Mass/Vol] 14.7 g/dL Normal 14.0-18.0 [facility] Comment on above: Performed By: #### C BC ####[facility] Eufxggnsmh[address] [place] [address]Dr. Chapisrenu Heraclio IG # 0.03 10e3/ul Normal 0.00-0.03 [facility] Comment on above: Performed By: #### C BC ####[facility] Ievdvdndcu[address] [place], [place] [address]Dr. Garima Pulliam IG % 0.4 % Normal 0.0-0.5 [facility] Comment on above: Performed By: #### C BC ####[facility] Lryytdcpsi4[address] [place], [place] [address]Dr. Garima Pulliam LYMPH # 2.0 103/ul Normal 1.2-3.8 [facility] Comment on above: Performed By: #### C BC ####[facility] Zfyyiniqss[address] [place], [place] [address]DrAdalberto Pulliam Lymphocytes/100 WBC (Bld) 23.7 % Normal 20.5-60.0 [facility] Comment on above: Performed By: #### C BC ####[facility] Krvkmixxlr40[address] [place] [address]Dr. Garima Pulliam MANUAL DIFF REQ NO Normal [facility] Comment on above: Performed By: #### C BC ####[facility] Pgvnwcdwet[address] [place] [phone] Pulliam MCH (RBC) [Entitic mass] 30.1 pg Normal 25.9-34.0 [facility] Comment on above: Performed By: #### C BC ####[facility] Yclncgiuez9484 [place] [phone]. Garima Pulliam MCHC (RBC) [Mass/Vol] 33.6 g/dL Normal 29.9-35.2 [facility] Comment on above: Performed By: #### C BC ####[facility] Acrjsoedgc[address] [place] [address]Dr. Garima Heraclio MCV (RBC) [Entitic vol] 89.4 fL Normal 80.0-94.0 [facility] Comment on above: Performed By: #### C BC ####[facility] Uobtgiopyh[address] [place] [address]Dr. Garima Pulliam MONO # 0.8 103/ul Normal 0.3-0.8 [facility] Comment on above: Performed By: #### C BC ####[facility] Ujaqnppbde94[address] [place] [address]Dr. Garima Pulliam Monocytes/100 WBC (Bld) 9.0 % Normal 1.7-12.0 [facility] Comment on above: Performed By: #### C BC ####[facility] Wvfanowrlc[address] [place], [place] [address]Dr. Garima Pulliam NEUT # 5.4 103/ul Normal 1.4-6.5 [facility] Comment on above: Performed By: #### C BC ####[facility] Uvvsuikqxs[address] [place], [place] [address]Dr. Garima Pulliam Neutrophils/100 WBC (Bld) 63.2 % Normal 43.0-75.0 [facility] Comment on above: Performed By: #### C BC ####[facility] F[address]qxbxlxw[address] [place], [place] [address]Dr. Garima Pulliam Platelet mean volume (Bld) [Entitic vol] 9.0 fL Critically low 9.5-13.5 [facility] Comment on above: Performed By: #### C BC ####[facility] Ejsbyeyxes[address] [place], [place] [address]Dr. Garima Pulliam PLT 218 103/ul Normal 150-450 [facility] Comment on above: Performed By: #### C BC ####[facility] Ramemkaclr[address] [place] [phone]. Garima Pulliam RBC 4.89 106/ul Normal 4.70-6.10 [facility] Comment on above: Performed By: #### C BC ####[facility] Munzqmrfnh[address] [place] [address]Dr. Garima Pulliam WBC 8.5 103/ul Normal 4.0-11.0 [facility] Comment on above: Performed By: #### C BC ####[facility] Afginzupss[address] [place] [address]Dr. Garima Pulliam CPKon 03-06-2023 CK [Catalytic activity/Vol] 191 U/L Normal 39-308 [facility] Comment on above: Performed By: #### C MP, BNP, CK ####[facility] Tpxawgcrvj[address] [place] [address]Dr. Garima Pulliam PROF 14(COMP METB)on 023 Albumin [Mass/Vol] 3.6 g/dL Normal 3.4-5.0 [facility] Comment on above: Performed By: #### C MP, BNP, CK ####[facility] Sghapqysni4[address] [place] [address]Dr. Garima Pulliam Albumin/Globulin [Mass ratio] 1.2 {ratio} Normal [facility] Comment on above: Performed By: #### C MP, BNP, CK ####[facility] Ammvpmcgpu[address] [place] [address]Dr. Garima Pulliam ALP [Catalytic activity/Vol] 91 U/L Normal 46-116 [facility] Comment on above: Performed By: #### C MP, BNP, CK ####[facility] Osksvfllhg5[address] [place] [address]Dr. Garima Pulliam ALT [Catalytic activity/Vol] 33 U/L Normal 16-63 [facility] Comment on above: Performed By: #### C MP, BNP, CK ####[facility] Ailuijkwim[address] [place] [address]Dr. Garima Pulliam Anion gap [Moles/Vol] 10.3 mmol/L Normal [facility] Comment on above: Performed By: #### C MP, BNP, CK ####[facility] Hndwhauifg[address] [place] [address]Dr. Garima Pulliam AST [Catalytic activity/Vol] 17 U/L Normal 15-37 [facility] Comment on above: Performed By: #### C MP, BNP, CK ####[facility] Qqrkdrslzp2624 [place] [address]Dr. Garima Pulliam Bilirubin [Mass/Vol] 0.4 mg/dL Normal 0.2-1.0 [facility] Comment on above: Performed By: #### C MP, BNP, CK ####[facility] Cqwrwehlsg24[address] [place] [address]Dr. Garima Pulliam Calcium [Mass/Vol] 9.1 mg/dL Normal 8.5-10.1 [facility] Comment on above: Performed By: #### C MP, BNP, CK ####[facility] Krmocvestn[address] [place] [address]Dr. Garima Pulliam Chloride [Moles/Vol] 102 mmol/L Normal 98-107 [facility] Comment on above: Performed By: #### C MP, BNP, CK ####[facility] Wplidigttk27[address] [place] [address]Dr. Garima Pulliam CO2 [Moles/Vol] 29.7 mmol/L Normal 21.0-32.0 [facility] Comment on above: Performed By: #### C MP, BNP, CK ####[facility] Ttcbeqeyzg[address] [place] [address]Dr. Garima Pulliam Creatinine [Mass/Vol] 0.79 mg/dL Normal 0.70-1.30 [facility] Comment on above: Performed By: #### C MP, BNP, CK ####[facility] Fqcpwyaqsm[address] [place] [address]Dr. Garima Pulliam EGFR-AF JAPANESE >60 Normal >=60 [facility] Comment on above: Performed By: #### C MP, BNP, CK ####[facility] Pdwyrbsyej73[address] [place] [address]Dr. Garima Pulliam EGFR-NON AF JAPANESE >60 Normal >=60 [facility] Comment on above: Performed By: #### C MP, BNP, CK ####[facility] Lhpwvzqvxi9[address] [place] [address]Dr. Garima Pulliam Globulin (S) [Mass/Vol] 3.0 g/dL Normal [facility] Comment on above: Performed By: #### C MP, BNP, CK ####[facility] Pushfazyop[address] [place] [address]Dr. Garima Pulliam Glucose [Mass/Vol] 202 mg/dL Critically high 74-106 [facility] Comment on above: Performed By: #### C MP, BNP, CK ####[facility] Qifbvhakth1644 [place] [address]Dr. Garima Pulliam Potassium [Moles/Vol] 4.0 mmol/L Normal 3.5-5.1 [facility] Comment on above: Performed By: #### C MP, BNP, CK ####[facility] Srelgbtdlp[address] [place] [address]Dr. Garima Pulliam Protein [Mass/Vol] 6.6 g/dL Normal 6.4-8.2 [facility] Comment on above: Performed By: #### C MP, BNP, CK ####[facility] Xdnnadenlf[address] [place], [place] [address]Dr. Garima Pulliam Sodium [Moles/Vol] 138 mmol/L Normal 136-145 [facility] Comment on above: Performed By: #### C MP, BNP, CK ####[facility] Onuqdrrdke[address] [place], [place] [address]Dr. Garima Pulliam Urea nitrogen [Mass/Vol] 10.0 mg/dL Normal 7.0-18.0 [facility] Comment on above: Performed By: #### C MP, BNP, CK ####[facility] Xythqmusdw0734 [place] [address]Dr. Garima Pulliam Urea nitrogen/Creatinine [Mass ratio] 12.7 mg/mg Normal [facility] Comment on above: Performed By: #### C MP, BNP, CK ####[facility] Yljcgllarn[address] [place] [address]Dr. Garima Pulliam US VERONICA DOP LEG BILon 023 US VERONICA DOP LEG BENOIT Normal [facility] CBC AUTO DIFFon 01-13-2023 BASO # 0.0 103/ul Normal 0.0-0.1 [facility] Comment on above: Performed By: #### C BC ####[facility] Uvoajpggwx28[address] [place] [id number]. Chapisrenu Pulliam Basophils/100 WBC (Bld) 0.0 % Critically low 0.2-2.0 [facility] Comment on above: Performed By: #### C BC ####[facility] Gviqqwgmbh33[address] [place] [address]Dr. Garima Pulliam EO # 0.0 103/ul Normal 0.0-0.7 [facility] Comment on above: Performed By: #### C BC ####[facility] Wfsfbisloq[address] [place], [place] [address]Dr. Garima Pulliam Eosinophils/100 WBC (Bld) 0.0 % Critically low 0.9-7.0 [facility] Comment on above: Performed By: #### C BC ####[facility] Wwxqabvrkx3892 [place] [address]Dr. Garima Pulliam Erythrocyte distribution width (RBC) [Ratio] 13.2 % Normal 11.0-15.0 [facility] Comment on above: Performed By: #### C BC ####[facility] Lkrzqzmbkh[address] [place], [place] [address]Dr. Garima Pulliam Hematocrit (Bld) [Volume fraction] 46.7 % Normal 42.0-54.0 [facility] Comment on above: Performed By: #### C BC ####[facility] [address]jtdeecpcy[address] [place], [place] [address]Dr. Garima Pulliam Hemoglobin (Bld) [Mass/Vol] 15.6 g/dL Normal 14.0-18.0 [facility] Comment on above: Performed By: #### C BC ####[facility] Izmxjkjuwr[address] [place], [place] [address]Dr. Garima Pulliam IG # 0.01 10e3/ul Normal 0.00-0.03 [facility] Comment on above: Performed By: #### C BC ####[facility] Mdhdbpoqbo9073 [place] [id number]. Garima Pulliam IG % 0.2 % Normal 0.0-0.5 [facility] Comment on above: Performed By: #### C BC ####[facility] Obbnfpvvsy6078 [place] [phone]. Garima Pulliam LYMPH # 0.8 103/ul Critically low 1.2-3.8 [facility] Comment on above: Performed By: #### C BC ####[facility] Zlvsakztgh1513 [place] [phone]. Garima Pulliam Lymphocytes/100 WBC (Bld) 12.7 % Critically low 20.5-60.0 [facility] Comment on above: Performed By: #### C BC ####[facility] Rozfhtkufq74[address] [place] [address]Dr. Garima Pulliam MANUAL DIFF REQ NO Normal [facility] Comment on above: Performed By: #### C BC ####[facility] Rrkcxwbkga1569 [place] [phone]. Garima Pulliam MCH (RBC) [Entitic mass] 30.2 pg Normal 25.9-34.0 [facility] Comment on above: Performed By: #### C BC ####[facility] Jeydnhergs[address] [place] [phone]. Garima Pulliam MCHC (RBC) [Mass/Vol] 33.4 g/dL Normal 29.9-35.2 [facility] Comment on above: Performed By: #### C BC ####[facility] Qfjoegparm6123 [place] [phone]. Garima Pulliam MCV (RBC) [Entitic vol] 90.3 fL Normal 80.0-94.0 [facility] Comment on above: Performed By: #### C BC ####[facility] Oeymhtevax9432 [place] [phone]. Garima Heraclio MONO # 0.1 103/ul Critically low 0.3-0.8 [facility] Comment on above: Performed By: #### C BC ####[facility] Nsijrgsxub6825 [place] [phone]. Garima Pulliam Monocytes/100 WBC (Bld) 0.9 % Critically low 1.7-12.0 [facility] Comment on above: Performed By: #### C BC ####[facility] Louhiohyay4[address] [place] [id number]. Garima Pulliam NEUT # 5.6 103/ul Normal 1.4-6.5 [facility] Comment on above: Performed By: #### C BC ####[facility] Ptyvfunhkq7371 [place] [phone]. Garima Pulliam Neutrophils/100 WBC (Bld) 86.2 % Critically high 43.0-75.0 [facility] Comment on above: Performed By: #### C BC ####[facility] Modyqsipad[address] [place] [address]Dr. Garima Pulliam Platelet mean volume (Bld) [Entitic vol] 9.1 fL Critically low 9.5-13.5 [facility] Comment on above: Performed By: #### C BC ####[facility] Ivugggrzmm[address] [place], [place] [address]Dr. Garima Pulliam PLT 169 103/ul Normal 150-450 [facility] Comment on above: Performed By: #### C BC ####[facility] Ksyryexfhk[address] [place], [place] [address]Dr. Garima Pulliam RBC 5.17 106/ul Normal 4.70-6.10 [facility] Comment on above: Performed By: #### C BC ####[facility] H[address] [place], [place] [id number]. Garima Pulliam WBC 6.5 103/ul Normal 4.0-11.0 [facility] Comment on above: Performed By: #### C BC ####[facility] Eegsspezyh[address] [place], [place] [address]Dr. Garima Pulliam D-DIMERon 01-13-2023 D-DIMER 0.41 mg/L FEU Normal <=0.59 [facility] Comment on above: Performed By: #### D DIM ####[facility] [address] [place] [address]Dr. Garima Pulliam D-DIMER COMMENTS SEE BELOW Normal [facility] Comment on above: Result Comment: Incr [...] generalized hospitalization. Performed By: #### D DIM ####[facility] Dwkgozfwrf[address] [place], [place] [address]Dr. Garima Pulliam PROF 14(COMP METB)on 023 Albumin [Mass/Vol] 3.4 g/dL Normal 3.4-5.0 [facility] Comment on above: Performed By: #### C MP ####[facility] Eazdxpqtlb[address] [place], [place] [address]Dr. Garima Pulliam Albumin/Globulin [Mass ratio] 1.3 {ratio} Normal [facility] Comment on above: Performed By: #### C MP ####[facility] Fkhtdxjepp69[address] [place], [place] [address]Dr. Garima Pulliam ALP [Catalytic activity/Vol] 83 U/L Normal 46-116 [facility] Comment on above: Performed By: #### C MP ####[facility] Muxbxqxyts69[address] [place], [place] [address]Dr. Garima Pulliam ALT [Catalytic activity/Vol] 25 U/L Normal 16-63 [facility] Comment on above: Performed By: #### C MP ####[facility] [address] [place] [address]Dr. Garima Pulliam Anion gap [Moles/Vol] 14.5 mmol/L Normal [facility] Comment on above: Performed By: #### C MP ####[facility] Dyxevhhmhm8[address] [place], [place] [address]Dr. Garima Pulliam AST [Catalytic activity/Vol] 19 U/L Normal 15-37 [facility] Comment on above: Performed By: #### C MP ####[facility] Krqmebctis9[address] [place], [place] [address]Dr. Garima Pulliam Bilirubin [Mass/Vol] 0.4 mg/dL Normal 0.2-1.0 [facility] Comment on above: Performed By: #### C MP ####[facility] Unoconakwz7935[address] [place], [place] [address]Dr. Garima Pulliam Calcium [Mass/Vol] 8.7 mg/dL Normal 8.5-10.1 [facility] Comment on above: Performed By: #### C MP ####[facility] Gxunzncrws027[address] [place], [place] [address]Dr. Garima Pulliam Chloride [Moles/Vol] 104 mmol/L Normal 98-107 [facility] Comment on above: Performed By: #### C MP ####[facility] Brxiaqlahk4[address] [place], [place] [address]Dr. Garima Pulliam CO2 [Moles/Vol] 24.5 mmol/L Normal 21.0-32.0 [facility] Comment on above: Performed By: #### C MP ####[facility] Vxprujzlab[address] [place], [place] [address]Dr. Garima Pulliam Creatinine [Mass/Vol] 0.70 mg/dL Normal 0.70-1.30 [facility] Comment on above: Performed By: #### C MP ####[facility] Tqlfwlzdrr77[address] [place], [place] [address]Dr. Garima Heraclio EGFR-AF JAPANESE >60 Normal >=60 [facility] Comment on above: Performed By: #### C MP ####[facility] Uzjsikodwy56[address] [place], [place] [address]Dr. Chapisrenu Heraclio EGFR-NON AF JAPANESE >60 Normal >=60 [facility] Comment on above: Performed By: #### C MP ####[facility] Ouhtlumrlg[address] [place], [place] [address]Dr. Chapisrenu Pulliam Globulin (S) [Mass/Vol] 2.6 g/dL Normal [facility] Comment on above: Performed By: #### C MP ####[facility] S[address]zw[address]yenuq[address] [place] [address]Dr. Garima Pulliam Glucose [Mass/Vol] 196 mg/dL Critically high 74-106 [facility] Comment on above: Performed By: #### C MP ####[facility] Jpwontodzg[address] [place] [address]Dr. Garima Pulliam Potassium [Moles/Vol] 4.0 mmol/L Normal 3.5-5.1 [facility] Comment on above: Performed By: #### C MP ####[facility] Gmkvpnyrqz58[address] [place] [address]Dr. Garima Pulliam Protein [Mass/Vol] 6.0 g/dL Critically low 6.4-8.2 [facility] Comment on above: Performed By: #### C MP ####[facility] Szcsadcxsk[address] [place], [place] [address]Dr. Garima Pulliam Sodium [Moles/Vol] 139 mmol/L Normal 136-145 [facility] Comment on above: Performed By: #### C MP ####[facility] Smvvaeutll8164[address] [place], [place] [address]Dr. Garima Pulliam Urea nitrogen [Mass/Vol] 7.0 mg/dL Normal 7.0-18.0 [facility] Comment on above: Performed By: #### C MP ####[facility] Muqkygzrtj62[address] [place], [place] [address]Dr. Garima Heraclio Urea nitrogen/Creatinine [Mass ratio] 10.0 mg/mg Normal [facility] Comment on above: Performed By: #### C MP ####[facility] Oxkfidnzki[address] [place], [place] [address]Dr. Garima Heraclio BNPon 01-12-2023 Natriuretic peptide B (Bld) [Mass/Vol] 141.0 pg/mL Normal <=900.0 [facility] Comment on above: Performed By: #### C MP, BNP, HSTROPN ####[facility] Vpnrqhudlh4[address] [place], [place] [address]Dr. Garima Heraclio CBC AUTO DIFFon 01-12-2023 BASO # 0.0 103/ul Normal 0.0-0.1 [facility] Comment on above: Performed By: #### C BC ####[facility] [address] [place] [id number]. Garima Heraclio Basophils/100 WBC (Bld) 0.2 % Normal 0.2-2.0 [facility] Comment on above: Performed By: #### C BC ####[facility] Rtuvorwnjn[address] [place] [address]Dr. Garima Heraclio EO # 0.2 103/ul Normal 0.0-0.7 [facility] Comment on above: Performed By: #### C BC ####[facility] Eqfcnyktfk76[address] [place] [address]Dr. Garima Heraclio Eosinophils/100 WBC (Bld) 2.7 % Normal 0.9-7.0 [facility] Comment on above: Performed By: #### C BC ####[facility] Jwsztkudyn78[address] [place], [place] [address]Dr. Garima Pulliam Erythrocyte distribution width (RBC) [Ratio] 13.3 % Normal 11.0-15.0 [facility] Comment on above: Performed By: #### C BC ####[facility] Sdlamhjvdy[address] [place], [place] [address]Dr. Garima Pulliam Hematocrit (Bld) [Volume fraction] 42.3 % Normal 42.0-54.0 [facility] Comment on above: Performed By: #### C BC ####[facility] Bmjujwhmxw[address] [place], [place] [address]Dr. Garima Pulliam Hemoglobin (Bld) [Mass/Vol] 14.3 g/dL Normal 14.0-18.0 [facility] Comment on above: Performed By: #### C BC ####[facility] Ytgqyugezx[address] [place], [place] [address]Dr. Garima Pulliam IG # 0.02 10e3/ul Normal 0.00-0.03 [facility] Comment on above: Performed By: #### C BC ####[facility] [address]zrjfwm[address] [place] [phone]. Garima Pulliam IG % 0.2 % Normal 0.0-0.5 [facility] Comment on above: Performed By: #### C BC ####[facility] D[address]ildyauzw[address] [place] [phone]. Garima Pulliam LYMPH # 2.6 103/ul Normal 1.2-3.8 [facility] Comment on above: Performed By: #### C BC ####[facility] Pxerqljbow7[address] [place] [phone]. Garima Heraclio Lymphocytes/100 WBC (Bld) 29.6 % Normal 20.5-60.0 [facility] Comment on above: Performed By: #### C BC ####[facility] [address] [place] [address]Dr. Garima Heraclio MANUAL DIFF REQ NO Normal [facility] Comment on above: Performed By: #### C BC ####[facility] St[address]gou39[address] [place] [phone]. Garima Pulliam MCH (RBC) [Entitic mass] 30.2 pg Normal 25.9-34.0 [facility] Comment on above: Performed By: #### C BC ####[facility] X[address]wivspcg69[address] [place] [address]Dr. Garima Pulliam MCHC (RBC) [Mass/Vol] 33.8 g/dL Normal 29.9-35.2 [facility] Comment on above: Performed By: #### C BC ####[facility] [address]erm[address] [place] [phone]. Garima Pulliam MCV (RBC) [Entitic vol] 89.2 fL Normal 80.0-94.0 [facility] Comment on above: Performed By: #### C BC ####[facility] Iijimhbkel[address] [place], [place] [address]Dr. Chapisrenu Pulliam MONO # 0.7 103/ul Normal 0.3-0.8 [facility] Comment on above: Performed By: #### C BC ####[facility] C[address]oiwzsw[address] [place] [id number]. Garima Pulliam Monocytes/100 WBC (Bld) 8.3 % Normal 1.7-12.0 [facility] Comment on above: Performed By: #### C BC ####[facility] Jrqgiofeqz25[address] [place] [phone]. Garima Pulliam NEUT # 5.1 103/ul Normal 1.4-6.5 [facility] Comment on above: Performed By: #### C BC ####[facility] S[address]wtijew[address] [place] [phone]. Garima Pulliam Neutrophils/100 WBC (Bld) 59.0 % Normal 43.0-75.0 [facility] Comment on above: Performed By: #### C BC ####[facility] Pdmmigbulk[address] [place] [address]Dr. Garima Pulliam Platelet mean volume (Bld) [Entitic vol] 8.7 fL Critically low 9.5-13.5 [facility] Comment on above: Performed By: #### C BC ####[facility] Q[address]xiqomf[address] [place] [address]Dr. Garima Pulliam PLT 182 103/ul Normal 150-450 [facility] Comment on above: Performed By: #### C BC ####[facility] Wat[address]zd[address]iu[address] [place] [phone]. Garima Pulliam RBC 4.74 106/ul Normal 4.70-6.10 [facility] Comment on above: Performed By: #### C BC ####[facility] [address] [place], [place] [address]Dr. Garima Pulliam WBC 8.7 103/ul Normal 4.0-11.0 [facility] Comment on above: Performed By: #### C BC ####[facility] Vfgklffeso[address] [place], [place] [address]Dr. Garima Pulliam Covid-19 PCR (CVDTB)on 12-25 SARS-CoV-2 (COVID-19) RNA MARIE+probe Ql (Unsp spec) Not detected Normal NOT DETECTED [facility] Comment on above: Result Comment: When [...] for this test is supported by the Draw Bench Operator of Health and Human Service's declaration [...] be used). Performed By: #### C VDTBH ####[facility] [address]ons[address] [place] [address]Dr. Garima Pulliam PROF 14(COMP METB)on 023 Albumin [Mass/Vol] 3.6 g/dL Normal 3.4-5.0 [facility] Comment on above: Performed By: #### C MP, BNP, HSTROPN ####[facility] [address] [place] [address]Dr. Garima Pulliam Albumin/Globulin [Mass ratio] 1.5 {ratio} Normal [facility] Comment on above: Performed By: #### C MP, BNP, HSTROPN ####[facility] Dmbemguvsv37[address] [place] [address]Dr. Garima Pulliam ALP [Catalytic activity/Vol] 79 U/L Normal 46-116 [facility] Comment on above: Performed By: #### C MP, BNP, HSTROPN ####[facility] Kbynxyjkez7[address] [place] [address]Dr. Garima Pulliam ALT [Catalytic activity/Vol] 27 U/L Normal 16-63 [facility] Comment on above: Performed By: #### C MP, BNP, HSTROPN ####[facility] Yntrwshbyw7[address] [place] [address]Dr. Garima Pulliam Anion gap [Moles/Vol] 11.7 mmol/L Normal Th [facility] Comment on above: Performed By: #### C MP, BNP, HSTROPN ####[facility] Gtxxobzvrk[address] [place] [address]Dr. Garima Pulliam AST [Catalytic activity/Vol] 21 U/L Normal 15-37 [facility] Comment on above: Performed By: #### C MP, BNP, HSTROPN ####[facility] Icc[address]wuno[address] [place] [address]Dr. Garima Pulliam Bilirubin [Mass/Vol] 0.3 mg/dL Normal 0.2-1.0 [facility] Comment on above: Performed By: #### C MP, BNP, HSTROPN ####[facility] Tc[address]gcoj4[address] [place] [address]Dr. Garima Pulliam Calcium [Mass/Vol] 8.9 mg/dL Normal 8.5-10.1 [facility] Comment on above: Performed By: #### C MP, BNP, HSTROPN ####[facility] Zffndlfzet[address] [place] [address]Dr. Garima Pulliam Chloride [Moles/Vol] 107 mmol/L Normal 98-107 [facility] Comment on above: Performed By: #### C MP, BNP, HSTROPN ####[facility] Tixt[address]wvme[address] [place] [address]Dr. Garima Pulliam CO2 [Moles/Vol] 26.0 mmol/L Normal 21.0-32.0 [facility] Comment on above: Performed By: #### C MP, BNP, HSTROPN ####[facility] Bfgujivgqk6[address] [place] [address]Dr. Garima Pulliam Creatinine [Mass/Vol] 0.65 mg/dL Critically low 0.70-1.30 [facility] Comment on above: Performed By: #### C MP, BNP, HSTROPN ####[facility] Rh[address]rqkgz[address] [place] [address]Dr. Yilan Pulliam EGFR-AF JAPANESE >60 Normal >=60 [facility] Comment on above: Performed By: #### C MP, BNP, HSTROPN ####[facility] [address]lw[address] [place] [address]Dr. Garima Pulliam EGFR-NON AF JAPANESE >60 Normal >=60 [facility] Comment on above: Performed By: #### C MP, BNP, HSTROPN ####[facility] H[address]ytqxezt[address] [place] [address]Dr. Garima Pulliam Globulin (S) [Mass/Vol] 2.4 g/dL Normal [facility] Comment on above: Performed By: #### C MP, BNP, HSTROPN ####[facility] S[address]goohyba[address] [place], [place] [address]Dr. Garima Pulliam Glucose [Mass/Vol] 85 mg/dL Normal 74-106 [facility] Comment on above: Performed By: #### C MP, BNP, HSTROPN ####[facility] Ueayojzvtr[address] [place] [address]Dr. Garima Pulliam Potassium [Moles/Vol] 3.7 mmol/L Normal 3.5-5.1 [facility] Comment on above: Performed By: #### C MP, BNP, HSTROPN ####[facility] Jvrgshnool[address] [place] [address]Dr. Garima Pulliam Protein [Mass/Vol] 6.0 g/dL Critically low 6.4-8.2 [facility] Comment on above: Performed By: #### C MP, BNP, HSTROPN ####[facility] Iwvqasnrzo[address] [place] [address]Dr. Garima Pulliam Sodium [Moles/Vol] 141 mmol/L Normal 136-145 [facility] Comment on above: Performed By: #### C MP, BNP, HSTROPN ####[facility] Ntcqditekb62[address] [place] [address]Dr. Garima Pulliam Urea nitrogen [Mass/Vol] 5.0 mg/dL Critically low 7.0-18.0 [facility] Comment on above: Performed By: #### C MP, BNP, HSTROPN ####[facility] Zetqheacng[address] [place] [address]Dr. Garima Pulliam Urea nitrogen/Creatinine [Mass ratio] 7.7 mg/mg Normal [facility] Comment on above: Performed By: #### C MP, BNP, HSTROPN ####[facility] Cet[address]fyiuo[address] [place] [address]Dr. Garima Pulliam PROTIMEon 01-12-2023 INR Coag (PPP) [Relative time] 1.16 {INR} Normal [facility] Comment on above: Performed By: #### P TT, PT ####[facility] Tujontaxsm[address] [place] [address]Dr. Garima Pulliam INR GUIDELINES SEE BELOW Normal [facility] Comment on above: Result Comment: WESLEY RED INR: 2.0 - 3.0 CONDITIONS NOT LISTED BELOW 2.5 - 3.5 FOR PROSTHETIC HEART VALVE REPLACEMENT 2.5 - 3.5 RECURRENT THROMBOSIS Performed By: #### P TT, PT ####[facility] I[address]ocwwuhl[address] [place], [place] [address]Dr. Garima Pulliam PT Coag (PPP) [Time] 12.2 s Critically high 9.0-11.6 [facility] Comment on above: Performed By: #### P TT, PT ####[facility] Jsbellcnvm[address] [place] [address]Dr. Garima Pulliam PTTon 01-12-2023 aPTT Coag (Bld) [Time] 29.1 s Normal 22.3-36.2 [facility] Comment on above: Performed By: #### P TT, PT ####[facility] Uqhc[address]isyz[address] [place], [place] [address]Dr. Garima Pulliam TROPONIN, HIGH SENSITIVITYon 01-12-2023 HSTROP 10.3 pg/mL Normal 4.0-76.1 [facility] Comment on above: Result Comment: CUT- OFF POINTS HAVE BEEN ESTABLISHED BASED ON THE FOURTH UNIVERSAL DEFINITIONS OF MYOCARDIALINFARCTION. THE UPPER REFERENCE LIMIT (URL) OF TROPONIN, DEFINED THE 99TH PERCENTILE OFcTnI DISTRIBUTION IN A REFERENCE POPULATION, HAS BEEN CONFIRMED THE DECISION THRESHOLDFOR MT DIAGNOSIS. Performed By: #### H STROPN ####[facility] K[address]jlwmb[address] [place] [address]Dr. Garima Pulliam HSTROP 9.2 pg/mL Normal 4.0-76.1 [facility] Comment on above: Result Comment: CUT- OFF POINTS HAVE BEEN ESTABLISHED BASED ON THE FOURTH UNIVERSAL DEFINITIONS OF MYOCARDIALINFARCTION. THE UPPER REFERENCE LIMIT (URL) OF TROPONIN, DEFINED THE 99TH PERCENTILE OFcTnI DISTRIBUTION IN A REFERENCE POPULATION, HAS BEEN CONFIRMED THE DECISION THRESHOLDFOR MT DIAGNOSIS. Performed By: #### C MP, BNP, HSTROPN ####[facility] Zh[address] [place] [address]Dr. Garima Pulliam XR CHEST 1 Von 01-12-2023 XR CHEST 1 V Normal [facility] XR CHEST 1 Von 01-01-2023 XR CHEST 1 V Normal [facility] CARDIAC NASH 3-6on 3 CK [Catalytic activity/Vol] 196 U/L Normal 39-308 [facility] Comment on above: Performed By: #### C MREP ####[facility] Bwgytllnrz5[address] [place] [address]Dr. Garima Pulliam CK.MB [Mass/Vol] 7.41 ng/mL Critically high <=3.60 [facility] Comment on above: Performed By: #### C MREP ####[facility] Ocjxvfobjz05[address] [place] [address]Dr. Garima Pulliam HSTROP 10.3 pg/mL Normal 4.0-76.1 [facility] Comment on above: Result Comment: CUT- OFF POINTS HAVE BEEN ESTABLISHED BASED ON THE FOURTH UNIVERSAL DEFINITIONS OF MYOCARDIALINFARCTION. THE UPPER REFERENCE LIMIT (URL) OF TROPONIN, DEFINED THE 99TH PERCENTILE OFcTnI DISTRIBUTION IN A REFERENCE POPULATION, HAS BEEN CONFIRMED THE DECISION THRESHOLDFOR MT DIAGNOSIS. Performed By: #### C MREP ####[facility] [address]aug[address] [place] [phone]. Garima Pulliam XR CHEST 1 Von 12-26-2022 XR CHEST 1 V Normal [facility] BNPon 12-25-2022 Natriuretic peptide B (Bld) [Mass/Vol] 98.0 pg/mL Normal <=900.0 [facility] Comment on above: Performed By: #### B MARVIN FRENCH CMADM ####[facility] Jqwvvramwv32[address] [place] [address]Dr. Garima Pulliam CARDIAC NASH ADMITon 023 CK [Catalytic activity/Vol] 208 U/L Normal 39-308 [facility] Comment on above: Performed By: #### B MARVIN FRENCH CMADM ####[facility] Tixyexndou4[address] [place] [address]Dr. Garima Pulliam CK.MB [Mass/Vol] 7.63 ng/mL Critically high <=3.60 [facility] Comment on above: Performed By: #### B MARVIN FRENCH CMADM ####[facility] I[address]wmawjq[address] [place], [place] [address]Dr. Garima Pulliam HSTROP 8.8 pg/mL Normal 4.0-76.1 [facility] Comment on above: Result Comment: CUT- OFF POINTS HAVE BEEN ESTABLISHED BASED ON THE FOURTH UNIVERSAL DEFINITIONS OF MYOCARDIALINFARCTION. THE UPPER REFERENCE LIMIT (URL) OF TROPONIN, DEFINED THE 99TH PERCENTILE OFcTnI DISTRIBUTION IN A REFERENCE POPULATION, HAS BEEN CONFIRMED THE DECISION THRESHOLDFOR MT DIAGNOSIS. Performed By: #### B MARVIN FRENCH CMADM ####[facility] Acsamqdoyf[address] [place], [place] [address]Dr. Garima Pulliam DORIS 83 ng/mL Normal 16-96 [facility] Comment on above: Performed By: #### B MARVIN FRENCH CMADM ####[facility] Handkzhkzi[address] [place], [place] [address]Dr. Garima Pulliam CBC AUTO DIFFon 12-25-2022 BASO # 0.0 103/ul Normal 0.0-0.1 [facility] Comment on above: Performed By: #### C BC ####[facility] Tnzireplko[address] [place], [place] [address]Dr. Garima Pulliam Basophils/100 WBC (Bld) 0.0 % Critically low 0.2-2.0 [facility] Comment on above: Performed By: #### C BC ####[facility] Mvgmtxigfy7992 [place] [address]Dr. Garima Pulliam EO # 0.0 103/ul Normal 0.0-0.7 [facility] Comment on above: Performed By: #### C BC ####[facility] Rioulgvnkl[address] [place], [place] [address]Dr. Garima Pulliam Eosinophils/100 WBC (Bld) 0.7 % Critically low 0.9-7.0 [facility] Comment on above: Performed By: #### C BC ####[facility] Ksxflwwcnm[address] [place], [place] [address]Dr. Garima Pulliam Erythrocyte distribution width (RBC) [Ratio] 13.4 % Normal 11.0-15.0 [facility] Comment on above: Performed By: #### C BC ####[facility] Y[address]rwzknyv[address] [place], [place] [address]Dr. Garima Pulliam Hematocrit (Bld) [Volume fraction] 42.9 % Normal 42.0-54.0 [facility] Comment on above: Performed By: #### C BC ####[facility] Uzkleomfvy[address] [place], [place] [address]Dr. Garima Pulliam Hemoglobin (Bld) [Mass/Vol] 14.4 g/dL Normal 14.0-18.0 [facility] Comment on above: Performed By: #### C BC ####[facility] Lmneggcnlc[address] [place], [place] [address]Dr. Garima Pulliam IG # 0.00 10e3/ul Normal 0.00-0.03 [facility] Comment on above: Performed By: #### C BC ####[facility] Ozvjdemvxi380[address] [place], [place] [address]Dr. Garima Pulliam IG % 0.0 % Normal 0.0-0.5 [facility] Comment on above: Performed By: #### C BC ####[facility] Kkrppimnti[address] [place], [place] [address]Dr. Garima Pulliam LYMPH # 2.4 103/ul Normal 1.2-3.8 [facility] Comment on above: Performed By: #### C BC ####[facility] Cxhsfheeak9232 [place] [id number]. Chapisrenu Pulliam Lymphocytes/100 WBC (Bld) 29.2 % Normal 20.5-60.0 [facility] Comment on above: Performed By: #### C BC ####[facility] Kldjxexetp6112 [place] [id number]. Garima Pulliam MANUAL DIFF REQ NO Normal [facility] Comment on above: Performed By: #### C BC ####[facility] Wffnpsncza0965 [place] [id number]. Garima Pulliam MCH (RBC) [Entitic mass] 30.7 pg Normal 25.9-34.0 [facility] Comment on above: Performed By: #### C BC ####[facility] Veqkkibrkd[address] [place], [place] [address]Dr. Garima Pulliam MCHC (RBC) [Mass/Vol] 33.6 g/dL Normal 29.9-35.2 [facility] Comment on above: Performed By: #### C BC ####[facility] [address]cy[address]dkkv[address] [place], [place] [address]Dr. Garima Pulliam MCV (RBC) [Entitic vol] 91.5 fL Normal 80.0-94.0 [facility] Comment on above: Performed By: #### C BC ####[facility] Xcgbhuodwg[address] [place], [place] [address]Dr. Garima Pulliam MONO # 0.0 103/ul Critically low 0.3-0.8 [facility] Comment on above: Performed By: #### C BC ####[facility] [address] [place] [address]Dr. Garima Pulliam Monocytes/100 WBC (Bld) 8.0 % Normal 1.7-12.0 [facility] Comment on above: Performed By: #### C BC ####[facility] Mqcmvci[address]zl[address] [place], [place] [address]Dr. Garima Pulliam NEUT # 5.1 103/ul Normal 1.4-6.5 [facility] Comment on above: Performed By: #### C BC ####[facility] Ktxolsbt[address] [place], [place] [address]Sa. Garima Pulliam Neutrophils/100 WBC (Bld) 62.8 % Normal 43.0-75.0 [facility] Comment on above: Performed By: #### C BC ####[facility] Skagtsqyfq38[address] [place], [place] [address]Mi. Garima Pulliam Platelet mean volume (Bld) [Entitic vol] 8.6 fL Critically low 9.5-13.5 [facility] Comment on above: Performed By: #### C BC ####[facility] D[address]zalf[address] [place] [id number]. Garima Pulliam PLT 200 103/ul Normal 150-450 [facility] Comment on above: Performed By: #### C BC ####[facility] Kpeyfidzbt[address] [place] [id number]. Garima Pulliam RBC 4.69 106/ul Critically low 4.70-6.10 [facility] Comment on above: Performed By: #### C BC ####[facility] Adbyyasqhs29[address] [place], [place] [address]Ds. Garima Pulliam WBC 8.2 103/ul Normal 4.0-11.0 [facility] Comment on above: Performed By: #### C BC ####[facility] Egbhcrmzpb5206 [place], [place] [address]Fb. Garima Pulliam [facility]on SARS-CoV-2 (COVID-19) RNA MARIE+probe Ql (Unsp spec) Not detected Normal NOT DETECTED [facility] Comment on above: Result Comment: When [...] for this test is supported by the Draw Bench Operator of Health and Human Service's declaration [...] be used). Performed By: #### C VDTBH ####[facility] Zfgjmbhyul[address] [place], [place] [address]Dr. Garima Pulliam INFLUENZA A AND B AGon 12-25 INFLUANEGH SEE BELOW Normal [facility] Comment on above: Result Comment: Nega tive for Flu A protein angiten. Infection due to Flu A cannot be ruled out. Flu A angiten in the sample may be below the detection limit of the test. Performed By: #### I NFLUAB ####[facility] Vpvhvnczal[address] [place], [place] [address]Dr. Garima Pulliam INFLUBNEGH SEE BELOW Normal [facility] Comment on above: Result Comment: Nega tive for Flu B protein antigen. Infection due to Flu B cannot be ruled out. Flu B antigen in the sample may be below the detection limit of the test. Performed By: #### I NFLUAB ####[facility] Eyddxideji[address] [place], [place] [address]Dr. Garima Pulliam INFLUENZA A AG Negative Normal NEGATIVE SEE COMMENT [facility] Comment on above: Performed By: #### I NFLUAB ####[facility] Uqtfloxvli[address] [place], [place] [address]Dr. renu [facility] INFLUENZA B AG Negative Normal NEGATIVE SEE COMMENT [facility] Comment on above: Performed By: #### I NFLUAB ####[facility] Coipglxgwg[address] [place], [place] [address]Dr. Garima Pulliam PROF CHEM 8 (BAS METB)on Anion gap [Moles/Vol] 11.1 mmol/L Normal Th [facility] Comment on above: Performed By: #### B ASSOCIATE SOFTWARE DEVELOPER, BMP, CMADM ####[facility] Ldvpjeyuvv[address] [place], [place] [address]Dr. Garima Pulliam Calcium [Mass/Vol] 8.5 mg/dL Normal 8.5-10.1 [facility] Comment on above: Performed By: #### B ASSOCIATE SOFTWARE DEVELOPER, MARVIN, CMADM ####[facility] [address]vytkpf[address] [place] [phone]. Garima Pulliam Chloride [Moles/Vol] 106 mmol/L Normal 98-107 [facility] Comment on above: Performed By: #### B ASSOCIATE SOFTWARE DEVELOPER, BMP, CMADM ####[facility] Ymgddingzy[address] [place] [address]Dr. Garima Pulliam CO2 [Moles/Vol] 27.4 mmol/L Normal 21.0-32.0 [facility] Comment on above: Performed By: #### B ASSOCIATE SOFTWARE DEVELOPER, MARVIN, CMADM ####[facility] [address] [place] [address]Dr. Garima Pulliam Creatinine [Mass/Vol] 0.65 mg/dL Critically low 0.70-1.30 [facility] Comment on above: Performed By: #### B ASSOCIATE SOFTWARE DEVELOPER, MARVIN, CMADM ####[facility] Qbiccpyqbe[address] [place] [address]Dr. Garima Pulliam EGFR-AF JAPANESE >60 Normal >=60 [facility] Comment on above: Performed By: #### B ASSOCIATE SOFTWARE DEVELOPER, BMP, CMADM ####[facility] Wxardeojbx34[address] [place] [address]Dr. Garima Pulliam EGFR-NON AF JAPANESE >60 Normal >=60 [facility] Comment on above: Performed By: #### B ASSOCIATE SOFTWARE DEVELOPER, BMP, CMADM ####[facility] Mstnagluhd[address] [place] [address]Dr. Garima Pulliam Glucose [Mass/Vol] 140 mg/dL Critically high 74-106 [facility] Comment on above: Performed By: #### B ASSOCIATE SOFTWARE DEVELOPER, BMP, CMADM ####[facility] Cbmknojndg4[address] [place] [address]Dr. Garima Pulliam Potassium [Moles/Vol] 3.5 mmol/L Normal 3.5-5.1 [facility] Comment on above: Performed By: #### B ASSOCIATE SOFTWARE DEVELOPER, BMP, CMADM ####[facility] Odbbqswnug[address] [place] [address]Dr. Garima Pulliam Sodium [Moles/Vol] 141 mmol/L Normal 136-145 [facility] Comment on above: Performed By: #### B ASSOCIATE SOFTWARE DEVELOPER, BMP, CMADM ####[facility] Jxpuinkzlf03[address] [place] [address]Dr. Garima Pulliam Urea nitrogen [Mass/Vol] 8.0 mg/dL Normal 7.0-18.0 [facility] Comment on above: Performed By: #### B ASSOCIATE SOFTWARE DEVELOPER, BMP, CMADM ####[facility] Zhq[address]xjoal33[address] [place] [address]Dr. Garima Pulliam Urea nitrogen/Creatinine [Mass ratio] 12.3 mg/mg Normal [facility] Comment on above: Performed By: #### B ASSOCIATE SOFTWARE DEVELOPER, BMP, CMADM ####[facility] Ixwwmlrygy[address] [place], [place] [address]Dr. Garima Pulliam CARDIAC NASH ADMITon 023 CK [Catalytic activity/Vol] 165 U/L Normal 39-308 [facility] Comment on above: Performed By: #### B DAVID, CMADM ####[facility] Wtuholtyii[address] [place], [place] [address]Dr. Garima Pulliam CK.MB [Mass/Vol] 6.48 ng/mL Critically high <=3.60 [facility] Comment on above: Performed By: #### B MP, CMADM ####[facility] Yulhttuigz[address] [place], [place] [address]Dr. Garima Pulliam HSTROP 11.7 pg/mL Normal 4.0-76.1 [facility] Comment on above: Result Comment: CUT- OFF POINTS HAVE BEEN ESTABLISHED BASED ON THE FOURTH UNIVERSAL DEFINITIONS OF MYOCARDIALINFARCTION. THE UPPER REFERENCE LIMIT (URL) OF TROPONIN, DEFINED THE 99TH PERCENTILE OFcTnI DISTRIBUTION IN A REFERENCE POPULATION, HAS BEEN CONFIRMED THE DECISION THRESHOLDFOR MT DIAGNOSIS. Performed By: #### B MP, CMADM ####[facility] Tkedrwaaww[address] [place], [place] [address]Dr. Garima Pulliam DORIS 83 ng/mL Normal 16-96 [facility] Comment on above: Performed By: #### B MP, CMADM ####[facility] N[address]vfr[address]re[address] [place] [address]Dr. Garima Pulliam CBC AUTO DIFFon 12-10-2022 BASO # 0.0 103/ul Normal 0.0-0.1 [facility] Comment on above: Performed By: #### C BC ####[facility] Rdkhyxzjid[address] [place], [place] [address]Dr. Garima Heraclio Basophils/100 WBC (Bld) 0.3 % Normal 0.2-2.0 [facility] Comment on above: Performed By: #### C BC ####[facility] Lgswurkysx[address] [place], [place] [address]Dr. Garima Pulliam EO # 0.1 103/ul Normal 0.0-0.7 [facility] Comment on above: Performed By: #### C BC ####[facility] Iombinuaxn[address] [place], [place] [address]Dr. Garima Pulliam Eosinophils/100 WBC (Bld) 0.4 % Critically low 0.9-7.0 [facility] Comment on above: Performed By: #### C BC ####[facility] Kglpgiwyvk[address] [place], [place] [address]Dr. Garima Pulliam Erythrocyte distribution width (RBC) [Ratio] 13.2 % Normal 11.0-15.0 [facility] Comment on above: Performed By: #### C BC ####[facility] Kdjnywifbq[address] [place], [place] [address]Dr. Garima Pulliam Hematocrit (Bld) [Volume fraction] 42.4 % Normal 42.0-54.0 [facility] Comment on above: Performed By: #### C BC ####[facility] Wzyarvjazw[address] [place], [place] [address]Dr. Garima Pulliam Hemoglobin (Bld) [Mass/Vol] 14.4 g/dL Normal 14.0-18.0 [facility] Comment on above: Performed By: #### C BC ####[facility] [address]avkeg[address] [place] [phone]. Garima Heraclio IG # 0.05 10e3/ul Critically high 0.00-0.03 [facility] Comment on above: Performed By: #### C BC ####[facility] [address]mx[address] [place] [address]Dr. Garima Heraclio IG % 0.4 % Normal 0.0-0.5 [facility] Comment on above: Performed By: #### C BC ####[facility] Z[address]ftvodxb[address] [place], [place] [address]Dr. Garima Pulliam LYMPH # 0.8 103/ul Critically low 1.2-3.8 [facility] Comment on above: Performed By: #### C BC ####[facility] Tgxshiokwk83[address] [place], [place] [address]Dr. Chapisrenu Pulliam Lymphocytes/100 WBC (Bld) 6.5 % Critically low 20.5-60.0 [facility] Comment on above: Performed By: #### C BC ####[facility] Suewgmvgvq[address] [place], [place] [address]Dr. Chapisrenu Pulliam MANUAL DIFF REQ NO Normal [facility] Comment on above: Performed By: #### C BC ####[facility] Bmnoshiljd25[address] [place], [place] [address]DrAdalberto Garima Pulliam MCH (RBC) [Entitic mass] 30.5 pg Normal 25.9-34.0 [facility] Comment on above: Performed By: #### C BC ####[facility] Xbipbcufjc[address] [place], [place] [address]DrAdalberto Garima Heraclio MCHC (RBC) [Mass/Vol] 34.0 g/dL Normal 29.9-35.2 [facility] Comment on above: Performed By: #### C BC ####[facility] [address]zgevoxpqe[address] [place], [place] [address]DrAdalberto Garima Heraclio MCV (RBC) [Entitic vol] 89.8 fL Normal 80.0-94.0 [facility] Comment on above: Performed By: #### C BC ####[facility] Nxvtqvaybn[address] [place], [place] [address]Dr. Garima Pulliam MONO # 0.2 103/ul Critically low 0.3-0.8 [facility] Comment on above: Performed By: #### C BC ####[facility] [address]ylhax[address] [place] [phone]. Garima Pulliam Monocytes/100 WBC (Bld) 2.0 % Normal 1.7-12.0 [facility] Comment on above: Performed By: #### C BC ####[facility] [address]qnicm[address] [place] [address]Dr. Chapisrenu Heraclio NEUT # 10.5 103/ul Critically high 1.4-6.5 [facility] Comment on above: Performed By: #### C BC ####[facility] Mssoiiecrf[address] [place] [address]Dr. Garima Pulliam Neutrophils/100 WBC (Bld) 90.4 % Critically high 43.0-75.0 [facility] Comment on above: Performed By: #### C BC ####[facility] [address]vgplaqi5[address] [place] [address]Dr. Garima Pulliam Platelet mean volume (Bld) [Entitic vol] 9.4 fL Critically low 9.5-13.5 [facility] Comment on above: Performed By: #### C BC ####[facility] Vu[address]sgcaxs[address] [place] [address]Dr. Garima Pulliam PLT 198 103/ul Normal 150-450 [facility] Comment on above: Performed By: #### C BC ####[facility] Ybvfwgaocn8[address] [place] [address]Dr. Garima Pulliam RBC 4.72 106/ul Normal 4.70-6.10 [facility] Comment on above: Performed By: #### C BC ####[facility] [address] [place] [phone]. Garima Pulliam WBC 11.6 103/ul Critically high 4.0-11.0 [facility] Comment on above: Performed By: #### C BC ####[facility] [address]erxi[address] [place] [address]DrAdalberto Pulliam PROF CHEM 8 (BAS METB)on Anion gap [Moles/Vol] 11.3 mmol/L Normal Th [facility] Comment on above: Performed By: #### B NANCY HERNANDEZ ####[facility] V[address]fssxy[address] [place] [address]Dr. Garima Pulliam Calcium [Mass/Vol] 8.9 mg/dL Normal 8.5-10.1 [facility] Comment on above: Performed By: #### B NANCY HERNANDEZ ####[facility] [address]qqbenrhnu27[address] [place] [address]Dr. Garima Pulliam Chloride [Moles/Vol] 103 mmol/L Normal 98-107 [facility] Comment on above: Performed By: #### B NANCY HERNANDEZ ####[facility] Lavxcwcxab[address] [place], [place] [address]Dr. Garima Pulliam CO2 [Moles/Vol] 28.2 mmol/L Normal 21.0-32.0 [facility] Comment on above: Performed By: #### NANCY Larkin MP ####[facility] Hel[address]yoboj[address] [place] [address]Dr. Chapisrenu Pulliam Creatinine [Mass/Vol] 0.60 mg/dL Critically low 0.70-1.30 [facility] Comment on above: Performed By: #### NANCY Larkin MP ####[facility] Cxkoqkhyum[address] [place] [address]Dr. Garima Pulliam EGFR-AF JAPANESE >60 Normal >=60 [facility] Comment on above: Performed By: #### NANCY Larkin MP ####[facility] [address]sg[address]qxbczg7[address] [place] [address]Dr. Garima Pulliam EGFR-NON AF JAPANESE >60 Normal >=60 [facility] Comment on above: Performed By: #### NANCY Larkin MP ####[facility] Mvyfgwbddk[address] [place], [place] [address]Dr. Garima Pulliam Glucose [Mass/Vol] 166 mg/dL Critically high 74-106 [facility] Comment on above: Performed By: #### B MP, CMADM ####[facility] Nrdngygpub[address] [place] [address]Dr. Garima Pulliam Potassium [Moles/Vol] 3.5 mmol/L Normal 3.5-5.1 [facility] Comment on above: Performed By: #### B MP, CMADM ####[facility] Bl[address]ewkbfy[address] [place] [address]Dr. Garima Pulliam Sodium [Moles/Vol] 139 mmol/L Normal 136-145 [facility] Comment on above: Performed By: #### B DAVID, CMADM ####[facility] Pvmogxundy39[address] [place] [address]Dr. Garima Heraclio Urea nitrogen [Mass/Vol] 9.0 mg/dL Normal 7.0-18.0 [facility] Comment on above: Performed By: #### B DAVID, NANCY ####[facility] [address]zlbaunkt[address] [place], [place] [address]Dr. Garima Heraclio Urea nitrogen/Creatinine [Mass ratio] 15.0 mg/mg Normal [facility] Comment on above: Performed By: #### B DAVID, CMAANA ROSA ####[facility] Olktydiozf[address] [place], [place] [address]Dr. Garima Pulliam XR CHEST 1 Von 12-10-2022 XR CHEST 1 V Normal [facility] BNPon 11-27-2022 Natriuretic peptide B (Bld) [Mass/Vol] 95.0 pg/mL Normal <=900.0 [facility] Comment on above: Performed By: #### C MP, HSTROPN, BNP ####[facility] Uibqerbslr[address] [place], [place] [address]Dr. Garima Heraclio CBC AUTO DIFFon 11-27-2022 BASO # 0.0 103/ul Normal 0.0-0.1 [facility] Comment on above: Performed By: #### C BC ####[facility] Lmtdtkeeds[address] [place], [place] [address]Dr. Garima Heraclio Basophils/100 WBC (Bld) 0.2 % Normal 0.2-2.0 [facility] Comment on above: Performed By: #### C BC ####[facility] [address]qo[address] [place] [phone]. Garima Pulliam EO # 0.2 103/ul Normal 0.0-0.7 [facility] Comment on above: Performed By: #### C BC ####[facility] Rycfqqimsi4[address] [place] [phone]. Garima Pulliam Eosinophils/100 WBC (Bld) 2.0 % Normal 0.9-7.0 [facility] Comment on above: Performed By: #### C BC ####[facility] Xjowkpyhnf[address] [place], [place] [address]Dr. Garima Pulliam Erythrocyte distribution width (RBC) [Ratio] 13.2 % Normal 11.0-15.0 [facility] Comment on above: Performed By: #### C BC ####[facility] Kuwoqalqce[address] [place], [place] [address]Dr. Garima Pulliam Hematocrit (Bld) [Volume fraction] 42.4 % Normal 42.0-54.0 [facility] Comment on above: Performed By: #### C BC ####[facility] Dgxvbidgtb[address] [place], [place] [address]Dr. Garima Pulliam Hemoglobin (Bld) [Mass/Vol] 14.4 g/dL Normal 14.0-18.0 [facility] Comment on above: Performed By: #### C BC ####[facility] Koekeevypi[address] [place], [place] [address]Dr. Garima Pulliam IG # 0.04 10e3/ul Critically high 0.00-0.03 The [facility] Comment on above: Performed By: #### C BC ####[facility] Mizyasjspl[address] [place], [place] [address]Dr. Garima Pulliam IG % 0.4 % Normal 0.0-0.5 [facility] Comment on above: Performed By: #### C BC ####[facility] Jssufcqosq[address] [place], [place] [address]Dr. Garima Pulliam LYMPH # 2.2 103/ul Normal 1.2-3.8 [facility] Comment on above: Performed By: #### C BC ####[facility] Pcvdipzqzl5[address] [place] [phone]. Garima Pulliam Lymphocytes/100 WBC (Bld) 21.5 % Normal 20.5-60.0 [facility] Comment on above: Performed By: #### C BC ####[facility] Kqaqkzxcfk[address] [place] [phone]. Garima Heraclio MANUAL DIFF REQ NO Normal [facility] Comment on above: Performed By: #### C BC ####[facility] Jaxspihrpg[address] [place] [phone]. Garima Heraclio MCH (RBC) [Entitic mass] 30.4 pg Normal 25.9-34.0 [facility] Comment on above: Performed By: #### C BC ####[facility] F[address]zqkurnx[address] [place] [address]Dr. Garima Heraclio MCHC (RBC) [Mass/Vol] 34.0 g/dL Normal 29.9-35.2 [facility] Comment on above: Performed By: #### C BC ####[facility] Uhcmtmwafk74[address] [place] [phone]. Garima Pulliam MCV (RBC) [Entitic vol] 89.6 fL Normal 80.0-94.0 [facility] Comment on above: Performed By: #### C BC ####[facility] Lfogybzlgc[address] [place] [phone]. Garima Pulliam MONO # 0.8 103/ul Normal 0.3-0.8 [facility] Comment on above: Performed By: #### C BC ####[facility] Xefeemqqfg24[address] [place] [phone]. Chapisrenu Pulliam Monocytes/100 WBC (Bld) 7.7 % Normal 1.7-12.0 [facility] Comment on above: Performed By: #### C BC ####[facility] Aqxbuafxij[address] [place], [place] [address]Dr. Garima Pulliam NEUT # 7.0 103/ul Critically high 1.4-6.5 [facility] Comment on above: Performed By: #### C BC ####[facility] Evepvdbwpc[address] [place] [phone]. Garima Pulliam Neutrophils/100 WBC (Bld) 68.2 % Normal 43.0-75.0 [facility] Comment on above: Performed By: #### C BC ####[facility] Bogelbsryw[address] [place] [phone]. Chapisrenu Pulliam Platelet mean volume (Bld) [Entitic vol] 8.9 fL Critically low 9.5-13.5 [facility] Comment on above: Performed By: #### C BC ####[facility] [address]vwiurrh25[address] [place] [address]Dr. Garima Pulliam PLT 222 103/ul Normal 150-450 [facility] Comment on above: Performed By: #### C BC ####[facility] Nhbfnquxrv37[address] [place] [address]Dr. Garima Pulliam RBC 4.73 106/ul Normal 4.70-6.10 [facility] Comment on above: Performed By: #### C BC ####[facility] Hqiggfyfea24[address] [place] [address]Dr. Garima Pulliam WBC 10.3 103/ul Normal 4.0-11.0 [facility] Comment on above: Performed By: #### C BC ####[facility] Thbcfcsuun2[address] [place] [address]Dr. Garima Pulliam PROF 14(COMP METB)on 023 Albumin [Mass/Vol] 3.7 g/dL Normal 3.4-5.0 [facility] Comment on above: Performed By: #### C MP, HSTROPN, BNP ####[facility] Hyvdjjgsrf7[address] [place] [address]Dr. Chapisrenu Pulliam Albumin/Globulin [Mass ratio] 1.5 {ratio} Normal [facility] Comment on above: Performed By: #### C MP, HSTROPN, BNP ####[facility] Ot[address]ckhtl[address] [place] [address]Dr. Garima Pulliam ALP [Catalytic activity/Vol] 79 U/L Normal 46-116 [facility] Comment on above: Performed By: #### C MP, HSTROPN, BNP ####[facility] Ywqfyvyqqk34[address] [place] [address]Dr. Garima Pulliam ALT [Catalytic activity/Vol] 32 U/L Normal 16-63 [facility] Comment on above: Performed By: #### C MP, HSTROPN, BNP ####[facility] Wlwjzvziqr8368 [place] [address]Dr. Garima Pulliam Anion gap [Moles/Vol] 9.5 mmol/L Normal [facility] Comment on above: Performed By: #### C MP, HSTROPN, BNP ####[facility] S[address]zhjbncp[address] [place], [place] [address]Dr. Garima Pulliam AST [Catalytic activity/Vol] 25 U/L Normal 15-37 [facility] Comment on above: Performed By: #### C MP, HSTROPN, BNP ####[facility] Euklspuqad[address] [place], [place] [address]Dr. Chapislan Pulliam Bilirubin [Mass/Vol] 0.4 mg/dL Normal 0.2-1.0 [facility] Comment on above: Performed By: #### C MP, HSTROPN, BNP ####[facility] Coxnachjvt[address] [place], [place] [address]Dr. Garima Pulliam Calcium [Mass/Vol] 8.9 mg/dL Normal 8.5-10.1 [facility] Comment on above: Performed By: #### C MP, HSTROPN, BNP ####[facility] Tsatkomnai[address] [place], [place] [address]Dr. Chapislan Pulliam Chloride [Moles/Vol] 103 mmol/L Normal 98-107 [facility] Comment on above: Performed By: #### C MP, HSTROPN, BNP ####[facility] Vhovopwesm[address] [place], [place] [address]Dr. Yilan Pulliam CO2 [Moles/Vol] 28.6 mmol/L Normal 21.0-32.0 [facility] Comment on above: Performed By: #### C MP, HSTROPN, BNP ####[facility] [address]ajbewz[address] [place] [address]Dr. Garima Pulliam Creatinine [Mass/Vol] 0.72 mg/dL Normal 0.70-1.30 [facility] Comment on above: Performed By: #### C MP, HSTROPN, BNP ####[facility] [address]jxwp[address] [place] [address]Dr. Garima Pulliam EGFR-AF JAPANESE >60 Normal >=60 [facility] Comment on above: Performed By: #### C MP, HSTROPN, BNP ####[facility] Fdrpilsikb[address] [place] [address]Dr. Garima Pulliam EGFR-NON AF JAPANESE >60 Normal >=60 [facility] Comment on above: Performed By: #### C MP, HSTROPN, BNP ####[facility] Wlhpxshehe[address] [place] [address]Dr. Garima Pulliam Globulin (S) [Mass/Vol] 2.5 g/dL Normal [facility] Comment on above: Performed By: #### C MP, HSTROPN, BNP ####[facility] [address]piqry[address] [place], [place] [address]Dr. Garima Pulliam Glucose [Mass/Vol] 114 mg/dL Critically high 74-106 T [facility] Comment on above: Performed By: #### C MP, HSTROPN, BNP ####[facility] K[address]isqzryc[address] [place], [place] [address]Dr. Garima Pulliam Potassium [Moles/Vol] 4.1 mmol/L Normal 3.5-5.1 [facility] Comment on above: Performed By: #### C MP, HSTROPN, BNP ####[facility] Vtducz[address] [place], [place] [address]Dr. Garima Pulliam Protein [Mass/Vol] 6.2 g/dL Critically low 6.4-8.2 Th [facility] Comment on above: Performed By: #### C MP, HSTROPN, BNP ####[facility] Fvzmdkwebq[address] [place], [place] [address]Dr. Yilan Pulliam Sodium [Moles/Vol] 137 mmol/L Normal 136-145 The [facility] Comment on above: Performed By: #### C MP, HSTROPN, BNP ####[facility] [address] [place] [address]Dr. Garima Pulliam Urea nitrogen [Mass/Vol] 13.0 mg/dL Normal 7.0-18.0 [facility] Comment on above: Performed By: #### C MP, HSTROPN, BNP ####[facility] [address] [place] [address]Dr. Garima Pulliam Urea nitrogen/Creatinine [Mass ratio] 18.1 mg/mg Normal [facility] Comment on above: Performed By: #### C MP, HSTROPN, BNP ####[facility] Knvnzpdybp[address] [place], [place] [address]Dr. Garima Pulliam TROPONIN, HIGH SENSITIVITYon 11-27-2022 HSTROP 11.8 pg/mL Normal 4.0-76.1 [facility] Comment on above: Result Comment: CUT- OFF POINTS HAVE BEEN ESTABLISHED BASED ON THE FOURTH UNIVERSAL DEFINITIONS OF MYOCARDIALINFARCTION. THE UPPER REFERENCE LIMIT (URL) OF TROPONIN, DEFINED THE 99TH PERCENTILE OFcTnI DISTRIBUTION IN A REFERENCE POPULATION, HAS BEEN CONFIRMED THE DECISION THRESHOLDFOR MT DIAGNOSIS. Performed By: #### C MP, HSTROPN, BNP ####[facility] Srflzkgnuo[address] [place], [place] [address]Dr. Garima Pulliam XR CHEST 1 Von 11-27-2022 XR CHEST 1 V Normal [facility] BNPon 11-20-2022 Natriuretic peptide B (Bld) [Mass/Vol] 73.0 pg/mL Normal <=900.0 The [facility] Comment on above: Performed By: #### B MP, HSTROPN, BNP ####[facility] Hurxqfpssz[address] [place], [place] [address]Dr. Garima Pulliam CBC AUTO DIFFon 11-20-2022 BASO # 0.0 103/ul Normal 0.0-0.1 [facility] Comment on above: Performed By: #### C BC ####[facility] [address] [place] [id number]. Garima Pulliam Basophils/100 WBC (Bld) 0.3 % Normal 0.2-2.0 The [facility] Comment on above: Performed By: #### C BC ####[facility] [address]ax[address] [place] [phone]. Garima Pulliam EO # 0.2 103/ul Normal 0.0-0.7 The [facility] Comment on above: Performed By: #### C BC ####[facility] L[address]qnixtv[address] [place] [address]Dr. Garima Pulliam Eosinophils/100 WBC (Bld) 2.1 % Normal 0.9-7.0 The [facility] Comment on above: Performed By: #### C BC ####[facility] Luzmkeqgvl[address] [place], [place] [address]Dr. Garima Pulliam Erythrocyte distribution width (RBC) [Ratio] 13.2 % Normal 11.0-15.0 The [facility] Comment on above: Performed By: #### C BC ####[facility] Mpdqsdnnke[address] [place], [place] [address]Dr. Garima Pulliam Hematocrit (Bld) [Volume fraction] 43.4 % Normal 42.0-54.0 The [facility] Comment on above: Performed By: #### C BC ####[facility] [address] [place], [place] [address]Dr. Garima Pulliam Hemoglobin (Bld) [Mass/Vol] 14.6 g/dL Normal 14.0-18.0 The [facility] Comment on above: Performed By: #### C BC ####[facility] [address]jc[address]qsjtt[address] [place] [id number]. Garima Pulliam IG # 0.02 10e3/ul Normal 0.00-0.03 The [facility] Comment on above: Performed By: #### C BC ####[facility] [address]xrco[address] [place] [address]Dr. Garima Pulliam IG % 0.2 % Normal 0.0-0.5 The [facility] Comment on above: Performed By: #### C BC ####[facility] [address]uiqpmmbwq55[address] [place] [phone]. Garima Heraclio LYMPH # 2.1 103/ul Normal 1.2-3.8 The [facility] Comment on above: Performed By: #### C BC ####[facility] Wsvanxxjje035[address] [place] [phone]. Garima Heraclio Lymphocytes/100 WBC (Bld) 19.2 % Critically low 20.5-60.0 The [facility] Comment on above: Performed By: #### C BC ####[facility] [address]rcq[address] [place] [phone]. Chapisrenu Pulliam MANUAL DIFF REQ NO Normal [facility] Comment on above: Performed By: #### C BC ####[facility] [address]qptofvddl5[address] [place] [phone]. Garima Heraclio MCH (RBC) [Entitic mass] 30.4 pg Normal 25.9-34.0 The [facility] Comment on above: Performed By: #### C BC ####[facility] [address]ap[address]fdt[address] [place] [address]Dr. Garima Pulliam MCHC (RBC) [Mass/Vol] 33.6 g/dL Normal 29.9-35.2 [facility] Comment on above: Performed By: #### C BC ####[facility] Zdnqdbfqxv64[address] [place] [phone]. Garima Heraclio MCV (RBC) [Entitic vol] 90.4 fL Normal 80.0-94.0 The [facility] Comment on above: Performed By: #### C BC ####[facility] Usrnlucqca5[address] [place] [phone]. Garima Heraclio MONO # 0.6 103/ul Normal 0.3-0.8 [facility] Comment on above: Performed By: #### C BC ####[facility] R[address]lqoifte[address] [place] [address]Dr. Garima Heraclio Monocytes/100 WBC (Bld) 5.8 % Normal 1.7-12.0 The [facility] Comment on above: Performed By: #### C BC ####[facility] [address]tf[address]29[address] [place], [place] [address]Zm. Garima Pulliam NEUT # 7.8 103/ul Critically high 1.4-6.5 [facility] Comment on above: Performed By: #### C BC ####[facility] Jvuriyudis360[address] [place] [phone]. Garima Pulliam Neutrophils/100 WBC (Bld) 72.4 % Normal 43.0-75.0 The [facility] Comment on above: Performed By: #### C BC ####[facility] Aldnmvqmra18[address] [place] [phone]. Garima Pulliam Platelet mean volume (Bld) [Entitic vol] 8.7 fL Critically low 9.5-13.5 The [facility] Comment on above: Performed By: #### C BC ####[facility] Mxnsmyneen54[address] [place] [phone]. Garima Pulliam PLT 184 103/ul Normal 150-450 The [facility] Comment on above: Performed By: #### C BC ####[facility] Vy[address]mszb[address] [place], [place] [address]Ly. Garima Pulliam RBC 4.80 106/ul Normal 4.70-6.10 The [facility] Comment on above: Performed By: #### C BC ####[facility] Hs[address]cxufei60[address] [place] [phone]. Garima Pulliam WBC 10.8 103/ul Normal 4.0-11.0 The [facility] Comment on above: Performed By: #### C BC ####[facility] Phieemoudi[address] [place] [phone]. Garima Pulliam [facility]24 SARS-CoV-2 (COVID-19) RNA MARIE+probe Ql (Unsp spec) Not detected Normal NOT DETECTED The [facility] Comment on above: Result Comment: When [...] for this test is supported by the Draw Bench Operator of Health and Human Service's declaration [...] be used). Performed By: #### C VDTBH ####[facility] Bnfiwfwpt[address] [place], [place] [address]Dr. Garima Pulliam INFLUENZA A AND B AGon 11-20 [facility] SEE BELOW Normal [facility] Comment on above: Result Comment: Nega tive for Flu A protein angiten. Infection due to Flu A cannot be ruled out. Flu A angiten in the sample may be below the detection limit of the test. Performed By: #### I NFLUAB ####[facility] Yysdavacyn[address] [place], [place] [address]Dr. Garima Pulliam INFLUBNEGH SEE BELOW Normal The [facility] Comment on above: Result Comment: Nega tive for Flu B protein antigen. Infection due to Flu B cannot be ruled out. Flu B antigen in the sample may be below the detection limit of the test. Performed By: #### I NFLUAB ####[facility] Rvv[address]nrcyh[address] [place], [place] [address]Dr. Garima Pulliam INFLUENZA A AG Negative Normal NEGATIVE SEE COMMENT The [facility] Comment on above: Performed By: #### I NFLUAB ####[facility] Tdrpaepgxq[address] [place], [place] [address]Dr. Garima [facility] INFLUENZA B AG Negative Normal NEGATIVE SEE COMMENT The [facility] Comment on above: Performed By: #### I NFLUAB ####[facility] Yvxitoysib[address] [place], [place] [address]Dr. Garima Pulliam PROF CHEM 8 (BAS METB)on Anion gap [Moles/Vol] 8.2 mmol/L Normal The [facility] Comment on above: Performed By: #### B MP, HSTROPN, BNP ####[facility] [address]prwgnt[address] [place] [address]Dr. Garima Pulliam Calcium [Mass/Vol] 8.7 mg/dL Normal 8.5-10.1 [facility] Comment on above: Performed By: #### B MP, HSTROPN, BNP ####[facility] L[address]kyokgew50[address] [place] [address]Dr. Garima Pulliam Chloride [Moles/Vol] 103 mmol/L Normal 98-107 [facility] Comment on above: Performed By: #### B MP, HSTROPN, BNP ####[facility] Olkxy[address]rwa[address] [place], [place] [address]Dr. Garima Pulilam CO2 [Moles/Vol] 29.4 mmol/L Normal 21.0-32.0 The [facility] Comment on above: Performed By: #### B MP, HSTROPN, BNP ####[facility] B[address]uckz[address] [place], [place] [address]Dr. Garima Pulliam Creatinine [Mass/Vol] 0.69 mg/dL Critically low 0.70-1.30 [facility] Comment on above: Performed By: #### B MP, HSTROPN, BNP ####[facility] [address] [place] [address]Dr. Garima Pulliam EGFR-AF JAPANESE >60 Normal >=60 The [facility] Comment on above: Performed By: #### B MP, HSTROPN, BNP ####[facility] Br[address]ysnq[address] [place], [place] [address]Dr. Garima Pulliam EGFR-NON AF JAPANESE >60 Normal >=60 [facility] Comment on above: Performed By: #### B MP, HSTROPN, BNP ####[facility] [address]z9[address] [place] [address]Dr. Garima Pulliam Glucose [Mass/Vol] 209 mg/dL Critically high 74-106 T [facility] Comment on above: Performed By: #### B MP, HSTROPN, BNP ####[facility] Ceuutqrric[address] [place] [address]Dr. Garima Pulliam Potassium [Moles/Vol] 3.6 mmol/L Normal 3.5-5.1 [facility] Comment on above: Performed By: #### B MP, HSTROPN, BNP ####[facility] U[address]errjcwb[address] [place] [address]Dr. Garima Pulliam Sodium [Moles/Vol] 137 mmol/L Normal 136-145 The [facility] Comment on above: Performed By: #### B MP, HSTROPN, BNP ####[facility] Bvdzatoggl3264 [place] [address]Dr. Garima Pulliam Urea nitrogen [Mass/Vol] 11.0 mg/dL Normal 7.0-18.0 [facility] Comment on above: Performed By: #### B MP, HSTROPN, BNP ####[facility] Srlmvuljbo39[address] [place] [address]Dr. Garima Pulliam Urea nitrogen/Creatinine [Mass ratio] 15.9 mg/mg Normal [facility] Comment on above: Performed By: #### B MP, HSTROPN, BNP ####[facility] Zxrgxsrvlh46[address] [place] [address]Dr. Garima Pulliam TROPONIN, HIGH SENSITIVITYon 11-20-2022 HSTROP 8.7 pg/mL Normal 4.0-76.1 [facility] Comment on above: Result Comment: CUT- OFF POINTS HAVE BEEN ESTABLISHED BASED ON THE FOURTH UNIVERSAL DEFINITIONS OF MYOCARDIALINFARCTION. THE UPPER REFERENCE LIMIT (URL) OF TROPONIN, DEFINED THE 99TH PERCENTILE OFcTnI DISTRIBUTION IN A REFERENCE POPULATION, HAS BEEN CONFIRMED THE DECISION THRESHOLDFOR MT DIAGNOSIS. Performed By: #### B MP, HSTROPN, BNP ####[facility] Edd[address]xyl[address] [place] [address]Dr. Garima Pulliam XR CHEST 1 Von 11-20-2022 XR CHEST 1 V Normal The [facility] XR CHEST 1 Von 10-02-2022 XR CHEST 1 V Normal The [facility] BNPon 09-29-2022 Natriuretic peptide B (Bld) [Mass/Vol] 107.0 pg/mL Normal <=900.0 The [facility] Comment on above: Performed By: #### C MP, BNP, CMADM ####[facility] L[address] [place] [address]Dr. Garima Pulliam CARDIAC NASH ADMITon 022 CK [Catalytic activity/Vol] 190 U/L Normal 39-308 The [facility] Comment on above: Performed By: #### C MP, BNP, CMADM ####[facility] O[address]aka[address] [place] [address]Dr. Garima Heraclio CK.MB [Mass/Vol] 11.11 ng/mL Critically high <=3.60 Th [facility] Comment on above: Performed By: #### C MP, BNP, CMADM ####[facility] P[address]tp[address]ow[address] [place] [address]Dr. Garima Pulliam HSTROP 11.8 pg/mL Normal 4.0-76.1 The [facility] Comment on above: Result Comment: CUT- OFF POINTS HAVE BEEN ESTABLISHED BASED ON THE FOURTH UNIVERSAL DEFINITIONS OF MYOCARDIALINFARCTION. THE UPPER REFERENCE LIMIT (URL) OF TROPONIN, DEFINED THE 99TH PERCENTILE OFcTnI DISTRIBUTION IN A REFERENCE POPULATION, HAS BEEN CONFIRMED THE DECISION THRESHOLDFOR MT DIAGNOSIS. Performed By: #### C MP, BNP, CMADM ####[facility] Kfzfggevvr77[address] [place] [address]Dr. Garima Pulliam DORIS 133 ng/mL Critically high 16-96 [facility] Comment on above: Performed By: #### C MP, BNP, CMADM ####[facility] K[address]neuowknb[address] [place] [address]Dr. Garima Heraclio CBC AUTO DIFFon 09-29-2022 BASO # 0.0 103/ul Normal 0.0-0.1 The [facility] Comment on above: Performed By: #### C BC ####[facility] Bvctgwdzge26[address] [place] [address]Dr. Garima Heraclio Basophils/100 WBC (Bld) 0.2 % Normal 0.2-2.0 The [facility] Comment on above: Performed By: #### C BC ####[facility] Yyepqisvre6230 [place] [phone]. Garima Pulliam EO # 0.1 103/ul Normal 0.0-0.7 The [facility] Comment on above: Performed By: #### C BC ####[facility] Bxysaexldg2380 [place] [phone]. Garima Pulliam Eosinophils/100 WBC (Bld) 1.4 % Normal 0.9-7.0 The [facility] Comment on above: Performed By: #### C BC ####[facility] Blqepauxsm[address] [place], [place] [address]Dr. Garima Pulliam Erythrocyte distribution width (RBC) [Ratio] 13.7 % Normal 11.0-15.0 [facility] Comment on above: Performed By: #### C BC ####[facility] [address]woqzvrjld[address] [place], [place] [address]Dr. Garima Pulliam Hematocrit (Bld) [Volume fraction] 45.4 % Normal 42.0-54.0 [facility] Comment on above: Performed By: #### C BC ####[facility] Y[address]awjrnsa[address] [place], [place] [address]Dr. Garima Pulliam Hemoglobin (Bld) [Mass/Vol] 14.8 g/dL Normal 14.0-18.0 [facility] Comment on above: Performed By: #### C BC ####[facility] F[address]vxvkzzar[address] [place], [place] [address]Dr. Garima Pulliam IG # 0.04 10e3/ul Critically high 0.00-0.03 [facility] Comment on above: Performed By: #### C BC ####[facility] Sdeeaosphd[address] [place], [place] [address]Dr. Garima Pulliam IG % 0.5 % Normal 0.0-0.5 [facility] Comment on above: Performed By: #### C BC ####[facility] D[address]muvpgsa[address] [place], [place] [address]Dr. Garima Pulliam LYMPH # 1.1 103/ul Critically low 1.2-3.8 The [facility] Comment on above: Performed By: #### C BC ####[facility] Flipapnwue[address] [place] [phone]. Garima Pulliam Lymphocytes/100 WBC (Bld) 12.7 % Critically low 20.5-60.0 [facility] Comment on above: Performed By: #### C BC ####[facility] Npmgeoummc5978 [place] [phone]. Chapisrenu Pulliam MANUAL DIFF REQ NO Normal [facility] Comment on above: Performed By: #### C BC ####[facility] [address]ts[address]wvr[address] [place], [place] [address]Dr. Garima Heraclio MCH (RBC) [Entitic mass] 30.0 pg Normal 25.9-34.0 The [facility] Comment on above: Performed By: #### C BC ####[facility] [address]meuqnzblu[address] [place], [place] [address]Dr. Garima Heraclio MCHC (RBC) [Mass/Vol] 32.6 g/dL Normal 29.9-35.2 [facility] Comment on above: Performed By: #### C BC ####[facility] [address] [place], [place] [address]Dr. Garima Heraclio MCV (RBC) [Entitic vol] 91.9 fL Normal 80.0-94.0 [facility] Comment on above: Performed By: #### C BC ####[facility] Ixedup[address]vbs[address] [place], [place] [address]Dr. Garima Pulliam MONO # 0.4 103/ul Normal 0.3-0.8 [facility] Comment on above: Performed By: #### C BC ####[facility] [address]ysxrq[address] [place], [place] [address]Dr. Chapisrenu Pulliam Monocytes/100 WBC (Bld) 4.8 % Normal 1.7-12.0 The [facility] Comment on above: Performed By: #### C BC ####[facility] [address] [place], [place] [address]Dr. Garima Pulliam NEUT # 7.1 103/ul Critically high 1.4-6.5 [facility] Comment on above: Performed By: #### C BC ####[facility] [address]ac[address]suiys60[address] [place], [place] [address]Dh. Garima Pulliam Neutrophils/100 WBC (Bld) 80.4 % Critically high 43.0-75.0 [facility] Comment on above: Performed By: #### C BC ####[facility] Zktfejfhgd0866 [place] [phone]. Garima Pulliam Platelet mean volume (Bld) [Entitic vol] 9.1 fL Critically low 9.5-13.5 [facility] Comment on above: Performed By: #### C BC ####[facility] [address]ae6[address] [place] [phone]. Garima Pulliam PLT 200 103/ul Normal 150-450 [facility] Comment on above: Performed By: #### C BC ####[facility] Vekdlkwnhq59[address] [place] [phone]. Garima Pulliam RBC 4.94 106/ul Normal 4.70-6.10 [facility] Comment on above: Performed By: #### C BC ####[facility] Bilzbzyjdz5751 [place] [phone]. Garima Pulliam WBC 8.9 103/ul Normal 4.0-11.0 The [facility] Comment on above: Performed By: #### C BC ####[facility] Vowhcfaids2498 [place] [phone]. Garima Pulliam Covid-19 PCR (CVDTB)on SARS-CoV-2 (COVID-19) RNA MARIE+probe Ql (Unsp spec) Not detected Normal NOT DETECTED The [facility] Comment on above: Result Comment: When [...] for this test is supported by the Draw Bench Operator of Health and Human Service's declaration [...] be used). Performed By: #### C VDTBH ####[facility] [address]hlbawdsrw[address] [place] [address]Dr. Garima Pulliam LACTATE/LACTIC ACIDon 2021 Lactate [Moles/Vol] 1.7 mmol/L Normal 0.4-1.9 [facility] Comment on above: Performed By: #### L ACT ####[facility] Amemmodubc[address] [place], [place] [address]Dr. Garima Pulliam PROF 14(COMP METB)on 022 Albumin [Mass/Vol] 3.8 g/dL Normal 3.4-5.0 [facility] Comment on above: Performed By: #### C MP, BNP, CMADM ####[facility] Nxvwzgbuvc[address] [place], [place] [address]Dr. Garima Pulliam Albumin/Globulin [Mass ratio] 1.5 {ratio} Normal [facility] Comment on above: Performed By: #### C MP, BNP, CMADM ####[facility] [address]axfuntpt[address] [place] [address]Dr. Garima Pulliam ALP [Catalytic activity/Vol] 62 U/L Normal 46-116 [facility] Comment on above: Performed By: #### C MP, BNP, CMADM ####[facility] Fepapfcfrw05[address] [place] [address]Dr. Garima Pulliam ALT [Catalytic activity/Vol] 37 U/L Normal 16-63 [facility] Comment on above: Performed By: #### C MP, BNP, CMADM ####[facility] Luplnjarfc8097 [place] [address]Dr. Garima Pulliam Anion gap [Moles/Vol] 8.0 mmol/L Normal [facility] Comment on above: Performed By: #### C MP, BNP, CMADM ####[facility] Otbuvbroue26[address] [place] [address]Dr. Garima Pulliam AST [Catalytic activity/Vol] 20 U/L Normal 15-37 [facility] Comment on above: Performed By: #### C MP, BNP, CMADM ####[facility] Gbccdxeklq35[address] [place] [address]Dr. Garima Pulliam Bilirubin [Mass/Vol] 0.6 mg/dL Normal 0.2-1.0 [facility] Comment on above: Performed By: #### C MP, BNP, CMADM ####[facility] Wbrtwlmspg2774 [place] [address]Dr. Garima Pulliam Calcium [Mass/Vol] 9.1 mg/dL Normal 8.5-10.1 [facility] Comment on above: Performed By: #### C MP, BNP, CMADM ####[facility] Fzkzrfuqww[address] [place], [place] [address]Dr. Garima Pulliam Chloride [Moles/Vol] 103 mmol/L Normal 98-107 [facility] Comment on above: Performed By: #### C MP, BNP, CMADM ####[facility] [address]xpbjmvf[address] [place], [place] [address]Dr. Garima Pulliam CO2 [Moles/Vol] 31.8 mmol/L Normal 21.0-32.0 The [facility] Comment on above: Performed By: #### C MP, BNP, CMADM ####[facility] X[address]zsw[address]rc[address] [place], [place] [address]Dr. Garima Pulliam Creatinine [Mass/Vol] 0.63 mg/dL Critically low 0.70-1.30 [facility] Comment on above: Performed By: #### C MP, BNP, CMADM ####[facility] J[address]ckefwft[address] [place], [place] [address]Dr. Garima Pulliam EGFR-AF JAPANESE >60 Normal >=60 The [facility] Comment on above: Performed By: #### C MP, BNP, CMADM ####[facility] [address]wzgijsng[address] [place], [place] [address]Dr. Garima Pulliam EGFR-NON AF JAPANESE >60 Normal >=60 [facility] Comment on above: Performed By: #### C MP, BNP, CMADM ####[facility] Ihzsqnlutj[address] [place] [address]Dr. Garima Pulliam Globulin (S) [Mass/Vol] 2.6 g/dL Normal [facility] Comment on above: Performed By: #### C MP, BNP, CMADM ####[facility] Pkxqfwzyxn8326 [place] [address]Dr. Garima Pulliam Glucose [Mass/Vol] 103 mg/dL Normal 74-106 The [facility] Comment on above: Performed By: #### C MP, BNP, CMADM ####[facility] E[address]iketrse[address] [place] [address]Dr. Garima Pulliam Potassium [Moles/Vol] 3.8 mmol/L Normal 3.5-5.1 [facility] Comment on above: Performed By: #### C MP, BNP, CMADM ####[facility] Jtdzgayray8216 [place] [address]Dr. Garima Pulliam Protein [Mass/Vol] 6.4 g/dL Normal 6.4-8.2 [facility] Comment on above: Performed By: #### C MP, BNP, CMADM ####[facility] [address]qzlkiount[address] [place] [address]Dr. Garima Pulliam Sodium [Moles/Vol] 139 mmol/L Normal 136-145 [facility] Comment on above: Performed By: #### C MP, BNP, CMADM ####[facility] [address] [place] [address]Dr. Garima Pulliam Urea nitrogen [Mass/Vol] 7.0 mg/dL Normal 7.0-18.0 [facility] Comment on above: Performed By: #### C MP, BNP, CMADM ####[facility] Z[address]dyrgodi[address] [place] [address]Dr. Garima Pulliam Urea nitrogen/Creatinine [Mass ratio] 11.1 mg/mg Normal [facility] Comment on above: Performed By: #### C MP, BNP, CMADM ####[facility] Jjcfxxarbf[address] [place] [address]Dr. Garima Pulliam PROTIMEon 09-29-2022 INR Coag (PPP) [Relative time] 1.14 {INR} Normal [facility] Comment on above: Performed By: #### P T, PTT ####[facility] Wkttorqv[address] [place], [place] [address]Dr. Garima Pulliam INR GUIDELINES SEE BELOW Normal [facility] Comment on above: Result Comment: WESLEY RED INR: 2.0 - 3.0 CONDITIONS NOT LISTED BELOW 2.5 - 3.5 FOR PROSTHETIC HEART VALVE REPLACEMENT 2.5 - 3.5 RECURRENT THROMBOSIS Performed By: #### P T, PTT ####[facility] Tuffqmfciv[address] [place], [place] [address]Dr. Garima Pulliam PT Coag (PPP) [Time] 12.2 s Critically high 9.0-11.6 [facility] Comment on above: Performed By: #### P T, PTT ####[facility] Yaowyjrgrp[address] [place], [place] [address]Dr. Garima Pulliam PTTon 09-29-2022 aPTT Coag (Bld) [Time] 29.3 s Normal 22.3-36.2 [facility] Comment on above: Performed By: #### P T, PTT ####[facility] Xkjxrzzsbz[address] [place], [place] [address]Dr. Garima Pulliam XR CHEST 1 Von 09-29-2022 XR CHEST 1 V Normal [facility] CBC AUTO DIFFon 09-26-2022 BASO # 0.0 103/ul Normal 0.0-0.1 [facility] Comment on above: Performed By: #### C BC ####[facility] Zzeeoyvitj22[address] [place], [place] [address]Dr. Garima Pulliam Basophils/100 WBC (Bld) 0.2 % Normal 0.2-2.0 [facility] Comment on above: Performed By: #### C BC ####[facility] Zosziolxxc86[address] [place], [place] [address]Dr. Garima Pulliam EO # 0.1 103/ul Normal 0.0-0.7 [facility] Comment on above: Performed By: #### C BC ####[facility] Nyqooucjvp9[address] [place], [place] [address]Dr. Garima Pulliam Eosinophils/100 WBC (Bld) 1.0 % Normal 0.9-7.0 [facility] Comment on above: Performed By: #### C BC ####[facility] Enkbghoelb[address] [place], [place] [address]Dr. Garima Pulliam Erythrocyte distribution width (RBC) [Ratio] 13.4 % Normal 11.0-15.0 [facility] Comment on above: Performed By: #### C BC ####[facility] Vpznjmxlbg[address] [place], [place] [address]Dr. Garima Pulliam Hematocrit (Bld) [Volume fraction] 46.3 % Normal 42.0-54.0 [facility] Comment on above: Performed By: #### C BC ####[facility] Ysrtiftnrq3532[address] [place], [place] [address]Dr. Garima Pulliam Hemoglobin (Bld) [Mass/Vol] 15.3 g/dL Normal 14.0-18.0 [facility] Comment on above: Performed By: #### C BC ####[facility] Skrfrgvcfb45[address] [place], [place] [address]Dr. Garima Pulliam IG # 0.05 10e3/ul Critically high 0.00-0.03 [facility] Comment on above: Performed By: #### C BC ####[facility] Fdqrujztmf65[address] [place], [place] [address]Dr. Graima Pulliam IG % 0.4 % Normal 0.0-0.5 [facility] Comment on above: Performed By: #### C BC ####[facility] Byqagshhiy477[address] [place], [place] [address]Dr. Garima Pulliam LYMPH # 1.7 103/ul Normal 1.2-3.8 [facility] Comment on above: Performed By: #### C BC ####[facility] Mwoeulhtei1713[address] [place], [place] [address]Dr. Garima Pulliam Lymphocytes/100 WBC (Bld) 12.7 % Critically low 20.5-60.0 [facility] Comment on above: Performed By: #### C BC ####[facility] Xmufbkttam224[address] [place] [address]DrAdalberto Pulliam MANUAL DIFF REQ NO Normal [facility] Comment on above: Performed By: #### C BC ####[facility] Jraj[address]zaqoq20[address] [place] [address]Dr. Garima Pulliam MCH (RBC) [Entitic mass] 30.1 pg Normal 25.9-34.0 [facility] Comment on above: Performed By: #### C BC ####[facility] Rplippreve0140[address] [place], [place] [address]Dr. Garima Pulliam MCHC (RBC) [Mass/Vol] 33.0 g/dL Normal 29.9-35.2 [facility] Comment on above: Performed By: #### C BC ####[facility] Pninxltedw045[address] [place], [place] [address]DrAdalberto Pulliam MCV (RBC) [Entitic vol] 91.1 fL Normal 80.0-94.0 [facility] Comment on above: Performed By: #### C BC ####[facility] Wrorktafsq12[address] [place], [place] [address]DrAdalberto Pulliam MONO # 0.9 103/ul Critically high 0.3-0.8 [facility] Comment on above: Performed By: #### C BC ####[facility] Kbvaktfryl[address] [place], [place] [address]DrAdalberto Pulliam Monocytes/100 WBC (Bld) 7.0 % Normal 1.7-12.0 [facility] Comment on above: Performed By: #### C BC ####[facility] Aujdzcsgwl7238[address] [place], [place] [address]DrAdalberto Pulliam NEUT # 10.4 103/ul Critically high 1.4-6.5 [facility] Comment on above: Performed By: #### C BC ####[facility] Agjsyzyvas8124[address] [place], [place] [address]DrAdalberto Pulliam Neutrophils/100 WBC (Bld) 78.7 % Critically high 43.0-75.0 [facility] Comment on above: Performed By: #### C BC ####[facility] Fuhtpsbdvw[address] [place] [address]Dr. Garima Pulliam Platelet mean volume (Bld) [Entitic vol] 8.9 fL Critically low 9.5-13.5 [facility] Comment on above: Performed By: #### C BC ####[facility] [address] [place] [address]Dr. Garima Pulliam PLT 195 103/ul Normal 150-450 [facility] Comment on above: Performed By: #### C BC ####[facility] Qmsdeviqht9[address] [place], [place] [address]Dr. Garima Pulliam RBC 5.08 106/ul Normal 4.70-6.10 [facility] Comment on above: Performed By: #### C BC ####[facility] Ksyxhlyktc[address] [place], [place] [address]Dr. Garima Pulliam WBC 13.2 103/ul Critically high 4.0-11.0 [facility] Comment on above: Performed By: #### C BC ####[facility] Dqifdlqxpa[address] [place], [place] [address]Dr. Garima Pulliam PROF 14(COMP METB)on 022 Albumin [Mass/Vol] 3.5 g/dL Normal 3.4-5.0 [facility] Comment on above: Performed By: #### C DAVID HSTROPN ####[facility] [address]swr[address] [place] [address]Dr. Garima Pulliam Albumin/Globulin [Mass ratio] 1.2 {ratio} Normal [facility] Comment on above: Performed By: #### C RAFAT HERNANDEZTROPN ####[facility] Vs[address]jbbfsf[address] [place] [address]Dr. Garima Pulliam ALP [Catalytic activity/Vol] 71 U/L Normal 46-116 [facility] Comment on above: Performed By: #### C DAVID HSTROPN ####[facility] [address] [place] [address]Dr. Garima Pulliam ALT [Catalytic activity/Vol] 37 U/L Normal 16-63 [facility] Comment on above: Performed By: #### C DAVID, HSTROPN ####[facility] Ig[address]iblvv[address] [place] [address]Dr. Garima Pulliam Anion gap [Moles/Vol] 4.8 mmol/L Normal [facility] Comment on above: Performed By: #### C DAVID, HSTROPN ####[facility] Ojioufqrss[address] [place], [place] [address]Dr. Garima Pulliam AST [Catalytic activity/Vol] 21 U/L Normal 15-37 [facility] Comment on above: Performed By: #### C DAVID, HSTROPN ####[facility] Vmfvfeuouf[address] [place], [place] [address]Dr. Garima Pulliam Bilirubin [Mass/Vol] 0.3 mg/dL Normal 0.2-1.0 [facility] Comment on above: Performed By: #### C DAVID, HSTROPN ####[facility] [address]axrv[address] [place] [address]Dr. Garima Pulliam Calcium [Mass/Vol] 8.9 mg/dL Normal 8.5-10.1 [facility] Comment on above: Performed By: #### C DAVID, HSTROPN ####[facility] F[address]ot[address]yk[address] [place] [address]Dr. Garima Pulliam Chloride [Moles/Vol] 106 mmol/L Normal 98-107 [facility] Comment on above: Performed By: #### C DAVID, HSTROPN ####[facility] Joyjavestj[address] [place] [address]Dr. Garima Pulliam CO2 [Moles/Vol] 29.8 mmol/L Normal 21.0-32.0 [facility] Comment on above: Performed By: #### C DAVID, HSTROPN ####[facility] [address]ixrldnxqx[address] [place] [address]Dr. Garima Pullima Creatinine [Mass/Vol] 0.68 mg/dL Critically low 0.70-1.30 [facility] Comment on above: Performed By: #### C MP, HSTROPN ####[facility] [address]fr[address]vswl[address] [place] [address]Dr. Garima Pulliam EGFR-AF JAPANESE >60 Normal >=60 [facility] Comment on above: Performed By: #### C MP, HSTROPN ####[facility] C[address]sarr[address] [place] [address]Dr. Chapislan Pulliam EGFR-NON AF JAPANESE >60 Normal >=60 [facility] Comment on above: Performed By: #### C MP, HSTROPN ####[facility] Fbrxedjgie[address] [place] [address]Dr. Garima Pulliam Globulin (S) [Mass/Vol] 2.8 g/dL Normal [facility] Comment on above: Performed By: #### C MP, HSTROPN ####[facility] Oorftjpcta[address] [place] [address]Dr. Garima Pulliam Glucose [Mass/Vol] 133 mg/dL Critically high 74-106 [facility] Comment on above: Performed By: #### C MP, HSTROPN ####[facility] [address]zzepjhj4[address] [place] [address]Dr. Chapisrenu Pulliam Potassium [Moles/Vol] 3.6 mmol/L Normal 3.5-5.1 [facility] Comment on above: Performed By: #### C MP, HSTROPN ####[facility] [address]tnjvui[address] [place] [address]Dr. Chapisrenu Pulliam Protein [Mass/Vol] 6.3 g/dL Critically low 6.4-8.2 [facility] Comment on above: Performed By: #### C MP, HSTROPN ####[facility] Yjhixffwhg[address] [place], [place] [address]Dr. Chapisrenu Pulliam Sodium [Moles/Vol] 137 mmol/L Normal 136-145 [facility] Comment on above: Performed By: #### C MP, HSTROPN ####[facility] Kkkrlyrlfh[address] [place], [place] [address]Dr. Garima Pulliam Urea nitrogen [Mass/Vol] 15.0 mg/dL Normal 7.0-18.0 [facility] Comment on above: Performed By: #### C DAVID HSTROPN ####[facility] [address]qsvtx[address] [place] [address]Dr. Chapisrenu Pulliam Urea nitrogen/Creatinine [Mass ratio] 22.1 mg/mg Normal [facility] Comment on above: Performed By: #### C DAVID HSTROPN ####[facility] [address]ong[address] [place] [address]Dr. Garima Heraclio TROPONIN, HIGH SENSITIVITYon 09-26-2022 HSTROP 12.8 pg/mL Normal 4.0-76.1 [facility] Comment on above: Result Comment: CUT- OFF POINTS HAVE BEEN ESTABLISHED BASED ON THE FOURTH UNIVERSAL DEFINITIONS OF MYOCARDIALINFARCTION. THE UPPER REFERENCE LIMIT (URL) OF TROPONIN, DEFINED THE 99TH PERCENTILE OFcTnI DISTRIBUTION IN A REFERENCE POPULATION, HAS BEEN CONFIRMED THE DECISION THRESHOLDFOR MT DIAGNOSIS. Performed By: #### C DAVID HSTROPN ####[facility] [address]vfr[address] [place] [address]Dr. Chapisrenu Pulliam XR CHEST 1 Von 09-26-2022 XR CHEST 1 V Normal [facility] XR CHEST 1 Von 09-16-2022 XR CHEST 1 V Normal [facility] CBC AUTO DIFFon 09-15-2022 BASO # 0.0 103/ul Normal 0.0-0.1 [facility] Comment on above: Performed By: #### C BC ####[facility] Y[address]owfcnmqz[address] [place] [address]Dr. Garima Heraclio Basophils/100 WBC (Bld) 0.1 % Critically low 0.2-2.0 [facility] Comment on above: Performed By: #### C BC ####[facility] [address]st[address] [place] [address]Dr. Garima Pulliam EO # 0.0 103/ul Normal 0.0-0.7 [facility] Comment on above: Performed By: #### C BC ####[facility] I[address]zczwcvb[address] [place] [address]Dr. Garima Pulliam Eosinophils/100 WBC (Bld) 0.1 % Critically low 0.9-7.0 [facility] Comment on above: Performed By: #### C BC ####[facility] Leuvrexttb4[address] [place] [address]Dr. Garima Pulliam Erythrocyte distribution width (RBC) [Ratio] 14.1 % Normal 11.0-15.0 [facility] Comment on above: Performed By: #### C BC ####[facility] Pmjpqnusgf34[address] [place], [place] [address]Dr. Garima Pulliam Hematocrit (Bld) [Volume fraction] 46.1 % Normal 42.0-54.0 [facility] Comment on above: Performed By: #### C BC ####[facility] Atwfggxffc60[address] [place], [place] [address]Dr. Garima Pulliam Hemoglobin (Bld) [Mass/Vol] 15.0 g/dL Normal 14.0-18.0 [facility] Comment on above: Performed By: #### C BC ####[facility] Mffclhchij[address] [place], [place] [address]Dr. Garima Pulliam IG # 0.03 10e3/ul Normal 0.00-0.03 [facility] Comment on above: Performed By: #### C BC ####[facility] Odylbsclrn[address] [place], [place] [address]Dr. Garima Pulliam IG % 0.3 % Normal 0.0-0.5 [facility] Comment on above: Performed By: #### C BC ####[facility] Xwbuttnncc[address] [place], [place] [address]Dr. Garima Pulliam LYMPH # 0.6 103/ul Critically low 1.2-3.8 [facility] Comment on above: Performed By: #### C BC ####[facility] Hstibhnezh[address] [place], [place] [address]Dr. Garima Pulliam Lymphocytes/100 WBC (Bld) 5.8 % Critically low 20.5-60.0 [facility] Comment on above: Performed By: #### C BC ####[facility] [address]yxts[address] [place] [id number]. Garima Pulliam MANUAL DIFF REQ NO Normal [facility] Comment on above: Performed By: #### C BC ####[facility] [address]fcrqqlk[address] [place] [phone]. Garima Pulliam MCH (RBC) [Entitic mass] 30.2 pg Normal 25.9-34.0 [facility] Comment on above: Performed By: #### C BC ####[facility] Btgmlwabsx7[address] [place] [address]Dr. Garima Pulliam MCHC (RBC) [Mass/Vol] 32.5 g/dL Normal 29.9-35.2 [facility] Comment on above: Performed By: #### C BC ####[facility] Fsziymuxlf65[address] [place] [address]Dr. Garima Pulliam MCV (RBC) [Entitic vol] 92.8 fL Normal 80.0-94.0 [facility] Comment on above: Performed By: #### C BC ####[facility] H[address]cpqrnezv24[address] [place] [address]Dr. Garima Heraclio MONO # 0.3 103/ul Normal 0.3-0.8 [facility] Comment on above: Performed By: #### C BC ####[facility] Jwzuhqrgae67[address] [place] [phone]. Garima Heraclio Monocytes/100 WBC (Bld) 3.2 % Normal 1.7-12.0 [facility] Comment on above: Performed By: #### C BC ####[facility] Grmrbyfyqv27[address] [place] [phone]. Garima Pulliam NEUT # 9.8 103/ul Critically high 1.4-6.5 [facility] Comment on above: Performed By: #### C BC ####[facility] Vllpsejlgx69[address] [place] [phone]. Garima Pulliam Neutrophils/100 WBC (Bld) 90.5 % Critically high 43.0-75.0 [facility] Comment on above: Performed By: #### C BC ####[facility] Rfvkqebynj[address] [place] [phone]. Garima Pulliam Platelet mean volume (Bld) [Entitic vol] 9.4 fL Critically low 9.5-13.5 [facility] Comment on above: Performed By: #### C BC ####[facility] Riwobqumuq45[address] [place] [phone]. Garima Pulliam PLT 208 103/ul Normal 150-450 [facility] Comment on above: Performed By: #### C BC ####[facility] Kvdujacvrx18[address] [place] [address]Dr. Garima Pulliam RBC 4.97 106/ul Normal 4.70-6.10 [facility] Comment on above: Performed By: #### C BC ####[facility] Dsgrsctsaq04[address] [place] [address]Dr. Garima Pulliam WBC 10.8 103/ul Normal 4.0-11.0 [facility] Comment on above: Performed By: #### C BC ####[facility] Kewddkrjhm[address] [place] [address]Dr. Garima Pulliam PROF 14(COMP METB)on 022 Albumin [Mass/Vol] 4.0 g/dL Normal 3.4-5.0 [facility] Comment on above: Performed By: #### C MP ####[facility] Bbnrlxzllo3268 [place] [address]Dr. Garima Pulliam Albumin/Globulin [Mass ratio] 1.5 {ratio} Normal [facility] Comment on above: Performed By: #### C MP ####[facility] Fctvtarhde37[address] [place] [address]Dr. Garima Pulliam ALP [Catalytic activity/Vol] 73 U/L Normal 46-116 [facility] Comment on above: Performed By: #### C MP ####[facility] Mzfjhmnylt[address] [place] [address]Dr. Garima Pulliam ALT [Catalytic activity/Vol] 42 U/L Normal 16-63 [facility] Comment on above: Performed By: #### C MP ####[facility] Tdqdqfvjrw8387 [place] [address]Dr. Garima Pulliam Anion gap [Moles/Vol] 9.1 mmol/L Normal [facility] Comment on above: Performed By: #### C MP ####[facility] Eefcjqheet[address] [place], [place] [address]Dr. Garima Pulliam AST [Catalytic activity/Vol] 28 U/L Normal 15-37 [facility] Comment on above: Performed By: #### C MP ####[facility] [address]zrzdojxs64[address] [place], [place] [address]Dr. Garima Pulliam Bilirubin [Mass/Vol] 0.6 mg/dL Normal 0.2-1.0 [facility] Comment on above: Performed By: #### C MP ####[facility] Fgzrichmed[address] [place], [place] [address]Dr. Garima Pulliam Calcium [Mass/Vol] 8.6 mg/dL Normal 8.5-10.1 [facility] Comment on above: Performed By: #### C MP ####[facility] Lweahtxykx[address] [place], [place] [address]Dr. Garima Pulliam Chloride [Moles/Vol] 105 mmol/L Normal 98-107 [facility] Comment on above: Performed By: #### C MP ####[facility] Gjhhqgbqpn[address] [place], [place] [address]Dr. Garima Pulliam CO2 [Moles/Vol] 28.5 mmol/L Normal 21.0-32.0 [facility] Comment on above: Performed By: #### C MP ####[facility] X[address]kjdvkisg03[address] [place], [place] [address]Dr. Garima Heraclio Creatinine [Mass/Vol] 0.78 mg/dL Normal 0.70-1.30 [facility] Comment on above: Performed By: #### C MP ####[facility] B[address]crilhwpm[address] [place], [place] [address]Dr. Chapisrenu Heraclio EGFR-AF JAPANESE >60 Normal >=60 [facility] Comment on above: Performed By: #### C MP ####[facility] Xieubknetw[address] [place], [place] [address]Dr. Garima Pulliam EGFR-NON AF JAPANESE >60 Normal >=60 [facility] Comment on above: Performed By: #### C MP ####[facility] Fmpoqqdbts1304 [place] [address]Dr. Garima Pulliam Globulin (S) [Mass/Vol] 2.7 g/dL Normal [facility] Comment on above: Performed By: #### C MP ####[facility] Sizruvlzov19[address] [place] [address]Dr. Garima Pulliam Glucose [Mass/Vol] 220 mg/dL Critically high 74-106 T [facility] Comment on above: Performed By: #### C MP ####[facility] Nhntztkgov7249 [place] [address]Dr. Garima Pulliam Potassium [Moles/Vol] 3.6 mmol/L Normal 3.5-5.1 [facility] Comment on above: Performed By: #### C MP ####[facility] Vzigofwxgv[address] [place], [place] [address]Dr. Garima Pulliam Protein [Mass/Vol] 6.7 g/dL Normal 6.4-8.2 [facility] Comment on above: Performed By: #### C MP ####[facility] V[address]fofinhw0[address] [place], [place] [address]Dr. Garima Pulliam Sodium [Moles/Vol] 139 mmol/L Normal 136-145 [facility] Comment on above: Performed By: #### C MP ####[facility] Gwxcwsxdua15[address] [place], [place] [address]Dr. Garima Pulliam Urea nitrogen [Mass/Vol] 11.0 mg/dL Normal 7.0-18.0 [facility] Comment on above: Performed By: #### C MP ####[facility] Jxrwkqofpn[address] [place], [place] [address]Dr. Garima Pulliam Urea nitrogen/Creatinine [Mass ratio] 14.1 mg/mg Normal [facility] Comment on above: Performed By: #### C MP ####[facility] J[address]hjwphyzw[address] [place], [place] [address]Dr. Garima Pulliam CARDIAC NASH 3-6on 2 CK [Catalytic activity/Vol] 240 U/L Normal 39-308 [facility] Comment on above: Performed By: #### C MREP ####[facility] Ffzykqijea[address] [place] [address]Dr. Garima Pulliam CK.MB [Mass/Vol] 10.38 ng/mL Critically high <=3.60 Th [facility] Comment on above: Performed By: #### C MREP ####[facility] Uqgngptcfy7[address] [place] [address]Dr. Garima Pulliam HSTROP 18.5 pg/mL Normal 4.0-76.1 [facility] Comment on above: Result Comment: CUT- OFF POINTS HAVE BEEN ESTABLISHED BASED ON THE FOURTH UNIVERSAL DEFINITIONS OF MYOCARDIALINFARCTION. THE UPPER REFERENCE LIMIT (URL) OF TROPONIN, DEFINED THE 99TH PERCENTILE OFcTnI DISTRIBUTION IN A REFERENCE POPULATION, HAS BEEN CONFIRMED THE DECISION THRESHOLDFOR MT DIAGNOSIS. Performed By: #### C MREP ####[facility] [address]zwvdxry27[address] [place] [address]Dr. Garima Pulliam CK [Catalytic activity/Vol] 257 U/L Normal 39-308 [facility] Comment on above: Performed By: #### C MREP ####[facility] [address]ns[address]cflyb64[address] [place], [place] [address]Dr. Garima Pulliam CK.MB [Mass/Vol] 9.89 ng/mL Critically high <=3.60 [facility] Comment on above: Performed By: #### C MREP ####[facility] X[address]rbqsssrm[address] [place], [place] [address]Dr. Garima Pulliam HSTROP 16.9 pg/mL Normal 4.0-76.1 [facility] Comment on above: Result Comment: CUT- OFF POINTS HAVE BEEN ESTABLISHED BASED ON THE FOURTH UNIVERSAL DEFINITIONS OF MYOCARDIALINFARCTION. THE UPPER REFERENCE LIMIT (URL) OF TROPONIN, DEFINED THE 99TH PERCENTILE OFcTnI DISTRIBUTION IN A REFERENCE POPULATION, HAS BEEN CONFIRMED THE DECISION THRESHOLDFOR MT DIAGNOSIS. Performed By: #### C MREP ####[facility] Ozheghzhws44[address] [place] [address]Dr. Garima Heraclio CBC AUTO DIFFon 10-22-2022 BASO # 0.0 103/ul Normal 0.0-0.1 [facility] Comment on above: Performed By: #### C BC ####[facility] Gxqolbjxzw10[address] [place] [id number]. Garima Pulliam Basophils/100 WBC (Bld) 0.1 % Critically low 0.2-2.0 [facility] Comment on above: Performed By: #### C BC ####[facility] Ebtgelwwoi[address] [place] [address]Dr. Garima Pulliam EO # 0.0 103/ul Normal 0.0-0.7 The [facility] Comment on above: Performed By: #### C BC ####[facility] Ptsvkpyxqr[address] [place], [place] [address]Dr. Chapisrenu Heraclio Eosinophils/100 WBC (Bld) 0.0 % Critically low 0.9-7.0 [facility] Comment on above: Performed By: #### C BC ####[facility] Pyxothwijy[address] [place], [place] [address]Dr. Garima Pulliam Erythrocyte distribution width (RBC) [Ratio] 13.6 % Normal 11.0-15.0 [facility] Comment on above: Performed By: #### C BC ####[facility] Drcmvpzznh3[address] [place], [place] [address]Dr. Garima Pulliam Hematocrit (Bld) [Volume fraction] 48.2 % Normal 42.0-54.0 [facility] Comment on above: Performed By: #### C BC ####[facility] Nqlfdbjgup[address] [place], [place] [address]Dr. Garima Pulliam Hemoglobin (Bld) [Mass/Vol] 16.0 g/dL Normal 14.0-18.0 [facility] Comment on above: Performed By: #### C BC ####[facility] Cwxtuuuyzg[address] [place], [place] [address]Dr. Chapisrenu Heraclio IG # 0.02 10e3/ul Normal 0.00-0.03 [facility] Comment on above: Performed By: #### C BC ####[facility] [address] [place] [id number]. Garima Pulliam IG % 0.3 % Normal 0.0-0.5 [facility] Comment on above: Performed By: #### C BC ####[facility] E[address]uz[address] [place] [address]Dr. Garima Heraclio LYMPH # 0.5 103/ul Critically low 1.2-3.8 The [facility] Comment on above: Performed By: #### C BC ####[facility] Ifyhrnugcp[address] [place] [address]Dr. Garima Heraclio Lymphocytes/100 WBC (Bld) 7.7 % Critically low 20.5-60.0 [facility] Comment on above: Performed By: #### C BC ####[facility] Oyzmlbnvow[address] [place], [place] [address]Dr. Chapisrenu Pulliam MANUAL DIFF REQ NO Normal The [facility] Comment on above: Performed By: #### C BC ####[facility] Hjawtgnqej[address] [place], [place] [address]Dr. Garima Heraclio MCH (RBC) [Entitic mass] 30.6 pg Normal 25.9-34.0 [facility] Comment on above: Performed By: #### C BC ####[facility] Crteefdujk[address] [place], [place] [address]Dr. Garima Pulliam MCHC (RBC) [Mass/Vol] 33.2 g/dL Normal 29.9-35.2 The [facility] Comment on above: Performed By: #### C BC ####[facility] [address] [place], [place] [address]Dr. Garima Heraclio MCV (RBC) [Entitic vol] 92.2 fL Normal 80.0-94.0 [facility] Comment on above: Performed By: #### C BC ####[facility] Nxqnhrkuom[address] [place], [place] [address]Dr. Garima Pulliam MONO # 0.0 103/ul Critically low 0.3-0.8 The [facility] Comment on above: Performed By: #### C BC ####[facility] Cl[address]xbouwhq4[address] [place] [phone]. Garima Pulliam Monocytes/100 WBC (Bld) 0.4 % Critically low 1.7-12.0 [facility] Comment on above: Performed By: #### C BC ####[facility] Jz[address]quohrs17[address] [place] [phone]. Garima Pulliam NEUT # 6.2 103/ul Normal 1.4-6.5 [facility] Comment on above: Performed By: #### C BC ####[facility] Rrslcejiul[address] [place] [address]Dr. Garima Pulliam Neutrophils/100 WBC (Bld) 91.5 % Critically high 43.0-75.0 [facility] Comment on above: Performed By: #### C BC ####[facility] I[address]ua[address] [place] [address]Dr. Garima Pulliam Platelet mean volume (Bld) [Entitic vol] 8.7 fL Critically low 9.5-13.5 [facility] Comment on above: Performed By: #### C BC ####[facility] Ltiwetfmfn[address] [place] [address]Dr. Garima Pulliam PLT 179 103/ul Normal 150-450 [facility] Comment on above: Performed By: #### C BC ####[facility] Fgr[address]udrly24[address] [place] [phone]. Garima Pulliam RBC 5.23 106/ul Normal 4.70-6.10 [facility] Comment on above: Performed By: #### C BC ####[facility] E[address]nerepxv[address] [place] [address]Dr. Garima Pulliam WBC 6.7 103/ul Normal 4.0-11.0 [facility] Comment on above: Performed By: #### C BC ####[facility] Eniqouwkzd[address] [place] [address]Dr. Garima Pulliam PROF CHEM 8 (BAS METB)on Anion gap [Moles/Vol] 12.1 mmol/L Normal Th [facility] Comment on above: Performed By: #### B MP ####[facility] Syobybpeyp[address] [place] [phone]. Garima Pulliam Calcium [Mass/Vol] 8.7 mg/dL Normal 8.5-10.1 The [facility] Comment on above: Performed By: #### B MP ####[facility] Uacpppmxsm75[address] [place] [phone]. Garima Pulliam Chloride [Moles/Vol] 105 mmol/L Normal 98-107 [facility] Comment on above: Performed By: #### B MP ####[facility] Yosxgvbqtp2639 [place] [phone]. Garima Pulliam CO2 [Moles/Vol] 25.5 mmol/L Normal 21.0-32.0 The [facility] Comment on above: Performed By: #### B MP ####[facility] Mk[address]emkort[address] [place] [address]Dr. Garima Pulliam Creatinine [Mass/Vol] 0.63 mg/dL Critically low 0.70-1.30 [facility] Comment on above: Performed By: #### B MP ####[facility] Dcfvcqwnmb5803 [place] [address]Dr. Garima Pulliam EGFR-AF JAPANESE >60 Normal >=60 The [facility] Comment on above: Performed By: #### B MP ####[facility] Tzec[address]lwlb[address] [place] [address]Dr. Garima Pulliam EGFR-NON AF JAPANESE >60 Normal >=60 [facility] Comment on above: Performed By: #### B MP ####[facility] Rndnqekhjy0828 [place] [address]Dr. Garima Pulliam Glucose [Mass/Vol] 162 mg/dL Critically high 74-106 [facility] Comment on above: Performed By: #### B MP ####[facility] Ncjrrxy[address] [place], [place] [address]Dr. Garima Pulliam Potassium [Moles/Vol] 3.6 mmol/L Normal 3.5-5.1 [facility] Comment on above: Performed By: #### B MP ####[facility] Zccth[address]yxk[address] [place], [place] [address]Dr. Garima Pulliam Sodium [Moles/Vol] 139 mmol/L Normal 136-145 [facility] Comment on above: Performed By: #### B DAVID ####[facility] Rqywpnkugb20[address] [place] [address]Dr. Garima Pulliam Urea nitrogen [Mass/Vol] 9.0 mg/dL Normal 7.0-18.0 [facility] Comment on above: Performed By: #### B DAVID ####[facility] Gtdbspkdox6636 [place] [address]Dr. Garima Pulliam Urea nitrogen/Creatinine [Mass ratio] 14.3 mg/mg Normal [facility] Comment on above: Performed By: #### B DAVID ####[facility] Hthdwcmvvg28[address] [place] [address]Dr. Chapisrenu Pulliam CARDIAC NASH ADMITon 09-12- 022 CK [Catalytic activity/Vol] 304 U/L Normal 39-308 [facility] Comment on above: Performed By: #### B NANCY HERNANDEZ ####[facility] Jwowwxczdz33[address] [place] [address]Dr. Garima Pulliam CK.MB [Mass/Vol] 11.81 ng/mL Critically high <=3.60 Th [facility] Comment on above: Performed By: #### B NANCY HERNANDEZ ####[facility] Tcezpdoojh64[address] [place] [address]Dr. Garima Heraclio HSTROP 13.3 pg/mL Normal 4.0-76.1 [facility] Comment on above: Result Comment: CUT- OFF POINTS HAVE BEEN ESTABLISHED BASED ON THE FOURTH UNIVERSAL DEFINITIONS OF MYOCARDIALINFARCTION. THE UPPER REFERENCE LIMIT (URL) OF TROPONIN, DEFINED THE 99TH PERCENTILE OFcTnI DISTRIBUTION IN A REFERENCE POPULATION, HAS BEEN CONFIRMED THE DECISION THRESHOLDFOR MT DIAGNOSIS. Performed By: #### B NANCY HERNANDEZ ####[facility] Qvbjsnamxb7310 [place] [address]Dr. Garima Pulliam DORIS 133 ng/mL Critically high 16-96 [facility] Comment on above: Performed By: #### B NANCY HERNANDEZ ####[facility] Jmzlhrwduu6[address] [place] [address]Dr. Garima Pulliam CBC AUTO DIFFon 09-12-2022 BASO # 0.0 103/ul Normal 0.0-0.1 [facility] Comment on above: Performed By: #### C BC ####[facility] [address] [place], [place] [address]Dr. Garima Heraclio Basophils/100 WBC (Bld) 0.2 % Normal 0.2-2.0 The [facility] Comment on above: Performed By: #### C BC ####[facility] Davwpiygal[address] [place], [place] [address]Dr. Garima Heraclio EO # 0.2 103/ul Normal 0.0-0.7 [facility] Comment on above: Performed By: #### C BC ####[facility] Wogdqdmcgz9[address] [place], [place] [address]Dr. Chapisrenu Pulliam Eosinophils/100 WBC (Bld) 1.3 % Normal 0.9-7.0 The [facility] Comment on above: Performed By: #### C BC ####[facility] Lxbpftysbn25[address] [place], [place] [address]Dr. Garima Pulliam Erythrocyte distribution width (RBC) [Ratio] 13.7 % Normal 11.0-15.0 [facility] Comment on above: Performed By: #### C BC ####[facility] Jahpmrwfaj[address] [place], [place] [address]Dr. Garima Pulliam Hematocrit (Bld) [Volume fraction] 46.4 % Normal 42.0-54.0 [facility] Comment on above: Performed By: #### C BC ####[facility] Unxnfgnsgh[address] [place], [place] [address]Dr. Garima Pulliam Hemoglobin (Bld) [Mass/Vol] 15.7 g/dL Normal 14.0-18.0 [facility] Comment on above: Performed By: #### C BC ####[facility] Xhrnsvtiha0[address] [place], [place] [address]Dr. Garima Pulliam IG # 0.04 10e3/ul Critically high 0.00-0.03 [facility] Comment on above: Performed By: #### C BC ####[facility] G[address]wcfufij13[address] [place] [id number]. Garima Pulliam IG % 0.3 % Normal 0.0-0.5 [facility] Comment on above: Performed By: #### C BC ####[facility] Fsuedpukdo5[address] [place] [phone]. Garima Pulliam LYMPH # 1.7 103/ul Normal 1.2-3.8 [facility] Comment on above: Performed By: #### C BC ####[facility] Jhgyrodnvp0589 [place] [phone]. Garima Pulliam Lymphocytes/100 WBC (Bld) 11.5 % Critically low 20.5-60.0 [facility] Comment on above: Performed By: #### C BC ####[facility] Fmwmohttvk6583 [place] [phone]. Garima Pulliam MANUAL DIFF REQ NO Normal [facility] Comment on above: Performed By: #### C BC ####[facility] Zuhthrgqns1056 [place] [phone]. Garima Pulliam MCH (RBC) [Entitic mass] 31.0 pg Normal 25.9-34.0 [facility] Comment on above: Performed By: #### C BC ####[facility] Sztqepwpff4442 [place] [phone]. Garima Pulliam MCHC (RBC) [Mass/Vol] 33.8 g/dL Normal 29.9-35.2 [facility] Comment on above: Performed By: #### C BC ####[facility] Tjizbnwane39[address] [place] [phone]. Garima Pulliam MCV (RBC) [Entitic vol] 91.7 fL Normal 80.0-94.0 [facility] Comment on above: Performed By: #### C BC ####[facility] Cmzjhlukbf5813 [place] [id number]. Garima Heraclio MONO # 0.8 103/ul Normal 0.3-0.8 [facility] Comment on above: Performed By: #### C BC ####[facility] Aueaspqflp9615 [place] [id number]. Garima Pulliam Monocytes/100 WBC (Bld) 5.2 % Normal 1.7-12.0 [facility] Comment on above: Performed By: #### C BC ####[facility] Myyhpeywuc19[address] [place] [id number]. Garima Pulliam NEUT # 11.7 103/ul Critically high 1.4-6.5 The [facility] Comment on above: Performed By: #### C BC ####[facility] Qifzrryrix1281 [place] [phone]. Garima Pulliam Neutrophils/100 WBC (Bld) 81.5 % Critically high 43.0-75.0 [facility] Comment on above: Performed By: #### C BC ####[facility] Rwktxoytkr3523 [place] [address]Dr. Garima Pulliam Platelet mean volume (Bld) [Entitic vol] 8.6 fL Critically low 9.5-13.5 [facility] Comment on above: Performed By: #### C BC ####[facility] Oapgvnbtlq7880 [place] [phone]. Garima Pulliam PLT 191 103/ul Normal 150-450 [facility] Comment on above: Performed By: #### C BC ####[facility] [address] [place], [place] [address]Dr. Garima Pulliam RBC 5.06 106/ul Normal 4.70-6.10 [facility] Comment on above: Performed By: #### C BC ####[facility] [address]zb[address] [place], [place] [address]Dr. Garima Pulliam WBC 14.4 103/ul Critically high 4.0-11.0 The [facility] Comment on above: Performed By: #### C BC ####[facility] I[address]qqkntmv[address] [place], [place] [address]Dr. Garima Pulliam [facility] SARS-CoV-2 (COVID-19) RNA MARIE+probe Ql (Unsp spec) Not detected Normal NOT DETECTED The [facility] Comment on above: Result Comment: When [...] for this test is supported by the [place] of Health and Human Service's declaration [...] be used). Performed By: #### C VDTBH ####[facility] Jpkzomefsy[address] [place], [place] [address]Dr. Garima Pulliam LACTATE/LACTIC ACIDon 2021 Lactate [Moles/Vol] 1.0 mmol/L Normal 0.4-1.9 [facility] Comment on above: Performed By: #### L ACT ####[facility] [address]rxtiwrh[address] [place], [place] [address]Dr. Garima Pulliam PROF CHEM 8 (BAS METB)on Anion gap [Moles/Vol] 11.6 mmol/L Normal [facility] Comment on above: Performed By: #### B NANCY HERNANDEZ ####[facility] Yt[address]okbkmu[address] [place] [address]Dr. Garima Pulliam Calcium [Mass/Vol] 9.2 mg/dL Normal 8.5-10.1 [facility] Comment on above: Performed By: #### B NANCY HERNANDEZ ####[facility] Ypvjazygzh9303 [place] [address]Dr. Garima Pulliam Chloride [Moles/Vol] 105 mmol/L Normal 98-107 [facility] Comment on above: Performed By: #### B MP, CMADM ####[facility] Kbkjprepzs1315 [place] [id number]. Garima Pulliam CO2 [Moles/Vol] 25.9 mmol/L Normal 21.0-32.0 [facility] Comment on above: Performed By: #### B DAVID, CMADM ####[facility] Fxhxgmkzms112[address] [place] [address]Dr. Garima Pulliam Creatinine [Mass/Vol] 0.72 mg/dL Normal 0.70-1.30 [facility] Comment on above: Performed By: #### B DAVID, CMADM ####[facility] [address]esiacphn[address] [place] [id number]. Garima Pulliam EGFR-AF JAPANESE >60 Normal >=60 [facility] Comment on above: Performed By: #### B DAVID, CMADM ####[facility] Ipoiuvbdki[address] [place] [address]Dr. Chapisrenu Pulliam EGFR-NON AF JAPANESE >60 Normal >=60 [facility] Comment on above: Performed By: #### B DAVID, CMAANA ROSA ####[facility] Zhzmjjejug15[address] [place] [address]Dr. Garima Pulliam Glucose [Mass/Vol] 111 mg/dL Critically high 74-106 [facility] Comment on above: Performed By: #### B DAVID, CMADM ####[facility] Tlufuwkrzx89[address] [place] [address]Dr. Chapisrenu Pulliam Potassium [Moles/Vol] 3.5 mmol/L Normal 3.5-5.1 [facility] Comment on above: Performed By: #### B DAVID, CMADM ####[facility] Dpnqzhouyx53[address] [place] [address]Dr. Chapisrenu Pulliam Sodium [Moles/Vol] 139 mmol/L Normal 136-145 [facility] Comment on above: Performed By: #### B DAVID, CMADM ####[facility] Qmaxunvrjy4453 [place] [address]Dr. Garima Pulliam Urea nitrogen [Mass/Vol] 7.0 mg/dL Normal 7.0-18.0 [facility] Comment on above: Performed By: #### B DAVID, CMADM ####[facility] [address] [place], [place] [address]Oj. Garima Pulliam Urea nitrogen/Creatinine [Mass ratio] 9.7 mg/mg Normal [facility] Comment on above: Performed By: #### B MP, CMADM ####[facility] [address] [place], [place] [address]Od. Garima Pulliam XR CHEST 1 Von 09-12-2022 XR CHEST 1 V Normal [facility] Encounters Encounter Date Encounter Type Care [...] Start: 11-25-2022 End: 11-25-[address] KANE Golver Facility:[facility] Start: 11-20-2022 End: 11-20-[address] [...] Facility:[facility] Payers Date Payer Category Payer Unknown [id number] 1960 Medicaid [id number] 1960 Unknown [id number] 1960 Unknown [id number] 1954 Unknown [id number] 2.16.84 0.1.105157.3.579.2.593 1954 Unknown [id number] 2.16.84 0.1.108696.3.579.2.593 1954 Unknown [id number] 2.16.84 0.1.667187.3.579.2.593 1954 Unknown [id number] 2.16.84 0.1.211270.3.579.2.593 1954 Unknown [id number] 2.16.84 0.1.575202.3.579.2.593 1954 Unknown [id number] 2.16.84 0.1.377862.3.579.2.593 1954 Unknown [id number] 2.16.84 0.1.294388.3.579.2.593 1954 Unknown [id number] 2.16.84 0.1.488097.3.579.2.593 1954 Unknown [id number] 2.16.84 0.1.589128.3.579.2.593 1954 Unknown [id number] 2.16.84 0.1.756213.3.579.2.593 1954 Unknown [id number] 2.16.84 0.1.209526.3.579.2.593 1954 Unknown [id number] 2.16.84 0.1.576405.3.579.2.593 1954 Unknown [id number] 2.16.84 0.1.597246.3.579.2.593 1954 Unknown [id number] 2.16.84 0.1.871140.3.579.2.593 1954 Unknown [id number] 2.16.84 0.1.655085.3.579.2.593 1954 Unknown [id number] 2.16.84 0.1.855761.3.579.2.593 1954 Unknown [id number] 2.16.84 0.1.998013.3.579.2.593 1954 Unknown [id number] 2.16.84 0.1.902747.3.579.2.593 1954 Unknown [id number] 2.16.84 0.1.621660.3.579.2.593 1954 Unknown [id number] 2.16.84 0.1.348670.3.579.2.593 Summary Purpose Family History No Family History Records Found Advance Directives No Advanced Directives Records Found Additional Source Comments (unrecognized sect ion and content) No Status Records Found INFORMATION SOURCE (unrecogn ized section and content) DATE CREATED AUTHOR 04/08/2023 [facility] FOR RECORDS PERTAINING TO PATIENTS WHO [...] ON THE PRIMARY CLINICAL RECORDS. [facility] InformedDNA [facility]. provides no warranty or guarantee of the accuracy or completeness of information in this document.
[2025-03-11] MEDS: LIDOCAINE 2% JELLY 10 ML UR (19:20)
[2025-03-11 19:39] LABS: Bilirubin Urine NEGATIVE (NEGATIVE); Blood Urine TRACE-I (NEGATIVE); Clarity Urine CLEAR (CLEAR); Color Urine LT. YELLOW (YELLOW); Glucose Urine UA >=1000 mg/dL (NEGATIVE); Ketones Urine NEGATIVE (NEGATIVE); Leukocyte Esterase Urine NEGATIVE (NEGATIVE); Nitrite Urine NEGATIVE (NEGATIVE); Protein Urine NEGATIVE (NEG/TRACE); Urobilinogen Urine 0.2 EU/dL (0.2-1.0); pH Urine 5.5 (5.0-9.0)
--- NOTE | 2025-03-11 19:40 | ED_ITS ---
HPI - Male Genitourinary General Chief complaint: Urogenital-Male Stated complaint: PAIN Time Seen by Provider: 03/11/25 19:27 Source: patient Mode of arrival: Wheelchair Limitations: no limitations History of Present Illness HPI Narrative: patient presents complaining today he is not able to urinate. Has pain of his abdomen and penis. No fever, nausea or vomiting. Denies similar problem in the past Related Data Home Medications ?Medication ?Instructions ?Recorded ?Confirmed albuterol sulfate 90 mcg/actuation 2 inh inhalation Q6H PRN shortness 03/13/24 02/20/25 aerosol inhaler of breath or wheezing glimepiride 2 mg tablet 2 mg PO DAILY hyperglycemia 03/11/25 03/11/25 Previous Rx's ?Medication ?Instructions ?Recorded ipratropium 0.5 mg-albuterol 3 mg 3 ml inhalation Q4H PRN shortness 12/10/24 (2.5 mg base)/3 mL nebulization of breath #90 mL soln albuterol sulfate 2.5 mg/3 mL 2.5 mg (3 mL) inhalation Q6H PRN 01/24/25 (0.083 %) solution for nebulization shortness of breath or wheezing #90 mL losartan 100 mg tablet 100 mg PO DAILY #30 tabs 01/27/25 Allergies Allergy/AdvReac Type Severity Reaction Status Date / Time No Known Drug Allergies Allergy Verified 03/11/25 19:13 Review of Systems ROS Status of ROS 10 or more systems reviewed and unremark able except as noted in history and below [facility] Medical History Hypokalemia ?E87.6 - Hypokalemia (ICD-10) New onset type 2 diabetes mellitus ?E11.9 - Type 2 diabetes mellitus without complications (ICD-10) Lower extremity edema ?R60.0 - Localized edema (ICD-10) Edema ?R60.9 - Edema, unspecified (ICD-10) Acute hyperglycemia ?R73.9 - Hyperglycemia, unspecified (ICD-10) Tobacco abuse ?Z72.0 - Tobacco use (ICD-10) HTN (hypertension) ?I10 - Essential (primary) hypertension (ICD-10) Community acquired pneumonia ?J18.9 - Pneumonia, unspecified organism (ICD-10) Chronic obstructive pulmonary disease ?J44.9 - Chronic obstructive pulmonary disease, unspecified (ICD-10) Acute exacerbation of chronic obstructive pulmonary disease (COPD) ?J44.1 - Chronic obstructive pulmonary disease with (acute) exacerbation (ICD-10) RLL pneumonia ?J18.9 - Pneumonia, unspecified organism (ICD-10) COPD (chronic obstructive pulmonary disease) ?J44.9 - Chronic obstructive pulmonary disease, unspecified (ICD-10) Surgical History Hx of tonsillectomy ?Z90.89 - Acquired absence of other organs (ICD-10) Family History Mother Family history of cancer Family history of hypertension Father Family history of cancer Social History Within the past year, how often did you have a drink containing alcohol: 4 or more times a week Within the past year, how many standard drinks containing alcohol did you have on a typical day: 3 or 4 Within the past year, how often did you have six or more drinks on one occasion: less than monthly Total score: 3 Score interpretation: A score of 4 or more indicates drinking is likely to affe ct patient's safety. Smoking status: Current every day smoker Non-prescribed substance use: cannabis (any form) Previous occupational history: retired Highest level of school completed/degree received: high school graduate Are you now , , , , never or living with a partner: In a typical week, how many times do you talk on the telephone with family, friends, or neighbors: twice per week How often do you get together with friends or relatives: once per week How often do you attend spiritism or denominational services: never Do you belong to any clubs or organizations such as spiritism groups unions, fraternal or athletic groups, or school groups: no Total score: 1 Score interpretation: A score of less than or equal to 1 indicates the most socially isolated. Little interest or pleasure in doing things: not at all Feeling down, depressed, or hopeless: not at all Feel stressed/tense/nervous/anxious/difficulty sleeping: not at all Do you think of yourself as: straight/heterosexual Gender Identity: male Exam Constitutional Vital Signs, click to edit/add: Last Vital Signs Temp 98.8 F 03/11/25 19:10 Pulse 81 03/11/25 19:10 Resp 18 03/11/25 19:10 BP 177/99 H 03/11/25 20:14 Pulse Ox 94 L 03/11/25 19:10 O2 Del Method Room Air 03/11/25 19:10 Common normals: no apparent distress, average body habitus, oriented x3, no limitations, healthy appearing, alert and well nourished [facility] Common normals: normocephalic and head/scalp atraumatic Eye Common normals: EOMs intact bilaterally and conjunctivae normal Respiratory Common normals: normal respiratory effort, no retractions, no use of accessory muscles and clear to auscultation bilaterally Cardio Common normals: regular rate, regular rhythm, S1 normal heart sound and S2 normal heart sound GI Other: suprapubic fullness and mild tenderness Extremity Common normals: normal to inspection and full ROM Neuro Common normals: oriented x3, CN's II-XII intact bilaterally, moves all extremities and no focal motor deficits Psych Appearance: grossly normal Course Vital Signs Vital signs: Vital Signs Temperature 98.8 F 03/11/25 19:10 Pulse Rate 81 03/11/25 19:10 Respiratory Rate 18 03/11/25 19:10 Blood Pressure 212/122 H 03/11/25 19:10 Pulse Oximetry 94 L 03/11/25 19:10 Oxygen Delivery Method Room Air 03/11/25 19:10 Temperature 98.8 F 03/11/25 19:10 Pulse Rate 81 03/11/25 19:10 Respiratory Rate 18 03/11/25 19:10 Blood Pressure 177/99 H 03/11/25 20:14 Pulse Oximetry 94 L 03/11/25 19:10 Oxygen Delivery Method Room Air 03/11/25 19:10 MDM - Male Genitourinary MDM Narrative Medical decision making narrative: patient presents with urinary retention. No back pain. complains of lower abdomen and penis pain. Josue placed by nursing with drainage 700cc urine. Patient is now feeling better and UA ordered. UA returned without evidence of infection but glucosuria. POC BS 300. Patient informed. States he is prediabetic. He does not feel ill. No nausea. Patient informed he is diabetic at this time advised to follow up with a family doctor to treat his diabetes and to follow up with Urology regarding his urinary retention. Prescribed Amaryl 2mg qd until he is seen by his PCP Lab Data Labs: Lab Results 03/11/25 03/11/25 Range/Units 19:22 20:28 Urine Color Lt. yellow (YELLOW) Urine Clarity Clear (CLEAR) Urine pH 5.5 (5.0-9.0) Ur Specific [place] 1.010 (1.005-1.025) Urine Protein Negative (NEG/TRACE) mg/dL Urine Glucose (UA) >=1000 A (NEGATIVE) mg/dL Urine Ketones Negative (NEGATIVE) mg/dL Urine Occult Blood Trace-i (NEGATIVE) Urine Nitrite Negative (NEGATIVE) Urine Bilirubin Negative (NEGATIVE) Urine Urobilinogen 0.2 (0.2-1.0) EU/dL Ur Leukocyte Esterase Negative (NEGATIVE) Urine RBC 0-2 (0-2) #/HPF Urine WBC 0-2 A (NONE SEEN) #/HPF Ur Squamous Epith Cells Rare (NONE/RARE) #/LPF Urine Crystals None seen (None Seen) #/HPF Urine Bacteria Trace A (NONE SEEN) #/HPF Urine Casts None seen (NONE SEEN) #/LPF Urine Mucus None seen (NONE SEEN) Ur Culture Indicated? No POC Glucose 300 H (74-106) mg/dL Discharge Plan Discharge Chief Complaint: Urogenital-Male Clinical Impression: Acute urinary retention, Hyperglycemia Patient Disposition: Home, Self-Care Prescriptions / Home Meds: No Action albuterol sulfate 90 mcg/actuation HFA aerosol inhaler 2 inh inhalation Q6H PRN (Reason: shortness of breath or wheezing) albuterol sulfate 2.5 mg /3 mL (0.083 %) solution for nebulization 2.5 mg inhalation Q6H PRN (Reason: shortness of breath or wheezing) Qty: 90 0RF glimepiride 2 mg tablet 2 mg PO DAILY Patient Comments: 03/11/2025 Rx Instructions: daily x 15 days. Follow up with your PCP ipratropium-albuterol 0.5 mg-3 mg(2.5 mg base)/3 mL solution for nebulization 3 ml inhalation Q4H PRN (Reason: shortness of breath) Qty: 90 0RF Rx Instructions: until breathing returns to target peak flow/parameters losartan 100 mg tablet 100 mg PO DAILY Qty: 30 0RF Print Language: Comoran Instructions: Josue Catheter Placement and Care (ED), Diabetic Hyperglycemia (ED) Additional Instructions: follow up with Urology next week and also follow up with family doctor next week. 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
[2025-03-11 19:50] LABS: Urine Microscopic Indicated YES
[2025-03-11 19:52] LABS: Bacteria Urine TRACE #/HPF (NONE SEEN); Crystals Seen? None Seen #/HPF (None Seen); Mucus Urine NONE SEEN (NONE SEEN); RBC Urine 0-2 #/HPF (0-2); Squamous Epithelial Cell Urine RARE #/LPF (NONE/RARE); WBC Urine 0-2 #/HPF (NONE SEEN)
[2025-03-11 19:53] LABS: Cast Seen? NONE SEEN #/LPF (NONE SEEN); Urine Culture Indicated NO
[2025-03-11 20:14] VITALS: BP 177/99
[2025-03-11 20:29] LABS: Glucometer 300 mg/dL (74-106)
[2025-03-11 21:30] VITALS: BP 170/95; PULSE 75; O2SAT 94
== END 2025-03-11 21:36 | disposition home or self-care (01) ==
PROVIDERS: Emergency Provider Internal Medicine
DX: R33.9 Retention of urine, unspecified (principal); R10.30 Lower abdominal pain, unspecified; F17.200 Nicotine dependence, unspecified, uncomplicated; R73.9 Hyperglycemia, unspecified
CPT/HCPCS: 36415; 51702; 81001; 99284

== ENCOUNTER 2025-03-28 18:00 | Emergency (ER) | payer MEDICARE, SELFPAY ==
[2025-03-28 18:13] VITALS: BP 190/110; PULSE 67; TEMP 36.6; O2SAT 96; BMI 23.7
[2025-03-28 18:58] VITALS: O2SAT 96
--- NOTE | 2025-03-28 19:28 | ED_ITS ---
HPI - Male Genitourinary General Chief complaint: Urogenital-Male Stated complaint: catheter possibly leaking Time Seen by Provider: 03/28/25 19:16 Source: patient Mode of arrival: Wheelchair Limitations: no limitations History of Present Illness HPI Narrative: urinary retention. seen here 03/11/25 for urinary retention and min cathter placed. He never did follow up with Urology. States he loss the phone # to co ntact urology and came here to have the catheter removed. He is having no problems otherwise at this time. The catheter continues to function well Related Data Home Medications ?Medication ?Instructions ?Recorded ?Confirmed albuterol sulfate 90 mcg/actuation 2 inh inhalation Q6 H PRN shortness 03/13/24 02/20/25 aerosol inhaler of breath or wheezing glimepiride 2 mg tablet 2 mg PO DAILY hyperglycemia 03/11/25 03/11/25 Previous Rx's ?Medication ?Instructions ?Recorded ipratropium 0.5 mg-albuterol 3 mg 3 ml inhalation Q4H PRN shortness 12/10/24 (2.5 mg base)/3 mL nebulization of breath #90 mL soln albuterol sulfate 2.5 mg/3 mL 2.5 mg (3 mL) inhalation Q6H PRN 01/24/25 (0.083 %) solution for nebulization shortness of breat h or wheezing #90 mL losartan 100 mg tablet 100 mg PO DAILY #30 tabs 06/16 Allergies Allergy/AdvReac Type Severity Reaction Status Date / Time No Known Drug Allergies Allergy Verified 03/11/25 19:13 Review of Systems ROS Status of ROS 10 or more systems reviewed and unremark able except as noted in history and below [facility] Medical History Hypokalemia ?E87.6 - Hypokalemia (ICD-10) New onset type 2 diabetes mellitus ?E11.9 - Type 2 diabetes mellitus without complications (ICD-10) Lower extremity edema ?R60.0 - Localized edema (ICD-10) Edema ?R60.9 - Edema, unspecified (ICD-10) Acute hyperglycemia ?R73.9 - Hyperglycemia, unspecified (ICD-10) Tobacco abuse ?Z72.0 - Tobacco use (ICD-10) HTN (hypertension) ?I10 - Essential (primary) hypertension (ICD-10) Community acquired pneumonia ?J18.9 - Pneumonia, unspecified organism (ICD-10) Chronic obstructive pulmonary disease ?J44.9 - Chronic obstructive pulmonary disease, unspecified (ICD-10) Acute exacerbation of chronic obstructive pulmonary disease (COPD) ?J44.1 - Chronic obstructive pulmonary disease with (acute) exacerbation (ICD-10) RLL pneumonia ?J18.9 - Pneumonia, unspecified organism (ICD-10) COPD (chronic obstructive pulmonary disease) ?J44.9 - Chronic obstructive pulmonary disease, unspecified (ICD-10) Surgical History Hx of tonsillectomy ?Z90.89 - Acquired absence of other organs (ICD-10) Family History Mother Family history of cancer Family history of hypertension Father Family history of cancer Social History Within the past year, how often did you have a drink containing alcohol: 4 or more times a week Within the past year, how many standard drinks containing alcohol did you have on a typical day: 3 or 4 Within the past year, how often did you have six or more drinks on one occasion: less than monthly Total score: 3 Score interpretation: A score of 4 or more indicates drinking is likely to affect patient's safety. Smoking status: Current every day smoker Non-prescribed substance use: cannabis (any form) Previous occupational history: retired Highest level of school completed/degree received: high school graduate Are you now , , , , never or living with a partner: In a typical week, how many times do you talk on the telephone with family, friends, or neighbors: twice per week How often do you get together with friends or relatives: once per week How often do you attend christianity or episcopalian services: never Do you belong to any clubs or organizations such as christianity groups unions, fraternal or athletic groups, or school groups: no Total score: 1 Score interpretation: A score of less than or equal to 1 indicates the most socially isolated. Little interest or pleasure in doing things: not at all Feeling down, depressed, or hopeless: not at all Feel stressed/tense/nervous/anxious/difficulty sleeping: not at all Do you think of yourself as: straight/heterosexual Gender Identity: male Exam Constitutional Vital Signs, click to edit/add: Last Vital Signs Temp 97.8 F 03/28/25 18:13 Pulse 67 03/28/25 18:13 Resp 20 03/28/25 18:13 BP 190/110 H 03/28/25 18:13 Pulse Ox 96 03/28/25 18:58 O2 Del Method Room Air 03/28/25 18:58 Common normals: no apparent distress, average body habitus, oriented x3, no limitations, healthy appearing, alert and well nourished [facility] Common normals: normocephalic and head/scalp atraumatic Eye Common normals: PERRL and EOMs intact bilaterally Respiratory Common normals: normal respiratory effort, no retractions, no use of accessory muscles and clear to auscultation bilaterally Cardio Common normals: regular rate, regular rhythm, S1 normal heart sound and S2 normal heart sound Extremity Common normals: normal to inspection Neuro Common normals: oriented x3, CN's II-XII intact bilaterally, moves all extremities and no focal motor deficits Psych Appearance: grossly normal Course Vital Signs Vital signs: Vital Signs Temperature 97.8 F 03/28/25 18:13 Pulse Rate 67 03/28/25 18:13 Respiratory Rate 20 03/28/25 18:13 Blood Pressure 190/110 H 03/28/25 18:13 Pulse Oximetry 96 03/28/25 18:13 Oxygen Delivery Method Room Air 03/28/25 18:13 Temperature 97.8 F 03/28/25 18:13 Pulse Rate 67 03/28/25 18:13 Respiratory Rate 20 03/28/25 18:13 Blood Pressure 190/110 H 03/28/25 18:13 Pulse Oximetry 96 03/28/25 18:58 Oxygen Delivery Method Room Air 03/28/25 18:58 MDM - Male Genitourinary MDM Narrative Medical decision making narrative: patient presents with request to have his Min catheter removed. He had it placed 03/11/25 but did not follow up with Urology. States he loss the phone number. Exam unremarkable. Patient provided phone number for Urology and advised to follow up to have the catheter removed Discharge Plan Discharge Chief Complaint: Urogenital-Male Clinical Impression: Urinary retention Patient Disposition: Home, Self-Care Prescriptions / Home Meds: No Action albuterol sulfate 90 mcg/actuation HFA aerosol inhaler 2 inh inhalation Q6H PRN (Reason: shortness of breath or wheezing) albuterol sulfate 2.5 mg /3 mL (0.083 %) solution for nebulization 2.5 mg inhalation Q6H PRN (Reason: shortness of breath or wheezing) Qty: 90 0RF glimepiride 2 mg tablet 2 mg PO DAILY Patient Comments: 03/11/2025 Rx Instructions: daily x 15 days. Follow up with your PCP ipratropium-albuterol 0.5 mg-3 mg(2.5 mg base)/3 mL solution for nebulization 3 ml inhalation Q4H PRN (Reason: shortness of breath) Qty: 90 0RF Rx Instructions: until breathing returns to target peak flow/parameters losartan 100 mg tablet 100 mg PO DAILY Qty: 30 0RF Print Language: Tajik Instructions: Urinary Retention in Men (ED) Additional Instructions: Follow up with Urology. Call office tomorrow for an appointment Referrals: SERG DUENAS [Primary Care Provider, Unknown] - 1 week
== END 2025-03-28 19:54 | disposition home or self-care (01) ==
PROVIDERS: Emergency Provider Internal Medicine
DX: R33.9 Retention of urine, unspecified (principal); F17.200 Nicotine dependence, unspecified, uncomplicated
CPT/HCPCS: 99283

== ENCOUNTER 2025-03-30 19:01 | Emergency (ER) | payer MEDICARE, SELFPAY ==
[2025-03-30 19:07] VITALS: BP 203/129; PULSE 89; TEMP 36.5; O2SAT 95; BMI 23.7
[2025-03-30 19:18] VITALS: BP 198/120; O2SAT 95
--- NOTE | 2025-03-30 19:27 | ED.GENADUL1 ---
HPI HPI - General Adult General Chief complaint: Extremity Problem, Nontraumatic Stated complaint: SOB Time Seen by Provider: 03/30/25 19:04 Source: patient Mode of arrival: Wheelchair History of Present Illness HPI narrative: This 69-year-old who is well-known to this emergency department and has a history of COPD and hypertension presents for evaluation stating that his feet are swollen and he is mildly short of breath. He was also noted to be hypertensive at triage and states that he does have blood pressure pills at home and stomach pills but he does not like taking pills because he has seen people after taking pills. He denies any chest pain. He does not have a history of COPD. He also request that we call his pharmacy to inquire as to whether or not they have a nebulizer waiting for him. We did call his pharmacy and there is no prescriptions or nebulizers waiting for him to pick remover. I did see this patient several months ago and had to remove the toenail from his great toe on his left foot. At that time it had partially torn off and had to be removed. He was referred to podiatry at that time as he has extremely long hypertrophic toenails that are unable to be removed or cut back in the emergency department. This was explained to him. Patient also has an indwelling Josue catheter at this time due to urinary retention. He states he is urinating normally but would like to have the Josue catheter removed. I explained to him that he may have recurrent urinary retention if we remove it and he states well that is a problem He is extremely poorly kempt. He admits that he sits for long periods of time in his chair with his legs dangling while watching TV. He also states that he likes to eat a lot of salt. I explained to him that a large amount of salt in his diet will cause him to have fluid retention in his legs and feet. Related Data Home Medications ?Medication ?Instructions ?Recorded ?Confirmed albuterol sulfate 90 mcg/actuation 2 inh inhalation Q6H PRN shortness 03/13/24 02/20/25 aerosol inhaler of breath or wheezing glimepiride 2 mg tablet 2 mg PO DAILY hyperglycemia 03/11/25 03/11/25 Previous Rx's ?Medication ?Instructions ?Recorded ipratropium 0.5 mg-albuterol 3 mg 3 ml inhalation Q4H PRN shortness 12/10/24 (2.5 mg base)/3 mL nebulization of breath #90 mL soln albuterol sulfate 2.5 mg/3 mL 2.5 mg (3 mL) inhalation Q6H PRN 01/24/25 (0.083 %) solution for nebulization shortness of breath or wheezing #90 mL losartan 100 mg tablet 100 mg PO DAILY #30 tabs 01/27/25 Allergies Allergy/AdvReac Type Severity Reaction Status Date / Time No Known Drug Allergies Allergy Verified 03/11/25 19:13 Opioid HPI Opioid Management Most Recent Opioid Data: Last Pain Scale 3 01/27/25, 19:02 Last ORT Total Score 0 01/29/24, 06:36 Last ORT Risk Category Low Risk 01/29/24, 06:36 Review of Systems ROS Status of ROS 10 or more systems reviewed and unremarkable except as noted in history and below [facility] Medical History Hypokalemia ?E87.6 - Hypokalemia (ICD-10) New onset type 2 diabetes mellitus ?E11.9 - Type 2 diabetes mellitus without complications (ICD-10) Lower extremity edema ?R60.0 - Localized edema (ICD-10) Edema ?R60.9 - Edema, unspecified (ICD-10) Acute hyperglycemia ?R73.9 - Hyperglycemia, unspecified (ICD-10) Tobacco abuse ?Z72.0 - Tobacco use (ICD-10) HTN (hypertension) ?I10 - Essential (primary) hypertension (ICD-10) Community acquired pneumonia ?J18.9 - Pneumonia, unspecified organism (ICD-10) Chronic obstructive pulmonary disease ?J44.9 - Chronic obstructive pulmonary disease, unspecified (ICD-10) Acute exacerbation of chronic obstructive pulmonary disease (COPD) ?J44.1 - Chronic obstructive pulmonary disease with (acute) exacerbation (ICD-10) RLL pneumonia ?J18.9 - Pneumonia, unspecified organism (ICD-10) COPD (chronic obstructive pulmonary disease) ?J44.9 - Chronic obstructive pulmonary disease, unspecified (ICD-10) Surgical History Hx of tonsillectomy ?Z90.89 - Acquired absence of other organs (ICD-10) Family History Mother Family history of cancer Family history of hypertension Father Family history of cancer Social History Within the past year, how often did you have a drink containing alcohol: 4 or more times a week Within the past year, how many standard drinks containing alcohol did you have on a typical day: 3 or 4 Within the past year, how often did you have six or more drinks on one occasion: less than monthly Total score: 3 Score interpretation: A score of 4 or more indicates drinking is likely to affect patient's safety. Smoking status: Current every day smoker Non-prescribed substance use: cannabis (any form) Previous occupational history: retired Highest level of school completed/degree received: high school graduate Are you now , , , , never or living with a partner: In a typical week, how many times do you talk on the telephone with family, friends, or neighbors: twice per week How often do you get together with friends or relatives: once per week How often do you attend methodist or mandaen services: never Do you belong to any clubs or organizations such as methodist groups unions, fraternal or athletic groups, or school groups: no Total score: 1 Score interpretation: A score of less than or equal to 1 indicates the most socially isolated. Little interest or pleasure in doing things: not at all Feeling down, depressed, or hopeless: not at all Feel stressed/tense/nervous/anxious/difficulty sleeping: not at all Do you think of yourself as: straight/heterosexual Gender Identity: male Exam Narrative Exam Narrative: Vital signs and Nursing Notes reviewed: Patient is afebrile with a normal pulse, blood pressure is elevated at 198/120, he is not hypoxic with pulse ox of 95% on room air General: Awake, alert, oriented, poorly kempt, no acute distress, sitting in a chair watching television HEENT: Normocephalic atraumatic, mucous membranes are moist and pink, eyes are clear, normal conjunctiva, vision is grossly intact Neck: Supple, no JVD Chest: Lungs are diffusely diminished with occasional expiratory wheezing, no rhonchi or rales appreciated no respiratory distress noted, pulse ox is normal at 95% on room air CVS: Regular rate and rhythm S1-S2, no murmurs rubs or gallops, pulses are brisk and equal bilaterally ABD: Soft, nondistended, nontender, no rebound guarding or rigidity, bowel sounds are normal, no pulsatile masses appreciated Extremities: Moving all extremities, feet are dirty, toenails are hypertrophic, there is mild edema to the feet and ankle area. There is no calf tenderness or swelling noted. The toenail that I removed several months ago on the left foot is growing back without any sign of cellulitis or notable foot infection Skin: Normal in appearance without rash,pallor, petechiae or purpura Neuro: No focal deficits Constitutional Vital Signs, click to edit/add: Last Vital Signs Temp 97.7 F 03/30/25 19:07 Pulse 84 03/30/25 20:03 Resp 18 03/30/25 20:03 BP 198/120 H 03/30/25 19:18 Pulse Ox 95 03/30/25 20:03 O2 Del Method Room Air 03/30/25 20:03 Course Vital Signs Vital signs: Vital Signs Temperature 97.7 F 03/30/25 19:07 Pulse Rate 89 03/30/25 19:07 Respiratory Rate 20 03/30/25 19:07 Blood Pressure 203/129 H 03/30/25 19:07 Pulse Oximetry 95 03/30/25 19:07 Oxygen Delivery Method Room Air 03/30/25 19:07 Temperature 97.7 F 03/30/25 19:07 Pulse Rate 84 03/30/25 20:03 Respiratory Rate 18 03/30/25 20:03 Blood Pressure 198/120 H 03/30/25 19:18 Pulse Oximetry 95 03/30/25 20:03 Oxygen Delivery Method Room Air 03/30/25 20:03 Medical Decision Making MDM Narrative Medical decision making narrative: This 69-year-old male presents for evaluation of foot swelling, shortness of breath and requesting to have his Josue catheter removed. He was recently seen in this emergency department for urinary retention and had a Josue catheter placed. I explained to him that if we take it out he may have recurrent urinary retention and he decided that he would keep it in place. It is draining normally and not causing him any trouble. He is not having any pain in his urethra, abdominal pain or back pain. He continues to smoke and has COPD. His lungs were fairly clear today with mild expiratory wheezing and he was given a respiratory treatment with clinical improvement. He was also given an albuterol MDI to take home. He is well-known to this facility and is extremely noncompliant with his medications. He was also noted to have markedly elevated blood pressure at triage. He states he has blood pressure pills at home and stomach medication but he is afraid to take the pills. He was given a dose of losartan in the emergency department in addition to the respiratory treatment. He has extremely poor hygiene and his feet are dirty and mildly swollen. Pulses are normal. There is no calf swelling or tenderness. He does admit that he eats a very high salt diet and sits all day with his feet dangling in his chair while watching TV. I explained to him that cutting back on his salt would both help his blood pressure and the swelling in his feet. His feet were soaked in warm soapy water. I encouraged him to buy some Desmos salt water and soak his feet on a routine basis to help keep them clean and he will be referred to outpatient podiatry. After his breathing treatment and foot soak he was ready to be discharged home. He was encouraged to continue taking his blood pressure medication as his blood pressure was markedly elevated. I explained to him that this increases his stroke and risk of a heart attack. He states he did not know that and will try to be more compliant in the future. Discharge Plan Discharge Chief Complaint: Extremity Problem, Nontraumatic Clinical Impression: Foot swelling, Hypertension, COPD (chronic obstructive pulmonary disease) Patient Disposition: Home, Self-Care Time of Disposition Decision: 20:17 Condition: Good Prescriptions / Home Meds: No Action albuterol sulfate 90 mcg/actuation HFA aerosol inhaler 2 inh inhalation Q6H PRN (Reason: shortness of breath or wheezing) albuterol sulfate 2.5 mg /3 mL (0.083 %) solution for nebulization 2.5 mg inhalation Q6H PRN (Reason: shortness of breath or wheezing) Qty: 90 0RF glimepiride 2 mg tablet 2 mg PO DAILY Patient Comments: 03/11/2025 Rx Instructions: daily x 15 days. Follow up with your PCP ipratropium-albuterol 0.5 mg-3 mg(2.5 mg base)/3 mL solution for nebulization 3 ml inhalation Q4H PRN (Reason: shortness of breath) Qty: 90 0RF Rx Instructions: until breathing returns to target peak flow/parameters losartan 100 mg tablet 100 mg PO DAILY Qty: 30 0RF Print Language: Indonesian Instructions: COPD (Chronic Obstructive Pulmonary Disease) (ED), Low-Sodium Diet (ED), Hypertension (ED) Referrals: SERG DUENAS [Primary Care Provider, Unknown] - 1 week Steven Dugan DPM [Physician, Podiatry] - 1 week
[2025-03-30] MEDS: IPRATROPIUM/ALBUTEROL SULFATE 3 ML AMPUL.NEB IH (20:01)
[2025-03-30 20:03] VITALS: PULSE 84; O2SAT 95
[2025-03-30] MEDS: ALBUTEROL SULFATE 200 PUFF/6.7 GM INHALER IH (20:05)
--- NOTE | 2025-03-30 20:06 | RESP.RT ---
Albuterol inhaler given to patient to take home.
[2025-03-30 20:15] VITALS: BP 198/120
[2025-03-30] MEDS: LOSARTAN POTASSIUM 50 MG TABLET 100 MG PO (20:15)
[2025-03-30 20:37] VITALS: PULSE 77; O2SAT 96
--- NOTE | 2025-03-30 20:37 | PC.NURSE ---
no resp or cardiac distress observed at time of d/c.
== END 2025-03-30 20:38 | disposition home or self-care (01) ==
PROVIDERS: Emergency Provider Emergency Medicine
DX: M79.89 Other specified soft tissue disorders (principal); R06.02 Shortness of breath; I10 Essential (primary) hypertension; J44.9 Chronic obstructive pulmonary disease, unspecified; F17.200 Nicotine dependence, unspecified, uncomplicated; Z91.148 Patient's other noncompliance with medication regimen for other reason
CPT/HCPCS: 71045; 94640; 99284

== ENCOUNTER 2025-04-12 19:20 | Emergency (ER) | payer MEDICARE, SELFPAY ==
--- OUTSIDE RECORDS SUMMARY | 2024-02-12 06:22 | XMS_ITS ---
Author Organization [facility] [place] Address [address] [place] [address] Care Team Providers Care Personnel Quality Assurance Auditor Name Role Phone None, Unknown or Primary Care Provider Unavailab YELITZA Heart Unavailable [phone] Medications Medication SIG (Take, Route, Frequency, Duration) Notes Start Date End Date Status Potassium Chloride Maegan ER 20 MEQ TAKE ONE TABLET BY MOUTH ONCE DAILY Oral for 30 days Active Encounters Encounter Location Date Provider Diagnosis [address] [place] [address] 02/12/2024 YELITZA AMIN Plan Of Treatment Medication Medication Name Sig Start Date Stop Date Notes Potassium Chloride Maegan ER 2 0 MEQ TAKE ONE TABLET BY MOUTH ONCE DAILY Oral for 30 days Progress Notes * MARY LOU, Nic RDOB:[birth year] (68 yo M)Acc No.[id number]:02/12/2024 Patient: Trae beal Nic Ribeiro :1955 A ge:68 Y S ex:Male Address:[address] [place] [address] [address], [place], [address] * Refills Refill Potassium Chloride Maegan ER Tablet Extended Release, 20 MEQ, Oral, 30, TAKE ONE TABLET BY MOUTH ONCE DAILY, 30 days, Refills=11 Subjective: * Chief Complaints: * * Medical History: * Surgical History: * Hospitalization/Major Diagno stic Procedure: * Medications: Objective: Assessment: Plan: * Treatment: * Procedure Codes: * true * Date: Generated for Printi ng/Faxing/eTransmitting on: 0 04/12/2025 07:28 PM EDT
--- OUTSIDE RECORDS SUMMARY | 2024-03-07 04:45 | XMS_ITS ---
Author Organization [facility] [place] Address [address] [place] [address] Care Team Providers Care Chef Concierge Name Role Phone None, Unknown or Primary Care Provider Unavailab YELITZA Heart Unavailable [phone] REASON FOR VISIT Follow Up- call denied Encounters Encounter Location Date Provider Diagnosis [address] [address] 03/07/2024 YELITZA AMIN Plan Of Treatment No Information Progress Notes * Nic GARCÍA RDOB:[birth year] (68 yo M)Acc No.[id number]:03/07/2024 Patient: Trae Nic HANSEN :1955 A ge:68 Y S ex:Male Address:[address] [place] [address] [address], [place], [address] * true * Date: Generated for Melaniei ng/Fachuckg/eTransmitting on: 0 04/12/2025 07:27 PM EDT
--- OUTSIDE RECORDS SUMMARY | 2024-05-06 10:00 | XMS_ITS ---
Author Organization The [facility] [place] Address [address] [place] [address] Care Team Providers Care Gaming Department Head Name Role Phone None, Unknown or Primary Care Provider Unavailab YELITZA Heart Unavailable [phone] REASON FOR VISIT 3 mos f/u Encounters Encounter Location Date Provider Diagnosis [address] [address] 05/06/2024 YELITZA HUSSEIN Plan Of Treatment No Information Progress Notes * Nic GARCÍA RDOB:[birth year] (69 yo M)Acc No.[id number]:05/06/2024 UNLOCKED PROGRESS NOTE Progress Note Patient: Nic TA Provider: Justin Hussein CNP :1955 A ge:68 Y S ex:Male Date:05/06/2024 Address:[address] [place] [address] [address] [place], [place] [id number] Pcp:Unknown or None Subjective: * Chief Complaints: * 1 . 3 mos f/u. * Medical History: Objective: * Vitals: Assessment: Plan: * Treatment: * * Electronic signature of HELLEN DOE NP on 04/12/2025 at 07:27 PM EDT Sign off status: Pending Visit Status: N /S N/C (No Show/No Charge) * Provider: Justin Hussein CNP Date: 0 05/06/2024 Generated for Printi ng/Fachuckg/eTransmitting on: 0 04/12/2025 07:27 PM EDT
--- OUTSIDE RECORDS SUMMARY | 2025-04-04 16:06 | XMS_ITS | Encounter Summary ---
Author Organization [facility] [employer] [facility] Address [address] [place] [address] Care Team Providers Care Retail Aide Name Role Phone Unavailable Primary Care Provider Unavailabl e Reason for Visit * Reason Comments Shortness of Breath Pt reports sob at hi s baseline d/t copd. Today used his inhalers with no relief and sob increased. * Auth/Cert Specialty Diagnoses / Procedures Referred By Contac t Referred To Contact Diagnoses Acute respiratory failure with hypoxia (HCC) Joey Cornejo MD [address] [place] [address] [address] [place] [address] Phone: tel: fax: [facility] [id number] [facility] [address] [place] [address] Referral ID Status Reason Start Date Expiration Date Visits Re quested Visits Authorized [id number] 1 1 Encounter Details Date Type Department Care Team (Late st Contact Info) Description 04/04/2025 4:06 PM EDT - 04/06/2025 6:40 PM EDT Hospital Encounter [facility] [address] [place] [id number] Kym Espino DO [address] [facility] [place] [address] Libia Amos DO [address] [place] [address] [place] [address] Joey Cornejo MD [address] [place] [address] [address] [place] [address] COPD with acute exacerbation (HCC) (Primary Dx); Hypoxia; Hypertensive urgency; Diabetes mellitus, new onset (HCC); Shortness of breath; Abnormal stress test; Idiopathic cardiomyopathy (HCC); New onset type 2 diabetes mellitus (HCC); Coronary artery disease involving [place] coronary artery of [place] heart without angina pectoris Discharge Disposition: Home or Self Care Social History Tobacco Use Types Packs/Day Years Used Date Smoking Tobacco: Every Day Cigarettes 2 58.4 Started: 1967 Smokeless Tobacco: Former Chew Tobacco Cessation:Ready to Q uit: Not Asked; Counseling Given: Not Answered Alcohol Use Standard Drinks/Week Comments Yes 10 (1 standard drink = 0.6 oz pu re alcohol) [facility] Utilities Answer Date Recorded In the past 12 months has th e Pager, gas, oil, or water InterviewBest threatened to shut off services in your home? No 04/05/2025 AUDIT-C Answer Date Recorded Q1: How often do you have a drink containing alc ohol? 2-3 times a week 04/05/2025 Q2: How many drinks containi ng alcohol do you have on a typical day when you are drinking? 1 or 2 04/05/2025 Q3: How often do you have si x or more drinks on one occasion? Never 04/05/2025 Hunger Vital Sign Answer Date Recorded Within the past 12 months, y ou worried that your food would run out before you got the money to buy more. Never true 04/05/20 25 Within the past 12 months, t he food you bought just didn't last and you didn't have money to get more. Never true 04/05/2025 PRAPARE - Transportation Answer Date Re corded In the past 12 months, has l ack of transportation kept you from medical appointments or from getting medications? No 03/23 In the past 12 months, has l ack of transportation kept you from meetings, work, or from getting things needed for daily living? No 04/05/2025 Housing Stability Vital Sign Answer Campbell e Recorded In the last 12 months, was t here a time when you were not able to pay the mortgage or rent on time? No 04/05/2025 In the past 12 months, how m any times have you moved where you were living? 0 04/05/2025 At any time in the past 12 m [facility], were you homeless or living in a fpc (including now)? No 04/05/2025 Food Insecurity Answer Date Recorded Within the past 12 months, y ou worried that your food would run out before you got the money to buy more. 1 04/05/2025 Within the past 12 months, t he food you bought just didn't last and you didn't have money to get more. 1 04/05/2025 Interpersonal Safety Domain Source: IP Abuse Scr eening Answer Date Recorded Physical abuse Denies 04/05/2025 Verbal abuse Denies 04/05/2025 Emotional abuse Denies 04/05/2025 Financial abuse Denies 04/05/2025 Sexual abuse Denies 04/05/2025 Sex and Gender Information Value Date Recorded Sex Assigned at Not on file Legal Sex Male 8:44 PM EST Gender Identity Not on file Sexual Orientation Not on file documented as of this encounter Last Filed Vital Signs Vital Sign Reading Time Taken Comments Blood Pressure 142/71 04/06/2025 5:45 PM EDT Pulse 63 04/06/2025 5:45 PM EDT Temperature 36.8 C (98.3 F) 04/06/2025 3:35 PM EDT Respiratory Rate 18 04/06/2025 5:45 PM EDT Oxygen Saturation 91% 04/06/2025 5:15 PM EDT Inhaled Oxygen Concentration - - Weight 73.2 kg (161 lb 6 oz) 04/06/2025 4:03 AM EDT Height 180.3 cm (5' 10.98 ) 04/05/2025 9:13 AM E DT Body Mass Index 22.52 04/05/2025 9:13 AM EDT documented in this encounter Functional Status documented as of this encounter Discharge Summaries * Afshan Santos, E COMMERCE SOLUTION ARCHITECT - COUNTERSINKER BALANCE SCREW HOLE - 04/06/2025 4:17 PM EDT Discharge Summary Nic García : 1955 Admit date: 04/04/2025 Discharge date: 04/06/2025 Admitting Physician: Joey Cornejo MD Discharge Diagnoses: Principal Problem: Acute respiratory failure with hypoxia (HCC) Active Problems: COPD exacerbation (HCC) Uncontrolled hypertension New onset type 2 diabetes mellitus (HCC) Resolved Problems: * No resolved hospital problems. * Hospital Course: Nic García is a 69 y.o. male admitted with acute respiratory failure with hypoxia. He presented with complaints of shortness of breath. Symptom onset several days. He stated hehad been using his albuterol inhaler without much relief. He does have a nebulizer but not medicinefor it. Patient reported increased wheezing and dry cough. He does have history of COPD and a dailysmoker as well as marijuana. He does have history of hypertension borderline diabetes but has not been taken medications. Upon arrival patient was hypertensive with blood pressure of 200/102. He was hypoxic at 88%. He was placed on 2 L of oxygen. He was afebrile. He was slightly tachycardic at 104. Patient does not follow with PCP. Glucose upon arrival was 563. He does report polydipsia and polyuria. Troponin was 42 and 55 which appeared to be baseline on chart review. Beta-hydroxybutyrate was 0.18. VBG showed a pH of 7.395, pCO2 of 41.8, PO2 99.[address] of [address] chest showed no evidenceof pulmonary embolism or other acute findings. EKG showed sinus rhythm with PACs. He did complain of lower extremity swelling right versus left but venous Doppler was negative for DVT. Patient was initiated on IV labetalol as well as Cardene for his blood pressure. Overall patient's blood pressure had improved and he was placed on Toprol-XL in addition to his losartan and will have HCTZ added. Pat ient's BMP had improved as well as troponins were trended. A1c came back at 12.7 and patient was placed back on metformin as well as started on glyburide 5 mg a day. paraeducator was consulted and met with patient. Patient was also started on baby aspirin and Lipitor due to concern for CAD. Patient did have abnormal stress test and underwent cardiac catheterization which resulted in medication management with no stenting at this time. Patient did have cardiomyopathy seen on echocardiogram which showed EF 40-45%. Moderately reduced left ventricular systolic function. Moderate global hypokinesis with increased wall thickness and grade 1 diastolic dysfunction with normal LAP. Normal systol ic function. No AR or . Mild to moderate MR. Mild TR. Left atrium mildly dilated no pericardial effusion likely due to uncontrolled hypertension. Plan will be to discharge today. Patient has been set up at the [facility] for primary care follow-up. He does have a chronic Min catheter and does follow with urology [facility] will be to discharge today labs next week. Consultants: Dr. Marquez, Cardiology Procedures: Stress test, heart cath Complications: none Discharge Condition: fair Exam: GEN: Awake, alert and oriented x3. EYES: EOMI, pupils equal NECK: Supple. No lymphadenopathy. No carotid bruit CVS: regular rate and rhythm, no audible murmur PULM: diminished , no acute respiratory distress ABD: Bowels sounds normal. Abdomen is soft. No distention. no tenderness to palpation. EXT: Trace edema in the RLE . No calf tenderness. NEURO: Moves all extremities. Motor and sensory are grossly intact SKIN: No rashes. No skin lesions. Significant Diagnostic Studies: Lab Results Component Value Date WBC 13.8 (H) 04/06/2025 HGB 13.8 04/06/2025 PLT 239 04/06/2025 Lab Results Component Value Date BUN 21 04/06/2025 CREATININE 0.8 04/06/2025 NA 134 (L) 04/06/2025 K 3.9 04/06/2025 CALCIUM 8.5 (L) 04/06/2025 CL 96 (L) 04/06/2025 CO2 27 04/06/2025 LABGLOM >90 04/06/2025 No results found for: WBCUA , RBCUA , LEUKOCYTESUR , SPECGRAV , GLUCOSEU , KETUA , PROTEINU , HGBUR , CASTUA , BACTERIA , YEAST Nuclear stress test with myocardial perfusion Result Date: 04/06/2025 Perfusion Defect: There is a left ventricular stress perfusion defect present in the inferior, inferolateral and inferoapical segment(s) that is predominantly fixed. This defect was visualized duringthe stress and rest phases of imaging. The defect appears to be infarction and mango-infarct ischemia. Sum difference score of 6. Perfusion Conclusion: There is no evidence of transient ischemic dilation (TID). ECG: Resting ECG demonstrates normal sinus rhythm. Stress Test: A pharmacological stress test was performed using regadenoson (Lexiscan). The patient reported no symptoms during the stress test. Image quality is good. Stress ECG: There were no arrhythmias during stress. 1.[address] depression in the inferior and inferolateral leads (II, III, aVF, V5 and V6) was noted. There were no noted arrhythmias during recovery. There were no ST changes during recovery. Overall, these cardiac imaging results are most consistent with a intermediate risk for significant reversible coronary artery disease and cardiac events. Additional testing including cardiac catheterization may be i ndicated. The sensitivity for detecting ischemia on this test may have been reduced due the patientbeing on a beta rudy The results of this test were discussed with Afshan Holliday on 04/06/2025 at2:10 pm Assessment and Plan: Patient Active Problem List Diagnosis Date Noted Acute respiratory failure with hypoxia (HCC) 04/04/2025 COPD exacerbation ([facility]) 04/04/2025 Uncontrolled hypertension 04/04/2025 New onset type 2 diabetes mellitus ([facility]) 04/04/2025 Discharge Medications: Medication List START taking these medications aspirin 81 MG chewable tablet Take 1 tablet by mouth daily Start taking on: April 07, 2025 atorvastatin 40 MG tablet Commonly known as: LIPITOR Take 1 tablet by mouth nightly doxycycline hyclate 100 MG tablet Commonly known as: VIBRA-TABS Take 1 tablet by mouth 2 times daily for 5 days glipiZIDE 5 MG tablet Commonly known as: GLUCOTROL Take 1 tablet by mouth every morning (before breakfast) Start taking on: April 07, 2025 losartan-hydroCHLOROthiazide 100-25 MG per tablet Commonly known as: HYZAAR Take 1 tablet by mouth daily metFORMIN 500 MG tablet Commonly known as: GLUCOPHAGE Take 1 tablet by mouth 2 times daily (with meals) metoprolol succinate 25 MG extended release tablet Commonly known as: TOPROL XL Take 1 tablet by mouth daily Start taking on: April 07, 2025 predniSONE 20 MG tablet Commonly known as: DELTASONE Take 1 tablet by mouth 2 times daily for 5 days CONTINUE taking these medications albuterol sulfate HFA 108 (90 Base) MCG/ACT inhaler Commonly known as: Ventolin HFA Inhale 2 puffs into the lungs 4 times daily as needed for Wheezing mupirocin 2 % ointment Commonly known as: BACTROBAN Apply topically 3 times daily for 5 days. omeprazole 10 MG delayed release capsule Commonly known as: PRILOSEC STOP taking these medications losartan 100 MG tablet Commonly known as: COZAAR Where to Get Your Medications These medications were sent to [place] [id number] [facility] - P [phone] - F [phone] [address] [facility], [facility] [address] aspirin 81 MG chewable tablet atorvastatin 40 MG tablet doxycycline hyclate 100 MG tablet glipiZIDE 5 MG tablet losartan-hydroCHLOROthiazide 100-25 MG per tablet metFORMIN 500 MG tablet metoprolol succinate 25 MG extended release tablet predniSONE 20 MG tablet Patient Instructions: Activity: activity as tolerated Diet: cardiac diet Wound Care: none needed Other: None Disposition: Discharge to Home Follow up: Patient will be followed by No primary care provider on file. in 1-2 weeks CORE MEASURES on Discharge (if applicable) JYOTI/ARB in CHF: NA Statin in GA: NA ASA in GA: NA Statin in CVA: NA Antiplatelet in CVA: NA Total time spent on discharge services: 40 minutes Including the following activities: Evaluation and Management of patient Discussion with patient and/or surrogate about current care plan Coordination with Case Management and/or Administrative Underwriter Coordination of care with Consultants (if applicable) Coordination of care with Receiving Facility Physician (if applicable) Completion of DME forms (if applicable) Preparation of Discharge Summary Preparation of Medication Reconciliation Preparation of Discharge Prescriptions Signed: GABRIELA oLve CNP, GABRIELA, APPARATUS ENGINEERING TECHNOLOGIST-C 04/06/2025, 4:18 PM Please note that this chart was generated using voice recognition [employer] dictation software. Although every effort was made to ensure the accuracy of this automated surgical aide, some errors in surgical aide may have occurred. Cosigned by Joey Cornejo MD at 04/06/2025 7:29 PM EDT Associated attestation - Joey Cornejo MD - 04/06/2025 7:29 PM EDT Images from the original note were not included. [address] , [place], [place], [address] Attestation Patient: Nic García Date of Admission: 04/04/2025 4:06 PM Hospital Day # 2 Date of Evaluation: 04/06/2025 I personally evaluated and examined the patient [id number] in conjunction with the PA/APPARATUS ENGINEERING TECHNOLOGIST and agree with the management and dispostition of the patient. Please see the PA/APPARATUS ENGINEERING TECHNOLOGIST's note for full details.My bain findings are: Admission date: 04/04/2025 Discharge date: 04/06/2025 Principle Diagnosis: Acute respiratory failure with hypoxia (HCC) Exam: GEN: Awake, alert and oriented x3. EYES: EOMI, pupils equal NECK: Supple. No lymphadenopathy. No carotid bruit CVS: regular rate and rhythm, systolic murmur PULM: diminished with bilateral expiratory wheezing, no acute respiratory distress ABD: Bowels sounds normal. Abdomen is soft. No distention. no tenderness to palpation. EXT: 1+ edema bilaterally . No calf tenderness. NEURO: Moves all extremities. Motor and sensory are grossly intact SKIN: No rashes. No skin lesions. Disposition: Discharge to Home Follow Up: Follow up with [facility]CP/[facility] in 1-2 weeks Total time spent on discharge services: 40 minutes Including the following activities: Evaluation and Management of patient Discussion with patient and/or surrogate about current care plan Coordination with Case Management and/or Administrative Underwriter Coordination of care with Consultants (if applicable) Coordination of care with Receiving Facility Physician (if applicable) Completion of DME forms (if applicable) Preparation of Discharge Summary Preparation of Medication Reconciliation Preparation of Discharge Prescriptions If there are any worsening or concerning signs or symptoms, patient will report to the ED and/or contact [id number] for immediate evaluation. Teach back method was used. All patient questions answered. Pt voiced understanding. Please note that this chart was generated using voice recognition [employer] dictation software. Although every effort was made to ensure the accuracy of this automated surgical aide, some errors in surgical aide may have occurred. Joey Cornejo MD 04/06/2025 7:28 PM documented in this encounter Discharge Instructions * Discharge Instructions* Kay Thibodeaux RN - 04/06/2025 3:21 PM EDT Discharge Instructions for Cardiac Catheterization A cardiac catheterization is a diagnostic test used to evaluate the health of the heart and its blood vessels. The test is done with a thin catheter carefully threaded into your heart from a leg or arm artery. Most likely, you will be allowed to go home the same day as the procedure. Steps to Take at Home: Pain- apply ice to site 15-20 minutes every hour for the first 2 days. Showering is okay 24 hours after procedure. No soaking in a pool, hot tub, bath tub, or standing water for one week. Bleeding (outward or under the skin-hematoma)- apply firm pressure for 10-15 minutes or until the bleeding stops, then call your doctor. If unable to get bleeding stopped, call 911. Kidney damage- Call if you urinate less than normal, have swelling or feel puffy, and/or gain 2 or more pounds over night in the first week. If procedure was in ARM: You were instructed to keep wrist straight and still for two hours after the procedure. The arm andhand may now be used for normal daily activities except, avoid using the heal of hand while gettingup and down from furniture for the first few days. Keep affected arm elevated, hand higher than elbow, while pressure dressing in place to decrease swelling. 1) Gauze and Elastoplast Remove in 4 hours as follows: TIME 10:00PM Remove 1 piece of tape at a time, waiting 15 -20 minutes between layers to monitor for bleeding. If dressing sticks, place wrist under cool running water to help loosen gauze from site then pat site dry. If hand feels numb, tingly, and/or cold- loosen first 1-2 layers of tape if dressing still in place. If no relief noticed, remove pressure dressing as per above instructions. Seek medical help if no relief or if dressing already off. Diet Drink plenty of fluids after the test to flush the x-ray dye from your system. Return to your normal diet. No alcoholic beverages for 24 hours after the procedure. Sedation The sedative will make you sleepy. Rest until the effects have worn off. Nausea and vomiting from the sedative is normal and usually does not last long. Ask your doctor when you will be able to return to work. Do not drive, operate machinery, do anything that requires attention to detail, or sign important papers for at least 24 hours or until your doctor says it is safe. Do not sit for long periods of time. Try to change positions frequently. Medications Resume taking your normal medicines as advised. Use acetaminophen (Tylenol) for pain relief. (Avoid anti-inflammatory drugs such as- ibuprofen (Advil, Motrin), naproxen sodium (Aleve), Excedrin for a few days) If you had to stop taking these medications before the procedure, ask your doctor when you can resume taking them: Anti-inflammatory drugs Blood thinners, such as warfarin (Coumadin) If you are taking medicines, follow these general guidelines: Take your medicine as directed. Do not change the amount or the schedule. Do not stop taking them without talking to your doctor. Do not share them. Know the side effects and report any to your doctor. Some drugs can be dangerous when mixed. Talk to a doctor or pharmacist if you are taking more than one drug. This includes eahl-[id number]-[id number] medicine and herb or dietary supplements. Plan ahead for refills so you don't run out. Follow-up The test results are available right after the procedure. At that point, the doctor will discuss the findings and suggest appropriate treatment options. In some cases, the results can indicate an immediate need for surgery. Schedule a follow-up appointment as directed by your doctor. Call Your Doctor at [phone] or go to the closest Emergency department if Any of the Following Occurs: Signs of infection- including fever and chills Redness, swelling, increasing pain, feels warm to touch, red streak forming from site, or any discharge from the procedure site. Call 911 If Any of the Following Occurs Drooping facial muscles Changes in vision or speech Difficulty walking or using your limbs Change in sensation, including numbness, feeling cold, or change in color Extreme sweating, nausea or vomiting Dizziness or lightheadedness Chest pain Rapid, irregular heartbeat Palpitations Cough, shortness of breath, or difficulty breathing Weakness or fainting If you think you have an emergency, CALL 911 * Discharge Instr - Activity* Roro Arreola - 04/06/2025 5:48 PM EDT Activity as tolerated * Discharge Instr - Diet* Roro Arreola - 04/06/2025 5:49 PM EDT Good nutrition is important when healing from an illness, injury, or surgery. Follow any nutrition recommendations given to you during your hospital stay. If you were given an oral nutrition supplement while in the hospital, continue to take this supplement at home. You can take it with meals, in-between meals, and/or before bedtime. These supplements can be purchased at most local grocery stores, pharmacies, and [employer]. If you have any questions about your diet or nutrition, call the hospital and ask for the dietitian. Diabetic, low sodium diet documented in this encounter Medications at Time of Discharge aspirin 81 MG chewable tablet Take 1 tablet by mouth daily 30 tablet 3 04/07/2025 glipiZIDE (GLUCOTROL) 5 MG tablet Take 1 tablet by mouth every morning (before breakfast) 60 tablet 3 04/07/2025 metFORMIN (GLUCOPHAGE) 500 MG tablet Take 1 tablet by mouth 2 times daily (with meals) 60 tablet 3 04/06/2025 atorvastatin (LIPITOR) 40 MG tablet Take 1 tablet by mouth nightly 30 tablet 3 04/06/2025 metoprolol succinate (TOPROL XL) 25 MG extended release tablet Take 1 tablet by mouth daily 30 tablet 3 04/07/2025 losartan-hydroCHL OROthiazide (HYZAAR) 100-25 MG per tablet Take 1 tablet by mouth daily 30 tablet 5 04/06/2025 albuterol (PROVENTIL) (2.5 MG/3ML) 0.083% nebulizer solutionIndicatio ns:COPD with acute exacerbation (HCC) Take 3 mLs by nebulization every 4 hours as needed for Wheezing 120 each 3 04/06/2025 albuterol sulfate HFA (VENTOLIN HFA) 108 (90 Base) MCG/ACT inhaler Inhale 2 puffs into the lungs 4 times daily as needed for Wheezing 18 g 03/19/2025 omeprazole (PRILOSEC) 10 MG delayed release capsule Take 1 capsule by mouth daily mupirocin (BACTROBAN) 2 % ointment Apply topically 3 times daily for 5 days. 22 g 05/13/2021 doxycycline hyclate (VIBRA-TABS) 100 MG tablet Take 1 tablet by mouth 2 times daily for 5 days 10 tablet 04/06/2025 predniSONE (DELTASONE) 20 MG tablet Take 1 tablet by mouth 2 times daily for 5 days 10 tablet 04/06/2025 5 documented as of this encounter Progress Notes * Roro Arreola - 04/06/2025 6:40 PM EDT Discharge instructions reviewed, questions answered. Iv removed * Kay Thibodeaux RN - 04/06/2025 4:57 PM EDT All discharge instructions given. All questions answered at this time. All belongings returned. * Haley Lee PTA - 04/06/2025 3:41 PM EDT [facility] Inpatient/Observation/Outpatient Rehabilitation Date: 04/06/2025 Patient Name: Nic García [x] Inpatient Acute/Observation [] Outpatient : 1955 [x] Pt refused/declined therapy at this time due to: PT. Down for testing 1st attempt and declined 2nd attempt stating he is leaving today. [] Pt cancelled due to: [] No Reason Given [] Sick/ill [] Other: [] Evaluation held by RN/Provider/Physical Therapist due to: [] High Heart Rate [] High Blood Pressure [] Orthopedic Consult [] Hgb < 7 [] Other: [] Pt ordered brace per physician request: [] Proper fit will be completed and education for wearing/skin checks [] Pt does not require skilled services due to: Therapist/Information Systems Specialist will attempt to see this patient, at our earliest opportunity. Haley Lee, COMMERCIAL INSTALLER Date: 04/06/2025 Cosigned by Vonnie Pelayo PT at 04/06/2025 4:07 PM EDT * Roslyn Lechuga MSW, BLOOD COORDINATOR - 04/06/2025 3:27 PM EDT [employer] referral made for pt at his request through nursing. CHERELLE Rojas, BLOOD COORDINATOR 04/06/2025 * Roslyn Rodríguez, OT - 04/06/2025 3:18 PM EDT Occupational Therapy Facility/Department: [facility] Daily Treatment Note NAME: Nic García : 1955 Date of Service: 04/06/2025 Discharge Recommendations: Home with assist PRN, Home with nursing informatics specialist, Other (Comment) (Consider meals on wheels or home health aide.) OT Equipment Recommendations Other: OT shared D/C recommendations with RN, who informed social work. Social work plans to contact patient to look into home resources for care. Patient Diagnosis(es): The primary encounter diagnosis was COPD with acute exacerbation (HCC). Diagnoses of Hypoxia, Hypertensive urgency, Diabetes mellitus, new onset (HCC), Shortness of breath, Abnormal stress test, and Idiopathic cardiomyopathy (HCC) were also pertinent to this visit. Assessment Activity Tolerance: Patient tolerated treatment well Discharge Recommendations: Home with assist PRN;Home with nursing informatics specialist;Other (Comment) (Consider meals on wheels or home health aide.) Other: OT shared D/C recommendations with RN, who informed social work. Social work plans to contact patient to look into home resources for care. Plan Occupational Therapy Plan Times Per Day: Once a day Days Per Week: 7 Days Current Treatment Recommendations: Strengthening;Balance training;Functional mobility training;Endurance training;Safety education & training;Equipment evaluation, education, & procurement;Self-Care / ADL;Patient/Caregiver education & training Restrictions Standard; fall risk. Subjective Subjective Subjective: Pt sitting up in chair, aggreeable to OT tx to review ADL safety. Pain: Pt denies. Orientation Overall Orientation Status: Within Functional Limits Pain: denies Cognition Overall Cognitive Status: WFL Objective ADL Toileting: Stand by assistance Functional Mobility: Stand by assistance Functional Mobility Skilled Clinical Factors: FWW to transfer to bathroom ; SBA transfer and sit-stand from toilet and hygiene at sink. OT Exercises Exercise Treatment: Reviewed UE strengthening HEP included as part of D/C folder. Safety Devices Type of Devices: Call light within reach;Chair alarm in place;Nurse notified;Left in chair Patient Education Education Given To: Patient Education Provided: Role of Therapy;Plan of Care Education Provided Comments: Reviewed contents of D/C folder including DME, AE and HEP for B UE strengthening. Education Method: Verbal;Printed Information/Hand-outs Education Outcome: Verbalized understanding Goals Short Term Goals Time Frame for Short Term Goals: 1 week Short Term Goal 1: Pt. will tolerate 15-30 min. functional activity to improve strength for ADL's. Short Term Goal 2: Pt. will engage in self-care to increase Ind. Short Term Goal 3: Pt. will state understanding to safety as relates to ADL's. 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 Patient Goals Patient goals : Get stronger Therapy Time Individual Concurrent Group Co-treatment Time In 1446 Time Out 1506 Minutes 20 Roslyn Rodríguez OT * Davina Nazario RN, BSN - 04/06/2025 2:44 PM EDT Returned to room to see patient for monitor instruction review and answer questions. Patient was able to perform all steps but did not have him actually jasmin finger as he did this yesterday. Informed he would be instructed at discharge when to check glucose levels. Reviewed handout on hypoglycemiaand proper treatment. Encourage no juice, or regular soda at home. Measure milk portion and limit to 8 oz per meal versus drinking from jug. All of his questions are answered. Encourage him to be patient and wait for discharge until medically appropriate to go home to ensure all RX are written and has needed supplies. Office number given to call with questions or concerns. * Roro Arreola - 04/06/2025 2:33 PM EDT Pt continues to refuse to wear telemetry * Roro Arreola - 04/06/2025 2:30 PM EDT Pt reported he had inhaler in room and it is now gone. Nurse looked throughout room and contacted respiratory, inhaler was not found. Myra slater, ux design manager was notified. * Roro Arreola - 04/06/2025 1:00 PM EDT Pt returned from stress test stating that he was not going to wear telemetry because he was leaving. Pt stated he had been here long enough and had things to do. Patient signed ama paper. * Stephan Manriquez RCP - 04/06/2025 11:46 AM EDT RESPIRATORY ASSESSMENT PROTOCOL Patient Name: [facility] Room#: 0322/0322-01 : 1955 Admitting diagnosis: Shortness of breath [R06.02] Hypoxia [R09.02] COPD with acute exacerbation (HCC) [J44.1] Diabetes mellitus, new onset (HCC) [E11.9] Hypertensive urgency [I16.0] Acute respiratory failure with hypoxia (HCC) [J96.01] Medical History: History reviewed. No pertinent past medical history. PATIENT ASSESSMENT LABORATORY DATA Hematology: Lab Results Component Value Date/Time WBC 13.8 04/06/2025 05:55 AM RBC 4.60 04/06/2025 05:55 AM HGB 13.8 04/06/2025 05:55 AM HCT 40.2 04/06/2025 05:55 AM PLT 239 04/06/2025 05:55 AM Chemistry: No results found for: PHART , IZP9WUS , PO2ART , B6HBXSDG , YXG0HSV , PBEA , NBEA VITALS Pulse: 60 Respirations: 18 BP: (!) 165/88 SpO2: 90 % O2 Device: None (Room air) Temp: 98.5 ??F (36.9 ??C) SKIN COLOR [x] Normal [] Pale [] Dusky [] Cyanotic RESPIRATORY PATTERN [] Normal [x] Dyspnea [] Jalen[place] [] Kussmaul [] Biots AMBULATORY [x] Yes [] No [] With Assistance Patient Acuity 0 1 2 3 4 Score Level of Consciousness (LOC) [x] Alert & Oriented or Pt normal LOC [] Confused;follows directions [] Confused & uncooper-ative [] Obtunded [] Comatose 0 Respiratory Rate (RR) [] Reg. rate & pattern. 12 - 20 bpm [] Increased RR. Greater than 20 bpm [x] SOB w/ exertion or RR greater than 24 bpm [] Access- ory muscle use at rest. Abn. resp. [] SOB at rest. 2 Bilateral Breath Sounds (BBS) [] Clear [] Diminish-ed bases [] Diminish-ed t/o, or rales [x] Sporadic, scattered wheezes or rhonchi [] Persistentwheezes and, or absent BBS 3 Cough [x] Strong, effective, & non-prod. [] Effective & prod. Less than 25 ml (2 TBSP) over past 24 hrs [] Ineffective & non-prod to less than 25 ML over past 24 hrs [] Ineffective and, or greater than 25 ml sputum prod. past 24 hrs. [] Nonspon- taneous; Requires suctioning 0 Pulmonary History (PULM HX) [] No smoking and no chronic pulmonary history [] Former smoker. Quit over 12 mos. ago [] Current smoker or quit w/ in 12 mos [] Pulm. History and, or 20 pk/yr smoking hx [x] Admitted w/ acute pulm. dx and, or has been admitted w/ pulm. dx 2 or more times over past 12 mos 4 Surgical History this Admit (SURG HX) [x] No surgery [] General surgery [] Lower abdominal [] Thoracic or upper abdominal [] Thoracic w/ pulm. disease 0 Chest X-Ray (CXR)/CT Scan [x] Clear or not applicable [] Not available [] Atelectasis or pleural effusions [] Localized infiltrate or pulm. edema [] Con-solidated Infiltrates, bilateral, or in more than 1 lobe 0 TOTAL ACUITY: 9 CARE PLAN If Acuity Level is 2, 3, or 4 in any of the following: [x] BILATERAL BREATH SOUNDS (BBS) [x] PULMONARY HISTORY (PULM HX) [x] Respiratory Rate (RR) Goal: Improve respiratory functions in patients with airway disease and decrease WOB [x] AEROSOL PROTOCOL Total Acuity: 14-28 [] Secondary Assessment in 24 hrs Total Acuity: 9-13 [x] Secondary Assessment in 24 hrs Total Acuity: 4-8 [] Secondary Assessment in 24 hrs Total Acuity: 0-3 [] Secondary Assessment in 48 hrs HHN AEROSOL THERAPY with [physician-ordered bronchodilator(s)] q 4 & Albuterol PRN q2 hrs. Breath-Actuated Neb if BBS Acuity = 4, and pt. can use MP. Notify physician if condition deteriorates. HHN AEROSOL THERAPY with [physician-ordered bronchodilator(s)] QID and Albuterol PRN q4 hrs. Breath-Actuated Neb if BBS Acuity = 4, and pt. can use MP. Notify physician if condition deteriorates. MDI THERAPY with 2 actuations of [physician-ordered bronchodilator(s)] via spacer TID Albuterol and PRN q4 hrs. If unable to utilize MDI: HHN [physician-ordered bronchodilator(s)] TID and Albuterol PRN q4 hrs. Notify physician if condition deteriorates. MDI THERAPY with [physician-ordered bronchodilator(s)] via spacer TID PRN. If unable to utilize MDI: HHN [physician-ordered bronchodilator(s)] TID PRN. Notify physician if condition deteriorates. If Acuity Level is 2, 3, or 4 in any of the following: [] COUGH [] SURGICAL HISTORY (SURG HX) [] CHEST XRAY (CXR) Goal: Improvement in sputum mobilization in patients with ineffective airway clearance. Reverse atelectasis. [] Bronchopulmonary Hygiene Protocol Total Acuity: 14-28 [] Secondary Assessment in 24 hrs Total Acuity: 9-13 [] Secondary Assessment in 24 hrs Total Acuity: 4-8 [] Secondary Assessment in 24 hrs Total Acuity: 0-3 [] Secondary Assessment in 48 hrs METANEB QID with [physician-ordered bronchodilator(s)] if CXR Acuity = 4; otherwise: PD&P, Oscillatory Therapy, or Vest QID & PRN AND PEP QID & PRN NT Sxn PRN for ineffective cough METANEB QID with [physician-ordered bronchodilator(s)] if CXR Acuity = 4; otherwise: PD&P, Oscillatory Therapy or Vest QID & PRN AND PEP QID & PRN NT Sxn PRN for ineffective cough PD&P, Oscillatory Therapy, or Vest TID & PRN AND PEP TID & PRN Instruct patient to self-perform IS q1hr WA If Acuity Level is 2 or above in the following: [] PULMONARY HISTORY (PULM HX) Goal: Assist patient in quitting smoking to slow or stop the progression of lung disease. [] Smoking Cessation Protocol SMOKING CESSATION EDUCATION provided according to policy RT_201: (henrique with an X) ____Yes ____ No ____ NA Smoking Cessation Booklet given: ____Yes ____No ____Patient Refused * Roro Arreola - 04/06/2025 11:19 AM EDT Pt taken to stress test * Haley Lee PTA - 04/06/2025 9:25 AM EDT Physical Therapy Facility/Department: [facility] Daily Treatment Note NAME: Nic García : 1955 Date of Service: 04/06/2025 Discharge Recommendations: Continue to assess pending progress, Home with assist PRN, Home independently Patient Diagnosis(es): The primary encounter diagnosis was COPD with acute exacerbation (HCC). Diagnoses of Hypoxia, Hypertensive urgency, Diabetes mellitus, new onset (HCC), and Shortness of breath were also pertinent to this visit. Assessment Assessment: Transfers:CGA with v/c for hand placement with good carryover.seated exercises B LE x20, unable to copmlete 20 marches on B LEs. Gait wiht WW CGA for safety [id number], no noted LOB, forwardflexed posture with short shuffled gait noted. Activity Tolerance: Patient tolerated treatment well Plan Physical Therapy Plan General Plan: 2 times a day 7 days a week Specific Instructions for Next Treatment: once per day on weekends and holidays Current Treatment Recommendations: Strengthening;ROM;Balance training;Functional mobility training;Transfer training;Endurance training;Gait training;Stair training;Neuromuscular re-education;Pain management;Home exercise program;Therapeutic activities Restrictions Restrictions/Precautions Restrictions/Precautions: Fall Risk, General Precautions Subjective Subjective Subjective: Pt. up in chair upon arrival, upset he can't eat but agreeable to therapy at this time. Pain: denies Objective Bed Mobility Training Bed Mobility Training: No Transfer Training Transfer Training: Yes Overall Level of Assistance: Contact guard assistance Interventions: Verbal cues Sit to Stand: Contact guard assistance Stand to Sit: Contact guard assistance Gait Gait Training: Yes Overall Level of Assistance: Contact guard assistance Distance (ft): 100 Feet Assistive Device: Walker, rolling;Gait belt Interventions: Verbal cues Speed/Yvette: Slow Step Length: Left shortened;Right shortened PT Exercises Exercise Treatment: seated exercises B LE x20, unable to copmlete 20 marches on B LEs Safety Devices Type of Devices: Call light within reach;Chair alarm in place;Nurse notified;Left in chair Goals Short Term Goals Time Frame for Short Term Goals: 20 days Short Term Goal 1: Pt to tolerate 20 minutes of ther ex to facilitate return to PLOF. Short Term Goal 2: Pt to ambulate 100' with FWW and 3/10 or less SOB to increase ambulatory capacity for d/c Short Term Goal 3: Pt to complete transfers with standard cane and SBA to demonstrate increased independacne for safety with d/c. Patient Goals Patient Goals : Pt goal to return home Education Patient Education Education Given To: Patient Education Provided: Transfer Training Education Method: Verbal Barriers to Learning: None Education Outcome: Verbalized understanding;Demonstrated understanding Therapy Time Individual Concurrent Group Co-treatment Time In 832 Time Out 0857 Minutes 24 Haley Lee PTA Cosigned by Vonnie Pelayo PT at 04/06/2025 12:27 PM EDT * Roro Arreola - 04/06/2025 7:35 AM EDT Pt resting in chair, denies needs at this time. Vitals and assessment completed. Call light in reach, bed alarm on. Pt agitated after being informed he couldn't have coffee due to stress test being ordered * Afshan Santos APRN - COUNTERSINKER [employer]CRE[employer]LE - 04/06/2025 7:10 AM EDT Progress Note SUBJECTIVE: Patient seen for f/u of Acute respiratory failure with hypoxia (HCC). He resting in bed currently on room air. Assisted to chair with walker and tolerated well. Min is chronic for the past 2 weeks for new urinary retention ROS: Constitutional: negative for fevers, and negative for chills. Respiratory: negative for shortness of breath, negative for cough, and negative for wheezing Cardiovascular: negative for chest pain, and negative for palpitations Gastrointestinal: negative for abdominal pain, negative for nausea,negative for vomiting, negative for diarrhea, and negative for constipation All other systems were reviewed with the patient and are negative unless otherwise stated in HPI OBJECTIVE: Vitals: Vitals: 04/06/25 0528 Pulse: Resp: SpO2: 91% Weight - Scale: 73.2 kg (161 lb 6 oz) Height: 180.3 cm (5' 10.98 ) Weight Wt Readings from Last 3 Encounters: 04/06/25 73.2 kg (161 lb 6 oz) 05/13/21 90.4 kg (199 lb 6.4 oz) Body mass index is 22.52 kg/m??. 24HR INTAKE/OUTPUT: Intake/Output Summary (Last 24 hours) at 04/06/2025 0710 Last data filed at 04/06/2025 0437 Gross per 24 hour Intake 3662 ml Output 2075 ml Net 1587 ml Exam: GEN: Awake, alert and oriented x3. EYES: EOMI, pupils equal NECK: Supple. No lymphadenopathy. No carotid bruit CVS: regular rate and rhythm, no audible murmur PULM: diminished , no acute respiratory distress ABD: Bowels sounds normal. Abdomen is soft. No distention. no tenderness to palpation. EXT: Trace edema in the RLE . No calf tenderness. NEURO: Moves all extremities. Motor and sensory are grossly intact SKIN: No rashes. No skin lesions. Diagnostic Data: Complete Blood Count: Recent Labs 04/04/25162404/05/2570004/06/25 0555 WBC 10.2 10.6 13.8* RBC 4.83 4.77 4.60 HGB 14.6 14.6 13.8 HCT 42.3 41.7 40.2* MCV 87.6 87.4 87.4 MCH 30.2 30.6 30.0 MCHC 34.5 35.0* 34.3 RDW 13.4 13.4 13.6 PLT 233 227 239 MPV 9.4 9.3 9.4 Last 3 Blood Glucose: Recent Labs 04/04/25162404/05/252704/05/2570004/06/25 0555 GLUCOSE 563* 282 203* 346* Comprehensive Metabolic Profile: Recent Labs 04/04/25162404/05/252704/05/2570004/06/25 0555 NA 133* -- 137 134* K 3.7 -- 3.7 3.9 CL 95* -- 98 96* CO2 24 -- 27 27 BUN 10 -- 12 21 CREATININE 0.7 -- 0.6* 0.8 GLUCOSE 563* 282 203* 346* CALCIUM 8.7 -- 8.7 8.5* BILITOT -- -- 0.4 0.3 ALKPHOS -- -- 81 71 AST -- -- 25 24 ALT -- -- 37 35 Urinalysis: No results found for: NITRU , COLORU , PHUR , LABCAST , WBCUA , RBCUA , MUCUS , TRICHOMONAS , YEAST , BACTERIA , CLARITYU , SPECGRAV , LEUKOCYTESUR , UROBILINOGEN , BILIRUBINUR , BLOODU , GLUCOSEU , KETUA , AMORPHOUS HgBA1c: Lab Results Component Value Date/Time LABA1C 12.7 04/04/2025 06:15 PM Troponin: Latest Reference Range & Units 03/19/25 08:54 03/19/25 10:33 04/04/25 16:25 04/04/25 18:15 Troponin, High Sensitivity 0 - 22 ng/L 52 (HH) 47 (H) 42 (H) 55 (HH) (HH): Data is critically high (H): Data is abnormally high BNP: Latest Reference Range & Units 03/19/25 08:54 04/04/25 16:25 04/05/25 07:01 04/06/25 05:55 NT Pro-BNP 0 - 125 pg/mL 1,475 (H) 854 (H) 1,715 (H) 780 (H) (H): Data is abnormally high CRP: Recent Labs 04/04/25 1815 04/05/25 0701 04/06/25 0555 CRP <3.0 <3.0 <3.0 Radiology/Imaging: CT CHEST PULMONARY EMBOLISM W CONTRAST Final Result 1. No evidence of pulmonary embolism or other acute pulmonary abnormality. 2. Calcifications throughout the pancreas typical of chronic pancreatitis. Vascular duplex lower extremity venous bilateral Final Result XR CHEST PORTABLE Final Result No acute abnormality. ASSESSMENT / PLAN: MEDICAL DECISION MAKING: Primary Problem(s): Acute respiratory failure with hypoxia (HCC) Differential diagnoses: COPD exacerbation, viral illness, pneumonia, PE Condition is 1 or more chronic illnesses with severe exacerbation, progression, or side effects of treatment Condition is stable Treatment plan: Appreciate cardiology Oxygen therapy protocol Monitor labs and replace electrolytes RVP-negative PT OT Telemetry monitoring Lipid panel today Repeat troponin Imaging: Stress test today Echo-EF 40-45%. Moderately reduced left ventricular systolic function. Moderate global hypokinesis with increased wall thickness and grade 1 diastolic dysfunction with normal LAP. Normal systolic function. No AR or AAS. Mild to moderate MR. Mild TR. Left atrium mildly dilated no pericardial effusion Medications: Continue Rocephin and Zithromax Continue Nebs Continue Steroids Start aspirin 81 mg daily-concern for CAD Start Lipitor 40 mg daily-concern for CAD Medication Monitoring / High Risk Medications: none New onset type 2 diabetes Condition is unchanged Treatment plan: Appreciate agricultural extension educator POC glucose AC and at bedtime Hemoglobin A1c-12.7 Diabetic diet Imaging: no further imaging studies ordered today Medications: Continue metformin Start glyburide 5 mg daily Humalog sliding scale Hypoglycemia protocol Hypertension Condition is improving Treatment plan: Appreciate Cardiology Monitor labs Imaging: Stress test today-see above Echo-see above Medications: Continue losartan Weaned off Cardene Hydralazine as needed Continue Toprol-XL Nutrition status: at risk for malnutrition Pens And Pencils Dipper consult initiated I/O Daily weight Monitor Daily intake Nutritional Supplements as tolerated MALNUTRITION ASSESSMENT AND PLAN The following was documented by the Dietitian: Malnutrition Assessment Context of Malnutrition: Acute Illness (04/05/25735) Acute Illness - Energy Intake : No decrease in energy intake (04/05/25735) Acute Illness - Weight Loss : Mild weight loss (04/05/25735) Acute Illness - Body Fat Loss: No body fat loss (04/05/25735) Acute Illness - Muscle Mass Loss: No muscle mass loss (04/05/25735) Acute Illness - Fluid Accumulation : Mild (+ 2 RLE pitting edema +1 LLE pitting edema) (04/05/25735) Acute Illness - Fluid Accumulation Location: Extremities (+1 pitting +2 pitting) (04/05/25734) Acute Illness - Manager Industrial Strength: Not Performed (04/05/25735) Acute Illness - Malnutrition Score: 1 (04/05/25735) Malnutrition Status: At risk for malnutrition (04/05/25735) I agree with the dietitian's malnutrition assessment. Medical Nutrition Therapy: continue current nutrition therapy, oral diet, and oral supplements Hospital Prophylaxis: DVT: Lovenox Stress Ulcer: na Disposition: Shared decision making: All test results, treatment options and disposition options were discussed with the patient today Social determinants of health that may impact management: none Code status: Full Code Disposition: Discharge plan is pending [facility] Advanced Care Planning documentation: [x] I have confirmed that the patient's Advance Care Plan is present, Code Status is documented, orsurrogate decision maker is listed in the patient's medical record [If yes , STOP HERE] [] The patient's Advance Care Plan is NOT present because: [] I confirmed today that the patient does not wish or was not able to name a surrogate decision maker or provide and advance care plan. [] Hospice care is currently being provided or has been provided within the calendar year. [] I did NOT confirm today the presence of an Advance Care Plan or surrogate decision maker documented within the patient's medical record. [DOES NOT SATISFY [facility] PERFORMANCE] Afshan Santos APRN - [place] , [facility] 04/06/2025, 7:10 AM Cosigned by Joey Cornejo MD at 04/06/2025 7:28 PM EDT Associated attestation - Joey Cornejo MD - 04/06/2025 7:28 PM EDT Images from the original note were not included. [address], [address] Attestation Patient: Nic García Date of Admission: 04/04/2025 4:06 PM Hospital Day # 2 Date of Evaluation: 04/06/2025 I personally evaluated and examined the patient [id number] in conjunction with the PA/APPARATUS ENGINEERING TECHNOLOGIST and agree with the management and dispostition of the patient. Please see the PA/APPARATUS ENGINEERING TECHNOLOGIST's note for full details.My bain findings are: SUBJECTIVE: Patient seen for follow up of Acute respiratory failure with hypoxia (HCC). Patient seen and examined at the bed side , no new acute events overnight and, no new complains noted. He is feeling betterand on room air. He is using his walker to ambulate. He has been having ongoing urinary retention which is mostly unchanged. No blood noted in the min. Discussed POC, Stress test given recent ECHO findings and our concerns. Notes from nursing staff and Consults had been reviewed, and the overnight progress had been checked with the nursing staff as well. OBJECTIVE: Vitals: Temp: 98.3 ??F (36.8 ??C) BP: (!) 142/71 Respirations: 18 Pulse: 63 SpO2: 91 % Weight Wt Readings from Last 3 Encounters: 04/06/25 73.2 kg (161 lb 6 oz) 05/13/21 90.4 kg (199 lb 6.4 oz) Body mass index is 22.52 kg/m??. 24HR INTAKE/OUTPUT: Intake/Output Summary (Last 24 hours) at 04/06/20251926 Last data filed at 04/06/2025 1604 Gross per 24 hour Intake 1482 ml Output 1980 ml Net -498 ml Exam: GEN: Awake, alert and oriented x3. EYES: EOMI, pupils equal NECK: Supple. No lymphadenopathy. No carotid bruit CVS: regular rate and rhythm, systolic murmur PULM: diminished with inspiratory and expiratory wheezing bilaterally, no acute respiratory distress ABD: Bowels sounds normal. Abdomen is soft. No distention. no tenderness to palpation. EXT: 2+ edema bilaterally . No calf tenderness. NEURO: Moves all extremities. Motor and sensory are grossly intact SKIN: No rashes. No skin lesions. DATA: Complete Blood Count: Recent Labs 04/04/25 1625 04/05/25 0701 04/06/25 0555 WBC 10.2 10.6 13.8* RBC 4.83 4.77 4.60 HGB 14.6 14.6 13.8 HCT 42.3 41.7 40.2* MCV 87.6 87.4 87.4 RDW 13.4 13.4 13.6 PLT 233 227 239 Recent Labs 04/04/25 1625 04/05/25 0701 04/06/25 0555 NEUTROABS 7.54 9.53* 12.39* LYMPHOPCT 17* 8* 7* LYMPHSABS 1.76 0.89* 0.96* MONOPCT 7 1* 3 BASOPCT 0 0 0 IMMGRAN 0 0 0 CMP: Lab Results Component Value Date GLUCOSE 346 (H) 04/06/2025 BUN 21 04/06/2025 CREATININE 0.8 04/06/2025 NA 134 (L) 04/06/2025 K 3.9 04/06/2025 CALCIUM 8.5 (L) 04/06/2025 CL 96 (L) 04/06/2025 CO2 27 04/06/2025 BILITOT 0.3 04/06/2025 ALKPHOS 71 04/06/2025 ALT 35 04/06/2025 AST 24 04/06/2025 UA: No results found for: COLORU , CLARITYU , SPECGRAV , WBCUA , RBCUA , LEUKOCYTESUR , GLUCOSEU , BLOODU , KETUA , PROTEINU , HGBUR , CASTUA , BACTERIA , YEAST Lactic Acid: No results found for: LACTA High Sensitivity Troponin: Recent Labs 04/04/25 1625 04/04/25 1815 04/06/25 0555 TROPHS 42* 55* 37* Radiology/Imaging: CT CHEST PULMONARY EMBOLISM W CONTRAST Final Result 1. No evidence of pulmonary embolism or other acute pulmonary abnormality. 2. Calcifications throughout the pancreas typical of chronic pancreatitis. Vascular duplex lower extremity venous bilateral Final Result XR CHEST PORTABLE Final Result No acute abnormality. ASSESSMENT: Principal Problem: Acute respiratory failure with hypoxia (HCC) Active Problems: COPD with acute exacerbation (HCC) Uncontrolled hypertension New onset type 2 diabetes mellitus (HCC) Non-ischemic cardiomyopathy (HCC) Hypertensive left ventricular hypertrophy with heart failure (HCC) Coronary artery disease involving [place] coronary artery of [place] heart without angina pectoris Hypertensive urgency Abnormal stress test Hyperlipidemia LDL goal <70 Resolved Problems: * No resolved hospital problems. * PLAN: I agree with the plan as outlined in the APPARATUS ENGINEERING TECHNOLOGIST/PA's note Disposition: Discharge plan is pending Please note that this chart was generated using voice recognition [employer] dictation software. Although every effort was made to ensure the accuracy of this automated surgical aide, some errors in surgical aide may have occurred. Joey Cornejo MD 04/06/2025 7:27 PM * Amisha Gutierrez RN - 04/05/2025 6:36 PM EDT Cruise Director at bedside to complete evening assessment. Upon entry to room, pt in chair, respirations unlabored while on RA. Vitals obtained and assessment completed, see flow sheet for details. Pt denies needs from news writer at this time. Call light in reach. Care is ongoing. * Mary Hernandez LSW - 04/05/2025 4:40 PM EDT Met with Patient this a.m. to discuss discharge planning. Patient is a 69 year old, legally , white male, admitted with a diagnosis of Acute Respiratory Failure with Hypoxia. He is alert andoriented, polite and cooperative throughout this assessment. States that his plan will be to return home following this hospitalization. [place]. Has a cat Stephanie for companionship. Uses a nebulizer machine, inhalers, a walker for inside and a cane for outside and grab bars in his bathroom for assistance. Patient has no outside resources or services currently in place. Does his own shopping, cooking,housekeeping, etc. He is retired and an [employer] having served in [place] during the [place] era. Patient drives himself and provides for his own transportation needs. Minimal support network identified at this time. Patient has no PCP at present. Chooses [facility] from list of providers. He does have medical insurance and reports no difficulty with affording his medications at this time. Discharge plan is home when stable. He is a 'Full Code' status and has no Advanced Directives currently on file. Discussed importance of identifying medical decision makers and he responds I just don't know who that might be. BLOOD COORDINATOR to remain involved and assist with discharge planning as appropriate. AYSHA Downs 04/05/2025 * Davina Nazario RN, BSN - 04/05/2025 2:31 PM EDT Returned to room to see patient for glucometer instruction. Patient was given AgaMatrix Pro meter with 100 test strips and 100 lancets. Instructed on use and safe needle disposal. Patient was able toperform a glucose test without difficulty. Verbal cues provided. He was given target range for glucose. Reminded of the effects of steroids on glucose. A1C pending. Seems more irritable at this time than earlier this am. Informed patient educator will stop back tomorrow. Encourage him to review info in folder and will review monitor use again and answer questions. * Carlito Bond, PT - 04/05/2025 1:31 PM EDT Physical Therapy Facility/Department: [facility] Physical Therapy Initial Assessment Name: Nic García : 1955 Date of Service: 04/05/2025 Discharge Recommendations: Continue to assess pending progress, Home with assist PRN, Home independently Patient Diagnosis(es): The primary encounter diagnosis was COPD with acute exacerbation (HCC). Diagnoses of Hypoxia, Hypertensive urgency, Diabetes mellitus, new onset (HCC), and Shortness of breath were also pertinent to this visit. Past Medical History: has no past medical history on file. Past Surgical History: has no past surgical history on file. Assessment Assessment: Pt is a 69 y.o. male who presents with B LE weakness and decreased ambulatory capacity d/t SOB. Pt trialed ambulation with cane for 10' CGA very unsteady, switching to FWW with CGA and ambulating 60' with 2/10 SOB at end. Pt requires multiple attempts to complete STS and poor eccentric control with lowering. Pt would benefit from skilled therapy to address these defecits and improve function to prior level. Treatment Diagnosis: decreased ambulatory capacity Specific Instructions for Next Treatment: once per day on weekends and holidays Therapy Prognosis: Good Decision Making: Low Complexity Requires PT Follow-Up: Yes Activity Tolerance Activity Tolerance: Patient tolerated evaluation without incident Plan Physical Therapy Plan General Plan: 2 times a day 7 days a week Specific Instructions for Next Treatment: once per day on weekends and holidays Current Treatment Recommendations: Strengthening, ROM, Balance training, Functional mobility training, Transfer training, Endurance training, Gait training, Stair training, Neuromuscular re-education, Pain management, Home exercise program, Therapeutic activities Safety Devices Type of Devices: Call light within reach, Chair alarm in place Restrictions Restrictions/Precautions Restrictions/Precautions: Fall Risk, General Precautions Subjective General Patient assessed for rehabilitation services?: Yes Social/Functional History Social/Functional History Lives With: Alone Type of Home: Trailer Home Layout: One level Home Access: Stairs to enter with rails Entrance Stairs - Number of Steps: 4 Entrance Stairs - Rails: Both Bathroom Shower/Tub: Tub/Shower unit Bathroom Toilet: Standard Bathroom Equipment: Grab bars in shower Bathroom Accessibility: Accessible Home Equipment: Cane, Walker - Rolling Has the patient had two or more falls in the past year or any fall with injury in the past year?: No Receives Help From: Neighbor Prior Level of Assist for ADLs: Independent Prior Level of Assist for Homemaking: Independent Homemaking Responsibilities: Yes Prior Level of Assist for Transfers: Independent Active Service Architect: Yes Mode of Transportation: Truck Occupation: Retired Leisure & Hobbies: Play with cat,tv Additional Comments: Pt. uses inhaler at home for SOB. Vision/Hearing Vision Vision: Impaired Vision Exceptions: Wears glasses for reading Hearing Hearing: Within functional limits Cognition Orientation Overall Orientation Status: Within Functional Limits Objective Temp: 97.7 ??F (36.5 ??C) Pulse: 76 Heart Rate Source: Monitor;Apical Respirations: 24 SpO2: 90 % O2 Device: Nasal cannula BP: (!) 156/78 MAP (Calculated): 104 BP Location: Right upper arm BP Method: Automatic Patient Position: Sitting;Up in chair Observation/Palpation Posture: Fair AROM RLE (degrees) RLE AROM: WFL AROM LLE (degrees) LLE AROM : WFL Strength RLE Strength RLE: WFL Strength LLE Strength LLE: WFL Transfers Sit to Stand: Contact guard assistance Stand to Sit: Contact guard assistance Ambulation WB Status: fwb Ambulation Surface: Level tile Device: Rolling Walker Assistance: Contact guard assistance Quality of Gait: Pt trialed ambulation with cane for 10' CGA very unsteady, switching to FWW with CGA and ambulating 60' with 2/10 SOB at end. Balance Posture: Fair Sitting - Static: Good Sitting - Dynamic: Good Standing - Static: Good;- Standing - Dynamic: Fair;+ AM-PAC - Mobility AM-PAC Mobility without Stair Climbing Inpatient How much difficulty turning over in bed?: A Little How much difficulty sitting down on / standing up from a chair with arms?: A Little How much difficulty moving from lying on back to sitting on side of bed?: A Little How much help from another person moving to and from a bed to a chair?: A Little How much help from another person needed to walk in hospital room?: A Little AM-PAC Inpatient Mobility without Stair Climbing Raw Score : 15 AM-PAC Inpatient without Stair Climbing T-Scale Score : 43.03 Mobility Inpatient CMS 0-100% Score: 47.43 Mobility Inpatient without Stair CMS G-Code Modifier : CK Goals Short Term Goals Time Frame for Short Term Goals: 20 days Short Term Goal 1: Pt to tolerate 20 minutes of ther ex to facilitate return to PLOF. Short Term Goal 2: Pt to ambulate 100' with FWW and 3/10 or less SOB to increase ambulatory capacity for d/c Short Term Goal 3: Pt to complete transfers with standard cane and SBA to demonstrate increased independacne for safety with d/c. Patient Goals Patient Goals : Pt goal to return home Education Patient Education Education Given To: Patient Education Provided Comments: Pt edu: PT POC Therapy Time Individual Concurrent Group Co-treatment Time In 1315 Time Out 1325 Minutes 10 Timed Code Treatment Minutes: 10 Minutes CARLITO BOND PT,DPT Cosigned by Joey Cornejo MD at 04/05/2025 5:16 PM EDT * Arabella Juarez OT - 04/05/2025 10:40 AM EDT Occupational Therapy Facility/Department: [facility] Occupational Therapy Initial Assessment Name: Nic García : 1955 Date of Service: 04/05/2025 Discharge Recommendations: Home with assist PRN Patient Diagnosis(es): The primary encounter diagnosis was COPD with acute exacerbation (HCC). Diagnoses of Hypoxia, Hypertensive urgency, Diabetes mellitus, new onset (HCC), and Shortness of breath were also pertinent to this visit. Past Medical History: has no past medical history on file. Past Surgical History: has no past surgical history on file. Treatment Diagnosis: Acute respiratory failurewith hypoxia. Assessment Performance deficits / Impairments: Decreased functional mobility ;Decreased ADL status;Decreased strength;Decreased safe awareness;Decreased endurance Assessment: Due to above performance deficits, OT recommended. Treatment Diagnosis: Acute respiratory failurewith hypoxia. Prognosis: Good Decision Making: Low Complexity Assistance / Modification: SBA-Min A REQUIRES OT FOLLOW-UP: Yes Activity Tolerance Activity Tolerance: Patient Tolerated treatment well Plan Occupational Therapy Plan Times Per Week: Daily Restrictions Restrictions/Precautions Restrictions/Precautions: Fall Risk, General Precautions Subjective General Chart Reviewed: Yes Patient assessed for rehabilitation services?: Yes Response to previous treatment: Patient with no complaints from previous session Family / Caregiver Present: No Diagnosis: Acute respiratory failure with hypoxia Social/Functional History Social/Functional History Lives With: Alone Type of Home: Trailer Home Layout: One level Home Access: Stairs to enter with rails Entrance Stairs - Number of Steps: 4 Entrance Stairs - Rails: Both Bathroom Shower/Tub: Tub/Shower unit Bathroom Toilet: Standard Bathroom Equipment: Grab bars in shower Bathroom Accessibility: Accessible Home Equipment: Cane, Walker - Rolling Has the patient had two or more falls in the past year or any fall with injury in the past year?: No Receives Help From: Neighbor Prior Level of Assist for ADLs: Independent Prior Level of Assist for Homemaking: Independent Homemaking Responsibilities: Yes Prior Level of Assist for Transfers: Independent Active Service Architect: Yes Mode of Transportation: Truck Occupation: Retired Leisure & Hobbies: Play with cat,tv Objective Temp: 97.7 ??F (36.5 ??C) Pulse: 90 Heart Rate Source: Monitor;Apical Respirations: 24 SpO2: 94 % O2 Device: Nasal cannula BP: (!) 156/78 MAP (Calculated): 104 BP Location: Right upper arm BP Method: Automatic Patient Position: Sitting;Up in chair Safety Devices Type of Devices: Call light within reach;Chair alarm in place ADL Feeding: Independent Grooming: Independent UE Bathing: Setup LE Bathing: Supervision UE Dressing: Setup LE Dressing: Supervision Putting On/Taking Off Footwear: Independent Toileting: Supervision Functional Mobility: Supervision Product Used : Bath wipes Orientation Overall Orientation Status: Within Functional Limits Education Given To: Patient Education Provided: Role of Therapy;Plan of Care Education Method: Verbal Barriers to Learning: None Education Outcome: Verbalized understanding G-Code OutComes Score AM-PAC - ADL Tinneti Score Goals Short Term Goals Time Frame for Short Term Goals: 1 week Short Term Goal 1: Pt. will tolerate 15-30 min. functional activity to improve strength for ADL's. Short Term Goal 2: Pt. will engage in self-care to increase Ind. Short Term Goal 3: Pt. will state understanding to safety as relates to ADL's. 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 Patient Goals Patient goals : Get stronger Therapy Time Individual Concurrent Group Co-treatment Time In 1020 Time Out 1038 Minutes 18 Timed Code Treatment Minutes: 0 Minutes Arabella Juarez OT Cosigned by Joey Cornejo MD at 04/05/2025 12:53 PM EDT * Clotilde Espinosa - 04/05/2025 10:21 AM EDT Echocardiogram/doppler done at bedside. Instructed on policies and procedures. * Melly Sandy RN - 04/05/2025 8:26 AM EDT Vitals and assessment completed at this time. Patient up to chair, A&O x4. No c/o pain. Lungs diminished throughout with expiratory noted in bilateral upper lobes. Heart sounds normal. No needs at this time. Call light and bedside table in reach. Chair alarm on. Will continue to monitor * Angelique Whitfield - 04/05/2025 7:35 AM EDT Comprehensive Nutrition Assessment Type and Reason for Visit: Initial Nutrition Recommendations/Plan: Encourage pt to follow a carbohydrate controlled diet at home. Meet >75% of estimated needs. Continue current diet of regular; 4 carb choices. Low sodium (2gm). Malnutrition Assessment: Malnutrition Status: At risk for malnutrition (04/05/25 0736) Context: Acute Illness Findings of the 6 clinical characteristics of malnutrition: Energy Intake: No decrease in energy intake Weight Loss: Mild weight loss Body Fat Loss: No body fat loss Muscle Mass Loss: No muscle mass loss Fluid Accumulation: Mild (+ 2 RLE pitting edema +1 LLE pitting edema) Extremities (+1 pitting +2 pitting) Manager Industrial Strength: Not Performed Nutrition Assessment: Altered nutrition-related lab values r/t endocrine dysfunction aeb new on set diganosis of type 2 diabetes with a glucose of 563. A1c lab vaule is pending at this time. Pt was not forth coming with information avoiding question to ask when he can eat. Pt did report that he does not have a set schedule with meals eating whenever he feels like and whatever he want to eat. Breakfast consists of egg,sausage, potatoes and maybe toast with a black coffee. Lunch is typically a ham sandwich with chipsand dinner is a protein with a starchy vegetable such as corn. Went over with pt the diabetes MyPlate, carbohydrate counting, the importance of having routine meal times, and reading food labels. Handouts were tossed to the side, no questions or concerns at this time. Nutrition Related Findings: active bowel sounds and +2 RLE pitting edema and +1 LLE pitting edema Wound Type: None Current Nutrition Intake & Therapies: Average Meal Intake: 76-100% Average Supplements Intake: None Ordered ADULT DIET; Regular; 4 carb choices (60 gm/meal); Low Sodium (2 gm) Anthropometric Measures: Height: 180.3 cm (5' 10.98 ) [place] Body Weight (IBW): 172 lbs (78 kg) Admission Body Weight: 90.4 kg (199 lb 4.7 oz) (Same wt documented on 04/2021) Current Body Weight: 72.9 kg (160 lb 11.5 oz), 93.4 % IBW. Weight Source: Bed scale Current BMI (kg/m2): 22.4 Usual Body Weight: 77.1 kg (170 lb) (pt reported around 3 months ago) % Weight Change (Calculated): -5.5 Weight Adjustment For: No Adjustment BMI Categories: Normal Weight (BMI 22.0 to 24.9) age over 65 Hematology: Recent Labs 04/04/25 1625 04/05/25 0701 WBC 10.2 10.6 HGB 14.6 14.6 HCT 42.3 41.7 Chemistry: Recent Labs 04/04/25 1625 04/05/25 0028 04/05/25 0701 NA 133* -- 137 K 3.7 -- 3.7 CL 95* -- 98 CO2 24 -- 27 GLUCOSE 563* 282 203* BUN 10 -- 12 CREATININE 0.7 -- 0.6* CALCIUM 8.7 -- 8.7 Recent Labs 04/04/25 1815 04/05/25 0701 TSH 1.55 -- AST -- 25 ALT -- 37 ALKPHOS -- 81 BILITOT -- 0.4 Estimated Daily Nutrient Needs: Energy Requirements Based On: Kcal/kg Weight Used for Energy Requirements: Current Energy (kcal/day): 8838-9957 (25-28kcal/kg) Weight Used for Protein Requirements: [place] Protein (g/day): 94-109 (1.2-1.4g/kg) Method Used for Fluid Requirements: 1 ml/kcal Fluid (ml/day): 0051-4085 Nutrition Diagnosis: Altered nutrition-related lab values related to endocrine dysfunction as evidenced by lab values Nutrition Interventions: Food and/or Nutrient Delivery: Continue Current Diet Nutrition Education/Counseling: Education/Counseling completed Coordination of Nutrition Care: Continue to monitor while inpatient Plan of Care discussed with: pt Goals: Goals: PO intake 50% or greater, Meet at least 75% of estimated needs Type of Goal: New goal Previous Goal Met: New Goal Nutrition Monitoring and Evaluation: Behavioral-Environmental Outcomes: Beliefs and Attitudes Food/Nutrient Intake Outcomes: Food and Nutrient Intake Physical Signs/Symptoms Outcomes: Biochemical Data, GI Status, Weight Discharge Planning: Continue current diet Angelique Whitfield Contact: [phone] Cosigned by Celestino Bond, EDMAR, LD at 04/05/2025 8:22 AM EDT * Afshan Santos APRN - [facility] - 04/05/2025 7:01 AM EDT Progress Note SUBJECTIVE: Patient seen for f/u of Acute respiratory failure with hypoxia (HCC). He sitting up in chair no distress. Currently on 2L of oxygen. Converses appropriately ROS: Constitutional: negative for fevers, and negative for chills. Respiratory: positive for shortness of breath, negative for cough, and negative for wheezing Cardiovascular: negative for chest pain, and negative for palpitations Gastrointestinal: negative for abdominal pain, negative for nausea,negative for vomiting, negative for diarrhea, and negative for constipation All other systems were reviewed with the patient and are negative unless otherwise stated in HPI OBJECTIVE: Vitals: Vitals: 04/05/25 0248 BP: (!) 146/88 Pulse: 73 Resp: 20 Temp: 97 ??F (36.1 ??C) SpO2: 94% Weight - Scale: 72.9 kg (160 lb 11.2 oz) Height: 180.3 cm (5' 10.98 ) Weight Wt Readings from Last 3 Encounters: 04/05/25 72.9 kg (160 lb 11.2 oz) 05/13/21 90.4 kg (199 lb 6.4 oz) Body mass index is 22.42 kg/m??. 24HR INTAKE/OUTPUT: No intake or output data in the 24 hours ending 04/05/25 0834 Exam: GEN: Awake, alert and oriented x3. EYES: EOMI, pupils equal NECK: Supple. No lymphadenopathy. No carotid bruit CVS: regular rate and rhythm, no audible murmur PULM: diminished , no acute respiratory distress ABD: Bowels sounds normal. Abdomen is soft. No distention. no tenderness to palpation. EXT: 1+ edema in the RLE . No calf tenderness. NEURO: Moves all extremities. Motor and sensory are grossly intact SKIN: No rashes. No skin lesions. Diagnostic Data: Complete Blood Count: Recent Labs 04/04/25162404/05/25 0701 WBC 10.2 10.6 RBC 4.83 4.77 HGB 14.6 14.6 HCT 42.3 41.7 MCV 87.6 87.4 MCH 30.2 30.6 MCHC 34.5 35.0* RDW 13.4 13.4 PLT 233 227 MPV 9.4 9.3 Last 3 Blood Glucose: Recent Labs 04/04/25162404/05/25 0028 04/05/25 0701 GLUCOSE 563* 282 203* Comprehensive Metabolic Profile: Recent Labs 04/04/25162404/05/25 0028 04/05/25 0701 NA 133* -- 137 K 3.7 -- 3.7 CL 95* -- 98 CO2 24 -- 27 BUN 10 -- 12 CREATININE 0.7 -- 0.6* GLUCOSE 563* 282 203* CALCIUM 8.7 -- 8.7 BILITOT -- -- 0.4 ALKPHOS -- -- 81 AST -- -- 25 ALT -- -- 37 Urinalysis: No results found for: NITRU , COLORU , PHUR , LABCAST , WBCUA , RBCUA , MUCUS , TRICHOMONAS , YEAST , BACTERIA , CLARITYU , SPECGRAV , LEUKOCYTESUR , UROBILINOGEN , BILIRUBINUR , BLOODU , GLUCOSEU , KETUA , AMORPHOUS HgBA1c: No results found for: LABA1C Lactic Acid: No results found for: LACTA Troponin: No results for input(s): TROPONINI in the last 72 hours. CRP: Recent Labs 04/04/25 1815 04/05/25 0701 CRP <3.0 <3.0 Radiology/Imaging: CT CHEST PULMONARY EMBOLISM W CONTRAST Final Result 1. No evidence of pulmonary embolism or other acute pulmonary abnormality. 2. Calcifications throughout the pancreas typical of chronic pancreatitis. Vascular duplex lower extremity venous bilateral Final Result XR CHEST PORTABLE Final Result No acute abnormality. ASSESSMENT / PLAN: MEDICAL DECISION MAKING: Primary Problem(s): Acute respiratory failure with hypoxia (HCC) Differential diagnoses: COPD exacerbation, viral illness, pneumonia, PE Condition is 1 or more chronic illnesses with severe exacerbation, progression, or side effects of treatment Condition is stable Treatment plan: Oxygen therapy protocol Monitor labs and replace electrolytes RVP-pending PT OT Telemetry monitoring Imaging: Echo ordered Medications: Continue Rocephin and Zithromax Continue Nebs Continue Steroids Medication Monitoring / High Risk Medications: none New onset type 2 diabetes Condition is unchanged Treatment plan: POC glucose AC and at bedtime Hemoglobin A1c pending Diabetic diet Consult hospital educator Imaging: no further imaging studies ordered today Medications: Continue metformin-upon chart review it appears patient was on metformin several years ago. Humalog sliding scale Hypoglycemia protocol Hypertension Condition is improving Treatment plan: Appreciate Cardiology Monitor labs Imaging: Echo ordered Medications: Continue losartan Weaned off Cardene Hydralazine as needed Nutrition status: at risk for malnutrition Pens And Pencils Dipper consult initiated I/O Daily weight Monitor Daily intake Nutritional Supplements as tolerated MALNUTRITION ASSESSMENT AND PLAN The following was documented by the Dietitian: Malnutrition Assessment Context of Malnutrition: Acute Illness (04/05/25735) Acute Illness - Energy Intake : No decrease in energy intake (04/05/25735) Acute Illness - Weight Loss : Mild weight loss (04/05/25735) Acute Illness - Body Fat Loss: No body fat loss (04/05/25735) Acute Illness - Muscle Mass Loss: No muscle mass loss (04/05/25735) Acute Illness - Fluid Accumulation : Mild (+ 2 RLE pitting edema +1 LLE pitting edema) (04/05/25735) Acute Illness - Fluid Accumulation Location: Extremities (+1 pitting +2 pitting) (04/05/25734) Acute Illness - Manager Industrial Strength: Not Performed (04/05/25735) Acute Illness - Malnutrition Score: 1 (04/05/25735) Malnutrition Status: At risk for malnutrition (04/05/25735) I agree with the dietitian's malnutrition assessment. Medical Nutrition Therapy: continue current nutrition therapy, oral diet, and oral supplements Hospital Prophylaxis: DVT: Lovenox Stress Ulcer: na Disposition: Shared decision making: All test results, treatment options and disposition options were discussed with the patient today Social determinants of health that may impact management: none Code status: Full Code Disposition: Discharge plan is pending [facility] Advanced Care Planning documentation: [x] I have confirmed that the patient's Advance Care Plan is present, Code Status is documented, orsurrogate decision maker is listed in the patient's medical record [If yes , STOP HERE] [] The patient's Advance Care Plan is NOT present because: [] I confirmed today that the patient does not wish or was not able to name a surrogate decision maker or provide and advance care plan. [] Hospice care is currently being provided or has been provided within the calendar year. [] I did NOT confirm today the presence of an Advance Care Plan or surrogate decision maker documented within the patient's medical record. [DOES NOT SATISFY [facility] PERFORMANCE] Afshan Santos APRN - [place] , [facility] 04/05/2025, 8:34 AM Cosigned by Joey Cornejo MD at 04/05/2025 12:53 PM EDT Associated attestation - Joey Cornejo MD - 04/05/2025 12:53 PM EDT Images from the original note were not included. [address], [address] Attestation Patient: Nic García Date of Admission: 04/04/2025 4:06 PM Hospital Day # 1 Date of Evaluation: 04/05/2025 I personally evaluated and examined the patient [id number] in conjunction with the PA/APPARATUS ENGINEERING TECHNOLOGIST and agree with the management and dispostition of the patient. Please see the PA/APPARATUS ENGINEERING TECHNOLOGIST's note for full details.My bain findings are: SUBJECTIVE: Patient seen for follow up of Acute respiratory failure with hypoxia (HCC). Patient seen and examined at the bed side , no new acute events overnight and no new complains noted. VSS, afebrile. He feels that he can breathe better. No chest pain, pressure, discomfort noted. Notes from nursing staff and Consults had been reviewed, and the overnight progress had been checked with the nursing staff as well. OBJECTIVE: Vitals: Temp: 97.7 ??F (36.5 ??C) BP: (!) 156/78 Respirations: 24 Pulse: 76 SpO2: 90 % Weight Wt Readings from Last 3 Encounters: 04/05/25 72.9 kg (160 lb 11.5 oz) 05/13/21 90.4 kg (199 lb 6.4 oz) Body mass index is 22.43 kg/m??. 24HR INTAKE/OUTPUT: Intake/Output Summary (Last 24 hours) at 04/05/2025 1252 Last data filed at 04/05/2025 1229 Gross per 24 hour Intake 1080 ml Output -- Net 1080 ml Exam: GEN: Awake, alert and oriented x3. EYES: EOMI, pupils equal NECK: Supple. No lymphadenopathy. No carotid bruit CVS: regular rate and rhythm, systolic murmur PULM: diminished with inspiratory and expiratory wheezing bilaterally, no acute respiratory distress ABD: Bowels sounds normal. Abdomen is soft. No distention. no tenderness to palpation. EXT: 2+ edema bilaterally . No calf tenderness. NEURO: Moves all extremities. Motor and sensory are grossly intact SKIN: No rashes. No skin lesions. DATA: Complete Blood Count: Recent Labs 04/04/25 1625 04/05/25 0701 WBC 10.2 10.6 RBC 4.83 4.77 HGB 14.6 14.6 HCT 42.3 41.7 MCV 87.6 87.4 RDW 13.4 13.4 PLT 233 227 Recent Labs 04/04/25 1625 04/05/25 0701 NEUTROABS 7.54 9.53* LYMPHOPCT 17* 8* LYMPHSABS 1.76 0.89* MONOPCT 7 1* BASOPCT 0 0 IMMGRAN 0 0 CMP: Lab Results Component Value Date GLUCOSE 203 (H) 04/05/2025 BUN 12 04/05/2025 CREATININE 0.6 (L) 04/05/2025 NA 137 04/05/2025 K 3.7 04/05/2025 CALCIUM 8.7 04/05/2025 CL 98 04/05/2025 CO2 27 04/05/2025 BILITOT 0.4 04/05/2025 ALKPHOS 81 04/05/2025 ALT 37 04/05/2025 AST 25 04/05/2025 UA: No results found for: COLORU , CLARITYU , SPECGRAV , WBCUA , RBCUA , LEUKOCYTESUR , GLUCOSEU , BLOODU , KETUA , PROTEINU , HGBUR , CASTUA , BACTERIA , YEAST Lactic Acid: No results found for: LACTA High Sensitivity Troponin: Recent Labs 04/04/25 1625 04/04/25 1815 TROPHS 42* 55* Radiology/Imaging: CT CHEST PULMONARY EMBOLISM W CONTRAST Final Result 1. No evidence of pulmonary embolism or other acute pulmonary abnormality. 2. Calcifications throughout the pancreas typical of chronic pancreatitis. Vascular duplex lower extremity venous bilateral Final Result XR CHEST PORTABLE Final Result No acute abnormality. ASSESSMENT: Principal Problem: Acute respiratory failure with hypoxia (HCC) Active Problems: COPD exacerbation (HCC) Uncontrolled hypertension New onset type 2 diabetes mellitus (HCC) Resolved Problems: * No resolved hospital problems. * PLAN: I agree with the plan as outlined in the APPARATUS ENGINEERING TECHNOLOGIST/PA's note Disposition: Discharge plan is pending Please note that this chart was generated using voice recognition [employer] dictation software. Although every effort was made to ensure the accuracy of this automated surgical aide, some errors in surgical aide may have occurred. Joey Cornejo MD 04/05/2025 12:52 PM * Mele Knowles RN - 04/05/2025 2:48 AM EDT [facility]- ambulating x1 assist from ER stretcher to bed, tolerating well. Patient arrives to room alert and oriented x4- calm and cooperative with assessment. Currently denies pain at time of assessment. Admission navigator complete with assistance from patient. Lung fieldsclear; diminished bilaterally- dyspnea noted on exertion, patient recovering well. Oxygen titrated to 2L nasal cannula with spo2 saturation of 94%- per patient he is room air at baseline. Patient free of incontinence at this time- min in place prior to admission to floor- chronic per patient. No additional requests from news writer- call light placed within reach, bed in lowest position and alarm engaged to promote patient safety. Cruise Director encourage s use of call light for assistance. Plan of care on going. documented in this encounter Plan of Treatment Scheduled Orders Name Type Priority Associated Diagnoses Orde r Schedule Basic Metabolic Panel Lab Routine COPD with acute exacerbation (HCC) Idiopathic cardiomyopathy (HCC) New onset type 2 diabetes mellitus (HCC) Coronary artery disease involving [place] coronary artery of [place] heart without angina pectoris Expected: 04/13/2025, Expires: 04/06/2026 CBC with Auto Differential Lab Routine COPD with acute exacerbation (HCC) Idiopathic cardiomyopathy (HCC) New onset type 2 diabetes mellitus (HCC) Coronary artery disease involving [place] coronary artery of [place] heart without angina pectoris Expected: 04/13/2025, Expires: 04/06/2026 documented as of this encounter Procedures Procedure Name Priority Date/Time Associated Diagnosis Comments GLUCOSE, WHOLE BLOOD Routine 04/06/2025 5:16 PM EDT LEFT HEART CATH / CORONARY ANGIOGRAPHY Routine 04/06/2025 4:04 PM EDT Abnormal stress test Idiopathic cardiomyopathy (HCC) NM LEXISCAN STRESS TEST W/ MYOCARDIAL PERFUSION Routine 04/06/2025 12:24 PM EDT Shortness of breath GLUCOSE, WHOLE BLOOD Routine 04/06/2025 11:17 AM EDT GLUCOSE, WHOLE BLOOD Routine 04/06/2025 6:48 AM EDT EKG RHYTHM STRIP Routine 04/06/2025 6:00 AM EDT PROCALCITONIN Routine 04/06/2025 5:55 AM EDT COMPREHENSIVE METABOLIC PANEL W/ REFLEX TO MG FOR LOW K Routine 04/06/2025 5:55 AM EDT CBC WITH AUTO DIFFERENTIAL Routine 04/06/2025 5:55 AM EDT TROPONIN Add-On 04/06/2025 5:55 AM EDT C-REACTIVE PROTEIN Routine 04/06/2025 5: 55 AM EDT BRAIN NATRIURETIC PEPTIDE Add-On 04/06/2025 5:55 AM EDT LIPID PANEL Add-On 04/06/2025 5:55 AM EDT GLUCOSE, WHOLE BLOOD Routine 04/05/2025 8:11 PM EDT GLUCOSE, WHOLE BLOOD Routine 04/05/2025 3:56 PM EDT EKG RHYTHM STRIP Routine 04/05/2025 2:59 PM EDT GLUCOSE, WHOLE BLOOD Routine 04/05/2025 10:57 AM EDT ECHO (TTE) COMPLETE STAT 04/05/2025 1 0:00 AM EDT Shortness of breath PROCALCITONIN STAT 04/05/2025 7:01 AM EDT COMPREHENSIVE METABOLIC PANEL W/ REFLEX TO MG FOR LOW K STAT 04/05/2025 7:01 AM EDT CBC WITH AUTO DIFFERENTIAL STAT 04/05/2025 7:01 AM EDT C-REACTIVE PROTEIN STAT 04/05/2025 7: 01 AM EDT BRAIN NATRIURETIC PEPTIDE STAT 04/05/2025 7:01 AM EDT GLUCOSE, WHOLE BLOOD Routine 04/05/2025 6:58 AM EDT EKG RHYTHM STRIP Routine 04/05/2025 6:13 AM EDT POCT GLUCOSE Routine 04/05/2025 12:28 AM EDT GLUCOSE, WHOLE BLOOD Routine 04/05/2025 12:17 AM EDT RESPIRATORY PANEL, MOLECULAR, WITH COVID-19 STAT 04/05/2025 12:08 AM EDT GLUCOSE, WHOLE BLOOD Routine 04/04/2025 10:49 PM EDT BLOOD GAS, VENOUS Routine 04/04/2025 8:5 0 PM EDT GLUCOSE, WHOLE BLOOD Routine 04/04/2025 7:[address] CHEST PULMONARY EMBOLISM W CONTRAST STAT 04/04/2025 6:55 PM EDT TSH REFLEX TO FT4 STAT 04/04/2025 6:1 5 PM EDT BETA-HYDROXYBUTYRATE STAT 04/04/2025 6:15 PM EDT TROPONIN STAT 04/04/2025 6:15 PM EDT C-REACTIVE PROTEIN STAT 04/04/2025 6: 15 PM EDT HEMOGLOBIN A1C Add-On 04/04/2025 6:15 PM EDT VAS DUP LOWER EXTREMITY VENOUS BILATERAL STAT 04/04/2025 5:52 PM EDT BLOOD GAS, VENOUS Routine 04/04/2025 4:5 5 PM EDT EKG 12-LEAD Routine 04/04/2025 4:49 PM EDT XR CHEST PORTABLE STAT 04/04/2025 4:4 6 PM EDT CBC WITH AUTO DIFFERENTIAL STAT 04/04/2025 4:25 PM EDT TROPONIN STAT 04/04/2025 4:25 PM EDT D-DIMER, QUANTITATIVE STAT 04/04/2025 4:25 PM EDT BRAIN NATRIURETIC PEPTIDE STAT 04/04/2025 4:25 PM EDT BASIC METABOLIC PANEL STAT 04/04/2025 4:25 PM EDT EKG 12-LEAD STAT 04/04/2025 4:24 PM EDT documented in this encounter Results * (ABNORMAL) Glucose, Whole Blood (04/06/2025 5:16 PM EDT) [facility] POC Glucose 316(H) 74 - 100 mg/dL 04/06/2025 5:16 PM EDT [facility] 04/06/2025 5:16 PM EDT 04/06/2025 5:24 PM EDT Joey Cornejo MD CHEMISTRY ORDERABLES Final Resul t [facility] [address] [phone] * LEFT HEART CATH / CORONARY ANGIOGRAPHY (04/06/2025 4:04 PM EDT) [facility] Body Surface Area 1.91 m2 BS CV CPACS HEMO Anatomical Region Laterality Modality X-Ray Angiograph y Narrative 04/06/2025 4:58 PM EDT - Coronary Angiography Brief Post Operative Note: Mild coronary artery disease without any significant focal stenosis. Normal left ventricular end diastolic pressure (LVEDP). involving a 50% stenosis in a very large 1st septal inspector brake lining of the LAD. Normal left ventricular end diastolic pressure. Proceed with guideline directed maximal medical management for what appears to be a non-ischemic cardiomyopathy. Coronary Findings Diagnostic Dominance: Right Left Main: The vessel exhibits minimal luminal irregularities. First Septal Branch: 1st Sept lesion, 50% stenosed. Right Coronary Artery: Prox RCA lesion, 20% stenosed. Intervention No interventions have been documented. Bleeding Risk Calculator Bleeding Risk points = 0. us Rui Marquez MD CV CARDIAC CATH ORDERABLES Final Result * NM LEXISCAN STRESS TEST W/ MYOCARDIAL PERFUSION (04/06/2025 12:24 PM EDT) Stress Target HR 150 bpm [facility] CV RPACS STRESS Exercise Duration Time 1 min [facility] CV RPACS STRESS Exercise Duration Seconds 16 sec [facility] CV RPACS STRESS Baseline Systolic BP 180 mmHg [facility] CV RPACS STRESS Baseline Diastolic BP 80 mmHg [facility] CV RPACS STRESS Stress Systolic BP 180 mmHg [facility] CV RPACS STRESS Stress Diastolic BP 80 mmHg [facility] CV RPACS STRESS Baseline HR 65 BPM [facility] CV RPACS STRESS Stress Peak HR 91 BPM [facility] CV RPACS STRESS Stress Estimated Workload 1.0 METS [facility] CV [facility]ACS STRESS Body Surface Area 1.91 m2 [facility] CV [facility]ACS STRESS Stress Rate Pressure Product 16,380 BPM*mmHg [facility] CV [facility]ACS STRESS Stress Percent HR Achieved 61 % [facility] CV RPACS STRESS Stress ST Depression 1.0 mm [facility] CV RPACS STRESS Anatomical Region Laterality Modality Nuclear Medicine 04/06/2025 11:5 1 AM EDT Narrative 04/06/2025 2:12 PM EDT Perfusion Defect: There is a left ventricular stress perfusion defect present in the inferior, inferolateral and inferoapical segment(s) that is predominantly fixed. This defect was visualized during the stress and rest phases of imaging. The defect appears to be infarction and mango-infarct ischemia. Sum difference score of 6. Perfusion Conclusion: There is no evidence of transient ischemic dilation (TID). ECG: Resting ECG demonstrates normal sinus rhythm. Stress Test: A pharmacological stress test was performed using regadenoson (Lexiscan). The patient reported no symptoms during the stress test. Image quality is good. Stress ECG: There were no arrhythmias during stress. 1.[address] depression in the inferior and inferolateral leads (II, III, aVF, V5 and V6) was noted. There were no noted arrhythmias during recovery. There were no ST changes during recovery. Overall, these cardiac imaging results are most consistent with a intermediate risk for significant reversible coronary artery disease and cardiac events. Additional testing including cardiac catheterization may be indicated. The sensitivity for detecting ischemia on this test may have been reduced due the patient being on a beta rudy The results of this test were discussed with Afshan Holliday on 04/06/2025 at 2:10 pm Resting ECG ECG is normal. The ECG shows sinus rhythm. Stress Findings A pharmacological stress test was performed using regadenoson (Lexiscan). The patient reported no symptoms during the stress test. The patient reached the end of the protocol. Hemodynamics are adequate for diagnosis. Stress ECG There were no arrhythmias during stress. 1.[address] depression in the inferior and inferolateral leads (II, III, aVF, V5 and V6) was noted. There were no noted arrhythmias during recovery. There were no ST changes during recovery. Nuclear Study Quality Nuclear Cardiac SPECT rest then gated stress with tomographic imaging/tomography utilized for the myocardial perfusion procedure. Lexiscan was used as the stressing method and agent. (Lexiscan given via a 10 - 20 sec injection). One day myocardial perfusion study (04/06/2025). This Single Photon Emission Computer Tomography (SPECT) study utilized tomographic imaging/tomography for the tomographic myocardial perfusion imaging performed during this study. Overall image quality is good. Diaphragmatic attenuation artifact noted. Perfusion Comments Prone images were obtained. Prone imaging confirms a true perfusion defect instead of soft tissue attenuation. Perfusion Defect There is a left ventricular stress perfusion defect present in the inferior, inferolateral and inferoapical segment(s) that is predominantly fixed. This defect was visualized during the stress and rest phases of imaging. The defect appears to be infarction and mango-infarct ischemia. Sum difference score of 6. Perfusion Defect Conclusion There is no evidence of transient ischemic dilation (TID). us Afshan Santos E COMMERCE SOLUTION ARCHITECT - COUNTERSINKER BALANCE SCREW HOLE CV STRESS ORD ERABLES Final Result * (ABNORMAL) Glucose, Whole Blood (04/06/2025 11:17 AM EDT) POC Glucose 352(H) 74 - 100 mg/dL 04/06/2025 11:17 AM EDT [facility] 04/06/2025 11:1 7 AM EDT 04/06/2025 11:24 AM EDT us Joey Cornejo MD CHEMISTRY ORDERABLES Final Resul t Performing Organization Address City/[facility]/ZIP Co de Phone Number [facility] [address] [phone] * (ABNORMAL) Glucose, Whole Blood (04/06/2025 6:48 AM EDT) POC Glucose 308(H) 74 - 100 mg/dL 04/06/2025 6:48 AM EDT [facility] 04/06/2025 6:48 AM EDT 04/06/2025 7:37 AM EDT us Joey Cornejo MD CHEMISTRY ORDERABLES Final Resul t Performing Organization Address [facility]/ZIP Co de Phone Number [facility] [address] [place] [address] * EKG Rhythm Strip (04/06/2025 6:00 AM EDT) 04/06/2025 6:00 AM EDT Narrative [facility] - 04/06/2025 6:08 AM EDT us Unknown Provider Result ECG ORDERABLES Final Re sult Performing Organization Address [facility] Co de Phone Number [facility] [address] [place] [address] * Lipid Panel (04/06/2025 5:55 AM EDT) Cholesterol, Total 121 0 - 199 mg/dL 04/06/2025 5:55 AM EDT [facility] Comment: Cholesterol Guidelines: <200 Desirable 200-240 Borderline >240 Undesirable HDL 68 >40 mg/dL 04/06/2025 5:55 AM EDT [facility] Comment: HDL Guidelines: <40 Undesirable 40-59 Borderline >59 Desirable LDL Cholesterol 42 0 - 100 mg/dL 04/06/2025 5:55 AM EDT [facility] Comment: LDL Guidelines: <100 Desirable 100-129 Near to/above Desirable 130-159 Borderline >159 Undesirable Direct (measured) LDL and calculated LDL are not interchangeable tests. Chol/HDL Ratio 1.8 <5.0 04/06/2025 5:55 AM EDT [facility] Triglycerides 53 <150 mg/dL 04/06/2025 5:55 AM EDT [facility] Comment: Triglyceride Guidelines: <150 Desirable 150-199 Borderline 200-499 High >499 Very high Based on AHA Guidelines for fasting triglyceride, August 2012. VLDL 11 1 - 30 mg/dL 04/06/2025 5:55 AM EDT [facility] Blood BLOOD SPECIMEN / Unknown 04/06/2025 5:55 AM EDT 04/06/2025 12:02 PM EDT Afshan Santos E COMMERCE SOLUTION ARCHITECT - COUNTERSINKER BALANCE SCREW HOLE CHEMISTRY ORD ERABLES Final Result Performing Organization Address City/[facility]/ZIP Co de Phone Number [facility] [address] [place] [address], [facility] [phone] [place] [address], [facility] [phone] * (ABNORMAL) Troponin (04/06/2025 5:55 AM EDT) Troponin, High Sensitivity 37(H) 0 - 22 ng/L 04/06/2025 5:55 AM EDT [facility] Comment:High Sensitivity Tro ponin values cannot be compared with other Troponin methodologies. Blood BLOOD SPECIMEN / Unknown 04/06/2025 5:55 AM EDT 04/06/2025 12:02 PM EDT Afshan Santos E COMMERCE SOLUTION ARCHITECT - [facility] CHEMISTRY ORD ERABLES Final Result Performing Organization Address [facility]/State/ZIP Co de Phone Number [facility] [address] [place] [address], [facility] [phone] * (ABNORMAL) Brain Natriuretic Peptide (04/06/2025 5:55 AM EDT) NT Pro-BNP 780(H) 0 - 125 pg/mL 04/06/2025 5:55 AM EDT [facility] Blood BLOOD SPECIMEN / Unknown 04/06/2025 5:55 AM EDT 04/06/2025 7:15 AM EDT Afshan Santos E COMMERCE SOLUTION ARCHITECT - COUNTERSINKER BALANCE SCREW HOLE CHEMISTRY ORD ERABLES Final Result [facility] [address] [phone] * (ABNORMAL) CBC with Auto Differential (04/06/2025 5:55 AM EDT) WBC 13.8(H) 3.5 - 11.3 k/uL 04/06/2025 5:55 AM EDT [facility] RBC 4.60 4.21 - 5.77 m/uL 04/06/2025 5:55 AM EDT [facility] Hemoglobin 13.8 13.0 - 17.0 g/dL 04/06/2025 5:55 AM EDT [facility] Hematocrit 40.2(L) 40.7 - 50.3 % 04/06/2025 5:55 AM EDT [facility] MCV 87.4 82.6 - 102.9 fL 04/06/2025 5:55 AM EDT [facility] MCH 30.0 25.2 - 33.5 pg 04/06/2025 5:55 [facility] MCHC 34.3 28.4 - 34.8 g/dL 04/06/2025 5:55 AM EDT [facility] RDW 13.6 11.8 - 14.4 % 04/06/2025 5:55 AM [facility] Platelets 239 138 - 453 k/uL 04/06/2025 5:55 AM [facility] MPV 9.4 8.1 - 13.5 fL 04/06/2025 5:55 AM [facility] NRBC Automated 0.0 0.0 per 100 WBC 04/06/2025 5:55 AM EDT [facility] Neutrophils % 90(H) 36 - 65 % 04/06/2025 5:55 AM EDT [facility] Lymphocytes % 7(L) 24 - 43 % 04/06/2025 5:55 AM [facility] Monocytes % 3 3 - 12 % 04/06/2025 5:55 AM [facility] Eosinophils % 0(L) 1 - 4 % 04/06/2025 5:55 AM [facility] Basophils % 0 0 - 2 % 04/06/2025 5:55 AM [facility] Immature Granulocytes % 0 0 % 04/06/2025 5:55 AM [facility] Neutrophils Absolute 12.39(H) 1.50 - 8.10 k/uL 04/06/2025 5:55 AM [facility] Lymphocytes Absolute 0.96(L) 1.10 - 3.70 k/uL 04/06/2025 5:55 AM [facility] Monocytes Absolute 0.36 0.10 - 1.20 k/uL 04/06/2025 5:55 AM [facility] Eosinophils Absolute 0.05 0.00 - 0.44 k/uL 04/06/2025 5:55 AM [facility] Basophils Absolute <0.03 0.00 - 0.20 k/uL 04/06/2025 5:55 AM [facility] Immature Granulocytes Absolute 0.05 0.00 - 0.30 k/uL 04/06/2025 5:55 AM [facility] Blood BLOOD SPECIMEN / Unknown 04/06/2025 5:55 AM EDT 04/06/2025 6:11 AM EDT us Joey Cornejo MD HEMATOLOGY ORDERABLES Final Resu lt [facility] [address] [place] [id number] [phone] * (ABNORMAL) Comprehensive Metabolic Panel w/ Reflex to MG (04/06/2025 5:55 AM EDT) Sodium 134(L) 136 - 145 mmol/L 04/06/2025 5:55 AM [facility] Potassium 3.9 3.7 - 5.3 mmol/L 04/06/2025 5:55 AM [facility] Chloride 96(L) 98 - 107 mmol/L 04/06/2025 5:55 AM [facility] CO2 27 20 - 31 mmol/L 04/06/2025 5:55 AM [facility] Anion Gap 11 9 - 16 mmol/L 04/06/2025 5:55 AM [facility] Glucose 346(H) 74 - 99 mg/dL 04/06/2025 5:55 AM [facility] BUN 21 8 - 23 mg/dL 04/06/2025 5:55 AM [facility] Creatinine 0.8 0.70 - 1.20 mg/dL 04/06/2025 5:55 AM [facility] Est, Glom Filt Rate >90 >60 mL/min/1.7 3m2 04/06/2025 5:55 AM [facility] Comment: These results are not intended for use in patients <18 years of age. eGFR results are calculated without a race factor using the 2020 CKD-EPI equation. Careful clinical correlation is recommended, particularly when comparing to results calculated using previous equations. The CKD-EPI equation is less accurate in patients with extremes of muscle mass, extra-renal metabolism of creatine, excessive creatine ingestion, or following therapy that affects renal tubular secretion. BUN/Creatinine Ratio 26(H) 9 - 20 04/06/2025 5:55 AM [facility] Calcium 8.5(L) 8.6 - 10.4 mg/dL 04/06/2025 5:55 AM [facility] Total Protein 5.4(L) 6.6 - 8.7 g/dL 04/06/2025 5:55 AM [facility] Albumin 3.7 3.5 - 5.2 g/dL 04/06/2025 5:55 AM [facility] Albumin/Globulin Ratio 2.1 1.0 - 2.5 04/06/2025 5:55 AM EDT [facility] Total Bilirubin 0.3 0.00 - 1.20 mg/dL 04/06/2025 5:55 AM EDT [facility] Alkaline Phosphatase 71 40 - 129 U/L 04/06/2025 5:55 AM EDT [facility] ALT 35 10 - 50 U/L 04/06/2025 5:55 AM EDT [facility] AST 24 10 - 50 U/L 04/06/2025 5:55 AM EDT [facility] Blood BLOOD SPECIMEN / Unknown 04/06/2025 5:55 AM EDT 04/06/2025 6:11 AM EDT Joey Cornejo MD CHEMISTRY ORDERABLES Final Resul t Performing Organization Address City/[facility]/ZIP Co de Phone Number [facility] [address] [place] [address] * C-Reactive Protein (04/06/2025 5:55 AM EDT) CRP <3.0 0.0 - 5.0 mg/L 04/06/2025 5:55 AM EDT [facility] Blood BLOOD SPECIMEN / Unknown 04/06/2025 5:55 AM EDT 04/06/2025 6:11 AM EDT Joey Cornejo MD CHEMISTRY ORDERABLES Final Resul t [facility] [address] [place] [address] * Procalcitonin (04/06/2025 5:55 AM EDT) Procalcitonin 0.04 0.00 - 0.09 ng/mL 04/06/2025 5:55 AM EDT [email or web address]: Suspected Sepsis: <0.50 ng/mL Low likelihood of sepsis. 0.50-2.00 ng/mL Increased likelihood of sepsis. Antibiotics encouraged. >2.00 ng/mL High risk of sepsis/shock. Antibiotics strongly encouraged. Suspected Lower Resp Tract Infections: <0.24 ng/mL Low likelihood of bacterial infection. >0.24 ng/mL Increased likelihood of bacterial infection. Antibiotics encouraged. With successful antibiotic therapy, PCT levels should decrease rapidly. (Half- life of 24 to 36 hours.) Procalcitonin values from samples collected within the first 6 hours of systemic infection may still be low. Retesting may be indicated. Values from day 1 and day 4 can be entered into the Change in Procalcitonin Calculator (www.codhda-phm-yvysxjynsv.com) to determine the patient's Mortality Risk Prognosis In healthy neonates, plasma Procalcitonin (PCT) concentrations increase gradually after , reaching peak values at about 24 hours of age then decrease to normal values below 0.5 ng/mL by 48-72 hours of age. Blood BLOOD SPECIMEN / Unknown 04/06/2025 5:55 AM EDT 04/06/2025 6:11 AM EDT us Joey Cornejo MD CHEMISTRY ORDERABLES Final Resul t Performing Organization Address City/[facility]/ZIP Co de Phone Number [facility] [address] [place] [address] [place] [address], [facility] [phone] * (ABNORMAL) Glucose, Whole Blood (04/05/2025 8:11 PM EDT) [facility] POC Glucose 253(H) 74 - 100 mg/dL 04/05/2025 8:11 PM EDT [facility] 04/05/2025 8:11 PM EDT 04/05/2025 8:18 PM EDT us Joey Cornejo MD CHEMISTRY ORDERABLES Final Resul t Performing Organization Address City/[facility]/ZIP Co de Phone Number [facility] [address] [place] [address] * (ABNORMAL) Glucose, Whole Blood (04/05/2025 3:56 PM EDT) POC Glucose 316(H) 74 - 100 mg/dL 04/05/2025 3:56 PM EDT [facility] 04/05/2025 3:56 PM EDT 04/05/2025 4:03 PM EDT Joey Cornejo MD CHEMISTRY ORDERABLES Final Resul t Performing Organization Address [facility]/ZIP Co de Phone Number [facility] [address] [place] [address] * EKG Rhythm Strip (04/05/2025 2:59 PM EDT) 04/05/2025 2:59 PM EDT Narrative [facility] - 04/05/2025 3:38 PM EDT us Unknown Provider Result ECG ORDERABLES Final Re sult Performing Organization Address [facility]/ZIP Co de Phone Number [facility] [address] [place] [address] * (ABNORMAL) Glucose, Whole Blood (04/05/2025 10:57 AM EDT) POC Glucose 289(H) 74 - 100 mg/dL 04/05/2025 10:57 AM EDT [facility] 04/05/2025 10:5 7 AM EDT 04/05/2025 11:03 AM EDT us Joey Cornejo MD CHEMISTRY ORDERABLES Final Resul t Performing Organization Address [facility] Co de Phone Number [facility] [address] [place] [address] * (ABNORMAL) ECHO (TTE) COMPLETE (04/05/2025 10:00 AM EDT) LV EDV A2C 138 mL [facility] CPACS LV EDV A4C 149 mL [facility] LV ESV A2C 78 mL [facility] CV [facility]ACS LV ESV A4C 86 mL [facility] CV CPACS IVSd 1.3(A) 0.6 - 1.0 cm [facility] CV CPACS LVIDd 5.0 4.2 - 5.9 cm BS CV CPACS LVIDs 4.1 cm [facility] LVOT Diameter 2.0 cm [facility] LVOT Mean Gradient 2 mmHg [facility] LVOT VTI 17.9 cm [facility]ACS LVOT Peak Velocity 0.9 m/s BS CV [facility]ACS LVOT Peak Gradient 3 mmHg [facility] LVPWd 1.1(A) 0.6 - 1.0 cm [facility] LV E' Lateral Velocity 7.29 cm/s [facility] LV Ejection Fraction A2C 43 % [facility] LV Ejection Fraction A4C 42 % [facility]ACS EF BP 43(A) 55 - 100 % [facility] LVOT Area 3.1 cm2 [facility] LVOT SV 56.2 ml [facility]ACS LA Minor Low Moor 5.2 cm [facility] CV CPACS LA Major [place] 5.3 cm [facility] LA Area 2C 21.8 cm2 [facility]ACS LA Area 4C 21.8 cm2 [facility] LA Volume MOD A2C 76(A) 18 - 58 mL [facility] CV CPACS LA Volume MOD A4C 66(A) 18 - 58 mL [facility] CV CPACS LA Volume BP 71(A) 18 - 58 mL [facility] AV Cusp Mmode 1.9 cm BS [facility] AV Mean Gradient 6 mmHg [facility] AV VTI 33.2 cm BS [facility] AV Mean Velocity 1.1 m/s BS [facility] AV Peak Velocity 1.7 m/s [facility] CV [facility]ACS AV Peak Gradient 11 mmHg [facility] AV Area by VTI 1.7 cm2 [facility] AV Area by Peak Velocity 1.6 cm2 [facility] CV CPACS Aortic Root 1.9 cm [facility] CV CPACS Sinotubular Junction 2.1 cm [facility] CV CPACS Aortic Sinus Valsalva 3.4 cm [facility] MV E Wave Deceleration Time 238.0 ms BS CV [facility] MV A Velocity 0.91 m/s [facility] MV E Velocity 0.57 m/s [facility] PV Max Velocity 1.0 m/s [facility] PV Peak Gradient 4 mmHg [facility] TAPSE 3.2 >=1.7 cm [facility] TR Max Velocity 1.81 m/s BS CV CPACS TR Peak Gradient 13 mmHg BS CV CPACS Body Surface Area 1.91 m2 BS CV [facility] Fractional Shortening 2D 18 28 - 44 % [facility] LV ESV Index A4C 45 mL/m2 BS CV [facility]ACS LV EDV Index A4C 78 mL/m2 BS CV [facility]ACS LV ESV Index A2C 41 mL/m2 BS CV [facility]ACS LV EDV Index A2C 72 mL/m2 BS CV CPACS LVIDd Index 2.60 cm/m2 BS CV CPACS LVIDs Index 2.14 cm/m2 [facility] LV RWT Ratio 0.44 [facility] LV Mass 2D 233.7(A) 88 - 224 g BS [facility] LV Mass 2D Index 121.7(A) 49 - 115 g/m2 [facility] MV E/A 0.63 BS [facility] E/E' Lateral 7.82 BS CV CPACS LA Volume Index BP 37(A) 16 - 34 ml/m2 BS CV CPACS LVOT Stroke Volume Index 29.3 mL/m2 BS CV CPACS LA Volume Index MOD A2C 40(A) 16 - 34 ml/m2 BS CV CPACS LA Volume Index MOD A4C 34 16 - 34 ml/m2 BS CV CPACS Ao Root Index 0.99 cm/m2 BS CV CPACS Aortic Sinus Valsalva Index 1.77 cm/m2 BS CV CPACS AV Velocity Ratio 0.53 BS CV CPACS LVOT:AV VTI Index 0.54 BS CV CPACS JANIS/BSA VTI 0.9 cm2/m2 BS CV CPACS JANIS/BSA Peak Velocity 0.8 cm2/m2 BS CV CPACS Est. RA Pressure 3 mmHg BS CV CPACS RVSP 16 mmHg BS CV CPACS EF Physician 45 % BS CV CPACS Anatomical Region Laterality Modality Echocardiography Narrative 04/05/2025 11:40 AM EDT Left Ventricle: Moderately reduced left ventricular systolic function with a visually estimated EF of 40 - 45%. Left ventricle size is normal. Mildly increased wall thickness. Moderate global hypokinesis present. Grade I diastolic dysfunction with normal LAP. Right Ventricle: Right ventricle size is normal. Normal systolic function. Aortic Valve: Thickened cusps. Calcified cusps. Sclerosis of the aortic valve cusps. No regurgitation. No stenosis. Mitral Valve: Mild to moderate regurgitation. Tricuspid Valve: Mild regurgitation. RVSP is 16 mmHg. Left Atrium: Left atrium is mildly dilated. Left atrial volume index is mildly increased (35-41 mL/m2) mL/m2. Aorta: Normal sized aortic root. Aortic Sinus Valsalva is 3.4 cm. Pericardium: The pericardium is normal. No pericardial effusion. Left Ventricle Moderately reduced left ventricular systolic function with a visually estimated EF of 40 - 45%. Left ventricle size is normal. Mildly increased wall thickness. Moderate global hypokinesis present. Grade I diastolic dysfunction with normal LAP. Right Ventricle Right ventricle size is normal. Normal systolic function. Left Atrium Left atrium is mildly dilated. Left atrial volume index is mildly increased (35- 41 mL/m2) mL/m2. Right Atrium Right atrium size is normal. IVC/SVC IVC diameter is normal or and decreases greater than 50% during inspiration; therefore the estimated right atrial pressure is normal (~3 mmHg). IVC size is normal. Mitral Valve There is annular calcification noted. Mild to moderate regurgitation. No stenosis noted. Tricuspid Valve Valve structure is normal. Mild regurgitation. RVSP is 16 mmHg. No stenosis noted. Aortic Valve Thickened cusps. Calcified cusps. Sclerosis of the aortic valve cusps. No regurgitation. No stenosis. Pulmonic Valve The pulmonic valve visualization is suboptimal but appears to be functioning normally. Physiologically normal regurgitation. No stenosis noted. Ascending Aorta Normal sized aortic root. Aortic Sinus Valsalva is 3.4 cm. Pericardium The pericardium is normal. No pericardial effusion. Study Details Image quality: adequate. No contrast was given. us Joey Cornejo MD CV ECHO ORDERABLES Final Result * (ABNORMAL) CBC with Auto Differential (04/05/2025 7:01 AM EDT) WBC 10.6 3.5 - 11.3 k/uL 04/05/2025 7:01 AM [facility] RBC 4.77 4.21 - 5.77 m/uL 04/05/2025 7:01 AM [facility] Hemoglobin 14.6 13.0 - 17.0 g/dL 04/05/2025 7:01 AM [facility] Hematocrit 41.7 40.7 - 50.3 % 04/05/2025 7:01 AM [facility] MCV 87.4 82.6 - 102.9 fL 04/05/2025 7:01 AM [facility] MCH 30.6 25.2 - 33.5 pg 04/05/2025 7:01 AM [facility] MCHC 35.0(H) 28.4 - 34.8 g/dL 04/05/2025 7:01 AM [facility] RDW 13.4 11.8 - 14.4 % 04/05/2025 7:01 AM [facility] Platelets 227 138 - 453 k/uL 04/05/2025 7:01 AM [facility] MPV 9.3 8.1 - 13.5 fL 04/05/2025 7:01 AM [facility] NRBC Automated 0.0 0.0 per 100 WBC 04/05/2025 7:01 AM [facility] Neutrophils % 91(H) 36 - 65 % 04/05/2025 7:01 AM [facility] Lymphocytes % 8(L) 24 - 43 % 04/05/2025 7:01 AM [facility] Monocytes % 1(L) 3 - 12 % 04/05/2025 7:01 AM [facility] Eosinophils % 0(L) 1 - 4 % 04/05/2025 7:01 AM [facility] Basophils % 0 0 - 2 % 04/05/2025 7:01 AM [facility] Immature Granulocytes % 0 0 % 04/05/2025 7:01 AM EDT [facility] Neutrophils Absolute 9.53(H) 1.50 - 8.10 k/uL 04/05/2025 7:01 AM EDT [facility] Lymphocytes Absolute 0.89(L) 1.10 - 3.70 k/uL 04/05/2025 7:01 AM EDT [facility] Monocytes Absolute 0.10 0.10 - 1.20 k/uL 04/05/2025 7:01 AM EDT [facility] Eosinophils Absolute <0.03 0.00 - 0.44 k/uL 04/05/2025 7:01 AM EDT [facility] Basophils Absolute <0.03 0.00 - 0.20 k/uL 04/05/2025 7:01 AM EDT [facility] Immature Granulocytes Absolute 0.03 0.00 - 0.30 k/uL 04/05/2025 7:01 AM EDT [facility] Blood BLOOD SPECIMEN / Unknown 04/05/2025 7:01 AM EDT 04/05/2025 7:04 AM EDT us Joey Cornejo MD HEMATOLOGY ORDERABLES Final Resu lt Performing Organization Address City/[facility]/ZIP Co de Phone Number [facility] [address] [place] [address] * (ABNORMAL) Brain Natriuretic Peptide (04/05/2025 7:01 AM EDT) NT Pro-BNP 1,715(H) 0 - 125 pg/mL 04/05/2025 7:01 AM EDT [facility] Blood BLOOD SPECIMEN / Unknown 04/05/2025 7:01 AM EDT 04/05/2025 7:04 AM EDT us Joey Cornejo MD CHEMISTRY ORDERABLES Final Resul t [facility] [address] [phone] * (ABNORMAL) Comprehensive Metabolic Panel w/ Reflex to MG (04/05/2025 7:01 AM EDT) Sodium 137 136 - 145 mmol/L 04/05/2025 7:01 AM [facility] Potassium 3.7 3.7 - 5.3 mmol/L 04/05/2025 7:01 AM [facility] Chloride 98 98 - 107 mmol/L 04/05/2025 7:01 AM [facility] CO2 27 20 - 31 mmol/L 04/05/2025 7:01 AM [facility] Anion Gap 12 9 - 16 mmol/L 04/05/2025 7:01 AM [facility] Glucose 203(H) 74 - 99 mg/dL 04/05/2025 7:01 AM [facility] BUN 12 8 - 23 mg/dL 04/05/2025 7:01 AM [facility] Creatinine 0.6(L) 0.70 - 1.20 mg/dL 04/05/2025 7:01 AM [facility] Est, Glom Filt Rate >90 >60 mL/min/1.7 3m2 04/05/2025 7:01 AM [facility] Comment: These results are not intended for use in patients <18 years of age. eGFR results are calculated without a race factor using the 2020 CKD-EPI equation. Careful clinical correlation is recommended, particularly when comparing to results calculated using previous equations. The CKD-EPI equation is less accurate in patients with extremes of muscle mass, extra-renal metabolism of creatine, excessive creatine ingestion, or following therapy that affects renal tubular secretion. BUN/Creatinine Ratio 20 9 - 20 04/05/2025 7:01 AM [facility] Calcium 8.7 8.6 - 10.4 mg/dL 04/05/2025 7:01 AM [facility] Total Protein 5.9(L) 6.6 - 8.7 g/dL 04/05/2025 7:01 AM EDT [facility] Albumin 4.0 3.5 - 5.2 g/dL 04/05/2025 7:01 AM EDT [facility] Albumin/Globulin Ratio 2.1 1.0 - 2.5 04/05/2025 7:01 AM EDT [facility] Total Bilirubin 0.4 0.00 - 1.20 mg/dL 04/05/2025 7:01 AM EDT [facility] Alkaline Phosphatase 81 40 - 129 U/L 04/05/2025 7:01 AM EDT [facility] ALT 37 10 - 50 U/L 04/05/2025 7:01 AM EDT [facility] AST 25 10 - 50 U/L 04/05/2025 7:01 AM EDT [facility] Blood BLOOD SPECIMEN / Unknown 04/05/2025 7:01 AM EDT 04/05/2025 7:04 AM EDT Joey Cornejo MD CHEMISTRY ORDERABLES Final Resul t Performing Organization Address City/[facility]/ZIP Co de Phone Number [facility] [address] [place] [address] * C-Reactive Protein (04/05/2025 7:01 AM EDT) CRP <3.0 0.0 - 5.0 mg/L 04/05/2025 7:01 AM EDT [facility] Blood BLOOD SPECIMEN / Unknown 04/05/2025 7:01 AM EDT 04/05/2025 7:04 AM EDT Joey Cornejo MD CHEMISTRY ORDERABLES Final Resul t Performing Organization Address City/[facility]/ZIP Co de Phone Number [facility] [address] [place] [address] * Procalcitonin (04/05/2025 7:01 AM EDT) Procalcitonin 0.06 0.00 - 0.09 ng/mL 04/05/2025 7:01 AM EDT [facility] Comment: Suspected Sepsis: <0.50 ng/mL Low likelihood of sepsis. 0.50-2.00 ng/mL Increased likelihood of sepsis. Antibiotics encouraged. >2.00 ng/mL High risk of sepsis/shock. Antibiotics strongly encouraged. Suspected Lower Resp Tract Infections: <0.24 ng/mL Low likelihood of bacterial infection. >0.24 ng/mL Increased likelihood of bacterial infection. Antibiotics encouraged. With successful antibiotic therapy, PCT levels should decrease rapidly. (Half- life of 24 to 36 hours.) Procalcitonin values from samples collected within the first 6 hours of systemic infection may still be low. Retesting may be indicated. Values from day 1 and day 4 can be entered into the Change in Procalcitonin Calculator ([email or web address]-iet-bxnmevfuiq.[employer]) to determine the patient's Mortality Risk Prognosis In healthy neonates, plasma Procalcitonin (PCT) concentrations increase gradually after , reaching peak values at about 24 hours of age then decrease to normal values below 0.5 ng/mL by 48-72 hours of age. Blood BLOOD SPECIMEN / Unknown 04/05/2025 7:01 AM EDT 04/05/2025 7:04 AM EDT Joey Cornejo MD CHEMISTRY ORDERABLES Final Resul t [facility] [address] [place] [address], [facility] [phone] [phone] * (ABNORMAL) Glucose, Whole Blood (04/05/2025 6:58 AM EDT) [facility] POC Glucose 194(H) 74 - 100 mg/dL 04/05/2025 6:58 AM EDT [facility] 04/05/2025 6:58 AM EDT 04/05/2025 7:04 AM EDT Joey Cornejo MD CHEMISTRY ORDERABLES Final Resul t Performing Organization Address City/[facility]/ZIP Co de Phone Number [facility] [address] [place] [address] * EKG Rhythm Strip (04/05/2025 6:13 AM EDT) 04/05/2025 6:13 AM EDT Narrative [facility] - 04/05/2025 6:36 AM EDT us Unknown Provider Result ECG ORDERABLES Final Re sult Performing Organization Address [facility] Co de Phone Number [facility] [address] [place] [address] * POCT Glucose (04/05/2025 12:28 AM EDT) Glucose 282 mg/dL QC OK? yes BLOOD SPECIMEN / Unknown 04/05/2025 12:28 AM EDT Joey Cornejo MD POINT OF CARE TEST ORDERABLES Fi nal Result * (ABNORMAL) Glucose, Whole Blood (04/05/2025 12:17 AM EDT) POC Glucose 282(H) 74 - 100 mg/dL 04/05/2025 12:17 AM EDT [facility] 04/05/2025 12:1 7 AM EDT 04/05/2025 12:24 AM EDT Joey Cornejo MD CHEMISTRY ORDERABLES Final Resul t Performing Organization Address [facility]/ZIP Co de Phone Number [facility] [address] [place] [address] * Respiratory Panel, Molecular, with COVID-19 (Restricted: peds pts or suitable admitted adults) (04/05/2025 12:08 AM EDT) Specimen Description .NASOPHARYN GEAL SWAB 04/05/2025 12:08 AM [employer] Adenovirus PCR Not Detected Not Detected 04/05/2025 12:08 AM [employer] Coronavirus 229E PCR Not Detected Not Detected 04/05/2025 12:08 AM [employer] Coronavirus HKU1 PCR Not Detected Not Detected 04/05/2025 12:08 AM [employer] Coronavirus NL63 PCR Not Detected Not Detected 04/05/2025 12:08 AM [facility] [employer] Coronavirus OC43 PCR Not Detected Not Detected 04/05/2025 12:08 AM [employer] SARS-CoV-2, PCR Not Detected Not Detected 04/05/2025 12:08 AM [employer] Human Metapneumovirus PCR Not Detected Not Detected 04/05/2025 12:08 AM [employer] Rhino/Enterovirus PCR Not Detected Not Detected 04/05/2025 12:08 AM [employer] Influenza A by PCR Not Detected Not Detected 04/05/2025 12:08 AM [employer] Influenza B by PCR Not Detected Not Detected 04/05/2025 12:08 AM [employer] Parainfluenza 1 PCR Not Detected Not Detected 04/05/2025 12:08 AM [employer] Parainfluenza 2 PCR Not Detected Not Detected 04/05/2025 12:08 AM [employer] Parainfluenza 3 PCR Not Detected Not Detected 04/05/2025 12:08 AM [employer] Parainfluenza 4 PCR Not Detected Not Detected 04/05/2025 12:08 AM [employer] Resp Syncytial Virus PCR Not Detected Not Detected 04/05/2025 12:08 AM [employer] Bordetella parapertussis by PCR Not Detected Not Detected 04/05/2025 12:08 AM [employer] B Pertussis by PCR Not Detected Not Detected 04/05/2025 12:08 AM [employer] Chlamydia pneumoniae By PCR Not Detected Not Detected 04/05/2025 12:08 AM [employer] Mycoplasma pneumo by PCR Not Detected Not Detected 04/05/2025 12:08 AM [employer] Comment:Performed by [employer] exed nucleic acid assay. NASOPHARYNGEAL SWAB / Unknown 04/05/2025 12:08 AM EDT 04/05/2025 12:16 AM EDT Haley Kinney CNP MICROBIOLOGY - GENERAL ORDERABLES Final Result Performing Organization Address City/[facility]/ZIP Co de Phone Number [facility] [address] [place] [address], [facility] [phone] [place] [address], [facility] [phone] * (ABNORMAL) Glucose, Whole Blood (04/04/2025 10:49 PM EDT) POC Glucose 373(H) 74 - 100 mg/dL 04/04/2025 10:49 PM EDT [facility] 04/04/2025 10:4 9 PM EDT 04/04/2025 11:19 PM EDT Joey Cornejo MD CHEMISTRY ORDERABLES Final Resul t Performing Organization Address City/[facility]/ZIP Co de Phone Number [facility] [address] [phone] * (ABNORMAL) Blood Gas, Venous (04/04/2025 8:50 PM EDT) pH, Pankaj 7.451(H) 7.32 - 7.42 04/04/2025 8:50 PM EDT [facility] pCO2, Pankaj 42.7 39 - 55 mm Hg 04/04/2025 8:50 PM EDT [facility] PO2, Pankaj 57.5(H) 30.0 - 50.0 mm Hg 04/04/2025 8:50 PM EDT [facility] HCO3, Venous 29.1 24.0 - 30.0 mmol/L 04/04/2025 8:50 PM EDT [facility] Positive Base Excess, Pankaj 4.6(H) 0.0 - 2.0 mmol/L 04/04/2025 8:50 PM EDT [facility] O2 Sat, Pankaj 91.0(H) 60.0 - 85.0 % 04/04/2025 8:50 PM EDT [facility] Pt Temp 37.0 04/04/2025 8:50 PM EDT [facility] pH, Pankaj, Temp Adj 7.451(H) 7.320 - 7.420 04/04/2025 8:50 PM EDT [facility] pCO2, Pankaj, Temp Adj 42.7 39.0 - 55.0 mmHg 04/04/2025 8:50 PM EDT [facility] pO2, Pankaj, Temp Adj 57.5(H) 30.0 - 50.0 mmHg 04/04/2025 8:50 PM EDT [facility] O2 Device/Flow/% Cannula 04/04/2025 8:50 PM EDT [facility] Junaid Test NOT APPLICABLE 04/04/2025 8:50 PM EDT [facility] FIO2 28 04/04/2025 8:50 PM EDT [facility] 04/04/2025 8:50 PM EDT 04/04/2025 8:52 PM EDT us Joey Cornejo MD CHEMISTRY ORDERABLES Final Resul t [facility] [address] [place] [address] * (ABNORMAL) Glucose, Whole Blood (04/04/2025 7:48 PM EDT) Pathologist [facility] POC Glucose 386(H) 74 - 100 mg/dL 04/04/2025 7:48 PM EDT [facility] 04/04/2025 7:48 PM EDT 04/04/2025 7:55 PM EDT us Libia Amos DO CHEMISTRY ORDERABLES Final Re sult Performing Organization Address City/[facility]/ZIP Co de Phone Number [facility] [address] [place] [address] * CT CHEST PULMONARY EMBOLISM W CONTRAST (04/04/2025 6:55 PM EDT) Anatomical Region Laterality Modality Chest Computed Tomogra phy 04/04/2025 7:38 PM EDT Impressions 04/04/2025 7:41 PM EDT 1. No evidence of pulmonary embolism or other acute pulmonary abnormality. 2. Calcifications throughout the pancreas typical of chronic pancreatitis. Narrative 04/04/2025 7:41 PM EDT EXAM: CTA of the Chest with contrast for PE 04/04/2025 06:55:00 PM TECHNIQUE: CTA of the chest was performed after the administration of intravenous contrast. Multiplanar reformatted images are provided for review. MIP images are provided for review. Automated exposure control, iterative reconstruction, and/or weight based adjustment of the mA/kV was utilized to reduce the radiation dose to as low as reasonably achievable. COMPARISON: None available. CLINICAL HISTORY: Hypoxia. FINDINGS: PULMONARY ARTERIES: Pulmonary arteries are adequately opacified for evaluation. No evidence of pulmonary embolism. Main pulmonary artery is normal in caliber. MEDIASTINUM: No evidence of mediastinal lymphadenopathy. The heart and pericardium demonstrate no acute abnormality. There is no acute abnormality of the thoracic aorta. LYMPH NODES: No evidence of mediastinal, hilar or axillary lymphadenopathy. LUNGS AND PLEURA: The lungs are without acute process. No focal consolidation or pulmonary edema. No evidence of pleural effusion or pneumothorax. UPPER ABDOMEN: Calcifications throughout the pancreas with some pancreatic ductal dilatation. SOFT TISSUES AND BONES: No acute bone or soft tissue abnormality. Procedure Note Iker Santos MD - 04/04/2025 EXAM: CTA of the Chest with contrast for PE 04/04/2025 06:55:00 PM TECHNIQUE: CTA of the chest was performed after the administration of intravenouscontrast. Multiplanar reformatted images are provided for review. MIPimages are provided for review. Automated exposure control, iterativereconstruction, and/or weight based adjustment of the mA/kV was utilized to reduce the radiation dose to aslow as reasonably achievable. COMPARISON: None available. CLINICAL HISTORY: Hypoxia. FINDINGS: PULMONARY ARTERIES: Pulmonary arteries are adequately opacified for evaluation. No evidence ofpulmonary embolism. Main pulmonary artery is normal in caliber. MEDIASTINUM: No evidence of mediastinal lymphadenopathy. The heart and pericardiumdemonstrate no acute abnormality. There is no acute abnormality of thethoracic aorta. LYMPH NODES: No evidence of mediastinal, hilar or axillary lymphadenopathy. LUNGS AND PLEURA: The lungs are without acute process. No focal consolidation or pulmonaryedema. No evidence of pleural effusion or pneumothorax. UPPER ABDOMEN: Calcifications throughout the pancreas with some pancreatic ductaldilatation. SOFT TISSUES AND BONES: No acute bone or soft tissue abnormality. IMPRESSION: 1. No evidence of pulmonary embolism or other acute pulmonaryabnormality. 2. Calcifications throughout the pancreas typical of chronicpancreatitis. Kym Espino DO IMG CT ORDERABLES Final Res ult * TSH reflex to FT4 (04/04/2025 6:15 PM EDT) Pathologist [facility] TSH 1.55 0.27 - 4.20 uIU/mL 04/04/2025 6:15 PM EDT [facility] Blood BLOOD SPECIMEN / Unknown 04/04/2025 6:15 PM EDT 04/04/2025 8:26 PM EDT Joey Cornejo MD CHEMISTRY ORDERABLES Final Resul t Performing Organization Address City/[facility]/ZIP Co de Phone Number [facility] [address] [place] [address] * C-Reactive Protein (04/04/2025 6:15 PM EDT) CRP <3.0 0.0 - 5.0 mg/L 04/04/2025 6:15 PM EDT [facility] Blood BLOOD SPECIMEN / Unknown 04/04/2025 6:15 PM EDT 04/04/2025 8:26 PM EDT Joey Cornejo MD CHEMISTRY ORDERABLES Final Resul t Performing Organization Address City/[facility]/ZIP Co de Phone Number [facility] [address] [place] [address] * (ABNORMAL) Hemoglobin A1C (04/04/2025 6:15 PM EDT) Pathologist [facility] Hemoglobin A1C 12.7(H) 4.0 - 6.0 % 04/04/2025 6:15 PM EDT [facility] [employer] Estimated Avg Glucose 318 mg/dL 04/04/2025 6:15 PM EDT [facility] [employer] Comment: The ADA and AACC recommend providing the estimated average glucose result to permit better patient understanding of their HBA1c result. Blood BLOOD SPECIMEN / Unknown 04/04/2025 6:15 PM EDT 04/04/2025 6:57 PM EDT Kym Espino DO CHEMISTRY ORDERABLES Final Result [facility] [address] [place] [address], [facility] [phone] [place] [address], [facility] [phone] * (ABNORMAL) Troponin (04/04/2025 6:15 PM EDT) [facility] Troponin, High Sensitivity 55(HH) 0 - 22 ng/L 04/04/2025 6:15 PM EDT [facility] Comment:High Sensitivity Tro ponin values cannot be compared with other Troponin methodologies. Blood BLOOD SPECIMEN / Unknown 04/04/2025 6:15 PM EDT 04/04/2025 6:18 PM EDT Kym Espino DO CHEMISTRY ORDERABLES Final Result [facility] [address] [place] [address], [facility] [phone] * Beta-Hydroxybutyrate (04/04/2025 6:15 PM EDT) [facility] Beta-Hydroxybut yrate 0.18 0.02 - 0.27 mmol/L 04/04/2025 6:15 PM EDT [facility] BLOOD SPECIMEN / Unknown 04/04/2025 6:15 PM EDT 04/04/2025 6:18 PM EDT us Kym Espino DO CHEMISTRY ORDERABLES Final Result [facility] [address] [place] [address], [facility] [phone] * Vascular duplex lower extremity venous bilateral (04/04/2025 5:52 PM EDT) Anatomical Region Laterality Modality Vascular Ultraso und Narrative 04/05/2025 6:28 AM EDT No evidence of deep vein or superficial vein thrombosis in the right lower extremity. Vessels demonstrate normal compressibility, color filling, and phasic and spontaneous flow. No evidence of deep vein or superficial vein thrombosis in the left lower extremity. Vessels demonstrate normal compressibility, color filling, and phasic and spontaneous flow. Right Lower Venous No evidence of deep vein or superficial vein thrombosis. The common femoral, saphenofemoral junction, profunda femoral, femoral, popliteal, greater saphenous, and small saphenous veins were imaged in the transverse view and showed normal compressibility. The common femoral, popliteal, and middle femoral veins were imaged in the longitudinal view and showed normal color filling and normal phasic and spontaneous flow. Left Lower Venous No evidence of deep vein or superficial vein thrombosis. The common femoral, saphenofemoral junction, profunda femoral, femoral, popliteal, greater saphenous, and small saphenous veins were imaged in the transverse view and showed normal compressibility. The common femoral, popliteal, and middle femoral veins were imaged in the longitudinal view and showed normal color filling and normal phasic and spontaneous flow. Internet Sales Manager Details A garcia scale, color Doppler imaging and spectral Doppler analysis ultrasound was performed. During the study longitudinal and transverse views were obtained. Continuous wave doppler and pulsed wave doppler was performed. Overall the study quality was adequate. Study was technically difficult due to: patient positioning. us Kym Espino DO CV VASCULAR ORDERABLES Maureen l Result * (ABNORMAL) Blood Gas, Venous (04/04/2025 4:55 PM EDT) pH, Pankaj 7.395 7.32 - 7.42 04/04/2025 4:55 PM EDT [facility] pCO2, Pankaj 41.8 39 - 55 mm Hg 04/04/2025 4:55 PM [facility] PO2, Pankaj 99.9(H) 30.0 - 50.0 mm Hg 04/04/2025 4:55 PM [facility] HCO3, Venous 25.0 24.0 - 30.0 mmol/L 04/04/2025 4:55 PM [facility] Positive Base Excess, Pankaj 0.1 0.0 - 2.0 mmol/L 04/04/2025 4:55 PM [facility] O2 Sat, Pankaj 97.5(H) 60.0 - 85.0 % 04/04/2025 4:55 PM [facility] Pt Temp 37.0 04/04/2025 4:55 PM [facility] pH, Pankaj, Temp Adj 7.395 7.320 - 7.420 04/04/2025 4:55 PM [facility] pCO2, Pankaj, Temp Adj 41.8 39.0 - 55.0 mmHg 04/04/2025 4:55 PM [facility] pO2, Pankaj, Temp Adj 99.9(H) 30.0 - 50.0 mmHg 04/04/2025 4:55 PM [facility] O2 Device/Flow/% ROOM AIR 04/04/2025 4:55 PM [facility] Junaid Test NOT APPLICABLE 04/04/2025 4:55 PM [facility] FIO2 21 04/04/2025 4:55 PM [facility] 04/04/2025 4:55 PM EDT 04/04/2025 5:00 PM EDT us Kym Espino DO CHEMISTRY ORDERABLES Final Result [facility] [address] [phone] * EKG 12 Lead (04/04/2025 4:49 PM EDT) Ventricular Rate 91 BPM [facility] Atrial Rate 91 BPM [facility] P-R Interval 202 ms [facility] QRS Duration 112 ms [facility] Q-T Interval 384 ms [facility] QTc Calculation (Bazett) 472 ms [facility] P [place] 76 degrees [facility] R [place] -2 degrees [facility] T [place] 14 degrees [facility] 04/04/2025 4:49 PM EDT Narrative [facility] - 04/04/2025 11:59 PM EDT Normal sinus rhythm Septal infarct (cited on or before 19-Mar-2025) Abnormal ECG When compared with ECG of 04-Apr-2025 16:45, (unconfirmed) No significant change was found Confirmed by Rui Marquez ([id number]) on 04/04/2025 11:59:15 PM Procedure Note Rui Marquez MD - 04/04/2025 Normal sinus rhythm Septal infarct (cited on or before 19-Mar-2025) Abnormal ECG When compared with ECG of 04-Apr-2025 16:45, (unconfirmed) No significant change was found Confirmed by Rui Marquez ([id number]) on 04/04/2025 11:59:15 PM us Kym Espino DO ECG ORDERABLES Final Resul t [facility] * XR CHEST PORTABLE (04/04/2025 4:46 PM EDT) Anatomical Region Laterality Modality Chest Computed Radiogr aphy 04/04/2025 5:13 PM EDT Impressions 04/04/2025 5:14 PM EDT No acute abnormality. Narrative 04/04/2025 5:14 PM EDT EXAMINATION: ONE XRAY VIEW OF THE CHEST 04/04/2025 4:46 pm COMPARISON: 03/19/2025 HISTORY: Acute shortness of breath. FINDINGS: Patient is slightly rotated. Normal cardiomediastinal silhouette. No acute airspace disease, pleural effusion, or pneumothorax. Chronic healed bilateral rib fractures. Procedure Note Mikie Barker MD - 04/04/2025 EXAMINATION: ONE XRAY VIEW OF THE CHEST 04/04/2025 4:46 pm COMPARISON: 03/19/2025 HISTORY: Acute shortness of breath. FINDINGS: Patient is slightly rotated. Normal cardiomediastinal silhouette. Noacute airspace disease, pleural effusion, or pneumothorax. Chronic healed bilateral rib fractures. IMPRESSION: No acute abnormality. Kym Espino DO [facility] ORDE JESENIA Final Result * D-Dimer, Quantitative (04/04/2025 4:25 PM EDT) [facility] Signature D-Dimer, Quant 0.37 0.00 - 0.59 ug/mL FEU 04/04/2025 4:25 PM EDT [facility] Comment: When combined with a low clinical probability, a D dimer value of <0.50 ug/mL FEU is considered negative for DVT and PE (negative predictive value of 98%, sensitivity of 97%). If this test is not being used to help rule out DVT and PE, then the following reference range should be utilized: 0.00 - 0.59 ug/mL FEU. The D-Dimer assay is intended for use as an aid in the diagnosis of venous thromboembolism (DVT and PE) and the results should be interpreted in conjunction with the patient's medical history, clinical presentation, and other findings. Elevated levels of D-dimer activity can be seen in any state of coagulation activation and is not recommended in patients with therapeutic dose anticoagulant therapy for >24 hours, fibrinolytic therapy within the previous 7 days, trauma or surgery within the previous 4 weeks, disseminated malignancies, aortic aneurysm, sepsis, severe infections, pneumonia, severe skin infections, liver cirrhosis, advanced age, coronary disease, diabetes, and . A very low percentage of patients with DVT may yield D-dimer results below the cutoff of 0.5 ug/mL FEU. This is known to be more prevalent in patients with distal DVT. Blood BLOOD SPECIMEN / Unknown 04/04/2025 4:25 PM EDT 04/04/2025 4:34 PM EDT Kym Espino DO HEMATOLOGY ORDERABLES Final Result Performing Organization Address [facility]/ZIP Co de Phone Number [facility] [address] [phone] * (ABNORMAL) Troponin (04/04/2025 4:25 PM EDT) Troponin, High Sensitivity 42(H) 0 - 22 ng/L 04/04/2025 4:25 PM EDT [facility] Comment:High Sensitivity Tro ponin values cannot be compared with other Troponin methodologies. Blood BLOOD SPECIMEN / Unknown 04/04/2025 4:25 PM EDT 04/04/2025 4:33 PM EDT Kym Espino DO CHEMISTRY ORDERABLES Final Result Performing Organization Address [facility]/ZIP Co de Phone Number [facility] [address] [phone] * (ABNORMAL) CBC with Auto Differential (04/04/2025 4:25 PM EDT) [facility] WBC 10.2 3.5 - 11.3 k/uL 04/04/2025 4:25 PM EDT [facility] RBC 4.83 4.21 - 5.77 m/uL 04/04/2025 4:25 PM EDT [facility] Hemoglobin 14.6 13.0 - 17.0 g/dL 04/04/2025 4:25 PM EDT [facility] Hematocrit 42.3 40.7 - 50.3 % 04/04/2025 4:25 PM EDT [facility] MCV 87.6 82.6 - 102.9 fL 04/04/2025 4:25 PM EDT [facility] MCH 30.2 25.2 - 33.5 pg 04/04/2025 4:25 PM [facility] MCHC 34.5 28.4 - 34.8 g/dL 04/04/2025 4:25 PM [facility] RDW 13.4 11.8 - 14.4 % 04/04/2025 4:25 PM [facility] Platelets 233 138 - 453 k/uL 04/04/2025 4:25 PM [facility] MPV 9.4 8.1 - 13.5 fL 04/04/2025 4:25 PM [facility] NRBC Automated 0.0 0.0 per 100 WBC 04/04/2025 4:25 PM [facility] Neutrophils % 75(H) 36 - 65 % 04/04/2025 4:25 PM [facility] Lymphocytes % 17(L) 24 - 43 % 04/04/2025 4:25 PM [facility] Monocytes % 7 3 - 12 % 04/04/2025 4:25 PM [facility] Eosinophils % 1 1 - 4 % 04/04/2025 4:25 PM [facility] Basophils % 0 0 - 2 % 04/04/2025 4:25 PM [facility] Immature Granulocytes % 0 0 % 04/04/2025 4:25 PM [facility] Neutrophils Absolute 7.54 1.50 - 8.10 k/uL 04/04/2025 4:25 PM [facility] Lymphocytes Absolute 1.76 1.10 - 3.70 k/uL 04/04/2025 4:25 PM [facility] Monocytes Absolute 0.67 0.10 - 1.20 k/uL 04/04/2025 4:25 PM [facility] Eosinophils Absolute 0.12 0.00 - 0.44 k/uL 04/04/2025 4:25 PM [facility] Basophils Absolute <0.03 0.00 - 0.20 k/uL 04/04/2025 4:25 PM [facility] Immature Granulocytes Absolute 0.04 0.00 - 0.30 k/uL 04/04/2025 4:25 PM EDT [facility] 04/04/2025 4:25 PM EDT 04/04/2025 4:33 PM EDT us Kym Espino DO HEMATOLOGY ORDERABLES Final Result Performing Organization Address [facility]/ZIP Co de Phone Number [facility] [address] [place] [address] * (ABNORMAL) Brain Natriuretic Peptide (04/04/2025 4:25 PM EDT) NT Pro-BNP 854(H) 0 - 125 pg/mL 04/04/2025 4:25 PM EDT [facility] Blood BLOOD SPECIMEN / Unknown 04/04/2025 4:25 PM EDT 04/04/2025 4:33 PM EDT us Kym Espino DO CHEMISTRY ORDERABLES Final Result Performing Organization Address [facility]/ZIP Co de Phone Number [facility] [address] [place] [address] * (ABNORMAL) Basic Metabolic Panel (04/04/2025 4:25 PM EDT) Sodium 133(L) 136 - 145 mmol/L 04/04/2025 4:25 PM EDT [facility] Potassium 3.7 3.7 - 5.3 mmol/L 04/04/2025 4:25 PM EDT [facility] Chloride 95(L) 98 - 107 mmol/L 04/04/2025 4:25 PM EDT [facility] CO2 24 20 - 31 mmol/L 04/04/2025 4:25 PM EDT [facility] Anion Gap 14 9 - 16 mmol/L 04/04/2025 4:25 PM EDT [facility] Glucose 563(HH) 74 - 99 mg/dL 04/04/2025 4:25 PM EDT [facility] BUN 10 8 - 23 mg/dL 04/04/2025 4:25 PM EDT [facility] Creatinine 0.7 0.70 - 1.20 mg/dL 04/04/2025 4:25 PM EDT [facility] Est, Glom Filt Rate >90 >60 mL/min/1.7 3m2 04/04/2025 4:25 PM EDT [facility] Comment: These results are not intended for use in patients <18 years of age. eGFR results are calculated without a race factor using the 2020 CKD-EPI equation. Careful clinical correlation is recommended, particularly when comparing to results calculated using previous equations. The CKD-EPI equation is less accurate in patients with extremes of muscle mass, extra-renal metabolism of creatine, excessive creatine ingestion, or following therapy that affects renal tubular secretion. BUN/Creatinine Ratio 14 9 - 20 04/04/2025 4:25 PM EDT [facility] Calcium 8.7 8.6 - 10.4 mg/dL 04/04/2025 4:25 PM EDT [facility] Blood BLOOD SPECIMEN / Unknown 04/04/2025 4:25 PM EDT 04/04/2025 4:33 PM EDT us Kym Espino DO CHEMISTRY ORDERABLES Final Result [facility] [address] [phone] * EKG 12 Lead (04/04/2025 4:24 PM EDT) Ventricular Rate 100 BPM [facility] Atrial Rate 100 BPM [facility] P-R Interval 198 ms [facility] QRS Duration 108 ms [facility] Q-T Interval 350 ms [facility] QTc Calculation (Bazett) 451 ms [facility] P [place] 90 degrees [facility] R [place] -11 degrees [facility] T [place] 53 degrees [facility] 04/04/2025 4:24 PM EDT Narrative [facility] - 04/04/2025 11:59 PM EDT Sinus rhythm with Premature atrial complexes Minimal voltage criteria for LVH, may be normal variant ( Vance product ) Septal infarct (cited on or before 19-Mar-2025) Abnormal ECG When compared with ECG of 19-Mar-2025 08:45, Premature atrial complexes are now Present Vent. rate has increased by 34 bpm Serial changes of Septal infarct Present Confirmed by Rui Marquez ([id number]) on 04/04/2025 11:59:09 PM Procedure Note Rui Marquez MD - 04/04/2025 Sinus rhythm with Premature atrial complexes Minimal voltage criteria for LVH, may be normal variant ( Vance product) Septal infarct (cited on or before 19-Mar-2025) Abnormal ECG When compared with ECG of 19-Mar-2025 08:45, Premature atrial complexes are now Present Vent. rate has increased by 34 bpm Serial changes of Septal infarct Present Confirmed by Rui Marquez ([id number]) on 04/04/2025 11:59:09 PM us Kym Espino DO ECG ORDERABLES Final Resul t [facility] documented in this encounter Visit Diagnoses Diagnosis Acute respiratory failure with hypoxia (HCC)- Primary Acute respiratory failure COPD with acute exacerbation (HCC) Obstructive chronic bronchitis with exacerbation Hypoxia Hypoxemia Hypertensive urgency Unspecified essential hypertension Diabetes mellitus, new onset (HCC) Type II or unspecified type diabetes mellitus without mention of complication, not stated as uncontrolled Shortness of breath Abnormal stress test Other nonspecific abnormal cardiovascular system function study Idiopathic cardiomyopathy (HCC) Other primary cardiomyopathies New onset type 2 diabetes mellitus (HCC) Coronary artery disease involving [place] coronary artery of [place] heart without angina pectoris COPD with acute exacerbation (HCC) Obstructive chronic bronchitis with exacerbation Uncontrolled hypertension Unspecified essential hypertension New onset type 2 diabetes mellitus (HCC) Non-ischemic cardiomyopathy (HCC) Other primary cardiomyopathies Hypertensive left ventricular hypertrophy with heart failure (HCC) Coronary artery disease involving [place] coronary artery of [place] heart without angina pectoris Hypertensive urgency Unspecified essential hypertension Abnormal stress test Other nonspecific abnormal cardiovascular system function study Hyperlipidemia LDL goal <70 Other and unspecified hyperlipidemia Abnormal stress test Other nonspecific abnormal cardiovascular system function study Idiopathic cardiomyopathy (HCC) Other primary cardiomyopathies documented in this encounter Admitting Diagnoses Diagnosis Acute respiratory failure with hypoxia (HCC) Acute respiratory failure Hypertensive urgency Unspecified essential hypertension COPD with acute exacerbation (HCC) Obstructive chronic bronchitis with exacerbation documented in this encounter Administered Medications Inactive Administered Medications - up to 3 most recent administrations Medication Order MAR Action Action Date Dose Rate Site 0.9 % sodium chloride infusion IntraVENous, at 5-250 mL/hr, PRN, if patient receiving piggyback infusions and maintenance fluids are not ordered, Starting on Thu04/04/25 at 2001, For piggyback infusion, administer at same rate as piggyback for a total of 25 mL. Enter 25 mL into dose field and piggyback rate into rate field of order. If piggyback is infusing at a rate less than 100 mL/hr, enter 25 mL into dose field and 100 mL/hr into rate field of order. New Bag 04/05/2025 9:17 PM EDT 20 mL/hr 20 mL/hr 0.9 % sodium chloride infusion IntraVENous, at 75 mL/hr, CONTINUOUS, Starting on Thu04/04/25 at 2014, For 24 hours, Complete last bag that is running at 24 hours and then saline lock IV New Bag 04/04/2025 10:21 PM EDT 75 mL/hr acetaminophen (TYLENOL) suppository 650 mg 650 mg, Rectal, EVERY 6 HOURS PRN, Starting on Thu04/04/25 at 2001, Until Paige 04/06/25 at 2043, Pain Mild (1-3), allowed for higher pain score per patient request, Fever, For temp greater than 100.4 F (38 C), Administer if oral route cannot be used. acetaminophen (TYLENOL) tablet 650 mg 650 mg, Oral, EVERY 6 HOURS PRN, Starting on Thu04/04/25 at 2001, Until Paige 04/06/25 at 2043, Pain Mild (1-3), allowed for higher pain score per patient request, Fever, For temp greater than 100.4 F (38 C), Maximum dose of acetaminophen is 4000 mg from all sources in 24 hours. albuterol (PROVENTIL) (2.5 MG/3ML) 0.083% nebulizer solution 2.5 mg 2.5 mg, Nebulization, EVERY 6 HOURS PRN, Starting on Thu04/04/25 at 1853, Until Thu04/06/25 at 2044, Wheezing, Initiate RT Bronchodilator Protocol: Yes - Inpatient Protocol Given 04/04/2025 7:12 PM EDT 2.5 mg albuterol (PROVENTIL) (2.5 MG/3ML) 0.083% nebulizer solution 2.5 mg 2.5 mg, Nebulization, 4 TIMES DAILY RESP, First dose on Thu04/04/25 at 2014, Until Discontinued, Initiate RT Bronchodilator Protocol: Yes - Inpatient Protocol Given 04/04/2025 8:32 PM EDT 2.5 mg albuterol (PROVENTIL) (2.5 MG/3ML) 0.083% nebulizer solution 2.5 mg 2.5 mg, Nebulization, EVERY 4 HOURS PRN, Starting on Thu04/05/25 at 0211, Until Thu04/06/25 at 2044, Wheezing, Initiate RT Bronchodilator Protocol: Yes - Inpatient Protocol Given 04/06/2025 12:45 AM EDT 2.5 mg aspirin chewable tablet 81 mg 81 mg, Oral, DAILY, First dose on Thu04/06/25 at 1215, Until Discontinued Given 04/06/2025 1:05 PM EDT 81 mg atorvastatin (LIPITOR) tablet 40 mg 40 mg, Oral, NIGHTLY, First dose on Thu04/06/25 at 2100, Until Discontinued azithromycin (ZITHROMAX) 500 mg in sodium chloride 0.9 % 250 mL IVPB ([id number]) 500 mg, IntraVENous, EVERY 24 HOURS, 3 doses, First dose on Thu04/04/25 at 2014, Last dose on Thu04/06/25 at 2014, Antimicrobial Indications: COPD Exacerbation, COPD exacerbation duration of therapy: Other, Other COPD Exacerbation Duration: 3 days, Use 20mm (Blue) [id number] Adapter Preparation instructions: Attach medication vial to one 20mm (Blue) [id number] adapter. Kenneth fluid bag with adapter, mix, and administer per order. New Bag 04/05/2025 9:14 PM EDT 500 mg 250 mL/hr New Bag 04/04/2025 10:55 PM EDT 500 mg 250 mL/hr benzonatate (TESSALON) capsule 100 mg 100 mg, Oral, 3 TIMES DAILY PRN, Starting on Thu04/04/25 at 2005, Until Paige 04/06/25 at 2043, Cough Given 04/05/2025 12:27 PM EDT 100 mg cefTRIAXone (ROCEPHIN) 1,000 mg in sterile water 10 mL IV syringe 1,000 mg, IntraVENous, EVERY 24 HOURS, First dose on Thu04/04/25 at 2014, For 5 days, Administer as slow IV Push over 5 mins Reconstitute 1 g vials with 9.6 mL of designated diluent to produce a 100 mg/mL solution. Given 04/05/2025 8:52 PM EDT 1,000 mg Given 04/04/2025 10:49 PM EDT 1,000 mg dextrose 10 % infusion IntraVENous, at 100 mL/hr, CONTINUOUS PRN, if blood glucose remains LESS THAN 70 mg/dL after 2 dextrose 10% intravenous boluses or administration of glucagon, Starting on Thu04/04/25 at 2007, If blood glucose fails to stabilize after 2 dextrose 10% intravenous boluses or glucagon administration, start dextrose 10% infusion at 100 mL/hour and repeat blood glucose at 30 and 60 minutes. If blood glucose is GREATER THAN 70 mg/dL after 60 minutes, discontinue dextrose 10% infusion. dextrose bolus 10% 125 mL 125 mL, IntraVENous, at 937.5 mL/hr, Administer over 8 Minutes, PRN, Other, Blood glucose 40 - 69 mg/dL and patient NOT ALERT or NPO, Starting on Thu04/04/25 at 2007, Repeat blood glucose in 15 minutes. If blood glucose remains LESS THAN 70 mg/dL, repeat treatment and recheck blood glucose in 15 minutes x 2. If using glycemic management system, dose as instructed per system. If blood glucose remains LESS THAN 70 mg/dL after 2 intravenous boluses start dextrose 10% at 100 mL/hour and notify provider. dextrose bolus 10% 250 mL 250 mL, IntraVENous, at 937.5 mL/hr, Administer over 16 Minutes, PRN, Other, Blood glucose LESS THAN 40 mg/dL and patient NOT ALERT or NPO, Starting on Thu04/04/25 at 2007, Repeat blood glucose in 15 minutes. If blood glucose remains LESS THAN 70 mg/dL, repeat treatment and recheck blood glucose in 15 minutes x 2. If using glycemic management system, dose as instructed per system. If blood glucose remains LESS THAN 70 mg/dL after 2 intravenous boluses start dextrose 10% at 100 mL/hour and notify provider. enoxaparin (LOVENOX) injection 40 mg 40 mg, SubCUTAneous, DAILY, First dose on Thu04/04/25 at 2345, Until Discontinued, Indication of Use: Prophylaxis-DVT/PE, Administer by deep subCUTAneous injection with pt lying down. Alternate injection sites on abdominal wall. Do not rub site after injection. Check with provider prior to any invasive procedure. Given 04/06/2025 8:28 AM EDT 40 mg Abdomen LLQ (Left Lower Quadrant) Given 04/05/2025 8:18 AM EDT 40 mg Ar m Right Given 04/04/2025 11:55 PM EDT 40 mg A bdomen LLQ (Left Lower Quadrant) glipiZIDE (GLUCOTROL) tablet 5 mg 5 mg, Oral, DAILY BEFORE BREAKFAST, First dose on Thu04/06/25 at 0700, Until Discontinued, Substituted for glyburide (DIABETA). Given 04/06/2025 7:21 AM EDT 5 mg glucagon injection 1 mg 1 mg, IntraMUSCular, PRN, Starting on Thu04/04/25 at 2007, Until Thu04/06/25 at 2043, Low blood sugar, Blood glucose less than 70 mg/dL and patient NOT ALERT or NPO and does not have IV access., After administration, attempt intravenous access and start D5W at 100 mL/hr. Repeat blood glucose in 15 minutes x2 and notify provider. Reconstitute powder for injection by adding 1 mL of first aid teacher-supplied sterile diluent or sterile water for injection to a vial containing 1 mg of the drug, to provide solutions containing 1 mg/mL. Shake vial gently to dissolve. glucose chewable tablet 16 g 16 g (4 tablet), Oral, PRN, Starting on Thu04/04/25 at 2007, Until Thu04/06/25 at 2043, Low blood sugar, If blood glucose is LESS THAN 70 mg/dL and patient is alert and tolerating oral. Give 4 tablets (16g) Repeat blood glucose in 15 minutes. If blood glucose is LESS THAN 70 mg/dL, repeat treatment and recheck blood glucose in 15 minutes x 2. If blood glucose remains LESS THAN 70 mg/dL, notify provider. guaiFENesin (MUCINEX) extended release tablet 600 mg 600 mg, Oral, 2 TIMES DAILY, First dose on Thu04/04/25 at 2100, Until Discontinued, Do not crush or break. Given 04/06/2025 8:27 AM EDT 600 mg Given 04/05/2025 9:18 PM EDT 600 mg Given 04/05/2025 8:18 AM EDT 600 mg guaiFENesin-dextromethorphan (ROBITUSSIN DM) 100-10 MG/5ML syrup 5 mL 5 mL, Oral, EVERY 4 HOURS PRN, Starting on Thu04/04/25 at 2005, Until Thu04/06/25 at 2043, Cough hydrALAZINE (APRESOLINE) injection 10 mg 10 mg, IntraVENous, ONCE, 1 dose, On Thu04/04/25 at 1999 Given 04/04/2025 8:05 PM EDT 10 mg hydrALAZINE (APRESOLINE) injection 10 mg 10 mg, IntraVENous, EVERY 4 HOURS PRN, Starting on Thu04/04/25 at 2008, Until Thu04/06/25 at 2043, SBP > 150 hydroCHLOROthiazide (HYDRODIURIL) tablet 25 mg 25 mg, Oral, DAILY, First dose on Thu04/06/25 at 1630, Until Discontinued Given 04/06/2025 5:43 PM EDT 25 mg insulin lispro (HUMALOG,ADMELOG) injection vial 0-16 Units 0-16 Units, SubCUTAneous, 4 TIMES DAILY BEFORE MEALS & NIGHTLY, First dose on Thu04/04/25 at 2100, Until Discontinued, High Dose Corrective Algorithm Glucose: Dose: 70-179 No Insulin 180-249 4 Units 250-299 8 Units 300-349 12 Units Over 349 16 Units and notify physician Administer as soon as possible within 60 minutes of last blood glucose check Given 04/06/2025 5:42 PM EDT 16 Units Abdomen RUQ (Right Upper Quadrant) Given 04/06/2025 1:05 PM EDT 16 Units Ab domen LUQ (Left Upper Quadrant) Given 04/05/2025 8:46 PM EDT 8 Units Ar m Left iopamidol (ISOVUE-370) 76 % injection 75 mL 75 mL, IntraVENous, IMG ONCE PRN, 1 dose, Starting on Thu04/04/25 at 1855, Until Thu04/04/25 at 1903, Other Given 04/04/2025 7:03 PM EDT 75 mLs ipratropium 0.5 mg-albuterol 2.5 mg (DUONEB) nebulizer solution 1 Dose 1 Dose, Inhalation, Once, 1 dose, On Thu04/04/25 at 1630, Initiate RT Bronchodilator Protocol: Yes - Inpatient Protocol Given 04/04/2025 4:51 PM EDT 1 Dose ipratropium 0.5 mg-albuterol 2.5 mg (DUONEB) nebulizer solution 1 Dose 1 Dose, Inhalation, 4 times daily, First dose (after last modification) on Thu04/05/25 at 0600, Until Discontinued, Initiate RT Bronchodilator Protocol: Yes - Inpatient Protocol Given 04/06/2025 10:52 AM EDT 1 Dose Given 04/06/2025 5:28 AM EDT 1 Dose Given 04/05/2025 8:30 PM EDT 1 Dose labetalol (NORMODYNE;TRANDATE) injection 10 mg 10 mg, IntraVENous, ONCE, 1 dose, On Thu04/04/25 at 1900 Given 04/04/2025 6:58 PM EDT 10 mg losartan (COZAAR) tablet 100 mg 100 mg, Oral, DAILY, First dose on Thu04/05/25 at 0100, Until Discontinued Given 04/06/2025 8:27 AM EDT 100 mg Given 04/05/2025 1:16 AM EDT 100 mg metFORMIN (GLUCOPHAGE) tablet 500 mg 500 mg, Oral, Once, 1 dose, On Thu04/04/25 at 2000 Given 04/04/2025 8:05 PM EDT 500 mg metFORMIN (GLUCOPHAGE) tablet 500 mg 500 mg, Oral, 2 TIMES DAILY WITH MEALS, First dose on Thu04/05/25 at 0800, Until Discontinued Given 04/06/2025 5:42 PM EDT 500 mg Given 04/06/2025 7:25 AM EDT 500 mg Given 04/05/2025 5:08 PM EDT 500 mg methylPREDNISolone sodium succ (SOLU-MEDROL) 125 mg in sterile water 2 mL injection 125 mg, IntraVENous, ONCE, On Thu04/04/25 at 2015, For 1 dose, Reconstitute 125 mg vial with 2 mL diluent. Given 04/04/2025 8:08 PM EDT 125 mg methylPREDNISolone sodium succ (SOLU-MEDROL) 40 mg in sterile water 1 mL injection 40 mg, IntraVENous, EVERY 6 HOURS, First dose on Thu04/05/25 at 0200, For 48 hours, Reconstitute each 40 mg vial with 1 mL of diluent. Given 04/06/2025 2:42 PM EDT 40 mg Given 04/06/2025 8:28 AM EDT 40 mg Given 04/06/2025 1:22 AM EDT 40 mg metoprolol succinate (TOPROL XL) extended release tablet 25 mg 25 mg, Oral, DAILY, First dose on Thu04/05/25 at 1630, Until Discontinued, Do not crush or chew. Given 04/06/2025 1:05 PM EDT 25 mg Given 04/05/2025 5:08 PM EDT 25 mg morphine (PF) injection 2 mg 2 mg, IntraVENous, ONCE, 1 dose, On Thu04/04/25 at 2100, If oral and IV narcotics ordered, use oral first and only use IV if oral is ineffective or cannot take oral. Do Not give oral and IV within 1 hour of each other unless specifically ordered. Given 04/04/2025 8:54 PM EDT 2 mg niCARdipine (CARDENE) 25 mg in sodium chloride 0.9 % 250 mL infusion (Rlmn4Noy) 2.5-15 mg/hr (25-150 mL/hr), IntraVENous, CONTINUOUS, Starting on Thu04/04/25 at 2200, Until Thu04/05/25 at 1600, Titrate Infusion? Yes, Initial Infusion Rate: 5 mg/hr, Goal of Therapy is: SBP less than 160 mmHg, Contact Provider if: Patient is receiving the maximum dose and is not achieving the goal of therapy, Do not administer through small veins (e.g. those on the dorsum of the hand or wrist); change the infusion site every 12 hours if a peripheral vein is used. If Titrate Infusion? is No : Disregard instructions below. If Titrate infusion? is Yes : Titrate in increments of 2.5 mg/hr no more frequently than every 15 minutes to goal of therapy. When approaching therapeutic goal or weaning off, smaller titration increments of 1 mg/hr no faster than every 15 minutes may be used to maintain goal. Use 20mm (Blue) [id number] Adapter Preparation instructions: Attach medication vial to one 20mm (Blue) [id number] adapter. Kenneth fluid bag with adapter, mix, and administer per order. Rate/Dose Change 04/05/2025 12:18 AM EDT 1 mg/hr 10 mL/hr Rate/Dose Change 04/05/2025 12:00 AM EDT 2 mg/hr 20 mL/ hr Rate/Dose Change 04/04/2025 11:20 PM EDT 3 mg/hr 30 mL/ hr ondansetron (ZOFRAN) injection 4 mg 4 mg, IntraVENous, EVERY 6 HOURS PRN, Starting on Thu04/04/25 at 2001, Until Paige 04/06/25 at 2043, Nausea, Vomiting, Administer if oral route cannot be used. ondansetron (ZOFRAN-ODT) disintegrating tablet 4 mg 4 mg, Oral, EVERY 8 HOURS PRN, Starting on Thu04/04/25 at 2001, Until Thu04/06/25 at 2043, Nausea, Vomiting polyethylene glycol (GLYCOLAX) packet 17 g 17 g, Oral, DAILY PRN, Starting on Thu04/04/25 at 2001, Until Thu04/06/25 at 2043, Constipation, First line therapy for constipation predniSONE (DELTASONE) tablet 40 mg 40 mg, Oral, DAILY, 3 doses, First dose on Thu04/07/25 at 0900, Last dose on Thu04/09/25 at 0900 sodium chloride 0.9 % bolus 1,000 mL 1,000 mL, IntraVENous, at 1,000 mL/hr, Administer over 1 Hours, ONCE, On Thu04/04/25 at 1900, For 1 dose New Bag 04/04/2025 7:16 PM EDT 1,000 mLs 1000 mL/hr sodium chloride flush 0.9 % injection 5-40 mL 5-40 mL, IntraVENous, EVERY 12 HOURS SCHEDULED (2 times per day), First dose on Thu04/04/25 at 2100, Until Discontinued, For Line Patency: Peripheral IV = 5 mL; Midline or Central Line = 10 mL/lumen. If following IV push medication, administer flush at same rate as the IV push. Flush volume is determined by type of infusion therapy being given. For non-viscous solutions use: Peripheral IV = 5 mL Midline or Central Line = 10 mL/lumen For viscous solutions (i.e. blood components, parenteral nutrition, contrast media, or after obtaining blood sample) use: Peripheral IV = 10 mL Midline or Central Line = 20 mL/lumen Given 04/06/2025 8:28 AM EDT 10 mLs Given 04/05/2025 8:47 PM EDT 10 mLs Given 04/05/2025 8:19 AM EDT 10 mLs sodium chloride flush 0.9 % injection 5-40 mL 5-40 mL, IntraVENous, PRN, Starting on Thu04/04/25 at 2001, Until Paige 04/06/25 at 2043, Line Care, After every IV line use, For Line Patency: Peripheral IV = 5 mL; Midline or Central Line = 10 mL/lumen. If following IV push medication, administer flush at same rate as the IV push. Flush volume is determined by type of infusion therapy being given. For non-viscous solutions use: Peripheral IV = 5 mL Midline or Central Line = 10 mL/lumen For viscous solutions (i.e. blood components, parenteral nutrition, contrast media, or after obtaining blood sample) use: Peripheral IV = 10 mL Midline or Central Line = 20 mL/lumen Given 04/06/2025 1:05 PM EDT 10 mLs Given 04/05/2025 2:32 PM EDT 5 mLs technetium sestamibi (CARDIOLITE) injection 10 millicurie 10 millicurie, IntraVENous, IMG ONCE PRN, 1 dose, Starting on Paige 04/06/25 at 1048, Until Paige 04/06/25 at 1122, Other Given 04/06/2025 11:22 AM EDT 10 millicuries technetium sestamibi (CARDIOLITE) injection 30 millicurie 30 millicurie, IntraVENous, IMG ONCE PRN, 1 dose, Starting on Paige 04/06/25 at 1048, Until Paige 04/06/25 at 1122, Other Given 04/06/2025 11:22 AM EDT 30 millicuries documented in this encounter Active and Recently Administered Medications Times are shown in EDT. Scheduled Medication Order 04/04/2025 04/05/2025 04/06/2025 albuterol (PROVENTIL) (2.5 MG/3ML) 0.083% nebulizer solution 2.5 mg (CANCELED) 2.5 mg, Nebulization, 4 TIMES DAILY RESP, First dose on Thu04/04/25 at 2014, Until Discontinued, Initiate RT Bronchodilator Protocol: Yes - Inpatient Protocol 2031 (Given - Provider: Martínez Jane TECHNICAL SUPPORT 1 SOFTWARE ENGINEER - Comment: pt SOB) aspirin chewable tablet 81 mg 81 mg, Oral, DAILY, First dose on Thu04/06/25 at 1215, Until Discontinued 1305 (Given - Provider: Roro Arreola) atorvastatin (LIPITOR) tablet 40 mg 40 mg, Oral, NIGHTLY, First dose on Thu04/06/25 at 2100, Until Discontinued azithromycin (ZITHROMAX) 500 mg in sodium chloride 0.9 % 250 mL IVPB (Vsta1Dng) 500 mg, IntraVENous, EVERY 24 HOURS, 3 doses, First dose on Thu04/04/25 at 2014, Last dose on Thu04/06/25 at 2014, Antimicrobial Indications: COPD Exacerbation, COPD exacerbation duration of therapy: Other, Other COPD Exacerbation Duration: 3 days, Use 20mm (Blue) [id number] Adapter Preparation instructions: Attach medication vial to one 20mm (Blue) [id number] adapter. Kenneth fluid bag with adapter, mix, and administer per order. 225 (New Bag - Provider: Gail Etienne RN)2354 (Stopped - Provider: Gail Etienne RN) 2113 (New Bag - Provider: Amisha Gutierrez RN)2222 (Stopped - Provider: Amisha Gutierrez RN) cefTRIAXone (ROCEPHIN) 1,000 mg in sterile water 10 mL IV syringe 1,000 mg, IntraVENous, EVERY 24 HOURS, First dose on Thu04/04/25 at 2014, For 5 days, Administer as slow IV Push over 5 mins Reconstitute 1 g vials with 9.6 mL of designated diluent to produce a 100 mg/mL solution. 2248 (Given - Provider: Gail Etienne RN) 2051 (Given - Provider: Amisha Gutierrez RN) enoxaparin (LOVENOX) injection 40 mg 40 mg, SubCUTAneous, DAILY, First dose on Thu04/04/25 at 2345, Until Discontinued, Indication of Use: Prophylaxis-DVT/PE, Administer by deep subCUTAneous injection with pt lying down. Alternate injection sites on abdominal wall. Do not rub site after injection. Check with provider prior to any invasive procedure. 2355 (Given - Provider: Gail Etienne RN) 0818 (Given - Provider: Melly Sandy RN) 0828 (Given - Provider: Roro Arreola) glipiZIDE (GLUCOTROL) tablet 5 mg 5 mg, Oral, DAILY BEFORE BREAKFAST, First dose on Paige 04/06/25 at 0700, Until Discontinued, Substituted for glyburide (DIABETA). 0721 (Given - Provider: Roro Arreola) guaiFENesin (MUCINEX) extended release tablet 600 mg 600 mg, Oral, 2 TIMES DAILY, First dose on Thu04/04/25 at 2100, Until Discontinued, Do not crush or break. 2248 (Given - Provider: Gail Etienne RN) 0818 (Given - Provider: Melly Sandy RN)8 (Given - Provider: Amisha Gutierrez RN) 08 (Given - Provider: Roro Arreola) hydrALAZINE (APRESOLINE) injection 10 mg (COMPLETED) 10 mg, IntraVENous, ONCE, 1 dose, On Thu04/04/25 at 2000 2004 (Given - Provider: Gail Etienne RN) hydroCHLOROthiazide (HYDRODIURIL) tablet 25 mg 25 mg, Oral, DAILY, First dose on Paige 04/06/25 at 1630, Until Discontinued 174 (Given - Provider: Roro Arreola) insulin lispro (HUMALOG,ADMELOG) injection vial 0-16 Units 0-16 Units, SubCUTAneous, 4 TIMES DAILY BEFORE MEALS & NIGHTLY, First dose on Thu04/04/25 at 2100, Until Discontinued, High Dose Corrective Algorithm Glucose: Dose: 70-179 No Insulin 180-249 4 Units 250-299 8 Units 300-349 12 Units Over 349 16 Units and notify physician Administer as soon as possible within 60 minutes of last blood glucose check 2318 (Given - Provider: Gail Etienne RN - Comment: [id number]) 0819 (Given - Provider: Melly Sandy RN)1227 (Given - Provider: Melly Sandy RN)1708 (Given - Provider: Melly Sandy RN)2046 (Given - Provider: Amisha Gutierrez RN - Comment: FSBS 253) 0829 (Not Given - Provider: Roro Arreola - Reason: Pt NPO)1305 (Given - Provider: Roro Arreola)1742 (Given - Provider: Roro Arreola) ipratropium 0.5 mg-albuterol 2.5 mg (DUONEB) nebulizer solution 1 Dose (COMPLETED) 1 Dose, Inhalation, Once, 1 dose, On Thu04/04/25 at 1630, Initiate RT Bronchodilator Protocol: Yes - Inpatient Protocol 1651 (Given - Provider: Kemi Pompa RCP) ipratropium 0.5 mg-albuterol 2.5 mg (DUONEB) nebulizer solution 1 Dose 1 Dose, Inhalation, 4 times daily, First dose (after last modification) on Thu04/05/25 at 0600, Until Discontinued, Initiate RT Bronchodilator Protocol: Yes - Inpatient Protocol 0438 (Given - Provider: Martínez Jane RCP)1102 (Given - Provider: Stephan Manriquez RCP)1553 (Given - Provider: Stephan Manriquez RCP)2030 (Given - Provider: Tamara Alfaro RCP) 0528 (Given - Provider: Tamara Alfaro RCP)1052 (Given - Provider: Stephan Manriquez RCP)1554 (Not Given - Provider: Stephan Manriquez RCP - Reason: 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) labetalol (NORMODYNE;TRANDATE) injection 10 mg (COMPLETED) 10 mg, IntraVENous, ONCE, 1 dose, On Thu04/04/25 at 1900 1858 (Given - Provider: Gail Etienne RN) losartan (COZAAR) tablet 100 mg 100 mg, Oral, DAILY, First dose on Thu04/05/25 at 0100, Until Discontinued 011 (Given - Provider: Gail Etienne RN) 0827 (Given - Provider: Roro Arreola) metFORMIN (GLUCOPHAGE) tablet 500 mg (COMPLETED) 500 mg, Oral, Once, 1 dose, On Thu04/04/25 at 2000 2005 (Given - Provider: Gail Etienne RN) metFORMIN (GLUCOPHAGE) tablet 500 mg 500 mg, Oral, 2 TIMES DAILY WITH MEALS, First dose on Thu04/05/25 at 0800, Until Discontinued 0818 (Given - Provider: Melly Sandy RN)1708 (Given - Provider: Melly Sandy RN) 0725 (Given - Provider: Roro Arreola)1742 (Given - Provider: Roro Arreola) methylPREDNISolone sodium succ (SOLU-MEDROL) 125 mg in sterile water 2 mL injection (COMPLETED) 125 mg, IntraVENous, ONCE, On Thu04/04/25 at 2015, For 1 dose, Reconstitute 125 mg vial with 2 mL diluent. 2007 (Given - Provider: Gail Etienne RN) methylPREDNISolone sodium succ (SOLU-MEDROL) 40 mg in sterile water 1 mL injection(Linked Group 1) 40 mg, IntraVENous, EVERY 6 HOURS, First dose on Thu04/05/25 at 0200, For 48 hours, Reconstitute each 40 mg vial with 1 mL of diluent. 020 (Given - Provider: Gail Etienne RN)0818 (Given - Provider: Melly Sandy RN)1432 (Given - Provider: Melly Sandy RN)2102 (Given - Provider: Amisha Gutierrez RN) 0122 (Given - Provider: Amisha Gutierrez RN)0828 (Given - Provider: Roro Arreola)1442 (Given - Provider: Roro Arreola) metoprolol succinate (TOPROL XL) extended release tablet 25 mg 25 mg, Oral, DAILY, First dose on Thu04/05/25 at 1630, Until Discontinued, Do not crush or chew. 1708 (Given - Provider: Melly Sanyd RN) 1305 (Given - Provider: Roro Arreola) morphine (PF) injection 2 mg (COMPLETED) 2 mg, IntraVENous, ONCE, 1 dose, On Thu04/04/25 at 2100, If oral and IV narcotics ordered, use oral first and only use IV if oral is ineffective or cannot take oral. Do Not give oral and IV within 1 hour of each other unless specifically ordered. 2053 (Given - Provider: Gail Etienne RN) predniSONE (DELTASONE) tablet 40 mg(Linked Group 1) 40 mg, Oral, DAILY, 3 doses, First dose on Thu04/07/25 at 0900, Last dose on Thu04/09/25 at 0900 sodium chloride 0.9 % bolus 1,000 mL (COMPLETED) 1,000 mL, IntraVENous, at 1,000 mL/hr, Administer over 1 Hours, ONCE, On Thu04/04/25 at 1900, For 1 dose 1915 (New Bag - Provider: Gail Etienne RN)1952 (Stopped - Provider: Gail Etienne RN) sodium chloride flush 0.9 % injection 5-40 mL 5-40 mL, IntraVENous, EVERY 12 HOURS SCHEDULED (2 times per day), First dose on Thu04/04/25 at 2100, Until Discontinued, For Line Patency: Peripheral IV = 5 mL; Midline or Central Line = 10 mL/lumen. If following IV push medication, administer flush at same rate as the IV push. Flush volume is determined by type of infusion therapy being given. For non-viscous solutions use: Peripheral IV = 5 mL Midline or Central Line = 10 mL/lumen For viscous solutions (i.e. blood components, parenteral nutrition, contrast media, or after obtaining blood sample) use: Peripheral IV = 10 mL Midline or Central Line = 20 mL/lumen 2249 (Given - Provider: Gail Etienne RN) 08 (Given - Provider: Melly Sandy RN)204 (Given - Provider: Amisha Gutierrez, SERENITY) 0828 (Given - Provider: Roro Arreola) Continuous Medication Order 04/04/2025 04/05/2025 04/06/2025 0.9 % sodium chloride infusion (CANCELED) IntraVENous, at 75 mL/hr, CONTINUOUS, Starting on Thu04/04/25 at 2014, For 24 hours, Complete last bag that is running at 24 hours and then saline lock IV 2220 (New Bag - Provider: Gail Etienne RN)235 (Stopped - Provider: Gail Etienne RN) niCARdipine (CARDENE) 25 mg in sodium chloride 0.9 % 250 mL infusion ([id number]) (CANCELED) 2.5-15 mg/hr (25-150 mL/hr), IntraVENous, CONTINUOUS, Starting on Thu04/04/25 at 2200, Until Thu04/05/25 at 1600, Titrate Infusion? Yes, Initial Infusion Rate: 5 mg/hr, Goal of Therapy is: SBP less than 160 mmHg, Contact Provider if: Patient is receiving the maximum dose and is not achieving the goal of therapy, Do not administer through small veins (e.g. those on the dorsum of the hand or wrist); change the infusion site every 12 hours if a peripheral vein is used. If Titrate Infusion? is No : Disregard instructions below. If Titrate infusion? is Yes : Titrate in increments of 2.5 mg/hr no more frequently than every 15 minutes to goal of therapy. When approaching therapeutic goal or weaning off, smaller titration increments of 1 mg/hr no faster than every 15 minutes may be used to maintain goal. Use 20mm (Blue) [id number] Adapter Preparation instructions: Attach medication vial to one 20mm (Blue) [id number] adapter. Kenneth fluid bag with adapter, mix, and administer per order. 2201 (New Bag - Provider: Gail Etienne, SERENITY)223 (Rate/Dose Change - Provider: Mele Knowles RN)2320 (Rate/Dose Change - Provider: Gail Etienne RN) 0000 (Rate/Dose Change - Provider: Gail Etienne RN)0018 (Rate/Dose Change - Provider: Gail Etienne RN)0034 (Stopped - Provider: Gail Etienne RN) PRN Medication Order 04/04/2025 04/05/2025 04/06/2025 0.9 % sodium chloride infusion IntraVENous, at 5-250 mL/hr, PRN, if patient receiving piggyback infusions and maintenance fluids are not ordered, Starting on Thu04/04/25 at 2001, For piggyback infusion, administer at same rate as piggyback for a total of 25 mL. Enter 25 mL into dose field and piggyback rate into rate field of order. If piggyback is infusing at a rate less than 100 mL/hr, enter 25 mL into dose field and 100 mL/hr into rate field of order. 2116 (New Bag - Provider: Amisha Gutierrez RN) acetaminophen (TYLENOL) suppository 650 mg(Linked Group 2) 650 mg, Rectal, EVERY 6 HOURS PRN, Starting on Thu04/04/25 at 2001, Until Paige 04/06/25 at 2043, Pain Mild (1-3), allowed for higher pain score per patient request, Fever, For temp greater than 100.4 F (38 C), Administer if oral route cannot be used. acetaminophen (TYLENOL) tablet 650 mg(Linked Group 2) 650 mg, Oral, EVERY 6 HOURS PRN, Starting on Thu04/04/25 at 2001, Until Thu04/06/25 at 2043, Pain Mild (1-3), allowed for higher pain score per patient request, Fever, For temp greater than 100.4 F (38 C), Maximum dose of acetaminophen is 4000 mg from all sources in 24 hours. albuterol (PROVENTIL) (2.5 MG/3ML) 0.083% nebulizer solution 2.5 mg 2.5 mg, Nebulization, EVERY 6 HOURS PRN, Starting on Thu04/04/25 at 1853, Until Thu04/06/25 at 2043, Wheezing, Initiate RT Bronchodilator Protocol: Yes - Inpatient Protocol 1911 (Given - Provider: Martínez Jane RCP) albuterol (PROVENTIL) (2.5 MG/3ML) 0.083% nebulizer solution 2.5 mg 2.5 mg, Nebulization, EVERY 4 HOURS PRN, Starting on Thu04/05/25 at 0211, Until Thu04/06/25 at 2043, Wheezing, Initiate RT Bronchodilator Protocol: Yes - Inpatient Protocol 44 (Given - Provider: Tamara Alfaro RCP) benzonatate (TESSALON) capsule 100 mg 100 mg, Oral, 3 TIMES DAILY PRN, Starting on Thu04/04/25 at 2005, Until Thu04/06/25 at 2043, Cough 1227 (Given - Provider: Melly Sandy RN) dextrose 10 % infusion IntraVENous, at 100 mL/hr, CONTINUOUS PRN, if blood glucose remains LESS THAN 70 mg/dL after 2 dextrose 10% intravenous boluses or administration of glucagon, Starting on Thu04/04/25 at 2007, If blood glucose fails to stabilize after 2 dextrose 10% intravenous boluses or glucagon administration, start dextrose 10% infusion at 100 mL/hour and repeat blood glucose at 30 and 60 minutes. If blood glucose is GREATER THAN 70 mg/dL after 60 minutes, discontinue dextrose 10% infusion. dextrose bolus 10% 125 mL(Linked Group 3) 125 mL, IntraVENous, at 937.5 mL/hr, Administer over 8 Minutes, PRN, Other, Blood glucose 40 - 69 mg/dL and patient NOT ALERT or NPO, Starting on Thu04/04/25 at 2007, Repeat blood glucose in 15 minutes. If blood glucose remains LESS THAN 70 mg/dL, repeat treatment and recheck blood glucose in 15 minutes x 2. If using glycemic management system, dose as instructed per system. If blood glucose remains LESS THAN 70 mg/dL after 2 intravenous boluses start dextrose 10% at 100 mL/hour and notify provider. dextrose bolus 10% 250 mL(Linked Group 3) 250 mL, IntraVENous, at 937.5 mL/hr, Administer over 16 Minutes, PRN, Other, Blood glucose LESS THAN 40 mg/dL and patient NOT ALERT or NPO, Starting on Thu04/04/25 at 2007, Repeat blood glucose in 15 minutes. If blood glucose remains LESS THAN 70 mg/dL, repeat treatment and recheck blood glucose in 15 minutes x 2. If using glycemic management system, dose as instructed per system. If blood glucose remains LESS THAN 70 mg/dL after 2 intravenous boluses start dextrose 10% at 100 mL/hour and notify provider. glucagon injection 1 mg 1 mg, IntraMUSCular, PRN, Starting on Thu04/04/25 at 2007, Until Thu04/06/25 at 2043, Low blood sugar, Blood glucose less than 70 mg/dL and patient NOT ALERT or NPO and does not have IV access., After administration, attempt intravenous access and start D5W at 100 mL/hr. Repeat blood glucose in 15 minutes x2 and notify provider. Reconstitute powder for injection by adding 1 mL of first aid teacher-supplied sterile diluent or sterile water for injection to a vial containing 1 mg of the drug, to provide solutions containing 1 mg/mL. Shake vial gently to dissolve. glucose chewable tablet 16 g 16 g (4 tablet), Oral, PRN, Starting on Thu04/04/25 at 2007, Until Paige 04/06/25 at 2043, Low blood sugar, If blood glucose is LESS THAN 70 mg/dL and patient is alert and tolerating oral. Give 4 tablets (16g) Repeat blood glucose in 15 minutes. If blood glucose is LESS THAN 70 mg/dL, repeat treatment and recheck blood glucose in 15 minutes x 2. If blood glucose remains LESS THAN 70 mg/dL, notify provider. guaiFENesin-dextromethorp moran (ROBITUSSIN DM) 100-10 MG/5ML syrup 5 mL 5 mL, Oral, EVERY 4 HOURS PRN, Starting on e 04/04/25 at 2005, Until Paige 04/06/25 at 2044, Cough heparin (porcine) injection (CANCELED) PRN, Starting on Paige 04/06/25 at 1555, Until Paige 04/06/25 at 1604, Intra-procedure(Cath) 1555 (Given - Provider: Roslyn Ricci RN) hydrALAZINE (APRESOLINE) injection 10 mg 10 mg, IntraVENous, EVERY 4 HOURS PRN, Starting on Thu04/04/25 at 2008, Until Paige 04/06/25 at 2044, SBP > 150 iopamidol (ISOVUE-370) 76 % injection 75 mL (COMPLETED) 75 mL, IntraVENous, IMG ONCE PRN, 1 dose, Starting on Thu04/04/25 at 1855, Until Thu04/04/25 at 1903, Other 1903 (Given - Provider: Soila Hernandez) iopamidol (ISOVUE-370) 76 % injection (CANCELED) PRN, Starting on Paige 04/06/25 at 1604, Until Paige 04/06/25 at 1604, Intra-procedure(Cath) 1604 (Given - Provider: Rui Marquez MD) lidocaine 1 % injection (CANCELED) PRN, Starting on Paige 04/06/25 at 1550, Until Paige 04/06/25 at 1604, Intra-procedure(Cath) 1550 (Given - Provider: Rui Marquez MD) nitroGLYCERIN injection (CANCELED) PRN, Starting on Paige 04/06/25 at 1551, Until Paige 04/06/25 at 1604, Intra-procedure(Cath) 1551 (Given - Provider: Rui Marquez MD) ondansetron (ZOFRAN) injection 4 mg(Linked Group 4) 4 mg, IntraVENous, EVERY 6 HOURS PRN, Starting on Thu04/04/25 at 2001, Until Paige 04/06/25 at 2043, Nausea, Vomiting, Administer if oral route cannot be used. ondansetron (ZOFRAN-ODT) disintegrating tablet 4 mg(Linked Group 4) 4 mg, Oral, EVERY 8 HOURS PRN, Starting on Thu04/04/25 at 2001, Until Thu04/06/25 at 2043, Nausea, Vomiting polyethylene glycol (GLYCOLAX) packet 17 g 17 g, Oral, DAILY PRN, Starting on Thu04/04/25 at 2001, Until Thu04/06/25 at 2043, Constipation, First line therapy for constipation sodium chloride flush 0.9 % injection 5-40 mL 5-40 mL, IntraVENous, PRN, Starting on Thu04/04/25 at 2001, Until Thu04/06/25 at 2043, Line Care, After every IV line use, For Line Patency: Peripheral IV = 5 mL; Midline or Central Line = 10 mL/lumen. If following IV push medication, administer flush at same rate as the IV push. Flush volume is determined by type of infusion therapy being given. For non-viscous solutions use: Peripheral IV = 5 mL Midline or Central Line = 10 mL/lumen For viscous solutions (i.e. blood components, parenteral nutrition, contrast media, or after obtaining blood sample) use: Peripheral IV = 10 mL Midline or Central Line = 20 mL/lumen 1432 (Given - Provider: Melly Sandy RN) 1305 (Given - Provider: Roro Arreola) technetium sestamibi (CARDIOLITE) injection 10 millicurie (COMPLETED) 10 millicurie, IntraVENous, IMG ONCE PRN, 1 dose, Starting on Paige 04/06/25 at 1048, Until Paige 04/06/25 at 1122, Other 1122 (Given - Provider: Janusz Choi) technetium sestamibi (CARDIOLITE) injection 30 millicurie (COMPLETED) 30 millicurie, IntraVENous, IMG ONCE PRN, 1 dose, Starting on Paige 04/06/25 at 1048, Until Paige 04/06/25 at 1122, Other 1122 (Given - Provider: Janusz Choi) verapamil (ISOPTIN) injection (CANCELED) PRN, Starting on Paige 04/06/25 at 1552, Until Paige 04/06/25 at 1604, Intra-procedure(Cath) 1552 (Given - Provider: Rui Marquez MD) No Frequency Medication Order 04/04/2025 04/05/2025 04/06/2025 albuterol sulfate HFA (PROVENTIL;VENTOLIN;PROAIR) 108 (90 Base) MCG/ACT inhaler 1 dose, Starting on Thu04/06/25 at 1411, Until Thu04/06/25 at 2043, Myra Slater: cabinet override, Myra Slater: cabinet override 1415 (Due) Linked Groups Order Group 1: methylPREDNISolone sodium succ (SOLU-MEDROL) 40 mg in sterile water 1 mL injectionJump to med 40 mg, IntraVENous, EVERY 6 HOURS, First dose on Thu04/05/25 at 0200, For 48 hours, Reconstitute each 40 mg vial with 1 mL of diluent. Followed by predniSONE (DELTASONE) tablet 40 mgJump to med 40 mg, Oral, DAILY, 3 doses, First dose on Thu04/07/25 at 0900, Last dose on Thu04/09/25 at 0900 Group 2: acetaminophen (TYLENOL) tablet 650 mgJump to med 650 mg, Oral, EVERY 6 HOURS PRN, Starting on Thu04/04/25 at 2001, Until Thu04/06/25 at 2043, Pain Mild (1-3), allowed for higher pain score per patient request, Fever, For temp greater than 100.4 F (38 C), Maximum dose of acetaminophen is 4000 mg from all sources in 24 hours. Or acetaminophen (TYLENOL) suppository 650 mgJump to med 650 mg, Rectal, EVERY 6 HOURS PRN, Starting on Thu04/04/25 at 2001, Until Thu04/06/25 at 2043, Pain Mild (1-3), allowed for higher pain score per patient request, Fever, For temp greater than 100.4 F (38 C), Administer if oral route cannot be used. Group 3: dextrose bolus 10% 125 mLJump to med 125 mL, IntraVENous, at 937.5 mL/hr, Administer over 8 Minutes, PRN, Other, Blood glucose 40 - 69 mg/dL and patient NOT ALERT or NPO, Starting on Thu04/04/25 at 2007, Repeat blood glucose in 15 minutes. If blood glucose remains LESS THAN 70 mg/dL, repeat treatment and recheck blood glucose in 15 minutes x 2. If using glycemic management system, dose as instructed per system. If blood glucose remains LESS THAN 70 mg/dL after 2 intravenous boluses start dextrose 10% at 100 mL/hour and notify provider. Or dextrose bolus 10% 250 mLJump to med 250 mL, IntraVENous, at 937.5 mL/hr, Administer over 16 Minutes, PRN, Other, Blood glucose LESS THAN 40 mg/dL and patient NOT ALERT or NPO, Starting on Thu04/04/25 at 2007, Repeat blood glucose in 15 minutes. If blood glucose remains LESS THAN 70 mg/dL, repeat treatment and recheck blood glucose in 15 minutes x 2. If using glycemic management system, dose as instructed per system. If blood glucose remains LESS THAN 70 mg/dL after 2 intravenous boluses start dextrose 10% at 100 mL/hour and notify provider. Group 4: ondansetron (ZOFRAN-ODT) disintegrating tablet 4 mgJump to med 4 mg, Oral, EVERY 8 HOURS PRN, Starting on Thu04/04/25 at 2001, Until Paige 04/06/25 at 2043, Nausea, Vomiting Or ondansetron (ZOFRAN) injection 4 mgJump to med 4 mg, IntraVENous, EVERY 6 HOURS PRN, Starting on Thu04/04/25 at 2001, Until Paige 04/06/25 at 2043, Nausea, Vomiting, Administer if oral route cannot be used. documented in this encounter Additional Health Concerns Infection Onset Date Last Indicated Resolved Time COVID-19 (Rule Out) 04/04/2025 04/05/2025 04/05/20 4:26 PM EDT Assessment Noted Time A Body Mass Index follow-up plan has been documented for the patient 05/13/2021 11:21 AM EDT documented as of this encounter
--- OUTSIDE RECORDS SUMMARY | 2025-04-06 11:10 | XMS_ITS | Encounter Summary ---
[facility] Address [address] [place] [address] Care Team Providers Care Oracle Consultant Name Role Phone Unavailable Primary Care Provider Unavailabl e Reason for Visit * Auth/Cert Specialty Diagnoses / Procedures Referred By Ancelmo farmer Referred To Contact Diagnoses Acute respiratory failure with hypoxia (HCC) Joey Cornejo MD [address] [place] [address] Phone: tel: fax: [facility] [place] [facility] [address] [place] [address] Referral ID Status Reason Start Date Expiration Date Visits Re quested Visits Authorized [id number] 1 1 Encounter Details Date Type Department Care Team (Latest Contact Info) Description 04/06/2025 11:10 AM EDT - 04/08/2025 11:59 PM EDT Hospital Encounter [facility] [address] [phone] Discharge Disposition: Home or Self Care Social History Tobacco Use Types Packs/Day Years Used Date Smoking Tobacco: Every Day Cigarettes 2 58.4 Started: 1967 Smokeless Tobacco: Former Chew Alcohol Use Standard Drinks/Week Comments Yes 10 (1 standard drink = 0.6 oz pu re alcohol) [facility] Utilities Answer Date Recorded In the past 12 months has [employer], gas, oil, or water [employer] threatened to shut off services in your [...] any time in the past 12 m [facility], were you homeless or living in a prison (including now)? No 04/05/2025 Food Insecurity Answer [...] on file documented as of this encounter Medications at Time of Discharge [...] for 5 days 10 tablet 04/06/2025 5 predniSONE (DELTASONE) 20 MG tablet Take 1 tablet by mouth 2 times daily for 5 days 10 tablet 04/06/2025 5 documented as of this encounter Plan of Treatment Not on file documented as of this encounter Procedures Procedure Name Priority Date/Time Associated Diagnosis Comments NM LEXISCAN STRESS TEST W/ MYOCARDIAL PERFUSION Routine 04/06/2025 12:24 PM EDT Shortness of breath documented in this encounter Visit Diagnoses Not on filedocumented in this encounter Administered Medications Inactive Administered Medications - up to 3 most recent administrations Medication Order MAR Action Action Date Dose Rate Site regadenoson (LEXISCAN) injection 0.4 mg 0.4 mg, IntraVENous, IMG ONCE PRN, 1 dose, Starting on Paige 5/15/25 at 1206, Until Paige 04/06/25 at 1210, Other Given 04/06/2025 12:10 PM EDT 0.4 mg documented in this encounter Additional Health Concerns Assessment Noted Time A Body Mass Index follow-up plan has been documented for the patient 05/13/2021 11:21 AM EDT documented as of this encounter
--- OUTSIDE RECORDS SUMMARY | 2025-04-06 15:32 | XMS_ITS | Encounter Summary ---
Author Organization [facility] Address [address] [place] [address] Care Team Providers Care Correctional Casework Specialist Name Role Phone Unavailable Primary Care Provider Unavailabl e Reason for Visit * Reason Comments Shortness of Breath Pt reports sob at hi s baseline d/t copd. Today used his inhalers with no relief and sob increased. * Auth/Cert Specialty Diagnoses / Procedures Referred By Contac t Referred To Contact Diagnoses Acute respiratory failure with hypoxia (HCC) Joey Cornejo MD [address] [facility] [place] [address] Phone: tel: fax: [facility] [address] [place] [address] Referral ID Status Reason Start Date Expiration Date Visits Re quested Visits Authorized [id number] 1 1 Encounter Details Date Type Department Care Team (Late st Contact Info) Description 04/06/2025 3:32 PM EDT - 04/06/2025 4:32 PM EDT Surgery [facility] Cardiac Cath/IR Lab [address] [place] [address] Rui Marquez MD [address] [place] [address] Left heart cath / coronary angiography Surgery Details Date/Time Status Location OR Service Patient Class Case Class Case Type Trauma Case? 04/06/2025 3:32 PM Posted [facility] CARDIAC CATH/IR LAB Preconstruction Manager Cardiology Inpatient Urgent No Panel 1 Procedure LRB Anes Op Region Wound Class Comments Left heart cath / coronary angiography N/A Surgeon Surgeon Role Service Panel Rui Marquez MD Primary Cardiology 1 documented in this encounter Social History Tobacco Use Types Packs/Day Years Used Date Smoking Tobacco: Every Day Cigarettes 2 58.4 Started: 1966 Smokeless Tobacco: Former Chew Tobacco Cessation:Ready to Q uit: Not Asked; Counseling Given: Not Answered Alcohol Use Standard Drinks/Week Comments Yes 10 (1 standard drink = 0.6 oz pu re alcohol) [facility] Utilities Answer Date Recorded In the past 12 months has th e electric, gas, oil, or water company threatened to shut off services in your [...] any time in the past [address] [facility], were you homeless or living in a [...] Sign Reading Time Taken Comments Blood Pressure 168/91 04/06/2025 4:30 PM EDT Pulse 75 04/06/2025 4:30 PM EDT Temperature 36.8 C (98.3 F) 04/06/2025 3:35 PM EDT Respiratory Rate 19 04/06/2025 4:30 PM EDT Oxygen Saturation 94% 04/06/2025 4:30 PM EDT Inhaled Oxygen Concentration - - Weight 73.2 kg (161 lb 6 oz) 04/06/2025 4:03 AM EDT Height 180.3 cm (5' 10.98 ) 04/05/2025 9:13 AM E DT Body Mass Index 22.52 04/05/2025 9:13 AM EDT documented in this encounter Functional Status documented as of this encounter Discharge Summaries * Afshan Santos, HAND ROLLER - SUPERVISOR INVENTORY MERCHANDISING - 04/06/2025 4:17 PM EDT Discharge Summary [...] started on glyburide 5 mg a day. healthcare educator was consulted and met with patient. Patient [...] Patient has been [facility] up at the community clinic for primary care follow-up. He does have a chronic Min catheter and does follow with urology and [place] [facility] Plan will be to discharge today labs [...] failure with hypoxia (HCC) 04/04/2025 COPD exacerbation (HCC) 04/04/2025 Uncontrolled hypertension 04/04/2025 New onset type 2 diabetes mellitus (HCC) 04/04/2025 Discharge Medications: Medication List START taking [...] Your Medications These medications were sent to [facility] [address] [place] [address] [address] [facility] - P [phone] - F [phone] [address] aspirin 81 MG chewable tablet atorvastatin 40 [...] applicable) JYOTI/ARB in CHF: NA Statin in LA: NA ASA in LA: NA Statin in CVA: NA Antiplatelet in CVA: NA Total time spent on discharge services: 40 minutes Including the following activities: Evaluation and Management of patient Discussion with patient and/or surrogate about current care plan Coordination with Case Management and/or Kennel Hand Coordination of care with Consultants (if applicable) Coordination of care with Receiving Facility Physician (if applicable) Completion of DME forms (if applicable) Preparation of Discharge Summary Preparation of Medication Reconciliation Preparation of Discharge Prescriptions Signed: GABRIELA Love CNP, MARQUITA OCHOAC 04/06/2025, 4:18 PM Please note that this chart was generated using voice recognition Consignd dictation software. Although every effort was made to ensure the accuracy of this automated detail maker and fitter, some errors in detail maker and fitter may have occurred. Cosigned by Joey Cornejo MD at 04/06/2025 7:29 PM EDT Associated attestation - Joey Cornejo MD - 04/06/2025 7:29 PM EDT Images from the original note were not included. [address], [place], [place], [address] Attestation Patient: Nic García Date of Admission: 04/04/2025 4:06 PM Hospital Day # 2 Date of Evaluation: 04/06/2025 I personally evaluated and examined the patient [id number] in conjunction with the PA/TOOL DESIGN ENGINEER and agree with the management and dispostition of the patient. Please see the PA/TOOL DESIGN ENGINEER's note for full details.My bain findings are: [...] care plan Coordination with Case Management and/or Kennel Hand Coordination of care with Consultants (if applicable) [...] this chart was generated using voice recognition AlertEnterpriseon dictation software. Although every effort was made to ensure the accuracy of this automated detail maker and fitter, some errors in detail maker and fitter may have occurred. Joey Cornejo MD 04/06/2025 [...] taking more than one drug. This includes [id number] medicine and herb or dietary supplements. Plan [...] by your doctor. Call Your Doctor at [phone] or go to the closest Emergency department [...] at most local grocery stores, pharmacies, and chain [employer]-stores. If you have any questions about your [...] daily for 5 days 10 tablet 04/06/2025 documented as of this encounter Progress Notes * Roro Arreola - 04/06/2025 6:40 PM EDT Discharge instructions reviewed, questions answered. Iv removed * Kay Thibodeaux RN - 04/06/2025 4:57 PM EDT All discharge instructions given. All questions answered at this time. All belongings returned. * Haley Lee PTA - 04/06/2025 3:41 PM EDT [facility] Inpatient/Observation/Outpatient Rehabilitation Date: 04/06/2025 Patient Name: Nic [...] does not require skilled services due to: Therapist/Carrier Packer will attempt to see this patient, at our earliest opportunity. Haley Lee PTA Date: 04/06/2025 Cosigned by Vonnie Pelayo, PT at 04/06/2025 4:07 PM EDT * Roslyn Lechuga, DENTAL MOLD MAKER, MAGNET VALVE ASSEMBLER - 04/06/2025 3:27 PM EDT Mels on wheels referral made for pt at his request through nursing. CHERELLE Rojas, AYSHA 04/06/2025 * Roslyn Rodríguez, OT - 04/06/2025 3:18 PM EDT Occupational Therapy Facility/Department: [facility] Daily Treatment Note NAME: Nic García : 1955 Date of Service: 04/06/2025 Discharge Recommendations: Home with assist PRN, Home with nursing secretary, Other (Comment) (Consider meals on wheels or [...] Recommendations: Home with assist PRN;Home with nursing secretary;Other (Comment) (Consider meals on wheels or home [...] understanding to safety as relates to ADL's. Half-Way Goals Time Frame for General Operations Agent Goals : 2 weeks Half-Way Goal 1: Pt. will return to DRIER HELPER ADL status. Patient Goals Patient goals : [...] respiratory, inhaler was not found. Myra slater, field staff manager was notified. * Roro Arreola - 04/06/2025 1:00 PM EDT Pt returned from stress test stating that he was not going to wear telemetry because he was leaving. Pt stated he had been here long enough and had things to do. Patient signed ama paper. * Stephan Manriquez RCP - 04/06/2025 11:46 AM EDT RESPIRATORY ASSESSMENT PROTOCOL Patient Name: [facility] Room#: 0322/0322-01 : 1955 Admitting diagnosis: Shortness [...] Chemistry: No results found for: PHART , UKG5GEJ , PO2ART , O5EHLMCA , YCA3YCL , PBEA , NBEA VITALS Pulse: 60 [...] 04/06/2025 9:25 AM EDT Physical Therapy Facility/Department: [facility] Daily Treatment Note [...] LEs. Gait wiht WW CGA for safety [id number], no noted LOB, forwardflexed posture with short [...] Time Individual Concurrent Group Co-treatment Time In 0833 Time Out 0857 Minutes 24 Haley Lee PTA Cosigned by Vonnie Pelayo PT at 04/06/2025 12:27 PM EDT * Roro Arreola - 04/06/2025 7:35 AM EDT Pt resting in chair, denies needs at this time. Vitals and assessment completed. Call light in reach, bed alarm on. Pt agitated after being informed he couldn't have coffee due to stress test being ordered * Afshan Santos, GABRIELA - SUPERVISOR INVENTORY MERCHANDISING - 04/06/2025 7:10 AM EDT Progress Note [...] 9.4 Last 3 Blood Glucose: Recent Labs 04/04/25162404/05/252704/05/25 0701 04/06/25 0555 GLUCOSE 563* 282 203* 346* Comprehensive Metabolic Profile: Recent Labs 04/04/25162404/05/252704/05/25 0701 04/06/25 0555 NA 133* -- 137 134* K [...] Toprol-XL Nutrition status: at risk for malnutrition Shaker Tender consult initiated I/O Daily weight Monitor Daily [...] pitting +2 pitting) (04/05/25734) Acute Illness - Tire Shop Mechanic Strength: Not Performed (04/05/25735) Acute Illness - [...] Full Code Disposition: Discharge plan is pending [facility] Advanced Care Planning documentation: [x] I have [...] the patient's medical record. [DOES NOT SATISFY MIPS PERFORMANCE] GABRIELA Love CNP , MANOLO OCHOA-C Hospitalist Medicine 04/06/2025, 7:10 AM Cosigned by Joey Cornejo MD at 04/06/2025 7:28 PM EDT Associated attestation - Joey Cornejo MD - 04/06/2025 7:28 PM EDT Images from the original note were not included. [address], [place], [place], [address] Attestation Patient: Nic García Date of Admission: 04/04/2025 4:06 PM Hospital Day # 2 Date of Evaluation: 04/06/2025 I personally evaluated and examined the patient [id number] in conjunction with the PA/TOOL DESIGN ENGINEER and agree with the management and dispostition of the patient. Please see the PA/TOOL DESIGN ENGINEER's note for full details.My bain findings are: [...] Intake/Output Summary (Last 24 hours) at 04/06/2025 192 Last data filed at 04/06/2025 1604 Gross [...] DATA: Complete Blood Count: Recent Labs 04/04/25 16204/05/25 0701 04/06/25 0555 WBC 10.2 10.6 13.8* [...] heart failure (HCC) Coronary artery disease involving caddo coronary artery of caddo heart without angina pectoris Hypertensive urgency Abnormal stress test Hyperlipidemia LDL goal <70 Resolved Problems: * No resolved hospital problems. * PLAN: I agree with the plan as outlined in the TOOL DESIGN ENGINEER/PA's note Disposition: Discharge plan is pending Please note that this chart was generated using voice recognition AlertEnterpriseon dictation software. Although every effort was made to ensure the accuracy of this automated detail maker and fitter, some errors in detail maker and fitter may have occurred. Joey Cornejo MD 04/06/2025 7:27 PM * Amisha Gutierrez RN - 04/05/2025 6:36 PM EDT Anthropology And Archeology Instructor at bedside to complete evening assessment. Upon entry to room, pt in chair, respirations unlabored while on RA. Vitals obtained and assessment completed, see flow sheet for details. Pt denies needs from display card writer at this time. Call light in [...] this hospitalization. [place]. Has a cat Stephanie for companionship. Uses [...] Patient has no PCP at present. Chooses [facility] from list of providers. He does have medical insurance and reports no difficulty with affording his medications at this time. Discharge plan is home when stable. He is a 'Full Code' status and has no Advanced Directives currently on file. Discussed importance of identifying medical decision makers and he responds I just don't know who that might be. MAGNET VALVE ASSEMBLER to remain involved and assist with discharge [...] 04/05/2025 1:31 PM EDT Physical Therapy Facility/Department: [facility] Physical Therapy Initial [...] Level of Assist for Transfers: Independent Active Family Therapist: Yes Mode of Transportation: Truck Occupation: Retired [...] at 04/05/2025 5:16 PM EDT * Arabella Juarez, OT - 04/05/2025 10:40 AM EDT Occupational Therapy Facility/Department: [facility] Occupational Therapy Initial [...] Level of Assist for Transfers: Independent Active Family Therapist: Yes Mode of Transportation: Truck Occupation: Retired [...] understanding to safety as relates to ADL's. Half-Way Goals Time Frame for Half-Way Goals : 2 weeks Half-Way Goal 1: Pt. will return to DRIER HELPER ADL status. Patient Goals Patient goals : Get stronger Therapy Time Individual Concurrent Group Co-treatment Time In 1020 Time Out 1038 Minutes 18 Timed Code Treatment Minutes: 0 Minutes Arabelal Juarez OT Cosigned by Joey Cornejo MD [...] pitting edema) Extremities (+1 pitting +2 pitting) Tire Shop Mechanic Strength: Not Performed Nutrition Assessment: Altered nutrition-related [...] Measures: Height: 180.3 cm (5' 10.98 ) [place] Body Weight (IBW): 172 lbs (78 kg) [...] Used for Energy Requirements: Current Energy (kcal/day): 9009-7902 (25-28kcal/kg) Weight Used for Protein Requirements: [place] Protein (g/day): 94-109 (1.2-1.4g/kg) Method Used for Fluid Requirements: 1 ml/kcal Fluid (ml/day): 9035-3571 Nutrition Diagnosis: Altered nutrition-related lab values related [...] Planning: Continue current diet Angelique Whitfield Contact: [phone], LD at 04/05/2025 8:22 AM EDT * [...] Diagnostic Data: Complete Blood Count: Recent Labs 04/04/25 1625 04/05/25 0701 WBC 10.2 10.6 RBC 4.83 4.77 HGB 14.6 14.6 HCT 42.3 41.7 MCV 87.6 87.4 MCH 30.2 30.6 MCHC 34.5 35.0* RDW 13.4 13.4 PLT 233 227 MPV 9.4 9.3 Last 3 Blood Glucose: Recent Labs 04/04/25 1625 04/05/25 0028 04/05/25 0701 GLUCOSE 563* 282 203* Comprehensive Metabolic Profile: Recent Labs 04/04/25 1625 04/05/25 0028 04/05/25 [...] bedtime Hemoglobin A1c pending Diabetic diet Consult healthcare educator Imaging: no further imaging studies ordered today Medications: Continue metformin-upon chart review it appears patient was on metformin several years ago. Humalog sliding scale Hypoglycemia protocol Hypertension Condition is improving Treatment plan: Appreciate Cardiology Monitor labs Imaging: Echo ordered Medications: Continue losartan Weaned off Cardene Hydralazine as needed Nutrition status: at risk for malnutrition Shaker Tender consult initiated I/O Daily weight Monitor Daily [...] pitting +2 pitting) (04/05/25734) Acute Illness - Tire Shop Mechanic Strength: Not Performed (04/05/25735) Acute Illness - Malnutrition Score: 1 (04/05/25735) Malnutrition Status: At risk for malnutrition (04/05/25735) I agree with the dietitian's malnutrition assessment. Medical Nutrition Therapy: continue current nutrition therapy, oral diet, and oral supplements T Hospital Prophylaxis: DVT: Lovenox Stress Ulcer: na Disposition: Shared decision making: All test results, treatment options and disposition options were discussed with the patient today Social determinants of health that may impact management: none Code status: Full Code Disposition: Discharge plan is pending [facility] Advanced Care Planning documentation: [x] I have [...] the patient's medical record. [DOES NOT SATISFY MIPS PERFORMANCE] Afshan Santos APRN - [place] , MANOLO OCHOA-C Hospitalist Medicine 04/05/2025, 8:34 AM Cosigned by Joey Cornejo MD at 04/05/2025 12:53 PM EDT Associated attestation - Joey Cornejo MD - 04/05/2025 12:53 PM EDT Images from the original note were not included. [address] , [place], [place], [address] Attestation Patient: Nic García Date of Admission: 04/04/2025 4:06 PM Hospital Day # 1 Date of Evaluation: 04/05/2025 I personally evaluated and examined the patient [id number] in conjunction with the PA/TOOL DESIGN ENGINEER and agree with the management and dispostition of the patient. Please see the PA/TOOL DESIGN ENGINEER's note for full details.My bain findings are: [...] with the plan as outlined in the TOOL DESIGN ENGINEER/PA's note Disposition: Discharge plan is pending Please note that this chart was generated using voice recognition AlertEnterpriseon dictation software. Although every effort was made to ensure the accuracy of this automated detail maker and fitter, some errors in detail maker and fitter may have occurred. Joey Cornejo MD 04/05/2025 12:52 PM * Mele Knowles RN - 04/05/2025 2:48 AM EDT Patient admitted to [facility] room 322- ambulating x1 assist from ER [...] chronic per patient. No additional requests from display card writer- call light placed within reach, bed in lowest position and alarm engaged to promote patient safety. Anthropology And Archeology Instructor encourage s use of call light for assistance. Plan of care on going. documented in this encounter Plan of Treatment Scheduled Orders Name Type Priority Associated Diagnoses Orde r Schedule Basic Metabolic Panel Lab Routine COPD with acute exacerbation (HCC) Idiopathic cardiomyopathy (HCC) New onset type 2 diabetes mellitus (HCC) Coronary artery disease involving caddo coronary artery of caddo heart without angina pectoris Expected: 04/13/2025, Expires: 04/06/2026 CBC with Auto Differential Lab Routine COPD with acute exacerbation (HCC) Idiopathic cardiomyopathy (HCC) New onset type 2 diabetes mellitus (HCC) Coronary artery disease involving caddo coronary artery of caddo heart without angina pectoris Expected: 04/13/2025, Expires: [...] Glucose, Whole Blood (04/06/2025 5:16 PM EDT) [facility] POC Glucose 316(H) 74 - 100 mg/dL 04/06/2025 5:16 PM EDT [facility] 04/06/2025 5:16 PM EDT 04/06/2025 5:24 PM EDT Joey Cornejo MD CHEMISTRY ORDERABLES Final Resul t [facility] [address] [place] [address], [facility] [phone] * LEFT HEART CATH / CORONARY ANGIOGRAPHY (04/06/2025 4:04 PM EDT) [facility] Body Surface Area 1.91 m2 [facility] HEMO Anatomical Region Laterality Modality X-Ray Angiograph y Narrative 04/06/2025 4:58 PM EDT - Coronary Angiography Brief Post Operative Note: Mild coronary artery disease without any significant focal stenosis. Normal left ventricular end diastolic pressure (LVEDP). involving a 50% stenosis in a very large 1st septal automatic beam warper tender of the LAD. Normal left ventricular end [...] W/ MYOCARDIAL PERFUSION (04/06/2025 12:24 PM EDT) [facility] Stress Target HR 150 bpm [facility] CV [...] transient ischemic dilation (TID). us Afshan Santos HAND ROLLER - SUPERVISOR INVENTORY MERCHANDISING CV STRESS ORD ERABLES Final Result * (ABNORMAL) Glucose, Whole Blood (04/06/2025 11:17 AM EDT) POC Glucose 352(H) 74 - 100 mg/dL 04/06/2025 11:17 AM EDT [facility] 04/06/2025 11:1 7 AM EDT 04/06/2025 11:24 AM EDT us Joey Cornejo MD CHEMISTRY ORDERABLES Final Resul t [facility] [address] [phone] * (ABNORMAL) Glucose, Whole Blood (04/06/2025 6:48 AM EDT) [facility] POC Glucose 308(H) 74 - 100 mg/dL 04/06/2025 6:48 AM EDT [facility] 04/06/2025 6:48 AM EDT 04/06/2025 7:37 AM EDT us Joey Cornejo MD CHEMISTRY ORDERABLES Final Resul t Performing Organization Address [facility]/ZIP Co de Phone Number [facility] [address] [place] [address] * EKG Rhythm Strip (04/06/2025 6:00 AM EDT) 04/06/2025 6:00 AM EDT Narrative [facility] - 04/06/2025 6:08 AM EDT us Unknown Provider Result ECG ORDERABLES Final Re sult Performing Organization Address [facility] de Phone Number [facility] [address] [place] [address] * Lipid Panel (04/06/2025 5:55 AM EDT) [facility] Cholesterol, Total 121 0 - 199 mg/dL 04/06/2025 5:55 AM EDT [facility] Comment: Cholesterol Guidelines: <200 Desirable 200-240 Borderline >240 Undesirable HDL 68 >40 mg/dL 04/06/2025 5:55 AM EDT [facility] Comment: HDL Guidelines: <40 Undesirable 40-59 Borderline >59 Desirable LDL Cholesterol 42 0 - 100 mg/dL 04/06/2025 5:55 AM EDT [facility] Comment: LDL Guidelines: <100 Desirable 100-129 Near to/above Desirable 130-159 Borderline >159 Undesirable Direct (measured) LDL and calculated LDL are not interchangeable tests. Chol/HDL Ratio 1.8 <5.0 04/06/2025 5:55 AM EDT [facility] Triglycerides 53 <150 mg/dL 04/06/2025 5:55 AM EDT [facility] Comment: Triglyceride Guidelines: <150 Desirable 150-199 Borderline 200-499 High >499 Very high Based on AHA Guidelines for fasting triglyceride, August 2012. VLDL 11 1 - 30 mg/dL 04/06/2025 5:55 AM EDT [facility] Blood BLOOD SPECIMEN / Unknown 04/06/2025 5:55 AM EDT 04/06/2025 12:02 PM EDT Afshan Santos HAND ROLLER - SUPERVISOR INVENTORY MERCHANDISING CHEMISTRY ORD ERABLES Final Result Performing Organization Address [facility]/ZIP Co de Phone Number [facility] [address] [place] [address], [facility] [phone] [facility] [employer] [facility] [place] [address], [facility] [phone] * (ABNORMAL) Troponin (04/06/2025 5:55 AM EDT) Troponin, High Sensitivity 37(H) 0 - 22 ng/L 04/06/2025 5:55 AM EDT [facility] Comment:High Sensitivity Tro ponin values cannot be compared with other Troponin methodologies. Blood BLOOD SPECIMEN / Unknown 04/06/2025 5:55 AM EDT 04/06/2025 12:02 PM EDT Afshan Santos HAND ROLLER - SUPERVISOR INVENTORY MERCHANDISING CHEMISTRY ORD ERABLES Final Result Performing Organization Address [facility] Co de Phone Number [facility] [address] [place] [address], [facility] [phone] * (ABNORMAL) Brain Natriuretic Peptide (04/06/2025 5:55 AM EDT) NT Pro-BNP 780(H) 0 - 125 pg/mL 04/06/2025 5:55 AM EDT [facility] Blood BLOOD SPECIMEN / Unknown 04/06/2025 5:55 AM EDT 04/06/2025 7:15 AM EDT Afshan Santos HAND ROLLER - SUPERVISOR INVENTORY MERCHANDISING CHEMISTRY ORD ERABLES Final Result Performing Organization Address City/[facility] Co de Phone Number [facility] [address] [phone] * (ABNORMAL) CBC with Auto Differential (04/06/2025 5:55 AM EDT) WBC 13.8(H) 3.5 - 11.3 k/uL 04/06/2025 5:55 AM EDT [facility] RBC 4.60 4.21 - 5.77 m/uL 04/06/2025 5:55 AM EDT [facility] Hemoglobin 13.8 13.0 - 17.0 g/dL 04/06/2025 5:55 AM EDT [facility] Hematocrit 40.2(L) 40.7 - 50.3 % 04/06/2025 5:55 AM [facility] MCV 87.4 82.6 - 102.9 fL 04/06/2025 5:55 AM EDT [facility] MCH 30.0 25.2 - 33.5 pg 04/06/2025 5:55 AM [facility] MCHC 34.3 28.4 - 34.8 g/dL 04/06/2025 5:55 [facility] RDW 13.6 11.8 - 14.4 % 04/06/2025 5:55 AM [facility] Platelets 239 138 - 453 k/uL 04/06/2025 5:55 AM EDT [facility] MPV 9.4 8.1 - 13.5 fL 04/06/2025 5:55 AM [facility] NRBC Automated 0.0 0.0 per 100 WBC 04/06/2025 5:55 [facility] Neutrophils % 90(H) 36 - 65 % 04/06/2025 5:55 [facility] Lymphocytes % 7(L) 24 - 43 % 04/06/2025 5:55 [facility] Monocytes % 3 3 - 12 % 04/06/2025 5:55 AM EDT [facility] Eosinophils % 0(L) 1 - 4 % 04/06/2025 5:55 AM EDT [facility] Basophils % 0 0 - 2 % 04/06/2025 5:55 AM EDT [facility] Immature Granulocytes % 0 0 % 04/06/2025 5:55 AM EDT [facility] Neutrophils Absolute 12.39(H) 1.50 - 8.10 k/uL 04/06/2025 5:55 AM EDT [facility] Lymphocytes Absolute 0.96(L) 1.10 - 3.70 k/uL 04/06/2025 5:55 AM EDT [facility] Monocytes Absolute 0.36 0.10 - 1.20 k/uL 04/06[facility]2025 5:[facility] Eosinophils Absolute 0.05 0.00 - 0.44 k/uL 04/06/2025 5:55 [facility] Basophils Absolute <0.03 0.00 - 0.20 k/uL 04/06/2025 5:55 [facility] Immature Granulocytes Absolute 0.05 0.00 - 0.30 k/uL 04/06/2025 5:55 AM [facility] Blood BLOOD SPECIMEN / Unknown 04/06/2025 5:55 AM EDT 04/06/2025 6:11 AM EDT us Joey Cornejo MD HEMATOLOGY ORDERABLES Final Resu lt [facility] [address] [phone] * (ABNORMAL) Comprehensive Metabolic Panel w/ Reflex to MG (04/06/2025 5:55 AM EDT) Sodium 134(L) 136 - 145 mmol/L 04/06/2025 5:55 AM EDT [facility] Potassium 3.9 3.7 - 5.3 mmol/L 04/06/2025 5:55 AM [facility] Chloride 96(L) 98 - 107 mmol/L 04/06/2025 5:55 AM [facility] CO2 27 20 - 31 mmol/L 04/06/2025 5:55 AM [facility] Anion Gap 11 9 - 16 mmol/L 04/06/2025 5:55 AM [facility] Glucose 346(H) 74 - 99 mg/dL 04/06/2025 5:55 AM [facility] BUN 21 8 - 23 mg/dL 04/06/2025 5:55 AM [facility] Creatinine 0.8 0.70 - 1.20 mg/dL 04/06/2025 5:55 AM [facility] Est, Glom Filt Rate >90 >60 mL/min/1.7 3m2 04/06/2025 5:55 AM [facility] Comment: These results are not intended [...] 5:55 AM [facility] Calcium 8.5(L) 8.6 - 10.4 mg/dL 04/06/2025 5:55 AM [facility] Total Protein 5.4(L) 6.6 - 8.7 g/dL 04/06/2025 5:55 AM [facility] Albumin 3.7 3.5 - 5.2 g/dL 04/06/2025 5:55 AM [facility] Albumin/Globulin Ratio 2.1 1.0 - 2.5 04/06/2025 5:55 AM [facility] Total Bilirubin 0.3 0.00 - 1.20 mg/dL 04/06/2025 5:55 AM EDT [facility] Alkaline Phosphatase 71 40 - 129 U/L 04/06/2025 5:55 AM EDT [facility] ALT 35 10 - 50 U/L 04/06/2025 5:55 AM EDT [facility] AST 24 10 - 50 U/L 04/06/2025 5:55 AM EDT [facility] Blood BLOOD SPECIMEN / Unknown 04/06/2025 5:55 AM EDT 04/06/2025 6:11 AM EDT us Joey Cornejo MD CHEMISTRY ORDERABLES Final Resul t Performing Organization Address City/[facility]/ZIP Co de Phone Number [facility] [address] [place] [address] * C-Reactive Protein (04/06/2025 5:55 AM EDT) CRP <3.0 0.0 - 5.0 mg/L 04/06/2025 5:55 AM EDT [facility] Blood BLOOD SPECIMEN / Unknown 04/06/2025 5:55 AM EDT 04/06/2025 6:11 AM EDT us Joey Cornejo MD CHEMISTRY ORDERABLES Final Resul t Performing Organization Address [facility]/ZIP Co de Phone Number [facility] [address] [place] [address] * Procalcitonin (04/06/2025 5:55 AM EDT) Procalcitonin 0.04 0.00 - 0.09 ng/mL 04/06/2025 5:55 AM EDT [facility] Comment: Suspected Sepsis: <0.50 ng/mL Low likelihood [...] entered into the Change in Procalcitonin Calculator ([email or web address]-bco-anbqpcgxez.PollitoIngles) to determine the patient's Mortality Risk Prognosis [...] ORDERABLES Final Resul t Performing Organization Address City/[facility]/ZIP Co de Phone Number [facility] [address] [place] [address], [facility] [phone] [place] [address], [facility] [phone] * (ABNORMAL) Glucose, Whole Blood (04/05/2025 8:11 PM EDT) POC Glucose 253(H) 74 - 100 mg/dL 04/05/2025 8:11 PM EDT [facility] 04/05/2025 8:11 PM EDT 04/05/2025 8:18 PM EDT Joey Cornejo MD CHEMISTRY ORDERABLES Final Resul t [facility] [address] [place] [address], [facility] [phone] * (ABNORMAL) Glucose, Whole Blood (04/05/2025 3:56 PM EDT) POC Glucose 316(H) 74 - 100 mg/dL 04/05/2025 3:56 PM EDT [facility] 04/05/2025 3:56 PM EDT 04/05/2025 4:03 PM EDT us Joey Cornejo MD CHEMISTRY ORDERABLES Final Resul t Performing Organization Address [facility] Co de Phone Number [facility] [address] [place] [address] * EKG Rhythm Strip (04/05/2025 2:59 PM EDT) 04/05/2025 2:59 PM EDT Narrative [facility] - 04/05/2025 3:38 PM EDT us Unknown Provider Result ECG ORDERABLES Final Re sult Performing Organization Address [facility] de Phone Number [facility] [address] [place] [address] * (ABNORMAL) Glucose, Whole Blood (04/05/2025 10:57 AM EDT) POC Glucose 289(H) 74 - 100 mg/dL 04/05/2025 10:57 AM EDT [facility] 04/05/2025 10:5 7 AM EDT 04/05/2025 11:03 AM EDT us Joey Cornejo MD CHEMISTRY ORDERABLES Final Resul t Performing Organization Address [facility] Co de Phone Number [facility] [address] [place] [address] * (ABNORMAL) ECHO (TTE) COMPLETE (04/05/2025 10:00 [...] CV CPACS LVOT Mean Gradient 2 mmHg BS CV CPACS LVOT VTI 17.9 cm BS CV CPACS LVOT Peak Velocity 0.9 m/s BS CV CPACS LVOT Peak Gradient 3 mmHg BS CV CPACS LVPWd 1.1(A) 0.6 - 1.0 cm BS CV CPACS LV E' Lateral Velocity 7.29 cm/s BS CV CPACS LV Ejection Fraction A2C 43 % BS CV CPACS LV Ejection Fraction A4C 42 % BS CV CPACS EF BP 43(A) 55 - 100 % BS CV CPACS LVOT Area 3.1 cm2 BS CV CPACS LVOT SV 56.2 ml BS CV CPACS LA Minor [place] 5.2 cm BS CV CPACS LA Major [place] 5.3 cm BS CV CPACS LA Area 2C 21.8 cm2 BS CV CPACS LA Area 4C 21.8 cm2 BS CV CPACS LA Volume MOD A2C 76(A) [...] CV CPACS AV Peak Velocity 1.7 m/s BS CV CPACS AV Peak Gradient 11 mmHg BS CV CPACS AV Area by VTI 1.7 cm2 BS CV CPACS AV Area by Peak Velocity 1.6 cm2 BS CV CPACS Aortic Root 1.9 cm BS CV CPACS Sinotubular Junction 2.1 cm BS CV CPACS Aortic Sinus Valsalva 3.4 cm [...] CV CPACS TR Max Velocity 1.81 m/s [facility] CV CPACS TR Peak Gradient 13 mmHg [...] CPACS Aortic Sinus Valsalva Index 1.77 cm/m2 [facility] CV CPACS AV Velocity Ratio 0.53 [facility] CV CPACS LVOT:AV VTI Index 0.54 BS CV CPACS JANIS/BSA VTI 0.9 cm2/m2 [facility] CV CPACS JANIS/BSA Peak Velocity 0.8 cm2/m2 [facility] CV CPACS Est. RA Pressure 3 mmHg [...] 3.5 - 11.3 k/uL 04/05/2025 7:01 AM EDT [facility] RBC 4.77 4.21 - 5.77 m/uL 04/05/2025 7:01 AM [facility] Hemoglobin 14.6 13.0 - 17.0 g/dL 04/05/2025 7:01 AM [facility] Hematocrit 41.7 40.7 - 50.3 % 04/05/2025 7:01 AM [facility] MCV 87.4 82.6 - 102.9 fL 04/05/2025 7:01 AM [facility] MCH 30.6 25.2 - 33.5 pg 04/05/2025 7:01 AM [facility] MCHC 35.0(H) 28.4 - 34.8 g/dL 04/05/2025 7:01 AM [facility] RDW 13.4 11.8 - 14.4 % 04/05/2025 7:01 AM [facility] Platelets 227 138 - 453 k/uL 04/05/2025 7:01 AM [facility] MPV 9.3 8.1 - 13.5 fL 04/05/2025 7:01 AM [facility] NRBC Automated 0.0 0.0 per 100 WBC 04/05/2025 7:01 AM [facility] Neutrophils % 91(H) 36 - 65 % 04/05/2025 7:01 AM [facility] Lymphocytes % 8(L) 24 - 43 % 04/05/2025 7:01 AM [facility] Monocytes % 1(L) 3 - 12 % 04/05/2025 7:01 AM [facility] Eosinophils % 0(L) 1 - 4 % 04/05/2025 7:01 AM [facility] Basophils % 0 0 - 2 % 04/05/2025 7:01 AM [facility] Immature Granulocytes % 0 0 % 04/05/2025 7:01 AM [facility] Neutrophils Absolute 9.53(H) 1.50 - 8.10 k/uL 04/05/2025 7:01 AM [facility] Lymphocytes Absolute 0.89(L) 1.10 - 3.70 k/uL 04/05/2025 7:01 AM EDT [facility] Monocytes Absolute 0.10 0.10 - 1.20 k/uL 04/05/2025 7:01 AM EDT [facility] Eosinophils Absolute <0.03 0.00 - 0.44 k/uL 04/05/2025 7:01 AM EDT [facility] Basophils Absolute <0.03 0.00 - 0.20 k/uL 04/05/2025 7:01 AM EDT [facility] Immature Granulocytes Absolute 0.03 0.00 - 0.30 k/uL 04/05/2025 7:01 AM EDT [facility] Blood BLOOD SPECIMEN / Unknown 04/05/2025 7:01 AM EDT 04/05/2025 7:04 AM EDT us Joey Cornejo MD HEMATOLOGY ORDERABLES Final Resu lt Performing Organization Address City/[facility]/ZIP Co de Phone Number [facility] [address] [place] [address] * (ABNORMAL) Brain Natriuretic Peptide (04/05/2025 7:01 AM EDT) NT Pro-BNP 1,715(H) 0 - 125 pg/mL 04/05/2025 7:01 AM EDT [facility] Blood BLOOD SPECIMEN / Unknown 04/05/2025 7:01 AM EDT 04/05/2025 7:04 AM EDT us Joey Cornjeo MD CHEMISTRY ORDERABLES Final Resul t Performing Organization Address City/[facility]/ZIP Co de Phone Number [facility] [address] [place] [address] * (ABNORMAL) Comprehensive Metabolic Panel w/ Reflex to MG (04/05/2025 7:01 AM EDT) Sodium 137 136 - 145 mmol/L 04/05/2025 7:01 AM [facility] Potassium 3.7 3.7 - 5.3 mmol/L 04/05/2025 7:01 AM [facility] Chloride 98 98 - 107 mmol/L 04/05/2025 7:01 AM [facility] CO2 27 20 - 31 mmol/L 04/05/2025 7:01 AM [facility] Anion Gap 12 9 - 16 mmol/L 04/05/2025 7:01 AM [facility] Glucose 203(H) 74 - 99 mg/dL 04/05/2025 7:01 AM [facility] BUN 12 8 - 23 mg/dL 04/05/2025 7:01 AM [facility] Creatinine 0.6(L) 0.70 - 1.20 mg/dL 04/05/2025 7:01 AM [facility] Est, Glom Filt Rate >90 >60 mL/min/1.7 3m2 04/05/2025 7:01 AM [facility] Comment: These results are not intended [...] 7:01 AM [facility] Calcium 8.7 8.6 - 10.4 mg/dL 04/05/2025 7:01 AM [facility] Total Protein 5.9(L) 6.6 - 8.7 g/dL 04/05/2025 7:01 AM [facility] Albumin 4.0 3.5 - 5.2 g/dL 04/05/2025 7:01 AM [facility] Albumin/Globulin Ratio 2.1 1.0 - 2.5 04/05/2025 7:01 AM EDT [facility] Total Bilirubin 0.4 0.00 - 1.20 mg/dL 04/05/2025 7:01 AM EDT [facility] Alkaline Phosphatase 81 40 - 129 U/L 04/05/2025 7:01 AM EDT [facility] ALT 37 10 - 50 U/L 04/05/2025 7:01 AM EDT [facility] AST 25 10 - 50 U/L 04/05/2025 7:01 AM EDT [facility] Blood BLOOD SPECIMEN / Unknown 04/05/2025 7:01 AM EDT 04/05/2025 7:04 AM EDT us Joey Cornejo MD CHEMISTRY ORDERABLES Final Resul t Performing Organization Address City/[facility]/ZIP Co de Phone Number [facility] [address] [place] [address] * C-Reactive Protein (04/05/2025 7:01 AM EDT) CRP <3.0 0.0 - 5.0 mg/L 04/05/2025 7:01 AM EDT [facility] Blood BLOOD SPECIMEN / Unknown 04/05/2025 7:01 AM EDT 04/05/2025 7:04 AM EDT us Joey Cornejo MD CHEMISTRY ORDERABLES Final Resul t [facility] [address] [place] [address] * Procalcitonin (04/05/2025 7:01 AM EDT) Procalcitonin 0.06 0.00 - 0.09 ng/mL 04/05/2025 7:01 AM EDT [facility] [employer] Comment: Suspected Sepsis: <0.50 ng/mL Low likelihood [...] entered into the Change in Procalcitonin Calculator (www.aueijv-aaz-zadsucfgpf.PollitoIngles) to determine the patient's Mortality Risk Prognosis [...] ORDERABLES Final Resul t Performing Organization Address [facility]/ZIP Co de Phone Number [facility] [address] [place] [address], [facility] [phone] [place] [address], [facility] [phone] * (ABNORMAL) Glucose, Whole Blood (04/05/2025 6:58 AM EDT) [facility] POC Glucose 194(H) 74 - 100 mg/dL 04/05/2025 6:58 AM EDT [facility] 04/05/2025 6:58 AM EDT 04/05/2025 7:04 AM EDT Joey Cornejo MD CHEMISTRY ORDERABLES Final Resul t Performing Organization Address [facility]/ZIP Co de Phone Number [facility] [address] [place] [address], [facility] [phone] * EKG Rhythm Strip (04/05/2025 6:13 AM EDT) 04/05/2025 6:13 AM EDT Narrative [facility] - 04/05/2025 6:36 AM EDT us Unknown Provider Result ECG ORDERABLES Final Re sult Performing Organization Address [facility]/ZIP Co de Phone Number [facility] [address] [place] [address] * POCT Glucose (04/05/2025 12:28 AM EDT) Glucose 282 mg/dL QC OK? yes BLOOD SPECIMEN / Unknown 04/05/2025 12:28 AM EDT us Joey Cornejo MD POINT OF CARE TEST ORDERABLES Fi nal Result * (ABNORMAL) Glucose, Whole Blood (04/05/2025 12:17 AM EDT) POC Glucose 282(H) 74 - 100 mg/dL 04/05/2025 12:17 AM EDT [facility] 04/05/2025 12:1 7 AM EDT 04/05/2025 12:24 AM EDT us Joey Cornejo MD CHEMISTRY ORDERABLES Final Resul t Performing Organization Address [facility]/ZIP Co de Phone Number [facility] [address] [place] [address] * Respiratory Panel, Molecular, with COVID-19 (Restricted: peds pts or suitable admitted adults) (04/05/2025 12:08 AM EDT) Specimen Description .NASOPHARYN GEAL SWAB 04/05/2025 12:08 AM EDT [facility] Adenovirus PCR Not Detected Not Detected 04/05/2025 12:08 AM EDT [facility] Coronavirus 229E PCR Not Detected Not Detected 04/05/2025 12:08 AM EDT [facility] Coronavirus HKU1 PCR Not Detected Not Detected 04/05/2025 12:08 AM EDT [facility] Coronavirus NL63 PCR Not Detected Not Detected 04/05/2025 12:08 AM EDT [facility] Coronavirus OC43 PCR Not Detected Not Detected 04/05/2025 12:08 AM EDT [facility] SARS-CoV-2, PCR Not Detected Not Detected 04/05/2025 12:08 AM EDT [facility] Human Metapneumovirus PCR Not Detected Not Detected 04/05/2025 12:08 AM EDT [facility] Rhino/Enterovirus PCR Not Detected Not Detected 04/05/2025 12:08 AM EDT [facility] Influenza A by PCR Not Detected Not Detected 04/05/2025 12:08 AM EDT [facility] Influenza B by PCR Not Detected Not Detected 04/05/2025 12:08 AM EDT [facility] Parainfluenza 1 PCR Not Detected Not Detected 04/05/2025 12:08 AM EDT [facility] Parainfluenza 2 PCR Not Detected Not Detected 04/05/2025 12:08 AM EDT [facility] Parainfluenza 3 PCR Not Detected Not Detected 04/05/2025 12:08 AM EDT [facility] Parainfluenza 4 PCR Not Detected Not Detected 04/05/2025 12:08 AM EDT [facility] Resp Syncytial Virus PCR Not Detected Not Detected 04/05/2025 12:08 AM EDT [facility] Bordetella parapertussis by PCR Not Detected Not Detected 04/05/2025 12:08 AM EDT [facility] B Pertussis by PCR Not Detected Not Detected 04/05/2025 12:08 AM EDT [facility] Chlamydia pneumoniae By PCR Not Detected Not Detected 04/05/2025 12:08 AM EDT [facility] Mycoplasma pneumo by PCR Not Detected Not Detected 04/05/2025 12:08 AM EDT [facility] Comment:Performed by [employer] nucleic acid assay. NASOPHARYNGEAL SWAB / Unknown 04/05/2025 12:08 AM EDT 04/05/2025 12:16 AM EDT Haley Ortiz HAND ROLLER - SUPERVISOR IN[employer]ORY MERCHANDISING MICROBIOLOGY - GENERAL ORDERABLES Final Result [facility] [address] [place] [address], [facility] [phone] [facility]ENTERNala [address] [place] [address], [facility] [phone] * (ABNORMAL) Glucose, Whole Blood (04/04/2025 10:49 PM EDT) POC Glucose 373(H) 74 - 100 mg/dL 04/04/2025 10:49 PM EDT [facility] 04/04/2025 10:4 9 PM EDT 04/04/2025 11:19 PM EDT Joey Cornejo MD CHEMISTRY ORDERABLES Final Resul t [facility] [address] [place] [address], [facility] [phone] * (ABNORMAL) Blood Gas, Venous (04/04/2025 8:50 PM EDT) pH, Pankaj 7.451(H) 7.32 - 7.42 04/04/2025 8:50 PM EDT [facility] pCO2, Pankaj 42.7 39 - 55 mm Hg 04/04/2025 8:50 PM EDT [facility] PO2, Pankaj 57.5(H) 30.0 - 50.0 mm Hg 04/04/2025 8:50 PM EDT [facility] HCO3, Venous 29.1 24.0 - 30.0 mmol/L 04/04/2025 8:50 PM EDT [facility] Positive Base Excess, Pankaj 4.6(H) 0.0 - 2.0 mmol/L 04/04/2025 8:50 PM EDT [facility] O2 Sat, Pankaj 91.0(H) 60.0 - 85.0 % 04/04/2025 8:50 PM EDT [facility] Pt Temp 37.0 04/04/2025 8:50 PM EDT [facility] pH, Pankaj, Temp Adj 7.451(H) 7.320 - 7.420 04/04/2025 8:50 PM EDT [facility] pCO2, Pankaj, Temp Adj 42.7 39.0 - 55.0 mmHg 04/04/2025 8:50 PM EDT [facility] pO2, Pankaj, Temp Adj 57.5(H) 30.0 - 50.0 mmHg 04/04/2025 8:50 PM EDT [facility] O2 Device/Flow/% Cannula 04/04/2025 8:50 PM EDT [facility] Junaid Test NOT APPLICABLE 04/04/2025 8:50 PM EDT [facility] FIO2 28 04/04/2025 8:50 PM EDT [facility] 04/04/2025 8:50 PM EDT 04/04/2025 8:52 PM EDT us Joey Cornejo MD CHEMISTRY ORDERABLES Final Resul t [facility] [address] [place] [address] * (ABNORMAL) Glucose, Whole Blood (04/04/2025 7:48 PM EDT) [facility] POC Glucose 386(H) 74 - 100 mg/dL 04/04/2025 7:48 PM EDT [facility] 04/04/2025 7:48 PM EDT 04/04/2025 7:55 PM EDT us Libia Amos DO CHEMISTRY ORDERABLES Final Re sult Performing Organization Address [facility]/ZIP Co de Phone Number [facility] [address] [place] [address] * CT CHEST PULMONARY EMBOLISM W CONTRAST [...] reflex to FT4 (04/04/2025 6:15 PM EDT) [facility] TSH 1.55 0.27 - 4.20 uIU/mL 04/04/2025 6:15 PM EDT [facility] Blood BLOOD SPECIMEN / Unknown 04/04/2025 6:15 PM EDT 04/04/2025 8:26 PM EDT Joey Cornejo MD CHEMISTRY ORDERABLES Final Resul t Performing Organization Address City/[facility]/ZIP Co de Phone Number [facility] [address] [place] [address] * C-Reactive Protein (04/04/2025 6:15 PM EDT) [facility] CRP <3.0 0.0 - 5.0 mg/L 04/04/2025 6:15 PM EDT [facility] Blood BLOOD SPECIMEN / Unknown 04/04/2025 6:15 PM EDT 04/04/2025 8:26 PM EDT Joey Cornejo MD CHEMISTRY ORDERABLES Final Resul t Performing Organization Address City/[facility]/ZIP Co de Phone Number [facility] [address] [place] [address] * (ABNORMAL) Hemoglobin A1C (04/04/2025 6:15 PM EDT) [facility] Hemoglobin A1C 12.7(H) 4.0 - 6.0 % 04/04/2025 6:15 PM EDT MERCNala Estimated Avg Glucose 318 mg/dL 04/04/2025 6:15 PM EDT [facility] [employer] Comment: The ADA and AACC recommend providing the estimated average glucose result to permit better patient understanding of their HBA1c result. Blood BLOOD SPECIMEN / Unknown 04/04/2025 6:15 PM EDT 04/04/2025 6:57 PM EDT Kym Espino DO CHEMISTRY ORDERABLES Final Result Performing Organization Address City/[facility]/ZIP Co de Phone Number [facility] [address] [place] [address], [facility] [phone] [place] [id number], [facility] [phone] * (ABNORMAL) Troponin (04/04/2025 6:15 PM EDT) Troponin, High Sensitivity 55(HH) 0 - 22 ng/L 04/04/2025 6:15 PM EDT [facility] Comment:High Sensitivity Tro ponin values cannot be compared with other Troponin methodologies. Blood BLOOD SPECIMEN / Unknown 04/04/2025 6:15 PM EDT 04/04/2025 6:18 PM EDT Kym Espino DO CHEMISTRY ORDERABLES Final Result Performing Organization Address [facility]/ZIP Co de Phone Number [facility] [address] [place] [address], [facility] [phone] * Beta-Hydroxybutyrate (04/04/2025 6:15 PM EDT) Beta-Hydroxybut yrate 0.18 0.02 - 0.27 mmol/L 04/04/2025 6:15 PM EDT [facility] BLOOD SPECIMEN / Unknown 04/04/2025 6:15 PM EDT 04/04/2025 6:18 PM EDT Kym Espino DO CHEMISTRY ORDERABLES Final Result [facility] [address] [phone] * Vascular duplex lower extremity venous bilateral [...] filling and normal phasic and spontaneous flow. [employer] Principal Details A garcia scale, color Doppler imaging and spectral Doppler analysis ultrasound was performed. During the study longitudinal and transverse views were obtained. Continuous wave doppler and pulsed wave doppler was performed. Overall the study quality was adequate. Study was technically difficult due to: patient positioning. us Kym Espino DO CV VASCULAR ORDERABLES Maureen adriano Result * (ABNORMAL) Blood Gas, Venous (04/04/2025 4:55 PM EDT) pH, Pankaj 7.395 7.32 - 7.42 04/04/2025 4:55 PM EDT [facility] pCO2, Pankaj 41.8 39 - 55 mm Hg 04/04/2025 4:55 PM EDT [facility] PO2, Pankaj 99.9(H) 30.0 - 50.0 mm Hg 04/04/2025 4:55 PM EDT [facility] HCO3, Venous 25.0 24.0 - 30.0 mmol/L 04/04/2025 4:55 PM EDT [facility] Positive Base Excess, Pankaj 0.1 0.0 - 2.0 mmol/L 04/04/2025 4:55 PM EDT [facility] O2 Sat, Pankaj 97.5(H) 60.0 - 85.0 % 04/04/2025 4:55 PM EDT [facility] Pt Temp 37.0 04/04/2025 4:55 PM EDT [facility] pH, Pankaj, Temp Adj 7.395 7.320 - 7.420 04/04/2025 4:55 PM EDT [facility] pCO2, Pankaj, Temp Adj 41.8 39.0 - 55.0 mmHg 04/04/2025 4:55 PM EDT [facility] pO2, Pankaj, Temp Adj 99.9(H) 30.0 - 50.0 mmHg 04/04/2025 4:55 PM EDT [facility] O2 Device/Flow/% ROOM AIR 04/04/2025 4:55 PM [facility] Junaid Test NOT APPLICABLE 04/04/2025 4:55 PM EDT [facility] FIO2 21 04/04/2025 4:55 PM T [facility] 04/04/2025 4:55 PM EDT 04/04/2025 5:00 PM EDT us Kym Espino DO CHEMISTRY ORDERABLES Final Result [facility] [address] [id number] [phone] * EKG 12 Lead (04/04/2025 4:49 PM EDT) Pathologist [facility] Ventricular Rate 91 BPM [facility] Atrial Rate 91 BPM [facility] P-R Interval 202 ms [facility] QRS Duration 112 ms [facility] Q-T Interval 384 ms [facility] QTc Calculation (Bazett) [address] [facility] P [place] [address] [facility] R [place] -2 degrees [facility] [facility] [place] [address] [facility] 04/04/2025 4:49 PM EDT Narrative [facility] - 04/04/2025 11:59 PM EDT Normal [...] Rui Marquez ([id number]) on 04/04/2025 11:59:15 PM Kym Espino DO ECG ORDERABLES Final Resul t [facility] * XR CHEST PORTABLE (04/04/2025 4:46 [...] IMPRESSION: No acute abnormality. Kym Espino DO IMG DIAGNOSTIC IMAGING ORDE JESENIA Final Result * D-Dimer, Quantitative (04/04/2025 4:25 PM EDT) [facility] D-Dimer, Quant 0.37 0.00 - 0.59 ug/mL FEU 04/04/2025 4:25 PM EDT [facility] Comment: When combined with a [...] HEMATOLOGY ORDERABLES Final Result Performing Organization Address City/[facility]/ZIP Co de Phone Number [facility] [address] [phone] * (ABNORMAL) Troponin (04/04/2025 4:25 PM EDT) Pathologist [facility] Troponin, High Sensitivity 42(H) 0 - 22 ng/L 04/04/2025 4:25 PM EDT [facility] Comment:High Sensitivity Tro ponin values cannot be compared with other Troponin methodologies. Blood BLOOD SPECIMEN / Unknown 04/04/2025 4:25 PM EDT 04/04/2025 4:33 PM EDT Kym Espino DO CHEMISTRY ORDERABLES Final Result Performing Organization Address [facility]/ZIP Co de Phone Number [facility] [address] [phone] * (ABNORMAL) CBC with Auto Differential (04/04/2025 4:25 PM EDT) [facility] WBC 10.2 3.5 - 11.3 k/uL 04/04/2025 4:25 PM EDT [facility] RBC 4.83 4.21 - 5.77 m/uL 04/04/2025 4:25 PM EDT [facility] Hemoglobin 14.6 13.0 - 17.0 g/dL 04/04/2025 4:25 PM EDT [facility] Hematocrit 42.3 40.7 - 50.3 % 04/04/2025 4:25 PM EDT [facility] MCV 87.6 82.6 - 102.9 fL 04/04/2025 4:25 PM EDT [facility] MCH 30.2 25.2 - 33.5 pg 04/04/2025 4:25 PM EDT [facility] MCHC 34.5 28.4 - 34.8 g/dL 04/04/2025 4:25 PM EDT [facility] RDW 13.4 11.8 - 14.4 % 04/04/2025 4:25 PM [facility] Platelets 233 138 - 453 k/uL 04/04/2025 4:25 PM [facility] MPV 9.4 8.1 - 13.5 fL 04/04/2025 4:25 PM [facility] NRBC Automated 0.0 0.0 per 100 WBC 04/04/2025 4:25 PM [facility] Neutrophils % 75(H) 36 - 65 % 04/04/2025 4:25 PM [facility] Lymphocytes % 17(L) 24 - 43 % 04/04/2025 4:25 PM [facility] Monocytes % 7 3 - 12 % 04/04/2025 4:25 PM [facility] Eosinophils % 1 1 - 4 % 04/04/2025 4:25 PM [facility] Basophils % 0 0 - 2 % 04/04/2025 4:25 PM [facility] Immature Granulocytes % 0 0 % 04/04/2025 4:25 PM [facility] Neutrophils Absolute 7.54 1.50 - 8.10 k/uL 04/04/2025 4:25 PM [facility] Lymphocytes Absolute 1.76 1.10 - 3.70 k/uL 04/04/2025 4:25 PM [facility] Monocytes Absolute 0.67 0.10 - 1.20 k/uL 04/04/2025 4:25 PM [facility] Eosinophils Absolute 0.12 0.00 - 0.44 k/uL 04/04/2025 4:25 PM [facility] Basophils Absolute <0.03 0.00 - 0.20 k/uL 04/04/2025 4:25 PM [facility] Immature Granulocytes Absolute 0.04 0.00 - 0.30 k/uL 04/04/2025 4:25 PM [facility] 04/04/2025 4:25 PM EDT 04/04/2025 4:33 PM EDT us Kym Espino DO HEMATOLOGY ORDERABLES Final Result Performing Organization Address City/[facility]/ZIP Co de Phone Number [facility] [address] [place] [address] * (ABNORMAL) Brain Natriuretic Peptide (04/04/2025 4:25 PM EDT) NT Pro-BNP 854(H) 0 - 125 pg/mL 04/04/2025 4:25 PM EDT [facility] Blood BLOOD SPECIMEN / Unknown 04/04/2025 4:25 PM EDT 04/04/2025 4:33 PM EDT us Kym Espino DO CHEMISTRY ORDERABLES Final Result Performing Organization Address [facility]/ZIP Co de Phone Number [facility] [address] [place] [address] * (ABNORMAL) Basic Metabolic Panel (04/04/2025 4:25 PM EDT) Sodium 133(L) 136 - 145 mmol/L 04/04/2025 4:25 PM EDT [facility] Potassium 3.7 3.7 - 5.3 mmol/L 04/04/2025 4:25 PM EDT [facility] Chloride 95(L) 98 - 107 mmol/L 04/04/2025 4:25 PM EDT [facility] CO2 24 20 - 31 mmol/L 04/04/2025 4:25 PM EDT [facility] Anion Gap 14 9 - 16 mmol/L 04/04/2025 4:25 PM EDT [facility] Glucose 563(HH) 74 - 99 mg/dL 04/04/2025 4:25 PM EDT [facility] BUN 10 8 - 23 mg/dL 04/04/2025 4:25 PM EDT [facility] Creatinine 0.7 0.70 - 1.20 mg/dL 04/04/2025 4:25 PM EDT [facility] Est, Jia Filt Rate >90 >60 mL/min/1.7 3m2 04/04/2025 4:25 PM EDT [facility] Comment: These results are not [...] 9 - 20 04/04/2025 4:25 PM EDT [facility] Calcium 8.7 8.6 - 10.4 mg/dL 04/04/2025 4:25 PM EDT [facility] Blood BLOOD SPECIMEN / Unknown 04/04/2025 4:25 PM EDT 04/04/2025 4:33 PM EDT us Kym Espino DO CHEMISTRY ORDERABLES Final Result [facility] [address] [place] [address] * EKG 12 Lead (04/04/2025 4:24 PM EDT) [facility] Ventricular Rate 100 BPM [facility] Atrial Rate [address] [facility] P-R Interval 198 ms [facility] QRS Duration 108 ms [facility] Q-T Interval 350 ms [facility] QTc Calculation (Bazett) [address] [facility] P [place] [address] [facility] R [place] -[address] [facility] T [place] 53 degrees [facility] 04/04/2025 4:24 PM EDT Narrative [facility] - 04/04/2025 11:59 PM EDT Sinus rhythm with Premature atrial complexes Minimal voltage criteria for LVH, may be normal variant ( Vnace product ) Septal infarct (cited on or [...] for LVH, may be normal variant ( [place] product) Septal infarct (cited on or before 19-Mar-2025) Abnormal ECG When compared with ECG of 19-Mar-2025 08:45, Premature atrial complexes are now Present Vent. rate has increased by 34 bpm Serial changes of Septal infarct Present Confirmed by Rui Marquez ([id number]) on 04/04/2025 11:59:09 PM Kym Espino DO ECG ORDERABLES Final Resul t [facility] documented in this encounter Visit [...] diabetes mellitus (HCC) Coronary artery disease involving [place] coronary artery of [place] heart without angina pectoris COPD exacerbation (HCC) Obstructive chronic bronchitis with exacerbation Uncontrolled hypertension Unspecified essential hypertension New onset type 2 diabetes mellitus (HCC) Abnormal stress test Other nonspecific abnormal cardiovascular [...] 9:17 PM EDT 20 mL/hr 20 mL/hr acetaminophen (TYLENOL) suppository 650 mg 650 [...] sodium chloride 0.9 % 250 mL IVPB ([id number]) 500 mg, IntraVENous, EVERY 24 HOURS, 3 doses, First dose on Thu04/04/25 at 2014, Last dose on Thu04/06/25 at 2014, Antimicrobial Indications: COPD Exacerbation, COPD exacerbation duration of therapy: Other, Other COPD Exacerbation Duration: 3 days, Use 20mm (Blue) [id number] Adapter Preparation instructions: Attach medication vial to one 20mm (Blue) [id number] adapter. Kenneth fluid bag with adapter, mix, and administer per order. New Bag 04/05/2025 9:14 PM EDT 500 mg 250 mL/hr New Bag 04/04/2025 10:55 PM EDT 500 mg 250 mL/hr benzonatate (TESSALON) capsule 100 mg 100 mg, Oral, 3 TIMES DAILY PRN, Starting on Thu04/04/25 at 2005, Until Thu04/06/25 at 2043, Cough Given 04/05/2025 12:27 PM [...] for injection by adding 1 mL of traffic expert-supplied sterile diluent or sterile water for injection [...] Given 04/05/2025 8:18 AM EDT 600 mg guaiFENesin-dextromethorpha n (ROBITUSSIN DM) 100-10 MG/5ML syrup 5 mL 5 mL, Oral, EVERY 4 HOURS PRN, Starting on Thu04/04/25 at 2005, Until Thu04/06/25 at 2043, Cough heparin (porcine) injection PRN, Starting on Thu04/06/25 at 1555, Until Thu04/06/25 at 1604, Intra-procedure(Cath) Given 04/06/2025 3:55 PM EDT 5,000 Units hydrALAZINE (APRESOLINE) injection 10 mg 10 mg, [...] m Left iopamidol (ISOVUE-370) 76 % injection PRN, Starting on Thu04/06/25 at 1604, Until Thu04/06/25 at 1604, Intra-procedure(Cath) Given 04/06/2025 4:04 PM EDT 4 5 mLs ipratropium 0.5 mg-albuterol 2.5 mg (DUONEB) nebulizer solution 1 Dose 1 Dose, Inhalation, 4 times daily, First dose (after last modification) on Thu04/05/25 at 0600, Until Discontinued, Initiate RT Bronchodilator Protocol: Yes - Inpatient Protocol Given 04/06/2025 10:52 AM EDT 1 Dose Given 04/06/2025 5:28 AM EDT 1 Dose Given 04/05/2025 8:30 PM EDT 1 Dose lidocaine 1 % injection PRN, Starting on Thu04/06/25 at 1550, Until Thu04/06/25 at 1604, Intra-procedure(Cath) Given 04/06/2025 3:50 PM EDT 1 mL Wrist Right losartan (COZAAR) tablet 100 mg 100 mg, [...] EDT 500 mg methylPREDNISolone sodium succ (SOLU-MEDROL) 40 mg [...] Given 04/05/2025 5:08 PM EDT 25 mg nitroGLYCERIN injection PRN, Starting on Thu04/06/25 at 1551, Until Thu04/06/25 at 1604, Intra-procedure(Cath) Given 04/06/2025 3:51 PM EDT 100 mcg Wrist Right ondansetron (ZOFRAN) injection 4 mg 4 mg, IntraVENous, EVERY 6 HOURS PRN, Starting on Thu04/04/25 at 2001, Until Thu04/06/25 at 2043, Nausea, Vomiting, Administer if oral [...] dose on Thu04/09/25 at 0900 sodium chloride flush 0.9 % injection 5-40 [...] Given 04/05/2025 2:32 PM EDT 5 mLs verapamil (ISOPTIN) injection PRN, Starting on Thu04/06/25 at 1552, Until Thu04/06/25 at 1604, Intra-procedure(Cath) Given 04/06/2025 3:52 PM EDT 2 .5 mg documented in this encounter Active and Recently Administered Medications Times are shown in EDT. Scheduled Medication Order 04/04/2025 04/05/2025 04/06/2025 albuterol (PROVENTIL) (2.5 MG/3ML) 0.083% nebulizer solution 2.5 mg (CANCELED) 2.5 mg, Nebulization, 4 TIMES DAILY RESP, First dose on Thu04/04/25 at 2014, Until Discontinued, Initiate RT Bronchodilator Protocol: Yes - Inpatient Protocol 2031 (Given - Provider: Martínez Jane GENERAL OPERATIONS AGENT - Comment: pt SOB) aspirin chewable tablet 81 mg 81 mg, Oral, DAILY, First dose on Thu04/06/25 at 1215, Until Discontinued 1305 (Given - Provider: Roro Arreola) atorvastatin (LIPITOR) tablet 40 mg 40 mg, Oral, NIGHTLY, First dose on Thu04/06/25 at 2100, Until Discontinued azithromycin (ZITHROMAX) 500 mg in sodium chloride 0.9 % 250 mL IVPB ([id number]) 500 mg, IntraVENous, EVERY 24 HOURS, 3 doses, First dose on Thu04/04/25 at 2014, Last dose on Thu04/06/25 at 2014, Antimicrobial Indications: COPD Exacerbation, COPD exacerbation duration of therapy: Other, Other COPD Exacerbation Duration: 3 days, Use 20mm (Blue) [id number] Adapter Preparation instructions: Attach medication vial to one 20mm (Blue) [id number] adapter. Kenneth fluid bag with adapter, mix, and administer per order. 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 1708 (Given - Provider: Melly Sandy RN) 1305 [...] On Thu04/04/25 at 1900, For 1 dose 191 (New Bag - Provider: Gail Etienne RN)1952 [...] Etienne RN) 08 (Given - Provider: Melly Sandy, SERENITY)204 (Given - Provider: Amisha Gutierrez, SERENITY) 0828 (Given - Provider: Roro Arreola) Continuous Medication Order 04/04/2025 04/05/2025 04/06/2025 0.9 % sodium chloride infusion (CANCELED) IntraVENous, at 75 mL/hr, CONTINUOUS, Starting on Thu04/04/25 at 2014, For 24 hours, Complete last bag that is running at 24 hours and then saline lock IV 2220 (New Bag - Provider: Gail Etienne, SERENITY)235 (Stopped - Provider: Gail Etienne, SERENITY) niCARdipine (CARDENE) 25 mg in sodium chloride 0.9 % 250 mL infusion ([id number]) (CANCELED) 2.5-15 mg/hr (25-150 mL/hr), IntraVENous, CONTINUOUS, [...] used to maintain goal. Use 20mm (Blue) [id number] Adapter Preparation instructions: Attach medication vial to one 20mm (Blue) [id number] adapter. Kenneth fluid bag with adapter, mix, and administer per order. 2201 (New Bag - Provider: Gail Etienne RN)223 (Rate/Dose Change - Provider: Mele Knowles RN)2320 [...] Paige 04/06/25 at 2043, Low blood sugar, Blood glucose less than 70 mg/dL and patient NOT ALERT or NPO and does not have IV access., After administration, attempt intravenous access and start D5W at 100 mL/hr. Repeat blood glucose in 15 minutes x2 and notify provider. Reconstitute powder for injection by adding 1 mL of traffic expert-supplied sterile diluent or sterile water for injection [...] 04/04/25 at 2005, Until Paige 04/06/25 at 2043, Cough heparin (porcine) injection (CANCELED) PRN, Starting on Paige 04/06/25 at 1555, Until Paige 04/06/25 at 1604, Intra-procedure(Cath) 1555 (Given - Provider: Roslyn Ricci RN) hydrALAZINE (APRESOLINE) injection 10 mg 10 mg, IntraVENous, EVERY 4 HOURS PRN, Starting on Thu04/04/25 at 2008, Until Paige 04/06/25 at 2043, SBP > 150 iopamidol (ISOVUE-370) 76 % injection 75 mL (COMPLETED) 75 mL, IntraVENous, IMG ONCE PRN, 1 dose, Starting on Thu04/04/25 at 1855, Until 04/04/25 at 1903, Other 1903 (Given - Provider: [...] Until Paige 04/06/25 at 2043, Nausea, Vomiting polyethylene glycol (GLYCOLAX) packet 17 g 17 g, Oral, DAILY PRN, Starting on Thu04/04/25 at 2001, Until Paige 04/06/25 at 2043, Constipation, First line therapy for [...] Oral, EVERY 8 HOURS PRN, Starting on e 04/04/25 at 2001, Until Paige 04/06/25 at 2043, Nausea, Vomiting Or ondansetron (ZOFRAN) injection 4 mgJump to med 4 mg, IntraVENous, EVERY 6 HOURS PRN, Starting on 04/04/25 at 2001, Until Paige 04/06/25 at 2043, [...]
--- OUTSIDE RECORDS SUMMARY | 2025-04-12 19:27 | XMS_ITS | Encounter Summary ---
Author Organization [facility] Address [address] [place] [address] Care Team Providers Care Video Arcade Manager Name Role Phone Unavailable Primary Care Provider Unavailabl e Encounter Details Date Type Department Care Team (Latest Contact Info) Description 04/05/2025 Travel Social History Tobacco Use Types Packs/Day Years Used Date Smoking Tobacco: Every Day Cigarettes 2 58.4 Started: 1966 Smokeless Tobacco: Former Chew Alcohol Use Standard Drinks/Week Comments Yes 10 (1 standard drink = 0.6 oz pu re alcohol) [facility] Utilities Answer Date Recorded In the past 12 months has [employer], gas, oil, or water [employer] threatened to shut off services in your [...] any time in the past [address] [facility], were you homeless or living in a usp (including now)? No 04/05/2025 Food Insecurity Answer [...] on file documented as of this encounter Functional Status documented as of this encounter Plan of Treatment Not on file documented as of this encounter Visit Diagnoses Not on filedocumented in this encounter Additional Health Concerns Infection Onset Date Last Indicated Resolved Time COVID-19 (Rule Out) 04/04/2025 04/05/2025 04/05/20 25 4:26 PM EDT Assessment Noted Time A Body Mass Index follow-up plan has been documented for the patient 05/13/2021 11:21 AM EDT documented as of this encounter
--- OUTSIDE RECORDS SUMMARY | 2025-04-12 19:28 | XMS_ITS | Clinical Summary ---
Author Organization [facility] Address [address] [place] [address] Care Team Providers Care Electronic Pagination System Operator Name Role Phone Unavailable Primary Care Provider Unavailabl e Allergies No known active allergies Medications omeprazole (PRILOSEC) 10 MG delayed release capsule Take 1 capsule by mouth daily Active mupirocin (BACTROBAN) 2 % ointment Apply topically 3 times daily for 5 days. 22 g 05/13/20 21 Active albuterol sulfate HFA (VENTOLIN HFA) 108 (90 Base) MCG/ACT inhaler Inhale 2 puffs into the lungs 4 times daily as needed for Wheezing 18 g 03/19/20 25 Active aspirin 81 MG chewable tablet Take 1 tablet by mouth daily 30 tablet 3 04/07/20 25 Active glipiZIDE (GLUCOTROL) 5 MG tablet Take 1 tablet by mouth every morning (before breakfast) 60 tablet 3 04/07/20 25 Active metFORMIN (GLUCOPHAGE) 500 MG tablet Take 1 tablet by mouth 2 times daily (with meals) 60 tablet 3 04/06/20 25 Active atorvastatin (LIPITOR) 40 MG tablet Take 1 tablet by mouth nightly 30 tablet 3 04/06/20 25 Active metoprolol succinate (TOPROL XL) 25 MG extended release tablet Take 1 tablet by mouth daily 30 tablet 3 04/07/20 25 Active losartan-hydroCH LOROthiazide (HYZAAR) 100-25 MG per tablet Take 1 tablet by mouth daily 30 tablet 5 04/06/20 25 Active albuterol (PROVENTIL) (2.5 MG/3ML) 0.083% nebulizer solutionIndicati ons:COPD with acute exacerbation (HCC) Take 3 mLs by nebulization every 4 hours as needed for Wheezing 120 each 3 04/06/20 25 Active predniSONE (DELTASONE) 50 MG tablet Take 1 tablet by mouth daily for 5 days 5 tablet 03/19/20 25 025 losartan (COZAAR) 100 MG tablet Take 1 tablet by mouth daily 025 Discontinu ed(Stop Taking at Discharge) doxycycline hyclate (VIBRA-TABS) 100 MG tablet Take 1 tablet by mouth 2 times daily for 5 days 10 tablet 04/06/20 25 025 predniSONE (DELTASONE) 20 MG tablet Take 1 tablet by mouth 2 times daily for 5 days 10 tablet 04/06/20 25 025 Active Problems Problem Noted Date Diagnosed Date Non-ischemic cardiomyopathy 04/06/2025 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 04/06/2025 Coronary artery disease invo lving ton[place] coronary artery of [place] heart without angina pectoris 04/06/2025 Hypertensive urgency 04/06/2025 Abnormal stress test 04/06/2025 Hyperlipidemia LDL goal <70 04/06/2025 Acute respiratory failure with hypoxia COPD with acute exacerbation 04/04/2025 Uncontrolled hypertension 04/04/2025 New onset type 2 diabetes mellitus 04/04/2025 Encounters Date Type Department Care Team Description 04/06/2025 3:32 PM EDT - 04/06/2025 4:32 PM EDT Surgery [facility] Cardiac Cath/IR Lab [address] [place], [place] [id number] Rui Marquez MD Left heart cath / coronary angiography 04/06/2025 11:10 AM EDT - 04/08/2025 11:59 PM EDT Hospital Encounter [facility] Non-Invasive Cardiology [address] [place] [id number] Discharge Disposition: Home or Self Care 04/05/2025 Travel 04/04/2025 4:06 PM EDT - 04/06/2025 6:40 PM EDT Hospital Encounter [facility] MED SURG [address] [place] [id number] Kym Espino, Libia Mccarty, Joey Orlando MD COPD with acute exacerbation (HCC) (Primary Dx); Hypoxia; Hypertensive urgency; Diabetes mellitus, new onset (HCC); Shortness of breath; Abnormal stress test; Idiopathic cardiomyopathy (HCC); New onset type 2 diabetes mellitus (HCC); Coronary artery disease involving [place] coronary artery of [place] heart without angina pectoris Discharge Disposition: Home or Self Care 03/19/2025 8:34 AM EDT - 03/19/2025 1:58 PM EDT Emergency [facility] Emergency Department [address] [place] [address] Nelly Carbajal MD COPD exacerbation (HCC) (Primary Dx); Essential hypertension Discharge Disposition: Home or Self Care 03/19/2025 Travel from Last 3 Months Social History Tobacco Use Types Packs/Day Years Used Date Smoking Tobacco: Every Day Cigarettes 2 58.4 Started: 1966 Smokeless Tobacco: Former Chew Tobacco Cessation:Ready to Q uit: Not Asked; Counseling Given: Not Answered Alcohol Use Standard Drinks/Week Comments Yes 10 (1 standard drink = 0.6 oz pu re alcohol) [facility] [employer] Answer Date Recorded In the past 12 months has [employer], or water [employer] threatened to shut off services in your [...] time in the past 12 m [facility], were you homeless or living in a skilled nursing (including now)? No 04/05/2025 Food Insecurity Answer [...] on file Sexual Orientation Not on file Last Filed Vital Signs Vital Sign Reading [...] Mass Index 22.52 04/05/2025 9:13 AM EDT Plan of Treatment Health Maintenance Due Date Last Done Comments Diabetic foot exam 1964 Depression Screen 1966 Diabetic Alb to Cr ratio (uACR) test 1972 Diabetic retinal exam 1972 Hepatitis C screen 1972 DTaP/Tdap/Td vaccine (1 - Tdap) 1973 Pneumococcal 50+ years Vaccine (1 of 2 - PCV) 1973 Colonoscopy 1999 Colorectal Cancer Screen 1999 FIT/FOBT: Average risk 1999 Fecal-DNA (Cologuard): Average risk 1999 Sigmoidoscopy/CT colonography 1999 Lung Cancer Screening &/or Counseling 2004 Shingles vaccine (1 of 2) 2004 Respiratory Syncytial Virus (RSV) or age 60 yrs+ (1 - Risk 60-74 years 1-dose series) 2014 AAA screen 2019 COVID-19 Vaccine ( - season) 2024 Annual Wellness Visit (Medicare) 03/19/2025 Flu vaccine (Season Ended) 2025 A1C test (Diabetic or Prediabetic) 07/05/2025 04/04/2025 GFR test (Diabetes, CKD 3-4, OR last GFR 15-59) 04/06/2026 04/06/2025, 04/05/2025, 04/04/2025, Additional history exists Lipids 04/06/2026 04/06/2025 Diabetes screen Discontinued 04/04/2025 Hepatitis A vaccine Aged Out No longe r eligible based on patient's age to complete this topic Hepatitis B vaccine Aged Out No longe r eligible based on patient's age to complete this topic Hib vaccine Aged Out No longer eligi ble based on patient's age to complete this topic Meningococcal (ACWY) vaccine Aged Out No longer eligible based on patient's age to complete this topic Meningococcal B vaccine Aged Out No l onger eligible based on patient's age to complete this topic Polio vaccine Aged Out No longer elig ible based on patient's age to complete this topic Procedures Procedure Name Priority Date/Time Associated Diagnosis [...] RHYTHM STRIP Routine 04/06/2025 6:00 AM EDT LIPID PANEL Add-On 04/06/2025 5:55 AM EDT TROPONIN Add-On 04/06/2025 5:55 AM EDT BRAIN NATRIURETIC PEPTIDE Add-On 04/06/2025 5:55 AM EDT C-REACTIVE PROTEIN Routine 04/06/2025 5: 55 AM EDT CBC WITH AUTO DIFFERENTIAL Routine 04/06/2025 5:55 AM EDT PROCALCITONIN Routine 04/06/2025 5:55 AM EDT COMPREHENSIVE METABOLIC PANEL W/ REFLEX TO MG FOR LOW K Routine 04/06/2025 5:55 AM EDT GLUCOSE, WHOLE BLOOD Routine 04/05/2025 8:11 PM EDT GLUCOSE, WHOLE BLOOD Routine 04/05/2025 3:56 PM EDT EKG RHYTHM STRIP Routine 04/05/2025 2:59 PM EDT GLUCOSE, WHOLE BLOOD Routine 04/05/2025 10:57 AM EDT ECHO (TTE) COMPLETE STAT 04/05/2025 1 0:00 AM EDT Shortness of breath C-REACTIVE PROTEIN STAT 04/05/2025 7: 01 AM EDT CBC WITH AUTO DIFFERENTIAL STAT 04/05/2025 7:01 AM EDT BRAIN NATRIURETIC PEPTIDE STAT 04/05/2025 7:01 AM EDT PROCALCITONIN STAT 04/05/2025 7:01 AM EDT COMPREHENSIVE METABOLIC PANEL W/ REFLEX TO MG FOR LOW K STAT 04/05/2025 7:01 AM EDT GLUCOSE, WHOLE [...] FT4 STAT 04/04/2025 6:1 5 PM EDT C-REACTIVE PROTEIN STAT 04/04/2025 6: 15 PM EDT HEMOGLOBIN A1C Add-On 04/04/2025 6:15 PM EDT TROPONIN STAT 04/04/2025 6:15 PM EDT BETA-HYDROXYBUTYRATE STAT 04/04/2025 6:15 PM EDT VAS DUP LOWER EXTREMITY VENOUS BILATERAL STAT 04/04/2025 5:52 PM EDT BLOOD GAS, VENOUS Routine 04/04/2025 4:5 5 PM EDT EKG 12-LEAD Routine 04/04/2025 4:49 PM EDT XR CHEST PORTABLE STAT 04/04/2025 4:4 6 PM EDT D-DIMER, QUANTITATIVE STAT 04/04/2025 4:25 PM EDT TROPONIN STAT 04/04/2025 4:25 PM EDT CBC WITH AUTO DIFFERENTIAL STAT 04/04/2025 4:25 PM EDT BRAIN NATRIURETIC PEPTIDE STAT 04/04/2025 4:25 PM EDT BASIC METABOLIC PANEL STAT 04/04/2025 4:25 PM EDT EKG 12-LEAD STAT 04/04/2025 4:24 PM EDT TROPONIN STAT 03/19/2025 10:33 AM EDT BLOOD GAS, VENOUS Routine 03/19/2025 9:3 9 AM EDT XR CHEST PORTABLE STAT 03/19/2025 9:1 1 AM EDT D-DIMER, QUANTITATIVE STAT 03/19/2025 8:54 AM EDT TROPONIN STAT 03/19/2025 8:54 AM EDT BRAIN NATRIURETIC PEPTIDE STAT 03/19/2025 8:54 AM EDT MAGNESIUM STAT 03/19/2025 8:54 AM EDT COMPREHENSIVE METABOLIC PANEL STAT 03/19/2025 8:54 AM EDT CBC WITH AUTO DIFFERENTIAL STAT 03/19/2025 8:54 AM EDT EKG 12-LEAD STAT 03/19/2025 8:45 AM EDT from Last 3 Months Results * (ABNORMAL) Glucose, Whole Blood (04/06/2025 5:16 PM EDT) Only the most recent of10 resultswithin the time period is included. Pathologist [facility] POC Glucose 316(H) 74 - 100 mg/dL 04/06/2025 5:16 PM EDT [facility] 04/06/2025 5:16 PM EDT 04/06/2025 5:24 PM EDT us Joey Cornejo MD CHEMISTRY ORDERABLES Final Resul t [facility] [address] [phone] * LEFT HEART CATH / CORONARY ANGIOGRAPHY (04/06/2025 4:04 PM EDT) [facility] Body Surface Area 1.91 m2 BS CV CPACS HEMO Anatomical Region Laterality Modality X-Ray Angiograph y Narrative 04/06/2025 4:58 PM EDT - Coronary Angiography Brief Post Operative Note: Mild coronary artery disease without any significant focal stenosis. Normal left ventricular end diastolic pressure (LVEDP). involving a 50% stenosis in a very large 1st septal protozoologist of the LAD. Normal left ventricular end [...] transient ischemic dilation (TID). us Afshan Santos PHYSICAL THERAPIST CLINIC DIRECTOR - UROLOGIC SURGEON CV STRESS ORD ERABLES Final Result * EKG Rhythm Strip (04/06/2025 6:00 AM EDT) Only the most recent of3 resultswithin the time period is included. 04/06/2025 6:00 AM EDT Narrative [facility] - 04/06/2025 6:08 AM EDT us Unknown Provider Result ECG ORDERABLES Final Re sult [facility] [address] [phone] * Procalcitonin (04/06/2025 5:55 AM EDT) Only the most recent of2 resultswithin the time period is included. Procalcitonin 0.04 0.00 - 0.09 ng/mL 04/06/2025 5:55 AM EDT [facility] Comment: Suspected Sepsis: <0.50 ng/mL Low likelihood [...] entered into the Change in Procalcitonin Calculator ([email or web address]-eqg-[email or web address]) to determine the patient's Mortality Risk Prognosis In healthy neonates, plasma Procalcitonin (PCT) concentrations increase gradually after , reaching peak values at about 24 hours of age then decrease to normal values below 0.5 ng/mL by 48-72 hours of age. Blood BLOOD SPECIMEN / Unknown 04/06/2025 5:55 AM EDT 04/06/2025 6:11 AM EDT us Joey Cornejo MD CHEMISTRY ORDERABLES Final Resul t [facility] [address] [place] [address], [facility] [phone] [phone] * (ABNORMAL) Comprehensive Metabolic Panel w/ Reflex to MG (04/06/2025 5:55 AM EDT) Only the most recent of2 resultswithin the time period is included. Sodium 134(L) 136 - 145 mmol/L 04/06/2025 5:55 AM [facility] Potassium 3.9 3.7 - 5.3 mmol/L 04/06/2025 5:55 AM [facility] Chloride 96(L) 98 - 107 mmol/L 04/06/2025 5:55 AM [facility] CO2 27 20 - 31 mmol/L 04/06/2025 5:55 AM [facility] Anion Gap 11 9 - 16 mmol/L 04/06/2025 5:55 AM [facility] Glucose 346(H) 74 - 99 mg/dL 04/06/2025 5:55 AM [facility] BUN 21 8 - 23 mg/dL 04/06/2025 5:55 AM [facility] Creatinine 0.8 0.70 - 1.20 mg/dL 04/06/2025 5:55 AM [facility] Est, Glom Filt Rate >90 >60 mL/min/1.7 3m2 04/06/2025 5:55 AM [facility] Comment: These results are not intended [...] 26(H) 9 - 20 04/06/2025 5:55 AM [facility] Calcium 8.5(L) 8.6 - 10.4 mg/dL 04/06/2025 5:55 AM [facility] Total Protein 5.4(L) 6.6 - 8.7 g/dL 04/06/2025 5:55 AM [facility] Albumin 3.7 3.5 - 5.2 g/dL 04/06/2025 5:55 AM EDT [facility] Albumin/Globulin Ratio 2.1 1.0 - 2.5 04/06/2025 5:55 AM EDT [facility] Total Bilirubin 0.3 0.00 - 1.20 mg/dL 04/06/2025 5:55 AM [facility] Alkaline Phosphatase 71 40 - 129 U/L 04/06/2025 5:55 AM EDT [facility] ALT 35 10 - 50 U/L 04/06/2025 5:55 AM EDT [facility] AST 24 10 - 50 U/L 04/06/2025 5:55 AM [facility] Blood BLOOD SPECIMEN / Unknown 04/06/2025 5:55 AM EDT 04/06/2025 6:11 AM EDT us Joey Cornejo MD CHEMISTRY ORDERABLES Final Resul t [facility] [address] [phone] * (ABNORMAL) CBC with Auto Differential (04/06/2025 5:55 AM EDT) Only the most recent of4 resultswithin the time period is included. WBC 13.8(H) 3.5 - 11.3 k/uL 04/06/2025 5:55 AM [facility] RBC 4.60 4.21 - 5.77 m/uL 04/06/2025 5:55 AM [facility] Hemoglobin 13.8 13.0 - 17.0 g/dL 04/06/2025 5:55 AM [facility] Hematocrit 40.2(L) 40.7 - 50.3 % 04/06/2025 5:55 AM [facility] MCV 87.4 82.6 - 102.9 fL 04/06/2025 5:55 [facility] MCH 30.0 25.2 - 33.5 pg 04/06/2025 5:55 AM [facility] MCHC 34.3 28.4 - 34.8 g/dL 04/06/2025 5:55 AM [facility] RDW 13.6 11.8 - 14.4 % 04/06/2025 5:55 AM [facility] Platelets 239 138 - 453 k/uL 04/06/2025 5:55 AM [facility] MPV 9.4 8.1 - 13.5 fL 04/06/2025 5:55 AM [facility] NRBC Automated 0.0 0.0 per 100 WBC 04/06/2025 5:55 AM [facility] Neutrophils % 90(H) 36 - 65 % 04/06/2025 5:55 AM [facility] Lymphocytes % 7(L) 24 - 43 % 04/06/2025 5:55 AM [facility] Monocytes % 3 3 - 12 % 04/06/2025 5:55 AM [facility] Eosinophils % 0(L) 1 - 4 % 04/06/2025 5:55 AM [facility] Basophils % 0 0 - 2 % 04/06/2025 5:55 AM [facility] Immature Granulocytes % 0 0 % 04/06/2025 5:55 AM [facility] Neutrophils Absolute 12.39(H) 1.50 - 8.10 k/uL 04/06/2025 5:55 AM [facility] Lymphocytes Absolute 0.96(L) 1.10 - 3.70 k/uL 04/06/2025 5:55 AM [facility] Monocytes Absolute 0.36 0.10 - 1.20 k/uL 04/06/2025 5:55 AM [facility] Eosinophils Absolute 0.05 0.00 - 0.44 k/uL 04/06/2025 5:55 AM [facility] Basophils Absolute <0.03 0.00 - 0.20 k/uL 04/06/2025 5:55 AM [facility] Immature Granulocytes Absolute 0.05 0.00 - 0.30 k/uL 04/06/2025 5:55 AM EDT [facility] Blood BLOOD SPECIMEN / Unknown 04/06/2025 5:55 AM EDT 04/06/2025 6:11 AM EDT Joey Cornejo MD HEMATOLOGY ORDERABLES Final Resu lt Performing Organization Address [facility]/ZIP Co de Phone Number [facility] [address] [place] [address] * (ABNORMAL) Troponin (04/06/2025 5:55 AM EDT) Only the most recent of5 resultswithin the time period is included. Troponin, High Sensitivity 37(H) 0 - 22 ng/L 04/06/2025 5:55 AM EDT [facility] Comment:High Sensitivity Tro ponin values cannot be compared with other Troponin methodologies. Blood BLOOD SPECIMEN / Unknown 04/06/2025 5:55 AM EDT 04/06/2025 12:02 PM EDT Afshan Santos APRN - UROLOGIC SURGEON CHEMISTRY ORD ERABLES Final Result Performing Organization Address [facility] Co de Phone Number [facility] [address] [place] [address] * C-Reactive Protein (04/06/2025 5:55 AM EDT) Only the most recent of3 resultswithin the time period is included. CRP <3.0 0.0 - 5.0 mg/L 04/06/2025 5:55 AM EDT [facility] Blood BLOOD SPECIMEN / Unknown 04/06/2025 5:55 AM EDT 04/06/2025 6:11 AM EDT Joey Cornejo MD CHEMISTRY ORDERABLES Final Resul t Performing Organization Address City/[facility]/ZIP Co de Phone Number [facility] [address] [phone] * (ABNORMAL) Brain Natriuretic Peptide (04/06/2025 5:55 AM EDT) Only the most recent of4 resultswithin the time period is included. NT Pro-BNP 780(H) 0 - 125 pg/mL 04/06/2025 5:55 AM EDT [facility] Blood BLOOD SPECIMEN / Unknown 04/06/2025 5:55 AM EDT 04/06/2025 7:15 AM EDT Afshan Santos PHYSICAL THERAPIST CLINIC DIRECTOR - UROLOGIC SURGEON CHEMISTRY ORD ERABLES Final Result Performing Organization Address [facility] Co de Phone Number [facility] [address] [place] [address] * Lipid Panel (04/06/2025 5:55 AM EDT) Cholesterol, Total 121 0 - 199 mg/dL 04/06/2025 5:55 AM EDT [facility] Comment: Cholesterol Guidelines: <200 Desirable 200-240 Borderline >240 Undesirable HDL 68 >40 mg/dL 04/06/2025 5:55 AM EDT [facility] Comment: HDL Guidelines: <40 Undesirable 40-59 Borderline >59 Desirable LDL Cholesterol 42 0 - 100 mg/dL 04/06/2025 5:55 AM EDT [facility] Comment: LDL Guidelines: <100 Desirable 100-129 Near to/above Desirable 130-159 Borderline >159 Undesirable Direct (measured) LDL and calculated LDL are not interchangeable tests. Chol/HDL Ratio 1.8 <5.0 04/06/2025 5:55 AM EDT [facility] Triglycerides 53 <150 mg/dL 04/06/2025 5:55 AM EDT [facility] Comment: Triglyceride Guidelines: <150 Desirable 150-199 Borderline 200-499 High >499 Very high Based on AHA Guidelines for fasting triglyceride, August 2012. VLDL 11 1 - 30 mg/dL 04/06/2025 5:55 AM EDT [facility] Blood BLOOD SPECIMEN / Unknown 04/06/2025 5:55 AM EDT 04/06/2025 12:02 PM EDT us Afshan Santos PHYSICAL THERAPIST CLINIC DIRECTOR - UROLOGIC SURGEON CHEMISTRY ORD ERABLES Final Result [facility] [address] [place] [address], [facility] [phone] [id number] [place] [address], [facility] [phone] * (ABNORMAL) ECHO (TTE) COMPLETE (04/05/2025 10:00 AM EDT) LV EDV A2C 138 mL [facility] CV CPACS LV EDV A4C 149 mL [facility] CV CPACS LV ESV A2C 78 mL [facility] CV CPACS LV ESV A4C 86 mL [facility] CV CPACS IVSd 1.3(A) 0.6 - 1.0 cm [facility] CV CPACS LVIDd 5.0 4.2 - 5.9 cm [facility] CV CPACS LVIDs 4.1 cm [facility] CV CPACS LVOT Diameter 2.0 cm [facility] CV CPACS LVOT Mean Gradient 2 mmHg [facility] CV [facility]ACS LVOT VTI 17.9 cm [facility] CV CPACS LVOT Peak Velocity 0.9 m/s [facility] CV CPACS LVOT Peak Gradient 3 mmHg [facility] CV CPACS LVPWd 1.1(A) 0.6 - 1.0 cm [facility] CV CPACS LV E' Lateral Velocity 7.29 cm/s [facility] CV CPACS LV Ejection Fraction A2C 43 % [facility] CV CPACS LV Ejection Fraction A4C 42 % [facility] CV CPACS EF BP 43(A) 55 - 100 % [facility] CV CPACS LVOT Area 3.1 cm2 [facility] CV CPACS LVOT SV 56.2 ml [facility] CV CPACS LA Minor Zillah 5.2 cm [facility] CV CPACS LA Major Zillah 5.3 cm [facility] CV CPACS LA Area [...] CV CPACS Aortic Sinus Valsalva 3.4 cm BS CV CPACS MV E Wave Deceleration Time [...] BS CV CPACS LVIDd Index 2.60 cm/m2 [facility] CV CPACS LVIDs Index 2.14 cm/m2 BS CV CPACS LV RWT Ratio 0.44 BS CV CPACS LV Mass 2D 233.7(A) 88 - 224 g [facility] CV CPACS LV Mass 2D Index 121.7(A) 49 - 115 g/m2 BS CV CPACS MV E/A 0.63 BS CV CPACS E/E' Lateral 7.82 [facility] CV CPACS LA Volume Index BP 37(A) 16 - 34 ml/m2 BS CV CPACS LVOT Stroke Volume Index 29.3 mL/m2 [facility] CV CPACS LA Volume Index MOD A2C 40(A) 16 - 34 ml/m2 [facility] CV CPACS LA Volume Index MOD A4C 34 16 - 34 ml/m2 BS CV CPACS Ao Root Index 0.99 cm/m2 [facility] CV CPACS Aortic Sinus Valsalva Index 1.77 cm/m2 BS CV CPACS AV Velocity Ratio 0.53 [facility] CV CPACS LVOT:AV VTI Index 0.54 [facility] CV CPACS JANIS/BSA VTI 0.9 cm2/m2 [facility] CV CPACS JANIS/BSA Peak Velocity 0.8 cm2/m2 BS CV CPACS Est. RA Pressure 3 mmHg [facility] CV CPACS RVSP 16 mmHg [facility] CV CPACS EF Physician 45 % [facility] CV CPACS Anatomical Region Laterality Modality Echocardiography [...] MD CV ECHO ORDERABLES Final Result * POCT Glucose (04/05/2025 12:28 AM EDT) Glucose 282 mg/dL QC OK? yes BLOOD SPECIMEN / Unknown 04/05/2025 12:28 AM EDT us Joey Cornejo MD POINT OF CARE TEST ORDERABLES Fi nal Result * Respiratory Panel, Molecular, with COVID-19 (Restricted: peds pts or suitable admitted adults) (04/05/2025 12:08 AM EDT) Specimen Description .NASOPHARYN GEAL SWAB 04/05/2025 12:08 AM EDT [facility] Adenovirus PCR Not Detected Not Detected 04/05/2025 12:08 AM EDT [facility] Coronavirus 229E PCR Not Detected Not Detected 04/05/2025 12:08 AM EDT [facility] Coronavirus HKU1 PCR Not Detected Not Detected 04/05/2025 12:08 AM EDT [facility] Coronavirus NL63 PCR Not Detected Not Detected 04/05/2025 12:08 AM EDT [facility] Coronavirus OC43 PCR Not Detected Not Detected 04/05/2025 12:08 AM EDT [facility] SARS-CoV-2, PCR Not Detected Not Detected 04/05/2025 12:08 AM EDT [facility] Human Metapneumovirus PCR Not Detected Not Detected 04/05/2025 12:08 AM EDT [facility] Rhino/Enterovirus PCR Not Detected Not Detected 04/05/2025 12:08 AM EDT [facility] Influenza A by PCR Not Detected Not Detected 04/05/2025 12:08 AM EDT [facility] Influenza B by PCR Not Detected Not Detected 04/05/2025 12:08 AM EDT [facility] Parainfluenza 1 PCR Not Detected Not Detected 04/05/2025 12:08 AM EDT [facility] Parainfluenza 2 PCR Not Detected Not Detected 04/05/2025 12:08 AM EDT [facility] Parainfluenza 3 PCR Not Detected Not Detected 04/05/2025 12:08 AM EDT [facility] Parainfluenza 4 PCR Not Detected Not Detected 04/05/2025 12:08 AM EDT [facility] Resp Syncytial Virus PCR Not Detected Not Detected 04/05/2025 12:08 AM EDT [facility] Bordetella parapertussis by PCR Not Detected Not Detected 04/05/2025 12:08 AM EDT [facility] B Pertussis by PCR Not Detected Not Detected 04/05/2025 12:08 AM EDT [facility] Chlamydia pneumoniae By PCR Not Detected Not Detected 04/05/2025 12:08 AM EDT [facility] Mycoplasma pneumo by PCR Not Detected Not Detected 04/05/2025 12:08 AM EDT [facility] Comment:Performed by multipl exed nucleic acid assay. NASOPHARYNGEAL SWAB / Unknown 04/05/2025 12:08 AM EDT 04/05/2025 12:16 AM EDT Haley Ortiz PHYSICAL THERAPIST CLINIC DIRECTOR - UROLOGIC SURGEON MICROBIOLOGY - GENERAL ORDERABLES Final Result [facility] [address] [place] [address], [facility] [phone] [address], [facility] [phone] * (ABNORMAL) Blood Gas, Venous (04/04/2025 8:50 PM EDT) Only the most recent of3 resultswithin the time period is included. pH, Pankaj 7.451(H) 7.32 - 7.42 04/04/2025 8:50 PM EDT [facility] pCO2, Pankaj 42.7 39 - 55 mm Hg 04/04/2025 8:50 PM EDT [facility] PO2, Pankaj 57.5(H) 30.0 - 50.0 mm Hg 04/04/2025 8:50 PM [facility] HCO3, Venous 29.1 24.0 - 30.0 mmol/L 04/04/2025 8:50 PM EDT [facility] Positive Base Excess, Pankaj 4.6(H) 0.0 - 2.0 mmol/L 04/04/2025 8:50 PM [facility] O2 Sat, Pankaj 91.0(H) 60.0 - 85.0 % 04/04/2025 8:50 PM [facility] Pt Temp 37.0 04/04/2025 8:50 PM [facility] pH, Pankaj, Temp Adj 7.451(H) 7.320 - 7.420 04/04/2025 8:50 PM EDT [facility] pCO2, Pankaj, Temp Adj 42.7 39.0 - 55.0 mmHg 04/04/2025 8:50 PM [facility] pO2, Pankaj, Temp Adj 57.5(H) 30.0 - 50.0 mmHg 04/04/2025 8:50 PM [facility] O2 Device/Flow/% Cannula 04/04/2025 8:50 PM [facility] Junaid Test NOT APPLICABLE 04/04/2025 8:50 PM T [facility] [facility] 28 04/04/2025 8:50 PM [facility] 04/04/2025 8:50 PM EDT 04/04/2025 8:52 PM EDT us Joey Cornejo MD CHEMISTRY ORDERABLES Final Resul t [facility] [address] [phone] * CT CHEST PULMONARY EMBOLISM W CONTRAST [...] reflex to FT4 (04/04/2025 6:15 PM EDT) TSH 1.55 0.27 - 4.20 uIU/mL 04/04/2025 6:15 PM EDT [facility] Blood BLOOD SPECIMEN / Unknown 04/04/2025 6:15 PM EDT 04/04/2025 8:26 PM EDT Joey Cornejo MD CHEMISTRY ORDERABLES Final Resul t Performing Organization Address City/[facility]/ZIP Co de Phone Number [facility] [address] [place] [address] * Beta-Hydroxybutyrate (04/04/2025 6:15 PM EDT) Beta-Hydroxybut yrate 0.18 0.02 - 0.27 mmol/L 04/04/2025 6:15 PM EDT [facility] BLOOD SPECIMEN / Unknown 04/04/2025 6:15 PM EDT 04/04/2025 6:18 PM EDT Kym Espino DO CHEMISTRY ORDERABLES Final Result Performing Organization Address City/[facility]/ZIP Co de Phone Number [facility] [address] [place] [address] * (ABNORMAL) Hemoglobin A1C (04/04/2025 6:15 PM EDT) Hemoglobin A1C 12.7(H) 4.0 - 6.0 % 04/04/2025 6:15 PM EDT [employer] Estimated Avg Glucose 318 mg/dL 04/04/2025 6:15 PM EDT [employer] Comment: The ADA and AACC recommend providing the estimated average glucose result to permit better patient understanding of their HBA1c result. Blood BLOOD SPECIMEN / Unknown 04/04/2025 6:15 PM EDT 04/04/2025 6:57 PM EDT us Kym Espino DO CHEMISTRY ORDERABLES Final Result [facility] [address] [place] [address], [facility] [phone] [place] [id number] [place] [address], [facility] [phone] * Vascular duplex lower extremity venous bilateral [...] filling and normal phasic and spontaneous flow. [employer] Consultant Details A garcia scale, color Doppler imaging and spectral Doppler analysis ultrasound was performed. During the study longitudinal and transverse views were obtained. Continuous wave doppler and pulsed wave doppler was performed. Overall the study quality was adequate. Study was technically difficult due to: patient positioning. Kym Espino DO CV VASCULAR ORDERABLES Maureen l Result * EKG 12 Lead (04/04/2025 4:49 PM EDT) Only the most recent of3 resultswithin the time period is included. Pathologist [facility] Ventricular Rate 91 BPM [facility] Atrial Rate 91 BPM [facility] P-R Interval 202 ms [facility] QRS Duration 112 ms [facility] Q-T Interval 384 ms [facility] QTc Calculation (Bazett) 472 ms [facility] P Zillah 76 degrees [facility] R Zillah -2 degrees [facility] T Zillah 14 degrees [facility] 04/04/2025 4:49 PM EDT Narrative [facility] - 04/04/2025 11:59 PM EDT Normal [...] Espino DO ECG ORDERABLES Final Resul t [facility] * XR CHEST PORTABLE (04/04/2025 4:46 PM EDT) Only the most recent of2 resultswithin the time period is included. Anatomical Region Laterality Modality Chest Computed Radiogr [...] bilateral rib fractures. IMPRESSION: No acute abnormality. us Kym Espino DO [facility] ORDElena BA Final Result * D-Dimer, Quantitative (04/04/2025 4:25 PM EDT) Only the most recent of2 resultswithin the time period is included. D-Dimer, Quant 0.37 0.00 - 0.59 ug/mL FEU 04/04/2025 4:25 PM EDT [facility] Comment: When combined with a [...] 4:25 PM EDT 04/04/2025 4:34 PM EDT us Kym Espino DO HEMATOLOGY ORDERABLES Final Result [facility] [address] [phone] * (ABNORMAL) Basic Metabolic Panel (04/04/2025 4:25 PM EDT) Sodium 133(L) 136 - 145 mmol/L 04/04/2025 4:25 PM EDT [facility] Potassium 3.7 3.7 - 5.3 mmol/L 04/04/2025 4:25 PM [facility] Chloride 95(L) 98 - 107 mmol/L 04/04/2025 4:25 PM T [facility] CO2 24 20 - 31 mmol/L 04/04/2025 4:25 PM T [facility] Anion Gap 14 9 - 16 mmol/L 04/04/2025 4:25 PM T [facility] Glucose 563(HH) 74 - 99 mg/dL 04/04/2025 4:25 PM [facility] BUN 10 8 - 23 mg/dL 04/04/2025 4:25 PM [facility] Creatinine 0.7 0.70 - 1.20 mg/dL 04/04/2025 4:25 PM EDT [facility] Est, Gloneha Filt Rate >90 >60 mL/min/1.7 3m2 04/04/2025 4:25 PM EDT [facility] Comment: These results are not [...] 9 - 20 04/04/2025 4:25 PM EDT [facility] Calcium 8.7 8.6 - 10.4 mg/dL 04/04/2025 4:25 PM EDT [facility] Blood BLOOD SPECIMEN / Unknown 04/04/2025 4:25 PM EDT 04/04/2025 4:33 PM EDT Kym Espino DO CHEMISTRY ORDERABLES Final Result Performing Organization Address City/[facility]/ZIP Co de Phone Number [facility] [address] [place] [address] * Magnesium (03/19/2025 8:54 AM EDT) Magnesium 1.6 1.6 - 2.4 mg/dL 03/19/2025 8:54 AM EDT [facility] Blood BLOOD SPECIMEN / Unknown 03/19/2025 8:54 AM EDT 03/19/2025 8:59 AM EDT Nelly Carbajal MD CHEMISTRY ORDERABLES Final Res ult Performing Organization Address [facility]/ZIP Co de Phone Number [facility] [address] [place] [address] * (ABNORMAL) Comprehensive Metabolic Panel (03/19/2025 8:54 AM EDT) Sodium 139 136 - 145 mmol/L 03/19/2025 8:54 AM [facility] Potassium 3.0(L) 3.7 - 5.3 mmol/L 03/19/2025 8:54 AM [facility] Chloride 98 98 - 107 mmol/L 03/19/2025 8:54 AM [facility] CO2 31 20 - 31 mmol/L 03/19/2025 8:54 AM [facility] Anion Gap 10 9 - 16 mmol/L 03/19/2025 8:54 AM [facility] Glucose 195(H) 74 - 99 mg/dL 03/19/2025 8:54 AM [facility] BUN 10 8 - 23 mg/dL 03/19/2025 8:54 AM [facility] Creatinine 0.6(L) 0.70 - 1.20 mg/dL 03/19/2025 8:54 AM [facility] Est, Glom Filt Rate >90 >60 mL/min/1.7 3m2 03/19/2025 8:54 AM [facility] Comment: These results are not intended [...] that affects renal tubular secretion. BUN/Creatinine Ratio 17 9 - 20 03/19/2025 8:54 AM [facility] Calcium 9.1 8.6 - 10.4 mg/dL 03/19/2025 8:54 AM [facility] Total Protein 5.9(L) 6.6 - 8.7 g/dL 03/19/2025 8:54 AM [facility] Albumin 4.2 3.5 - 5.2 g/dL 03/19/2025 8:54 AM [facility] Albumin/Globulin Ratio 2.4 1.0 - 2.5 03/19/2025 8:54 AM EDT [facility] Total Bilirubin 0.6 0.00 - 1.20 mg/dL 03/19/2025 8:54 AM EDT [facility] Alkaline Phosphatase 89 40 - 129 U/L 03/19/2025 8:54 AM EDT [facility] ALT 42 10 - 50 U/L 03/19/2025 8:54 AM EDT [facility] AST 28 10 - 50 U/L 03/19/2025 8:54 AM EDT [facility] Blood BLOOD SPECIMEN / Unknown 03/19/2025 8:54 AM EDT 03/19/2025 8:59 AM EDT Nelly Carbajal MD CHEMISTRY ORDERABLES Final Res ult [facility] [address] [phone] from Last 3 Months Insurance MEDICARE [address] MEDICARE [place] [id number] Advance Directives * Full Code (Latest Code Status on File) Date Activated Date Inactivated Comments 04/04/2025 8:08 PM 04/06/2025 8:44 PM
--- OUTSIDE RECORDS SUMMARY | 2025-04-12 19:28 | XMS_ITS | Patient Health Record ---
Author Organization [facility] [place] Address [address] [place] [address] Care Team Providers Care Insurance Agency Sales Manager Name Role Phone None, Unknown or Primary Care Provider Unavailab YELITZA [facility] Unavailable [phone] Allergies No Known Allergies Reason For Referral No Information Medications Medication SIG (Take, Route, Frequency, Duration) Notes Start Date End Date Status hydroCHLOROthiazide 12.5 MG 1 tablet in the morning Orally Once a day for 30 days 02/04/2024 Active Losartan Potassium 100 MG 1 tablet Orall y Once a day Active Albuterol Sulfate (2.5 MG/3M L) 0.083% 3 mL as needed Inhalation every 6 hrs Active Breztri Aerosphere 160/9/4.8 mcg as directed inhalation 2 puffs BID for 30 days 02/04/2024 Active Potassium Chloride Maegan ER 2 0 MEQ TAKE ONE TABLET BY MOUTH ONCE DAILY Oral for 30 days Active Omeprazole 20 MG 1 capsule 30 minutes before morning meal Orally Once a day for 30 day(s) 02/04/2024 Active Losartan Potassium 25 MG 1 tablet Orally Once a day Active Social History Tobacco Use: Social History Observation Description Date Details (start date - stop date) Current Smoker 11/23/1966 - NA Tobacco Use/Smoking Question Answer Notes Patient is a current smoker When did you start smoking? 11/23/1966 Alcohol Screen (Audit-C) Question Answer Notes Did you have a drink contain ing alcohol in the past year? Yes How often did you have 6 or more drinks on one occasion in the past year? Never (0 point) How many drinks did you have on a typical day when you were drinking in the past year? 1 or 2 drinks (0 point) How often did you have a dri nk containing alcohol in the past year? Monthly (2 points) Points 2 Interpretation Negative Problems Problem Type SNOMED Code ICD Code Onset Dates Problem Status W/U Status Risk Notes Problem Shortness of breath (113639443) Shortness of breath (R06.02) Active confirmed Problem Hypoxemia (296399991) Hypoxemia (R09.02) Active confirmed Problem COPD - Chronic obstructive pulmonary disease (30843042) COPD (chronic obstructive pulmonary disease) (J44.9) Active confirmed Problem Gastroesophageal reflux disease (121702723) GERD (gastroesophage al reflux disease) (K21.9) Active confirmed Problem Arthritis (3316638) Arthritis (M19.90) Active confirmed Problem Obstructive sleep apnea (67980723) Obstructive sleep apnea (G47.33) Active confirmed Problem Acute exacerbation of chronic obstructive airways disease (160438935) COPD exacerbation (J44.1) Active confirmed Problem 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) Cigarette nicotine dependence with nicotine-induce d disorder (F17.219) Active confirmed Problem Iron deficiency anemia (49987224) Fe deficiency anemia (D50.9) Active confirmed Problem Leukocytosis (555430701) Elevated WBCs (D72.829) Active confirmed Problem Essential hypertension (06252517) BP (high blood pressure) (I10) Active confirmed Problem Type II diabetes mellitus without complication (690956737) Diabetes (E11.9) Active confirmed Plan Of Treatment No Information Insurance Providers Payer Name Payer Address Payer Phone Subscriber Number Group Number Insured Name Patient Relationship to Insured Coverage Start Date Coverage End Date ANTH MEDICARE ADV PLAN [address] [place] [phone] [id number] [id number] Nic Carrera Self - patient is the insured 3 Medical (General) History Medical History History ICD Code Arthritis M19.90 Kidney stones N20.0
--- OUTSIDE RECORDS SUMMARY | 2025-04-12 19:29 | XMS_ITS | CCD ---
Author Organization [facility] Care Team Providers Care Bottom Liquor Attendant Name Role Phone REQUEST, DR FLORA LISTED Primary Care Unavaila ble TIFFANY ., LEIA Admitting Unavailable TIFFANY ., LEIA Attending Unavailable CHINO ., ARABELLA Consulting Unavailable HOME BEAULIEU Consulting Unavailable PAY ., DR MIDDLETON Attending Unavailable PAY ., DR MIDDLETON Consulting Unavailable PAY ., DR MIDDLETON Admitting Unavailable REQUEST, DR HINES LISTED Primary Care Unavaila ble MARKER ., DR REDDING Attending Unavailable MARKER ., DR REDDING Consulting Unavailable MARKER ., DR REDDING Admitting Unavailable REQUEST, DR HINES LISTED Primary Care Unavaila ble GONSALO GRANGER Consulting Unavailable TAVARES, KENTRELL Admitting Unavailable TAVARES, KENTRELL Attending Unavailable TAVARES, KENTRELL Consulting Unavailable REQUEST, NONE LISTED Primary Care Unavaila ble NUNU MUNOZ Consulting Unavailable TIFFANY ., LEIA Admitting Unavailable GRECHNY ., PALMIRA FOX Consulting Unavailheriberto ALLEN .LEIA [...] ., DR SEBAS Parker Attending Unavailable REQUEST, DR HINES LISTED Primary Care Unavaila ble TAVARES, KENTRELL Consulting Unavailable REGINALDO LUCIO Consulting Unavailable TAVARES, KENTRELL Admitting Unavailable TAVARES, KENTRELL Attending Unavailable TAVARES, KENTRELL Consulting Unavailable REQUEST, DR HINES LISTED Primary Care Unavaila ble GIO HAYWOOD [...] REQUEST, NONE LISTED Primary Care Unavaila ble TIFFNAY ., LEIA Consulting Unavailable MARKER ., DR REDDING Attending Unavailable MARKER ., DR REDDING Consulting Unavailable MARKER ., DR REDDING Admitting Unavailable REQUEST, DR NONE LISTED Primary Care Unavaila ble ELKIN, GONSALO Consulting Unavailable KNOWLES, DR NASH Ribeiro Admitting Unavailable KNOWLES, DR NASH Ribeiro Attending Unavailable KNOWLES, DR NASH Ribeiro Consulting Unavailable REQUEST, NONE LISTED Primary Care Unavaila ble ACE, JUAN Consulting Unavailable REQUEST, DR NONE LISTED Primary Care Unavaila ble KATKO, DEMARCUS Cuellar Admitting Unavailable KATKO, DEMARCUS Cuellar Attending Unavailable Zieber, Yusef Consulting Unavailable KATKO, DEMARCUS Cuellar Consulting Unavailable [...] Admitting Unavailable TAVARES, KENTRELL Attending Unavailable REQUEST, NONE LISTED Primary Care Unavaila ble TAVARES, KENTRELL Consulting Unavailable TAVARES, KENTRELL Admitting Unavailable TAVARES, KENTRELL Attending Unavailable REQUEST, DR NONE LISTED Primary Care Unavaila ble SURESH, AMELIA Consulting Unavailable SHAMMO, OTONIEL Consulting Unavailable SHAMMO, OTONIEL Admitting Unavailable SHAMMO, OTONIEL Attending Unavailable REQUEST, DR NONE LISTED Primary Care Unavaila ble REQUEST, NONE LISTED Primary Care Unavaila ble AIMEE ., MYRA Admitting Unavailable AIMEE ., MYRA Attending Unavailable GRECHNY ., PALMIRA FOX Consulting UnavailREGINALDO Ferrell Consulting Unavailable SISTER, SIMONE Consulting Unavailable AIMEE ., MYRA Consulting Unavailable Unavailable Primary Care Provider Unavailheriberto e Trisha Rosa Attending Unavailable Meng Patricio Attending Unavaila ble AFSHAN THOMPSON Referring Unavail able MARCIANO MCDONOUGH Referring Unavailable RADHA MACEDO Attending Unavailable IACRADHA LAM Admitting Unavailable YUSEF MARQUEZ Consulting Unavailable CINTRAMARIA DEL ROSARIO Attending Unavailable Allergies Allergy Classification Reported Allergen(s) Allergy Type Date of Onset Reaction(s) Facility (1 source) Penicillin Drug Allergy [facility] Repository Medications Current Medications Medication Drug Class(es) Dates Sig (Normalized) Sig (Original) Acetaminophen (1 source) Start: 04-04-2025 acetaminophen (TYLENOL) tablet 650 mg albuterol 0.83 mg/ml inhalation solution (8 sources) beta2-Adrenergic Agonist Start: 04-06-2025 albuterol (PROVENTIL) (2.5 MG/3ML) 0.083% nebulizer solution Indications: COPD with acute exacerbation (HCC) Take 3 mLs by nebulization every 4 hours as needed for Wheezing 120 each 3 04/06/2025 Active Start: 04-05-2025 2.5 mg, Nebuli zation, EVERY 4 HOURS PRN, Starting on Thu04/05/25 at 0211, Until Discontinued, Wheezing, Initiate RT Bronchodilator Protocol: Yes - Inpatient Protocol Start: 04-04-2025 End: 04-05-2025 2.5 mg, Nebulization, 4 TIME S DAILY RESP, First dose on Thu04/04/25 at 2015, Until Discontinued, Initiate RT Bronchodilator Protocol: Yes - Inpatient Protocol Start: 04-04-2025 2.5 mg, Nebuli zation, EVERY 6 HOURS PRN, Starting on Thu04/04/25 at 1853, Until Discontinued, Wheezing, Initiate RT Bronchodilator Protocol: Yes - Inpatient Protocol Start: 03-19-2025 take 2 puff(s) by in halation four times daily as needed for wheezing albuterol sulfate HFA (VENTOLIN HFA) 108 (90 Base) MCG/ACT inhaler Inhale 2 puffs into the lungs 4 times daily as needed for Wheezing 18 g 03/19/2025 Active Start: 03-19-2025 take 2 puff(s) by in halation every six hours as needed 2 puff, Inhalation, EVERY 6 HOURS PRN, Starting on Thu03/19/25 at 1326, Until Discontinued, Wheezing, Initiate RT Bronchodilator Protocol: No aspirin 81 mg chewable tablet (2 sources) Platelet Aggregation Inhibitor, Nonsteroidal Anti-inflammatory Drug Start: 04-07-2025 take 1 tablet by mouth once daily aspirin 81 MG chewable tablet Take 1 tablet by mouth daily 30 tablet 3 04/07/2025 Active Start: 04-06-2025 take 81 mg by mouth once daily 81 mg, Oral, DAILY, First dose on Thu04/06/25 at 1215, Until Discontinued atorvastatin 40 mg oral tablet (2 sources) HMG-CoA Reductase Inhibitor Start: 04-06-2025 take 40 mg by mouth once daily 40 mg, Oral, NIGHTLY, First dose on Thu04/06/25 at 2100, Until Discontinued Start: 04-06-2025 take 1 tablet by danielle th once daily atorvastatin (LIPITOR) 40 MG tablet Take 1 tablet by mouth nightly 30 tablet 3 04/06/2025 Active azithromycin (ZITHROMAX) 500 mg in sodium chloride 0.9 % 250 mL IVPB ([id number]) (1 source) Start: 04-04-2025 End: 04-07-2025 500 mg, IntraVENous, EVERY 24 HOURS, 3 doses, First dose on Thu04/04/25 at 2014, Last dose on Thu04/06/25 at 2014, Antimicrobial Indications: COPD Exacerbation, COPD exacerbation duration of therapy: Other, Other COPD Exacerbation Duration: 3 days, Use 20mm (Blue) [id number] Adapter Preparation instructions: Attach medication vial to one 20mm (Blue) [id number] adapter. Kenneth fluid bag with adapter, mix, and administer per order. cefTRIAXone (ROCEPHIN) 1,000 mg in sterile water 10 mL IV syringe (1 source) Start: 04-04-2025 End: 04-09-2025 take 100 mg intravenously every twenty-four hours 1,000 mg, IntraVENous, EVERY 24 HOURS, First dose on Thu04/04/25 at 2014, For 5 days, Administer as slow IV Push over 5 mins Reconstitute 1 g vials with 9.6 mL of designated diluent to produce a 100 mg/mL solution. doxycycline hyclate 100 mg oral tablet (1 source) Tetracycline-clas s Drug Start: 04-06-2025 End: 04-11-2025 take 1 tablet by mouth twice daily doxycycline hyclate (VIBRA-TABS) 100 MG tablet Take 1 tablet by mouth 2 times daily for 5 days 10 tablet 04/06/2025 04/11/2025 Active glipiZIDE 5 mg oral tablet (2 sources) Sulfonylurea Start: 04-07-2025 take 1 tablet by mouth once daily before breakfast glipiZIDE (GLUCOTROL) 5 MG tablet Take 1 tablet by mouth every morning (before breakfast) 60 tablet 3 04/07/2025 Active Start: 04-06-2025 5 mg, Oral, DA HIEU BEFORE BREAKFAST, First dose on Paige 04/06/25 at 0700, Until Discontinued, Substituted for glyburide (DIABETA). glucagon (rdna) 1 mg injection (1 source) Antihypoglycemic Agent Start: 04-04-2025 1 mg, I ntraMUSCular, PRN, Starting on Thu04/04/25 at 2007, Until Discontinued, Low blood sugar, Blood glucose less than 70 mg/dL and patient NOT ALERT or NPO and does not have IV access., After administration, attempt intravenous access and start D5W at 100 mL/hr. Repeat blood glucose in 15 minutes x2 and notify provider. Reconstitute powder for injection by adding 1 mL of glue bone crusher-supplied sterile diluent or sterile water for injection to a vial containing 1 mg of the drug, to provide solutions containing 1 mg/mL. Shake vial gently to dissolve. Glucose (3 sources) Start: 04-04-2025 IntraVENous, a t 100 mL/hr, CONTINUOUS PRN, if blood glucose [...] after 60 minutes, discontinue dextrose 10% infusion. Start: 04-04-2025 dextrose bolus 10% 125 mL Start: 04-04-2025 16 g (4 tablet ), Oral, PRN, Starting on Thu04/04/25 at 2007, Until Discontinued, Low blood sugar, If blood glucose is LESS THAN 70 mg/dL and patient is alert and tolerating oral. Give 4 tablets (16g) Repeat blood glucose in 15 minutes. If blood glucose is LESS THAN 70 mg/dL, repeat treatment and recheck blood glucose in 15 minutes x 2. If blood glucose remains LESS THAN 70 mg/dL, notify provider. hydroCHLOROthiazide 25 mg / losartan potassium 100 mg oral tablet (1 source) Thiazide Diuretic, Angiotensin 2 Receptor Rudy Start: 04-06-2025 take 1 tablet by mouth once daily losartan-hydroCHLOROthiazide (HYZAAR) 100-25 MG per tablet Take 1 tablet by mouth daily 30 tablet 5 04/06/2025 Active metFORMIN hydrochloride 500 mg oral tablet (3 sources) Biguanide Start: 04-05-2025 take 1 tablet by mouth twice daily at mealtime metFORMIN (GLUCOPHAGE) 500 MG tablet Take 1 tablet by mouth 2 times daily (with meals) 60 tablet 3 04/06/2025 Active Start: 04-04-2025 take 1 dose by mouth once 500 mg, Oral, Once, 1 dose, On Thu04/04/25 at 2000 methylPREDNISolone sodium succ (SOLU-MEDROL) 40 mg in sterile water 1 mL injection (1 source) Start: 04-05-2025 End: 04-07-2025 methylPREDNISolone sodium succ (SOLU-MEDROL) 40 mg in sterile water 1 mL injection 24 hr metoprolol succinate 25 mg extended release oral tablet (3 sources) beta-Adrener gic Rudy Start: 04-07-2025 take 1 tablet by mouth once daily metoprolol succinate (TOPROL XL) 25 MG extended release tablet Take 1 tablet by mouth daily 30 tablet 3 04/07/2025 Active Start: 04-05-2025 take 25 mg by mouth once daily 25 mg, Oral, DAILY, First dose on Thu04/05/25 at 1630, Until Discontinued, Do not crush or chew. Start: 03-19-2025 End: 03-19-2025 5 mg, IntraVENous, ONCE, 1 d ose, On 03/19/25 at 1145 mupirocin 0.02 mg/mg topical ointment (3 sources) RNA Synthetase Inhibitor Antibacterial Start: 05-13-2021 mupirocin (BACTROBAN) 2 % ointment Apply topically 3 times daily for 5 days. 22 g 05/13/2021 Active omeprazole 10 mg delayed release oral capsule (3 sources) Proton Pump Inhibitor take 1 capsule by mouth once daily omeprazole (PRILOSEC) 10 MG delayed release capsule Take 1 capsule by mouth daily Active ondansetron (ZOFRAN-ODT) disintegrating tablet 4 mg (1 source) Start: 04-04-2025 ondansetron (ZOFRAN-ODT) disintegrating tablet 4 mg predniSONE 20 mg oral tablet (2 sources) Start: 04-06-2025 End: 04-11-2025 take 1 tablet by mouth twice daily predniSONE (DELTASONE) 20 MG tablet Take 1 tablet by mouth 2 times daily for 5 days 10 tablet 04/06/2025 04/11/2025 Active Start: 03-19-2025 End: 03-24-2025 take 1 tablet by mouth once daily predniSONE (DELTASONE) 50 MG tablet Take 1 tablet by mouth daily for 5 days 5 tablet 03/19/2025 03/24/2025 Active Completed/Discontinued Medications Medication Drug Class(es) Dates Sig (Normalized) Sig (Original) albuterol 0.833 mg/ml / ipratropium bromide 0.167 mg/ml inhalation solution (3 sources) Anticholinergic, beta2-Adrenergic Agonist Start: 04-05-2025 take 1 dose by inhalation four times daily 1 Dose, Inhalation, 4 times daily, First dose (after last modification) on Thu04/05/25 at 0600, Until Discontinued, Initiate RT Bronchodilator Protocol: Yes - Inpatient Protocol Start: 04-04-2025 End: 04-04-2025 take 1 dose by inhalation once 1 Dose, Inhalation, Onc e, 1 dose, On Thu04/04/25 at 1630, Initiate RT Bronchodilator Protocol: Yes - Inpatient Protocol Start: 03-19-2025 End: 03-19-2025 3 Dose, Inhalation, Once, 1 dose, On Thu03/19/25 at 0900, Initiate RT Bronchodilator Protocol: No benzonatate 100 mg oral capsule (1 source) Non-narcotic Antitussive Start: 04-04-2025 take 100 mg by mouth three times daily as needed 100 mg, Oral, 3 TIMES DAILY PRN, Starting on Thu04/04/25 at 2005, Until Discontinued, Cough dextromethorphan hydrobromide 2 mg/ml / guaiFENesin 20 mg/ml oral suspension (1 source) Uncompetitive J-vwtaxr-S-aspart ate Receptor Antagonist, Sigma-1 Agonist Start: 04-04-2025 take 5 mL by mouth every four hours as needed 5 mL, Oral, EVERY 4 HOURS PRN, Starting on Thu04/04/25 at 2005, Until Discontinued, Cough 0.4 ml enoxaparin sodium 100 mg/ml prefilled syringe (1 source) Low Molecular Weight Heparin Start: 04-04-2025 inject 40 mg by subcutaneous injection once daily 40 mg, SubCUTAneous, DAILY, First dose on Thu04/04/25 at 2345, Until Discontinued, Indication of Use: Prophylaxis-DVT/P E, Administer by deep subCUTAneous injection with pt lying down. Alternate injection sites on abdominal wall. Do not rub site after injection. Check with provider prior to any invasive procedure. 12 hr guaiFENesin 600 mg extended release oral tablet (1 source) Start: 04-04-2025 take 600 mg by mouth twice daily 600 mg, Oral, 2 TIMES DAILY, First dose on Thu04/04/25 at 2100, Until Discontinued, Do not crush or break. 1 ml hydrALAZINE hydrochloride 20 mg/ml injection (3 sources) Arteriolar Vasodilator Start: 04-04-2025 10 mg, IntraVENous, EVERY 4 HOURS PRN, Starting on Thu04/04/25 at 2008, Until Discontinued, SBP > 150 Start: 04-04-2025 End: 04-04-2025 10 mg, IntraVENous, ONCE, 1 dose, On Thu04/04/25 at 2000 Start: 03-19-2025 End: 03-19-2025 10 mg, IntraVENous, ONCE, 1 dose, On Thu03/19/25 at 0945 hydroCHLOROthiazide 25 mg oral tablet (1 source) Thiazide Diuretic Start: 04-06-2025 take 25 mg by mouth once daily 25 mg, Oral, DAILY, First dose on Thu04/06/25 at 1630, Until Discontinued insulin lispro 100 unt/ml injectable solution (1 source) Insulin Analog Start: 04-04-2025 0-16 Units, SubCUTAneous, 4 TIMES DAILY BEFORE MEALS & NIGHTLY, First dose on Thu04/04/25 at 2100, Until Discontinued, High Dose Corrective Algorithm Glucose: Dose: 70-179 No Insulin 180-249 4 Units 250-299 8 Units 300-349 12 Units Over 349 16 Units and notify physician Administer as soon as possible within 60 minutes of last blood glucose check iopamidol (ISOVUE-370) 76 % injection 75 mL (1 source) Start: 04-04-2025 End: 04-04-2025 take 1 dose intravenously once 75 mL, IntraVENous, IMG ONCE PRN, 1 dose, Starting on Thu04/04/25 at 1855, Until Thu04/04/25 at 1903, Other labetalol hydrochloride 5 mg/ml injectable solution (1 source) beta-Adrenerg ic Rudy Start: 04-04-2025 End: 04-04-2025 10 mg, IntraVENous, ONCE, 1 dose, On Thu04/04/25 at 1900 Start: 04-04-2025 End: 04-04-2025 10 mg, IntraVENous, ONCE, 1 dose, On Thu04/04/25 at 1900 losartan potassium 50 mg oral tablet (3 sources) Angiotensin 2 Receptor Rudy Start: 04-05-2025 take 100 mg by mouth once daily 100 mg, Oral, DAILY, First dose on Thu04/05/25 at 0100, Until Discontinued End: 04-06-2025 take 1 tablet by mouth once daily losartan (COZAAR) 100 MG tablet Take 1 tablet by mouth daily 04/06/2025 Discontinued (Stop Taking at Discharge) methylPREDNISolone sodium succ (SOLU-MEDROL) 125 mg in sterile water 2 mL injection (1 source) Start: 04-04-2025 End: 04-04-2025 125 mg, IntraVENous, ONCE, On Thu04/04/25 at 2015, For 1 dose, Reconstitute 125 mg vial with 2 mL diluent. methylPREDNISolone sodium succ (SOLU-MEDROL) 60 mg in sterile water 0.96 mL injection (1 source) Start: 03-19-2025 End: 03-19-2025 60 mg, IntraVENous, ONCE, On Thu03/19/25 at 1315, For 1 dose, Reconstitute 125 mg vial with 2 mL diluent. 1 ml morphine sulfate 2 mg/ml cartridge (1 source) Opioid Agonist Start: 04-04-2025 End: 04-04-2025 take 1 dose by mouth every hour 2 mg, IntraVENous, ONCE, 1 dose, On Thu04/04/25 at 2100, If oral and IV narcotics ordered, use oral first and only use IV if oral is ineffective or cannot take oral. Do Not give oral and IV within 1 hour of each other unless specifically ordered. Start: 04-04-2025 End: 04-04-2025 take 1 dose by mouth every hour 2 mg, IntraVENous, ONCE, 1 dose, On Thu04/04/25 at 2100, If oral and IV narcotics ordered, use oral first and only use IV if oral is ineffective or cannot take oral. Do Not give oral and IV within 1 hour of each other unless specifically ordered. niCARdipine (CARDENE) 25 mg in sodium chloride 0.9 % 250 mL infusion ([id number]) (1 source) Start: 04-04-2025 End: 04-05-2025 2.5-15 mg/hr (25-150 mL/hr), IntraVENous, CONTINUOUS, Starting [...] used to maintain goal. Use 20mm (Blue) [id number] Adapter Preparation instructions: Attach medication vial to one 20mm (Blue) [id number] adapter. Kenneth fluid bag with adapter, mix, and administer per order. polyethylene glycol 3350 43868 mg powder for oral solution (1 source) Osmotic Laxative Start: 04-04-2025 17 g, Oral, DAILY PRN, Starting on Thu04/04/25 at 2002, Until Discontinued, Constipation, First line therapy for constipation microencapsulated potassium chloride 20 meq extended release oral tablet (1 source) Start: 03-19-2025 End: 03-19-2025 40 mEq, Oral, ONCE, 1 dose, On Thu03/19/25 at 0945, Do not crush or break. Do not crush, chew, or suck on tablet. Tablet may also be broken in half and each half swallowed separately. regadenoson (LEXISCAN) injection 0.4 mg (1 source) Start: 04-06-2025 End: 04-06-2025 take 0.4 mg intravenously once as needed 0.4 mg, IntraVENous, IMG ONCE PRN, 1 dose, Starting on Paige 04/06/25 at 1206, Until Paige 04/06/25 at 1210, Other 1000 ml sodium chloride 9 mg/ml injection (5 sources) Start: 04-04-2025 IntraVENous, at 5-250 mL/hr, PRN, if patient [...] 100 mL/hr into rate field of order. Start: 04-04-2025 5-40 mL, Intra VENous, EVERY 12 HOURS SCHEDULED (2 times per [...] Midline or Central Line = 20 mL/lumen Start: 04-04-2025 5-40 mL, Intra VENous, PRN, Starting on Thu04/04/25 at 2001, Until Discontinued, Line Care, After every IV line use, [...] Midline or Central Line = 20 mL/lumen Start: 04-04-2025 End: 04-04-2025 IntraVENous, at 75 mL/hr, CO NTINUOUS, Starting on Thu04/04/25 at 2014, For 24 hours, Complete last bag that is running at 24 hours and then saline lock IV technetium sestamibi (CARDIOLITE) injection 10 millicurie (1 source) Start: 04-06-2025 End: 04-06-2025 take 1 dose intravenously once 10 millicurie, IntraVENous, IMG ONCE PRN, 1 dose, Starting on Thu04/06/25 at 1048, Until Paige 04/06/25 at 1122, Other technetium sestamibi (CARDIOLITE) injection 30 millicurie (1 source) Start: 04-06-2025 End: 04-06-2025 take 1 dose intravenously once 30 millicurie, IntraVENous, IMG ONCE PRN, 1 dose, Starting on Thu04/06/25 at 1048, Until Thu04/06/25 at 1122, Other Problems Active Problems Problem Classification Problem Date Documented Da te Episodic/Chronic Alcohol-related disorders (2 sources) Alcohol abuse, uncomplicated; Translations: [Alcoholic hepatitis without ascites] Onset: 03-24-2023 Chronic Asthma (1 source) Unspecified asthma, uncomplicated; Translations: [UNSPECIFIED ASTHMA UNCOMPLICATED] Onset: 10-01-2022 Chronic Chronic obstructive pulmonary disease and bronchiectasis (12 sources) Centrilobular emphysema; Translations: [Emphysema, unspecified] Onset: 11-27-2022 03-19-2025 Chronic Coronary atherosclerosis and other heart disease (5 sources) Coronary arteriosclerosis; Translations: [Atherosclerotic heart disease of [place] coronary artery without angina pectoris] Onset: 04-06-2025 04-06-2025 Chronic Diabetes mellitus without complication (6 sources) Newly diagnosed diabetes; Translations: [Type 2 diabetes mellitus without complications] Onset: 04-04-2025 04-04-2025 Chronic Diabetes mellitus without complication (1 source) Other abnormal glucose; Translations: [OTHER ABNORMAL GLUCOSE] Onset: 04-02-2023 Episodic Disorders of lipid metabolism (3 sources) Hyperlipidemia; Translations: [Hyperlipidemia, unspecified] Onset: 04-06-2025 04-06-2025 Chronic Esophageal disorders (1 source) Gastro-esophageal reflux disease without esophagitis; Translations: [GERD WITHOUT ESOPHAGITIS] Onset: 04-07-2023 Chronic Essential hypertension (6 sources) Essential (primary) hypertension; Translations: [Essential hypertension] Onset: 04-07-2023 03-19-2025 Chronic Hyperplasia of prostate (1 source) Benign prostatic hyperplasia without lower urinary tract symptoms; Translations: [BENIGN PROSTATIC HYPRPLASIA WO LUTS] Onset: 04-01-2023 Chronic Hypertension with complications and secondary hypertension (8 sources) Hypertensive urgency ; Translations: [Hypertensive urgency] Onset: 04-06-2025 04-04-2025 Chronic Nonspecific chest pain (4 sources) Other chest pain; Translations: [OTHER CHEST PAIN] Onset: 03-27-2023 Episodic Other aftercare (1 source) Other chcf (current) drug therapy; Translations: [OTH PREPARATOR CURRENT DRUG THERAPY] Onset: 04-07-2023 Episodic Other [...] Onset: 04-07-2023 Episodic Other lower respiratory disease (5 sources) Shortness of breath; Translations: [SHORTNESS OF BREATH] Onset: 01-02-2023 Episodic Other lower respiratory disease (1 source) Hypoxia; Translations: [Hypoxemia] 04-04-2025 Episodic Other lower respiratory disease (1 source) Dyspnea; Translations: [Shortness of breath] 04-04-2025 Episodic Other lower respiratory disease (1 source) Hypoxemia; Translations: [Hypoxemia] Onset: 04-04-2025 Episodic Other screening for suspected conditions (not mental disorders or infectious disease) (5 sources) Cardiovascular stress test abnormal; Translations: [Abnormal result of other cardiovascular function study] Onset: 04-06-2025 04-06-2025 Episodic Meme-; endo-; and myocarditis; cardiomyopathy (except that caused by tuberculosis or sexually transmitted disease) (5 sources) Primary cardiomyopathy; Translations: [Cardiomyopathy, unspecified] Onset: 04-04-2025 04-06-2025 Chronic Residual codes; unclassified (1 source) Sleep apnea, [...] UNDERDOS MED OTH REASON] Onset: 03-24-2023 Episodic Respiratory failure; insufficiency; arrest (adult) (3 sources) Acute respiratory failure; Translations: [Acute respiratory failure with hypoxia] Onset: 04-04-2025 04-04-2025 Episodic Skin and subcutaneous tissue infections (2 [...] [CANNABIS USE UNS UNCOMPLICATED] Onset: 12-29-2022 Episodic Unclassified (3 sources) Onset: 05-13-2021 05-13-2021 Results Test Name Value Interpretation Reference Range Facility Lipid Profileon 04-07-2025 Cholesterol [Mass/Vol] 121 mg/dL Normal 0-199 [facility] Comment on above: Result Comment: Cholesterol Guidelines: <200 Desirable 200-240 Borderline >240 Undesirable Performed By: #### L IPR ####[id number] [place] [address] Lab Director: Dariel Mora MD Cholesterol in HDL [Mass/Vol] 68 mg/dL Normal >40 [facility] Comment on above: Result Comment: HDL Guidelines: <40 Undesirable 40-59 Borderline >59 Desirable Performed By: #### L IPR ####[address] [address] Lab Director: Dariel Mora MD Cholesterol in LDL [Mass/Vol] 42 mg/dL Normal 0-100 [facility] Comment on above: Result Comment: LDL Guidelines: <100 Desirable 100-129 Near to/above Desirable 130-159 Borderline >159 Undesirable Direct (measured) LDL and calculated LDL are not interchangeable tests. Performed By: #### L IPR ####[facility] [address] [place] [address] [phone] Director: Dariel Mora MD Cholesterol in VLDL [Mass/Vol] 11 mg/dL Normal 1-30 [facility] Comment on above: Performed By: #### L IPR ####[facility] [address] [place] [id number] Lab Director: Dariel Mora MD Cholesterol.total/Cho lesterol in HDL [Mass ratio] 1.8 {ratio} Normal <5.0 [facility] Comment on above: Performed By: #### L IPR ####[facility] [id number] [place] [address] Lab Director: Dariel Mora MD Triglyceride [Mass/Vol] 53 mg/dL Normal <150 [facility] Comment on above: Result Comment: Triglyceride Guidelines: <150 Desirable 150-199 Borderline 200-499 High >499 Very high Based on AHA Guidelines for fasting triglyceride, August 2012. Performed By: #### L IPR ####[facility] [address] [place] [address] [id number] Lab Director: Dariel Mora MD Brain Natri. Peptideon 04-06 Natriuretic peptide B (Bld) [Mass/Vol] 780 pg/mL High 0-125 [facility] Comment on above: Performed By: #### P RCAL #### [facility] [place] [id number] Viscosity Inspector: Dariel Mora MD Brain Natriuretic Peptideon 04-06-2025 Interpretation and review of laboratory results Abnormal [facility] Natriuretic peptide B (Bld) [Mass/Vol] 780 pg/mL High 0 - 125 pg/mL [facility] C-Reactive Proteinon 025 CRP High sensitivity method [Mass/Vol] mg/L 0.0 - 5.0 mg/L [facility] CRP [Mass/Vol] mg/L Normal 0.0-5.0 [facility] Comment on above: Performed By: #### P RCAL #### [employer] [address] [place], [place] [id number] Viscosity Inspector: Dariel Mora MD CBC with Auto Differentialon 04-06-2025 Basophils (Bld) [#/Vol] [facility] Basophils/100 WBC (Bld) 0 % 0 - 2 % [facility] Eosinophils (Bld) [#/Vol] 0.05 10*3/uL [facility] Eosinophils/100 WBC (Bld) 0 % Low 1 - 4 % [facility] Erythrocyte distribution width (RBC) [Ratio] 13.6 % 11.8 - 14.4 % [facility] Hematocrit (Bld) [Volume fraction] 40.2 % Low 40.7 - 50.3 % [facility] Hemoglobin (Bld) [Mass/Vol] 13.8 g/dL 13.0 - 17.0 g/dL [facility] Immature granulocytes (Bld) [#/Vol] 0.05 10*3/uL [facility] Immature granulocytes/100 WBC (Bld) 0 % 0 [facility] Interpretation and review of laboratory results Abnormal [facility] Lymphocytes/100 WBC (Bld) 7 % Low 24 - 43 % [facility] Lymphocytes/100 WBC (Bld) 0.96 % Low [facility] MCH (RBC) [Entitic mass] 30 pg 25.2 - 33.5 pg [facility] MCHC (RBC) [Mass/Vol] 34.3 g/dL 28.4 - 34.8 g/dL [facility] MCV (RBC) [Entitic vol] 87.4 fL 82.6 - 102.9 fL [facility] Monocytes/100 WBC (Bld) 3 % 3 - 12 % [facility] Monocytes/100 WBC (Bld) 0.36 % [facility] Neutrophils/100 WBC (Bld) 90 % High 36 - 65 % [facility] Nucleated RBC/100 WBC (Bld) [Ratio] 0 % 0.0 per 100 WBC [facility] Platelet mean volume (Bld) [Entitic vol] 9.4 fL 8.1 - 13.5 fL [facility] Platelets (Bld) [#/Vol] 239 10*3/uL [facility] RBC (Bld) [#/Vol] 4.6 10*6/uL 4.21 - 5.7 7 m/uL [facility] Segmented neutrophils/100 WBC (Bld) 12.39 % High [facility] WBC other (Bld) [#/Vol] 13.[address] [facility] CBC with Diffon 04-06-2025 Abs. Basophil <0.03 Normal 0.00-0.20 [facility] Comment on above: Performed By: #### P RCAL #### [facility] [address] [place] [address] Viscosity Inspector: Dariel Mora MD Abs.Imm.Granulocyte 0.05 k/uL Normal 0.00-0.30 [facility] Comment on above: Performed By: #### P RCAL #### [facility] [employer] [address] [place] [address] Viscosity Inspector: Dariel Mora MD Abs.Neutrophil (Seg) 12.39 k/uL High 1.50-8.10 [facility] Comment on above: Performed By: #### P RCAL #### [place] [address] Viscosity Inspector: Dariel Mora MD Basophils/100 WBC (Bld) 0 % Normal 0-2 [facility] Comment on above: Performed By: #### P RCAL #### [place] [address] Viscosity Inspector: Dariel Mora MD Eosinophils (Bld) [#/Vol] 0.05 10*3/uL Normal 0.00-0.44 [facility] Comment on above: Performed By: #### P RCAL #### [place] [address] Viscosity Inspector: Dariel Mora MD Eosinophils/100 WBC (Bld) 0 % Low 1-4 [facility] Comment on above: Performed By: #### P RCAL #### [place] [address] Viscosity Inspector: Dariel Mora MD Erythrocyte distribution width (RBC) [Ratio] 13.6 % Normal 11.8-14.4 [facility] Comment on above: Performed By: #### P RCAL #### [place] [address] Viscosity Inspector: Dariel Mora MD Hematocrit (Bld) [Volume fraction] 40.2 % Low 40.7-50.3 [facility] Comment on above: Performed By: #### P RCAL #### [place] [address] Viscosity Inspector: Dariel Mora MD Hemoglobin (Bld) [Mass/Vol] 13.8 g/dL Normal 13.0-17.0 [facility] Comment on above: Performed By: #### P RCAL #### [address] [address] Viscosity Inspector: Dariel Mora MD Immature granulocytes/100 WBC (Bld) 0 % Normal 0 [facility] Comment on above: Performed By: #### P RCAL #### [address] [address] Viscosity Inspector: Dariel Mora MD Lymphocytes (Bld) [#/Vol] 0.96 10*3/uL Low 1.10-3.70 [facility] Comment on above: Performed By: #### P RCAL #### [place] [address] Viscosity Inspector: Dariel Mora MD Lymphocytes/100 WBC (Bld) 7 % Low 24-43 [facility] Comment on above: Performed By: #### P RCAL #### [place] [address] Viscosity Inspector: Dariel Mora MD MCH (RBC) [Entitic mass] 30.0 pg Normal 25.2-33.5 [facility] Comment on above: Performed By: #### P RCAL #### [place] [address] Viscosity Inspector: Dariel Mora MD MCHC (RBC) [Mass/Vol] 34.3 g/dL Normal 28.4-34.8 [facility] Comment on above: Performed By: #### P RCAL #### [place] [address] Viscosity Inspector: Dariel Mora MD MCV (RBC) [Entitic vol] 87.4 fL Normal 82.6-102.9 [facility] Comment on above: Performed By: #### P RCAL #### [address] [address] Viscosity Inspector: Dariel Mora MD Monocytes (Bld) [#/Vol] 0.36 10*3/uL Normal 0.10-1.20 [facility] Comment on above: Performed By: #### P RCAL #### [address] [address] Viscosity Inspector: Dariel Mora MD Monocytes/100 WBC (Bld) 3 % Normal 3-12 [facility] Comment on above: Performed By: #### P RCAL #### [address] [address] Viscosity Inspector: Dariel Mora MD Neutrophil (Seg) 90 % High 36-65 [facility] Comment on above: Performed By: #### P RCAL #### [address] [address] Viscosity Inspector: Dariel Mora MD NRBC Automated 0.0 per 100 WBC Normal 0.0 [facility] Comment on above: Performed By: #### P RCAL #### [address] [address] Viscosity Inspector: Dariel Mora MD Platelet mean volume (Bld) [Entitic vol] 9.4 fL Normal 8.1-13.5 [facility] Comment on above: Performed By: #### P RCAL #### [address] [address] Viscosity Inspector: Dariel Mora MD Platelets (Bld) [#/Vol] 239 10*3/uL Normal 138-453 [facility] Comment on above: Performed By: #### P RCAL #### [address] [address] Viscosity Inspector: Dariel Mora MD RBC (Bld) [#/Vol] 4.60 10*6/uL Normal 4.21-5.77 [facility] Comment on above: Performed By: #### P RCAL #### [address] [address] Viscosity Inspector: Dariel Mora MD WBC (Bld) [#/Vol] 13.8 10*3/uL High 3.5-11.3 [facility] Comment on above: Performed By: #### P RCAL #### [employer] [address] [place], [place] [id number] Viscosity Inspector: Dariel Mora MD Cardiac procedureon 04-06-20 25 Body surface area Derived from formula 1.91 m2 [facility] - Coronary Angiography Brief Post Operative Note: Mild coronary artery disease without any significant focal stenosis. Normal left ventricular end diastolic pressure (LVEDP). 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 Normal left ventricular end [...] Risk Calculator Bleeding Risk points = 0. BS CV CPACS HEMO [facility] Radiology Study observation (narrative) [facility] Comp Metabolic Pr/rfx MGon 0 - Albumin [Mass/Vol] 3.7 g/dL Normal 3.5-5.2 [facility] Comment on above: Performed By: #### P RCAL #### [employer] [address] [place] [address] Viscosity Inspector: Dariel Mora MD Albumin/Glob Ratio 2.1 Normal 1.0-2.5 [facility] Comment on above: Performed By: #### P RCAL #### [employer] [address] [place], [place] [id number] Viscosity Inspector: Dariel Mora MD Alkaline Phos 71 U/L Normal 40-129 [facility] Comment on above: Performed By: #### P RCAL #### [employer] [address] [place], [place] [id number] Viscosity Inspector: Dariel Mora MD ALT [Catalytic activity/Vol] 35 U/L Normal 10-50 [facility] Comment on above: Performed By: #### P RCAL #### [facility] [address] [place] [address] Viscosity Inspector: Dariel Mora MD Anion gap [Moles/Vol] 11 mmol/L Normal 9-16 [facility] Comment on above: Performed By: #### P RCAL #### [address] [address] Viscosity Inspector: Dariel Mora MD AST [Catalytic activity/Vol] 24 U/L Normal 10-50 [facility] Comment on above: Performed By: #### P RCAL #### [address] [address] Viscosity Inspector: Dariel Mora MD Bilirubin [Mass/Vol] 0.3 mg/dL Normal 0.00-1.20 [facility] Comment on above: Performed By: #### P RCAL #### [address] [address] Viscosity Inspector: Dariel Mora MD BUN/CRE Ratio 26 High 9-20 [facility] Comment on above: Performed By: #### P RCAL #### [address] [address] Viscosity Inspector: Dariel Mora MD Calcium [Mass/Vol] 8.5 mg/dL Low 8.6-10.4 [facility] Comment on above: Performed By: #### P RCAL #### [address] [address] Viscosity Inspector: Dariel Mora MD Chloride [Moles/Vol] 96 mmol/L Low 98-107 [facility] Comment on above: Performed By: #### P RCAL #### [address] [address] Viscosity Inspector: Dariel Mora MD CO2 [Moles/Vol] 27 mmol/L Normal 20-31 [facility] Comment on above: Performed By: #### P RCAL #### [facility] [employer] [address] [place] [address] Viscosity Inspector: Dariel Mora MD Creatinine [Mass/Vol] 0.8 mg/dL Normal 0.70-1.20 [facility] Comment on above: Performed By: #### P RCAL #### [address] [address] Viscosity Inspector: Dariel Mora MD GFR/1.73 sq M.predicted among non-blacks MDRD (S/P/Bld) [Vol rate/Area] mL/min/{1.73_m2} Normal >60 [facility] Comment on above: Result Comment: These results are not intended for [...] following therapy that affects renal tubular secretion. Performed By: #### P RCAL #### [facility] [employer] [address] [place] [address] Viscosity Inspector: Dariel Mora MD Glucose [Mass/Vol] 346 mg/dL High 74-99 [facility] Comment on above: Performed By: #### P RCAL #### [facility] [employer] [address] [place] [address] Viscosity Inspector: Dariel Mora MD Potassium [Moles/Vol] 3.9 mmol/L Normal 3.7-5.3 [facility] Comment on above: Performed By: #### P RCAL #### [facility] [employer] [address] [place] [address] Viscosity Inspector: Dariel Mora MD Protein [Mass/Vol] 5.4 g/dL Low 6.6-8.7 [facility] Comment on above: Performed By: #### P RCAL #### [facility] [address] [place], [place] [id number] Viscosity Inspector: Dariel Mora MD Sodium [Moles/Vol] 134 mmol/L Low 136-145 [facility] Comment on above: Performed By: #### P RCAL #### [facility] [address] [place], [place] [id number] Viscosity Inspector: Dariel Mora MD Urea nitrogen [Mass/Vol] 21 mg/dL Normal 8-23 [facility] Comment on above: Performed By: #### P RCAL #### [facility] [address] [place], [place] [id number] Viscosity Inspector: Dariel Mora MD Comprehensive Metabolic Pane l w/ Reflex to MGon 04-06-2025 Albumin [Mass/Vol] 3.7 g/dL 3.5 - 5.2 g/dL [facility] Albumin/Globulin [Mass ratio] 2.1 {ratio} 1.0 - 2.5 [facility] ALP [Catalytic activity/Vol] 71 U/L 40 - 129 U/L [facility] ALT [Catalytic activity/Vol] 35 U/L 10 - 50 U/L [facility] Anion gap [Moles/Vol] 11 mmol/L 9 - 16 mmol/L [facility] AST [Catalytic activity/Vol] 24 U/L 10 - 50 U/L [facility] Bilirubin [Mass/Vol] 0.3 mg/dL 0.00 - 1.20 mg/dL [facility] Calcium [Mass/Vol] 8.5 mg/dL Low 8.6 - 10. 4 mg/dL [facility] Chloride [Moles/Vol] 96 mmol/L Low 98 - 10 7 mmol/L [facility] CO2 [Moles/Vol] 27 mmol/L 20 - 31 mmol/L [facility] Creatinine [Mass/Vol] 0.8 mg/dL 0.70 - 1.20 mg/dL [facility] Est, Glom Filt Rate - PINF [facility] Comment on above: These results are not intended for use [...] following therapy that affects renal tubular secretion. Glucose [Mass/Vol] 346 mg/dL High 74 - 99 mg/dL [facility] Interpretation and review of laboratory results Abnormal [facility] Potassium [Moles/Vol] 3.9 mmol/L 3.7 - 5.3 mmol/L [facility] Protein [Mass/Vol] 5.4 g/dL Low 6.6 - 8.7 g/dL [facility] Sodium [Moles/Vol] 134 mmol/L Low 136 - 145 mmol/L [facility] Urea nitrogen [Mass/Vol] 21 mg/dL 8 - 23 mg/dL [facility] Urea nitrogen/Creatinine [Mass ratio] 26 mg/mg High 9 - 20 [facility] EKG Rhythm Stripon [facility] Glucose, Whole Bloodon 04-06 Glucose [Mass/Vol] 316 mg/dL High 74 - 100 mg/dL [facility] Interpretation and review of laboratory results Abnormal [facility] Glucose [Mass/Vol] 316 mg/dL High 74-100 [facility] Glucose [Mass/Vol] 352 mg/dL High 74 - 100 mg/dL [facility] Interpretation and review of laboratory results Abnormal [facility] Glucose [Mass/Vol] 352 mg/dL High 74-100 [facility] Glucose [Mass/Vol] 308 mg/dL High 74 - 100 mg/dL [facility] Interpretation and review of laboratory results Abnormal [facility] Glucose [Mass/Vol] 308 mg/dL High 74-100 [facility] No Panel Informationon 04-06 [facility] Nuclear stress test with doris cardial perfusionon 04-06-2025 Baseline Diastolic BP 80 mmHg [facility] Baseline HR 65 BPM [facility] Baseline Systolic BP 180 mmHg [facility] Body surface area Derived from formula 1.91 m2 [facility] Exercise Duration Seconds 16 sec [facility] Exercise Duration Time 1 min [facility] Stress Diastolic BP 80 mmHg [facility] Stress Estimated Workload 1 METS [facility] Stress Peak HR 91 BPM [facility] Stress Percent HR Achieved 61 % [facility] Stress Rate Pressure Product 44[address] BPM*mmHg [facility] Stress ST Depression 1 mm [facility] Stress Systolic BP 180 mmHg [facility] Stress Target HR 150 bpm [facility] Perfusion Defect: There is a left ventricular stress perfusion defect present in the inferior, inferolateral and inferoapical segment(s) that is predominantly fixed. This defect was visualized during the stress and rest phases of imaging. The defect appears to be infarction and meme-infarct ischemia. Sum difference score of 6. Perfusion [...] The defect appears to be infarction and meme-infarct ischemia. Sum difference score of 6. Perfusion Defect Conclusion There is no evidence of transient ischemic dilation (TID). [facility] CV RPACS STRESS [facility] Radiology Study observation (narrative) [facility] Procalcitoninon 04-06-2025 Procalcitonin [Mass/Vol] 0.04 ng/mL 0.00 - 0.09 ng/mL [facility] Comment on above: Suspected Sepsis: <0.50 ng/mL Low likelihood of sepsis. 0.50-2.00 ng/mL Increased likelihood of sepsis. Antibiotics encouraged. >2.00 ng/mL High risk of sepsis/shock. Antibiotics strongly encouraged. Suspected Lower Resp Tract Infections: <0.24 ng/mL Low likelihood of bacterial infection. >0.24 ng/mL Increased likelihood of bacterial infection. Antibiotics encouraged. With successful antibiotic therapy, PCT levels should decrease rapidly. (Half-life of 24 to 36 hours.) Procalcitonin values from samples collected within the first 6 hours of systemic infection may still be low. Retesting may be indicated. Values from day 1 and day 4 can be entered into the Change in Procalcitonin Calculator (www.otsngu-rzg-tmdfdtuimt.com) to determine the patient's Mortality Risk Prognosis In healthy neonates, plasma Procalcitonin (PCT) concentrations increase gradually after , reaching peak values at about 24 hours of age then decrease to normal values below 0.5 ng/mL by 48-72 hours of age. [facility] Procalcitonin 0.04 ng/mL Normal 0.00-0.09 [facility] Comment on above: Result Comment: Suspected Sepsis: <0.50 ng/mL Low likelihood of sepsis. 0.50-2.00 ng/mL Increased likelihood of sepsis. Antibiotics encouraged. >2.00 ng/mL High risk of sepsis/shock. Antibiotics strongly encouraged. Suspected Lower Resp Tract Infections: <0.24 ng/mL Low likelihood of bacterial infection. >0.24 ng/mL Increased likelihood of bacterial infection. Antibiotics encouraged. With successful antibiotic therapy, PCT levels should decrease rapidly. (Half-life of 24 to 36 hours.) Procalcitonin values from samples collected within the first 6 hours of systemic infection may still be low. Retesting may be indicated. Values from day 1 and day 4 can be entered into the Change in Procalcitonin Calculator (www.mjrdrs-dli-coyusetqec.[employer]) to determine the patient's Mortality Risk Prognosis In healthy neonates, plasma Procalcitonin (PCT) concentrations increase gradually after , reaching peak values at about 24 hours of age then decrease to normal values below 0.5 ng/mL by 48-72 hours of age. Performed By: #### P RCAL #### [id number] [place] [address] Viscosity Inspector: Dariel Mora MD Troponinon 04-06-2025 Interpretation and review of laboratory results Abnormal [facility] Troponin I.cardiac High sensitivity method [Mass/Vol] 37 ng/L High 0 - 22 ng/L [facility] Comment on above: High Sensitivity Tro ponin values cannot be compared with other Troponin methodologies. [facility] Troponin, High Sens 37 ng/L High 0-22 [facility] Comment on above: Result Comment: High Sensitivity Troponin values cannot be compared with other Troponin methodologies. Performed By: #### T ROPI ####[facility] [place] [address] Lab Director: Reginaldo Mchugh MD Brain Natri. Peptideon 04-05 Natriuretic peptide B (Bld) [Mass/Vol] 8750 pg/mL High 0-125 [facility] Comment on above: Performed By: #### B GREEN PLUMBER, CRP, CMPX, CDP ####[facility] [place] [address] lab Director: Reginaldo Mchugh MD Brain Natriuretic Peptideon 04-05-2025 Natriuretic peptide B (Bld) [Mass/Vol] 1715 pg/mL High 0 - 125 pg/mL [facility] C-Reactive Proteinon 025 CRP High sensitivity method [Mass/Vol] mg/L 0.0 - 5.0 mg/L [facility] CRP [Mass/Vol] mg/L Normal 0.0-5.0 [facility] Comment on above: Performed By: #### B GREEN PLUMBER, CRP, CMPX, CDP ####[address] [place] [address] lab Director: Reginaldo Mchugh MD CBC with Auto Differentialon 04-05-2025 Basophils (Bld) [#/Vol] [facility] Basophils/100 WBC (Bld) 0 % 0 - 2 % [facility] Eosinophils (Bld) [#/Vol] [facility] Eosinophils/100 WBC (Bld) 0 % Low 1 - 4 % [facility] Erythrocyte distribution width (RBC) [Ratio] 13.4 % 11.8 - 14.4 % [facility] Hematocrit (Bld) [Volume fraction] 41.7 % 40.7 - 50.3 % [facility] Hemoglobin (Bld) [Mass/Vol] 14.6 g/dL 13.0 - 17.0 g/dL [facility] Immature granulocytes (Bld) [#/Vol] 0.03 10*3/uL [facility] Immature granulocytes/100 WBC (Bld) 0 % 0 [facility] Interpretation and review of laboratory results Abnormal [facility] Lymphocytes/100 WBC (Bld) 8 % Low 24 - 43 % [facility] Lymphocytes/100 WBC (Bld) 0.89 % Low [facility] MCH (RBC) [Entitic mass] 30.6 pg 25.2 - 33.5 pg [facility] MCHC (RBC) [Mass/Vol] 35 g/dL High 28.4 - 34.8 g/dL [facility] MCV (RBC) [Entitic vol] 87.4 fL 82.6 - 102.9 fL [facility] Monocytes/100 WBC (Bld) 1 % Low 3 - 12 % [facility] Monocytes/100 WBC (Bld) 0.1 % [facility] Neutrophils/100 WBC (Bld) 91 % High 36 - 65 % [facility] Nucleated RBC/100 WBC (Bld) [Ratio] 0 % 0.0 per 100 WBC [facility] Platelet mean volume (Bld) [Entitic vol] 9.3 fL 8.1 - 13.5 fL [facility] Platelets (Bld) [#/Vol] 227 10*3/uL [facility] RBC (Bld) [#/Vol] 4.77 10*6/uL 4.21 - 5.7 7 m/uL [facility] Segmented neutrophils/100 WBC (Bld) 9.53 % High [facility] WBC other (Bld) [#/Vol] 10.[address] [facility] CBC with Diffon 04-05-2025 Abs. Basophil <0.03 Normal 0.00-0.20 [facility] Comment on above: Performed By: #### B GREEN PLUMBER, CRP, CMPX, CDP ####[address] [place], [place] [id number] Lab Director: Reginaldo Mchugh MD Abs. Eosinophil <0.03 Normal 0.00-0.44 [facility] Comment on above: Performed By: #### B GREEN PLUMBER, CRP, CMPX, CDP ####[facility] [place], [place] [id number] lab Director: Reginaldo Mchugh MD Abs.Imm.Granulocyte 0.03 k/uL Normal 0.00-0.30 [facility] Comment on above: Performed By: #### B GREEN PLUMBER, CRP, CMPX, CDP ####[address] , [place] [id number] Lab Director: Reginaldo Mchugh MD Abs.Neutrophil (Seg) 9.53 k/uL High 1.50-8.10 [facility] Comment on above: Performed By: #### B GREEN PLUMBER, CRP, CMPX, CDP ####[address] , [place] [id number] lab Director: Reginaldo Mchugh MD Basophils/100 WBC (Bld) 0 % Normal 0-2 [facility] Comment on above: Performed By: #### B GREEN PLUMBER, CRP, CMPX, CDP ####[address] , [facility] lab Director: Reginaldo Mchugh MD Eosinophils/100 WBC (Bld) 0 % Low 1-4 [facility] Comment on above: Performed By: #### B GREEN PLUMBER, CRP, CMPX, CDP ####[address] , [place] [id number] Lab Director: Reginaldo Mchugh MD Erythrocyte distribution width (RBC) [Ratio] 13.4 % Normal 11.8-14.4 [facility] Comment on above: Performed By: #### B GREEN PLUMBER, CRP, CMPX, CDP ####[address] , [facility] Lab Director: Reginaldo Mchugh MD Hematocrit (Bld) [Volume fraction] 41.7 % Normal 40.7-50.3 [facility] Comment on above: Performed By: #### B GREEN PLUMBER, CRP, CMPX, CDP ####[address] , [place] [id number] Lab Director: Reginaldo Mchugh MD Hemoglobin (Bld) [Mass/Vol] 14.6 g/dL Normal 13.0-17.0 [facility] Comment on above: Performed By: #### B GREEN PLUMBER, CRP, CMPX, CDP ####[address] , [place] [id number] lab Director: Reginaldo Mchugh MD Immature granulocytes/100 WBC (Bld) 0 % Normal 0 [facility] Comment on above: Performed By: #### B GREEN PLUMBER, CRP, CMPX, CDP ####[address] , [place] [id number] [facility] Director: Reginaldo Mchugh MD Lymphocytes (Bld) [#/Vol] 0.89 10*3/uL Low 1.10-3.70 [facility] Comment on above: Performed By: #### B GREEN PLUMBER, CRP, CMPX, CDP ####[address] , [place] [id number] lab Director: Reginaldo Mchugh MD Lymphocytes/100 WBC (Bld) 8 % Low 24-43 [facility] Comment on above: Performed By: #### B GREEN PLUMBER, CRP, CMPX, CDP ####[address] , [place] [id number] lab Director: Reginaldo Mchugh MD MCH (RBC) [Entitic mass] 30.6 pg Normal 25.2-33.5 [facility] Comment on above: Performed By: #### B GREEN PLUMBER, CRP, CMPX, CDP ####[address] , [facility] lab Director: Reginaldo Mchugh MD MCHC (RBC) [Mass/Vol] 35.0 g/dL High 28.4-34.8 [facility] Comment on above: Performed By: #### B GREEN PLUMBER, CRP, CMPX, CDP ####[address] [place] [address] lab Director: Reginaldo Mchugh MD MCV (RBC) [Entitic vol] 87.4 fL Normal 82.6-102.9 [facility] Comment on above: Performed By: #### B GREEN PLUMBER, CRP, CMPX, CDP ####[address] [place] [address] Lab Director: Reginaldo Mchugh MD Monocytes (Bld) [#/Vol] 0.10 10*3/uL Normal 0.10-1.20 [facility] Comment on above: Performed By: #### B GREEN PLUMBER, CRP, CMPX, CDP ####[address] , [place] [id number] Lab Director: Reginaldo Mchugh MD Monocytes/100 WBC (Bld) 1 % Low 3-12 [facility] Comment on above: Performed By: #### B GREEN PLUMBER, CRP, CMPX, CDP ####[address] [place] [address] Lab Director: Reginaldo Mchugh MD Neutrophil (Seg) 91 % High 36-65 [facility] Comment on above: Performed By: #### B GREEN PLUMBER, CRP, CMPX, CDP ####[address] [place] [address] Lab Director: Reginaldo Mchugh MD NRBC Automated 0.0 per 100 WBC Normal 0.0 [facility] Comment on above: Performed By: #### B GREEN PLUMBER, CRP, CMPX, CDP ####[address] [place] [address] Lab Director: Reginaldo Mchugh MD Platelet mean volume (Bld) [Entitic vol] 9.3 fL Normal 8.1-13.5 [facility] Comment on above: Performed By: #### B GREEN PLUMBER, CRP, CMPX, CDP ####[address] , [place] [id number] Lab Director: Reginaldo Mchugh MD Platelets (Bld) [#/Vol] 227 10*3/uL Normal 138-453 [facility] Comment on above: Performed By: #### B GREEN PLUMBER, CRP, CMPX, CDP ####[facility] [place] , [place] [id number] Lab Director: Reginaldo Mchugh MD RBC (d) [#/Vol] 4.77 10*6/uL Normal 4.21-5.77 [facility] Comment on above: Performed By: #### B GREEN PLUMBER, CRP, CMPX, CDP ####[facility] [place] , [place] [id number] Lab Director: Reginaldo Mchugh MD WBC (Bld) [#/Vol] 10.6 10*3/uL Normal 3.5-11.3 [facility] Comment on above: Performed By: #### B GREEN PLUMBER, CRP, CMPX, CDP ####[facility] [place] , [place] [id number] Lab Director: Reginaldo Mchugh MD Cardiac echo study Procedure Ordered By: Alfred Ivan on 04-05-2025 Ao Root Index 0.99 cm/m2 [employer] Phone: Aortic Root 1.9 cm [employer] Phone: Aortic Sinus Valsalva 3.4 cm [employer] Phone: Aortic Sinus Valsalva Index 1.77 cm/m2 [employer] Phone: AV Area by Peak Velocity 1.6 cm2 [employer] Phone: AV Area by VTI 1.7 cm2 [email or web address] Phone: AV Cusp Mmode 1.9 cm [employer] Phone: AV Mean Gradient 6 mmHg [employer] Phone: AV Mean Velocity 1.1 m/s [employer] Phone: AV Peak Gradient 11 mmHg Bon [employer] Phone: AV Peak Velocity 1.7 m/s [employer] Work Phone: AV Velocity Ratio 0.53 [employer] Work Phone: AV VTI 33.2 cm [employer] Phone: JANIS/BSA Peak Velocity 0.8 cm2/m2 [employer] Work Phone: JANIS/BSA VTI 0.9 cm2/m2 [employer] Work Phone: Body surface area Derived from formula 1.91 m2 [employer] Phone: E/E' Lateral 7.82 [employer] Phone: EF BP 43 % Abnormal 55 - 100 % [employer] Work Phone: EF Physician 45 % [employer] Work Phone: Est. RA Pressure 3 mmHg [employer] Work Phone: Fractional Shortening 2D 18 % 28 - 44 % [employer] Work Phone: Interpretation and review of laboratory results Abnormal [employer] Work Phone: IVSd 1.3 cm Abnormal 0.6 - 1.0 cm [employer] Phone: LA Area 2C 21.8 cm2 [employer] Work Phone: LA Area 4C 21.8 cm2 [employer] Work Phone: LA Major Moxee 5.3 cm [employer] Work Phone: LA Minor Moxee 5.2 cm [employer] Phone: LA Volume BP 71 mL Abnormal 18 - 58 mL [employer] Phone: LA Volume Index BP 37 ml/m2 Abnormal 16 - 34 ml/m2 [employer] Work Phone: LA Volume Index MOD A2C 40 ml/m2 Abnormal 16 - 34 ml/m2 [employer] Phone: LA Volume Index MOD A4C 34 ml/m2 16 - 34 ml/m2 [employer] Phone: LA Volume MOD A2C 76 mL Abnormal 18 - 58 mL [employer] Phone: LA Volume MOD A4C 66 mL Abnormal 18 - 58 mL [employer] Phone: LV E' Lateral Velocity 7.29 cm/s [employer] Phone: LV EDV A2C 138 mL [employer] Phone: LV EDV A4C 149 mL [employer] Phone: LV EDV Index A2C 72 mL/m2 [employer] Work Phone: LV EDV Index A4C 78 mL/m2 [employer] Phone: LV Ejection Fraction A2C 43 % [employer] Phone: LV Ejection Fraction A4C 42 % [employer] Phone: LV ESV A2C 78 mL [employer] Phone: LV ESV A4C 86 mL [employer] Phone: LV ESV Index A2C 41 mL/m2 [employer] Work Phone: LV ESV Index A4C 45 mL/m2 [employer] Phone: LV Mass 2D 233.7 g Abnormal 88 - 224 g [employer] Phone: LV Mass 2D Index 121.7 g/m2 Abnormal 49 - 115 g/m2 [employer] Phone: LV RWT Ratio 0.44 [employer] Phone: LVIDd 5 cm 4.2 - 5.9 cm [employer] Work Phone: LVIDd Index 2.6 cm/m2 [employer] Work Phone: LVIDs 4.1 cm [employer] Work Phone: LVIDs Index 2.14 cm/m2 [employer] Work Phone: LVOT Area 3.1 cm2 [employer] Work Phone: LVOT Diameter 2 cm [employer] Work Phone: LVOT Mean Gradient 2 mmHg [employer] Work Phone: LVOT Peak Gradient 3 mmHg [employer] Work Phone: LVOT Peak Velocity 0.9 m/s Bon Se [employer] Work Phone: LVOT Stroke Volume Index 29.3 mL/m2 [employer] Phone: LVOT SV 56.2 ml [employer] Phone: LVOT VTI 17.9 cm [employer] Phone: LVOT:AV VTI Index 0.54 Bon [facility] [employer] Phone: LVPWd 1.1 cm Abnormal 0.6 - 1.0 cm [employer] Phone: MV A Velocity 0.91 m/s [employer] Phone: MV E Velocity 0.57 m/s [employer] Phone: MV E Wave Deceleration Time 238 ms [employer] Phone: MV E/A 0.63 [employer] Phone: PV Max Velocity 1 m/s [employer] Work Phone: PV Peak Gradient 4 mmHg Bon Seco urs [employer] Work Phone: RVSP 16 mmHg [employer] Hey[employer]ting [employer] Work Phone: Sinotubular Junction 2.1 cm [employer] [employer] Work Phone: TAPSE 3.2 cm 1.7 cm [employer] Work Phone: TR Max Velocity 1.81 m/s [employer] Rose[employer] Work Phone: TR Peak Gradient 13 mmHg [employer] Roseo [employer] Work Phone: [employer] Carter [employer] Work Phone: Cardiac echo study Procedure on 04-05-2025 Left Ventricle: Moderately reduced left ventricular systolic [...] index is mildly increased (35-41 mL/m2) mL/m2. Right Atrium Right atrium size [...] Image quality: adequate. No contrast was given. [facility] CV CPACS Radiology Study observation (narrative) [facility] Comp Metabolic Pr/rfx MGon 0 - Albumin [Mass/Vol] 4.0 g/dL Normal 3.5-5.2 [facility] Comment on above: Performed By: #### B GREEN PLUMBER, CRP, CMPX, CDP ####[address] , [place] [id number] Lab Director: Reginaldo Mchugh MD Albumin/Glob Ratio 2.1 Normal 1.0-2.5 [facility] Comment on above: Performed By: #### B GREEN PLUMBER, CRP, CMPX, CDP ####[address] [place] [address] Lab Director: Reginaldo Mchugh MD Alkaline Phos 81 U/L Normal 40-129 [facility] Comment on above: Performed By: #### B GREEN PLUMBER, CRP, CMPX, CDP ####[address] [place] [address] Lab Director: Reginaldo Mchugh MD ALT [Catalytic activity/Vol] 37 U/L Normal 10-50 [facility] Comment on above: Performed By: #### B GREEN PLUMBER, CRP, CMPX, CDP ####[facility] [place] [address] Lab Director: Reginaldo Mchugh MD Anion gap [Moles/Vol] 12 mmol/L Normal 9-16 [facility] Comment on above: Performed By: #### B GREEN PLUMBER, CRP, CMPX, CDP ####[address] , [place] [phone] Director: Reginaldo Mchugh MD AST [Catalytic activity/Vol] 25 U/L Normal 10-50 [facility] Comment on above: Performed By: #### B GREEN PLUMBER, CRP, CMPX, CDP ####[address] [place] [address] lab Director: Reginaldo Mchugh MD Bilirubin [Mass/Vol] 0.4 mg/dL Normal 0.00-1.20 [facility] Comment on above: Performed By: #### B GREEN PLUMBER, CRP, CMPX, CDP ####[address] , [place] [id number] lab Director: Reginaldo Mchugh MD BUN/CRE Ratio 20 Normal 9-20 [facility] Comment on above: Performed By: #### B GREEN PLUMBER, CRP, CMPX, CDP ####[address] , [place] [id number] lab Director: Reginaldo Mchugh MD Calcium [Mass/Vol] 8.7 mg/dL Normal 8.6-10.4 [facility] Comment on above: Performed By: #### B GREEN PLUMBER, CRP, CMPX, CDP ####[address] , [place] 1255583 lab Director: Reginaldo Mchugh MD Chloride [Moles/Vol] 98 mmol/L Normal 98-107 [facility] Comment on above: Performed By: #### B GREEN PLUMBER, CRP, CMPX, CDP ####[address] [place] [address] lab Director: Reginaldo Mchugh MD CO2 [Moles/Vol] 27 mmol/L Normal 20-31 [facility] Comment on above: Performed By: #### B GREEN PLUMBER, CRP, CMPX, CDP ####[address] , [place] 16[address]83 lab Director: Reginaldo Mchugh MD Creatinine [Mass/Vol] 0.6 mg/dL Low 0.70-1.20 [facility] Comment on above: Performed By: #### B GREEN PLUMBER, CRP, CMPX, CDP ####[address] [place] [address] Lab Director: Reginaldo Mchugh MD GFR/1.73 sq M.predicted among non-blacks MDRD (S/P/Bld) [Vol rate/Area] mL/min/{1.73_m2} Normal >60 [facility] Comment on above: Result Comment: These results are not intended for [...] following therapy that affects renal tubular secretion. Performed By: #### B GREEN PLUMBER, CRP, CMPX, CDP ####[address] , [place] [id number] lab Director: Reginaldo Mchugh MD Glucose [Mass/Vol] 203 mg/dL High 74-99 [facility] Comment on above: Performed By: #### B GREEN PLUMBER, CRP, CMPX, CDP ####[address] [place] [address] lab Director: Reginaldo Mchugh MD Potassium [Moles/Vol] 3.7 mmol/L Normal 3.7-5.3 [facility] Comment on above: Performed By: #### B GREEN PLUMBER, CRP, CMPX, CDP ####[address] [place] [address] lab Director: Reginaldo Mchugh MD Protein [Mass/Vol] 5.9 g/dL Low 6.6-8.7 [facility] Comment on above: Performed By: #### B GREEN PLUMBER, CRP, CMPX, CDP ####[address] [place] [address] lab Director: Reginaldo Mchugh MD Sodium [Moles/Vol] 137 mmol/L Normal 136-145 [facility] Comment on above: Performed By: #### B GREEN PLUMBER, CRP, CMPX, CDP ####[facility] [place] [address] lab Director: Reginaldo Mchugh MD Urea nitrogen [Mass/Vol] 12 mg/dL Normal 8-23 [facility] Comment on above: Performed By: #### B GREEN PLUMBER, CRP, CMPX, CDP ####[facility] [place] [address] lab Director: Reginaldo Mchugh MD Comprehensive Metabolic Pane l w/ Reflex to [facility] 04-05-2025 Albumin [Mass/Vol] 4 g/dL 3.5 - 5.2 g/dL [facility] Albumin/Globulin [Mass ratio] 2.1 {ratio} 1.0 - 2.5 [facility] ALP [Catalytic activity/Vol] 81 U/L 40 - 129 U/L [facility] ALT [Catalytic activity/Vol] 37 U/L 10 - 50 U/L [facility] Anion gap [Moles/Vol] 12 mmol/L 9 - 16 mmol/L [facility] AST [Catalytic activity/Vol] 25 U/L 10 - 50 U/L [facility] Bilirubin [Mass/Vol] 0.4 mg/dL 0.00 - 1.20 mg/dL [facility] Calcium [Mass/Vol] 8.7 mg/dL 8.6 - 10. 4 mg/dL [facility] Chloride [Moles/Vol] 98 mmol/L 98 - 10 7 mmol/L [facility] CO2 [Moles/Vol] 27 mmol/L 20 - 31 mmol/L [facility] Creatinine [Mass/Vol] 0.6 mg/dL Low 0.70 - 1.20 mg/dL [facility] Est, Glom Filt Rate - PINF [facility] Comment on above: These results are not intended for use [...] following therapy that affects renal tubular secretion. Glucose [Mass/Vol] 203 mg/dL High 74 - 99 mg/dL [facility] Potassium [Moles/Vol] 3.7 mmol/L 3.7 - 5.3 mmol/L [facility] Protein [Mass/Vol] 5.9 g/dL Low 6.6 - 8.7 g/dL [facility] Sodium [Moles/Vol] 137 mmol/L 136 - 145 mmol/L [facility] Urea nitrogen [Mass/Vol] 12 mg/dL 8 - 23 mg/dL [facility] Urea nitrogen/Creatinine [Mass ratio] 20 mg/mg 9 - 20 [facility] EKG Rhythm Stripon [facility] Glucose, Whole Bloodon 04-05 Glucose [Mass/Vol] 253 mg/dL High 74 - 100 mg/dL [facility] Interpretation and review of laboratory results Abnormal [facility] Glucose [Mass/Vol] 253 mg/dL High 74-100 [facility] Glucose [Mass/Vol] 316 mg/dL High 74 - 100 mg/dL [facility] Interpretation and review of laboratory results Abnormal [facility] Glucose [Mass/Vol] 316 mg/dL High 74-100 [facility] Glucose [Mass/Vol] 289 mg/dL High 74 - 100 mg/dL [facility] Interpretation and review of laboratory results Abnormal [facility] Glucose [Mass/Vol] 289 mg/dL High 74-100 [facility] Glucose [Mass/Vol] 194 mg/dL High 74 - 100 mg/dL [facility] Interpretation and review of laboratory results Abnormal [facility] Glucose [Mass/Vol] 194 mg/dL High 74-100 [facility] Glucose [Mass/Vol] 282 mg/dL High 74 - 100 mg/dL [facility] Interpretation and review of laboratory results Abnormal [facility] Glucose [Mass/Vol] 282 mg/dL High 74-100 [facility] Hemoglobin A1Con 04-05-2025 Average glucose Estimated from glycated hemoglobin (Bld) [Mass/Vol] 318 mg/dL [facility] Comment on above: The ADA and AACC rec ommend providing the estimated average glucose result to permit better patient understanding of their HBA1c result. HbA1c (Bld) [Mass fraction] 12.7 % High 4.0 - 6.0 % [facility] Interpretation and review of laboratory results Abnormal [facility] Glucose [Mass/Vol] 318 mg/dL Normal [facility] Comment on above: Result Comment: The ADA and AACC recommend providing the estimated average glucose result to permit better patient understanding of their HBA1c result. Performed By: #### P RCAL #### [facility] [employer] [address] [place], [place] [id number] Viscosity Inspector: Dariel Mora MD HbA1c (Bld) [Mass fraction] 12.7 % High 4.0-6.0 [facility] Comment on above: Performed By: #### P RCAL #### [place] [id number] [place], [place] [id number] Viscosity Inspector: Dariel Moar MD No Panel Informationon 04-05 Interpretation and review of laboratory results Abnormal [facility] POCT GlucoseOrdered By: Gail Etienne on 04-05-2025 Glucose [Mass/Vol] 282 mg/dL [facility] Interpretation and review of laboratory results Normal [facility] QC OK? yes [facility] Procalcitoninon 04-05-2025 Procalcitonin 0.06 ng/mL Normal 0.00-0.09 [facility] Comment on above: Result Comment: Suspected Sepsis: <0.50 ng/mL Low likelihood of sepsis. 0.50-2.00 ng/mL Increased likelihood of sepsis. Antibiotics encouraged. >2.00 ng/mL High risk of sepsis/shock. Antibiotics strongly encouraged. Suspected Lower Resp Tract Infections: <0.24 ng/mL Low likelihood of bacterial infection. >0.24 ng/mL Increased likelihood of bacterial infection. Antibiotics encouraged. With successful antibiotic therapy, PCT levels should decrease rapidly. (Half-life of 24 to 36 hours.) Procalcitonin values from samples collected within the first 6 hours of systemic infection may still be low. Retesting may be indicated. Values from day 1 and day 4 can be entered into the Change in Procalcitonin Calculator (www.uobedf-adl-paeolwqijt.[employer]) to determine the patient's Mortality Risk Prognosis In healthy neonates, plasma Procalcitonin (PCT) concentrations increase gradually after , reaching peak values at about 24 hours of age then decrease to normal values below 0.5 ng/mL by 48-72 hours of age. Performed By: #### P RCAL #### [employer] [place] [id number] [place] [id number] Viscosity Inspector: Dariel Mora MD Procalcitonin [Mass/Vol] 0.06 ng/mL 0.00 - 0.09 ng/mL [facility] Comment on above: Suspected Sepsis: <0.50 ng/mL Low likelihood of sepsis. 0.50-2.00 ng/mL Increased likelihood of sepsis. Antibiotics encouraged. >2.00 ng/mL High risk of sepsis/shock. Antibiotics strongly encouraged. Suspected Lower Resp Tract Infections: <0.24 ng/mL Low likelihood of bacterial infection. >0.24 ng/mL Increased likelihood of bacterial infection. Antibiotics encouraged. With successful antibiotic therapy, PCT levels should decrease rapidly. (Half-life of 24 to 36 hours.) Procalcitonin values from samples collected within the first 6 hours of systemic infection may still be low. Retesting may be indicated. Values from day 1 and day 4 can be entered into the Change in Procalcitonin Calculator ([employer]) to determine the patient's Mortality Risk Prognosis In healthy neonates, plasma Procalcitonin (PCT) concentrations increase gradually after , reaching peak values at about 24 hours of age then decrease to normal values below 0.5 ng/mL by 48-72 hours of age. [facility] Resp Viral Panelon 5 Adenovirus Not detected Normal [facility] Comment on above: Performed By: #### R PATIENT ADMITTING CLERK #### [facility] [address] [place] [address] Viscosity Inspector: Dariel Mora MD [facility] [address] [place] [address] [place] [address] Viscosity Inspector: MD Harsh Flanagandet.parapertussis Not detected Normal [facility] Comment on above: Performed By: #### R PATIENT ADMITTING CLERK #### [place] [id number] [place] [address] Viscosity Inspector: Dariel Mora MD [facility] [address] [place] [address] [place] [address] Viscosity Inspector: Reginaldo Mchugh MD Bordetella pertussis Not detected Normal [facility] Comment on above: Performed By: #### R PATIENT ADMITTING CLERK #### [address] [place] [address] Viscosity Inspector: Dariel oMra MD [facility] [address] [place] [address] [place] [address] Viscosity Inspector: Reginaldo Mchugh MD Chlamyd.pneumoniae Not detected Normal [facility] Comment on above: Performed By: #### R PATIENT ADMITTING CLERK #### [facility] [address] [place] [address] Viscosity Inspector: Dariel Mora MD [facility] [address] [place] [address] [place] [address] Viscosity Inspector: Reginaldo Mchugh MD Coronavirus [id number] Not detected [facility] Comment on above: Performed By: #### R PATIENT ADMITTING CLERK #### [facility] [address] [place] [address] Viscosity Inspector: Dariel Mora MD [facility] [address] [place] [address] [place] [place], [place] [id number] Viscosity Inspector: Reginaldo Mchugh MD Coronavirus HKU1 Not detected [facility] Comment on above: Performed By: #### R PATIENT ADMITTING CLERK #### [facility] [address] [place] [address] Viscosity Inspector: Dariel Mora MD [facility] [address] [place] [address] [place] [address] Viscosity Inspector: Reginaldo Mchugh MD Coronavirus NL63 Not detected [facility] Comment on above: Performed By: #### R PATIENT ADMITTING CLERK #### [address] [address] Viscosity Inspector: Dariel Mora MD [facility] [address] [place] [address] [place] [address] Viscosity Inspector: Reginaldo Mchugh MD Coronavirus OC43 Not detected [facility] Comment on above: Performed By: #### R PATIENT ADMITTING CLERK #### [address] [address] Viscosity Inspector: Dariel Mora MD [facility] [address] [place] [address] [place] [address] Viscosity Inspector: Reginaldo Mchugh MD Human Metapneumo Not detected [facility] Comment on above: Performed By: #### R PATIENT ADMITTING CLERK #### [address] [address] Viscosity Inspector: Dariel Mora MD [facility] [address] [place] [address] [place] [address] Viscosity Inspector: Reginaldo Mchugh MD Influenza A Not detected [facility] Comment on above: Performed By: #### R PATIENT ADMITTING CLERK #### [facility] [address] [place] [address] Viscosity Inspector: Dariel Mora MD [facility] [address] [place] [address] [place] [address] Viscosity Inspector: Reginaldo Mchugh MD Influenza B Not detected Normal [facility] Comment on above: Performed By: #### R PATIENT ADMITTING CLERK #### [facility] [address] [place] [address] Viscosity Inspector: Dariel Mora MD [facility] [address] [place] [address] [place] [address] Viscosity Inspector: Reginaldo Mchugh MD Mycoplas.pneumoniae Not detected Normal [facility] Comment on above: Result Comment: Perf ormed by multiplexed nucleic acid assay. Performed By: #### R PATIENT ADMITTING CLERK #### [facility] [address] [place] [id number] Viscosity Inspector: Dariel Mora MD [facility] [address] [place] [address] [place] [address] Viscosity Inspector: Reginaldo Mchugh MD Parainfluenza 1 Not detected Normal [facility] Comment on above: Performed By: #### R PATIENT ADMITTING CLERK #### [facility] [address] [place] [address] Viscosity Inspector: Dariel Mora MD [facility] [address] [place] [address] [place] [address] Viscosity Inspector: Reginaldo Mchugh MD Parainfluenza 2 Not detected [facility] Comment on above: Performed By: #### R PATIENT ADMITTING CLERK #### [facility] [address] [place] [address] Viscosity Inspector: Dariel Mora MD [facility] [address] [place] [address] [place] [address] Viscosity Inspector: Reginaldo Mchugh MD Parainfluenza 3 Not detected [facility] Comment on above: Performed By: #### R PATIENT ADMITTING CLERK #### [facility] [address] [place] [address] Viscosity Inspector: Dariel Mora MD [facility] [address] [place] [address] [place] [address] Viscosity Inspector: Reginaldo Mchugh MD Parainfluenza 4 Not detected Normal [facility] Comment on above: Performed By: #### R PATIENT ADMITTING CLERK #### [address] [place] [address] Viscosity Inspector: Dariel Mora MD [address] [place] [address] Viscosity Inspector: Reginaldo Mchugh MD Resp Syncytial Virus Not detected Normal [facility] Comment on above: Performed By: #### R PATIENT ADMITTING CLERK #### [address] [address] Viscosity Inspector: Dariel Mora MD [address] [place] [id number] Viscosity Inspector: Reginaldo Mchugh MD Rhino/Enterovirus Not detected Normal [facility] Comment on above: Performed By: #### R PATIENT ADMITTING CLERK #### [facility] [address] [place] [address] Viscosity Inspector: Dariel Mora MD [address] [place], [facility] Viscosity Inspector: Reginaldo Mchugh MD SARS-CoV-2 (COVID-19) RNA MARIE+probe Ql (Unsp spec) Not detected Normal [facility] Comment on above: Performed By: #### R PATIENT ADMITTING CLERK #### [facility] [address] [place] [address] Viscosity Inspector: Dariel Mora MD [facility] [address] [place] [address] Dr. [place], [place] [id number] Viscosity Inspector: Reginaldo Mchugh MD Respiratory Panel, Molecular , with COVID-19 (Restricted: peds pts or suitable admitted adults)on 04-05-2025 Adenovirus DNA MAREI+non-probe Ql (Nph) Not detected Not Detected [facility] B. parapertussis [id number] DNA MARIE+non-probe Ql (Nph) Not detected Not Detected [facility] B. pertussis DNA MARIE+probe Ql (Unsp spec) Not detected Not Detected [facility] C. pneumoniae DNA MARIE+non-probe Ql (Nph) Not detected Not Detected [facility] FLUAV RNA MARIE+non-probe Ql (Nph) Not detected Not Detected [facility] FLUBV RNA MARIE+non-probe Ql (Nph) Not detected Not Detected [facility] HCoV 229E RNA MARIE+non-probe Ql (Nph) Not detected Not Detected [facility] HCoV HKU1 RNA MARIE+non-probe Ql (Nph) Not detected Not Detected [facility] HCoV NL63 RNA MARIE+non-probe Ql (Nph) Not detected Not Detected [facility] HCoV OC43 RNA MARIE+non-probe Ql (Nph) Not detected Not Detected [facility] hMPV RNA MARIE+non-probe Ql (Nph) Not detected Not Detected [facility] M. pneumoniae DNA MARIE+non-probe Ql (Nph) Not detected Not Detected [facility] Comment on above: Performed by multipl exed nucleic acid assay. Parainfluenza virus 1 RNA MARIE+non-probe Ql (Nph) Not detected Not Detected [facility] Parainfluenza virus 2 RNA MARIE+non-probe Ql (Nph) Not detected Not Detected [facility] Parainfluenza virus 3 RNA MARIE+non-probe Ql (Nph) Not detected Not Detected [facility] Parainfluenza virus 4 RNA MARIE+non-probe Ql (Nph) Not detected Not Detected [facility] Rhinovirus+Enteroviru s RNA MARIE+non-probe Ql (Nph) Not detected Not Detected [facility] RSV RNA MARIE+non-probe Ql (Nph) Not detected Not Detected [facility] SARS-CoV-2 (COVID-19) RNA MARIE+non-probe Ql (Nph) Not detected Not Detected [facility] Specimen Description .NASOPHARYNGEAL SWAB [facility] Vascular duplex lower extrem ity venous bilateralon 04-05-2025 No evidence of deep vein or superficial [...] filling and normal phasic and spontaneous flow. [employer] Details A garcia scale, color Doppler imaging and spectral Doppler analysis ultrasound was performed. During the study longitudinal and transverse views were obtained. Continuous wave doppler and pulsed wave doppler was performed. Overall the study quality was adequate. Study was technically difficult due to: patient positioning. [facility] CV CPACS Vascular duplex lower extrem ity venous bilateralOrdered By: Kranthi Heath on 04-05-2025 [facility] Work Phone: Basic Metabolic Panelon 03-23 Anion gap [Moles/Vol] 14 mmol/L 9 - 16 mmol/L [facility] Calcium [Mass/Vol] 8.7 mg/dL 8.6 - 10. 4 mg/dL [facility] Chloride [Moles/Vol] 95 mmol/L Low 98 - 10 7 mmol/L [facility] CO2 [Moles/Vol] 24 mmol/L 20 - 31 mmol/L [facility] Creatinine [Mass/Vol] 0.7 mg/dL 0.70 - 1.20 mg/dL [facility] Est, Glom Filt Rate - PINF [facility] Comment on above: These results are not intended for use [...] following therapy that affects renal tubular secretion. Glucose [Mass/Vol] 563 mg/dL Critically high 74 - 9 9 mg/dL [facility] Potassium [Moles/Vol] 3.7 mmol/L 3.7 - 5.3 mmol/L [facility] Sodium [Moles/Vol] 133 mmol/L Low 136 - 145 mmol/L [facility] Urea nitrogen [Mass/Vol] 10 mg/dL 8 - 23 mg/dL [facility] Urea nitrogen/Creatinine [Mass ratio] 14 mg/mg - [facility] Basic Metabolic Profon 04-04 Anion gap [Moles/Vol] 14 mmol/L Normal - [facility] Comment on above: Performed By: #### B GREEN PLUMBER, TROPI BMP, CDP #### [facility] [address] [place] [address] Viscosity Inspector: Reginaldo Mchugh MD BUN/CRE Ratio 14 Normal - [facility] Comment on above: Performed By: #### B GREEN PLUMBER, TROPI BMP, CDP #### [address] [place] [address] Viscosity Inspector: Reginaldo Mchugh MD Calcium [Mass/Vol] 8.7 mg/dL Normal 8.6-10.4 [facility] Comment on above: Performed By: #### B GREEN PLUMBER, TROPI BMP, CDP #### [facility] [address] [place] [address] Viscosity Inspector: Reginaldo Mchugh MD Chloride [Moles/Vol] 95 mmol/L Low 98-107 [facility] Comment on above: Performed By: #### B GREEN PLUMBER, TROPI, BMP, CDP #### [facility] [address] [place] [address] [place] [address] Viscosity Inspector: Reginaldo Mchugh MD CO2 [Moles/Vol] 24 mmol/L Normal 20-31 [facility] Comment on above: Performed By: #### B GREEN PLUMBER, GEORGE BMP, CDP #### [facility] [address] [place] [address] Viscosity Inspector: Reginaldo Mchugh MD Creatinine [Mass/Vol] 0.7 mg/dL Normal 0.70-1.20 [facility] Comment on above: Performed By: #### B GREEN PLUMBER, GEORGE BMP, CDP #### [facility] [address] [place] [address] Viscosity Inspector: Reginaldo Mchugh MD GFR/1.73 sq M.predicted among non-blacks MDRD (S/P/Bld) [Vol rate/Area] mL/min/{1.73_m2} Normal >60 [facility] Comment on above: Result Comment: These results are not intended for [...] following therapy that affects renal tubular secretion. Performed By: #### B GREEN PLUMBER, GEORGE BMP, CDP #### [facility] [address] [place] [address] Viscosity Inspector: Reginaldo Mchugh MD Glucose [Mass/Vol] 563 mg/dL Critically high 74-99 M [facility] Comment on above: Performed By: #### B GREEN PLUMBER, GEORGE BMP, CDP #### [facility] [address] [place] [address] Viscosity Inspector: Reginaldo Mchugh MD Potassium [Moles/Vol] 3.7 mmol/L Normal 3.7-5.3 [facility] Comment on above: Performed By: #### B GREEN PLUMBER, GEORGE BMP, CDP #### [facility] [address] [place] [address] Viscosity Inspector: Reginaldo Mchugh MD Sodium [Moles/Vol] 133 mmol/L Low 136-145 [facility] Comment on above: Performed By: #### B GREEN PLUMBER, GEORGE BMP, CDP #### [facility] [address] [place] [address] Viscosity Inspector: Reginaldo Mchugh MD Urea nitrogen [Mass/Vol] 10 mg/dL Normal 8-23 [facility] Comment on above: Performed By: #### B MANOLO, MARVIN VAZQUEZ, CDP #### [facility] [address] [place] [address] Viscosity Inspector: Reginaldo Mchugh MD Beta Hydroxybutyrateon 04-04 Beta Hydroxybutyrate 0.18 mmol/L Normal 0.02-0.27 [facility] Comment on above: Performed By: #### R PATIENT ADMITTING CLERK #### [address] [id number] Viscosity Inspector: Dariel Mora MD [facility] [address] [place] [address] [place] [address] Viscosity Inspector: Reginaldo Mchugh MD Beta-Hydroxybutyrateon 04-04 Beta hydroxybutyrate [Mass/Vol] 0.18 mmol/L 0.02 - 0.27 mmol/L [facility] Blood Gas, Venouson 04-04-20 25 Arterial patency Wrist artery --pre arterial puncture NOT APPLICABLE [facility] HCO3 (Bld) [Moles/Vol] 29.1 mmol/L 24.0 - 30.0 mmol/L [facility] Interpretation and review of laboratory results Abnormal [facility] Oxygen gas flow Oxygen delivery system Cannula [facility] Oxygen saturation in Blood 91 % High 60.0 - 85.0 % [facility] Oxygen/Inspired gas Respiratory system --on ventilator 28 [facility] pCO2, Pankaj 42.7 [facility] pCO2, Pankaj, Temp Adj 42.7 [facility] pH, Pankaj 7.451 High 7.32 - 7.42 [facility] pH, Pankaj, Temp Adj 7.451 High 7.320 - 7.420 [facility] PO2, Pankaj 57.5 High [facility] pO2, Pankaj, Temp Adj 57.5 High [facility] Positive Base Excess, Pankaj 4.6 mmol/L High 0.0 - 2.0 mmol/L [facility] Arterial patency Wrist artery --pre arterial puncture NOT APPLICABLE [facility] Interpretation and review of laboratory results Abnormal [facility] Oxygen gas flow Oxygen delivery system ROOM AIR [facility] Oxygen/Inspired gas Respiratory system --on ventilator 21 [facility] pCO2, Pankaj 41.8 [facility] pCO2, Pankaj, Temp Adj 41.8 [facility] pH, Pankaj 7.395 7.32 - 7.42 [facility] pH, Pankaj, Temp Adj 7.395 7.320 - 7.420 [facility] PO2, Pankaj 99.9 High [facility] pO2, Pankaj, Temp Adj 99.9 High [facility] Positive Base Excess, Pankaj 0.1 mmol/L 0.0 - 2.0 mmol/L [facility] Brain Natri. Peptideon 04-04 Natriuretic peptide B (Bld) [Mass/Vol] 854 pg/mL High 0-125 [facility] Comment on above: Performed By: #### B GREEN PLUMBER, TROPI, BMP, CDP #### [facility] [address] [place] [address] Viscosity Inspector: Reginaldo Mchugh MD Brain Natriuretic Peptideon 04-04-2025 Natriuretic peptide B (Bld) [Mass/Vol] 854 pg/mL High 0 - 125 pg/mL [facility] C-Reactive Proteinon 025 CRP High sensitivity method [Mass/Vol] mg/L 0.0 - 5.0 mg/L [facility] CRP [Mass/Vol] mg/L Normal 0.0-5.0 [facility] Comment on above: Performed By: #### C #### [facility] [address] [place] [address] Viscosity Inspector: Reginaldo Mchugh MD CBC with Auto Differentialon 04-04-2025 Basophils (Bld) [#/Vol] [facility] Basophils/100 WBC (Bld) 0 % 0 - 2 % [facility] Eosinophils (Bld) [#/Vol] 0.12 10*3/uL [facility] Eosinophils/100 WBC (Bld) 1 % 1 - 4 % [facility] Erythrocyte distribution width (RBC) [Ratio] 13.4 % 11.8 - 14.4 % [facility] Hematocrit (Bld) [Volume fraction] 42.3 % 40.7 - 50.3 % [facility] Hemoglobin (Bld) [Mass/Vol] 14.6 g/dL 13.0 - 17.0 g/dL [facility] Immature granulocytes (Bld) [#/Vol] 0.04 10*3/uL [facility] Immature granulocytes/100 WBC (Bld) 0 % 0 [facility] Interpretation and review of laboratory results Abnormal [facility] Lymphocytes/100 WBC (Bld) 17 % Low 24 - 43 % [facility] Lymphocytes/100 WBC (Bld) 1.76 % [facility] MCH (RBC) [Entitic mass] 30.2 pg 25.2 - 33.5 pg [facility] MCHC (RBC) [Mass/Vol] 34.5 g/dL 28.4 - 34.8 g/dL [facility] MCV (RBC) [Entitic vol] 87.6 fL 82.6 - 102.9 fL [facility] Monocytes/100 WBC (Bld) 7 % 3 - 12 % [facility] Monocytes/100 WBC (Bld) 0.67 % [facility] Neutrophils/100 WBC (Bld) 75 % High 36 - 65 % [facility] Nucleated RBC/100 WBC (Bld) [Ratio] 0 % 0.0 per 100 WBC [facility] Platelet mean volume (Bld) [Entitic vol] 9.4 fL 8.1 - 13.5 fL [facility] Platelets (Bld) [#/Vol] 233 10*3/uL [facility] RBC (Bld) [#/Vol] 4.83 10*6/uL 4.21 - 5.7 7 m/uL [facility] Segmented neutrophils/100 WBC (Bld) 7.54 % [facility] WBC other (Bld) [#/Vol] 10.[address] [facility] CBC with Diffon 04-04-2025 Abs. Basophil <0.03 Normal 0.00-0.20 [facility] Comment on above: Performed By: #### B MANOLO, MARVIN VAZQUEZ, CDP #### [address] [place] [id number] Viscosity Inspector: Reignaldo Mchugh MD Abs.Imm.Granulocyte 0.04 k/uL Normal 0.00-0.30 [facility] Comment on above: Performed By: #### B MANOLO, MARVIN VAZQUEZ, CDP #### [address] [place] [id number] Viscosity Inspector: Reginaldo Mchugh MD Abs.Neutrophil (Seg) 7.54 k/uL Normal 1.50-8.10 [facility] Comment on above: Performed By: #### B MANOLO, MARVIN VAZQUEZ, CDP #### [address] [place], [facility] Viscosity Inspector: Reginaldo Mchugh MD Basophils/100 WBC (Bld) 0 % Normal 0-2 [facility] Comment on above: Performed By: #### B GREEN PLUMBER, GEORGE BMP, CDP #### [address] [place] [id number] Viscosity Inspector: Reginaldo Mchugh MD Eosinophils (Bld) [#/Vol] 0.12 10*3/uL Normal 0.00-0.44 [facility] Comment on above: Performed By: #### B GREEN PLUMBER, TROPAnjelica BMP, CDP #### [address] [place], [place] [id number] Viscosity Inspector: Reginaldo Mchugh MD Eosinophils/100 WBC (Bld) 1 % Normal 1-4 [facility] Comment on above: Performed By: #### B GREEN PLUMBER, TROPI, BMP, CDP #### [address] [place], [place] [id number] Viscosity Inspector: Reginaldo Mchugh MD Erythrocyte distribution width (RBC) [Ratio] 13.4 % Normal 11.8-14.4 [facility] Comment on above: Performed By: #### B GREEN PLUMBER, TROPAnjelica BMP, CDP #### [address] [place], [place] [id number] Viscosity Inspector: Reginaldo Mchugh MD Hematocrit (Bld) [Volume fraction] 42.3 % Normal 40.7-50.3 [facility] Comment on above: Performed By: #### B GREEN PLUMBER, GEORGE BMP, CDP #### [address] [place], [place] [id number] Viscosity Inspector: Reginaldo Mchugh MD Hemoglobin (Bld) [Mass/Vol] 14.6 g/dL Normal 13.0-17.0 [facility] Comment on above: Performed By: #### B GREEN PLUMBER, TROPI, BMP, CDP #### [address] [place], [place] [id number] Viscosity Inspector: Reginaldo Mchugh MD Immature granulocytes/100 WBC (Bld) 0 % Normal 0 [facility] Comment on above: Performed By: #### B GREEN PLUMBER, TROPI, BMP, CDP #### [address] [place], [place] [id number] Viscosity Inspector: Reginaldo Mchugh MD Lymphocytes (Bld) [#/Vol] 1.76 10*3/uL Normal 1.10-3.70 [facility] Comment on above: Performed By: #### B GREEN PLUMBER, TROPI, BMP, CDP #### [address] [place] [address] Viscosity Inspector: Reginaldo Mchugh MD Lymphocytes/100 WBC (Bld) 17 % Low 24-43 [facility] Comment on above: Performed By: #### B GREEN PLUMBER, TROPI, BMP, CDP #### [address] [place], [facility] Viscosity Inspector: Reginaldo Mchugh MD MCH (RBC) [Entitic mass] 30.2 pg Normal 25.2-33.5 [facility] Comment on above: Performed By: #### B GREEN PLUMBER, TROPI, BMP, CDP #### [address] [place], [facility] Viscosity Inspector: Reginaldo Mchugh MD MCHC (RBC) [Mass/Vol] 34.5 g/dL Normal 28.4-34.8 [facility] Comment on above: Performed By: #### B GREEN PLUMBER, TROPI, BMP, CDP #### [address] [place], [facility] Viscosity Inspector: Reginaldo Mchugh MD MCV (RBC) [Entitic vol] 87.6 fL Normal 82.6-102.9 [facility] Comment on above: Performed By: #### B GREEN PLUMBER, TROPI, BMP, CDP #### [address] [place], [facility]83 Viscosity Inspector: Reginaldo Mchugh MD Monocytes (Bld) [#/Vol] 0.67 10*3/uL Normal 0.10-1.20 [facility] Comment on above: Performed By: #### B GREEN PLUMBER, TROPI, BMP, CDP #### [address] [place], [facility] Viscosity Inspector: Reginaldo Mchugh MD Monocytes/100 WBC (Bld) 7 % Normal 3-12 [facility] Comment on above: Performed By: #### B GREEN PLUMBER, TROPI, BMP, CDP #### [facility] [address] [place], [place] [id number] Viscosity Inspector: Reginaldo Mchugh MD Neutrophil (Seg) 75 % High 36-65 [facility] Comment on above: Performed By: #### B GREEN PLUMBER, TROPI, BMP, CDP #### [facility] [address] [place], [place] [id number] Viscosity Inspector: Reginaldo Mchugh MD NRBC Automated 0.0 per 100 WBC Normal 0.0 [facility] Comment on above: Performed By: #### B GREEN PLUMBER, TROPI, BMP, CDP #### [address] [place], [place] [phone] Viscosity Inspector: Reginaldo Mchugh MD Platelet mean volume (Bld) [Entitic vol] 9.4 fL Normal 8.1-13.5 [facility] Comment on above: Performed By: #### B GREEN PLUMBER, TROPI, BMP, CDP #### [address] [place], [place] [id number] Viscosity Inspector: Reginaldo Mchugh MD Platelets (Bld) [#/Vol] 233 10*3/uL Normal 138-453 [facility] Comment on above: Performed By: #### B GREEN PLUMBER, TROPI, BMP, CDP #### [address] [place], [place] [id number] Viscosity Inspector: Reginaldo Mchugh MD RBC (Bld) [#/Vol] 4.83 10*6/uL Normal 4.21-5.77 [facility] Comment on above: Performed By: #### B GREEN PLUMBER, TROPI, BMP, CDP #### [address] [place], [place] [id number] Viscosity Inspector: Reginaldo Mchugh MD WBC (Bld) [#/Vol] 10.2 10*3/uL Normal 3.5-11.3 [facility] Comment on above: Performed By: #### B GREEN PLUMBER, TROPI, BMP, CDP #### [facility] [address] [place] [address] Viscosity Inspector: Reginaldo Mchugh MD CT CHEST PULMONARY EMBOLISM W CONTRASTon 04-04-2025 CT CHEST PULMONARY EMBOLISM W CONTRAST EXAM: CTA of the Chest with contrast [...] throughout the pancreas typical of chronic pancreatitis. Interpreted by: Iker Santos MD Signed by: Iker Santos MD 04/04/25 Final result Normal [facility] 1. No evidence of pulmonary embolism or other acute pulmonary abnormality. 2. Calcifications throughout the pancreas typical of chronic pancreatitis. [facility] RIS CONSOLIDATED EXAM: CTA of the Chest with contrast [...] No acute bone or soft tissue abnormality. [facility] RIS Iker Loyd MD - 04/04/2025 EXAM: CTA of the [...] throughout the pancreas typical of chronic pancreatitis. [facility] Radiology Study observation (narrative) [facility] CT CHEST PULMONARY EMBOLISM W CONTRASTOrdered By: Iker Santos on 04-04-2025 [facility] Work Phone: D-Dimer Teston 04-04-2025 D-Dimer Test 0.37 ug/mL FEU Normal 0.00-0.59 [facility] Comment on above: Result Comment: When combined with a low clinical [...] more prevalent in patients with distal DVT. Performed By: #### R #### [facility] [address] [place] [address] Viscosity Inspector: Dariel Mora MD [facility] [address] [place] [address] Viscosity Inspector: Reginaldo Mchugh MD D-Dimer, [facility] 03-23 Fibrin D-dimer FEU (PPP) [Mass/Vol] 0.37 [facility] Comment on above: When combined with a low clinical probability, [...] more prevalent in patients with distal DVT. [facility] EKG 12 Leadon 04-04-2025 Atrial Rate 91 BPM [facility] P [place] 76 degrees [facility] P-R Interval 202 ms [facility] Q-T Interval 384 ms [facility] QRS Duration 112 ms [facility] QTc Calculation (Bazett) 472 ms [facility] R [place] -2 degrees [facility] T [place] 14 degrees [facility] Ventricular Rate 91 BPM [facility] Normal sinus rhythm Septal infarct (cited on or before 19-Mar-2025) Abnormal ECG When compared with ECG of 04-Apr-2025 16:45, (unconfirmed) No significant change was found Confirmed by Yusef Marquez ([id number]) on 04/04/2025 11:59:15 PM [facility] RADIOLOGY Yusef Marquez MD - 04/04/2025 Normal sinus rhythm Septal infarct (cited on or before 19-Mar-2025) Abnormal ECG When compared with ECG of 04-Apr-2025 16:45, (unconfirmed) No significant change was found Confirmed by Yusef Marquez ([id number]) on 04/04/2025 11:59:15 PM [facility] Atrial Rate 100 BPM [facility] P [place] 90 degrees [facility] P-R Interval 198 ms [facility] Q-T Interval 350 ms [facility] QRS Duration 108 ms [facility] QTc Calculation (Bazett) 451 ms [facility] R [place] -11 degrees [facility] T [place] 53 degrees [facility] Ventricular Rate 100 BPM [facility] [employer] Sinus rhythm with Premature atrial complexes Minimal voltage criteria for LVH, may be normal variant ( [place] product ) Septal infarct (cited on or before 19-Mar-2025) Abnormal ECG When compared with ECG of 19-Mar-2025 08:45, Premature atrial complexes are now Present Vent. rate has increased by 34 bpm Serial changes of Septal infarct Present Confirmed by Yusef Marquez ([id number]) on 04/04/2025 11:59:09 PM [facility] Yusef Marquez MD - 04/04/2025 Sinus rhythm with Premature atrial complexes Minimal voltage criteria for LVH, may be normal variant ( Vance product ) Septal infarct (cited on or before 19-Mar-2025) Abnormal ECG When compared with ECG of 19-Mar-2025 08:45, Premature atrial complexes are now Present Vent. rate has increased by 34 bpm Serial changes of Septal infarct Present Confirmed by Yusef Marquez ([id number]) on 04/04/2025 11:59:[address] [facility] Glucose, Whole Bloodon 04-04 Glucose [Mass/Vol] 373 mg/dL High 74 - 100 mg/dL [facility] Interpretation and review of laboratory results Abnormal [facility] Glucose [Mass/Vol] 373 mg/dL High 74-100 [facility] Glucose [Mass/Vol] 386 mg/dL High 74 - 100 mg/dL [facility] Interpretation and review of laboratory results Abnormal [facility] Glucose [Mass/Vol] 386 mg/dL High 74-100 [facility] No Panel Informationon 04-04 [facility] Interpretation and review of laboratory results Abnormal [facility] Portable XR Chest AP single viewon 04-04-2025 No acute abnormality . [facility] EXAMINATION: ONE XRAY VIEW OF THE CHEST 04/04/2025 4:46 pm COMPARISON: 03/19/2025 HISTORY: Acute shortness of breath. FINDINGS: Patient is slightly rotated. Normal cardiomediastinal silhouette. No acute airspace disease, pleural effusion, or pneumothorax. Chronic healed bilateral rib fractures. [facility] RIS CONSOLIDATED Mikie Barker MD - 04/04/2025 EXAMINATION: ONE XRAY VIEW OF THE CHEST 04/04/2025 4:46 pm COMPARISON: 03/19/2025 HISTORY: Acute shortness of breath. FINDINGS: Patient is slightly rotated. Normal cardiomediastinal silhouette. No acute airspace disease, pleural effusion, or pneumothorax. Chronic healed bilateral rib fractures. IMPRESSION: No acute abnormality. [facility] Radiology Study observation (narrative) [facility] Portable XR Chest AP single viewOrdered By: Mikie Barker on 04-04-2025 [facility] Work Phone: Resp Viral Panelon Source: .NASOPHARYNGEAL SWAB Normal [facility] Comment on above: Performed By: #### R PATIENT ADMITTING CLERK #### [employer] [facility] [place], [place] [id number] Viscosity Inspector: Dariel Mora MD [facility] [address] [place] [address] [place] [address] Viscosity Inspector: Reginaldo Mchugh MD TSH reflex to FT4on 04-04-20 25 TSH Qn 1.55 m[IU]/L [facility] TSH w/reflex to FT4on 2024 Thyroid Stim. Horm. 1.55 uIU/mL Normal 0.27-4.20 [facility] Comment on above: Performed By: #### R PATIENT ADMITTING CLERK #### [facility] [employer] [address] [place], [place] [id number] Viscosity Inspector: Dariel Mora MD [facility] [address] [place] [address] Viscosity Inspector: Reginaldo Mchugh MD Troponinon 04-04-2025 Interpretation and review of laboratory results Abnormal [facility] Troponin I.cardiac High sensitivity method [Mass/Vol] 55 ng/L Critically high 0 - 22 ng/L [facility] Comment on above: High Sensitivity Tro ponin values cannot be compared with other Troponin methodologies. Troponin, High Sens 55 ng/L Critically high 0-22 [facility] Comment on above: Result Comment: High Sensitivity Troponin values cannot be compared with other Troponin methodologies. Performed By: #### B H, TROPI ####[facility] , [place] [id number] Lab Director: Reginaldo Mchugh MD Troponin I.cardiac High sensitivity method [Mass/Vol] 42 ng/L High 0 - 22 ng/L [facility] Comment on above: High Sensitivity Tro ponin values cannot be compared with other Troponin methodologies. Troponin, High Sens 42 ng/L High 0-22 [facility] Comment on above: Result Comment: High Sensitivity Troponin values cannot be compared with other Troponin methodologies. Performed By: #### B GREEN PLUMBER, TROPI, BMP, CDP ####[address] , [place] [id number] [facility] Director: Reginaldo Mchugh MD Vascular duplex lower extrem ity venous bilateralon 04-04-2025 Radiology Study observation (narrative) [facility] Venous Blood Gaseson 025 Junaid Test NOT APPLICABLE Normal [facility] Comment on above: Performed By: #### V BG #### [address] [place] [address] Viscosity Inspector: Reginaldo Mchugh MD Performed By: #### R PATIENT ADMITTING CLERK #### [id number] [place], [place] [id number] Viscosity Inspector: Dariel Mora MD [address] [place] [address] Viscosity Inspector: Reginaldo Mchugh MD Body Temp. 37.0 Normal [facility] Comment on above: Performed By: #### V BG #### [facility] [address] [place], [place] [id number] Viscosity Inspector: Reginaldo Mchugh MD Performed By: #### R PATIENT ADMITTING CLERK #### [facility] [address] [facility] [place] [address] Viscosity Inspector: Dariel Mora MD [facility] [address] [place] [address] Viscosity Inspector: Reginaldo Mchugh MD FIO2 28 Normal [facility] Comment on above: Performed By: #### V BG #### [facility] [address] [place], [place] [id number] Viscosity Inspector: Reginaldo Mchugh MD HCO3 (Bld) [Moles/Vol] 29.1 mmol/L Normal 24.0-30.0 [facility] Comment on above: Performed By: #### V BG #### [address] [place] [address] Viscosity Inspector: Reginaldo Mchugh MD O2 Device/Flow/% Cannula Normal [facility] Comment on above: Performed By: #### V BG #### [facility] [address] [place] [address] Dr. [place], [place] [id number] Viscosity Inspector: Reginaldo Mchugh MD Oxygen saturation in Blood 91.0 % High 60.0-85.0 [facility] Comment on above: Performed By: #### V BG #### [facility] [address] [place] [address] Dr. [place], [place] [id number] Viscosity Inspector: Reginaldo Mchugh MD pCO2 42.7 mm Hg Normal 39-55 [facility] Comment on above: Performed By: #### V BG #### [facility] [address] [place], [place] [id number] Viscosity Inspector: Reginaldo Mchugh MD Pco2 Adj'd for Temp. 42.7 mmHg Normal 39.0-55.0 [facility] Comment on above: Performed By: #### V BG #### [facility] [address] [place] [address] Viscosity Inspector: Reginaldo Mchugh MD pH (Bld) 7.451 [pH] High 7.32-7.42 [facility] Comment on above: Performed By: #### V BG #### [facility] [address] [place], [place] [id number] Viscosity Inspector: Reginaldo Mchugh MD pH Adjst'd for Temp. 7.451 High 7.320-7.420 [facility] Comment on above: Performed By: #### V BG #### [facility] [address] [place], [place] [id number] Viscosity Inspector: Reginaldo Mchugh MD pO2 57.5 mm Hg High 30.0-50.0 [facility] Comment on above: Performed By: #### V BG #### [address] [place], [place] [id number] Viscosity Inspector: Reginaldo Mchugh MD pO2 Adj'd for Temp. 57.5 mmHg High 30.0-50.0 [facility] Comment on above: Performed By: #### V BG #### [address] [place] [address] Viscosity Inspector: Reginaldo Mchugh MD Positive Base Excess 4.6 mmol/L High 0.0-2.0 [facility] Comment on above: Performed By: #### V BG #### [facility] [address] [place] [address] Dr. [place], [place] [id number] Viscosity Inspector: Reginaldo Mchugh MD HCO3 (Bld) [Moles/Vol] 25.0 mmol/L Normal 24.0-30.0 [facility] Comment on above: Performed By: #### R PATIENT ADMITTING CLERK #### [facility] [address] [place] [address] Viscosity Inspector: Dariel Mora MD [facility] [address] [place] [address] Viscosity Inspector: Reginaldo Mchugh MD Oxygen saturation in Blood 97.5 % High 60.0-85.0 [facility] Comment on above: Performed By: #### R PATIENT ADMITTING CLERK #### [facility] [address] [place] [address] Viscosity Inspector: Dariel Mora MD [facility] [address] [place] [address] Dr[address] [place], [place] [id number] Viscosity Inspector: Reginaldo Mchugh MD FIO2 21 [facility] Comment on above: Performed By: #### R PATIENT ADMITTING CLERK #### [address] [address] Viscosity Inspector: Dariel Mora MD [facility] [address] [place] [address] [place] [address] Viscosity Inspector: Reginaldo Mchugh MD O2 Device/Flow/% ROOM AIR [facility] Comment on above: Performed By: #### R PATIENT ADMITTING CLERK #### [address] [address] Viscosity Inspector: Dariel Mora MD [facility] [address] [place] [address] Dr. [place], [place] [id number] Viscosity Inspector: Reginaldo Mchugh MD pCO2 41.8 mm Hg Normal 39-55 [facility] Comment on above: Performed By: #### R PATIENT ADMITTING CLERK #### [address] [address] Viscosity Inspector: Dariel Mora MD [facility] [address] [place] [address] Dr. [place], [place] [id number] Viscosity Inspector: Reginaldo Mchugh MD Pco2 Adj'd for Temp. 41.8 mmHg Normal 39.0-55.0 [facility] Comment on above: Performed By: #### R PATIENT ADMITTING CLERK #### [address] [address] Viscosity Inspector: Dariel Mora MD [facility] [address] [place] [address] Dr. [place], [place] [id number] Viscosity Inspector: Reginaldo Mchugh MD pH (Bld) 7.395 [pH] Normal 7.32-7.42 [facility] Comment on above: Performed By: #### R PATIENT ADMITTING CLERK #### [facility] [address] [place] [address] Viscosity Inspector: Dariel Mora MD [facility] [address] [place] [address] Dr. [place], [place] [id number] Viscosity Inspector: Reginaldo Mchugh MD pH Adjst'd for Temp. 7.395 Normal 7.320-7.420 [facility] Comment on above: Performed By: #### R PATIENT ADMITTING CLERK #### [address] [address] Viscosity Inspector: Dariel Mora MD [address] [place], [place] 0839083 Viscosity Inspector: Reginaldo Mchugh MD pO2 99.9 mm Hg High 30.0-50.0 [facility] Comment on above: Performed By: #### R PATIENT ADMITTING CLERK #### [address] [address] Viscosity Inspector: Dariel Mora MD [address] [place] [address] Viscosity Inspector: Reginaldo Mchugh MD pO2 Adj'd for Temp. 99.9 mmHg High 30.0-50.0 [facility] Comment on above: Performed By: #### R PATIENT ADMITTING CLERK #### [address] [address] Viscosity Inspector: Dariel Mora MD [facility] [address] [place] [address] Dr. [place], [place] [phone] Viscosity Inspector: Reginaldo Mchugh MD Positive Base Excess 0.1 mmol/L Normal 0.0-2.0 [facility] Comment on above: Performed By: #### R PATIENT ADMITTING CLERK #### [facility] [address] [place] [address] Viscosity Inspector: Dariel Mora MD [facility] [address] [place] [address] [place] [address] Viscosity Inspector: Reginaldo Mchugh MD XR CHEST PORTABLEon 04-04-20 XR CHEST PORTABLE EXAMINATION: ONE XRAY VIEW OF THE CHEST 04/04/2025 4:46 pm COMPARISON: 03/19/2025 HISTORY: Acute shortness of breath. FINDINGS: Patient is slightly rotated. Normal cardiomediastinal silhouette. No acute airspace disease, pleural effusion, or pneumothorax. Chronic healed bilateral rib fractures. IMPRESSION: No acute abnormality. Interpreted by: Mikie Barker MD Signed by: Mikie Barker MD 04/04/25 Final result Normal [facility] Blood Gas, Venouson 03-19-20 Arterial patency Wrist artery --pre arterial puncture NOT APPLICABLE [facility] HCO3 (Bld) [Moles/Vol] 28.8 mmol/L 24.0 - 30.0 mmol/L [facility] Interpretation and review of laboratory results Abnormal [facility] Oxygen gas flow Oxygen delivery system ROOM AIR [facility] Oxygen saturation in Blood 44.8 % Low 60.0 - 85.0 % [facility] Oxygen/Inspired gas Respiratory system --on ventilator 21 [facility] pCO2, Pankaj 46.9 [facility] pCO2, Pankaj, Temp Adj 46.9 [facility] S [facility] pH, Pankaj 7.406 7.32 - 7.42 [facility] pH, Pankaj, Temp Adj 7.406 7.320 - 7.420 [facility] PO2, Pankaj 24.9 Low [facility] pO2, Pankaj, Temp Adj 24.9 Low [facility] Positive Base Excess, Pankaj 3.3 mmol/L High 0.0 - 2.0 mmol/L [facility] Brain Natri. Peptideon 03-19 Natriuretic peptide B (Bld) [Mass/Vol] 1475 pg/mL High 0-125 [facility] Comment on above: Performed By: #### C P, CDP, TROPI, BNP, MG ####[facility] , [place] 1947383 lab Director: Reginaldo Mchugh MD Brain Natriuretic Peptideon 03-19-2025 Natriuretic peptide B (Bld) [Mass/Vol] 1475 pg/mL High 0 - 125 pg/mL [facility] CBC with Auto Differentialon 03-19-2025 Basophils (Bld) [#/Vol] 0.03 10*3/uL [facility] Immature granulocytes (Bld) [#/Vol] [facility] Interpretation and review of laboratory results Abnormal [facility] Lymphocytes/100 WBC (Bld) 1.64 % [facility] MCH (RBC) [Entitic mass] 30 pg 25.2 - 33.5 pg [facility] Monocytes/100 WBC (Bld) 0.6 % [facility] Neutrophils/100 WBC (Bld) 73 % High 36 - 65 % [facility] Nucleated RBC/100 WBC (Bld) [Ratio] 0 % 0.0 per 100 WBC [facility] Segmented neutrophils/100 WBC (Bld) 6.44 % [facility] WBC other (Bld) [#/Vol] 8.[address] [facility] CBC with Diffon 03-19-2025 Abs. Basophil 0.03 k/uL Normal 0.00-0.20 [facility] Comment on above: Performed By: #### C P, CDP, TROPI, BNP, MG ####[address] [place] [id number] lab Director: Reginaldo Mchugh MD Abs.Imm.Granulocyte <0.03 Normal 0.00-0.30 [facility] Comment on above: Performed By: #### C P, CDP, TROPI, BNP, MG ####[address] [place] [address] lab Director: Reginaldo Mhcugh MD Abs.Neutrophil (Seg) 6.44 k/uL Normal 1.50-8.10 [facility] Comment on above: Performed By: #### C P, CDP, TROPI, BNP, MG ####[address] , [facility]83 [facility] Director: Reginaldo Mchugh MD Basophils/100 WBC (Bld) 0 % Normal 0-2 [facility] Comment on above: Performed By: #### C P, CDP, TROPI, BNP, MG ####[address] [place] 0364183 lab Director: Reginaldo Mchugh MD Eosinophils (Bld) [#/Vol] 0.21 10*3/uL Normal 0.00-0.44 [facility] Comment on above: Performed By: #### C P, CDP, TROPI, BNP, MG ####[address] [place] 0364183 [facility] Director: Reginaldo Mchugh MD Eosinophils/100 WBC (Bld) 2 % Normal 1-4 [facility] Comment on above: Performed By: #### C P, CDP, TROPI, BNP, MG ####[address] , [facility]83 [facility] Director: Reginaldo Mchugh MD Erythrocyte distribution width (RBC) [Ratio] 13.4 % Normal 11.8-14.4 [facility] Comment on above: Performed By: #### C P, CDP, TROPI, BNP, MG ####[address] , [facility]83 [facility] Director: Reginaldo Mchugh MD Hematocrit (Bld) [Volume fraction] 43.6 % Normal 40.7-50.3 [facility] Comment on above: Performed By: #### C P, CDP, TROPI, BNP, MG ####[address] [place] [address] Lab Director: Reginaldo Mchugh MD Hemoglobin (Bld) [Mass/Vol] 14.9 g/dL Normal 13.0-17.0 [facility] Comment on above: Performed By: #### C P, CDP, TROPI, BNP, MG ####[address] [place] 0364183 [facility] Director: Reginaldo Mchugh MD Immature granulocytes/100 WBC (Bld) 0 % Normal 0 [facility] Comment on above: Performed By: #### C P, CDP, TROPI, BNP, MG ####[address] [place] 0364183 lab Director: Reginaldo Mchugh MD Lymphocytes (Bld) [#/Vol] 1.64 10*3/uL Normal 1.10-3.70 [facility] Comment on above: Performed By: #### C P, CDP, TROPI, BNP, MG ####[address] [place] [address]64124([facility])[phone] Director: Reginaldo Mchugh MD Lymphocytes/100 WBC (Bld) 18 % Low 24-43 [facility] Comment on above: Performed By: #### C P, CDP, TROPI, BNP, MG ####[address] , [facility]83 lab Director: Reginaldo Mchugh MD MCH (RBC) [Entitic mass] 30.0 pg Normal 25.2-33.5 [facility] Comment on above: Performed By: #### C P, CDP, TROPI, BNP, MG ####[address] , [facility]83 Lab Director: Reginaldo Mchugh MD MCHC (RBC) [Mass/Vol] 34.2 g/dL Normal 28.4-34.8 [facility] Comment on above: Performed By: #### C P, CDP, TROPI, BNP, MG ####[address] [place] [address] Lab Director: Reginaldo Mchugh MD MCV (RBC) [Entitic vol] 87.9 fL Normal 82.6-102.9 [facility] Comment on above: Performed By: #### C P, CDP, TROPI, BNP, MG ####[address] , [place] 0617983 Lab Director: Reginaldo Mchugh MD Monocytes (Bld) [#/Vol] 0.60 10*3/uL Normal 0.10-1.20 [facility] Comment on above: Performed By: #### C P, CDP, TROPI, BNP, MG ####[address] , [facility]83 lab Director: Reginaldo Mchugh MD Monocytes/100 WBC (Bld) 7 % Normal 3-12 [facility] Comment on above: Performed By: #### C P, CDP, TROPI, BNP, MG ####[address] , [place] [address])[phone] Director: Reginaldo Mchugh MD Neutrophil (Seg) 73 % High 36-65 [facility] Comment on above: Performed By: #### C P, CDP, TROPI, BNP, MG ####[address] , [facility]83 lab Director: Reginaldo Mchugh MD NRBC Automated 0.0 per 100 WBC Normal 0.0 [facility] Comment on above: Performed By: #### C P, CDP, TROPI, BNP, MG ####[address] , [facility]83 Lab Director: Reginaldo Mchugh MD Platelet mean volume (Bld) [Entitic vol] 8.9 fL Normal 8.1-13.5 [facility] Comment on above: Performed By: #### C P, CDP, TROPI, BNP, MG ####[address] , [facility]83 Lab Director: Reginaldo Mchugh MD Platelets (Bld) [#/Vol] 214 10*3/uL Normal 138-453 [facility] Comment on above: Performed By: #### C P, CDP, TROPI, BNP, MG ####[facility] , [place] 1893283 Lab Director: Reginaldo Mchugh MD RBC (Bld) [#/Vol] 4.96 10*6/uL Normal 4.21-5.77 [facility] Comment on above: Performed By: #### C P, CDP, TROPI, BNP, MG ####[address] , [place] 5163383 Lab Director: Reginaldo Mchugh MD WBC (Bld) [#/Vol] 8.9 10*3/uL Normal 3.5-11.3 [facility] Comment on above: Performed By: #### C P, CDP, TROPI, BNP, MG ####[address] , [place] 8[address]1683 Lab Director: Reginaldo Mchugh MD Comp Metabolic Profon 2024 Albumin [Mass/Vol] 4.2 g/dL Normal 3.5-5.2 [facility] Comment on above: Performed By: #### C P, CDP, TROPI, BNP, MG ####[address] [place] [address] Lab Director: Reginaldo Mchugh MD Albumin/Glob Ratio 2.4 Normal 1.0-2.5 [facility] Comment on above: Performed By: #### C P, CDP, TROPI, BNP, MG ####[address] , [place] 7609[address] Lab Director: Reginaldo Mchugh MD Alkaline Phos 89 U/L Normal 40-129 [facility] Comment on above: Performed By: #### C P, CDP, TROPI, BNP, MG ####[address] , [place] 9873283 Lab Director: Reginaldo Mchugh MD ALT [Catalytic activity/Vol] 42 U/L Normal 10-50 [facility] Comment on above: Performed By: #### C P, CDP, TROPI, BNP, MG ####[address] , [place] 8866083 lab Director: Reginaldo Mchugh MD Anion gap [Moles/Vol] 10 mmol/L Normal 9-16 [facility] Comment on above: Performed By: #### C P, CDP, TROPI, BNP, MG ####[address] , [place] [id number] lab Director: Reginaldo Mchugh MD AST [Catalytic activity/Vol] 28 U/L Normal 10-50 [facility] Comment on above: Performed By: #### C P, CDP, TROPI, BNP, MG ####[address] , [place] 2407083 lab Director: Reginaldo Mchugh MD Bilirubin [Mass/Vol] 0.6 mg/dL Normal 0.00-1.20 [facility] Comment on above: Performed By: #### C P, CDP, TROPI, BNP, MG ####[address] [place] [address] lab Director: Reginaldo Mchugh MD BUN/CRE Ratio 17 Normal 9-20 [facility] Comment on above: Performed By: #### C P, CDP, TROPI, BNP, MG ####[address] [place] [address] lab Director: Reginaldo Mchugh MD Calcium [Mass/Vol] 9.1 mg/dL Normal 8.6-10.4 [facility] Comment on above: Performed By: #### C P, CDP, TROPI, BNP, MG ####[address] , [facility]83 lab Director: Reginaldo Mchugh MD Chloride [Moles/Vol] 98 mmol/L Normal 98-107 [facility] Comment on above: Performed By: #### C P, CDP, TROPI, BNP, MG ####[facility] [place] [address] lab Director: Reginaldo Mchugh MD CO2 [Moles/Vol] 31 mmol/L Normal 20-31 [facility] Comment on above: Performed By: #### C P, CDP, TROPI, BNP, MG ####[facility] [place] [address] lab Director: Reginaldo Mchugh MD Creatinine [Mass/Vol] 0.6 mg/dL Low 0.70-1.20 [facility] Comment on above: Performed By: #### C P, CDP, TROPI, BNP, MG ####[address] , [facility]83 lab Director: Reginaldo Mchugh MD GFR/1.73 sq M.predicted among non-blacks MDRD (S/P/Bld) [Vol rate/Area] mL/min/{1.73_m2} Normal >60 [facility] Comment on above: Result Comment: These results are not intended for [...] following therapy that affects renal tubular secretion. Performed By: #### C P, CDP, TROPI, BNP, MG ####[facility] , [facility]83 lab Director: Reginaldo Mchugh MD Glucose [Mass/Vol] 195 mg/dL High 74-99 [facility] Comment on above: Performed By: #### C P, CDP, TROPI, BNP, MG ####[address] [place] [address] Lab Director: Reginaldo Mchugh MD Potassium [Moles/Vol] 3.0 mmol/L Low 3.7-5.3 [facility] Comment on above: Performed By: #### C P, CDP, TROPI, BNP, MG ####[facility] , [place] [id number] lab Director: Reginaldo Mchugh MD Protein [Mass/Vol] 5.9 g/dL Low 6.6-8.7 [facility] Comment on above: Performed By: #### C P, CDP, TROPI, BNP, MG ####[address] [place] [address] lab Director: Reginaldo Mchugh MD Sodium [Moles/Vol] 139 mmol/L Normal 136-145 [facility] Comment on above: Performed By: #### C P, CDP, TROPI, BNP, MG ####[address] [place] [address] lab Director: Reginaldo Mchugh MD Urea nitrogen [Mass/Vol] 10 mg/dL Normal 8-23 [facility] Comment on above: Performed By: #### C P, CDP, TROPI, BNP, MG ####[address] [place] [address] lab Director: Reginaldo Mchugh MD Comprehensive Metabolic Pane [facility] 03-19-2025 Albumin [Mass/Vol] 4.2 g/dL 3.5 - 5.2 g/dL [facility] Albumin/Globulin [Mass ratio] 2.4 {ratio} 1.0 - 2.5 [facility] ALP [Catalytic activity/Vol] 89 U/L 40 - 129 U/L [facility] ALT [Catalytic activity/Vol] 42 U/L 10 - 50 U/L [facility] Anion gap [Moles/Vol] 10 mmol/L 9 - 16 mmol/L [facility] AST [Catalytic activity/Vol] 28 U/L 10 - 50 U/L [facility] Bilirubin [Mass/Vol] 0.6 mg/dL 0.00 - 1.20 mg/dL [facility] Calcium [Mass/Vol] 9.1 mg/dL 8.6 - 10. 4 mg/dL [facility] Chloride [Moles/Vol] 98 mmol/L 98 - 10 7 mmol/L [facility] CO2 [Moles/Vol] 31 mmol/L 20 - 31 mmol/L [facility] Creatinine [Mass/Vol] 0.6 mg/dL Low 0.70 - 1.20 mg/dL [facility] Est, Jia Ryant Rate - PINF [facility] Comment on above: These results are not intended for use [...] following therapy that affects renal tubular secretion. Glucose [Mass/Vol] 195 mg/dL High 74 - 99 mg/dL [facility] Potassium [Moles/Vol] 3 mmol/L Low 3.7 - 5.3 mmol/L [facility] Protein [Mass/Vol] 5.9 g/dL Low 6.6 - 8.7 g/dL [facility] Sodium [Moles/Vol] 139 mmol/L 136 - 145 mmol/L [facility] Urea nitrogen [Mass/Vol] 10 mg/dL 8 - 23 mg/dL [facility] Urea nitrogen/Creatinine [Mass ratio] 17 mg/mg 9 - 20 [facility] D-Dimer Teston 03-19-2025 D-Dimer Test 0.38 ug/mL FEU Normal 0.00-0.59 [facility] Comment on above: Result Comment: When combined with a low clinical [...] more prevalent in patients with distal DVT. Performed By: #### R #### [facility] [address] [place] [address] Viscosity Inspector: Dariel Mora MD [facility] [address] [place] [address] Viscosity Inspector: Reginaldo Mchugh MD D-Dimer, Quantitativeon 02-22 Fibrin D-dimer FEU (PPP) [Mass/Vol] 0.38 [facility] Comment on above: When combined with a low clinical probability, [...] more prevalent in patients with distal DVT. [facility] Magnesiumon 03-19-2025 Magnesium [Mass/Vol] 1.6 mg/dL 1.6 - 2 .4 mg/dL [facility] Magnesium [Mass/Vol] 1.6 mg/dL Normal 1.6-2.4 [facility] Comment on above: Performed By: #### C P, CDP, TROPI, BNP, MG ####[facility] [place] [address] lab Director: Reginaldo Mchugh MD No Panel Informationon 03-19 Interpretation and review of laboratory results Abnormal [facility] Portable XR Chest AP single viewon 03-19-2025 No evidence of acute cardiopulmonary process. [facility] RIS CONSOLIDATED EXAMINATION: ONE XRAY VIEW OF THE CHEST 03/19/2025 9:11 am COMPARISON: None. HISTORY: ORDERING SYSTEM PROVIDED HISTORY: Shortness of Breath TECHNOLOGIST PROVIDED HISTORY: Shortness of Breath FINDINGS: No pulmonary consolidation.There is no pleural effusion or pneumothorax.The cardiomediastinal silhouette is normal.No acute osseous abnormality. Healed right-sided rib fractures. [facility] RIS CONSOLIDATED Solitario Mcintosh MD - 03/19/2025 EXAMINATION: ONE XRAY VIEW OF THE CHEST 03/19/2025 9:11 am COMPARISON: None. HISTORY: ORDERING SYSTEM PROVIDED HISTORY: Shortness of Breath TECHNOLOGIST PROVIDED HISTORY: Shortness of Breath FINDINGS: No pulmonary consolidation.There is no pleural effusion or pneumothorax.The cardiomediastinal silhouette is normal.No acute osseous abnormality. Healed right-sided rib fractures. IMPRESSION: No evidence of acute cardiopulmonary process. [facility] Radiology Study observation (narrative) [facility] Portable XR Chest AP single viewOrdered By: Solitario Mcintosh on 03-19-2025 [facility] Work Phone: Specimen Rejectionon 025 Reason for rejection Unable to perform testing: Specimen hemolyzed. Normal [facility] Comment on above: Result Comment: JAMIE RICHARDS IN ER NOTIFIED @1018 Performed By: #### R EJEC #### [facility] [address] [place], [place] [id number] Viscosity Inspector: Reginaldo Mchugh MD Source of sample .BLOOD Normal [facility] Comment on above: Performed By: #### R EJEC #### [facility] [address] [place], [place] [id number] Viscosity Inspector: Reginaldo Mchugh MD Test ordered TROPI [id number] [facility] Comment on above: Performed By: #### R EJEC #### [facility] [address] [place] [address] Viscosity Inspector: Reginaldo Mchugh MD Troponinon 03-19-2025 Interpretation and review of laboratory results Abnormal [facility] Troponin I.cardiac High sensitivity method [Mass/Vol] 47 ng/L High 0 - 22 ng/L [facility] Comment on above: High Sensitivity Tro ponin values cannot be compared with other Troponin methodologies. [facility] Troponin, High Sens 47 ng/L High 0-22 [facility] Comment on above: Result Comment: High Sensitivity Troponin values cannot be compared with other Troponin methodologies. Performed By: #### T ROPI ####[facility] [place] , [place] [id number] Lab Director: Reginaldo Mchugh MD Troponin I.cardiac High sensitivity method [Mass/Vol] 52 ng/L Critically high 0 - 22 ng/L [facility] Comment on above: High Sensitivity Tro ponin values cannot be compared with other Troponin methodologies. Troponin, High Sens 52 ng/L Critically high 0-22 [facility] Comment on above: Result Comment: High Sensitivity Troponin values cannot be compared with other Troponin methodologies. Performed By: #### C P, CDP, TROPI, BNP, MG ####[address] , [place] [id number] Lab Director: Reginaldo Mchugh MD Venous Blood Gaseson 025 Junaid Test NOT APPLICABLE [facility] Comment on above: Performed By: #### R PATIENT ADMITTING CLERK #### [address] [address] Viscosity Inspector: Dariel Mora MD [address] [place] [address] Viscosity Inspector: Reginaldo Mchugh MD Body Temp. 37.0 [facility] Comment on above: Performed By: #### R PATIENT ADMITTING CLERK #### [address] [address] Viscosity Inspector: Dariel Mora MD [address] [place] [address] Viscosity Inspector: Reginaldo Mchugh MD FIO2 21 [facility] Comment on above: Performed By: #### R PATIENT ADMITTING CLERK #### [address] [address] Viscosity Inspector: Dariel Mora MD [address] [place], [place] [phone] Viscosity Inspector: Reginaldo Mchugh MD HCO3 (Bld) [Moles/Vol] 28.8 mmol/L Normal 24.0-30.0 [facility] Comment on above: Performed By: #### R PATIENT ADMITTING CLERK #### [address] [address] Viscosity Inspector: Dariel Mora MD [address] [place], [place] [id number] Viscosity Inspector: Reginaldo Mchugh MD O2 Device/Flow/% ROOM AIR [facility] Comment on above: Performed By: #### R PATIENT ADMITTING CLERK #### [address] [address] Viscosity Inspector: Dariel Mora MD [facility] [address] [place] [address] [place] [address] Viscosity Inspector: Reginaldo Mchugh MD Oxygen saturation in Blood 44.8 % Low 60.0-85.0 [facility] Comment on above: Performed By: #### R PATIENT ADMITTING CLERK #### [facility] [address] [place] [address] Viscosity Inspector: Dariel Mora MD [facility] [address] [place] [address] Dr. [place], [place] [id number] Viscosity Inspector: Reginaldo Mchugh MD pCO2 46.9 mm Hg Normal 39-55 [facility] Comment on above: Performed By: #### R PATIENT ADMITTING CLERK #### [address] [address] Viscosity Inspector: Dariel Mora MD [address] [place] [phone] Viscosity Inspector: Reginaldo Mchugh MD Pco2 Adj'd for Temp. 46.9 mmHg Normal 39.0-55.0 [facility] Comment on above: Performed By: #### R PATIENT ADMITTING CLERK #### [facility] [address] [place] [address] Viscosity Inspector: Dariel Mora MD [facility] [address] [place] [address] Dr. [place], [place] [id number] Viscosity Inspector: Reginaldo Mchugh MD pH (Bld) 7.406 [pH] Normal 7.32-7.42 [facility] Comment on above: Performed By: #### R PATIENT ADMITTING CLERK #### [facility] [address] [place] [address] Viscosity Inspector: Dariel Mora MD [facility] [address] [place] [address] [place] [address] Viscosity Inspector: Reginaldo Mchugh MD pH Adjst'd for Temp. 7.406 Normal 7.320-7.420 [facility] Comment on above: Performed By: #### R PATIENT ADMITTING CLERK #### [facility] [address] [place] [address] Viscosity Inspector: Dariel Mora MD [facility] [address] [place] [address] Viscosity Inspector: Reginaldo Mchugh MD pO2 24.9 mm Hg Low 30.0-50.0 [facility] Comment on above: Performed By: #### R PATIENT ADMITTING CLERK #### [facility] [address] [place] [address] Viscosity Inspector: Dariel Mora MD [facility] [address] [place] [address] [place] [address] Viscosity Inspector: Reginaldo Mchugh MD pO2 Adj'd for Temp. 24.9 mmHg Low 30.0-50.0 [facility] Comment on above: Performed By: #### R PATIENT ADMITTING CLERK #### [facility] [address] [place] [address] Viscosity Inspector: Dariel Mora MD [facility] [address] [place] [address] [place] [address] Viscosity Inspector: Reginaldo Mchugh MD Positive Base Excess 3.3 mmol/L High 0.0-2.0 [facility] Comment on above: Performed By: #### R PATIENT ADMITTING CLERK #### [address] [address] Viscosity Inspector: Dariel Mora MD [facility] [address] [place] [address] [place] [address] Viscosity Inspector: Reginaldo Mchugh MD XR CHEST PORTABLEon 03-19-20 XR CHEST PORTABLE EXAMINATION: ONE XRAY VIEW OF THE CHEST 03/19/2025 9:11 am COMPARISON: None. HISTORY: ORDERING SYSTEM PROVIDED HISTORY: Shortness of Breath TECHNOLOGIST PROVIDED HISTORY: Shortness of Breath FINDINGS: No pulmonary consolidation.There is no pleural effusion or pneumothorax.The cardiomediastinal silhouette is normal.No acute osseous abnormality. Healed right-sided rib fractures. IMPRESSION: No evidence of acute cardiopulmonary process. Interpreted by: Solitario Mcintosh MD Signed by: Solitario Mcintosh MD 03/19/25 Final result Normal [facility] CBC AUTO DIFFon 04-04-2023 BASO # 0.0 103/ul Normal 0.0-0.1 [facility] Comment on above: Performed By: #### C BC ####[facility] [address] [place] [address]Dr. Garima Pulliam Basophils/100 WBC (Bld) 0.3 % Normal 0.2-2.0 [facility] Comment on above: Performed By: #### C BC ####[facility] Lfift[address]ob[address] [place], [place] [address]Dr. Chapisrenu Pulliam EO # 0.3 103/ul Normal 0.0-0.7 [facility] Comment on above: Performed By: #### C BC ####[facility] Vqexrwvwyn[address] [place], [place] [address]Dr. Garima Pulliam Eosinophils/100 WBC (Bld) 2.8 % Normal 0.9-7.0 [facility] Comment on above: Performed By: #### C BC ####[facility] Mzhgihavbv[address] [place], [place] [address]Dr. Garima Pulliam Erythrocyte distribution width (RBC) [Ratio] 13.4 % Normal 11.0-15.0 [facility] Comment on above: Performed By: #### C BC ####[facility] Kxret[address]syf[address] [place], [place] [address]Dr. Garima Pulliam Hematocrit (Bld) [Volume fraction] 45.7 % Normal 42.0-54.0 [facility] Comment on above: Performed By: #### C BC ####[facility] P[address]vzukpxs[address] [place], [place] [address]Dr. Garima Pulliam Hemoglobin (Bld) [Mass/Vol] 15.2 g/dL Normal 14.0-18.0 [facility] Comment on above: Performed By: #### C BC ####[facility] Rqnvtfyhsb[address] [place], [place] [address]Dr. Garima Pulliam IG # 0.02 10e3/ul Normal 0.00-0.03 [facility] Comment on above: Performed By: #### C BC ####[facility] [address] [place] [address]DrAdalberto Garima Pulliam IG % 0.2 % Normal 0.0-0.5 [facility] Comment on above: Performed By: #### C BC ####[facility] Idsfxytiyx3[address] [place] [address]DrAdalberto Garima Pulliam LYMPH # 2.1 103/ul Normal 1.2-3.8 [facility] Comment on above: Performed By: #### C BC ####[facility] Uehwqamyku[address] [place], [place] [address]DrAdalberto Garima Heraclio Lymphocytes/100 WBC (Bld) 23.7 % Normal 20.5-60.0 [facility] Comment on above: Performed By: #### C BC ####[facility] Fflfkhxkq[address] [place], [place] [address]DrAdalberto Garima Heraclio MANUAL DIFF REQ NO Normal [facility] Comment on above: Performed By: #### C BC ####[facility] V[address]racwlpb[address] [place], [place] [address]DrAdalberto Garima Heraclio MCH (RBC) [Entitic mass] 30.4 pg Normal 25.9-34.0 [facility] Comment on above: Performed By: #### C BC ####[facility] Cuajvbzzfr[address] [place], [place] [address]DrAdalberto Garima Pulliam MCHC (RBC) [Mass/Vol] 33.3 g/dL Normal 29.9-35.2 [facility] Comment on above: Performed By: #### C BC ####[facility] Aixcrbmkzz[address] [place], [place] [address]DrAdalberto Garima Heraclio MCV (RBC) [Entitic vol] 91.4 fL Normal 80.0-94.0 [facility] Comment on above: Performed By: #### C BC ####[facility] Xvjjjxuvys[address] [place], [place] [address]DrAdalberto Pulliam MONO # 0.7 103/ul Normal 0.3-0.8 [facility] Comment on above: Performed By: #### C BC ####[facility] Ics[address]igcjs[address] [place] [address]Dr. Garima Pulliam Monocytes/100 WBC (Bld) 8.3 % Normal 1.7-12.0 [facility] Comment on above: Performed By: #### C BC ####[facility] W[address]ys[address]ix[address] [place] [id number]. Garima Pulliam NEUT # 5.8 103/ul Normal 1.4-6.5 [facility] Comment on above: Performed By: #### C BC ####[facility] Sakxuuckbw[address] [place] [address]Dr. Garima Pulliam Neutrophils/100 WBC (Bld) 64.7 % Normal 43.0-75.0 [facility] Comment on above: Performed By: #### C BC ####[facility] Htsanknbpr[address] [place] [address]Dr. Garima Pulliam Platelet mean volume (Bld) [Entitic vol] 8.6 fL Critically low 9.5-13.5 [facility] Comment on above: Performed By: #### C BC ####[facility] Abssvwpupx[address] [place] [address]Dr. Garima Pulliam PLT 230 103/ul Normal 150-450 [facility] Comment on above: Performed By: #### C BC ####[facility] Zxtdjpyiil36[address] [place] [address]Dr. Garima Pulliam RBC 5.00 106/ul Normal 4.70-6.10 [facility] Comment on above: Performed By: #### C BC ####[facility] Cmxmuxzsgu49[address] [place] [id number]. Garima Pulliam WBC 9.0 103/ul Normal 4.0-11.0 [facility] Comment on above: Performed By: #### C BC ####[facility] Lyjdrxnqjd[address] [place] [address]Dr. Garima Pulliam MAGNESIUMon 04-04-2023 Magnesium [Mass/Vol] 1.8 mg/dL Normal 1.8-2.4 [facility] Comment on above: Performed By: #### M G ####[facility] [address]rllswie[address] [place] [address]DrAdalberto Pulliam PROF 14(COMP METB)on 023 Albumin [Mass/Vol] 3.8 g/dL Normal 3.4-5.0 [facility] Comment on above: Performed By: #### C MP ####[facility] Awxxyjczww2244 [place] [address]DrAdalberto Pulliam Albumin/Globulin [Mass ratio] 1.2 {ratio} Normal [facility] Comment on above: Performed By: #### C MP ####[facility] Nkyfteylai[address] [place], [place] [address]DrAdalberto Pulliam ALP [Catalytic activity/Vol] 84 U/L Normal 46-116 [facility] Comment on above: Performed By: #### C MP ####[facility] Abeobjcklb[address] [place], [place] [address]Dr. Garima Pulliam ALT [Catalytic activity/Vol] 31 U/L Normal 16-63 [facility] Comment on above: Performed By: #### C MP ####[facility] Axcubzxflg[address] [place], [place] [address]DrAdalberto Pulliam Anion gap [Moles/Vol] 12.2 mmol/L Normal [facility] Comment on above: Performed By: #### C MP ####[facility] Ocbjbqtcbs[address] [place], [place] [address]DrAdalberto Pulliam AST [Catalytic activity/Vol] 23 U/L Normal 15-37 [facility] Comment on above: Performed By: #### C MP ####[facility] Bjbfkwupag8304 [place] [address]DrAdalberto Pulliam Bilirubin [Mass/Vol] 0.5 mg/dL Normal 0.2-1.0 [facility] Comment on above: Performed By: #### C MP ####[facility] Ywemknfkxh47[address] [place] [address]DrAdalberto Pulliam Calcium [Mass/Vol] 9.2 mg/dL Normal 8.5-10.1 [facility] Comment on above: Performed By: #### C MP ####[facility] Qmszamrvqs[address]61 [place] [address]Dr. Garima Pulliam Chloride [Moles/Vol] 103 mmol/L Normal 98-107 [facility] Comment on above: Performed By: #### C MP ####[facility] Pxqbjozyij3[address] [place] [address]Dr. Garima Pulliam CO2 [Moles/Vol] 28.5 mmol/L Normal 21.0-32.0 [facility] Comment on above: Performed By: #### C MP ####[facility] Mlswrrloqk[address] [place], [place] [address]Dr. Garima Pulliam Creatinine [Mass/Vol] 0.74 mg/dL Normal 0.70-1.30 [facility] Comment on above: Performed By: #### C MP ####[facility] Wzcrelahyh[address] [place], [place] [address]Dr. Garima Pulliam EGFR-AF BURUNDIAN >60 Normal >=60 [facility] Comment on above: Performed By: #### C MP ####[facility] Tdwimxglrc[address] [place], [place] [address]Dr. Garima Pulliam EGFR-NON AF BURUNDIAN >60 Normal >=60 [facility] Comment on above: Performed By: #### C MP ####[facility] Zlcgjrpoxh[address] [place], [place] [address]Dr. Garima Pulliam Globulin (S) [Mass/Vol] 3.1 g/dL Normal [facility] Comment on above: Performed By: #### C MP ####[facility] Lhjkaysvcz[address] [place] [address]Dr. Garima Pulliam Glucose [Mass/Vol] 93 mg/dL Normal 74-106 [facility] Comment on above: Performed By: #### C MP ####[facility] Pcrmvsaxjd4369 [place] [address]Dr. Garima Pulliam Potassium [Moles/Vol] 3.7 mmol/L Normal 3.5-5.1 [facility] Comment on above: Performed By: #### C MP ####[facility] Jtdmxipkob19[address] [place] [address]Dr. Garima Pulliam Protein [Mass/Vol] 6.9 g/dL Normal 6.4-8.2 [facility] Comment on above: Performed By: #### C MP ####[facility] Jzumyxmupb07[address] [place] [address]Dr. Garima Pulliam Sodium [Moles/Vol] 140 mmol/L Normal 136-145 [facility] Comment on above: Performed By: #### C MP ####[facility] Jcmdmaxmlv1050 [place] [address]Dr. Garima Pulliam Urea nitrogen [Mass/Vol] 8.0 mg/dL Normal 7.0-18.0 [facility] Comment on above: Performed By: #### C MP ####[facility] Lollyaavyd[address] [place], [place] [address]Dr. Garima Pulliam Urea nitrogen/Creatinine [Mass ratio] 10.8 mg/mg Normal [facility] Comment on above: Performed By: #### C MP ####[facility] Opcatyoksu[address] [place], [place] [address]Dr. Garima Pulliam AMMONIAon 03-30-2023 Ammonia (P) [Moles/Vol] 11 umol/L Normal 11-32 [facility] Comment on above: Performed By: #### A MM ####[facility] Tpxkqkvruw[address] [place], [place] [address]Dr. Garima Pulliam CARDIAC NASH ADMITon 023 CK [Catalytic activity/Vol] 232 U/L Normal 39-308 [facility] Comment on above: Performed By: #### C MP, CMADM ####[facility] Oimyxswznl[address] [place], [place] [address]Dr. Garima Pulliam CK.MB [Mass/Vol] 4.83 ng/mL Critically high <=3.60 [facility] Comment on above: Performed By: #### C MP, CMADM ####[facility] Mxgovkgjuy[address] [place], [place] [address]Dr. Garima Pulliam HSTROP 10.5 pg/mL Normal 4.0-76.1 [facility] Comment on above: Result Comment: CUT- OFF POINTS HAVE BEEN ESTABLISHED BASED ON THE FOURTH UNIVERSAL DEFINITIONS OF MYOCARDIALINFARCTION. THE UPPER REFERENCE LIMIT (URL) OF TROPONIN, DEFINED THE 99TH PERCENTILE OFcTnI DISTRIBUTION IN A REFERENCE POPULATION, HAS BEEN CONFIRMED THE DECISION THRESHOLDFOR DC DIAGNOSIS. Performed By: #### C DAVID, CMADM ####[facility] Yfmcynnaww[address] [place], [place] [address]Dr. Garima Pulliam DORIS 79 ng/mL Normal 16-96 [facility] Comment on above: Performed By: #### C DAVID, CMADM ####[facility] Jwtskqqdwo197[address] [place], [place] [address]Dr. Garima Pulliam CBC AUTO DIFFon 03-30-2023 BASO # 0.0 103/ul Normal 0.0-0.1 [facility] Comment on above: Performed By: #### C BC ####[facility] Tcizjdafcp[address] [place], [place] [address]Dr. Garima Pulliam Basophils/100 WBC (Bld) 0.1 % Critically low 0.2-2.0 [facility] Comment on above: Performed By: #### C BC ####[facility] Tecpryoity[address] [place], [place] [address]Dr. Garima Pulliam EO # 0.3 103/ul Normal 0.0-0.7 [facility] Comment on above: Performed By: #### C BC ####[facility] Sqoqbndehw[address] [place], [place] [address]Dr. Garima Pulliam Eosinophils/100 WBC (Bld) 3.3 % Normal 0.9-7.0 [facility] Comment on above: Performed By: #### C BC ####[facility] Dpxjehttby[address] [place], [place] [address]Dr. Garima Pulliam Erythrocyte distribution width (RBC) [Ratio] 13.5 % Normal 11.0-15.0 [facility] Comment on above: Performed By: #### C BC ####[facility] Mwstxskaql[address] [place], [place] [address]Dr. Garima Pulliam Hematocrit (Bld) [Volume fraction] 42.9 % Normal 42.0-54.0 [facility] Comment on above: Performed By: #### C BC ####[facility] Rnebplgqbe2791 [place] [address]DrAdalberto Garima Pulliam Hemoglobin (Bld) [Mass/Vol] 13.9 g/dL Critically low 14.0-18.0 [facility] Comment on above: Performed By: #### C BC ####[facility] Lrilflkzng[address] [place], [place] [address]DrAdalberto Nationrenu Pulliam IG # 0.01 10e3/ul Normal 0.00-0.03 [facility] Comment on above: Performed By: #### C BC ####[facility] Nbfvkjuphi[address] [place], [place] [address]DrAdalberto Pulliam IG % 0.1 % Normal 0.0-0.5 [facility] Comment on above: Performed By: #### C BC ####[facility] Eggsikkfac9[address] [place], [place] [address]DrAdalberto Chapisrenu Pulliam LYMPH # 1.7 103/ul Normal 1.2-3.8 [facility] Comment on above: Performed By: #### C BC ####[facility] Zwpoiujwtr[address] [place], [place] [address]DrAdalberto Chapisrenu Pulliam Lymphocytes/100 WBC (Bld) 22.8 % Normal 20.5-60.0 [facility] Comment on above: Performed By: #### C BC ####[facility] Sfhbtywicv[address] [place], [place] [address]DrAdalberto Chapisrenu Pulliam MANUAL DIFF REQ NO Normal [facility] Comment on above: Performed By: #### C BC ####[facility] Ygimvceueb[address] [place], [place] [address]DrAdalberto Pulliam MCH (RBC) [Entitic mass] 30.5 pg Normal 25.9-34.0 [facility] Comment on above: Performed By: #### C BC ####[facility] Pjusjonzel[address] [place], [place] [address]DrAdalberto Pulliam MCHC (RBC) [Mass/Vol] 32.4 g/dL Normal 29.9-35.2 [facility] Comment on above: Performed By: #### C BC ####[facility] Ysfciaoctt[address] [place] [address]DrAdalberto Pulliam MCV (RBC) [Entitic vol] 94.1 fL Critically high 80.0-94.0 [facility] Comment on above: Performed By: #### C BC ####[facility] Ottwnwwveh22[address] [place], [place] [address]DrAdalberto Pulliam MONO # 0.7 103/ul Normal 0.3-0.8 [facility] Comment on above: Performed By: #### C BC ####[facility] Vvjuyxeyoc[address] [place], [place] [address]DrAdalberto Pulliam Monocytes/100 WBC (Bld) 8.6 % Normal 1.7-12.0 [facility] Comment on above: Performed By: #### C BC ####[facility] Bxffpdtzui[address] [place], [place] [address]DrAdalberto Pulliam NEUT # 4.9 103/ul Normal 1.4-6.5 [facility] Comment on above: Performed By: #### C BC ####[facility] H[address]cjeezctl[address] [place], [place] [address]DrAdalberto Pulliam Neutrophils/100 WBC (Bld) 65.1 % Normal 43.0-75.0 [facility] Comment on above: Performed By: #### C BC ####[facility] Xxoylqevmu[address] [place], [place] [address]DrAdalberto Pulliam Platelet mean volume (Bld) [Entitic vol] 8.5 fL Critically low 9.5-13.5 [facility] Comment on above: Performed By: #### C BC ####[facility] Qyznmxoisd[address] [place], [place] [address]DrAdalberto Pulliam PLT 219 103/ul Normal 150-450 [facility] Comment on above: Performed By: #### C BC ####[facility] Qutru[address] [place], [place] [address]DrAdalberto Pulliam RBC 4.56 106/ul Critically low 4.70-6.10 [facility] Comment on above: Performed By: #### C BC ####[facility] Yhbjgprdou1543 [place] [address]Dr. Garima Pulliam WBC 7.6 103/ul Normal 4.0-11.0 [facility] Comment on above: Performed By: #### C BC ####[facility] Lwtwbxkjuj2438 [place] [address]Dr. Garima Pulliam LACTATE/LACTIC ACIDon 2022 Lactate [Moles/Vol] 1.2 mmol/L Normal 0.4-2.0 [facility] Comment on above: Performed By: #### L ACT ####[facility] Evrhwkmexz[address] [place], [place] [address]Dr. Garima Pulliam MAGNESIUMon 03-30-2023 Magnesium [Mass/Vol] 1.8 mg/dL Normal 1.8-2.4 [facility] Comment on above: Performed By: #### M G ####[facility] Irsijxtswz[address] [place], [place] [address]Dr. Garima Pulliam PROF 14(COMP METB)on 023 Albumin [Mass/Vol] 3.5 g/dL Normal 3.4-5.0 [facility] Comment on above: Performed By: #### C NANCY HERNANDEZ ####[facility] Kaujyrsmlu50[address] [place] [address]Dr. Garima Pulliam Albumin/Globulin [Mass ratio] 1.2 {ratio} Normal [facility] Comment on above: Performed By: #### C DAVID, NANCY ####[facility] Gwfctyxsla8835 [place] [address]Dr. Garima Pulliam ALP [Catalytic activity/Vol] 85 U/L Normal 46-116 [facility] Comment on above: Performed By: #### C DAVID, NANCY ####[facility] [address]xqpx[address] [place] [address]Dr. Garima Pulliam ALT [Catalytic activity/Vol] 29 U/L Normal 16-63 [facility] Comment on above: Performed By: #### C MP, CMADM ####[facility] Nmyhupttha[address]842 [place] [id number]. Garima Pulliam Anion gap [Moles/Vol] 8.0 mmol/L Normal [facility] Comment on above: Performed By: #### C DAVID, CMADM ####[facility] Whlafmjhqa1304 [place] [id number]. Garima Pulliam AST [Catalytic activity/Vol] 18 U/L Normal 15-37 [facility] Comment on above: Performed By: #### C DAVID, CMADM ####[facility] Jbtcazssrg1700 [place] [id number]. Garima Pulliam Bilirubin [Mass/Vol] 0.4 mg/dL Normal 0.2-1.0 [facility] Comment on above: Performed By: #### C DAVID, CMADM ####[facility] Awbffjaicc64[address] [place] [address]Dr. Garima Pulliam Calcium [Mass/Vol] 8.8 mg/dL Normal 8.5-10.1 [facility] Comment on above: Performed By: #### C DAVID, CMADM ####[facility] Zfeqxqukrs7[address] [place] [address]Dr. Garima Pulliam Chloride [Moles/Vol] 108 mmol/L Critically high 98-107 [facility] Comment on above: Performed By: #### C DAVID, CMADM ####[facility] Dciigqihus6178 [place] [id number]. Garima Pulliam CO2 [Moles/Vol] 29.6 mmol/L Normal 21.0-32.0 [facility] Comment on above: Performed By: #### C DAVID, CMADM ####[facility] Kjubikxfvy4551 [place] [id number]. Garima Pulliam Creatinine [Mass/Vol] 0.77 mg/dL Normal 0.70-1.30 [facility] Comment on above: Performed By: #### C DAVID, CMADM ####[facility] Bnvueoyqcc6429 [place] [id number]. Garima Pulliam EGFR-AF BURUNDIAN >60 Normal >=60 [facility] Comment on above: Performed By: #### C DAVID, CMADM ####[facility] Vvsdiokrux6674 [place] [phone]. Garima Pulliam EGFR-NON AF BURUNDIAN >60 Normal >=60 [facility] Comment on above: Performed By: #### C DAVID, CMADM ####[facility] Rlcyqwuhvn0783 [place] [address]Dr. Garima Pulliam Globulin (S) [Mass/Vol] 2.8 g/dL Normal [facility] Comment on above: Performed By: #### C DAVID, CMADM ####[facility] Pddbaxjmhb9678 [place] [address]Dr. Garima Pulliam Glucose [Mass/Vol] 207 mg/dL Critically high 74-106 [facility] Comment on above: Performed By: #### C DAVID, CMADM ####[facility] Dzvpzkmauf7074 [place] [address]Dr. Garima Pulliam Potassium [Moles/Vol] 4.6 mmol/L Normal 3.5-5.1 [facility] Comment on above: Performed By: #### C DAVID, CMADM ####[facility] Dypsygbtak3491 [place] [address]Dr. Garima Pulliam Protein [Mass/Vol] 6.3 g/dL Critically low 6.4-8.2 [facility] Comment on above: Performed By: #### C DAVID, CMADM ####[facility] Nqqtekexzt2499 [place] [address]Dr. Garima Pulliam Sodium [Moles/Vol] 141 mmol/L Normal 136-145 [facility] Comment on above: Performed By: #### C DAVID, CMADM ####[facility] Qlzbpmdcte7934 [place] [address]Dr. Garima Pulliam Urea nitrogen [Mass/Vol] 9.0 mg/dL Normal 7.0-18.0 [facility] Comment on above: Performed By: #### C DAVID, CMADM ####[facility] Nbzmkxincy6723 [place] [address]Dr. Garima Pulliam Urea nitrogen/Creatinine [Mass ratio] 11.7 mg/mg Normal [facility] Comment on above: Performed By: #### C MP, CMADM ####[facility] Xkxwiipkda1587 [place] [address]Dr. Garima Pulliam XR CHEST 1 Von 03-30-2023 XR CHEST 1 V Normal [facility] BNPon 03-27-2023 Natriuretic peptide B (Bld) [Mass/Vol] 251.0 pg/mL Normal <=900.0 [facility] Comment on above: Performed By: #### C MP, BNP, LIPID ####[facility] Lwbrnpmtqz1748 [place] [address]Dr. Garima Pulliam GLYCOHEMOGLOBIN A1Con 2022 ADA RECOMMENDATION SEE BELOW Normal [facility] Comment on above: Result Comment: ADA RECOMMENDED LIMIT 4.0 - 6.0 ADA THERAPEUTIC TARGET < 7.0 ACTION SUGGESTED > 7.0 Performed By: #### A 1C ####[facility] Coemqrpgsh[address] [place], [place] [address]Dr. Garima Pulliam Glucose [Mass/Vol] 180 mg/dL Normal [facility] Comment on above: Performed By: #### A 1C ####[facility] Gqcsuhbbst[address] [place], [place] [address]Dr. Garima Pulliam HbA1c (Bld) [Mass fraction] 7.9 % Critically high 4.5-6.2 [facility] Comment on above: Performed By: #### A 1C ####[facility] Yqktoxhcdl[address] [place], [place] [address]Dr. Garima Pulliam HEMOGRAM AND PLATELon 2022 Hematocrit (Bld) [Volume fraction] 45.7 % Normal 42.0-54.0 [facility] Comment on above: Performed By: #### H H ####[facility] Dxrektzoud[address] [place], [place] [address]Dr. Garima Pulliam Hemoglobin (Bld) [Mass/Vol] 15.1 g/dL Normal 14.0-18.0 [facility] Comment on above: Performed By: #### H H ####[facility] Ed[address] [place] [id number][address] Garima Pulliam MCH (RBC) [Entitic mass] 30.0 pg Normal 25.9-34.0 [facility] Comment on above: Performed By: #### H H ####[facility] Uxadnyoquk9[address] [place] [address]Dr. Garima Pulliam MCHC (RBC) [Mass/Vol] 33.0 g/dL Normal 29.9-35.2 [facility] Comment on above: Performed By: #### H H ####[facility] Rjcwqtiybc9841 [place] [address]Dr. Garima Pulliam MCV (RBC) [Entitic vol] 90.7 fL Normal 80.0-94.0 [facility] Comment on above: Performed By: #### H H ####[facility] Ehikogvkwa8222 [place] [address]Dr. Garima Pulliam PLT 222 103/ul Normal 150-450 [facility] Comment on above: Performed By: #### H H ####[facility] Egxnfqewsa[address] [place], [place] [address]Dr. Garima Pulliam RBC 5.04 106/ul Normal 4.70-6.10 [facility] Comment on above: Performed By: #### H H ####[facility] Rojlwscqym9917 [place] [address]Dr. Garima Pulliam WBC 8.7 103/ul Normal 4.0-11.0 [facility] Comment on above: Performed By: #### H H ####[facility] Uiubwhkrqt[address] [place], [place] [address]Dr. Garima Pulliam LIPID PROFILEon 03-27-2023 CHOL-HDL RATIO NORM SEE BELOW Normal [facility] Comment on above: Result Comment: 3.3 - 4.4 LOW RISK 4.4 - 7.1 AVERAGE RISK 7.1 - 11.0 MODERATE RISK >11.0 HIGH RISK Performed By: #### C MP, BNP, LIPID ####[facility] Yeqrsakfiq8829 [place] [address]Dr. Garima Pulliam Cholesterol [Mass/Vol] 113 mg/dL Normal <=200 [facility] Comment on above: Performed By: #### C MP, BNP, LIPID ####[facility] Bccyinqnuj85[address] [place] [address]Dr. Garima Pulliam Cholesterol in HDL [Mass/Vol] 51 mg/dL Normal 40-60 [facility] Comment on above: Performed By: #### C MP, BNP, LIPID ####[facility] Zzcjsxnlxq5869 [place] [address]Dr. Chapisrenu Pulliam Cholesterol in LDL [Mass/Vol] 49.8 mg/dL Normal [facility] Comment on above: Performed By: #### C MP, BNP, LIPID ####[facility] Sbjyhowkfd4475 [place] [address]Dr. Garima Pulliam Cholesterol.total/Cho lesterol in HDL [Mass ratio] 2.2 {ratio} Normal [facility] Comment on above: Performed By: #### C MP, BNP, LIPID ####[facility] Zpxgumjjxs4583 [place] [address]Dr. Garima Pulliam HDL NORMAL > or = 60 mg/dl - LO W CARDIOVASCULAR RISK <40 mg/dl - HIGH CARDIOVASCULAR RISK Normal [facility] Comment on above: Performed By: #### C MP, BNP, LIPID ####[facility] Rlapdsrvwy9037 [place] [address]Dr. Garima Pulliam LDL CALC NORMAL SEE BELOW Normal [facility] Comment on above: Result Comment: <100 mg/dl OPTIMAL 100 - 129 mg/dl NEAR OR ABOVE OPTIMAL 130 - 159 mg/dl BORDERLINE HIGH 160 - 189 mg/dl HIGH >190 mg/dl VERY HIGH Performed By: #### C MP, BNP, LIPID ####[facility] Tlzfheboko97[address] [place] [address]Dr. Garima Pulliam Triglyceride [Mass/Vol] 61 mg/dL Normal <=150 [facility] Comment on above: Performed By: #### C MP, BNP, LIPID ####[facility] Dtvdpbezvp3446 [place] [address]Dr. Garima Pulliam VLDL CALC 12.2 mg/dL Normal [facility] Comment on above: Performed By: #### C MP, BNP, LIPID ####[facility] Qjhudsdgzb4000 [place] [id number]. Garima Pulliam PROF 14(COMP METB)on 023 Albumin [Mass/Vol] 3.5 g/dL Normal 3.4-5.0 [facility] Comment on above: Performed By: #### C MP, BNP, LIPID ####[facility] Otgdjqwfgn9455 [place] [address]Dr. Garima Pulliam Albumin/Globulin [Mass ratio] 1.2 {ratio} Normal [facility] Comment on above: Performed By: #### C MP, BNP, LIPID ####[facility] Brheefbsoq0235 [place] [address]Dr. Garima Pulliam ALP [Catalytic activity/Vol] 82 U/L Normal 46-116 [facility] Comment on above: Performed By: #### C MP, BNP, LIPID ####[facility] Ufwjgwykzh9501 [place] [address]Dr. Garima Pulliam ALT [Catalytic activity/Vol] 33 U/L Normal 16-63 [facility] Comment on above: Performed By: #### C MP, BNP, LIPID ####[facility] Orlthyjpth2719 [place] [address]Dr. Garima Pulliam Anion gap [Moles/Vol] 9.9 mmol/L Normal [facility] Comment on above: Performed By: #### C MP, BNP, LIPID ####[facility] Cyxcilkgse0407 [place] [address]Dr. Garima Pulliam AST [Catalytic activity/Vol] 24 U/L Normal 15-37 [facility] Comment on above: Performed By: #### C MP, BNP, LIPID ####[facility] Oqhmtqsuip3859 [place] [address]Dr. Garima Pulliam Bilirubin [Mass/Vol] 0.6 mg/dL Normal 0.2-1.0 [facility] Comment on above: Performed By: #### C MP, BNP, LIPID ####[facility] Nvnzjljyvm6766 [place] [address]Dr. Garima Pulliam Calcium [Mass/Vol] 9.2 mg/dL Normal 8.5-10.1 [facility] Comment on above: Performed By: #### C MP, BNP, LIPID ####[facility] Yflprrsarq3074 [place] [address]Dr. Garima Pulliam Chloride [Moles/Vol] 106 mmol/L Normal 98-107 [facility] Comment on above: Performed By: #### C MP, BNP, LIPID ####[facility] Yxkxsurzyw2136 [place] [address]Dr. Chapisrenu Heraclio CO2 [Moles/Vol] 32.3 mmol/L Critically high 21.0-32.0 [facility] Comment on above: Performed By: #### C MP, BNP, LIPID ####[facility] Ungopvhdnd[address] [place], [place] [address]Dr. Garima Pulliam Creatinine [Mass/Vol] 0.70 mg/dL Normal 0.70-1.30 [facility] Comment on above: Performed By: #### C MP, BNP, LIPID ####[facility] Gkgmwyrylj[address] [place], [place] [address]Dr. Chapisrenu Heraclio EGFR-AF BURUNDIAN >60 Normal >=60 [facility] Comment on above: Performed By: #### C MP, BNP, LIPID ####[facility] Aeuayjjeph025[address] [place], [place] [address]Dr. Garima Pulliam EGFR-NON AF BURUNDIAN >60 Normal >=60 [facility] Comment on above: Performed By: #### C MP, BNP, LIPID ####[facility] Hdpalqdyrh6716 [place] [address]Dr. Garima Pulliam Globulin (S) [Mass/Vol] 2.9 g/dL Normal [facility] Comment on above: Performed By: #### C MP, BNP, LIPID ####[facility] Epxzunbkpn2358 [place] [address]Dr. Garima Pulliam Glucose [Mass/Vol] 111 mg/dL Critically high 74-106 [facility] Comment on above: Performed By: #### C MP, BNP, LIPID ####[facility] Yaxohnakur[address] [place], [place] [address]Dr. Garima Pulliam Potassium [Moles/Vol] 4.2 mmol/L Normal 3.5-5.1 [facility] Comment on above: Performed By: #### C MP, BNP, LIPID ####[facility] Tlqlaxcmpl8090 [place] [address]Dr. Garima Pulliam Protein [Mass/Vol] 6.4 g/dL Normal 6.4-8.2 [facility] Comment on above: Performed By: #### C MP, BNP, LIPID ####[facility] Bmpccdrrne[address] [place], [place] [address]Dr. Garima Pulliam Sodium [Moles/Vol] 144 mmol/L Normal 136-145 [facility] Comment on above: Performed By: #### C MP, BNP, LIPID ####[facility] Iaogbbuhmh43[address] [place], [place] [address]Dr. Garima Pulliam Urea nitrogen [Mass/Vol] 7.0 mg/dL Normal 7.0-18.0 [facility] Comment on above: Performed By: #### C MP, BNP, LIPID ####[facility] Hrmybsyrpi[address] [place], [place] [address]Dr. Garima Pulliam Urea nitrogen/Creatinine [Mass ratio] 10.0 mg/mg Normal [facility] Comment on above: Performed By: #### C MP, BNP, LIPID ####[facility] Zxgaqymayb84[address] [place], [place] [address]Dr. Garima Pulliam BNPon 03-22-2023 Natriuretic peptide B (Bld) [Mass/Vol] 103.0 pg/mL Normal <=900.0 [facility] Comment on above: Performed By: #### B GREEN PLUMBER, BMP ####[facility] Ehhaxeqjwc69[address] [place], [place] [address]Dr. Garima Pulliam CBC AUTO DIFFon 03-22-2023 BASO # 0.0 103/ul Normal 0.0-0.1 [facility] Comment on above: Performed By: #### C BC ####[facility] Efpkojtprw[address] [place], [place] [address]Dr. Garima Pulliam Basophils/100 WBC (Bld) 0.3 % Normal 0.2-2.0 [facility] Comment on above: Performed By: #### C BC ####[facility] Kdbvwatess[address] [place], [place] [address]Dr. Garima Pulliam EO # 0.2 103/ul Normal 0.0-0.7 [facility] Comment on above: Performed By: #### C BC ####[facility] Fywwtsonpe[address] [place], [place] [address]Dr. Garima Pulliam Eosinophils/100 WBC (Bld) 2.2 % Normal 0.9-7.0 [facility] Comment on above: Performed By: #### C BC ####[facility] Enphgpyfhs[address] [place], [place] [address]Dr. Garima Pulliam Erythrocyte distribution width (RBC) [Ratio] 13.2 % Normal 11.0-15.0 [facility] Comment on above: Performed By: #### C BC ####[facility] Zqcxebbnql[address] [place], [place] [address]Dr. Garima Pulliam Hematocrit (Bld) [Volume fraction] 43.4 % Normal 42.0-54.0 [facility] Comment on above: Performed By: #### C BC ####[facility] Yctvpdenlr14[address] [place], [place] [address]Dr. Garima Pulliam Hemoglobin (Bld) [Mass/Vol] 14.3 g/dL Normal 14.0-18.0 [facility] Comment on above: Performed By: #### C BC ####[facility] Whcjgyyqzp[address] [place], [place] [address]Dr. Garima Pulliam IG # 0.02 10e3/ul Normal 0.00-0.03 [facility] Comment on above: Performed By: #### C BC ####[facility] Mduhshjdmp[address] [place], [place] [address]Dr. Garima Pulliam IG % 0.3 % Normal 0.0-0.5 [facility] Comment on above: Performed By: #### C BC ####[facility] Pofmfqrysb[address] [place], [place] [address]Dr. Garima Pulliam LYMPH # 2.0 103/ul Normal 1.2-3.8 [facility] Comment on above: Performed By: #### C BC ####[facility] Vczliowioc1053 [place] [address]Dr. Garima Pulliam Lymphocytes/100 WBC (Bld) 24.8 % Normal 20.5-60.0 [facility] Comment on above: Performed By: #### C BC ####[facility] Bcvufavpbk5808 [place] [address]DrAdalberto Pulliam MANUAL DIFF REQ NO Normal [facility] Comment on above: Performed By: #### C BC ####[facility] Lxjifbqgwr2466 [place] [address]DrAdalberto Pulliam MCH (RBC) [Entitic mass] 30.0 pg Normal 25.9-34.0 [facility] Comment on above: Performed By: #### C BC ####[facility] Zstcewyeat9[address] [place], [place] [address]Dr. Garima Pulliam MCHC (RBC) [Mass/Vol] 32.9 g/dL Normal 29.9-35.2 [facility] Comment on above: Performed By: #### C BC ####[facility] Cjcreyjnqv[address] [place], [place] [address]DrAdalberto Pulliam MCV (RBC) [Entitic vol] 91.0 fL Normal 80.0-94.0 [facility] Comment on above: Performed By: #### C BC ####[facility] Ryihhjtvkr[address] [place], [place] [address]DrAdalberto Pulliam MONO # 0.8 103/ul Normal 0.3-0.8 [facility] Comment on above: Performed By: #### C BC ####[facility] Qbdsomuolc[address] [place], [place] [address]DrAdalberto Pulliam Monocytes/100 WBC (Bld) 9.7 % Normal 1.7-12.0 [facility] Comment on above: Performed By: #### C BC ####[facility] Rfzdqgiiyn84[address] [place], [place] [address]DrAdalberto Pulliam NEUT # 4.9 103/ul Normal 1.4-6.5 [facility] Comment on above: Performed By: #### C BC ####[facility] Uanlfsqrjs2620 [place] [address]Dr. Garima Pulliam Neutrophils/100 WBC (Bld) 62.7 % Normal 43.0-75.0 [facility] Comment on above: Performed By: #### C BC ####[facility] Rolfwdptwx9167 [place] [address]Dr. Garima Pulliam Platelet mean volume (Bld) [Entitic vol] 8.8 fL Critically low 9.5-13.5 [facility] Comment on above: Performed By: #### C BC ####[facility] Bqvxtvboxp0504 [place] [address]Dr. Garima Pulliam PLT 198 103/ul Normal 150-450 [facility] Comment on above: Performed By: #### C BC ####[facility] Strqvpfjkm2842 [place] [address]Dr. Garima Pulliam RBC 4.77 106/ul Normal 4.70-6.10 [facility] Comment on above: Performed By: #### C BC ####[facility] Hfaxvouvep7301 [place] [address]Dr. Garima Pulliam WBC 7.9 103/ul Normal 4.0-11.0 [facility] Comment on above: Performed By: #### C BC ####[facility] Dmbrshenhz9101 [place] [id number]. Garima Pulliam D-DIMERon 03-22-2023 D-DIMER 0.85 mg/L FEU Critically high <=0.59 [facility] Comment on above: Performed By: #### D DIM ####[facility] Puazdqsiek[address] [place], [place] [address]Dr. Garima Pulliam D-DIMER COMMENTS SEE BELOW Normal [...] hospitalization. Performed By: #### D DIM ####[facility] Utupnfgkwu764[address] [place], [place] [address]Dr. Garima Pulliam PROF CHEM 8 (BAS METB)on Anion gap [Moles/Vol] 6.9 mmol/L Normal [facility] Comment on above: Performed By: #### B GREEN PLUMBER, BMP ####[facility] Hyhjkhdtpc[address] [place], [place] [address]Dr. Garima Pulliam Calcium [Mass/Vol] 8.9 mg/dL Normal 8.5-10.1 [facility] Comment on above: Performed By: #### B GREEN PLUMBER, BMP ####[facility] Iirwesrmun[address] [place], [place] [address]Dr. Garima Pulliam Chloride [Moles/Vol] 101 mmol/L Normal 98-107 [facility] Comment on above: Performed By: #### B GREEN PLUMBER, BMP ####[facility] Tkwjxtmjie[address] [place], [place] [address]Dr. Garima Pulliam CO2 [Moles/Vol] 30.7 mmol/L Normal 21.0-32.0 [facility] Comment on above: Performed By: #### B GREEN PLUMBER, BMP ####[facility] Pqmoejfymr[address] [place], [place] [address]Dr. Garima Pulliam Creatinine [Mass/Vol] 0.82 mg/dL Normal 0.70-1.30 [facility] Comment on above: Performed By: #### B GREEN PLUMBER, BMP ####[facility] Ituaxxpwki[address] [place], [place] [address]Dr. Garima Pulliam EGFR-AF BURUNDIAN >60 Normal >=60 [facility] Comment on above: Performed By: #### B GREEN PLUMBER, BMP ####[facility] Qfsfxsrbbt[address] [place], [place] [address]Dr. Garima Pulliam EGFR-NON AF BUR[place]DIAN >60 Normal >=60 [facility] Comment on above: Performed By: #### B GREEN PLUMBER, BMP ####[facility] Vvgwqmxyfs[address] [place], [place] [address]Dr. Garima Pulliam Glucose [Mass/Vol] 339 mg/dL Critically high 74-106 T [facility] Comment on above: Performed By: #### B GREEN PLUMBER, BMP ####[facility] Ahgrbsocyb90[address] [place], [place] [address]Dr. Garima Pulliam Potassium [Moles/Vol] 3.6 mmol/L Normal 3.5-5.1 [facility] Comment on above: Performed By: #### B GREEN PLUMBER, BMP ####[facility] Gyyauomtsy[address] [place], [place] [address]Dr. Garima Pulliam Sodium [Moles/Vol] 135 mmol/L Critically low 136-145 [facility] Comment on above: Performed By: #### B GREEN PLUMBER, BMP ####[facility] Wddywcmsbg[address] [place], [place] [address]Dr. Garima Pulliam Urea nitrogen [Mass/Vol] 11.0 mg/dL Normal 7.0-18.0 [facility] Comment on above: Performed By: #### B GREEN PLUMBER, BMP ####[facility] Sqxagsrupg[address] [place], [place] [address]Dr. Garima Pulliam Urea nitrogen/Creatinine [Mass ratio] 13.4 mg/mg Normal [facility] Comment on above: Performed By: #### B GREEN PLUMBER, BMP ####[facility] Qpmxadoric25[address] [place], [place] [address]Dr. Garima Pulliam US PANKAJ DOP LEG BILon 023 US PANKAJ DOP LEG BENOIT Normal [facility] BNPon 03-18-2023 Natriuretic peptide B (Bld) [Mass/Vol] 226.0 pg/mL Normal <=900.0 [facility] Comment on above: Performed By: #### B GREEN PLUMBER, BMP ####[facility] Goinxbiseu[address] [place], [place] [address]Dr. Garima Pulliam CBC AUTO DIFFon 03-18-2023 BASO # 0.0 103/ul Normal 0.0-0.1 [facility] Comment on above: Performed By: #### C BC ####[facility] Mmtgonbgxe4753 [place] [id number]. Garima Pulliam Basophils/100 WBC (Bld) 0.2 % Normal 0.2-2.0 [facility] Comment on above: Performed By: #### C BC ####[facility] [address] [place], [place] [address]Dr. Garima Pulliam EO # 0.3 103/ul Normal 0.0-0.7 [facility] Comment on above: Performed By: #### C BC ####[facility] Sdvtfcksnv[address] [place], [place] [id number]. Garima Pulliam Eosinophils/100 WBC (Bld) 2.5 % Normal 0.9-7.0 [facility] Comment on above: Performed By: #### C BC ####[facility] Ytsjwfcoue[address] [place], [place] [address]Dr. Garima Pulliam Erythrocyte distribution width (RBC) [Ratio] 13.2 % Normal 11.0-15.0 [facility] Comment on above: Performed By: #### C BC ####[facility] Wwalimnjpw[address] [place], [place] [address]Dr. Garima Pulliam Hematocrit (Bld) [Volume fraction] 45.8 % Normal 42.0-54.0 [facility] Comment on above: Performed By: #### C BC ####[facility] Nutdtrswaw[address] [place], [place] [id number]. Garima Pulliam Hemoglobin (Bld) [Mass/Vol] 15.3 g/dL Normal 14.0-18.0 [facility] Comment on above: Performed By: #### C BC ####[facility] Qlebctyubb[address] [place], [place] [address]Dr. Garima Pulliam IG # 0.02 10e3/ul Normal 0.00-0.03 [facility] Comment on above: Performed By: #### C BC ####[facility] Iytvpttgwc232[address] [place], [place] [address]Dr. Garima Pulliam IG % 0.2 % Normal 0.0-0.5 [facility] Comment on above: Performed By: #### C BC ####[facility] Xryosmoory05[address] [place] [id number]. Garima Pulliam LYMPH # 1.8 103/ul Normal 1.2-3.8 [facility] Comment on above: Performed By: #### C BC ####[facility] Mjioybgnsr4256 [place] [id number]. Garima Heraclio Lymphocytes/100 WBC (Bld) 18.3 % Critically low 20.5-60.0 [facility] Comment on above: Performed By: #### C BC ####[facility] Enoevtglgw6278 [place] [id number]. Chapisrenu Pulliam MANUAL DIFF REQ NO Normal [facility] Comment on above: Performed By: #### C BC ####[facility] Xncacrfxnv9047 [place] [id number]. Garima Heraclio MCH (RBC) [Entitic mass] 30.5 pg Normal 25.9-34.0 [facility] Comment on above: Performed By: #### C BC ####[facility] Cwjuqszpxu7593 [place] [id number]. Garima Pulliam MCHC (RBC) [Mass/Vol] 33.4 g/dL Normal 29.9-35.2 [facility] Comment on above: Performed By: #### C BC ####[facility] Hcgeckscxc0909 [place] [id number]. Garima Heraclio MCV (RBC) [Entitic vol] 91.2 fL Normal 80.0-94.0 [facility] Comment on above: Performed By: #### C BC ####[facility] Hurlrxchma2785 [place] [id number]. Garima Pulliam MONO # 0.8 103/ul Normal 0.3-0.8 [facility] Comment on above: Performed By: #### C BC ####[facility] Vvygfsardx0151 [place] [id number]. Garima Heraclio Monocytes/100 WBC (Bld) 7.6 % Normal 1.7-12.0 [facility] Comment on above: Performed By: #### C BC ####[facility] Dnsttkjzbi4002 [place] [id number]. Garima Pulliam NEUT # 7.0 103/ul Critically high 1.4-6.5 [facility] Comment on above: Performed By: #### C BC ####[facility] Lpghuqopnq4771 [place] [phone]. Garima Pulliam Neutrophils/100 WBC (Bld) 71.2 % Normal 43.0-75.0 [facility] Comment on above: Performed By: #### C BC ####[facility] Ylxblnjlhw8413 [place] [phone]. Garima Pulliam Platelet mean volume (Bld) [Entitic vol] 8.9 fL Critically low 9.5-13.5 [facility] Comment on above: Performed By: #### C BC ####[facility] Gkjrnaaxrb4347 [place] [address]Dr. Garima Pulliam PLT 217 103/ul Normal 150-450 [facility] Comment on above: Performed By: #### C BC ####[facility] Fuxyjhanoe50[address] [place], [place] [address]Dr. Garima Pulliam RBC 5.02 106/ul Normal 4.70-6.10 [facility] Comment on above: Performed By: #### C BC ####[facility] Houwppeugb8[address] [place], [place] [address]Dr. Garima Pulliam WBC 9.8 103/ul Normal 4.0-11.0 [facility] Comment on above: Performed By: #### C BC ####[facility] Ddzdjmvrfg260[address] [place], [place] [address]Dr. Garima Pulliam CRPon 03-18-2023 CRP 0.1 mg/dL Normal <=1.0 [facility] Comment on above: Performed By: #### C RP ####[facility] Serltjwxcg785[address] [place], [place] [address]Dr. Chapisrenu Pulliam PROF CHEM 8 (BAS METB)on Anion gap [Moles/Vol] 10.4 mmol/L Normal [facility] Comment on above: Performed By: #### B GREEN PLUMBER, BMP ####[facility] Mmnljcwsrv2211 [place] [id number]. Garima Pulliam Calcium [Mass/Vol] 8.8 mg/dL Normal 8.5-10.1 [facility] Comment on above: Performed By: #### B GREEN PLUMBER, BMP ####[facility] Tnbuaqumfx6396 [place] [phone]. Garima Pulliam Chloride [Moles/Vol] 97 mmol/L Critically low 98-107 [facility] Comment on above: Performed By: #### B GREEN PLUMBER, BMP ####[facility] Cktavwvqpz4945 [place] [address]Dr. Garima Pulliam CO2 [Moles/Vol] 31.2 mmol/L Normal 21.0-32.0 [facility] Comment on above: Performed By: #### B GREEN PLUMBER, BMP ####[facility] Ttjuqyhcyi06[address] [place], [place] [address]Dr. Garima Pulliam Creatinine [Mass/Vol] 0.91 mg/dL Normal 0.70-1.30 [facility] Comment on above: Performed By: #### B GREEN PLUMBER, BMP ####[facility] Lissxlmbkq779[address] [place], [place] [address]Dr. Garima Pulliam EGFR-AF BURUNDIAN >60 Normal >=60 [facility] Comment on above: Performed By: #### B GREEN PLUMBER, BMP ####[facility] Dcqtkfencd3910 [place] [address]Dr. Garima Pulliam EGFR-NON AF BURUNDIAN >60 Normal >=60 [facility] Comment on above: Performed By: #### B GREEN PLUMBER, BMP ####[facility] Ddvegevdzi5438 [place] [phone]. Garima Pulliam Glucose [Mass/Vol] 315 mg/dL Critically high 74-106 [facility] Comment on above: Performed By: #### B GREEN PLUMBER, BMP ####[facility] Ugcdfsnowr4344 [place] [phone]. Garima Pulliam Potassium [Moles/Vol] 3.6 mmol/L Normal 3.5-5.1 [facility] Comment on above: Performed By: #### B GREEN PLUMBER, BMP ####[facility] Pztuadlodu846[address] [place], [place] [address]Dr. Garima Pulliam Sodium [Moles/Vol] 135 mmol/L Critically low 136-145 Th [facility] Comment on above: Performed By: #### B GREEN PLUMBER, BMP ####[facility] Ednhotyfke365[address] [place], [place] [address]Dr. Garima Pulliam Urea nitrogen [Mass/Vol] 7.0 mg/dL Normal 7.0-18.0 [facility] Comment on above: Performed By: #### B GREEN PLUMBER, BMP ####[facility] Unaqypwsxp270[address] [place], [place] [address]Dr. Garima Pulliam Urea nitrogen/Creatinine [Mass ratio] 7.7 mg/mg Normal [facility] Comment on above: Performed By: #### B GREEN PLUMBER, BMP ####[facility] Wbwvbppavc[address] [place], [place] [address]Dr. Garima Pulliam SED RATE WESTERGRENon 2022 SED RATE 8 mm/hr Normal <=20 [facility] Comment on above: Performed By: #### S EDR ####[facility] Zevnzjqpnu[address] [place], [place] [address]Dr. Garima Pulliam BNPon 03-16-2023 Natriuretic peptide B (Bld) [Mass/Vol] 241.0 pg/mL Normal <=900.0 [facility] Comment on above: Performed By: #### B GREEN PLUMBER, BMP, HSTROPN ####[facility] Tsmximmrwo[address] [place], [place] [address]Dr. Garima Pulliam CBC AUTO DIFFon 03-16-2023 BASO # 0.0 103/ul Normal 0.0-0.1 [facility] Comment on above: Performed By: #### C BC ####[facility] Cewrcznavy[address] [place], [place] [address]Dr. Garima Pulliam Basophils/100 WBC (Bld) 0.2 % Normal 0.2-2.0 [facility] Comment on above: Performed By: #### C BC ####[facility] Ripaycpwzz6879 [place] [id number]. Garima Pulliam EO # 0.2 103/ul Normal 0.0-0.7 [facility] Comment on above: Performed By: #### C BC ####[facility] Pbkystpsyq3916 [place] [phone]. Garima Pulliam Eosinophils/100 WBC (Bld) 2.7 % Normal 0.9-7.0 [facility] Comment on above: Performed By: #### C BC ####[facility] Esuikvdfwu4536 [place] [address]Dr. Garima Pulliam Erythrocyte distribution width (RBC) [Ratio] 13.1 % Normal 11.0-15.0 [facility] Comment on above: Performed By: #### C BC ####[facility] Lifgssdong1747 [place] [address]Dr. Garima Pulliam Hematocrit (Bld) [Volume fraction] 41.8 % Critically low 42.0-54.0 [facility] Comment on above: Performed By: #### C BC ####[facility] Kknqelmxlj4443 [place] [address]Dr. Garima Pulliam Hemoglobin (Bld) [Mass/Vol] 14.0 g/dL Normal 14.0-18.0 [facility] Comment on above: Performed By: #### C BC ####[facility] Vvfksgfojo0310 [place] [address]Dr. Garima Pulliam IG # 0.03 10e3/ul Normal 0.00-0.03 [facility] Comment on above: Performed By: #### C BC ####[facility] Jyoqeamgjg7691 [place] [address]Dr. Garima Pulliam IG % 0.3 % Normal 0.0-0.5 [facility] Comment on above: Performed By: #### C BC ####[facility] Etghakoqxp2458 [place] [address]Dr. Graima Pulliam LYMPH # 2.1 103/ul Normal 1.2-3.8 [facility] Comment on above: Performed By: #### C BC ####[facility] Jhpzxmizju7170 [place] [id number]. Garima Heraclio Lymphocytes/100 WBC (Bld) 24.2 % Normal 20.5-60.0 [facility] Comment on above: Performed By: #### C BC ####[facility] Sfrebdqacx3259 [place] [id number]. Garima Heraclio MANUAL DIFF REQ NO Normal [facility] Comment on above: Performed By: #### C BC ####[facility] Eibabejwmo5419 [place] [phone]. Garima Heraclio MCH (RBC) [Entitic mass] 30.2 pg Normal 25.9-34.0 [facility] Comment on above: Performed By: #### C BC ####[facility] Eqptmnekwi8512 [place] [address]Dr. Garima Heraclio MCHC (RBC) [Mass/Vol] 33.5 g/dL Normal 29.9-35.2 [facility] Comment on above: Performed By: #### C BC ####[facility] Ynzicrcrpu6189 [place] [address]Dr. Garima Heraclio MCV (RBC) [Entitic vol] 90.1 fL Normal 80.0-94.0 [facility] Comment on above: Performed By: #### C BC ####[facility] Xtfermtqvd[address] [place], [place] [address]Dr. Garima Pulliam MONO # 0.6 103/ul Normal 0.3-0.8 [facility] Comment on above: Performed By: #### C BC ####[facility] Egtbxhmpon7930 [place] [address]Dr. Chapisrenu Pulliam Monocytes/100 WBC (Bld) 7.4 % Normal 1.7-12.0 [facility] Comment on above: Performed By: #### C BC ####[facility] Uxlafxbscd8931 [place] [address]Dr. Garima Pulliam NEUT # 5.6 103/ul Normal 1.4-6.5 [facility] Comment on above: Performed By: #### C BC ####[facility] Muvuhtrzis4521 [place] [address]Dr. Garima Pulliam Neutrophils/100 WBC (Bld) 65.2 % Normal 43.0-75.0 [facility] Comment on above: Performed By: #### C BC ####[facility] Zlpoxxlzrf0885 [place] [address]Dr. Garima Heraclio Platelet mean volume (Bld) [Entitic vol] 8.7 fL Critically low 9.5-13.5 [facility] Comment on above: Performed By: #### C BC ####[facility] Fgyngusfwy1621 [place] [address]Dr. Garima Pulliam PLT 195 103/ul Normal 150-450 [facility] Comment on above: Performed By: #### C BC ####[facility] Zkcuxjlojm389[address] [place], [place] [address]Dr. Garima Pulliam RBC 4.64 106/ul Critically low 4.70-6.10 [facility] Comment on above: Performed By: #### C BC ####[facility] Ngolsipend86[address] [place], [place] [address]Dr. Garima Pulliam WBC 8.6 103/ul Normal 4.0-11.0 [facility] Comment on above: Performed By: #### C BC ####[facility] Vyjkwhrbea[address] [place], [place] [address]Dr. Garima Pulliam PROF CHEM 8 (BAS METB)on Anion gap [Moles/Vol] 6.7 mmol/L Normal [facility] Comment on above: Performed By: #### B GREEN PLUMBER, BMP, HSTROPN ####[facility] Lcqdzhobhs2571 [place] [address]Dr. Garima Pulliam Calcium [Mass/Vol] 8.8 mg/dL Normal 8.5-10.1 [facility] Comment on above: Performed By: #### B GREEN PLUMBER, BMP, HSTROPN ####[facility] Xwfjyyphpw1876 [place] [address]Dr. Garima Pulliam Chloride [Moles/Vol] 106 mmol/L Normal 98-107 [facility] Comment on above: Performed By: #### B GREEN PLUMBER, BMP, HSTROPN ####[facility] Zpiofhyrnp6424 [place] [address]Dr. Garima Pulliam CO2 [Moles/Vol] 31.4 mmol/L Normal 21.0-32.0 [facility] Comment on above: Performed By: #### B GREEN PLUMBER, BMP, HSTROPN ####[facility] Gpnkmijrtq3025 [place] [address]Dr. Garima Pulliam Creatinine [Mass/Vol] 0.75 mg/dL Normal 0.70-1.30 [facility] Comment on above: Performed By: #### B GREEN PLUMBER, BMP, HSTROPN ####[facility] Totqdwisnt7823[address] [place], [place] [address]Dr. Garima uPlliam EGFR-AF BURUNDIAN >60 Normal >=60 [facility] Comment on above: Performed By: #### B GREEN PLUMBER, BMP, HSTROPN ####[facility] Gihbrnrywm328[address] [place], [place] [address]Dr. Garima Pulliam EGFR-NON AF BURUNDIAN >60 Normal >=60 [facility] Comment on above: Performed By: #### B GREEN PLUMBER, BMP, HSTROPN ####[facility] Wjjzokkbay9[address] [place], [place] [address]Dr. Garima Pulliam Glucose [Mass/Vol] 161 mg/dL Critically high 74-106 [facility] Comment on above: Performed By: #### B GREEN PLUMBER, BMP, HSTROPN ####[facility] Dygbgftlza[address] [place], [place] [address]Dr. Garima Pulliam Potassium [Moles/Vol] 4.1 mmol/L Normal 3.5-5.1 [facility] Comment on above: Performed By: #### B GREEN PLUMBER, BMP, HSTROPN ####[facility] Axsxlmlfjx[address] [place], [place] [address]Dr. Garima Pulliam Sodium [Moles/Vol] 140 mmol/L Normal 136-145 [facility] Comment on above: Performed By: #### B GREEN PLUMBER, BMP, HSTROPN ####[facility] Wdohotxxjc6174 [place] [id number]. Garima Pulliam Urea nitrogen [Mass/Vol] 7.0 mg/dL Normal 7.0-18.0 [facility] Comment on above: Performed By: #### B GREEN PLUMBER, BMP, HSTROPN ####[facility] Fmlfqusylz6189 [place] [id number]. Garima Pulliam Urea nitrogen/Creatinine [Mass ratio] 9.3 mg/mg Normal [facility] Comment on above: Performed By: #### B GREEN PLUMBER, BMP, HSTROPN ####[facility] Deedpgcjps1234 [place] [id number]. Garima Pulliam TROPONIN, HIGH SENSITIVITYon 03-16-2023 HSTROP 9.7 pg/mL Normal 4.0-76.1 [facility] Comment on above: Result Comment: CUT- OFF POINTS HAVE BEEN ESTABLISHED BASED ON THE FOURTH UNIVERSAL DEFINITIONS OF MYOCARDIALINFARCTION. THE UPPER REFERENCE LIMIT (URL) OF TROPONIN, DEFINED THE 99TH PERCENTILE OFcTnI DISTRIBUTION IN A REFERENCE POPULATION, HAS BEEN CONFIRMED THE DECISION THRESHOLDFOR DC DIAGNOSIS. Performed By: #### B GREEN PLUMBER, BMP, HSTROPN ####[facility] Uczhpbewus9650 [place] [address]Dr. Garima Pulliam XR CHEST 1 Von 03-16-2023 XR CHEST 1 V Normal [facility] BNPon 03-06-2023 Natriuretic peptide B (Bld) [Mass/Vol] 111.0 pg/mL Normal <=900.0 [facility] Comment on above: Performed By: #### C MP, BNP, CK ####[facility] Ytlpaxjget9202 [place] [address]Dr. Garima Pulliam CBC AUTO DIFFon 03-06-2023 BASO # 0.0 103/ul Normal 0.0-0.1 [facility] Comment on above: Performed By: #### C BC ####[facility] Zgohicoqxg8277 [place] [address]Dr. Garima Heraclio Basophils/100 WBC (Bld) 0.2 % Normal 0.2-2.0 [facility] Comment on above: Performed By: #### C BC ####[facility] Wyngsiecgv7894 [place] [id number]. Garima Pulliam EO # 0.3 103/ul Normal 0.0-0.7 [facility] Comment on above: Performed By: #### C BC ####[facility] Voxvkiqxoc3603 [place] [id number]. Garima Pulliam Eosinophils/100 WBC (Bld) 3.5 % Normal 0.9-7.0 [facility] Comment on above: Performed By: #### C BC ####[facility] Eviylwttpv44[address] [place], [place] [address]Dr. Garima Pulliam Erythrocyte distribution width (RBC) [Ratio] 13.3 % Normal 11.0-15.0 [facility] Comment on above: Performed By: #### C BC ####[facility] Yspkjinuoo[address] [place], [place] [address]Dr. Garima Pulliam Hematocrit (Bld) [Volume fraction] 43.7 % Normal 42.0-54.0 [facility] Comment on above: Performed By: #### C BC ####[facility] Osphsujvjw[address] [place], [place] [address]Dr. Garima Pulliam Hemoglobin (Bld) [Mass/Vol] 14.7 g/dL Normal 14.0-18.0 [facility] Comment on above: Performed By: #### C BC ####[facility] Usxjcfpuun[address] [place], [place] [address]Dr. Garima Pulliam IG # 0.03 10e3/ul Normal 0.00-0.03 [facility] Comment on above: Performed By: #### C BC ####[facility] Sdeyyfobft[address] [place], [place] [address]Dr. Garima Pulliam IG % 0.4 % Normal 0.0-0.5 [facility] Comment on above: Performed By: #### C BC ####[facility] Edqoqxbvmv035[address] [place], [place] [address]Dr. Garima Pulliam LYMPH # 2.0 103/ul Normal 1.2-3.8 [facility] Comment on above: Performed By: #### C BC ####[facility] Lqfyiitsyx0153 [place] [id number]. Garima Pulliam Lymphocytes/100 WBC (Bld) 23.7 % Normal 20.5-60.0 [facility] Comment on above: Performed By: #### C BC ####[facility] Rjwdadksnv4526 [place] [id number]. Garima Heraclio MANUAL DIFF REQ NO Normal [facility] Comment on above: Performed By: #### C BC ####[facility] Pnlqxgcztk8921 [place] [phone]. Garima Heraclio MCH (RBC) [Entitic mass] 30.1 pg Normal 25.9-34.0 [facility] Comment on above: Performed By: #### C BC ####[facility] Ksvwhttulo[address] [place], [place] [address]Dr. Garima Pulliam MCHC (RBC) [Mass/Vol] 33.6 g/dL Normal 29.9-35.2 [facility] Comment on above: Performed By: #### C BC ####[facility] Jcwuhselbd3017 [place] [id number]. Garima Pulliam MCV (RBC) [Entitic vol] 89.4 fL Normal 80.0-94.0 [facility] Comment on above: Performed By: #### C BC ####[facility] Kcwykioerc6954 [place] [address]Dr. Chapisrenu Heraclio MONO # 0.8 103/ul Normal 0.3-0.8 [facility] Comment on above: Performed By: #### C BC ####[facility] Mplivocivz7429 [place] [id number]. Garima Heraclio Monocytes/100 WBC (Bld) 9.0 % Normal 1.7-12.0 [facility] Comment on above: Performed By: #### C BC ####[facility] Dwghvkmbwj207[address] [place], [place] [address]Dr. Garima Pulliam NEUT # 5.4 103/ul Normal 1.4-6.5 [facility] Comment on above: Performed By: #### C BC ####[facility] Elxyiiiylf3129 [place] [id number]. Garima Pulliam Neutrophils/100 WBC (Bld) 63.2 % Normal 43.0-75.0 [facility] Comment on above: Performed By: #### C BC ####[facility] Dxjneruuss9352 [place] [id number]. Garima Pulliam Platelet mean volume (Bld) [Entitic vol] 9.0 fL Critically low 9.5-13.5 [facility] Comment on above: Performed By: #### C BC ####[facility] Mwfhrtxfld8645 [place] [id number]. Garima Pulliam PLT 218 103/ul Normal 150-450 [facility] Comment on above: Performed By: #### C BC ####[facility] Sznwvlfmjq7545 [place] [address]Dr. Garima Pulliam RBC 4.89 106/ul Normal 4.70-6.10 [facility] Comment on above: Performed By: #### C BC ####[facility] Lxxhivltln2646 [place] [address]Dr. Garima Pulliam WBC 8.5 103/ul Normal 4.0-11.0 [facility] Comment on above: Performed By: #### C BC ####[facility] Stbhkaojuy2494 [place] [address]Dr. Garima Heraclio CPKon 03-06-2023 CK [Catalytic activity/Vol] 191 U/L Normal 39-308 [facility] Comment on above: Performed By: #### C MP, BNP, CK ####[facility] Uztiubiqdc2481 [place] [id number]. Garima Pulliam PROF 14(COMP METB)on 023 Albumin [Mass/Vol] 3.6 g/dL Normal 3.4-5.0 [facility] Comment on above: Performed By: #### C MP, BNP, CK ####[facility] Jnqchnzuaa9995 [place] [address]Dr. Chapisrenu Pulliam Albumin/Globulin [Mass ratio] 1.2 {ratio} Normal [facility] Comment on above: Performed By: #### C MP, BNP, CK ####[facility] [address]ojwoytj[address] [place] [address]Dr. Garima Pulliam ALP [Catalytic activity/Vol] 91 U/L Normal 46-116 [facility] Comment on above: Performed By: #### C MP, BNP, CK ####[facility] Tvwpnslnyj4[address] [place] [address]Dr. Garima Pulliam ALT [Catalytic activity/Vol] 33 U/L Normal 16-63 [facility] Comment on above: Performed By: #### C MP, BNP, CK ####[facility] Jcrcalmmib4[address] [place] [address]Dr. Garima Pulliam Anion gap [Moles/Vol] 10.3 mmol/L Normal [facility] Comment on above: Performed By: #### C MP, BNP, CK ####[facility] Vyqfxlvcdi9[address] [place], [place] [address]Dr. Garima Heraclio AST [Catalytic activity/Vol] 17 U/L Normal 15-37 [facility] Comment on above: Performed By: #### C MP, BNP, CK ####[facility] Qpxynkuouq89[address] [place], [place] [address]Dr. Garima Heraclio Bilirubin [Mass/Vol] 0.4 mg/dL Normal 0.2-1.0 [facility] Comment on above: Performed By: #### C MP, BNP, CK ####[facility] Vacwpmpnfq343[address] [place], [place] [address]Dr. Garima Heraclio Calcium [Mass/Vol] 9.1 mg/dL Normal 8.5-10.1 [facility] Comment on above: Performed By: #### C MP, BNP, CK ####[facility] Tsvgjndswn[address] [place], [place] [address]Dr. Garima Heraclio Chloride [Moles/Vol] 102 mmol/L Normal 98-107 [facility] Comment on above: Performed By: #### C MP, BNP, CK ####[facility] Tgsuggtbsw[address] [place], [place] [address]Dr. Garima Pulliam CO2 [Moles/Vol] 29.7 mmol/L Normal 21.0-32.0 [facility] Comment on above: Performed By: #### C MP, BNP, CK ####[facility] Upamststsm[address] [place] [address]Dr. Garima Pulliam Creatinine [Mass/Vol] 0.79 mg/dL Normal 0.70-1.30 [facility] Comment on above: Performed By: #### C MP, BNP, CK ####[facility] Swxvlohtbm[address] [place] [address]Dr. Garima Pulliam EGFR-AF BURUNDIAN >60 Normal >=60 [facility] Comment on above: Performed By: #### C MP, BNP, CK ####[facility] Yokfilaxuh[address] [place] [address]Dr. Garima Pulliam EGFR-NON AF BURUNDIAN >60 Normal >=60 [facility] Comment on above: Performed By: #### C MP, BNP, CK ####[facility] Fdxkdpnfry1874 [place] [address]Dr. Garima Pulliam Globulin (S) [Mass/Vol] 3.0 g/dL Normal [facility] Comment on above: Performed By: #### C MP, BNP, CK ####[facility] Zgavuhmzbo14[address] [place] [address]Dr. Garima Pulliam Glucose [Mass/Vol] 202 mg/dL Critically high 74-106 [facility] Comment on above: Performed By: #### C MP, BNP, CK ####[facility] Dgvjwonheh7651 [place] [address]Dr. Garima Pulliam Potassium [Moles/Vol] 4.0 mmol/L Normal 3.5-5.1 [facility] Comment on above: Performed By: #### C MP, BNP, CK ####[facility] Wtnthfkfmo4714 [place] [address]Dr. Garima Pulliam Protein [Mass/Vol] 6.6 g/dL Normal 6.4-8.2 [facility] Comment on above: Performed By: #### C MP, BNP, CK ####[facility] Ddtjeywydm9903 [place] [address]Dr. Garima Pulliam Sodium [Moles/Vol] 138 mmol/L Normal 136-145 [facility] Comment on above: Performed By: #### C MP, BNP, CK ####[facility] Lawjfvlscx29[address] [place] [address]Dr. Garima Pulliam Urea nitrogen [Mass/Vol] 10.0 mg/dL Normal 7.0-18.0 [facility] Comment on above: Performed By: #### C MP, BNP, CK ####[facility] Duxuclfxkz8297 [place] [address]Dr. Garima Pulliam Urea nitrogen/Creatinine [Mass ratio] 12.7 mg/mg Normal [facility] Comment on above: Performed By: #### C MP, BNP, CK ####[facility] Kqqbstjkfa45[address] [place], [place] [address]Dr. Garima Pulliam US PANKAJ DOP LEG BILon 023 US PANKAJ DOP LEG BENOIT Normal [facility] CBC AUTO DIFFon 01-13-2023 BASO # 0.0 103/ul Normal 0.0-0.1 [facility] Comment on above: Performed By: #### C BC ####[facility] Mehntymyra[address] [place], [place] [address]Dr. Garima Pulliam Basophils/100 WBC (Bld) 0.0 % Critically low 0.2-2.0 [facility] Comment on above: Performed By: #### C BC ####[facility] Vckswxurka449[address] [place], [place] [address]Dr. Garima Pulliam EO # 0.0 103/ul Normal 0.0-0.7 [facility] Comment on above: Performed By: #### C BC ####[facility] Lyqxytjxsj336[address] [place], [place] [address]Dr. Garima Pulliam Eosinophils/100 WBC (Bld) 0.0 % Critically low 0.9-7.0 [facility] Comment on above: Performed By: #### C BC ####[facility] Dimnlondoi[address] [place], [place] [address]Dr. Garima Pulliam Erythrocyte distribution width (RBC) [Ratio] 13.2 % Normal 11.0-15.0 [facility] Comment on above: Performed By: #### C BC ####[facility] Kedsqydacm7503 [place] [address]Dr. Garima Pulliam Hematocrit (Bld) [Volume fraction] 46.7 % Normal 42.0-54.0 [facility] Comment on above: Performed By: #### C BC ####[facility] Pahhovcdod2034[address] [place], [place] [address]Dr. Garima Pulliam Hemoglobin (Bld) [Mass/Vol] 15.6 g/dL Normal 14.0-18.0 [facility] Comment on above: Performed By: #### C BC ####[facility] Psgtryugdg156254 [address] [place], [place] [address]Dr. Garima Pulliam IG # 0.01 10e3/ul Normal 0.00-0.03 [facility] Comment on above: Performed By: #### C BC ####[facility] Dnaeenhgdm747[address] [place], [place] [address]Dr. Garima Pulliam IG % 0.2 % Normal 0.0-0.5 [facility] Comment on above: Performed By: #### C BC ####[facility] Mzsjpqpwtm73[address] [place], [place] [address]DrAdalberto Garima Pulliam LYMPH # 0.8 103/ul Critically low 1.2-3.8 [facility] Comment on above: Performed By: #### C BC ####[facility] Sxxwrkqtnm207[address] [place], [place] [address]DrAdalberto Garima Pulliam Lymphocytes/100 WBC (Bld) 12.7 % Critically low 20.5-60.0 [facility] Comment on above: Performed By: #### C BC ####[facility] Mywzkbaspw[address] [place], [place] [address]DrAdalberto Garima Heraclio MANUAL DIFF REQ NO Normal [facility] Comment on above: Performed By: #### C BC ####[facility] Gimsrtuxsz52[address] [place], [place] [address]DrAdalberto Nationrenu Heraclio MCH (RBC) [Entitic mass] 30.2 pg Normal 25.9-34.0 [facility] Comment on above: Performed By: #### C BC ####[facility] Ekslfmlcpz8[address] [place] [address]Dr. Garima Heraclio MCHC (RBC) [Mass/Vol] 33.4 g/dL Normal 29.9-35.2 [facility] Comment on above: Performed By: #### C BC ####[facility] Krnheakzbx259[address] [place], [place] [address]Dr. Garima Pulliam MCV (RBC) [Entitic vol] 90.3 fL Normal 80.0-94.0 [facility] Comment on above: Performed By: #### C BC ####[facility] Yfzzyswytl[address] [place], [place] [address]DrAdalberto Pulliam MONO # 0.1 103/ul Critically low 0.3-0.8 [facility] Comment on above: Performed By: #### C BC ####[facility] Upoayirtpm65[address] [place], [place] [address]Dr. Garima Pulliam Monocytes/100 WBC (Bld) 0.9 % Critically low 1.7-12.0 [facility] Comment on above: Performed By: #### C BC ####[facility] Eqjlrzuyrc89[address] [place], [place] [address]DrAdalberto Pulliam NEUT # 5.6 103/ul Normal 1.4-6.5 [facility] Comment on above: Performed By: #### C BC ####[facility] Crgyaogqgt7664[address] [place], [place] [address]Dr. Garima Pulliam Neutrophils/100 WBC (Bld) 86.2 % Critically high 43.0-75.0 [facility] Comment on above: Performed By: #### C BC ####[facility] Durwgavfzn[address] [place], [place] [address]DrAdalberto Pulliam Platelet mean volume (Bld) [Entitic vol] 9.1 fL Critically low 9.5-13.5 [facility] Comment on above: Performed By: #### C BC ####[facility] Lymoynjydb80[address] [place] [id number]. Garima Pulliam PLT 169 103/ul Normal 150-450 [facility] Comment on above: Performed By: #### C BC ####[facility] Vxnxzdmejj3488 [place] [id number]. Garima Pulliam RBC 5.17 106/ul Normal 4.70-6.10 [facility] Comment on above: Performed By: #### C BC ####[facility] Yakhjldpxn1914 [place] [id number]. Garima Pulliam WBC 6.5 103/ul Normal 4.0-11.0 [facility] Comment on above: Performed By: #### C BC ####[facility] Ilizfusqty[address] [place], [place] [address]Dr. Garima Heraclio D-DIMERon 01-13-2023 D-DIMER 0.41 mg/L FEU Normal <=0.59 [facility] Comment on above: Performed By: #### D DIM ####[facility] Fjsfvrpvou13[address] [place] [id number]. Garima Pulliam D-DIMER COMMENTS SEE BELOW Normal [...] hospitalization. Performed By: #### D DIM ####[facility] Sremugbpbz5194 [place] [phone]. Garima Pulliam PROF 14(COMP METB)on 023 Albumin [Mass/Vol] 3.4 g/dL Normal 3.4-5.0 [facility] Comment on above: Performed By: #### C MP ####[facility] Ajjilymxos12[address] [place] [address]Dr. Garima Pulliam Albumin/Globulin [Mass ratio] 1.3 {ratio} Normal [facility] Comment on above: Performed By: #### C MP ####[facility] Bywvgosukl1015 [place] [address]Dr. Garima Heraclio ALP [Catalytic activity/Vol] 83 U/L Normal 46-116 [facility] Comment on above: Performed By: #### C MP ####[facility] Ncdevifrbi5803 [place] [address]Dr. Chapisrenu Heraclio ALT [Catalytic activity/Vol] 25 U/L Normal 16-63 [facility] Comment on above: Performed By: #### C MP ####[facility] Unyafmnufu0644 [place] [address]Dr. Garima Pulliam Anion gap [Moles/Vol] 14.5 mmol/L Normal [facility] Comment on above: Performed By: #### C MP ####[facility] Ecudnvxjct[address] [place], [place] [address]Dr. Garima Pulliam AST [Catalytic activity/Vol] 19 U/L Normal 15-37 [facility] Comment on above: Performed By: #### C MP ####[facility] Srjihcglpa[address] [place], [place] [address]Dr. Garima Pulliam Bilirubin [Mass/Vol] 0.4 mg/dL Normal 0.2-1.0 [facility] Comment on above: Performed By: #### C MP ####[facility] Bdsnxnzngr6574 [place] [address]Dr. Garima Pulliam Calcium [Mass/Vol] 8.7 mg/dL Normal 8.5-10.1 [facility] Comment on above: Performed By: #### C MP ####[facility] Pcxcqipbvl5657 [place] [address]Dr. Garima Pulliam Chloride [Moles/Vol] 104 mmol/L Normal 98-107 [facility] Comment on above: Performed By: #### C MP ####[facility] Onsnfhwoct3553 [place] [address]Dr. Garima Pulliam CO2 [Moles/Vol] 24.5 mmol/L Normal 21.0-32.0 [facility] Comment on above: Performed By: #### C MP ####[facility] Hxmrdqytus3164 [place] [phone]. Garima Pulliam Creatinine [Mass/Vol] 0.70 mg/dL Normal 0.70-1.30 [facility] Comment on above: Performed By: #### C MP ####[facility] Kwyjdhptjc4620 [place] [phone]. Garima Pulliam EGFR-AF BURUNDIAN >60 Normal >=60 [facility] Comment on above: Performed By: #### C MP ####[facility] Xxckwkgksu8987 [place] [phone]. Garima Pulliam EGFR-NON AF BURUNDIAN >60 Normal >=60 [facility] Comment on above: Performed By: #### C MP ####[facility] Jxjskregfe6773 [place] [address]Dr. Garima Pulliam Globulin (S) [Mass/Vol] 2.6 g/dL Normal [facility] Comment on above: Performed By: #### C MP ####[facility] Yzaajyjfpo1499 [place] [phone]. Garima Pulliam Glucose [Mass/Vol] 196 mg/dL Critically high 74-106 [facility] Comment on above: Performed By: #### C MP ####[facility] Mqhxedmjcl5755 [place] [phone]. Garima Pulliam Potassium [Moles/Vol] 4.0 mmol/L Normal 3.5-5.1 [facility] Comment on above: Performed By: #### C MP ####[facility] Vjejxepgin1250 [place] [phone]. Garima Pulliam Protein [Mass/Vol] 6.0 g/dL Critically low 6.4-8.2 Th [facility] Comment on above: Performed By: #### C MP ####[facility] Wrofwinllm3601 [place] [phone]. Garima Pulliam Sodium [Moles/Vol] 139 mmol/L Normal 136-145 [facility] Comment on above: Performed By: #### C MP ####[facility] Nyhpspthuv2916 [place] [address]Dr. Garima Pulliam Urea nitrogen [Mass/Vol] 7.0 mg/dL Normal 7.0-18.0 [facility] Comment on above: Performed By: #### C MP ####[facility] Lgsdlytvmu[address] [place], [place] [address]Dr. Garima Pulliam Urea nitrogen/Creatinine [Mass ratio] 10.0 mg/mg Normal [facility] Comment on above: Performed By: #### C MP ####[facility] Tpywrnqubo687[address] [place], [place] [address]Dr. Garima Pulliam BNPon 01-12-2023 Natriuretic peptide B (Bld) [Mass/Vol] 141.0 pg/mL Normal <=900.0 [facility] Comment on above: Performed By: #### C MP, BNP, HSTROPN ####[facility] Eisojwhdfq917[address] [place], [place] [address]Dr. Garima Pulliam CBC AUTO DIFFon 01-12-2023 BASO # 0.0 103/ul Normal 0.0-0.1 [facility] Comment on above: Performed By: #### C BC ####[facility] Oukozdqyff501[address] [place], [place] [address]Dr. Garima Pulliam Basophils/100 WBC (Bld) 0.2 % Normal 0.2-2.0 [facility] Comment on above: Performed By: #### C BC ####[facility] Qvgnnuyyex890[address] [place], [place] [address]Dr. Garima Pulliam EO # 0.2 103/ul Normal 0.0-0.7 [facility] Comment on above: Performed By: #### C BC ####[facility] Hhftehmbpl95[address] [place], [place] [address]Dr. Garima Pulliam Eosinophils/100 WBC (Bld) 2.7 % Normal 0.9-7.0 [facility] Comment on above: Performed By: #### C BC ####[facility] Xpwgrzqzeh2218[address] [place], [place] [address]Dr. Garima Pulliam Erythrocyte distribution width (RBC) [Ratio] 13.3 % Normal 11.0-15.0 [facility] Comment on above: Performed By: #### C BC ####[facility] Pzeuitovdw9251 [place] [address]Dr. Garima Pulliam Hematocrit (Bld) [Volume fraction] 42.3 % Normal 42.0-54.0 [facility] Comment on above: Performed By: #### C BC ####[facility] Axpthlumej9815[address] [place], [place] [address]Dr. Garima Pulliam Hemoglobin (Bld) [Mass/Vol] 14.3 g/dL Normal 14.0-18.0 [facility] Comment on above: Performed By: #### C BC ####[facility] Zfsleisajy648[address] [place], [place] [address]Dr. Garima Pulliam IG # 0.02 10e3/ul Normal 0.00-0.03 [facility] Comment on above: Performed By: #### C BC ####[facility] Wocllvwmvf09[address] [place], [place] [address]Dr. Garima Pulliam IG % 0.2 % Normal 0.0-0.5 [facility] Comment on above: Performed By: #### C BC ####[facility] Nhbkuclgbx7985[address] [place], [place] [address]Dr. Garima Pulliam LYMPH # 2.6 103/ul Normal 1.2-3.8 [facility] Comment on above: Performed By: #### C BC ####[facility] Kpofwunltz738[address] [place], [place] [address]Dr. Garima Pulliam Lymphocytes/100 WBC (Bld) 29.6 % Normal 20.5-60.0 [facility] Comment on above: Performed By: #### C BC ####[facility] Iiwnjlwbzi27[address] [place], [place] [address]Dr. Garima Pulliam MANUAL DIFF REQ NO Normal [facility] Comment on above: Performed By: #### C BC ####[facility] Mtdlujxzbp9981 [place] [address]Dr. Garima Pulliam MCH (RBC) [Entitic mass] 30.2 pg Normal 25.9-34.0 [facility] Comment on above: Performed By: #### C BC ####[facility] Gsadhxafxx3871 [place] [address]Dr. Garima Pulliam MCHC (RBC) [Mass/Vol] 33.8 g/dL Normal 29.9-35.2 [facility] Comment on above: Performed By: #### C BC ####[facility] Qttrohfqkd9313 [place] [address]Dr. Garima Pulliam MCV (RBC) [Entitic vol] 89.2 fL Normal 80.0-94.0 [facility] Comment on above: Performed By: #### C BC ####[facility] Mkgbalrgnh8916[address] [place], [place] [address]Dr. Garima Pulliam MONO # 0.7 103/ul Normal 0.3-0.8 [facility] Comment on above: Performed By: #### C BC ####[facility] Ucwqogiyii[address] [place], [place] [address]Dr. Garima Pulliam Monocytes/100 WBC (Bld) 8.3 % Normal 1.7-12.0 [facility] Comment on above: Performed By: #### C BC ####[facility] Rewlldxhnx549[address] [place], [place] [address]Dr. Garima Pulliam NEUT # 5.1 103/ul Normal 1.4-6.5 [facility] Comment on above: Performed By: #### C BC ####[facility] Izaqnbqmxf[address] [place], [place] [address]Dr. Garima Pulliam Neutrophils/100 WBC (Bld) 59.0 % Normal 43.0-75.0 [facility] Comment on above: Performed By: #### C BC ####[facility] Xfydiavzqp187[address] [place], [place] [address]DrAdalberto Pulliam Platelet mean volume (Bld) [Entitic vol] 8.7 fL Critically low 9.5-13.5 [facility] Comment on above: Performed By: #### C BC ####[facility] Jtjhwzecbx9[address] [place], [place] [address]Dr. Garima Pulliam PLT 182 103/ul Normal 150-450 [facility] Comment on above: Performed By: #### C BC ####[facility] Iwxvolwdjl7225 [place], [place] [address]Oz. Garima Pulliam RBC 4.74 106/ul Normal 4.70-6.10 [facility] Comment on above: Performed By: #### C BC ####[facility] Cnplhclzmv2162 [place], [place] [address]Sy. Garima Pulliam WBC 8.7 103/ul Normal 4.0-11.0 [facility] Comment on above: Performed By: #### C BC ####[facility] Cwqoqjvtlu3490 [place], [place] [address]Qb. Garima Pulliam Covid-19 PCR (CVDTBH)on 12-25 SARS-CoV-2 (COVID-19) RNA MARIE+probe Ql (Unsp spec) Not detected Normal NOT DETECTED [facility] [...] for this test is supported by the [place] of Health and Human Service's declaration that [...] used). Performed By: #### C VDTBH ####[facility] Fkiyahvpvo3359 [place], [place] [address]Sj. Garima Pulliam PROF 14(COMP METB)on 023 Albumin [Mass/Vol] 3.6 g/dL Normal 3.4-5.0 [facility] Comment on above: Performed By: #### C MP, BNP, HSTROPN ####[facility] Jqmhjdvuns8164 [place] [address]Dr. Garima Pulliam Albumin/Globulin [Mass ratio] 1.5 {ratio} Normal [facility] Comment on above: Performed By: #### C MP, BNP, HSTROPN ####[facility] Pdgrbkbpda4539 [place] [address]Dr. Garima Pulliam ALP [Catalytic activity/Vol] 79 U/L Normal 46-116 [facility] Comment on above: Performed By: #### C MP, BNP, HSTROPN ####[facility] Dyaivxvryf5464 [place] [address]Dr. Garima Pulliam ALT [Catalytic activity/Vol] 27 U/L Normal 16-63 [facility] Comment on above: Performed By: #### C MP, BNP, HSTROPN ####[facility] Whqyfrechx0224 [place] [address]Dr. Garima Pulliam Anion gap [Moles/Vol] 11.7 mmol/L Normal [facility] Comment on above: Performed By: #### C MP, BNP, HSTROPN ####[facility] Eaxsqgiyun39[address] [place], [place] [address]Dr. Garima Pulliam AST [Catalytic activity/Vol] 21 U/L Normal 15-37 [facility] Comment on above: Performed By: #### C MP, BNP, HSTROPN ####[facility] Npsmwiodwf5928 [place] [address]Dr. Garima Pulliam Bilirubin [Mass/Vol] 0.3 mg/dL Normal 0.2-1.0 [facility] Comment on above: Performed By: #### C MP, BNP, HSTROPN ####[facility] Vkecdnuzxq675[address] [place], [place] [address]Dr. Garima Pulliam Calcium [Mass/Vol] 8.9 mg/dL Normal 8.5-10.1 [facility] Comment on above: Performed By: #### C MP, BNP, HSTROPN ####[facility] [address]peq[address] [place], [place] [address]Dr. Garima Pulliam Chloride [Moles/Vol] 107 mmol/L Normal 98-107 [facility] Comment on above: Performed By: #### C MP, BNP, HSTROPN ####[facility] Qvomlnqgoy[address] [place], [place] [address]Dr. Garima Pulliam CO2 [Moles/Vol] 26.0 mmol/L Normal 21.0-32.0 [facility] Comment on above: Performed By: #### C MP, BNP, HSTROPN ####[facility] Nuiqmwijsj9[address] [place], [place] [address]Dr. Garima Pulliam Creatinine [Mass/Vol] 0.65 mg/dL Critically low 0.70-1.30 [facility] Comment on above: Performed By: #### C MP, BNP, HSTROPN ####[facility] Nokteydall[address] [place], [place] [address]Dr. Garima Pulliam EGFR-AF BURUNDIAN >60 Normal >=60 [facility] Comment on above: Performed By: #### C MP, BNP, HSTROPN ####[facility] Qfhjhhqpla032[address] [place], [place] [address]Dr. Garima Pulliam EGFR-NON AF [place]DI[place] >60 Normal >=60 [facility] Comment on above: Performed By: #### C MP, BNP, HSTROPN ####[facility] [facility] [address] [place], [place] [address]Dr. Garima Pulliam Globulin (S) [Mass/Vol] 2.4 g/dL Normal [facility] Comment on above: Performed By: #### C MP, BNP, HSTROPN ####[facility] Ikwojistsu[address] [place], [place] [address]Dr. Garima Pulliam Glucose [Mass/Vol] 85 mg/dL Normal 74-106 [facility] Comment on above: Performed By: #### C MP, BNP, HSTROPN ####[facility] Atmpmllede[address] [place], [place] [address]Dr. Garima Pulliam Potassium [Moles/Vol] 3.7 mmol/L Normal 3.5-5.1 [facility] Comment on above: Performed By: #### C MP, BNP, HSTROPN ####[facility] [address] [place] [address]Dr. Garima Pulliam Protein [Mass/Vol] 6.0 g/dL Critically low 6.4-8.2 Th e [facility] Comment on above: Performed By: #### C MP, BNP, HSTROPN ####[facility] [address] [place] [address]Dr. Garima Pulliam Sodium [Moles/Vol] 141 mmol/L Normal 136-145 [facility] Comment on above: Performed By: #### C MP, BNP, HSTROPN ####[facility] Gbnncixvaf[address] [place], [place] [address]Dr. Garima Pulliam Urea nitrogen [Mass/Vol] 5.0 mg/dL Critically low 7.0-18.0 [facility] Comment on above: Performed By: #### C MP, BNP, HSTROPN ####[facility] Rxspbzkirn[address] [place], [place] [address]Dr. Gairma Pulliam Urea nitrogen/Creatinine [Mass ratio] 7.7 mg/mg Normal [facility] Comment on above: Performed By: #### C MP, BNP, HSTROPN ####[facility] Oloqwtimed[address] [place], [place] [address]Dr. Garima Pulliam PROTIMEon 01-12-2023 INR Coag (PPP) [Relative time] 1.16 {INR} Normal [facility] Comment on above: Performed By: #### P TT, PT ####[facility] Cqqjpu[address] [place], [place] [address]Dr. Garima Pulliam INR GUIDELINES SEE BELOW Normal [facility] Comment on above: Result Comment: WESLEY RED INR: 2.0 - 3.0 CONDITIONS NOT LISTED BELOW 2.5 - 3.5 FOR PROSTHETIC HEART VALVE REPLACEMENT 2.5 - 3.5 RECURRENT THROMBOSIS Performed By: #### P TT, PT ####[facility] I[address]kylwazf[address] [place], [place] [address]Dr. Garima Pulliam PT Coag (PPP) [Time] 12.2 s Critically high 9.0-11.6 [facility] Comment on above: Performed By: #### P TT, PT ####[facility] [address] [place] [address]Dr. Garima Pulliam PTTon 01-12-2023 aPTT Coag (Bld) [Time] 29.1 s Normal 22.3-36.2 [facility] Comment on above: Performed By: #### P TT, PT ####[facility] Vmkttqtcbb[address] [place] [address]Dr. Garima Pulliam TROPONIN, HIGH SENSITIVITYon 01-12-2023 HSTROP 10.3 pg/mL Normal 4.0-76.1 [facility] Comment on above: Result Comment: CUT- OFF POINTS HAVE BEEN ESTABLISHED BASED ON THE FOURTH UNIVERSAL DEFINITIONS OF MYOCARDIALINFARCTION. THE UPPER REFERENCE LIMIT (URL) OF TROPONIN, DEFINED THE 99TH PERCENTILE OFcTnI DISTRIBUTION IN A REFERENCE POPULATION, HAS BEEN CONFIRMED THE DECISION THRESHOLDFOR DC DIAGNOSIS. Performed By: #### H STROPN ####[facility] Zdlspdbgkg[address] [place], [place] [address]Dr. Garima Pulliam HSTROP 9.2 pg/mL Normal 4.0-76.1 [facility] Comment on above: Result Comment: CUT- OFF POINTS HAVE BEEN ESTABLISHED BASED ON THE FOURTH UNIVERSAL DEFINITIONS OF MYOCARDIALINFARCTION. THE UPPER REFERENCE LIMIT (URL) OF TROPONIN, DEFINED THE 99TH PERCENTILE OFcTnI DISTRIBUTION IN A REFERENCE POPULATION, HAS BEEN CONFIRMED THE DECISION THRESHOLDFOR DC DIAGNOSIS. Performed By: #### C MP, BNP, HSTROPN ####[facility] [address]inj[address] [place] [address]Dr. Garima Pulliam XR CHEST 1 Von 01-12-2023 XR CHEST 1 V Normal [facility] XR CHEST 1 Von 01-01-2023 XR CHEST 1 V Normal [facility] CARDIAC NASH 3-6on 3 CK [Catalytic activity/Vol] 196 U/L Normal 39-308 [facility] Comment on above: Performed By: #### C MREP ####[facility] Cajurokfyc[address] [place], [place] [address]Dr. Garima Pulliam CK.MB [Mass/Vol] 7.41 ng/mL Critically high <=3.60 [facility] Comment on above: Performed By: #### C MREP ####[facility] Gbz[address]ifqix[address] [place] [address]Dr. Garima Pulliam HSTROP 10.3 pg/mL Normal 4.0-76.1 [facility] Comment on above: Result Comment: CUT- OFF POINTS HAVE BEEN ESTABLISHED BASED ON THE FOURTH UNIVERSAL DEFINITIONS OF MYOCARDIALINFARCTION. THE UPPER REFERENCE LIMIT (URL) OF TROPONIN, DEFINED THE 99TH PERCENTILE OFcTnI DISTRIBUTION IN A REFERENCE POPULATION, HAS BEEN CONFIRMED THE DECISION THRESHOLDFOR DC DIAGNOSIS. Performed By: #### C MREP ####[facility] [address]izw[address] [place] [address]Dr. Garima Pulliam XR CHEST 1 Von 12-26-2022 XR CHEST 1 V Normal [facility] BNPon 12-25-2022 Natriuretic peptide B (Bld) [Mass/Vol] 98.0 pg/mL Normal <=900.0 [facility] Comment on above: Performed By: #### B GREEN PLUMBER, BMP, CMADM ####[facility] [address]urs[address]xfe[address] [place] [address]Dr. Garima Pulliam CARDIAC NASH ADMITon 023 CK [Catalytic activity/Vol] 208 U/L Normal 39-308 [facility] Comment on above: Performed By: #### B GREEN PLUMBER, BMP, CMADM ####[facility] Aidvmbwdzk[address] [place], [place] [address]Dr. Garima Pulliam CK.MB [Mass/Vol] 7.63 ng/mL Critically high <=3.60 [facility] Comment on above: Performed By: #### B GREEN PLUMBER, BMP, CMADM ####[facility] Wovojehzkn[address] [place], [place] [address]Dr. Garima Pulliam HSTROP 8.8 pg/mL Normal 4.0-76.1 [facility] Comment on above: Result Comment: CUT- OFF POINTS HAVE BEEN ESTABLISHED BASED ON THE FOURTH UNIVERSAL DEFINITIONS OF MYOCARDIALINFARCTION. THE UPPER REFERENCE LIMIT (URL) OF TROPONIN, DEFINED THE 99TH PERCENTILE OFcTnI DISTRIBUTION IN A REFERENCE POPULATION, HAS BEEN CONFIRMED THE DECISION THRESHOLDFOR DC DIAGNOSIS. Performed By: #### B MANOLO, MARVIN, NANCY ####[facility] Az[address]smxfdw[address] [place] [address]Dr. Garima Pulliam DORIS 83 ng/mL Normal 16-96 [facility] Comment on above: Performed By: #### B GREEN PLUMBERMARVIN, NANCY ####[facility] Z[address]jdbhcng[address] [place] [address]Dr. Garima Pulliam CBC AUTO DIFFon 12-25-2022 BASO # 0.0 103/ul Normal 0.0-0.1 [facility] Comment on above: Performed By: #### C BC ####[facility] Ezhmztujsp[address] [place], [place] [address]Dr. Garima Pulliam Basophils/100 WBC (Bld) 0.0 % Critically low 0.2-2.0 [facility] Comment on above: Performed By: #### C BC ####[facility] Efdeeurhnu[address] [place], [place] [address]Dr. Garima Pulliam EO # 0.0 103/ul Normal 0.0-0.7 [facility] Comment on above: Performed By: #### C BC ####[facility] Lsqidqmizk[address] [place], [place] [address]Dr. Garima Pulliam Eosinophils/100 WBC (Bld) 0.7 % Critically low 0.9-7.0 [facility] Comment on above: Performed By: #### C BC ####[facility] Rgwmjazrja[address] [place], [place] [address]Dr. Garima Pulliam Erythrocyte distribution width (RBC) [Ratio] 13.4 % Normal 11.0-15.0 [facility] Comment on above: Performed By: #### C BC ####[facility] R[address]clg[address]cyb[address] [place], [place] [address]Dr. Garima Pulliam Hematocrit (Bld) [Volume fraction] 42.9 % Normal 42.0-54.0 [facility] Comment on above: Performed By: #### C BC ####[facility] Mbvcam[address]zzx[address] [place] [id number]. Garima Pulliam Hemoglobin (Bld) [Mass/Vol] 14.4 g/dL Normal 14.0-18.0 [facility] Comment on above: Performed By: #### C BC ####[facility] Qeqxjcrzhr[address] [place] [id number]. Garima Pulliam IG # 0.00 10e3/ul Normal 0.00-0.03 [facility] Comment on above: Performed By: #### C BC ####[facility] Ltatrvxtpt[address] [place] [id number]. Garima Pulliam IG % 0.0 % Normal 0.0-0.5 [facility] Comment on above: Performed By: #### C BC ####[facility] G[address]ypwytgi[address] [place] [address]Dr. Garima Pulliam LYMPH # 2.4 103/ul Normal 1.2-3.8 [facility] Comment on above: Performed By: #### C BC ####[facility] Voeftxfoxh[address] [place] [address]Dr. Garima Pulliam Lymphocytes/100 WBC (Bld) 29.2 % Normal 20.5-60.0 [facility] Comment on above: Performed By: #### C BC ####[facility] G[address]ycbfgj[address] [place] [address]Dr. Garima Pulliam MANUAL DIFF REQ NO Normal [facility] Comment on above: Performed By: #### C BC ####[facility] Vnsysntlix[address] [place] [id number]. Garima Pulliam MCH (RBC) [Entitic mass] 30.7 pg Normal 25.9-34.0 [facility] Comment on above: Performed By: #### C BC ####[facility] Sngooaagen2642 [place] [id number]. Garima Pulliam MCHC (RBC) [Mass/Vol] 33.6 g/dL Normal 29.9-35.2 [facility] Comment on above: Performed By: #### C BC ####[facility] Jbdmilckjd[address] [place], [place] [address]DrAdalberto Garima Heraclio MCV (RBC) [Entitic vol] 91.5 fL Normal 80.0-94.0 [facility] Comment on above: Performed By: #### C BC ####[facility] Azjvx[address]xjz[address] [place] [address]Dr. Garima Pulliam MONO # 0.0 103/ul Critically low 0.3-0.8 [facility] Comment on above: Performed By: #### C BC ####[facility] Vdpmvpaazd12[address] [place] [address]Dr. Garima Heraclio Monocytes/100 WBC (Bld) 8.0 % Normal 1.7-12.0 [facility] Comment on above: Performed By: #### C BC ####[facility] Zncjwamfkv[address] [place] [address]Dr. Garima Pulliam NEUT # 5.1 103/ul Normal 1.4-6.5 [facility] Comment on above: Performed By: #### C BC ####[facility] Qjlnbltyid[address] [place], [place] [address]Dr. Garima Heraclio Neutrophils/100 WBC (Bld) 62.8 % Normal 43.0-75.0 [facility] Comment on above: Performed By: #### C BC ####[facility] Duujoggpry[address] [place] [address]Dr. Garima Heraclio Platelet mean volume (Bld) [Entitic vol] 8.6 fL Critically low 9.5-13.5 [facility] Comment on above: Performed By: #### C BC ####[facility] Ql[address]cuepmh[address] [place] [address]Dr. Garima Heraclio PLT 200 103/ul Normal 150-450 [facility] Comment on above: Performed By: #### C BC ####[facility] Iqqpiykncw5753 [place] [address]DrAdalberto Garima Heraclio RBC 4.69 106/ul Critically low 4.70-6.10 [facility] Comment on above: Performed By: #### C BC ####[facility] Ulqqrhpawf[address] [place], [place] [address]Dr. Garima Pulliam WBC 8.2 103/ul Normal 4.0-11.0 [facility] Comment on above: Performed By: #### C BC ####[facility] Vnwtunxiof[address] [place] [address]Dr. Garima Pulliam [facility]on SARS-CoV-2 (COVID-19) RNA MARIE+probe Ql (Unsp spec) Not detected Normal NOT DETECTED [facility] [...] for this test is supported by the Rug Cleaner of Health and Human Service's declaration that [...] used). Performed By: #### C VDTBH ####[facility] Al[address]qjbnay[address] [place] [address]Dr. Garima Pulliam INFLUENZA A AND B AGon 12-25 INFLUANEGH SEE BELOW Normal [facility] Comment on above: Result Comment: Nega tive for Flu A protein angiten. Infection due to Flu A cannot be ruled out. Flu A angiten in the sample may be below the detection limit of the test. Performed By: #### I NFLUAB ####[facility] Psosvzccmt[address] [place] [address]Dr. Garima Pulliam INFLUBNEGH SEE BELOW Normal [facility] Comment on above: Result Comment: Nega tive for Flu B protein antigen. Infection due to Flu B cannot be ruled out. Flu B antigen in the sample may be below the detection limit of the test. Performed By: #### I NFLUAB ####[facility] [address]ir[address]pz[address] [place], [place] [address]Dr. Chapisrenu Heraclio INFLUENZA A AG Negative Normal NEGATIVE SEE COMMENT [facility] Comment on above: Performed By: #### I NFLUAB ####[facility] Wgcgpqhfai[address] [place], [place] [address]Dr. Garima Pulliam INFLUENZA B AG Negative Normal NEGATIVE SEE COMMENT [facility] Comment on above: Performed By: #### I NFLUAB ####[facility] Sksdjfqddo[address] [place], [place] [address]Dr. Garima Pulliam PROF CHEM 8 (BAS METB)on Anion gap [Moles/Vol] 11.1 mmol/L Normal [facility] Comment on above: Performed By: #### B GREEN PLUMBER, BMP, CMADM ####[facility] Iiafiebrqr[address] [place], [place] [address]Dr. Garima Pulliam Calcium [Mass/Vol] 8.5 mg/dL Normal 8.5-10.1 [facility] Comment on above: Performed By: #### B GREEN PLUMBER, BMP, CMADM ####[facility] Bxpmziatsd[address] [place], [place] [address]Dr. Chapisrenu Pulliam Chloride [Moles/Vol] 106 mmol/L Normal 98-107 [facility] Comment on above: Performed By: #### B GREEN PLUMBER, BMP, CMADM ####[facility] Uned[address] [place], [place] [address]Dr. Garima Pulliam CO2 [Moles/Vol] 27.4 mmol/L Normal 21.0-32.0 [facility] Comment on above: Performed By: #### B GREEN PLUMBER, BMP, CMADM ####[facility] [address]ks[address] [place], [place] [address]Dr. Garima Pulliam Creatinine [Mass/Vol] 0.65 mg/dL Critically low 0.70-1.30 [facility] Comment on above: Performed By: #### B GREEN PLUMBER, BMP, CMADM ####[facility] Bu[address]fwwfgm[address] [place], [place] [address]Dr. Garima Pulliam EGFR-AF BURUNDIAN >60 Normal >=60 [facility] Comment on above: Performed By: #### B GREEN PLUMBERMARVIN, NANCY ####[facility] [address]izsjjzjoj[address] [place] [address]Dr. Garima Pulliam EGFR-NON AF BURUNDIAN >60 Normal >=60 [facility] Comment on above: Performed By: #### B GREEN PLUMBERMARVIN, CMAANA ROSA ####[facility] Snsodmwdok[address] [place] [address]Dr. Garima Pulliam Glucose [Mass/Vol] 140 mg/dL Critically high 74-106 T [facility] Comment on above: Performed By: #### B MARVIN FRENCH CMAANA ROSA ####[facility] Meohelnkta[address] [place] [address]Dr. Garima Pulliam Potassium [Moles/Vol] 3.5 mmol/L Normal 3.5-5.1 [facility] Comment on above: Performed By: #### B GREEN PLUMBERMARVIN CMAANA ROSA ####[facility] Ujcvqzbyvn040[address] [place] [address]Dr. Garima Pulliam Sodium [Moles/Vol] 141 mmol/L Normal 136-145 [facility] Comment on above: Performed By: #### B GREEN PLUMBERMARVIN CMAANA ROSA ####[facility] Krjdxqxnvn5[address] [place] [address]Dr. Garima Pulliam Urea nitrogen [Mass/Vol] 8.0 mg/dL Normal 7.0-18.0 [facility] Comment on above: Performed By: #### B GREEN PLUMBERMARVIN, CMADM ####[facility] Tcklvzmtxy[address] [place] [address]Dr. Garima Pulliam Urea nitrogen/Creatinine [Mass ratio] 12.3 mg/mg Normal [facility] Comment on above: Performed By: #### B GREEN PLUMBERMARVIN CMADM ####[facility] Blkyozhpjz75[address] [place] [address]Dr. Garima Pulliam CARDIAC NASH ADMITon 023 CK [Catalytic activity/Vol] 165 U/L Normal 39-308 [facility] Comment on above: Performed By: #### B MP, NANCY ####[facility] Nmyggstmsz[address] [place] [id number]. Garima Pulliam CK.MB [Mass/Vol] 6.48 ng/mL Critically high <=3.60 [facility] Comment on above: Performed By: #### B DAVID, ERVINDM ####[facility] Zwqhsivimw99[address] [place] [id number]. Chapisrenu Pulliam HSTROP 11.7 pg/mL Normal 4.0-76.1 [facility] Comment on above: Result Comment: CUT- OFF POINTS HAVE BEEN ESTABLISHED BASED ON THE FOURTH UNIVERSAL DEFINITIONS OF MYOCARDIALINFARCTION. THE UPPER REFERENCE LIMIT (URL) OF TROPONIN, DEFINED THE 99TH PERCENTILE OFcTnI DISTRIBUTION IN A REFERENCE POPULATION, HAS BEEN CONFIRMED THE DECISION THRESHOLDFOR DC DIAGNOSIS. Performed By: #### B NANCY HERNANDEZ ####[facility] Ovxttlsqwl[address] [place] [id number]. Garima Pulliam DORIS 83 ng/mL Normal 16-96 [facility] Comment on above: Performed By: #### B NANCY HERNANDEZ ####[facility] Qkzifewldb24[address] [place] [id number]. Garima Pulliam CBC AUTO DIFFon 12-10-2022 BASO # 0.0 103/ul Normal 0.0-0.1 [facility] Comment on above: Performed By: #### C BC ####[facility] Hekhilrlmx[address] [place] [address]Dr. Garima Pulliam Basophils/100 WBC (Bld) 0.3 % Normal 0.2-2.0 [facility] Comment on above: Performed By: #### C BC ####[facility] Wssjkfomzg1840 [place] [id number]. Garima Pulliam EO # 0.1 103/ul Normal 0.0-0.7 [facility] Comment on above: Performed By: #### C BC ####[facility] Jxqbsrxdig6132 [place] [id number]. Garima Pulliam Eosinophils/100 WBC (Bld) 0.4 % Critically low 0.9-7.0 [facility] Comment on above: Performed By: #### C BC ####[facility] Trpavkqjvy8474 [place] [address]Dr. Garima Pulliam Erythrocyte distribution width (RBC) [Ratio] 13.2 % Normal 11.0-15.0 [facility] Comment on above: Performed By: #### C BC ####[facility] Jhkbdvcqhg13[address] [place] [address]Dr. Garima Pulliam Hematocrit (Bld) [Volume fraction] 42.4 % Normal 42.0-54.0 [facility] Comment on above: Performed By: #### C BC ####[facility] J[address]hdpgfcmk[address] [place], [place] [address]Dr. Garima Pulliam Hemoglobin (Bld) [Mass/Vol] 14.4 g/dL Normal 14.0-18.0 [facility] Comment on above: Performed By: #### C BC ####[facility] Dxcjyqhgar[address] [place], [place] [address]DrAdalberto Garima Pulliam IG # 0.05 10e3/ul Critically high 0.00-0.03 [facility] Comment on above: Performed By: #### C BC ####[facility] Yz[address]cqqb[address] [place], [place] [address]DrAdalberto Garima Pulliam IG % 0.4 % Normal 0.0-0.5 [facility] Comment on above: Performed By: #### C BC ####[facility] Prkuxakzyk[address] [place], [place] [address]DrAdalberto Garima Pulliam LYMPH # 0.8 103/ul Critically low 1.2-3.8 [facility] Comment on above: Performed By: #### C BC ####[facility] Opwwpuwhql[address] [place], [place] [address]DrAdalberto Garima Heraclio Lymphocytes/100 WBC (Bld) 6.5 % Critically low 20.5-60.0 [facility] Comment on above: Performed By: #### C BC ####[facility] Hjbctxyrkz[address] [place], [place] [address]DrAdalberto Garima Heraclio MANUAL DIFF REQ NO Normal [facility] Comment on above: Performed By: #### C BC ####[facility] Yyjvqyuava8004 [place] [id number]. Garima Heraclio MCH (RBC) [Entitic mass] 30.5 pg Normal 25.9-34.0 [facility] Comment on above: Performed By: #### C BC ####[facility] Mjudfmwmya55[address] [place] [address]Dr. Garima Pulliam MCHC (RBC) [Mass/Vol] 34.0 g/dL Normal 29.9-35.2 [facility] Comment on above: Performed By: #### C BC ####[facility] Uailknrnau[address] [place] [address]Dr. Garima Pulliam MCV (RBC) [Entitic vol] 89.8 fL Normal 80.0-94.0 [facility] Comment on above: Performed By: #### C BC ####[facility] Bpcmuironp[address] [place], [place] [address]DrAdalberto Pulliam MONO # 0.2 103/ul Critically low 0.3-0.8 [facility] Comment on above: Performed By: #### C BC ####[facility] Xheuttceev[address] [place], [place] [address]Dr. Garima Pulliam Monocytes/100 WBC (Bld) 2.0 % Normal 1.7-12.0 [facility] Comment on above: Performed By: #### C BC ####[facility] Zqqcutudmn[address] [place], [place] [address]DrAdalberto Pulliam NEUT # 10.5 103/ul Critically high 1.4-6.5 [facility] Comment on above: Performed By: #### C BC ####[facility] [address] [place], [place] [address]DrAdalberto Pulliam Neutrophils/100 WBC (Bld) 90.4 % Critically high 43.0-75.0 [facility] Comment on above: Performed By: #### C BC ####[facility] Rxzjzzfqyz[address] [place], [place] [address]DrAdalberto Pulliam Platelet mean volume (Bld) [Entitic vol] 9.4 fL Critically low 9.5-13.5 [facility] Comment on above: Performed By: #### C BC ####[facility] Psntdtnsuf59[address] [place] [address]Dr. Garima Pulliam PLT 198 103/ul Normal 150-450 [facility] Comment on above: Performed By: #### C BC ####[facility] Awcfsqgaiv1646 [place] [address]Dr. Garima Pulliam RBC 4.72 106/ul Normal 4.70-6.10 [facility] Comment on above: Performed By: #### C BC ####[facility] Ayzivriuub[address] [place] [address]Dr. Garima Pulliam WBC 11.6 103/ul Critically high 4.0-11.0 [facility] Comment on above: Performed By: #### C BC ####[facility] Dkrnohwinr9157 [place] [address]Dr. Garima Pulliam PROF CHEM 8 (BAS METB)on Anion gap [Moles/Vol] 11.3 mmol/L Normal [facility] Comment on above: Performed By: #### B NANCY HERNANDEZ ####[facility] Iyhshoazgc[address] [place] [address]Dr. Garima Pulliam Calcium [Mass/Vol] 8.9 mg/dL Normal 8.5-10.1 [facility] Comment on above: Performed By: #### B NANCY HERNANDEZ ####[facility] [address]sv[address] [place] [id number]. Garima Pulliam Chloride [Moles/Vol] 103 mmol/L Normal 98-107 [facility] Comment on above: Performed By: #### B NANCY HERNANDEZ ####[facility] [address] [place] [address]Dr. Garima Pulliam CO2 [Moles/Vol] 28.2 mmol/L Normal 21.0-32.0 [facility] Comment on above: Performed By: #### B NANCY HERNANDEZ ####[facility] [address]aumrkqxaw[address] [place] [address]DrAdalberto Pulliam Creatinine [Mass/Vol] 0.60 mg/dL Critically low 0.70-1.30 [facility] Comment on above: Performed By: #### NANCY Larkin MP ####[facility] Fdgxprrgfb[address] [place] [address]Dr. Garima Pulliam EGFR-AF BURUNDIAN >60 Normal >=60 [facility] Comment on above: Performed By: #### NANCY Larkin MP ####[facility] Ftluayqcuo[address] [place] [address]Dr. Garima Pulliam EGFR-NON AF BURUNDIAN >60 Normal >=60 [facility] Comment on above: Performed By: #### NANCY Larkin MP ####[facility] Jpkoaswzuu[address] [place] [address]Dr. Garima Pulliam Glucose [Mass/Vol] 166 mg/dL Critically high 74-106 T [facility] Comment on above: Performed By: #### NANCY Larkin MP ####[facility] Iyrsluewmr[address] [place] [address]Dr. Garima Pulliam Potassium [Moles/Vol] 3.5 mmol/L Normal 3.5-5.1 [facility] Comment on above: Performed By: #### NANCY Larkin MP ####[facility] Bsmzzozusc[address] [place], [place] [address]Dr. Garima Pulliam Sodium [Moles/Vol] 139 mmol/L Normal 136-145 [facility] Comment on above: Performed By: #### NANCY Larkin MP ####[facility] Leiajsabsd[address] [place] [address]Dr. Garima Pulliam Urea nitrogen [Mass/Vol] 9.0 mg/dL Normal 7.0-18.0 [facility] Comment on above: Performed By: #### NANCY Larkin MP ####[facility] Elqjnbfgds[address] [place], [place] [address]Dr. Garima Pulliam Urea nitrogen/Creatinine [Mass ratio] 15.0 mg/mg Normal [facility] Comment on above: Performed By: #### NANCY Larkin MP ####[facility] Rcmtlolbmp[address] [place], [place] [id number]. Garima Pulliam XR CHEST 1 Von 12-10-2022 XR CHEST 1 V Normal [facility] BNPon 11-27-2022 Natriuretic peptide B (Bld) [Mass/Vol] 95.0 pg/mL Normal <=900.0 [facility] Comment on above: Performed By: #### C MP, HSTROPN, BNP ####[facility] Nqrketgxmm[address] [place] [address]Dr. Garima Pulliam CBC AUTO DIFFon 11-27-2022 BASO # 0.0 103/ul Normal 0.0-0.1 [facility] Comment on above: Performed By: #### C BC ####[facility] Nrxshtkxkk[address] [place], [place] [address]DrAdalberto Pulliam Basophils/100 WBC (Bld) 0.2 % Normal 0.2-2.0 [facility] Comment on above: Performed By: #### C BC ####[facility] Pqdvtdoedq[address] [place], [place] [address]DrAdalberto Pulliam EO # 0.2 103/ul Normal 0.0-0.7 [facility] Comment on above: Performed By: #### C BC ####[facility] Doddyvhslk[address] [place], [place] [address]DrAdalberto Pulliam Eosinophils/100 WBC (Bld) 2.0 % Normal 0.9-7.0 [facility] Comment on above: Performed By: #### C BC ####[facility] Nedwqvllly406[address] [place], [place] [address]DrAdalberto Pulliam Erythrocyte distribution width (RBC) [Ratio] 13.2 % Normal 11.0-15.0 [facility] Comment on above: Performed By: #### C BC ####[facility] Zkhirmsaws[address] [place], [place] [address]DrAdalberto Pulliam Hematocrit (Bld) [Volume fraction] 42.4 % Normal 42.0-54.0 [facility] Comment on above: Performed By: #### C BC ####[facility] Pmqzcjrqet[address] [place], [place] [address]DrAdalberto Pulliam Hemoglobin (Bld) [Mass/Vol] 14.4 g/dL Normal 14.0-18.0 [facility] Comment on above: Performed By: #### C BC ####[facility] Cecsxpihgy[address] [place] [address]DrAdalberto Pulliam IG # 0.04 10e3/ul Critically high 0.00-0.03 [facility] Comment on above: Performed By: #### C BC ####[facility] Uyknlvmgrz16[address] [place] [address]DrAdalberto Pulliam IG % 0.4 % Normal 0.0-0.5 [facility] Comment on above: Performed By: #### C BC ####[facility] Kugxymypzt[address] [place], [place] [address]DrAdalberto Pulliam LYMPH # 2.2 103/ul Normal 1.2-3.8 [facility] Comment on above: Performed By: #### C BC ####[facility] Aivrzjwljc08[address] [place], [place] [address]DrAdalberto Pulliam Lymphocytes/100 WBC (Bld) 21.5 % Normal 20.5-60.0 [facility] Comment on above: Performed By: #### C BC ####[facility] Wmztwjszjj368[address] [place], [place] [address]DrAdalberto Pulliam MANUAL DIFF REQ NO Normal [facility] Comment on above: Performed By: #### C BC ####[facility] Fftdvjtjnk8[address] [place], [place] [address]DrAdalberto Pulliam MCH (RBC) [Entitic mass] 30.4 pg Normal 25.9-34.0 [facility] Comment on above: Performed By: #### C BC ####[facility] Cxaqxvmudj4525[address] [place], [place] [address]DrAdalberto Pulliam MCHC (RBC) [Mass/Vol] 34.0 g/dL Normal 29.9-35.2 [facility] Comment on above: Performed By: #### C BC ####[facility] Cwiprcnzfi9[address] [place], [place] [address]DrAdalberto Pulliam MCV (RBC) [Entitic vol] 89.6 fL Normal 80.0-94.0 [facility] Comment on above: Performed By: #### C BC ####[facility] Iszhpcsztj590[address] [place], [place] [address]Dr. Garima Pulliam MONO # 0.8 103/ul Normal 0.3-0.8 [facility] Comment on above: Performed By: #### C BC ####[facility] Uzbgieeywo80[address] [place], [place] [address]Dr. Garima Pulliam Monocytes/100 WBC (Bld) 7.7 % Normal 1.7-12.0 [facility] Comment on above: Performed By: #### C BC ####[facility] Ujoxbuuqrz248[address] [place], [place] [address]Dr. Garima Pulliam NEUT # 7.0 103/ul Critically high 1.4-6.5 [facility] Comment on above: Performed By: #### C BC ####[facility] Gkrpocxqwq6740[address] [place], [place] [address]Dr. Garima Heraclio Neutrophils/100 WBC (Bld) 68.2 % Normal 43.0-75.0 [facility] Comment on above: Performed By: #### C BC ####[facility] Kfncgqewlh[address] [place], [place] [address]Dr. Garima Pulliam Platelet mean volume (Bld) [Entitic vol] 8.9 fL Critically low 9.5-13.5 [facility] Comment on above: Performed By: #### C BC ####[facility] Txcicksfza[address] [place], [place] [address]Dr. Garima Heraclio PLT 222 103/ul Normal 150-450 [facility] Comment on above: Performed By: #### C BC ####[facility] Liublszevt325[address] [place], [place] [address]Dr. Garima Heraclio RBC 4.73 106/ul Normal 4.70-6.10 [facility] Comment on above: Performed By: #### C BC ####[facility] Mvruqpdkmf216[address] [place], [place] [address]Dr. Garima Pulliam WBC 10.3 103/ul Normal 4.0-11.0 [facility] Comment on above: Performed By: #### C BC ####[facility] Rzzptmmgjb6[address] [place] [address]Dr. Garima Pulliam PROF 14(COMP METB)on 023 Albumin [Mass/Vol] 3.7 g/dL Normal 3.4-5.0 [facility] Comment on above: Performed By: #### C MP, HSTROPN, BNP ####[facility] Crqyriamfc58[address] [place], [place] [address]Dr. Garima Pulliam Albumin/Globulin [Mass ratio] 1.5 {ratio} Normal [facility] Comment on above: Performed By: #### C MP, HSTROPN, BNP ####[facility] Dkfrpuoogh[address] [place], [place] [address]Dr. Garima Pulliam ALP [Catalytic activity/Vol] 79 U/L Normal 46-116 [facility] Comment on above: Performed By: #### C MP, HSTROPN, BNP ####[facility] Ajjivlddra6564[address] [place], [place] [address]Dr. Garima Pulliam ALT [Catalytic activity/Vol] 32 U/L Normal 16-63 [facility] Comment on above: Performed By: #### C MP, HSTROPN, BNP ####[facility] Qbzpbgiuje122[address] [place], [place] [address]Dr. Garima Pulliam Anion gap [Moles/Vol] 9.5 mmol/L Normal [facility] Comment on above: Performed By: #### C MP, HSTROPN, BNP ####[facility] Dzavgvomcq430[address] [place], [place] [address]Dr. Garima Pulliam AST [Catalytic activity/Vol] 25 U/L Normal 15-37 [facility] Comment on above: Performed By: #### C MP, HSTROPN, BNP ####[facility] Ostcvqwbcu599[address] [place], [place] [address]Dr. Garima Pulliam Bilirubin [Mass/Vol] 0.4 mg/dL Normal 0.2-1.0 [facility] Comment on above: Performed By: #### C MP, HSTROPN, BNP ####[facility] [address]pwnjkh[address] [place] [address]Dr. Garima Pulliam Calcium [Mass/Vol] 8.9 mg/dL Normal 8.5-10.1 [facility] Comment on above: Performed By: #### C MP, HSTROPN, BNP ####[facility] Mwlaxnbjyd9598 [place] [address]Dr. Garima Pulliam Chloride [Moles/Vol] 103 mmol/L Normal 98-107 [facility] Comment on above: Performed By: #### C MP, HSTROPN, BNP ####[facility] Fwzarzukix8[address] [place], [place] [address]Dr. Garima Pulliam CO2 [Moles/Vol] 28.6 mmol/L Normal 21.0-32.0 [facility] Comment on above: Performed By: #### C MP, HSTROPN, BNP ####[facility] Vvzuzenglr20[address] [place], [place] [address]Dr. Garima Pulliam Creatinine [Mass/Vol] 0.72 mg/dL Normal 0.70-1.30 [facility] Comment on above: Performed By: #### C MP, HSTROPN, BNP ####[facility] Rdfgcngfni[address] [place], [place] [address]Dr. Garima Pulliam EGFR-AF BURUNDIAN >60 Normal >=60 [facility] Comment on above: Performed By: #### C MP, HSTROPN, BNP ####[facility] Ivqigiikvz[address] [place], [place] [address]Dr. Garima Pulliam EGFR-NON AF BURUNDIAN >60 Normal >=60 [facility] Comment on above: Performed By: #### C MP, HSTROPN, BNP ####[facility] Jytlkvaebn[address] [place], [place] [address]Dr. Garima Pulliam Globulin (S) [Mass/Vol] 2.5 g/dL Normal [facility] Comment on above: Performed By: #### C MP, HSTROPN, BNP ####[facility] Xbwumidmqc[address] [place], [place] [address]Dr. aGrima Pulliam Glucose [Mass/Vol] 114 mg/dL Critically high 74-106 T [facility] Comment on above: Performed By: #### C MP, HSTROPN, BNP ####[facility] Xkpduubavp6[address] [place] [address]Dr. Garima Pulliam Potassium [Moles/Vol] 4.1 mmol/L Normal 3.5-5.1 [facility] Comment on above: Performed By: #### C MP, HSTROPN, BNP ####[facility] Dapvtpixkl0363 [place] [address]Dr. Garima Pulliam Protein [Mass/Vol] 6.2 g/dL Critically low 6.4-8.2 [facility] Comment on above: Performed By: #### C MP, HSTROPN, BNP ####[facility] Mpopjxtatm24[address] [place] [address]Dr. Garima Pulliam Sodium [Moles/Vol] 137 mmol/L Normal 136-145 [facility] Comment on above: Performed By: #### C MP, HSTROPN, BNP ####[facility] Nsscgxieuz59[address] [place] [address]Dr. Garima Pulliam Urea nitrogen [Mass/Vol] 13.0 mg/dL Normal 7.0-18.0 [facility] Comment on above: Performed By: #### C MP, HSTROPN, BNP ####[facility] Zowphkjydk87[address] [place] [address]Dr. Garima Pulliam Urea nitrogen/Creatinine [Mass ratio] 18.1 mg/mg Normal [facility] Comment on above: Performed By: #### C MP, HSTROPN, BNP ####[facility] Urgyealqur[address] [place] [address]Dr. Garima Pulliam TROPONIN, HIGH SENSITIVITYon 11-27-2022 HSTROP 11.8 pg/mL Normal 4.0-76.1 [facility] Comment on above: Result Comment: CUT- OFF POINTS HAVE BEEN ESTABLISHED BASED ON THE FOURTH UNIVERSAL DEFINITIONS OF MYOCARDIALINFARCTION. THE UPPER REFERENCE LIMIT (URL) OF TROPONIN, DEFINED THE 99TH PERCENTILE OFcTnI DISTRIBUTION IN A REFERENCE POPULATION, HAS BEEN CONFIRMED THE DECISION THRESHOLDFOR DC DIAGNOSIS. Performed By: #### C MP, HSTROPN, BNP ####[facility] Rdqxwxvdqi4066 [place] [address]Dr. Chapisrenu Pulliam XR CHEST 1 Von 11-27-2022 XR CHEST 1 V Normal [facility] BNPon 11-20-2022 Natriuretic peptide B (Bld) [Mass/Vol] 73.0 pg/mL Normal <=900.0 [facility] Comment on above: Performed By: #### B MP, HSTROPN, BNP ####[facility] Qdgwgopewo9[address] [place] [address]Dr. Garima Pulliam CBC AUTO DIFFon 11-20-2022 BASO # 0.0 103/ul Normal 0.0-0.1 [facility] Comment on above: Performed By: #### C BC ####[facility] Srozfnfoya[address] [place], [place] [address]Dr. Garima Pulliam Basophils/100 WBC (Bld) 0.3 % Normal 0.2-2.0 [facility] Comment on above: Performed By: #### C BC ####[facility] Mydzptubzf655[address] [place], [place] [address]Dr. Garima Pulliam EO # 0.2 103/ul Normal 0.0-0.7 [facility] Comment on above: Performed By: #### C BC ####[facility] [address]yuyfjyydh[address] [place], [place] [address]Dr. Garima Pulliam Eosinophils/100 WBC (Bld) 2.1 % Normal 0.9-7.0 [facility] Comment on above: Performed By: #### C BC ####[facility] Vxszagwypp[address] [place], [place] [address]Dr. Garima Pulliam Erythrocyte distribution width (RBC) [Ratio] 13.2 % Normal 11.0-15.0 [facility] Comment on above: Performed By: #### C BC ####[facility] Ibvbwxpicf[address] [place], [place] [address]Dr. Garima Pulliam Hematocrit (Bld) [Volume fraction] 43.4 % Normal 42.0-54.0 [facility] Comment on above: Performed By: #### C BC ####[facility] Dzplnpcftv7983 [place] [address]DrAdalberto Pulliam Hemoglobin (Bld) [Mass/Vol] 14.6 g/dL Normal 14.0-18.0 [facility] Comment on above: Performed By: #### C BC ####[facility] Dzjldjbagk3503 [place] [address]DrAdalberto Pulliam IG # 0.02 10e3/ul Normal 0.00-0.03 [facility] Comment on above: Performed By: #### C BC ####[facility] Qypwigakjs[address] [place], [place] [address]DrAdalberto Pulliam IG % 0.2 % Normal 0.0-0.5 [facility] Comment on above: Performed By: #### C BC ####[facility] Lcsszfxeox7[address] [place], [place] [address]DrAdalberto Pulliam LYMPH # 2.1 103/ul Normal 1.2-3.8 [facility] Comment on above: Performed By: #### C BC ####[facility] Dpopqypwmy[address] [place], [place] [address]DrAdalberto Pulliam Lymphocytes/100 WBC (Bld) 19.2 % Critically low 20.5-60.0 [facility] Comment on above: Performed By: #### C BC ####[facility] Neuetngqge[address] [place], [place] [address]DrAdalberto Pulliam MANUAL DIFF REQ NO Normal [facility] Comment on above: Performed By: #### C BC ####[facility] Hosigzffnb4678 [place] [id number] Pulliam MCH (RBC) [Entitic mass] 30.4 pg Normal 25.9-34.0 [facility] Comment on above: Performed By: #### C BC ####[facility] Lqkyatfngv[address] [place] [id number] Pulliam MCHC (RBC) [Mass/Vol] 33.6 g/dL Normal 29.9-35.2 [facility] Comment on above: Performed By: #### C BC ####[facility] Piurzjqxkb23[address] [place] [address]DrAdalberto Pulliam MCV (RBC) [Entitic vol] 90.4 fL Normal 80.0-94.0 [facility] Comment on above: Performed By: #### C BC ####[facility] Kqapostvbb2646 [place] [address]DrAdalberto Pulliam MONO # 0.6 103/ul Normal 0.3-0.8 [facility] Comment on above: Performed By: #### C BC ####[facility] Cxscoytfgm3508 [place] [address]DrAdalberto Pulliam Monocytes/100 WBC (Bld) 5.8 % Normal 1.7-12.0 [facility] Comment on above: Performed By: #### C BC ####[facility] Xrnerjpqag9[address] [place], [place] [address]DrAdalberto Pulliam NEUT # 7.8 103/ul Critically high 1.4-6.5 [facility] Comment on above: Performed By: #### C BC ####[facility] Tdjksndnyb[address] [place], [place] [address]DrAdalberto Pulliam Neutrophils/100 WBC (Bld) 72.4 % Normal 43.0-75.0 [facility] Comment on above: Performed By: #### C BC ####[facility] Lvslifqtct[address] [place], [place] [address]DrAdalberto Pulliam Platelet mean volume (Bld) [Entitic vol] 8.7 fL Critically low 9.5-13.5 [facility] Comment on above: Performed By: #### C BC ####[facility] Rselnizwjn[address] [place], [place] [address]DrAdalberto Pulliam PLT 184 103/ul Normal 150-450 [facility] Comment on above: Performed By: #### C BC ####[facility] Ashqdx[address]vw[address] [place], [place] [address]DrAdalberto Pulliam RBC 4.80 106/ul Normal 4.70-6.10 [facility] Comment on above: Performed By: #### C BC ####[facility] Jpmbiputrg2913 [place] [id number] Pulliam WBC 10.8 103/ul Normal 4.0-11.0 [facility] Comment on above: Performed By: #### C BC ####[facility] Nszcankmmi2655 [place] [id number]. Garima Pulliam Covid-19 PCR (CVDTBH)on 10-24 SARS-CoV-2 (COVID-19) RNA MARIE+probe Ql (Unsp spec) Not detected Normal NOT DETECTED [facility] [...] for this test is supported by the Rug Cleaner of Health and Human Service's declaration that [...] used). Performed By: #### C VDTBH ####[facility] Dyumhflcwe[address] [place] [id number]. Garima Pulliam INFLUENZA A AND B AGon 11-20 INFLUANEGH SEE BELOW Normal [facility] Comment on above: Result Comment: Nega tive for Flu A protein angiten. Infection due to Flu A cannot be ruled out. Flu A angiten in the sample may be below the detection limit of the test. Performed By: #### I NFLUAB ####[facility] Aoflrncpnn[address] [place] [address]Dr. Garima Pulliam INFLUBNEGH SEE BELOW Normal [facility] Comment on above: Result Comment: Nega tive for Flu B protein antigen. Infection due to Flu B cannot be ruled out. Flu B antigen in the sample may be below the detection limit of the test. Performed By: #### I NFLUAB ####[facility] Ewfyqbhtoq26[address] [place] [address]Dr. Garima Pulliam INFLUENZA A AG Negative Normal NEGATIVE SEE COMMENT [facility] Comment on above: Performed By: #### I NFLUAB ####[facility] Kleofxqbky[address] [place], [place] [address]Dr. Garima Pulliam INFLUENZA B AG Negative Normal NEGATIVE SEE COMMENT [facility] Comment on above: Performed By: #### I NFLUAB ####[facility] Lhoqyzluwq[address] [place], [place] [address]Dr. Garima Pulliam PROF CHEM 8 (BAS METB)on Anion gap [Moles/Vol] 8.2 mmol/L Normal [facility] Comment on above: Performed By: #### B MP, HSTROPN, BNP ####[facility] Anqwxfbokp[address] [place], [place] [address]Dr. Garima Pulliam Calcium [Mass/Vol] 8.7 mg/dL Normal 8.5-10.1 [facility] Comment on above: Performed By: #### B MP, HSTROPN, BNP ####[facility] Zjfcsmistt[address] [place], [place] [address]Dr. Garima Pulliam Chloride [Moles/Vol] 103 mmol/L Normal 98-107 [facility] Comment on above: Performed By: #### B MP, HSTROPN, BNP ####[facility] Ovthcdmlbk[address] [place], [place] [address]Dr. Garima Pulliam CO2 [Moles/Vol] 29.4 mmol/L Normal 21.0-32.0 [facility] Comment on above: Performed By: #### B MP, HSTROPN, BNP ####[facility] Nukeytvbpf[address] [place], [place] [address]Dr. Garima Pulliam Creatinine [Mass/Vol] 0.69 mg/dL Critically low 0.70-1.30 [facility] Comment on above: Performed By: #### B MP, HSTROPN, BNP ####[facility] Qqvdskjwnb[address] [place] [address]Dr. Yilan Pulliam EGFR-AF BURUNDIAN >60 Normal >=60 [facility] Comment on above: Performed By: #### B MP, HSTROPN, BNP ####[facility] Ciqlnrhvnw62[address] [place] [address]Dr. Yilan Pulliam EGFR-NON AF BURUNDIAN >60 Normal >=60 [facility] Comment on above: Performed By: #### B MP, HSTROPN, BNP ####[facility] Eakonnjkiq[address] [place] [address]Dr. Garima Pulliam Glucose [Mass/Vol] 209 mg/dL Critically high 74-106 T [facility] Comment on above: Performed By: #### B MP, HSTROPN, BNP ####[facility] Izgnqjgpvr[address] [place], [place] [address]Dr. Garima Pulliam Potassium [Moles/Vol] 3.6 mmol/L Normal 3.5-5.1 [facility] Comment on above: Performed By: #### B MP, HSTROPN, BNP ####[facility] Xblozsokjv28[address] [place] [address]Dr. Garima Pulliam Sodium [Moles/Vol] 137 mmol/L Normal 136-145 [facility] Comment on above: Performed By: #### B MP, HSTROPN, BNP ####[facility] Dsffcawxtl[address] [place] [address]Dr. Garima Pulliam Urea nitrogen [Mass/Vol] 11.0 mg/dL Normal 7.0-18.0 [facility] Comment on above: Performed By: #### B MP, HSTROPN, BNP ####[facility] Xqswsjwxeg35[address] [place] [address]Dr. Garima Pulliam Urea nitrogen/Creatinine [Mass ratio] 15.9 mg/mg Normal [facility] Comment on above: Performed By: #### B MP, HSTROPN, BNP ####[facility] [address]yslmtek[address] [place] [id number]. Garima Pulliam TROPONIN, HIGH SENSITIVITYon 11-20-2022 HSTROP 8.7 pg/mL Normal 4.0-76.1 [facility] Comment on above: Result Comment: CUT- OFF POINTS HAVE BEEN ESTABLISHED BASED ON THE FOURTH UNIVERSAL DEFINITIONS OF MYOCARDIALINFARCTION. THE UPPER REFERENCE LIMIT (URL) OF TROPONIN, DEFINED THE 99TH PERCENTILE OFcTnI DISTRIBUTION IN A REFERENCE POPULATION, HAS BEEN CONFIRMED THE DECISION THRESHOLDFOR DC DIAGNOSIS. Performed By: #### B MP, HSTROPN, BNP ####[facility] [address]uz[address] [place] [address]Dr. Garima Pulliam XR CHEST 1 Von 11-20-2022 XR CHEST 1 V Normal [facility] XR CHEST 1 Von 10-02-2022 XR CHEST 1 V Normal [facility] BNPon 09-29-2022 Natriuretic peptide B (Bld) [Mass/Vol] 107.0 pg/mL Normal <=900.0 [facility] Comment on above: Performed By: #### C MP, BNP, CMADM ####[facility] Djntgpigev[address] [place] [address]Dr. Garima Pulliam CARDIAC NASH ADMITon 022 CK [Catalytic activity/Vol] 190 U/L Normal 39-308 [facility] Comment on above: Performed By: #### C MP, BNP, CMADM ####[facility] Ynrjteekmi[address] [place] [address]Dr. Garima Pulliam CK.MB [Mass/Vol] 11.11 ng/mL Critically high <=3.60 Th [facility] Comment on above: Performed By: #### C MP, BNP, CMADM ####[facility] Ewrbrunnfr[address] [place] [address]Dr. Garima Pulliam HSTROP 11.8 pg/mL Normal 4.0-76.1 [facility] Comment on above: Result Comment: CUT- OFF POINTS HAVE BEEN ESTABLISHED BASED ON THE FOURTH UNIVERSAL DEFINITIONS OF MYOCARDIALINFARCTION. THE UPPER REFERENCE LIMIT (URL) OF TROPONIN, DEFINED THE 99TH PERCENTILE OFcTnI DISTRIBUTION IN A REFERENCE POPULATION, HAS BEEN CONFIRMED THE DECISION THRESHOLDFOR DC DIAGNOSIS. Performed By: #### C MP, BNP, CMADM ####[facility] Fuyrfsjhqk[address] [place] [address]Dr. Garima Pulliam DORIS 133 ng/mL Critically high 16-96 [facility] Comment on above: Performed By: #### C MP, BNP, CMADM ####[facility] Unxdcdtrzs[address] [place] [address]Dr. Garima Pulliam CBC AUTO DIFFon 09-29-2022 BASO # 0.0 103/ul Normal 0.0-0.1 [facility] Comment on above: Performed By: #### C BC ####[facility] Fqoyicrfcw[address] [place], [place] [address]Dr. Garima Pulliam Basophils/100 WBC (Bld) 0.2 % Normal 0.2-2.0 [facility] Comment on above: Performed By: #### C BC ####[facility] Uogkqciiix[address] [place], [place] [address]Dr. Garima Pulliam EO # 0.1 103/ul Normal 0.0-0.7 [facility] Comment on above: Performed By: #### C BC ####[facility] Xkpfmccgdi[address] [place], [place] [address]Dr. Garima Pulliam Eosinophils/100 WBC (Bld) 1.4 % Normal 0.9-7.0 [facility] Comment on above: Performed By: #### C BC ####[facility] Hivgjfecyf[address] [place], [place] [address]Dr. Garima Pulliam Erythrocyte distribution width (RBC) [Ratio] 13.7 % Normal 11.0-15.0 [facility] Comment on above: Performed By: #### C BC ####[facility] Stioshirbk[address] [place], [place] [address]Dr. Garima Pulliam Hematocrit (Bld) [Volume fraction] 45.4 % Normal 42.0-54.0 [facility] Comment on above: Performed By: #### C BC ####[facility] Zjegozjnba[address] [place], [place] [address]Dr. Garima Pulliam Hemoglobin (Bld) [Mass/Vol] 14.8 g/dL Normal 14.0-18.0 [facility] Comment on above: Performed By: #### C BC ####[facility] Yobofswakm[address] [place] [address]Dr. Garima Pulliam IG # 0.04 10e3/ul Critically high 0.00-0.03 The [facility] Comment on above: Performed By: #### C BC ####[facility] Xcqprfmteq1690 [place] [address]Dr. Garima Pulliam IG % 0.5 % Normal 0.0-0.5 [facility] Comment on above: Performed By: #### C BC ####[facility] Twpwjfulgm64[address] [place], [place] [address]Dr. Garima Pulliam LYMPH # 1.1 103/ul Critically low 1.2-3.8 The [facility] Comment on above: Performed By: #### C BC ####[facility] Fwwnpzuraq[address] [place], [place] [address]Dr. Garima Pulliam Lymphocytes/100 WBC (Bld) 12.7 % Critically low 20.5-60.0 [facility] Comment on above: Performed By: #### C BC ####[facility] Okinueybyr[address] [place], [place] [address]Dr. Garima Pulliam MANUAL DIFF REQ NO Normal [facility] Comment on above: Performed By: #### C BC ####[facility] Jtngggnhxy[address] [place], [place] [address]Dr. Garima Pulliam MCH (RBC) [Entitic mass] 30.0 pg Normal 25.9-34.0 [facility] Comment on above: Performed By: #### C BC ####[facility] Rwyomzblho[address] [place], [place] [address]Dr. Garima Pulliam MCHC (RBC) [Mass/Vol] 32.6 g/dL Normal 29.9-35.2 [facility] Comment on above: Performed By: #### C BC ####[facility] Bqtqibajrr[address] [place], [place] [address]Dr. Garima Pulliam MCV (RBC) [Entitic vol] 91.9 fL Normal 80.0-94.0 [facility] Comment on above: Performed By: #### C BC ####[facility] Xroxzisler[address] [place] [address]DrAdalberto Garima Pulliam MONO # 0.4 103/ul Normal 0.3-0.8 [facility] Comment on above: Performed By: #### C BC ####[facility] Jfkrremvkz8691 [place] [address]DrAdalberto Garima Heraclio Monocytes/100 WBC (Bld) 4.8 % Normal 1.7-12.0 [facility] Comment on above: Performed By: #### C BC ####[facility] Hzypbtoamj[address] [place], [place] [address]DrAdalberto Nationrenu Pulliam NEUT # 7.1 103/ul Critically high 1.4-6.5 [facility] Comment on above: Performed By: #### C BC ####[facility] Lbbtnjowpd[address] [place], [place] [address]Dr. Garima Heraclio Neutrophils/100 WBC (Bld) 80.4 % Critically high 43.0-75.0 [facility] Comment on above: Performed By: #### C BC ####[facility] Ygdacrsvsg[address] [place], [place] [address]DrAdalberto Nationrenu Heraclio Platelet mean volume (Bld) [Entitic vol] 9.1 fL Critically low 9.5-13.5 [facility] Comment on above: Performed By: #### C BC ####[facility] Qitvoxpoqg0938 [place] [address]Dr. Garima Pulliam PLT 200 103/ul Normal 150-450 [facility] Comment on above: Performed By: #### C BC ####[facility] Hbnvxvytmf[address] [place], [place] [address]DrAdalberto Pulliam RBC 4.94 106/ul Normal 4.70-6.10 [facility] Comment on above: Performed By: #### C BC ####[facility] Pjgxxqigbv[address] [place], [place] [address]DrAdalberto Pulliam WBC 8.9 103/ul Normal 4.0-11.0 [facility] Comment on above: Performed By: #### C BC ####[facility] Tvolhcfzub[address] [place], [place] [address]PsAdalberto Pulliam Covid-19 PCR (CVDTB)on SARS-CoV-2 (COVID-19) RNA MARIE+probe Ql (Unsp spec) Not detected Normal NOT DETECTED [facility] [...] for this test is supported by the [place] of Health and Human Service's declaration that [...] used). Performed By: #### C VDTBH ####[facility] [address]wcze[address] [place], [place] [address]KfAdalberto Garima Pulliam LACTATE/LACTIC ACIDon 2021 Lactate [Moles/Vol] 1.7 mmol/L Normal 0.4-1.9 [facility] Comment on above: Performed By: #### L ACT ####[facility] [address]vl[address] [place], [place] [address]FvAdalberto Garima Heraclio PROF 14(COMP METB)on 022 Albumin [Mass/Vol] 3.8 g/dL Normal 3.4-5.0 [facility] Comment on above: Performed By: #### C MP, BNP, CMADM ####[facility] [address]sh[address]fxkow[address] [place] [id number]. Garima Pulliam Albumin/Globulin [Mass ratio] 1.5 {ratio} Normal [facility] Comment on above: Performed By: #### C MP, BNP, CMADM ####[facility] Mzlaaardns[address] [place] [address]Dr. Garima Pulliam ALP [Catalytic activity/Vol] 62 U/L Normal 46-116 [facility] Comment on above: Performed By: #### C MP, BNP, CMADM ####[facility] Vkowqozefc6[address] [place] [address]Dr. Garima Pulliam ALT [Catalytic activity/Vol] 37 U/L Normal 16-63 [facility] Comment on above: Performed By: #### C MP, BNP, CMADM ####[facility] Kganftvlej[address] [place] [address]Dr. Garima Pulliam Anion gap [Moles/Vol] 8.0 mmol/L Normal [facility] Comment on above: Performed By: #### C MP, BNP, CMADM ####[facility] Hdopxcgnzx96[address] [place] [address]Dr. Garima Pulliam AST [Catalytic activity/Vol] 20 U/L Normal 15-37 [facility] Comment on above: Performed By: #### C MP, BNP, CMADM ####[facility] Jcqaknuzca8665 [place] [address]Dr. Garima Pulliam Bilirubin [Mass/Vol] 0.6 mg/dL Normal 0.2-1.0 [facility] Comment on above: Performed By: #### C MP, BNP, CMADM ####[facility] Dwvykmukep9[address] [place] [address]Dr. Garima Heraclio Calcium [Mass/Vol] 9.1 mg/dL Normal 8.5-10.1 The [facility] Comment on above: Performed By: #### C MP, BNP, CMADM ####[facility] Iejvkaaxnl6062 [place] [address]Dr. Garima Pulliam Chloride [Moles/Vol] 103 mmol/L Normal 98-107 [facility] Comment on above: Performed By: #### C MP, BNP, CMADM ####[facility] Hxukbqvrtq7[address] [place] [id number]. Garima Pulliam CO2 [Moles/Vol] 31.8 mmol/L Normal 21.0-32.0 The [facility] Comment on above: Performed By: #### C MP, BNP, CMADM ####[facility] Qcbfkzxlzo2938 [place] [address]Dr. Garima Pulliam Creatinine [Mass/Vol] 0.63 mg/dL Critically low 0.70-1.30 [facility] Comment on above: Performed By: #### C MP, BNP, CMADM ####[facility] Cgnppmlwtn46[address] [place] [address]Dr. Garima Pulliam EGFR-AF BURUNDIAN >60 Normal >=60 [facility] Comment on above: Performed By: #### C MP, BNP, CMADM ####[facility] Kydtjghlut[address] [place] [address]Dr. Garima Pulliam EGFR-NON AF BURUNDIAN >60 Normal >=60 [facility] Comment on above: Performed By: #### C MP, BNP, CMADM ####[facility] Jjfixijupi50[address] [place] [address]Dr. Garima Pulliam Globulin (S) [Mass/Vol] 2.6 g/dL Normal [facility] Comment on above: Performed By: #### C MP, BNP, CMADM ####[facility] Gdegxetyns33[address] [place] [address]Dr. Garima Pulliam Glucose [Mass/Vol] 103 mg/dL Normal 74-106 [facility] Comment on above: Performed By: #### C MP, BNP, CMADM ####[facility] Vhlrwhclvs68[address] [place] [address]Dr. Garima Pulliam Potassium [Moles/Vol] 3.8 mmol/L Normal 3.5-5.1 [facility] Comment on above: Performed By: #### C MP, BNP, CMADM ####[facility] Futfbnhgkm4798 [place] [address]Dr. Garima Pulliam Protein [Mass/Vol] 6.4 g/dL Normal 6.4-8.2 [facility] Comment on above: Performed By: #### C MP, BNP, CMADM ####[facility] Blgbxtjtvg8563 [place] [address]Dr. Garima Pulliam Sodium [Moles/Vol] 139 mmol/L Normal 136-145 [facility] Comment on above: Performed By: #### C MP, BNP, CMADM ####[facility] Swcpqzykaz[address] [place], [place] [address]Dr. Garima Pulliam Urea nitrogen [Mass/Vol] 7.0 mg/dL Normal 7.0-18.0 [facility] Comment on above: Performed By: #### C MP, BNP, CMADM ####[facility] Uurzsoykgh[address] [place], [place] [address]Dr. Garima Pulliam Urea nitrogen/Creatinine [Mass ratio] 11.1 mg/mg Normal [facility] Comment on above: Performed By: #### C MP, BNP, CMADM ####[facility] [address]lovhmjufb[address] [place], [place] [address]Dr. Garima Pulliam PROTIMEon 09-29-2022 INR Coag (PPP) [Relative time] 1.14 {INR} Normal [facility] Comment on above: Performed By: #### P T, PTT ####[facility] Ndzgdahzcq[address] [place], [place] [address]Dr. Garima Pulliam INR GUIDELINES SEE BELOW Normal [facility] Comment on above: Result Comment: WESLEY RED INR: 2.0 - 3.0 CONDITIONS NOT LISTED BELOW 2.5 - 3.5 FOR PROSTHETIC HEART VALVE REPLACEMENT 2.5 - 3.5 RECURRENT THROMBOSIS Performed By: #### P T, PTT ####[facility] Kixwvlraxx20[address] [place], [place] [address]Dr. Garima Pulliam PT Coag (PPP) [Time] 12.2 s Critically high 9.0-11.6 [facility] Comment on above: Performed By: #### P T, PTT ####[facility] Irhgyyqtru[address] [place], [place] [address]Dr. Garima Pulliam PTTon 11-07-2022 aPTT Coag (Bld) [Time] 29.3 s Normal 22.3-36.2 [facility] Comment on above: Performed By: #### P T, PTT ####[facility] Brsmyforwo[address] [place], [place] [address]Dr. Garima Heraclio XR CHEST 1 Von 09-29-2022 XR CHEST 1 V Normal [facility] CBC AUTO DIFFon 09-26-2022 BASO # 0.0 103/ul Normal 0.0-0.1 [facility] Comment on above: Performed By: #### C BC ####[facility] Uglxmgapeh[address] [place], [place] [address]Dr. Garima Pulliam Basophils/100 WBC (Bld) 0.2 % Normal 0.2-2.0 [facility] Comment on above: Performed By: #### C BC ####[facility] Twhbojabqn[address] [place], [place] [address]Dr. Garima Pulliam EO # 0.1 103/ul Normal 0.0-0.7 [facility] Comment on above: Performed By: #### C BC ####[facility] Pelzqiwnlm[address] [place], [place] [address]Dr. Garima Pulliam Eosinophils/100 WBC (Bld) 1.0 % Normal 0.9-7.0 [facility] Comment on above: Performed By: #### C BC ####[facility] Inlponnjjz194[address] [place], [place] [address]Dr. Garima Pulliam Erythrocyte distribution width (RBC) [Ratio] 13.4 % Normal 11.0-15.0 [facility] Comment on above: Performed By: #### C BC ####[facility] Acorplcgrr[address] [place], [place] [address]Dr. Garima Pulliam Hematocrit (Bld) [Volume fraction] 46.3 % Normal 42.0-54.0 [facility] Comment on above: Performed By: #### C BC ####[facility] S[address]jpkxmrms[address] [place], [place] [address]Dr. Garima Pulliam Hemoglobin (Bld) [Mass/Vol] 15.3 g/dL Normal 14.0-18.0 [facility] Comment on above: Performed By: #### C BC ####[facility] Poarcccdmi[address] [place] [id number]. Chapisrenu Heraclio IG # 0.05 10e3/ul Critically high 0.00-0.03 [facility] Comment on above: Performed By: #### C BC ####[facility] Ublywxkxur9[address] [place] [id number]. Garima Pulliam IG % 0.4 % Normal 0.0-0.5 [facility] Comment on above: Performed By: #### C BC ####[facility] Klqpkqqxgn0171 [place] [id number]. Garima Pulliam LYMPH # 1.7 103/ul Normal 1.2-3.8 [facility] Comment on above: Performed By: #### C BC ####[facility] Counwvpdxc0[address] [place] [address]Dr. Garima Pulliam Lymphocytes/100 WBC (Bld) 12.7 % Critically low 20.5-60.0 [facility] Comment on above: Performed By: #### C BC ####[facility] Bmnfsuvvcq1414 [place] [id number]. Garima Pulliam MANUAL DIFF REQ NO Normal [facility] Comment on above: Performed By: #### C BC ####[facility] Mivleuhddn32[address] [place] [id number]. Garima Pulliam MCH (RBC) [Entitic mass] 30.1 pg Normal 25.9-34.0 [facility] Comment on above: Performed By: #### C BC ####[facility] Ichwvegihg7902 [place] [id number]. Chapisrenu Pulliam MCHC (RBC) [Mass/Vol] 33.0 g/dL Normal 29.9-35.2 [facility] Comment on above: Performed By: #### C BC ####[facility] Rvmjybnwqr0007 [place] [id number]. Garima Pulliam MCV (RBC) [Entitic vol] 91.1 fL Normal 80.0-94.0 [facility] Comment on above: Performed By: #### C BC ####[facility] Yvndejvcfc9767 [place] [id number]. Garima Pulliam MONO # 0.9 103/ul Critically high 0.3-0.8 [facility] Comment on above: Performed By: #### C BC ####[facility] Yohoxeweez4196 [place] [id number]. Garima Pulliam Monocytes/100 WBC (Bld) 7.0 % Normal 1.7-12.0 [facility] Comment on above: Performed By: #### C BC ####[facility] Schblfcnei6564 [place] [id number]. Garima Pulliam NEUT # 10.4 103/ul Critically high 1.4-6.5 [facility] Comment on above: Performed By: #### C BC ####[facility] Lwjgzqybwq7072 [place] [address]Dr. Garima Pulliam Neutrophils/100 WBC (Bld) 78.7 % Critically high 43.0-75.0 [facility] Comment on above: Performed By: #### C BC ####[facility] Ftjcxgyxtb[address] [place] [address]Dr. Garima Pulliam Platelet mean volume (Bld) [Entitic vol] 8.9 fL Critically low 9.5-13.5 [facility] Comment on above: Performed By: #### C BC ####[facility] Otzlnodevb[address]109 [place] [id number]. Garima Pulliam PLT 195 103/ul Normal 150-450 [facility] Comment on above: Performed By: #### C BC ####[facility] Ueatnztqlo7030 [place] [id number]. Garima Pulliam RBC 5.08 106/ul Normal 4.70-6.10 [facility] Comment on above: Performed By: #### C BC ####[facility] Jjbpgkhccj4441 [place] [id number]. Garima Pulliam WBC 13.2 103/ul Critically high 4.0-11.0 [facility] Comment on above: Performed By: #### C BC ####[facility] Wdxggomhyb4046 [place] [address]Dr. Garima Pulliam PROF 14(COMP METB)on 022 Albumin [Mass/Vol] 3.5 g/dL Normal 3.4-5.0 [facility] Comment on above: Performed By: #### C MP, HSTROPN ####[facility] Xksphrcriw70[address] [place] [address]Dr. Garima Pulliam Albumin/Globulin [Mass ratio] 1.2 {ratio} Normal [facility] Comment on above: Performed By: #### C MP, HSTROPN ####[facility] Bcchbabvwy3494 [place] [address]Dr. Garima Pulliam ALP [Catalytic activity/Vol] 71 U/L Normal 46-116 [facility] Comment on above: Performed By: #### C MP, HSTROPN ####[facility] Cectnttwoi[address] [place], [place] [address]Dr. Garima Pulliam ALT [Catalytic activity/Vol] 37 U/L Normal 16-63 [facility] Comment on above: Performed By: #### C MP, HSTROPN ####[facility] Kmulvzxcce[address] [place], [place] [address]Dr. Garima Pulliam Anion gap [Moles/Vol] 4.8 mmol/L Normal [facility] Comment on above: Performed By: #### C MP, HSTROPN ####[facility] Kdepqhtksg[address] [place], [place] [address]Dr. Garima Pulliam AST [Catalytic activity/Vol] 21 U/L Normal 15-37 [facility] Comment on above: Performed By: #### C MP, HSTROPN ####[facility] Isjuilqoac78[address] [place] [address]Dr. Garima Pulliam Bilirubin [Mass/Vol] 0.3 mg/dL Normal 0.2-1.0 [facility] Comment on above: Performed By: #### C MP, HSTROPN ####[facility] Fxxckouley9715 [place] [address]Dr. Garima Pulliam Calcium [Mass/Vol] 8.9 mg/dL Normal 8.5-10.1 [facility] Comment on above: Performed By: #### C DAVID, HSTROPN ####[facility] Tfvbprwodu6902 [place] [id number]. Garima Pulliam Chloride [Moles/Vol] 106 mmol/L Normal 98-107 [facility] Comment on above: Performed By: #### C DAVID, HSTROPN ####[facility] Xfdodgwugm9476 [place] [address]Dr. Garima Pulliam CO2 [Moles/Vol] 29.8 mmol/L Normal 21.0-32.0 [facility] Comment on above: Performed By: #### C DAVID, HSTROPN ####[facility] Cjcosieuae4325 [place] [address]Dr. Garima Pulliam Creatinine [Mass/Vol] 0.68 mg/dL Critically low 0.70-1.30 [facility] Comment on above: Performed By: #### C DAVID, HSTROPN ####[facility] Imkvhwrdzp[address] [place] [address]Dr. Garima Pulliam EGFR-AF BURUNDIAN >60 Normal >=60 [facility] Comment on above: Performed By: #### C DAVID, HSTROPN ####[facility] Ugeezhmswr8106 [place] [id number]. Garima Pulliam EGFR-NON AF BURUNDIAN >60 Normal >=60 [facility] Comment on above: Performed By: #### C DAVID, HSTROPN ####[facility] Eivrmiieub4248 [place] [id number]. Garima Pulliam Globulin (S) [Mass/Vol] 2.8 g/dL Normal [facility] Comment on above: Performed By: #### C DAVID, HSTROPN ####[facility] Fmmgsznnls9643 [place] [address]Dr. Garima Pulliam Glucose [Mass/Vol] 133 mg/dL Critically high 74-106 [facility] Comment on above: Performed By: #### C DAVID, HSTROPN ####[facility] Gumdtcdgdl2415 [place] [address]Dr. Garima Pulliam Potassium [Moles/Vol] 3.6 mmol/L Normal 3.5-5.1 [facility] Comment on above: Performed By: #### C MP, HSTROPN ####[facility] Jmodfangfz0486 [place] [address]Dr. Chapisrenu Pulliam Protein [Mass/Vol] 6.3 g/dL Critically low 6.4-8.2 [facility] Comment on above: Performed By: #### C MP, HSTROPN ####[facility] Fqiyllybbu4628 [place] [address]Dr. Chapisrenu Pulliam Sodium [Moles/Vol] 137 mmol/L Normal 136-145 [facility] Comment on above: Performed By: #### C MP, HSTROPN ####[facility] [address] [place] [address]Dr. Garima Pulliam Urea nitrogen [Mass/Vol] 15.0 mg/dL Normal 7.0-18.0 [facility] Comment on above: Performed By: #### C MP, HSTROPN ####[facility] Hlvztgsskz[address] [place] [address]Dr. Chapisrenu Pulliam Urea nitrogen/Creatinine [Mass ratio] 22.1 mg/mg Normal [facility] Comment on above: Performed By: #### C MP, HSTROPN ####[facility] [address]hiaflgeq[address] [place] [address]Dr. Garima Heraclio TROPONIN, HIGH SENSITIVITYon 09-26-2022 HSTROP 12.8 pg/mL Normal 4.0-76.1 [facility] Comment on above: Result Comment: CUT- OFF POINTS HAVE BEEN ESTABLISHED BASED ON THE FOURTH UNIVERSAL DEFINITIONS OF MYOCARDIALINFARCTION. THE UPPER REFERENCE LIMIT (URL) OF TROPONIN, DEFINED THE 99TH PERCENTILE OFcTnI DISTRIBUTION IN A REFERENCE POPULATION, HAS BEEN CONFIRMED THE DECISION THRESHOLDFOR DC DIAGNOSIS. Performed By: #### C MP, HSTROPN ####[facility] K[address]uqqdcyz[address] [place], [place] [address]DrAdalberto Pulliam XR CHEST 1 Von 09-26-2022 XR CHEST 1 V Normal [facility] XR CHEST 1 Von 09-16-2022 XR CHEST 1 V Normal [facility] CBC AUTO DIFFon 09-15-2022 BASO # 0.0 103/ul Normal 0.0-0.1 [facility] Comment on above: Performed By: #### C BC ####[facility] [address]qqfntq[address] [place] [address]Dr. Garima Pulliam Basophils/100 WBC (Bld) 0.1 % Critically low 0.2-2.0 [facility] Comment on above: Performed By: #### C BC ####[facility] Jjirfnviuq[address] [place], [place] [address]DrAdalberto Pulliam EO # 0.0 103/ul Normal 0.0-0.7 [facility] Comment on above: Performed By: #### C BC ####[facility] Sewzizyyur230[address] [place], [place] [address]Dr. Garima Pulliam Eosinophils/100 WBC (Bld) 0.1 % Critically low 0.9-7.0 [facility] Comment on above: Performed By: #### C BC ####[facility] Aozpgxvcjv[address] [place], [place] [address]Dr. Garima Pulliam Erythrocyte distribution width (RBC) [Ratio] 14.1 % Normal 11.0-15.0 [facility] Comment on above: Performed By: #### C BC ####[facility] Rhcrespkdh[address] [place], [place] [address]Dr. Garima Pulliam Hematocrit (Bld) [Volume fraction] 46.1 % Normal 42.0-54.0 [facility] Comment on above: Performed By: #### C BC ####[facility] Irfjtmwvoq[address] [place], [place] [address]DrAdalberto Pulliam Hemoglobin (Bld) [Mass/Vol] 15.0 g/dL Normal 14.0-18.0 [facility] Comment on above: Performed By: #### C BC ####[facility] Ukmrdketoi[address] [place], [place] [address]DrAdalberto Pulliam IG # 0.03 10e3/ul Normal 0.00-0.03 [facility] Comment on above: Performed By: #### C BC ####[facility] Ifxmsbkxow[address] [place] [address]Dr. Garima Heraclio IG % 0.3 % Normal 0.0-0.5 [facility] Comment on above: Performed By: #### C BC ####[facility] Rlqyaucliy[address] [place] [address]Dr. Garima Pulliam LYMPH # 0.6 103/ul Critically low 1.2-3.8 [facility] Comment on above: Performed By: #### C BC ####[facility] Kkawhbqcsk[address] [place] [address]Dr. Garima Pulliam Lymphocytes/100 WBC (Bld) 5.8 % Critically low 20.5-60.0 [facility] Comment on above: Performed By: #### C BC ####[facility] Vpipimkeqf[address] [place], [place] [address]Dr. Garima Pulliam MANUAL DIFF REQ NO Normal [facility] Comment on above: Performed By: #### C BC ####[facility] Lrqubcwquu655[address] [place], [place] [address]Dr. Garima Heraclio MCH (RBC) [Entitic mass] 30.2 pg Normal 25.9-34.0 [facility] Comment on above: Performed By: #### C BC ####[facility] Ytuozbjjcj128[address] [place], [place] [address]Dr. Garima Pulliam MCHC (RBC) [Mass/Vol] 32.5 g/dL Normal 29.9-35.2 [facility] Comment on above: Performed By: #### C BC ####[facility] Rsrhvdpboj6[address] [place], [place] [address]Dr. Garima Pulliam MCV (RBC) [Entitic vol] 92.8 fL Normal 80.0-94.0 [facility] Comment on above: Performed By: #### C BC ####[facility] Aiehplswoz116[address] [place], [place] [address]Dr. Garima Pulliam MONO # 0.3 103/ul Normal 0.3-0.8 [facility] Comment on above: Performed By: #### C BC ####[facility] Twvfyadkza[address] [place] [address]Dr. Garima Pulliam Monocytes/100 WBC (Bld) 3.2 % Normal 1.7-12.0 [facility] Comment on above: Performed By: #### C BC ####[facility] P[address]ewdeqrw[address] [place] [address]Dr. Garima Pulliam NEUT # 9.8 103/ul Critically high 1.4-6.5 [facility] Comment on above: Performed By: #### C BC ####[facility] Krprijfmje26[address] [place] [address]Dr. Garima Pulliam Neutrophils/100 WBC (Bld) 90.5 % Critically high 43.0-75.0 [facility] Comment on above: Performed By: #### C BC ####[facility] Khqillvimc[address] [place], [place] [address]DrAdalberto Garima Pulliam Platelet mean volume (Bld) [Entitic vol] 9.4 fL Critically low 9.5-13.5 [facility] Comment on above: Performed By: #### C BC ####[facility] Ugamkwnqgo5[address] [place], [place] [address]Dr. Garima Pulliam PLT 208 103/ul Normal 150-450 [facility] Comment on above: Performed By: #### C BC ####[facility] Pzkofpmldl[address] [place], [place] [address]Dr. Garima Pulliam RBC 4.97 106/ul Normal 4.70-6.10 [facility] Comment on above: Performed By: #### C BC ####[facility] Phrtjddtat[address] [place] [id number]. Garima Heraclio WBC 10.8 103/ul Normal 4.0-11.0 [facility] Comment on above: Performed By: #### C BC ####[facility] Yryyisgdzz4[address] [place] [address]DrAdalberto Pulliam PROF 14(COMP METB)on 10-24-2 022 Albumin [Mass/Vol] 4.0 g/dL Normal 3.4-5.0 [facility] Comment on above: Performed By: #### C MP ####[facility] Yfrsvqptrx8[address] [place] [address]Dr. Chapisrenu Heraclio Albumin/Globulin [Mass ratio] 1.5 {ratio} Normal [facility] Comment on above: Performed By: #### C MP ####[facility] Oapnvhdyyu[address] [place] [address]Dr. Garima Pulliam ALP [Catalytic activity/Vol] 73 U/L Normal 46-116 [facility] Comment on above: Performed By: #### C MP ####[facility] Gezubeayfj[address] [place], [place] [address]Dr. Garima Pulliam ALT [Catalytic activity/Vol] 42 U/L Normal 16-63 [facility] Comment on above: Performed By: #### C MP ####[facility] Wygfpgfnrr70[address] [place], [place] [address]Dr. Garima Pulliam Anion gap [Moles/Vol] 9.1 mmol/L Normal [facility] Comment on above: Performed By: #### C MP ####[facility] Sfksodvnjd20[address] [place], [place] [address]Dr. Garima Pulliam AST [Catalytic activity/Vol] 28 U/L Normal 15-37 [facility] Comment on above: Performed By: #### C MP ####[facility] Ulnedzytno[address] [place], [place] [address]Dr. Garima Pulliam Bilirubin [Mass/Vol] 0.6 mg/dL Normal 0.2-1.0 [facility] Comment on above: Performed By: #### C MP ####[facility] Nqhqrbyoxe[address] [place], [place] [address]Dr. Garima Pulliam Calcium [Mass/Vol] 8.6 mg/dL Normal 8.5-10.1 [facility] Comment on above: Performed By: #### C MP ####[facility] Fytshfdiye12[address] [place], [place] [address]Dr. Garima Pulliam Chloride [Moles/Vol] 105 mmol/L Normal 98-107 [facility] Comment on above: Performed By: #### C MP ####[facility] Lpasljhnby[address] [place] [address]Dr. Garima Pulliam CO2 [Moles/Vol] 28.5 mmol/L Normal 21.0-32.0 [facility] Comment on above: Performed By: #### C MP ####[facility] Vyorpxapxu[address] [place] [address]Dr. Garima Pulliam Creatinine [Mass/Vol] 0.78 mg/dL Normal 0.70-1.30 [facility] Comment on above: Performed By: #### C MP ####[facility] Ixkxrysdcz[address] [place] [address]Dr. Garima Pulliam EGFR-AF BURUNDIAN >60 Normal >=60 [facility] Comment on above: Performed By: #### C MP ####[facility] [address]yh[address] [place] [address]Dr. Garima Heraclio EGFR-NON AF BURUNDIAN >60 Normal >=60 [facility] Comment on above: Performed By: #### C MP ####[facility] Ivqkvwasxp46[address] [place] [address]Dr. Garima Pulliam Globulin (S) [Mass/Vol] 2.7 g/dL Normal [facility] Comment on above: Performed By: #### C MP ####[facility] Zenfqktwrm30[address] [place] [address]Dr. Garima Heraclio Glucose [Mass/Vol] 220 mg/dL Critically high 74-106 [facility] Comment on above: Performed By: #### C MP ####[facility] Esrqrmvddw5[address] [place] [id number]. Garima Pulliam Potassium [Moles/Vol] 3.6 mmol/L Normal 3.5-5.1 [facility] Comment on above: Performed By: #### C MP ####[facility] Ojvgzahtrc1784 [place] [id number]. Garima Pulliam Protein [Mass/Vol] 6.7 g/dL Normal 6.4-8.2 [facility] Comment on above: Performed By: #### C MP ####[facility] Buqhgyizwi7[address] [place] [phone]. Garima Heraclio Sodium [Moles/Vol] 139 mmol/L Normal 136-145 [facility] Comment on above: Performed By: #### C MP ####[facility] Itniorvgai3424 [place] [phone]. Garima Pulliam Urea nitrogen [Mass/Vol] 11.0 mg/dL Normal 7.0-18.0 [facility] Comment on above: Performed By: #### C MP ####[facility] Jwpjnmhcky[address] [place], [place] [address]Dr. Garima Heraclio Urea nitrogen/Creatinine [Mass ratio] 14.1 mg/mg Normal [facility] Comment on above: Performed By: #### C MP ####[facility] Leirgpykjv[address] [place], [place] [address]Dr. Garima Heraclio CARDIAC NASH 3-6on 2 CK [Catalytic activity/Vol] 240 U/L Normal 39-308 [facility] Comment on above: Performed By: #### C MREP ####[facility] Rtmlwftrtn[address] [place], [place] [address]Dr. Garima Heraclio CK.MB [Mass/Vol] 10.38 ng/mL Critically high <=3.60 Th [facility] Comment on above: Performed By: #### C MREP ####[facility] Knhduqjbnq[address] [place], [place] [address]Dr. Garima Heraclio HSTROP 18.5 pg/mL Normal 4.0-76.1 [facility] Comment on above: Result Comment: CUT- OFF POINTS HAVE BEEN ESTABLISHED BASED ON THE FOURTH UNIVERSAL DEFINITIONS OF MYOCARDIALINFARCTION. THE UPPER REFERENCE LIMIT (URL) OF TROPONIN, DEFINED THE 99TH PERCENTILE OFcTnI DISTRIBUTION IN A REFERENCE POPULATION, HAS BEEN CONFIRMED THE DECISION THRESHOLDFOR DC DIAGNOSIS. Performed By: #### C MREP ####[facility] Awvergaaoo[address] [place], [place] [address]Dr. Garima Pulliam CK [Catalytic activity/Vol] 257 U/L Normal 39-308 [facility] Comment on above: Performed By: #### C MREP ####[facility] Mcbfyptodq1193 [place] [phone]. Garima Pulliam CK.MB [Mass/Vol] 9.89 ng/mL Critically high <=3.60 [facility] Comment on above: Performed By: #### C MREP ####[facility] Jzrafuvvyh05[address] [place] [phone]. Garima Pulliam HSTROP 16.9 pg/mL Normal 4.0-76.1 [facility] Comment on above: Result Comment: CUT- OFF POINTS HAVE BEEN ESTABLISHED BASED ON THE FOURTH UNIVERSAL DEFINITIONS OF MYOCARDIALINFARCTION. THE UPPER REFERENCE LIMIT (URL) OF TROPONIN, DEFINED THE 99TH PERCENTILE OFcTnI DISTRIBUTION IN A REFERENCE POPULATION, HAS BEEN CONFIRMED THE DECISION THRESHOLDFOR DC DIAGNOSIS. Performed By: #### C MREP ####[facility] Irvopaothw[address] [place], [place] [address]Dr. Garima Heraclio CBC AUTO DIFFon 09-13-2022 BASO # 0.0 103/ul Normal 0.0-0.1 [facility] Comment on above: Performed By: #### C BC ####[facility] Betgnlofbp[address] [place], [place] [address]Dr. Garima Heraclio Basophils/100 WBC (Bld) 0.1 % Critically low 0.2-2.0 [facility] Comment on above: Performed By: #### C BC ####[facility] Kjhjtmhqya655[address] [place], [place] [address]Dr. Garima Pulliam EO # 0.0 103/ul Normal 0.0-0.7 [facility] Comment on above: Performed By: #### C BC ####[facility] Ypwipjapvl2350[address] [place], [place] [address]Dr. Garima Heraclio Eosinophils/100 WBC (Bld) 0.0 % Critically low 0.9-7.0 [facility] Comment on above: Performed By: #### C BC ####[facility] Qrdcpvkzsu293[address] [place], [place] [address]Dr. Chapisrenu Pulliam Erythrocyte distribution width (RBC) [Ratio] 13.6 % Normal 11.0-15.0 [facility] Comment on above: Performed By: #### C BC ####[facility] Scutbokgrm[address] [place] [address]Dr. Garima Pulliam Hematocrit (Bld) [Volume fraction] 48.2 % Normal 42.0-54.0 [facility] Comment on above: Performed By: #### C BC ####[facility] Udehxpdesr[address] [place], [place] [address]Dr. Garima Pulliam Hemoglobin (Bld) [Mass/Vol] 16.0 g/dL Normal 14.0-18.0 [facility] Comment on above: Performed By: #### C BC ####[facility] Txmslpkprd032[address] [place], [place] [address]Dr. Garima Pulliam IG # 0.02 10e3/ul Normal 0.00-0.03 [facility] Comment on above: Performed By: #### C BC ####[facility] Eznljorqks004[address] [place], [place] [address]Dr. Garima Pulliam IG % 0.3 % Normal 0.0-0.5 [facility] Comment on above: Performed By: #### C BC ####[facility] Lgpjetkuha597[address] [place], [place] [address]DrAdalberto Pulliam LYMPH # 0.5 103/ul Critically low 1.2-3.8 The [facility] Comment on above: Performed By: #### C BC ####[facility] Tullprwrxl[address] [place], [place] [address]Dr. Garima Pulliam Lymphocytes/100 WBC (Bld) 7.7 % Critically low 20.5-60.0 [facility] Comment on above: Performed By: #### C BC ####[facility] Qdydsmhazo325[address] [place], [place] [address]DrAdalberto Pulliam MANUAL DIFF REQ NO Normal [facility] Comment on above: Performed By: #### C BC ####[facility] Rkbvwleogr[address] [place] [address]Dr. Garima Pulliam MCH (RBC) [Entitic mass] 30.6 pg Normal 25.9-34.0 [facility] Comment on above: Performed By: #### C BC ####[facility] Dfvystdzfs9181 [place] [address]Dr. Garima Pulliam MCHC (RBC) [Mass/Vol] 33.2 g/dL Normal 29.9-35.2 [facility] Comment on above: Performed By: #### C BC ####[facility] Novwhzkcea[address] [place], [place] [address]DrAdalberto Pulliam MCV (RBC) [Entitic vol] 92.2 fL Normal 80.0-94.0 [facility] Comment on above: Performed By: #### C BC ####[facility] Pokmlfgquq155[address] [place], [place] [address]DrAdalberto Pulliam MONO # 0.0 103/ul Critically low 0.3-0.8 [facility] Comment on above: Performed By: #### C BC ####[facility] Cqfckmqtay[address] [place], [place] [address]Dr. Garima Pulliam Monocytes/100 WBC (Bld) 0.4 % Critically low 1.7-12.0 [facility] Comment on above: Performed By: #### C BC ####[facility] Htsyggwpwh[address] [place], [place] [address]DrAdalberto Pulliam NEUT # 6.2 103/ul Normal 1.4-6.5 [facility] Comment on above: Performed By: #### C BC ####[facility] Zlvcbciuvi785[address] [place], [place] [address]DrAdalberto Pulliam Neutrophils/100 WBC (Bld) 91.5 % Critically high 43.0-75.0 [facility] Comment on above: Performed By: #### C BC ####[facility] Simsbqsakt73[address] [place], [place] [address]DrAdalberto Pulliam Platelet mean volume (Bld) [Entitic vol] 8.7 fL Critically low 9.5-13.5 [facility] Comment on above: Performed By: #### C BC ####[facility] Bcdjlyghcs[address] [place], [place] [address]Dr. Garima Pulliam PLT 179 103/ul Normal 150-450 [facility] Comment on above: Performed By: #### C BC ####[facility] Gafyqrbqwf[address] [place] [address]Dr. Garima Pulliam RBC 5.23 106/ul Normal 4.70-6.10 [facility] Comment on above: Performed By: #### C BC ####[facility] Yjubwkdzrs8468 [place] [phone]. Garima Pulliam WBC 6.7 103/ul Normal 4.0-11.0 [facility] Comment on above: Performed By: #### C BC ####[facility] Lndqzirfwe[address] [place], [place] [address]DrAdalberto Pulliam PROF CHEM 8 (BAS METB)on Anion gap [Moles/Vol] 12.1 mmol/L Normal [facility] Comment on above: Performed By: #### B MP ####[facility] Nyxctgqakc[address] [place], [place] [address]DrAdalberto Pulliam Calcium [Mass/Vol] 8.7 mg/dL Normal 8.5-10.1 [facility] Comment on above: Performed By: #### B MP ####[facility] Pszwuvxcfo354[address] [place], [place] [address]DrAdalberto Pulliam Chloride [Moles/Vol] 105 mmol/L Normal 98-107 [facility] Comment on above: Performed By: #### B MP ####[facility] Tynwodxfnc[address] [place], [place] [address]DrAdalberto Pulliam CO2 [Moles/Vol] 25.5 mmol/L Normal 21.0-32.0 [facility] Comment on above: Performed By: #### B MP ####[facility] Onmjaqiewv[address] [place], [place] [address]DrAdalberto Pulliam Creatinine [Mass/Vol] 0.63 mg/dL Critically low 0.70-1.30 [facility] Comment on above: Performed By: #### B MP ####[facility] Pklroumngb[address] [place], [place] [address]DrAdalberto Pulliam EGFR-AF BURUNDIAN >60 Normal >=60 [facility] Comment on above: Performed By: #### B MP ####[facility] Bzdqnpkkyo99[address] [place], [place] [address]Gu. Garima Heraclio EGFR-NON AF BURUNDIAN >60 Normal >=60 [facility] Comment on above: Performed By: #### B MP ####[facility] Uhxodedzgd7009 [place], [place] [address]Wi. Garima Pulliam Glucose [Mass/Vol] 162 mg/dL Critically high 74-106 [facility] Comment on above: Performed By: #### B MP ####[facility] Azrovyjfqm1456 [place] [id number]. Garima Pulliam Potassium [Moles/Vol] 3.6 mmol/L Normal 3.5-5.1 [facility] Comment on above: Performed By: #### B MP ####[facility] Nturwepkug023[address] [place] [phone]. Garima Pulliam Sodium [Moles/Vol] 139 mmol/L Normal 136-145 [facility] Comment on above: Performed By: #### B MP ####[facility] Isicrboqdq9440 [place] [phone]. Garima Pulliam Urea nitrogen [Mass/Vol] 9.0 mg/dL Normal 7.0-18.0 [facility] Comment on above: Performed By: #### B MP ####[facility] Tdwynofbah5450 [place] [phone]. Garima Pulliam Urea nitrogen/Creatinine [Mass ratio] 14.3 mg/mg Normal [facility] Comment on above: Performed By: #### B MP ####[facility] Dhcyywzrys5575 [place] [phone]. Garima Pulliam CARDIAC NASH ADMITon 022 CK [Catalytic activity/Vol] 304 U/L Normal 39-308 [facility] Comment on above: Performed By: #### B MP, CMADM ####[facility] Gpeqyhnamj2855 [place] [phone]. Garima Pulliam CK.MB [Mass/Vol] 11.81 ng/mL Critically high <=3.60 Th e [facility] Comment on above: Performed By: #### B NANCY HERNANDEZ ####[facility] Wbolblyqda137[address] [place], [place] [address]Dr. Garima Pulliam HSTROP 13.3 pg/mL Normal 4.0-76.1 [facility] Comment on above: Result Comment: CUT- OFF POINTS HAVE BEEN ESTABLISHED BASED ON THE FOURTH UNIVERSAL DEFINITIONS OF MYOCARDIALINFARCTION. THE UPPER REFERENCE LIMIT (URL) OF TROPONIN, DEFINED THE 99TH PERCENTILE OFcTnI DISTRIBUTION IN A REFERENCE POPULATION, HAS BEEN CONFIRMED THE DECISION THRESHOLDFOR DC DIAGNOSIS. Performed By: #### B NANCY HERNANDEZ ####[facility] Ckpkatcvrk[address] [place], [place] [address]Dr. Garima Pulliam DORIS 133 ng/mL Critically high 16-96 [facility] Comment on above: Performed By: #### NANCY Larkin MP ####[facility] Izeolyqbrp180[address] [place], [place] [address]Dr. Garima Pulliam CBC AUTO DIFFon 09-12-2022 BASO # 0.0 103/ul Normal 0.0-0.1 [facility] Comment on above: Performed By: #### C BC ####[facility] Nmifivsogn[address] [place], [place] [address]Dr. Garima Pulliam Basophils/100 WBC (Bld) 0.2 % Normal 0.2-2.0 [facility] Comment on above: Performed By: #### C BC ####[facility] Oeiepcvxrc05[address] [place], [place] [address]Dr. Garima Pulliam EO # 0.2 103/ul Normal 0.0-0.7 [facility] Comment on above: Performed By: #### C BC ####[facility] Qrfjdfbsev02[address] [place], [place] [address]Dr. Garima Pulliam Eosinophils/100 WBC (Bld) 1.3 % Normal 0.9-7.0 [facility] Comment on above: Performed By: #### C BC ####[facility] Agxkbojmmo[address] [place], [place] [address]Dr. Garima Pulliam Erythrocyte distribution width (RBC) [Ratio] 13.7 % Normal 11.0-15.0 [facility] Comment on above: Performed By: #### C BC ####[facility] Inzhogpjtn17[address] [place] [address]Dr. Garima Pulliam Hematocrit (Bld) [Volume fraction] 46.4 % Normal 42.0-54.0 [facility] Comment on above: Performed By: #### C BC ####[facility] Igxjxvoezc6917 [place] [address]Dr. Garima Pulliam Hemoglobin (Bld) [Mass/Vol] 15.7 g/dL Normal 14.0-18.0 [facility] Comment on above: Performed By: #### C BC ####[facility] Y[address]it[address] [place], [place] [address]Dr. Garima Pulliam IG # 0.04 10e3/ul Critically high 0.00-0.03 [facility] Comment on above: Performed By: #### C BC ####[facility] Bydkbhrzza[address] [place], [place] [address]Dr. Garima Pulliam IG % 0.3 % Normal 0.0-0.5 [facility] Comment on above: Performed By: #### C BC ####[facility] Tgymfiibax[address] [place], [place] [address]Dr. Garima Pulliam LYMPH # 1.7 103/ul Normal 1.2-3.8 [facility] Comment on above: Performed By: #### C BC ####[facility] [address] [place] [address]Dr. Garima Pulliam Lymphocytes/100 WBC (Bld) 11.5 % Critically low 20.5-60.0 [facility] Comment on above: Performed By: #### C BC ####[facility] Odekheojmx[address] [place], [place] [address]Dr. Garima Pulliam MANUAL DIFF REQ NO Normal [facility] Comment on above: Performed By: #### C BC ####[facility] Yhyytmznbs[address] [place], [place] [address]Dr. Garima Pulliam MCH (RBC) [Entitic mass] 31.0 pg Normal 25.9-34.0 [facility] Comment on above: Performed By: #### C BC ####[facility] [address] [place] [address]Dr. Garima Pulliam MCHC (RBC) [Mass/Vol] 33.8 g/dL Normal 29.9-35.2 [facility] Comment on above: Performed By: #### C BC ####[facility] G[address] [place], [place] [address]DrAdalberto Pulliam MCV (RBC) [Entitic vol] 91.7 fL Normal 80.0-94.0 [facility] Comment on above: Performed By: #### C BC ####[facility] Ryxs[address]mcx[address] [place], [place] [address]DrAdalberot Pulliam MONO # 0.8 103/ul Normal 0.3-0.8 [facility] Comment on above: Performed By: #### C BC ####[facility] Z[address]ex[address] [place], [place] [address]DrAdalberto Pulliam Monocytes/100 WBC (Bld) 5.2 % Normal 1.7-12.0 [facility] Comment on above: Performed By: #### C BC ####[facility] Ez[address] [place], [place] [address]DrAdalberto Pulliam NEUT # 11.7 103/ul Critically high 1.4-6.5 [facility] Comment on above: Performed By: #### C BC ####[facility] Yukjnvwmta[address] [place], [place] [address]DrAdalberto Pulliam Neutrophils/100 WBC (Bld) 81.5 % Critically high 43.0-75.0 [facility] Comment on above: Performed By: #### C BC ####[facility] [address] [place], [place] [address]DrAdalberto Pulliam Platelet mean volume (Bld) [Entitic vol] 8.6 fL Critically low 9.5-13.5 [facility] Comment on above: Performed By: #### C BC ####[facility] P[address]ks[address] [place], [place] [address]Dr. Garima Pulliam PLT 191 103/ul Normal 150-450 [facility] Comment on above: Performed By: #### C BC ####[facility] [address] [place], [place] [address]Eq. Garima Pulliam RBC 5.06 106/ul Normal 4.70-6.10 [facility] Comment on above: Performed By: #### C BC ####[facility] [address] [place], [place] [address]Au. Garima Pulliam WBC 14.4 103/ul Critically high 4.0-11.0 [facility] Comment on above: Performed By: #### C BC ####[facility] [address] [place], [place] [address]Ls. Garima Pulliam Covid-19 PCR (CVDTBH)on 08-24 SARS-CoV-2 (COVID-19) RNA MARIE+probe Ql (Unsp spec) Not detected Normal NOT DETECTED [facility] [...] for this test is supported by the Rug Cleaner of Health and Human Service's declaration that [...] used). Performed By: #### C VDTBH ####[facility] [address] [place], [place] [address]Se. Garima Pulliam LACTATE/LACTIC ACIDon 2021 Lactate [Moles/Vol] 1.0 mmol/L Normal 0.4-1.9 [facility] Comment on above: Performed By: #### L ACT ####[facility] [address] [place] [address]Dr. Garima Pulliam PROF CHEM 8 (BAS METB)on Anion gap [Moles/Vol] 11.6 mmol/L Normal [facility] Comment on above: Performed By: #### NANCY Larkin MP ####[facility] Bclxhxcecx[address] [place], [place] [address]Dr. Garima Pulliam Calcium [Mass/Vol] 9.2 mg/dL Normal 8.5-10.1 [facility] Comment on above: Performed By: #### NANCY Larkin MP ####[facility] Gshbtaffks[address] [place], [place] [address]Dr. Garima Pulliam Chloride [Moles/Vol] 105 mmol/L Normal 98-107 [facility] Comment on above: Performed By: #### NANCY Larkin MP ####[facility] O[address] [place], [place] [address]Dr. Garima Pulliam CO2 [Moles/Vol] 25.9 mmol/L Normal 21.0-32.0 [facility] Comment on above: Performed By: #### NANCY Larikn MP ####[facility] F[address] [place], [place] [address]Dr. Garima Pulliam Creatinine [Mass/Vol] 0.72 mg/dL Normal 0.70-1.30 [facility] Comment on above: Performed By: #### NANCY Larkin MP ####[facility] Tywiv[address]oscq[address] [place], [place] [address]Dr. Garima Pulliam EGFR-AF BURUNDIAN >60 Normal >=60 [facility] Comment on above: Performed By: #### NANCY Larkin MP ####[facility] T[address] [place], [place] [address]Dr. Garima Pulliam EGFR-NON AF BURUNDIAN >60 Normal >=60 [facility] Comment on above: Performed By: #### NANCY Larkin MP ####[facility] Egutnh[address] [place], [place] [address]Dr. Garima Pulliam Glucose [Mass/Vol] 111 mg/dL Critically high 74-106 T [facility] Comment on above: Performed By: #### B DAVID, NANCY ####[facility] [address] [place] [id number]. Garima Pulliam Potassium [Moles/Vol] 3.5 mmol/L Normal 3.5-5.1 [facility] Comment on above: Performed By: #### B DAVID, NANCY ####[facility] [address] [place], [place] [address]Fc. Garima Pulliam Sodium [Moles/Vol] 139 mmol/L Normal 136-145 [facility] Comment on above: Performed By: #### B DAVID, NANCY ####[facility] [address] [place] [address]Dr. Garima Pulliam Urea nitrogen [Mass/Vol] 7.0 mg/dL Normal 7.0-18.0 [facility] Comment on above: Performed By: #### B DAVID, NANCY ####[facility] [address] [place] [address]Dr. Garima Pulliam Urea nitrogen/Creatinine [Mass ratio] 9.7 mg/mg Normal [facility] Comment on above: Performed By: #### B DAVID, NANCY ####[facility] [address] [place] [id number]. Garima Pulliam XR CHEST 1 Von 09-12-2022 XR CHEST 1 V Normal [facility] Vital Signs Date Time Vital Sign Value Performing Clinician Adam moore 04-06-2025 17:45-0400 Diastolic blood pressure 71 mm[Hg] Kym Espino DO Work Phone: [facility] 04-06-2025 17:45-0400 Heart rate 63 /min Kym Espino DO Work Phone: [facility] 04-06-2025 17:45-0400 Respiratory rate 18 /min Kym Espino DO Work Phone: [facility] 04-06-2025 17:45-0400 Systolic blood pressure 142 mm[Hg] Kym Espino DO Work Phone: [facility] 04-06-2025 17:15-0400 SaO2% (BldA) [Mass fraction] 91 % Kym Espino DO Work Phone: [facility] 04-06-2025 15:35-0400 Body temperature 98.29 [degF] Kym Espino DO Work Phone: [facility] 04-06-2025 04:03-0400 Body mass index (BMI) [Ratio] 22.52 kg/m2 Kym Espino DO Work Phone: [facility] 04-06-2025 04:03-0400 Body weight 73.2 kg Kym Espino DO Work Phone: [facility] 04-05-2025 09:13-0400 Body height 180.3 cm Kym Espino DO Work Phone: [facility] 04-04-2025 20:52-0400 Body temperature 37 Kym Espino DO Work Phone: [facility] 04-04-2025 17:00-0400 Body temperature 37 Kym Espino DO Work Phone: [facility] 03-19-2025 13:00-0400 Diastolic blood pressure 87 mm[Hg] Maria Del Rosario Carbajal MD Work Phone: [facility] 03-19-2025 13:00-0400 Heart rate 72 /min Maria Del Rosario Carbajal MD Work Phone: [facility] 03-19-2025 13:00-0400 Respiratory rate 11 /min Maria Del Rosario Carbajal MD Work Phone: [facility] 03-19-2025 13:00-0400 SaO2% (BldA) [Mass fraction] 97 % Maria Del Rosario Carbajal MD Work Phone: [facility] 03-19-2025 13:00-0400 Systolic blood pressure 143 mm[Hg] Maria Del Rosario Carbajal MD Work Phone: [facility] 03-19-2025 09:41-0400 Body temperature 37 Maria Del Rosario Carbajal MD Work Phone: [facility] 03-19-2025 08:38-0400 Body temperature 97.3 [degF] Maria Del Rosario Carbajal MD Work Phone: [facility] Encounters Encounter Date Encounter Type Care Provider Facility Start: 04-06-2025 ambulatory Meng burton [facility] - [facility] Start: 04-06-2025 End: 04-08-2025 Evaluation and management of inpatient [facility] Stress Lab 1 [facility] Non-Invasive Cardiology Comment on above: Arrived Start: 04-04-2025 End: 04-06-2025 Evaluation and management of inpatient Kym Espino DO Work Phone: 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 Start: 03-29-2025 End: 03-29-2025 ambulatory Trisha Rosa Facility:[facility]iel Start: 03-19-2025 End: 03-19-2025 Emergency department patient visit Maria Del Rosario Carbajal MD Work Phone: [facility] Emergency Department Comment on above: COPD exacerbation (H CC) (Primary Dx); Essential hypertension Start: 03-13-2025 ambulatory Trisha Rosa Facility:[facility] Start: 04-04-2023 End: 04-05-2023 ambulatory KENTRELL CHAPIN Facility: Start: 03-30-2023 End: 03-31-2023 ambulatory KENTRELL CHAPIN [...] CHAPIN Facility:[facility] Start: 12-10-2022 End: 12-10-2022 ambulatory KETNRELL CHAPIN Facility:[facility] Start: 11-27-2022 End: 11-27-2022 ambulatory [...] Start: 09-15-2022 End: 09-16-[address] NASH KNOWLES Facility:[facility] Start: 09-13-2022 End: 09-13-[address] SEBAS CABALLERO . Facility: Procedures Date Procedure Procedure Detail Performing Clinician Start: 04-06-2025 GLUCOSE, WHOLE BLOOD St mia Macedo MD Work Phone: Start: 04-06-2025 Percutaneous coronar y intervention Yusef Marquez MD Work Phone: Start: 04-06-2025 Myocardial spect mul tiple studies Afshan Thompson ROLLER COASTER ENGINEER - FOREST ECONOMIST Work Phone: Start: 04-06-2025 GLUCOSE, WHOLE BLOOD St mia Macedo MD Work Phone: Start: 04-06-2025 GLUCOSE, WHOLE BLOOD St mia Macedo MD Work Phone: Start: 04-06-2025 Rhythm ecg 1-3 leads w/interpretation & report Unknown Provider Result Start: 04-06-2025 C-reactive protein Hector Macedo MD Work Phone: Start: 04-06-2025 Natriuretic peptide Laurie Thompson ROLLER COASTER ENGINEER - FOREST ECONOMIST Work Phone: Start: 04-05-2025 GLUCOSE, WHOLE BLOOD St mia Macedo MD Work Phone: Start: 04-05-2025 GLUCOSE, WHOLE BLOOD St mia Macedo MD Work Phone: Start: 04-05-2025 Rhythm ecg 1-3 leads w/interpretation & report Unknown Provider Result Start: 04-05-2025 GLUCOSE, WHOLE BLOOD St mia Macedo MD Work Phone: Start: 04-05-2025 Echo tthrc r-t 2d w/wom-mode compl spec&colr d Radha Macedo MD Work Phone: Start: 04-05-2025 C-reactive protein Hector Macedo MD Work Phone: Start: 04-05-2025 Natriuretic peptide Ray Macedo MD Work Phone: Start: 04-05-2025 GLUCOSE, WHOLE BLOOD St mia Macedo MD Work Phone: Start: 04-05-2025 Rhythm ecg 1-3 leads w/interpretation & report Unknown Provider Result Start: 04-05-2025 Gluc bld gluc mntr d ev cleared fda spec home use Radha Macedo MD Work Phone: Start: 04-05-2025 GLUCOSE, WHOLE BLOOD St mia Macedo MD Work Phone: Start: 04-05-2025 RESPIRATORY PANEL, MOLECULAR, WITH COVID-19 Haley Ortiz ROLLER COASTER ENGINEER - FOREST ECONOMIST Work Phone: Start: 04-04-2025 GLUCOSE, WHOLE BLOOD St mia Macedo MD Work Phone: Start: 04-04-2025 Blood gases any comb ination ph pco2 po2 co2 hco3 Radha Macedo MD Work Phone: Start: 04-04-2025 GLUCOSE, WHOLE BLOOD Ja lucretia Castillobal DO Work Phone: Start: 04-04-2025 Ct thorax w/contrast material Kym Espino DO Work Phone: Start: 04-04-2025 C-reactive protein Hector Macedo MD Work Phone: Start: 04-04-2025 Hemoglobin glycosylated a1c Kym Espino DO Work Phone: Start: 04-04-2025 Dup-scan xtr veins c omplete bilateral study Kym Espino DO Work Phone: Start: 04-04-2025 Blood gases any comb ination ph pco2 po2 co2 hco3 Kym Espino DO Work Phone: Start: 04-04-2025 Radiologic exam ches t single view Kym Espino DO Work Phone: Start: 04-04-2025 Basic metabolic pane l calcium total Kym Espino DO Work Phone: Start: 04-04-2025 End: 04-04-2025 Ecg routine ecg w/least 12 lds i&r only Kym Espino DO Work Phone: Start: 03-19-2025 Assay of troponin quantitative Maria Del Rosario Carbajal MD Work Phone: Start: 03-19-2025 Blood gases any comb ination ph pco2 po2 co2 hco3 Maria Del Rosario Carbajal MD Work Phone: Start: 03-19-2025 Radiologic exam ches t single view Maria Del Rosario Carbajal MD Work Phone: Start: 03-19-2025 Comprehensive metabo lic panel Maria Del Rosario Carbajal MD Work Phone: Start: 03-19-2025 Ecg routine ecg w/le ast 12 lds w/i&r Maria Del Rosario Carbajal MD Work Phone: Plan of Treatment Date Care Activity Detail Author Start: 04-06-2026 GFR test (Diabetes, CKD 3-4, OR last GFR 15-59) GFR test (Diabetes, CKD 3-4, OR last GFR 15-59) [facility] Start: 04-06-2026 Lipid panel Lipids [facility] Start: 07-05-2025 Hemoglobin A1c measurement A1C test (Diabetic or Prediabetic) [facility] Start: 06-23-2025 Influenza vaccination Flu vacc ine (Season Ended) [facility] Start: 04-13-2025 End: 04-06-2026 Basic metabolic 2000 panel - Serum or Plasma Basic Metabolic Panel Lab Routine COPD with acute exacerbation (HCC) Idiopathic cardiomyopathy (HCC) New onset type 2 diabetes mellitus (HCC) Coronary artery disease involving wrangell coronary artery of wrangell heart without angina pectoris Expected: 04/13/2025, Expires: 04/06/2026 [facility] Comment on above: Expected: 04/13/2025 , Expires: 04/06/2026 Start: 04-13-2025 End: 04-06-2026 CBC W Auto Differential panel - Blood CBC with Auto Differential Lab Routine COPD with acute exacerbation (HCC) Idiopathic cardiomyopathy (HCC) New onset type 2 diabetes mellitus (HCC) Coronary artery disease involving wrangell coronary artery of wrangell heart without angina pectoris Expected: 04/13/2025, Expires: 04/06/2026 [facility] Comment on above: Expected: 04/13/2025 , Expires: 04/06/2026 Start: 03-19-2025 Annual Wellness Visi t (Medicare) Annual Wellness Visit (Medicare) [facility] Start: 07-24-2024 COVID-19 Vaccine ( season) COVID-19 Vaccine ( season) [facility] Start: 2019 Abdominal aortic aneurysm screening AAA screen [facility] Start: 2014 Respiratory Syncytia l Virus (RSV) or age 60 yrs+ (1 - Risk 60-74 years 1-dose series) Respiratory Syncytial Virus (RSV) or age 60 yrs+ (1 - Risk 60-74 years 1-dose series) [facility] Start: 2004 Screening for malign ant neoplasm of lung Lung Cancer Screening &/or Counseling [facility] Start: 2004 Shingles vaccine (1 of 2) Shingles vaccine (1 of 2) [facility] Start: 1999 Screening for malign ant neoplasm of colon [facility] Start: 1973 DTaP/Tdap/Td vaccine (1 - Tdap) DTaP/Tdap/Td vaccine (1 - Tdap) [facility] Start: 1973 Pneumococcal 50+ yea rs Vaccine (1 of 2 - PCV) Pneumococcal 50+ years Vaccine (1 of 2 - PCV) [facility] Start: 1972 Glaucoma screening Diabetic retinal exam [facility] Start: 1972 Hepatitis C screening Hepatitis C sc reen [facility] Start: 1972 Urine screening for protein Diabetic Alb to Cr ratio (uACR) test [facility] Start: 1966 Depression Screen Depression Screen [facility] Start: 1964 Diabetic foot examination Diabetic foot exam [facility] Start: 1964 Lipid panel Lipids [facility] [employer] End: 03-19-2025 Blood Gas, Venous Blood Gas, Venous Lab STAT One Time for 1 Occurrences starting 03/19/2025 until 03/19/2025 [facility] Comment on above: One Time for 1 Occur rences starting 03/19/2025 until 03/19/2025 End: 04-11-2025 CBC W Auto Differential panel - Blood CBC with Auto Differential Lab Routine Daily for 7 Days starting 04/05/2025 until 04/11/2025, 2 completed [facility] [employer] Comment on above: Daily for 7 Days sta rting 04/05/2025 until 04/11/2025, 2 completed End: 04-11-2025 Comprehensive Metabolic Panel w/ Reflex to MG Comprehensive Metabolic Panel w/ Reflex to MG Lab Routine Daily for 7 Days starting 04/05/2025 until 04/11/2025, 2 completed [facility] Comment on above: Daily for 7 Days sta rting 04/05/2025 until 04/11/2025, 2 completed EKG 12 Lead EKG 12 Lead ECG STAT 03/19/2025 8:45 AM EDT [facility] Glucose [Mass/volume ] in Serum or Plasma [facility] Comment on above: 4X Daily (AC & HS) u ntil discontinued starting 04/04/2025, 1 completed As Needed until disc ontinued starting 04/04/2025 End: 04-04-2025 Intermittent pulse oximetry Pulse Oximetry Spot Check Respiratory Care Routine One Time for 1 Occurrences starting 04/04/2025 until 04/04/2025 [facility] Comment on above: One Time for 1 Occur rences starting 04/04/2025 until 04/04/2025 End: 04-06-2025 Lipid panel [facility] Comment on above: One Time for 1 Occur rences starting 04/06/2025 until 04/06/2025 End: 04-04-2025 Respiratory care evaluation only Respiratory care evaluation only Respiratory Care Routine One Time for 1 Occurrences starting 04/04/2025 until 04/04/2025 [facility] Comment on above: One Time for 1 Occur rences starting 04/04/2025 until 04/04/2025 End: 03-19-2025 SPECIMEN REJECTION [facility] Comment on above: Once for 1 Occurrenc es starting 03/19/2025 until 03/19/2025 Payers Date Payer Category Payer Medicare [id number] 2019 Unknown [id number] 1959 Medicaid [id number] 1959 Unknown [id number] 1959 Unknown [id number] 1954 Unknown [id number] 2.16.84 0.1.976158.3.579.2.593 1954 Unknown [id number] 2.16.84 0.1.166608.3.579.2.593 1954 Unknown [id number] 2.16.84 0.1.960629.3.579.2.593 1954 Unknown [id number] 2.16.84 0.1.653143.3.579.2.593 1954 Unknown [id number] 2.16.84 0.1.410367.3.579.2.593 1954 Unknown [id number] 2.16.84 0.1.677377.3.579.2.593 1954 Unknown [id number] 2.16.84 0.1.238954.3.579.2.593 1954 Unknown [id number] .16.84 0.1.814165.3.579.2.593 1954 Unknown [id number] ..[id number] 0.1.002066.3.579.2.593 1954 Unknown [id number] 2.16.84 0.1.200326.3.579.2.593 1954 Unknown [id number] .16.84 0.1.004719.3.579.2.593 1954 Unknown [id number] .16.84 0.1.052937.3.579.2.593 1954 Unknown [id number] ..[id number] 0.1.595283.3.579.2.593 1954 Unknown [id number] .16.84 0.1.451044.3.579.2.593 1954 Unknown [id number] 2.16.84 0.1.301075.3.579.2.593 1954 Unknown [id number] 2.16.84 0.1.223995.3.579.2.593 1954 Unknown [id number] 2.16.84 0.1.480759.3.579.2.593 1954 Unknown [id number] 2.16.84 0.1.279336.3.579.2.593 1954 Unknown [id number] 2.16.84 0.1.347304.3.579.2.593 1954 Unknown [id number] 2.16.84 0.1.721159.3.579.2.593 1954 Unknown [id number] 2.16.8 40.1.259404.3.579.2.727 1954 Unknown [id number] 2.16.8 40.1.991756.3.579.2.173 1954 Unknown [id number] 2.16.8 40.1.362299.3.579.2.173 1954 Unknown [id number] 2.16.8 40.1.548621.3.579.2.173 Social History Date Type Detail Facility Tobacco smoking stat [facility] Tobacco smoking consumption unknown [facility] Start: 03-12-2013 End: 04-05-2025 History of Social function [facility] [employer] [facility] [employer] Start: 03-12-2013 End: 04-05-2025 [facility] Start: 1955 Sex assigned at Not on file [facility] Start: 01-02-2013 Sex Male (finding) [facility] Start: 11-23-1966 Tobacco smoking status MDIS [facility]okes tobacco [facility] Start: 11-23-1966 History of tobacco use Cigarette Smoker [facility] Start: 04-05-2025 Tobacco use and exposure Former smokeless tobacco user [facility] History of tobacco use Chews Tobacco [facility] Start: 04-06-2025 End: 04-07-2025 Alcoholic beverage intake Current drinker of alcohol (finding) [facility] Has the [employer], [employer] or water [employer] threatened to shut off services in your home in past 12Mo No [facility] How often to you hav e a drink containing alcohol? 2-3 time sa week [facility] How many standard dr inks containing alcohol do you have on a typical day? 1 or 2 [facility] How often do you hav e 6 or more drinks on 1 occasion? Never [employer] [facility] [employer] (I/We) worried wheth er (my/our) food would run out before (I/we) got money to buy more. Never true [employer] [facility] In the past 12 month s, has lack of transportation kept you from medical appointments or from getting medications? No [employer] [facility] Functional Status Date Assessment Result Facility [facility] History of Present illness Narrative 04-06-2025 Roro Arreola - 04/06/2025 6:40 PM EDTKay Thibodeaux RN - 04/06/2025 4:57 PM EDHaley Duque PTA - 04/06/2025 3:41 PM EDTCRoslyn Perera MSW, CONTROL PANEL OPERATOR - 04/06/2025 3:27 PM EDT Note Date & Type Note Facility 04-06-2025 History of Present illness Narrative Discharge instructions reviewed, questions answered. Iv removed All discharge instructions given. All questions answered at this time. All belongings returned. [facility] Inpatient/Observation/Outpatient Rehabilitation Date: 04/06/2025 Patient Name: [...] does not require skilled services due to: Therapist/Spinning Machine Operator will attempt to see this patient, at our earliest opportunity. Haley Lee, SLAT BASKET MAKER MACHINE Date: 04/06/2025 Cosigned by Vonnie Pelayo PT at 04/06/2025 4:07 PM EDT [employer] referral made for pt at his request through nursing. CHERELLE Rojas LSW 04/06/2025 Occupational Therapy Facility/Department: [facility] Daily Treatment Note NAME: Nic García : 1955 Date of Service: 04/06/2025 Discharge Recommendations: Home with assist PRN, Home with nursing scheduler, Other (Comment) (Consider meals on wheels or [...] Recommendations: Home with assist PRN;Home with nursing scheduler;Other (Comment) (Consider meals on wheels or home [...] understanding to safety as relates to ADL's. Pump House Technician Goals Time Frame for Mcc Goals : 2 weeks Mcc Goal 1: Pt. will return to SLAT BASKET MAKER MACHINE ADL status. Patient Goals Patient goals : Get stronger Therapy Time Individual Concurrent Group Co-treatment Time In 1446 Time Out 1506 Minutes 20 Roslyn Rodríguez OT Returned to room to see patient for monitor instruction review and answer questions. Patient was able to perform all steps but did not have him actually jasmin finger as he did this yesterday. Informed he would be instructed at discharge when to check glucose levels. Reviewed handout on hypoglycemia and proper treatment. Encourage no juice, or regular [...] given to call with questions or concerns. Pt continues to refuse to wear telemetry Pt reported he had inhaler in room and it is now gone. Nurse looked throughout room and contacted respiratory, inhaler was not found. Myra slater, e learning manager was notified. Pt returned from stress test stating that he was not going to wear telemetry because he was leaving. Pt stated he had been here long enough and had things to do. Patient signed ama paper. RESPIRATORY ASSESSMENT PROTOCOL Patient Name: [facility] Room#: 0322/0322-01 : 1955 Admitting diagnosis: Shortness [...] Chemistry: No results found for: PHART , BNW7EQD , PO2ART , [id number] , GCE7HYH , PBEA , NBEA VITALS Pulse: 60 Respirations: 18 BP: (!) 165/88 SpO2: 90 % O2 Device: None (Room air) Temp: 98.5 F (36.9 C) SKIN COLOR [x] Normal [] Pale [] [...] CESSATION EDUCATION provided according to policy RT_201: (nash with an X) ____Yes ____ No ____ NA Smoking Cessation Booklet given: ____Yes ____No ____Patient Refused Pt taken to stress test Physical Therapy Facility/Department: [facility] Daily Treatment Note NAME: Nic [...] exercises B LE x20, unable to copmlete on B LEs. Gait wiht CGA for safety [id number], no noted LOB, forward flexed posture with short shuffled gait noted. Activity [...] Pelayo PT at 04/06/2025 12:27 PM EDT Pt resting in chair, denies needs at this time. Vitals and assessment completed. Call light in reach, bed alarm on. Pt agitated after being informed he couldn't have coffee due to stress test being ordered Product/Industry Consultant at bedside to complete evening assessment. Upon entry to room, pt in chair, respirations unlabored while on RA. Vitals obtained and assessment completed, see flow sheet for details. Pt denies needs from keno writer / runner at this time. Call light in reach. Care is ongoing. Met with Patient this a.m. to discuss discharge planning. Patient is a 69 year old, legally , white male, admitted with a diagnosis of Acute Respiratory Failure with Hypoxia. He is alert and oriented, polite and cooperative throughout this assessment. States that his plan will be to return home following this hospitalization. Patient [place]. Has a cat Stephanie for companionship. Uses a nebulizer machine, inhalers, a walker for inside and a cane for outside and grab bars in his bathroom for assistance. Patient has no outside resources or services currently in place. Does his own shopping, cooking, housekeeping, etc. He is retired and an [employer] having served in [place] during the [place] era. Patient drives himself and provides for his own transportation needs. Minimal support network identified at this time. Patient has no PCP at present. Chooses [facility] from list of providers. He does have medical insurance and reports no difficulty with affording his medications at this time. Discharge plan is home when stable. He is a 'Full Code' status and has no Advanced Directives currently on file. Discussed importance of identifying medical decision makers and he responds I just don't know who that might be. CONTROL PANEL OPERATOR to remain involved and assist with discharge planning as appropriate. AYSHA Downs 04/05/2025 Returned to room to see patient for glucometer instruction. Patient was given AgaMatrix Pro meter with 100 test strips and 100 lancets. Instructed on use and safe needle disposal. Patient was able to perform a glucose test without difficulty. Verbal cues provided. He was given target range for glucose. Reminded of the effects of steroids on glucose. A1C pending. Seems more irritable at this time than earlier this am. Informed patient educator will stop back tomorrow. Encourage him to review info in folder and will review monitor use again and answer questions. Physical Therapy Facility/Department: [facility] Physical Therapy Initial Assessment Name: [...] Level of Assist for Transfers: Independent Active Material Dispatcher: Yes Mode of Transportation: Truck Occupation: Retired Leisure & Hobbies: Play with cat,tv Additional Comments: Pt. uses inhaler at home for SOB. Vision/Hearing Vision Vision: Impaired Vision Exceptions: Wears glasses for reading Hearing Hearing: Within functional limits Cognition Orientation Overall Orientation Status: Within Functional Limits Objective Temp: 97.7 F (36.5 C) Pulse: 76 Heart Rate Source: Monitor;Apical Respirations: [...] 10 Minutes CARLITO BOND PT,DPT Cosigned by Radha Macedo MD at 04/05/2025 5:16 PM EDT Occupational Therapy Facility/Department: [facility] Occupational Therapy Initial Assessment Name: [...] Level of Assist for Transfers: Independent Active Material Dispatcher: Yes Mode of Transportation: Truck Occupation: Retired Leisure & Hobbies: Play with cat,tv Objective Temp: 97.7 F (36.5 C) Pulse: 90 Heart Rate Source: Monitor;Apical Respirations: [...] understanding to safety as relates to ADL's. Pump House Technician Goals Time Frame for Mcc Goals : 2 weeks Pump House Technician Goal 1: Pt. will return to SLAT BASKET MAKER MACHINE ADL status. Patient Goals Patient goals : Get stronger Therapy Time Individual Concurrent Group Co-treatment Time In 1020 Time Out 1038 Minutes 18 Timed Code Treatment Minutes: 0 Minutes Arabella Juarez OT Cosigned by Radha Macedo MD at 04/05/2025 12:53 PM EDT Echocardiogram/doppler done at bedside. Instructed on policies and procedures. Vitals and assessment completed at this time. Patient up to chair, A&O x4. No c/o pain. Lungs diminished throughout with expiratory noted in bilateral upper lobes. Heart sounds normal. No needs at this time. Call light and bedside table in reach. Chair alarm on. Will continue to monitor Comprehensive Nutrition Assessment Type and Reason for [...] pitting edema) Extremities (+1 pitting +2 pitting) Nursery Supervisor Strength: Not Performed Nutrition Assessment: Altered nutrition-related [...] he want to eat. Breakfast consists of egg, sausage, potatoes and maybe toast with a black coffee. Lunch is typically a ham sandwich with chips and dinner is a protein with a starchy [...] Measures: Height: 180.3 cm (5' 10.98 ) [place] Body Weight (IBW): 172 lbs (78 kg) [...] age over 65 Hematology: Recent Labs 04/04/25 16204/05/25 0701 WBC 10.2 10.6 HGB 14.6 14.6 [...] Used for Energy Requirements: Current Energy (kcal/day): 0300-2828 (25-28kcal/kg) Weight Used for Protein Requirements: [place] Protein (g/day): 94-109 (1.2-1.4g/kg) Method Used for Fluid Requirements: 1 ml/kcal Fluid (ml/day): 6822-0913 Nutrition Diagnosis: Altered nutrition-related lab values related [...] Planning: Continue current diet Angelique Whitfield Contact: [phone], IVETT at 04/05/2025 8:22 AM EDT Progress Note SUBJECTIVE: Patient seen [...] 146/88 Pulse: 73 Resp: 20 Temp: 97 F (36.1 C) SpO2: 94% Weight - Scale: 72.9 kg (160 lb 11.2 oz) Height: 180.3 cm (5' 10.98 ) Weight Wt Readings from Last 3 Encounters: 04/05/25 72.9 kg (160 lb 11.2 oz) 05/13/21 90.4 kg (199 lb 6.4 oz) Body mass index is 22.42 kg/m . 24HR INTAKE/OUTPUT: No intake or output data [...] 9.3 Last 3 Blood Glucose: Recent Labs 04/04/25162404/05/252704/05/25 0701 GLUCOSE 563* 282 203* Comprehensive Metabolic Profile: Recent Labs 04/04/25162404/05/252704/05/25 0701 NA 133* -- 137 K 3.7 [...] bedtime Hemoglobin A1c pending Diabetic diet Consult tube worker Imaging: no further imaging studies ordered today Medications: Continue metformin-upon chart review it appears patient was on metformin several years ago. Humalog sliding scale Hypoglycemia protocol Hypertension Condition is improving Treatment plan: Appreciate Cardiology Monitor labs Imaging: Echo ordered Medications: Continue losartan Weaned off Cardene Hydralazine as needed Nutrition status: at risk for malnutrition Manufacturing Tech consult initiated I/O Daily weight Monitor Daily intake Nutritional Supplements as tolerated MALNUTRITION ASSESSMENT AND PLAN The following was documented by the Dietitian: Malnutrition Assessment Context of Malnutrition: Acute Illness (04/05/25 0736) Acute Illness - Energy Intake : No [...] pitting +2 pitting) (04/05/25734) Acute Illness - Nursery Supervisor Strength: Not Performed (04/05/25735) Acute Illness - [...] Full Code Disposition: Discharge plan is pending [facility] Advanced Care Planning documentation: [x] I have confirmed that the patient's Advance Care Plan is present, Code Status is documented, or surrogate decision maker is listed in the patient's [...] the patient's medical record. [DOES NOT SATISFY [facility] PERFORMANCE] GABRIELA Love CNP , GABRIELA, GREEN PLUMBER-C Hospitalist Medicine 04/05/2025, 8:34 AM Cosigned by Radha Macedo MD at 04/05/2025 12:53 PM EDT Associated attestation - Radha Macedo MD - 04/05/2025 12:53 PM EDT Images from the original note were not included. [address], [place], [place], [address] Attestation Patient: Nic García Date of Admission: 04/04/2025 4:06 PM Hospital Day # 1 Date of Evaluation: 04/05/2025 I personally evaluated and examined the patient [id number] in conjunction with the PA/GREEN PLUMBER and agree with the management and dispostition of the patient. Please see the PA/GREEN PLUMBER's note for full details. My bain findings are: SUBJECTIVE: Patient seen for [...] staff as well. OBJECTIVE: Vitals: Temp: 97.7 F (36.5 C) BP: (!) 156/78 Respirations: 24 Pulse: 76 SpO2: 90 % Weight Wt Readings from Last 3 Encounters: 04/05/25 72.9 kg (160 lb 11.5 oz) 05/13/21 90.4 kg (199 lb 6.4 oz) Body mass index is 22.43 kg/m . 24HR INTAKE/OUTPUT: Intake/Output Summary (Last 24 hours) [...] Blood Count: Recent Labs 04/04/25 16204/05/25 0701 WBC 10.2 10.6 RBC 4.83 4.77 [...] for: LACTA High Sensitivity Troponin: Recent Labs 04/04/25162404/04/25 1815 TROPHS 42* 55* Radiology/Imaging: CT CHEST [...] with the plan as outlined in the GREEN PLUMBER/PA's note Disposition: Discharge plan is pending Please note that this chart was generated using voice recognition [employer] dictation software. Although every effort was made to ensure the accuracy of this automated water control station engineer, some errors in water control station engineer may have occurred. Radha Macedo MD 04/05/2025 12:52 PM Patient admitted to [facility] room 322- ambulating x1 assist from ER stretcher to bed, tolerating well. Patient arrives to room alert and oriented x4- calm and cooperative with assessment. Currently denies pain at time of assessment. Admission navigator complete with assistance from patient. Lung juarez clear; diminished bilaterally- dyspnea noted on exertion, patient recovering well. Oxygen titrated to 2L nasal cannula with spo2 saturation of 94%- per patient he is room air at baseline. Patient free of incontinence at this time- min in place prior to admission to floor- chronic per patient. No additional requests from keno writer / runner- call light placed within reach, bed in lowest position and alarm engaged to promote patient safety. Product/Industry Consultant encourage s use of call light for assistance. Plan of care on going. documented in this encounter [facility] Discharge instructions 04-06-2025 Discharge InstructionsDischarge Instr - ActivityDischarge Instr - Diet Note Date & Type Note Facility 04-06-2025 Hospital Discharg e instructions Kay Thibodeaux RN - 04/06/2025 3:21 PM [...] two hours after the procedure. The arm and hand may now be used for normal daily activities except, avoid using the heal of hand while getting up and down from furniture for the first few days. Keep affected arm elevated, hand higher than elbow, while pressure dressing in place to decrease swelling. 1) Gauze and Elastoplast Remove in 4 hours as follows: TIME 10:00PM __ Remove 1 piece of tape at a [...] taking more than one drug. This includes [id number] medicine and herb or dietary supplements. Plan [...] by your doctor. Call Your Doctor at [phone] or go to the closest Emergency department [...] think you have an emergency, CALL 911 Roro Arreola - 04/06/2025 5:48 PM EDT Activity as tolerated Roro Arreola - 04/06/2025 5:49 PM EDT [...] most local grocery stores, pharmacies, and chain [employer]-stores. If you have any questions about your diet or nutrition, call the hospital and ask for the dietitian. Diabetic, low sodium diet documented in this encounter [facility] Discharge instructions 03-19-2025 Discharge InstructionsAttachments Note Date & Type Note Facility 03-19-2025 Hospital Discharg e instructions Maria Del Rosario Carbajal MD - 03/19/2025 1:23 PM EDT Please take your medications as prescribed. Please call cardiology to schedule follow-up visit you may need a cardiac workup. The following attachments cannot be sent through Care Everywhere.COPD: General Info (Salvadorean)Diet: DASH (Salvadorean)Hypertension: General Info (Salvadorean)documented in this encounter [facility] Evaluation note Note Date & Type Note Facility Evaluation note Diagnosis COPD exacerbation (HCC)- Primary Obstructive chronic bronchitis with exacerbation Essential hypertension Unspecified essential hypertension documented in this encounter [facility] Evaluation note Note Date & Type Note Facility Evaluation note Diagnosis Acute respiratory failure with hypoxia (HCC)- [...] diabetes mellitus (HCC) Coronary artery disease involving wrangell coronary artery of wrangell heart without angina pectoris COPD with acute exacerbation (HCC) Obstructive chronic bronchitis with exacerbation Uncontrolled hypertension Unspecified essential hypertension New onset type 2 diabetes mellitus (HCC) Non-ischemic cardiomyopathy (HCC) Other primary cardiomyopathies Hypertensive left ventricular hypertrophy with heart failure (HCC) Coronary artery disease involving wrangell coronary artery of wrangell heart without angina pectoris Hypertensive urgency Unspecified essential hypertension Abnormal stress test Other nonspecific abnormal cardiovascular system function study Hyperlipidemia LDL goal <70 Other and unspecified hyperlipidemia Abnormal stress test Other nonspecific abnormal cardiovascular system function study Idiopathic cardiomyopathy (HCC) Other primary cardiomyopathies documented in this encounter [facility] Reason for visit Narrative Auth/Cert Note Date & Type Note Facility Reason for visit Narrative Specialty Diagnoses / Procedures Referred By Ancelmo farmer Referred To Contact Diagnoses Acute respiratory failure with hypoxia (HCC) Radha Macedo MD [address] [place] [address] Phone: tel: fax: [facility] [address] [place] [address] Referral ID Status Reason Start Date Expiration Date Visits Re quested Visits Authorized [id number] 1 [facility] Summary Purpose Family History No Family History Records FoundNo Family History Records FoundNo Family History Records FoundNo Family History Records Found Advance Directives No Advanced Directives Records Found Date Activated Date Inactivated Comments 04/04/2025 8:08 PM Date Activated Date Inactivated Comments 04/04/2025 8:08 PM 04/06/2025 8:44 PM Additional Source Comments (unrecognized sect ion and content) No Status Records FoundNo Status Records FoundNo Status Records FoundNo Status Records Found INFORMATION SOURCE (unrecogn ized section and content) DATE CREATED AUTHOR 04/08/2023 [facility] DATE CREATED AUTHOR AUTHOR'S ORGANIZ ATION 04/01/2025 [facility] DATE CREATED AUTHOR AUTHOR'S ORGANIZ ATION 04/07/2025 [facility] DATE CREATED AUTHOR AUTHOR'S ORGANIZ ATION 04/09/2025 [facility] Reason for Visit (unrecogniz ed section and content) Reason Comments Shortness of Breath Pt complains of SOB, onset last night, has hx of COPD and HT, pt has not been taking BP meds Reason Comments Shortness of Breath Pt reports sob at hi s baseline d/t copd. Today used his inhalers with no relief and sob increased. Specialty Diagnoses / Procedures Referred By Ancelmo farmer Referred To Contact Diagnoses Acute respiratory failure with hypoxia (HCC) Radha Macedo MD [address] [place] [address] Phone: tel: fax: [facility] [address] [place] [address] Referral ID Status Reason Start Date Expiration Date Visits Re quested Visits Authorized [id number] 1 1 Ordered Prescriptions (unrec ognized section and content) Prescription Sig Dispense Quantity Refills Last Filled Start Date End Date albuterol sulfate HFA (VENTOLIN HFA) 108 (90 Base) MCG/ACT inhaler Inhale 2 puffs into the lungs 4 times daily as needed for Wheezing 18 g 03/19/2025 predniSONE (DELTASONE) 50 MG tablet Take 1 tablet by mouth daily for 5 days 5 tablet 03/19/2025 5 Prescription Sig Dispense Quantity Refills Last Filled Start Date End Date albuterol (PROVENTIL) (2.5 MG/3ML) 0.083% nebulizer solutionIndicatio ns:COPD with acute exacerbation (HCC) Take 3 mLs by nebulization every 4 hours as needed for Wheezing 120 each 3 04/06/2025 predniSONE (DELTASONE) 20 MG tablet Take 1 tablet by mouth 2 times daily for 5 days 10 tablet 04/06/2025 5 doxycycline hyclate (VIBRA-TABS) 100 MG tablet Take 1 tablet by mouth 2 times daily for 5 days 10 tablet 04/06/2025 5 losartan-hydroCHL OROthiazide (HYZAAR) 100-25 MG per tablet Take 1 tablet by mouth daily 30 tablet 5 04/06/2025 metoprolol succinate (TOPROL XL) 25 MG extended release tablet Take 1 tablet by mouth daily 30 tablet 3 04/07/2025 atorvastatin (LIPITOR) 40 MG tablet Take 1 tablet by mouth nightly 30 tablet 3 04/06/2025 metFORMIN (GLUCOPHAGE) 500 MG tablet Take 1 tablet by mouth 2 times daily (with meals) 60 tablet 3 04/06/2025 glipiZIDE (GLUCOTROL) 5 MG tablet Take 1 tablet by mouth every morning (before breakfast) 60 tablet 3 04/07/2025 aspirin 81 MG chewable tablet Take 1 tablet by mouth daily 30 tablet 3 04/07/2025 Scheduled Active and Recently Administ ered Medications (unrecognized section and content) Medication Order 03/17/2025 03/18/2025 03/19/2025 hydrALAZINE (APRESOLINE) injection 10 mg (COMPLETED) 10 mg, IntraVENous, ONCE, 1 dose, On 03/19/25 at 0945 1000 (Given - Provid er: Juliet Monroy RN) ipratropium 0.5 mg-albuterol 2.5 mg (DUONEB) nebulizer solution 3 Dose (COMPLETED) 3 Dose, Inhalation, Once, 1 dose, On 03/19/25 at 0900, Initiate RT Bronchodilator Protocol: No 0910 (Given - Provid er: Stephan Manriquez RCP) methylPREDNISolone sodium succ (SOLU-MEDROL) 60 mg in sterile water 0.96 mL injection (COMPLETED) 60 mg, IntraVENous, ONCE, On 03/19/25 at 1315, For 1 dose, Reconstitute 125 mg vial with 2 mL diluent. 1312 (Given - Provid er: Janina Ma RN) metoprolol (LOPRESSOR) injection 5 mg (COMPLETED) 5 mg, IntraVENous, ONCE, 1 dose, On 03/19/25 at 1145 1138 (Given - Provid er: Janina Ma RN) potassium chloride (KLOR-CON M) extended release tablet 40 mEq (COMPLETED) 40 mEq, Oral, ONCE, 1 dose, On 03/19/25 at 0945, Do not crush or break. Do not crush, chew, or suck on tablet. Tablet may also be broken in half and each half swallowed separately. 0959 (Given - Provid er: Juliet Monroy RN) PRN Medication Order 03/17/2025 03/18/2025 03/19/2025 albuterol sulfate HFA (PROVENTIL;VENTOLIN;PROAIR) 108 (90 Base) MCG/ACT inhaler 2 puff 2 puff, Inhalation, EVERY 6 HOURS PRN, Starting on 03/19/25 at 1326, Until Discontinued, Wheezing, Initiate RT Bronchodilator Protocol: No 1338 (Given - Provid er: Janina Ma RN - Comment: sent home [facility] patient) Scheduled Medication Order 04/04/2025 04/05/2025 04/06/2025 albuterol (PROVENTIL) (2.5 MG/3ML) 0.083% nebulizer solution 2.5 mg (CANCELED) 2.5 mg, Nebulization, 4 TIMES DAILY RESP, First dose on Thu04/04/25 at 2014, Until Discontinued, Initiate RT Bronchodilator Protocol: Yes - Inpatient Protocol 2031 (Given - Provider: Martínez Jane KITCHEN MANAGER - Comment: pt SOB) aspirin chewable tablet 81 mg 81 mg, Oral, DAILY, First dose on Thu04/06/25 at 1215, Until Discontinued 1305 (Given - Provider: Roro Arreola) atorvastatin (LIPITOR) tablet 40 mg 40 mg, Oral, NIGHTLY, First dose on Thu04/06/25 at 2100, Until Discontinued 2100 (Due) azithromycin (ZITHROMAX) 500 mg in sodium chloride 0.9 % 250 mL IVPB ([id number]) 500 mg, IntraVENous, EVERY 24 HOURS, 3 doses, First dose on Thu04/04/25 at 2014, Last dose on Thu04/06/25 at 2014, Antimicrobial Indications: COPD Exacerbation, COPD exacerbation duration of therapy: Other, Other COPD Exacerbation Duration: 3 days, Use 20mm (Blue) [id number] Adapter Preparation instructions: Attach medication vial to one 20mm (Blue) [id number] adapter. Kenneth fluid bag with adapter, mix, and administer per order. 2254 (New Bag - Provider: Gail Etienne RN)2354 (Stopped - Provider: Gail Etienne RN) 2113 (New Bag - Provider: Amisha Gutierrez RN)2222 (Stopped - Provider: Amisha Gutierrez RN) 2014 (Due) cefTRIAXone (ROCEPHIN) 1,000 mg in sterile water [...] 2051 (Given - Provider: Amisha Gutierrez RN) 2014 (Due) enoxaparin (LOVENOX) injection 40 mg 40 mg, [...] 0700, Until Discontinued, Substituted for glyburide (DIABETA). 07 (Given - Provider: Roro Arreola) guaiFENesin (MUCINEX) extended release tablet 600 mg 600 mg, Oral, 2 TIMES DAILY, First dose on Thu04/04/25 at 2100, Until Discontinued, Do not crush or break. 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 0201 (Given - Provider: Gail Etienne RN)0818 (Given - Provider: Melly Sandy RN)1432 (Given - Provider: Melly Sandy RN)2102 (Given - Provider: Amisha Gutierrez RN) 0122 (Given - Provider: Amisha Gutierrez RN)0828 (Given - Provider: Roro Arreola)1442 (Given - Provider: Roro Arreola)2000 (Due) metoprolol succinate (TOPROL XL) extended release tablet 25 mg 25 mg, Oral, DAILY, First dose on Thu04/05/25 at 1630, Until Discontinued, Do not crush or chew. 170 (Given - Provider: Melly Sandy RN) 1305 [...] On Thu04/04/25 at 1900, For 1 dose 1916 (New Bag - Provider: Gail Etienne, SERENITY)1953 (Stopped - Provider: Gail Etienne RN) sodium [...] 2249 (Given - Provider: Gail Etienne RN) 0819 (Given - Provider: Melly Sandy RN)2047 (Given - Provider: Amisha Gutierrez RN) 0828 (Given - Provider: Roro Arreola)2100 (Due) Continuous Medication Order 04/04/2025 04/05/2025 04/06/2025 0.9 % sodium chloride infusion (CANCELED) IntraVENous, at 75 mL/hr, CONTINUOUS, Starting on Thu04/04/25 at 2015, For 24 hours, Complete last bag that is running at 24 hours and then saline lock IV 2220 (New Bag - Provider: Gail Etienne RN)2355 (Stopped - Provider: Gail Etienne RN) niCARdipine (CARDENE) 25 mg in sodium chloride 0.9 % 250 mL infusion ([id number]) (CANCELED) 2.5-15 mg/hr (25-150 mL/hr), IntraVENous, CONTINUOUS, [...] used to maintain goal. Use 20mm (Blue) [id number] Adapter Preparation instructions: Attach medication vial to one 20mm (Blue) [id number] adapter. Kenneth fluid bag with adapter, mix, and administer per order. 2201 (New Bag - Provider: Gail Etienne RN)2230 (Rate/Dose Change - Provider: Mele Knowles RN)2320 (Rate/Dose Change - Provider: Gail Etienne RN) 0000 (Rate/Dose Change - Provider: Gail Etienne RN)0018 (Rate/Dose Change - Provider: Gail Etienne, RN)0034 (Stopped - Provider: Gail Etienne RN) [...] PRN, Starting on Thu04/04/25 at 2001, Until Discontinued, Pain Mild (1-3), allowed for higher pain score per patient request, Fever, For temp greater than 100.4 F (38 C), Administer if oral route cannot be used. acetaminophen (TYLENOL) tablet 650 mg(Linked Group 2) 650 mg, Oral, EVERY 6 HOURS PRN, Starting on Thu04/04/25 at 2001, Until Discontinued, Pain Mild (1-3), allowed for higher pain score per patient request, Fever, For temp greater than 100.4 F (38 C), Maximum dose of acetaminophen is 4000 mg from all sources in 24 hours. albuterol (PROVENTIL) (2.5 MG/3ML) 0.083% nebulizer solution 2.5 mg 2.5 mg, Nebulization, EVERY 6 HOURS PRN, Starting on Thu04/04/25 at 1853, Until Discontinued, Wheezing, Initiate RT Bronchodilator Protocol: Yes - Inpatient Protocol 1911 (Given - Provider: Martínez Jane RCP) albuterol (PROVENTIL) (2.5 MG/3ML) 0.083% nebulizer solution 2.5 mg 2.5 mg, Nebulization, EVERY 4 HOURS PRN, Starting on Thu04/05/25 at 0211, Until Discontinued, Wheezing, Initiate RT Bronchodilator Protocol: Yes - Inpatient Protocol 44 (Given - Provider: Tamara Alfaro RCP) benzonatate (TESSALON) capsule 100 mg 100 mg, Oral, 3 TIMES DAILY PRN, Starting on Thu04/04/25 at 2005, Until Discontinued, Cough 1227 (Given - Provider: Melly Sandy [...] PRN, Starting on Thu04/04/25 at 2007, Until Discontinued, Low blood sugar, Blood glucose less than 70 mg/dL and patient NOT ALERT or NPO and does not have IV access., After administration, attempt intravenous access and start D5W at 100 mL/hr. Repeat blood glucose in 15 minutes x2 and notify provider. Reconstitute powder for injection by adding 1 mL of glue bone crusher-supplied sterile diluent or sterile water for injection to a vial containing 1 mg of the drug, to provide solutions containing 1 mg/mL. Shake vial gently to dissolve. glucose chewable tablet 16 g 16 g (4 tablet), Oral, PRN, Starting on Thu04/04/25 at 2007, Until Discontinued, Low blood sugar, If blood glucose is [...] 4 HOURS PRN, Starting on Thu04/04/25 at 2006, Until Discontinued, Cough heparin (porcine) injection (CANCELED) PRN, Starting on Paige 04/06/25 at 1555, Until Paige 04/06/25 at 1604, Intra-procedure(Cath) 1555 (Given - Provider: Roslyn Ricci, SERENITY) hydrALAZINE (APRESOLINE) injection 10 mg 10 mg, IntraVENous, EVERY 4 HOURS PRN, Starting on 04/04/25 at 2008, Until Discontinued, SBP > 150 iopamidol (ISOVUE-370) 76 % injection 75 mL (COMPLETED) 75 mL, IntraVENous, IMG ONCE PRN, 1 dose, Starting on 04/04/25 at 1855, Until 04/04/25 at 1903, Other 1903 (Given - Provider: Soila Hernandez) iopamidol (ISOVUE-370) 76 % injection (CANCELED) PRN, Starting on Paige 04/06/25 at 1604, Until Paige 04/06/25 at 1604, Intra-procedure(Cath) 1604 (Given - Provider: Yusef Marquez MD) lidocaine 1 % injection (CANCELED) PRN, Starting on Paige 04/06/25 at 1550, Until Paige 04/06/25 at 1604, Intra-procedure(Cath) 1550 (Given - Provider: Yusef Marquez MD) nitroGLYCERIN injection (CANCELED) PRN, Starting on Paige 04/06/25 at 1551, Until Paige 04/06/25 at 1604, Intra-procedure(Cath) 1551 (Given - Provider: Yusef Marquez MD) ondansetron (ZOFRAN) injection 4 mg(Linked Group 4) 4 mg, IntraVENous, EVERY 6 HOURS PRN, Starting on Thu04/04/25 at 2001, Until Discontinued, Nausea, Vomiting, Administer if oral route cannot be used. ondansetron (ZOFRAN-ODT) disintegrating tablet 4 mg(Linked Group 4) 4 mg, Oral, EVERY 8 HOURS PRN, Starting on Thu04/04/25 at 2001, Until Discontinued, Nausea, Vomiting polyethylene glycol (GLYCOLAX) packet 17 g 17 g, Oral, DAILY PRN, Starting on Thu04/04/25 at 2001, Until Discontinued, Constipation, First line therapy for constipation sodium chloride flush 0.9 % injection 5-40 mL 5-40 mL, IntraVENous, PRN, Starting on Thu04/04/25 at 2002, Until Discontinued, Line Care, After every IV line use, [...] IMG ONCE PRN, 1 dose, Starting on Thu04/06/25 at 1048, Until Thu04/06/25 at 1122, Other 1122 (Given - Provider: Janusz Choi) technetium sestamibi (CARDIOLITE) injection 30 millicurie (COMPLETED) 30 millicurie, IntraVENous, IMG ONCE PRN, 1 dose, Starting on Thu04/06/25 at 1048, Until Paige 04/06/25 at 1122, Other 1122 (Given - Provider: Janusz Choi) verapamil (ISOPTIN) injection (CANCELED) PRN, Starting on Thu04/06/25 at 1552, Until Paige 04/06/25 at 1604, Intra-procedure(Cath) 1552 (Given - Provider: Yusef Marquez MD) No Frequency Medication Order 04/04/2025 04/05/2025 04/06/2025 albuterol sulfate HFA (PROVENTIL;VENTOLIN;PROAIR) 108 (90 Base) MCG/ACT inhaler 1 dose, Starting on Thu04/06/25 at 1411, Until Thu04/07/25 at 0214, Myra Slater: cabinet override, Myra Slater: cabinet [...] PRN, Starting on Thu04/04/25 at 2001, Until Discontinued, Pain Mild (1-3), allowed for higher pain score per patient request, Fever, For temp greater than 100.4 F (38 C), Maximum dose of acetaminophen is 4000 mg from all sources in 24 hours. Or acetaminophen (TYLENOL) suppository 650 mgJump to med 650 mg, Rectal, EVERY 6 HOURS PRN, Starting on Thu04/04/25 at 2001, Until Discontinued, Pain Mild (1-3), allowed for higher pain [...] PRN, Starting on Thu04/04/25 at 2001, Until Discontinued, Nausea, Vomiting Or ondansetron (ZOFRAN) injection 4 mgJump to med 4 mg, IntraVENous, EVERY 6 HOURS PRN, Starting on Thu04/04/25 at 2001, Until Discontinued, Nausea, Vomiting, Administer if oral route cannot be used. FOR RECORDS PERTAINING TO PATIENTS WHO ARE [...] BE BASED ON THE PRIMARY CLINICAL RECORDS. [employer] [facility]. provides no warranty or guarantee of the accuracy or completeness of information in this document.
[2025-04-12 19:30] VITALS: BP 192/96; PULSE 84; O2SAT 94; BMI 22.3
[2025-04-12 19:59] VITALS: PULSE 66; O2SAT 100
[2025-04-12] MEDS: IPRATROPIUM/ALBUTEROL SULFATE 3 ML AMPUL.NEB IH (19:59)
--- NOTE | 2025-04-12 20:14 | XR_ITS ---
[place] [id number] Patient Name: CONSTANZA BARRETO MRN: [id number] date: 1955 Sex: M Assigned Patient Location: ER Current Patient Location: ED.MAIN Accession/Order Number: [id number] Exam Date: 04/12/2025 20:54 Report Date: 04/12/2025 20:55 At the request of: MILADIS MELARA MD Procedure: XR chest 1V Plain film chest Single view HISTORY: Shortness of breath COMPARISON: 03/30/2025 FINDINGS: SUPPORT DEVICES: None POSTSURGICAL CHANGES: None HEART: Within normal limits PULMONARY DANIEL: Within normal limits MEDIASTINUM: Unremarkable LUNGS AND PLEURA: No acute lung process, pleural effusion or pneumothorax identified. BONY STRUCTURES: Old rib fractures ADDITIONAL FINDINGS None XR/XR chest 1V IMPRESSION: No acute process. Impression dictated by: Abiodun Keys M.D. 04/12/2025 8:55 PM Dictation Location: [facility] Electronically authenticated by: [id number] Y Date: 04/12/2025 20:55
--- NOTE | 2025-04-12 20:23 | ED_ITS ---
HPI HPI - General Adult General Chief complaint: Shortness of Breath/Dyspnea Stated complaint: SOB, PAIN IN R FOOT Time Seen by Provider: 04/12/25 19:33 Source: patient Mode of arrival: Wheelchair Limitations: no limitations History of Present Illness HPI narrative: This 69-year-old male who is well-known to this emergency department and has a history of COPD and continues to smoke and has been seen multiple times for foot pain and has hypertrophic toenails but has not followed up with his family physician or podiatry presents for evaluation of ongoing shortness of breath and pain in the right foot. The patient is poorly kempt. He has a Josue catheter at this time that is draining onto the floor and soaking his foot and foot wear. He denies any fever or chills. He denies any chest pain. He has a history of hypertension and has medication at home but states he does not like taking pills. The last time the patient was here I gave him a prescription for a nebulizer machine but he states he did not have the money to get that filled. He is also out of her albuterol MDI. He assures me that if I give him another prescription for an MDI that he will get it filled and will shredder picker the nebulizer machine at the pharmacy. He also assures me that he will follow-up with podiatry to get his nails clipped. Related Data Home Medications ?Medication ?Instructions ?Recorded ?Confirmed albuterol sulfate 90 mcg/actuation 2 inh inhalation Q6 H PRN shortness 03/13/24 02/20/25 aerosol inhaler of breath or wheezing glimepiride 2 mg tablet 2 mg PO DAILY hyperglycemia 03/11/25 03/11/25 Previous Rx's ?Medication ?Instructions ?Recorded ipratropium 0.5 mg-albuterol 3 mg 3 ml inhalation Q4H PRN shortness 12/10/24 (2.5 mg base)/3 mL nebulization of breath #90 mL soln albuterol sulfate 2.5 mg/3 mL 2.5 mg (3 mL) inhalation Q6H PRN 01/24/25 (0.083 %) solution for nebulization shortness of breat h or wheezing #90 mL losartan 100 mg tablet 100 mg PO DAILY #30 tabs 06/16 Allergies Allergy/AdvReac Type Severity Reaction Status Date / Time No Known Drug Allergies Allergy Verified 04/12/25 19:37 Opioid HPI Opioid Management Most Recent Opioid Data: Last Pain Scale 4 Today, 20:36 Last MAR Pain Assessment Today, 20:36 Last ORT Total Score 0 01/29/24, 06:36 Last ORT Risk Category Low Risk 01/29/24, 06:36 Review of Systems ROS Status of ROS 10 or more systems reviewed and unremark able except as noted in history and below PFSH PFSH Medical History Hypokalemia ?E87.6 - Hypokalemia (ICD-10) New onset type 2 diabetes mellitus ?E11.9 - Type 2 diabetes mellitus without complications (ICD-10) Lower extremity edema ?R60.0 - Localized edema (ICD-10) Edema ?R60.9 - Edema, unspecified (ICD-10) Acute hyperglycemia ?R73.9 - Hyperglycemia, unspecified (ICD-10) Tobacco abuse ?Z72.0 - Tobacco use (ICD-10) HTN (hypertension) ?I10 - Essential (primary) hypertension (ICD-10) Community acquired pneumonia ?J18.9 - Pneumonia, unspecified organism (ICD-10) Chronic obstructive pulmonary disease ?J44.9 - Chronic obstructive pulmonary disease, unspecified (ICD-10) Acute exacerbation of chronic obstructive pulmonary disease (COPD) ?J44.1 - Chronic obstructive pulmonary disease with (acute) exacerbation (ICD-10) RLL pneumonia ?J18.9 - Pneumonia, unspecified organism (ICD-10) COPD (chronic obstructive pulmonary disease) ?J44.9 - Chronic obstructive pulmonary disease, unspecified (ICD-10) Surgical History Hx of tonsillectomy ?Z90.89 - Acquired absence of other organs (ICD-10) Family History Mother Family history of cancer Family history of hypertension Father Family history of cancer Social History Within the past year, how often did you have a drink containing alcohol: 4 or more times a week Within the past year, how many standard drinks containing alcohol did you have on a typical day: 3 or 4 Within the past year, how often did you have six or more drinks on one occasion: less than monthly Total score: 3 Score interpretation: A score of 4 or more indicates drinking is likely to affect patient's safety. Smoking status: Current every day smoker Non-prescribed substance use: cannabis (any form) Previous occupational history: retired Highest level of school completed/degree received: high school graduate Are you now , , , , never or living with a partner: In a typical week, how many times do you talk on the telephone with family, friends, or neighbors: twice per week How often do you get together with friends or relatives: once per week How often do you attend mandaen or religion services: never Do you belong to any clubs or organizations such as mandaen groups unions, [employer] or athletic groups, or school groups: no Total score: 1 Score interpretation: A score of less than or equal to 1 indicates the most socially isolated. Little interest or pleasure in doing things: not at all Feeling down, depressed, or hopeless: not at all Feel stressed/tense/nervous/anxious/difficulty sleeping: not at all Do you think of yourself as: straight/heterosexual Gender Identity: male Exam Narrative Exam Narrative: Vital signs and Nursing Notes reviewed: Patient has a normal pulse, he is tachypneic with a respiratory of 26 and is at his baseline with a pulse ox of 94% on room air. Blood pressure is elevated today at 192/96 General: Awake, alert, oriented, no acute distress, sitting in a chair watching TV HEENT: Normocephalic atraumatic, mucous membranes are moist and pink, eyes are clear, normal conjunctiva, vision is grossly intact Chest: Coarse breath sounds with occasional expiratory wheezing, no rhonchi or rales CVS: Regular rate and rhythm S1-S2, no murmurs rubs or gallops, pulses are brisk and equal bilaterally Extremities; again is noted hypertrophic poorly kempt feet with mild swelling of the right foot. Feet are warm and sensate with normal pulses. There is no swelling of the calfs, no palpable cords or signs of DVT. Skin: Normal in appearance without rash,pallor, petechiae or purpura Neuro: No focal deficits Constitutional Vital Signs, click to edit/add: Last Vital Signs Pulse 66 04/12/25 19:59 Resp 18 04/12/25 19:59 BP 192/96 H 04/12/25 19:30 Pulse Ox 100 04/12/25 19:59 O2 Del Method Room Air 04/12/25 19:59 Course Vital Signs Vital signs: Vital Signs Pulse Rate 84 04/12/25 19:30 Respiratory Rate 26 H 04/12/25 19:30 Blood Pressure 192/96 H 04/12/25 19:30 Pulse Oximetry 94 L 04/12/25 19:30 Oxygen Delivery Method Room Air 04/12/25 19:30 Pulse Rate 66 04/12/25 19:59 Respiratory Rate 18 04/12/25 19:59 Blood Pressure 192/96 H 04/12/25 19:30 Pulse Oximetry 100 04/12/25 19:59 Oxygen Delivery Method Room Air 04/12/25 19:59 Medical Decision Making MDM Narrative Medical decision making narrative: This 69-year-old male with a history of COPD and hypertension who is seen here frequently for COPD exacerbations and noncompliant with his blood pressure medications and also has a history of chronic foot pain with hypertrophic toenails presents for evaluation of COPD and right foot pain. He has extremely long hypertrophic toenails and his feet are dirty. I soak his feet in warm Hibiclens water to help clean his feet. His Josue catheter was running onto the floor and the tubing was disconnected. This was addressed by the nursing staff. He was given a DuoNeb treatment with clinical improvement and declines the need for another 1. He is out of his albuterol MDI and was given an albuterol MDI prior to being discharged. He has blood pressure medication at home that he is not compliant with because he states he does not like to take pills because he has friends who have after taking pills. He is a patient of the [facility] and has a local family physician. He will be referred to outpatient podiatry for further evaluation and treatment of his hypertrophic toenails as I explained to him I do not have the equipment to trim his nails in the emergency department. A 1 view chest x-ray was ordered and he was medicated with ibuprofen for his foot pain. Chest x-ray does not show any acute pulmonary infiltrate, does show chronic changes. There is a normal mediastinum and normal cardiac borders. He does not have any calf swelling or tenderness. He is otherwise stable for discharge. Lab Data Lab results reviewed: Yes I reviewed the patient's lab results Discharge Plan Discharge Chief Complaint: Shortness of Breath/Dyspnea Clinical Impression: COPD (chronic obstructive pulmonary disease), Bilateral foot pain, Enlarged and hypertrophic nails, Hypertension Patient Disposition: Home, Self-Care Time of Disposition Decision: 20:48 Condition: Good Prescriptions / Home Meds: No Action albuterol sulfate 90 mcg/actuation HFA aerosol inhaler 2 inh inhalation Q6H PRN (Reason: shortness of breath or wheezing) albuterol sulfate 2.5 mg /3 mL (0.083 %) solution for nebulization 2.5 mg inhalation Q6H PRN (Reason: shortness of breath or wheezing) Qty: 90 0RF glimepiride 2 mg tablet 2 mg PO DAILY Patient Comments: 03/11/2025 Rx Instructions: daily x 15 days. Follow up with your PCP ipratropium-albuterol 0.5 mg-3 mg(2.5 mg base)/3 mL solution for nebulization 3 ml inhalation Q4H PRN (Reason: shortness of breath) Qty: 90 0RF Rx Instructions: until breathing returns to target peak flow/parameters losartan 100 mg tablet 100 mg PO DAILY Qty: 30 0RF Print Language: Yakut Instructions: COPD (Chronic Obstructive Pulmonary Disease) (ED), Chronic Hypertension (ED) Referrals: Steven Dugan DPM [Physician, Podiatry] - As soon as possible SERG DUENAS [Primary Care Provider, Unknown] - 1 week
[2025-04-12] MEDS: IBUPROFEN 600 MG TABLET PO (20:36)
[2025-04-12] MEDS: ALBUTEROL SULFATE 200 PUFF/6.7 GM INHALER IH (20:52)
--- NOTE | 2025-04-12 20:53 | RESP.RT ---
Albuterol MDI given to patient take home.
[2025-04-12 21:01] VITALS: O2SAT 93
== END 2025-04-12 21:04 | disposition home or self-care (01) ==
PROVIDERS: Emergency Provider Emergency Medicine
DX: J44.9 Chronic obstructive pulmonary disease, unspecified (principal); M79.671 Pain in right foot; M79.672 Pain in left foot; R06.02 Shortness of breath; I10 Essential (primary) hypertension; Z79.899 Other long term (current) drug therapy; L60.2 Onychogryphosis; F17.200 Nicotine dependence, unspecified, uncomplicated; Z91.148 Patient's other noncompliance with medication regimen for other reason
CPT/HCPCS: 71045; 94640; 99283